=== PATIENT | female | born 1955 | race Caucasian/White ===

== ENCOUNTER → 2018-04-21 | Outpatient (CLI) | payer MEDICARE, MEDICAID ==
[~2018-04-21] VITALS: Ht 154.9 cm; Wt 133.8 kg
[~2018-04-21] MED LIST: ACET-2650 PO; ASPI-586 PO; CANA100T PO; CARV12.53 PO; ENAL20TA PO; FISH1CAP15 PO; GABA-486 PO; GLUC-173 PO; MAGN400T39 PO; METF-399 PO; OMEP20CA12 PO; POTA10CA43 PO; REGADENOSON 0.4 MG/5 ML SYR (LEXISCAN) IV ONE; ROPI2TAB4 PO; SIMV20TA3 PO; VNL75T PO
[2018-04-21] MEDS: CATHETER FLUSH 10 ML SYR IV PRN ×2 (07:53→09:06)
[2018-04-21 09:04] VITALS: BP 145/74
--- NOTE | 2018-04-21 14:08 | Cardiology Stress Test Report ---
Stress Test Report Type of NM Stress Test: Test Type: LEXISCAN 0.4MG/5ML Date of Procedure/Referring: Date of Procedure: Apr 21, 2018 PCP Eliane Helms MD Admitting Physician Tu Landeros MD Indications: Preoperative cardiovascular risk assessment. Baseline Heart Rate: 54 Baseline Blood Pressure: Blood Pressure Systolic: 145 Blood Pressure Diastolic: 74 Baseline EKG: Baseline EKG: sinus rhythm Summary & Conclusion: Summary: The patient was brought to the stress lab after informed consent was taken. Stress test was performed according to the Lexiscan protocol. 0.4 mg of IV Lexiscan was given. Low-grade exercise was performed. Baseline EKG showed sinus rhythm at 54 BPM. Initial blood pressure was 145/74 mmHg. Maximum heart rate was 83 bpm and blood pressure 115/59 mmHg. Patient did not have any chest pain, arrhythmias or ST segment changes during the stress test. 10.41 mCi of Myoview were given for rest imaging and 32.9 mCi of Myoview given for stress imaging. Transient ischemic dilatation score 1.14, EF 69 percent. Normal wall motion. Mild to moderate intermediate intensity anterior reversible defect. Conclusion: Pharmacological stress test was negative for ischemia. Normal LV function with no wall motion abnormalities. Evidence of anterior ischemia. Coronary angiography is recommended. Eliane HELMS MD Apr 21, 2018 2:08 pm
== END ==
LOC: CARD 07:06
PROVIDERS: ATTEND Internal Medicine Interventional Cardiology
DX: Z01.810 Encounter for preprocedural cardiovascular examination (principal); E11.9 Type 2 diabetes mellitus without complications; I10 Essential (primary) hypertension; E78.5 Hyperlipidemia, unspecified; E66.01 Morbid (severe) obesity due to excess calories; R94.31 Abnormal electrocardiogram [ECG] [EKG]; I25.9 Chronic ischemic heart disease, unspecified
CPT/HCPCS: 78452; 93017; 93306

== ENCOUNTER 2018-04-25 11:32 | Day surgery (SDC) | payer MEDICARE, MEDICAID ==
[2018-04-25] VITALS (11 sets, daily range): BP systolic 94–130; BP diastolic 40–63
[~2018-04-25] VITALS: Ht 154.9 cm; Wt 133.8 kg
--- OUTSIDE RECORDS SUMMARY | 2018-04-25 11:36 | XMS REPORT ---
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 Name Role Phone MADDY BROWNLEE Unavailable PROBLEMS Type Condition ICD9-CM Code [id number] Code Onset Dates Condition Status SNOMED Code Problem Depressive disorder, not elsewhere classified F32.9 Active [id number] ALLERGIES No Information ENCOUNTERS Encounter Location Date Diagnosis [facility] [address] [facility] [id number] [address] Feb, Depressive disorder, not elsewhere classified F32.9 IMMUNIZATIONS No Known Immunizations SOCIAL HISTORY Never Assessed REASON FOR VISIT Bariatric Eval PLAN OF CARE Activity Details Follow Up prn Reason:BH F/U VITAL SIGNS MEDICATIONS Unknown Medications RESULTS No Results PROCEDURES Procedure Date Ordered Result Body Site Psych diagnostic evaluation, new patient Feb 21, 2018 INSTRUCTIONS MEDICATIONS ADMINISTERED No Known Medications
--- OUTSIDE RECORDS SUMMARY | 2018-04-25 11:36 | XMS REPORT ---
Author Author [employer] [facility] Medical Staff Organization [facility] Address [address], [place] [address] Phone [phone] Summary purpose TRANSITION OF CARE AUTO GENERATION Chief Complaint and Reason for Visit No authorized Reason for Visit (Admitting Diagnosis) is available for this visit. Problem list No authorized problems tracked for continuity of care are available for this visit. Encounters No authorized problems tracked for encounter diagnoses are available for this visit. Medications No medications recorded for this patient visit Allergies, adverse reactions, alerts Allergen Category Ingredient Status Reaction Severity Onset KEFLEX Drug Allergy KEFLEX Confirmed or Verified ITCHING Doxycycline Drug Allergy Doxycycline Confirmed or Verified ITCHING Sulindac Drug Allergy Sulindac Confirmed or Verified ITCHING Tricor Drug Allergy Tricor Confirmed or Verified itching-shortness of breathe Tricor Drug Allergy Fenofibrate Confirmed or Verified itching-shortness of breathe Vibra-Tabs Drug Allergy Vibra-Tabs Confirmed or Verified itching Vibra-Tabs Drug Allergy doxycycline Confirmed or Verified itching Ambien Drug Allergy Ambien Confirmed or Verified Ambien Drug Allergy Zolpidem Confirmed or Verified Immunizations No immunizations recorded for this patient visit Relevant diagnostic tests and/or laboratory data RESULTS Radiology Results [id number] Bilateral Screen Digital Mammo PACs Image DATE OF EXAM: 2014 [facility] 0845-BILAT SCREEN DIG MAMMO : RADIOLOGY REPORT DATE OF SERVICE: 01/29/15 HISTORY: Screening exam BILATERAL DIGITAL SCREENING MAMMOGRAM WITH iCAD SecondLook 7.2-H+ 0850 HOURS There are fatty involutional changes. There are no masses or grouped microcalculi. There are numerous scattered benign breast calcifications bilaterally. There is no distortion or asymmetry. The appearance is stable when compared with 01/15/2014 and 07/06/2011. IMPRESSION: Negative mammograms BI-RADS I. MD ANTWAN Burns/sd01/29/2015 11:39:00 / 01/29/2015 12:12:45 cc:Dr. Tu Landeros This document has been electronically Signed by: On: DATE OF EXAM: 2014 [facility] 0845-BILAT SCREEN DIG MAMMO : RADIOLOGY REPORT DATE OF SERVICE: 01/29/15 HISTORY: Screening exam BILATERAL DIGITAL SCREENING MAMMOGRAM WITH iCAD SecondLook 7.2-H+ 0850 HOURS There are fatty involutional changes. There are no masses or grouped microcalculi. There are numerous scattered benign breast calcifications bilaterally. There is no distortion or asymmetry. The appearance is stable when compared with 01/15/2014 and 07/06/2011. IMPRESSION: Negative mammograms BI-RADS I. Jez Johnson MD Tan/sd01/29/2015 11:39:00 / 01/29/2015 12:12:45 cc:Dr. Tu Landeros This document has been electronically Signed by: JEZ JOHNSON On: 20141:59P Result Amended on 2015-01-29 at 13:59:11. Previous status was [place]. History of procedures No procedures recorded for this patient visit. Functional status No functional or cognitive status observations are available for this visit. Vital signs No authorized vital signs are available for this visit. Social history No Social History or smoking status observations were recorded for this visit. ( Unknown if ever smoked.) Treatment Plan No treatment plan text is available for this visit. Hospital discharge instructions No discharge instruction text is available for this visit.
--- OUTSIDE RECORDS SUMMARY | 2018-04-25 11:36 | XMS REPORT ---
Author Author [employer] [facility] Medical Staff Organization [facility] Address [address] [place], [place] [id number] Phone [phone] Summary purpose TRANSITION OF CARE AUTO GENERATION Chief Complaint and Reason for Visit Admit Diagnosis 1 OT SCREEN MAMMOGRAM Problem list No authorized problems tracked for [...] tests and/or laboratory data RESULTS Radiology Results [id number] Bilateral Screen Digital Mammo PACs Image DATE OF EXAM: 2014 [facility] 0845-BILAT SCREEN DIG MAMMO : RADIOLOGY REPORT [...] IMPRESSION: Negative mammograms BI-RADS I. MD ANTWAN Burns/in01/29/2015 11:39:00 / 01/29/2015 12:12:45 cc:Dr. Tu Sharma This document has been electronically Signed by: On: DATE OF EXAM: 2014 [facility] 0845-BILAT SCREEN DIG MAMMO : RADIOLOGY REPORT [...] IMPRESSION: Negative mammograms BI-RADS I. MD ANTWAN Burns/in01/29/2015 11:39:00 / 01/29/2015 12:12:45 cc:Dr. Tu Sharma This document has been electronically Signed by: MAYRA DICKERSON On: 20141:59P Result Amended on 2015-01-29 at 13:59:11. Previous status was [place]. History of procedures Procedure Code Code Type Description Date Performed Performing Physician 76644 CPT-4 MAMMOGRAM, SCREENING 01-29-2015 TU SHARMA [id number] CPT-4 COMP SCREEN MAMMOGRAM ADD-ON 01-29-2015 TU SHARMA Functional status No functional or cognitive status [...]
--- OUTSIDE RECORDS SUMMARY | 2018-04-25 11:38 | XMS REPORT | Clinical Summary ---
Author Author Admin, SACHI Organization [employer] Address Unknown Phone Unavailable Allergies, Adverse Reactions, Alerts Allergy Name Reaction Description Start Date Severity Status Provider GLIMPERIDE Critical Active Lesli Kellogg APRN AMBIEN migraine h/a Critical Active Luisa Reynolds RN AMBEIN migraine h/a Moderate No Longer Active Tu Landeros MD TRICOR rash, trouble breathing Critical Active Tu Landeros MD SULINDAC Critical Active Tu Landeros MD DOXYCYCLINE Critical Active Tu Landeros MD KEFLEX Critical Active Tu Landeros MD Conditions or Problems Problem Name Problem Code Onset Date Status Entry Date Provider Comment Standard Description Annotate Depression 311 Active Tu Landeros MD Depressive disorder, not elsewhere classified HYPERLIPIDEMIA, OTHER UNSPECIFIED 272.4 Inactive Tu Landeros MD Other and unspecified hyperlipidemia Hyperlipidemia 272.4 Refinement Tu Landeros MD Other and unspecified hyperlipidemia Mixed hyperlipidemia 272.4 Active Tu Landeros MD Other and unspecified hyperlipidemia POSTMENOPAUSAL BLEEDING 627.1 Resolved Elvira Cervantes MD PhD Postmenopausal bleeding DIABETES MELLITUS, TYPE II 250.00 Inactive Tu Landeros MD Diabetes mellitus without mention of complication, type II or unspecified type, not stated as uncontrolled Diabetes mellitus, type II, controlled 250.00 Inactive Tu Landeros MD Diabetes mellitus without mention of complication, type II or unspecified type, not stated as uncontrolled Type 2 diabetes mellitus with other specified complication 250.80 Active Tu Landeros MD Diabetes mellitus with other specified manifestations, type II or unspecified type, not stated as uncontrolled HEALTH SCREENING V70.0 Inactive Elvira Cervantes MD PhD Routine general medical examination at a health care facility SLEEP APNEA, OBSTRUCTIVE 327.23 Inactive Tu Landeros MD Obstructive sleep apnea (adult) (pediatric) Obstructive sleep apnea 327.23 Active Tu Landeros MD Obstructive sleep apnea (adult) (pediatric) INSOMNIA, PERSISTENT 307.42 Resolved Tu Landeros MD Persistent disorder of initiating or maintaining sleep GASTROENTERITIS 558.9 Resolved Tu Landeros MD Other and unspecified noninfectious gastroenteritis and colitis DIZZINESS 780.4 Resolved Tu Landeros MD Dizziness and giddiness BENIGN PAROXYSMAL POSITIONAL VERTIGO 386.11 Resolved Tu Landeros MD Benign paroxysmal positional vertigo HYPERTENSION 401.1 Inactive Tu Landeros MD Benign essential hypertension Hypertension 401.9 Inactive Tu Landeros MD Unspecified essential hypertension Hypertension, benign essential 401.1 Active Tu Landeros MD Benign essential hypertension LEG CRAMPS, NOCTURNAL 729.82 Resolved Tu Landeros MD Cramp of limb FREQUENCY, URINARY 788.41 Correction Elvira Cervantes MD PhD Urinary frequency FEVER UNSPECIFIED 780.60 Resolved Tu Landeros MD Fever, unspecified MUSCLE SPASM 728.85 Resolved Tu Landeros MD Spasm of muscle SCIATICA 724.3 Resolved Tu Landeros MD Sciatica SHOULDER PAIN, LEFT 719.41 Resolved Tu Landeros MD Pain in joint involving shoulder region PARESTHESIA 782.0 Resolved Tu Landeros MD Disturbance of skin sensation RASH AND OTHER NONSPECIFIC SKIN ERUPTION 782.1 Resolved Tu Landeros MD Rash and other nonspecific skin eruption FATIGUE 780.79 Resolved Tu Landeros MD Other malaise and fatigue CARPAL TUNNEL SYNDROME 354.0 Resolved Tu Landeros MD Carpal tunnel syndrome ARTHRITIS 716.90 Resolved Tu Landeros MD Arthropathy, unspecified, site unspecified KNEE PAIN 719.46 Resolved Tu Landeros MD Pain in joint involving lower leg CONTUSION OF UNSPECIFIED SITE 924.9 Resolved Tu Landeros MD Contusion of unspecified site PRESSURE ULCER UNSPECIFIED SITE 707.00 Resolved Tu Landeros MD Pressure ulcer, unspecified site LOCALIZED SUPERFICIAL SWELLING MASS OR LUMP 782.2 Resolved 03/15 Tu Landeros MD Localized superficial swelling, mass, or lump HEALTH SCREENING V70.0 Inactive Shaun Sy MD Routine general medical examination at a health care facility Health screening V70.0 Refinement Tu Landeros MD Routine general medical examination at a health care facility Well Adult Exam V70.0 Active Tu Landeros MD Routine general medical examination at a health care facility ONYCHOMYCOSIS 110.1 Resolved Tu Landeros MD Dermatophytosis of nail Gastroesophageal reflux disease 530.81 Active Tu Landeros MD Esophageal reflux Restless leg syndrome 333.94 Active Tu Landeros MD Restless legs syndrome (RLS) Open wound of abdominal wall, anterior, complicated 879.3 Resolved Tu Landeros MD Open wound of abdominal wall, anterior, complicated Neuropathy, idiopathic peripheral 356.9 Active Tu Landeros MD Unspecified hereditary and idiopathic peripheral neuropathy Upper respiratory infection, viral 465.9 Resolved Shaun Sy MD Acute upper respiratory infections of unspecified site Open wound of other and unspecified parts of trunk, complicated 879.7 Resolved Tu Landeros MD Open wound of other and unspecified parts of trunk, complicated Knee pain, left, acute 719.46 Resolved Tu Landeros MD Pain in joint involving lower leg Osteoarthritis 715.90 Resolved Tu Landeros MD Osteoarthrosis, unspecified whether generalized or localized, involving unspecified site Ear pain, bilateral 388.70 Resolved Tu Landeros MD Otalgia, unspecified Hot flashes 627.2 Resolved Tu Landeros MD Symptomatic menopausal or female climacteric states Sebaceous cyst 706.2 Resolved Tu Landeros MD Sebaceous cyst Leg edema, bilateral 782.3 Active Tu Landeros MD Edema Routine gynecological examination V72.31 Active Tu Landeros MD Routine gynecological examination Upper respiratory infection, viral 465.9 Resolved Tu Landeros MD Acute upper respiratory infections of unspecified site Sinusitis - acute 461.9 Resolved Tu Landeros MD Acute sinusitis, unspecified Leg pain, left 729.5 Resolved Tu Landeros MD Pain in limb Vision impairment, both eyes, impairment level not further specified 369.20 Resolved Tu Landeros MD Moderate or severe vision impairment, both eyes, impairment level not further specified Osteoarthritis, knees, bilateral 715.96 Active Tu Landeros MD Osteoarthrosis, unspecified whether generalized or localized, involving lower leg Obesity 278.00 Inactive Tu Landeros MD Obesity, unspecified Morbid obesity 278.01 Active Tu Landeros MD Morbid obesity Pain in unspecified foot 729.5 Resolved Tu Landeros MD Pain in limb Shoulder pain, right 719.41 Resolved Tu Landeros MD Pain in joint involving shoulder region Great toe pain 729.5 Resolved Tu Landeros MD Pain in limb Hypomagnesemia 275.2 Active Tu Landeros MD Disorders of magnesium metabolism URI 465.9 Inactive eLsli Kellogg [employer] Acute upper respiratory infections of unspecified site Upper respiratory infection, viral 465.9 Resolved Tu Landeros MD Acute upper respiratory infections of unspecified site Body Mass Index 50.0-59.9 Adult Active Tu Landeros MD Body Mass Index 50.0-59.9, adult Wrist pain, left 719.43 Active Tu Landeros MD Pain in joint involving forearm POSTMENOPAUSAL BLEEDING ICD-627.1 Inactive Elvira Cervantes MD PhD HEALTH SCREENING ICD-V70.0 Inactive Elvira Cervantes MD PhD 2011 INSOMNIA, PERSISTENT ICD-307.42 Inactive Tu Landeros MD GASTROENTERITIS ICD-558.9 Inactive Tu Landeros MD DIZZINESS ICD-780.4 Inactive Tu Landeros MD BENIGN PAROXYSMAL POSITIONAL VERTIGO ICD-386.11 Inactive Tu Landeros MD LEG CRAMPS, NOCTURNAL ICD-729.82 Inactive Tu Landeros MD FREQUENCY, URINARY ICD-788.41 Inactive Elvira Cervantes MD PhD FEVER UNSPECIFIED ICD-780.60 Inactive Tu Landeros MD MUSCLE SPASM ICD-728.85 Inactive Tu Landeros MD SCIATICA ICD-724.3 Inactive Tu Landeros MD 2012 SHOULDER PAIN, LEFT ICD-719.41 Inactive Tu Landeros MD PARESTHESIA ICD-782.0 Inactive Tu Landeros MD RASH AND OTHER NONSPECIFIC SKIN ERUPTION ICD-782.1 Inactive Tu Landeros MD FATIGUE ICD-780.79 Inactive Tu Landeros MD 2012 CARPAL TUNNEL SYNDROME ICD-354.0 Inactive Tu Landeros MD ARTHRITIS ICD-716.90 Inactive Tu Lanedros MD KNEE PAIN ICD-719.46 Inactive Tu Landeros MD CONTUSION OF UNSPECIFIED SITE ICD-924.9 Inactive Tu Landeros MD PRESSURE ULCER UNSPECIFIED SITE ICD-707.00 Inactive Tu Landeros MD LOCALIZED SUPERFICIAL SWELLING MASS OR LUMP ICD-782.2 Inactive Tu Landeros MD ONYCHOMYCOSIS ICD-110.1 Tessa Landeros MD Open wound of abdominal wall, anterior, complicated ICD-879.3 Inactive Tu Landeros MD Upper respiratory infection, viral ICD-465.9 Inactive Shaun Sy MD Open wound of other and unspecified parts of trunk, complicated ICD-879.7 Inactive Tu Landeros MD Knee pain, left, acute ICD-719.46 Tessa Landeros MD Osteoarthritis ICD-715.90 Inactive Tu Landeros MD Ear pain, bilateral ICD-388.70 Inactive Tu Landeros MD Hot flashes ICD-627.2 Inactive Tu Landeros MD Sebaceous cyst ICD-706.2 Inactive Tu Landeros MD Upper respiratory infection, viral ICD-465.9 Inactive Tu Landeros MD Sinusitis - acute ICD-461.9 Inactive Tu Landeros MD Leg pain, left ICD-729.5 Inactive Tu Landeros MD Vision impairment, both eyes, impairment level not further specified ICD- 369.20 Inactive Tu Landeros MD Pain in unspecified foot ICD-729.5 Inactive Tu Landeros MD Shoulder pain, right ICD-719.41 Inactive Tu Landeros MD Great toe pain ICD-729.5 Inactive Tu Landeros MD Upper respiratory infection, viral ICD-465.9 Inactive Tu Landeros MD Medication List Medication Instructions Start Date Stop Date Generic Name NDC Status Provider Patient Instruction LOVAZA 1 GM ORAL CAPSULE 1 po qd [id number] ETHYL ESTERS 39886101053 Active Tu Landeros MD Active TRILIPIX 135 MG ORAL CAPSULE DELAYED RELEASE 1 q hs CHOLINE FENOFIBRATE 51101125882 No Longer Active Cynthia NUNOA Active TRIAMCINOLONE ACETONIDE 0.1 % EXTERNAL CREAM Apply to affected area TID for up to 2 weeks TRIAMCINOLONE ACETONIDE 71251950402 Active Tu Landeros MD Active INDOMETHACIN 50 MG ORAL CAPSULE 1 po TID PRN Pain INDOMETHACIN 56760220326 Active Tu Landeros MD Active PROMETHAZINE-CODEINE 6.25-10 MG/5ML ORAL SYRUP 5ml po q6hr PRN Cough PROMETHAZINE-CODEINE 29198643992 No Longer Active Tu Landeros MD Active AZITHROMYCIN 250 MG ORAL TABLET 2 po qd x 1, then 1 po qd x 4 AZITHROMYCIN 77630477817 No Longer Active Tu Landeros MD Active GUAIFENESIN ER 600 MG ORAL TABLET EXTENDED RELEASE 12 HOUR 1 twice a day as needed for congestion GUAIFENESIN 82108376089 No Longer Active Tu Landeros MD Active PREDNISONE 20 MG ORAL TABLET 2 po qd x 5 days PREDNISONE 44609533043 No Longer Active Tu Landeros MD Active FLUTICASONE PROPIONATE 50 MCG/ACT NASAL SUSPENSION 2 sprays/nostril qd PRN Congestion/Allergies FLUTICASONE PROPIONATE 76472298190 Active Tu Landeros MD Active NASONEX 50 MCG/ACT NASAL SUSPENSION 2 actuations in each nostril q day 07/15 MOMETASONE FUROATE 97073730083 No Longer Active Tu Landeros MD Active MAGNESIUM OXIDE 400 MG ORAL TABLET 1 po BID MAGNESIUM OXIDE 89950641646 Active Tu Landeros MD Active SIMVASTATIN 20 MG ORAL TABLET 0.5 po qHS SIMVASTATIN 51516680755 Active Tu Landeros MD Active DICLOFENAC SODIUM 75 MG ORAL TABLET DELAYED RELEASE 1 po BID PRN Pain DICLOFENAC SODIUM 35703014474 No Longer Active Tu Landeros MD Active GABAPENTIN 100 MG ORAL CAPSULE 1 po TID GABAPENTIN 09364389413 Active Tu Landeros MD Active DICLOFENAC SODIUM 50 MG ORAL TABLET DELAYED RELEASE 1 po BID PRN Pain DICLOFENAC SODIUM 51762746530 No Longer Active Tu Landeros MD Active CYCLOBENZAPRINE HCL 10 MG ORAL TABLET 1 po TID PRN Muscle Spasm CYCLOBENZAPRINE HCL 78092691088 No Longer Active Tu Landeros MD Active INVOKANA 100 MG ORAL TABLET 1 po qd CANAGLIFLOZIN 30403544748 Active José Luis Becerra MD Active GLIPIZIDE 5 MG ORAL TABLET 1 po qd GLIPIZIDE 56645425035 No Longer Active Tu Landeros MD Active VENLAFAXINE HCL 75 MG ORAL TABLET 1 po BID VENLAFAXINE HCL 98871672943 Active Tu Landeros MD Active GLIMEPIRIDE 1 MG ORAL TABLET 1 po qd GLIMEPIRIDE 62824645108 No Longer Active Tu Landeros MD Active TRUE METRIX BLOOD GLUCOSE TEST IN VITRO STRIP Test blood sugar BID Dx: E11.9 GLUCOSE BLOOD 87781101500 Active Tu Landeros MD Active TRUE METRIX AIR GLUCOSE METER w/Device KIT Test blood glucose BID Dx: E11.9 BLOOD GLUCOSE MONITORING SUPPL 16375485412 Active Tu Landeros MD Active TRUETEST TEST IN VITRO STRIP test blood sugar twice daily. DX 250.0 GLUCOSE BLOOD 58787085568 No Longer Active Mirna Stanley LPN Active TRUEDRAW LANCING DEVICE test blood sugar twice daily dx: 250.00 LANCET DEVICES 54988290722 No Longer Active Mirna Stanley LPN Active ENALAPRIL MALEATE 20 MG ORAL TABLET 2 po qd ENALAPRIL MALEATE 36339861847 Active Tu Landeros MD Active SUPER B COMPLEX/VITAMIN C ORAL TABLET 1 qd B COMPLEX- C 98275642856 No Longer Active Tu Landeros MD Active ASPIRIN EC 81 MG ORAL TABLET DELAYED RELEASE 1 po qd ASPIRIN 19294047034 Active Tu Landeros MD Active GLUCOSAMINE 500 MG TABS 2 po qd GLUCOSAMINE Active Tu Landeros MD Active FISH OIL 1000 MG ORAL CAPSULE 1 po qd OMEGA-3 FATTY ACIDS 14475643435 Active Tu Landeros MD Active METFORMIN HCL 1000 MG ORAL TABLET 1 po BID METFORMIN HCL 10312274656 Active Tu Landeros MD Active KLOR-CON 10 10 MEQ ORAL TABLET EXTENDED RELEASE 2 po qd POTASSIUM CHLORIDE 59395069375 Active Tu Landeros MD Active FUROSEMIDE 40 MG ORAL TABLET 1 po qd FUROSEMIDE 77323355193 Active Tu Landeros MD Active REQUIP 2 MG ORAL TABLET 1 po qHS PRN Restless legs ROPINIROLE HCL 18145343836 Active Tu Landeros MD Active REQUIP 2 MG ORAL TABLET Take one tablet at bedtime prn ROPINIROLE HCL 51762374537 No Longer Active Tu Landeros MD Active VENTOLIN HFA 108 (90 Base) MCG/ACT INHALATION AEROSOL SOLUTION 1-2 puffs every 4 hours if needed for cough/congestion ALBUTEROL SULFATE 06380993342 No Longer Active Ambika Aden APRN Active ZITHROMAX 250 MG ORAL TABLET 2 po today, then 1 po q days 2-5 AZITHROMYCIN 79140770956 No Longer Active Miranda Farah APRN Active FLONASE 50 MCG/ACT NASAL SUSPENSION 1 spray each nostril twice daily until bottle empty FLUTICASONE PROPIONATE 63751902791 No Longer Active Tu Landeros MD Active COLACE 100 MG ORAL CAPSULE 1 po BID PRN Constipation DOCUSATE SODIUM 76325600309 Active Tu Landeros MD Active TRUERESULT BLOOD GLUCOSE w/Device KIT test blood sugar twice daily dx 250.00 BLOOD GLUCOSE MONITORING SUPPL 35145477063 No Longer Active Tu Landeros MD Active TRUEDRAW LANCING DEVICE Test twice a day dx 250.0 LANCET DEVICES 67998077852 No Longer Active Tu Landeros MD Active PREDNISONE 20 MG ORAL TABLET 2 tablets once daily for 2 days, then 1 tablet once daily for 2 days PREDNISONE 89624569985 No Longer Active Tu Landeros MD Active DICLOFENAC SODIUM 50 MG ORAL TABLET DELAYED RELEASE 1 tablet by mouth three times a day as needed DICLOFENAC SODIUM 45598871176 No Longer Active Fab Morales DO Active EMBRACE BLOOD GLUCOSE TEST IN VITRO STRIP test blood sugar twice daily DX 250.0 GLUCOSE BLOOD 06704294479 No Longer Active Tu Landeros MD Active TRUETEST TEST IN VITRO STRIP test blood sugar three times daily dx: 250.00 GLUCOSE BLOOD 53267548861 No Longer Active Suze VOGEL Active TRUERESULT BLOOD GLUCOSE w/Device KIT use to test blood sugar tid dx: 250.00 BLOOD GLUCOSE MONITORING SUPPL 38305878386 No Longer Active Suzebianca VOGEL Active ALIGN 4 MG ORAL CAPSULE 1 tid PROBIOTIC PRODUCT 60999454898 No Longer Active Shaun Sy MD Active CIPRO 500 MG ORAL TABLET 1 bid x 14 days start 09-28-13 CIPROFLOXACIN HCL 40410093189 No Longer Active Shaun Sy MD Active TRAMADOL HCL 50 MG ORAL TABLET 1-2 tablets every 6 hours as needed for pain TRAMADOL HCL 56204536686 Active Tu Landeros MD Active HYDROCODONE-ACETAMINOPHEN 5-325 MG ORAL TABLET 1 tab by mouth every 6 hours as needed for pain HYDROCODONE-ACETAMINOPHEN 22928267730 No Longer Active Tu Landeros MD Active OMEPRAZOLE 20 MG ORAL CAPSULE DELAYED RELEASE 1 po q a.m. OMEPRAZOLE 53168141134 Active Tu Landeros MD Active GABAPENTIN 100 MG ORAL CAPSULE 1 po bid GABAPENTIN 89298562580 No Longer Active Tu Landeros MD Active B-12 100 MCG ORAL TABLET Take one by mouth daily CYANOCOBALAMIN 21119579651 No Longer Active Tu Landeros MD Active BACTRIM DS 800-160 MG ORAL TABLET 1 bid x 14 day start 09-28-13 SULFAMETHOXAZOLE-TRIMETHOPRIM 78712106267 No Longer Active Tu Landeros MD Active CARVEDILOL 12.5 MG ORAL TABLET 1 po BID CARVEDILOL 33934106511 Active Tu Landeros MD Active FENOFIBRATE 145 MG ORAL TABLET 1 po qd FENOFIBRATE 02438525422 No Longer Active JASPREET Perez Active OMEPRAZOLE 20 MG ORAL TABLET DELAYED RELEASE 1 PO 30 MIN BEFORE 1ST MEAL 2010 OMEPRAZOLE 09370026646 No Longer Active JASPREET Perez Active SIMVASTATIN 40 MG ORAL TABLET Take one by mouth daily SIMVASTATIN 53879431873 No Longer Active JASPREET Perez Active VENLAFAXINE HCL 75 MG ORAL TABLET 1 po BID VENLAFAXINE HCL 40690582136 No Longer Active JASPREET Perez Active CIPRO 500 MG ORAL TABLET 1 tablet by mouth twice daily CIPROFLOXACIN HCL 33581777907 No Longer Active Tu Landeros MD Active VENLAFAXINE HCL 37.5 MG ORAL TABLET 1 po BID VENLAFAXINE HCL 83991632583 No Longer Active Suze NUNOA Active LAMISIL 250 MG ORAL TABLET 1 po qd TERBINAFINE HCL 92235828113 No Longer Active Tu Landeros MD Active LORTAB 5-500 MG ORAL TABLET 1/2 to 1 tablet by mouth every 4 hours as needed for pain HYDROCODONE-ACETAMINOPHEN 30632927823 No Longer Active Tu Landeros MD Active HYDROCODONE-ACETAMINOPHEN 5-500 MG ORAL TABLET take one po Q 4-6 hours prn HYDROCODONE-ACETAMINOPHEN 01537614820 No Longer Active Tu Landeros MD Active BACTRIM DS 800-160 MG ORAL TABLET 1 po BID x 7 days SULFAMETHOXAZOLE-TRIMETHOPRIM 40666886253 No Longer Active Tu Landeros MD Active VENLAFAXINE HCL 75 MG ORAL TABLET 1 po BID VENLAFAXINE HCL 78263421902 No Longer Active Elvira Cervantes MD PhD Active TRAMADOL HCL 50 MG ORAL TABLET 1 tablets every 6 hours as needed for pain TRAMADOL HCL 74385360170 No Longer Active Tu Landeros MD Active ACCU-[place] FASTCLIX LANCETS Use to check bloodsugar three times daily as needed LANCETS 27609857140 No Longer Active Tu Landeros MD Active ACCU-[place]ED[place] KEYONA PLUS IN VITRO STRIP Use for testing bloodsugars three times daily as needed GLUCOSE BLOOD 62255958899 No Longer Active Tu Landeros MD Active ACCU-CHEK KEYONA PLUS w/Device KIT Use for testing bloodsugars three times daily as needed BLOOD GLUCOSE MONITORING SUPPL 93035213828 No Longer Active Tu Landeros MD Active SPIRONOLACTONE 25 MG ORAL TABLET 0.5 tablet by mouth daily 09/09 SPIRONOLACTONE 31283431089 No Longer Active Tu Landeros MD Active ALPRAZOLAM 0.5 MG ORAL TABLET 1 tab every 6hrs as needed ALPRAZOLAM 30856850883 No Longer Active Tu Landeros MD Active AUGMENTIN 875-125 MG ORAL TABLET 1 tab by mouth twice daily with food AMOXICILLIN-POT CLAVULANATE 39929583732 No Longer Active Tu Landeros MD Active PREDNISONE 20 MG ORAL TABLET 2 tabs daily for 3 days, 1 tab daily for 3 days, 1/2 tab daily for 2 days PREDNISONE 56981480013 No Longer Active Tu Landeros MD Active XANAX 0.5 MG ORAL TABLET 1 tablet every 6 hrs prn ALPRAZOLAM 00581298868 No Longer Active Tu Landeros MD Active PREDNISONE 20 MG ORAL TABLET 2 tabs daily for 3 days, 1 tab daily for 3 days, 1/2 tab daily for 2 days PREDNISONE 17987011463 No Longer Active Tu Landeros MD Active TRIAMCINOLONE ACETONIDE 0.1 % EXTERNAL OINTMENT Apply to affected areas TID for up to 2 weeks TRIAMCINOLONE ACETONIDE 93230112075 No Longer Active Tu Landeros MD Active LORTAB 5-500 MG ORAL TABLET 1/2 to 1 tablet by mouth every 4 hours as needed for pain HYDROCODONE-ACETAMINOPHEN 10469319863 No Longer Active Tu Landeros MD Active MULTIVITAMINS TABS Take one by mouth daily MULTIPLE VITAMIN 13910528910 No Longer Active Tu Landeros MD Active MELATONIN 5 MG ORAL TABLET Take one by mouth daily MELATONIN 59033790280 No Longer Active Tu Landeros MD Active SOMA 350 MG ORAL TABLET 1 po q 6 hours prn spasm CARISOPRODOL 53888085058 No Longer Active Tu Landeros MD Active MECLIZINE HCL 25 MG ORAL TABLET CHEWABLE 1 four times a day as needed for dizziness MECLIZINE HCL 25770718719 No Longer Active Fab Morales DO Active ANGEL BREEZE 2 TEST IN VITRO DISK test tid prn GLUCOSE BLOOD 47201387624 No Longer Active Negra Scott RN Active REGLAN 10 MG ORAL TABLET 1 po TID PRN Nausea METOCLOPRAMIDE HCL 01418674199 No Longer Active Tu Landeros MD Active METFORMIN HCL 500 MG ORAL TABLET 1 PO BID METFORMIN HCL 88028429086 No Longer Active Tu Landeros MD Active AMBIEN 10 MG ORAL TABLET 1 tab by mouth at bedtime as needed for sleep 06/10 ZOLPIDEM TARTRATE 90787627277 No Longer Active Tu Landeros MD Active FLUOXETINE HCL 40 MG ORAL CAPSULE 1 po q day FLUOXETINE HCL 71422914611 No Longer Active Mayra [place] Active TRILIPIX 135 MG ORAL CAPSULE DELAYED RELEASE 1 po qd CHOLINE FENOFIBRATE 80245266158 No Longer Active Tu Landeros MD Active AMBIEN 10 MG ORAL TABLET 1 tab by mouth at bedtime as needed for sleep 06/10 AMBIEN 10 MG ORAL TABLET 393532 ZOLPIDEM TARTRATE Inactive METFORMIN HCL 500 MG ORAL TABLET 1 PO BID METFORMIN HCL 500 MG ORAL TABLET 359176 METFORMIN HCL Inactive REGLAN 10 MG ORAL TABLET 1 po TID PRN Nausea REGLAN 10 MG ORAL TABLET 892585 METOCLOPRAMIDE HCL Inactive MECLIZINE HCL 25 MG ORAL TABLET CHEWABLE 1 four times a day as needed for dizziness MECLIZINE HCL 25 MG ORAL TABLET CHEWABLE 142975 MECLIZINE HCL Inactive SOMA 350 MG ORAL TABLET 1 po q 6 hours prn spasm SOMA 350 MG ORAL TABLET 007422 CARISOPRODOL Inactive MELATONIN 5 MG ORAL TABLET Take one by mouth daily MELATONIN 5 MG ORAL TABLET 018116 MELATONIN Inactive MULTIVITAMINS TABS Take one by mouth daily MULTIVITAMINS TABS MULTIPLE VITAMIN Inactive LORTAB 5-500 MG ORAL TABLET 1/2 to 1 tablet by mouth every 4 hours as needed for pain LORTAB 5-500 MG ORAL TABLET HYDROCODONE- ACETAMINOPHEN Inactive XANAX 0.5 MG ORAL TABLET 1 tablet every 6 hrs prn XANAX 0.5 MG ORAL TABLET 501431 ALPRAZOLAM Inactive AUGMENTIN 875-125 MG ORAL TABLET 1 tab by mouth twice daily with food AUGMENTIN 875-125 MG ORAL TABLET 034542 AMOXICILLIN-POT CLAVULANATE Inactive ALPRAZOLAM 0.5 MG ORAL TABLET 1 tab every 6hrs as needed ALPRAZOLAM 0.5 MG ORAL TABLET 925929 ALPRAZOLAM Inactive SPIRONOLACTONE 25 MG ORAL TABLET 0.5 tablet by mouth daily 09/09 SPIRONOLACTONE 25 MG ORAL TABLET 553510 SPIRONOLACTONE Inactive ACCU-CHEK KEYONA PLUS w/Device KIT Use for testing bloodsugars three times daily as needed ACCU-CHEK KEYONA PLUS w/Device KIT BLOOD GLUCOSE MONITORING SUPPL Inactive ACCU-CHEK KEYONA PLUS IN VITRO STRIP Use for testing bloodsugars three times daily as needed ACCU-CHEK KEYONA PLUS IN VITRO STRIP GLUCOSE BLOOD Inactive ACCU-CHEK FASTCLIX LANCETS Use to check bloodsugar three times daily as needed ACCU-CHEK FASTCLIX LANCETS 00289279064 LANCETS Inactive TRAMADOL HCL 50 MG ORAL TABLET 1 tablets every 6 hours as needed for pain TRAMADOL HCL 50 MG ORAL TABLET 738000 TRAMADOL HCL Inactive VENLAFAXINE HCL 75 MG ORAL TABLET 1 po BID VENLAFAXINE HCL 75 MG ORAL TABLET 904123 VENLAFAXINE HCL Inactive HYDROCODONE-ACETAMINOPHEN 5-500 MG ORAL TABLET take one po Q 4-6 hours prn HYDROCODONE-ACETAMINOPHEN 5-500 MG ORAL TABLET HYDROCODONE-ACETAMINOPHEN Inactive LORTAB 5-500 MG ORAL TABLET 1/2 to 1 tablet by mouth every 4 hours as needed for pain LORTAB 5-500 MG ORAL TABLET HYDROCODONE- ACETAMINOPHEN Inactive LAMISIL 250 MG ORAL TABLET 1 po qd LAMISIL 250 MG ORAL TABLET 890636 TERBINAFINE HCL Inactive VENLAFAXINE HCL 37.5 MG ORAL TABLET 1 po BID VENLAFAXINE HCL 37.5 MG ORAL TABLET 152873 VENLAFAXINE HCL Inactive CIPRO 500 MG ORAL TABLET 1 tablet by mouth twice daily CIPRO 500 MG ORAL TABLET 931635 CIPROFLOXACIN HCL Inactive VENLAFAXINE HCL 75 MG ORAL TABLET 1 po BID VENLAFAXINE HCL 75 MG ORAL TABLET 803268 VENLAFAXINE HCL Inactive SIMVASTATIN 40 MG ORAL TABLET Take one by mouth daily SIMVASTATIN 40 MG ORAL TABLET 890942 SIMVASTATIN Inactive OMEPRAZOLE 20 MG ORAL TABLET DELAYED RELEASE 1 PO 30 MIN BEFORE 1ST MEAL 2010 OMEPRAZOLE 20 MG ORAL TABLET DELAYED RELEASE 865517 OMEPRAZOLE Inactive FENOFIBRATE 145 MG ORAL TABLET 1 po qd FENOFIBRATE 145 MG ORAL TABLET 226248 FENOFIBRATE Inactive BACTRIM DS 800-160 MG ORAL TABLET 1 bid x 14 day start 09-28-13 BACTRIM DS 800-160 MG ORAL TABLET 747940 SULFAMETHOXAZOLE- TRIMETHOPRIM Inactive B-12 100 MCG ORAL TABLET Take one by mouth daily B-12 100 MCG ORAL TABLET CYANOCOBALAMIN Inactive GABAPENTIN 100 MG ORAL CAPSULE 1 po bid GABAPENTIN 100 MG ORAL CAPSULE 645951 GABAPENTIN Inactive HYDROCODONE-ACETAMINOPHEN 5-325 MG ORAL TABLET 1 tab by mouth every 6 hours as needed for pain HYDROCODONE-ACETAMINOPHEN 5-325 MG ORAL TABLET 894067 HYDROCODONE-ACETAMINOPHEN Inactive CIPRO 500 MG ORAL TABLET 1 bid x 14 days start 814 CIPRO 500 MG ORAL TABLET 566099 CIPROFLOXACIN HCL Inactive ALIGN 4 MG ORAL CAPSULE 1 tid ALIGN 4 MG ORAL CAPSULE PROBIOTIC PRODUCT Inactive TRUERESULT BLOOD GLUCOSE w/Device KIT use to test blood sugar tid dx: 250.00 TRUERESULT BLOOD GLUCOSE w/Device KIT BLOOD GLUCOSE MONITORING SUPPL Inactive TRUETEST TEST IN VITRO STRIP test blood sugar three times daily dx: 250.00 TRUETEST TEST IN VITRO STRIP GLUCOSE BLOOD Inactive EMBRACE BLOOD GLUCOSE TEST IN VITRO STRIP test blood sugar twice daily DX 250.0 EMBRACE BLOOD GLUCOSE TEST IN VITRO STRIP GLUCOSE BLOOD Inactive DICLOFENAC SODIUM 50 MG ORAL TABLET DELAYED RELEASE 1 tablet by mouth three times a day as needed DICLOFENAC SODIUM 50 MG ORAL TABLET DELAYED RELEASE 592077 DICLOFENAC SODIUM Inactive PREDNISONE 20 MG ORAL TABLET 2 tablets once daily for 2 days, then 1 tablet once daily for 2 days PREDNISONE 20 MG ORAL TABLET 148732 PREDNISONE Inactive TRUEDRAW LANCING DEVICE Test twice a day dx 250.0 TRUEDRAW LANCING DEVICE LANCET DEVICES Inactive TRUERESULT BLOOD GLUCOSE w/Device KIT test blood sugar twice daily dx 250.00 TRUERESULT BLOOD GLUCOSE w/Device KIT BLOOD GLUCOSE MONITORING SUPPL Inactive FLONASE 50 MCG/ACT NASAL SUSPENSION 1 spray each nostril twice daily until bottle empty FLONASE 50 MCG/ACT NASAL SUSPENSION [id number] FLUTICASONE PROPIONATE Inactive VENTOLIN HFA 108 (90 Base) MCG/ACT INHALATION AEROSOL SOLUTION 1-2 puffs every 4 hours if needed for cough/congestion VENTOLIN HFA 108 (90 Base) MCG/ACT INHALATION AEROSOL SOLUTION ALBUTEROL SULFATE Inactive REQUIP 2 MG ORAL TABLET Take one tablet at bedtime prn REQUIP 2 MG ORAL TABLET 901954 ROPINIROLE HCL Inactive SUPER B COMPLEX/VITAMIN C ORAL TABLET 1 qd SUPER B COMPLEX/VITAMIN C ORAL TABLET 20016417519 B COMPLEX-C Inactive TRUEDRAW LANCING DEVICE test blood sugar twice daily dx: 250.00 TRUEDRAW LANCING DEVICE LANCET DEVICES Inactive TRUETEST TEST IN VITRO STRIP test blood sugar twice daily. DX 250.0 TRUETEST TEST IN VITRO STRIP GLUCOSE BLOOD Inactive CYCLOBENZAPRINE HCL 10 MG ORAL TABLET 1 po TID PRN Muscle Spasm CYCLOBENZAPRINE HCL 10 MG ORAL TABLET 982280 CYCLOBENZAPRINE HCL Inactive DICLOFENAC SODIUM 50 MG ORAL TABLET DELAYED RELEASE 1 po BID PRN Pain DICLOFENAC SODIUM 50 MG ORAL TABLET DELAYED RELEASE 194061 DICLOFENAC SODIUM Inactive DICLOFENAC SODIUM 75 MG ORAL TABLET DELAYED RELEASE 1 po BID PRN Pain DICLOFENAC SODIUM 75 MG ORAL TABLET DELAYED RELEASE 836530 DICLOFENAC SODIUM Inactive NASONEX 50 MCG/ACT NASAL SUSPENSION 2 actuations in each nostril q day 07/15 NASONEX 50 MCG/ACT NASAL SUSPENSION 3283706 MOMETASONE FUROATE Inactive GUAIFENESIN ER 600 MG ORAL TABLET EXTENDED RELEASE 12 HOUR 1 twice a day as needed for congestion GUAIFENESIN ER 600 MG ORAL TABLET EXTENDED RELEASE 12 HOUR GUAIFENESIN Inactive AZITHROMYCIN 250 MG ORAL TABLET 2 po qd x 1, then 1 po qd x 4 AZITHROMYCIN 250 MG ORAL TABLET 968336 AZITHROMYCIN Inactive PROMETHAZINE-CODEINE 6.25-10 MG/5ML ORAL SYRUP 5ml po q6hr PRN Cough PROMETHAZINE-CODEINE 6.25-10 MG/5ML ORAL SYRUP 612651 PROMETHAZINE-CODEINE Inactive TRILIPIX 135 MG ORAL CAPSULE DELAYED RELEASE 1 q hs TRILIPIX 135 MG ORAL CAPSULE DELAYED RELEASE 122665 CHOLINE FENOFIBRATE Inactive TRIAMCINOLONE ACETONIDE 0.1 % EXTERNAL OINTMENT Apply to affected areas TID for up to 2 weeks TRIAMCINOLONE ACETONIDE 0.1 % EXTERNAL OINTMENT 3189997 TRIAMCINOLONE ACETONIDE Inactive PREDNISONE 20 MG ORAL TABLET 2 tabs daily for 3 days, 1 tab daily for 3 days, 1/2 tab daily for 2 days PREDNISONE 20 MG ORAL TABLET 811039 PREDNISONE Inactive PREDNISONE 20 MG ORAL TABLET 2 tabs daily for 3 days, 1 tab daily for 3 days, 1/2 tab daily for 2 days PREDNISONE 20 MG ORAL TABLET 669431 PREDNISONE Inactive BACTRIM DS 800-160 MG ORAL TABLET 1 po BID x 7 days BACTRIM DS 800-160 MG ORAL TABLET 518052 SULFAMETHOXAZOLE-TRIMETHOPRIM Inactive ZITHROMAX 250 MG ORAL TABLET 2 po today, then 1 po q days 2-5 ZITHROMAX 250 MG ORAL TABLET 484092 AZITHROMYCIN Inactive PREDNISONE 20 MG ORAL TABLET 2 po qd x 5 days PREDNISONE 20 MG ORAL TABLET 434215 PREDNISONE Inactive Advance Directives Directive Description Start Date DISCUSSED WITH PATIENT -- NO DECISION MADE Immunizations Vaccine Administration Date Value Standard Description Seasonal influenza vaccine, injectable, containing preservative, for > 3 years old (Afluria, FluLaval, Fluzone, Fluvirin, Fluarix, Agriflu(>=18 yo)) Fluzone (>3 yrs.) [[id number]] Influenza, seasonal, injectable influenza immunization (Flu Vax) has been administered 02/22/2012 influenza virus vaccine, unspecified formulation Seasonal influenza vaccine, injectable, containing preservative, for > 3 years old (Afluria, FluLaval, Fluzone, Fluvirin, Fluarix, Agriflu(>=18 yo)) Fluzone (>3 yrs.) [[id number]] Influenza, seasonal, injectable Vital Signs Date Name Value Unit Range Description blood pressure, diastolic 82 mm[Hg] BP ac blood pressure, systolic 134 mm[Hg] BP sys height E&M 60.25 [in_us] Bdy height pulse rate E&M 69 /min Heart rate temperature E&M 96.6 [degF] Body temperature weight E&M 297.5 [lb_av] Weight Measured blood pressure, diastolic 56 mm[Hg] BP ac blood pressure, systolic 150 mm[Hg] BP sys height E&M 60.25 [in_us] Bdy height pulse rate E&M 66 /min Heart rate temperature E&M 97.3 [degF] Body temperature weight E&M 299 [lb_av] Weight Measured blood pressure, diastolic 62 mm[Hg] BP ac blood pressure, systolic 145 mm[Hg] BP sys height E&M 60.25 [in_us] Bdy height pulse rate E&M 72 /min Heart rate temperature E&M 98.2 [degF] Body temperature weight E&M 300.50 [lb_av] Weight Measured blood pressure, diastolic 60 mm[Hg] BP ac blood pressure, systolic 142 mm[Hg] BP sys height E&M 60.25 [in_us] Bdy height pulse rate E&M 60 /min Heart rate temperature E&M 97.4 [degF] Body temperature weight E&M 292 [lb_av] Weight Measured blood pressure, diastolic 67 mm[Hg] BP ac blood pressure, systolic 143 mm[Hg] BP sys height E&M 60.25 [in_us] Bdy height pulse rate E&M 51 /min Heart rate temperature E&M 96.3 [degF] Body temperature weight E&M 295.31 [lb_av] Weight Measured blood pressure, diastolic 63 mm[Hg] BP ac blood pressure, systolic 148 mm[Hg] BP sys height E&M 60.25 [in_us] Bdy height pulse rate E&M 69 /min Heart rate temperature E&M 97.6 [degF] Body temperature weight E&M 295 [lb_av] Weight Measured Diagnostic Results Date Name Value Unit Range Description Lab Report: CBC, Comp. Metabolic Panel, HGBA1C, Lipid Panel, Magnesium, ... - Chemistry sodium, serum 141 mmol/L 530-265 8707/01/16 carbon dioxide, venous blood 28.3 mmol/L 21.0-32.0 potassium, serum 4.3 mmol/L 3.5-5.2 chloride, serum 103 mmol/L 98-107 blood glucose 108 mg/dL 65-110 urea nitrogen, blood 17 mg/dL 7-18 creatinine, serum 1.11 mg/dL 0.60-1.30 alanine aminotransferase (SGPT), serum 44 U/L 12-78 aspartate aminotransferase (SGOT), serum 34 U/L 15-37 calcium, serum 8.8 mg/dL 8.5-10.1 bilirubin, serum, total 0.30 mg/dL 0.00-1.00 hemoglobin A1C, blood, as % of total hemoglobin 6.7 % 4.3-6.0 cholesterol, serum 106 mg/dL [phone]/01/16 triglyceride, serum, fasting 173 mg/dL 30-200 HDL cholesterol, serum 29 mg/dL 32-60 LDL cholesterol, serum 42 mg/dL 0-130 albumin/creatinine ratio, urine <30 mg/g Normal mg/g mg/g{creat} 0-29 Lab Report: CBC, Comp. Metabolic Panel, HGBA1C, Lipid Panel, Magnesium, ... - Hematology leukocyte count, blood 6.9 10^3/MM^3 10*3/mm3 4.6-10.2 erythrocyte (RBC) count 4.70 10^6/MM^3 10*6/mm3 3.80-5.80 hemoglobin, blood 13.4 g/dL 12.0-16.0 hematocrit, blood 42.5 % 37.0-47.0 mean corpuscular volume, RBC 90 fL 80-97 mean corpuscular hemoglobin, RBC 28.4 pg 27.0-31.2 mean corpuscular hemoglobin concentration, RBC 31.5 G/DL % 31.8- 35.4 red blood cell distribution width 12.3 % 11.6-14.8 platelet count 312 10^3/MM^3 10*3/mm3 142-424 Lab Report: CBC, Comp. Metabolic Panel, HGBA1C, Lipid Panel, Magnesium, ... - Lab microalbumin, urine 10 mg/L 0-19 Lab Report: Comp. Metabolic Panel, HGBA1C, Magnesium - Chemistry sodium, serum 142 mmol/L 417-346 8175/07/16 carbon dioxide, venous blood 29.4 mmol/L 21.0-32.0 potassium, serum 4.7 mmol/L 3.5-5.2 chloride, serum 106 mmol/L 98-107 blood glucose 130 mg/dL 65-95 urea nitrogen, blood 19 mg/dL 7-18 creatinine, serum 0.95 mg/dL 0.60-1.30 alanine aminotransferase (SGPT), serum 36 U/L 12-78 aspartate aminotransferase (SGOT), serum 28 U/L 15-37 calcium, serum 9.1 mg/dL 8.5-10.1 bilirubin, serum, total 0.20 mg/dL 0.00-1.00 hemoglobin A1C, blood, as % of total hemoglobin 6.4 % 4.3-6.0 Lab Report: Lipid Panel - Chemistry cholesterol, serum 170 mg/dL 479-517 0703/07/16 triglyceride, serum, fasting 266 mg/dL 30-200 HDL cholesterol, serum 42 mg/dL 32-60 LDL cholesterol, serum 75 mg/dL 0-130 Encounters Code Encounter Date Provider Facility CPT-71873 Level 4 Est. Patient 14:46:36 CDT Tu Landeros MD [facility] CPT-36077 Level 3 Est. Patient 10:28:05 CDT Tu Landeros MD [facility] CPT-33770 Level 3 Est. Patient 09:11:32 CDT Tu Landeros MD [facility] CPT-33804 Level 3 Est. Patient 10:13:19 [employer]ICIAN Lesli Kellogg [facility] CPT-10293 Level 4 Est. Patient 13:42:02 [employer]OELECT[employer] ELECTRICIAN Tu Landeros MD [facility] CPT-49574 Level 3 Est. Patient 14:20:36 CDT Tu Landeros MD [facility] CPT-81657 Level 4 Est. Patient 14:28:34 CDT Tu Landeros MD [facility] CPT-51663 Level 3 Est. Patient 13:33:09 CDT Tu Landeros MD [facility] CPT-62475 Level 4 Est. Patient 14:29:21 CDT Tu Landeros MD [facility] CPT-65439 Level 4 Est. Patient 09:08:17 [employer]OE[employer]LECTRICIAN Tu Landeros MD [facility] CPT-17879 Level 4 Est. Patient 14:40:19 CDT Tu Landeros MD [facility] CPT-50369 Level 4 Est. Patient 14:06:04 [employer]OE[employer] ELECTRICIAN Tu Landeros MD [facility] CPT-72391 Level 3 Est. Patient 14:05:18 [employer]OE[employer] ELECTRICIAN Tu Landeros MD [facility] CPT-10714 Level 3 Est. Patient 10:06:54 [employer] ELECTRICIAN Miranda Farah [employer] [facility] CPT-80485 Level 4 Est. Patient 13:50:18 [employer]OE[employer] ELECTRICIAN Tu Landeros MD [facility] CPT-02540 Level 3 Est. Patient 10:30:04 CDT Tu Landeros MD [facility] CPT-08822 Level 4 Est. Patient 11:03:38 CDT Tu Landeros MD [facility] CPT-36583 Level 3 Est. Patient 10:20:44 CDT Fab Morales DO [facility] CPT-92045 Level 4 Est. Patient 14:38:57 CDT Tu Landeros MD [facility] CPT-59890 Level 4 Est. Patient 14:27:39 [employer]LECTRICIAN Tu Landeros MD [facility] CPT-20975 Level 4 Est. Patient 09:45:25 CDT Tu Landeros MD [facility] CPT-44250 Level 4 Est. Patient 09:05:20 [employer]OE[employer]RICIAN Tu Landeros MD [facility] CPT-28927 Level 4 Est. Patient 14:09:06 CDT Tu Landeros MD [facility] CPT-14722 Level 3 Est. Patient 13:36:54 CDT Tu Landeros MD [facility] CPT-13521 Level 3 Est. Patient 08:59:14 CDT Tu Landeros MD [facility] CPT-70702 Level 3 Est. Patient 13:48:35 CDT Fab Morales DO [facility] CPT-02298 Level 4 Est. Patient 10:05:48 CDT Tu Landeros MD [facility] CPT-41261 Level 3 Est. Patient 13:38:42 CDT Marek BANKS [facility] CPT-25185 Level 5 Est. Patient 08:08:39 CDT Jerrica FRANCIS [facility] CPT-76030 Level 4 Est. Patient 14:23:38 CDT Tu Landeros MD [facility] CPT-15302 Level 3 Est. Patient 11:44:04 CDT Tu Landeros MD [facility] CPT-75804 Level 3 Est. Patient 11:03:20 [employer]OE[employer]RICIAN Tu Landeros MD [facility] CPT-01501 Level 3 Est. Patient 11:03:14 [employer] E[employer]RICIAN Tu Landeros MD [facility] CPT-51110 Level 3 Est. Patient 12:42:49 CDT Tu Landeros MD [facility] CPT-79222 Level 3 Est. Patient 11:52:06 CDT Tu Landeros MD [facility] CPT-55001 Level 3 Est. Patient 13:58:11 CDT Tu Landeros MD [facility] CPT-24798 Level 3 Est. Patient 17:50:07 CDT Fab Morales DO [facility] CPT-73888 Level 3 Est. Patient 12:06:29 CDT Elvira Cervantes MD PhD [facility] CPT-04121 Level 3 Est. Patient 15:50:32 CDT Tu Landeros MD [facility] CPT-73192 Level 4 Est. Patient 16:08:29 CDT Tu Landeros MD [facility] CPT-42647 Level 3 Est. Patient 16:04:19 CDT Tu Landeros MD [facility] CPT-04788 Level 3 Est. Patient 11:22:30 [employer]RICIAN Tu Landeros MD [facility] CPT-77872 Level 4 Est. Patient 16:24:02 HY[employer]OE[employer] ELECTRICIAN Tu Landeros MD [facility] CPT-47125 Level 3 Est. Patient 17:21:23 [employer]RICIAN Tu Landeros MD [facility] Procedures Code Procedure Name Date Entry Date Standard Description CPT-G0439 [facility] Annual Wellness Exam 14:46:36 CDT CPT-92205 Shoulder, right, comp min 2V - XRAY USE ONLY 13:50:22 CDT CPT-G0009 Administration of Pneumococcal Vaccine 15:08:26 CDT CPT-91627 Prevnar 13 Intramuscular Suspension 15:08:26 CDT 10/08 CPT-G0439 Subsequent Annual Wellness Exam 14:29:22 CDT CPT-10666 Venipuncture Draw Fee 13:15:35 CDT CPT-05766 Magnesium - LAB USE ONLY 11:14:20 [employer]ICIAN CPT-61299 Lipid - LAB USE ONLY 11:14:20 [employer]RICIAN CPT-11477 HGBA1C - LAB USE ONLY 11:14:20 [employer]LECTRICIAN CPT-04566 CMP - LAB USE ONLY 11:14:19 [employer] ELECTRICIAN CPT-74040 CBC - LAB USE ONLY 11:14:19 [employer]RICIAN CPT-22715 Venipuncture Draw Fee 11:14:18 [employer] ELECTRICIAN CPT-91046 First Vx - Ix admin for Medicare patients 16:46:52 CDT CPT-37783 Fluzone Preservative Free Intramuscular Suspension 16:46 :51 CDT CPT-15732 CBC - LAB USE ONLY 17:14:46 CDT CPT-93394 HGBA1C - LAB USE ONLY 17:14:46 CDT CPT-98530 Venipuncture Draw Fee 17:14:46 CDT CPT-G0438 Initial Annual Wellness Exam 14:13:04 CDT CPT-09053 Breathing Tx 10:06:54 [employer]ICIAN CPT-42688 Postop F/U Visit 10:02:45 CDT CPT-LR Lesion Removal 09:02:56 CDT CPT-JTINJ Asp/Joint Injection 15:51:27 [employer]ICIAN CPT-OV Office Visit 15:52:02 [employer]ICIAN CPT-OV Office Visit 15:45:11 CDT CPT-000 Give Zostavax 14:09:06 CDT CPT-45637 Administration single or combination vaccine inc oral 15 :19:04 CDT CPT-84532 Zoster Vaccine (Zostavax) 15:19:04 CDT CPT-96354 Administration single or combination vaccine inc oral 20 :51:03 CDT CPT-55084 Influenza split virus > age 3 20:51:03 CDT CPT-52723 No Charge Offi Visit 14:52:03 CDT CPT-OV Office Visit 14:57:43 CDT CPT-OV Office Visit 15:22:32 CDT CPT-69001 Administration single or combination vaccine inc oral 11 :33:15 CDT CPT-35796 Influenza split virus > age 3 11:33:15 CDT
[2018-04-25] MEDS ORDERED: NS IV 1000 ML 1,000 ML ONE (11:40)
[2018-04-25] MEDS ORDERED: LIDOCAINE 1% INJ 20 ML 20 ML VIAL ONE (11:40)
[2018-04-25] MEDS ORDERED: HEParin (CATH LAB) 2,000 ML IV ONE (11:40)
--- OUTSIDE RECORDS SUMMARY | 2018-04-25 11:40 | XMS REPORT | Clinical Summary ---
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 Acute upper respiratory infections of unspecified site [...] Tu Landeros MD ARTHRITIS ICD-716.90 Inactive Tu Landeros MD KNEE PAIN ICD-719.46 Inactive Tu Landeros [...] 1 GM ORAL CAPSULE 1 po qd [id number] ETHYL ESTERS 15118103049 Active Tu Landeros MD Active TRILIPIX 135 MG ORAL CAPSULE DELAYED RELEASE 1 q hs CHOLINE FENOFIBRATE 70807978765 No Longer Active Cynthia NUNOA Active TRIAMCINOLONE ACETONIDE 0.1 % EXTERNAL CREAM Apply to affected area TID for up to 2 weeks TRIAMCINOLONE ACETONIDE 28574464362 Active Tu Landeros MD Active INDOMETHACIN 50 MG ORAL CAPSULE 1 po TID PRN Pain INDOMETHACIN 77915379105 Active Tu Landeros MD Active PROMETHAZINE-CODEINE 6.25-10 MG/5ML ORAL SYRUP 5ml po q6hr PRN Cough PROMETHAZINE-CODEINE 31563627753 No Longer Active Tu Landeros MD Active AZITHROMYCIN 250 MG ORAL TABLET 2 po qd x 1, then 1 po qd x 4 AZITHROMYCIN 72413916611 No Longer Active Tu Landeros MD Active GUAIFENESIN ER 600 MG ORAL TABLET EXTENDED RELEASE 12 HOUR 1 twice a day as needed for congestion GUAIFENESIN 61235751770 No Longer Active Tu Landeros MD Active PREDNISONE 20 MG ORAL TABLET 2 po qd x 5 days PREDNISONE 93561777232 No Longer Active Tu Landeros MD Active FLUTICASONE PROPIONATE 50 MCG/ACT NASAL SUSPENSION 2 sprays/nostril qd PRN Congestion/Allergies FLUTICASONE PROPIONATE 40596768461 Active Tu Landeros MD Active NASONEX 50 MCG/ACT NASAL SUSPENSION 2 actuations in each nostril q day 07/15 MOMETASONE FUROATE 93229118446 No Longer Active Tu Landeros MD Active MAGNESIUM OXIDE 400 MG ORAL TABLET 1 po BID MAGNESIUM OXIDE 46913759711 Active Tu Landeros MD Active SIMVASTATIN 20 MG ORAL TABLET 0.5 po qHS SIMVASTATIN 26480138273 Active Tu Landeros MD Active DICLOFENAC SODIUM 75 MG ORAL TABLET DELAYED RELEASE 1 po BID PRN Pain DICLOFENAC SODIUM 59988194450 No Longer Active Tu Landeros MD Active GABAPENTIN 100 MG ORAL CAPSULE 1 po TID GABAPENTIN 30035042060 Active Tu Landeros MD Active DICLOFENAC SODIUM 50 MG ORAL TABLET DELAYED RELEASE 1 po BID PRN Pain DICLOFENAC SODIUM 10407566333 No Longer Active Tu Landeros MD Active CYCLOBENZAPRINE HCL 10 MG ORAL TABLET 1 po TID PRN Muscle Spasm CYCLOBENZAPRINE HCL 54767206857 No Longer Active Tu Landeros MD Active INVOKANA 100 MG ORAL TABLET 1 po qd CANAGLIFLOZIN 87378020633 Active José Luis Becerra MD Active GLIPIZIDE 5 MG ORAL TABLET 1 po qd GLIPIZIDE 48110194952 No Longer Active Tu Landeros MD Active VENLAFAXINE HCL 75 MG ORAL TABLET 1 po BID VENLAFAXINE HCL 22255470419 Active Tu Landeros MD Active GLIMEPIRIDE 1 MG ORAL TABLET 1 po qd GLIMEPIRIDE 02341835839 No Longer Active Tu Landeros MD Active TRUE METRIX BLOOD GLUCOSE TEST IN VITRO STRIP Test blood sugar BID Dx: E11.9 GLUCOSE BLOOD 17537358869 Active Tu Landeros MD Active TRUE METRIX AIR GLUCOSE METER w/Device KIT Test blood glucose BID Dx: E11.9 BLOOD GLUCOSE MONITORING SUPPL 23071128707 Active Tu Landeros MD Active TRUETEST TEST IN VITRO STRIP test blood sugar twice daily. DX 250.0 GLUCOSE BLOOD 26765523209 No Longer Active Mirna Stanley LPN Active TRUEDRAW LANCING DEVICE test blood sugar twice daily dx: 250.00 LANCET DEVICES 93965996795 No Longer Active Mirna Stanley LPN Active ENALAPRIL MALEATE 20 MG ORAL TABLET 2 po qd ENALAPRIL MALEATE 98619797113 Active Tu Landeros MD Active SUPER B COMPLEX/VITAMIN C ORAL TABLET 1 qd B COMPLEX- C 88180203987 No Longer Active Tu Landeros MD Active ASPIRIN EC 81 MG ORAL TABLET DELAYED RELEASE 1 po qd ASPIRIN 88195948130 Active Tu Landeros MD Active GLUCOSAMINE 500 MG TABS 2 po qd GLUCOSAMINE Active Tu Landeros MD Active FISH OIL 1000 MG ORAL CAPSULE 1 po qd OMEGA-3 FATTY ACIDS 79253902303 Active Tu Landeros MD Active METFORMIN HCL 1000 MG ORAL TABLET 1 po BID METFORMIN HCL 36319209145 Active Tu Landeros MD Active KLOR-CON 10 10 MEQ ORAL TABLET EXTENDED RELEASE 2 po qd POTASSIUM CHLORIDE 66229498955 Active Tu Landeros MD Active FUROSEMIDE 40 MG ORAL TABLET 1 po qd FUROSEMIDE 92907783741 Active Tu Landeros MD Active REQUIP 2 MG ORAL TABLET 1 po qHS PRN Restless legs ROPINIROLE HCL 95605850712 Active Tu Landeros MD Active REQUIP 2 MG ORAL TABLET Take one tablet at bedtime prn ROPINIROLE HCL 96449614499 No Longer Active Tu Landeros MD Active VENTOLIN HFA 108 (90 Base) MCG/ACT INHALATION AEROSOL SOLUTION 1-2 puffs every 4 hours if needed for cough/congestion ALBUTEROL SULFATE 23842780924 No Longer Active Ambika Aden APRN Active ZITHROMAX 250 MG ORAL TABLET 2 po today, then 1 po q days 2-5 AZITHROMYCIN 45145397099 No Longer Active Miranda Farah APRN Active FLONASE 50 MCG/ACT NASAL SUSPENSION 1 spray each nostril twice daily until bottle empty FLUTICASONE PROPIONATE 47918026743 No Longer Active Tu Landeros MD Active COLACE 100 MG ORAL CAPSULE 1 po BID PRN Constipation DOCUSATE SODIUM 38962378968 Active Tu Landeros MD Active TRUERESULT BLOOD GLUCOSE w/Device KIT test blood sugar twice daily dx 250.00 BLOOD GLUCOSE MONITORING SUPPL 92495711719 No Longer Active Tu Landeros MD Active TRUEDRAW LANCING DEVICE Test twice a day dx 250.0 LANCET DEVICES 62249121347 No Longer Active Tu Landeros MD Active PREDNISONE 20 MG ORAL TABLET 2 tablets once daily for 2 days, then 1 tablet once daily for 2 days PREDNISONE 96225891852 No Longer Active Tu Landeros MD Active DICLOFENAC SODIUM 50 MG ORAL TABLET DELAYED RELEASE 1 tablet by mouth three times a day as needed DICLOFENAC SODIUM 28305452798 No Longer Active Fab Morales DO Active EMBRACE BLOOD GLUCOSE TEST IN VITRO STRIP test blood sugar twice daily DX 250.0 GLUCOSE BLOOD 18796231909 No Longer Active Tu Landeros MD Active TRUETEST TEST IN VITRO STRIP test blood sugar three times daily dx: 250.00 GLUCOSE BLOOD 33789275935 No Longer Active Suze VOGEL Active TRUERESULT BLOOD GLUCOSE w/Device KIT use to test blood sugar tid dx: 250.00 BLOOD GLUCOSE MONITORING SUPPL 99713020717 No Longer Active Suzebianca VOGEL Active ALIGN 4 MG ORAL CAPSULE 1 tid PROBIOTIC PRODUCT 74820645854 No Longer Active Shaun Sy MD Active CIPRO 500 MG ORAL TABLET 1 bid x 14 days start 09-28-13 CIPROFLOXACIN HCL 43980652134 No Longer Active Shaun Sy MD Active TRAMADOL HCL 50 MG ORAL TABLET 1-2 tablets every 6 hours as needed for pain TRAMADOL HCL 69678598433 Active Tu Landeros MD Active HYDROCODONE-ACETAMINOPHEN 5-325 MG ORAL TABLET 1 tab by mouth every 6 hours as needed for pain HYDROCODONE-ACETAMINOPHEN 69934649041 No Longer Active Tu Landeros MD Active OMEPRAZOLE 20 MG ORAL CAPSULE DELAYED RELEASE 1 po q a.m. OMEPRAZOLE 26069830146 Active Tu Landeros MD Active GABAPENTIN 100 MG ORAL CAPSULE 1 po bid GABAPENTIN 33410587260 No Longer Active Tu Landeros MD Active B-12 100 MCG ORAL TABLET Take one by mouth daily CYANOCOBALAMIN 49589977909 No Longer Active Tu Landeros MD Active BACTRIM DS 800-160 MG ORAL TABLET 1 bid x 14 day start 09-28-13 SULFAMETHOXAZOLE-TRIMETHOPRIM 36702988998 No Longer Active Tu Landeros MD Active CARVEDILOL 12.5 MG ORAL TABLET 1 po BID CARVEDILOL 43207162781 Active Tu Landeros MD Active FENOFIBRATE 145 MG ORAL TABLET 1 po qd FENOFIBRATE 45375456835 No Longer Active JASPREET Perez Active OMEPRAZOLE 20 MG ORAL TABLET DELAYED RELEASE 1 PO 30 MIN BEFORE 1ST MEAL 2010 OMEPRAZOLE 92531417334 No Longer Active JASPREET Perez Active SIMVASTATIN 40 MG ORAL TABLET Take one by mouth daily SIMVASTATIN 62356642803 No Longer Active JASPREET Perez Active VENLAFAXINE HCL 75 MG ORAL TABLET 1 po BID VENLAFAXINE HCL 55574165923 No Longer Active JASPREET Perez Active CIPRO 500 MG ORAL TABLET 1 tablet by mouth twice daily CIPROFLOXACIN HCL 77606869150 No Longer Active Tu Landeros MD Active VENLAFAXINE HCL 37.5 MG ORAL TABLET 1 po BID VENLAFAXINE HCL 32946005394 No Longer Active Suze NUNOA Active LAMISIL 250 MG ORAL TABLET 1 po qd TERBINAFINE HCL 92373454214 No Longer Active Tu Landeros MD Active LORTAB 5-500 MG ORAL TABLET 1/2 to 1 tablet by mouth every 4 hours as needed for pain HYDROCODONE-ACETAMINOPHEN 94855369882 No Longer Active Tu Landeros MD Active HYDROCODONE-ACETAMINOPHEN 5-500 MG ORAL TABLET take one po Q 4-6 hours prn HYDROCODONE-ACETAMINOPHEN 81795210563 No Longer Active Tu Landeros MD Active BACTRIM DS 800-160 MG ORAL TABLET 1 po BID x 7 days SULFAMETHOXAZOLE-TRIMETHOPRIM 64307464282 No Longer Active Tu Landeros MD Active VENLAFAXINE HCL 75 MG ORAL TABLET 1 po BID VENLAFAXINE HCL 78524841468 No Longer Active Elvira Cervantes MD PhD Active TRAMADOL HCL 50 MG ORAL TABLET 1 tablets every 6 hours as needed for pain TRAMADOL HCL 88215959642 No Longer Active Tu Landeros MD Active ACCU-CHEDawson FASTCLIX LANCETS Use to check bloodsugar three times daily as needed LANCETS 84176027796 No Longer Active Tu Landeros MD Active ACCU-CHEDawson KEYONA PLUS IN VITRO STRIP Use for testing bloodsugars three times daily as needed GLUCOSE BLOOD 25220996227 No Longer Active Tu Landeros MD Active ACCU-CHEK KEYONA PLUS w/Device KIT Use for testing bloodsugars three times daily as needed BLOOD GLUCOSE MONITORING SUPPL 47613320259 No Longer Active Tu Landeros MD Active SPIRONOLACTONE 25 MG ORAL TABLET 0.5 tablet by mouth daily 09/09 SPIRONOLACTONE 19270965095 No Longer Active Tu Landeros MD Active ALPRAZOLAM 0.5 MG ORAL TABLET 1 tab every 6hrs as needed ALPRAZOLAM 74838633393 No Longer Active Tu Landeros MD Active AUGMENTIN 875-125 MG ORAL TABLET 1 tab by mouth twice daily with food AMOXICILLIN-POT CLAVULANATE 65901395332 No Longer Active Tu Landeros MD Active PREDNISONE 20 MG ORAL TABLET 2 tabs daily for 3 days, 1 tab daily for 3 days, 1/2 tab daily for 2 days PREDNISONE 33866577773 No Longer Active Tu Landeros MD Active XANAX 0.5 MG ORAL TABLET 1 tablet every 6 hrs prn ALPRAZOLAM 07952960127 No Longer Active Tu Landeros MD Active PREDNISONE 20 MG ORAL TABLET 2 tabs daily for 3 days, 1 tab daily for 3 days, 1/2 tab daily for 2 days PREDNISONE 84553305735 No Longer Active Tu Landeros MD Active TRIAMCINOLONE ACETONIDE 0.1 % EXTERNAL OINTMENT Apply to affected areas TID for up to 2 weeks TRIAMCINOLONE ACETONIDE 02048736981 No Longer Active Tu Landeros MD Active LORTAB 5-500 MG ORAL TABLET 1/2 to 1 tablet by mouth every 4 hours as needed for pain HYDROCODONE-ACETAMINOPHEN 68199559979 No Longer Active Tu Landeros MD Active MULTIVITAMINS TABS Take one by mouth daily MULTIPLE VITAMIN 37742325547 No Longer Active Tu Landeros MD Active MELATONIN 5 MG ORAL TABLET Take one by mouth daily MELATONIN 81308245891 No Longer Active Tu Landeros MD Active SOMA 350 MG ORAL TABLET 1 po q 6 hours prn spasm CARISOPRODOL 95500384846 No Longer Active Tu Landeros MD Active MECLIZINE HCL 25 MG ORAL TABLET CHEWABLE 1 four times a day as needed for dizziness MECLIZINE HCL 57154254861 No Longer Active Fab Morales DO Active ANGEL BREEZE 2 TEST IN VITRO DISK test tid prn GLUCOSE BLOOD 10174063421 No Longer Active Negra Scott RN Active REGLAN 10 MG ORAL TABLET 1 po TID PRN Nausea METOCLOPRAMIDE HCL 89434102223 No Longer Active Tu Landeros MD Active METFORMIN HCL 500 MG ORAL TABLET 1 PO BID METFORMIN HCL 83527136484 No Longer Active Tu Landeros MD Active AMBIEN 10 MG ORAL TABLET 1 tab by mouth at bedtime as needed for sleep 06/10 ZOLPIDEM TARTRATE 04098809342 No Longer Active Tu Landeros MD Active FLUOXETINE HCL 40 MG ORAL CAPSULE 1 po q day FLUOXETINE HCL 98743135923 No Longer Active Mayra [place] Active TRILIPIX 135 MG ORAL CAPSULE DELAYED RELEASE 1 po qd CHOLINE FENOFIBRATE 66583472110 No Longer Active uT Landeros MD Active AMBIEN 10 MG ORAL TABLET 1 tab by mouth at bedtime as needed for sleep 06/10 AMBIEN 10 MG ORAL TABLET 264635 ZOLPIDEM TARTRATE Inactive METFORMIN HCL 500 MG ORAL TABLET 1 PO BID METFORMIN HCL 500 MG ORAL TABLET 857101 METFORMIN HCL Inactive REGLAN 10 MG ORAL TABLET 1 po TID PRN Nausea REGLAN 10 MG ORAL TABLET 066971 METOCLOPRAMIDE HCL Inactive MECLIZINE HCL 25 MG ORAL TABLET CHEWABLE 1 four times a day as needed for dizziness MECLIZINE HCL 25 MG ORAL TABLET CHEWABLE 082279 MECLIZINE HCL Inactive SOMA 350 MG ORAL TABLET 1 po q 6 hours prn spasm SOMA 350 MG ORAL TABLET 865548 CARISOPRODOL Inactive MELATONIN 5 MG ORAL TABLET Take one by mouth daily MELATONIN 5 MG ORAL TABLET 578020 MELATONIN Inactive MULTIVITAMINS TABS Take one by mouth daily MULTIVITAMINS TABS MULTIPLE VITAMIN Inactive LORTAB 5-500 MG ORAL TABLET 1/2 to 1 tablet by mouth every 4 hours as needed for pain LORTAB 5-500 MG ORAL TABLET HYDROCODONE- ACETAMINOPHEN Inactive XANAX 0.5 MG ORAL TABLET 1 tablet every 6 hrs prn XANAX 0.5 MG ORAL TABLET 746330 ALPRAZOLAM Inactive AUGMENTIN 875-125 MG ORAL TABLET 1 tab by mouth twice daily with food AUGMENTIN 875-125 MG ORAL TABLET 755729 AMOXICILLIN-POT CLAVULANATE Inactive ALPRAZOLAM 0.5 MG ORAL TABLET 1 tab every 6hrs as needed ALPRAZOLAM 0.5 MG ORAL TABLET 993592 ALPRAZOLAM Inactive SPIRONOLACTONE 25 MG ORAL TABLET 0.5 tablet by mouth daily 09/09 SPIRONOLACTONE 25 MG ORAL TABLET 031070 SPIRONOLACTONE Inactive ACCU-CHEK KEYONA PLUS w/Device KIT [...] times daily as needed ACCU-CHEK FASTCLIX LANCETS 69454096207 LANCETS Inactive TRAMADOL HCL 50 MG ORAL TABLET 1 tablets every 6 hours as needed for pain TRAMADOL HCL 50 MG ORAL TABLET 608153 TRAMADOL HCL Inactive VENLAFAXINE HCL 75 MG ORAL TABLET 1 po BID VENLAFAXINE HCL 75 MG ORAL TABLET 777117 VENLAFAXINE HCL Inactive HYDROCODONE-ACETAMINOPHEN 5-500 MG ORAL TABLET take one po Q 4-6 hours prn HYDROCODONE-ACETAMINOPHEN 5-500 MG ORAL TABLET HYDROCODONE-ACETAMINOPHEN Inactive LORTAB 5-500 MG ORAL TABLET 1/2 to 1 tablet by mouth every 4 hours as needed for pain LORTAB 5-500 MG ORAL TABLET HYDROCODONE- ACETAMINOPHEN Inactive LAMISIL 250 MG ORAL TABLET 1 po qd LAMISIL 250 MG ORAL TABLET 837428 TERBINAFINE HCL Inactive VENLAFAXINE HCL 37.5 MG ORAL TABLET 1 po BID VENLAFAXINE HCL 37.5 MG ORAL TABLET 757105 VENLAFAXINE HCL Inactive CIPRO 500 MG ORAL TABLET 1 tablet by mouth twice daily CIPRO 500 MG ORAL TABLET 920739 CIPROFLOXACIN HCL Inactive VENLAFAXINE HCL 75 MG ORAL TABLET 1 po BID VENLAFAXINE HCL 75 MG ORAL TABLET 878499 VENLAFAXINE HCL Inactive SIMVASTATIN 40 MG ORAL TABLET Take one by mouth daily SIMVASTATIN 40 MG ORAL TABLET 351228 SIMVASTATIN Inactive OMEPRAZOLE 20 MG ORAL TABLET DELAYED RELEASE 1 PO 30 MIN BEFORE 1ST MEAL 2010 OMEPRAZOLE 20 MG ORAL TABLET DELAYED RELEASE 436064 OMEPRAZOLE Inactive FENOFIBRATE 145 MG ORAL TABLET 1 po qd FENOFIBRATE 145 MG ORAL TABLET 282517 FENOFIBRATE Inactive BACTRIM DS 800-160 MG ORAL TABLET 1 bid x 14 day start 09-28-13 BACTRIM DS 800-160 MG ORAL TABLET 021219 SULFAMETHOXAZOLE- TRIMETHOPRIM Inactive B-12 100 MCG ORAL TABLET Take one by mouth daily B-12 100 MCG ORAL TABLET CYANOCOBALAMIN Inactive GABAPENTIN 100 MG ORAL CAPSULE 1 po bid GABAPENTIN 100 MG ORAL CAPSULE 594561 GABAPENTIN Inactive HYDROCODONE-ACETAMINOPHEN 5-325 MG ORAL TABLET 1 tab by mouth every 6 hours as needed for pain HYDROCODONE-ACETAMINOPHEN 5-325 MG ORAL TABLET 480446 HYDROCODONE-ACETAMINOPHEN Inactive CIPRO 500 MG ORAL TABLET 1 bid x 14 days start 814 CIPRO 500 MG ORAL TABLET 727908 CIPROFLOXACIN HCL Inactive ALIGN 4 MG ORAL [...] SODIUM 50 MG ORAL TABLET DELAYED RELEASE 815145 DICLOFENAC SODIUM Inactive PREDNISONE 20 MG ORAL TABLET 2 tablets once daily for 2 days, then 1 tablet once daily for 2 days PREDNISONE 20 MG ORAL TABLET 290219 PREDNISONE Inactive TRUEDRAW LANCING DEVICE Test twice a day dx 250.0 TRUEDRAW LANCING DEVICE LANCET DEVICES Inactive TRUERESULT BLOOD GLUCOSE w/Device KIT test blood sugar twice daily dx 250.00 TRUERESULT BLOOD GLUCOSE w/Device KIT BLOOD GLUCOSE MONITORING SUPPL Inactive FLONASE 50 MCG/ACT NASAL SUSPENSION 1 spray each nostril twice daily until bottle empty FLONASE 50 MCG/ACT NASAL SUSPENSION 1736140 FLUTICASONE PROPIONATE Inactive VENTOLIN HFA 108 (90 Base) MCG/ACT INHALATION AEROSOL SOLUTION 1-2 puffs every 4 hours if needed for cough/congestion VENTOLIN HFA 108 (90 Base) MCG/ACT INHALATION AEROSOL SOLUTION ALBUTEROL SULFATE Inactive REQUIP 2 MG ORAL TABLET Take one tablet at bedtime prn REQUIP 2 MG ORAL TABLET 705701 ROPINIROLE HCL Inactive SUPER B COMPLEX/VITAMIN C ORAL TABLET 1 qd SUPER B COMPLEX/VITAMIN C ORAL TABLET 61564474444 B COMPLEX-C Inactive TRUEDRAW LANCING DEVICE test blood sugar twice daily dx: 250.00 TRUEDRAW LANCING DEVICE LANCET DEVICES Inactive TRUETEST TEST IN VITRO STRIP test blood sugar twice daily. DX 250.0 TRUETEST TEST IN VITRO STRIP GLUCOSE BLOOD Inactive CYCLOBENZAPRINE HCL 10 MG ORAL TABLET 1 po TID PRN Muscle Spasm CYCLOBENZAPRINE HCL 10 MG ORAL TABLET 579203 CYCLOBENZAPRINE HCL Inactive DICLOFENAC SODIUM 50 MG ORAL TABLET DELAYED RELEASE 1 po BID PRN Pain DICLOFENAC SODIUM 50 MG ORAL TABLET DELAYED RELEASE 723522 DICLOFENAC SODIUM Inactive DICLOFENAC SODIUM 75 MG ORAL TABLET DELAYED RELEASE 1 po BID PRN Pain DICLOFENAC SODIUM 75 MG ORAL TABLET DELAYED RELEASE 386288 DICLOFENAC SODIUM Inactive NASONEX 50 MCG/ACT NASAL SUSPENSION 2 actuations in each nostril q day 07/15 NASONEX 50 MCG/ACT NASAL SUSPENSION 8344044 MOMETASONE FUROATE Inactive GUAIFENESIN ER 600 MG ORAL TABLET EXTENDED RELEASE 12 HOUR 1 twice a day as needed for congestion GUAIFENESIN ER 600 MG ORAL TABLET EXTENDED RELEASE 12 HOUR GUAIFENESIN Inactive AZITHROMYCIN 250 MG ORAL TABLET 2 po qd x 1, then 1 po qd x 4 AZITHROMYCIN 250 MG ORAL TABLET 889955 AZITHROMYCIN Inactive PROMETHAZINE-CODEINE 6.25-10 MG/5ML ORAL SYRUP 5ml po q6hr PRN Cough PROMETHAZINE-CODEINE 6.25-10 MG/5ML ORAL SYRUP 450987 PROMETHAZINE-CODEINE Inactive TRILIPIX 135 MG ORAL CAPSULE DELAYED RELEASE 1 q hs TRILIPIX 135 MG ORAL CAPSULE DELAYED RELEASE 290170 CHOLINE FENOFIBRATE Inactive TRIAMCINOLONE ACETONIDE 0.1 % EXTERNAL OINTMENT Apply to affected areas TID for up to 2 weeks TRIAMCINOLONE ACETONIDE 0.1 % EXTERNAL OINTMENT 3503530 TRIAMCINOLONE ACETONIDE Inactive PREDNISONE 20 MG ORAL TABLET 2 tabs daily for 3 days, 1 tab daily for 3 days, 1/2 tab daily for 2 days PREDNISONE 20 MG ORAL TABLET 888605 PREDNISONE Inactive PREDNISONE 20 MG ORAL TABLET 2 tabs daily for 3 days, 1 tab daily for 3 days, 1/2 tab daily for 2 days PREDNISONE 20 MG ORAL TABLET 870315 PREDNISONE Inactive BACTRIM DS 800-160 MG ORAL TABLET 1 po BID x 7 days BACTRIM DS 800-160 MG ORAL TABLET 472506 SULFAMETHOXAZOLE-TRIMETHOPRIM Inactive ZITHROMAX 250 MG ORAL TABLET 2 po today, then 1 po q days 2-5 ZITHROMAX 250 MG ORAL TABLET 554161 AZITHROMYCIN Inactive PREDNISONE 20 MG ORAL TABLET 2 po qd x 5 days PREDNISONE 20 MG ORAL TABLET 962030 PREDNISONE Inactive Advance Directives Directive Description Start Date DISCUSSED WITH PATIENT -- NO DECISION MADE Immunizations Vaccine Administration Date Value Standard Description Seasonal influenza vaccine, injectable, containing preservative, for > 3 years old (Afluria, FluLaval, Fluzone, Fluvirin, Fluarix, Agriflu(>=18 yo)) Fluzone (>3 yrs.) [IFQ500] Influenza, seasonal, injectable influenza immunization (Flu Vax) has been administered 02/22/2012 influenza virus vaccine, unspecified formulation Seasonal influenza vaccine, injectable, containing preservative, for > 3 years old (Afluria, FluLaval, Fluzone, Fluvirin, Fluarix, Agriflu(>=18 yo)) Fluzone (>3 yrs.) [[id number]] Influenza, seasonal, injectable Vital Signs Date Name [...] ... - Chemistry sodium, serum 141 mmol/L 868-310 9696/01/16 carbon dioxide, venous blood 28.3 mmol/L 21.0-32.0 [...] 6.7 % 4.3-6.0 cholesterol, serum 106 mg/dL 751-568 3309/01/16 triglyceride, serum, fasting 173 mg/dL 30-200 HDL cholesterol, serum 29 mg/dL 32-60 LDL cholesterol, serum 42 mg/dL 0-130 albumin/creatinine ratio, urine <30 mg/g Normal mg/g mg/g{creat} 0-29 Lab Report: CBC, Comp. Metabolic Panel, HGBA1C, Lipid Panel, Magnesium, ... - Hematology mean corpuscular volume, RBC 90 fL 80-97 hematocrit, blood 42.5 % 37.0-47.0 hemoglobin, blood 13.4 g/dL 12.0-16.0 erythrocyte (RBC) count 4.70 10^6/MM^3 10*6/mm3 3.80-5.80 leukocyte count, blood 6.9 10^3/MM^3 10*3/mm3 4.6-10.2 mean corpuscular hemoglobin, RBC 28.4 pg 27.0-31.2 mean corpuscular hemoglobin concentration, RBC 31.5 G/DL % 31.8- 35.4 red blood cell distribution width 12.3 % 11.6-14.8 platelet count 312 10^3/MM^3 10*3/mm3 142-424 Lab Report: CBC, Comp. Metabolic Panel, HGBA1C, Lipid Panel, Magnesium, ... - Lab microalbumin, urine 10 mg/L 0-19 Lab Report: Comp. Metabolic Panel, HGBA1C, Magnesium - Chemistry hemoglobin A1C, blood, as % of total hemoglobin 6.4 % 4.3-6.0 sodium, serum 142 mmol/L 771-077 9763/07/16 carbon dioxide, venous blood 29.4 mmol/L 21.0-32.0 potassium, serum 4.7 mmol/L 3.5-5.2 chloride, serum 106 mmol/L 98-107 blood glucose 130 mg/dL 65-95 urea nitrogen, blood 19 mg/dL 7-18 creatinine, serum 0.95 mg/dL 0.60-1.30 alanine aminotransferase (SGPT), serum 36 U/L 12-78 aspartate aminotransferase (SGOT), serum 28 U/L 15-37 calcium, serum 9.1 mg/dL 8.5-10.1 bilirubin, serum, total 0.20 mg/dL 0.00-1.00 Lab Report: Lipid Panel - Chemistry cholesterol, serum 170 mg/dL 809-266 0763/07/16 triglyceride, serum, fasting 266 mg/dL 30-200 HDL cholesterol, serum 42 mg/dL 32-60 LDL cholesterol, serum 75 mg/dL 0-130 Encounters Code Encounter Date Provider Facility CPT-19777 Level 4 Est. Patient 14:46:36 CDT Tu Landeros MD [facility] CPT-45570 Level 3 Est. Patient 10:28:05 CDT Tu Landeros MD [facility] CPT-39448 Level 3 Est. Patient 09:11:32 CDT Tu Landeros MD [facility] CPT-24044 Level 3 Est. 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 Patient 13:42:02 SUCTION DREDGE DUMPING SUPERVISOR Tu Landeros MD [facility] CPT-34571 Level 3 Est. Patient 14:20:36 CDT Tu Landeros MD [facility] CPT-37093 Level 4 Est. Patient 14:28:34 CDT Tu Landeros MD [facility] CPT-52421 Level 3 Est. Patient 13:33:09 CDT Tu Landeros MD [facility] CPT-26986 Level 4 Est. Patient 14:29:21 CDT Tu Landeros MD [facility] CPT-98473 Level 4 Est. Patient 09:08:17 SUCTION DREDGE DUMPING SUPERVISOR Tu Landeros MD [facility] CPT-19325 Level 4 Est. Patient 14:40:19 CDT Tu Landeros MD [facility] CPT-21814 Level 4 Est. Patient 14:06:04 SUCTION DREDGE DUMPING SUPERVISOR Tu Landeros MD [facility] CPT-58132 Level 3 Est. Patient 14:05:18 SUCTION DREDGE DUMPING SUPERVISOR Tu Landeros MD [facility] CPT-36521 Level 3 Est. Patient 10:06:54 SUCTION DREDGE DUMPING SUPERVISOR Miranda Farah HATCHERY ATTENDANT [facility] CPT-22011 Level 4 Est. Patient 13:50:18 SUCTION DREDGE DUMPING SUPERVISOR Tu Landeros MD [facility] CPT-74059 Level 3 Est. Patient 10:30:04 CDT Tu Landeros MD [facility] CPT-26873 Level 4 Est. Patient 11:03:38 CDT Tu Landeros MD [facility] CPT-91750 Level 3 Est. Patient 10:20:44 CDT Fab Morales DO [facility] CPT-31024 Level 4 Est. Patient 14:38:57 CDT Tu Landeros MD [facility] CPT-07686 Level 4 Est. Patient 14:27:39 SUCTION DREDGE DUMPING SUPERVISOR Tu Landeros MD [facility] CPT-05523 Level 4 Est. Patient 09:45:25 CDT Tu Landeros MD [facility] CPT-94746 Level 4 Est. Patient 09:05:20 SUCTION DREDGE DUMPING SUPERVISOR Tu Landeros MD [facility] CPT-41855 Level 4 Est. Patient 14:09:06 CDT Tu Landeros MD [facility] CPT-48433 Level 3 Est. Patient 13:36:54 CDT Tu Landeros MD [facility] CPT-83043 Level 3 Est. Patient 08:59:14 CDT Tu Landeros MD [facility] CPT-88216 Level 3 Est. Patient 13:48:35 CDT Fab Morales DO [facility] CPT-48810 Level 4 Est. Patient 10:05:48 CDT Tu Landeros MD [facility] CPT-33859 Level 3 Est. Patient 13:38:42 CDT Marek BANKS [facility] CPT-90646 Level 5 Est. Patient 08:08:39 CDT Jerrica FRANCIS [facility] CPT-95660 Level 4 Est. Patient 14:23:38 CDT Tu Landeros MD [facility] CPT-06798 Level 3 Est. Patient 11:44:04 CDT Tu Landeros MD [facility] CPT-67776 Level 3 Est. Patient 11:03:20 [employer] Tu Landeros MD [facility] CPT-86296 Level 3 Est. Patient 11:03:14 [employer] SUPER[employer]OR Tu Landeros MD [facility] CPT-16539 Level 3 Est. Patient 12:42:49 CDT Tu Landeros MD [facility] CPT-18015 Level 3 Est. Patient 11:52:06 CDT Tu Landeros MD [facility] CPT-84331 Level 3 Est. Patient 13:58:11 CDT Tu Landeros MD [facility] CPT-85316 Level 3 Est. Patient 17:50:07 CDT Fab Morales DO [facility] CPT-39093 Level 3 Est. Patient 12:06:29 CDT Elvira Cervantes MD PhD [facility] CPT-21026 Level 3 Est. Patient 15:50:32 CDT Tu Landeros MD [facility] CPT-04154 Level 4 Est. Patient 16:08:29 CDT Tu Landeros MD [facility] CPT-93951 Level 3 Est. Patient 16:04:19 CDT Tu Landeros MD [facility] CPT-96620 Level 3 Est. Patient 11:22:30 [employer] SUPER[employer]OR Tu Landeros MD [facility] CPT-86859 Level 4 Est. Patient 16:24:02 [employer] SUPER[employer]OR Tu Landeros MD [facility] CPT-47197 Level 3 Est. Patient 17:21:23 [employer]PER[employer]OR Tu Landeros MD [facility] Procedures Code Procedure Name Date Entry Date Standard Description CPT-G0439 [facility] Annual Wellness Exam 14:46:36 CDT CPT-12110 Shoulder, right, comp min 2V - XRAY USE ONLY 13:50:22 CDT CPT-G0009 Administration of Pneumococcal Vaccine 15:08:26 CDT CPT-92093 Prevnar 13 Intramuscular Suspension 15:08:26 CDT 10/08 CPT-G0439 Subsequent Annual Wellness Exam 14:29:22 CDT CPT-21027 Venipuncture Draw Fee 13:15:35 CDT CPT-06580 Magnesium - LAB USE ONLY 11:14:20 [employer] CPT-40098 Lipid - LAB USE ONLY 11:14:20 [employer] SUPERVISOR CPT-00500 HGBA1C - LAB USE ONLY 11:14:20 [employer] SUPERVISOR CPT-00561 CMP - LAB USE ONLY 11:14:19 [employer] SUPERVISOR CPT-20487 CBC - LAB USE ONLY 11:14:19 [employer] SUPERVISOR CPT-86514 Venipuncture Draw Fee 11:14:18 [employer]PER[employer]OR CPT-76312 First Vx - Ix admin for Medicare patients 16:46:52 CDT CPT-69116 Fluzone Preservative Free Intramuscular Suspension 16:46 :51 CDT CPT-94652 CBC - LAB USE ONLY 17:14:46 CDT CPT-47894 HGBA1C - LAB USE ONLY 17:14:46 CDT CPT-16915 Venipuncture Draw Fee 17:14:46 CDT CPT-G0438 Initial Annual Wellness Exam 14:13:04 CDT CPT-69396 Breathing Tx 10:06:54 [employer] CPT-63201 Postop F/U Visit 10:02:45 CDT CPT-LR Lesion Removal 09:02:56 CDT CPT-JTINJ Asp/Joint Injection 15:51:27 [employer]PER[employer]OR CPT-OV Office Visit 15:52:02 [employer]PERVISOR CPT-OV Office Visit 15:45:11 CDT CPT-000 Give Zostavax 14:09:06 CDT CPT-48286 Administration single or combination vaccine inc oral 15 :19:04 CDT CPT-44230 Zoster Vaccine (Zostavax) 15:19:04 CDT CPT-30976 Administration single or combination vaccine inc oral 20 :51:03 CDT CPT-77726 Influenza split virus > age 3 20:51:03 CDT CPT-86751 No Charge Offi Visit 14:52:03 CDT CPT-OV Office Visit 14:57:43 CDT CPT-OV Office Visit 15:22:32 CDT CPT-70289 Administration single or combination vaccine inc oral 11 :33:15 CDT CPT-30209 Influenza split virus > age 3 11:33:15 CDT
--- OUTSIDE RECORDS SUMMARY | 2018-04-25 11:42 | XMS REPORT | Clinical Summary ---
Author Author Admin, SACHI Organization [employer] Address Unknown Phone Unavailable Allergies, Adverse Reactions, [...] Other and unspecified hyperlipidemia Hyperlipidemia 272.4 Refinement uT Landeros MD Other and unspecified hyperlipidemia Mixed [...] magnesium metabolism URI 465.9 Inactive Lesli Kellogg [employer] Acute upper respiratory infections of unspecified site [...] 1 GM ORAL CAPSULE 1 po qd [id number] ETHYL ESTERS 98058554957 Active Tu Landeros MD Active TRILIPIX 135 MG ORAL CAPSULE DELAYED RELEASE 1 q hs CHOLINE FENOFIBRATE 00064985069 No Longer Active Cynthia NUNOA Active TRIAMCINOLONE ACETONIDE 0.1 % EXTERNAL CREAM Apply to affected area TID for up to 2 weeks TRIAMCINOLONE ACETONIDE 60013246048 Active Tu Landeros MD Active INDOMETHACIN 50 MG ORAL CAPSULE 1 po TID PRN Pain INDOMETHACIN 77420456952 Active Tu Landeros MD Active PROMETHAZINE-CODEINE 6.25-10 MG/5ML ORAL SYRUP 5ml po q6hr PRN Cough PROMETHAZINE-CODEINE 46368576364 No Longer Active Tu Landeros MD Active AZITHROMYCIN 250 MG ORAL TABLET 2 po qd x 1, then 1 po qd x 4 AZITHROMYCIN 25269265176 No Longer Active Tu Landeros MD Active GUAIFENESIN ER 600 MG ORAL TABLET EXTENDED RELEASE 12 HOUR 1 twice a day as needed for congestion GUAIFENESIN 78042236000 No Longer Active Tu Landeros MD Active PREDNISONE 20 MG ORAL TABLET 2 po qd x 5 days PREDNISONE 51937211890 No Longer Active Tu Landeros MD Active FLUTICASONE PROPIONATE 50 MCG/ACT NASAL SUSPENSION 2 sprays/nostril qd PRN Congestion/Allergies FLUTICASONE PROPIONATE 82991182734 Active Tu Landeros MD Active NASONEX 50 MCG/ACT NASAL SUSPENSION 2 actuations in each nostril q day 07/15 MOMETASONE FUROATE 54103350699 No Longer Active Tu Landeros MD Active MAGNESIUM OXIDE 400 MG ORAL TABLET 1 po BID MAGNESIUM OXIDE 09898229496 Active Tu Landeros MD Active SIMVASTATIN 20 MG ORAL TABLET 0.5 po qHS SIMVASTATIN 33615863856 Active Tu Landeros MD Active DICLOFENAC SODIUM 75 MG ORAL TABLET DELAYED RELEASE 1 po BID PRN Pain DICLOFENAC SODIUM 44916690178 No Longer Active Tu Landeros MD Active GABAPENTIN 100 MG ORAL CAPSULE 1 po TID GABAPENTIN 03288651440 Active Tu Landeros MD Active DICLOFENAC SODIUM 50 MG ORAL TABLET DELAYED RELEASE 1 po BID PRN Pain DICLOFENAC SODIUM 62253440794 No Longer Active Tu Landeros MD Active CYCLOBENZAPRINE HCL 10 MG ORAL TABLET 1 po TID PRN Muscle Spasm CYCLOBENZAPRINE HCL 65891252393 No Longer Active Tu Landeros MD Active INVOKANA 100 MG ORAL TABLET 1 po qd CANAGLIFLOZIN 27414385009 Active José Luis Becerra MD Active GLIPIZIDE 5 MG ORAL TABLET 1 po qd GLIPIZIDE 82793189391 No Longer Active Tu Landeros MD Active VENLAFAXINE HCL 75 MG ORAL TABLET 1 po BID VENLAFAXINE HCL 10626367552 Active Tu Landeros MD Active GLIMEPIRIDE 1 MG ORAL TABLET 1 po qd GLIMEPIRIDE 72760662438 No Longer Active Tu Landeros MD Active TRUE METRIX BLOOD GLUCOSE TEST IN VITRO STRIP Test blood sugar BID Dx: E11.9 GLUCOSE BLOOD 88361412642 Active Tu Landeros MD Active TRUE METRIX AIR GLUCOSE METER w/Device KIT Test blood glucose BID Dx: E11.9 BLOOD GLUCOSE MONITORING SUPPL 38621224138 Active Tu Landeros MD Active TRUETEST TEST IN VITRO STRIP test blood sugar twice daily. DX 250.0 GLUCOSE BLOOD 89357171814 No Longer Active Mirna Stanley LPN Active TRUEDRAW LANCING DEVICE test blood sugar twice daily dx: 250.00 LANCET DEVICES 77569937323 No Longer Active Mirna Stanley LPN Active ENALAPRIL MALEATE 20 MG ORAL TABLET 2 po qd ENALAPRIL MALEATE 76388306213 Active Tu Landeros MD Active SUPER B COMPLEX/VITAMIN C ORAL TABLET 1 qd B COMPLEX- C 96882835326 No Longer Active Tu Landeros MD Active ASPIRIN EC 81 MG ORAL TABLET DELAYED RELEASE 1 po qd ASPIRIN 02857556429 Active Tu Landeros MD Active GLUCOSAMINE 500 MG TABS 2 po qd GLUCOSAMINE Active Tu Landeros MD Active FISH OIL 1000 MG ORAL CAPSULE 1 po qd OMEGA-3 FATTY ACIDS 09699502432 Active Tu Landeros MD Active METFORMIN HCL 1000 MG ORAL TABLET 1 po BID METFORMIN HCL 87591621710 Active Tu Landeros MD Active KLOR-CON 10 10 MEQ ORAL TABLET EXTENDED RELEASE 2 po qd POTASSIUM CHLORIDE 40035073533 Active Tu Landeros MD Active FUROSEMIDE 40 MG ORAL TABLET 1 po qd FUROSEMIDE 52386498740 Active Tu Landeros MD Active REQUIP 2 MG ORAL TABLET 1 po qHS PRN Restless legs ROPINIROLE HCL 47714582885 Active Tu Landeros MD Active REQUIP 2 MG ORAL TABLET Take one tablet at bedtime prn ROPINIROLE HCL 86844614359 No Longer Active Tu Landeros MD Active VENTOLIN HFA 108 (90 Base) MCG/ACT INHALATION AEROSOL SOLUTION 1-2 puffs every 4 hours if needed for cough/congestion ALBUTEROL SULFATE 82947945452 No Longer Active Ambika Aden APRN Active ZITHROMAX 250 MG ORAL TABLET 2 po today, then 1 po q days 2-5 AZITHROMYCIN 85620535295 No Longer Active Miranda Farah APRN Active FLONASE 50 MCG/ACT NASAL SUSPENSION 1 spray each nostril twice daily until bottle empty FLUTICASONE PROPIONATE 42553270160 No Longer Active Tu Landeros MD Active COLACE 100 MG ORAL CAPSULE 1 po BID PRN Constipation DOCUSATE SODIUM 99294369155 Active Tu Landeros MD Active TRUERESULT BLOOD GLUCOSE w/Device KIT test blood sugar twice daily dx 250.00 BLOOD GLUCOSE MONITORING SUPPL 89744421444 No Longer Active Tu Landeros MD Active TRUEDRAW LANCING DEVICE Test twice a day dx 250.0 LANCET DEVICES 39927449315 No Longer Active Tu Landeros MD Active PREDNISONE 20 MG ORAL TABLET 2 tablets once daily for 2 days, then 1 tablet once daily for 2 days PREDNISONE 53156117955 No Longer Active Tu Landeros MD Active DICLOFENAC SODIUM 50 MG ORAL TABLET DELAYED RELEASE 1 tablet by mouth three times a day as needed DICLOFENAC SODIUM 30491742000 No Longer Active Fab Morales DO Active EMBRACE BLOOD GLUCOSE TEST IN VITRO STRIP test blood sugar twice daily DX 250.0 GLUCOSE BLOOD 64926223568 No Longer Active Tu Landeros MD Active TRUETEST TEST IN VITRO STRIP test blood sugar three times daily dx: 250.00 GLUCOSE BLOOD 56126217384 No Longer Active Suze VOGEL Active TRUERESULT BLOOD GLUCOSE w/Device KIT use to test blood sugar tid dx: 250.00 BLOOD GLUCOSE MONITORING SUPPL 77983840136 No Longer Active Suzebianca VOGEL Active ALIGN 4 MG ORAL CAPSULE 1 tid PROBIOTIC PRODUCT 88236546117 No Longer Active Shaun Sy MD Active CIPRO 500 MG ORAL TABLET 1 bid x 14 days start 09-28-13 CIPROFLOXACIN HCL 97726439036 No Longer Active Shaun Sy MD Active TRAMADOL HCL 50 MG ORAL TABLET 1-2 tablets every 6 hours as needed for pain TRAMADOL HCL 83984163801 Active Tu Landeros MD Active HYDROCODONE-ACETAMINOPHEN 5-325 MG ORAL TABLET 1 tab by mouth every 6 hours as needed for pain HYDROCODONE-ACETAMINOPHEN 26129390211 No Longer Active Tu Landeros MD Active OMEPRAZOLE 20 MG ORAL CAPSULE DELAYED RELEASE 1 po q a.m. OMEPRAZOLE 17515855958 Active Tu Landeros MD Active GABAPENTIN 100 MG ORAL CAPSULE 1 po bid GABAPENTIN 65151171424 No Longer Active Tu Landeros MD Active B-12 100 MCG ORAL TABLET Take one by mouth daily CYANOCOBALAMIN 28197635572 No Longer Active Tu Landeros MD Active BACTRIM DS 800-160 MG ORAL TABLET 1 bid x 14 day start 09-28-13 SULFAMETHOXAZOLE-TRIMETHOPRIM 65961666924 No Longer Active Tu Landeros MD Active CARVEDILOL 12.5 MG ORAL TABLET 1 po BID CARVEDILOL 60149205053 Active Tu Landeros MD Active FENOFIBRATE 145 MG ORAL TABLET 1 po qd FENOFIBRATE 75833779107 No Longer Active JASPREET Perez Active OMEPRAZOLE 20 MG ORAL TABLET DELAYED RELEASE 1 PO 30 MIN BEFORE 1ST MEAL 2010 OMEPRAZOLE 56933568856 No Longer Active JASPREET Perez Active SIMVASTATIN 40 MG ORAL TABLET Take one by mouth daily SIMVASTATIN 28843898342 No Longer Active JASPREET Perez Active VENLAFAXINE HCL 75 MG ORAL TABLET 1 po BID VENLAFAXINE HCL 67603277901 No Longer Active JASPREET Perez Active CIPRO 500 MG ORAL TABLET 1 tablet by mouth twice daily CIPROFLOXACIN HCL 87638750806 No Longer Active Tu Landeros MD Active VENLAFAXINE HCL 37.5 MG ORAL TABLET 1 po BID VENLAFAXINE HCL 30466447405 No Longer Active Suze NUNOA Active LAMISIL 250 MG ORAL TABLET 1 po qd TERBINAFINE HCL 67112215035 No Longer Active Tu Landeros MD Active LORTAB 5-500 MG ORAL TABLET 1/2 to 1 tablet by mouth every 4 hours as needed for pain HYDROCODONE-ACETAMINOPHEN 94104105183 No Longer Active Tu Landeros MD Active HYDROCODONE-ACETAMINOPHEN 5-500 MG ORAL TABLET take one po Q 4-6 hours prn HYDROCODONE-ACETAMINOPHEN 41853788866 No Longer Active Tu Landeros MD Active BACTRIM DS 800-160 MG ORAL TABLET 1 po BID x 7 days SULFAMETHOXAZOLE-TRIMETHOPRIM 55816374798 No Longer Active Tu Landeros MD Active VENLAFAXINE HCL 75 MG ORAL TABLET 1 po BID VENLAFAXINE HCL 30056259615 No Longer Active Elvira Cervantes MD PhD Active TRAMADOL HCL 50 MG ORAL TABLET 1 tablets every 6 hours as needed for pain TRAMADOL HCL 14056534988 No Longer Active Tu Landeros MD Active ACCU-CHEDawson FASTCLIX LANCETS Use to check bloodsugar three times daily as needed LANCETS 38657392379 No Longer Active Tu Landeros MD Active ACCU-CHEDawson KEYONA PLUS IN VITRO STRIP Use for testing bloodsugars three times daily as needed GLUCOSE BLOOD 82871718276 No Longer Active Tu Landeros MD Active ACCU-CHEK KEYONA PLUS w/Device KIT Use for testing bloodsugars three times daily as needed BLOOD GLUCOSE MONITORING SUPPL 53731228705 No Longer Active Tu Landeros MD Active SPIRONOLACTONE 25 MG ORAL TABLET 0.5 tablet by mouth daily 09/09 SPIRONOLACTONE 47633382461 No Longer Active Tu Landeros MD Active ALPRAZOLAM 0.5 MG ORAL TABLET 1 tab every 6hrs as needed ALPRAZOLAM 28293293591 No Longer Active Tu Landeros MD Active AUGMENTIN 875-125 MG ORAL TABLET 1 tab by mouth twice daily with food AMOXICILLIN-POT CLAVULANATE 21669314933 No Longer Active Tu Landeros MD Active PREDNISONE 20 MG ORAL TABLET 2 tabs daily for 3 days, 1 tab daily for 3 days, 1/2 tab daily for 2 days PREDNISONE 55998708056 No Longer Active Tu Landeros MD Active XANAX 0.5 MG ORAL TABLET 1 tablet every 6 hrs prn ALPRAZOLAM 96259302228 No Longer Active Tu Landeros MD Active PREDNISONE 20 MG ORAL TABLET 2 tabs daily for 3 days, 1 tab daily for 3 days, 1/2 tab daily for 2 days PREDNISONE 11046522146 No Longer Active Tu Landeros MD Active TRIAMCINOLONE ACETONIDE 0.1 % EXTERNAL OINTMENT Apply to affected areas TID for up to 2 weeks TRIAMCINOLONE ACETONIDE 17184846922 No Longer Active Tu Landeros MD Active LORTAB 5-500 MG ORAL TABLET 1/2 to 1 tablet by mouth every 4 hours as needed for pain HYDROCODONE-ACETAMINOPHEN 63530058036 No Longer Active Tu Landeros MD Active MULTIVITAMINS TABS Take one by mouth daily MULTIPLE VITAMIN 44482691242 No Longer Active Tu Landeros MD Active MELATONIN 5 MG ORAL TABLET Take one by mouth daily MELATONIN 21041752005 No Longer Active Tu Landeros MD Active SOMA 350 MG ORAL TABLET 1 po q 6 hours prn spasm CARISOPRODOL 34049025674 No Longer Active Tu Landeros MD Active MECLIZINE HCL 25 MG ORAL TABLET CHEWABLE 1 four times a day as needed for dizziness MECLIZINE HCL 00814938904 No Longer Active Fab Morales DO Active ANGEL BREEZE 2 TEST IN VITRO DISK test tid prn GLUCOSE BLOOD 72466939856 No Longer Active Negra Scott RN Active REGLAN 10 MG ORAL TABLET 1 po TID PRN Nausea METOCLOPRAMIDE HCL 09267460636 No Longer Active Tu Landeros MD Active METFORMIN HCL 500 MG ORAL TABLET 1 PO BID METFORMIN HCL 66672608796 No Longer Active Tu Landeros MD Active AMBIEN 10 MG ORAL TABLET 1 tab by mouth at bedtime as needed for sleep 06/10 ZOLPIDEM TARTRATE 57867754519 No Longer Active Tu Landeros MD Active FLUOXETINE HCL 40 MG ORAL CAPSULE 1 po q day FLUOXETINE HCL 76611826620 No Longer Active Mayra Faison Active TRILIPIX 135 MG ORAL CAPSULE DELAYED RELEASE 1 po qd CHOLINE FENOFIBRATE 45331320834 No Longer Active Tu Landeros MD Active AMBIEN 10 MG ORAL TABLET 1 tab by mouth at bedtime as needed for sleep 06/10 AMBIEN 10 MG ORAL TABLET 889201 ZOLPIDEM TARTRATE Inactive METFORMIN HCL 500 MG ORAL TABLET 1 PO BID METFORMIN HCL 500 MG ORAL TABLET 068709 METFORMIN HCL Inactive REGLAN 10 MG ORAL TABLET 1 po TID PRN Nausea REGLAN 10 MG ORAL TABLET 778265 METOCLOPRAMIDE HCL Inactive MECLIZINE HCL 25 MG ORAL TABLET CHEWABLE 1 four times a day as needed for dizziness MECLIZINE HCL 25 MG ORAL TABLET CHEWABLE 274929 MECLIZINE HCL Inactive SOMA 350 MG ORAL TABLET 1 po q 6 hours prn spasm SOMA 350 MG ORAL TABLET 793593 CARISOPRODOL Inactive MELATONIN 5 MG ORAL TABLET Take one by mouth daily MELATONIN 5 MG ORAL TABLET 704353 MELATONIN Inactive MULTIVITAMINS TABS Take one by mouth daily MULTIVITAMINS TABS MULTIPLE VITAMIN Inactive LORTAB 5-500 MG ORAL TABLET 1/2 to 1 tablet by mouth every 4 hours as needed for pain LORTAB 5-500 MG ORAL TABLET HYDROCODONE- ACETAMINOPHEN Inactive XANAX 0.5 MG ORAL TABLET 1 tablet every 6 hrs prn XANAX 0.5 MG ORAL TABLET 409584 ALPRAZOLAM Inactive AUGMENTIN 875-125 MG ORAL TABLET 1 tab by mouth twice daily with food AUGMENTIN 875-125 MG ORAL TABLET 219823 AMOXICILLIN-POT CLAVULANATE Inactive ALPRAZOLAM 0.5 MG ORAL TABLET 1 tab every 6hrs as needed ALPRAZOLAM 0.5 MG ORAL TABLET 039475 ALPRAZOLAM Inactive SPIRONOLACTONE 25 MG ORAL TABLET 0.5 tablet by mouth daily 09/09 SPIRONOLACTONE 25 MG ORAL TABLET 733474 SPIRONOLACTONE Inactive ACCU-CHEK KEYONA PLUS w/Device KIT [...] times daily as needed ACCU-CHEK FASTCLIX LANCETS 57851560858 LANCETS Inactive TRAMADOL HCL 50 MG ORAL TABLET 1 tablets every 6 hours as needed for pain TRAMADOL HCL 50 MG ORAL TABLET 028761 TRAMADOL HCL Inactive VENLAFAXINE HCL 75 MG ORAL TABLET 1 po BID VENLAFAXINE HCL 75 MG ORAL TABLET 200180 VENLAFAXINE HCL Inactive HYDROCODONE-ACETAMINOPHEN 5-500 MG ORAL TABLET take one po Q 4-6 hours prn HYDROCODONE-ACETAMINOPHEN 5-500 MG ORAL TABLET HYDROCODONE-ACETAMINOPHEN Inactive LORTAB 5-500 MG ORAL TABLET 1/2 to 1 tablet by mouth every 4 hours as needed for pain LORTAB 5-500 MG ORAL TABLET HYDROCODONE- ACETAMINOPHEN Inactive LAMISIL 250 MG ORAL TABLET 1 po qd LAMISIL 250 MG ORAL TABLET 469658 TERBINAFINE HCL Inactive VENLAFAXINE HCL 37.5 MG ORAL TABLET 1 po BID VENLAFAXINE HCL 37.5 MG ORAL TABLET 174978 VENLAFAXINE HCL Inactive CIPRO 500 MG ORAL TABLET 1 tablet by mouth twice daily CIPRO 500 MG ORAL TABLET 621271 CIPROFLOXACIN HCL Inactive VENLAFAXINE HCL 75 MG ORAL TABLET 1 po BID VENLAFAXINE HCL 75 MG ORAL TABLET 947298 VENLAFAXINE HCL Inactive SIMVASTATIN 40 MG ORAL TABLET Take one by mouth daily SIMVASTATIN 40 MG ORAL TABLET 861620 SIMVASTATIN Inactive OMEPRAZOLE 20 MG ORAL TABLET DELAYED RELEASE 1 PO 30 MIN BEFORE 1ST MEAL 2010 OMEPRAZOLE 20 MG ORAL TABLET DELAYED RELEASE 912129 OMEPRAZOLE Inactive FENOFIBRATE 145 MG ORAL TABLET 1 po qd FENOFIBRATE 145 MG ORAL TABLET 827465 FENOFIBRATE Inactive BACTRIM DS 800-160 MG ORAL TABLET 1 bid x 14 day start 09-28-13 BACTRIM DS 800-160 MG ORAL TABLET 553239 SULFAMETHOXAZOLE- TRIMETHOPRIM Inactive B-12 100 MCG ORAL TABLET Take one by mouth daily B-12 100 MCG ORAL TABLET CYANOCOBALAMIN Inactive GABAPENTIN 100 MG ORAL CAPSULE 1 po bid GABAPENTIN 100 MG ORAL CAPSULE 500142 GABAPENTIN Inactive HYDROCODONE-ACETAMINOPHEN 5-325 MG ORAL TABLET 1 tab by mouth every 6 hours as needed for pain HYDROCODONE-ACETAMINOPHEN 5-325 MG ORAL TABLET 109517 HYDROCODONE-ACETAMINOPHEN Inactive CIPRO 500 MG ORAL TABLET 1 bid x 14 days start 814 CIPRO 500 MG ORAL TABLET 491095 CIPROFLOXACIN HCL Inactive ALIGN 4 MG ORAL [...] SODIUM 50 MG ORAL TABLET DELAYED RELEASE 241820 DICLOFENAC SODIUM Inactive PREDNISONE 20 MG ORAL TABLET 2 tablets once daily for 2 days, then 1 tablet once daily for 2 days PREDNISONE 20 MG ORAL TABLET 230214 PREDNISONE Inactive TRUEDRAW LANCING DEVICE Test twice a day dx 250.0 TRUEDRAW LANCING DEVICE LANCET DEVICES Inactive TRUERESULT BLOOD GLUCOSE w/Device KIT test blood sugar twice daily dx 250.00 TRUERESULT BLOOD GLUCOSE w/Device KIT BLOOD GLUCOSE MONITORING SUPPL Inactive FLONASE 50 MCG/ACT NASAL SUSPENSION 1 spray each nostril twice daily until bottle empty FLONASE 50 MCG/ACT NASAL SUSPENSION 7235793 FLUTICASONE PROPIONATE Inactive VENTOLIN HFA 108 (90 Base) MCG/ACT INHALATION AEROSOL SOLUTION 1-2 puffs every 4 hours if needed for cough/congestion VENTOLIN HFA 108 (90 Base) MCG/ACT INHALATION AEROSOL SOLUTION ALBUTEROL SULFATE Inactive REQUIP 2 MG ORAL TABLET Take one tablet at bedtime prn REQUIP 2 MG ORAL TABLET 909119 ROPINIROLE HCL Inactive SUPER B COMPLEX/VITAMIN C ORAL TABLET 1 qd SUPER B COMPLEX/VITAMIN C ORAL TABLET 70650820805 B COMPLEX-C Inactive TRUEDRAW LANCING DEVICE test blood sugar twice daily dx: 250.00 TRUEDRAW LANCING DEVICE LANCET DEVICES Inactive TRUETEST TEST IN VITRO STRIP test blood sugar twice daily. DX 250.0 TRUETEST TEST IN VITRO STRIP GLUCOSE BLOOD Inactive CYCLOBENZAPRINE HCL 10 MG ORAL TABLET 1 po TID PRN Muscle Spasm CYCLOBENZAPRINE HCL 10 MG ORAL TABLET 836183 CYCLOBENZAPRINE HCL Inactive DICLOFENAC SODIUM 50 MG ORAL TABLET DELAYED RELEASE 1 po BID PRN Pain DICLOFENAC SODIUM 50 MG ORAL TABLET DELAYED RELEASE 716168 DICLOFENAC SODIUM Inactive DICLOFENAC SODIUM 75 MG ORAL TABLET DELAYED RELEASE 1 po BID PRN Pain DICLOFENAC SODIUM 75 MG ORAL TABLET DELAYED RELEASE 524548 DICLOFENAC SODIUM Inactive NASONEX 50 MCG/ACT NASAL SUSPENSION 2 actuations in each nostril q day 07/15 NASONEX 50 MCG/ACT NASAL SUSPENSION 7166634 MOMETASONE FUROATE Inactive GUAIFENESIN ER 600 MG ORAL TABLET EXTENDED RELEASE 12 HOUR 1 twice a day as needed for congestion GUAIFENESIN ER 600 MG ORAL TABLET EXTENDED RELEASE 12 HOUR GUAIFENESIN Inactive AZITHROMYCIN 250 MG ORAL TABLET 2 po qd x 1, then 1 po qd x 4 AZITHROMYCIN 250 MG ORAL TABLET 378075 AZITHROMYCIN Inactive PROMETHAZINE-CODEINE 6.25-10 MG/5ML ORAL SYRUP 5ml po q6hr PRN Cough PROMETHAZINE-CODEINE 6.25-10 MG/5ML ORAL SYRUP 694355 PROMETHAZINE-CODEINE Inactive TRILIPIX 135 MG ORAL CAPSULE DELAYED RELEASE 1 q hs TRILIPIX 135 MG ORAL CAPSULE DELAYED RELEASE 569069 CHOLINE FENOFIBRATE Inactive TRIAMCINOLONE ACETONIDE 0.1 % EXTERNAL OINTMENT Apply to affected areas TID for up to 2 weeks TRIAMCINOLONE ACETONIDE 0.1 % EXTERNAL OINTMENT 1088034 TRIAMCINOLONE ACETONIDE Inactive PREDNISONE 20 MG ORAL TABLET 2 tabs daily for 3 days, 1 tab daily for 3 days, 1/2 tab daily for 2 days PREDNISONE 20 MG ORAL TABLET 476504 PREDNISONE Inactive PREDNISONE 20 MG ORAL TABLET 2 tabs daily for 3 days, 1 tab daily for 3 days, 1/2 tab daily for 2 days PREDNISONE 20 MG ORAL TABLET 136195 PREDNISONE Inactive BACTRIM DS 800-160 MG ORAL TABLET 1 po BID x 7 days BACTRIM DS 800-160 MG ORAL TABLET 973988 SULFAMETHOXAZOLE-TRIMETHOPRIM Inactive ZITHROMAX 250 MG ORAL TABLET 2 po today, then 1 po q days 2-5 ZITHROMAX 250 MG ORAL TABLET 781386 AZITHROMYCIN Inactive PREDNISONE 20 MG ORAL TABLET 2 po qd x 5 days PREDNISONE 20 MG ORAL TABLET 840899 PREDNISONE Inactive Advance Directives Directive Description Start Date DISCUSSED WITH PATIENT -- NO DECISION MADE Immunizations Vaccine Administration Date Value Standard Description Seasonal influenza vaccine, injectable, containing preservative, for > 3 years old (Afluria, FluLaval, Fluzone, Fluvirin, Fluarix, Agriflu(>=18 yo)) Fluzone (>3 yrs.) [[id number]] Influenza, seasonal, injectable influenza immunization (Flu Vax) has been administered 02/22/2012 influenza virus vaccine, unspecified formulation Seasonal influenza vaccine, injectable, containing preservative, for > 3 years old (Afluria, FluLaval, Fluzone, Fluvirin, Fluarix, Agriflu(>=18 yo)) Fluzone (>3 yrs.) [[id number]] Influenza, seasonal, injectable Vital Signs Date Name [...] ... - Chemistry sodium, serum 141 mmol/L 902-548 1446/01/16 carbon dioxide, venous blood 28.3 mmol/L 21.0-32.0 [...] 6.7 % 4.3-6.0 cholesterol, serum 106 mg/dL 741-251 8377/01/16 triglyceride, serum, fasting 173 mg/dL 30-200 HDL [...] Magnesium - Chemistry sodium, serum 142 mmol/L 903-883 5022/07/16 carbon dioxide, venous blood 29.4 mmol/L 21.0-32.0 [...] Panel - Chemistry cholesterol, serum 170 mg/dL 107-372 5462/07/16 triglyceride, serum, fasting 266 mg/dL 30-200 HDL cholesterol, serum 42 mg/dL 32-60 LDL cholesterol, serum 75 mg/dL 0-130 Encounters Code Encounter Date Provider Facility CPT-39280 Level 4 Est. Patient 14:46:36 CDT Tu Landeros MD [facility] CPT-25464 Level 3 Est. Patient 10:28:05 CDT Tu Landeros MD [facility] CPT-54265 Level 3 Est. Patient 09:11:32 CDT Tu Landeros MD [facility] CPT-80462 Level 3 Est. Patient 10:13:19 MEDICAL DEVICE SALES Lesli Kellogg [facility] CPT-40644 Level 4 Est. Patient 13:42:02 MEDICAL DEVICE SALES Tu Landeros MD [facility] CPT-23186 Level 3 Est. Patient 14:20:36 CDT Tu Landeros MD [facility] CPT-35030 Level 4 Est. Patient 14:28:34 CDT Tu Landeros MD [facility] CPT-13362 Level 3 Est. Patient 13:33:09 CDT Tu Landeros MD [facility] CPT-76515 Level 4 Est. Patient 14:29:21 CDT Tu Landeros MD [facility] CPT-06108 Level 4 Est. Patient 09:08:17 MEDICAL DEVICE SALES Tu Landeros MD [facility] CPT-37772 Level 4 Est. Patient 14:40:19 CDT Tu Landeros MD [facility] CPT-02064 Level 4 Est. Patient 14:06:04 MEDICAL DEVICE SALES Tu Landeros MD [facility] CPT-30129 Level 3 Est. Patient 14:05:18 MEDICAL DEVICE SALES Tu Landeros MD [facility] CPT-57663 Level 3 Est. Patient 10:06:54 MEDICAL DEVICE SALES Miranda Farah RETORT LOADER [facility] CPT-80193 Level 4 Est. Patient 13:50:18 MEDICAL DEVICE SALES Tu Landeros MD [facility] CPT-49747 Level 3 Est. Patient 10:30:04 CDT Tu Landeros MD [facility] CPT-94715 Level 4 Est. Patient 11:03:38 CDT Tu Landeros MD [facility] CPT-35238 Level 3 Est. Patient 10:20:44 CDT Fab Morales DO [facility] CPT-98459 Level 4 Est. Patient 14:38:57 CDT Tu Landeros MD [facility] CPT-34043 Level 4 Est. Patient 14:27:39 MEDICAL DEVICE SALES Tu Landeros MD [facility] CPT-25860 Level 4 Est. Patient 09:45:25 CDT Tu Landeros MD [facility] CPT-09601 Level 4 Est. Patient 09:05:20 MEDICAL DEVICE SALES Tu Landeros MD [facility] CPT-52527 Level 4 Est. Patient 14:09:06 CDT Tu Landeros MD [facility] CPT-91197 Level 3 Est. Patient 13:36:54 CDT Tu Landeros MD [facility] CPT-50461 Level 3 Est. Patient 08:59:14 CDT Tu Landeros MD [facility] CPT-16055 Level 3 Est. Patient 13:48:35 CDT Fab Morales DO [facility] CPT-26548 Level 4 Est. Patient 10:05:48 CDT Tu Landeros MD [facility] CPT-43167 Level 3 Est. Patient 13:38:42 CDT Marek BANKS [facility] CPT-93099 Level 5 Est. Patient 08:08:39 CDT Jerrica FRANCIS [facility] CPT-66414 Level 4 Est. Patient 14:23:38 CDT Tu Landeros MD [facility] CPT-76376 Level 3 Est. Patient 11:44:04 CDT Tu Landeros MD [facility] CPT-31758 Level 3 Est. Patient 11:03:20 MEDICAL DEVICE SALES Tu Landeros MD [facility] CPT-85633 Level 3 Est. Patient 11:03:14 MEDICAL DEVICE SALES Tu Landeros MD [facility] CPT-05780 Level 3 Est. Patient 12:42:49 CDT Tu Landeros MD [facility] CPT-48056 Level 3 Est. Patient 11:52:06 CDT Tu Landeros MD [facility] CPT-44016 Level 3 Est. Patient 13:58:11 CDT Tu Landeros MD [facility] CPT-00651 Level 3 Est. Patient 17:50:07 CDT Fab Morales DO [facility] CPT-75943 Level 3 Est. Patient 12:06:29 CDT Elvira Cervantes MD PhD [facility] CPT-92913 Level 3 Est. Patient 15:50:32 CDT Tu Landeros MD [facility] CPT-25320 Level 4 Est. Patient 16:08:29 CDT Tu Landeros MD [facility] CPT-14280 Level 3 Est. Patient 16:04:19 CDT Tu Landeros MD [facility] CPT-92736 Level 3 Est. Patient 11:22:30 MEDICAL DEVICE SALES Tu Landeros MD [facility] CPT-97991 Level 4 Est. Patient 16:24:02 MEDICAL DEVICE SALES Tu Landeros MD [facility] CPT-18747 Level 3 Est. Patient 17:21:23 MEDICAL DEVICE SALES Tu Landeros MD [facility] Procedures Code Procedure Name Date Entry Date Standard Description CPT-G0439 [facility] Annual Wellness Exam 14:46:36 CDT CPT-05387 Shoulder, right, comp min 2V - XRAY USE ONLY 13:50:22 CDT CPT-G0009 Administration of Pneumococcal Vaccine 15:08:26 CDT CPT-92271 Prevnar 13 Intramuscular Suspension 15:08:26 CDT 10/08 CPT-G0439 Subsequent Annual Wellness Exam 14:29:22 CDT CPT-44903 Venipuncture Draw Fee 13:15:35 CDT CPT-93070 Magnesium - LAB USE ONLY 11:14:20 [employer] SALES CPT-79922 Lipid - LAB USE ONLY 11:14:20 [employer]ICAL [employer]ICE SALES CPT-67128 HGBA1C - LAB USE ONLY 11:14:20 MEDICAL DEVICE SALES CPT-27546 CMP - LAB USE ONLY 11:14:19 MEDICAL DEVICE SALES CPT-08145 CBC - LAB USE ONLY 11:14:19 MEDICAL DEVICE SALES CPT-76374 Venipuncture Draw Fee 11:14:18 MEDICAL DEVICE SALES CPT-80569 First Vx - Ix admin for Medicare patients 16:46:52 CDT CPT-96413 Fluzone Preservative Free Intramuscular Suspension 16:46 :51 CDT CPT-75410 CBC - LAB USE ONLY 17:14:46 CDT CPT-08662 HGBA1C - LAB USE ONLY 17:14:46 CDT CPT-47677 Venipuncture Draw Fee 17:14:46 CDT CPT-G0438 Initial Annual Wellness Exam 14:13:04 CDT CPT-67627 Breathing Tx 10:06:54 [employer] SAL[employer] CPT-90495 Postop F/U Visit 10:02:45 CDT CPT-LR Lesion Removal 09:02:56 CDT CPT-JTINJ Asp/Joint Injection 15:51:27 [employer] SAL[employer] CPT-OV Office Visit 15:52:02 [employer]ICAL [employer]ICE SALES CPT-OV Office Visit 15:45:11 CDT CPT-000 Give Zostavax 14:09:06 CDT CPT-67687 Administration single or combination vaccine inc oral 15 :19:04 CDT CPT-66239 Zoster Vaccine (Zostavax) 15:19:04 CDT CPT-51338 Administration single or combination vaccine inc oral 20 :51:03 CDT CPT-85001 Influenza split virus > age 3 20:51:03 CDT CPT-44467 No Charge Offi Visit 14:52:03 CDT CPT-OV Office Visit 14:57:43 CDT CPT-OV Office Visit 15:22:32 CDT CPT-64998 Administration single or combination vaccine inc oral 11 :33:15 CDT CPT-77678 Influenza split virus > age 3 11:33:15 CDT
--- OUTSIDE RECORDS SUMMARY | 2018-04-25 11:43 | XMS REPORT | Clinical Summary ---
Author Author Admin, SACHI Organization [employer] Address Unknown Phone Unavailable Allergies, Adverse Reactions, [...] magnesium metabolism URI 465.9 Inactive Lesli Kellogg [employer] Acute upper respiratory infections of unspecified site [...] MD Shoulder pain, right ICD-719.41 Inactive Tu Landreos MD Great toe pain ICD-729.5 Inactive Tu Landeros MD Upper respiratory infection, viral ICD-465.9 Inactive Tu Landeros MD Medication List Medication Instructions Start Date Stop Date Generic Name NDC Status Provider Patient Instruction LOVAZA 1 GM ORAL CAPSULE 1 po qd [id number] ETHYL ESTERS [id number] Active Tu Landeros MD Active TRILIPIX 135 MG ORAL CAPSULE DELAYED RELEASE 1 q hs CHOLINE FENOFIBRATE 66452671816 No Longer Active Cynthia NUNOA Active TRIAMCINOLONE ACETONIDE 0.1 % EXTERNAL CREAM Apply to affected area TID for up to 2 weeks TRIAMCINOLONE ACETONIDE 99487956112 Active Tu Landeros MD Active INDOMETHACIN 50 MG ORAL CAPSULE 1 po TID PRN Pain INDOMETHACIN 81939100547 Active Tu Landeros MD Active PROMETHAZINE-CODEINE 6.25-10 MG/5ML ORAL SYRUP 5ml po q6hr PRN Cough PROMETHAZINE-CODEINE 01376989154 No Longer Active Tu Landeros MD Active AZITHROMYCIN 250 MG ORAL TABLET 2 po qd x 1, then 1 po qd x 4 AZITHROMYCIN 27921597183 No Longer Active Tu Landeros MD Active GUAIFENESIN ER 600 MG ORAL TABLET EXTENDED RELEASE 12 HOUR 1 twice a day as needed for congestion GUAIFENESIN 83602417234 No Longer Active Tu Landeros MD Active PREDNISONE 20 MG ORAL TABLET 2 po qd x 5 days PREDNISONE 27552902529 No Longer Active Tu Landeros MD Active FLUTICASONE PROPIONATE 50 MCG/ACT NASAL SUSPENSION 2 sprays/nostril qd PRN Congestion/Allergies FLUTICASONE PROPIONATE 58499317373 Active Tu Landeros MD Active NASONEX 50 MCG/ACT NASAL SUSPENSION 2 actuations in each nostril q day 07/15 MOMETASONE FUROATE 41761295689 No Longer Active Tu Landeros MD Active MAGNESIUM OXIDE 400 MG ORAL TABLET 1 po BID MAGNESIUM OXIDE 48855478674 Active Tu Landeros MD Active SIMVASTATIN 20 MG ORAL TABLET 0.5 po qHS SIMVASTATIN 65957740342 Active Tu Landeros MD Active DICLOFENAC SODIUM 75 MG ORAL TABLET DELAYED RELEASE 1 po BID PRN Pain DICLOFENAC SODIUM 14745864790 No Longer Active Tu Landeros MD Active GABAPENTIN 100 MG ORAL CAPSULE 1 po TID GABAPENTIN 29699167081 Active Tu Landeros MD Active DICLOFENAC SODIUM 50 MG ORAL TABLET DELAYED RELEASE 1 po BID PRN Pain DICLOFENAC SODIUM 57582498988 No Longer Active Tu Landeros MD Active CYCLOBENZAPRINE HCL 10 MG ORAL TABLET 1 po TID PRN Muscle Spasm CYCLOBENZAPRINE HCL 80888713061 No Longer Active Tu Landeros MD Active INVOKANA 100 MG ORAL TABLET 1 po qd CANAGLIFLOZIN 70365393547 Active José Luis Becerra MD Active GLIPIZIDE 5 MG ORAL TABLET 1 po qd GLIPIZIDE 97491572760 No Longer Active Tu Landeros MD Active VENLAFAXINE HCL 75 MG ORAL TABLET 1 po BID VENLAFAXINE HCL 42311916198 Active Tu Landeros MD Active GLIMEPIRIDE 1 MG ORAL TABLET 1 po qd GLIMEPIRIDE 62159197802 No Longer Active Tu Landeros MD Active TRUE METRIX BLOOD GLUCOSE TEST IN VITRO STRIP Test blood sugar BID Dx: E11.9 GLUCOSE BLOOD 86562905875 Active Tu Landeros MD Active TRUE METRIX AIR GLUCOSE METER w/Device KIT Test blood glucose BID Dx: E11.9 BLOOD GLUCOSE MONITORING SUPPL 73830238535 Active Tu Landeros MD Active TRUETEST TEST IN VITRO STRIP test blood sugar twice daily. DX 250.0 GLUCOSE BLOOD 73337366107 No Longer Active Mirna Stanley LPN Active TRUEDRAW LANCING DEVICE test blood sugar twice daily dx: 250.00 LANCET DEVICES 44352512783 No Longer Active Mirna Stanley LPN Active ENALAPRIL MALEATE 20 MG ORAL TABLET 2 po qd ENALAPRIL MALEATE 79216993959 Active uT Landeros MD Active SUPER B COMPLEX/VITAMIN C ORAL TABLET 1 qd B COMPLEX- C 41140243854 No Longer Active Tu Landeros MD Active ASPIRIN EC 81 MG ORAL TABLET DELAYED RELEASE 1 po qd ASPIRIN 61637521305 Active Tu Landeros MD Active GLUCOSAMINE 500 MG TABS 2 po qd GLUCOSAMINE Active Tu Landeros MD Active FISH OIL 1000 MG ORAL CAPSULE 1 po qd OMEGA-3 FATTY ACIDS 18713275856 Active Tu Landeros MD Active METFORMIN HCL 1000 MG ORAL TABLET 1 po BID METFORMIN HCL 95520619134 Active Tu Landeros MD Active KLOR-CON 10 10 MEQ ORAL TABLET EXTENDED RELEASE 2 po qd POTASSIUM CHLORIDE 14492093774 Active Tu Landeros MD Active FUROSEMIDE 40 MG ORAL TABLET 1 po qd FUROSEMIDE 19108024152 Active Tu Landeros MD Active REQUIP 2 MG ORAL TABLET 1 po qHS PRN Restless legs ROPINIROLE HCL 03621513141 Active Tu Landeros MD Active REQUIP 2 MG ORAL TABLET Take one tablet at bedtime prn ROPINIROLE HCL 51068145197 No Longer Active Tu Landeros MD Active VENTOLIN HFA 108 (90 Base) MCG/ACT INHALATION AEROSOL SOLUTION 1-2 puffs every 4 hours if needed for cough/congestion ALBUTEROL SULFATE 04617752079 No Longer Active Ambika Aden APRN Active ZITHROMAX 250 MG ORAL TABLET 2 po today, then 1 po q days 2-5 AZITHROMYCIN 26684065680 No Longer Active Miranda Farah APRN Active FLONASE 50 MCG/ACT NASAL SUSPENSION 1 spray each nostril twice daily until bottle empty FLUTICASONE PROPIONATE 05424578490 No Longer Active Tu Landeros MD Active COLACE 100 MG ORAL CAPSULE 1 po BID PRN Constipation DOCUSATE SODIUM 20145243859 Active Tu Landeros MD Active TRUERESULT BLOOD GLUCOSE w/Device KIT test blood sugar twice daily dx 250.00 BLOOD GLUCOSE MONITORING SUPPL 90584836988 No Longer Active Tu Landeros MD Active TRUEDRAW LANCING DEVICE Test twice a day dx 250.0 LANCET DEVICES 73508543669 No Longer Active Tu Landeros MD Active PREDNISONE 20 MG ORAL TABLET 2 tablets once daily for 2 days, then 1 tablet once daily for 2 days PREDNISONE 92688442554 No Longer Active Tu Landeros MD Active DICLOFENAC SODIUM 50 MG ORAL TABLET DELAYED RELEASE 1 tablet by mouth three times a day as needed DICLOFENAC SODIUM 94330256621 No Longer Active Fab Morales DO Active EMBRACE BLOOD GLUCOSE TEST IN VITRO STRIP test blood sugar twice daily DX 250.0 GLUCOSE BLOOD 60934031725 No Longer Active Tu Landeros MD Active TRUETEST TEST IN VITRO STRIP test blood sugar three times daily dx: 250.00 GLUCOSE BLOOD 77179801440 No Longer Active Suze VOGEL Active TRUERESULT BLOOD GLUCOSE w/Device KIT use to test blood sugar tid dx: 250.00 BLOOD GLUCOSE MONITORING SUPPL 96469848142 No Longer Active Suzebianca VOGEL Active ALIGN 4 MG ORAL CAPSULE 1 tid PROBIOTIC PRODUCT 53109702139 No Longer Active Shaun Sy MD Active CIPRO 500 MG ORAL TABLET 1 bid x 14 days start 09-28-13 CIPROFLOXACIN HCL 66950376794 No Longer Active Shaun Sy MD Active TRAMADOL HCL 50 MG ORAL TABLET 1-2 tablets every 6 hours as needed for pain TRAMADOL HCL 15469594273 Active Tu Landeros MD Active HYDROCODONE-ACETAMINOPHEN 5-325 MG ORAL TABLET 1 tab by mouth every 6 hours as needed for pain HYDROCODONE-ACETAMINOPHEN 43596431028 No Longer Active Tu Landeros MD Active OMEPRAZOLE 20 MG ORAL CAPSULE DELAYED RELEASE 1 po q a.m. OMEPRAZOLE 15457507988 Active Tu Landeros MD Active GABAPENTIN 100 MG ORAL CAPSULE 1 po bid GABAPENTIN 40052299870 No Longer Active Tu Landeros MD Active B-12 100 MCG ORAL TABLET Take one by mouth daily CYANOCOBALAMIN 20946162395 No Longer Active Tu Landeros MD Active BACTRIM DS 800-160 MG ORAL TABLET 1 bid x 14 day start 09-28-13 SULFAMETHOXAZOLE-TRIMETHOPRIM 45904181574 No Longer Active Tu Landeros MD Active CARVEDILOL 12.5 MG ORAL TABLET 1 po BID CARVEDILOL 03555603260 Active Tu Landeros MD Active FENOFIBRATE 145 MG ORAL TABLET 1 po qd FENOFIBRATE 57041767035 No Longer Active JASPREET Perez Active OMEPRAZOLE 20 MG ORAL TABLET DELAYED RELEASE 1 PO 30 MIN BEFORE 1ST MEAL 2010 OMEPRAZOLE 55624240017 No Longer Active JASPREET Perez Active SIMVASTATIN 40 MG ORAL TABLET Take one by mouth daily SIMVASTATIN 30004281080 No Longer Active JASPREET Perez Active VENLAFAXINE HCL 75 MG ORAL TABLET 1 po BID VENLAFAXINE HCL 22317494868 No Longer Active JASPREET Perez Active CIPRO 500 MG ORAL TABLET 1 tablet by mouth twice daily CIPROFLOXACIN HCL 97222934021 No Longer Active Tu Landeros MD Active VENLAFAXINE HCL 37.5 MG ORAL TABLET 1 po BID VENLAFAXINE HCL 53470745188 No Longer Active Suze NUNOA Active LAMISIL 250 MG ORAL TABLET 1 po qd TERBINAFINE HCL 47040940913 No Longer Active Tu Landeros MD Active LORTAB 5-500 MG ORAL TABLET 1/2 to 1 tablet by mouth every 4 hours as needed for pain HYDROCODONE-ACETAMINOPHEN 25588115672 No Longer Active Tu Landeros MD Active HYDROCODONE-ACETAMINOPHEN 5-500 MG ORAL TABLET take one po Q 4-6 hours prn HYDROCODONE-ACETAMINOPHEN 23805896730 No Longer Active Tu Landeros MD Active BACTRIM DS 800-160 MG ORAL TABLET 1 po BID x 7 days SULFAMETHOXAZOLE-TRIMETHOPRIM 43182705355 No Longer Active Tu Landeros MD Active VENLAFAXINE HCL 75 MG ORAL TABLET 1 po BID VENLAFAXINE HCL 16782007324 No Longer Active Elvira Cervantes MD PhD Active TRAMADOL HCL 50 MG ORAL TABLET 1 tablets every 6 hours as needed for pain TRAMADOL HCL 00800362754 No Longer Active Tu Landeros MD Active ACCU-CHEDawson FASTCLIX LANCETS Use to check bloodsugar three times daily as needed LANCETS 94295084130 No Longer Active Tu Landeros MD Active ACCU-CHEDawson KEYONA PLUS IN VITRO STRIP Use for testing bloodsugars three times daily as needed GLUCOSE BLOOD 83244759058 No Longer Active Tu Landeros MD Active ACCU-CHEK KEYONA PLUS w/Device KIT Use for testing bloodsugars three times daily as needed BLOOD GLUCOSE MONITORING SUPPL 93139047866 No Longer Active Tu Landeros MD Active SPIRONOLACTONE 25 MG ORAL TABLET 0.5 tablet by mouth daily 09/09 SPIRONOLACTONE 56680204505 No Longer Active Tu Landreos MD Active ALPRAZOLAM 0.5 MG ORAL TABLET 1 tab every 6hrs as needed ALPRAZOLAM 48712977316 No Longer Active Tu Landeros MD Active AUGMENTIN 875-125 MG ORAL TABLET 1 tab by mouth twice daily with food AMOXICILLIN-POT CLAVULANATE 25343265826 No Longer Active Tu Landeros MD Active PREDNISONE 20 MG ORAL TABLET 2 tabs daily for 3 days, 1 tab daily for 3 days, 1/2 tab daily for 2 days PREDNISONE 26984470929 No Longer Active Tu Landeros MD Active XANAX 0.5 MG ORAL TABLET 1 tablet every 6 hrs prn ALPRAZOLAM 06801869356 No Longer Active Tu Landeros MD Active PREDNISONE 20 MG ORAL TABLET 2 tabs daily for 3 days, 1 tab daily for 3 days, 1/2 tab daily for 2 days PREDNISONE 67967079814 No Longer Active Tu Landeros MD Active TRIAMCINOLONE ACETONIDE 0.1 % EXTERNAL OINTMENT Apply to affected areas TID for up to 2 weeks TRIAMCINOLONE ACETONIDE 28941127476 No Longer Active Tu Landeros MD Active LORTAB 5-500 MG ORAL TABLET 1/2 to 1 tablet by mouth every 4 hours as needed for pain HYDROCODONE-ACETAMINOPHEN 97405594380 No Longer Active Tu Landeros MD Active MULTIVITAMINS TABS Take one by mouth daily MULTIPLE VITAMIN 66984499285 No Longer Active Tu Landeros MD Active MELATONIN 5 MG ORAL TABLET Take one by mouth daily MELATONIN 11853704767 No Longer Active Tu Landeros MD Active SOMA 350 MG ORAL TABLET 1 po q 6 hours prn spasm CARISOPRODOL 40427236330 No Longer Active Tu Landeros MD Active MECLIZINE HCL 25 MG ORAL TABLET CHEWABLE 1 four times a day as needed for dizziness MECLIZINE HCL 67028461598 No Longer Active Fab Morales DO Active ANGEL BREEZE 2 TEST IN VITRO DISK test tid prn GLUCOSE BLOOD 60093294740 No Longer Active Negra Scott RN Active REGLAN 10 MG ORAL TABLET 1 po TID PRN Nausea METOCLOPRAMIDE HCL 53466541439 No Longer Active Tu Landeros MD Active METFORMIN HCL 500 MG ORAL TABLET 1 PO BID METFORMIN HCL 31863471860 No Longer Active Tu Landeros MD Active AMBIEN 10 MG ORAL TABLET 1 tab by mouth at bedtime as needed for sleep 06/10 ZOLPIDEM TARTRATE 77834467008 No Longer Active Tu Landeros MD Active FLUOXETINE HCL 40 MG ORAL CAPSULE 1 po q day FLUOXETINE HCL 53368158146 No Longer Active Mayra Willis Active TRILIPIX 135 MG ORAL CAPSULE DELAYED RELEASE 1 po qd CHOLINE FENOFIBRATE 09904081582 No Longer Active Tu Landeros MD Active AMBIEN 10 MG ORAL TABLET 1 tab by mouth at bedtime as needed for sleep 06/10 AMBIEN 10 MG ORAL TABLET 772491 ZOLPIDEM TARTRATE Inactive METFORMIN HCL 500 MG ORAL TABLET 1 PO BID METFORMIN HCL 500 MG ORAL TABLET 544306 METFORMIN HCL Inactive REGLAN 10 MG ORAL TABLET 1 po TID PRN Nausea REGLAN 10 MG ORAL TABLET 527178 METOCLOPRAMIDE HCL Inactive MECLIZINE HCL 25 MG ORAL TABLET CHEWABLE 1 four times a day as needed for dizziness MECLIZINE HCL 25 MG ORAL TABLET CHEWABLE 613498 MECLIZINE HCL Inactive SOMA 350 MG ORAL TABLET 1 po q 6 hours prn spasm SOMA 350 MG ORAL TABLET 976674 CARISOPRODOL Inactive MELATONIN 5 MG ORAL TABLET Take one by mouth daily MELATONIN 5 MG ORAL TABLET 996192 MELATONIN Inactive MULTIVITAMINS TABS Take one by mouth daily MULTIVITAMINS TABS MULTIPLE VITAMIN Inactive LORTAB 5-500 MG ORAL TABLET 1/2 to 1 tablet by mouth every 4 hours as needed for pain LORTAB 5-500 MG ORAL TABLET HYDROCODONE- ACETAMINOPHEN Inactive XANAX 0.5 MG ORAL TABLET 1 tablet every 6 hrs prn XANAX 0.5 MG ORAL TABLET 094429 ALPRAZOLAM Inactive AUGMENTIN 875-125 MG ORAL TABLET 1 tab by mouth twice daily with food AUGMENTIN 875-125 MG ORAL TABLET 150032 AMOXICILLIN-POT CLAVULANATE Inactive ALPRAZOLAM 0.5 MG ORAL TABLET 1 tab every 6hrs as needed ALPRAZOLAM 0.5 MG ORAL TABLET 267046 ALPRAZOLAM Inactive SPIRONOLACTONE 25 MG ORAL TABLET 0.5 tablet by mouth daily 09/09 SPIRONOLACTONE 25 MG ORAL TABLET 177665 SPIRONOLACTONE Inactive ACCU-CHEK KEYONA PLUS w/Device KIT [...] times daily as needed ACCU-CHEK FASTCLIX LANCETS 56229143039 LANCETS Inactive TRAMADOL HCL 50 MG ORAL TABLET 1 tablets every 6 hours as needed for pain TRAMADOL HCL 50 MG ORAL TABLET 131775 TRAMADOL HCL Inactive VENLAFAXINE HCL 75 MG ORAL TABLET 1 po BID VENLAFAXINE HCL 75 MG ORAL TABLET 404476 VENLAFAXINE HCL Inactive HYDROCODONE-ACETAMINOPHEN 5-500 MG ORAL TABLET take one po Q 4-6 hours prn HYDROCODONE-ACETAMINOPHEN 5-500 MG ORAL TABLET HYDROCODONE-ACETAMINOPHEN Inactive LORTAB 5-500 MG ORAL TABLET 1/2 to 1 tablet by mouth every 4 hours as needed for pain LORTAB 5-500 MG ORAL TABLET HYDROCODONE- ACETAMINOPHEN Inactive LAMISIL 250 MG ORAL TABLET 1 po qd LAMISIL 250 MG ORAL TABLET 752525 TERBINAFINE HCL Inactive VENLAFAXINE HCL 37.5 MG ORAL TABLET 1 po BID VENLAFAXINE HCL 37.5 MG ORAL TABLET 204717 VENLAFAXINE HCL Inactive CIPRO 500 MG ORAL TABLET 1 tablet by mouth twice daily CIPRO 500 MG ORAL TABLET 754995 CIPROFLOXACIN HCL Inactive VENLAFAXINE HCL 75 MG ORAL TABLET 1 po BID VENLAFAXINE HCL 75 MG ORAL TABLET 025209 VENLAFAXINE HCL Inactive SIMVASTATIN 40 MG ORAL TABLET Take one by mouth daily SIMVASTATIN 40 MG ORAL TABLET 662400 SIMVASTATIN Inactive OMEPRAZOLE 20 MG ORAL TABLET DELAYED RELEASE 1 PO 30 MIN BEFORE 1ST MEAL 2010 OMEPRAZOLE 20 MG ORAL TABLET DELAYED RELEASE 084651 OMEPRAZOLE Inactive FENOFIBRATE 145 MG ORAL TABLET 1 po qd FENOFIBRATE 145 MG ORAL TABLET 212192 FENOFIBRATE Inactive BACTRIM DS 800-160 MG ORAL TABLET 1 bid x 14 day start 09-28-13 BACTRIM DS 800-160 MG ORAL TABLET 402623 SULFAMETHOXAZOLE- TRIMETHOPRIM Inactive B-12 100 MCG ORAL TABLET Take one by mouth daily B-12 100 MCG ORAL TABLET CYANOCOBALAMIN Inactive GABAPENTIN 100 MG ORAL CAPSULE 1 po bid GABAPENTIN 100 MG ORAL CAPSULE 813881 GABAPENTIN Inactive HYDROCODONE-ACETAMINOPHEN 5-325 MG ORAL TABLET 1 tab by mouth every 6 hours as needed for pain HYDROCODONE-ACETAMINOPHEN 5-325 MG ORAL TABLET 583761 HYDROCODONE-ACETAMINOPHEN Inactive CIPRO 500 MG ORAL TABLET 1 bid x 14 days start 814 CIPRO 500 MG ORAL TABLET 348498 CIPROFLOXACIN HCL Inactive ALIGN 4 MG ORAL [...] SODIUM 50 MG ORAL TABLET DELAYED RELEASE 604839 DICLOFENAC SODIUM Inactive PREDNISONE 20 MG ORAL TABLET 2 tablets once daily for 2 days, then 1 tablet once daily for 2 days PREDNISONE 20 MG ORAL TABLET 627317 PREDNISONE Inactive TRUEDRAW LANCING DEVICE Test twice a day dx 250.0 TRUEDRAW LANCING DEVICE LANCET DEVICES Inactive TRUERESULT BLOOD GLUCOSE w/Device KIT test blood sugar twice daily dx 250.00 TRUERESULT BLOOD GLUCOSE w/Device KIT BLOOD GLUCOSE MONITORING SUPPL Inactive FLONASE 50 MCG/ACT NASAL SUSPENSION 1 spray each nostril twice daily until bottle empty FLONASE 50 MCG/ACT NASAL SUSPENSION 7229796 FLUTICASONE PROPIONATE Inactive VENTOLIN HFA 108 (90 Base) MCG/ACT INHALATION AEROSOL SOLUTION 1-2 puffs every 4 hours if needed for cough/congestion VENTOLIN HFA 108 (90 Base) MCG/ACT INHALATION AEROSOL SOLUTION ALBUTEROL SULFATE Inactive REQUIP 2 MG ORAL TABLET Take one tablet at bedtime prn REQUIP 2 MG ORAL TABLET 854793 ROPINIROLE HCL Inactive SUPER B COMPLEX/VITAMIN C ORAL TABLET 1 qd SUPER B COMPLEX/VITAMIN C ORAL TABLET 77877189774 B COMPLEX-C Inactive TRUEDRAW LANCING DEVICE test blood sugar twice daily dx: 250.00 TRUEDRAW LANCING DEVICE LANCET DEVICES Inactive TRUETEST TEST IN VITRO STRIP test blood sugar twice daily. DX 250.0 TRUETEST TEST IN VITRO STRIP GLUCOSE BLOOD Inactive CYCLOBENZAPRINE HCL 10 MG ORAL TABLET 1 po TID PRN Muscle Spasm CYCLOBENZAPRINE HCL 10 MG ORAL TABLET 125995 CYCLOBENZAPRINE HCL Inactive DICLOFENAC SODIUM 50 MG ORAL TABLET DELAYED RELEASE 1 po BID PRN Pain DICLOFENAC SODIUM 50 MG ORAL TABLET DELAYED RELEASE 798974 DICLOFENAC SODIUM Inactive DICLOFENAC SODIUM 75 MG ORAL TABLET DELAYED RELEASE 1 po BID PRN Pain DICLOFENAC SODIUM 75 MG ORAL TABLET DELAYED RELEASE 655954 DICLOFENAC SODIUM Inactive NASONEX 50 MCG/ACT NASAL SUSPENSION 2 actuations in each nostril q day 07/15 NASONEX 50 MCG/ACT NASAL SUSPENSION 0832941 MOMETASONE FUROATE Inactive GUAIFENESIN ER 600 MG ORAL TABLET EXTENDED RELEASE 12 HOUR 1 twice a day as needed for congestion GUAIFENESIN ER 600 MG ORAL TABLET EXTENDED RELEASE 12 HOUR GUAIFENESIN Inactive AZITHROMYCIN 250 MG ORAL TABLET 2 po qd x 1, then 1 po qd x 4 AZITHROMYCIN 250 MG ORAL TABLET 880320 AZITHROMYCIN Inactive PROMETHAZINE-CODEINE 6.25-10 MG/5ML ORAL SYRUP 5ml po q6hr PRN Cough PROMETHAZINE-CODEINE 6.25-10 MG/5ML ORAL SYRUP 091947 PROMETHAZINE-CODEINE Inactive TRILIPIX 135 MG ORAL CAPSULE DELAYED RELEASE 1 q hs TRILIPIX 135 MG ORAL CAPSULE DELAYED RELEASE 257432 CHOLINE FENOFIBRATE Inactive TRIAMCINOLONE ACETONIDE 0.1 % EXTERNAL OINTMENT Apply to affected areas TID for up to 2 weeks TRIAMCINOLONE ACETONIDE 0.1 % EXTERNAL OINTMENT 4955136 TRIAMCINOLONE ACETONIDE Inactive PREDNISONE 20 MG ORAL TABLET 2 tabs daily for 3 days, 1 tab daily for 3 days, 1/2 tab daily for 2 days PREDNISONE 20 MG ORAL TABLET 026913 PREDNISONE Inactive PREDNISONE 20 MG ORAL TABLET 2 tabs daily for 3 days, 1 tab daily for 3 days, 1/2 tab daily for 2 days PREDNISONE 20 MG ORAL TABLET 914058 PREDNISONE Inactive BACTRIM DS 800-160 MG ORAL TABLET 1 po BID x 7 days BACTRIM DS 800-160 MG ORAL TABLET 850355 SULFAMETHOXAZOLE-TRIMETHOPRIM Inactive ZITHROMAX 250 MG ORAL TABLET 2 po today, then 1 po q days 2-5 ZITHROMAX 250 MG ORAL TABLET 390777 AZITHROMYCIN Inactive PREDNISONE 20 MG ORAL TABLET 2 po qd x 5 days PREDNISONE 20 MG ORAL TABLET 743260 PREDNISONE Inactive Advance Directives Directive Description Start Date DISCUSSED WITH PATIENT -- NO DECISION MADE Immunizations Vaccine Administration Date Value Standard Description Seasonal influenza vaccine, injectable, containing preservative, for > 3 years old (Afluria, FluLaval, Fluzone, Fluvirin, Fluarix, Agriflu(>=18 yo)) Fluzone (>3 yrs.) [[id number]] Influenza, seasonal, injectable influenza immunization (Flu Vax) has been administered 02/22/2012 influenza virus vaccine, unspecified formulation Seasonal influenza vaccine, injectable, containing preservative, for > 3 years old (Afluria, FluLaval, Fluzone, Fluvirin, Fluarix, Agriflu(>=18 yo)) Fluzone (>3 yrs.) [[id number]] Influenza, seasonal, injectable Vital Signs Date Name [...] ... - Chemistry sodium, serum 141 mmol/L 542-774 0176/01/16 carbon dioxide, venous blood 28.3 mmol/L 21.0-32.0 [...] 6.7 % 4.3-6.0 cholesterol, serum 106 mg/dL 147-549 7713/01/16 triglyceride, serum, fasting 173 mg/dL 30-200 HDL [...] 6.4 % 4.3-6.0 sodium, serum 142 mmol/L 772-670 9092/07/16 carbon dioxide, venous blood 29.4 mmol/L 21.0-32.0 [...] Panel - Chemistry cholesterol, serum 170 mg/dL 598-014 3143/07/16 triglyceride, serum, fasting 266 mg/dL 30-200 HDL cholesterol, serum 42 mg/dL 32-60 LDL cholesterol, serum 75 mg/dL 0-130 Encounters Code Encounter Date Provider Facility CPT-37320 Level 4 Est. Patient 14:46:36 CDT Tu Landeros MD [facility] CPT-64030 Level 3 Est. Patient 10:28:05 CDT Tu Landeros MD [facility] CPT-63037 Level 3 Est. Patient 09:11:32 CDT Tu Landeros MD [facility] CPT-60389 Level 3 Est. Patient 10:13:19 [employer] MOL[employer] Lesli Kellogg [facility] CPT-19188 Level 4 Est. Patient 13:42:02 TOILET PRODUCTS MOLDER Tu Landeros MD [facility] CPT-65759 Level 3 Est. Patient 14:20:36 CDT Tu Landeros MD [facility] CPT-90548 Level 4 Est. Patient 14:28:34 CDT Tu Landeros MD [facility] CPT-39236 Level 3 Est. Patient 13:33:09 CDT Tu Landeros MD [facility] CPT-13912 Level 4 Est. Patient 14:29:21 CDT Tu Landeros MD [facility] CPT-95438 Level 4 Est. Patient 09:08:17 TOILET PRODUCTS MOLDER Tu Landeros MD [facility] CPT-51659 Level 4 Est. Patient 14:40:19 CDT Tu Landeros MD [facility] CPT-88626 Level 4 Est. Patient 14:06:04 TOILET PRODUCTS MOLDER Tu Landeros MD [facility] CPT-27042 Level 3 Est. Patient 14:05:18 TOILET PRODUCTS MOLDER Tu Landeros MD [facility] CPT-26579 Level 3 Est. Patient 10:06:54 [employer]ILE[employer] PRODUCTS MOLDER Miranda Farah [employer] [facility] CPT-32643 Level 4 Est. Patient 13:50:18 TOILET PRODUCTS MOLDER Tu Landeros MD [facility] CPT-71895 Level 3 Est. Patient 10:30:04 CDT Tu Landeros MD [facility] CPT-51586 Level 4 Est. Patient 11:03:38 CDT Tu Landeros MD [facility] CPT-43270 Level 3 Est. Patient 10:20:44 CDT Fab Morales DO [facility] CPT-81321 Level 4 Est. Patient 14:38:57 CDT Tu Landeros MD [facility] CPT-94501 Level 4 Est. Patient 14:27:39 TOILET PRODUCTS MOLDER Tu Landeros MD [facility] CPT-24305 Level 4 Est. Patient 09:45:25 CDT Tu Landeros MD [facility] CPT-70837 Level 4 Est. Patient 09:05:20 TOILET PRODUCTS MOLDER Tu Landeros MD [facility] CPT-99952 Level 4 Est. Patient 14:09:06 CDT Tu Landeros MD [facility] CPT-95620 Level 3 Est. Patient 13:36:54 CDT Tu Landeros MD [facility] CPT-69800 Level 3 Est. Patient 08:59:14 CDT Tu Landeros MD [facility] CPT-52997 Level 3 Est. Patient 13:48:35 CDT Fab Morales DO [facility] CPT-78771 Level 4 Est. Patient 10:05:48 CDT Tu Landeros MD [facility] CPT-98634 Level 3 Est. Patient 13:38:42 CDT Marek BANKS [facility] CPT-82610 Level 5 Est. Patient 08:08:39 CDT Jerrica FRANCIS [facility] CPT-24306 Level 4 Est. Patient 14:23:38 CDT Tu Landeros MD [facility] CPT-06110 Level 3 Est. Patient 11:44:04 CDT Tu Landeros MD [facility] CPT-29037 Level 3 Est. Patient 11:03:20 [employer]ILET PRODUCTS MOLDER Tu Landeros MD [facility] CPT-32650 Level 3 Est. Patient 11:03:14 [employer]ILET PRODUCTS MOLDER Tu Landeros MD [facility] CPT-30706 Level 3 Est. Patient 12:42:49 CDT Tu Landeros MD [facility] CPT-76464 Level 3 Est. Patient 11:52:06 CDT Tu Landeros MD [facility] CPT-19876 Level 3 Est. Patient 13:58:11 CDT Tu Landeros MD [facility] CPT-66223 Level 3 Est. Patient 17:50:07 CDT Fab Morales DO [facility] CPT-14474 Level 3 Est. Patient 12:06:29 CDT Elvira Cervantes MD PhD [facility] CPT-82918 Level 3 Est. Patient 15:50:32 CDT Tu Landeros MD [facility] CPT-69283 Level 4 Est. Patient 16:08:29 CDT Tu Landeros MD [facility] CPT-63330 Level 3 Est. Patient 16:04:19 CDT Tu Landeros MD [facility] CPT-08715 Level 3 Est. Patient 11:22:30 [employer]ILE[employer] PRODU[employer] MOLDER Tu Landeros MD [facility] CPT-59017 Level 4 Est. Patient 16:24:02 [employer]ILET PRODU[employer] MOLDER Tu Landeros MD [facility] CPT-91716 Level 3 Est. 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 Tu Landeros MD [facility] Procedures Code Procedure Name Date Entry Date Standard Description CPT-G0439 [facility] Annual Wellness Exam 14:46:36 CDT CPT-45409 Shoulder, right, comp min 2V - XRAY USE ONLY 13:50:22 CDT CPT-G0009 Administration of Pneumococcal Vaccine 15:08:26 CDT CPT-72192 Prevnar 13 Intramuscular Suspension 15:08:26 CDT 10/08 CPT-G0439 Subsequent Annual Wellness Exam 14:29:22 CDT CPT-41656 Venipuncture Draw Fee 13:15:35 CDT CPT-35721 Magnesium - LAB USE ONLY 11:14:20 [employer] CPT-62947 Lipid - LAB USE ONLY 11:14:20 [employer] CPT-20708 HGBA1C - LAB USE ONLY 11:14:20 [employer] CPT-87551 CMP - LAB USE ONLY 11:14:19 [employer] CPT-09896 CBC - LAB USE ONLY 11:14:19 [employer] CPT-11926 Venipuncture Draw Fee 11:14:18 [employer] CPT-16233 First Vx - Ix admin for Medicare patients 16:46:52 CDT CPT-82273 Fluzone Preservative Free Intramuscular Suspension 16:46 :51 CDT CPT-97087 CBC - LAB USE ONLY 17:14:46 CDT CPT-35596 HGBA1C - LAB USE ONLY 17:14:46 CDT CPT-49404 Venipuncture Draw Fee 17:14:46 CDT CPT-G0438 Initial Annual Wellness Exam 14:13:04 CDT CPT-19640 Breathing Tx 10:06:54 [employer] CPT-60043 Postop F/U Visit 10:02:45 CDT CPT-LR Lesion Removal 09:02:56 CDT CPT-JTINJ Asp/Joint Injection 15:51:27 [employer] CPT-OV Office Visit 15:52:02 [employer] CPT-OV Office Visit 15:45:11 CDT CPT-000 Give Zostavax 14:09:06 CDT CPT-51306 Administration single or combination vaccine inc oral 15 :19:04 CDT CPT-66566 Zoster Vaccine (Zostavax) 15:19:04 CDT CPT-74757 Administration single or combination vaccine inc oral 20 :51:03 CDT CPT-91911 Influenza split virus > age 3 20:51:03 CDT CPT-02432 No Charge Offi Visit 14:52:03 CDT CPT-OV Office Visit 14:57:43 CDT CPT-OV Office Visit 15:22:32 CDT CPT-94513 Administration single or combination vaccine inc oral 11 :33:15 CDT CPT-57577 Influenza split virus > age 3 11:33:15 CDT
--- OUTSIDE RECORDS SUMMARY | 2018-04-25 11:45 | XMS REPORT | Clinical Summary ---
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 Acute upper respiratory infections of unspecified site [...] 1 GM ORAL CAPSULE 1 po qd [id number] ETHYL ESTERS 00970680469 Active Tu Landeros MD Active TRILIPIX 135 MG ORAL CAPSULE DELAYED RELEASE 1 q hs CHOLINE FENOFIBRATE 99616344213 No Longer Active Cynthia NUNOA Active TRIAMCINOLONE ACETONIDE 0.1 % EXTERNAL CREAM Apply to affected area TID for up to 2 weeks TRIAMCINOLONE ACETONIDE 30586594821 Active Tu Landeros MD Active INDOMETHACIN 50 MG ORAL CAPSULE 1 po TID PRN Pain INDOMETHACIN 08078744751 Active Tu Landeros MD Active PROMETHAZINE-CODEINE 6.25-10 MG/5ML ORAL SYRUP 5ml po q6hr PRN Cough PROMETHAZINE-CODEINE 24518119165 No Longer Active Tu Landeros MD Active AZITHROMYCIN 250 MG ORAL TABLET 2 po qd x 1, then 1 po qd x 4 AZITHROMYCIN 74574691228 No Longer Active Tu Landeros MD Active GUAIFENESIN ER 600 MG ORAL TABLET EXTENDED RELEASE 12 HOUR 1 twice a day as needed for congestion GUAIFENESIN 41454120938 No Longer Active Tu Landeros MD Active PREDNISONE 20 MG ORAL TABLET 2 po qd x 5 days PREDNISONE 45360205458 No Longer Active Tu Landeros MD Active FLUTICASONE PROPIONATE 50 MCG/ACT NASAL SUSPENSION 2 sprays/nostril qd PRN Congestion/Allergies FLUTICASONE PROPIONATE 05550221226 Active Tu Landeros MD Active NASONEX 50 MCG/ACT NASAL SUSPENSION 2 actuations in each nostril q day 07/15 MOMETASONE FUROATE 85446425608 No Longer Active Tu Landeros MD Active MAGNESIUM OXIDE 400 MG ORAL TABLET 1 po BID MAGNESIUM OXIDE 51142795843 Active Tu Landeros MD Active SIMVASTATIN 20 MG ORAL TABLET 0.5 po qHS SIMVASTATIN 48365193194 Active Tu Landeros MD Active DICLOFENAC SODIUM 75 MG ORAL TABLET DELAYED RELEASE 1 po BID PRN Pain DICLOFENAC SODIUM 17335071387 No Longer Active Tu Landeros MD Active GABAPENTIN 100 MG ORAL CAPSULE 1 po TID GABAPENTIN 43913080101 Active Tu Landeros MD Active DICLOFENAC SODIUM 50 MG ORAL TABLET DELAYED RELEASE 1 po BID PRN Pain DICLOFENAC SODIUM 96025500350 No Longer Active Tu Landeros MD Active CYCLOBENZAPRINE HCL 10 MG ORAL TABLET 1 po TID PRN Muscle Spasm CYCLOBENZAPRINE HCL 47040846086 No Longer Active Tu Landeros MD Active INVOKANA 100 MG ORAL TABLET 1 po qd CANAGLIFLOZIN 51986087950 Active José Luis Becerra MD Active GLIPIZIDE 5 MG ORAL TABLET 1 po qd GLIPIZIDE 14336073562 No Longer Active Tu Landeros MD Active VENLAFAXINE HCL 75 MG ORAL TABLET 1 po BID VENLAFAXINE HCL 06133011209 Active Tu Landeros MD Active GLIMEPIRIDE 1 MG ORAL TABLET 1 po qd GLIMEPIRIDE 77056297689 No Longer Active Tu Landeros MD Active TRUE METRIX BLOOD GLUCOSE TEST IN VITRO STRIP Test blood sugar BID Dx: E11.9 GLUCOSE BLOOD 55162825990 Active Tu Landeros MD Active TRUE METRIX AIR GLUCOSE METER w/Device KIT Test blood glucose BID Dx: E11.9 BLOOD GLUCOSE MONITORING SUPPL 39298891782 Active Tu Landeros MD Active TRUETEST TEST IN VITRO STRIP test blood sugar twice daily. DX 250.0 GLUCOSE BLOOD 77677973142 No Longer Active Mirna Stanley LPN Active TRUEDRAW LANCING DEVICE test blood sugar twice daily dx: 250.00 LANCET DEVICES 31685087070 No Longer Active Mirna Stanley LPN Active ENALAPRIL MALEATE 20 MG ORAL TABLET 2 po qd ENALAPRIL MALEATE 59248455944 Active Tu Landeros MD Active SUPER B COMPLEX/VITAMIN C ORAL TABLET 1 qd B COMPLEX- C 35274798471 No Longer Active Tu Landeros MD Active ASPIRIN EC 81 MG ORAL TABLET DELAYED RELEASE 1 po qd ASPIRIN 99653577503 Active Tu Landeros MD Active GLUCOSAMINE 500 MG TABS 2 po qd GLUCOSAMINE Active Tu Landeros MD Active FISH OIL 1000 MG ORAL CAPSULE 1 po qd OMEGA-3 FATTY ACIDS 95027408867 Active Tu Landeros MD Active METFORMIN HCL 1000 MG ORAL TABLET 1 po BID METFORMIN HCL 53185635630 Active Tu Landeros MD Active KLOR-CON 10 10 MEQ ORAL TABLET EXTENDED RELEASE 2 po qd POTASSIUM CHLORIDE 85840480392 Active Tu Landeros MD Active FUROSEMIDE 40 MG ORAL TABLET 1 po qd FUROSEMIDE 27022037643 Active Tu Landeros MD Active REQUIP 2 MG ORAL TABLET 1 po qHS PRN Restless legs ROPINIROLE HCL 82269511930 Active Tu Landeros MD Active REQUIP 2 MG ORAL TABLET Take one tablet at bedtime prn ROPINIROLE HCL 82775898650 No Longer Active Tu Landeros MD Active VENTOLIN HFA 108 (90 Base) MCG/ACT INHALATION AEROSOL SOLUTION 1-2 puffs every 4 hours if needed for cough/congestion ALBUTEROL SULFATE 95259235463 No Longer Active Ambika Aden APRN Active ZITHROMAX 250 MG ORAL TABLET 2 po today, then 1 po q days 2-5 AZITHROMYCIN 77034403839 No Longer Active Miranda Farah APRN Active FLONASE 50 MCG/ACT NASAL SUSPENSION 1 spray each nostril twice daily until bottle empty FLUTICASONE PROPIONATE 29039549751 No Longer Active Tu Landeros MD Active COLACE 100 MG ORAL CAPSULE 1 po BID PRN Constipation DOCUSATE SODIUM 35035736108 Active Tu Landeros MD Active TRUERESULT BLOOD GLUCOSE w/Device KIT test blood sugar twice daily dx 250.00 BLOOD GLUCOSE MONITORING SUPPL 14321839688 No Longer Active Tu Landeros MD Active TRUEDRAW LANCING DEVICE Test twice a day dx 250.0 LANCET DEVICES 94857234446 No Longer Active Tu Landeros MD Active PREDNISONE 20 MG ORAL TABLET 2 tablets once daily for 2 days, then 1 tablet once daily for 2 days PREDNISONE 33628317694 No Longer Active Tu Landeros MD Active DICLOFENAC SODIUM 50 MG ORAL TABLET DELAYED RELEASE 1 tablet by mouth three times a day as needed DICLOFENAC SODIUM 96228592972 No Longer Active Fab Morales DO Active EMBRACE BLOOD GLUCOSE TEST IN VITRO STRIP test blood sugar twice daily DX 250.0 GLUCOSE BLOOD 05192668026 No Longer Active Tu Landeros MD Active TRUETEST TEST IN VITRO STRIP test blood sugar three times daily dx: 250.00 GLUCOSE BLOOD 43643422233 No Longer Active Suze VOGEL Active TRUERESULT BLOOD GLUCOSE w/Device KIT use to test blood sugar tid dx: 250.00 BLOOD GLUCOSE MONITORING SUPPL 85569146704 No Longer Active Suzebianca VOGEL Active ALIGN 4 MG ORAL CAPSULE 1 tid PROBIOTIC PRODUCT 85425081236 No Longer Active Shaun Sy MD Active CIPRO 500 MG ORAL TABLET 1 bid x 14 days start 09-28-13 CIPROFLOXACIN HCL 60886825611 No Longer Active Shaun Sy MD Active TRAMADOL HCL 50 MG ORAL TABLET 1-2 tablets every 6 hours as needed for pain TRAMADOL HCL 38793903641 Active Tu Landeros MD Active HYDROCODONE-ACETAMINOPHEN 5-325 MG ORAL TABLET 1 tab by mouth every 6 hours as needed for pain HYDROCODONE-ACETAMINOPHEN 79336710141 No Longer Active Tu Landeros MD Active OMEPRAZOLE 20 MG ORAL CAPSULE DELAYED RELEASE 1 po q a.m. OMEPRAZOLE 45460043880 Active Tu Landeros MD Active GABAPENTIN 100 MG ORAL CAPSULE 1 po bid GABAPENTIN 99759000047 No Longer Active Tu Landeros MD Active B-12 100 MCG ORAL TABLET Take one by mouth daily CYANOCOBALAMIN 25308480299 No Longer Active Tu Landeros MD Active BACTRIM DS 800-160 MG ORAL TABLET 1 bid x 14 day start 09-28-13 SULFAMETHOXAZOLE-TRIMETHOPRIM 67705597950 No Longer Active Tu Landeros MD Active CARVEDILOL 12.5 MG ORAL TABLET 1 po BID CARVEDILOL 97423025360 Active Tu Landeros MD Active FENOFIBRATE 145 MG ORAL TABLET 1 po qd FENOFIBRATE 96489046852 No Longer Active JASPREET Perez Active OMEPRAZOLE 20 MG ORAL TABLET DELAYED RELEASE 1 PO 30 MIN BEFORE 1ST MEAL 2010 OMEPRAZOLE 79111661286 No Longer Active JASPREET Perez Active SIMVASTATIN 40 MG ORAL TABLET Take one by mouth daily SIMVASTATIN 20349951365 No Longer Active JASPREET Perez Active VENLAFAXINE HCL 75 MG ORAL TABLET 1 po BID VENLAFAXINE HCL 47429927872 No Longer Active JASPREET Perez Active CIPRO 500 MG ORAL TABLET 1 tablet by mouth twice daily CIPROFLOXACIN HCL 61060305257 No Longer Active Tu Landeros MD Active VENLAFAXINE HCL 37.5 MG ORAL TABLET 1 po BID VENLAFAXINE HCL 54896493379 No Longer Active Suze NUNOA Active LAMISIL 250 MG ORAL TABLET 1 po qd TERBINAFINE HCL 18449957640 No Longer Active Tu Landeros MD Active LORTAB 5-500 MG ORAL TABLET 1/2 to 1 tablet by mouth every 4 hours as needed for pain HYDROCODONE-ACETAMINOPHEN 72295245848 No Longer Active Tu Landeros MD Active HYDROCODONE-ACETAMINOPHEN 5-500 MG ORAL TABLET take one po Q 4-6 hours prn HYDROCODONE-ACETAMINOPHEN 77654561501 No Longer Active Tu Landeros MD Active BACTRIM DS 800-160 MG ORAL TABLET 1 po BID x 7 days SULFAMETHOXAZOLE-TRIMETHOPRIM 46720889309 No Longer Active Tu Landeros MD Active VENLAFAXINE HCL 75 MG ORAL TABLET 1 po BID VENLAFAXINE HCL 20378048427 No Longer Active Elvira Cervantes MD PhD Active TRAMADOL HCL 50 MG ORAL TABLET 1 tablets every 6 hours as needed for pain TRAMADOL HCL 62428323984 No Longer Active Tu Landeros MD Active ACCU-CHEDawson FASTCLIX LANCETS Use to check bloodsugar three times daily as needed LANCETS 00266076482 No Longer Active Tu Landeros MD Active ACCU-CHEDawson KEYONA PLUS IN VITRO STRIP Use for testing bloodsugars three times daily as needed GLUCOSE BLOOD 37897088907 No Longer Active Tu Landeros MD Active ACCU-CHEK KEYONA PLUS w/Device KIT Use for testing bloodsugars three times daily as needed BLOOD GLUCOSE MONITORING SUPPL 37783463767 No Longer Active Tu Landeros MD Active SPIRONOLACTONE 25 MG ORAL TABLET 0.5 tablet by mouth daily 09/09 SPIRONOLACTONE 76345715771 No Longer Active Tu Landeros MD Active ALPRAZOLAM 0.5 MG ORAL TABLET 1 tab every 6hrs as needed ALPRAZOLAM 60417660873 No Longer Active Tu Landeros MD Active AUGMENTIN 875-125 MG ORAL TABLET 1 tab by mouth twice daily with food AMOXICILLIN-POT CLAVULANATE 62801509609 No Longer Active Tu Landeros MD Active PREDNISONE 20 MG ORAL TABLET 2 tabs daily for 3 days, 1 tab daily for 3 days, 1/2 tab daily for 2 days PREDNISONE 41192817561 No Longer Active Tu Landeros MD Active XANAX 0.5 MG ORAL TABLET 1 tablet every 6 hrs prn ALPRAZOLAM 44190202404 No Longer Active Tu Landeros MD Active PREDNISONE 20 MG ORAL TABLET 2 tabs daily for 3 days, 1 tab daily for 3 days, 1/2 tab daily for 2 days PREDNISONE 63787683755 No Longer Active Tu Landeros MD Active TRIAMCINOLONE ACETONIDE 0.1 % EXTERNAL OINTMENT Apply to affected areas TID for up to 2 weeks TRIAMCINOLONE ACETONIDE 37265135236 No Longer Active Tu Landeros MD Active LORTAB 5-500 MG ORAL TABLET 1/2 to 1 tablet by mouth every 4 hours as needed for pain HYDROCODONE-ACETAMINOPHEN 16712862313 No Longer Active Tu Landeros MD Active MULTIVITAMINS TABS Take one by mouth daily MULTIPLE VITAMIN 88507681470 No Longer Active Tu Landeros MD Active MELATONIN 5 MG ORAL TABLET Take one by mouth daily MELATONIN 53513990894 No Longer Active Tu Landeros MD Active SOMA 350 MG ORAL TABLET 1 po q 6 hours prn spasm CARISOPRODOL 67346501595 No Longer Active Tu Landeros MD Active MECLIZINE HCL 25 MG ORAL TABLET CHEWABLE 1 four times a day as needed for dizziness MECLIZINE HCL 22524474271 No Longer Active Fab Morales DO Active ANGEL BREEZE 2 TEST IN VITRO DISK test tid prn GLUCOSE BLOOD 36353699435 No Longer Active Negra Scott RN Active REGLAN 10 MG ORAL TABLET 1 po TID PRN Nausea METOCLOPRAMIDE HCL 81012425739 No Longer Active Tu Landeros MD Active METFORMIN HCL 500 MG ORAL TABLET 1 PO BID METFORMIN HCL 78426973432 No Longer Active Tu Landeros MD Active AMBIEN 10 MG ORAL TABLET 1 tab by mouth at bedtime as needed for sleep 06/10 ZOLPIDEM TARTRATE 47176947869 No Longer Active Tu Landeros MD Active FLUOXETINE HCL 40 MG ORAL CAPSULE 1 po q day FLUOXETINE HCL 98412337787 No Longer Active Mayra Marshallberg Active TRILIPIX 135 MG ORAL CAPSULE DELAYED RELEASE 1 po qd CHOLINE FENOFIBRATE 31535891894 No Longer Active Tu Landeros MD Active AMBIEN 10 MG ORAL TABLET 1 tab by mouth at bedtime as needed for sleep 06/10 AMBIEN 10 MG ORAL TABLET 031864 ZOLPIDEM TARTRATE Inactive METFORMIN HCL 500 MG ORAL TABLET 1 PO BID METFORMIN HCL 500 MG ORAL TABLET 475530 METFORMIN HCL Inactive REGLAN 10 MG ORAL TABLET 1 po TID PRN Nausea REGLAN 10 MG ORAL TABLET 031160 METOCLOPRAMIDE HCL Inactive MECLIZINE HCL 25 MG ORAL TABLET CHEWABLE 1 four times a day as needed for dizziness MECLIZINE HCL 25 MG ORAL TABLET CHEWABLE 800638 MECLIZINE HCL Inactive SOMA 350 MG ORAL TABLET 1 po q 6 hours prn spasm SOMA 350 MG ORAL TABLET 684389 CARISOPRODOL Inactive MELATONIN 5 MG ORAL TABLET Take one by mouth daily MELATONIN 5 MG ORAL TABLET 126432 MELATONIN Inactive MULTIVITAMINS TABS Take one by mouth daily MULTIVITAMINS TABS MULTIPLE VITAMIN Inactive LORTAB 5-500 MG ORAL TABLET 1/2 to 1 tablet by mouth every 4 hours as needed for pain LORTAB 5-500 MG ORAL TABLET HYDROCODONE- ACETAMINOPHEN Inactive XANAX 0.5 MG ORAL TABLET 1 tablet every 6 hrs prn XANAX 0.5 MG ORAL TABLET 627451 ALPRAZOLAM Inactive AUGMENTIN 875-125 MG ORAL TABLET 1 tab by mouth twice daily with food AUGMENTIN 875-125 MG ORAL TABLET 250772 AMOXICILLIN-POT CLAVULANATE Inactive ALPRAZOLAM 0.5 MG ORAL TABLET 1 tab every 6hrs as needed ALPRAZOLAM 0.5 MG ORAL TABLET 849142 ALPRAZOLAM Inactive SPIRONOLACTONE 25 MG ORAL TABLET 0.5 tablet by mouth daily 09/09 SPIRONOLACTONE 25 MG ORAL TABLET 323770 SPIRONOLACTONE Inactive ACCU-CHEK KEYONA PLUS w/Device KIT [...] times daily as needed ACCU-CHEK FASTCLIX LANCETS 12344463945 LANCETS Inactive TRAMADOL HCL 50 MG ORAL TABLET 1 tablets every 6 hours as needed for pain TRAMADOL HCL 50 MG ORAL TABLET 842860 TRAMADOL HCL Inactive VENLAFAXINE HCL 75 MG ORAL TABLET 1 po BID VENLAFAXINE HCL 75 MG ORAL TABLET 310602 VENLAFAXINE HCL Inactive HYDROCODONE-ACETAMINOPHEN 5-500 MG ORAL TABLET take one po Q 4-6 hours prn HYDROCODONE-ACETAMINOPHEN 5-500 MG ORAL TABLET HYDROCODONE-ACETAMINOPHEN Inactive LORTAB 5-500 MG ORAL TABLET 1/2 to 1 tablet by mouth every 4 hours as needed for pain LORTAB 5-500 MG ORAL TABLET HYDROCODONE- ACETAMINOPHEN Inactive LAMISIL 250 MG ORAL TABLET 1 po qd LAMISIL 250 MG ORAL TABLET 265201 TERBINAFINE HCL Inactive VENLAFAXINE HCL 37.5 MG ORAL TABLET 1 po BID VENLAFAXINE HCL 37.5 MG ORAL TABLET 895142 VENLAFAXINE HCL Inactive CIPRO 500 MG ORAL TABLET 1 tablet by mouth twice daily CIPRO 500 MG ORAL TABLET 099898 CIPROFLOXACIN HCL Inactive VENLAFAXINE HCL 75 MG ORAL TABLET 1 po BID VENLAFAXINE HCL 75 MG ORAL TABLET 116330 VENLAFAXINE HCL Inactive SIMVASTATIN 40 MG ORAL TABLET Take one by mouth daily SIMVASTATIN 40 MG ORAL TABLET 203485 SIMVASTATIN Inactive OMEPRAZOLE 20 MG ORAL TABLET DELAYED RELEASE 1 PO 30 MIN BEFORE 1ST MEAL 2010 OMEPRAZOLE 20 MG ORAL TABLET DELAYED RELEASE 319093 OMEPRAZOLE Inactive FENOFIBRATE 145 MG ORAL TABLET 1 po qd FENOFIBRATE 145 MG ORAL TABLET 706857 FENOFIBRATE Inactive BACTRIM DS 800-160 MG ORAL TABLET 1 bid x 14 day start 09-28-13 BACTRIM DS 800-160 MG ORAL TABLET 226202 SULFAMETHOXAZOLE- TRIMETHOPRIM Inactive B-12 100 MCG ORAL TABLET Take one by mouth daily B-12 100 MCG ORAL TABLET CYANOCOBALAMIN Inactive GABAPENTIN 100 MG ORAL CAPSULE 1 po bid GABAPENTIN 100 MG ORAL CAPSULE 365420 GABAPENTIN Inactive HYDROCODONE-ACETAMINOPHEN 5-325 MG ORAL TABLET 1 tab by mouth every 6 hours as needed for pain HYDROCODONE-ACETAMINOPHEN 5-325 MG ORAL TABLET 924202 HYDROCODONE-ACETAMINOPHEN Inactive CIPRO 500 MG ORAL TABLET 1 bid x 14 days start 814 CIPRO 500 MG ORAL TABLET 475109 CIPROFLOXACIN HCL Inactive ALIGN 4 MG ORAL [...] SODIUM 50 MG ORAL TABLET DELAYED RELEASE 771929 DICLOFENAC SODIUM Inactive PREDNISONE 20 MG ORAL TABLET 2 tablets once daily for 2 days, then 1 tablet once daily for 2 days PREDNISONE 20 MG ORAL TABLET 231118 PREDNISONE Inactive TRUEDRAW LANCING DEVICE Test twice a day dx 250.0 TRUEDRAW LANCING DEVICE LANCET DEVICES Inactive TRUERESULT BLOOD GLUCOSE w/Device KIT test blood sugar twice daily dx 250.00 TRUERESULT BLOOD GLUCOSE w/Device KIT BLOOD GLUCOSE MONITORING SUPPL Inactive FLONASE 50 MCG/ACT NASAL SUSPENSION 1 spray each nostril twice daily until bottle empty FLONASE 50 MCG/ACT NASAL SUSPENSION 5059840 FLUTICASONE PROPIONATE Inactive VENTOLIN HFA 108 (90 Base) MCG/ACT INHALATION AEROSOL SOLUTION 1-2 puffs every 4 hours if needed for cough/congestion VENTOLIN HFA 108 (90 Base) MCG/ACT INHALATION AEROSOL SOLUTION ALBUTEROL SULFATE Inactive REQUIP 2 MG ORAL TABLET Take one tablet at bedtime prn REQUIP 2 MG ORAL TABLET 978750 ROPINIROLE HCL Inactive SUPER B COMPLEX/VITAMIN C ORAL TABLET 1 qd SUPER B COMPLEX/VITAMIN C ORAL TABLET 18952421433 B COMPLEX-C Inactive TRUEDRAW LANCING DEVICE test blood sugar twice daily dx: 250.00 TRUEDRAW LANCING DEVICE LANCET DEVICES Inactive TRUETEST TEST IN VITRO STRIP test blood sugar twice daily. DX 250.0 TRUETEST TEST IN VITRO STRIP GLUCOSE BLOOD Inactive CYCLOBENZAPRINE HCL 10 MG ORAL TABLET 1 po TID PRN Muscle Spasm CYCLOBENZAPRINE HCL 10 MG ORAL TABLET 049487 CYCLOBENZAPRINE HCL Inactive DICLOFENAC SODIUM 50 MG ORAL TABLET DELAYED RELEASE 1 po BID PRN Pain DICLOFENAC SODIUM 50 MG ORAL TABLET DELAYED RELEASE 624561 DICLOFENAC SODIUM Inactive DICLOFENAC SODIUM 75 MG ORAL TABLET DELAYED RELEASE 1 po BID PRN Pain DICLOFENAC SODIUM 75 MG ORAL TABLET DELAYED RELEASE 532898 DICLOFENAC SODIUM Inactive NASONEX 50 MCG/ACT NASAL SUSPENSION 2 actuations in each nostril q day 07/15 NASONEX 50 MCG/ACT NASAL SUSPENSION 2296346 MOMETASONE FUROATE Inactive GUAIFENESIN ER 600 MG ORAL TABLET EXTENDED RELEASE 12 HOUR 1 twice a day as needed for congestion GUAIFENESIN ER 600 MG ORAL TABLET EXTENDED RELEASE 12 HOUR GUAIFENESIN Inactive AZITHROMYCIN 250 MG ORAL TABLET 2 po qd x 1, then 1 po qd x 4 AZITHROMYCIN 250 MG ORAL TABLET 404936 AZITHROMYCIN Inactive PROMETHAZINE-CODEINE 6.25-10 MG/5ML ORAL SYRUP 5ml po q6hr PRN Cough PROMETHAZINE-CODEINE 6.25-10 MG/5ML ORAL SYRUP 330910 PROMETHAZINE-CODEINE Inactive TRILIPIX 135 MG ORAL CAPSULE DELAYED RELEASE 1 q hs TRILIPIX 135 MG ORAL CAPSULE DELAYED RELEASE 605498 CHOLINE FENOFIBRATE Inactive TRIAMCINOLONE ACETONIDE 0.1 % EXTERNAL OINTMENT Apply to affected areas TID for up to 2 weeks TRIAMCINOLONE ACETONIDE 0.1 % EXTERNAL OINTMENT 9857905 TRIAMCINOLONE ACETONIDE Inactive PREDNISONE 20 MG ORAL TABLET 2 tabs daily for 3 days, 1 tab daily for 3 days, 1/2 tab daily for 2 days PREDNISONE 20 MG ORAL TABLET 436674 PREDNISONE Inactive PREDNISONE 20 MG ORAL TABLET 2 tabs daily for 3 days, 1 tab daily for 3 days, 1/2 tab daily for 2 days PREDNISONE 20 MG ORAL TABLET 427193 PREDNISONE Inactive BACTRIM DS 800-160 MG ORAL TABLET 1 po BID x 7 days BACTRIM DS 800-160 MG ORAL TABLET 550728 SULFAMETHOXAZOLE-TRIMETHOPRIM Inactive ZITHROMAX 250 MG ORAL TABLET 2 po today, then 1 po q days 2-5 ZITHROMAX 250 MG ORAL TABLET 240909 AZITHROMYCIN Inactive PREDNISONE 20 MG ORAL TABLET 2 po qd x 5 days PREDNISONE 20 MG ORAL TABLET 277003 PREDNISONE Inactive Advance Directives Directive Description Start Date DISCUSSED WITH PATIENT -- NO DECISION MADE Immunizations Vaccine Administration Date Value Standard Description Seasonal influenza vaccine, injectable, containing preservative, for > 3 years old (Afluria, FluLaval, Fluzone, Fluvirin, Fluarix, Agriflu(>=18 yo)) Fluzone (>3 yrs.) [[id number]] Influenza, seasonal, injectable influenza immunization (Flu Vax) has been administered 02/22/2012 influenza virus vaccine, unspecified formulation Seasonal influenza vaccine, injectable, containing preservative, for > 3 years old (Afluria, FluLaval, Fluzone, Fluvirin, Fluarix, Agriflu(>=18 yo)) Fluzone (>3 yrs.) [[id number]] Influenza, seasonal, injectable Vital Signs Date Name [...] ... - Chemistry sodium, serum 141 mmol/L 986-329 8458/01/16 carbon dioxide, venous blood 28.3 mmol/L 21.0-32.0 [...] 6.7 % 4.3-6.0 cholesterol, serum 106 mg/dL 172-761 0291/01/16 triglyceride, serum, fasting 173 mg/dL 30-200 HDL [...] Magnesium - Chemistry sodium, serum 142 mmol/L 077-260 6360/07/16 carbon dioxide, venous blood 29.4 mmol/L 21.0-32.0 [...] Panel - Chemistry cholesterol, serum 170 mg/dL 617-904 0406/07/16 triglyceride, serum, fasting 266 mg/dL 30-200 HDL cholesterol, serum 42 mg/dL 32-60 LDL cholesterol, serum 75 mg/dL 0-130 Encounters Code Encounter Date Provider Facility CPT-20573 Level 4 Est. Patient 14:46:36 CDT Tu Landeros MD [facility] CPT-15535 Level 3 Est. Patient 10:28:05 CDT Tu Landeros MD [facility] CPT-82468 Level 3 Est. Patient 09:11:32 CDT Tu Landeros MD [facility] CPT-68322 Level 3 Est. Patient 10:13:19 ENGINEER STEAM Lesli Kellogg [facility] CPT-67300 Level 4 Est. Patient 13:42:02 ENGINEER STEAM Tu Landeros MD [facility] CPT-17308 Level 3 Est. Patient 14:20:36 CDT Tu Landeros MD [facility] CPT-24802 Level 4 Est. Patient 14:28:34 CDT Tu Landeros MD [facility] CPT-57441 Level 3 Est. Patient 13:33:09 CDT Tu Landeros MD [facility] CPT-48077 Level 4 Est. Patient 14:29:21 CDT Tu Landeros MD [facility] CPT-75529 Level 4 Est. Patient 09:08:17 ENGINEER STEAM Tu Landeros MD [facility] CPT-38312 Level 4 Est. Patient 14:40:19 CDT Tu Landeros MD [facility] CPT-39924 Level 4 Est. Patient 14:06:04 ENGINEER STEAM Tu Landeros MD [facility] CPT-02045 Level 3 Est. Patient 14:05:18 ENGINEER STEAM Tu Landeros MD [facility] CPT-04716 Level 3 Est. Patient 10:06:54 ENGINEER STEAM Miranda Farah STAVE LOG RIPSAW OPERATOR [facility] CPT-95079 Level 4 Est. Patient 13:50:18 ENGINEER STEAM Tu Landeros MD [facility] CPT-98539 Level 3 Est. Patient 10:30:04 CDT Tu Landeros MD [facility] CPT-74801 Level 4 Est. Patient 11:03:38 CDT Tu Landeros MD [facility] CPT-17781 Level 3 Est. Patient 10:20:44 CDT Fab Morales DO [facility] CPT-38725 Level 4 Est. Patient 14:38:57 CDT Tu Landeros MD [facility] CPT-18603 Level 4 Est. Patient 14:27:39 ENGINEER STEAM Tu Landeros MD [facility] CPT-18678 Level 4 Est. Patient 09:45:25 CDT Tu Landeros MD [facility] CPT-03272 Level 4 Est. Patient 09:05:20 ENGINEER STEAM Tu Landeros MD [facility] CPT-63930 Level 4 Est. Patient 14:09:06 CDT Tu Landeros MD [facility] CPT-28657 Level 3 Est. Patient 13:36:54 CDT Tu Landeros MD [facility] CPT-50403 Level 3 Est. Patient 08:59:14 CDT Tu Landeros MD [facility] CPT-98482 Level 3 Est. Patient 13:48:35 CDT Fab Morales DO [facility] CPT-01738 Level 4 Est. Patient 10:05:48 CDT Tu Landeros MD [facility] CPT-12965 Level 3 Est. Patient 13:38:42 CDT Marek BANKS [facility] CPT-38651 Level 5 Est. Patient 08:08:39 CDT Jerrica FRANCIS [facility] CPT-89154 Level 4 Est. Patient 14:23:38 CDT Tu Landeros MD [facility] CPT-17591 Level 3 Est. Patient 11:44:04 CDT Tu Landeros MD [facility] CPT-04585 Level 3 Est. Patient 11:03:20 ENGINEER STEAM Tu Landeros MD [facility] CPT-33254 Level 3 Est. Patient 11:03:14 ENGINEER STEAM Tu Landeros MD [facility] CPT-60871 Level 3 Est. Patient 12:42:49 CDT Tu Landeros MD [facility] CPT-66281 Level 3 Est. Patient 11:52:06 CDT Tu Landeros MD [facility] CPT-01983 Level 3 Est. Patient 13:58:11 CDT Tu Landeros MD [facility] CPT-46017 Level 3 Est. Patient 17:50:07 CDT Fab Morales DO [facility] CPT-53969 Level 3 Est. Patient 12:06:29 CDT Elvira Cervantes MD PhD [facility] CPT-27256 Level 3 Est. Patient 15:50:32 CDT Tu Landeros MD [facility] CPT-69413 Level 4 Est. Patient 16:08:29 CDT Tu Landeros MD [facility] CPT-91140 Level 3 Est. Patient 16:04:19 CDT Tu Landeros MD [facility] CPT-42049 Level 3 Est. Patient 11:22:30 ENGINEER STEAM Tu Landeros MD [facility] CPT-31769 Level 4 Est. Patient 16:24:02 ENGINEER STEAM Tu Landeros MD [facility] CPT-42722 Level 3 Est. Patient 17:21:23 ENGINEER STEAM Tu Landeros MD [facility] Procedures Code Procedure Name Date Entry Date Standard Description CPT-G0439 [facility] Annual Wellness Exam 14:46:36 CDT CPT-13462 Shoulder, right, comp min 2V - XRAY USE ONLY 13:50:22 CDT CPT-G0009 Administration of Pneumococcal Vaccine 15:08:26 CDT CPT-57873 Prevnar 13 Intramuscular Suspension 15:08:26 CDT 10/08 CPT-G0439 Subsequent Annual Wellness Exam 14:29:22 CDT CPT-18969 Venipuncture Draw Fee 13:15:35 CDT CPT-52379 Magnesium - LAB USE ONLY 11:14:20 [employer]INE[employer] CPT-79325 Lipid - LAB USE ONLY 11:14:20 [employer]INEER [employer] CPT-59530 HGBA1C - LAB USE ONLY 11:14:20 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 [employer] CPT-28292 CMP - LAB USE ONLY 11:14:19 [employer]INEER [employer] CPT-96679 CBC - LAB USE ONLY 11:14:19 [employer]INEER [employer] CPT-89022 Venipuncture Draw Fee 11:14:18 [employer]INEER [employer] CPT-20280 First Vx - Ix admin for Medicare patients 16:46:52 CDT CPT-38844 Fluzone Preservative Free Intramuscular Suspension 16:46 :51 CDT CPT-60548 CBC - LAB USE ONLY 17:14:46 CDT CPT-04963 HGBA1C - LAB USE ONLY 17:14:46 CDT CPT-37468 Venipuncture Draw Fee 17:14:46 CDT CPT-G0438 Initial Annual Wellness Exam 14:13:04 CDT CPT-18022 Breathing Tx 10:06:54 [employer] CPT-89146 Postop F/U Visit 10:02:45 CDT CPT-LR Lesion Removal 09:02:56 CDT CPT-JTINJ Asp/Joint Injection 15:51:27 [employer]INEER [employer] CPT-OV Office Visit 15:52:02 [employer]INEER [employer] CPT-OV Office Visit 15:45:11 CDT CPT-000 Give Zostavax 14:09:06 CDT CPT-61718 Administration single or combination vaccine inc oral 15 :19:04 CDT CPT-10302 Zoster Vaccine (Zostavax) 15:19:04 CDT CPT-03246 Administration single or combination vaccine inc oral 20 :51:03 CDT CPT-31117 Influenza split virus > age 3 20:51:03 CDT CPT-83629 No Charge Offi Visit 14:52:03 CDT CPT-OV Office Visit 14:57:43 CDT CPT-OV Office Visit 15:22:32 CDT CPT-78271 Administration single or combination vaccine inc oral 11 :33:15 CDT CPT-57702 Influenza split virus > age 3 11:33:15 CDT
--- OUTSIDE RECORDS SUMMARY | 2018-04-25 11:47 | XMS REPORT | Clinical Summary ---
Author Author Admin, SACHI Organization [employer] Address Unknown Phone Unavailable Allergies, Adverse Reactions, [...] Esophageal reflux Restless leg syndrome 333.94 Active uT Landeros MD Restless legs syndrome (RLS) Open [...] magnesium metabolism URI 465.9 Inactive Lesli Kellogg CHAIN CARRIER Acute upper respiratory infections of unspecified site [...] 1 GM ORAL CAPSULE 1 po qd MWEHD-[id number] ETHYL ESTERS 70638142748 Active Tu Landeros MD Active TRILIPIX 135 MG ORAL CAPSULE DELAYED RELEASE 1 q hs CHOLINE FENOFIBRATE 40176837464 No Longer Active Cynthia NUNOA Active TRIAMCINOLONE ACETONIDE 0.1 % EXTERNAL CREAM Apply to affected area TID for up to 2 weeks TRIAMCINOLONE ACETONIDE 59131360580 Active Tu Landeros MD Active INDOMETHACIN 50 MG ORAL CAPSULE 1 po TID PRN Pain INDOMETHACIN 21692507496 Active Tu Landeros MD Active PROMETHAZINE-CODEINE 6.25-10 MG/5ML ORAL SYRUP 5ml po q6hr PRN Cough PROMETHAZINE-CODEINE 95802839689 No Longer Active Tu Landreos MD Active AZITHROMYCIN 250 MG ORAL TABLET 2 po qd x 1, then 1 po qd x 4 AZITHROMYCIN 60073303323 No Longer Active Tu Landeros MD Active GUAIFENESIN ER 600 MG ORAL TABLET EXTENDED RELEASE 12 HOUR 1 twice a day as needed for congestion GUAIFENESIN 00056462932 No Longer Active Tu Landeros MD Active PREDNISONE 20 MG ORAL TABLET 2 po qd x 5 days PREDNISONE 17426244153 No Longer Active Tu Landeros MD Active FLUTICASONE PROPIONATE 50 MCG/ACT NASAL SUSPENSION 2 sprays/nostril qd PRN Congestion/Allergies FLUTICASONE PROPIONATE 94894612593 Active Tu Landeros MD Active NASONEX 50 MCG/ACT NASAL SUSPENSION 2 actuations in each nostril q day 07/15 MOMETASONE FUROATE 17070877044 No Longer Active Tu Landeros MD Active MAGNESIUM OXIDE 400 MG ORAL TABLET 1 po BID MAGNESIUM OXIDE 34014775193 Active Tu Landeros MD Active SIMVASTATIN 20 MG ORAL TABLET 0.5 po qHS SIMVASTATIN 01298976087 Active Tu Landeros MD Active DICLOFENAC SODIUM 75 MG ORAL TABLET DELAYED RELEASE 1 po BID PRN Pain DICLOFENAC SODIUM 72457140444 No Longer Active Tu Landeros MD Active GABAPENTIN 100 MG ORAL CAPSULE 1 po TID GABAPENTIN 15703769863 Active Tu Landeros MD Active DICLOFENAC SODIUM 50 MG ORAL TABLET DELAYED RELEASE 1 po BID PRN Pain DICLOFENAC SODIUM 05115289156 No Longer Active Tu Landeros MD Active CYCLOBENZAPRINE HCL 10 MG ORAL TABLET 1 po TID PRN Muscle Spasm CYCLOBENZAPRINE HCL 47708469960 No Longer Active Tu Landeros MD Active INVOKANA 100 MG ORAL TABLET 1 po qd CANAGLIFLOZIN 51244160465 Active José Luis Becerra MD Active GLIPIZIDE 5 MG ORAL TABLET 1 po qd GLIPIZIDE 89742595627 No Longer Active Tu Landeros MD Active VENLAFAXINE HCL 75 MG ORAL TABLET 1 po BID VENLAFAXINE HCL 07504529986 Active Tu Landeros MD Active GLIMEPIRIDE 1 MG ORAL TABLET 1 po qd GLIMEPIRIDE 97395664217 No Longer Active Tu Landeros MD Active TRUE METRIX BLOOD GLUCOSE TEST IN VITRO STRIP Test blood sugar BID Dx: E11.9 GLUCOSE BLOOD 27996535644 Active Tu Landeros MD Active TRUE METRIX AIR GLUCOSE METER w/Device KIT Test blood glucose BID Dx: E11.9 BLOOD GLUCOSE MONITORING SUPPL 03977767946 Active Tu Landeros MD Active TRUETEST TEST IN VITRO STRIP test blood sugar twice daily. DX 250.0 GLUCOSE BLOOD 25951881546 No Longer Active Mirna Stanley LPN Active TRUEDRAW LANCING DEVICE test blood sugar twice daily dx: 250.00 LANCET DEVICES 15471527735 No Longer Active Mirna Stanley LPN Active ENALAPRIL MALEATE 20 MG ORAL TABLET 2 po qd ENALAPRIL MALEATE 00397982319 Active Tu Landeros MD Active SUPER B COMPLEX/VITAMIN C ORAL TABLET 1 qd B COMPLEX- C 38142698797 No Longer Active Tu Landeros MD Active ASPIRIN EC 81 MG ORAL TABLET DELAYED RELEASE 1 po qd ASPIRIN 87700006979 Active Tu Landeros MD Active GLUCOSAMINE 500 MG TABS 2 po qd GLUCOSAMINE Active Tu Landeros MD Active FISH OIL 1000 MG ORAL CAPSULE 1 po qd OMEGA-3 FATTY ACIDS 02605080481 Active Tu Landeros MD Active METFORMIN HCL 1000 MG ORAL TABLET 1 po BID METFORMIN HCL 35456661613 Active Tu Landeros MD Active KLOR-CON 10 10 MEQ ORAL TABLET EXTENDED RELEASE 2 po qd POTASSIUM CHLORIDE 44364774893 Active Tu Landeros MD Active FUROSEMIDE 40 MG ORAL TABLET 1 po qd FUROSEMIDE 08233213672 Active Tu Landeros MD Active REQUIP 2 MG ORAL TABLET 1 po qHS PRN Restless legs ROPINIROLE HCL 73517625999 Active Tu Landeros MD Active REQUIP 2 MG ORAL TABLET Take one tablet at bedtime prn ROPINIROLE HCL 79277077623 No Longer Active Tu Landeros MD Active VENTOLIN HFA 108 (90 Base) MCG/ACT INHALATION AEROSOL SOLUTION 1-2 puffs every 4 hours if needed for cough/congestion ALBUTEROL SULFATE 66534850382 No Longer Active Ambika Aden APRN Active ZITHROMAX 250 MG ORAL TABLET 2 po today, then 1 po q days 2-5 AZITHROMYCIN 70214104991 No Longer Active Miranda Farah APRN Active FLONASE 50 MCG/ACT NASAL SUSPENSION 1 spray each nostril twice daily until bottle empty FLUTICASONE PROPIONATE 89872783066 No Longer Active Tu Landeros MD Active COLACE 100 MG ORAL CAPSULE 1 po BID PRN Constipation DOCUSATE SODIUM 18845060591 Active Tu Landeros MD Active TRUERESULT BLOOD GLUCOSE w/Device KIT test blood sugar twice daily dx 250.00 BLOOD GLUCOSE MONITORING SUPPL 88615685803 No Longer Active Tu Landeros MD Active TRUEDRAW LANCING DEVICE Test twice a day dx 250.0 LANCET DEVICES 87562551885 No Longer Active Tu Landeros MD Active PREDNISONE 20 MG ORAL TABLET 2 tablets once daily for 2 days, then 1 tablet once daily for 2 days PREDNISONE 01038206921 No Longer Active Tu Landeros MD Active DICLOFENAC SODIUM 50 MG ORAL TABLET DELAYED RELEASE 1 tablet by mouth three times a day as needed DICLOFENAC SODIUM 97865449730 No Longer Active Fab Morales DO Active EMBRACE BLOOD GLUCOSE TEST IN VITRO STRIP test blood sugar twice daily DX 250.0 GLUCOSE BLOOD 50806649337 No Longer Active Tu Landeros MD Active TRUETEST TEST IN VITRO STRIP test blood sugar three times daily dx: 250.00 GLUCOSE BLOOD 16130126885 No Longer Active Suze VOGEL Active TRUERESULT BLOOD GLUCOSE w/Device KIT use to test blood sugar tid dx: 250.00 BLOOD GLUCOSE MONITORING SUPPL 15494701583 No Longer Active Suzebianca VOGEL Active ALIGN 4 MG ORAL CAPSULE 1 tid PROBIOTIC PRODUCT 90543110976 No Longer Active Shaun Sy MD Active CIPRO 500 MG ORAL TABLET 1 bid x 14 days start 09-28-13 CIPROFLOXACIN HCL 84349784154 No Longer Active Shaun Sy MD Active TRAMADOL HCL 50 MG ORAL TABLET 1-2 tablets every 6 hours as needed for pain TRAMADOL HCL 72854697873 Active Tu Landeros MD Active HYDROCODONE-ACETAMINOPHEN 5-325 MG ORAL TABLET 1 tab by mouth every 6 hours as needed for pain HYDROCODONE-ACETAMINOPHEN 64760731968 No Longer Active Tu Landeros MD Active OMEPRAZOLE 20 MG ORAL CAPSULE DELAYED RELEASE 1 po q a.m. OMEPRAZOLE 77621380455 Active Tu Landeros MD Active GABAPENTIN 100 MG ORAL CAPSULE 1 po bid GABAPENTIN 25885595646 No Longer Active Tu Landeros MD Active B-12 100 MCG ORAL TABLET Take one by mouth daily CYANOCOBALAMIN 20697747165 No Longer Active Tu Landeros MD Active BACTRIM DS 800-160 MG ORAL TABLET 1 bid x 14 day start 09-28-13 SULFAMETHOXAZOLE-TRIMETHOPRIM 38732515507 No Longer Active Tu Landeros MD Active CARVEDILOL 12.5 MG ORAL TABLET 1 po BID CARVEDILOL 99990323652 Active Tu Landeros MD Active FENOFIBRATE 145 MG ORAL TABLET 1 po qd FENOFIBRATE 27587005380 No Longer Active JASPREET Perez Active OMEPRAZOLE 20 MG ORAL TABLET DELAYED RELEASE 1 PO 30 MIN BEFORE 1ST MEAL 2010 OMEPRAZOLE 81153853540 No Longer Active JASPREET Perez Active SIMVASTATIN 40 MG ORAL TABLET Take one by mouth daily SIMVASTATIN 62920518020 No Longer Active JASPREET Perez Active VENLAFAXINE HCL 75 MG ORAL TABLET 1 po BID VENLAFAXINE HCL 52515028871 No Longer Active JASPREET Perez Active CIPRO 500 MG ORAL TABLET 1 tablet by mouth twice daily CIPROFLOXACIN HCL 39676101843 No Longer Active Tu Landeros MD Active VENLAFAXINE HCL 37.5 MG ORAL TABLET 1 po BID VENLAFAXINE HCL 63706498714 No Longer Active uSze NUNOA Active LAMISIL 250 MG ORAL TABLET 1 po qd TERBINAFINE HCL 93957299134 No Longer Active Tu Landeros MD Active LORTAB 5-500 MG ORAL TABLET 1/2 to 1 tablet by mouth every 4 hours as needed for pain HYDROCODONE-ACETAMINOPHEN 30838594890 No Longer Active Tu Landeros MD Active HYDROCODONE-ACETAMINOPHEN 5-500 MG ORAL TABLET take one po Q 4-6 hours prn HYDROCODONE-ACETAMINOPHEN 12059597630 No Longer Active Tu Landeros MD Active BACTRIM DS 800-160 MG ORAL TABLET 1 po BID x 7 days SULFAMETHOXAZOLE-TRIMETHOPRIM 66428661187 No Longer Active Tu Landeros MD Active VENLAFAXINE HCL 75 MG ORAL TABLET 1 po BID VENLAFAXINE HCL 80624379439 No Longer Active Elvira Cervantes MD PhD Active TRAMADOL HCL 50 MG ORAL TABLET 1 tablets every 6 hours as needed for pain TRAMADOL HCL 62354015579 No Longer Active Tu Landeros MD Active ACCU-CHEDawson FASTCLIX LANCETS Use to check bloodsugar three times daily as needed LANCETS 89670286646 No Longer Active Tu Landeros MD Active ACCU-CHEDawson KEYONA PLUS IN VITRO STRIP Use for testing bloodsugars three times daily as needed GLUCOSE BLOOD 81676087700 No Longer Active Tu Landeros MD Active ACCU-CHEK KEYONA PLUS w/Device KIT Use for testing bloodsugars three times daily as needed BLOOD GLUCOSE MONITORING SUPPL 00434603118 No Longer Active Tu Landeros MD Active SPIRONOLACTONE 25 MG ORAL TABLET 0.5 tablet by mouth daily 09/09 SPIRONOLACTONE 70232444520 No Longer Active Tu Landeros MD Active ALPRAZOLAM 0.5 MG ORAL TABLET 1 tab every 6hrs as needed ALPRAZOLAM 82224166354 No Longer Active Tu Landeros MD Active AUGMENTIN 875-125 MG ORAL TABLET 1 tab by mouth twice daily with food AMOXICILLIN-POT CLAVULANATE 87300581372 No Longer Active Tu Landeros MD Active PREDNISONE 20 MG ORAL TABLET 2 tabs daily for 3 days, 1 tab daily for 3 days, 1/2 tab daily for 2 days PREDNISONE 25967491074 No Longer Active Tu Landeros MD Active XANAX 0.5 MG ORAL TABLET 1 tablet every 6 hrs prn ALPRAZOLAM 01260697957 No Longer Active Tu Landeros MD Active PREDNISONE 20 MG ORAL TABLET 2 tabs daily for 3 days, 1 tab daily for 3 days, 1/2 tab daily for 2 days PREDNISONE 89586187112 No Longer Active Tu Landeros MD Active TRIAMCINOLONE ACETONIDE 0.1 % EXTERNAL OINTMENT Apply to affected areas TID for up to 2 weeks TRIAMCINOLONE ACETONIDE 22597943573 No Longer Active Tu Landeros MD Active LORTAB 5-500 MG ORAL TABLET 1/2 to 1 tablet by mouth every 4 hours as needed for pain HYDROCODONE-ACETAMINOPHEN 02866534451 No Longer Active Tu Landeros MD Active MULTIVITAMINS TABS Take one by mouth daily MULTIPLE VITAMIN 31145309458 No Longer Active Tu Landeros MD Active MELATONIN 5 MG ORAL TABLET Take one by mouth daily MELATONIN 16492561525 No Longer Active Tu Landeros MD Active SOMA 350 MG ORAL TABLET 1 po q 6 hours prn spasm CARISOPRODOL 13092846382 No Longer Active Tu Landeros MD Active MECLIZINE HCL 25 MG ORAL TABLET CHEWABLE 1 four times a day as needed for dizziness MECLIZINE HCL 81714886835 No Longer Active Fab Morales DO Active ANGEL BREEZE 2 TEST IN VITRO DISK test tid prn GLUCOSE BLOOD 18140802250 No Longer Active Negra Scott RN Active REGLAN 10 MG ORAL TABLET 1 po TID PRN Nausea METOCLOPRAMIDE HCL 63667346691 No Longer Active Tu Landeros MD Active METFORMIN HCL 500 MG ORAL TABLET 1 PO BID METFORMIN HCL 76124296011 No Longer Active Tu Landeros MD Active AMBIEN 10 MG ORAL TABLET 1 tab by mouth at bedtime as needed for sleep 06/10 ZOLPIDEM TARTRATE 48835123296 No Longer Active Tu Landeros MD Active FLUOXETINE HCL 40 MG ORAL CAPSULE 1 po q day FLUOXETINE HCL 94883072158 No Longer Active Mayra Chantilly Active TRILIPIX 135 MG ORAL CAPSULE DELAYED RELEASE 1 po qd CHOLINE FENOFIBRATE 44915194913 No Longer Active Tu Landeros MD Active AMBIEN 10 MG ORAL TABLET 1 tab by mouth at bedtime as needed for sleep 06/10 AMBIEN 10 MG ORAL TABLET 761455 ZOLPIDEM TARTRATE Inactive METFORMIN HCL 500 MG ORAL TABLET 1 PO BID METFORMIN HCL 500 MG ORAL TABLET 942038 METFORMIN HCL Inactive REGLAN 10 MG ORAL TABLET 1 po TID PRN Nausea REGLAN 10 MG ORAL TABLET 693798 METOCLOPRAMIDE HCL Inactive MECLIZINE HCL 25 MG ORAL TABLET CHEWABLE 1 four times a day as needed for dizziness MECLIZINE HCL 25 MG ORAL TABLET CHEWABLE 710064 MECLIZINE HCL Inactive SOMA 350 MG ORAL TABLET 1 po q 6 hours prn spasm SOMA 350 MG ORAL TABLET 547848 CARISOPRODOL Inactive MELATONIN 5 MG ORAL TABLET Take one by mouth daily MELATONIN 5 MG ORAL TABLET 665105 MELATONIN Inactive MULTIVITAMINS TABS Take one by mouth daily MULTIVITAMINS TABS MULTIPLE VITAMIN Inactive LORTAB 5-500 MG ORAL TABLET 1/2 to 1 tablet by mouth every 4 hours as needed for pain LORTAB 5-500 MG ORAL TABLET HYDROCODONE- ACETAMINOPHEN Inactive XANAX 0.5 MG ORAL TABLET 1 tablet every 6 hrs prn XANAX 0.5 MG ORAL TABLET 148383 ALPRAZOLAM Inactive AUGMENTIN 875-125 MG ORAL TABLET 1 tab by mouth twice daily with food AUGMENTIN 875-125 MG ORAL TABLET 942007 AMOXICILLIN-POT CLAVULANATE Inactive ALPRAZOLAM 0.5 MG ORAL TABLET 1 tab every 6hrs as needed ALPRAZOLAM 0.5 MG ORAL TABLET 866169 ALPRAZOLAM Inactive SPIRONOLACTONE 25 MG ORAL TABLET 0.5 tablet by mouth daily 09/09 SPIRONOLACTONE 25 MG ORAL TABLET 688525 SPIRONOLACTONE Inactive ACCU-CHEK KEYONA PLUS w/Device KIT [...] times daily as needed ACCU-CHEK FASTCLIX LANCETS 45849616320 LANCETS Inactive TRAMADOL HCL 50 MG ORAL TABLET 1 tablets every 6 hours as needed for pain TRAMADOL HCL 50 MG ORAL TABLET 676220 TRAMADOL HCL Inactive VENLAFAXINE HCL 75 MG ORAL TABLET 1 po BID VENLAFAXINE HCL 75 MG ORAL TABLET 804611 VENLAFAXINE HCL Inactive HYDROCODONE-ACETAMINOPHEN 5-500 MG ORAL TABLET take one po Q 4-6 hours prn HYDROCODONE-ACETAMINOPHEN 5-500 MG ORAL TABLET HYDROCODONE-ACETAMINOPHEN Inactive LORTAB 5-500 MG ORAL TABLET 1/2 to 1 tablet by mouth every 4 hours as needed for pain LORTAB 5-500 MG ORAL TABLET HYDROCODONE- ACETAMINOPHEN Inactive LAMISIL 250 MG ORAL TABLET 1 po qd LAMISIL 250 MG ORAL TABLET 388897 TERBINAFINE HCL Inactive VENLAFAXINE HCL 37.5 MG ORAL TABLET 1 po BID VENLAFAXINE HCL 37.5 MG ORAL TABLET 445817 VENLAFAXINE HCL Inactive CIPRO 500 MG ORAL TABLET 1 tablet by mouth twice daily CIPRO 500 MG ORAL TABLET 788166 CIPROFLOXACIN HCL Inactive VENLAFAXINE HCL 75 MG ORAL TABLET 1 po BID VENLAFAXINE HCL 75 MG ORAL TABLET 658513 VENLAFAXINE HCL Inactive SIMVASTATIN 40 MG ORAL TABLET Take one by mouth daily SIMVASTATIN 40 MG ORAL TABLET 145387 SIMVASTATIN Inactive OMEPRAZOLE 20 MG ORAL TABLET DELAYED RELEASE 1 PO 30 MIN BEFORE 1ST MEAL 2010 OMEPRAZOLE 20 MG ORAL TABLET DELAYED RELEASE 274053 OMEPRAZOLE Inactive FENOFIBRATE 145 MG ORAL TABLET 1 po qd FENOFIBRATE 145 MG ORAL TABLET 933282 FENOFIBRATE Inactive BACTRIM DS 800-160 MG ORAL TABLET 1 bid x 14 day start 09-28-13 BACTRIM DS 800-160 MG ORAL TABLET 241786 SULFAMETHOXAZOLE- TRIMETHOPRIM Inactive B-12 100 MCG ORAL TABLET Take one by mouth daily B-12 100 MCG ORAL TABLET CYANOCOBALAMIN Inactive GABAPENTIN 100 MG ORAL CAPSULE 1 po bid GABAPENTIN 100 MG ORAL CAPSULE 767036 GABAPENTIN Inactive HYDROCODONE-ACETAMINOPHEN 5-325 MG ORAL TABLET 1 tab by mouth every 6 hours as needed for pain HYDROCODONE-ACETAMINOPHEN 5-325 MG ORAL TABLET 091947 HYDROCODONE-ACETAMINOPHEN Inactive CIPRO 500 MG ORAL TABLET 1 bid x 14 days start 814 CIPRO 500 MG ORAL TABLET 033926 CIPROFLOXACIN HCL Inactive ALIGN 4 MG ORAL [...] SODIUM 50 MG ORAL TABLET DELAYED RELEASE 137288 DICLOFENAC SODIUM Inactive PREDNISONE 20 MG ORAL TABLET 2 tablets once daily for 2 days, then 1 tablet once daily for 2 days PREDNISONE 20 MG ORAL TABLET 206512 PREDNISONE Inactive TRUEDRAW LANCING DEVICE Test twice a day dx 250.0 TRUEDRAW LANCING DEVICE LANCET DEVICES Inactive TRUERESULT BLOOD GLUCOSE w/Device KIT test blood sugar twice daily dx 250.00 TRUERESULT BLOOD GLUCOSE w/Device KIT BLOOD GLUCOSE MONITORING SUPPL Inactive FLONASE 50 MCG/ACT NASAL SUSPENSION 1 spray each nostril twice daily until bottle empty FLONASE 50 MCG/ACT NASAL SUSPENSION 8161334 FLUTICASONE PROPIONATE Inactive VENTOLIN HFA 108 (90 Base) MCG/ACT INHALATION AEROSOL SOLUTION 1-2 puffs every 4 hours if needed for cough/congestion VENTOLIN HFA 108 (90 Base) MCG/ACT INHALATION AEROSOL SOLUTION ALBUTEROL SULFATE Inactive REQUIP 2 MG ORAL TABLET Take one tablet at bedtime prn REQUIP 2 MG ORAL TABLET 517286 ROPINIROLE HCL Inactive SUPER B COMPLEX/VITAMIN C ORAL TABLET 1 qd SUPER B COMPLEX/VITAMIN C ORAL TABLET 25318387899 B COMPLEX-C Inactive TRUEDRAW LANCING DEVICE test blood sugar twice daily dx: 250.00 TRUEDRAW LANCING DEVICE LANCET DEVICES Inactive TRUETEST TEST IN VITRO STRIP test blood sugar twice daily. DX 250.0 TRUETEST TEST IN VITRO STRIP GLUCOSE BLOOD Inactive CYCLOBENZAPRINE HCL 10 MG ORAL TABLET 1 po TID PRN Muscle Spasm CYCLOBENZAPRINE HCL 10 MG ORAL TABLET 654506 CYCLOBENZAPRINE HCL Inactive DICLOFENAC SODIUM 50 MG ORAL TABLET DELAYED RELEASE 1 po BID PRN Pain DICLOFENAC SODIUM 50 MG ORAL TABLET DELAYED RELEASE 583010 DICLOFENAC SODIUM Inactive DICLOFENAC SODIUM 75 MG ORAL TABLET DELAYED RELEASE 1 po BID PRN Pain DICLOFENAC SODIUM 75 MG ORAL TABLET DELAYED RELEASE 064137 DICLOFENAC SODIUM Inactive NASONEX 50 MCG/ACT NASAL SUSPENSION 2 actuations in each nostril q day 07/15 NASONEX 50 MCG/ACT NASAL SUSPENSION 7800381 MOMETASONE FUROATE Inactive GUAIFENESIN ER 600 MG ORAL TABLET EXTENDED RELEASE 12 HOUR 1 twice a day as needed for congestion GUAIFENESIN ER 600 MG ORAL TABLET EXTENDED RELEASE 12 HOUR GUAIFENESIN Inactive AZITHROMYCIN 250 MG ORAL TABLET 2 po qd x 1, then 1 po qd x 4 AZITHROMYCIN 250 MG ORAL TABLET 388014 AZITHROMYCIN Inactive PROMETHAZINE-CODEINE 6.25-10 MG/5ML ORAL SYRUP 5ml po q6hr PRN Cough PROMETHAZINE-CODEINE 6.25-10 MG/5ML ORAL SYRUP 076279 PROMETHAZINE-CODEINE Inactive TRILIPIX 135 MG ORAL CAPSULE DELAYED RELEASE 1 q hs TRILIPIX 135 MG ORAL CAPSULE DELAYED RELEASE 630371 CHOLINE FENOFIBRATE Inactive TRIAMCINOLONE ACETONIDE 0.1 % EXTERNAL OINTMENT Apply to affected areas TID for up to 2 weeks TRIAMCINOLONE ACETONIDE 0.1 % EXTERNAL OINTMENT 4077926 TRIAMCINOLONE ACETONIDE Inactive PREDNISONE 20 MG ORAL TABLET 2 tabs daily for 3 days, 1 tab daily for 3 days, 1/2 tab daily for 2 days PREDNISONE 20 MG ORAL TABLET 332383 PREDNISONE Inactive PREDNISONE 20 MG ORAL TABLET 2 tabs daily for 3 days, 1 tab daily for 3 days, 1/2 tab daily for 2 days PREDNISONE 20 MG ORAL TABLET 583122 PREDNISONE Inactive BACTRIM DS 800-160 MG ORAL TABLET 1 po BID x 7 days BACTRIM DS 800-160 MG ORAL TABLET 050697 SULFAMETHOXAZOLE-TRIMETHOPRIM Inactive ZITHROMAX 250 MG ORAL TABLET 2 po today, then 1 po q days 2-5 ZITHROMAX 250 MG ORAL TABLET 680946 AZITHROMYCIN Inactive PREDNISONE 20 MG ORAL TABLET 2 po qd x 5 days PREDNISONE 20 MG ORAL TABLET 246697 PREDNISONE Inactive Advance Directives Directive Description Start Date DISCUSSED WITH PATIENT -- NO DECISION MADE Immunizations Vaccine Administration Date Value Standard Description Seasonal influenza vaccine, injectable, containing preservative, for > 3 years old (Afluria, FluLaval, Fluzone, Fluvirin, Fluarix, Agriflu(>=18 yo)) Fluzone (>3 yrs.) [[id number]] Influenza, seasonal, injectable influenza immunization (Flu Vax) has been administered 02/22/2012 influenza virus vaccine, unspecified formulation Seasonal influenza vaccine, injectable, containing preservative, for > 3 years old (Afluria, FluLaval, Fluzone, Fluvirin, Fluarix, Agriflu(>=18 yo)) Fluzone (>3 yrs.) [[id number]] Influenza, seasonal, injectable Vital Signs Date Name [...] ... - Chemistry sodium, serum 141 mmol/L 689-346 9128/01/16 carbon dioxide, venous blood 28.3 mmol/L 21.0-32.0 [...] 6.7 % 4.3-6.0 cholesterol, serum 106 mg/dL 341-420 6346/01/16 triglyceride, serum, fasting 173 mg/dL 30-200 HDL [...] Magnesium - Chemistry sodium, serum 142 mmol/L 449-883 1224/07/16 carbon dioxide, venous blood 29.4 mmol/L 21.0-32.0 [...] Panel - Chemistry cholesterol, serum 170 mg/dL 394-819 5078/07/16 triglyceride, serum, fasting 266 mg/dL 30-200 HDL cholesterol, serum 42 mg/dL 32-60 LDL cholesterol, serum 75 mg/dL 0-130 Encounters Code Encounter Date Provider Facility CPT-08566 Level 4 Est. Patient 14:46:36 CDT Tu Landeros MD [facility] CPT-66652 Level 3 Est. Patient 10:28:05 CDT Tu Landeros MD [facility] CPT-23666 Level 3 Est. Patient 09:11:32 CDT Tu Landeros MD [facility] CPT-67859 Level 3 Est. Patient 10:13:19 VASCULAR SURGEON Lesli Kellogg [facility] CPT-20847 Level 4 Est. Patient 13:42:02 VASCULAR SURGEON Tu Landeros MD [facility] CPT-51448 Level 3 Est. Patient 14:20:36 CDT Tu Landeros MD [facility] CPT-04062 Level 4 Est. Patient 14:28:34 CDT Tu Landeros MD [facility] CPT-73267 Level 3 Est. Patient 13:33:09 CDT Tu Landeros MD [facility] CPT-21818 Level 4 Est. Patient 14:29:21 CDT Tu Landeros MD [facility] CPT-43598 Level 4 Est. Patient 09:08:17 VASCULAR SURGEON Tu Landeros MD [facility] CPT-62746 Level 4 Est. Patient 14:40:19 CDT Tu Landeros MD [facility] CPT-60235 Level 4 Est. Patient 14:06:04 VASCULAR SURGEON Tu Landeros MD [facility] CPT-39372 Level 3 Est. Patient 14:05:18 VASCULAR SURGEON Tu Landeros MD [facility] CPT-58505 Level 3 Est. Patient 10:06:54 VASCULAR SURGEON Miranda Farah CHAIN CARRIER [facility] CPT-76208 Level 4 Est. Patient 13:50:18 VASCULAR SURGEON Tu Landeros MD [facility] CPT-96297 Level 3 Est. Patient 10:30:04 CDT Tu Landeros MD [facility] CPT-80843 Level 4 Est. Patient 11:03:38 CDT Tu Landeros MD [facility] CPT-29400 Level 3 Est. Patient 10:20:44 CDT Fab Morales DO [facility] CPT-72762 Level 4 Est. Patient 14:38:57 CDT Tu Landeros MD [facility] CPT-06045 Level 4 Est. Patient 14:27:39 VASCULAR SURGEON Tu Landeros MD [facility] CPT-07432 Level 4 Est. Patient 09:45:25 CDT Tu Landeros MD [facility] CPT-53552 Level 4 Est. Patient 09:05:20 VASCULAR SURGEON Tu Landeros MD [facility] CPT-28183 Level 4 Est. Patient 14:09:06 CDT Tu Landeros MD [facility] CPT-81717 Level 3 Est. Patient 13:36:54 CDT Tu Landeros MD [facility] CPT-39007 Level 3 Est. Patient 08:59:14 CDT Tu Landeros MD [facility] CPT-16759 Level 3 Est. Patient 13:48:35 CDT Fab Morales DO [facility] CPT-56245 Level 4 Est. Patient 10:05:48 CDT Tu Landeros MD [facility] CPT-86218 Level 3 Est. Patient 13:38:42 CDT Marek BANKS [facility] CPT-71185 Level 5 Est. Patient 08:08:39 CDT Jerrica FRANCIS [facility] CPT-27103 Level 4 Est. Patient 14:23:38 CDT Tu Landeros MD [facility] CPT-79367 Level 3 Est. Patient 11:44:04 CDT Tu Landeros MD [facility] CPT-38662 Level 3 Est. Patient 11:03:20 VASCULAR SURGEON Tu Landeros MD [facility] CPT-46895 Level 3 Est. Patient 11:03:14 VASCULAR SURGEON Tu Landeros MD [facility] CPT-35414 Level 3 Est. Patient 12:42:49 CDT Tu Landeros MD [facility] CPT-00741 Level 3 Est. Patient 11:52:06 CDT Tu Landeros MD [facility] CPT-67655 Level 3 Est. Patient 13:58:11 CDT Tu Landeros MD [facility] CPT-31253 Level 3 Est. Patient 17:50:07 CDT Fab Morales DO [facility] CPT-45933 Level 3 Est. Patient 12:06:29 CDT Elvira Cervantes MD PhD [facility] CPT-51437 Level 3 Est. Patient 15:50:32 CDT Tu Landeros MD [facility] CPT-38970 Level 4 Est. Patient 16:08:29 CDT Tu Landeros MD [facility] CPT-49228 Level 3 Est. Patient 16:04:19 CDT Tu Landeros MD [facility] CPT-17707 Level 3 Est. Patient 11:22:30 VASCULAR SURGEON Tu Landeros MD [facility] CPT-86608 Level 4 Est. Patient 16:24:02 VASCULAR SURGEON Tu Landeros MD [facility] CPT-51258 Level 3 Est. Patient 17:21:23 VASCULAR SURGEON Tu Landeros MD [facility] Procedures Code Procedure Name Date Entry Date Standard Description CPT-G0439 [facility] Annual Wellness Exam 14:46:36 CDT CPT-83807 Shoulder, right, comp min 2V - XRAY USE ONLY 13:50:22 CDT CPT-G0009 Administration of Pneumococcal Vaccine 15:08:26 CDT CPT-89303 Prevnar 13 Intramuscular Suspension 15:08:26 CDT 10/08 CPT-G0439 Subsequent Annual Wellness Exam 14:29:22 CDT CPT-90142 Venipuncture Draw Fee 13:15:35 CDT CPT-63664 Magnesium - LAB USE ONLY 11:14:20 VASCULAR SURGEON CPT-83550 Lipid - LAB USE ONLY 11:14:20 VASCULAR SURGEON CPT-81119 HGBA1C - LAB USE ONLY 11:14:20 VASCULAR SURGEON CPT-46213 CMP - LAB USE ONLY 11:14:19 VASCULAR SURGEON CPT-82051 CBC - LAB USE ONLY 11:14:19 VASCULAR SURGEON CPT-03879 Venipuncture Draw Fee 11:14:18 VASCULAR SURGEON CPT-79169 First Vx - Ix admin for Medicare patients 16:46:52 CDT CPT-76773 Fluzone Preservative Free Intramuscular Suspension 16:46 :51 CDT CPT-33686 CBC - LAB USE ONLY 17:14:46 CDT CPT-91264 HGBA1C - LAB USE ONLY 17:14:46 CDT CPT-14419 Venipuncture Draw Fee 17:14:46 CDT CPT-G0438 Initial Annual Wellness Exam 14:13:04 CDT CPT-45251 Breathing Tx 10:06:54 VASCULAR SURGEON CPT-13562 Postop F/U Visit 10:02:45 CDT CPT-LR Lesion Removal 09:02:56 CDT CPT-JTINJ Asp/Joint Injection 15:51:27 VASCULAR SURGEON CPT-OV Office Visit 15:52:02 VASCULAR SURGEON CPT-OV Office Visit 15:45:11 CDT CPT-000 Give Zostavax 14:09:06 CDT CPT-43155 Administration single or combination vaccine inc oral 15 :19:04 CDT CPT-78175 Zoster Vaccine (Zostavax) 15:19:04 CDT CPT-46813 Administration single or combination vaccine inc oral 20 :51:03 CDT CPT-45873 Influenza split virus > age 3 20:51:03 CDT CPT-05311 No Charge Offi Visit 14:52:03 CDT CPT-OV Office Visit 14:57:43 CDT CPT-OV Office Visit 15:22:32 CDT CPT-44378 Administration single or combination vaccine inc oral 11 :33:15 CDT CPT-60467 Influenza split virus > age 3 11:33:15 CDT
--- OUTSIDE RECORDS SUMMARY | 2018-04-25 11:48 | XMS REPORT | Clinical Summary ---
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 Acute upper respiratory infections of unspecified site [...] 1 GM ORAL CAPSULE 1 po qd [id number] ETHYL ESTERS 45642530721 Active Tu Landeros MD Active TRILIPIX 135 MG ORAL CAPSULE DELAYED RELEASE 1 q hs CHOLINE FENOFIBRATE 09248657633 No Longer Active Cynthia NUNOA Active TRIAMCINOLONE ACETONIDE 0.1 % EXTERNAL CREAM Apply to affected area TID for up to 2 weeks TRIAMCINOLONE ACETONIDE 80388221585 Active Tu Landeros MD Active INDOMETHACIN 50 MG ORAL CAPSULE 1 po TID PRN Pain INDOMETHACIN 16320493826 Active Tu Landeros MD Active PROMETHAZINE-CODEINE 6.25-10 MG/5ML ORAL SYRUP 5ml po q6hr PRN Cough PROMETHAZINE-CODEINE 56568249102 No Longer Active Tu Landeros MD Active AZITHROMYCIN 250 MG ORAL TABLET 2 po qd x 1, then 1 po qd x 4 AZITHROMYCIN 30381944391 No Longer Active Tu Landeros MD Active GUAIFENESIN ER 600 MG ORAL TABLET EXTENDED RELEASE 12 HOUR 1 twice a day as needed for congestion GUAIFENESIN 75255369652 No Longer Active Tu Landeros MD Active PREDNISONE 20 MG ORAL TABLET 2 po qd x 5 days PREDNISONE 84095309737 No Longer Active Tu Landeros MD Active FLUTICASONE PROPIONATE 50 MCG/ACT NASAL SUSPENSION 2 sprays/nostril qd PRN Congestion/Allergies FLUTICASONE PROPIONATE 25201386715 Active Tu Landeros MD Active NASONEX 50 MCG/ACT NASAL SUSPENSION 2 actuations in each nostril q day 07/15 MOMETASONE FUROATE 52875868705 No Longer Active Tu Landeros MD Active MAGNESIUM OXIDE 400 MG ORAL TABLET 1 po BID MAGNESIUM OXIDE 15402090999 Active Tu Landeros MD Active SIMVASTATIN 20 MG ORAL TABLET 0.5 po qHS SIMVASTATIN 96478721472 Active Tu Landeros MD Active DICLOFENAC SODIUM 75 MG ORAL TABLET DELAYED RELEASE 1 po BID PRN Pain DICLOFENAC SODIUM 05578089548 No Longer Active Tu Landeros MD Active GABAPENTIN 100 MG ORAL CAPSULE 1 po TID GABAPENTIN 04407307819 Active Tu Landeros MD Active DICLOFENAC SODIUM 50 MG ORAL TABLET DELAYED RELEASE 1 po BID PRN Pain DICLOFENAC SODIUM 03346704927 No Longer Active Tu Landeros MD Active CYCLOBENZAPRINE HCL 10 MG ORAL TABLET 1 po TID PRN Muscle Spasm CYCLOBENZAPRINE HCL 89977250789 No Longer Active Tu Landeros MD Active INVOKANA 100 MG ORAL TABLET 1 po qd CANAGLIFLOZIN 60066536197 Active José Luis Becerra MD Active GLIPIZIDE 5 MG ORAL TABLET 1 po qd GLIPIZIDE 23840178076 No Longer Active Tu Landeros MD Active VENLAFAXINE HCL 75 MG ORAL TABLET 1 po BID VENLAFAXINE HCL 06618814132 Active Tu Landeros MD Active GLIMEPIRIDE 1 MG ORAL TABLET 1 po qd GLIMEPIRIDE 94159554044 No Longer Active Tu Landeros MD Active TRUE METRIX BLOOD GLUCOSE TEST IN VITRO STRIP Test blood sugar BID Dx: E11.9 GLUCOSE BLOOD 11395520203 Active Tu Landeros MD Active TRUE METRIX AIR GLUCOSE METER w/Device KIT Test blood glucose BID Dx: E11.9 BLOOD GLUCOSE MONITORING SUPPL 22908058865 Active Tu Landeros MD Active TRUETEST TEST IN VITRO STRIP test blood sugar twice daily. DX 250.0 GLUCOSE BLOOD 62585622939 No Longer Active Mirna Stanley LPN Active TRUEDRAW LANCING DEVICE test blood sugar twice daily dx: 250.00 LANCET DEVICES 46229248981 No Longer Active Mirna Stanley LPN Active ENALAPRIL MALEATE 20 MG ORAL TABLET 2 po qd ENALAPRIL MALEATE 86721446996 Active Tu Landeros MD Active SUPER B COMPLEX/VITAMIN C ORAL TABLET 1 qd B COMPLEX- C 87092844305 No Longer Active Tu Landeros MD Active ASPIRIN EC 81 MG ORAL TABLET DELAYED RELEASE 1 po qd ASPIRIN 00557361580 Active Tu Landeros MD Active GLUCOSAMINE 500 MG TABS 2 po qd GLUCOSAMINE Active Tu Landeros MD Active FISH OIL 1000 MG ORAL CAPSULE 1 po qd OMEGA-3 FATTY ACIDS 08001429308 Active Tu Landeros MD Active METFORMIN HCL 1000 MG ORAL TABLET 1 po BID METFORMIN HCL 47384739995 Active Tu Landeros MD Active KLOR-CON 10 10 MEQ ORAL TABLET EXTENDED RELEASE 2 po qd POTASSIUM CHLORIDE 71059351109 Active Tu Landeros MD Active FUROSEMIDE 40 MG ORAL TABLET 1 po qd FUROSEMIDE 75042522730 Active Tu Landeros MD Active REQUIP 2 MG ORAL TABLET 1 po qHS PRN Restless legs ROPINIROLE HCL 55006995862 Active Tu Landeros MD Active REQUIP 2 MG ORAL TABLET Take one tablet at bedtime prn ROPINIROLE HCL 37191462087 No Longer Active Tu Landeros MD Active VENTOLIN HFA 108 (90 Base) MCG/ACT INHALATION AEROSOL SOLUTION 1-2 puffs every 4 hours if needed for cough/congestion ALBUTEROL SULFATE 90535920746 No Longer Active Ambika Aden APRN Active ZITHROMAX 250 MG ORAL TABLET 2 po today, then 1 po q days 2-5 AZITHROMYCIN 23375016363 No Longer Active Miranda Farah APRN Active FLONASE 50 MCG/ACT NASAL SUSPENSION 1 spray each nostril twice daily until bottle empty FLUTICASONE PROPIONATE 60218438545 No Longer Active Tu Landeros MD Active COLACE 100 MG ORAL CAPSULE 1 po BID PRN Constipation DOCUSATE SODIUM 98607167041 Active Tu Landeros MD Active TRUERESULT BLOOD GLUCOSE w/Device KIT test blood sugar twice daily dx 250.00 BLOOD GLUCOSE MONITORING SUPPL 16281680642 No Longer Active Tu Landeros MD Active TRUEDRAW LANCING DEVICE Test twice a day dx 250.0 LANCET DEVICES 29810458609 No Longer Active Tu Landeros MD Active PREDNISONE 20 MG ORAL TABLET 2 tablets once daily for 2 days, then 1 tablet once daily for 2 days PREDNISONE 49267672516 No Longer Active Tu Landeros MD Active DICLOFENAC SODIUM 50 MG ORAL TABLET DELAYED RELEASE 1 tablet by mouth three times a day as needed DICLOFENAC SODIUM 18173552487 No Longer Active Fab Morales DO Active EMBRACE BLOOD GLUCOSE TEST IN VITRO STRIP test blood sugar twice daily DX 250.0 GLUCOSE BLOOD 32963304077 No Longer Active Tu Landeros MD Active TRUETEST TEST IN VITRO STRIP test blood sugar three times daily dx: 250.00 GLUCOSE BLOOD 42200754577 No Longer Active Suze VOGEL Active TRUERESULT BLOOD GLUCOSE w/Device KIT use to test blood sugar tid dx: 250.00 BLOOD GLUCOSE MONITORING SUPPL 21781815824 No Longer Active Suzebianca VOGEL Active ALIGN 4 MG ORAL CAPSULE 1 tid PROBIOTIC PRODUCT 91555949549 No Longer Active Shaun Sy MD Active CIPRO 500 MG ORAL TABLET 1 bid x 14 days start 09-28-13 CIPROFLOXACIN HCL 65990589884 No Longer Active Shaun Sy MD Active TRAMADOL HCL 50 MG ORAL TABLET 1-2 tablets every 6 hours as needed for pain TRAMADOL HCL 30408526637 Active Tu Landeros MD Active HYDROCODONE-ACETAMINOPHEN 5-325 MG ORAL TABLET 1 tab by mouth every 6 hours as needed for pain HYDROCODONE-ACETAMINOPHEN 08837885247 No Longer Active Tu Landeros MD Active OMEPRAZOLE 20 MG ORAL CAPSULE DELAYED RELEASE 1 po q a.m. OMEPRAZOLE 05882419177 Active Tu Landeros MD Active GABAPENTIN 100 MG ORAL CAPSULE 1 po bid GABAPENTIN 54019904381 No Longer Active Tu Landeros MD Active B-12 100 MCG ORAL TABLET Take one by mouth daily CYANOCOBALAMIN 45160615691 No Longer Active Tu Landeros MD Active BACTRIM DS 800-160 MG ORAL TABLET 1 bid x 14 day start 09-28-13 SULFAMETHOXAZOLE-TRIMETHOPRIM 12250852897 No Longer Active Tu Landeros MD Active CARVEDILOL 12.5 MG ORAL TABLET 1 po BID CARVEDILOL 42065755927 Active Tu Landeros MD Active FENOFIBRATE 145 MG ORAL TABLET 1 po qd FENOFIBRATE 12079948320 No Longer Active JASPREET Perez Active OMEPRAZOLE 20 MG ORAL TABLET DELAYED RELEASE 1 PO 30 MIN BEFORE 1ST MEAL 2010 OMEPRAZOLE 56310412934 No Longer Active JASPREET Perez Active SIMVASTATIN 40 MG ORAL TABLET Take one by mouth daily SIMVASTATIN 69837245668 No Longer Active JASPREET Perez Active VENLAFAXINE HCL 75 MG ORAL TABLET 1 po BID VENLAFAXINE HCL 76869921234 No Longer Active JASPREET Perez Active CIPRO 500 MG ORAL TABLET 1 tablet by mouth twice daily CIPROFLOXACIN HCL 23618896701 No Longer Active Tu Landeros MD Active VENLAFAXINE HCL 37.5 MG ORAL TABLET 1 po BID VENLAFAXINE HCL 49013438255 No Longer Active Suze NUNOA Active LAMISIL 250 MG ORAL TABLET 1 po qd TERBINAFINE HCL 84465498273 No Longer Active Tu Landeros MD Active LORTAB 5-500 MG ORAL TABLET 1/2 to 1 tablet by mouth every 4 hours as needed for pain HYDROCODONE-ACETAMINOPHEN 90800467469 No Longer Active Tu Landeros MD Active HYDROCODONE-ACETAMINOPHEN 5-500 MG ORAL TABLET take one po Q 4-6 hours prn HYDROCODONE-ACETAMINOPHEN 68095056612 No Longer Active Tu Landeros MD Active BACTRIM DS 800-160 MG ORAL TABLET 1 po BID x 7 days SULFAMETHOXAZOLE-TRIMETHOPRIM 84233165607 No Longer Active Tu Landeros MD Active VENLAFAXINE HCL 75 MG ORAL TABLET 1 po BID VENLAFAXINE HCL 51936067669 No Longer Active Elvira Cervantes MD PhD Active TRAMADOL HCL 50 MG ORAL TABLET 1 tablets every 6 hours as needed for pain TRAMADOL HCL 41396737366 No Longer Active Tu Landeros MD Active ACCU-CHEDawson FASTCLIX LANCETS Use to check bloodsugar three times daily as needed LANCETS 93712958635 No Longer Active Tu Landeros MD Active ACCU-CHEDawson KEYONA PLUS IN VITRO STRIP Use for testing bloodsugars three times daily as needed GLUCOSE BLOOD 04384215426 No Longer Active Tu Landeros MD Active ACCU-CHEK KEYONA PLUS w/Device KIT Use for testing bloodsugars three times daily as needed BLOOD GLUCOSE MONITORING SUPPL 08752987284 No Longer Active Tu Landeros MD Active SPIRONOLACTONE 25 MG ORAL TABLET 0.5 tablet by mouth daily 09/09 SPIRONOLACTONE 13826321790 No Longer Active Tu Landeros MD Active ALPRAZOLAM 0.5 MG ORAL TABLET 1 tab every 6hrs as needed ALPRAZOLAM 51669073557 No Longer Active Tu Landeros MD Active AUGMENTIN 875-125 MG ORAL TABLET 1 tab by mouth twice daily with food AMOXICILLIN-POT CLAVULANATE 91679171355 No Longer Active Tu Landeros MD Active PREDNISONE 20 MG ORAL TABLET 2 tabs daily for 3 days, 1 tab daily for 3 days, 1/2 tab daily for 2 days PREDNISONE 19137145028 No Longer Active Tu Landeros MD Active XANAX 0.5 MG ORAL TABLET 1 tablet every 6 hrs prn ALPRAZOLAM 70370774160 No Longer Active Tu Landeros MD Active PREDNISONE 20 MG ORAL TABLET 2 tabs daily for 3 days, 1 tab daily for 3 days, 1/2 tab daily for 2 days PREDNISONE 74430208860 No Longer Active Tu Landeros MD Active TRIAMCINOLONE ACETONIDE 0.1 % EXTERNAL OINTMENT Apply to affected areas TID for up to 2 weeks TRIAMCINOLONE ACETONIDE 09530443207 No Longer Active Tu Landeros MD Active LORTAB 5-500 MG ORAL TABLET 1/2 to 1 tablet by mouth every 4 hours as needed for pain HYDROCODONE-ACETAMINOPHEN 39422792372 No Longer Active Tu Landeros MD Active MULTIVITAMINS TABS Take one by mouth daily MULTIPLE VITAMIN 71710194033 No Longer Active Tu Landeros MD Active MELATONIN 5 MG ORAL TABLET Take one by mouth daily MELATONIN 50921075653 No Longer Active Tu Landeros MD Active SOMA 350 MG ORAL TABLET 1 po q 6 hours prn spasm CARISOPRODOL 43301296833 No Longer Active Tu Landeros MD Active MECLIZINE HCL 25 MG ORAL TABLET CHEWABLE 1 four times a day as needed for dizziness MECLIZINE HCL 18083999939 No Longer Active Fab Morales DO Active ANGEL BREEZE 2 TEST IN VITRO DISK test tid prn GLUCOSE BLOOD 64882006663 No Longer Active Negra Scott RN Active REGLAN 10 MG ORAL TABLET 1 po TID PRN Nausea METOCLOPRAMIDE HCL 62532478067 No Longer Active Tu Landeros MD Active METFORMIN HCL 500 MG ORAL TABLET 1 PO BID METFORMIN HCL 94297843374 No Longer Active Tu Landeros MD Active AMBIEN 10 MG ORAL TABLET 1 tab by mouth at bedtime as needed for sleep 06/10 ZOLPIDEM TARTRATE 66385252883 No Longer Active Tu Landeros MD Active FLUOXETINE HCL 40 MG ORAL CAPSULE 1 po q day FLUOXETINE HCL 83657198585 No Longer Active Mayra Madison Active TRILIPIX 135 MG ORAL CAPSULE DELAYED RELEASE 1 po qd CHOLINE FENOFIBRATE 22104969414 No Longer Active Tu Landeros MD Active AMBIEN 10 MG ORAL TABLET 1 tab by mouth at bedtime as needed for sleep 06/10 AMBIEN 10 MG ORAL TABLET 275790 ZOLPIDEM TARTRATE Inactive METFORMIN HCL 500 MG ORAL TABLET 1 PO BID METFORMIN HCL 500 MG ORAL TABLET 113653 METFORMIN HCL Inactive REGLAN 10 MG ORAL TABLET 1 po TID PRN Nausea REGLAN 10 MG ORAL TABLET 677778 METOCLOPRAMIDE HCL Inactive MECLIZINE HCL 25 MG ORAL TABLET CHEWABLE 1 four times a day as needed for dizziness MECLIZINE HCL 25 MG ORAL TABLET CHEWABLE 264763 MECLIZINE HCL Inactive SOMA 350 MG ORAL TABLET 1 po q 6 hours prn spasm SOMA 350 MG ORAL TABLET 249436 CARISOPRODOL Inactive MELATONIN 5 MG ORAL TABLET Take one by mouth daily MELATONIN 5 MG ORAL TABLET 665155 MELATONIN Inactive MULTIVITAMINS TABS Take one by mouth daily MULTIVITAMINS TABS MULTIPLE VITAMIN Inactive LORTAB 5-500 MG ORAL TABLET 1/2 to 1 tablet by mouth every 4 hours as needed for pain LORTAB 5-500 MG ORAL TABLET HYDROCODONE- ACETAMINOPHEN Inactive XANAX 0.5 MG ORAL TABLET 1 tablet every 6 hrs prn XANAX 0.5 MG ORAL TABLET 310828 ALPRAZOLAM Inactive AUGMENTIN 875-125 MG ORAL TABLET 1 tab by mouth twice daily with food AUGMENTIN 875-125 MG ORAL TABLET 836917 AMOXICILLIN-POT CLAVULANATE Inactive ALPRAZOLAM 0.5 MG ORAL TABLET 1 tab every 6hrs as needed ALPRAZOLAM 0.5 MG ORAL TABLET 256990 ALPRAZOLAM Inactive SPIRONOLACTONE 25 MG ORAL TABLET 0.5 tablet by mouth daily 09/09 SPIRONOLACTONE 25 MG ORAL TABLET 843065 SPIRONOLACTONE Inactive ACCU-CHEK KEYONA PLUS w/Device KIT [...] times daily as needed ACCU-CHEK FASTCLIX LANCETS 06333687400 LANCETS Inactive TRAMADOL HCL 50 MG ORAL TABLET 1 tablets every 6 hours as needed for pain TRAMADOL HCL 50 MG ORAL TABLET 849463 TRAMADOL HCL Inactive VENLAFAXINE HCL 75 MG ORAL TABLET 1 po BID VENLAFAXINE HCL 75 MG ORAL TABLET 543277 VENLAFAXINE HCL Inactive HYDROCODONE-ACETAMINOPHEN 5-500 MG ORAL TABLET take one po Q 4-6 hours prn HYDROCODONE-ACETAMINOPHEN 5-500 MG ORAL TABLET HYDROCODONE-ACETAMINOPHEN Inactive LORTAB 5-500 MG ORAL TABLET 1/2 to 1 tablet by mouth every 4 hours as needed for pain LORTAB 5-500 MG ORAL TABLET HYDROCODONE- ACETAMINOPHEN Inactive LAMISIL 250 MG ORAL TABLET 1 po qd LAMISIL 250 MG ORAL TABLET 939391 TERBINAFINE HCL Inactive VENLAFAXINE HCL 37.5 MG ORAL TABLET 1 po BID VENLAFAXINE HCL 37.5 MG ORAL TABLET 940535 VENLAFAXINE HCL Inactive CIPRO 500 MG ORAL TABLET 1 tablet by mouth twice daily CIPRO 500 MG ORAL TABLET 475732 CIPROFLOXACIN HCL Inactive VENLAFAXINE HCL 75 MG ORAL TABLET 1 po BID VENLAFAXINE HCL 75 MG ORAL TABLET 538891 VENLAFAXINE HCL Inactive SIMVASTATIN 40 MG ORAL TABLET Take one by mouth daily SIMVASTATIN 40 MG ORAL TABLET 442406 SIMVASTATIN Inactive OMEPRAZOLE 20 MG ORAL TABLET DELAYED RELEASE 1 PO 30 MIN BEFORE 1ST MEAL 2010 OMEPRAZOLE 20 MG ORAL TABLET DELAYED RELEASE 616810 OMEPRAZOLE Inactive FENOFIBRATE 145 MG ORAL TABLET 1 po qd FENOFIBRATE 145 MG ORAL TABLET 271690 FENOFIBRATE Inactive BACTRIM DS 800-160 MG ORAL TABLET 1 bid x 14 day start 09-28-13 BACTRIM DS 800-160 MG ORAL TABLET 366262 SULFAMETHOXAZOLE- TRIMETHOPRIM Inactive B-12 100 MCG ORAL TABLET Take one by mouth daily B-12 100 MCG ORAL TABLET CYANOCOBALAMIN Inactive GABAPENTIN 100 MG ORAL CAPSULE 1 po bid GABAPENTIN 100 MG ORAL CAPSULE 487900 GABAPENTIN Inactive HYDROCODONE-ACETAMINOPHEN 5-325 MG ORAL TABLET 1 tab by mouth every 6 hours as needed for pain HYDROCODONE-ACETAMINOPHEN 5-325 MG ORAL TABLET 250635 HYDROCODONE-ACETAMINOPHEN Inactive CIPRO 500 MG ORAL TABLET 1 bid x 14 days start 814 CIPRO 500 MG ORAL TABLET 888689 CIPROFLOXACIN HCL Inactive ALIGN 4 MG ORAL [...] SODIUM 50 MG ORAL TABLET DELAYED RELEASE 865158 DICLOFENAC SODIUM Inactive PREDNISONE 20 MG ORAL TABLET 2 tablets once daily for 2 days, then 1 tablet once daily for 2 days PREDNISONE 20 MG ORAL TABLET 394871 PREDNISONE Inactive TRUEDRAW LANCING DEVICE Test twice a day dx 250.0 TRUEDRAW LANCING DEVICE LANCET DEVICES Inactive TRUERESULT BLOOD GLUCOSE w/Device KIT test blood sugar twice daily dx 250.00 TRUERESULT BLOOD GLUCOSE w/Device KIT BLOOD GLUCOSE MONITORING SUPPL Inactive FLONASE 50 MCG/ACT NASAL SUSPENSION 1 spray each nostril twice daily until bottle empty FLONASE 50 MCG/ACT NASAL SUSPENSION 6450234 FLUTICASONE PROPIONATE Inactive VENTOLIN HFA 108 (90 Base) MCG/ACT INHALATION AEROSOL SOLUTION 1-2 puffs every 4 hours if needed for cough/congestion VENTOLIN HFA 108 (90 Base) MCG/ACT INHALATION AEROSOL SOLUTION ALBUTEROL SULFATE Inactive REQUIP 2 MG ORAL TABLET Take one tablet at bedtime prn REQUIP 2 MG ORAL TABLET 915116 ROPINIROLE HCL Inactive SUPER B COMPLEX/VITAMIN C ORAL TABLET 1 qd SUPER B COMPLEX/VITAMIN C ORAL TABLET 31774556879 B COMPLEX-C Inactive TRUEDRAW LANCING DEVICE test blood sugar twice daily dx: 250.00 TRUEDRAW LANCING DEVICE LANCET DEVICES Inactive TRUETEST TEST IN VITRO STRIP test blood sugar twice daily. DX 250.0 TRUETEST TEST IN VITRO STRIP GLUCOSE BLOOD Inactive CYCLOBENZAPRINE HCL 10 MG ORAL TABLET 1 po TID PRN Muscle Spasm CYCLOBENZAPRINE HCL 10 MG ORAL TABLET 792160 CYCLOBENZAPRINE HCL Inactive DICLOFENAC SODIUM 50 MG ORAL TABLET DELAYED RELEASE 1 po BID PRN Pain DICLOFENAC SODIUM 50 MG ORAL TABLET DELAYED RELEASE 046438 DICLOFENAC SODIUM Inactive DICLOFENAC SODIUM 75 MG ORAL TABLET DELAYED RELEASE 1 po BID PRN Pain DICLOFENAC SODIUM 75 MG ORAL TABLET DELAYED RELEASE 542073 DICLOFENAC SODIUM Inactive NASONEX 50 MCG/ACT NASAL SUSPENSION 2 actuations in each nostril q day 07/15 NASONEX 50 MCG/ACT NASAL SUSPENSION 1870909 MOMETASONE FUROATE Inactive GUAIFENESIN ER 600 MG ORAL TABLET EXTENDED RELEASE 12 HOUR 1 twice a day as needed for congestion GUAIFENESIN ER 600 MG ORAL TABLET EXTENDED RELEASE 12 HOUR GUAIFENESIN Inactive AZITHROMYCIN 250 MG ORAL TABLET 2 po qd x 1, then 1 po qd x 4 AZITHROMYCIN 250 MG ORAL TABLET 228270 AZITHROMYCIN Inactive PROMETHAZINE-CODEINE 6.25-10 MG/5ML ORAL SYRUP 5ml po q6hr PRN Cough PROMETHAZINE-CODEINE 6.25-10 MG/5ML ORAL SYRUP 654415 PROMETHAZINE-CODEINE Inactive TRILIPIX 135 MG ORAL CAPSULE DELAYED RELEASE 1 q hs TRILIPIX 135 MG ORAL CAPSULE DELAYED RELEASE 872666 CHOLINE FENOFIBRATE Inactive TRIAMCINOLONE ACETONIDE 0.1 % EXTERNAL OINTMENT Apply to affected areas TID for up to 2 weeks TRIAMCINOLONE ACETONIDE 0.1 % EXTERNAL OINTMENT 6253871 TRIAMCINOLONE ACETONIDE Inactive PREDNISONE 20 MG ORAL TABLET 2 tabs daily for 3 days, 1 tab daily for 3 days, 1/2 tab daily for 2 days PREDNISONE 20 MG ORAL TABLET 814243 PREDNISONE Inactive PREDNISONE 20 MG ORAL TABLET 2 tabs daily for 3 days, 1 tab daily for 3 days, 1/2 tab daily for 2 days PREDNISONE 20 MG ORAL TABLET 676731 PREDNISONE Inactive BACTRIM DS 800-160 MG ORAL TABLET 1 po BID x 7 days BACTRIM DS 800-160 MG ORAL TABLET 087617 SULFAMETHOXAZOLE-TRIMETHOPRIM Inactive ZITHROMAX 250 MG ORAL TABLET 2 po today, then 1 po q days 2-5 ZITHROMAX 250 MG ORAL TABLET 042629 AZITHROMYCIN Inactive PREDNISONE 20 MG ORAL TABLET 2 po qd x 5 days PREDNISONE 20 MG ORAL TABLET 804044 PREDNISONE Inactive Advance Directives Directive Description Start Date DISCUSSED WITH PATIENT -- NO DECISION MADE Immunizations Vaccine Administration Date Value Standard Description Seasonal influenza vaccine, injectable, containing preservative, for > 3 years old (Afluria, FluLaval, Fluzone, Fluvirin, Fluarix, Agriflu(>=18 yo)) Fluzone (>3 yrs.) [[id number]] Influenza, seasonal, injectable influenza immunization (Flu Vax) has been administered 02/22/2012 influenza virus vaccine, unspecified formulation Seasonal influenza vaccine, injectable, containing preservative, for > 3 years old (Afluria, FluLaval, Fluzone, Fluvirin, Fluarix, Agriflu(>=18 yo)) Fluzone (>3 yrs.) [[id number]] Influenza, seasonal, injectable Vital Signs Date Name [...] temperature weight E&M 295 [lb_av] Weight Measured blood pressure, diastolic 55 mm[Hg] BP ac blood pressure, systolic 133 mm[Hg] BP sys height E&M 60.25 [in_us] Bdy height pulse rate E&M 67 /min Heart rate temperature E&M 97.6 [degF] Body temperature weight E&M 297.8 [lb_av] Weight Measured Diagnostic Results Date Name Value Unit Range Description Lab Report: CBC, Comp. Metabolic Panel, HGBA1C, Lipid Panel, Magnesium, ... - Chemistry sodium, serum 141 mmol/L 575-076 8011/01/16 carbon dioxide, venous blood 28.3 mmol/L 21.0-32.0 [...] 6.7 % 4.3-6.0 cholesterol, serum 106 mg/dL 723-485 6546/01/16 triglyceride, serum, fasting 173 mg/dL 30-200 HDL [...] Magnesium - Chemistry sodium, serum 142 mmol/L 782-811 3291/07/16 carbon dioxide, venous blood 29.4 mmol/L 21.0-32.0 [...] Panel - Chemistry cholesterol, serum 170 mg/dL 055-990 1621/07/16 triglyceride, serum, fasting 266 mg/dL 30-200 HDL cholesterol, serum 42 mg/dL 32-60 LDL cholesterol, serum 75 mg/dL 0-130 Encounters Code Encounter Date Provider Facility CPT-39933 Level 4 Est. Patient 14:46:36 CDT Tu Landeros MD [facility] CPT-96256 Level 3 Est. Patient 10:28:05 CDT Tu Landeros MD [facility] CPT-03160 Level 3 Est. Patient 09:11:32 CDT Tu Landeros MD [facility] CPT-66186 Level 3 Est. Patient 10:13:19 PACKER Lesli Kellogg APRN [facility] CPT-74495 Level 4 Est. Patient 13:42:02 PACKER Tu Landeros MD [facility] CPT-43280 Level 3 Est. Patient 14:20:36 CDT Tu Landeros MD [facility] CPT-51034 Level 4 Est. Patient 14:28:34 CDT Tu Landeros MD [facility] CPT-64548 Level 3 Est. Patient 13:33:09 CDT Tu Landeros MD [facility] CPT-84190 Level 4 Est. Patient 14:29:21 CDT Tu Landeros MD [facility] CPT-14379 Level 4 Est. Patient 09:08:17 PACKER Tu Landeros MD [facility] CPT-46756 Level 4 Est. Patient 14:40:19 CDT Tu Landeros MD [facility] CPT-52182 Level 4 Est. Patient 14:06:04 PACKER Tu Landeros MD [facility] CPT-44751 Level 3 Est. Patient 14:05:18 PACKER Tu Landeros MD [facility] CPT-88248 Level 3 Est. Patient 10:06:54 PACKER Miranda Farah APRN [facility] CPT-89733 Level 4 Est. Patient 13:50:18 PACKER Tu Landeros MD [facility] CPT-11114 Level 3 Est. Patient 10:30:04 CDT Tu Landeros MD [facility] CPT-04320 Level 4 Est. Patient 11:03:38 CDT Tu Landeros MD [facility] CPT-04657 Level 3 Est. Patient 10:20:44 CDT Fab Morales DO [facility] CPT-15113 Level 4 Est. Patient 14:38:57 CDT Tu Landeros MD [facility] CPT-11353 Level 4 Est. Patient 14:27:39 PACKER Tu Landeros MD [facility] CPT-54763 Level 4 Est. Patient 09:45:25 CDT Tu Landeros MD [facility] CPT-52351 Level 4 Est. Patient 09:05:20 PACKER Tu Landeros MD [facility] CPT-90994 Level 4 Est. Patient 14:09:06 CDT Tu Landeros MD [facility] CPT-74334 Level 3 Est. Patient 13:36:54 CDT Tu Landeros MD [facility] CPT-32862 Level 3 Est. Patient 08:59:14 CDT Tu Landeros MD [facility] CPT-42032 Level 3 Est. Patient 13:48:35 CDT Fab Morales DO [facility] CPT-95443 Level 4 Est. Patient 10:05:48 CDT Tu Landeros MD [facility] CPT-02164 Level 3 Est. Patient 13:38:42 CDT Marek BANKS [facility] CPT-85231 Level 5 Est. Patient 08:08:39 CDT Jerrica Hopkins TITO [facility] CPT-55738 Level 4 Est. Patient 14:23:38 CDT Tu Landeros MD [facility] CPT-05662 Level 3 Est. Patient 11:44:04 CDT Tu Landeros MD [facility] CPT-79613 Level 3 Est. Patient 11:03:20 PACKER Tu Landeros MD [facility] CPT-79497 Level 3 Est. Patient 11:03:14 PACKER Tu Landeros MD [facility] CPT-45427 Level 3 Est. Patient 12:42:49 CDT Tu Landeros MD [facility] CPT-38633 Level 3 Est. Patient 11:52:06 CDT Tu Landeros MD [facility] CPT-09767 Level 3 Est. Patient 13:58:11 CDT Tu Landeros MD [facility] CPT-67083 Level 3 Est. Patient 17:50:07 CDT Fab Morales DO [facility] CPT-80915 Level 3 Est. Patient 12:06:29 CDT Elvira Cervantes MD PhD [facility] CPT-83774 Level 3 Est. Patient 15:50:32 CDT Tu Landeros MD [facility] CPT-50265 Level 4 Est. Patient 16:08:29 CDT Tu Landeros MD [facility] CPT-11733 Level 3 Est. Patient 16:04:19 CDT Tu Landeros MD [facility] CPT-54356 Level 3 Est. Patient 11:22:30 PACKER Tu Landeros MD [facility] CPT-88079 Level 4 Est. Patient 16:24:02 PACKER Tu Landeros MD [facility] CPT-82949 Level 3 Est. Patient 17:21:23 PACKER Tu Landeros MD [facility] Procedures Code Procedure Name Date Entry Date Standard Description CPT-G0439 Subsequent Annual Wellness Exam 14:46:36 CDT CPT-75074 Shoulder, right, comp min 2V - XRAY USE ONLY 13:50:22 CDT CPT-G0009 Administration of Pneumococcal Vaccine 15:08:26 CDT CPT-51810 Prevnar 13 Intramuscular Suspension 15:08:26 CDT 10/08 CPT-G0439 Subsequent Annual Wellness Exam 14:29:22 CDT CPT-82735 Venipuncture Draw Fee 13:15:35 CDT CPT-47760 Magnesium - LAB USE ONLY 11:14:20 PACKER CPT-49595 Lipid - LAB USE ONLY 11:14:20 PACKER CPT-19535 HGBA1C - LAB USE ONLY 11:14:20 PACKER CPT-07100 CMP - LAB USE ONLY 11:14:19 PACKER CPT-47572 CBC - LAB USE ONLY 11:14:19 PACKER CPT-09211 Venipuncture Draw Fee 11:14:18 PACKER CPT-65395 First Vx - Ix admin for Medicare patients 16:46:52 CDT CPT-30504 Fluzone Preservative Free Intramuscular Suspension 16:46 :51 CDT CPT-28446 CBC - LAB USE ONLY 17:14:46 CDT CPT-09838 HGBA1C - LAB USE ONLY 17:14:46 CDT CPT-28524 Venipuncture Draw Fee 17:14:46 CDT CPT-G0438 Initial Annual Wellness Exam 14:13:04 CDT CPT-11040 Breathing Tx 10:06:54 PACKER CPT-26820 Postop F/U Visit 10:02:45 CDT CPT-LR Lesion Removal 09:02:56 CDT CPT-JTINJ Asp/Joint Injection 15:51:27 PACKER CPT-OV Office Visit 15:52:02 PACKER CPT-OV Office Visit 15:45:11 CDT CPT-000 Give Zostavax 14:09:06 CDT CPT-82060 Administration single or combination vaccine inc oral 15 :19:04 CDT CPT-47637 Zoster Vaccine (Zostavax) 15:19:04 CDT CPT-12865 Administration single or combination vaccine inc oral 20 :51:03 CDT CPT-80051 Influenza split virus > age 3 20:51:03 CDT CPT-40463 No Charge Offi Visit 14:52:03 CDT CPT-OV Office Visit 14:57:43 CDT CPT-OV Office Visit 15:22:32 CDT CPT-78515 Administration single or combination vaccine inc oral 11 :33:15 CDT CPT-95766 Influenza split virus > age 3 11:33:15 CDT
--- OUTSIDE RECORDS SUMMARY | 2018-04-25 11:50 | XMS REPORT | Clinical Summary ---
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 Acute upper respiratory infections of unspecified site [...] 1 GM ORAL CAPSULE 1 po qd [id number] ETHYL ESTERS 30355873457 Active Tu Landeros MD Active TRILIPIX 135 MG ORAL CAPSULE DELAYED RELEASE 1 q hs CHOLINE FENOFIBRATE 93164542923 No Longer Active Cynthia NUNOA Active TRIAMCINOLONE ACETONIDE 0.1 % EXTERNAL CREAM Apply to affected area TID for up to 2 weeks TRIAMCINOLONE ACETONIDE 89119787349 Active Tu Landeros MD Active INDOMETHACIN 50 MG ORAL CAPSULE 1 po TID PRN Pain INDOMETHACIN 33415777668 Active Tu Landeros MD Active PROMETHAZINE-CODEINE 6.25-10 MG/5ML ORAL SYRUP 5ml po q6hr PRN Cough PROMETHAZINE-CODEINE 24387744665 No Longer Active Tu Landeros MD Active AZITHROMYCIN 250 MG ORAL TABLET 2 po qd x 1, then 1 po qd x 4 AZITHROMYCIN 44177651971 No Longer Active Tu Landeros MD Active GUAIFENESIN ER 600 MG ORAL TABLET EXTENDED RELEASE 12 HOUR 1 twice a day as needed for congestion GUAIFENESIN 03375848561 No Longer Active Tu Landeros MD Active PREDNISONE 20 MG ORAL TABLET 2 po qd x 5 days PREDNISONE 07752507659 No Longer Active Tu Landeros MD Active FLUTICASONE PROPIONATE 50 MCG/ACT NASAL SUSPENSION 2 sprays/nostril qd PRN Congestion/Allergies FLUTICASONE PROPIONATE 79353932412 Active Tu Landeros MD Active NASONEX 50 MCG/ACT NASAL SUSPENSION 2 actuations in each nostril q day 07/15 MOMETASONE FUROATE 09642086963 No Longer Active Tu Landeros MD Active MAGNESIUM OXIDE 400 MG ORAL TABLET 1 po BID MAGNESIUM OXIDE 21824768809 Active Tu Landeros MD Active SIMVASTATIN 20 MG ORAL TABLET 0.5 po qHS SIMVASTATIN 26588848177 Active Tu Landeros MD Active DICLOFENAC SODIUM 75 MG ORAL TABLET DELAYED RELEASE 1 po BID PRN Pain DICLOFENAC SODIUM 69034478216 No Longer Active Tu Landeros MD Active GABAPENTIN 100 MG ORAL CAPSULE 1 po TID GABAPENTIN 37178618203 Active Tu Landeros MD Active DICLOFENAC SODIUM 50 MG ORAL TABLET DELAYED RELEASE 1 po BID PRN Pain DICLOFENAC SODIUM 52586664660 No Longer Active Tu Landeros MD Active CYCLOBENZAPRINE HCL 10 MG ORAL TABLET 1 po TID PRN Muscle Spasm CYCLOBENZAPRINE HCL 84303814903 No Longer Active Tu Landerso MD Active INVOKANA 100 MG ORAL TABLET 1 po qd CANAGLIFLOZIN 83488543937 Active José Luis Becerra MD Active GLIPIZIDE 5 MG ORAL TABLET 1 po qd GLIPIZIDE 41395705158 No Longer Active Tu Landeros MD Active VENLAFAXINE HCL 75 MG ORAL TABLET 1 po BID VENLAFAXINE HCL 92319230862 Active Tu Landeros MD Active GLIMEPIRIDE 1 MG ORAL TABLET 1 po qd GLIMEPIRIDE 22612651350 No Longer Active Tu Landeros MD Active TRUE METRIX BLOOD GLUCOSE TEST IN VITRO STRIP Test blood sugar BID Dx: E11.9 GLUCOSE BLOOD 13149590682 Active Tu Landeros MD Active TRUE METRIX AIR GLUCOSE METER w/Device KIT Test blood glucose BID Dx: E11.9 BLOOD GLUCOSE MONITORING SUPPL 26952348420 Active Tu Landeros MD Active TRUETEST TEST IN VITRO STRIP test blood sugar twice daily. DX 250.0 GLUCOSE BLOOD 39757324695 No Longer Active Mirna Stanley LPN Active TRUEDRAW LANCING DEVICE test blood sugar twice daily dx: 250.00 LANCET DEVICES 44003001006 No Longer Active Mirna Stanley LPN Active ENALAPRIL MALEATE 20 MG ORAL TABLET 2 po qd ENALAPRIL MALEATE 97859880487 Active Tu Landeros MD Active SUPER B COMPLEX/VITAMIN C ORAL TABLET 1 qd B COMPLEX- C 17978002997 No Longer Active Tu Landeros MD Active ASPIRIN EC 81 MG ORAL TABLET DELAYED RELEASE 1 po qd ASPIRIN 97538993738 Active Tu Landeros MD Active GLUCOSAMINE 500 MG TABS 2 po qd GLUCOSAMINE Active Tu Landeros MD Active FISH OIL 1000 MG ORAL CAPSULE 1 po qd OMEGA-3 FATTY ACIDS 10967347900 Active Tu Landeros MD Active METFORMIN HCL 1000 MG ORAL TABLET 1 po BID METFORMIN HCL 28479904932 Active Tu Landeros MD Active KLOR-CON 10 10 MEQ ORAL TABLET EXTENDED RELEASE 2 po qd POTASSIUM CHLORIDE 13463254515 Active Tu Landeros MD Active FUROSEMIDE 40 MG ORAL TABLET 1 po qd FUROSEMIDE 57117399155 Active Tu Landeros MD Active REQUIP 2 MG ORAL TABLET 1 po qHS PRN Restless legs ROPINIROLE HCL 51797958351 Active Tu Landeros MD Active REQUIP 2 MG ORAL TABLET Take one tablet at bedtime prn ROPINIROLE HCL 12695294021 No Longer Active Tu Landeros MD Active VENTOLIN HFA 108 (90 Base) MCG/ACT INHALATION AEROSOL SOLUTION 1-2 puffs every 4 hours if needed for cough/congestion ALBUTEROL SULFATE 85648188937 No Longer Active Ambika Aden APRN Active ZITHROMAX 250 MG ORAL TABLET 2 po today, then 1 po q days 2-5 AZITHROMYCIN 87320319592 No Longer Active Miranda Farah APRN Active FLONASE 50 MCG/ACT NASAL SUSPENSION 1 spray each nostril twice daily until bottle empty FLUTICASONE PROPIONATE 91118980913 No Longer Active Tu Landeros MD Active COLACE 100 MG ORAL CAPSULE 1 po BID PRN Constipation DOCUSATE SODIUM 57298338578 Active Tu Landeros MD Active TRUERESULT BLOOD GLUCOSE w/Device KIT test blood sugar twice daily dx 250.00 BLOOD GLUCOSE MONITORING SUPPL 83060336430 No Longer Active Tu Landeros MD Active TRUEDRAW LANCING DEVICE Test twice a day dx 250.0 LANCET DEVICES 76528982456 No Longer Active Tu Landeros MD Active PREDNISONE 20 MG ORAL TABLET 2 tablets once daily for 2 days, then 1 tablet once daily for 2 days PREDNISONE 76270899785 No Longer Active Tu Landeros MD Active DICLOFENAC SODIUM 50 MG ORAL TABLET DELAYED RELEASE 1 tablet by mouth three times a day as needed DICLOFENAC SODIUM 26295977329 No Longer Active Fab Morales DO Active EMBRACE BLOOD GLUCOSE TEST IN VITRO STRIP test blood sugar twice daily DX 250.0 GLUCOSE BLOOD 55554713304 No Longer Active Tu Landeros MD Active TRUETEST TEST IN VITRO STRIP test blood sugar three times daily dx: 250.00 GLUCOSE BLOOD 93944167621 No Longer Active Suze VOGEL Active TRUERESULT BLOOD GLUCOSE w/Device KIT use to test blood sugar tid dx: 250.00 BLOOD GLUCOSE MONITORING SUPPL 68046139281 No Longer Active Suzebianca VOGEL Active ALIGN 4 MG ORAL CAPSULE 1 tid PROBIOTIC PRODUCT 99062463483 No Longer Active Shaun Sy MD Active CIPRO 500 MG ORAL TABLET 1 bid x 14 days start 09-28-13 CIPROFLOXACIN HCL 01281780990 No Longer Active Shaun Sy MD Active TRAMADOL HCL 50 MG ORAL TABLET 1-2 tablets every 6 hours as needed for pain TRAMADOL HCL 75319239047 Active Tu Landeros MD Active HYDROCODONE-ACETAMINOPHEN 5-325 MG ORAL TABLET 1 tab by mouth every 6 hours as needed for pain HYDROCODONE-ACETAMINOPHEN 72467407640 No Longer Active Tu Landeros MD Active OMEPRAZOLE 20 MG ORAL CAPSULE DELAYED RELEASE 1 po q a.m. OMEPRAZOLE 10490381367 Active Tu Landeros MD Active GABAPENTIN 100 MG ORAL CAPSULE 1 po bid GABAPENTIN 32540358796 No Longer Active Tu Landeros MD Active B-12 100 MCG ORAL TABLET Take one by mouth daily CYANOCOBALAMIN 82528028472 No Longer Active Tu Landeros MD Active BACTRIM DS 800-160 MG ORAL TABLET 1 bid x 14 day start 09-28-13 SULFAMETHOXAZOLE-TRIMETHOPRIM 06799172683 No Longer Active Tu Landeros MD Active CARVEDILOL 12.5 MG ORAL TABLET 1 po BID CARVEDILOL 41678143661 Active Tu Landeros MD Active FENOFIBRATE 145 MG ORAL TABLET 1 po qd FENOFIBRATE 71744436923 No Longer Active JASPREET Perez Active OMEPRAZOLE 20 MG ORAL TABLET DELAYED RELEASE 1 PO 30 MIN BEFORE 1ST MEAL 2010 OMEPRAZOLE 94130405513 No Longer Active JASPREET Perez Active SIMVASTATIN 40 MG ORAL TABLET Take one by mouth daily SIMVASTATIN 75756456195 No Longer Active JASPREET Perez Active VENLAFAXINE HCL 75 MG ORAL TABLET 1 po BID VENLAFAXINE HCL 82772330111 No Longer Active JASPREET Perez Active CIPRO 500 MG ORAL TABLET 1 tablet by mouth twice daily CIPROFLOXACIN HCL 61062405446 No Longer Active Tu Landeros MD Active VENLAFAXINE HCL 37.5 MG ORAL TABLET 1 po BID VENLAFAXINE HCL 27689923727 No Longer Active Suze NUNOA Active LAMISIL 250 MG ORAL TABLET 1 po qd TERBINAFINE HCL 29830883497 No Longer Active Tu Landeros MD Active LORTAB 5-500 MG ORAL TABLET 1/2 to 1 tablet by mouth every 4 hours as needed for pain HYDROCODONE-ACETAMINOPHEN 13056279436 No Longer Active Tu Landeros MD Active HYDROCODONE-ACETAMINOPHEN 5-500 MG ORAL TABLET take one po Q 4-6 hours prn HYDROCODONE-ACETAMINOPHEN 77709850080 No Longer Active Tu Landeros MD Active BACTRIM DS 800-160 MG ORAL TABLET 1 po BID x 7 days SULFAMETHOXAZOLE-TRIMETHOPRIM 72428542379 No Longer Active Tu Landeros MD Active VENLAFAXINE HCL 75 MG ORAL TABLET 1 po BID VENLAFAXINE HCL 78083622565 No Longer Active Elvira Cervantes MD PhD Active TRAMADOL HCL 50 MG ORAL TABLET 1 tablets every 6 hours as needed for pain TRAMADOL HCL 62880040308 No Longer Active Tu Landeros MD Active ACCU-CHED[place]son FASTCLIX LANCETS Use to check bloodsugar three times daily as needed LANCETS 71613669721 No Longer Active Tu Landeros MD Active ACCU-CHED[place]son KEYOAN PLUS IN VITRO STRIP Use for testing bloodsugars three times daily as needed GLUCOSE BLOOD 98433864642 No Longer Active Tu Landeros MD Active ACCU-CHEK KEYONA PLUS w/Device KIT Use for testing bloodsugars three times daily as needed BLOOD GLUCOSE MONITORING SUPPL 57434728174 No Longer Active Tu Landeros MD Active SPIRONOLACTONE 25 MG ORAL TABLET 0.5 tablet by mouth daily 09/09 SPIRONOLACTONE 77049810273 No Longer Active Tu Landeros MD Active ALPRAZOLAM 0.5 MG ORAL TABLET 1 tab every 6hrs as needed ALPRAZOLAM 07860302067 No Longer Active Tu Landeros MD Active AUGMENTIN 875-125 MG ORAL TABLET 1 tab by mouth twice daily with food AMOXICILLIN-POT CLAVULANATE 07778301234 No Longer Active Tu Landeros MD Active PREDNISONE 20 MG ORAL TABLET 2 tabs daily for 3 days, 1 tab daily for 3 days, 1/2 tab daily for 2 days PREDNISONE 73068034658 No Longer Active Tu Landeros MD Active XANAX 0.5 MG ORAL TABLET 1 tablet every 6 hrs prn ALPRAZOLAM 71425962748 No Longer Active Tu Landeros MD Active PREDNISONE 20 MG ORAL TABLET 2 tabs daily for 3 days, 1 tab daily for 3 days, 1/2 tab daily for 2 days PREDNISONE 13416976030 No Longer Active Tu Landeros MD Active TRIAMCINOLONE ACETONIDE 0.1 % EXTERNAL OINTMENT Apply to affected areas TID for up to 2 weeks TRIAMCINOLONE ACETONIDE 05628399453 No Longer Active Tu Landeros MD Active LORTAB 5-500 MG ORAL TABLET 1/2 to 1 tablet by mouth every 4 hours as needed for pain HYDROCODONE-ACETAMINOPHEN 27311200520 No Longer Active Tu Landeros MD Active MULTIVITAMINS TABS Take one by mouth daily MULTIPLE VITAMIN 89384113941 No Longer Active Tu Landeros MD Active MELATONIN 5 MG ORAL TABLET Take one by mouth daily MELATONIN 50674809418 No Longer Active Tu Landeros MD Active SOMA 350 MG ORAL TABLET 1 po q 6 hours prn spasm CARISOPRODOL 99623326329 No Longer Active Tu Landeros MD Active MECLIZINE HCL 25 MG ORAL TABLET CHEWABLE 1 four times a day as needed for dizziness MECLIZINE HCL 65781393856 No Longer Active Fab Morales DO Active ANGEL BREEZE 2 TEST IN VITRO DISK test tid prn GLUCOSE BLOOD 58263381922 No Longer Active Negra Scott RN Active REGLAN 10 MG ORAL TABLET 1 po TID PRN Nausea METOCLOPRAMIDE HCL 22360385634 No Longer Active Tu Landeros MD Active METFORMIN HCL 500 MG ORAL TABLET 1 PO BID METFORMIN HCL 25295788051 No Longer Active Tu Landeros MD Active AMBIEN 10 MG ORAL TABLET 1 tab by mouth at bedtime as needed for sleep 06/10 ZOLPIDEM TARTRATE 02717611876 No Longer Active Tu Landeros MD Active FLUOXETINE HCL 40 MG ORAL CAPSULE 1 po q day FLUOXETINE HCL 49928915447 No Longer Active Mayra [place] Active TRILIPIX 135 MG ORAL CAPSULE DELAYED RELEASE 1 po qd CHOLINE FENOFIBRATE 33589874431 No Longer Active Tu Landeros MD Active AMBIEN 10 MG ORAL TABLET 1 tab by mouth at bedtime as needed for sleep 06/10 AMBIEN 10 MG ORAL TABLET 920443 ZOLPIDEM TARTRATE Inactive METFORMIN HCL 500 MG ORAL TABLET 1 PO BID METFORMIN HCL 500 MG ORAL TABLET 747228 METFORMIN HCL Inactive REGLAN 10 MG ORAL TABLET 1 po TID PRN Nausea REGLAN 10 MG ORAL TABLET 248529 METOCLOPRAMIDE HCL Inactive MECLIZINE HCL 25 MG ORAL TABLET CHEWABLE 1 four times a day as needed for dizziness MECLIZINE HCL 25 MG ORAL TABLET CHEWABLE 486748 MECLIZINE HCL Inactive SOMA 350 MG ORAL TABLET 1 po q 6 hours prn spasm SOMA 350 MG ORAL TABLET 408592 CARISOPRODOL Inactive MELATONIN 5 MG ORAL TABLET Take one by mouth daily MELATONIN 5 MG ORAL TABLET 948030 MELATONIN Inactive MULTIVITAMINS TABS Take one by mouth daily MULTIVITAMINS TABS MULTIPLE VITAMIN Inactive LORTAB 5-500 MG ORAL TABLET 1/2 to 1 tablet by mouth every 4 hours as needed for pain LORTAB 5-500 MG ORAL TABLET HYDROCODONE- ACETAMINOPHEN Inactive XANAX 0.5 MG ORAL TABLET 1 tablet every 6 hrs prn XANAX 0.5 MG ORAL TABLET 999656 ALPRAZOLAM Inactive AUGMENTIN 875-125 MG ORAL TABLET 1 tab by mouth twice daily with food AUGMENTIN 875-125 MG ORAL TABLET 289498 AMOXICILLIN-POT CLAVULANATE Inactive ALPRAZOLAM 0.5 MG ORAL TABLET 1 tab every 6hrs as needed ALPRAZOLAM 0.5 MG ORAL TABLET 967464 ALPRAZOLAM Inactive SPIRONOLACTONE 25 MG ORAL TABLET 0.5 tablet by mouth daily 09/09 SPIRONOLACTONE 25 MG ORAL TABLET 580224 SPIRONOLACTONE Inactive ACCU-CHEK KEYONA PLUS w/Device KIT [...] times daily as needed ACCU-CHEK FASTCLIX LANCETS 36954670971 LANCETS Inactive TRAMADOL HCL 50 MG ORAL TABLET 1 tablets every 6 hours as needed for pain TRAMADOL HCL 50 MG ORAL TABLET 356365 TRAMADOL HCL Inactive VENLAFAXINE HCL 75 MG ORAL TABLET 1 po BID VENLAFAXINE HCL 75 MG ORAL TABLET 271959 VENLAFAXINE HCL Inactive HYDROCODONE-ACETAMINOPHEN 5-500 MG ORAL TABLET take one po Q 4-6 hours prn HYDROCODONE-ACETAMINOPHEN 5-500 MG ORAL TABLET HYDROCODONE-ACETAMINOPHEN Inactive LORTAB 5-500 MG ORAL TABLET 1/2 to 1 tablet by mouth every 4 hours as needed for pain LORTAB 5-500 MG ORAL TABLET HYDROCODONE- ACETAMINOPHEN Inactive LAMISIL 250 MG ORAL TABLET 1 po qd LAMISIL 250 MG ORAL TABLET 565802 TERBINAFINE HCL Inactive VENLAFAXINE HCL 37.5 MG ORAL TABLET 1 po BID VENLAFAXINE HCL 37.5 MG ORAL TABLET 127997 VENLAFAXINE HCL Inactive CIPRO 500 MG ORAL TABLET 1 tablet by mouth twice daily CIPRO 500 MG ORAL TABLET 590551 CIPROFLOXACIN HCL Inactive VENLAFAXINE HCL 75 MG ORAL TABLET 1 po BID VENLAFAXINE HCL 75 MG ORAL TABLET 937994 VENLAFAXINE HCL Inactive SIMVASTATIN 40 MG ORAL TABLET Take one by mouth daily SIMVASTATIN 40 MG ORAL TABLET 007160 SIMVASTATIN Inactive OMEPRAZOLE 20 MG ORAL TABLET DELAYED RELEASE 1 PO 30 MIN BEFORE 1ST MEAL 2010 OMEPRAZOLE 20 MG ORAL TABLET DELAYED RELEASE 488243 OMEPRAZOLE Inactive FENOFIBRATE 145 MG ORAL TABLET 1 po qd FENOFIBRATE 145 MG ORAL TABLET 498336 FENOFIBRATE Inactive BACTRIM DS 800-160 MG ORAL TABLET 1 bid x 14 day start 09-28-13 BACTRIM DS 800-160 MG ORAL TABLET 337609 SULFAMETHOXAZOLE- TRIMETHOPRIM Inactive B-12 100 MCG ORAL TABLET Take one by mouth daily B-12 100 MCG ORAL TABLET CYANOCOBALAMIN Inactive GABAPENTIN 100 MG ORAL CAPSULE 1 po bid GABAPENTIN 100 MG ORAL CAPSULE 321544 GABAPENTIN Inactive HYDROCODONE-ACETAMINOPHEN 5-325 MG ORAL TABLET 1 tab by mouth every 6 hours as needed for pain HYDROCODONE-ACETAMINOPHEN 5-325 MG ORAL TABLET 207982 HYDROCODONE-ACETAMINOPHEN Inactive CIPRO 500 MG ORAL TABLET 1 bid x 14 days start 814 CIPRO 500 MG ORAL TABLET 573378 CIPROFLOXACIN HCL Inactive ALIGN 4 MG ORAL [...] SODIUM 50 MG ORAL TABLET DELAYED RELEASE 118358 DICLOFENAC SODIUM Inactive PREDNISONE 20 MG ORAL TABLET 2 tablets once daily for 2 days, then 1 tablet once daily for 2 days PREDNISONE 20 MG ORAL TABLET 607799 PREDNISONE Inactive TRUEDRAW LANCING DEVICE Test twice a day dx 250.0 TRUEDRAW LANCING DEVICE LANCET DEVICES Inactive TRUERESULT BLOOD GLUCOSE w/Device KIT test blood sugar twice daily dx 250.00 TRUERESULT BLOOD GLUCOSE w/Device KIT BLOOD GLUCOSE MONITORING SUPPL Inactive FLONASE 50 MCG/ACT NASAL SUSPENSION 1 spray each nostril twice daily until bottle empty FLONASE 50 MCG/ACT NASAL SUSPENSION 2421164 FLUTICASONE PROPIONATE Inactive VENTOLIN HFA 108 (90 Base) MCG/ACT INHALATION AEROSOL SOLUTION 1-2 puffs every 4 hours if needed for cough/congestion VENTOLIN HFA 108 (90 Base) MCG/ACT INHALATION AEROSOL SOLUTION ALBUTEROL SULFATE Inactive REQUIP 2 MG ORAL TABLET Take one tablet at bedtime prn REQUIP 2 MG ORAL TABLET 016237 ROPINIROLE HCL Inactive SUPER B COMPLEX/VITAMIN C ORAL TABLET 1 qd SUPER B COMPLEX/VITAMIN C ORAL TABLET 71495554560 B COMPLEX-C Inactive TRUEDRAW LANCING DEVICE test blood sugar twice daily dx: 250.00 TRUEDRAW LANCING DEVICE LANCET DEVICES Inactive TRUETEST TEST IN VITRO STRIP test blood sugar twice daily. DX 250.0 TRUETEST TEST IN VITRO STRIP GLUCOSE BLOOD Inactive CYCLOBENZAPRINE HCL 10 MG ORAL TABLET 1 po TID PRN Muscle Spasm CYCLOBENZAPRINE HCL 10 MG ORAL TABLET 335709 CYCLOBENZAPRINE HCL Inactive DICLOFENAC SODIUM 50 MG ORAL TABLET DELAYED RELEASE 1 po BID PRN Pain DICLOFENAC SODIUM 50 MG ORAL TABLET DELAYED RELEASE 436743 DICLOFENAC SODIUM Inactive DICLOFENAC SODIUM 75 MG ORAL TABLET DELAYED RELEASE 1 po BID PRN Pain DICLOFENAC SODIUM 75 MG ORAL TABLET DELAYED RELEASE 803558 DICLOFENAC SODIUM Inactive NASONEX 50 MCG/ACT NASAL SUSPENSION 2 actuations in each nostril q day 07/15 NASONEX 50 MCG/ACT NASAL SUSPENSION 6975359 MOMETASONE FUROATE Inactive GUAIFENESIN ER 600 MG ORAL TABLET EXTENDED RELEASE 12 HOUR 1 twice a day as needed for congestion GUAIFENESIN ER 600 MG ORAL TABLET EXTENDED RELEASE 12 HOUR GUAIFENESIN Inactive AZITHROMYCIN 250 MG ORAL TABLET 2 po qd x 1, then 1 po qd x 4 AZITHROMYCIN 250 MG ORAL TABLET 413477 AZITHROMYCIN Inactive PROMETHAZINE-CODEINE 6.25-10 MG/5ML ORAL SYRUP 5ml po q6hr PRN Cough PROMETHAZINE-CODEINE 6.25-10 MG/5ML ORAL SYRUP 280930 PROMETHAZINE-CODEINE Inactive TRILIPIX 135 MG ORAL CAPSULE DELAYED RELEASE 1 q hs TRILIPIX 135 MG ORAL CAPSULE DELAYED RELEASE 948093 CHOLINE FENOFIBRATE Inactive TRIAMCINOLONE ACETONIDE 0.1 % EXTERNAL OINTMENT Apply to affected areas TID for up to 2 weeks TRIAMCINOLONE ACETONIDE 0.1 % EXTERNAL OINTMENT 6437164 TRIAMCINOLONE ACETONIDE Inactive PREDNISONE 20 MG ORAL TABLET 2 tabs daily for 3 days, 1 tab daily for 3 days, 1/2 tab daily for 2 days PREDNISONE 20 MG ORAL TABLET 979993 PREDNISONE Inactive PREDNISONE 20 MG ORAL TABLET 2 tabs daily for 3 days, 1 tab daily for 3 days, 1/2 tab daily for 2 days PREDNISONE 20 MG ORAL TABLET 201232 PREDNISONE Inactive BACTRIM DS 800-160 MG ORAL TABLET 1 po BID x 7 days BACTRIM DS 800-160 MG ORAL TABLET 905712 SULFAMETHOXAZOLE-TRIMETHOPRIM Inactive ZITHROMAX 250 MG ORAL TABLET 2 po today, then 1 po q days 2-5 ZITHROMAX 250 MG ORAL TABLET 852218 AZITHROMYCIN Inactive PREDNISONE 20 MG ORAL TABLET 2 po qd x 5 days PREDNISONE 20 MG ORAL TABLET 243155 PREDNISONE Inactive Advance Directives Directive Description Start Date DISCUSSED WITH PATIENT -- NO DECISION MADE Immunizations Vaccine Administration Date Value Standard Description Seasonal influenza vaccine, injectable, containing preservative, for > 3 years old (Afluria, FluLaval, Fluzone, Fluvirin, Fluarix, Agriflu(>=18 yo)) Fluzone (>3 yrs.) [[id number]] Influenza, seasonal, injectable influenza immunization (Flu Vax) has been administered 02/22/2012 influenza virus vaccine, unspecified formulation Seasonal influenza vaccine, injectable, containing preservative, for > 3 years old (Afluria, FluLaval, Fluzone, Fluvirin, Fluarix, Agriflu(>=18 yo)) Fluzone (>3 yrs.) [[id number]] Influenza, seasonal, injectable Vital Signs Date Name [...] temperature weight E&M 297.8 [lb_av] Weight Measured blood pressure, diastolic 49 mm[Hg] BP ac blood pressure, systolic 125 mm[Hg] BP sys height E&M 60.25 [in_us] Bdy height pulse rate E&M 62 /min Heart rate temperature E&M 98.1 [degF] Body temperature weight E&M 298.31 [lb_av] Weight Measured Diagnostic Results Date Name Value Unit Range Description Lab Report: CBC, Comp. Metabolic Panel, HGBA1C, Lipid Panel, Magnesium, ... - Chemistry sodium, serum 141 mmol/L 526-623 1308/01/16 carbon dioxide, venous blood 28.3 mmol/L 21.0-32.0 [...] 6.7 % 4.3-6.0 cholesterol, serum 106 mg/dL 925-527 1957/01/16 triglyceride, serum, fasting 173 mg/dL 30-200 HDL [...] 6.4 % 4.3-6.0 sodium, serum 142 mmol/L 853-497 6601/07/16 carbon dioxide, venous blood 29.4 mmol/L 21.0-32.0 potassium, serum 4.7 mmol/L 3.5-5.2 chloride, serum 106 mmol/L 98-107 blood glucose 130 mg/dL 65-95 urea nitrogen, blood 19 mg/dL 7-18 creatinine, serum 0.95 mg/dL 0.60-1.30 alanine aminotransferase (SGPT), serum 36 U/L 12-78 aspartate aminotransferase (SGOT), serum 28 U/L 15-37 calcium, serum 9.1 mg/dL 8.5-10.1 bilirubin, serum, total 0.20 mg/dL 0.00-1.00 Lab Report: HGBA1C - Chemistry hemoglobin A1C, blood, as % of total hemoglobin 6.5 % 4.3-6.0 Lab Report: Lipid Panel - Chemistry cholesterol, serum 170 mg/dL 214-186 5579/07/16 triglyceride, serum, fasting 266 mg/dL 30-200 HDL cholesterol, serum 42 mg/dL 32-60 LDL cholesterol, serum 75 mg/dL 0-130 Encounters Code Encounter Date Provider Facility [id number] Level 4 Est. Patient 14:46:36 CDT Tu Landeros MD [facility] CPT-37659 Level 3 Est. Patient 10:28:05 CDT Tu Landeros MD [facility] CPT-04641 Level 3 Est. Patient 09:11:32 CDT Tu Landeros MD [facility] CPT-83306 Level 3 Est. Patient 10:13:19 MILL FEEDER Lesli Kellogg APRN [facility] CPT-61079 Level 4 Est. Patient 13:42:02 MILL FEEDER Tu Landeros MD [facility] CPT-44169 Level 3 Est. Patient 14:20:36 CDT Tu Landeros MD [facility] CPT-96212 Level 4 Est. Patient 14:28:34 CDT Tu Landeros MD [facility] CPT-94689 Level 3 Est. Patient 13:33:09 CDT Tu Landeros MD [facility] CPT-26364 Level 4 Est. Patient 14:29:21 CDT Tu Landeros MD [facility] CPT-07629 Level 4 Est. Patient 09:08:17 MILL FEEDER Tu Landeros MD [facility] CPT-08316 Level 4 Est. Patient 14:40:19 CDT Tu Landeros MD [facility] CPT-31795 Level 4 Est. Patient 14:06:04 MILL FEEDER Tu Landeros MD [facility] CPT-95270 Level 3 Est. Patient 14:05:18 MILL FEEDER Tu Landeros MD [facility] CPT-16604 Level 3 Est. Patient 10:06:54 M[employer] FEEDER Miranda Farah APRN [facility] CPT-28566 Level 4 Est. Patient 13:50:18 MILL FEEDER Tu Landeros MD [facility] CPT-19895 Level 3 Est. Patient 10:30:04 CDT Tu Landeros MD [facility] CPT-73636 Level 4 Est. Patient 11:03:38 CDT Tu Landeros MD [facility] CPT-58615 Level 3 Est. Patient 10:20:44 CDT Fab Morales DO [facility] CPT-55582 Level 4 Est. Patient 14:38:57 CDT Tu Landeros MD [facility] CPT-30041 Level 4 Est. Patient 14:27:39 MILL FEEDER Tu Landeros MD [facility] CPT-58266 Level 4 Est. Patient 09:45:25 CDT Tu Landeros MD [facility] CPT-52210 Level 4 Est. Patient 09:05:20 MILL FEEDER Tu Landeros MD [facility] CPT-50077 Level 4 Est. Patient 14:09:06 CDT Tu Landeros MD [facility] CPT-06463 Level 3 Est. Patient 13:36:54 CDT Tu Landeros MD [facility] CPT-09083 Level 3 Est. Patient 08:59:14 CDT Tu Landeros MD [facility] CPT-19390 Level 3 Est. Patient 13:48:35 CDT Fab Morales DO [facility] CPT-73532 Level 4 Est. Patient 10:05:48 CDT Tu Landeros MD [facility] CPT-88005 Level 3 Est. Patient 13:38:42 CDT Marek BANKS [facility] CPT-10656 Level 5 Est. Patient 08:08:39 CDT Jerrica FRANCIS [facility] CPT-09679 Level 4 Est. Patient 14:23:38 CDT Tu Landeros MD [facility] CPT-22893 Level 3 Est. Patient 11:44:04 CDT Tu Landeros MD [facility] CPT-08669 Level 3 Est. Patient 11:03:20 MILL FEEDER Tu Landeros MD [facility] CPT-32010 Level 3 Est. Patient 11:03:14 MILL FEEDER Tu Landeros MD [facility] CPT-35430 Level 3 Est. Patient 12:42:49 CDT Tu Landeros MD [facility] CPT-81645 Level 3 Est. Patient 11:52:06 CDT Tu Landeros MD [facility] CPT-57517 Level 3 Est. Patient 13:58:11 CDT Tu Landeros MD [facility] CPT-69716 Level 3 Est. Patient 17:50:07 CDT Fab Morales DO [facility] CPT-56725 Level 3 Est. Patient 12:06:29 CDT Elvira Cervantes MD PhD [facility] CPT-52427 Level 3 Est. Patient 15:50:32 CDT Tu Landeros MD [facility] CPT-22745 Level 4 Est. Patient 16:08:29 CDT Tu Landeros MD [facility] CPT-85632 Level 3 Est. Patient 16:04:19 CDT Tu Landeros MD [facility] CPT-29056 Level 3 Est. Patient 11:22:30 [employer] Tu Landeros MD [facility] CPT-03035 Level 4 Est. Patient 16:24:02 [employer] Tu Landeros MD [facility] CPT-36107 Level 3 Est. Patient 17:21:23 [employer] Tu Landeros MD [facility] Procedures Code Procedure Name Date Entry Date Standard Description CPT-G0439 Subsequent Annual Wellness Exam 14:46:36 CDT CPT-36876 Shoulder, right, comp min 2V - XRAY USE ONLY 13:50:22 CDT CPT-G0009 Administration of Pneumococcal Vaccine 15:08:26 CDT CPT-44466 Prevnar 13 Intramuscular Suspension 15:08:26 CDT 10/08 CPT-G0439 Subsequent Annual Wellness Exam 14:29:22 CDT CPT-28220 Venipuncture Draw Fee 13:15:35 CDT CPT-00468 Magnesium - LAB USE ONLY 11:14:20 [employer] CPT-50032 Lipid - LAB USE ONLY 11:14:20 [employer] CPT-16145 HGBA1C - LAB USE ONLY 11:14:20 [employer] CPT-27029 CMP - LAB USE ONLY 11:14:19 [employer] CPT-51491 CBC - LAB USE ONLY 11:14:19 [employer] CPT-09424 Venipuncture Draw Fee 11:14:18 [employer] CPT-30630 First Vx - Ix admin for Medicare patients 16:46:52 CDT CPT-84333 Fluzone Preservative Free Intramuscular Suspension 16:46 :51 CDT CPT-17135 CBC - LAB USE ONLY 17:14:46 CDT CPT-94383 HGBA1C - LAB USE ONLY 17:14:46 CDT CPT-88355 Venipuncture Draw Fee 17:14:46 CDT CPT-G0438 Initial Annual Wellness Exam 14:13:04 CDT CPT-02515 Breathing Tx 10:06:54 [employer] CPT-93260 Postop F/U Visit 10:02:45 CDT CPT-LR Lesion Removal 09:02:56 CDT CPT-JTINJ Asp/Joint Injection 15:51:27 [employer] CPT-OV Office Visit 15:52:02 [employer] CPT-OV Office Visit 15:45:11 CDT CPT-000 Give Zostavax 14:09:06 CDT CPT-33965 Administration single or combination vaccine inc oral 15 :19:04 CDT CPT-41048 Zoster Vaccine (Zostavax) 15:19:04 CDT CPT-16828 Administration single or combination vaccine inc oral 20 :51:03 CDT CPT-77515 Influenza split virus > age 3 20:51:03 CDT CPT-48408 No Charge Offi Visit 14:52:03 CDT CPT-OV Office Visit 14:57:43 CDT CPT-OV Office Visit 15:22:32 CDT CPT-37771 Administration single or combination vaccine inc oral 11 :33:15 CDT CPT-74207 Influenza split virus > age 3 11:33:15 CDT
--- OUTSIDE RECORDS SUMMARY | 2018-04-25 11:52 | XMS REPORT | Clinical Summary ---
Author Author Admin, SACHI Organization [facility] Address Unknown Phone Unavailable Allergies, Adverse Reactions, [...] hypertension LEG CRAMPS, NOCTURNAL 729.82 Resolved Tu Landerso MD Cramp of limb FREQUENCY, URINARY 788.41 Correction Elvira Cervantes MD PhD Urinary frequency FEVER UNSPECIFIED 780.60 Resolved Tu Landeros MD Fever, unspecified MUSCLE SPASM 728.85 Resolved Tu Landeros MD Spasm of muscle SCIATICA 724.3 Resolved uT Landeros MD Sciatica SHOULDER PAIN, LEFT 719.41 [...] of magnesium metabolism URI 465.9 Inactive Lesli Fatumashahid SALES [employer] Acute upper respiratory infections of unspecified site Upper respiratory infection, viral 465.9 Resolved Tu Landeros MD Acute upper respiratory infections of unspecified site Body Mass Index 50.0-59.9 Adult Active Tu Landeros MD Body Mass Index 50.0-59.9, adult Wrist pain, left 719.43 Active uT Landeros MD Pain in joint involving forearm POSTMENOPAUSAL BLEEDING ICD-627.1 Inactive Elvira Cervantes MD PhD HEALTH SCREENING ICD-V70.0 Inactive Elvira Cervantes MD PhD 2011 GASTROENTERITIS ICD-558.9 Inactive Tu Landeros MD DIZZINESS ICD-780.4 Inactive Tu Landeros MD INSOMNIA, PERSISTENT ICD-307.42 Inactive Tu Landeros MD LEG CRAMPS, NOCTURNAL ICD-729.82 Inactive Tu Landeros MD FREQUENCY, URINARY ICD-788.41 Inactive Elvira Cervantes MD PhD FEVER UNSPECIFIED ICD-780.60 Inactive Tu Landeros MD MUSCLE SPASM ICD-728.85 Inactive Tu Landeros MD BENIGN PAROXYSMAL POSITIONAL VERTIGO ICD-386.11 Inactive Tu Landeros MD PARESTHESIA ICD-782.0 Inactive Tu Landeros MD RASH AND OTHER NONSPECIFIC SKIN ERUPTION ICD-782.1 Inactive Tu Landeros MD SCIATICA ICD-724.3 Inactive Tu Landeros MD 2012 SHOULDER PAIN, LEFT ICD-719.41 Tessa Landeros MD ARTHRITIS ICD-716.90 Inactive Tu Landeros MD KNEE PAIN ICD-719.46 Inactive Tu Landeros MD FATIGUE ICD-780.79 Inactive Tu Landeros MD 2012 CARPAL TUNNEL SYNDROME ICD-354.0 Tessa Landeros MD LOCALIZED SUPERFICIAL SWELLING MASS OR LUMP ICD-782.2 Tessa Landeros MD CONTUSION OF UNSPECIFIED SITE ICD-924.9 Inactive Tu Landeros MD PRESSURE ULCER UNSPECIFIED SITE ICD-707.00 Tessa Landeros MD Open wound of abdominal wall, anterior, complicated ICD-879.3 Tessa Landeros MD Upper respiratory infection, viral ICD-465.9 Tessa Sy MD Open wound of other and unspecified parts of trunk, complicated ICD-879.7 Tessa Landeros MD Knee pain, left, acute ICD-719.46 Tessa Landeros MD ONYCHOMYCOSIS ICD-110.1 Tessa Landeros MD Ear pain, bilateral ICD-388.70 Tessa Landeros MD Osteoarthritis ICD-715.90 Inactive Tu Landeros MD Sebaceous cyst ICD-706.2 Inactive Tu Landeros MD Upper respiratory infection, viral ICD-465.9 Inactive Tu Landeros MD Sinusitis - acute ICD-461.9 Inactive Tu Landeros MD Leg pain, left ICD-729.5 Inactive Tu Landeros MD Hot flashes ICD-627.2 Inactive Tu Landeros MD Vision impairment, both [...] 1 GM ORAL CAPSULE 1 po qd [id number] ETHYL ESTERS 40218885587 Active Tu Landeros MD Active TRILIPIX 135 MG ORAL CAPSULE DELAYED RELEASE 1 q hs CHOLINE FENOFIBRATE 41068556799 No Longer Active Cynthia VOGEL Active TRIAMCINOLONE ACETONIDE 0.1 % EXTERNAL CREAM Apply to affected area TID for up to 2 weeks TRIAMCINOLONE ACETONIDE 37060441475 Active Tu Landeros MD Active INDOMETHACIN 50 MG ORAL CAPSULE 1 po TID PRN Pain INDOMETHACIN 89744401153 Active Tu Landeros MD Active PROMETHAZINE-CODEINE 6.25-10 MG/5ML ORAL SYRUP 5ml po q6hr PRN Cough PROMETHAZINE-CODEINE 14384060954 No Longer Active Tu Landeros MD Active AZITHROMYCIN 250 MG ORAL TABLET 2 po qd x 1, then 1 po qd x 4 AZITHROMYCIN 60377474636 No Longer Active Tu Landeros MD Active GUAIFENESIN ER 600 MG ORAL TABLET EXTENDED RELEASE 12 HOUR 1 twice a day as needed for congestion GUAIFENESIN 75700101581 No Longer Active Tu Landeros MD Active PREDNISONE 20 MG ORAL TABLET 2 po qd x 5 days PREDNISONE 66735589044 No Longer Active Tu Landeros MD Active FLUTICASONE PROPIONATE 50 MCG/ACT NASAL SUSPENSION 2 sprays/nostril qd PRN Congestion/Allergies FLUTICASONE PROPIONATE 18596153029 Active Tu Landeros MD Active NASONEX 50 MCG/ACT NASAL SUSPENSION 2 actuations in each nostril q day 07/15 MOMETASONE FUROATE 19964135370 No Longer Active Tu Landeros MD Active MAGNESIUM OXIDE 400 MG ORAL TABLET 1 po BID MAGNESIUM OXIDE 71340803414 Active Tu Landeros MD Active SIMVASTATIN 20 MG ORAL TABLET 0.5 po qHS SIMVASTATIN 54746533445 Active Tu Landeros MD Active DICLOFENAC SODIUM 75 MG ORAL TABLET DELAYED RELEASE 1 po BID PRN Pain DICLOFENAC SODIUM 36627563833 No Longer Active Tu Landeros MD Active GABAPENTIN 100 MG ORAL CAPSULE 1 po TID GABAPENTIN 40142766720 Active Tu Landeros MD Active DICLOFENAC SODIUM 50 MG ORAL TABLET DELAYED RELEASE 1 po BID PRN Pain DICLOFENAC SODIUM 90035111614 No Longer Active Tu Landeros MD Active CYCLOBENZAPRINE HCL 10 MG ORAL TABLET 1 po TID PRN Muscle Spasm CYCLOBENZAPRINE HCL 72434808010 No Longer Active Tu Landeros MD Active INVOKANA 100 MG ORAL TABLET 1 po qd CANAGLIFLOZIN 66385594288 Active José Luis Becerra MD Active GLIPIZIDE 5 MG ORAL TABLET 1 po qd GLIPIZIDE 23559831858 No Longer Active Tu Landeros MD Active VENLAFAXINE HCL 75 MG ORAL TABLET 1 po BID VENLAFAXINE HCL 89037894594 Active Tu Landeros MD Active GLIMEPIRIDE 1 MG ORAL TABLET 1 po qd GLIMEPIRIDE 74935955365 No Longer Active Tu Landeros MD Active TRUE METRIX BLOOD GLUCOSE TEST IN VITRO STRIP Test blood sugar BID Dx: E11.9 GLUCOSE BLOOD 37630774804 Active Tu Landeros MD Active TRUE METRIX AIR GLUCOSE METER w/Device KIT Test blood glucose BID Dx: E11.9 BLOOD GLUCOSE MONITORING SUPPL 98337829091 Active Tu Landeros MD Active TRUETEST TEST IN VITRO STRIP test blood sugar twice daily. DX 250.0 GLUCOSE BLOOD 12125078841 No Longer Active Mirna Stanley LPN Active TRUEDRAW LANCING DEVICE test blood sugar twice daily dx: 250.00 LANCET DEVICES 22382595319 No Longer Active Mirna Stanley LPN Active ENALAPRIL MALEATE 20 MG ORAL TABLET 2 po qd ENALAPRIL MALEATE 73797204737 Active Tu Landeros MD Active SUPER B COMPLEX/VITAMIN C ORAL TABLET 1 qd B COMPLEX- C 48972999661 No Longer Active Tu Landeros MD Active ASPIRIN EC 81 MG ORAL TABLET DELAYED RELEASE 1 po qd ASPIRIN 59220502310 Active Tu Landeros MD Active GLUCOSAMINE 500 MG TABS 2 po qd GLUCOSAMINE Active Tu Landeros MD Active FISH OIL 1000 MG ORAL CAPSULE 1 po qd OMEGA-3 FATTY ACIDS 18878881515 Active Tu Landeros MD Active METFORMIN HCL 1000 MG ORAL TABLET 1 po BID METFORMIN HCL 31348774838 Active Tu Landeros MD Active KLOR-CON 10 10 MEQ ORAL TABLET EXTENDED RELEASE 2 po qd POTASSIUM CHLORIDE 19673402119 Active Tu Landeros MD Active FUROSEMIDE 40 MG ORAL TABLET 1 po qd FUROSEMIDE 28420191275 Active Tu Landeros MD Active REQUIP 2 MG ORAL TABLET 1 po qHS PRN Restless legs ROPINIROLE HCL 56679715080 Active Tu Landeros MD Active REQUIP 2 MG ORAL TABLET Take one tablet at bedtime prn ROPINIROLE HCL 88605130930 No Longer Active Tu Landeros MD Active VENTOLIN HFA 108 (90 Base) MCG/ACT INHALATION AEROSOL SOLUTION 1-2 puffs every 4 hours if needed for cough/congestion ALBUTEROL SULFATE 06912274352 No Longer Active Ambika Aden APRN Active ZITHROMAX 250 MG ORAL TABLET 2 po today, then 1 po q days 2-5 AZITHROMYCIN 63083194210 No Longer Active Miranda Farah APRN Active FLONASE 50 MCG/ACT NASAL SUSPENSION 1 spray each nostril twice daily until bottle empty FLUTICASONE PROPIONATE 03206513964 No Longer Active Tu Landeros MD Active COLACE 100 MG ORAL CAPSULE 1 po BID PRN Constipation DOCUSATE SODIUM 05456973513 Active Tu Landeros MD Active TRUERESULT BLOOD GLUCOSE w/Device KIT test blood sugar twice daily dx 250.00 BLOOD GLUCOSE MONITORING SUPPL 53967118125 No Longer Active Tu Landeros MD Active TRUEDRAW LANCING DEVICE Test twice a day dx 250.0 LANCET DEVICES 26981226116 No Longer Active Tu Landeros MD Active PREDNISONE 20 MG ORAL TABLET 2 tablets once daily for 2 days, then 1 tablet once daily for 2 days PREDNISONE 12335858993 No Longer Active Tu Landeros MD Active DICLOFENAC SODIUM 50 MG ORAL TABLET DELAYED RELEASE 1 tablet by mouth three times a day as needed DICLOFENAC SODIUM 66846591376 No Longer Active Fab Morales DO Active EMBRACE BLOOD GLUCOSE TEST IN VITRO STRIP test blood sugar twice daily DX 250.0 GLUCOSE BLOOD 79390515143 No Longer Active Tu Landeros MD Active TRUETEST TEST IN VITRO STRIP test blood sugar three times daily dx: 250.00 GLUCOSE BLOOD 47844394817 No Longer Active Suze VOGEL Active TRUERESULT BLOOD GLUCOSE w/Device KIT use to test blood sugar tid dx: 250.00 BLOOD GLUCOSE MONITORING SUPPL 92497011056 No Longer Active Suzebianca VOGEL Active ALIGN 4 MG ORAL CAPSULE 1 tid PROBIOTIC PRODUCT 41124620337 No Longer Active Shaun Sy MD Active CIPRO 500 MG ORAL TABLET 1 bid x 14 days start 09-28-13 CIPROFLOXACIN HCL 17650784948 No Longer Active Shaun Sy MD Active TRAMADOL HCL 50 MG ORAL TABLET 1-2 tablets every 6 hours as needed for pain TRAMADOL HCL 62618512983 Active Tu Landeros MD Active HYDROCODONE-ACETAMINOPHEN 5-325 MG ORAL TABLET 1 tab by mouth every 6 hours as needed for pain HYDROCODONE-ACETAMINOPHEN 94044742940 No Longer Active Tu Landeros MD Active OMEPRAZOLE 20 MG ORAL CAPSULE DELAYED RELEASE 1 po q a.m. OMEPRAZOLE 24144058463 Active Tu Landeros MD Active GABAPENTIN 100 MG ORAL CAPSULE 1 po bid GABAPENTIN 52317677599 No Longer Active Tu Landeros MD Active B-12 100 MCG ORAL TABLET Take one by mouth daily CYANOCOBALAMIN 56744716882 No Longer Active Tu Landeros MD Active BACTRIM DS 800-160 MG ORAL TABLET 1 bid x 14 day start 09-28-13 SULFAMETHOXAZOLE-TRIMETHOPRIM 52041534681 No Longer Active Tu Landeros MD Active CARVEDILOL 12.5 MG ORAL TABLET 1 po BID CARVEDILOL 97403237748 Active Tu Landeros MD Active FENOFIBRATE 145 MG ORAL TABLET 1 po qd FENOFIBRATE 00818999241 No Longer Active JASPREET Perez Active OMEPRAZOLE 20 MG ORAL TABLET DELAYED RELEASE 1 PO 30 MIN BEFORE 1ST MEAL 2010 OMEPRAZOLE 51998487066 No Longer Active JASPREET Perez Active SIMVASTATIN 40 MG ORAL TABLET Take one by mouth daily SIMVASTATIN 43161948276 No Longer Active JASPREET Perez Active VENLAFAXINE HCL 75 MG ORAL TABLET 1 po BID VENLAFAXINE HCL 34187338826 No Longer Active JASPREET Perez Active CIPRO 500 MG ORAL TABLET 1 tablet by mouth twice daily CIPROFLOXACIN HCL 60334146726 No Longer Active Tu Landeros MD Active VENLAFAXINE HCL 37.5 MG ORAL TABLET 1 po BID VENLAFAXINE HCL 86061863887 No Longer Active Suze NUNOA Active LAMISIL 250 MG ORAL TABLET 1 po qd TERBINAFINE HCL 48191805495 No Longer Active Tu Landeros MD Active LORTAB 5-500 MG ORAL TABLET 1/2 to 1 tablet by mouth every 4 hours as needed for pain HYDROCODONE-ACETAMINOPHEN 38984482571 No Longer Active Tu Landeros MD Active HYDROCODONE-ACETAMINOPHEN 5-500 MG ORAL TABLET take one po Q 4-6 hours prn HYDROCODONE-ACETAMINOPHEN 98952848176 No Longer Active Tu Landeros MD Active BACTRIM DS 800-160 MG ORAL TABLET 1 po BID x 7 days SULFAMETHOXAZOLE-TRIMETHOPRIM 24133989388 No Longer Active Tu Landeros MD Active VENLAFAXINE HCL 75 MG ORAL TABLET 1 po BID VENLAFAXINE HCL 37584053225 No Longer Active Elvira Cervantes MD PhD Active TRAMADOL HCL 50 MG ORAL TABLET 1 tablets every 6 hours as needed for pain TRAMADOL HCL 18741260199 No Longer Active Tu Landeros MD Active ACCU-CHEDawson FASTCLIX LANCETS Use to check bloodsugar three times daily as needed LANCETS 74648076574 No Longer Active Tu Landeros MD Active ACCU-CHEDawson KEYONA PLUS IN VITRO STRIP Use for testing bloodsugars three times daily as needed GLUCOSE BLOOD 19393344245 No Longer Active Tu Landeros MD Active ACCU-CHEK KEYONA PLUS w/Device KIT Use for testing bloodsugars three times daily as needed BLOOD GLUCOSE MONITORING SUPPL 69045066648 No Longer Active Tu Landeros MD Active SPIRONOLACTONE 25 MG ORAL TABLET 0.5 tablet by mouth daily 09/09 SPIRONOLACTONE 76816124396 No Longer Active Tu Landeros MD Active ALPRAZOLAM 0.5 MG ORAL TABLET 1 tab every 6hrs as needed ALPRAZOLAM 18566487647 No Longer Active Tu Landeros MD Active AUGMENTIN 875-125 MG ORAL TABLET 1 tab by mouth twice daily with food AMOXICILLIN-POT CLAVULANATE 30031072842 No Longer Active Tu Landeros MD Active PREDNISONE 20 MG ORAL TABLET 2 tabs daily for 3 days, 1 tab daily for 3 days, 1/2 tab daily for 2 days PREDNISONE 79960573678 No Longer Active Tu Landeros MD Active XANAX 0.5 MG ORAL TABLET 1 tablet every 6 hrs prn ALPRAZOLAM 43196556187 No Longer Active Tu Landeros MD Active PREDNISONE 20 MG ORAL TABLET 2 tabs daily for 3 days, 1 tab daily for 3 days, 1/2 tab daily for 2 days PREDNISONE 62887236611 No Longer Active Tu Landeros MD Active TRIAMCINOLONE ACETONIDE 0.1 % EXTERNAL OINTMENT Apply to affected areas TID for up to 2 weeks TRIAMCINOLONE ACETONIDE 76588560597 No Longer Active Tu Landeros MD Active LORTAB 5-500 MG ORAL TABLET 1/2 to 1 tablet by mouth every 4 hours as needed for pain HYDROCODONE-ACETAMINOPHEN 33642125521 No Longer Active Tu Landeros MD Active MULTIVITAMINS TABS Take one by mouth daily MULTIPLE VITAMIN 23558975726 No Longer Active Tu Landeros MD Active MELATONIN 5 MG ORAL TABLET Take one by mouth daily MELATONIN 22541927771 No Longer Active Tu Landeros MD Active SOMA 350 MG ORAL TABLET 1 po q 6 hours prn spasm CARISOPRODOL 49240916853 No Longer Active Tu Landeros MD Active MECLIZINE HCL 25 MG ORAL TABLET CHEWABLE 1 four times a day as needed for dizziness MECLIZINE HCL 18766011271 No Longer Active Fab Morales DO Active ANGEL BREEZE 2 TEST IN VITRO DISK test tid prn GLUCOSE BLOOD 42372559044 No Longer Active Negra Scott RN Active REGLAN 10 MG ORAL TABLET 1 po TID PRN Nausea METOCLOPRAMIDE HCL 14844891262 No Longer Active Tu Landeros MD Active METFORMIN HCL 500 MG ORAL TABLET 1 PO BID METFORMIN HCL 79810651501 No Longer Active Tu Landeros MD Active AMBIEN 10 MG ORAL TABLET 1 tab by mouth at bedtime as needed for sleep 06/10 ZOLPIDEM TARTRATE 76069179973 No Longer Active Tu Landeros MD Active FLUOXETINE HCL 40 MG ORAL CAPSULE 1 po q day FLUOXETINE HCL 03262612088 No Longer Active Mayra Lanark Active TRILIPIX 135 MG ORAL CAPSULE DELAYED RELEASE 1 po qd CHOLINE FENOFIBRATE 72342803003 No Longer Active Tu Landeros MD Active AMBIEN 10 MG ORAL TABLET 1 tab by mouth at bedtime as needed for sleep 06/10 AMBIEN 10 MG ORAL TABLET 920799 ZOLPIDEM TARTRATE Inactive METFORMIN HCL 500 MG ORAL TABLET 1 PO BID METFORMIN HCL 500 MG ORAL TABLET 127568 METFORMIN HCL Inactive REGLAN 10 MG ORAL TABLET 1 po TID PRN Nausea REGLAN 10 MG ORAL TABLET 073890 METOCLOPRAMIDE HCL Inactive MECLIZINE HCL 25 MG ORAL TABLET CHEWABLE 1 four times a day as needed for dizziness MECLIZINE HCL 25 MG ORAL TABLET CHEWABLE 749908 MECLIZINE HCL Inactive SOMA 350 MG ORAL TABLET 1 po q 6 hours prn spasm SOMA 350 MG ORAL TABLET 472053 CARISOPRODOL Inactive MELATONIN 5 MG ORAL TABLET Take one by mouth daily MELATONIN 5 MG ORAL TABLET 207066 MELATONIN Inactive MULTIVITAMINS TABS Take one by mouth daily MULTIVITAMINS TABS MULTIPLE VITAMIN Inactive LORTAB 5-500 MG ORAL TABLET 1/2 to 1 tablet by mouth every 4 hours as needed for pain LORTAB 5-500 MG ORAL TABLET HYDROCODONE- ACETAMINOPHEN Inactive XANAX 0.5 MG ORAL TABLET 1 tablet every 6 hrs prn XANAX 0.5 MG ORAL TABLET 154061 ALPRAZOLAM Inactive AUGMENTIN 875-125 MG ORAL TABLET 1 tab by mouth twice daily with food AUGMENTIN 875-125 MG ORAL TABLET 381528 AMOXICILLIN-POT CLAVULANATE Inactive ALPRAZOLAM 0.5 MG ORAL TABLET 1 tab every 6hrs as needed ALPRAZOLAM 0.5 MG ORAL TABLET 631043 ALPRAZOLAM Inactive SPIRONOLACTONE 25 MG ORAL TABLET 0.5 tablet by mouth daily 09/09 SPIRONOLACTONE 25 MG ORAL TABLET 754445 SPIRONOLACTONE Inactive ACCU-CHEK KEYONA PLUS w/Device KIT [...] times daily as needed ACCU-CHEK FASTCLIX LANCETS 70822796127 LANCETS Inactive TRAMADOL HCL 50 MG ORAL TABLET 1 tablets every 6 hours as needed for pain TRAMADOL HCL 50 MG ORAL TABLET 203860 TRAMADOL HCL Inactive VENLAFAXINE HCL 75 MG ORAL TABLET 1 po BID VENLAFAXINE HCL 75 MG ORAL TABLET 111563 VENLAFAXINE HCL Inactive HYDROCODONE-ACETAMINOPHEN 5-500 MG ORAL TABLET take one po Q 4-6 hours prn HYDROCODONE-ACETAMINOPHEN 5-500 MG ORAL TABLET HYDROCODONE-ACETAMINOPHEN Inactive LORTAB 5-500 MG ORAL TABLET 1/2 to 1 tablet by mouth every 4 hours as needed for pain LORTAB 5-500 MG ORAL TABLET HYDROCODONE- ACETAMINOPHEN Inactive LAMISIL 250 MG ORAL TABLET 1 po qd LAMISIL 250 MG ORAL TABLET 508421 TERBINAFINE HCL Inactive VENLAFAXINE HCL 37.5 MG ORAL TABLET 1 po BID VENLAFAXINE HCL 37.5 MG ORAL TABLET 682373 VENLAFAXINE HCL Inactive CIPRO 500 MG ORAL TABLET 1 tablet by mouth twice daily CIPRO 500 MG ORAL TABLET 772495 CIPROFLOXACIN HCL Inactive VENLAFAXINE HCL 75 MG ORAL TABLET 1 po BID VENLAFAXINE HCL 75 MG ORAL TABLET 375591 VENLAFAXINE HCL Inactive SIMVASTATIN 40 MG ORAL TABLET Take one by mouth daily SIMVASTATIN 40 MG ORAL TABLET 806119 SIMVASTATIN Inactive OMEPRAZOLE 20 MG ORAL TABLET DELAYED RELEASE 1 PO 30 MIN BEFORE 1ST MEAL 2010 OMEPRAZOLE 20 MG ORAL TABLET DELAYED RELEASE 043676 OMEPRAZOLE Inactive FENOFIBRATE 145 MG ORAL TABLET 1 po qd FENOFIBRATE 145 MG ORAL TABLET 141874 FENOFIBRATE Inactive BACTRIM DS 800-160 MG ORAL TABLET 1 bid x 14 day start 09-28-13 BACTRIM DS 800-160 MG ORAL TABLET 761899 SULFAMETHOXAZOLE- TRIMETHOPRIM Inactive B-12 100 MCG ORAL TABLET Take one by mouth daily B-12 100 MCG ORAL TABLET CYANOCOBALAMIN Inactive GABAPENTIN 100 MG ORAL CAPSULE 1 po bid GABAPENTIN 100 MG ORAL CAPSULE 690896 GABAPENTIN Inactive HYDROCODONE-ACETAMINOPHEN 5-325 MG ORAL TABLET 1 tab by mouth every 6 hours as needed for pain HYDROCODONE-ACETAMINOPHEN 5-325 MG ORAL TABLET 304125 HYDROCODONE-ACETAMINOPHEN Inactive CIPRO 500 MG ORAL TABLET 1 bid x 14 days start 814 CIPRO 500 MG ORAL TABLET 390863 CIPROFLOXACIN HCL Inactive ALIGN 4 MG ORAL [...] SODIUM 50 MG ORAL TABLET DELAYED RELEASE 060653 DICLOFENAC SODIUM Inactive PREDNISONE 20 MG ORAL TABLET 2 tablets once daily for 2 days, then 1 tablet once daily for 2 days PREDNISONE 20 MG ORAL TABLET 746996 PREDNISONE Inactive TRUEDRAW LANCING DEVICE Test twice a day dx 250.0 TRUEDRAW LANCING DEVICE LANCET DEVICES Inactive TRUERESULT BLOOD GLUCOSE w/Device KIT test blood sugar twice daily dx 250.00 TRUERESULT BLOOD GLUCOSE w/Device KIT BLOOD GLUCOSE MONITORING SUPPL Inactive FLONASE 50 MCG/ACT NASAL SUSPENSION 1 spray each nostril twice daily until bottle empty FLONASE 50 MCG/ACT NASAL SUSPENSION 0825210 FLUTICASONE PROPIONATE Inactive VENTOLIN HFA 108 (90 Base) MCG/ACT INHALATION AEROSOL SOLUTION 1-2 puffs every 4 hours if needed for cough/congestion VENTOLIN HFA 108 (90 Base) MCG/ACT INHALATION AEROSOL SOLUTION ALBUTEROL SULFATE Inactive REQUIP 2 MG ORAL TABLET Take one tablet at bedtime prn REQUIP 2 MG ORAL TABLET 719150 ROPINIROLE HCL Inactive SUPER B COMPLEX/VITAMIN C ORAL TABLET 1 qd SUPER B COMPLEX/VITAMIN C ORAL TABLET 78856494029 B COMPLEX-C Inactive TRUEDRAW LANCING DEVICE test blood sugar twice daily dx: 250.00 TRUEDRAW LANCING DEVICE LANCET DEVICES Inactive TRUETEST TEST IN VITRO STRIP test blood sugar twice daily. DX 250.0 TRUETEST TEST IN VITRO STRIP GLUCOSE BLOOD Inactive CYCLOBENZAPRINE HCL 10 MG ORAL TABLET 1 po TID PRN Muscle Spasm CYCLOBENZAPRINE HCL 10 MG ORAL TABLET 098071 CYCLOBENZAPRINE HCL Inactive DICLOFENAC SODIUM 50 MG ORAL TABLET DELAYED RELEASE 1 po BID PRN Pain DICLOFENAC SODIUM 50 MG ORAL TABLET DELAYED RELEASE 605960 DICLOFENAC SODIUM Inactive DICLOFENAC SODIUM 75 MG ORAL TABLET DELAYED RELEASE 1 po BID PRN Pain DICLOFENAC SODIUM 75 MG ORAL TABLET DELAYED RELEASE 256484 DICLOFENAC SODIUM Inactive NASONEX 50 MCG/ACT NASAL SUSPENSION 2 actuations in each nostril q day 07/15 NASONEX 50 MCG/ACT NASAL SUSPENSION 4322937 MOMETASONE FUROATE Inactive GUAIFENESIN ER 600 MG ORAL TABLET EXTENDED RELEASE 12 HOUR 1 twice a day as needed for congestion GUAIFENESIN ER 600 MG ORAL TABLET EXTENDED RELEASE 12 HOUR GUAIFENESIN Inactive AZITHROMYCIN 250 MG ORAL TABLET 2 po qd x 1, then 1 po qd x 4 AZITHROMYCIN 250 MG ORAL TABLET 154334 AZITHROMYCIN Inactive PROMETHAZINE-CODEINE 6.25-10 MG/5ML ORAL SYRUP 5ml po q6hr PRN Cough PROMETHAZINE-CODEINE 6.25-10 MG/5ML ORAL SYRUP 220676 PROMETHAZINE-CODEINE Inactive TRILIPIX 135 MG ORAL CAPSULE DELAYED RELEASE 1 q hs TRILIPIX 135 MG ORAL CAPSULE DELAYED RELEASE 813701 CHOLINE FENOFIBRATE Inactive TRIAMCINOLONE ACETONIDE 0.1 % EXTERNAL OINTMENT Apply to affected areas TID for up to 2 weeks TRIAMCINOLONE ACETONIDE 0.1 % EXTERNAL OINTMENT 5070651 TRIAMCINOLONE ACETONIDE Inactive PREDNISONE 20 MG ORAL TABLET 2 tabs daily for 3 days, 1 tab daily for 3 days, 1/2 tab daily for 2 days PREDNISONE 20 MG ORAL TABLET 221028 PREDNISONE Inactive PREDNISONE 20 MG ORAL TABLET 2 tabs daily for 3 days, 1 tab daily for 3 days, 1/2 tab daily for 2 days PREDNISONE 20 MG ORAL TABLET 387792 PREDNISONE Inactive BACTRIM DS 800-160 MG ORAL TABLET 1 po BID x 7 days BACTRIM DS 800-160 MG ORAL TABLET 507006 SULFAMETHOXAZOLE-TRIMETHOPRIM Inactive ZITHROMAX 250 MG ORAL TABLET 2 po today, then 1 po q days 2-5 ZITHROMAX 250 MG ORAL TABLET 267543 AZITHROMYCIN Inactive PREDNISONE 20 MG ORAL TABLET 2 po qd x 5 days PREDNISONE 20 MG ORAL TABLET 679756 PREDNISONE Inactive Advance Directives Directive Description Start Date DISCUSSED WITH PATIENT -- NO DECISION MADE Immunizations Vaccine Administration Date Value Standard Description Seasonal influenza vaccine, injectable, containing preservative, for > 3 years old (Afluria, FluLaval, Fluzone, Fluvirin, Fluarix, Agriflu(>=18 yo)) Fluzone (>3 yrs.) [[id number]] Influenza, seasonal, injectable influenza immunization (Flu Vax) has been administered 02/22/2012 influenza virus vaccine, unspecified formulation Seasonal influenza vaccine, injectable, containing preservative, for > 3 years old (Afluria, FluLaval, Fluzone, Fluvirin, Fluarix, Agriflu(>=18 yo)) Fluzone (>3 yrs.) [[id number]] Influenza, seasonal, injectable Vital Signs Date Name [...] ... - Chemistry sodium, serum 141 mmol/L 502-570 8957/01/16 carbon dioxide, venous blood 28.3 mmol/L 21.0-32.0 [...] 6.7 % 4.3-6.0 cholesterol, serum 106 mg/dL 971-335 4070/01/16 triglyceride, serum, fasting 173 mg/dL 30-200 HDL cholesterol, serum 29 mg/dL 32-60 LDL cholesterol, serum 42 mg/dL 0-130 albumin/creatinine ratio, urine <30 mg/g Normal mg/g mg/g{creat} 0-29 Lab Report: CBC, Comp. Metabolic Panel, HGBA1C, Lipid Panel, Magnesium, ... - Hematology hematocrit, blood 42.5 % 37.0-47.0 hemoglobin, blood 13.4 g/dL 12.0-16.0 erythrocyte (RBC) count 4.70 10^6/MM^3 10*6/mm3 3.80-5.80 leukocyte count, blood 6.9 10^3/MM^3 10*3/mm3 4.6-10.2 mean corpuscular volume, RBC 90 fL 80-97 [...] Magnesium - Chemistry sodium, serum 142 mmol/L 513-196 6107/07/16 creatinine, serum 0.95 mg/dL 0.60-1.30 alanine aminotransferase (SGPT), serum 36 U/L 12-78 aspartate aminotransferase (SGOT), serum 28 U/L 15-37 calcium, serum 9.1 mg/dL 8.5-10.1 bilirubin, serum, total 0.20 mg/dL 0.00-1.00 hemoglobin A1C, blood, as % of total hemoglobin 6.4 % 4.3-6.0 carbon dioxide, venous blood 29.4 mmol/L 21.0-32.0 potassium, serum 4.7 mmol/L 3.5-5.2 chloride, serum 106 mmol/L 98-107 blood glucose 130 mg/dL 65-95 urea nitrogen, blood 19 mg/dL 7-18 Lab Report: HGBA1C - Chemistry hemoglobin A1C, blood, as % of total hemoglobin 6.5 % 4.3-6.0 Lab Report: Lipid Panel - Chemistry cholesterol, serum 170 mg/dL 735-690 8376/07/16 triglyceride, serum, fasting 266 mg/dL 30-200 HDL cholesterol, serum 42 mg/dL 32-60 LDL cholesterol, serum 75 mg/dL 0-130 Encounters Code Encounter Date Provider Facility CPT-08909 Level 4 Est. Patient 14:46:36 CDT Tu Landeros MD [facility] CPT-20723 Level 3 Est. Patient 10:28:05 CDT Tu Landeros MD [facility] CPT-01544 Level 3 Est. Patient 09:11:32 CDT Tu Landeros MD [facility] CPT-89008 Level 3 Est. Patient 10:13:19 EMBOSSER APPRENTICE Lesli Kellogg APRN [facility] CPT-80026 Level 4 Est. Patient 13:42:02 EMBOSSER APPRENTICE Tu Landeros MD [facility] CPT-[id number] Level 3 Est. Patient 14:20:36 CDT Tu Landeros MD [facility] CPT-[id number] Level 4 Est. Patient 14:28:34 CDT Tu Landeros MD [facility] CPT-[id number] Level 3 Est. Patient 13:33:09 CDT Tu Landeros MD [facility] CPT-[id number] Level 4 Est. Patient 14:29:21 CDT Tu Landeros MD [facility] CPT-[id number] Level 4 Est. Patient 09:08:17 EMBOSSER APPRENTICE Tu Landeros MD [facility] CPT-13039 Level 4 Est. Patient 14:40:19 CDT Tu Landeros MD [facility] CPT-31490 Level 4 Est. Patient 14:06:04 EMBOSSER APPRENTICE Tu Landeros MD [facility] CPT-45022 Level 3 Est. Patient 14:05:18 EMBOSSER APPRENTICE Tu Landeros MD [facility] CPT-83284 Level 3 Est. Patient 10:06:54 EMBOSSER APPRENTICE Miranda Farah APRN [facility] CPT-69185 Level 4 Est. Patient 13:50:18 EMBOSSER APPRENTICE Tu Landeros MD [facility] CPT-40575 Level 3 Est. Patient 10:30:04 CDT Tu Landeros MD [facility] CPT-06898 Level 4 Est. Patient 11:03:38 CDT Tu Landeros MD [facility] CPT-44596 Level 3 Est. Patient 10:20:44 CDT Fab Morales DO [facility] CPT-44606 Level 4 Est. Patient 14:38:57 CDT Tu Landeros MD [facility] CPT-10108 Level 4 Est. Patient 14:27:39 EMBOSSER APPRENTICE Tu Landeros MD [facility] CPT-30231 Level 4 Est. Patient 09:45:25 CDT Tu Landeros MD [facility] CPT-42744 Level 4 Est. Patient 09:05:20 EMBOSSER APPRENTICE Tu Landeros MD [facility] CPT-86839 Level 4 Est. Patient 14:09:06 CDT Tu Landeros MD [facility] CPT-47454 Level 3 Est. Patient 13:36:54 CDT Tu Landeros MD [facility] CPT-49555 Level 3 Est. Patient 08:59:14 CDT Tu Landeros MD [facility] CPT-02241 Level 3 Est. Patient 13:48:35 CDT Fab Morales DO [facility] CPT-21546 Level 4 Est. Patient 10:05:48 CDT Tu Landeros MD [facility] CPT-65275 Level 3 Est. Patient 13:38:42 CDT Marek BANKS [facility] CPT-33245 Level 5 Est. Patient 08:08:39 CDT Jerrica FRANCIS [facility] CPT-72387 Level 4 Est. Patient 14:23:38 CDT Tu Landeros MD [facility] CPT-00325 Level 3 Est. Patient 11:44:04 CDT Tu Landeros MD [facility] CPT-42165 Level 3 Est. Patient 11:03:20 EMBOSSER APPRENTICE Tu Landeros MD [facility] CPT-91451 Level 3 Est. Patient 11:03:14 EMBOSSER APPRENTICE Tu Landeros MD [facility] CPT-85950 Level 3 Est. Patient 12:42:49 CDT Tu Landeros MD [facility] CPT-69751 Level 3 Est. Patient 11:52:06 CDT Tu Landeros MD [facility] CPT-74320 Level 3 Est. Patient 13:58:11 CDT Tu Landeros MD [facility] CPT-65810 Level 3 Est. Patient 17:50:07 CDT Fab Morales DO [facility] CPT-08604 Level 3 Est. Patient 12:06:29 CDT Elvira Cervantes MD PhD [facility] CPT-80553 Level 3 Est. Patient 15:50:32 CDT Tu Landeros MD [facility] CPT-46421 Level 4 Est. Patient 16:08:29 CDT Tu Landeros MD [facility] CPT-17515 Level 3 Est. Patient 16:04:19 CDT Tu Landeros MD [facility] CPT-11139 Level 3 Est. Patient 11:22:30 EMBOSSER APPRENTICE Tu Landeros MD [facility] CPT-96903 Level 4 Est. Patient 16:24:02 EMBOSSER APPRENTICE Tu Landeros MD [facility] CPT-58980 Level 3 Est. Patient 17:21:23 EMBOSSER APPRENTICE Tu Landeros MD [facility] Procedures Code Procedure Name Date Entry Date Standard Description CPT-G0439 Subsequent Annual Wellness Exam 14:46:36 CDT CPT-55544 Shoulder, right, comp min 2V - XRAY USE ONLY 13:50:22 CDT CPT-G0009 Administration of Pneumococcal Vaccine 15:08:26 CDT CPT-26973 Prevnar 13 Intramuscular Suspension 15:08:26 CDT 10/08 CPT-G0439 Subsequent Annual Wellness Exam 14:29:22 CDT CPT-22988 Venipuncture Draw Fee 13:15:35 CDT CPT-22264 Magnesium - LAB USE ONLY 11:14:20 EMBOSSER APPRENTICE CPT-14191 Lipid - LAB USE ONLY 11:14:20 EMBOSSER APPRENTICE CPT-51835 HGBA1C - LAB USE ONLY 11:14:20 EMBOSSER APPRENTICE CPT-73672 CMP - LAB USE ONLY 11:14:19 EMBOSSER APPRENTICE CPT-33626 CBC - LAB USE ONLY 11:14:19 EMBOSSER APPRENTICE CPT-05361 Venipuncture Draw Fee 11:14:18 EMBOSSER APPRENTICE CPT-82908 First Vx - Ix admin for Medicare patients 16:46:52 CDT CPT-11502 Fluzone Preservative Free Intramuscular Suspension 16:46 :51 CDT CPT-02988 CBC - LAB USE ONLY 17:14:46 CDT CPT-96777 HGBA1C - LAB USE ONLY 17:14:46 CDT CPT-47901 Venipuncture Draw Fee 17:14:46 CDT CPT-G0438 Initial Annual Wellness Exam 14:13:04 CDT CPT-95497 Breathing Tx 10:06:54 EMBOSSER APPRENTICE CPT-66920 Postop F/U Visit 10:02:45 CDT CPT-LR Lesion Removal 09:02:56 CDT CPT-JTINJ Asp/Joint Injection 15:51:27 EMBOSSER APPRENTICE CPT-OV Office Visit 15:52:02 EMBOSSER APPRENTICE CPT-OV Office Visit 15:45:11 CDT CPT-000 Give Zostavax 14:09:06 CDT CPT-59182 Administration single or combination vaccine inc oral 15 :19:04 CDT CPT-06782 Zoster Vaccine (Zostavax) 15:19:04 CDT CPT-55646 Administration single or combination vaccine inc oral 20 :51:03 CDT CPT-38636 Influenza split virus > age 3 20:51:03 CDT CPT-11229 No Charge Offi Visit 14:52:03 CDT CPT-OV Office Visit 14:57:43 CDT CPT-OV Office Visit 15:22:32 CDT CPT-09835 Administration single or combination vaccine inc oral 11 :33:15 CDT CPT-60194 Influenza split virus > age 3 11:33:15 CDT
--- OUTSIDE RECORDS SUMMARY | 2018-04-25 11:53 | XMS REPORT | Clinical Summary ---
Author Author Admin, SACHI Organization [employer] Address Unknown Phone Unavailable Allergies, Adverse Reactions, [...] magnesium metabolism URI 465.9 Inactive Lesli Kellogg WHIPPER Acute upper respiratory infections of unspecified site [...] 1 GM ORAL CAPSULE 1 po qd HLAZD-6-DESX ETHYL ESTERS 34240152453 Active Tu Landeros MD Active TRILIPIX 135 MG ORAL CAPSULE DELAYED RELEASE 1 q hs CHOLINE FENOFIBRATE 79024115614 No Longer Active Cynthia NUNOA Active TRIAMCINOLONE ACETONIDE 0.1 % EXTERNAL CREAM Apply to affected area TID for up to 2 weeks TRIAMCINOLONE ACETONIDE 13795402348 Active Tu Landeros MD Active INDOMETHACIN 50 MG ORAL CAPSULE 1 po TID PRN Pain INDOMETHACIN 55839102141 Active Tu Landeros MD Active PROMETHAZINE-CODEINE 6.25-10 MG/5ML ORAL SYRUP 5ml po q6hr PRN Cough PROMETHAZINE-CODEINE 46412437456 No Longer Active Tu Landeros MD Active AZITHROMYCIN 250 MG ORAL TABLET 2 po qd x 1, then 1 po qd x 4 AZITHROMYCIN 75955102687 No Longer Active Tu Landeros MD Active GUAIFENESIN ER 600 MG ORAL TABLET EXTENDED RELEASE 12 HOUR 1 twice a day as needed for congestion GUAIFENESIN 25934243481 No Longer Active Tu Landeros MD Active PREDNISONE 20 MG ORAL TABLET 2 po qd x 5 days PREDNISONE 79958789331 No Longer Active Tu Landeros MD Active FLUTICASONE PROPIONATE 50 MCG/ACT NASAL SUSPENSION 2 sprays/nostril qd PRN Congestion/Allergies FLUTICASONE PROPIONATE 83195952535 Active Tu Landeros MD Active NASONEX 50 MCG/ACT NASAL SUSPENSION 2 actuations in each nostril q day 07/15 MOMETASONE FUROATE 82824027590 No Longer Active Tu Landeros MD Active MAGNESIUM OXIDE 400 MG ORAL TABLET 1 po BID MAGNESIUM OXIDE 15615279065 Active Tu Landeros MD Active SIMVASTATIN 20 MG ORAL TABLET 0.5 po qHS SIMVASTATIN 03390226391 Active Tu Landeros MD Active DICLOFENAC SODIUM 75 MG ORAL TABLET DELAYED RELEASE 1 po BID PRN Pain DICLOFENAC SODIUM 51556212474 No Longer Active Tu Landeros MD Active GABAPENTIN 100 MG ORAL CAPSULE 1 po TID GABAPENTIN 56744346630 Active Tu Landeros MD Active DICLOFENAC SODIUM 50 MG ORAL TABLET DELAYED RELEASE 1 po BID PRN Pain DICLOFENAC SODIUM 70573611840 No Longer Active Tu Landeros MD Active CYCLOBENZAPRINE HCL 10 MG ORAL TABLET 1 po TID PRN Muscle Spasm CYCLOBENZAPRINE HCL 27496281517 No Longer Active Tu Landeros MD Active INVOKANA 100 MG ORAL TABLET 1 po qd CANAGLIFLOZIN 96696091259 Active José Luis Becerra MD Active GLIPIZIDE 5 MG ORAL TABLET 1 po qd GLIPIZIDE 76449246730 No Longer Active Tu Landeros MD Active VENLAFAXINE HCL 75 MG ORAL TABLET 1 po BID VENLAFAXINE HCL 65025502013 Active Tu Landeros MD Active GLIMEPIRIDE 1 MG ORAL TABLET 1 po qd GLIMEPIRIDE 90091620291 No Longer Active Tu Landeros MD Active TRUE METRIX BLOOD GLUCOSE TEST IN VITRO STRIP Test blood sugar BID Dx: E11.9 GLUCOSE BLOOD 56198485702 Active Tu Landeros MD Active TRUE METRIX AIR GLUCOSE METER w/Device KIT Test blood glucose BID Dx: E11.9 BLOOD GLUCOSE MONITORING SUPPL 93236089027 Active Tu Landeros MD Active TRUETEST TEST IN VITRO STRIP test blood sugar twice daily. DX 250.0 GLUCOSE BLOOD 27248819491 No Longer Active Mirna Stanley LPN Active TRUEDRAW LANCING DEVICE test blood sugar twice daily dx: 250.00 LANCET DEVICES 74716651930 No Longer Active Mirna Stanley LPN Active ENALAPRIL MALEATE 20 MG ORAL TABLET 2 po qd ENALAPRIL MALEATE 38081717530 Active Tu Landeros MD Active SUPER B COMPLEX/VITAMIN C ORAL TABLET 1 qd B COMPLEX- C 64692996946 No Longer Active Tu Landeros MD Active ASPIRIN EC 81 MG ORAL TABLET DELAYED RELEASE 1 po qd ASPIRIN 27465078856 Active Tu Landeros MD Active GLUCOSAMINE 500 MG TABS 2 po qd GLUCOSAMINE Active Tu Landeros MD Active FISH OIL 1000 MG ORAL CAPSULE 1 po qd OMEGA-3 FATTY ACIDS 19542924756 Active Tu Landeros MD Active METFORMIN HCL 1000 MG ORAL TABLET 1 po BID METFORMIN HCL 26344074528 Active Tu Landeros MD Active KLOR-CON 10 10 MEQ ORAL TABLET EXTENDED RELEASE 2 po qd POTASSIUM CHLORIDE 95312389297 Active Tu Landeros MD Active FUROSEMIDE 40 MG ORAL TABLET 1 po qd FUROSEMIDE 03801696687 Active Tu Landeros MD Active REQUIP 2 MG ORAL TABLET 1 po qHS PRN Restless legs ROPINIROLE HCL 99699042560 Active Tu Landeros MD Active REQUIP 2 MG ORAL TABLET Take one tablet at bedtime prn ROPINIROLE HCL 61097734301 No Longer Active Tu Landeros MD Active VENTOLIN HFA 108 (90 Base) MCG/ACT INHALATION AEROSOL SOLUTION 1-2 puffs every 4 hours if needed for cough/congestion ALBUTEROL SULFATE 62062455789 No Longer Active Ambika Aden APRN Active ZITHROMAX 250 MG ORAL TABLET 2 po today, then 1 po q days 2-5 AZITHROMYCIN 73122298457 No Longer Active Miranda Farah APRN Active FLONASE 50 MCG/ACT NASAL SUSPENSION 1 spray each nostril twice daily until bottle empty FLUTICASONE PROPIONATE 52925352707 No Longer Active Tu Landeros MD Active COLACE 100 MG ORAL CAPSULE 1 po BID PRN Constipation DOCUSATE SODIUM 68640473708 Active Tu Landeros MD Active TRUERESULT BLOOD GLUCOSE w/Device KIT test blood sugar twice daily dx 250.00 BLOOD GLUCOSE MONITORING SUPPL 52951139517 No Longer Active Tu Landeros MD Active TRUEDRAW LANCING DEVICE Test twice a day dx 250.0 LANCET DEVICES 08614000206 No Longer Active Tu Landeros MD Active PREDNISONE 20 MG ORAL TABLET 2 tablets once daily for 2 days, then 1 tablet once daily for 2 days PREDNISONE 93265144874 No Longer Active Tu Landeros MD Active DICLOFENAC SODIUM 50 MG ORAL TABLET DELAYED RELEASE 1 tablet by mouth three times a day as needed DICLOFENAC SODIUM 54293892139 No Longer Active Fab Morales DO Active EMBRACE BLOOD GLUCOSE TEST IN VITRO STRIP test blood sugar twice daily DX 250.0 GLUCOSE BLOOD 76721055690 No Longer Active Tu Landeros MD Active TRUETEST TEST IN VITRO STRIP test blood sugar three times daily dx: 250.00 GLUCOSE BLOOD 34806743313 No Longer Active Suze VOGEL Active TRUERESULT BLOOD GLUCOSE w/Device KIT use to test blood sugar tid dx: 250.00 BLOOD GLUCOSE MONITORING SUPPL 90835966124 No Longer Active Suzebianca VOGEL Active ALIGN 4 MG ORAL CAPSULE 1 tid PROBIOTIC PRODUCT 70614982776 No Longer Active Shaun Sy MD Active CIPRO 500 MG ORAL TABLET 1 bid x 14 days start 09-28-13 CIPROFLOXACIN HCL 90548849375 No Longer Active Shaun Sy MD Active TRAMADOL HCL 50 MG ORAL TABLET 1-2 tablets every 6 hours as needed for pain TRAMADOL HCL 77754438232 Active Tu Landeros MD Active HYDROCODONE-ACETAMINOPHEN 5-325 MG ORAL TABLET 1 tab by mouth every 6 hours as needed for pain HYDROCODONE-ACETAMINOPHEN 90418627421 No Longer Active Tu Landeros MD Active OMEPRAZOLE 20 MG ORAL CAPSULE DELAYED RELEASE 1 po q a.m. OMEPRAZOLE 02846011755 Active Tu Landeros MD Active GABAPENTIN 100 MG ORAL CAPSULE 1 po bid GABAPENTIN 25645143878 No Longer Active Tu Landeros MD Active B-12 100 MCG ORAL TABLET Take one by mouth daily CYANOCOBALAMIN 28247935949 No Longer Active Tu Landeros MD Active BACTRIM DS 800-160 MG ORAL TABLET 1 bid x 14 day start 09-28-13 SULFAMETHOXAZOLE-TRIMETHOPRIM 43966730770 No Longer Active Tu Landeros MD Active CARVEDILOL 12.5 MG ORAL TABLET 1 po BID CARVEDILOL 85942392127 Active Tu Landeros MD Active FENOFIBRATE 145 MG ORAL TABLET 1 po qd FENOFIBRATE 54743460177 No Longer Active JASPREET Perez Active OMEPRAZOLE 20 MG ORAL TABLET DELAYED RELEASE 1 PO 30 MIN BEFORE 1ST MEAL 2010 OMEPRAZOLE 92930534852 No Longer Active JASPREET Perez Active SIMVASTATIN 40 MG ORAL TABLET Take one by mouth daily SIMVASTATIN 73067670180 No Longer Active JASPREET Perez Active VENLAFAXINE HCL 75 MG ORAL TABLET 1 po BID VENLAFAXINE HCL 40884089987 No Longer Active JASPREET Perez Active CIPRO 500 MG ORAL TABLET 1 tablet by mouth twice daily CIPROFLOXACIN HCL 60910629932 No Longer Active Tu Landeros MD Active VENLAFAXINE HCL 37.5 MG ORAL TABLET 1 po BID VENLAFAXINE HCL 95208071044 No Longer Active Suze NNUOA Active LAMISIL 250 MG ORAL TABLET 1 po qd TERBINAFINE HCL 52490975115 No Longer Active Tu Landeros MD Active LORTAB 5-500 MG ORAL TABLET 1/2 to 1 tablet by mouth every 4 hours as needed for pain HYDROCODONE-ACETAMINOPHEN 99122306089 No Longer Active Tu Landeros MD Active HYDROCODONE-ACETAMINOPHEN 5-500 MG ORAL TABLET take one po Q 4-6 hours prn HYDROCODONE-ACETAMINOPHEN 66421200382 No Longer Active Tu Landeros MD Active BACTRIM DS 800-160 MG ORAL TABLET 1 po BID x 7 days SULFAMETHOXAZOLE-TRIMETHOPRIM 54286330275 No Longer Active Tu Landeros MD Active VENLAFAXINE HCL 75 MG ORAL TABLET 1 po BID VENLAFAXINE HCL 40566732481 No Longer Active Elvira Cervantes MD PhD Active TRAMADOL HCL 50 MG ORAL TABLET 1 tablets every 6 hours as needed for pain TRAMADOL HCL 15527427964 No Longer Active Tu Landeros MD Active ACCU-CHED[place]son FASTCLIX LANCETS Use to check bloodsugar three times daily as needed LANCETS 06230061939 No Longer Active Tu Landeros MD Active ACCU-CHED[place]son KEYONA PLUS IN VITRO STRIP Use for testing bloodsugars three times daily as needed GLUCOSE BLOOD 86061926264 No Longer Active Tu Landeros MD Active ACCU-CHEK KEYONA PLUS w/Device KIT Use for testing bloodsugars three times daily as needed BLOOD GLUCOSE MONITORING SUPPL 54771867503 No Longer Active Tu Landeros MD Active SPIRONOLACTONE 25 MG ORAL TABLET 0.5 tablet by mouth daily 09/09 SPIRONOLACTONE 11476583537 No Longer Active Tu Landeros MD Active ALPRAZOLAM 0.5 MG ORAL TABLET 1 tab every 6hrs as needed ALPRAZOLAM 70158898969 No Longer Active Tu Landeros MD Active AUGMENTIN 875-125 MG ORAL TABLET 1 tab by mouth twice daily with food AMOXICILLIN-POT CLAVULANATE 42043102104 No Longer Active Tu Landeros MD Active PREDNISONE 20 MG ORAL TABLET 2 tabs daily for 3 days, 1 tab daily for 3 days, 1/2 tab daily for 2 days PREDNISONE 99762132102 No Longer Active Tu Landeros MD Active XANAX 0.5 MG ORAL TABLET 1 tablet every 6 hrs prn ALPRAZOLAM 83580569643 No Longer Active Tu Landeros MD Active PREDNISONE 20 MG ORAL TABLET 2 tabs daily for 3 days, 1 tab daily for 3 days, 1/2 tab daily for 2 days PREDNISONE 57794141289 No Longer Active Tu Landeros MD Active TRIAMCINOLONE ACETONIDE 0.1 % EXTERNAL OINTMENT Apply to affected areas TID for up to 2 weeks TRIAMCINOLONE ACETONIDE 45221101924 No Longer Active Tu Landeros MD Active LORTAB 5-500 MG ORAL TABLET 1/2 to 1 tablet by mouth every 4 hours as needed for pain HYDROCODONE-ACETAMINOPHEN 97901763489 No Longer Active Tu Landeros MD Active MULTIVITAMINS TABS Take one by mouth daily MULTIPLE VITAMIN 89762139247 No Longer Active Tu Landeros MD Active MELATONIN 5 MG ORAL TABLET Take one by mouth daily MELATONIN 02455906046 No Longer Active Tu Landeros MD Active SOMA 350 MG ORAL TABLET 1 po q 6 hours prn spasm CARISOPRODOL 02258489502 No Longer Active Tu Landeros MD Active MECLIZINE HCL 25 MG ORAL TABLET CHEWABLE 1 four times a day as needed for dizziness MECLIZINE HCL 97418989960 No Longer Active Fab Morales DO Active ANGEL BREEZE 2 TEST IN VITRO DISK test tid prn GLUCOSE BLOOD 52614558270 No Longer Active Negra Scott RN Active REGLAN 10 MG ORAL TABLET 1 po TID PRN Nausea METOCLOPRAMIDE HCL 47755521455 No Longer Active Tu Landeros MD Active METFORMIN HCL 500 MG ORAL TABLET 1 PO BID METFORMIN HCL 41928452316 No Longer Active Tu Landeros MD Active AMBIEN 10 MG ORAL TABLET 1 tab by mouth at bedtime as needed for sleep 06/10 ZOLPIDEM TARTRATE 07311606907 No Longer Active Tu Landeros MD Active FLUOXETINE HCL 40 MG ORAL CAPSULE 1 po q day FLUOXETINE HCL 58083885505 No Longer Active Mayra Jena Active TRILIPIX 135 MG ORAL CAPSULE DELAYED RELEASE 1 po qd CHOLINE FENOFIBRATE 01588963719 No Longer Active Tu Landeros MD Active AMBIEN 10 MG ORAL TABLET 1 tab by mouth at bedtime as needed for sleep 06/10 AMBIEN 10 MG ORAL TABLET 388371 ZOLPIDEM TARTRATE Inactive METFORMIN HCL 500 MG ORAL TABLET 1 PO BID METFORMIN HCL 500 MG ORAL TABLET 272597 METFORMIN HCL Inactive REGLAN 10 MG ORAL TABLET 1 po TID PRN Nausea REGLAN 10 MG ORAL TABLET 484227 METOCLOPRAMIDE HCL Inactive MECLIZINE HCL 25 MG ORAL TABLET CHEWABLE 1 four times a day as needed for dizziness MECLIZINE HCL 25 MG ORAL TABLET CHEWABLE 870844 MECLIZINE HCL Inactive SOMA 350 MG ORAL TABLET 1 po q 6 hours prn spasm SOMA 350 MG ORAL TABLET 041664 CARISOPRODOL Inactive MELATONIN 5 MG ORAL TABLET Take one by mouth daily MELATONIN 5 MG ORAL TABLET 459055 MELATONIN Inactive MULTIVITAMINS TABS Take one by mouth daily MULTIVITAMINS TABS MULTIPLE VITAMIN Inactive LORTAB 5-500 MG ORAL TABLET 1/2 to 1 tablet by mouth every 4 hours as needed for pain LORTAB 5-500 MG ORAL TABLET HYDROCODONE- ACETAMINOPHEN Inactive XANAX 0.5 MG ORAL TABLET 1 tablet every 6 hrs prn XANAX 0.5 MG ORAL TABLET 758922 ALPRAZOLAM Inactive AUGMENTIN 875-125 MG ORAL TABLET 1 tab by mouth twice daily with food AUGMENTIN 875-125 MG ORAL TABLET 152087 AMOXICILLIN-POT CLAVULANATE Inactive ALPRAZOLAM 0.5 MG ORAL TABLET 1 tab every 6hrs as needed ALPRAZOLAM 0.5 MG ORAL TABLET 935421 ALPRAZOLAM Inactive SPIRONOLACTONE 25 MG ORAL TABLET 0.5 tablet by mouth daily 09/09 SPIRONOLACTONE 25 MG ORAL TABLET 585779 SPIRONOLACTONE Inactive ACCU-CHEK KEYONA PLUS w/Device KIT [...] times daily as needed ACCU-CHEK FASTCLIX LANCETS 43509350122 LANCETS Inactive TRAMADOL HCL 50 MG ORAL TABLET 1 tablets every 6 hours as needed for pain TRAMADOL HCL 50 MG ORAL TABLET 466291 TRAMADOL HCL Inactive VENLAFAXINE HCL 75 MG ORAL TABLET 1 po BID VENLAFAXINE HCL 75 MG ORAL TABLET 971981 VENLAFAXINE HCL Inactive HYDROCODONE-ACETAMINOPHEN 5-500 MG ORAL TABLET take one po Q 4-6 hours prn HYDROCODONE-ACETAMINOPHEN 5-500 MG ORAL TABLET HYDROCODONE-ACETAMINOPHEN Inactive LORTAB 5-500 MG ORAL TABLET 1/2 to 1 tablet by mouth every 4 hours as needed for pain LORTAB 5-500 MG ORAL TABLET HYDROCODONE- ACETAMINOPHEN Inactive LAMISIL 250 MG ORAL TABLET 1 po qd LAMISIL 250 MG ORAL TABLET 792366 TERBINAFINE HCL Inactive VENLAFAXINE HCL 37.5 MG ORAL TABLET 1 po BID VENLAFAXINE HCL 37.5 MG ORAL TABLET 724756 VENLAFAXINE HCL Inactive CIPRO 500 MG ORAL TABLET 1 tablet by mouth twice daily CIPRO 500 MG ORAL TABLET 801639 CIPROFLOXACIN HCL Inactive VENLAFAXINE HCL 75 MG ORAL TABLET 1 po BID VENLAFAXINE HCL 75 MG ORAL TABLET 748084 VENLAFAXINE HCL Inactive SIMVASTATIN 40 MG ORAL TABLET Take one by mouth daily SIMVASTATIN 40 MG ORAL TABLET 409528 SIMVASTATIN Inactive OMEPRAZOLE 20 MG ORAL TABLET DELAYED RELEASE 1 PO 30 MIN BEFORE 1ST MEAL 2010 OMEPRAZOLE 20 MG ORAL TABLET DELAYED RELEASE 080902 OMEPRAZOLE Inactive FENOFIBRATE 145 MG ORAL TABLET 1 po qd FENOFIBRATE 145 MG ORAL TABLET 107618 FENOFIBRATE Inactive BACTRIM DS 800-160 MG ORAL TABLET 1 bid x 14 day start 09-28-13 BACTRIM DS 800-160 MG ORAL TABLET 236368 SULFAMETHOXAZOLE- TRIMETHOPRIM Inactive B-12 100 MCG ORAL TABLET Take one by mouth daily B-12 100 MCG ORAL TABLET CYANOCOBALAMIN Inactive GABAPENTIN 100 MG ORAL CAPSULE 1 po bid GABAPENTIN 100 MG ORAL CAPSULE 622615 GABAPENTIN Inactive HYDROCODONE-ACETAMINOPHEN 5-325 MG ORAL TABLET 1 tab by mouth every 6 hours as needed for pain HYDROCODONE-ACETAMINOPHEN 5-325 MG ORAL TABLET 980162 HYDROCODONE-ACETAMINOPHEN Inactive CIPRO 500 MG ORAL TABLET 1 bid x 14 days start 814 CIPRO 500 MG ORAL TABLET 648363 CIPROFLOXACIN HCL Inactive ALIGN 4 MG ORAL [...] SODIUM 50 MG ORAL TABLET DELAYED RELEASE 503539 DICLOFENAC SODIUM Inactive PREDNISONE 20 MG ORAL TABLET 2 tablets once daily for 2 days, then 1 tablet once daily for 2 days PREDNISONE 20 MG ORAL TABLET 094112 PREDNISONE Inactive TRUEDRAW LANCING DEVICE Test twice a day dx 250.0 TRUEDRAW LANCING DEVICE LANCET DEVICES Inactive TRUERESULT BLOOD GLUCOSE w/Device KIT test blood sugar twice daily dx 250.00 TRUERESULT BLOOD GLUCOSE w/Device KIT BLOOD GLUCOSE MONITORING SUPPL Inactive FLONASE 50 MCG/ACT NASAL SUSPENSION 1 spray each nostril twice daily until bottle empty FLONASE 50 MCG/ACT NASAL SUSPENSION 1426668 FLUTICASONE PROPIONATE Inactive VENTOLIN HFA 108 (90 Base) MCG/ACT INHALATION AEROSOL SOLUTION 1-2 puffs every 4 hours if needed for cough/congestion VENTOLIN HFA 108 (90 Base) MCG/ACT INHALATION AEROSOL SOLUTION ALBUTEROL SULFATE Inactive REQUIP 2 MG ORAL TABLET Take one tablet at bedtime prn REQUIP 2 MG ORAL TABLET 785809 ROPINIROLE HCL Inactive SUPER B COMPLEX/VITAMIN C ORAL TABLET 1 qd SUPER B COMPLEX/VITAMIN C ORAL TABLET 84083051549 B COMPLEX-C Inactive TRUEDRAW LANCING DEVICE test blood sugar twice daily dx: 250.00 TRUEDRAW LANCING DEVICE LANCET DEVICES Inactive TRUETEST TEST IN VITRO STRIP test blood sugar twice daily. DX 250.0 TRUETEST TEST IN VITRO STRIP GLUCOSE BLOOD Inactive CYCLOBENZAPRINE HCL 10 MG ORAL TABLET 1 po TID PRN Muscle Spasm CYCLOBENZAPRINE HCL 10 MG ORAL TABLET 519772 CYCLOBENZAPRINE HCL Inactive DICLOFENAC SODIUM 50 MG ORAL TABLET DELAYED RELEASE 1 po BID PRN Pain DICLOFENAC SODIUM 50 MG ORAL TABLET DELAYED RELEASE 869125 DICLOFENAC SODIUM Inactive DICLOFENAC SODIUM 75 MG ORAL TABLET DELAYED RELEASE 1 po BID PRN Pain DICLOFENAC SODIUM 75 MG ORAL TABLET DELAYED RELEASE 172942 DICLOFENAC SODIUM Inactive NASONEX 50 MCG/ACT NASAL SUSPENSION 2 actuations in each nostril q day 07/15 NASONEX 50 MCG/ACT NASAL SUSPENSION 9563895 MOMETASONE FUROATE Inactive GUAIFENESIN ER 600 MG ORAL TABLET EXTENDED RELEASE 12 HOUR 1 twice a day as needed for congestion GUAIFENESIN ER 600 MG ORAL TABLET EXTENDED RELEASE 12 HOUR GUAIFENESIN Inactive AZITHROMYCIN 250 MG ORAL TABLET 2 po qd x 1, then 1 po qd x 4 AZITHROMYCIN 250 MG ORAL TABLET 939086 AZITHROMYCIN Inactive PROMETHAZINE-CODEINE 6.25-10 MG/5ML ORAL SYRUP 5ml po q6hr PRN Cough PROMETHAZINE-CODEINE 6.25-10 MG/5ML ORAL SYRUP 830923 PROMETHAZINE-CODEINE Inactive TRILIPIX 135 MG ORAL CAPSULE DELAYED RELEASE 1 q hs TRILIPIX 135 MG ORAL CAPSULE DELAYED RELEASE 056266 CHOLINE FENOFIBRATE Inactive TRIAMCINOLONE ACETONIDE 0.1 % EXTERNAL OINTMENT Apply to affected areas TID for up to 2 weeks TRIAMCINOLONE ACETONIDE 0.1 % EXTERNAL OINTMENT 1911874 TRIAMCINOLONE ACETONIDE Inactive PREDNISONE 20 MG ORAL TABLET 2 tabs daily for 3 days, 1 tab daily for 3 days, 1/2 tab daily for 2 days PREDNISONE 20 MG ORAL TABLET 392638 PREDNISONE Inactive PREDNISONE 20 MG ORAL TABLET 2 tabs daily for 3 days, 1 tab daily for 3 days, 1/2 tab daily for 2 days PREDNISONE 20 MG ORAL TABLET 436606 PREDNISONE Inactive BACTRIM DS 800-160 MG ORAL TABLET 1 po BID x 7 days BACTRIM DS 800-160 MG ORAL TABLET 355308 SULFAMETHOXAZOLE-TRIMETHOPRIM Inactive ZITHROMAX 250 MG ORAL TABLET 2 po today, then 1 po q days 2-5 ZITHROMAX 250 MG ORAL TABLET 366241 AZITHROMYCIN Inactive PREDNISONE 20 MG ORAL TABLET 2 po qd x 5 days PREDNISONE 20 MG ORAL TABLET 376244 PREDNISONE Inactive Advance Directives Directive Description Start Date DISCUSSED WITH PATIENT -- NO DECISION MADE Immunizations Vaccine Administration Date Value Standard Description Seasonal influenza vaccine, injectable, containing preservative, for > 3 years old (Afluria, FluLaval, Fluzone, Fluvirin, Fluarix, Agriflu(>=18 yo)) Fluzone (>3 yrs.) [[id number]] Influenza, seasonal, injectable influenza immunization (Flu Vax) has been administered 02/22/2012 influenza virus vaccine, unspecified formulation Seasonal influenza vaccine, injectable, containing preservative, for > 3 years old (Afluria, FluLaval, Fluzone, Fluvirin, Fluarix, Agriflu(>=18 yo)) Fluzone (>3 yrs.) [[id number]] Influenza, seasonal, injectable Vital Signs Date Name [...] ... - Chemistry sodium, serum 141 mmol/L 163-699 5028/01/16 carbon dioxide, venous blood 28.3 mmol/L 21.0-32.0 [...] 6.7 % 4.3-6.0 cholesterol, serum 106 mg/dL 330-896 4598/01/16 triglyceride, serum, fasting 173 mg/dL 30-200 HDL [...] Magnesium - Chemistry sodium, serum 142 mmol/L 531-828 3643/07/16 carbon dioxide, venous blood 29.4 mmol/L 21.0-32.0 [...] total hemoglobin 6.4 % 4.3-6.0 Lab Report: HGBA1C - Chemistry hemoglobin A1C, blood, as % of total hemoglobin 6.5 % 4.3-6.0 Lab Report: Lipid Panel - Chemistry cholesterol, serum 170 mg/dL 913-023 1807/07/16 triglyceride, serum, fasting 266 mg/dL 30-200 HDL cholesterol, serum 42 mg/dL 32-60 LDL cholesterol, serum 75 mg/dL 0-130 Encounters Code Encounter Date Provider Facility CPT-18842 Level 4 Est. Patient 14:46:36 CDT Tu Landeros MD [facility] CPT-06071 Level 3 Est. Patient 10:28:05 CDT Tu Landeros MD [facility] CPT-94199 Level 3 Est. Patient 09:11:32 CDT Tu Landeros MD [facility] CPT-78555 Level 3 Est. Patient 10:13:19 CONDOMINIUM MANAGER Lesli Kellogg APRN [facility] CPT-64563 Level 4 Est. Patient 13:42:02 CONDOMINIUM MANAGER Tu Landeros MD [facility] CPT-18266 Level 3 Est. Patient 14:20:36 CDT Tu Landeros MD [facility] CPT-54887 Level 4 Est. Patient 14:28:34 CDT Tu Landeros MD [facility] CPT-16583 Level 3 Est. Patient 13:33:09 CDT Tu Landeros MD [facility] CPT-88153 Level 4 Est. Patient 14:29:21 CDT Tu Landeros MD [facility] CPT-01856 Level 4 Est. Patient 09:08:17 CONDOMINIUM MANAGER Tu Landeros MD [facility] CPT-07544 Level 4 Est. Patient 14:40:19 CDT Tu Landeros MD [facility] CPT-77367 Level 4 Est. Patient 14:06:04 CONDOMINIUM MANAGER Tu Landeros MD [facility] CPT-31371 Level 3 Est. Patient 14:05:18 CONDOMINIUM MANAGER Tu Landeros MD [facility] CPT-71647 Level 3 Est. Patient 10:06:54 CONDOMINIUM MANAGER Miranda Farah APRN [facility] CPT-99623 Level 4 Est. Patient 13:50:18 CONDOMINIUM MANAGER Tu Landeros MD [facility] CPT-49219 Level 3 Est. Patient 10:30:04 CDT Tu Landeros MD [facility] CPT-30487 Level 4 Est. Patient 11:03:38 CDT Tu Landeros MD [facility] CPT-56990 Level 3 Est. Patient 10:20:44 CDT Fab Morales DO [facility] CPT-52261 Level 4 Est. Patient 14:38:57 CDT Tu Landeros MD [facility] CPT-05449 Level 4 Est. Patient 14:27:39 CONDOMINIUM MANAGER Tu Landeros MD [facility] CPT-77056 Level 4 Est. Patient 09:45:25 CDT Tu Landeros MD [facility] CPT-53858 Level 4 Est. Patient 09:05:20 CONDOMINIUM MANAGER Tu Landeros MD [facility] CPT-55565 Level 4 Est. Patient 14:09:06 CDT Tu Landeros MD [facility] CPT-84686 Level 3 Est. Patient 13:36:54 CDT Tu Landeros MD [facility] CPT-67397 Level 3 Est. Patient 08:59:14 CDT Tu Landeros MD [facility] CPT-65095 Level 3 Est. Patient 13:48:35 CDT Fab Morales DO [facility] CPT-09937 Level 4 Est. Patient 10:05:48 CDT Tu Landeros MD [facility] CPT-46808 Level 3 Est. Patient 13:38:42 CDT Marek BANKS [facility] CPT-82642 Level 5 Est. Patient 08:08:39 CDT Jerrica FRANCIS [facility] CPT-16679 Level 4 Est. Patient 14:23:38 CDT Tu Landeros MD [facility] CPT-28539 Level 3 Est. Patient 11:44:04 CDT Tu Landeros MD [facility] CPT-90423 Level 3 Est. Patient 11:03:20 CONDOMINIUM MANAGER Tu Landeros MD [facility] CPT-32597 Level 3 Est. Patient 11:03:14 CONDOMINIUM MANAGER Tu Landeros MD [facility] CPT-29488 Level 3 Est. Patient 12:42:49 CDT Tu Landeros MD [facility] CPT-99688 Level 3 Est. Patient 11:52:06 CDT Tu Landeros MD [facility] CPT-25180 Level 3 Est. Patient 13:58:11 CDT Tu Landeros MD [facility] CPT-14201 Level 3 Est. Patient 17:50:07 CDT Fab Morales DO [facility] CPT-45354 Level 3 Est. Patient 12:06:29 CDT Elvira Cervantes MD PhD [facility] CPT-84589 Level 3 Est. Patient 15:50:32 CDT Tu Landeros MD [facility] CPT-24518 Level 4 Est. Patient 16:08:29 CDT Tu Landeros MD [facility] CPT-03058 Level 3 Est. Patient 16:04:19 CDT Tu Landeros MD [facility] CPT-79506 Level 3 Est. Patient 11:22:30 CONDOMINIUM MANAGER Tu Landeros MD [facility] CPT-58064 Level 4 Est. Patient 16:24:02 CONDOMINIUM MANAGER Tu Landeros MD [facility] CPT-36921 Level 3 Est. Patient 17:21:23 CONDOMINIUM MANAGER Tu Landeros MD [facility] Procedures Code Procedure Name Date Entry Date Standard Description CPT-G0439 Subsequent Annual Wellness Exam 14:46:36 CDT CPT-34478 Shoulder, right, comp min 2V - XRAY USE ONLY 13:50:22 CDT CPT-G0009 Administration of Pneumococcal Vaccine 15:08:26 CDT CPT-53845 Prevnar 13 Intramuscular Suspension 15:08:26 CDT 10/08 CPT-G0439 Subsequent Annual Wellness Exam 14:29:22 CDT CPT-94188 Venipuncture Draw Fee 13:15:35 CDT CPT-28834 Magnesium - LAB USE ONLY 11:14:20 CONDOMINIUM MANAGER CPT-73068 Lipid - LAB USE ONLY 11:14:20 CONDOMINIUM MANAGER CPT-80978 HGBA1C - LAB USE ONLY 11:14:20 CONDOMINIUM MANAGER CPT-75316 CMP - LAB USE ONLY 11:14:19 CONDOMINIUM MANAGER CPT-99963 CBC - LAB USE ONLY 11:14:19 CONDOMINIUM MANAGER CPT-16801 Venipuncture Draw Fee 11:14:18 CONDOMINIUM MANAGER CPT-14496 First Vx - Ix admin for Medicare patients 16:46:52 CDT CPT-71619 Fluzone Preservative Free Intramuscular Suspension 16:46 :51 CDT CPT-14330 CBC - LAB USE ONLY 17:14:46 CDT CPT-07955 HGBA1C - LAB USE ONLY 17:14:46 CDT CPT-54658 Venipuncture Draw Fee 17:14:46 CDT CPT-G0438 Initial Annual Wellness Exam 14:13:04 CDT CPT-77333 Breathing Tx 10:06:54 CONDOMINIUM MANAGER CPT-89926 Postop F/U Visit 10:02:45 CDT CPT-LR Lesion Removal 09:02:56 CDT CPT-JTINJ Asp/Joint Injection 15:51:27 CONDOMINIUM MANAGER CPT-OV Office Visit 15:52:02 CONDOMINIUM MANAGER CPT-OV Office Visit 15:45:11 CDT CPT-000 Give Zostavax 14:09:06 CDT CPT-24405 Administration single or combination vaccine inc oral 15 :19:04 CDT CPT-10559 Zoster Vaccine (Zostavax) 15:19:04 CDT CPT-39096 Administration single or combination vaccine inc oral 20 :51:03 CDT CPT-80730 Influenza split virus > age 3 20:51:03 CDT CPT-15796 No Charge Offi Visit 14:52:03 CDT CPT-OV Office Visit 14:57:43 CDT CPT-OV Office Visit 15:22:32 CDT CPT-15385 Administration single or combination vaccine inc oral 11 :33:15 CDT CPT-61018 Influenza split virus > age 3 11:33:15 CDT
--- OUTSIDE RECORDS SUMMARY | 2018-04-25 11:55 | XMS REPORT | Clinical Summary ---
Author Author Admin, SACHI Organization [employer] Address Unknown Phone Unavailable Allergies, Adverse Reactions, [...] (adult) (pediatric) Obstructive sleep apnea 327.23 Active uT Landeros MD Obstructive sleep apnea (adult) (pediatric) [...] Edema Routine gynecological examination V72.31 Active Tu Ladneros MD Routine gynecological examination Upper respiratory infection, [...] magnesium metabolism URI 465.9 Inactive Lesli Kellogg SSN/SSBN [employer] Acute upper respiratory infections of unspecified [...] 1 GM ORAL CAPSULE 1 po qd [id number] ETHYL ESTERS 43470949347 Active Tu Landeros MD Active TRILIPIX 135 MG ORAL CAPSULE DELAYED RELEASE 1 q hs CHOLINE FENOFIBRATE 13460273909 No Longer Active Cynthia NUNOA Active TRIAMCINOLONE ACETONIDE 0.1 % EXTERNAL CREAM Apply to affected area TID for up to 2 weeks TRIAMCINOLONE ACETONIDE 67375270276 Active Tu Landeros MD Active INDOMETHACIN 50 MG ORAL CAPSULE 1 po TID PRN Pain INDOMETHACIN 99365663260 Active Tu Landeros MD Active PROMETHAZINE-CODEINE 6.25-10 MG/5ML ORAL SYRUP 5ml po q6hr PRN Cough PROMETHAZINE-CODEINE 12880289102 No Longer Active Tu Landeros MD Active AZITHROMYCIN 250 MG ORAL TABLET 2 po qd x 1, then 1 po qd x 4 AZITHROMYCIN 41187223335 No Longer Active Tu Landeros MD Active GUAIFENESIN ER 600 MG ORAL TABLET EXTENDED RELEASE 12 HOUR 1 twice a day as needed for congestion GUAIFENESIN 74447362570 No Longer Active Tu Landeros MD Active PREDNISONE 20 MG ORAL TABLET 2 po qd x 5 days PREDNISONE 24865463786 No Longer Active Tu Landeros MD Active FLUTICASONE PROPIONATE 50 MCG/ACT NASAL SUSPENSION 2 sprays/nostril qd PRN Congestion/Allergies FLUTICASONE PROPIONATE 55248053428 Active Tu Landeros MD Active NASONEX 50 MCG/ACT NASAL SUSPENSION 2 actuations in each nostril q day 07/15 MOMETASONE FUROATE 85866918693 No Longer Active Tu Landeros MD Active MAGNESIUM OXIDE 400 MG ORAL TABLET 1 po BID MAGNESIUM OXIDE 45901832446 Active Tu Landeros MD Active SIMVASTATIN 20 MG ORAL TABLET 0.5 po qHS SIMVASTATIN 80752336128 Active Tu Landeros MD Active DICLOFENAC SODIUM 75 MG ORAL TABLET DELAYED RELEASE 1 po BID PRN Pain DICLOFENAC SODIUM 05539900782 No Longer Active Tu Landeros MD Active GABAPENTIN 100 MG ORAL CAPSULE 1 po TID GABAPENTIN 61732899944 Active Tu Landeros MD Active DICLOFENAC SODIUM 50 MG ORAL TABLET DELAYED RELEASE 1 po BID PRN Pain DICLOFENAC SODIUM 51993552795 No Longer Active Tu Landeros MD Active CYCLOBENZAPRINE HCL 10 MG ORAL TABLET 1 po TID PRN Muscle Spasm CYCLOBENZAPRINE HCL 25560261125 No Longer Active Tu Landeros MD Active INVOKANA 100 MG ORAL TABLET 1 po qd CANAGLIFLOZIN 25725807357 Active José Luis Becerra MD Active GLIPIZIDE 5 MG ORAL TABLET 1 po qd GLIPIZIDE 56866085285 No Longer Active Tu Landeros MD Active VENLAFAXINE HCL 75 MG ORAL TABLET 1 po BID VENLAFAXINE HCL 62064533915 Active Tu Landeros MD Active GLIMEPIRIDE 1 MG ORAL TABLET 1 po qd GLIMEPIRIDE 13654633710 No Longer Active Tu Landeros MD Active TRUE METRIX BLOOD GLUCOSE TEST IN VITRO STRIP Test blood sugar BID Dx: E11.9 GLUCOSE BLOOD 56534828671 Active Tu Landeros MD Active TRUE METRIX AIR GLUCOSE METER w/Device KIT Test blood glucose BID Dx: E11.9 BLOOD GLUCOSE MONITORING SUPPL 09863546867 Active Tu Landeros MD Active TRUETEST TEST IN VITRO STRIP test blood sugar twice daily. DX 250.0 GLUCOSE BLOOD 47252334739 No Longer Active Mirna Stanley LPN Active TRUEDRAW LANCING DEVICE test blood sugar twice daily dx: 250.00 LANCET DEVICES 06538355327 No Longer Active Mirna Stanley LPN Active ENALAPRIL MALEATE 20 MG ORAL TABLET 2 po qd ENALAPRIL MALEATE 29405771958 Active Tu Landeros MD Active SUPER B COMPLEX/VITAMIN C ORAL TABLET 1 qd B COMPLEX- C 43789211511 No Longer Active Tu Landeros MD Active ASPIRIN EC 81 MG ORAL TABLET DELAYED RELEASE 1 po qd ASPIRIN 61193373645 Active Tu Landeros MD Active GLUCOSAMINE 500 MG TABS 2 po qd GLUCOSAMINE Active Tu Landeros MD Active FISH OIL 1000 MG ORAL CAPSULE 1 po qd OMEGA-3 FATTY ACIDS 76724059651 Active Tu Landeros MD Active METFORMIN HCL 1000 MG ORAL TABLET 1 po BID METFORMIN HCL 79182742155 Active Tu Landeros MD Active KLOR-CON 10 10 MEQ ORAL TABLET EXTENDED RELEASE 2 po qd POTASSIUM CHLORIDE 74728747549 Active Tu Landeros MD Active FUROSEMIDE 40 MG ORAL TABLET 1 po qd FUROSEMIDE 16722461474 Active Tu Landeros MD Active REQUIP 2 MG ORAL TABLET 1 po qHS PRN Restless legs ROPINIROLE HCL 39434547150 Active Tu Landerso MD Active REQUIP 2 MG ORAL TABLET Take one tablet at bedtime prn ROPINIROLE HCL 97959425335 No Longer Active Tu Landeros MD Active VENTOLIN HFA 108 (90 Base) MCG/ACT INHALATION AEROSOL SOLUTION 1-2 puffs every 4 hours if needed for cough/congestion ALBUTEROL SULFATE 10689742638 No Longer Active Ambika Aden APRN Active ZITHROMAX 250 MG ORAL TABLET 2 po today, then 1 po q days 2-5 AZITHROMYCIN 23114954340 No Longer Active Miranda Farah APRN Active FLONASE 50 MCG/ACT NASAL SUSPENSION 1 spray each nostril twice daily until bottle empty FLUTICASONE PROPIONATE 53551711735 No Longer Active Tu Landeros MD Active COLACE 100 MG ORAL CAPSULE 1 po BID PRN Constipation DOCUSATE SODIUM 35963240721 Active Tu Landeros MD Active TRUERESULT BLOOD GLUCOSE w/Device KIT test blood sugar twice daily dx 250.00 BLOOD GLUCOSE MONITORING SUPPL 24333079097 No Longer Active Tu Landeros MD Active TRUEDRAW LANCING DEVICE Test twice a day dx 250.0 LANCET DEVICES 54165385031 No Longer Active Tu Landeros MD Active PREDNISONE 20 MG ORAL TABLET 2 tablets once daily for 2 days, then 1 tablet once daily for 2 days PREDNISONE 77163547643 No Longer Active Tu Landeros MD Active DICLOFENAC SODIUM 50 MG ORAL TABLET DELAYED RELEASE 1 tablet by mouth three times a day as needed DICLOFENAC SODIUM 43017632057 No Longer Active Fab Morales DO Active EMBRACE BLOOD GLUCOSE TEST IN VITRO STRIP test blood sugar twice daily DX 250.0 GLUCOSE BLOOD 93265514202 No Longer Active Tu Landeros MD Active TRUETEST TEST IN VITRO STRIP test blood sugar three times daily dx: 250.00 GLUCOSE BLOOD 60842416113 No Longer Active Suze VOGEL Active TRUERESULT BLOOD GLUCOSE w/Device KIT use to test blood sugar tid dx: 250.00 BLOOD GLUCOSE MONITORING SUPPL 98224851439 No Longer Active Suzebianca VOGEL Active ALIGN 4 MG ORAL CAPSULE 1 tid PROBIOTIC PRODUCT 60254588573 No Longer Active Shaun Sy MD Active CIPRO 500 MG ORAL TABLET 1 bid x 14 days start 09-28-13 CIPROFLOXACIN HCL 65353395175 No Longer Active Shaun Sy MD Active TRAMADOL HCL 50 MG ORAL TABLET 1-2 tablets every 6 hours as needed for pain TRAMADOL HCL 34282463590 Active Tu Landeros MD Active HYDROCODONE-ACETAMINOPHEN 5-325 MG ORAL TABLET 1 tab by mouth every 6 hours as needed for pain HYDROCODONE-ACETAMINOPHEN 19499434918 No Longer Active Tu Landeros MD Active OMEPRAZOLE 20 MG ORAL CAPSULE DELAYED RELEASE 1 po q a.m. OMEPRAZOLE 22157888989 Active Tu Landeros MD Active GABAPENTIN 100 MG ORAL CAPSULE 1 po bid GABAPENTIN 62930931193 No Longer Active Tu Landeros MD Active B-12 100 MCG ORAL TABLET Take one by mouth daily CYANOCOBALAMIN 97551861078 No Longer Active Tu Landeros MD Active BACTRIM DS 800-160 MG ORAL TABLET 1 bid x 14 day start 09-28-13 SULFAMETHOXAZOLE-TRIMETHOPRIM 32727661072 No Longer Active Tu Landeros MD Active CARVEDILOL 12.5 MG ORAL TABLET 1 po BID CARVEDILOL 20919367098 Active Tu Landeros MD Active FENOFIBRATE 145 MG ORAL TABLET 1 po qd FENOFIBRATE 94965192153 No Longer Active JASPREET Perez Active OMEPRAZOLE 20 MG ORAL TABLET DELAYED RELEASE 1 PO 30 MIN BEFORE 1ST MEAL 2010 OMEPRAZOLE 60520337692 No Longer Active JASPREET Perez Active SIMVASTATIN 40 MG ORAL TABLET Take one by mouth daily SIMVASTATIN 35025025761 No Longer Active JASPREET Perez Active VENLAFAXINE HCL 75 MG ORAL TABLET 1 po BID VENLAFAXINE HCL 69057087742 No Longer Active JASPREET Perez Active CIPRO 500 MG ORAL TABLET 1 tablet by mouth twice daily CIPROFLOXACIN HCL 03903029732 No Longer Active Tu Landeros MD Active VENLAFAXINE HCL 37.5 MG ORAL TABLET 1 po BID VENLAFAXINE HCL 75640100754 No Longer Active Suze NUNOA Active LAMISIL 250 MG ORAL TABLET 1 po qd TERBINAFINE HCL 39426420702 No Longer Active Tu Landeros MD Active LORTAB 5-500 MG ORAL TABLET 1/2 to 1 tablet by mouth every 4 hours as needed for pain HYDROCODONE-ACETAMINOPHEN 12363393696 No Longer Active Tu Landeros MD Active HYDROCODONE-ACETAMINOPHEN 5-500 MG ORAL TABLET take one po Q 4-6 hours prn HYDROCODONE-ACETAMINOPHEN 08042173850 No Longer Active Tu Landeros MD Active BACTRIM DS 800-160 MG ORAL TABLET 1 po BID x 7 days SULFAMETHOXAZOLE-TRIMETHOPRIM 22435795716 No Longer Active Tu Landeros MD Active VENLAFAXINE HCL 75 MG ORAL TABLET 1 po BID VENLAFAXINE HCL 77440159974 No Longer Active Elvira Cervantes MD PhD Active TRAMADOL HCL 50 MG ORAL TABLET 1 tablets every 6 hours as needed for pain TRAMADOL HCL 48270054494 No Longer Active Tu Landeros MD Active ACCU-CHEDawson FASTCLIX LANCETS Use to check bloodsugar three times daily as needed LANCETS 00730557358 No Longer Active Tu Landeros MD Active ACCU-CHEDawson KEYONA PLUS IN VITRO STRIP Use for testing bloodsugars three times daily as needed GLUCOSE BLOOD 08780654469 No Longer Active Tu Landeros MD Active ACCU-CHEK KEYONA PLUS w/Device KIT Use for testing bloodsugars three times daily as needed BLOOD GLUCOSE MONITORING SUPPL 46687782833 No Longer Active Tu Landeros MD Active SPIRONOLACTONE 25 MG ORAL TABLET 0.5 tablet by mouth daily 09/09 SPIRONOLACTONE 29572462142 No Longer Active Tu Landeros MD Active ALPRAZOLAM 0.5 MG ORAL TABLET 1 tab every 6hrs as needed ALPRAZOLAM 93648904898 No Longer Active Tu Landeros MD Active AUGMENTIN 875-125 MG ORAL TABLET 1 tab by mouth twice daily with food AMOXICILLIN-POT CLAVULANATE 40435876508 No Longer Active Tu Landeros MD Active PREDNISONE 20 MG ORAL TABLET 2 tabs daily for 3 days, 1 tab daily for 3 days, 1/2 tab daily for 2 days PREDNISONE 66016101097 No Longer Active Tu Landeros MD Active XANAX 0.5 MG ORAL TABLET 1 tablet every 6 hrs prn ALPRAZOLAM 31141661426 No Longer Active Tu Landeros MD Active PREDNISONE 20 MG ORAL TABLET 2 tabs daily for 3 days, 1 tab daily for 3 days, 1/2 tab daily for 2 days PREDNISONE 72621887207 No Longer Active Tu Landeros MD Active TRIAMCINOLONE ACETONIDE 0.1 % EXTERNAL OINTMENT Apply to affected areas TID for up to 2 weeks TRIAMCINOLONE ACETONIDE 40444782467 No Longer Active Tu Landeros MD Active LORTAB 5-500 MG ORAL TABLET 1/2 to 1 tablet by mouth every 4 hours as needed for pain HYDROCODONE-ACETAMINOPHEN 97516976806 No Longer Active Tu Landeros MD Active MULTIVITAMINS TABS Take one by mouth daily MULTIPLE VITAMIN 41219703966 No Longer Active Tu Landeros MD Active MELATONIN 5 MG ORAL TABLET Take one by mouth daily MELATONIN 18351729448 No Longer Active Tu Landeros MD Active SOMA 350 MG ORAL TABLET 1 po q 6 hours prn spasm CARISOPRODOL 01246818528 No Longer Active Tu Landeros MD Active MECLIZINE HCL 25 MG ORAL TABLET CHEWABLE 1 four times a day as needed for dizziness MECLIZINE HCL 11496544082 No Longer Active Fab Morales DO Active ANGEL BREEZE 2 TEST IN VITRO DISK test tid prn GLUCOSE BLOOD 55227525935 No Longer Active Negra Scott RN Active REGLAN 10 MG ORAL TABLET 1 po TID PRN Nausea METOCLOPRAMIDE HCL 76349343714 No Longer Active Tu Landeros MD Active METFORMIN HCL 500 MG ORAL TABLET 1 PO BID METFORMIN HCL 62136639608 No Longer Active Tu Landeros MD Active AMBIEN 10 MG ORAL TABLET 1 tab by mouth at bedtime as needed for sleep 06/10 ZOLPIDEM TARTRATE 74254432073 No Longer Active Tu Landeros MD Active FLUOXETINE HCL 40 MG ORAL CAPSULE 1 po q day FLUOXETINE HCL 43242031300 No Longer Active Mayra [place] Active TRILIPIX 135 MG ORAL CAPSULE DELAYED RELEASE 1 po qd CHOLINE FENOFIBRATE 39993259827 No Longer Active Tu Landeros MD Active AMBIEN 10 MG ORAL TABLET 1 tab by mouth at bedtime as needed for sleep 06/10 AMBIEN 10 MG ORAL TABLET 812827 ZOLPIDEM TARTRATE Inactive METFORMIN HCL 500 MG ORAL TABLET 1 PO BID METFORMIN HCL 500 MG ORAL TABLET 990297 METFORMIN HCL Inactive REGLAN 10 MG ORAL TABLET 1 po TID PRN Nausea REGLAN 10 MG ORAL TABLET 476880 METOCLOPRAMIDE HCL Inactive MECLIZINE HCL 25 MG ORAL TABLET CHEWABLE 1 four times a day as needed for dizziness MECLIZINE HCL 25 MG ORAL TABLET CHEWABLE 188201 MECLIZINE HCL Inactive SOMA 350 MG ORAL TABLET 1 po q 6 hours prn spasm SOMA 350 MG ORAL TABLET 537725 CARISOPRODOL Inactive MELATONIN 5 MG ORAL TABLET Take one by mouth daily MELATONIN 5 MG ORAL TABLET 184347 MELATONIN Inactive MULTIVITAMINS TABS Take one by mouth daily MULTIVITAMINS TABS MULTIPLE VITAMIN Inactive LORTAB 5-500 MG ORAL TABLET 1/2 to 1 tablet by mouth every 4 hours as needed for pain LORTAB 5-500 MG ORAL TABLET HYDROCODONE- ACETAMINOPHEN Inactive XANAX 0.5 MG ORAL TABLET 1 tablet every 6 hrs prn XANAX 0.5 MG ORAL TABLET 068444 ALPRAZOLAM Inactive AUGMENTIN 875-125 MG ORAL TABLET 1 tab by mouth twice daily with food AUGMENTIN 875-125 MG ORAL TABLET 491463 AMOXICILLIN-POT CLAVULANATE Inactive ALPRAZOLAM 0.5 MG ORAL TABLET 1 tab every 6hrs as needed ALPRAZOLAM 0.5 MG ORAL TABLET 782179 ALPRAZOLAM Inactive SPIRONOLACTONE 25 MG ORAL TABLET 0.5 tablet by mouth daily 09/09 SPIRONOLACTONE 25 MG ORAL TABLET 744150 SPIRONOLACTONE Inactive ACCU-CHEK KEYONA PLUS w/Device KIT [...] times daily as needed ACCU-CHEK FASTCLIX LANCETS 46131577713 LANCETS Inactive TRAMADOL HCL 50 MG ORAL TABLET 1 tablets every 6 hours as needed for pain TRAMADOL HCL 50 MG ORAL TABLET 068853 TRAMADOL HCL Inactive VENLAFAXINE HCL 75 MG ORAL TABLET 1 po BID VENLAFAXINE HCL 75 MG ORAL TABLET 858039 VENLAFAXINE HCL Inactive HYDROCODONE-ACETAMINOPHEN 5-500 MG ORAL TABLET take one po Q 4-6 hours prn HYDROCODONE-ACETAMINOPHEN 5-500 MG ORAL TABLET HYDROCODONE-ACETAMINOPHEN Inactive LORTAB 5-500 MG ORAL TABLET 1/2 to 1 tablet by mouth every 4 hours as needed for pain LORTAB 5-500 MG ORAL TABLET HYDROCODONE- ACETAMINOPHEN Inactive LAMISIL 250 MG ORAL TABLET 1 po qd LAMISIL 250 MG ORAL TABLET 772240 TERBINAFINE HCL Inactive VENLAFAXINE HCL 37.5 MG ORAL TABLET 1 po BID VENLAFAXINE HCL 37.5 MG ORAL TABLET 729250 VENLAFAXINE HCL Inactive CIPRO 500 MG ORAL TABLET 1 tablet by mouth twice daily CIPRO 500 MG ORAL TABLET 871315 CIPROFLOXACIN HCL Inactive VENLAFAXINE HCL 75 MG ORAL TABLET 1 po BID VENLAFAXINE HCL 75 MG ORAL TABLET 477901 VENLAFAXINE HCL Inactive SIMVASTATIN 40 MG ORAL TABLET Take one by mouth daily SIMVASTATIN 40 MG ORAL TABLET 844353 SIMVASTATIN Inactive OMEPRAZOLE 20 MG ORAL TABLET DELAYED RELEASE 1 PO 30 MIN BEFORE 1ST MEAL 2010 OMEPRAZOLE 20 MG ORAL TABLET DELAYED RELEASE 183552 OMEPRAZOLE Inactive FENOFIBRATE 145 MG ORAL TABLET 1 po qd FENOFIBRATE 145 MG ORAL TABLET 492626 FENOFIBRATE Inactive BACTRIM DS 800-160 MG ORAL TABLET 1 bid x 14 day start 09-28-13 BACTRIM DS 800-160 MG ORAL TABLET 362560 SULFAMETHOXAZOLE- TRIMETHOPRIM Inactive B-12 100 MCG ORAL TABLET Take one by mouth daily B-12 100 MCG ORAL TABLET CYANOCOBALAMIN Inactive GABAPENTIN 100 MG ORAL CAPSULE 1 po bid GABAPENTIN 100 MG ORAL CAPSULE 342974 GABAPENTIN Inactive HYDROCODONE-ACETAMINOPHEN 5-325 MG ORAL TABLET 1 tab by mouth every 6 hours as needed for pain HYDROCODONE-ACETAMINOPHEN 5-325 MG ORAL TABLET 857652 HYDROCODONE-ACETAMINOPHEN Inactive CIPRO 500 MG ORAL TABLET 1 bid x 14 days start 814 CIPRO 500 MG ORAL TABLET 514311 CIPROFLOXACIN HCL Inactive ALIGN 4 MG ORAL [...] SODIUM 50 MG ORAL TABLET DELAYED RELEASE 509756 DICLOFENAC SODIUM Inactive PREDNISONE 20 MG ORAL TABLET 2 tablets once daily for 2 days, then 1 tablet once daily for 2 days PREDNISONE 20 MG ORAL TABLET 119530 PREDNISONE Inactive TRUEDRAW LANCING DEVICE Test twice a day dx 250.0 TRUEDRAW LANCING DEVICE LANCET DEVICES Inactive TRUERESULT BLOOD GLUCOSE w/Device KIT test blood sugar twice daily dx 250.00 TRUERESULT BLOOD GLUCOSE w/Device KIT BLOOD GLUCOSE MONITORING SUPPL Inactive FLONASE 50 MCG/ACT NASAL SUSPENSION 1 spray each nostril twice daily until bottle empty FLONASE 50 MCG/ACT NASAL SUSPENSION 9797322 FLUTICASONE PROPIONATE Inactive VENTOLIN HFA 108 (90 Base) MCG/ACT INHALATION AEROSOL SOLUTION 1-2 puffs every 4 hours if needed for cough/congestion VENTOLIN HFA 108 (90 Base) MCG/ACT INHALATION AEROSOL SOLUTION ALBUTEROL SULFATE Inactive REQUIP 2 MG ORAL TABLET Take one tablet at bedtime prn REQUIP 2 MG ORAL TABLET 791314 ROPINIROLE HCL Inactive SUPER B COMPLEX/VITAMIN C ORAL TABLET 1 qd SUPER B COMPLEX/VITAMIN C ORAL TABLET 36561752585 B COMPLEX-C Inactive TRUEDRAW LANCING DEVICE test blood sugar twice daily dx: 250.00 TRUEDRAW LANCING DEVICE LANCET DEVICES Inactive TRUETEST TEST IN VITRO STRIP test blood sugar twice daily. DX 250.0 TRUETEST TEST IN VITRO STRIP GLUCOSE BLOOD Inactive CYCLOBENZAPRINE HCL 10 MG ORAL TABLET 1 po TID PRN Muscle Spasm CYCLOBENZAPRINE HCL 10 MG ORAL TABLET 843074 CYCLOBENZAPRINE HCL Inactive DICLOFENAC SODIUM 50 MG ORAL TABLET DELAYED RELEASE 1 po BID PRN Pain DICLOFENAC SODIUM 50 MG ORAL TABLET DELAYED RELEASE 822443 DICLOFENAC SODIUM Inactive DICLOFENAC SODIUM 75 MG ORAL TABLET DELAYED RELEASE 1 po BID PRN Pain DICLOFENAC SODIUM 75 MG ORAL TABLET DELAYED RELEASE 999050 DICLOFENAC SODIUM Inactive NASONEX 50 MCG/ACT NASAL SUSPENSION 2 actuations in each nostril q day 07/15 NASONEX 50 MCG/ACT NASAL SUSPENSION 7764315 MOMETASONE FUROATE Inactive GUAIFENESIN ER 600 MG ORAL TABLET EXTENDED RELEASE 12 HOUR 1 twice a day as needed for congestion GUAIFENESIN ER 600 MG ORAL TABLET EXTENDED RELEASE 12 HOUR GUAIFENESIN Inactive AZITHROMYCIN 250 MG ORAL TABLET 2 po qd x 1, then 1 po qd x 4 AZITHROMYCIN 250 MG ORAL TABLET 397810 AZITHROMYCIN Inactive PROMETHAZINE-CODEINE 6.25-10 MG/5ML ORAL SYRUP 5ml po q6hr PRN Cough PROMETHAZINE-CODEINE 6.25-10 MG/5ML ORAL SYRUP 864620 PROMETHAZINE-CODEINE Inactive TRILIPIX 135 MG ORAL CAPSULE DELAYED RELEASE 1 q hs TRILIPIX 135 MG ORAL CAPSULE DELAYED RELEASE 030037 CHOLINE FENOFIBRATE Inactive TRIAMCINOLONE ACETONIDE 0.1 % EXTERNAL OINTMENT Apply to affected areas TID for up to 2 weeks TRIAMCINOLONE ACETONIDE 0.1 % EXTERNAL OINTMENT 0537364 TRIAMCINOLONE ACETONIDE Inactive PREDNISONE 20 MG ORAL TABLET 2 tabs daily for 3 days, 1 tab daily for 3 days, 1/2 tab daily for 2 days PREDNISONE 20 MG ORAL TABLET 921946 PREDNISONE Inactive PREDNISONE 20 MG ORAL TABLET 2 tabs daily for 3 days, 1 tab daily for 3 days, 1/2 tab daily for 2 days PREDNISONE 20 MG ORAL TABLET 677926 PREDNISONE Inactive BACTRIM DS 800-160 MG ORAL TABLET 1 po BID x 7 days BACTRIM DS 800-160 MG ORAL TABLET 169396 SULFAMETHOXAZOLE-TRIMETHOPRIM Inactive ZITHROMAX 250 MG ORAL TABLET 2 po today, then 1 po q days 2-5 ZITHROMAX 250 MG ORAL TABLET 679258 AZITHROMYCIN Inactive PREDNISONE 20 MG ORAL TABLET 2 po qd x 5 days PREDNISONE 20 MG ORAL TABLET 174994 PREDNISONE Inactive Advance Directives Directive Description Start Date DISCUSSED WITH PATIENT -- NO DECISION MADE Immunizations Vaccine Administration Date Value Standard Description Seasonal influenza vaccine, injectable, containing preservative, for > 3 years old (Afluria, FluLaval, Fluzone, Fluvirin, Fluarix, Agriflu(>=18 yo)) Fluzone (>3 yrs.) [[id number]] Influenza, seasonal, injectable influenza immunization (Flu Vax) has been administered 02/22/2012 influenza virus vaccine, unspecified formulation Seasonal influenza vaccine, injectable, containing preservative, for > 3 years old (Afluria, FluLaval, Fluzone, Fluvirin, Fluarix, Agriflu(>=18 yo)) Fluzone (>3 yrs.) [[id number]] Influenza, seasonal, injectable Vital Signs Date Name Value Unit Range Description blood pressure, diastolic 82 mm[Hg] BP ac blood pressure, systolic 134 mm[Hg] BP sys height E&M 60.25 [in_us] Bdy height pulse rate E&M 69 /min Heart rate temperature E&M 96.6 [degF] Body temperature weight E&M 297.5 [lb_av] Weight Measured blood pressure, diastolic 56 mm[Hg] BP ca blood pressure, systolic 150 mm[Hg] BP sys [...] ... - Chemistry sodium, serum 141 mmol/L 617-471 5973/01/16 carbon dioxide, venous blood 28.3 mmol/L 21.0-32.0 [...] 6.7 % 4.3-6.0 cholesterol, serum 106 mg/dL 189-274 5319/01/16 triglyceride, serum, fasting 173 mg/dL 30-200 HDL [...] Magnesium - Chemistry sodium, serum 142 mmol/L 845-565 4394/07/16 carbon dioxide, venous blood 29.4 mmol/L 21.0-32.0 [...] Panel - Chemistry cholesterol, serum 170 mg/dL 032-956 3493/07/16 triglyceride, serum, fasting 266 mg/dL 30-200 HDL cholesterol, serum 42 mg/dL 32-60 LDL cholesterol, serum 75 mg/dL 0-130 Encounters Code Encounter Date Provider Facility CPT-72171 Level 4 Est. Patient 14:46:36 CDT Tu Landeros MD [facility] CPT-95008 Level 3 Est. Patient 10:28:05 CDT Tu Landeros MD [facility] CPT-90445 Level 3 Est. Patient 09:11:32 CDT Tu Landeros MD [facility] CPT-69562 Level 3 Est. Patient 10:13:19 COOK FROZEN DESSERT Lesli Kellogg APRN [facility] CPT-63019 Level 4 Est. Patient 13:42:02 COOK FROZEN DESSERT Tu Landeros MD [facility] CPT-23544 Level 3 Est. Patient 14:20:36 CDT Tu Landeros MD [facility] CPT-50849 Level 4 Est. Patient 14:28:34 CDT Tu Landeros MD [facility] CPT-94518 Level 3 Est. Patient 13:33:09 CDT Tu Landeros MD [facility] CPT-95248 Level 4 Est. Patient 14:29:21 CDT Tu Landeros MD [facility] CPT-31911 Level 4 Est. Patient 09:08:17 COOK FROZEN DESSERT Tu Landeros MD [facility] CPT-11119 Level 4 Est. Patient 14:40:19 CDT Tu Landeros MD [facility] CPT-93296 Level 4 Est. Patient 14:06:04 COOK FROZEN DESSERT Tu Landeros MD [facility] CPT-22669 Level 3 Est. Patient 14:05:18 COOK FROZEN DESSERT Tu Landeros MD [facility] CPT-98905 Level 3 Est. Patient 10:06:54 [employer] DESSERT Miranda Farah APRN [facility] CPT-30652 Level 4 Est. Patient 13:50:18 COOK FROZEN DESSERT Tu Landeros MD [facility] CPT-00778 Level 3 Est. Patient 10:30:04 CDT Tu Landeros MD [facility] CPT-44418 Level 4 Est. Patient 11:03:38 CDT Tu Landeros MD [facility] CPT-47076 Level 3 Est. Patient 10:20:44 CDT Fab Morales DO [facility] CPT-25706 Level 4 Est. Patient 14:38:57 CDT Tu Landeros MD [facility] CPT-57386 Level 4 Est. Patient 14:27:39 COOK FROZEN DESSERT Tu Landeros MD [facility] CPT-58883 Level 4 Est. Patient 09:45:25 CDT Tu Landeros MD [facility] CPT-32906 Level 4 Est. Patient 09:05:20 COOK FROZEN DESSERT Tu Landeros MD [facility] CPT-22743 Level 4 Est. Patient 14:09:06 CDT Tu Landeros MD [facility] CPT-21110 Level 3 Est. Patient 13:36:54 CDT Tu Landeros MD [facility] CPT-52964 Level 3 Est. Patient 08:59:14 CDT Tu Landeros MD [facility] CPT-22503 Level 3 Est. Patient 13:48:35 CDT Fab Morales DO [facility] CPT-20712 Level 4 Est. Patient 10:05:48 CDT Tu Landeros MD [facility] CPT-65239 Level 3 Est. Patient 13:38:[address] [facility] CPT-80439 Level 5 Est. Patient 08:08:[address] [facility] CPT-36613 Level 4 Est. Patient 14:23:38 CDT Tu Landeros MD [facility] CPT-92710 Level 3 Est. Patient 11:44:04 CDT Tu Landeros MD [facility] CPT-88890 Level 3 Est. Patient 11:03:20 COOK FROZEN DESSERT Tu Landeros MD [facility] CPT-89329 Level 3 Est. Patient 11:03:14 COOK FROZEN DESSERT Tu Landeros MD [facility] CPT-29117 Level 3 Est. Patient 12:42:49 CDT Tu Landeros MD [facility] CPT-17011 Level 3 Est. Patient 11:52:06 CDT Tu Landeros MD [facility] CPT-80339 Level 3 Est. Patient 13:58:11 CDT Tu Landeros MD [facility] CPT-92365 Level 3 Est. Patient 17:50:07 CDT Fab Morales DO [facility] CPT-89333 Level 3 Est. Patient 12:06:29 CDT Elvira Cervantes MD PhD [facility] CPT-05685 Level 3 Est. Patient 15:50:32 CDT Tu Landeros MD [facility] CPT-82990 Level 4 Est. Patient 16:08:29 CDT Tu Landeros MD [facility] CPT-11704 Level 3 Est. Patient 16:04:19 CDT Tu Landeros MD [facility] CPT-84666 Level 3 Est. Patient 11:22:30 [employer] Tu Landeros MD [facility] CPT-54084 Level 4 Est. Patient 16:24:02 [employer] Tu Landeros MD [facility] CPT-72190 Level 3 Est. Patient 17:21:23 [employer] Tu Landeros MD [facility] Procedures Code Procedure Name Date Entry Date Standard Description CPT-G0439 Subsequent Annual Wellness Exam 14:46:36 CDT CPT-25173 Shoulder, right, comp min 2V - XRAY USE ONLY 13:50:22 CDT CPT-G0009 Administration of Pneumococcal Vaccine 15:08:26 CDT CPT-93112 Prevnar 13 Intramuscular Suspension 15:08:26 CDT 10/08 CPT-G0439 Subsequent Annual Wellness Exam 14:29:22 CDT CPT-61552 Venipuncture Draw Fee 13:15:35 CDT CPT-61967 Magnesium - LAB USE ONLY 11:14:20 [employer] CPT-25366 Lipid - LAB USE ONLY 11:14:20 [employer] CPT-33890 HGBA1C - LAB USE ONLY 11:14:20 [employer] CPT-53268 CMP - LAB USE ONLY 11:14:19 [employer] CPT-99464 CBC - LAB USE ONLY 11:14:19 [employer] CPT-20052 Venipuncture Draw Fee 11:14:18 [employer] CPT-81775 First Vx - Ix admin for Medicare patients 16:46:52 CDT CPT-74155 Fluzone Preservative Free Intramuscular Suspension 16:46 :51 CDT CPT-67431 CBC - LAB USE ONLY 17:14:46 CDT CPT-84412 HGBA1C - LAB USE ONLY 17:14:46 CDT CPT-44920 Venipuncture Draw Fee 17:14:46 CDT CPT-G0438 Initial Annual Wellness Exam 14:13:04 CDT CPT-43008 Breathing Tx 10:06:54 [employer] CPT-83928 Postop F/U Visit 10:02:45 CDT CPT-LR Lesion Removal 09:02:56 CDT CPT-JTINJ Asp/Joint Injection 15:51:27 [employer] CPT-OV Office Visit 15:52:02 [employer] CPT-OV Office Visit 15:45:11 CDT CPT-000 Give Zostavax 14:09:06 CDT CPT-74477 Administration single or combination vaccine inc oral 15 :19:04 CDT CPT-97538 Zoster Vaccine (Zostavax) 15:19:04 CDT CPT-18370 Administration single or combination vaccine inc oral 20 :51:03 CDT CPT-85818 Influenza split virus > age 3 20:51:03 CDT CPT-65471 No Charge Offi Visit 14:52:03 CDT CPT-OV Office Visit 14:57:43 CDT CPT-OV Office Visit 15:22:32 CDT CPT-60915 Administration single or combination vaccine inc oral 11 :33:15 CDT CPT-34898 Influenza split virus > age 3 11:33:15 CDT
--- OUTSIDE RECORDS SUMMARY | 2018-04-25 11:57 | XMS REPORT | Clinical Summary ---
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2 Inactive Tu Landeros MD ARTHRITIS ICD-716.90 Inactive Tu Landeros MD PRESSURE ULCER UNSPECIFIED SITE ICD-707.00 Inactive Tu Landeros MD ONYCHOMYCOSIS ICD-110.1 Tessa Landeros MD Upper respiratory infection, viral ICD-465.9 Inactive Shaun Sy MD Open wound of other and unspecified parts of trunk, complicated ICD-879.7 Inactive Tu Landeros MD Knee pain, left, acute ICD-719.46 Inactive Tu Landeros MD Osteoarthritis ICD-715.90 Inactive Tu Landeros MD Ear pain, bilateral ICD-388.70 Tessa Landeros MD Open wound of abdominal wall, anterior, complicated ICD-879.3 Inactive Tu Landeros MD Upper respiratory infection, viral ICD-465.9 Inactive Tu Landeros MD Sinusitis - acute ICD-461.9 Inactive Tu Landeros MD Leg pain, left ICD-729.5 Inactive Tu Landeros MD Sebaceous cyst ICD-706.2 Inactive Tu Landeros MD Pain in unspecified foot ICD-729.5 Inactive Tu Landeros MD Shoulder pain, right ICD-719.41 Inactive Tu Landeros MD Great toe pain ICD-729.5 Inactive Tu Landeros MD Hot flashes ICD-627.2 Inactive Tu Landeros MD Vision impairment, both eyes, impairment level not further specified ICD- 369.20 Inactive Tu Landeros MD Upper respiratory infection, viral ICD-465.9 Inactive Tu Landeros MD Medication List Medication Instructions Start Date Stop Date Generic Name NDC Status Provider Patient Instruction LOVAZA 1 GM ORAL CAPSULE 1 po qd [id number] ETHYL ESTERS [id number] Active Tu Landeros MD Active TRILIPIX 135 MG ORAL CAPSULE DELAYED RELEASE 1 q hs CHOLINE FENOFIBRATE 17831199799 No Longer Active Cynthia NUNOA Active TRIAMCINOLONE ACETONIDE 0.1 % EXTERNAL CREAM Apply to affected area TID for up to 2 weeks TRIAMCINOLONE ACETONIDE 28268221462 Active Tu Landeros MD Active INDOMETHACIN 50 MG ORAL CAPSULE 1 po TID PRN Pain INDOMETHACIN 15483870074 Active Tu Landeros MD Active PROMETHAZINE-CODEINE 6.25-10 MG/5ML ORAL SYRUP 5ml po q6hr PRN Cough PROMETHAZINE-CODEINE 57225112135 No Longer Active Tu Landeros MD Active AZITHROMYCIN 250 MG ORAL TABLET 2 po qd x 1, then 1 po qd x 4 AZITHROMYCIN 77507058714 No Longer Active Tu Landeros MD Active GUAIFENESIN ER 600 MG ORAL TABLET EXTENDED RELEASE 12 HOUR 1 twice a day as needed for congestion GUAIFENESIN 44982595781 No Longer Active Tu Landeros MD Active PREDNISONE 20 MG ORAL TABLET 2 po qd x 5 days PREDNISONE 46753274907 No Longer Active Tu Landeros MD Active FLUTICASONE PROPIONATE 50 MCG/ACT NASAL SUSPENSION 2 sprays/nostril qd PRN Congestion/Allergies FLUTICASONE PROPIONATE 82395059437 Active Tu Landeros MD Active NASONEX 50 MCG/ACT NASAL SUSPENSION 2 actuations in each nostril q day 07/15 MOMETASONE FUROATE 85435473574 No Longer Active Tu Landeros MD Active MAGNESIUM OXIDE 400 MG ORAL TABLET 1 po BID MAGNESIUM OXIDE 41339038220 Active Tu Landeros MD Active SIMVASTATIN 20 MG ORAL TABLET 0.5 po qHS SIMVASTATIN 21048654798 Active Tu Landeros MD Active DICLOFENAC SODIUM 75 MG ORAL TABLET DELAYED RELEASE 1 po BID PRN Pain DICLOFENAC SODIUM 55441378646 No Longer Active Tu Landeros MD Active GABAPENTIN 100 MG ORAL CAPSULE 1 po TID GABAPENTIN 64608625086 Active Tu Landeros MD Active DICLOFENAC SODIUM 50 MG ORAL TABLET DELAYED RELEASE 1 po BID PRN Pain DICLOFENAC SODIUM 23636924012 No Longer Active Tu Landeros MD Active CYCLOBENZAPRINE HCL 10 MG ORAL TABLET 1 po TID PRN Muscle Spasm CYCLOBENZAPRINE HCL 49328599662 No Longer Active Tu Landeros MD Active INVOKANA 100 MG ORAL TABLET 1 po qd CANAGLIFLOZIN 25098771804 Active José Luis Becerra MD Active GLIPIZIDE 5 MG ORAL TABLET 1 po qd GLIPIZIDE 40219463166 No Longer Active Tu Landeros MD Active VENLAFAXINE HCL 75 MG ORAL TABLET 1 po BID VENLAFAXINE HCL 57322438537 Active Tu Landeros MD Active GLIMEPIRIDE 1 MG ORAL TABLET 1 po qd GLIMEPIRIDE 98153758282 No Longer Active Tu Landeros MD Active TRUE METRIX BLOOD GLUCOSE TEST IN VITRO STRIP Test blood sugar BID Dx: E11.9 GLUCOSE BLOOD 74236136112 Active Tu Landeros MD Active TRUE METRIX AIR GLUCOSE METER w/Device KIT Test blood glucose BID Dx: E11.9 BLOOD GLUCOSE MONITORING SUPPL 58635915882 Active Tu Landeros MD Active TRUETEST TEST IN VITRO STRIP test blood sugar twice daily. DX 250.0 GLUCOSE BLOOD 35086181717 No Longer Active Mirna Stanley LPN Active TRUEDRAW LANCING DEVICE test blood sugar twice daily dx: 250.00 LANCET DEVICES 86420753181 No Longer Active Mirna Stanley LPN Active ENALAPRIL MALEATE 20 MG ORAL TABLET 2 po qd ENALAPRIL MALEATE 88980787818 Active Tu Landeros MD Active SUPER B COMPLEX/VITAMIN C ORAL TABLET 1 qd B COMPLEX- C 82641703550 No Longer Active Tu Landeros MD Active ASPIRIN EC 81 MG ORAL TABLET DELAYED RELEASE 1 po qd ASPIRIN 99545798855 Active Tu Landeros MD Active GLUCOSAMINE 500 MG TABS 2 po qd GLUCOSAMINE Active Tu Landeros MD Active FISH OIL 1000 MG ORAL CAPSULE 1 po qd OMEGA-3 FATTY ACIDS 72422702228 Active Tu Landeros MD Active METFORMIN HCL 1000 MG ORAL TABLET 1 po BID METFORMIN HCL 62731079921 Active Tu Landeros MD Active KLOR-CON 10 10 MEQ ORAL TABLET EXTENDED RELEASE 2 po qd POTASSIUM CHLORIDE 50551769250 Active Tu Landeros MD Active FUROSEMIDE 40 MG ORAL TABLET 1 po qd FUROSEMIDE 97873346122 Active Tu Landeros MD Active REQUIP 2 MG ORAL TABLET 1 po qHS PRN Restless legs ROPINIROLE HCL 98441049059 Active Tu Landeros MD Active REQUIP 2 MG ORAL TABLET Take one tablet at bedtime prn ROPINIROLE HCL 21199797492 No Longer Active Tu Landeros MD Active VENTOLIN HFA 108 (90 Base) MCG/ACT INHALATION AEROSOL SOLUTION 1-2 puffs every 4 hours if needed for cough/congestion ALBUTEROL SULFATE 24785956392 No Longer Active Ambika Aden APRN Active ZITHROMAX 250 MG ORAL TABLET 2 po today, then 1 po q days 2-5 AZITHROMYCIN 34456339454 No Longer Active Miranda Farah APRN Active FLONASE 50 MCG/ACT NASAL SUSPENSION 1 spray each nostril twice daily until bottle empty FLUTICASONE PROPIONATE 04257470194 No Longer Active Tu Landeros MD Active COLACE 100 MG ORAL CAPSULE 1 po BID PRN Constipation DOCUSATE SODIUM 22695926552 Active Tu Landeros MD Active TRUERESULT BLOOD GLUCOSE w/Device KIT test blood sugar twice daily dx 250.00 BLOOD GLUCOSE MONITORING SUPPL 35132757103 No Longer Active Tu Landeros MD Active TRUEDRAW LANCING DEVICE Test twice a day dx 250.0 LANCET DEVICES 99722020714 No Longer Active Tu Landeros MD Active PREDNISONE 20 MG ORAL TABLET 2 tablets once daily for 2 days, then 1 tablet once daily for 2 days PREDNISONE 42359260090 No Longer Active Tu Landeros MD Active DICLOFENAC SODIUM 50 MG ORAL TABLET DELAYED RELEASE 1 tablet by mouth three times a day as needed DICLOFENAC SODIUM 41598137263 No Longer Active Fab Morales DO Active EMBRACE BLOOD GLUCOSE TEST IN VITRO STRIP test blood sugar twice daily DX 250.0 GLUCOSE BLOOD 80408976411 No Longer Active Tu Landeros MD Active TRUETEST TEST IN VITRO STRIP test blood sugar three times daily dx: 250.00 GLUCOSE BLOOD 94720374930 No Longer Active Suze VOGEL Active TRUERESULT BLOOD GLUCOSE w/Device KIT use to test blood sugar tid dx: 250.00 BLOOD GLUCOSE MONITORING SUPPL 56728669855 No Longer Active Suzebianca VOGEL Active ALIGN 4 MG ORAL CAPSULE 1 tid PROBIOTIC PRODUCT 59076821614 No Longer Active Shaun Sy MD Active CIPRO 500 MG ORAL TABLET 1 bid x 14 days start 09-28-13 CIPROFLOXACIN HCL 18279774298 No Longer Active Shaun Sy MD Active TRAMADOL HCL 50 MG ORAL TABLET 1-2 tablets every 6 hours as needed for pain TRAMADOL HCL 63261333372 Active Tu Landeros MD Active HYDROCODONE-ACETAMINOPHEN 5-325 MG ORAL TABLET 1 tab by mouth every 6 hours as needed for pain HYDROCODONE-ACETAMINOPHEN 00433031178 No Longer Active Tu Landeros MD Active OMEPRAZOLE 20 MG ORAL CAPSULE DELAYED RELEASE 1 po q a.m. OMEPRAZOLE 17281213251 Active Tu Landeros MD Active GABAPENTIN 100 MG ORAL CAPSULE 1 po bid GABAPENTIN 33887639449 No Longer Active Tu Landeros MD Active B-12 100 MCG ORAL TABLET Take one by mouth daily CYANOCOBALAMIN 40234085930 No Longer Active Tu Landeros MD Active BACTRIM DS 800-160 MG ORAL TABLET 1 bid x 14 day start 09-28-13 SULFAMETHOXAZOLE-TRIMETHOPRIM 47055690657 No Longer Active Tu Landeros MD Active CARVEDILOL 12.5 MG ORAL TABLET 1 po BID CARVEDILOL 73341929130 Active Tu Landeros MD Active FENOFIBRATE 145 MG ORAL TABLET 1 po qd FENOFIBRATE 32058579926 No Longer Active JASPREET Perez Active OMEPRAZOLE 20 MG ORAL TABLET DELAYED RELEASE 1 PO 30 MIN BEFORE 1ST MEAL 2010 OMEPRAZOLE 33235298448 No Longer Active JASPREET Perez Active SIMVASTATIN 40 MG ORAL TABLET Take one by mouth daily SIMVASTATIN 38183100317 No Longer Active JASPREET Perez Active VENLAFAXINE HCL 75 MG ORAL TABLET 1 po BID VENLAFAXINE HCL 09977164567 No Longer Active JASPREET Perez Active CIPRO 500 MG ORAL TABLET 1 tablet by mouth twice daily CIPROFLOXACIN HCL 88432259774 No Longer Active Tu Landeros MD Active VENLAFAXINE HCL 37.5 MG ORAL TABLET 1 po BID VENLAFAXINE HCL 41224644173 No Longer Active Suze NUNOA Active LAMISIL 250 MG ORAL TABLET 1 po qd TERBINAFINE HCL 28045120993 No Longer Active Tu Landeros MD Active LORTAB 5-500 MG ORAL TABLET 1/2 to 1 tablet by mouth every 4 hours as needed for pain HYDROCODONE-ACETAMINOPHEN 65632540369 No Longer Active Tu Landeros MD Active HYDROCODONE-ACETAMINOPHEN 5-500 MG ORAL TABLET take one po Q 4-6 hours prn HYDROCODONE-ACETAMINOPHEN 86817881413 No Longer Active Tu Landeros MD Active BACTRIM DS 800-160 MG ORAL TABLET 1 po BID x 7 days SULFAMETHOXAZOLE-TRIMETHOPRIM 71221414450 No Longer Active Tu Landeros MD Active VENLAFAXINE HCL 75 MG ORAL TABLET 1 po BID VENLAFAXINE HCL 39734919455 No Longer Active Elvira Cervantes MD PhD Active TRAMADOL HCL 50 MG ORAL TABLET 1 tablets every 6 hours as needed for pain TRAMADOL HCL 52153653223 No Longer Active Tu Landeros MD Active ACCU-[place]ED[place] FASTCLIX LANCETS Use to check bloodsugar three times daily as needed LANCETS 20783503595 No Longer Active Tu Landeros MD Active ACCU-CHED[place]son KEYONA PLUS IN VITRO STRIP Use for testing bloodsugars three times daily as needed GLUCOSE BLOOD 14394096396 No Longer Active Tu Landeros MD Active ACCU-CHEK KEYONA PLUS w/Device KIT Use for testing bloodsugars three times daily as needed BLOOD GLUCOSE MONITORING SUPPL 52510761842 No Longer Active Tu Landeros MD Active SPIRONOLACTONE 25 MG ORAL TABLET 0.5 tablet by mouth daily 09/09 SPIRONOLACTONE 96264432025 No Longer Active Tu Landeros MD Active ALPRAZOLAM 0.5 MG ORAL TABLET 1 tab every 6hrs as needed ALPRAZOLAM 41225804833 No Longer Active Tu Landeros MD Active AUGMENTIN 875-125 MG ORAL TABLET 1 tab by mouth twice daily with food AMOXICILLIN-POT CLAVULANATE 66647176892 No Longer Active Tu Landeros MD Active PREDNISONE 20 MG ORAL TABLET 2 tabs daily for 3 days, 1 tab daily for 3 days, 1/2 tab daily for 2 days PREDNISONE 41948466209 No Longer Active Tu Landeros MD Active XANAX 0.5 MG ORAL TABLET 1 tablet every 6 hrs prn ALPRAZOLAM 47331768591 No Longer Active Tu Landeros MD Active PREDNISONE 20 MG ORAL TABLET 2 tabs daily for 3 days, 1 tab daily for 3 days, 1/2 tab daily for 2 days PREDNISONE 87666168755 No Longer Active Tu Landeros MD Active TRIAMCINOLONE ACETONIDE 0.1 % EXTERNAL OINTMENT Apply to affected areas TID for up to 2 weeks TRIAMCINOLONE ACETONIDE 48077454552 No Longer Active Tu Landeros MD Active LORTAB 5-500 MG ORAL TABLET 1/2 to 1 tablet by mouth every 4 hours as needed for pain HYDROCODONE-ACETAMINOPHEN 54305184463 No Longer Active Tu Landeros MD Active MULTIVITAMINS TABS Take one by mouth daily MULTIPLE VITAMIN 60417249359 No Longer Active Tu Landeros MD Active MELATONIN 5 MG ORAL TABLET Take one by mouth daily MELATONIN 68391079457 No Longer Active Tu Landeros MD Active SOMA 350 MG ORAL TABLET 1 po q 6 hours prn spasm CARISOPRODOL 12061281165 No Longer Active Tu Landeros MD Active MECLIZINE HCL 25 MG ORAL TABLET CHEWABLE 1 four times a day as needed for dizziness MECLIZINE HCL 54892545925 No Longer Active Fab Morales DO Active ANGEL BREEZE 2 TEST IN VITRO DISK test tid prn GLUCOSE BLOOD 26266497455 No Longer Active Negra Scott RN Active REGLAN 10 MG ORAL TABLET 1 po TID PRN Nausea METOCLOPRAMIDE HCL 66827207149 No Longer Active Tu Landeros MD Active METFORMIN HCL 500 MG ORAL TABLET 1 PO BID METFORMIN HCL 38829022423 No Longer Active Tu Landeros MD Active AMBIEN 10 MG ORAL TABLET 1 tab by mouth at bedtime as needed for sleep 06/10 ZOLPIDEM TARTRATE 13384324441 No Longer Active Tu Landeros MD Active FLUOXETINE HCL 40 MG ORAL CAPSULE 1 po q day FLUOXETINE HCL 69606795931 No Longer Active Mayra [place] Active TRILIPIX 135 MG ORAL CAPSULE DELAYED RELEASE 1 po qd CHOLINE FENOFIBRATE 82236534535 No Longer Active Tu Landeros MD Active AMBIEN 10 MG ORAL TABLET 1 tab by mouth at bedtime as needed for sleep 06/10 AMBIEN 10 MG ORAL TABLET 367739 ZOLPIDEM TARTRATE Inactive METFORMIN HCL 500 MG ORAL TABLET 1 PO BID METFORMIN HCL 500 MG ORAL TABLET 746972 METFORMIN HCL Inactive REGLAN 10 MG ORAL TABLET 1 po TID PRN Nausea REGLAN 10 MG ORAL TABLET 432465 METOCLOPRAMIDE HCL Inactive MECLIZINE HCL 25 MG ORAL TABLET CHEWABLE 1 four times a day as needed for dizziness MECLIZINE HCL 25 MG ORAL TABLET CHEWABLE 314785 MECLIZINE HCL Inactive SOMA 350 MG ORAL TABLET 1 po q 6 hours prn spasm SOMA 350 MG ORAL TABLET 154105 CARISOPRODOL Inactive MELATONIN 5 MG ORAL TABLET Take one by mouth daily MELATONIN 5 MG ORAL TABLET 460254 MELATONIN Inactive MULTIVITAMINS TABS Take one by mouth daily MULTIVITAMINS TABS MULTIPLE VITAMIN Inactive LORTAB 5-500 MG ORAL TABLET 1/2 to 1 tablet by mouth every 4 hours as needed for pain LORTAB 5-500 MG ORAL TABLET HYDROCODONE- ACETAMINOPHEN Inactive XANAX 0.5 MG ORAL TABLET 1 tablet every 6 hrs prn XANAX 0.5 MG ORAL TABLET 755256 ALPRAZOLAM Inactive AUGMENTIN 875-125 MG ORAL TABLET 1 tab by mouth twice daily with food AUGMENTIN 875-125 MG ORAL TABLET 831521 AMOXICILLIN-POT CLAVULANATE Inactive ALPRAZOLAM 0.5 MG ORAL TABLET 1 tab every 6hrs as needed ALPRAZOLAM 0.5 MG ORAL TABLET 371835 ALPRAZOLAM Inactive SPIRONOLACTONE 25 MG ORAL TABLET 0.5 tablet by mouth daily 09/09 SPIRONOLACTONE 25 MG ORAL TABLET 955781 SPIRONOLACTONE Inactive ACCU-CHEK KEYONA PLUS w/Device KIT [...] times daily as needed ACCU-CHEK FASTCLIX LANCETS 24672910021 LANCETS Inactive TRAMADOL HCL 50 MG ORAL TABLET 1 tablets every 6 hours as needed for pain TRAMADOL HCL 50 MG ORAL TABLET 512219 TRAMADOL HCL Inactive VENLAFAXINE HCL 75 MG ORAL TABLET 1 po BID VENLAFAXINE HCL 75 MG ORAL TABLET 535794 VENLAFAXINE HCL Inactive HYDROCODONE-ACETAMINOPHEN 5-500 MG ORAL TABLET take one po Q 4-6 hours prn HYDROCODONE-ACETAMINOPHEN 5-500 MG ORAL TABLET HYDROCODONE-ACETAMINOPHEN Inactive LORTAB 5-500 MG ORAL TABLET 1/2 to 1 tablet by mouth every 4 hours as needed for pain LORTAB 5-500 MG ORAL TABLET HYDROCODONE- ACETAMINOPHEN Inactive LAMISIL 250 MG ORAL TABLET 1 po qd LAMISIL 250 MG ORAL TABLET 751502 TERBINAFINE HCL Inactive VENLAFAXINE HCL 37.5 MG ORAL TABLET 1 po BID VENLAFAXINE HCL 37.5 MG ORAL TABLET 851681 VENLAFAXINE HCL Inactive CIPRO 500 MG ORAL TABLET 1 tablet by mouth twice daily CIPRO 500 MG ORAL TABLET 056917 CIPROFLOXACIN HCL Inactive VENLAFAXINE HCL 75 MG ORAL TABLET 1 po BID VENLAFAXINE HCL 75 MG ORAL TABLET 535381 VENLAFAXINE HCL Inactive SIMVASTATIN 40 MG ORAL TABLET Take one by mouth daily SIMVASTATIN 40 MG ORAL TABLET 834290 SIMVASTATIN Inactive OMEPRAZOLE 20 MG ORAL TABLET DELAYED RELEASE 1 PO 30 MIN BEFORE 1ST MEAL 2010 OMEPRAZOLE 20 MG ORAL TABLET DELAYED RELEASE 339418 OMEPRAZOLE Inactive FENOFIBRATE 145 MG ORAL TABLET 1 po qd FENOFIBRATE 145 MG ORAL TABLET 920588 FENOFIBRATE Inactive BACTRIM DS 800-160 MG ORAL TABLET 1 bid x 14 day start 09-28-13 BACTRIM DS 800-160 MG ORAL TABLET 774586 SULFAMETHOXAZOLE- TRIMETHOPRIM Inactive B-12 100 MCG ORAL TABLET Take one by mouth daily B-12 100 MCG ORAL TABLET CYANOCOBALAMIN Inactive GABAPENTIN 100 MG ORAL CAPSULE 1 po bid GABAPENTIN 100 MG ORAL CAPSULE 752037 GABAPENTIN Inactive HYDROCODONE-ACETAMINOPHEN 5-325 MG ORAL TABLET 1 tab by mouth every 6 hours as needed for pain HYDROCODONE-ACETAMINOPHEN 5-325 MG ORAL TABLET 828619 HYDROCODONE-ACETAMINOPHEN Inactive CIPRO 500 MG ORAL TABLET 1 bid x 14 days start 814 CIPRO 500 MG ORAL TABLET 829194 CIPROFLOXACIN HCL Inactive ALIGN 4 MG ORAL [...] SODIUM 50 MG ORAL TABLET DELAYED RELEASE 585751 DICLOFENAC SODIUM Inactive PREDNISONE 20 MG ORAL TABLET 2 tablets once daily for 2 days, then 1 tablet once daily for 2 days PREDNISONE 20 MG ORAL TABLET 505092 PREDNISONE Inactive TRUEDRAW LANCING DEVICE Test twice a day dx 250.0 TRUEDRAW LANCING DEVICE LANCET DEVICES Inactive TRUERESULT BLOOD GLUCOSE w/Device KIT test blood sugar twice daily dx 250.00 TRUERESULT BLOOD GLUCOSE w/Device KIT BLOOD GLUCOSE MONITORING SUPPL Inactive FLONASE 50 MCG/ACT NASAL SUSPENSION 1 spray each nostril twice daily until bottle empty FLONASE 50 MCG/ACT NASAL SUSPENSION 7609851 FLUTICASONE PROPIONATE Inactive VENTOLIN HFA 108 (90 Base) MCG/ACT INHALATION AEROSOL SOLUTION 1-2 puffs every 4 hours if needed for cough/congestion VENTOLIN HFA 108 (90 Base) MCG/ACT INHALATION AEROSOL SOLUTION ALBUTEROL SULFATE Inactive REQUIP 2 MG ORAL TABLET Take one tablet at bedtime prn REQUIP 2 MG ORAL TABLET 001119 ROPINIROLE HCL Inactive SUPER B COMPLEX/VITAMIN C ORAL TABLET 1 qd SUPER B COMPLEX/VITAMIN C ORAL TABLET 54342784135 B COMPLEX-C Inactive TRUEDRAW LANCING DEVICE test blood sugar twice daily dx: 250.00 TRUEDRAW LANCING DEVICE LANCET DEVICES Inactive TRUETEST TEST IN VITRO STRIP test blood sugar twice daily. DX 250.0 TRUETEST TEST IN VITRO STRIP GLUCOSE BLOOD Inactive CYCLOBENZAPRINE HCL 10 MG ORAL TABLET 1 po TID PRN Muscle Spasm CYCLOBENZAPRINE HCL 10 MG ORAL TABLET 869983 CYCLOBENZAPRINE HCL Inactive DICLOFENAC SODIUM 50 MG ORAL TABLET DELAYED RELEASE 1 po BID PRN Pain DICLOFENAC SODIUM 50 MG ORAL TABLET DELAYED RELEASE 095441 DICLOFENAC SODIUM Inactive DICLOFENAC SODIUM 75 MG ORAL TABLET DELAYED RELEASE 1 po BID PRN Pain DICLOFENAC SODIUM 75 MG ORAL TABLET DELAYED RELEASE 933716 DICLOFENAC SODIUM Inactive NASONEX 50 MCG/ACT NASAL SUSPENSION 2 actuations in each nostril q day 07/15 NASONEX 50 MCG/ACT NASAL SUSPENSION 9684156 MOMETASONE FUROATE Inactive GUAIFENESIN ER 600 MG ORAL TABLET EXTENDED RELEASE 12 HOUR 1 twice a day as needed for congestion GUAIFENESIN ER 600 MG ORAL TABLET EXTENDED RELEASE 12 HOUR GUAIFENESIN Inactive AZITHROMYCIN 250 MG ORAL TABLET 2 po qd x 1, then 1 po qd x 4 AZITHROMYCIN 250 MG ORAL TABLET 639030 AZITHROMYCIN Inactive PROMETHAZINE-CODEINE 6.25-10 MG/5ML ORAL SYRUP 5ml po q6hr PRN Cough PROMETHAZINE-CODEINE 6.25-10 MG/5ML ORAL SYRUP 292808 PROMETHAZINE-CODEINE Inactive TRILIPIX 135 MG ORAL CAPSULE DELAYED RELEASE 1 q hs TRILIPIX 135 MG ORAL CAPSULE DELAYED RELEASE 014313 CHOLINE FENOFIBRATE Inactive TRIAMCINOLONE ACETONIDE 0.1 % EXTERNAL OINTMENT Apply to affected areas TID for up to 2 weeks TRIAMCINOLONE ACETONIDE 0.1 % EXTERNAL OINTMENT 9774453 TRIAMCINOLONE ACETONIDE Inactive PREDNISONE 20 MG ORAL TABLET 2 tabs daily for 3 days, 1 tab daily for 3 days, 1/2 tab daily for 2 days PREDNISONE 20 MG ORAL TABLET 982513 PREDNISONE Inactive PREDNISONE 20 MG ORAL TABLET 2 tabs daily for 3 days, 1 tab daily for 3 days, 1/2 tab daily for 2 days PREDNISONE 20 MG ORAL TABLET 549774 PREDNISONE Inactive BACTRIM DS 800-160 MG ORAL TABLET 1 po BID x 7 days BACTRIM DS 800-160 MG ORAL TABLET 715453 SULFAMETHOXAZOLE-TRIMETHOPRIM Inactive ZITHROMAX 250 MG ORAL TABLET 2 po today, then 1 po q days 2-5 ZITHROMAX 250 MG ORAL TABLET 998791 AZITHROMYCIN Inactive PREDNISONE 20 MG ORAL TABLET 2 po qd x 5 days PREDNISONE 20 MG ORAL TABLET 841279 PREDNISONE Inactive Advance Directives Directive Description Start Date DISCUSSED WITH PATIENT -- NO DECISION MADE Immunizations Vaccine Administration Date Value Standard Description Seasonal influenza vaccine, injectable, containing preservative, for > 3 years old (Afluria, FluLaval, Fluzone, Fluvirin, Fluarix, Agriflu(>=18 yo)) Fluzone (>3 yrs.) [[id number]] Influenza, seasonal, injectable influenza immunization (Flu Vax) has been administered 02/22/2012 influenza virus vaccine, unspecified formulation Seasonal influenza vaccine, injectable, containing preservative, for > 3 years old (Afluria, FluLaval, Fluzone, Fluvirin, Fluarix, Agriflu(>=18 yo)) Fluzone (>3 yrs.) [[id number]] Influenza, seasonal, injectable Vital Signs Date Name [...] ... - Chemistry sodium, serum 141 mmol/L 353-684 8091/01/16 carbon dioxide, venous blood 28.3 mmol/L 21.0-32.0 [...] 6.7 % 4.3-6.0 cholesterol, serum 106 mg/dL 788-506 0889/01/16 triglyceride, serum, fasting 173 mg/dL 30-200 HDL [...] Magnesium - Chemistry sodium, serum 142 mmol/L 929-789 6052/07/16 carbon dioxide, venous blood 29.4 mmol/L 21.0-32.0 [...] Panel - Chemistry cholesterol, serum 170 mg/dL 909-207 7311/07/16 triglyceride, serum, fasting 266 mg/dL 30-200 HDL cholesterol, serum 42 mg/dL 32-60 LDL cholesterol, serum 75 mg/dL 0-130 Encounters Code Encounter Date Provider Facility CPT-88182 Level 4 Est. Patient 14:46:36 CDT Tu Landeros MD [facility] CPT-06545 Level 3 Est. Patient 10:28:05 CDT Tu Landeros MD [facility] CPT-05104 Level 3 Est. Patient 09:11:32 CDT Tu Landeros MD [facility] CPT-78555 Level 3 Est. Patient 10:13:19 BUSINESS QUALITY ASSURANCE ANALYST Lesli Kellogg APRN [facility] CPT-42169 Level 4 Est. Patient 13:42:02 BUSINESS QUALITY ASSURANCE ANALYST Tu Landeros MD [facility] CPT-43453 Level 3 Est. Patient 14:20:36 CDT Tu Landeros MD [facility] CPT-26653 Level 4 Est. Patient 14:28:34 CDT Tu Landeros MD [facility] CPT-95802 Level 3 Est. Patient 13:33:09 CDT Tu Landeros MD [facility] CPT-77886 Level 4 Est. Patient 14:29:21 CDT Tu Landeros MD [facility] CPT-02940 Level 4 Est. Patient 09:08:17 BUSINESS QUALITY ASSURANCE ANALYST Tu Landeros MD [facility] CPT-74549 Level 4 Est. Patient 14:40:19 CDT Tu Landeros MD [facility] CPT-99275 Level 4 Est. Patient 14:06:04 BUSINESS QUALITY ASSURANCE ANALYST Tu Landeros MD [facility] CPT-96708 Level 3 Est. Patient 14:05:18 BUSINESS QUALITY ASSURANCE ANALYST Tu Landeros MD [facility] CPT-36829 Level 3 Est. Patient 10:06:54 BUSINESS QUALITY ASSURANCE ANALYST Miranda Farah APRN [facility] CPT-13632 Level 4 Est. Patient 13:50:18 BUSINESS QUALITY ASSURANCE ANALYST Tu Landeros MD [facility] CPT-49252 Level 3 Est. Patient 10:30:04 CDT Tu Landeros MD [facility] CPT-16079 Level 4 Est. Patient 11:03:38 CDT Tu Landeros MD [facility] CPT-02049 Level 3 Est. Patient 10:20:44 CDT Fab Morales DO [facility] CPT-67354 Level 4 Est. Patient 14:38:57 CDT Tu Landeros MD [facility] CPT-65988 Level 4 Est. Patient 14:27:39 BUSINESS QUALITY ASSURANCE ANALYST Tu Landeros MD [facility] CPT-06073 Level 4 Est. Patient 09:45:25 CDT Tu Landeros MD [facility] CPT-23112 Level 4 Est. Patient 09:05:20 BUSINESS QUALITY ASSURANCE ANALYST Tu Landeros MD [facility] CPT-45167 Level 4 Est. Patient 14:09:06 CDT Tu Landeros MD [facility] CPT-06984 Level 3 Est. Patient 13:36:54 CDT Tu Landeros MD [facility] CPT-33331 Level 3 Est. Patient 08:59:14 CDT [facility] [facility] CPT-78911 Level 3 Est. Patient 13:48:35 CDT Fab Morales DO [facility] CPT-08803 Level 4 Est. Patient 10:05:48 CDT Tu Landeros MD [facility] CPT-58458 Level 3 Est. Patient 13:38:42 CDT Marek BANKS [facility] CPT-84378 Level 5 Est. Patient 08:08:39 CDT Jerrica FRANCIS [facility] CPT-16580 Level 4 Est. Patient 14:23:38 CDT Tu Landeros MD [facility] CPT-01246 Level 3 Est. Patient 11:44:04 CDT Tu Landeros MD [facility] CPT-33572 Level 3 Est. Patient 11:03:20 BUSINESS QUALITY ASSURANCE ANALYST Tu Landeros MD [facility] CPT-70892 Level 3 Est. Patient 11:03:14 BUSINESS QUALITY ASSURANCE ANALYST Tu Landeros MD [facility] CPT-87115 Level 3 Est. Patient 12:42:49 CDT Tu Landeros MD [facility] CPT-71402 Level 3 Est. Patient 11:52:06 CDT Tu Landeros MD [facility] CPT-93581 Level 3 Est. Patient 13:58:11 CDT Tu Landeros MD [facility] CPT-83248 Level 3 Est. Patient 17:50:07 CDT Fab Morales DO [facility] CPT-76983 Level 3 Est. Patient 12:06:29 CDT Elvira Cervantes MD PhD [facility] CPT-76688 Level 3 Est. Patient 15:50:32 CDT Tu Landeros MD [facility] CPT-56174 Level 4 Est. Patient 16:08:29 CDT Tu Landeros MD [facility] CPT-43793 Level 3 Est. Patient 16:04:19 CDT Tu Landeros MD [facility] CPT-58649 Level 3 Est. Patient 11:22:30 BUSINESS QUALITY ASSURANCE ANALYST Tu Landeros MD [facility] CPT-98777 Level 4 Est. Patient 16:24:02 BUSINESS QUALITY ASSURANCE ANALYST Tu Landeros MD [facility] CPT-30645 Level 3 Est. Patient 17:21:23 BUSINESS QUALITY ASSURANCE ANALYST Tu Landeros MD [facility] Procedures Code Procedure Name Date Entry Date Standard Description CPT-G0439 Subsequent Annual Wellness Exam 14:46:36 CDT CPT-48107 Shoulder, right, comp min 2V - XRAY USE ONLY 13:50:22 CDT CPT-G0009 Administration of Pneumococcal Vaccine 15:08:26 CDT CPT-20043 Prevnar 13 Intramuscular Suspension 15:08:26 CDT 10/08 CPT-G0439 Subsequent Annual Wellness Exam 14:29:22 CDT CPT-82370 Venipuncture Draw Fee 13:15:35 CDT CPT-91010 Magnesium - LAB USE ONLY 11:14:20 BUSINESS QUALITY ASSURANCE ANALYST CPT-93760 Lipid - LAB USE ONLY 11:14:20 BUSINESS QUALITY ASSURANCE ANALYST CPT-79989 HGBA1C - LAB USE ONLY 11:14:20 BUSINESS QUALITY ASSURANCE ANALYST CPT-82201 CMP - LAB USE ONLY 11:14:19 BUSINESS QUALITY ASSURANCE ANALYST CPT-85955 CBC - LAB USE ONLY 11:14:19 BUSINESS QUALITY ASSURANCE ANALYST CPT-03888 Venipuncture Draw Fee 11:14:18 BUSINESS QUALITY ASSURANCE ANALYST CPT-44717 First Vx - Ix admin for Medicare patients 16:46:52 CDT CPT-66691 Fluzone Preservative Free Intramuscular Suspension 16:46 :51 CDT CPT-55366 CBC - LAB USE ONLY 17:14:46 CDT CPT-35590 HGBA1C - LAB USE ONLY 17:14:46 CDT CPT-53244 Venipuncture Draw Fee 17:14:46 CDT CPT-G0438 Initial Annual Wellness Exam 14:13:04 CDT CPT-46290 Breathing Tx 10:06:54 BUSINESS QUALITY ASSURANCE ANALYST CPT-93826 Postop F/U Visit 10:02:45 CDT CPT-LR Lesion Removal 09:02:56 CDT CPT-JTINJ Asp/Joint Injection 15:51:27 BUSINESS QUALITY ASSURANCE ANALYST CPT-OV Office Visit 15:52:02 BUSINESS QUALITY ASSURANCE ANALYST CPT-OV Office Visit 15:45:11 CDT CPT-000 Give Zostavax 14:09:06 CDT CPT-24779 Administration single or combination vaccine inc oral 15 :19:04 CDT CPT-74495 Zoster Vaccine (Zostavax) 15:19:04 CDT CPT-41597 Administration single or combination vaccine inc oral 20 :51:03 CDT CPT-39730 Influenza split virus > age 3 20:51:03 CDT CPT-85223 No Charge Offi Visit 14:52:03 CDT CPT-OV Office Visit 14:57:43 CDT CPT-OV Office Visit 15:22:32 CDT CPT-45584 Administration single or combination vaccine inc oral 11 :33:15 CDT CPT-37671 Influenza split virus > age 3 11:33:15 CDT
--- OUTSIDE RECORDS SUMMARY | 2018-04-25 11:58 | XMS REPORT | Clinical Summary ---
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 Acute upper respiratory infections of unspecified site Upper respiratory infection, viral 465.9 Resolved Tu Landeros MD Acute upper respiratory infections of unspecified site Body Mass Index 50.0-59.9 Adult Active Tu Landeros MD Body Mass Index 50.0-59.9, adult Wrist pain, left 719.43 Active Tu Landeros MD Pain in joint involving forearm HEALTH SCREENING ICD-V70.0 Inactive Elvira Cervantes MD PhD 2011 INSOMNIA, PERSISTENT ICD-307.42 Inactive Tu Landeros MD GASTROENTERITIS ICD-558.9 Inactive Tu Landeros MD DIZZINESS ICD-780.4 Inactive Tu Landeros MD POSTMENOPAUSAL BLEEDING ICD-627.1 Inactive Elvira Cervantes MD PhD FREQUENCY, URINARY ICD-788.41 Inactive Elvira Cervantes MD PhD FEVER UNSPECIFIED ICD-780.60 Inactive Tu Landeros MD MUSCLE SPASM ICD-728.85 Inactive Tu Landeros MD SCIATICA ICD-724.3 Inactive Tu Landeros MD 2012 BENIGN PAROXYSMAL POSITIONAL VERTIGO ICD-386.11 Inactive Tu Landeros MD PARESTHESIA ICD-782.0 Inactive Tu Landeros MD RASH AND OTHER NONSPECIFIC SKIN ERUPTION ICD-782.1 Inactive Tu Landeros MD FATIGUE ICD-780.79 Inactive Tu Landeros MD 2012 LEG CRAMPS, NOCTURNAL ICD-729.82 eTssa Landeros MD ARTHRITIS ICD-716.90 Inactive Tu Landeros MD KNEE PAIN ICD-719.46 Inactive Tu Landeros MD SHOULDER PAIN, LEFT ICD-719.41 Tessa Landeros MD CARPAL TUNNEL SYNDROME ICD-354.0 Tessa Landeros MD LOCALIZED SUPERFICIAL SWELLING MASS OR LUMP ICD-782.2 Tessa Landeros MD CONTUSION OF UNSPECIFIED SITE ICD-924.9 Tessa Landeros MD PRESSURE ULCER UNSPECIFIED SITE ICD-707.00 Tessa Landeros MD Open wound of abdominal wall, anterior, complicated ICD-879.3 Tessa Landeros MD Upper respiratory infection, viral ICD-465.9 Tessa Sy MD Open wound of other and unspecified parts of trunk, complicated ICD-879.7 Tessa Landeros MD Knee pain, left, acute ICD-719.46 Tessa Landeros MD Ear pain, bilateral ICD-388.70 Tessa Landeros MD Hot flashes ICD-627.2 Tessa Landeros MD Sebaceous cyst ICD-706.2 Inactive Tu Landeros MD Upper respiratory infection, viral ICD-465.9 Inactive Tu Landeros MD Sinusitis - acute ICD-461.9 Inactive Tu Landeros MD Leg pain, left ICD-729.5 Inactive Tu Landeros MD ONYCHOMYCOSIS ICD-110.1 Inactive Tu Landeros MD Pain in unspecified foot ICD-729.5 Inactive Tu Landeros MD Shoulder pain, right ICD-719.41 Inactive Tu Landeros MD Great toe pain ICD-729.5 Inactive Tu Landeros MD Osteoarthritis ICD-715.90 Inactive Tu Landeros MD Upper respiratory infection, viral ICD-465.9 Inactive Tu Landeros MD Vision impairment, both eyes, impairment level not further specified ICD- 369.20 Inactive Tu Landeros MD Medication List Medication Instructions Start Date Stop Date Generic Name NDC Status Provider Patient Instruction LOVAZA 1 GM ORAL CAPSULE 1 po qd [id number] ETHYL ESTERS [id number] Active Tu Landeros MD Active TRILIPIX 135 MG ORAL CAPSULE DELAYED RELEASE 1 q hs CHOLINE FENOFIBRATE 52843415718 No Longer Active Cynthia Valdivia RMA Active TRIAMCINOLONE ACETONIDE 0.1 % EXTERNAL CREAM Apply to affected area TID for up to 2 weeks TRIAMCINOLONE ACETONIDE 08963266780 Active Tu Landeros MD Active INDOMETHACIN 50 MG ORAL CAPSULE 1 po TID PRN Pain INDOMETHACIN 62676343340 Active Tu Landeros MD Active PROMETHAZINE-CODEINE 6.25-10 MG/5ML ORAL SYRUP 5ml po q6hr PRN Cough PROMETHAZINE-CODEINE 98706279623 No Longer Active Tu Landeros MD Active AZITHROMYCIN 250 MG ORAL TABLET 2 po qd x 1, then 1 po qd x 4 AZITHROMYCIN 84170904507 No Longer Active Tu Landeros MD Active GUAIFENESIN ER 600 MG ORAL TABLET EXTENDED RELEASE 12 HOUR 1 twice a day as needed for congestion GUAIFENESIN 10742489713 No Longer Active Tu Landeros MD Active PREDNISONE 20 MG ORAL TABLET 2 po qd x 5 days PREDNISONE 57482961542 No Longer Active Tu Landeros MD Active FLUTICASONE PROPIONATE 50 MCG/ACT NASAL SUSPENSION 2 sprays/nostril qd PRN Congestion/Allergies FLUTICASONE PROPIONATE 39582463843 Active Tu Landeros MD Active NASONEX 50 MCG/ACT NASAL SUSPENSION 2 actuations in each nostril q day 07/15 MOMETASONE FUROATE 87921028057 No Longer Active Tu Landeros MD Active MAGNESIUM OXIDE 400 MG ORAL TABLET 1 po BID MAGNESIUM OXIDE 83058221107 Active Tu Landeros MD Active SIMVASTATIN 20 MG ORAL TABLET 0.5 po qHS SIMVASTATIN 28985589310 Active Tu Landeros MD Active DICLOFENAC SODIUM 75 MG ORAL TABLET DELAYED RELEASE 1 po BID PRN Pain DICLOFENAC SODIUM 37434119710 No Longer Active Tu Landeros MD Active GABAPENTIN 100 MG ORAL CAPSULE 1 po TID GABAPENTIN 64572385117 Active Tu Landeros MD Active DICLOFENAC SODIUM 50 MG ORAL TABLET DELAYED RELEASE 1 po BID PRN Pain DICLOFENAC SODIUM 04591080578 No Longer Active Tu Landeros MD Active CYCLOBENZAPRINE HCL 10 MG ORAL TABLET 1 po TID PRN Muscle Spasm CYCLOBENZAPRINE HCL 51639482788 No Longer Active Tu Landeros MD Active INVOKANA 100 MG ORAL TABLET 1 po qd CANAGLIFLOZIN 65069312644 Active José Luis Becerra MD Active GLIPIZIDE 5 MG ORAL TABLET 1 po qd GLIPIZIDE 32674163093 No Longer Active Tu Landeros MD Active VENLAFAXINE HCL 75 MG ORAL TABLET 1 po BID VENLAFAXINE HCL 76617500256 Active Tu Landeros MD Active GLIMEPIRIDE 1 MG ORAL TABLET 1 po qd GLIMEPIRIDE 90083184127 No Longer Active Tu Landeros MD Active TRUE METRIX BLOOD GLUCOSE TEST IN VITRO STRIP Test blood sugar BID Dx: E11.9 GLUCOSE BLOOD 29433926129 Active Tu Landeros MD Active TRUE METRIX AIR GLUCOSE METER w/Device KIT Test blood glucose BID Dx: E11.9 BLOOD GLUCOSE MONITORING SUPPL 56390920467 Active Tu Landeros MD Active TRUETEST TEST IN VITRO STRIP test blood sugar twice daily. DX 250.0 GLUCOSE BLOOD 99740472354 No Longer Active Mirna Stanley LPN Active TRUEDRAW LANCING DEVICE test blood sugar twice daily dx: 250.00 LANCET DEVICES 66588573048 No Longer Active Mirna Stanley LPN Active ENALAPRIL MALEATE 20 MG ORAL TABLET 2 po qd ENALAPRIL MALEATE 72545489155 Active Tu Landeros MD Active SUPER B COMPLEX/VITAMIN C ORAL TABLET 1 qd B COMPLEX- C 01641073105 No Longer Active Tu Landeros MD Active ASPIRIN EC 81 MG ORAL TABLET DELAYED RELEASE 1 po qd ASPIRIN 63687605841 Active Tu Landeros MD Active GLUCOSAMINE 500 MG TABS 2 po qd GLUCOSAMINE Active Tu Landeros MD Active FISH OIL 1000 MG ORAL CAPSULE 1 po qd OMEGA-3 FATTY ACIDS 15041264996 Active Tu Landeros MD Active METFORMIN HCL 1000 MG ORAL TABLET 1 po BID METFORMIN HCL 59794816213 Active Tu Landeros MD Active KLOR-CON 10 10 MEQ ORAL TABLET EXTENDED RELEASE 2 po qd POTASSIUM CHLORIDE 77081584242 Active Tu Landeros MD Active FUROSEMIDE 40 MG ORAL TABLET 1 po qd FUROSEMIDE 50114311931 Active Tu Landeros MD Active REQUIP 2 MG ORAL TABLET 1 po qHS PRN Restless legs ROPINIROLE HCL 85575093342 Active Tu Landeros MD Active REQUIP 2 MG ORAL TABLET Take one tablet at bedtime prn ROPINIROLE HCL 73153648929 No Longer Active Tu Landeros MD Active VENTOLIN HFA 108 (90 Base) MCG/ACT INHALATION AEROSOL SOLUTION 1-2 puffs every 4 hours if needed for cough/congestion ALBUTEROL SULFATE 17857319684 No Longer Active Ambika Aden APRN Active ZITHROMAX 250 MG ORAL TABLET 2 po today, then 1 po q days 2-5 AZITHROMYCIN 92150940134 No Longer Active Miranda Farah APRN Active FLONASE 50 MCG/ACT NASAL SUSPENSION 1 spray each nostril twice daily until bottle empty FLUTICASONE PROPIONATE 37753331323 No Longer Active Tu Landeros MD Active COLACE 100 MG ORAL CAPSULE 1 po BID PRN Constipation DOCUSATE SODIUM 65124726285 Active Tu Landeros MD Active TRUERESULT BLOOD GLUCOSE w/Device KIT test blood sugar twice daily dx 250.00 BLOOD GLUCOSE MONITORING SUPPL 55843164782 No Longer Active Tu Landeros MD Active TRUEDRAW LANCING DEVICE Test twice a day dx 250.0 LANCET DEVICES 10310687656 No Longer Active Tu Landeros MD Active PREDNISONE 20 MG ORAL TABLET 2 tablets once daily for 2 days, then 1 tablet once daily for 2 days PREDNISONE 33768014123 No Longer Active Tu Landeros MD Active DICLOFENAC SODIUM 50 MG ORAL TABLET DELAYED RELEASE 1 tablet by mouth three times a day as needed DICLOFENAC SODIUM 96830018611 No Longer Active Fab Morales DO Active EMBRACE BLOOD GLUCOSE TEST IN VITRO STRIP test blood sugar twice daily DX 250.0 GLUCOSE BLOOD 49701689522 No Longer Active Tu Landeros MD Active TRUETEST TEST IN VITRO STRIP test blood sugar three times daily dx: 250.00 GLUCOSE BLOOD 01918210272 No Longer Active Suze VOGEL Active TRUERESULT BLOOD GLUCOSE w/Device KIT use to test blood sugar tid dx: 250.00 BLOOD GLUCOSE MONITORING SUPPL 37713983499 No Longer Active Suzebianca VOGEL Active ALIGN 4 MG ORAL CAPSULE 1 tid PROBIOTIC PRODUCT 10277199121 No Longer Active Shaun Sy MD Active CIPRO 500 MG ORAL TABLET 1 bid x 14 days start 09-28-13 CIPROFLOXACIN HCL 27089898962 No Longer Active Shaun Sy MD Active TRAMADOL HCL 50 MG ORAL TABLET 1-2 tablets every 6 hours as needed for pain TRAMADOL HCL 16436486333 Active Tu Landeros MD Active HYDROCODONE-ACETAMINOPHEN 5-325 MG ORAL TABLET 1 tab by mouth every 6 hours as needed for pain HYDROCODONE-ACETAMINOPHEN 41775350961 No Longer Active Tu Landeros MD Active OMEPRAZOLE 20 MG ORAL CAPSULE DELAYED RELEASE 1 po q a.m. OMEPRAZOLE 56121129053 Active Tu Landeros MD Active GABAPENTIN 100 MG ORAL CAPSULE 1 po bid GABAPENTIN 21455479333 No Longer Active Tu Landeros MD Active B-12 100 MCG ORAL TABLET Take one by mouth daily CYANOCOBALAMIN 14924310464 No Longer Active Tu Landeros MD Active BACTRIM DS 800-160 MG ORAL TABLET 1 bid x 14 day start 09-28-13 SULFAMETHOXAZOLE-TRIMETHOPRIM 59794217183 No Longer Active Tu Landeros MD Active CARVEDILOL 12.5 MG ORAL TABLET 1 po BID CARVEDILOL 28682097898 Active Tu Landeros MD Active FENOFIBRATE 145 MG ORAL TABLET 1 po qd FENOFIBRATE 90668726597 No Longer Active JASPREET Perez Active OMEPRAZOLE 20 MG ORAL TABLET DELAYED RELEASE 1 PO 30 MIN BEFORE 1ST MEAL 2010 OMEPRAZOLE 76261496578 No Longer Active JASPREET Perez Active SIMVASTATIN 40 MG ORAL TABLET Take one by mouth daily SIMVASTATIN 24904449224 No Longer Active JASPREET Perez Active VENLAFAXINE HCL 75 MG ORAL TABLET 1 po BID VENLAFAXINE HCL 74479582872 No Longer Active JASPREET Perez Active CIPRO 500 MG ORAL TABLET 1 tablet by mouth twice daily CIPROFLOXACIN HCL 04747139463 No Longer Active Tu Landeros MD Active VENLAFAXINE HCL 37.5 MG ORAL TABLET 1 po BID VENLAFAXINE HCL 54278506039 No Longer Active Suze NUNOA Active LAMISIL 250 MG ORAL TABLET 1 po qd TERBINAFINE HCL 54719786463 No Longer Active Tu Landeros MD Active LORTAB 5-500 MG ORAL TABLET 1/2 to 1 tablet by mouth every 4 hours as needed for pain HYDROCODONE-ACETAMINOPHEN 64994970284 No Longer Active Tu Landeros MD Active HYDROCODONE-ACETAMINOPHEN 5-500 MG ORAL TABLET take one po Q 4-6 hours prn HYDROCODONE-ACETAMINOPHEN 86999199757 No Longer Active Tu Landeros MD Active BACTRIM DS 800-160 MG ORAL TABLET 1 po BID x 7 days SULFAMETHOXAZOLE-TRIMETHOPRIM 10559698923 No Longer Active Tu Landeros MD Active VENLAFAXINE HCL 75 MG ORAL TABLET 1 po BID VENLAFAXINE HCL 25621958751 No Longer Active Elvira Cervantes MD PhD Active TRAMADOL HCL 50 MG ORAL TABLET 1 tablets every 6 hours as needed for pain TRAMADOL HCL 21002203936 No Longer Active Tu Landeros MD Active ACCU-[place]ED[place] FASTCLIX LANCETS Use to check bloodsugar three times daily as needed LANCETS 75605100338 No Longer Active Tu Landeros MD Active ACCU-CHED[place]son KEYONA PLUS IN VITRO STRIP Use for testing bloodsugars three times daily as needed GLUCOSE BLOOD 78260312261 No Longer Active Tu Landeros MD Active ACCU-CHEK KEYONA PLUS w/Device KIT Use for testing bloodsugars three times daily as needed BLOOD GLUCOSE MONITORING SUPPL 10020939943 No Longer Active Tu Landeros MD Active SPIRONOLACTONE 25 MG ORAL TABLET 0.5 tablet by mouth daily 09/09 SPIRONOLACTONE 36790791711 No Longer Active Tu Landeros MD Active ALPRAZOLAM 0.5 MG ORAL TABLET 1 tab every 6hrs as needed ALPRAZOLAM 73588864826 No Longer Active Tu Landeros MD Active AUGMENTIN 875-125 MG ORAL TABLET 1 tab by mouth twice daily with food AMOXICILLIN-POT CLAVULANATE 10938720660 No Longer Active Tu Landeros MD Active PREDNISONE 20 MG ORAL TABLET 2 tabs daily for 3 days, 1 tab daily for 3 days, 1/2 tab daily for 2 days PREDNISONE 06685904053 No Longer Active Tu Landeros MD Active XANAX 0.5 MG ORAL TABLET 1 tablet every 6 hrs prn ALPRAZOLAM 92375248172 No Longer Active Tu Landeros MD Active PREDNISONE 20 MG ORAL TABLET 2 tabs daily for 3 days, 1 tab daily for 3 days, 1/2 tab daily for 2 days PREDNISONE 67228631799 No Longer Active Tu Landeros MD Active TRIAMCINOLONE ACETONIDE 0.1 % EXTERNAL OINTMENT Apply to affected areas TID for up to 2 weeks TRIAMCINOLONE ACETONIDE 01928705168 No Longer Active Tu Landeros MD Active LORTAB 5-500 MG ORAL TABLET 1/2 to 1 tablet by mouth every 4 hours as needed for pain HYDROCODONE-ACETAMINOPHEN 16601712191 No Longer Active Tu Landeros MD Active MULTIVITAMINS TABS Take one by mouth daily MULTIPLE VITAMIN 37154304755 No Longer Active Tu Landeros MD Active MELATONIN 5 MG ORAL TABLET Take one by mouth daily MELATONIN 63086162783 No Longer Active Tu Landeros MD Active SOMA 350 MG ORAL TABLET 1 po q 6 hours prn spasm CARISOPRODOL 06951712078 No Longer Active Tu Landeros MD Active MECLIZINE HCL 25 MG ORAL TABLET CHEWABLE 1 four times a day as needed for dizziness MECLIZINE HCL 75475838740 No Longer Active Fab Morales DO Active ANGEL BREEZE 2 TEST IN VITRO DISK test tid prn GLUCOSE BLOOD 15630831010 No Longer Active Negra Scott RN Active REGLAN 10 MG ORAL TABLET 1 po TID PRN Nausea METOCLOPRAMIDE HCL 33918104842 No Longer Active Tu Landeros MD Active METFORMIN HCL 500 MG ORAL TABLET 1 PO BID METFORMIN HCL 10730486510 No Longer Active Tu Landeros MD Active AMBIEN 10 MG ORAL TABLET 1 tab by mouth at bedtime as needed for sleep 06/10 ZOLPIDEM TARTRATE 35009272306 No Longer Active Tu Landeros MD Active FLUOXETINE HCL 40 MG ORAL CAPSULE 1 po q day FLUOXETINE HCL 38502106148 No Longer Active Mayra [place] Active TRILIPIX 135 MG ORAL CAPSULE DELAYED RELEASE 1 po qd CHOLINE FENOFIBRATE 53051574986 No Longer Active Tu Landeros MD Active AMBIEN 10 MG ORAL TABLET 1 tab by mouth at bedtime as needed for sleep 06/10 AMBIEN 10 MG ORAL TABLET 743442 ZOLPIDEM TARTRATE Inactive METFORMIN HCL 500 MG ORAL TABLET 1 PO BID METFORMIN HCL 500 MG ORAL TABLET 403127 METFORMIN HCL Inactive REGLAN 10 MG ORAL TABLET 1 po TID PRN Nausea REGLAN 10 MG ORAL TABLET 455214 METOCLOPRAMIDE HCL Inactive MECLIZINE HCL 25 MG ORAL TABLET CHEWABLE 1 four times a day as needed for dizziness MECLIZINE HCL 25 MG ORAL TABLET CHEWABLE 685764 MECLIZINE HCL Inactive SOMA 350 MG ORAL TABLET 1 po q 6 hours prn spasm SOMA 350 MG ORAL TABLET 664783 CARISOPRODOL Inactive MELATONIN 5 MG ORAL TABLET Take one by mouth daily MELATONIN 5 MG ORAL TABLET 656829 MELATONIN Inactive MULTIVITAMINS TABS Take one by mouth daily MULTIVITAMINS TABS MULTIPLE VITAMIN Inactive LORTAB 5-500 MG ORAL TABLET 1/2 to 1 tablet by mouth every 4 hours as needed for pain LORTAB 5-500 MG ORAL TABLET HYDROCODONE- ACETAMINOPHEN Inactive XANAX 0.5 MG ORAL TABLET 1 tablet every 6 hrs prn XANAX 0.5 MG ORAL TABLET 657941 ALPRAZOLAM Inactive AUGMENTIN 875-125 MG ORAL TABLET 1 tab by mouth twice daily with food AUGMENTIN 875-125 MG ORAL TABLET 560240 AMOXICILLIN-POT CLAVULANATE Inactive ALPRAZOLAM 0.5 MG ORAL TABLET 1 tab every 6hrs as needed ALPRAZOLAM 0.5 MG ORAL TABLET 892117 ALPRAZOLAM Inactive SPIRONOLACTONE 25 MG ORAL TABLET 0.5 tablet by mouth daily 09/09 SPIRONOLACTONE 25 MG ORAL TABLET 628929 SPIRONOLACTONE Inactive ACCU-CHEK KEYONA PLUS w/Device KIT [...] times daily as needed ACCU-CHEK FASTCLIX LANCETS 59973855656 LANCETS Inactive TRAMADOL HCL 50 MG ORAL TABLET 1 tablets every 6 hours as needed for pain TRAMADOL HCL 50 MG ORAL TABLET 519116 TRAMADOL HCL Inactive VENLAFAXINE HCL 75 MG ORAL TABLET 1 po BID VENLAFAXINE HCL 75 MG ORAL TABLET 680961 VENLAFAXINE HCL Inactive HYDROCODONE-ACETAMINOPHEN 5-500 MG ORAL TABLET take one po Q 4-6 hours prn HYDROCODONE-ACETAMINOPHEN 5-500 MG ORAL TABLET HYDROCODONE-ACETAMINOPHEN Inactive LORTAB 5-500 MG ORAL TABLET 1/2 to 1 tablet by mouth every 4 hours as needed for pain LORTAB 5-500 MG ORAL TABLET HYDROCODONE- ACETAMINOPHEN Inactive LAMISIL 250 MG ORAL TABLET 1 po qd LAMISIL 250 MG ORAL TABLET 370939 TERBINAFINE HCL Inactive VENLAFAXINE HCL 37.5 MG ORAL TABLET 1 po BID VENLAFAXINE HCL 37.5 MG ORAL TABLET 576666 VENLAFAXINE HCL Inactive CIPRO 500 MG ORAL TABLET 1 tablet by mouth twice daily CIPRO 500 MG ORAL TABLET 636138 CIPROFLOXACIN HCL Inactive VENLAFAXINE HCL 75 MG ORAL TABLET 1 po BID VENLAFAXINE HCL 75 MG ORAL TABLET 830317 VENLAFAXINE HCL Inactive SIMVASTATIN 40 MG ORAL TABLET Take one by mouth daily SIMVASTATIN 40 MG ORAL TABLET 026871 SIMVASTATIN Inactive OMEPRAZOLE 20 MG ORAL TABLET DELAYED RELEASE 1 PO 30 MIN BEFORE 1ST MEAL 2010 OMEPRAZOLE 20 MG ORAL TABLET DELAYED RELEASE 003302 OMEPRAZOLE Inactive FENOFIBRATE 145 MG ORAL TABLET 1 po qd FENOFIBRATE 145 MG ORAL TABLET 602590 FENOFIBRATE Inactive BACTRIM DS 800-160 MG ORAL TABLET 1 bid x 14 day start 09-28-13 BACTRIM DS 800-160 MG ORAL TABLET 072104 SULFAMETHOXAZOLE- TRIMETHOPRIM Inactive B-12 100 MCG ORAL TABLET Take one by mouth daily B-12 100 MCG ORAL TABLET CYANOCOBALAMIN Inactive GABAPENTIN 100 MG ORAL CAPSULE 1 po bid GABAPENTIN 100 MG ORAL CAPSULE 409971 GABAPENTIN Inactive HYDROCODONE-ACETAMINOPHEN 5-325 MG ORAL TABLET 1 tab by mouth every 6 hours as needed for pain HYDROCODONE-ACETAMINOPHEN 5-325 MG ORAL TABLET 271445 HYDROCODONE-ACETAMINOPHEN Inactive CIPRO 500 MG ORAL TABLET 1 bid x 14 days start 814 CIPRO 500 MG ORAL TABLET 274940 CIPROFLOXACIN HCL Inactive ALIGN 4 MG ORAL [...] SODIUM 50 MG ORAL TABLET DELAYED RELEASE 417231 DICLOFENAC SODIUM Inactive PREDNISONE 20 MG ORAL TABLET 2 tablets once daily for 2 days, then 1 tablet once daily for 2 days PREDNISONE 20 MG ORAL TABLET 651978 PREDNISONE Inactive TRUEDRAW LANCING DEVICE Test twice a day dx 250.0 TRUEDRAW LANCING DEVICE LANCET DEVICES Inactive TRUERESULT BLOOD GLUCOSE w/Device KIT test blood sugar twice daily dx 250.00 TRUERESULT BLOOD GLUCOSE w/Device KIT BLOOD GLUCOSE MONITORING SUPPL Inactive FLONASE 50 MCG/ACT NASAL SUSPENSION 1 spray each nostril twice daily until bottle empty FLONASE 50 MCG/ACT NASAL SUSPENSION 0323138 FLUTICASONE PROPIONATE Inactive VENTOLIN HFA 108 (90 Base) MCG/ACT INHALATION AEROSOL SOLUTION 1-2 puffs every 4 hours if needed for cough/congestion VENTOLIN HFA 108 (90 Base) MCG/ACT INHALATION AEROSOL SOLUTION ALBUTEROL SULFATE Inactive REQUIP 2 MG ORAL TABLET Take one tablet at bedtime prn REQUIP 2 MG ORAL TABLET 222450 ROPINIROLE HCL Inactive SUPER B COMPLEX/VITAMIN C ORAL TABLET 1 qd SUPER B COMPLEX/VITAMIN C ORAL TABLET 58333102754 B COMPLEX-C Inactive TRUEDRAW LANCING DEVICE test blood sugar twice daily dx: 250.00 TRUEDRAW LANCING DEVICE LANCET DEVICES Inactive TRUETEST TEST IN VITRO STRIP test blood sugar twice daily. DX 250.0 TRUETEST TEST IN VITRO STRIP GLUCOSE BLOOD Inactive CYCLOBENZAPRINE HCL 10 MG ORAL TABLET 1 po TID PRN Muscle Spasm CYCLOBENZAPRINE HCL 10 MG ORAL TABLET 759688 CYCLOBENZAPRINE HCL Inactive DICLOFENAC SODIUM 50 MG ORAL TABLET DELAYED RELEASE 1 po BID PRN Pain DICLOFENAC SODIUM 50 MG ORAL TABLET DELAYED RELEASE 996529 DICLOFENAC SODIUM Inactive DICLOFENAC SODIUM 75 MG ORAL TABLET DELAYED RELEASE 1 po BID PRN Pain DICLOFENAC SODIUM 75 MG ORAL TABLET DELAYED RELEASE 705585 DICLOFENAC SODIUM Inactive NASONEX 50 MCG/ACT NASAL SUSPENSION 2 actuations in each nostril q day 07/15 NASONEX 50 MCG/ACT NASAL SUSPENSION 8366400 MOMETASONE FUROATE Inactive GUAIFENESIN ER 600 MG ORAL TABLET EXTENDED RELEASE 12 HOUR 1 twice a day as needed for congestion GUAIFENESIN ER 600 MG ORAL TABLET EXTENDED RELEASE 12 HOUR GUAIFENESIN Inactive AZITHROMYCIN 250 MG ORAL TABLET 2 po qd x 1, then 1 po qd x 4 AZITHROMYCIN 250 MG ORAL TABLET 778132 AZITHROMYCIN Inactive PROMETHAZINE-CODEINE 6.25-10 MG/5ML ORAL SYRUP 5ml po q6hr PRN Cough PROMETHAZINE-CODEINE 6.25-10 MG/5ML ORAL SYRUP 806915 PROMETHAZINE-CODEINE Inactive TRILIPIX 135 MG ORAL CAPSULE DELAYED RELEASE 1 q hs TRILIPIX 135 MG ORAL CAPSULE DELAYED RELEASE 838127 CHOLINE FENOFIBRATE Inactive TRIAMCINOLONE ACETONIDE 0.1 % EXTERNAL OINTMENT Apply to affected areas TID for up to 2 weeks TRIAMCINOLONE ACETONIDE 0.1 % EXTERNAL OINTMENT 6411750 TRIAMCINOLONE ACETONIDE Inactive PREDNISONE 20 MG ORAL TABLET 2 tabs daily for 3 days, 1 tab daily for 3 days, 1/2 tab daily for 2 days PREDNISONE 20 MG ORAL TABLET 105496 PREDNISONE Inactive PREDNISONE 20 MG ORAL TABLET 2 tabs daily for 3 days, 1 tab daily for 3 days, 1/2 tab daily for 2 days PREDNISONE 20 MG ORAL TABLET 823985 PREDNISONE Inactive BACTRIM DS 800-160 MG ORAL TABLET 1 po BID x 7 days BACTRIM DS 800-160 MG ORAL TABLET 194121 SULFAMETHOXAZOLE-TRIMETHOPRIM Inactive ZITHROMAX 250 MG ORAL TABLET 2 po today, then 1 po q days 2-5 ZITHROMAX 250 MG ORAL TABLET 871557 AZITHROMYCIN Inactive PREDNISONE 20 MG ORAL TABLET 2 po qd x 5 days PREDNISONE 20 MG ORAL TABLET 038348 PREDNISONE Inactive Advance Directives Directive Description Start Date DISCUSSED WITH PATIENT -- NO DECISION MADE Immunizations Vaccine Administration Date Value Standard Description Seasonal influenza vaccine, injectable, containing preservative, for > 3 years old (Afluria, FluLaval, Fluzone, Fluvirin, Fluarix, Agriflu(>=18 yo)) Fluzone (>3 yrs.) [[id number]] Influenza, seasonal, injectable influenza immunization (Flu Vax) has been administered 02/22/2012 influenza virus vaccine, unspecified formulation Seasonal influenza vaccine, injectable, containing preservative, for > 3 years old (Afluria, FluLaval, Fluzone, Fluvirin, Fluarix, Agriflu(>=18 yo)) Fluzone (>3 yrs.) [[id number]] Influenza, seasonal, injectable Vital Signs Date Name [...] ... - Chemistry sodium, serum 141 mmol/L 298-604 8785/01/16 carbon dioxide, venous blood 28.3 mmol/L 21.0-32.0 [...] 6.7 % 4.3-6.0 cholesterol, serum 106 mg/dL 780-656 0708/01/16 triglyceride, serum, fasting 173 mg/dL 30-200 HDL [...] Magnesium - Chemistry sodium, serum 142 mmol/L 670-482 6838/07/16 carbon dioxide, venous blood 29.4 mmol/L 21.0-32.0 [...] Panel - Chemistry cholesterol, serum 170 mg/dL [phone]/07/16 triglyceride, serum, fasting 266 mg/dL 30-200 HDL cholesterol, serum 42 mg/dL 32-60 LDL cholesterol, serum 75 mg/dL 0-130 Encounters Code Encounter Date Provider Facility CPT-15180 Level 4 Est. Patient 14:46:36 CDT Tu Landeros MD [facility] CPT-80827 Level 3 Est. Patient 10:28:05 CDT Tu Landeros MD [facility] CPT-04581 Level 3 Est. Patient 09:11:32 CDT Tu Landeros MD [facility] CPT-86332 Level 3 Est. 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 Patient 13:42:02 OIL PIPE INSPECTOR Tu Landeros MD [facility] CPT-68834 Level 3 Est. Patient 14:20:36 CDT Tu Landeros MD [facility] CPT-90280 Level 4 Est. Patient 14:28:34 CDT Tu Landeros MD [facility] CPT-08517 Level 3 Est. Patient 13:33:09 CDT Tu Landeros MD [facility] CPT-45573 Level 4 Est. Patient 14:29:21 CDT Tu Landeros MD [facility] CPT-29831 Level 4 Est. Patient 09:08:17 OIL PIPE INSPECTOR Tu Landeros MD [facility] CPT-38379 Level 4 Est. Patient 14:40:19 CDT Tu Landeros MD [facility] CPT-42966 Level 4 Est. Patient 14:06:04 OIL PIPE INSPECTOR Tu Landeros MD [facility] CPT-52905 Level 3 Est. Patient 14:05:18 OIL PIPE INSPECTOR Tu Landeros MD [facility] CPT-98753 Level 3 Est. Patient 10:06:54 OIL PIPE INSPECTOR Miranda Farah APRN [facility] CPT-33848 Level 4 Est. Patient 13:50:18 OIL PIPE INSPECTOR Tu Landeros MD [facility] CPT-79332 Level 3 Est. Patient 10:30:04 CDT Tu Landeros MD [facility] CPT-93798 Level 4 Est. Patient 11:03:38 CDT Tu Landeros MD [facility] [facility] CPT-97798 Level 3 Est. Patient 10:20:44 CDT Fab Morales DO [facility] CPT-43753 Level 4 Est. Patient 14:38:57 CDT Tu Landeros MD [facility] CPT-43451 Level 4 Est. 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 Patient 09:45:25 CDT Tu Landeros MD [facility] CPT-76112 Level 4 Est. 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 Patient 14:09:06 CDT Tu Landeros MD [facility] CPT-44347 Level 3 Est. Patient 13:36:54 CDT Tu Landeros MD [facility] CPT-73671 Level 3 Est. Patient 08:59:14 CDT Tu Landeros MD [facility] CPT-57353 Level 3 Est. Patient 13:48:35 CDT Fab Morales DO [facility] CPT-81610 Level 4 Est. Patient 10:05:48 CDT Tu Landeros MD [facility] CPT-51699 Level 3 Est. Patient 13:38:42 CDT Marek BANKS [facility] CPT-61387 Level 5 Est. Patient 08:08:39 CDT Jerrica FRANCIS [facility] CPT-30639 Level 4 Est. Patient 14:23:38 CDT Tu Landeros MD [facility] CPT-26165 Level 3 Est. Patient 11:44:04 CDT Tu Landeros MD [facility] CPT-12684 Level 3 Est. 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 Patient 11:03:14 OIL PIPE INSPECTOR Tu Landeros MD [facility] CPT-70616 Level 3 Est. Patient 12:42:49 CDT Tu Landeros MD [facility] CPT-94051 Level 3 Est. Patient 11:52:06 CDT Tu Landeros MD [facility] CPT-43621 Level 3 Est. Patient 13:58:11 CDT Tu Landeros MD [facility] CPT-97167 Level 3 Est. Patient 17:50:07 CDT Fab Morales DO [facility] CPT-45972 Level 3 Est. Patient 12:06:29 CDT Elvira Cervantes MD PhD [facility] CPT-64380 Level 3 Est. Patient 15:50:32 CDT Tu Landeros MD [facility] CPT-84977 Level 4 Est. Patient 16:08:29 CDT Tu Landeros MD [facility] CPT-82659 Level 3 Est. Patient 16:04:19 CDT Tu Landeros MD [facility] CPT-61259 Level 3 Est. Patient 11:22:30 OIL PIPE INSPECTOR Tu Landeros MD [facility] CPT-02342 Level 4 Est. Patient 16:24:02 OIL PIPE INSPECTOR Tu Landeros MD [facility] CPT-67285 Level 3 Est. Patient 17:21:23 OIL PIPE INSPECTOR Tu Landeros MD [facility] Procedures Code Procedure Name Date Entry Date Standard Description CPT-G0439 Subsequent Annual Wellness Exam 14:46:36 CDT CPT-88902 Shoulder, right, comp min 2V - XRAY USE ONLY 13:50:22 CDT CPT-G0009 Administration of Pneumococcal Vaccine 15:08:26 CDT CPT-77155 Prevnar 13 Intramuscular Suspension 15:08:26 CDT 10/08 CPT-G0439 Subsequent Annual Wellness Exam 14:29:22 CDT CPT-19599 Venipuncture Draw Fee 13:15:35 CDT CPT-25544 Magnesium - LAB USE ONLY 11:14:20 OIL PIPE INSPECTOR CPT-03564 Lipid - LAB USE ONLY 11:14:20 OIL PIPE INSPECTOR CPT-62960 HGBA1C - LAB USE ONLY 11:14:20 OIL PIPE INSPECTOR CPT-24400 CMP - LAB USE ONLY 11:14:19 OIL PIPE INSPECTOR CPT-53077 CBC - LAB USE ONLY 11:14:19 OIL PIPE INSPECTOR CPT-39545 Venipuncture Draw Fee 11:14:18 OIL PIPE INSPECTOR CPT-81483 First Vx - Ix admin for Medicare patients 16:46:52 CDT CPT-94656 Fluzone Preservative Free Intramuscular Suspension 16:46 :51 CDT CPT-51643 CBC - LAB USE ONLY 17:14:46 CDT CPT-91125 HGBA1C - LAB USE ONLY 17:14:46 CDT CPT-55009 Venipuncture Draw Fee 17:14:46 CDT CPT-G0438 Initial Annual Wellness Exam 14:13:04 CDT CPT-59380 Breathing Tx 10:06:54 OIL PIPE INSPECTOR CPT-47511 Postop F/U Visit 10:02:45 CDT CPT-LR Lesion Removal 09:02:56 CDT CPT-JTINJ Asp/Joint Injection 15:51:27 OIL PIPE INSPECTOR CPT-OV Office Visit 15:52:02 OIL PIPE INSPECTOR CPT-OV Office Visit 15:45:11 CDT CPT-000 Give Zostavax 14:09:06 CDT CPT-68375 Administration single or combination vaccine inc oral 15 :19:04 CDT CPT-48346 Zoster Vaccine (Zostavax) 15:19:04 CDT CPT-05731 Administration single or combination vaccine inc oral 20 :51:03 CDT CPT-16990 Influenza split virus > age 3 20:51:03 CDT CPT-15461 No Charge Offi Visit 14:52:03 CDT CPT-OV Office Visit 14:57:43 CDT CPT-OV Office Visit 15:22:32 CDT CPT-17558 Administration single or combination vaccine inc oral 11 :33:15 CDT CPT-41803 Influenza split virus > age 3 11:33:15 CDT
[2018-04-25] MEDS ORDERED: NS IV 1000 ML 1,000 ML IV SCH ×2 (12:00→14:42)
--- OUTSIDE RECORDS SUMMARY | 2018-04-25 12:00 | XMS REPORT | Clinical Summary ---
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 Acute upper respiratory infections of unspecified site [...] specified ICD- 369.20 Inactive Tu Landeros MD Shoulder pain, right ICD-719.41 Inactive Tu Landeros MD Great toe pain ICD-729.5 Inactive Tu Landeros MD Pain in unspecified foot ICD-729.5 Inactive Tu Landeros MD Upper respiratory infection, viral ICD-465.9 Inactive Tu Landeros MD Medication List Medication Instructions Start Date Stop Date Generic Name NDC Status Provider Patient Instruction LOVAZA 1 GM ORAL CAPSULE 1 po qd [id number] ETHYL ESTERS [id number] Active Tu Landeros MD Active TRILIPIX 135 MG ORAL CAPSULE DELAYED RELEASE 1 q hs CHOLINE FENOFIBRATE 59714715530 No Longer Active Cynthia NUNOA Active TRIAMCINOLONE ACETONIDE 0.1 % EXTERNAL CREAM Apply to affected area TID for up to 2 weeks TRIAMCINOLONE ACETONIDE 87254452261 Active Tu Landeros MD Active INDOMETHACIN 50 MG ORAL CAPSULE 1 po TID PRN Pain INDOMETHACIN 54350673712 Active Tu Landeros MD Active PROMETHAZINE-CODEINE 6.25-10 MG/5ML ORAL SYRUP 5ml po q6hr PRN Cough PROMETHAZINE-CODEINE 90629117200 No Longer Active Tu Landeros MD Active AZITHROMYCIN 250 MG ORAL TABLET 2 po qd x 1, then 1 po qd x 4 AZITHROMYCIN 11018653586 No Longer Active Tu Landeros MD Active GUAIFENESIN ER 600 MG ORAL TABLET EXTENDED RELEASE 12 HOUR 1 twice a day as needed for congestion GUAIFENESIN 85222876161 No Longer Active Tu Landeros MD Active PREDNISONE 20 MG ORAL TABLET 2 po qd x 5 days PREDNISONE 61746856443 No Longer Active Tu Landeros MD Active FLUTICASONE PROPIONATE 50 MCG/ACT NASAL SUSPENSION 2 sprays/nostril qd PRN Congestion/Allergies FLUTICASONE PROPIONATE 64690743825 Active Tu Landeros MD Active NASONEX 50 MCG/ACT NASAL SUSPENSION 2 actuations in each nostril q day 07/15 MOMETASONE FUROATE 29604113409 No Longer Active Tu Landeros MD Active MAGNESIUM OXIDE 400 MG ORAL TABLET 1 po BID MAGNESIUM OXIDE 72644694775 Active Tu Landeros MD Active SIMVASTATIN 20 MG ORAL TABLET 0.5 po qHS SIMVASTATIN 67724030366 Active Tu Landeros MD Active DICLOFENAC SODIUM 75 MG ORAL TABLET DELAYED RELEASE 1 po BID PRN Pain DICLOFENAC SODIUM 81215360657 No Longer Active Tu Landeros MD Active GABAPENTIN 100 MG ORAL CAPSULE 1 po TID GABAPENTIN 04230821460 Active Tu Landeros MD Active DICLOFENAC SODIUM 50 MG ORAL TABLET DELAYED RELEASE 1 po BID PRN Pain DICLOFENAC SODIUM 68620229510 No Longer Active Tu Landeros MD Active CYCLOBENZAPRINE HCL 10 MG ORAL TABLET 1 po TID PRN Muscle Spasm CYCLOBENZAPRINE HCL 50159481500 No Longer Active Tu Landeros MD Active INVOKANA 100 MG ORAL TABLET 1 po qd CANAGLIFLOZIN 11336793055 Active José Luis Becerra MD Active GLIPIZIDE 5 MG ORAL TABLET 1 po qd GLIPIZIDE 62543880231 No Longer Active Tu Landeros MD Active VENLAFAXINE HCL 75 MG ORAL TABLET 1 po BID VENLAFAXINE HCL 95631472953 Active Tu Landeros MD Active GLIMEPIRIDE 1 MG ORAL TABLET 1 po qd GLIMEPIRIDE 29059172596 No Longer Active Tu Landeros MD Active TRUE METRIX BLOOD GLUCOSE TEST IN VITRO STRIP Test blood sugar BID Dx: E11.9 GLUCOSE BLOOD 45924209293 Active Tu Landeros MD Active TRUE METRIX AIR GLUCOSE METER w/Device KIT Test blood glucose BID Dx: E11.9 BLOOD GLUCOSE MONITORING SUPPL 08003920796 Active Tu Landeros MD Active TRUETEST TEST IN VITRO STRIP test blood sugar twice daily. DX 250.0 GLUCOSE BLOOD 30819493531 No Longer Active Mirna Stanley LPN Active TRUEDRAW LANCING DEVICE test blood sugar twice daily dx: 250.00 LANCET DEVICES 09511096091 No Longer Active Mirna Stanley LPN Active ENALAPRIL MALEATE 20 MG ORAL TABLET 2 po qd ENALAPRIL MALEATE 40253655991 Active Tu Landeros MD Active SUPER B COMPLEX/VITAMIN C ORAL TABLET 1 qd B COMPLEX- C 37667019086 No Longer Active Tu Landeros MD Active ASPIRIN EC 81 MG ORAL TABLET DELAYED RELEASE 1 po qd ASPIRIN 16182702369 Active Tu Landeros MD Active GLUCOSAMINE 500 MG TABS 2 po qd GLUCOSAMINE Active Tu Landeros MD Active FISH OIL 1000 MG ORAL CAPSULE 1 po qd OMEGA-3 FATTY ACIDS 08722234550 Active Tu Landeros MD Active METFORMIN HCL 1000 MG ORAL TABLET 1 po BID METFORMIN HCL 34424976301 Active Tu Landeros MD Active KLOR-CON 10 10 MEQ ORAL TABLET EXTENDED RELEASE 2 po qd POTASSIUM CHLORIDE 97483736208 Active Tu Landeros MD Active FUROSEMIDE 40 MG ORAL TABLET 1 po qd FUROSEMIDE 05224614271 Active Tu Landeros MD Active REQUIP 2 MG ORAL TABLET 1 po qHS PRN Restless legs ROPINIROLE HCL 25697566465 Active Tu Landeros MD Active REQUIP 2 MG ORAL TABLET Take one tablet at bedtime prn ROPINIROLE HCL 13331815300 No Longer Active Tu Landeros MD Active VENTOLIN HFA 108 (90 Base) MCG/ACT INHALATION AEROSOL SOLUTION 1-2 puffs every 4 hours if needed for cough/congestion ALBUTEROL SULFATE 88311852900 No Longer Active Ambika Aden APRN Active ZITHROMAX 250 MG ORAL TABLET 2 po today, then 1 po q days 2-5 AZITHROMYCIN 43029551729 No Longer Active Miranda Farah APRN Active FLONASE 50 MCG/ACT NASAL SUSPENSION 1 spray each nostril twice daily until bottle empty FLUTICASONE PROPIONATE 00704499765 No Longer Active Tu Landeros MD Active COLACE 100 MG ORAL CAPSULE 1 po BID PRN Constipation DOCUSATE SODIUM 43919709222 Active Tu Landeros MD Active TRUERESULT BLOOD GLUCOSE w/Device KIT test blood sugar twice daily dx 250.00 BLOOD GLUCOSE MONITORING SUPPL 79027117374 No Longer Active Tu Landeros MD Active TRUEDRAW LANCING DEVICE Test twice a day dx 250.0 LANCET DEVICES 69804258874 No Longer Active Tu Landeros MD Active PREDNISONE 20 MG ORAL TABLET 2 tablets once daily for 2 days, then 1 tablet once daily for 2 days PREDNISONE 44501654582 No Longer Active Tu Landeros MD Active DICLOFENAC SODIUM 50 MG ORAL TABLET DELAYED RELEASE 1 tablet by mouth three times a day as needed DICLOFENAC SODIUM 60026063383 No Longer Active Fab Morales DO Active EMBRACE BLOOD GLUCOSE TEST IN VITRO STRIP test blood sugar twice daily DX 250.0 GLUCOSE BLOOD 11938285577 No Longer Active Tu Landeros MD Active TRUETEST TEST IN VITRO STRIP test blood sugar three times daily dx: 250.00 GLUCOSE BLOOD 81800079346 No Longer Active Suze VOGEL Active TRUERESULT BLOOD GLUCOSE w/Device KIT use to test blood sugar tid dx: 250.00 BLOOD GLUCOSE MONITORING SUPPL 41349652327 No Longer Active Suzebianca VOGEL Active ALIGN 4 MG ORAL CAPSULE 1 tid PROBIOTIC PRODUCT 43159061790 No Longer Active Shaun Sy MD Active CIPRO 500 MG ORAL TABLET 1 bid x 14 days start 09-28-13 CIPROFLOXACIN HCL 68590793049 No Longer Active Shaun Sy MD Active TRAMADOL HCL 50 MG ORAL TABLET 1-2 tablets every 6 hours as needed for pain TRAMADOL HCL 22699574490 Active Tu Landeros MD Active HYDROCODONE-ACETAMINOPHEN 5-325 MG ORAL TABLET 1 tab by mouth every 6 hours as needed for pain HYDROCODONE-ACETAMINOPHEN 55971299332 No Longer Active Tu Landeros MD Active OMEPRAZOLE 20 MG ORAL CAPSULE DELAYED RELEASE 1 po q a.m. OMEPRAZOLE 33268148548 Active Tu Landeros MD Active GABAPENTIN 100 MG ORAL CAPSULE 1 po bid GABAPENTIN 08829881884 No Longer Active Tu Landeros MD Active B-12 100 MCG ORAL TABLET Take one by mouth daily CYANOCOBALAMIN 19948969642 No Longer Active Tu Landeros MD Active BACTRIM DS 800-160 MG ORAL TABLET 1 bid x 14 day start 09-28-13 SULFAMETHOXAZOLE-TRIMETHOPRIM 86627803126 No Longer Active Tu Landeros MD Active CARVEDILOL 12.5 MG ORAL TABLET 1 po BID CARVEDILOL 61327984024 Active Tu Landeros MD Active FENOFIBRATE 145 MG ORAL TABLET 1 po qd FENOFIBRATE 08509183134 No Longer Active JASPREET Perez Active OMEPRAZOLE 20 MG ORAL TABLET DELAYED RELEASE 1 PO 30 MIN BEFORE 1ST MEAL 2010 OMEPRAZOLE 70239890166 No Longer Active JASPREET Perez Active SIMVASTATIN 40 MG ORAL TABLET Take one by mouth daily SIMVASTATIN 47696639043 No Longer Active JASPREET Perez Active VENLAFAXINE HCL 75 MG ORAL TABLET 1 po BID VENLAFAXINE HCL 82568198705 No Longer Active JASPREET Perez Active CIPRO 500 MG ORAL TABLET 1 tablet by mouth twice daily CIPROFLOXACIN HCL 11568008315 No Longer Active Tu Landeros MD Active VENLAFAXINE HCL 37.5 MG ORAL TABLET 1 po BID VENLAFAXINE HCL 45411424723 No Longer Active Suze NUNOA Active LAMISIL 250 MG ORAL TABLET 1 po qd TERBINAFINE HCL 13650045599 No Longer Active Tu Landeros MD Active LORTAB 5-500 MG ORAL TABLET 1/2 to 1 tablet by mouth every 4 hours as needed for pain HYDROCODONE-ACETAMINOPHEN 29966698912 No Longer Active Tu Landeros MD Active HYDROCODONE-ACETAMINOPHEN 5-500 MG ORAL TABLET take one po Q 4-6 hours prn HYDROCODONE-ACETAMINOPHEN 63298987074 No Longer Active Tu Landeros MD Active BACTRIM DS 800-160 MG ORAL TABLET 1 po BID x 7 days SULFAMETHOXAZOLE-TRIMETHOPRIM 96886878959 No Longer Active Tu Landeros MD Active VENLAFAXINE HCL 75 MG ORAL TABLET 1 po BID VENLAFAXINE HCL 16888672051 No Longer Active Elvira Cervantes MD PhD Active TRAMADOL HCL 50 MG ORAL TABLET 1 tablets every 6 hours as needed for pain TRAMADOL HCL 78964862566 No Longer Active Tu Landeros MD Active ACCU-CHEDawson FASTCLIX LANCETS Use to check bloodsugar three times daily as needed LANCETS 93936177992 No Longer Active Tu Landeros MD Active ACCU-CHEDawson KEYONA PLUS IN VITRO STRIP Use for testing bloodsugars three times daily as needed GLUCOSE BLOOD 70778337789 No Longer Active Tu Landeros MD Active ACCU-CHEK KEYONA PLUS w/Device KIT Use for testing bloodsugars three times daily as needed BLOOD GLUCOSE MONITORING SUPPL 77263025861 No Longer Active Tu Landeros MD Active SPIRONOLACTONE 25 MG ORAL TABLET 0.5 tablet by mouth daily 09/09 SPIRONOLACTONE 22461741045 No Longer Active Tu Landeros MD Active ALPRAZOLAM 0.5 MG ORAL TABLET 1 tab every 6hrs as needed ALPRAZOLAM 69676664339 No Longer Active Tu Landeros MD Active AUGMENTIN 875-125 MG ORAL TABLET 1 tab by mouth twice daily with food AMOXICILLIN-POT CLAVULANATE 80459383106 No Longer Active Tu Landeros MD Active PREDNISONE 20 MG ORAL TABLET 2 tabs daily for 3 days, 1 tab daily for 3 days, 1/2 tab daily for 2 days PREDNISONE 92949241179 No Longer Active Tu Ladneros MD Active XANAX 0.5 MG ORAL TABLET 1 tablet every 6 hrs prn ALPRAZOLAM 38111238748 No Longer Active Tu Landeros MD Active PREDNISONE 20 MG ORAL TABLET 2 tabs daily for 3 days, 1 tab daily for 3 days, 1/2 tab daily for 2 days PREDNISONE 46606540759 No Longer Active Tu Landeros MD Active TRIAMCINOLONE ACETONIDE 0.1 % EXTERNAL OINTMENT Apply to affected areas TID for up to 2 weeks TRIAMCINOLONE ACETONIDE 72120776784 No Longer Active Tu Landeros MD Active LORTAB 5-500 MG ORAL TABLET 1/2 to 1 tablet by mouth every 4 hours as needed for pain HYDROCODONE-ACETAMINOPHEN 17270837364 No Longer Active Tu Landeros MD Active MULTIVITAMINS TABS Take one by mouth daily MULTIPLE VITAMIN 98740640193 No Longer Active Tu Landeros MD Active MELATONIN 5 MG ORAL TABLET Take one by mouth daily MELATONIN 32134239547 No Longer Active Tu Landeros MD Active SOMA 350 MG ORAL TABLET 1 po q 6 hours prn spasm CARISOPRODOL 55283942487 No Longer Active Tu Landeros MD Active MECLIZINE HCL 25 MG ORAL TABLET CHEWABLE 1 four times a day as needed for dizziness MECLIZINE HCL 42722244979 No Longer Active Fab Morales DO Active ANGEL BREEZE 2 TEST IN VITRO DISK test tid prn GLUCOSE BLOOD 76711251271 No Longer Active Negra Scott RN Active REGLAN 10 MG ORAL TABLET 1 po TID PRN Nausea METOCLOPRAMIDE HCL 14615741806 No Longer Active Tu Landeros MD Active METFORMIN HCL 500 MG ORAL TABLET 1 PO BID METFORMIN HCL 89123292821 No Longer Active Tu Landeros MD Active AMBIEN 10 MG ORAL TABLET 1 tab by mouth at bedtime as needed for sleep 06/10 ZOLPIDEM TARTRATE 55471024809 No Longer Active Tu Landeros MD Active FLUOXETINE HCL 40 MG ORAL CAPSULE 1 po q day FLUOXETINE HCL 72388087432 No Longer Active Mayra Cresco Active TRILIPIX 135 MG ORAL CAPSULE DELAYED RELEASE 1 po qd CHOLINE FENOFIBRATE 78883818472 No Longer Active Tu Landeros MD Active AMBIEN 10 MG ORAL TABLET 1 tab by mouth at bedtime as needed for sleep 06/10 AMBIEN 10 MG ORAL TABLET 962372 ZOLPIDEM TARTRATE Inactive METFORMIN HCL 500 MG ORAL TABLET 1 PO BID METFORMIN HCL 500 MG ORAL TABLET 407353 METFORMIN HCL Inactive REGLAN 10 MG ORAL TABLET 1 po TID PRN Nausea REGLAN 10 MG ORAL TABLET 289353 METOCLOPRAMIDE HCL Inactive MECLIZINE HCL 25 MG ORAL TABLET CHEWABLE 1 four times a day as needed for dizziness MECLIZINE HCL 25 MG ORAL TABLET CHEWABLE 661460 MECLIZINE HCL Inactive SOMA 350 MG ORAL TABLET 1 po q 6 hours prn spasm SOMA 350 MG ORAL TABLET 155163 CARISOPRODOL Inactive MELATONIN 5 MG ORAL TABLET Take one by mouth daily MELATONIN 5 MG ORAL TABLET 788889 MELATONIN Inactive MULTIVITAMINS TABS Take one by mouth daily MULTIVITAMINS TABS MULTIPLE VITAMIN Inactive LORTAB 5-500 MG ORAL TABLET 1/2 to 1 tablet by mouth every 4 hours as needed for pain LORTAB 5-500 MG ORAL TABLET HYDROCODONE- ACETAMINOPHEN Inactive XANAX 0.5 MG ORAL TABLET 1 tablet every 6 hrs prn XANAX 0.5 MG ORAL TABLET 705237 ALPRAZOLAM Inactive AUGMENTIN 875-125 MG ORAL TABLET 1 tab by mouth twice daily with food AUGMENTIN 875-125 MG ORAL TABLET 358121 AMOXICILLIN-POT CLAVULANATE Inactive ALPRAZOLAM 0.5 MG ORAL TABLET 1 tab every 6hrs as needed ALPRAZOLAM 0.5 MG ORAL TABLET 161092 ALPRAZOLAM Inactive SPIRONOLACTONE 25 MG ORAL TABLET 0.5 tablet by mouth daily 09/09 SPIRONOLACTONE 25 MG ORAL TABLET 364792 SPIRONOLACTONE Inactive ACCU-CHEK KEYONA PLUS w/Device KIT [...] times daily as needed ACCU-CHEK FASTCLIX LANCETS 17925254031 LANCETS Inactive TRAMADOL HCL 50 MG ORAL TABLET 1 tablets every 6 hours as needed for pain TRAMADOL HCL 50 MG ORAL TABLET 440550 TRAMADOL HCL Inactive VENLAFAXINE HCL 75 MG ORAL TABLET 1 po BID VENLAFAXINE HCL 75 MG ORAL TABLET 956573 VENLAFAXINE HCL Inactive HYDROCODONE-ACETAMINOPHEN 5-500 MG ORAL TABLET take one po Q 4-6 hours prn HYDROCODONE-ACETAMINOPHEN 5-500 MG ORAL TABLET HYDROCODONE-ACETAMINOPHEN Inactive LORTAB 5-500 MG ORAL TABLET 1/2 to 1 tablet by mouth every 4 hours as needed for pain LORTAB 5-500 MG ORAL TABLET HYDROCODONE- ACETAMINOPHEN Inactive LAMISIL 250 MG ORAL TABLET 1 po qd LAMISIL 250 MG ORAL TABLET 916145 TERBINAFINE HCL Inactive VENLAFAXINE HCL 37.5 MG ORAL TABLET 1 po BID VENLAFAXINE HCL 37.5 MG ORAL TABLET 062452 VENLAFAXINE HCL Inactive CIPRO 500 MG ORAL TABLET 1 tablet by mouth twice daily CIPRO 500 MG ORAL TABLET 661535 CIPROFLOXACIN HCL Inactive VENLAFAXINE HCL 75 MG ORAL TABLET 1 po BID VENLAFAXINE HCL 75 MG ORAL TABLET 818670 VENLAFAXINE HCL Inactive SIMVASTATIN 40 MG ORAL TABLET Take one by mouth daily SIMVASTATIN 40 MG ORAL TABLET 049129 SIMVASTATIN Inactive OMEPRAZOLE 20 MG ORAL TABLET DELAYED RELEASE 1 PO 30 MIN BEFORE 1ST MEAL 2010 OMEPRAZOLE 20 MG ORAL TABLET DELAYED RELEASE 050155 OMEPRAZOLE Inactive FENOFIBRATE 145 MG ORAL TABLET 1 po qd FENOFIBRATE 145 MG ORAL TABLET 353639 FENOFIBRATE Inactive BACTRIM DS 800-160 MG ORAL TABLET 1 bid x 14 day start 09-28-13 BACTRIM DS 800-160 MG ORAL TABLET 341048 SULFAMETHOXAZOLE- TRIMETHOPRIM Inactive B-12 100 MCG ORAL TABLET Take one by mouth daily B-12 100 MCG ORAL TABLET CYANOCOBALAMIN Inactive GABAPENTIN 100 MG ORAL CAPSULE 1 po bid GABAPENTIN 100 MG ORAL CAPSULE 085748 GABAPENTIN Inactive HYDROCODONE-ACETAMINOPHEN 5-325 MG ORAL TABLET 1 tab by mouth every 6 hours as needed for pain HYDROCODONE-ACETAMINOPHEN 5-325 MG ORAL TABLET 300986 HYDROCODONE-ACETAMINOPHEN Inactive CIPRO 500 MG ORAL TABLET 1 bid x 14 days start 814 CIPRO 500 MG ORAL TABLET 867192 CIPROFLOXACIN HCL Inactive ALIGN 4 MG ORAL [...] SODIUM 50 MG ORAL TABLET DELAYED RELEASE 955582 DICLOFENAC SODIUM Inactive PREDNISONE 20 MG ORAL TABLET 2 tablets once daily for 2 days, then 1 tablet once daily for 2 days PREDNISONE 20 MG ORAL TABLET 756235 PREDNISONE Inactive TRUEDRAW LANCING DEVICE Test twice a day dx 250.0 TRUEDRAW LANCING DEVICE LANCET DEVICES Inactive TRUERESULT BLOOD GLUCOSE w/Device KIT test blood sugar twice daily dx 250.00 TRUERESULT BLOOD GLUCOSE w/Device KIT BLOOD GLUCOSE MONITORING SUPPL Inactive FLONASE 50 MCG/ACT NASAL SUSPENSION 1 spray each nostril twice daily until bottle empty FLONASE 50 MCG/ACT NASAL SUSPENSION 8102086 FLUTICASONE PROPIONATE Inactive VENTOLIN HFA 108 (90 Base) MCG/ACT INHALATION AEROSOL SOLUTION 1-2 puffs every 4 hours if needed for cough/congestion VENTOLIN HFA 108 (90 Base) MCG/ACT INHALATION AEROSOL SOLUTION ALBUTEROL SULFATE Inactive REQUIP 2 MG ORAL TABLET Take one tablet at bedtime prn REQUIP 2 MG ORAL TABLET 519853 ROPINIROLE HCL Inactive SUPER B COMPLEX/VITAMIN C ORAL TABLET 1 qd SUPER B COMPLEX/VITAMIN C ORAL TABLET 61715294780 B COMPLEX-C Inactive TRUEDRAW LANCING DEVICE test blood sugar twice daily dx: 250.00 TRUEDRAW LANCING DEVICE LANCET DEVICES Inactive TRUETEST TEST IN VITRO STRIP test blood sugar twice daily. DX 250.0 TRUETEST TEST IN VITRO STRIP GLUCOSE BLOOD Inactive CYCLOBENZAPRINE HCL 10 MG ORAL TABLET 1 po TID PRN Muscle Spasm CYCLOBENZAPRINE HCL 10 MG ORAL TABLET 396645 CYCLOBENZAPRINE HCL Inactive DICLOFENAC SODIUM 50 MG ORAL TABLET DELAYED RELEASE 1 po BID PRN Pain DICLOFENAC SODIUM 50 MG ORAL TABLET DELAYED RELEASE 071653 DICLOFENAC SODIUM Inactive DICLOFENAC SODIUM 75 MG ORAL TABLET DELAYED RELEASE 1 po BID PRN Pain DICLOFENAC SODIUM 75 MG ORAL TABLET DELAYED RELEASE 354984 DICLOFENAC SODIUM Inactive NASONEX 50 MCG/ACT NASAL SUSPENSION 2 actuations in each nostril q day 07/15 NASONEX 50 MCG/ACT NASAL SUSPENSION 7237696 MOMETASONE FUROATE Inactive GUAIFENESIN ER 600 MG ORAL TABLET EXTENDED RELEASE 12 HOUR 1 twice a day as needed for congestion GUAIFENESIN ER 600 MG ORAL TABLET EXTENDED RELEASE 12 HOUR GUAIFENESIN Inactive AZITHROMYCIN 250 MG ORAL TABLET 2 po qd x 1, then 1 po qd x 4 AZITHROMYCIN 250 MG ORAL TABLET 549879 AZITHROMYCIN Inactive PROMETHAZINE-CODEINE 6.25-10 MG/5ML ORAL SYRUP 5ml po q6hr PRN Cough PROMETHAZINE-CODEINE 6.25-10 MG/5ML ORAL SYRUP 242448 PROMETHAZINE-CODEINE Inactive TRILIPIX 135 MG ORAL CAPSULE DELAYED RELEASE 1 q hs TRILIPIX 135 MG ORAL CAPSULE DELAYED RELEASE 247953 CHOLINE FENOFIBRATE Inactive TRIAMCINOLONE ACETONIDE 0.1 % EXTERNAL OINTMENT Apply to affected areas TID for up to 2 weeks TRIAMCINOLONE ACETONIDE 0.1 % EXTERNAL OINTMENT 3732331 TRIAMCINOLONE ACETONIDE Inactive PREDNISONE 20 MG ORAL TABLET 2 tabs daily for 3 days, 1 tab daily for 3 days, 1/2 tab daily for 2 days PREDNISONE 20 MG ORAL TABLET 113727 PREDNISONE Inactive PREDNISONE 20 MG ORAL TABLET 2 tabs daily for 3 days, 1 tab daily for 3 days, 1/2 tab daily for 2 days PREDNISONE 20 MG ORAL TABLET 145561 PREDNISONE Inactive BACTRIM DS 800-160 MG ORAL TABLET 1 po BID x 7 days BACTRIM DS 800-160 MG ORAL TABLET 502942 SULFAMETHOXAZOLE-TRIMETHOPRIM Inactive ZITHROMAX 250 MG ORAL TABLET 2 po today, then 1 po q days 2-5 ZITHROMAX 250 MG ORAL TABLET 261778 AZITHROMYCIN Inactive PREDNISONE 20 MG ORAL TABLET 2 po qd x 5 days PREDNISONE 20 MG ORAL TABLET 833350 PREDNISONE Inactive Advance Directives Directive Description Start Date DISCUSSED WITH PATIENT -- NO DECISION MADE Immunizations Vaccine Administration Date Value Standard Description Seasonal influenza vaccine, injectable, containing preservative, for > 3 years old (Afluria, FluLaval, Fluzone, Fluvirin, Fluarix, Agriflu(>=18 yo)) Fluzone (>3 yrs.) [[id number]] Influenza, seasonal, injectable influenza immunization (Flu Vax) has been administered 02/22/2012 influenza virus vaccine, unspecified formulation Seasonal influenza vaccine, injectable, containing preservative, for > 3 years old (Afluria, FluLaval, Fluzone, Fluvirin, Fluarix, Agriflu(>=18 yo)) Fluzone (>3 yrs.) [[id number]] Influenza, seasonal, injectable Vital Signs Date Name [...] ... - Chemistry sodium, serum 141 mmol/L 761-220 3252/01/16 carbon dioxide, venous blood 28.3 mmol/L 21.0-32.0 [...] 6.7 % 4.3-6.0 cholesterol, serum 106 mg/dL 284-837 2128/01/16 triglyceride, serum, fasting 173 mg/dL 30-200 HDL [...] Magnesium - Chemistry sodium, serum 142 mmol/L 294-258 7201/07/16 carbon dioxide, venous blood 29.4 mmol/L 21.0-32.0 [...] Panel - Chemistry cholesterol, serum 170 mg/dL 946-973 8564/07/16 triglyceride, serum, fasting 266 mg/dL 30-200 HDL cholesterol, serum 42 mg/dL 32-60 LDL cholesterol, serum 75 mg/dL 0-130 Encounters Code Encounter Date Provider Facility CPT-44063 Level 4 Est. Patient 14:46:36 CDT Tu Landeros MD [facility] CPT-54243 Level 3 Est. Patient 10:28:05 CDT Tu Landeros MD [facility] CPT-79461 Level 3 Est. Patient 09:11:32 CDT Tu Landeros MD [facility] CPT-55181 Level 3 Est. Patient 10:13:19 TOOL DISPATCHER Lesli Kellogg APRN [facility] CPT-44519 Level 4 Est. Patient 13:42:02 TOOL DISPATCHER Tu Landeros MD [facility] CPT-76040 Level 3 Est. Patient 14:20:36 CDT Tu Landeros MD [facility] CPT-57690 Level 4 Est. Patient 14:28:34 CDT Tu Landeros MD [facility] CPT-73977 Level 3 Est. Patient 13:33:09 CDT Tu Landeros MD [facility] CPT-61039 Level 4 Est. Patient 14:29:21 CDT Tu Landeros MD [facility] CPT-93615 Level 4 Est. Patient 09:08:17 TOOL DISPATCHER Tu Landeros MD [facility] CPT-88461 Level 4 Est. Patient 14:40:19 CDT Tu Landeros MD [facility] CPT-35187 Level 4 Est. Patient 14:06:04 TOOL DISPATCHER Tu Landeros MD [facility] CPT-38657 Level 3 Est. Patient 14:05:18 TOOL DISPATCHER Tu Landeros MD [facility] CPT-04424 Level 3 Est. Patient 10:06:54 TOOL DISPATCHER Miranda Farah APRN [facility] CPT-85145 Level 4 Est. Patient 13:50:18 TOOL DISPATCHER Tu Landeros MD [facility] CPT-83948 Level 3 Est. Patient 10:30:04 CDT Tu Landeros MD [facility] CPT-36087 Level 4 Est. Patient 11:03:38 CDT Tu Landeros MD [facility] CPT-68727 Level 3 Est. Patient 10:20:44 CDT Fab Morales DO [facility] CPT-12656 Level 4 Est. Patient 14:38:57 CDT Tu Landeros MD [facility] CPT-36787 Level 4 Est. Patient 14:27:39 TOOL DISPATCHER Tu Landeros MD [facility] CPT-85919 Level 4 Est. Patient 09:45:25 CDT Tu Landeros MD [facility] CPT-57527 Level 4 Est. Patient 09:05:20 TOOL DISPATCHER Tu Landeros MD [facility] CPT-86483 Level 4 Est. Patient 14:09:06 CDT Tu Landeros MD [facility] CPT-79174 Level 3 Est. Patient 13:36:54 CDT Tu Landeros MD [facility] CPT-83769 Level 3 Est. Patient 08:59:14 CDT Tu Landeros MD [facility] CPT-37043 Level 3 Est. Patient 13:48:35 CDT Fab Morales DO [facility] CPT-95087 Level 4 Est. Patient 10:05:48 CDT Tu Landeros MD [facility] CPT-58000 Level 3 Est. Patient 13:38:42 CDT Marek BANKS [facility] CPT-42791 Level 5 Est. Patient 08:08:39 CDT Jerrica FRANCIS [facility] CPT-31070 Level 4 Est. Patient 14:23:38 CDT Tu Landeros MD [facility] CPT-86791 Level 3 Est. Patient 11:44:04 CDT Tu Landeros MD [facility] CPT-98195 Level 3 Est. Patient 11:03:20 TOOL DISPATCHER Tu Landeros MD [facility] CPT-12550 Level 3 Est. Patient 11:03:14 TOOL DISPATCHER Tu Landeros MD [facility] CPT-59545 Level 3 Est. Patient 12:42:49 CDT Tu Landeros MD [facility] CPT-73880 Level 3 Est. Patient 11:52:06 CDT Tu Landeros MD [facility] CPT-72123 Level 3 Est. Patient 13:58:11 CDT Tu Landeros MD [facility] CPT-64712 Level 3 Est. Patient 17:50:07 CDT Fab Morales DO [facility] CPT-73694 Level 3 Est. Patient 12:06:29 CDT Elvira Cervantes MD PhD [facility] CPT-56007 Level 3 Est. Patient 15:50:32 CDT Tu Landeros MD [facility] CPT-43644 Level 4 Est. Patient 16:08:29 CDT Tu Landeros MD [facility] CPT-51484 Level 3 Est. Patient 16:04:19 CDT Tu Landeros MD [facility] CPT-45415 Level 3 Est. Patient 11:22:30 TOOL DISPATCHER Tu Landeros MD [facility] CPT-68862 Level 4 Est. Patient 16:24:02 TOOL DISPATCHER Tu Landeros MD [facility] CPT-93496 Level 3 Est. 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 CPT-04058 Lipid - LAB USE ONLY 11:14:20 TOOL DISPATCHER CPT-46845 HGBA1C - LAB USE ONLY 11:14:20 TOOL DISPATCHER CPT-10411 CMP - LAB USE ONLY 11:14:19 TOOL DISPATCHER CPT-52621 CBC - LAB USE ONLY 11:14:19 TOOL DISPATCHER CPT-04572 Venipuncture Draw Fee 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 First Vx - Ix admin for Medicare patients 16:46:52 CDT CPT-20770 Fluzone Preservative Free Intramuscular Suspension 16:46 :51 CDT CPT-64848 CBC - LAB USE ONLY 17:14:46 CDT CPT-01192 HGBA1C - LAB USE ONLY 17:14:46 CDT CPT-59033 Venipuncture Draw Fee 17:14:46 CDT CPT-G0438 Initial Annual Wellness Exam 14:13:04 CDT CPT-12883 Breathing Tx 10:06:54 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 CPT-88855 Postop F/U Visit 10:02:45 CDT CPT-LR Lesion Removal 09:02:56 CDT CPT-JTINJ Asp/Joint Injection 15:51:27 TOOL DISPATCHER CPT-OV Office Visit 15:52:02 TOOL DISPATCHER CPT-OV Office Visit 15:45:11 CDT CPT-000 Give Zostavax 14:09:06 CDT CPT-58187 Administration single or combination vaccine inc oral 15 :19:04 CDT CPT-19225 Zoster Vaccine (Zostavax) 15:19:04 CDT CPT-41533 Administration single or combination vaccine inc oral 20 :51:03 CDT CPT-67381 Influenza split virus > age 3 20:51:03 CDT CPT-50632 No Charge Offi Visit 14:52:03 CDT CPT-OV Office Visit 14:57:43 CDT CPT-OV Office Visit 15:22:32 CDT CPT-20035 Administration single or combination vaccine inc oral 11 :33:15 CDT CPT-67948 Influenza split virus > age 3 11:33:15 CDT
--- OUTSIDE RECORDS SUMMARY | 2018-04-25 12:02 | XMS REPORT | Clinical Summary ---
Author Author Admin, SACHI Organization [employer] Address Unknown Phone Unavailable Allergies, Adverse Reactions, [...] CONTUSION OF UNSPECIFIED SITE 924.9 Resolved Tu Landreos MD Contusion of unspecified site PRESSURE ULCER [...] magnesium metabolism URI 465.9 Inactive Lesli Kellogg [employer]ILDCARE AIDE Acute upper respiratory infections of unspecified site [...] 1 GM ORAL CAPSULE 1 po qd [id number] ETHYL ESTERS 97234580867 Active Tu Landeros MD Active TRILIPIX 135 MG ORAL CAPSULE DELAYED RELEASE 1 q hs CHOLINE FENOFIBRATE 80980556774 No Longer Active Cynthia NUNOA Active TRIAMCINOLONE ACETONIDE 0.1 % EXTERNAL CREAM Apply to affected area TID for up to 2 weeks TRIAMCINOLONE ACETONIDE 78159795934 Active Tu Landeros MD Active INDOMETHACIN 50 MG ORAL CAPSULE 1 po TID PRN Pain INDOMETHACIN 70388926691 Active Tu Landeros MD Active PROMETHAZINE-CODEINE 6.25-10 MG/5ML ORAL SYRUP 5ml po q6hr PRN Cough PROMETHAZINE-CODEINE 42956782714 No Longer Active Tu Landeros MD Active AZITHROMYCIN 250 MG ORAL TABLET 2 po qd x 1, then 1 po qd x 4 AZITHROMYCIN 48347946387 No Longer Active Tu Landeros MD Active GUAIFENESIN ER 600 MG ORAL TABLET EXTENDED RELEASE 12 HOUR 1 twice a day as needed for congestion GUAIFENESIN 58505993582 No Longer Active Tu Landeros MD Active PREDNISONE 20 MG ORAL TABLET 2 po qd x 5 days PREDNISONE 45417527973 No Longer Active Tu Landeros MD Active FLUTICASONE PROPIONATE 50 MCG/ACT NASAL SUSPENSION 2 sprays/nostril qd PRN Congestion/Allergies FLUTICASONE PROPIONATE 23311575118 Active Tu Landeros MD Active NASONEX 50 MCG/ACT NASAL SUSPENSION 2 actuations in each nostril q day 07/15 MOMETASONE FUROATE 48688679229 No Longer Active Tu Landeros MD Active MAGNESIUM OXIDE 400 MG ORAL TABLET 1 po BID MAGNESIUM OXIDE 22024467510 Active Tu Landeros MD Active SIMVASTATIN 20 MG ORAL TABLET 0.5 po qHS SIMVASTATIN 48963769001 Active Tu Landeros MD Active DICLOFENAC SODIUM 75 MG ORAL TABLET DELAYED RELEASE 1 po BID PRN Pain DICLOFENAC SODIUM 56947541572 No Longer Active Tu Landeros MD Active GABAPENTIN 100 MG ORAL CAPSULE 1 po TID GABAPENTIN 65063026622 Active Tu Landeros MD Active DICLOFENAC SODIUM 50 MG ORAL TABLET DELAYED RELEASE 1 po BID PRN Pain DICLOFENAC SODIUM 97346627784 No Longer Active Tu Landeros MD Active CYCLOBENZAPRINE HCL 10 MG ORAL TABLET 1 po TID PRN Muscle Spasm CYCLOBENZAPRINE HCL 76395095009 No Longer Active Tu Landeros MD Active INVOKANA 100 MG ORAL TABLET 1 po qd CANAGLIFLOZIN 11378888570 Active José Luis Becerra MD Active GLIPIZIDE 5 MG ORAL TABLET 1 po qd GLIPIZIDE 93561169529 No Longer Active Tu Landeros MD Active VENLAFAXINE HCL 75 MG ORAL TABLET 1 po BID VENLAFAXINE HCL 41318193137 Active Tu Landeros MD Active GLIMEPIRIDE 1 MG ORAL TABLET 1 po qd GLIMEPIRIDE 41010794017 No Longer Active Tu Landeros MD Active TRUE METRIX BLOOD GLUCOSE TEST IN VITRO STRIP Test blood sugar BID Dx: E11.9 GLUCOSE BLOOD 95225051371 Active Tu Landeros MD Active TRUE METRIX AIR GLUCOSE METER w/Device KIT Test blood glucose BID Dx: E11.9 BLOOD GLUCOSE MONITORING SUPPL 89063639077 Active Tu Landeros MD Active TRUETEST TEST IN VITRO STRIP test blood sugar twice daily. DX 250.0 GLUCOSE BLOOD 75509376424 No Longer Active Mirna Stanley LPN Active TRUEDRAW LANCING DEVICE test blood sugar twice daily dx: 250.00 LANCET DEVICES 46316971991 No Longer Active Mirna Stanley LPN Active ENALAPRIL MALEATE 20 MG ORAL TABLET 2 po qd ENALAPRIL MALEATE 46963470483 Active Tu Landeros MD Active SUPER B COMPLEX/VITAMIN C ORAL TABLET 1 qd B COMPLEX- C 68664447401 No Longer Active Tu Landeros MD Active ASPIRIN EC 81 MG ORAL TABLET DELAYED RELEASE 1 po qd ASPIRIN 97058812547 Active Tu Landeros MD Active GLUCOSAMINE 500 MG TABS 2 po qd GLUCOSAMINE Active Tu Landeros MD Active FISH OIL 1000 MG ORAL CAPSULE 1 po qd OMEGA-3 FATTY ACIDS 63016470259 Active Tu Landeros MD Active METFORMIN HCL 1000 MG ORAL TABLET 1 po BID METFORMIN HCL 10585665785 Active Tu Landeros MD Active KLOR-CON 10 10 MEQ ORAL TABLET EXTENDED RELEASE 2 po qd POTASSIUM CHLORIDE 77328217479 Active Tu Landeros MD Active FUROSEMIDE 40 MG ORAL TABLET 1 po qd FUROSEMIDE 53768079623 Active Tu Landeros MD Active REQUIP 2 MG ORAL TABLET 1 po qHS PRN Restless legs ROPINIROLE HCL 42580425786 Active Tu Landeros MD Active REQUIP 2 MG ORAL TABLET Take one tablet at bedtime prn ROPINIROLE HCL 12151230161 No Longer Active Tu Landeros MD Active VENTOLIN HFA 108 (90 Base) MCG/ACT INHALATION AEROSOL SOLUTION 1-2 puffs every 4 hours if needed for cough/congestion ALBUTEROL SULFATE 87907945130 No Longer Active Ambika Aden APRN Active ZITHROMAX 250 MG ORAL TABLET 2 po today, then 1 po q days 2-5 AZITHROMYCIN 91809847725 No Longer Active Miranda Farah APRN Active FLONASE 50 MCG/ACT NASAL SUSPENSION 1 spray each nostril twice daily until bottle empty FLUTICASONE PROPIONATE 78094210675 No Longer Active Tu Landeros MD Active COLACE 100 MG ORAL CAPSULE 1 po BID PRN Constipation DOCUSATE SODIUM 05475514446 Active Tu Landeros MD Active TRUERESULT BLOOD GLUCOSE w/Device KIT test blood sugar twice daily dx 250.00 BLOOD GLUCOSE MONITORING SUPPL 69946119469 No Longer Active Tu Landeros MD Active TRUEDRAW LANCING DEVICE Test twice a day dx 250.0 LANCET DEVICES 51344432928 No Longer Active Tu Landeros MD Active PREDNISONE 20 MG ORAL TABLET 2 tablets once daily for 2 days, then 1 tablet once daily for 2 days PREDNISONE 53541537726 No Longer Active Tu Landeros MD Active DICLOFENAC SODIUM 50 MG ORAL TABLET DELAYED RELEASE 1 tablet by mouth three times a day as needed DICLOFENAC SODIUM 06482631540 No Longer Active Fab Morales DO Active EMBRACE BLOOD GLUCOSE TEST IN VITRO STRIP test blood sugar twice daily DX 250.0 GLUCOSE BLOOD 53360797216 No Longer Active Tu Landeros MD Active TRUETEST TEST IN VITRO STRIP test blood sugar three times daily dx: 250.00 GLUCOSE BLOOD 77416349050 No Longer Active Suze VOGEL Active TRUERESULT BLOOD GLUCOSE w/Device KIT use to test blood sugar tid dx: 250.00 BLOOD GLUCOSE MONITORING SUPPL 38374999122 No Longer Active Suzebianca VOGEL Active ALIGN 4 MG ORAL CAPSULE 1 tid PROBIOTIC PRODUCT 68804230951 No Longer Active Shaun Sy MD Active CIPRO 500 MG ORAL TABLET 1 bid x 14 days start 09-28-13 CIPROFLOXACIN HCL 78450372118 No Longer Active Shaun Sy MD Active TRAMADOL HCL 50 MG ORAL TABLET 1-2 tablets every 6 hours as needed for pain TRAMADOL HCL 98678603326 Active Tu Landeros MD Active HYDROCODONE-ACETAMINOPHEN 5-325 MG ORAL TABLET 1 tab by mouth every 6 hours as needed for pain HYDROCODONE-ACETAMINOPHEN 48647803191 No Longer Active Tu Landeros MD Active OMEPRAZOLE 20 MG ORAL CAPSULE DELAYED RELEASE 1 po q a.m. OMEPRAZOLE 82652921832 Active Tu Landeros MD Active GABAPENTIN 100 MG ORAL CAPSULE 1 po bid GABAPENTIN 49147537696 No Longer Active Tu Landeros MD Active B-12 100 MCG ORAL TABLET Take one by mouth daily CYANOCOBALAMIN 16679315454 No Longer Active Tu Landeros MD Active BACTRIM DS 800-160 MG ORAL TABLET 1 bid x 14 day start 09-28-13 SULFAMETHOXAZOLE-TRIMETHOPRIM 59949475586 No Longer Active Tu Landeros MD Active CARVEDILOL 12.5 MG ORAL TABLET 1 po BID CARVEDILOL 70670781445 Active Tu Landeros MD Active FENOFIBRATE 145 MG ORAL TABLET 1 po qd FENOFIBRATE 34809681211 No Longer Active JASPREET Perez Active OMEPRAZOLE 20 MG ORAL TABLET DELAYED RELEASE 1 PO 30 MIN BEFORE 1ST MEAL 2010 OMEPRAZOLE 41463524347 No Longer Active JASPREET Perez Active SIMVASTATIN 40 MG ORAL TABLET Take one by mouth daily SIMVASTATIN 91641155660 No Longer Active JASPREET Perez Active VENLAFAXINE HCL 75 MG ORAL TABLET 1 po BID VENLAFAXINE HCL 74085028323 No Longer Active JASPREET Perez Active CIPRO 500 MG ORAL TABLET 1 tablet by mouth twice daily CIPROFLOXACIN HCL 54786970309 No Longer Active Tu Landeros MD Active VENLAFAXINE HCL 37.5 MG ORAL TABLET 1 po BID VENLAFAXINE HCL 79774178427 No Longer Active Suze NUNOA Active LAMISIL 250 MG ORAL TABLET 1 po qd TERBINAFINE HCL 12365939141 No Longer Active Tu Landeros MD Active LORTAB 5-500 MG ORAL TABLET 1/2 to 1 tablet by mouth every 4 hours as needed for pain HYDROCODONE-ACETAMINOPHEN 39217056976 No Longer Active Tu Landeros MD Active HYDROCODONE-ACETAMINOPHEN 5-500 MG ORAL TABLET take one po Q 4-6 hours prn HYDROCODONE-ACETAMINOPHEN 66473659083 No Longer Active Tu Landeros MD Active BACTRIM DS 800-160 MG ORAL TABLET 1 po BID x 7 days SULFAMETHOXAZOLE-TRIMETHOPRIM 65496601828 No Longer Active Tu Landeros MD Active VENLAFAXINE HCL 75 MG ORAL TABLET 1 po BID VENLAFAXINE HCL 27136745401 No Longer Active Elvira Cervantes MD PhD Active TRAMADOL HCL 50 MG ORAL TABLET 1 tablets every 6 hours as needed for pain TRAMADOL HCL 20553379772 No Longer Active Tu Landeros MD Active ACCU-CHED[place]son FASTCLIX LANCETS Use to check bloodsugar three times daily as needed LANCETS 38639709329 No Longer Active Tu Landeros MD Active ACCU-CHEDawson KEYONA PLUS IN VITRO STRIP Use for testing bloodsugars three times daily as needed GLUCOSE BLOOD 05403527407 No Longer Active Tu Landeros MD Active ACCU-CHEK KEYONA PLUS w/Device KIT Use for testing bloodsugars three times daily as needed BLOOD GLUCOSE MONITORING SUPPL 09336018968 No Longer Active Tu Landeros MD Active SPIRONOLACTONE 25 MG ORAL TABLET 0.5 tablet by mouth daily 09/09 SPIRONOLACTONE 70926779659 No Longer Active Tu Landeros MD Active ALPRAZOLAM 0.5 MG ORAL TABLET 1 tab every 6hrs as needed ALPRAZOLAM 89307379683 No Longer Active Tu Landeros MD Active AUGMENTIN 875-125 MG ORAL TABLET 1 tab by mouth twice daily with food AMOXICILLIN-POT CLAVULANATE 11027114068 No Longer Active Tu Landeros MD Active PREDNISONE 20 MG ORAL TABLET 2 tabs daily for 3 days, 1 tab daily for 3 days, 1/2 tab daily for 2 days PREDNISONE 06439568154 No Longer Active Tu Landeros MD Active XANAX 0.5 MG ORAL TABLET 1 tablet every 6 hrs prn ALPRAZOLAM 28345520589 No Longer Active Tu Landeros MD Active PREDNISONE 20 MG ORAL TABLET 2 tabs daily for 3 days, 1 tab daily for 3 days, 1/2 tab daily for 2 days PREDNISONE 36362652967 No Longer Active Tu Landeros MD Active TRIAMCINOLONE ACETONIDE 0.1 % EXTERNAL OINTMENT Apply to affected areas TID for up to 2 weeks TRIAMCINOLONE ACETONIDE 12751388934 No Longer Active Tu Landeros MD Active LORTAB 5-500 MG ORAL TABLET 1/2 to 1 tablet by mouth every 4 hours as needed for pain HYDROCODONE-ACETAMINOPHEN 31728467317 No Longer Active Tu Landeros MD Active MULTIVITAMINS TABS Take one by mouth daily MULTIPLE VITAMIN 03693031615 No Longer Active Tu Landeros MD Active MELATONIN 5 MG ORAL TABLET Take one by mouth daily MELATONIN 66033655834 No Longer Active Tu Landeros MD Active SOMA 350 MG ORAL TABLET 1 po q 6 hours prn spasm CARISOPRODOL 46127719485 No Longer Active Tu Landeros MD Active MECLIZINE HCL 25 MG ORAL TABLET CHEWABLE 1 four times a day as needed for dizziness MECLIZINE HCL 01299550575 No Longer Active Fab Morales DO Active ANGEL BREEZE 2 TEST IN VITRO DISK test tid prn GLUCOSE BLOOD 53710856769 No Longer Active Negra Scott RN Active REGLAN 10 MG ORAL TABLET 1 po TID PRN Nausea METOCLOPRAMIDE HCL 87142458370 No Longer Active Tu Landeros MD Active METFORMIN HCL 500 MG ORAL TABLET 1 PO BID METFORMIN HCL 69596059039 No Longer Active Tu Landeros MD Active AMBIEN 10 MG ORAL TABLET 1 tab by mouth at bedtime as needed for sleep 06/10 ZOLPIDEM TARTRATE 78784993092 No Longer Active Tu Landeros MD Active FLUOXETINE HCL 40 MG ORAL CAPSULE 1 po q day FLUOXETINE HCL 86530277668 No Longer Active Mayra Cusseta Active TRILIPIX 135 MG ORAL CAPSULE DELAYED RELEASE 1 po qd CHOLINE FENOFIBRATE 84936902419 No Longer Active Tu Landeros MD Active AMBIEN 10 MG ORAL TABLET 1 tab by mouth at bedtime as needed for sleep 06/10 AMBIEN 10 MG ORAL TABLET 255130 ZOLPIDEM TARTRATE Inactive METFORMIN HCL 500 MG ORAL TABLET 1 PO BID METFORMIN HCL 500 MG ORAL TABLET 138763 METFORMIN HCL Inactive REGLAN 10 MG ORAL TABLET 1 po TID PRN Nausea REGLAN 10 MG ORAL TABLET 922856 METOCLOPRAMIDE HCL Inactive MECLIZINE HCL 25 MG ORAL TABLET CHEWABLE 1 four times a day as needed for dizziness MECLIZINE HCL 25 MG ORAL TABLET CHEWABLE 214657 MECLIZINE HCL Inactive SOMA 350 MG ORAL TABLET 1 po q 6 hours prn spasm SOMA 350 MG ORAL TABLET 593557 CARISOPRODOL Inactive MELATONIN 5 MG ORAL TABLET Take one by mouth daily MELATONIN 5 MG ORAL TABLET 105011 MELATONIN Inactive MULTIVITAMINS TABS Take one by mouth daily MULTIVITAMINS TABS MULTIPLE VITAMIN Inactive LORTAB 5-500 MG ORAL TABLET 1/2 to 1 tablet by mouth every 4 hours as needed for pain LORTAB 5-500 MG ORAL TABLET HYDROCODONE- ACETAMINOPHEN Inactive XANAX 0.5 MG ORAL TABLET 1 tablet every 6 hrs prn XANAX 0.5 MG ORAL TABLET 117301 ALPRAZOLAM Inactive AUGMENTIN 875-125 MG ORAL TABLET 1 tab by mouth twice daily with food AUGMENTIN 875-125 MG ORAL TABLET 885671 AMOXICILLIN-POT CLAVULANATE Inactive ALPRAZOLAM 0.5 MG ORAL TABLET 1 tab every 6hrs as needed ALPRAZOLAM 0.5 MG ORAL TABLET 176189 ALPRAZOLAM Inactive SPIRONOLACTONE 25 MG ORAL TABLET 0.5 tablet by mouth daily 09/09 SPIRONOLACTONE 25 MG ORAL TABLET 845410 SPIRONOLACTONE Inactive ACCU-CHEK KEYONA PLUS w/Device KIT Use for testing bloodsugars three times daily as needed ACCU-CHEK KEYNOA PLUS w/Device KIT BLOOD GLUCOSE MONITORING SUPPL Inactive ACCU-CHEK KEYONA PLUS IN VITRO STRIP Use for testing bloodsugars three times daily as needed ACCU-CHEK KEYONA PLUS IN VITRO STRIP GLUCOSE BLOOD Inactive ACCU-CHEK FASTCLIX LANCETS Use to check bloodsugar three times daily as needed ACCU-CHEK FASTCLIX LANCETS 67873832734 LANCETS Inactive TRAMADOL HCL 50 MG ORAL TABLET 1 tablets every 6 hours as needed for pain TRAMADOL HCL 50 MG ORAL TABLET 710220 TRAMADOL HCL Inactive VENLAFAXINE HCL 75 MG ORAL TABLET 1 po BID VENLAFAXINE HCL 75 MG ORAL TABLET 639360 VENLAFAXINE HCL Inactive HYDROCODONE-ACETAMINOPHEN 5-500 MG ORAL TABLET take one po Q 4-6 hours prn HYDROCODONE-ACETAMINOPHEN 5-500 MG ORAL TABLET HYDROCODONE-ACETAMINOPHEN Inactive LORTAB 5-500 MG ORAL TABLET 1/2 to 1 tablet by mouth every 4 hours as needed for pain LORTAB 5-500 MG ORAL TABLET HYDROCODONE- ACETAMINOPHEN Inactive LAMISIL 250 MG ORAL TABLET 1 po qd LAMISIL 250 MG ORAL TABLET 730672 TERBINAFINE HCL Inactive VENLAFAXINE HCL 37.5 MG ORAL TABLET 1 po BID VENLAFAXINE HCL 37.5 MG ORAL TABLET 381973 VENLAFAXINE HCL Inactive CIPRO 500 MG ORAL TABLET 1 tablet by mouth twice daily CIPRO 500 MG ORAL TABLET 367910 CIPROFLOXACIN HCL Inactive VENLAFAXINE HCL 75 MG ORAL TABLET 1 po BID VENLAFAXINE HCL 75 MG ORAL TABLET 158503 VENLAFAXINE HCL Inactive SIMVASTATIN 40 MG ORAL TABLET Take one by mouth daily SIMVASTATIN 40 MG ORAL TABLET 474157 SIMVASTATIN Inactive OMEPRAZOLE 20 MG ORAL TABLET DELAYED RELEASE 1 PO 30 MIN BEFORE 1ST MEAL 2010 OMEPRAZOLE 20 MG ORAL TABLET DELAYED RELEASE 820406 OMEPRAZOLE Inactive FENOFIBRATE 145 MG ORAL TABLET 1 po qd FENOFIBRATE 145 MG ORAL TABLET 106618 FENOFIBRATE Inactive BACTRIM DS 800-160 MG ORAL TABLET 1 bid x 14 day start 09-28-13 BACTRIM DS 800-160 MG ORAL TABLET 064385 SULFAMETHOXAZOLE- TRIMETHOPRIM Inactive B-12 100 MCG ORAL TABLET Take one by mouth daily B-12 100 MCG ORAL TABLET CYANOCOBALAMIN Inactive GABAPENTIN 100 MG ORAL CAPSULE 1 po bid GABAPENTIN 100 MG ORAL CAPSULE 416383 GABAPENTIN Inactive HYDROCODONE-ACETAMINOPHEN 5-325 MG ORAL TABLET 1 tab by mouth every 6 hours as needed for pain HYDROCODONE-ACETAMINOPHEN 5-325 MG ORAL TABLET 671549 HYDROCODONE-ACETAMINOPHEN Inactive CIPRO 500 MG ORAL TABLET 1 bid x 14 days start 814 CIPRO 500 MG ORAL TABLET 292194 CIPROFLOXACIN HCL Inactive ALIGN 4 MG ORAL [...] SODIUM 50 MG ORAL TABLET DELAYED RELEASE 132953 DICLOFENAC SODIUM Inactive PREDNISONE 20 MG ORAL TABLET 2 tablets once daily for 2 days, then 1 tablet once daily for 2 days PREDNISONE 20 MG ORAL TABLET 689399 PREDNISONE Inactive TRUEDRAW LANCING DEVICE Test twice a day dx 250.0 TRUEDRAW LANCING DEVICE LANCET DEVICES Inactive TRUERESULT BLOOD GLUCOSE w/Device KIT test blood sugar twice daily dx 250.00 TRUERESULT BLOOD GLUCOSE w/Device KIT BLOOD GLUCOSE MONITORING SUPPL Inactive FLONASE 50 MCG/ACT NASAL SUSPENSION 1 spray each nostril twice daily until bottle empty FLONASE 50 MCG/ACT NASAL SUSPENSION 1338929 FLUTICASONE PROPIONATE Inactive VENTOLIN HFA 108 (90 Base) MCG/ACT INHALATION AEROSOL SOLUTION 1-2 puffs every 4 hours if needed for cough/congestion VENTOLIN HFA 108 (90 Base) MCG/ACT INHALATION AEROSOL SOLUTION ALBUTEROL SULFATE Inactive REQUIP 2 MG ORAL TABLET Take one tablet at bedtime prn REQUIP 2 MG ORAL TABLET 004927 ROPINIROLE HCL Inactive SUPER B COMPLEX/VITAMIN C ORAL TABLET 1 qd SUPER B COMPLEX/VITAMIN C ORAL TABLET 04364528357 B COMPLEX-C Inactive TRUEDRAW LANCING DEVICE test blood sugar twice daily dx: 250.00 TRUEDRAW LANCING DEVICE LANCET DEVICES Inactive TRUETEST TEST IN VITRO STRIP test blood sugar twice daily. DX 250.0 TRUETEST TEST IN VITRO STRIP GLUCOSE BLOOD Inactive CYCLOBENZAPRINE HCL 10 MG ORAL TABLET 1 po TID PRN Muscle Spasm CYCLOBENZAPRINE HCL 10 MG ORAL TABLET 294261 CYCLOBENZAPRINE HCL Inactive DICLOFENAC SODIUM 50 MG ORAL TABLET DELAYED RELEASE 1 po BID PRN Pain DICLOFENAC SODIUM 50 MG ORAL TABLET DELAYED RELEASE 141221 DICLOFENAC SODIUM Inactive DICLOFENAC SODIUM 75 MG ORAL TABLET DELAYED RELEASE 1 po BID PRN Pain DICLOFENAC SODIUM 75 MG ORAL TABLET DELAYED RELEASE 987859 DICLOFENAC SODIUM Inactive NASONEX 50 MCG/ACT NASAL SUSPENSION 2 actuations in each nostril q day 07/15 NASONEX 50 MCG/ACT NASAL SUSPENSION 1362135 MOMETASONE FUROATE Inactive GUAIFENESIN ER 600 MG ORAL TABLET EXTENDED RELEASE 12 HOUR 1 twice a day as needed for congestion GUAIFENESIN ER 600 MG ORAL TABLET EXTENDED RELEASE 12 HOUR GUAIFENESIN Inactive AZITHROMYCIN 250 MG ORAL TABLET 2 po qd x 1, then 1 po qd x 4 AZITHROMYCIN 250 MG ORAL TABLET 926205 AZITHROMYCIN Inactive PROMETHAZINE-CODEINE 6.25-10 MG/5ML ORAL SYRUP 5ml po q6hr PRN Cough PROMETHAZINE-CODEINE 6.25-10 MG/5ML ORAL SYRUP 905106 PROMETHAZINE-CODEINE Inactive TRILIPIX 135 MG ORAL CAPSULE DELAYED RELEASE 1 q hs TRILIPIX 135 MG ORAL CAPSULE DELAYED RELEASE 730606 CHOLINE FENOFIBRATE Inactive TRIAMCINOLONE ACETONIDE 0.1 % EXTERNAL OINTMENT Apply to affected areas TID for up to 2 weeks TRIAMCINOLONE ACETONIDE 0.1 % EXTERNAL OINTMENT 8248732 TRIAMCINOLONE ACETONIDE Inactive PREDNISONE 20 MG ORAL TABLET 2 tabs daily for 3 days, 1 tab daily for 3 days, 1/2 tab daily for 2 days PREDNISONE 20 MG ORAL TABLET 425989 PREDNISONE Inactive PREDNISONE 20 MG ORAL TABLET 2 tabs daily for 3 days, 1 tab daily for 3 days, 1/2 tab daily for 2 days PREDNISONE 20 MG ORAL TABLET 030360 PREDNISONE Inactive BACTRIM DS 800-160 MG ORAL TABLET 1 po BID x 7 days BACTRIM DS 800-160 MG ORAL TABLET 965313 SULFAMETHOXAZOLE-TRIMETHOPRIM Inactive ZITHROMAX 250 MG ORAL TABLET 2 po today, then 1 po q days 2-5 ZITHROMAX 250 MG ORAL TABLET 301800 AZITHROMYCIN Inactive PREDNISONE 20 MG ORAL TABLET 2 po qd x 5 days PREDNISONE 20 MG ORAL TABLET 446120 PREDNISONE Inactive Advance Directives Directive Description Start Date DISCUSSED WITH PATIENT -- NO DECISION MADE Immunizations Vaccine Administration Date Value Standard Description Seasonal influenza vaccine, injectable, containing preservative, for > 3 years old (Afluria, FluLaval, Fluzone, Fluvirin, Fluarix, Agriflu(>=18 yo)) Fluzone (>3 yrs.) [CUQ294] Influenza, seasonal, injectable influenza immunization (Flu Vax) has been administered 02/22/2012 influenza virus vaccine, unspecified formulation Seasonal influenza vaccine, injectable, containing preservative, for > 3 years old (Afluria, FluLaval, Fluzone, Fluvirin, Fluarix, Agriflu(>=18 yo)) Fluzone (>3 yrs.) [[id number]] Influenza, seasonal, injectable Vital Signs Date Name [...] Measured blood pressure, diastolic 63 mm[Hg] BP ca blood pressure, systolic 148 mm[Hg] BP sys [...] ... - Chemistry sodium, serum 141 mmol/L 512-403 9981/01/16 carbon dioxide, venous blood 28.3 mmol/L 21.0-32.0 [...] 6.7 % 4.3-6.0 cholesterol, serum 106 mg/dL 219-862 3972/01/16 triglyceride, serum, fasting 173 mg/dL 30-200 HDL [...] Magnesium - Chemistry sodium, serum 142 mmol/L 996-146 8859/07/16 carbon dioxide, venous blood 29.4 mmol/L 21.0-32.0 [...] Panel - Chemistry cholesterol, serum 170 mg/dL 284-410 1474/07/16 triglyceride, serum, fasting 266 mg/dL 30-200 HDL cholesterol, serum 42 mg/dL 32-60 LDL cholesterol, serum 75 mg/dL 0-130 Encounters Code Encounter Date Provider Facility CPT-34243 Level 4 Est. Patient 14:46:36 CDT Tu Landeros MD [facility] CPT-18744 Level 3 Est. Patient 10:28:05 CDT Tu Landeros MD [facility] CPT-26657 Level 3 Est. Patient 09:11:32 CDT Tu Landeros MD [facility] CPT-18312 Level 3 Est. Patient 10:13:19 HYDROTEL OPERATOR Lesli Kellogg APRN [facility] CPT-95039 Level 4 Est. Patient 13:42:02 HYDROTEL OPERATOR Tu Landeros MD [facility] CPT-56003 Level 3 Est. Patient 14:20:36 CDT Tu Landeros MD [facility] CPT-62631 Level 4 Est. Patient 14:28:34 CDT Tu Landeros MD [facility] CPT-97794 Level 3 Est. Patient 13:33:09 CDT Tu Landeros MD [facility] CPT-22390 Level 4 Est. Patient 14:29:21 CDT Tu Landeros MD [facility] CPT-61716 Level 4 Est. Patient 09:08:17 HYDROTEL OPERATOR Tu Landeros MD [facility] CPT-79314 Level 4 Est. Patient 14:40:19 CDT Tu Landeros MD [facility] CPT-21318 Level 4 Est. Patient 14:06:04 HYDROTEL OPERATOR Tu Landeros MD [facility] CPT-10025 Level 3 Est. Patient 14:05:18 HYDROTEL OPERATOR Tu Landeros MD [facility] CPT-52644 Level 3 Est. Patient 10:06:54 HYDROTEL OPERATOR Miranda Farah APRN [facility] CPT-25232 Level 4 Est. Patient 13:50:18 HYDROTEL OPERATOR Tu Landeros MD [facility] CPT-19829 Level 3 Est. Patient 10:30:04 CDT Tu Landeros MD [facility] CPT-69508 Level 4 Est. Patient 11:03:38 CDT Tu Landeros MD [facility] CPT-23471 Level 3 Est. Patient 10:20:44 CDT Fab Morales DO [facility] CPT-61274 Level 4 Est. Patient 14:38:57 CDT Tu Landeros MD [facility] CPT-26371 Level 4 Est. Patient 14:27:39 HYDROTEL OPERATOR Tu aLnderos MD [facility] CPT-95344 Level 4 Est. Patient 09:45:25 CDT Tu Landeros MD [facility] CPT-25368 Level 4 Est. Patient 09:05:20 HYDROTEL OPERATOR Tu Landeros MD [facility] CPT-77343 Level 4 Est. Patient 14:09:06 CDT Tu Landeros MD [facility] CPT-41864 Level 3 Est. Patient 13:36:54 CDT Tu Landeros MD [facility] CPT-80867 Level 3 Est. Patient 08:59:14 CDT Tu Landeros MD [facility] CPT-26046 Level 3 Est. Patient 13:48:35 CDT Fab Morales DO [facility] CPT-78772 Level 4 Est. Patient 10:05:48 CDT Tu Landeros MD [facility] CPT-36083 Level 3 Est. Patient 13:38:42 CDT Marek BANKS [facility] CPT-36881 Level 5 Est. Patient 08:08:39 CDT Jerrica FRANCIS [facility] CPT-47389 Level 4 Est. Patient 14:23:38 CDT Tu Landeros MD [facility] CPT-89650 Level 3 Est. Patient 11:44:04 CDT Tu Landeros MD [facility] CPT-99698 Level 3 Est. Patient 11:03:20 HYDROTEL OPERATOR Tu Landeros MD [facility] CPT-88122 Level 3 Est. Patient 11:03:14 HYDROTEL OPERATOR Tu Landeros MD [facility] CPT-60155 Level 3 Est. Patient 12:42:49 CDT Tu Landeros MD [facility] CPT-19355 Level 3 Est. Patient 11:52:06 CDT Tu Landeros MD [facility] CPT-57005 Level 3 Est. Patient 13:58:11 CDT Tu Landeros MD [facility] CPT-15848 Level 3 Est. Patient 17:50:07 CDT Fab Morales DO [facility] CPT-75077 Level 3 Est. Patient 12:06:29 CDT Elvira Cervantes MD PhD [facility] [place] CPT-47339 Level 3 Est. Patient 15:50:32 CDT Tu Landeros MD [facility] [place] CPT-23996 Level 4 Est. Patient 16:08:29 CDT Tu Landeros MD [facility] [place] CPT-79329 Level 3 Est. Patient 16:04:19 CDT Tu Landeros MD [facility] [place] CPT-08190 Level 3 Est. Patient 11:22:30 HYDROTEL OPERATOR Tu Landeros MD [facility] [place] CPT-99208 Level 4 Est. Patient 16:24:02 HYDROTEL OPERATOR Tu Landeros MD [facility] [place] CPT-08218 Level 3 Est. Patient 17:21:23 HYDROTEL OPERATOR Tu Landeros MD [facility] [place] Procedures Code Procedure Name Date Entry Date Standard Description CPT-G0439 Subsequent Annual Wellness Exam 14:46:36 CDT CPT-98788 Shoulder, right, comp min 2V - XRAY USE ONLY 13:50:22 CDT CPT-G0009 Administration of Pneumococcal Vaccine 15:08:26 CDT CPT-60455 Prevnar 13 Intramuscular Suspension 15:08:26 CDT 10/08 CPT-G0439 Subsequent Annual Wellness Exam 14:29:22 CDT CPT-05710 Venipuncture Draw Fee 13:15:35 CDT CPT-63001 Magnesium - LAB USE ONLY 11:14:20 HYDROTEL OPERATOR CPT-72973 Lipid - LAB USE ONLY 11:14:20 HYDROTEL OPERATOR CPT-92658 HGBA1C - LAB USE ONLY 11:14:20 HYDROTEL OPERATOR CPT-38283 CMP - LAB USE ONLY 11:14:19 HYDROTEL OPERATOR CPT-71849 CBC - LAB USE ONLY 11:14:19 HYDROTEL OPERATOR CPT-39977 Venipuncture Draw Fee 11:14:18 HYDROTEL OPERATOR CPT-81142 First Vx - Ix admin for Medicare patients 16:46:52 CDT CPT-83107 Fluzone Preservative Free Intramuscular Suspension 16:46 :51 CDT CPT-35489 CBC - LAB USE ONLY 17:14:46 CDT CPT-62273 HGBA1C - LAB USE ONLY 17:14:46 CDT CPT-95873 Venipuncture Draw Fee 17:14:46 CDT CPT-G0438 Initial Annual Wellness Exam 14:13:04 CDT CPT-12159 Breathing Tx 10:06:54 HYDROTEL OPERATOR CPT-95724 Postop F/U Visit 10:02:45 CDT CPT-LR Lesion Removal 09:02:56 CDT CPT-JTINJ Asp/Joint Injection 15:51:27 HYDROTEL OPERATOR CPT-OV Office Visit 15:52:02 HYDROTEL OPERATOR CPT-OV Office Visit 15:45:11 CDT CPT-000 Give Zostavax 14:09:06 CDT CPT-37383 Administration single or combination vaccine inc oral 15 :19:04 CDT CPT-78874 Zoster Vaccine (Zostavax) 15:19:04 CDT CPT-78654 Administration single or combination vaccine inc oral 20 :51:03 CDT CPT-75223 Influenza split virus > age 3 20:51:03 CDT CPT-95023 No Charge Offi Visit 14:52:03 CDT CPT-OV Office Visit 14:57:43 CDT CPT-OV Office Visit 15:22:32 CDT CPT-30825 Administration single or combination vaccine inc oral 11 :33:15 CDT CPT-60284 Influenza split virus > age 3 11:33:15 CDT
--- OUTSIDE RECORDS SUMMARY | 2018-04-25 12:03 | XMS REPORT | Clinical Summary ---
Author Author Admin, SACHI Organization [employer] Address Unknown Phone Unavailable Allergies, Adverse Reactions, [...] site unspecified KNEE PAIN 719.46 Resolved Tu Ladneros MD Pain in joint involving lower leg [...] unspecified Leg pain, left 729.5 Resolved Tu Landeors MD Pain in limb Vision impairment, both [...] magnesium metabolism URI 465.9 Inactive Lesli Kellogg VIDEO JOURNALIST Acute upper respiratory infections of unspecified site [...] 1 GM ORAL CAPSULE 1 po qd [id number] ETHYL ESTERS 04271181752 Active Tu Landeros MD Active TRILIPIX 135 MG ORAL CAPSULE DELAYED RELEASE 1 q hs CHOLINE FENOFIBRATE 21790922096 No Longer Active Cynthia NUNOA Active TRIAMCINOLONE ACETONIDE 0.1 % EXTERNAL CREAM Apply to affected area TID for up to 2 weeks TRIAMCINOLONE ACETONIDE 30368902216 Active Tu Landeros MD Active INDOMETHACIN 50 MG ORAL CAPSULE 1 po TID PRN Pain INDOMETHACIN 28482315639 Active Tu Landeros MD Active PROMETHAZINE-CODEINE 6.25-10 MG/5ML ORAL SYRUP 5ml po q6hr PRN Cough PROMETHAZINE-CODEINE 42797721535 No Longer Active Tu Landeros MD Active AZITHROMYCIN 250 MG ORAL TABLET 2 po qd x 1, then 1 po qd x 4 AZITHROMYCIN 81401792221 No Longer Active Tu Landeros MD Active GUAIFENESIN ER 600 MG ORAL TABLET EXTENDED RELEASE 12 HOUR 1 twice a day as needed for congestion GUAIFENESIN 67056361486 No Longer Active Tu Landeros MD Active PREDNISONE 20 MG ORAL TABLET 2 po qd x 5 days PREDNISONE 31950760435 No Longer Active Tu Landeros MD Active FLUTICASONE PROPIONATE 50 MCG/ACT NASAL SUSPENSION 2 sprays/nostril qd PRN Congestion/Allergies FLUTICASONE PROPIONATE 93626635637 Active Tu Landeros MD Active NASONEX 50 MCG/ACT NASAL SUSPENSION 2 actuations in each nostril q day 07/15 MOMETASONE FUROATE 60867888541 No Longer Active Tu Landeros MD Active MAGNESIUM OXIDE 400 MG ORAL TABLET 1 po BID MAGNESIUM OXIDE 29873123686 Active Tu Landeros MD Active SIMVASTATIN 20 MG ORAL TABLET 0.5 po qHS SIMVASTATIN 79876013929 Active Tu Landeros MD Active DICLOFENAC SODIUM 75 MG ORAL TABLET DELAYED RELEASE 1 po BID PRN Pain DICLOFENAC SODIUM 87457954972 No Longer Active Tu Landeros MD Active GABAPENTIN 100 MG ORAL CAPSULE 1 po TID GABAPENTIN 66611323520 Active Tu Landeros MD Active DICLOFENAC SODIUM 50 MG ORAL TABLET DELAYED RELEASE 1 po BID PRN Pain DICLOFENAC SODIUM 52520262692 No Longer Active Tu Landeros MD Active CYCLOBENZAPRINE HCL 10 MG ORAL TABLET 1 po TID PRN Muscle Spasm CYCLOBENZAPRINE HCL 48222419109 No Longer Active Tu Landeros MD Active INVOKANA 100 MG ORAL TABLET 1 po qd CANAGLIFLOZIN 73508467062 Active José Luis Becerra MD Active GLIPIZIDE 5 MG ORAL TABLET 1 po qd GLIPIZIDE 27560178135 No Longer Active Tu Landeros MD Active VENLAFAXINE HCL 75 MG ORAL TABLET 1 po BID VENLAFAXINE HCL 14470166189 Active Tu Landeros MD Active GLIMEPIRIDE 1 MG ORAL TABLET 1 po qd GLIMEPIRIDE 81836311987 No Longer Active Tu Landeros MD Active TRUE METRIX BLOOD GLUCOSE TEST IN VITRO STRIP Test blood sugar BID Dx: E11.9 GLUCOSE BLOOD 71169543827 Active Tu Landeros MD Active TRUE METRIX AIR GLUCOSE METER w/Device KIT Test blood glucose BID Dx: E11.9 BLOOD GLUCOSE MONITORING SUPPL 39905568039 Active Tu Landeros MD Active TRUETEST TEST IN VITRO STRIP test blood sugar twice daily. DX 250.0 GLUCOSE BLOOD 77664189785 No Longer Active Mirna Stanley LPN Active TRUEDRAW LANCING DEVICE test blood sugar twice daily dx: 250.00 LANCET DEVICES 29999766734 No Longer Active Mirna Stanley LPN Active ENALAPRIL MALEATE 20 MG ORAL TABLET 2 po qd ENALAPRIL MALEATE 07070595433 Active Tu Landeros MD Active SUPER B COMPLEX/VITAMIN C ORAL TABLET 1 qd B COMPLEX- C 97630203954 No Longer Active Tu Landeros MD Active ASPIRIN EC 81 MG ORAL TABLET DELAYED RELEASE 1 po qd ASPIRIN 12987333122 Active Tu Landeros MD Active GLUCOSAMINE 500 MG TABS 2 po qd GLUCOSAMINE Active Tu Landeros MD Active FISH OIL 1000 MG ORAL CAPSULE 1 po qd OMEGA-3 FATTY ACIDS 45042995636 Active Tu Landeros MD Active METFORMIN HCL 1000 MG ORAL TABLET 1 po BID METFORMIN HCL 50910900129 Active Tu Landeros MD Active KLOR-CON 10 10 MEQ ORAL TABLET EXTENDED RELEASE 2 po qd POTASSIUM CHLORIDE 87696239020 Active Tu Landeros MD Active FUROSEMIDE 40 MG ORAL TABLET 1 po qd FUROSEMIDE 60809564995 Active Tu Landeros MD Active REQUIP 2 MG ORAL TABLET 1 po qHS PRN Restless legs ROPINIROLE HCL 12278491782 Active Tu Landeros MD Active REQUIP 2 MG ORAL TABLET Take one tablet at bedtime prn ROPINIROLE HCL 16563786447 No Longer Active Tu Landeros MD Active VENTOLIN HFA 108 (90 Base) MCG/ACT INHALATION AEROSOL SOLUTION 1-2 puffs every 4 hours if needed for cough/congestion ALBUTEROL SULFATE 35786332719 No Longer Active Ambika Aden APRN Active ZITHROMAX 250 MG ORAL TABLET 2 po today, then 1 po q days 2-5 AZITHROMYCIN 63948222689 No Longer Active Miranda Farah APRN Active FLONASE 50 MCG/ACT NASAL SUSPENSION 1 spray each nostril twice daily until bottle empty FLUTICASONE PROPIONATE 89493279171 No Longer Active Tu Landeros MD Active COLACE 100 MG ORAL CAPSULE 1 po BID PRN Constipation DOCUSATE SODIUM 79386823752 Active Tu Landeros MD Active TRUERESULT BLOOD GLUCOSE w/Device KIT test blood sugar twice daily dx 250.00 BLOOD GLUCOSE MONITORING SUPPL 16999663274 No Longer Active Tu Landeros MD Active TRUEDRAW LANCING DEVICE Test twice a day dx 250.0 LANCET DEVICES 76819497868 No Longer Active Tu Landeros MD Active PREDNISONE 20 MG ORAL TABLET 2 tablets once daily for 2 days, then 1 tablet once daily for 2 days PREDNISONE 65857757817 No Longer Active Tu Landeros MD Active DICLOFENAC SODIUM 50 MG ORAL TABLET DELAYED RELEASE 1 tablet by mouth three times a day as needed DICLOFENAC SODIUM 98777023793 No Longer Active Fab Morales DO Active EMBRACE BLOOD GLUCOSE TEST IN VITRO STRIP test blood sugar twice daily DX 250.0 GLUCOSE BLOOD 38156648790 No Longer Active Tu Landeros MD Active TRUETEST TEST IN VITRO STRIP test blood sugar three times daily dx: 250.00 GLUCOSE BLOOD 16729191450 No Longer Active Suze VOGEL Active TRUERESULT BLOOD GLUCOSE w/Device KIT use to test blood sugar tid dx: 250.00 BLOOD GLUCOSE MONITORING SUPPL 95920489223 No Longer Active Suzebianca VOGEL Active ALIGN 4 MG ORAL CAPSULE 1 tid PROBIOTIC PRODUCT 63044981575 No Longer Active Shaun Sy MD Active CIPRO 500 MG ORAL TABLET 1 bid x 14 days start 09-28-13 CIPROFLOXACIN HCL 41612304320 No Longer Active Shaun Sy MD Active TRAMADOL HCL 50 MG ORAL TABLET 1-2 tablets every 6 hours as needed for pain TRAMADOL HCL 32803970351 Active Tu Landeros MD Active HYDROCODONE-ACETAMINOPHEN 5-325 MG ORAL TABLET 1 tab by mouth every 6 hours as needed for pain HYDROCODONE-ACETAMINOPHEN 29842929041 No Longer Active Tu Landeros MD Active OMEPRAZOLE 20 MG ORAL CAPSULE DELAYED RELEASE 1 po q a.m. OMEPRAZOLE 35149858347 Active Tu Landeros MD Active GABAPENTIN 100 MG ORAL CAPSULE 1 po bid GABAPENTIN 68221218004 No Longer Active Tu Landeros MD Active B-12 100 MCG ORAL TABLET Take one by mouth daily CYANOCOBALAMIN 32436428133 No Longer Active Tu Landeros MD Active BACTRIM DS 800-160 MG ORAL TABLET 1 bid x 14 day start 09-28-13 SULFAMETHOXAZOLE-TRIMETHOPRIM 80960684876 No Longer Active Tu Landeros MD Active CARVEDILOL 12.5 MG ORAL TABLET 1 po BID CARVEDILOL 96487857812 Active Tu Landeros MD Active FENOFIBRATE 145 MG ORAL TABLET 1 po qd FENOFIBRATE 70002700670 No Longer Active JASPREET Perez Active OMEPRAZOLE 20 MG ORAL TABLET DELAYED RELEASE 1 PO 30 MIN BEFORE 1ST MEAL 2010 OMEPRAZOLE 72025010692 No Longer Active JASPREET Perez Active SIMVASTATIN 40 MG ORAL TABLET Take one by mouth daily SIMVASTATIN 21935980275 No Longer Active JASPREET Perez Active VENLAFAXINE HCL 75 MG ORAL TABLET 1 po BID VENLAFAXINE HCL 26851646769 No Longer Active JASPREET Perez Active CIPRO 500 MG ORAL TABLET 1 tablet by mouth twice daily CIPROFLOXACIN HCL 93458180157 No Longer Active Tu Landeros MD Active VENLAFAXINE HCL 37.5 MG ORAL TABLET 1 po BID VENLAFAXINE HCL 58711664454 No Longer Active Suze NUNOA Active LAMISIL 250 MG ORAL TABLET 1 po qd TERBINAFINE HCL 50016547972 No Longer Active Tu Landeros MD Active LORTAB 5-500 MG ORAL TABLET 1/2 to 1 tablet by mouth every 4 hours as needed for pain HYDROCODONE-ACETAMINOPHEN 85342999814 No Longer Active Tu Landeros MD Active HYDROCODONE-ACETAMINOPHEN 5-500 MG ORAL TABLET take one po Q 4-6 hours prn HYDROCODONE-ACETAMINOPHEN 60146767709 No Longer Active Tu Landeros MD Active BACTRIM DS 800-160 MG ORAL TABLET 1 po BID x 7 days SULFAMETHOXAZOLE-TRIMETHOPRIM 71027107484 No Longer Active Tu Landeros MD Active VENLAFAXINE HCL 75 MG ORAL TABLET 1 po BID VENLAFAXINE HCL 13905392243 No Longer Active Elvira Cervantes MD PhD Active TRAMADOL HCL 50 MG ORAL TABLET 1 tablets every 6 hours as needed for pain TRAMADOL HCL 28504340719 No Longer Active Tu Landeros MD Active ACCU-CHED[place]son FASTCLIX LANCETS Use to check bloodsugar three times daily as needed LANCETS 37494322806 No Longer Active Tu Landeros MD Active ACCU-CHEDawson KEYONA PLUS IN VITRO STRIP Use for testing bloodsugars three times daily as needed GLUCOSE BLOOD 50061685421 No Longer Active Tu Landeros MD Active ACCU-CHEK KEYONA PLUS w/Device KIT Use for testing bloodsugars three times daily as needed BLOOD GLUCOSE MONITORING SUPPL 22061837708 No Longer Active Tu Landeros MD Active SPIRONOLACTONE 25 MG ORAL TABLET 0.5 tablet by mouth daily 09/09 SPIRONOLACTONE 38468445217 No Longer Active Tu Landeros MD Active ALPRAZOLAM 0.5 MG ORAL TABLET 1 tab every 6hrs as needed ALPRAZOLAM 05854802313 No Longer Active Tu Landeros MD Active AUGMENTIN 875-125 MG ORAL TABLET 1 tab by mouth twice daily with food AMOXICILLIN-POT CLAVULANATE 96516470354 No Longer Active Tu Landeros MD Active PREDNISONE 20 MG ORAL TABLET 2 tabs daily for 3 days, 1 tab daily for 3 days, 1/2 tab daily for 2 days PREDNISONE 87953164810 No Longer Active Tu Landreos MD Active XANAX 0.5 MG ORAL TABLET 1 tablet every 6 hrs prn ALPRAZOLAM 84575788991 No Longer Active Tu Landeros MD Active PREDNISONE 20 MG ORAL TABLET 2 tabs daily for 3 days, 1 tab daily for 3 days, 1/2 tab daily for 2 days PREDNISONE 54589973788 No Longer Active Tu Landeros MD Active TRIAMCINOLONE ACETONIDE 0.1 % EXTERNAL OINTMENT Apply to affected areas TID for up to 2 weeks TRIAMCINOLONE ACETONIDE 26644181429 No Longer Active Tu Landeros MD Active LORTAB 5-500 MG ORAL TABLET 1/2 to 1 tablet by mouth every 4 hours as needed for pain HYDROCODONE-ACETAMINOPHEN 26492769809 No Longer Active Tu Landeros MD Active MULTIVITAMINS TABS Take one by mouth daily MULTIPLE VITAMIN 02439335723 No Longer Active Tu Landeros MD Active MELATONIN 5 MG ORAL TABLET Take one by mouth daily MELATONIN 33346430268 No Longer Active Tu Landeros MD Active SOMA 350 MG ORAL TABLET 1 po q 6 hours prn spasm CARISOPRODOL 31155770597 No Longer Active Tu Landeros MD Active MECLIZINE HCL 25 MG ORAL TABLET CHEWABLE 1 four times a day as needed for dizziness MECLIZINE HCL 28340924794 No Longer Active Fab Morales DO Active ANGEL BREEZE 2 TEST IN VITRO DISK test tid prn GLUCOSE BLOOD 49822484004 No Longer Active Negra Scott RN Active REGLAN 10 MG ORAL TABLET 1 po TID PRN Nausea METOCLOPRAMIDE HCL 83114662867 No Longer Active Tu Landeros MD Active METFORMIN HCL 500 MG ORAL TABLET 1 PO BID METFORMIN HCL 05914380736 No Longer Active Tu Landeros MD Active AMBIEN 10 MG ORAL TABLET 1 tab by mouth at bedtime as needed for sleep 06/10 ZOLPIDEM TARTRATE 63701888454 No Longer Active Tu Landeros MD Active FLUOXETINE HCL 40 MG ORAL CAPSULE 1 po q day FLUOXETINE HCL 00968514845 No Longer Active Mayra [place] Active TRILIPIX 135 MG ORAL CAPSULE DELAYED RELEASE 1 po qd CHOLINE FENOFIBRATE 41092745629 No Longer Active Tu Landeros MD Active AMBIEN 10 MG ORAL TABLET 1 tab by mouth at bedtime as needed for sleep 06/10 AMBIEN 10 MG ORAL TABLET 499446 ZOLPIDEM TARTRATE Inactive METFORMIN HCL 500 MG ORAL TABLET 1 PO BID METFORMIN HCL 500 MG ORAL TABLET 438969 METFORMIN HCL Inactive REGLAN 10 MG ORAL TABLET 1 po TID PRN Nausea REGLAN 10 MG ORAL TABLET 814259 METOCLOPRAMIDE HCL Inactive MECLIZINE HCL 25 MG ORAL TABLET CHEWABLE 1 four times a day as needed for dizziness MECLIZINE HCL 25 MG ORAL TABLET CHEWABLE 033947 MECLIZINE HCL Inactive SOMA 350 MG ORAL TABLET 1 po q 6 hours prn spasm SOMA 350 MG ORAL TABLET 415736 CARISOPRODOL Inactive MELATONIN 5 MG ORAL TABLET Take one by mouth daily MELATONIN 5 MG ORAL TABLET 079779 MELATONIN Inactive MULTIVITAMINS TABS Take one by mouth daily MULTIVITAMINS TABS MULTIPLE VITAMIN Inactive LORTAB 5-500 MG ORAL TABLET 1/2 to 1 tablet by mouth every 4 hours as needed for pain LORTAB 5-500 MG ORAL TABLET HYDROCODONE- ACETAMINOPHEN Inactive XANAX 0.5 MG ORAL TABLET 1 tablet every 6 hrs prn XANAX 0.5 MG ORAL TABLET 056658 ALPRAZOLAM Inactive AUGMENTIN 875-125 MG ORAL TABLET 1 tab by mouth twice daily with food AUGMENTIN 875-125 MG ORAL TABLET 231871 AMOXICILLIN-POT CLAVULANATE Inactive ALPRAZOLAM 0.5 MG ORAL TABLET 1 tab every 6hrs as needed ALPRAZOLAM 0.5 MG ORAL TABLET 056420 ALPRAZOLAM Inactive SPIRONOLACTONE 25 MG ORAL TABLET 0.5 tablet by mouth daily 09/09 SPIRONOLACTONE 25 MG ORAL TABLET 975721 SPIRONOLACTONE Inactive ACCU-CHEK KEYONA PLUS w/Device KIT [...] times daily as needed ACCU-CHEK FASTCLIX LANCETS 31400166615 LANCETS Inactive TRAMADOL HCL 50 MG ORAL TABLET 1 tablets every 6 hours as needed for pain TRAMADOL HCL 50 MG ORAL TABLET 923241 TRAMADOL HCL Inactive VENLAFAXINE HCL 75 MG ORAL TABLET 1 po BID VENLAFAXINE HCL 75 MG ORAL TABLET 748591 VENLAFAXINE HCL Inactive HYDROCODONE-ACETAMINOPHEN 5-500 MG ORAL TABLET take one po Q 4-6 hours prn HYDROCODONE-ACETAMINOPHEN 5-500 MG ORAL TABLET HYDROCODONE-ACETAMINOPHEN Inactive LORTAB 5-500 MG ORAL TABLET 1/2 to 1 tablet by mouth every 4 hours as needed for pain LORTAB 5-500 MG ORAL TABLET HYDROCODONE- ACETAMINOPHEN Inactive LAMISIL 250 MG ORAL TABLET 1 po qd LAMISIL 250 MG ORAL TABLET 531289 TERBINAFINE HCL Inactive VENLAFAXINE HCL 37.5 MG ORAL TABLET 1 po BID VENLAFAXINE HCL 37.5 MG ORAL TABLET 567148 VENLAFAXINE HCL Inactive CIPRO 500 MG ORAL TABLET 1 tablet by mouth twice daily CIPRO 500 MG ORAL TABLET 560224 CIPROFLOXACIN HCL Inactive VENLAFAXINE HCL 75 MG ORAL TABLET 1 po BID VENLAFAXINE HCL 75 MG ORAL TABLET 622003 VENLAFAXINE HCL Inactive SIMVASTATIN 40 MG ORAL TABLET Take one by mouth daily SIMVASTATIN 40 MG ORAL TABLET 185502 SIMVASTATIN Inactive OMEPRAZOLE 20 MG ORAL TABLET DELAYED RELEASE 1 PO 30 MIN BEFORE 1ST MEAL 2010 OMEPRAZOLE 20 MG ORAL TABLET DELAYED RELEASE 465179 OMEPRAZOLE Inactive FENOFIBRATE 145 MG ORAL TABLET 1 po qd FENOFIBRATE 145 MG ORAL TABLET 507960 FENOFIBRATE Inactive BACTRIM DS 800-160 MG ORAL TABLET 1 bid x 14 day start 09-28-13 BACTRIM DS 800-160 MG ORAL TABLET 400151 SULFAMETHOXAZOLE- TRIMETHOPRIM Inactive B-12 100 MCG ORAL TABLET Take one by mouth daily B-12 100 MCG ORAL TABLET CYANOCOBALAMIN Inactive GABAPENTIN 100 MG ORAL CAPSULE 1 po bid GABAPENTIN 100 MG ORAL CAPSULE 414712 GABAPENTIN Inactive HYDROCODONE-ACETAMINOPHEN 5-325 MG ORAL TABLET 1 tab by mouth every 6 hours as needed for pain HYDROCODONE-ACETAMINOPHEN 5-325 MG ORAL TABLET 508821 HYDROCODONE-ACETAMINOPHEN Inactive CIPRO 500 MG ORAL TABLET 1 bid x 14 days start 814 CIPRO 500 MG ORAL TABLET 531731 CIPROFLOXACIN HCL Inactive ALIGN 4 MG ORAL [...] SODIUM 50 MG ORAL TABLET DELAYED RELEASE 773737 DICLOFENAC SODIUM Inactive PREDNISONE 20 MG ORAL TABLET 2 tablets once daily for 2 days, then 1 tablet once daily for 2 days PREDNISONE 20 MG ORAL TABLET 555684 PREDNISONE Inactive TRUEDRAW LANCING DEVICE Test twice a day dx 250.0 TRUEDRAW LANCING DEVICE LANCET DEVICES Inactive TRUERESULT BLOOD GLUCOSE w/Device KIT test blood sugar twice daily dx 250.00 TRUERESULT BLOOD GLUCOSE w/Device KIT BLOOD GLUCOSE MONITORING SUPPL Inactive FLONASE 50 MCG/ACT NASAL SUSPENSION 1 spray each nostril twice daily until bottle empty FLONASE 50 MCG/ACT NASAL SUSPENSION 5324219 FLUTICASONE PROPIONATE Inactive VENTOLIN HFA 108 (90 Base) MCG/ACT INHALATION AEROSOL SOLUTION 1-2 puffs every 4 hours if needed for cough/congestion VENTOLIN HFA 108 (90 Base) MCG/ACT INHALATION AEROSOL SOLUTION ALBUTEROL SULFATE Inactive REQUIP 2 MG ORAL TABLET Take one tablet at bedtime prn REQUIP 2 MG ORAL TABLET 540368 ROPINIROLE HCL Inactive SUPER B COMPLEX/VITAMIN C ORAL TABLET 1 qd SUPER B COMPLEX/VITAMIN C ORAL TABLET 29687164892 B COMPLEX-C Inactive TRUEDRAW LANCING DEVICE test blood sugar twice daily dx: 250.00 TRUEDRAW LANCING DEVICE LANCET DEVICES Inactive TRUETEST TEST IN VITRO STRIP test blood sugar twice daily. DX 250.0 TRUETEST TEST IN VITRO STRIP GLUCOSE BLOOD Inactive CYCLOBENZAPRINE HCL 10 MG ORAL TABLET 1 po TID PRN Muscle Spasm CYCLOBENZAPRINE HCL 10 MG ORAL TABLET 935640 CYCLOBENZAPRINE HCL Inactive DICLOFENAC SODIUM 50 MG ORAL TABLET DELAYED RELEASE 1 po BID PRN Pain DICLOFENAC SODIUM 50 MG ORAL TABLET DELAYED RELEASE 431765 DICLOFENAC SODIUM Inactive DICLOFENAC SODIUM 75 MG ORAL TABLET DELAYED RELEASE 1 po BID PRN Pain DICLOFENAC SODIUM 75 MG ORAL TABLET DELAYED RELEASE 614705 DICLOFENAC SODIUM Inactive NASONEX 50 MCG/ACT NASAL SUSPENSION 2 actuations in each nostril q day 07/15 NASONEX 50 MCG/ACT NASAL SUSPENSION 1735187 MOMETASONE FUROATE Inactive GUAIFENESIN ER 600 MG ORAL TABLET EXTENDED RELEASE 12 HOUR 1 twice a day as needed for congestion GUAIFENESIN ER 600 MG ORAL TABLET EXTENDED RELEASE 12 HOUR GUAIFENESIN Inactive AZITHROMYCIN 250 MG ORAL TABLET 2 po qd x 1, then 1 po qd x 4 AZITHROMYCIN 250 MG ORAL TABLET 499811 AZITHROMYCIN Inactive PROMETHAZINE-CODEINE 6.25-10 MG/5ML ORAL SYRUP 5ml po q6hr PRN Cough PROMETHAZINE-CODEINE 6.25-10 MG/5ML ORAL SYRUP 738594 PROMETHAZINE-CODEINE Inactive TRILIPIX 135 MG ORAL CAPSULE DELAYED RELEASE 1 q hs TRILIPIX 135 MG ORAL CAPSULE DELAYED RELEASE 002016 CHOLINE FENOFIBRATE Inactive TRIAMCINOLONE ACETONIDE 0.1 % EXTERNAL OINTMENT Apply to affected areas TID for up to 2 weeks TRIAMCINOLONE ACETONIDE 0.1 % EXTERNAL OINTMENT 0101221 TRIAMCINOLONE ACETONIDE Inactive PREDNISONE 20 MG ORAL TABLET 2 tabs daily for 3 days, 1 tab daily for 3 days, 1/2 tab daily for 2 days PREDNISONE 20 MG ORAL TABLET 478957 PREDNISONE Inactive PREDNISONE 20 MG ORAL TABLET 2 tabs daily for 3 days, 1 tab daily for 3 days, 1/2 tab daily for 2 days PREDNISONE 20 MG ORAL TABLET 450762 PREDNISONE Inactive BACTRIM DS 800-160 MG ORAL TABLET 1 po BID x 7 days BACTRIM DS 800-160 MG ORAL TABLET 710686 SULFAMETHOXAZOLE-TRIMETHOPRIM Inactive ZITHROMAX 250 MG ORAL TABLET 2 po today, then 1 po q days 2-5 ZITHROMAX 250 MG ORAL TABLET 581276 AZITHROMYCIN Inactive PREDNISONE 20 MG ORAL TABLET 2 po qd x 5 days PREDNISONE 20 MG ORAL TABLET 244423 PREDNISONE Inactive Advance Directives Directive Description Start Date DISCUSSED WITH PATIENT -- NO DECISION MADE Immunizations Vaccine Administration Date Value Standard Description Seasonal influenza vaccine, injectable, containing preservative, for > 3 years old (Afluria, FluLaval, Fluzone, Fluvirin, Fluarix, Agriflu(>=18 yo)) Fluzone (>3 yrs.) [[id number]] Influenza, seasonal, injectable influenza immunization (Flu Vax) has been administered 02/22/2012 influenza virus vaccine, unspecified formulation Seasonal influenza vaccine, injectable, containing preservative, for > 3 years old (Afluria, FluLaval, Fluzone, Fluvirin, Fluarix, Agriflu(>=18 yo)) Fluzone (>3 yrs.) [[id number]] Influenza, seasonal, injectable Vital Signs Date Name [...] ... - Chemistry sodium, serum 141 mmol/L 108-709 6453/01/16 carbon dioxide, venous blood 28.3 mmol/L 21.0-32.0 [...] 6.7 % 4.3-6.0 cholesterol, serum 106 mg/dL 196-123 5881/01/16 triglyceride, serum, fasting 173 mg/dL 30-200 HDL [...] Magnesium - Chemistry sodium, serum 142 mmol/L 285-764 7834/07/16 carbon dioxide, venous blood 29.4 mmol/L 21.0-32.0 [...] Panel - Chemistry cholesterol, serum 170 mg/dL 054-777 6734/07/16 triglyceride, serum, fasting 266 mg/dL 30-200 HDL cholesterol, serum 42 mg/dL 32-60 LDL cholesterol, serum 75 mg/dL 0-130 Encounters Code Encounter Date Provider Facility CPT-21738 Level 4 Est. Patient 14:46:36 CDT Tu Landeros MD [facility] CPT-36743 Level 3 Est. Patient 10:28:05 CDT Tu Landeros MD [facility] CPT-86659 Level 3 Est. Patient 09:11:32 CDT Tu Landeros MD [facility] CPT-84158 Level 3 Est. Patient 10:13:19 SUPERVISOR SLATE SPLITT[employer] Lesli Kellogg APRN [facility] CPT-56771 Level 4 Est. Patient 13:42:02 SUPERVISOR SLATE SPLITTING Tu Landeros MD [facility] CPT-60400 Level 3 Est. Patient 14:20:36 CDT Tu Landeros MD [facility] CPT-95086 Level 4 Est. Patient 14:28:34 CDT Tu Landeros MD [facility] CPT-33783 Level 3 Est. Patient 13:33:09 CDT Tu Landeros MD [facility] CPT-46517 Level 4 Est. Patient 14:29:21 CDT Tu Landeros MD [facility] CPT-80296 Level 4 Est. Patient 09:08:17 SUPERVISOR SLATE SPLITTING Tu Landeros MD [facility] CPT-96545 Level 4 Est. Patient 14:40:19 CDT Tu Landeros MD [facility] CPT-19078 Level 4 Est. Patient 14:06:04 SUPERVISOR SLATE SPLITTING Tu Landeros MD [facility] CPT-98885 Level 3 Est. Patient 14:05:18 SUPERVISOR SLATE SPLITTING Tu Landeros MD [facility] CPT-30475 Level 3 Est. Patient 10:06:54 SUPERVISOR [employer]ITT[employer] Miranda Farah APRN [facility] CPT-95085 Level 4 Est. Patient 13:50:18 SUPERVISOR SLATE SPLITTING uT Landeros MD [facility] CPT-14132 Level 3 Est. Patient 10:30:04 CDT Tu Landeros MD [facility] CPT-36295 Level 4 Est. Patient 11:03:38 CDT Tu Landeros MD [facility] CPT-43130 Level 3 Est. Patient 10:20:44 CDT Fab Morales DO [facility] CPT-11029 Level 4 Est. Patient 14:38:57 CDT Tu Landeros MD [facility] CPT-74212 Level 4 Est. Patient 14:27:39 SUPERVISOR SLATE SPLITTING Tu Landeros MD [facility] CPT-32203 Level 4 Est. Patient 09:45:25 CDT Tu Landeros MD [facility] CPT-26134 Level 4 Est. Patient 09:05:20 SUPERVISOR SLATE SPLITTING Tu Landeros MD [facility] CPT-59320 Level 4 Est. Patient 14:09:06 CDT Tu Landeros MD [facility] CPT-67264 Level 3 Est. Patient 13:36:54 CDT Tu Landeros MD [facility] CPT-43307 Level 3 Est. Patient 08:59:14 CDT Tu Landeros MD [facility] CPT-96447 Level 3 Est. Patient 13:48:35 CDT Fab Morales DO [facility] CPT-45692 Level 4 Est. Patient 10:05:48 CDT Tu Landeros MD [facility] CPT-72013 Level 3 Est. Patient 13:38:42 CDT Marek BANKS [facility] CPT-80433 Level 5 Est. Patient 08:08:39 CDT Jerrica FRANCIS [facility] CPT-93208 Level 4 Est. Patient 14:23:38 CDT Tu Landeros MD [facility] CPT-46809 Level 3 Est. Patient 11:44:04 CDT Tu Landeros MD [facility] CPT-69171 Level 3 Est. Patient 11:03:20 SUPERVISOR SLATE SPLITTING Tu Landeros MD [facility] CPT-23859 Level 3 Est. Patient 11:03:14 SUPERVISOR SLATE SPLITTING Tu Landeros MD [facility] CPT-38375 Level 3 Est. Patient 12:42:49 CDT Tu Landeros MD [facility] CPT-70447 Level 3 Est. Patient 11:52:06 CDT Tu Landeros MD [facility] CPT-32747 Level 3 Est. Patient 13:58:11 CDT Tu Landeros MD [facility] CPT-09090 Level 3 Est. Patient 17:50:07 CDT Fab Morales DO [facility] CPT-89895 Level 3 Est. Patient 12:06:29 CDT Elvira Cervantes MD PhD [facility] CPT-45032 Level 3 Est. Patient 15:50:32 CDT Tu Landeros MD [facility] CPT-17649 Level 4 Est. Patient 16:08:29 CDT Tu Landeros MD [facility] CPT-35858 Level 3 Est. Patient 16:04:19 CDT Tu Landeros MD [facility] CPT-09616 Level 3 Est. Patient 11:22:30 SUPERVISOR SLATE SPLITTING Tu Landeros MD [facility] CPT-43856 Level 4 Est. Patient 16:24:02 SUPERVISOR SLATE SPLITTING Tu Landeros MD [facility] CPT-89916 Level 3 Est. Patient 17:21:23 SUPERVISOR SLATE SPLITT[employer] Tu Landeros MD [facility] Procedures Code Procedure Name Date Entry Date Standard Description CPT-G0439 Subsequent Annual Wellness Exam 14:46:36 CDT CPT-55330 Shoulder, right, comp min 2V - XRAY USE ONLY 13:50:22 CDT CPT-G0009 Administration of Pneumococcal Vaccine 15:08:26 CDT CPT-33774 Prevnar 13 Intramuscular Suspension 15:08:26 CDT 10/08 CPT-G0439 Subsequent Annual Wellness Exam 14:29:22 CDT CPT-24291 Venipuncture Draw Fee 13:15:35 CDT CPT-37700 Magnesium - LAB USE ONLY 11:14:20 [employer] CPT-65242 Lipid - LAB USE ONLY 11:14:20 [employer] CPT-69914 HGBA1C - LAB USE ONLY 11:14:20 [employer] CPT-33639 CMP - LAB USE ONLY 11:14:19 [employer] CPT-64393 CBC - LAB USE ONLY 11:14:19 [employer] CPT-87027 Venipuncture Draw Fee 11:14:18 [employer] CPT-86893 First Vx - Ix admin for Medicare patients 16:46:52 CDT CPT-60546 Fluzone Preservative Free Intramuscular Suspension 16:46 :51 CDT CPT-91307 CBC - LAB USE ONLY 17:14:46 CDT CPT-69910 HGBA1C - LAB USE ONLY 17:14:46 CDT CPT-49480 Venipuncture Draw Fee 17:14:46 CDT CPT-G0438 Initial Annual Wellness Exam 14:13:04 CDT CPT-09546 Breathing Tx 10:06:54 [employer] CPT-23695 Postop F/U Visit 10:02:45 CDT CPT-LR Lesion Removal 09:02:56 CDT CPT-JTINJ Asp/Joint Injection 15:51:27 [employer] CPT-OV Office Visit 15:52:02 [employer] CPT-OV Office Visit 15:45:11 CDT CPT-000 Give Zostavax 14:09:06 CDT CPT-07333 Administration single or combination vaccine inc oral 15 :19:04 CDT CPT-72799 Zoster Vaccine (Zostavax) 15:19:04 CDT CPT-78464 Administration single or combination vaccine inc oral 20 :51:03 CDT CPT-48185 Influenza split virus > age 3 20:51:03 CDT CPT-89545 No Charge Offi Visit 14:52:03 CDT CPT-OV Office Visit 14:57:43 CDT CPT-OV Office Visit 15:22:32 CDT CPT-17052 Administration single or combination vaccine inc oral 11 :33:15 CDT CPT-99862 Influenza split virus > age 3 11:33:15 CDT
--- OUTSIDE RECORDS SUMMARY | 2018-04-25 12:05 | XMS REPORT | Clinical Summary ---
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 Acute upper respiratory infections of unspecified site [...] 1 GM ORAL CAPSULE 1 po qd [id number] ETHYL ESTERS 48765306302 Active Tu Landeros MD Active TRILIPIX 135 MG ORAL CAPSULE DELAYED RELEASE 1 q hs CHOLINE FENOFIBRATE 41994427491 No Longer Active Cynthia NUNOA Active TRIAMCINOLONE ACETONIDE 0.1 % EXTERNAL CREAM Apply to affected area TID for up to 2 weeks TRIAMCINOLONE ACETONIDE 71321665637 Active Tu Landeros MD Active INDOMETHACIN 50 MG ORAL CAPSULE 1 po TID PRN Pain INDOMETHACIN 57315361301 Active Tu Landeros MD Active PROMETHAZINE-CODEINE 6.25-10 MG/5ML ORAL SYRUP 5ml po q6hr PRN Cough PROMETHAZINE-CODEINE 65758947812 No Longer Active Tu Landeros MD Active AZITHROMYCIN 250 MG ORAL TABLET 2 po qd x 1, then 1 po qd x 4 AZITHROMYCIN 13839810506 No Longer Active Tu Landeros MD Active GUAIFENESIN ER 600 MG ORAL TABLET EXTENDED RELEASE 12 HOUR 1 twice a day as needed for congestion GUAIFENESIN 95145542509 No Longer Active Tu Landeros MD Active PREDNISONE 20 MG ORAL TABLET 2 po qd x 5 days PREDNISONE 00627584531 No Longer Active Tu Landeros MD Active FLUTICASONE PROPIONATE 50 MCG/ACT NASAL SUSPENSION 2 sprays/nostril qd PRN Congestion/Allergies FLUTICASONE PROPIONATE 98113080642 Active Tu Landeros MD Active NASONEX 50 MCG/ACT NASAL SUSPENSION 2 actuations in each nostril q day 07/15 MOMETASONE FUROATE 85272908672 No Longer Active Tu Landeros MD Active MAGNESIUM OXIDE 400 MG ORAL TABLET 1 po BID MAGNESIUM OXIDE 63298274826 Active Tu Landeros MD Active SIMVASTATIN 20 MG ORAL TABLET 0.5 po qHS SIMVASTATIN 02264229197 Active Tu Landeros MD Active DICLOFENAC SODIUM 75 MG ORAL TABLET DELAYED RELEASE 1 po BID PRN Pain DICLOFENAC SODIUM 43897563134 No Longer Active Tu Landeros MD Active GABAPENTIN 100 MG ORAL CAPSULE 1 po TID GABAPENTIN 00973175263 Active Tu Landeros MD Active DICLOFENAC SODIUM 50 MG ORAL TABLET DELAYED RELEASE 1 po BID PRN Pain DICLOFENAC SODIUM 41625160628 No Longer Active Tu Landeros MD Active CYCLOBENZAPRINE HCL 10 MG ORAL TABLET 1 po TID PRN Muscle Spasm CYCLOBENZAPRINE HCL 80561203671 No Longer Active Tu Landeros MD Active INVOKANA 100 MG ORAL TABLET 1 po qd CANAGLIFLOZIN 44330254262 Active José Luis Becerra MD Active GLIPIZIDE 5 MG ORAL TABLET 1 po qd GLIPIZIDE 01806044668 No Longer Active Tu Landeros MD Active VENLAFAXINE HCL 75 MG ORAL TABLET 1 po BID VENLAFAXINE HCL 00747252277 Active Tu Landeros MD Active GLIMEPIRIDE 1 MG ORAL TABLET 1 po qd GLIMEPIRIDE 35070179086 No Longer Active Tu Landeros MD Active TRUE METRIX BLOOD GLUCOSE TEST IN VITRO STRIP Test blood sugar BID Dx: E11.9 GLUCOSE BLOOD 06531121282 Active Tu Landeros MD Active TRUE METRIX AIR GLUCOSE METER w/Device KIT Test blood glucose BID Dx: E11.9 BLOOD GLUCOSE MONITORING SUPPL 50483835156 Active Tu Landeros MD Active TRUETEST TEST IN VITRO STRIP test blood sugar twice daily. DX 250.0 GLUCOSE BLOOD 24803604719 No Longer Active Mirna Stanley LPN Active TRUEDRAW LANCING DEVICE test blood sugar twice daily dx: 250.00 LANCET DEVICES 98139560822 No Longer Active Mirna Stanley LPN Active ENALAPRIL MALEATE 20 MG ORAL TABLET 2 po qd ENALAPRIL MALEATE 21252647695 Active Tu Landeros MD Active SUPER B COMPLEX/VITAMIN C ORAL TABLET 1 qd B COMPLEX- C 28658976260 No Longer Active Tu Landeros MD Active ASPIRIN EC 81 MG ORAL TABLET DELAYED RELEASE 1 po qd ASPIRIN 86630845266 Active Tu Landeros MD Active GLUCOSAMINE 500 MG TABS 2 po qd GLUCOSAMINE Active Tu Landeros MD Active FISH OIL 1000 MG ORAL CAPSULE 1 po qd OMEGA-3 FATTY ACIDS 97338738869 Active Tu Landeros MD Active METFORMIN HCL 1000 MG ORAL TABLET 1 po BID METFORMIN HCL 90046899856 Active Tu Landeros MD Active KLOR-CON 10 10 MEQ ORAL TABLET EXTENDED RELEASE 2 po qd POTASSIUM CHLORIDE 28050964127 Active Tu Landeros MD Active FUROSEMIDE 40 MG ORAL TABLET 1 po qd FUROSEMIDE 60388760241 Active Tu Landeros MD Active REQUIP 2 MG ORAL TABLET 1 po qHS PRN Restless legs ROPINIROLE HCL 28193176608 Active Tu Landeros MD Active REQUIP 2 MG ORAL TABLET Take one tablet at bedtime prn ROPINIROLE HCL 93355387615 No Longer Active Tu Landeros MD Active VENTOLIN HFA 108 (90 Base) MCG/ACT INHALATION AEROSOL SOLUTION 1-2 puffs every 4 hours if needed for cough/congestion ALBUTEROL SULFATE 67436518025 No Longer Active Ambika Aden APRN Active ZITHROMAX 250 MG ORAL TABLET 2 po today, then 1 po q days 2-5 AZITHROMYCIN 08243507866 No Longer Active Miranda Farah APRN Active FLONASE 50 MCG/ACT NASAL SUSPENSION 1 spray each nostril twice daily until bottle empty FLUTICASONE PROPIONATE 44442468964 No Longer Active Tu Landeros MD Active COLACE 100 MG ORAL CAPSULE 1 po BID PRN Constipation DOCUSATE SODIUM 85856319607 Active Tu Landeros MD Active TRUERESULT BLOOD GLUCOSE w/Device KIT test blood sugar twice daily dx 250.00 BLOOD GLUCOSE MONITORING SUPPL 74676867469 No Longer Active Tu Landeros MD Active TRUEDRAW LANCING DEVICE Test twice a day dx 250.0 LANCET DEVICES 81077007342 No Longer Active Tu Landeros MD Active PREDNISONE 20 MG ORAL TABLET 2 tablets once daily for 2 days, then 1 tablet once daily for 2 days PREDNISONE 42748194390 No Longer Active Tu Landeros MD Active DICLOFENAC SODIUM 50 MG ORAL TABLET DELAYED RELEASE 1 tablet by mouth three times a day as needed DICLOFENAC SODIUM 01764401471 No Longer Active Fab Morales DO Active EMBRACE BLOOD GLUCOSE TEST IN VITRO STRIP test blood sugar twice daily DX 250.0 GLUCOSE BLOOD 09615751773 No Longer Active Tu Landeros MD Active TRUETEST TEST IN VITRO STRIP test blood sugar three times daily dx: 250.00 GLUCOSE BLOOD 05095198327 No Longer Active Suze VOGEL Active TRUERESULT BLOOD GLUCOSE w/Device KIT use to test blood sugar tid dx: 250.00 BLOOD GLUCOSE MONITORING SUPPL 40009884488 No Longer Active Suzebianca VOGEL Active ALIGN 4 MG ORAL CAPSULE 1 tid PROBIOTIC PRODUCT 59074168744 No Longer Active Shaun Sy MD Active CIPRO 500 MG ORAL TABLET 1 bid x 14 days start 09-28-13 CIPROFLOXACIN HCL 32487503250 No Longer Active Shaun Sy MD Active TRAMADOL HCL 50 MG ORAL TABLET 1-2 tablets every 6 hours as needed for pain TRAMADOL HCL 47980328769 Active Tu Landeros MD Active HYDROCODONE-ACETAMINOPHEN 5-325 MG ORAL TABLET 1 tab by mouth every 6 hours as needed for pain HYDROCODONE-ACETAMINOPHEN 88310172259 No Longer Active Tu Landeros MD Active OMEPRAZOLE 20 MG ORAL CAPSULE DELAYED RELEASE 1 po q a.m. OMEPRAZOLE 58372239519 Active Tu Landeros MD Active GABAPENTIN 100 MG ORAL CAPSULE 1 po bid GABAPENTIN 28460306364 No Longer Active Tu Landeros MD Active B-12 100 MCG ORAL TABLET Take one by mouth daily CYANOCOBALAMIN 48589265926 No Longer Active Tu Landeros MD Active BACTRIM DS 800-160 MG ORAL TABLET 1 bid x 14 day start 09-28-13 SULFAMETHOXAZOLE-TRIMETHOPRIM 62532341042 No Longer Active Tu Landeros MD Active CARVEDILOL 12.5 MG ORAL TABLET 1 po BID CARVEDILOL 54420683180 Active Tu Landeros MD Active FENOFIBRATE 145 MG ORAL TABLET 1 po qd FENOFIBRATE 00993634839 No Longer Active JASPREET Perez Active OMEPRAZOLE 20 MG ORAL TABLET DELAYED RELEASE 1 PO 30 MIN BEFORE 1ST MEAL 2010 OMEPRAZOLE 36537094899 No Longer Active JASPREET Perez Active SIMVASTATIN 40 MG ORAL TABLET Take one by mouth daily SIMVASTATIN 79103739444 No Longer Active JASPREET Perez Active VENLAFAXINE HCL 75 MG ORAL TABLET 1 po BID VENLAFAXINE HCL 79339870111 No Longer Active JASPREET Perez Active CIPRO 500 MG ORAL TABLET 1 tablet by mouth twice daily CIPROFLOXACIN HCL 88305643233 No Longer Active Tu Landeros MD Active VENLAFAXINE HCL 37.5 MG ORAL TABLET 1 po BID VENLAFAXINE HCL 97842499649 No Longer Active Suze NUNOA Active LAMISIL 250 MG ORAL TABLET 1 po qd TERBINAFINE HCL 18812732371 No Longer Active Tu Landeros MD Active LORTAB 5-500 MG ORAL TABLET 1/2 to 1 tablet by mouth every 4 hours as needed for pain HYDROCODONE-ACETAMINOPHEN 28652113282 No Longer Active Tu Landeros MD Active HYDROCODONE-ACETAMINOPHEN 5-500 MG ORAL TABLET take one po Q 4-6 hours prn HYDROCODONE-ACETAMINOPHEN 60896434253 No Longer Active Tu Landeros MD Active BACTRIM DS 800-160 MG ORAL TABLET 1 po BID x 7 days SULFAMETHOXAZOLE-TRIMETHOPRIM 04511799805 No Longer Active uT Landeros MD Active VENLAFAXINE HCL 75 MG ORAL TABLET 1 po BID VENLAFAXINE HCL 75790441226 No Longer Active Elvira Cervantes MD PhD Active TRAMADOL HCL 50 MG ORAL TABLET 1 tablets every 6 hours as needed for pain TRAMADOL HCL 24115154653 No Longer Active Tu Landeros MD Active ACCU-CHEDawson FASTCLIX LANCETS Use to check bloodsugar three times daily as needed LANCETS 89757063727 No Longer Active Tu Landeros MD Active ACCU-CHEDawson KEYONA PLUS IN VITRO STRIP Use for testing bloodsugars three times daily as needed GLUCOSE BLOOD 61581617351 No Longer Active Tu Landeros MD Active ACCU-CHEK KEYONA PLUS w/Device KIT Use for testing bloodsugars three times daily as needed BLOOD GLUCOSE MONITORING SUPPL 15731858738 No Longer Active Tu Landeros MD Active SPIRONOLACTONE 25 MG ORAL TABLET 0.5 tablet by mouth daily 09/09 SPIRONOLACTONE 07348215537 No Longer Active Tu Landeros MD Active ALPRAZOLAM 0.5 MG ORAL TABLET 1 tab every 6hrs as needed ALPRAZOLAM 12488436660 No Longer Active Tu Landeros MD Active AUGMENTIN 875-125 MG ORAL TABLET 1 tab by mouth twice daily with food AMOXICILLIN-POT CLAVULANATE 99961530349 No Longer Active Tu Landeros MD Active PREDNISONE 20 MG ORAL TABLET 2 tabs daily for 3 days, 1 tab daily for 3 days, 1/2 tab daily for 2 days PREDNISONE 54722795342 No Longer Active Tu Landeros MD Active XANAX 0.5 MG ORAL TABLET 1 tablet every 6 hrs prn ALPRAZOLAM 30223923246 No Longer Active Tu Landeros MD Active PREDNISONE 20 MG ORAL TABLET 2 tabs daily for 3 days, 1 tab daily for 3 days, 1/2 tab daily for 2 days PREDNISONE 61024084446 No Longer Active Tu Landeros MD Active TRIAMCINOLONE ACETONIDE 0.1 % EXTERNAL OINTMENT Apply to affected areas TID for up to 2 weeks TRIAMCINOLONE ACETONIDE 58268251801 No Longer Active Tu Landeros MD Active LORTAB 5-500 MG ORAL TABLET 1/2 to 1 tablet by mouth every 4 hours as needed for pain HYDROCODONE-ACETAMINOPHEN 47487658014 No Longer Active Tu Landeros MD Active MULTIVITAMINS TABS Take one by mouth daily MULTIPLE VITAMIN 55991426004 No Longer Active Tu Landeros MD Active MELATONIN 5 MG ORAL TABLET Take one by mouth daily MELATONIN 70064931627 No Longer Active Tu Landeros MD Active SOMA 350 MG ORAL TABLET 1 po q 6 hours prn spasm CARISOPRODOL 47157527244 No Longer Active Tu Landeros MD Active MECLIZINE HCL 25 MG ORAL TABLET CHEWABLE 1 four times a day as needed for dizziness MECLIZINE HCL 64844410446 No Longer Active Fab Morales DO Active ANGEL BREEZE 2 TEST IN VITRO DISK test tid prn GLUCOSE BLOOD 74884545491 No Longer Active Negra Scott RN Active REGLAN 10 MG ORAL TABLET 1 po TID PRN Nausea METOCLOPRAMIDE HCL 33702779493 No Longer Active Tu Landeros MD Active METFORMIN HCL 500 MG ORAL TABLET 1 PO BID METFORMIN HCL 14411796172 No Longer Active Tu Landeros MD Active AMBIEN 10 MG ORAL TABLET 1 tab by mouth at bedtime as needed for sleep 06/10 ZOLPIDEM TARTRATE 43567682000 No Longer Active Tu Landeros MD Active FLUOXETINE HCL 40 MG ORAL CAPSULE 1 po q day FLUOXETINE HCL 75880384684 No Longer Active Mayra Canton Active TRILIPIX 135 MG ORAL CAPSULE DELAYED RELEASE 1 po qd CHOLINE FENOFIBRATE 91419162281 No Longer Active Tu Landeros MD Active AMBIEN 10 MG ORAL TABLET 1 tab by mouth at bedtime as needed for sleep 06/10 AMBIEN 10 MG ORAL TABLET 461964 ZOLPIDEM TARTRATE Inactive METFORMIN HCL 500 MG ORAL TABLET 1 PO BID METFORMIN HCL 500 MG ORAL TABLET 671664 METFORMIN HCL Inactive REGLAN 10 MG ORAL TABLET 1 po TID PRN Nausea REGLAN 10 MG ORAL TABLET 858491 METOCLOPRAMIDE HCL Inactive MECLIZINE HCL 25 MG ORAL TABLET CHEWABLE 1 four times a day as needed for dizziness MECLIZINE HCL 25 MG ORAL TABLET CHEWABLE 813596 MECLIZINE HCL Inactive SOMA 350 MG ORAL TABLET 1 po q 6 hours prn spasm SOMA 350 MG ORAL TABLET 067884 CARISOPRODOL Inactive MELATONIN 5 MG ORAL TABLET Take one by mouth daily MELATONIN 5 MG ORAL TABLET 060900 MELATONIN Inactive MULTIVITAMINS TABS Take one by mouth daily MULTIVITAMINS TABS MULTIPLE VITAMIN Inactive LORTAB 5-500 MG ORAL TABLET 1/2 to 1 tablet by mouth every 4 hours as needed for pain LORTAB 5-500 MG ORAL TABLET HYDROCODONE- ACETAMINOPHEN Inactive XANAX 0.5 MG ORAL TABLET 1 tablet every 6 hrs prn XANAX 0.5 MG ORAL TABLET 780346 ALPRAZOLAM Inactive AUGMENTIN 875-125 MG ORAL TABLET 1 tab by mouth twice daily with food AUGMENTIN 875-125 MG ORAL TABLET 261812 AMOXICILLIN-POT CLAVULANATE Inactive ALPRAZOLAM 0.5 MG ORAL TABLET 1 tab every 6hrs as needed ALPRAZOLAM 0.5 MG ORAL TABLET 131677 ALPRAZOLAM Inactive SPIRONOLACTONE 25 MG ORAL TABLET 0.5 tablet by mouth daily 09/09 SPIRONOLACTONE 25 MG ORAL TABLET 482991 SPIRONOLACTONE Inactive ACCU-CHEK KEYONA PLUS w/Device KIT [...] times daily as needed ACCU-CHEK FASTCLIX LANCETS 31583050916 LANCETS Inactive TRAMADOL HCL 50 MG ORAL TABLET 1 tablets every 6 hours as needed for pain TRAMADOL HCL 50 MG ORAL TABLET 938021 TRAMADOL HCL Inactive VENLAFAXINE HCL 75 MG ORAL TABLET 1 po BID VENLAFAXINE HCL 75 MG ORAL TABLET 761152 VENLAFAXINE HCL Inactive HYDROCODONE-ACETAMINOPHEN 5-500 MG ORAL TABLET take one po Q 4-6 hours prn HYDROCODONE-ACETAMINOPHEN 5-500 MG ORAL TABLET HYDROCODONE-ACETAMINOPHEN Inactive LORTAB 5-500 MG ORAL TABLET 1/2 to 1 tablet by mouth every 4 hours as needed for pain LORTAB 5-500 MG ORAL TABLET HYDROCODONE- ACETAMINOPHEN Inactive LAMISIL 250 MG ORAL TABLET 1 po qd LAMISIL 250 MG ORAL TABLET 438159 TERBINAFINE HCL Inactive VENLAFAXINE HCL 37.5 MG ORAL TABLET 1 po BID VENLAFAXINE HCL 37.5 MG ORAL TABLET 199207 VENLAFAXINE HCL Inactive CIPRO 500 MG ORAL TABLET 1 tablet by mouth twice daily CIPRO 500 MG ORAL TABLET 749569 CIPROFLOXACIN HCL Inactive VENLAFAXINE HCL 75 MG ORAL TABLET 1 po BID VENLAFAXINE HCL 75 MG ORAL TABLET 588586 VENLAFAXINE HCL Inactive SIMVASTATIN 40 MG ORAL TABLET Take one by mouth daily SIMVASTATIN 40 MG ORAL TABLET 420562 SIMVASTATIN Inactive OMEPRAZOLE 20 MG ORAL TABLET DELAYED RELEASE 1 PO 30 MIN BEFORE 1ST MEAL 2010 OMEPRAZOLE 20 MG ORAL TABLET DELAYED RELEASE 832220 OMEPRAZOLE Inactive FENOFIBRATE 145 MG ORAL TABLET 1 po qd FENOFIBRATE 145 MG ORAL TABLET 423407 FENOFIBRATE Inactive BACTRIM DS 800-160 MG ORAL TABLET 1 bid x 14 day start 09-28-13 BACTRIM DS 800-160 MG ORAL TABLET 509122 SULFAMETHOXAZOLE- TRIMETHOPRIM Inactive B-12 100 MCG ORAL TABLET Take one by mouth daily B-12 100 MCG ORAL TABLET CYANOCOBALAMIN Inactive GABAPENTIN 100 MG ORAL CAPSULE 1 po bid GABAPENTIN 100 MG ORAL CAPSULE 706530 GABAPENTIN Inactive HYDROCODONE-ACETAMINOPHEN 5-325 MG ORAL TABLET 1 tab by mouth every 6 hours as needed for pain HYDROCODONE-ACETAMINOPHEN 5-325 MG ORAL TABLET 772174 HYDROCODONE-ACETAMINOPHEN Inactive CIPRO 500 MG ORAL TABLET 1 bid x 14 days start 814 CIPRO 500 MG ORAL TABLET 375379 CIPROFLOXACIN HCL Inactive ALIGN 4 MG ORAL [...] SODIUM 50 MG ORAL TABLET DELAYED RELEASE 972306 DICLOFENAC SODIUM Inactive PREDNISONE 20 MG ORAL TABLET 2 tablets once daily for 2 days, then 1 tablet once daily for 2 days PREDNISONE 20 MG ORAL TABLET 222093 PREDNISONE Inactive TRUEDRAW LANCING DEVICE Test twice a day dx 250.0 TRUEDRAW LANCING DEVICE LANCET DEVICES Inactive TRUERESULT BLOOD GLUCOSE w/Device KIT test blood sugar twice daily dx 250.00 TRUERESULT BLOOD GLUCOSE w/Device KIT BLOOD GLUCOSE MONITORING SUPPL Inactive FLONASE 50 MCG/ACT NASAL SUSPENSION 1 spray each nostril twice daily until bottle empty FLONASE 50 MCG/ACT NASAL SUSPENSION 6197485 FLUTICASONE PROPIONATE Inactive VENTOLIN HFA 108 (90 Base) MCG/ACT INHALATION AEROSOL SOLUTION 1-2 puffs every 4 hours if needed for cough/congestion VENTOLIN HFA 108 (90 Base) MCG/ACT INHALATION AEROSOL SOLUTION ALBUTEROL SULFATE Inactive REQUIP 2 MG ORAL TABLET Take one tablet at bedtime prn REQUIP 2 MG ORAL TABLET 463036 ROPINIROLE HCL Inactive SUPER B COMPLEX/VITAMIN C ORAL TABLET 1 qd SUPER B COMPLEX/VITAMIN C ORAL TABLET 88606757790 B COMPLEX-C Inactive TRUEDRAW LANCING DEVICE test blood sugar twice daily dx: 250.00 TRUEDRAW LANCING DEVICE LANCET DEVICES Inactive TRUETEST TEST IN VITRO STRIP test blood sugar twice daily. DX 250.0 TRUETEST TEST IN VITRO STRIP GLUCOSE BLOOD Inactive CYCLOBENZAPRINE HCL 10 MG ORAL TABLET 1 po TID PRN Muscle Spasm CYCLOBENZAPRINE HCL 10 MG ORAL TABLET 986117 CYCLOBENZAPRINE HCL Inactive DICLOFENAC SODIUM 50 MG ORAL TABLET DELAYED RELEASE 1 po BID PRN Pain DICLOFENAC SODIUM 50 MG ORAL TABLET DELAYED RELEASE 632630 DICLOFENAC SODIUM Inactive DICLOFENAC SODIUM 75 MG ORAL TABLET DELAYED RELEASE 1 po BID PRN Pain DICLOFENAC SODIUM 75 MG ORAL TABLET DELAYED RELEASE 067695 DICLOFENAC SODIUM Inactive NASONEX 50 MCG/ACT NASAL SUSPENSION 2 actuations in each nostril q day 07/15 NASONEX 50 MCG/ACT NASAL SUSPENSION 3828579 MOMETASONE FUROATE Inactive GUAIFENESIN ER 600 MG ORAL TABLET EXTENDED RELEASE 12 HOUR 1 twice a day as needed for congestion GUAIFENESIN ER 600 MG ORAL TABLET EXTENDED RELEASE 12 HOUR GUAIFENESIN Inactive AZITHROMYCIN 250 MG ORAL TABLET 2 po qd x 1, then 1 po qd x 4 AZITHROMYCIN 250 MG ORAL TABLET 427651 AZITHROMYCIN Inactive PROMETHAZINE-CODEINE 6.25-10 MG/5ML ORAL SYRUP 5ml po q6hr PRN Cough PROMETHAZINE-CODEINE 6.25-10 MG/5ML ORAL SYRUP 377158 PROMETHAZINE-CODEINE Inactive TRILIPIX 135 MG ORAL CAPSULE DELAYED RELEASE 1 q hs TRILIPIX 135 MG ORAL CAPSULE DELAYED RELEASE 741837 CHOLINE FENOFIBRATE Inactive TRIAMCINOLONE ACETONIDE 0.1 % EXTERNAL OINTMENT Apply to affected areas TID for up to 2 weeks TRIAMCINOLONE ACETONIDE 0.1 % EXTERNAL OINTMENT 6788989 TRIAMCINOLONE ACETONIDE Inactive PREDNISONE 20 MG ORAL TABLET 2 tabs daily for 3 days, 1 tab daily for 3 days, 1/2 tab daily for 2 days PREDNISONE 20 MG ORAL TABLET 980922 PREDNISONE Inactive PREDNISONE 20 MG ORAL TABLET 2 tabs daily for 3 days, 1 tab daily for 3 days, 1/2 tab daily for 2 days PREDNISONE 20 MG ORAL TABLET 111576 PREDNISONE Inactive BACTRIM DS 800-160 MG ORAL TABLET 1 po BID x 7 days BACTRIM DS 800-160 MG ORAL TABLET 172317 SULFAMETHOXAZOLE-TRIMETHOPRIM Inactive ZITHROMAX 250 MG ORAL TABLET 2 po today, then 1 po q days 2-5 ZITHROMAX 250 MG ORAL TABLET 198365 AZITHROMYCIN Inactive PREDNISONE 20 MG ORAL TABLET 2 po qd x 5 days PREDNISONE 20 MG ORAL TABLET 093470 PREDNISONE Inactive Advance Directives Directive Description Start Date DISCUSSED WITH PATIENT -- NO DECISION MADE Immunizations Vaccine Administration Date Value Standard Description Seasonal influenza vaccine, injectable, containing preservative, for > 3 years old (Afluria, FluLaval, Fluzone, Fluvirin, Fluarix, Agriflu(>=18 yo)) Fluzone (>3 yrs.) [[id number]] Influenza, seasonal, injectable influenza immunization (Flu Vax) has been administered 02/22/2012 influenza virus vaccine, unspecified formulation Seasonal influenza vaccine, injectable, containing preservative, for > 3 years old (Afluria, FluLaval, Fluzone, Fluvirin, Fluarix, Agriflu(>=18 yo)) Fluzone (>3 yrs.) [[id number]] Influenza, seasonal, injectable Vital Signs Date Name [...] ... - Chemistry sodium, serum 141 mmol/L 412-647 7817/01/16 carbon dioxide, venous blood 28.3 mmol/L 21.0-32.0 [...] 6.7 % 4.3-6.0 cholesterol, serum 106 mg/dL 697-903 9208/01/16 triglyceride, serum, fasting 173 mg/dL 30-200 HDL [...] Magnesium - Chemistry sodium, serum 142 mmol/L 022-683 0210/07/16 carbon dioxide, venous blood 29.4 mmol/L 21.0-32.0 [...] Panel - Chemistry cholesterol, serum 170 mg/dL 113-569 7060/07/16 triglyceride, serum, fasting 266 mg/dL 30-200 HDL cholesterol, serum 42 mg/dL 32-60 LDL cholesterol, serum 75 mg/dL 0-130 Encounters Code Encounter Date Provider Facility CPT-39795 Level 4 Est. Patient 14:46:36 CDT Tu Landeros MD [facility] CPT-70746 Level 3 Est. Patient 10:28:05 CDT Tu Landeros MD [facility] CPT-99331 Level 3 Est. Patient 09:11:32 CDT Tu Landeros MD [facility] CPT-07538 Level 3 Est. Patient 10:13:19 REPAIR SUPERVISOR Lesli Kellogg APRN [facility] CPT-89860 Level 4 Est. Patient 13:42:02 REPAIR SUPERVISOR Tu Landeros MD [facility] CPT-26348 Level 3 Est. Patient 14:20:36 CDT Tu Landeros MD [facility] CPT-89858 Level 4 Est. Patient 14:28:34 CDT Tu Landeros MD [facility] CPT-65500 Level 3 Est. Patient 13:33:09 CDT Tu Landeros MD [facility] CPT-67170 Level 4 Est. Patient 14:29:21 CDT Tu Landeros MD [facility] CPT-54204 Level 4 Est. Patient 09:08:17 REPAIR SUPERVISOR Tu Landeros MD [facility] CPT-73157 Level 4 Est. Patient 14:40:19 CDT Tu Landeros MD [facility] CPT-66425 Level 4 Est. Patient 14:06:04 REPAIR SUPERVISOR Tu Landeros MD [facility] CPT-96207 Level 3 Est. Patient 14:05:18 REPAIR SUPERVISOR Tu Landeros MD [facility] CPT-21559 Level 3 Est. Patient 10:06:54 REPAIR SUPERVISOR Miranda Farah APRN [facility] CPT-46075 Level 4 Est. Patient 13:50:18 REPAIR SUPERVISOR Tu Landeros MD [facility] CPT-29530 Level 3 Est. Patient 10:30:04 CDT Tu Landeros MD [facility] CPT-19811 Level 4 Est. Patient 11:03:38 CDT Tu Landeros MD [facility] CPT-36473 Level 3 Est. Patient 10:20:44 CDT Fab Morales DO [facility] CPT-66270 Level 4 Est. Patient 14:38:57 CDT Tu Landeros MD [facility] CPT-05382 Level 4 Est. Patient 14:27:39 REPAIR SUPERVISOR Tu Landeros MD [facility] CPT-40453 Level 4 Est. Patient 09:45:25 CDT Tu Landeros MD [facility] CPT-76260 Level 4 Est. Patient 09:05:20 REPAIR SUPERVISOR Tu Landeros MD [facility] CPT-60635 Level 4 Est. Patient 14:09:06 CDT Tu Landeros MD [facility] CPT-20896 Level 3 Est. Patient 13:36:54 CDT Tu Landeros MD [facility] CPT-57756 Level 3 Est. Patient 08:59:14 CDT Tu Landeros MD [facility] CPT-04897 Level 3 Est. Patient 13:48:35 CDT Fab Morales DO [facility] CPT-07933 Level 4 Est. Patient 10:05:48 CDT Tu Landeros MD [facility] CPT-70619 Level 3 Est. Patient 13:38:42 CDT Marek BANKS [facility] CPT-33324 Level 5 Est. Patient 08:08:39 CDT Jerrica FRANCIS [facility] CPT-79751 Level 4 Est. Patient 14:23:38 CDT Tu Landeros MD [facility] CPT-51526 Level 3 Est. Patient 11:44:04 CDT Tu Landeros MD [facility] CPT-90037 Level 3 Est. Patient 11:03:20 REPAIR SUPERVISOR Tu Landeros MD [facility] CPT-34576 Level 3 Est. Patient 11:03:14 REPAIR SUPERVISOR Tu Landeros MD [facility] CPT-66134 Level 3 Est. Patient 12:42:49 CDT Tu Landeros MD [facility] CPT-43752 Level 3 Est. Patient 11:52:06 CDT Tu Landeros MD [facility] CPT-30310 Level 3 Est. Patient 13:58:11 CDT Tu Landeros MD [facility] CPT-03733 Level 3 Est. Patient 17:50:07 CDT Fab Morales DO [facility] CPT-47016 Level 3 Est. Patient 12:06:29 CDT Elvira Cervantes MD PhD [facility] CPT-69482 Level 3 Est. Patient 15:50:32 CDT Tu Landeros MD [facility] CPT-13513 Level 4 Est. Patient 16:08:29 CDT Tu Landeros MD [facility] CPT-41760 Level 3 Est. Patient 16:04:19 CDT Tu Landeros MD [facility] CPT-98217 Level 3 Est. Patient 11:22:30 REPAIR SUPERVISOR Tu Landeros MD [facility] CPT-08663 Level 4 Est. Patient 16:24:02 REPAIR SUPERVISOR Tu Landeros MD [facility] CPT-24678 Level 3 Est. Patient 17:21:23 REPAIR SUPERVISOR Tu Landeros MD [facility] Procedures Code Procedure Name Date Entry Date Standard Description CPT-G0439 Subsequent Annual Wellness Exam 14:46:36 CDT CPT-87411 Shoulder, right, comp min 2V - XRAY USE ONLY 13:50:22 CDT CPT-G0009 Administration of Pneumococcal Vaccine 15:08:26 CDT CPT-00289 Prevnar 13 Intramuscular Suspension 15:08:26 CDT 10/08 CPT-G0439 Subsequent Annual Wellness Exam 14:29:22 CDT CPT-65174 Venipuncture Draw Fee 13:15:35 CDT CPT-37263 Magnesium - LAB USE ONLY 11:14:20 REPAIR SUPERVISOR CPT-91421 Lipid - LAB USE ONLY 11:14:20 REPAIR SUPERVISOR CPT-20461 HGBA1C - LAB USE ONLY 11:14:20 REPAIR SUPERVISOR CPT-22277 CMP - LAB USE ONLY 11:14:19 REPAIR SUPERVISOR CPT-02265 CBC - LAB USE ONLY 11:14:19 REPAIR SUPERVISOR CPT-12493 Venipuncture Draw Fee 11:14:18 REPAIR SUPERVISOR CPT-60689 First Vx - Ix admin for Medicare patients 16:46:52 CDT CPT-02914 Fluzone Preservative Free Intramuscular Suspension 16:46 :51 CDT CPT-18987 CBC - LAB USE ONLY 17:14:46 CDT CPT-19260 HGBA1C - LAB USE ONLY 17:14:46 CDT CPT-70488 Venipuncture Draw Fee 17:14:46 CDT CPT-G0438 Initial Annual Wellness Exam 14:13:04 CDT CPT-73638 Breathing Tx 10:06:54 REPAIR SUPERVISOR CPT-80395 Postop F/U Visit 10:02:45 CDT CPT-LR Lesion Removal 09:02:56 CDT CPT-JTINJ Asp/Joint Injection 15:51:27 REPAIR SUPERVISOR CPT-OV Office Visit 15:52:02 REPAIR SUPERVISOR CPT-OV Office Visit 15:45:11 CDT CPT-000 Give Zostavax 14:09:06 CDT CPT-38644 Administration single or combination vaccine inc oral 15 :19:04 CDT CPT-89550 Zoster Vaccine (Zostavax) 15:19:04 CDT CPT-75087 Administration single or combination vaccine inc oral 20 :51:03 CDT CPT-29918 Influenza split virus > age 3 20:51:03 CDT CPT-70294 No Charge Offi Visit 14:52:03 CDT CPT-OV Office Visit 14:57:43 CDT CPT-OV Office Visit 15:22:32 CDT CPT-73895 Administration single or combination vaccine inc oral 11 :33:15 CDT CPT-36677 Influenza split virus > age 3 11:33:15 CDT
--- OUTSIDE RECORDS SUMMARY | 2018-04-25 12:07 | XMS REPORT | Clinical Summary ---
Author Author Admin, SACHI Organization [employer] Address Unknown Phone Unavailable Allergies, Adverse Reactions, [...] unspecified hyperlipidemia POSTMENOPAUSAL BLEEDING 627.1 Resolved Elvira Cervnates MD PhD Postmenopausal bleeding DIABETES MELLITUS, TYPE [...] involving lower leg Obesity 278.00 Inactive Tu Landreos MD Obesity, unspecified Morbid obesity 278.01 Active [...] magnesium metabolism URI 465.9 Inactive Lesli Kellogg TESTING TECH Acute upper respiratory infections of unspecified site Upper respiratory infection, viral 465.9 Resolved Tu Landeros MD Acute upper respiratory infections of unspecified site Body Mass Index 50.0-59.9 Adult Active Tu Landeros MD Body Mass Index 50.0-59.9, adult Wrist pain, left 719.43 Active Tu Landeros MD Pain in joint involving forearm POSTMENOPAUSAL BLEEDING ICD-627.1 Inactive Elvira Cervantes MD PhD HEALTH SCREENING ICD-V70.0 Inactive Elvria Cervantes MD PhD 2011 INSOMNIA, PERSISTENT ICD-307.42 [...] Upper respiratory infection, viral ICD-465.9 Inactive Shaun yS MD Open wound of other and unspecified [...] 1 GM ORAL CAPSULE 1 po qd [id number] ETHYL ESTERS 88198614902 Active Tu Landeros MD Active TRILIPIX 135 MG ORAL CAPSULE DELAYED RELEASE 1 q hs CHOLINE FENOFIBRATE 16757325531 No Longer Active Cynthia NUNOA Active TRIAMCINOLONE ACETONIDE 0.1 % EXTERNAL CREAM Apply to affected area TID for up to 2 weeks TRIAMCINOLONE ACETONIDE 95761691266 Active Tu Landeros MD Active INDOMETHACIN 50 MG ORAL CAPSULE 1 po TID PRN Pain INDOMETHACIN 97036514143 Active Tu Landeros MD Active PROMETHAZINE-CODEINE 6.25-10 MG/5ML ORAL SYRUP 5ml po q6hr PRN Cough PROMETHAZINE-CODEINE 84969667448 No Longer Active Tu Landeros MD Active AZITHROMYCIN 250 MG ORAL TABLET 2 po qd x 1, then 1 po qd x 4 AZITHROMYCIN 68086619241 No Longer Active Tu Landeros MD Active GUAIFENESIN ER 600 MG ORAL TABLET EXTENDED RELEASE 12 HOUR 1 twice a day as needed for congestion GUAIFENESIN 93057248461 No Longer Active Tu Landeros MD Active PREDNISONE 20 MG ORAL TABLET 2 po qd x 5 days PREDNISONE 78175754530 No Longer Active Tu Landreos MD Active FLUTICASONE PROPIONATE 50 MCG/ACT NASAL SUSPENSION 2 sprays/nostril qd PRN Congestion/Allergies FLUTICASONE PROPIONATE 36388370669 Active Tu Landeros MD Active NASONEX 50 MCG/ACT NASAL SUSPENSION 2 actuations in each nostril q day 07/15 MOMETASONE FUROATE 21208216579 No Longer Active Tu Landeros MD Active MAGNESIUM OXIDE 400 MG ORAL TABLET 1 po BID MAGNESIUM OXIDE 73854936443 Active Tu Landeros MD Active SIMVASTATIN 20 MG ORAL TABLET 0.5 po qHS SIMVASTATIN 66946204705 Active Tu Landeros MD Active DICLOFENAC SODIUM 75 MG ORAL TABLET DELAYED RELEASE 1 po BID PRN Pain DICLOFENAC SODIUM 25870738212 No Longer Active Tu Landeros MD Active GABAPENTIN 100 MG ORAL CAPSULE 1 po TID GABAPENTIN 65194326475 Active Tu Landeros MD Active DICLOFENAC SODIUM 50 MG ORAL TABLET DELAYED RELEASE 1 po BID PRN Pain DICLOFENAC SODIUM 81487678356 No Longer Active Tu Landeros MD Active CYCLOBENZAPRINE HCL 10 MG ORAL TABLET 1 po TID PRN Muscle Spasm CYCLOBENZAPRINE HCL 24981761428 No Longer Active Tu Landeros MD Active INVOKANA 100 MG ORAL TABLET 1 po qd CANAGLIFLOZIN 20000972405 Active José Luis Becerra MD Active GLIPIZIDE 5 MG ORAL TABLET 1 po qd GLIPIZIDE 06853843085 No Longer Active Tu Landeros MD Active VENLAFAXINE HCL 75 MG ORAL TABLET 1 po BID VENLAFAXINE HCL 19686853359 Active Tu Landeros MD Active GLIMEPIRIDE 1 MG ORAL TABLET 1 po qd GLIMEPIRIDE 87178124614 No Longer Active Tu Landeros MD Active TRUE METRIX BLOOD GLUCOSE TEST IN VITRO STRIP Test blood sugar BID Dx: E11.9 GLUCOSE BLOOD 10304415124 Active Tu Landeros MD Active TRUE METRIX AIR GLUCOSE METER w/Device KIT Test blood glucose BID Dx: E11.9 BLOOD GLUCOSE MONITORING SUPPL 80166899573 Active Tu Landeros MD Active TRUETEST TEST IN VITRO STRIP test blood sugar twice daily. DX 250.0 GLUCOSE BLOOD 68904826228 No Longer Active Mirna Stanley LPN Active TRUEDRAW LANCING DEVICE test blood sugar twice daily dx: 250.00 LANCET DEVICES 45217700264 No Longer Active Mirna Stanley LPN Active ENALAPRIL MALEATE 20 MG ORAL TABLET 2 po qd ENALAPRIL MALEATE 99638447314 Active Tu Landeros MD Active SUPER B COMPLEX/VITAMIN C ORAL TABLET 1 qd B COMPLEX- C 87324604807 No Longer Active Tu Landeros MD Active ASPIRIN EC 81 MG ORAL TABLET DELAYED RELEASE 1 po qd ASPIRIN 11063167680 Active Tu Landeros MD Active GLUCOSAMINE 500 MG TABS 2 po qd GLUCOSAMINE Active Tu Landeros MD Active FISH OIL 1000 MG ORAL CAPSULE 1 po qd OMEGA-3 FATTY ACIDS 61181937453 Active Tu Landeros MD Active METFORMIN HCL 1000 MG ORAL TABLET 1 po BID METFORMIN HCL 43167657830 Active Tu Landeros MD Active KLOR-CON 10 10 MEQ ORAL TABLET EXTENDED RELEASE 2 po qd POTASSIUM CHLORIDE 04907075479 Active Tu Landeros MD Active FUROSEMIDE 40 MG ORAL TABLET 1 po qd FUROSEMIDE 55956568322 Active Tu Landeros MD Active REQUIP 2 MG ORAL TABLET 1 po qHS PRN Restless legs ROPINIROLE HCL 92519833891 Active Tu Landeros MD Active REQUIP 2 MG ORAL TABLET Take one tablet at bedtime prn ROPINIROLE HCL 74991592887 No Longer Active Tu Landeros MD Active VENTOLIN HFA 108 (90 Base) MCG/ACT INHALATION AEROSOL SOLUTION 1-2 puffs every 4 hours if needed for cough/congestion ALBUTEROL SULFATE 15749188702 No Longer Active Ambika Aden APRN Active ZITHROMAX 250 MG ORAL TABLET 2 po today, then 1 po q days 2-5 AZITHROMYCIN 42662877101 No Longer Active Miranda Farah APRN Active FLONASE 50 MCG/ACT NASAL SUSPENSION 1 spray each nostril twice daily until bottle empty FLUTICASONE PROPIONATE 73602965177 No Longer Active Tu Landeros MD Active COLACE 100 MG ORAL CAPSULE 1 po BID PRN Constipation DOCUSATE SODIUM 55952305484 Active Tu Landeros MD Active TRUERESULT BLOOD GLUCOSE w/Device KIT test blood sugar twice daily dx 250.00 BLOOD GLUCOSE MONITORING SUPPL 65340559404 No Longer Active Tu Landeros MD Active TRUEDRAW LANCING DEVICE Test twice a day dx 250.0 LANCET DEVICES 65695292322 No Longer Active Tu Landeros MD Active PREDNISONE 20 MG ORAL TABLET 2 tablets once daily for 2 days, then 1 tablet once daily for 2 days PREDNISONE 29072854853 No Longer Active Tu Landerso MD Active DICLOFENAC SODIUM 50 MG ORAL TABLET DELAYED RELEASE 1 tablet by mouth three times a day as needed DICLOFENAC SODIUM 74055000153 No Longer Active Fab Morales DO Active EMBRACE BLOOD GLUCOSE TEST IN VITRO STRIP test blood sugar twice daily DX 250.0 GLUCOSE BLOOD 17491267433 No Longer Active Tu Landeros MD Active TRUETEST TEST IN VITRO STRIP test blood sugar three times daily dx: 250.00 GLUCOSE BLOOD 06783417273 No Longer Active Suze VOGEL Active TRUERESULT BLOOD GLUCOSE w/Device KIT use to test blood sugar tid dx: 250.00 BLOOD GLUCOSE MONITORING SUPPL 11200218529 No Longer Active Suzebianca VOGEL Active ALIGN 4 MG ORAL CAPSULE 1 tid PROBIOTIC PRODUCT 36342376031 No Longer Active Shaun Sy MD Active CIPRO 500 MG ORAL TABLET 1 bid x 14 days start 09-28-13 CIPROFLOXACIN HCL 30533021487 No Longer Active Shaun Sy MD Active TRAMADOL HCL 50 MG ORAL TABLET 1-2 tablets every 6 hours as needed for pain TRAMADOL HCL 13051911055 Active Tu Landeros MD Active HYDROCODONE-ACETAMINOPHEN 5-325 MG ORAL TABLET 1 tab by mouth every 6 hours as needed for pain HYDROCODONE-ACETAMINOPHEN 64531881579 No Longer Active Tu Landeros MD Active OMEPRAZOLE 20 MG ORAL CAPSULE DELAYED RELEASE 1 po q a.m. OMEPRAZOLE 01653344264 Active Tu Landeros MD Active GABAPENTIN 100 MG ORAL CAPSULE 1 po bid GABAPENTIN 11754991914 No Longer Active Tu Landeros MD Active B-12 100 MCG ORAL TABLET Take one by mouth daily CYANOCOBALAMIN 64222027587 No Longer Active Tu Landeros MD Active BACTRIM DS 800-160 MG ORAL TABLET 1 bid x 14 day start 09-28-13 SULFAMETHOXAZOLE-TRIMETHOPRIM 02465958377 No Longer Active Tu Landeros MD Active CARVEDILOL 12.5 MG ORAL TABLET 1 po BID CARVEDILOL 91123515902 Active Tu Landeros MD Active FENOFIBRATE 145 MG ORAL TABLET 1 po qd FENOFIBRATE 73949243209 No Longer Active JASPREET Perez Active OMEPRAZOLE 20 MG ORAL TABLET DELAYED RELEASE 1 PO 30 MIN BEFORE 1ST MEAL 2010 OMEPRAZOLE 99887677704 No Longer Active JASPREET Perez Active SIMVASTATIN 40 MG ORAL TABLET Take one by mouth daily SIMVASTATIN 44990238783 No Longer Active JASPREET Perez Active VENLAFAXINE HCL 75 MG ORAL TABLET 1 po BID VENLAFAXINE HCL 68919319955 No Longer Active JASPREET Perez Active CIPRO 500 MG ORAL TABLET 1 tablet by mouth twice daily CIPROFLOXACIN HCL 43505478065 No Longer Active Tu Landeros MD Active VENLAFAXINE HCL 37.5 MG ORAL TABLET 1 po BID VENLAFAXINE HCL 02573402279 No Longer Active Suze NUNOA Active LAMISIL 250 MG ORAL TABLET 1 po qd TERBINAFINE HCL 03535318182 No Longer Active Tu Landeros MD Active LORTAB 5-500 MG ORAL TABLET 1/2 to 1 tablet by mouth every 4 hours as needed for pain HYDROCODONE-ACETAMINOPHEN 64299872123 No Longer Active Tu Landeros MD Active HYDROCODONE-ACETAMINOPHEN 5-500 MG ORAL TABLET take one po Q 4-6 hours prn HYDROCODONE-ACETAMINOPHEN 41791855026 No Longer Active Tu Landeros MD Active BACTRIM DS 800-160 MG ORAL TABLET 1 po BID x 7 days SULFAMETHOXAZOLE-TRIMETHOPRIM 60383903914 No Longer Active Tu Landeros MD Active VENLAFAXINE HCL 75 MG ORAL TABLET 1 po BID VENLAFAXINE HCL 96229143627 No Longer Active Elvira Cervantes MD PhD Active TRAMADOL HCL 50 MG ORAL TABLET 1 tablets every 6 hours as needed for pain TRAMADOL HCL 22529147312 No Longer Active Tu Landeros MD Active ACCU-CHEDawson FASTCLIX LANCETS Use to check bloodsugar three times daily as needed LANCETS 25997446793 No Longer Active Tu Landeros MD Active ACCU-CHEDawson KEYONA PLUS IN VITRO STRIP Use for testing bloodsugars three times daily as needed GLUCOSE BLOOD 50562191483 No Longer Active Tu Landeros MD Active ACCU-CHEK KEYONA PLUS w/Device KIT Use for testing bloodsugars three times daily as needed BLOOD GLUCOSE MONITORING SUPPL 93083344696 No Longer Active Tu Landeros MD Active SPIRONOLACTONE 25 MG ORAL TABLET 0.5 tablet by mouth daily 09/09 SPIRONOLACTONE 47810439278 No Longer Active Tu Landeros MD Active ALPRAZOLAM 0.5 MG ORAL TABLET 1 tab every 6hrs as needed ALPRAZOLAM 00370041660 No Longer Active Tu Landeros MD Active AUGMENTIN 875-125 MG ORAL TABLET 1 tab by mouth twice daily with food AMOXICILLIN-POT CLAVULANATE 63990635470 No Longer Active Tu Landeros MD Active PREDNISONE 20 MG ORAL TABLET 2 tabs daily for 3 days, 1 tab daily for 3 days, 1/2 tab daily for 2 days PREDNISONE 06160249242 No Longer Active Tu Landeros MD Active XANAX 0.5 MG ORAL TABLET 1 tablet every 6 hrs prn ALPRAZOLAM 12423460884 No Longer Active Tu Landeros MD Active PREDNISONE 20 MG ORAL TABLET 2 tabs daily for 3 days, 1 tab daily for 3 days, 1/2 tab daily for 2 days PREDNISONE 86262887118 No Longer Active Tu Landeros MD Active TRIAMCINOLONE ACETONIDE 0.1 % EXTERNAL OINTMENT Apply to affected areas TID for up to 2 weeks TRIAMCINOLONE ACETONIDE 39714367375 No Longer Active Tu Landeros MD Active LORTAB 5-500 MG ORAL TABLET 1/2 to 1 tablet by mouth every 4 hours as needed for pain HYDROCODONE-ACETAMINOPHEN 90408133660 No Longer Active Tu Landeros MD Active MULTIVITAMINS TABS Take one by mouth daily MULTIPLE VITAMIN 65130510041 No Longer Active Tu Landeros MD Active MELATONIN 5 MG ORAL TABLET Take one by mouth daily MELATONIN 60065190641 No Longer Active Tu Landeros MD Active SOMA 350 MG ORAL TABLET 1 po q 6 hours prn spasm CARISOPRODOL 02242059760 No Longer Active Tu Landeros MD Active MECLIZINE HCL 25 MG ORAL TABLET CHEWABLE 1 four times a day as needed for dizziness MECLIZINE HCL 18319286768 No Longer Active Fab Morales DO Active ANGEL BREEZE 2 TEST IN VITRO DISK test tid prn GLUCOSE BLOOD 32269088665 No Longer Active Negra Scott RN Active REGLAN 10 MG ORAL TABLET 1 po TID PRN Nausea METOCLOPRAMIDE HCL 64115245552 No Longer Active Tu Landeros MD Active METFORMIN HCL 500 MG ORAL TABLET 1 PO BID METFORMIN HCL 21258667148 No Longer Active Tu Landeros MD Active AMBIEN 10 MG ORAL TABLET 1 tab by mouth at bedtime as needed for sleep 06/10 ZOLPIDEM TARTRATE 21891406343 No Longer Active Tu Landeros MD Active FLUOXETINE HCL 40 MG ORAL CAPSULE 1 po q day FLUOXETINE HCL 22076622373 No Longer Active Mayra Orwell Active TRILIPIX 135 MG ORAL CAPSULE DELAYED RELEASE 1 po qd CHOLINE FENOFIBRATE 99232426702 No Longer Active Tu Landeros MD Active AMBIEN 10 MG ORAL TABLET 1 tab by mouth at bedtime as needed for sleep 06/10 AMBIEN 10 MG ORAL TABLET 979456 ZOLPIDEM TARTRATE Inactive METFORMIN HCL 500 MG ORAL TABLET 1 PO BID METFORMIN HCL 500 MG ORAL TABLET 318483 METFORMIN HCL Inactive REGLAN 10 MG ORAL TABLET 1 po TID PRN Nausea REGLAN 10 MG ORAL TABLET 113086 METOCLOPRAMIDE HCL Inactive MECLIZINE HCL 25 MG ORAL TABLET CHEWABLE 1 four times a day as needed for dizziness MECLIZINE HCL 25 MG ORAL TABLET CHEWABLE 134461 MECLIZINE HCL Inactive SOMA 350 MG ORAL TABLET 1 po q 6 hours prn spasm SOMA 350 MG ORAL TABLET 010645 CARISOPRODOL Inactive MELATONIN 5 MG ORAL TABLET Take one by mouth daily MELATONIN 5 MG ORAL TABLET 545497 MELATONIN Inactive MULTIVITAMINS TABS Take one by mouth daily MULTIVITAMINS TABS MULTIPLE VITAMIN Inactive LORTAB 5-500 MG ORAL TABLET 1/2 to 1 tablet by mouth every 4 hours as needed for pain LORTAB 5-500 MG ORAL TABLET HYDROCODONE- ACETAMINOPHEN Inactive XANAX 0.5 MG ORAL TABLET 1 tablet every 6 hrs prn XANAX 0.5 MG ORAL TABLET 082994 ALPRAZOLAM Inactive AUGMENTIN 875-125 MG ORAL TABLET 1 tab by mouth twice daily with food AUGMENTIN 875-125 MG ORAL TABLET 426177 AMOXICILLIN-POT CLAVULANATE Inactive ALPRAZOLAM 0.5 MG ORAL TABLET 1 tab every 6hrs as needed ALPRAZOLAM 0.5 MG ORAL TABLET 678452 ALPRAZOLAM Inactive SPIRONOLACTONE 25 MG ORAL TABLET 0.5 tablet by mouth daily 09/09 SPIRONOLACTONE 25 MG ORAL TABLET 592702 SPIRONOLACTONE Inactive ACCU-CHEK KEYONA PLUS w/Device KIT [...] times daily as needed ACCU-CHEK FASTCLIX LANCETS 62869790475 LANCETS Inactive TRAMADOL HCL 50 MG ORAL TABLET 1 tablets every 6 hours as needed for pain TRAMADOL HCL 50 MG ORAL TABLET 979669 TRAMADOL HCL Inactive VENLAFAXINE HCL 75 MG ORAL TABLET 1 po BID VENLAFAXINE HCL 75 MG ORAL TABLET 918878 VENLAFAXINE HCL Inactive HYDROCODONE-ACETAMINOPHEN 5-500 MG ORAL TABLET take one po Q 4-6 hours prn HYDROCODONE-ACETAMINOPHEN 5-500 MG ORAL TABLET HYDROCODONE-ACETAMINOPHEN Inactive LORTAB 5-500 MG ORAL TABLET 1/2 to 1 tablet by mouth every 4 hours as needed for pain LORTAB 5-500 MG ORAL TABLET HYDROCODONE- ACETAMINOPHEN Inactive LAMISIL 250 MG ORAL TABLET 1 po qd LAMISIL 250 MG ORAL TABLET 053261 TERBINAFINE HCL Inactive VENLAFAXINE HCL 37.5 MG ORAL TABLET 1 po BID VENLAFAXINE HCL 37.5 MG ORAL TABLET 516503 VENLAFAXINE HCL Inactive CIPRO 500 MG ORAL TABLET 1 tablet by mouth twice daily CIPRO 500 MG ORAL TABLET 820581 CIPROFLOXACIN HCL Inactive VENLAFAXINE HCL 75 MG ORAL TABLET 1 po BID VENLAFAXINE HCL 75 MG ORAL TABLET 399359 VENLAFAXINE HCL Inactive SIMVASTATIN 40 MG ORAL TABLET Take one by mouth daily SIMVASTATIN 40 MG ORAL TABLET 893739 SIMVASTATIN Inactive OMEPRAZOLE 20 MG ORAL TABLET DELAYED RELEASE 1 PO 30 MIN BEFORE 1ST MEAL 2010 OMEPRAZOLE 20 MG ORAL TABLET DELAYED RELEASE 707747 OMEPRAZOLE Inactive FENOFIBRATE 145 MG ORAL TABLET 1 po qd FENOFIBRATE 145 MG ORAL TABLET 749740 FENOFIBRATE Inactive BACTRIM DS 800-160 MG ORAL TABLET 1 bid x 14 day start 09-28-13 BACTRIM DS 800-160 MG ORAL TABLET 386852 SULFAMETHOXAZOLE- TRIMETHOPRIM Inactive B-12 100 MCG ORAL TABLET Take one by mouth daily B-12 100 MCG ORAL TABLET CYANOCOBALAMIN Inactive GABAPENTIN 100 MG ORAL CAPSULE 1 po bid GABAPENTIN 100 MG ORAL CAPSULE 189215 GABAPENTIN Inactive HYDROCODONE-ACETAMINOPHEN 5-325 MG ORAL TABLET 1 tab by mouth every 6 hours as needed for pain HYDROCODONE-ACETAMINOPHEN 5-325 MG ORAL TABLET 850728 HYDROCODONE-ACETAMINOPHEN Inactive CIPRO 500 MG ORAL TABLET 1 bid x 14 days start 814 CIPRO 500 MG ORAL TABLET 648439 CIPROFLOXACIN HCL Inactive ALIGN 4 MG ORAL [...] SODIUM 50 MG ORAL TABLET DELAYED RELEASE 364978 DICLOFENAC SODIUM Inactive PREDNISONE 20 MG ORAL TABLET 2 tablets once daily for 2 days, then 1 tablet once daily for 2 days PREDNISONE 20 MG ORAL TABLET 079238 PREDNISONE Inactive TRUEDRAW LANCING DEVICE Test twice a day dx 250.0 TRUEDRAW LANCING DEVICE LANCET DEVICES Inactive TRUERESULT BLOOD GLUCOSE w/Device KIT test blood sugar twice daily dx 250.00 TRUERESULT BLOOD GLUCOSE w/Device KIT BLOOD GLUCOSE MONITORING SUPPL Inactive FLONASE 50 MCG/ACT NASAL SUSPENSION 1 spray each nostril twice daily until bottle empty FLONASE 50 MCG/ACT NASAL SUSPENSION 4802776 FLUTICASONE PROPIONATE Inactive VENTOLIN HFA 108 (90 Base) MCG/ACT INHALATION AEROSOL SOLUTION 1-2 puffs every 4 hours if needed for cough/congestion VENTOLIN HFA 108 (90 Base) MCG/ACT INHALATION AEROSOL SOLUTION ALBUTEROL SULFATE Inactive REQUIP 2 MG ORAL TABLET Take one tablet at bedtime prn REQUIP 2 MG ORAL TABLET 792972 ROPINIROLE HCL Inactive SUPER B COMPLEX/VITAMIN C ORAL TABLET 1 qd SUPER B COMPLEX/VITAMIN C ORAL TABLET 62223701109 B COMPLEX-C Inactive TRUEDRAW LANCING DEVICE test blood sugar twice daily dx: 250.00 TRUEDRAW LANCING DEVICE LANCET DEVICES Inactive TRUETEST TEST IN VITRO STRIP test blood sugar twice daily. DX 250.0 TRUETEST TEST IN VITRO STRIP GLUCOSE BLOOD Inactive CYCLOBENZAPRINE HCL 10 MG ORAL TABLET 1 po TID PRN Muscle Spasm CYCLOBENZAPRINE HCL 10 MG ORAL TABLET 190333 CYCLOBENZAPRINE HCL Inactive DICLOFENAC SODIUM 50 MG ORAL TABLET DELAYED RELEASE 1 po BID PRN Pain DICLOFENAC SODIUM 50 MG ORAL TABLET DELAYED RELEASE 985659 DICLOFENAC SODIUM Inactive DICLOFENAC SODIUM 75 MG ORAL TABLET DELAYED RELEASE 1 po BID PRN Pain DICLOFENAC SODIUM 75 MG ORAL TABLET DELAYED RELEASE 326780 DICLOFENAC SODIUM Inactive NASONEX 50 MCG/ACT NASAL SUSPENSION 2 actuations in each nostril q day 07/15 NASONEX 50 MCG/ACT NASAL SUSPENSION 4896231 MOMETASONE FUROATE Inactive GUAIFENESIN ER 600 MG ORAL TABLET EXTENDED RELEASE 12 HOUR 1 twice a day as needed for congestion GUAIFENESIN ER 600 MG ORAL TABLET EXTENDED RELEASE 12 HOUR GUAIFENESIN Inactive AZITHROMYCIN 250 MG ORAL TABLET 2 po qd x 1, then 1 po qd x 4 AZITHROMYCIN 250 MG ORAL TABLET 255442 AZITHROMYCIN Inactive PROMETHAZINE-CODEINE 6.25-10 MG/5ML ORAL SYRUP 5ml po q6hr PRN Cough PROMETHAZINE-CODEINE 6.25-10 MG/5ML ORAL SYRUP 828298 PROMETHAZINE-CODEINE Inactive TRILIPIX 135 MG ORAL CAPSULE DELAYED RELEASE 1 q hs TRILIPIX 135 MG ORAL CAPSULE DELAYED RELEASE 437215 CHOLINE FENOFIBRATE Inactive TRIAMCINOLONE ACETONIDE 0.1 % EXTERNAL OINTMENT Apply to affected areas TID for up to 2 weeks TRIAMCINOLONE ACETONIDE 0.1 % EXTERNAL OINTMENT 3916107 TRIAMCINOLONE ACETONIDE Inactive PREDNISONE 20 MG ORAL TABLET 2 tabs daily for 3 days, 1 tab daily for 3 days, 1/2 tab daily for 2 days PREDNISONE 20 MG ORAL TABLET 555785 PREDNISONE Inactive PREDNISONE 20 MG ORAL TABLET 2 tabs daily for 3 days, 1 tab daily for 3 days, 1/2 tab daily for 2 days PREDNISONE 20 MG ORAL TABLET 378860 PREDNISONE Inactive BACTRIM DS 800-160 MG ORAL TABLET 1 po BID x 7 days BACTRIM DS 800-160 MG ORAL TABLET 800710 SULFAMETHOXAZOLE-TRIMETHOPRIM Inactive ZITHROMAX 250 MG ORAL TABLET 2 po today, then 1 po q days 2-5 ZITHROMAX 250 MG ORAL TABLET 827534 AZITHROMYCIN Inactive PREDNISONE 20 MG ORAL TABLET 2 po qd x 5 days PREDNISONE 20 MG ORAL TABLET 817454 PREDNISONE Inactive Advance Directives Directive Description Start Date DISCUSSED WITH PATIENT -- NO DECISION MADE Immunizations Vaccine Administration Date Value Standard Description Seasonal influenza vaccine, injectable, containing preservative, for > 3 years old (Afluria, FluLaval, Fluzone, Fluvirin, Fluarix, Agriflu(>=18 yo)) Fluzone (>3 yrs.) [RYP034] Influenza, seasonal, injectable influenza immunization (Flu Vax) has been administered 02/22/2012 influenza virus vaccine, unspecified formulation Seasonal influenza vaccine, injectable, containing preservative, for > 3 years old (Afluria, FluLaval, Fluzone, Fluvirin, Fluarix, Agriflu(>=18 yo)) Fluzone (>3 yrs.) [JHF354] Influenza, seasonal, injectable Vital Signs Date Name [...] ... - Chemistry sodium, serum 141 mmol/L 610-742 9741/01/16 carbon dioxide, venous blood 28.3 mmol/L 21.0-32.0 [...] 6.7 % 4.3-6.0 cholesterol, serum 106 mg/dL 208-009 3648/01/16 triglyceride, serum, fasting 173 mg/dL 30-200 HDL [...] 6.4 % 4.3-6.0 sodium, serum 142 mmol/L 054-027 3368/07/16 carbon dioxide, venous blood 29.4 mmol/L 21.0-32.0 [...] Panel - Chemistry cholesterol, serum 170 mg/dL 043-122 4870/07/16 triglyceride, serum, fasting 266 mg/dL 30-200 HDL cholesterol, serum 42 mg/dL 32-60 LDL cholesterol, serum 75 mg/dL 0-130 Encounters Code Encounter Date Provider Facility CPT-85670 Level 4 Est. Patient 14:46:36 CDT Tu Landeros MD [facility] CPT-03222 Level 3 Est. Patient 10:28:05 CDT Tu Landeros MD [facility] CPT-75485 Level 3 Est. Patient 09:11:32 CDT Tu Landeros MD [facility] CPT-30456 Level 3 Est. Patient 10:13:19 DATA ENTRY OPERATOR Lesli Kellogg APRN [facility] CPT-32115 Level 4 Est. Patient 13:42:02 DATA ENTRY OPERATOR Tu Landeros MD [facility] CPT-25902 Level 3 Est. Patient 14:20:36 CDT Tu Landeros MD [facility] CPT-01137 Level 4 Est. Patient 14:28:34 CDT Tu Landeros MD [facility] CPT-51479 Level 3 Est. Patient 13:33:09 CDT Tu Landeros MD [facility] CPT-15948 Level 4 Est. Patient 14:29:21 CDT Tu Landeros MD [facility] CPT-77130 Level 4 Est. Patient 09:08:17 DATA ENTRY OPERATOR Tu Landeros MD [facility] CPT-30933 Level 4 Est. Patient 14:40:19 CDT Tu Landeros MD [facility] CPT-88483 Level 4 Est. Patient 14:06:04 DATA ENTRY OPERATOR Tu Landeros MD [facility] CPT-75556 Level 3 Est. Patient 14:05:18 DATA ENTRY OPERATOR Tu Landeros MD [facility] CPT-07859 Level 3 Est. Patient 10:06:54 DATA ENTRY OPERATOR Miranda Farah APRN [facility] CPT-34501 Level 4 Est. Patient 13:50:18 DATA ENTRY OPERATOR Tu Landeros MD [facility] CPT-91362 Level 3 Est. Patient 10:30:04 CDT Tu Landeros MD [facility] CPT-10067 Level 4 Est. Patient 11:03:38 CDT Tu Landeros MD [facility] CPT-73423 Level 3 Est. Patient 10:20:44 CDT Fab Morales DO [facility] CPT-55967 Level 4 Est. Patient 14:38:57 CDT Tu Landeros MD [facility] CPT-87348 Level 4 Est. Patient 14:27:39 DATA ENTRY OPERATOR Tu Landeros MD [facility] CPT-10440 Level 4 Est. Patient 09:45:25 CDT Tu Landeros MD [facility] CPT-68704 Level 4 Est. Patient 09:05:20 DATA ENTRY OPERATOR Tu Landeros MD [facility] CPT-69937 Level 4 Est. Patient 14:09:06 CDT Tu Landeros MD [facility] CPT-05498 Level 3 Est. Patient 13:36:54 CDT Tu Landeros MD [facility] CPT-50508 Level 3 Est. Patient 08:59:14 CDT Tu Landeros MD [facility] CPT-32129 Level 3 Est. Patient 13:48:35 CDT Fab Morales DO [facility] CPT-22223 Level 4 Est. Patient 10:05:48 CDT Tu Landeros MD [facility] CPT-20705 Level 3 Est. Patient 13:38:42 CDT Marek BANKS [facility] CPT-55029 Level 5 Est. Patient 08:08:39 CDT Jerrica FRANCIS [facility] CPT-99605 Level 4 Est. Patient 14:23:38 CDT Tu Landeros MD [facility] CPT-60234 Level 3 Est. Patient 11:44:04 CDT Tu Landeros MD [facility] CPT-85603 Level 3 Est. Patient 11:03:20 DATA ENTRY OPERATOR Tu Landeros MD [facility] CPT-73276 Level 3 Est. Patient 11:03:14 DATA ENTRY OPERATOR Tu Landeros MD [facility] CPT-67572 Level 3 Est. Patient 12:42:49 CDT Tu Landeros MD [facility] CPT-00441 Level 3 Est. Patient 11:52:06 CDT Tu Landeros MD [facility] CPT-92103 Level 3 Est. Patient 13:58:11 CDT Tu Landeros MD [facility] CPT-75200 Level 3 Est. Patient 17:50:07 CDT Fab Morales DO [facility] CPT-63448 Level 3 Est. Patient 12:06:29 CDT Elvira Cervantes MD PhD [facility] CPT-26981 Level 3 Est. Patient 15:50:32 CDT Tu Landeros MD [facility] CPT-31893 Level 4 Est. Patient 16:08:29 CDT [facility] [facility] CPT-40901 Level 3 Est. Patient 16:04:19 CDT Tu Landeros MD [facility] CPT-96338 Level 3 Est. Patient 11:22:30 DATA ENTRY OPERATOR Tu Landeros MD [facility] CPT-27982 Level 4 Est. Patient 16:24:02 DATA ENTRY OPERATOR Tu Landeros MD [facility] CPT-05432 Level 3 Est. Patient 17:21:23 DATA ENTRY OPERATOR Tu Landeros MD [facility] Procedures Code Procedure Name Date Entry Date Standard Description CPT-G0439 Subsequent Annual Wellness Exam 14:46:36 CDT CPT-91095 Shoulder, right, comp min 2V - XRAY USE ONLY 13:50:22 CDT CPT-G0009 Administration of Pneumococcal Vaccine 15:08:26 CDT CPT-75549 Prevnar 13 Intramuscular Suspension 15:08:26 CDT 10/08 CPT-G0439 Subsequent Annual Wellness Exam 14:29:22 CDT CPT-41429 Venipuncture Draw Fee 13:15:35 CDT CPT-21864 Magnesium - LAB USE ONLY 11:14:20 DATA ENTRY OPERATOR CPT-11249 Lipid - LAB USE ONLY 11:14:20 DATA ENTRY OPERATOR CPT-59110 HGBA1C - LAB USE ONLY 11:14:20 DATA ENTRY OPERATOR CPT-34082 CMP - LAB USE ONLY 11:14:19 DATA ENTRY OPERATOR CPT-60187 CBC - LAB USE ONLY 11:14:19 DATA ENTRY OPERATOR CPT-28736 Venipuncture Draw Fee 11:14:18 DATA ENTRY OPERATOR CPT-13263 First Vx - Ix admin for Medicare patients 16:46:52 CDT CPT-51453 Fluzone Preservative Free Intramuscular Suspension 16:46 :51 CDT CPT-00334 CBC - LAB USE ONLY 17:14:46 CDT CPT-34556 HGBA1C - LAB USE ONLY 17:14:46 CDT CPT-42869 Venipuncture Draw Fee 17:14:46 CDT CPT-G0438 Initial Annual Wellness Exam 14:13:04 CDT CPT-24253 Breathing Tx 10:06:54 DATA ENTRY OPERATOR CPT-23736 Postop F/U Visit 10:02:45 CDT CPT-LR Lesion Removal 09:02:56 CDT CPT-JTINJ Asp/Joint Injection 15:51:27 DATA ENTRY OPERATOR CPT-OV Office Visit 15:52:02 DATA ENTRY OPERATOR CPT-OV Office Visit 15:45:11 CDT CPT-000 Give Zostavax 14:09:06 CDT CPT-07291 Administration single or combination vaccine inc oral 15 :19:04 CDT CPT-07357 Zoster Vaccine (Zostavax) 15:19:04 CDT CPT-17306 Administration single or combination vaccine inc oral 20 :51:03 CDT CPT-98118 Influenza split virus > age 3 20:51:03 CDT CPT-37118 No Charge Offi Visit 14:52:03 CDT CPT-OV Office Visit 14:57:43 CDT CPT-OV Office Visit 15:22:32 CDT CPT-04875 Administration single or combination vaccine inc oral 11 :33:15 CDT CPT-94914 Influenza split virus > age 3 11:33:15 CDT
--- OUTSIDE RECORDS SUMMARY | 2018-04-25 12:09 | XMS REPORT | Clinical Summary ---
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 Acute upper respiratory infections of unspecified site [...] 1 GM ORAL CAPSULE 1 po qd [id number] ETHYL ESTERS 36475159510 Active Tu Landeros MD Active TRILIPIX 135 MG ORAL CAPSULE DELAYED RELEASE 1 q hs CHOLINE FENOFIBRATE 82171218722 No Longer Active Cynthia NUNOA Active TRIAMCINOLONE ACETONIDE 0.1 % EXTERNAL CREAM Apply to affected area TID for up to 2 weeks TRIAMCINOLONE ACETONIDE 13452202663 Active Tu Landeros MD Active INDOMETHACIN 50 MG ORAL CAPSULE 1 po TID PRN Pain INDOMETHACIN 71022469924 Active Tu Landeros MD Active PROMETHAZINE-CODEINE 6.25-10 MG/5ML ORAL SYRUP 5ml po q6hr PRN Cough PROMETHAZINE-CODEINE 37933498196 No Longer Active Tu Landeros MD Active AZITHROMYCIN 250 MG ORAL TABLET 2 po qd x 1, then 1 po qd x 4 AZITHROMYCIN 37751980010 No Longer Active Tu Landeros MD Active GUAIFENESIN ER 600 MG ORAL TABLET EXTENDED RELEASE 12 HOUR 1 twice a day as needed for congestion GUAIFENESIN 77828455184 No Longer Active Tu Landeros MD Active PREDNISONE 20 MG ORAL TABLET 2 po qd x 5 days PREDNISONE 86726493363 No Longer Active Tu Landeros MD Active FLUTICASONE PROPIONATE 50 MCG/ACT NASAL SUSPENSION 2 sprays/nostril qd PRN Congestion/Allergies FLUTICASONE PROPIONATE 13533880542 Active Tu Landeros MD Active NASONEX 50 MCG/ACT NASAL SUSPENSION 2 actuations in each nostril q day 07/15 MOMETASONE FUROATE 63043692241 No Longer Active Tu Landeros MD Active MAGNESIUM OXIDE 400 MG ORAL TABLET 1 po BID MAGNESIUM OXIDE 44774752828 Active Tu Landeros MD Active SIMVASTATIN 20 MG ORAL TABLET 0.5 po qHS SIMVASTATIN 43825024289 Active Tu Landeros MD Active DICLOFENAC SODIUM 75 MG ORAL TABLET DELAYED RELEASE 1 po BID PRN Pain DICLOFENAC SODIUM 25695143166 No Longer Active Tu Landeros MD Active GABAPENTIN 100 MG ORAL CAPSULE 1 po TID GABAPENTIN 14647610421 Active Tu Landeros MD Active DICLOFENAC SODIUM 50 MG ORAL TABLET DELAYED RELEASE 1 po BID PRN Pain DICLOFENAC SODIUM 07776920223 No Longer Active Tu Landeros MD Active CYCLOBENZAPRINE HCL 10 MG ORAL TABLET 1 po TID PRN Muscle Spasm CYCLOBENZAPRINE HCL 05119233595 No Longer Active Tu Landeros MD Active INVOKANA 100 MG ORAL TABLET 1 po qd CANAGLIFLOZIN 93623847191 Active José Luis Becerra MD Active GLIPIZIDE 5 MG ORAL TABLET 1 po qd GLIPIZIDE 09756003755 No Longer Active Tu Landeros MD Active VENLAFAXINE HCL 75 MG ORAL TABLET 1 po BID VENLAFAXINE HCL 41875141401 Active Tu Lnaderos MD Active GLIMEPIRIDE 1 MG ORAL TABLET 1 po qd GLIMEPIRIDE 45211368520 No Longer Active Tu Landeros MD Active TRUE METRIX BLOOD GLUCOSE TEST IN VITRO STRIP Test blood sugar BID Dx: E11.9 GLUCOSE BLOOD 19034212511 Active Tu Landeros MD Active TRUE METRIX AIR GLUCOSE METER w/Device KIT Test blood glucose BID Dx: E11.9 BLOOD GLUCOSE MONITORING SUPPL 82494038818 Active Tu Landeros MD Active TRUETEST TEST IN VITRO STRIP test blood sugar twice daily. DX 250.0 GLUCOSE BLOOD 82490934830 No Longer Active Mirna Stanley LPN Active TRUEDRAW LANCING DEVICE test blood sugar twice daily dx: 250.00 LANCET DEVICES 26426307523 No Longer Active Mirna Stanley LPN Active ENALAPRIL MALEATE 20 MG ORAL TABLET 2 po qd ENALAPRIL MALEATE 96705882983 Active Tu Landeros MD Active SUPER B COMPLEX/VITAMIN C ORAL TABLET 1 qd B COMPLEX- C 86176418342 No Longer Active Tu Landeros MD Active ASPIRIN EC 81 MG ORAL TABLET DELAYED RELEASE 1 po qd ASPIRIN 21412506854 Active Tu Landeros MD Active GLUCOSAMINE 500 MG TABS 2 po qd GLUCOSAMINE Active Tu Landeros MD Active FISH OIL 1000 MG ORAL CAPSULE 1 po qd OMEGA-3 FATTY ACIDS 96115234291 Active Tu Landeros MD Active METFORMIN HCL 1000 MG ORAL TABLET 1 po BID METFORMIN HCL 34816933834 Active Tu Landeros MD Active KLOR-CON 10 10 MEQ ORAL TABLET EXTENDED RELEASE 2 po qd POTASSIUM CHLORIDE 86179489918 Active Tu Landeros MD Active FUROSEMIDE 40 MG ORAL TABLET 1 po qd FUROSEMIDE 36746356522 Active Tu Landeros MD Active REQUIP 2 MG ORAL TABLET 1 po qHS PRN Restless legs ROPINIROLE HCL 30859514334 Active Tu Landeros MD Active REQUIP 2 MG ORAL TABLET Take one tablet at bedtime prn ROPINIROLE HCL 33446239519 No Longer Active Tu Landeros MD Active VENTOLIN HFA 108 (90 Base) MCG/ACT INHALATION AEROSOL SOLUTION 1-2 puffs every 4 hours if needed for cough/congestion ALBUTEROL SULFATE 76897647487 No Longer Active Ambika Aden APRN Active ZITHROMAX 250 MG ORAL TABLET 2 po today, then 1 po q days 2-5 AZITHROMYCIN 43794442160 No Longer Active Miranda Farah APRN Active FLONASE 50 MCG/ACT NASAL SUSPENSION 1 spray each nostril twice daily until bottle empty FLUTICASONE PROPIONATE 61308805290 No Longer Active Tu Landeros MD Active COLACE 100 MG ORAL CAPSULE 1 po BID PRN Constipation DOCUSATE SODIUM 44488485578 Active Tu Landeros MD Active TRUERESULT BLOOD GLUCOSE w/Device KIT test blood sugar twice daily dx 250.00 BLOOD GLUCOSE MONITORING SUPPL 93879400125 No Longer Active Tu Landeros MD Active TRUEDRAW LANCING DEVICE Test twice a day dx 250.0 LANCET DEVICES 43383694740 No Longer Active Tu Landeros MD Active PREDNISONE 20 MG ORAL TABLET 2 tablets once daily for 2 days, then 1 tablet once daily for 2 days PREDNISONE 38103167363 No Longer Active Tu Landeros MD Active DICLOFENAC SODIUM 50 MG ORAL TABLET DELAYED RELEASE 1 tablet by mouth three times a day as needed DICLOFENAC SODIUM 62882590644 No Longer Active Fab Morales DO Active EMBRACE BLOOD GLUCOSE TEST IN VITRO STRIP test blood sugar twice daily DX 250.0 GLUCOSE BLOOD 54812609928 No Longer Active Tu Landeros MD Active TRUETEST TEST IN VITRO STRIP test blood sugar three times daily dx: 250.00 GLUCOSE BLOOD 55870981729 No Longer Active Suze VOGEL Active TRUERESULT BLOOD GLUCOSE w/Device KIT use to test blood sugar tid dx: 250.00 BLOOD GLUCOSE MONITORING SUPPL 88182117714 No Longer Active Suzebianca VOGEL Active ALIGN 4 MG ORAL CAPSULE 1 tid PROBIOTIC PRODUCT 11094187728 No Longer Active Shaun Sy MD Active CIPRO 500 MG ORAL TABLET 1 bid x 14 days start 09-28-13 CIPROFLOXACIN HCL 36289247341 No Longer Active Shaun Sy MD Active TRAMADOL HCL 50 MG ORAL TABLET 1-2 tablets every 6 hours as needed for pain TRAMADOL HCL 35493201617 Active Tu Landeros MD Active HYDROCODONE-ACETAMINOPHEN 5-325 MG ORAL TABLET 1 tab by mouth every 6 hours as needed for pain HYDROCODONE-ACETAMINOPHEN 34583562135 No Longer Active Tu Landeros MD Active OMEPRAZOLE 20 MG ORAL CAPSULE DELAYED RELEASE 1 po q a.m. OMEPRAZOLE 55842530088 Active Tu Landeros MD Active GABAPENTIN 100 MG ORAL CAPSULE 1 po bid GABAPENTIN 15180078504 No Longer Active Tu Landeros MD Active B-12 100 MCG ORAL TABLET Take one by mouth daily CYANOCOBALAMIN 14765937445 No Longer Active Tu Landeros MD Active BACTRIM DS 800-160 MG ORAL TABLET 1 bid x 14 day start 09-28-13 SULFAMETHOXAZOLE-TRIMETHOPRIM 49928436658 No Longer Active Tu Landeros MD Active CARVEDILOL 12.5 MG ORAL TABLET 1 po BID CARVEDILOL 50109254042 Active Tu Landeros MD Active FENOFIBRATE 145 MG ORAL TABLET 1 po qd FENOFIBRATE 84239811831 No Longer Active JASPREET Perez Active OMEPRAZOLE 20 MG ORAL TABLET DELAYED RELEASE 1 PO 30 MIN BEFORE 1ST MEAL 2010 OMEPRAZOLE 63312464801 No Longer Active JASPREET Perez Active SIMVASTATIN 40 MG ORAL TABLET Take one by mouth daily SIMVASTATIN 13110246096 No Longer Active JASPREET Perez Active VENLAFAXINE HCL 75 MG ORAL TABLET 1 po BID VENLAFAXINE HCL 79907061169 No Longer Active JASPREET Perez Active CIPRO 500 MG ORAL TABLET 1 tablet by mouth twice daily CIPROFLOXACIN HCL 37399352382 No Longer Active Tu Landeros MD Active VENLAFAXINE HCL 37.5 MG ORAL TABLET 1 po BID VENLAFAXINE HCL 16662594449 No Longer Active Suze NUNOA Active LAMISIL 250 MG ORAL TABLET 1 po qd TERBINAFINE HCL 06797206834 No Longer Active Tu Landeros MD Active LORTAB 5-500 MG ORAL TABLET 1/2 to 1 tablet by mouth every 4 hours as needed for pain HYDROCODONE-ACETAMINOPHEN 29756260599 No Longer Active Tu Landeros MD Active HYDROCODONE-ACETAMINOPHEN 5-500 MG ORAL TABLET take one po Q 4-6 hours prn HYDROCODONE-ACETAMINOPHEN 95274393773 No Longer Active Tu Landeros MD Active BACTRIM DS 800-160 MG ORAL TABLET 1 po BID x 7 days SULFAMETHOXAZOLE-TRIMETHOPRIM 07645492024 No Longer Active Tu Landeros MD Active VENLAFAXINE HCL 75 MG ORAL TABLET 1 po BID VENLAFAXINE HCL 77631972447 No Longer Active Elvira Cervantes MD PhD Active TRAMADOL HCL 50 MG ORAL TABLET 1 tablets every 6 hours as needed for pain TRAMADOL HCL 57942063382 No Longer Active Tu Landeros MD Active ACCU-CHED[place]son FASTCLIX LANCETS Use to check bloodsugar three times daily as needed LANCETS 85800788329 No Longer Active Tu Landeros MD Active ACCU-CHED[place]son KEYONA PLUS IN VITRO STRIP Use for testing bloodsugars three times daily as needed GLUCOSE BLOOD 63978714764 No Longer Active Tu Landeros MD Active ACCU-CHEK KEYONA PLUS w/Device KIT Use for testing bloodsugars three times daily as needed BLOOD GLUCOSE MONITORING SUPPL 07769611139 No Longer Active Tu Landeros MD Active SPIRONOLACTONE 25 MG ORAL TABLET 0.5 tablet by mouth daily 09/09 SPIRONOLACTONE 54334305773 No Longer Active Tu Landeros MD Active ALPRAZOLAM 0.5 MG ORAL TABLET 1 tab every 6hrs as needed ALPRAZOLAM 33380863345 No Longer Active Tu Landeros MD Active AUGMENTIN 875-125 MG ORAL TABLET 1 tab by mouth twice daily with food AMOXICILLIN-POT CLAVULANATE 81345212614 No Longer Active Tu Landeros MD Active PREDNISONE 20 MG ORAL TABLET 2 tabs daily for 3 days, 1 tab daily for 3 days, 1/2 tab daily for 2 days PREDNISONE 47951550112 No Longer Active Tu Landeros MD Active XANAX 0.5 MG ORAL TABLET 1 tablet every 6 hrs prn ALPRAZOLAM 62778730745 No Longer Active Tu Landeros MD Active PREDNISONE 20 MG ORAL TABLET 2 tabs daily for 3 days, 1 tab daily for 3 days, 1/2 tab daily for 2 days PREDNISONE 82791913208 No Longer Active Tu Landeros MD Active TRIAMCINOLONE ACETONIDE 0.1 % EXTERNAL OINTMENT Apply to affected areas TID for up to 2 weeks TRIAMCINOLONE ACETONIDE 78667527325 No Longer Active Tu Landeros MD Active LORTAB 5-500 MG ORAL TABLET 1/2 to 1 tablet by mouth every 4 hours as needed for pain HYDROCODONE-ACETAMINOPHEN 75976382105 No Longer Active Tu Landeros MD Active MULTIVITAMINS TABS Take one by mouth daily MULTIPLE VITAMIN 60245601950 No Longer Active Tu Landeros MD Active MELATONIN 5 MG ORAL TABLET Take one by mouth daily MELATONIN 47667373658 No Longer Active Tu Landeros MD Active SOMA 350 MG ORAL TABLET 1 po q 6 hours prn spasm CARISOPRODOL 51252276836 No Longer Active Tu Landeros MD Active MECLIZINE HCL 25 MG ORAL TABLET CHEWABLE 1 four times a day as needed for dizziness MECLIZINE HCL 51402376042 No Longer Active Fab Morales DO Active ANGEL BREEZE 2 TEST IN VITRO DISK test tid prn GLUCOSE BLOOD 13678846378 No Longer Active Negra Scott RN Active REGLAN 10 MG ORAL TABLET 1 po TID PRN Nausea METOCLOPRAMIDE HCL 14756078282 No Longer Active Tu Landeros MD Active METFORMIN HCL 500 MG ORAL TABLET 1 PO BID METFORMIN HCL 54420733579 No Longer Active Tu Landeros MD Active AMBIEN 10 MG ORAL TABLET 1 tab by mouth at bedtime as needed for sleep 06/10 ZOLPIDEM TARTRATE 67353454453 No Longer Active Tu Landeros MD Active FLUOXETINE HCL 40 MG ORAL CAPSULE 1 po q day FLUOXETINE HCL 16654005414 No Longer Active Mayra Imperial Active TRILIPIX 135 MG ORAL CAPSULE DELAYED RELEASE 1 po qd CHOLINE FENOFIBRATE 45091126636 No Longer Active Tu Landeros MD Active AMBIEN 10 MG ORAL TABLET 1 tab by mouth at bedtime as needed for sleep 06/10 AMBIEN 10 MG ORAL TABLET 448039 ZOLPIDEM TARTRATE Inactive METFORMIN HCL 500 MG ORAL TABLET 1 PO BID METFORMIN HCL 500 MG ORAL TABLET 212719 METFORMIN HCL Inactive REGLAN 10 MG ORAL TABLET 1 po TID PRN Nausea REGLAN 10 MG ORAL TABLET 365278 METOCLOPRAMIDE HCL Inactive MECLIZINE HCL 25 MG ORAL TABLET CHEWABLE 1 four times a day as needed for dizziness MECLIZINE HCL 25 MG ORAL TABLET CHEWABLE 954292 MECLIZINE HCL Inactive SOMA 350 MG ORAL TABLET 1 po q 6 hours prn spasm SOMA 350 MG ORAL TABLET 597369 CARISOPRODOL Inactive MELATONIN 5 MG ORAL TABLET Take one by mouth daily MELATONIN 5 MG ORAL TABLET 744076 MELATONIN Inactive MULTIVITAMINS TABS Take one by mouth daily MULTIVITAMINS TABS MULTIPLE VITAMIN Inactive LORTAB 5-500 MG ORAL TABLET 1/2 to 1 tablet by mouth every 4 hours as needed for pain LORTAB 5-500 MG ORAL TABLET HYDROCODONE- ACETAMINOPHEN Inactive XANAX 0.5 MG ORAL TABLET 1 tablet every 6 hrs prn XANAX 0.5 MG ORAL TABLET 777225 ALPRAZOLAM Inactive AUGMENTIN 875-125 MG ORAL TABLET 1 tab by mouth twice daily with food AUGMENTIN 875-125 MG ORAL TABLET 602527 AMOXICILLIN-POT CLAVULANATE Inactive ALPRAZOLAM 0.5 MG ORAL TABLET 1 tab every 6hrs as needed ALPRAZOLAM 0.5 MG ORAL TABLET 890101 ALPRAZOLAM Inactive SPIRONOLACTONE 25 MG ORAL TABLET 0.5 tablet by mouth daily 09/09 SPIRONOLACTONE 25 MG ORAL TABLET 875137 SPIRONOLACTONE Inactive ACCU-CHEK KEYONA PLUS w/Device KIT [...] times daily as needed ACCU-CHEK FASTCLIX LANCETS 94170756067 LANCETS Inactive TRAMADOL HCL 50 MG ORAL TABLET 1 tablets every 6 hours as needed for pain TRAMADOL HCL 50 MG ORAL TABLET 234618 TRAMADOL HCL Inactive VENLAFAXINE HCL 75 MG ORAL TABLET 1 po BID VENLAFAXINE HCL 75 MG ORAL TABLET 689006 VENLAFAXINE HCL Inactive HYDROCODONE-ACETAMINOPHEN 5-500 MG ORAL TABLET take one po Q 4-6 hours prn HYDROCODONE-ACETAMINOPHEN 5-500 MG ORAL TABLET HYDROCODONE-ACETAMINOPHEN Inactive LORTAB 5-500 MG ORAL TABLET 1/2 to 1 tablet by mouth every 4 hours as needed for pain LORTAB 5-500 MG ORAL TABLET HYDROCODONE- ACETAMINOPHEN Inactive LAMISIL 250 MG ORAL TABLET 1 po qd LAMISIL 250 MG ORAL TABLET 589960 TERBINAFINE HCL Inactive VENLAFAXINE HCL 37.5 MG ORAL TABLET 1 po BID VENLAFAXINE HCL 37.5 MG ORAL TABLET 107155 VENLAFAXINE HCL Inactive CIPRO 500 MG ORAL TABLET 1 tablet by mouth twice daily CIPRO 500 MG ORAL TABLET 882064 CIPROFLOXACIN HCL Inactive VENLAFAXINE HCL 75 MG ORAL TABLET 1 po BID VENLAFAXINE HCL 75 MG ORAL TABLET 304911 VENLAFAXINE HCL Inactive SIMVASTATIN 40 MG ORAL TABLET Take one by mouth daily SIMVASTATIN 40 MG ORAL TABLET 869251 SIMVASTATIN Inactive OMEPRAZOLE 20 MG ORAL TABLET DELAYED RELEASE 1 PO 30 MIN BEFORE 1ST MEAL 2010 OMEPRAZOLE 20 MG ORAL TABLET DELAYED RELEASE 212946 OMEPRAZOLE Inactive FENOFIBRATE 145 MG ORAL TABLET 1 po qd FENOFIBRATE 145 MG ORAL TABLET 568333 FENOFIBRATE Inactive BACTRIM DS 800-160 MG ORAL TABLET 1 bid x 14 day start 09-28-13 BACTRIM DS 800-160 MG ORAL TABLET 286418 SULFAMETHOXAZOLE- TRIMETHOPRIM Inactive B-12 100 MCG ORAL TABLET Take one by mouth daily B-12 100 MCG ORAL TABLET CYANOCOBALAMIN Inactive GABAPENTIN 100 MG ORAL CAPSULE 1 po bid GABAPENTIN 100 MG ORAL CAPSULE 013954 GABAPENTIN Inactive HYDROCODONE-ACETAMINOPHEN 5-325 MG ORAL TABLET 1 tab by mouth every 6 hours as needed for pain HYDROCODONE-ACETAMINOPHEN 5-325 MG ORAL TABLET 048161 HYDROCODONE-ACETAMINOPHEN Inactive CIPRO 500 MG ORAL TABLET 1 bid x 14 days start 814 CIPRO 500 MG ORAL TABLET 211232 CIPROFLOXACIN HCL Inactive ALIGN 4 MG ORAL [...] SODIUM 50 MG ORAL TABLET DELAYED RELEASE 340066 DICLOFENAC SODIUM Inactive PREDNISONE 20 MG ORAL TABLET 2 tablets once daily for 2 days, then 1 tablet once daily for 2 days PREDNISONE 20 MG ORAL TABLET 655552 PREDNISONE Inactive TRUEDRAW LANCING DEVICE Test twice a day dx 250.0 TRUEDRAW LANCING DEVICE LANCET DEVICES Inactive TRUERESULT BLOOD GLUCOSE w/Device KIT test blood sugar twice daily dx 250.00 TRUERESULT BLOOD GLUCOSE w/Device KIT BLOOD GLUCOSE MONITORING SUPPL Inactive FLONASE 50 MCG/ACT NASAL SUSPENSION 1 spray each nostril twice daily until bottle empty FLONASE 50 MCG/ACT NASAL SUSPENSION 7127445 FLUTICASONE PROPIONATE Inactive VENTOLIN HFA 108 (90 Base) MCG/ACT INHALATION AEROSOL SOLUTION 1-2 puffs every 4 hours if needed for cough/congestion VENTOLIN HFA 108 (90 Base) MCG/ACT INHALATION AEROSOL SOLUTION ALBUTEROL SULFATE Inactive REQUIP 2 MG ORAL TABLET Take one tablet at bedtime prn REQUIP 2 MG ORAL TABLET 283875 ROPINIROLE HCL Inactive SUPER B COMPLEX/VITAMIN C ORAL TABLET 1 qd SUPER B COMPLEX/VITAMIN C ORAL TABLET 33324409126 B COMPLEX-C Inactive TRUEDRAW LANCING DEVICE test blood sugar twice daily dx: 250.00 TRUEDRAW LANCING DEVICE LANCET DEVICES Inactive TRUETEST TEST IN VITRO STRIP test blood sugar twice daily. DX 250.0 TRUETEST TEST IN VITRO STRIP GLUCOSE BLOOD Inactive CYCLOBENZAPRINE HCL 10 MG ORAL TABLET 1 po TID PRN Muscle Spasm CYCLOBENZAPRINE HCL 10 MG ORAL TABLET 808356 CYCLOBENZAPRINE HCL Inactive DICLOFENAC SODIUM 50 MG ORAL TABLET DELAYED RELEASE 1 po BID PRN Pain DICLOFENAC SODIUM 50 MG ORAL TABLET DELAYED RELEASE 530263 DICLOFENAC SODIUM Inactive DICLOFENAC SODIUM 75 MG ORAL TABLET DELAYED RELEASE 1 po BID PRN Pain DICLOFENAC SODIUM 75 MG ORAL TABLET DELAYED RELEASE 076988 DICLOFENAC SODIUM Inactive NASONEX 50 MCG/ACT NASAL SUSPENSION 2 actuations in each nostril q day 07/15 NASONEX 50 MCG/ACT NASAL SUSPENSION 9458008 MOMETASONE FUROATE Inactive GUAIFENESIN ER 600 MG ORAL TABLET EXTENDED RELEASE 12 HOUR 1 twice a day as needed for congestion GUAIFENESIN ER 600 MG ORAL TABLET EXTENDED RELEASE 12 HOUR GUAIFENESIN Inactive AZITHROMYCIN 250 MG ORAL TABLET 2 po qd x 1, then 1 po qd x 4 AZITHROMYCIN 250 MG ORAL TABLET 544194 AZITHROMYCIN Inactive PROMETHAZINE-CODEINE 6.25-10 MG/5ML ORAL SYRUP 5ml po q6hr PRN Cough PROMETHAZINE-CODEINE 6.25-10 MG/5ML ORAL SYRUP 957356 PROMETHAZINE-CODEINE Inactive TRILIPIX 135 MG ORAL CAPSULE DELAYED RELEASE 1 q hs TRILIPIX 135 MG ORAL CAPSULE DELAYED RELEASE 701076 CHOLINE FENOFIBRATE Inactive TRIAMCINOLONE ACETONIDE 0.1 % EXTERNAL OINTMENT Apply to affected areas TID for up to 2 weeks TRIAMCINOLONE ACETONIDE 0.1 % EXTERNAL OINTMENT 5470206 TRIAMCINOLONE ACETONIDE Inactive PREDNISONE 20 MG ORAL TABLET 2 tabs daily for 3 days, 1 tab daily for 3 days, 1/2 tab daily for 2 days PREDNISONE 20 MG ORAL TABLET 333778 PREDNISONE Inactive PREDNISONE 20 MG ORAL TABLET 2 tabs daily for 3 days, 1 tab daily for 3 days, 1/2 tab daily for 2 days PREDNISONE 20 MG ORAL TABLET 601509 PREDNISONE Inactive BACTRIM DS 800-160 MG ORAL TABLET 1 po BID x 7 days BACTRIM DS 800-160 MG ORAL TABLET 518908 SULFAMETHOXAZOLE-TRIMETHOPRIM Inactive ZITHROMAX 250 MG ORAL TABLET 2 po today, then 1 po q days 2-5 ZITHROMAX 250 MG ORAL TABLET 341949 AZITHROMYCIN Inactive PREDNISONE 20 MG ORAL TABLET 2 po qd x 5 days PREDNISONE 20 MG ORAL TABLET 150577 PREDNISONE Inactive Advance Directives Directive Description Start Date DISCUSSED WITH PATIENT -- NO DECISION MADE Immunizations Vaccine Administration Date Value Standard Description Seasonal influenza vaccine, injectable, containing preservative, for > 3 years old (Afluria, FluLaval, Fluzone, Fluvirin, Fluarix, Agriflu(>=18 yo)) Fluzone (>3 yrs.) [[id number]] Influenza, seasonal, injectable influenza immunization (Flu Vax) has been administered 02/22/2012 influenza virus vaccine, unspecified formulation Seasonal influenza vaccine, injectable, containing preservative, for > 3 years old (Afluria, FluLaval, Fluzone, Fluvirin, Fluarix, Agriflu(>=18 yo)) Fluzone (>3 yrs.) [[id number]] Influenza, seasonal, injectable Vital Signs Date Name [...] ... - Chemistry sodium, serum 141 mmol/L 245-884 5824/01/16 carbon dioxide, venous blood 28.3 mmol/L 21.0-32.0 [...] 6.7 % 4.3-6.0 cholesterol, serum 106 mg/dL 776-649 7281/01/16 triglyceride, serum, fasting 173 mg/dL 30-200 HDL [...] Magnesium - Chemistry sodium, serum 142 mmol/L 311-592 4774/07/16 carbon dioxide, venous blood 29.4 mmol/L 21.0-32.0 [...] Panel - Chemistry cholesterol, serum 170 mg/dL 807-745 3607/07/16 triglyceride, serum, fasting 266 mg/dL 30-200 HDL cholesterol, serum 42 mg/dL 32-60 LDL cholesterol, serum 75 mg/dL 0-130 Encounters Code Encounter Date Provider Facility CPT-34800 Level 4 Est. Patient 14:46:36 CDT Tu Landeros MD [facility] CPT-67937 Level 3 Est. Patient 10:28:05 CDT Tu Landeros MD [facility] CPT-45818 Level 3 Est. Patient 09:11:32 CDT Tu Landeros MD [facility] CPT-65480 Level 3 Est. Patient 10:13:19 PHARMACY DATA ANALYST Lesli Kellogg APRN [facility] CPT-87825 Level 4 Est. Patient 13:42:02 PHARMACY DATA ANALYST Tu Landeros MD [facility] CPT-70185 Level 3 Est. Patient 14:20:36 CDT Tu Landeros MD [facility] CPT-70197 Level 4 Est. Patient 14:28:34 CDT Tu Landeros MD [facility] CPT-56617 Level 3 Est. Patient 13:33:09 CDT Tu Landeros MD [facility] CPT-48266 Level 4 Est. Patient 14:29:21 CDT Tu Landeros MD [facility] CPT-78330 Level 4 Est. Patient 09:08:17 PHARMACY DATA ANALYST Tu Landeros MD [facility] CPT-51197 Level 4 Est. Patient 14:40:19 CDT Tu Landeros MD [facility] CPT-73124 Level 4 Est. Patient 14:06:04 PHARMACY DATA ANALYST Tu Landeros MD [facility] CPT-49085 Level 3 Est. Patient 14:05:18 PHARMACY DATA ANALYST Tu Landeros MD [facility] CPT-86920 Level 3 Est. Patient 10:06:54 PHARMACY DATA ANALYST Miranda Farah APRN [facility] CPT-84008 Level 4 Est. Patient 13:50:18 PHARMACY DATA ANALYST Tu Landeros MD [facility] CPT-12948 Level 3 Est. Patient 10:30:04 CDT Tu Landeros MD [facility] CPT-19672 Level 4 Est. Patient 11:03:38 CDT Tu Landeros MD [facility] CPT-19376 Level 3 Est. Patient 10:20:44 CDT Fab Morales DO [facility] CPT-53000 Level 4 Est. Patient 14:38:57 CDT Tu Landeros MD [facility] CPT-07109 Level 4 Est. Patient 14:27:39 PHARMACY DATA ANALYST Tu Landeros MD [facility] CPT-64245 Level 4 Est. Patient 09:45:25 CDT Tu Landeros MD [facility] CPT-20092 Level 4 Est. Patient 09:05:20 PHARMACY DATA ANALYST Tu Landeros MD [facility] CPT-11108 Level 4 Est. Patient 14:09:06 CDT Tu Landeros MD [facility] CPT-70638 Level 3 Est. Patient 13:36:54 CDT Tu Landeros MD [facility] CPT-07298 Level 3 Est. Patient 08:59:14 CDT Tu Landeros MD [facility] CPT-24800 Level 3 Est. Patient 13:48:35 CDT Fab Morales DO [facility] CPT-62507 Level 4 Est. Patient 10:05:48 CDT Tu Landeros MD [facility] CPT-18151 Level 3 Est. Patient 13:38:42 CDT Marek BANKS [facility] CPT-95746 Level 5 Est. Patient 08:08:39 CDT Jerrica FRANCIS [facility] CPT-98542 Level 4 Est. Patient 14:23:38 CDT Tu Landeros MD [facility] CPT-34033 Level 3 Est. Patient 11:44:04 CDT Tu Landeros MD [facility] CPT-78200 Level 3 Est. Patient 11:03:20 PHARMACY DATA ANALYST Tu Landeros MD [facility] CPT-62967 Level 3 Est. Patient 11:03:14 PHARMACY DATA ANALYST Tu Landeros MD [facility] CPT-23139 Level 3 Est. Patient 12:42:49 CDT Tu Landeros MD [facility] CPT-27011 Level 3 Est. Patient 11:52:06 CDT Tu Landeros MD [facility] CPT-81648 Level 3 Est. Patient 13:58:11 CDT Tu Landeros MD [facility] CPT-14246 Level 3 Est. Patient 17:50:07 CDT Fab Morales DO [facility] CPT-92451 Level 3 Est. Patient 12:06:29 CDT Elvira Cervantes MD PhD [facility] CPT-49793 Level 3 Est. Patient 15:50:32 CDT Tu Landeros MD [facility] CPT-51136 Level 4 Est. Patient 16:08:29 CDT Tu Landeros MD [facility] CPT-78146 Level 3 Est. Patient 16:04:19 CDT Tu Landeros MD [facility] CPT-17428 Level 3 Est. Patient 11:22:30 PHARMACY DATA ANALYST Tu Landeros MD [facility] CPT-08793 Level 4 Est. Patient 16:24:02 PHARMACY DATA ANALYST Tu Landeros MD [facility] CPT-56247 Level 3 Est. Patient 17:21:23 PHARMACY DATA ANALYST Tu Landeros MD [facility] Procedures Code Procedure Name Date Entry Date Standard Description CPT-G0439 Subsequent Annual Wellness Exam 14:46:36 CDT CPT-77051 Shoulder, right, comp min 2V - XRAY USE ONLY 13:50:22 CDT CPT-G0009 Administration of Pneumococcal Vaccine 15:08:26 CDT CPT-44140 Prevnar 13 Intramuscular Suspension 15:08:26 CDT 10/08 CPT-G0439 Subsequent Annual Wellness Exam 14:29:22 CDT CPT-51259 Venipuncture Draw Fee 13:15:35 CDT CPT-69641 Magnesium - LAB USE ONLY 11:14:20 PHARMACY DATA ANALYST CPT-22068 Lipid - LAB USE ONLY 11:14:20 PHARMACY DATA ANALYST CPT-58450 HGBA1C - LAB USE ONLY 11:14:20 PHARMACY DATA ANALYST CPT-52150 CMP - LAB USE ONLY 11:14:19 PHARMACY DATA ANALYST CPT-69146 CBC - LAB USE ONLY 11:14:19 PHARMACY DATA ANALYST CPT-51249 Venipuncture Draw Fee 11:14:18 PHARMACY DATA ANALYST CPT-39262 First Vx - Ix admin for Medicare patients 16:46:52 CDT CPT-49260 Fluzone Preservative Free Intramuscular Suspension 16:46 :51 CDT CPT-05358 CBC - LAB USE ONLY 17:14:46 CDT CPT-90471 HGBA1C - LAB USE ONLY 17:14:46 CDT CPT-75781 Venipuncture Draw Fee 17:14:46 CDT CPT-G0438 Initial Annual Wellness Exam 14:13:04 CDT CPT-43272 Breathing Tx 10:06:54 PHARMACY DATA ANALYST CPT-72029 Postop F/U Visit 10:02:45 CDT CPT-LR Lesion Removal 09:02:56 CDT CPT-JTINJ Asp/Joint Injection 15:51:27 PHARMACY DATA ANALYST CPT-OV Office Visit 15:52:02 PHARMACY DATA ANALYST CPT-OV Office Visit 15:45:11 CDT CPT-000 Give Zostavax 14:09:06 CDT CPT-13760 Administration single or combination vaccine inc oral 15 :19:04 CDT CPT-05797 Zoster Vaccine (Zostavax) 15:19:04 CDT CPT-49757 Administration single or combination vaccine inc oral 20 :51:03 CDT CPT-90172 Influenza split virus > age 3 20:51:03 CDT CPT-91243 No Charge Offi Visit 14:52:03 CDT CPT-OV Office Visit 14:57:43 CDT CPT-OV Office Visit 15:22:32 CDT CPT-24328 Administration single or combination vaccine inc oral 11 :33:15 CDT CPT-41267 Influenza split virus > age 3 11:33:15 CDT
--- OUTSIDE RECORDS SUMMARY | 2018-04-25 12:11 | XMS REPORT | Clinical Summary ---
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 Acute upper respiratory infections of [...] ICD-782.2 Inactive Tu Landeros MD ONYCHOMYCOSIS ICD-110.1 Tesas Landeros MD Open wound of abdominal wall, [...] 1 GM ORAL CAPSULE 1 po qd [id number] ETHYL ESTERS 04752287561 Active Tu Landeros MD Active TRILIPIX 135 MG ORAL CAPSULE DELAYED RELEASE 1 q hs CHOLINE FENOFIBRATE 94461520704 No Longer Active Cynthia NUNOA Active TRIAMCINOLONE ACETONIDE 0.1 % EXTERNAL CREAM Apply to affected area TID for up to 2 weeks TRIAMCINOLONE ACETONIDE 79368329496 Active Tu Landeros MD Active INDOMETHACIN 50 MG ORAL CAPSULE 1 po TID PRN Pain INDOMETHACIN 79259216729 Active Tu Landeros MD Active PROMETHAZINE-CODEINE 6.25-10 MG/5ML ORAL SYRUP 5ml po q6hr PRN Cough PROMETHAZINE-CODEINE 20994910932 No Longer Active Tu Landeros MD Active AZITHROMYCIN 250 MG ORAL TABLET 2 po qd x 1, then 1 po qd x 4 AZITHROMYCIN 06077179984 No Longer Active Tu Landeros MD Active GUAIFENESIN ER 600 MG ORAL TABLET EXTENDED RELEASE 12 HOUR 1 twice a day as needed for congestion GUAIFENESIN 89768110693 No Longer Active Tu Landeros MD Active PREDNISONE 20 MG ORAL TABLET 2 po qd x 5 days PREDNISONE 52695851513 No Longer Active Tu Landeros MD Active FLUTICASONE PROPIONATE 50 MCG/ACT NASAL SUSPENSION 2 sprays/nostril qd PRN Congestion/Allergies FLUTICASONE PROPIONATE 34222019447 Active Tu Landeros MD Active NASONEX 50 MCG/ACT NASAL SUSPENSION 2 actuations in each nostril q day 07/15 MOMETASONE FUROATE 99104888427 No Longer Active Tu Landeros MD Active MAGNESIUM OXIDE 400 MG ORAL TABLET 1 po BID MAGNESIUM OXIDE 27022485613 Active Tu Landeros MD Active SIMVASTATIN 20 MG ORAL TABLET 0.5 po qHS SIMVASTATIN 60701434094 Active Tu Landeros MD Active DICLOFENAC SODIUM 75 MG ORAL TABLET DELAYED RELEASE 1 po BID PRN Pain DICLOFENAC SODIUM 00891411918 No Longer Active Tu Landeros MD Active GABAPENTIN 100 MG ORAL CAPSULE 1 po TID GABAPENTIN 65244409092 Active Tu Landeros MD Active DICLOFENAC SODIUM 50 MG ORAL TABLET DELAYED RELEASE 1 po BID PRN Pain DICLOFENAC SODIUM 36463042724 No Longer Active Tu Landeros MD Active CYCLOBENZAPRINE HCL 10 MG ORAL TABLET 1 po TID PRN Muscle Spasm CYCLOBENZAPRINE HCL 03586408022 No Longer Active Tu Landeros MD Active INVOKANA 100 MG ORAL TABLET 1 po qd CANAGLIFLOZIN 64087883597 Active José Luis Becerra MD Active GLIPIZIDE 5 MG ORAL TABLET 1 po qd GLIPIZIDE 24989698163 No Longer Active Tu Landeros MD Active VENLAFAXINE HCL 75 MG ORAL TABLET 1 po BID VENLAFAXINE HCL 59289164354 Active Tu Landeros MD Active GLIMEPIRIDE 1 MG ORAL TABLET 1 po qd GLIMEPIRIDE 55182486887 No Longer Active Tu Landeros MD Active TRUE METRIX BLOOD GLUCOSE TEST IN VITRO STRIP Test blood sugar BID Dx: E11.9 GLUCOSE BLOOD 73108977085 Active Tu Landeros MD Active TRUE METRIX AIR GLUCOSE METER w/Device KIT Test blood glucose BID Dx: E11.9 BLOOD GLUCOSE MONITORING SUPPL 27377983188 Active Tu Landeros MD Active TRUETEST TEST IN VITRO STRIP test blood sugar twice daily. DX 250.0 GLUCOSE BLOOD 38153277441 No Longer Active Mirna Stanley LPN Active TRUEDRAW LANCING DEVICE test blood sugar twice daily dx: 250.00 LANCET DEVICES 76889043000 No Longer Active Mirna Stnaley LPN Active ENALAPRIL MALEATE 20 MG ORAL TABLET 2 po qd ENALAPRIL MALEATE 50167498590 Active Tu Landeros MD Active SUPER B COMPLEX/VITAMIN C ORAL TABLET 1 qd B COMPLEX- C 62810280448 No Longer Active Tu Landeros MD Active ASPIRIN EC 81 MG ORAL TABLET DELAYED RELEASE 1 po qd ASPIRIN 73062546054 Active Tu Landeros MD Active GLUCOSAMINE 500 MG TABS 2 po qd GLUCOSAMINE Active Tu Landeros MD Active FISH OIL 1000 MG ORAL CAPSULE 1 po qd OMEGA-3 FATTY ACIDS 58450240504 Active Tu Landeros MD Active METFORMIN HCL 1000 MG ORAL TABLET 1 po BID METFORMIN HCL 86345340615 Active Tu Landeros MD Active KLOR-CON 10 10 MEQ ORAL TABLET EXTENDED RELEASE 2 po qd POTASSIUM CHLORIDE 07633311487 Active Tu Landeros MD Active FUROSEMIDE 40 MG ORAL TABLET 1 po qd FUROSEMIDE 94270091605 Active Tu Landeros MD Active REQUIP 2 MG ORAL TABLET 1 po qHS PRN Restless legs ROPINIROLE HCL 19283624008 Active Tu Landeros MD Active REQUIP 2 MG ORAL TABLET Take one tablet at bedtime prn ROPINIROLE HCL 84654929082 No Longer Active Tu Landeros MD Active VENTOLIN HFA 108 (90 Base) MCG/ACT INHALATION AEROSOL SOLUTION 1-2 puffs every 4 hours if needed for cough/congestion ALBUTEROL SULFATE 22134297082 No Longer Active Ambika Aden APRN Active ZITHROMAX 250 MG ORAL TABLET 2 po today, then 1 po q days 2-5 AZITHROMYCIN 17338999292 No Longer Active Miranda Farah APRN Active FLONASE 50 MCG/ACT NASAL SUSPENSION 1 spray each nostril twice daily until bottle empty FLUTICASONE PROPIONATE 68768026763 No Longer Active Tu Landeros MD Active COLACE 100 MG ORAL CAPSULE 1 po BID PRN Constipation DOCUSATE SODIUM 65164971544 Active Tu Landeros MD Active TRUERESULT BLOOD GLUCOSE w/Device KIT test blood sugar twice daily dx 250.00 BLOOD GLUCOSE MONITORING SUPPL 40419240633 No Longer Active Tu Landeros MD Active TRUEDRAW LANCING DEVICE Test twice a day dx 250.0 LANCET DEVICES 34036537348 No Longer Active Tu Landeros MD Active PREDNISONE 20 MG ORAL TABLET 2 tablets once daily for 2 days, then 1 tablet once daily for 2 days PREDNISONE 42145619733 No Longer Active Tu Landeros MD Active DICLOFENAC SODIUM 50 MG ORAL TABLET DELAYED RELEASE 1 tablet by mouth three times a day as needed DICLOFENAC SODIUM 91599727849 No Longer Active Fab Morales DO Active EMBRACE BLOOD GLUCOSE TEST IN VITRO STRIP test blood sugar twice daily DX 250.0 GLUCOSE BLOOD 23165474688 No Longer Active Tu Landeros MD Active TRUETEST TEST IN VITRO STRIP test blood sugar three times daily dx: 250.00 GLUCOSE BLOOD 24418931965 No Longer Active Suze VOGEL Active TRUERESULT BLOOD GLUCOSE w/Device KIT use to test blood sugar tid dx: 250.00 BLOOD GLUCOSE MONITORING SUPPL 09964324270 No Longer Active Suzebianca VOGEL Active ALIGN 4 MG ORAL CAPSULE 1 tid PROBIOTIC PRODUCT 52616220753 No Longer Active Shaun Sy MD Active CIPRO 500 MG ORAL TABLET 1 bid x 14 days start 09-28-13 CIPROFLOXACIN HCL 06324641544 No Longer Active Shaun Sy MD Active TRAMADOL HCL 50 MG ORAL TABLET 1-2 tablets every 6 hours as needed for pain TRAMADOL HCL 48352028031 Active Tu Landeros MD Active HYDROCODONE-ACETAMINOPHEN 5-325 MG ORAL TABLET 1 tab by mouth every 6 hours as needed for pain HYDROCODONE-ACETAMINOPHEN 59574312613 No Longer Active Tu Landeros MD Active OMEPRAZOLE 20 MG ORAL CAPSULE DELAYED RELEASE 1 po q a.m. OMEPRAZOLE 57633215686 Active Tu Landeros MD Active GABAPENTIN 100 MG ORAL CAPSULE 1 po bid GABAPENTIN 44061878748 No Longer Active Tu Landeros MD Active B-12 100 MCG ORAL TABLET Take one by mouth daily CYANOCOBALAMIN 18191909351 No Longer Active Tu Landeros MD Active BACTRIM DS 800-160 MG ORAL TABLET 1 bid x 14 day start 09-28-13 SULFAMETHOXAZOLE-TRIMETHOPRIM 35603275113 No Longer Active Tu Landeros MD Active CARVEDILOL 12.5 MG ORAL TABLET 1 po BID CARVEDILOL 10498668950 Active Tu Landeros MD Active FENOFIBRATE 145 MG ORAL TABLET 1 po qd FENOFIBRATE 46041578359 No Longer Active JASPREET Perez Active OMEPRAZOLE 20 MG ORAL TABLET DELAYED RELEASE 1 PO 30 MIN BEFORE 1ST MEAL 2010 OMEPRAZOLE 51976336723 No Longer Active JASPREET Perez Active SIMVASTATIN 40 MG ORAL TABLET Take one by mouth daily SIMVASTATIN 55138244762 No Longer Active JASPREET Perez Active VENLAFAXINE HCL 75 MG ORAL TABLET 1 po BID VENLAFAXINE HCL 89812609310 No Longer Active JASPREET Perez Active CIPRO 500 MG ORAL TABLET 1 tablet by mouth twice daily CIPROFLOXACIN HCL 81832145005 No Longer Active Tu Landeros MD Active VENLAFAXINE HCL 37.5 MG ORAL TABLET 1 po BID VENLAFAXINE HCL 64152617160 No Longer Active Suze NUNOA Active LAMISIL 250 MG ORAL TABLET 1 po qd TERBINAFINE HCL 17412371982 No Longer Active Tu Landeros MD Active LORTAB 5-500 MG ORAL TABLET 1/2 to 1 tablet by mouth every 4 hours as needed for pain HYDROCODONE-ACETAMINOPHEN 57198038847 No Longer Active Tu Landeros MD Active HYDROCODONE-ACETAMINOPHEN 5-500 MG ORAL TABLET take one po Q 4-6 hours prn HYDROCODONE-ACETAMINOPHEN 14022061076 No Longer Active Tu Landeros MD Active BACTRIM DS 800-160 MG ORAL TABLET 1 po BID x 7 days SULFAMETHOXAZOLE-TRIMETHOPRIM 60501852961 No Longer Active Tu Landeros MD Active VENLAFAXINE HCL 75 MG ORAL TABLET 1 po BID VENLAFAXINE HCL 28027017982 No Longer Active Elvira Cervantes MD PhD Active TRAMADOL HCL 50 MG ORAL TABLET 1 tablets every 6 hours as needed for pain TRAMADOL HCL 08741597869 No Longer Active Tu Landeros MD Active ACCU-CHEDawson FASTCLIX LANCETS Use to check bloodsugar three times daily as needed LANCETS 95325665800 No Longer Active Tu Landeros MD Active ACCU-CHEDawson KEYONA PLUS IN VITRO STRIP Use for testing bloodsugars three times daily as needed GLUCOSE BLOOD 20999861454 No Longer Active Tu Landeros MD Active ACCU-CHEK KEYONA PLUS w/Device KIT Use for testing bloodsugars three times daily as needed BLOOD GLUCOSE MONITORING SUPPL 05386966493 No Longer Active Tu Landeros MD Active SPIRONOLACTONE 25 MG ORAL TABLET 0.5 tablet by mouth daily 09/09 SPIRONOLACTONE 48453329345 No Longer Active Tu Landeros MD Active ALPRAZOLAM 0.5 MG ORAL TABLET 1 tab every 6hrs as needed ALPRAZOLAM 36868564450 No Longer Active Tu Landeros MD Active AUGMENTIN 875-125 MG ORAL TABLET 1 tab by mouth twice daily with food AMOXICILLIN-POT CLAVULANATE 83739737820 No Longer Active Tu Landeros MD Active PREDNISONE 20 MG ORAL TABLET 2 tabs daily for 3 days, 1 tab daily for 3 days, 1/2 tab daily for 2 days PREDNISONE 83274701764 No Longer Active Tu Landeros MD Active XANAX 0.5 MG ORAL TABLET 1 tablet every 6 hrs prn ALPRAZOLAM 52079529169 No Longer Active Tu Landeros MD Active PREDNISONE 20 MG ORAL TABLET 2 tabs daily for 3 days, 1 tab daily for 3 days, 1/2 tab daily for 2 days PREDNISONE 80896301124 No Longer Active Tu Landeros MD Active TRIAMCINOLONE ACETONIDE 0.1 % EXTERNAL OINTMENT Apply to affected areas TID for up to 2 weeks TRIAMCINOLONE ACETONIDE 50646649055 No Longer Active Tu Landeros MD Active LORTAB 5-500 MG ORAL TABLET 1/2 to 1 tablet by mouth every 4 hours as needed for pain HYDROCODONE-ACETAMINOPHEN 18720867288 No Longer Active Tu Landeros MD Active MULTIVITAMINS TABS Take one by mouth daily MULTIPLE VITAMIN 18667374100 No Longer Active Tu Landeros MD Active MELATONIN 5 MG ORAL TABLET Take one by mouth daily MELATONIN 12711854647 No Longer Active Tu Landeros MD Active SOMA 350 MG ORAL TABLET 1 po q 6 hours prn spasm CARISOPRODOL 37621338836 No Longer Active Tu Landeros MD Active MECLIZINE HCL 25 MG ORAL TABLET CHEWABLE 1 four times a day as needed for dizziness MECLIZINE HCL 03914624233 No Longer Active Fab Morales DO Active ANGEL BREEZE 2 TEST IN VITRO DISK test tid prn GLUCOSE BLOOD 71957147559 No Longer Active Negra Scott RN Active REGLAN 10 MG ORAL TABLET 1 po TID PRN Nausea METOCLOPRAMIDE HCL 99171758023 No Longer Active Tu Landeros MD Active METFORMIN HCL 500 MG ORAL TABLET 1 PO BID METFORMIN HCL 52457508203 No Longer Active Tu Landeros MD Active AMBIEN 10 MG ORAL TABLET 1 tab by mouth at bedtime as needed for sleep 06/10 ZOLPIDEM TARTRATE 68832575685 No Longer Active Tu Landeros MD Active FLUOXETINE HCL 40 MG ORAL CAPSULE 1 po q day FLUOXETINE HCL 30500157701 No Longer Active Mayra [place] Active TRILIPIX 135 MG ORAL CAPSULE DELAYED RELEASE 1 po qd CHOLINE FENOFIBRATE 64830755381 No Longer Active Tu Landeros MD Active AMBIEN 10 MG ORAL TABLET 1 tab by mouth at bedtime as needed for sleep 06/10 AMBIEN 10 MG ORAL TABLET 183044 ZOLPIDEM TARTRATE Inactive METFORMIN HCL 500 MG ORAL TABLET 1 PO BID METFORMIN HCL 500 MG ORAL TABLET 643753 METFORMIN HCL Inactive REGLAN 10 MG ORAL TABLET 1 po TID PRN Nausea REGLAN 10 MG ORAL TABLET 908345 METOCLOPRAMIDE HCL Inactive MECLIZINE HCL 25 MG ORAL TABLET CHEWABLE 1 four times a day as needed for dizziness MECLIZINE HCL 25 MG ORAL TABLET CHEWABLE 537580 MECLIZINE HCL Inactive SOMA 350 MG ORAL TABLET 1 po q 6 hours prn spasm SOMA 350 MG ORAL TABLET 527330 CARISOPRODOL Inactive MELATONIN 5 MG ORAL TABLET Take one by mouth daily MELATONIN 5 MG ORAL TABLET 652564 MELATONIN Inactive MULTIVITAMINS TABS Take one by mouth daily MULTIVITAMINS TABS MULTIPLE VITAMIN Inactive LORTAB 5-500 MG ORAL TABLET 1/2 to 1 tablet by mouth every 4 hours as needed for pain LORTAB 5-500 MG ORAL TABLET HYDROCODONE- ACETAMINOPHEN Inactive XANAX 0.5 MG ORAL TABLET 1 tablet every 6 hrs prn XANAX 0.5 MG ORAL TABLET 086817 ALPRAZOLAM Inactive AUGMENTIN 875-125 MG ORAL TABLET 1 tab by mouth twice daily with food AUGMENTIN 875-125 MG ORAL TABLET 037340 AMOXICILLIN-POT CLAVULANATE Inactive ALPRAZOLAM 0.5 MG ORAL TABLET 1 tab every 6hrs as needed ALPRAZOLAM 0.5 MG ORAL TABLET 458384 ALPRAZOLAM Inactive SPIRONOLACTONE 25 MG ORAL TABLET 0.5 tablet by mouth daily 09/09 SPIRONOLACTONE 25 MG ORAL TABLET 851765 SPIRONOLACTONE Inactive ACCU-CHEK KEYONA PLUS w/Device KIT [...] times daily as needed ACCU-CHEK FASTCLIX LANCETS 94832880487 LANCETS Inactive TRAMADOL HCL 50 MG ORAL TABLET 1 tablets every 6 hours as needed for pain TRAMADOL HCL 50 MG ORAL TABLET 827202 TRAMADOL HCL Inactive VENLAFAXINE HCL 75 MG ORAL TABLET 1 po BID VENLAFAXINE HCL 75 MG ORAL TABLET 180312 VENLAFAXINE HCL Inactive HYDROCODONE-ACETAMINOPHEN 5-500 MG ORAL TABLET take one po Q 4-6 hours prn HYDROCODONE-ACETAMINOPHEN 5-500 MG ORAL TABLET HYDROCODONE-ACETAMINOPHEN Inactive LORTAB 5-500 MG ORAL TABLET 1/2 to 1 tablet by mouth every 4 hours as needed for pain LORTAB 5-500 MG ORAL TABLET HYDROCODONE- ACETAMINOPHEN Inactive LAMISIL 250 MG ORAL TABLET 1 po qd LAMISIL 250 MG ORAL TABLET 817741 TERBINAFINE HCL Inactive VENLAFAXINE HCL 37.5 MG ORAL TABLET 1 po BID VENLAFAXINE HCL 37.5 MG ORAL TABLET 408056 VENLAFAXINE HCL Inactive CIPRO 500 MG ORAL TABLET 1 tablet by mouth twice daily CIPRO 500 MG ORAL TABLET 126438 CIPROFLOXACIN HCL Inactive VENLAFAXINE HCL 75 MG ORAL TABLET 1 po BID VENLAFAXINE HCL 75 MG ORAL TABLET 868901 VENLAFAXINE HCL Inactive SIMVASTATIN 40 MG ORAL TABLET Take one by mouth daily SIMVASTATIN 40 MG ORAL TABLET 811194 SIMVASTATIN Inactive OMEPRAZOLE 20 MG ORAL TABLET DELAYED RELEASE 1 PO 30 MIN BEFORE 1ST MEAL 2010 OMEPRAZOLE 20 MG ORAL TABLET DELAYED RELEASE 907948 OMEPRAZOLE Inactive FENOFIBRATE 145 MG ORAL TABLET 1 po qd FENOFIBRATE 145 MG ORAL TABLET 861786 FENOFIBRATE Inactive BACTRIM DS 800-160 MG ORAL TABLET 1 bid x 14 day start 09-28-13 BACTRIM DS 800-160 MG ORAL TABLET 264905 SULFAMETHOXAZOLE- TRIMETHOPRIM Inactive B-12 100 MCG ORAL TABLET Take one by mouth daily B-12 100 MCG ORAL TABLET CYANOCOBALAMIN Inactive GABAPENTIN 100 MG ORAL CAPSULE 1 po bid GABAPENTIN 100 MG ORAL CAPSULE 101246 GABAPENTIN Inactive HYDROCODONE-ACETAMINOPHEN 5-325 MG ORAL TABLET 1 tab by mouth every 6 hours as needed for pain HYDROCODONE-ACETAMINOPHEN 5-325 MG ORAL TABLET 695091 HYDROCODONE-ACETAMINOPHEN Inactive CIPRO 500 MG ORAL TABLET 1 bid x 14 days start 814 CIPRO 500 MG ORAL TABLET 159629 CIPROFLOXACIN HCL Inactive ALIGN 4 MG ORAL [...] SODIUM 50 MG ORAL TABLET DELAYED RELEASE 713679 DICLOFENAC SODIUM Inactive PREDNISONE 20 MG ORAL TABLET 2 tablets once daily for 2 days, then 1 tablet once daily for 2 days PREDNISONE 20 MG ORAL TABLET 403646 PREDNISONE Inactive TRUEDRAW LANCING DEVICE Test twice a day dx 250.0 TRUEDRAW LANCING DEVICE LANCET DEVICES Inactive TRUERESULT BLOOD GLUCOSE w/Device KIT test blood sugar twice daily dx 250.00 TRUERESULT BLOOD GLUCOSE w/Device KIT BLOOD GLUCOSE MONITORING SUPPL Inactive FLONASE 50 MCG/ACT NASAL SUSPENSION 1 spray each nostril twice daily until bottle empty FLONASE 50 MCG/ACT NASAL SUSPENSION 9067901 FLUTICASONE PROPIONATE Inactive VENTOLIN HFA 108 (90 Base) MCG/ACT INHALATION AEROSOL SOLUTION 1-2 puffs every 4 hours if needed for cough/congestion VENTOLIN HFA 108 (90 Base) MCG/ACT INHALATION AEROSOL SOLUTION ALBUTEROL SULFATE Inactive REQUIP 2 MG ORAL TABLET Take one tablet at bedtime prn REQUIP 2 MG ORAL TABLET 133623 ROPINIROLE HCL Inactive SUPER B COMPLEX/VITAMIN C ORAL TABLET 1 qd SUPER B COMPLEX/VITAMIN C ORAL TABLET 08999566317 B COMPLEX-C Inactive TRUEDRAW LANCING DEVICE test blood sugar twice daily dx: 250.00 TRUEDRAW LANCING DEVICE LANCET DEVICES Inactive TRUETEST TEST IN VITRO STRIP test blood sugar twice daily. DX 250.0 TRUETEST TEST IN VITRO STRIP GLUCOSE BLOOD Inactive CYCLOBENZAPRINE HCL 10 MG ORAL TABLET 1 po TID PRN Muscle Spasm CYCLOBENZAPRINE HCL 10 MG ORAL TABLET 366856 CYCLOBENZAPRINE HCL Inactive DICLOFENAC SODIUM 50 MG ORAL TABLET DELAYED RELEASE 1 po BID PRN Pain DICLOFENAC SODIUM 50 MG ORAL TABLET DELAYED RELEASE 166897 DICLOFENAC SODIUM Inactive DICLOFENAC SODIUM 75 MG ORAL TABLET DELAYED RELEASE 1 po BID PRN Pain DICLOFENAC SODIUM 75 MG ORAL TABLET DELAYED RELEASE 197111 DICLOFENAC SODIUM Inactive NASONEX 50 MCG/ACT NASAL SUSPENSION 2 actuations in each nostril q day 07/15 NASONEX 50 MCG/ACT NASAL SUSPENSION 0115630 MOMETASONE FUROATE Inactive GUAIFENESIN ER 600 MG ORAL TABLET EXTENDED RELEASE 12 HOUR 1 twice a day as needed for congestion GUAIFENESIN ER 600 MG ORAL TABLET EXTENDED RELEASE 12 HOUR GUAIFENESIN Inactive AZITHROMYCIN 250 MG ORAL TABLET 2 po qd x 1, then 1 po qd x 4 AZITHROMYCIN 250 MG ORAL TABLET 833582 AZITHROMYCIN Inactive PROMETHAZINE-CODEINE 6.25-10 MG/5ML ORAL SYRUP 5ml po q6hr PRN Cough PROMETHAZINE-CODEINE 6.25-10 MG/5ML ORAL SYRUP 127142 PROMETHAZINE-CODEINE Inactive TRILIPIX 135 MG ORAL CAPSULE DELAYED RELEASE 1 q hs TRILIPIX 135 MG ORAL CAPSULE DELAYED RELEASE 751488 CHOLINE FENOFIBRATE Inactive TRIAMCINOLONE ACETONIDE 0.1 % EXTERNAL OINTMENT Apply to affected areas TID for up to 2 weeks TRIAMCINOLONE ACETONIDE 0.1 % EXTERNAL OINTMENT 6854363 TRIAMCINOLONE ACETONIDE Inactive PREDNISONE 20 MG ORAL TABLET 2 tabs daily for 3 days, 1 tab daily for 3 days, 1/2 tab daily for 2 days PREDNISONE 20 MG ORAL TABLET 155779 PREDNISONE Inactive PREDNISONE 20 MG ORAL TABLET 2 tabs daily for 3 days, 1 tab daily for 3 days, 1/2 tab daily for 2 days PREDNISONE 20 MG ORAL TABLET 364230 PREDNISONE Inactive BACTRIM DS 800-160 MG ORAL TABLET 1 po BID x 7 days BACTRIM DS 800-160 MG ORAL TABLET 361190 SULFAMETHOXAZOLE-TRIMETHOPRIM Inactive ZITHROMAX 250 MG ORAL TABLET 2 po today, then 1 po q days 2-5 ZITHROMAX 250 MG ORAL TABLET 118087 AZITHROMYCIN Inactive PREDNISONE 20 MG ORAL TABLET 2 po qd x 5 days PREDNISONE 20 MG ORAL TABLET 810968 PREDNISONE Inactive Advance Directives Directive Description Start Date DISCUSSED WITH PATIENT -- NO DECISION MADE Immunizations Vaccine Administration Date Value Standard Description Seasonal influenza vaccine, injectable, containing preservative, for > 3 years old (Afluria, FluLaval, Fluzone, Fluvirin, Fluarix, Agriflu(>=18 yo)) Fluzone (>3 yrs.) [[id number]] Influenza, seasonal, injectable influenza immunization (Flu Vax) has been administered 02/22/2012 influenza virus vaccine, unspecified formulation Seasonal influenza vaccine, injectable, containing preservative, for > 3 years old (Afluria, FluLaval, Fluzone, Fluvirin, Fluarix, Agriflu(>=18 yo)) Fluzone (>3 yrs.) [[id number]] Influenza, seasonal, injectable Vital Signs Date Name [...] ... - Chemistry sodium, serum 141 mmol/L 144-947 5720/01/16 carbon dioxide, venous blood 28.3 mmol/L 21.0-32.0 [...] 6.7 % 4.3-6.0 cholesterol, serum 106 mg/dL 536-947 1852/01/16 triglyceride, serum, fasting 173 mg/dL 30-200 HDL [...] Magnesium - Chemistry sodium, serum 142 mmol/L 627-045 9739/07/16 carbon dioxide, venous blood 29.4 mmol/L 21.0-32.0 [...] Panel - Chemistry cholesterol, serum 170 mg/dL 093-352 9022/07/16 triglyceride, serum, fasting 266 mg/dL 30-200 HDL cholesterol, serum 42 mg/dL 32-60 LDL cholesterol, serum 75 mg/dL 0-130 Encounters Code Encounter Date Provider Facility CPT-84597 Level 4 Est. Patient 14:46:36 CDT Tu Landeros MD [facility] CPT-99251 Level 3 Est. Patient 10:28:05 CDT Tu Landeros MD [facility] CPT-17798 Level 3 Est. Patient 09:11:32 CDT Tu Landeros MD [facility] CPT-60271 Level 3 Est. Patient 10:13:19 SDE Lesli Kellogg APRN [facility] CPT-71357 Level 4 Est. Patient 13:42:02 SDE Tu Landeros MD [facility] CPT-24681 Level 3 Est. Patient 14:20:36 CDT Tu Landeros MD [facility] CPT-92276 Level 4 Est. Patient 14:28:34 CDT Tu Landeros MD [facility] CPT-42984 Level 3 Est. Patient 13:33:09 CDT Tu Landeros MD [facility] CPT-75867 Level 4 Est. Patient 14:29:21 CDT Tu Landeros MD [facility] CPT-05053 Level 4 Est. Patient 09:08:17 SDE Tu Landeros MD [facility] CPT-15785 Level 4 Est. Patient 14:40:19 CDT Tu Landeros MD [facility] CPT-37127 Level 4 Est. Patient 14:06:04 SDE Tu Landeros MD [facility] CPT-05740 Level 3 Est. Patient 14:05:18 SDE Tu Lnaderos MD [facility] CPT-45197 Level 3 Est. Patient 10:06:54 SDE Miranda Farah APRN [facility] CPT-27477 Level 4 Est. Patient 13:50:18 SDE Tu Landeros MD [facility] CPT-74001 Level 3 Est. Patient 10:30:04 CDT Tu Landeros MD [facility] CPT-37082 Level 4 Est. Patient 11:03:38 CDT Tu Landeros MD [facility] CPT-29485 Level 3 Est. Patient 10:20:44 CDT Fab Morales DO [facility] CPT-73426 Level 4 Est. Patient 14:38:57 CDT Tu Landeros MD [facility] CPT-68810 Level 4 Est. Patient 14:27:39 SDE Tu Landeros MD [facility] CPT-49734 Level 4 Est. Patient 09:45:25 CDT Tu Landeros MD [facility] CPT-14050 Level 4 Est. Patient 09:05:20 SDE Tu Landeros MD [facility] CPT-90570 Level 4 Est. Patient 14:09:06 CDT Tu Landeros MD [facility] CPT-51494 Level 3 Est. Patient 13:36:54 CDT Tu Landeros MD [facility] CPT-48219 Level 3 Est. Patient 08:59:14 CDT Tu Landeros MD [facility] CPT-14464 Level 3 Est. Patient 13:48:35 CDT Fab Morales DO [facility] CPT-44775 Level 4 Est. Patient 10:05:48 CDT Tu Landeros MD [facility] CPT-01421 Level 3 Est. Patient 13:38:42 CDT Marek BANKS [facility] CPT-47923 Level 5 Est. Patient 08:08:39 CDT Jerrica FRANCIS [facility] CPT-61655 Level 4 Est. Patient 14:23:38 CDT Tu Landeros MD [facility] CPT-78559 Level 3 Est. Patient 11:44:04 CDT Tu Landeros MD [facility] CPT-01556 Level 3 Est. Patient 11:03:20 SDE Tu Landeros MD [facility] CPT-98132 Level 3 Est. Patient 11:03:14 SDE Tu Landeros MD [facility] CPT-07884 Level 3 Est. Patient 12:42:49 CDT Tu Landeros MD [facility] CPT-54994 Level 3 Est. Patient 11:52:06 CDT Tu Landeros MD [facility] CPT-04128 Level 3 Est. Patient 13:58:11 CDT Tu Landeros MD [facility] CPT-09573 Level 3 Est. Patient 17:50:07 CDT Fab Morales DO [facility] CPT-67376 Level 3 Est. Patient 12:06:29 CDT Elvira Cervantes MD PhD [facility] CPT-55619 Level 3 Est. Patient 15:50:32 CDT Tu Landeros MD [facility] CPT-95432 Level 4 Est. Patient 16:08:29 CDT Tu Landeros MD [facility] CPT-54362 Level 3 Est. Patient 16:04:19 CDT Tu Landeros MD [facility] CPT-94271 Level 3 Est. Patient 11:22:30 SDE Tu Landeros MD [facility] CPT-53061 Level 4 Est. Patient 16:24:02 SDE Tu Landeros MD [facility] CPT-98337 Level 3 Est. Patient 17:21:23 SDE Tu Landeros MD [facility] Procedures Code Procedure Name Date Entry Date Standard Description CPT-G0439 Subsequent Annual Wellness Exam 14:46:36 CDT CPT-15441 Shoulder, right, comp min 2V - XRAY USE ONLY 13:50:22 CDT CPT-G0009 Administration of Pneumococcal Vaccine 15:08:26 CDT CPT-73207 Prevnar 13 Intramuscular Suspension 15:08:26 CDT 10/08 CPT-G0439 Subsequent Annual Wellness Exam 14:29:22 CDT CPT-80346 Venipuncture Draw Fee 13:15:35 CDT CPT-28817 Magnesium - LAB USE ONLY 11:14:20 SDE CPT-84449 Lipid - LAB USE ONLY 11:14:20 SDE CPT-31713 HGBA1C - LAB USE ONLY 11:14:20 SDE CPT-68496 CMP - LAB USE ONLY 11:14:19 SDE CPT-97364 CBC - LAB USE ONLY 11:14:19 SDE CPT-81720 Venipuncture Draw Fee 11:14:18 SDE CPT-12958 First Vx - Ix admin for Medicare patients 16:46:52 CDT CPT-84821 Fluzone Preservative Free Intramuscular Suspension 16:46 :51 CDT CPT-35967 CBC - LAB USE ONLY 17:14:46 CDT CPT-40657 HGBA1C - LAB USE ONLY 17:14:46 CDT CPT-37572 Venipuncture Draw Fee 17:14:46 CDT CPT-G0438 Initial Annual Wellness Exam 14:13:04 CDT CPT-65758 Breathing Tx 10:06:54 SDE CPT-94529 Postop F/U Visit 10:02:45 CDT CPT-LR Lesion Removal 09:02:56 CDT CPT-JTINJ Asp/Joint Injection 15:51:27 SDE CPT-OV Office Visit 15:52:02 SDE CPT-OV Office Visit 15:45:11 CDT CPT-000 Give Zostavax 14:09:06 CDT CPT-97462 Administration single or combination vaccine inc oral 15 :19:04 CDT CPT-38411 Zoster Vaccine (Zostavax) 15:19:04 CDT CPT-97650 Administration single or combination vaccine inc oral 20 :51:03 CDT CPT-06300 Influenza split virus > age 3 20:51:03 CDT CPT-33944 No Charge Offi Visit 14:52:03 CDT CPT-OV Office Visit 14:57:43 CDT CPT-OV Office Visit 15:22:32 CDT CPT-19934 Administration single or combination vaccine inc oral 11 :33:15 CDT CPT-81117 Influenza split virus > age 3 11:33:15 CDT
[2018-04-25 12:12] LABS: HEMOGLOBIN 13.5 G/DL (11.5-16.0); MEAN PLATELET VOLUME 10.8 FL (7.4-10.4); RED BLOOD COUNT 4.55 10^6/uL (4.35-5.85); RED CELL DISTRIBUTION WIDTH 13.7 % (10.0-14.5); WHITE BLOOD COUNT 8.5 10^3/uL (4.3-11.0)
--- OUTSIDE RECORDS SUMMARY | 2018-04-25 12:12 | XMS REPORT | Clinical Summary ---
Author Author Admin, SACHI Organization [employer] Address Unknown Phone Unavailable Allergies, Adverse Reactions, Alerts Allergy Name Reaction Description Start Date Severity Status Provider GLIMPERIDE Critical Active Lesli Kellogg APRN AMBIEN migraine h/a Critical Active Luisa Reynolds RN AMBEIN migraine h/a Moderate No Longer Active uT Landeros MD TRICOR rash, trouble breathing Critical [...] magnesium metabolism URI 465.9 Inactive Lesli Kellogg CARE TAKER Acute upper respiratory infections of unspecified site [...] impairment level not further specified ICD- 369.20 Tessa Landeros MD Pain in unspecified foot ICD-729.5 Inactive Tu Landeros MD Shoulder pain, right ICD-719.41 Inactive Tu Landeros MD Great toe pain ICD-729.5 Tessa Landeros MD Upper respiratory infection, viral ICD-465.9 Tessa Landeros MD Medication List Medication Instructions Start Date Stop Date Generic Name NDC Status Provider Patient Instruction TRILIPIX 135 MG ORAL CAPSULE DELAYED RELEASE 1 q hs CHOLINE FENOFIBRATE 69173772905 No Longer Active Cynthia Valdivia RMA Active TRIAMCINOLONE ACETONIDE 0.1 % EXTERNAL CREAM Apply to affected area TID for up to 2 weeks TRIAMCINOLONE ACETONIDE 32193678904 Active Tu Landeros MD Active INDOMETHACIN 50 MG ORAL CAPSULE 1 po TID PRN Pain INDOMETHACIN 65655745039 Active Tu Landeros MD Active PROMETHAZINE-CODEINE 6.25-10 MG/5ML ORAL SYRUP 5ml po q6hr PRN Cough PROMETHAZINE-CODEINE 97636855895 No Longer Active Tu Landeros MD Active AZITHROMYCIN 250 MG ORAL TABLET 2 po qd x 1, then 1 po qd x 4 AZITHROMYCIN 77367555364 No Longer Active Tu Landeros MD Active GUAIFENESIN ER 600 MG ORAL TABLET EXTENDED RELEASE 12 HOUR 1 twice a day as needed for congestion GUAIFENESIN 33366097098 No Longer Active Tu Landeros MD Active PREDNISONE 20 MG ORAL TABLET 2 po qd x 5 days PREDNISONE 98222401624 No Longer Active Tu Landeros MD Active FLUTICASONE PROPIONATE 50 MCG/ACT NASAL SUSPENSION 2 sprays/nostril qd PRN Congestion/Allergies FLUTICASONE PROPIONATE 50119691271 Active Tu Landeros MD Active NASONEX 50 MCG/ACT NASAL SUSPENSION 2 actuations in each nostril q day 07/15 MOMETASONE FUROATE 20074081759 No Longer Active Tu Landeros MD Active MAGNESIUM OXIDE 400 MG ORAL TABLET 1 po BID MAGNESIUM OXIDE 52890870162 Active Tu Landeros MD Active SIMVASTATIN 20 MG ORAL TABLET 0.5 po qHS SIMVASTATIN 67061956983 Active Tu Landeros MD Active DICLOFENAC SODIUM 75 MG ORAL TABLET DELAYED RELEASE 1 po BID PRN Pain DICLOFENAC SODIUM 78454494787 No Longer Active Tu Landeros MD Active GABAPENTIN 100 MG ORAL CAPSULE 1 po TID GABAPENTIN 58895100777 Active Tu Landeros MD Active DICLOFENAC SODIUM 50 MG ORAL TABLET DELAYED RELEASE 1 po BID PRN Pain DICLOFENAC SODIUM 22568983011 No Longer Active Tu Landeros MD Active CYCLOBENZAPRINE HCL 10 MG ORAL TABLET 1 po TID PRN Muscle Spasm CYCLOBENZAPRINE HCL 29578407834 No Longer Active Tu Landeros MD Active INVOKANA 100 MG ORAL TABLET 1 po qd CANAGLIFLOZIN 16285912451 Active José Luis Becerra MD Active GLIPIZIDE 5 MG ORAL TABLET 1 po qd GLIPIZIDE 61880321715 No Longer Active Tu Landeros MD Active VENLAFAXINE HCL 75 MG ORAL TABLET 1 po BID VENLAFAXINE HCL 34215299647 Active Tu Landeros MD Active GLIMEPIRIDE 1 MG ORAL TABLET 1 po qd GLIMEPIRIDE 62619860992 No Longer Active Tu Landeros MD Active TRUE METRIX BLOOD GLUCOSE TEST IN VITRO STRIP Test blood sugar BID Dx: E11.9 GLUCOSE BLOOD 01358562720 Active Tu Landeros MD Active TRUE METRIX AIR GLUCOSE METER w/Device KIT Test blood glucose BID Dx: E11.9 BLOOD GLUCOSE MONITORING SUPPL 28732364564 Active Tu Landeros MD Active TRUETEST TEST IN VITRO STRIP test blood sugar twice daily. DX 250.0 GLUCOSE BLOOD 74241694226 No Longer Active Mirna Stanley LPN Active TRUEDRAW LANCING DEVICE test blood sugar twice daily dx: 250.00 LANCET DEVICES 30371068351 No Longer Active Mirna Stanley LPN Active ENALAPRIL MALEATE 20 MG ORAL TABLET 2 po qd ENALAPRIL MALEATE 44800990883 Active Tu Landeros MD Active SUPER B COMPLEX/VITAMIN C ORAL TABLET 1 qd B COMPLEX- C 84353269167 No Longer Active Tu Landeros MD Active ASPIRIN EC 81 MG ORAL TABLET DELAYED RELEASE 1 po qd ASPIRIN 33244707226 Active Tu Landeros MD Active GLUCOSAMINE 500 MG TABS 2 po qd GLUCOSAMINE Active Tu Landeros MD Active FISH OIL 1000 MG ORAL CAPSULE 1 po qd OMEGA-3 FATTY ACIDS 45975588325 Active Tu Landeros MD Active METFORMIN HCL 1000 MG ORAL TABLET 1 po BID METFORMIN HCL 68841455084 Active Tu Landeros MD Active KLOR-CON 10 10 MEQ ORAL TABLET EXTENDED RELEASE 2 po qd POTASSIUM CHLORIDE 76503272685 Active Tu Landeros MD Active FUROSEMIDE 40 MG ORAL TABLET 1 po qd FUROSEMIDE 93939934042 Active Tu Landeros MD Active REQUIP 2 MG ORAL TABLET 1 po qHS PRN Restless legs ROPINIROLE HCL 66222115656 Active Tu Landeros MD Active REQUIP 2 MG ORAL TABLET Take one tablet at bedtime prn ROPINIROLE HCL 15419854112 No Longer Active Tu Landeros MD Active VENTOLIN HFA 108 (90 Base) MCG/ACT INHALATION AEROSOL SOLUTION 1-2 puffs every 4 hours if needed for cough/congestion ALBUTEROL SULFATE 23054549476 No Longer Active Ambika Aden APRN Active ZITHROMAX 250 MG ORAL TABLET 2 po today, then 1 po q days 2-5 AZITHROMYCIN 49517184758 No Longer Active Miranda Farah APRN Active FLONASE 50 MCG/ACT NASAL SUSPENSION 1 spray each nostril twice daily until bottle empty FLUTICASONE PROPIONATE 18439324030 No Longer Active Tu Landeros MD Active COLACE 100 MG ORAL CAPSULE 1 po BID PRN Constipation DOCUSATE SODIUM 65788042455 Active Tu Landeros MD Active TRUERESULT BLOOD GLUCOSE w/Device KIT test blood sugar twice daily dx 250.00 BLOOD GLUCOSE MONITORING SUPPL 92130541867 No Longer Active Tu Landeros MD Active TRUEDRAW LANCING DEVICE Test twice a day dx 250.0 LANCET DEVICES 29574460097 No Longer Active Tu Landeros MD Active PREDNISONE 20 MG ORAL TABLET 2 tablets once daily for 2 days, then 1 tablet once daily for 2 days PREDNISONE 17846012280 No Longer Active Tu Landeros MD Active DICLOFENAC SODIUM 50 MG ORAL TABLET DELAYED RELEASE 1 tablet by mouth three times a day as needed DICLOFENAC SODIUM 78464163465 No Longer Active Fab Morales DO Active EMBRACE BLOOD GLUCOSE TEST IN VITRO STRIP test blood sugar twice daily DX 250.0 GLUCOSE BLOOD 52102955506 No Longer Active Tu Landeros MD Active TRUETEST TEST IN VITRO STRIP test blood sugar three times daily dx: 250.00 GLUCOSE BLOOD 47498771847 No Longer Active Suze VOGEL Active TRUERESULT BLOOD GLUCOSE w/Device KIT use to test blood sugar tid dx: 250.00 BLOOD GLUCOSE MONITORING SUPPL 71482680393 No Longer Active Suze Hardenehart JASPREET Active ALIGN 4 MG ORAL CAPSULE 1 tid PROBIOTIC PRODUCT 40756484270 No Longer Active Shaun Sy MD Active CIPRO 500 MG ORAL TABLET 1 bid x 14 days start 09-28-13 CIPROFLOXACIN HCL 05504231433 No Longer Active Shaun Sy MD Active TRAMADOL HCL 50 MG ORAL TABLET 1-2 tablets every 6 hours as needed for pain TRAMADOL HCL 79998171463 Active Tu Landeros MD Active HYDROCODONE-ACETAMINOPHEN 5-325 MG ORAL TABLET 1 tab by mouth every 6 hours as needed for pain HYDROCODONE-ACETAMINOPHEN 16498154898 No Longer Active Tu Landeros MD Active OMEPRAZOLE 20 MG ORAL CAPSULE DELAYED RELEASE 1 po q a.m. OMEPRAZOLE 58129940637 Active Tu Landeros MD Active GABAPENTIN 100 MG ORAL CAPSULE 1 po bid GABAPENTIN 33613336683 No Longer Active Tu Landeros MD Active B-12 100 MCG ORAL TABLET Take one by mouth daily CYANOCOBALAMIN 90949705714 No Longer Active Tu Landeros MD Active BACTRIM DS 800-160 MG ORAL TABLET 1 bid x 14 day start 09-28-13 SULFAMETHOXAZOLE-TRIMETHOPRIM 24546329898 No Longer Active Tu Landeros MD Active CARVEDILOL 12.5 MG ORAL TABLET 1 po BID CARVEDILOL 03920266756 Active Tu Landeros MD Active FENOFIBRATE 145 MG ORAL TABLET 1 po qd FENOFIBRATE 04605943990 No Longer Active JASPREET Perez Active OMEPRAZOLE 20 MG ORAL TABLET DELAYED RELEASE 1 PO 30 MIN BEFORE 1ST MEAL 2010 OMEPRAZOLE 89234306498 No Longer Active JASPREET Perez Active SIMVASTATIN 40 MG ORAL TABLET Take one by mouth daily SIMVASTATIN 96229539693 No Longer Active JASPREET Perez Active VENLAFAXINE HCL 75 MG ORAL TABLET 1 po BID VENLAFAXINE HCL 83966915389 No Longer Active JASPREET Perez Active CIPRO 500 MG ORAL TABLET 1 tablet by mouth twice daily CIPROFLOXACIN HCL 40333756908 No Longer Active Tu Landeros MD Active VENLAFAXINE HCL 37.5 MG ORAL TABLET 1 po BID VENLAFAXINE HCL 59221032889 No Longer Active Suzebianca Seguraart RMA Active LAMISIL 250 MG ORAL TABLET 1 po qd TERBINAFINE HCL 62874182211 No Longer Active Tu Landeros MD Active LORTAB 5-500 MG ORAL TABLET 1/2 to 1 tablet by mouth every 4 hours as needed for pain HYDROCODONE-ACETAMINOPHEN 32723374602 No Longer Active Tu Landeros MD Active HYDROCODONE-ACETAMINOPHEN 5-500 MG ORAL TABLET take one po Q 4-6 hours prn HYDROCODONE-ACETAMINOPHEN 69008319105 No Longer Active Tu Landeros MD Active BACTRIM DS 800-160 MG ORAL TABLET 1 po BID x 7 days SULFAMETHOXAZOLE-TRIMETHOPRIM 50961369098 No Longer Active Tu Landeros MD Active VENLAFAXINE HCL 75 MG ORAL TABLET 1 po BID VENLAFAXINE HCL 83857345195 No Longer Active Elvira Cervantes MD PhD Active TRAMADOL HCL 50 MG ORAL TABLET 1 tablets every 6 hours as needed for pain TRAMADOL HCL 87533603509 No Longer Active Tu Landeros MD Active ACCU-CHEK FASTCLIX LANCETS Use to check bloodsugar three times daily as needed LANCETS 61270133151 No Longer Active Tu Landeros MD Active ACCU-CHEK KEYONA PLUS IN VITRO STRIP Use for testing bloodsugars three times daily as needed GLUCOSE BLOOD 96790756833 No Longer Active Tu Landeros MD Active ACCU-CHEK KEYONA PLUS w/Device KIT Use for testing bloodsugars three times daily as needed BLOOD GLUCOSE MONITORING SUPPL 65430315934 No Longer Active Tu Landeros MD Active SPIRONOLACTONE 25 MG ORAL TABLET 0.5 tablet by mouth daily 09/09 SPIRONOLACTONE 71662820650 No Longer Active Tu Landeros MD Active ALPRAZOLAM 0.5 MG ORAL TABLET 1 tab every 6hrs as needed ALPRAZOLAM 38972663331 No Longer Active Tu Landeros MD Active AUGMENTIN 875-125 MG ORAL TABLET 1 tab by mouth twice daily with food AMOXICILLIN-POT CLAVULANATE 42044083961 No Longer Active Tu Landeros MD Active PREDNISONE 20 MG ORAL TABLET 2 tabs daily for 3 days, 1 tab daily for 3 days, 1/2 tab daily for 2 days PREDNISONE 77829440071 No Longer Active Tu Landeros MD Active XANAX 0.5 MG ORAL TABLET 1 tablet every 6 hrs prn ALPRAZOLAM 23542559218 No Longer Active Tu Landeros MD Active PREDNISONE 20 MG ORAL TABLET 2 tabs daily for 3 days, 1 tab daily for 3 days, 1/2 tab daily for 2 days PREDNISONE 49559639659 No Longer Active Tu Landeros MD Active TRIAMCINOLONE ACETONIDE 0.1 % EXTERNAL OINTMENT Apply to affected areas TID for up to 2 weeks TRIAMCINOLONE ACETONIDE 80237703002 No Longer Active Tu Landeros MD Active LORTAB 5-500 MG ORAL TABLET 1/2 to 1 tablet by mouth every 4 hours as needed for pain HYDROCODONE-ACETAMINOPHEN 47534580775 No Longer Active Tu Landeros MD Active MULTIVITAMINS TABS Take one by mouth daily MULTIPLE VITAMIN 68158768389 No Longer Active Tu Landeros MD Active MELATONIN 5 MG ORAL TABLET Take one by mouth daily MELATONIN 88698499214 No Longer Active Tu Landeros MD Active SOMA 350 MG ORAL TABLET 1 po q 6 hours prn spasm CARISOPRODOL 30982516320 No Longer Active Tu Landeros MD Active MECLIZINE HCL 25 MG ORAL TABLET CHEWABLE 1 four times a day as needed for dizziness MECLIZINE HCL 46112936817 No Longer Active Fab Morales DO Active ANGEL BREEZE 2 TEST IN VITRO DISK test tid prn GLUCOSE BLOOD 61464736916 No Longer Active Negra Scott RN Active REGLAN 10 MG ORAL TABLET 1 po TID PRN Nausea METOCLOPRAMIDE HCL 75686403621 No Longer Active Tu Landeros MD Active METFORMIN HCL 500 MG ORAL TABLET 1 PO BID METFORMIN HCL 34629827096 No Longer Active Tu Landeros MD Active AMBIEN 10 MG ORAL TABLET 1 tab by mouth at bedtime as needed for sleep 06/10 ZOLPIDEM TARTRATE 73060720951 No Longer Active Tu Landeros MD Active FLUOXETINE HCL 40 MG ORAL CAPSULE 1 po q day FLUOXETINE HCL 27464297451 No Longer Active Mayra Sanchezr Active TRILIPIX 135 MG ORAL CAPSULE DELAYED RELEASE 1 po qd CHOLINE FENOFIBRATE 21786635183 No Longer Active Tu Landeros MD Active AMBIEN 10 MG ORAL TABLET 1 tab by mouth at bedtime as needed for sleep 06/10 AMBIEN 10 MG ORAL TABLET 056916 ZOLPIDEM TARTRATE Inactive METFORMIN HCL 500 MG ORAL TABLET 1 PO BID METFORMIN HCL 500 MG ORAL TABLET 781686 METFORMIN HCL Inactive REGLAN 10 MG ORAL TABLET 1 po TID PRN Nausea REGLAN 10 MG ORAL TABLET 429273 METOCLOPRAMIDE HCL Inactive MECLIZINE HCL 25 MG ORAL TABLET CHEWABLE 1 four times a day as needed for dizziness MECLIZINE HCL 25 MG ORAL TABLET CHEWABLE 950014 MECLIZINE HCL Inactive SOMA 350 MG ORAL TABLET 1 po q 6 hours prn spasm SOMA 350 MG ORAL TABLET 148200 CARISOPRODOL Inactive MELATONIN 5 MG ORAL TABLET Take one by mouth daily MELATONIN 5 MG ORAL TABLET 005781 MELATONIN Inactive MULTIVITAMINS TABS Take one by mouth daily MULTIVITAMINS TABS MULTIPLE VITAMIN Inactive LORTAB 5-500 MG ORAL TABLET 1/2 to 1 tablet by mouth every 4 hours as needed for pain LORTAB 5-500 MG ORAL TABLET HYDROCODONE- ACETAMINOPHEN Inactive XANAX 0.5 MG ORAL TABLET 1 tablet every 6 hrs prn XANAX 0.5 MG ORAL TABLET 966404 ALPRAZOLAM Inactive AUGMENTIN 875-125 MG ORAL TABLET 1 tab by mouth twice daily with food AUGMENTIN 875-125 MG ORAL TABLET 212177 AMOXICILLIN-POT CLAVULANATE Inactive ALPRAZOLAM 0.5 MG ORAL TABLET 1 tab every 6hrs as needed ALPRAZOLAM 0.5 MG ORAL TABLET 158074 ALPRAZOLAM Inactive SPIRONOLACTONE 25 MG ORAL TABLET 0.5 tablet by mouth daily 09/09 SPIRONOLACTONE 25 MG ORAL TABLET 622215 SPIRONOLACTONE Inactive ACCU-CHEK KEYONA PLUS w/Device KIT [...] times daily as needed ACCU-CHEK FASTCLIX LANCETS 03096628823 LANCETS Inactive TRAMADOL HCL 50 MG ORAL TABLET 1 tablets every 6 hours as needed for pain TRAMADOL HCL 50 MG ORAL TABLET 597382 TRAMADOL HCL Inactive VENLAFAXINE HCL 75 MG ORAL TABLET 1 po BID VENLAFAXINE HCL 75 MG ORAL TABLET 060763 VENLAFAXINE HCL Inactive HYDROCODONE-ACETAMINOPHEN 5-500 MG ORAL TABLET take one po Q 4-6 hours prn HYDROCODONE-ACETAMINOPHEN 5-500 MG ORAL TABLET HYDROCODONE-ACETAMINOPHEN Inactive LORTAB 5-500 MG ORAL TABLET 1/2 to 1 tablet by mouth every 4 hours as needed for pain LORTAB 5-500 MG ORAL TABLET HYDROCODONE- ACETAMINOPHEN Inactive LAMISIL 250 MG ORAL TABLET 1 po qd LAMISIL 250 MG ORAL TABLET 830025 TERBINAFINE HCL Inactive VENLAFAXINE HCL 37.5 MG ORAL TABLET 1 po BID VENLAFAXINE HCL 37.5 MG ORAL TABLET 247118 VENLAFAXINE HCL Inactive CIPRO 500 MG ORAL TABLET 1 tablet by mouth twice daily CIPRO 500 MG ORAL TABLET 871400 CIPROFLOXACIN HCL Inactive VENLAFAXINE HCL 75 MG ORAL TABLET 1 po BID VENLAFAXINE HCL 75 MG ORAL TABLET 566730 VENLAFAXINE HCL Inactive SIMVASTATIN 40 MG ORAL TABLET Take one by mouth daily SIMVASTATIN 40 MG ORAL TABLET 534587 SIMVASTATIN Inactive OMEPRAZOLE 20 MG ORAL TABLET DELAYED RELEASE 1 PO 30 MIN BEFORE 1ST MEAL 2010 OMEPRAZOLE 20 MG ORAL TABLET DELAYED RELEASE 039527 OMEPRAZOLE Inactive FENOFIBRATE 145 MG ORAL TABLET 1 po qd FENOFIBRATE 145 MG ORAL TABLET 939113 FENOFIBRATE Inactive BACTRIM DS 800-160 MG ORAL TABLET 1 bid x 14 day start 09-28-13 BACTRIM DS 800-160 MG ORAL TABLET 979786 SULFAMETHOXAZOLE- TRIMETHOPRIM Inactive B-12 100 MCG ORAL TABLET Take one by mouth daily B-12 100 MCG ORAL TABLET CYANOCOBALAMIN Inactive GABAPENTIN 100 MG ORAL CAPSULE 1 po bid GABAPENTIN 100 MG ORAL CAPSULE 316209 GABAPENTIN Inactive HYDROCODONE-ACETAMINOPHEN 5-325 MG ORAL TABLET 1 tab by mouth every 6 hours as needed for pain HYDROCODONE-ACETAMINOPHEN 5-325 MG ORAL TABLET 474631 HYDROCODONE-ACETAMINOPHEN Inactive CIPRO 500 MG ORAL TABLET 1 bid x 14 days start 09-28-13 CIPRO 500 MG ORAL TABLET 347451 CIPROFLOXACIN HCL Inactive ALIGN 4 MG ORAL [...] SODIUM 50 MG ORAL TABLET DELAYED RELEASE 834727 DICLOFENAC SODIUM Inactive PREDNISONE 20 MG ORAL TABLET 2 tablets once daily for 2 days, then 1 tablet once daily for 2 days PREDNISONE 20 MG ORAL TABLET 257368 PREDNISONE Inactive TRUEDRAW LANCING DEVICE Test twice a day dx 250.0 TRUEDRAW LANCING DEVICE LANCET DEVICES Inactive TRUERESULT BLOOD GLUCOSE w/Device KIT test blood sugar twice daily dx 250.00 TRUERESULT BLOOD GLUCOSE w/Device KIT BLOOD GLUCOSE MONITORING SUPPL Inactive FLONASE 50 MCG/ACT NASAL SUSPENSION 1 spray each nostril twice daily until bottle empty FLONASE 50 MCG/ACT NASAL SUSPENSION 8547440 FLUTICASONE PROPIONATE Inactive VENTOLIN HFA 108 (90 Base) MCG/ACT INHALATION AEROSOL SOLUTION 1-2 puffs every 4 hours if needed for cough/congestion VENTOLIN HFA 108 (90 Base) MCG/ACT INHALATION AEROSOL SOLUTION ALBUTEROL SULFATE Inactive REQUIP 2 MG ORAL TABLET Take one tablet at bedtime prn REQUIP 2 MG ORAL TABLET 652604 ROPINIROLE HCL Inactive SUPER B COMPLEX/VITAMIN C ORAL TABLET 1 qd SUPER B COMPLEX/VITAMIN C ORAL TABLET 50776393756 B COMPLEX-C Inactive TRUEDRAW LANCING DEVICE test blood sugar twice daily dx: 250.00 TRUEDRAW LANCING DEVICE LANCET DEVICES Inactive TRUETEST TEST IN VITRO STRIP test blood sugar twice daily. DX 250.0 TRUETEST TEST IN VITRO STRIP GLUCOSE BLOOD Inactive CYCLOBENZAPRINE HCL 10 MG ORAL TABLET 1 po TID PRN Muscle Spasm CYCLOBENZAPRINE HCL 10 MG ORAL TABLET 605877 CYCLOBENZAPRINE HCL Inactive DICLOFENAC SODIUM 50 MG ORAL TABLET DELAYED RELEASE 1 po BID PRN Pain DICLOFENAC SODIUM 50 MG ORAL TABLET DELAYED RELEASE 767158 DICLOFENAC SODIUM Inactive DICLOFENAC SODIUM 75 MG ORAL TABLET DELAYED RELEASE 1 po BID PRN Pain DICLOFENAC SODIUM 75 MG ORAL TABLET DELAYED RELEASE 111145 DICLOFENAC SODIUM Inactive NASONEX 50 MCG/ACT NASAL SUSPENSION 2 actuations in each nostril q day 07/15 NASONEX 50 MCG/ACT NASAL SUSPENSION 6611745 MOMETASONE FUROATE Inactive GUAIFENESIN ER 600 MG ORAL TABLET EXTENDED RELEASE 12 HOUR 1 twice a day as needed for congestion GUAIFENESIN ER 600 MG ORAL TABLET EXTENDED RELEASE 12 HOUR GUAIFENESIN Inactive AZITHROMYCIN 250 MG ORAL TABLET 2 po qd x 1, then 1 po qd x 4 AZITHROMYCIN 250 MG ORAL TABLET 470598 AZITHROMYCIN Inactive PROMETHAZINE-CODEINE 6.25-10 MG/5ML ORAL SYRUP 5ml po q6hr PRN Cough PROMETHAZINE-CODEINE 6.25-10 MG/5ML ORAL SYRUP 596927 PROMETHAZINE-CODEINE Inactive TRILIPIX 135 MG ORAL CAPSULE DELAYED RELEASE 1 q hs TRILIPIX 135 MG ORAL CAPSULE DELAYED RELEASE 085855 CHOLINE FENOFIBRATE Inactive TRIAMCINOLONE ACETONIDE 0.1 % EXTERNAL OINTMENT Apply to affected areas TID for up to 2 weeks TRIAMCINOLONE ACETONIDE 0.1 % EXTERNAL OINTMENT 2798429 TRIAMCINOLONE ACETONIDE Inactive PREDNISONE 20 MG ORAL TABLET 2 tabs daily for 3 days, 1 tab daily for 3 days, 1/2 tab daily for 2 days PREDNISONE 20 MG ORAL TABLET 916512 PREDNISONE Inactive PREDNISONE 20 MG ORAL TABLET 2 tabs daily for 3 days, 1 tab daily for 3 days, 1/2 tab daily for 2 days PREDNISONE 20 MG ORAL TABLET 034850 PREDNISONE Inactive BACTRIM DS 800-160 MG ORAL TABLET 1 po BID x 7 days BACTRIM DS 800-160 MG ORAL TABLET 330543 SULFAMETHOXAZOLE-TRIMETHOPRIM Inactive ZITHROMAX 250 MG ORAL TABLET 2 po today, then 1 po q days 2-5 ZITHROMAX 250 MG ORAL TABLET 197613 AZITHROMYCIN Inactive PREDNISONE 20 MG ORAL TABLET 2 po qd x 5 days PREDNISONE 20 MG ORAL TABLET 136905 PREDNISONE Inactive Advance Directives Directive Description Start Date DISCUSSED WITH PATIENT -- NO DECISION MADE Immunizations Vaccine Administration Date Value Standard Description Seasonal influenza vaccine, injectable, containing preservative, for > 3 years old (Afluria, FluLaval, Fluzone, Fluvirin, Fluarix, Agriflu(>=18 yo)) Fluzone (>3 yrs.) [[id number]] Influenza, seasonal, injectable influenza immunization (Flu Vax) has been administered 02/22/2012 influenza virus vaccine, unspecified formulation Seasonal influenza vaccine, injectable, containing preservative, for > 3 years old (Afluria, FluLaval, Fluzone, Fluvirin, Fluarix, Agriflu(>=18 yo)) Fluzone (>3 yrs.) [[id number]] Influenza, seasonal, injectable Vital Signs Date Name [...] ... - Chemistry sodium, serum 141 mmol/L 369-335 2899/01/16 carbon dioxide, venous blood 28.3 mmol/L 21.0-32.0 [...] 6.7 % 4.3-6.0 cholesterol, serum 106 mg/dL 975-291 1799/01/16 triglyceride, serum, fasting 173 mg/dL 30-200 HDL [...] Magnesium - Chemistry sodium, serum 142 mmol/L 444-967 1045/07/16 carbon dioxide, venous blood 29.4 mmol/L 21.0-32.0 [...] Panel - Chemistry cholesterol, serum 170 mg/dL 331-345 9302/07/16 triglyceride, serum, fasting 266 mg/dL 30-200 HDL cholesterol, serum 42 mg/dL 32-60 LDL cholesterol, serum 75 mg/dL 0-130 Encounters Code Encounter Date Provider Facility CPT-38285 Level 4 Est. Patient 14:46:36 CDT Tu Landeros MD [facility] CPT-96702 Level 3 Est. Patient 10:28:05 CDT Tu Landeros MD [facility] CPT-20902 Level 3 Est. Patient 09:11:32 CDT Tu Landeros MD [facility] CPT-86353 Level 3 Est. Patient 10:13:19 BLANKET MAKER Lesli Kellogg APRN [facility] CPT-58070 Level 4 Est. Patient 13:42:02 BLANKET MAKER Tu Landeros MD [facility] CPT-44585 Level 3 Est. Patient 14:20:36 CDT Tu Landeros MD [facility] CPT-22660 Level 4 Est. Patient 14:28:34 CDT Tu Landeros MD [facility] CPT-92069 Level 3 Est. Patient 13:33:09 CDT Tu Landeros MD [facility] CPT-84398 Level 4 Est. Patient 14:29:21 CDT Tu Landeros MD [facility] CPT-50924 Level 4 Est. Patient 09:08:17 BLANKET MAKER Tu Landeros MD [facility] CPT-20844 Level 4 Est. Patient 14:40:19 CDT Tu Landeros MD [facility] CPT-97800 Level 4 Est. Patient 14:06:04 BLANKET MAKER Tu Landeros MD [facility] CPT-68499 Level 3 Est. Patient 14:05:18 BLANKET MAKER Tu Landeros MD [facility] CPT-78787 Level 3 Est. Patient 10:06:54 BLANKET MAKER Miranda Farah APRN [facility] CPT-62447 Level 4 Est. Patient 13:50:18 BLANKET MAKER Tu Landeros MD [facility] CPT-22301 Level 3 Est. Patient 10:30:04 CDT Tu Landeros MD [facility] CPT-35538 Level 4 Est. Patient 11:03:38 CDT Tu Landeros MD [facility] CPT-32283 Level 3 Est. Patient 10:20:44 CDT Fab Morales DO [facility] CPT-94997 Level 4 Est. Patient 14:38:57 CDT Tu Landeros MD [facility] CPT-41272 Level 4 Est. Patient 14:27:39 BLANKET MAKER Tu Landeros MD [facility] CPT-51210 Level 4 Est. Patient 09:45:25 CDT Tu Landeros MD [facility] CPT-38975 Level 4 Est. Patient 09:05:20 BLANKET MAKER Tu Landeros MD [facility] CPT-91372 Level 4 Est. Patient 14:09:06 CDT Tu Landeros MD [facility] CPT-10624 Level 3 Est. Patient 13:36:54 CDT Tu Landeros MD [facility] CPT-72452 Level 3 Est. Patient 08:59:14 CDT Tu Landeros MD [facility] CPT-12533 Level 3 Est. Patient 13:48:35 CDT Fab Morales DO [facility] CPT-35799 Level 4 Est. Patient 10:05:48 CDT Tu Landeros MD [facility] CPT-08555 Level 3 Est. Patient 13:38:42 CDT Marek BANKS [facility] CPT-93756 Level 5 Est. Patient 08:08:39 CDT Jerrica FRANCIS [facility] CPT-63813 Level 4 Est. Patient 14:23:38 CDT Tu Landeros MD [facility] CPT-13338 Level 3 Est. Patient 11:44:04 CDT Tu Landeros MD [facility] CPT-91626 Level 3 Est. Patient 11:03:20 BLANKET MAKER Tu Landeros MD [facility] CPT-25087 Level 3 Est. Patient 11:03:14 BLANKET MAKER Tu Landeros MD [facility] CPT-66109 Level 3 Est. Patient 12:42:49 CDT Tu Landeros MD [facility] CPT-50824 Level 3 Est. Patient 11:52:06 CDT Tu Landeros MD [facility] CPT-76130 Level 3 Est. Patient 13:58:11 CDT Tu Landeros MD [facility] CPT-76053 Level 3 Est. Patient 17:50:07 CDT Fab Morales DO [facility] CPT-22892 Level 3 Est. Patient 12:06:29 CDT Elvira Cervantes MD, PhD [facility] CPT-02923 Level 3 Est. Patient 15:50:32 CDT Tu Landeros MD [facility] CPT-69442 Level 4 Est. Patient 16:08:29 CDT Tu Landeros MD [facility] CPT-59855 Level 3 Est. Patient 16:04:19 CDT Tu Landeros MD [facility] CPT-30796 Level 3 Est. Patient 11:22:30 BLANKET MAKER Tu Landeros MD [facility] CPT-71319 Level 4 Est. Patient 16:24:02 BLANKET MAK[employer] Tu Landeros MD [facility] CPT-82547 Level 3 Est. Patient 17:21:23 BLANKET MAK[employer] Tu Landeros MD [facility] Procedures Code Procedure Name Date Entry Date Standard Description CPT-G0439 Subsequent Annual Wellness Exam 14:46:36 CDT CPT-37881 Shoulder, right, comp min 2V - XRAY USE ONLY 13:50:22 CDT CPT-G0009 Administration of Pneumococcal Vaccine 15:08:26 CDT CPT-63978 Prevnar 13 Intramuscular Suspension 15:08:26 CDT 10/08 CPT-G0439 Subsequent Annual Wellness Exam 14:29:22 CDT CPT-80842 Venipuncture Draw Fee 13:15:35 CDT CPT-13631 Magnesium - LAB USE ONLY 11:14:20 BLANKET MAK[employer] CPT-26029 Lipid - LAB USE ONLY 11:14:20 BLANKET MAKER CPT-56535 HGBA1C - LAB USE ONLY 11:14:20 BLANKET MAK[employer] CPT-15497 CMP - LAB USE ONLY 11:14:19 BLANKET MAK[employer] CPT-12447 CBC - LAB USE ONLY 11:14:19 BLANKET [employer] CPT-88309 Venipuncture Draw Fee 11:14:18 BLANKET MAKER CPT-06380 First Vx - Ix admin for Medicare patients 16:46:52 CDT CPT-65464 Fluzone Preservative Free Intramuscular Suspension 16:46 :51 CDT CPT-03914 CBC - LAB USE ONLY 17:14:46 CDT CPT-39054 HGBA1C - LAB USE ONLY 17:14:46 CDT CPT-19508 Venipuncture Draw Fee 17:14:46 CDT CPT-G0438 Initial Annual Wellness Exam 14:13:04 CDT CPT-90429 Breathing Tx 10:06:54 BLANKET [employer] CPT-24856 Postop F/U Visit 10:02:45 CDT CPT-LR Lesion Removal 09:02:56 CDT CPT-JTINJ Asp/Joint Injection 15:51:27 BLANKET [employer]KER CPT-OV Office Visit 15:52:02 BLANKET MAKER CPT-OV Office Visit 15:45:11 CDT CPT-000 Give Zostavax 14:09:06 CDT CPT-55641 Administration single or combination vaccine inc oral 15 :19:04 CDT CPT-62484 Zoster Vaccine (Zostavax) 15:19:04 CDT CPT-76106 Administration single or combination vaccine inc oral 20 :51:03 CDT CPT-53521 Influenza split virus > age 3 20:51:03 CDT CPT-12118 No Charge Offi Visit 14:52:03 CDT CPT-OV Office Visit 14:57:43 CDT CPT-OV Office Visit 15:22:32 CDT CPT-86072 Administration single or combination vaccine inc oral 11 :33:15 CDT CPT-46386 Influenza split virus > age 3 11:33:15 CDT
--- OUTSIDE RECORDS SUMMARY | 2018-04-25 12:14 | XMS REPORT | Clinical Summary ---
Author Author Admin, SACHI Organization [employer] Address Unknown Phone Unavailable Allergies, Adverse Reactions, [...] magnesium metabolism URI 465.9 Inactive Lesli Kellogg FINISHED YARN EXAMINER Acute upper respiratory infections of unspecified site [...] Inactive Tu Landeros MD ARTHRITIS ICD-716.90 Inactive uT Landeros MD KNEE PAIN ICD-719.46 Inactive Tu Landeros MD CONTUSION OF UNSPECIFIED SITE ICD-924.9 Inactive Tu Landeros MD PRESSURE ULCER UNSPECIFIED SITE ICD-707.00 Inactive uT Landeros MD LOCALIZED SUPERFICIAL SWELLING MASS OR [...] Instructions Start Date Stop Date Generic Name ND Status Provider Patient Instruction TRIAMCINOLONE ACETONIDE 0.1 % EXTERNAL CREAM Apply to affected area TID for up to 2 weeks TRIAMCINOLONE ACETONIDE 11802319237 Active Tu Landeros MD Active INDOMETHACIN 50 MG ORAL CAPSULE 1 po TID PRN Pain INDOMETHACIN 27938346022 Active Tu Landeros MD Active PROMETHAZINE-CODEINE 6.25-10 MG/5ML ORAL SYRUP 5ml po q6hr PRN Cough PROMETHAZINE-CODEINE 38746832013 No Longer Active Tu Landeros MD Active AZITHROMYCIN 250 MG ORAL TABLET 2 po qd x 1, then 1 po qd x 4 AZITHROMYCIN 14504743743 No Longer Active Tu Landeros MD Active GUAIFENESIN ER 600 MG ORAL TABLET EXTENDED RELEASE 12 HOUR 1 twice a day as needed for congestion GUAIFENESIN 40777023675 No Longer Active Tu Landeros MD Active PREDNISONE 20 MG ORAL TABLET 2 po qd x 5 days PREDNISONE 80002868173 No Longer Active Tu Landeros MD Active FLUTICASONE PROPIONATE 50 MCG/ACT NASAL SUSPENSION 2 sprays/nostril qd PRN Congestion/Allergies FLUTICASONE PROPIONATE 43775274716 Active Tu Landeros MD Active NASONEX 50 MCG/ACT NASAL SUSPENSION 2 actuations in each nostril q day 07/15 MOMETASONE FUROATE 41821861318 No Longer Active Tu Landeros MD Active MAGNESIUM OXIDE 400 MG ORAL TABLET 1 po BID MAGNESIUM OXIDE 75116517294 Active Tu Landeros MD Active SIMVASTATIN 20 MG ORAL TABLET 0.5 po qHS SIMVASTATIN 59253596899 Active Tu Landeros MD Active DICLOFENAC SODIUM 75 MG ORAL TABLET DELAYED RELEASE 1 po BID PRN Pain DICLOFENAC SODIUM 76223524996 No Longer Active Tu Landeros MD Active GABAPENTIN 100 MG ORAL CAPSULE 1 po TID GABAPENTIN 14258783177 Active Tu Landeros MD Active DICLOFENAC SODIUM 50 MG ORAL TABLET DELAYED RELEASE 1 po BID PRN Pain DICLOFENAC SODIUM 48453290498 No Longer Active Tu Landeros MD Active CYCLOBENZAPRINE HCL 10 MG ORAL TABLET 1 po TID PRN Muscle Spasm CYCLOBENZAPRINE HCL 53432558471 No Longer Active Tu Landeros MD Active INVOKANA 100 MG ORAL TABLET 1 po qd CANAGLIFLOZIN 24185630291 Active José Luis Becerra MD Active GLIPIZIDE 5 MG ORAL TABLET 1 po qd GLIPIZIDE 55688092621 No Longer Active Tu Landeros MD Active VENLAFAXINE HCL 75 MG ORAL TABLET 1 po BID VENLAFAXINE HCL 49329405779 Active Tu Landeros MD Active GLIMEPIRIDE 1 MG ORAL TABLET 1 po qd GLIMEPIRIDE 12282587219 No Longer Active Tu Landeros MD Active TRUE METRIX BLOOD GLUCOSE TEST IN VITRO STRIP Test blood sugar BID Dx: E11.9 GLUCOSE BLOOD 28800199723 Active Tu Landeros MD Active TRUE METRIX AIR GLUCOSE METER w/Device KIT Test blood glucose BID Dx: E11.9 BLOOD GLUCOSE MONITORING SUPPL 08641375744 Active Tu Landeros MD Active TRUETEST TEST IN VITRO STRIP test blood sugar twice daily. DX 250.0 GLUCOSE BLOOD 51971484415 No Longer Active Mirna Stanley LPN Active TRUEDRAW LANCING DEVICE test blood sugar twice daily dx: 250.00 LANCET DEVICES 00474447005 No Longer Active Mirna Stanley LPN Active ENALAPRIL MALEATE 20 MG ORAL TABLET 2 po qd ENALAPRIL MALEATE 18254652535 Active Tu Landeros MD Active SUPER B COMPLEX/VITAMIN C ORAL TABLET 1 qd B COMPLEX- C 96544706920 No Longer Active Tu Landeros MD Active ASPIRIN EC 81 MG ORAL TABLET DELAYED RELEASE 1 po qd ASPIRIN 79805506483 Active Tu Landeros MD Active GLUCOSAMINE 500 MG TABS 2 po qd GLUCOSAMINE Active Tu Landeros MD Active FISH OIL 1000 MG ORAL CAPSULE 1 po qd OMEGA-3 FATTY ACIDS 60841948229 Active Tu Landeros MD Active METFORMIN HCL 1000 MG ORAL TABLET 1 po BID METFORMIN HCL 23150529805 Active Tu Landeros MD Active KLOR-CON 10 10 MEQ ORAL TABLET EXTENDED RELEASE 2 po qd POTASSIUM CHLORIDE 42156398433 Active Tu Landeros MD Active FUROSEMIDE 40 MG ORAL TABLET 1 po qd FUROSEMIDE 90716834170 Active Tu Landeros MD Active REQUIP 2 MG ORAL TABLET 1 po qHS PRN Restless legs ROPINIROLE HCL 34682170692 Active Tu Landeros MD Active REQUIP 2 MG ORAL TABLET Take one tablet at bedtime prn ROPINIROLE HCL 04759367283 No Longer Active Tu Landeros MD Active VENTOLIN HFA 108 (90 Base) MCG/ACT INHALATION AEROSOL SOLUTION 1-2 puffs every 4 hours if needed for cough/congestion ALBUTEROL SULFATE 49440450641 No Longer Active Ambika Aden APRN Active ZITHROMAX 250 MG ORAL TABLET 2 po today, then 1 po q days 2-5 AZITHROMYCIN 36749992164 No Longer Active Miranda Farah APRN Active FLONASE 50 MCG/ACT NASAL SUSPENSION 1 spray each nostril twice daily until bottle empty FLUTICASONE PROPIONATE 08158561692 No Longer Active Tu Landeros MD Active COLACE 100 MG ORAL CAPSULE 1 po BID PRN Constipation DOCUSATE SODIUM 06438675481 Active Tu Landeros MD Active TRUERESULT BLOOD GLUCOSE w/Device KIT test blood sugar twice daily dx 250.00 BLOOD GLUCOSE MONITORING SUPPL 00847597151 No Longer Active Tu Landeros MD Active TRUEDRAW LANCING DEVICE Test twice a day dx 250.0 LANCET DEVICES 99337741588 No Longer Active Tu Landeros MD Active PREDNISONE 20 MG ORAL TABLET 2 tablets once daily for 2 days, then 1 tablet once daily for 2 days PREDNISONE 74090048629 No Longer Active Tu Landeros MD Active DICLOFENAC SODIUM 50 MG ORAL TABLET DELAYED RELEASE 1 tablet by mouth three times a day as needed DICLOFENAC SODIUM 11280318090 No Longer Active Fab Morales DO Active EMBRACE BLOOD GLUCOSE TEST IN VITRO STRIP test blood sugar twice daily DX 250.0 GLUCOSE BLOOD 78503574849 No Longer Active Tu Landeros MD Active TRUETEST TEST IN VITRO STRIP test blood sugar three times daily dx: 250.00 GLUCOSE BLOOD 29503407042 No Longer Active Suze VOGEL Active TRUERESULT BLOOD GLUCOSE w/Device KIT use to test blood sugar tid dx: 250.00 BLOOD GLUCOSE MONITORING SUPPL 91756909904 No Longer Active Suzebianca VOGEL Active ALIGN 4 MG ORAL CAPSULE 1 tid PROBIOTIC PRODUCT 38957793918 No Longer Active Shaun Sy MD Active CIPRO 500 MG ORAL TABLET 1 bid x 14 days start 09-28-13 CIPROFLOXACIN HCL 18872924285 No Longer Active Shaun Sy MD Active TRAMADOL HCL 50 MG ORAL TABLET 1-2 tablets every 6 hours as needed for pain TRAMADOL HCL 33150170226 Active Tu Landeros MD Active HYDROCODONE-ACETAMINOPHEN 5-325 MG ORAL TABLET 1 tab by mouth every 6 hours as needed for pain HYDROCODONE-ACETAMINOPHEN 41667932552 No Longer Active Tu Landeros MD Active OMEPRAZOLE 20 MG ORAL CAPSULE DELAYED RELEASE 1 po q a.m. OMEPRAZOLE 24134203053 Active Tu Landeros MD Active GABAPENTIN 100 MG ORAL CAPSULE 1 po bid GABAPENTIN 48185921585 No Longer Active Tu Landeros MD Active B-12 100 MCG ORAL TABLET Take one by mouth daily CYANOCOBALAMIN 46444041387 No Longer Active Tu Landeros MD Active BACTRIM DS 800-160 MG ORAL TABLET 1 bid x 14 day start 09-28-13 SULFAMETHOXAZOLE-TRIMETHOPRIM 68883606165 No Longer Active Tu Landeros MD Active CARVEDILOL 12.5 MG ORAL TABLET 1 po BID CARVEDILOL 05984411724 Active Tu Landeros MD Active TRILIPIX 135 MG ORAL CAPSULE DELAYED RELEASE 1 q hs CHOLINE FENOFIBRATE 55361986480 Active Tu Landeros MD Active FENOFIBRATE 145 MG ORAL TABLET 1 po qd FENOFIBRATE 43762283383 No Longer Active JASPREET Perez Active OMEPRAZOLE 20 MG ORAL TABLET DELAYED RELEASE 1 PO 30 MIN BEFORE 1ST MEAL 2010 OMEPRAZOLE 44026806876 No Longer Active JASPREET Perez Active SIMVASTATIN 40 MG ORAL TABLET Take one by mouth daily SIMVASTATIN 84017614688 No Longer Active [place] Cofield, RMA Active VENLAFAXINE HCL 75 MG ORAL TABLET 1 po BID VENLAFAXINE HCL 47034941124 No Longer Active JASPREET Perez Active CIPRO 500 MG ORAL TABLET 1 tablet by mouth twice daily CIPROFLOXACIN HCL 02342817937 No Longer Active Tu Landeros MD Active VENLAFAXINE HCL 37.5 MG ORAL TABLET 1 po BID VENLAFAXINE HCL 99539774153 No Longer Active Suze Nicole NURYSA Active LAMISIL 250 MG ORAL TABLET 1 po qd TERBINAFINE HCL 23055182546 No Longer Active Tu Landeros MD Active LORTAB 5-500 MG ORAL TABLET 1/2 to 1 tablet by mouth every 4 hours as needed for pain HYDROCODONE-ACETAMINOPHEN 74414084233 No Longer Active Tu Landeros MD Active HYDROCODONE-ACETAMINOPHEN 5-500 MG ORAL TABLET take one po Q 4-6 hours prn HYDROCODONE-ACETAMINOPHEN 53828456022 No Longer Active Tu Landeros MD Active BACTRIM DS 800-160 MG ORAL TABLET 1 po BID x 7 days SULFAMETHOXAZOLE-TRIMETHOPRIM 85410713674 No Longer Active Tu Landeros MD Active VENLAFAXINE HCL 75 MG ORAL TABLET 1 po BID VENLAFAXINE HCL 60547942566 No Longer Active Elvira Cervantes MD PhD Active TRAMADOL HCL 50 MG ORAL TABLET 1 tablets every 6 hours as needed for pain TRAMADOL HCL 53635290829 No Longer Active Tu Landeros MD Active ACCU-CHEK FASTCLIX LANCETS Use to check bloodsugar three times daily as needed LANCETS 09880914359 No Longer Active Tu Landeros MD Active ACCU-CHEK KEYONA PLUS IN VITRO STRIP Use for testing bloodsugars three times daily as needed GLUCOSE BLOOD 47769981541 No Longer Active Tu Landeros MD Active ACCU-CHEK KEYONA PLUS w/Device KIT Use for testing bloodsugars three times daily as needed BLOOD GLUCOSE MONITORING SUPPL 09011340887 No Longer Active Tu Landeros MD Active SPIRONOLACTONE 25 MG ORAL TABLET 0.5 tablet by mouth daily 09/09 SPIRONOLACTONE 52222200933 No Longer Active Tu Landeros MD Active ALPRAZOLAM 0.5 MG ORAL TABLET 1 tab every 6hrs as needed ALPRAZOLAM 49603852249 No Longer Active Tu Landeros MD Active AUGMENTIN 875-125 MG ORAL TABLET 1 tab by mouth twice daily with food AMOXICILLIN-POT CLAVULANATE 34617033816 No Longer Active Tu Landeros MD Active PREDNISONE 20 MG ORAL TABLET 2 tabs daily for 3 days, 1 tab daily for 3 days, 1/2 tab daily for 2 days PREDNISONE 46155058000 No Longer Active Tu Landeros MD Active XANAX 0.5 MG ORAL TABLET 1 tablet every 6 hrs prn ALPRAZOLAM 49965979123 No Longer Active Tu Landeros MD Active PREDNISONE 20 MG ORAL TABLET 2 tabs daily for 3 days, 1 tab daily for 3 days, 1/2 tab daily for 2 days PREDNISONE 98614713265 No Longer Active Tu Landeros MD Active TRIAMCINOLONE ACETONIDE 0.1 % EXTERNAL OINTMENT Apply to affected areas TID for up to 2 weeks TRIAMCINOLONE ACETONIDE 70100358189 No Longer Active Tu Landeros MD Active LORTAB 5-500 MG ORAL TABLET 1/2 to 1 tablet by mouth every 4 hours as needed for pain HYDROCODONE-ACETAMINOPHEN 10847438518 No Longer Active Tu Landeros MD Active MULTIVITAMINS TABS Take one by mouth daily MULTIPLE VITAMIN 27003078872 No Longer Active Tu Landeros MD Active MELATONIN 5 MG ORAL TABLET Take one by mouth daily MELATONIN 11701473044 No Longer Active Tu Landeros MD Active SOMA 350 MG ORAL TABLET 1 po q 6 hours prn spasm CARISOPRODOL 66569147268 No Longer Active Tu Landeros MD Active MECLIZINE HCL 25 MG ORAL TABLET CHEWABLE 1 four times a day as needed for dizziness MECLIZINE HCL 23132286857 No Longer Active Fab Morales DO Active ANGEL BREEZE 2 TEST IN VITRO DISK test tid prn GLUCOSE BLOOD 68544116185 No Longer Active Negra Scott RN Active REGLAN 10 MG ORAL TABLET 1 po TID PRN Nausea METOCLOPRAMIDE HCL 53288770081 No Longer Active Tu Landeros MD Active METFORMIN HCL 500 MG ORAL TABLET 1 PO BID METFORMIN HCL 19455067759 No Longer Active Tu Landeros MD Active AMBIEN 10 MG ORAL TABLET 1 tab by mouth at bedtime as needed for sleep 06/10 ZOLPIDEM TARTRATE 61991908193 No Longer Active Tu Landeros MD Active FLUOXETINE HCL 40 MG ORAL CAPSULE 1 po q day FLUOXETINE HCL 87026552306 No Longer Active Mayra Terry Active TRILIPIX 135 MG ORAL CAPSULE DELAYED RELEASE 1 po qd CHOLINE FENOFIBRATE 40420723092 No Longer Active Tu Landeros MD Active AMBIEN 10 MG ORAL TABLET 1 tab by mouth at bedtime as needed for sleep 06/10 AMBIEN 10 MG ORAL TABLET 790685 ZOLPIDEM TARTRATE Inactive METFORMIN HCL 500 MG ORAL TABLET 1 PO BID METFORMIN HCL 500 MG ORAL TABLET 418873 METFORMIN HCL Inactive REGLAN 10 MG ORAL TABLET 1 po TID PRN Nausea REGLAN 10 MG ORAL TABLET 963404 METOCLOPRAMIDE HCL Inactive MECLIZINE HCL 25 MG ORAL TABLET CHEWABLE 1 four times a day as needed for dizziness MECLIZINE HCL 25 MG ORAL TABLET CHEWABLE 109456 MECLIZINE HCL Inactive SOMA 350 MG ORAL TABLET 1 po q 6 hours prn spasm SOMA 350 MG ORAL TABLET 043278 CARISOPRODOL Inactive MELATONIN 5 MG ORAL TABLET Take one by mouth daily MELATONIN 5 MG ORAL TABLET 667937 MELATONIN Inactive MULTIVITAMINS TABS Take one by mouth daily MULTIVITAMINS TABS MULTIPLE VITAMIN Inactive LORTAB 5-500 MG ORAL TABLET 1/2 to 1 tablet by mouth every 4 hours as needed for pain LORTAB 5-500 MG ORAL TABLET HYDROCODONE- ACETAMINOPHEN Inactive XANAX 0.5 MG ORAL TABLET 1 tablet every 6 hrs prn XANAX 0.5 MG ORAL TABLET 500441 ALPRAZOLAM Inactive AUGMENTIN 875-125 MG ORAL TABLET 1 tab by mouth twice daily with food AUGMENTIN 875-125 MG ORAL TABLET 226727 AMOXICILLIN-POT CLAVULANATE Inactive ALPRAZOLAM 0.5 MG ORAL TABLET 1 tab every 6hrs as needed ALPRAZOLAM 0.5 MG ORAL TABLET 216997 ALPRAZOLAM Inactive SPIRONOLACTONE 25 MG ORAL TABLET 0.5 tablet by mouth daily 09/09 SPIRONOLACTONE 25 MG ORAL TABLET 008563 SPIRONOLACTONE Inactive ACCU-CHEK KEYONA PLUS w/Device KIT [...] times daily as needed ACCU-CHEK FASTCLIX LANCETS 22066033556 LANCETS Inactive TRAMADOL HCL 50 MG ORAL TABLET 1 tablets every 6 hours as needed for pain TRAMADOL HCL 50 MG ORAL TABLET 383598 TRAMADOL HCL Inactive VENLAFAXINE HCL 75 MG ORAL TABLET 1 po BID VENLAFAXINE HCL 75 MG ORAL TABLET 911283 VENLAFAXINE HCL Inactive HYDROCODONE-ACETAMINOPHEN 5-500 MG ORAL TABLET take one po Q 4-6 hours prn HYDROCODONE-ACETAMINOPHEN 5-500 MG ORAL TABLET HYDROCODONE-ACETAMINOPHEN Inactive LORTAB 5-500 MG ORAL TABLET 1/2 to 1 tablet by mouth every 4 hours as needed for pain LORTAB 5-500 MG ORAL TABLET HYDROCODONE- ACETAMINOPHEN Inactive LAMISIL 250 MG ORAL TABLET 1 po qd LAMISIL 250 MG ORAL TABLET 466349 TERBINAFINE HCL Inactive VENLAFAXINE HCL 37.5 MG ORAL TABLET 1 po BID VENLAFAXINE HCL 37.5 MG ORAL TABLET 636683 VENLAFAXINE HCL Inactive CIPRO 500 MG ORAL TABLET 1 tablet by mouth twice daily CIPRO 500 MG ORAL TABLET 089116 CIPROFLOXACIN HCL Inactive VENLAFAXINE HCL 75 MG ORAL TABLET 1 po BID VENLAFAXINE HCL 75 MG ORAL TABLET 529599 VENLAFAXINE HCL Inactive SIMVASTATIN 40 MG ORAL TABLET Take one by mouth daily SIMVASTATIN 40 MG ORAL TABLET 259103 SIMVASTATIN Inactive OMEPRAZOLE 20 MG ORAL TABLET DELAYED RELEASE 1 PO 30 MIN BEFORE 1ST MEAL 2010 OMEPRAZOLE 20 MG ORAL TABLET DELAYED RELEASE 755311 OMEPRAZOLE Inactive FENOFIBRATE 145 MG ORAL TABLET 1 po qd FENOFIBRATE 145 MG ORAL TABLET 442671 FENOFIBRATE Inactive BACTRIM DS 800-160 MG ORAL TABLET 1 bid x 14 day start 09-28-13 BACTRIM DS 800-160 MG ORAL TABLET 205066 SULFAMETHOXAZOLE- TRIMETHOPRIM Inactive B-12 100 MCG ORAL TABLET Take one by mouth daily B-12 100 MCG ORAL TABLET CYANOCOBALAMIN Inactive GABAPENTIN 100 MG ORAL CAPSULE 1 po bid GABAPENTIN 100 MG ORAL CAPSULE 269902 GABAPENTIN Inactive HYDROCODONE-ACETAMINOPHEN 5-325 MG ORAL TABLET 1 tab by mouth every 6 hours as needed for pain HYDROCODONE-ACETAMINOPHEN 5-325 MG ORAL TABLET 712084 HYDROCODONE-ACETAMINOPHEN Inactive CIPRO 500 MG ORAL TABLET 1 bid x 14 days start 09-28-13 CIPRO 500 MG ORAL TABLET 246606 CIPROFLOXACIN HCL Inactive ALIGN 4 MG ORAL [...] SODIUM 50 MG ORAL TABLET DELAYED RELEASE 616629 DICLOFENAC SODIUM Inactive PREDNISONE 20 MG ORAL TABLET 2 tablets once daily for 2 days, then 1 tablet once daily for 2 days PREDNISONE 20 MG ORAL TABLET 277090 PREDNISONE Inactive TRUEDRAW LANCING DEVICE Test twice a day dx 250.0 TRUEDRAW LANCING DEVICE LANCET DEVICES Inactive TRUERESULT BLOOD GLUCOSE w/Device KIT test blood sugar twice daily dx 250.00 TRUERESULT BLOOD GLUCOSE w/Device KIT BLOOD GLUCOSE MONITORING SUPPL Inactive FLONASE 50 MCG/ACT NASAL SUSPENSION 1 spray each nostril twice daily until bottle empty FLONASE 50 MCG/ACT NASAL SUSPENSION 7473060 FLUTICASONE PROPIONATE Inactive VENTOLIN HFA 108 (90 Base) MCG/ACT INHALATION AEROSOL SOLUTION 1-2 puffs every 4 hours if needed for cough/congestion VENTOLIN HFA 108 (90 Base) MCG/ACT INHALATION AEROSOL SOLUTION ALBUTEROL SULFATE Inactive REQUIP 2 MG ORAL TABLET Take one tablet at bedtime prn REQUIP 2 MG ORAL TABLET 513713 ROPINIROLE HCL Inactive SUPER B COMPLEX/VITAMIN C ORAL TABLET 1 qd SUPER B COMPLEX/VITAMIN C ORAL TABLET 57577832813 B COMPLEX-C Inactive TRUEDRAW LANCING DEVICE test blood sugar twice daily dx: 250.00 TRUEDRAW LANCING DEVICE LANCET DEVICES Inactive TRUETEST TEST IN VITRO STRIP test blood sugar twice daily. DX 250.0 TRUETEST TEST IN VITRO STRIP GLUCOSE BLOOD Inactive CYCLOBENZAPRINE HCL 10 MG ORAL TABLET 1 po TID PRN Muscle Spasm CYCLOBENZAPRINE HCL 10 MG ORAL TABLET 737611 CYCLOBENZAPRINE HCL Inactive DICLOFENAC SODIUM 50 MG ORAL TABLET DELAYED RELEASE 1 po BID PRN Pain DICLOFENAC SODIUM 50 MG ORAL TABLET DELAYED RELEASE 916400 DICLOFENAC SODIUM Inactive DICLOFENAC SODIUM 75 MG ORAL TABLET DELAYED RELEASE 1 po BID PRN Pain DICLOFENAC SODIUM 75 MG ORAL TABLET DELAYED RELEASE 973772 DICLOFENAC SODIUM Inactive NASONEX 50 MCG/ACT NASAL SUSPENSION 2 actuations in each nostril q day 07/15 NASONEX 50 MCG/ACT NASAL SUSPENSION 4144514 MOMETASONE FUROATE Inactive GUAIFENESIN ER 600 MG ORAL TABLET EXTENDED RELEASE 12 HOUR 1 twice a day as needed for congestion GUAIFENESIN ER 600 MG ORAL TABLET EXTENDED RELEASE 12 HOUR GUAIFENESIN Inactive AZITHROMYCIN 250 MG ORAL TABLET 2 po qd x 1, then 1 po qd x 4 AZITHROMYCIN 250 MG ORAL TABLET 760423 AZITHROMYCIN Inactive PROMETHAZINE-CODEINE 6.25-10 MG/5ML ORAL SYRUP 5ml po q6hr PRN Cough PROMETHAZINE-CODEINE 6.25-10 MG/5ML ORAL SYRUP 747581 PROMETHAZINE-CODEINE Inactive TRIAMCINOLONE ACETONIDE 0.1 % EXTERNAL OINTMENT Apply to affected areas TID for up to 2 weeks TRIAMCINOLONE ACETONIDE 0.1 % EXTERNAL OINTMENT 4007639 TRIAMCINOLONE ACETONIDE Inactive PREDNISONE 20 MG ORAL TABLET 2 tabs daily for 3 days, 1 tab daily for 3 days, 1/2 tab daily for 2 days PREDNISONE 20 MG ORAL TABLET 905977 PREDNISONE Inactive PREDNISONE 20 MG ORAL TABLET 2 tabs daily for 3 days, 1 tab daily for 3 days, 1/2 tab daily for 2 days PREDNISONE 20 MG ORAL TABLET 354581 PREDNISONE Inactive BACTRIM DS 800-160 MG ORAL TABLET 1 po BID x 7 days BACTRIM DS 800-160 MG ORAL TABLET 004713 SULFAMETHOXAZOLE-TRIMETHOPRIM Inactive ZITHROMAX 250 MG ORAL TABLET 2 po today, then 1 po q days 2-5 ZITHROMAX 250 MG ORAL TABLET 548782 AZITHROMYCIN Inactive PREDNISONE 20 MG ORAL TABLET 2 po qd x 5 days PREDNISONE 20 MG ORAL TABLET 032510 PREDNISONE Inactive Advance Directives Directive Description Start Date DISCUSSED WITH PATIENT -- NO DECISION MADE Immunizations Vaccine Administration Date Value Standard Description Seasonal influenza vaccine, injectable, containing preservative, for > 3 years old (Afluria, FluLaval, Fluzone, Fluvirin, Fluarix, Agriflu(>=18 yo)) Fluzone (>3 yrs.) [[id number]] Influenza, seasonal, injectable influenza immunization (Flu Vax) has been administered 02/22/2012 influenza virus vaccine, unspecified formulation Seasonal influenza vaccine, injectable, containing preservative, for > 3 years old (Afluria, FluLaval, Fluzone, Fluvirin, Fluarix, Agriflu(>=18 yo)) Fluzone (>3 yrs.) [[id number]] Influenza, seasonal, injectable Vital Signs Date Name [...] ... - Chemistry sodium, serum 141 mmol/L 571-840 9700/01/16 carbon dioxide, venous blood 28.3 mmol/L 21.0-32.0 [...] 6.7 % 4.3-6.0 cholesterol, serum 106 mg/dL 236-978 1855/01/16 triglyceride, serum, fasting 173 mg/dL 30-200 HDL [...] Magnesium - Chemistry sodium, serum 142 mmol/L 604-928 2060/07/16 carbon dioxide, venous blood 29.4 mmol/L 21.0-32.0 [...] Panel - Chemistry cholesterol, serum 170 mg/dL [phone]/07/16 triglyceride, serum, fasting 266 mg/dL 30-200 HDL cholesterol, serum 42 mg/dL 32-60 LDL cholesterol, serum 75 mg/dL 0-130 Encounters Code Encounter Date Provider Facility CPT-77687 Level 4 Est. Patient 14:46:36 CDT Tu Landeros MD [facility] CPT-28271 Level 3 Est. Patient 10:28:05 CDT Tu Landeros MD [facility] CPT-21993 Level 3 Est. Patient 09:11:32 CDT Tu Landeros MD [facility] CPT-14731 Level 3 Est. Patient 10:13:19 PANTS CUTTER Lesli Kellogg APRN [facility] CPT-15715 Level 4 Est. Patient 13:42:02 PANTS CUTTER Tu Landeros MD [facility] CPT-27868 Level 3 Est. Patient 14:20:36 CDT Tu Landeros MD [facility] CPT-86204 Level 4 Est. Patient 14:28:34 CDT Tu Landeros MD [facility] CPT-04490 Level 3 Est. Patient 13:33:09 CDT Tu Landeros MD [facility] CPT-44263 Level 4 Est. Patient 14:29:21 CDT Tu Landeros MD [facility] CPT-68773 Level 4 Est. Patient 09:08:17 PANTS CUTTER Tu Landeros MD [facility] CPT-98499 Level 4 Est. Patient 14:40:19 CDT Tu Landeros MD [facility] CPT-39807 Level 4 Est. Patient 14:06:04 PANTS CUTTER Tu Landeros MD [facility] CPT-41803 Level 3 Est. Patient 14:05:18 PANTS CUTTER Tu Landeros MD [facility] CPT-90560 Level 3 Est. Patient 10:06:54 PANTS CUTTER Miranda Farah APRN [facility] CPT-56945 Level 4 Est. Patient 13:50:18 PANTS CUTTER Tu Landeros MD [facility] CPT-32701 Level 3 Est. Patient 10:30:04 CDT Tu Landeros MD [facility] CPT-01899 Level 4 Est. Patient 11:03:38 CDT Tu Landeros MD [facility] CPT-94843 Level 3 Est. Patient 10:20:44 CDT Fab Morales DO [facility] CPT-97049 Level 4 Est. Patient 14:38:57 CDT Tu Landeros MD [facility] CPT-36133 Level 4 Est. Patient 14:27:39 PANTS CUTTER Tu Landeros MD [facility] CPT-21681 Level 4 Est. Patient 09:45:25 CDT Tu Landeros MD [facility] CPT-72182 Level 4 Est. Patient 09:05:20 PANTS CUTTER Tu Landeros MD [facility] CPT-64573 Level 4 Est. Patient 14:09:06 CDT Tu Landeros MD [facility] CPT-70045 Level 3 Est. Patient 13:36:54 CDT Tu Landeros MD [facility] CPT-50820 Level 3 Est. Patient 08:59:14 CDT Tu Landeros MD [facility] CPT-48241 Level 3 Est. Patient 13:48:35 CDT Fab Morales DO [facility] CPT-02204 Level 4 Est. Patient 10:05:48 CDT Tu Landeros MD [facility] CPT-74503 Level 3 Est. Patient 13:38:42 CDT Marek BANKS [facility] CPT-86134 Level 5 Est. Patient 08:08:39 CDT Jerrica FRANCIS [facility] CPT-27245 Level 4 Est. Patient 14:23:38 CDT Tu Landeros MD [facility] CPT-91044 Level 3 Est. Patient 11:44:04 CDT Tu Landeros MD [facility] CPT-90960 Level 3 Est. Patient 11:03:20 PANTS CUTTER Tu Landeros MD [facility] CPT-03441 Level 3 Est. Patient 11:03:14 PANTS CUTTER Tu Landeros MD [facility] CPT-44722 Level 3 Est. Patient 12:42:49 CDT Tu Landeros MD [facility] CPT-80949 Level 3 Est. Patient 11:52:06 CDT Tu Landeros MD [facility] CPT-77278 Level 3 Est. Patient 13:58:11 CDT Tu Landeros MD [facility] CPT-60671 Level 3 Est. Patient 17:50:07 CDT Fab Morales DO [facility] CPT-50610 Level 3 Est. Patient 12:06:29 CDT lEvira Cervantes MD, PhD [facility] CPT-53088 Level 3 Est. Patient 15:50:32 CDT Tu Landeros MD [facility] CPT-09165 Level 4 Est. Patient 16:08:29 CDT Tu Landeros MD [facility] CPT-98709 Level 3 Est. Patient 16:04:19 CDT Tu Landeros MD [facility] CPT-19097 Level 3 Est. Patient 11:22:30 PANTS CUTTER Tu Landeros MD [facility] CPT-22033 Level 4 Est. Patient 16:24:02 PANTS CUTTER Tu Landeros MD [facility] CPT-83513 Level 3 Est. Patient 17:21:23 PANTS CUTTER Tu Landeros MD [facility] Procedures Code Procedure Name Date Entry Date Standard Description CPT-G0439 Subsequent Annual Wellness Exam 14:46:36 CDT CPT-85961 Shoulder, right, comp min 2V - XRAY USE ONLY 13:50:22 CDT CPT-G0009 Administration of Pneumococcal Vaccine 15:08:26 CDT CPT-82273 Prevnar 13 Intramuscular Suspension 15:08:26 CDT 10/08 CPT-G0439 Subsequent Annual Wellness Exam 14:29:22 CDT CPT-79722 Venipuncture Draw Fee 13:15:35 CDT CPT-29510 Magnesium - LAB USE ONLY 11:14:20 [employer] CPT-26797 Lipid - LAB USE ONLY 11:14:20 [employer] CPT-63719 HGBA1C - LAB USE ONLY 11:14:20 [employer] CPT-04859 CMP - LAB USE ONLY 11:14:19 [employer] CPT-95645 CBC - LAB USE ONLY 11:14:19 [employer] CPT-83171 Venipuncture Draw Fee 11:14:18 [employer] CPT-06633 First Vx - Ix admin for Medicare patients 16:46:52 CDT CPT-95679 Fluzone Preservative Free Intramuscular Suspension 16:46 :51 CDT CPT-99673 CBC - LAB USE ONLY 17:14:46 CDT CPT-24375 HGBA1C - LAB USE ONLY 17:14:46 CDT CPT-81382 Venipuncture Draw Fee 17:14:46 CDT CPT-G0438 Initial Annual Wellness Exam 14:13:04 CDT CPT-52316 Breathing Tx 10:06:54 [employer] CPT-37877 Postop F/U Visit 10:02:45 CDT CPT-LR Lesion Removal 09:02:56 CDT CPT-JTINJ Asp/Joint Injection 15:51:27 [employer] CPT-OV Office Visit 15:52:02 [employer] CPT-OV Office Visit 15:45:11 CDT CPT-000 Give Zostavax 14:09:06 CDT CPT-13105 Administration single or combination vaccine inc oral 15 :19:04 CDT CPT-28014 Zoster Vaccine (Zostavax) 15:19:04 CDT CPT-77409 Administration single or combination vaccine inc oral 20 :51:03 CDT CPT-67608 Influenza split virus > age 3 20:51:03 CDT CPT-47077 No Charge Offi Visit 14:52:03 CDT CPT-OV Office Visit 14:57:43 CDT CPT-OV Office Visit 15:22:32 CDT CPT-61083 Administration single or combination vaccine inc oral 11 :33:15 CDT CPT-48354 Influenza split virus > age 3 11:33:15 CDT
--- OUTSIDE RECORDS SUMMARY | 2018-04-25 12:16 | XMS REPORT | Clinical Summary ---
Author Author Admin, SACHI Organization [employer] Address Unknown Phone Unavailable Allergies, Adverse Reactions, [...] magnesium metabolism URI 465.9 Inactive Lesli Kellogg CLEARING HAND Acute upper respiratory infections of unspecified site [...] for up to 2 weeks TRIAMCINOLONE ACETONIDE 78128382147 Active Tu Landeros MD Active INDOMETHACIN 50 MG ORAL CAPSULE 1 po TID PRN Pain INDOMETHACIN 40075479050 Active Tu Landeros MD Active PROMETHAZINE-CODEINE 6.25-10 MG/5ML ORAL SYRUP 5ml po q6hr PRN Cough PROMETHAZINE-CODEINE 36506996109 No Longer Active Tu Landeros MD Active AZITHROMYCIN 250 MG ORAL TABLET 2 po qd x 1, then 1 po qd x 4 AZITHROMYCIN 75236329449 No Longer Active Tu Landeros MD Active GUAIFENESIN ER 600 MG ORAL TABLET EXTENDED RELEASE 12 HOUR 1 twice a day as needed for congestion GUAIFENESIN 18217875832 No Longer Active Tu Landeros MD Active PREDNISONE 20 MG ORAL TABLET 2 po qd x 5 days PREDNISONE 84068165496 No Longer Active Tu Landeros MD Active FLUTICASONE PROPIONATE 50 MCG/ACT NASAL SUSPENSION 2 sprays/nostril qd PRN Congestion/Allergies FLUTICASONE PROPIONATE 34662600782 Active Tu Landeros MD Active NASONEX 50 MCG/ACT NASAL SUSPENSION 2 actuations in each nostril q day 07/15 MOMETASONE FUROATE 88904442270 No Longer Active Tu Landeros MD Active MAGNESIUM OXIDE 400 MG ORAL TABLET 1 po BID MAGNESIUM OXIDE 15701572274 Active Tu Landeros MD Active SIMVASTATIN 20 MG ORAL TABLET 0.5 po qHS SIMVASTATIN 36709303769 Active Tu Landeros MD Active DICLOFENAC SODIUM 75 MG ORAL TABLET DELAYED RELEASE 1 po BID PRN Pain DICLOFENAC SODIUM 79979754996 No Longer Active Tu Landeros MD Active GABAPENTIN 100 MG ORAL CAPSULE 1 po TID GABAPENTIN 42068583034 Active Tu Landeros MD Active DICLOFENAC SODIUM 50 MG ORAL TABLET DELAYED RELEASE 1 po BID PRN Pain DICLOFENAC SODIUM 00230849659 No Longer Active Tu Landeros MD Active CYCLOBENZAPRINE HCL 10 MG ORAL TABLET 1 po TID PRN Muscle Spasm CYCLOBENZAPRINE HCL 75762435487 No Longer Active Tu Landeros MD Active INVOKANA 100 MG ORAL TABLET 1 po qd CANAGLIFLOZIN 73903535935 Active José Luis Becerra MD Active GLIPIZIDE 5 MG ORAL TABLET 1 po qd GLIPIZIDE 67545073006 No Longer Active Tu Landeros MD Active VENLAFAXINE HCL 75 MG ORAL TABLET 1 po BID VENLAFAXINE HCL 09804495656 Active Tu Landeros MD Active GLIMEPIRIDE 1 MG ORAL TABLET 1 po qd GLIMEPIRIDE 18615020195 No Longer Active Tu Landeros MD Active TRUE METRIX BLOOD GLUCOSE TEST IN VITRO STRIP Test blood sugar BID Dx: E11.9 GLUCOSE BLOOD 76157765891 Active Tu Landeros MD Active TRUE METRIX AIR GLUCOSE METER w/Device KIT Test blood glucose BID Dx: E11.9 BLOOD GLUCOSE MONITORING SUPPL 63638132785 Active Tu Landeros MD Active TRUETEST TEST IN VITRO STRIP test blood sugar twice daily. DX 250.0 GLUCOSE BLOOD 64929330715 No Longer Active Mirna Stanley LPN Active TRUEDRAW LANCING DEVICE test blood sugar twice daily dx: 250.00 LANCET DEVICES 17638111245 No Longer Active Mirna Stanley LPN Active ENALAPRIL MALEATE 20 MG ORAL TABLET 2 po qd ENALAPRIL MALEATE 02296521225 Active Tu Landeros MD Active SUPER B COMPLEX/VITAMIN C ORAL TABLET 1 qd B COMPLEX- C 38640620511 No Longer Active Tu Landeros MD Active ASPIRIN EC 81 MG ORAL TABLET DELAYED RELEASE 1 po qd ASPIRIN 22247426093 Active Tu Landeros MD Active GLUCOSAMINE 500 MG TABS 2 po qd GLUCOSAMINE Active Tu Landeros MD Active FISH OIL 1000 MG ORAL CAPSULE 1 po qd OMEGA-3 FATTY ACIDS 21235259364 Active Tu Landeros MD Active METFORMIN HCL 1000 MG ORAL TABLET 1 po BID METFORMIN HCL 56076349791 Active Tu Landeros MD Active KLOR-CON 10 10 MEQ ORAL TABLET EXTENDED RELEASE 2 po qd POTASSIUM CHLORIDE 41318255823 Active Tu Landeros MD Active FUROSEMIDE 40 MG ORAL TABLET 1 po qd FUROSEMIDE 88347685334 Active Tu Landeros MD Active REQUIP 2 MG ORAL TABLET 1 po qHS PRN Restless legs ROPINIROLE HCL 09304226327 Active Tu Landeros MD Active REQUIP 2 MG ORAL TABLET Take one tablet at bedtime prn ROPINIROLE HCL 19736179862 No Longer Active Tu Landeros MD Active VENTOLIN HFA 108 (90 Base) MCG/ACT INHALATION AEROSOL SOLUTION 1-2 puffs every 4 hours if needed for cough/congestion ALBUTEROL SULFATE 41997215237 No Longer Active Ambika Aden APRN Active ZITHROMAX 250 MG ORAL TABLET 2 po today, then 1 po q days 2-5 AZITHROMYCIN 81243169599 No Longer Active Miranda Farah APRN Active FLONASE 50 MCG/ACT NASAL SUSPENSION 1 spray each nostril twice daily until bottle empty FLUTICASONE PROPIONATE 62694230501 No Longer Active Tu Landeros MD Active COLACE 100 MG ORAL CAPSULE 1 po BID PRN Constipation DOCUSATE SODIUM 97329164586 Active Tu Landeros MD Active TRUERESULT BLOOD GLUCOSE w/Device KIT test blood sugar twice daily dx 250.00 BLOOD GLUCOSE MONITORING SUPPL 51895064581 No Longer Active Tu Landeros MD Active TRUEDRAW LANCING DEVICE Test twice a day dx 250.0 LANCET DEVICES 38813304804 No Longer Active Tu Landeros MD Active PREDNISONE 20 MG ORAL TABLET 2 tablets once daily for 2 days, then 1 tablet once daily for 2 days PREDNISONE 52518340537 No Longer Active Tu Landeros MD Active DICLOFENAC SODIUM 50 MG ORAL TABLET DELAYED RELEASE 1 tablet by mouth three times a day as needed DICLOFENAC SODIUM 34553723576 No Longer Active Fab Morales DO Active EMBRACE BLOOD GLUCOSE TEST IN VITRO STRIP test blood sugar twice daily DX 250.0 GLUCOSE BLOOD 35352564081 No Longer Active Tu Landeros MD Active TRUETEST TEST IN VITRO STRIP test blood sugar three times daily dx: 250.00 GLUCOSE BLOOD 31800742528 No Longer Active Suze VOGLE Active TRUERESULT BLOOD GLUCOSE w/Device KIT use to test blood sugar tid dx: 250.00 BLOOD GLUCOSE MONITORING SUPPL 78649334353 No Longer Active Suzebianca VOGEL Active ALIGN 4 MG ORAL CAPSULE 1 tid PROBIOTIC PRODUCT 50837883077 No Longer Active Shaun Sy MD Active CIPRO 500 MG ORAL TABLET 1 bid x 14 days start 09-28-13 CIPROFLOXACIN HCL 09597995265 No Longer Active Shaun Sy MD Active TRAMADOL HCL 50 MG ORAL TABLET 1-2 tablets every 6 hours as needed for pain TRAMADOL HCL 87334359903 Active Tu Landeros MD Active HYDROCODONE-ACETAMINOPHEN 5-325 MG ORAL TABLET 1 tab by mouth every 6 hours as needed for pain HYDROCODONE-ACETAMINOPHEN 28462998902 No Longer Active Tu Landeros MD Active OMEPRAZOLE 20 MG ORAL CAPSULE DELAYED RELEASE 1 po q a.m. OMEPRAZOLE 72949186409 Active Tu Landeros MD Active GABAPENTIN 100 MG ORAL CAPSULE 1 po bid GABAPENTIN 32755695022 No Longer Active Tu Landeros MD Active B-12 100 MCG ORAL TABLET Take one by mouth daily CYANOCOBALAMIN 19132204911 No Longer Active Tu Landeros MD Active BACTRIM DS 800-160 MG ORAL TABLET 1 bid x 14 day start 09-28-13 SULFAMETHOXAZOLE-TRIMETHOPRIM 66368832295 No Longer Active Tu Landeros MD Active CARVEDILOL 12.5 MG ORAL TABLET 1 po BID CARVEDILOL 05820938770 Active Tu Landeros MD Active TRILIPIX 135 MG ORAL CAPSULE DELAYED RELEASE 1 q hs CHOLINE FENOFIBRATE 06216473671 Active Tu Landeros MD Active FENOFIBRATE 145 MG ORAL TABLET 1 po qd FENOFIBRATE 52717966430 No Longer Active JASPREET Perez Active OMEPRAZOLE 20 MG ORAL TABLET DELAYED RELEASE 1 PO 30 MIN BEFORE 1ST MEAL 2010 OMEPRAZOLE 13572759291 No Longer Active JASPREET Perez Active SIMVASTATIN 40 MG ORAL TABLET Take one by mouth daily SIMVASTATIN 56261394807 No Longer Active [place], RMA Active VENLAFAXINE HCL 75 MG ORAL TABLET 1 po BID VENLAFAXINE HCL 57343756597 No Longer Active JASPREET Perez Active CIPRO 500 MG ORAL TABLET 1 tablet by mouth twice daily CIPROFLOXACIN HCL 28076988027 No Longer Active Tu Landeros MD Active VENLAFAXINE HCL 37.5 MG ORAL TABLET 1 po BID VENLAFAXINE HCL 81271379209 No Longer Active Suze Nicole NURYSA Active LAMISIL 250 MG ORAL TABLET 1 po qd TERBINAFINE HCL 72322923408 No Longer Active Tu Landeros MD Active LORTAB 5-500 MG ORAL TABLET 1/2 to 1 tablet by mouth every 4 hours as needed for pain HYDROCODONE-ACETAMINOPHEN 66545706554 No Longer Active Tu Landeros MD Active HYDROCODONE-ACETAMINOPHEN 5-500 MG ORAL TABLET take one po Q 4-6 hours prn HYDROCODONE-ACETAMINOPHEN 05657362810 No Longer Active Tu Landeros MD Active BACTRIM DS 800-160 MG ORAL TABLET 1 po BID x 7 days SULFAMETHOXAZOLE-TRIMETHOPRIM 78597201584 No Longer Active Tu Landeros MD Active VENLAFAXINE HCL 75 MG ORAL TABLET 1 po BID VENLAFAXINE HCL 61065476124 No Longer Active Elvira Cervantes MD PhD Active TRAMADOL HCL 50 MG ORAL TABLET 1 tablets every 6 hours as needed for pain TRAMADOL HCL 20234624876 No Longer Active Tu Landeros MD Active ACCU-CHEK FASTCLIX LANCETS Use to check bloodsugar three times daily as needed LANCETS 16646706992 No Longer Active Tu Landeros MD Active ACCU-CHEK KEYONA PLUS IN VITRO STRIP Use for testing bloodsugars three times daily as needed GLUCOSE BLOOD 23146219820 No Longer Active Tu Landeros MD Active ACCU-CHEK KEYONA PLUS w/Device KIT Use for testing bloodsugars three times daily as needed BLOOD GLUCOSE MONITORING SUPPL 07721196253 No Longer Active Tu Landeros MD Active SPIRONOLACTONE 25 MG ORAL TABLET 0.5 tablet by mouth daily 09/09 SPIRONOLACTONE 81176371529 No Longer Active Tu Landeros MD Active ALPRAZOLAM 0.5 MG ORAL TABLET 1 tab every 6hrs as needed ALPRAZOLAM 44040881331 No Longer Active Tu Landeros MD Active AUGMENTIN 875-125 MG ORAL TABLET 1 tab by mouth twice daily with food AMOXICILLIN-POT CLAVULANATE 33998793443 No Longer Active Tu Landeros MD Active PREDNISONE 20 MG ORAL TABLET 2 tabs daily for 3 days, 1 tab daily for 3 days, 1/2 tab daily for 2 days PREDNISONE 30656866347 No Longer Active Tu Landeros MD Active XANAX 0.5 MG ORAL TABLET 1 tablet every 6 hrs prn ALPRAZOLAM 89813913874 No Longer Active Tu Landeros MD Active PREDNISONE 20 MG ORAL TABLET 2 tabs daily for 3 days, 1 tab daily for 3 days, 1/2 tab daily for 2 days PREDNISONE 00797164254 No Longer Active Tu Landeros MD Active TRIAMCINOLONE ACETONIDE 0.1 % EXTERNAL OINTMENT Apply to affected areas TID for up to 2 weeks TRIAMCINOLONE ACETONIDE 11695842938 No Longer Active Tu Landeros MD Active LORTAB 5-500 MG ORAL TABLET 1/2 to 1 tablet by mouth every 4 hours as needed for pain HYDROCODONE-ACETAMINOPHEN 72279019351 No Longer Active Tu Landeros MD Active MULTIVITAMINS TABS Take one by mouth daily MULTIPLE VITAMIN 12672868347 No Longer Active Tu Landeros MD Active MELATONIN 5 MG ORAL TABLET Take one by mouth daily MELATONIN 64864934252 No Longer Active Tu Landeros MD Active SOMA 350 MG ORAL TABLET 1 po q 6 hours prn spasm CARISOPRODOL 03665059691 No Longer Active Tu Landeros MD Active MECLIZINE HCL 25 MG ORAL TABLET CHEWABLE 1 four times a day as needed for dizziness MECLIZINE HCL 47293973141 No Longer Active Fab Morales DO Active ANGEL BREEZE 2 TEST IN VITRO DISK test tid prn GLUCOSE BLOOD 72216768565 No Longer Active Negra Scott RN Active REGLAN 10 MG ORAL TABLET 1 po TID PRN Nausea METOCLOPRAMIDE HCL 63552286958 No Longer Active Tu Landeros MD Active METFORMIN HCL 500 MG ORAL TABLET 1 PO BID METFORMIN HCL 75663945625 No Longer Active Tu Landeros MD Active AMBIEN 10 MG ORAL TABLET 1 tab by mouth at bedtime as needed for sleep 06/10 ZOLPIDEM TARTRATE 94069249696 No Longer Active Tu Landeros MD Active FLUOXETINE HCL 40 MG ORAL CAPSULE 1 po q day FLUOXETINE HCL 21816838475 No Longer Active Mayra Terry Active TRILIPIX 135 MG ORAL CAPSULE DELAYED RELEASE 1 po qd CHOLINE FENOFIBRATE 41217698532 No Longer Active Tu Landeros MD Active AMBIEN 10 MG ORAL TABLET 1 tab by mouth at bedtime as needed for sleep 06/10 AMBIEN 10 MG ORAL TABLET 030985 ZOLPIDEM TARTRATE Inactive METFORMIN HCL 500 MG ORAL TABLET 1 PO BID METFORMIN HCL 500 MG ORAL TABLET 579368 METFORMIN HCL Inactive REGLAN 10 MG ORAL TABLET 1 po TID PRN Nausea REGLAN 10 MG ORAL TABLET 562142 METOCLOPRAMIDE HCL Inactive MECLIZINE HCL 25 MG ORAL TABLET CHEWABLE 1 four times a day as needed for dizziness MECLIZINE HCL 25 MG ORAL TABLET CHEWABLE 974018 MECLIZINE HCL Inactive SOMA 350 MG ORAL TABLET 1 po q 6 hours prn spasm SOMA 350 MG ORAL TABLET 290649 CARISOPRODOL Inactive MELATONIN 5 MG ORAL TABLET Take one by mouth daily MELATONIN 5 MG ORAL TABLET 192731 MELATONIN Inactive MULTIVITAMINS TABS Take one by mouth daily MULTIVITAMINS TABS MULTIPLE VITAMIN Inactive LORTAB 5-500 MG ORAL TABLET 1/2 to 1 tablet by mouth every 4 hours as needed for pain LORTAB 5-500 MG ORAL TABLET HYDROCODONE- ACETAMINOPHEN Inactive XANAX 0.5 MG ORAL TABLET 1 tablet every 6 hrs prn XANAX 0.5 MG ORAL TABLET 367695 ALPRAZOLAM Inactive AUGMENTIN 875-125 MG ORAL TABLET 1 tab by mouth twice daily with food AUGMENTIN 875-125 MG ORAL TABLET 311824 AMOXICILLIN-POT CLAVULANATE Inactive ALPRAZOLAM 0.5 MG ORAL TABLET 1 tab every 6hrs as needed ALPRAZOLAM 0.5 MG ORAL TABLET 256599 ALPRAZOLAM Inactive SPIRONOLACTONE 25 MG ORAL TABLET 0.5 tablet by mouth daily 09/09 SPIRONOLACTONE 25 MG ORAL TABLET 265850 SPIRONOLACTONE Inactive ACCU-CHEK KEYONA PLUS w/Device KIT [...] times daily as needed ACCU-CHEK FASTCLIX LANCETS 16250471794 LANCETS Inactive TRAMADOL HCL 50 MG ORAL TABLET 1 tablets every 6 hours as needed for pain TRAMADOL HCL 50 MG ORAL TABLET 913754 TRAMADOL HCL Inactive VENLAFAXINE HCL 75 MG ORAL TABLET 1 po BID VENLAFAXINE HCL 75 MG ORAL TABLET 433515 VENLAFAXINE HCL Inactive HYDROCODONE-ACETAMINOPHEN 5-500 MG ORAL TABLET take one po Q 4-6 hours prn HYDROCODONE-ACETAMINOPHEN 5-500 MG ORAL TABLET HYDROCODONE-ACETAMINOPHEN Inactive LORTAB 5-500 MG ORAL TABLET 1/2 to 1 tablet by mouth every 4 hours as needed for pain LORTAB 5-500 MG ORAL TABLET HYDROCODONE- ACETAMINOPHEN Inactive LAMISIL 250 MG ORAL TABLET 1 po qd LAMISIL 250 MG ORAL TABLET 696025 TERBINAFINE HCL Inactive VENLAFAXINE HCL 37.5 MG ORAL TABLET 1 po BID VENLAFAXINE HCL 37.5 MG ORAL TABLET 858933 VENLAFAXINE HCL Inactive CIPRO 500 MG ORAL TABLET 1 tablet by mouth twice daily CIPRO 500 MG ORAL TABLET 517255 CIPROFLOXACIN HCL Inactive VENLAFAXINE HCL 75 MG ORAL TABLET 1 po BID VENLAFAXINE HCL 75 MG ORAL TABLET 216363 VENLAFAXINE HCL Inactive SIMVASTATIN 40 MG ORAL TABLET Take one by mouth daily SIMVASTATIN 40 MG ORAL TABLET 253649 SIMVASTATIN Inactive OMEPRAZOLE 20 MG ORAL TABLET DELAYED RELEASE 1 PO 30 MIN BEFORE 1ST MEAL 2010 OMEPRAZOLE 20 MG ORAL TABLET DELAYED RELEASE 895942 OMEPRAZOLE Inactive FENOFIBRATE 145 MG ORAL TABLET 1 po qd FENOFIBRATE 145 MG ORAL TABLET 568238 FENOFIBRATE Inactive BACTRIM DS 800-160 MG ORAL TABLET 1 bid x 14 day start 09-28-13 BACTRIM DS 800-160 MG ORAL TABLET 831800 SULFAMETHOXAZOLE- TRIMETHOPRIM Inactive B-12 100 MCG ORAL TABLET Take one by mouth daily B-12 100 MCG ORAL TABLET CYANOCOBALAMIN Inactive GABAPENTIN 100 MG ORAL CAPSULE 1 po bid GABAPENTIN 100 MG ORAL CAPSULE 533728 GABAPENTIN Inactive HYDROCODONE-ACETAMINOPHEN 5-325 MG ORAL TABLET 1 tab by mouth every 6 hours as needed for pain HYDROCODONE-ACETAMINOPHEN 5-325 MG ORAL TABLET 735847 HYDROCODONE-ACETAMINOPHEN Inactive CIPRO 500 MG ORAL TABLET 1 bid x 14 days start 09-28-13 CIPRO 500 MG ORAL TABLET 970915 CIPROFLOXACIN HCL Inactive ALIGN 4 MG ORAL [...] SODIUM 50 MG ORAL TABLET DELAYED RELEASE 541115 DICLOFENAC SODIUM Inactive PREDNISONE 20 MG ORAL TABLET 2 tablets once daily for 2 days, then 1 tablet once daily for 2 days PREDNISONE 20 MG ORAL TABLET 566320 PREDNISONE Inactive TRUEDRAW LANCING DEVICE Test twice a day dx 250.0 TRUEDRAW LANCING DEVICE LANCET DEVICES Inactive TRUERESULT BLOOD GLUCOSE w/Device KIT test blood sugar twice daily dx 250.00 TRUERESULT BLOOD GLUCOSE w/Device KIT BLOOD GLUCOSE MONITORING SUPPL Inactive FLONASE 50 MCG/ACT NASAL SUSPENSION 1 spray each nostril twice daily until bottle empty FLONASE 50 MCG/ACT NASAL SUSPENSION 4471742 FLUTICASONE PROPIONATE Inactive VENTOLIN HFA 108 (90 Base) MCG/ACT INHALATION AEROSOL SOLUTION 1-2 puffs every 4 hours if needed for cough/congestion VENTOLIN HFA 108 (90 Base) MCG/ACT INHALATION AEROSOL SOLUTION ALBUTEROL SULFATE Inactive REQUIP 2 MG ORAL TABLET Take one tablet at bedtime prn REQUIP 2 MG ORAL TABLET 848944 ROPINIROLE HCL Inactive SUPER B COMPLEX/VITAMIN C ORAL TABLET 1 qd SUPER B COMPLEX/VITAMIN C ORAL TABLET 21067730980 B COMPLEX-C Inactive TRUEDRAW LANCING DEVICE test blood sugar twice daily dx: 250.00 TRUEDRAW LANCING DEVICE LANCET DEVICES Inactive TRUETEST TEST IN VITRO STRIP test blood sugar twice daily. DX 250.0 TRUETEST TEST IN VITRO STRIP GLUCOSE BLOOD Inactive CYCLOBENZAPRINE HCL 10 MG ORAL TABLET 1 po TID PRN Muscle Spasm CYCLOBENZAPRINE HCL 10 MG ORAL TABLET 351773 CYCLOBENZAPRINE HCL Inactive DICLOFENAC SODIUM 50 MG ORAL TABLET DELAYED RELEASE 1 po BID PRN Pain DICLOFENAC SODIUM 50 MG ORAL TABLET DELAYED RELEASE 682792 DICLOFENAC SODIUM Inactive DICLOFENAC SODIUM 75 MG ORAL TABLET DELAYED RELEASE 1 po BID PRN Pain DICLOFENAC SODIUM 75 MG ORAL TABLET DELAYED RELEASE 105055 DICLOFENAC SODIUM Inactive NASONEX 50 MCG/ACT NASAL SUSPENSION 2 actuations in each nostril q day 07/15 NASONEX 50 MCG/ACT NASAL SUSPENSION 2945626 MOMETASONE FUROATE Inactive GUAIFENESIN ER 600 MG ORAL TABLET EXTENDED RELEASE 12 HOUR 1 twice a day as needed for congestion GUAIFENESIN ER 600 MG ORAL TABLET EXTENDED RELEASE 12 HOUR GUAIFENESIN Inactive AZITHROMYCIN 250 MG ORAL TABLET 2 po qd x 1, then 1 po qd x 4 AZITHROMYCIN 250 MG ORAL TABLET 253177 AZITHROMYCIN Inactive PROMETHAZINE-CODEINE 6.25-10 MG/5ML ORAL SYRUP 5ml po q6hr PRN Cough PROMETHAZINE-CODEINE 6.25-10 MG/5ML ORAL SYRUP 172789 PROMETHAZINE-CODEINE Inactive TRIAMCINOLONE ACETONIDE 0.1 % EXTERNAL OINTMENT Apply to affected areas TID for up to 2 weeks TRIAMCINOLONE ACETONIDE 0.1 % EXTERNAL OINTMENT 6531680 TRIAMCINOLONE ACETONIDE Inactive PREDNISONE 20 MG ORAL TABLET 2 tabs daily for 3 days, 1 tab daily for 3 days, 1/2 tab daily for 2 days PREDNISONE 20 MG ORAL TABLET 253032 PREDNISONE Inactive PREDNISONE 20 MG ORAL TABLET 2 tabs daily for 3 days, 1 tab daily for 3 days, 1/2 tab daily for 2 days PREDNISONE 20 MG ORAL TABLET 712811 PREDNISONE Inactive BACTRIM DS 800-160 MG ORAL TABLET 1 po BID x 7 days BACTRIM DS 800-160 MG ORAL TABLET 765463 SULFAMETHOXAZOLE-TRIMETHOPRIM Inactive ZITHROMAX 250 MG ORAL TABLET 2 po today, then 1 po q days 2-5 ZITHROMAX 250 MG ORAL TABLET 759035 AZITHROMYCIN Inactive PREDNISONE 20 MG ORAL TABLET 2 po qd x 5 days PREDNISONE 20 MG ORAL TABLET 968058 PREDNISONE Inactive Advance Directives Directive Description Start Date DISCUSSED WITH PATIENT -- NO DECISION MADE Immunizations Vaccine Administration Date Value Standard Description Seasonal influenza vaccine, injectable, containing preservative, for > 3 years old (Afluria, FluLaval, Fluzone, Fluvirin, Fluarix, Agriflu(>=18 yo)) Fluzone (>3 yrs.) [DQC168] Influenza, seasonal, injectable influenza immunization (Flu Vax) has been administered 02/22/2012 influenza virus vaccine, unspecified formulation Seasonal influenza vaccine, injectable, containing preservative, for > 3 years old (Afluria, FluLaval, Fluzone, Fluvirin, Fluarix, Agriflu(>=18 yo)) Fluzone (>3 yrs.) [KDV211] Influenza, seasonal, injectable Vital Signs Date Name [...] ... - Chemistry sodium, serum 141 mmol/L 472-414 1997/01/16 carbon dioxide, venous blood 28.3 mmol/L 21.0-32.0 [...] 6.7 % 4.3-6.0 cholesterol, serum 106 mg/dL 735-215 2111/01/16 triglyceride, serum, fasting 173 mg/dL 30-200 HDL [...] Magnesium - Chemistry sodium, serum 142 mmol/L 598-213 0606/07/16 carbon dioxide, venous blood 29.4 mmol/L 21.0-32.0 [...] Panel - Chemistry cholesterol, serum 170 mg/dL 320-934 2969/07/16 triglyceride, serum, fasting 266 mg/dL 30-200 HDL cholesterol, serum 42 mg/dL 32-60 LDL cholesterol, serum 75 mg/dL 0-130 Encounters Code Encounter Date Provider Facility CPT-96842 Level 4 Est. Patient 14:46:36 CDT Tu Landeros MD [facility] CPT-60121 Level 3 Est. Patient 10:28:05 CDT Tu Landerso MD [facility] CPT-22583 Level 3 Est. Patient 09:11:32 CDT Tu Landeros MD [facility] CPT-77870 Level 3 Est. Patient 10:13:19 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 Lesli Kellogg APRN [facility] CPT-23985 Level 4 Est. Patient 13:42:02 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 Tu Landeros MD [facility] CPT-62405 Level 3 Est. Patient 14:20:36 CDT Tu Landeros MD [facility] CPT-47644 Level 4 Est. Patient 14:28:34 CDT Tu Landeros MD [facility] CPT-71056 Level 3 Est. Patient 13:33:09 CDT Tu Landeros MD [facility] CPT-30603 Level 4 Est. Patient 14:29:21 CDT Tu Landeros MD [facility] CPT-07606 Level 4 Est. Patient 09:08:17 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 Tu Landeros MD [facility] CPT-30397 Level 4 Est. Patient 14:40:19 CDT Tu Landeros MD [facility] CPT-86586 Level 4 Est. Patient 14:06:04 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 Tu Landeros MD [facility] CPT-43525 Level 3 Est. Patient 14:05:18 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 Tu Landeros MD [facility] CPT-69391 Level 3 Est. Patient 10:06:54 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 Miranda Farah APRN [facility] CPT-72170 Level 4 Est. Patient 13:50:18 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 Tu Landeros MD [facility] CPT-46325 Level 3 Est. Patient 10:30:04 CDT Tu Landeros MD [facility] CPT-72150 Level 4 Est. Patient 11:03:38 CDT Tu Landeros MD [facility] CPT-25721 Level 3 Est. Patient 10:20:44 CDT Fab Morales DO [facility] CPT-27761 Level 4 Est. Patient 14:38:57 CDT Tu Landeros MD [facility] CPT-68913 Level 4 Est. Patient 14:27:39 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 Tu Landeros MD [facility] CPT-80725 Level 4 Est. Patient 09:45:25 CDT Tu Landeros MD [facility] CPT-88637 Level 4 Est. Patient 09:05:20 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 Tu Landeros MD [facility] CPT-08922 Level 4 Est. Patient 14:09:06 CDT Tu Landeros MD [facility] CPT-88921 Level 3 Est. Patient 13:36:54 CDT Tu Landeros MD [facility] CPT-28622 Level 3 Est. Patient 08:59:14 CDT Tu Landeros MD [facility] CPT-05608 Level 3 Est. Patient 13:48:35 CDT Fab Morales DO [facility] CPT-90662 Level 4 Est. Patient 10:05:48 CDT Tu Landeros MD [facility] CPT-27400 Level 3 Est. Patient 13:38:42 CDT Marek BANKS [facility] CPT-07762 Level 5 Est. Patient 08:08:39 CDT Jerrica FRANCIS [facility] CPT-77273 Level 4 Est. Patient 14:23:38 CDT Tu Landeros MD [facility] CPT-09242 Level 3 Est. Patient 11:44:04 CDT Tu Landeros MD [facility] CPT-08743 Level 3 Est. Patient 11:03:20 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 Tu Landeros MD [facility] CPT-59724 Level 3 Est. Patient 11:03:14 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 Tu Landeros MD [facility] CPT-32633 Level 3 Est. Patient 12:42:49 CDT Tu Landeros MD [facility] CPT-55616 Level 3 Est. Patient 11:52:06 CDT Tu Landeros MD [facility] CPT-45054 Level 3 Est. Patient 13:58:11 CDT Tu Landeros MD [facility] CPT-54331 Level 3 Est. Patient 17:50:07 CDT Fab Morales DO [facility] CPT-50691 Level 3 Est. Patient 12:06:29 CDT Elvira Cervantes MD, PhD [facility] CPT-38278 Level 3 Est. Patient 15:50:32 CDT Tu Landeros MD [facility] CPT-66103 Level 4 Est. Patient 16:08:29 CDT Tu Landeros MD [facility] CPT-42310 Level 3 Est. Patient 16:04:19 CDT Tu Landeros MD [facility] CPT-03440 Level 3 Est. Patient 11:22:30 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 Tu Landeros MD [facility] CPT-77138 Level 4 Est. Patient 16:24:02 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 Tu Landeros MD [facility] CPT-34374 Level 3 Est. Patient 17:21:23 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 Tu Landeros MD [facility] Procedures Code Procedure Name Date Entry Date Standard Description CPT-G0439 Subsequent Annual Wellness Exam 14:46:36 CDT CPT-22905 Shoulder, right, comp min 2V - XRAY USE ONLY 13:50:22 CDT CPT-G0009 Administration of Pneumococcal Vaccine 15:08:26 CDT CPT-27976 Prevnar 13 Intramuscular Suspension 15:08:26 CDT 10/08 CPT-G0439 Subsequent Annual Wellness Exam 14:29:22 CDT CPT-53184 Venipuncture Draw Fee 13:15:35 CDT CPT-29281 Magnesium - LAB USE ONLY 11:14:20 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 CPT-27853 Lipid - LAB USE ONLY 11:14:20 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 CPT-29267 HGBA1C - LAB USE ONLY 11:14:20 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 CPT-62210 CMP - LAB USE ONLY 11:14:19 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 CPT-64136 CBC - LAB USE ONLY 11:14:19 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 CPT-95808 Venipuncture Draw Fee 11:14:18 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 CPT-05903 First Vx - Ix admin for Medicare patients 16:46:52 CDT CPT-70961 Fluzone Preservative Free Intramuscular Suspension 16:46 :51 CDT CPT-96188 CBC - LAB USE ONLY 17:14:46 CDT CPT-70827 HGBA1C - LAB USE ONLY 17:14:46 CDT CPT-46489 Venipuncture Draw Fee 17:14:46 CDT CPT-G0438 Initial Annual Wellness Exam 14:13:04 CDT CPT-82025 Breathing Tx 10:06:54 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 CPT-39865 Postop F/U Visit 10:02:45 CDT CPT-LR Lesion Removal 09:02:56 CDT CPT-JTINJ Asp/Joint Injection 15:51:27 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 CPT-OV Office Visit 15:52:02 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
--- OUTSIDE RECORDS SUMMARY | 2018-04-25 12:17 | XMS REPORT | Clinical Summary ---
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 Acute upper respiratory infections of unspecified site Upper respiratory infection, viral 465.9 Resolved Tu Landeros MD Acute upper respiratory infections of unspecified site Body Mass Index 50.0-59.9 Adult Active Tu Landeros MD Body Mass Index 50.0-59.9, adult Wrist pain, left 719.43 Active Tu Landeros MD Pain in joint involving forearm POSTMENOPAUSAL BLEEDING ICD-627.1 Inactive Elvira Cervnates MD PhD HEALTH SCREENING ICD-V70.0 Inactive Elvira [...] for up to 2 weeks TRIAMCINOLONE ACETONIDE 19237172682 Active Tu Landeros MD Active INDOMETHACIN 50 MG ORAL CAPSULE 1 po TID PRN Pain INDOMETHACIN 10230846963 Active Tu Landeros MD Active PROMETHAZINE-CODEINE 6.25-10 MG/5ML ORAL SYRUP 5ml po q6hr PRN Cough PROMETHAZINE-CODEINE 48516145219 No Longer Active Tu Landeros MD Active AZITHROMYCIN 250 MG ORAL TABLET 2 po qd x 1, then 1 po qd x 4 AZITHROMYCIN 02238964849 No Longer Active Tu Landeros MD Active GUAIFENESIN ER 600 MG ORAL TABLET EXTENDED RELEASE 12 HOUR 1 twice a day as needed for congestion GUAIFENESIN 31696888977 No Longer Active Tu Landeros MD Active PREDNISONE 20 MG ORAL TABLET 2 po qd x 5 days PREDNISONE 44507992483 No Longer Active Tu Landeros MD Active FLUTICASONE PROPIONATE 50 MCG/ACT NASAL SUSPENSION 2 sprays/nostril qd PRN Congestion/Allergies FLUTICASONE PROPIONATE 53948629603 Active Tu Landeros MD Active NASONEX 50 MCG/ACT NASAL SUSPENSION 2 actuations in each nostril q day 07/15 MOMETASONE FUROATE 78060554834 No Longer Active Tu Landeros MD Active MAGNESIUM OXIDE 400 MG ORAL TABLET 1 po BID MAGNESIUM OXIDE 48334624372 Active uT Landeros MD Active SIMVASTATIN 20 MG ORAL TABLET 0.5 po qHS SIMVASTATIN 71034393640 Active Tu Landeros MD Active DICLOFENAC SODIUM 75 MG ORAL TABLET DELAYED RELEASE 1 po BID PRN Pain DICLOFENAC SODIUM 01346310086 No Longer Active Tu Landeros MD Active GABAPENTIN 100 MG ORAL CAPSULE 1 po TID GABAPENTIN 94866036612 Active Tu Landeros MD Active DICLOFENAC SODIUM 50 MG ORAL TABLET DELAYED RELEASE 1 po BID PRN Pain DICLOFENAC SODIUM 28707576383 No Longer Active Tu Landeros MD Active CYCLOBENZAPRINE HCL 10 MG ORAL TABLET 1 po TID PRN Muscle Spasm CYCLOBENZAPRINE HCL 29608026088 No Longer Active Tu Landeros MD Active INVOKANA 100 MG ORAL TABLET 1 po qd CANAGLIFLOZIN 90168787243 Active José Luis Becerra MD Active GLIPIZIDE 5 MG ORAL TABLET 1 po qd GLIPIZIDE 89710976934 No Longer Active Tu Landeros MD Active VENLAFAXINE HCL 75 MG ORAL TABLET 1 po BID VENLAFAXINE HCL 96567650612 Active Tu Landeros MD Active GLIMEPIRIDE 1 MG ORAL TABLET 1 po qd GLIMEPIRIDE 38295422318 No Longer Active Tu Landeros MD Active TRUE METRIX BLOOD GLUCOSE TEST IN VITRO STRIP Test blood sugar BID Dx: E11.9 GLUCOSE BLOOD 62020228252 Active Tu Landeros MD Active TRUE METRIX AIR GLUCOSE METER w/Device KIT Test blood glucose BID Dx: E11.9 BLOOD GLUCOSE MONITORING SUPPL 49053795113 Active Tu Landeros MD Active TRUETEST TEST IN VITRO STRIP test blood sugar twice daily. DX 250.0 GLUCOSE BLOOD 50149475524 No Longer Active Mirna Stanley LPN Active TRUEDRAW LANCING DEVICE test blood sugar twice daily dx: 250.00 LANCET DEVICES 53603780455 No Longer Active Mirna Stanley LPN Active ENALAPRIL MALEATE 20 MG ORAL TABLET 2 po qd ENALAPRIL MALEATE 99983955725 Active Tu Landeros MD Active SUPER B COMPLEX/VITAMIN C ORAL TABLET 1 qd B COMPLEX- C 15731034339 No Longer Active Tu Landeros MD Active ASPIRIN EC 81 MG ORAL TABLET DELAYED RELEASE 1 po qd ASPIRIN 60332149136 Active Tu Landeros MD Active GLUCOSAMINE 500 MG TABS 2 po qd GLUCOSAMINE Active Tu Landeros MD Active FISH OIL 1000 MG ORAL CAPSULE 1 po qd OMEGA-3 FATTY ACIDS 86878894783 Active Tu Landeros MD Active METFORMIN HCL 1000 MG ORAL TABLET 1 po BID METFORMIN HCL 30313734523 Active Tu Landeros MD Active KLOR-CON 10 10 MEQ ORAL TABLET EXTENDED RELEASE 2 po qd POTASSIUM CHLORIDE 75414309903 Active Tu Landeros MD Active FUROSEMIDE 40 MG ORAL TABLET 1 po qd FUROSEMIDE 67593651034 Active Tu Landeros MD Active REQUIP 2 MG ORAL TABLET 1 po qHS PRN Restless legs ROPINIROLE HCL 82265351823 Active Tu Landeros MD Active REQUIP 2 MG ORAL TABLET Take one tablet at bedtime prn ROPINIROLE HCL 96110812317 No Longer Active Tu Landeros MD Active VENTOLIN HFA 108 (90 Base) MCG/ACT INHALATION AEROSOL SOLUTION 1-2 puffs every 4 hours if needed for cough/congestion ALBUTEROL SULFATE 24900569840 No Longer Active Ambika Aden APRN Active ZITHROMAX 250 MG ORAL TABLET 2 po today, then 1 po q days 2-5 AZITHROMYCIN 26426194041 No Longer Active Miranda Farah APRN Active FLONASE 50 MCG/ACT NASAL SUSPENSION 1 spray each nostril twice daily until bottle empty FLUTICASONE PROPIONATE 62284510154 No Longer Active Tu Landeros MD Active COLACE 100 MG ORAL CAPSULE 1 po BID PRN Constipation DOCUSATE SODIUM 19644710692 Active Tu Landeros MD Active TRUERESULT BLOOD GLUCOSE w/Device KIT test blood sugar twice daily dx 250.00 BLOOD GLUCOSE MONITORING SUPPL 56185922021 No Longer Active Tu Landeros MD Active TRUEDRAW LANCING DEVICE Test twice a day dx 250.0 LANCET DEVICES 13739516188 No Longer Active Tu Landeros MD Active PREDNISONE 20 MG ORAL TABLET 2 tablets once daily for 2 days, then 1 tablet once daily for 2 days PREDNISONE 37945697397 No Longer Active Tu Landeros MD Active DICLOFENAC SODIUM 50 MG ORAL TABLET DELAYED RELEASE 1 tablet by mouth three times a day as needed DICLOFENAC SODIUM 88311327167 No Longer Active Fab Morales DO Active EMBRACE BLOOD GLUCOSE TEST IN VITRO STRIP test blood sugar twice daily DX 250.0 GLUCOSE BLOOD 25644920984 No Longer Active Tu Landeros MD Active TRUETEST TEST IN VITRO STRIP test blood sugar three times daily dx: 250.00 GLUCOSE BLOOD 35734634500 No Longer Active Suze VOGEL Active TRUERESULT BLOOD GLUCOSE w/Device KIT use to test blood sugar tid dx: 250.00 BLOOD GLUCOSE MONITORING SUPPL 98514922573 No Longer Active Suzebianca VOGEL Active ALIGN 4 MG ORAL CAPSULE 1 tid PROBIOTIC PRODUCT 38975124773 No Longer Active Shaun Sy MD Active CIPRO 500 MG ORAL TABLET 1 bid x 14 days start 09-28-13 CIPROFLOXACIN HCL 63038694327 No Longer Active Shaun Sy MD Active TRAMADOL HCL 50 MG ORAL TABLET 1-2 tablets every 6 hours as needed for pain TRAMADOL HCL 41145211551 Active Tu Landeros MD Active HYDROCODONE-ACETAMINOPHEN 5-325 MG ORAL TABLET 1 tab by mouth every 6 hours as needed for pain HYDROCODONE-ACETAMINOPHEN 53033845512 No Longer Active Tu Landeros MD Active OMEPRAZOLE 20 MG ORAL CAPSULE DELAYED RELEASE 1 po q a.m. OMEPRAZOLE 05340307567 Active Tu Landeros MD Active GABAPENTIN 100 MG ORAL CAPSULE 1 po bid GABAPENTIN 17372929369 No Longer Active Tu Landeros MD Active B-12 100 MCG ORAL TABLET Take one by mouth daily CYANOCOBALAMIN 95174076049 No Longer Active Tu Landeros MD Active BACTRIM DS 800-160 MG ORAL TABLET 1 bid x 14 day start 09-28-13 SULFAMETHOXAZOLE-TRIMETHOPRIM 05143810478 No Longer Active Tu Landeros MD Active CARVEDILOL 12.5 MG ORAL TABLET 1 po BID CARVEDILOL 46480247033 Active Tu Landeros MD Active TRILIPIX 135 MG ORAL CAPSULE DELAYED RELEASE 1 q hs CHOLINE FENOFIBRATE 48487379972 Active Tu Landeros MD Active FENOFIBRATE 145 MG ORAL TABLET 1 po qd FENOFIBRATE 22119531172 No Longer Active JASPREET Perez Active OMEPRAZOLE 20 MG ORAL TABLET DELAYED RELEASE 1 PO 30 MIN BEFORE 1ST MEAL 2010 OMEPRAZOLE 19386974720 No Longer Active JASPREET Perez Active SIMVASTATIN 40 MG ORAL TABLET Take one by mouth daily SIMVASTATIN 27233511427 No Longer Active Maxwell [place], RMA Active VENLAFAXINE HCL 75 MG ORAL TABLET 1 po BID VENLAFAXINE HCL 84984013937 No Longer Active JASPREET Perez Active CIPRO 500 MG ORAL TABLET 1 tablet by mouth twice daily CIPROFLOXACIN HCL 50705780324 No Longer Active Tu Landeros MD Active VENLAFAXINE HCL 37.5 MG ORAL TABLET 1 po BID VENLAFAXINE HCL 48344602526 No Longer Active Suze Nicole NURYSA Active LAMISIL 250 MG ORAL TABLET 1 po qd TERBINAFINE HCL 78031645447 No Longer Active Tu Landeros MD Active LORTAB 5-500 MG ORAL TABLET 1/2 to 1 tablet by mouth every 4 hours as needed for pain HYDROCODONE-ACETAMINOPHEN 46988077603 No Longer Active Tu Landeros MD Active HYDROCODONE-ACETAMINOPHEN 5-500 MG ORAL TABLET take one po Q 4-6 hours prn HYDROCODONE-ACETAMINOPHEN 45949122335 No Longer Active Tu Landeros MD Active BACTRIM DS 800-160 MG ORAL TABLET 1 po BID x 7 days SULFAMETHOXAZOLE-TRIMETHOPRIM 08269343443 No Longer Active Tu Landeros MD Active VENLAFAXINE HCL 75 MG ORAL TABLET 1 po BID VENLAFAXINE HCL 86084191458 No Longer Active Elvira Cervantes MD PhD Active TRAMADOL HCL 50 MG ORAL TABLET 1 tablets every 6 hours as needed for pain TRAMADOL HCL 00367380094 No Longer Active Tu Landeros MD Active ACCU-CHEK FASTCLIX LANCETS Use to check bloodsugar three times daily as needed LANCETS 96467430713 No Longer Active Tu Landeros MD Active ACCU-CHEK KEYONA PLUS IN VITRO STRIP Use for testing bloodsugars three times daily as needed GLUCOSE BLOOD 80936902519 No Longer Active Tu Landeros MD Active ACCU-CHEK KEYONA PLUS w/Device KIT Use for testing bloodsugars three times daily as needed BLOOD GLUCOSE MONITORING SUPPL 91580035099 No Longer Active Tu Landeros MD Active SPIRONOLACTONE 25 MG ORAL TABLET 0.5 tablet by mouth daily 09/09 SPIRONOLACTONE 72297129634 No Longer Active Tu Landeros MD Active ALPRAZOLAM 0.5 MG ORAL TABLET 1 tab every 6hrs as needed ALPRAZOLAM 84857096611 No Longer Active Tu Landeros MD Active AUGMENTIN 875-125 MG ORAL TABLET 1 tab by mouth twice daily with food AMOXICILLIN-POT CLAVULANATE 58069786857 No Longer Active Tu Landeros MD Active PREDNISONE 20 MG ORAL TABLET 2 tabs daily for 3 days, 1 tab daily for 3 days, 1/2 tab daily for 2 days PREDNISONE 00312960832 No Longer Active Tu Landeros MD Active XANAX 0.5 MG ORAL TABLET 1 tablet every 6 hrs prn ALPRAZOLAM 77112076422 No Longer Active Tu Landeros MD Active PREDNISONE 20 MG ORAL TABLET 2 tabs daily for 3 days, 1 tab daily for 3 days, 1/2 tab daily for 2 days PREDNISONE 50281759774 No Longer Active Tu Landeros MD Active TRIAMCINOLONE ACETONIDE 0.1 % EXTERNAL OINTMENT Apply to affected areas TID for up to 2 weeks TRIAMCINOLONE ACETONIDE 42296576786 No Longer Active Tu Landeros MD Active LORTAB 5-500 MG ORAL TABLET 1/2 to 1 tablet by mouth every 4 hours as needed for pain HYDROCODONE-ACETAMINOPHEN 72085235083 No Longer Active Tu Landeros MD Active MULTIVITAMINS TABS Take one by mouth daily MULTIPLE VITAMIN 70072094155 No Longer Active Tu Landeros MD Active MELATONIN 5 MG ORAL TABLET Take one by mouth daily MELATONIN 17601365246 No Longer Active Tu Landeros MD Active SOMA 350 MG ORAL TABLET 1 po q 6 hours prn spasm CARISOPRODOL 93109907321 No Longer Active Tu Landeros MD Active MECLIZINE HCL 25 MG ORAL TABLET CHEWABLE 1 four times a day as needed for dizziness MECLIZINE HCL 58225547685 No Longer Active Fab Morales DO Active ANGEL BREEZE 2 TEST IN VITRO DISK test tid prn GLUCOSE BLOOD 97515787761 No Longer Active Negra Scott RN Active REGLAN 10 MG ORAL TABLET 1 po TID PRN Nausea METOCLOPRAMIDE HCL 15963262310 No Longer Active Tu Landeros MD Active METFORMIN HCL 500 MG ORAL TABLET 1 PO BID METFORMIN HCL 65029570988 No Longer Active Tu Landeros MD Active AMBIEN 10 MG ORAL TABLET 1 tab by mouth at bedtime as needed for sleep 06/10 ZOLPIDEM TARTRATE 84843769933 No Longer Active Tu Landeros MD Active FLUOXETINE HCL 40 MG ORAL CAPSULE 1 po q day FLUOXETINE HCL 33466532586 No Longer Active Mayra Terry Active TRILIPIX 135 MG ORAL CAPSULE DELAYED RELEASE 1 po qd CHOLINE FENOFIBRATE 77123728358 No Longer Active Tu Landeros MD Active AMBIEN 10 MG ORAL TABLET 1 tab by mouth at bedtime as needed for sleep 06/10 AMBIEN 10 MG ORAL TABLET 727697 ZOLPIDEM TARTRATE Inactive METFORMIN HCL 500 MG ORAL TABLET 1 PO BID METFORMIN HCL 500 MG ORAL TABLET 752021 METFORMIN HCL Inactive REGLAN 10 MG ORAL TABLET 1 po TID PRN Nausea REGLAN 10 MG ORAL TABLET 992030 METOCLOPRAMIDE HCL Inactive MECLIZINE HCL 25 MG ORAL TABLET CHEWABLE 1 four times a day as needed for dizziness MECLIZINE HCL 25 MG ORAL TABLET CHEWABLE 124946 MECLIZINE HCL Inactive SOMA 350 MG ORAL TABLET 1 po q 6 hours prn spasm SOMA 350 MG ORAL TABLET 446892 CARISOPRODOL Inactive MELATONIN 5 MG ORAL TABLET Take one by mouth daily MELATONIN 5 MG ORAL TABLET 048138 MELATONIN Inactive MULTIVITAMINS TABS Take one by mouth daily MULTIVITAMINS TABS MULTIPLE VITAMIN Inactive LORTAB 5-500 MG ORAL TABLET 1/2 to 1 tablet by mouth every 4 hours as needed for pain LORTAB 5-500 MG ORAL TABLET HYDROCODONE- ACETAMINOPHEN Inactive XANAX 0.5 MG ORAL TABLET 1 tablet every 6 hrs prn XANAX 0.5 MG ORAL TABLET 129886 ALPRAZOLAM Inactive AUGMENTIN 875-125 MG ORAL TABLET 1 tab by mouth twice daily with food AUGMENTIN 875-125 MG ORAL TABLET 731421 AMOXICILLIN-POT CLAVULANATE Inactive ALPRAZOLAM 0.5 MG ORAL TABLET 1 tab every 6hrs as needed ALPRAZOLAM 0.5 MG ORAL TABLET 901599 ALPRAZOLAM Inactive SPIRONOLACTONE 25 MG ORAL TABLET 0.5 tablet by mouth daily 09/09 SPIRONOLACTONE 25 MG ORAL TABLET 715961 SPIRONOLACTONE Inactive ACCU-CHEK KEYONA PLUS w/Device KIT [...] times daily as needed ACCU-CHEK FASTCLIX LANCETS 28546191493 LANCETS Inactive TRAMADOL HCL 50 MG ORAL TABLET 1 tablets every 6 hours as needed for pain TRAMADOL HCL 50 MG ORAL TABLET 198153 TRAMADOL HCL Inactive VENLAFAXINE HCL 75 MG ORAL TABLET 1 po BID VENLAFAXINE HCL 75 MG ORAL TABLET 350223 VENLAFAXINE HCL Inactive HYDROCODONE-ACETAMINOPHEN 5-500 MG ORAL TABLET take one po Q 4-6 hours prn HYDROCODONE-ACETAMINOPHEN 5-500 MG ORAL TABLET HYDROCODONE-ACETAMINOPHEN Inactive LORTAB 5-500 MG ORAL TABLET 1/2 to 1 tablet by mouth every 4 hours as needed for pain LORTAB 5-500 MG ORAL TABLET HYDROCODONE- ACETAMINOPHEN Inactive LAMISIL 250 MG ORAL TABLET 1 po qd LAMISIL 250 MG ORAL TABLET 050418 TERBINAFINE HCL Inactive VENLAFAXINE HCL 37.5 MG ORAL TABLET 1 po BID VENLAFAXINE HCL 37.5 MG ORAL TABLET 329875 VENLAFAXINE HCL Inactive CIPRO 500 MG ORAL TABLET 1 tablet by mouth twice daily CIPRO 500 MG ORAL TABLET 974338 CIPROFLOXACIN HCL Inactive VENLAFAXINE HCL 75 MG ORAL TABLET 1 po BID VENLAFAXINE HCL 75 MG ORAL TABLET 946300 VENLAFAXINE HCL Inactive SIMVASTATIN 40 MG ORAL TABLET Take one by mouth daily SIMVASTATIN 40 MG ORAL TABLET 135008 SIMVASTATIN Inactive OMEPRAZOLE 20 MG ORAL TABLET DELAYED RELEASE 1 PO 30 MIN BEFORE 1ST MEAL 2010 OMEPRAZOLE 20 MG ORAL TABLET DELAYED RELEASE 253443 OMEPRAZOLE Inactive FENOFIBRATE 145 MG ORAL TABLET 1 po qd FENOFIBRATE 145 MG ORAL TABLET 573095 FENOFIBRATE Inactive BACTRIM DS 800-160 MG ORAL TABLET 1 bid x 14 day start 09-28-13 BACTRIM DS 800-160 MG ORAL TABLET 662211 SULFAMETHOXAZOLE- TRIMETHOPRIM Inactive B-12 100 MCG ORAL TABLET Take one by mouth daily B-12 100 MCG ORAL TABLET CYANOCOBALAMIN Inactive GABAPENTIN 100 MG ORAL CAPSULE 1 po bid GABAPENTIN 100 MG ORAL CAPSULE 298931 GABAPENTIN Inactive HYDROCODONE-ACETAMINOPHEN 5-325 MG ORAL TABLET 1 tab by mouth every 6 hours as needed for pain HYDROCODONE-ACETAMINOPHEN 5-325 MG ORAL TABLET 401998 HYDROCODONE-ACETAMINOPHEN Inactive CIPRO 500 MG ORAL TABLET 1 bid x 14 days start 09-28-13 CIPRO 500 MG ORAL TABLET 039453 CIPROFLOXACIN HCL Inactive ALIGN 4 MG ORAL [...] SODIUM 50 MG ORAL TABLET DELAYED RELEASE 449225 DICLOFENAC SODIUM Inactive PREDNISONE 20 MG ORAL TABLET 2 tablets once daily for 2 days, then 1 tablet once daily for 2 days PREDNISONE 20 MG ORAL TABLET 382161 PREDNISONE Inactive TRUEDRAW LANCING DEVICE Test twice a day dx 250.0 TRUEDRAW LANCING DEVICE LANCET DEVICES Inactive TRUERESULT BLOOD GLUCOSE w/Device KIT test blood sugar twice daily dx 250.00 TRUERESULT BLOOD GLUCOSE w/Device KIT BLOOD GLUCOSE MONITORING SUPPL Inactive FLONASE 50 MCG/ACT NASAL SUSPENSION 1 spray each nostril twice daily until bottle empty FLONASE 50 MCG/ACT NASAL SUSPENSION 1198451 FLUTICASONE PROPIONATE Inactive VENTOLIN HFA 108 (90 Base) MCG/ACT INHALATION AEROSOL SOLUTION 1-2 puffs every 4 hours if needed for cough/congestion VENTOLIN HFA 108 (90 Base) MCG/ACT INHALATION AEROSOL SOLUTION ALBUTEROL SULFATE Inactive REQUIP 2 MG ORAL TABLET Take one tablet at bedtime prn REQUIP 2 MG ORAL TABLET 589326 ROPINIROLE HCL Inactive SUPER B COMPLEX/VITAMIN C ORAL TABLET 1 qd SUPER B COMPLEX/VITAMIN C ORAL TABLET 12069124670 B COMPLEX-C Inactive TRUEDRAW LANCING DEVICE test blood sugar twice daily dx: 250.00 TRUEDRAW LANCING DEVICE LANCET DEVICES Inactive TRUETEST TEST IN VITRO STRIP test blood sugar twice daily. DX 250.0 TRUETEST TEST IN VITRO STRIP GLUCOSE BLOOD Inactive CYCLOBENZAPRINE HCL 10 MG ORAL TABLET 1 po TID PRN Muscle Spasm CYCLOBENZAPRINE HCL 10 MG ORAL TABLET 579919 CYCLOBENZAPRINE HCL Inactive DICLOFENAC SODIUM 50 MG ORAL TABLET DELAYED RELEASE 1 po BID PRN Pain DICLOFENAC SODIUM 50 MG ORAL TABLET DELAYED RELEASE 394968 DICLOFENAC SODIUM Inactive DICLOFENAC SODIUM 75 MG ORAL TABLET DELAYED RELEASE 1 po BID PRN Pain DICLOFENAC SODIUM 75 MG ORAL TABLET DELAYED RELEASE 527294 DICLOFENAC SODIUM Inactive NASONEX 50 MCG/ACT NASAL SUSPENSION 2 actuations in each nostril q day 07/15 NASONEX 50 MCG/ACT NASAL SUSPENSION 6442006 MOMETASONE FUROATE Inactive GUAIFENESIN ER 600 MG ORAL TABLET EXTENDED RELEASE 12 HOUR 1 twice a day as needed for congestion GUAIFENESIN ER 600 MG ORAL TABLET EXTENDED RELEASE 12 HOUR GUAIFENESIN Inactive AZITHROMYCIN 250 MG ORAL TABLET 2 po qd x 1, then 1 po qd x 4 AZITHROMYCIN 250 MG ORAL TABLET 387599 AZITHROMYCIN Inactive PROMETHAZINE-CODEINE 6.25-10 MG/5ML ORAL SYRUP 5ml po q6hr PRN Cough PROMETHAZINE-CODEINE 6.25-10 MG/5ML ORAL SYRUP 773774 PROMETHAZINE-CODEINE Inactive TRIAMCINOLONE ACETONIDE 0.1 % EXTERNAL OINTMENT Apply to affected areas TID for up to 2 weeks TRIAMCINOLONE ACETONIDE 0.1 % EXTERNAL OINTMENT 1588720 TRIAMCINOLONE ACETONIDE Inactive PREDNISONE 20 MG ORAL TABLET 2 tabs daily for 3 days, 1 tab daily for 3 days, 1/2 tab daily for 2 days PREDNISONE 20 MG ORAL TABLET 506253 PREDNISONE Inactive PREDNISONE 20 MG ORAL TABLET 2 tabs daily for 3 days, 1 tab daily for 3 days, 1/2 tab daily for 2 days PREDNISONE 20 MG ORAL TABLET 206506 PREDNISONE Inactive BACTRIM DS 800-160 MG ORAL TABLET 1 po BID x 7 days BACTRIM DS 800-160 MG ORAL TABLET 410807 SULFAMETHOXAZOLE-TRIMETHOPRIM Inactive ZITHROMAX 250 MG ORAL TABLET 2 po today, then 1 po q days 2-5 ZITHROMAX 250 MG ORAL TABLET 753598 AZITHROMYCIN Inactive PREDNISONE 20 MG ORAL TABLET 2 po qd x 5 days PREDNISONE 20 MG ORAL TABLET 875628 PREDNISONE Inactive Advance Directives Directive Description Start Date DISCUSSED WITH PATIENT -- NO DECISION MADE Immunizations Vaccine Administration Date Value Standard Description Seasonal influenza vaccine, injectable, containing preservative, for > 3 years old (Afluria, FluLaval, Fluzone, Fluvirin, Fluarix, Agriflu(>=18 yo)) Fluzone (>3 yrs.) [[id number]] Influenza, seasonal, injectable influenza immunization (Flu Vax) has been administered 02/22/2012 influenza virus vaccine, unspecified formulation Seasonal influenza vaccine, injectable, containing preservative, for > 3 years old (Afluria, FluLaval, Fluzone, Fluvirin, Fluarix, Agriflu(>=18 yo)) Fluzone (>3 yrs.) [[id number]] Influenza, seasonal, injectable Vital Signs Date Name [...] Measured blood pressure, diastolic 49 mm[Hg] BP ca blood pressure, systolic 125 mm[Hg] BP sys height E&M 60.25 [in_us] Bdy height pulse rate E&M 62 /min Heart rate temperature E&M 98.1 [degF] Body temperature weight E&M 298.31 [lb_av] Weight Measured Diagnostic Results Date Name Value Unit Range Description Lab Report: CBC, Comp. Metabolic Panel, HGBA1C, Lipid Panel, Magnesium, ... - Chemistry sodium, serum 141 mmol/L 307-800 6855/01/16 carbon dioxide, venous blood 28.3 mmol/L 21.0-32.0 [...] 6.7 % 4.3-6.0 cholesterol, serum 106 mg/dL 490-508 9637/01/16 triglyceride, serum, fasting 173 mg/dL 30-200 HDL cholesterol, serum 29 mg/dL 32-60 LDL cholesterol, serum 42 mg/dL 0-130 albumin/creatinine ratio, urine <30 mg/g Normal mg/g mg/g{creat} 0-29 Lab Report: CBC, Comp. Metabolic Panel, HGBA1C, Lipid Panel, Magnesium, ... - Hematology platelet count 312 10^3/MM^3 10*3/mm3 442-905 8991/01/16 red blood cell distribution width 12.3 % 11.6-14.8 mean corpuscular hemoglobin concentration, RBC 31.5 G/DL % 31.8- 35.4 mean corpuscular hemoglobin, RBC 28.4 pg 27.0-31.2 mean corpuscular volume, RBC 90 fL 80-97 hematocrit, blood 42.5 % 37.0-47.0 hemoglobin, blood 13.4 g/dL 12.0-16.0 erythrocyte (RBC) count 4.70 10^6/MM^3 10*6/mm3 3.80-5.80 leukocyte count, blood 6.9 10^3/MM^3 10*3/mm3 4.6-10.2 Lab Report: CBC, Comp. Metabolic Panel, HGBA1C, Lipid Panel, Magnesium, ... - Lab microalbumin, urine 10 mg/L 0-19 Lab Report: Comp. Metabolic Panel, HGBA1C, Magnesium - Chemistry hemoglobin A1C, blood, as % of total hemoglobin 6.4 % 4.3-6.0 urea nitrogen, blood 19 mg/dL 7-18 creatinine, serum 0.95 mg/dL 0.60-1.30 alanine aminotransferase (SGPT), serum 36 U/L 12-78 aspartate aminotransferase (SGOT), serum 28 U/L 15-37 calcium, serum 9.1 mg/dL 8.5-10.1 bilirubin, serum, total 0.20 mg/dL 0.00-1.00 sodium, serum 142 mmol/L 809-927 4883/07/16 carbon dioxide, venous blood 29.4 mmol/L 21.0-32.0 potassium, serum 4.7 mmol/L 3.5-5.2 chloride, serum 106 mmol/L 98-107 blood glucose 130 mg/dL 65-95 Lab Report: HGBA1C - Chemistry hemoglobin A1C, blood, as % of total hemoglobin 6.5 % 4.3-6.0 Lab Report: Lipid Panel - Chemistry cholesterol, serum 170 mg/dL 026-309 9040/07/16 triglyceride, serum, fasting 266 mg/dL 30-200 HDL cholesterol, serum 42 mg/dL 32-60 LDL cholesterol, serum 75 mg/dL 0-130 Encounters Code Encounter Date Provider Facility CPT-[id number] Level 4 Est. Patient 14:46:36 CDT Tu Landeros MD [facility] CPT-14281 Level 3 Est. Patient 10:28:05 CDT Tu Landeros MD [facility] CPT-66874 Level 3 Est. Patient 09:11:32 CDT Tu Landeros MD [facility] CPT-36618 Level 3 Est. 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 Patient 13:42:02 FLEET DRIVER Tu Landeros MD [facility] CPT-07781 Level 3 Est. Patient 14:20:36 CDT Tu Landeros MD [facility] CPT-93417 Level 4 Est. Patient 14:28:34 CDT Tu Landeros MD [facility] CPT-33207 Level 3 Est. Patient 13:33:09 CDT Tu Landeros MD [facility] CPT-39931 Level 4 Est. Patient 14:29:21 CDT Tu Landeros MD [facility] CPT-46544 Level 4 Est. 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 Patient 14:40:19 CDT Tu Landeros MD [facility] CPT-30766 Level 4 Est. Patient 14:06:04 FLEET DRIVER Tu Landeros MD [facility] CPT-24058 Level 3 Est. Patient 14:05:18 FLEET DRIVER Tu Landeros MD [facility] CPT-48838 Level 3 Est. Patient 10:06:54 FLEET DRIVER Miranda Farah APRN [facility] CPT-99577 Level 4 Est. Patient 13:50:18 FLEET DRIVER Tu Landeros MD [facility] CPT-92972 Level 3 Est. Patient 10:30:04 CDT Tu Landeros MD [facility] CPT-19142 Level 4 Est. Patient 11:03:38 CDT Tu Landeros MD [facility] CPT-09835 Level 3 Est. Patient 10:20:44 CDT Fab Morales DO [facility] CPT-26376 Level 4 Est. Patient 14:38:57 CDT Tu Landeros MD [facility] CPT-16051 Level 4 Est. Patient 14:27:39 FLEET DRIVER Tu Landeros MD [facility] CPT-71556 Level 4 Est. Patient 09:45:25 CDT Tu Landeros MD [facility] CPT-36068 Level 4 Est. Patient 09:05:20 FLEET DRIVER Tu Landeros MD [facility] CPT-61353 Level 4 Est. Patient 14:09:06 CDT Tu Landeros MD [facility] CPT-56366 Level 3 Est. Patient 13:36:54 CDT Tu Landeros MD [facility] CPT-57236 Level 3 Est. Patient 08:59:14 CDT Tu Lnaderos MD [facility] CPT-58758 Level 3 Est. Patient 13:48:35 CDT Fab Morales DO [facility] CPT-05347 Level 4 Est. Patient 10:05:48 CDT Tu Landeros MD [facility] CPT-82971 Level 3 Est. Patient 13:38:42 CDT Marek BANKS [facility] CPT-82719 Level 5 Est. Patient 08:08:39 CDT Jerrica FRANCIS [facility] CPT-89871 Level 4 Est. Patient 14:23:38 CDT Tu Landeros MD [facility] CPT-55812 Level 3 Est. Patient 11:44:04 CDT Tu Landeros MD [facility] CPT-97876 Level 3 Est. 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 Patient 11:03:14 FLEET DRIVER Tu Landeros MD [facility] CPT-99011 Level 3 Est. Patient 12:42:49 CDT Tu Landeros MD [facility] CPT-74501 Level 3 Est. Patient 11:52:06 CDT Tu Landeros MD [facility] CPT-21259 Level 3 Est. Patient 13:58:11 CDT Tu Landeros MD [facility] CPT-33175 Level 3 Est. Patient 17:50:07 CDT Fab Morales DO [facility] CPT-91288 Level 3 Est. Patient 12:06:29 CDT Elvira Cervantes MD, PhD [facility] CPT-43076 Level 3 Est. Patient 15:50:32 CDT Tu Landeros MD [facility] CPT-20723 Level 4 Est. Patient 16:08:29 CDT Tu Landeros MD [facility] CPT-08860 Level 3 Est. Patient 16:04:19 CDT Tu Landeros MD [facility] CPT-36982 Level 3 Est. Patient 11:22:30 FLEET DRIVER Tu Landeros MD [facility] CPT-73941 Level 4 Est. Patient 16:24:02 FLEET DRIVER Tu Landeros MD [facility] CPT-81324 Level 3 Est. Patient 17:21:23 FLEET DRIVER Tu Landeros MD [facility] Procedures Code Procedure Name Date Entry Date Standard Description CPT-G0439 Subsequent Annual Wellness Exam 14:46:36 CDT CPT-93805 Shoulder, right, comp min 2V - XRAY USE ONLY 13:50:22 CDT CPT-G0009 Administration of Pneumococcal Vaccine 15:08:26 CDT CPT-80995 Prevnar 13 Intramuscular Suspension 15:08:26 CDT 10/08 CPT-G0439 Subsequent Annual Wellness Exam 14:29:22 CDT CPT-74088 Venipuncture Draw Fee 13:15:35 CDT CPT-26289 Magnesium - LAB USE ONLY 11:14:20 FLEET DRIVER CPT-15618 Lipid - LAB USE ONLY 11:14:20 FLEET DRIVER CPT-13951 HGBA1C - LAB USE ONLY 11:14:20 FLEET DRIVER CPT-68473 CMP - LAB USE ONLY 11:14:19 FLEET DRIVER CPT-94724 CBC - LAB USE ONLY 11:14:19 FLEET DRIVER CPT-55102 Venipuncture Draw Fee 11:14:18 FLEET DRIVER CPT-84259 First Vx - Ix admin for Medicare patients 16:46:52 CDT CPT-81397 Fluzone Preservative Free Intramuscular Suspension 16:46 :51 CDT CPT-56079 CBC - LAB USE ONLY 17:14:46 CDT CPT-87588 HGBA1C - LAB USE ONLY 17:14:46 CDT CPT-06074 Venipuncture Draw Fee 17:14:46 CDT CPT-G0438 Initial Annual Wellness Exam 14:13:04 CDT CPT-94014 Breathing Tx 10:06:54 FLEET DRIVER CPT-51411 Postop F/U Visit 10:02:45 CDT CPT-LR Lesion Removal 09:02:56 CDT CPT-JTINJ Asp/Joint Injection 15:51:27 FLEET DRIVER CPT-OV Office Visit 15:52:02 FLEET DRIVER CPT-OV Office Visit 15:45:11 CDT CPT-000 Give Zostavax 14:09:06 CDT CPT-25206 Administration single or combination vaccine inc oral 15 :19:04 CDT CPT-15936 Zoster Vaccine (Zostavax) 15:19:04 CDT CPT-46167 Administration single or combination vaccine inc oral 20 :51:03 CDT CPT-50179 Influenza split virus > age 3 20:51:03 CDT CPT-23563 No Charge Offi Visit 14:52:03 CDT CPT-OV Office Visit 14:57:43 CDT CPT-OV Office Visit 15:22:32 CDT CPT-21537 Administration single or combination vaccine inc oral 11 :33:15 CDT CPT-81796 Influenza split virus > age 3 11:33:15 CDT
--- OUTSIDE RECORDS SUMMARY | 2018-04-25 12:19 | XMS REPORT | Clinical Summary ---
Author Author Admin, SACHI Organization [employer] Address Unknown Phone Unavailable Allergies, Adverse Reactions, [...] limb Shoulder pain, right 719.41 Resolved Tu aLnderos MD Pain in joint involving shoulder region Great toe pain 729.5 Resolved Tu Landeros MD Pain in limb Hypomagnesemia 275.2 Active Tu Landeros MD Disorders of magnesium metabolism URI 465.9 Inactive Lesli Kellogg [employer] Acute upper respiratory infections of unspecified site [...] for up to 2 weeks TRIAMCINOLONE ACETONIDE 84929669959 Active Tu Landeros MD Active INDOMETHACIN 50 MG ORAL CAPSULE 1 po TID PRN Pain INDOMETHACIN 69180309244 Active Tu Landeros MD Active PROMETHAZINE-CODEINE 6.25-10 MG/5ML ORAL SYRUP 5ml po q6hr PRN Cough PROMETHAZINE-CODEINE 85316180238 No Longer Active Tu Landeros MD Active AZITHROMYCIN 250 MG ORAL TABLET 2 po qd x 1, then 1 po qd x 4 AZITHROMYCIN 16705565917 No Longer Active Tu Landeros MD Active GUAIFENESIN ER 600 MG ORAL TABLET EXTENDED RELEASE 12 HOUR 1 twice a day as needed for congestion GUAIFENESIN 84684076164 No Longer Active Tu Landeros MD Active PREDNISONE 20 MG ORAL TABLET 2 po qd x 5 days PREDNISONE 97120689461 No Longer Active Tu Landeros MD Active FLUTICASONE PROPIONATE 50 MCG/ACT NASAL SUSPENSION 2 sprays/nostril qd PRN Congestion/Allergies FLUTICASONE PROPIONATE 24229801345 Active Tu Landeros MD Active NASONEX 50 MCG/ACT NASAL SUSPENSION 2 actuations in each nostril q day 07/15 MOMETASONE FUROATE 63135587448 No Longer Active Tu Landeros MD Active MAGNESIUM OXIDE 400 MG ORAL TABLET 1 po BID MAGNESIUM OXIDE 54384746114 Active Tu Landeros MD Active SIMVASTATIN 20 MG ORAL TABLET 0.5 po qHS SIMVASTATIN 83850317844 Active Tu Landeros MD Active DICLOFENAC SODIUM 75 MG ORAL TABLET DELAYED RELEASE 1 po BID PRN Pain DICLOFENAC SODIUM 03920312183 No Longer Active Tu Landeros MD Active GABAPENTIN 100 MG ORAL CAPSULE 1 po TID GABAPENTIN 80512690393 Active Tu Landeros MD Active DICLOFENAC SODIUM 50 MG ORAL TABLET DELAYED RELEASE 1 po BID PRN Pain DICLOFENAC SODIUM 48963676198 No Longer Active Tu Landeros MD Active CYCLOBENZAPRINE HCL 10 MG ORAL TABLET 1 po TID PRN Muscle Spasm CYCLOBENZAPRINE HCL 94320691344 No Longer Active Tu Landeros MD Active INVOKANA 100 MG ORAL TABLET 1 po qd CANAGLIFLOZIN 70107536737 Active José Luis Becerra MD Active GLIPIZIDE 5 MG ORAL TABLET 1 po qd GLIPIZIDE 75623707409 No Longer Active Tu Landeros MD Active VENLAFAXINE HCL 75 MG ORAL TABLET 1 po BID VENLAFAXINE HCL 59798396340 Active Tu Landeros MD Active GLIMEPIRIDE 1 MG ORAL TABLET 1 po qd GLIMEPIRIDE 73005838795 No Longer Active Tu Landeros MD Active TRUE METRIX BLOOD GLUCOSE TEST IN VITRO STRIP Test blood sugar BID Dx: E11.9 GLUCOSE BLOOD 79481526574 Active Tu Landeros MD Active TRUE METRIX AIR GLUCOSE METER w/Device KIT Test blood glucose BID Dx: E11.9 BLOOD GLUCOSE MONITORING SUPPL 08687758647 Active Tu Landeros MD Active TRUETEST TEST IN VITRO STRIP test blood sugar twice daily. DX 250.0 GLUCOSE BLOOD 00897630477 No Longer Active Mirna Stanley LPN Active TRUEDRAW LANCING DEVICE test blood sugar twice daily dx: 250.00 LANCET DEVICES 57019512411 No Longer Active Mirna Stanley LPN Active ENALAPRIL MALEATE 20 MG ORAL TABLET 2 po qd ENALAPRIL MALEATE 06135789006 Active Tu Landeros MD Active SUPER B COMPLEX/VITAMIN C ORAL TABLET 1 qd B COMPLEX- C 17255701513 No Longer Active Tu Landeros MD Active ASPIRIN EC 81 MG ORAL TABLET DELAYED RELEASE 1 po qd ASPIRIN 13903623834 Active Tu Landeros MD Active GLUCOSAMINE 500 MG TABS 2 po qd GLUCOSAMINE Active Tu Landeros MD Active FISH OIL 1000 MG ORAL CAPSULE 1 po qd OMEGA-3 FATTY ACIDS 26100303778 Active Tu Landeros MD Active METFORMIN HCL 1000 MG ORAL TABLET 1 po BID METFORMIN HCL 57993795741 Active Tu Landeros MD Active KLOR-CON 10 10 MEQ ORAL TABLET EXTENDED RELEASE 2 po qd POTASSIUM CHLORIDE 40590105417 Active Tu Landeros MD Active FUROSEMIDE 40 MG ORAL TABLET 1 po qd FUROSEMIDE 07711478598 Active Tu Landeros MD Active REQUIP 2 MG ORAL TABLET 1 po qHS PRN Restless legs ROPINIROLE HCL 75898505221 Active Tu Landeros MD Active REQUIP 2 MG ORAL TABLET Take one tablet at bedtime prn ROPINIROLE HCL 94578235591 No Longer Active Tu Landeros MD Active VENTOLIN HFA 108 (90 Base) MCG/ACT INHALATION AEROSOL SOLUTION 1-2 puffs every 4 hours if needed for cough/congestion ALBUTEROL SULFATE 27645153971 No Longer Active Ambika Aden APRN Active ZITHROMAX 250 MG ORAL TABLET 2 po today, then 1 po q days 2-5 AZITHROMYCIN 50362451251 No Longer Active Miranda Farah APRN Active FLONASE 50 MCG/ACT NASAL SUSPENSION 1 spray each nostril twice daily until bottle empty FLUTICASONE PROPIONATE 80805270507 No Longer Active Tu Landeros MD Active COLACE 100 MG ORAL CAPSULE 1 po BID PRN Constipation DOCUSATE SODIUM 50245910331 Active Tu Landeros MD Active TRUERESULT BLOOD GLUCOSE w/Device KIT test blood sugar twice daily dx 250.00 BLOOD GLUCOSE MONITORING SUPPL 73580235015 No Longer Active Tu Landeros MD Active TRUEDRAW LANCING DEVICE Test twice a day dx 250.0 LANCET DEVICES 04977192700 No Longer Active Tu Landeros MD Active PREDNISONE 20 MG ORAL TABLET 2 tablets once daily for 2 days, then 1 tablet once daily for 2 days PREDNISONE 92181248180 No Longer Active Tu Landeros MD Active DICLOFENAC SODIUM 50 MG ORAL TABLET DELAYED RELEASE 1 tablet by mouth three times a day as needed DICLOFENAC SODIUM 76024088996 No Longer Active Fab Morales DO Active EMBRACE BLOOD GLUCOSE TEST IN VITRO STRIP test blood sugar twice daily DX 250.0 GLUCOSE BLOOD 04474467932 No Longer Active Tu Landeros MD Active TRUETEST TEST IN VITRO STRIP test blood sugar three times daily dx: 250.00 GLUCOSE BLOOD 28738316529 No Longer Active Suze VOGEL Active TRUERESULT BLOOD GLUCOSE w/Device KIT use to test blood sugar tid dx: 250.00 BLOOD GLUCOSE MONITORING SUPPL 06964198223 No Longer Active Suzebianca VOGEL Active ALIGN 4 MG ORAL CAPSULE 1 tid PROBIOTIC PRODUCT 17811206984 No Longer Active Shaun Sy MD Active CIPRO 500 MG ORAL TABLET 1 bid x 14 days start 09-28-13 CIPROFLOXACIN HCL 78618143193 No Longer Active Shaun Sy MD Active TRAMADOL HCL 50 MG ORAL TABLET 1-2 tablets every 6 hours as needed for pain TRAMADOL HCL 72793545216 Active Tu Landeros MD Active HYDROCODONE-ACETAMINOPHEN 5-325 MG ORAL TABLET 1 tab by mouth every 6 hours as needed for pain HYDROCODONE-ACETAMINOPHEN 94572897244 No Longer Active Tu Landeros MD Active OMEPRAZOLE 20 MG ORAL CAPSULE DELAYED RELEASE 1 po q a.m. OMEPRAZOLE 41364267404 Active Tu Landeros MD Active GABAPENTIN 100 MG ORAL CAPSULE 1 po bid GABAPENTIN 30468361987 No Longer Active Tu Landeros MD Active B-12 100 MCG ORAL TABLET Take one by mouth daily CYANOCOBALAMIN 25153202210 No Longer Active Tu Landeros MD Active BACTRIM DS 800-160 MG ORAL TABLET 1 bid x 14 day start 09-28-13 SULFAMETHOXAZOLE-TRIMETHOPRIM 31199528751 No Longer Active Tu Landeros MD Active CARVEDILOL 12.5 MG ORAL TABLET 1 po BID CARVEDILOL 62323107926 Active Tu Landeros MD Active TRILIPIX 135 MG ORAL CAPSULE DELAYED RELEASE 1 q hs CHOLINE FENOFIBRATE 04786752943 Active Tu Landeros MD Active FENOFIBRATE 145 MG ORAL TABLET 1 po qd FENOFIBRATE 66947532310 No Longer Active AJSPREET Perez Active OMEPRAZOLE 20 MG ORAL TABLET DELAYED RELEASE 1 PO 30 MIN BEFORE 1ST MEAL 2010 OMEPRAZOLE 13107638201 No Longer Active JASPREET Perez Active SIMVASTATIN 40 MG ORAL TABLET Take one by mouth daily SIMVASTATIN 49975216089 No Longer Active Wales Luverne, RMA Active VENLAFAXINE HCL 75 MG ORAL TABLET 1 po BID VENLAFAXINE HCL 35867336578 No Longer Active JASPREET Perez Active CIPRO 500 MG ORAL TABLET 1 tablet by mouth twice daily CIPROFLOXACIN HCL 27728534713 No Longer Active Tu Landeros MD Active VENLAFAXINE HCL 37.5 MG ORAL TABLET 1 po BID VENLAFAXINE HCL 18636569783 No Longer Active Suze Nicole NURYSA Active LAMISIL 250 MG ORAL TABLET 1 po qd TERBINAFINE HCL 43129392553 No Longer Active Tu Landeros MD Active LORTAB 5-500 MG ORAL TABLET 1/2 to 1 tablet by mouth every 4 hours as needed for pain HYDROCODONE-ACETAMINOPHEN 67040660240 No Longer Active Tu Landeros MD Active HYDROCODONE-ACETAMINOPHEN 5-500 MG ORAL TABLET take one po Q 4-6 hours prn HYDROCODONE-ACETAMINOPHEN 30579678704 No Longer Active Tu Landeros MD Active BACTRIM DS 800-160 MG ORAL TABLET 1 po BID x 7 days SULFAMETHOXAZOLE-TRIMETHOPRIM 10934540432 No Longer Active Tu Landeros MD Active VENLAFAXINE HCL 75 MG ORAL TABLET 1 po BID VENLAFAXINE HCL 79275543362 No Longer Active Elvira Cervantes MD PhD Active TRAMADOL HCL 50 MG ORAL TABLET 1 tablets every 6 hours as needed for pain TRAMADOL HCL 46120497274 No Longer Active Tu Landeros MD Active ACCU-CHEK FASTCLIX LANCETS Use to check bloodsugar three times daily as needed LANCETS 85486714164 No Longer Active Tu Landeros MD Active ACCU-CHEK KEYONA PLUS IN VITRO STRIP Use for testing bloodsugars three times daily as needed GLUCOSE BLOOD 84571146490 No Longer Active Tu Landeros MD Active ACCU-CHEK KEYONA PLUS w/Device KIT Use for testing bloodsugars three times daily as needed BLOOD GLUCOSE MONITORING SUPPL 65107224021 No Longer Active Tu Landeros MD Active SPIRONOLACTONE 25 MG ORAL TABLET 0.5 tablet by mouth daily 09/09 SPIRONOLACTONE 42925966539 No Longer Active Tu Landeros MD Active ALPRAZOLAM 0.5 MG ORAL TABLET 1 tab every 6hrs as needed ALPRAZOLAM 04832282567 No Longer Active Tu Landeros MD Active AUGMENTIN 875-125 MG ORAL TABLET 1 tab by mouth twice daily with food AMOXICILLIN-POT CLAVULANATE 10173683214 No Longer Active Tu Landeros MD Active PREDNISONE 20 MG ORAL TABLET 2 tabs daily for 3 days, 1 tab daily for 3 days, 1/2 tab daily for 2 days PREDNISONE 11176189159 No Longer Active Tu Landeros MD Active XANAX 0.5 MG ORAL TABLET 1 tablet every 6 hrs prn ALPRAZOLAM 33412062813 No Longer Active Tu Landeros MD Active PREDNISONE 20 MG ORAL TABLET 2 tabs daily for 3 days, 1 tab daily for 3 days, 1/2 tab daily for 2 days PREDNISONE 53023681630 No Longer Active Tu Landeros MD Active TRIAMCINOLONE ACETONIDE 0.1 % EXTERNAL OINTMENT Apply to affected areas TID for up to 2 weeks TRIAMCINOLONE ACETONIDE 19466207233 No Longer Active Tu Landeros MD Active LORTAB 5-500 MG ORAL TABLET 1/2 to 1 tablet by mouth every 4 hours as needed for pain HYDROCODONE-ACETAMINOPHEN 53757460093 No Longer Active Tu Landeros MD Active MULTIVITAMINS TABS Take one by mouth daily MULTIPLE VITAMIN 63663878018 No Longer Active Tu Landeros MD Active MELATONIN 5 MG ORAL TABLET Take one by mouth daily MELATONIN 00817386769 No Longer Active Tu Landeros MD Active SOMA 350 MG ORAL TABLET 1 po q 6 hours prn spasm CARISOPRODOL 34481742891 No Longer Active Tu Landeros MD Active MECLIZINE HCL 25 MG ORAL TABLET CHEWABLE 1 four times a day as needed for dizziness MECLIZINE HCL 30645754431 No Longer Active Fab Morales DO Active ANGEL BREEZE 2 TEST IN VITRO DISK test tid prn GLUCOSE BLOOD 39631984220 No Longer Active Negra Scott RN Active REGLAN 10 MG ORAL TABLET 1 po TID PRN Nausea METOCLOPRAMIDE HCL 32442388240 No Longer Active Tu Landeros MD Active METFORMIN HCL 500 MG ORAL TABLET 1 PO BID METFORMIN HCL 47792060581 No Longer Active Tu Landeros MD Active AMBIEN 10 MG ORAL TABLET 1 tab by mouth at bedtime as needed for sleep 06/10 ZOLPIDEM TARTRATE 91486789334 No Longer Active Tu Landeros MD Active FLUOXETINE HCL 40 MG ORAL CAPSULE 1 po q day FLUOXETINE HCL 80451843790 No Longer Active Mayra Terry Active TRILIPIX 135 MG ORAL CAPSULE DELAYED RELEASE 1 po qd CHOLINE FENOFIBRATE 91447948569 No Longer Active Tu Landeros MD Active AMBIEN 10 MG ORAL TABLET 1 tab by mouth at bedtime as needed for sleep 06/10 AMBIEN 10 MG ORAL TABLET 114804 ZOLPIDEM TARTRATE Inactive METFORMIN HCL 500 MG ORAL TABLET 1 PO BID METFORMIN HCL 500 MG ORAL TABLET 107153 METFORMIN HCL Inactive REGLAN 10 MG ORAL TABLET 1 po TID PRN Nausea REGLAN 10 MG ORAL TABLET 638462 METOCLOPRAMIDE HCL Inactive MECLIZINE HCL 25 MG ORAL TABLET CHEWABLE 1 four times a day as needed for dizziness MECLIZINE HCL 25 MG ORAL TABLET CHEWABLE 372713 MECLIZINE HCL Inactive SOMA 350 MG ORAL TABLET 1 po q 6 hours prn spasm SOMA 350 MG ORAL TABLET 611865 CARISOPRODOL Inactive MELATONIN 5 MG ORAL TABLET Take one by mouth daily MELATONIN 5 MG ORAL TABLET 982757 MELATONIN Inactive MULTIVITAMINS TABS Take one by mouth daily MULTIVITAMINS TABS MULTIPLE VITAMIN Inactive LORTAB 5-500 MG ORAL TABLET 1/2 to 1 tablet by mouth every 4 hours as needed for pain LORTAB 5-500 MG ORAL TABLET HYDROCODONE- ACETAMINOPHEN Inactive XANAX 0.5 MG ORAL TABLET 1 tablet every 6 hrs prn XANAX 0.5 MG ORAL TABLET 037737 ALPRAZOLAM Inactive AUGMENTIN 875-125 MG ORAL TABLET 1 tab by mouth twice daily with food AUGMENTIN 875-125 MG ORAL TABLET 148907 AMOXICILLIN-POT CLAVULANATE Inactive ALPRAZOLAM 0.5 MG ORAL TABLET 1 tab every 6hrs as needed ALPRAZOLAM 0.5 MG ORAL TABLET 367939 ALPRAZOLAM Inactive SPIRONOLACTONE 25 MG ORAL TABLET 0.5 tablet by mouth daily 09/09 SPIRONOLACTONE 25 MG ORAL TABLET 247388 SPIRONOLACTONE Inactive ACCU-CHEK KEYOAN PLUS w/Device KIT Use for testing bloodsugars three times daily as needed ACCU-CHEK KEYONA PLUS w/Device KIT BLOOD GLUCOSE MONITORING SUPPL Inactive ACCU-CHEK KEYONA PLUS IN VITRO STRIP Use for testing bloodsugars three times daily as needed ACCU-CHEK KEYONA PLUS IN VITRO STRIP GLUCOSE BLOOD Inactive ACCU-CHEK FASTCLIX LANCETS Use to check bloodsugar three times daily as needed ACCU-CHEK FASTCLIX LANCETS 83302516889 LANCETS Inactive TRAMADOL HCL 50 MG ORAL TABLET 1 tablets every 6 hours as needed for pain TRAMADOL HCL 50 MG ORAL TABLET 512971 TRAMADOL HCL Inactive VENLAFAXINE HCL 75 MG ORAL TABLET 1 po BID VENLAFAXINE HCL 75 MG ORAL TABLET 983910 VENLAFAXINE HCL Inactive HYDROCODONE-ACETAMINOPHEN 5-500 MG ORAL TABLET take one po Q 4-6 hours prn HYDROCODONE-ACETAMINOPHEN 5-500 MG ORAL TABLET HYDROCODONE-ACETAMINOPHEN Inactive LORTAB 5-500 MG ORAL TABLET 1/2 to 1 tablet by mouth every 4 hours as needed for pain LORTAB 5-500 MG ORAL TABLET HYDROCODONE- ACETAMINOPHEN Inactive LAMISIL 250 MG ORAL TABLET 1 po qd LAMISIL 250 MG ORAL TABLET 403738 TERBINAFINE HCL Inactive VENLAFAXINE HCL 37.5 MG ORAL TABLET 1 po BID VENLAFAXINE HCL 37.5 MG ORAL TABLET 194092 VENLAFAXINE HCL Inactive CIPRO 500 MG ORAL TABLET 1 tablet by mouth twice daily CIPRO 500 MG ORAL TABLET 457583 CIPROFLOXACIN HCL Inactive VENLAFAXINE HCL 75 MG ORAL TABLET 1 po BID VENLAFAXINE HCL 75 MG ORAL TABLET 166266 VENLAFAXINE HCL Inactive SIMVASTATIN 40 MG ORAL TABLET Take one by mouth daily SIMVASTATIN 40 MG ORAL TABLET 759909 SIMVASTATIN Inactive OMEPRAZOLE 20 MG ORAL TABLET DELAYED RELEASE 1 PO 30 MIN BEFORE 1ST MEAL 2010 OMEPRAZOLE 20 MG ORAL TABLET DELAYED RELEASE 632672 OMEPRAZOLE Inactive FENOFIBRATE 145 MG ORAL TABLET 1 po qd FENOFIBRATE 145 MG ORAL TABLET 113142 FENOFIBRATE Inactive BACTRIM DS 800-160 MG ORAL TABLET 1 bid x 14 day start 09-28-13 BACTRIM DS 800-160 MG ORAL TABLET 751975 SULFAMETHOXAZOLE- TRIMETHOPRIM Inactive B-12 100 MCG ORAL TABLET Take one by mouth daily B-12 100 MCG ORAL TABLET CYANOCOBALAMIN Inactive GABAPENTIN 100 MG ORAL CAPSULE 1 po bid GABAPENTIN 100 MG ORAL CAPSULE 969988 GABAPENTIN Inactive HYDROCODONE-ACETAMINOPHEN 5-325 MG ORAL TABLET 1 tab by mouth every 6 hours as needed for pain HYDROCODONE-ACETAMINOPHEN 5-325 MG ORAL TABLET 320155 HYDROCODONE-ACETAMINOPHEN Inactive CIPRO 500 MG ORAL TABLET 1 bid x 14 days start 09-28-13 CIPRO 500 MG ORAL TABLET 636142 CIPROFLOXACIN HCL Inactive ALIGN 4 MG ORAL [...] SODIUM 50 MG ORAL TABLET DELAYED RELEASE 543215 DICLOFENAC SODIUM Inactive PREDNISONE 20 MG ORAL TABLET 2 tablets once daily for 2 days, then 1 tablet once daily for 2 days PREDNISONE 20 MG ORAL TABLET 664218 PREDNISONE Inactive TRUEDRAW LANCING DEVICE Test twice a day dx 250.0 TRUEDRAW LANCING DEVICE LANCET DEVICES Inactive TRUERESULT BLOOD GLUCOSE w/Device KIT test blood sugar twice daily dx 250.00 TRUERESULT BLOOD GLUCOSE w/Device KIT BLOOD GLUCOSE MONITORING SUPPL Inactive FLONASE 50 MCG/ACT NASAL SUSPENSION 1 spray each nostril twice daily until bottle empty FLONASE 50 MCG/ACT NASAL SUSPENSION 4120678 FLUTICASONE PROPIONATE Inactive VENTOLIN HFA 108 (90 Base) MCG/ACT INHALATION AEROSOL SOLUTION 1-2 puffs every 4 hours if needed for cough/congestion VENTOLIN HFA 108 (90 Base) MCG/ACT INHALATION AEROSOL SOLUTION ALBUTEROL SULFATE Inactive REQUIP 2 MG ORAL TABLET Take one tablet at bedtime prn REQUIP 2 MG ORAL TABLET 589180 ROPINIROLE HCL Inactive SUPER B COMPLEX/VITAMIN C ORAL TABLET 1 qd SUPER B COMPLEX/VITAMIN C ORAL TABLET 52558748725 B COMPLEX-C Inactive TRUEDRAW LANCING DEVICE test blood sugar twice daily dx: 250.00 TRUEDRAW LANCING DEVICE LANCET DEVICES Inactive TRUETEST TEST IN VITRO STRIP test blood sugar twice daily. DX 250.0 TRUETEST TEST IN VITRO STRIP GLUCOSE BLOOD Inactive CYCLOBENZAPRINE HCL 10 MG ORAL TABLET 1 po TID PRN Muscle Spasm CYCLOBENZAPRINE HCL 10 MG ORAL TABLET 257363 CYCLOBENZAPRINE HCL Inactive DICLOFENAC SODIUM 50 MG ORAL TABLET DELAYED RELEASE 1 po BID PRN Pain DICLOFENAC SODIUM 50 MG ORAL TABLET DELAYED RELEASE 689156 DICLOFENAC SODIUM Inactive DICLOFENAC SODIUM 75 MG ORAL TABLET DELAYED RELEASE 1 po BID PRN Pain DICLOFENAC SODIUM 75 MG ORAL TABLET DELAYED RELEASE 041574 DICLOFENAC SODIUM Inactive NASONEX 50 MCG/ACT NASAL SUSPENSION 2 actuations in each nostril q day 07/15 NASONEX 50 MCG/ACT NASAL SUSPENSION 1860478 MOMETASONE FUROATE Inactive GUAIFENESIN ER 600 MG ORAL TABLET EXTENDED RELEASE 12 HOUR 1 twice a day as needed for congestion GUAIFENESIN ER 600 MG ORAL TABLET EXTENDED RELEASE 12 HOUR GUAIFENESIN Inactive AZITHROMYCIN 250 MG ORAL TABLET 2 po qd x 1, then 1 po qd x 4 AZITHROMYCIN 250 MG ORAL TABLET 894508 AZITHROMYCIN Inactive PROMETHAZINE-CODEINE 6.25-10 MG/5ML ORAL SYRUP 5ml po q6hr PRN Cough PROMETHAZINE-CODEINE 6.25-10 MG/5ML ORAL SYRUP 267219 PROMETHAZINE-CODEINE Inactive TRIAMCINOLONE ACETONIDE 0.1 % EXTERNAL OINTMENT Apply to affected areas TID for up to 2 weeks TRIAMCINOLONE ACETONIDE 0.1 % EXTERNAL OINTMENT 6102016 TRIAMCINOLONE ACETONIDE Inactive PREDNISONE 20 MG ORAL TABLET 2 tabs daily for 3 days, 1 tab daily for 3 days, 1/2 tab daily for 2 days PREDNISONE 20 MG ORAL TABLET 961313 PREDNISONE Inactive PREDNISONE 20 MG ORAL TABLET 2 tabs daily for 3 days, 1 tab daily for 3 days, 1/2 tab daily for 2 days PREDNISONE 20 MG ORAL TABLET 225803 PREDNISONE Inactive BACTRIM DS 800-160 MG ORAL TABLET 1 po BID x 7 days BACTRIM DS 800-160 MG ORAL TABLET 449237 SULFAMETHOXAZOLE-TRIMETHOPRIM Inactive ZITHROMAX 250 MG ORAL TABLET 2 po today, then 1 po q days 2-5 ZITHROMAX 250 MG ORAL TABLET 029685 AZITHROMYCIN Inactive PREDNISONE 20 MG ORAL TABLET 2 po qd x 5 days PREDNISONE 20 MG ORAL TABLET 050717 PREDNISONE Inactive Advance Directives Directive Description Start Date DISCUSSED WITH PATIENT -- NO DECISION MADE Immunizations Vaccine Administration Date Value Standard Description Seasonal influenza vaccine, injectable, containing preservative, for > 3 years old (Afluria, FluLaval, Fluzone, Fluvirin, Fluarix, Agriflu(>=18 yo)) Fluzone (>3 yrs.) [[id number]] Influenza, seasonal, injectable influenza immunization (Flu Vax) has been administered 02/22/2012 influenza virus vaccine, unspecified formulation Seasonal influenza vaccine, injectable, containing preservative, for > 3 years old (Afluria, FluLaval, Fluzone, Fluvirin, Fluarix, Agriflu(>=18 yo)) Fluzone (>3 yrs.) [[id number]] Influenza, seasonal, injectable Vital Signs Date Name [...] ... - Chemistry sodium, serum 141 mmol/L 665-216 1776/01/16 carbon dioxide, venous blood 28.3 mmol/L 21.0-32.0 [...] 6.7 % 4.3-6.0 cholesterol, serum 106 mg/dL 069-711 0477/01/16 triglyceride, serum, fasting 173 mg/dL 30-200 HDL [...] Magnesium - Chemistry sodium, serum 142 mmol/L 663-114 2695/07/16 carbon dioxide, venous blood 29.4 mmol/L 21.0-32.0 [...] Panel - Chemistry cholesterol, serum 170 mg/dL 140-085 8950/07/16 triglyceride, serum, fasting 266 mg/dL 30-200 HDL cholesterol, serum 42 mg/dL 32-60 LDL cholesterol, serum 75 mg/dL 0-130 Encounters Code Encounter Date Provider Facility CPT-91259 Level 4 Est. Patient 14:46:36 CDT Tu Landeros MD [facility] CPT-71161 Level 3 Est. Patient 10:28:05 CDT Tu Landeros MD [facility] CPT-86619 Level 3 Est. Patient 09:11:32 CDT Tu Landeros MD [facility] CPT-66344 Level 3 Est. Patient 10:13:19 HOSPICE NURSE Lesli Kellogg APRN [facility] CPT-16317 Level 4 Est. Patient 13:42:02 HOSPICE NURSE Tu Landeros MD [facility] CPT-49583 Level 3 Est. Patient 14:20:36 CDT Tu Landeros MD [facility] CPT-29747 Level 4 Est. Patient 14:28:34 CDT Tu Landeros MD [facility] CPT-51310 Level 3 Est. Patient 13:33:09 CDT Tu aLnderos MD [facility] CPT-81571 Level 4 Est. Patient 14:29:21 CDT Tu Landeros MD [facility] CPT-86154 Level 4 Est. Patient 09:08:17 HOSPICE NURSE Tu Landeros MD [facility] CPT-84590 Level 4 Est. Patient 14:40:19 CDT Tu Landeros MD [facility] CPT-89055 Level 4 Est. Patient 14:06:04 HOSPICE NURSE Tu Landeros MD [facility] CPT-97364 Level 3 Est. Patient 14:05:18 HOSPICE NURSE Tu Landeros MD [facility] CPT-68623 Level 3 Est. Patient 10:06:54 HOSPICE NURSE Miranda Farah APRN [facility] CPT-83986 Level 4 Est. Patient 13:50:18 HOSPICE NURSE Tu Landeros MD [facility] CPT-68898 Level 3 Est. Patient 10:30:04 CDT Tu Landeros MD [facility] CPT-49361 Level 4 Est. Patient 11:03:38 CDT Tu Landeros MD [facility] CPT-75362 Level 3 Est. Patient 10:20:44 CDT Fab Morales DO [facility] CPT-46703 Level 4 Est. Patient 14:38:57 CDT Tu Landeros MD [facility] CPT-35559 Level 4 Est. Patient 14:27:39 HOSPICE NURSE Tu Landeros MD [facility] CPT-20590 Level 4 Est. Patient 09:45:25 CDT Tu Landeros MD [facility] CPT-96127 Level 4 Est. Patient 09:05:20 HOSPICE NURSE Tu Landeros MD [facility] CPT-57150 Level 4 Est. Patient 14:09:06 CDT Tu Landeros MD [facility] CPT-90636 Level 3 Est. Patient 13:36:54 CDT Tu Landeros MD [facility] CPT-57970 Level 3 Est. Patient 08:59:14 CDT Tu Landeros MD [facility] CPT-78765 Level 3 Est. Patient 13:48:35 CDT Fab Morales DO [facility] CPT-39053 Level 4 Est. Patient 10:05:48 CDT Tu Landeros MD [facility] CPT-94115 Level 3 Est. Patient 13:38:42 CDT Marek BANKS [facility] CPT-84128 Level 5 Est. Patient 08:08:39 CDT Jerrica FRANCIS [facility] CPT-92116 Level 4 Est. Patient 14:23:38 CDT Tu Landeros MD [facility] CPT-20409 Level 3 Est. Patient 11:44:04 CDT Tu Landeros MD [facility] CPT-22165 Level 3 Est. Patient 11:03:20 HOSPICE NURSE Tu Landeros MD [facility] CPT-69555 Level 3 Est. Patient 11:03:14 HOSPICE NURSE Tu Landeros MD [facility] CPT-10903 Level 3 Est. Patient 12:42:49 CDT Tu Landeros MD [facility] CPT-79280 Level 3 Est. Patient 11:52:06 CDT Tu Landeros MD [facility] CPT-94229 Level 3 Est. Patient 13:58:11 CDT Tu Landeros MD [facility] CPT-39163 Level 3 Est. Patient 17:50:07 CDT Fab Morales DO [facility] CPT-77755 Level 3 Est. Patient 12:06:29 CDT Elvira Cervantes MD, PhD [facility] CPT-56852 Level 3 Est. Patient 15:50:32 CDT Tu Landeros MD [facility] CPT-04919 Level 4 Est. Patient 16:08:29 CDT Tu Landeros MD [facility] CPT-76312 Level 3 Est. Patient 16:04:19 CDT Tu Landeros MD [facility] CPT-06232 Level 3 Est. Patient 11:22:30 HOSPICE NURSE Tu Landeros MD [facility] CPT-01036 Level 4 Est. Patient 16:24:02 HOSPICE NURSE Tu Landeros MD [facility] CPT-05177 Level 3 Est. Patient 17:21:23 HOSPICE NURSE Tu Landeros MD [facility] Procedures Code Procedure Name Date Entry Date Standard Description CPT-G0439 Subsequent Annual Wellness Exam 14:46:36 CDT CPT-18115 Shoulder, right, comp min 2V - XRAY USE ONLY 13:50:22 CDT CPT-G0009 Administration of Pneumococcal Vaccine 15:08:26 CDT CPT-85287 Prevnar 13 Intramuscular Suspension 15:08:26 CDT 10/08 CPT-G0439 Subsequent Annual Wellness Exam 14:29:22 CDT CPT-04325 Venipuncture Draw Fee 13:15:35 CDT CPT-68144 Magnesium - LAB USE ONLY 11:14:20 HOSPICE NURSE CPT-24859 Lipid - LAB USE ONLY 11:14:20 HOSPICE NURSE CPT-03463 HGBA1C - LAB USE ONLY 11:14:20 HOSPICE NURSE CPT-24405 CMP - LAB USE ONLY 11:14:19 HOSPICE NURSE CPT-71112 CBC - LAB USE ONLY 11:14:19 HOSPICE NURSE CPT-11840 Venipuncture Draw Fee 11:14:18 HOSPICE NURSE CPT-78579 First Vx - Ix admin for Medicare patients 16:46:52 CDT CPT-46334 Fluzone Preservative Free Intramuscular Suspension 16:46 :51 CDT CPT-33429 CBC - LAB USE ONLY 17:14:46 CDT CPT-05029 HGBA1C - LAB USE ONLY 17:14:46 CDT CPT-42070 Venipuncture Draw Fee 17:14:46 CDT CPT-G0438 Initial Annual Wellness Exam 14:13:04 CDT CPT-53655 Breathing Tx 10:06:54 HOSPICE NURSE CPT-17186 Postop F/U Visit 10:02:45 CDT CPT-LR Lesion Removal 09:02:56 CDT CPT-JTINJ Asp/Joint Injection 15:51:27 HOSPICE NURSE CPT-OV Office Visit 15:52:02 HOSPICE NURSE CPT-OV Office Visit 15:45:11 CDT CPT-000 Give Zostavax 14:09:06 CDT CPT-77485 Administration single or combination vaccine inc oral 15 :19:04 CDT CPT-06030 Zoster Vaccine (Zostavax) 15:19:04 CDT CPT-19406 Administration single or combination vaccine inc oral 20 :51:03 CDT CPT-72447 Influenza split virus > age 3 20:51:03 CDT CPT-00308 No Charge Offi Visit 14:52:03 CDT CPT-OV Office Visit 14:57:43 CDT CPT-OV Office Visit 15:22:32 CDT CPT-32578 Administration single or combination vaccine inc oral 11 :33:15 CDT CPT-69735 Influenza split virus > age 3 11:33:15 CDT
--- OUTSIDE RECORDS SUMMARY | 2018-04-25 12:21 | XMS REPORT | Clinical Summary ---
Author Author Admin, SACHI Organization Assignment Editor Address Unknown Phone Unavailable Allergies, Adverse Reactions, [...] BENIGN PAROXYSMAL POSITIONAL VERTIGO 386.11 Resolved Tu Landeors MD Benign paroxysmal positional vertigo HYPERTENSION 401.1 [...] magnesium metabolism URI 465.9 Inactive Lesli Kellogg [employer] Acute upper respiratory infections of unspecified site [...] for up to 2 weeks TRIAMCINOLONE ACETONIDE 21222524261 Active Tu Landeros MD Active INDOMETHACIN 50 MG ORAL CAPSULE 1 po TID PRN Pain INDOMETHACIN 94246798734 Active Tu Landeros MD Active PROMETHAZINE-CODEINE 6.25-10 MG/5ML ORAL SYRUP 5ml po q6hr PRN Cough PROMETHAZINE-CODEINE 66003228539 No Longer Active Tu Landeros MD Active AZITHROMYCIN 250 MG ORAL TABLET 2 po qd x 1, then 1 po qd x 4 AZITHROMYCIN 73275834444 No Longer Active Tu Landeros MD Active GUAIFENESIN ER 600 MG ORAL TABLET EXTENDED RELEASE 12 HOUR 1 twice a day as needed for congestion GUAIFENESIN 35507226655 No Longer Active Tu Landeros MD Active PREDNISONE 20 MG ORAL TABLET 2 po qd x 5 days PREDNISONE 25277644779 No Longer Active Tu Landeros MD Active FLUTICASONE PROPIONATE 50 MCG/ACT NASAL SUSPENSION 2 sprays/nostril qd PRN Congestion/Allergies FLUTICASONE PROPIONATE 20606703344 Active Tu Landeros MD Active NASONEX 50 MCG/ACT NASAL SUSPENSION 2 actuations in each nostril q day 07/15 MOMETASONE FUROATE 68373143688 No Longer Active Tu Landeros MD Active MAGNESIUM OXIDE 400 MG ORAL TABLET 1 po BID MAGNESIUM OXIDE 88761877256 Active Tu Landeros MD Active SIMVASTATIN 20 MG ORAL TABLET 0.5 po qHS SIMVASTATIN 37654123014 Active Tu Landeros MD Active DICLOFENAC SODIUM 75 MG ORAL TABLET DELAYED RELEASE 1 po BID PRN Pain DICLOFENAC SODIUM 86727177774 No Longer Active Tu Landeros MD Active GABAPENTIN 100 MG ORAL CAPSULE 1 po TID GABAPENTIN 64216180932 Active Tu Landeros MD Active DICLOFENAC SODIUM 50 MG ORAL TABLET DELAYED RELEASE 1 po BID PRN Pain DICLOFENAC SODIUM 58044043495 No Longer Active Tu Landeros MD Active CYCLOBENZAPRINE HCL 10 MG ORAL TABLET 1 po TID PRN Muscle Spasm CYCLOBENZAPRINE HCL 30045660685 No Longer Active Tu Landeros MD Active INVOKANA 100 MG ORAL TABLET 1 po qd CANAGLIFLOZIN 89592100010 Active José Luis Becerra MD Active GLIPIZIDE 5 MG ORAL TABLET 1 po qd GLIPIZIDE 41889286196 No Longer Active Tu Landeros MD Active VENLAFAXINE HCL 75 MG ORAL TABLET 1 po BID VENLAFAXINE HCL 60778446110 Active Tu Landeros MD Active GLIMEPIRIDE 1 MG ORAL TABLET 1 po qd GLIMEPIRIDE 36031875797 No Longer Active Tu Landeros MD Active TRUE METRIX BLOOD GLUCOSE TEST IN VITRO STRIP Test blood sugar BID Dx: E11.9 GLUCOSE BLOOD 26604885045 Active Tu Landeros MD Active TRUE METRIX AIR GLUCOSE METER w/Device KIT Test blood glucose BID Dx: E11.9 BLOOD GLUCOSE MONITORING SUPPL 35910103708 Active Tu Landeros MD Active TRUETEST TEST IN VITRO STRIP test blood sugar twice daily. DX 250.0 GLUCOSE BLOOD 23401563421 No Longer Active Mirna Stanley LPN Active TRUEDRAW LANCING DEVICE test blood sugar twice daily dx: 250.00 LANCET DEVICES 46126090383 No Longer Active Mirna Stanley LPN Active ENALAPRIL MALEATE 20 MG ORAL TABLET 2 po qd ENALAPRIL MALEATE 81941951596 Active Tu Landeros MD Active SUPER B COMPLEX/VITAMIN C ORAL TABLET 1 qd B COMPLEX- C 58657080437 No Longer Active Tu Landeros MD Active ASPIRIN EC 81 MG ORAL TABLET DELAYED RELEASE 1 po qd ASPIRIN 61045758938 Active Tu Landeros MD Active GLUCOSAMINE 500 MG TABS 2 po qd GLUCOSAMINE Active Tu Landeros MD Active FISH OIL 1000 MG ORAL CAPSULE 1 po qd OMEGA-3 FATTY ACIDS 98702544109 Active Tu Landeros MD Active METFORMIN HCL 1000 MG ORAL TABLET 1 po BID METFORMIN HCL 70855734459 Active Tu Landeros MD Active KLOR-CON 10 10 MEQ ORAL TABLET EXTENDED RELEASE 2 po qd POTASSIUM CHLORIDE 02484243491 Active Tu Landeros MD Active FUROSEMIDE 40 MG ORAL TABLET 1 po qd FUROSEMIDE 52336188556 Active Tu Landeros MD Active REQUIP 2 MG ORAL TABLET 1 po qHS PRN Restless legs ROPINIROLE HCL 04913530045 Active Tu Landeros MD Active REQUIP 2 MG ORAL TABLET Take one tablet at bedtime prn ROPINIROLE HCL 54007503714 No Longer Active Tu Landeros MD Active VENTOLIN HFA 108 (90 Base) MCG/ACT INHALATION AEROSOL SOLUTION 1-2 puffs every 4 hours if needed for cough/congestion ALBUTEROL SULFATE 83982534371 No Longer Active Ambika Aden APRN Active ZITHROMAX 250 MG ORAL TABLET 2 po today, then 1 po q days 2-5 AZITHROMYCIN 10201598577 No Longer Active Miranda Farah APRN Active FLONASE 50 MCG/ACT NASAL SUSPENSION 1 spray each nostril twice daily until bottle empty FLUTICASONE PROPIONATE 96618750245 No Longer Active Tu Landeros MD Active COLACE 100 MG ORAL CAPSULE 1 po BID PRN Constipation DOCUSATE SODIUM 11053582644 Active Tu Landeros MD Active TRUERESULT BLOOD GLUCOSE w/Device KIT test blood sugar twice daily dx 250.00 BLOOD GLUCOSE MONITORING SUPPL 98307397468 No Longer Active Tu Landeros MD Active TRUEDRAW LANCING DEVICE Test twice a day dx 250.0 LANCET DEVICES 95932556383 No Longer Active Tu Landeros MD Active PREDNISONE 20 MG ORAL TABLET 2 tablets once daily for 2 days, then 1 tablet once daily for 2 days PREDNISONE 87695384922 No Longer Active Tu Landeros MD Active DICLOFENAC SODIUM 50 MG ORAL TABLET DELAYED RELEASE 1 tablet by mouth three times a day as needed DICLOFENAC SODIUM 77503133274 No Longer Active Fab Morales DO Active EMBRACE BLOOD GLUCOSE TEST IN VITRO STRIP test blood sugar twice daily DX 250.0 GLUCOSE BLOOD 57807395014 No Longer Active Tu Landeros MD Active TRUETEST TEST IN VITRO STRIP test blood sugar three times daily dx: 250.00 GLUCOSE BLOOD 95715184744 No Longer Active Suze VOGEL Active TRUERESULT BLOOD GLUCOSE w/Device KIT use to test blood sugar tid dx: 250.00 BLOOD GLUCOSE MONITORING SUPPL 85438967247 No Longer Active Suzebianca VOGEL Active ALIGN 4 MG ORAL CAPSULE 1 tid PROBIOTIC PRODUCT 62144551581 No Longer Active Shaun Sy MD Active CIPRO 500 MG ORAL TABLET 1 bid x 14 days start 09-28-13 CIPROFLOXACIN HCL 14380552650 No Longer Active Shaun Sy MD Active TRAMADOL HCL 50 MG ORAL TABLET 1-2 tablets every 6 hours as needed for pain TRAMADOL HCL 27313852061 Active Tu Landeros MD Active HYDROCODONE-ACETAMINOPHEN 5-325 MG ORAL TABLET 1 tab by mouth every 6 hours as needed for pain HYDROCODONE-ACETAMINOPHEN 59170851402 No Longer Active Tu Landeros MD Active OMEPRAZOLE 20 MG ORAL CAPSULE DELAYED RELEASE 1 po q a.m. OMEPRAZOLE 63853144739 Active Tu Landeros MD Active GABAPENTIN 100 MG ORAL CAPSULE 1 po bid GABAPENTIN 35426676523 No Longer Active Tu Landeros MD Active B-12 100 MCG ORAL TABLET Take one by mouth daily CYANOCOBALAMIN 28616912390 No Longer Active Tu Landeros MD Active BACTRIM DS 800-160 MG ORAL TABLET 1 bid x 14 day start 09-28-13 SULFAMETHOXAZOLE-TRIMETHOPRIM 70236408985 No Longer Active uT Landeros MD Active CARVEDILOL 12.5 MG ORAL TABLET 1 po BID CARVEDILOL 66115825534 Active Tu Landeros MD Active TRILIPIX 135 MG ORAL CAPSULE DELAYED RELEASE 1 q hs CHOLINE FENOFIBRATE 47270470259 Active Tu Landeros MD Active FENOFIBRATE 145 MG ORAL TABLET 1 po qd FENOFIBRATE 44423416891 No Longer Active JASPREET Perez Active OMEPRAZOLE 20 MG ORAL TABLET DELAYED RELEASE 1 PO 30 MIN BEFORE 1ST MEAL 2010 OMEPRAZOLE 58611941097 No Longer Active JASPREET Perez Active SIMVASTATIN 40 MG ORAL TABLET Take one by mouth daily SIMVASTATIN 76612318741 No Longer Active [place], RMA Active VENLAFAXINE HCL 75 MG ORAL TABLET 1 po BID VENLAFAXINE HCL 18013942513 No Longer Active JASPREET Perez Active CIPRO 500 MG ORAL TABLET 1 tablet by mouth twice daily CIPROFLOXACIN HCL 10470428788 No Longer Active Tu Landeros MD Active VENLAFAXINE HCL 37.5 MG ORAL TABLET 1 po BID VENLAFAXINE HCL 70657715107 No Longer Active Suze Nicole NURYSA Active LAMISIL 250 MG ORAL TABLET 1 po qd TERBINAFINE HCL 95793196689 No Longer Active Tu Landeros MD Active LORTAB 5-500 MG ORAL TABLET 1/2 to 1 tablet by mouth every 4 hours as needed for pain HYDROCODONE-ACETAMINOPHEN 35327800600 No Longer Active Tu Landeros MD Active HYDROCODONE-ACETAMINOPHEN 5-500 MG ORAL TABLET take one po Q 4-6 hours prn HYDROCODONE-ACETAMINOPHEN 12109065297 No Longer Active Tu Landeros MD Active BACTRIM DS 800-160 MG ORAL TABLET 1 po BID x 7 days SULFAMETHOXAZOLE-TRIMETHOPRIM 55157290247 No Longer Active Tu Landeros MD Active VENLAFAXINE HCL 75 MG ORAL TABLET 1 po BID VENLAFAXINE HCL 52556816668 No Longer Active Elvira Cervantes MD PhD Active TRAMADOL HCL 50 MG ORAL TABLET 1 tablets every 6 hours as needed for pain TRAMADOL HCL 33869524800 No Longer Active Tu Landeros MD Active ACCU-CHEK FASTCLIX LANCETS Use to check bloodsugar three times daily as needed LANCETS 85208504449 No Longer Active Tu Landeros MD Active ACCU-CHEK KEYONA PLUS IN VITRO STRIP Use for testing bloodsugars three times daily as needed GLUCOSE BLOOD 28866414156 No Longer Active Tu Landeros MD Active ACCU-CHEK KEYONA PLUS w/Device KIT Use for testing bloodsugars three times daily as needed BLOOD GLUCOSE MONITORING SUPPL 46643063751 No Longer Active Tu Landeros MD Active SPIRONOLACTONE 25 MG ORAL TABLET 0.5 tablet by mouth daily 09/09 SPIRONOLACTONE 87247302478 No Longer Active Tu Landeros MD Active ALPRAZOLAM 0.5 MG ORAL TABLET 1 tab every 6hrs as needed ALPRAZOLAM 23104838351 No Longer Active Tu Landeros MD Active AUGMENTIN 875-125 MG ORAL TABLET 1 tab by mouth twice daily with food AMOXICILLIN-POT CLAVULANATE 65332910292 No Longer Active Tu Landeros MD Active PREDNISONE 20 MG ORAL TABLET 2 tabs daily for 3 days, 1 tab daily for 3 days, 1/2 tab daily for 2 days PREDNISONE 77494785845 No Longer Active Tu Landeros MD Active XANAX 0.5 MG ORAL TABLET 1 tablet every 6 hrs prn ALPRAZOLAM 92691275093 No Longer Active Tu Landeros MD Active PREDNISONE 20 MG ORAL TABLET 2 tabs daily for 3 days, 1 tab daily for 3 days, 1/2 tab daily for 2 days PREDNISONE 37183696936 No Longer Active Tu Landeros MD Active TRIAMCINOLONE ACETONIDE 0.1 % EXTERNAL OINTMENT Apply to affected areas TID for up to 2 weeks TRIAMCINOLONE ACETONIDE 14184958784 No Longer Active Tu Landeros MD Active LORTAB 5-500 MG ORAL TABLET 1/2 to 1 tablet by mouth every 4 hours as needed for pain HYDROCODONE-ACETAMINOPHEN 02807837938 No Longer Active Tu Landeros MD Active MULTIVITAMINS TABS Take one by mouth daily MULTIPLE VITAMIN 10438404344 No Longer Active Tu Landeros MD Active MELATONIN 5 MG ORAL TABLET Take one by mouth daily MELATONIN 86560498951 No Longer Active Tu Landeros MD Active SOMA 350 MG ORAL TABLET 1 po q 6 hours prn spasm CARISOPRODOL 07727775874 No Longer Active Tu Landeros MD Active MECLIZINE HCL 25 MG ORAL TABLET CHEWABLE 1 four times a day as needed for dizziness MECLIZINE HCL 70187132042 No Longer Active Fab Morales DO Active ANGEL BREEZE 2 TEST IN VITRO DISK test tid prn GLUCOSE BLOOD 57328072981 No Longer Active Negra Scott RN Active REGLAN 10 MG ORAL TABLET 1 po TID PRN Nausea METOCLOPRAMIDE HCL 02611512529 No Longer Active Tu Landeros MD Active METFORMIN HCL 500 MG ORAL TABLET 1 PO BID METFORMIN HCL 90642424784 No Longer Active Tu Landeros MD Active AMBIEN 10 MG ORAL TABLET 1 tab by mouth at bedtime as needed for sleep 06/10 ZOLPIDEM TARTRATE 44688710963 No Longer Active Tu Landeros MD Active FLUOXETINE HCL 40 MG ORAL CAPSULE 1 po q day FLUOXETINE HCL 26558332916 No Longer Active Mayra Terry Active TRILIPIX 135 MG ORAL CAPSULE DELAYED RELEASE 1 po qd CHOLINE FENOFIBRATE 82688093963 No Longer Active Tu Landeros MD Active AMBIEN 10 MG ORAL TABLET 1 tab by mouth at bedtime as needed for sleep 06/10 AMBIEN 10 MG ORAL TABLET 049901 ZOLPIDEM TARTRATE Inactive METFORMIN HCL 500 MG ORAL TABLET 1 PO BID METFORMIN HCL 500 MG ORAL TABLET 027504 METFORMIN HCL Inactive REGLAN 10 MG ORAL TABLET 1 po TID PRN Nausea REGLAN 10 MG ORAL TABLET 641354 METOCLOPRAMIDE HCL Inactive MECLIZINE HCL 25 MG ORAL TABLET CHEWABLE 1 four times a day as needed for dizziness MECLIZINE HCL 25 MG ORAL TABLET CHEWABLE 210909 MECLIZINE HCL Inactive SOMA 350 MG ORAL TABLET 1 po q 6 hours prn spasm SOMA 350 MG ORAL TABLET 309272 CARISOPRODOL Inactive MELATONIN 5 MG ORAL TABLET Take one by mouth daily MELATONIN 5 MG ORAL TABLET 649717 MELATONIN Inactive MULTIVITAMINS TABS Take one by mouth daily MULTIVITAMINS TABS MULTIPLE VITAMIN Inactive LORTAB 5-500 MG ORAL TABLET 1/2 to 1 tablet by mouth every 4 hours as needed for pain LORTAB 5-500 MG ORAL TABLET HYDROCODONE- ACETAMINOPHEN Inactive XANAX 0.5 MG ORAL TABLET 1 tablet every 6 hrs prn XANAX 0.5 MG ORAL TABLET 882274 ALPRAZOLAM Inactive AUGMENTIN 875-125 MG ORAL TABLET 1 tab by mouth twice daily with food AUGMENTIN 875-125 MG ORAL TABLET 490380 AMOXICILLIN-POT CLAVULANATE Inactive ALPRAZOLAM 0.5 MG ORAL TABLET 1 tab every 6hrs as needed ALPRAZOLAM 0.5 MG ORAL TABLET 248792 ALPRAZOLAM Inactive SPIRONOLACTONE 25 MG ORAL TABLET 0.5 tablet by mouth daily 09/09 SPIRONOLACTONE 25 MG ORAL TABLET 853036 SPIRONOLACTONE Inactive ACCU-CHEK KEYONA PLUS w/Device KIT [...] times daily as needed ACCU-CHEK FASTCLIX LANCETS 41021787098 LANCETS Inactive TRAMADOL HCL 50 MG ORAL TABLET 1 tablets every 6 hours as needed for pain TRAMADOL HCL 50 MG ORAL TABLET 052062 TRAMADOL HCL Inactive VENLAFAXINE HCL 75 MG ORAL TABLET 1 po BID VENLAFAXINE HCL 75 MG ORAL TABLET 825087 VENLAFAXINE HCL Inactive HYDROCODONE-ACETAMINOPHEN 5-500 MG ORAL TABLET take one po Q 4-6 hours prn HYDROCODONE-ACETAMINOPHEN 5-500 MG ORAL TABLET HYDROCODONE-ACETAMINOPHEN Inactive LORTAB 5-500 MG ORAL TABLET 1/2 to 1 tablet by mouth every 4 hours as needed for pain LORTAB 5-500 MG ORAL TABLET HYDROCODONE- ACETAMINOPHEN Inactive LAMISIL 250 MG ORAL TABLET 1 po qd LAMISIL 250 MG ORAL TABLET 133354 TERBINAFINE HCL Inactive VENLAFAXINE HCL 37.5 MG ORAL TABLET 1 po BID VENLAFAXINE HCL 37.5 MG ORAL TABLET 654186 VENLAFAXINE HCL Inactive CIPRO 500 MG ORAL TABLET 1 tablet by mouth twice daily CIPRO 500 MG ORAL TABLET 877706 CIPROFLOXACIN HCL Inactive VENLAFAXINE HCL 75 MG ORAL TABLET 1 po BID VENLAFAXINE HCL 75 MG ORAL TABLET 724252 VENLAFAXINE HCL Inactive SIMVASTATIN 40 MG ORAL TABLET Take one by mouth daily SIMVASTATIN 40 MG ORAL TABLET 689594 SIMVASTATIN Inactive OMEPRAZOLE 20 MG ORAL TABLET DELAYED RELEASE 1 PO 30 MIN BEFORE 1ST MEAL 2010 OMEPRAZOLE 20 MG ORAL TABLET DELAYED RELEASE 045318 OMEPRAZOLE Inactive FENOFIBRATE 145 MG ORAL TABLET 1 po qd FENOFIBRATE 145 MG ORAL TABLET 697426 FENOFIBRATE Inactive BACTRIM DS 800-160 MG ORAL TABLET 1 bid x 14 day start 09-28-13 BACTRIM DS 800-160 MG ORAL TABLET 806961 SULFAMETHOXAZOLE- TRIMETHOPRIM Inactive B-12 100 MCG ORAL TABLET Take one by mouth daily B-12 100 MCG ORAL TABLET CYANOCOBALAMIN Inactive GABAPENTIN 100 MG ORAL CAPSULE 1 po bid GABAPENTIN 100 MG ORAL CAPSULE 989310 GABAPENTIN Inactive HYDROCODONE-ACETAMINOPHEN 5-325 MG ORAL TABLET 1 tab by mouth every 6 hours as needed for pain HYDROCODONE-ACETAMINOPHEN 5-325 MG ORAL TABLET 248398 HYDROCODONE-ACETAMINOPHEN Inactive CIPRO 500 MG ORAL TABLET 1 bid x 14 days start 09-28-13 CIPRO 500 MG ORAL TABLET 515788 CIPROFLOXACIN HCL Inactive ALIGN 4 MG ORAL [...] SODIUM 50 MG ORAL TABLET DELAYED RELEASE 432835 DICLOFENAC SODIUM Inactive PREDNISONE 20 MG ORAL TABLET 2 tablets once daily for 2 days, then 1 tablet once daily for 2 days PREDNISONE 20 MG ORAL TABLET 637624 PREDNISONE Inactive TRUEDRAW LANCING DEVICE Test twice a day dx 250.0 TRUEDRAW LANCING DEVICE LANCET DEVICES Inactive TRUERESULT BLOOD GLUCOSE w/Device KIT test blood sugar twice daily dx 250.00 TRUERESULT BLOOD GLUCOSE w/Device KIT BLOOD GLUCOSE MONITORING SUPPL Inactive FLONASE 50 MCG/ACT NASAL SUSPENSION 1 spray each nostril twice daily until bottle empty FLONASE 50 MCG/ACT NASAL SUSPENSION 7316711 FLUTICASONE PROPIONATE Inactive VENTOLIN HFA 108 (90 Base) MCG/ACT INHALATION AEROSOL SOLUTION 1-2 puffs every 4 hours if needed for cough/congestion VENTOLIN HFA 108 (90 Base) MCG/ACT INHALATION AEROSOL SOLUTION ALBUTEROL SULFATE Inactive REQUIP 2 MG ORAL TABLET Take one tablet at bedtime prn REQUIP 2 MG ORAL TABLET 691737 ROPINIROLE HCL Inactive SUPER B COMPLEX/VITAMIN C ORAL TABLET 1 qd SUPER B COMPLEX/VITAMIN C ORAL TABLET 29342337504 B COMPLEX-C Inactive TRUEDRAW LANCING DEVICE test blood sugar twice daily dx: 250.00 TRUEDRAW LANCING DEVICE LANCET DEVICES Inactive TRUETEST TEST IN VITRO STRIP test blood sugar twice daily. DX 250.0 TRUETEST TEST IN VITRO STRIP GLUCOSE BLOOD Inactive CYCLOBENZAPRINE HCL 10 MG ORAL TABLET 1 po TID PRN Muscle Spasm CYCLOBENZAPRINE HCL 10 MG ORAL TABLET 678928 CYCLOBENZAPRINE HCL Inactive DICLOFENAC SODIUM 50 MG ORAL TABLET DELAYED RELEASE 1 po BID PRN Pain DICLOFENAC SODIUM 50 MG ORAL TABLET DELAYED RELEASE 379241 DICLOFENAC SODIUM Inactive DICLOFENAC SODIUM 75 MG ORAL TABLET DELAYED RELEASE 1 po BID PRN Pain DICLOFENAC SODIUM 75 MG ORAL TABLET DELAYED RELEASE 084078 DICLOFENAC SODIUM Inactive NASONEX 50 MCG/ACT NASAL SUSPENSION 2 actuations in each nostril q day 07/15 NASONEX 50 MCG/ACT NASAL SUSPENSION 1116606 MOMETASONE FUROATE Inactive GUAIFENESIN ER 600 MG ORAL TABLET EXTENDED RELEASE 12 HOUR 1 twice a day as needed for congestion GUAIFENESIN ER 600 MG ORAL TABLET EXTENDED RELEASE 12 HOUR GUAIFENESIN Inactive AZITHROMYCIN 250 MG ORAL TABLET 2 po qd x 1, then 1 po qd x 4 AZITHROMYCIN 250 MG ORAL TABLET 231869 AZITHROMYCIN Inactive PROMETHAZINE-CODEINE 6.25-10 MG/5ML ORAL SYRUP 5ml po q6hr PRN Cough PROMETHAZINE-CODEINE 6.25-10 MG/5ML ORAL SYRUP 127378 PROMETHAZINE-CODEINE Inactive TRIAMCINOLONE ACETONIDE 0.1 % EXTERNAL OINTMENT Apply to affected areas TID for up to 2 weeks TRIAMCINOLONE ACETONIDE 0.1 % EXTERNAL OINTMENT 5192263 TRIAMCINOLONE ACETONIDE Inactive PREDNISONE 20 MG ORAL TABLET 2 tabs daily for 3 days, 1 tab daily for 3 days, 1/2 tab daily for 2 days PREDNISONE 20 MG ORAL TABLET 716781 PREDNISONE Inactive PREDNISONE 20 MG ORAL TABLET 2 tabs daily for 3 days, 1 tab daily for 3 days, 1/2 tab daily for 2 days PREDNISONE 20 MG ORAL TABLET 227821 PREDNISONE Inactive BACTRIM DS 800-160 MG ORAL TABLET 1 po BID x 7 days BACTRIM DS 800-160 MG ORAL TABLET 475355 SULFAMETHOXAZOLE-TRIMETHOPRIM Inactive ZITHROMAX 250 MG ORAL TABLET 2 po today, then 1 po q days 2-5 ZITHROMAX 250 MG ORAL TABLET 087583 AZITHROMYCIN Inactive PREDNISONE 20 MG ORAL TABLET 2 po qd x 5 days PREDNISONE 20 MG ORAL TABLET 876453 PREDNISONE Inactive Advance Directives Directive Description Start Date DISCUSSED WITH PATIENT -- NO DECISION MADE Immunizations Vaccine Administration Date Value Standard Description Seasonal influenza vaccine, injectable, containing preservative, for > 3 years old (Afluria, FluLaval, Fluzone, Fluvirin, Fluarix, Agriflu(>=18 yo)) Fluzone (>3 yrs.) [[id number]] Influenza, seasonal, injectable influenza immunization (Flu Vax) has been administered 02/22/2012 influenza virus vaccine, unspecified formulation Seasonal influenza vaccine, injectable, containing preservative, for > 3 years old (Afluria, FluLaval, Fluzone, Fluvirin, Fluarix, Agriflu(>=18 yo)) Fluzone (>3 yrs.) [[id number]] Influenza, seasonal, injectable Vital Signs Date Name [...] ... - Chemistry sodium, serum 141 mmol/L 096-904 9400/01/16 carbon dioxide, venous blood 28.3 mmol/L 21.0-32.0 [...] 6.7 % 4.3-6.0 cholesterol, serum 106 mg/dL 317-710 2769/01/16 triglyceride, serum, fasting 173 mg/dL 30-200 HDL [...] Magnesium - Chemistry sodium, serum 142 mmol/L 093-615 0489/07/16 carbon dioxide, venous blood 29.4 mmol/L 21.0-32.0 [...] Panel - Chemistry cholesterol, serum 170 mg/dL 192-489 8042/07/16 triglyceride, serum, fasting 266 mg/dL 30-200 HDL cholesterol, serum 42 mg/dL 32-60 LDL cholesterol, serum 75 mg/dL 0-130 Encounters Code Encounter Date Provider Facility CPT-93433 Level 4 Est. Patient 14:46:36 CDT Tu Landeros MD [facility] CPT-70308 Level 3 Est. Patient 10:28:05 CDT Tu Landeros MD [facility] CPT-41438 Level 3 Est. Patient 09:11:32 CDT Tu Landeros MD [facility] CPT-15691 Level 3 Est. Patient 10:13:19 REFERRAL RN Lesli Kellogg APRN [facility] CPT-27779 Level 4 Est. Patient 13:42:02 REFERRAL RN Tu Landeros MD [facility] CPT-91987 Level 3 Est. Patient 14:20:36 CDT Tu Landeros MD [facility] CPT-03933 Level 4 Est. Patient 14:28:34 CDT Tu Landeros MD [facility] CPT-93905 Level 3 Est. Patient 13:33:09 CDT Tu Landeros MD [facility] CPT-59364 Level 4 Est. Patient 14:29:21 CDT Tu Landeros MD [facility] CPT-01886 Level 4 Est. Patient 09:08:17 REFERRAL RN Tu Landeros MD [facility] CPT-58277 Level 4 Est. Patient 14:40:19 CDT Tu Landeros MD [facility] CPT-39873 Level 4 Est. Patient 14:06:04 REFERRAL RN Tu Landeros MD [facility] CPT-57079 Level 3 Est. Patient 14:05:18 REFERRAL RN Tu Landeros MD [facility] CPT-31526 Level 3 Est. Patient 10:06:54 REFERRAL RN Miranda Farah APRN [facility] CPT-71401 Level 4 Est. Patient 13:50:18 REFERRAL RN Tu Landeros MD [facility] CPT-51972 Level 3 Est. Patient 10:30:04 CDT Tu Landeros MD [facility] CPT-34790 Level 4 Est. Patient 11:03:38 CDT Tu Landeros MD [facility] CPT-02552 Level 3 Est. Patient 10:20:44 CDT Fab Morales DO [facility] CPT-70573 Level 4 Est. Patient 14:38:57 CDT Tu Landeros MD [facility] CPT-23899 Level 4 Est. Patient 14:27:39 REFERRAL RN Tu Landeros MD [facility] CPT-85479 Level 4 Est. Patient 09:45:25 CDT Tu Landeros MD [facility] CPT-79545 Level 4 Est. Patient 09:05:20 REFERRAL RN Tu Landeros MD [facility] CPT-05155 Level 4 Est. Patient 14:09:06 CDT Tu Landeros MD [facility] CPT-97796 Level 3 Est. Patient 13:36:54 CDT Tu Landeros MD [facility] CPT-19750 Level 3 Est. Patient 08:59:14 CDT Tu Landeros MD [facility] CPT-79265 Level 3 Est. Patient 13:48:35 CDT Fab Morales DO [facility] CPT-83509 Level 4 Est. Patient 10:05:48 CDT Tu Landeros MD [facility] CPT-05447 Level 3 Est. Patient 13:38:42 CDT Marek BANKS [facility] CPT-28388 Level 5 Est. Patient 08:08:39 CDT Jerrica FRANCIS [facility] CPT-42084 Level 4 Est. Patient 14:23:38 CDT Tu Landeros MD [facility] CPT-14822 Level 3 Est. Patient 11:44:04 CDT Tu Landeros MD [facility] CPT-79281 Level 3 Est. Patient 11:03:20 REFERRAL RN Tu Landeros MD [facility] CPT-28612 Level 3 Est. Patient 11:03:14 REFERRAL RN Tu Landeros MD [facility] CPT-60142 Level 3 Est. Patient 12:42:49 CDT Tu Landeros MD [facility] CPT-46963 Level 3 Est. Patient 11:52:06 CDT Tu Landeros MD [facility] CPT-95480 Level 3 Est. Patient 13:58:11 CDT Tu Landeros MD [facility] CPT-73898 Level 3 Est. Patient 17:50:07 CDT Fab Morales DO [facility] CPT-10096 Level 3 Est. Patient 12:06:29 CDT Elvira Cervantes MD, PhD [facility] CPT-10304 Level 3 Est. Patient 15:50:32 CDT Tu Landeros MD [facility] CPT-54332 Level 4 Est. Patient 16:08:29 CDT Tu Landeros MD [facility] CPT-48639 Level 3 Est. Patient 16:04:19 CDT Tu Landeros MD [facility] CPT-45216 Level 3 Est. Patient 11:22:30 REFERRAL RN Tu Landeros MD [facility] CPT-13157 Level 4 Est. Patient 16:24:02 REFERRAL RN Tu Landeros MD [facility] CPT-71869 Level 3 Est. Patient 17:21:23 REFERRAL RN Tu Landeros MD [facility] Procedures Code Procedure Name Date Entry Date Standard Description CPT-G0439 Subsequent Annual Wellness Exam 14:46:36 CDT CPT-00327 Shoulder, right, comp min 2V - XRAY USE ONLY 13:50:22 CDT CPT-G0009 Administration of Pneumococcal Vaccine 15:08:26 CDT CPT-39507 Prevnar 13 Intramuscular Suspension 15:08:26 CDT 10/08 CPT-G0439 Subsequent Annual Wellness Exam 14:29:22 CDT CPT-51328 Venipuncture Draw Fee 13:15:35 CDT CPT-11856 Magnesium - LAB USE ONLY 11:14:20 REFERRAL RN CPT-64716 Lipid - LAB USE ONLY 11:14:20 REFERRAL RN CPT-16971 HGBA1C - LAB USE ONLY 11:14:20 REFERRAL RN CPT-02706 CMP - LAB USE ONLY 11:14:19 REFERRAL RN CPT-00653 CBC - LAB USE ONLY 11:14:19 REFERRAL RN CPT-21759 Venipuncture Draw Fee 11:14:18 REFERRAL RN CPT-65628 First Vx - Ix admin for Medicare patients 16:46:52 CDT CPT-39202 Fluzone Preservative Free Intramuscular Suspension 16:46 :51 CDT CPT-92482 CBC - LAB USE ONLY 17:14:46 CDT CPT-11171 HGBA1C - LAB USE ONLY 17:14:46 CDT CPT-09977 Venipuncture Draw Fee 17:14:46 CDT CPT-G0438 Initial Annual Wellness Exam 14:13:04 CDT CPT-07095 Breathing Tx 10:06:54 REFERRAL RN CPT-71176 Postop F/U Visit 10:02:45 CDT CPT-LR Lesion Removal 09:02:56 CDT CPT-JTINJ Asp/Joint Injection 15:51:27 REFERRAL RN CPT-OV Office Visit 15:52:02 REFERRAL RN CPT-OV Office Visit 15:45:11 CDT CPT-000 Give Zostavax 14:09:06 CDT CPT-99137 Administration single or combination vaccine inc oral 15 :19:04 CDT CPT-30116 Zoster Vaccine (Zostavax) 15:19:04 CDT CPT-57615 Administration single or combination vaccine inc oral 20 :51:03 CDT CPT-26136 Influenza split virus > age 3 20:51:03 CDT CPT-79536 No Charge Offi Visit 14:52:03 CDT CPT-OV Office Visit 14:57:43 CDT CPT-OV Office Visit 15:22:32 CDT CPT-44866 Administration single or combination vaccine inc oral 11 :33:15 CDT CPT-78974 Influenza split virus > age 3 11:33:15 CDT
--- OUTSIDE RECORDS SUMMARY | 2018-04-25 12:22 | XMS REPORT | Clinical Summary ---
Author Author Admin, SACHI Organization [employer] Address Unknown Phone Unavailable Allergies, Adverse Reactions, [...] essential hypertension Hypertension, benign essential 401.1 Active uT Landeros MD Benign essential hypertension LEG CRAMPS, [...] Upper respiratory infection, viral 465.9 Resolved Tu Lnaderos MD Acute upper respiratory infections of unspecified [...] localized, involving lower leg Obesity 278.00 Inactive uT Landeros MD Obesity, unspecified Morbid obesity 278.01 [...] magnesium metabolism URI 465.9 Inactive Lesli Kellogg TRIMMER [employer] Acute upper respiratory infections of unspecified [...] for up to 2 weeks TRIAMCINOLONE ACETONIDE 38082682956 Active Tu Landeros MD Active INDOMETHACIN 50 MG ORAL CAPSULE 1 po TID PRN Pain INDOMETHACIN 71071655624 Active Tu Landeros MD Active PROMETHAZINE-CODEINE 6.25-10 MG/5ML ORAL SYRUP 5ml po q6hr PRN Cough PROMETHAZINE-CODEINE 59663535822 No Longer Active Tu Landeros MD Active AZITHROMYCIN 250 MG ORAL TABLET 2 po qd x 1, then 1 po qd x 4 AZITHROMYCIN 01508475297 No Longer Active Tu Landeros MD Active GUAIFENESIN ER 600 MG ORAL TABLET EXTENDED RELEASE 12 HOUR 1 twice a day as needed for congestion GUAIFENESIN 70831026694 No Longer Active Tu Landeros MD Active PREDNISONE 20 MG ORAL TABLET 2 po qd x 5 days PREDNISONE 66984347067 No Longer Active Tu Landeros MD Active FLUTICASONE PROPIONATE 50 MCG/ACT NASAL SUSPENSION 2 sprays/nostril qd PRN Congestion/Allergies FLUTICASONE PROPIONATE 24708292988 Active Tu Landeros MD Active NASONEX 50 MCG/ACT NASAL SUSPENSION 2 actuations in each nostril q day 07/15 MOMETASONE FUROATE 16337748939 No Longer Active Tu Landeros MD Active MAGNESIUM OXIDE 400 MG ORAL TABLET 1 po BID MAGNESIUM OXIDE 50879602989 Active Tu Landeros MD Active SIMVASTATIN 20 MG ORAL TABLET 0.5 po qHS SIMVASTATIN 49547534667 Active Tu Landeros MD Active DICLOFENAC SODIUM 75 MG ORAL TABLET DELAYED RELEASE 1 po BID PRN Pain DICLOFENAC SODIUM 04284116107 No Longer Active Tu Landeros MD Active GABAPENTIN 100 MG ORAL CAPSULE 1 po TID GABAPENTIN 68774099118 Active Tu Landeros MD Active DICLOFENAC SODIUM 50 MG ORAL TABLET DELAYED RELEASE 1 po BID PRN Pain DICLOFENAC SODIUM 31612234811 No Longer Active Tu Landeros MD Active CYCLOBENZAPRINE HCL 10 MG ORAL TABLET 1 po TID PRN Muscle Spasm CYCLOBENZAPRINE HCL 90515549232 No Longer Active Tu Landeros MD Active INVOKANA 100 MG ORAL TABLET 1 po qd CANAGLIFLOZIN 71845199014 Active José Luis Becerra MD Active GLIPIZIDE 5 MG ORAL TABLET 1 po qd GLIPIZIDE 07516010563 No Longer Active Tu Landeros MD Active VENLAFAXINE HCL 75 MG ORAL TABLET 1 po BID VENLAFAXINE HCL 69762342103 Active Tu Landeros MD Active GLIMEPIRIDE 1 MG ORAL TABLET 1 po qd GLIMEPIRIDE 19193124220 No Longer Active Tu Landeros MD Active TRUE METRIX BLOOD GLUCOSE TEST IN VITRO STRIP Test blood sugar BID Dx: E11.9 GLUCOSE BLOOD 08901097699 Active Tu Landeros MD Active TRUE METRIX AIR GLUCOSE METER w/Device KIT Test blood glucose BID Dx: E11.9 BLOOD GLUCOSE MONITORING SUPPL 32778816778 Active Tu Landeros MD Active TRUETEST TEST IN VITRO STRIP test blood sugar twice daily. DX 250.0 GLUCOSE BLOOD 33428439544 No Longer Active Mirna Stanley LPN Active TRUEDRAW LANCING DEVICE test blood sugar twice daily dx: 250.00 LANCET DEVICES 84146919178 No Longer Active Mirna Stanley LPN Active ENALAPRIL MALEATE 20 MG ORAL TABLET 2 po qd ENALAPRIL MALEATE 41409657306 Active Tu Landeros MD Active SUPER B COMPLEX/VITAMIN C ORAL TABLET 1 qd B COMPLEX- C 49339322922 No Longer Active Tu Landeros MD Active ASPIRIN EC 81 MG ORAL TABLET DELAYED RELEASE 1 po qd ASPIRIN 70657214221 Active Tu Landeros MD Active GLUCOSAMINE 500 MG TABS 2 po qd GLUCOSAMINE Active Tu Landeros MD Active FISH OIL 1000 MG ORAL CAPSULE 1 po qd OMEGA-3 FATTY ACIDS 49319427294 Active Tu Landeros MD Active METFORMIN HCL 1000 MG ORAL TABLET 1 po BID METFORMIN HCL 50531912595 Active Tu Landeros MD Active KLOR-CON 10 10 MEQ ORAL TABLET EXTENDED RELEASE 2 po qd POTASSIUM CHLORIDE 98116011482 Active Tu Landeros MD Active FUROSEMIDE 40 MG ORAL TABLET 1 po qd FUROSEMIDE 99440522881 Active Tu Landeros MD Active REQUIP 2 MG ORAL TABLET 1 po qHS PRN Restless legs ROPINIROLE HCL 79551710898 Active Tu Landeros MD Active REQUIP 2 MG ORAL TABLET Take one tablet at bedtime prn ROPINIROLE HCL 18449230409 No Longer Active Tu Landeros MD Active VENTOLIN HFA 108 (90 Base) MCG/ACT INHALATION AEROSOL SOLUTION 1-2 puffs every 4 hours if needed for cough/congestion ALBUTEROL SULFATE 91953327926 No Longer Active Ambika Aden APRN Active ZITHROMAX 250 MG ORAL TABLET 2 po today, then 1 po q days 2-5 AZITHROMYCIN 86088648596 No Longer Active Miranda Farah APRN Active FLONASE 50 MCG/ACT NASAL SUSPENSION 1 spray each nostril twice daily until bottle empty FLUTICASONE PROPIONATE 21983392581 No Longer Active Tu Landeros MD Active COLACE 100 MG ORAL CAPSULE 1 po BID PRN Constipation DOCUSATE SODIUM 21963303250 Active Tu Landeros MD Active TRUERESULT BLOOD GLUCOSE w/Device KIT test blood sugar twice daily dx 250.00 BLOOD GLUCOSE MONITORING SUPPL 35790496218 No Longer Active Tu Landeros MD Active TRUEDRAW LANCING DEVICE Test twice a day dx 250.0 LANCET DEVICES 57813110591 No Longer Active Tu Landeros MD Active PREDNISONE 20 MG ORAL TABLET 2 tablets once daily for 2 days, then 1 tablet once daily for 2 days PREDNISONE 86231943176 No Longer Active Tu Landeros MD Active DICLOFENAC SODIUM 50 MG ORAL TABLET DELAYED RELEASE 1 tablet by mouth three times a day as needed DICLOFENAC SODIUM 71294119578 No Longer Active Fab Morales DO Active EMBRACE BLOOD GLUCOSE TEST IN VITRO STRIP test blood sugar twice daily DX 250.0 GLUCOSE BLOOD 91122977433 No Longer Active Tu Landeros MD Active TRUETEST TEST IN VITRO STRIP test blood sugar three times daily dx: 250.00 GLUCOSE BLOOD 06442935709 No Longer Active Suze VOGEL Active TRUERESULT BLOOD GLUCOSE w/Device KIT use to test blood sugar tid dx: 250.00 BLOOD GLUCOSE MONITORING SUPPL 31020437123 No Longer Active Suzebianca VOGEL Active ALIGN 4 MG ORAL CAPSULE 1 tid PROBIOTIC PRODUCT 36322059591 No Longer Active Shaun Sy MD Active CIPRO 500 MG ORAL TABLET 1 bid x 14 days start 09-28-13 CIPROFLOXACIN HCL 56962308684 No Longer Active Shaun Sy MD Active TRAMADOL HCL 50 MG ORAL TABLET 1-2 tablets every 6 hours as needed for pain TRAMADOL HCL 33812832937 Active Tu Landeros MD Active HYDROCODONE-ACETAMINOPHEN 5-325 MG ORAL TABLET 1 tab by mouth every 6 hours as needed for pain HYDROCODONE-ACETAMINOPHEN 47136666325 No Longer Active Tu Landeros MD Active OMEPRAZOLE 20 MG ORAL CAPSULE DELAYED RELEASE 1 po q a.m. OMEPRAZOLE 78528685542 Active Tu Landeros MD Active GABAPENTIN 100 MG ORAL CAPSULE 1 po bid GABAPENTIN 08026167649 No Longer Active Tu Landeros MD Active B-12 100 MCG ORAL TABLET Take one by mouth daily CYANOCOBALAMIN 88470184639 No Longer Active Tu Landeros MD Active BACTRIM DS 800-160 MG ORAL TABLET 1 bid x 14 day start 09-28-13 SULFAMETHOXAZOLE-TRIMETHOPRIM 32316515143 No Longer Active Tu Landeros MD Active CARVEDILOL 12.5 MG ORAL TABLET 1 po BID CARVEDILOL 86139111989 Active Tu Landeros MD Active TRILIPIX 135 MG ORAL CAPSULE DELAYED RELEASE 1 q hs CHOLINE FENOFIBRATE 69407585042 Active Tu Landeros MD Active FENOFIBRATE 145 MG ORAL TABLET 1 po qd FENOFIBRATE 56832681634 No Longer Active JASPREET Perez Active OMEPRAZOLE 20 MG ORAL TABLET DELAYED RELEASE 1 PO 30 MIN BEFORE 1ST MEAL 2010 OMEPRAZOLE 66537545881 No Longer Active JASPREET Perez Active SIMVASTATIN 40 MG ORAL TABLET Take one by mouth daily SIMVASTATIN 87308581287 No Longer Active Lapel [place], RMA Active VENLAFAXINE HCL 75 MG ORAL TABLET 1 po BID VENLAFAXINE HCL 81541507245 No Longer Active JASPREET Perez Active CIPRO 500 MG ORAL TABLET 1 tablet by mouth twice daily CIPROFLOXACIN HCL 54312503341 No Longer Active Tu Landeros MD Active VENLAFAXINE HCL 37.5 MG ORAL TABLET 1 po BID VENLAFAXINE HCL 71359691793 No Longer Active Suze Nicole NURYSA Active LAMISIL 250 MG ORAL TABLET 1 po qd TERBINAFINE HCL 63256176257 No Longer Active Tu Landeros MD Active LORTAB 5-500 MG ORAL TABLET 1/2 to 1 tablet by mouth every 4 hours as needed for pain HYDROCODONE-ACETAMINOPHEN 95787081260 No Longer Active Tu Landeros MD Active HYDROCODONE-ACETAMINOPHEN 5-500 MG ORAL TABLET take one po Q 4-6 hours prn HYDROCODONE-ACETAMINOPHEN 27659972468 No Longer Active Tu Landeros MD Active BACTRIM DS 800-160 MG ORAL TABLET 1 po BID x 7 days SULFAMETHOXAZOLE-TRIMETHOPRIM 32599348671 No Longer Active Tu Landeros MD Active VENLAFAXINE HCL 75 MG ORAL TABLET 1 po BID VENLAFAXINE HCL 21376219329 No Longer Active Elvira Cervantes MD PhD Active TRAMADOL HCL 50 MG ORAL TABLET 1 tablets every 6 hours as needed for pain TRAMADOL HCL 58008659626 No Longer Active Tu Landeros MD Active ACCU-CHEK FASTCLIX LANCETS Use to check bloodsugar three times daily as needed LANCETS 80126947860 No Longer Active Tu Landeros MD Active ACCU-CHEK KEYONA PLUS IN VITRO STRIP Use for testing bloodsugars three times daily as needed GLUCOSE BLOOD 98287845141 No Longer Active Tu Landeros MD Active ACCU-CHEK KEYONA PLUS w/Device KIT Use for testing bloodsugars three times daily as needed BLOOD GLUCOSE MONITORING SUPPL 27915596994 No Longer Active Tu Landeros MD Active SPIRONOLACTONE 25 MG ORAL TABLET 0.5 tablet by mouth daily 09/09 SPIRONOLACTONE 80003192745 No Longer Active Tu Landeros MD Active ALPRAZOLAM 0.5 MG ORAL TABLET 1 tab every 6hrs as needed ALPRAZOLAM 07175159040 No Longer Active Tu Landeros MD Active AUGMENTIN 875-125 MG ORAL TABLET 1 tab by mouth twice daily with food AMOXICILLIN-POT CLAVULANATE 37479142766 No Longer Active Tu Landeros MD Active PREDNISONE 20 MG ORAL TABLET 2 tabs daily for 3 days, 1 tab daily for 3 days, 1/2 tab daily for 2 days PREDNISONE 20963839430 No Longer Active Tu Landeros MD Active XANAX 0.5 MG ORAL TABLET 1 tablet every 6 hrs prn ALPRAZOLAM 25616541591 No Longer Active Tu Landeros MD Active PREDNISONE 20 MG ORAL TABLET 2 tabs daily for 3 days, 1 tab daily for 3 days, 1/2 tab daily for 2 days PREDNISONE 08370718137 No Longer Active Tu Landeros MD Active TRIAMCINOLONE ACETONIDE 0.1 % EXTERNAL OINTMENT Apply to affected areas TID for up to 2 weeks TRIAMCINOLONE ACETONIDE 85537709366 No Longer Active Tu Landeros MD Active LORTAB 5-500 MG ORAL TABLET 1/2 to 1 tablet by mouth every 4 hours as needed for pain HYDROCODONE-ACETAMINOPHEN 46420153399 No Longer Active Tu Landeros MD Active MULTIVITAMINS TABS Take one by mouth daily MULTIPLE VITAMIN 83341719141 No Longer Active Tu Landeros MD Active MELATONIN 5 MG ORAL TABLET Take one by mouth daily MELATONIN 77337919519 No Longer Active Tu Landeros MD Active SOMA 350 MG ORAL TABLET 1 po q 6 hours prn spasm CARISOPRODOL 84624800393 No Longer Active Tu Landeros MD Active MECLIZINE HCL 25 MG ORAL TABLET CHEWABLE 1 four times a day as needed for dizziness MECLIZINE HCL 17036188220 No Longer Active Fab Morales DO Active ANGEL BREEZE 2 TEST IN VITRO DISK test tid prn GLUCOSE BLOOD 48844467142 No Longer Active Negra Scott RN Active REGLAN 10 MG ORAL TABLET 1 po TID PRN Nausea METOCLOPRAMIDE HCL 09638037662 No Longer Active Tu Landeros MD Active METFORMIN HCL 500 MG ORAL TABLET 1 PO BID METFORMIN HCL 79370382545 No Longer Active Tu Landeros MD Active AMBIEN 10 MG ORAL TABLET 1 tab by mouth at bedtime as needed for sleep 06/10 ZOLPIDEM TARTRATE 70243801656 No Longer Active Tu Landeros MD Active FLUOXETINE HCL 40 MG ORAL CAPSULE 1 po q day FLUOXETINE HCL 67106611274 No Longer Active Mayra Terry Active TRILIPIX 135 MG ORAL CAPSULE DELAYED RELEASE 1 po qd CHOLINE FENOFIBRATE 00988570292 No Longer Active Tu Landeros MD Active AMBIEN 10 MG ORAL TABLET 1 tab by mouth at bedtime as needed for sleep 06/10 AMBIEN 10 MG ORAL TABLET 760378 ZOLPIDEM TARTRATE Inactive METFORMIN HCL 500 MG ORAL TABLET 1 PO BID METFORMIN HCL 500 MG ORAL TABLET 585204 METFORMIN HCL Inactive REGLAN 10 MG ORAL TABLET 1 po TID PRN Nausea REGLAN 10 MG ORAL TABLET 758267 METOCLOPRAMIDE HCL Inactive MECLIZINE HCL 25 MG ORAL TABLET CHEWABLE 1 four times a day as needed for dizziness MECLIZINE HCL 25 MG ORAL TABLET CHEWABLE 016848 MECLIZINE HCL Inactive SOMA 350 MG ORAL TABLET 1 po q 6 hours prn spasm SOMA 350 MG ORAL TABLET 159718 CARISOPRODOL Inactive MELATONIN 5 MG ORAL TABLET Take one by mouth daily MELATONIN 5 MG ORAL TABLET 633662 MELATONIN Inactive MULTIVITAMINS TABS Take one by mouth daily MULTIVITAMINS TABS MULTIPLE VITAMIN Inactive LORTAB 5-500 MG ORAL TABLET 1/2 to 1 tablet by mouth every 4 hours as needed for pain LORTAB 5-500 MG ORAL TABLET HYDROCODONE- ACETAMINOPHEN Inactive XANAX 0.5 MG ORAL TABLET 1 tablet every 6 hrs prn XANAX 0.5 MG ORAL TABLET 177361 ALPRAZOLAM Inactive AUGMENTIN 875-125 MG ORAL TABLET 1 tab by mouth twice daily with food AUGMENTIN 875-125 MG ORAL TABLET 754708 AMOXICILLIN-POT CLAVULANATE Inactive ALPRAZOLAM 0.5 MG ORAL TABLET 1 tab every 6hrs as needed ALPRAZOLAM 0.5 MG ORAL TABLET 016653 ALPRAZOLAM Inactive SPIRONOLACTONE 25 MG ORAL TABLET 0.5 tablet by mouth daily 09/09 SPIRONOLACTONE 25 MG ORAL TABLET 229683 SPIRONOLACTONE Inactive ACCU-CHEK KEYONA PLUS w/Device KIT [...] times daily as needed ACCU-CHEK FASTCLIX LANCETS 22922072577 LANCETS Inactive TRAMADOL HCL 50 MG ORAL TABLET 1 tablets every 6 hours as needed for pain TRAMADOL HCL 50 MG ORAL TABLET 519255 TRAMADOL HCL Inactive VENLAFAXINE HCL 75 MG ORAL TABLET 1 po BID VENLAFAXINE HCL 75 MG ORAL TABLET 516177 VENLAFAXINE HCL Inactive HYDROCODONE-ACETAMINOPHEN 5-500 MG ORAL TABLET take one po Q 4-6 hours prn HYDROCODONE-ACETAMINOPHEN 5-500 MG ORAL TABLET HYDROCODONE-ACETAMINOPHEN Inactive LORTAB 5-500 MG ORAL TABLET 1/2 to 1 tablet by mouth every 4 hours as needed for pain LORTAB 5-500 MG ORAL TABLET HYDROCODONE- ACETAMINOPHEN Inactive LAMISIL 250 MG ORAL TABLET 1 po qd LAMISIL 250 MG ORAL TABLET 026573 TERBINAFINE HCL Inactive VENLAFAXINE HCL 37.5 MG ORAL TABLET 1 po BID VENLAFAXINE HCL 37.5 MG ORAL TABLET 597246 VENLAFAXINE HCL Inactive CIPRO 500 MG ORAL TABLET 1 tablet by mouth twice daily CIPRO 500 MG ORAL TABLET 960473 CIPROFLOXACIN HCL Inactive VENLAFAXINE HCL 75 MG ORAL TABLET 1 po BID VENLAFAXINE HCL 75 MG ORAL TABLET 105112 VENLAFAXINE HCL Inactive SIMVASTATIN 40 MG ORAL TABLET Take one by mouth daily SIMVASTATIN 40 MG ORAL TABLET 903532 SIMVASTATIN Inactive OMEPRAZOLE 20 MG ORAL TABLET DELAYED RELEASE 1 PO 30 MIN BEFORE 1ST MEAL 2010 OMEPRAZOLE 20 MG ORAL TABLET DELAYED RELEASE 639960 OMEPRAZOLE Inactive FENOFIBRATE 145 MG ORAL TABLET 1 po qd FENOFIBRATE 145 MG ORAL TABLET 750021 FENOFIBRATE Inactive BACTRIM DS 800-160 MG ORAL TABLET 1 bid x 14 day start 09-28-13 BACTRIM DS 800-160 MG ORAL TABLET 465083 SULFAMETHOXAZOLE- TRIMETHOPRIM Inactive B-12 100 MCG ORAL TABLET Take one by mouth daily B-12 100 MCG ORAL TABLET CYANOCOBALAMIN Inactive GABAPENTIN 100 MG ORAL CAPSULE 1 po bid GABAPENTIN 100 MG ORAL CAPSULE 110136 GABAPENTIN Inactive HYDROCODONE-ACETAMINOPHEN 5-325 MG ORAL TABLET 1 tab by mouth every 6 hours as needed for pain HYDROCODONE-ACETAMINOPHEN 5-325 MG ORAL TABLET 931804 HYDROCODONE-ACETAMINOPHEN Inactive CIPRO 500 MG ORAL TABLET 1 bid x 14 days start 09-28-13 CIPRO 500 MG ORAL TABLET 337779 CIPROFLOXACIN HCL Inactive ALIGN 4 MG ORAL [...] SODIUM 50 MG ORAL TABLET DELAYED RELEASE 997443 DICLOFENAC SODIUM Inactive PREDNISONE 20 MG ORAL TABLET 2 tablets once daily for 2 days, then 1 tablet once daily for 2 days PREDNISONE 20 MG ORAL TABLET 337768 PREDNISONE Inactive TRUEDRAW LANCING DEVICE Test twice a day dx 250.0 TRUEDRAW LANCING DEVICE LANCET DEVICES Inactive TRUERESULT BLOOD GLUCOSE w/Device KIT test blood sugar twice daily dx 250.00 TRUERESULT BLOOD GLUCOSE w/Device KIT BLOOD GLUCOSE MONITORING SUPPL Inactive FLONASE 50 MCG/ACT NASAL SUSPENSION 1 spray each nostril twice daily until bottle empty FLONASE 50 MCG/ACT NASAL SUSPENSION 2545452 FLUTICASONE PROPIONATE Inactive VENTOLIN HFA 108 (90 Base) MCG/ACT INHALATION AEROSOL SOLUTION 1-2 puffs every 4 hours if needed for cough/congestion VENTOLIN HFA 108 (90 Base) MCG/ACT INHALATION AEROSOL SOLUTION ALBUTEROL SULFATE Inactive REQUIP 2 MG ORAL TABLET Take one tablet at bedtime prn REQUIP 2 MG ORAL TABLET 035789 ROPINIROLE HCL Inactive SUPER B COMPLEX/VITAMIN C ORAL TABLET 1 qd SUPER B COMPLEX/VITAMIN C ORAL TABLET 20888907119 B COMPLEX-C Inactive TRUEDRAW LANCING DEVICE test blood sugar twice daily dx: 250.00 TRUEDRAW LANCING DEVICE LANCET DEVICES Inactive TRUETEST TEST IN VITRO STRIP test blood sugar twice daily. DX 250.0 TRUETEST TEST IN VITRO STRIP GLUCOSE BLOOD Inactive CYCLOBENZAPRINE HCL 10 MG ORAL TABLET 1 po TID PRN Muscle Spasm CYCLOBENZAPRINE HCL 10 MG ORAL TABLET 848191 CYCLOBENZAPRINE HCL Inactive DICLOFENAC SODIUM 50 MG ORAL TABLET DELAYED RELEASE 1 po BID PRN Pain DICLOFENAC SODIUM 50 MG ORAL TABLET DELAYED RELEASE 391980 DICLOFENAC SODIUM Inactive DICLOFENAC SODIUM 75 MG ORAL TABLET DELAYED RELEASE 1 po BID PRN Pain DICLOFENAC SODIUM 75 MG ORAL TABLET DELAYED RELEASE 307505 DICLOFENAC SODIUM Inactive NASONEX 50 MCG/ACT NASAL SUSPENSION 2 actuations in each nostril q day 07/15 NASONEX 50 MCG/ACT NASAL SUSPENSION 6990392 MOMETASONE FUROATE Inactive GUAIFENESIN ER 600 MG ORAL TABLET EXTENDED RELEASE 12 HOUR 1 twice a day as needed for congestion GUAIFENESIN ER 600 MG ORAL TABLET EXTENDED RELEASE 12 HOUR GUAIFENESIN Inactive AZITHROMYCIN 250 MG ORAL TABLET 2 po qd x 1, then 1 po qd x 4 AZITHROMYCIN 250 MG ORAL TABLET 880230 AZITHROMYCIN Inactive PROMETHAZINE-CODEINE 6.25-10 MG/5ML ORAL SYRUP 5ml po q6hr PRN Cough PROMETHAZINE-CODEINE 6.25-10 MG/5ML ORAL SYRUP 386840 PROMETHAZINE-CODEINE Inactive TRIAMCINOLONE ACETONIDE 0.1 % EXTERNAL OINTMENT Apply to affected areas TID for up to 2 weeks TRIAMCINOLONE ACETONIDE 0.1 % EXTERNAL OINTMENT 4354814 TRIAMCINOLONE ACETONIDE Inactive PREDNISONE 20 MG ORAL TABLET 2 tabs daily for 3 days, 1 tab daily for 3 days, 1/2 tab daily for 2 days PREDNISONE 20 MG ORAL TABLET 601764 PREDNISONE Inactive PREDNISONE 20 MG ORAL TABLET 2 tabs daily for 3 days, 1 tab daily for 3 days, 1/2 tab daily for 2 days PREDNISONE 20 MG ORAL TABLET 017619 PREDNISONE Inactive BACTRIM DS 800-160 MG ORAL TABLET 1 po BID x 7 days BACTRIM DS 800-160 MG ORAL TABLET 602997 SULFAMETHOXAZOLE-TRIMETHOPRIM Inactive ZITHROMAX 250 MG ORAL TABLET 2 po today, then 1 po q days 2-5 ZITHROMAX 250 MG ORAL TABLET 071097 AZITHROMYCIN Inactive PREDNISONE 20 MG ORAL TABLET 2 po qd x 5 days PREDNISONE 20 MG ORAL TABLET 990506 PREDNISONE Inactive Advance Directives Directive Description Start Date DISCUSSED WITH PATIENT -- NO DECISION MADE Immunizations Vaccine Administration Date Value Standard Description Seasonal influenza vaccine, injectable, containing preservative, for > 3 years old (Afluria, FluLaval, Fluzone, Fluvirin, Fluarix, Agriflu(>=18 yo)) Fluzone (>3 yrs.) [[id number]] Influenza, seasonal, injectable influenza immunization (Flu Vax) has been administered 02/22/2012 influenza virus vaccine, unspecified formulation Seasonal influenza vaccine, injectable, containing preservative, for > 3 years old (Afluria, FluLaval, Fluzone, Fluvirin, Fluarix, Agriflu(>=18 yo)) Fluzone (>3 yrs.) [[id number]] Influenza, seasonal, injectable Vital Signs Date Name [...] ... - Chemistry sodium, serum 141 mmol/L 260-331 7909/01/16 carbon dioxide, venous blood 28.3 mmol/L 21.0-32.0 [...] 6.7 % 4.3-6.0 cholesterol, serum 106 mg/dL 715-058 4295/01/16 triglyceride, serum, fasting 173 mg/dL 30-200 HDL [...] Magnesium - Chemistry sodium, serum 142 mmol/L 508-921 9911/07/16 carbon dioxide, venous blood 29.4 mmol/L 21.0-32.0 [...] Panel - Chemistry cholesterol, serum 170 mg/dL 431-620 2880/07/16 triglyceride, serum, fasting 266 mg/dL 30-200 HDL cholesterol, serum 42 mg/dL 32-60 LDL cholesterol, serum 75 mg/dL 0-130 Encounters Code Encounter Date Provider Facility CPT-40396 Level 4 Est. Patient 14:46:36 CDT Tu Landeros MD [facility] CPT-02155 Level 3 Est. Patient 10:28:05 CDT Tu Landeros MD [facility] CPT-19250 Level 3 Est. Patient 09:11:32 CDT Tu Landeros MD [facility] CPT-13104 Level 3 Est. Patient 10:13:19 PATIENT FINANCIAL REPRESENTATIVE Lesli Kellogg APRN [facility] CPT-62803 Level 4 Est. Patient 13:42:02 PATIENT FINANCIAL REPRESENTATIVE Tu Landeros MD [facility] CPT-10456 Level 3 Est. Patient 14:20:36 CDT Tu Landeros MD [facility] CPT-04442 Level 4 Est. Patient 14:28:34 CDT Tu Landeros MD [facility] CPT-22141 Level 3 Est. Patient 13:33:09 CDT Tu Landeros MD [facility] CPT-23253 Level 4 Est. Patient 14:29:21 CDT Tu Landeros MD [facility] CPT-45278 Level 4 Est. Patient 09:08:17 PATIENT FINANCIAL REPRESENTATIVE Tu Landeros MD [facility] CPT-95334 Level 4 Est. Patient 14:40:19 CDT Tu Landeros MD [facility] CPT-75866 Level 4 Est. Patient 14:06:04 PATIENT FINANCIAL REPRESENTATIVE Tu Landeros MD [facility] CPT-67798 Level 3 Est. Patient 14:05:18 PATIENT FINANCIAL REPRESENTATIVE Tu Landeros MD [facility] CPT-82351 Level 3 Est. Patient 10:06:54 PATIENT FINANCIAL REPRESENTATIVE Miranda Farah APRN [facility] CPT-50539 Level 4 Est. Patient 13:50:18 PATIENT FINANCIAL REPRESENTATIVE Tu Landeros MD [facility] CPT-63067 Level 3 Est. Patient 10:30:04 CDT Tu Landeros MD [facility] CPT-36822 Level 4 Est. Patient 11:03:38 CDT Tu Landeros MD [facility] CPT-43720 Level 3 Est. Patient 10:20:44 CDT Fab Morales DO [facility] CPT-65620 Level 4 Est. Patient 14:38:57 CDT Tu Landeros MD [facility] CPT-83637 Level 4 Est. Patient 14:27:39 PATIENT FINANCIAL REPRESENTATIVE Tu Landeros MD [facility] CPT-00464 Level 4 Est. Patient 09:45:25 CDT Tu Landeros MD [facility] CPT-73181 Level 4 Est. Patient 09:05:20 PATIENT FINANCIAL REPRESENTATIVE Tu Landeros MD [facility] CPT-45487 Level 4 Est. Patient 14:09:06 CDT Tu Landeros MD [facility] CPT-26515 Level 3 Est. Patient 13:36:54 CDT Tu Landeros MD [facility] CPT-08624 Level 3 Est. Patient 08:59:14 CDT Tu Landeros MD [facility] CPT-89742 Level 3 Est. Patient 13:48:35 CDT Fab Morales DO [facility] CPT-50995 Level 4 Est. Patient 10:05:48 CDT Tu Landeros MD [facility] CPT-44048 Level 3 Est. Patient 13:38:42 CDT Marek BANKS [facility] CPT-99866 Level 5 Est. Patient 08:08:39 CDT Jerrica FRANCIS [facility] CPT-14519 Level 4 Est. Patient 14:23:38 CDT Tu Landeros MD [facility] CPT-39922 Level 3 Est. Patient 11:44:04 CDT Tu Landeros MD [facility] CPT-92588 Level 3 Est. Patient 11:03:20 PATIENT FINANCIAL REPRESENTATIVE Tu Landeros MD [facility] CPT-43299 Level 3 Est. Patient 11:03:14 PATIENT FINANCIAL REPRESENTATIVE Tu Landeros MD [facility] CPT-14603 Level 3 Est. Patient 12:42:49 CDT Tu Landeros MD [facility] CPT-10767 Level 3 Est. Patient 11:52:06 CDT uT Landeros MD [facility] CPT-56341 Level 3 Est. Patient 13:58:11 CDT Tu Landeros MD [facility] CPT-26503 Level 3 Est. Patient 17:50:07 CDT Fab Morales DO [facility] CPT-19047 Level 3 Est. Patient 12:06:29 CDT Elvira Cervantes MD, PhD [facility] CPT-67050 Level 3 Est. Patient 15:50:32 CDT Tu Landeros MD [facility] CPT-83825 Level 4 Est. Patient 16:08:29 CDT Tu Landeros MD [facility] CPT-23890 Level 3 Est. Patient 16:04:19 CDT Tu Landeros MD [facility] CPT-56332 Level 3 Est. Patient 11:22:30 PATIENT FINANCIAL REPRESENTATIVE Tu Landeros MD [facility] CPT-13693 Level 4 Est. Patient 16:24:02 PATIENT FINANCIAL REPRESENTATIVE Tu Landeros MD [facility] CPT-26507 Level 3 Est. Patient 17:21:23 PATIENT FINANCIAL REPRESENTATIVE Tu Landeros MD [facility] Procedures Code Procedure Name Date Entry Date Standard Description CPT-G0439 Subsequent Annual Wellness Exam 14:46:36 CDT CPT-73006 Shoulder, right, comp min 2V - XRAY USE ONLY 13:50:22 CDT CPT-G0009 Administration of Pneumococcal Vaccine 15:08:26 CDT CPT-33885 Prevnar 13 Intramuscular Suspension 15:08:26 CDT 10/08 CPT-G0439 Subsequent Annual Wellness Exam 14:29:22 CDT CPT-39789 Venipuncture Draw Fee 13:15:35 CDT CPT-75809 Magnesium - LAB USE ONLY 11:14:20 PATIENT FINANCIAL REPRESENTATIVE CPT-64920 Lipid - LAB USE ONLY 11:14:20 PATIENT FINANCIAL REPRESENTATIVE CPT-71634 HGBA1C - LAB USE ONLY 11:14:20 PATIENT FINANCIAL REPRESENTATIVE CPT-91801 CMP - LAB USE ONLY 11:14:19 PATIENT FINANCIAL REPRESENTATIVE CPT-16507 CBC - LAB USE ONLY 11:14:19 PATIENT FINANCIAL REPRESENTATIVE CPT-63672 Venipuncture Draw Fee 11:14:18 PATIENT FINANCIAL REPRESENTATIVE CPT-60862 First Vx - Ix admin for Medicare patients 16:46:52 CDT CPT-63639 Fluzone Preservative Free Intramuscular Suspension 16:46 :51 CDT CPT-85956 CBC - LAB USE ONLY 17:14:46 CDT CPT-38232 HGBA1C - LAB USE ONLY 17:14:46 CDT CPT-22061 Venipuncture Draw Fee 17:14:46 CDT CPT-G0438 Initial Annual Wellness Exam 14:13:04 CDT CPT-58577 Breathing Tx 10:06:54 PATIENT FINANCIAL REPRESENTATIVE CPT-20226 Postop F/U Visit 10:02:45 CDT CPT-LR Lesion Removal 09:02:56 CDT CPT-JTINJ Asp/Joint Injection 15:51:27 PATIENT FINANCIAL REPRESENTATIVE CPT-OV Office Visit 15:52:02 PATIENT FINANCIAL REPRESENTATIVE CPT-OV Office Visit 15:45:11 CDT CPT-000 Give Zostavax 14:09:06 CDT CPT-82913 Administration single or combination vaccine inc oral 15 :19:04 CDT CPT-50611 Zoster Vaccine (Zostavax) 15:19:04 CDT CPT-38160 Administration single or combination vaccine inc oral 20 :51:03 CDT CPT-02926 Influenza split virus > age 3 20:51:03 CDT CPT-65683 No Charge Offi Visit 14:52:03 CDT CPT-OV Office Visit 14:57:43 CDT CPT-OV Office Visit 15:22:32 CDT CPT-16618 Administration single or combination vaccine inc oral 11 :33:15 CDT CPT-70718 Influenza split virus > age 3 11:33:15 CDT
--- OUTSIDE RECORDS SUMMARY | 2018-04-25 12:24 | XMS REPORT | Clinical Summary ---
Author Author Admin, SACHI Organization [employer] [facility] Address Unknown Phone Unavailable Allergies, Adverse Reactions, [...] MD Other and unspecified hyperlipidemia Hyperlipidemia 272.4 Active Tu Landeros MD Other and [...] a health care facility Health screening V70.0 Active Tu Landeros MD Routine general [...] magnesium metabolism URI 465.9 Inactive Lesli Kellogg APRN Acute upper respiratory infections of unspecified site [...] ULCER UNSPECIFIED SITE ICD-707.00 Tessa Landeros MD LOCALIZED SUPERFICIAL SWELLING MASS OR LUMP ICD-782.2 Inactive Tu Landeros MD ONYCHOMYCOSIS ICD-110.1 Inactive Tu Landeros MD Open wound of abdominal wall, anterior, complicated ICD-879.3 Inactive Tu Landeros MD Upper respiratory infection, viral ICD-465.9 Tessa Sy MD Open wound of other and unspecified parts of trunk, complicated ICD-879.7 Inactive Tu Landeros MD Knee pain, left, acute ICD-719.46 Tessa Landeros MD Osteoarthritis ICD-715.90 Tessa Landeros MD Ear pain, bilateral ICD-388.70 [...] Generic Name NDC Status Provider Patient Instruction INDOMETHACIN 50 MG ORAL CAPSULE 1 po TID PRN Pain INDOMETHACIN 69306869472 Active Tu Landeros MD Active PROMETHAZINE-CODEINE 6.25-10 MG/5ML ORAL SYRUP 5ml po q6hr PRN Cough PROMETHAZINE-CODEINE 07008934830 No Longer Active Tu Landeros MD Active AZITHROMYCIN 250 MG ORAL TABLET 2 po qd x 1, then 1 po qd x 4 AZITHROMYCIN 20977720073 No Longer Active Tu Landeros MD Active GUAIFENESIN ER 600 MG ORAL TABLET EXTENDED RELEASE 12 HOUR 1 twice a day as needed for congestion GUAIFENESIN 23333534917 No Longer Active Tu Landeros MD Active PREDNISONE 20 MG ORAL TABLET 2 po qd x 5 days PREDNISONE 59025880985 No Longer Active Tu Landeros MD Active FLUTICASONE PROPIONATE 50 MCG/ACT NASAL SUSPENSION 2 sprays/nostril qd PRN Congestion/Allergies FLUTICASONE PROPIONATE 94925134953 Active Tu Landeros MD Active NASONEX 50 MCG/ACT NASAL SUSPENSION 2 actuations in each nostril q day 07/15 MOMETASONE FUROATE 60731866808 No Longer Active Tu Landeros MD Active MAGNESIUM OXIDE 400 MG ORAL TABLET 1 po BID MAGNESIUM OXIDE 27776666708 Active Tu Landeros MD Active SIMVASTATIN 20 MG ORAL TABLET 0.5 po qHS SIMVASTATIN 62587660778 Active Tu Landeros MD Active DICLOFENAC SODIUM 75 MG ORAL TABLET DELAYED RELEASE 1 po BID PRN Pain DICLOFENAC SODIUM 86775542243 No Longer Active Tu Landeros MD Active GABAPENTIN 100 MG ORAL CAPSULE 1 po TID GABAPENTIN 33545808529 Active Tu Landeros MD Active DICLOFENAC SODIUM 50 MG ORAL TABLET DELAYED RELEASE 1 po BID PRN Pain DICLOFENAC SODIUM 79343869564 No Longer Active Tu Landeros MD Active CYCLOBENZAPRINE HCL 10 MG ORAL TABLET 1 po TID PRN Muscle Spasm CYCLOBENZAPRINE HCL 68281232162 No Longer Active Tu Landeros MD Active INVOKANA 100 MG ORAL TABLET 1 po qd CANAGLIFLOZIN 04981934485 Active José Luis Becerra MD Active GLIPIZIDE 5 MG ORAL TABLET 1 po qd GLIPIZIDE 78676390211 No Longer Active Tu Landeros MD Active VENLAFAXINE HCL 75 MG ORAL TABLET 1 po BID VENLAFAXINE HCL 29217094593 Active Tu Landeros MD Active GLIMEPIRIDE 1 MG ORAL TABLET 1 po qd GLIMEPIRIDE 93894290844 No Longer Active Tu Landeros MD Active TRUE METRIX BLOOD GLUCOSE TEST IN VITRO STRIP Test blood sugar BID Dx: E11.9 GLUCOSE BLOOD 78443056333 Active Tu Landeros MD Active TRUE METRIX AIR GLUCOSE METER w/Device KIT Test blood glucose BID Dx: E11.9 BLOOD GLUCOSE MONITORING SUPPL 12755415090 Active Tu Landeros MD Active TRUETEST TEST IN VITRO STRIP test blood sugar twice daily. DX 250.0 GLUCOSE BLOOD 13326273347 No Longer Active Mirna Stanley LPN Active TRUEDRAW LANCING DEVICE test blood sugar twice daily dx: 250.00 LANCET DEVICES 85559735714 No Longer Active Mirna Stanley LPN Active ENALAPRIL MALEATE 20 MG ORAL TABLET 2 po qd ENALAPRIL MALEATE 95562319736 Active Tu Landeros MD Active SUPER B COMPLEX/VITAMIN C ORAL TABLET 1 qd B COMPLEX- C 08397903593 No Longer Active Tu Landeros MD Active ASPIRIN EC 81 MG ORAL TABLET DELAYED RELEASE 1 po qd ASPIRIN 96636020121 Active Tu Landeros MD Active GLUCOSAMINE 500 MG TABS 2 po qd GLUCOSAMINE Active Tu Landeros MD Active FISH OIL 1000 MG ORAL CAPSULE 1 po qd OMEGA-3 FATTY ACIDS 02011776299 Active Tu Landeros MD Active METFORMIN HCL 1000 MG ORAL TABLET 1 po BID METFORMIN HCL 71776570643 Active Tu Landeros MD Active KLOR-CON 10 10 MEQ ORAL TABLET EXTENDED RELEASE 2 po qd POTASSIUM CHLORIDE 30283807996 Active Tu Landeros MD Active FUROSEMIDE 40 MG ORAL TABLET 1 po qd FUROSEMIDE 42512945450 Active Tu Landeros MD Active REQUIP 2 MG ORAL TABLET 1 po qHS PRN Restless legs ROPINIROLE HCL 85996988699 Active Tu Landeros MD Active REQUIP 2 MG ORAL TABLET Take one tablet at bedtime prn ROPINIROLE HCL 05761167230 No Longer Active Tu Landeros MD Active VENTOLIN HFA 108 (90 Base) MCG/ACT INHALATION AEROSOL SOLUTION 1-2 puffs every 4 hours if needed for cough/congestion ALBUTEROL SULFATE 33084687991 No Longer Active Ambika Aden APRN Active ZITHROMAX 250 MG ORAL TABLET 2 po today, then 1 po q days 2-5 AZITHROMYCIN 48938822581 No Longer Active Miranda Farah APRN Active FLONASE 50 MCG/ACT NASAL SUSPENSION 1 spray each nostril twice daily until bottle empty FLUTICASONE PROPIONATE 22524384074 No Longer Active Tu Landeros MD Active COLACE 100 MG ORAL CAPSULE 1 po BID PRN Constipation DOCUSATE SODIUM 16722836143 Active Tu Landeros MD Active TRUERESULT BLOOD GLUCOSE w/Device KIT test blood sugar twice daily dx 250.00 BLOOD GLUCOSE MONITORING SUPPL 24911136567 No Longer Active Tu Landeros MD Active TRUEDRAW LANCING DEVICE Test twice a day dx 250.0 LANCET DEVICES 97074482465 No Longer Active Tu Landeros MD Active PREDNISONE 20 MG ORAL TABLET 2 tablets once daily for 2 days, then 1 tablet once daily for 2 days PREDNISONE 94802960366 No Longer Active Tu Landeros MD Active DICLOFENAC SODIUM 50 MG ORAL TABLET DELAYED RELEASE 1 tablet by mouth three times a day as needed DICLOFENAC SODIUM 57816672114 No Longer Active Fab Morales DO Active EMBRACE BLOOD GLUCOSE TEST IN VITRO STRIP test blood sugar twice daily DX 250.0 GLUCOSE BLOOD 22712834761 No Longer Active Tu Landeros MD Active TRUETEST TEST IN VITRO STRIP test blood sugar three times daily dx: 250.00 GLUCOSE BLOOD 65680764540 No Longer Active Suzebianca VOGEL Active TRUERESULT BLOOD GLUCOSE w/Device KIT use to test blood sugar tid dx: 250.00 BLOOD GLUCOSE MONITORING SUPPL 50680695583 No Longer Active Suze Corey NURYSA Active ALIGN 4 MG ORAL CAPSULE 1 tid PROBIOTIC PRODUCT 00566874522 No Longer Active Shaun Sy MD Active CIPRO 500 MG ORAL TABLET 1 bid x 14 days start 09-28-13 CIPROFLOXACIN HCL 15294071771 No Longer Active Shaun Sy MD Active TRAMADOL HCL 50 MG ORAL TABLET 1-2 tablets every 6 hours as needed for pain TRAMADOL HCL 74758305338 Active Tu Landeros MD Active HYDROCODONE-ACETAMINOPHEN 5-325 MG ORAL TABLET 1 tab by mouth every 6 hours as needed for pain HYDROCODONE-ACETAMINOPHEN 43281454194 No Longer Active Tu Landeros MD Active OMEPRAZOLE 20 MG ORAL CAPSULE DELAYED RELEASE 1 po q a.m. OMEPRAZOLE 34765750202 Active Tu Landeros MD Active GABAPENTIN 100 MG ORAL CAPSULE 1 po bid GABAPENTIN 73095580756 No Longer Active Tu Landeros MD Active B-12 100 MCG ORAL TABLET Take one by mouth daily CYANOCOBALAMIN 46252463848 No Longer Active Tu Landeros MD Active BACTRIM DS 800-160 MG ORAL TABLET 1 bid x 14 day start 09-28-13 SULFAMETHOXAZOLE-TRIMETHOPRIM 42740390632 No Longer Active Tu Landeros MD Active CARVEDILOL 12.5 MG ORAL TABLET 1 po BID CARVEDILOL 82749207314 Active Tu Landeros MD Active TRILIPIX 135 MG ORAL CAPSULE DELAYED RELEASE 1 q hs CHOLINE FENOFIBRATE 62598193343 Active Tu Landeros MD Active FENOFIBRATE 145 MG ORAL TABLET 1 po qd FENOFIBRATE 14601479061 No Longer Active JASPREET Perez Active OMEPRAZOLE 20 MG ORAL TABLET DELAYED RELEASE 1 PO 30 MIN BEFORE 1ST MEAL 2010 OMEPRAZOLE 39016916901 No Longer Active JASPREET Perez Active SIMVASTATIN 40 MG ORAL TABLET Take one by mouth daily SIMVASTATIN 80604130947 No Longer Active JASPREET Perez Active VENLAFAXINE HCL 75 MG ORAL TABLET 1 po BID VENLAFAXINE HCL 93473071017 No Longer Active JASPREET Perez Active CIPRO 500 MG ORAL TABLET 1 tablet by mouth twice daily CIPROFLOXACIN HCL 51104581527 No Longer Active Tu Landeros MD Active VENLAFAXINE HCL 37.5 MG ORAL TABLET 1 po BID VENLAFAXINE HCL 95598560360 No Longer Active Suze Nicole A Active LAMISIL 250 MG ORAL TABLET 1 po qd TERBINAFINE HCL 35993591477 No Longer Active Tu Landeros MD Active LORTAB 5-500 MG ORAL TABLET 1/2 to 1 tablet by mouth every 4 hours as needed for pain HYDROCODONE-ACETAMINOPHEN 27369535093 No Longer Active Tu Landeros MD Active HYDROCODONE-ACETAMINOPHEN 5-500 MG ORAL TABLET take one po Q 4-6 hours prn HYDROCODONE-ACETAMINOPHEN 35804940022 No Longer Active Tu Landeros MD Active BACTRIM DS 800-160 MG ORAL TABLET 1 po BID x 7 days SULFAMETHOXAZOLE-TRIMETHOPRIM 63355547730 No Longer Active Tu Landeros MD Active VENLAFAXINE HCL 75 MG ORAL TABLET 1 po BID VENLAFAXINE HCL 08958774915 No Longer Active Elvira Cervantes MD PhD Active TRAMADOL HCL 50 MG ORAL TABLET 1 tablets every 6 hours as needed for pain TRAMADOL HCL 34329632148 No Longer Active Tu Landeros MD Active ACCU-CHEK FASTCLIX LANCETS Use to check bloodsugar three times daily as needed LANCETS 95739107174 No Longer Active Tu Landeros MD Active ACCU-CHEK KEYONA PLUS IN VITRO STRIP Use for testing bloodsugars three times daily as needed GLUCOSE BLOOD 06424711742 No Longer Active Tu Landeros MD Active ACCU-CHEK KEYONA PLUS w/Device KIT Use for testing bloodsugars three times daily as needed BLOOD GLUCOSE MONITORING SUPPL 11803254716 No Longer Active Tu Landeros MD Active SPIRONOLACTONE 25 MG ORAL TABLET 0.5 tablet by mouth daily 09/09 SPIRONOLACTONE 12351502143 No Longer Active Tu Landeros MD Active ALPRAZOLAM 0.5 MG ORAL TABLET 1 tab every 6hrs as needed ALPRAZOLAM 43688373474 No Longer Active Tu Landeros MD Active AUGMENTIN 875-125 MG ORAL TABLET 1 tab by mouth twice daily with food AMOXICILLIN-POT CLAVULANATE 71511868052 No Longer Active Tu Landeros MD Active PREDNISONE 20 MG ORAL TABLET 2 tabs daily for 3 days, 1 tab daily for 3 days, 1/2 tab daily for 2 days PREDNISONE 91028038021 No Longer Active Tu Landeros MD Active XANAX 0.5 MG ORAL TABLET 1 tablet every 6 hrs prn ALPRAZOLAM 82631633093 No Longer Active Tu Landeros MD Active PREDNISONE 20 MG ORAL TABLET 2 tabs daily for 3 days, 1 tab daily for 3 days, 1/2 tab daily for 2 days PREDNISONE 79176293054 No Longer Active Tu Landeros MD Active TRIAMCINOLONE ACETONIDE 0.1 % EXTERNAL OINTMENT Apply to affected areas TID for up to 2 weeks TRIAMCINOLONE ACETONIDE 86171312694 No Longer Active Tu Landeros MD Active LORTAB 5-500 MG ORAL TABLET 1/2 to 1 tablet by mouth every 4 hours as needed for pain HYDROCODONE-ACETAMINOPHEN 67301841424 No Longer Active Tu Landeros MD Active MULTIVITAMINS TABS Take one by mouth daily MULTIPLE VITAMIN 85241261003 No Longer Active Tu Landeros MD Active MELATONIN 5 MG ORAL TABLET Take one by mouth daily MELATONIN 46130067053 No Longer Active Tu Landeros MD Active SOMA 350 MG ORAL TABLET 1 po q 6 hours prn spasm CARISOPRODOL 53231015700 No Longer Active Tu Landeros MD Active MECLIZINE HCL 25 MG ORAL TABLET CHEWABLE 1 four times a day as needed for dizziness MECLIZINE HCL 48886842218 No Longer Active Fab Morales DO Active ANGEL BREEZE 2 TEST IN VITRO DISK test tid prn GLUCOSE BLOOD 96893276837 No Longer Active Negra Scott MICHAEL Active REGLAN 10 MG ORAL TABLET 1 po TID PRN Nausea METOCLOPRAMIDE HCL 83574206250 No Longer Active Tu Landeros MD Active METFORMIN HCL 500 MG ORAL TABLET 1 PO BID METFORMIN HCL 26924464125 No Longer Active Tu Landeros MD Active AMBIEN 10 MG ORAL TABLET 1 tab by mouth at bedtime as needed for sleep 06/10 ZOLPIDEM TARTRATE 77891866442 No Longer Active Tu Landeros MD Active FLUOXETINE HCL 40 MG ORAL CAPSULE 1 po q day FLUOXETINE HCL 66726674535 No Longer Active Mayra Terry Active TRILIPIX 135 MG ORAL CAPSULE DELAYED RELEASE 1 po qd CHOLINE FENOFIBRATE 16093527217 No Longer Active Tu Landeros MD Active AMBIEN 10 MG ORAL TABLET 1 tab by mouth at bedtime as needed for sleep 06/10 AMBIEN 10 MG ORAL TABLET 622860 ZOLPIDEM TARTRATE Inactive METFORMIN HCL 500 MG ORAL TABLET 1 PO BID METFORMIN HCL 500 MG ORAL TABLET 331567 METFORMIN HCL Inactive REGLAN 10 MG ORAL TABLET 1 po TID PRN Nausea REGLAN 10 MG ORAL TABLET 206317 METOCLOPRAMIDE HCL Inactive MECLIZINE HCL 25 MG ORAL TABLET CHEWABLE 1 four times a day as needed for dizziness MECLIZINE HCL 25 MG ORAL TABLET CHEWABLE 924007 MECLIZINE HCL Inactive SOMA 350 MG ORAL TABLET 1 po q 6 hours prn spasm SOMA 350 MG ORAL TABLET 293129 CARISOPRODOL Inactive MELATONIN 5 MG ORAL TABLET Take one by mouth daily MELATONIN 5 MG ORAL TABLET 978952 MELATONIN Inactive MULTIVITAMINS TABS Take one by mouth daily MULTIVITAMINS TABS MULTIPLE VITAMIN Inactive LORTAB 5-500 MG ORAL TABLET 1/2 to 1 tablet by mouth every 4 hours as needed for pain LORTAB 5-500 MG ORAL TABLET HYDROCODONE- ACETAMINOPHEN Inactive XANAX 0.5 MG ORAL TABLET 1 tablet every 6 hrs prn XANAX 0.5 MG ORAL TABLET 375974 ALPRAZOLAM Inactive AUGMENTIN 875-125 MG ORAL TABLET 1 tab by mouth twice daily with food AUGMENTIN 875-125 MG ORAL TABLET 780495 AMOXICILLIN-POT CLAVULANATE Inactive ALPRAZOLAM 0.5 MG ORAL TABLET 1 tab every 6hrs as needed ALPRAZOLAM 0.5 MG ORAL TABLET 071737 ALPRAZOLAM Inactive SPIRONOLACTONE 25 MG ORAL TABLET 0.5 tablet by mouth daily 09/09 SPIRONOLACTONE 25 MG ORAL TABLET 681190 SPIRONOLACTONE Inactive ACCU-CHEK KEYONA PLUS w/Device KIT [...] times daily as needed ACCU-CHEK FASTCLIX LANCETS 53017060183 LANCETS Inactive TRAMADOL HCL 50 MG ORAL TABLET 1 tablets every 6 hours as needed for pain TRAMADOL HCL 50 MG ORAL TABLET 294740 TRAMADOL HCL Inactive VENLAFAXINE HCL 75 MG ORAL TABLET 1 po BID VENLAFAXINE HCL 75 MG ORAL TABLET 964537 VENLAFAXINE HCL Inactive HYDROCODONE-ACETAMINOPHEN 5-500 MG ORAL TABLET take one po Q 4-6 hours prn HYDROCODONE-ACETAMINOPHEN 5-500 MG ORAL TABLET HYDROCODONE-ACETAMINOPHEN Inactive LORTAB 5-500 MG ORAL TABLET 1/2 to 1 tablet by mouth every 4 hours as needed for pain LORTAB 5-500 MG ORAL TABLET HYDROCODONE- ACETAMINOPHEN Inactive LAMISIL 250 MG ORAL TABLET 1 po qd LAMISIL 250 MG ORAL TABLET 573638 TERBINAFINE HCL Inactive VENLAFAXINE HCL 37.5 MG ORAL TABLET 1 po BID VENLAFAXINE HCL 37.5 MG ORAL TABLET 232596 VENLAFAXINE HCL Inactive CIPRO 500 MG ORAL TABLET 1 tablet by mouth twice daily CIPRO 500 MG ORAL TABLET 746865 CIPROFLOXACIN HCL Inactive VENLAFAXINE HCL 75 MG ORAL TABLET 1 po BID VENLAFAXINE HCL 75 MG ORAL TABLET 922511 VENLAFAXINE HCL Inactive SIMVASTATIN 40 MG ORAL TABLET Take one by mouth daily SIMVASTATIN 40 MG ORAL TABLET 866529 SIMVASTATIN Inactive OMEPRAZOLE 20 MG ORAL TABLET DELAYED RELEASE 1 PO 30 MIN BEFORE 1ST MEAL 2010 OMEPRAZOLE 20 MG ORAL TABLET DELAYED RELEASE 947456 OMEPRAZOLE Inactive FENOFIBRATE 145 MG ORAL TABLET 1 po qd FENOFIBRATE 145 MG ORAL TABLET 545174 FENOFIBRATE Inactive BACTRIM DS 800-160 MG ORAL TABLET 1 bid x 14 day start 09-28-13 BACTRIM DS 800-160 MG ORAL TABLET 552816 SULFAMETHOXAZOLE- TRIMETHOPRIM Inactive B-12 100 MCG ORAL TABLET Take one by mouth daily B-12 100 MCG ORAL TABLET CYANOCOBALAMIN Inactive GABAPENTIN 100 MG ORAL CAPSULE 1 po bid GABAPENTIN 100 MG ORAL CAPSULE 187685 GABAPENTIN Inactive HYDROCODONE-ACETAMINOPHEN 5-325 MG ORAL TABLET 1 tab by mouth every 6 hours as needed for pain HYDROCODONE-ACETAMINOPHEN 5-325 MG ORAL TABLET 943296 HYDROCODONE-ACETAMINOPHEN Inactive CIPRO 500 MG ORAL TABLET 1 bid x 14 days start 09-28-13 CIPRO 500 MG ORAL TABLET 869184 CIPROFLOXACIN HCL Inactive ALIGN 4 MG ORAL [...] SODIUM 50 MG ORAL TABLET DELAYED RELEASE 191705 DICLOFENAC SODIUM Inactive PREDNISONE 20 MG ORAL TABLET 2 tablets once daily for 2 days, then 1 tablet once daily for 2 days PREDNISONE 20 MG ORAL TABLET 951987 PREDNISONE Inactive TRUEDRAW LANCING DEVICE Test twice a day dx 250.0 TRUEDRAW LANCING DEVICE LANCET DEVICES Inactive TRUERESULT BLOOD GLUCOSE w/Device KIT test blood sugar twice daily dx 250.00 TRUERESULT BLOOD GLUCOSE w/Device KIT BLOOD GLUCOSE MONITORING SUPPL Inactive FLONASE 50 MCG/ACT NASAL SUSPENSION 1 spray each nostril twice daily until bottle empty FLONASE 50 MCG/ACT NASAL SUSPENSION 5900427 FLUTICASONE PROPIONATE Inactive VENTOLIN HFA 108 (90 Base) MCG/ACT INHALATION AEROSOL SOLUTION 1-2 puffs every 4 hours if needed for cough/congestion VENTOLIN HFA 108 (90 Base) MCG/ACT INHALATION AEROSOL SOLUTION ALBUTEROL SULFATE Inactive REQUIP 2 MG ORAL TABLET Take one tablet at bedtime prn REQUIP 2 MG ORAL TABLET 711610 ROPINIROLE HCL Inactive SUPER B COMPLEX/VITAMIN C ORAL TABLET 1 qd SUPER B COMPLEX/VITAMIN C ORAL TABLET 74291084425 B COMPLEX-C Inactive TRUEDRAW LANCING DEVICE test blood sugar twice daily dx: 250.00 TRUEDRAW LANCING DEVICE LANCET DEVICES Inactive TRUETEST TEST IN VITRO STRIP test blood sugar twice daily. DX 250.0 TRUETEST TEST IN VITRO STRIP GLUCOSE BLOOD Inactive CYCLOBENZAPRINE HCL 10 MG ORAL TABLET 1 po TID PRN Muscle Spasm CYCLOBENZAPRINE HCL 10 MG ORAL TABLET 925277 CYCLOBENZAPRINE HCL Inactive DICLOFENAC SODIUM 50 MG ORAL TABLET DELAYED RELEASE 1 po BID PRN Pain DICLOFENAC SODIUM 50 MG ORAL TABLET DELAYED RELEASE 410730 DICLOFENAC SODIUM Inactive DICLOFENAC SODIUM 75 MG ORAL TABLET DELAYED RELEASE 1 po BID PRN Pain DICLOFENAC SODIUM 75 MG ORAL TABLET DELAYED RELEASE 604099 DICLOFENAC SODIUM Inactive NASONEX 50 MCG/ACT NASAL SUSPENSION 2 actuations in each nostril q day 07/15 NASONEX 50 MCG/ACT NASAL SUSPENSION 8326983 MOMETASONE FUROATE Inactive GUAIFENESIN ER 600 MG ORAL TABLET EXTENDED RELEASE 12 HOUR 1 twice a day as needed for congestion GUAIFENESIN ER 600 MG ORAL TABLET EXTENDED RELEASE 12 HOUR GUAIFENESIN Inactive AZITHROMYCIN 250 MG ORAL TABLET 2 po qd x 1, then 1 po qd x 4 AZITHROMYCIN 250 MG ORAL TABLET 826422 AZITHROMYCIN Inactive PROMETHAZINE-CODEINE 6.25-10 MG/5ML ORAL SYRUP 5ml po q6hr PRN Cough PROMETHAZINE-CODEINE 6.25-10 MG/5ML ORAL SYRUP 402818 PROMETHAZINE-CODEINE Inactive TRIAMCINOLONE ACETONIDE 0.1 % EXTERNAL OINTMENT Apply to affected areas TID for up to 2 weeks TRIAMCINOLONE ACETONIDE 0.1 % EXTERNAL OINTMENT 0249671 TRIAMCINOLONE ACETONIDE Inactive PREDNISONE 20 MG ORAL TABLET 2 tabs daily for 3 days, 1 tab daily for 3 days, 1/2 tab daily for 2 days PREDNISONE 20 MG ORAL TABLET 299022 PREDNISONE Inactive PREDNISONE 20 MG ORAL TABLET 2 tabs daily for 3 days, 1 tab daily for 3 days, 1/2 tab daily for 2 days PREDNISONE 20 MG ORAL TABLET 725722 PREDNISONE Inactive BACTRIM DS 800-160 MG ORAL TABLET 1 po BID x 7 days BACTRIM DS 800-160 MG ORAL TABLET 884090 SULFAMETHOXAZOLE-TRIMETHOPRIM Inactive ZITHROMAX 250 MG ORAL TABLET 2 po today, then 1 po q days 2-5 ZITHROMAX 250 MG ORAL TABLET 847737 AZITHROMYCIN Inactive PREDNISONE 20 MG ORAL TABLET 2 po qd x 5 days PREDNISONE 20 MG ORAL TABLET 741746 PREDNISONE Inactive Advance Directives Directive Description Start Date DISCUSSED WITH PATIENT -- NO DECISION MADE Immunizations Vaccine Administration Date Value Standard Description Seasonal influenza vaccine, injectable, containing preservative, for > 3 years old (Afluria, FluLaval, Fluzone, Fluvirin, Fluarix, Agriflu(>=18 yo)) Fluzone (>3 yrs.) [[id number]] Influenza, seasonal, injectable influenza immunization (Flu Vax) has been administered 02/22/2012 influenza virus vaccine, unspecified formulation Seasonal influenza vaccine, injectable, containing preservative, for > 3 years old (Afluria, FluLaval, Fluzone, Fluvirin, Fluarix, Agriflu(>=18 yo)) Fluzone (>3 yrs.) [[id number]] Influenza, seasonal, injectable Vital Signs Date Name Value Unit Range Description blood pressure, diastolic 56 mm[Hg] BP ac [...] ... - Chemistry sodium, serum 141 mmol/L 534-979 9501/01/16 carbon dioxide, venous blood 28.3 mmol/L 21.0-32.0 [...] 6.7 % 4.3-6.0 cholesterol, serum 106 mg/dL 363-541 6861/01/16 triglyceride, serum, fasting 173 mg/dL 30-200 HDL [...] 6.4 % 4.3-6.0 sodium, serum 142 mmol/L 007-634 9316/07/16 carbon dioxide, venous blood 29.4 mmol/L 21.0-32.0 [...] Panel - Chemistry cholesterol, serum 170 mg/dL [phone]/07/16 triglyceride, serum, fasting 266 mg/dL 30-200 HDL cholesterol, serum 42 mg/dL 32-60 LDL cholesterol, serum 75 mg/dL 0-130 Encounters Code Encounter Date Provider Facility CPT-72798 Level 3 Est. Patient 10:28:05 CDT Tu Landeros MD [facility] CPT-15708 Level 3 Est. Patient 09:11:32 CDT Tu Landeros MD [facility] CPT-84165 Level 3 Est. Patient 10:13:19 [facility] Lesli Kellogg [facility] CPT-54157 Level 4 Est. Patient 13:42:02 COMMUNITY HEALTH NAVIGATOR Tu Landeros MD [facility] CPT-49513 Level 3 Est. Patient 14:20:36 CDT Tu Landeros MD [facility] CPT-25470 Level 4 Est. Patient 14:28:34 CDT Tu Landeros MD [facility] CPT-01976 Level 3 Est. Patient 13:33:09 CDT Tu Landeros MD [facility] CPT-48771 Level 4 Est. Patient 14:29:21 CDT Tu Landeros MD [facility] CPT-36348 Level 4 Est. Patient 09:08:17 COMMUNITY HEALTH NAVIGATOR Tu Landeros MD [facility] CPT-35525 Level 4 Est. Patient 14:40:19 CDT Tu Landeros MD [facility] CPT-61462 Level 4 Est. Patient 14:06:04 COMMUNITY HEALTH NAVIGATOR Tu Landeros MD [facility] CPT-90330 Level 3 Est. Patient 14:05:18 COMMUNITY HEALTH NAVIGATOR Tu Landeros MD [facility] CPT-39896 Level 3 Est. Patient 10:06:54 COMMUNITY HEALTH NAVIGATOR Miranda Farah [facility] CPT-05607 Level 4 Est. Patient 13:50:18 COMMUNITY HEALTH NAVIGATOR Tu Landeros MD [facility] CPT-64495 Level 3 Est. Patient 10:30:04 CDT Tu Landeros MD [facility] CPT-69581 Level 4 Est. Patient 11:03:38 CDT Tu Landeros MD [facility] CPT-42122 Level 3 Est. Patient 10:20:44 CDT Fab Morales DO [facility] CPT-32734 Level 4 Est. Patient 14:38:57 CDT Tu Landeros MD [facility] CPT-46506 Level 4 Est. Patient 14:27:39 COMMUNITY HEALTH NAVIGATOR Tu Landeros MD [facility] CPT-35910 Level 4 Est. Patient 09:45:25 CDT Tu Landeros MD [facility] CPT-31699 Level 4 Est. Patient 09:05:20 COMMUNITY HEALTH NAVIGATOR Tu Landeros MD [facility] CPT-13984 Level 4 Est. Patient 14:09:06 CDT Tu Landeros MD [facility] CPT-09293 Level 3 Est. Patient 13:36:54 CDT Tu Landeros MD [facility] CPT-80353 Level 3 Est. Patient 08:59:14 CDT Tu Landeros MD [facility] CPT-17973 Level 3 Est. Patient 13:48:35 CDT Fab Morales DO [facility] CPT-88993 Level 4 Est. Patient 10:05:48 CDT Tu Landeros MD [facility] CPT-77972 Level 3 Est. Patient 13:38:42 CDT Marek BANKS [facility] CPT-00447 Level 5 Est. Patient 08:08:39 CDT Jerrica FRANCIS [facility] CPT-60560 Level 4 Est. Patient 14:23:38 CDT Tu Landeros MD [facility] CPT-25620 Level 3 Est. Patient 11:44:04 CDT Tu Landeros MD [facility] CPT-60362 Level 3 Est. Patient 11:03:20 COMMUNITY HEALTH NAVIGATOR Tu Landeros MD [facility] CPT-39519 Level 3 Est. Patient 11:03:14 COMMUNITY HEALTH NAVIGATOR Tu Landeros MD [facility] CPT-18428 Level 3 Est. Patient 12:42:49 CDT Tu Landeros MD [facility] CPT-27314 Level 3 Est. Patient 11:52:06 CDT Tu Landeros MD [facility] CPT-03714 Level 3 Est. Patient 13:58:11 CDT Tu Landeros MD [facility] CPT-66295 Level 3 Est. Patient 17:50:07 CDT Fab Morales DO [facility] [facility] [place] CPT-31089 Level 3 Est. Patient 12:06:29 CDT Elvira Cervantes MD [facility] CPT-57660 Level 3 Est. Patient 15:50:32 CDT Tu Landeros MD [facility] [place] CPT-02865 Level 4 Est. Patient 16:08:29 CDT Tu Landeros MD [facility] [place] CPT-54200 Level 3 Est. Patient 16:04:19 CDT Tu Landeros MD [facility] [place] CPT-30200 Level 3 Est. Patient 11:22:30 COMM[employer]ITY HE[employer] NAVIGATOR Tu Landeros MD [facility] [place] CPT-08828 Level 4 Est. Patient 16:24:02 COMMUNITY HE[employer] NAVIGATOR Tu Landeros MD [facility] [place] CPT-43099 Level 3 Est. 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 CPT-86690 Lipid - LAB USE ONLY 11:14:20 COMM[employer]ITY HE[employer] NAVIGATOR CPT-89581 HGBA1C - LAB USE ONLY 11:14:20 COMM[employer]ITY HEALTH NAVIGATOR CPT-61217 CMP - LAB USE ONLY 11:14:19 COMM[employer]ITY HE[employer] NAVIGATOR CPT-48008 CBC - LAB USE ONLY 11:14:19 COMM[employer]ITY HE[employer] NAVIGATOR CPT-81222 Venipuncture Draw Fee 11:14:18 COMM[employer]ITY HE[employer] NAVIGATOR CPT-53095 First Vx - Ix admin for Medicare patients 16:46:52 CDT CPT-02593 Fluzone Preservative Free Intramuscular Suspension 16:46 :51 CDT CPT-66061 CBC - LAB USE ONLY 17:14:46 CDT CPT-40522 HGBA1C - LAB USE ONLY 17:14:46 CDT CPT-20097 Venipuncture Draw Fee 17:14:46 CDT CPT-G0438 Initial Annual Wellness Exam 14:13:04 CDT CPT-67933 Breathing Tx 10:06:54 [employer] NAVIGATOR CPT-64502 Postop F/U Visit 10:02:45 CDT CPT-LR Lesion Removal 09:02:56 CDT CPT-JTINJ Asp/Joint Injection 15:51:27 COMM[employer]ITY HE[employer] NAVIGATOR CPT-OV Office Visit 15:52:02 COMM[employer]ITY HE[employer] NAVIGATOR CPT-OV Office Visit 15:45:11 CDT CPT-000 Give Zostavax 14:09:06 CDT CPT-35034 Administration single or combination vaccine inc oral 15 :19:04 CDT CPT-43997 Zoster Vaccine (Zostavax) 15:19:04 CDT CPT-70444 Administration single or combination vaccine inc oral 20 :51:03 CDT CPT-88123 Influenza split virus > age 3 20:51:03 CDT CPT-87256 No Charge Offi Visit 14:52:03 CDT CPT-OV Office Visit 14:57:43 CDT CPT-OV Office Visit 15:22:32 CDT CPT-32103 Administration single or combination vaccine inc oral 11 :33:15 CDT CPT-41006 Influenza split virus > age 3 11:33:15 CDT
--- OUTSIDE RECORDS SUMMARY | 2018-04-25 12:26 | XMS REPORT | Clinical Summary ---
Author Author Admin, SACHI Organization [employer] Address Unknown Phone Unavailable Allergies, Adverse Reactions, [...] CAPSULE 1 po TID PRN Pain INDOMETHACIN 31912545925 Active Tu Landeros MD Active PROMETHAZINE-CODEINE 6.25-10 MG/5ML ORAL SYRUP 5ml po q6hr PRN Cough PROMETHAZINE-CODEINE 32737119317 No Longer Active Tu Landeros MD Active AZITHROMYCIN 250 MG ORAL TABLET 2 po qd x 1, then 1 po qd x 4 AZITHROMYCIN 54130379905 No Longer Active Tu Landeros MD Active GUAIFENESIN ER 600 MG ORAL TABLET EXTENDED RELEASE 12 HOUR 1 twice a day as needed for congestion GUAIFENESIN 39705741272 No Longer Active Tu Landeros MD Active PREDNISONE 20 MG ORAL TABLET 2 po qd x 5 days PREDNISONE 53917005087 No Longer Active Tu Landeros MD Active FLUTICASONE PROPIONATE 50 MCG/ACT NASAL SUSPENSION 2 sprays/nostril qd PRN Congestion/Allergies FLUTICASONE PROPIONATE 52690806861 Active Tu Landeros MD Active NASONEX 50 MCG/ACT NASAL SUSPENSION 2 actuations in each nostril q day 07/15 MOMETASONE FUROATE 75479500905 No Longer Active Tu Landeros MD Active MAGNESIUM OXIDE 400 MG ORAL TABLET 1 po BID MAGNESIUM OXIDE 79376024355 Active Tu Landeros MD Active SIMVASTATIN 20 MG ORAL TABLET 0.5 po qHS SIMVASTATIN 54094412901 Active Tu Landeros MD Active DICLOFENAC SODIUM 75 MG ORAL TABLET DELAYED RELEASE 1 po BID PRN Pain DICLOFENAC SODIUM 80982761150 No Longer Active Tu Landeros MD Active GABAPENTIN 100 MG ORAL CAPSULE 1 po TID GABAPENTIN 61605195740 Active Tu Landeros MD Active DICLOFENAC SODIUM 50 MG ORAL TABLET DELAYED RELEASE 1 po BID PRN Pain DICLOFENAC SODIUM 71519401434 No Longer Active Tu Landeros MD Active CYCLOBENZAPRINE HCL 10 MG ORAL TABLET 1 po TID PRN Muscle Spasm CYCLOBENZAPRINE HCL 20490349697 No Longer Active Tu Landeros MD Active INVOKANA 100 MG ORAL TABLET 1 po qd CANAGLIFLOZIN 06801362920 Active José Luis Becerra MD Active GLIPIZIDE 5 MG ORAL TABLET 1 po qd GLIPIZIDE 42072847355 No Longer Active Tu Landeros MD Active VENLAFAXINE HCL 75 MG ORAL TABLET 1 po BID VENLAFAXINE HCL 85707169609 Active Tu Landeros MD Active GLIMEPIRIDE 1 MG ORAL TABLET 1 po qd GLIMEPIRIDE 91239477123 No Longer Active Tu Landeros MD Active TRUE METRIX BLOOD GLUCOSE TEST IN VITRO STRIP Test blood sugar BID Dx: E11.9 GLUCOSE BLOOD 05696555751 Active Tu Landeros MD Active TRUE METRIX AIR GLUCOSE METER w/Device KIT Test blood glucose BID Dx: E11.9 BLOOD GLUCOSE MONITORING SUPPL 02112145586 Active Tu Landeros MD Active TRUETEST TEST IN VITRO STRIP test blood sugar twice daily. DX 250.0 GLUCOSE BLOOD 00924543728 No Longer Active Mirna Stanley LPN Active TRUEDRAW LANCING DEVICE test blood sugar twice daily dx: 250.00 LANCET DEVICES 96141888245 No Longer Active Mirna Stanley LPN Active ENALAPRIL MALEATE 20 MG ORAL TABLET 2 po qd ENALAPRIL MALEATE 69491643152 Active Tu Landeros MD Active SUPER B COMPLEX/VITAMIN C ORAL TABLET 1 qd B COMPLEX- C 77982217579 No Longer Active Tu Landeros MD Active ASPIRIN EC 81 MG ORAL TABLET DELAYED RELEASE 1 po qd ASPIRIN 16733434384 Active Tu Landeros MD Active GLUCOSAMINE 500 MG TABS 2 po qd GLUCOSAMINE Active Tu Landeros MD Active FISH OIL 1000 MG ORAL CAPSULE 1 po qd OMEGA-3 FATTY ACIDS 22953293377 Active Tu Landeros MD Active METFORMIN HCL 1000 MG ORAL TABLET 1 po BID METFORMIN HCL 66380303182 Active Tu Landeros MD Active KLOR-CON 10 10 MEQ ORAL TABLET EXTENDED RELEASE 2 po qd POTASSIUM CHLORIDE 23795195607 Active Tu Landeros MD Active FUROSEMIDE 40 MG ORAL TABLET 1 po qd FUROSEMIDE 84966582508 Active Tu Landeros MD Active REQUIP 2 MG ORAL TABLET 1 po qHS PRN Restless legs ROPINIROLE HCL 30979797326 Active Tu Landeros MD Active REQUIP 2 MG ORAL TABLET Take one tablet at bedtime prn ROPINIROLE HCL 52002451819 No Longer Active Tu Landeros MD Active VENTOLIN HFA 108 (90 Base) MCG/ACT INHALATION AEROSOL SOLUTION 1-2 puffs every 4 hours if needed for cough/congestion ALBUTEROL SULFATE 53705214730 No Longer Active Ambika Aden APRN Active ZITHROMAX 250 MG ORAL TABLET 2 po today, then 1 po q days 2-5 AZITHROMYCIN 64067014871 No Longer Active Miranda Farah APRN Active FLONASE 50 MCG/ACT NASAL SUSPENSION 1 spray each nostril twice daily until bottle empty FLUTICASONE PROPIONATE 09980383419 No Longer Active Tu Landeros MD Active COLACE 100 MG ORAL CAPSULE 1 po BID PRN Constipation DOCUSATE SODIUM 09643481782 Active Tu Landeros MD Active TRUERESULT BLOOD GLUCOSE w/Device KIT test blood sugar twice daily dx 250.00 BLOOD GLUCOSE MONITORING SUPPL 84841807671 No Longer Active Tu Landeros MD Active TRUEDRAW LANCING DEVICE Test twice a day dx 250.0 LANCET DEVICES 50796198426 No Longer Active Tu Landeros MD Active PREDNISONE 20 MG ORAL TABLET 2 tablets once daily for 2 days, then 1 tablet once daily for 2 days PREDNISONE 28443860633 No Longer Active Tu Landeros MD Active DICLOFENAC SODIUM 50 MG ORAL TABLET DELAYED RELEASE 1 tablet by mouth three times a day as needed DICLOFENAC SODIUM 54083522322 No Longer Active Fab Morales DO Active EMBRACE BLOOD GLUCOSE TEST IN VITRO STRIP test blood sugar twice daily DX 250.0 GLUCOSE BLOOD 21701040472 No Longer Active Tu Landeros MD Active TRUETEST TEST IN VITRO STRIP test blood sugar three times daily dx: 250.00 GLUCOSE BLOOD 40543276363 No Longer Active Suzebianca VOGEL Active TRUERESULT BLOOD GLUCOSE w/Device KIT use to test blood sugar tid dx: 250.00 BLOOD GLUCOSE MONITORING SUPPL 42524928691 No Longer Active Suze Corey NURYSA Active ALIGN 4 MG ORAL CAPSULE 1 tid PROBIOTIC PRODUCT 39581480819 No Longer Active Shaun Sy MD Active CIPRO 500 MG ORAL TABLET 1 bid x 14 days start 09-28-13 CIPROFLOXACIN HCL 64033009779 No Longer Active Shaun Sy MD Active TRAMADOL HCL 50 MG ORAL TABLET 1-2 tablets every 6 hours as needed for pain TRAMADOL HCL 18473721449 Active Tu Landeros MD Active HYDROCODONE-ACETAMINOPHEN 5-325 MG ORAL TABLET 1 tab by mouth every 6 hours as needed for pain HYDROCODONE-ACETAMINOPHEN 88138343966 No Longer Active Tu Landeros MD Active OMEPRAZOLE 20 MG ORAL CAPSULE DELAYED RELEASE 1 po q a.m. OMEPRAZOLE 27705130872 Active Tu Landeros MD Active GABAPENTIN 100 MG ORAL CAPSULE 1 po bid GABAPENTIN 70191534430 No Longer Active Tu Landeros MD Active B-12 100 MCG ORAL TABLET Take one by mouth daily CYANOCOBALAMIN 85615475056 No Longer Active Tu Landeros MD Active BACTRIM DS 800-160 MG ORAL TABLET 1 bid x 14 day start 09-28-13 SULFAMETHOXAZOLE-TRIMETHOPRIM 02212562425 No Longer Active Tu Landeros MD Active CARVEDILOL 12.5 MG ORAL TABLET 1 po BID CARVEDILOL 72600565058 Active Tu Landeros MD Active TRILIPIX 135 MG ORAL CAPSULE DELAYED RELEASE 1 q hs CHOLINE FENOFIBRATE 30158646803 Active Tu Landeros MD Active FENOFIBRATE 145 MG ORAL TABLET 1 po qd FENOFIBRATE 97944580052 No Longer Active JASPREET Perez Active OMEPRAZOLE 20 MG ORAL TABLET DELAYED RELEASE 1 PO 30 MIN BEFORE 1ST MEAL 2010 OMEPRAZOLE 44648110526 No Longer Active JASPREET Perez Active SIMVASTATIN 40 MG ORAL TABLET Take one by mouth daily SIMVASTATIN 04918832036 No Longer Active JASPREET Perez Active VENLAFAXINE HCL 75 MG ORAL TABLET 1 po BID VENLAFAXINE HCL 85954928972 No Longer Active JASPREET Perez Active CIPRO 500 MG ORAL TABLET 1 tablet by mouth twice daily CIPROFLOXACIN HCL 92947203704 No Longer Active Tu Landeros MD Active VENLAFAXINE HCL 37.5 MG ORAL TABLET 1 po BID VENLAFAXINE HCL 69595593624 No Longer Active Suze Nicole A Active LAMISIL 250 MG ORAL TABLET 1 po qd TERBINAFINE HCL 38082699115 No Longer Active Tu Landeros MD Active LORTAB 5-500 MG ORAL TABLET 1/2 to 1 tablet by mouth every 4 hours as needed for pain HYDROCODONE-ACETAMINOPHEN 72801543611 No Longer Active Tu Landeros MD Active HYDROCODONE-ACETAMINOPHEN 5-500 MG ORAL TABLET take one po Q 4-6 hours prn HYDROCODONE-ACETAMINOPHEN 94797622952 No Longer Active Tu Landeros MD Active BACTRIM DS 800-160 MG ORAL TABLET 1 po BID x 7 days SULFAMETHOXAZOLE-TRIMETHOPRIM 29301579619 No Longer Active Tu Landeros MD Active VENLAFAXINE HCL 75 MG ORAL TABLET 1 po BID VENLAFAXINE HCL 65429144046 No Longer Active Elvira Cervantes MD PhD Active TRAMADOL HCL 50 MG ORAL TABLET 1 tablets every 6 hours as needed for pain TRAMADOL HCL 46371407761 No Longer Active Tu Landeros MD Active ACCU-CHEK FASTCLIX LANCETS Use to check bloodsugar three times daily as needed LANCETS 17697974094 No Longer Active Tu Landeros MD Active ACCU-CHEK KEYONA PLUS IN VITRO STRIP Use for testing bloodsugars three times daily as needed GLUCOSE BLOOD 28275865412 No Longer Active Tu Landeros MD Active ACCU-CHEK KEYONA PLUS w/Device KIT Use for testing bloodsugars three times daily as needed BLOOD GLUCOSE MONITORING SUPPL 09737472149 No Longer Active Tu Landeros MD Active SPIRONOLACTONE 25 MG ORAL TABLET 0.5 tablet by mouth daily 09/09 SPIRONOLACTONE 09467711734 No Longer Active Tu Landeros MD Active ALPRAZOLAM 0.5 MG ORAL TABLET 1 tab every 6hrs as needed ALPRAZOLAM 04481282455 No Longer Active Tu Landeros MD Active AUGMENTIN 875-125 MG ORAL TABLET 1 tab by mouth twice daily with food AMOXICILLIN-POT CLAVULANATE 10248755864 No Longer Active Tu Landeros MD Active PREDNISONE 20 MG ORAL TABLET 2 tabs daily for 3 days, 1 tab daily for 3 days, 1/2 tab daily for 2 days PREDNISONE 16102511465 No Longer Active Tu Landeros MD Active XANAX 0.5 MG ORAL TABLET 1 tablet every 6 hrs prn ALPRAZOLAM 85387192162 No Longer Active Tu Landeros MD Active PREDNISONE 20 MG ORAL TABLET 2 tabs daily for 3 days, 1 tab daily for 3 days, 1/2 tab daily for 2 days PREDNISONE 43787054939 No Longer Active Tu Landeros MD Active TRIAMCINOLONE ACETONIDE 0.1 % EXTERNAL OINTMENT Apply to affected areas TID for up to 2 weeks TRIAMCINOLONE ACETONIDE 65693021548 No Longer Active Tu Landeros MD Active LORTAB 5-500 MG ORAL TABLET 1/2 to 1 tablet by mouth every 4 hours as needed for pain HYDROCODONE-ACETAMINOPHEN 91596163845 No Longer Active Tu Landeros MD Active MULTIVITAMINS TABS Take one by mouth daily MULTIPLE VITAMIN 73962431711 No Longer Active Tu Landeros MD Active MELATONIN 5 MG ORAL TABLET Take one by mouth daily MELATONIN 69152048025 No Longer Active Tu Landeros MD Active SOMA 350 MG ORAL TABLET 1 po q 6 hours prn spasm CARISOPRODOL 93937097415 No Longer Active Tu Landeros MD Active MECLIZINE HCL 25 MG ORAL TABLET CHEWABLE 1 four times a day as needed for dizziness MECLIZINE HCL 14567494984 No Longer Active Fab Morales DO Active ANGEL BREEZE 2 TEST IN VITRO DISK test tid prn GLUCOSE BLOOD 58050387276 No Longer Active Negra Scott MICHAEL Active REGLAN 10 MG ORAL TABLET 1 po TID PRN Nausea METOCLOPRAMIDE HCL 45965013497 No Longer Active Tu Landeros MD Active METFORMIN HCL 500 MG ORAL TABLET 1 PO BID METFORMIN HCL 78125727500 No Longer Active Tu Landeros MD Active AMBIEN 10 MG ORAL TABLET 1 tab by mouth at bedtime as needed for sleep 06/10 ZOLPIDEM TARTRATE 26934993956 No Longer Active Tu Landeros MD Active FLUOXETINE HCL 40 MG ORAL CAPSULE 1 po q day FLUOXETINE HCL 20263742567 No Longer Active Mayra Terry Active TRILIPIX 135 MG ORAL CAPSULE DELAYED RELEASE 1 po qd CHOLINE FENOFIBRATE 15465407319 No Longer Active Tu Landeros MD Active AMBIEN 10 MG ORAL TABLET 1 tab by mouth at bedtime as needed for sleep 06/10 AMBIEN 10 MG ORAL TABLET 679311 ZOLPIDEM TARTRATE Inactive METFORMIN HCL 500 MG ORAL TABLET 1 PO BID METFORMIN HCL 500 MG ORAL TABLET 443221 METFORMIN HCL Inactive REGLAN 10 MG ORAL TABLET 1 po TID PRN Nausea REGLAN 10 MG ORAL TABLET 003511 METOCLOPRAMIDE HCL Inactive MECLIZINE HCL 25 MG ORAL TABLET CHEWABLE 1 four times a day as needed for dizziness MECLIZINE HCL 25 MG ORAL TABLET CHEWABLE 810533 MECLIZINE HCL Inactive SOMA 350 MG ORAL TABLET 1 po q 6 hours prn spasm SOMA 350 MG ORAL TABLET 765749 CARISOPRODOL Inactive MELATONIN 5 MG ORAL TABLET Take one by mouth daily MELATONIN 5 MG ORAL TABLET 151315 MELATONIN Inactive MULTIVITAMINS TABS Take one by mouth daily MULTIVITAMINS TABS MULTIPLE VITAMIN Inactive LORTAB 5-500 MG ORAL TABLET 1/2 to 1 tablet by mouth every 4 hours as needed for pain LORTAB 5-500 MG ORAL TABLET HYDROCODONE- ACETAMINOPHEN Inactive XANAX 0.5 MG ORAL TABLET 1 tablet every 6 hrs prn XANAX 0.5 MG ORAL TABLET 997303 ALPRAZOLAM Inactive AUGMENTIN 875-125 MG ORAL TABLET 1 tab by mouth twice daily with food AUGMENTIN 875-125 MG ORAL TABLET 050434 AMOXICILLIN-POT CLAVULANATE Inactive ALPRAZOLAM 0.5 MG ORAL TABLET 1 tab every 6hrs as needed ALPRAZOLAM 0.5 MG ORAL TABLET 433603 ALPRAZOLAM Inactive SPIRONOLACTONE 25 MG ORAL TABLET 0.5 tablet by mouth daily 09/09 SPIRONOLACTONE 25 MG ORAL TABLET 188947 SPIRONOLACTONE Inactive ACCU-CHEK KEYONA PLUS w/Device KIT [...] times daily as needed ACCU-CHEK FASTCLIX LANCETS 13658893793 LANCETS Inactive TRAMADOL HCL 50 MG ORAL TABLET 1 tablets every 6 hours as needed for pain TRAMADOL HCL 50 MG ORAL TABLET 142551 TRAMADOL HCL Inactive VENLAFAXINE HCL 75 MG ORAL TABLET 1 po BID VENLAFAXINE HCL 75 MG ORAL TABLET 854378 VENLAFAXINE HCL Inactive HYDROCODONE-ACETAMINOPHEN 5-500 MG ORAL TABLET take one po Q 4-6 hours prn HYDROCODONE-ACETAMINOPHEN 5-500 MG ORAL TABLET HYDROCODONE-ACETAMINOPHEN Inactive LORTAB 5-500 MG ORAL TABLET 1/2 to 1 tablet by mouth every 4 hours as needed for pain LORTAB 5-500 MG ORAL TABLET HYDROCODONE- ACETAMINOPHEN Inactive LAMISIL 250 MG ORAL TABLET 1 po qd LAMISIL 250 MG ORAL TABLET 114017 TERBINAFINE HCL Inactive VENLAFAXINE HCL 37.5 MG ORAL TABLET 1 po BID VENLAFAXINE HCL 37.5 MG ORAL TABLET 389336 VENLAFAXINE HCL Inactive CIPRO 500 MG ORAL TABLET 1 tablet by mouth twice daily CIPRO 500 MG ORAL TABLET 742125 CIPROFLOXACIN HCL Inactive VENLAFAXINE HCL 75 MG ORAL TABLET 1 po BID VENLAFAXINE HCL 75 MG ORAL TABLET 088881 VENLAFAXINE HCL Inactive SIMVASTATIN 40 MG ORAL TABLET Take one by mouth daily SIMVASTATIN 40 MG ORAL TABLET 186615 SIMVASTATIN Inactive OMEPRAZOLE 20 MG ORAL TABLET DELAYED RELEASE 1 PO 30 MIN BEFORE 1ST MEAL 2010 OMEPRAZOLE 20 MG ORAL TABLET DELAYED RELEASE 273721 OMEPRAZOLE Inactive FENOFIBRATE 145 MG ORAL TABLET 1 po qd FENOFIBRATE 145 MG ORAL TABLET 249582 FENOFIBRATE Inactive BACTRIM DS 800-160 MG ORAL TABLET 1 bid x 14 day start 09-28-13 BACTRIM DS 800-160 MG ORAL TABLET 021881 SULFAMETHOXAZOLE- TRIMETHOPRIM Inactive B-12 100 MCG ORAL TABLET Take one by mouth daily B-12 100 MCG ORAL TABLET CYANOCOBALAMIN Inactive GABAPENTIN 100 MG ORAL CAPSULE 1 po bid GABAPENTIN 100 MG ORAL CAPSULE 387982 GABAPENTIN Inactive HYDROCODONE-ACETAMINOPHEN 5-325 MG ORAL TABLET 1 tab by mouth every 6 hours as needed for pain HYDROCODONE-ACETAMINOPHEN 5-325 MG ORAL TABLET 730326 HYDROCODONE-ACETAMINOPHEN Inactive CIPRO 500 MG ORAL TABLET 1 bid x 14 days start 09-28-13 CIPRO 500 MG ORAL TABLET 452871 CIPROFLOXACIN HCL Inactive ALIGN 4 MG ORAL [...] SODIUM 50 MG ORAL TABLET DELAYED RELEASE 970189 DICLOFENAC SODIUM Inactive PREDNISONE 20 MG ORAL TABLET 2 tablets once daily for 2 days, then 1 tablet once daily for 2 days PREDNISONE 20 MG ORAL TABLET 114831 PREDNISONE Inactive TRUEDRAW LANCING DEVICE Test twice a day dx 250.0 TRUEDRAW LANCING DEVICE LANCET DEVICES Inactive TRUERESULT BLOOD GLUCOSE w/Device KIT test blood sugar twice daily dx 250.00 TRUERESULT BLOOD GLUCOSE w/Device KIT BLOOD GLUCOSE MONITORING SUPPL Inactive FLONASE 50 MCG/ACT NASAL SUSPENSION 1 spray each nostril twice daily until bottle empty FLONASE 50 MCG/ACT NASAL SUSPENSION 1623103 FLUTICASONE PROPIONATE Inactive VENTOLIN HFA 108 (90 Base) MCG/ACT INHALATION AEROSOL SOLUTION 1-2 puffs every 4 hours if needed for cough/congestion VENTOLIN HFA 108 (90 Base) MCG/ACT INHALATION AEROSOL SOLUTION ALBUTEROL SULFATE Inactive REQUIP 2 MG ORAL TABLET Take one tablet at bedtime prn REQUIP 2 MG ORAL TABLET 979946 ROPINIROLE HCL Inactive SUPER B COMPLEX/VITAMIN C ORAL TABLET 1 qd SUPER B COMPLEX/VITAMIN C ORAL TABLET 88957602589 B COMPLEX-C Inactive TRUEDRAW LANCING DEVICE test blood sugar twice daily dx: 250.00 TRUEDRAW LANCING DEVICE LANCET DEVICES Inactive TRUETEST TEST IN VITRO STRIP test blood sugar twice daily. DX 250.0 TRUETEST TEST IN VITRO STRIP GLUCOSE BLOOD Inactive CYCLOBENZAPRINE HCL 10 MG ORAL TABLET 1 po TID PRN Muscle Spasm CYCLOBENZAPRINE HCL 10 MG ORAL TABLET 880141 CYCLOBENZAPRINE HCL Inactive DICLOFENAC SODIUM 50 MG ORAL TABLET DELAYED RELEASE 1 po BID PRN Pain DICLOFENAC SODIUM 50 MG ORAL TABLET DELAYED RELEASE 773258 DICLOFENAC SODIUM Inactive DICLOFENAC SODIUM 75 MG ORAL TABLET DELAYED RELEASE 1 po BID PRN Pain DICLOFENAC SODIUM 75 MG ORAL TABLET DELAYED RELEASE 019339 DICLOFENAC SODIUM Inactive NASONEX 50 MCG/ACT NASAL SUSPENSION 2 actuations in each nostril q day 07/15 NASONEX 50 MCG/ACT NASAL SUSPENSION 7784363 MOMETASONE FUROATE Inactive GUAIFENESIN ER 600 MG ORAL TABLET EXTENDED RELEASE 12 HOUR 1 twice a day as needed for congestion GUAIFENESIN ER 600 MG ORAL TABLET EXTENDED RELEASE 12 HOUR GUAIFENESIN Inactive AZITHROMYCIN 250 MG ORAL TABLET 2 po qd x 1, then 1 po qd x 4 AZITHROMYCIN 250 MG ORAL TABLET 202290 AZITHROMYCIN Inactive PROMETHAZINE-CODEINE 6.25-10 MG/5ML ORAL SYRUP 5ml po q6hr PRN Cough PROMETHAZINE-CODEINE 6.25-10 MG/5ML ORAL SYRUP 117063 PROMETHAZINE-CODEINE Inactive TRIAMCINOLONE ACETONIDE 0.1 % EXTERNAL OINTMENT Apply to affected areas TID for up to 2 weeks TRIAMCINOLONE ACETONIDE 0.1 % EXTERNAL OINTMENT 6502870 TRIAMCINOLONE ACETONIDE Inactive PREDNISONE 20 MG ORAL TABLET 2 tabs daily for 3 days, 1 tab daily for 3 days, 1/2 tab daily for 2 days PREDNISONE 20 MG ORAL TABLET 315655 PREDNISONE Inactive PREDNISONE 20 MG ORAL TABLET 2 tabs daily for 3 days, 1 tab daily for 3 days, 1/2 tab daily for 2 days PREDNISONE 20 MG ORAL TABLET 165616 PREDNISONE Inactive BACTRIM DS 800-160 MG ORAL TABLET 1 po BID x 7 days BACTRIM DS 800-160 MG ORAL TABLET 268143 SULFAMETHOXAZOLE-TRIMETHOPRIM Inactive ZITHROMAX 250 MG ORAL TABLET 2 po today, then 1 po q days 2-5 ZITHROMAX 250 MG ORAL TABLET 496321 AZITHROMYCIN Inactive PREDNISONE 20 MG ORAL TABLET 2 po qd x 5 days PREDNISONE 20 MG ORAL TABLET 590772 PREDNISONE Inactive Advance Directives Directive Description Start Date DISCUSSED WITH PATIENT -- NO DECISION MADE Immunizations Vaccine Administration Date Value Standard Description Seasonal influenza vaccine, injectable, containing preservative, for > 3 years old (Afluria, FluLaval, Fluzone, Fluvirin, Fluarix, Agriflu(>=18 yo)) Fluzone (>3 yrs.) [[id number]] Influenza, seasonal, injectable influenza immunization (Flu Vax) has been administered 02/22/2012 influenza virus vaccine, unspecified formulation Seasonal influenza vaccine, injectable, containing preservative, for > 3 years old (Afluria, FluLaval, Fluzone, Fluvirin, Fluarix, Agriflu(>=18 yo)) Fluzone (>3 yrs.) [[id number]] Influenza, seasonal, injectable Vital Signs Date Name [...] ... - Chemistry sodium, serum 141 mmol/L 834-997 5141/01/16 carbon dioxide, venous blood 28.3 mmol/L 21.0-32.0 [...] 6.7 % 4.3-6.0 cholesterol, serum 106 mg/dL 904-031 5248/01/16 triglyceride, serum, fasting 173 mg/dL 30-200 HDL [...] microalbumin, urine 10 mg/L 0-19 Lab Report: HGBA1C - Chemistry hemoglobin A1C, blood, as % of total hemoglobin 6.5 % 4.3-6.0 Encounters Code Encounter Date Provider Facility CPT-43229 Level 3 Est. Patient 10:28:05 CDT Tu Landeros MD [facility] CPT-63009 Level 3 Est. Patient 09:11:32 CDT Tu Landeros MD [facility] CPT-30953 Level 3 Est. Patient 10:13:19 CODE NUMBER STAMPER Lesli Kellogg APRN [facility] CPT-48398 Level 4 Est. Patient 13:42:02 CODE NUMBER STAMPER Tu Landeros MD [facility] CPT-71177 Level 3 Est. Patient 14:20:36 CDT Tu Landeros MD [facility] CPT-89952 Level 4 Est. Patient 14:28:34 CDT Tu Landeros MD [facility] CPT-77860 Level 3 Est. Patient 13:33:09 CDT Tu Landeros MD [facility] CPT-59023 Level 4 Est. Patient 14:29:21 CDT Tu Landeros MD [facility] CPT-20986 Level 4 Est. Patient 09:08:17 CODE NUMBER STAMPER Tu Landeros MD [facility] CPT-11162 Level 4 Est. Patient 14:40:19 CDT Tu Landeros MD [facility] CPT-19785 Level 4 Est. Patient 14:06:04 CODE NUMBER STAMPER Tu Landeros MD [facility] CPT-04541 Level 3 Est. Patient 14:05:18 CODE NUMBER STAMPER Tu Landeros MD [facility] CPT-90429 Level 3 Est. Patient 10:06:54 CODE NUMBER STAMPER Miranda Farah APRN [facility] CPT-29234 Level 4 Est. Patient 13:50:18 CODE NUMBER STAMPER Tu Landeros MD [facility] CPT-98349 Level 3 Est. Patient 10:30:04 CDT Tu Landeros MD [facility] CPT-10645 Level 4 Est. Patient 11:03:38 CDT Tu Landeros MD [facility] CPT-58911 Level 3 Est. Patient 10:20:44 CDT Fab Morales DO [facility] CPT-72436 Level 4 Est. Patient 14:38:57 CDT Tu Landeros MD [facility] CPT-56874 Level 4 Est. Patient 14:27:39 CODE NUMBER STAMPER Tu Landeros MD [facility] CPT-11272 Level 4 Est. Patient 09:45:25 CDT Tu Landeros MD [facility] CPT-68540 Level 4 Est. Patient 09:05:20 CODE NUMBER STAMPER Tu Landeros MD [facility] CPT-82277 Level 4 Est. Patient 14:09:06 CDT Tu Landeros MD [facility] CPT-74735 Level 3 Est. Patient 13:36:54 CDT Tu Landeros MD [facility] CPT-88420 Level 3 Est. Patient 08:59:14 CDT Tu Landeros MD [facility] CPT-52730 Level 3 Est. Patient 13:48:35 CDT Fab Morales DO [facility] CPT-70401 Level 4 Est. Patient 10:05:48 CDT Tu Landeros MD [facility] CPT-41560 Level 3 Est. Patient 13:38:42 CDT Marek BANKS [facility] CPT-05186 Level 5 Est. Patient 08:08:39 CDT Piyushrichajanelle Dawsontay FRANCIS [facility] CPT-07705 Level 4 Est. Patient 14:23:38 CDT Tu Landeros MD [facility] CPT-48196 Level 3 Est. Patient 11:44:04 CDT Tu Landeros MD [facility] CPT-16997 Level 3 Est. Patient 11:03:20 CODE NUMBER STAMPER Tu Landeros MD [facility] CPT-25981 Level 3 Est. Patient 11:03:14 CODE NUMBER STAMPER Tu Landeros MD [facility] CPT-85297 Level 3 Est. Patient 12:42:49 CDT Tu Landeros MD [facility] CPT-44173 Level 3 Est. Patient 11:52:06 CDT Tu Landeros MD [facility] CPT-64865 Level 3 Est. Patient 13:58:11 CDT Tu Landeros MD [facility] CPT-62794 Level 3 Est. Patient 17:50:07 CDT Fab Morales DO [facility] CPT-72385 Level 3 Est. Patient 12:06:29 CDT Elvira Cervantes MD PhD [facility] CPT-76112 Level 3 Est. Patient 15:50:32 CDT Tu Landeros MD [facility] CPT-10663 Level 4 Est. Patient 16:08:29 CDT Tu Landeros MD [facility] CPT-41797 Level 3 Est. Patient 16:04:19 CDT Tu Landeros MD [facility] CPT-40134 Level 3 Est. Patient 11:22:30 CODE NUMBER STAMPER Tu Landeros MD [facility] CPT-73463 Level 4 Est. Patient 16:24:02 CODE NUMBER STAMPER Tu Landeros MD [facility] CPT-56519 Level 3 Est. Patient 17:21:23 CODE NUMBER STAMPER Tu Landeros MD [facility] Procedures Code Procedure Name Date Entry Date Standard Description CPT-32031 Shoulder, right, comp min 2V - XRAY USE ONLY 13:50:22 CDT CPT-G0009 Administration of Pneumococcal Vaccine 15:08:26 CDT CPT-61664 Prevnar 13 Intramuscular Suspension 15:08:26 CDT 10/08 CPT-G0439 [facility] Annual Wellness Exam 14:29:22 CDT CPT-25020 Venipuncture Draw Fee 13:15:35 CDT CPT-31048 Magnesium - LAB USE ONLY 11:14:20 CODE NUMBER STAMPER CPT-62796 Lipid - LAB USE ONLY 11:14:20 CODE NUMBER STAMPER CPT-75913 HGBA1C - LAB USE ONLY 11:14:20 CODE NUMBER STAMPER CPT-87084 CMP - LAB USE ONLY 11:14:19 CODE NUMBER STAMPER CPT-15148 CBC - LAB USE ONLY 11:14:19 CODE NUMBER STAMPER CPT-96916 Venipuncture Draw Fee 11:14:18 CODE NUMBER STAMPER CPT-44687 First Vx - Ix admin for Medicare patients 16:46:52 CDT CPT-26926 Fluzone Preservative Free Intramuscular Suspension 16:46 :51 CDT CPT-64262 CBC - LAB USE ONLY 17:14:46 CDT CPT-07400 HGBA1C - LAB USE ONLY 17:14:46 CDT CPT-88861 Venipuncture Draw Fee 17:14:46 CDT CPT-G0438 Initial Annual Wellness Exam 14:13:04 CDT CPT-92391 Breathing Tx 10:06:54 CODE NUMBER STAMPER CPT-94732 Postop F/U Visit 10:02:45 CDT CPT-LR Lesion Removal 09:02:56 CDT CPT-JTINJ Asp/Joint Injection 15:51:27 CODE NUMBER STAMPER CPT-OV Office Visit 15:52:02 CODE NUMBER STAMPER CPT-OV Office Visit 15:45:11 CDT CPT-000 Give Zostavax 14:09:06 CDT CPT-98502 Administration single or combination vaccine inc oral 15 :19:04 CDT CPT-20612 Zoster Vaccine (Zostavax) 15:19:04 CDT CPT-20863 Administration single or combination vaccine inc oral 20 :51:03 CDT CPT-89336 Influenza split virus > age 3 20:51:03 CDT CPT-07096 No Charge Offi Visit 14:52:03 CDT CPT-OV Office Visit 14:57:43 CDT CPT-OV Office Visit 15:22:32 CDT CPT-54553 Administration single or combination vaccine inc oral 11 :33:15 CDT CPT-80792 Influenza split virus > age 3 11:33:15 CDT
--- OUTSIDE RECORDS SUMMARY | 2018-04-25 12:27 | XMS REPORT | Clinical Summary ---
Author Author Admin, SACHI Organization [email or web address] Address Unknown Phone Unavailable Allergies, Adverse Reactions, Alerts Allergy Name Reaction Description Start Date Severity Status Provider DANIELLE migraine h/a Critical Active Luisa COOPEREIN migraine h/a Moderate No Longer Active Tu [...] uncontrolled Diabetes mellitus, type II, controlled 250.00 Active Tu Landeros MD Diabetes mellitus without mention [...] paroxysmal positional vertigo HYPERTENSION 401.1 Inactive Tu Landreos MD Benign essential hypertension Hypertension 401.9 Inactive [...] in joint involving lower leg Osteoarthritis 715.90 Active Tu Landeros MD Osteoarthrosis, unspecified whether [...] eyes, impairment level not further specified 369.20 Active Ambika King AMANDA Moderate or severe vision impairment, both eyes, impairment level not further specified POSTMENOPAUSAL BLEEDING ICD-627.1 Inactive Elvira Cervantes MD PhD HEALTH SCREENING ICD-V70.0 Inactive Elvira Cervantes MD PhD 2011 GASTROENTERITIS ICD-558.9 Inactive Tu Landeros MD DIZZINESS ICD-780.4 Inactive Tu Landeros MD INSOMNIA, PERSISTENT ICD-307.42 Inactive Tu Landeros MD LEG CRAMPS, NOCTURNAL ICD-729.82 Inactive Tu Landeros MD FREQUENCY, URINARY ICD-788.41 Inactive Elvira Cervantes MD PhD FEVER UNSPECIFIED ICD-780.60 Inactive Tu Landeros MD MUSCLE SPASM ICD-728.85 Inactive uT Landeros MD SCIATICA ICD-724.3 Tessa Landeros MD 2012 BENIGN PAROXYSMAL POSITIONAL VERTIGO ICD-386.11 Inactive Tu Landeros MD PARESTHESIA ICD-782.0 Inactive Tu Landeros MD RASH AND OTHER NONSPECIFIC SKIN ERUPTION ICD-782.1 Tessa Landeros MD FATIGUE ICD-780.79 Inactive Tu Landeros MD 2012 CARPAL TUNNEL SYNDROME ICD-354.0 Inactive Tu Landeros MD ARTHRITIS ICD-716.90 Inactive Tu Landeros MD KNEE PAIN ICD-719.46 Tessa Landeros MD CONTUSION OF UNSPECIFIED SITE ICD-924.9 Inactive Tu Landeros MD PRESSURE ULCER UNSPECIFIED SITE ICD-707.00 Tessa Landeros MD LOCALIZED SUPERFICIAL SWELLING MASS OR LUMP ICD-782.2 Tessa Landeros MD SHOULDER PAIN, LEFT ICD-719.41 Tessa Landeros MD ONYCHOMYCOSIS ICD-110.1 Tessa Landeros MD Open wound of abdominal wall, anterior, complicated ICD-879.3 Tessa Landeros MD Open wound of other and unspecified parts of trunk, complicated ICD-879.7 Tessa Landeros MD Knee pain, left, acute ICD-719.46 Tessa Landeros MD Ear pain, bilateral ICD-388.70 Inactive Tu Landeros MD Hot flashes ICD-627.2 Inactive Tu Landeros MD Sebaceous cyst ICD-706.2 Inactive Tu Landeros MD Upper respiratory infection, viral ICD-465.9 Inactive Tu Landeros MD Sinusitis - acute ICD-461.9 Inactive Tu Landeros MD Leg pain, left ICD-729.5 Inactive Tu Landeros MD Upper respiratory infection, viral ICD-465.9 Inactive Shaun Sy MD Medication List Medication Instructions Start Date Stop Date Generic Name NDC Status Provider Patient Instruction REQUIP 2 MG ORAL TABS 1 po qHS PRN Restless legs ROPINIROLE HCL 91499392479 Active Tu Landeros MD Active VENLAFAXINE HCL 37.5 MG TABS 1 po BID VENLAFAXINE HCL 74367378064 Active Tu Landeros MD Active GABAPENTIN 100 MG CAPS 1 po BID GABAPENTIN 82646932110 Active José Luis Becerra MD Active REQUIP 2 MG TABS Take one tablet at bedtime prn ROPINIROLE HCL 59321399622 No Longer Active Tu Landeros MD Active VENTOLIN HFA 108 (90 BASE) MCG/ACT AERS 1-2 puffs every 4 hours if needed for cough/congestion ALBUTEROL SULFATE 87702038907 No Longer Active Ambika Aden APRN Active ZITHROMAX 250 MG TAB 2 po today, then 1 po q days 2-5 AZITHROMYCIN 67644270396 No Longer Active Miranda Suresh APRN Active METFORMIN HCL 1000 MG TABS 1 tablet by mouth twice daily METFORMIN HCL 21544449343 Active Tu Landeros MD Active FLONASE 50 MCG/ACT SUSP 1 spray each nostril twice daily until bottle empty FLUTICASONE PROPIONATE 86523028779 No Longer Active Tu Landeros MD Active COLACE 100 MG CAP 1 po BID PRN Constipation DOCUSATE SODIUM 16655610389 Active Tu Landeros MD Active SIMVASTATIN 40 MG TABS 0.5 tab daily at bedtime SIMVASTATIN 89134750931 Active Tu Landeros MD Active TRUERESULT BLOOD GLUCOSE W/DEVICE KIT test blood sugar twice daily dx 250.00 BLOOD GLUCOSE MONITORING SUPPL 07874097309 No Longer Active Tu Landeros MD Active TRUEDRAW LANCING DEVICE MISC Test twice a day dx 250.0 LANCET DEVICES 36863165326 No Longer Active Tu Landeros MD Active PREDNISONE 20 MG TAB 2 tablets once daily for 2 days, then 1 tablet once daily for 2 days PREDNISONE 83327503472 No Longer Active Tu Landeros MD Active DICLOFENAC SODIUM 50 MG TBEC 1 tablet by mouth three times a day as needed DICLOFENAC SODIUM 15430635341 No Longer Active Fab Morales DO Active TRUEDRAW LANCING DEVICE MISC test blood sugar twice daily dx: 250.00 LANCET DEVICES 13502642205 Active Tu Landeros MD Active TRUETEST TEST INVITR STRP test blood sugar twice daily. DX 250.0 GLUCOSE BLOOD 69475874578 Active Tu Landeros MD Active EMBRACE BLOOD GLUCOSE TEST STRP test blood sugar twice daily DX 250.0 2014 GLUCOSE BLOOD 90005139642 No Longer Active Tu Landeros MD Active TRUETEST TEST STRP test blood sugar three times daily dx: 250.00 GLUCOSE BLOOD 68153700367 No Longer Active Suze VOGEL Active TRUERESULT BLOOD GLUCOSE W/DEVICE KIT use to test blood sugar tid dx: 250.00 BLOOD GLUCOSE MONITORING SUPPL 48055462042 No Longer Active Suze VOGEL Active ALIGN 4 MG CAPS 1 tid PROBIOTIC PRODUCT 22528577046 No Longer Active Shaun Sy MD Active CIPRO 500 MG TABS 1 bid x 14 days start 09-28-13 CIPROFLOXACIN HCL 88596201999 No Longer Active Shaun Sy MD Active TRAMADOL HCL 50 MG TABS 1-2 tablets every 6 hours as needed for pain TRAMADOL HCL 82762227662 Active Tu Landeros MD Active HYDROCODONE-ACETAMINOPHEN 5-325 MG TABS 1 tab by mouth every 6 hours as needed for pain HYDROCODONE-ACETAMINOPHEN 25565012435 No Longer Active Tu Landeros MD Active OMEPRAZOLE 20 MG CPDR 1 po q a.m. OMEPRAZOLE 30636574659 Active Tu Landeros MD Active GABAPENTIN 100 MG CAPS 1 po bid GABAPENTIN 68705712541 No Longer Active Tu Landeros MD Active B-12 100 MCG TABS Take one by mouth daily CYANOCOBALAMIN 31254067710 No Longer Active Tu Landeros MD Active BACTRIM DS 800-160 MG TABS 1 bid x 14 day start 09-28-13 SULFAMETHOXAZOLE-TRIMETHOPRIM 67263703599 No Longer Active Tu Landeros MD Active CARVEDILOL 12.5 MG TABS 1 po BID CARVEDILOL 31609128263 Active Tu Landeros MD Active SUPER B COMPLEX/VITAMIN C TABS 1 qd B COMPLEX-C 90733691466 Active JASPREET Perez Active TRILIPIX 135 MG CPDR 1 q hs CHOLINE FENOFIBRATE 79749637774 Active Tu Landeros MD Active FENOFIBRATE 145 MG TABS 1 po qd FENOFIBRATE 20803773619 No Longer Active JASPREET Perez Active OMEPRAZOLE 20 MG TBEC 1 PO 30 MIN BEFORE 1ST MEAL OMEPRAZOLE 88379741043 No Longer Active JASPREET Perez Active SIMVASTATIN 40 MG TABS Take one by mouth daily SIMVASTATIN 47055092341 No Longer Active JASPREET Perez Active VENLAFAXINE HCL 75 MG TABS 1 po BID VENLAFAXINE HCL 24099967985 No Longer Active Gustavo JASPREET Grene Active CIPRO 500 MG TAB 1 tablet by mouth twice daily CIPROFLOXACIN HCL 47133130735 No Longer Active Tu Landeros MD Active VENLAFAXINE HCL 37.5 MG TABS 1 po BID VENLAFAXINE HCL 19584162153 No Longer Active Suzebianca Nicole RMA Active LAMISIL 250 MG TAB 1 po qd TERBINAFINE HCL 80601865716 No Longer Active Tu Landeros MD Active LORTAB 5 5-500 MG TABS 1/2 to 1 tablet by mouth every 4 hours as needed for pain HYDROCODONE-ACETAMINOPHEN 95730551622 No Longer Active Tu Landeros MD Active ENALAPRIL MALEATE 20 MG TABS 1.5 po qd ENALAPRIL MALEATE 22710096274 Active Tu Landeros MD Active HYDROCODONE-ACETAMINOPHEN 5-500 MG TABS take one po Q 4-6 hours prn HYDROCODONE-ACETAMINOPHEN 87920392007 No Longer Active Tu Landeros MD Active BACTRIM DS 800-160 MG TABS 1 po BID x 7 days SULFAMETHOXAZOLE-TRIMETHOPRIM 24988593842 No Longer Active Tu Landeros MD Active VENLAFAXINE HCL 75 MG TABS 1 po BID VENLAFAXINE HCL 47479355073 No Longer Active Elvira Cervantes MD PhD Active TRAMADOL HCL 50 MG TABS 1 tablets every 6 hours as needed for pain TRAMADOL HCL 77769600083 No Longer Active Tu Landeros MD Active ACCU-CHEK FASTCLIX LANCETS MISC Use to check bloodsugar three times daily as needed LANCETS 11185985473 No Longer Active Tu Landeros MD Active ACCU-CHEK KEYONA PLUS STRP Use for testing bloodsugars three times daily as needed GLUCOSE BLOOD 81474893882 No Longer Active Tu Landeros MD Active ACCU-CHEK KEYONA PLUS W/DEVICE KIT Use for testing bloodsugars three times daily as needed BLOOD GLUCOSE MONITORING SUPPL 37521009250 No Longer Active Tu Landeros MD Active SPIRONOLACTONE 25 MG TAB 0.5 tablet by mouth daily SPIRONOLACTONE 48614870818 No Longer Active Tu Landeros MD Active ALPRAZOLAM 0.5 MG TABS 1 tab every 6hrs as needed ALPRAZOLAM 25259528605 No Longer Active Tu Landeros MD Active AUGMENTIN 875-125 MG TAB 1 tab by mouth twice daily with food AMOXICILLIN-POT CLAVULANATE 56012648561 No Longer Active Tu Landeros MD Active PREDNISONE 20 MG TAB 2 tabs daily for 3 days, 1 tab daily for 3 days, 1/2 tab daily for 2 days PREDNISONE 23689212389 No Longer Active Tu Landeros MD Active XANAX 0.5 MG TABS 1 tablet every 6 hrs prn ALPRAZOLAM 34435664661 No Longer Active Tu Landeros MD Active PREDNISONE 20 MG TAB 2 tabs daily for 3 days, 1 tab daily for 3 days, 1/2 tab daily for 2 days PREDNISONE 84304226220 No Longer Active Tu Landeros MD Active TRIAMCINOLONE ACETONIDE 0.1 % OINT Apply to affected areas TID for up to 2 weeks TRIAMCINOLONE ACETONIDE 36503791870 No Longer Active Tu Landeros MD Active LORTAB 5 5-500 MG TABS 1/2 to 1 tablet by mouth every 4 hours as needed for pain HYDROCODONE-ACETAMINOPHEN 18434144277 No Longer Active Tu Landeros MD Active MULTIVITAMINS TABS Take one by mouth daily MULTIPLE VITAMIN 19497254290 No Longer Active Tu Landeros MD Active MELATONIN 5 MG TABS Take one by mouth daily MELATONIN 43605724149 No Longer Active Tu Landeros MD Active SOMA 350 MG TAB 1 po q 6 hours prn spasm CARISOPRODOL 06793385624 No Longer Active Tu Landeros MD Active MECLIZINE HCL 25 MG CHEW TAB 1 four times a day as needed for dizziness 08/05 MECLIZINE HCL 07713312694 No Longer Active Fab Morales DO Active ANGEL BREEZE 2 TEST DISK test tid prn GLUCOSE BLOOD 81987377368 No Longer Active Negra Scott RN Active REGLAN 10 MG TAB 1 po TID PRN Nausea METOCLOPRAMIDE HCL 52161225512 No Longer Active Tu Landeros MD Active METFORMIN HCL 500 MG TABS 1 PO BID METFORMIN HCL 17941629091 No Longer Active Tu Landeros MD Active AMBIEN 10 MG TAB 1 tab by mouth at bedtime as needed for sleep ZOLPIDEM TARTRATE 20548972633 No Longer Active Tu Landeros MD Active FLUOXETINE HCL 40 MG CAPS 1 po q day FLUOXETINE HCL 65212430975 No Longer Active Mayra Harriet Active FISH OIL 1000 MG CAPS Take one by mouth daily OMEGA-3 FATTY ACIDS 00878759670 Active Tu Landeros MD Active GLUCOSAMINE 500 MG TABS Take 2 tab po qd GLUCOSAMINE 79052093562 Active Tu Landeros MD Active TRILIPIX 135 MG CPDR 1 po qd CHOLINE FENOFIBRATE 97030939501 No Longer Active Tu Landeros MD Active ASPIRIN 81 MG CHEW TAB 1 tablet by mouth daily ASPIRIN 92230280759 Active Tu Landeros MD Active FUROSEMIDE 40 MG TAB 1 tablet by mouth daily FUROSEMIDE 74097998293 Active Tu Landeros MD Active KLOR-CON 10 10 MEQ CR-TABS TAKE 2 TABS DAILY POTASSIUM CHLORIDE 42941917733 Active Tu Landeros MD Active AMBIEN 10 MG TAB 1 tab by mouth at bedtime as needed for sleep AMBIEN 10 MG TAB 481616 ZOLPIDEM TARTRATE Inactive METFORMIN HCL 500 MG TABS 1 PO BID METFORMIN HCL 500 MG TABS 116322 METFORMIN HCL Inactive REGLAN 10 MG TAB 1 po TID PRN Nausea REGLAN 10 MG TAB 548272 METOCLOPRAMIDE HCL Inactive MECLIZINE HCL 25 MG CHEW TAB 1 four times a day as needed for dizziness 08/05 MECLIZINE HCL 25 MG CHEW TAB 385296 MECLIZINE HCL Inactive SOMA 350 MG TAB 1 po q 6 hours prn spasm SOMA 350 MG TAB 203024 CARISOPRODOL Inactive MELATONIN 5 MG TABS Take one by mouth daily MELATONIN 5 MG TABS 009748 MELATONIN Inactive MULTIVITAMINS TABS Take one by mouth daily MULTIVITAMINS TABS MULTIPLE VITAMIN Inactive LORTAB 5 5-500 MG TABS 1/2 to 1 tablet by mouth every 4 hours as needed for pain LORTAB 5 5-500 MG TABS HYDROCODONE- ACETAMINOPHEN Inactive XANAX 0.5 MG TABS 1 tablet every 6 hrs prn XANAX 0.5 MG TABS 705672 ALPRAZOLAM Inactive AUGMENTIN 875-125 MG TAB 1 tab by mouth twice daily with food AUGMENTIN 875-125 MG TAB 765708 AMOXICILLIN-POT CLAVULANATE Inactive ALPRAZOLAM 0.5 MG TABS 1 tab every 6hrs as needed ALPRAZOLAM 0.5 MG TABS 124773 ALPRAZOLAM Inactive SPIRONOLACTONE 25 MG TAB 0.5 tablet by mouth daily SPIRONOLACTONE 25 MG TAB 243579 SPIRONOLACTONE Inactive ACCU-CHEK KEYONA PLUS W/DEVICE KIT Use for testing bloodsugars three times daily as needed ACCU-CHEK KEYONA PLUS W/DEVICE KIT BLOOD GLUCOSE MONITORING SUPPL Inactive ACCU-CHEK KEYONA PLUS STRP Use for testing bloodsugars three times daily as needed ACCU-CHEK KEYONA PLUS STRP GLUCOSE BLOOD Inactive ACCU-CHEK FASTCLIX LANCETS [facility] Use to check bloodsugar three times daily as needed ACCU-CHEK FASTCLIX LANCETS [facility] [id number] LANCETS Inactive TRAMADOL HCL 50 MG TABS 1 tablets every 6 hours as needed for pain TRAMADOL HCL 50 MG TABS 342213 TRAMADOL HCL Inactive VENLAFAXINE HCL 75 MG TABS 1 po BID VENLAFAXINE HCL 75 MG TABS 877932 VENLAFAXINE HCL Inactive HYDROCODONE-ACETAMINOPHEN 5-500 MG TABS take one po Q 4-6 hours prn HYDROCODONE-ACETAMINOPHEN 5-500 MG TABS HYDROCODONE- ACETAMINOPHEN Inactive LORTAB 5 5-500 MG TABS 1/2 to 1 tablet by mouth every 4 hours as needed for pain LORTAB 5 5-500 MG TABS HYDROCODONE- ACETAMINOPHEN Inactive LAMISIL 250 MG TAB 1 po qd LAMISIL 250 MG TAB 805105 TERBINAFINE HCL Inactive VENLAFAXINE HCL 37.5 MG TABS 1 po BID VENLAFAXINE HCL 37.5 MG TABS 064460 VENLAFAXINE HCL Inactive CIPRO 500 MG TAB 1 tablet by mouth twice daily CIPRO 500 MG TAB 821030 CIPROFLOXACIN HCL Inactive VENLAFAXINE HCL 75 MG TABS 1 po BID VENLAFAXINE HCL 75 MG TABS 872944 VENLAFAXINE HCL Inactive SIMVASTATIN 40 MG TABS Take one by mouth daily SIMVASTATIN 40 MG TABS 070440 SIMVASTATIN Inactive OMEPRAZOLE 20 MG TBEC 1 PO 30 MIN BEFORE 1ST MEAL OMEPRAZOLE 20 MG TBEC 500857 OMEPRAZOLE Inactive FENOFIBRATE 145 MG TABS 1 po qd FENOFIBRATE 145 MG TABS 945442 FENOFIBRATE Inactive BACTRIM DS 800-160 MG TABS 1 bid x 14 day start 09-28-13 BACTRIM DS 800-160 MG TABS 779020 SULFAMETHOXAZOLE-TRIMETHOPRIM Inactive B-12 100 MCG TABS Take one by mouth daily B-12 100 MCG TABS CYANOCOBALAMIN Inactive GABAPENTIN 100 MG CAPS 1 po bid GABAPENTIN 100 MG CAPS 535147 GABAPENTIN Inactive HYDROCODONE-ACETAMINOPHEN 5-325 MG TABS 1 tab by mouth every 6 hours as needed for pain HYDROCODONE-ACETAMINOPHEN 5-325 MG TABS 214231 HYDROCODONE-ACETAMINOPHEN Inactive CIPRO 500 MG TABS 1 bid x 14 days start 09-28-13 CIPRO 500 MG TABS 094437 CIPROFLOXACIN HCL Inactive ALIGN 4 MG CAPS 1 tid ALIGN 4 MG CAPS PROBIOTIC PRODUCT Inactive TRUERESULT BLOOD GLUCOSE W/DEVICE KIT use to test blood sugar tid dx: 250.00 TRUERESULT BLOOD GLUCOSE W/DEVICE KIT BLOOD GLUCOSE MONITORING SUPPL Inactive TRUETEST TEST STRP test blood sugar three times daily dx: 250.00 TRUETEST TEST STRP GLUCOSE BLOOD Inactive EMBRACE BLOOD GLUCOSE TEST STRP test blood sugar twice daily DX 250.0 2014 EMBRACE BLOOD GLUCOSE TEST STRP GLUCOSE BLOOD Inactive DICLOFENAC SODIUM 50 MG TBEC 1 tablet by mouth three times a day as needed DICLOFENAC SODIUM 50 MG TBEC 056258 DICLOFENAC SODIUM Inactive PREDNISONE 20 MG TAB 2 tablets once daily for 2 days, then 1 tablet once daily for 2 days PREDNISONE 20 MG TAB 974647 PREDNISONE Inactive TRUEDRAW LANCING DEVICE MISC Test twice a day dx 250.0 TRUEDRAW LANCING DEVICE MISC LANCET DEVICES Inactive TRUERESULT BLOOD GLUCOSE W/DEVICE KIT test blood sugar twice daily dx 250.00 TRUERESULT BLOOD GLUCOSE W/DEVICE KIT BLOOD GLUCOSE MONITORING SUPPL Inactive FLONASE 50 MCG/ACT SUSP 1 spray each nostril twice daily until bottle empty FLONASE 50 MCG/ACT SUSP FLUTICASONE PROPIONATE Inactive VENTOLIN HFA 108 (90 BASE) MCG/ACT AERS 1-2 puffs every 4 hours if needed for cough/congestion VENTOLIN HFA 108 (90 BASE) MCG/ACT AERS ALBUTEROL SULFATE Inactive REQUIP 2 MG TABS Take one tablet at bedtime prn REQUIP 2 MG TABS 356591 ROPINIROLE HCL Inactive TRIAMCINOLONE ACETONIDE 0.1 % OINT Apply to affected areas TID for up to 2 weeks TRIAMCINOLONE ACETONIDE 0.1 % OINT 4823983 TRIAMCINOLONE ACETONIDE Inactive PREDNISONE 20 MG TAB 2 tabs daily for 3 days, 1 tab daily for 3 days, 1/2 tab daily for 2 days PREDNISONE 20 MG TAB 489328 PREDNISONE Inactive PREDNISONE 20 MG TAB 2 tabs daily for 3 days, 1 tab daily for 3 days, 1/2 tab daily for 2 days PREDNISONE 20 MG TAB 556573 PREDNISONE Inactive BACTRIM DS 800-160 MG TABS 1 po BID x 7 days BACTRIM DS 800-160 MG TABS 377969 SULFAMETHOXAZOLE-TRIMETHOPRIM Inactive ZITHROMAX 250 MG TAB 2 po today, then 1 po q days 2-5 ZITHROMAX 250 MG TAB 4756726 AZITHROMYCIN Inactive Advance Directives Directive Description Start Date DISCUSSED WITH PATIENT -- NO DECISION MADE Immunizations Vaccine Administration Date Value Standard Description Seasonal influenza vaccine, injectable, containing preservative, for > 3 years old (Afluria, FluLaval, Fluzone, Fluvirin, Fluarix, Agriflu(>=18 yo)) Fluzone (>3 yrs.) [[id number]] Influenza, seasonal, injectable influenza immunization (Flu Vax) has been administered 02/22/2012 influenza virus vaccine, unspecified formulation Seasonal influenza vaccine, injectable, containing preservative, for > 3 years old (Afluria, FluLaval, Fluzone, Fluvirin, Fluarix, Agriflu(>=18 yo)) Fluzone (>3 yrs.) [[id number]] Influenza, seasonal, injectable Vital Signs Date Name Value Unit Range Description blood pressure, diastolic, supine 82 mm[Hg] BP ac blood pressure, systolic, supine E&M 152 mm[Hg] BP sys pulse rate E&M - 8867-4 60 /min Heart rate temperature E&M 97.1 [degF] Body temperature weight E&M - 3141-9 315.50 [lb_av] Weight Measured blood pressure, diastolic - 8462-4 78 mm[Hg] BP ac blood pressure, systolic - 8480-6 151 mm[Hg] BP sys height E&M - 8302-2 65 [in_us] Bdy height pulse rate E&M - 8867-4 70 /min Heart rate temperature E&M 96.1 [degF] Body temperature weight E&M - 3141-9 311 [lb_av] Weight Measured blood pressure, diastolic - 8462-4 72 mm[Hg] BP ac blood pressure, systolic - 8480-6 146 mm[Hg] BP sys pulse rate E&M - 8867-4 52 /min Heart rate temperature E&M 98.7 [degF] Body temperature weight E&M - 3141-9 311.0 [lb_av] Weight Measured blood pressure, diastolic - 8462-4 81 mm[Hg] BP ac blood pressure, systolic - 8480-6 152 mm[Hg] BP sys pulse rate E&M - 8867-4 66 /min Heart rate temperature E&M 98.6 [degF] Body temperature weight E&M - 3141-9 308.5 [lb_av] Weight Measured Diagnostic Results Date Name Value Unit Range Description Lab Report: CBC - Hematology leukocyte count, blood 8.4 10^3/MM^3 10*3/mm3 4.6-10.2 erythrocyte (RBC) count 4.38 10^6/MM^3 10*6/mm3 4.04-5.48 hemoglobin, blood 13.1 g/dL 12.0-16.0 hematocrit, blood 39.7 % 36.0-46.0 mean corpuscular volume, RBC 91 fL 80-97 mean corpuscular hemoglobin, RBC 29.9 pg 27.0-31.2 mean corpuscular hemoglobin concentration, RBC 33.0 G/DL % 31.8- 35.4 red blood cell distribution width 15.3 % 11.6-14.8 platelet count 251 10^3/MM^3 10*3/mm3 142-424 Lab Report: HGBA1C - Chemistry hemoglobin A1C, blood, as % of total hemoglobin 7.7 % 4.3-6.0 hemoglobin A1C, blood, as % of total hemoglobin 7.1 % 4.3-6.0 hemoglobin A1C, blood, as % of total hemoglobin 7.4 % 4.3-6.0 sodium, serum 140 mmol/L 760-045 5320/09/07 potassium, serum 4.3 mmol/L 3.5-5.2 chloride, serum 104 mmol/L 98-107 carbon dioxide, venous blood 27.7 mmol/L 21.0-32.0 blood glucose 156 mg/dL 65-110 calcium, serum 9.3 mg/dL 8.5-10.1 urea nitrogen, blood 23 mg/dL 7-18 creatinine, serum 1.21 mg/dL 0.55-1.30 Lab Report: Lipid Panel, Comp. Metabolic Panel - Chemistry cholesterol, serum 124 mg/dL 508-777 5714/01/12 triglyceride, serum, fasting 135 mg/dL 30-200 HDL cholesterol, serum 41 mg/dL 32-96 LDL cholesterol, serum 56 mg/dL 0-130 sodium, serum 140 mmol/L 553-645 6913/01/12 carbon dioxide, venous blood 27.7 mmol/L 21.0-32.0 potassium, serum 4.5 mmol/L 3.5-5.2 chloride, serum 104 mmol/L 98-107 blood glucose 139 mg/dL 65-110 urea nitrogen, blood 16 mg/dL 7-18 alanine aminotransferase (SGPT), serum 32 U/L 12-78 aspartate aminotransferase (SGOT), serum 25 U/L 15-37 calcium, serum 9.1 mg/dL 8.5-10.1 bilirubin, serum, total 0.50 mg/dL 0.00-1.00 Encounters Code Encounter Date Provider Facility CPT-07658 Level 4 Est. Patient 14:40:19 CDT Tu Landeros MD [facility] CPT-69314 Level 4 Est. Patient 14:06:04 [employer] Tu Landeros MD [facility] CPT-88309 Level 3 Est. Patient 14:05:18 [employer] Tu Landeros MD [facility] CPT-67941 Level 3 Est. Patient 10:06:54 [employer] Miranda Suresh APRN [facility] CPT-45426 Level 4 Est. Patient 13:50:18 [employer] Tu Landeros MD [facility] CPT-53846 Level 3 Est. Patient 10:30:04 CDT Tu Landeros MD [facility] CPT-43302 Level 4 Est. Patient 11:03:38 CDT Tu Landeros MD [facility] CPT-41901 Level 3 Est. Patient 10:20:44 CDT Fab Morales DO [facility] CPT-27431 Level 4 Est. Patient 14:38:57 CDT Tu Landeros MD [facility] CPT-63438 Level 4 Est. Patient 14:27:39 [employer] Tu Landeros MD [facility] CPT-20844 Level 4 Est. Patient 09:45:25 CDT Tu Landeros MD [facility] CPT-89216 Level 4 Est. Patient 09:05:20 [employer] Tu Landeros MD [facility] CPT-81583 Level 4 Est. Patient 14:09:06 CDT Tu Landeros MD [facility] CPT-33928 Level 3 Est. Patient 13:36:54 CDT Tu Landeros MD [facility] CPT-22200 Level 3 Est. Patient 08:59:14 CDT Tu Landeros MD [facility] CPT-83573 Level 3 Est. Patient 13:48:35 CDT Fab Morales DO [facility] CPT-84455 Level 4 Est. Patient 10:05:48 CDT Tu Landeros MD [facility] CPT-70256 Level 3 Est. Patient 13:38:[address] [facility] CPT-06810 Level 5 Est. Patient 08:08:[address] [facility] CPT-56543 Level 4 Est. Patient 14:23:38 CDT Tu Landeros MD [facility] CPT-33647 Level 3 Est. Patient 11:44:04 CDT Tu Landeros MD [facility] CPT-64687 Level 3 Est. Patient 11:03:20 [employer] Tu Landeros MD [facility] CPT-10143 Level 3 Est. Patient 11:03:14 [employer] Tu Landeros MD [facility] CPT-02792 Level 3 Est. Patient 12:42:49 CDT Tu Landeros MD [facility] CPT-52090 Level 3 Est. Patient 11:52:06 CDT Tu Landeros MD [facility] CPT-88150 Level 3 Est. Patient 13:58:11 CDT Tu Landeros MD [facility] CPT-70746 Level 3 Est. Patient 17:50:07 CDT Fab Morales DO [facility] CPT-12378 Level 3 Est. Patient 12:06:29 CDT Elvira Cervantes MD [facility] CPT-41194 Level 3 Est. Patient 15:50:32 CDT Tu Landeros MD [facility] CPT-01260 Level 4 Est. Patient 16:08:29 CDT Tu Landeros MD [facility] CPT-17484 Level 3 Est. Patient 16:04:19 CDT Tu Landeros MD [facility] CPT-51051 Level 3 Est. Patient 11:22:30 [employer] Tu Landeros MD [facility] CPT-87487 Level 4 Est. Patient 16:24:02 [employer] Tu Landeros MD [facility] CPT-94725 Level 3 Est. Patient 17:21:23 [employer] Tu Landeros MD [facility] Procedures Code Procedure Name Date Entry Date Standard Description CPT-89173 First Vx - Ix admin for Medicare patients 16:46:52 CDT CPT-46998 Fluzone Preservative Free Intramuscular Suspension 16:46 :51 CDT CPT-45559 CBC - LAB USE ONLY 17:14:46 CDT CPT-98742 HGBA1C - LAB USE ONLY 17:14:46 CDT CPT-07432 Venipuncture Draw Fee 17:14:46 CDT CPT-G0438 Initial Annual Wellness Exam 14:13:04 CDT CPT-49682 Breathing Tx 10:06:54 [employer] CPT-05846 Postop F/U Visit 10:02:45 CDT CPT-LR Lesion Removal 09:02:56 CDT CPT-JTINJ Asp/Joint Injection 15:51:27 [employer] CPT-OV Office Visit 15:52:02 [employer] CPT-OV Office Visit 15:45:11 CDT CPT-000 Give Zostavax 14:09:06 CDT CPT-75099 Administration single or combination vaccine inc oral 15 :19:04 CDT CPT-84444 Zoster Vaccine (Zostavax) 15:19:04 CDT CPT-61871 Administration single or combination vaccine inc oral 20 :51:03 CDT CPT-88368 Influenza split virus > age 3 20:51:03 CDT CPT-18833 No Charge Offi Visit 14:52:03 CDT CPT-OV Office Visit 14:57:43 CDT CPT-OV Office Visit 15:22:32 CDT CPT-71283 Administration single or combination vaccine inc oral 11 :33:15 CDT CPT-70856 Influenza split virus > age 3 11:33:15 CDT
--- OUTSIDE RECORDS SUMMARY | 2018-04-25 12:28 | XMS REPORT | Clinical Summary ---
Author Author Admin, SACHI Organization [employer] Address Unknown Phone Unavailable Allergies, Adverse Reactions, [...] Knee pain, left, acute 719.46 Resolved Tu Ladneros MD Pain in [...] or localized, involving lower leg Obesity 278.00 Active Tu Landeros MD Obesity , unspecified Pain in unspecified foot 729.5 Active Tu Landeros MD Pain in limb HEALTH SCREENING ICD-V70.0 Inactive Elvira Cervantes MD [...] TUNNEL SYNDROME ICD-354.0 Inactive Tu Landeros MD POSTMENOPAUSAL BLEEDING ICD-627.1 Inactive Elvira Cervantes MD PhD ARTHRITIS ICD-716.90 Inactive Tu Landeros MD KNEE [...] Generic Name NDC Status Provider Patient Instruction GLIPIZIDE 5 MG ORAL TABS 1 po qd GLIPIZIDE 82937396516 Active Tu Landeros MD Active VENLAFAXINE HCL 75 MG ORAL TABS 1 po BID VENLAFAXINE HCL 59838138797 Active Tu Landeros MD Active GLIMEPIRIDE 1 MG ORAL TABS 1 po qd GLIMEPIRIDE 75123411705 No Longer Active Tu Landeros MD Active TRUE METRIX BLOOD GLUCOSE TEST INVITR STRP Test blood sugar BID Dx: E11.9 GLUCOSE BLOOD 18419232635 Active Tu Landeros MD Active TRUE METRIX AIR GLUCOSE METER W/DEVICE KIT Test blood glucose BID Dx: E11.9 BLOOD GLUCOSE MONITORING SUPPL 08849810970 Active Tu Landeros MD Active TRUETEST TEST INVITR STRP test blood sugar twice daily. DX 250.0 GLUCOSE BLOOD 94794551478 No Longer Active Mirna Stanley LPN Active TRUEDRAW LANCING DEVICE MISC test blood sugar twice daily dx: 250.00 LANCET DEVICES 40772848288 No Longer Active Mirna Stanley LPN Active ENALAPRIL MALEATE 20 MG TABS 2 po qd ENALAPRIL MALEATE 81995238233 Active Tu Landeros MD Active SUPER B COMPLEX/VITAMIN C TABS 1 qd B COMPLEX-C 22778406242 No Longer Active Tu Landeros MD Active ASPIRIN EC 81 MG ORAL TBEC 1 po qd ASPIRIN 24683376979 Active Tu Landeros MD Active GLUCOSAMINE 500 MG TABS 2 po qd GLUCOSAMINE Active Tu Landeros MD Active SIMVASTATIN 40 MG TABS 0.5 po qHS SIMVASTATIN 60517242524 Active Tu Landeros MD Active FISH OIL 1000 MG CAPS 1 po qd OMEGA-3 FATTY ACIDS 31852493994 Active Tu Landeros MD Active METFORMIN HCL 1000 MG TABS 1 po BID METFORMIN HCL 07784833165 Active Tu Landeros MD Active KLOR-CON 10 10 MEQ CR-TABS 2 po qd POTASSIUM CHLORIDE 13851882150 Active Tu Landeros MD Active FUROSEMIDE 40 MG TAB 1 po qd FUROSEMIDE 83147250464 Active Tu Landeros MD Active REQUIP 2 MG ORAL TABS 1 po qHS PRN Restless legs ROPINIROLE HCL 07001139166 Active Tu Landeros MD Active GABAPENTIN 100 MG CAPS 1 po BID GABAPENTIN 96537739178 Active Tu Landeros MD Active REQUIP 2 MG TABS Take one tablet at bedtime prn ROPINIROLE HCL 00884876444 No Longer Active Tu Landeros MD Active VENTOLIN HFA 108 (90 BASE) MCG/ACT AERS 1-2 puffs every 4 hours if needed for cough/congestion ALBUTEROL SULFATE 38508066387 No Longer Active Ambika King AMANDA Active ZITHROMAX 250 MG TAB 2 po today, then 1 po q days 2-5 AZITHROMYCIN 08947892565 No Longer Active Miranda Suresh APRN Active FLONASE 50 MCG/ACT SUSP 1 spray each nostril twice daily until bottle empty FLUTICASONE PROPIONATE 18299937942 No Longer Active Tu Landeros MD Active COLACE 100 MG CAP 1 po BID PRN Constipation DOCUSATE SODIUM 53495303246 Active Tu Landeros MD Active TRUERESULT BLOOD GLUCOSE W/DEVICE KIT test blood sugar twice daily dx 250.00 BLOOD GLUCOSE MONITORING SUPPL 95842204932 No Longer Active Tu Landeros MD Active TRUEDRAW LANCING DEVICE MISC Test twice a day dx 250.0 LANCET DEVICES 87815966841 No Longer Active Tu Landeros MD Active PREDNISONE 20 MG TAB 2 tablets once daily for 2 days, then 1 tablet once daily for 2 days PREDNISONE 57710931395 No Longer Active Tu Landeros MD Active DICLOFENAC SODIUM 50 MG TBEC 1 tablet by mouth three times a day as needed DICLOFENAC SODIUM 11943134361 No Longer Active Fab Morales DO Active EMBRACE BLOOD GLUCOSE TEST STRP test blood sugar twice daily DX 250.0 2014 GLUCOSE BLOOD 25242461872 No Longer Active Tu Landeros MD Active TRUETEST TEST STRP test blood sugar three times daily dx: 250.00 GLUCOSE BLOOD 26934185046 No Longer Active Suze VOGEL Active TRUERESULT BLOOD GLUCOSE W/DEVICE KIT use to test blood sugar tid dx: 250.00 BLOOD GLUCOSE MONITORING SUPPL 65585236475 No Longer Active Suze VOGEL Active ALIGN 4 MG CAPS 1 tid PROBIOTIC PRODUCT 04650536437 No Longer Active Shaun Sy MD Active CIPRO 500 MG TABS 1 bid x 14 days start 09-28-13 CIPROFLOXACIN HCL 30411981224 No Longer Active Shaun Sy MD Active TRAMADOL HCL 50 MG TABS 1-2 tablets every 6 hours as needed for pain TRAMADOL HCL 98951532339 Active Lesli Kellogg APRN Active HYDROCODONE-ACETAMINOPHEN 5-325 MG TABS 1 tab by mouth every 6 hours as needed for pain HYDROCODONE-ACETAMINOPHEN 85620178711 No Longer Active Tu Landeros MD Active OMEPRAZOLE 20 MG CPDR 1 po q a.m. OMEPRAZOLE 94898586863 Active Lesli Kellogg APRN Active GABAPENTIN 100 MG CAPS 1 po bid GABAPENTIN 28879998628 No Longer Active Tu Landeros MD Active B-12 100 MCG TABS Take one by mouth daily CYANOCOBALAMIN 59330119567 No Longer Active Tu Landeros MD Active BACTRIM DS 800-160 MG TABS 1 bid x 14 day start 09-28-13 SULFAMETHOXAZOLE-TRIMETHOPRIM 12110303461 No Longer Active Tu Landeros MD Active CARVEDILOL 12.5 MG TABS 1 po BID CARVEDILOL 05687938097 Active Tu Landeros MD Active TRILIPIX 135 MG CPDR 1 q hs CHOLINE FENOFIBRATE 69851563688 Active Tu Landeros MD Active FENOFIBRATE 145 MG TABS 1 po qd FENOFIBRATE 81880535202 No Longer Active JASPREET Perez Active OMEPRAZOLE 20 MG TBEC 1 PO 30 MIN BEFORE 1ST MEAL OMEPRAZOLE 02026642332 No Longer Active JASPREET Perez Active SIMVASTATIN 40 MG TABS Take one by mouth daily SIMVASTATIN 19987495876 No Longer Active JASPREET Perez Active VENLAFAXINE HCL 75 MG TABS 1 po BID VENLAFAXINE HCL 10621947509 No Longer Active Gustavo JASPREET Green Active CIPRO 500 MG TAB 1 tablet by mouth twice daily CIPROFLOXACIN HCL 32069306713 No Longer Active Tu Landeros MD Active VENLAFAXINE HCL 37.5 MG TABS 1 po BID VENLAFAXINE HCL 26757213505 No Longer Active Suze Seguraart RMA Active LAMISIL 250 MG TAB 1 po qd TERBINAFINE HCL 77957769065 No Longer Active Tu Landeros MD Active LORTAB 5 5-500 MG TABS 1/2 to 1 tablet by mouth every 4 hours as needed for pain HYDROCODONE-ACETAMINOPHEN 44705705331 No Longer Active Tu Landeros MD Active HYDROCODONE-ACETAMINOPHEN 5-500 MG TABS take one po Q 4-6 hours prn HYDROCODONE-ACETAMINOPHEN 49462616775 No Longer Active Tu Landeros MD Active BACTRIM DS 800-160 MG TABS 1 po BID x 7 days SULFAMETHOXAZOLE-TRIMETHOPRIM 13466932216 No Longer Active Tu Landeros MD Active VENLAFAXINE HCL 75 MG TABS 1 po BID VENLAFAXINE HCL 71319108557 No Longer Active Elvira Cervantes MD PhD Active TRAMADOL HCL 50 MG TABS 1 tablets every 6 hours as needed for pain TRAMADOL HCL 28299141858 No Longer Active Tu Landeros MD Active ACCU-CHEK FASTCLIX LANCETS MISC Use to check bloodsugar three times daily as needed LANCETS 90996401883 No Longer Active Tu Landeros MD Active ACCU-CHEK KEYONA PLUS STRP Use for testing bloodsugars three times daily as needed GLUCOSE BLOOD 35536011353 No Longer Active Tu Landeros MD Active ACCU-CHEK KEYONA PLUS W/DEVICE KIT Use for testing bloodsugars three times daily as needed BLOOD GLUCOSE MONITORING SUPPL 01866198993 No Longer Active Tu Landeros MD Active SPIRONOLACTONE 25 MG TAB 0.5 tablet by mouth daily SPIRONOLACTONE 23134319483 No Longer Active Tu Landeros MD Active ALPRAZOLAM 0.5 MG TABS 1 tab every 6hrs as needed ALPRAZOLAM 01943347833 No Longer Active Tu Landeros MD Active AUGMENTIN 875-125 MG TAB 1 tab by mouth twice daily with food AMOXICILLIN-POT CLAVULANATE 79936576676 No Longer Active Tu Landeros MD Active PREDNISONE 20 MG TAB 2 tabs daily for 3 days, 1 tab daily for 3 days, 1/2 tab daily for 2 days PREDNISONE 32342213370 No Longer Active Tu Landeros MD Active XANAX 0.5 MG TABS 1 tablet every 6 hrs prn ALPRAZOLAM 80278482238 No Longer Active Tu Landeros MD Active PREDNISONE 20 MG TAB 2 tabs daily for 3 days, 1 tab daily for 3 days, 1/2 tab daily for 2 days PREDNISONE 15526324005 No Longer Active Tu Landeros MD Active TRIAMCINOLONE ACETONIDE 0.1 % OINT Apply to affected areas TID for up to 2 weeks TRIAMCINOLONE ACETONIDE 49539975144 No Longer Active Tu Landeros MD Active LORTAB 5 5-500 MG TABS 1/2 to 1 tablet by mouth every 4 hours as needed for pain HYDROCODONE-ACETAMINOPHEN 07889090512 No Longer Active Tu Landeros MD Active MULTIVITAMINS TABS Take one by mouth daily MULTIPLE VITAMIN 40341749952 No Longer Active Tu Landeros MD Active MELATONIN 5 MG TABS Take one by mouth daily MELATONIN 40872876792 No Longer Active Tu Landeros MD Active SOMA 350 MG TAB 1 po q 6 hours prn spasm CARISOPRODOL 54486873694 No Longer Active Tu Landeros MD Active MECLIZINE HCL 25 MG CHEW TAB 1 four times a day as needed for dizziness 08/05 MECLIZINE HCL 60483563504 No Longer Active Fab Morales DO Active ANGEL BREEZE 2 TEST DISK test tid prn GLUCOSE BLOOD 15960014366 No Longer Active Negra Scott RN Active REGLAN 10 MG TAB 1 po TID PRN Nausea METOCLOPRAMIDE HCL 21295103775 No Longer Active Tu Landeros MD Active METFORMIN HCL 500 MG TABS 1 PO BID METFORMIN HCL 74437024184 No Longer Active Tu Landeros MD Active AMBIEN 10 MG TAB 1 tab by mouth at bedtime as needed for sleep ZOLPIDEM TARTRATE 03691674030 No Longer Active Tu Landeros MD Active FLUOXETINE HCL 40 MG CAPS 1 po q day FLUOXETINE HCL 00302698236 No Longer Active Mayra Fieldsarger Active TRILIPIX 135 MG CPDR 1 po qd CHOLINE FENOFIBRATE 29645360149 No Longer Active Tu Landeros MD Active AMBIEN 10 MG TAB 1 tab by mouth at bedtime as needed for sleep AMBIEN 10 MG TAB 509698 ZOLPIDEM TARTRATE Inactive METFORMIN HCL 500 MG TABS 1 PO BID METFORMIN HCL 500 MG TABS 768705 METFORMIN HCL Inactive REGLAN 10 MG TAB 1 po TID PRN Nausea REGLAN 10 MG TAB 826466 METOCLOPRAMIDE HCL Inactive MECLIZINE HCL 25 MG CHEW TAB 1 four times a day as needed for dizziness 08/05 MECLIZINE HCL 25 MG CHEW TAB 760163 MECLIZINE HCL Inactive SOMA 350 MG TAB 1 po q 6 hours prn spasm SOMA 350 MG TAB 517033 CARISOPRODOL Inactive MELATONIN 5 MG TABS Take one by mouth daily MELATONIN 5 MG TABS 213543 MELATONIN Inactive MULTIVITAMINS TABS Take one by mouth daily MULTIVITAMINS TABS MULTIPLE VITAMIN Inactive LORTAB 5 5-500 MG TABS 1/2 to 1 tablet by mouth every 4 hours as needed for pain LORTAB 5 5-500 MG TABS HYDROCODONE- ACETAMINOPHEN Inactive XANAX 0.5 MG TABS 1 tablet every 6 hrs prn XANAX 0.5 MG TABS 506858 ALPRAZOLAM Inactive AUGMENTIN 875-125 MG TAB 1 tab by mouth twice daily with food AUGMENTIN 875-125 MG TAB 450609 AMOXICILLIN-POT CLAVULANATE Inactive ALPRAZOLAM 0.5 MG TABS 1 tab every 6hrs as needed ALPRAZOLAM 0.5 MG TABS 853217 ALPRAZOLAM Inactive SPIRONOLACTONE 25 MG TAB 0.5 tablet by mouth daily SPIRONOLACTONE 25 MG TAB 659523 SPIRONOLACTONE Inactive ACCU-CHEK KEYONA PLUS W/DEVICE KIT Use for testing bloodsugars three times daily as needed ACCU-CHEK KEYONA PLUS W/DEVICE KIT BLOOD GLUCOSE MONITORING SUPPL Inactive ACCU-CHEK KEYONA PLUS STRP Use for testing bloodsugars three times daily as needed ACCU-CHEK KEYONA PLUS STRP GLUCOSE BLOOD Inactive ACCU-CHEK FASTCLIX LANCETS MISC Use to check bloodsugar three times daily as needed ACCU-CHEK FASTCLIX LANCETS MISC 05609628410 LANCETS Inactive TRAMADOL HCL 50 MG TABS 1 tablets every 6 hours as needed for pain TRAMADOL HCL 50 MG TABS 869136 TRAMADOL HCL Inactive VENLAFAXINE HCL 75 MG TABS 1 po BID VENLAFAXINE HCL 75 MG TABS 242221 VENLAFAXINE HCL Inactive HYDROCODONE-ACETAMINOPHEN 5-500 MG TABS take one po Q 4-6 hours prn HYDROCODONE-ACETAMINOPHEN 5-500 MG TABS HYDROCODONE- ACETAMINOPHEN Inactive LORTAB 5 5-500 MG TABS 1/2 to 1 tablet by mouth every 4 hours as needed for pain LORTAB 5 5-500 MG TABS HYDROCODONE- ACETAMINOPHEN Inactive LAMISIL 250 MG TAB 1 po qd LAMISIL 250 MG TAB 449305 TERBINAFINE HCL Inactive VENLAFAXINE HCL 37.5 MG TABS 1 po BID VENLAFAXINE HCL 37.5 MG TABS 578866 VENLAFAXINE HCL Inactive CIPRO 500 MG TAB 1 tablet by mouth twice daily CIPRO 500 MG TAB 135642 CIPROFLOXACIN HCL Inactive VENLAFAXINE HCL 75 MG TABS 1 po BID VENLAFAXINE HCL 75 MG TABS 870556 VENLAFAXINE HCL Inactive SIMVASTATIN 40 MG TABS Take one by mouth daily SIMVASTATIN 40 MG TABS 748168 SIMVASTATIN Inactive OMEPRAZOLE 20 MG TBEC 1 PO 30 MIN BEFORE 1ST MEAL OMEPRAZOLE 20 MG TBEC 529049 OMEPRAZOLE Inactive FENOFIBRATE 145 MG TABS 1 po qd FENOFIBRATE 145 MG TABS 281737 FENOFIBRATE Inactive BACTRIM DS 800-160 MG TABS 1 bid x 14 day start 09-28-13 BACTRIM DS 800-160 MG TABS 751670 SULFAMETHOXAZOLE-TRIMETHOPRIM Inactive B-12 100 MCG TABS Take one by mouth daily B-12 100 MCG TABS CYANOCOBALAMIN Inactive GABAPENTIN 100 MG CAPS 1 po bid GABAPENTIN 100 MG CAPS 905403 GABAPENTIN Inactive HYDROCODONE-ACETAMINOPHEN 5-325 MG TABS 1 tab by mouth every 6 hours as needed for pain HYDROCODONE-ACETAMINOPHEN 5-325 MG TABS 271816 HYDROCODONE-ACETAMINOPHEN Inactive CIPRO 500 MG TABS 1 bid x 14 days start 09-28-13 CIPRO 500 MG TABS 201308 CIPROFLOXACIN HCL Inactive ALIGN 4 MG CAPS [...] as needed DICLOFENAC SODIUM 50 MG TBEC 188670 DICLOFENAC SODIUM Inactive PREDNISONE 20 MG TAB 2 tablets once daily for 2 days, then 1 tablet once daily for 2 days PREDNISONE 20 MG TAB 555525 PREDNISONE Inactive TRUEDRAW LANCING DEVICE MISC Test twice a day dx 250.0 TRUEDRAW LANCING DEVICE MISC LANCET DEVICES Inactive TRUERESULT BLOOD GLUCOSE W/DEVICE KIT test blood sugar twice daily dx 250.00 TRUERESULT BLOOD GLUCOSE W/DEVICE KIT BLOOD GLUCOSE MONITORING SUPPL Inactive FLONASE 50 MCG/ACT SUSP 1 spray each nostril twice daily until bottle empty FLONASE 50 MCG/ACT SUSP 4308966 FLUTICASONE PROPIONATE Inactive VENTOLIN HFA 108 (90 BASE) MCG/ACT AERS 1-2 puffs every 4 hours if needed for cough/congestion VENTOLIN HFA 108 (90 BASE) MCG/ACT AERS ALBUTEROL SULFATE Inactive REQUIP 2 MG TABS Take one tablet at bedtime prn REQUIP 2 MG TABS 963427 ROPINIROLE HCL Inactive SUPER B COMPLEX/VITAMIN C TABS 1 qd SUPER B COMPLEX/ VITAMIN C TABS 35343607157 B COMPLEX-C Inactive TRUEDRAW LANCING DEVICE MISC test blood sugar twice daily dx: 250.00 TRUEDRAW LANCING DEVICE MISC LANCET DEVICES Inactive TRUETEST TEST INVITR STRP test blood sugar twice daily. DX 250.0 TRUETEST TEST INVITR STRP GLUCOSE BLOOD Inactive TRIAMCINOLONE ACETONIDE 0.1 % OINT Apply to affected areas TID for up to 2 weeks TRIAMCINOLONE ACETONIDE 0.1 % OINT 0985205 TRIAMCINOLONE ACETONIDE Inactive PREDNISONE 20 MG TAB 2 tabs daily for 3 days, 1 tab daily for 3 days, 1/2 tab daily for 2 days PREDNISONE 20 MG TAB 451179 PREDNISONE Inactive PREDNISONE 20 MG TAB 2 tabs daily for 3 days, 1 tab daily for 3 days, 1/2 tab daily for 2 days PREDNISONE 20 MG TAB 776152 PREDNISONE Inactive BACTRIM DS 800-160 MG TABS 1 po BID x 7 days BACTRIM DS 800-160 MG TABS 760370 SULFAMETHOXAZOLE-TRIMETHOPRIM Inactive ZITHROMAX 250 MG TAB 2 po today, then 1 po q days 2-5 ZITHROMAX 250 MG TAB 2704046 AZITHROMYCIN Inactive Advance Directives Directive Description Start Date DISCUSSED WITH PATIENT -- NO DECISION MADE Immunizations Vaccine Administration Date Value Standard Description Seasonal influenza vaccine, injectable, containing preservative, for > 3 years old (Afluria, FluLaval, Fluzone, Fluvirin, Fluarix, Agriflu(>=18 yo)) Fluzone (>3 yrs.) [[id number]] Influenza, seasonal, injectable influenza immunization (Flu Vax) has been administered 02/22/2012 influenza virus vaccine, unspecified formulation Seasonal influenza vaccine, injectable, containing preservative, for > 3 years old (Afluria, FluLaval, Fluzone, Fluvirin, Fluarix, Agriflu(>=18 yo)) Fluzone (>3 yrs.) [[id number]] Influenza, seasonal, injectable Vital Signs Date Name Value Unit Range Description blood pressure, diastolic - 8462-4 73 mm[Hg] BP ac blood pressure, systolic - 8480-6 143 mm[Hg] BP sys height E&M - 8302-2 60.25 [in_us] Bdy height pulse rate E&M - 8867-4 66 /min Heart rate temperature E&M 98.0 [degF] Body temperature weight E&M - 3141-9 310.38 [lb_av] Weight Measured blood pressure, diastolic - 8462-4 67 mm[Hg] BP ac blood pressure, systolic - 8480-6 177 mm[Hg] BP sys height E&M - 8302-2 63 [in_us] Bdy height pulse rate E&M - 8867-4 60 /min Heart rate temperature E&M 98.2 [degF] Body temperature weight E&M - 3141-9 317.2 [lb_av] Weight Measured blood pressure, diastolic, supine 82 mm[Hg] BP ac blood pressure, systolic, supine E&M 152 mm[Hg] BP sys pulse rate E&M - 8867-4 60 /min Heart rate temperature E&M 97.1 [degF] Body temperature weight E&M - 3141-9 315.50 [lb_av] Weight Measured Diagnostic Results Date Name [...] count 251 10^3/MM^3 10*3/mm3 142-424 Lab Report: CBC, HGBA1C - Chemistry hemoglobin A1C, blood, as % of total hemoglobin 7.2 % 4.3-6.0 Lab Report: CBC, HGBA1C - Hematology leukocyte count, blood 10.8 10^3/MM^3 10*3/mm3 4.6-10.2 erythrocyte (RBC) count 4.58 10^6/MM^3 10*6/mm3 4.04-5.48 hemoglobin, blood 13.7 g/dL 12.0-16.0 hematocrit, blood 41.2 % 36.0-46.0 mean corpuscular volume, RBC 90 fL 80-97 mean corpuscular hemoglobin, RBC 29.9 pg 27.0-31.2 mean corpuscular hemoglobin concentration, RBC 33.3 G/DL % 31.8- 35.4 red blood cell distribution width 13.6 % 11.6-14.8 platelet count 279 10^3/MM^3 10*3/mm3 142-424 Lab Report: Comp. Metabolic Panel, Lipid Panel, Magnesium - Chemistry sodium, serum 143 mmol/L 307-943 9677/01/10 carbon dioxide, venous blood 28.0 mmol/L 21.0-32.0 potassium, serum 4.5 mmol/L 3.5-5.2 chloride, serum 104 mmol/L 98-107 blood glucose 158 mg/dL 65-110 urea nitrogen, blood 23 mg/dL 7-18 creatinine, serum 1.06 mg/dL 0.55-1.30 alanine aminotransferase (SGPT), serum 42 U/L 12-78 aspartate aminotransferase (SGOT), serum 32 U/L 15-37 calcium, serum 9.3 mg/dL 8.5-10.1 bilirubin, serum, total 0.20 mg/dL 0.00-1.00 cholesterol, serum 177 mg/dL 964-993 5839/01/10 triglyceride, serum, fasting 320 mg/dL 30-200 HDL cholesterol, serum 46 mg/dL 32-96 LDL cholesterol, serum 67 mg/dL 0-130 Lab Report: COMPREHENSIVE METABOLIC PANEL, LIPID PANEL, HEMOGLOBIN A1c - Chemistry cholesterol, serum 135 mg/dL 929-099 2180/05/17 HDL cholesterol, serum 41 mg/dL > OR=46 triglyceride, serum, fasting 206 mg/dL <150 LDL cholesterol, serum 53 MG/DL (CALC) mg/dL <130 cholesterol/HDL ratio, serum 3.3 (calc) < OR=5.0 Lab Report: HGBA1C - Chemistry hemoglobin A1C, blood, as % of total hemoglobin 7.4 % 4.3-6.0 sodium, serum 140 mmol/L 005-683 2828/09/07 potassium, serum 4.3 mmol/L 3.5-5.2 chloride, serum 104 mmol/L 98-107 carbon dioxide, venous blood 27.7 mmol/L 21.0-32.0 blood glucose 156 mg/dL 65-110 calcium, serum 9.3 mg/dL 8.5-10.1 urea nitrogen, blood 23 mg/dL 7-18 creatinine, serum 1.21 mg/dL 0.55-1.30 Lab Report: MicroAlb Random w/creat/6517 - Urinalysis microalbumin/total urine volume 21 mg/L Units converted. See lab report for original value. microalbumin/creatinine ratio, urine 11 MCG/MG CREAT mg/L <30 Encounters Code Encounter Date Provider Facility CPT-58659 Level 4 Est. Patient 14:29:21 CDT Tu Landeros MD [facility] CPT-01492 Level 4 Est. Patient 09:08:17 CHORE TENDER Tu Landeros MD [facility] CPT-16328 Level 4 Est. Patient 14:40:19 CDT Tu Landeros MD [facility] CPT-73988 Level 4 Est. Patient 14:06:04 CHORE TENDER Tu Landeros MD [facility] CPT-06954 Level 3 Est. Patient 14:05:18 CHORE TENDER Tu Landeros MD [facility] CPT-72770 Level 3 Est. Patient 10:06:54 CHORE TENDER Miranda Suresh APRN [facility] CPT-00430 Level 4 Est. Patient 13:50:18 CHORE TENDER Tu Landeros MD [facility] CPT-29550 Level 3 Est. Patient 10:30:04 CDT Tu Landeros MD [facility] CPT-23954 Level 4 Est. Patient 11:03:38 CDT Tu Landeros MD [facility] CPT-93794 Level 3 Est. Patient 10:20:44 CDT Fba Morales DO [facility] CPT-58098 Level 4 Est. Patient 14:38:57 CDT Tu Landeros MD [facility] CPT-44201 Level 4 Est. Patient 14:27:39 CHORE TENDER Tu Landeros MD [facility] CPT-97657 Level 4 Est. Patient 09:45:25 CDT Tu Landeros MD [facility] CPT-99228 Level 4 Est. Patient 09:05:20 CHORE TENDER Tu Landeros MD [facility] CPT-72895 Level 4 Est. Patient 14:09:06 CDT Tu Landeros MD [facility] CPT-52346 Level 3 Est. Patient 13:36:54 CDT Tu Landeros MD [facility] CPT-37023 Level 3 Est. Patient 08:59:14 CDT Tu Landeros MD [facility] CPT-56589 Level 3 Est. Patient 13:48:35 CDT Fab Morales DO [facility] CPT-44223 Level 4 Est. Patient 10:05:48 CDT Tu Landeros MD [facility] CPT-75109 Level 3 Est. Patient 13:38:42 CDT Marek BANKS [facility] CPT-12297 Level 5 Est. Patient 08:08:39 CDT Maxjanelle Kellie FRANCIS [facility] CPT-16348 Level 4 Est. Patient 14:23:38 CDT Tu Landeros MD [facility] CPT-71193 Level 3 Est. Patient 11:44:04 CDT Tu Landeros MD [facility] CPT-11212 Level 3 Est. Patient 11:03:20 CHORE TENDER Tu Landeros MD [facility] CPT-32120 Level 3 Est. Patient 11:03:14 CHORE TENDER Tu Landeros MD [facility] CPT-45402 Level 3 Est. Patient 12:42:49 CDT Tu Landeros MD [facility] CPT-38354 Level 3 Est. Patient 11:52:06 CDT Tu Landeros MD [facility] CPT-06486 Level 3 Est. Patient 13:58:11 CDT Tu Landeros MD [facility] CPT-18771 Level 3 Est. Patient 17:50:07 CDT Fab Morales DO [facility] CPT-36493 Level 3 Est. Patient 12:06:29 CDT Elvira Cervantes MD PhD [facility] CPT-49478 Level 3 Est. Patient 15:50:32 CDT Tu Landeros MD [facility] CPT-30800 Level 4 Est. Patient 16:08:29 CDT Tu Landeros MD [facility] CPT-43824 Level 3 Est. Patient 16:04:19 CDT Tu Landeros MD [facility] CPT-97458 Level 3 Est. Patient 11:22:30 CHORE TENDER Tu Landeros MD [facility] CPT-24798 Level 4 Est. Patient 16:24:02 CHORE TENDER Tu Landeros MD [facility] CPT-24238 Level 3 Est. Patient 17:21:23 CHORE TENDER Tu Landeros MD [facility] Procedures Code Procedure Name Date Entry Date Standard Description CPT-G0009 Administration of Pneumococcal Vaccine 15:08:26 CDT CPT-37906 Prevnar 13 Intramuscular Suspension 15:08:26 CDT 10/08 CPT-G0439 [facility] Annual Wellness Exam 14:29:22 CDT CPT-20129 Venipuncture Draw Fee 13:15:35 CDT CPT-96200 Magnesium - LAB USE ONLY 11:14:20 CHORE TENDER CPT-02269 Lipid - LAB USE ONLY 11:14:20 CHORE TENDER CPT-26311 HGBA1C - LAB USE ONLY 11:14:20 CHORE TENDER CPT-54538 CMP - LAB USE ONLY 11:14:19 CHORE TENDER CPT-09981 CBC - LAB USE ONLY 11:14:19 CHORE TENDER CPT-84443 Venipuncture Draw Fee 11:14:18 CHORE TENDER CPT-02288 First Vx - Ix admin for Medicare patients 16:46:52 CDT CPT-97938 Fluzone Preservative Free Intramuscular Suspension 16:46 :51 CDT CPT-52950 CBC - LAB USE ONLY 17:14:46 CDT CPT-24254 HGBA1C - LAB USE ONLY 17:14:46 CDT CPT-30462 Venipuncture Draw Fee 17:14:46 CDT CPT-G0438 Initial Annual Wellness Exam 14:13:04 CDT CPT-32784 Breathing Tx 10:06:54 CHORE TENDER CPT-53475 Postop F/U Visit 10:02:45 CDT CPT-LR Lesion Removal 09:02:56 CDT CPT-JTINJ Asp/Joint Injection 15:51:27 CHORE TENDER CPT-OV Office Visit 15:52:02 CHORE TENDER CPT-OV Office Visit 15:45:11 CDT CPT-000 Give Zostavax 14:09:06 CDT CPT-18969 Administration single or combination vaccine inc oral 15 :19:04 CDT CPT-96175 Zoster Vaccine (Zostavax) 15:19:04 CDT CPT-21922 Administration single or combination vaccine inc oral 20 :51:03 CDT CPT-65305 Influenza split virus > age 3 20:51:03 CDT CPT-47792 No Charge Offi Visit 14:52:03 CDT CPT-OV Office Visit 14:57:43 CDT CPT-OV Office Visit 15:22:32 CDT CPT-23672 Administration single or combination vaccine inc oral 11 :33:15 CDT CPT-84027 Influenza split virus > age 3 11:33:15 CDT
[2018-04-25 12:29] LABS: PROTHROMBIN TIME PATIENT 13.3 SEC (12.2-14.7)
[2018-04-25 12:30] LABS: ALANINE AMINOTRANSFERASE 28 U/L (0-55); ALBUMIN 4.2 GM/DL (3.2-4.5); ALKALINE PHOSPHATASE 67 U/L (40-136); BILIRUBIN,TOTAL 0.4 MG/DL (0.1-1.0); BUN/CREATININE RATIO 17; CALCIUM 9.7 MG/DL (8.5-10.1); CARBON DIOXIDE 25 MMOL/L (21-32); CHLORIDE 107 MMOL/L (98-107); CHOLESTEROL 196 MG/DL (< 200); CREATININE SERUM 0.86 MG/DL (0.60-1.30); GFR ESTIMATED > 60; GLUCOSE 117 MG/DL (70-105); HDL CHOLESTEROL 50 MG/DL (40-60); POTASSIUM 4.7 MMOL/L (3.6-5.0); SODIUM 142 MMOL/L (135-145); TOTAL PROTEIN 7.1 GM/DL (6.4-8.2); TRIGLYCERIDES 261 MG/DL (<150); VLDL CHOLESTEROL 52 MG/DL (5-40)
--- OUTSIDE RECORDS SUMMARY | 2018-04-25 12:30 | XMS REPORT | Clinical Summary ---
Author Author Admin, SACHI Organization [employer] Address Unknown Phone Unavailable Allergies, Adverse Reactions, [...] Tu Landeros MD Disorders of magnesium metabolism POSTMENOPAUSAL BLEEDING ICD-627.1 Inactive Elvira Cervantes MD PhD HEALTH SCREENING ICD-V70.0 Inactive Elvira Cervantes MD PhD 2011 INSOMNIA, PERSISTENT ICD-307.42 Inactive Tu Landeros MD GASTROENTERITIS ICD-558.9 Inactive Tu aLnderos MD DIZZINESS ICD-780.4 Inactive Tu Landeros MD BENIGN PAROXYSMAL POSITIONAL VERTIGO ICD-386.11 Inactive Tu Landeros MD LEG CRAMPS, NOCTURNAL ICD-729.82 Inactive Tu Landeros MD FREQUENCY, URINARY ICD-788.41 Inactive Elvira Cervantes MD PhD FEVER UNSPECIFIED ICD-780.60 Inactive Tu Landeros MD MUSCLE SPASM ICD-728.85 Inactive Tu Landeros MD SCIATICA ICD-724.3 Inactive Tu Landeros MD 2012 SHOULDER PAIN, LEFT ICD-719.41 Inactive Tu Landeros MD PARESTHESIA ICD-782.0 Tessa Landeros MD RASH AND OTHER NONSPECIFIC SKIN [...] ICD-719.46 Inactive Tu Landeros MD Osteoarthritis ICD-715.90 Tessa Landeros MD Ear pain, bilateral ICD-388.70 Tessa Landeros MD Hot flashes ICD-627.2 Tessa Landeros MD Sebaceous cyst ICD-706.2 Inactive Tu Landeros MD Upper respiratory infection, viral ICD-465.9 Tessa Landeros MD Sinusitis - acute ICD-461.9 Tessa Landeros MD Leg pain, left ICD-729.5 Tessa Landeros MD Vision impairment, both eyes, impairment level not further specified ICD- 369.20 Inactive Tu Landeros MD Pain in unspecified foot ICD-729.5 Inactive Tu Landeros MD Shoulder pain, right ICD-719.41 Inactive Tu Landeros MD Great toe pain ICD-729.5 Inactive Tu Landeros MD Medication List Medication Instructions Start Date Stop Date Generic Name NDC Status Provider Patient Instruction MAGNESIUM OXIDE 400 MG ORAL TABLET 1 po BID MAGNESIUM OXIDE 92509600807 Active Tu Landeros MD Active SIMVASTATIN 20 MG ORAL TABLET 0.5 po qHS SIMVASTATIN 31434626412 Active Tu Landeros MD Active DICLOFENAC SODIUM 75 MG ORAL TABLET DELAYED RELEASE 1 po BID PRN Pain DICLOFENAC SODIUM 10152533141 No Longer Active Tu Landeros MD Active GABAPENTIN 100 MG ORAL CAPSULE 1 po TID GABAPENTIN 34409611217 Active Tu Landeros MD Active DICLOFENAC SODIUM 50 MG ORAL TABLET DELAYED RELEASE 1 po BID PRN Pain DICLOFENAC SODIUM 89444264912 No Longer Active Tu Landeros MD Active CYCLOBENZAPRINE HCL 10 MG ORAL TABLET 1 po TID PRN Muscle Spasm CYCLOBENZAPRINE HCL 86944729591 No Longer Active Tu Landeros MD Active INVOKANA 100 MG ORAL TABLET 1 po qd CANAGLIFLOZIN 02097637265 Active Tu Landeros MD Active GLIPIZIDE 5 MG ORAL TABLET 1 po qd GLIPIZIDE 11395187939 No Longer Active Tu Landeros MD Active VENLAFAXINE HCL 75 MG ORAL TABLET 1 po BID VENLAFAXINE HCL 12155481481 Active Tu Landeros MD Active GLIMEPIRIDE 1 MG ORAL TABLET 1 po qd GLIMEPIRIDE 60203870440 No Longer Active Tu Landeros MD Active TRUE METRIX BLOOD GLUCOSE TEST IN VITRO STRIP Test blood sugar BID Dx: E11.9 GLUCOSE BLOOD 01250607066 Active Tu Landeros MD Active TRUE METRIX AIR GLUCOSE METER w/Device KIT Test blood glucose BID Dx: E11.9 BLOOD GLUCOSE MONITORING SUPPL 62822261150 Active Tu Landeros MD Active TRUETEST TEST IN VITRO STRIP test blood sugar twice daily. DX 250.0 GLUCOSE BLOOD 85337521882 No Longer Active Mirna Stanley LPN Active TRUEDRAW LANCING DEVICE test blood sugar twice daily dx: 250.00 LANCET DEVICES 92962005449 No Longer Active Mirna Stanley LPN Active ENALAPRIL MALEATE 20 MG ORAL TABLET 2 po qd ENALAPRIL MALEATE 41904562517 Active Tu Landeros MD Active SUPER B COMPLEX/VITAMIN C ORAL TABLET 1 qd B COMPLEX- C 79931901393 No Longer Active Tu Landeros MD Active ASPIRIN EC 81 MG ORAL TABLET DELAYED RELEASE 1 po qd ASPIRIN 34680381353 Active Tu Landeros MD Active GLUCOSAMINE 500 MG TABS 2 po qd GLUCOSAMINE Active Tu Landeros MD Active FISH OIL 1000 MG ORAL CAPSULE 1 po qd OMEGA-3 FATTY ACIDS 12478867978 Active Tu Landeros MD Active METFORMIN HCL 1000 MG ORAL TABLET 1 po BID METFORMIN HCL 04918249199 Active Tu Landeros MD Active KLOR-CON 10 10 MEQ ORAL TABLET EXTENDED RELEASE 2 po qd POTASSIUM CHLORIDE 80479420887 Active Tu Landeros MD Active FUROSEMIDE 40 MG ORAL TABLET 1 po qd FUROSEMIDE 52729064618 Active Tu Landeros MD Active REQUIP 2 MG ORAL TABLET 1 po qHS PRN Restless legs ROPINIROLE HCL 77591756343 Active Tu Landeros MD Active REQUIP 2 MG ORAL TABLET Take one tablet at bedtime prn ROPINIROLE HCL 72816930416 No Longer Active Tu Landeros MD Active VENTOLIN HFA 108 (90 Base) MCG/ACT INHALATION AEROSOL SOLUTION 1-2 puffs every 4 hours if needed for cough/congestion ALBUTEROL SULFATE 57871619168 No Longer Active Ambika Aden APRN Active ZITHROMAX 250 MG ORAL TABLET 2 po today, then 1 po q days 2-5 AZITHROMYCIN 46638925925 No Longer Active Miranda Suresh APRN Active FLONASE 50 MCG/ACT NASAL SUSPENSION 1 spray each nostril twice daily until bottle empty FLUTICASONE PROPIONATE 26216966637 No Longer Active Tu Landeros MD Active COLACE 100 MG ORAL CAPSULE 1 po BID PRN Constipation DOCUSATE SODIUM 12945433713 Active Tu Landeros MD Active TRUERESULT BLOOD GLUCOSE w/Device KIT test blood sugar twice daily dx 250.00 BLOOD GLUCOSE MONITORING SUPPL 72119860298 No Longer Active Tu Landeros MD Active TRUEDRAW LANCING DEVICE Test twice a day dx 250.0 LANCET DEVICES 74151532353 No Longer Active Tu Landeros MD Active PREDNISONE 20 MG ORAL TABLET 2 tablets once daily for 2 days, then 1 tablet once daily for 2 days PREDNISONE 79519086970 No Longer Active Tu Landeros MD Active DICLOFENAC SODIUM 50 MG ORAL TABLET DELAYED RELEASE 1 tablet by mouth three times a day as needed DICLOFENAC SODIUM 79476411735 No Longer Active Fab Morales DO Active EMBRACE BLOOD GLUCOSE TEST IN VITRO STRIP test blood sugar twice daily DX 250.0 GLUCOSE BLOOD 91567827864 No Longer Active Tu Landeros MD Active TRUETEST TEST IN VITRO STRIP test blood sugar three times daily dx: 250.00 GLUCOSE BLOOD 48087268205 No Longer Active Suze VOGEL Active TRUERESULT BLOOD GLUCOSE w/Device KIT use to test blood sugar tid dx: 250.00 BLOOD GLUCOSE MONITORING SUPPL 75835965171 No Longer Active Suze Corey VOGEL Active ALIGN 4 MG ORAL CAPSULE 1 tid PROBIOTIC PRODUCT 83705780778 No Longer Active Shaun Sy MD Active CIPRO 500 MG ORAL TABLET 1 bid x 14 days start 09-28-13 CIPROFLOXACIN HCL 32283218490 No Longer Active Shaun Sy MD Active TRAMADOL HCL 50 MG ORAL TABLET 1-2 tablets every 6 hours as needed for pain TRAMADOL HCL 68665863287 Active Tu Landeros MD Active HYDROCODONE-ACETAMINOPHEN 5-325 MG ORAL TABLET 1 tab by mouth every 6 hours as needed for pain HYDROCODONE-ACETAMINOPHEN 43623436146 No Longer Active Tu Landeros MD Active OMEPRAZOLE 20 MG ORAL CAPSULE DELAYED RELEASE 1 po q a.m. OMEPRAZOLE 43880807763 Active Fab Morales DO Active GABAPENTIN 100 MG ORAL CAPSULE 1 po bid GABAPENTIN 14546588235 No Longer Active Tu Landeros MD Active B-12 100 MCG ORAL TABLET Take one by mouth daily CYANOCOBALAMIN 63393432910 No Longer Active Tu Landeros MD Active BACTRIM DS 800-160 MG ORAL TABLET 1 bid x 14 day start 09-28-13 SULFAMETHOXAZOLE-TRIMETHOPRIM 34409903345 No Longer Active Tu Landeros MD Active CARVEDILOL 12.5 MG ORAL TABLET 1 po BID CARVEDILOL 19478544641 Active Tu Landeros MD Active TRILIPIX 135 MG ORAL CAPSULE DELAYED RELEASE 1 q hs CHOLINE FENOFIBRATE 18903926515 Active Tu Landeros MD Active FENOFIBRATE 145 MG ORAL TABLET 1 po qd FENOFIBRATE 07762079495 No Longer Active JASPREET Perez Active OMEPRAZOLE 20 MG ORAL TABLET DELAYED RELEASE 1 PO 30 MIN BEFORE 1ST MEAL 2010 OMEPRAZOLE 06722373946 No Longer Active JASPREET Perez Active SIMVASTATIN 40 MG ORAL TABLET Take one by mouth daily SIMVASTATIN 99314290347 No Longer Active JASPREET Perez Active VENLAFAXINE HCL 75 MG ORAL TABLET 1 po BID VENLAFAXINE HCL 73114405789 No Longer Active JASPREET Perez Active CIPRO 500 MG ORAL TABLET 1 tablet by mouth twice daily CIPROFLOXACIN HCL 33341363003 No Longer Active Tu Landeros MD Active VENLAFAXINE HCL 37.5 MG ORAL TABLET 1 po BID VENLAFAXINE HCL 52231674841 No Longer Active Suze VOGEL Active LAMISIL 250 MG ORAL TABLET 1 po qd TERBINAFINE HCL 29951690281 No Longer Active Tu Landeros MD Active LORTAB 5-500 MG ORAL TABLET 1/2 to 1 tablet by mouth every 4 hours as needed for pain HYDROCODONE-ACETAMINOPHEN 66481588126 No Longer Active Tu Landeros MD Active HYDROCODONE-ACETAMINOPHEN 5-500 MG ORAL TABLET take one po Q 4-6 hours prn HYDROCODONE-ACETAMINOPHEN 60118784960 No Longer Active Tu Landeros MD Active BACTRIM DS 800-160 MG ORAL TABLET 1 po BID x 7 days SULFAMETHOXAZOLE-TRIMETHOPRIM 97954493400 No Longer Active Tu Landeros MD Active VENLAFAXINE HCL 75 MG ORAL TABLET 1 po BID VENLAFAXINE HCL 29677159261 No Longer Active Elvira Cervantes MD PhD Active TRAMADOL HCL 50 MG ORAL TABLET 1 tablets every 6 hours as needed for pain TRAMADOL HCL 46027926345 No Longer Active Tu Landeros MD Active ACCU-CHEK FASTCLIX LANCETS Use to check bloodsugar three times daily as needed LANCETS 20687745916 No Longer Active Tu Landeros MD Active ACCU-CHEK KEYONA PLUS IN VITRO STRIP Use for testing bloodsugars three times daily as needed GLUCOSE BLOOD 91084405979 No Longer Active Tu Landeros MD Active ACCU-CHEK KEYONA PLUS w/Device KIT Use for testing bloodsugars three times daily as needed BLOOD GLUCOSE MONITORING SUPPL 88232663972 No Longer Active Tu Landeros MD Active SPIRONOLACTONE 25 MG ORAL TABLET 0.5 tablet by mouth daily 09/09 SPIRONOLACTONE 18159293499 No Longer Active Tu Landeros MD Active ALPRAZOLAM 0.5 MG ORAL TABLET 1 tab every 6hrs as needed ALPRAZOLAM 81054150971 No Longer Active Tu Landeros MD Active AUGMENTIN 875-125 MG ORAL TABLET 1 tab by mouth twice daily with food AMOXICILLIN-POT CLAVULANATE 21477901554 No Longer Active Tu Landeros MD Active PREDNISONE 20 MG ORAL TABLET 2 tabs daily for 3 days, 1 tab daily for 3 days, 1/2 tab daily for 2 days PREDNISONE 14878215084 No Longer Active Tu Landeros MD Active XANAX 0.5 MG ORAL TABLET 1 tablet every 6 hrs prn ALPRAZOLAM 99697449989 No Longer Active Tu Landeros MD Active PREDNISONE 20 MG ORAL TABLET 2 tabs daily for 3 days, 1 tab daily for 3 days, 1/2 tab daily for 2 days PREDNISONE 82267487332 No Longer Active Tu Landeros MD Active TRIAMCINOLONE ACETONIDE 0.1 % EXTERNAL OINTMENT Apply to affected areas TID for up to 2 weeks TRIAMCINOLONE ACETONIDE 26944658945 No Longer Active Tu Landeros MD Active LORTAB 5-500 MG ORAL TABLET 1/2 to 1 tablet by mouth every 4 hours as needed for pain HYDROCODONE-ACETAMINOPHEN 56773551691 No Longer Active Tu Landeros MD Active MULTIVITAMINS TABS Take one by mouth daily MULTIPLE VITAMIN 28406796658 No Longer Active Tu Landeros MD Active MELATONIN 5 MG ORAL TABLET Take one by mouth daily MELATONIN 61303489624 No Longer Active Tu Landeros MD Active SOMA 350 MG ORAL TABLET 1 po q 6 hours prn spasm CARISOPRODOL 04832611053 No Longer Active Tu Landeros MD Active MECLIZINE HCL 25 MG ORAL TABLET CHEWABLE 1 four times a day as needed for dizziness MECLIZINE HCL 97191174362 No Longer Active Fab Morales DO Active ANGEL BREEZE 2 TEST IN VITRO DISK test tid prn GLUCOSE BLOOD 75025254122 No Longer Active Negra Scott RN Active REGLAN 10 MG ORAL TABLET 1 po TID PRN Nausea METOCLOPRAMIDE HCL 06149977673 No Longer Active Tu Landeros MD Active METFORMIN HCL 500 MG ORAL TABLET 1 PO BID METFORMIN HCL 10964423523 No Longer Active Tu Landeros MD Active AMBIEN 10 MG ORAL TABLET 1 tab by mouth at bedtime as needed for sleep 06/10 ZOLPIDEM TARTRATE 68361107982 No Longer Active Tu Landeros MD Active FLUOXETINE HCL 40 MG ORAL CAPSULE 1 po q day FLUOXETINE HCL 20194120149 No Longer Active Mayra Terry Active TRILIPIX 135 MG ORAL CAPSULE DELAYED RELEASE 1 po qd CHOLINE FENOFIBRATE 51104035651 No Longer Active Tu Landeros MD Active AMBIEN 10 MG ORAL TABLET 1 tab by mouth at bedtime as needed for sleep 06/10 AMBIEN 10 MG ORAL TABLET 328112 ZOLPIDEM TARTRATE Inactive METFORMIN HCL 500 MG ORAL TABLET 1 PO BID METFORMIN HCL 500 MG ORAL TABLET 123713 METFORMIN HCL Inactive REGLAN 10 MG ORAL TABLET 1 po TID PRN Nausea REGLAN 10 MG ORAL TABLET 277456 METOCLOPRAMIDE HCL Inactive MECLIZINE HCL 25 MG ORAL TABLET CHEWABLE 1 four times a day as needed for dizziness MECLIZINE HCL 25 MG ORAL TABLET CHEWABLE 072906 MECLIZINE HCL Inactive SOMA 350 MG ORAL TABLET 1 po q 6 hours prn spasm SOMA 350 MG ORAL TABLET 721525 CARISOPRODOL Inactive MELATONIN 5 MG ORAL TABLET Take one by mouth daily MELATONIN 5 MG ORAL TABLET 198280 MELATONIN Inactive MULTIVITAMINS TABS Take one by mouth daily MULTIVITAMINS TABS MULTIPLE VITAMIN Inactive LORTAB 5-500 MG ORAL TABLET 1/2 to 1 tablet by mouth every 4 hours as needed for pain LORTAB 5-500 MG ORAL TABLET 408688 HYDROCODONE-ACETAMINOPHEN Inactive XANAX 0.5 MG ORAL TABLET 1 tablet every 6 hrs prn XANAX 0.5 MG ORAL TABLET 977361 ALPRAZOLAM Inactive AUGMENTIN 875-125 MG ORAL TABLET 1 tab by mouth twice daily with food AUGMENTIN 875-125 MG ORAL TABLET 160788 AMOXICILLIN-POT CLAVULANATE Inactive ALPRAZOLAM 0.5 MG ORAL TABLET 1 tab every 6hrs as needed ALPRAZOLAM 0.5 MG ORAL TABLET 872194 ALPRAZOLAM Inactive SPIRONOLACTONE 25 MG ORAL TABLET 0.5 tablet by mouth daily 09/09 SPIRONOLACTONE 25 MG ORAL TABLET 905384 SPIRONOLACTONE Inactive ACCU-CHEK KEYONA PLUS w/Device KIT [...] times daily as needed ACCU-CHEK FASTCLIX LANCETS 84935772573 LANCETS Inactive TRAMADOL HCL 50 MG ORAL TABLET 1 tablets every 6 hours as needed for pain TRAMADOL HCL 50 MG ORAL TABLET 685864 TRAMADOL HCL Inactive VENLAFAXINE HCL 75 MG ORAL TABLET 1 po BID VENLAFAXINE HCL 75 MG ORAL TABLET 689060 VENLAFAXINE HCL Inactive HYDROCODONE-ACETAMINOPHEN 5-500 MG ORAL TABLET take one po Q 4-6 hours prn HYDROCODONE-ACETAMINOPHEN 5-500 MG ORAL TABLET 033270 HYDROCODONE-ACETAMINOPHEN Inactive LORTAB 5-500 MG ORAL TABLET 1/2 to 1 tablet by mouth every 4 hours as needed for pain LORTAB 5-500 MG ORAL TABLET 370317 HYDROCODONE-ACETAMINOPHEN Inactive LAMISIL 250 MG ORAL TABLET 1 po qd LAMISIL 250 MG ORAL TABLET 514899 TERBINAFINE HCL Inactive VENLAFAXINE HCL 37.5 MG ORAL TABLET 1 po BID VENLAFAXINE HCL 37.5 MG ORAL TABLET 007234 VENLAFAXINE HCL Inactive CIPRO 500 MG ORAL TABLET 1 tablet by mouth twice daily CIPRO 500 MG ORAL TABLET 034545 CIPROFLOXACIN HCL Inactive VENLAFAXINE HCL 75 MG ORAL TABLET 1 po BID VENLAFAXINE HCL 75 MG ORAL TABLET 472647 VENLAFAXINE HCL Inactive SIMVASTATIN 40 MG ORAL TABLET Take one by mouth daily SIMVASTATIN 40 MG ORAL TABLET 243990 SIMVASTATIN Inactive OMEPRAZOLE 20 MG ORAL TABLET DELAYED RELEASE 1 PO 30 MIN BEFORE 1ST MEAL 2010 OMEPRAZOLE 20 MG ORAL TABLET DELAYED RELEASE 530655 OMEPRAZOLE Inactive FENOFIBRATE 145 MG ORAL TABLET 1 po qd FENOFIBRATE 145 MG ORAL TABLET 060735 FENOFIBRATE Inactive BACTRIM DS 800-160 MG ORAL TABLET 1 bid x 14 day start 09-28-13 BACTRIM DS 800-160 MG ORAL TABLET 270959 SULFAMETHOXAZOLE- TRIMETHOPRIM Inactive B-12 100 MCG ORAL TABLET Take one by mouth daily B-12 100 MCG ORAL TABLET CYANOCOBALAMIN Inactive GABAPENTIN 100 MG ORAL CAPSULE 1 po bid GABAPENTIN 100 MG ORAL CAPSULE 214591 GABAPENTIN Inactive HYDROCODONE-ACETAMINOPHEN 5-325 MG ORAL TABLET 1 tab by mouth every 6 hours as needed for pain HYDROCODONE-ACETAMINOPHEN 5-325 MG ORAL TABLET 607871 HYDROCODONE-ACETAMINOPHEN Inactive CIPRO 500 MG ORAL TABLET 1 bid x 14 days start 09-28-13 CIPRO 500 MG ORAL TABLET 940833 CIPROFLOXACIN HCL Inactive ALIGN 4 MG ORAL [...] SODIUM 50 MG ORAL TABLET DELAYED RELEASE 060925 DICLOFENAC SODIUM Inactive PREDNISONE 20 MG ORAL TABLET 2 tablets once daily for 2 days, then 1 tablet once daily for 2 days PREDNISONE 20 MG ORAL TABLET 205837 PREDNISONE Inactive TRUEDRAW LANCING DEVICE Test twice a day dx 250.0 TRUEDRAW LANCING DEVICE LANCET DEVICES Inactive TRUERESULT BLOOD GLUCOSE w/Device KIT test blood sugar twice daily dx 250.00 TRUERESULT BLOOD GLUCOSE w/Device KIT BLOOD GLUCOSE MONITORING SUPPL Inactive FLONASE 50 MCG/ACT NASAL SUSPENSION 1 spray each nostril twice daily until bottle empty FLONASE 50 MCG/ACT NASAL SUSPENSION 8219886 FLUTICASONE PROPIONATE Inactive VENTOLIN HFA 108 (90 Base) MCG/ACT INHALATION AEROSOL SOLUTION 1-2 puffs every 4 hours if needed for cough/congestion VENTOLIN HFA 108 (90 Base) MCG/ACT INHALATION AEROSOL SOLUTION ALBUTEROL SULFATE Inactive REQUIP 2 MG ORAL TABLET Take one tablet at bedtime prn REQUIP 2 MG ORAL TABLET 547555 ROPINIROLE HCL Inactive SUPER B COMPLEX/VITAMIN C ORAL TABLET 1 qd SUPER B COMPLEX/VITAMIN C ORAL TABLET 80001393913 B COMPLEX-C Inactive TRUEDRAW LANCING DEVICE test blood sugar twice daily dx: 250.00 TRUEDRAW LANCING DEVICE LANCET DEVICES Inactive TRUETEST TEST IN VITRO STRIP test blood sugar twice daily. DX 250.0 TRUETEST TEST IN VITRO STRIP GLUCOSE BLOOD Inactive CYCLOBENZAPRINE HCL 10 MG ORAL TABLET 1 po TID PRN Muscle Spasm CYCLOBENZAPRINE HCL 10 MG ORAL TABLET 836588 CYCLOBENZAPRINE HCL Inactive DICLOFENAC SODIUM 50 MG ORAL TABLET DELAYED RELEASE 1 po BID PRN Pain DICLOFENAC SODIUM 50 MG ORAL TABLET DELAYED RELEASE 197310 DICLOFENAC SODIUM Inactive DICLOFENAC SODIUM 75 MG ORAL TABLET DELAYED RELEASE 1 po BID PRN Pain DICLOFENAC SODIUM 75 MG ORAL TABLET DELAYED RELEASE 360553 DICLOFENAC SODIUM Inactive TRIAMCINOLONE ACETONIDE 0.1 % EXTERNAL OINTMENT Apply to affected areas TID for up to 2 weeks TRIAMCINOLONE ACETONIDE 0.1 % EXTERNAL OINTMENT 8893960 TRIAMCINOLONE ACETONIDE Inactive PREDNISONE 20 MG ORAL TABLET 2 tabs daily for 3 days, 1 tab daily for 3 days, 1/2 tab daily for 2 days PREDNISONE 20 MG ORAL TABLET 320703 PREDNISONE Inactive PREDNISONE 20 MG ORAL TABLET 2 tabs daily for 3 days, 1 tab daily for 3 days, 1/2 tab daily for 2 days PREDNISONE 20 MG ORAL TABLET 673211 PREDNISONE Inactive BACTRIM DS 800-160 MG ORAL TABLET 1 po BID x 7 days BACTRIM DS 800-160 MG ORAL TABLET 625588 SULFAMETHOXAZOLE-TRIMETHOPRIM Inactive ZITHROMAX 250 MG ORAL TABLET 2 po today, then 1 po q days 2-5 ZITHROMAX 250 MG ORAL TABLET 103674 AZITHROMYCIN Inactive Advance Directives Directive Description Start Date DISCUSSED WITH PATIENT -- NO DECISION MADE Immunizations Vaccine Administration Date Value Standard Description Seasonal influenza vaccine, injectable, containing preservative, for > 3 years old (Afluria, FluLaval, Fluzone, Fluvirin, Fluarix, Agriflu(>=18 yo)) Fluzone (>3 yrs.) [[id number]] Influenza, seasonal, injectable influenza immunization (Flu Vax) has been administered 02/22/2012 influenza virus vaccine, unspecified formulation Seasonal influenza vaccine, injectable, containing preservative, for > 3 years old (Afluria, FluLaval, Fluzone, Fluvirin, Fluarix, Agriflu(>=18 yo)) Fluzone (>3 yrs.) [[id number]] Influenza, seasonal, injectable Vital Signs Date Name Value Unit Range Description blood pressure, diastolic 63 mm[Hg] BP ac [...] temperature weight E&M 298.31 [lb_av] Weight Measured blood pressure, diastolic 64 mm[Hg] BP ac blood pressure, systolic 121 mm[Hg] BP sys height E&M 60.25 [in_us] Bdy height pulse rate E&M 69 /min Heart rate temperature E&M 97.8 [degF] Body temperature weight E&M 308.3 [lb_av] Weight Measured blood pressure, diastolic 73 mm[Hg] BP ac blood pressure, systolic 143 mm[Hg] BP sys height E&M 60.25 [in_us] Bdy height pulse rate E&M 66 /min Heart rate temperature E&M 98.0 [degF] Body temperature weight E&M 310.38 [lb_av] Weight Measured Diagnostic Results Date Name Value Unit Range Description Lab Report: CBC, Comp. Metabolic Panel, HGBA1C, Lipid Panel, Magnesium, ... - Chemistry sodium, serum 141 mmol/L 931-102 5085/01/16 carbon dioxide, venous blood 28.3 mmol/L 21.0-32.0 [...] 6.7 % 4.3-6.0 cholesterol, serum 106 mg/dL 300-059 0078/01/16 triglyceride, serum, fasting 173 mg/dL 30-200 HDL [...] microalbumin, urine 10 mg/L 0-19 Lab Report: COMPREHENSIVE METABOLIC PANEL, LIPID PANEL, HEMOGLOBIN A1c - Chemistry cholesterol, serum 135 mg/dL 676-644 6344/05/17 HDL cholesterol, serum 41 mg/dL > OR=46 triglyceride, serum, fasting 206 mg/dL <150 LDL cholesterol, serum 53 MG/DL (CALC) mg/dL <130 cholesterol/HDL ratio, serum 3.3 (calc) < OR=5.0 Lab Report: HGBA1C - Chemistry hemoglobin A1C, blood, as % of total hemoglobin 6.5 % 4.3-6.0 Encounters Code Encounter Date Provider Facility CPT-25187 Level 4 Est. Patient 13:42:02 SIGNAL APPRENTICE Tu Landeros MD [facility] CPT-50628 Level 3 Est. Patient 14:20:36 CDT Tu Landeros MD [facility] CPT-49922 Level 4 Est. Patient 14:28:34 CDT Tu Landeros MD [facility] CPT-19333 Level 3 Est. Patient 13:33:09 CDT Tu Landeros MD [facility] CPT-28943 Level 4 Est. Patient 14:29:21 CDT Tu Landeros MD [facility] CPT-09489 Level 4 Est. Patient 09:08:17 SIGNAL APPRENTICE Tu Landeros MD [facility] CPT-73095 Level 4 Est. Patient 14:40:19 CDT Tu Landeros MD [facility] CPT-23664 Level 4 Est. Patient 14:06:04 SIGNAL APPRENTICE Tu Landeros MD [facility] CPT-74078 Level 3 Est. Patient 14:05:18 SIGNAL APPRENTICE Tu Landeros MD [facility] CPT-28097 Level 3 Est. Patient 10:06:54 SIGNAL APPRENTICE Miranda Suresh APRN [facility] CPT-50164 Level 4 Est. Patient 13:50:18 SIGNAL APPRENTICE Tu Landeros MD [facility] CPT-73060 Level 3 Est. Patient 10:30:04 CDT Tu Landeros MD [facility] CPT-53356 Level 4 Est. Patient 11:03:38 CDT Tu Landeros MD [facility] CPT-76550 Level 3 Est. Patient 10:20:44 CDT Fab Morales DO [facility] CPT-06777 Level 4 Est. Patient 14:38:57 CDT Tu Landeros MD [facility] CPT-56553 Level 4 Est. Patient 14:27:39 SIGNAL APPRENTICE Tu Landeros MD [facility] CPT-78385 Level 4 Est. Patient 09:45:25 CDT Tu Landeros MD [facility] CPT-31235 Level 4 Est. Patient 09:05:20 SIGNAL APPRENTICE Tu Landeros MD [facility] CPT-78311 Level 4 Est. Patient 14:09:06 CDT Tu Landeros MD [facility] CPT-02219 Level 3 Est. Patient 13:36:54 CDT Tu Landeros MD [facility] CPT-38251 Level 3 Est. Patient 08:59:14 CDT Tu Landeros MD [facility] CPT-64015 Level 3 Est. Patient 13:48:35 CDT Fab Morales DO [facility] CPT-61250 Level 4 Est. Patient 10:05:48 CDT Tu Landeros MD [facility] CPT-74581 Level 3 Est. Patient 13:38:42 CDT Marek BANKS [facility] CPT-87219 Level 5 Est. Patient 08:08:39 CDT Jerrica FRANCIS [facility] CPT-30903 Level 4 Est. Patient 14:23:38 CDT Tu Landeros MD [facility] CPT-79415 Level 3 Est. Patient 11:44:04 CDT uT Landeros MD [facility] CPT-37021 Level 3 Est. Patient 11:03:20 SIGNAL APPRENTICE Tu Landeros MD [facility] CPT-67900 Level 3 Est. Patient 11:03:14 SIGNAL APPRENTICE Tu Landeros MD [facility] CPT-92423 Level 3 Est. Patient 12:42:49 CDT Tu Landeros MD [facility] CPT-20988 Level 3 Est. Patient 11:52:06 CDT Tu Landeros MD [facility] CPT-75210 Level 3 Est. Patient 13:58:11 CDT Tu Landeros MD [facility] CPT-12073 Level 3 Est. Patient 17:50:07 CDT Fab Morales DO [facility] CPT-56695 Level 3 Est. Patient 12:06:29 CDT Elvira Cervantes MD, PhD [facility] CPT-04395 Level 3 Est. Patient 15:50:32 CDT Tu Landeros MD [facility] CPT-79596 Level 4 Est. Patient 16:08:29 CDT Tu Landeros MD [facility] CPT-16801 Level 3 Est. Patient 16:04:19 CDT Tu Landeros MD [facility] CPT-29493 Level 3 Est. Patient 11:22:30 SIGNAL APPRENTICE Tu Landeros MD [facility] CPT-36198 Level 4 Est. Patient 16:24:02 SIGNAL APPRENTICE Tu Landeros MD [facility] CPT-22301 Level 3 Est. Patient 17:21:23 SIGNAL APPRENTICE Tu Landeros MD [facility] Procedures Code Procedure Name Date Entry Date Standard Description CPT-14408 Shoulder, right, comp min 2V - XRAY USE ONLY 13:50:22 CDT CPT-G0009 Administration of Pneumococcal Vaccine 15:08:26 CDT CPT-83774 Prevnar 13 Intramuscular Suspension 15:08:26 CDT 10/08 CPT-G0439 [facility] Annual Wellness Exam 14:29:22 CDT CPT-42182 Venipuncture Draw Fee 13:15:35 CDT CPT-46928 Magnesium - LAB USE ONLY 11:14:20 SIGNAL APPRENTICE CPT-22694 Lipid - LAB USE ONLY 11:14:20 SIGNAL APPRENTICE CPT-64470 HGBA1C - LAB USE ONLY 11:14:20 SIGNAL APPRENTICE CPT-99046 CMP - LAB USE ONLY 11:14:19 SIGNAL APPRENTICE CPT-69955 CBC - LAB USE ONLY 11:14:19 SIGNAL APPRENTICE CPT-84806 Venipuncture Draw Fee 11:14:18 SIGNAL APPRENTICE CPT-01260 First Vx - Ix admin for Medicare patients 16:46:52 CDT CPT-62036 Fluzone Preservative Free Intramuscular Suspension 16:46 :51 CDT CPT-89919 CBC - LAB USE ONLY 17:14:46 CDT CPT-49812 HGBA1C - LAB USE ONLY 17:14:46 CDT CPT-01281 Venipuncture Draw Fee 17:14:46 CDT CPT-G0438 Initial Annual Wellness Exam 14:13:04 CDT CPT-47475 Breathing Tx 10:06:54 SIGNAL APPRENTICE CPT-39542 Postop F/U Visit 10:02:45 CDT CPT-LR Lesion Removal 09:02:56 CDT CPT-JTINJ Asp/Joint Injection 15:51:27 SIGNAL APPRENTICE CPT-OV Office Visit 15:52:02 SIGNAL APPRENTICE CPT-OV Office Visit 15:45:11 CDT CPT-000 Give Zostavax 14:09:06 CDT CPT-64965 Administration single or combination vaccine inc oral 15 :19:04 CDT CPT-41437 Zoster Vaccine (Zostavax) 15:19:04 CDT CPT-99722 Administration single or combination vaccine inc oral 20 :51:03 CDT CPT-18815 Influenza split virus > age 3 20:51:03 CDT CPT-33290 No Charge Offi Visit 14:52:03 CDT CPT-OV Office Visit 14:57:43 CDT CPT-OV Office Visit 15:22:32 CDT CPT-90312 Administration single or combination vaccine inc oral 11 :33:15 CDT CPT-31682 Influenza split virus > age 3 11:33:15 CDT
--- OUTSIDE RECORDS SUMMARY | 2018-04-25 12:31 | XMS REPORT | Clinical Summary ---
Author Author Admin, SACHI Organization [employer] Address Unknown Phone Unavailable Allergies, Adverse Reactions, [...] MD Benign essential hypertension Hypertension 401.9 Inactive uT Landeros MD Unspecified essential hypertension Hypertension, benign [...] specified Osteoarthritis, knees, bilateral 715.96 Active Tu Lanedros MD Osteoarthrosis, unspecified whether generalized or localized, [...] CAPSULE 1 po TID PRN Pain INDOMETHACIN 98988583483 Active Tu Landeros MD Active PROMETHAZINE-CODEINE 6.25-10 MG/5ML ORAL SYRUP 5ml po q6hr PRN Cough PROMETHAZINE-CODEINE 29894452259 No Longer Active Tu Landeros MD Active AZITHROMYCIN 250 MG ORAL TABLET 2 po qd x 1, then 1 po qd x 4 AZITHROMYCIN 15804560686 No Longer Active Tu Landeros MD Active GUAIFENESIN ER 600 MG ORAL TABLET EXTENDED RELEASE 12 HOUR 1 twice a day as needed for congestion GUAIFENESIN 21273353067 No Longer Active Tu Landeros MD Active PREDNISONE 20 MG ORAL TABLET 2 po qd x 5 days PREDNISONE 32843831103 No Longer Active Tu Landeros MD Active FLUTICASONE PROPIONATE 50 MCG/ACT NASAL SUSPENSION 2 sprays/nostril qd PRN Congestion/Allergies FLUTICASONE PROPIONATE 39372928295 Active Tu Landeros MD Active NASONEX 50 MCG/ACT NASAL SUSPENSION 2 actuations in each nostril q day 07/15 MOMETASONE FUROATE 50552416021 No Longer Active Tu Landeros MD Active MAGNESIUM OXIDE 400 MG ORAL TABLET 1 po BID MAGNESIUM OXIDE 34733406722 Active Tu Landeros MD Active SIMVASTATIN 20 MG ORAL TABLET 0.5 po qHS SIMVASTATIN 85004261757 Active Tu Landeros MD Active DICLOFENAC SODIUM 75 MG ORAL TABLET DELAYED RELEASE 1 po BID PRN Pain DICLOFENAC SODIUM 47093298118 No Longer Active Tu Landeros MD Active GABAPENTIN 100 MG ORAL CAPSULE 1 po TID GABAPENTIN 51342315503 Active Tu Landeros MD Active DICLOFENAC SODIUM 50 MG ORAL TABLET DELAYED RELEASE 1 po BID PRN Pain DICLOFENAC SODIUM 53506933094 No Longer Active Tu Landeros MD Active CYCLOBENZAPRINE HCL 10 MG ORAL TABLET 1 po TID PRN Muscle Spasm CYCLOBENZAPRINE HCL 18629934588 No Longer Active Tu Landeros MD Active INVOKANA 100 MG ORAL TABLET 1 po qd CANAGLIFLOZIN 55963868443 Active José Luis Becerra MD Active GLIPIZIDE 5 MG ORAL TABLET 1 po qd GLIPIZIDE 58319201877 No Longer Active uT Landeros MD Active VENLAFAXINE HCL 75 MG ORAL TABLET 1 po BID VENLAFAXINE HCL 18886110610 Active Tu Landeros MD Active GLIMEPIRIDE 1 MG ORAL TABLET 1 po qd GLIMEPIRIDE 07310341103 No Longer Active Tu Landeros MD Active TRUE METRIX BLOOD GLUCOSE TEST IN VITRO STRIP Test blood sugar BID Dx: E11.9 GLUCOSE BLOOD 31745192357 Active Tu Landeros MD Active TRUE METRIX AIR GLUCOSE METER w/Device KIT Test blood glucose BID Dx: E11.9 BLOOD GLUCOSE MONITORING SUPPL 82020685894 Active Tu Landeros MD Active TRUETEST TEST IN VITRO STRIP test blood sugar twice daily. DX 250.0 GLUCOSE BLOOD 69547368696 No Longer Active Mirna Stanley LPN Active TRUEDRAW LANCING DEVICE test blood sugar twice daily dx: 250.00 LANCET DEVICES 60359442759 No Longer Active Mirna Stanley LPN Active ENALAPRIL MALEATE 20 MG ORAL TABLET 2 po qd ENALAPRIL MALEATE 41175047874 Active Tu Landeros MD Active SUPER B COMPLEX/VITAMIN C ORAL TABLET 1 qd B COMPLEX- C 09248249520 No Longer Active Tu Landeros MD Active ASPIRIN EC 81 MG ORAL TABLET DELAYED RELEASE 1 po qd ASPIRIN 43351027704 Active Tu Landeros MD Active GLUCOSAMINE 500 MG TABS 2 po qd GLUCOSAMINE Active Tu Landeros MD Active FISH OIL 1000 MG ORAL CAPSULE 1 po qd OMEGA-3 FATTY ACIDS 75088570967 Active Tu Landeros MD Active METFORMIN HCL 1000 MG ORAL TABLET 1 po BID METFORMIN HCL 52834799752 Active Tu Landeros MD Active KLOR-CON 10 10 MEQ ORAL TABLET EXTENDED RELEASE 2 po qd POTASSIUM CHLORIDE 06680130670 Active Tu Landeros MD Active FUROSEMIDE 40 MG ORAL TABLET 1 po qd FUROSEMIDE 86777581069 Active uT Lanedros MD Active REQUIP 2 MG ORAL TABLET 1 po qHS PRN Restless legs ROPINIROLE HCL 68861166331 Active Tu Landeros MD Active REQUIP 2 MG ORAL TABLET Take one tablet at bedtime prn ROPINIROLE HCL 20006699330 No Longer Active Tu Landeros MD Active VENTOLIN HFA 108 (90 Base) MCG/ACT INHALATION AEROSOL SOLUTION 1-2 puffs every 4 hours if needed for cough/congestion ALBUTEROL SULFATE 91910366515 No Longer Active Ambika Aden APRN Active ZITHROMAX 250 MG ORAL TABLET 2 po today, then 1 po q days 2-5 AZITHROMYCIN 42696720876 No Longer Active Miranda Farah APRN Active FLONASE 50 MCG/ACT NASAL SUSPENSION 1 spray each nostril twice daily until bottle empty FLUTICASONE PROPIONATE 57743537396 No Longer Active Tu aLnderos MD Active COLACE 100 MG ORAL CAPSULE 1 po BID PRN Constipation DOCUSATE SODIUM 18335483695 Active Tu Landeros MD Active TRUERESULT BLOOD GLUCOSE w/Device KIT test blood sugar twice daily dx 250.00 BLOOD GLUCOSE MONITORING SUPPL 64089588302 No Longer Active Tu Landeros MD Active TRUEDRAW LANCING DEVICE Test twice a day dx 250.0 LANCET DEVICES 85109617773 No Longer Active Tu Landeros MD Active PREDNISONE 20 MG ORAL TABLET 2 tablets once daily for 2 days, then 1 tablet once daily for 2 days PREDNISONE 84406660274 No Longer Active Tu Landeros MD Active DICLOFENAC SODIUM 50 MG ORAL TABLET DELAYED RELEASE 1 tablet by mouth three times a day as needed DICLOFENAC SODIUM 78759766418 No Longer Active Fab Morales DO Active EMBRACE BLOOD GLUCOSE TEST IN VITRO STRIP test blood sugar twice daily DX 250.0 GLUCOSE BLOOD 52012295369 No Longer Active Tu Landeros MD Active TRUETEST TEST IN VITRO STRIP test blood sugar three times daily dx: 250.00 GLUCOSE BLOOD 23161225812 No Longer Active Suzebianca VOGEL Active TRUERESULT BLOOD GLUCOSE w/Device KIT use to test blood sugar tid dx: 250.00 BLOOD GLUCOSE MONITORING SUPPL 94499598728 No Longer Active Suze Corey NURYSA Active ALIGN 4 MG ORAL CAPSULE 1 tid PROBIOTIC PRODUCT 59538387846 No Longer Active Shaun Sy MD Active CIPRO 500 MG ORAL TABLET 1 bid x 14 days start 09-28-13 CIPROFLOXACIN HCL 63507286109 No Longer Active Shaun Sy MD Active TRAMADOL HCL 50 MG ORAL TABLET 1-2 tablets every 6 hours as needed for pain TRAMADOL HCL 54928945621 Active Tu Landeros MD Active HYDROCODONE-ACETAMINOPHEN 5-325 MG ORAL TABLET 1 tab by mouth every 6 hours as needed for pain HYDROCODONE-ACETAMINOPHEN 12373055723 No Longer Active Tu Landeros MD Active OMEPRAZOLE 20 MG ORAL CAPSULE DELAYED RELEASE 1 po q a.m. OMEPRAZOLE 17372947683 Active Tu Landeros MD Active GABAPENTIN 100 MG ORAL CAPSULE 1 po bid GABAPENTIN 95528858458 No Longer Active Tu Landeros MD Active B-12 100 MCG ORAL TABLET Take one by mouth daily CYANOCOBALAMIN 09152658152 No Longer Active Tu Landeros MD Active BACTRIM DS 800-160 MG ORAL TABLET 1 bid x 14 day start 09-28-13 SULFAMETHOXAZOLE-TRIMETHOPRIM 07413846052 No Longer Active Tu Landeros MD Active CARVEDILOL 12.5 MG ORAL TABLET 1 po BID CARVEDILOL 67687140030 Active Tu Landeros MD Active TRILIPIX 135 MG ORAL CAPSULE DELAYED RELEASE 1 q hs CHOLINE FENOFIBRATE 78303105357 Active Tu Landeros MD Active FENOFIBRATE 145 MG ORAL TABLET 1 po qd FENOFIBRATE 06976543994 No Longer Active JASPREET Perez Active OMEPRAZOLE 20 MG ORAL TABLET DELAYED RELEASE 1 PO 30 MIN BEFORE 1ST MEAL 2010 OMEPRAZOLE 57715808896 No Longer Active JASPREET Perez Active SIMVASTATIN 40 MG ORAL TABLET Take one by mouth daily SIMVASTATIN 73393145130 No Longer Active JASPREET Perez Active VENLAFAXINE HCL 75 MG ORAL TABLET 1 po BID VENLAFAXINE HCL 13689866404 No Longer Active JASPREET Perez Active CIPRO 500 MG ORAL TABLET 1 tablet by mouth twice daily CIPROFLOXACIN HCL 08522211097 No Longer Active Tu Landeros MD Active VENLAFAXINE HCL 37.5 MG ORAL TABLET 1 po BID VENLAFAXINE HCL 49454249663 No Longer Active Suze Nicole A Active LAMISIL 250 MG ORAL TABLET 1 po qd TERBINAFINE HCL 09456712015 No Longer Active Tu Landeros MD Active LORTAB 5-500 MG ORAL TABLET 1/2 to 1 tablet by mouth every 4 hours as needed for pain HYDROCODONE-ACETAMINOPHEN 43020043177 No Longer Active Tu Landeros MD Active HYDROCODONE-ACETAMINOPHEN 5-500 MG ORAL TABLET take one po Q 4-6 hours prn HYDROCODONE-ACETAMINOPHEN 41331908436 No Longer Active Tu Landeros MD Active BACTRIM DS 800-160 MG ORAL TABLET 1 po BID x 7 days SULFAMETHOXAZOLE-TRIMETHOPRIM 57479712023 No Longer Active Tu Landeros MD Active VENLAFAXINE HCL 75 MG ORAL TABLET 1 po BID VENLAFAXINE HCL 93558101645 No Longer Active Elvira Cervantes MD PhD Active TRAMADOL HCL 50 MG ORAL TABLET 1 tablets every 6 hours as needed for pain TRAMADOL HCL 87013740451 No Longer Active Tu Landeros MD Active ACCU-CHEK FASTCLIX LANCETS Use to check bloodsugar three times daily as needed LANCETS 65736476712 No Longer Active Tu Landeros MD Active ACCU-CHEK KEYONA PLUS IN VITRO STRIP Use for testing bloodsugars three times daily as needed GLUCOSE BLOOD 47861328297 No Longer Active Tu Landeros MD Active ACCU-CHEK KEYONA PLUS w/Device KIT Use for testing bloodsugars three times daily as needed BLOOD GLUCOSE MONITORING SUPPL 99407135909 No Longer Active Tu Landeros MD Active SPIRONOLACTONE 25 MG ORAL TABLET 0.5 tablet by mouth daily 09/09 SPIRONOLACTONE 18178898685 No Longer Active Tu Landeros MD Active ALPRAZOLAM 0.5 MG ORAL TABLET 1 tab every 6hrs as needed ALPRAZOLAM 88914084088 No Longer Active Tu Landeros MD Active AUGMENTIN 875-125 MG ORAL TABLET 1 tab by mouth twice daily with food AMOXICILLIN-POT CLAVULANATE 97380902863 No Longer Active Tu Landeros MD Active PREDNISONE 20 MG ORAL TABLET 2 tabs daily for 3 days, 1 tab daily for 3 days, 1/2 tab daily for 2 days PREDNISONE 64339243496 No Longer Active Tu Landeros MD Active XANAX 0.5 MG ORAL TABLET 1 tablet every 6 hrs prn ALPRAZOLAM 62484110327 No Longer Active Tu Landeros MD Active PREDNISONE 20 MG ORAL TABLET 2 tabs daily for 3 days, 1 tab daily for 3 days, 1/2 tab daily for 2 days PREDNISONE 68238567205 No Longer Active Tu Landeros MD Active TRIAMCINOLONE ACETONIDE 0.1 % EXTERNAL OINTMENT Apply to affected areas TID for up to 2 weeks TRIAMCINOLONE ACETONIDE 80263880027 No Longer Active Tu Landeros MD Active LORTAB 5-500 MG ORAL TABLET 1/2 to 1 tablet by mouth every 4 hours as needed for pain HYDROCODONE-ACETAMINOPHEN 62786124309 No Longer Active Tu Landeros MD Active MULTIVITAMINS TABS Take one by mouth daily MULTIPLE VITAMIN 53428863469 No Longer Active Tu Landeros MD Active MELATONIN 5 MG ORAL TABLET Take one by mouth daily MELATONIN 92947687016 No Longer Active Tu Landeros MD Active SOMA 350 MG ORAL TABLET 1 po q 6 hours prn spasm CARISOPRODOL 74011715715 No Longer Active Tu Landeros MD Active MECLIZINE HCL 25 MG ORAL TABLET CHEWABLE 1 four times a day as needed for dizziness MECLIZINE HCL 27909281600 No Longer Active Fab Morales DO Active ANGEL BREEZE 2 TEST IN VITRO DISK test tid prn GLUCOSE BLOOD 11122636209 No Longer Active Negra Scott MICHAEL Active REGLAN 10 MG ORAL TABLET 1 po TID PRN Nausea METOCLOPRAMIDE HCL 73103357743 No Longer Active Tu Landeros MD Active METFORMIN HCL 500 MG ORAL TABLET 1 PO BID METFORMIN HCL 49989265056 No Longer Active Tu Landeros MD Active AMBIEN 10 MG ORAL TABLET 1 tab by mouth at bedtime as needed for sleep 06/10 ZOLPIDEM TARTRATE 48090350067 No Longer Active Tu Landeros MD Active FLUOXETINE HCL 40 MG ORAL CAPSULE 1 po q day FLUOXETINE HCL 80183883586 No Longer Active Mayra Terry Active TRILIPIX 135 MG ORAL CAPSULE DELAYED RELEASE 1 po qd CHOLINE FENOFIBRATE 61639465015 No Longer Active Tu Landeros MD Active AMBIEN 10 MG ORAL TABLET 1 tab by mouth at bedtime as needed for sleep 06/10 AMBIEN 10 MG ORAL TABLET 670848 ZOLPIDEM TARTRATE Inactive METFORMIN HCL 500 MG ORAL TABLET 1 PO BID METFORMIN HCL 500 MG ORAL TABLET 299518 METFORMIN HCL Inactive REGLAN 10 MG ORAL TABLET 1 po TID PRN Nausea REGLAN 10 MG ORAL TABLET 381582 METOCLOPRAMIDE HCL Inactive MECLIZINE HCL 25 MG ORAL TABLET CHEWABLE 1 four times a day as needed for dizziness MECLIZINE HCL 25 MG ORAL TABLET CHEWABLE 076080 MECLIZINE HCL Inactive SOMA 350 MG ORAL TABLET 1 po q 6 hours prn spasm SOMA 350 MG ORAL TABLET 336938 CARISOPRODOL Inactive MELATONIN 5 MG ORAL TABLET Take one by mouth daily MELATONIN 5 MG ORAL TABLET 104376 MELATONIN Inactive MULTIVITAMINS TABS Take one by mouth daily MULTIVITAMINS TABS MULTIPLE VITAMIN Inactive LORTAB 5-500 MG ORAL TABLET 1/2 to 1 tablet by mouth every 4 hours as needed for pain LORTAB 5-500 MG ORAL TABLET HYDROCODONE- ACETAMINOPHEN Inactive XANAX 0.5 MG ORAL TABLET 1 tablet every 6 hrs prn XANAX 0.5 MG ORAL TABLET 015165 ALPRAZOLAM Inactive AUGMENTIN 875-125 MG ORAL TABLET 1 tab by mouth twice daily with food AUGMENTIN 875-125 MG ORAL TABLET 076169 AMOXICILLIN-POT CLAVULANATE Inactive ALPRAZOLAM 0.5 MG ORAL TABLET 1 tab every 6hrs as needed ALPRAZOLAM 0.5 MG ORAL TABLET 081011 ALPRAZOLAM Inactive SPIRONOLACTONE 25 MG ORAL TABLET 0.5 tablet by mouth daily 09/09 SPIRONOLACTONE 25 MG ORAL TABLET 016462 SPIRONOLACTONE Inactive ACCU-CHEK KEYONA PLUS w/Device KIT [...] times daily as needed ACCU-CHEK FASTCLIX LANCETS 64792864178 LANCETS Inactive TRAMADOL HCL 50 MG ORAL TABLET 1 tablets every 6 hours as needed for pain TRAMADOL HCL 50 MG ORAL TABLET 368352 TRAMADOL HCL Inactive VENLAFAXINE HCL 75 MG ORAL TABLET 1 po BID VENLAFAXINE HCL 75 MG ORAL TABLET 148439 VENLAFAXINE HCL Inactive HYDROCODONE-ACETAMINOPHEN 5-500 MG ORAL TABLET take one po Q 4-6 hours prn HYDROCODONE-ACETAMINOPHEN 5-500 MG ORAL TABLET HYDROCODONE-ACETAMINOPHEN Inactive LORTAB 5-500 MG ORAL TABLET 1/2 to 1 tablet by mouth every 4 hours as needed for pain LORTAB 5-500 MG ORAL TABLET HYDROCODONE- ACETAMINOPHEN Inactive LAMISIL 250 MG ORAL TABLET 1 po qd LAMISIL 250 MG ORAL TABLET 591518 TERBINAFINE HCL Inactive VENLAFAXINE HCL 37.5 MG ORAL TABLET 1 po BID VENLAFAXINE HCL 37.5 MG ORAL TABLET 885474 VENLAFAXINE HCL Inactive CIPRO 500 MG ORAL TABLET 1 tablet by mouth twice daily CIPRO 500 MG ORAL TABLET 062163 CIPROFLOXACIN HCL Inactive VENLAFAXINE HCL 75 MG ORAL TABLET 1 po BID VENLAFAXINE HCL 75 MG ORAL TABLET 325459 VENLAFAXINE HCL Inactive SIMVASTATIN 40 MG ORAL TABLET Take one by mouth daily SIMVASTATIN 40 MG ORAL TABLET 012649 SIMVASTATIN Inactive OMEPRAZOLE 20 MG ORAL TABLET DELAYED RELEASE 1 PO 30 MIN BEFORE 1ST MEAL 2010 OMEPRAZOLE 20 MG ORAL TABLET DELAYED RELEASE 473511 OMEPRAZOLE Inactive FENOFIBRATE 145 MG ORAL TABLET 1 po qd FENOFIBRATE 145 MG ORAL TABLET 803385 FENOFIBRATE Inactive BACTRIM DS 800-160 MG ORAL TABLET 1 bid x 14 day start 09-28-13 BACTRIM DS 800-160 MG ORAL TABLET 493047 SULFAMETHOXAZOLE- TRIMETHOPRIM Inactive B-12 100 MCG ORAL TABLET Take one by mouth daily B-12 100 MCG ORAL TABLET CYANOCOBALAMIN Inactive GABAPENTIN 100 MG ORAL CAPSULE 1 po bid GABAPENTIN 100 MG ORAL CAPSULE 829116 GABAPENTIN Inactive HYDROCODONE-ACETAMINOPHEN 5-325 MG ORAL TABLET 1 tab by mouth every 6 hours as needed for pain HYDROCODONE-ACETAMINOPHEN 5-325 MG ORAL TABLET 469191 HYDROCODONE-ACETAMINOPHEN Inactive CIPRO 500 MG ORAL TABLET 1 bid x 14 days start 09-28-13 CIPRO 500 MG ORAL TABLET 764678 CIPROFLOXACIN HCL Inactive ALIGN 4 MG ORAL [...] SODIUM 50 MG ORAL TABLET DELAYED RELEASE 355545 DICLOFENAC SODIUM Inactive PREDNISONE 20 MG ORAL TABLET 2 tablets once daily for 2 days, then 1 tablet once daily for 2 days PREDNISONE 20 MG ORAL TABLET 724760 PREDNISONE Inactive TRUEDRAW LANCING DEVICE Test twice a day dx 250.0 TRUEDRAW LANCING DEVICE LANCET DEVICES Inactive TRUERESULT BLOOD GLUCOSE w/Device KIT test blood sugar twice daily dx 250.00 TRUERESULT BLOOD GLUCOSE w/Device KIT BLOOD GLUCOSE MONITORING SUPPL Inactive FLONASE 50 MCG/ACT NASAL SUSPENSION 1 spray each nostril twice daily until bottle empty FLONASE 50 MCG/ACT NASAL SUSPENSION 3037957 FLUTICASONE PROPIONATE Inactive VENTOLIN HFA 108 (90 Base) MCG/ACT INHALATION AEROSOL SOLUTION 1-2 puffs every 4 hours if needed for cough/congestion VENTOLIN HFA 108 (90 Base) MCG/ACT INHALATION AEROSOL SOLUTION ALBUTEROL SULFATE Inactive REQUIP 2 MG ORAL TABLET Take one tablet at bedtime prn REQUIP 2 MG ORAL TABLET 416317 ROPINIROLE HCL Inactive SUPER B COMPLEX/VITAMIN C ORAL TABLET 1 qd SUPER B COMPLEX/VITAMIN C ORAL TABLET 44752442989 B COMPLEX-C Inactive TRUEDRAW LANCING DEVICE test blood sugar twice daily dx: 250.00 TRUEDRAW LANCING DEVICE LANCET DEVICES Inactive TRUETEST TEST IN VITRO STRIP test blood sugar twice daily. DX 250.0 TRUETEST TEST IN VITRO STRIP GLUCOSE BLOOD Inactive CYCLOBENZAPRINE HCL 10 MG ORAL TABLET 1 po TID PRN Muscle Spasm CYCLOBENZAPRINE HCL 10 MG ORAL TABLET 904864 CYCLOBENZAPRINE HCL Inactive DICLOFENAC SODIUM 50 MG ORAL TABLET DELAYED RELEASE 1 po BID PRN Pain DICLOFENAC SODIUM 50 MG ORAL TABLET DELAYED RELEASE 731388 DICLOFENAC SODIUM Inactive DICLOFENAC SODIUM 75 MG ORAL TABLET DELAYED RELEASE 1 po BID PRN Pain DICLOFENAC SODIUM 75 MG ORAL TABLET DELAYED RELEASE 207753 DICLOFENAC SODIUM Inactive NASONEX 50 MCG/ACT NASAL SUSPENSION 2 actuations in each nostril q day 07/15 NASONEX 50 MCG/ACT NASAL SUSPENSION 2963599 MOMETASONE FUROATE Inactive GUAIFENESIN ER 600 MG ORAL TABLET EXTENDED RELEASE 12 HOUR 1 twice a day as needed for congestion GUAIFENESIN ER 600 MG ORAL TABLET EXTENDED RELEASE 12 HOUR GUAIFENESIN Inactive AZITHROMYCIN 250 MG ORAL TABLET 2 po qd x 1, then 1 po qd x 4 AZITHROMYCIN 250 MG ORAL TABLET 983562 AZITHROMYCIN Inactive PROMETHAZINE-CODEINE 6.25-10 MG/5ML ORAL SYRUP 5ml po q6hr PRN Cough PROMETHAZINE-CODEINE 6.25-10 MG/5ML ORAL SYRUP 244540 PROMETHAZINE-CODEINE Inactive TRIAMCINOLONE ACETONIDE 0.1 % EXTERNAL OINTMENT Apply to affected areas TID for up to 2 weeks TRIAMCINOLONE ACETONIDE 0.1 % EXTERNAL OINTMENT 1689253 TRIAMCINOLONE ACETONIDE Inactive PREDNISONE 20 MG ORAL TABLET 2 tabs daily for 3 days, 1 tab daily for 3 days, 1/2 tab daily for 2 days PREDNISONE 20 MG ORAL TABLET 643247 PREDNISONE Inactive PREDNISONE 20 MG ORAL TABLET 2 tabs daily for 3 days, 1 tab daily for 3 days, 1/2 tab daily for 2 days PREDNISONE 20 MG ORAL TABLET 428847 PREDNISONE Inactive BACTRIM DS 800-160 MG ORAL TABLET 1 po BID x 7 days BACTRIM DS 800-160 MG ORAL TABLET 317430 SULFAMETHOXAZOLE-TRIMETHOPRIM Inactive ZITHROMAX 250 MG ORAL TABLET 2 po today, then 1 po q days 2-5 ZITHROMAX 250 MG ORAL TABLET 925233 AZITHROMYCIN Inactive PREDNISONE 20 MG ORAL TABLET 2 po qd x 5 days PREDNISONE 20 MG ORAL TABLET 230598 PREDNISONE Inactive Advance Directives Directive Description Start Date DISCUSSED WITH PATIENT -- NO DECISION MADE Immunizations Vaccine Administration Date Value Standard Description Seasonal influenza vaccine, injectable, containing preservative, for > 3 years old (Afluria, FluLaval, Fluzone, Fluvirin, Fluarix, Agriflu(>=18 yo)) Fluzone (>3 yrs.) [QMC880] Influenza, seasonal, injectable influenza immunization (Flu Vax) has been administered 02/22/2012 influenza virus vaccine, unspecified formulation Seasonal influenza vaccine, injectable, containing preservative, for > 3 years old (Afluria, FluLaval, Fluzone, Fluvirin, Fluarix, Agriflu(>=18 yo)) Fluzone (>3 yrs.) [VMP820] Influenza, seasonal, injectable Vital Signs Date Name [...] ... - Chemistry sodium, serum 141 mmol/L 450-690 1552/01/16 carbon dioxide, venous blood 28.3 mmol/L 21.0-32.0 [...] 6.7 % 4.3-6.0 cholesterol, serum 106 mg/dL 283-335 5674/01/16 triglyceride, serum, fasting 173 mg/dL 30-200 HDL [...] 4.3-6.0 Encounters Code Encounter Date Provider Facility CPT-12649 Level 3 Est. Patient 10:28:05 CDT Tu Landeros MD [facility] CPT-74176 Level 3 Est. Patient 09:11:32 CDT Tu Landeros MD [facility] CPT-29365 Level 3 Est. Patient 10:13:19 CUSHION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 Lesli Kellogg APRN [facility] CPT-68834 Level 4 Est. Patient 13:42:02 CUSHION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 Tu Landeros MD [facility] CPT-42193 Level 3 Est. Patient 14:20:36 CDT Tu Landeros MD [facility] CPT-01624 Level 4 Est. Patient 14:28:34 CDT Tu Landeros MD [facility] CPT-04086 Level 3 Est. Patient 13:33:09 CDT Tu Landeros MD [facility] CPT-30315 Level 4 Est. Patient 14:29:21 CDT Tu Landeros MD [facility] CPT-70472 Level 4 Est. Patient 09:08:17 CUSHION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 Tu Landeros MD [facility] CPT-09305 Level 4 Est. Patient 14:40:19 CDT Tu Landeros MD [facility] CPT-52664 Level 4 Est. Patient 14:06:04 CUSHION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 Tu Landeros MD [facility] CPT-99431 Level 3 Est. Patient 14:05:18 CUSHION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 Tu Landeors MD [facility] CPT-31727 Level 3 Est. Patient 10:06:54 CUSHION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 Miranda Farah APRN [facility] CPT-02304 Level 4 Est. Patient 13:50:18 CUSHION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 Tu Landeros MD [facility] CPT-63566 Level 3 Est. Patient 10:30:04 CDT Tu Landeros MD [facility] CPT-11559 Level 4 Est. Patient 11:03:38 CDT Tu Landeros MD [facility] CPT-49034 Level 3 Est. Patient 10:20:44 CDT Fab Morales DO [facility] CPT-50595 Level 4 Est. Patient 14:38:57 CDT Tu Landeros MD [facility] CPT-87108 Level 4 Est. Patient 14:27:39 CUSHION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 Tu Landeros MD [facility] CPT-14114 Level 4 Est. Patient 09:45:25 CDT Tu Landeros MD [facility] CPT-20456 Level 4 Est. Patient 09:05:20 CUSHION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 Tu Landeros MD [facility] CPT-04695 Level 4 Est. Patient 14:09:06 CDT Tu Landeros MD [facility] CPT-49313 Level 3 Est. Patient 13:36:54 CDT Tu Landeros MD [facility] CPT-67654 Level 3 Est. Patient 08:59:14 CDT Tu Landeros MD [facility] CPT-24793 Level 3 Est. Patient 13:48:35 CDT Fab Morales DO [facility] CPT-28284 Level 4 Est. Patient 10:05:48 CDT Tu Landeros MD [facility] CPT-95558 Level 3 Est. Patient 13:38:42 CDT Marek BANKS [facility] CPT-81293 Level 5 Est. Patient 08:08:39 CDT Piyushrichajanelle Dawsontay FRANCIS [facility] CPT-31092 Level 4 Est. Patient 14:23:38 CDT Tu Landeros MD [facility] CPT-13451 Level 3 Est. Patient 11:44:04 CDT Tu Landeros MD [facility] CPT-33988 Level 3 Est. Patient 11:03:20 CUSHION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 Tu Landeros MD [facility] CPT-85095 Level 3 Est. Patient 11:03:14 CUSHION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 Tu Landeros MD [facility] CPT-68302 Level 3 Est. Patient 12:42:49 CDT Tu Landeros MD [facility] CPT-98566 Level 3 Est. Patient 11:52:06 CDT Tu aLnderos MD [facility] CPT-51035 Level 3 Est. Patient 13:58:11 CDT Tu Landeros MD [facility] CPT-25318 Level 3 Est. Patient 17:50:07 CDT Fab Morales DO [facility] CPT-63090 Level 3 Est. Patient 12:06:29 CDT Elvira Cervantes MD PhD [facility] CPT-83965 Level 3 Est. Patient 15:50:32 CDT Tu Landeros MD [facility] CPT-90114 Level 4 Est. Patient 16:08:29 CDT Tu Landeros MD [facility] CPT-91737 Level 3 Est. Patient 16:04:19 CDT Tu Landeros MD [facility] CPT-03987 Level 3 Est. Patient 11:22:30 CUSHION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 Tu Landeros MD [facility] CPT-95051 Level 4 Est. Patient 16:24:02 CUSHION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 Tu Landeros MD [facility] CPT-48995 Level 3 Est. Patient 17:21:23 CUSHION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 Tu Landeros MD [facility] Procedures Code Procedure Name Date Entry Date Standard Description CPT-31391 Shoulder, right, comp min 2V - XRAY USE ONLY 13:50:22 CDT CPT-G0009 Administration of Pneumococcal Vaccine 15:08:26 CDT CPT-56980 Prevnar 13 Intramuscular Suspension 15:08:26 CDT 10/08 CPT-G0439 [facility] Annual Wellness Exam 14:29:22 CDT CPT-74437 Venipuncture Draw Fee 13:15:35 CDT CPT-43173 Magnesium - LAB USE ONLY 11:14:20 CUSHION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 CPT-74061 Lipid - LAB USE ONLY 11:14:20 CUSHION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 CPT-38453 HGBA1C - LAB USE ONLY 11:14:20 CUSHION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 CPT-65093 CMP - LAB USE ONLY 11:14:19 CUSHION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 CPT-27259 CBC - LAB USE ONLY 11:14:19 CUSHION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 CPT-72186 Venipuncture Draw Fee 11:14:18 CUSHION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 CPT-51237 First Vx - Ix admin for Medicare patients 16:46:52 CDT CPT-96263 Fluzone Preservative Free Intramuscular Suspension 16:46 :51 CDT CPT-95772 CBC - LAB USE ONLY 17:14:46 CDT CPT-38927 HGBA1C - LAB USE ONLY 17:14:46 CDT CPT-20913 Venipuncture Draw Fee 17:14:46 CDT CPT-G0438 Initial Annual Wellness Exam 14:13:04 CDT CPT-54778 Breathing Tx 10:06:54 [employer]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 CPT-83370 Postop F/U Visit 10:02:45 CDT CPT-LR Lesion Removal 09:02:56 CDT CPT-JTINJ Asp/Joint Injection 15:51:27 CUSHION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 CPT-OV Office Visit 15:52:02 CUSHION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 CPT-OV Office Visit 15:45:11 CDT CPT-000 Give Zostavax 14:09:06 CDT CPT-02944 Administration single or combination vaccine inc oral 15 :19:04 CDT CPT-19371 Zoster Vaccine (Zostavax) 15:19:04 CDT CPT-43819 Administration single or combination vaccine inc oral 20 :51:03 CDT CPT-29207 Influenza split virus > age 3 20:51:03 CDT CPT-66850 No Charge Offi Visit 14:52:03 CDT CPT-OV Office Visit 14:57:43 CDT CPT-OV Office Visit 15:22:32 CDT CPT-55199 Administration single or combination vaccine inc oral 11 :33:15 CDT CPT-07603 Influenza split virus > age 3 11:33:15 CDT
--- OUTSIDE RECORDS SUMMARY | 2018-04-25 12:33 | XMS REPORT | Clinical Summary ---
Author Author Admin, SACHI Organization [facility] Address Unknown Phone Unavailable Allergies, Adverse Reactions, [...] parts of trunk, complicated 879.7 Resolved Tu Lnaderos MD Open wound of other and unspecified [...] CAPSULE 1 po TID PRN Pain INDOMETHACIN 80340740396 Active Tu Landeros MD Active PROMETHAZINE-CODEINE 6.25-10 MG/5ML ORAL SYRUP 5ml po q6hr PRN Cough PROMETHAZINE-CODEINE 95226028208 No Longer Active Tu Landeros MD Active AZITHROMYCIN 250 MG ORAL TABLET 2 po qd x 1, then 1 po qd x 4 AZITHROMYCIN 04061940962 No Longer Active Tu Landeros MD Active GUAIFENESIN ER 600 MG ORAL TABLET EXTENDED RELEASE 12 HOUR 1 twice a day as needed for congestion GUAIFENESIN 10360356050 No Longer Active Tu Landeros MD Active PREDNISONE 20 MG ORAL TABLET 2 po qd x 5 days PREDNISONE 95558007167 No Longer Active Tu Landeros MD Active FLUTICASONE PROPIONATE 50 MCG/ACT NASAL SUSPENSION 2 sprays/nostril qd PRN Congestion/Allergies FLUTICASONE PROPIONATE 26648743747 Active Tu Landeros MD Active NASONEX 50 MCG/ACT NASAL SUSPENSION 2 actuations in each nostril q day 07/15 MOMETASONE FUROATE 36066381242 No Longer Active Tu Landeros MD Active MAGNESIUM OXIDE 400 MG ORAL TABLET 1 po BID MAGNESIUM OXIDE 99811486093 Active Tu Landeros MD Active SIMVASTATIN 20 MG ORAL TABLET 0.5 po qHS SIMVASTATIN 12624078748 Active Tu Landeros MD Active DICLOFENAC SODIUM 75 MG ORAL TABLET DELAYED RELEASE 1 po BID PRN Pain DICLOFENAC SODIUM 84621999466 No Longer Active Tu Landeros MD Active GABAPENTIN 100 MG ORAL CAPSULE 1 po TID GABAPENTIN 80920152807 Active Tu Landeros MD Active DICLOFENAC SODIUM 50 MG ORAL TABLET DELAYED RELEASE 1 po BID PRN Pain DICLOFENAC SODIUM 38443190766 No Longer Active Tu Landeros MD Active CYCLOBENZAPRINE HCL 10 MG ORAL TABLET 1 po TID PRN Muscle Spasm CYCLOBENZAPRINE HCL 21103763120 No Longer Active Tu Landeros MD Active INVOKANA 100 MG ORAL TABLET 1 po qd CANAGLIFLOZIN 84697750999 Active José Luis Becerra MD Active GLIPIZIDE 5 MG ORAL TABLET 1 po qd GLIPIZIDE 71709488479 No Longer Active Tu Landeros MD Active VENLAFAXINE HCL 75 MG ORAL TABLET 1 po BID VENLAFAXINE HCL 06119074680 Active Tu Landeros MD Active GLIMEPIRIDE 1 MG ORAL TABLET 1 po qd GLIMEPIRIDE 14506208277 No Longer Active Tu Landeros MD Active TRUE METRIX BLOOD GLUCOSE TEST IN VITRO STRIP Test blood sugar BID Dx: E11.9 GLUCOSE BLOOD 77427919810 Active Tu Landeros MD Active TRUE METRIX AIR GLUCOSE METER w/Device KIT Test blood glucose BID Dx: E11.9 BLOOD GLUCOSE MONITORING SUPPL 28122639611 Active Tu Landeros MD Active TRUETEST TEST IN VITRO STRIP test blood sugar twice daily. DX 250.0 GLUCOSE BLOOD 63275479944 No Longer Active Mirna Stanley LPN Active TRUEDRAW LANCING DEVICE test blood sugar twice daily dx: 250.00 LANCET DEVICES 54394129143 No Longer Active Mirna Stanley LPN Active ENALAPRIL MALEATE 20 MG ORAL TABLET 2 po qd ENALAPRIL MALEATE 16580008269 Active Tu Landeros MD Active SUPER B COMPLEX/VITAMIN C ORAL TABLET 1 qd B COMPLEX- C 38386622512 No Longer Active Tu Landeros MD Active ASPIRIN EC 81 MG ORAL TABLET DELAYED RELEASE 1 po qd ASPIRIN 63889203243 Active Tu Landeros MD Active GLUCOSAMINE 500 MG TABS 2 po qd GLUCOSAMINE Active Tu Landeros MD Active FISH OIL 1000 MG ORAL CAPSULE 1 po qd OMEGA-3 FATTY ACIDS 10650559989 Active Tu Landeros MD Active METFORMIN HCL 1000 MG ORAL TABLET 1 po BID METFORMIN HCL 70194960476 Active Tu Landeros MD Active KLOR-CON 10 10 MEQ ORAL TABLET EXTENDED RELEASE 2 po qd POTASSIUM CHLORIDE 22952459407 Active Tu Landeros MD Active FUROSEMIDE 40 MG ORAL TABLET 1 po qd FUROSEMIDE 77850200825 Active Tu Landeros MD Active REQUIP 2 MG ORAL TABLET 1 po qHS PRN Restless legs ROPINIROLE HCL 07994976966 Active Tu Landeros MD Active REQUIP 2 MG ORAL TABLET Take one tablet at bedtime prn ROPINIROLE HCL 21836956679 No Longer Active Tu Landeros MD Active VENTOLIN HFA 108 (90 Base) MCG/ACT INHALATION AEROSOL SOLUTION 1-2 puffs every 4 hours if needed for cough/congestion ALBUTEROL SULFATE 35063519526 No Longer Active Ambika Aden APRN Active ZITHROMAX 250 MG ORAL TABLET 2 po today, then 1 po q days 2-5 AZITHROMYCIN 17780630125 No Longer Active Miranda Farah APRN Active FLONASE 50 MCG/ACT NASAL SUSPENSION 1 spray each nostril twice daily until bottle empty FLUTICASONE PROPIONATE 21541363478 No Longer Active Tu Landeros MD Active COLACE 100 MG ORAL CAPSULE 1 po BID PRN Constipation DOCUSATE SODIUM 51757312960 Active Tu Landeros MD Active TRUERESULT BLOOD GLUCOSE w/Device KIT test blood sugar twice daily dx 250.00 BLOOD GLUCOSE MONITORING SUPPL 51797181491 No Longer Active Tu Landeros MD Active TRUEDRAW LANCING DEVICE Test twice a day dx 250.0 LANCET DEVICES 31799226644 No Longer Active Tu Landeros MD Active PREDNISONE 20 MG ORAL TABLET 2 tablets once daily for 2 days, then 1 tablet once daily for 2 days PREDNISONE 66986126831 No Longer Active Tu Landeros MD Active DICLOFENAC SODIUM 50 MG ORAL TABLET DELAYED RELEASE 1 tablet by mouth three times a day as needed DICLOFENAC SODIUM 07799763623 No Longer Active Fab Morales DO Active EMBRACE BLOOD GLUCOSE TEST IN VITRO STRIP test blood sugar twice daily DX 250.0 GLUCOSE BLOOD 98429537833 No Longer Active Tu Landeros MD Active TRUETEST TEST IN VITRO STRIP test blood sugar three times daily dx: 250.00 GLUCOSE BLOOD 49689323768 No Longer Active Suzebianca VOGEL Active TRUERESULT BLOOD GLUCOSE w/Device KIT use to test blood sugar tid dx: 250.00 BLOOD GLUCOSE MONITORING SUPPL 55667552020 No Longer Active Suze Corey NURYSA Active ALIGN 4 MG ORAL CAPSULE 1 tid PROBIOTIC PRODUCT 53819181615 No Longer Active Shaun Sy MD Active CIPRO 500 MG ORAL TABLET 1 bid x 14 days start 09-28-13 CIPROFLOXACIN HCL 75798932136 No Longer Active Shaun Sy MD Active TRAMADOL HCL 50 MG ORAL TABLET 1-2 tablets every 6 hours as needed for pain TRAMADOL HCL 16332174962 Active Tu Landeros MD Active HYDROCODONE-ACETAMINOPHEN 5-325 MG ORAL TABLET 1 tab by mouth every 6 hours as needed for pain HYDROCODONE-ACETAMINOPHEN 22848179990 No Longer Active Tu Landeros MD Active OMEPRAZOLE 20 MG ORAL CAPSULE DELAYED RELEASE 1 po q a.m. OMEPRAZOLE 21212893685 Active Tu Landeros MD Active GABAPENTIN 100 MG ORAL CAPSULE 1 po bid GABAPENTIN 55444047931 No Longer Active Tu Landeros MD Active B-12 100 MCG ORAL TABLET Take one by mouth daily CYANOCOBALAMIN 56734017599 No Longer Active Tu Landeros MD Active BACTRIM DS 800-160 MG ORAL TABLET 1 bid x 14 day start 09-28-13 SULFAMETHOXAZOLE-TRIMETHOPRIM 66773806429 No Longer Active Tu Landeros MD Active CARVEDILOL 12.5 MG ORAL TABLET 1 po BID CARVEDILOL 95888627518 Active Tu Landeros MD Active TRILIPIX 135 MG ORAL CAPSULE DELAYED RELEASE 1 q hs CHOLINE FENOFIBRATE 75610965951 Active Tu Landeros MD Active FENOFIBRATE 145 MG ORAL TABLET 1 po qd FENOFIBRATE 25540564970 No Longer Active JASPREET Perez Active OMEPRAZOLE 20 MG ORAL TABLET DELAYED RELEASE 1 PO 30 MIN BEFORE 1ST MEAL 2010 OMEPRAZOLE 68552496841 No Longer Active JASPREET Perez Active SIMVASTATIN 40 MG ORAL TABLET Take one by mouth daily SIMVASTATIN 85381075741 No Longer Active JASPREET Perez Active VENLAFAXINE HCL 75 MG ORAL TABLET 1 po BID VENLAFAXINE HCL 31359157082 No Longer Active JASPREET Perez Active CIPRO 500 MG ORAL TABLET 1 tablet by mouth twice daily CIPROFLOXACIN HCL 90568264132 No Longer Active Tu Landeros MD Active VENLAFAXINE HCL 37.5 MG ORAL TABLET 1 po BID VENLAFAXINE HCL 99597331151 No Longer Active Suze Nicole A Active LAMISIL 250 MG ORAL TABLET 1 po qd TERBINAFINE HCL 45088754422 No Longer Active Tu Landeros MD Active LORTAB 5-500 MG ORAL TABLET 1/2 to 1 tablet by mouth every 4 hours as needed for pain HYDROCODONE-ACETAMINOPHEN 42741065248 No Longer Active Tu Landeros MD Active HYDROCODONE-ACETAMINOPHEN 5-500 MG ORAL TABLET take one po Q 4-6 hours prn HYDROCODONE-ACETAMINOPHEN 74617149885 No Longer Active Tu Landeros MD Active BACTRIM DS 800-160 MG ORAL TABLET 1 po BID x 7 days SULFAMETHOXAZOLE-TRIMETHOPRIM 62974506247 No Longer Active Tu Landeros MD Active VENLAFAXINE HCL 75 MG ORAL TABLET 1 po BID VENLAFAXINE HCL 91563304571 No Longer Active Elvira Cervantes MD PhD Active TRAMADOL HCL 50 MG ORAL TABLET 1 tablets every 6 hours as needed for pain TRAMADOL HCL 85887764617 No Longer Active Tu Landeros MD Active ACCU-CHEK FASTCLIX LANCETS Use to check bloodsugar three times daily as needed LANCETS 92083997559 No Longer Active Tu Landeros MD Active ACCU-CHEK KEYOAN PLUS IN VITRO STRIP Use for testing bloodsugars three times daily as needed GLUCOSE BLOOD 46025736574 No Longer Active Tu Landeros MD Active ACCU-CHEK KEYONA PLUS w/Device KIT Use for testing bloodsugars three times daily as needed BLOOD GLUCOSE MONITORING SUPPL 09668533042 No Longer Active Tu Landeros MD Active SPIRONOLACTONE 25 MG ORAL TABLET 0.5 tablet by mouth daily 09/09 SPIRONOLACTONE 27941945953 No Longer Active Tu Landeros MD Active ALPRAZOLAM 0.5 MG ORAL TABLET 1 tab every 6hrs as needed ALPRAZOLAM 49756134333 No Longer Active Tu Landeros MD Active AUGMENTIN 875-125 MG ORAL TABLET 1 tab by mouth twice daily with food AMOXICILLIN-POT CLAVULANATE 86892765853 No Longer Active Tu Landeros MD Active PREDNISONE 20 MG ORAL TABLET 2 tabs daily for 3 days, 1 tab daily for 3 days, 1/2 tab daily for 2 days PREDNISONE 00976702320 No Longer Active Tu Landeros MD Active XANAX 0.5 MG ORAL TABLET 1 tablet every 6 hrs prn ALPRAZOLAM 97168057581 No Longer Active Tu Landeros MD Active PREDNISONE 20 MG ORAL TABLET 2 tabs daily for 3 days, 1 tab daily for 3 days, 1/2 tab daily for 2 days PREDNISONE 85014120736 No Longer Active Tu Landeros MD Active TRIAMCINOLONE ACETONIDE 0.1 % EXTERNAL OINTMENT Apply to affected areas TID for up to 2 weeks TRIAMCINOLONE ACETONIDE 54845382342 No Longer Active Tu Landeros MD Active LORTAB 5-500 MG ORAL TABLET 1/2 to 1 tablet by mouth every 4 hours as needed for pain HYDROCODONE-ACETAMINOPHEN 97494481989 No Longer Active Tu Landeros MD Active MULTIVITAMINS TABS Take one by mouth daily MULTIPLE VITAMIN 70633923865 No Longer Active Tu Landeros MD Active MELATONIN 5 MG ORAL TABLET Take one by mouth daily MELATONIN 71560484731 No Longer Active Tu Landeros MD Active SOMA 350 MG ORAL TABLET 1 po q 6 hours prn spasm CARISOPRODOL 60471322499 No Longer Active Tu Landeros MD Active MECLIZINE HCL 25 MG ORAL TABLET CHEWABLE 1 four times a day as needed for dizziness MECLIZINE HCL 30906040080 No Longer Active Fab Morales DO Active ANGEL BREEZE 2 TEST IN VITRO DISK test tid prn GLUCOSE BLOOD 94217290287 No Longer Active Negra Scott MICHAEL Active REGLAN 10 MG ORAL TABLET 1 po TID PRN Nausea METOCLOPRAMIDE HCL 00560977894 No Longer Active Tu Landeros MD Active METFORMIN HCL 500 MG ORAL TABLET 1 PO BID METFORMIN HCL 37361306014 No Longer Active Tu Landeros MD Active AMBIEN 10 MG ORAL TABLET 1 tab by mouth at bedtime as needed for sleep 06/10 ZOLPIDEM TARTRATE 31781590227 No Longer Active Tu Landeros MD Active FLUOXETINE HCL 40 MG ORAL CAPSULE 1 po q day FLUOXETINE HCL 57318613642 No Longer Active Mayra Terry Active TRILIPIX 135 MG ORAL CAPSULE DELAYED RELEASE 1 po qd CHOLINE FENOFIBRATE 84426471460 No Longer Active Tu Landeros MD Active AMBIEN 10 MG ORAL TABLET 1 tab by mouth at bedtime as needed for sleep 06/10 AMBIEN 10 MG ORAL TABLET 403270 ZOLPIDEM TARTRATE Inactive METFORMIN HCL 500 MG ORAL TABLET 1 PO BID METFORMIN HCL 500 MG ORAL TABLET 071122 METFORMIN HCL Inactive REGLAN 10 MG ORAL TABLET 1 po TID PRN Nausea REGLAN 10 MG ORAL TABLET 231123 METOCLOPRAMIDE HCL Inactive MECLIZINE HCL 25 MG ORAL TABLET CHEWABLE 1 four times a day as needed for dizziness MECLIZINE HCL 25 MG ORAL TABLET CHEWABLE 590705 MECLIZINE HCL Inactive SOMA 350 MG ORAL TABLET 1 po q 6 hours prn spasm SOMA 350 MG ORAL TABLET 681328 CARISOPRODOL Inactive MELATONIN 5 MG ORAL TABLET Take one by mouth daily MELATONIN 5 MG ORAL TABLET 230754 MELATONIN Inactive MULTIVITAMINS TABS Take one by mouth daily MULTIVITAMINS TABS MULTIPLE VITAMIN Inactive LORTAB 5-500 MG ORAL TABLET 1/2 to 1 tablet by mouth every 4 hours as needed for pain LORTAB 5-500 MG ORAL TABLET HYDROCODONE- ACETAMINOPHEN Inactive XANAX 0.5 MG ORAL TABLET 1 tablet every 6 hrs prn XANAX 0.5 MG ORAL TABLET 795061 ALPRAZOLAM Inactive AUGMENTIN 875-125 MG ORAL TABLET 1 tab by mouth twice daily with food AUGMENTIN 875-125 MG ORAL TABLET 951863 AMOXICILLIN-POT CLAVULANATE Inactive ALPRAZOLAM 0.5 MG ORAL TABLET 1 tab every 6hrs as needed ALPRAZOLAM 0.5 MG ORAL TABLET 450856 ALPRAZOLAM Inactive SPIRONOLACTONE 25 MG ORAL TABLET 0.5 tablet by mouth daily 09/09 SPIRONOLACTONE 25 MG ORAL TABLET 087234 SPIRONOLACTONE Inactive ACCU-CHEK KEYONA PLUS w/Device KIT [...] times daily as needed ACCU-CHEK FASTCLIX LANCETS 10279983988 LANCETS Inactive TRAMADOL HCL 50 MG ORAL TABLET 1 tablets every 6 hours as needed for pain TRAMADOL HCL 50 MG ORAL TABLET 248486 TRAMADOL HCL Inactive VENLAFAXINE HCL 75 MG ORAL TABLET 1 po BID VENLAFAXINE HCL 75 MG ORAL TABLET 844084 VENLAFAXINE HCL Inactive HYDROCODONE-ACETAMINOPHEN 5-500 MG ORAL TABLET take one po Q 4-6 hours prn HYDROCODONE-ACETAMINOPHEN 5-500 MG ORAL TABLET HYDROCODONE-ACETAMINOPHEN Inactive LORTAB 5-500 MG ORAL TABLET 1/2 to 1 tablet by mouth every 4 hours as needed for pain LORTAB 5-500 MG ORAL TABLET HYDROCODONE- ACETAMINOPHEN Inactive LAMISIL 250 MG ORAL TABLET 1 po qd LAMISIL 250 MG ORAL TABLET 138953 TERBINAFINE HCL Inactive VENLAFAXINE HCL 37.5 MG ORAL TABLET 1 po BID VENLAFAXINE HCL 37.5 MG ORAL TABLET 871857 VENLAFAXINE HCL Inactive CIPRO 500 MG ORAL TABLET 1 tablet by mouth twice daily CIPRO 500 MG ORAL TABLET 346405 CIPROFLOXACIN HCL Inactive VENLAFAXINE HCL 75 MG ORAL TABLET 1 po BID VENLAFAXINE HCL 75 MG ORAL TABLET 850478 VENLAFAXINE HCL Inactive SIMVASTATIN 40 MG ORAL TABLET Take one by mouth daily SIMVASTATIN 40 MG ORAL TABLET 231169 SIMVASTATIN Inactive OMEPRAZOLE 20 MG ORAL TABLET DELAYED RELEASE 1 PO 30 MIN BEFORE 1ST MEAL 2010 OMEPRAZOLE 20 MG ORAL TABLET DELAYED RELEASE 698910 OMEPRAZOLE Inactive FENOFIBRATE 145 MG ORAL TABLET 1 po qd FENOFIBRATE 145 MG ORAL TABLET 322471 FENOFIBRATE Inactive BACTRIM DS 800-160 MG ORAL TABLET 1 bid x 14 day start 09-28-13 BACTRIM DS 800-160 MG ORAL TABLET 609613 SULFAMETHOXAZOLE- TRIMETHOPRIM Inactive B-12 100 MCG ORAL TABLET Take one by mouth daily B-12 100 MCG ORAL TABLET CYANOCOBALAMIN Inactive GABAPENTIN 100 MG ORAL CAPSULE 1 po bid GABAPENTIN 100 MG ORAL CAPSULE 351024 GABAPENTIN Inactive HYDROCODONE-ACETAMINOPHEN 5-325 MG ORAL TABLET 1 tab by mouth every 6 hours as needed for pain HYDROCODONE-ACETAMINOPHEN 5-325 MG ORAL TABLET 751533 HYDROCODONE-ACETAMINOPHEN Inactive CIPRO 500 MG ORAL TABLET 1 bid x 14 days start 09-28-13 CIPRO 500 MG ORAL TABLET 237273 CIPROFLOXACIN HCL Inactive ALIGN 4 MG ORAL [...] SODIUM 50 MG ORAL TABLET DELAYED RELEASE 602274 DICLOFENAC SODIUM Inactive PREDNISONE 20 MG ORAL TABLET 2 tablets once daily for 2 days, then 1 tablet once daily for 2 days PREDNISONE 20 MG ORAL TABLET 760703 PREDNISONE Inactive TRUEDRAW LANCING DEVICE Test twice a day dx 250.0 TRUEDRAW LANCING DEVICE LANCET DEVICES Inactive TRUERESULT BLOOD GLUCOSE w/Device KIT test blood sugar twice daily dx 250.00 TRUERESULT BLOOD GLUCOSE w/Device KIT BLOOD GLUCOSE MONITORING SUPPL Inactive FLONASE 50 MCG/ACT NASAL SUSPENSION 1 spray each nostril twice daily until bottle empty FLONASE 50 MCG/ACT NASAL SUSPENSION 7670709 FLUTICASONE PROPIONATE Inactive VENTOLIN HFA 108 (90 Base) MCG/ACT INHALATION AEROSOL SOLUTION 1-2 puffs every 4 hours if needed for cough/congestion VENTOLIN HFA 108 (90 Base) MCG/ACT INHALATION AEROSOL SOLUTION ALBUTEROL SULFATE Inactive REQUIP 2 MG ORAL TABLET Take one tablet at bedtime prn REQUIP 2 MG ORAL TABLET 657871 ROPINIROLE HCL Inactive SUPER B COMPLEX/VITAMIN C ORAL TABLET 1 qd SUPER B COMPLEX/VITAMIN C ORAL TABLET 93205753143 B COMPLEX-C Inactive TRUEDRAW LANCING DEVICE test blood sugar twice daily dx: 250.00 TRUEDRAW LANCING DEVICE LANCET DEVICES Inactive TRUETEST TEST IN VITRO STRIP test blood sugar twice daily. DX 250.0 TRUETEST TEST IN VITRO STRIP GLUCOSE BLOOD Inactive CYCLOBENZAPRINE HCL 10 MG ORAL TABLET 1 po TID PRN Muscle Spasm CYCLOBENZAPRINE HCL 10 MG ORAL TABLET 977103 CYCLOBENZAPRINE HCL Inactive DICLOFENAC SODIUM 50 MG ORAL TABLET DELAYED RELEASE 1 po BID PRN Pain DICLOFENAC SODIUM 50 MG ORAL TABLET DELAYED RELEASE 492405 DICLOFENAC SODIUM Inactive DICLOFENAC SODIUM 75 MG ORAL TABLET DELAYED RELEASE 1 po BID PRN Pain DICLOFENAC SODIUM 75 MG ORAL TABLET DELAYED RELEASE 614944 DICLOFENAC SODIUM Inactive NASONEX 50 MCG/ACT NASAL SUSPENSION 2 actuations in each nostril q day 07/15 NASONEX 50 MCG/ACT NASAL SUSPENSION 7075860 MOMETASONE FUROATE Inactive GUAIFENESIN ER 600 MG ORAL TABLET EXTENDED RELEASE 12 HOUR 1 twice a day as needed for congestion GUAIFENESIN ER 600 MG ORAL TABLET EXTENDED RELEASE 12 HOUR GUAIFENESIN Inactive AZITHROMYCIN 250 MG ORAL TABLET 2 po qd x 1, then 1 po qd x 4 AZITHROMYCIN 250 MG ORAL TABLET 776818 AZITHROMYCIN Inactive PROMETHAZINE-CODEINE 6.25-10 MG/5ML ORAL SYRUP 5ml po q6hr PRN Cough PROMETHAZINE-CODEINE 6.25-10 MG/5ML ORAL SYRUP 767121 PROMETHAZINE-CODEINE Inactive TRIAMCINOLONE ACETONIDE 0.1 % EXTERNAL OINTMENT Apply to affected areas TID for up to 2 weeks TRIAMCINOLONE ACETONIDE 0.1 % EXTERNAL OINTMENT 2492710 TRIAMCINOLONE ACETONIDE Inactive PREDNISONE 20 MG ORAL TABLET 2 tabs daily for 3 days, 1 tab daily for 3 days, 1/2 tab daily for 2 days PREDNISONE 20 MG ORAL TABLET 827547 PREDNISONE Inactive PREDNISONE 20 MG ORAL TABLET 2 tabs daily for 3 days, 1 tab daily for 3 days, 1/2 tab daily for 2 days PREDNISONE 20 MG ORAL TABLET 467220 PREDNISONE Inactive BACTRIM DS 800-160 MG ORAL TABLET 1 po BID x 7 days BACTRIM DS 800-160 MG ORAL TABLET 791307 SULFAMETHOXAZOLE-TRIMETHOPRIM Inactive ZITHROMAX 250 MG ORAL TABLET 2 po today, then 1 po q days 2-5 ZITHROMAX 250 MG ORAL TABLET 535584 AZITHROMYCIN Inactive PREDNISONE 20 MG ORAL TABLET 2 po qd x 5 days PREDNISONE 20 MG ORAL TABLET 969230 PREDNISONE Inactive Advance Directives Directive Description Start Date DISCUSSED WITH PATIENT -- NO DECISION MADE Immunizations Vaccine Administration Date Value Standard Description Seasonal influenza vaccine, injectable, containing preservative, for > 3 years old (Afluria, FluLaval, Fluzone, Fluvirin, Fluarix, Agriflu(>=18 yo)) Fluzone (>3 yrs.) [MZQ050] Influenza, seasonal, injectable influenza immunization (Flu Vax) has been administered 02/22/2012 influenza virus vaccine, unspecified formulation Seasonal influenza vaccine, injectable, containing preservative, for > 3 years old (Afluria, FluLaval, Fluzone, Fluvirin, Fluarix, Agriflu(>=18 yo)) Fluzone (>3 yrs.) [QPT718] Influenza, seasonal, injectable Vital Signs Date Name [...] ... - Chemistry sodium, serum 141 mmol/L 953-774 5354/01/16 carbon dioxide, venous blood 28.3 mmol/L 21.0-32.0 [...] 6.7 % 4.3-6.0 cholesterol, serum 106 mg/dL 281-973 7732/01/16 triglyceride, serum, fasting 173 mg/dL 30-200 HDL [...] 4.3-6.0 Encounters Code Encounter Date Provider Facility CPT-96441 Level 3 Est. Patient 10:28:05 CDT Tu Landeros MD [facility] CPT-16229 Level 3 Est. Patient 09:11:32 CDT Tu Landeros MD [facility] CPT-31708 Level 3 Est. Patient 10:13:19 DIRECTOR HR COMMUNICATIONS Lesli Kellogg APRN [facility] CPT-83294 Level 4 Est. Patient 13:42:02 DIRECTOR HR COMMUNICATIONS Tu Landeros MD [facility] CPT-07337 Level 3 Est. Patient 14:20:36 CDT Tu Landeros MD [facility] CPT-43101 Level 4 Est. Patient 14:28:34 CDT Tu Landeros MD [facility] CPT-18229 Level 3 Est. Patient 13:33:09 CDT Tu Landeros MD [facility] CPT-82068 Level 4 Est. Patient 14:29:21 CDT Tu Landeros MD [facility] CPT-81134 Level 4 Est. Patient 09:08:17 DIRECTOR HR COMMUNICATIONS Tu Landeros MD [facility] CPT-50213 Level 4 Est. Patient 14:40:19 CDT Tu Landeros MD [facility] CPT-00970 Level 4 Est. Patient 14:06:04 DIRECTOR HR COMMUNICATIONS Tu Landeros MD [facility] CPT-13036 Level 3 Est. Patient 14:05:18 DIRECTOR HR COMMUNICATIONS Tu Landeros MD [facility] CPT-28327 Level 3 Est. Patient 10:06:54 DIRECTOR HR COMMUNICATIONS Miranda Farah APRN [facility] CPT-99903 Level 4 Est. Patient 13:50:18 DIRECTOR HR COMMUNICATIONS Tu Landeros MD [facility] CPT-48142 Level 3 Est. Patient 10:30:04 CDT Tu Landeros MD [facility] CPT-71940 Level 4 Est. Patient 11:03:38 CDT Tu Landeros MD [facility] CPT-21947 Level 3 Est. Patient 10:20:44 CDT Fab Morales DO [facility] CPT-67499 Level 4 Est. Patient 14:38:57 CDT Tu Landeros MD [facility] CPT-32514 Level 4 Est. Patient 14:27:39 DIRECTOR HR COMMUNICATIONS Tu Landeros MD [facility] CPT-79135 Level 4 Est. Patient 09:45:25 CDT Tu Landeros MD [facility] CPT-09513 Level 4 Est. Patient 09:05:20 DIRECTOR HR COMMUNICATIONS Tu Landeros MD [facility] CPT-91650 Level 4 Est. Patient 14:09:06 CDT Tu Landeros MD [facility] CPT-56130 Level 3 Est. Patient 13:36:54 CDT Tu Landeros MD [facility] CPT-18104 Level 3 Est. Patient 08:59:14 CDT Tu Landeros MD [facility] CPT-71043 Level 3 Est. Patient 13:48:35 CDT Fab Morales DO [facility] CPT-52770 Level 4 Est. Patient 10:05:48 CDT Tu Landeros MD [facility] CPT-71266 Level 3 Est. Patient 13:38:42 CDT Marek BANKS [facility] CPT-84970 Level 5 Est. Patient 08:08:39 CDT Piyushrichajanelle Dawsontay FRANCIS [facility] CPT-40228 Level 4 Est. Patient 14:23:38 CDT Tu Landeros MD [facility] CPT-12059 Level 3 Est. Patient 11:44:04 CDT Tu Landeros MD [facility] CPT-91136 Level 3 Est. Patient 11:03:20 DIRECTOR HR COMMUNICATIONS Tu Landeros MD [facility] CPT-82898 Level 3 Est. Patient 11:03:14 DIRECTOR HR COMMUNICATIONS Tu Landeros MD [facility] CPT-17994 Level 3 Est. Patient 12:42:49 CDT Tu Landeros MD [facility] CPT-70026 Level 3 Est. Patient 11:52:06 CDT Tu Landeros MD [facility] CPT-46069 Level 3 Est. Patient 13:58:11 CDT Tu Landeros MD [facility] CPT-22459 Level 3 Est. Patient 17:50:07 CDT Fab Morales DO [facility] CPT-03810 Level 3 Est. Patient 12:06:29 CDT Elvira Cervantes MD PhD [facility] CPT-35996 Level 3 Est. Patient 15:50:32 CDT Tu Landeros MD [facility] CPT-92737 Level 4 Est. Patient 16:08:29 CDT Tu Landeros MD [facility] CPT-90708 Level 3 Est. Patient 16:04:19 CDT Tu Landeros MD [facility] CPT-42398 Level 3 Est. Patient 11:22:30 DIRECTOR HR COMMUNICATIONS Tu Landeros MD [facility] CPT-46268 Level 4 Est. Patient 16:24:02 DIRECTOR HR COMMUNICATIONS Tu Landeros MD [facility] CPT-40969 Level 3 Est. Patient 17:21:23 DIRECTOR HR COMMUNICATIONS Tu Landeros MD [facility] Procedures Code Procedure Name Date Entry Date Standard Description CPT-37332 Shoulder, right, comp min 2V - XRAY USE ONLY 13:50:22 CDT CPT-G0009 Administration of Pneumococcal Vaccine 15:08:26 CDT CPT-70373 Prevnar 13 Intramuscular Suspension 15:08:26 CDT 10/08 CPT-G0439 [facility] Annual Wellness Exam 14:29:22 CDT CPT-73289 Venipuncture Draw Fee 13:15:35 CDT CPT-48189 Magnesium - LAB USE ONLY 11:14:20 DIRECTOR HR COMMUNICATIONS CPT-47816 Lipid - LAB USE ONLY 11:14:20 DIRECTOR HR COMMUNICATIONS CPT-30776 HGBA1C - LAB USE ONLY 11:14:20 DIRECTOR HR COMMUNICATIONS CPT-75685 CMP - LAB USE ONLY 11:14:19 DIRECTOR HR COMMUNICATIONS CPT-06397 CBC - LAB USE ONLY 11:14:19 DIRECTOR HR COMMUNICATIONS CPT-67037 Venipuncture Draw Fee 11:14:18 DIRECTOR HR COMMUNICATIONS CPT-16124 First Vx - Ix admin for Medicare patients 16:46:52 CDT CPT-79982 Fluzone Preservative Free Intramuscular Suspension 16:46 :51 CDT CPT-67391 CBC - LAB USE ONLY 17:14:46 CDT CPT-29465 HGBA1C - LAB USE ONLY 17:14:46 CDT CPT-44685 Venipuncture Draw Fee 17:14:46 CDT CPT-G0438 Initial Annual Wellness Exam 14:13:04 CDT CPT-94672 Breathing Tx 10:06:54 DIRECTOR HR COMMUNICATIONS CPT-79623 Postop F/U Visit 10:02:45 CDT CPT-LR Lesion Removal 09:02:56 CDT CPT-JTINJ Asp/Joint Injection 15:51:27 DIRECTOR HR COMMUNICATIONS CPT-OV Office Visit 15:52:02 DIRECTOR HR COMMUNICATIONS CPT-OV Office Visit 15:45:11 CDT CPT-000 Give Zostavax 14:09:06 CDT CPT-39078 Administration single or combination vaccine inc oral 15 :19:04 CDT CPT-34380 Zoster Vaccine (Zostavax) 15:19:04 CDT CPT-29815 Administration single or combination vaccine inc oral 20 :51:03 CDT CPT-97948 Influenza split virus > age 3 20:51:03 CDT CPT-45283 No Charge Offi Visit 14:52:03 CDT CPT-OV Office Visit 14:57:43 CDT CPT-OV Office Visit 15:22:32 CDT CPT-54179 Administration single or combination vaccine inc oral 11 :33:15 CDT CPT-17276 Influenza split virus > age 3 11:33:15 CDT
--- OUTSIDE RECORDS SUMMARY | 2018-04-25 12:35 | XMS REPORT | Clinical Summary ---
Author Author Admin, SACHI Organization [employer] Address Unknown Phone Unavailable Allergies, Adverse Reactions, [...] acute ICD-719.46 Tessa Landeros MD Osteoarthritis ICD-715.90 Tesas Landeros MD Ear pain, bilateral ICD-388.70 Tessa [...] CAPSULE 1 po TID PRN Pain INDOMETHACIN 46687432312 Active Tu Landeros MD Active PROMETHAZINE-CODEINE 6.25-10 MG/5ML ORAL SYRUP 5ml po q6hr PRN Cough PROMETHAZINE-CODEINE 16134407991 No Longer Active Tu Landeros MD Active AZITHROMYCIN 250 MG ORAL TABLET 2 po qd x 1, then 1 po qd x 4 AZITHROMYCIN 64205745678 No Longer Active Tu Landeros MD Active GUAIFENESIN ER 600 MG ORAL TABLET EXTENDED RELEASE 12 HOUR 1 twice a day as needed for congestion GUAIFENESIN 38853359401 No Longer Active Tu Landeros MD Active PREDNISONE 20 MG ORAL TABLET 2 po qd x 5 days PREDNISONE 15964042695 No Longer Active Tu Landeros MD Active FLUTICASONE PROPIONATE 50 MCG/ACT NASAL SUSPENSION 2 sprays/nostril qd PRN Congestion/Allergies FLUTICASONE PROPIONATE 71542749644 Active Tu Landeros MD Active NASONEX 50 MCG/ACT NASAL SUSPENSION 2 actuations in each nostril q day 07/15 MOMETASONE FUROATE 04559926296 No Longer Active Tu Landeros MD Active MAGNESIUM OXIDE 400 MG ORAL TABLET 1 po BID MAGNESIUM OXIDE 85640689446 Active Tu Landeros MD Active SIMVASTATIN 20 MG ORAL TABLET 0.5 po qHS SIMVASTATIN 06755709714 Active Tu Landeros MD Active DICLOFENAC SODIUM 75 MG ORAL TABLET DELAYED RELEASE 1 po BID PRN Pain DICLOFENAC SODIUM 26156230665 No Longer Active Tu Landeros MD Active GABAPENTIN 100 MG ORAL CAPSULE 1 po TID GABAPENTIN 51472889034 Active Tu Landeros MD Active DICLOFENAC SODIUM 50 MG ORAL TABLET DELAYED RELEASE 1 po BID PRN Pain DICLOFENAC SODIUM 12179255006 No Longer Active Tu Landeros MD Active CYCLOBENZAPRINE HCL 10 MG ORAL TABLET 1 po TID PRN Muscle Spasm CYCLOBENZAPRINE HCL 47639873005 No Longer Active Tu Landeros MD Active INVOKANA 100 MG ORAL TABLET 1 po qd CANAGLIFLOZIN 97377805719 Active José Luis Becerra MD Active GLIPIZIDE 5 MG ORAL TABLET 1 po qd GLIPIZIDE 65191038971 No Longer Active Tu Landeros MD Active VENLAFAXINE HCL 75 MG ORAL TABLET 1 po BID VENLAFAXINE HCL 33437846253 Active Tu Landeros MD Active GLIMEPIRIDE 1 MG ORAL TABLET 1 po qd GLIMEPIRIDE 61045837582 No Longer Active Tu Landeros MD Active TRUE METRIX BLOOD GLUCOSE TEST IN VITRO STRIP Test blood sugar BID Dx: E11.9 GLUCOSE BLOOD 89228334959 Active Tu Landeros MD Active TRUE METRIX AIR GLUCOSE METER w/Device KIT Test blood glucose BID Dx: E11.9 BLOOD GLUCOSE MONITORING SUPPL 74239109540 Active Tu Landeros MD Active TRUETEST TEST IN VITRO STRIP test blood sugar twice daily. DX 250.0 GLUCOSE BLOOD 71606286662 No Longer Active Mirna Stanley LPN Active TRUEDRAW LANCING DEVICE test blood sugar twice daily dx: 250.00 LANCET DEVICES 84107074599 No Longer Active Mirna Stanley LPN Active ENALAPRIL MALEATE 20 MG ORAL TABLET 2 po qd ENALAPRIL MALEATE 04833248477 Active Tu Landeros MD Active SUPER B COMPLEX/VITAMIN C ORAL TABLET 1 qd B COMPLEX- C 50041751378 No Longer Active Tu Landeros MD Active ASPIRIN EC 81 MG ORAL TABLET DELAYED RELEASE 1 po qd ASPIRIN 31507983783 Active Tu Landeros MD Active GLUCOSAMINE 500 MG TABS 2 po qd GLUCOSAMINE Active Tu Landeros MD Active FISH OIL 1000 MG ORAL CAPSULE 1 po qd OMEGA-3 FATTY ACIDS 17759494481 Active Tu Landeros MD Active METFORMIN HCL 1000 MG ORAL TABLET 1 po BID METFORMIN HCL 87275965732 Active Tu Landeros MD Active KLOR-CON 10 10 MEQ ORAL TABLET EXTENDED RELEASE 2 po qd POTASSIUM CHLORIDE 69175584627 Active Tu Landeros MD Active FUROSEMIDE 40 MG ORAL TABLET 1 po qd FUROSEMIDE 01533440518 Active Tu Landeros MD Active REQUIP 2 MG ORAL TABLET 1 po qHS PRN Restless legs ROPINIROLE HCL 99191116418 Active Tu Landeros MD Active REQUIP 2 MG ORAL TABLET Take one tablet at bedtime prn ROPINIROLE HCL 22557267698 No Longer Active Tu Landeros MD Active VENTOLIN HFA 108 (90 Base) MCG/ACT INHALATION AEROSOL SOLUTION 1-2 puffs every 4 hours if needed for cough/congestion ALBUTEROL SULFATE 46233878110 No Longer Active Ambika Aden APRN Active ZITHROMAX 250 MG ORAL TABLET 2 po today, then 1 po q days 2-5 AZITHROMYCIN 73682820209 No Longer Active Miranda Farah APRN Active FLONASE 50 MCG/ACT NASAL SUSPENSION 1 spray each nostril twice daily until bottle empty FLUTICASONE PROPIONATE 98088325659 No Longer Active Tu Landeros MD Active COLACE 100 MG ORAL CAPSULE 1 po BID PRN Constipation DOCUSATE SODIUM 51947688339 Active Tu Landeros MD Active TRUERESULT BLOOD GLUCOSE w/Device KIT test blood sugar twice daily dx 250.00 BLOOD GLUCOSE MONITORING SUPPL 69345307524 No Longer Active Tu Landeros MD Active TRUEDRAW LANCING DEVICE Test twice a day dx 250.0 LANCET DEVICES 13454601108 No Longer Active Tu Landeros MD Active PREDNISONE 20 MG ORAL TABLET 2 tablets once daily for 2 days, then 1 tablet once daily for 2 days PREDNISONE 65556096457 No Longer Active Tu Landeros MD Active DICLOFENAC SODIUM 50 MG ORAL TABLET DELAYED RELEASE 1 tablet by mouth three times a day as needed DICLOFENAC SODIUM 86261103934 No Longer Active Fab Morales DO Active EMBRACE BLOOD GLUCOSE TEST IN VITRO STRIP test blood sugar twice daily DX 250.0 GLUCOSE BLOOD 21376126665 No Longer Active Tu Landeros MD Active TRUETEST TEST IN VITRO STRIP test blood sugar three times daily dx: 250.00 GLUCOSE BLOOD 29404451146 No Longer Active Suzebianca VOGEL Active TRUERESULT BLOOD GLUCOSE w/Device KIT use to test blood sugar tid dx: 250.00 BLOOD GLUCOSE MONITORING SUPPL 33196680238 No Longer Active Suze Corey NURYSA Active ALIGN 4 MG ORAL CAPSULE 1 tid PROBIOTIC PRODUCT 44146991418 No Longer Active Shaun Sy MD Active CIPRO 500 MG ORAL TABLET 1 bid x 14 days start 09-28-13 CIPROFLOXACIN HCL 06033355223 No Longer Active Shaun Sy MD Active TRAMADOL HCL 50 MG ORAL TABLET 1-2 tablets every 6 hours as needed for pain TRAMADOL HCL 04008887568 Active Tu Landeros MD Active HYDROCODONE-ACETAMINOPHEN 5-325 MG ORAL TABLET 1 tab by mouth every 6 hours as needed for pain HYDROCODONE-ACETAMINOPHEN 85912741783 No Longer Active Tu Landeros MD Active OMEPRAZOLE 20 MG ORAL CAPSULE DELAYED RELEASE 1 po q a.m. OMEPRAZOLE 21544999020 Active Tu Landeros MD Active GABAPENTIN 100 MG ORAL CAPSULE 1 po bid GABAPENTIN 64249814804 No Longer Active Tu Landeros MD Active B-12 100 MCG ORAL TABLET Take one by mouth daily CYANOCOBALAMIN 03525080806 No Longer Active Tu Landeros MD Active BACTRIM DS 800-160 MG ORAL TABLET 1 bid x 14 day start 09-28-13 SULFAMETHOXAZOLE-TRIMETHOPRIM 42222828914 No Longer Active Tu Landeros MD Active CARVEDILOL 12.5 MG ORAL TABLET 1 po BID CARVEDILOL 10101544730 Active Tu Landeros MD Active TRILIPIX 135 MG ORAL CAPSULE DELAYED RELEASE 1 q hs CHOLINE FENOFIBRATE 04831931924 Active Tu Landeros MD Active FENOFIBRATE 145 MG ORAL TABLET 1 po qd FENOFIBRATE 88314988502 No Longer Active JASPREET Perez Active OMEPRAZOLE 20 MG ORAL TABLET DELAYED RELEASE 1 PO 30 MIN BEFORE 1ST MEAL 2010 OMEPRAZOLE 24537726460 No Longer Active JASPREET Perez Active SIMVASTATIN 40 MG ORAL TABLET Take one by mouth daily SIMVASTATIN 79114176002 No Longer Active JASPREET Perez Active VENLAFAXINE HCL 75 MG ORAL TABLET 1 po BID VENLAFAXINE HCL 61010427845 No Longer Active JASPREET Perez Active CIPRO 500 MG ORAL TABLET 1 tablet by mouth twice daily CIPROFLOXACIN HCL 38524225637 No Longer Active Tu Landeros MD Active VENLAFAXINE HCL 37.5 MG ORAL TABLET 1 po BID VENLAFAXINE HCL 17065262646 No Longer Active Suze Nicole A Active LAMISIL 250 MG ORAL TABLET 1 po qd TERBINAFINE HCL 49628734283 No Longer Active Tu Landeros MD Active LORTAB 5-500 MG ORAL TABLET 1/2 to 1 tablet by mouth every 4 hours as needed for pain HYDROCODONE-ACETAMINOPHEN 67330073065 No Longer Active Tu Landeros MD Active HYDROCODONE-ACETAMINOPHEN 5-500 MG ORAL TABLET take one po Q 4-6 hours prn HYDROCODONE-ACETAMINOPHEN 79675801018 No Longer Active Tu Landeros MD Active BACTRIM DS 800-160 MG ORAL TABLET 1 po BID x 7 days SULFAMETHOXAZOLE-TRIMETHOPRIM 19478111579 No Longer Active Tu Landeros MD Active VENLAFAXINE HCL 75 MG ORAL TABLET 1 po BID VENLAFAXINE HCL 12153805852 No Longer Active Elvira Cervantes MD PhD Active TRAMADOL HCL 50 MG ORAL TABLET 1 tablets every 6 hours as needed for pain TRAMADOL HCL 87900010911 No Longer Active Tu Landeros MD Active ACCU-CHEK FASTCLIX LANCETS Use to check bloodsugar three times daily as needed LANCETS 23581449805 No Longer Active Tu Landeros MD Active ACCU-CHEK KEYONA PLUS IN VITRO STRIP Use for testing bloodsugars three times daily as needed GLUCOSE BLOOD 85121858745 No Longer Active Tu Landeros MD Active ACCU-CHEK KEYONA PLUS w/Device KIT Use for testing bloodsugars three times daily as needed BLOOD GLUCOSE MONITORING SUPPL 41864709973 No Longer Active Tu Landeros MD Active SPIRONOLACTONE 25 MG ORAL TABLET 0.5 tablet by mouth daily 09/09 SPIRONOLACTONE 88516515331 No Longer Active Tu Landeros MD Active ALPRAZOLAM 0.5 MG ORAL TABLET 1 tab every 6hrs as needed ALPRAZOLAM 01124067440 No Longer Active Tu Landeros MD Active AUGMENTIN 875-125 MG ORAL TABLET 1 tab by mouth twice daily with food AMOXICILLIN-POT CLAVULANATE 29712666321 No Longer Active Tu Landeros MD Active PREDNISONE 20 MG ORAL TABLET 2 tabs daily for 3 days, 1 tab daily for 3 days, 1/2 tab daily for 2 days PREDNISONE 59463896285 No Longer Active Tu Landeros MD Active XANAX 0.5 MG ORAL TABLET 1 tablet every 6 hrs prn ALPRAZOLAM 66984986854 No Longer Active Tu Landeros MD Active PREDNISONE 20 MG ORAL TABLET 2 tabs daily for 3 days, 1 tab daily for 3 days, 1/2 tab daily for 2 days PREDNISONE 08108470856 No Longer Active Tu Landeros MD Active TRIAMCINOLONE ACETONIDE 0.1 % EXTERNAL OINTMENT Apply to affected areas TID for up to 2 weeks TRIAMCINOLONE ACETONIDE 34502110497 No Longer Active Tu Landeros MD Active LORTAB 5-500 MG ORAL TABLET 1/2 to 1 tablet by mouth every 4 hours as needed for pain HYDROCODONE-ACETAMINOPHEN 49415085977 No Longer Active Tu Landeros MD Active MULTIVITAMINS TABS Take one by mouth daily MULTIPLE VITAMIN 43116474637 No Longer Active Tu Landeros MD Active MELATONIN 5 MG ORAL TABLET Take one by mouth daily MELATONIN 17390932860 No Longer Active Tu Landeros MD Active SOMA 350 MG ORAL TABLET 1 po q 6 hours prn spasm CARISOPRODOL 68117189945 No Longer Active Tu Landeros MD Active MECLIZINE HCL 25 MG ORAL TABLET CHEWABLE 1 four times a day as needed for dizziness MECLIZINE HCL 52483560811 No Longer Active Fab Morales DO Active ANGEL BREEZE 2 TEST IN VITRO DISK test tid prn GLUCOSE BLOOD 35057858030 No Longer Active Negra Scott MICHAEL Active REGLAN 10 MG ORAL TABLET 1 po TID PRN Nausea METOCLOPRAMIDE HCL 08493135619 No Longer Active Tu Landeros MD Active METFORMIN HCL 500 MG ORAL TABLET 1 PO BID METFORMIN HCL 65415629743 No Longer Active Tu Landeros MD Active AMBIEN 10 MG ORAL TABLET 1 tab by mouth at bedtime as needed for sleep 06/10 ZOLPIDEM TARTRATE 07668186375 No Longer Active Tu Landeros MD Active FLUOXETINE HCL 40 MG ORAL CAPSULE 1 po q day FLUOXETINE HCL 77549833468 No Longer Active Mayra Terry Active TRILIPIX 135 MG ORAL CAPSULE DELAYED RELEASE 1 po qd CHOLINE FENOFIBRATE 88413978951 No Longer Active Tu Landeros MD Active AMBIEN 10 MG ORAL TABLET 1 tab by mouth at bedtime as needed for sleep 06/10 AMBIEN 10 MG ORAL TABLET 990882 ZOLPIDEM TARTRATE Inactive METFORMIN HCL 500 MG ORAL TABLET 1 PO BID METFORMIN HCL 500 MG ORAL TABLET 422955 METFORMIN HCL Inactive REGLAN 10 MG ORAL TABLET 1 po TID PRN Nausea REGLAN 10 MG ORAL TABLET 804050 METOCLOPRAMIDE HCL Inactive MECLIZINE HCL 25 MG ORAL TABLET CHEWABLE 1 four times a day as needed for dizziness MECLIZINE HCL 25 MG ORAL TABLET CHEWABLE 872562 MECLIZINE HCL Inactive SOMA 350 MG ORAL TABLET 1 po q 6 hours prn spasm SOMA 350 MG ORAL TABLET 508204 CARISOPRODOL Inactive MELATONIN 5 MG ORAL TABLET Take one by mouth daily MELATONIN 5 MG ORAL TABLET 122443 MELATONIN Inactive MULTIVITAMINS TABS Take one by mouth daily MULTIVITAMINS TABS MULTIPLE VITAMIN Inactive LORTAB 5-500 MG ORAL TABLET 1/2 to 1 tablet by mouth every 4 hours as needed for pain LORTAB 5-500 MG ORAL TABLET HYDROCODONE- ACETAMINOPHEN Inactive XANAX 0.5 MG ORAL TABLET 1 tablet every 6 hrs prn XANAX 0.5 MG ORAL TABLET 470200 ALPRAZOLAM Inactive AUGMENTIN 875-125 MG ORAL TABLET 1 tab by mouth twice daily with food AUGMENTIN 875-125 MG ORAL TABLET 497543 AMOXICILLIN-POT CLAVULANATE Inactive ALPRAZOLAM 0.5 MG ORAL TABLET 1 tab every 6hrs as needed ALPRAZOLAM 0.5 MG ORAL TABLET 709535 ALPRAZOLAM Inactive SPIRONOLACTONE 25 MG ORAL TABLET 0.5 tablet by mouth daily 09/09 SPIRONOLACTONE 25 MG ORAL TABLET 400719 SPIRONOLACTONE Inactive ACCU-CHEK KEYONA PLUS w/Device KIT [...] times daily as needed ACCU-CHEK FASTCLIX LANCETS 33455499628 LANCETS Inactive TRAMADOL HCL 50 MG ORAL TABLET 1 tablets every 6 hours as needed for pain TRAMADOL HCL 50 MG ORAL TABLET 579466 TRAMADOL HCL Inactive VENLAFAXINE HCL 75 MG ORAL TABLET 1 po BID VENLAFAXINE HCL 75 MG ORAL TABLET 924038 VENLAFAXINE HCL Inactive HYDROCODONE-ACETAMINOPHEN 5-500 MG ORAL TABLET take one po Q 4-6 hours prn HYDROCODONE-ACETAMINOPHEN 5-500 MG ORAL TABLET HYDROCODONE-ACETAMINOPHEN Inactive LORTAB 5-500 MG ORAL TABLET 1/2 to 1 tablet by mouth every 4 hours as needed for pain LORTAB 5-500 MG ORAL TABLET HYDROCODONE- ACETAMINOPHEN Inactive LAMISIL 250 MG ORAL TABLET 1 po qd LAMISIL 250 MG ORAL TABLET 107368 TERBINAFINE HCL Inactive VENLAFAXINE HCL 37.5 MG ORAL TABLET 1 po BID VENLAFAXINE HCL 37.5 MG ORAL TABLET 553800 VENLAFAXINE HCL Inactive CIPRO 500 MG ORAL TABLET 1 tablet by mouth twice daily CIPRO 500 MG ORAL TABLET 038777 CIPROFLOXACIN HCL Inactive VENLAFAXINE HCL 75 MG ORAL TABLET 1 po BID VENLAFAXINE HCL 75 MG ORAL TABLET 273267 VENLAFAXINE HCL Inactive SIMVASTATIN 40 MG ORAL TABLET Take one by mouth daily SIMVASTATIN 40 MG ORAL TABLET 935754 SIMVASTATIN Inactive OMEPRAZOLE 20 MG ORAL TABLET DELAYED RELEASE 1 PO 30 MIN BEFORE 1ST MEAL 2010 OMEPRAZOLE 20 MG ORAL TABLET DELAYED RELEASE 961189 OMEPRAZOLE Inactive FENOFIBRATE 145 MG ORAL TABLET 1 po qd FENOFIBRATE 145 MG ORAL TABLET 879463 FENOFIBRATE Inactive BACTRIM DS 800-160 MG ORAL TABLET 1 bid x 14 day start 09-28-13 BACTRIM DS 800-160 MG ORAL TABLET 960511 SULFAMETHOXAZOLE- TRIMETHOPRIM Inactive B-12 100 MCG ORAL TABLET Take one by mouth daily B-12 100 MCG ORAL TABLET CYANOCOBALAMIN Inactive GABAPENTIN 100 MG ORAL CAPSULE 1 po bid GABAPENTIN 100 MG ORAL CAPSULE 281269 GABAPENTIN Inactive HYDROCODONE-ACETAMINOPHEN 5-325 MG ORAL TABLET 1 tab by mouth every 6 hours as needed for pain HYDROCODONE-ACETAMINOPHEN 5-325 MG ORAL TABLET 198174 HYDROCODONE-ACETAMINOPHEN Inactive CIPRO 500 MG ORAL TABLET 1 bid x 14 days start 09-28-13 CIPRO 500 MG ORAL TABLET 831846 CIPROFLOXACIN HCL Inactive ALIGN 4 MG ORAL [...] SODIUM 50 MG ORAL TABLET DELAYED RELEASE 725218 DICLOFENAC SODIUM Inactive PREDNISONE 20 MG ORAL TABLET 2 tablets once daily for 2 days, then 1 tablet once daily for 2 days PREDNISONE 20 MG ORAL TABLET 239225 PREDNISONE Inactive TRUEDRAW LANCING DEVICE Test twice a day dx 250.0 TRUEDRAW LANCING DEVICE LANCET DEVICES Inactive TRUERESULT BLOOD GLUCOSE w/Device KIT test blood sugar twice daily dx 250.00 TRUERESULT BLOOD GLUCOSE w/Device KIT BLOOD GLUCOSE MONITORING SUPPL Inactive FLONASE 50 MCG/ACT NASAL SUSPENSION 1 spray each nostril twice daily until bottle empty FLONASE 50 MCG/ACT NASAL SUSPENSION 1649050 FLUTICASONE PROPIONATE Inactive VENTOLIN HFA 108 (90 Base) MCG/ACT INHALATION AEROSOL SOLUTION 1-2 puffs every 4 hours if needed for cough/congestion VENTOLIN HFA 108 (90 Base) MCG/ACT INHALATION AEROSOL SOLUTION ALBUTEROL SULFATE Inactive REQUIP 2 MG ORAL TABLET Take one tablet at bedtime prn REQUIP 2 MG ORAL TABLET 726020 ROPINIROLE HCL Inactive SUPER B COMPLEX/VITAMIN C ORAL TABLET 1 qd SUPER B COMPLEX/VITAMIN C ORAL TABLET 81563465199 B COMPLEX-C Inactive TRUEDRAW LANCING DEVICE test blood sugar twice daily dx: 250.00 TRUEDRAW LANCING DEVICE LANCET DEVICES Inactive TRUETEST TEST IN VITRO STRIP test blood sugar twice daily. DX 250.0 TRUETEST TEST IN VITRO STRIP GLUCOSE BLOOD Inactive CYCLOBENZAPRINE HCL 10 MG ORAL TABLET 1 po TID PRN Muscle Spasm CYCLOBENZAPRINE HCL 10 MG ORAL TABLET 580312 CYCLOBENZAPRINE HCL Inactive DICLOFENAC SODIUM 50 MG ORAL TABLET DELAYED RELEASE 1 po BID PRN Pain DICLOFENAC SODIUM 50 MG ORAL TABLET DELAYED RELEASE 451444 DICLOFENAC SODIUM Inactive DICLOFENAC SODIUM 75 MG ORAL TABLET DELAYED RELEASE 1 po BID PRN Pain DICLOFENAC SODIUM 75 MG ORAL TABLET DELAYED RELEASE 853818 DICLOFENAC SODIUM Inactive NASONEX 50 MCG/ACT NASAL SUSPENSION 2 actuations in each nostril q day 07/15 NASONEX 50 MCG/ACT NASAL SUSPENSION 6751326 MOMETASONE FUROATE Inactive GUAIFENESIN ER 600 MG ORAL TABLET EXTENDED RELEASE 12 HOUR 1 twice a day as needed for congestion GUAIFENESIN ER 600 MG ORAL TABLET EXTENDED RELEASE 12 HOUR GUAIFENESIN Inactive AZITHROMYCIN 250 MG ORAL TABLET 2 po qd x 1, then 1 po qd x 4 AZITHROMYCIN 250 MG ORAL TABLET 066137 AZITHROMYCIN Inactive PROMETHAZINE-CODEINE 6.25-10 MG/5ML ORAL SYRUP 5ml po q6hr PRN Cough PROMETHAZINE-CODEINE 6.25-10 MG/5ML ORAL SYRUP 101695 PROMETHAZINE-CODEINE Inactive TRIAMCINOLONE ACETONIDE 0.1 % EXTERNAL OINTMENT Apply to affected areas TID for up to 2 weeks TRIAMCINOLONE ACETONIDE 0.1 % EXTERNAL OINTMENT 1702890 TRIAMCINOLONE ACETONIDE Inactive PREDNISONE 20 MG ORAL TABLET 2 tabs daily for 3 days, 1 tab daily for 3 days, 1/2 tab daily for 2 days PREDNISONE 20 MG ORAL TABLET 000257 PREDNISONE Inactive PREDNISONE 20 MG ORAL TABLET 2 tabs daily for 3 days, 1 tab daily for 3 days, 1/2 tab daily for 2 days PREDNISONE 20 MG ORAL TABLET 588221 PREDNISONE Inactive BACTRIM DS 800-160 MG ORAL TABLET 1 po BID x 7 days BACTRIM DS 800-160 MG ORAL TABLET 892852 SULFAMETHOXAZOLE-TRIMETHOPRIM Inactive ZITHROMAX 250 MG ORAL TABLET 2 po today, then 1 po q days 2-5 ZITHROMAX 250 MG ORAL TABLET 090164 AZITHROMYCIN Inactive PREDNISONE 20 MG ORAL TABLET 2 po qd x 5 days PREDNISONE 20 MG ORAL TABLET 087034 PREDNISONE Inactive Advance Directives Directive Description Start Date DISCUSSED WITH PATIENT -- NO DECISION MADE Immunizations Vaccine Administration Date Value Standard Description Seasonal influenza vaccine, injectable, containing preservative, for > 3 years old (Afluria, FluLaval, Fluzone, Fluvirin, Fluarix, Agriflu(>=18 yo)) Fluzone (>3 yrs.) [[id number]] Influenza, seasonal, injectable influenza immunization (Flu Vax) has been administered 02/22/2012 influenza virus vaccine, unspecified formulation Seasonal influenza vaccine, injectable, containing preservative, for > 3 years old (Afluria, FluLaval, Fluzone, Fluvirin, Fluarix, Agriflu(>=18 yo)) Fluzone (>3 yrs.) [[id number]] Influenza, seasonal, injectable Vital Signs Date Name [...] ... - Chemistry sodium, serum 141 mmol/L 673-508 8218/01/16 carbon dioxide, venous blood 28.3 mmol/L 21.0-32.0 [...] 6.7 % 4.3-6.0 cholesterol, serum 106 mg/dL 857-210 2309/01/16 triglyceride, serum, fasting 173 mg/dL 30-200 HDL [...] volume, RBC 90 fL 80-97 mean corpuscular hemoglobin concentration, RBC 31.5 G/DL [...] 4.3-6.0 Encounters Code Encounter Date Provider Facility CPT-76911 Level 3 Est. Patient 10:28:05 CDT Tu Landeros MD [facility] CPT-77860 Level 3 Est. Patient 09:11:32 CDT Tu Landeros MD [facility] CPT-23572 Level 3 Est. Patient 10:13:19 PSYCHOTHERAPIST COUNSELOR Lesli Kellogg APRN [facility] CPT-85292 Level 4 Est. Patient 13:42:02 PSYCHOTHERAPIST COUNSELOR Tu Landeros MD [facility] CPT-86975 Level 3 Est. Patient 14:20:36 CDT Tu Landeros MD [facility] CPT-62488 Level 4 Est. Patient 14:28:34 CDT Tu Landeros MD [facility] CPT-51255 Level 3 Est. Patient 13:33:09 CDT Tu Landeros MD [facility] CPT-97960 Level 4 Est. Patient 14:29:21 CDT Tu Landeros MD [facility] CPT-23684 Level 4 Est. Patient 09:08:17 PSYCHOTHERAPIST COUNSELOR Tu Landeros MD [facility] CPT-57402 Level 4 Est. Patient 14:40:19 CDT Tu Landeros MD [facility] CPT-12288 Level 4 Est. Patient 14:06:04 PSYCHOTHERAPIST COUNSELOR Tu Landeros MD [facility] CPT-65843 Level 3 Est. Patient 14:05:18 PSYCHOTHERAPIST COUNSELOR Tu Landeros MD [facility] CPT-58007 Level 3 Est. Patient 10:06:54 PSYCHOTHERAPIST COUNSELOR Miranda Farah APRN [facility] CPT-96963 Level 4 Est. Patient 13:50:18 PSYCHOTHERAPIST COUNSELOR Tu Landeros MD [facility] CPT-75142 Level 3 Est. Patient 10:30:04 CDT Tu Landeros MD [facility] CPT-05798 Level 4 Est. Patient 11:03:38 CDT Tu Landeros MD [facility] CPT-85195 Level 3 Est. Patient 10:20:44 CDT Fab Morales DO [facility] CPT-33689 Level 4 Est. Patient 14:38:57 CDT Tu Landeros MD [facility] CPT-46666 Level 4 Est. Patient 14:27:39 PSYCHOTHERAPIST COUNSELOR Tu Landeros MD [facility] CPT-36394 Level 4 Est. Patient 09:45:25 CDT Tu Landeros MD [facility] CPT-73247 Level 4 Est. Patient 09:05:20 PSYCHOTHERAPIST COUNSELOR Tu Landeros MD [facility] CPT-64233 Level 4 Est. Patient 14:09:06 CDT Tu Landeros MD [facility] CPT-81050 Level 3 Est. Patient 13:36:54 CDT Tu Landeros MD [facility] CPT-83001 Level 3 Est. Patient 08:59:14 CDT Tu Landeros MD [facility] CPT-96260 Level 3 Est. Patient 13:48:35 CDT Fab Morales DO [facility] CPT-35134 Level 4 Est. Patient 10:05:48 CDT Tu Landeros MD [facility] CPT-22292 Level 3 Est. Patient 13:38:[address] [facility] CPT-34704 Level 5 Est. Patient 08:08:39 CDT Piyushrichajanelle Dawsontay FRANCIS [facility] CPT-94691 Level 4 Est. Patient 14:23:38 CDT Tu Landeros MD [facility] CPT-24998 Level 3 Est. Patient 11:44:04 CDT Tu Landeros MD [facility] CPT-25959 Level 3 Est. Patient 11:03:20 PSYCHOTHERAPIST COUNSELOR Tu Landeros MD [facility] CPT-43143 Level 3 Est. Patient 11:03:14 PSYCHOTHERAPIST COUNSELOR Tu Landeros MD [facility] CPT-28005 Level 3 Est. Patient 12:42:49 CDT Tu Landeros MD [facility] CPT-47106 Level 3 Est. Patient 11:52:06 CDT Tu Landeros MD [facility] CPT-38926 Level 3 Est. Patient 13:58:11 CDT Tu Landeros MD [facility] CPT-60927 Level 3 Est. Patient 17:50:07 CDT Fab Morales DO [facility] CPT-21318 Level 3 Est. Patient 12:06:29 CDT Elvira Cervantes MD PhD [facility] CPT-21905 Level 3 Est. Patient 15:50:32 CDT Tu Landeros MD [facility] CPT-05487 Level 4 Est. Patient 16:08:29 CDT Tu Landeros MD [facility] CPT-50292 Level 3 Est. Patient 16:04:19 CDT Tu Landeros MD [facility] CPT-87562 Level 3 Est. Patient 11:22:30 PSYCHOTHERAPIST COUNSELOR Tu Landeros MD [facility] CPT-34030 Level 4 Est. Patient 16:24:02 PSYCHOTHERAPIST COUNSELOR Tu Landeros MD [facility] CPT-99762 Level 3 Est. Patient 17:21:23 PSYCHOTHERAPIST COUNSELOR Tu Landeros MD [facility] Procedures Code Procedure Name Date Entry Date Standard Description CPT-91440 Shoulder, right, comp min 2V - XRAY USE ONLY 13:50:22 CDT CPT-G0009 Administration of Pneumococcal Vaccine 15:08:26 CDT CPT-30320 Prevnar 13 Intramuscular Suspension 15:08:26 CDT 10/08 CPT-G0439 [facility] Annual Wellness Exam 14:29:22 CDT CPT-08453 Venipuncture Draw Fee 13:15:35 CDT CPT-86184 Magnesium - LAB USE ONLY 11:14:20 PSYCHOTHERAPIST COUNSELOR CPT-61402 Lipid - LAB USE ONLY 11:14:20 PSYCHOTHERAPIST COUNSELOR CPT-16532 HGBA1C - LAB USE ONLY 11:14:20 PSYCHOTHERAPIST COUNSELOR CPT-53883 CMP - LAB USE ONLY 11:14:19 PSYCHOTHERAPIST COUNSELOR CPT-89299 CBC - LAB USE ONLY 11:14:19 PSYCHOTHERAPIST COUNSELOR CPT-61513 Venipuncture Draw Fee 11:14:18 PSYCHOTHERAPIST COUNSELOR CPT-65306 First Vx - Ix admin for Medicare patients 16:46:52 CDT CPT-12301 Fluzone Preservative Free Intramuscular Suspension 16:46 :51 CDT CPT-72653 CBC - LAB USE ONLY 17:14:46 CDT CPT-19071 HGBA1C - LAB USE ONLY 17:14:46 CDT CPT-95784 Venipuncture Draw Fee 17:14:46 CDT CPT-G0438 Initial Annual Wellness Exam 14:13:04 CDT CPT-62757 Breathing Tx 10:06:54 PSYCHOTHERAPIST COUNSELOR CPT-42027 Postop F/U Visit 10:02:45 CDT CPT-LR Lesion Removal 09:02:56 CDT CPT-JTINJ Asp/Joint Injection 15:51:27 PSYCHOTHERAPIST COUNSELOR CPT-OV Office Visit 15:52:02 PSYCHOTHERAPIST COUNSELOR CPT-OV Office Visit 15:45:11 CDT CPT-000 Give Zostavax 14:09:06 CDT CPT-50289 Administration single or combination vaccine inc oral 15 :19:04 CDT CPT-88516 Zoster Vaccine (Zostavax) 15:19:04 CDT CPT-51300 Administration single or combination vaccine inc oral 20 :51:03 CDT CPT-90091 Influenza split virus > age 3 20:51:03 CDT CPT-87908 No Charge Offi Visit 14:52:03 CDT CPT-OV Office Visit 14:57:43 CDT CPT-OV Office Visit 15:22:32 CDT CPT-27436 Administration single or combination vaccine inc oral 11 :33:15 CDT CPT-11418 Influenza split virus > age 3 11:33:15 CDT
--- OUTSIDE RECORDS SUMMARY | 2018-04-25 12:36 | XMS REPORT | Clinical Summary ---
Author Author Admin, SACHI Organization [employer] Address Unknown Phone Unavailable Allergies, Adverse Reactions, [...] Landeros MD FREQUENCY, URINARY ICD-788.41 Inactive Elvira Cervnates MD PhD FEVER UNSPECIFIED ICD-780.60 Inactive Tu [...] MD Leg pain, left ICD-729.5 Inactive Tu Lanedros MD Vision impairment, both eyes, impairment level [...] CAPSULE 1 po TID PRN Pain INDOMETHACIN 66362308749 Active Tu Landeros MD Active PROMETHAZINE-CODEINE 6.25-10 MG/5ML ORAL SYRUP 5ml po q6hr PRN Cough PROMETHAZINE-CODEINE 95440473346 No Longer Active Tu Landeros MD Active AZITHROMYCIN 250 MG ORAL TABLET 2 po qd x 1, then 1 po qd x 4 AZITHROMYCIN 74470460059 No Longer Active Tu Landeros MD Active GUAIFENESIN ER 600 MG ORAL TABLET EXTENDED RELEASE 12 HOUR 1 twice a day as needed for congestion GUAIFENESIN 12561711947 No Longer Active Tu Landeros MD Active PREDNISONE 20 MG ORAL TABLET 2 po qd x 5 days PREDNISONE 07706683033 No Longer Active Tu Landeros MD Active FLUTICASONE PROPIONATE 50 MCG/ACT NASAL SUSPENSION 2 sprays/nostril qd PRN Congestion/Allergies FLUTICASONE PROPIONATE 80612777214 Active Tu Landeros MD Active NASONEX 50 MCG/ACT NASAL SUSPENSION 2 actuations in each nostril q day 07/15 MOMETASONE FUROATE 23882413390 No Longer Active Tu Landeros MD Active MAGNESIUM OXIDE 400 MG ORAL TABLET 1 po BID MAGNESIUM OXIDE 11282716267 Active Tu Landeros MD Active SIMVASTATIN 20 MG ORAL TABLET 0.5 po qHS SIMVASTATIN 12412776210 Active Tu Landeros MD Active DICLOFENAC SODIUM 75 MG ORAL TABLET DELAYED RELEASE 1 po BID PRN Pain DICLOFENAC SODIUM 85625643487 No Longer Active Tu Landeros MD Active GABAPENTIN 100 MG ORAL CAPSULE 1 po TID GABAPENTIN 41027493903 Active Tu Landeros MD Active DICLOFENAC SODIUM 50 MG ORAL TABLET DELAYED RELEASE 1 po BID PRN Pain DICLOFENAC SODIUM 25352345610 No Longer Active Tu Landeros MD Active CYCLOBENZAPRINE HCL 10 MG ORAL TABLET 1 po TID PRN Muscle Spasm CYCLOBENZAPRINE HCL 09976014335 No Longer Active Tu Landeros MD Active INVOKANA 100 MG ORAL TABLET 1 po qd CANAGLIFLOZIN 27778536747 Active José Luis Becerra MD Active GLIPIZIDE 5 MG ORAL TABLET 1 po qd GLIPIZIDE 20553834348 No Longer Active Tu Landeros MD Active VENLAFAXINE HCL 75 MG ORAL TABLET 1 po BID VENLAFAXINE HCL 91317018617 Active Tu Landeros MD Active GLIMEPIRIDE 1 MG ORAL TABLET 1 po qd GLIMEPIRIDE 61326180892 No Longer Active Tu Landeros MD Active TRUE METRIX BLOOD GLUCOSE TEST IN VITRO STRIP Test blood sugar BID Dx: E11.9 GLUCOSE BLOOD 79476142522 Active Tu Landeros MD Active TRUE METRIX AIR GLUCOSE METER w/Device KIT Test blood glucose BID Dx: E11.9 BLOOD GLUCOSE MONITORING SUPPL 80054815689 Active Tu Landeros MD Active TRUETEST TEST IN VITRO STRIP test blood sugar twice daily. DX 250.0 GLUCOSE BLOOD 34553397117 No Longer Active Mirna Stanley LPN Active TRUEDRAW LANCING DEVICE test blood sugar twice daily dx: 250.00 LANCET DEVICES 96121344142 No Longer Active Mirna Stanley LPN Active ENALAPRIL MALEATE 20 MG ORAL TABLET 2 po qd ENALAPRIL MALEATE 63846876638 Active Tu Landeros MD Active SUPER B COMPLEX/VITAMIN C ORAL TABLET 1 qd B COMPLEX- C 94257171941 No Longer Active Tu Landeros MD Active ASPIRIN EC 81 MG ORAL TABLET DELAYED RELEASE 1 po qd ASPIRIN 25727492755 Active Tu Landeros MD Active GLUCOSAMINE 500 MG TABS 2 po qd GLUCOSAMINE Active Tu Landeros MD Active FISH OIL 1000 MG ORAL CAPSULE 1 po qd OMEGA-3 FATTY ACIDS 53586269012 Active Tu Landeros MD Active METFORMIN HCL 1000 MG ORAL TABLET 1 po BID METFORMIN HCL 83645312898 Active Tu Landeros MD Active KLOR-CON 10 10 MEQ ORAL TABLET EXTENDED RELEASE 2 po qd POTASSIUM CHLORIDE 14626634208 Active Tu Landeros MD Active FUROSEMIDE 40 MG ORAL TABLET 1 po qd FUROSEMIDE 57120271245 Active Tu Landeros MD Active REQUIP 2 MG ORAL TABLET 1 po qHS PRN Restless legs ROPINIROLE HCL 67854026906 Active Tu Landeros MD Active REQUIP 2 MG ORAL TABLET Take one tablet at bedtime prn ROPINIROLE HCL 77588346125 No Longer Active Tu Landeros MD Active VENTOLIN HFA 108 (90 Base) MCG/ACT INHALATION AEROSOL SOLUTION 1-2 puffs every 4 hours if needed for cough/congestion ALBUTEROL SULFATE 12460317473 No Longer Active Ambika Aden APRN Active ZITHROMAX 250 MG ORAL TABLET 2 po today, then 1 po q days 2-5 AZITHROMYCIN 82019423781 No Longer Active Miranda Farah APRN Active FLONASE 50 MCG/ACT NASAL SUSPENSION 1 spray each nostril twice daily until bottle empty FLUTICASONE PROPIONATE 93696438114 No Longer Active Tu Landeros MD Active COLACE 100 MG ORAL CAPSULE 1 po BID PRN Constipation DOCUSATE SODIUM 46713854173 Active Tu Landeros MD Active TRUERESULT BLOOD GLUCOSE w/Device KIT test blood sugar twice daily dx 250.00 BLOOD GLUCOSE MONITORING SUPPL 52837087903 No Longer Active Tu Landeros MD Active TRUEDRAW LANCING DEVICE Test twice a day dx 250.0 LANCET DEVICES 32198770316 No Longer Active Tu Landeros MD Active PREDNISONE 20 MG ORAL TABLET 2 tablets once daily for 2 days, then 1 tablet once daily for 2 days PREDNISONE 79222903064 No Longer Active Tu Landeros MD Active DICLOFENAC SODIUM 50 MG ORAL TABLET DELAYED RELEASE 1 tablet by mouth three times a day as needed DICLOFENAC SODIUM 00966162215 No Longer Active Fab Morales DO Active EMBRACE BLOOD GLUCOSE TEST IN VITRO STRIP test blood sugar twice daily DX 250.0 GLUCOSE BLOOD 74286557150 No Longer Active Tu Landeros MD Active TRUETEST TEST IN VITRO STRIP test blood sugar three times daily dx: 250.00 GLUCOSE BLOOD 17667665935 No Longer Active Suzebianca VOGEL Active TRUERESULT BLOOD GLUCOSE w/Device KIT use to test blood sugar tid dx: 250.00 BLOOD GLUCOSE MONITORING SUPPL 07290347630 No Longer Active Suze Corey NURYSA Active ALIGN 4 MG ORAL CAPSULE 1 tid PROBIOTIC PRODUCT 43972349845 No Longer Active Shaun Sy MD Active CIPRO 500 MG ORAL TABLET 1 bid x 14 days start 09-28-13 CIPROFLOXACIN HCL 75156799154 No Longer Active Shaun yS MD Active TRAMADOL HCL 50 MG ORAL TABLET 1-2 tablets every 6 hours as needed for pain TRAMADOL HCL 61665814040 Active Tu Landeros MD Active HYDROCODONE-ACETAMINOPHEN 5-325 MG ORAL TABLET 1 tab by mouth every 6 hours as needed for pain HYDROCODONE-ACETAMINOPHEN 70439435693 No Longer Active Tu Landeros MD Active OMEPRAZOLE 20 MG ORAL CAPSULE DELAYED RELEASE 1 po q a.m. OMEPRAZOLE 70797172683 Active Tu Landeros MD Active GABAPENTIN 100 MG ORAL CAPSULE 1 po bid GABAPENTIN 19880013469 No Longer Active Tu Landeros MD Active B-12 100 MCG ORAL TABLET Take one by mouth daily CYANOCOBALAMIN 98144589872 No Longer Active Tu Landeros MD Active BACTRIM DS 800-160 MG ORAL TABLET 1 bid x 14 day start 09-28-13 SULFAMETHOXAZOLE-TRIMETHOPRIM 72895350050 No Longer Active Tu Landeros MD Active CARVEDILOL 12.5 MG ORAL TABLET 1 po BID CARVEDILOL 26174351102 Active Tu Landeros MD Active TRILIPIX 135 MG ORAL CAPSULE DELAYED RELEASE 1 q hs CHOLINE FENOFIBRATE 97909577952 Active Tu Landeros MD Active FENOFIBRATE 145 MG ORAL TABLET 1 po qd FENOFIBRATE 87120003765 No Longer Active JASPREET Perez Active OMEPRAZOLE 20 MG ORAL TABLET DELAYED RELEASE 1 PO 30 MIN BEFORE 1ST MEAL 2010 OMEPRAZOLE 31049265988 No Longer Active JASPREET Perez Active SIMVASTATIN 40 MG ORAL TABLET Take one by mouth daily SIMVASTATIN 38569800961 No Longer Active JASPREET Perez Active VENLAFAXINE HCL 75 MG ORAL TABLET 1 po BID VENLAFAXINE HCL 91740089905 No Longer Active JASPREET Perez Active CIPRO 500 MG ORAL TABLET 1 tablet by mouth twice daily CIPROFLOXACIN HCL 12886881679 No Longer Active Tu Landeros MD Active VENLAFAXINE HCL 37.5 MG ORAL TABLET 1 po BID VENLAFAXINE HCL 09244296477 No Longer Active Suze Nicole A Active LAMISIL 250 MG ORAL TABLET 1 po qd TERBINAFINE HCL 60586331991 No Longer Active Tu Landeros MD Active LORTAB 5-500 MG ORAL TABLET 1/2 to 1 tablet by mouth every 4 hours as needed for pain HYDROCODONE-ACETAMINOPHEN 17429741238 No Longer Active Tu Landeros MD Active HYDROCODONE-ACETAMINOPHEN 5-500 MG ORAL TABLET take one po Q 4-6 hours prn HYDROCODONE-ACETAMINOPHEN 43355402121 No Longer Active Tu Landeros MD Active BACTRIM DS 800-160 MG ORAL TABLET 1 po BID x 7 days SULFAMETHOXAZOLE-TRIMETHOPRIM 81642381333 No Longer Active Tu Landeros MD Active VENLAFAXINE HCL 75 MG ORAL TABLET 1 po BID VENLAFAXINE HCL 83773302975 No Longer Active Elvira Cervantes MD PhD Active TRAMADOL HCL 50 MG ORAL TABLET 1 tablets every 6 hours as needed for pain TRAMADOL HCL 86940316216 No Longer Active Tu Landeros MD Active ACCU-CHEK FASTCLIX LANCETS Use to check bloodsugar three times daily as needed LANCETS 87269843705 No Longer Active Tu Landeros MD Active ACCU-CHEK KEYONA PLUS IN VITRO STRIP Use for testing bloodsugars three times daily as needed GLUCOSE BLOOD 61549661640 No Longer Active Tu Landeros MD Active ACCU-CHEK KEYONA PLUS w/Device KIT Use for testing bloodsugars three times daily as needed BLOOD GLUCOSE MONITORING SUPPL 87671936189 No Longer Active Tu Landeros MD Active SPIRONOLACTONE 25 MG ORAL TABLET 0.5 tablet by mouth daily 09/09 SPIRONOLACTONE 22956388114 No Longer Active Tu Landeros MD Active ALPRAZOLAM 0.5 MG ORAL TABLET 1 tab every 6hrs as needed ALPRAZOLAM 69020613478 No Longer Active Tu Landeros MD Active AUGMENTIN 875-125 MG ORAL TABLET 1 tab by mouth twice daily with food AMOXICILLIN-POT CLAVULANATE 98656483984 No Longer Active Tu Landeros MD Active PREDNISONE 20 MG ORAL TABLET 2 tabs daily for 3 days, 1 tab daily for 3 days, 1/2 tab daily for 2 days PREDNISONE 95510951179 No Longer Active Tu Landeros MD Active XANAX 0.5 MG ORAL TABLET 1 tablet every 6 hrs prn ALPRAZOLAM 71764503580 No Longer Active Tu Landeros MD Active PREDNISONE 20 MG ORAL TABLET 2 tabs daily for 3 days, 1 tab daily for 3 days, 1/2 tab daily for 2 days PREDNISONE 38965719418 No Longer Active Tu Landeros MD Active TRIAMCINOLONE ACETONIDE 0.1 % EXTERNAL OINTMENT Apply to affected areas TID for up to 2 weeks TRIAMCINOLONE ACETONIDE 24956123296 No Longer Active Tu Landeros MD Active LORTAB 5-500 MG ORAL TABLET 1/2 to 1 tablet by mouth every 4 hours as needed for pain HYDROCODONE-ACETAMINOPHEN 21289920397 No Longer Active Tu Landeros MD Active MULTIVITAMINS TABS Take one by mouth daily MULTIPLE VITAMIN 35952774375 No Longer Active Tu Landeros MD Active MELATONIN 5 MG ORAL TABLET Take one by mouth daily MELATONIN 44042434957 No Longer Active Tu Landeros MD Active SOMA 350 MG ORAL TABLET 1 po q 6 hours prn spasm CARISOPRODOL 05533542431 No Longer Active Tu Landeros MD Active MECLIZINE HCL 25 MG ORAL TABLET CHEWABLE 1 four times a day as needed for dizziness MECLIZINE HCL 60984976906 No Longer Active Fab Morales DO Active ANGEL BREEZE 2 TEST IN VITRO DISK test tid prn GLUCOSE BLOOD 64214649148 No Longer Active Negra Scott MICHAEL Active REGLAN 10 MG ORAL TABLET 1 po TID PRN Nausea METOCLOPRAMIDE HCL 88891138641 No Longer Active Tu Landeros MD Active METFORMIN HCL 500 MG ORAL TABLET 1 PO BID METFORMIN HCL 26883793151 No Longer Active Tu Landeros MD Active AMBIEN 10 MG ORAL TABLET 1 tab by mouth at bedtime as needed for sleep 06/10 ZOLPIDEM TARTRATE 07175625887 No Longer Active Tu Landeros MD Active FLUOXETINE HCL 40 MG ORAL CAPSULE 1 po q day FLUOXETINE HCL 56786764377 No Longer Active Mayra Terry Active TRILIPIX 135 MG ORAL CAPSULE DELAYED RELEASE 1 po qd CHOLINE FENOFIBRATE 27118236774 No Longer Active Tu Landeros MD Active AMBIEN 10 MG ORAL TABLET 1 tab by mouth at bedtime as needed for sleep 06/10 AMBIEN 10 MG ORAL TABLET 236220 ZOLPIDEM TARTRATE Inactive METFORMIN HCL 500 MG ORAL TABLET 1 PO BID METFORMIN HCL 500 MG ORAL TABLET 388019 METFORMIN HCL Inactive REGLAN 10 MG ORAL TABLET 1 po TID PRN Nausea REGLAN 10 MG ORAL TABLET 107712 METOCLOPRAMIDE HCL Inactive MECLIZINE HCL 25 MG ORAL TABLET CHEWABLE 1 four times a day as needed for dizziness MECLIZINE HCL 25 MG ORAL TABLET CHEWABLE 848021 MECLIZINE HCL Inactive SOMA 350 MG ORAL TABLET 1 po q 6 hours prn spasm SOMA 350 MG ORAL TABLET 162742 CARISOPRODOL Inactive MELATONIN 5 MG ORAL TABLET Take one by mouth daily MELATONIN 5 MG ORAL TABLET 223620 MELATONIN Inactive MULTIVITAMINS TABS Take one by mouth daily MULTIVITAMINS TABS MULTIPLE VITAMIN Inactive LORTAB 5-500 MG ORAL TABLET 1/2 to 1 tablet by mouth every 4 hours as needed for pain LORTAB 5-500 MG ORAL TABLET HYDROCODONE- ACETAMINOPHEN Inactive XANAX 0.5 MG ORAL TABLET 1 tablet every 6 hrs prn XANAX 0.5 MG ORAL TABLET 535975 ALPRAZOLAM Inactive AUGMENTIN 875-125 MG ORAL TABLET 1 tab by mouth twice daily with food AUGMENTIN 875-125 MG ORAL TABLET 735545 AMOXICILLIN-POT CLAVULANATE Inactive ALPRAZOLAM 0.5 MG ORAL TABLET 1 tab every 6hrs as needed ALPRAZOLAM 0.5 MG ORAL TABLET 072118 ALPRAZOLAM Inactive SPIRONOLACTONE 25 MG ORAL TABLET 0.5 tablet by mouth daily 09/09 SPIRONOLACTONE 25 MG ORAL TABLET 988103 SPIRONOLACTONE Inactive ACCU-CHEK KEYONA PLUS w/Device KIT [...] times daily as needed ACCU-CHEK FASTCLIX LANCETS 36415335843 LANCETS Inactive TRAMADOL HCL 50 MG ORAL TABLET 1 tablets every 6 hours as needed for pain TRAMADOL HCL 50 MG ORAL TABLET 540869 TRAMADOL HCL Inactive VENLAFAXINE HCL 75 MG ORAL TABLET 1 po BID VENLAFAXINE HCL 75 MG ORAL TABLET 314749 VENLAFAXINE HCL Inactive HYDROCODONE-ACETAMINOPHEN 5-500 MG ORAL TABLET take one po Q 4-6 hours prn HYDROCODONE-ACETAMINOPHEN 5-500 MG ORAL TABLET HYDROCODONE-ACETAMINOPHEN Inactive LORTAB 5-500 MG ORAL TABLET 1/2 to 1 tablet by mouth every 4 hours as needed for pain LORTAB 5-500 MG ORAL TABLET HYDROCODONE- ACETAMINOPHEN Inactive LAMISIL 250 MG ORAL TABLET 1 po qd LAMISIL 250 MG ORAL TABLET 372148 TERBINAFINE HCL Inactive VENLAFAXINE HCL 37.5 MG ORAL TABLET 1 po BID VENLAFAXINE HCL 37.5 MG ORAL TABLET 752816 VENLAFAXINE HCL Inactive CIPRO 500 MG ORAL TABLET 1 tablet by mouth twice daily CIPRO 500 MG ORAL TABLET 323692 CIPROFLOXACIN HCL Inactive VENLAFAXINE HCL 75 MG ORAL TABLET 1 po BID VENLAFAXINE HCL 75 MG ORAL TABLET 744256 VENLAFAXINE HCL Inactive SIMVASTATIN 40 MG ORAL TABLET Take one by mouth daily SIMVASTATIN 40 MG ORAL TABLET 134523 SIMVASTATIN Inactive OMEPRAZOLE 20 MG ORAL TABLET DELAYED RELEASE 1 PO 30 MIN BEFORE 1ST MEAL 2010 OMEPRAZOLE 20 MG ORAL TABLET DELAYED RELEASE 956212 OMEPRAZOLE Inactive FENOFIBRATE 145 MG ORAL TABLET 1 po qd FENOFIBRATE 145 MG ORAL TABLET 678399 FENOFIBRATE Inactive BACTRIM DS 800-160 MG ORAL TABLET 1 bid x 14 day start 09-28-13 BACTRIM DS 800-160 MG ORAL TABLET 089328 SULFAMETHOXAZOLE- TRIMETHOPRIM Inactive B-12 100 MCG ORAL TABLET Take one by mouth daily B-12 100 MCG ORAL TABLET CYANOCOBALAMIN Inactive GABAPENTIN 100 MG ORAL CAPSULE 1 po bid GABAPENTIN 100 MG ORAL CAPSULE 066400 GABAPENTIN Inactive HYDROCODONE-ACETAMINOPHEN 5-325 MG ORAL TABLET 1 tab by mouth every 6 hours as needed for pain HYDROCODONE-ACETAMINOPHEN 5-325 MG ORAL TABLET 771050 HYDROCODONE-ACETAMINOPHEN Inactive CIPRO 500 MG ORAL TABLET 1 bid x 14 days start 09-28-13 CIPRO 500 MG ORAL TABLET 342320 CIPROFLOXACIN HCL Inactive ALIGN 4 MG ORAL [...] SODIUM 50 MG ORAL TABLET DELAYED RELEASE 056052 DICLOFENAC SODIUM Inactive PREDNISONE 20 MG ORAL TABLET 2 tablets once daily for 2 days, then 1 tablet once daily for 2 days PREDNISONE 20 MG ORAL TABLET 013029 PREDNISONE Inactive TRUEDRAW LANCING DEVICE Test twice a day dx 250.0 TRUEDRAW LANCING DEVICE LANCET DEVICES Inactive TRUERESULT BLOOD GLUCOSE w/Device KIT test blood sugar twice daily dx 250.00 TRUERESULT BLOOD GLUCOSE w/Device KIT BLOOD GLUCOSE MONITORING SUPPL Inactive FLONASE 50 MCG/ACT NASAL SUSPENSION 1 spray each nostril twice daily until bottle empty FLONASE 50 MCG/ACT NASAL SUSPENSION 1114003 FLUTICASONE PROPIONATE Inactive VENTOLIN HFA 108 (90 Base) MCG/ACT INHALATION AEROSOL SOLUTION 1-2 puffs every 4 hours if needed for cough/congestion VENTOLIN HFA 108 (90 Base) MCG/ACT INHALATION AEROSOL SOLUTION ALBUTEROL SULFATE Inactive REQUIP 2 MG ORAL TABLET Take one tablet at bedtime prn REQUIP 2 MG ORAL TABLET 533424 ROPINIROLE HCL Inactive SUPER B COMPLEX/VITAMIN C ORAL TABLET 1 qd SUPER B COMPLEX/VITAMIN C ORAL TABLET 81941324547 B COMPLEX-C Inactive TRUEDRAW LANCING DEVICE test blood sugar twice daily dx: 250.00 TRUEDRAW LANCING DEVICE LANCET DEVICES Inactive TRUETEST TEST IN VITRO STRIP test blood sugar twice daily. DX 250.0 TRUETEST TEST IN VITRO STRIP GLUCOSE BLOOD Inactive CYCLOBENZAPRINE HCL 10 MG ORAL TABLET 1 po TID PRN Muscle Spasm CYCLOBENZAPRINE HCL 10 MG ORAL TABLET 627343 CYCLOBENZAPRINE HCL Inactive DICLOFENAC SODIUM 50 MG ORAL TABLET DELAYED RELEASE 1 po BID PRN Pain DICLOFENAC SODIUM 50 MG ORAL TABLET DELAYED RELEASE 935963 DICLOFENAC SODIUM Inactive DICLOFENAC SODIUM 75 MG ORAL TABLET DELAYED RELEASE 1 po BID PRN Pain DICLOFENAC SODIUM 75 MG ORAL TABLET DELAYED RELEASE 663978 DICLOFENAC SODIUM Inactive NASONEX 50 MCG/ACT NASAL SUSPENSION 2 actuations in each nostril q day 07/15 NASONEX 50 MCG/ACT NASAL SUSPENSION 3189380 MOMETASONE FUROATE Inactive GUAIFENESIN ER 600 MG ORAL TABLET EXTENDED RELEASE 12 HOUR 1 twice a day as needed for congestion GUAIFENESIN ER 600 MG ORAL TABLET EXTENDED RELEASE 12 HOUR GUAIFENESIN Inactive AZITHROMYCIN 250 MG ORAL TABLET 2 po qd x 1, then 1 po qd x 4 AZITHROMYCIN 250 MG ORAL TABLET 931376 AZITHROMYCIN Inactive PROMETHAZINE-CODEINE 6.25-10 MG/5ML ORAL SYRUP 5ml po q6hr PRN Cough PROMETHAZINE-CODEINE 6.25-10 MG/5ML ORAL SYRUP 285935 PROMETHAZINE-CODEINE Inactive TRIAMCINOLONE ACETONIDE 0.1 % EXTERNAL OINTMENT Apply to affected areas TID for up to 2 weeks TRIAMCINOLONE ACETONIDE 0.1 % EXTERNAL OINTMENT 7163091 TRIAMCINOLONE ACETONIDE Inactive PREDNISONE 20 MG ORAL TABLET 2 tabs daily for 3 days, 1 tab daily for 3 days, 1/2 tab daily for 2 days PREDNISONE 20 MG ORAL TABLET 544832 PREDNISONE Inactive PREDNISONE 20 MG ORAL TABLET 2 tabs daily for 3 days, 1 tab daily for 3 days, 1/2 tab daily for 2 days PREDNISONE 20 MG ORAL TABLET 959355 PREDNISONE Inactive BACTRIM DS 800-160 MG ORAL TABLET 1 po BID x 7 days BACTRIM DS 800-160 MG ORAL TABLET 100049 SULFAMETHOXAZOLE-TRIMETHOPRIM Inactive ZITHROMAX 250 MG ORAL TABLET 2 po today, then 1 po q days 2-5 ZITHROMAX 250 MG ORAL TABLET 179268 AZITHROMYCIN Inactive PREDNISONE 20 MG ORAL TABLET 2 po qd x 5 days PREDNISONE 20 MG ORAL TABLET 150123 PREDNISONE Inactive Advance Directives Directive Description Start Date DISCUSSED WITH PATIENT -- NO DECISION MADE Immunizations Vaccine Administration Date Value Standard Description Seasonal influenza vaccine, injectable, containing preservative, for > 3 years old (Afluria, FluLaval, Fluzone, Fluvirin, Fluarix, Agriflu(>=18 yo)) Fluzone (>3 yrs.) [[id number]] Influenza, seasonal, injectable influenza immunization (Flu Vax) has been administered 02/22/2012 influenza virus vaccine, unspecified formulation Seasonal influenza vaccine, injectable, containing preservative, for > 3 years old (Afluria, FluLaval, Fluzone, Fluvirin, Fluarix, Agriflu(>=18 yo)) Fluzone (>3 yrs.) [[id number]] Influenza, seasonal, injectable Vital Signs Date Name [...] ... - Chemistry sodium, serum 141 mmol/L 798-126 3056/01/16 carbon dioxide, venous blood 28.3 mmol/L 21.0-32.0 [...] 6.7 % 4.3-6.0 cholesterol, serum 106 mg/dL 249-621 3405/01/16 triglyceride, serum, fasting 173 mg/dL 30-200 HDL [...] 4.3-6.0 Encounters Code Encounter Date Provider Facility CPT-31446 Level 3 Est. Patient 10:28:05 CDT Tu Landeros MD [facility] CPT-76143 Level 3 Est. Patient 09:11:32 CDT Tu Landeros MD [facility] CPT-83082 Level 3 Est. Patient 10:13:19 K 9 HANDLER/ DEPUTY Lesli Kellogg APRN [facility] CPT-44990 Level 4 Est. Patient 13:42:02 K 9 HANDLER/ DEPUTY Tu Landeros MD [facility] CPT-94453 Level 3 Est. Patient 14:20:36 CDT Tu Landeros MD [facility] CPT-52542 Level 4 Est. Patient 14:28:34 CDT Tu Landeros MD [facility] CPT-33983 Level 3 Est. Patient 13:33:09 CDT Tu Landeros MD [facility] CPT-01519 Level 4 Est. Patient 14:29:21 CDT Tu Landeros MD [facility] CPT-06213 Level 4 Est. Patient 09:08:17 K 9 HANDLER/ DEPUTY Tu Landeros MD [facility] CPT-92807 Level 4 Est. Patient 14:40:19 CDT Tu Landeros MD [facility] CPT-74317 Level 4 Est. Patient 14:06:04 K 9 HANDLER/ DEPUTY Tu Landeros MD [facility] CPT-30142 Level 3 Est. Patient 14:05:18 K 9 HANDLER/ DEPUTY Tu Landeros MD [facility] CPT-97028 Level 3 Est. Patient 10:06:54 K 9 HANDLER/ DEPUTY Miranda Farah APRN [facility] CPT-07911 Level 4 Est. Patient 13:50:18 K 9 HANDLER/ DEPUTY Tu Landeros MD [facility] CPT-09237 Level 3 Est. Patient 10:30:04 CDT Tu Landeros MD [facility] CPT-72545 Level 4 Est. Patient 11:03:38 CDT Tu Landeros MD [facility] CPT-38791 Level 3 Est. Patient 10:20:44 CDT Fab Morales DO [facility] CPT-81323 Level 4 Est. Patient 14:38:57 CDT Tu Landeros MD [facility] CPT-15463 Level 4 Est. Patient 14:27:39 K 9 HANDLER/ DEPUTY Tu Landeros MD [facility] CPT-06797 Level 4 Est. Patient 09:45:25 CDT uT Landeros MD [facility] CPT-35360 Level 4 Est. Patient 09:05:20 K 9 HANDLER/ DEPUTY Tu Landeros MD [facility] CPT-78392 Level 4 Est. Patient 14:09:06 CDT Tu Landeros MD [facility] CPT-34484 Level 3 Est. Patient 13:36:54 CDT Tu Landeros MD [facility] CPT-34916 Level 3 Est. Patient 08:59:14 CDT Tu Landeros MD [facility] CPT-38606 Level 3 Est. Patient 13:48:35 CDT Fab Morales DO [facility] CPT-49333 Level 4 Est. Patient 10:05:48 CDT Tu Landeros MD [facility] CPT-61608 Level 3 Est. Patient 13:38:42 CDT Marek BANKS [facility] CPT-60606 Level 5 Est. Patient 08:08:39 CDT Piyushrichajanelle Dawsontay FRANCIS [facility] CPT-17266 Level 4 Est. Patient 14:23:38 CDT Tu Landeros MD [facility] CPT-20860 Level 3 Est. Patient 11:44:04 CDT Tu Landeros MD [facility] CPT-27411 Level 3 Est. Patient 11:03:20 K 9 HANDLER/ DEPUTY Tu Landeros MD [facility] CPT-53792 Level 3 Est. Patient 11:03:14 K 9 HANDLER/ DEPUTY Tu Landeros MD [facility] CPT-04980 Level 3 Est. Patient 12:42:49 CDT Tu Landeros MD [facility] CPT-54171 Level 3 Est. Patient 11:52:06 CDT Tu Landeros MD [facility] CPT-92651 Level 3 Est. Patient 13:58:11 CDT Tu Landeros MD [facility] CPT-69693 Level 3 Est. Patient 17:50:07 CDT Fab Morales DO [facility] CPT-48893 Level 3 Est. Patient 12:06:29 CDT Elvira Cervantes MD PhD [facility] CPT-79245 Level 3 Est. Patient 15:50:32 CDT Tu Landeros MD [facility] CPT-22139 Level 4 Est. Patient 16:08:29 CDT Tu Landeros MD [facility] CPT-16867 Level 3 Est. Patient 16:04:19 CDT Tu Landeros MD [facility] CPT-21030 Level 3 Est. Patient 11:22:30 K 9 HANDLER/ DEPUTY Tu Landeros MD [facility] CPT-63290 Level 4 Est. Patient 16:24:02 K 9 HANDLER/ DEPUTY Tu Landeros MD [facility] CPT-09088 Level 3 Est. Patient 17:21:23 K 9 HANDLER/ DEPUTY Tu Landeros MD [facility] Procedures Code Procedure Name Date Entry Date Standard Description CPT-72597 Shoulder, right, comp min 2V - XRAY USE ONLY 13:50:22 CDT CPT-G0009 Administration of Pneumococcal Vaccine 15:08:26 CDT CPT-71990 Prevnar 13 Intramuscular Suspension 15:08:26 CDT 10/08 CPT-G0439 [facility] Annual Wellness Exam 14:29:22 CDT CPT-66914 Venipuncture Draw Fee 13:15:35 CDT CPT-82919 Magnesium - LAB USE ONLY 11:14:20 K 9 HANDLER/ DEPUTY CPT-06338 Lipid - LAB USE ONLY 11:14:20 K 9 HANDLER/ DEPUTY CPT-39219 HGBA1C - LAB USE ONLY 11:14:20 K 9 HANDLER/ DEPUTY CPT-02197 CMP - LAB USE ONLY 11:14:19 K 9 HANDLER/ DEPUTY CPT-74136 CBC - LAB USE ONLY 11:14:19 K 9 HANDLER/ DEPUTY CPT-48665 Venipuncture Draw Fee 11:14:18 K 9 HANDLER/ DEPUTY CPT-96235 First Vx - Ix admin for Medicare patients 16:46:52 CDT CPT-19238 Fluzone Preservative Free Intramuscular Suspension 16:46 :51 CDT CPT-43414 CBC - LAB USE ONLY 17:14:46 CDT CPT-06005 HGBA1C - LAB USE ONLY 17:14:46 CDT CPT-87608 Venipuncture Draw Fee 17:14:46 CDT CPT-G0438 Initial Annual Wellness Exam 14:13:04 CDT CPT-33037 Breathing Tx 10:06:54 K 9 HANDLER/ DEPUTY CPT-83024 Postop F/U Visit 10:02:45 CDT CPT-LR Lesion Removal 09:02:56 CDT CPT-JTINJ Asp/Joint Injection 15:51:27 K 9 HANDLER/ DEPUTY CPT-OV Office Visit 15:52:02 K 9 HANDLER/ DEPUTY CPT-OV Office Visit 15:45:11 CDT CPT-000 Give Zostavax 14:09:06 CDT CPT-88989 Administration single or combination vaccine inc oral 15 :19:04 CDT CPT-42564 Zoster Vaccine (Zostavax) 15:19:04 CDT CPT-07904 Administration single or combination vaccine inc oral 20 :51:03 CDT CPT-79691 Influenza split virus > age 3 20:51:03 CDT CPT-26573 No Charge Offi Visit 14:52:03 CDT CPT-OV Office Visit 14:57:43 CDT CPT-OV Office Visit 15:22:32 CDT CPT-84601 Administration single or combination vaccine inc oral 11 :33:15 CDT CPT-21344 Influenza split virus > age 3 11:33:15 CDT
--- OUTSIDE RECORDS SUMMARY | 2018-04-25 12:38 | XMS REPORT | Clinical Summary ---
Author Author Admin, SACHI Organization [employer] Address Unknown Phone Unavailable Allergies, Adverse Reactions, [...] INSOMNIA, PERSISTENT ICD-307.42 Inactive Tu Landeros MD DIZZINESS ICD-780.4 Inactive Tu Landeros MD GASTROENTERITIS ICD-558.9 Inactive Tu Landeros MD LEG CRAMPS, NOCTURNAL ICD-729.82 Inactive Tu Landeros MD FREQUENCY, URINARY ICD-788.41 Inactive Elvira Cervantes MD PhD FEVER UNSPECIFIED ICD-780.60 Inactive Tu Landeros MD MUSCLE SPASM ICD-728.85 Inactive Tu Landeros MD BENIGN PAROXYSMAL POSITIONAL VERTIGO ICD-386.11 Inactive Tu Landeros MD SHOULDER PAIN, LEFT ICD-719.41 Inactive Tu Landeros MD RASH AND OTHER NONSPECIFIC SKIN ERUPTION ICD-782.1 Inactive Tu Landeros MD FATIGUE ICD-780.79 Inactive Tu Landeros MD 2012 CARPAL TUNNEL SYNDROME ICD-354.0 Inactive Tu Landeros MD ARTHRITIS ICD-716.90 Inactive Tu Landeros MD KNEE PAIN ICD-719.46 Inactive Tu Landeros MD SCIATICA ICD-724.3 Inactive Tu Landeros MD 2012 PARESTHESIA ICD-782.0 Inactive Tu Landeros MD LOCALIZED SUPERFICIAL SWELLING MASS OR LUMP ICD-782.2 Inactive Tu Landeros MD CONTUSION OF UNSPECIFIED SITE ICD-924.9 Inactive Tu Landeros MD ONYCHOMYCOSIS ICD-110.1 Inactive Tu Landeros MD PRESSURE ULCER UNSPECIFIED SITE ICD-707.00 Inactive Tu Landeros MD Upper respiratory infection, viral ICD-465.9 Inactive Shaun Sy MD Open wound of other and unspecified parts of trunk, complicated ICD-879.7 Inactive Tu Landeros MD Knee pain, left, acute ICD-719.46 Inactive Tu Landeros MD Osteoarthritis ICD-715.90 Inactive Tu Landeros MD Ear pain, bilateral ICD-388.70 Tessa Landeros MD Hot flashes ICD-627.2 Inactive Tu Landeros MD Sebaceous cyst ICD-706.2 Inactive Tu Landeros MD Upper respiratory infection, viral ICD-465.9 Inactive Tu Landeros MD Sinusitis - acute ICD-461.9 Inactive Tu Landeros MD Leg pain, left ICD-729.5 Inactive Tu Landeros MD Open wound of abdominal wall, anterior, complicated ICD-879.3 Inactive Tu Landeros MD Vision impairment, both [...] CAPSULE 1 po TID PRN Pain INDOMETHACIN 54348638695 Active Tu Landeros MD Active PROMETHAZINE-CODEINE 6.25-10 MG/5ML ORAL SYRUP 5ml po q6hr PRN Cough PROMETHAZINE-CODEINE 39824424934 No Longer Active Tu Landeros MD Active AZITHROMYCIN 250 MG ORAL TABLET 2 po qd x 1, then 1 po qd x 4 AZITHROMYCIN 96264563777 No Longer Active Tu Landeros MD Active GUAIFENESIN ER 600 MG ORAL TABLET EXTENDED RELEASE 12 HOUR 1 twice a day as needed for congestion GUAIFENESIN 15102871834 No Longer Active Tu Landeros MD Active PREDNISONE 20 MG ORAL TABLET 2 po qd x 5 days PREDNISONE 32222746582 No Longer Active Tu Landeros MD Active FLUTICASONE PROPIONATE 50 MCG/ACT NASAL SUSPENSION 2 sprays/nostril qd PRN Congestion/Allergies FLUTICASONE PROPIONATE 12735410173 Active Tu Landeros MD Active NASONEX 50 MCG/ACT NASAL SUSPENSION 2 actuations in each nostril q day 07/15 MOMETASONE FUROATE 09380187135 No Longer Active Tu Landeros MD Active MAGNESIUM OXIDE 400 MG ORAL TABLET 1 po BID MAGNESIUM OXIDE 23564072168 Active Tu Landeros MD Active SIMVASTATIN 20 MG ORAL TABLET 0.5 po qHS SIMVASTATIN 62025580245 Active Tu Landeros MD Active DICLOFENAC SODIUM 75 MG ORAL TABLET DELAYED RELEASE 1 po BID PRN Pain DICLOFENAC SODIUM 20135499465 No Longer Active Tu Landeros MD Active GABAPENTIN 100 MG ORAL CAPSULE 1 po TID GABAPENTIN 97093385982 Active Tu Landeros MD Active DICLOFENAC SODIUM 50 MG ORAL TABLET DELAYED RELEASE 1 po BID PRN Pain DICLOFENAC SODIUM 25519971526 No Longer Active Tu Landeros MD Active CYCLOBENZAPRINE HCL 10 MG ORAL TABLET 1 po TID PRN Muscle Spasm CYCLOBENZAPRINE HCL 50621698759 No Longer Active Tu Landeros MD Active INVOKANA 100 MG ORAL TABLET 1 po qd CANAGLIFLOZIN 75686195513 Active José Luis Becerra MD Active GLIPIZIDE 5 MG ORAL TABLET 1 po qd GLIPIZIDE 52163811149 No Longer Active Tu Landeros MD Active VENLAFAXINE HCL 75 MG ORAL TABLET 1 po BID VENLAFAXINE HCL 75463522283 Active Tu Landeros MD Active GLIMEPIRIDE 1 MG ORAL TABLET 1 po qd GLIMEPIRIDE 57907863786 No Longer Active Tu Landeros MD Active TRUE METRIX BLOOD GLUCOSE TEST IN VITRO STRIP Test blood sugar BID Dx: E11.9 GLUCOSE BLOOD 79138020374 Active Tu Landeros MD Active TRUE METRIX AIR GLUCOSE METER w/Device KIT Test blood glucose BID Dx: E11.9 BLOOD GLUCOSE MONITORING SUPPL 94050142448 Active Tu Landeros MD Active TRUETEST TEST IN VITRO STRIP test blood sugar twice daily. DX 250.0 GLUCOSE BLOOD 69287878359 No Longer Active Mirna Stanley LPN Active TRUEDRAW LANCING DEVICE test blood sugar twice daily dx: 250.00 LANCET DEVICES 31709767150 No Longer Active Mirna Stanley LPN Active ENALAPRIL MALEATE 20 MG ORAL TABLET 2 po qd ENALAPRIL MALEATE 55024973649 Active Tu Landeros MD Active SUPER B COMPLEX/VITAMIN C ORAL TABLET 1 qd B COMPLEX- C 36735806054 No Longer Active Tu Landeros MD Active ASPIRIN EC 81 MG ORAL TABLET DELAYED RELEASE 1 po qd ASPIRIN 26503102565 Active Tu Landeros MD Active GLUCOSAMINE 500 MG TABS 2 po qd GLUCOSAMINE Active Tu Landeros MD Active FISH OIL 1000 MG ORAL CAPSULE 1 po qd OMEGA-3 FATTY ACIDS 11602419944 Active Tu Landeros MD Active METFORMIN HCL 1000 MG ORAL TABLET 1 po BID METFORMIN HCL 82229467490 Active Tu Landeros MD Active KLOR-CON 10 10 MEQ ORAL TABLET EXTENDED RELEASE 2 po qd POTASSIUM CHLORIDE 79331407969 Active Tu Landeros MD Active FUROSEMIDE 40 MG ORAL TABLET 1 po qd FUROSEMIDE 10168824239 Active Tu Landeros MD Active REQUIP 2 MG ORAL TABLET 1 po qHS PRN Restless legs ROPINIROLE HCL 79985665371 Active Tu Landeros MD Active REQUIP 2 MG ORAL TABLET Take one tablet at bedtime prn ROPINIROLE HCL 62096018994 No Longer Active Tu Landeros MD Active VENTOLIN HFA 108 (90 Base) MCG/ACT INHALATION AEROSOL SOLUTION 1-2 puffs every 4 hours if needed for cough/congestion ALBUTEROL SULFATE 56837090883 No Longer Active Ambika Aden APRN Active ZITHROMAX 250 MG ORAL TABLET 2 po today, then 1 po q days 2-5 AZITHROMYCIN 71719497832 No Longer Active Miranda Farah APRN Active FLONASE 50 MCG/ACT NASAL SUSPENSION 1 spray each nostril twice daily until bottle empty FLUTICASONE PROPIONATE 45948228779 No Longer Active Tu Landeros MD Active COLACE 100 MG ORAL CAPSULE 1 po BID PRN Constipation DOCUSATE SODIUM 70844891288 Active Tu Landeros MD Active TRUERESULT BLOOD GLUCOSE w/Device KIT test blood sugar twice daily dx 250.00 BLOOD GLUCOSE MONITORING SUPPL 80625860623 No Longer Active Tu Landeros MD Active TRUEDRAW LANCING DEVICE Test twice a day dx 250.0 LANCET DEVICES 38931418730 No Longer Active Tu Landeros MD Active PREDNISONE 20 MG ORAL TABLET 2 tablets once daily for 2 days, then 1 tablet once daily for 2 days PREDNISONE 50308934353 No Longer Active Tu Landeros MD Active DICLOFENAC SODIUM 50 MG ORAL TABLET DELAYED RELEASE 1 tablet by mouth three times a day as needed DICLOFENAC SODIUM 29544000367 No Longer Active Fab Morales DO Active EMBRACE BLOOD GLUCOSE TEST IN VITRO STRIP test blood sugar twice daily DX 250.0 GLUCOSE BLOOD 49738756988 No Longer Active Tu Landeros MD Active TRUETEST TEST IN VITRO STRIP test blood sugar three times daily dx: 250.00 GLUCOSE BLOOD 14456341449 No Longer Active Suzebianca VOGEL Active TRUERESULT BLOOD GLUCOSE w/Device KIT use to test blood sugar tid dx: 250.00 BLOOD GLUCOSE MONITORING SUPPL 22617562251 No Longer Active Suze Corey NURYSA Active ALIGN 4 MG ORAL CAPSULE 1 tid PROBIOTIC PRODUCT 18260153895 No Longer Active Shaun Sy MD Active CIPRO 500 MG ORAL TABLET 1 bid x 14 days start 09-28-13 CIPROFLOXACIN HCL 28956451374 No Longer Active Shaun Sy MD Active TRAMADOL HCL 50 MG ORAL TABLET 1-2 tablets every 6 hours as needed for pain TRAMADOL HCL 32975723042 Active Tu Landeros MD Active HYDROCODONE-ACETAMINOPHEN 5-325 MG ORAL TABLET 1 tab by mouth every 6 hours as needed for pain HYDROCODONE-ACETAMINOPHEN 96494526531 No Longer Active Tu Landeros MD Active OMEPRAZOLE 20 MG ORAL CAPSULE DELAYED RELEASE 1 po q a.m. OMEPRAZOLE 96114632806 Active Tu Landeros MD Active GABAPENTIN 100 MG ORAL CAPSULE 1 po bid GABAPENTIN 69288890928 No Longer Active Tu Landeros MD Active B-12 100 MCG ORAL TABLET Take one by mouth daily CYANOCOBALAMIN 33837211310 No Longer Active Tu Landeros MD Active BACTRIM DS 800-160 MG ORAL TABLET 1 bid x 14 day start 09-28-13 SULFAMETHOXAZOLE-TRIMETHOPRIM 48064770466 No Longer Active Tu Landeros MD Active CARVEDILOL 12.5 MG ORAL TABLET 1 po BID CARVEDILOL 32150609280 Active Tu Landeros MD Active TRILIPIX 135 MG ORAL CAPSULE DELAYED RELEASE 1 q hs CHOLINE FENOFIBRATE 55832525436 Active Tu Landeros MD Active FENOFIBRATE 145 MG ORAL TABLET 1 po qd FENOFIBRATE 59117403766 No Longer Active JASPREET Perez Active OMEPRAZOLE 20 MG ORAL TABLET DELAYED RELEASE 1 PO 30 MIN BEFORE 1ST MEAL 2010 OMEPRAZOLE 06827900149 No Longer Active JASPREET Perez Active SIMVASTATIN 40 MG ORAL TABLET Take one by mouth daily SIMVASTATIN 88038153301 No Longer Active JASPREET Perez Active VENLAFAXINE HCL 75 MG ORAL TABLET 1 po BID VENLAFAXINE HCL 02159093431 No Longer Active JASPREET Perez Active CIPRO 500 MG ORAL TABLET 1 tablet by mouth twice daily CIPROFLOXACIN HCL 01621336832 No Longer Active Tu Landeros MD Active VENLAFAXINE HCL 37.5 MG ORAL TABLET 1 po BID VENLAFAXINE HCL 41735620962 No Longer Active Suze Nicole A Active LAMISIL 250 MG ORAL TABLET 1 po qd TERBINAFINE HCL 60992978662 No Longer Active Tu Landeros MD Active LORTAB 5-500 MG ORAL TABLET 1/2 to 1 tablet by mouth every 4 hours as needed for pain HYDROCODONE-ACETAMINOPHEN 92837743318 No Longer Active Tu Landeros MD Active HYDROCODONE-ACETAMINOPHEN 5-500 MG ORAL TABLET take one po Q 4-6 hours prn HYDROCODONE-ACETAMINOPHEN 49534912247 No Longer Active Tu Landeros MD Active BACTRIM DS 800-160 MG ORAL TABLET 1 po BID x 7 days SULFAMETHOXAZOLE-TRIMETHOPRIM 73321032680 No Longer Active Tu Landeros MD Active VENLAFAXINE HCL 75 MG ORAL TABLET 1 po BID VENLAFAXINE HCL 89676849006 No Longer Active Elvira Cervantes MD PhD Active TRAMADOL HCL 50 MG ORAL TABLET 1 tablets every 6 hours as needed for pain TRAMADOL HCL 45954221395 No Longer Active Tu Landeros MD Active ACCU-CHEK FASTCLIX LANCETS Use to check bloodsugar three times daily as needed LANCETS 50139496373 No Longer Active Tu Landeros MD Active ACCU-CHEK KEYONA PLUS IN VITRO STRIP Use for testing bloodsugars three times daily as needed GLUCOSE BLOOD 92469855294 No Longer Active Tu Landeros MD Active ACCU-CHEK KEYONA PLUS w/Device KIT Use for testing bloodsugars three times daily as needed BLOOD GLUCOSE MONITORING SUPPL 72684874599 No Longer Active Tu Landeros MD Active SPIRONOLACTONE 25 MG ORAL TABLET 0.5 tablet by mouth daily 09/09 SPIRONOLACTONE 10449306158 No Longer Active Tu Landeros MD Active ALPRAZOLAM 0.5 MG ORAL TABLET 1 tab every 6hrs as needed ALPRAZOLAM 68347798678 No Longer Active Tu Landeros MD Active AUGMENTIN 875-125 MG ORAL TABLET 1 tab by mouth twice daily with food AMOXICILLIN-POT CLAVULANATE 50624500876 No Longer Active Tu Landeros MD Active PREDNISONE 20 MG ORAL TABLET 2 tabs daily for 3 days, 1 tab daily for 3 days, 1/2 tab daily for 2 days PREDNISONE 07598703740 No Longer Active Tu Landeros MD Active XANAX 0.5 MG ORAL TABLET 1 tablet every 6 hrs prn ALPRAZOLAM 46350706703 No Longer Active Tu Landeros MD Active PREDNISONE 20 MG ORAL TABLET 2 tabs daily for 3 days, 1 tab daily for 3 days, 1/2 tab daily for 2 days PREDNISONE 60399434124 No Longer Active Tu Landeros MD Active TRIAMCINOLONE ACETONIDE 0.1 % EXTERNAL OINTMENT Apply to affected areas TID for up to 2 weeks TRIAMCINOLONE ACETONIDE 87322569726 No Longer Active Tu Landeros MD Active LORTAB 5-500 MG ORAL TABLET 1/2 to 1 tablet by mouth every 4 hours as needed for pain HYDROCODONE-ACETAMINOPHEN 52879720682 No Longer Active Tu Landeros MD Active MULTIVITAMINS TABS Take one by mouth daily MULTIPLE VITAMIN 41136247789 No Longer Active Tu Landeros MD Active MELATONIN 5 MG ORAL TABLET Take one by mouth daily MELATONIN 27160264759 No Longer Active Tu Landeros MD Active SOMA 350 MG ORAL TABLET 1 po q 6 hours prn spasm CARISOPRODOL 81774917519 No Longer Active Tu Landeros MD Active MECLIZINE HCL 25 MG ORAL TABLET CHEWABLE 1 four times a day as needed for dizziness MECLIZINE HCL 42443601738 No Longer Active Fab Morales DO Active ANGEL BREEZE 2 TEST IN VITRO DISK test tid prn GLUCOSE BLOOD 74826229406 No Longer Active Negra Scott MICHAEL Active REGLAN 10 MG ORAL TABLET 1 po TID PRN Nausea METOCLOPRAMIDE HCL 42251281029 No Longer Active Tu Landeros MD Active METFORMIN HCL 500 MG ORAL TABLET 1 PO BID METFORMIN HCL 91896159853 No Longer Active Tu Landeros MD Active AMBIEN 10 MG ORAL TABLET 1 tab by mouth at bedtime as needed for sleep 06/10 ZOLPIDEM TARTRATE 75527019550 No Longer Active Tu Landeros MD Active FLUOXETINE HCL 40 MG ORAL CAPSULE 1 po q day FLUOXETINE HCL 72833119823 No Longer Active Mayra Terry Active TRILIPIX 135 MG ORAL CAPSULE DELAYED RELEASE 1 po qd CHOLINE FENOFIBRATE 97275741781 No Longer Active Tu Landeros MD Active AMBIEN 10 MG ORAL TABLET 1 tab by mouth at bedtime as needed for sleep 06/10 AMBIEN 10 MG ORAL TABLET 211304 ZOLPIDEM TARTRATE Inactive METFORMIN HCL 500 MG ORAL TABLET 1 PO BID METFORMIN HCL 500 MG ORAL TABLET 732548 METFORMIN HCL Inactive REGLAN 10 MG ORAL TABLET 1 po TID PRN Nausea REGLAN 10 MG ORAL TABLET 375831 METOCLOPRAMIDE HCL Inactive MECLIZINE HCL 25 MG ORAL TABLET CHEWABLE 1 four times a day as needed for dizziness MECLIZINE HCL 25 MG ORAL TABLET CHEWABLE 280819 MECLIZINE HCL Inactive SOMA 350 MG ORAL TABLET 1 po q 6 hours prn spasm SOMA 350 MG ORAL TABLET 451937 CARISOPRODOL Inactive MELATONIN 5 MG ORAL TABLET Take one by mouth daily MELATONIN 5 MG ORAL TABLET 237461 MELATONIN Inactive MULTIVITAMINS TABS Take one by mouth daily MULTIVITAMINS TABS MULTIPLE VITAMIN Inactive LORTAB 5-500 MG ORAL TABLET 1/2 to 1 tablet by mouth every 4 hours as needed for pain LORTAB 5-500 MG ORAL TABLET HYDROCODONE- ACETAMINOPHEN Inactive XANAX 0.5 MG ORAL TABLET 1 tablet every 6 hrs prn XANAX 0.5 MG ORAL TABLET 213808 ALPRAZOLAM Inactive AUGMENTIN 875-125 MG ORAL TABLET 1 tab by mouth twice daily with food AUGMENTIN 875-125 MG ORAL TABLET 262398 AMOXICILLIN-POT CLAVULANATE Inactive ALPRAZOLAM 0.5 MG ORAL TABLET 1 tab every 6hrs as needed ALPRAZOLAM 0.5 MG ORAL TABLET 983641 ALPRAZOLAM Inactive SPIRONOLACTONE 25 MG ORAL TABLET 0.5 tablet by mouth daily 09/09 SPIRONOLACTONE 25 MG ORAL TABLET 943168 SPIRONOLACTONE Inactive ACCU-CHEK KEYONA PLUS w/Device KIT [...] times daily as needed ACCU-CHEK FASTCLIX LANCETS 70654271492 LANCETS Inactive TRAMADOL HCL 50 MG ORAL TABLET 1 tablets every 6 hours as needed for pain TRAMADOL HCL 50 MG ORAL TABLET 789240 TRAMADOL HCL Inactive VENLAFAXINE HCL 75 MG ORAL TABLET 1 po BID VENLAFAXINE HCL 75 MG ORAL TABLET 724346 VENLAFAXINE HCL Inactive HYDROCODONE-ACETAMINOPHEN 5-500 MG ORAL TABLET take one po Q 4-6 hours prn HYDROCODONE-ACETAMINOPHEN 5-500 MG ORAL TABLET HYDROCODONE-ACETAMINOPHEN Inactive LORTAB 5-500 MG ORAL TABLET 1/2 to 1 tablet by mouth every 4 hours as needed for pain LORTAB 5-500 MG ORAL TABLET HYDROCODONE- ACETAMINOPHEN Inactive LAMISIL 250 MG ORAL TABLET 1 po qd LAMISIL 250 MG ORAL TABLET 808950 TERBINAFINE HCL Inactive VENLAFAXINE HCL 37.5 MG ORAL TABLET 1 po BID VENLAFAXINE HCL 37.5 MG ORAL TABLET 831447 VENLAFAXINE HCL Inactive CIPRO 500 MG ORAL TABLET 1 tablet by mouth twice daily CIPRO 500 MG ORAL TABLET 127404 CIPROFLOXACIN HCL Inactive VENLAFAXINE HCL 75 MG ORAL TABLET 1 po BID VENLAFAXINE HCL 75 MG ORAL TABLET 791798 VENLAFAXINE HCL Inactive SIMVASTATIN 40 MG ORAL TABLET Take one by mouth daily SIMVASTATIN 40 MG ORAL TABLET 260602 SIMVASTATIN Inactive OMEPRAZOLE 20 MG ORAL TABLET DELAYED RELEASE 1 PO 30 MIN BEFORE 1ST MEAL 2010 OMEPRAZOLE 20 MG ORAL TABLET DELAYED RELEASE 416511 OMEPRAZOLE Inactive FENOFIBRATE 145 MG ORAL TABLET 1 po qd FENOFIBRATE 145 MG ORAL TABLET 723624 FENOFIBRATE Inactive BACTRIM DS 800-160 MG ORAL TABLET 1 bid x 14 day start 09-28-13 BACTRIM DS 800-160 MG ORAL TABLET 441075 SULFAMETHOXAZOLE- TRIMETHOPRIM Inactive B-12 100 MCG ORAL TABLET Take one by mouth daily B-12 100 MCG ORAL TABLET CYANOCOBALAMIN Inactive GABAPENTIN 100 MG ORAL CAPSULE 1 po bid GABAPENTIN 100 MG ORAL CAPSULE 029586 GABAPENTIN Inactive HYDROCODONE-ACETAMINOPHEN 5-325 MG ORAL TABLET 1 tab by mouth every 6 hours as needed for pain HYDROCODONE-ACETAMINOPHEN 5-325 MG ORAL TABLET 880415 HYDROCODONE-ACETAMINOPHEN Inactive CIPRO 500 MG ORAL TABLET 1 bid x 14 days start 09-28-13 CIPRO 500 MG ORAL TABLET 312057 CIPROFLOXACIN HCL Inactive ALIGN 4 MG ORAL [...] SODIUM 50 MG ORAL TABLET DELAYED RELEASE 781072 DICLOFENAC SODIUM Inactive PREDNISONE 20 MG ORAL TABLET 2 tablets once daily for 2 days, then 1 tablet once daily for 2 days PREDNISONE 20 MG ORAL TABLET 356617 PREDNISONE Inactive TRUEDRAW LANCING DEVICE Test twice a day dx 250.0 TRUEDRAW LANCING DEVICE LANCET DEVICES Inactive TRUERESULT BLOOD GLUCOSE w/Device KIT test blood sugar twice daily dx 250.00 TRUERESULT BLOOD GLUCOSE w/Device KIT BLOOD GLUCOSE MONITORING SUPPL Inactive FLONASE 50 MCG/ACT NASAL SUSPENSION 1 spray each nostril twice daily until bottle empty FLONASE 50 MCG/ACT NASAL SUSPENSION 9661536 FLUTICASONE PROPIONATE Inactive VENTOLIN HFA 108 (90 Base) MCG/ACT INHALATION AEROSOL SOLUTION 1-2 puffs every 4 hours if needed for cough/congestion VENTOLIN HFA 108 (90 Base) MCG/ACT INHALATION AEROSOL SOLUTION ALBUTEROL SULFATE Inactive REQUIP 2 MG ORAL TABLET Take one tablet at bedtime prn REQUIP 2 MG ORAL TABLET 523610 ROPINIROLE HCL Inactive SUPER B COMPLEX/VITAMIN C ORAL TABLET 1 qd SUPER B COMPLEX/VITAMIN C ORAL TABLET 81369073894 B COMPLEX-C Inactive TRUEDRAW LANCING DEVICE test blood sugar twice daily dx: 250.00 TRUEDRAW LANCING DEVICE LANCET DEVICES Inactive TRUETEST TEST IN VITRO STRIP test blood sugar twice daily. DX 250.0 TRUETEST TEST IN VITRO STRIP GLUCOSE BLOOD Inactive CYCLOBENZAPRINE HCL 10 MG ORAL TABLET 1 po TID PRN Muscle Spasm CYCLOBENZAPRINE HCL 10 MG ORAL TABLET 364113 CYCLOBENZAPRINE HCL Inactive DICLOFENAC SODIUM 50 MG ORAL TABLET DELAYED RELEASE 1 po BID PRN Pain DICLOFENAC SODIUM 50 MG ORAL TABLET DELAYED RELEASE 146302 DICLOFENAC SODIUM Inactive DICLOFENAC SODIUM 75 MG ORAL TABLET DELAYED RELEASE 1 po BID PRN Pain DICLOFENAC SODIUM 75 MG ORAL TABLET DELAYED RELEASE 426583 DICLOFENAC SODIUM Inactive NASONEX 50 MCG/ACT NASAL SUSPENSION 2 actuations in each nostril q day 07/15 NASONEX 50 MCG/ACT NASAL SUSPENSION 7561030 MOMETASONE FUROATE Inactive GUAIFENESIN ER 600 MG ORAL TABLET EXTENDED RELEASE 12 HOUR 1 twice a day as needed for congestion GUAIFENESIN ER 600 MG ORAL TABLET EXTENDED RELEASE 12 HOUR GUAIFENESIN Inactive AZITHROMYCIN 250 MG ORAL TABLET 2 po qd x 1, then 1 po qd x 4 AZITHROMYCIN 250 MG ORAL TABLET 361470 AZITHROMYCIN Inactive PROMETHAZINE-CODEINE 6.25-10 MG/5ML ORAL SYRUP 5ml po q6hr PRN Cough PROMETHAZINE-CODEINE 6.25-10 MG/5ML ORAL SYRUP 293765 PROMETHAZINE-CODEINE Inactive TRIAMCINOLONE ACETONIDE 0.1 % EXTERNAL OINTMENT Apply to affected areas TID for up to 2 weeks TRIAMCINOLONE ACETONIDE 0.1 % EXTERNAL OINTMENT 2089012 TRIAMCINOLONE ACETONIDE Inactive PREDNISONE 20 MG ORAL TABLET 2 tabs daily for 3 days, 1 tab daily for 3 days, 1/2 tab daily for 2 days PREDNISONE 20 MG ORAL TABLET 801143 PREDNISONE Inactive PREDNISONE 20 MG ORAL TABLET 2 tabs daily for 3 days, 1 tab daily for 3 days, 1/2 tab daily for 2 days PREDNISONE 20 MG ORAL TABLET 623539 PREDNISONE Inactive BACTRIM DS 800-160 MG ORAL TABLET 1 po BID x 7 days BACTRIM DS 800-160 MG ORAL TABLET 286357 SULFAMETHOXAZOLE-TRIMETHOPRIM Inactive ZITHROMAX 250 MG ORAL TABLET 2 po today, then 1 po q days 2-5 ZITHROMAX 250 MG ORAL TABLET 419578 AZITHROMYCIN Inactive PREDNISONE 20 MG ORAL TABLET 2 po qd x 5 days PREDNISONE 20 MG ORAL TABLET 910674 PREDNISONE Inactive Advance Directives Directive Description Start Date DISCUSSED WITH PATIENT -- NO DECISION MADE Immunizations Vaccine Administration Date Value Standard Description Seasonal influenza vaccine, injectable, containing preservative, for > 3 years old (Afluria, FluLaval, Fluzone, Fluvirin, Fluarix, Agriflu(>=18 yo)) Fluzone (>3 yrs.) [[id number]] Influenza, seasonal, injectable influenza immunization (Flu Vax) has been administered 02/22/2012 influenza virus vaccine, unspecified formulation Seasonal influenza vaccine, injectable, containing preservative, for > 3 years old (Afluria, FluLaval, Fluzone, Fluvirin, Fluarix, Agriflu(>=18 yo)) Fluzone (>3 yrs.) [[id number]] Influenza, seasonal, injectable Vital Signs Date Name [...] ... - Chemistry sodium, serum 141 mmol/L 388-847 3140/01/16 carbon dioxide, venous blood 28.3 mmol/L 21.0-32.0 [...] 6.7 % 4.3-6.0 cholesterol, serum 106 mg/dL 135-504 1475/01/16 triglyceride, serum, fasting 173 mg/dL 30-200 HDL [...] 4.3-6.0 Encounters Code Encounter Date Provider Facility CPT-26789 Level 3 Est. Patient 10:28:05 CDT Tu Landeros MD [facility] CPT-53355 Level 3 Est. Patient 09:11:32 CDT Tu Landeros MD [facility] CPT-16835 Level 3 Est. Patient 10:13:19 TRANSPORTATION SUPERVISOR Lesli Kellogg APRN [facility] CPT-18755 Level 4 Est. Patient 13:42:02 TRANSPORTATION SUPERVISOR Tu Landeros MD [facility] CPT-35031 Level 3 Est. Patient 14:20:36 CDT Tu Landeros MD [facility] CPT-70956 Level 4 Est. Patient 14:28:34 CDT Tu Landeros MD [facility] CPT-67927 Level 3 Est. Patient 13:33:09 CDT Tu Landeros MD [facility] CPT-46980 Level 4 Est. Patient 14:29:21 CDT Tu Landeros MD [facility] CPT-65850 Level 4 Est. Patient 09:08:17 TRANSPORTATION SUPERVISOR Tu Landeros MD [facility] CPT-33506 Level 4 Est. Patient 14:40:19 CDT Tu Landeros MD [facility] CPT-25425 Level 4 Est. Patient 14:06:04 TRANSPORTATION SUPERVISOR Tu Landeros MD [facility] CPT-98687 Level 3 Est. Patient 14:05:18 TRANSPORTATION SUPERVISOR Tu Landeros MD [facility] CPT-79057 Level 3 Est. Patient 10:06:54 TRANSPORTATION SUPERVISOR Miranda Farah APRN [facility] CPT-66609 Level 4 Est. Patient 13:50:18 TRANSPORTATION SUPERVISOR Tu Landeros MD [facility] CPT-73040 Level 3 Est. Patient 10:30:04 CDT Tu Landeros MD [facility] CPT-30456 Level 4 Est. Patient 11:03:38 CDT Tu Landeros MD [facility] CPT-79495 Level 3 Est. Patient 10:20:44 CDT Fab Morales DO [facility] CPT-07567 Level 4 Est. Patient 14:38:57 CDT Tu Landeros MD [facility] CPT-42230 Level 4 Est. Patient 14:27:39 TRANSPORTATION SUPERVISOR Tu Landeros MD [facility] CPT-32022 Level 4 Est. Patient 09:45:25 CDT Tu Landeros MD [facility] CPT-32143 Level 4 Est. Patient 09:05:20 TRANSPORTATION SUPERVISOR Tu Landeros MD [facility] CPT-65785 Level 4 Est. Patient 14:09:06 CDT Tu Landeros MD [facility] CPT-47863 Level 3 Est. Patient 13:36:54 CDT Tu Landeros MD [facility] CPT-96776 Level 3 Est. Patient 08:59:14 CDT Tu Landeros MD [facility] CPT-51057 Level 3 Est. Patient 13:48:35 CDT Fab Morales DO [facility] CPT-84833 Level 4 Est. Patient 10:05:48 CDT Tu Landeros MD [facility] CPT-06229 Level 3 Est. Patient 13:38:42 CDT Marek BANKS [facility] CPT-69675 Level 5 Est. Patient 08:08:39 CDT Piyushrichajanelle Dawsontay FRANCIS [facility] CPT-77512 Level 4 Est. Patient 14:23:38 CDT Tu Landeros MD [facility] CPT-15830 Level 3 Est. Patient 11:44:04 CDT Tu Landeros MD [facility] CPT-43013 Level 3 Est. Patient 11:03:20 TRANSPORTATION SUPERVISOR Tu Landeros MD [facility] CPT-21167 Level 3 Est. Patient 11:03:14 TRANSPORTATION SUPERVISOR Tu Landeros MD [facility] CPT-70895 Level 3 Est. Patient 12:42:49 CDT Tu Landeros MD [facility] CPT-40366 Level 3 Est. Patient 11:52:06 CDT Tu Landeros MD [facility] CPT-35961 Level 3 Est. Patient 13:58:11 CDT Tu Landeros MD [facility] CPT-54565 Level 3 Est. Patient 17:50:07 CDT Fab Morales DO [facility] CPT-74357 Level 3 Est. Patient 12:06:29 CDT Elvira Cervantes MD PhD [facility] CPT-63801 Level 3 Est. Patient 15:50:32 CDT Tu Landeros MD [facility] CPT-96721 Level 4 Est. Patient 16:08:29 CDT Tu Landeros MD [facility] CPT-20713 Level 3 Est. Patient 16:04:19 CDT Tu Landeros MD [facility] CPT-59558 Level 3 Est. Patient 11:22:30 TRANSPORTATION SUPERVISOR Tu Landeros MD [facility] CPT-41156 Level 4 Est. Patient 16:24:02 TRANSPORTATION SUPERVISOR Tu Landeros MD [facility] CPT-81608 Level 3 Est. Patient 17:21:23 TRANSPORTATION SUPERVISOR Tu Landeros MD [facility] Procedures Code Procedure Name Date Entry Date Standard Description CPT-06072 Shoulder, right, comp min 2V - XRAY USE ONLY 13:50:22 CDT CPT-G0009 Administration of Pneumococcal Vaccine 15:08:26 CDT CPT-83903 Prevnar 13 Intramuscular Suspension 15:08:26 CDT 10/08 CPT-G0439 [facility] Annual Wellness Exam 14:29:22 CDT CPT-47290 Venipuncture Draw Fee 13:15:35 CDT CPT-10257 Magnesium - LAB USE ONLY 11:14:20 TRANSPORTATION SUPERVISOR CPT-82230 Lipid - LAB USE ONLY 11:14:20 TRANSPORTATION SUPERVISOR CPT-41003 HGBA1C - LAB USE ONLY 11:14:20 TRANSPORTATION SUPERVISOR CPT-49188 CMP - LAB USE ONLY 11:14:19 TRANSPORTATION SUPERVISOR CPT-29474 CBC - LAB USE ONLY 11:14:19 TRANSPORTATION SUPERVISOR CPT-67645 Venipuncture Draw Fee 11:14:18 TRANSPORTATION SUPERVISOR CPT-77489 First Vx - Ix admin for Medicare patients 16:46:52 CDT CPT-55222 Fluzone Preservative Free Intramuscular Suspension 16:46 :51 CDT CPT-42207 CBC - LAB USE ONLY 17:14:46 CDT CPT-98124 HGBA1C - LAB USE ONLY 17:14:46 CDT CPT-82958 Venipuncture Draw Fee 17:14:46 CDT CPT-G0438 Initial Annual Wellness Exam 14:13:04 CDT CPT-50003 Breathing Tx 10:06:54 TRANSPORTATION SUPERVISOR CPT-41207 Postop F/U Visit 10:02:45 CDT CPT-LR Lesion Removal 09:02:56 CDT CPT-JTINJ Asp/Joint Injection 15:51:27 TRANSPORTATION SUPERVISOR CPT-OV Office Visit 15:52:02 TRANSPORTATION SUPERVISOR CPT-OV Office Visit 15:45:11 CDT CPT-000 Give Zostavax 14:09:06 CDT CPT-18550 Administration single or combination vaccine inc oral 15 :19:04 CDT CPT-29073 Zoster Vaccine (Zostavax) 15:19:04 CDT CPT-06983 Administration single or combination vaccine inc oral 20 :51:03 CDT CPT-19537 Influenza split virus > age 3 20:51:03 CDT CPT-00500 No Charge Offi Visit 14:52:03 CDT CPT-OV Office Visit 14:57:43 CDT CPT-OV Office Visit 15:22:32 CDT CPT-15877 Administration single or combination vaccine inc oral 11 :33:15 CDT CPT-69838 Influenza split virus > age 3 11:33:15 CDT
--- OUTSIDE RECORDS SUMMARY | 2018-04-25 12:40 | XMS REPORT | Clinical Summary ---
Author Author Admin, SACHI Organization [employer] Address Unknown Phone Unavailable Allergies, Adverse Reactions, [...] Landeros MD Body Mass Index 50.0-59.9, adult HEALTH SCREENING ICD-V70.0 Inactive Elvira Cervantes MD PhD 2011 INSOMNIA, PERSISTENT ICD-307.42 Inactive Tu Landeros MD GASTROENTERITIS ICD-558.9 Inactive Tu Landeros MD DIZZINESS ICD-780.4 Inactive Tu Landeros MD POSTMENOPAUSAL BLEEDING ICD-627.1 Inactive Elvira Cervantes MD PhD LEG CRAMPS, NOCTURNAL ICD-729.82 Inactive Tu Landeros [...] KNEE PAIN ICD-719.46 Inactive Tu Landeros MD BENIGN PAROXYSMAL POSITIONAL VERTIGO ICD-386.11 Inactive Tu Landeros MD LOCALIZED SUPERFICIAL SWELLING [...] infection, viral ICD-465.9 Inactive Tu Landeros MD ONYCHOMYCOSIS ICD-110.1 Inactive Tu Landeros MD Open wound of abdominal wall, anterior, complicated ICD-879.3 Inactive Tu Landeros MD Medication List Medication Instructions Start Date Stop Date Generic Name NDC Status Provider Patient Instruction PROMETHAZINE-CODEINE 6.25-10 MG/5ML ORAL SYRUP 5ml po q6hr PRN Cough PROMETHAZINE-CODEINE 78953408688 No Longer Active Tu Landeros MD Active AZITHROMYCIN 250 MG ORAL TABLET 2 po qd x 1, then 1 po qd x 4 AZITHROMYCIN 42724625253 No Longer Active Tu Landeros MD Active GUAIFENESIN ER 600 MG ORAL TABLET EXTENDED RELEASE 12 HOUR 1 twice a day as needed for congestion GUAIFENESIN 06041442095 No Longer Active Tu Landeros MD Active PREDNISONE 20 MG ORAL TABLET 2 po qd x 5 days PREDNISONE 15656327688 No Longer Active Tu Landeros MD Active FLUTICASONE PROPIONATE 50 MCG/ACT NASAL SUSPENSION 2 sprays/nostril qd PRN Congestion/Allergies FLUTICASONE PROPIONATE 15843440149 Active Tu Landeros MD Active NASONEX 50 MCG/ACT NASAL SUSPENSION 2 actuations in each nostril q day 07/15 MOMETASONE FUROATE 56538850787 No Longer Active Tu Landeros MD Active MAGNESIUM OXIDE 400 MG ORAL TABLET 1 po BID MAGNESIUM OXIDE 66886735303 Active Tu Landeros MD Active SIMVASTATIN 20 MG ORAL TABLET 0.5 po qHS SIMVASTATIN 77550326834 Active Tu Landeros MD Active DICLOFENAC SODIUM 75 MG ORAL TABLET DELAYED RELEASE 1 po BID PRN Pain DICLOFENAC SODIUM 13241420740 No Longer Active Tu Landeros MD Active GABAPENTIN 100 MG ORAL CAPSULE 1 po TID GABAPENTIN 96211424916 Active Tu Landeros MD Active DICLOFENAC SODIUM 50 MG ORAL TABLET DELAYED RELEASE 1 po BID PRN Pain DICLOFENAC SODIUM 88749595325 No Longer Active Tu Landeros MD Active CYCLOBENZAPRINE HCL 10 MG ORAL TABLET 1 po TID PRN Muscle Spasm CYCLOBENZAPRINE HCL 15001503443 No Longer Active Tu Landeros MD Active INVOKANA 100 MG ORAL TABLET 1 po qd CANAGLIFLOZIN 05743661104 Active Tu Landeros MD Active GLIPIZIDE 5 MG ORAL TABLET 1 po qd GLIPIZIDE 71374569594 No Longer Active Tu Landeros MD Active VENLAFAXINE HCL 75 MG ORAL TABLET 1 po BID VENLAFAXINE HCL 24328464213 Active Tu Landeros MD Active GLIMEPIRIDE 1 MG ORAL TABLET 1 po qd GLIMEPIRIDE 72189220186 No Longer Active Tu Landeros MD Active TRUE METRIX BLOOD GLUCOSE TEST IN VITRO STRIP Test blood sugar BID Dx: E11.9 GLUCOSE BLOOD 17031257762 Active Tu Landeros MD Active TRUE METRIX AIR GLUCOSE METER w/Device KIT Test blood glucose BID Dx: E11.9 BLOOD GLUCOSE MONITORING SUPPL 25513908961 Active Tu Landeros MD Active TRUETEST TEST IN VITRO STRIP test blood sugar twice daily. DX 250.0 GLUCOSE BLOOD 40307073589 No Longer Active Mirna Stanley LPN Active TRUEDRAW LANCING DEVICE test blood sugar twice daily dx: 250.00 LANCET DEVICES 63229871940 No Longer Active Mirna Stanley LPN Active ENALAPRIL MALEATE 20 MG ORAL TABLET 2 po qd ENALAPRIL MALEATE 00814435347 Active Tu Landeros MD Active SUPER B COMPLEX/VITAMIN C ORAL TABLET 1 qd B COMPLEX- C 09338271705 No Longer Active Tu Landeros MD Active ASPIRIN EC 81 MG ORAL TABLET DELAYED RELEASE 1 po qd ASPIRIN 54317169649 Active Tu Landeros MD Active GLUCOSAMINE 500 MG TABS 2 po qd GLUCOSAMINE Active Tu Landeros MD Active FISH OIL 1000 MG ORAL CAPSULE 1 po qd OMEGA-3 FATTY ACIDS 78290318632 Active Tu Landeros MD Active METFORMIN HCL 1000 MG ORAL TABLET 1 po BID METFORMIN HCL 91265763362 Active Tu Landeros MD Active KLOR-CON 10 10 MEQ ORAL TABLET EXTENDED RELEASE 2 po qd POTASSIUM CHLORIDE 77778332805 Active Tu Landeros MD Active FUROSEMIDE 40 MG ORAL TABLET 1 po qd FUROSEMIDE 29304892416 Active Tu Landeros MD Active REQUIP 2 MG ORAL TABLET 1 po qHS PRN Restless legs ROPINIROLE HCL 56531305876 Active Tu Landeros MD Active REQUIP 2 MG ORAL TABLET Take one tablet at bedtime prn ROPINIROLE HCL 34850173659 No Longer Active Tu Landeros MD Active VENTOLIN HFA 108 (90 Base) MCG/ACT INHALATION AEROSOL SOLUTION 1-2 puffs every 4 hours if needed for cough/congestion ALBUTEROL SULFATE 52041966913 No Longer Active Ambika Aden APRN Active ZITHROMAX 250 MG ORAL TABLET 2 po today, then 1 po q days 2-5 AZITHROMYCIN 45323273447 No Longer Active Miranda Farah APRN Active FLONASE 50 MCG/ACT NASAL SUSPENSION 1 spray each nostril twice daily until bottle empty FLUTICASONE PROPIONATE 57617242731 No Longer Active Tu Landeros MD Active COLACE 100 MG ORAL CAPSULE 1 po BID PRN Constipation DOCUSATE SODIUM 57041135158 Active Tu Landeros MD Active TRUERESULT BLOOD GLUCOSE w/Device KIT test blood sugar twice daily dx 250.00 BLOOD GLUCOSE MONITORING SUPPL 47661948279 No Longer Active Tu Landeros MD Active TRUEDRAW LANCING DEVICE Test twice a day dx 250.0 LANCET DEVICES 61328895806 No Longer Active Tu Landeros MD Active PREDNISONE 20 MG ORAL TABLET 2 tablets once daily for 2 days, then 1 tablet once daily for 2 days PREDNISONE 09155936155 No Longer Active Tu Landeros MD Active DICLOFENAC SODIUM 50 MG ORAL TABLET DELAYED RELEASE 1 tablet by mouth three times a day as needed DICLOFENAC SODIUM 30525373239 No Longer Active Fab Morales DO Active EMBRACE BLOOD GLUCOSE TEST IN VITRO STRIP test blood sugar twice daily DX 250.0 GLUCOSE BLOOD 88102210738 No Longer Active Tu Landeros MD Active TRUETEST TEST IN VITRO STRIP test blood sugar three times daily dx: 250.00 GLUCOSE BLOOD 57515648319 No Longer Active Suze VOGEL Active TRUERESULT BLOOD GLUCOSE w/Device KIT use to test blood sugar tid dx: 250.00 BLOOD GLUCOSE MONITORING SUPPL 51735595500 No Longer Active Suze VOGEL Active ALIGN 4 MG ORAL CAPSULE 1 tid PROBIOTIC PRODUCT 51192963096 No Longer Active Shaun Sy MD Active CIPRO 500 MG ORAL TABLET 1 bid x 14 days start 09-28-13 CIPROFLOXACIN HCL 34112691372 No Longer Active Shaun Sy MD Active TRAMADOL HCL 50 MG ORAL TABLET 1-2 tablets every 6 hours as needed for pain TRAMADOL HCL 15140064484 Active Tu Landeros MD Active HYDROCODONE-ACETAMINOPHEN 5-325 MG ORAL TABLET 1 tab by mouth every 6 hours as needed for pain HYDROCODONE-ACETAMINOPHEN 70826433714 No Longer Active Tu Landeros MD Active OMEPRAZOLE 20 MG ORAL CAPSULE DELAYED RELEASE 1 po q a.m. OMEPRAZOLE 28852583632 Active Tu Landeros MD Active GABAPENTIN 100 MG ORAL CAPSULE 1 po bid GABAPENTIN 77834659649 No Longer Active Tu Landeros MD Active B-12 100 MCG ORAL TABLET Take one by mouth daily CYANOCOBALAMIN 47009631102 No Longer Active Tu Landeros MD Active BACTRIM DS 800-160 MG ORAL TABLET 1 bid x 14 day start 09-28-13 SULFAMETHOXAZOLE-TRIMETHOPRIM 86744812864 No Longer Active Tu Landeros MD Active CARVEDILOL 12.5 MG ORAL TABLET 1 po BID CARVEDILOL 58799308532 Active Tu Landeros MD Active TRILIPIX 135 MG ORAL CAPSULE DELAYED RELEASE 1 q hs CHOLINE FENOFIBRATE 62231751145 Active Tu Landeros MD Active FENOFIBRATE 145 MG ORAL TABLET 1 po qd FENOFIBRATE 30608236648 No Longer Active JASPREET Perez Active OMEPRAZOLE 20 MG ORAL TABLET DELAYED RELEASE 1 PO 30 MIN BEFORE 1ST MEAL 2010 OMEPRAZOLE 12890354711 No Longer Active JASPREET Perez Active SIMVASTATIN 40 MG ORAL TABLET Take one by mouth daily SIMVASTATIN 19858513732 No Longer Active JASPREET Perez Active VENLAFAXINE HCL 75 MG ORAL TABLET 1 po BID VENLAFAXINE HCL 07859195209 No Longer Active JASPREET Perez Active CIPRO 500 MG ORAL TABLET 1 tablet by mouth twice daily CIPROFLOXACIN HCL 17150635696 No Longer Active Tu Landeros MD Active VENLAFAXINE HCL 37.5 MG ORAL TABLET 1 po BID VENLAFAXINE HCL 62702208439 No Longer Active Suze NUNOA Active LAMISIL 250 MG ORAL TABLET 1 po qd TERBINAFINE HCL 36986616134 No Longer Active Tu Landeros MD Active LORTAB 5-500 MG ORAL TABLET 1/2 to 1 tablet by mouth every 4 hours as needed for pain HYDROCODONE-ACETAMINOPHEN 04430277860 No Longer Active Tu Landeros MD Active HYDROCODONE-ACETAMINOPHEN 5-500 MG ORAL TABLET take one po Q 4-6 hours prn HYDROCODONE-ACETAMINOPHEN 67177674194 No Longer Active Tu Landeros MD Active BACTRIM DS 800-160 MG ORAL TABLET 1 po BID x 7 days SULFAMETHOXAZOLE-TRIMETHOPRIM 65180913754 No Longer Active Tu Landeros MD Active VENLAFAXINE HCL 75 MG ORAL TABLET 1 po BID VENLAFAXINE HCL 78960021931 No Longer Active Elvira Cervantes MD PhD Active TRAMADOL HCL 50 MG ORAL TABLET 1 tablets every 6 hours as needed for pain TRAMADOL HCL 68236144910 No Longer Active Tu Landeros MD Active ACCU-CHEK FASTCLIX LANCETS Use to check bloodsugar three times daily as needed LANCETS 99016864227 No Longer Active Tu Landeros MD Active ACCU-CHEK KEYONA PLUS IN VITRO STRIP Use for testing bloodsugars three times daily as needed GLUCOSE BLOOD 07826689209 No Longer Active Tu Landeros MD Active ACCU-CHEK KEYONA PLUS w/Device KIT Use for testing bloodsugars three times daily as needed BLOOD GLUCOSE MONITORING SUPPL 17848919085 No Longer Active Tu Landeros MD Active SPIRONOLACTONE 25 MG ORAL TABLET 0.5 tablet by mouth daily 09/09 SPIRONOLACTONE 08791909297 No Longer Active Tu Landeros MD Active ALPRAZOLAM 0.5 MG ORAL TABLET 1 tab every 6hrs as needed ALPRAZOLAM 43178940421 No Longer Active Tu Landeros MD Active AUGMENTIN 875-125 MG ORAL TABLET 1 tab by mouth twice daily with food AMOXICILLIN-POT CLAVULANATE 52821020825 No Longer Active Tu Landeros MD Active PREDNISONE 20 MG ORAL TABLET 2 tabs daily for 3 days, 1 tab daily for 3 days, 1/2 tab daily for 2 days PREDNISONE 31275497172 No Longer Active Tu Landeros MD Active XANAX 0.5 MG ORAL TABLET 1 tablet every 6 hrs prn ALPRAZOLAM 08967088261 No Longer Active Tu Landeros MD Active PREDNISONE 20 MG ORAL TABLET 2 tabs daily for 3 days, 1 tab daily for 3 days, 1/2 tab daily for 2 days PREDNISONE 03805496378 No Longer Active Tu Landeros MD Active TRIAMCINOLONE ACETONIDE 0.1 % EXTERNAL OINTMENT Apply to affected areas TID for up to 2 weeks TRIAMCINOLONE ACETONIDE 87710832648 No Longer Active Tu Landeros MD Active LORTAB 5-500 MG ORAL TABLET 1/2 to 1 tablet by mouth every 4 hours as needed for pain HYDROCODONE-ACETAMINOPHEN 42613336562 No Longer Active Tu Landeros MD Active MULTIVITAMINS TABS Take one by mouth daily MULTIPLE VITAMIN 74997758361 No Longer Active Tu Landeros MD Active MELATONIN 5 MG ORAL TABLET Take one by mouth daily MELATONIN 39321368993 No Longer Active Tu Landeros MD Active SOMA 350 MG ORAL TABLET 1 po q 6 hours prn spasm CARISOPRODOL 84992142348 No Longer Active Tu Landeros MD Active MECLIZINE HCL 25 MG ORAL TABLET CHEWABLE 1 four times a day as needed for dizziness MECLIZINE HCL 83075430670 No Longer Active Fab Morales DO Active ANGEL BREEZE 2 TEST IN VITRO DISK test tid prn GLUCOSE BLOOD 57294771440 No Longer Active Negra Scott RN Active REGLAN 10 MG ORAL TABLET 1 po TID PRN Nausea METOCLOPRAMIDE HCL 25675837860 No Longer Active Tu Landeros MD Active METFORMIN HCL 500 MG ORAL TABLET 1 PO BID METFORMIN HCL 64083345397 No Longer Active Tu Landeros MD Active AMBIEN 10 MG ORAL TABLET 1 tab by mouth at bedtime as needed for sleep 06/10 ZOLPIDEM TARTRATE 13051790394 No Longer Active Tu Landeros MD Active FLUOXETINE HCL 40 MG ORAL CAPSULE 1 po q day FLUOXETINE HCL 17949085614 No Longer Active Mayra Terry Active TRILIPIX 135 MG ORAL CAPSULE DELAYED RELEASE 1 po qd CHOLINE FENOFIBRATE 69691621821 No Longer Active Tu Landeros MD Active AMBIEN 10 MG ORAL TABLET 1 tab by mouth at bedtime as needed for sleep 06/10 AMBIEN 10 MG ORAL TABLET 096517 ZOLPIDEM TARTRATE Inactive METFORMIN HCL 500 MG ORAL TABLET 1 PO BID METFORMIN HCL 500 MG ORAL TABLET 887835 METFORMIN HCL Inactive REGLAN 10 MG ORAL TABLET 1 po TID PRN Nausea REGLAN 10 MG ORAL TABLET 026600 METOCLOPRAMIDE HCL Inactive MECLIZINE HCL 25 MG ORAL TABLET CHEWABLE 1 four times a day as needed for dizziness MECLIZINE HCL 25 MG ORAL TABLET CHEWABLE 138236 MECLIZINE HCL Inactive SOMA 350 MG ORAL TABLET 1 po q 6 hours prn spasm SOMA 350 MG ORAL TABLET 726488 CARISOPRODOL Inactive MELATONIN 5 MG ORAL TABLET Take one by mouth daily MELATONIN 5 MG ORAL TABLET 370672 MELATONIN Inactive MULTIVITAMINS TABS Take one by mouth daily MULTIVITAMINS TABS MULTIPLE VITAMIN Inactive LORTAB 5-500 MG ORAL TABLET 1/2 to 1 tablet by mouth every 4 hours as needed for pain LORTAB 5-500 MG ORAL TABLET HYDROCODONE- ACETAMINOPHEN Inactive XANAX 0.5 MG ORAL TABLET 1 tablet every 6 hrs prn XANAX 0.5 MG ORAL TABLET 390041 ALPRAZOLAM Inactive AUGMENTIN 875-125 MG ORAL TABLET 1 tab by mouth twice daily with food AUGMENTIN 875-125 MG ORAL TABLET 577055 AMOXICILLIN-POT CLAVULANATE Inactive ALPRAZOLAM 0.5 MG ORAL TABLET 1 tab every 6hrs as needed ALPRAZOLAM 0.5 MG ORAL TABLET 462636 ALPRAZOLAM Inactive SPIRONOLACTONE 25 MG ORAL TABLET 0.5 tablet by mouth daily 09/09 SPIRONOLACTONE 25 MG ORAL TABLET 099977 SPIRONOLACTONE Inactive ACCU-CHEK KEYONA PLUS w/Device KIT [...] times daily as needed ACCU-CHEK FASTCLIX LANCETS 76425895738 LANCETS Inactive TRAMADOL HCL 50 MG ORAL TABLET 1 tablets every 6 hours as needed for pain TRAMADOL HCL 50 MG ORAL TABLET 201935 TRAMADOL HCL Inactive VENLAFAXINE HCL 75 MG ORAL TABLET 1 po BID VENLAFAXINE HCL 75 MG ORAL TABLET 917651 VENLAFAXINE HCL Inactive HYDROCODONE-ACETAMINOPHEN 5-500 MG ORAL TABLET take one po Q 4-6 hours prn HYDROCODONE-ACETAMINOPHEN 5-500 MG ORAL TABLET HYDROCODONE-ACETAMINOPHEN Inactive LORTAB 5-500 MG ORAL TABLET 1/2 to 1 tablet by mouth every 4 hours as needed for pain LORTAB 5-500 MG ORAL TABLET HYDROCODONE- ACETAMINOPHEN Inactive LAMISIL 250 MG ORAL TABLET 1 po qd LAMISIL 250 MG ORAL TABLET 501328 TERBINAFINE HCL Inactive VENLAFAXINE HCL 37.5 MG ORAL TABLET 1 po BID VENLAFAXINE HCL 37.5 MG ORAL TABLET 539573 VENLAFAXINE HCL Inactive CIPRO 500 MG ORAL TABLET 1 tablet by mouth twice daily CIPRO 500 MG ORAL TABLET 548419 CIPROFLOXACIN HCL Inactive VENLAFAXINE HCL 75 MG ORAL TABLET 1 po BID VENLAFAXINE HCL 75 MG ORAL TABLET 885918 VENLAFAXINE HCL Inactive SIMVASTATIN 40 MG ORAL TABLET Take one by mouth daily SIMVASTATIN 40 MG ORAL TABLET 469277 SIMVASTATIN Inactive OMEPRAZOLE 20 MG ORAL TABLET DELAYED RELEASE 1 PO 30 MIN BEFORE 1ST MEAL 2010 OMEPRAZOLE 20 MG ORAL TABLET DELAYED RELEASE 219216 OMEPRAZOLE Inactive FENOFIBRATE 145 MG ORAL TABLET 1 po qd FENOFIBRATE 145 MG ORAL TABLET 631887 FENOFIBRATE Inactive BACTRIM DS 800-160 MG ORAL TABLET 1 bid x 14 day start 09-28-13 BACTRIM DS 800-160 MG ORAL TABLET 895840 SULFAMETHOXAZOLE- TRIMETHOPRIM Inactive B-12 100 MCG ORAL TABLET Take one by mouth daily B-12 100 MCG ORAL TABLET CYANOCOBALAMIN Inactive GABAPENTIN 100 MG ORAL CAPSULE 1 po bid GABAPENTIN 100 MG ORAL CAPSULE 185336 GABAPENTIN Inactive HYDROCODONE-ACETAMINOPHEN 5-325 MG ORAL TABLET 1 tab by mouth every 6 hours as needed for pain HYDROCODONE-ACETAMINOPHEN 5-325 MG ORAL TABLET 345691 HYDROCODONE-ACETAMINOPHEN Inactive CIPRO 500 MG ORAL TABLET 1 bid x 14 days start 09-28-13 CIPRO 500 MG ORAL TABLET 414989 CIPROFLOXACIN HCL Inactive ALIGN 4 MG ORAL [...] SODIUM 50 MG ORAL TABLET DELAYED RELEASE 574327 DICLOFENAC SODIUM Inactive PREDNISONE 20 MG ORAL TABLET 2 tablets once daily for 2 days, then 1 tablet once daily for 2 days PREDNISONE 20 MG ORAL TABLET 039275 PREDNISONE Inactive TRUEDRAW LANCING DEVICE Test twice a day dx 250.0 TRUEDRAW LANCING DEVICE LANCET DEVICES Inactive TRUERESULT BLOOD GLUCOSE w/Device KIT test blood sugar twice daily dx 250.00 TRUERESULT BLOOD GLUCOSE w/Device KIT BLOOD GLUCOSE MONITORING SUPPL Inactive FLONASE 50 MCG/ACT NASAL SUSPENSION 1 spray each nostril twice daily until bottle empty FLONASE 50 MCG/ACT NASAL SUSPENSION 6430815 FLUTICASONE PROPIONATE Inactive VENTOLIN HFA 108 (90 Base) MCG/ACT INHALATION AEROSOL SOLUTION 1-2 puffs every 4 hours if needed for cough/congestion VENTOLIN HFA 108 (90 Base) MCG/ACT INHALATION AEROSOL SOLUTION ALBUTEROL SULFATE Inactive REQUIP 2 MG ORAL TABLET Take one tablet at bedtime prn REQUIP 2 MG ORAL TABLET 227454 ROPINIROLE HCL Inactive SUPER B COMPLEX/VITAMIN C ORAL TABLET 1 qd SUPER B COMPLEX/VITAMIN C ORAL TABLET 47233750078 B COMPLEX-C Inactive TRUEDRAW LANCING DEVICE test blood sugar twice daily dx: 250.00 TRUEDRAW LANCING DEVICE LANCET DEVICES Inactive TRUETEST TEST IN VITRO STRIP test blood sugar twice daily. DX 250.0 TRUETEST TEST IN VITRO STRIP GLUCOSE BLOOD Inactive CYCLOBENZAPRINE HCL 10 MG ORAL TABLET 1 po TID PRN Muscle Spasm CYCLOBENZAPRINE HCL 10 MG ORAL TABLET 037276 CYCLOBENZAPRINE HCL Inactive DICLOFENAC SODIUM 50 MG ORAL TABLET DELAYED RELEASE 1 po BID PRN Pain DICLOFENAC SODIUM 50 MG ORAL TABLET DELAYED RELEASE 776105 DICLOFENAC SODIUM Inactive DICLOFENAC SODIUM 75 MG ORAL TABLET DELAYED RELEASE 1 po BID PRN Pain DICLOFENAC SODIUM 75 MG ORAL TABLET DELAYED RELEASE 278252 DICLOFENAC SODIUM Inactive NASONEX 50 MCG/ACT NASAL SUSPENSION 2 actuations in each nostril q day 07/15 NASONEX 50 MCG/ACT NASAL SUSPENSION 0015324 MOMETASONE FUROATE Inactive GUAIFENESIN ER 600 MG ORAL TABLET EXTENDED RELEASE 12 HOUR 1 twice a day as needed for congestion GUAIFENESIN ER 600 MG ORAL TABLET EXTENDED RELEASE 12 HOUR GUAIFENESIN Inactive AZITHROMYCIN 250 MG ORAL TABLET 2 po qd x 1, then 1 po qd x 4 AZITHROMYCIN 250 MG ORAL TABLET 779153 AZITHROMYCIN Inactive PROMETHAZINE-CODEINE 6.25-10 MG/5ML ORAL SYRUP 5ml po q6hr PRN Cough PROMETHAZINE-CODEINE 6.25-10 MG/5ML ORAL SYRUP 441620 PROMETHAZINE-CODEINE Inactive TRIAMCINOLONE ACETONIDE 0.1 % EXTERNAL OINTMENT Apply to affected areas TID for up to 2 weeks TRIAMCINOLONE ACETONIDE 0.1 % EXTERNAL OINTMENT 8898323 TRIAMCINOLONE ACETONIDE Inactive PREDNISONE 20 MG ORAL TABLET 2 tabs daily for 3 days, 1 tab daily for 3 days, 1/2 tab daily for 2 days PREDNISONE 20 MG ORAL TABLET 070017 PREDNISONE Inactive PREDNISONE 20 MG ORAL TABLET 2 tabs daily for 3 days, 1 tab daily for 3 days, 1/2 tab daily for 2 days PREDNISONE 20 MG ORAL TABLET 960486 PREDNISONE Inactive BACTRIM DS 800-160 MG ORAL TABLET 1 po BID x 7 days BACTRIM DS 800-160 MG ORAL TABLET 369026 SULFAMETHOXAZOLE-TRIMETHOPRIM Inactive ZITHROMAX 250 MG ORAL TABLET 2 po today, then 1 po q days 2-5 ZITHROMAX 250 MG ORAL TABLET 581022 AZITHROMYCIN Inactive PREDNISONE 20 MG ORAL TABLET 2 po qd x 5 days PREDNISONE 20 MG ORAL TABLET 756600 PREDNISONE Inactive Advance Directives Directive Description Start Date DISCUSSED WITH PATIENT -- NO DECISION MADE Immunizations Vaccine Administration Date Value Standard Description Seasonal influenza vaccine, injectable, containing preservative, for > 3 years old (Afluria, FluLaval, Fluzone, Fluvirin, Fluarix, Agriflu(>=18 yo)) Fluzone (>3 yrs.) [[id number]] Influenza, seasonal, injectable influenza immunization (Flu Vax) has been administered 02/22/2012 influenza virus vaccine, unspecified formulation Seasonal influenza vaccine, injectable, containing preservative, for > 3 years old (Afluria, FluLaval, Fluzone, Fluvirin, Fluarix, Agriflu(>=18 yo)) Fluzone (>3 yrs.) [[id number]] Influenza, seasonal, injectable Vital Signs Date Name Value Unit Range Description blood pressure, diastolic 62 mm[Hg] BP ac [...] temperature weight E&M 308.3 [lb_av] Weight Measured Diagnostic Results Date Name Value Unit Range Description Lab Report: CBC, Comp. Metabolic Panel, HGBA1C, Lipid Panel, Magnesium, ... - Chemistry sodium, serum 141 mmol/L 382-233 1843/01/16 carbon dioxide, venous blood 28.3 mmol/L 21.0-32.0 [...] 6.7 % 4.3-6.0 cholesterol, serum 106 mg/dL 400-514 4946/01/16 triglyceride, serum, fasting 173 mg/dL 30-200 HDL [...] 4.3-6.0 Encounters Code Encounter Date Provider Facility CPT-92510 Level 3 Est. Patient 09:11:32 CDT Tu Landeros MD [facility] CPT-23022 Level 3 Est. Patient 10:13:19 CDC ASSOCIATE Lesli Kellogg [facility] CPT-34128 Level 4 Est. Patient 13:42:02 CDC ASSOCIATE Tu Landeros MD [facility] CPT-73576 Level 3 Est. Patient 14:20:36 CDT Tu Landeros MD [facility] CPT-31726 Level 4 Est. Patient 14:28:34 CDT Tu Landeros MD [facility] CPT-61835 Level 3 Est. Patient 13:33:09 CDT Tu Landeros MD [facility] CPT-77819 Level 4 Est. Patient 14:29:21 CDT Tu Landeros MD [facility] CPT-37031 Level 4 Est. Patient 09:08:17 CDC ASSOCIATE Tu Landeros MD [facility] CPT-94702 Level 4 Est. Patient 14:40:19 CDT Tu Landeros MD [facility] CPT-43402 Level 4 Est. Patient 14:06:04 CDC ASSOCIATE Tu Landeros MD [facility] CPT-93279 Level 3 Est. Patient 14:05:18 CDC ASSOCIATE Tu Landeros MD [facility] CPT-68182 Level 3 Est. Patient 10:06:54 CDC ASSOCIATE Miranda Farah MASTER CONTROL ENGINEER [facility] CPT-51953 Level 4 Est. Patient 13:50:18 CDC ASSOCIATE Tu Landeros MD [facility] CPT-24455 Level 3 Est. Patient 10:30:04 CDT Tu Landeros MD [facility] CPT-77537 Level 4 Est. Patient 11:03:38 CDT Tu Landeros MD [facility] CPT-83729 Level 3 Est. Patient 10:20:44 CDT Fab Morales DO [facility] CPT-16385 Level 4 Est. Patient 14:38:57 CDT Tu Landeros MD [facility] CPT-17431 Level 4 Est. Patient 14:27:39 CDC ASSOCIATE Tu Landeros MD [facility] CPT-44500 Level 4 Est. Patient 09:45:25 CDT Tu Landeros MD [facility] CPT-17443 Level 4 Est. Patient 09:05:20 CDC ASSOCIATE Tu Landeros MD [facility] CPT-15070 Level 4 Est. Patient 14:09:06 CDT Tu Landeros MD [facility] CPT-62247 Level 3 Est. Patient 13:36:54 CDT Tu Landeros MD [facility] CPT-44712 Level 3 Est. Patient 08:59:14 CDT Tu Landeros MD [facility] CPT-98638 Level 3 Est. Patient 13:48:35 CDT Fab Morales DO [facility] CPT-63125 Level 4 Est. Patient 10:05:48 CDT Tu Landeros MD [facility] CPT-37098 Level 3 Est. Patient 13:38:[address] [facility] CPT-75298 Level 5 Est. Patient 08:08:[address] [facility] CPT-65826 Level 4 Est. Patient 14:23:38 CDT Tu Landeros MD [facility] CPT-08363 Level 3 Est. Patient 11:44:04 CDT Tu Landeros MD [facility] CPT-49610 Level 3 Est. Patient 11:03:20 CDC ASSOCIATE Tu Landeros MD [facility] CPT-00098 Level 3 Est. Patient 11:03:14 CDC ASSOCIATE Tu Landeros MD [facility] CPT-46890 Level 3 Est. Patient 12:42:49 CDT Tu Landeros MD [facility] CPT-72132 Level 3 Est. Patient 11:52:06 CDT Tu Landeros MD [facility] CPT-22812 Level 3 Est. Patient 13:58:11 CDT Tu Landeros MD [facility] CPT-53704 Level 3 Est. Patient 17:50:07 CDT Fab Morales DO [facility] CPT-00825 Level 3 Est. Patient 12:06:29 CDT Elvira Cervantes MD, PhD [facility] CPT-62593 Level 3 Est. Patient 15:50:32 CDT Tu Landeros MD [facility] CPT-05413 Level 4 Est. Patient 16:08:29 CDT Tu Landeros MD [facility] CPT-73864 Level 3 Est. Patient 16:04:19 CDT Tu Landeros MD [facility] CPT-62936 Level 3 Est. Patient 11:22:30 CDC ASSOCIATE Tu Landeros MD [facility] CPT-44941 Level 4 Est. Patient 16:24:02 CDC ASSOCIATE Tu Landeros MD [facility] CPT-41218 Level 3 Est. Patient 17:21:23 CDC ASSOCIATE Tu Landeros MD [facility] Procedures Code Procedure Name Date Entry Date Standard Description CPT-25738 Shoulder, right, comp min 2V - XRAY USE ONLY 13:50:22 CDT CPT-G0009 Administration of Pneumococcal Vaccine 15:08:26 CDT CPT-61127 Prevnar 13 Intramuscular Suspension 15:08:26 CDT 10/08 CPT-G0439 Subsequent Annual Wellness Exam 14:29:22 CDT CPT-46462 Venipuncture Draw Fee 13:15:35 CDT CPT-75752 Magnesium - LAB USE ONLY 11:14:20 CDC ASSOCIATE CPT-28427 Lipid - LAB USE ONLY 11:14:20 CDC ASSOCIATE CPT-06482 HGBA1C - LAB USE ONLY 11:14:20 CDC ASSOCIATE CPT-39201 CMP - LAB USE ONLY 11:14:19 CDC ASSOCIATE CPT-17808 CBC - LAB USE ONLY 11:14:19 CDC ASSOCIATE CPT-04199 Venipuncture Draw Fee 11:14:18 CDC ASSOCIATE CPT-63143 First Vx - Ix admin for Medicare patients 16:46:52 CDT CPT-35646 Fluzone Preservative Free Intramuscular Suspension 16:46 :51 CDT CPT-28251 CBC - LAB USE ONLY 17:14:46 CDT CPT-35416 HGBA1C - LAB USE ONLY 17:14:46 CDT CPT-98158 Venipuncture Draw Fee 17:14:46 CDT CPT-G0438 Initial Annual Wellness Exam 14:13:04 CDT CPT-85356 Breathing Tx 10:06:54 CDC ASSOCIATE CPT-39683 Postop F/U Visit 10:02:45 CDT CPT-LR Lesion Removal 09:02:56 CDT CPT-JTINJ Asp/Joint Injection 15:51:27 CDC ASSOCIATE CPT-OV Office Visit 15:52:02 CDC ASSOCIATE CPT-OV Office Visit 15:45:11 CDT CPT-000 Give Zostavax 14:09:06 CDT CPT-15822 Administration single or combination vaccine inc oral 15 :19:04 CDT CPT-17143 Zoster Vaccine (Zostavax) 15:19:04 CDT CPT-20746 Administration single or combination vaccine inc oral 20 :51:03 CDT CPT-52536 Influenza split virus > age 3 20:51:03 CDT CPT-01734 No Charge Offi Visit 14:52:03 CDT CPT-OV Office Visit 14:57:43 CDT CPT-OV Office Visit 15:22:32 CDT CPT-34421 Administration single or combination vaccine inc oral 11 :33:15 CDT CPT-65679 Influenza split virus > age 3 11:33:15 CDT
--- OUTSIDE RECORDS SUMMARY | 2018-04-25 12:41 | XMS REPORT | Clinical Summary ---
Author Author Admin, SACHI Clemons [facility] Address Unknown Phone Unavailable Allergies, Adverse Reactions, Alerts Allergy Name Reaction Description Start Date Severity Status Provider DANIELLE migraine h/a Critical Active Luisa HU migraine h/a Moderate No Longer Active Tu [...] Landeros MD Benign essential hypertension Hypertension 401.9 Active Tu Landeros MD Unspecified essential hypertension LEG CRAMPS, NOCTURNAL 729.82 Resolved [...] gynecological examination Upper respiratory infection, viral 465.9 Active Tu Landeros MD Acute upper respiratory infections of unspecified site POSTMENOPAUSAL BLEEDING ICD-627.1 Inactive Elvira Cervantes MD [...] ICD-354.0 Inactive Tu Landeros MD ARTHRITIS ICD-716.90 Tessa Landeros MD KNEE PAIN ICD-719.46 Inactive Tu Landeros MD CONTUSION OF UNSPECIFIED SITE ICD-924.9 Tessa Landeros MD PRESSURE ULCER UNSPECIFIED SITE ICD-707.00 Tessa Landeros MD LOCALIZED SUPERFICIAL SWELLING MASS OR LUMP ICD-782.2 Tesas Landeros MD ONYCHOMYCOSIS ICD-110.1 Tessa Landeros MD [...] ICD-627.2 Tessa Landeros MD Sebaceous cyst ICD-706.2 Tessa Landeros MD Medication List Medication Instructions Start Date Stop Date Generic Name NDC Status Provider Patient Instruction METFORMIN HCL 1000 MG TABS 1 tablet by mouth twice daily METFORMIN HCL 69960034439 Active Tu Landeros MD Active FLONASE 50 MCG/ACT SUSP 1 spray each nostril twice daily until bottle empty FLUTICASONE PROPIONATE 64033059350 No Longer Active Tu Landeros MD Active COLACE 100 MG CAP 1 po BID PRN Constipation DOCUSATE SODIUM 41309769484 Active Tu Landeros MD Active SIMVASTATIN 40 MG TABS 0.5 tab daily at bedtime SIMVASTATIN 68084176653 Active Tu Landeros MD Active TRUERESULT BLOOD GLUCOSE W/DEVICE KIT test blood sugar twice daily dx 250.00 BLOOD GLUCOSE MONITORING SUPPL 69248983895 No Longer Active Tu Landeros MD Active TRUEDRAW LANCING DEVICE MISC Test twice a day dx 250.0 LANCET DEVICES 04398813540 No Longer Active Tu Landeros MD Active PREDNISONE 20 MG TAB 2 tablets once daily for 2 days, then 1 tablet once daily for 2 days PREDNISONE 76226944470 No Longer Active Tu Landeros MD Active DICLOFENAC SODIUM 50 MG TBEC 1 tablet by mouth three times a day as needed DICLOFENAC SODIUM 01349286917 No Longer Active Fab Morales DO Active TRUEDRAW LANCING DEVICE MISC test blood sugar twice daily dx: 250.00 LANCET DEVICES 97779950430 Active Tu Landeros MD Active TRUETEST TEST INVITR STRP test blood sugar twice daily. DX 250.0 GLUCOSE BLOOD 01773009885 Active Tu Landeros MD Active EMBRACE BLOOD GLUCOSE TEST STRP test blood sugar twice daily DX 250.0 2014 GLUCOSE BLOOD 08500472237 No Longer Active Tu Landeros MD Active TRUETEST TEST STRP test blood sugar three times daily dx: 250.00 GLUCOSE BLOOD 65704287310 No Longer Active Suze VOGEL Active TRUERESULT BLOOD GLUCOSE W/DEVICE KIT use to test blood sugar tid dx: 250.00 BLOOD GLUCOSE MONITORING SUPPL 67598313685 No Longer Active Suze Nicole RMA Active ALIGN 4 MG CAPS 1 tid PROBIOTIC PRODUCT 85709904479 No Longer Active Shaun Sy MD Active CIPRO 500 MG TABS 1 bid x 14 days start 09-28-13 CIPROFLOXACIN HCL 31386960102 No Longer Active Shaun Sy MD Active TRAMADOL HCL 50 MG TABS 1-2 tablets every 6 hours as needed for pain TRAMADOL HCL 13844601074 Active Tu Landeros MD Active HYDROCODONE-ACETAMINOPHEN 5-325 MG TABS 1 tab by mouth every 6 hours as needed for pain HYDROCODONE-ACETAMINOPHEN 10232055447 No Longer Active Tu Landeros MD Active OMEPRAZOLE 20 MG CPDR 1 po q a.m. OMEPRAZOLE 93696846458 Active Tu Landeros MD Active GABAPENTIN 100 MG CAPS 1 po bid GABAPENTIN 10550122684 No Longer Active Tu Landeros MD Active B-12 100 MCG TABS Take one by mouth daily CYANOCOBALAMIN 75760689035 No Longer Active Tu Landeros MD Active GABAPENTIN 100 MG CAPS by mouth twice a day GABAPENTIN 69199400505 Active Tu Landeros MD Active BACTRIM DS 800-160 MG TABS 1 bid x 14 day start 09-28-13 SULFAMETHOXAZOLE-TRIMETHOPRIM 76550305340 No Longer Active Tu Landeros MD Active CARVEDILOL 12.5 MG TABS 1 po BID CARVEDILOL 39753427276 Active Tu Landeros MD Active SUPER B COMPLEX/VITAMIN C TABS 1 qd B COMPLEX-C 41672507914 Active JASPREET Perez Active TRILIPIX 135 MG CPDR 1 q hs CHOLINE FENOFIBRATE 97156702004 Active Tu Landeros MD Active FENOFIBRATE 145 MG TABS 1 po qd FENOFIBRATE 10082723990 No Longer Active JASPREET Perez Active OMEPRAZOLE 20 MG TBEC 1 PO 30 MIN BEFORE 1ST MEAL OMEPRAZOLE 03412750599 No Longer Active JASPREET Perez Active SIMVASTATIN 40 MG TABS Take one by mouth daily SIMVASTATIN 02179288245 No Longer Active Gustavo JASPREET Green Active VENLAFAXINE HCL 37.5 MG TABS 1 bid VENLAFAXINE HCL 95388072830 Active Tu Landeros MD Active VENLAFAXINE HCL 75 MG TABS 1 po BID VENLAFAXINE HCL 45331152772 No Longer Active JASPREET Perez Active CIPRO 500 MG TAB 1 tablet by mouth twice daily CIPROFLOXACIN HCL 39529575630 No Longer Active Tu Landeros MD Active VENLAFAXINE HCL 37.5 MG TABS 1 po BID VENLAFAXINE HCL 42428626522 No Longer Active Suzebianca NUNOA Active LAMISIL 250 MG TAB 1 po qd TERBINAFINE HCL 59061700259 No Longer Active Tu Landeros MD Active LORTAB 5 5-500 MG TABS 1/2 to 1 tablet by mouth every 4 hours as needed for pain HYDROCODONE-ACETAMINOPHEN 61248094997 No Longer Active Tu Landeros MD Active ENALAPRIL MALEATE 20 MG TABS 1.5 po qd ENALAPRIL MALEATE 05364391239 Active Tu Landeros MD Active HYDROCODONE-ACETAMINOPHEN 5-500 MG TABS take one po Q 4-6 hours prn HYDROCODONE-ACETAMINOPHEN 55586143793 No Longer Active Tu Landeros MD Active BACTRIM DS 800-160 MG TABS 1 po BID x 7 days SULFAMETHOXAZOLE-TRIMETHOPRIM 17349865122 No Longer Active Tu Landeros MD Active VENLAFAXINE HCL 75 MG TABS 1 po BID VENLAFAXINE HCL 07657738008 No Longer Active Elvira Cervantes MD PhD Active TRAMADOL HCL 50 MG TABS 1 tablets every 6 hours as needed for pain TRAMADOL HCL 87185979775 No Longer Active Tu Landeros MD Active ACCU-CHEK FASTCLIX LANCETS MISC Use to check bloodsugar three times daily as needed LANCETS 83204690693 No Longer Active Tu Landeros MD Active ACCU-CHEK KEYONA PLUS STRP Use for testing bloodsugars three times daily as needed GLUCOSE BLOOD 77675383483 No Longer Active Tu Landeros MD Active ACCU-CHEK KEYONA PLUS W/DEVICE KIT Use for testing bloodsugars three times daily as needed BLOOD GLUCOSE MONITORING SUPPL 89688078057 No Longer Active Tu Landeros MD Active SPIRONOLACTONE 25 MG TAB 0.5 tablet by mouth daily SPIRONOLACTONE 86161270799 No Longer Active Tu Landeros MD Active ALPRAZOLAM 0.5 MG TABS 1 tab every 6hrs as needed ALPRAZOLAM 03607960652 No Longer Active Tu Landeros MD Active AUGMENTIN 875-125 MG TAB 1 tab by mouth twice daily with food AMOXICILLIN-POT CLAVULANATE 31110645347 No Longer Active Tu Landeros MD Active PREDNISONE 20 MG TAB 2 tabs daily for 3 days, 1 tab daily for 3 days, 1/2 tab daily for 2 days PREDNISONE 73610558539 No Longer Active Tu Landeros MD Active XANAX 0.5 MG TABS 1 tablet every 6 hrs prn ALPRAZOLAM 31734046387 No Longer Active Tu Landeros MD Active PREDNISONE 20 MG TAB 2 tabs daily for 3 days, 1 tab daily for 3 days, 1/2 tab daily for 2 days PREDNISONE 57352230744 No Longer Active Tu Landeros MD Active TRIAMCINOLONE ACETONIDE 0.1 % OINT Apply to affected areas TID for up to 2 weeks TRIAMCINOLONE ACETONIDE 62144968077 No Longer Active Tu Landeros MD Active LORTAB 5 5-500 MG TABS 1/2 to 1 tablet by mouth every 4 hours as needed for pain HYDROCODONE-ACETAMINOPHEN 07922612408 No Longer Active Tu Landeros MD Active MULTIVITAMINS TABS Take one by mouth daily MULTIPLE VITAMIN 27565941708 No Longer Active Tu Landeros MD Active MELATONIN 5 MG TABS Take one by mouth daily MELATONIN 30969465239 No Longer Active Tu Landeros MD Active SOMA 350 MG TAB 1 po q 6 hours prn spasm CARISOPRODOL 73100678327 No Longer Active Tu Landeros MD Active MECLIZINE HCL 25 MG CHEW TAB 1 four times a day as needed for dizziness 08/05 MECLIZINE HCL 55843471364 No Longer Active Fab Morales DO Active ANGEL BREEZE 2 TEST DISK test tid prn GLUCOSE BLOOD 59892001608 No Longer Active Negra Scott RN Active REGLAN 10 MG TAB 1 po TID PRN Nausea METOCLOPRAMIDE HCL 83482373185 No Longer Active Tu Landeros MD Active METFORMIN HCL 500 MG TABS 1 PO BID METFORMIN HCL 61275961433 No Longer Active Tu Landeros MD Active AMBIEN 10 MG TAB 1 tab by mouth at bedtime as needed for sleep ZOLPIDEM TARTRATE 54727848989 No Longer Active Tu Landeros MD Active FLUOXETINE HCL 40 MG CAPS 1 po q day FLUOXETINE HCL 14769108208 No Longer Active Mayra Barnet Active FISH OIL 1000 MG CAPS Take one by mouth daily OMEGA-3 FATTY ACIDS 96071738721 Active Tu Landeros MD Active GLUCOSAMINE 500 MG TABS Take 2 tab po qd GLUCOSAMINE 49232333043 Active Tu Landeros MD Active TRILIPIX 135 MG CPDR 1 po qd CHOLINE FENOFIBRATE 54112099709 No Longer Active Tu Landeros MD Active ASPIRIN 81 MG CHEW TAB 1 tablet by mouth daily ASPIRIN 53961936862 Active Tu Landeros MD Active FUROSEMIDE 40 MG TAB 1 tablet by mouth daily FUROSEMIDE 60445923933 Active Tu Landeros MD Active REQUIP 2 MG TABS Take one tablet at bedtime prn ROPINIROLE HCL 77704530124 Active Tu Landeros MD Active KLOR-CON 10 10 MEQ CR-TABS TAKE 2 TABS DAILY POTASSIUM CHLORIDE 94603389158 Active Tu Landeros MD Active AMBIEN 10 MG TAB 1 tab by mouth at bedtime as needed for sleep AMBIEN 10 MG TAB 667770 ZOLPIDEM TARTRATE Inactive METFORMIN HCL 500 MG TABS 1 PO BID METFORMIN HCL 500 MG TABS 900170 METFORMIN HCL Inactive REGLAN 10 MG TAB 1 po TID PRN Nausea REGLAN 10 MG TAB 418449 METOCLOPRAMIDE HCL Inactive MECLIZINE HCL 25 MG CHEW TAB 1 four times a day as needed for dizziness 08/05 MECLIZINE HCL 25 MG CHEW TAB 486842 MECLIZINE HCL Inactive SOMA 350 MG TAB 1 po q 6 hours prn spasm SOMA 350 MG TAB 379980 CARISOPRODOL Inactive MELATONIN 5 MG TABS Take one by mouth daily MELATONIN 5 MG TABS 927126 MELATONIN Inactive MULTIVITAMINS TABS Take one by mouth daily MULTIVITAMINS TABS MULTIPLE VITAMIN Inactive LORTAB 5 5-500 MG TABS 1/2 to 1 tablet by mouth every 4 hours as needed for pain LORTAB 5 5-500 MG TABS HYDROCODONE- ACETAMINOPHEN Inactive XANAX 0.5 MG TABS 1 tablet every 6 hrs prn XANAX 0.5 MG TABS 375234 ALPRAZOLAM Inactive AUGMENTIN 875-125 MG TAB 1 tab by mouth twice daily with food AUGMENTIN 875-125 MG TAB 784855 AMOXICILLIN-POT CLAVULANATE Inactive ALPRAZOLAM 0.5 MG TABS 1 tab every 6hrs as needed ALPRAZOLAM 0.5 MG TABS 939501 ALPRAZOLAM Inactive SPIRONOLACTONE 25 MG TAB 0.5 tablet by mouth daily SPIRONOLACTONE 25 MG TAB 861063 SPIRONOLACTONE Inactive ACCU-CHEK KEYONA PLUS W/DEVICE KIT Use for testing bloodsugars three times daily as needed ACCU-CHEK KEYONA PLUS W/DEVICE KIT BLOOD GLUCOSE MONITORING SUPPL Inactive ACCU-CHEK KEYONA PLUS STRP Use for testing bloodsugars three times daily as needed ACCU-CHEK KEYONA PLUS STRP GLUCOSE BLOOD Inactive ACCU-CHEK FASTCLIX LANCETS MISC Use to check bloodsugar three times daily as needed ACCU-CHEK FASTCLIX LANCETS MISC 22207571147 LANCETS Inactive TRAMADOL HCL 50 MG TABS 1 tablets every 6 hours as needed for pain TRAMADOL HCL 50 MG TABS 391847 TRAMADOL HCL Inactive VENLAFAXINE HCL 75 MG TABS 1 po BID VENLAFAXINE HCL 75 MG TABS 524622 VENLAFAXINE HCL Inactive HYDROCODONE-ACETAMINOPHEN 5-500 MG TABS take one po Q 4-6 hours prn HYDROCODONE-ACETAMINOPHEN 5-500 MG TABS HYDROCODONE- ACETAMINOPHEN Inactive LORTAB 5 5-500 MG TABS 1/2 to 1 tablet by mouth every 4 hours as needed for pain LORTAB 5 5-500 MG TABS HYDROCODONE- ACETAMINOPHEN Inactive LAMISIL 250 MG TAB 1 po qd LAMISIL 250 MG TAB 965286 TERBINAFINE HCL Inactive VENLAFAXINE HCL 37.5 MG TABS 1 po BID VENLAFAXINE HCL 37.5 MG TABS 716603 VENLAFAXINE HCL Inactive CIPRO 500 MG TAB 1 tablet by mouth twice daily CIPRO 500 MG TAB 291633 CIPROFLOXACIN HCL Inactive VENLAFAXINE HCL 75 MG TABS 1 po BID VENLAFAXINE HCL 75 MG TABS 664207 VENLAFAXINE HCL Inactive SIMVASTATIN 40 MG TABS Take one by mouth daily SIMVASTATIN 40 MG TABS 498058 SIMVASTATIN Inactive OMEPRAZOLE 20 MG TBEC 1 PO 30 MIN BEFORE 1ST MEAL OMEPRAZOLE 20 MG TBEC 712614 OMEPRAZOLE Inactive FENOFIBRATE 145 MG TABS 1 po qd FENOFIBRATE 145 MG TABS 522103 FENOFIBRATE Inactive BACTRIM DS 800-160 MG TABS 1 bid x 14 day start 09-28-13 BACTRIM DS 800-160 MG TABS 248266 SULFAMETHOXAZOLE-TRIMETHOPRIM Inactive B-12 100 MCG TABS Take one by mouth daily B-12 100 MCG TABS CYANOCOBALAMIN Inactive GABAPENTIN 100 MG CAPS 1 po bid GABAPENTIN 100 MG CAPS 367635 GABAPENTIN Inactive HYDROCODONE-ACETAMINOPHEN 5-325 MG TABS 1 tab by mouth every 6 hours as needed for pain HYDROCODONE-ACETAMINOPHEN 5-325 MG TABS 443461 HYDROCODONE-ACETAMINOPHEN Inactive CIPRO 500 MG TABS 1 bid x 14 days start 09-28-13 CIPRO 500 MG TABS 852770 CIPROFLOXACIN HCL Inactive ALIGN 4 MG CAPS [...] as needed DICLOFENAC SODIUM 50 MG TBEC 460618 DICLOFENAC SODIUM Inactive PREDNISONE 20 MG TAB 2 tablets once daily for 2 days, then 1 tablet once daily for 2 days PREDNISONE 20 MG TAB 920178 PREDNISONE Inactive TRUEDRAW LANCING DEVICE MISC Test twice a day dx 250.0 TRUEDRAW LANCING DEVICE MISC LANCET DEVICES Inactive TRUERESULT BLOOD GLUCOSE W/DEVICE KIT test blood sugar twice daily dx 250.00 TRUERESULT BLOOD GLUCOSE W/DEVICE KIT BLOOD GLUCOSE MONITORING SUPPL Inactive FLONASE 50 MCG/ACT SUSP 1 spray each nostril twice daily until bottle empty FLONASE 50 MCG/ACT SUSP FLUTICASONE PROPIONATE Inactive TRIAMCINOLONE ACETONIDE 0.1 % OINT Apply to affected areas TID for up to 2 weeks TRIAMCINOLONE ACETONIDE 0.1 % OINT 9264787 TRIAMCINOLONE ACETONIDE Inactive PREDNISONE 20 MG TAB 2 tabs daily for 3 days, 1 tab daily for 3 days, 1/2 tab daily for 2 days PREDNISONE 20 MG TAB 043047 PREDNISONE Inactive PREDNISONE 20 MG TAB 2 tabs daily for 3 days, 1 tab daily for 3 days, 1/2 tab daily for 2 days PREDNISONE 20 MG TAB 089759 PREDNISONE Inactive BACTRIM DS 800-160 MG TABS 1 po BID x 7 days BACTRIM DS 800-160 MG TABS 604517 SULFAMETHOXAZOLE-TRIMETHOPRIM Inactive Immunizations Vaccine Administration Date Value Standard Description Seasonal influenza vaccine, injectable, containing preservative, for > 3 years old (Afluria, FluLaval, Fluzone, Fluvirin, Fluarix, Agriflu(>=18 yo)) Fluzone (>3 yrs.) [[id number]] Influenza, seasonal, injectable influenza immunization (Flu Vax) has been administered 02/22/2012 influenza virus vaccine, unspecified formulation Seasonal influenza vaccine, injectable, containing preservative, for > 3 years old (Afluria, FluLaval, Fluzone, Fluvirin, Fluarix, Agriflu(>=18 yo)) Fluzone (>3 yrs.) [RBP267] Influenza, seasonal, injectable Vital Signs Date Name Value Unit Range Description blood pressure, diastolic - 8462-4 84 mm[Hg] BP ac blood pressure, systolic - 8480-6 171 mm[Hg] BP sys pulse rate E&M - 8867-4 65 /min Heart rate temperature E&M 98.1 [degF] Body temperature weight E&M - 3141-9 311.5 [lb_av] Weight Measured blood pressure, diastolic - 8462-4 75 mm[Hg] BP ac blood pressure, systolic - 8480-6 131 mm[Hg] BP sys pulse rate E&M - 8867-4 59 /min Heart rate temperature E&M 97.4 [degF] Body temperature weight E&M - 3141-9 310.5 [lb_av] Weight Measured blood pressure, diastolic - 8462-4 77 mm[Hg] BP ac blood pressure, systolic - 8480-6 176 mm[Hg] BP sys height E&M - 8302-2 65 [in_us] Bdy height pulse rate E&M - 8867-4 68 /min Heart rate temperature E&M 97.1 [degF] Body temperature weight E&M - 3141-9 310.5 [lb_av] Weight Measured blood pressure, diastolic - 8462-4 72 mm[Hg] BP ac blood pressure, systolic - 8480-6 149 mm[Hg] BP sys height E&M - 8302-2 65 [in_us] Bdy height pulse rate E&M - 8867-4 75 /min Heart rate temperature E&M 97.8 [degF] Body temperature weight E&M - 3141-9 308.5 [lb_av] Weight Measured blood pressure, diastolic - 8462-4 86 mm[Hg] BP ac blood pressure, systolic - 8480-6 126 mm[Hg] BP sys pulse rate E&M - 8867-4 71 /min Heart rate temperature E&M 96.9 [degF] Body temperature weight E&M - 3141-9 314 [lb_av] Weight Measured blood pressure, diastolic - 8462-4 78 mm[Hg] BP ac blood pressure, systolic - 8480-6 151 mm[Hg] BP sys pulse rate E&M - 8867-4 82 /min Heart rate temperature E&M 98.3 [degF] Body temperature weight E&M - 3141-9 314.4 [lb_av] Weight Measured blood pressure, diastolic, second observation 75 mm[Hg] BP ac blood pressure, diastolic - 8462-4 77 mm[Hg] BP ac blood pressure, systolic, second observation 150 mm[Hg] BP sys blood pressure, systolic - 8480-6 146 mm[Hg] BP sys pulse rate E&M - 8867-4 60 /min Heart rate blood pressure, diastolic - 8462-4 76 mm[Hg] BP ac blood pressure, systolic - 8480-6 162 mm[Hg] BP sys pulse rate E&M - 8867-4 64 /min Heart rate temperature E&M 97.6 [degF] Body temperature weight E&M - 3141-9 319 [lb_av] Weight Measured Diagnostic Results Date Name Value Unit Range Description Lab Report: Basic Metabolic Panel, CBC - Chemistry sodium, serum 143 mmol/L 017-934 1866/03/10 potassium, serum 4.9 mmol/L 3.5-5.2 chloride, serum 105 mmol/L 98-107 carbon dioxide, venous blood 30.3 mmol/L 21.0-32.0 blood glucose 141 mg/dL 65-110 calcium, serum 8.6 mg/dL 8.5-10.1 urea nitrogen, blood 22 mg/dL 7-18 creatinine, serum 1.10 mg/dL 0.60-1.30 Lab Report: Basic Metabolic Panel, CBC - Hematology leukocyte count, blood 7.9 10^3/MM^3 10*3/mm3 4.6-10.2 erythrocyte (RBC) count 4.15 10^6/MM^3 10*6/mm3 4.04-5.48 hemoglobin, blood 12.4 g/dL 12.0-16.0 hematocrit, blood 37.0 % 36.0-46.0 mean corpuscular volume, RBC 89 fL 80-97 mean corpuscular hemoglobin, RBC 29.8 pg 27.0-31.2 mean corpuscular hemoglobin concentration, RBC 33.5 G/DL % 31.8- 35.4 red blood cell distribution width 16.7 % 11.6-14.8 platelet count 275 10^3/MM^3 10*3/mm3 142-424 Lab Report: Basic Metabolic Panel, MICROALBUMIN - Chemistry sodium, serum 142 mmol/L 019-471 4210/10/08 potassium, serum 4.5 mmol/L 3.5-5.2 chloride, serum 105 mmol/L 98-107 carbon dioxide, venous blood 28.9 mmol/L 21.0-32.0 blood glucose 142 mg/dL 65-110 calcium, serum 9.1 mg/dL 8.5-10.1 urea nitrogen, blood 17 mg/dL 7-18 creatinine, serum 0.92 mg/dL 0.55-1.30 albumin/creatinine ratio, urine < 30 mg/g mg/g{creat} 0-29 Lab Report: Basic Metabolic Panel, MICROALBUMIN - Lab microalbumin, urine 10 0-19 Lab Report: HEPATIC PANEL, Lipid Panel - Chemistry aspartate aminotransferase (SGOT), serum 18 U/L 15-37 alanine aminotransferase (SGPT), serum 32 U/L 12-78 bilirubin, serum, total 0.30 mg/dL 0.00-1.00 cholesterol, serum 111 mg/dL 932-271 6858/07/28 triglyceride, serum, fasting 177 mg/dL 30-200 HDL cholesterol, serum 32 mg/dL 32-96 LDL cholesterol, serum 44 mg/dL 0-130 Lab Report: HGBA1C - Chemistry hemoglobin A1C, blood, as % of total hemoglobin 6.8 % 4.3-6.0 hemoglobin A1C, blood, as % of total hemoglobin 6.6 % 4.3-6.0 hemoglobin A1C, blood, as % of total hemoglobin 7.7 % 4.3-6.0 Lab Report: LH/Adult/615, FSH/Adult/470 - Chemistry luteinizing hormone, serum 1.3 m[iU]/mL follicle stimulating hormone, serum 5.5 m[iU]/mL Encounters Code Encounter Date Provider Facility CPT-40783 Level 4 Est. Patient 13:50:18 [employer] Tu Landeros MD [facility] CPT-66193 Level 3 Est. Patient 10:30:04 CDT Tu Landeros MD [facility] CPT-75562 Level 4 Est. Patient 11:03:38 CDT Tu Landeros MD [facility] CPT-75133 Level 3 Est. Patient 10:20:44 CDT Fab Morales DO [facility] CPT-04631 Level 4 Est. Patient 14:38:57 CDT Tu Landeros MD [facility] CPT-69771 Level 4 Est. Patient 14:27:39 [employer] Tu Landeros MD [facility] CPT-20308 Level 4 Est. Patient 09:45:25 CDT Tu Landeros MD [facility] CPT-40577 Level 4 Est. 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 Patient 14:09:06 CDT Tu Landeros MD [facility] CPT-91861 Level 3 Est. Patient 13:36:54 CDT Tu Landeros MD [facility] CPT-89886 Level 3 Est. Patient 08:59:14 CDT Tu Landeros MD [facility] CPT-05642 Level 3 Est. Patient 13:48:35 CDT Fab Morales DO [facility] CPT-27219 Level 4 Est. Patient 10:05:48 CDT Tu Landeros MD [facility] CPT-44171 Level 3 Est. Patient 13:38:42 CDT Marek BANKS [facility] CPT-69018 Level 5 Est. Patient 08:08:39 CDT Jerrica FRANCIS [facility] CPT-44896 Level 4 Est. Patient 14:23:38 CDT Tu Landeros MD [facility] CPT-54744 Level 3 Est. Patient 11:44:04 CDT Tu Landeros MD [facility] CPT-30128 Level 3 Est. Patient 11:03:20 [employer]IST Tu Landeros MD [facility] CPT-58455 Level 3 Est. Patient 11:03:14 [employer]IST Tu Landeros MD [facility] CPT-89299 Level 3 Est. Patient 12:42:49 CDT Tu Landeros MD [facility] CPT-14511 Level 3 Est. Patient 11:52:06 CDT Tu Landeros MD [facility] CPT-59066 Level 3 Est. Patient 13:58:11 CDT Tu Landeros MD [facility] CPT-41263 Level 3 Est. Patient 17:50:07 CDT Fab Morales DO [facility] CPT-89990 Level 3 Est. Patient 12:06:29 CDT Elvira Cervantes MD PhD [facility] CPT-61084 Level 3 Est. Patient 15:50:32 CDT Tu Landeros MD [facility] CPT-43588 Level 4 Est. Patient 16:08:29 CDT Tu Landeros MD [facility] CPT-48686 Level 3 Est. Patient 16:04:19 CDT Tu Landeros MD [facility] CPT-27148 Level 3 Est. Patient 11:22:30 [employer] Tu Landeros MD [facility] CPT-09382 Level 4 Est. Patient 16:24:02 [employer]IST Tu Landeros MD [facility] CPT-28669 Level 3 Est. Patient 17:21:23 [employer] Tu Landeros MD [facility] Procedures Code Procedure Name Date Entry Date Standard Description CPT-80059 Postop F/U Visit 10:02:45 CDT CPT-LR Lesion Removal 09:02:56 CDT CPT-JTINJ Asp/Joint Injection 15:51:27 [employer] CPT-OV Office Visit 15:52:02 [employer] CPT-OV Office Visit 15:45:11 CDT CPT-000 Give Zostavax 14:09:06 CDT CPT-88415 Administration single or combination vaccine inc oral 15 :19:04 CDT CPT-22708 Zoster Vaccine (Zostavax) 15:19:04 CDT CPT-81432 Administration single or combination vaccine inc oral 20 :51:03 CDT CPT-76055 Influenza split virus > age 3 20:51:03 CDT CPT-24569 No Charge Offi Visit 14:52:03 CDT CPT-OV Office Visit 14:57:43 CDT CPT-OV Office Visit 15:22:32 CDT CPT-21125 Administration single or combination vaccine inc oral 11 :33:15 CDT CPT-15295 Influenza split virus > age 3 11:33:15 CDT
--- OUTSIDE RECORDS SUMMARY | 2018-04-25 12:42 | XMS REPORT | Clinical Summary ---
Author Author Admin, SACHI Organization [facility] Address Unknown Phone Unavailable Allergies, Adverse Reactions, [...] Upper respiratory infection, viral 465.9 Resolved Tu Lanedros MD Acute upper respiratory infections of unspecified [...] Active Tu Landeros MD Obesity , unspecified POSTMENOPAUSAL BLEEDING ICD-627.1 Inactive Elvira Cervantes MD PhD HEALTH SCREENING ICD-V70.0 Inactive Elvira Cervantes MD PhD 2011 INSOMNIA, PERSISTENT ICD-307.42 Inactive Tu Landeros MD GASTROENTERITIS ICD-558.9 Inactive Tu Landeros MD DIZZINESS ICD-780.4 Inactive uT Landeros MD BENIGN PAROXYSMAL POSITIONAL VERTIGO ICD-386.11 [...] left, acute ICD-719.46 Inactive Tu Landeros MD Ear pain, bilateral [...] Generic Name NDC Status Provider Patient Instruction TRUE METRIX BLOOD GLUCOSE TEST INVITR STRP Test blood sugar BID Dx: E11.9 GLUCOSE BLOOD 47423391965 Active Tu Landeros MD Active TRUE METRIX AIR GLUCOSE METER W/DEVICE KIT Test blood glucose BID Dx: E11.9 BLOOD GLUCOSE MONITORING SUPPL 47012919874 Active Tu Landeros MD Active TRUETEST TEST INVITR STRP test blood sugar twice daily. DX 250.0 GLUCOSE BLOOD 75002061485 No Longer Active Mirna Stanley LPN Active TRUEDRAW LANCING DEVICE MISC test blood sugar twice daily dx: 250.00 LANCET DEVICES 87733347019 No Longer Active Mirna Stanley LPN Active ENALAPRIL MALEATE 20 MG TABS 2 po qd ENALAPRIL MALEATE 28392987298 Active Tu Landeros MD Active SUPER B COMPLEX/VITAMIN C TABS 1 qd B COMPLEX-C 50718489751 No Longer Active Tu Landeros MD Active ASPIRIN EC 81 MG ORAL TBEC 1 po qd ASPIRIN 45697299182 Active Tu Landeros MD Active GLUCOSAMINE 500 MG TABS 2 po qd GLUCOSAMINE Active Tu Landeros MD Active SIMVASTATIN 40 MG TABS 0.5 po qHS SIMVASTATIN 89238872779 Active Tu Landeros MD Active FISH OIL 1000 MG CAPS 1 po qd OMEGA-3 FATTY ACIDS 71410502326 Active Tu Landeros MD Active METFORMIN HCL 1000 MG TABS 1 po BID METFORMIN HCL 71412011437 Active Tu Landeros MD Active KLOR-CON 10 10 MEQ CR-TABS 2 po qd POTASSIUM CHLORIDE 77238650319 Active Tu Landreos MD Active FUROSEMIDE 40 MG TAB 1 po qd FUROSEMIDE 58129045313 Active Tu Landeros MD Active REQUIP 2 MG ORAL TABS 1 po qHS PRN Restless legs ROPINIROLE HCL 81226060372 Active Tu Landeros MD Active VENLAFAXINE HCL 37.5 MG TABS 1 po BID VENLAFAXINE HCL 92854768313 Active Tu Landeros MD Active GABAPENTIN 100 MG CAPS 1 po BID GABAPENTIN 95798665799 Active José Luis Becerra MD Active REQUIP 2 MG TABS Take one tablet at bedtime prn ROPINIROLE HCL 33830881169 No Longer Active Tu Landeros MD Active VENTOLIN HFA 108 (90 BASE) MCG/ACT AERS 1-2 puffs every 4 hours if needed for cough/congestion ALBUTEROL SULFATE 20920735817 No Longer Active Ambika Aden APRN Active ZITHROMAX 250 MG TAB 2 po today, then 1 po q days 2-5 AZITHROMYCIN 32240713481 No Longer Active Miranda Suresh APRN Active FLONASE 50 MCG/ACT SUSP 1 spray each nostril twice daily until bottle empty FLUTICASONE PROPIONATE 79244793768 No Longer Active Tu Landeros MD Active COLACE 100 MG CAP 1 po BID PRN Constipation DOCUSATE SODIUM 64485915845 Active Tu Landeros MD Active TRUERESULT BLOOD GLUCOSE W/DEVICE KIT test blood sugar twice daily dx 250.00 BLOOD GLUCOSE MONITORING SUPPL 63112530800 No Longer Active Tu Landeros MD Active TRUEDRAW LANCING DEVICE MISC Test twice a day dx 250.0 LANCET DEVICES 71825804673 No Longer Active Tu Landeros MD Active PREDNISONE 20 MG TAB 2 tablets once daily for 2 days, then 1 tablet once daily for 2 days PREDNISONE 74702614310 No Longer Active Tu Landeros MD Active DICLOFENAC SODIUM 50 MG TBEC 1 tablet by mouth three times a day as needed DICLOFENAC SODIUM 23929517760 No Longer Active Fab Morales DO Active EMBRACE BLOOD GLUCOSE TEST STRP test blood sugar twice daily DX 250.0 2014 GLUCOSE BLOOD 83976015498 No Longer Active Tu Landeros MD Active TRUETEST TEST STRP test blood sugar three times daily dx: 250.00 GLUCOSE BLOOD 27192538863 No Longer Active Suzebianca VOGEL Active TRUERESULT BLOOD GLUCOSE W/DEVICE KIT use to test blood sugar tid dx: 250.00 BLOOD GLUCOSE MONITORING SUPPL 93132830275 No Longer Active Suze VOGEL Active ALIGN 4 MG CAPS 1 tid PROBIOTIC PRODUCT 43453772885 No Longer Active Shaun Sy MD Active CIPRO 500 MG TABS 1 bid x 14 days start 09-28-13 CIPROFLOXACIN HCL 57709661040 No Longer Active Shaun Sy MD Active TRAMADOL HCL 50 MG TABS 1-2 tablets every 6 hours as needed for pain TRAMADOL HCL 32609278185 Active Tu Landeros MD Active HYDROCODONE-ACETAMINOPHEN 5-325 MG TABS 1 tab by mouth every 6 hours as needed for pain HYDROCODONE-ACETAMINOPHEN 74716030077 No Longer Active Tu Landeros MD Active OMEPRAZOLE 20 MG CPDR 1 po q a.m. OMEPRAZOLE 79481371719 Active Tu Landeros MD Active GABAPENTIN 100 MG CAPS 1 po bid GABAPENTIN 17288371589 No Longer Active Tu Landeros MD Active B-12 100 MCG TABS Take one by mouth daily CYANOCOBALAMIN 66084370702 No Longer Active Tu Landeros MD Active BACTRIM DS 800-160 MG TABS 1 bid x 14 day start 09-28-13 SULFAMETHOXAZOLE-TRIMETHOPRIM 17595666777 No Longer Active Tu Landeros MD Active CARVEDILOL 12.5 MG TABS 1 po BID CARVEDILOL 78111312415 Active Tu Landeros MD Active TRILIPIX 135 MG CPDR 1 q hs CHOLINE FENOFIBRATE 08765194457 Active Tu Landeros MD Active FENOFIBRATE 145 MG TABS 1 po qd FENOFIBRATE 31597880835 No Longer Active JASPREET Perez Active OMEPRAZOLE 20 MG TBEC 1 PO 30 MIN BEFORE 1ST MEAL OMEPRAZOLE 53906720434 No Longer Active JASPREET Perez Active SIMVASTATIN 40 MG TABS Take one by mouth daily SIMVASTATIN 14641375327 No Longer Active JASPREET Perez Active VENLAFAXINE HCL 75 MG TABS 1 po BID VENLAFAXINE HCL 28245221407 No Longer Active JASPREET Perez Active CIPRO 500 MG TAB 1 tablet by mouth twice daily CIPROFLOXACIN HCL 65263126768 No Longer Active Tu Landeros MD Active VENLAFAXINE HCL 37.5 MG TABS 1 po BID VENLAFAXINE HCL 74938104576 No Longer Active Suzebianca NUNOA Active LAMISIL 250 MG TAB 1 po qd TERBINAFINE HCL 98446111530 No Longer Active Tu aLnderos MD Active LORTAB 5 5-500 MG TABS 1/2 to 1 tablet by mouth every 4 hours as needed for pain HYDROCODONE-ACETAMINOPHEN 02283005209 No Longer Active Tu Landeros MD Active HYDROCODONE-ACETAMINOPHEN 5-500 MG TABS take one po Q 4-6 hours prn HYDROCODONE-ACETAMINOPHEN 05606651097 No Longer Active Tu Landeros MD Active BACTRIM DS 800-160 MG TABS 1 po BID x 7 days SULFAMETHOXAZOLE-TRIMETHOPRIM 67721240594 No Longer Active Tu Landeros MD Active VENLAFAXINE HCL 75 MG TABS 1 po BID VENLAFAXINE HCL 90945685574 No Longer Active Elvira Cervantes MD PhD Active TRAMADOL HCL 50 MG TABS 1 tablets every 6 hours as needed for pain TRAMADOL HCL 76110192447 No Longer Active Tu Landeros MD Active ACCU-CHEK FASTCLIX LANCETS MISC Use to check bloodsugar three times daily as needed LANCETS 38113728800 No Longer Active Tu Landeros MD Active ACCU-CHEK KEYONA PLUS STRP Use for testing bloodsugars three times daily as needed GLUCOSE BLOOD 69705719139 No Longer Active Tu Landeros MD Active ACCU-CHEK KEYONA PLUS W/DEVICE KIT Use for testing bloodsugars three times daily as needed BLOOD GLUCOSE MONITORING SUPPL 87248199912 No Longer Active Tu Landeros MD Active SPIRONOLACTONE 25 MG TAB 0.5 tablet by mouth daily SPIRONOLACTONE 04173365440 No Longer Active Tu Landeros MD Active ALPRAZOLAM 0.5 MG TABS 1 tab every 6hrs as needed ALPRAZOLAM 36385183220 No Longer Active Tu Landeros MD Active AUGMENTIN 875-125 MG TAB 1 tab by mouth twice daily with food AMOXICILLIN-POT CLAVULANATE 85434399966 No Longer Active Tu Landeros MD Active PREDNISONE 20 MG TAB 2 tabs daily for 3 days, 1 tab daily for 3 days, 1/2 tab daily for 2 days PREDNISONE 22339574529 No Longer Active Tu Landeros MD Active XANAX 0.5 MG TABS 1 tablet every 6 hrs prn ALPRAZOLAM 38981361719 No Longer Active Tu Landeros MD Active PREDNISONE 20 MG TAB 2 tabs daily for 3 days, 1 tab daily for 3 days, 1/2 tab daily for 2 days PREDNISONE 96692861538 No Longer Active Tu Landeros MD Active TRIAMCINOLONE ACETONIDE 0.1 % OINT Apply to affected areas TID for up to 2 weeks TRIAMCINOLONE ACETONIDE 35595108998 No Longer Active Tu Landeros MD Active LORTAB 5 5-500 MG TABS 1/2 to 1 tablet by mouth every 4 hours as needed for pain HYDROCODONE-ACETAMINOPHEN 87542279080 No Longer Active Tu Landeros MD Active MULTIVITAMINS TABS Take one by mouth daily MULTIPLE VITAMIN 08837192325 No Longer Active Tu Landeros MD Active MELATONIN 5 MG TABS Take one by mouth daily MELATONIN 84627847877 No Longer Active Tu Landeros MD Active SOMA 350 MG TAB 1 po q 6 hours prn spasm CARISOPRODOL 24126439142 No Longer Active Tu Landeros MD Active MECLIZINE HCL 25 MG CHEW TAB 1 four times a day as needed for dizziness 08/05 MECLIZINE HCL 58965023317 No Longer Active Fab Morales DO Active ANGEL BREEZE 2 TEST DISK test tid prn GLUCOSE BLOOD 80163477753 No Longer Active Negra Scott RN Active REGLAN 10 MG TAB 1 po TID PRN Nausea METOCLOPRAMIDE HCL 87455711547 No Longer Active Tu Landeros MD Active METFORMIN HCL 500 MG TABS 1 PO BID METFORMIN HCL 72988236442 No Longer Active Tu Landeros MD Active AMBIEN 10 MG TAB 1 tab by mouth at bedtime as needed for sleep ZOLPIDEM TARTRATE 96497890183 No Longer Active Tu Landeros MD Active FLUOXETINE HCL 40 MG CAPS 1 po q day FLUOXETINE HCL 05003971457 No Longer Active Mayra Terry Active TRILIPIX 135 MG CPDR 1 po qd CHOLINE FENOFIBRATE 09146568088 No Longer Active Tu Landeros MD Active ALPRAZOLAM 0.5 MG TABS 1 tab every 6hrs as needed ALPRAZOLAM 0.5 MG TABS 394967 ALPRAZOLAM Inactive AMBIEN 10 MG TAB 1 tab by mouth at bedtime as needed for sleep AMBIEN 10 MG TAB 494937 ZOLPIDEM TARTRATE Inactive BACTRIM DS 800-160 MG TABS 1 po BID x 7 days BACTRIM DS 800-160 MG TABS 153317 SULFAMETHOXAZOLE-TRIMETHOPRIM Inactive BACTRIM DS 800-160 MG TABS 1 bid x 14 day start 09-28-13 BACTRIM DS 800-160 MG TABS 774204 SULFAMETHOXAZOLE-TRIMETHOPRIM Inactive CIPRO 500 MG TABS 1 bid x 14 days start 09-28-13 CIPRO 500 MG TABS 322768 CIPROFLOXACIN HCL Inactive CIPRO 500 MG TAB 1 tablet by mouth twice daily CIPRO 500 MG TAB 150306 CIPROFLOXACIN HCL Inactive MECLIZINE HCL 25 MG CHEW TAB 1 four times a day as needed for dizziness 08/05 MECLIZINE HCL 25 MG CHEW TAB 947271 MECLIZINE HCL Inactive MULTIVITAMINS TABS Take one by mouth daily MULTIVITAMINS TABS MULTIPLE VITAMIN Inactive PREDNISONE 20 MG TAB 2 tabs daily for 3 days, 1 tab daily for 3 days, 1/2 tab daily for 2 days PREDNISONE 20 MG TAB 447432 PREDNISONE Inactive PREDNISONE 20 MG TAB 2 tabs daily for 3 days, 1 tab daily for 3 days, 1/2 tab daily for 2 days PREDNISONE 20 MG TAB 418044 PREDNISONE Inactive PREDNISONE 20 MG TAB 2 tablets once daily for 2 days, then 1 tablet once daily for 2 days PREDNISONE 20 MG TAB 785466 PREDNISONE Inactive REGLAN 10 MG TAB 1 po TID PRN Nausea REGLAN 10 MG TAB 893239 METOCLOPRAMIDE HCL Inactive SOMA 350 MG TAB 1 po q 6 hours prn spasm SOMA 350 MG TAB 771434 CARISOPRODOL Inactive SPIRONOLACTONE 25 MG TAB 0.5 tablet by mouth daily SPIRONOLACTONE 25 MG TAB 568127 SPIRONOLACTONE Inactive TRIAMCINOLONE ACETONIDE 0.1 % OINT Apply to affected areas TID for up to 2 weeks TRIAMCINOLONE ACETONIDE 0.1 % OINT 7048007 TRIAMCINOLONE ACETONIDE Inactive XANAX 0.5 MG TABS 1 tablet every 6 hrs prn XANAX 0.5 MG TABS 180570 ALPRAZOLAM Inactive METFORMIN HCL 500 MG TABS 1 PO BID METFORMIN HCL 500 MG TABS 029510 METFORMIN HCL Inactive SIMVASTATIN 40 MG TABS Take one by mouth daily SIMVASTATIN 40 MG TABS 583250 SIMVASTATIN Inactive VENLAFAXINE HCL 75 MG TABS 1 po BID VENLAFAXINE HCL 75 MG TABS 070290 VENLAFAXINE HCL Inactive VENLAFAXINE HCL 75 MG TABS 1 po BID VENLAFAXINE HCL 75 MG TABS 501903 VENLAFAXINE HCL Inactive VENLAFAXINE HCL 37.5 MG TABS 1 po BID VENLAFAXINE HCL 37.5 MG TABS 450430 VENLAFAXINE HCL Inactive LORTAB 5 5-500 MG TABS 1/2 to 1 tablet by mouth every 4 hours as needed for pain LORTAB 5 5-500 MG TABS HYDROCODONE- ACETAMINOPHEN Inactive LORTAB 5 5-500 MG TABS 1/2 to 1 tablet by mouth every 4 hours as needed for pain LORTAB 5 5-500 MG TABS HYDROCODONE- ACETAMINOPHEN Inactive TRAMADOL HCL 50 MG TABS 1 tablets every 6 hours as needed for pain TRAMADOL HCL 50 MG TABS 191306 TRAMADOL HCL Inactive HYDROCODONE-ACETAMINOPHEN 5-500 MG TABS take one po Q 4-6 hours prn HYDROCODONE-ACETAMINOPHEN 5-500 MG TABS HYDROCODONE- ACETAMINOPHEN Inactive DICLOFENAC SODIUM 50 MG TBEC 1 tablet by mouth three times a day as needed DICLOFENAC SODIUM 50 MG TBEC 949848 DICLOFENAC SODIUM Inactive AUGMENTIN 875-125 MG TAB 1 tab by mouth twice daily with food AUGMENTIN 875-125 MG TAB 042393 AMOXICILLIN-POT CLAVULANATE Inactive LAMISIL 250 MG TAB 1 po qd LAMISIL 250 MG TAB 460246 TERBINAFINE HCL Inactive MELATONIN 5 MG TABS Take one by mouth daily MELATONIN 5 MG TABS 123747 MELATONIN Inactive GABAPENTIN 100 MG CAPS 1 po bid GABAPENTIN 100 MG CAPS 028878 GABAPENTIN Inactive ZITHROMAX 250 MG TAB 2 po today, then 1 po q days 2-5 ZITHROMAX 250 MG TAB 6212878 AZITHROMYCIN Inactive SUPER B COMPLEX/VITAMIN C TABS 1 qd SUPER B COMPLEX/ VITAMIN C TABS 26136172285 B COMPLEX-C Inactive REQUIP 2 MG TABS Take one tablet at bedtime prn REQUIP 2 MG TABS 905165 ROPINIROLE HCL Inactive FLONASE 50 MCG/ACT SUSP 1 spray each nostril twice daily until bottle empty FLONASE 50 MCG/ACT SUSP FLUTICASONE PROPIONATE Inactive VENTOLIN HFA 108 (90 BASE) MCG/ACT AERS 1-2 puffs every 4 hours if needed for cough/congestion VENTOLIN HFA 108 (90 BASE) MCG/ACT AERS ALBUTEROL SULFATE Inactive HYDROCODONE-ACETAMINOPHEN 5-325 MG TABS 1 tab by mouth every 6 hours as needed for pain HYDROCODONE-ACETAMINOPHEN 5-325 MG TABS 914671 HYDROCODONE-ACETAMINOPHEN Inactive FENOFIBRATE 145 MG TABS 1 po qd FENOFIBRATE 145 MG TABS 442958 FENOFIBRATE Inactive OMEPRAZOLE 20 MG TBEC 1 PO 30 MIN BEFORE 1ST MEAL OMEPRAZOLE 20 MG TBEC 255352 OMEPRAZOLE Inactive TRUERESULT BLOOD GLUCOSE W/DEVICE KIT use to test blood sugar tid dx: 250.00 TRUERESULT BLOOD GLUCOSE W/DEVICE KIT BLOOD GLUCOSE MONITORING SUPPL Inactive TRUERESULT BLOOD GLUCOSE W/DEVICE KIT test blood sugar twice daily dx 250.00 TRUERESULT BLOOD GLUCOSE W/DEVICE KIT BLOOD GLUCOSE MONITORING SUPPL Inactive TRUETEST TEST STRP test blood sugar three times daily dx: 250.00 TRUETEST TEST STRP GLUCOSE BLOOD Inactive TRUETEST TEST INVITR STRP test blood sugar twice daily. DX 250.0 TRUETEST TEST INVITR STRP GLUCOSE BLOOD Inactive B-12 100 MCG TABS Take one by mouth daily B-12 100 MCG TABS CYANOCOBALAMIN Inactive EMBRACE BLOOD GLUCOSE TEST STRP test blood sugar twice daily DX 250.0 2014 EMBRACE BLOOD GLUCOSE TEST STRP GLUCOSE BLOOD Inactive ALIGN 4 MG CAPS 1 tid ALIGN 4 MG CAPS PROBIOTIC PRODUCT Inactive ACCU-CHEK FASTCLIX LANCETS MISC Use to check bloodsugar three times daily as needed ACCU-CHEK FASTCLIX LANCETS MISC 84656816615 LANCETS Inactive ACCU-CHEK KEYONA PLUS STRP Use for testing bloodsugars three times daily as needed ACCU-CHEK KEYONA PLUS STRP GLUCOSE BLOOD Inactive ACCU-CHEK KEYONA PLUS W/DEVICE KIT Use for testing bloodsugars three times daily as needed ACCU-CHEK KEYONA PLUS W/DEVICE KIT BLOOD GLUCOSE MONITORING SUPPL Inactive TRUEDRAW LANCING DEVICE MISC Test twice a day dx 250.0 TRUEDRAW LANCING DEVICE MISC LANCET DEVICES Inactive TRUEDRAW LANCING DEVICE MISC test blood sugar twice daily dx: 250.00 TRUEDRAW LANCING DEVICE MISC LANCET DEVICES Inactive Advance Directives Directive Description Start Date DISCUSSED WITH PATIENT -- NO DECISION MADE Immunizations Vaccine Administration Date Value Standard Description Seasonal influenza vaccine, injectable, containing preservative, for > 3 years old (Afluria, FluLaval, Fluzone, Fluvirin, Fluarix, Agriflu(>=18 yo)) Fluzone (>3 yrs.) [[id number]] Influenza, seasonal, injectable influenza immunization (Flu Vax) has been administered 02/22/2012 influenza virus vaccine, unspecified formulation Seasonal influenza vaccine, injectable, containing preservative, for > 3 years old (Afluria, FluLaval, Fluzone, Fluvirin, Fluarix, Agriflu(>=18 yo)) Fluzone (>3 yrs.) [[id number]] Influenza, seasonal, injectable Vital Signs Date Name [...] Magnesium - Chemistry sodium, serum 143 mmol/L 611-595 5115/01/10 carbon dioxide, venous blood 28.0 mmol/L 21.0-32.0 potassium, serum 4.5 mmol/L 3.5-5.2 chloride, serum 104 mmol/L 98-107 blood glucose 158 mg/dL 65-110 urea nitrogen, blood 23 mg/dL 7-18 creatinine, serum 1.06 mg/dL 0.55-1.30 alanine aminotransferase (SGPT), serum 42 U/L 12-78 aspartate aminotransferase (SGOT), serum 32 U/L 15-37 calcium, serum 9.3 mg/dL 8.5-10.1 bilirubin, serum, total 0.20 mg/dL 0.00-1.00 cholesterol, serum 177 mg/dL 666-110 7031/01/10 triglyceride, serum, fasting 320 mg/dL 30-200 HDL cholesterol, serum 46 mg/dL 32-96 LDL cholesterol, serum 67 mg/dL 0-130 Lab Report: HGBA1C - Chemistry hemoglobin A1C, blood, as % of total hemoglobin 7.1 % 4.3-6.0 hemoglobin A1C, blood, as % of total hemoglobin 7.4 % 4.3-6.0 sodium, serum 140 mmol/L 638-376 1871/09/07 potassium, serum 4.3 mmol/L 3.5-5.2 chloride, serum [...] <30 Encounters Code Encounter Date Provider Facility CPT-23796 Level 4 Est. Patient 09:08:17 STAMP CLERK Tu Landeros MD [facility] CPT-01806 Level 4 Est. Patient 14:40:19 CDT Tu Landeros MD [facility] CPT-13124 Level 4 Est. Patient 14:06:04 STAMP CLERK Tu Landeros MD [facility] CPT-39869 Level 3 Est. Patient 14:05:18 STAMP CLERK Tu Landeros MD [facility] CPT-66543 Level 3 Est. Patient 10:06:54 STAMP CLERK Miranda Suresh APRN [facility] CPT-90137 Level 4 Est. Patient 13:50:18 STAMP CLERK Tu Landeros MD [facility] CPT-20374 Level 3 Est. Patient 10:30:04 CDT Tu Landeros MD [facility] CPT-61089 Level 4 Est. Patient 11:03:38 CDT Tu Landeros MD [facility] CPT-48353 Level 3 Est. Patient 10:20:44 CDT Fab Morales DO [facility] CPT-64089 Level 4 Est. Patient 14:38:57 CDT Tu Landeros MD [facility] CPT-10758 Level 4 Est. Patient 14:27:39 STAMP CLERK Tu Landeros MD [facility] CPT-41739 Level 4 Est. Patient 09:45:25 CDT Tu Landeros MD [facility] CPT-10359 Level 4 Est. Patient 09:05:20 STAMP CLERK Tu Landeros MD [facility] CPT-42370 Level 4 Est. Patient 14:09:06 CDT Tu Landeros MD [facility] CPT-31949 Level 3 Est. Patient 13:36:54 CDT Tu Landeros MD [facility] CPT-04634 Level 3 Est. Patient 08:59:14 CDT Tu Landeros MD [facility] CPT-62902 Level 3 Est. Patient 13:48:35 CDT Fab Morales DO [facility] CPT-97935 Level 4 Est. Patient 10:05:48 CDT Tu Landeros MD [facility] CPT-68859 Level 3 Est. Patient 13:38:42 CDT Marek BANKS [facility] CPT-19112 Level 5 Est. Patient 08:08:39 CDT Jerrica FRANCIS [facility] CPT-02720 Level 4 Est. Patient 14:23:38 CDT Tu Landeros MD [facility] CPT-44722 Level 3 Est. Patient 11:44:04 CDT Tu Landeros MD [facility] CPT-16417 Level 3 Est. Patient 11:03:20 STAMP CLERK Tu Landeros MD [facility] CPT-00706 Level 3 Est. Patient 11:03:14 STAMP CLERK Tu Landeros MD [facility] CPT-25803 Level 3 Est. Patient 12:42:49 CDT Tu Landeros MD [facility] CPT-99702 Level 3 Est. Patient 11:52:06 CDT Tu Landeros MD [facility] CPT-68313 Level 3 Est. Patient 13:58:11 CDT Tu Landeros MD [facility] CPT-46815 Level 3 Est. Patient 17:50:07 CDT Fab Morales DO [facility] CPT-22323 Level 3 Est. Patient 12:06:29 CDT Elvira Cervantes MD PhD [facility] CPT-15741 Level 3 Est. Patient 15:50:32 CDT uT Landeros MD [facility] CPT-49875 Level 4 Est. Patient 16:08:29 CDT Tu Landeros MD [facility] CPT-71755 Level 3 Est. Patient 16:04:19 CDT Tu Landeros MD [facility] CPT-28528 Level 3 Est. Patient 11:22:30 STAMP CLERK Tu Landeros MD [facility] CPT-93478 Level 4 Est. Patient 16:24:02 STAMP CLERK Tu Landeros MD [facility] CPT-46341 Level 3 Est. Patient 17:21:23 STAMP CLERK Tu Landeros MD [facility] Procedures Code Procedure Name Date Entry Date Standard Description CPT-22468 Magnesium - LAB USE ONLY 11:14:20 STAMP CLERK CPT-73358 Lipid - LAB USE ONLY 11:14:20 STAMP CLERK CPT-17399 HGBA1C - LAB USE ONLY 11:14:20 STAMP CLERK CPT-91865 CMP - LAB USE ONLY 11:14:19 STAMP CLERK CPT-24804 CBC - LAB USE ONLY 11:14:19 STAMP CLERK CPT-11331 Venipuncture Draw Fee 11:14:18 STAMP CLERK CPT-79593 First Vx - Ix admin for Medicare patients 16:46:52 CDT CPT-93485 Fluzone Preservative Free Intramuscular Suspension 16:46 :51 CDT CPT-18275 CBC - LAB USE ONLY 17:14:46 CDT CPT-32950 HGBA1C - LAB USE ONLY 17:14:46 CDT CPT-71617 Venipuncture Draw Fee 17:14:46 CDT CPT-G0438 Initial Annual Wellness Exam 14:13:04 CDT CPT-15118 Breathing Tx 10:06:54 STAMP CLERK CPT-12909 Postop F/U Visit 10:02:45 CDT CPT-LR Lesion Removal 09:02:56 CDT CPT-JTINJ Asp/Joint Injection 15:51:27 STAMP CLERK CPT-OV Office Visit 15:52:02 STAMP CLERK CPT-OV Office Visit 15:45:11 CDT CPT-000 Give Zostavax 14:09:06 CDT CPT-27627 Administration single or combination vaccine inc oral 15 :19:04 CDT CPT-73294 Zoster Vaccine (Zostavax) 15:19:04 CDT CPT-58847 Administration single or combination vaccine inc oral 20 :51:03 CDT CPT-85839 Influenza split virus > age 3 20:51:03 CDT CPT-62130 No Charge Offi Visit 14:52:03 CDT CPT-OV Office Visit 14:57:43 CDT CPT-OV Office Visit 15:22:32 CDT CPT-31562 Administration single or combination vaccine inc oral 11 :33:15 CDT CPT-92774 Influenza split virus > age 3 11:33:15 CDT
--- OUTSIDE RECORDS SUMMARY | 2018-04-25 12:44 | XMS REPORT | Clinical Summary ---
Author Author Admin, SACHI Organization [employer] Address Unknown Phone Unavailable Allergies, Adverse Reactions, [...] Landeros MD Body Mass Index 50.0-59.9, adult POSTMENOPAUSAL BLEEDING ICD-627.1 Inactive Elvira Cervantes MD [...] MD Sebaceous cyst ICD-706.2 Tessa Landeros MD Upper respiratory infection, viral [...] SYRUP 5ml po q6hr PRN Cough PROMETHAZINE-CODEINE 12737858006 No Longer Active Tu Landeros MD Active AZITHROMYCIN 250 MG ORAL TABLET 2 po qd x 1, then 1 po qd x 4 AZITHROMYCIN 89498531534 No Longer Active Tu Landeros MD Active GUAIFENESIN ER 600 MG ORAL TABLET EXTENDED RELEASE 12 HOUR 1 twice a day as needed for congestion GUAIFENESIN 10345092657 No Longer Active Tu Landeros MD Active PREDNISONE 20 MG ORAL TABLET 2 po qd x 5 days PREDNISONE 50252277335 No Longer Active Tu Landeros MD Active FLUTICASONE PROPIONATE 50 MCG/ACT NASAL SUSPENSION 2 sprays/nostril qd PRN Congestion/Allergies FLUTICASONE PROPIONATE 85934835971 Active Tu Landeros MD Active NASONEX 50 MCG/ACT NASAL SUSPENSION 2 actuations in each nostril q day 07/15 MOMETASONE FUROATE 45239073975 No Longer Active Tu Landeros MD Active MAGNESIUM OXIDE 400 MG ORAL TABLET 1 po BID MAGNESIUM OXIDE 85536751147 Active Tu Landeros MD Active SIMVASTATIN 20 MG ORAL TABLET 0.5 po qHS SIMVASTATIN 66700616839 Active Tu Landeros MD Active DICLOFENAC SODIUM 75 MG ORAL TABLET DELAYED RELEASE 1 po BID PRN Pain DICLOFENAC SODIUM 62751771792 No Longer Active Tu Landeros MD Active GABAPENTIN 100 MG ORAL CAPSULE 1 po TID GABAPENTIN 16501163715 Active Tu Landeros MD Active DICLOFENAC SODIUM 50 MG ORAL TABLET DELAYED RELEASE 1 po BID PRN Pain DICLOFENAC SODIUM 56777681920 No Longer Active Tu Landeros MD Active CYCLOBENZAPRINE HCL 10 MG ORAL TABLET 1 po TID PRN Muscle Spasm CYCLOBENZAPRINE HCL 10400869208 No Longer Active Tu Landeros MD Active INVOKANA 100 MG ORAL TABLET 1 po qd CANAGLIFLOZIN 44724342181 Active Tu Landeros MD Active GLIPIZIDE 5 MG ORAL TABLET 1 po qd GLIPIZIDE 66940710096 No Longer Active Tu Landeros MD Active VENLAFAXINE HCL 75 MG ORAL TABLET 1 po BID VENLAFAXINE HCL 19348279951 Active Tu Landeros MD Active GLIMEPIRIDE 1 MG ORAL TABLET 1 po qd GLIMEPIRIDE 72489489655 No Longer Active Tu Landeros MD Active TRUE METRIX BLOOD GLUCOSE TEST IN VITRO STRIP Test blood sugar BID Dx: E11.9 GLUCOSE BLOOD 74451000652 Active Tu Landeros MD Active TRUE METRIX AIR GLUCOSE METER w/Device KIT Test blood glucose BID Dx: E11.9 BLOOD GLUCOSE MONITORING SUPPL 77707906948 Active Tu Landeros MD Active TRUETEST TEST IN VITRO STRIP test blood sugar twice daily. DX 250.0 GLUCOSE BLOOD 79039040794 No Longer Active Mirna Stanley LPN Active TRUEDRAW LANCING DEVICE test blood sugar twice daily dx: 250.00 LANCET DEVICES 24180561953 No Longer Active Mirna Stanley LPN Active ENALAPRIL MALEATE 20 MG ORAL TABLET 2 po qd ENALAPRIL MALEATE 12126649136 Active Tu Landeros MD Active SUPER B COMPLEX/VITAMIN C ORAL TABLET 1 qd B COMPLEX- C 69081789306 No Longer Active Tu Landeros MD Active ASPIRIN EC 81 MG ORAL TABLET DELAYED RELEASE 1 po qd ASPIRIN 95438543040 Active Tu Landeros MD Active GLUCOSAMINE 500 MG TABS 2 po qd GLUCOSAMINE Active Tu Landeros MD Active FISH OIL 1000 MG ORAL CAPSULE 1 po qd OMEGA-3 FATTY ACIDS 62533696586 Active Tu Landeros MD Active METFORMIN HCL 1000 MG ORAL TABLET 1 po BID METFORMIN HCL 29367638229 Active Tu Landeros MD Active KLOR-CON 10 10 MEQ ORAL TABLET EXTENDED RELEASE 2 po qd POTASSIUM CHLORIDE 13527303922 Active Tu Landeros MD Active FUROSEMIDE 40 MG ORAL TABLET 1 po qd FUROSEMIDE 96528499570 Active Tu Landeros MD Active REQUIP 2 MG ORAL TABLET 1 po qHS PRN Restless legs ROPINIROLE HCL 80646145513 Active Tu Landeros MD Active REQUIP 2 MG ORAL TABLET Take one tablet at bedtime prn ROPINIROLE HCL 31632669791 No Longer Active Tu Landeros MD Active VENTOLIN HFA 108 (90 Base) MCG/ACT INHALATION AEROSOL SOLUTION 1-2 puffs every 4 hours if needed for cough/congestion ALBUTEROL SULFATE 80296305135 No Longer Active Ambika Aden APRN Active ZITHROMAX 250 MG ORAL TABLET 2 po today, then 1 po q days 2-5 AZITHROMYCIN 42065902635 No Longer Active Miranda Farah APRN Active FLONASE 50 MCG/ACT NASAL SUSPENSION 1 spray each nostril twice daily until bottle empty FLUTICASONE PROPIONATE 54520119013 No Longer Active Tu Landeros MD Active COLACE 100 MG ORAL CAPSULE 1 po BID PRN Constipation DOCUSATE SODIUM 28196434106 Active Tu Landeros MD Active TRUERESULT BLOOD GLUCOSE w/Device KIT test blood sugar twice daily dx 250.00 BLOOD GLUCOSE MONITORING SUPPL 02060874522 No Longer Active Tu Landeros MD Active TRUEDRAW LANCING DEVICE Test twice a day dx 250.0 LANCET DEVICES 00215309128 No Longer Active Tu Landeros MD Active PREDNISONE 20 MG ORAL TABLET 2 tablets once daily for 2 days, then 1 tablet once daily for 2 days PREDNISONE 59659753799 No Longer Active Tu Landeros MD Active DICLOFENAC SODIUM 50 MG ORAL TABLET DELAYED RELEASE 1 tablet by mouth three times a day as needed DICLOFENAC SODIUM 37146994297 No Longer Active Fab Morales DO Active EMBRACE BLOOD GLUCOSE TEST IN VITRO STRIP test blood sugar twice daily DX 250.0 GLUCOSE BLOOD 75040716231 No Longer Active Tu Landeros MD Active TRUETEST TEST IN VITRO STRIP test blood sugar three times daily dx: 250.00 GLUCOSE BLOOD 26725219838 No Longer Active Suze VOGEL Active TRUERESULT BLOOD GLUCOSE w/Device KIT use to test blood sugar tid dx: 250.00 BLOOD GLUCOSE MONITORING SUPPL 49210003854 No Longer Active Suze VOGEL Active ALIGN 4 MG ORAL CAPSULE 1 tid PROBIOTIC PRODUCT 96400823690 No Longer Active Shaun Sy MD Active CIPRO 500 MG ORAL TABLET 1 bid x 14 days start 09-28-13 CIPROFLOXACIN HCL 38975119973 No Longer Active Shaun Sy MD Active TRAMADOL HCL 50 MG ORAL TABLET 1-2 tablets every 6 hours as needed for pain TRAMADOL HCL 94866448884 Active Tu Landeros MD Active HYDROCODONE-ACETAMINOPHEN 5-325 MG ORAL TABLET 1 tab by mouth every 6 hours as needed for pain HYDROCODONE-ACETAMINOPHEN 17262994623 No Longer Active Tu Landeros MD Active OMEPRAZOLE 20 MG ORAL CAPSULE DELAYED RELEASE 1 po q a.m. OMEPRAZOLE 71356491580 Active Fab Morales DO Active GABAPENTIN 100 MG ORAL CAPSULE 1 po bid GABAPENTIN 37930201289 No Longer Active Tu Landeros MD Active B-12 100 MCG ORAL TABLET Take one by mouth daily CYANOCOBALAMIN 14874420003 No Longer Active Tu Landeros MD Active BACTRIM DS 800-160 MG ORAL TABLET 1 bid x 14 day start 09-28-13 SULFAMETHOXAZOLE-TRIMETHOPRIM 53823434696 No Longer Active Tu Landeros MD Active CARVEDILOL 12.5 MG ORAL TABLET 1 po BID CARVEDILOL 62776289349 Active Tu Landeros MD Active TRILIPIX 135 MG ORAL CAPSULE DELAYED RELEASE 1 q hs CHOLINE FENOFIBRATE 85854486084 Active Tu Landeros MD Active FENOFIBRATE 145 MG ORAL TABLET 1 po qd FENOFIBRATE 21136593832 No Longer Active JASPREET Perez Active OMEPRAZOLE 20 MG ORAL TABLET DELAYED RELEASE 1 PO 30 MIN BEFORE 1ST MEAL 2010 OMEPRAZOLE 43890916945 No Longer Active JASPREET Perez Active SIMVASTATIN 40 MG ORAL TABLET Take one by mouth daily SIMVASTATIN 94554748999 No Longer Active JASPREET Perez Active VENLAFAXINE HCL 75 MG ORAL TABLET 1 po BID VENLAFAXINE HCL 80802174776 No Longer Active JASPREET Perez Active CIPRO 500 MG ORAL TABLET 1 tablet by mouth twice daily CIPROFLOXACIN HCL 85296091962 No Longer Active Tu Landeros MD Active VENLAFAXINE HCL 37.5 MG ORAL TABLET 1 po BID VENLAFAXINE HCL 16547218933 No Longer Active Suze VOGEL Active LAMISIL 250 MG ORAL TABLET 1 po qd TERBINAFINE HCL 23049782149 No Longer Active Tu Landeros MD Active LORTAB 5-500 MG ORAL TABLET 1/2 to 1 tablet by mouth every 4 hours as needed for pain HYDROCODONE-ACETAMINOPHEN 47503580605 No Longer Active Tu Landeros MD Active HYDROCODONE-ACETAMINOPHEN 5-500 MG ORAL TABLET take one po Q 4-6 hours prn HYDROCODONE-ACETAMINOPHEN 89367117782 No Longer Active Tu Landeros MD Active BACTRIM DS 800-160 MG ORAL TABLET 1 po BID x 7 days SULFAMETHOXAZOLE-TRIMETHOPRIM 65959804540 No Longer Active Tu Landeros MD Active VENLAFAXINE HCL 75 MG ORAL TABLET 1 po BID VENLAFAXINE HCL 88328909741 No Longer Active Elvira Cervantes MD PhD Active TRAMADOL HCL 50 MG ORAL TABLET 1 tablets every 6 hours as needed for pain TRAMADOL HCL 05165552219 No Longer Active Tu Landeros MD Active ACCU-CHEK FASTCLIX LANCETS Use to check bloodsugar three times daily as needed LANCETS 52023942629 No Longer Active Tu Landeros MD Active ACCU-CHEK KEYONA PLUS IN VITRO STRIP Use for testing bloodsugars three times daily as needed GLUCOSE BLOOD 69811139940 No Longer Active Tu Landeros MD Active ACCU-CHEK KEYONA PLUS w/Device KIT Use for testing bloodsugars three times daily as needed BLOOD GLUCOSE MONITORING SUPPL 57037794917 No Longer Active Tu Landeros MD Active SPIRONOLACTONE 25 MG ORAL TABLET 0.5 tablet by mouth daily 09/09 SPIRONOLACTONE 83400655966 No Longer Active Tu Landeros MD Active ALPRAZOLAM 0.5 MG ORAL TABLET 1 tab every 6hrs as needed ALPRAZOLAM 06563624259 No Longer Active Tu Landeros MD Active AUGMENTIN 875-125 MG ORAL TABLET 1 tab by mouth twice daily with food AMOXICILLIN-POT CLAVULANATE 24530022663 No Longer Active Tu Landeros MD Active PREDNISONE 20 MG ORAL TABLET 2 tabs daily for 3 days, 1 tab daily for 3 days, 1/2 tab daily for 2 days PREDNISONE 36388708091 No Longer Active Tu Landeros MD Active XANAX 0.5 MG ORAL TABLET 1 tablet every 6 hrs prn ALPRAZOLAM 27720037822 No Longer Active Tu Landeros MD Active PREDNISONE 20 MG ORAL TABLET 2 tabs daily for 3 days, 1 tab daily for 3 days, 1/2 tab daily for 2 days PREDNISONE 34159405107 No Longer Active Tu Landeros MD Active TRIAMCINOLONE ACETONIDE 0.1 % EXTERNAL OINTMENT Apply to affected areas TID for up to 2 weeks TRIAMCINOLONE ACETONIDE 50250229004 No Longer Active Tu Landeros MD Active LORTAB 5-500 MG ORAL TABLET 1/2 to 1 tablet by mouth every 4 hours as needed for pain HYDROCODONE-ACETAMINOPHEN 90498895426 No Longer Active Tu Landeros MD Active MULTIVITAMINS TABS Take one by mouth daily MULTIPLE VITAMIN 68921842485 No Longer Active Tu Landeros MD Active MELATONIN 5 MG ORAL TABLET Take one by mouth daily MELATONIN 80641307635 No Longer Active Tu Landeros MD Active SOMA 350 MG ORAL TABLET 1 po q 6 hours prn spasm CARISOPRODOL 57754827962 No Longer Active Tu Landeros MD Active MECLIZINE HCL 25 MG ORAL TABLET CHEWABLE 1 four times a day as needed for dizziness MECLIZINE HCL 92269662866 No Longer Active Fab Morales DO Active ANGEL BREEZE 2 TEST IN VITRO DISK test tid prn GLUCOSE BLOOD 44092294584 No Longer Active Negra Scott RN Active REGLAN 10 MG ORAL TABLET 1 po TID PRN Nausea METOCLOPRAMIDE HCL 61891410528 No Longer Active Tu Landeros MD Active METFORMIN HCL 500 MG ORAL TABLET 1 PO BID METFORMIN HCL 74043482061 No Longer Active Tu Landeros MD Active AMBIEN 10 MG ORAL TABLET 1 tab by mouth at bedtime as needed for sleep 06/10 ZOLPIDEM TARTRATE 11467197571 No Longer Active Tu Landeros MD Active FLUOXETINE HCL 40 MG ORAL CAPSULE 1 po q day FLUOXETINE HCL 20764959605 No Longer Active Mayra Terry Active TRILIPIX 135 MG ORAL CAPSULE DELAYED RELEASE 1 po qd CHOLINE FENOFIBRATE 22369475401 No Longer Active Tu Landeros MD Active AMBIEN 10 MG ORAL TABLET 1 tab by mouth at bedtime as needed for sleep 06/10 AMBIEN 10 MG ORAL TABLET 258939 ZOLPIDEM TARTRATE Inactive METFORMIN HCL 500 MG ORAL TABLET 1 PO BID METFORMIN HCL 500 MG ORAL TABLET 029095 METFORMIN HCL Inactive REGLAN 10 MG ORAL TABLET 1 po TID PRN Nausea REGLAN 10 MG ORAL TABLET 900667 METOCLOPRAMIDE HCL Inactive MECLIZINE HCL 25 MG ORAL TABLET CHEWABLE 1 four times a day as needed for dizziness MECLIZINE HCL 25 MG ORAL TABLET CHEWABLE 939850 MECLIZINE HCL Inactive SOMA 350 MG ORAL TABLET 1 po q 6 hours prn spasm SOMA 350 MG ORAL TABLET 989463 CARISOPRODOL Inactive MELATONIN 5 MG ORAL TABLET Take one by mouth daily MELATONIN 5 MG ORAL TABLET 954018 MELATONIN Inactive MULTIVITAMINS TABS Take one by mouth daily MULTIVITAMINS TABS MULTIPLE VITAMIN Inactive LORTAB 5-500 MG ORAL TABLET 1/2 to 1 tablet by mouth every 4 hours as needed for pain LORTAB 5-500 MG ORAL TABLET HYDROCODONE- ACETAMINOPHEN Inactive XANAX 0.5 MG ORAL TABLET 1 tablet every 6 hrs prn XANAX 0.5 MG ORAL TABLET 955928 ALPRAZOLAM Inactive AUGMENTIN 875-125 MG ORAL TABLET 1 tab by mouth twice daily with food AUGMENTIN 875-125 MG ORAL TABLET 514555 AMOXICILLIN-POT CLAVULANATE Inactive ALPRAZOLAM 0.5 MG ORAL TABLET 1 tab every 6hrs as needed ALPRAZOLAM 0.5 MG ORAL TABLET 714447 ALPRAZOLAM Inactive SPIRONOLACTONE 25 MG ORAL TABLET 0.5 tablet by mouth daily 09/09 SPIRONOLACTONE 25 MG ORAL TABLET 581939 SPIRONOLACTONE Inactive ACCU-CHEK KEYONA PLUS w/Device KIT [...] times daily as needed ACCU-CHEK FASTCLIX LANCETS 16733343784 LANCETS Inactive TRAMADOL HCL 50 MG ORAL TABLET 1 tablets every 6 hours as needed for pain TRAMADOL HCL 50 MG ORAL TABLET 871078 TRAMADOL HCL Inactive VENLAFAXINE HCL 75 MG ORAL TABLET 1 po BID VENLAFAXINE HCL 75 MG ORAL TABLET 942319 VENLAFAXINE HCL Inactive HYDROCODONE-ACETAMINOPHEN 5-500 MG ORAL TABLET take one po Q 4-6 hours prn HYDROCODONE-ACETAMINOPHEN 5-500 MG ORAL TABLET HYDROCODONE-ACETAMINOPHEN Inactive LORTAB 5-500 MG ORAL TABLET 1/2 to 1 tablet by mouth every 4 hours as needed for pain LORTAB 5-500 MG ORAL TABLET HYDROCODONE- ACETAMINOPHEN Inactive LAMISIL 250 MG ORAL TABLET 1 po qd LAMISIL 250 MG ORAL TABLET 662925 TERBINAFINE HCL Inactive VENLAFAXINE HCL 37.5 MG ORAL TABLET 1 po BID VENLAFAXINE HCL 37.5 MG ORAL TABLET 144843 VENLAFAXINE HCL Inactive CIPRO 500 MG ORAL TABLET 1 tablet by mouth twice daily CIPRO 500 MG ORAL TABLET 659249 CIPROFLOXACIN HCL Inactive VENLAFAXINE HCL 75 MG ORAL TABLET 1 po BID VENLAFAXINE HCL 75 MG ORAL TABLET 344841 VENLAFAXINE HCL Inactive SIMVASTATIN 40 MG ORAL TABLET Take one by mouth daily SIMVASTATIN 40 MG ORAL TABLET 102239 SIMVASTATIN Inactive OMEPRAZOLE 20 MG ORAL TABLET DELAYED RELEASE 1 PO 30 MIN BEFORE 1ST MEAL 2010 OMEPRAZOLE 20 MG ORAL TABLET DELAYED RELEASE 767256 OMEPRAZOLE Inactive FENOFIBRATE 145 MG ORAL TABLET 1 po qd FENOFIBRATE 145 MG ORAL TABLET 936946 FENOFIBRATE Inactive BACTRIM DS 800-160 MG ORAL TABLET 1 bid x 14 day start 09-28-13 BACTRIM DS 800-160 MG ORAL TABLET 117429 SULFAMETHOXAZOLE- TRIMETHOPRIM Inactive B-12 100 MCG ORAL TABLET Take one by mouth daily B-12 100 MCG ORAL TABLET CYANOCOBALAMIN Inactive GABAPENTIN 100 MG ORAL CAPSULE 1 po bid GABAPENTIN 100 MG ORAL CAPSULE 699048 GABAPENTIN Inactive HYDROCODONE-ACETAMINOPHEN 5-325 MG ORAL TABLET 1 tab by mouth every 6 hours as needed for pain HYDROCODONE-ACETAMINOPHEN 5-325 MG ORAL TABLET 257557 HYDROCODONE-ACETAMINOPHEN Inactive CIPRO 500 MG ORAL TABLET 1 bid x 14 days start 09-28-13 CIPRO 500 MG ORAL TABLET 295996 CIPROFLOXACIN HCL Inactive ALIGN 4 MG ORAL [...] SODIUM 50 MG ORAL TABLET DELAYED RELEASE 538530 DICLOFENAC SODIUM Inactive PREDNISONE 20 MG ORAL TABLET 2 tablets once daily for 2 days, then 1 tablet once daily for 2 days PREDNISONE 20 MG ORAL TABLET 569770 PREDNISONE Inactive TRUEDRAW LANCING DEVICE Test twice a day dx 250.0 TRUEDRAW LANCING DEVICE LANCET DEVICES Inactive TRUERESULT BLOOD GLUCOSE w/Device KIT test blood sugar twice daily dx 250.00 TRUERESULT BLOOD GLUCOSE w/Device KIT BLOOD GLUCOSE MONITORING SUPPL Inactive FLONASE 50 MCG/ACT NASAL SUSPENSION 1 spray each nostril twice daily until bottle empty FLONASE 50 MCG/ACT NASAL SUSPENSION 1448348 FLUTICASONE PROPIONATE Inactive VENTOLIN HFA 108 (90 Base) MCG/ACT INHALATION AEROSOL SOLUTION 1-2 puffs every 4 hours if needed for cough/congestion VENTOLIN HFA 108 (90 Base) MCG/ACT INHALATION AEROSOL SOLUTION ALBUTEROL SULFATE Inactive REQUIP 2 MG ORAL TABLET Take one tablet at bedtime prn REQUIP 2 MG ORAL TABLET 711054 ROPINIROLE HCL Inactive SUPER B COMPLEX/VITAMIN C ORAL TABLET 1 qd SUPER B COMPLEX/VITAMIN C ORAL TABLET 79706731869 B COMPLEX-C Inactive TRUEDRAW LANCING DEVICE test blood sugar twice daily dx: 250.00 TRUEDRAW LANCING DEVICE LANCET DEVICES Inactive TRUETEST TEST IN VITRO STRIP test blood sugar twice daily. DX 250.0 TRUETEST TEST IN VITRO STRIP GLUCOSE BLOOD Inactive CYCLOBENZAPRINE HCL 10 MG ORAL TABLET 1 po TID PRN Muscle Spasm CYCLOBENZAPRINE HCL 10 MG ORAL TABLET 745272 CYCLOBENZAPRINE HCL Inactive DICLOFENAC SODIUM 50 MG ORAL TABLET DELAYED RELEASE 1 po BID PRN Pain DICLOFENAC SODIUM 50 MG ORAL TABLET DELAYED RELEASE 401879 DICLOFENAC SODIUM Inactive DICLOFENAC SODIUM 75 MG ORAL TABLET DELAYED RELEASE 1 po BID PRN Pain DICLOFENAC SODIUM 75 MG ORAL TABLET DELAYED RELEASE 280614 DICLOFENAC SODIUM Inactive NASONEX 50 MCG/ACT NASAL SUSPENSION 2 actuations in each nostril q day 07/15 NASONEX 50 MCG/ACT NASAL SUSPENSION 6994854 MOMETASONE FUROATE Inactive GUAIFENESIN ER 600 MG ORAL TABLET EXTENDED RELEASE 12 HOUR 1 twice a day as needed for congestion GUAIFENESIN ER 600 MG ORAL TABLET EXTENDED RELEASE 12 HOUR GUAIFENESIN Inactive AZITHROMYCIN 250 MG ORAL TABLET 2 po qd x 1, then 1 po qd x 4 AZITHROMYCIN 250 MG ORAL TABLET 228399 AZITHROMYCIN Inactive PROMETHAZINE-CODEINE 6.25-10 MG/5ML ORAL SYRUP 5ml po q6hr PRN Cough PROMETHAZINE-CODEINE 6.25-10 MG/5ML ORAL SYRUP 982128 PROMETHAZINE-CODEINE Inactive TRIAMCINOLONE ACETONIDE 0.1 % EXTERNAL OINTMENT Apply to affected areas TID for up to 2 weeks TRIAMCINOLONE ACETONIDE 0.1 % EXTERNAL OINTMENT 2458968 TRIAMCINOLONE ACETONIDE Inactive PREDNISONE 20 MG ORAL TABLET 2 tabs daily for 3 days, 1 tab daily for 3 days, 1/2 tab daily for 2 days PREDNISONE 20 MG ORAL TABLET 956219 PREDNISONE Inactive PREDNISONE 20 MG ORAL TABLET 2 tabs daily for 3 days, 1 tab daily for 3 days, 1/2 tab daily for 2 days PREDNISONE 20 MG ORAL TABLET 078578 PREDNISONE Inactive BACTRIM DS 800-160 MG ORAL TABLET 1 po BID x 7 days BACTRIM DS 800-160 MG ORAL TABLET 974981 SULFAMETHOXAZOLE-TRIMETHOPRIM Inactive ZITHROMAX 250 MG ORAL TABLET 2 po today, then 1 po q days 2-5 ZITHROMAX 250 MG ORAL TABLET 265640 AZITHROMYCIN Inactive PREDNISONE 20 MG ORAL TABLET 2 po qd x 5 days PREDNISONE 20 MG ORAL TABLET 296282 PREDNISONE Inactive Advance Directives Directive Description Start Date DISCUSSED WITH PATIENT -- NO DECISION MADE Immunizations Vaccine Administration Date Value Standard Description Seasonal influenza vaccine, injectable, containing preservative, for > 3 years old (Afluria, FluLaval, Fluzone, Fluvirin, Fluarix, Agriflu(>=18 yo)) Fluzone (>3 yrs.) [[id number]] Influenza, seasonal, injectable influenza immunization (Flu Vax) has been administered 02/22/2012 influenza virus vaccine, unspecified formulation Seasonal influenza vaccine, injectable, containing preservative, for > 3 years old (Afluria, FluLaval, Fluzone, Fluvirin, Fluarix, Agriflu(>=18 yo)) Fluzone (>3 yrs.) [[id number]] Influenza, seasonal, injectable Vital Signs Date Name [...] ... - Chemistry sodium, serum 141 mmol/L 103-150 9283/01/16 carbon dioxide, venous blood 28.3 mmol/L 21.0-32.0 [...] 6.7 % 4.3-6.0 cholesterol, serum 106 mg/dL 226-622 1237/01/16 triglyceride, serum, fasting 173 mg/dL 30-200 HDL [...] 4.3-6.0 Encounters Code Encounter Date Provider Facility CPT-76195 Level 3 Est. Patient 09:11:32 CDT Tu Landeros MD [facility] CPT-43036 Level 3 Est. Patient 10:13:19 QUALITY RN Lesli Kellogg [facility] CPT-25075 Level 4 Est. Patient 13:42:02 QUALITY RN Tu Landeros MD [facility] CPT-99033 Level 3 Est. Patient 14:20:36 CDT Tu Landeros MD [facility] CPT-73705 Level 4 Est. Patient 14:28:34 CDT Tu Landeros MD [facility] CPT-84278 Level 3 Est. Patient 13:33:09 CDT Tu Landeros MD [facility] CPT-39346 Level 4 Est. Patient 14:29:21 CDT Tu Landeros MD [facility] CPT-73029 Level 4 Est. Patient 09:08:17 QUALITY RN Tu Landeros MD [facility] CPT-14991 Level 4 Est. Patient 14:40:19 CDT Tu Landeros MD [facility] CPT-97048 Level 4 Est. Patient 14:06:04 QUALITY RN Tu Landeros MD [facility] CPT-41736 Level 3 Est. Patient 14:05:18 QUALITY RN Tu Landeros MD [facility] CPT-15061 Level 3 Est. Patient 10:06:54 QUALITY RN Miranda Farah RN ICU [facility] CPT-05850 Level 4 Est. Patient 13:50:18 [facility] Patient 10:30:04 CDT Tu Landeros MD [facility] CPT-54717 Level 4 Est. Patient 11:03:38 CDT Tu Landeros MD [facility] CPT-15995 Level 3 Est. Patient 10:20:44 CDT Fab Morales DO [facility] CPT-43087 Level 4 Est. Patient 14:38:57 CDT Tu Landeros MD [facility] CPT-24558 Level 4 Est. Patient 14:27:39 QUALITY RN Tu Landeros MD [facility] CPT-73890 Level 4 Est. Patient 09:45:25 CDT Tu Landeros MD [facility] CPT-82611 Level 4 Est. Patient 09:05:20 QUALITY RN Tu Landeros MD [facility] CPT-77476 Level 4 Est. Patient 14:09:06 CDT Tu Landeros MD [facility] CPT-42641 Level 3 Est. Patient 13:36:54 CDT Tu Landeros MD [facility] CPT-33982 Level 3 Est. Patient 08:59:14 CDT Tu Landeros MD [facility] CPT-31430 Level 3 Est. Patient 13:48:35 CDT Fab Morales DO [facility] CPT-64042 Level 4 Est. Patient 10:05:48 CDT Tu Landeros MD [facility] CPT-48528 Level 3 Est. Patient 13:38:42 CDT Marek BANKS [facility] CPT-78443 Level 5 Est. Patient 08:08:39 CDT Jerrica FRANCIS [facility] CPT-62494 Level 4 Est. Patient 14:23:38 CDT Tu Landeros MD [facility] CPT-73582 Level 3 Est. Patient 11:44:04 CDT Tu Landeros MD [facility] CPT-98714 Level 3 Est. Patient 11:03:20 QUALITY RN Tu Landeros MD [facility] CPT-62004 Level 3 Est. Patient 11:03:14 QUALITY RN Tu Landeros MD [facility] CPT-86261 Level 3 Est. Patient 12:42:49 CDT Tu Landeros MD [facility] CPT-00929 Level 3 Est. Patient 11:52:06 CDT Tu Landeros MD [facility] CPT-64859 Level 3 Est. Patient 13:58:11 CDT Tu Landeros MD [facility] CPT-56824 Level 3 Est. Patient 17:50:07 CDT Fab Morales DO [facility] CPT-68298 Level 3 Est. Patient 12:06:29 CDT Elvira Cervantes MD, PhD [facility] CPT-27642 Level 3 Est. Patient 15:50:32 CDT Tu Landeros MD [facility] CPT-92448 Level 4 Est. Patient 16:08:29 CDT Tu Landeros MD [facility] CPT-94666 Level 3 Est. Patient 16:04:19 CDT Tu Landeros MD [facility] CPT-26300 Level 3 Est. Patient 11:22:30 QUALITY RN Tu Landeros MD [facility] CPT-82370 Level 4 Est. Patient 16:24:02 QUALITY RN Tu Landeros MD [facility] CPT-71467 Level 3 Est. Patient 17:21:23 QUALITY RN Tu Landeros MD [facility] Procedures Code Procedure Name Date Entry Date Standard Description CPT-04685 Shoulder, right, comp min 2V - XRAY USE ONLY 13:50:22 CDT CPT-G0009 Administration of Pneumococcal Vaccine 15:08:26 CDT CPT-10140 Prevnar 13 Intramuscular Suspension 15:08:26 CDT 10/08 CPT-G0439 Subsequent Annual Wellness Exam 14:29:22 CDT CPT-24913 Venipuncture Draw Fee 13:15:35 CDT CPT-82330 Magnesium - LAB USE ONLY 11:14:20 QUALITY RN CPT-94968 Lipid - LAB USE ONLY 11:14:20 QUALITY RN CPT-08103 HGBA1C - LAB USE ONLY 11:14:20 QUALITY RN CPT-93979 CMP - LAB USE ONLY 11:14:19 QUALITY RN CPT-85233 CBC - LAB USE ONLY 11:14:19 QUALITY RN CPT-32234 Venipuncture Draw Fee 11:14:18 QUALITY RN CPT-36083 First Vx - Ix admin for Medicare patients 16:46:52 CDT CPT-91060 Fluzone Preservative Free Intramuscular Suspension 16:46 :51 CDT CPT-14157 CBC - LAB USE ONLY 17:14:46 CDT CPT-15351 HGBA1C - LAB USE ONLY 17:14:46 CDT CPT-54504 Venipuncture Draw Fee 17:14:46 CDT CPT-G0438 Initial Annual Wellness Exam 14:13:04 CDT CPT-29183 Breathing Tx 10:06:54 QUALITY RN CPT-20486 Postop F/U Visit 10:02:45 CDT CPT-LR Lesion Removal 09:02:56 CDT CPT-JTINJ Asp/Joint Injection 15:51:27 QUALITY RN CPT-OV Office Visit 15:52:02 QUALITY RN CPT-OV Office Visit 15:45:11 CDT CPT-000 Give Zostavax 14:09:06 CDT CPT-01814 Administration single or combination vaccine inc oral 15 :19:04 CDT CPT-72756 Zoster Vaccine (Zostavax) 15:19:04 CDT CPT-96272 Administration single or combination vaccine inc oral 20 :51:03 CDT CPT-07032 Influenza split virus > age 3 20:51:03 CDT CPT-07864 No Charge Offi Visit 14:52:03 CDT CPT-OV Office Visit 14:57:43 CDT CPT-OV Office Visit 15:22:32 CDT CPT-49119 Administration single or combination vaccine inc oral 11 :33:15 CDT [id number] Influenza split virus > age 3 11:33:15 CDT
--- OUTSIDE RECORDS SUMMARY | 2018-04-25 12:45 | XMS REPORT | Clinical Summary ---
Author Author Admin, SACHI Organization [employer] Address Unknown Phone Unavailable Allergies, Adverse Reactions, [...] unspecified parts of trunk, complicated 879.7 Resolved uT Landeros MD Open wound of other and [...] unspecified site Upper respiratory infection, viral 465.9 Active Tu [...] Inactive Tu Landeros MD Sebaceous cyst ICD-706.2 Tessa Landeros [...] Generic Name NDC Status Provider Patient Instruction PREDNISONE 20 MG ORAL TABLET 2 po qd x 5 days PREDNISONE 89235313145 Active Tu Landeros MD Active PROMETHAZINE-CODEINE 6.25-10 MG/5ML ORAL SYRUP 5ml po q6hr PRN Cough PROMETHAZINE-CODEINE 76701820867 Active Tu Landeros MD Active FLUTICASONE PROPIONATE 50 MCG/ACT NASAL SUSPENSION 2 sprays/nostril qd PRN Congestion/Allergies FLUTICASONE PROPIONATE 02641799492 Active Tu Landeros MD Active NASONEX 50 MCG/ACT NASAL SUSPENSION 2 actuations in each nostril q day 07/15 MOMETASONE FUROATE 20271813228 No Longer Active Tu Landeros MD Active GUAIFENESIN ER 600 MG ORAL TABLET EXTENDED RELEASE 12 HOUR 1 twice a day as needed for congestion GUAIFENESIN 93192048198 Active Lesli Kellogg APRN Active MAGNESIUM OXIDE 400 MG ORAL TABLET 1 po BID MAGNESIUM OXIDE 21015984517 Active Tu Landeros MD Active SIMVASTATIN 20 MG ORAL TABLET 0.5 po qHS SIMVASTATIN 87156122764 Active Tu Landeros MD Active DICLOFENAC SODIUM 75 MG ORAL TABLET DELAYED RELEASE 1 po BID PRN Pain DICLOFENAC SODIUM 59680377149 No Longer Active Tu Landeros MD Active GABAPENTIN 100 MG ORAL CAPSULE 1 po TID GABAPENTIN 25025427108 Active Tu Landeros MD Active DICLOFENAC SODIUM 50 MG ORAL TABLET DELAYED RELEASE 1 po BID PRN Pain DICLOFENAC SODIUM 22834802658 No Longer Active Tu Landeros MD Active CYCLOBENZAPRINE HCL 10 MG ORAL TABLET 1 po TID PRN Muscle Spasm CYCLOBENZAPRINE HCL 73323680180 No Longer Active Tu Landeros MD Active INVOKANA 100 MG ORAL TABLET 1 po qd CANAGLIFLOZIN 18274628533 Active Tu Landeros MD Active GLIPIZIDE 5 MG ORAL TABLET 1 po qd GLIPIZIDE 62560766556 No Longer Active Tu Landeros MD Active VENLAFAXINE HCL 75 MG ORAL TABLET 1 po BID VENLAFAXINE HCL 46024825918 Active Tu Landeros MD Active GLIMEPIRIDE 1 MG ORAL TABLET 1 po qd GLIMEPIRIDE 65220187709 No Longer Active Tu Landeros MD Active TRUE METRIX BLOOD GLUCOSE TEST IN VITRO STRIP Test blood sugar BID Dx: E11.9 GLUCOSE BLOOD 53457481879 Active Tu Landeros MD Active TRUE METRIX AIR GLUCOSE METER w/Device KIT Test blood glucose BID Dx: E11.9 BLOOD GLUCOSE MONITORING SUPPL 98539475308 Active Tu Landeros MD Active TRUETEST TEST IN VITRO STRIP test blood sugar twice daily. DX 250.0 GLUCOSE BLOOD 40723358316 No Longer Active Mirna Stanley LPN Active TRUEDRAW LANCING DEVICE test blood sugar twice daily dx: 250.00 LANCET DEVICES 23303678959 No Longer Active Mirna Stanley LPN Active ENALAPRIL MALEATE 20 MG ORAL TABLET 2 po qd ENALAPRIL MALEATE 73318735248 Active Tu Landeros MD Active SUPER B COMPLEX/VITAMIN C ORAL TABLET 1 qd B COMPLEX- C 69721485268 No Longer Active Tu Landeros MD Active ASPIRIN EC 81 MG ORAL TABLET DELAYED RELEASE 1 po qd ASPIRIN 38644513112 Active Tu Landeros MD Active GLUCOSAMINE 500 MG TABS 2 po qd GLUCOSAMINE Active Tu Landeros MD Active FISH OIL 1000 MG ORAL CAPSULE 1 po qd OMEGA-3 FATTY ACIDS 46249907925 Active Tu Landeros MD Active METFORMIN HCL 1000 MG ORAL TABLET 1 po BID METFORMIN HCL 05053607229 Active Tu Landeros MD Active KLOR-CON 10 10 MEQ ORAL TABLET EXTENDED RELEASE 2 po qd POTASSIUM CHLORIDE 30664675437 Active Tu Landeros MD Active FUROSEMIDE 40 MG ORAL TABLET 1 po qd FUROSEMIDE 72182088992 Active Tu Landeros MD Active REQUIP 2 MG ORAL TABLET 1 po qHS PRN Restless legs ROPINIROLE HCL 76198953788 Active Tu Landeros MD Active REQUIP 2 MG ORAL TABLET Take one tablet at bedtime prn ROPINIROLE HCL 20411082321 No Longer Active Tu Landeros MD Active VENTOLIN HFA 108 (90 Base) MCG/ACT INHALATION AEROSOL SOLUTION 1-2 puffs every 4 hours if needed for cough/congestion ALBUTEROL SULFATE 82896729660 No Longer Active Ambika Aden APRN Active ZITHROMAX 250 MG ORAL TABLET 2 po today, then 1 po q days 2-5 AZITHROMYCIN 91795372769 No Longer Active Miranda Farah APRN Active FLONASE 50 MCG/ACT NASAL SUSPENSION 1 spray each nostril twice daily until bottle empty FLUTICASONE PROPIONATE 03267077281 No Longer Active Tu Landeros MD Active COLACE 100 MG ORAL CAPSULE 1 po BID PRN Constipation DOCUSATE SODIUM 75658994750 Active Tu Landeros MD Active TRUERESULT BLOOD GLUCOSE w/Device KIT test blood sugar twice daily dx 250.00 BLOOD GLUCOSE MONITORING SUPPL 04844505539 No Longer Active Tu Landeros MD Active TRUEDRAW LANCING DEVICE Test twice a day dx 250.0 LANCET DEVICES 24341585500 No Longer Active Tu Landeros MD Active PREDNISONE 20 MG ORAL TABLET 2 tablets once daily for 2 days, then 1 tablet once daily for 2 days PREDNISONE 36121805725 No Longer Active Tu Landeros MD Active DICLOFENAC SODIUM 50 MG ORAL TABLET DELAYED RELEASE 1 tablet by mouth three times a day as needed DICLOFENAC SODIUM 42555494001 No Longer Active Fab Morales DO Active EMBRACE BLOOD GLUCOSE TEST IN VITRO STRIP test blood sugar twice daily DX 250.0 GLUCOSE BLOOD 37821869078 No Longer Active Tu Landeros MD Active TRUETEST TEST IN VITRO STRIP test blood sugar three times daily dx: 250.00 GLUCOSE BLOOD 05463675057 No Longer Active Suze Corey VOGEL Active TRUERESULT BLOOD GLUCOSE w/Device KIT use to test blood sugar tid dx: 250.00 BLOOD GLUCOSE MONITORING SUPPL 69306731511 No Longer Active Suze Corey VOGEL Active ALIGN 4 MG ORAL CAPSULE 1 tid PROBIOTIC PRODUCT 56556288401 No Longer Active Shaun Sy MD Active CIPRO 500 MG ORAL TABLET 1 bid x 14 days start 09-28-13 CIPROFLOXACIN HCL 49501679619 No Longer Active Shaun Sy MD Active TRAMADOL HCL 50 MG ORAL TABLET 1-2 tablets every 6 hours as needed for pain TRAMADOL HCL 33708289078 Active Tu Landeros MD Active HYDROCODONE-ACETAMINOPHEN 5-325 MG ORAL TABLET 1 tab by mouth every 6 hours as needed for pain HYDROCODONE-ACETAMINOPHEN 22083443513 No Longer Active Tu Landeros MD Active OMEPRAZOLE 20 MG ORAL CAPSULE DELAYED RELEASE 1 po q a.m. OMEPRAZOLE 74310834410 Active Fab Morales DO Active GABAPENTIN 100 MG ORAL CAPSULE 1 po bid GABAPENTIN 58801370085 No Longer Active Tu Landeros MD Active B-12 100 MCG ORAL TABLET Take one by mouth daily CYANOCOBALAMIN 80520482123 No Longer Active Tu Landeros MD Active BACTRIM DS 800-160 MG ORAL TABLET 1 bid x 14 day start 14 SULFAMETHOXAZOLE-TRIMETHOPRIM 40776087360 No Longer Active Tu Landeros MD Active CARVEDILOL 12.5 MG ORAL TABLET 1 po BID CARVEDILOL 12569962357 Active Tu Landeros MD Active TRILIPIX 135 MG ORAL CAPSULE DELAYED RELEASE 1 q hs CHOLINE FENOFIBRATE 14861571794 Active Tu Landeros MD Active FENOFIBRATE 145 MG ORAL TABLET 1 po qd FENOFIBRATE 92725209657 No Longer Active JASPREET Perez Active OMEPRAZOLE 20 MG ORAL TABLET DELAYED RELEASE 1 PO 30 MIN BEFORE 1ST MEAL 2010 OMEPRAZOLE 53463360614 No Longer Active JASPREET Perez Active SIMVASTATIN 40 MG ORAL TABLET Take one by mouth daily SIMVASTATIN 77995906921 No Longer Active JASPREET Perez Active VENLAFAXINE HCL 75 MG ORAL TABLET 1 po BID VENLAFAXINE HCL 78424836790 No Longer Active JASPREET Perez Active CIPRO 500 MG ORAL TABLET 1 tablet by mouth twice daily CIPROFLOXACIN HCL 46510679697 No Longer Active Tu Landeros MD Active VENLAFAXINE HCL 37.5 MG ORAL TABLET 1 po BID VENLAFAXINE HCL 93599156724 No Longer Active Suze VOGEL Active LAMISIL 250 MG ORAL TABLET 1 po qd TERBINAFINE HCL 07848633586 No Longer Active Tu Landeros MD Active LORTAB 5-500 MG ORAL TABLET 1/2 to 1 tablet by mouth every 4 hours as needed for pain HYDROCODONE-ACETAMINOPHEN 49544156312 No Longer Active Tu Landeros MD Active HYDROCODONE-ACETAMINOPHEN 5-500 MG ORAL TABLET take one po Q 4-6 hours prn HYDROCODONE-ACETAMINOPHEN 77017389029 No Longer Active Tu Landeros MD Active BACTRIM DS 800-160 MG ORAL TABLET 1 po BID x 7 days SULFAMETHOXAZOLE-TRIMETHOPRIM 43172715610 No Longer Active Tu Landeros MD Active VENLAFAXINE HCL 75 MG ORAL TABLET 1 po BID VENLAFAXINE HCL 23014027896 No Longer Active Elvira Cervantes MD PhD Active TRAMADOL HCL 50 MG ORAL TABLET 1 tablets every 6 hours as needed for pain TRAMADOL HCL 71861084507 No Longer Active Tu Landeros MD Active ACCU-CHEK FASTCLIX LANCETS Use to check bloodsugar three times daily as needed LANCETS 06262446924 No Longer Active Tu Landeros MD Active ACCU-CHEK KEYONA PLUS IN VITRO STRIP Use for testing bloodsugars three times daily as needed GLUCOSE BLOOD 06942658257 No Longer Active Tu Landeros MD Active ACCU-CHEK KEYONA PLUS w/Device KIT Use for testing bloodsugars three times daily as needed BLOOD GLUCOSE MONITORING SUPPL 97081151056 No Longer Active Tu Landeros MD Active SPIRONOLACTONE 25 MG ORAL TABLET 0.5 tablet by mouth daily 09/09 SPIRONOLACTONE 01654567994 No Longer Active Tu Landeros MD Active ALPRAZOLAM 0.5 MG ORAL TABLET 1 tab every 6hrs as needed ALPRAZOLAM 59163737062 No Longer Active Tu Landeros MD Active AUGMENTIN 875-125 MG ORAL TABLET 1 tab by mouth twice daily with food AMOXICILLIN-POT CLAVULANATE 50825456885 No Longer Active Tu Landeros MD Active PREDNISONE 20 MG ORAL TABLET 2 tabs daily for 3 days, 1 tab daily for 3 days, 1/2 tab daily for 2 days PREDNISONE 58866376867 No Longer Active Tu Landeros MD Active XANAX 0.5 MG ORAL TABLET 1 tablet every 6 hrs prn ALPRAZOLAM 82788167539 No Longer Active Tu Landeros MD Active PREDNISONE 20 MG ORAL TABLET 2 tabs daily for 3 days, 1 tab daily for 3 days, 1/2 tab daily for 2 days PREDNISONE 76431203718 No Longer Active Tu Landeros MD Active TRIAMCINOLONE ACETONIDE 0.1 % EXTERNAL OINTMENT Apply to affected areas TID for up to 2 weeks TRIAMCINOLONE ACETONIDE 27494845214 No Longer Active Tu Landeros MD Active LORTAB 5-500 MG ORAL TABLET 1/2 to 1 tablet by mouth every 4 hours as needed for pain HYDROCODONE-ACETAMINOPHEN 40170321149 No Longer Active Tu Landeros MD Active MULTIVITAMINS TABS Take one by mouth daily MULTIPLE VITAMIN 07860247732 No Longer Active Tu Landeros MD Active MELATONIN 5 MG ORAL TABLET Take one by mouth daily MELATONIN 71339481838 No Longer Active Tu Landeros MD Active SOMA 350 MG ORAL TABLET 1 po q 6 hours prn spasm CARISOPRODOL 63195900266 No Longer Active Tu Landeros MD Active MECLIZINE HCL 25 MG ORAL TABLET CHEWABLE 1 four times a day as needed for dizziness MECLIZINE HCL 14361475922 No Longer Active Fab Morales DO Active ANGEL BREEZE 2 TEST IN VITRO DISK test tid prn GLUCOSE BLOOD 07493460643 No Longer Active Negra Scott RN Active REGLAN 10 MG ORAL TABLET 1 po TID PRN Nausea METOCLOPRAMIDE HCL 82101873051 No Longer Active Tu Landeros MD Active METFORMIN HCL 500 MG ORAL TABLET 1 PO BID METFORMIN HCL 92991763487 No Longer Active Tu Landeros MD Active AMBIEN 10 MG ORAL TABLET 1 tab by mouth at bedtime as needed for sleep 06/10 ZOLPIDEM TARTRATE 10649812673 No Longer Active Tu Landeros MD Active FLUOXETINE HCL 40 MG ORAL CAPSULE 1 po q day FLUOXETINE HCL 44884105868 No Longer Active Mayra Terry Active TRILIPIX 135 MG ORAL CAPSULE DELAYED RELEASE 1 po qd CHOLINE FENOFIBRATE 79576573166 No Longer Active Tu Landeros MD Active AMBIEN 10 MG ORAL TABLET 1 tab by mouth at bedtime as needed for sleep 06/10 AMBIEN 10 MG ORAL TABLET 460696 ZOLPIDEM TARTRATE Inactive METFORMIN HCL 500 MG ORAL TABLET 1 PO BID METFORMIN HCL 500 MG ORAL TABLET 025425 METFORMIN HCL Inactive REGLAN 10 MG ORAL TABLET 1 po TID PRN Nausea REGLAN 10 MG ORAL TABLET 231472 METOCLOPRAMIDE HCL Inactive MECLIZINE HCL 25 MG ORAL TABLET CHEWABLE 1 four times a day as needed for dizziness MECLIZINE HCL 25 MG ORAL TABLET CHEWABLE 961484 MECLIZINE HCL Inactive SOMA 350 MG ORAL TABLET 1 po q 6 hours prn spasm SOMA 350 MG ORAL TABLET 870750 CARISOPRODOL Inactive MELATONIN 5 MG ORAL TABLET Take one by mouth daily MELATONIN 5 MG ORAL TABLET 448642 MELATONIN Inactive MULTIVITAMINS TABS Take one by mouth daily MULTIVITAMINS TABS MULTIPLE VITAMIN Inactive LORTAB 5-500 MG ORAL TABLET 1/2 to 1 tablet by mouth every 4 hours as needed for pain LORTAB 5-500 MG ORAL TABLET HYDROCODONE- ACETAMINOPHEN Inactive XANAX 0.5 MG ORAL TABLET 1 tablet every 6 hrs prn XANAX 0.5 MG ORAL TABLET 791843 ALPRAZOLAM Inactive AUGMENTIN 875-125 MG ORAL TABLET 1 tab by mouth twice daily with food AUGMENTIN 875-125 MG ORAL TABLET 527834 AMOXICILLIN-POT CLAVULANATE Inactive ALPRAZOLAM 0.5 MG ORAL TABLET 1 tab every 6hrs as needed ALPRAZOLAM 0.5 MG ORAL TABLET 365457 ALPRAZOLAM Inactive SPIRONOLACTONE 25 MG ORAL TABLET 0.5 tablet by mouth daily 09/09 SPIRONOLACTONE 25 MG ORAL TABLET 870241 SPIRONOLACTONE Inactive ACCU-CHEK KEYONA PLUS w/Device KIT [...] times daily as needed ACCU-CHEK FASTCLIX LANCETS 98593024985 LANCETS Inactive TRAMADOL HCL 50 MG ORAL TABLET 1 tablets every 6 hours as needed for pain TRAMADOL HCL 50 MG ORAL TABLET 577696 TRAMADOL HCL Inactive VENLAFAXINE HCL 75 MG ORAL TABLET 1 po BID VENLAFAXINE HCL 75 MG ORAL TABLET 280434 VENLAFAXINE HCL Inactive HYDROCODONE-ACETAMINOPHEN 5-500 MG ORAL TABLET take one po Q 4-6 hours prn HYDROCODONE-ACETAMINOPHEN 5-500 MG ORAL TABLET 865222 HYDROCODONE-ACETAMINOPHEN Inactive LORTAB 5-500 MG ORAL TABLET 1/2 to 1 tablet by mouth every 4 hours as needed for pain LORTAB 5-500 MG ORAL TABLET HYDROCODONE- ACETAMINOPHEN Inactive LAMISIL 250 MG ORAL TABLET 1 po qd LAMISIL 250 MG ORAL TABLET 366218 TERBINAFINE HCL Inactive VENLAFAXINE HCL 37.5 MG ORAL TABLET 1 po BID VENLAFAXINE HCL 37.5 MG ORAL TABLET 745581 VENLAFAXINE HCL Inactive CIPRO 500 MG ORAL TABLET 1 tablet by mouth twice daily CIPRO 500 MG ORAL TABLET 548038 CIPROFLOXACIN HCL Inactive VENLAFAXINE HCL 75 MG ORAL TABLET 1 po BID VENLAFAXINE HCL 75 MG ORAL TABLET 180768 VENLAFAXINE HCL Inactive SIMVASTATIN 40 MG ORAL TABLET Take one by mouth daily SIMVASTATIN 40 MG ORAL TABLET 822474 SIMVASTATIN Inactive OMEPRAZOLE 20 MG ORAL TABLET DELAYED RELEASE 1 PO 30 MIN BEFORE 1ST MEAL 2010 OMEPRAZOLE 20 MG ORAL TABLET DELAYED RELEASE 787501 OMEPRAZOLE Inactive FENOFIBRATE 145 MG ORAL TABLET 1 po qd FENOFIBRATE 145 MG ORAL TABLET 246736 FENOFIBRATE Inactive BACTRIM DS 800-160 MG ORAL TABLET 1 bid x 14 day start 09-28-13 BACTRIM DS 800-160 MG ORAL TABLET 261412 SULFAMETHOXAZOLE- TRIMETHOPRIM Inactive B-12 100 MCG ORAL TABLET Take one by mouth daily B-12 100 MCG ORAL TABLET CYANOCOBALAMIN Inactive GABAPENTIN 100 MG ORAL CAPSULE 1 po bid GABAPENTIN 100 MG ORAL CAPSULE 176892 GABAPENTIN Inactive HYDROCODONE-ACETAMINOPHEN 5-325 MG ORAL TABLET 1 tab by mouth every 6 hours as needed for pain HYDROCODONE-ACETAMINOPHEN 5-325 MG ORAL TABLET 767874 HYDROCODONE-ACETAMINOPHEN Inactive CIPRO 500 MG ORAL TABLET 1 bid x 14 days start 09-28-13 CIPRO 500 MG ORAL TABLET 584897 CIPROFLOXACIN HCL Inactive ALIGN 4 MG ORAL [...] SODIUM 50 MG ORAL TABLET DELAYED RELEASE 257739 DICLOFENAC SODIUM Inactive PREDNISONE 20 MG ORAL TABLET 2 tablets once daily for 2 days, then 1 tablet once daily for 2 days PREDNISONE 20 MG ORAL TABLET 296279 PREDNISONE Inactive TRUEDRAW LANCING DEVICE Test twice a day dx 250.0 TRUEDRAW LANCING DEVICE LANCET DEVICES Inactive TRUERESULT BLOOD GLUCOSE w/Device KIT test blood sugar twice daily dx 250.00 TRUERESULT BLOOD GLUCOSE w/Device KIT BLOOD GLUCOSE MONITORING SUPPL Inactive FLONASE 50 MCG/ACT NASAL SUSPENSION 1 spray each nostril twice daily until bottle empty FLONASE 50 MCG/ACT NASAL SUSPENSION 4098298 FLUTICASONE PROPIONATE Inactive VENTOLIN HFA 108 (90 Base) MCG/ACT INHALATION AEROSOL SOLUTION 1-2 puffs every 4 hours if needed for cough/congestion VENTOLIN HFA 108 (90 Base) MCG/ACT INHALATION AEROSOL SOLUTION ALBUTEROL SULFATE Inactive REQUIP 2 MG ORAL TABLET Take one tablet at bedtime prn REQUIP 2 MG ORAL TABLET 733778 ROPINIROLE HCL Inactive SUPER B COMPLEX/VITAMIN C ORAL TABLET 1 qd SUPER B COMPLEX/VITAMIN C ORAL TABLET 24895444474 B COMPLEX-C Inactive TRUEDRAW LANCING DEVICE test blood sugar twice daily dx: 250.00 TRUEDRAW LANCING DEVICE LANCET DEVICES Inactive TRUETEST TEST IN VITRO STRIP test blood sugar twice daily. DX 250.0 TRUETEST TEST IN VITRO STRIP GLUCOSE BLOOD Inactive CYCLOBENZAPRINE HCL 10 MG ORAL TABLET 1 po TID PRN Muscle Spasm CYCLOBENZAPRINE HCL 10 MG ORAL TABLET 710031 CYCLOBENZAPRINE HCL Inactive DICLOFENAC SODIUM 50 MG ORAL TABLET DELAYED RELEASE 1 po BID PRN Pain DICLOFENAC SODIUM 50 MG ORAL TABLET DELAYED RELEASE 261673 DICLOFENAC SODIUM Inactive DICLOFENAC SODIUM 75 MG ORAL TABLET DELAYED RELEASE 1 po BID PRN Pain DICLOFENAC SODIUM 75 MG ORAL TABLET DELAYED RELEASE 488865 DICLOFENAC SODIUM Inactive NASONEX 50 MCG/ACT NASAL SUSPENSION 2 actuations in each nostril q day 07/15 NASONEX 50 MCG/ACT NASAL SUSPENSION 6140220 MOMETASONE FUROATE Inactive TRIAMCINOLONE ACETONIDE 0.1 % EXTERNAL OINTMENT Apply to affected areas TID for up to 2 weeks TRIAMCINOLONE ACETONIDE 0.1 % EXTERNAL OINTMENT 8369967 TRIAMCINOLONE ACETONIDE Inactive PREDNISONE 20 MG ORAL TABLET 2 tabs daily for 3 days, 1 tab daily for 3 days, 1/2 tab daily for 2 days PREDNISONE 20 MG ORAL TABLET 235985 PREDNISONE Inactive PREDNISONE 20 MG ORAL TABLET 2 tabs daily for 3 days, 1 tab daily for 3 days, 1/2 tab daily for 2 days PREDNISONE 20 MG ORAL TABLET 419905 PREDNISONE Inactive BACTRIM DS 800-160 MG ORAL TABLET 1 po BID x 7 days BACTRIM DS 800-160 MG ORAL TABLET 547297 SULFAMETHOXAZOLE-TRIMETHOPRIM Inactive ZITHROMAX 250 MG ORAL TABLET 2 po today, then 1 po q days 2-5 ZITHROMAX 250 MG ORAL TABLET 837432 AZITHROMYCIN Inactive Advance Directives Directive Description Start Date DISCUSSED WITH PATIENT -- NO DECISION MADE Immunizations Vaccine Administration Date Value Standard Description Seasonal influenza vaccine, injectable, containing preservative, for > 3 years old (Afluria, FluLaval, Fluzone, Fluvirin, Fluarix, Agriflu(>=18 yo)) Fluzone (>3 yrs.) [RYS445] Influenza, seasonal, injectable influenza immunization (Flu Vax) has been administered 02/22/2012 influenza virus vaccine, unspecified formulation Seasonal influenza vaccine, injectable, containing preservative, for > 3 years old (Afluria, FluLaval, Fluzone, Fluvirin, Fluarix, Agriflu(>=18 yo)) Fluzone (>3 yrs.) [UUT405] Influenza, seasonal, injectable Vital Signs Date Name Value Unit Range Description blood pressure, diastolic 60 mm[Hg] BP ac [...] ... - Chemistry sodium, serum 141 mmol/L 816-081 4562/01/16 carbon dioxide, venous blood 28.3 mmol/L 21.0-32.0 [...] 6.7 % 4.3-6.0 cholesterol, serum 106 mg/dL 613-123 7054/01/16 triglyceride, serum, fasting 173 mg/dL 30-200 HDL [...] A1c - Chemistry cholesterol, serum 135 mg/dL 284-036 3399/05/17 HDL cholesterol, serum 41 mg/dL > OR=46 triglyceride, serum, fasting 206 mg/dL <150 LDL cholesterol, serum 53 MG/DL (CALC) mg/dL <130 cholesterol/HDL ratio, serum 3.3 (calc) < OR=5.0 Lab Report: HGBA1C - Chemistry hemoglobin A1C, blood, as % of total hemoglobin 6.5 % 4.3-6.0 Encounters Code Encounter Date Provider Facility CPT-58488 Level 3 Est. Patient 10:13:19 PACKAGING ASSEMBLER Lesli Kellogg APRN [facility] CPT-25689 Level 4 Est. Patient 13:42:02 PACKAGING ASSEMBLER Tu Landeros MD [facility] CPT-58145 Level 3 Est. Patient 14:20:36 CDT Tu Landeros MD [facility] CPT-56747 Level 4 Est. Patient 14:28:34 CDT Tu Landeros MD [facility] CPT-80165 Level 3 Est. Patient 13:33:09 CDT Tu Landeros MD [facility] CPT-13701 Level 4 Est. Patient 14:29:21 CDT Tu Landeros MD [facility] CPT-55160 Level 4 Est. Patient 09:08:17 PACKAGING ASSEMBLER Tu Landeros MD [facility] CPT-93142 Level 4 Est. Patient 14:40:19 CDT Tu Landeros MD [facility] CPT-66272 Level 4 Est. Patient 14:06:04 PACKAGING ASSEMBLER Tu Landeros MD [facility] CPT-34098 Level 3 Est. Patient 14:05:18 PACKAGING ASSEMBLER Tu Landeros MD [facility] CPT-58617 Level 3 Est. Patient 10:06:54 PACKAGING ASSEMBLER Miranda Farah APRN [facility] CPT-37645 Level 4 Est. Patient 13:50:18 PACKAGING ASSEMBLER Tu Landeros MD [facility] CPT-53768 Level 3 Est. Patient 10:30:04 CDT Tu Landeros MD [facility] CPT-63008 Level 4 Est. Patient 11:03:38 CDT Tu Landeros MD [facility] CPT-51803 Level 3 Est. Patient 10:20:44 CDT Fab Morales DO [facility] CPT-44552 Level 4 Est. Patient 14:38:57 CDT Tu Landeros MD [facility] CPT-03716 Level 4 Est. Patient 14:27:39 PACKAGING ASSEMBLER Tu Landeros MD [facility] CPT-28126 Level 4 Est. Patient 09:45:25 CDT Tu Landeros MD [facility] CPT-66043 Level 4 Est. Patient 09:05:20 PACKAGING ASSEMBLER Tu Landeros MD [facility] CPT-97379 Level 4 Est. Patient 14:09:06 CDT Tu Landeros MD [facility] CPT-41135 Level 3 Est. Patient 13:36:54 CDT Tu Landeros MD [facility] CPT-62071 Level 3 Est. Patient 08:59:14 CDT Tu Landeros MD [facility] CPT-96610 Level 3 Est. Patient 13:48:35 CDT Fab Morales DO [facility] CPT-51552 Level 4 Est. Patient 10:05:48 CDT Tu Landeros MD [facility] CPT-80655 Level 3 Est. Patient 13:38:42 CDT Marek BANKS [facility] CPT-08881 Level 5 Est. Patient 08:08:39 CDT Jerrica FRANCIS [facility] CPT-69193 Level 4 Est. Patient 14:23:38 CDT Tu Landeros MD [facility] CPT-54359 Level 3 Est. Patient 11:44:04 CDT Tu Landeros MD [facility] CPT-27464 Level 3 Est. Patient 11:03:20 PACKAGING ASSEMBLER Tu Landeros MD [facility] CPT-40173 Level 3 Est. Patient 11:03:14 PACKAGING ASSEMBLER Tu Landeros MD [facility] CPT-04074 Level 3 Est. Patient 12:42:49 CDT Tu Landeros MD [facility] CPT-92793 Level 3 Est. Patient 11:52:06 CDT Tu Ladneros MD [facility] CPT-54352 Level 3 Est. Patient 13:58:11 CDT Tu Landeros MD [facility] CPT-43481 Level 3 Est. Patient 17:50:07 CDT Fab Morales DO [facility] CPT-56038 Level 3 Est. Patient 12:06:29 CDT Elvira Cervantes MD [facility] CPT-55258 Level 3 Est. Patient 15:50:32 CDT Tu Landeros MD [facility] CPT-44050 Level 4 Est. Patient 16:08:29 CDT Tu Landeros MD [facility] CPT-02787 Level 3 Est. Patient 16:04:19 CDT Tu Landeros MD [facility] CPT-38742 Level 3 Est. Patient 11:22:30 PACKAGING ASSEMBLER Tu Landeros MD [facility] CPT-15372 Level 4 Est. Patient 16:24:02 PACKAGING ASSEMBLER Tu Landeros MD [facility] CPT-32531 Level 3 Est. Patient 17:21:23 PACKAGING ASSEMBLER Tu Landeros MD [facility] Procedures Code Procedure Name Date Entry Date Standard Description CPT-85329 Shoulder, right, comp min 2V - XRAY USE ONLY 13:50:22 CDT CPT-G0009 Administration of Pneumococcal Vaccine 15:08:26 CDT CPT-11859 Prevnar 13 Intramuscular Suspension 15:08:26 CDT 10/08 CPT-G0439 [facility] Annual Wellness Exam 14:29:22 CDT CPT-13294 Venipuncture Draw Fee 13:15:35 CDT CPT-93775 Magnesium - LAB USE ONLY 11:14:20 PACKAGING ASSEMBLER CPT-95350 Lipid - LAB USE ONLY 11:14:20 PACKAGING ASSEMBLER CPT-56349 HGBA1C - LAB USE ONLY 11:14:20 PACKAGING ASSEMBLER CPT-56441 CMP - LAB USE ONLY 11:14:19 PACKAGING ASSEMBLER CPT-61675 CBC - LAB USE ONLY 11:14:19 PACKAGING ASSEMBLER CPT-79909 Venipuncture Draw Fee 11:14:18 PACKAGING ASSEMBLER CPT-13032 First Vx - Ix admin for Medicare patients 16:46:52 CDT CPT-56002 Fluzone Preservative Free Intramuscular Suspension 16:46 :51 CDT CPT-62304 CBC - LAB USE ONLY 17:14:46 CDT CPT-99534 HGBA1C - LAB USE ONLY 17:14:46 CDT CPT-82283 Venipuncture Draw Fee 17:14:46 CDT CPT-G0438 Initial Annual Wellness Exam 14:13:04 CDT CPT-28766 Breathing Tx 10:06:54 PACKAGING ASSEMBLER CPT-20537 Postop F/U Visit 10:02:45 CDT CPT-LR Lesion Removal 09:02:56 CDT CPT-JTINJ Asp/Joint Injection 15:51:27 PACKAGING ASSEMBLER CPT-OV Office Visit 15:52:02 PACKAGING ASSEMBLER CPT-OV Office Visit 15:45:11 CDT CPT-000 Give Zostavax 14:09:06 CDT CPT-36390 Administration single or combination vaccine inc oral 15 :19:04 CDT CPT-51416 Zoster Vaccine (Zostavax) 15:19:04 CDT CPT-35760 Administration single or combination vaccine inc oral 20 :51:03 CDT CPT-42353 Influenza split virus > age 3 20:51:03 CDT CPT-67886 No Charge Offi Visit 14:52:03 CDT CPT-OV Office Visit 14:57:43 CDT CPT-OV Office Visit 15:22:32 CDT CPT-76561 Administration single or combination vaccine inc oral 11 :33:15 CDT CPT-81857 Influenza split virus > age 3 11:33:15 CDT
[2018-04-25] MEDS ORDERED: POTA10CA43 PO (12:47)
[2018-04-25] MEDS ORDERED: GABA-486 PO (12:47)
--- OUTSIDE RECORDS SUMMARY | 2018-04-25 12:47 | XMS REPORT | Clinical Summary ---
Author Author Admin, SACHI Organization [employer] Address Unknown Phone Unavailable Allergies, Adverse Reactions, [...] 2012 PARESTHESIA ICD-782.0 Inactive Tu Landeros MD RASH [...] pain, bilateral ICD-388.70 Inactive Tu Landeros MD SHOULDER PAIN, LEFT ICD-719.41 Inactive Tu Landeros MD Hot flashes ICD-627.2 Inactive Tu Landeros MD Sebaceous cyst ICD-706.2 Inactive Tu Landeros MD Upper respiratory infection, viral ICD-465.9 Inactive uT Landeros MD Sinusitis - acute ICD-461.9 Inactive Tu Landeros MD Leg pain, left ICD-729.5 Inactive Tu Landeros MD Vision impairment, both eyes, impairment level not further specified ICD- 369.20 Inactive Tu Landeros MD Medication List Medication Instructions Start Date Stop Date Generic Name NDC Status Provider Patient Instruction TRUE METRIX BLOOD GLUCOSE TEST INVITR STRP Test blood sugar BID Dx: E11.9 GLUCOSE BLOOD 06914296036 Active Tu Landeros MD Active TRUE METRIX AIR GLUCOSE METER W/DEVICE KIT Test blood glucose BID Dx: E11.9 BLOOD GLUCOSE MONITORING SUPPL 28079952484 Active Tu Landeros MD Active TRUETEST TEST INVITR STRP test blood sugar twice daily. DX 250.0 GLUCOSE BLOOD 02680890466 No Longer Active Mirna Stanley LPN Active TRUEDRAW LANCING DEVICE MISC test blood sugar twice daily dx: 250.00 LANCET DEVICES 55592228051 No Longer Active Mirna Stanley LPN Active ENALAPRIL MALEATE 20 MG TABS 2 po qd ENALAPRIL MALEATE 19376017187 Active Tu Landeros MD Active SUPER B COMPLEX/VITAMIN C TABS 1 qd B COMPLEX-C 64670660817 No Longer Active Tu Landeros MD Active ASPIRIN EC 81 MG ORAL TBEC 1 po qd ASPIRIN 73641570154 Active Tu Landeros MD Active GLUCOSAMINE 500 MG TABS 2 po qd GLUCOSAMINE Active Tu Landeros MD Active SIMVASTATIN 40 MG TABS 0.5 po qHS SIMVASTATIN 39582604457 Active Tu Landeros MD Active FISH OIL 1000 MG CAPS 1 po qd OMEGA-3 FATTY ACIDS 01246029934 Active Tu Landeros MD Active METFORMIN HCL 1000 MG TABS 1 po BID METFORMIN HCL 06944934790 Active Tu Landeros MD Active KLOR-CON 10 10 MEQ CR-TABS 2 po qd POTASSIUM CHLORIDE 10847896555 Active Tu Landeros MD Active FUROSEMIDE 40 MG TAB 1 po qd FUROSEMIDE 23171726627 Active Tu Landeros MD Active REQUIP 2 MG ORAL TABS 1 po qHS PRN Restless legs ROPINIROLE HCL 27759098365 Active Tu Landeros MD Active VENLAFAXINE HCL 37.5 MG TABS 1 po BID VENLAFAXINE HCL 45219336969 Active Tu Landeros MD Active GABAPENTIN 100 MG CAPS 1 po BID GABAPENTIN 10584842843 Active Tu Landeros MD Active REQUIP 2 MG TABS Take one tablet at bedtime prn ROPINIROLE HCL 95819426031 No Longer Active Tu Landeros MD Active VENTOLIN HFA 108 (90 BASE) MCG/ACT AERS 1-2 puffs every 4 hours if needed for cough/congestion ALBUTEROL SULFATE 79802514738 No Longer Active Ambika Aden APRN Active ZITHROMAX 250 MG TAB 2 po today, then 1 po q days 2-5 AZITHROMYCIN 84306334729 No Longer Active Miranda Suresh APRN Active FLONASE 50 MCG/ACT SUSP 1 spray each nostril twice daily until bottle empty FLUTICASONE PROPIONATE 24448857041 No Longer Active Tu Landeros MD Active COLACE 100 MG CAP 1 po BID PRN Constipation DOCUSATE SODIUM 65357295521 Active Tu Landeros MD Active TRUERESULT BLOOD GLUCOSE W/DEVICE KIT test blood sugar twice daily dx 250.00 BLOOD GLUCOSE MONITORING SUPPL 86416734334 No Longer Active Tu Landeros MD Active TRUEDRAW LANCING DEVICE MISC Test twice a day dx 250.0 LANCET DEVICES 90174714942 No Longer Active Tu Landeros MD Active PREDNISONE 20 MG TAB 2 tablets once daily for 2 days, then 1 tablet once daily for 2 days PREDNISONE 72803150471 No Longer Active Tu Landeros MD Active DICLOFENAC SODIUM 50 MG TBEC 1 tablet by mouth three times a day as needed DICLOFENAC SODIUM 30473346537 No Longer Active Fab Morales DO Active EMBRACE BLOOD GLUCOSE TEST STRP test blood sugar twice daily DX 250.0 2014 GLUCOSE BLOOD 21092474339 No Longer Active Tu Landeros MD Active TRUETEST TEST STRP test blood sugar three times daily dx: 250.00 GLUCOSE BLOOD 06363319198 No Longer Active Suzebianca VOGEL Active TRUERESULT BLOOD GLUCOSE W/DEVICE KIT use to test blood sugar tid dx: 250.00 BLOOD GLUCOSE MONITORING SUPPL 26137609947 No Longer Active Suze VOGEL Active ALIGN 4 MG CAPS 1 tid PROBIOTIC PRODUCT 03515111758 No Longer Active Shaun Sy MD Active CIPRO 500 MG TABS 1 bid x 14 days start 09-28-13 CIPROFLOXACIN HCL 07383498781 No Longer Active Shaun Sy MD Active TRAMADOL HCL 50 MG TABS 1-2 tablets every 6 hours as needed for pain TRAMADOL HCL 21023043152 Active Tu Landeros MD Active HYDROCODONE-ACETAMINOPHEN 5-325 MG TABS 1 tab by mouth every 6 hours as needed for pain HYDROCODONE-ACETAMINOPHEN 28385450314 No Longer Active Tu Landeros MD Active OMEPRAZOLE 20 MG CPDR 1 po q a.m. OMEPRAZOLE 81189326764 Active Tu Landeros MD Active GABAPENTIN 100 MG CAPS 1 po bid GABAPENTIN 64957131716 No Longer Active Tu Landeros MD Active B-12 100 MCG TABS Take one by mouth daily CYANOCOBALAMIN 69686872846 No Longer Active Tu Landeros MD Active BACTRIM DS 800-160 MG TABS 1 bid x 14 day start 09-28-13 SULFAMETHOXAZOLE-TRIMETHOPRIM 47746041113 No Longer Active Tu Landeros MD Active CARVEDILOL 12.5 MG TABS 1 po BID CARVEDILOL 63470527499 Active Tu Landeros MD Active TRILIPIX 135 MG CPDR 1 q hs CHOLINE FENOFIBRATE 93108350932 Active Tu Landeros MD Active FENOFIBRATE 145 MG TABS 1 po qd FENOFIBRATE 06974573575 No Longer Active JASPREET Perez Active OMEPRAZOLE 20 MG TBEC 1 PO 30 MIN BEFORE 1ST MEAL OMEPRAZOLE 23645731070 No Longer Active JASPREET Perez Active SIMVASTATIN 40 MG TABS Take one by mouth daily SIMVASTATIN 61966721945 No Longer Active JASPREET Perez Active VENLAFAXINE HCL 75 MG TABS 1 po BID VENLAFAXINE HCL 62344009110 No Longer Active JASPREET Perez Active CIPRO 500 MG TAB 1 tablet by mouth twice daily CIPROFLOXACIN HCL 16903946890 No Longer Active Tu Landeros MD Active VENLAFAXINE HCL 37.5 MG TABS 1 po BID VENLAFAXINE HCL 43526486450 No Longer Active Suzecandido NUNOA Active LAMISIL 250 MG TAB 1 po qd TERBINAFINE HCL 92645763537 No Longer Active Tu Landeros MD Active LORTAB 5 5-500 MG TABS 1/2 to 1 tablet by mouth every 4 hours as needed for pain HYDROCODONE-ACETAMINOPHEN 34367955027 No Longer Active Tu Landeros MD Active HYDROCODONE-ACETAMINOPHEN 5-500 MG TABS take one po Q 4-6 hours prn HYDROCODONE-ACETAMINOPHEN 04774797016 No Longer Active Tu Landeros MD Active BACTRIM DS 800-160 MG TABS 1 po BID x 7 days SULFAMETHOXAZOLE-TRIMETHOPRIM 96682981059 No Longer Active Tu Landeros MD Active VENLAFAXINE HCL 75 MG TABS 1 po BID VENLAFAXINE HCL 95084461756 No Longer Active Elvira Cervantes MD PhD Active TRAMADOL HCL 50 MG TABS 1 tablets every 6 hours as needed for pain TRAMADOL HCL 70855823620 No Longer Active Tu Landeros MD Active ACCU-CHEK FASTCLIX LANCETS MISC Use to check bloodsugar three times daily as needed LANCETS 57172147550 No Longer Active Tu Landeros MD Active ACCU-CHEK KEYONA PLUS STRP Use for testing bloodsugars three times daily as needed GLUCOSE BLOOD 83143735147 No Longer Active Tu Landeros MD Active ACCU-CHEK KEYONA PLUS W/DEVICE KIT Use for testing bloodsugars three times daily as needed BLOOD GLUCOSE MONITORING SUPPL 55966998290 No Longer Active Tu Landeros MD Active SPIRONOLACTONE 25 MG TAB 0.5 tablet by mouth daily SPIRONOLACTONE 13263467859 No Longer Active Tu Landeros MD Active ALPRAZOLAM 0.5 MG TABS 1 tab every 6hrs as needed ALPRAZOLAM 45022769387 No Longer Active Tu Landeros MD Active AUGMENTIN 875-125 MG TAB 1 tab by mouth twice daily with food AMOXICILLIN-POT CLAVULANATE 37816429977 No Longer Active Tu Landeros MD Active PREDNISONE 20 MG TAB 2 tabs daily for 3 days, 1 tab daily for 3 days, 1/2 tab daily for 2 days PREDNISONE 24080026195 No Longer Active Tu Landeros MD Active XANAX 0.5 MG TABS 1 tablet every 6 hrs prn ALPRAZOLAM 34719969062 No Longer Active Tu Landeros MD Active PREDNISONE 20 MG TAB 2 tabs daily for 3 days, 1 tab daily for 3 days, 1/2 tab daily for 2 days PREDNISONE 31571278353 No Longer Active Tu Landeros MD Active TRIAMCINOLONE ACETONIDE 0.1 % OINT Apply to affected areas TID for up to 2 weeks TRIAMCINOLONE ACETONIDE 69460660936 No Longer Active Tu Landeros MD Active LORTAB 5 5-500 MG TABS 1/2 to 1 tablet by mouth every 4 hours as needed for pain HYDROCODONE-ACETAMINOPHEN 77844542786 No Longer Active Tu Landeros MD Active MULTIVITAMINS TABS Take one by mouth daily MULTIPLE VITAMIN 42011277258 No Longer Active Tu Landeros MD Active MELATONIN 5 MG TABS Take one by mouth daily MELATONIN 87239258111 No Longer Active Tu Landeros MD Active SOMA 350 MG TAB 1 po q 6 hours prn spasm CARISOPRODOL 29464003727 No Longer Active Tu Landeros MD Active MECLIZINE HCL 25 MG CHEW TAB 1 four times a day as needed for dizziness 08/05 MECLIZINE HCL 15724339940 No Longer Active Fab Morales DO Active ANGEL BREEZE 2 TEST DISK test tid prn GLUCOSE BLOOD 36961466557 No Longer Active Negra Scott RN Active REGLAN 10 MG TAB 1 po TID PRN Nausea METOCLOPRAMIDE HCL 26093204104 No Longer Active Tu Landeros MD Active METFORMIN HCL 500 MG TABS 1 PO BID METFORMIN HCL 25245579665 No Longer Active Tu Landeros MD Active AMBIEN 10 MG TAB 1 tab by mouth at bedtime as needed for sleep ZOLPIDEM TARTRATE 11898795061 No Longer Active Tu Landeros MD Active FLUOXETINE HCL 40 MG CAPS 1 po q day FLUOXETINE HCL 93408212470 No Longer Active Mayra Terry Active TRILIPIX 135 MG CPDR 1 po qd CHOLINE FENOFIBRATE 72803815007 No Longer Active Tu Landeros MD Active AMBIEN 10 MG TAB 1 tab by mouth at bedtime as needed for sleep AMBIEN 10 MG TAB 851476 ZOLPIDEM TARTRATE Inactive METFORMIN HCL 500 MG TABS 1 PO BID METFORMIN HCL 500 MG TABS 018079 METFORMIN HCL Inactive REGLAN 10 MG TAB 1 po TID PRN Nausea REGLAN 10 MG TAB 983482 METOCLOPRAMIDE HCL Inactive MECLIZINE HCL 25 MG CHEW TAB 1 four times a day as needed for dizziness 08/05 MECLIZINE HCL 25 MG CHEW TAB 118128 MECLIZINE HCL Inactive SOMA 350 MG TAB 1 po q 6 hours prn spasm SOMA 350 MG TAB 470957 CARISOPRODOL Inactive MELATONIN 5 MG TABS Take one by mouth daily MELATONIN 5 MG TABS 755090 MELATONIN Inactive MULTIVITAMINS TABS Take one by mouth daily MULTIVITAMINS TABS MULTIPLE VITAMIN Inactive LORTAB 5 5-500 MG TABS 1/2 to 1 tablet by mouth every 4 hours as needed for pain LORTAB 5 5-500 MG TABS HYDROCODONE- ACETAMINOPHEN Inactive XANAX 0.5 MG TABS 1 tablet every 6 hrs prn XANAX 0.5 MG TABS 678372 ALPRAZOLAM Inactive AUGMENTIN 875-125 MG TAB 1 tab by mouth twice daily with food AUGMENTIN 875-125 MG TAB 737604 AMOXICILLIN-POT CLAVULANATE Inactive ALPRAZOLAM 0.5 MG TABS 1 tab every 6hrs as needed ALPRAZOLAM 0.5 MG TABS 592700 ALPRAZOLAM Inactive SPIRONOLACTONE 25 MG TAB 0.5 tablet by mouth daily SPIRONOLACTONE 25 MG TAB 731162 SPIRONOLACTONE Inactive ACCU-CHEK KEYONA PLUS W/DEVICE KIT Use for testing bloodsugars three times daily as needed ACCU-CHEK KEYONA PLUS W/DEVICE KIT BLOOD GLUCOSE MONITORING SUPPL Inactive ACCU-CHEK KEYONA PLUS STRP Use for testing bloodsugars three times daily as needed ACCU-CHEK KEYONA PLUS STRP GLUCOSE BLOOD Inactive ACCU-CHEK FASTCLIX LANCETS MISC Use to check bloodsugar three times daily as needed ACCU-CHEK FASTCLIX LANCETS MISC 30065828247 LANCETS Inactive TRAMADOL HCL 50 MG TABS 1 tablets every 6 hours as needed for pain TRAMADOL HCL 50 MG TABS 231029 TRAMADOL HCL Inactive VENLAFAXINE HCL 75 MG TABS 1 po BID VENLAFAXINE HCL 75 MG TABS 526980 VENLAFAXINE HCL Inactive HYDROCODONE-ACETAMINOPHEN 5-500 MG TABS take one po Q 4-6 hours prn HYDROCODONE-ACETAMINOPHEN 5-500 MG TABS HYDROCODONE- ACETAMINOPHEN Inactive LORTAB 5 5-500 MG TABS 1/2 to 1 tablet by mouth every 4 hours as needed for pain LORTAB 5 5-500 MG TABS HYDROCODONE- ACETAMINOPHEN Inactive LAMISIL 250 MG TAB 1 po qd LAMISIL 250 MG TAB 318700 TERBINAFINE HCL Inactive VENLAFAXINE HCL 37.5 MG TABS 1 po BID VENLAFAXINE HCL 37.5 MG TABS 065288 VENLAFAXINE HCL Inactive CIPRO 500 MG TAB 1 tablet by mouth twice daily CIPRO 500 MG TAB 619729 CIPROFLOXACIN HCL Inactive VENLAFAXINE HCL 75 MG TABS 1 po BID VENLAFAXINE HCL 75 MG TABS 979001 VENLAFAXINE HCL Inactive SIMVASTATIN 40 MG TABS Take one by mouth daily SIMVASTATIN 40 MG TABS 750092 SIMVASTATIN Inactive OMEPRAZOLE 20 MG TBEC 1 PO 30 MIN BEFORE 1ST MEAL OMEPRAZOLE 20 MG TBEC 047453 OMEPRAZOLE Inactive FENOFIBRATE 145 MG TABS 1 po qd FENOFIBRATE 145 MG TABS 944282 FENOFIBRATE Inactive BACTRIM DS 800-160 MG TABS 1 bid x 14 day start 09-28-13 BACTRIM DS 800-160 MG TABS 004621 SULFAMETHOXAZOLE-TRIMETHOPRIM Inactive B-12 100 MCG TABS Take one by mouth daily B-12 100 MCG TABS CYANOCOBALAMIN Inactive GABAPENTIN 100 MG CAPS 1 po bid GABAPENTIN 100 MG CAPS 823537 GABAPENTIN Inactive HYDROCODONE-ACETAMINOPHEN 5-325 MG TABS 1 tab by mouth every 6 hours as needed for pain HYDROCODONE-ACETAMINOPHEN 5-325 MG TABS 622072 HYDROCODONE-ACETAMINOPHEN Inactive CIPRO 500 MG TABS 1 bid x 14 days start 09-28-13 CIPRO 500 MG TABS 306407 CIPROFLOXACIN HCL Inactive ALIGN 4 MG CAPS [...] day as needed DICLOFENAC SODIUM 50 MG [facility] 586494 DICLOFENAC SODIUM Inactive PREDNISONE 20 MG TAB 2 tablets once daily for 2 days, then 1 tablet once daily for 2 days PREDNISONE 20 MG TAB 399390 PREDNISONE Inactive TRUEDRAW LANCING DEVICE MISC Test [...] at bedtime prn REQUIP 2 MG TABS 852340 ROPINIROLE HCL Inactive SUPER B COMPLEX/VITAMIN C TABS 1 qd SUPER B COMPLEX/ VITAMIN C TABS 45911429457 B COMPLEX-C Inactive TRUEDRAW LANCING DEVICE MISC test blood sugar twice daily dx: 250.00 TRUEDRAW LANCING DEVICE MISC LANCET DEVICES Inactive TRUETEST TEST INVITR STRP test blood sugar twice daily. DX 250.0 TRUETEST TEST INVITR STRP GLUCOSE BLOOD Inactive TRIAMCINOLONE ACETONIDE 0.1 % OINT Apply to affected areas TID for up to 2 weeks TRIAMCINOLONE ACETONIDE 0.1 % OINT 9215800 TRIAMCINOLONE ACETONIDE Inactive PREDNISONE 20 MG TAB 2 tabs daily for 3 days, 1 tab daily for 3 days, 1/2 tab daily for 2 days PREDNISONE 20 MG TAB 750133 PREDNISONE Inactive PREDNISONE 20 MG TAB 2 tabs daily for 3 days, 1 tab daily for 3 days, 1/2 tab daily for 2 days PREDNISONE 20 MG TAB 675467 PREDNISONE Inactive BACTRIM DS 800-160 MG TABS 1 po BID x 7 days BACTRIM DS 800-160 MG TABS 792246 SULFAMETHOXAZOLE-TRIMETHOPRIM Inactive ZITHROMAX 250 MG TAB 2 po today, then 1 po q days 2-5 ZITHROMAX 250 MG TAB 3240258 AZITHROMYCIN Inactive Advance Directives Directive Description Start Date DISCUSSED WITH PATIENT -- NO DECISION MADE Immunizations Vaccine Administration Date Value Standard Description Seasonal influenza vaccine, injectable, containing preservative, for > 3 years old (Afluria, FluLaval, Fluzone, Fluvirin, Fluarix, Agriflu(>=18 yo)) Fluzone (>3 yrs.) [[id number]] Influenza, seasonal, injectable influenza immunization (Flu Vax) has been administered 02/22/2012 influenza virus vaccine, unspecified formulation Seasonal influenza vaccine, injectable, containing preservative, for > 3 years old (Afluria, FluLaval, Fluzone, Fluvirin, Fluarix, Agriflu(>=18 yo)) Fluzone (>3 yrs.) [[id number]] Influenza, seasonal, injectable Vital Signs Date Name Value Unit Range Description blood pressure, diastolic - 8462-4 67 mm[Hg] [...] E&M - 3141-9 311 [lb_av] Weight Measured Diagnostic Results Date Name [...] Magnesium - Chemistry sodium, serum 143 mmol/L 840-295 9555/01/10 carbon dioxide, venous blood 28.0 mmol/L 21.0-32.0 potassium, serum 4.5 mmol/L 3.5-5.2 chloride, serum 104 mmol/L 98-107 blood glucose 158 mg/dL 65-110 urea nitrogen, blood 23 mg/dL 7-18 creatinine, serum 1.06 mg/dL 0.55-1.30 alanine aminotransferase (SGPT), serum 42 U/L 12-78 aspartate aminotransferase (SGOT), serum 32 U/L 15-37 calcium, serum 9.3 mg/dL 8.5-10.1 bilirubin, serum, total 0.20 mg/dL 0.00-1.00 cholesterol, serum 177 mg/dL 714-241 2044/01/10 triglyceride, serum, fasting 320 mg/dL 30-200 HDL cholesterol, serum 46 mg/dL 32-96 LDL cholesterol, serum 67 mg/dL 0-130 Lab Report: HGBA1C - Chemistry hemoglobin A1C, blood, as % of total hemoglobin 7.1 % 4.3-6.0 hemoglobin A1C, blood, as % of total hemoglobin 7.4 % 4.3-6.0 sodium, serum 140 mmol/L 661-700 2143/09/07 potassium, serum 4.3 mmol/L 3.5-5.2 chloride, serum [...] <30 Encounters Code Encounter Date Provider Facility CPT-35973 Level 4 Est. Patient 09:08:17 DRAGLINE OILER Tu Landeros MD [facility] CPT-69352 Level 4 Est. Patient 14:40:19 CDT Tu Landeros MD [facility] CPT-79424 Level 4 Est. Patient 14:06:04 DRAGLINE OILER Tu Landeros MD [facility] CPT-71021 Level 3 Est. Patient 14:05:18 DRAGLINE OILER Tu Landeros MD [facility] CPT-80647 Level 3 Est. Patient 10:06:54 DRAGLINE OILER Miranda Suresh FLOOR W[employer] CPT-64512 Level 4 Est. Patient 13:50:18 DRAGLINE OILER Tu Landeros MD [facility] CPT-77665 Level 3 Est. Patient 10:30:04 CDT Tu Landeros MD [facility] CPT-63538 Level 4 Est. Patient 11:03:38 CDT Tu Landeros MD [facility] CPT-89177 Level 3 Est. Patient 10:20:44 CDT Fab Morales DO [facility] CPT-97512 Level 4 Est. Patient 14:38:57 CDT Tu Landeros MD [facility] CPT-08730 Level 4 Est. Patient 14:27:39 DRAGLINE OILER Tu Landeros MD [facility] CPT-72285 Level 4 Est. Patient 09:45:25 CDT Tu Landeros MD [facility] CPT-01126 Level 4 Est. Patient 09:05:20 DRAGLINE OILER Tu Landeros MD [facility] CPT-30310 Level 4 Est. Patient 14:09:06 CDT Tu Landeros MD [facility] CPT-75445 Level 3 Est. Patient 13:36:54 CDT Tu Landeros MD [facility] CPT-59238 Level 3 Est. Patient 08:59:14 CDT Tu Landeros MD [facility] CPT-99452 Level 3 Est. Patient 13:48:35 CDT Fab Morales DO [facility] CPT-22358 Level 4 Est. Patient 10:05:48 CDT Tu Landeros MD [facility] CPT-67068 Level 3 Est. Patient 13:38:42 CDT Marek BANKS [facility] CPT-75968 Level 5 Est. Patient 08:08:39 CDT Jerrica FRANCIS [facility] CPT-30688 Level 4 Est. Patient 14:23:38 CDT Tu Landeros MD [facility] CPT-81163 Level 3 Est. Patient 11:44:04 CDT Tu Landeros MD [facility] CPT-38923 Level 3 Est. Patient 11:03:20 DRAGLINE OILER Tu Landeros MD [facility] CPT-65552 Level 3 Est. Patient 11:03:14 DRAGLINE OILER Tu Landeros MD [facility] CPT-69009 Level 3 Est. Patient 12:42:49 CDT Tu Landeros MD [facility] CPT-56187 Level 3 Est. Patient 11:52:06 CDT Tu Landeros MD [facility] CPT-47271 Level 3 Est. Patient 13:58:11 CDT Tu Landeros MD [facility] CPT-27658 Level 3 Est. Patient 17:50:07 CDT Fab Morales DO [facility] CPT-15669 Level 3 Est. Patient 12:06:29 CDT Elvira Cervantes MD [facility] CPT-63820 Level 3 Est. Patient 15:50:32 CDT Tu Landeros MD [facility] CPT-76293 Level 4 Est. Patient 16:08:29 CDT Tu Landeros MD [facility] CPT-28254 Level 3 Est. Patient 16:04:19 CDT Tu Landeros MD [facility] CPT-25208 Level 3 Est. Patient 11:22:30 DRAGLINE OILER Tu Landeros MD [facility] CPT-98369 Level 4 Est. Patient 16:24:02 DRAGLINE OILER Tu Landeros MD [facility] CPT-02872 Level 3 Est. Patient 17:21:23 DRAGLINE OILER Tu Landeros MD [facility] Procedures Code Procedure Name Date Entry Date Standard Description CPT-80468 Magnesium - LAB USE ONLY 11:14:20 DRAGLINE OILER CPT-73117 Lipid - LAB USE ONLY 11:14:20 DRAGLINE OILER CPT-57901 HGBA1C - LAB USE ONLY 11:14:20 DRAGLINE OILER CPT-70996 CMP - LAB USE ONLY 11:14:19 DRAGLINE OILER CPT-40350 CBC - LAB USE ONLY 11:14:19 DRAGLINE OILER CPT-85230 Venipuncture Draw Fee 11:14:18 DRAGLINE OILER CPT-61840 First Vx - Ix admin for Medicare patients 16:46:52 CDT CPT-30616 Fluzone Preservative Free Intramuscular Suspension 16:46 :51 CDT CPT-31116 CBC - LAB USE ONLY 17:14:46 CDT CPT-48591 HGBA1C - LAB USE ONLY 17:14:46 CDT CPT-84040 Venipuncture Draw Fee 17:14:46 CDT CPT-G0438 Initial Annual Wellness Exam 14:13:04 CDT CPT-43586 Breathing Tx 10:06:54 DRAGLINE OILER CPT-15892 Postop F/U Visit 10:02:45 CDT CPT-LR Lesion Removal 09:02:56 CDT CPT-JTINJ Asp/Joint Injection 15:51:27 DRAGLINE OILER CPT-OV Office Visit 15:52:02 DRAGLINE OILER CPT-OV Office Visit 15:45:11 CDT CPT-000 Give Zostavax 14:09:06 CDT CPT-73904 Administration single or combination vaccine inc oral 15 :19:04 CDT CPT-28425 Zoster Vaccine (Zostavax) 15:19:04 CDT CPT-94426 Administration single or combination vaccine inc oral 20 :51:03 CDT CPT-82888 Influenza split virus > age 3 20:51:03 CDT CPT-30503 No Charge Offi Visit 14:52:03 CDT CPT-OV Office Visit 14:57:43 CDT CPT-OV Office Visit 15:22:32 CDT CPT-89929 Administration single or combination vaccine inc oral 11 :33:15 CDT CPT-51780 Influenza split virus > age 3 11:33:15 CDT
[2018-04-25] MEDS ORDERED: ASPI-586 PO (12:48)
[2018-04-25] MEDS ORDERED: MAGN400T39 PO (12:48)
--- OUTSIDE RECORDS SUMMARY | 2018-04-25 12:48 | XMS REPORT | Clinical Summary ---
Author Author Admin, SACHI Organization [employer] Address Unknown Phone Unavailable Allergies, Adverse Reactions, [...] care facility Health screening V70.0 Active Tu Landeors MD Routine general medical examination at a [...] Tu Landeros MD [facility] ICD-724.3 Inactive Tu Lanedros MD 2012 SHOULDER PAIN, LEFT ICD-719.41 Inactive [...] blood sugar BID Dx: E11.9 GLUCOSE BLOOD 53298640362 Active Tu Landeros MD Active TRUE METRIX AIR GLUCOSE METER W/DEVICE KIT Test blood glucose BID Dx: E11.9 BLOOD GLUCOSE MONITORING SUPPL 28878210247 Active Tu Landeros MD Active TRUETEST TEST INVITR STRP test blood sugar twice daily. DX 250.0 GLUCOSE BLOOD 27381836370 No Longer Active Mirna Stanley LPN Active TRUEDRAW LANCING DEVICE MISC test blood sugar twice daily dx: 250.00 LANCET DEVICES 68294648556 No Longer Active Mirna Stanley LPN Active ENALAPRIL MALEATE 20 MG TABS 2 po qd ENALAPRIL MALEATE 26497466023 Active Tu Landeros MD Active SUPER B COMPLEX/VITAMIN C TABS 1 qd B COMPLEX-C 69215965686 No Longer Active Tu Landeros MD Active ASPIRIN EC 81 MG ORAL TBEC 1 po qd ASPIRIN 91812578015 Active Tu Landeros MD Active GLUCOSAMINE 500 MG TABS 2 po qd GLUCOSAMINE Active Tu Landeros MD Active SIMVASTATIN 40 MG TABS 0.5 po qHS SIMVASTATIN 50134878913 Active Tu Landeros MD Active FISH OIL 1000 MG CAPS 1 po qd OMEGA-3 FATTY ACIDS 35800489346 Active Tu Landreos MD Active METFORMIN HCL 1000 MG TABS 1 po BID METFORMIN HCL 31068181781 Active Tu Landeros MD Active KLOR-CON 10 10 MEQ CR-TABS 2 po qd POTASSIUM CHLORIDE 30964394873 Active Tu Landeros MD Active FUROSEMIDE 40 MG TAB 1 po qd FUROSEMIDE 41329639712 Active Tu Landeros MD Active REQUIP 2 MG ORAL TABS 1 po qHS PRN Restless legs ROPINIROLE HCL 87682126569 Active Tu Landeros MD Active VENLAFAXINE HCL 37.5 MG TABS 1 po BID VENLAFAXINE HCL 45343532768 Active Tu Landeros MD Active GABAPENTIN 100 MG CAPS 1 po BID GABAPENTIN 71210503493 Active José Luis Becerra MD Active REQUIP 2 MG TABS Take one tablet at bedtime prn ROPINIROLE HCL 80901797620 No Longer Active Tu Landeros MD Active VENTOLIN HFA 108 (90 BASE) MCG/ACT AERS 1-2 puffs every 4 hours if needed for cough/congestion ALBUTEROL SULFATE 14321938919 No Longer Active Ambika Aden APRN Active ZITHROMAX 250 MG TAB 2 po today, then 1 po q days 2-5 AZITHROMYCIN 33329241418 No Longer Active Miranda Suresh APRN Active FLONASE 50 MCG/ACT SUSP 1 spray each nostril twice daily until bottle empty FLUTICASONE PROPIONATE 26747002515 No Longer Active Tu Landeros MD Active COLACE 100 MG CAP 1 po BID PRN Constipation DOCUSATE SODIUM 77570751973 Active Tu Landeros MD Active TRUERESULT BLOOD GLUCOSE W/DEVICE KIT test blood sugar twice daily dx 250.00 BLOOD GLUCOSE MONITORING SUPPL 95076151255 No Longer Active Tu Landeros MD Active TRUEDRAW LANCING DEVICE MISC Test twice a day dx 250.0 LANCET DEVICES 12633252126 No Longer Active Tu Landeros MD Active PREDNISONE 20 MG TAB 2 tablets once daily for 2 days, then 1 tablet once daily for 2 days PREDNISONE 23941548776 No Longer Active Tu Landeros MD Active DICLOFENAC SODIUM 50 MG TBEC 1 tablet by mouth three times a day as needed DICLOFENAC SODIUM 02516077138 No Longer Active Fab Morales DO Active EMBRACE BLOOD GLUCOSE TEST STRP test blood sugar twice daily DX 250.0 2014 GLUCOSE BLOOD 43857245197 No Longer Active Tu Landeros MD Active TRUETEST TEST STRP test blood sugar three times daily dx: 250.00 GLUCOSE BLOOD 18595160952 No Longer Active Suzebianca VOGEL Active TRUERESULT BLOOD GLUCOSE W/DEVICE KIT use to test blood sugar tid dx: 250.00 BLOOD GLUCOSE MONITORING SUPPL 84799783064 No Longer Active Suze VOGEL Active ALIGN 4 MG CAPS 1 tid PROBIOTIC PRODUCT 06764362701 No Longer Active Shaun Sy MD Active CIPRO 500 MG TABS 1 bid x 14 days start 09-28-13 CIPROFLOXACIN HCL 71024054799 No Longer Active Shaun Sy MD Active TRAMADOL HCL 50 MG TABS 1-2 tablets every 6 hours as needed for pain TRAMADOL HCL 22464074406 Active JASPREET Moffett Active HYDROCODONE-ACETAMINOPHEN 5-325 MG TABS 1 tab by mouth every 6 hours as needed for pain HYDROCODONE-ACETAMINOPHEN 52205277624 No Longer Active Tu Landeros MD Active OMEPRAZOLE 20 MG CPDR 1 po q a.m. OMEPRAZOLE 39659083165 Active Tu Landeros MD Active GABAPENTIN 100 MG CAPS 1 po bid GABAPENTIN 70082840996 No Longer Active Tu Landeros MD Active B-12 100 MCG TABS Take one by mouth daily CYANOCOBALAMIN 63148117945 No Longer Active Tu Landeros MD Active BACTRIM DS 800-160 MG TABS 1 bid x 14 day start 09-28-13 SULFAMETHOXAZOLE-TRIMETHOPRIM 82254810752 No Longer Active Tu Landeros MD Active CARVEDILOL 12.5 MG TABS 1 po BID CARVEDILOL 93650629086 Active uT Landeros MD Active TRILIPIX 135 MG CPDR 1 q hs CHOLINE FENOFIBRATE 66727412441 Active Tu Landeros MD Active FENOFIBRATE 145 MG TABS 1 po qd FENOFIBRATE 77281451861 No Longer Active JASPREET Perez Active OMEPRAZOLE 20 MG TBEC 1 PO 30 MIN BEFORE 1ST MEAL OMEPRAZOLE 74366415685 No Longer Active JASPREET Perez Active SIMVASTATIN 40 MG TABS Take one by mouth daily SIMVASTATIN 35793397495 No Longer Active JASPREET Perez Active VENLAFAXINE HCL 75 MG TABS 1 po BID VENLAFAXINE HCL 98788104533 No Longer Active JASPREET Perez Active CIPRO 500 MG TAB 1 tablet by mouth twice daily CIPROFLOXACIN HCL 09050305112 No Longer Active Tu Landeros MD Active VENLAFAXINE HCL 37.5 MG TABS 1 po BID VENLAFAXINE HCL 33161070906 No Longer Active Suze NUNOA Active LAMISIL 250 MG TAB 1 po qd TERBINAFINE HCL 06506760259 No Longer Active Tu Landeros MD Active LORTAB 5 5-500 MG TABS 1/2 to 1 tablet by mouth every 4 hours as needed for pain HYDROCODONE-ACETAMINOPHEN 04656291731 No Longer Active Tu Landeros MD Active HYDROCODONE-ACETAMINOPHEN 5-500 MG TABS take one po Q 4-6 hours prn HYDROCODONE-ACETAMINOPHEN 63065080748 No Longer Active Tu Landeros MD Active BACTRIM DS 800-160 MG TABS 1 po BID x 7 days SULFAMETHOXAZOLE-TRIMETHOPRIM 65100367995 No Longer Active Tu Landeros MD Active VENLAFAXINE HCL 75 MG TABS 1 po BID VENLAFAXINE HCL 76011291773 No Longer Active Elvira Cervantes MD PhD Active TRAMADOL HCL 50 MG TABS 1 tablets every 6 hours as needed for pain TRAMADOL HCL 07700651442 No Longer Active Tu Landeros MD Active ACCU-CHEK FASTCLIX LANCETS MISC Use to check bloodsugar three times daily as needed LANCETS 67263769067 No Longer Active Tu Landeros MD Active ACCU-CHEK KEYONA PLUS STRP Use for testing bloodsugars three times daily as needed GLUCOSE BLOOD 61923973199 No Longer Active Tu Landeros MD Active ACCU-CHEK KEYONA PLUS W/DEVICE KIT Use for testing bloodsugars three times daily as needed BLOOD GLUCOSE MONITORING SUPPL 43638534290 No Longer Active Tu Landeros MD Active SPIRONOLACTONE 25 MG TAB 0.5 tablet by mouth daily SPIRONOLACTONE 38967658141 No Longer Active Tu Landeros MD Active ALPRAZOLAM 0.5 MG TABS 1 tab every 6hrs as needed ALPRAZOLAM 53716711834 No Longer Active Tu Landeros MD Active AUGMENTIN 875-125 MG TAB 1 tab by mouth twice daily with food AMOXICILLIN-POT CLAVULANATE 86610220169 No Longer Active Tu Landeros MD Active PREDNISONE 20 MG TAB 2 tabs daily for 3 days, 1 tab daily for 3 days, 1/2 tab daily for 2 days PREDNISONE 82283521403 No Longer Active Tu Landeros MD Active XANAX 0.5 MG TABS 1 tablet every 6 hrs prn ALPRAZOLAM 07111079901 No Longer Active Tu Landeros MD Active PREDNISONE 20 MG TAB 2 tabs daily for 3 days, 1 tab daily for 3 days, 1/2 tab daily for 2 days PREDNISONE 13438182986 No Longer Active Tu Landeros MD Active TRIAMCINOLONE ACETONIDE 0.1 % OINT Apply to affected areas TID for up to 2 weeks TRIAMCINOLONE ACETONIDE 85820446491 No Longer Active Tu Landeros MD Active LORTAB 5 5-500 MG TABS 1/2 to 1 tablet by mouth every 4 hours as needed for pain HYDROCODONE-ACETAMINOPHEN 80478622223 No Longer Active Tu Landeros MD Active MULTIVITAMINS TABS Take one by mouth daily MULTIPLE VITAMIN 80008798976 No Longer Active Tu Landeros MD Active MELATONIN 5 MG TABS Take one by mouth daily MELATONIN 41056661166 No Longer Active Tu Landeros MD Active SOMA 350 MG TAB 1 po q 6 hours prn spasm CARISOPRODOL 40055414861 No Longer Active Tu Landeros MD Active MECLIZINE HCL 25 MG CHEW TAB 1 four times a day as needed for dizziness 08/05 MECLIZINE HCL 21463124902 No Longer Active Fab Morales DO Active ANGEL BREEZE 2 TEST DISK test tid prn GLUCOSE BLOOD 09253961589 No Longer Active Negra Scott RN Active REGLAN 10 MG TAB 1 po TID PRN Nausea METOCLOPRAMIDE HCL 13434905545 No Longer Active Tu Landeros MD Active METFORMIN HCL 500 MG TABS 1 PO BID METFORMIN HCL 85679043504 No Longer Active Tu Landeros MD Active AMBIEN 10 MG TAB 1 tab by mouth at bedtime as needed for sleep ZOLPIDEM TARTRATE 12733066859 No Longer Active Tu Landeros MD Active FLUOXETINE HCL 40 MG CAPS 1 po q day FLUOXETINE HCL 90815868492 No Longer Active Mayra Terry Active TRILIPIX 135 MG CPDR 1 po qd CHOLINE FENOFIBRATE 59132650797 No Longer Active Tu Landeros MD Active AMBIEN 10 MG TAB 1 tab by mouth at bedtime as needed for sleep AMBIEN 10 MG TAB 200157 ZOLPIDEM TARTRATE Inactive METFORMIN HCL 500 MG TABS 1 PO BID METFORMIN HCL 500 MG TABS 087716 METFORMIN HCL Inactive REGLAN 10 MG TAB 1 po TID PRN Nausea REGLAN 10 MG TAB 027020 METOCLOPRAMIDE HCL Inactive MECLIZINE HCL 25 MG CHEW TAB 1 four times a day as needed for dizziness 08/05 MECLIZINE HCL 25 MG CHEW TAB 983427 MECLIZINE HCL Inactive SOMA 350 MG TAB 1 po q 6 hours prn spasm SOMA 350 MG TAB 738355 CARISOPRODOL Inactive MELATONIN 5 MG TABS Take one by mouth daily MELATONIN 5 MG TABS 154234 MELATONIN Inactive MULTIVITAMINS TABS Take one by mouth daily MULTIVITAMINS TABS MULTIPLE VITAMIN Inactive LORTAB 5 5-500 MG TABS 1/2 to 1 tablet by mouth every 4 hours as needed for pain LORTAB 5 5-500 MG TABS HYDROCODONE- ACETAMINOPHEN Inactive XANAX 0.5 MG TABS 1 tablet every 6 hrs prn XANAX 0.5 MG TABS 115155 ALPRAZOLAM Inactive AUGMENTIN 875-125 MG TAB 1 tab by mouth twice daily with food AUGMENTIN 875-125 MG TAB 984974 AMOXICILLIN-POT CLAVULANATE Inactive ALPRAZOLAM 0.5 MG TABS 1 tab every 6hrs as needed ALPRAZOLAM 0.5 MG TABS 370584 ALPRAZOLAM Inactive SPIRONOLACTONE 25 MG TAB 0.5 tablet by mouth daily SPIRONOLACTONE 25 MG TAB 646249 SPIRONOLACTONE Inactive ACCU-CHEK KEYONA PLUS W/DEVICE KIT Use for testing bloodsugars three times daily as needed ACCU-CHEK KEYONA PLUS W/DEVICE KIT BLOOD GLUCOSE MONITORING SUPPL Inactive ACCU-CHEK KEYONA PLUS STRP Use for testing bloodsugars three times daily as needed ACCU-CHEK KEYONA PLUS STRP GLUCOSE BLOOD Inactive ACCU-CHEK FASTCLIX LANCETS MISC Use to check bloodsugar three times daily as needed ACCU-CHEK FASTCLIX LANCETS MISC 00533871132 LANCETS Inactive TRAMADOL HCL 50 MG TABS 1 tablets every 6 hours as needed for pain TRAMADOL HCL 50 MG TABS 827997 TRAMADOL HCL Inactive VENLAFAXINE HCL 75 MG TABS 1 po BID VENLAFAXINE HCL 75 MG TABS 404147 VENLAFAXINE HCL Inactive HYDROCODONE-ACETAMINOPHEN 5-500 MG TABS take one po Q 4-6 hours prn HYDROCODONE-ACETAMINOPHEN 5-500 MG TABS HYDROCODONE- ACETAMINOPHEN Inactive LORTAB 5 5-500 MG TABS 1/2 to 1 tablet by mouth every 4 hours as needed for pain LORTAB 5 5-500 MG TABS HYDROCODONE- ACETAMINOPHEN Inactive LAMISIL 250 MG TAB 1 po qd LAMISIL 250 MG TAB 275901 TERBINAFINE HCL Inactive VENLAFAXINE HCL 37.5 MG TABS 1 po BID VENLAFAXINE HCL 37.5 MG TABS 260966 VENLAFAXINE HCL Inactive CIPRO 500 MG TAB 1 tablet by mouth twice daily CIPRO 500 MG TAB 153796 CIPROFLOXACIN HCL Inactive VENLAFAXINE HCL 75 MG TABS 1 po BID VENLAFAXINE HCL 75 MG TABS 353939 VENLAFAXINE HCL Inactive SIMVASTATIN 40 MG TABS Take one by mouth daily SIMVASTATIN 40 MG TABS 831215 SIMVASTATIN Inactive OMEPRAZOLE 20 MG TBEC 1 PO 30 MIN BEFORE 1ST MEAL OMEPRAZOLE 20 MG TBEC 066255 OMEPRAZOLE Inactive FENOFIBRATE 145 MG TABS 1 po qd FENOFIBRATE 145 MG TABS 221970 FENOFIBRATE Inactive BACTRIM DS 800-160 MG TABS 1 bid x 14 day start 09-28-13 BACTRIM DS 800-160 MG TABS 638062 SULFAMETHOXAZOLE-TRIMETHOPRIM Inactive B-12 100 MCG TABS Take one by mouth daily B-12 100 MCG TABS CYANOCOBALAMIN Inactive GABAPENTIN 100 MG CAPS 1 po bid GABAPENTIN 100 MG CAPS 758247 GABAPENTIN Inactive HYDROCODONE-ACETAMINOPHEN 5-325 MG TABS 1 tab by mouth every 6 hours as needed for pain HYDROCODONE-ACETAMINOPHEN 5-325 MG TABS 600669 HYDROCODONE-ACETAMINOPHEN Inactive CIPRO 500 MG TABS 1 bid x 14 days start 09-28-13 CIPRO 500 MG TABS 520414 CIPROFLOXACIN HCL Inactive ALIGN 4 MG CAPS [...] day as needed DICLOFENAC SODIUM 50 MG [facility] 757906 DICLOFENAC SODIUM Inactive PREDNISONE 20 MG TAB 2 tablets once daily for 2 days, then 1 tablet once daily for 2 days PREDNISONE 20 MG TAB 409865 PREDNISONE Inactive TRUEDRAW LANCING DEVICE MISC Test [...] at bedtime prn REQUIP 2 MG TABS 189682 ROPINIROLE HCL Inactive SUPER B COMPLEX/VITAMIN C TABS 1 qd SUPER B COMPLEX/ VITAMIN C TABS 43810510863 B COMPLEX-C Inactive TRUEDRAW LANCING DEVICE MISC test blood sugar twice daily dx: 250.00 TRUEDRAW LANCING DEVICE MISC LANCET DEVICES Inactive TRUETEST TEST INVITR STRP test blood sugar twice daily. DX 250.0 TRUETEST TEST INVITR STRP GLUCOSE BLOOD Inactive TRIAMCINOLONE ACETONIDE 0.1 % OINT Apply to affected areas TID for up to 2 weeks TRIAMCINOLONE ACETONIDE 0.1 % OINT 3433005 TRIAMCINOLONE ACETONIDE Inactive PREDNISONE 20 MG TAB 2 tabs daily for 3 days, 1 tab daily for 3 days, 1/2 tab daily for 2 days PREDNISONE 20 MG TAB 323501 PREDNISONE Inactive PREDNISONE 20 MG TAB 2 tabs daily for 3 days, 1 tab daily for 3 days, 1/2 tab daily for 2 days PREDNISONE 20 MG TAB 731929 PREDNISONE Inactive BACTRIM DS 800-160 MG TABS 1 po BID x 7 days BACTRIM DS 800-160 MG TABS 234192 SULFAMETHOXAZOLE-TRIMETHOPRIM Inactive ZITHROMAX 250 MG TAB 2 po today, then 1 po q days 2-5 ZITHROMAX 250 MG TAB 9982307 AZITHROMYCIN Inactive Advance Directives Directive Description Start Date DISCUSSED WITH PATIENT -- NO DECISION MADE Immunizations Vaccine Administration Date Value Standard Description Seasonal influenza vaccine, injectable, containing preservative, for > 3 years old (Afluria, FluLaval, Fluzone, Fluvirin, Fluarix, Agriflu(>=18 yo)) Fluzone (>3 yrs.) [[id number]] Influenza, seasonal, injectable influenza immunization (Flu Vax) has been administered 02/22/2012 influenza virus vaccine, unspecified formulation Seasonal influenza vaccine, injectable, containing preservative, for > 3 years old (Afluria, FluLaval, Fluzone, Fluvirin, Fluarix, Agriflu(>=18 yo)) Fluzone (>3 yrs.) [[id number]] Influenza, seasonal, injectable Vital Signs Date Name [...] Magnesium - Chemistry sodium, serum 143 mmol/L 574-734 8918/01/10 carbon dioxide, venous blood 28.0 mmol/L 21.0-32.0 potassium, serum 4.5 mmol/L 3.5-5.2 chloride, serum 104 mmol/L 98-107 blood glucose 158 mg/dL 65-110 urea nitrogen, blood 23 mg/dL 7-18 creatinine, serum 1.06 mg/dL 0.55-1.30 alanine aminotransferase (SGPT), serum 42 U/L 12-78 aspartate aminotransferase (SGOT), serum 32 U/L 15-37 calcium, serum 9.3 mg/dL 8.5-10.1 bilirubin, serum, total 0.20 mg/dL 0.00-1.00 cholesterol, serum 177 mg/dL 111-842 5343/01/10 triglyceride, serum, fasting 320 mg/dL 30-200 HDL cholesterol, serum 46 mg/dL 32-96 LDL cholesterol, serum 67 mg/dL 0-130 Lab Report: HGBA1C - Chemistry hemoglobin A1C, blood, as % of total hemoglobin 7.1 % 4.3-6.0 hemoglobin A1C, blood, as % of total hemoglobin 7.4 % 4.3-6.0 sodium, serum 140 mmol/L 195-392 3049/09/07 potassium, serum 4.3 mmol/L 3.5-5.2 chloride, serum [...] <30 Encounters Code Encounter Date Provider Facility CPT-14257 Level 4 Est. Patient 09:08:17 OXYHYDROGEN WELDER Tu Landeros MD [facility] CPT-86859 Level 4 Est. Patient 14:40:19 CDT Tu Landeros MD [facility] CPT-65000 Level 4 Est. Patient 14:06:04 OXYHYDROGEN WELDER Tu Landeros MD [facility] CPT-94595 Level 3 Est. Patient 14:05:18 OXYHYDROGEN WELDER Tu Landeros MD [facility] CPT-38574 Level 3 Est. Patient 10:06:54 OXYHYDROGEN WELDER Miranda Suresh APRN [facility] CPT-57399 Level 4 Est. Patient 13:50:18 OXYHYDROGEN WELDER Tu Landeros MD [facility] CPT-79229 Level 3 Est. Patient 10:30:04 CDT Tu Landeros MD [facility] CPT-06570 Level 4 Est. Patient 11:03:38 CDT Tu Landeros MD [facility] CPT-71621 Level 3 Est. Patient 10:20:44 CDT Fab Morales DO [facility] CPT-33647 Level 4 Est. Patient 14:38:57 CDT Tu Landeros MD [facility] CPT-24795 Level 4 Est. Patient 14:27:39 OXYHYDROGEN WELDER Tu Landeros MD [facility] CPT-58060 Level 4 Est. Patient 09:45:25 CDT Tu Landeros MD [facility] CPT-66475 Level 4 Est. Patient 09:05:20 OXYHYDROGEN WELDER Tu Landeros MD [facility] CPT-03182 Level 4 Est. Patient 14:09:06 CDT Tu Landeros MD [facility] CPT-78681 Level 3 Est. Patient 13:36:54 CDT Tu Landeros MD [facility] CPT-87176 Level 3 Est. Patient 08:59:14 CDT Tu Landeros MD [facility] CPT-48919 Level 3 Est. Patient 13:48:35 CDT Fab Morales DO [facility] CPT-54034 Level 4 Est. Patient 10:05:48 CDT Tu Landeros MD [facility] CPT-63689 Level 3 Est. Patient 13:38:42 CDT Marek BANKS [facility] CPT-10119 Level 5 Est. Patient 08:08:39 CDT Jerrica FRANCIS [facility] CPT-98407 Level 4 Est. Patient 14:23:38 CDT Tu Landeros MD [facility] CPT-42248 Level 3 Est. Patient 11:44:04 CDT Tu Landeros MD [facility] CPT-49790 Level 3 Est. Patient 11:03:20 OXYHYDROGEN WELDER Tu Landeros MD [facility] CPT-00508 Level 3 Est. Patient 11:03:14 OXYHYDROGEN WELDER Tu Landeros MD [facility] CPT-88335 Level 3 Est. Patient 12:42:49 CDT Tu Landeros MD [facility] CPT-16664 Level 3 Est. Patient 11:52:06 CDT Tu Landeros MD [facility] CPT-58322 Level 3 Est. Patient 13:58:11 CDT Tu Landeros MD [facility] CPT-70640 Level 3 Est. Patient 17:50:07 CDT Fab Morales DO [facility] CPT-67150 Level 3 Est. Patient 12:06:29 CDT Elvira Cervantes MD PhD [facility] CPT-82811 Level 3 Est. Patient 15:50:32 CDT Tu Landeros MD [facility] CPT-56258 Level 4 Est. Patient 16:08:29 CDT Tu Landeros MD [facility] CPT-23198 Level 3 Est. Patient 16:04:19 CDT Tu Landeros MD [facility] CPT-57502 Level 3 Est. Patient 11:22:30 OXYHYDROGEN WELDER Tu Landeros MD [facility] CPT-04981 Level 4 Est. Patient 16:24:02 OXYHYDROGEN WELDER Tu Landeros MD [facility] CPT-99253 Level 3 Est. Patient 17:21:23 OXYHYDROGEN WELDER Tu Landeros MD [facility] Procedures Code Procedure Name Date Entry Date Standard Description CPT-36174 Magnesium - LAB USE ONLY 11:14:20 OXYHYDROGEN WELDER CPT-36444 Lipid - LAB USE ONLY 11:14:20 OXYHYDROGEN WELDER CPT-43609 HGBA1C - LAB USE ONLY 11:14:20 OXYHYDROGEN WELDER CPT-80513 CMP - LAB USE ONLY 11:14:19 OXYHYDROGEN WELDER CPT-07077 CBC - LAB USE ONLY 11:14:19 OXYHYDROGEN WELDER CPT-26427 Venipuncture Draw Fee 11:14:18 OXYHYDROGEN WELDER CPT-37993 First Vx - Ix admin for Medicare patients 16:46:52 CDT CPT-19910 Fluzone Preservative Free Intramuscular Suspension 16:46 :51 CDT CPT-94570 CBC - LAB USE ONLY 17:14:46 CDT CPT-05779 HGBA1C - LAB USE ONLY 17:14:46 CDT CPT-33359 Venipuncture Draw Fee 17:14:46 CDT CPT-G0438 Initial Annual Wellness Exam 14:13:04 CDT CPT-05974 Breathing Tx 10:06:54 OXYHYDROGEN WELDER CPT-68415 Postop F/U Visit 10:02:45 CDT CPT-LR Lesion Removal 09:02:56 CDT CPT-JTINJ Asp/Joint Injection 15:51:27 OXYHYDROGEN WELDER CPT-OV Office Visit 15:52:02 OXYHYDROGEN WELDER CPT-OV Office Visit 15:45:11 CDT CPT-000 Give Zostavax 14:09:06 CDT CPT-88300 Administration single or combination vaccine inc oral 15 :19:04 CDT CPT-48581 Zoster Vaccine (Zostavax) 15:19:04 CDT CPT-21360 Administration single or combination vaccine inc oral 20 :51:03 CDT CPT-77024 Influenza split virus > age 3 20:51:03 CDT CPT-52071 No Charge Offi Visit 14:52:03 CDT CPT-OV Office Visit 14:57:43 CDT CPT-OV Office Visit 15:22:32 CDT CPT-26639 Administration single or combination vaccine inc oral 11 :33:15 CDT CPT-37809 Influenza split virus > age 3 11:33:15 CDT
[2018-04-25] MEDS ORDERED: OMEP20CA12 PO (12:49)
[2018-04-25] MEDS ORDERED: METF-399 PO (12:49)
[2018-04-25] MEDS ORDERED: ACET-2650 PO (12:50)
[2018-04-25] MEDS ORDERED: ENAL20TA PO (12:50)
--- OUTSIDE RECORDS SUMMARY | 2018-04-25 12:50 | XMS REPORT | Clinical Summary ---
Author Author Admin, SACHI Organization [address] Address Unknown Phone Unavailable Allergies, Adverse Reactions, [...] MD DIZZINESS ICD-780.4 Inactive Tu Landeros MD LEG CRAMPS, NOCTURNAL [...] Tu Landeros MD ARTHRITIS ICD-716.90 Inactive Tu Lnaderos MD KNEE PAIN ICD-719.46 Inactive Tu Landeros MD PRESSURE ULCER UNSPECIFIED [...] Tessa Landeros MD Sinusitis - acute ICD-461.9 Inactive Tu Landeros MD Leg pain, left ICD-729.5 Tessa Landeros MD Vision impairment, both eyes, impairment level not further specified ICD- 369.20 Inactive Tu Landeros MD SHOULDER PAIN, LEFT ICD-719.41 Inactive Tu Landeros MD CONTUSION OF UNSPECIFIED SITE ICD-924.9 Inactive Tu Landeros MD Pain in unspecified foot ICD-729.5 Inactive Tu Landeros MD Shoulder pain, right ICD-719.41 Inactive Tu Landeros MD Great toe pain ICD-729.5 Inactive Tu Landeros MD Medication List Medication Instructions Start Date Stop Date Generic Name NDC Status Provider Patient Instruction MAGNESIUM OXIDE 400 MG ORAL TABLET 1 po BID MAGNESIUM OXIDE [id number] Active Tu Landeros MD Active SIMVASTATIN 20 MG ORAL TABLET 0.5 po qHS SIMVASTATIN 61968677100 Active Tu Landeros MD Active DICLOFENAC SODIUM 75 MG ORAL TABLET DELAYED RELEASE 1 po BID PRN Pain DICLOFENAC SODIUM 88418348309 No Longer Active Tu Landeros MD Active GABAPENTIN 100 MG ORAL CAPSULE 1 po TID GABAPENTIN 71333017616 Active Tu Landeros MD Active DICLOFENAC SODIUM 50 MG ORAL TABLET DELAYED RELEASE 1 po BID PRN Pain DICLOFENAC SODIUM 92144262151 No Longer Active Tu Landeros MD Active CYCLOBENZAPRINE HCL 10 MG ORAL TABLET 1 po TID PRN Muscle Spasm CYCLOBENZAPRINE HCL 74696135511 No Longer Active Tu Landeros MD Active INVOKANA 100 MG ORAL TABLET 1 po qd CANAGLIFLOZIN 71576374128 Active Tu Landeros MD Active GLIPIZIDE 5 MG ORAL TABLET 1 po qd GLIPIZIDE 86479760889 No Longer Active Tu Landeros MD Active VENLAFAXINE HCL 75 MG ORAL TABLET 1 po BID VENLAFAXINE HCL 90077127345 Active Tu Landeros MD Active GLIMEPIRIDE 1 MG ORAL TABLET 1 po qd GLIMEPIRIDE 66157115004 No Longer Active Tu Landeros MD Active TRUE METRIX BLOOD GLUCOSE TEST IN VITRO STRIP Test blood sugar BID Dx: E11.9 GLUCOSE BLOOD 04879569074 Active Tu Landeros MD Active TRUE METRIX AIR GLUCOSE METER w/Device KIT Test blood glucose BID Dx: E11.9 BLOOD GLUCOSE MONITORING SUPPL 40554583492 Active Tu Landeros MD Active TRUETEST TEST IN VITRO STRIP test blood sugar twice daily. DX 250.0 GLUCOSE BLOOD 20199104484 No Longer Active Mirna Stanley LPN Active TRUEDRAW LANCING DEVICE test blood sugar twice daily dx: 250.00 LANCET DEVICES 35988910248 No Longer Active Mirna Stanley LPN Active ENALAPRIL MALEATE 20 MG ORAL TABLET 2 po qd ENALAPRIL MALEATE 01983016947 Active Tu Landeros MD Active SUPER B COMPLEX/VITAMIN C ORAL TABLET 1 qd B COMPLEX- C 25626972689 No Longer Active Tu Landeros MD Active ASPIRIN EC 81 MG ORAL TABLET DELAYED RELEASE 1 po qd ASPIRIN 83119642067 Active Tu Landeros MD Active GLUCOSAMINE 500 MG TABS 2 po qd GLUCOSAMINE Active Tu Landeros MD Active FISH OIL 1000 MG ORAL CAPSULE 1 po qd OMEGA-3 FATTY ACIDS 44422659692 Active Tu Landeros MD Active METFORMIN HCL 1000 MG ORAL TABLET 1 po BID METFORMIN HCL 17660702709 Active Tu Landeros MD Active KLOR-CON 10 10 MEQ ORAL TABLET EXTENDED RELEASE 2 po qd POTASSIUM CHLORIDE 87942310588 Active Tu Landeros MD Active FUROSEMIDE 40 MG ORAL TABLET 1 po qd FUROSEMIDE 11246471853 Active Tu Landeros MD Active REQUIP 2 MG ORAL TABLET 1 po qHS PRN Restless legs ROPINIROLE HCL 93707510083 Active Tu Landeros MD Active REQUIP 2 MG ORAL TABLET Take one tablet at bedtime prn ROPINIROLE HCL 84507040362 No Longer Active Tu Landeros MD Active VENTOLIN HFA 108 (90 Base) MCG/ACT INHALATION AEROSOL SOLUTION 1-2 puffs every 4 hours if needed for cough/congestion ALBUTEROL SULFATE 66176484064 No Longer Active Ambika Aden APRN Active ZITHROMAX 250 MG ORAL TABLET 2 po today, then 1 po q days 2-5 AZITHROMYCIN 85371358230 No Longer Active Miranda Suresh APRN Active FLONASE 50 MCG/ACT NASAL SUSPENSION 1 spray each nostril twice daily until bottle empty FLUTICASONE PROPIONATE 99880317218 No Longer Active Tu Landeros MD Active COLACE 100 MG ORAL CAPSULE 1 po BID PRN Constipation DOCUSATE SODIUM 26678792598 Active Tu Landeros MD Active TRUERESULT BLOOD GLUCOSE w/Device KIT test blood sugar twice daily dx 250.00 BLOOD GLUCOSE MONITORING SUPPL 88812179059 No Longer Active Tu Landeros MD Active TRUEDRAW LANCING DEVICE Test twice a day dx 250.0 LANCET DEVICES 61189248489 No Longer Active Tu Landeros MD Active PREDNISONE 20 MG ORAL TABLET 2 tablets once daily for 2 days, then 1 tablet once daily for 2 days PREDNISONE 90104984641 No Longer Active Tu Landeros MD Active DICLOFENAC SODIUM 50 MG ORAL TABLET DELAYED RELEASE 1 tablet by mouth three times a day as needed DICLOFENAC SODIUM 68635557334 No Longer Active Fab Morales DO Active EMBRACE BLOOD GLUCOSE TEST IN VITRO STRIP test blood sugar twice daily DX 250.0 GLUCOSE BLOOD 98719868303 No Longer Active Tu Landeros MD Active TRUETEST TEST IN VITRO STRIP test blood sugar three times daily dx: 250.00 GLUCOSE BLOOD 02320046737 No Longer Active Suze VOGEL Active TRUERESULT BLOOD GLUCOSE w/Device KIT use to test blood sugar tid dx: 250.00 BLOOD GLUCOSE MONITORING SUPPL 25690825382 No Longer Active Suze Corey VOGEL Active ALIGN 4 MG ORAL CAPSULE 1 tid PROBIOTIC PRODUCT 55031221921 No Longer Active Shaun Sy MD Active CIPRO 500 MG ORAL TABLET 1 bid x 14 days start 09-28-13 CIPROFLOXACIN HCL 67834548896 No Longer Active Shaun Sy MD Active TRAMADOL HCL 50 MG ORAL TABLET 1-2 tablets every 6 hours as needed for pain TRAMADOL HCL 80000757575 Active Tu Landeros MD Active HYDROCODONE-ACETAMINOPHEN 5-325 MG ORAL TABLET 1 tab by mouth every 6 hours as needed for pain HYDROCODONE-ACETAMINOPHEN 52235498157 No Longer Active Tu Landeros MD Active OMEPRAZOLE 20 MG ORAL CAPSULE DELAYED RELEASE 1 po q a.m. OMEPRAZOLE 45310665058 Active Fab Morales DO Active GABAPENTIN 100 MG ORAL CAPSULE 1 po bid GABAPENTIN 47141261891 No Longer Active Tu Landeros MD Active B-12 100 MCG ORAL TABLET Take one by mouth daily CYANOCOBALAMIN 84956238471 No Longer Active Tu Landeros MD Active BACTRIM DS 800-160 MG ORAL TABLET 1 bid x 14 day start 09-28-13 SULFAMETHOXAZOLE-TRIMETHOPRIM 34734561489 No Longer Active Tu Landeros MD Active CARVEDILOL 12.5 MG ORAL TABLET 1 po BID CARVEDILOL 51886721083 Active Tu Landeros MD Active TRILIPIX 135 MG ORAL CAPSULE DELAYED RELEASE 1 q hs CHOLINE FENOFIBRATE 94096214355 Active Tu Landeros MD Active FENOFIBRATE 145 MG ORAL TABLET 1 po qd FENOFIBRATE 46269406302 No Longer Active JASPREET Perez Active OMEPRAZOLE 20 MG ORAL TABLET DELAYED RELEASE 1 PO 30 MIN BEFORE 1ST MEAL 2010 OMEPRAZOLE 04054285441 No Longer Active JASPREET Perez Active SIMVASTATIN 40 MG ORAL TABLET Take one by mouth daily SIMVASTATIN 40908995254 No Longer Active JASPREET Perez Active VENLAFAXINE HCL 75 MG ORAL TABLET 1 po BID VENLAFAXINE HCL 35305474960 No Longer Active JASPREET Perez Active CIPRO 500 MG ORAL TABLET 1 tablet by mouth twice daily CIPROFLOXACIN HCL 11430367789 No Longer Active Tu Landeros MD Active VENLAFAXINE HCL 37.5 MG ORAL TABLET 1 po BID VENLAFAXINE HCL 22147062325 No Longer Active Suze VOGEL Active LAMISIL 250 MG ORAL TABLET 1 po qd TERBINAFINE HCL 64391555658 No Longer Active Tu Landeros MD Active LORTAB 5-500 MG ORAL TABLET 1/2 to 1 tablet by mouth every 4 hours as needed for pain HYDROCODONE-ACETAMINOPHEN 60790579419 No Longer Active Tu Landeros MD Active HYDROCODONE-ACETAMINOPHEN 5-500 MG ORAL TABLET take one po Q 4-6 hours prn HYDROCODONE-ACETAMINOPHEN 99839209876 No Longer Active Tu Landeros MD Active BACTRIM DS 800-160 MG ORAL TABLET 1 po BID x 7 days SULFAMETHOXAZOLE-TRIMETHOPRIM 42464246688 No Longer Active Tu Landeros MD Active VENLAFAXINE HCL 75 MG ORAL TABLET 1 po BID VENLAFAXINE HCL 82472860396 No Longer Active Elvira Cervantes MD PhD Active TRAMADOL HCL 50 MG ORAL TABLET 1 tablets every 6 hours as needed for pain TRAMADOL HCL 36510225758 No Longer Active Tu Landeros MD Active ACCU-CHEK FASTCLIX LANCETS Use to check bloodsugar three times daily as needed LANCETS 16577658856 No Longer Active Tu Landeros MD Active ACCU-CHEK KEYONA PLUS IN VITRO STRIP Use for testing bloodsugars three times daily as needed GLUCOSE BLOOD 04733127387 No Longer Active Tu Landeros MD Active ACCU-CHEK KEYONA PLUS w/Device KIT Use for testing bloodsugars three times daily as needed BLOOD GLUCOSE MONITORING SUPPL 95894297069 No Longer Active Tu Landeros MD Active SPIRONOLACTONE 25 MG ORAL TABLET 0.5 tablet by mouth daily 09/09 SPIRONOLACTONE 28574751609 No Longer Active Tu Landeros MD Active ALPRAZOLAM 0.5 MG ORAL TABLET 1 tab every 6hrs as needed ALPRAZOLAM 92815744319 No Longer Active Tu Landeros MD Active AUGMENTIN 875-125 MG ORAL TABLET 1 tab by mouth twice daily with food AMOXICILLIN-POT CLAVULANATE 05539362153 No Longer Active Tu Landeros MD Active PREDNISONE 20 MG ORAL TABLET 2 tabs daily for 3 days, 1 tab daily for 3 days, 1/2 tab daily for 2 days PREDNISONE 45959689854 No Longer Active Tu Landeros MD Active XANAX 0.5 MG ORAL TABLET 1 tablet every 6 hrs prn ALPRAZOLAM 66508322859 No Longer Active Tu Landeros MD Active PREDNISONE 20 MG ORAL TABLET 2 tabs daily for 3 days, 1 tab daily for 3 days, 1/2 tab daily for 2 days PREDNISONE 95523918982 No Longer Active Tu Landeros MD Active TRIAMCINOLONE ACETONIDE 0.1 % EXTERNAL OINTMENT Apply to affected areas TID for up to 2 weeks TRIAMCINOLONE ACETONIDE 22248527826 No Longer Active Tu Landeros MD Active LORTAB 5-500 MG ORAL TABLET 1/2 to 1 tablet by mouth every 4 hours as needed for pain HYDROCODONE-ACETAMINOPHEN 82056666369 No Longer Active Tu Landeros MD Active MULTIVITAMINS TABS Take one by mouth daily MULTIPLE VITAMIN 78400031738 No Longer Active Tu Landeros MD Active MELATONIN 5 MG ORAL TABLET Take one by mouth daily MELATONIN 18226384569 No Longer Active Tu Landeros MD Active SOMA 350 MG ORAL TABLET 1 po q 6 hours prn spasm CARISOPRODOL 67368868563 No Longer Active Tu Landeros MD Active MECLIZINE HCL 25 MG ORAL TABLET CHEWABLE 1 four times a day as needed for dizziness MECLIZINE HCL 04232768698 No Longer Active Fba Morales DO Active ANGEL BREEZE 2 TEST IN VITRO DISK test tid prn GLUCOSE BLOOD 80258298824 No Longer Active Negra Scott RN Active REGLAN 10 MG ORAL TABLET 1 po TID PRN Nausea METOCLOPRAMIDE HCL 94176688896 No Longer Active Tu Landeros MD Active METFORMIN HCL 500 MG ORAL TABLET 1 PO BID METFORMIN HCL 75246554099 No Longer Active Tu Landeros MD Active AMBIEN 10 MG ORAL TABLET 1 tab by mouth at bedtime as needed for sleep 06/10 ZOLPIDEM TARTRATE 06367517511 No Longer Active Tu Landeros MD Active FLUOXETINE HCL 40 MG ORAL CAPSULE 1 po q day FLUOXETINE HCL 19518053577 No Longer Active Mayra Terry Active TRILIPIX 135 MG ORAL CAPSULE DELAYED RELEASE 1 po qd CHOLINE FENOFIBRATE 35338969700 No Longer Active Tu Landeros MD Active AMBIEN 10 MG ORAL TABLET 1 tab by mouth at bedtime as needed for sleep 06/10 AMBIEN 10 MG ORAL TABLET 851549 ZOLPIDEM TARTRATE Inactive METFORMIN HCL 500 MG ORAL TABLET 1 PO BID METFORMIN HCL 500 MG ORAL TABLET 454733 METFORMIN HCL Inactive REGLAN 10 MG ORAL TABLET 1 po TID PRN Nausea REGLAN 10 MG ORAL TABLET 102300 METOCLOPRAMIDE HCL Inactive MECLIZINE HCL 25 MG ORAL TABLET CHEWABLE 1 four times a day as needed for dizziness MECLIZINE HCL 25 MG ORAL TABLET CHEWABLE 519817 MECLIZINE HCL Inactive SOMA 350 MG ORAL TABLET 1 po q 6 hours prn spasm SOMA 350 MG ORAL TABLET 759730 CARISOPRODOL Inactive MELATONIN 5 MG ORAL TABLET Take one by mouth daily MELATONIN 5 MG ORAL TABLET 909041 MELATONIN Inactive MULTIVITAMINS TABS Take one by mouth daily MULTIVITAMINS TABS MULTIPLE VITAMIN Inactive LORTAB 5-500 MG ORAL TABLET 1/2 to 1 tablet by mouth every 4 hours as needed for pain LORTAB 5-500 MG ORAL TABLET 630682 HYDROCODONE-ACETAMINOPHEN Inactive XANAX 0.5 MG ORAL TABLET 1 tablet every 6 hrs prn XANAX 0.5 MG ORAL TABLET 948589 ALPRAZOLAM Inactive AUGMENTIN 875-125 MG ORAL TABLET 1 tab by mouth twice daily with food AUGMENTIN 875-125 MG ORAL TABLET 126891 AMOXICILLIN-POT CLAVULANATE Inactive ALPRAZOLAM 0.5 MG ORAL TABLET 1 tab every 6hrs as needed ALPRAZOLAM 0.5 MG ORAL TABLET 382282 ALPRAZOLAM Inactive SPIRONOLACTONE 25 MG ORAL TABLET 0.5 tablet by mouth daily 09/09 SPIRONOLACTONE 25 MG ORAL TABLET 151253 SPIRONOLACTONE Inactive ACCU-CHEK KEYONA PLUS w/Device KIT [...] times daily as needed ACCU-CHEK FASTCLIX LANCETS 51932967656 LANCETS Inactive TRAMADOL HCL 50 MG ORAL TABLET 1 tablets every 6 hours as needed for pain TRAMADOL HCL 50 MG ORAL TABLET 612957 TRAMADOL HCL Inactive VENLAFAXINE HCL 75 MG ORAL TABLET 1 po BID VENLAFAXINE HCL 75 MG ORAL TABLET 510733 VENLAFAXINE HCL Inactive HYDROCODONE-ACETAMINOPHEN 5-500 MG ORAL TABLET take one po Q 4-6 hours prn HYDROCODONE-ACETAMINOPHEN 5-500 MG ORAL TABLET 545630 HYDROCODONE-ACETAMINOPHEN Inactive LORTAB 5-500 MG ORAL TABLET 1/2 to 1 tablet by mouth every 4 hours as needed for pain LORTAB 5-500 MG ORAL TABLET 403286 HYDROCODONE-ACETAMINOPHEN Inactive LAMISIL 250 MG ORAL TABLET 1 po qd LAMISIL 250 MG ORAL TABLET 210230 TERBINAFINE HCL Inactive VENLAFAXINE HCL 37.5 MG ORAL TABLET 1 po BID VENLAFAXINE HCL 37.5 MG ORAL TABLET 844018 VENLAFAXINE HCL Inactive CIPRO 500 MG ORAL TABLET 1 tablet by mouth twice daily CIPRO 500 MG ORAL TABLET 314769 CIPROFLOXACIN HCL Inactive VENLAFAXINE HCL 75 MG ORAL TABLET 1 po BID VENLAFAXINE HCL 75 MG ORAL TABLET 454904 VENLAFAXINE HCL Inactive SIMVASTATIN 40 MG ORAL TABLET Take one by mouth daily SIMVASTATIN 40 MG ORAL TABLET 144702 SIMVASTATIN Inactive OMEPRAZOLE 20 MG ORAL TABLET DELAYED RELEASE 1 PO 30 MIN BEFORE 1ST MEAL 2010 OMEPRAZOLE 20 MG ORAL TABLET DELAYED RELEASE 733538 OMEPRAZOLE Inactive FENOFIBRATE 145 MG ORAL TABLET 1 po qd FENOFIBRATE 145 MG ORAL TABLET 348781 FENOFIBRATE Inactive BACTRIM DS 800-160 MG ORAL TABLET 1 bid x 14 day start 09-28-13 BACTRIM DS 800-160 MG ORAL TABLET 227653 SULFAMETHOXAZOLE- TRIMETHOPRIM Inactive B-12 100 MCG ORAL TABLET Take one by mouth daily B-12 100 MCG ORAL TABLET CYANOCOBALAMIN Inactive GABAPENTIN 100 MG ORAL CAPSULE 1 po bid GABAPENTIN 100 MG ORAL CAPSULE 279476 GABAPENTIN Inactive HYDROCODONE-ACETAMINOPHEN 5-325 MG ORAL TABLET 1 tab by mouth every 6 hours as needed for pain HYDROCODONE-ACETAMINOPHEN 5-325 MG ORAL TABLET 326197 HYDROCODONE-ACETAMINOPHEN Inactive CIPRO 500 MG ORAL TABLET 1 bid x 14 days start 09-28-13 CIPRO 500 MG ORAL TABLET 666070 CIPROFLOXACIN HCL Inactive ALIGN 4 MG ORAL [...] SODIUM 50 MG ORAL TABLET DELAYED RELEASE 422268 DICLOFENAC SODIUM Inactive PREDNISONE 20 MG ORAL TABLET 2 tablets once daily for 2 days, then 1 tablet once daily for 2 days PREDNISONE 20 MG ORAL TABLET 657886 PREDNISONE Inactive TRUEDRAW LANCING DEVICE Test twice a day dx 250.0 TRUEDRAW LANCING DEVICE LANCET DEVICES Inactive TRUERESULT BLOOD GLUCOSE w/Device KIT test blood sugar twice daily dx 250.00 TRUERESULT BLOOD GLUCOSE w/Device KIT BLOOD GLUCOSE MONITORING SUPPL Inactive FLONASE 50 MCG/ACT NASAL SUSPENSION 1 spray each nostril twice daily until bottle empty FLONASE 50 MCG/ACT NASAL SUSPENSION 6054532 FLUTICASONE PROPIONATE Inactive VENTOLIN HFA 108 (90 Base) MCG/ACT INHALATION AEROSOL SOLUTION 1-2 puffs every 4 hours if needed for cough/congestion VENTOLIN HFA 108 (90 Base) MCG/ACT INHALATION AEROSOL SOLUTION ALBUTEROL SULFATE Inactive REQUIP 2 MG ORAL TABLET Take one tablet at bedtime prn REQUIP 2 MG ORAL TABLET 590895 ROPINIROLE HCL Inactive SUPER B COMPLEX/VITAMIN C ORAL TABLET 1 qd SUPER B COMPLEX/VITAMIN C ORAL TABLET 18450314713 B COMPLEX-C Inactive TRUEDRAW LANCING DEVICE test blood sugar twice daily dx: 250.00 TRUEDRAW LANCING DEVICE LANCET DEVICES Inactive TRUETEST TEST IN VITRO STRIP test blood sugar twice daily. DX 250.0 TRUETEST TEST IN VITRO STRIP GLUCOSE BLOOD Inactive CYCLOBENZAPRINE HCL 10 MG ORAL TABLET 1 po TID PRN Muscle Spasm CYCLOBENZAPRINE HCL 10 MG ORAL TABLET 372946 CYCLOBENZAPRINE HCL Inactive DICLOFENAC SODIUM 50 MG ORAL TABLET DELAYED RELEASE 1 po BID PRN Pain DICLOFENAC SODIUM 50 MG ORAL TABLET DELAYED RELEASE 076433 DICLOFENAC SODIUM Inactive DICLOFENAC SODIUM 75 MG ORAL TABLET DELAYED RELEASE 1 po BID PRN Pain DICLOFENAC SODIUM 75 MG ORAL TABLET DELAYED RELEASE 180419 DICLOFENAC SODIUM Inactive TRIAMCINOLONE ACETONIDE 0.1 % EXTERNAL OINTMENT Apply to affected areas TID for up to 2 weeks TRIAMCINOLONE ACETONIDE 0.1 % EXTERNAL OINTMENT 1971008 TRIAMCINOLONE ACETONIDE Inactive PREDNISONE 20 MG ORAL TABLET 2 tabs daily for 3 days, 1 tab daily for 3 days, 1/2 tab daily for 2 days PREDNISONE 20 MG ORAL TABLET 970233 PREDNISONE Inactive PREDNISONE 20 MG ORAL TABLET 2 tabs daily for 3 days, 1 tab daily for 3 days, 1/2 tab daily for 2 days PREDNISONE 20 MG ORAL TABLET 397865 PREDNISONE Inactive BACTRIM DS 800-160 MG ORAL TABLET 1 po BID x 7 days BACTRIM DS 800-160 MG ORAL TABLET 237464 SULFAMETHOXAZOLE-TRIMETHOPRIM Inactive ZITHROMAX 250 MG ORAL TABLET 2 po today, then 1 po q days 2-5 ZITHROMAX 250 MG ORAL TABLET 991461 AZITHROMYCIN Inactive Advance Directives Directive Description Start Date DISCUSSED WITH PATIENT -- NO DECISION MADE Immunizations Vaccine Administration Date Value Standard Description Seasonal influenza vaccine, injectable, containing preservative, for > 3 years old (Afluria, FluLaval, Fluzone, Fluvirin, Fluarix, Agriflu(>=18 yo)) Fluzone (>3 yrs.) [HSP256] Influenza, seasonal, injectable influenza immunization (Flu Vax) has been administered 02/22/2012 influenza virus vaccine, unspecified formulation Seasonal influenza vaccine, injectable, containing preservative, for > 3 years old (Afluria, FluLaval, Fluzone, Fluvirin, Fluarix, Agriflu(>=18 yo)) Fluzone (>3 yrs.) [[id number]] Influenza, seasonal, injectable Vital Signs Date Name [...] ... - Chemistry sodium, serum 141 mmol/L 793-545 0090/01/16 carbon dioxide, venous blood 28.3 mmol/L 21.0-32.0 [...] 6.7 % 4.3-6.0 cholesterol, serum 106 mg/dL 091-563 2196/01/16 triglyceride, serum, fasting 173 mg/dL 30-200 HDL [...] A1c - Chemistry cholesterol, serum 135 mg/dL 871-026 2216/05/17 HDL cholesterol, serum 41 mg/dL > OR=46 triglyceride, serum, fasting 206 mg/dL <150 LDL cholesterol, serum 53 MG/DL (CALC) mg/dL <130 cholesterol/HDL ratio, serum 3.3 (calc) < OR=5.0 Lab Report: HGBA1C - Chemistry hemoglobin A1C, blood, as % of total hemoglobin 6.5 % 4.3-6.0 Encounters Code Encounter Date Provider Facility CPT-39576 Level 4 Est. Patient 13:42:02 PIPE LINE MAINTENANCE SUPERVISOR Tu Landeros MD [facility] CPT-57319 Level 3 Est. Patient 14:20:36 CDT Tu Landeros MD [facility] CPT-33467 Level 4 Est. Patient 14:28:34 CDT Tu Landeros MD [facility] CPT-36413 Level 3 Est. Patient 13:33:09 CDT Tu Landeros MD [facility] CPT-48990 Level 4 Est. Patient 14:29:21 CDT Tu Landeros MD [facility] CPT-23454 Level 4 Est. Patient 09:08:17 PIPE LINE MAINTENANCE SUPERVISOR Tu Landeros MD [facility] CPT-90447 Level 4 Est. Patient 14:40:19 CDT Tu Landeros MD [facility] CPT-18240 Level 4 Est. Patient 14:06:04 PIPE LINE MAINTENANCE SUPERVISOR Tu Landeros MD [facility] CPT-90569 Level 3 Est. Patient 14:05:18 PIPE LINE MAINTENANCE SUPERVISOR Tu Landeros MD [facility] CPT-58326 Level 3 Est. Patient 10:06:54 PIPE LINE MAINTENANCE SUPERVISOR Miranda Suresh APRN [facility] CPT-72900 Level 4 Est. Patient 13:50:18 PIPE LINE MAINTENANCE SUPERVISOR Tu Landeros MD [facility] CPT-73922 Level 3 Est. Patient 10:30:04 CDT Tu Landeros MD [facility] CPT-20470 Level 4 Est. Patient 11:03:38 CDT Tu Landeros MD [facility] CPT-81058 Level 3 Est. Patient 10:20:44 CDT Fab Morales DO [facility] CPT-44256 Level 4 Est. Patient 14:38:57 CDT Tu Landeros MD [facility] CPT-62243 Level 4 Est. Patient 14:27:39 PIPE LINE MAINTENANCE SUPERVISOR Tu Landeros MD [facility] CPT-80592 Level 4 Est. Patient 09:45:25 CDT Tu Landeros MD [facility] CPT-51235 Level 4 Est. Patient 09:05:20 PIPE LINE MAINTENANCE SUPERVISOR Tu Landeros MD [facility] CPT-27518 Level 4 Est. Patient 14:09:06 CDT Tu Landeros MD [facility] CPT-88147 Level 3 Est. Patient 13:36:54 CDT Tu Landeros MD [facility] CPT-79806 Level 3 Est. Patient 08:59:14 CDT Tu Landeros MD [facility] CPT-41361 Level 3 Est. Patient 13:48:35 CDT Fab Morales DO [facility] CPT-46609 Level 4 Est. Patient 10:05:48 CDT Tu Landeros MD [facility] CPT-16738 Level 3 Est. Patient 13:38:42 CDT Marek BANKS [facility] CPT-95047 Level 5 Est. Patient 08:08:39 CDT Jerrica FRANCIS [facility] CPT-70285 Level 4 Est. Patient 14:23:38 CDT Tu Landeros MD [facility] CPT-06354 Level 3 Est. Patient 11:44:04 CDT Tu Landeros MD [facility] CPT-86476 Level 3 Est. Patient 11:03:20 PIPE LINE MAINTENANCE SUPERVISOR Tu Landeros MD [facility] CPT-81285 Level 3 Est. Patient 11:03:14 PIPE LINE MAINTENANCE SUPERVISOR Tu Landeros MD [facility] CPT-38324 Level 3 Est. Patient 12:42:49 CDT Tu Landeros MD [facility] CPT-71677 Level 3 Est. Patient 11:52:06 CDT Tu Landeros MD [facility] CPT-50038 Level 3 Est. Patient 13:58:11 CDT Tu Landeros MD [facility] CPT-94077 Level 3 Est. Patient 17:50:07 CDT Fab Morales DO [facility] CPT-59705 Level 3 Est. Patient 12:06:29 CDT Elvira Cervantes MD, PhD [facility] CPT-57984 Level 3 Est. Patient 15:50:32 CDT Tu Landeros MD [facility] CPT-22725 Level 4 Est. Patient 16:08:29 CDT Tu Landeros MD [facility] CPT-73790 Level 3 Est. Patient 16:04:19 CDT Tu Landeros MD [facility] CPT-64172 Level 3 Est. Patient 11:22:30 PIPE LINE MAINTENANCE SUPERVISOR Tu Landeros MD [facility] CPT-35187 Level 4 Est. Patient 16:24:02 PIPE LINE MAINTENANCE SUPERVISOR Tu Landeros MD [facility] CPT-17997 Level 3 Est. Patient 17:21:23 PIPE LINE MAINTENANCE SUPERVISOR Tu Landeros MD [facility] Procedures Code Procedure Name Date Entry Date Standard Description CPT-86461 Shoulder, right, comp min 2V - XRAY USE ONLY 13:50:22 CDT CPT-G0009 Administration of Pneumococcal Vaccine 15:08:26 CDT CPT-73464 Prevnar 13 Intramuscular Suspension 15:08:26 CDT 10/08 CPT-G0439 [facility] Annual Wellness Exam 14:29:22 CDT CPT-98804 Venipuncture Draw Fee 13:15:35 CDT CPT-98655 Magnesium - LAB USE ONLY 11:14:20 PIPE LINE MAINTENANCE SUPERVISOR CPT-37738 Lipid - LAB USE ONLY 11:14:20 PIPE LINE MAINTENANCE SUPERVISOR CPT-65478 HGBA1C - LAB USE ONLY 11:14:20 PIPE LINE MAINTENANCE SUPERVISOR CPT-90384 CMP - LAB USE ONLY 11:14:19 PIPE LINE MAINTENANCE SUPERVISOR CPT-35476 CBC - LAB USE ONLY 11:14:19 PIPE LINE MAINTENANCE SUPERVISOR CPT-46787 Venipuncture Draw Fee 11:14:18 PIPE LINE MAINTENANCE SUPERVISOR CPT-99284 First Vx - Ix admin for Medicare patients 16:46:52 CDT CPT-84256 Fluzone Preservative Free Intramuscular Suspension 16:46 :51 CDT CPT-34251 CBC - LAB USE ONLY 17:14:46 CDT CPT-86079 HGBA1C - LAB USE ONLY 17:14:46 CDT CPT-30279 Venipuncture Draw Fee 17:14:46 CDT CPT-G0438 Initial Annual Wellness Exam 14:13:04 CDT CPT-07966 Breathing Tx 10:06:54 PIPE LINE MAINTENANCE SUPERVISOR CPT-72866 Postop F/U Visit 10:02:45 CDT CPT-LR Lesion Removal 09:02:56 CDT CPT-JTINJ Asp/Joint Injection 15:51:27 PIPE LINE MAINTENANCE SUPERVISOR CPT-OV Office Visit 15:52:02 PIPE LINE MAINTENANCE SUPERVISOR CPT-OV Office Visit 15:45:11 CDT CPT-000 Give Zostavax 14:09:06 CDT CPT-98064 Administration single or combination vaccine inc oral 15 :19:04 CDT CPT-10847 Zoster Vaccine (Zostavax) 15:19:04 CDT CPT-90094 Administration single or combination vaccine inc oral 20 :51:03 CDT CPT-29548 Influenza split virus > age 3 20:51:03 CDT CPT-42587 No Charge Offi Visit 14:52:03 CDT CPT-OV Office Visit 14:57:43 CDT CPT-OV Office Visit 15:22:32 CDT CPT-49242 Administration single or combination vaccine inc oral 11 :33:15 CDT CPT-06395 Influenza split virus > age 3 11:33:15 CDT
[2018-04-25] MEDS ORDERED: VNL75T PO (12:51)
--- OUTSIDE RECORDS SUMMARY | 2018-04-25 12:51 | XMS REPORT | Clinical Summary ---
Author Author Admin, SACHI Organization [email or web address] Address Unknown Phone Unavailable Allergies, Adverse Reactions, [...] ICD-728.85 Inactive Tu Landeros MD SCIATICA ICD-724.3 Tessa Landeros MD 2012 SHOULDER PAIN, LEFT ICD-719.41 Inactive Tu Landeros MD PARESTHESIA ICD-782.0 Tessa Landeros MD RASH AND OTHER NONSPECIFIC SKIN ERUPTION ICD-782.1 Inactive Tu Landeros MD FATIGUE ICD-780.79 Inactive Tu Landeros MD 2012 ARTHRITIS ICD-716.90 Inactive Tu Landeros MD KNEE [...] pain, left ICD-729.5 Inactive Tu Landeros MD PRESSURE ULCER UNSPECIFIED SITE ICD-707.00 Inactive Tu Landeros MD Medication List Medication Instructions Start Date Stop Date Generic Name NDC Status Provider Patient Instruction VENLAFAXINE HCL 37.5 MG TABS 1 po BID VENLAFAXINE HCL 93000481111 Active Tu Landeros MD Active GABAPENTIN 100 MG CAPS 1 po BID GABAPENTIN 96320786578 Active Tu Landeros MD Active REQUIP 2 MG TABS Take one tablet at bedtime prn ROPINIROLE HCL 87400956660 No Longer Active uT Landeros MD Active VENTOLIN HFA 108 (90 BASE) MCG/ACT AERS 1-2 puffs every 4 hours if needed for cough/congestion ALBUTEROL SULFATE 20342779615 No Longer Active Ambika Aden APRN Active ZITHROMAX 250 MG TAB 2 po today, then 1 po q days 2-5 AZITHROMYCIN 94766599866 No Longer Active Miradna Suresh APRN Active METFORMIN HCL 1000 MG TABS 1 tablet by mouth twice daily METFORMIN HCL 68076373767 Active Tu Landeros MD Active FLONASE 50 MCG/ACT SUSP 1 spray each nostril twice daily until bottle empty FLUTICASONE PROPIONATE 38582028136 No Longer Active Tu Landeros MD Active COLACE 100 MG CAP 1 po BID PRN Constipation DOCUSATE SODIUM 54140122889 Active Tu Landeros MD Active SIMVASTATIN 40 MG TABS 0.5 tab daily at bedtime SIMVASTATIN 90548037762 Active Tu Landeros MD Active TRUERESULT BLOOD GLUCOSE W/DEVICE KIT test blood sugar twice daily dx 250.00 BLOOD GLUCOSE MONITORING SUPPL 10285368575 No Longer Active Tu Landeros MD Active TRUEDRAW LANCING DEVICE MISC Test twice a day dx 250.0 LANCET DEVICES 13605677910 No Longer Active Tu Landeros MD Active PREDNISONE 20 MG TAB 2 tablets once daily for 2 days, then 1 tablet once daily for 2 days PREDNISONE 17996138860 No Longer Active Tu Landeros MD Active DICLOFENAC SODIUM 50 MG TBEC 1 tablet by mouth three times a day as needed DICLOFENAC SODIUM 98013004861 No Longer Active Fab Morales DO Active TRUEDRAW LANCING DEVICE MISC test blood sugar twice daily dx: 250.00 LANCET DEVICES 94933538904 Active Tu Landeros MD Active TRUETEST TEST INVITR STRP test blood sugar twice daily. DX 250.0 GLUCOSE BLOOD 37446335064 Active Tu Landeros MD Active EMBRACE BLOOD GLUCOSE TEST STRP test blood sugar twice daily DX 250.0 2014 GLUCOSE BLOOD 92887615438 No Longer Active Tu Landeros MD Active TRUETEST TEST STRP test blood sugar three times daily dx: 250.00 GLUCOSE BLOOD 28767786922 No Longer Active Suzebianca VOGEL Active TRUERESULT BLOOD GLUCOSE W/DEVICE KIT use to test blood sugar tid dx: 250.00 BLOOD GLUCOSE MONITORING SUPPL 47999690187 No Longer Active Suze Corey RMA Active ALIGN 4 MG CAPS 1 tid PROBIOTIC PRODUCT 19118409409 No Longer Active Shaun Sy MD Active CIPRO 500 MG TABS 1 bid x 14 days start 09-28-13 CIPROFLOXACIN HCL 68909613565 No Longer Active Shaun Sy MD Active TRAMADOL HCL 50 MG TABS 1-2 tablets every 6 hours as needed for pain TRAMADOL HCL 06760843779 Active Tu Landeros MD Active HYDROCODONE-ACETAMINOPHEN 5-325 MG TABS 1 tab by mouth every 6 hours as needed for pain HYDROCODONE-ACETAMINOPHEN 69082854023 No Longer Active Tu Landeros MD Active OMEPRAZOLE 20 MG CPDR 1 po q a.m. OMEPRAZOLE 08086727159 Active Tu Landeros MD Active GABAPENTIN 100 MG CAPS 1 po bid GABAPENTIN 38042022756 No Longer Active Tu Landeros MD Active B-12 100 MCG TABS Take one by mouth daily CYANOCOBALAMIN 97325575399 No Longer Active Tu Landeros MD Active BACTRIM DS 800-160 MG TABS 1 bid x 14 day start 09-28-13 SULFAMETHOXAZOLE-TRIMETHOPRIM 53563219204 No Longer Active Tu Landeros MD Active CARVEDILOL 12.5 MG TABS 1 po BID CARVEDILOL 93395503556 Active Tu Landeros MD Active SUPER B COMPLEX/VITAMIN C TABS 1 qd B COMPLEX-C 41691752628 Active JASPREET Perez Active TRILIPIX 135 MG CPDR 1 q hs CHOLINE FENOFIBRATE 08829053431 Active Tu Landeros MD Active FENOFIBRATE 145 MG TABS 1 po qd FENOFIBRATE 54571117437 No Longer Active JASPREET Perez Active OMEPRAZOLE 20 MG TBEC 1 PO 30 MIN BEFORE 1ST MEAL OMEPRAZOLE 56075075191 No Longer Active JASPREET Perez Active SIMVASTATIN 40 MG TABS Take one by mouth daily SIMVASTATIN 68930806013 No Longer Active JASPREET Perez Active VENLAFAXINE HCL 75 MG TABS 1 po BID VENLAFAXINE HCL 65460175424 No Longer Active JASPREET Perez Active CIPRO 500 MG TAB 1 tablet by mouth twice daily CIPROFLOXACIN HCL 67736846226 No Longer Active Tu Landeros MD Active VENLAFAXINE HCL 37.5 MG TABS 1 po BID VENLAFAXINE HCL 74880777294 No Longer Active Suze Nicole RMA Active LAMISIL 250 MG TAB 1 po qd TERBINAFINE HCL 74260749623 No Longer Active Tu Landeros MD Active LORTAB 5 5-500 MG TABS 1/2 to 1 tablet by mouth every 4 hours as needed for pain HYDROCODONE-ACETAMINOPHEN 81830922550 No Longer Active Tu Landeros MD Active ENALAPRIL MALEATE 20 MG TABS 1.5 po qd ENALAPRIL MALEATE 75635216532 Active Tu Landeros MD Active HYDROCODONE-ACETAMINOPHEN 5-500 MG TABS take one po Q 4-6 hours prn HYDROCODONE-ACETAMINOPHEN 88702831095 No Longer Active Tu Landeros MD Active BACTRIM DS 800-160 MG TABS 1 po BID x 7 days SULFAMETHOXAZOLE-TRIMETHOPRIM 46878049759 No Longer Active Tu Landeros MD Active VENLAFAXINE HCL 75 MG TABS 1 po BID VENLAFAXINE HCL 88310820332 No Longer Active Elvira Cervantes MD PhD Active TRAMADOL HCL 50 MG TABS 1 tablets every 6 hours as needed for pain TRAMADOL HCL 78204967732 No Longer Active Tu Landeros MD Active ACCU-CHEK FASTCLIX LANCETS MISC Use to check bloodsugar three times daily as needed LANCETS 18775386917 No Longer Active Tu Landeros MD Active ACCU-CHEK KEYONA PLUS STRP Use for testing bloodsugars three times daily as needed GLUCOSE BLOOD 39642206621 No Longer Active Tu Landeros MD Active ACCU-CHEK KEYONA PLUS W/DEVICE KIT Use for testing bloodsugars three times daily as needed BLOOD GLUCOSE MONITORING SUPPL 36193357760 No Longer Active Tu Landeros MD Active SPIRONOLACTONE 25 MG TAB 0.5 tablet by mouth daily SPIRONOLACTONE 52946528063 No Longer Active Tu Landeros MD Active ALPRAZOLAM 0.5 MG TABS 1 tab every 6hrs as needed ALPRAZOLAM 38444556048 No Longer Active Tu Landeros MD Active AUGMENTIN 875-125 MG TAB 1 tab by mouth twice daily with food AMOXICILLIN-POT CLAVULANATE 27314765184 No Longer Active Tu Landeros MD Active PREDNISONE 20 MG TAB 2 tabs daily for 3 days, 1 tab daily for 3 days, 1/2 tab daily for 2 days PREDNISONE 63806092428 No Longer Active Tu Landeros MD Active XANAX 0.5 MG TABS 1 tablet every 6 hrs prn ALPRAZOLAM 86422522179 No Longer Active Tu Landeros MD Active PREDNISONE 20 MG TAB 2 tabs daily for 3 days, 1 tab daily for 3 days, 1/2 tab daily for 2 days PREDNISONE 58804699747 No Longer Active Tu Landeros MD Active TRIAMCINOLONE ACETONIDE 0.1 % OINT Apply to affected areas TID for up to 2 weeks TRIAMCINOLONE ACETONIDE 17314228527 No Longer Active Tu Landeros MD Active LORTAB 5 5-500 MG TABS 1/2 to 1 tablet by mouth every 4 hours as needed for pain HYDROCODONE-ACETAMINOPHEN 75344480416 No Longer Active Tu Landeros MD Active MULTIVITAMINS TABS Take one by mouth daily MULTIPLE VITAMIN 11114161229 No Longer Active Tu Landeros MD Active MELATONIN 5 MG TABS Take one by mouth daily MELATONIN 45592192968 No Longer Active Tu Landeros MD Active SOMA 350 MG TAB 1 po q 6 hours prn spasm CARISOPRODOL 98963105490 No Longer Active Tu Landeros MD Active MECLIZINE HCL 25 MG CHEW TAB 1 four times a day as needed for dizziness 08/05 MECLIZINE HCL 28119196331 No Longer Active Fab Morales DO Active ANGEL BREEZE 2 TEST DISK test tid prn GLUCOSE BLOOD 34899595217 No Longer Active Negra Scott RN Active REGLAN 10 MG TAB 1 po TID PRN [place] METOCLOPRAMIDE HCL 67558335106 No Longer Active Tu Landeros MD Active METFORMIN HCL 500 MG TABS 1 PO BID METFORMIN HCL 54630488350 No Longer Active Tu Landeros MD Active AMBIEN 10 MG TAB 1 tab by mouth at bedtime as needed for sleep ZOLPIDEM TARTRATE 77452784204 No Longer Active Tu Landeros MD Active FLUOXETINE HCL 40 MG CAPS 1 po q day FLUOXETINE HCL 25600931959 No Longer Active Mayra [place] Active FISH OIL 1000 MG CAPS Take one by mouth daily OMEGA-3 FATTY ACIDS 97641759967 Active Tu Landeros MD Active GLUCOSAMINE 500 MG TABS Take 2 tab po qd GLUCOSAMINE 05212850143 Active Tu Landeros MD Active TRILIPIX 135 MG CPDR 1 po qd CHOLINE FENOFIBRATE 67083219611 No Longer Active Tu Landeros MD Active ASPIRIN 81 MG CHEW TAB 1 tablet by mouth daily ASPIRIN 11409561554 Active Tu Landeros MD Active FUROSEMIDE 40 MG TAB 1 tablet by mouth daily FUROSEMIDE 77288783877 Active Tu Landeros MD Active KLOR-CON 10 10 MEQ CR-TABS TAKE 2 TABS DAILY POTASSIUM CHLORIDE 51486214651 Active Tu Landeros MD Active AMBIEN 10 MG TAB 1 tab by mouth at bedtime as needed for sleep AMBIEN 10 MG TAB 297957 ZOLPIDEM TARTRATE Inactive METFORMIN HCL 500 MG TABS 1 PO BID METFORMIN HCL 500 MG TABS 397074 METFORMIN HCL Inactive REGLAN 10 MG TAB 1 po TID PRN [place]ausea REGLAN 10 MG TAB 652180 METOCLOPRAMIDE HCL Inactive MECLIZINE HCL 25 MG CHEW TAB 1 four times a day as needed for dizziness 08/05 MECLIZINE HCL 25 MG CHEW TAB 572444 MECLIZINE HCL Inactive SOMA 350 MG TAB 1 po q 6 hours prn spasm SOMA 350 MG TAB 808007 CARISOPRODOL Inactive MELATONIN 5 MG TABS Take one by mouth daily MELATONIN 5 MG TABS 324545 MELATONIN Inactive MULTIVITAMINS TABS Take one by mouth daily MULTIVITAMINS TABS MULTIPLE VITAMIN Inactive LORTAB 5 5-500 MG TABS 1/2 to 1 tablet by mouth every 4 hours as needed for pain LORTAB 5 5-500 MG TABS HYDROCODONE- ACETAMINOPHEN Inactive XANAX 0.5 MG TABS 1 tablet every 6 hrs prn XANAX 0.5 MG TABS 548868 ALPRAZOLAM Inactive AUGMENTIN 875-125 MG TAB 1 tab by mouth twice daily with food AUGMENTIN 875-125 MG TAB 463171 AMOXICILLIN-POT CLAVULANATE Inactive ALPRAZOLAM 0.5 MG TABS 1 tab every 6hrs as needed ALPRAZOLAM 0.5 MG TABS 191266 ALPRAZOLAM Inactive SPIRONOLACTONE 25 MG TAB 0.5 tablet by mouth daily SPIRONOLACTONE 25 MG TAB 797765 SPIRONOLACTONE Inactive ACCU-CHEK KEYONA PLUS W/DEVICE KIT Use for testing bloodsugars three times daily as needed ACCU-CHEK KEYONA PLUS W/DEVICE KIT BLOOD GLUCOSE MONITORING SUPPL Inactive ACCU-CHEK KEYONA PLUS STRP Use for testing bloodsugars three times daily as needed ACCU-CHEK KEYONA PLUS STRP GLUCOSE BLOOD Inactive ACCU-CHEK FASTCLIX LANCETS MISC Use to check bloodsugar three times daily as needed ACCU-CHEK FASTCLIX LANCETS MISC 07204178940 [facility] Inactive TRAMADOL HCL 50 MG TABS 1 tablets every 6 hours as needed for pain TRAMADOL HCL 50 MG TABS 318223 TRAMADOL HCL Inactive VENLAFAXINE HCL 75 MG TABS 1 po BID VENLAFAXINE HCL 75 MG TABS 688146 VENLAFAXINE HCL Inactive HYDROCODONE-ACETAMINOPHEN 5-500 MG TABS take one po Q 4-6 hours prn HYDROCODONE-ACETAMINOPHEN 5-500 MG TABS HYDROCODONE- ACETAMINOPHEN Inactive LORTAB 5 5-500 MG TABS 1/2 to 1 tablet by mouth every 4 hours as needed for pain LORTAB 5 5-500 MG TABS HYDROCODONE- ACETAMINOPHEN Inactive LAMISIL 250 MG TAB 1 po qd LAMISIL 250 MG TAB 362104 TERBINAFINE HCL Inactive VENLAFAXINE HCL 37.5 MG TABS 1 po BID VENLAFAXINE HCL 37.5 MG TABS 622430 VENLAFAXINE HCL Inactive CIPRO 500 MG TAB 1 tablet by mouth twice daily CIPRO 500 MG TAB 272799 CIPROFLOXACIN HCL Inactive VENLAFAXINE HCL 75 MG TABS 1 po BID VENLAFAXINE HCL 75 MG TABS 949365 VENLAFAXINE HCL Inactive SIMVASTATIN 40 MG TABS Take one by mouth daily SIMVASTATIN 40 MG TABS 503340 SIMVASTATIN Inactive OMEPRAZOLE 20 MG TBEC 1 PO 30 MIN BEFORE 1ST MEAL OMEPRAZOLE 20 MG TBEC 336839 OMEPRAZOLE Inactive FENOFIBRATE 145 MG TABS 1 po qd FENOFIBRATE 145 MG TABS 270969 FENOFIBRATE Inactive BACTRIM DS 800-160 MG TABS 1 bid x 14 day start 09-28-13 BACTRIM DS 800-160 MG TABS 450604 SULFAMETHOXAZOLE-TRIMETHOPRIM Inactive B-12 100 MCG TABS Take one by mouth daily B-12 100 MCG TABS CYANOCOBALAMIN Inactive GABAPENTIN 100 MG CAPS 1 po bid GABAPENTIN 100 MG CAPS 575272 GABAPENTIN Inactive HYDROCODONE-ACETAMINOPHEN 5-325 MG TABS 1 tab by mouth every 6 hours as needed for pain HYDROCODONE-ACETAMINOPHEN 5-325 MG TABS 598349 HYDROCODONE-ACETAMINOPHEN Inactive CIPRO 500 MG TABS 1 bid x 14 days start 814 CIPRO 500 MG TABS 988998 CIPROFLOXACIN HCL Inactive ALIGN 4 MG CAPS [...] as needed DICLOFENAC SODIUM 50 MG TBEC 815688 DICLOFENAC SODIUM Inactive PREDNISONE 20 MG TAB 2 tablets once daily for 2 days, then 1 tablet once daily for 2 days PREDNISONE 20 MG TAB 622292 PREDNISONE Inactive TRUEDRAW LANCING DEVICE MISC Test [...] at bedtime prn REQUIP 2 MG TABS 948147 ROPINIROLE HCL Inactive TRIAMCINOLONE ACETONIDE 0.1 % OINT Apply to affected areas TID for up to 2 weeks TRIAMCINOLONE ACETONIDE 0.1 % OINT 1469554 TRIAMCINOLONE ACETONIDE Inactive PREDNISONE 20 MG TAB 2 tabs daily for 3 days, 1 tab daily for 3 days, 1/2 tab daily for 2 days PREDNISONE 20 MG TAB 307186 PREDNISONE Inactive PREDNISONE 20 MG TAB 2 tabs daily for 3 days, 1 tab daily for 3 days, 1/2 tab daily for 2 days PREDNISONE 20 MG TAB 035189 PREDNISONE Inactive BACTRIM DS 800-160 MG TABS 1 po BID x 7 days BACTRIM DS 800-160 MG TABS 252996 SULFAMETHOXAZOLE-TRIMETHOPRIM Inactive ZITHROMAX 250 MG TAB 2 po today, then 1 po q days 2-5 ZITHROMAX 250 MG TAB 4458250 AZITHROMYCIN Inactive Advance Directives Directive Description Start Date DISCUSSED WITH PATIENT -- NO DECISION MADE Immunizations Vaccine Administration Date Value Standard Description Seasonal influenza vaccine, injectable, containing preservative, for > 3 years old (Afluria, FluLaval, Fluzone, Fluvirin, Fluarix, Agriflu(>=18 yo)) Fluzone (>3 yrs.) [[id number]] Influenza, seasonal, injectable influenza immunization (Flu Vax) has been administered 02/22/2012 influenza virus vaccine, unspecified formulation Seasonal influenza vaccine, injectable, containing preservative, for > 3 years old (Afluria, FluLaval, Fluzone, Fluvirin, Fluarix, Agriflu(>=18 yo)) Fluzone (>3 yrs.) [[id number]] Influenza, seasonal, injectable Vital Signs Date Name [...] Weight Measured blood pressure, diastolic - 8462-4 84 mm[Hg] [...] 7.4 % 4.3-6.0 sodium, serum 140 mmol/L 874-365 8203/09/07 potassium, serum 4.3 mmol/L 3.5-5.2 chloride, serum 104 mmol/L 98-107 carbon dioxide, venous blood 27.7 mmol/L 21.0-32.0 blood glucose 156 mg/dL 65-110 calcium, serum 9.3 mg/dL 8.5-10.1 urea nitrogen, blood 23 mg/dL 7-18 creatinine, serum 1.21 mg/dL 0.55-1.30 Lab Report: Lipid Panel, Comp. Metabolic Panel - Chemistry cholesterol, serum 124 mg/dL 273-678 8128/01/12 triglyceride, serum, fasting 135 mg/dL 30-200 HDL cholesterol, serum 41 mg/dL 32-96 LDL cholesterol, serum 56 mg/dL 0-130 sodium, serum 140 mmol/L 155-201 6426/01/12 carbon dioxide, venous blood 27.7 mmol/L 21.0-32.0 potassium, serum 4.5 mmol/L 3.5-5.2 chloride, serum 104 mmol/L 98-107 blood glucose 139 mg/dL 65-110 urea nitrogen, blood 16 mg/dL 7-18 alanine aminotransferase (SGPT), serum 32 U/L 12-78 aspartate aminotransferase (SGOT), serum 25 U/L 15-37 calcium, serum 9.1 mg/dL 8.5-10.1 bilirubin, serum, total 0.50 mg/dL 0.00-1.00 Encounters Code Encounter Date Provider Facility CPT-12910 Level 4 Est. Patient 14:40:19 CDT Tu Landeros MD [facility] CPT-69506 Level 4 Est. Patient 14:06:04 PREVENTIVE MEDICINE PHYSICIAN Tu Landeros MD [facility] CPT-95453 Level 3 Est. Patient 14:05:18 PREVENTIVE MEDICINE PHYSICIAN Tu Landeros MD [facility] CPT-67279 Level 3 Est. Patient 10:06:54 PREVENTIVE MEDICINE PHYSICIAN Miranda Suresh APRN [facility] CPT-25284 Level 4 Est. Patient 13:50:18 PREVENTIVE MEDICINE PHYSICIAN Tu Landeros MD [facility] CPT-44526 Level 3 Est. Patient 10:30:04 CDT Tu Landeros MD [facility] CPT-51823 Level 4 Est. Patient 11:03:38 CDT Tu Landeros MD [facility] CPT-80020 Level 3 Est. Patient 10:20:44 CDT Fab Morales DO [facility] CPT-00953 Level 4 Est. Patient 14:38:57 CDT Tu Landeros MD [facility] CPT-28991 Level 4 Est. Patient 14:27:39 PREVENTIVE MEDICINE PHYSICIAN Tu Landeros MD [facility] CPT-84892 Level 4 Est. Patient 09:45:25 CDT Tu Landeros MD [facility] CPT-09556 Level 4 Est. Patient 09:05:20 PREVENTIVE MEDICINE PHYSICIAN Tu Landeros MD [facility] CPT-34063 Level 4 Est. Patient 14:09:06 CDT Tu Landeros MD [facility] CPT-53831 Level 3 Est. Patient 13:36:54 CDT Tu Landeros MD [facility] CPT-87681 Level 3 Est. Patient 08:59:14 CDT Tu Landeros MD [facility] CPT-93493 Level 3 Est. Patient 13:48:35 CDT Fab Morales DO [facility] CPT-14356 Level 4 Est. Patient 10:05:48 CDT Tu Landeros MD [facility] CPT-06832 Level 3 Est. Patient 13:38:42 CDT Marek BANKS [facility] CPT-01247 Level 5 Est. Patient 08:08:39 CDT Jerrica FRANCIS [facility] CPT-75418 Level 4 Est. Patient 14:23:38 CDT Tu Landeros MD [facility] CPT-38114 Level 3 Est. Patient 11:44:04 CDT Tu Landeros MD [facility] CPT-41416 Level 3 Est. Patient 11:03:20 PREVENTIVE MEDICINE PHYSICIAN Tu Landeros MD [facility] CPT-92878 Level 3 Est. Patient 11:03:14 PREVENTIVE MEDICINE PHYSICIAN Tu Landeros MD [facility] CPT-59239 Level 3 Est. Patient 12:42:49 CDT Tu Landeros MD [facility] CPT-86678 Level 3 Est. Patient 11:52:06 CDT Tu Landeros MD [facility] CPT-46887 Level 3 Est. Patient 13:58:11 CDT Tu Landeros MD [facility] CPT-75248 Level 3 Est. Patient 17:50:07 CDT Fab Morales DO [facility] CPT-78401 Level 3 Est. Patient 12:06:29 CDT Elvira Cervantes MD PhD [facility] CPT-73070 Level 3 Est. Patient 15:50:32 CDT Tu Landeros MD [facility] CPT-11378 Level 4 Est. Patient 16:08:29 CDT Tu Landeros MD [facility] CPT-91116 Level 3 Est. Patient 16:04:19 CDT Tu Landeros MD [facility] CPT-63909 Level 3 Est. Patient 11:22:30 PREVENTIVE MEDICINE PHYSICIAN Tu Landeros MD [facility] CPT-49968 Level 4 Est. Patient 16:24:02 PREVENTIVE MEDICINE PHYSICIAN Tu Landeros MD [facility] CPT-88679 Level 3 Est. Patient 17:21:23 PREVENTIVE MEDICINE PHYSICIAN Tu Landeros MD [facility] Procedures Code Procedure Name Date Entry Date Standard Description CPT-86384 CBC - LAB USE ONLY 17:14:46 CDT CPT-10809 HGBA1C - LAB USE ONLY 17:14:46 CDT CPT-43669 Venipuncture Draw Fee 17:14:46 CDT CPT-G0438 Initial Annual Wellness Exam 14:13:04 CDT CPT-27865 Breathing Tx 10:06:54 PREVENTIVE MEDICINE PHYSICIAN CPT-57610 Postop F/U Visit 10:02:45 CDT CPT-LR Lesion Removal 09:02:56 CDT CPT-JTINJ Asp/Joint Injection 15:51:27 PREVENTIVE MEDICINE PHYSICIAN CPT-OV Office Visit 15:52:02 PREVENTIVE MEDICINE PHYSICIAN CPT-OV Office Visit 15:45:11 CDT CPT-000 Give Zostavax 14:09:06 CDT CPT-65712 Administration single or combination vaccine inc oral 15 :19:04 CDT CPT-22861 Zoster Vaccine (Zostavax) 15:19:04 CDT CPT-20749 Administration single or combination vaccine inc oral 20 :51:03 CDT CPT-08536 Influenza split virus > age 3 20:51:03 CDT CPT-14604 No Charge Offi Visit 14:52:03 CDT CPT-OV Office Visit 14:57:43 CDT CPT-OV Office Visit 15:22:32 CDT CPT-58752 Administration single or combination vaccine inc oral 11 :33:15 CDT CPT-90397 Influenza split virus > age 3 11:33:15 CDT
[2018-04-25] MEDS ORDERED: CANA100T PO (12:52)
[2018-04-25] MEDS ORDERED: CARV12.53 PO (12:52)
--- OUTSIDE RECORDS SUMMARY | 2018-04-25 12:52 | XMS REPORT | Clinical Summary ---
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 Tessa Landeros MD ONYCHOMYCOSIS ICD-110.1 Tessa Landeros [...] Sebaceous cyst ICD-706.2 Inactive Tu Landeros MD Medication List Medication Instructions Start Date Stop Date Generic Name NDC Status Provider Patient Instruction VENTOLIN HFA 108 (90 BASE) MCG/ACT AERS 1-2 puffs every 4 hours if needed for cough/congestion ALBUTEROL SULFATE 16023335048 No Longer Active Ambika Aden APRN Active ZITHROMAX 250 MG TAB 2 po today, then 1 po q days 2-5 AZITHROMYCIN 30543245747 No Longer Active Miranda Suresh APRN Active METFORMIN HCL 1000 MG TABS 1 tablet by mouth twice daily METFORMIN HCL 48460543922 Active Tu Landeros MD Active FLONASE 50 MCG/ACT SUSP 1 spray each nostril twice daily until bottle empty FLUTICASONE PROPIONATE 09589023779 No Longer Active Tu Landeros MD Active COLACE 100 MG CAP 1 po BID PRN Constipation DOCUSATE SODIUM 04621714190 Active Tu Landeros MD Active SIMVASTATIN 40 MG TABS 0.5 tab daily at bedtime SIMVASTATIN 94177022511 Active Tu Landeros MD Active TRUERESULT BLOOD GLUCOSE W/DEVICE KIT test blood sugar twice daily dx 250.00 BLOOD GLUCOSE MONITORING SUPPL 88065846218 No Longer Active Tu Landeros MD Active TRUEDRAW LANCING DEVICE MISC Test twice a day dx 250.0 LANCET DEVICES 75781194327 No Longer Active Tu Landeros MD Active PREDNISONE 20 MG TAB 2 tablets once daily for 2 days, then 1 tablet once daily for 2 days PREDNISONE 35939174231 No Longer Active Tu Landeros MD Active DICLOFENAC SODIUM 50 MG TBEC 1 tablet by mouth three times a day as needed DICLOFENAC SODIUM 63425951973 No Longer Active Fab Morales DO Active TRUEDRAW LANCING DEVICE MISC test blood sugar twice daily dx: 250.00 LANCET DEVICES 86610982539 Active Tu Landeros MD Active TRUETEST TEST INVITR STRP test blood sugar twice daily. DX 250.0 GLUCOSE BLOOD 54796607611 Active Tu Landeros MD Active EMBRACE BLOOD GLUCOSE TEST STRP test blood sugar twice daily DX 250.0 2014 GLUCOSE BLOOD 07325697935 No Longer Active Tu Landeros MD Active TRUETEST TEST STRP test blood sugar three times daily dx: 250.00 GLUCOSE BLOOD 00701005721 No Longer Active Suzebianca VOGEL Active TRUERESULT BLOOD GLUCOSE W/DEVICE KIT use to test blood sugar tid dx: 250.00 BLOOD GLUCOSE MONITORING SUPPL 76491790922 No Longer Active Suze Corey RMA Active ALIGN 4 MG CAPS 1 tid PROBIOTIC PRODUCT 62770837367 No Longer Active Shaun Sy MD Active CIPRO 500 MG TABS 1 bid x 14 days start 09-28-13 CIPROFLOXACIN HCL 43916901578 No Longer Active Shaun Sy MD Active TRAMADOL HCL 50 MG TABS 1-2 tablets every 6 hours as needed for pain TRAMADOL HCL 49723332160 Active Tu Landeros MD Active HYDROCODONE-ACETAMINOPHEN 5-325 MG TABS 1 tab by mouth every 6 hours as needed for pain HYDROCODONE-ACETAMINOPHEN 47885640947 No Longer Active Tu Landeros MD Active OMEPRAZOLE 20 MG CPDR 1 po q a.m. OMEPRAZOLE 55375384614 Active Tu Landeros MD Active GABAPENTIN 100 MG CAPS 1 po bid GABAPENTIN 44256295895 No Longer Active Tu Landeros MD Active B-12 100 MCG TABS Take one by mouth daily CYANOCOBALAMIN 45804440220 No Longer Active Tu Landeros MD Active GABAPENTIN 100 MG CAPS by mouth twice a day GABAPENTIN 64470952352 Active Tiffanie Doyle Active BACTRIM DS 800-160 MG TABS 1 bid x 14 day start 14 SULFAMETHOXAZOLE-TRIMETHOPRIM 37526291444 No Longer Active Tu Landeros MD Active CARVEDILOL 12.5 MG TABS 1 po BID CARVEDILOL 53729932708 Active Kofilaura Fatumashahid PACKAGING ENGINEER Active SUPER B COMPLEX/VITAMIN C TABS 1 qd B COMPLEX-C 83960182719 Active JASPREET Perez Active TRILIPIX 135 MG CPDR 1 q hs CHOLINE FENOFIBRATE 31079215346 Active Tu Landeros MD Active FENOFIBRATE 145 MG TABS 1 po qd FENOFIBRATE 78797637553 No Longer Active JASPREET Perez Active OMEPRAZOLE 20 MG TBEC 1 PO 30 MIN BEFORE 1ST MEAL OMEPRAZOLE 87325321255 No Longer Active JASPREET Perez Active SIMVASTATIN 40 MG TABS Take one by mouth daily SIMVASTATIN 87602060401 No Longer Active JASPREET Perez Active VENLAFAXINE HCL 37.5 MG TABS 1 bid VENLAFAXINE HCL 77122213672 Active Tu Landeros MD Active VENLAFAXINE HCL 75 MG TABS 1 po BID VENLAFAXINE HCL 70323576464 No Longer Active JASPREET Perez Active CIPRO 500 MG TAB 1 tablet by mouth twice daily CIPROFLOXACIN HCL 84405617640 No Longer Active Tu Landeros MD Active VENLAFAXINE HCL 37.5 MG TABS 1 po BID VENLAFAXINE HCL 14801308934 No Longer Active Suze Corey RMA Active LAMISIL 250 MG TAB 1 po qd TERBINAFINE HCL 56550303620 No Longer Active uT Landeros MD Active LORTAB 5 5-500 MG TABS 1/2 to 1 tablet by mouth every 4 hours as needed for pain HYDROCODONE-ACETAMINOPHEN 38079381756 No Longer Active uT Landeros MD Active ENALAPRIL MALEATE 20 MG TABS 1.5 po qd ENALAPRIL MALEATE 03404556285 Active Tu Landeros MD Active HYDROCODONE-ACETAMINOPHEN 5-500 MG TABS take one po Q 4-6 hours prn HYDROCODONE-ACETAMINOPHEN 31124649499 No Longer Active Tu Landeros MD Active BACTRIM DS 800-160 MG TABS 1 po BID x 7 days SULFAMETHOXAZOLE-TRIMETHOPRIM 03063953644 No Longer Active Tu Landeros MD Active VENLAFAXINE HCL 75 MG TABS 1 po BID VENLAFAXINE HCL 71796414226 No Longer Active Elvira Cervantes MD PhD Active TRAMADOL HCL 50 MG TABS 1 tablets every 6 hours as needed for pain TRAMADOL HCL 77282926600 No Longer Active Tu Landeros MD Active ACCU-CHEK FASTCLIX LANCETS MISC Use to check bloodsugar three times daily as needed LANCETS 44971927396 No Longer Active Tu Landeros MD Active ACCU-CHEK KEYONA PLUS STRP Use for testing bloodsugars three times daily as needed GLUCOSE BLOOD 54923085911 No Longer Active Tu Landeros MD Active ACCU-CHEK KEYONA PLUS W/DEVICE KIT Use for testing bloodsugars three times daily as needed BLOOD GLUCOSE MONITORING SUPPL 90596839187 No Longer Active Tu Landeros MD Active SPIRONOLACTONE 25 MG TAB 0.5 tablet by mouth daily SPIRONOLACTONE 10645299935 No Longer Active Tu Landeros MD Active ALPRAZOLAM 0.5 MG TABS 1 tab every 6hrs as needed ALPRAZOLAM 26913043221 No Longer Active Tu Landeros MD Active AUGMENTIN 875-125 MG TAB 1 tab by mouth twice daily with food AMOXICILLIN-POT CLAVULANATE 35034798465 No Longer Active Tu Landeros MD Active PREDNISONE 20 MG TAB 2 tabs daily for 3 days, 1 tab daily for 3 days, 1/2 tab daily for 2 days PREDNISONE 25738539787 No Longer Active Tu Landeros MD Active XANAX 0.5 MG TABS 1 tablet every 6 hrs prn ALPRAZOLAM 42480265873 No Longer Active Tu Landeros MD Active PREDNISONE 20 MG TAB 2 tabs daily for 3 days, 1 tab daily for 3 days, 1/2 tab daily for 2 days PREDNISONE 97934957604 No Longer Active Tu Landeros MD Active TRIAMCINOLONE ACETONIDE 0.1 % OINT Apply to affected areas TID for up to 2 weeks TRIAMCINOLONE ACETONIDE 39286282640 No Longer Active Tu Landeros MD Active LORTAB 5 5-500 MG TABS 1/2 to 1 tablet by mouth every 4 hours as needed for pain HYDROCODONE-ACETAMINOPHEN 13040093074 No Longer Active Tu Landeros MD Active MULTIVITAMINS TABS Take one by mouth daily MULTIPLE VITAMIN 26804286665 No Longer Active Tu Landeros MD Active MELATONIN 5 MG TABS Take one by mouth daily MELATONIN 75960342556 No Longer Active Tu Landeros MD Active SOMA 350 MG TAB 1 po q 6 hours prn spasm CARISOPRODOL 59197806619 No Longer Active Tu Landeros MD Active MECLIZINE HCL 25 MG CHEW TAB 1 four times a day as needed for dizziness 08/05 MECLIZINE HCL 88879898114 No Longer Active Fab Morales DO Active ANGEL BREEZE 2 TEST DISK test tid prn GLUCOSE BLOOD 93175345323 No Longer Active Negra Scott RN Active REGLAN 10 MG TAB 1 po TID PRN [place] METOCLOPRAMIDE HCL 70984423791 No Longer Active Tu Landeros MD Active METFORMIN HCL 500 MG TABS 1 PO BID METFORMIN HCL 14916966885 No Longer Active Tu Landeros MD Active AMBIEN 10 MG TAB 1 tab by mouth at bedtime as needed for sleep ZOLPIDEM TARTRATE 74524296899 No Longer Active Tu Landeros MD Active FLUOXETINE HCL 40 MG CAPS 1 po q day FLUOXETINE HCL 17666616690 No Longer Active Mayra Terry Active FISH OIL 1000 MG CAPS Take one by mouth daily OMEGA-3 FATTY ACIDS 68021530036 Active Tu Landeros MD Active GLUCOSAMINE 500 MG TABS Take 2 tab po qd GLUCOSAMINE 07855945550 Active Tu Landeros MD Active TRILIPIX 135 MG CPDR 1 po qd CHOLINE FENOFIBRATE 70976279933 No Longer Active Tu Landeros MD Active ASPIRIN 81 MG CHEW TAB 1 tablet by mouth daily ASPIRIN 82110461509 Active Tu Landeros MD Active FUROSEMIDE 40 MG TAB 1 tablet by mouth daily FUROSEMIDE 31171911020 Active Tu Landeros MD Active REQUIP 2 MG TABS Take one tablet at bedtime prn ROPINIROLE HCL 05753113390 Active Tu Landeros MD Active KLOR-CON 10 10 MEQ CR-TABS TAKE 2 TABS DAILY POTASSIUM CHLORIDE 98037061697 Active Tu Landeros MD Active AMBIEN 10 MG TAB 1 tab by mouth at bedtime as needed for sleep AMBIEN 10 MG TAB 460401 ZOLPIDEM TARTRATE Inactive METFORMIN HCL 500 MG TABS 1 PO BID METFORMIN HCL 500 MG TABS 206810 METFORMIN HCL Inactive REGLAN 10 MG TAB 1 po TID PRN Nausea REGLAN 10 MG TAB 456316 METOCLOPRAMIDE HCL Inactive MECLIZINE HCL 25 MG CHEW TAB 1 four times a day as needed for dizziness 08/05 MECLIZINE HCL 25 MG CHEW TAB 588096 MECLIZINE HCL Inactive SOMA 350 MG TAB 1 po q 6 hours prn spasm SOMA 350 MG TAB 939949 CARISOPRODOL Inactive MELATONIN 5 MG TABS Take one by mouth daily MELATONIN 5 MG TABS 843216 MELATONIN Inactive MULTIVITAMINS TABS Take one by mouth daily MULTIVITAMINS TABS MULTIPLE VITAMIN Inactive LORTAB 5 5-500 MG TABS 1/2 to 1 tablet by mouth every 4 hours as needed for pain LORTAB 5 5-500 MG TABS HYDROCODONE- ACETAMINOPHEN Inactive XANAX 0.5 MG TABS 1 tablet every 6 hrs prn XANAX 0.5 MG TABS 970955 ALPRAZOLAM Inactive AUGMENTIN 875-125 MG TAB 1 tab by mouth twice daily with food AUGMENTIN 875-125 MG TAB 145621 AMOXICILLIN-POT CLAVULANATE Inactive ALPRAZOLAM 0.5 MG TABS 1 tab every 6hrs as needed ALPRAZOLAM 0.5 MG TABS 281180 ALPRAZOLAM Inactive SPIRONOLACTONE 25 MG TAB 0.5 tablet by mouth daily SPIRONOLACTONE 25 MG TAB 700264 SPIRONOLACTONE Inactive ACCU-CHEK KEYONA PLUS W/DEVICE KIT Use for testing bloodsugars three times daily as needed ACCU-CHEK KEYONA PLUS W/DEVICE KIT BLOOD GLUCOSE MONITORING SUPPL Inactive ACCU-CHEK KEYONA PLUS STRP Use for testing bloodsugars three times daily as needed ACCU-CHEK KEYONA PLUS STRP GLUCOSE BLOOD Inactive ACCU-CHEK FASTCLIX LANCETS MISC Use to check bloodsugar three times daily as needed ACCU-CHEK FASTCLIX LANCETS MISC 92228923056 LANCETS Inactive TRAMADOL HCL 50 MG TABS 1 tablets every 6 hours as needed for pain TRAMADOL HCL 50 MG TABS 789499 TRAMADOL HCL Inactive VENLAFAXINE HCL 75 MG TABS 1 po BID VENLAFAXINE HCL 75 MG TABS 153153 VENLAFAXINE HCL Inactive HYDROCODONE-ACETAMINOPHEN 5-500 MG TABS take one po Q 4-6 hours prn HYDROCODONE-ACETAMINOPHEN 5-500 MG TABS HYDROCODONE- ACETAMINOPHEN Inactive LORTAB 5 5-500 MG TABS 1/2 to 1 tablet by mouth every 4 hours as needed for pain LORTAB 5 5-500 MG TABS HYDROCODONE- ACETAMINOPHEN Inactive LAMISIL 250 MG TAB 1 po qd LAMISIL 250 MG TAB 548271 TERBINAFINE HCL Inactive VENLAFAXINE HCL 37.5 MG TABS 1 po BID VENLAFAXINE HCL 37.5 MG TABS 802147 VENLAFAXINE HCL Inactive CIPRO 500 MG TAB 1 tablet by mouth twice daily CIPRO 500 MG TAB 981147 CIPROFLOXACIN HCL Inactive VENLAFAXINE HCL 75 MG TABS 1 po BID VENLAFAXINE HCL 75 MG TABS 789477 VENLAFAXINE HCL Inactive SIMVASTATIN 40 MG TABS Take one by mouth daily SIMVASTATIN 40 MG TABS 992684 SIMVASTATIN Inactive OMEPRAZOLE 20 MG TBEC 1 PO 30 MIN BEFORE 1ST MEAL OMEPRAZOLE 20 MG TBEC 968159 OMEPRAZOLE Inactive FENOFIBRATE 145 MG TABS 1 po qd FENOFIBRATE 145 MG TABS 248830 FENOFIBRATE Inactive BACTRIM DS 800-160 MG TABS 1 bid x 14 day start 09-28-13 BACTRIM DS 800-160 MG TABS 067596 SULFAMETHOXAZOLE-TRIMETHOPRIM Inactive B-12 100 MCG TABS Take one by mouth daily B-12 100 MCG TABS CYANOCOBALAMIN Inactive GABAPENTIN 100 MG CAPS 1 po bid GABAPENTIN 100 MG CAPS 823721 GABAPENTIN Inactive HYDROCODONE-ACETAMINOPHEN 5-325 MG TABS 1 tab by mouth every 6 hours as needed for pain HYDROCODONE-ACETAMINOPHEN 5-325 MG TABS 231612 HYDROCODONE-ACETAMINOPHEN Inactive CIPRO 500 MG TABS 1 bid x 14 days start 09-28-13 CIPRO 500 MG TABS 506423 CIPROFLOXACIN HCL Inactive ALIGN 4 MG CAPS [...] as needed DICLOFENAC SODIUM 50 MG TBEC 983479 DICLOFENAC SODIUM Inactive PREDNISONE 20 MG TAB 2 tablets once daily for 2 days, then 1 tablet once daily for 2 days PREDNISONE 20 MG TAB 920753 PREDNISONE Inactive TRUEDRAW LANCING DEVICE MISC Test [...] (90 BASE) MCG/ACT AERS ALBUTEROL SULFATE Inactive TRIAMCINOLONE ACETONIDE 0.1 % OINT Apply to affected areas TID for up to 2 weeks TRIAMCINOLONE ACETONIDE 0.1 % OINT 8089262 TRIAMCINOLONE ACETONIDE Inactive PREDNISONE 20 MG TAB 2 tabs daily for 3 days, 1 tab daily for 3 days, 1/2 tab daily for 2 days PREDNISONE 20 MG TAB 668439 PREDNISONE Inactive PREDNISONE 20 MG TAB 2 tabs daily for 3 days, 1 tab daily for 3 days, 1/2 tab daily for 2 days PREDNISONE 20 MG TAB 661699 PREDNISONE Inactive BACTRIM DS 800-160 MG TABS 1 po BID x 7 days BACTRIM DS 800-160 MG TABS 865119 SULFAMETHOXAZOLE-TRIMETHOPRIM Inactive ZITHROMAX 250 MG TAB 2 po today, then 1 po q days 2-5 ZITHROMAX 250 MG TAB 8995951 AZITHROMYCIN Inactive Advance Directives Directive Description Start Date DISCUSSED WITH PATIENT -- NO DECISION MADE Immunizations Vaccine Administration Date Value Standard Description Seasonal influenza vaccine, injectable, containing preservative, for > 3 years old (Afluria, FluLaval, Fluzone, Fluvirin, Fluarix, Agriflu(>=18 yo)) Fluzone (>3 yrs.) [[id number]] Influenza, seasonal, injectable influenza immunization (Flu Vax) has been administered 02/22/2012 influenza virus vaccine, unspecified formulation Seasonal influenza vaccine, injectable, containing preservative, for > 3 years old (Afluria, FluLaval, Fluzone, Fluvirin, Fluarix, Agriflu(>=18 yo)) Fluzone (>3 yrs.) [[id number]] Influenza, seasonal, injectable Vital Signs Date Name Value Unit Range Description blood pressure, diastolic - 8462-4 78 mm[Hg] [...] Range Description Lab Report: Basic Metabolic Panel, MICROALBUMIN - Chemistry sodium, serum 142 mmol/L 930-149 8702/10/08 potassium, serum 4.5 mmol/L 3.5-5.2 chloride, serum 105 mmol/L 98-107 carbon dioxide, venous blood 28.9 mmol/L 21.0-32.0 blood glucose 142 mg/dL 65-110 calcium, serum 9.1 mg/dL 8.5-10.1 urea nitrogen, blood 17 mg/dL 7-18 creatinine, serum 0.92 mg/dL 0.55-1.30 albumin/creatinine ratio, urine < 30 mg/g mg/g{creat} 0-29 Lab Report: Basic Metabolic Panel, MICROALBUMIN - Lab microalbumin, urine 10 0-19 Lab Report: HGBA1C - Chemistry hemoglobin A1C, blood, as % of total hemoglobin 7.1 % 4.3-6.0 hemoglobin A1C, blood, as % of total hemoglobin 7.7 % 4.3-6.0 Lab Report: Lipid Panel, Comp. Metabolic Panel - Chemistry alanine aminotransferase (SGPT), serum 32 U/L 12-78 aspartate aminotransferase (SGOT), serum 25 U/L 15-37 calcium, serum 9.1 mg/dL 8.5-10.1 bilirubin, serum, total 0.50 mg/dL 0.00-1.00 sodium, serum 140 mmol/L 041-020 9972/01/12 LDL cholesterol, serum 56 mg/dL 0-130 HDL cholesterol, serum 41 mg/dL 32-96 triglyceride, serum, fasting 135 mg/dL 30-200 cholesterol, serum 124 mg/dL 673-553 3444/01/12 urea nitrogen, blood 16 mg/dL 7-18 blood glucose 139 mg/dL 65-110 chloride, serum 104 mmol/L 98-107 potassium, serum 4.5 mmol/L 3.5-5.2 carbon dioxide, venous blood 27.7 mmol/L 21.0-32.0 Encounters Code Encounter Date Provider Facility CPT-70337 Level 4 Est. Patient 14:06:04 SERVICE CENTER SUPERVISOR Tu Landeros MD [facility] CPT-07560 Level 3 Est. Patient 14:05:18 SERVICE CENTER SUPERVISOR Tu Landeros MD [facility] CPT-45310 Level 3 Est. Patient 10:06:54 SERVICE CENTER SUPERVISOR Miranda Suresh APRN [facility] CPT-76728 Level 4 Est. Patient 13:50:18 SERVICE CENTER SUPERVISOR Tu Landeros MD [facility] CPT-21888 Level 3 Est. Patient 10:30:04 CDT Tu Landeros MD [facility] CPT-85685 Level 4 Est. Patient 11:03:38 CDT Tu Landeros MD [facility] CPT-48535 Level 3 Est. Patient 10:20:44 CDT Fab Morales DO [facility] CPT-29879 Level 4 Est. Patient 14:38:57 CDT Tu Landeros MD [facility] CPT-04024 Level 4 Est. Patient 14:27:39 SERVICE CENTER SUPERVISOR Tu Landeros MD [facility] CPT-75970 Level 4 Est. Patient 09:45:25 CDT Tu Landeros MD [facility] CPT-48189 Level 4 Est. Patient 09:05:20 SERVICE CENTER SUPERVISOR Tu Landeros MD [facility] CPT-56829 Level 4 Est. Patient 14:09:06 CDT Tu Landeros MD [facility] CPT-41257 Level 3 Est. Patient 13:36:54 CDT Tu Landeros MD [facility] CPT-53081 Level 3 Est. Patient 08:59:14 CDT Tu Landeros MD [facility] CPT-45532 Level 3 Est. Patient 13:48:35 CDT Fab Morales DO [facility] CPT-88567 Level 4 Est. Patient 10:05:48 CDT Tu Landeros MD [facility] CPT-60807 Level 3 Est. Patient 13:38:42 CDT Marek BANKS [facility] CPT-81179 Level 5 Est. Patient 08:08:39 CDT Jerrica FRANCIS [facility] CPT-63958 Level 4 Est. Patient 14:23:38 CDT Tu Landeros MD [facility] CPT-05298 Level 3 Est. Patient 11:44:04 CDT Tu Landeros MD [facility] CPT-17528 Level 3 Est. Patient 11:03:20 SERVICE CENTER SUPERVISOR Tu Landeros MD [facility] CPT-45303 Level 3 Est. Patient 11:03:14 SERVICE CENTER SUPERVISOR Tu Landeros MD [facility] CPT-95036 Level 3 Est. Patient 12:42:49 CDT Tu Landeros MD [facility] CPT-26460 Level 3 Est. Patient 11:52:06 CDT Tu Landeros MD [facility] CPT-20202 Level 3 Est. Patient 13:58:11 CDT Tu Landeros MD [facility] CPT-66366 Level 3 Est. Patient 17:50:07 CDT Fab Morales DO [facility] CPT-91531 Level 3 Est. Patient 12:06:29 CDT Elvira Cervantes MD PhD [facility] CPT-82444 Level 3 Est. Patient 15:50:32 CDT Tu Landeros MD [facility] CPT-21502 Level 4 Est. Patient 16:08:29 CDT Tu Landeros MD [facility] CPT-87752 Level 3 Est. Patient 16:04:19 CDT Tu Landeros MD [facility] CPT-94592 Level 3 Est. Patient 11:22:30 SERVICE CENTER SUPERVISOR Tu Landeros MD [facility] CPT-96873 Level 4 Est. Patient 16:24:02 SERVICE CENTER SUPERVISOR Tu Landeros MD [facility] CPT-43521 Level 3 Est. Patient 17:21:23 SERVICE CENTER SUPERVISOR Tu Landeros MD [facility] Procedures Code Procedure Name Date Entry Date Standard Description CPT-G0438 Initial Annual Wellness Exam 14:13:04 CDT CPT-87474 Breathing Tx 10:06:54 SERVICE CENTER SUPERVISOR CPT-27454 Postop F/U Visit 10:02:45 CDT CPT-LR Lesion Removal 09:02:56 CDT CPT-JTINJ Asp/Joint Injection 15:51:27 SERVICE CENTER SUPERVISOR CPT-OV Office Visit 15:52:02 SERVICE CENTER SUPERVISOR CPT-OV Office Visit 15:45:11 CDT CPT-000 Give Zostavax 14:09:06 CDT CPT-65168 Administration single or combination vaccine inc oral 15 :19:04 CDT CPT-31720 Zoster Vaccine (Zostavax) 15:19:04 CDT CPT-79575 Administration single or combination vaccine inc oral 20 :51:03 CDT CPT-18687 Influenza split virus > age 3 20:51:03 CDT CPT-92556 No Charge Offi Visit 14:52:03 CDT CPT-OV Office Visit 14:57:43 CDT CPT-OV Office Visit 15:22:32 CDT CPT-12728 Administration single or combination vaccine inc oral 11 :33:15 CDT CPT-07259 Influenza split virus > age 3 11:33:15 CDT
[2018-04-25] MEDS ORDERED: SIMV20TA3 PO (12:53)
[2018-04-25] MEDS ORDERED: FISH1CAP15 PO (12:53)
[2018-04-25] MEDS ORDERED: ROPI2TAB4 PO (12:54)
--- OUTSIDE RECORDS SUMMARY | 2018-04-25 12:54 | XMS REPORT | Clinical Summary ---
Author Author Admin, SACHI Organization [employer] Address Unknown Phone Unavailable Allergies, Adverse Reactions, [...] leg CONTUSION OF UNSPECIFIED SITE 924.9 Resolved uT Landeros MD Contusion of unspecified site PRESSURE [...] Active Tu Landeros MD Pain in limb POSTMENOPAUSAL BLEEDING ICD-627.1 Inactive Elvira Cervantes MD [...] UNSPECIFIED SITE ICD-924.9 Inactive Tu Landeros MD LOCALIZED SUPERFICIAL SWELLING [...] further specified ICD- 369.20 Tessa Landeros MD PRESSURE ULCER UNSPECIFIED SITE ICD-707.00 Tessa Landeros MD Medication List Medication Instructions Start Date Stop Date Generic Name NDC Status Provider Patient Instruction VENLAFAXINE HCL 75 MG ORAL TABS 1 po BID VENLAFAXINE HCL 06033596197 Active Tu Landeros MD Active GLIMEPIRIDE 1 MG ORAL TABS 1 po qd GLIMEPIRIDE 28233750166 Active Tu Landeros MD Active TRUE METRIX BLOOD GLUCOSE TEST INVITR STRP Test blood sugar BID Dx: E11.9 GLUCOSE BLOOD 81320447410 Delores Landeros MD Active TRUE METRIX AIR GLUCOSE METER W/DEVICE KIT Test blood glucose BID Dx: E11.9 BLOOD GLUCOSE MONITORING SUPPL 93508652828 Active Tu Landeros MD Active TRUETEST TEST INVITR STRP test blood sugar twice daily. DX 250.0 GLUCOSE BLOOD 43859050556 No Longer Active Mirna Stanley LPN Active TRUEDRAW LANCING DEVICE MISC test blood sugar twice daily dx: 250.00 LANCET DEVICES 21721781320 No Longer Active Mirna Stanley LPN Active ENALAPRIL MALEATE 20 MG TABS 2 po qd ENALAPRIL MALEATE 62335311850 Active Tu Landeros MD Active SUPER B COMPLEX/VITAMIN C TABS 1 qd B COMPLEX-C 65916414252 No Longer Active Tu Landeros MD Active ASPIRIN EC 81 MG ORAL TBEC 1 po qd ASPIRIN 58200708648 Active Tu Landeros MD Active GLUCOSAMINE 500 MG TABS 2 po qd GLUCOSAMINE Active Tu Landeros MD Active SIMVASTATIN 40 MG TABS 0.5 po qHS SIMVASTATIN 43559319090 Active Tu Landeros MD Active FISH OIL 1000 MG CAPS 1 po qd OMEGA-3 FATTY ACIDS 43933931381 Active Tu Landeros MD Active METFORMIN HCL 1000 MG TABS 1 po BID METFORMIN HCL 37044801973 Active Tu Landeros MD Active KLOR-CON 10 10 MEQ CR-TABS 2 po qd POTASSIUM CHLORIDE 54240138904 Active Tu Landeros MD Active FUROSEMIDE 40 MG TAB 1 po qd FUROSEMIDE 36648692273 Active Tu Landeros MD Active REQUIP 2 MG ORAL TABS 1 po qHS PRN Restless legs ROPINIROLE HCL 75564546687 Active Tu Landeros MD Active GABAPENTIN 100 MG CAPS 1 po BID GABAPENTIN 87799981724 Active Tu Landeros MD Active REQUIP 2 MG TABS Take one tablet at bedtime prn ROPINIROLE HCL 23213688512 No Longer Active Tu Landeros MD Active VENTOLIN HFA 108 (90 BASE) MCG/ACT AERS 1-2 puffs every 4 hours if needed for cough/congestion ALBUTEROL SULFATE 79434959148 No Longer Active Ambika Aden APRN Active ZITHROMAX 250 MG TAB 2 po today, then 1 po q days 2-5 AZITHROMYCIN 62226988489 No Longer Active Miranda Suresh APRN Active FLONASE 50 MCG/ACT SUSP 1 spray each nostril twice daily until bottle empty FLUTICASONE PROPIONATE 74980997325 No Longer Active Tu Landeros MD Active COLACE 100 MG CAP 1 po BID PRN Constipation DOCUSATE SODIUM 83760930942 Active Tu Landeros MD Active TRUERESULT BLOOD GLUCOSE W/DEVICE KIT test blood sugar twice daily dx 250.00 BLOOD GLUCOSE MONITORING SUPPL 80809153333 No Longer Active Tu Landeros MD Active TRUEDRAW LANCING DEVICE MISC Test twice a day dx 250.0 LANCET DEVICES 70712322965 No Longer Active Tu Landeros MD Active PREDNISONE 20 MG TAB 2 tablets once daily for 2 days, then 1 tablet once daily for 2 days PREDNISONE 76568986439 No Longer Active Tu Landeros MD Active DICLOFENAC SODIUM 50 MG TBEC 1 tablet by mouth three times a day as needed DICLOFENAC SODIUM 06061752348 No Longer Active Fab Morales DO Active EMBRACE BLOOD GLUCOSE TEST STRP test blood sugar twice daily DX 250.0 2014 GLUCOSE BLOOD 49386884165 No Longer Active Tu Landeros MD Active TRUETEST TEST STRP test blood sugar three times daily dx: 250.00 GLUCOSE BLOOD 72923417722 No Longer Active Suze Corey VOGEL Active TRUERESULT BLOOD GLUCOSE W/DEVICE KIT use to test blood sugar tid dx: 250.00 BLOOD GLUCOSE MONITORING SUPPL 97151039772 No Longer Active Suze Corey RMA Active ALIGN 4 MG CAPS 1 tid PROBIOTIC PRODUCT 11491665058 No Longer Active Shaun Sy MD Active CIPRO 500 MG TABS 1 bid x 14 days start 09-28-13 CIPROFLOXACIN HCL 05636287926 No Longer Active Shaun Sy MD Active TRAMADOL HCL 50 MG TABS 1-2 tablets every 6 hours as needed for pain TRAMADOL HCL 12384896467 Active Lesli Kellogg APRN Active HYDROCODONE-ACETAMINOPHEN 5-325 MG TABS 1 tab by mouth every 6 hours as needed for pain HYDROCODONE-ACETAMINOPHEN 08661256275 No Longer Active Tu Landeros MD Active OMEPRAZOLE 20 MG CPDR 1 po q a.m. OMEPRAZOLE 42688687654 Active Lesli Kellogg APRN Active GABAPENTIN 100 MG CAPS 1 po bid GABAPENTIN 55111378877 No Longer Active Tu Landeros MD Active B-12 100 MCG TABS Take one by mouth daily CYANOCOBALAMIN 72080054932 No Longer Active Tu Landeros MD Active BACTRIM DS 800-160 MG TABS 1 bid x 14 day start 09-28-13 SULFAMETHOXAZOLE-TRIMETHOPRIM 60427966949 No Longer Active Tu Landeros MD Active CARVEDILOL 12.5 MG TABS 1 po BID CARVEDILOL 49764282161 Active Tu Landeros MD Active TRILIPIX 135 MG CPDR 1 q hs CHOLINE FENOFIBRATE 60288569707 Active Tu Landeros MD Active FENOFIBRATE 145 MG TABS 1 po qd FENOFIBRATE 15982517366 No Longer Active JASPREET Perez Active OMEPRAZOLE 20 MG TBEC 1 PO 30 MIN BEFORE 1ST MEAL OMEPRAZOLE 95744764807 No Longer Active JASPREET Perez Active SIMVASTATIN 40 MG TABS Take one by mouth daily SIMVASTATIN 12186418353 No Longer Active JASPREET Perez Active VENLAFAXINE HCL 75 MG TABS 1 po BID VENLAFAXINE HCL 61090204713 No Longer Active [facility] Norma, RMA Active CIPRO 500 MG TAB 1 tablet by mouth twice daily CIPROFLOXACIN HCL 63300484478 No Longer Active Tu Landeros MD Active VENLAFAXINE HCL 37.5 MG TABS 1 po BID VENLAFAXINE HCL 43321976850 No Longer Active Suze Nicole RMA Active LAMISIL 250 MG TAB 1 po qd TERBINAFINE HCL 90458923120 No Longer Active Tu Landeros MD Active LORTAB 5 5-500 MG TABS 1/2 to 1 tablet by mouth every 4 hours as needed for pain HYDROCODONE-ACETAMINOPHEN 51034945035 No Longer Active Tu Landeros MD Active HYDROCODONE-ACETAMINOPHEN 5-500 MG TABS take one po Q 4-6 hours prn HYDROCODONE-ACETAMINOPHEN 43525202407 No Longer Active Tu Landeros MD Active BACTRIM DS 800-160 MG TABS 1 po BID x 7 days SULFAMETHOXAZOLE-TRIMETHOPRIM 17834992264 No Longer Active Tu Landeros MD Active VENLAFAXINE HCL 75 MG TABS 1 po BID VENLAFAXINE HCL 63551659440 No Longer Active Elvira Cervantes MD PhD Active TRAMADOL HCL 50 MG TABS 1 tablets every 6 hours as needed for pain TRAMADOL HCL 39672848836 No Longer Active Tu Landeros MD Active ACCU-CHEK FASTCLIX LANCETS MISC Use to check bloodsugar three times daily as needed LANCETS 86742261415 No Longer Active Tu Landeros MD Active ACCU-CHEK KEYONA PLUS STRP Use for testing bloodsugars three times daily as needed GLUCOSE BLOOD 82596655996 No Longer Active Tu Landeros MD Active ACCU-CHEK KEYONA PLUS W/DEVICE KIT Use for testing bloodsugars three times daily as needed BLOOD GLUCOSE MONITORING SUPPL 55316920626 No Longer Active Tu Landeros MD Active SPIRONOLACTONE 25 MG TAB 0.5 tablet by mouth daily SPIRONOLACTONE 75063492164 No Longer Active Tu Landeros MD Active ALPRAZOLAM 0.5 MG TABS 1 tab every 6hrs as needed ALPRAZOLAM 25977715912 No Longer Active Tu Landeros MD Active AUGMENTIN 875-125 MG TAB 1 tab by mouth twice daily with food AMOXICILLIN-POT CLAVULANATE 94332282802 No Longer Active Tu Landeros MD Active PREDNISONE 20 MG TAB 2 tabs daily for 3 days, 1 tab daily for 3 days, 1/2 tab daily for 2 days PREDNISONE 25500808243 No Longer Active Tu Landeros MD Active XANAX 0.5 MG TABS 1 tablet every 6 hrs prn ALPRAZOLAM 01450010956 No Longer Active Tu Landeros MD Active PREDNISONE 20 MG TAB 2 tabs daily for 3 days, 1 tab daily for 3 days, 1/2 tab daily for 2 days PREDNISONE 16625780825 No Longer Active Tu Landeros MD Active TRIAMCINOLONE ACETONIDE 0.1 % OINT Apply to affected areas TID for up to 2 weeks TRIAMCINOLONE ACETONIDE 43131655406 No Longer Active Tu Landeros MD Active LORTAB 5 5-500 MG TABS 1/2 to 1 tablet by mouth every 4 hours as needed for pain HYDROCODONE-ACETAMINOPHEN 90413533956 No Longer Active Tu Landeros MD Active MULTIVITAMINS TABS Take one by mouth daily MULTIPLE VITAMIN 85328101329 No Longer Active Tu Landeros MD Active MELATONIN 5 MG TABS Take one by mouth daily MELATONIN 18590999983 No Longer Active Tu Landeros MD Active SOMA 350 MG TAB 1 po q 6 hours prn spasm CARISOPRODOL 63296482518 No Longer Active Tu Landeros MD Active MECLIZINE HCL 25 MG CHEW TAB 1 four times a day as needed for dizziness 08/05 MECLIZINE HCL 23267800728 No Longer Active Fab Morales DO Active ANGEL NIKKOEZAdrianna 2 TEST DISK test tid prn GLUCOSE BLOOD 53313821780 No Longer Active Negra Tyler MICHAEL Active REGLAN 10 MG TAB 1 po TID PRN Nausea METOCLOPRAMIDE HCL 41435527112 No Longer Active Tu Landeros MD Active METFORMIN HCL 500 MG TABS 1 PO BID METFORMIN HCL 02253250412 No Longer Active Tu Landeros MD Active AMBIEN 10 MG TAB 1 tab by mouth at bedtime as needed for sleep ZOLPIDEM TARTRATE 37922035384 No Longer Active Tu Landeros MD Active FLUOXETINE HCL 40 MG CAPS 1 po q day FLUOXETINE HCL 28327622590 No Longer Active Mayra [place] Active TRILIPIX 135 MG CPDR 1 po qd CHOLINE FENOFIBRATE 20466851986 No Longer Active Tu Landeros MD Active AMBIEN 10 MG TAB 1 tab by mouth at bedtime as needed for sleep AMBIEN 10 MG TAB 981076 ZOLPIDEM TARTRATE Inactive METFORMIN HCL 500 MG TABS 1 PO BID METFORMIN HCL 500 MG TABS 006701 METFORMIN HCL Inactive REGLAN 10 MG TAB 1 po TID PRN Nausea REGLAN 10 MG TAB 344661 METOCLOPRAMIDE HCL Inactive MECLIZINE HCL 25 MG CHEW TAB 1 four times a day as needed for dizziness 08/05 MECLIZINE HCL 25 MG CHEW TAB 925624 MECLIZINE HCL Inactive SOMA 350 MG TAB 1 po q 6 hours prn spasm SOMA 350 MG TAB 543213 CARISOPRODOL Inactive MELATONIN 5 MG TABS Take one by mouth daily MELATONIN 5 MG TABS 144318 MELATONIN Inactive MULTIVITAMINS TABS Take one by mouth daily MULTIVITAMINS TABS MULTIPLE VITAMIN Inactive LORTAB 5 5-500 MG TABS 1/2 to 1 tablet by mouth every 4 hours as needed for pain LORTAB 5 5-500 MG TABS HYDROCODONE- ACETAMINOPHEN Inactive XANAX 0.5 MG TABS 1 tablet every 6 hrs prn XANAX 0.5 MG TABS 803831 ALPRAZOLAM Inactive AUGMENTIN 875-125 MG TAB 1 tab by mouth twice daily with food AUGMENTIN 875-125 MG TAB 730958 AMOXICILLIN-POT CLAVULANATE Inactive ALPRAZOLAM 0.5 MG TABS 1 tab every 6hrs as needed ALPRAZOLAM 0.5 MG TABS 550569 ALPRAZOLAM Inactive SPIRONOLACTONE 25 MG TAB 0.5 tablet by mouth daily SPIRONOLACTONE 25 MG TAB 983437 SPIRONOLACTONE Inactive ACCU-CHEK KEYONA PLUS W/DEVICE KIT Use for testing bloodsugars three times daily as needed ACCU-CHEK KEYONA PLUS W/DEVICE KIT BLOOD GLUCOSE MONITORING SUPPL Inactive ACCU-CHEK KEYONA PLUS STRP Use for testing bloodsugars three times daily as needed ACCU-CHEK KEYONA PLUS STRP GLUCOSE BLOOD Inactive ACCU-CHEK FASTCLIX LANCETS MISC Use to check bloodsugar three times daily as needed ACCU-CHEK FASTCLIX LANCETS MISC 99029373414 LANCETS Inactive TRAMADOL HCL 50 MG TABS 1 tablets every 6 hours as needed for pain TRAMADOL HCL 50 MG TABS 465551 TRAMADOL HCL Inactive VENLAFAXINE HCL 75 MG TABS 1 po BID VENLAFAXINE HCL 75 MG TABS 023548 VENLAFAXINE HCL Inactive HYDROCODONE-ACETAMINOPHEN 5-500 MG TABS take one po Q 4-6 hours prn HYDROCODONE-ACETAMINOPHEN 5-500 MG TABS HYDROCODONE- ACETAMINOPHEN Inactive LORTAB 5 5-500 MG TABS 1/2 to 1 tablet by mouth every 4 hours as needed for pain LORTAB 5 5-500 MG TABS HYDROCODONE- ACETAMINOPHEN Inactive LAMISIL 250 MG TAB 1 po qd LAMISIL 250 MG TAB 683320 TERBINAFINE HCL Inactive VENLAFAXINE HCL 37.5 MG TABS 1 po BID VENLAFAXINE HCL 37.5 MG TABS 220255 VENLAFAXINE HCL Inactive CIPRO 500 MG TAB 1 tablet by mouth twice daily CIPRO 500 MG TAB 713512 CIPROFLOXACIN HCL Inactive VENLAFAXINE HCL 75 MG TABS 1 po BID VENLAFAXINE HCL 75 MG TABS 080915 VENLAFAXINE HCL Inactive SIMVASTATIN 40 MG TABS Take one by mouth daily SIMVASTATIN 40 MG TABS 984574 SIMVASTATIN Inactive OMEPRAZOLE 20 MG TBEC 1 PO 30 MIN BEFORE 1ST MEAL OMEPRAZOLE 20 MG TBEC 516245 OMEPRAZOLE Inactive FENOFIBRATE 145 MG TABS 1 po qd FENOFIBRATE 145 MG TABS 285333 FENOFIBRATE Inactive BACTRIM DS 800-160 MG TABS 1 bid x 14 day start 09-28-13 BACTRIM DS 800-160 MG TABS 594395 SULFAMETHOXAZOLE-TRIMETHOPRIM Inactive B-12 100 MCG TABS Take one by mouth daily B-12 100 MCG TABS CYANOCOBALAMIN Inactive GABAPENTIN 100 MG CAPS 1 po bid GABAPENTIN 100 MG CAPS 776662 GABAPENTIN Inactive HYDROCODONE-ACETAMINOPHEN 5-325 MG TABS 1 tab by mouth every 6 hours as needed for pain HYDROCODONE-ACETAMINOPHEN 5-325 MG TABS 758561 HYDROCODONE-ACETAMINOPHEN Inactive CIPRO 500 MG TABS 1 bid x 14 days start 09-28-13 CIPRO 500 MG TABS 795802 CIPROFLOXACIN HCL Inactive ALIGN 4 MG CAPS [...] as needed DICLOFENAC SODIUM 50 MG TBEC 768480 DICLOFENAC SODIUM Inactive PREDNISONE 20 MG TAB 2 tablets once daily for 2 days, then 1 tablet once daily for 2 days PREDNISONE 20 MG TAB 912065 PREDNISONE Inactive TRUEDRAW LANCING DEVICE MISC Test twice a day dx 250.0 TRUEDRAW LANCING DEVICE MISC LANCET DEVICES Inactive TRUERESULT BLOOD GLUCOSE W/DEVICE KIT test blood sugar twice daily dx 250.00 TRUERESULT BLOOD GLUCOSE W/DEVICE KIT BLOOD GLUCOSE MONITORING SUPPL Inactive FLONASE 50 MCG/ACT SUSP 1 spray each nostril twice daily until bottle empty FLONASE 50 MCG/ACT SUSP 0555198 FLUTICASONE PROPIONATE Inactive VENTOLIN HFA 108 (90 BASE) MCG/ACT AERS 1-2 puffs every 4 hours if needed for cough/congestion VENTOLIN HFA 108 (90 BASE) MCG/ACT AERS ALBUTEROL SULFATE Inactive REQUIP 2 MG TABS Take one tablet at bedtime prn REQUIP 2 MG TABS 374283 ROPINIROLE HCL Inactive SUPER B COMPLEX/VITAMIN C TABS 1 qd SUPER B COMPLEX/ VITAMIN C TABS 16738644715 B COMPLEX-C Inactive TRUEDRAW LANCING DEVICE MISC test blood sugar twice daily dx: 250.00 TRUEDRAW LANCING DEVICE MISC LANCET DEVICES Inactive TRUETEST TEST INVITR STRP test blood sugar twice daily. DX 250.0 TRUETEST TEST INVITR STRP GLUCOSE BLOOD Inactive TRIAMCINOLONE ACETONIDE 0.1 % OINT Apply to affected areas TID for up to 2 weeks TRIAMCINOLONE ACETONIDE 0.1 % OINT 1648858 TRIAMCINOLONE ACETONIDE Inactive PREDNISONE 20 MG TAB 2 tabs daily for 3 days, 1 tab daily for 3 days, 1/2 tab daily for 2 days PREDNISONE 20 MG TAB 669256 PREDNISONE Inactive PREDNISONE 20 MG TAB 2 tabs daily for 3 days, 1 tab daily for 3 days, 1/2 tab daily for 2 days PREDNISONE 20 MG TAB 733552 PREDNISONE Inactive BACTRIM DS 800-160 MG TABS 1 po BID x 7 days BACTRIM DS 800-160 MG TABS 591850 SULFAMETHOXAZOLE-TRIMETHOPRIM Inactive ZITHROMAX 250 MG TAB 2 po today, then 1 po q days 2-5 ZITHROMAX 250 MG TAB 8407085 AZITHROMYCIN Inactive Advance Directives Directive Description Start Date DISCUSSED WITH PATIENT -- NO DECISION MADE Immunizations Vaccine Administration Date Value Standard Description Seasonal influenza vaccine, injectable, containing preservative, for > 3 years old (Afluria, FluLaval, Fluzone, Fluvirin, Fluarix, Agriflu(>=18 yo)) Fluzone (>3 yrs.) [[id number]] Influenza, seasonal, injectable influenza immunization (Flu Vax) has been administered 02/22/2012 influenza virus vaccine, unspecified formulation Seasonal influenza vaccine, injectable, containing preservative, for > 3 years old (Afluria, FluLaval, Fluzone, Fluvirin, Fluarix, Agriflu(>=18 yo)) Fluzone (>3 yrs.) [[id number]] Influenza, seasonal, injectable Vital Signs Date Name [...] Magnesium - Chemistry sodium, serum 143 mmol/L 821-160 1843/01/10 carbon dioxide, venous blood 28.0 mmol/L 21.0-32.0 potassium, serum 4.5 mmol/L 3.5-5.2 chloride, serum 104 mmol/L 98-107 blood glucose 158 mg/dL 65-110 urea nitrogen, blood 23 mg/dL 7-18 creatinine, serum 1.06 mg/dL 0.55-1.30 alanine aminotransferase (SGPT), serum 42 U/L 12-78 aspartate aminotransferase (SGOT), serum 32 U/L 15-37 calcium, serum 9.3 mg/dL 8.5-10.1 bilirubin, serum, total 0.20 mg/dL 0.00-1.00 cholesterol, serum 177 mg/dL 381-171 8561/01/10 triglyceride, serum, fasting 320 mg/dL 30-200 HDL cholesterol, serum 46 mg/dL 32-96 LDL cholesterol, serum 67 mg/dL 0-130 Lab Report: COMPREHENSIVE METABOLIC PANEL, LIPID PANEL, HEMOGLOBIN A1c - Chemistry cholesterol, serum 135 mg/dL 168-689 5543/05/17 HDL cholesterol, serum 41 mg/dL > OR=46 triglyceride, serum, fasting 206 mg/dL <150 LDL cholesterol, serum 53 MG/DL (CALC) mg/dL <130 cholesterol/HDL ratio, serum 3.3 (calc) < OR=5.0 Lab Report: HGBA1C - Chemistry hemoglobin A1C, blood, as % of total hemoglobin 7.4 % 4.3-6.0 sodium, serum 140 mmol/L 760-559 8204/09/07 potassium, serum 4.3 mmol/L 3.5-5.2 chloride, serum [...] <30 Encounters Code Encounter Date Provider Facility CPT-37741 Level 4 Est. Patient 14:29:21 CDT Tu Landeros MD [facility] CPT-06066 Level 4 Est. Patient 09:08:17 ELECTRIC WELDER Tu Landeros MD [facility] CPT-45952 Level 4 Est. Patient 14:40:19 CDT Tu Landeros MD [facility] CPT-10758 Level 4 Est. Patient 14:06:04 ELECTRIC WELDER Tu Landeros MD [facility] CPT-50948 Level 3 Est. Patient 14:05:18 ELECTRIC WELDER Tu Landeros MD [facility] CPT-71030 Level 3 Est. Patient 10:06:54 ELECTRIC WELDER [place]inston Suresh APRN [facility] CPT-87583 Level 4 Est. Patient 13:50:18 ELECTRIC WELDER Tu Landeros MD [facility] CPT-29101 Level 3 Est. Patient 10:30:04 CDT Tu Landeros MD [facility] CPT-42758 Level 4 Est. Patient 11:03:38 CDT Tu Landeros MD [facility] CPT-48063 Level 3 Est. Patient 10:20:44 CDT Fab Morales DO [facility] CPT-27786 Level 4 Est. Patient 14:38:57 CDT Tu Landeros MD [facility] CPT-75198 Level 4 Est. Patient 14:27:39 ELECTRIC WELDER Tu Landeros MD [facility] CPT-38452 Level 4 Est. Patient 09:45:25 CDT Tu Landeros MD [facility] CPT-51898 Level 4 Est. Patient 09:05:20 ELECTRIC WELDER Tu Landeros MD [facility] CPT-62383 Level 4 Est. Patient 14:09:06 CDT Tu Landeros MD [facility] CPT-81544 Level 3 Est. Patient 13:36:54 CDT Tu Landeros MD [facility] CPT-75579 Level 3 Est. Patient 08:59:14 CDT Tu Landeros MD [facility] CPT-31302 Level 3 Est. Patient 13:48:35 CDT Fab Morales DO [facility] CPT-51727 Level 4 Est. Patient 10:05:48 CDT Tu Landeros MD [facility] CPT-85944 Level 3 Est. Patient 13:38:42 CDT Marek BANKS [facility] CPT-31119 Level 5 Est. Patient 08:08:39 CDT Piyushrichajanelle Dawsontay FRANCIS [facility] CPT-58159 Level 4 Est. Patient 14:23:38 CDT Tu Landeros MD [facility] CPT-67793 Level 3 Est. Patient 11:44:04 CDT Tu Landeros MD [facility] CPT-12787 Level 3 Est. Patient 11:03:20 ELECTRIC WELDER Tu Landeros MD [facility] CPT-36107 Level 3 Est. Patient 11:03:14 ELECTRIC WELDER Tu Landeros MD [facility] CPT-72933 Level 3 Est. Patient 12:42:49 CDT Tu Landeros MD [facility] CPT-89530 Level 3 Est. Patient 11:52:06 CDT Tu Landeros MD [facility] CPT-79630 Level 3 Est. Patient 13:58:11 CDT Tu Landeros MD [facility] CPT-27843 Level 3 Est. Patient 17:50:07 CDT Fab Morales DO [facility] CPT-61060 Level 3 Est. Patient 12:06:29 CDT Elvira Cervantes MD PhD [facility] CPT-45977 Level 3 Est. Patient 15:50:32 CDT Tu Landeros MD [facility] CPT-01510 Level 4 Est. Patient 16:08:29 CDT Tu Landeros MD [facility] CPT-78843 Level 3 Est. Patient 16:04:19 CDT Tu Landeros MD [facility] CPT-24869 Level 3 Est. Patient 11:22:30 ELECTRIC WELDER Tu Landeros MD [facility] CPT-11600 Level 4 Est. Patient 16:24:02 ELECTRIC WELDER Tu Landeros MD [facility] CPT-61612 Level 3 Est. 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 WELDER Tu Landeros MD [facility] Procedures Code Procedure Name Date Entry Date Standard Description CPT-G0009 Administration of Pneumococcal Vaccine 15:08:26 CDT CPT-10853 Prevnar 13 Intramuscular Suspension 15:08:26 CDT 10/08 CPT-G0439 [facility] Annual Wellness Exam 14:29:22 CDT CPT-21978 Venipuncture Draw Fee 13:15:35 CDT CPT-64121 Magnesium - LAB USE ONLY 11:14:20 ELECTRIC WELDER CPT-73857 Lipid - LAB USE ONLY 11:14:20 ELECTRIC WELDER CPT-79067 HGBA1C - LAB USE ONLY 11:14:20 ELECTRIC WELDER CPT-05656 CMP - LAB USE ONLY 11:14:19 ELECTRIC WELDER CPT-60465 CBC - LAB USE ONLY 11:14:19 ELECTRIC WELDER CPT-31541 Venipuncture Draw Fee 11:14:18 ELECTRIC WELDER CPT-27172 First Vx - Ix admin for Medicare patients 16:46:52 CDT CPT-43042 Fluzone Preservative Free Intramuscular Suspension 16:46 :51 CDT CPT-23987 CBC - LAB USE ONLY 17:14:46 CDT CPT-07141 HGBA1C - LAB USE ONLY 17:14:46 CDT CPT-28961 Venipuncture Draw Fee 17:14:46 CDT CPT-G0438 Initial Annual Wellness Exam 14:13:04 CDT CPT-16070 Breathing Tx 10:06:54 ELECTRIC WELDER CPT-00192 Postop F/U Visit 10:02:45 CDT CPT-LR Lesion Removal 09:02:56 CDT CPT-JTINJ Asp/Joint Injection 15:51:27 ELECTRIC WELDER CPT-OV Office Visit 15:52:02 ELECTRIC WELDER CPT-OV Office Visit 15:45:11 CDT CPT-000 Give Zostavax 14:09:06 CDT CPT-54578 Administration single or combination vaccine inc oral 15 :19:04 CDT CPT-60529 Zoster Vaccine (Zostavax) 15:19:04 CDT CPT-15781 Administration single or combination vaccine inc oral 20 :51:03 CDT CPT-44585 Influenza split virus > age 3 20:51:03 CDT CPT-10213 No Charge Offi Visit 14:52:03 CDT CPT-OV Office Visit 14:57:43 CDT CPT-OV Office Visit 15:22:32 CDT CPT-37047 Administration single or combination vaccine inc oral 11 :33:15 CDT CPT-15121 Influenza split virus > age 3 11:33:15 CDT
[2018-04-25] MEDS ORDERED: GLUC-173 PO (12:55)
--- OUTSIDE RECORDS SUMMARY | 2018-04-25 12:55 | XMS REPORT | Clinical Summary ---
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 Lesli Kellogg RFID ANALYST Acute upper respiratory infections of unspecified site [...] Inactive Tu Landeros MD SCIATICA ICD-724.3 Tessa Lanedros MD 2012 SHOULDER PAIN, LEFT ICD-719.41 Tessa Landeros MD PARESTHESIA ICD-782.0 Tessa Landeros MD [...] Generic Name NDC Status Provider Patient Instruction NASONEX 50 MCG/ACT NASAL SUSPENSION 2 actuations in each nostril q day 07/15 MOMETASONE FUROATE 74540547799 Active Lesli Kellogg APRN Active GUAIFENESIN ER 600 MG ORAL TABLET EXTENDED RELEASE 12 HOUR 1 twice a day as needed for congestion GUAIFENESIN 60561051857 Active Lesli Kellogg APRN Active MAGNESIUM OXIDE 400 MG ORAL TABLET 1 po BID MAGNESIUM OXIDE 80272670305 Active Tu Landeros MD Active SIMVASTATIN 20 MG ORAL TABLET 0.5 po qHS SIMVASTATIN 75149610072 Active Tu Landeros MD Active DICLOFENAC SODIUM 75 MG ORAL TABLET DELAYED RELEASE 1 po BID PRN Pain DICLOFENAC SODIUM 01459434841 No Longer Active Tu Landeros MD Active GABAPENTIN 100 MG ORAL CAPSULE 1 po TID GABAPENTIN 79750104161 Active Tu Landeros MD Active DICLOFENAC SODIUM 50 MG ORAL TABLET DELAYED RELEASE 1 po BID PRN Pain DICLOFENAC SODIUM 09070105345 No Longer Active Tu Landeros MD Active CYCLOBENZAPRINE HCL 10 MG ORAL TABLET 1 po TID PRN Muscle Spasm CYCLOBENZAPRINE HCL 60425616053 No Longer Active Tu Landeros MD Active INVOKANA 100 MG ORAL TABLET 1 po qd CANAGLIFLOZIN 70713629881 Active Tu Landeros MD Active GLIPIZIDE 5 MG ORAL TABLET 1 po qd GLIPIZIDE 23890177768 No Longer Active Tu Landeros MD Active VENLAFAXINE HCL 75 MG ORAL TABLET 1 po BID VENLAFAXINE HCL 14908440305 Active Tu Landeros MD Active GLIMEPIRIDE 1 MG ORAL TABLET 1 po qd GLIMEPIRIDE 87706950982 No Longer Active Tu Landeros MD Active TRUE METRIX BLOOD GLUCOSE TEST IN VITRO STRIP Test blood sugar BID Dx: E11.9 GLUCOSE BLOOD 79915084204 Active Tu Landeros MD Active TRUE METRIX AIR GLUCOSE METER w/Device KIT Test blood glucose BID Dx: E11.9 BLOOD GLUCOSE MONITORING SUPPL 24893081677 Active Tu Landeros MD Active TRUETEST TEST IN VITRO STRIP test blood sugar twice daily. DX 250.0 GLUCOSE BLOOD 36262106253 No Longer Active Mirna Stanley LPN Active TRUEDRAW LANCING DEVICE test blood sugar twice daily dx: 250.00 LANCET DEVICES 67537821944 No Longer Active Mirna Stanley LPN Active ENALAPRIL MALEATE 20 MG ORAL TABLET 2 po qd ENALAPRIL MALEATE 02902318284 Active Tu Landeros MD Active SUPER B COMPLEX/VITAMIN C ORAL TABLET 1 qd B COMPLEX- C 08511735016 No Longer Active Tu Landeros MD Active ASPIRIN EC 81 MG ORAL TABLET DELAYED RELEASE 1 po qd ASPIRIN 23414578565 Active Tu Landeros MD Active GLUCOSAMINE 500 MG TABS 2 po qd GLUCOSAMINE Active Tu Landeros MD Active FISH OIL 1000 MG ORAL CAPSULE 1 po qd OMEGA-3 FATTY ACIDS 63082710580 Active Tu Landeros MD Active METFORMIN HCL 1000 MG ORAL TABLET 1 po BID METFORMIN HCL 10708846590 Active Tu Landeros MD Active KLOR-CON 10 10 MEQ ORAL TABLET EXTENDED RELEASE 2 po qd POTASSIUM CHLORIDE 50128520847 Active Tu Landeros MD Active FUROSEMIDE 40 MG ORAL TABLET 1 po qd FUROSEMIDE 25767184579 Active Tu Landeros MD Active REQUIP 2 MG ORAL TABLET 1 po qHS PRN Restless legs ROPINIROLE HCL 51261989748 Active Tu Landeros MD Active REQUIP 2 MG ORAL TABLET Take one tablet at bedtime prn ROPINIROLE HCL 45422743021 No Longer Active Tu Landeros MD Active VENTOLIN HFA 108 (90 Base) MCG/ACT INHALATION AEROSOL SOLUTION 1-2 puffs every 4 hours if needed for cough/congestion ALBUTEROL SULFATE 55589677217 No Longer Active Ambika Aden APRN Active ZITHROMAX 250 MG ORAL TABLET 2 po today, then 1 po q days 2-5 AZITHROMYCIN 93298084447 No Longer Active Miranda Farah APRN Active FLONASE 50 MCG/ACT NASAL SUSPENSION 1 spray each nostril twice daily until bottle empty FLUTICASONE PROPIONATE 15768822060 No Longer Active Tu Landeros MD Active COLACE 100 MG ORAL CAPSULE 1 po BID PRN Constipation DOCUSATE SODIUM 01403047600 Active Tu Landeros MD Active TRUERESULT BLOOD GLUCOSE w/Device KIT test blood sugar twice daily dx 250.00 BLOOD GLUCOSE MONITORING SUPPL 62241582301 No Longer Active Tu Landeros MD Active TRUEDRAW LANCING DEVICE Test twice a day dx 250.0 LANCET DEVICES 92953720430 No Longer Active Tu Landeros MD Active PREDNISONE 20 MG ORAL TABLET 2 tablets once daily for 2 days, then 1 tablet once daily for 2 days PREDNISONE 43999565130 No Longer Active Tu Landeros MD Active DICLOFENAC SODIUM 50 MG ORAL TABLET DELAYED RELEASE 1 tablet by mouth three times a day as needed DICLOFENAC SODIUM 76570289545 No Longer Active Fab Morales DO Active EMBRACE BLOOD GLUCOSE TEST IN VITRO STRIP test blood sugar twice daily DX 250.0 GLUCOSE BLOOD 02028542171 No Longer Active Tu Landeros MD Active TRUETEST TEST IN VITRO STRIP test blood sugar three times daily dx: 250.00 GLUCOSE BLOOD 13025092320 No Longer Active Suze Nicole NURYSA Active TRUERESULT BLOOD GLUCOSE w/Device KIT use to test blood sugar tid dx: 250.00 BLOOD GLUCOSE MONITORING SUPPL 95808012803 No Longer Active Suze Nicole NURYSA Active ALIGN 4 MG ORAL CAPSULE 1 tid PROBIOTIC PRODUCT 84916451489 No Longer Active Shaun Sy MD Active CIPRO 500 MG ORAL TABLET 1 bid x 14 days start 09-28-13 CIPROFLOXACIN HCL 16456615218 No Longer Active Shaun Sy MD Active TRAMADOL HCL 50 MG ORAL TABLET 1-2 tablets every 6 hours as needed for pain TRAMADOL HCL 84202438132 Active Tu Landeros MD Active HYDROCODONE-ACETAMINOPHEN 5-325 MG ORAL TABLET 1 tab by mouth every 6 hours as needed for pain HYDROCODONE-ACETAMINOPHEN 88741939462 No Longer Active Tu Landeros MD Active OMEPRAZOLE 20 MG ORAL CAPSULE DELAYED RELEASE 1 po q a.m. OMEPRAZOLE 43656142719 Active Fab Morales DO Active GABAPENTIN 100 MG ORAL CAPSULE 1 po bid GABAPENTIN 55667106521 No Longer Active Tu Landeros MD Active B-12 100 MCG ORAL TABLET Take one by mouth daily CYANOCOBALAMIN 73341816516 No Longer Active Tu Landeros MD Active BACTRIM DS 800-160 MG ORAL TABLET 1 bid x 14 day start 09-28-13 SULFAMETHOXAZOLE-TRIMETHOPRIM 11883901998 No Longer Active Tu Landeros MD Active CARVEDILOL 12.5 MG ORAL TABLET 1 po BID CARVEDILOL 28884431949 Active Tu Landeros MD Active TRILIPIX 135 MG ORAL CAPSULE DELAYED RELEASE 1 q hs CHOLINE FENOFIBRATE 61127930208 Active Tu Landeros MD Active FENOFIBRATE 145 MG ORAL TABLET 1 po qd FENOFIBRATE 76152107795 No Longer Active JASPREET Perez Active OMEPRAZOLE 20 MG ORAL TABLET DELAYED RELEASE 1 PO 30 MIN BEFORE 1ST MEAL 2010 OMEPRAZOLE 18646785023 No Longer Active JASPREET Perez Active SIMVASTATIN 40 MG ORAL TABLET Take one by mouth daily SIMVASTATIN 08666827135 No Longer Active JASPREET Perez Active VENLAFAXINE HCL 75 MG ORAL TABLET 1 po BID VENLAFAXINE HCL 14264426194 No Longer Active JASPREET Perez Active CIPRO 500 MG ORAL TABLET 1 tablet by mouth twice daily CIPROFLOXACIN HCL 66023507214 No Longer Active Tu Landeros MD Active VENLAFAXINE HCL 37.5 MG ORAL TABLET 1 po BID VENLAFAXINE HCL 01084590261 No Longer Active Suzebianca Nicole RMA Active LAMISIL 250 MG ORAL TABLET 1 po qd TERBINAFINE HCL 27275654558 No Longer Active Tu Landeros MD Active LORTAB 5-500 MG ORAL TABLET 1/2 to 1 tablet by mouth every 4 hours as needed for pain HYDROCODONE-ACETAMINOPHEN 69847280483 No Longer Active Tu Landeros MD Active HYDROCODONE-ACETAMINOPHEN 5-500 MG ORAL TABLET take one po Q 4-6 hours prn HYDROCODONE-ACETAMINOPHEN 77782888683 No Longer Active Tu Landeros MD Active BACTRIM DS 800-160 MG ORAL TABLET 1 po BID x 7 days SULFAMETHOXAZOLE-TRIMETHOPRIM 06173359362 No Longer Active Tu Landeros MD Active VENLAFAXINE HCL 75 MG ORAL TABLET 1 po BID VENLAFAXINE HCL 06866172403 No Longer Active Elvira Cervantes MD PhD Active TRAMADOL HCL 50 MG ORAL TABLET 1 tablets every 6 hours as needed for pain TRAMADOL HCL 11227686452 No Longer Active Tu Landeros MD Active ACCU-CHEK FASTCLIX LANCETS Use to check bloodsugar three times daily as needed LANCETS 48036811574 No Longer Active Tu Landeros MD Active ACCU-CHEDawson KEYONA PLUS IN VITRO STRIP Use for testing bloodsugars three times daily as needed GLUCOSE BLOOD 93050477670 No Longer Active Tu Landeros MD Active ACCU-CHEK KEYONA PLUS w/Device KIT Use for testing bloodsugars three times daily as needed BLOOD GLUCOSE MONITORING SUPPL 89778869280 No Longer Active Tu Landeros MD Active SPIRONOLACTONE 25 MG ORAL TABLET 0.5 tablet by mouth daily 09/09 SPIRONOLACTONE 24711338073 No Longer Active Tu Landeros MD Active ALPRAZOLAM 0.5 MG ORAL TABLET 1 tab every 6hrs as needed ALPRAZOLAM 16067900560 No Longer Active Tu Landeros MD Active AUGMENTIN 875-125 MG ORAL TABLET 1 tab by mouth twice daily with food AMOXICILLIN-POT CLAVULANATE 99344844035 No Longer Active Tu Landeros MD Active PREDNISONE 20 MG ORAL TABLET 2 tabs daily for 3 days, 1 tab daily for 3 days, 1/2 tab daily for 2 days PREDNISONE 95238687973 No Longer Active Tu Landeros MD Active XANAX 0.5 MG ORAL TABLET 1 tablet every 6 hrs prn ALPRAZOLAM 11135973979 No Longer Active Tu Landeros MD Active PREDNISONE 20 MG ORAL TABLET 2 tabs daily for 3 days, 1 tab daily for 3 days, 1/2 tab daily for 2 days PREDNISONE 89167945360 No Longer Active Tu Landeros MD Active TRIAMCINOLONE ACETONIDE 0.1 % EXTERNAL OINTMENT Apply to affected areas TID for up to 2 weeks TRIAMCINOLONE ACETONIDE 53360806859 No Longer Active Tu Landeros MD Active LORTAB 5-500 MG ORAL TABLET 1/2 to 1 tablet by mouth every 4 hours as needed for pain HYDROCODONE-ACETAMINOPHEN 14166495751 No Longer Active Tu Landeros MD Active MULTIVITAMINS TABS Take one by mouth daily MULTIPLE VITAMIN 39238944380 No Longer Active Tu Landeros MD Active MELATONIN 5 MG ORAL TABLET Take one by mouth daily MELATONIN 72540911875 No Longer Active Tu Landeros MD Active SOMA 350 MG ORAL TABLET 1 po q 6 hours prn spasm CARISOPRODOL 53112460417 No Longer Active Tu Landeros MD Active MECLIZINE HCL 25 MG ORAL TABLET CHEWABLE 1 four times a day as needed for dizziness MECLIZINE HCL 44203643147 No Longer Active Fab Morales DO Active ANGEL BREEZE 2 TEST IN VITRO DISK test tid prn GLUCOSE BLOOD 69409899754 No Longer Active Negra Scott RN Active REGLAN 10 MG ORAL TABLET 1 po TID PRN Nausea METOCLOPRAMIDE HCL 98852681924 No Longer Active Tu Landeros MD Active METFORMIN HCL 500 MG ORAL TABLET 1 PO BID METFORMIN HCL 52669186304 No Longer Active Tu Landeros MD Active AMBIEN 10 MG ORAL TABLET 1 tab by mouth at bedtime as needed for sleep 06/10 ZOLPIDEM TARTRATE 41531375758 No Longer Active Tu Landeros MD Active FLUOXETINE HCL 40 MG ORAL CAPSULE 1 po q day FLUOXETINE HCL 15975289034 No Longer Active Mayra [place] Active TRILIPIX 135 MG ORAL CAPSULE DELAYED RELEASE 1 po qd CHOLINE FENOFIBRATE 68019197100 No Longer Active Tu Landeros MD Active AMBIEN 10 MG ORAL TABLET 1 tab by mouth at bedtime as needed for sleep 06/10 AMBIEN 10 MG ORAL TABLET 409482 ZOLPIDEM TARTRATE Inactive METFORMIN HCL 500 MG ORAL TABLET 1 PO BID METFORMIN HCL 500 MG ORAL TABLET 693454 METFORMIN HCL Inactive REGLAN 10 MG ORAL TABLET 1 po TID PRN Nausea REGLAN 10 MG ORAL TABLET 933941 METOCLOPRAMIDE HCL Inactive MECLIZINE HCL 25 MG ORAL TABLET CHEWABLE 1 four times a day as needed for dizziness MECLIZINE HCL 25 MG ORAL TABLET CHEWABLE 588879 MECLIZINE HCL Inactive SOMA 350 MG ORAL TABLET 1 po q 6 hours prn spasm SOMA 350 MG ORAL TABLET 611933 CARISOPRODOL Inactive MELATONIN 5 MG ORAL TABLET Take one by mouth daily MELATONIN 5 MG ORAL TABLET 396391 MELATONIN Inactive MULTIVITAMINS TABS Take one by mouth daily MULTIVITAMINS TABS MULTIPLE VITAMIN Inactive LORTAB 5-500 MG ORAL TABLET 1/2 to 1 tablet by mouth every 4 hours as needed for pain LORTAB 5-500 MG ORAL TABLET 385733 HYDROCODONE-ACETAMINOPHEN Inactive XANAX 0.5 MG ORAL TABLET 1 tablet every 6 hrs prn XANAX 0.5 MG ORAL TABLET 189612 ALPRAZOLAM Inactive AUGMENTIN 875-125 MG ORAL TABLET 1 tab by mouth twice daily with food AUGMENTIN 875-125 MG ORAL TABLET 057146 AMOXICILLIN-POT CLAVULANATE Inactive ALPRAZOLAM 0.5 MG ORAL TABLET 1 tab every 6hrs as needed ALPRAZOLAM 0.5 MG ORAL TABLET 730394 ALPRAZOLAM Inactive SPIRONOLACTONE 25 MG ORAL TABLET 0.5 tablet by mouth daily 09/09 SPIRONOLACTONE 25 MG ORAL TABLET 968764 SPIRONOLACTONE Inactive ACCU-CHEK KEYONA PLUS w/Device KIT [...] times daily as needed ACCU-CHEK FASTCLIX LANCETS 90207359767 LANCETS Inactive TRAMADOL HCL 50 MG ORAL TABLET 1 tablets every 6 hours as needed for pain TRAMADOL HCL 50 MG ORAL TABLET 466753 TRAMADOL HCL Inactive VENLAFAXINE HCL 75 MG ORAL TABLET 1 po BID VENLAFAXINE HCL 75 MG ORAL TABLET 397451 VENLAFAXINE HCL Inactive HYDROCODONE-ACETAMINOPHEN 5-500 MG ORAL TABLET take one po Q 4-6 hours prn HYDROCODONE-ACETAMINOPHEN 5-500 MG ORAL TABLET 572885 HYDROCODONE-ACETAMINOPHEN Inactive LORTAB 5-500 MG ORAL TABLET 1/2 to 1 tablet by mouth every 4 hours as needed for pain LORTAB 5-500 MG ORAL TABLET 497891 HYDROCODONE-ACETAMINOPHEN Inactive LAMISIL 250 MG ORAL TABLET 1 po qd LAMISIL 250 MG ORAL TABLET 526067 TERBINAFINE HCL Inactive VENLAFAXINE HCL 37.5 MG ORAL TABLET 1 po BID VENLAFAXINE HCL 37.5 MG ORAL TABLET 079820 VENLAFAXINE HCL Inactive CIPRO 500 MG ORAL TABLET 1 tablet by mouth twice daily CIPRO 500 MG ORAL TABLET 377217 CIPROFLOXACIN HCL Inactive VENLAFAXINE HCL 75 MG ORAL TABLET 1 po BID VENLAFAXINE HCL 75 MG ORAL TABLET 738520 VENLAFAXINE HCL Inactive SIMVASTATIN 40 MG ORAL TABLET Take one by mouth daily SIMVASTATIN 40 MG ORAL TABLET 408291 SIMVASTATIN Inactive OMEPRAZOLE 20 MG ORAL TABLET DELAYED RELEASE 1 PO 30 MIN BEFORE 1ST MEAL 2010 OMEPRAZOLE 20 MG ORAL TABLET DELAYED RELEASE 388969 OMEPRAZOLE Inactive FENOFIBRATE 145 MG ORAL TABLET 1 po qd FENOFIBRATE 145 MG ORAL TABLET 155453 FENOFIBRATE Inactive BACTRIM DS 800-160 MG ORAL TABLET 1 bid x 14 day start 09-28-13 BACTRIM DS 800-160 MG ORAL TABLET 915500 SULFAMETHOXAZOLE- TRIMETHOPRIM Inactive B-12 100 MCG ORAL TABLET Take one by mouth daily B-12 100 MCG ORAL TABLET CYANOCOBALAMIN Inactive GABAPENTIN 100 MG ORAL CAPSULE 1 po bid GABAPENTIN 100 MG ORAL CAPSULE 232298 GABAPENTIN Inactive HYDROCODONE-ACETAMINOPHEN 5-325 MG ORAL TABLET 1 tab by mouth every 6 hours as needed for pain HYDROCODONE-ACETAMINOPHEN 5-325 MG ORAL TABLET 531543 HYDROCODONE-ACETAMINOPHEN Inactive CIPRO 500 MG ORAL TABLET 1 bid x 14 days start 09-28-13 CIPRO 500 MG ORAL TABLET 241356 CIPROFLOXACIN HCL Inactive ALIGN 4 MG ORAL [...] SODIUM 50 MG ORAL TABLET DELAYED RELEASE 510869 DICLOFENAC SODIUM Inactive PREDNISONE 20 MG ORAL TABLET 2 tablets once daily for 2 days, then 1 tablet once daily for 2 days PREDNISONE 20 MG ORAL TABLET 301092 PREDNISONE Inactive TRUEDRAW LANCING DEVICE Test twice a day dx 250.0 TRUEDRAW LANCING DEVICE LANCET DEVICES Inactive TRUERESULT BLOOD GLUCOSE w/Device KIT test blood sugar twice daily dx 250.00 TRUERESULT BLOOD GLUCOSE w/Device KIT BLOOD GLUCOSE MONITORING SUPPL Inactive FLONASE 50 MCG/ACT NASAL SUSPENSION 1 spray each nostril twice daily until bottle empty FLONASE 50 MCG/ACT NASAL SUSPENSION 7383793 FLUTICASONE PROPIONATE Inactive VENTOLIN HFA 108 (90 Base) MCG/ACT INHALATION AEROSOL SOLUTION 1-2 puffs every 4 hours if needed for cough/congestion VENTOLIN HFA 108 (90 Base) MCG/ACT INHALATION AEROSOL SOLUTION ALBUTEROL SULFATE Inactive REQUIP 2 MG ORAL TABLET Take one tablet at bedtime prn REQUIP 2 MG ORAL TABLET 362847 ROPINIROLE HCL Inactive SUPER B COMPLEX/VITAMIN C ORAL TABLET 1 qd SUPER B COMPLEX/VITAMIN C ORAL TABLET 99679807401 B COMPLEX-C Inactive TRUEDRAW LANCING DEVICE test blood sugar twice daily dx: 250.00 TRUEDRAW LANCING DEVICE LANCET DEVICES Inactive TRUETEST TEST IN VITRO STRIP test blood sugar twice daily. DX 250.0 TRUETEST TEST IN VITRO STRIP GLUCOSE BLOOD Inactive CYCLOBENZAPRINE HCL 10 MG ORAL TABLET 1 po TID PRN Muscle Spasm CYCLOBENZAPRINE HCL 10 MG ORAL TABLET 386552 CYCLOBENZAPRINE HCL Inactive DICLOFENAC SODIUM 50 MG ORAL TABLET DELAYED RELEASE 1 po BID PRN Pain DICLOFENAC SODIUM 50 MG ORAL TABLET DELAYED RELEASE 914717 DICLOFENAC SODIUM Inactive DICLOFENAC SODIUM 75 MG ORAL TABLET DELAYED RELEASE 1 po BID PRN Pain DICLOFENAC SODIUM 75 MG ORAL TABLET DELAYED RELEASE 612945 DICLOFENAC SODIUM Inactive TRIAMCINOLONE ACETONIDE 0.1 % EXTERNAL OINTMENT Apply to affected areas TID for up to 2 weeks TRIAMCINOLONE ACETONIDE 0.1 % EXTERNAL OINTMENT 6983679 TRIAMCINOLONE ACETONIDE Inactive PREDNISONE 20 MG ORAL TABLET 2 tabs daily for 3 days, 1 tab daily for 3 days, 1/2 tab daily for 2 days PREDNISONE 20 MG ORAL TABLET 568223 PREDNISONE Inactive PREDNISONE 20 MG ORAL TABLET 2 tabs daily for 3 days, 1 tab daily for 3 days, 1/2 tab daily for 2 days PREDNISONE 20 MG ORAL TABLET 873384 PREDNISONE Inactive BACTRIM DS 800-160 MG ORAL TABLET 1 po BID x 7 days BACTRIM DS 800-160 MG ORAL TABLET 390282 SULFAMETHOXAZOLE-TRIMETHOPRIM Inactive ZITHROMAX 250 MG ORAL TABLET 2 po today, then 1 po q days 2-5 ZITHROMAX 250 MG ORAL TABLET 680160 AZITHROMYCIN Inactive Advance Directives Directive Description Start Date DISCUSSED WITH PATIENT -- NO DECISION MADE Immunizations Vaccine Administration Date Value Standard Description Seasonal influenza vaccine, injectable, containing preservative, for > 3 years old (Afluria, FluLaval, Fluzone, Fluvirin, Fluarix, Agriflu(>=18 yo)) Fluzone (>3 yrs.) [[id number]] Influenza, seasonal, injectable influenza immunization (Flu Vax) has been administered 02/22/2012 influenza virus vaccine, unspecified formulation Seasonal influenza vaccine, injectable, containing preservative, for > 3 years old (Afluria, FluLaval, Fluzone, Fluvirin, Fluarix, Agriflu(>=18 yo)) Fluzone (>3 yrs.) [[id number]] Influenza, seasonal, injectable Vital Signs Date Name Value Unit Range Description blood pressure, diastolic 67 mm[Hg] BP ac [...] ... - Chemistry sodium, serum 141 mmol/L 715-321 1241/01/16 carbon dioxide, venous blood 28.3 mmol/L 21.0-32.0 [...] 6.7 % 4.3-6.0 cholesterol, serum 106 mg/dL 399-579 6703/01/16 triglyceride, serum, fasting 173 mg/dL 30-200 HDL [...] A1c - Chemistry cholesterol, serum 135 mg/dL 635-914 7448/05/17 HDL cholesterol, serum 41 mg/dL > OR=46 triglyceride, serum, fasting 206 mg/dL <150 LDL cholesterol, serum 53 MG/DL (CALC) mg/dL <130 cholesterol/HDL ratio, serum 3.3 (calc) < OR=5.0 Lab Report: HGBA1C - Chemistry hemoglobin A1C, blood, as % of total hemoglobin 6.5 % 4.3-6.0 Encounters Code Encounter Date Provider Facility CPT-60646 Level 3 Est. Patient 10:13:19 NUTRITIONALIST Lesli Kellogg RFID ANALYST [facility] CPT-63292 Level 4 Est. Patient 13:42:02 NUTRITIONALIST Tu Landeros MD [facility] CPT-44568 Level 3 Est. Patient 14:20:36 CDT Tu Landeros MD [facility] CPT-74787 Level 4 Est. Patient 14:28:34 CDT Tu Landeros MD [facility] CPT-24859 Level 3 Est. Patient 13:33:09 CDT Tu Landeros MD [facility] CPT-36617 Level 4 Est. Patient 14:29:21 CDT Tu Landeros MD [facility] CPT-64494 Level 4 Est. Patient 09:08:17 NUTRITIONALIST Tu Landeros MD [facility] CPT-82989 Level 4 Est. Patient 14:40:19 CDT Tu Landeros MD [facility] CPT-33774 Level 4 Est. Patient 14:06:04 NUTRITIONALIST Tu Landeros MD [facility] CPT-29005 Level 3 Est. Patient 14:05:18 NUTRITIONALIST Tu Landeros MD [facility] CPT-62032 Level 3 Est. Patient 10:06:54 NUTRITIONALIST Miranda Farah RFID ANALYST [facility] CPT-79619 Level 4 Est. Patient 13:50:18 NUTRITIONALIST Tu Landeros MD [facility] CPT-67720 Level 3 Est. Patient 10:30:04 CDT Tu Landeros MD [facility] CPT-74062 Level 4 Est. Patient 11:03:38 CDT Tu Landeros MD [facility] CPT-08576 Level 3 Est. Patient 10:20:44 CDT Fab Morales DO [facility] CPT-20739 Level 4 Est. Patient 14:38:57 CDT Tu Landeros MD [facility] CPT-19276 Level 4 Est. Patient 14:27:39 NUTRITIONALIST Tu Landeros MD [facility] CPT-33252 Level 4 Est. Patient 09:45:25 CDT Tu Landeros MD [facility] CPT-69970 Level 4 Est. Patient 09:05:20 NUTRITIONALIST Tu Landeros MD [facility] CPT-59310 Level 4 Est. Patient 14:09:06 CDT Tu Landeros MD [facility] CPT-38070 Level 3 Est. Patient 13:36:54 CDT Tu Landeros MD [facility] CPT-12239 Level 3 Est. Patient 08:59:14 CDT Tu Landeros MD [facility] CPT-16479 Level 3 Est. Patient 13:48:35 CDT Fab Morales DO [facility] CPT-30079 Level 4 Est. Patient 10:05:48 CDT Tu Landeros MD [facility] CPT-87054 Level 3 Est. Patient 13:38:42 CDT Marek BANKS [facility] CPT-75505 Level 5 Est. Patient 08:08:39 CDT Jerrica FRANCIS [facility] CPT-31265 Level 4 Est. Patient 14:23:38 CDT Tu Landeros MD [facility] CPT-49526 Level 3 Est. Patient 11:44:04 CDT Tu Landeros MD [facility] CPT-85617 Level 3 Est. Patient 11:03:20 NUTRITIONALIST Tu Landeros MD [facility] CPT-84524 Level 3 Est. Patient 11:03:14 NUTRITIONALIST Tu Landeros MD [facility] CPT-01980 Level 3 Est. Patient 12:42:49 CDT Tu Landeros MD [facility] CPT-01218 Level 3 Est. Patient 11:52:06 CDT Tu Landeros MD [facility] CPT-60498 Level 3 Est. Patient 13:58:11 CDT Tu Landeros MD [facility] CPT-10003 Level 3 Est. Patient 17:50:07 CDT Fab Morales DO [facility] CPT-80414 Level 3 Est. Patient 12:06:29 CDT Elvira Cervantes MD PhD [facility] CPT-38716 Level 3 Est. Patient 15:50:32 CDT Tu Landeros MD [facility] CPT-24788 Level 4 Est. Patient 16:08:29 CDT Tu Landeros MD [facility] CPT-47291 Level 3 Est. Patient 16:04:19 CDT Tu Landeros MD [facility] CPT-80624 Level 3 Est. Patient 11:22:30 NUTRITIONALIST Tu Landeros MD [facility] CPT-13161 Level 4 Est. Patient 16:24:02 NUTRITIONALIST Tu Landeros MD [facility] CPT-19326 Level 3 Est. Patient 17:21:23 NUTRITIONALIST Tu Landeros MD [facility] Procedures Code Procedure Name Date Entry Date Standard Description CPT-08157 Shoulder, right, comp min 2V - XRAY USE ONLY 13:50:22 CDT CPT-G0009 Administration of Pneumococcal Vaccine 15:08:26 CDT CPT-14739 Prevnar 13 Intramuscular Suspension 15:08:26 CDT 10/08 CPT-G0439 Subsequent Annual Wellness Exam 14:29:22 CDT CPT-51935 Venipuncture Draw Fee 13:15:35 CDT CPT-02516 Magnesium - LAB USE ONLY 11:14:20 NUTRITIONALIST CPT-88213 Lipid - LAB USE ONLY 11:14:20 NUTRITIONALIST CPT-93928 HGBA1C - LAB USE ONLY 11:14:20 NUTRITIONALIST CPT-03340 CMP - LAB USE ONLY 11:14:19 NUTRITIONALIST CPT-86678 CBC - LAB USE ONLY 11:14:19 NUTRITIONALIST CPT-86524 Venipuncture Draw Fee 11:14:18 NUTRITIONALIST CPT-73758 First Vx - Ix admin for Medicare patients 16:46:52 CDT CPT-73191 Fluzone Preservative Free Intramuscular Suspension 16:46 :51 CDT CPT-26039 CBC - LAB USE ONLY 17:14:46 CDT CPT-09115 HGBA1C - LAB USE ONLY 17:14:46 CDT CPT-82133 Venipuncture Draw Fee 17:14:46 CDT CPT-G0438 Initial Annual Wellness Exam 14:13:04 CDT CPT-86661 Breathing Tx 10:06:54 NUTRITIONALIST CPT-30127 Postop F/U Visit 10:02:45 CDT CPT-LR Lesion Removal 09:02:56 CDT CPT-JTINJ Asp/Joint Injection 15:51:27 NUTRITIONALIST CPT-OV Office Visit 15:52:02 NUTRITIONALIST CPT-OV Office Visit 15:45:11 CDT CPT-000 Give Zostavax 14:09:06 CDT CPT-27369 Administration single or combination vaccine inc oral 15 :19:04 CDT CPT-75620 Zoster Vaccine (Zostavax) 15:19:04 CDT CPT-74337 Administration single or combination vaccine inc oral 20 :51:03 CDT CPT-28317 Influenza split virus > age 3 20:51:03 CDT CPT-42846 No Charge Offi Visit 14:52:03 CDT CPT-OV Office Visit 14:57:43 CDT CPT-OV Office Visit 15:22:32 CDT CPT-57893 Administration single or combination [facility] 11 :33:15 CDT CPT-91970 Influenza split virus > age 3 11:33:15 CDT
--- OUTSIDE RECORDS SUMMARY | 2018-04-25 12:57 | XMS REPORT | Clinical Summary ---
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 Moderate or severe vision impairment, both eyes, impairment level not further specified POSTMENOPAUSAL BLEEDING ICD-627.1 Inactive Elvira Cervantes MD PhD HEALTH SCREENING ICD-V70.0 Inactive Elvira Cervantes MD PhD 2011 INSOMNIA, PERSISTENT ICD-307.42 Inactive Tu Landeros MD GASTROENTERITIS ICD-558.9 Inactive Tu Landeros MD DIZZINESS ICD-780.4 Inactive Tu Landeros MD FREQUENCY, URINARY ICD-788.41 Inactive Elvira Cervantes MD PhD FEVER UNSPECIFIED ICD-780.60 Inactive Tu Landeros MD MUSCLE SPASM ICD-728.85 Inactive Tu Landeros MD SCIATICA ICD-724.3 Inactive Tu Landeros MD 2012 BENIGN PAROXYSMAL POSITIONAL VERTIGO ICD-386.11 Inactive Tu Landeros MD PARESTHESIA ICD-782.0 Tessa Landeros MD RASH AND OTHER NONSPECIFIC SKIN ERUPTION ICD-782.1 Inactive Tu Landeros MD LEG CRAMPS, NOCTURNAL ICD-729.82 Inactive Tu Landeros MD CARPAL TUNNEL SYNDROME ICD-354.0 Tessa Landeros MD ARTHRITIS ICD-716.90 Inactive Tu Landeros MD KNEE PAIN ICD-719.46 Inactive Tu Landeros MD SHOULDER PAIN, LEFT ICD-719.41 Inactive Tu Landeros MD CONTUSION OF UNSPECIFIED SITE ICD-924.9 Tessa Landeros MD LOCALIZED SUPERFICIAL SWELLING MASS OR LUMP ICD-782.2 Tessa Landeros MD FATIGUE ICD-780.79 Tessa Landeros MD 2012 PRESSURE ULCER UNSPECIFIED SITE ICD-707.00 Tessa Landeros [...] Sebaceous cyst ICD-706.2 Inactive Tu Landeros MD ONYCHOMYCOSIS ICD-110.1 Inactive Tu Landeros MD Medication List Medication Instructions Start Date Stop Date Generic Name NDC Status Provider Patient Instruction VENTOLIN HFA 108 (90 BASE) MCG/ACT AERS 1-2 puffs every 4 hours if needed for cough/congestion ALBUTEROL SULFATE 04679236159 No Longer Active Ambika Aden APRN Active ZITHROMAX 250 MG TAB 2 po today, then 1 po q days 2-5 AZITHROMYCIN 45826084071 No Longer Active Miranda Suresh APRN Active METFORMIN HCL 1000 MG TABS 1 tablet by mouth twice daily METFORMIN HCL 69653181658 Active Tu Landeros MD Active FLONASE 50 MCG/ACT SUSP 1 spray each nostril twice daily until bottle empty FLUTICASONE PROPIONATE 08488559214 No Longer Active Tu Landeros MD Active COLACE 100 MG CAP 1 po BID PRN Constipation DOCUSATE SODIUM 83044124949 Active Tu Landeros MD Active SIMVASTATIN 40 MG TABS 0.5 tab daily at bedtime SIMVASTATIN 05084669844 Active Tu Landeros MD Active TRUERESULT BLOOD GLUCOSE W/DEVICE KIT test blood sugar twice daily dx 250.00 BLOOD GLUCOSE MONITORING SUPPL 59061973769 No Longer Active Tu Landeros MD Active TRUEDRAW LANCING DEVICE MISC Test twice a day dx 250.0 LANCET DEVICES 67516336996 No Longer Active Tu Landeros MD Active PREDNISONE 20 MG TAB 2 tablets once daily for 2 days, then 1 tablet once daily for 2 days PREDNISONE 37023686957 No Longer Active Tu Landeros MD Active DICLOFENAC SODIUM 50 MG TBEC 1 tablet by mouth three times a day as needed DICLOFENAC SODIUM 92873275007 No Longer Active Fab Morales DO Active TRUEDRAW LANCING DEVICE MISC test blood sugar twice daily dx: 250.00 LANCET DEVICES 59547556496 Active Tu Landeros MD Active TRUETEST TEST INVITR STRP test blood sugar twice daily. DX 250.0 GLUCOSE BLOOD 53539846822 Active uT Landeros MD Active EMBRACE BLOOD GLUCOSE TEST STRP test blood sugar twice daily DX 250.0 2014 GLUCOSE BLOOD 49329215503 No Longer Active Tu Landeros MD Active TRUETEST TEST STRP test blood sugar three times daily dx: 250.00 GLUCOSE BLOOD 96707313908 No Longer Active Suze Corey RMA Active TRUERESULT BLOOD GLUCOSE W/DEVICE KIT use to test blood sugar tid dx: 250.00 BLOOD GLUCOSE MONITORING SUPPL 18095763420 No Longer Active Suze Corey RMA Active ALIGN 4 MG CAPS 1 tid PROBIOTIC PRODUCT 46931223424 No Longer Active Shaun Sy MD Active CIPRO 500 MG TABS 1 bid x 14 days start 09-28-13 CIPROFLOXACIN HCL 16391135482 No Longer Active Shaun Sy MD Active TRAMADOL HCL 50 MG TABS 1-2 tablets every 6 hours as needed for pain TRAMADOL HCL 37850386417 Active Tu Landeros MD Active HYDROCODONE-ACETAMINOPHEN 5-325 MG TABS 1 tab by mouth every 6 hours as needed for pain HYDROCODONE-ACETAMINOPHEN 16271803046 No Longer Active Tu Landeros MD Active OMEPRAZOLE 20 MG CPDR 1 po q a.m. OMEPRAZOLE 95741525178 Active Tu Landeros MD Active GABAPENTIN 100 MG CAPS 1 po bid GABAPENTIN 30726645189 No Longer Active Tu Landeros MD Active B-12 100 MCG TABS Take one by mouth daily CYANOCOBALAMIN 87036782191 No Longer Active Tu Landeros MD Active GABAPENTIN 100 MG CAPS by mouth twice a day GABAPENTIN 52622847439 Active Tiffanie Doyle Active BACTRIM DS 800-160 MG TABS 1 bid x 14 day start 5-8-14 2014/11/ 10 SULFAMETHOXAZOLE-TRIMETHOPRIM 41568812529 No Longer Active Tu Landeros MD Active CARVEDILOL 12.5 MG TABS 1 po BID CARVEDILOL 99120436263 Active Tu Landeros MD Active SUPER B COMPLEX/VITAMIN C TABS 1 qd B COMPLEX-C 40727286560 Active JASPREET Perez Active TRILIPIX 135 MG CPDR 1 q hs CHOLINE FENOFIBRATE 10462660027 Active Tu Landeros MD Active FENOFIBRATE 145 MG TABS 1 po qd FENOFIBRATE 64781334654 No Longer Active JASPREET Perez Active OMEPRAZOLE 20 MG TBEC 1 PO 30 MIN BEFORE 1ST MEAL OMEPRAZOLE 55843522768 No Longer Active JASPREET Perez Active SIMVASTATIN 40 MG TABS Take one by mouth daily SIMVASTATIN 99694585475 No Longer Active JASPREET Perez Active VENLAFAXINE HCL 37.5 MG TABS 1 bid VENLAFAXINE HCL 78913549712 Active Tu Landeros MD Active VENLAFAXINE HCL 75 MG TABS 1 po BID VENLAFAXINE HCL 87852453736 No Longer Active JASPREET Perez Active CIPRO 500 MG TAB 1 tablet by mouth twice daily CIPROFLOXACIN HCL 17179391765 No Longer Active Tu Landeros MD Active VENLAFAXINE HCL 37.5 MG TABS 1 po BID VENLAFAXINE HCL 73009030267 No Longer Active Suze Corey RMMahendra Active LAMISIL 250 MG TAB 1 po qd TERBINAFINE HCL 82810366892 No Longer Active Tu Landeros MD Active LORTAB 5 5-500 MG TABS 1/2 to 1 tablet by mouth every 4 hours as needed for pain HYDROCODONE-ACETAMINOPHEN 51659743417 No Longer Active Tu Landeros MD Active ENALAPRIL MALEATE 20 MG TABS 1.5 po qd ENALAPRIL MALEATE 95856666798 Active Tu Landeros MD Active HYDROCODONE-ACETAMINOPHEN 5-500 MG TABS take one po Q 4-6 hours prn HYDROCODONE-ACETAMINOPHEN 81264766697 No Longer Active Tu Landeros MD Active BACTRIM DS 800-160 MG TABS 1 po BID x 7 days SULFAMETHOXAZOLE-TRIMETHOPRIM 58837011877 No Longer Active Tu Landeros MD Active VENLAFAXINE HCL 75 MG TABS 1 po BID VENLAFAXINE HCL 82556171358 No Longer Active Elvira Cervantes MD PhD Active TRAMADOL HCL 50 MG TABS 1 tablets every 6 hours as needed for pain TRAMADOL HCL 88821471595 No Longer Active Tu Landeros MD Active ACCU-CHEK FASTCLIX LANCETS MISC Use to check bloodsugar three times daily as needed LANCETS 46804798955 No Longer Active Tu Landeros MD Active ACCU-CHEK KEYONA PLUS STRP Use for testing bloodsugars three times daily as needed GLUCOSE BLOOD 96948152046 No Longer Active Tu Landeros MD Active ACCU-CHEK KEYONA PLUS W/DEVICE KIT Use for testing bloodsugars three times daily as needed BLOOD GLUCOSE MONITORING SUPPL 52865312104 No Longer Active Tu Landeros MD Active SPIRONOLACTONE 25 MG TAB 0.5 tablet by mouth daily SPIRONOLACTONE 32636459699 No Longer Active Tu Landeros MD Active ALPRAZOLAM 0.5 MG TABS 1 tab every 6hrs as needed ALPRAZOLAM 11350663834 No Longer Active Tu Landeros MD Active AUGMENTIN 875-125 MG TAB 1 tab by mouth twice daily with food AMOXICILLIN-POT CLAVULANATE 27747755270 No Longer Active Tu Landeros MD Active PREDNISONE 20 MG TAB 2 tabs daily for 3 days, 1 tab daily for 3 days, 1/2 tab daily for 2 days PREDNISONE 29250353571 No Longer Active Tu Landeros MD Active XANAX 0.5 MG TABS 1 tablet every 6 hrs prn ALPRAZOLAM 94276330471 No Longer Active Tu Landeros MD Active PREDNISONE 20 MG TAB 2 tabs daily for 3 days, 1 tab daily for 3 days, 1/2 tab daily for 2 days PREDNISONE 97211025464 No Longer Active Tu Landeros MD Active TRIAMCINOLONE ACETONIDE 0.1 % OINT Apply to affected areas TID for up to 2 weeks TRIAMCINOLONE ACETONIDE 79629485863 No Longer Active Tu Landeros MD Active LORTAB 5 5-500 MG TABS 1/2 to 1 tablet by mouth every 4 hours as needed for pain HYDROCODONE-ACETAMINOPHEN 29881371744 No Longer Active Tu Landeros MD Active MULTIVITAMINS TABS Take one by mouth daily MULTIPLE VITAMIN 84855045197 No Longer Active Tu Landeros MD Active MELATONIN 5 MG TABS Take one by mouth daily MELATONIN 98590709727 No Longer Active Tu Landeros MD Active SOMA 350 MG TAB 1 po q 6 hours prn spasm CARISOPRODOL 57442192824 No Longer Active Tu Landeros MD Active MECLIZINE HCL 25 MG CHEW TAB 1 four times a day as needed for dizziness 08/05 MECLIZINE HCL 11557430953 No Longer Active Fab Morales DO Active ANGEL BREEZE 2 TEST DISK test tid prn GLUCOSE BLOOD 12962530497 No Longer Active Negra Scott RN Active REGLAN 10 MG TAB 1 po TID PRN Nausea METOCLOPRAMIDE HCL 29841614200 No Longer Active Tu Landeros MD Active METFORMIN HCL 500 MG TABS 1 PO BID METFORMIN HCL 32360119961 No Longer Active Tu Landeros MD Active AMBIEN 10 MG TAB 1 tab by mouth at bedtime as needed for sleep ZOLPIDEM TARTRATE 14144958993 No Longer Active Tu Landeros MD Active FLUOXETINE HCL 40 MG CAPS 1 po q day FLUOXETINE HCL 97466151972 No Longer Active Mayra Terry Active FISH OIL 1000 MG CAPS Take one by mouth daily OMEGA-3 FATTY ACIDS 59080394922 Active Tu Landeros MD Active GLUCOSAMINE 500 MG TABS Take 2 tab po qd GLUCOSAMINE 24935220416 Active Tu Landeros MD Active TRILIPIX 135 MG CPDR 1 po qd CHOLINE FENOFIBRATE 97757291955 No Longer Active Tu Landeros MD Active ASPIRIN 81 MG CHEW TAB 1 tablet by mouth daily ASPIRIN 46402274992 Active Tu Landeros MD Active FUROSEMIDE 40 MG TAB 1 tablet by mouth daily FUROSEMIDE 77028149177 Active Tu Landeros MD Active REQUIP 2 MG TABS Take one tablet at bedtime prn ROPINIROLE HCL 56147344626 Active Tu Landeros MD Active KLOR-CON 10 10 MEQ CR-TABS TAKE 2 TABS DAILY POTASSIUM CHLORIDE 32128617042 Active Tu Landeros MD Active AMBIEN 10 MG TAB 1 tab by mouth at bedtime as needed for sleep AMBIEN 10 MG TAB 159987 ZOLPIDEM TARTRATE Inactive METFORMIN HCL 500 MG TABS 1 PO BID METFORMIN HCL 500 MG TABS 675689 METFORMIN HCL Inactive REGLAN 10 MG TAB 1 po TID PRN Nausea REGLAN 10 MG TAB 719038 METOCLOPRAMIDE HCL Inactive MECLIZINE HCL 25 MG CHEW TAB 1 four times a day as needed for dizziness 08/05 MECLIZINE HCL 25 MG CHEW TAB 154066 MECLIZINE HCL Inactive SOMA 350 MG TAB 1 po q 6 hours prn spasm SOMA 350 MG TAB 989036 CARISOPRODOL Inactive MELATONIN 5 MG TABS Take one by mouth daily MELATONIN 5 MG TABS 996986 MELATONIN Inactive MULTIVITAMINS TABS Take one by mouth daily MULTIVITAMINS TABS MULTIPLE VITAMIN Inactive LORTAB 5 5-500 MG TABS 1/2 to 1 tablet by mouth every 4 hours as needed for pain LORTAB 5 5-500 MG TABS HYDROCODONE- ACETAMINOPHEN Inactive XANAX 0.5 MG TABS 1 tablet every 6 hrs prn XANAX 0.5 MG TABS 451064 ALPRAZOLAM Inactive AUGMENTIN 875-125 MG TAB 1 tab by mouth twice daily with food AUGMENTIN 875-125 MG TAB 311119 AMOXICILLIN-POT CLAVULANATE Inactive ALPRAZOLAM 0.5 MG TABS 1 tab every 6hrs as needed ALPRAZOLAM 0.5 MG TABS 116635 ALPRAZOLAM Inactive SPIRONOLACTONE 25 MG TAB 0.5 tablet by mouth daily SPIRONOLACTONE 25 MG TAB 055318 SPIRONOLACTONE Inactive ACCU-CHEK KEYONA PLUS W/DEVICE KIT Use for testing bloodsugars three times daily as needed ACCU-CHEK KEYONA PLUS W/DEVICE KIT BLOOD GLUCOSE MONITORING SUPPL Inactive ACCU-CHEK KEYONA PLUS STRP Use for testing bloodsugars three times daily as needed ACCU-CHEK KEYONA PLUS STRP GLUCOSE BLOOD Inactive ACCU-CHEK FASTCLIX LANCETS MISC Use to check bloodsugar three times daily as needed ACCU-CHEK FASTCLIX LANCETS MISC 67296110993 LANCETS Inactive TRAMADOL HCL 50 MG TABS 1 tablets every 6 hours as needed for pain TRAMADOL HCL 50 MG TABS 820360 TRAMADOL HCL Inactive VENLAFAXINE HCL 75 MG TABS 1 po BID VENLAFAXINE HCL 75 MG TABS 197543 VENLAFAXINE HCL Inactive HYDROCODONE-ACETAMINOPHEN 5-500 MG TABS take one po Q 4-6 hours prn HYDROCODONE-ACETAMINOPHEN 5-500 MG TABS HYDROCODONE- ACETAMINOPHEN Inactive LORTAB 5 5-500 MG TABS 1/2 to 1 tablet by mouth every 4 hours as needed for pain LORTAB 5 5-500 MG TABS HYDROCODONE- ACETAMINOPHEN Inactive LAMISIL 250 MG TAB 1 po qd LAMISIL 250 MG TAB 714269 TERBINAFINE HCL Inactive VENLAFAXINE HCL 37.5 MG TABS 1 po BID VENLAFAXINE HCL 37.5 MG TABS 081710 VENLAFAXINE HCL Inactive CIPRO 500 MG TAB 1 tablet by mouth twice daily CIPRO 500 MG TAB 135737 CIPROFLOXACIN HCL Inactive VENLAFAXINE HCL 75 MG TABS 1 po BID VENLAFAXINE HCL 75 MG TABS 365721 VENLAFAXINE HCL Inactive SIMVASTATIN 40 MG TABS Take one by mouth daily SIMVASTATIN 40 MG TABS 041351 SIMVASTATIN Inactive OMEPRAZOLE 20 MG TBEC 1 PO 30 MIN BEFORE 1ST MEAL OMEPRAZOLE 20 MG TBEC 815072 OMEPRAZOLE Inactive FENOFIBRATE 145 MG TABS 1 po qd FENOFIBRATE 145 MG TABS 422880 FENOFIBRATE Inactive BACTRIM DS 800-160 MG TABS 1 bid x 14 day start 09-28-13 BACTRIM DS 800-160 MG TABS 794554 SULFAMETHOXAZOLE-TRIMETHOPRIM Inactive B-12 100 MCG TABS Take one by mouth daily B-12 100 MCG TABS CYANOCOBALAMIN Inactive GABAPENTIN 100 MG CAPS 1 po bid GABAPENTIN 100 MG CAPS 643111 GABAPENTIN Inactive HYDROCODONE-ACETAMINOPHEN 5-325 MG TABS 1 tab by mouth every 6 hours as needed for pain HYDROCODONE-ACETAMINOPHEN 5-325 MG TABS 428439 HYDROCODONE-ACETAMINOPHEN Inactive CIPRO 500 MG TABS 1 bid x 14 days start 09-28-13 CIPRO 500 MG TABS 298125 CIPROFLOXACIN HCL Inactive ALIGN 4 MG CAPS [...] as needed DICLOFENAC SODIUM 50 MG TBEC 430770 DICLOFENAC SODIUM Inactive PREDNISONE 20 MG TAB 2 tablets once daily for 2 days, then 1 tablet once daily for 2 days PREDNISONE 20 MG TAB 366201 PREDNISONE Inactive TRUEDRAW LANCING DEVICE MISC Test [...] 2 weeks TRIAMCINOLONE ACETONIDE 0.1 % OINT 5164172 TRIAMCINOLONE ACETONIDE Inactive PREDNISONE 20 MG TAB 2 tabs daily for 3 days, 1 tab daily for 3 days, 1/2 tab daily for 2 days PREDNISONE 20 MG TAB 252565 PREDNISONE Inactive PREDNISONE 20 MG TAB 2 tabs daily for 3 days, 1 tab daily for 3 days, 1/2 tab daily for 2 days PREDNISONE 20 MG TAB 826277 PREDNISONE Inactive BACTRIM DS 800-160 MG TABS 1 po BID x 7 days BACTRIM DS 800-160 MG TABS 761180 SULFAMETHOXAZOLE-TRIMETHOPRIM Inactive ZITHROMAX 250 MG TAB 2 po today, then 1 po q days 2-5 ZITHROMAX 250 MG TAB 2502131 AZITHROMYCIN Inactive Advance Directives Directive Description Start Date DISCUSSED WITH PATIENT -- NO DECISION MADE Immunizations Vaccine Administration Date Value Standard Description Seasonal influenza vaccine, injectable, containing preservative, for > 3 years old (Afluria, FluLaval, Fluzone, Fluvirin, Fluarix, Agriflu(>=18 yo)) Fluzone (>3 yrs.) [[id number]] Influenza, seasonal, injectable influenza immunization (Flu Vax) has been administered 02/22/2012 influenza virus vaccine, unspecified formulation Seasonal influenza vaccine, injectable, containing preservative, for > 3 years old (Afluria, FluLaval, Fluzone, Fluvirin, Fluarix, Agriflu(>=18 yo)) Fluzone (>3 yrs.) [[id number]] Influenza, seasonal, injectable Vital Signs Date Name [...] Report: Basic Metabolic Panel, MICROALBUMIN - Chemistry blood glucose 142 mg/dL 65-110 carbon dioxide, venous blood 28.9 mmol/L 21.0-32.0 creatinine, serum 0.92 mg/dL 0.55-1.30 urea nitrogen, blood 17 mg/dL 7-18 calcium, serum 9.1 mg/dL 8.5-10.1 chloride, serum 105 mmol/L 98-107 potassium, serum 4.5 mmol/L 3.5-5.2 sodium, serum 142 mmol/L 845-651 3820/10/08 albumin/creatinine ratio, urine < 30 mg/g mg/g{creat} 0-29 Lab Report: Basic Metabolic Panel, MICROALBUMIN - Lab microalbumin, urine 10 0-19 Lab Report: CBC - Hematology platelet count 251 10^3/MM^3 10*3/mm3 129-767 6455/09/07 leukocyte count, blood 8.4 10^3/MM^3 10*3/mm3 4.6-10.2 erythrocyte (RBC) count 4.38 10^6/MM^3 10*6/mm3 4.04-5.48 hemoglobin, blood 13.1 g/dL 12.0-16.0 hematocrit, blood 39.7 % 36.0-46.0 mean corpuscular volume, RBC 91 fL 80-97 mean corpuscular hemoglobin, RBC 29.9 pg 27.0-31.2 mean corpuscular hemoglobin concentration, RBC 33.0 G/DL % 31.8- 35.4 red blood cell distribution width 15.3 % 11.6-14.8 Lab Report: HGBA1C - Chemistry hemoglobin A1C, blood, as % of total hemoglobin 7.7 % 4.3-6.0 hemoglobin A1C, blood, as % of total hemoglobin 7.1 % 4.3-6.0 hemoglobin A1C, blood, as % of total hemoglobin 7.4 % 4.3-6.0 sodium, serum 140 mmol/L 000-623 6090/09/07 potassium, serum 4.3 mmol/L 3.5-5.2 chloride, serum 104 mmol/L 98-107 carbon dioxide, venous blood 27.7 mmol/L 21.0-32.0 blood glucose 156 mg/dL 65-110 calcium, serum 9.3 mg/dL 8.5-10.1 urea nitrogen, blood 23 mg/dL - creatinine, serum 1.21 mg/dL 0.55-1.30 Lab Report: Lipid Panel, Comp. Metabolic Panel - Chemistry cholesterol, serum 124 mg/dL 510-557 4100/01/12 triglyceride, serum, fasting 135 mg/dL 30-200 HDL cholesterol, serum 41 mg/dL 32-96 LDL cholesterol, serum 56 mg/dL 0-130 sodium, serum 140 mmol/L 710-869 6852/01/12 carbon dioxide, venous blood 27.7 mmol/L 21.0-32.0 potassium, serum 4.5 mmol/L 3.5-5.2 chloride, serum 104 mmol/L 98-107 blood glucose 139 mg/dL 65-110 urea nitrogen, blood 16 mg/dL 7-18 alanine aminotransferase (SGPT), serum 32 U/L 12-78 aspartate aminotransferase (SGOT), serum 25 U/L 15-37 calcium, serum 9.1 mg/dL 8.5-10.1 bilirubin, serum, total 0.50 mg/dL 0.00-1.00 Encounters Code Encounter Date Provider Facility CPT-16334 Level 4 Est. Patient 14:06:04 LOCOMOTIVE CRANE ENGINEER Tu Landeros MD [facility] CPT-87862 Level 3 Est. Patient 14:05:18 LOCOMOTIVE CRANE ENGINEER Tu Landeros MD [facility] CPT-54975 Level 3 Est. Patient 10:06:54 LOCOMOTIVE CRANE ENGINEER Miranda Suresh APRN [facility] CPT-05016 Level 4 Est. Patient 13:50:18 LOCOMOTIVE CRANE ENGINEER Tu Landeros MD [facility] CPT-49582 Level 3 Est. Patient 10:30:04 CDT Tu Landeros MD [facility] CPT-78655 Level 4 Est. Patient 11:03:38 CDT Tu Landeros MD [facility] CPT-06465 Level 3 Est. Patient 10:20:44 CDT Fab Morales DO [facility] CPT-20378 Level 4 Est. Patient 14:38:57 CDT Tu Landeros MD [facility] CPT-72446 Level 4 Est. Patient 14:27:39 LOCOMOTIVE CRANE ENGINEER Tu Landeros MD [facility] CPT-03270 Level 4 Est. Patient 09:45:25 CDT Tu Landeros MD [facility] CPT-42815 Level 4 Est. Patient 09:05:20 LOCOMOTIVE CRANE ENGINEER Tu Landeros MD [facility] CPT-18823 Level 4 Est. Patient 14:09:06 CDT Tu Landeros MD [facility] CPT-70260 Level 3 Est. Patient 13:36:54 CDT Tu Landeros MD [facility] CPT-02819 Level 3 Est. Patient 08:59:14 CDT Tu Landeros MD [facility] CPT-06857 Level 3 Est. Patient 13:48:35 CDT Fab Morales DO [facility] CPT-98399 Level 4 Est. Patient 10:05:48 CDT Tu Landeros MD [facility] CPT-75585 Level 3 Est. Patient 13:38:42 CDT Marek BANKS [facility] CPT-86038 Level 5 Est. Patient 08:08:39 CDT Jerrica Dawsontay FRANCIS [facility] CPT-40537 Level 4 Est. Patient 14:23:38 CDT Tu Landeros MD [facility] CPT-04943 Level 3 Est. Patient 11:44:04 CDT Tu Landeros MD [facility] CPT-04204 Level 3 Est. Patient 11:03:20 LOCOMOTIVE CRANE ENGINEER Tu Landeros MD [facility] CPT-90403 Level 3 Est. Patient 11:03:14 LOCOMOTIVE CRANE ENGINEER Tu Landeros MD [facility] CPT-17711 Level 3 Est. Patient 12:42:49 CDT Tu Landeros MD [facility] CPT-20415 Level 3 Est. Patient 11:52:06 CDT Tu Landeros MD [facility] CPT-25295 Level 3 Est. Patient 13:58:11 CDT Tu Landeros MD [facility] CPT-24573 Level 3 Est. Patient 17:50:07 CDT Fab Morales DO [facility] CPT-82315 Level 3 Est. Patient 12:06:29 CDT Elvira Cervantes MD PhD [facility] CPT-30606 Level 3 Est. Patient 15:50:32 CDT Tu Landeros MD [facility] CPT-06707 Level 4 Est. Patient 16:08:29 CDT Tu Landeros MD [facility] CPT-92768 Level 3 Est. Patient 16:04:19 CDT Tu Landeros MD [facility] CPT-33322 Level 3 Est. Patient 11:22:30 LOCOMOTIVE CRANE ENGINEER Tu Landeros MD [facility] CPT-60351 Level 4 Est. Patient 16:24:02 LOCOMOTIVE CRANE ENGINEER Tu Landeros MD [facility] CPT-48863 Level 3 Est. Patient 17:21:23 LOCOMOTIVE CRANE ENGINEER Tu Landeros MD [facility] Procedures Code Procedure Name Date Entry Date Standard Description CPT-74704 CBC - LAB USE ONLY 17:14:46 CDT CPT-59666 HGBA1C - LAB USE ONLY 17:14:46 CDT CPT-17555 Venipuncture Draw Fee 17:14:46 CDT CPT-G0438 Initial Annual Wellness Exam 14:13:04 CDT CPT-56794 Breathing Tx 10:06:54 LOCOMOTIVE CRANE ENGINEER CPT-21197 Postop F/U Visit 10:02:45 CDT CPT-LR Lesion Removal 09:02:56 CDT CPT-JTINJ Asp/Joint Injection 15:51:27 LOCOMOTIVE CRANE ENGINEER CPT-OV Office Visit 15:52:02 LOCOMOTIVE CRANE ENGINEER CPT-OV Office Visit 15:45:11 CDT CPT-000 Give Zostavax 14:09:06 CDT CPT-89138 Administration single or combination vaccine inc oral 15 :19:04 CDT CPT-75764 Zoster Vaccine (Zostavax) 15:19:04 CDT CPT-15786 Administration single or combination vaccine inc oral 20 :51:03 CDT CPT-56666 Influenza split virus > age 3 20:51:03 CDT CPT-27933 No Charge Offi Visit 14:52:03 CDT CPT-OV Office Visit 14:57:43 CDT CPT-OV Office Visit 15:22:32 CDT CPT-59868 Administration single or combination vaccine inc oral 11 :33:15 CDT CPT-91675 Influenza split virus > age 3 11:33:15 CDT
--- OUTSIDE RECORDS SUMMARY | 2018-04-25 12:58 | XMS REPORT | Clinical Summary ---
Author Author Admin, SACHI Organization [employer] Address Unknown Phone Unavailable Allergies, Adverse Reactions, [...] giddiness BENIGN PAROXYSMAL POSITIONAL VERTIGO 386.11 Resolved uT Landeros MD Benign paroxysmal positional vertigo HYPERTENSION [...] mass, or lump HEALTH SCREENING V70.0 Inactive Sahun Sy MD Routine general medical examination at [...] abdominal wall, anterior, complicated 879.3 Resolved Tu Landreos MD Open wound of abdominal wall, anterior, [...] MD Obesity, unspecified Morbid obesity 278.01 Active uT Landeros MD Morbid obesity Pain in unspecified [...] INSOMNIA, PERSISTENT ICD-307.42 Inactive Tu Landeros MD BENIGN PAROXYSMAL POSITIONAL VERTIGO ICD-386.11 Inactive Tu Landeros MD GASTROENTERITIS ICD-558.9 Inactive Tu Landeros MD LEG CRAMPS, NOCTURNAL ICD-729.82 Inactive Tu Landeros MD FREQUENCY, URINARY ICD-788.41 Inactive Elvira Cervantes MD PhD FEVER UNSPECIFIED ICD-780.60 Inactive Tu Landeros MD MUSCLE SPASM ICD-728.85 Inactive Tu Landeros MD DIZZINESS ICD-780.4 Inactive uT Landeros MD SHOULDER PAIN, LEFT ICD-719.41 Inactive [...] UNSPECIFIED SITE ICD-924.9 Inactive Tu Landeros MD SCIATICA ICD-724.3 Inactive Tu Landeros MD 2012 LOCALIZED SUPERFICIAL SWELLING MASS OR LUMP ICD-782.2 Inactive Tu Landeros MD ONYCHOMYCOSIS ICD-110.1 Inactive Tu Landeros MD PRESSURE ULCER UNSPECIFIED SITE ICD-707.00 Inactive Tu Landeros MD Open wound of abdominal wall, anterior, complicated ICD-879.3 Inactive Tu Landeros MD Open wound of other and unspecified parts of trunk, complicated ICD-879.7 Inactive Tu Landeros MD Knee pain, left, acute ICD-719.46 Inactive Tu Landeros MD Upper respiratory infection, viral ICD-465.9 Tessa Sy MD Ear pain, bilateral ICD-388.70 Inactive Tu Landeros MD Hot flashes ICD-627.2 Inactive Tu Landeros MD Sebaceous cyst ICD-706.2 Inactive Tu Landeros MD Upper respiratory infection, viral ICD-465.9 Inactive Tu Landeros MD Sinusitis - acute ICD-461.9 Tessa Landeros MD Leg pain, left ICD-729.5 Inactive Tu Landeros MD Vision impairment, both eyes, impairment level not further specified ICD- 369.20 Inactive Tu Landeros MD Pain in unspecified foot ICD-729.5 Inactive Tu Landeros MD Shoulder pain, right ICD-719.41 Inactive Tu Landeros MD Great toe pain ICD-729.5 Inactive Tu Landeros MD Osteoarthritis ICD-715.90 Inactive Tu Landeros MD Medication List Medication Instructions Start Date Stop Date Generic Name NDC Status Provider Patient Instruction MAGNESIUM OXIDE 400 MG ORAL TABLET 1 po BID MAGNESIUM OXIDE 42277841009 Active Tu Landeros MD Active SIMVASTATIN 20 MG ORAL TABLET 0.5 po qHS SIMVASTATIN 67564452760 Active Tu Landeros MD Active DICLOFENAC SODIUM 75 MG ORAL TABLET DELAYED RELEASE 1 po BID PRN Pain DICLOFENAC SODIUM 79521774418 No Longer Active Tu Landeros MD Active GABAPENTIN 100 MG ORAL CAPSULE 1 po TID GABAPENTIN 48405589636 Active Tu Landeros MD Active DICLOFENAC SODIUM 50 MG ORAL TABLET DELAYED RELEASE 1 po BID PRN Pain DICLOFENAC SODIUM 57463941575 No Longer Active Tu Landeros MD Active CYCLOBENZAPRINE HCL 10 MG ORAL TABLET 1 po TID PRN Muscle Spasm CYCLOBENZAPRINE HCL 97586150156 No Longer Active Tu Landeros MD Active INVOKANA 100 MG ORAL TABLET 1 po qd CANAGLIFLOZIN 09701519753 Active Tu Landeros MD Active GLIPIZIDE 5 MG ORAL TABLET 1 po qd GLIPIZIDE 56145687419 No Longer Active Tu Landeros MD Active VENLAFAXINE HCL 75 MG ORAL TABLET 1 po BID VENLAFAXINE HCL 13523656906 Active Tu Landeros MD Active GLIMEPIRIDE 1 MG ORAL TABLET 1 po qd GLIMEPIRIDE 35768944431 No Longer Active Tu Landeros MD Active TRUE METRIX BLOOD GLUCOSE TEST IN VITRO STRIP Test blood sugar BID Dx: E11.9 GLUCOSE BLOOD 86584278470 Active Tu Landeros MD Active TRUE METRIX AIR GLUCOSE METER w/Device KIT Test blood glucose BID Dx: E11.9 BLOOD GLUCOSE MONITORING SUPPL 99551705291 Active Tu Landeros MD Active TRUETEST TEST IN VITRO STRIP test blood sugar twice daily. DX 250.0 GLUCOSE BLOOD 34487734908 No Longer Active Mirna Stanley LPN Active TRUEDRAW LANCING DEVICE test blood sugar twice daily dx: 250.00 LANCET DEVICES 86838902916 No Longer Active Mirna Stanley LPN Active ENALAPRIL MALEATE 20 MG ORAL TABLET 2 po qd ENALAPRIL MALEATE 15756230499 Active Tu Landeros MD Active SUPER B COMPLEX/VITAMIN C ORAL TABLET 1 qd B COMPLEX- C 63000309444 No Longer Active Tu Landeros MD Active ASPIRIN EC 81 MG ORAL TABLET DELAYED RELEASE 1 po qd ASPIRIN 64833669028 Active Tu Landeros MD Active GLUCOSAMINE 500 MG TABS 2 po qd GLUCOSAMINE Active Tu Landeros MD Active FISH OIL 1000 MG ORAL CAPSULE 1 po qd OMEGA-3 FATTY ACIDS 01251635559 Active Tu Landeros MD Active METFORMIN HCL 1000 MG ORAL TABLET 1 po BID METFORMIN HCL 28171166008 Active Tu Landeros MD Active KLOR-CON 10 10 MEQ ORAL TABLET EXTENDED RELEASE 2 po qd POTASSIUM CHLORIDE 43199104257 Active Tu Landeros MD Active FUROSEMIDE 40 MG ORAL TABLET 1 po qd FUROSEMIDE 39630785540 Active Tu Landeros MD Active REQUIP 2 MG ORAL TABLET 1 po qHS PRN Restless legs ROPINIROLE HCL 15782632672 Active Tu Landeros MD Active REQUIP 2 MG ORAL TABLET Take one tablet at bedtime prn ROPINIROLE HCL 78476922162 No Longer Active Tu Landeros MD Active VENTOLIN HFA 108 (90 Base) MCG/ACT INHALATION AEROSOL SOLUTION 1-2 puffs every 4 hours if needed for cough/congestion ALBUTEROL SULFATE 23544957355 No Longer Active Ambika Aden APRN Active ZITHROMAX 250 MG ORAL TABLET 2 po today, then 1 po q days 2-5 AZITHROMYCIN 99478247872 No Longer Active Miranda Sofi AMANDA Active FLONASE 50 MCG/ACT NASAL SUSPENSION 1 spray each nostril twice daily until bottle empty FLUTICASONE PROPIONATE 65149990056 No Longer Active Tu Landeros MD Active COLACE 100 MG ORAL CAPSULE 1 po BID PRN Constipation DOCUSATE SODIUM 37520145671 Active Tu Landeros MD Active TRUERESULT BLOOD GLUCOSE w/Device KIT test blood sugar twice daily dx 250.00 BLOOD GLUCOSE MONITORING SUPPL 09431993449 No Longer Active Tu Landeros MD Active TRUEDRAW LANCING DEVICE Test twice a day dx 250.0 LANCET DEVICES 13938165576 No Longer Active Tu Landeros MD Active PREDNISONE 20 MG ORAL TABLET 2 tablets once daily for 2 days, then 1 tablet once daily for 2 days PREDNISONE 90131075221 No Longer Active Tu Landeros MD Active DICLOFENAC SODIUM 50 MG ORAL TABLET DELAYED RELEASE 1 tablet by mouth three times a day as needed DICLOFENAC SODIUM 24610325908 No Longer Active Fab Morales DO Active EMBRACE BLOOD GLUCOSE TEST IN VITRO STRIP test blood sugar twice daily DX 250.0 GLUCOSE BLOOD 11818009996 No Longer Active Tu Landeros MD Active TRUETEST TEST IN VITRO STRIP test blood sugar three times daily dx: 250.00 GLUCOSE BLOOD 42921350843 No Longer Active Suzebianca VOGEL Active TRUERESULT BLOOD GLUCOSE w/Device KIT use to test blood sugar tid dx: 250.00 BLOOD GLUCOSE MONITORING SUPPL 68945457395 No Longer Active Suze Corey JASPREET Active ALIGN 4 MG ORAL CAPSULE 1 tid PROBIOTIC PRODUCT 26422273076 No Longer Active Shaun Sy MD Active CIPRO 500 MG ORAL TABLET 1 bid x 14 days start 09-28-13 CIPROFLOXACIN HCL 23375143390 No Longer Active Shaun Sy MD Active TRAMADOL HCL 50 MG ORAL TABLET 1-2 tablets every 6 hours as needed for pain TRAMADOL HCL 83436868962 Active Tu Landeros MD Active HYDROCODONE-ACETAMINOPHEN 5-325 MG ORAL TABLET 1 tab by mouth every 6 hours as needed for pain HYDROCODONE-ACETAMINOPHEN 12584746289 No Longer Active Tu Landeros MD Active OMEPRAZOLE 20 MG ORAL CAPSULE DELAYED RELEASE 1 po q a.m. OMEPRAZOLE 54650080341 Active Fab Morales DO Active GABAPENTIN 100 MG ORAL CAPSULE 1 po bid GABAPENTIN 69889328420 No Longer Active Tu Landeros MD Active B-12 100 MCG ORAL TABLET Take one by mouth daily CYANOCOBALAMIN 00059537759 No Longer Active Tu Landeros MD Active BACTRIM DS 800-160 MG ORAL TABLET 1 bid x 14 day start 09-28-13 SULFAMETHOXAZOLE-TRIMETHOPRIM 66789819572 No Longer Active Tu Landeros MD Active CARVEDILOL 12.5 MG ORAL TABLET 1 po BID CARVEDILOL 72237459876 Active Tu Landeros MD Active TRILIPIX 135 MG ORAL CAPSULE DELAYED RELEASE 1 q hs CHOLINE FENOFIBRATE 93620221311 Active Tu Landeros MD Active FENOFIBRATE 145 MG ORAL TABLET 1 po qd FENOFIBRATE 24773444998 No Longer Active JASPREET Perez Active OMEPRAZOLE 20 MG ORAL TABLET DELAYED RELEASE 1 PO 30 MIN BEFORE 1ST MEAL 2010 OMEPRAZOLE 10827045344 No Longer Active JASPREET Perez Active SIMVASTATIN 40 MG ORAL TABLET Take one by mouth daily SIMVASTATIN 53152268693 No Longer Active JASPREET Perez Active VENLAFAXINE HCL 75 MG ORAL TABLET 1 po BID VENLAFAXINE HCL 17190069275 No Longer Active JASPREET Perez Active CIPRO 500 MG ORAL TABLET 1 tablet by mouth twice daily CIPROFLOXACIN HCL 70937790797 No Longer Active Tu Landeros MD Active VENLAFAXINE HCL 37.5 MG ORAL TABLET 1 po BID VENLAFAXINE HCL 26706427592 No Longer Active Suze VOGEL Active LAMISIL 250 MG ORAL TABLET 1 po qd TERBINAFINE HCL 03820415346 No Longer Active Tu Landeros MD Active LORTAB 5-500 MG ORAL TABLET 1/2 to 1 tablet by mouth every 4 hours as needed for pain HYDROCODONE-ACETAMINOPHEN 38081099984 No Longer Active Tu Landeros MD Active HYDROCODONE-ACETAMINOPHEN 5-500 MG ORAL TABLET take one po Q 4-6 hours prn HYDROCODONE-ACETAMINOPHEN 18642937912 No Longer Active Tu Landeros MD Active BACTRIM DS 800-160 MG ORAL TABLET 1 po BID x 7 days SULFAMETHOXAZOLE-TRIMETHOPRIM 86914434185 No Longer Active Tu Landeros MD Active VENLAFAXINE HCL 75 MG ORAL TABLET 1 po BID VENLAFAXINE HCL 99450372419 No Longer Active Elvira Cervantes MD PhD Active TRAMADOL HCL 50 MG ORAL TABLET 1 tablets every 6 hours as needed for pain TRAMADOL HCL 94690855638 No Longer Active Tu Landeros MD Active ACCU-CHEK FASTCLIX LANCETS Use to check bloodsugar three times daily as needed LANCETS 23301982720 No Longer Active Tu Landeros MD Active ACCU-CHEK KEYONA PLUS IN VITRO STRIP Use for testing bloodsugars three times daily as needed GLUCOSE BLOOD 38367549024 No Longer Active Tu Landeros MD Active ACCU-CHEK KEYONA PLUS w/Device KIT Use for testing bloodsugars three times daily as needed BLOOD GLUCOSE MONITORING SUPPL 68446278143 No Longer Active Tu Landeros MD Active SPIRONOLACTONE 25 MG ORAL TABLET 0.5 tablet by mouth daily 09/09 SPIRONOLACTONE 55240717681 No Longer Active Tu Landeros MD Active ALPRAZOLAM 0.5 MG ORAL TABLET 1 tab every 6hrs as needed ALPRAZOLAM 02731419605 No Longer Active Tu Landeros MD Active AUGMENTIN 875-125 MG ORAL TABLET 1 tab by mouth twice daily with food AMOXICILLIN-POT CLAVULANATE 99844796965 No Longer Active Tu Landeros MD Active PREDNISONE 20 MG ORAL TABLET 2 tabs daily for 3 days, 1 tab daily for 3 days, 1/2 tab daily for 2 days PREDNISONE 42196054147 No Longer Active Tu Landeros MD Active XANAX 0.5 MG ORAL TABLET 1 tablet every 6 hrs prn ALPRAZOLAM 06687794226 No Longer Active Tu Landeros MD Active PREDNISONE 20 MG ORAL TABLET 2 tabs daily for 3 days, 1 tab daily for 3 days, 1/2 tab daily for 2 days PREDNISONE 84282533890 No Longer Active Tu Landeros MD Active TRIAMCINOLONE ACETONIDE 0.1 % EXTERNAL OINTMENT Apply to affected areas TID for up to 2 weeks TRIAMCINOLONE ACETONIDE 22491997548 No Longer Active Tu Landeros MD Active LORTAB 5-500 MG ORAL TABLET 1/2 to 1 tablet by mouth every 4 hours as needed for pain HYDROCODONE-ACETAMINOPHEN 00163081808 No Longer Active Tu Landeros MD Active MULTIVITAMINS TABS Take one by mouth daily MULTIPLE VITAMIN 51310839640 No Longer Active Tu Landeros MD Active MELATONIN 5 MG ORAL TABLET Take one by mouth daily MELATONIN 27462887719 No Longer Active Tu Landeros MD Active SOMA 350 MG ORAL TABLET 1 po q 6 hours prn spasm CARISOPRODOL 94964534256 No Longer Active Tu Landeros MD Active MECLIZINE HCL 25 MG ORAL TABLET CHEWABLE 1 four times a day as needed for dizziness MECLIZINE HCL 96406283242 No Longer Active Fab Morales DO Active ANGEL BREEZE 2 TEST IN VITRO DISK test tid prn GLUCOSE BLOOD 60998280302 No Longer Active Negra Scott MICHAEL Active REGLAN 10 MG ORAL TABLET 1 po TID PRN Nausea METOCLOPRAMIDE HCL 41192567065 No Longer Active Tu Landeros MD Active METFORMIN HCL 500 MG ORAL TABLET 1 PO BID METFORMIN HCL 48598736706 No Longer Active Tu Landeros MD Active AMBIEN 10 MG ORAL TABLET 1 tab by mouth at bedtime as needed for sleep 06/10 ZOLPIDEM TARTRATE 75809165505 No Longer Active Tu Landeros MD Active FLUOXETINE HCL 40 MG ORAL CAPSULE 1 po q day FLUOXETINE HCL 28453190636 No Longer Active Mayra Terry Active TRILIPIX 135 MG ORAL CAPSULE DELAYED RELEASE 1 po qd CHOLINE FENOFIBRATE 04670905149 No Longer Active Tu Landeros MD Active AMBIEN 10 MG ORAL TABLET 1 tab by mouth at bedtime as needed for sleep 06/10 AMBIEN 10 MG ORAL TABLET 861899 ZOLPIDEM TARTRATE Inactive METFORMIN HCL 500 MG ORAL TABLET 1 PO BID METFORMIN HCL 500 MG ORAL TABLET 425590 METFORMIN HCL Inactive REGLAN 10 MG ORAL TABLET 1 po TID PRN Nausea REGLAN 10 MG ORAL TABLET 209797 METOCLOPRAMIDE HCL Inactive MECLIZINE HCL 25 MG ORAL TABLET CHEWABLE 1 four times a day as needed for dizziness MECLIZINE HCL 25 MG ORAL TABLET CHEWABLE 556706 MECLIZINE HCL Inactive SOMA 350 MG ORAL TABLET 1 po q 6 hours prn spasm SOMA 350 MG ORAL TABLET 689431 CARISOPRODOL Inactive MELATONIN 5 MG ORAL TABLET Take one by mouth daily MELATONIN 5 MG ORAL TABLET 151223 MELATONIN Inactive MULTIVITAMINS TABS Take one by mouth daily MULTIVITAMINS TABS MULTIPLE VITAMIN Inactive LORTAB 5-500 MG ORAL TABLET 1/2 to 1 tablet by mouth every 4 hours as needed for pain LORTAB 5-500 MG ORAL TABLET 575286 HYDROCODONE-ACETAMINOPHEN Inactive XANAX 0.5 MG ORAL TABLET 1 tablet every 6 hrs prn XANAX 0.5 MG ORAL TABLET 889430 ALPRAZOLAM Inactive AUGMENTIN 875-125 MG ORAL TABLET 1 tab by mouth twice daily with food AUGMENTIN 875-125 MG ORAL TABLET 570973 AMOXICILLIN-POT CLAVULANATE Inactive ALPRAZOLAM 0.5 MG ORAL TABLET 1 tab every 6hrs as needed ALPRAZOLAM 0.5 MG ORAL TABLET 210635 ALPRAZOLAM Inactive SPIRONOLACTONE 25 MG ORAL TABLET 0.5 tablet by mouth daily 09/09 SPIRONOLACTONE 25 MG ORAL TABLET 119631 SPIRONOLACTONE Inactive ACCU-CHEK KEYONA PLUS w/Device KIT [...] times daily as needed ACCU-CHEK FASTCLIX LANCETS 26947284537 LANCETS Inactive TRAMADOL HCL 50 MG ORAL TABLET 1 tablets every 6 hours as needed for pain TRAMADOL HCL 50 MG ORAL TABLET 011070 TRAMADOL HCL Inactive VENLAFAXINE HCL 75 MG ORAL TABLET 1 po BID VENLAFAXINE HCL 75 MG ORAL TABLET 237935 VENLAFAXINE HCL Inactive HYDROCODONE-ACETAMINOPHEN 5-500 MG ORAL TABLET take one po Q 4-6 hours prn HYDROCODONE-ACETAMINOPHEN 5-500 MG ORAL TABLET 651990 HYDROCODONE-ACETAMINOPHEN Inactive LORTAB 5-500 MG ORAL TABLET 1/2 to 1 tablet by mouth every 4 hours as needed for pain LORTAB 5-500 MG ORAL TABLET 490787 HYDROCODONE-ACETAMINOPHEN Inactive LAMISIL 250 MG ORAL TABLET 1 po qd LAMISIL 250 MG ORAL TABLET 237311 TERBINAFINE HCL Inactive VENLAFAXINE HCL 37.5 MG ORAL TABLET 1 po BID VENLAFAXINE HCL 37.5 MG ORAL TABLET 952956 VENLAFAXINE HCL Inactive CIPRO 500 MG ORAL TABLET 1 tablet by mouth twice daily CIPRO 500 MG ORAL TABLET 227413 CIPROFLOXACIN HCL Inactive VENLAFAXINE HCL 75 MG ORAL TABLET 1 po BID VENLAFAXINE HCL 75 MG ORAL TABLET 413458 VENLAFAXINE HCL Inactive SIMVASTATIN 40 MG ORAL TABLET Take one by mouth daily SIMVASTATIN 40 MG ORAL TABLET 138925 SIMVASTATIN Inactive OMEPRAZOLE 20 MG ORAL TABLET DELAYED RELEASE 1 PO 30 MIN BEFORE 1ST MEAL 2010 OMEPRAZOLE 20 MG ORAL TABLET DELAYED RELEASE 149295 OMEPRAZOLE Inactive FENOFIBRATE 145 MG ORAL TABLET 1 po qd FENOFIBRATE 145 MG ORAL TABLET 784869 FENOFIBRATE Inactive BACTRIM DS 800-160 MG ORAL TABLET 1 bid x 14 day start 09-28-13 BACTRIM DS 800-160 MG ORAL TABLET 044260 SULFAMETHOXAZOLE- TRIMETHOPRIM Inactive B-12 100 MCG ORAL TABLET Take one by mouth daily B-12 100 MCG ORAL TABLET CYANOCOBALAMIN Inactive GABAPENTIN 100 MG ORAL CAPSULE 1 po bid GABAPENTIN 100 MG ORAL CAPSULE 629967 GABAPENTIN Inactive HYDROCODONE-ACETAMINOPHEN 5-325 MG ORAL TABLET 1 tab by mouth every 6 hours as needed for pain HYDROCODONE-ACETAMINOPHEN 5-325 MG ORAL TABLET 220910 HYDROCODONE-ACETAMINOPHEN Inactive CIPRO 500 MG ORAL TABLET 1 bid x 14 days start 09-28-13 CIPRO 500 MG ORAL TABLET 982847 CIPROFLOXACIN HCL Inactive ALIGN 4 MG ORAL [...] SODIUM 50 MG ORAL TABLET DELAYED RELEASE 170701 DICLOFENAC SODIUM Inactive PREDNISONE 20 MG ORAL TABLET 2 tablets once daily for 2 days, then 1 tablet once daily for 2 days PREDNISONE 20 MG ORAL TABLET 569599 PREDNISONE Inactive TRUEDRAW LANCING DEVICE Test twice a day dx 250.0 TRUEDRAW LANCING DEVICE LANCET DEVICES Inactive TRUERESULT BLOOD GLUCOSE w/Device KIT test blood sugar twice daily dx 250.00 TRUERESULT BLOOD GLUCOSE w/Device KIT BLOOD GLUCOSE MONITORING SUPPL Inactive FLONASE 50 MCG/ACT NASAL SUSPENSION 1 spray each nostril twice daily until bottle empty FLONASE 50 MCG/ACT NASAL SUSPENSION 2224915 FLUTICASONE PROPIONATE Inactive VENTOLIN HFA 108 (90 Base) MCG/ACT INHALATION AEROSOL SOLUTION 1-2 puffs every 4 hours if needed for cough/congestion VENTOLIN HFA 108 (90 Base) MCG/ACT INHALATION AEROSOL SOLUTION ALBUTEROL SULFATE Inactive REQUIP 2 MG ORAL TABLET Take one tablet at bedtime prn REQUIP 2 MG ORAL TABLET 213249 ROPINIROLE HCL Inactive SUPER B COMPLEX/VITAMIN C ORAL TABLET 1 qd SUPER B COMPLEX/VITAMIN C ORAL TABLET 16404980426 B COMPLEX-C Inactive TRUEDRAW LANCING DEVICE test blood sugar twice daily dx: 250.00 TRUEDRAW LANCING DEVICE LANCET DEVICES Inactive TRUETEST TEST IN VITRO STRIP test blood sugar twice daily. DX 250.0 TRUETEST TEST IN VITRO STRIP GLUCOSE BLOOD Inactive CYCLOBENZAPRINE HCL 10 MG ORAL TABLET 1 po TID PRN Muscle Spasm CYCLOBENZAPRINE HCL 10 MG ORAL TABLET 866491 CYCLOBENZAPRINE HCL Inactive DICLOFENAC SODIUM 50 MG ORAL TABLET DELAYED RELEASE 1 po BID PRN Pain DICLOFENAC SODIUM 50 MG ORAL TABLET DELAYED RELEASE 244458 DICLOFENAC SODIUM Inactive DICLOFENAC SODIUM 75 MG ORAL TABLET DELAYED RELEASE 1 po BID PRN Pain DICLOFENAC SODIUM 75 MG ORAL TABLET DELAYED RELEASE 833138 DICLOFENAC SODIUM Inactive TRIAMCINOLONE ACETONIDE 0.1 % EXTERNAL OINTMENT Apply to affected areas TID for up to 2 weeks TRIAMCINOLONE ACETONIDE 0.1 % EXTERNAL OINTMENT 9711028 TRIAMCINOLONE ACETONIDE Inactive PREDNISONE 20 MG ORAL TABLET 2 tabs daily for 3 days, 1 tab daily for 3 days, 1/2 tab daily for 2 days PREDNISONE 20 MG ORAL TABLET 817897 PREDNISONE Inactive PREDNISONE 20 MG ORAL TABLET 2 tabs daily for 3 days, 1 tab daily for 3 days, 1/2 tab daily for 2 days PREDNISONE 20 MG ORAL TABLET 214324 PREDNISONE Inactive BACTRIM DS 800-160 MG ORAL TABLET 1 po BID x 7 days BACTRIM DS 800-160 MG ORAL TABLET 489825 SULFAMETHOXAZOLE-TRIMETHOPRIM Inactive ZITHROMAX 250 MG ORAL TABLET 2 po today, then 1 po q days 2-5 ZITHROMAX 250 MG ORAL TABLET 924643 AZITHROMYCIN Inactive Advance Directives Directive Description Start Date DISCUSSED WITH PATIENT -- NO DECISION MADE Immunizations Vaccine Administration Date Value Standard Description Seasonal influenza vaccine, injectable, containing preservative, for > 3 years old (Afluria, FluLaval, Fluzone, Fluvirin, Fluarix, Agriflu(>=18 yo)) Fluzone (>3 yrs.) [[id number]] Influenza, seasonal, injectable influenza immunization (Flu Vax) has been administered 02/22/2012 influenza virus vaccine, unspecified formulation Seasonal influenza vaccine, injectable, containing preservative, for > 3 years old (Afluria, FluLaval, Fluzone, Fluvirin, Fluarix, Agriflu(>=18 yo)) Fluzone (>3 yrs.) [HQU043] Influenza, seasonal, injectable Vital Signs Date Name [...] ... - Chemistry sodium, serum 141 mmol/L 768-328 4083/01/16 carbon dioxide, venous blood 28.3 mmol/L 21.0-32.0 [...] 6.7 % 4.3-6.0 cholesterol, serum 106 mg/dL 033-699 6313/01/16 triglyceride, serum, fasting 173 mg/dL 30-200 HDL [...] PANEL, LIPID PANEL, HEMOGLOBIN A1c - Chemistry cholesterol/HDL ratio, serum 3.3 (calc) < OR=5.0 LDL cholesterol, serum 53 MG/DL (CALC) mg/dL <130 triglyceride, serum, fasting 206 mg/dL <150 HDL cholesterol, serum 41 mg/dL > OR=46 cholesterol, serum 135 mg/dL 125-200 Lab Report: HGBA1C - Chemistry hemoglobin A1C, blood, as % of total hemoglobin 6.5 % 4.3-6.0 Encounters Code Encounter Date Provider Facility CPT-76293 Level 4 Est. Patient 13:42:02 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 Tu Landeros MD [facility] CPT-37874 Level 3 Est. Patient 14:20:36 CDT Tu Landeros MD [facility] CPT-00139 Level 4 Est. Patient 14:28:34 CDT Tu Landeros MD [facility] CPT-90306 Level 3 Est. Patient 13:33:09 CDT Tu Landeros MD [facility] CPT-67891 Level 4 Est. Patient 14:29:21 CDT Tu Landeros MD [facility] CPT-94845 Level 4 Est. Patient 09:08:17 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 Tu Landeros MD [facility] CPT-88950 Level 4 Est. Patient 14:40:19 CDT Tu Landeros MD [facility] CPT-73597 Level 4 Est. Patient 14:06:04 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 Tu Landeros MD [facility] CPT-09700 Level 3 Est. Patient 14:05:18 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 Tu Landeros MD [facility] CPT-12649 Level 3 Est. Patient 10:06:54 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 Miranda Farah APRN [facility] CPT-66086 Level 4 Est. Patient 13:50:18 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 Tu Landeros MD [facility] CPT-47375 Level 3 Est. Patient 10:30:04 CDT Tu Landeros MD [facility] CPT-46583 Level 4 Est. Patient 11:03:38 CDT Tu aLnderos MD [facility] CPT-02403 Level 3 Est. Patient 10:20:44 CDT Fab Morales DO [facility] CPT-95832 Level 4 Est. Patient 14:38:57 CDT Tu Landeros MD [facility] CPT-63786 Level 4 Est. Patient 14:27:39 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 Tu Landeros MD [facility] CPT-73457 Level 4 Est. Patient 09:45:25 CDT Tu Landeros MD [facility] CPT-84956 Level 4 Est. Patient 09:05:20 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 Tu Landeros MD [facility] CPT-91286 Level 4 Est. Patient 14:09:06 CDT Tu Landeros MD [facility] CPT-09583 Level 3 Est. Patient 13:36:54 CDT Tu Landeros MD [facility] CPT-18354 Level 3 Est. Patient 08:59:14 CDT Tu Landeros MD [facility] CPT-94689 Level 3 Est. Patient 13:48:35 CDT Fab Morales DO [facility] CPT-54736 Level 4 Est. Patient 10:05:48 CDT Tu Landeros MD [facility] CPT-62343 Level 3 Est. Patient 13:38:42 CDT Marek BANKS [facility] CPT-44965 Level 5 Est. Patient 08:08:39 CDT Jerrica FRANCIS [facility] CPT-43694 Level 4 Est. Patient 14:23:38 CDT Tu Landeros MD [facility] CPT-65307 Level 3 Est. Patient 11:44:04 CDT Tu Landeros MD [facility] CPT-95777 Level 3 Est. Patient 11:03:20 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 Tu Landreos MD [facility] CPT-81828 Level 3 Est. Patient 11:03:14 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 Tu Landeros MD [facility] CPT-03494 Level 3 Est. Patient 12:42:49 CDT Tu Landeros MD [facility] CPT-15769 Level 3 Est. Patient 11:52:06 CDT Tu Landeros MD [facility] CPT-20744 Level 3 Est. Patient 13:58:11 CDT Tu Landeros MD [facility] CPT-86776 Level 3 Est. Patient 17:50:07 CDT Fab Morales DO [facility] CPT-08266 Level 3 Est. Patient 12:06:29 CDT Elvira Cervantes MD, PhD [facility] CPT-68459 Level 3 Est. Patient 15:50:32 CDT Tu Landeros MD [facility] CPT-72857 Level 4 Est. Patient 16:08:29 CDT Tu Landeros MD [facility] CPT-75477 Level 3 Est. Patient 16:04:19 CDT Tu Landeros MD [facility] CPT-97780 Level 3 Est. Patient 11:22:30 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 Tu Landeros MD [facility] CPT-75645 Level 4 Est. Patient 16:24:02 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 Tu Landeros MD [facility] CPT-84451 Level 3 Est. Patient 17:21:23 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 Tu Landeros MD [facility] Procedures Code Procedure Name Date Entry Date Standard Description CPT-00611 Shoulder, right, comp min 2V - XRAY USE ONLY 13:50:22 CDT CPT-G0009 Administration of Pneumococcal Vaccine 15:08:26 CDT CPT-94738 Prevnar 13 Intramuscular Suspension 15:08:26 CDT 10/08 CPT-G0439 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 CPT-66699 CBC - LAB USE ONLY 11:14:19 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 CPT-28154 Venipuncture Draw Fee 11:14:18 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 CPT-71082 First Vx - Ix admin for Medicare patients 16:46:52 CDT CPT-84300 Fluzone Preservative Free Intramuscular Suspension 16:46 :51 CDT CPT-75294 CBC - LAB USE ONLY 17:14:46 CDT CPT-91822 HGBA1C - LAB USE ONLY 17:14:46 CDT CPT-90754 Venipuncture Draw Fee 17:14:46 CDT CPT-G0438 Initial Annual Wellness Exam 14:13:04 CDT CPT-82472 Breathing Tx 10:06:54 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 CPT-24825 Postop F/U Visit 10:02:45 CDT CPT-LR Lesion Removal 09:02:56 CDT CPT-JTINJ Asp/Joint Injection 15:51:27 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 CPT-OV Office Visit 15:52:02 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 CPT-OV Office Visit 15:45:11 CDT CPT-000 Give Zostavax 14:09:06 CDT CPT-59695 Administration single or combination vaccine inc oral 15 :19:04 CDT CPT-03714 Zoster Vaccine (Zostavax) 15:19:04 CDT CPT-67809 Administration single or combination vaccine inc oral 20 :51:03 CDT CPT-85086 Influenza split virus > age 3 20:51:03 CDT CPT-77618 No Charge Offi Visit 14:52:03 CDT CPT-OV Office Visit 14:57:43 CDT CPT-OV Office Visit 15:22:32 CDT CPT-60199 Administration single or combination vaccine inc oral 11 :33:15 CDT CPT-00602 Influenza split virus > age 3 11:33:15 CDT
--- OUTSIDE RECORDS SUMMARY | 2018-04-25 13:01 | XMS REPORT | Clinical Summary ---
Author Author Admin, SACHI Organization [employer] Address Unknown Phone Unavailable Allergies, Adverse Reactions, Alerts Allergy Name Reaction Description Start Date Severity Status Provider DANIELLE migraine h/a Critical Active Luisa COOPEREIN migraine h/a Moderate No Longer Active Tu Landeros MD TRICOR rash, trouble breathing Critical Active Tu Landeros MD SULINDAC Critical Active Tu Landeros MD DOXYCYCLINE Critical Active Tu Lanedros MD KEFLEX Critical Active Tu Landeros MD [...] not further specified 369.20 Active Ambika Markie MRB ENGINEER Moderate or severe vision impairment, both [...] hours if needed for cough/congestion ALBUTEROL SULFATE 03333635219 No Longer Active Ambika Aden APRN Active ZITHROMAX 250 MG TAB 2 po today, then 1 po q days 2-5 AZITHROMYCIN 30402000280 No Longer Active Mrianda Suresh APRN Active METFORMIN HCL 1000 MG TABS 1 tablet by mouth twice daily METFORMIN HCL 06061487538 Active Tu Landeros MD Active FLONASE 50 MCG/ACT SUSP 1 spray each nostril twice daily until bottle empty FLUTICASONE PROPIONATE 79344289452 No Longer Active Tu Landeros MD Active COLACE 100 MG CAP 1 po BID PRN Constipation DOCUSATE SODIUM 92897439815 Active Tu Landeros MD Active SIMVASTATIN 40 MG TABS 0.5 tab daily at bedtime SIMVASTATIN 54254772273 Active Tu Landeros MD Active TRUERESULT BLOOD GLUCOSE W/DEVICE KIT test blood sugar twice daily dx 250.00 BLOOD GLUCOSE MONITORING SUPPL 03296852599 No Longer Active Tu Landeros MD Active TRUEDRAW LANCING DEVICE MISC Test twice a day dx 250.0 LANCET DEVICES 76981587977 No Longer Active Tu Landeros MD Active PREDNISONE 20 MG TAB 2 tablets once daily for 2 days, then 1 tablet once daily for 2 days PREDNISONE 79488544085 No Longer Active Tu Landeros MD Active DICLOFENAC SODIUM 50 MG TBEC 1 tablet by mouth three times a day as needed DICLOFENAC SODIUM 27231320726 No Longer Active Fab Morales DO Active TRUEDRAW LANCING DEVICE MISC test blood sugar twice daily dx: 250.00 LANCET DEVICES 46625728723 Active Tu Landeros MD Active TRUETEST TEST INVITR STRP test blood sugar twice daily. DX 250.0 GLUCOSE BLOOD 99389454369 Active Tu Landeros MD Active EMBRACE BLOOD GLUCOSE TEST STRP test blood sugar twice daily DX 250.0 2014 GLUCOSE BLOOD 42047959960 No Longer Active Tu Landeros MD Active TRUETEST TEST STRP test blood sugar three times daily dx: 250.00 GLUCOSE BLOOD 99580810126 No Longer Active Suzebianca VOGEL Active TRUERESULT BLOOD GLUCOSE W/DEVICE KIT use to test blood sugar tid dx: 250.00 BLOOD GLUCOSE MONITORING SUPPL 48923614997 No Longer Active Suze Corey RMA Active ALIGN 4 MG CAPS 1 tid PROBIOTIC PRODUCT 66837717877 No Longer Active Shaun Sy MD Active CIPRO 500 MG TABS 1 bid x 14 days start 09-28-13 CIPROFLOXACIN HCL 56576174596 No Longer Active Shaun Sy MD Active TRAMADOL HCL 50 MG TABS 1-2 tablets every 6 hours as needed for pain TRAMADOL HCL 03381283526 Active Tu Landeros MD Active HYDROCODONE-ACETAMINOPHEN 5-325 MG TABS 1 tab by mouth every 6 hours as needed for pain HYDROCODONE-ACETAMINOPHEN 34811328113 No Longer Active Tu Landeros MD Active OMEPRAZOLE 20 MG CPDR 1 po q a.m. OMEPRAZOLE 88801373622 Active Tu Landeros MD Active GABAPENTIN 100 MG CAPS 1 po bid GABAPENTIN 78782047225 No Longer Active Tu Landeros MD Active B-12 100 MCG TABS Take one by mouth daily CYANOCOBALAMIN 28776489175 No Longer Active Tu Landeros MD Active GABAPENTIN 100 MG CAPS by mouth twice a day GABAPENTIN 78695220383 Active Tiffanie Doyle Active BACTRIM DS 800-160 MG TABS 1 bid x 14 day start 8-14 SULFAMETHOXAZOLE-TRIMETHOPRIM 20731083893 No Longer Active Tu Landeros MD Active CARVEDILOL 12.5 MG TABS 1 po BID CARVEDILOL 32510186119 Active Tu Landeros MD Active SUPER B COMPLEX/VITAMIN C TABS 1 qd B COMPLEX-C 05590392598 Active JASPREET Perez Active TRILIPIX 135 MG CPDR 1 q hs CHOLINE FENOFIBRATE 39115487871 Active Tu Landeros MD Active FENOFIBRATE 145 MG TABS 1 po qd FENOFIBRATE 37504102924 No Longer Active JASPREET Perez Active OMEPRAZOLE 20 MG TBEC 1 PO 30 MIN BEFORE 1ST MEAL OMEPRAZOLE 09693940281 No Longer Active JASPREET Perez Active SIMVASTATIN 40 MG TABS Take one by mouth daily SIMVASTATIN 36481181764 No Longer Active JASPREET Perez Active VENLAFAXINE HCL 37.5 MG TABS 1 bid VENLAFAXINE HCL 52050310419 Active Tu Landeros MD Active VENLAFAXINE HCL 75 MG TABS 1 po BID VENLAFAXINE HCL 76699921239 No Longer Active JASPREET Perez Active CIPRO 500 MG TAB 1 tablet by mouth twice daily CIPROFLOXACIN HCL 56670837956 No Longer Active Tu Landeros MD Active VENLAFAXINE HCL 37.5 MG TABS 1 po BID VENLAFAXINE HCL 10674235051 No Longer Active Suze Corey RMA Active LAMISIL 250 MG TAB 1 po qd TERBINAFINE HCL 19558211864 No Longer Active Tu Landeros MD Active LORTAB 5 5-500 MG TABS 1/2 to 1 tablet by mouth every 4 hours as needed for pain HYDROCODONE-ACETAMINOPHEN 71796353476 No Longer Active Tu Landeros MD Active ENALAPRIL MALEATE 20 MG TABS 1.5 po qd ENALAPRIL MALEATE 94400864222 Active Tu Landeros MD Active HYDROCODONE-ACETAMINOPHEN 5-500 MG TABS take one po Q 4-6 hours prn HYDROCODONE-ACETAMINOPHEN 94190821066 No Longer Active Tu Landeros MD Active BACTRIM DS 800-160 MG TABS 1 po BID x 7 days SULFAMETHOXAZOLE-TRIMETHOPRIM 56193168172 No Longer Active Tu Landeros MD Active VENLAFAXINE HCL 75 MG TABS 1 po BID VENLAFAXINE HCL 10442892718 No Longer Active Elvira Cervantes MD PhD Active TRAMADOL HCL 50 MG TABS 1 tablets every 6 hours as needed for pain TRAMADOL HCL 72622917361 No Longer Active Tu Landeros MD Active ACCU-CHEK FASTCLIX LANCETS MISC Use to check bloodsugar three times daily as needed LANCETS 81132839799 No Longer Active Tu Landeros MD Active ACCU-CHEK KEYONA PLUS STRP Use for testing bloodsugars three times daily as needed GLUCOSE BLOOD 42716898985 No Longer Active Tu Landeros MD Active ACCU-CHEK KEYONA PLUS W/DEVICE KIT Use for testing bloodsugars three times daily as needed BLOOD GLUCOSE MONITORING SUPPL 31173401593 No Longer Active Tu Landeros MD Active SPIRONOLACTONE 25 MG TAB 0.5 tablet by mouth daily SPIRONOLACTONE 21762474955 No Longer Active Tu Landeros MD Active ALPRAZOLAM 0.5 MG TABS 1 tab every 6hrs as needed ALPRAZOLAM 90227006706 No Longer Active Tu Landeros MD Active AUGMENTIN 875-125 MG TAB 1 tab by mouth twice daily with food AMOXICILLIN-POT CLAVULANATE 50016401661 No Longer Active Tu Landeros MD Active PREDNISONE 20 MG TAB 2 tabs daily for 3 days, 1 tab daily for 3 days, 1/2 tab daily for 2 days PREDNISONE 77306292554 No Longer Active Tu Landeros MD Active XANAX 0.5 MG TABS 1 tablet every 6 hrs prn ALPRAZOLAM 12185573081 No Longer Active Tu Landeros MD Active PREDNISONE 20 MG TAB 2 tabs daily for 3 days, 1 tab daily for 3 days, 1/2 tab daily for 2 days PREDNISONE 75793406742 No Longer Active Tu Landeros MD Active TRIAMCINOLONE ACETONIDE 0.1 % OINT Apply to affected areas TID for up to 2 weeks TRIAMCINOLONE ACETONIDE 01705860612 No Longer Active Tu Landeros MD Active LORTAB 5 5-500 MG TABS 1/2 to 1 tablet by mouth every 4 hours as needed for pain HYDROCODONE-ACETAMINOPHEN 23389218967 No Longer Active Tu Landeros MD Active MULTIVITAMINS TABS Take one by mouth daily MULTIPLE VITAMIN 69768002857 No Longer Active Tu Landeros MD Active MELATONIN 5 MG TABS Take one by mouth daily MELATONIN 10773520690 No Longer Active Tu Landeros MD Active SOMA 350 MG TAB 1 po q 6 hours prn spasm CARISOPRODOL 95602403307 No Longer Active Tu Landeros MD Active MECLIZINE HCL 25 MG CHEW TAB 1 four times a day as needed for dizziness 08/05 MECLIZINE HCL 64136297548 No Longer Active Fab Morales DO Active ANGEL BREEZE 2 TEST DISK test tid prn GLUCOSE BLOOD 47976069658 No Longer Active Negra Scott RN Active REGLAN 10 MG TAB 1 po TID PRN [place] METOCLOPRAMIDE HCL 51412674140 No Longer Active Tu Landeros MD Active METFORMIN HCL 500 MG TABS 1 PO BID METFORMIN HCL 97557307534 No Longer Active Tu Landeros MD Active AMBIEN 10 MG TAB 1 tab by mouth at bedtime as needed for sleep ZOLPIDEM TARTRATE 10717335554 No Longer Active Tu Landeros MD Active FLUOXETINE HCL 40 MG CAPS 1 po q day FLUOXETINE HCL 90999715450 No Longer Active Myara Terry Active FISH OIL 1000 MG CAPS Take one by mouth daily OMEGA-3 FATTY ACIDS 34391061885 Active Tu Landeros MD Active GLUCOSAMINE 500 MG TABS Take 2 tab po qd GLUCOSAMINE 77281078249 Active Tu Landeros MD Active TRILIPIX 135 MG CPDR 1 po qd CHOLINE FENOFIBRATE 29321507683 No Longer Active Tu Landeros MD Active ASPIRIN 81 MG CHEW TAB 1 tablet by mouth daily ASPIRIN 88460808387 Active Tu Landeros MD Active FUROSEMIDE 40 MG TAB 1 tablet by mouth daily FUROSEMIDE 64082876077 Active Tu Landeros MD Active REQUIP 2 MG TABS Take one tablet at bedtime prn ROPINIROLE HCL 46845389419 Active Tu Landeros MD Active KLOR-CON 10 10 MEQ CR-TABS TAKE 2 TABS DAILY POTASSIUM CHLORIDE 10292437877 Active Tu Landeros MD Active AMBIEN 10 MG TAB 1 tab by mouth at bedtime as needed for sleep AMBIEN 10 MG TAB 571519 ZOLPIDEM TARTRATE Inactive METFORMIN HCL 500 MG TABS 1 PO BID METFORMIN HCL 500 MG TABS 921705 METFORMIN HCL Inactive REGLAN 10 MG TAB 1 po TID PRN Nausea REGLAN 10 MG TAB 957360 METOCLOPRAMIDE HCL Inactive MECLIZINE HCL 25 MG CHEW TAB 1 four times a day as needed for dizziness 08/05 MECLIZINE HCL 25 MG CHEW TAB 380294 MECLIZINE HCL Inactive SOMA 350 MG TAB 1 po q 6 hours prn spasm SOMA 350 MG TAB 524390 CARISOPRODOL Inactive MELATONIN 5 MG TABS Take one by mouth daily MELATONIN 5 MG TABS 507270 MELATONIN Inactive MULTIVITAMINS TABS Take one by mouth daily MULTIVITAMINS TABS MULTIPLE VITAMIN Inactive LORTAB 5 5-500 MG TABS 1/2 to 1 tablet by mouth every 4 hours as needed for pain LORTAB 5 5-500 MG TABS HYDROCODONE- ACETAMINOPHEN Inactive XANAX 0.5 MG TABS 1 tablet every 6 hrs prn XANAX 0.5 MG TABS 429191 ALPRAZOLAM Inactive AUGMENTIN 875-125 MG TAB 1 tab by mouth twice daily with food AUGMENTIN 875-125 MG TAB 463777 AMOXICILLIN-POT CLAVULANATE Inactive ALPRAZOLAM 0.5 MG TABS 1 tab every 6hrs as needed ALPRAZOLAM 0.5 MG TABS 565205 ALPRAZOLAM Inactive SPIRONOLACTONE 25 MG TAB 0.5 tablet by mouth daily SPIRONOLACTONE 25 MG TAB 275955 SPIRONOLACTONE Inactive ACCU-CHEK KEYONA PLUS W/DEVICE KIT Use for testing bloodsugars three times daily as needed ACCU-CHEK KEYONA PLUS W/DEVICE KIT BLOOD GLUCOSE MONITORING SUPPL Inactive ACCU-CHEK KEYONA PLUS STRP Use for testing bloodsugars three times daily as needed ACCU-CHEK KEYONA PLUS STRP GLUCOSE BLOOD Inactive ACCU-CHEK FASTCLIX LANCETS MISC Use to check bloodsugar three times daily as needed ACCU-CHEK FASTCLIX LANCETS MISC 28867246931 LANCETS Inactive TRAMADOL HCL 50 MG TABS 1 tablets every 6 hours as needed for pain TRAMADOL HCL 50 MG TABS 932242 TRAMADOL HCL Inactive VENLAFAXINE HCL 75 MG TABS 1 po BID VENLAFAXINE HCL 75 MG TABS 999846 VENLAFAXINE HCL Inactive HYDROCODONE-ACETAMINOPHEN 5-500 MG TABS take one po Q 4-6 hours prn HYDROCODONE-ACETAMINOPHEN 5-500 MG TABS HYDROCODONE- ACETAMINOPHEN Inactive LORTAB 5 5-500 MG TABS 1/2 to 1 tablet by mouth every 4 hours as needed for pain LORTAB 5 5-500 MG TABS HYDROCODONE- ACETAMINOPHEN Inactive LAMISIL 250 MG TAB 1 po qd LAMISIL 250 MG TAB 641724 TERBINAFINE HCL Inactive VENLAFAXINE HCL 37.5 MG TABS 1 po BID VENLAFAXINE HCL 37.5 MG TABS 832108 VENLAFAXINE HCL Inactive CIPRO 500 MG TAB 1 tablet by mouth twice daily CIPRO 500 MG TAB 338110 CIPROFLOXACIN HCL Inactive VENLAFAXINE HCL 75 MG TABS 1 po BID VENLAFAXINE HCL 75 MG TABS 739119 VENLAFAXINE HCL Inactive SIMVASTATIN 40 MG TABS Take one by mouth daily SIMVASTATIN 40 MG TABS 033638 SIMVASTATIN Inactive OMEPRAZOLE 20 MG TBEC 1 PO 30 MIN BEFORE 1ST MEAL OMEPRAZOLE 20 MG TBEC 702619 OMEPRAZOLE Inactive FENOFIBRATE 145 MG TABS 1 po qd FENOFIBRATE 145 MG TABS 863695 FENOFIBRATE Inactive BACTRIM DS 800-160 MG TABS 1 bid x 14 day start 09-28-13 BACTRIM DS 800-160 MG TABS 427245 SULFAMETHOXAZOLE-TRIMETHOPRIM Inactive B-12 100 MCG TABS Take one by mouth daily B-12 100 MCG TABS CYANOCOBALAMIN Inactive GABAPENTIN 100 MG CAPS 1 po bid GABAPENTIN 100 MG CAPS 818207 GABAPENTIN Inactive HYDROCODONE-ACETAMINOPHEN 5-325 MG TABS 1 tab by mouth every 6 hours as needed for pain HYDROCODONE-ACETAMINOPHEN 5-325 MG TABS 844560 HYDROCODONE-ACETAMINOPHEN Inactive CIPRO 500 MG TABS 1 bid x 14 days start 09-28-13 CIPRO 500 MG TABS 905187 CIPROFLOXACIN HCL Inactive ALIGN 4 MG CAPS [...] as needed DICLOFENAC SODIUM 50 MG TBEC 376659 DICLOFENAC SODIUM Inactive PREDNISONE 20 MG TAB 2 tablets once daily for 2 days, then 1 tablet once daily for 2 days PREDNISONE 20 MG TAB 458048 PREDNISONE Inactive TRUEDRAW LANCING DEVICE MISC Test [...] 2 weeks TRIAMCINOLONE ACETONIDE 0.1 % OINT 5019051 TRIAMCINOLONE ACETONIDE Inactive PREDNISONE 20 MG TAB 2 tabs daily for 3 days, 1 tab daily for 3 days, 1/2 tab daily for 2 days PREDNISONE 20 MG TAB 528241 PREDNISONE Inactive PREDNISONE 20 MG TAB 2 tabs daily for 3 days, 1 tab daily for 3 days, 1/2 tab daily for 2 days PREDNISONE 20 MG TAB 122633 PREDNISONE Inactive BACTRIM DS 800-160 MG TABS 1 po BID x 7 days BACTRIM DS 800-160 MG TABS 543191 SULFAMETHOXAZOLE-TRIMETHOPRIM Inactive ZITHROMAX 250 MG TAB 2 po today, then 1 po q days 2-5 ZITHROMAX 250 MG TAB 8279313 AZITHROMYCIN Inactive Advance Directives Directive Description Start Date DISCUSSED WITH PATIENT -- NO DECISION MADE Immunizations Vaccine Administration Date Value Standard Description Seasonal influenza vaccine, injectable, containing preservative, for > 3 years old (Afluria, FluLaval, Fluzone, Fluvirin, Fluarix, Agriflu(>=18 yo)) Fluzone (>3 yrs.) [[id number]] Influenza, seasonal, injectable influenza immunization (Flu Vax) has been administered 02/22/2012 influenza virus vaccine, unspecified formulation Seasonal influenza vaccine, injectable, containing preservative, for > 3 years old (Afluria, FluLaval, Fluzone, Fluvirin, Fluarix, Agriflu(>=18 yo)) Fluzone (>3 yrs.) [[id number]] Influenza, seasonal, injectable Vital Signs Date Name [...] Report: Basic Metabolic Panel, MICROALBUMIN - Chemistry albumin/creatinine ratio, urine < 30 mg/g mg/g{creat} 0-29 sodium, serum 142 mmol/L 544-747 4918/10/08 potassium, serum 4.5 mmol/L 3.5-5.2 chloride, serum 105 mmol/L 98-107 carbon dioxide, venous blood 28.9 mmol/L 21.0-32.0 blood glucose 142 mg/dL 65-110 calcium, serum 9.1 mg/dL 8.5-10.1 urea nitrogen, blood 17 mg/dL 7-18 creatinine, serum 0.92 mg/dL 0.55-1.30 Lab Report: Basic Metabolic Panel, MICROALBUMIN - Lab microalbumin, urine 10 0-19 Lab Report: CBC - Hematology leukocyte count, [...] 7.4 % 4.3-6.0 sodium, serum 140 mmol/L 697-306 0250/09/07 potassium, serum 4.3 mmol/L 3.5-5.2 chloride, serum 104 mmol/L 98-107 carbon dioxide, venous blood 27.7 mmol/L 21.0-32.0 blood glucose 156 mg/dL 65-110 calcium, serum 9.3 mg/dL 8.5-10.1 urea nitrogen, blood 23 mg/dL - creatinine, serum 1.21 mg/dL 0.55-1.30 hemoglobin A1C, blood, as % of total hemoglobin 7.7 % 4.3-6.0 Lab Report: Lipid Panel, Comp. Metabolic Panel - Chemistry cholesterol, serum 124 mg/dL 832-799 8003/01/12 triglyceride, serum, fasting 135 mg/dL 30-200 HDL cholesterol, serum 41 mg/dL 32-96 LDL cholesterol, serum 56 mg/dL 0-130 sodium, serum 140 mmol/L 853-383 7908/01/12 carbon dioxide, venous blood 27.7 mmol/L 21.0-32.0 potassium, serum 4.5 mmol/L 3.5-5.2 chloride, serum 104 mmol/L 98-107 blood glucose 139 mg/dL 65-110 urea nitrogen, blood 16 mg/dL 7-18 alanine aminotransferase (SGPT), serum 32 U/L 12-78 aspartate aminotransferase (SGOT), serum 25 U/L 15-37 calcium, serum 9.1 mg/dL 8.5-10.1 bilirubin, serum, total 0.50 mg/dL 0.00-1.00 Encounters Code Encounter Date Provider Facility CPT-59591 Level 4 Est. Patient 14:06:04 COMMERCIAL LEASING AGENT Tu Landeros MD [facility] CPT-71857 Level 3 Est. Patient 14:05:18 COMMERCIAL LEASING AGENT Tu Landeros MD [facility] CPT-19454 Level 3 Est. Patient 10:06:54 COMMERCIAL LEASING AGENT Miranda Suresh APRN [facility] CPT-29024 Level 4 Est. Patient 13:50:18 COMMERCIAL LEASING AGENT Tu Landeros MD [facility] CPT-14307 Level 3 Est. Patient 10:30:04 CDT Tu Landeros MD [facility] CPT-68085 Level 4 Est. Patient 11:03:38 CDT Tu Landeros MD [facility] CPT-33956 Level 3 Est. Patient 10:20:44 CDT Fab Morales DO [facility] CPT-83189 Level 4 Est. Patient 14:38:57 CDT Tu Landeros MD [facility] CPT-18711 Level 4 Est. Patient 14:27:39 COMMERCIAL LEASING AGENT Tu Landeros MD [facility] CPT-17278 Level 4 Est. Patient 09:45:25 CDT Tu Landeros MD [facility] CPT-61400 Level 4 Est. Patient 09:05:20 COMMERCIAL LEASING AGENT Tu Landeros MD [facility] CPT-20321 Level 4 Est. Patient 14:09:06 CDT Tu Landeros MD [facility] CPT-09228 Level 3 Est. Patient 13:36:54 CDT Tu Landeros MD [facility] CPT-70781 Level 3 Est. Patient 08:59:14 CDT Tu Landeros MD [facility] CPT-05663 Level 3 Est. Patient 13:48:35 CDT Fab Morales DO [facility] CPT-35728 Level 4 Est. Patient 10:05:48 CDT Tu Landeros MD [facility] CPT-94109 Level 3 Est. Patient 13:38:42 CDT Marek BANKS [facility] CPT-15804 Level 5 Est. Patient 08:08:39 CDT Jerrica Dawsontay FRANCIS [facility] CPT-71514 Level 4 Est. Patient 14:23:38 CDT Tu Landeros MD [facility] CPT-32111 Level 3 Est. Patient 11:44:04 CDT Tu Landeros MD [facility] CPT-63529 Level 3 Est. Patient 11:03:20 COMMERCIAL LEASING AGENT Tu Landeros MD [facility] CPT-72534 Level 3 Est. Patient 11:03:14 COMMERCIAL LEASING AGENT Tu Landeros MD [facility] CPT-87381 Level 3 Est. Patient 12:42:49 CDT Tu Landeros MD [facility] CPT-55328 Level 3 Est. Patient 11:52:06 CDT Tu Landeros MD [facility] CPT-73501 Level 3 Est. Patient 13:58:11 CDT Tu Landeros MD [facility] CPT-64308 Level 3 Est. Patient 17:50:07 CDT Fab Morales DO [facility] CPT-86658 Level 3 Est. Patient 12:06:29 CDT Elvira Cervantes MD PhD [facility] CPT-14191 Level 3 Est. Patient 15:50:32 CDT Tu Landeros MD [facility] CPT-49365 Level 4 Est. Patient 16:08:29 CDT Tu Landeros MD [facility] CPT-93930 Level 3 Est. Patient 16:04:19 CDT Tu Landeros MD [facility] CPT-84163 Level 3 Est. Patient 11:22:30 COMMERCIAL LEASING AGENT Tu Landeros MD [facility] CPT-24710 Level 4 Est. Patient 16:24:02 COMMERCIAL LEASING AGENT Tu Landeros MD [facility] CPT-28636 Level 3 Est. Patient 17:21:23 COMMERCIAL LEASING AGENT Tu Landeros MD [facility] Procedures Code Procedure Name Date Entry Date Standard Description CPT-G0438 Initial Annual Wellness Exam 14:13:04 CDT CPT-17119 Breathing Tx 10:06:54 COMMERCIAL LEASING AGENT CPT-46233 Postop F/U Visit 10:02:45 CDT CPT-LR Lesion Removal 09:02:56 CDT CPT-JTINJ Asp/Joint Injection 15:51:27 COMMERCIAL LEASING AGENT CPT-OV Office Visit 15:52:02 COMMERCIAL LEASING AGENT CPT-OV Office Visit 15:45:11 CDT CPT-000 Give Zostavax 14:09:06 CDT CPT-35703 Administration single or combination vaccine inc oral 15 :19:04 CDT CPT-82999 Zoster Vaccine (Zostavax) 15:19:04 CDT CPT-29822 Administration single or combination vaccine inc oral 20 :51:03 CDT CPT-53072 Influenza split virus > age 3 20:51:03 CDT CPT-02316 No Charge Offi Visit 14:52:03 CDT CPT-OV Office Visit 14:57:43 CDT CPT-OV Office Visit 15:22:32 CDT CPT-95994 Administration single or combination vaccine inc oral 11 :33:15 CDT CPT-56803 Influenza split virus > age 3 11:33:15 CDT
--- OUTSIDE RECORDS SUMMARY | 2018-04-25 13:02 | XMS REPORT | Clinical Summary ---
Author Author Admin, SACHI Organization [employer] Address Unknown Phone Unavailable Allergies, Adverse Reactions, [...] , unspecified Pain in unspecified foot 729.5 Resolved Tu Landeros MD Pain in limb Shoulder pain, right 719.41 Resolved Tu Landeros MD Pain in joint involving shoulder region Great toe pain 729.5 Active Tu Landeros MD Pain in [...] Landeros MD Pain in unspecified foot ICD-729.5 Tessa Landeros MD Shoulder pain, right ICD-719.41 Tessa Landeros MD Medication List Medication Instructions Start Date Stop Date Generic Name NDC Status Provider Patient Instruction DICLOFENAC SODIUM 75 MG ORAL TBEC 1 po BID PRN Pain DICLOFENAC SODIUM 44808002122 Active Tu Landeros MD Active GABAPENTIN 100 MG CAPS 1 po TID GABAPENTIN 00522409008 Active Tu Landeros MD Active DICLOFENAC SODIUM 50 MG ORAL TBEC 1 po BID PRN Pain DICLOFENAC SODIUM 16621616990 No Longer Active Tu Landeros MD Active CYCLOBENZAPRINE HCL 10 MG ORAL TABS 1 po TID PRN Muscle Spasm CYCLOBENZAPRINE HCL 70024996350 No Longer Active Tu Landeros MD Active INVOKANA 100 MG ORAL TABS 1 po qd CANAGLIFLOZIN 18314143644 Active Tu Landeros MD Active GLIPIZIDE 5 MG ORAL TABS 1 po qd GLIPIZIDE 59573970468 No Longer Active Tu Landeros MD Active VENLAFAXINE HCL 75 MG ORAL TABS 1 po BID VENLAFAXINE HCL 46381582835 Active Tu Landeros MD Active GLIMEPIRIDE 1 MG ORAL TABS 1 po qd GLIMEPIRIDE 01820769460 No Longer Active Tu Landeros MD Active TRUE METRIX BLOOD GLUCOSE TEST INVITR STRP Test blood sugar BID Dx: E11.9 GLUCOSE BLOOD 08357244182 Active Tu Landeros MD Active TRUE METRIX AIR GLUCOSE METER W/DEVICE KIT Test blood glucose BID Dx: E11.9 BLOOD GLUCOSE MONITORING SUPPL 87946675641 Active Tu Landeros MD Active TRUETEST TEST INVITR STRP test blood sugar twice daily. DX 250.0 GLUCOSE BLOOD 01047438733 No Longer Active Mirna Stanley LPN Active TRUEDRAW LANCING DEVICE MISC test blood sugar twice daily dx: 250.00 LANCET DEVICES 00873597548 No Longer Active Mirna Stanley LPN Active ENALAPRIL MALEATE 20 MG TABS 2 po qd ENALAPRIL MALEATE 25347763148 Active Lesli Kellogg APRN Active SUPER B COMPLEX/VITAMIN C TABS 1 qd B COMPLEX-C 44446036461 No Longer Active Tu Landeros MD Active ASPIRIN EC 81 MG ORAL TBEC 1 po qd ASPIRIN 70092018094 Active Tu Landeros MD Active GLUCOSAMINE 500 MG TABS 2 po qd GLUCOSAMINE Active Tu Landeros MD Active SIMVASTATIN 40 MG TABS 0.5 po qHS SIMVASTATIN 24923000226 Active Tu Landeros MD Active FISH OIL 1000 MG CAPS 1 po qd OMEGA-3 FATTY ACIDS 58765259532 Active Tu Landeros MD Active METFORMIN HCL 1000 MG TABS 1 po BID METFORMIN HCL 94808695968 Active Tu Landeros MD Active KLOR-CON 10 10 MEQ CR-TABS 2 po qd POTASSIUM CHLORIDE 28268672507 Active Tu Landeros MD Active FUROSEMIDE 40 MG TAB 1 po qd FUROSEMIDE 35038593703 Active Tu Landeros MD Active REQUIP 2 MG ORAL TABS 1 po qHS PRN Restless legs ROPINIROLE HCL 54882738538 Active Tu Landeros MD Active REQUIP 2 MG TABS Take one tablet at bedtime prn ROPINIROLE HCL 74429994820 No Longer Active Tu Landeros MD Active VENTOLIN HFA 108 (90 BASE) MCG/ACT AERS 1-2 puffs every 4 hours if needed for cough/congestion ALBUTEROL SULFATE 22568849119 No Longer Active Ambika Aden APRN Active ZITHROMAX 250 MG TAB 2 po today, then 1 po q days 2-5 AZITHROMYCIN 01628706755 No Longer Active Miranda Suresh APRN Active FLONASE 50 MCG/ACT SUSP 1 spray each nostril twice daily until bottle empty FLUTICASONE PROPIONATE 79074584650 No Longer Active Tu Landeros MD Active COLACE 100 MG CAP 1 po BID PRN Constipation DOCUSATE SODIUM 14914435594 Active Tu Landeros MD Active TRUERESULT BLOOD GLUCOSE W/DEVICE KIT test blood sugar twice daily dx 250.00 BLOOD GLUCOSE MONITORING SUPPL 29614525867 No Longer Active Tu Landeros MD Active TRUEDRAW LANCING DEVICE MISC Test twice a day dx 250.0 LANCET DEVICES 55661336856 No Longer Active Tu Landeros MD Active PREDNISONE 20 MG TAB 2 tablets once daily for 2 days, then 1 tablet once daily for 2 days PREDNISONE 97422820103 No Longer Active Tu Landeros MD Active DICLOFENAC SODIUM 50 MG TBEC 1 tablet by mouth three times a day as needed DICLOFENAC SODIUM 12169312414 No Longer Active Fab Morales DO Active EMBRACE BLOOD GLUCOSE TEST STRP test blood sugar twice daily DX 250.0 2014 GLUCOSE BLOOD 13976114747 No Longer Active Tu Landeros MD Active TRUETEST TEST STRP test blood sugar three times daily dx: 250.00 GLUCOSE BLOOD 65684221187 No Longer Active Suze Nicole RMMahendra Active TRUERESULT BLOOD GLUCOSE W/DEVICE KIT use to test blood sugar tid dx: 250.00 BLOOD GLUCOSE MONITORING SUPPL 95237965726 No Longer Active Suze Corey RMA Active ALIGN 4 MG CAPS 1 tid PROBIOTIC PRODUCT 41179162041 No Longer Active Shaun Sy MD Active CIPRO 500 MG TABS 1 bid x 14 days start 09-28-13 CIPROFLOXACIN HCL 06240026974 No Longer Active Shaun Sy MD Active TRAMADOL HCL 50 MG TABS 1-2 tablets every 6 hours as needed for pain TRAMADOL HCL 66699253361 Active Tu Landeros MD Active HYDROCODONE-ACETAMINOPHEN 5-325 MG TABS 1 tab by mouth every 6 hours as needed for pain HYDROCODONE-ACETAMINOPHEN 64724817990 No Longer Active Tu Landeros MD Active OMEPRAZOLE 20 MG CPDR 1 po q a.m. OMEPRAZOLE 74152372255 Active Fab Morales DO Active GABAPENTIN 100 MG CAPS 1 po bid GABAPENTIN 57241223484 No Longer Active Tu Landeros MD Active B-12 100 MCG TABS Take one by mouth daily CYANOCOBALAMIN 74209253606 No Longer Active Tu Landeros MD Active BACTRIM DS 800-160 MG TABS 1 bid x 14 day start 09-28-13 SULFAMETHOXAZOLE-TRIMETHOPRIM 22065310594 No Longer Active Tu Landeros MD Active CARVEDILOL 12.5 MG TABS 1 po BID CARVEDILOL 26281538651 Active Lesli Kellogg APRN Active TRILIPIX 135 MG CPDR 1 q hs CHOLINE FENOFIBRATE 89281676773 Active Tu Landeros MD Active FENOFIBRATE 145 MG TABS 1 po qd FENOFIBRATE 35045107722 No Longer Active JASPREET Perez Active OMEPRAZOLE 20 MG TBEC 1 PO 30 MIN BEFORE 1ST MEAL OMEPRAZOLE 13892471666 No Longer Active JASPREET Perez Active SIMVASTATIN 40 MG TABS Take one by mouth daily SIMVASTATIN 80453167633 No Longer Active JASPREET Perez Active VENLAFAXINE HCL 75 MG TABS 1 po BID VENLAFAXINE HCL 60842915251 No Longer Active JASPREET Perez Active CIPRO 500 MG TAB 1 tablet by mouth twice daily CIPROFLOXACIN HCL 00031670892 No Longer Active Tu Landeros MD Active VENLAFAXINE HCL 37.5 MG TABS 1 po BID VENLAFAXINE HCL 03863802622 No Longer Active Suzebianca Nicole RMA Active LAMISIL 250 MG TAB 1 po qd TERBINAFINE HCL 97209059656 No Longer Active Tu Landeros MD Active LORTAB 5 5-500 MG TABS 1/2 to 1 tablet by mouth every 4 hours as needed for pain HYDROCODONE-ACETAMINOPHEN 56601475158 No Longer Active Tu Landeros MD Active HYDROCODONE-ACETAMINOPHEN 5-500 MG TABS take one po Q 4-6 hours prn HYDROCODONE-ACETAMINOPHEN 60255694602 No Longer Active Tu Landeros MD Active BACTRIM DS 800-160 MG TABS 1 po BID x 7 days SULFAMETHOXAZOLE-TRIMETHOPRIM 74311475509 No Longer Active Tu Landeros MD Active VENLAFAXINE HCL 75 MG TABS 1 po BID VENLAFAXINE HCL 30117380414 No Longer Active Elvira Cervantes MD PhD Active TRAMADOL HCL 50 MG TABS 1 tablets every 6 hours as needed for pain TRAMADOL HCL 08435020183 No Longer Active Tu Landeros MD Active ACCU-CHEK FASTCLIX LANCETS MISC Use to check bloodsugar three times daily as needed LANCETS 04925461606 No Longer Active Tu Landeros MD Active ACCU-CHEK KEYONA PLUS STRP Use for testing bloodsugars three times daily as needed GLUCOSE BLOOD 47980810297 No Longer Active Tu Landeros MD Active ACCU-CHEK KEYONA PLUS W/DEVICE KIT Use for testing bloodsugars three times daily as needed BLOOD GLUCOSE MONITORING SUPPL 69095254699 No Longer Active Tu Landeros MD Active SPIRONOLACTONE 25 MG TAB 0.5 tablet by mouth daily SPIRONOLACTONE 75035949015 No Longer Active Tu Landeros MD Active ALPRAZOLAM 0.5 MG TABS 1 tab every 6hrs as needed ALPRAZOLAM 03821868576 No Longer Active Tu Landeros MD Active AUGMENTIN 875-125 MG TAB 1 tab by mouth twice daily with food AMOXICILLIN-POT CLAVULANATE 22601444556 No Longer Active Tu Landeros MD Active PREDNISONE 20 MG TAB 2 tabs daily for 3 days, 1 tab daily for 3 days, 1/2 tab daily for 2 days PREDNISONE 07760882592 No Longer Active Tu Landeros MD Active XANAX 0.5 MG TABS 1 tablet every 6 hrs prn ALPRAZOLAM 75154615772 No Longer Active Tu Landeros MD Active PREDNISONE 20 MG TAB 2 tabs daily for 3 days, 1 tab daily for 3 days, 1/2 tab daily for 2 days PREDNISONE 01794407865 No Longer Active Tu Landeros MD Active TRIAMCINOLONE ACETONIDE 0.1 % OINT Apply to affected areas TID for up to 2 weeks TRIAMCINOLONE ACETONIDE 68821263302 No Longer Active Tu Landeros MD Active LORTAB 5 5-500 MG TABS 1/2 to 1 tablet by mouth every 4 hours as needed for pain HYDROCODONE-ACETAMINOPHEN 68662226642 No Longer Active Tu Landeros MD Active MULTIVITAMINS TABS Take one by mouth daily MULTIPLE VITAMIN 50359238464 No Longer Active Tu Landeros MD Active MELATONIN 5 MG TABS Take one by mouth daily MELATONIN 99808656786 No Longer Active Tu Landeros MD Active SOMA 350 MG TAB 1 po q 6 hours prn spasm CARISOPRODOL 79325575575 No Longer Active Tu Landeros MD Active MECLIZINE HCL 25 MG CHEW TAB 1 four times a day as needed for dizziness 08/05 MECLIZINE HCL 88628657942 No Longer Active Fab Morales DO Active ANGEL BREEZE 2 TEST DISK test tid prn GLUCOSE BLOOD 15561694447 No Longer Active Negra Scott RN Active REGLAN 10 MG TAB 1 po TID PRN Nausea METOCLOPRAMIDE HCL 59323589003 No Longer Active Tu Landeros MD Active METFORMIN HCL 500 MG TABS 1 PO BID METFORMIN HCL 99273324772 No Longer Active Tu Landeros MD Active AMBIEN 10 MG TAB 1 tab by mouth at bedtime as needed for sleep ZOLPIDEM TARTRATE 51170030285 No Longer Active Tu Landeros MD Active FLUOXETINE HCL 40 MG CAPS 1 po q day FLUOXETINE HCL 01838118581 No Longer Active Mayra Terry Active TRILIPIX 135 MG CPDR 1 po qd CHOLINE FENOFIBRATE 88792495391 No Longer Active Tu Landeros MD Active AMBIEN 10 MG TAB 1 tab by mouth at bedtime as needed for sleep AMBIEN 10 MG TAB 084029 ZOLPIDEM TARTRATE Inactive METFORMIN HCL 500 MG TABS 1 PO BID METFORMIN HCL 500 MG TABS 568184 METFORMIN HCL Inactive REGLAN 10 MG TAB 1 po TID PRN Nausea REGLAN 10 MG TAB 718728 METOCLOPRAMIDE HCL Inactive MECLIZINE HCL 25 MG CHEW TAB 1 four times a day as needed for dizziness 08/05 MECLIZINE HCL 25 MG CHEW TAB 567337 MECLIZINE HCL Inactive SOMA 350 MG TAB 1 po q 6 hours prn spasm SOMA 350 MG TAB 421708 CARISOPRODOL Inactive MELATONIN 5 MG TABS Take one by mouth daily MELATONIN 5 MG TABS 356087 MELATONIN Inactive MULTIVITAMINS TABS Take one by mouth daily MULTIVITAMINS TABS MULTIPLE VITAMIN Inactive LORTAB 5 5-500 MG TABS 1/2 to 1 tablet by mouth every 4 hours as needed for pain LORTAB 5 5-500 MG TABS 168742 HYDROCODONE- ACETAMINOPHEN Inactive XANAX 0.5 MG TABS 1 tablet every 6 hrs prn XANAX 0.5 MG TABS 073549 ALPRAZOLAM Inactive AUGMENTIN 875-125 MG TAB 1 tab by mouth twice daily with food AUGMENTIN 875-125 MG TAB 226655 AMOXICILLIN-POT CLAVULANATE Inactive ALPRAZOLAM 0.5 MG TABS 1 tab every 6hrs as needed ALPRAZOLAM 0.5 MG TABS 875921 ALPRAZOLAM Inactive SPIRONOLACTONE 25 MG TAB 0.5 tablet by mouth daily SPIRONOLACTONE 25 MG TAB 967046 SPIRONOLACTONE Inactive ACCU-CHEK KEYONA PLUS W/DEVICE KIT Use for testing bloodsugars three times daily as needed ACCU-CHEK KEYONA PLUS W/DEVICE KIT BLOOD GLUCOSE MONITORING SUPPL Inactive ACCU-CHEK KEYONA PLUS STRP Use for testing bloodsugars three times daily as needed ACCU-CHEK KEYONA PLUS STRP GLUCOSE BLOOD Inactive ACCU-CHEK FASTCLIX LANCETS MISC Use to check bloodsugar three times daily as needed ACCU-CHEK FASTCLIX LANCETS MISC 08042294417 LANCETS Inactive TRAMADOL HCL 50 MG TABS 1 tablets every 6 hours as needed for pain TRAMADOL HCL 50 MG TABS 072096 TRAMADOL HCL Inactive VENLAFAXINE HCL 75 MG TABS 1 po BID VENLAFAXINE HCL 75 MG TABS 082314 VENLAFAXINE HCL Inactive HYDROCODONE-ACETAMINOPHEN 5-500 MG TABS take one po Q 4-6 hours prn HYDROCODONE-ACETAMINOPHEN 5-500 MG TABS 979365 HYDROCODONE- ACETAMINOPHEN Inactive LORTAB 5 5-500 MG TABS 1/2 to 1 tablet by mouth every 4 hours as needed for pain LORTAB 5 5-500 MG TABS 797327 HYDROCODONE- ACETAMINOPHEN Inactive LAMISIL 250 MG TAB 1 po qd LAMISIL 250 MG TAB 931194 TERBINAFINE HCL Inactive VENLAFAXINE HCL 37.5 MG TABS 1 po BID VENLAFAXINE HCL 37.5 MG TABS 413921 VENLAFAXINE HCL Inactive CIPRO 500 MG TAB 1 tablet by mouth twice daily CIPRO 500 MG TAB 044061 CIPROFLOXACIN HCL Inactive VENLAFAXINE HCL 75 MG TABS 1 po BID VENLAFAXINE HCL 75 MG TABS 505878 VENLAFAXINE HCL Inactive SIMVASTATIN 40 MG TABS Take one by mouth daily SIMVASTATIN 40 MG TABS 705988 SIMVASTATIN Inactive OMEPRAZOLE 20 MG TBEC 1 PO 30 MIN BEFORE 1ST MEAL OMEPRAZOLE 20 MG TBEC 123365 OMEPRAZOLE Inactive FENOFIBRATE 145 MG TABS 1 po qd FENOFIBRATE 145 MG TABS 314217 FENOFIBRATE Inactive BACTRIM DS 800-160 MG TABS 1 bid x 14 day start 09-28-13 BACTRIM DS 800-160 MG TABS 779525 SULFAMETHOXAZOLE-TRIMETHOPRIM Inactive B-12 100 MCG TABS Take one by mouth daily B-12 100 MCG TABS CYANOCOBALAMIN Inactive GABAPENTIN 100 MG CAPS 1 po bid GABAPENTIN 100 MG CAPS 617369 GABAPENTIN Inactive HYDROCODONE-ACETAMINOPHEN 5-325 MG TABS 1 tab by mouth every 6 hours as needed for pain HYDROCODONE-ACETAMINOPHEN 5-325 MG TABS 193266 HYDROCODONE-ACETAMINOPHEN Inactive CIPRO 500 MG TABS 1 bid x 14 days start 09-28-13 CIPRO 500 MG TABS 674735 CIPROFLOXACIN HCL Inactive ALIGN 4 MG CAPS [...] as needed DICLOFENAC SODIUM 50 MG TBEC 536125 DICLOFENAC SODIUM Inactive PREDNISONE 20 MG TAB 2 tablets once daily for 2 days, then 1 tablet once daily for 2 days PREDNISONE 20 MG TAB 375633 PREDNISONE Inactive TRUEDRAW LANCING DEVICE MISC Test twice a day dx 250.0 TRUEDRAW LANCING DEVICE MISC LANCET DEVICES Inactive TRUERESULT BLOOD GLUCOSE W/DEVICE KIT test blood sugar twice daily dx 250.00 TRUERESULT BLOOD GLUCOSE W/DEVICE KIT BLOOD GLUCOSE MONITORING SUPPL Inactive FLONASE 50 MCG/ACT SUSP 1 spray each nostril twice daily until bottle empty FLONASE 50 MCG/ACT SUSP 4792843 FLUTICASONE PROPIONATE Inactive VENTOLIN HFA 108 (90 BASE) MCG/ACT AERS 1-2 puffs every 4 hours if needed for cough/congestion VENTOLIN HFA 108 (90 BASE) MCG/ACT AERS ALBUTEROL SULFATE Inactive REQUIP 2 MG TABS Take one tablet at bedtime prn REQUIP 2 MG TABS 730073 ROPINIROLE HCL Inactive SUPER B COMPLEX/VITAMIN C TABS 1 qd SUPER B COMPLEX/ VITAMIN C TABS 11303080156 B COMPLEX-C Inactive TRUEDRAW LANCING DEVICE MISC test blood sugar twice daily dx: 250.00 TRUEDRAW LANCING DEVICE MISC LANCET DEVICES Inactive TRUETEST TEST INVITR STRP test blood sugar twice daily. DX 250.0 TRUETEST TEST INVITR STRP GLUCOSE BLOOD Inactive CYCLOBENZAPRINE HCL 10 MG ORAL TABS 1 po TID PRN Muscle Spasm CYCLOBENZAPRINE HCL 10 MG ORAL TABS 260894 CYCLOBENZAPRINE HCL Inactive DICLOFENAC SODIUM 50 MG ORAL TBEC 1 po BID PRN Pain DICLOFENAC SODIUM 50 MG ORAL TBEC 856323 DICLOFENAC SODIUM Inactive TRIAMCINOLONE ACETONIDE 0.1 % OINT Apply to affected areas TID for up to 2 weeks TRIAMCINOLONE ACETONIDE 0.1 % OINT 0308346 TRIAMCINOLONE ACETONIDE Inactive PREDNISONE 20 MG TAB 2 tabs daily for 3 days, 1 tab daily for 3 days, 1/2 tab daily for 2 days PREDNISONE 20 MG TAB 710163 PREDNISONE Inactive PREDNISONE 20 MG TAB 2 tabs daily for 3 days, 1 tab daily for 3 days, 1/2 tab daily for 2 days PREDNISONE 20 MG TAB 308044 PREDNISONE Inactive BACTRIM DS 800-160 MG TABS 1 po BID x 7 days BACTRIM DS 800-160 MG TABS 792799 SULFAMETHOXAZOLE-TRIMETHOPRIM Inactive ZITHROMAX 250 MG TAB 2 po today, then 1 po q days 2-5 ZITHROMAX 250 MG TAB 660450 AZITHROMYCIN Inactive Advance Directives Directive Description Start Date DISCUSSED WITH PATIENT -- NO DECISION MADE Immunizations Vaccine Administration Date Value Standard Description Seasonal influenza vaccine, injectable, containing preservative, for > 3 years old (Afluria, FluLaval, Fluzone, Fluvirin, Fluarix, Agriflu(>=18 yo)) Fluzone (>3 yrs.) [[id number]] Influenza, seasonal, injectable influenza immunization (Flu Vax) has been administered 02/22/2012 influenza virus vaccine, unspecified formulation Seasonal influenza vaccine, injectable, containing preservative, for > 3 years old (Afluria, FluLaval, Fluzone, Fluvirin, Fluarix, Agriflu(>=18 yo)) Fluzone (>3 yrs.) [[id number]] Influenza, seasonal, injectable Vital Signs Date Name Value Unit Range Description blood pressure, diastolic 55 mm[Hg] BP ac [...] temperature weight E&M 310.38 [lb_av] Weight Measured blood pressure, diastolic 67 mm[Hg] BP ac blood pressure, systolic 177 mm[Hg] BP sys height E&M 63 [in_us] Bdy height pulse rate E&M 60 /min Heart rate temperature E&M 98.2 [degF] Body temperature weight E&M 317.2 [lb_av] Weight Measured Diagnostic Results Date Name Value Unit Range Description Lab Report: CBC, HGBA1C - Chemistry hemoglobin [...] Magnesium - Chemistry sodium, serum 143 mmol/L 829-467 2499/01/10 carbon dioxide, venous blood 28.0 mmol/L 21.0-32.0 potassium, serum 4.5 mmol/L 3.5-5.2 chloride, serum 104 mmol/L 98-107 blood glucose 158 mg/dL 65-110 urea nitrogen, blood 23 mg/dL 7-18 creatinine, serum 1.06 mg/dL 0.55-1.30 alanine aminotransferase (SGPT), serum 42 U/L 12-78 aspartate aminotransferase (SGOT), serum 32 U/L 15-37 calcium, serum 9.3 mg/dL 8.5-10.1 bilirubin, serum, total 0.20 mg/dL 0.00-1.00 cholesterol, serum 177 mg/dL 409-951 4355/01/10 triglyceride, serum, fasting 320 mg/dL 30-200 HDL cholesterol, serum 46 mg/dL 32-96 LDL cholesterol, serum 67 mg/dL 0-130 Lab Report: COMPREHENSIVE METABOLIC PANEL, LIPID PANEL, HEMOGLOBIN A1c - Chemistry cholesterol, serum 135 mg/dL 565-104 5359/05/17 HDL cholesterol, serum 41 mg/dL > OR=46 triglyceride, serum, fasting 206 mg/dL <150 LDL cholesterol, serum 53 MG/DL (CALC) mg/dL <130 cholesterol/HDL ratio, serum 3.3 (calc) < OR=5.0 Lab Report: HGBA1C - Chemistry hemoglobin A1C, blood, as % of total hemoglobin 6.5 % 4.3-6.0 Lab Report: MicroAlb Random w/creat/6517 - Urinalysis microalbumin/total urine volume 21 mg/L Units converted. See lab report for original value. microalbumin/creatinine ratio, urine 11 MCG/MG CREAT mg/L <30 Encounters Code Encounter Date Provider Facility CPT-04745 Level 3 Est. Patient 14:20:36 CDT Tu Landeros MD [facility] CPT-78107 Level 4 Est. Patient 14:28:34 CDT Tu Landeros MD [facility] CPT-90533 Level 3 Est. Patient 13:33:09 CDT Tu Landeros MD [facility] CPT-55773 Level 4 Est. Patient 14:29:21 CDT Tu Landeros MD [facility] CPT-98177 Level 4 Est. Patient 09:08:17 MUCK OPERATOR Tu Landeros MD [facility] CPT-49885 Level 4 Est. Patient 14:40:19 CDT Tu Landeros MD [facility] CPT-64837 Level 4 Est. Patient 14:06:04 MUCK OPERATOR Tu Landeros MD [facility] CPT-09318 Level 3 Est. Patient 14:05:18 MUCK OPERATOR Tu Landeros MD [facility] CPT-85167 Level 3 Est. Patient 10:06:54 MUCK OPERATOR Miranda Suresh APRN [facility] CPT-62744 Level 4 Est. Patient 13:50:18 MUCK OPERATOR Tu Landeros MD [facility] CPT-26253 Level 3 Est. Patient 10:30:04 CDT Tu Landeros MD [facility] CPT-57025 Level 4 Est. Patient 11:03:38 CDT Tu Landeros MD [facility] CPT-61015 Level 3 Est. Patient 10:20:44 CDT Fab Morales DO [facility] CPT-15474 Level 4 Est. Patient 14:38:57 CDT Tu Landeros MD [facility] CPT-95550 Level 4 Est. Patient 14:27:39 MUCK OPERATOR Tu Landeros MD [facility] CPT-85750 Level 4 Est. Patient 09:45:25 CDT Tu Landeros MD [facility] CPT-30115 Level 4 Est. Patient 09:05:20 MUCK OPERATOR Tu Landeros MD [facility] CPT-73317 Level 4 Est. Patient 14:09:06 CDT Tu Landeros MD [facility] CPT-42338 Level 3 Est. Patient 13:36:54 CDT Tu Landeros MD [facility] CPT-47834 Level 3 Est. Patient 08:59:14 CDT Tu Landeros MD [facility] CPT-62280 Level 3 Est. Patient 13:48:35 CDT Fab Morales DO [facility] CPT-30740 Level 4 Est. Patient 10:05:48 CDT Tu Landeros MD [facility] CPT-87113 Level 3 Est. Patient 13:38:42 CDT Marek BANKS [facility] CPT-25454 Level 5 Est. Patient 08:08:39 CDT Jerrica FRANCIS [facility] CPT-58853 Level 4 Est. Patient 14:23:38 CDT Tu Landeros MD [facility] CPT-35724 Level 3 Est. Patient 11:44:04 CDT Tu Landeros MD [facility] CPT-65326 Level 3 Est. Patient 11:03:20 MUCK OPERATOR Tu Landeros MD [facility] CPT-19501 Level 3 Est. Patient 11:03:14 MUCK OPERATOR Tu Landeros MD [facility] CPT-94684 Level 3 Est. Patient 12:42:49 CDT Tu Landeros MD [facility] CPT-06972 Level 3 Est. Patient 11:52:06 CDT Tu Landeros MD [facility] CPT-42172 Level 3 Est. Patient 13:58:11 CDT Tu Landeros MD [facility] CPT-98117 Level 3 Est. Patient 17:50:07 CDT Fab Morales DO [facility] CPT-82277 Level 3 Est. Patient 12:06:29 CDT Elvira Cervantes MD, PhD [facility] CPT-86906 Level 3 Est. Patient 15:50:32 CDT Tu Landeros MD [facility] CPT-62791 Level 4 Est. Patient 16:08:29 CDT Tu Landeros MD [facility] CPT-40115 Level 3 Est. Patient 16:04:19 CDT Tu Landeros MD [facility] CPT-47238 Level 3 Est. Patient 11:22:30 MUCK OPERATOR Tu Landeros MD [facility] CPT-05418 Level 4 Est. Patient 16:24:02 MUCK OPERATOR Tu Landeros MD [facility] CPT-39094 Level 3 Est. Patient 17:21:23 MUCK OPERATOR Tu Landeros MD [facility] Procedures Code Procedure Name Date Entry Date Standard Description CPT-79987 Shoulder, right, comp min 2V - XRAY USE ONLY 13:50:22 CDT CPT-G0009 Administration of Pneumococcal Vaccine 15:08:26 CDT CPT-41055 Prevnar 13 Intramuscular Suspension 15:08:26 CDT 10/08 CPT-G0439 [facility] Annual Wellness Exam 14:29:22 CDT CPT-81787 Venipuncture Draw Fee 13:15:35 CDT CPT-24278 Magnesium - LAB USE ONLY 11:14:20 MUCK OPERATOR CPT-30833 Lipid - LAB USE ONLY 11:14:20 MUCK OPERATOR CPT-71669 HGBA1C - LAB USE ONLY 11:14:20 MUCK OPERATOR CPT-98769 CMP - LAB USE ONLY 11:14:19 MUCK OPERATOR CPT-18062 CBC - LAB USE ONLY 11:14:19 MUCK OPERATOR CPT-86498 Venipuncture Draw Fee 11:14:18 MUCK OPERATOR CPT-39574 First Vx - Ix admin for Medicare patients 16:46:52 CDT CPT-02334 Fluzone Preservative Free Intramuscular Suspension 16:46 :51 CDT CPT-64791 CBC - LAB USE ONLY 17:14:46 CDT CPT-06215 HGBA1C - LAB USE ONLY 17:14:46 CDT CPT-51060 Venipuncture Draw Fee 17:14:46 CDT CPT-G0438 Initial Annual Wellness Exam 14:13:04 CDT CPT-28664 Breathing Tx 10:06:54 MUCK OPERATOR CPT-90457 Postop F/U Visit 10:02:45 CDT CPT-LR Lesion Removal 09:02:56 CDT CPT-JTINJ Asp/Joint Injection 15:51:27 MUCK OPERATOR CPT-OV Office Visit 15:52:02 MUCK OPERATOR CPT-OV Office Visit 15:45:11 CDT CPT-000 Give Zostavax 14:09:06 CDT CPT-47292 Administration single or combination vaccine inc oral 15 :19:04 CDT CPT-27899 Zoster Vaccine (Zostavax) 15:19:04 CDT CPT-69190 Administration single or combination vaccine inc oral 20 :51:03 CDT CPT-31856 Influenza split virus > age 3 20:51:03 CDT CPT-38349 No Charge Offi Visit 14:52:03 CDT CPT-OV Office Visit 14:57:43 CDT CPT-OV Office Visit 15:22:32 CDT CPT-11773 Administration single or combination vaccine inc oral 11 :33:15 CDT CPT-22204 Influenza split virus > age 3 11:33:15 CDT
--- OUTSIDE RECORDS SUMMARY | 2018-04-25 13:04 | XMS REPORT | Clinical Summary ---
Author Author Admin, SACHI Organization [place] Address Unknown Phone Unavailable Allergies, Adverse Reactions, [...] Inactive Tu Landeros MD FATIGUE ICD-780.79 Inactive uT Landeros MD 2012 CARPAL TUNNEL SYNDROME ICD-354.0 Inactive Tu Landeros MD ARTHRITIS ICD-716.90 Inactive Tu Landeros MD KNEE PAIN ICD-719.46 Tessa Landeros MD CONTUSION OF UNSPECIFIED SITE ICD-924.9 Inactive Tu Landeros MD PRESSURE ULCER UNSPECIFIED SITE ICD-707.00 Inactive Tu Landeros MD LOCALIZED SUPERFICIAL SWELLING MASS OR LUMP ICD-782.2 Tessa Landeros MD ONYCHOMYCOSIS ICD-110.1 Inactive Tu Landeros [...] MG ORAL TABS 1 po qd GLIPIZIDE 63621448522 Active Tu Landeros MD Active VENLAFAXINE HCL 75 MG ORAL TABS 1 po BID VENLAFAXINE HCL 26433017900 Active Tu Landeros MD Active GLIMEPIRIDE 1 MG ORAL TABS 1 po qd GLIMEPIRIDE 40054771593 No Longer Active Tu Landeros MD Active TRUE METRIX BLOOD GLUCOSE TEST INVITR STRP Test blood sugar BID Dx: E11.9 GLUCOSE BLOOD 22887145044 Active Tu Landeros MD Active TRUE METRIX AIR GLUCOSE METER W/DEVICE KIT Test blood glucose BID Dx: E11.9 BLOOD GLUCOSE MONITORING SUPPL 78626895427 Active Tu Landeros MD Active TRUETEST TEST INVITR STRP test blood sugar twice daily. DX 250.0 GLUCOSE BLOOD 78495001352 No Longer Active Mirna Stanley LPN Active TRUEDRAW LANCING DEVICE MISC test blood sugar twice daily dx: 250.00 LANCET DEVICES 09652934988 No Longer Active Mirna Stanley LPN Active ENALAPRIL MALEATE 20 MG TABS 2 po qd ENALAPRIL MALEATE 68778001615 Active Tu Landeros MD Active SUPER B COMPLEX/VITAMIN C TABS 1 qd B COMPLEX-C 90364081258 No Longer Active Tu Landeros MD Active ASPIRIN EC 81 MG ORAL TBEC 1 po qd ASPIRIN 18649736759 Active Tu Landeros MD Active GLUCOSAMINE 500 MG TABS 2 po qd GLUCOSAMINE Active Tu Landeros MD Active SIMVASTATIN 40 MG TABS 0.5 po qHS SIMVASTATIN 20526849188 Active Tu Landeros MD Active FISH OIL 1000 MG CAPS 1 po qd OMEGA-3 FATTY ACIDS 54006949653 Active Tu Landeros MD Active METFORMIN HCL 1000 MG TABS 1 po BID METFORMIN HCL 27538150928 Active Tu Landeros MD Active KLOR-CON 10 10 MEQ CR-TABS 2 po qd POTASSIUM CHLORIDE 76323977012 Active Tu Landeros MD Active FUROSEMIDE 40 MG TAB 1 po qd FUROSEMIDE 91891962087 Active Tu Landeros MD Active REQUIP 2 MG ORAL TABS 1 po qHS PRN Restless legs ROPINIROLE HCL 44594651484 Active Tu Landeros MD Active GABAPENTIN 100 MG CAPS 1 po BID GABAPENTIN 00000019771 Active Tu Landeros MD Active REQUIP 2 MG TABS Take one tablet at bedtime prn ROPINIROLE HCL 58847378110 No Longer Active Tu Landeros MD Active VENTOLIN HFA 108 (90 BASE) MCG/ACT AERS 1-2 puffs every 4 hours if needed for cough/congestion ALBUTEROL SULFATE 13903810700 No Longer Active Ambika King AMANDA Active ZITHROMAX 250 MG TAB 2 po today, then 1 po q days 2-5 AZITHROMYCIN 15638910193 No Longer Active Miranda Suresh APRN Active FLONASE 50 MCG/ACT SUSP 1 spray each nostril twice daily until bottle empty FLUTICASONE PROPIONATE 01605067680 No Longer Active Tu Landeros MD Active COLACE 100 MG CAP 1 po BID PRN Constipation DOCUSATE SODIUM 58437944020 Active Tu Landeros MD Active TRUERESULT BLOOD GLUCOSE W/DEVICE KIT test blood sugar twice daily dx 250.00 BLOOD GLUCOSE MONITORING SUPPL 58733120352 No Longer Active Tu Landeros MD Active TRUEDRAW LANCING DEVICE MISC Test twice a day dx 250.0 LANCET DEVICES 11723627227 No Longer Active Tu Ladneros MD Active PREDNISONE 20 MG TAB 2 tablets once daily for 2 days, then 1 tablet once daily for 2 days PREDNISONE 52761089795 No Longer Active Tu Landeros MD Active DICLOFENAC SODIUM 50 MG TBEC 1 tablet by mouth three times a day as needed DICLOFENAC SODIUM 85780389240 No Longer Active Fab Morales DO Active EMBRACE BLOOD GLUCOSE TEST STRP test blood sugar twice daily DX 250.0 2014 GLUCOSE BLOOD 73686926532 No Longer Active Tu Landeros MD Active TRUETEST TEST STRP test blood sugar three times daily dx: 250.00 GLUCOSE BLOOD 47651283554 No Longer Active Suze VOGEL Active TRUERESULT BLOOD GLUCOSE W/DEVICE KIT use to test blood sugar tid dx: 250.00 BLOOD GLUCOSE MONITORING SUPPL 52824427765 No Longer Active Suze VOGEL Active ALIGN 4 MG CAPS 1 tid PROBIOTIC PRODUCT 20678701351 No Longer Active Shaun Sy MD Active CIPRO 500 MG TABS 1 bid x 14 days start 09-28-13 CIPROFLOXACIN HCL 19016476047 No Longer Active Shaun Sy MD Active TRAMADOL HCL 50 MG TABS 1-2 tablets every 6 hours as needed for pain TRAMADOL HCL 49751670447 Active Tu Landeros MD Active HYDROCODONE-ACETAMINOPHEN 5-325 MG TABS 1 tab by mouth every 6 hours as needed for pain HYDROCODONE-ACETAMINOPHEN 18878288406 No Longer Active Tu Landeros MD Active OMEPRAZOLE 20 MG CPDR 1 po q a.m. OMEPRAZOLE 26387277773 Active Lesli Kellogg APRN Active GABAPENTIN 100 MG CAPS 1 po bid GABAPENTIN 51019584749 No Longer Active Tu Landeros MD Active B-12 100 MCG TABS Take one by mouth daily CYANOCOBALAMIN 50681635314 No Longer Active Tu Landeros MD Active BACTRIM DS 800-160 MG TABS 1 bid x 14 day start 09-28-13 SULFAMETHOXAZOLE-TRIMETHOPRIM 27958648570 No Longer Active Tu Landeros MD Active CARVEDILOL 12.5 MG TABS 1 po BID CARVEDILOL 82147007873 Active Tu Landeros MD Active TRILIPIX 135 MG CPDR 1 q hs CHOLINE FENOFIBRATE 22322591722 Active Tu Landeros MD Active FENOFIBRATE 145 MG TABS 1 po qd FENOFIBRATE 74655384361 No Longer Active JASPREET Perez Active OMEPRAZOLE 20 MG TBEC 1 PO 30 MIN BEFORE 1ST MEAL OMEPRAZOLE 34992290959 No Longer Active JASPREET Perez Active SIMVASTATIN 40 MG TABS Take one by mouth daily SIMVASTATIN 18868364848 No Longer Active JASPREET Perez Active VENLAFAXINE HCL 75 MG TABS 1 po BID VENLAFAXINE HCL 66411256032 No Longer Active Gustavo JASPREET Green Active CIPRO 500 MG TAB 1 tablet by mouth twice daily CIPROFLOXACIN HCL 30583143051 No Longer Active Tu Landeros MD Active VENLAFAXINE HCL 37.5 MG TABS 1 po BID VENLAFAXINE HCL 28620894295 No Longer Active Suze Nicole RMA Active LAMISIL 250 MG TAB 1 po qd TERBINAFINE HCL 63654010188 No Longer Active Tu Landeros MD Active LORTAB 5 5-500 MG TABS 1/2 to 1 tablet by mouth every 4 hours as needed for pain HYDROCODONE-ACETAMINOPHEN 45153604029 No Longer Active Tu Landeros MD Active HYDROCODONE-ACETAMINOPHEN 5-500 MG TABS take one po Q 4-6 hours prn HYDROCODONE-ACETAMINOPHEN 49348280169 No Longer Active Tu Landeros MD Active BACTRIM DS 800-160 MG TABS 1 po BID x 7 days SULFAMETHOXAZOLE-TRIMETHOPRIM 76834638793 No Longer Active Tu Landeros MD Active VENLAFAXINE HCL 75 MG TABS 1 po BID VENLAFAXINE HCL 72980024455 No Longer Active Elvira Cervantes MD PhD Active TRAMADOL HCL 50 MG TABS 1 tablets every 6 hours as needed for pain TRAMADOL HCL 36714470605 No Longer Active Tu Landeros MD Active ACCU-CHEK FASTCLIX LANCETS MISC Use to check bloodsugar three times daily as needed LANCETS 03480563498 No Longer Active Tu Landeros MD Active ACCU-CHEK KEYONA PLUS STRP Use for testing bloodsugars three times daily as needed GLUCOSE BLOOD 58043154929 No Longer Active Tu Landeros MD Active ACCU-CHEK KEYONA PLUS W/DEVICE KIT Use for testing bloodsugars three times daily as needed BLOOD GLUCOSE MONITORING SUPPL 74192506993 No Longer Active Tu Landeros MD Active SPIRONOLACTONE 25 MG TAB 0.5 tablet by mouth daily SPIRONOLACTONE 33763501483 No Longer Active Tu Landeros MD Active ALPRAZOLAM 0.5 MG TABS 1 tab every 6hrs as needed ALPRAZOLAM 85111597436 No Longer Active Tu Landeros MD Active AUGMENTIN 875-125 MG TAB 1 tab by mouth twice daily with food AMOXICILLIN-POT CLAVULANATE 29820890962 No Longer Active Tu Landeros MD Active PREDNISONE 20 MG TAB 2 tabs daily for 3 days, 1 tab daily for 3 days, 1/2 tab daily for 2 days PREDNISONE 20997614850 No Longer Active Tu Landeros MD Active XANAX 0.5 MG TABS 1 tablet every 6 hrs prn ALPRAZOLAM 35616542748 No Longer Active Tu Landeros MD Active PREDNISONE 20 MG TAB 2 tabs daily for 3 days, 1 tab daily for 3 days, 1/2 tab daily for 2 days PREDNISONE 54504679136 No Longer Active Tu Landeros MD Active TRIAMCINOLONE ACETONIDE 0.1 % OINT Apply to affected areas TID for up to 2 weeks TRIAMCINOLONE ACETONIDE 29599588310 No Longer Active Tu Landeros MD Active LORTAB 5 5-500 MG TABS 1/2 to 1 tablet by mouth every 4 hours as needed for pain HYDROCODONE-ACETAMINOPHEN 87781985865 No Longer Active Tu Landeros MD Active MULTIVITAMINS TABS Take one by mouth daily MULTIPLE VITAMIN 45758553445 No Longer Active Tu Landeros MD Active MELATONIN 5 MG TABS Take one by mouth daily MELATONIN 65665584619 No Longer Active Tu Landeros MD Active SOMA 350 MG TAB 1 po q 6 hours prn spasm CARISOPRODOL 54052153879 No Longer Active Tu Landeros MD Active MECLIZINE HCL 25 MG CHEW TAB 1 four times a day as needed for dizziness 08/05 MECLIZINE HCL 33045446449 No Longer Active Fab Morales DO Active ANGEL BREEZE 2 TEST DISK test tid prn GLUCOSE BLOOD 17431044514 No Longer Active Negra Scott RN Active REGLAN 10 MG TAB 1 po TID PRN [place] METOCLOPRAMIDE HCL 49748969733 No Longer Active Tu Landeros MD Active METFORMIN HCL 500 MG TABS 1 PO BID METFORMIN HCL 58028271452 No Longer Active Tu Landeros MD Active AMBIEN 10 MG TAB 1 tab by mouth at bedtime as needed for sleep ZOLPIDEM TARTRATE 72643090957 No Longer Active Tu Landeros MD Active FLUOXETINE HCL 40 MG CAPS 1 po q day FLUOXETINE HCL 41636970821 No Longer Active Mayra Bluffs Active TRILIPIX 135 MG CPDR 1 po qd CHOLINE FENOFIBRATE 94548898618 No Longer Active Tu Landeros MD Active AMBIEN 10 MG TAB 1 tab by mouth at bedtime as needed for sleep AMBIEN 10 MG TAB 596202 ZOLPIDEM TARTRATE Inactive METFORMIN HCL 500 MG TABS 1 PO BID METFORMIN HCL 500 MG TABS 703060 METFORMIN HCL Inactive REGLAN 10 MG TAB 1 po TID PRN [place] REGLAN 10 MG TAB 779165 METOCLOPRAMIDE HCL Inactive MECLIZINE HCL 25 MG CHEW TAB 1 four times a day as needed for dizziness 08/05 MECLIZINE HCL 25 MG CHEW TAB 959933 MECLIZINE HCL Inactive SOMA 350 MG TAB 1 po q 6 hours prn spasm SOMA 350 MG TAB 634065 CARISOPRODOL Inactive MELATONIN 5 MG TABS Take one by mouth daily MELATONIN 5 MG TABS 576828 MELATONIN Inactive MULTIVITAMINS TABS Take one by mouth daily MULTIVITAMINS TABS MULTIPLE VITAMIN Inactive LORTAB 5 5-500 MG TABS 1/2 to 1 tablet by mouth every 4 hours as needed for pain LORTAB 5 5-500 MG TABS HYDROCODONE- ACETAMINOPHEN Inactive XANAX 0.5 MG TABS 1 tablet every 6 hrs prn XANAX 0.5 MG TABS 526758 ALPRAZOLAM Inactive AUGMENTIN 875-125 MG TAB 1 tab by mouth twice daily with food AUGMENTIN 875-125 MG TAB 690591 AMOXICILLIN-POT CLAVULANATE Inactive ALPRAZOLAM 0.5 MG TABS 1 tab every 6hrs as needed ALPRAZOLAM 0.5 MG TABS 366688 ALPRAZOLAM Inactive SPIRONOLACTONE 25 MG TAB 0.5 tablet by mouth daily SPIRONOLACTONE 25 MG TAB 129461 SPIRONOLACTONE Inactive ACCU-CHEK KEYONA PLUS W/DEVICE KIT Use for testing bloodsugars three times daily as needed ACCU-CHEK KEYONA PLUS W/DEVICE KIT BLOOD GLUCOSE MONITORING SUPPL Inactive ACCU-CHEK KEYONA PLUS STRP Use for testing bloodsugars three times daily as needed ACCU-CHEK KEYONA PLUS STRP GLUCOSE BLOOD Inactive ACCU-CHEK FASTCLIX LANCETS MISC Use to check bloodsugar three times daily as needed ACCU-CHEK FASTCLIX LANCETS MISC 85780333768 LANCETS Inactive TRAMADOL HCL 50 MG TABS 1 tablets every 6 hours as needed for pain TRAMADOL HCL 50 MG TABS 425557 TRAMADOL HCL Inactive VENLAFAXINE HCL 75 MG TABS 1 po BID VENLAFAXINE HCL 75 MG TABS 422583 VENLAFAXINE HCL Inactive HYDROCODONE-ACETAMINOPHEN 5-500 MG TABS take one po Q 4-6 hours prn HYDROCODONE-ACETAMINOPHEN 5-500 MG TABS HYDROCODONE- ACETAMINOPHEN Inactive LORTAB 5 5-500 MG TABS 1/2 to 1 tablet by mouth every 4 hours as needed for pain LORTAB 5 5-500 MG TABS HYDROCODONE- ACETAMINOPHEN Inactive LAMISIL 250 MG TAB 1 po qd LAMISIL 250 MG TAB 650212 TERBINAFINE HCL Inactive VENLAFAXINE HCL 37.5 MG TABS 1 po BID VENLAFAXINE HCL 37.5 MG TABS 191880 VENLAFAXINE HCL Inactive CIPRO 500 MG TAB 1 tablet by mouth twice daily CIPRO 500 MG TAB 613603 CIPROFLOXACIN HCL Inactive VENLAFAXINE HCL 75 MG TABS 1 po BID VENLAFAXINE HCL 75 MG TABS 127246 VENLAFAXINE HCL Inactive SIMVASTATIN 40 MG TABS Take one by mouth daily SIMVASTATIN 40 MG TABS 444425 SIMVASTATIN Inactive OMEPRAZOLE 20 MG TBEC 1 PO 30 MIN BEFORE 1ST MEAL OMEPRAZOLE 20 MG TBEC 702201 OMEPRAZOLE Inactive FENOFIBRATE 145 MG TABS 1 po qd FENOFIBRATE 145 MG TABS 271322 FENOFIBRATE Inactive BACTRIM DS 800-160 MG TABS 1 bid x 14 day start 09-28-13 BACTRIM DS 800-160 MG TABS 658289 SULFAMETHOXAZOLE-TRIMETHOPRIM Inactive B-12 100 MCG TABS Take one by mouth daily B-12 100 MCG TABS CYANOCOBALAMIN Inactive GABAPENTIN 100 MG CAPS 1 po bid GABAPENTIN 100 MG CAPS 224262 GABAPENTIN Inactive HYDROCODONE-ACETAMINOPHEN 5-325 MG TABS 1 tab by mouth every 6 hours as needed for pain HYDROCODONE-ACETAMINOPHEN 5-325 MG TABS 877570 HYDROCODONE-ACETAMINOPHEN Inactive CIPRO 500 MG TABS 1 bid x 14 days start 09-28-13 CIPRO 500 MG TABS 531284 CIPROFLOXACIN HCL Inactive ALIGN 4 MG CAPS [...] as needed DICLOFENAC SODIUM 50 MG TBEC 829504 DICLOFENAC SODIUM Inactive PREDNISONE 20 MG TAB 2 tablets once daily for 2 days, then 1 tablet once daily for 2 days PREDNISONE 20 MG TAB 862054 PREDNISONE Inactive TRUEDRAW LANCING DEVICE MISC Test twice a day dx 250.0 TRUEDRAW LANCING DEVICE MISC LANCET DEVICES Inactive TRUERESULT BLOOD GLUCOSE W/DEVICE KIT test blood sugar twice daily dx 250.00 TRUERESULT BLOOD GLUCOSE W/DEVICE KIT BLOOD GLUCOSE MONITORING SUPPL Inactive FLONASE 50 MCG/ACT SUSP 1 spray each nostril twice daily until bottle empty FLONASE 50 MCG/ACT SUSP 4247894 FLUTICASONE PROPIONATE Inactive VENTOLIN HFA 108 (90 BASE) MCG/ACT AERS 1-2 puffs every 4 hours if needed for cough/congestion VENTOLIN HFA 108 (90 BASE) MCG/ACT AERS ALBUTEROL SULFATE Inactive REQUIP 2 MG TABS Take one tablet at bedtime prn REQUIP 2 MG TABS 772997 ROPINIROLE HCL Inactive SUPER B COMPLEX/VITAMIN C TABS 1 qd SUPER B COMPLEX/ VITAMIN C TABS 69475532033 B COMPLEX-C Inactive TRUEDRAW LANCING DEVICE MISC test blood sugar twice daily dx: 250.00 TRUEDRAW LANCING DEVICE MISC LANCET DEVICES Inactive TRUETEST TEST INVITR STRP test blood sugar twice daily. DX 250.0 TRUETEST TEST INVITR STRP GLUCOSE BLOOD Inactive TRIAMCINOLONE ACETONIDE 0.1 % OINT Apply to affected areas TID for up to 2 weeks TRIAMCINOLONE ACETONIDE 0.1 % OINT 5718244 TRIAMCINOLONE ACETONIDE Inactive PREDNISONE 20 MG TAB 2 tabs daily for 3 days, 1 tab daily for 3 days, 1/2 tab daily for 2 days PREDNISONE 20 MG TAB 854107 PREDNISONE Inactive PREDNISONE 20 MG TAB 2 tabs daily for 3 days, 1 tab daily for 3 days, 1/2 tab daily for 2 days PREDNISONE 20 MG TAB 784394 PREDNISONE Inactive BACTRIM DS 800-160 MG TABS 1 po BID x 7 days BACTRIM DS 800-160 MG TABS 004849 SULFAMETHOXAZOLE-TRIMETHOPRIM Inactive ZITHROMAX 250 MG TAB 2 po today, then 1 po q days 2-5 ZITHROMAX 250 MG TAB 9927356 AZITHROMYCIN Inactive Advance Directives Directive Description Start Date DISCUSSED WITH PATIENT -- NO DECISION MADE Immunizations Vaccine Administration Date Value Standard Description Seasonal influenza vaccine, injectable, containing preservative, for > 3 years old (Afluria, FluLaval, Fluzone, Fluvirin, Fluarix, Agriflu(>=18 yo)) Fluzone (>3 yrs.) [[id number]] Influenza, seasonal, injectable influenza immunization (Flu Vax) has been administered 02/22/2012 influenza virus vaccine, unspecified formulation Seasonal influenza vaccine, injectable, containing preservative, for > 3 years old (Afluria, FluLaval, Fluzone, Fluvirin, Fluarix, Agriflu(>=18 yo)) Fluzone (>3 yrs.) [[id number]] Influenza, seasonal, injectable Vital Signs Date Name [...] Magnesium - Chemistry sodium, serum 143 mmol/L 244-162 7600/01/10 carbon dioxide, venous blood 28.0 mmol/L 21.0-32.0 potassium, serum 4.5 mmol/L 3.5-5.2 chloride, serum 104 mmol/L 98-107 blood glucose 158 mg/dL 65-110 urea nitrogen, blood 23 mg/dL 7-18 creatinine, serum 1.06 mg/dL 0.55-1.30 alanine aminotransferase (SGPT), serum 42 U/L 12-78 aspartate aminotransferase (SGOT), serum 32 U/L 15-37 calcium, serum 9.3 mg/dL 8.5-10.1 bilirubin, serum, total 0.20 mg/dL 0.00-1.00 cholesterol, serum 177 mg/dL 328-094 1222/01/10 triglyceride, serum, fasting 320 mg/dL 30-200 HDL cholesterol, serum 46 mg/dL 32-96 LDL cholesterol, serum 67 mg/dL 0-130 Lab Report: COMPREHENSIVE METABOLIC PANEL, LIPID PANEL, HEMOGLOBIN A1c - Chemistry cholesterol, serum 135 mg/dL 347-770 2886/05/17 HDL cholesterol, serum 41 mg/dL > OR=46 triglyceride, serum, fasting 206 mg/dL <150 LDL cholesterol, serum 53 MG/DL (CALC) mg/dL <130 cholesterol/HDL ratio, serum 3.3 (calc) < OR=5.0 Lab Report: HGBA1C - Chemistry hemoglobin A1C, blood, as % of total hemoglobin 7.4 % 4.3-6.0 sodium, serum 140 mmol/L 764-290 4852/09/07 potassium, serum 4.3 mmol/L 3.5-5.2 chloride, serum [...] <30 Encounters Code Encounter Date Provider Facility CPT-03110 Level 4 Est. Patient 14:29:21 CDT Tu Landeros MD [facility] CPT-17499 Level 4 Est. Patient 09:08:17 TECHNICAL PLANNER Tu Landeros MD [facility] CPT-01354 Level 4 Est. Patient 14:40:19 CDT Tu Landeros MD [facility] CPT-20000 Level 4 Est. Patient 14:06:04 TECHNICAL PLANNER Tu Landeros MD [facility] CPT-55533 Level 3 Est. Patient 14:05:18 TECHNICAL PLANNER Tu Landeros MD [facility] CPT-86321 Level 3 Est. Patient 10:06:54 TECHNICAL PLANNER Miranda Suresh APRN [facility] CPT-35141 Level 4 Est. Patient 13:50:18 TECHNICAL PLANNER Tu Landeros MD [facility] CPT-11089 Level 3 Est. Patient 10:30:04 CDT Tu Landeros MD [facility] CPT-06402 Level 4 Est. Patient 11:03:38 CDT Tu Landeros MD [facility] CPT-15375 Level 3 Est. Patient 10:20:44 CDT Fab Morales DO [facility] CPT-65219 Level 4 Est. Patient 14:38:57 CDT Tu Landeros MD [facility] CPT-55391 Level 4 Est. Patient 14:27:39 TECHNICAL PLANNER Tu Landeros MD [facility] CPT-67713 Level 4 Est. Patient 09:45:25 CDT Tu Landeros MD [facility] CPT-01686 Level 4 Est. Patient 09:05:20 TECHNICAL PLANNER Tu Landeros MD [facility] CPT-13092 Level 4 Est. Patient 14:09:06 CDT Tu Landeros MD [facility] CPT-81932 Level 3 Est. Patient 13:36:54 CDT Tu Landeros MD [facility] CPT-05313 Level 3 Est. Patient 08:59:14 CDT Tu Landeros MD [facility] CPT-71268 Level 3 Est. Patient 13:48:35 CDT Fab Morales DO [facility] CPT-41729 Level 4 Est. Patient 10:05:48 CDT Tu Landeros MD [facility] CPT-02057 Level 3 Est. Patient 13:38:42 CDT Marek BANKS [facility] CPT-76060 Level 5 Est. Patient 08:08:39 CDT Maxjanelle Kellie FRANCIS [facility] CPT-75982 Level 4 Est. Patient 14:23:38 CDT Tu Landeros MD [facility] CPT-26652 Level 3 Est. Patient 11:44:04 CDT Tu Landeros MD [facility] CPT-40512 Level 3 Est. Patient 11:03:20 TECHNICAL PLANNER Tu Landeros MD [facility] CPT-33217 Level 3 Est. Patient 11:03:14 TECHNICAL PLANNER Tu Landeros MD [facility] CPT-07831 Level 3 Est. Patient 12:42:49 CDT Tu Landeros MD [facility] CPT-20979 Level 3 Est. Patient 11:52:06 CDT Tu Landeros MD [facility] CPT-31600 Level 3 Est. Patient 13:58:11 CDT Tu Landeros MD [facility] CPT-85522 Level 3 Est. Patient 17:50:07 CDT Fab Morales DO [facility] CPT-18791 Level 3 Est. Patient 12:06:29 CDT Elvira Cervantes MD, PhD [facility] CPT-49244 Level 3 Est. Patient 15:50:32 CDT Tu Landeros MD [facility] CPT-31127 Level 4 Est. Patient 16:08:29 CDT Tu Landeros MD [facility] CPT-00569 Level 3 Est. Patient 16:04:19 CDT Tu Landeros MD [facility] CPT-21415 Level 3 Est. Patient 11:22:30 TECHNICAL PLANNER Tu Landeros MD [facility] CPT-62037 Level 4 Est. Patient 16:24:02 TECHNICAL PLANNER Tu Landeros MD [facility] CPT-22771 Level 3 Est. Patient 17:21:23 TECHNICAL PLANNER Tu Landeros MD [facility] Procedures Code Procedure Name Date Entry Date Standard Description CPT-G0009 Administration of Pneumococcal Vaccine 15:08:26 CDT CPT-83467 Prevnar 13 Intramuscular Suspension 15:08:26 CDT 10/08 CPT-G0439 [facility] Annual Wellness Exam 14:29:22 CDT CPT-44465 Venipuncture Draw Fee 13:15:35 CDT CPT-18632 Magnesium - LAB USE ONLY 11:14:20 TECHNICAL PLANNER CPT-37488 Lipid - LAB USE ONLY 11:14:20 TECHNICAL PLANNER CPT-65659 HGBA1C - LAB USE ONLY 11:14:20 TECHNICAL PLANNER CPT-09678 CMP - LAB USE ONLY 11:14:19 TECHNICAL PLANNER CPT-48669 CBC - LAB USE ONLY 11:14:19 TECHNICAL PLANNER CPT-55143 Venipuncture Draw Fee 11:14:18 TECHNICAL PLANNER CPT-55823 First Vx - Ix admin for Medicare patients 16:46:52 CDT CPT-45723 Fluzone Preservative Free Intramuscular Suspension 16:46 :51 CDT CPT-75567 CBC - LAB USE ONLY 17:14:46 CDT CPT-72630 HGBA1C - LAB USE ONLY 17:14:46 CDT CPT-07735 Venipuncture Draw Fee 17:14:46 CDT CPT-G0438 Initial Annual Wellness Exam 14:13:04 CDT CPT-63226 Breathing Tx 10:06:54 TECHNICAL PLANNER CPT-42702 Postop F/U Visit 10:02:45 CDT CPT-LR Lesion Removal 09:02:56 CDT CPT-JTINJ Asp/Joint Injection 15:51:27 TECHNICAL PLANNER CPT-OV Office Visit 15:52:02 TECHNICAL PLANNER CPT-OV Office Visit 15:45:11 CDT CPT-000 Give Zostavax 14:09:06 CDT CPT-53513 Administration single or combination vaccine inc oral 15 :19:04 CDT CPT-27581 Zoster Vaccine (Zostavax) 15:19:04 CDT CPT-59682 Administration single or combination vaccine inc oral 20 :51:03 CDT CPT-95393 Influenza split virus > age 3 20:51:03 CDT CPT-78500 No Charge Offi Visit 14:52:03 CDT CPT-OV Office Visit 14:57:43 CDT CPT-OV Office Visit 15:22:32 CDT CPT-71698 Administration single or combination vaccine inc oral 11 :33:15 CDT CPT-97667 Influenza split virus > age 3 11:33:15 CDT
--- OUTSIDE RECORDS SUMMARY | 2018-04-25 13:05 | XMS REPORT | Clinical Summary ---
Author Author Admin, SACHI Organization [facility] Address Unknown Phone Unavailable Allergies, Adverse Reactions, [...] classified HYPERLIPIDEMIA, OTHER UNSPECIFIED 272.4 Inactive Tu Ladneros MD Other and unspecified hyperlipidemia Hyperlipidemia 272.4 [...] Active Tu Landeros MD Pain in limb Shoulder pain, right 719.41 Active Tu Landeros MD Pain in joint involving shoulder region POSTMENOPAUSAL BLEEDING ICD-627.1 Inactive Elvira Cervantes MD [...] further specified ICD- 369.20 Tessa Landeros MD CONTUSION OF UNSPECIFIED SITE ICD-924.9 Tessa Landeros MD Medication List Medication Instructions Start Date Stop Date Generic Name NDC Status Provider Patient Instruction CYCLOBENZAPRINE HCL 10 MG ORAL TABS 1 po TID PRN Muscle Spasm CYCLOBENZAPRINE HCL 41888131862 Active Tu Landeros MD Active DICLOFENAC SODIUM 50 MG ORAL TBEC 1 po BID PRN Pain DICLOFENAC SODIUM 29575879616 Delores Landeros MD Active INVOKANA 100 MG ORAL TABS 1 po qd CANAGLIFLOZIN 97940832268 Active Tu Landeros MD Active GLIPIZIDE 5 MG ORAL TABS 1 po qd GLIPIZIDE 92326092257 No Longer Active Tu Landeros MD Active VENLAFAXINE HCL 75 MG ORAL TABS 1 po BID VENLAFAXINE HCL 37041377852 Active Tu Landeros MD Active GLIMEPIRIDE 1 MG ORAL TABS 1 po qd GLIMEPIRIDE 50174432028 No Longer Active Tu Landeros MD Active TRUE METRIX BLOOD GLUCOSE TEST INVITR STRP Test blood sugar BID Dx: E11.9 GLUCOSE BLOOD 22946447352 Active Tu Landeros MD Active TRUE METRIX AIR GLUCOSE METER W/DEVICE KIT Test blood glucose BID Dx: E11.9 BLOOD GLUCOSE MONITORING SUPPL 95970524266 Active Tu Landeros MD Active TRUETEST TEST INVITR STRP test blood sugar twice daily. DX 250.0 GLUCOSE BLOOD 94722239035 No Longer Active Mirna Stanley LPN Active TRUEDRAW LANCING DEVICE MISC test blood sugar twice daily dx: 250.00 LANCET DEVICES 23697976074 No Longer Active Mirna Stanley LPN Active ENALAPRIL MALEATE 20 MG TABS 2 po qd ENALAPRIL MALEATE 85059122733 Active Lesli Kellogg APRN Active SUPER B COMPLEX/VITAMIN C TABS 1 qd B COMPLEX-C 81807149339 No Longer Active Tu Landeros MD Active ASPIRIN EC 81 MG ORAL TBEC 1 po qd ASPIRIN 16067951743 Active Tu Landeros MD Active GLUCOSAMINE 500 MG TABS 2 po qd GLUCOSAMINE Active Tu Landeros MD Active SIMVASTATIN 40 MG TABS 0.5 po qHS SIMVASTATIN 35500665444 Active Tu Landeros MD Active FISH OIL 1000 MG CAPS 1 po qd OMEGA-3 FATTY ACIDS 36229284024 Active Tu Landeros MD Active METFORMIN HCL 1000 MG TABS 1 po BID METFORMIN HCL 04034989755 Active Tu Landeros MD Active KLOR-CON 10 10 MEQ CR-TABS 2 po qd POTASSIUM CHLORIDE 97736185723 Active Tu Landeros MD Active FUROSEMIDE 40 MG TAB 1 po qd FUROSEMIDE 25988051030 Active Tu Landeros MD Active REQUIP 2 MG ORAL TABS 1 po qHS PRN Restless legs ROPINIROLE HCL 84928592857 Active Tu Landeros MD Active GABAPENTIN 100 MG CAPS 1 po BID GABAPENTIN 48423861707 Active Tu Landeros MD Active REQUIP 2 MG TABS Take one tablet at bedtime prn ROPINIROLE HCL 44432602664 No Longer Active Tu Landeros MD Active VENTOLIN HFA 108 (90 BASE) MCG/ACT AERS 1-2 puffs every 4 hours if needed for cough/congestion ALBUTEROL SULFATE 38278942178 No Longer Active Ambika Aden APRN Active ZITHROMAX 250 MG TAB 2 po today, then 1 po q days 2-5 AZITHROMYCIN 12054933143 No Longer Active Miranda Suresh APRN Active FLONASE 50 MCG/ACT SUSP 1 spray each nostril twice daily until bottle empty FLUTICASONE PROPIONATE 68990716815 No Longer Active Tu Landeros MD Active COLACE 100 MG CAP 1 po BID PRN Constipation DOCUSATE SODIUM 62529055150 Active Tu Landeros MD Active TRUERESULT BLOOD GLUCOSE W/DEVICE KIT test blood sugar twice daily dx 250.00 BLOOD GLUCOSE MONITORING SUPPL 17953511146 No Longer Active Tu Landeros MD Active TRUEDRAW LANCING DEVICE MISC Test twice a day dx 250.0 LANCET DEVICES 20857025591 No Longer Active Tu Landeros MD Active PREDNISONE 20 MG TAB 2 tablets once daily for 2 days, then 1 tablet once daily for 2 days PREDNISONE 57217463347 No Longer Active Tu Landeros MD Active DICLOFENAC SODIUM 50 MG TBEC 1 tablet by mouth three times a day as needed DICLOFENAC SODIUM 11091025199 No Longer Active Fab Morales DO Active EMBRACE BLOOD GLUCOSE TEST STRP test blood sugar twice daily DX 250.0 2014 GLUCOSE BLOOD 22926402023 No Longer Active Tu Landeros MD Active TRUETEST TEST STRP test blood sugar three times daily dx: 250.00 GLUCOSE BLOOD 32886569116 No Longer Active Suze Nicole RMA Active TRUERESULT BLOOD GLUCOSE W/DEVICE KIT use to test blood sugar tid dx: 250.00 BLOOD GLUCOSE MONITORING SUPPL 78141943292 No Longer Active Suze Corey RMA Active ALIGN 4 MG CAPS 1 tid PROBIOTIC PRODUCT 05794099094 No Longer Active Shaun Sy MD Active CIPRO 500 MG TABS 1 bid x 14 days start 09-28-13 CIPROFLOXACIN HCL 22050886886 No Longer Active Shaun Sy MD Active TRAMADOL HCL 50 MG TABS 1-2 tablets every 6 hours as needed for pain TRAMADOL HCL 06493674546 Active Tu Landeros MD Active HYDROCODONE-ACETAMINOPHEN 5-325 MG TABS 1 tab by mouth every 6 hours as needed for pain HYDROCODONE-ACETAMINOPHEN 80671116560 No Longer Active Tu Landeros MD Active OMEPRAZOLE 20 MG CPDR 1 po q a.m. OMEPRAZOLE 48621557396 Active Fab Morales DO Active GABAPENTIN 100 MG CAPS 1 po bid GABAPENTIN 70169924187 No Longer Active Tu Landeros MD Active B-12 100 MCG TABS Take one by mouth daily CYANOCOBALAMIN 58601373165 No Longer Active Tu Landeros MD Active BACTRIM DS 800-160 MG TABS 1 bid x 14 day start 09-28-13 SULFAMETHOXAZOLE-TRIMETHOPRIM 62323088946 No Longer Active Tu Landeros MD Active CARVEDILOL 12.5 MG TABS 1 po BID CARVEDILOL 93249273594 Active Lesli Kellogg APRN Active TRILIPIX 135 MG CPDR 1 q hs CHOLINE FENOFIBRATE 30307774293 Active Tu Landeros MD Active FENOFIBRATE 145 MG TABS 1 po qd FENOFIBRATE 41800375661 No Longer Active JASPREET Perez Active OMEPRAZOLE 20 MG TBEC 1 PO 30 MIN BEFORE 1ST MEAL OMEPRAZOLE 80457808097 No Longer Active JASPREET Perez Active SIMVASTATIN 40 MG TABS Take one by mouth daily SIMVASTATIN 86033609442 No Longer Active JASPREET Perez Active VENLAFAXINE HCL 75 MG TABS 1 po BID VENLAFAXINE HCL 72997465913 No Longer Active JASPREET Perez Active CIPRO 500 MG TAB 1 tablet by mouth twice daily CIPROFLOXACIN HCL 05799646344 No Longer Active Tu Landeros MD Active VENLAFAXINE HCL 37.5 MG TABS 1 po BID VENLAFAXINE HCL 06838962971 No Longer Active Suzebianca Nicole [facility] Active LAMISIL 250 MG TAB 1 po qd TERBINAFINE HCL 99880584749 No Longer Active Tu Landeros MD Active LORTAB 5 5-500 MG TABS 1/2 to 1 tablet by mouth every 4 hours as needed for pain HYDROCODONE-ACETAMINOPHEN 53413943959 No Longer Active Tu Landeros MD Active HYDROCODONE-ACETAMINOPHEN 5-500 MG TABS take one po Q 4-6 hours prn HYDROCODONE-ACETAMINOPHEN 93829393782 No Longer Active Tu Landeros MD Active BACTRIM DS 800-160 MG TABS 1 po BID x 7 days SULFAMETHOXAZOLE-TRIMETHOPRIM 66152087778 No Longer Active Tu Landeros MD Active VENLAFAXINE HCL 75 MG TABS 1 po BID VENLAFAXINE HCL 05142692644 No Longer Active Elvira Cervantes MD PhD Active TRAMADOL HCL 50 MG TABS 1 tablets every 6 hours as needed for pain TRAMADOL HCL 65353938030 No Longer Active Tu Landeros MD Active ACCU-CHEK FASTCLIX LANCETS MISC Use to check bloodsugar three times daily as needed LANCETS 47696988976 No Longer Active Tu Landeros MD Active ACCU-CHEK KEYONA PLUS STRP Use for testing bloodsugars three times daily as needed GLUCOSE BLOOD 46100017096 No Longer Active Tu Landeros MD Active ACCU-CHEK KEYONA PLUS W/DEVICE KIT Use for testing bloodsugars three times daily as needed BLOOD GLUCOSE MONITORING SUPPL 57397955712 No Longer Active Tu Landeros MD Active SPIRONOLACTONE 25 MG TAB 0.5 tablet by mouth daily SPIRONOLACTONE 39558886640 No Longer Active Tu Landeros MD Active ALPRAZOLAM 0.5 MG TABS 1 tab every 6hrs as needed ALPRAZOLAM 39966489729 No Longer Active Tu Landeros MD Active AUGMENTIN 875-125 MG TAB 1 tab by mouth twice daily with food AMOXICILLIN-POT CLAVULANATE 29800205210 No Longer Active Tu Landeros MD Active PREDNISONE 20 MG TAB 2 tabs daily for 3 days, 1 tab daily for 3 days, 1/2 tab daily for 2 days PREDNISONE 90828884444 No Longer Active Tu Landeros MD Active XANAX 0.5 MG TABS 1 tablet every 6 hrs prn ALPRAZOLAM 06910875006 No Longer Active Tu Landeros MD Active PREDNISONE 20 MG TAB 2 tabs daily for 3 days, 1 tab daily for 3 days, 1/2 tab daily for 2 days PREDNISONE 41943578424 No Longer Active Tu Landeros MD Active TRIAMCINOLONE ACETONIDE 0.1 % OINT Apply to affected areas TID for up to 2 weeks TRIAMCINOLONE ACETONIDE 35849552260 No Longer Active Tu Landeros MD Active LORTAB 5 5-500 MG TABS 1/2 to 1 tablet by mouth every 4 hours as needed for pain HYDROCODONE-ACETAMINOPHEN 99087834514 No Longer Active Tu Landeros MD Active MULTIVITAMINS TABS Take one by mouth daily MULTIPLE VITAMIN 46481289139 No Longer Active Tu Landeros MD Active MELATONIN 5 MG TABS Take one by mouth daily MELATONIN 42018736574 No Longer Active Tu Landeros MD Active SOMA 350 MG TAB 1 po q 6 hours prn spasm CARISOPRODOL 56267828991 No Longer Active Tu Landeros MD Active MECLIZINE HCL 25 MG CHEW TAB 1 four times a day as needed for dizziness 08/05 MECLIZINE HCL 26375314167 No Longer Active Fab Morales DO Active ANGEL BREEZE 2 TEST DISK test tid prn GLUCOSE BLOOD 61382760249 No Longer Active Negra Scott RN Active REGLAN 10 MG TAB 1 po TID PRN Nausea METOCLOPRAMIDE HCL 03892799952 No Longer Active Tu Landeros MD Active METFORMIN HCL 500 MG TABS 1 PO BID METFORMIN HCL 18413255288 No Longer Active Tu Landeros MD Active AMBIEN 10 MG TAB 1 tab by mouth at bedtime as needed for sleep ZOLPIDEM TARTRATE 60747129446 No Longer Active Tu Landeros MD Active FLUOXETINE HCL 40 MG CAPS 1 po q day FLUOXETINE HCL 32713105273 No Longer Active Mayra Seymour Active TRILIPIX 135 MG CPDR 1 po qd CHOLINE FENOFIBRATE 90724242398 No Longer Active Tu Landeros MD Active AMBIEN 10 MG TAB 1 tab by mouth at bedtime as needed for sleep AMBIEN 10 MG TAB 327556 ZOLPIDEM TARTRATE Inactive METFORMIN HCL 500 MG TABS 1 PO BID METFORMIN HCL 500 MG TABS 885880 METFORMIN HCL Inactive REGLAN 10 MG TAB 1 po TID PRN Nausea REGLAN 10 MG TAB 727272 METOCLOPRAMIDE HCL Inactive MECLIZINE HCL 25 MG CHEW TAB 1 four times a day as needed for dizziness 08/05 MECLIZINE HCL 25 MG CHEW TAB 315841 MECLIZINE HCL Inactive SOMA 350 MG TAB 1 po q 6 hours prn spasm SOMA 350 MG TAB 666631 CARISOPRODOL Inactive MELATONIN 5 MG TABS Take one by mouth daily MELATONIN 5 MG TABS 257958 MELATONIN Inactive MULTIVITAMINS TABS Take one by mouth daily MULTIVITAMINS TABS MULTIPLE VITAMIN Inactive LORTAB 5 5-500 MG TABS 1/2 to 1 tablet by mouth every 4 hours as needed for pain LORTAB 5 5-500 MG TABS HYDROCODONE- ACETAMINOPHEN Inactive XANAX 0.5 MG TABS 1 tablet every 6 hrs prn XANAX 0.5 MG TABS 430118 ALPRAZOLAM Inactive AUGMENTIN 875-125 MG TAB 1 tab by mouth twice daily with food AUGMENTIN 875-125 MG TAB 957225 AMOXICILLIN-POT CLAVULANATE Inactive ALPRAZOLAM 0.5 MG TABS 1 tab every 6hrs as needed ALPRAZOLAM 0.5 MG TABS 889458 ALPRAZOLAM Inactive SPIRONOLACTONE 25 MG TAB 0.5 tablet by mouth daily SPIRONOLACTONE 25 MG TAB 614279 SPIRONOLACTONE Inactive ACCU-CHEK KEYONA PLUS W/DEVICE KIT Use for testing bloodsugars three times daily as needed ACCU-CHEK KEYONA PLUS W/DEVICE KIT BLOOD GLUCOSE MONITORING SUPPL Inactive ACCU-CHEK KEYONA PLUS STRP Use for testing bloodsugars three times daily as needed ACCU-CHEK KEYONA PLUS STRP GLUCOSE BLOOD Inactive ACCU-CHEK FASTCLIX LANCETS MISC Use to check bloodsugar three times daily as needed ACCU-CHEK FASTCLIX LANCETS MISC 03046060158 [facility] Inactive TRAMADOL HCL 50 MG TABS 1 tablets every 6 hours as needed for pain TRAMADOL HCL 50 MG TABS 873014 TRAMADOL HCL Inactive VENLAFAXINE HCL 75 MG TABS 1 po BID VENLAFAXINE HCL 75 MG TABS 608984 VENLAFAXINE HCL Inactive HYDROCODONE-ACETAMINOPHEN 5-500 MG TABS take one po Q 4-6 hours prn HYDROCODONE-ACETAMINOPHEN 5-500 MG TABS HYDROCODONE- ACETAMINOPHEN Inactive LORTAB 5 5-500 MG TABS 1/2 to 1 tablet by mouth every 4 hours as needed for pain LORTAB 5 5-500 MG TABS HYDROCODONE- ACETAMINOPHEN Inactive LAMISIL 250 MG TAB 1 po qd LAMISIL 250 MG TAB 540428 TERBINAFINE HCL Inactive VENLAFAXINE HCL 37.5 MG TABS 1 po BID VENLAFAXINE HCL 37.5 MG TABS 953416 VENLAFAXINE HCL Inactive CIPRO 500 MG TAB 1 tablet by mouth twice daily CIPRO 500 MG TAB 017615 CIPROFLOXACIN HCL Inactive VENLAFAXINE HCL 75 MG TABS 1 po BID VENLAFAXINE HCL 75 MG TABS 410636 VENLAFAXINE HCL Inactive SIMVASTATIN 40 MG TABS Take one by mouth daily SIMVASTATIN 40 MG TABS 087779 SIMVASTATIN Inactive OMEPRAZOLE 20 MG TBEC 1 PO 30 MIN BEFORE 1ST MEAL OMEPRAZOLE 20 MG TBEC 644396 OMEPRAZOLE Inactive FENOFIBRATE 145 MG TABS 1 po qd FENOFIBRATE 145 MG TABS 968607 FENOFIBRATE Inactive BACTRIM DS 800-160 MG TABS 1 bid x 14 day start 09-28-13 BACTRIM DS 800-160 MG TABS 520187 SULFAMETHOXAZOLE-TRIMETHOPRIM Inactive B-12 100 MCG TABS Take one by mouth daily B-12 100 MCG TABS CYANOCOBALAMIN Inactive GABAPENTIN 100 MG CAPS 1 po bid GABAPENTIN 100 MG CAPS 111950 GABAPENTIN Inactive HYDROCODONE-ACETAMINOPHEN 5-325 MG TABS 1 tab by mouth every 6 hours as needed for pain HYDROCODONE-ACETAMINOPHEN 5-325 MG TABS 681628 HYDROCODONE-ACETAMINOPHEN Inactive CIPRO 500 MG TABS 1 bid x 14 days start 09-28-13 CIPRO 500 MG TABS 974411 CIPROFLOXACIN HCL Inactive ALIGN 4 MG CAPS [...] as needed DICLOFENAC SODIUM 50 MG TBEC 644952 DICLOFENAC SODIUM Inactive PREDNISONE 20 MG TAB 2 tablets once daily for 2 days, then 1 tablet once daily for 2 days PREDNISONE 20 MG TAB 966894 PREDNISONE Inactive TRUEDRAW LANCING DEVICE MISC Test twice a day dx 250.0 TRUEDRAW LANCING DEVICE MISC LANCET DEVICES Inactive TRUERESULT BLOOD GLUCOSE W/DEVICE KIT test blood sugar twice daily dx 250.00 TRUERESULT BLOOD GLUCOSE W/DEVICE KIT BLOOD GLUCOSE MONITORING SUPPL Inactive FLONASE 50 MCG/ACT SUSP 1 spray each nostril twice daily until bottle empty FLONASE 50 MCG/ACT SUSP 4169508 FLUTICASONE PROPIONATE Inactive VENTOLIN HFA 108 (90 BASE) MCG/ACT AERS 1-2 puffs every 4 hours if needed for cough/congestion VENTOLIN HFA 108 (90 BASE) MCG/ACT AERS ALBUTEROL SULFATE Inactive REQUIP 2 MG TABS Take one tablet at bedtime prn REQUIP 2 MG TABS 140466 ROPINIROLE HCL Inactive SUPER B COMPLEX/VITAMIN C TABS 1 qd SUPER B COMPLEX/ VITAMIN C TABS 68070366368 B COMPLEX-C Inactive TRUEDRAW LANCING DEVICE MISC test blood sugar twice daily dx: 250.00 TRUEDRAW LANCING DEVICE MISC LANCET DEVICES Inactive TRUETEST TEST INVITR STRP test blood sugar twice daily. DX 250.0 TRUETEST TEST INVITR STRP GLUCOSE BLOOD Inactive TRIAMCINOLONE ACETONIDE 0.1 % OINT Apply to affected areas TID for up to 2 weeks TRIAMCINOLONE ACETONIDE 0.1 % OINT 3000238 TRIAMCINOLONE ACETONIDE Inactive PREDNISONE 20 MG TAB 2 tabs daily for 3 days, 1 tab daily for 3 days, 1/2 tab daily for 2 days PREDNISONE 20 MG TAB 748432 PREDNISONE Inactive PREDNISONE 20 MG TAB 2 tabs daily for 3 days, 1 tab daily for 3 days, 1/2 tab daily for 2 days PREDNISONE 20 MG TAB 846193 PREDNISONE Inactive BACTRIM DS 800-160 MG TABS 1 po BID x 7 days BACTRIM DS 800-160 MG TABS 256287 SULFAMETHOXAZOLE-TRIMETHOPRIM Inactive ZITHROMAX 250 MG TAB 2 po today, then 1 po q days 2-5 ZITHROMAX 250 MG TAB 0367197 AZITHROMYCIN Inactive Advance Directives Directive Description Start Date DISCUSSED WITH PATIENT -- NO DECISION MADE Immunizations Vaccine Administration Date Value Standard Description Seasonal influenza vaccine, injectable, containing preservative, for > 3 years old (Afluria, FluLaval, Fluzone, Fluvirin, Fluarix, Agriflu(>=18 yo)) Fluzone (>3 yrs.) [[id number]] Influenza, seasonal, injectable influenza immunization (Flu Vax) has been administered 02/22/2012 influenza virus vaccine, unspecified formulation Seasonal influenza vaccine, injectable, containing preservative, for > 3 years old (Afluria, FluLaval, Fluzone, Fluvirin, Fluarix, Agriflu(>=18 yo)) Fluzone (>3 yrs.) [[id number]] Influenza, seasonal, injectable Vital Signs Date Name Value Unit Range Description blood pressure, diastolic 64 mm[Hg] BP ac [...] temperature weight E&M 317.2 [lb_av] Weight Measured blood pressure, diastolic, supine 82 mm[Hg] BP ac blood pressure, systolic, supine E&M 152 mm[Hg] BP sys pulse rate E&M 60 /min Heart rate temperature E&M 97.1 [degF] Body temperature weight E&M 315.50 [lb_av] Weight Measured Diagnostic Results Date [...] Magnesium - Chemistry sodium, serum 143 mmol/L 521-582 2878/01/10 carbon dioxide, venous blood 28.0 mmol/L 21.0-32.0 potassium, serum 4.5 mmol/L 3.5-5.2 chloride, serum 104 mmol/L 98-107 blood glucose 158 mg/dL 65-110 urea nitrogen, blood 23 mg/dL 7-18 creatinine, serum 1.06 mg/dL 0.55-1.30 alanine aminotransferase (SGPT), serum 42 U/L 12-78 aspartate aminotransferase (SGOT), serum 32 U/L 15-37 calcium, serum 9.3 mg/dL 8.5-10.1 bilirubin, serum, total 0.20 mg/dL 0.00-1.00 cholesterol, serum 177 mg/dL 860-955 9228/01/10 triglyceride, serum, fasting 320 mg/dL 30-200 HDL cholesterol, serum 46 mg/dL 32-96 LDL cholesterol, serum 67 mg/dL 0-130 Lab Report: COMPREHENSIVE METABOLIC PANEL, LIPID PANEL, HEMOGLOBIN A1c - Chemistry cholesterol, serum 135 mg/dL 422-569 3466/05/17 HDL cholesterol, serum 41 mg/dL > OR=46 [...] <30 Encounters Code Encounter Date Provider Facility CPT-74194 Level 3 Est. Patient 13:33:09 CDT Tu Landeros MD [facility] CPT-41521 Level 4 Est. Patient 14:29:21 CDT Tu Landeros MD [facility] CPT-25226 Level 4 Est. Patient 09:08:17 MANAGER TRANSPLANT Tu Landeros MD [facility] CPT-46409 Level 4 Est. Patient 14:40:19 CDT Tu Landeros MD [facility] CPT-83683 Level 4 Est. Patient 14:06:04 MANAGER TRANSPLANT Tu Landeros MD [facility] CPT-06579 Level 3 Est. Patient 14:05:18 MANAGER TRANSPLANT Tu Landeros MD [facility] CPT-80502 Level 3 Est. Patient 10:06:54 MANAGER TRANSPLANT Miranda Suresh APRN [facility] CPT-66603 Level 4 Est. Patient 13:50:18 MANAGER TRANSPLANT Tu Landeros MD [facility] CPT-24439 Level 3 Est. Patient 10:30:04 CDT Tu Landeros MD [facility] CPT-45215 Level 4 Est. Patient 11:03:38 CDT Tu Landeros MD [facility] CPT-42522 Level 3 Est. Patient 10:20:44 CDT Fab Morales DO [facility] CPT-96116 Level 4 Est. Patient 14:38:57 CDT Tu Landeros MD [facility] CPT-25011 Level 4 Est. Patient 14:27:39 MANAGER TRANSPLANT Tu Landeros MD [facility] CPT-85549 Level 4 Est. Patient 09:45:25 CDT Tu Landeros MD [facility] CPT-37007 Level 4 Est. Patient 09:05:20 MANAGER TRANSPLANT Tu Landeros MD [facility] CPT-08419 Level 4 Est. Patient 14:09:06 CDT Tu Landeros MD [facility] CPT-97016 Level 3 Est. Patient 13:36:54 CDT Tu Landeros MD [facility] CPT-66595 Level 3 Est. Patient 08:59:14 CDT Tu Landeros MD [facility] CPT-76248 Level 3 Est. Patient 13:48:35 CDT Fab Morales DO [facility] CPT-75467 Level 4 Est. Patient 10:05:48 CDT Tu Landeros MD [facility] CPT-90615 Level 3 Est. Patient 13:38:42 CDT Marek BANKS [facility] CPT-70749 Level 5 Est. Patient 08:08:39 CDT Jerrica FRANCIS [facility] CPT-67618 Level 4 Est. Patient 14:23:38 CDT Tu Landeros MD [facility] CPT-70254 Level 3 Est. Patient 11:44:04 CDT Tu Landeros MD [facility] CPT-05200 Level 3 Est. Patient 11:03:20 MANAGER TRANSPLANT Tu Landeros MD [facility] CPT-00358 Level 3 Est. Patient 11:03:14 MANAGER TRANSPLANT Tu Landeros MD [facility] CPT-06233 Level 3 Est. Patient 12:42:49 CDT Tu Landeros MD [facility] CPT-24754 Level 3 Est. Patient 11:52:06 CDT Tu Landeros MD [facility] CPT-44011 Level 3 Est. Patient 13:58:11 CDT Tu Landeros MD [facility] CPT-02936 Level 3 Est. Patient 17:50:07 CDT Fab Morales DO [facility] CPT-75541 Level 3 Est. Patient 12:06:29 CDT Elvira Cervantes MD PhD [facility] CPT-88647 Level 3 Est. Patient 15:50:32 CDT Tu Landeros MD [facility] CPT-83568 Level 4 Est. Patient 16:08:29 CDT Tu Landeros MD [facility] CPT-39487 Level 3 Est. Patient 16:04:19 CDT Tu Landeros MD [facility] CPT-08165 Level 3 Est. Patient 11:22:30 MANAGER TRANSPLANT Tu Landeros MD [facility] CPT-01890 Level 4 Est. Patient 16:24:02 MANAGER TRANSPLANT Tu Landeros MD [facility] CPT-53898 Level 3 Est. Patient 17:21:23 MANAGER TRANSPLANT Tu Landeros MD [facility] Procedures Code Procedure Name Date Entry Date Standard Description CPT-34274 Shoulder, right, comp min 2V - XRAY USE ONLY 13:50:22 CDT CPT-G0009 Administration of Pneumococcal Vaccine 15:08:26 CDT CPT-32282 Prevnar 13 Intramuscular Suspension 15:08:26 CDT 10/08 CPT-G0439 Subsequent Annual Wellness Exam 14:29:22 CDT CPT-12712 Venipuncture Draw Fee 13:15:35 CDT CPT-67535 Magnesium - LAB USE ONLY 11:14:20 MANAGER TRANSPLANT CPT-89476 Lipid - LAB USE ONLY 11:14:20 MANAGER TRANSPLANT CPT-66144 HGBA1C - LAB USE ONLY 11:14:20 MANAGER TRANSPLANT CPT-09463 CMP - LAB USE ONLY 11:14:19 MANAGER TRANSPLANT CPT-49991 CBC - LAB USE ONLY 11:14:19 MANAGER TRANSPLANT CPT-07431 Venipuncture Draw Fee 11:14:18 MANAGER TRANSPLANT CPT-61694 First Vx - Ix admin for Medicare patients 16:46:52 CDT CPT-07656 Fluzone Preservative Free Intramuscular Suspension 16:46 :51 CDT CPT-90405 CBC - LAB USE ONLY 17:14:46 CDT CPT-71913 HGBA1C - LAB USE ONLY 17:14:46 CDT CPT-12790 Venipuncture Draw Fee 17:14:46 CDT CPT-G0438 Initial Annual Wellness Exam 14:13:04 CDT CPT-75428 Breathing Tx 10:06:54 MANAGER TRANSPLANT CPT-07480 Postop F/U Visit 10:02:45 CDT CPT-LR Lesion Removal 09:02:56 CDT CPT-JTINJ Asp/Joint Injection 15:51:27 MANAGER TRANSPLANT CPT-OV Office Visit 15:52:02 MANAGER TRANSPLANT CPT-OV Office Visit 15:45:11 CDT CPT-000 Give Zostavax 14:09:06 CDT CPT-82987 Administration single or combination vaccine inc oral 15 :19:04 CDT CPT-53840 Zoster Vaccine (Zostavax) 15:19:04 CDT CPT-04447 Administration single or combination vaccine inc oral 20 :51:03 CDT CPT-07598 Influenza split virus > age 3 20:51:03 CDT CPT-10790 No Charge Offi Visit 14:52:03 CDT CPT-OV Office Visit 14:57:43 CDT CPT-OV Office Visit 15:22:32 CDT CPT-24662 Administration single or combination vaccine inc oral 11 :33:15 CDT CPT-94804 Influenza split virus > age 3 11:33:15 CDT
--- OUTSIDE RECORDS SUMMARY | 2018-04-25 13:07 | XMS REPORT | Clinical Summary ---
Author Author Admin, SACHI Organization [employer] Address Unknown Phone Unavailable Allergies, Adverse Reactions, [...] further specified ICD- 369.20 Tessa Landeros MD Medication List Medication Instructions Start Date Stop Date Generic Name NDC Status Provider Patient Instruction VENLAFAXINE HCL 75 MG ORAL TABS 1 po BID VENLAFAXINE HCL 56279605103 Active Tu Landeros MD Active GLIMEPIRIDE 1 MG ORAL TABS 1 po qd GLIMEPIRIDE 32938711714 Active Tu Landeros MD Active TRUE METRIX BLOOD GLUCOSE TEST INVITR STRP Test blood sugar BID Dx: E11.9 GLUCOSE BLOOD 45355851981 Delores Landeros MD Active TRUE METRIX AIR GLUCOSE METER W/DEVICE KIT Test blood glucose BID Dx: E11.9 BLOOD GLUCOSE MONITORING SUPPL 49108669789 Active Tu Landeros MD Active TRUETEST TEST INVITR STRP test blood sugar twice daily. DX 250.0 GLUCOSE BLOOD 57335367348 No Longer Active Mirna Stanley LPN Active TRUEDRAW LANCING DEVICE MISC test blood sugar twice daily dx: 250.00 LANCET DEVICES 21595477553 No Longer Active Mirna Stanley LPN Active ENALAPRIL MALEATE 20 MG TABS 2 po qd ENALAPRIL MALEATE 58892854078 Active Tu Landeros MD Active SUPER B COMPLEX/VITAMIN C TABS 1 qd B COMPLEX-C 72675273487 No Longer Active Tu Landeros MD Active ASPIRIN EC 81 MG ORAL TBEC 1 po qd ASPIRIN 95352900006 Active Tu Landeros MD Active GLUCOSAMINE 500 MG TABS 2 po qd GLUCOSAMINE Active Tu Landeros MD Active SIMVASTATIN 40 MG TABS 0.5 po qHS SIMVASTATIN 67828532741 Active Tu Landeros MD Active FISH OIL 1000 MG CAPS 1 po qd OMEGA-3 FATTY ACIDS 53908524512 Active Tu Landeros MD Active METFORMIN HCL 1000 MG TABS 1 po BID METFORMIN HCL 72795540195 Active Tu Landeros MD Active KLOR-CON 10 10 MEQ CR-TABS 2 po qd POTASSIUM CHLORIDE 48239429989 Active Tu Landeros MD Active FUROSEMIDE 40 MG TAB 1 po qd FUROSEMIDE 44963431993 Active Tu Landeros MD Active REQUIP 2 MG ORAL TABS 1 po qHS PRN Restless legs ROPINIROLE HCL 69276113060 Active Tu Landeros MD Active GABAPENTIN 100 MG CAPS 1 po BID GABAPENTIN 91981047512 Active Tu Landeros MD Active REQUIP 2 MG TABS Take one tablet at bedtime prn ROPINIROLE HCL 85304934442 No Longer Active Tu Landeros MD Active VENTOLIN HFA 108 (90 BASE) MCG/ACT AERS 1-2 puffs every 4 hours if needed for cough/congestion ALBUTEROL SULFATE 98863857088 No Longer Active Ambika Aden APRN Active ZITHROMAX 250 MG TAB 2 po today, then 1 po q days 2-5 AZITHROMYCIN 11479206147 No Longer Active Miranda Suresh APRN Active FLONASE 50 MCG/ACT SUSP 1 spray each nostril twice daily until bottle empty FLUTICASONE PROPIONATE 54471741892 No Longer Active Tu Landeros MD Active COLACE 100 MG CAP 1 po BID PRN Constipation DOCUSATE SODIUM 68250228000 Active Tu Landeros MD Active TRUERESULT BLOOD GLUCOSE W/DEVICE KIT test blood sugar twice daily dx 250.00 BLOOD GLUCOSE MONITORING SUPPL 16062450632 No Longer Active Tu Landeros MD Active TRUEDRAW LANCING DEVICE MISC Test twice a day dx 250.0 LANCET DEVICES 56369462491 No Longer Active Tu Landeros MD Active PREDNISONE 20 MG TAB 2 tablets once daily for 2 days, then 1 tablet once daily for 2 days PREDNISONE 60951132696 No Longer Active Tu Landeros MD Active DICLOFENAC SODIUM 50 MG TBEC 1 tablet by mouth three times a day as needed DICLOFENAC SODIUM 42410877173 No Longer Active Fab Morales DO Active EMBRACE BLOOD GLUCOSE TEST STRP test blood sugar twice daily DX 250.0 2014 GLUCOSE BLOOD 84894088079 No Longer Active Tu Landeros MD Active TRUETEST TEST STRP test blood sugar three times daily dx: 250.00 GLUCOSE BLOOD 06965027858 No Longer Active Suze Corey VOGEL Active TRUERESULT BLOOD GLUCOSE W/DEVICE KIT use to test blood sugar tid dx: 250.00 BLOOD GLUCOSE MONITORING SUPPL 50317620590 No Longer Active Suze Corey RMA Active ALIGN 4 MG CAPS 1 tid PROBIOTIC PRODUCT 39277591783 No Longer Active Shaun Sy MD Active CIPRO 500 MG TABS 1 bid x 14 days start 09-28-13 CIPROFLOXACIN HCL 95327289671 No Longer Active Shaun Sy MD Active TRAMADOL HCL 50 MG TABS 1-2 tablets every 6 hours as needed for pain TRAMADOL HCL 65086758037 Active Lesli Kellogg APRN Active HYDROCODONE-ACETAMINOPHEN 5-325 MG TABS 1 tab by mouth every 6 hours as needed for pain HYDROCODONE-ACETAMINOPHEN 59308853422 No Longer Active Tu Landeros MD Active OMEPRAZOLE 20 MG CPDR 1 po q a.m. OMEPRAZOLE 38277573182 Active Lesli Kellogg APRN Active GABAPENTIN 100 MG CAPS 1 po bid GABAPENTIN 00384713184 No Longer Active Tu Landeros MD Active B-12 100 MCG TABS Take one by mouth daily CYANOCOBALAMIN 77945112885 No Longer Active Tu Landeros MD Active BACTRIM DS 800-160 MG TABS 1 bid x 14 day start 09-28-13 SULFAMETHOXAZOLE-TRIMETHOPRIM 21347310798 No Longer Active Tu Landeros MD Active CARVEDILOL 12.5 MG TABS 1 po BID CARVEDILOL 20256269631 Active Tu Landeros MD Active TRILIPIX 135 MG CPDR 1 q hs CHOLINE FENOFIBRATE 91231923963 Active Tu Landeros MD Active FENOFIBRATE 145 MG TABS 1 po qd FENOFIBRATE 11700773219 No Longer Active JASPREET Perez Active OMEPRAZOLE 20 MG TBEC 1 PO 30 MIN BEFORE 1ST MEAL OMEPRAZOLE 13413189067 No Longer Active JASPREET Perez Active SIMVASTATIN 40 MG TABS Take one by mouth daily SIMVASTATIN 32266174967 No Longer Active JASPREET Perez Active VENLAFAXINE HCL 75 MG TABS 1 po BID VENLAFAXINE HCL 12495729893 No Longer Active Nabb Norma, RMA Active CIPRO 500 MG TAB 1 tablet by mouth twice daily CIPROFLOXACIN HCL 39783835340 No Longer Active Tu Landeros MD Active VENLAFAXINE HCL 37.5 MG TABS 1 po BID VENLAFAXINE HCL 66624868042 No Longer Active Suze Nicole RMA Active LAMISIL 250 MG TAB 1 po qd TERBINAFINE HCL 89596520389 No Longer Active Tu Landeros MD Active LORTAB 5 5-500 MG TABS 1/2 to 1 tablet by mouth every 4 hours as needed for pain HYDROCODONE-ACETAMINOPHEN 31293390445 No Longer Active Tu Landeros MD Active HYDROCODONE-ACETAMINOPHEN 5-500 MG TABS take one po Q 4-6 hours prn HYDROCODONE-ACETAMINOPHEN 96048102055 No Longer Active Tu Landeros MD Active BACTRIM DS 800-160 MG TABS 1 po BID x 7 days SULFAMETHOXAZOLE-TRIMETHOPRIM 61333352965 No Longer Active Tu Landeros MD Active VENLAFAXINE HCL 75 MG TABS 1 po BID VENLAFAXINE HCL 83438685549 No Longer Active Elvira Cervantes MD PhD Active TRAMADOL HCL 50 MG TABS 1 tablets every 6 hours as needed for pain TRAMADOL HCL 49380486752 No Longer Active Tu Landeros MD Active ACCU-CHEK FASTCLIX LANCETS MISC Use to check bloodsugar three times daily as needed LANCETS 26709905546 No Longer Active Tu Landeros MD Active ACCU-CHEK KEYONA PLUS STRP Use for testing bloodsugars three times daily as needed GLUCOSE BLOOD 24514797545 No Longer Active Tu Landeros MD Active ACCU-CHEK KEYONA PLUS W/DEVICE KIT Use for testing bloodsugars three times daily as needed BLOOD GLUCOSE MONITORING SUPPL 25697758180 No Longer Active Tu Landeros MD Active SPIRONOLACTONE 25 MG TAB 0.5 tablet by mouth daily SPIRONOLACTONE 30974714345 No Longer Active Tu Landeros MD Active ALPRAZOLAM 0.5 MG TABS 1 tab every 6hrs as needed ALPRAZOLAM 81994564287 No Longer Active Tu Landeros MD Active AUGMENTIN 875-125 MG TAB 1 tab by mouth twice daily with food AMOXICILLIN-POT CLAVULANATE 63175373414 No Longer Active Tu Landeros MD Active PREDNISONE 20 MG TAB 2 tabs daily for 3 days, 1 tab daily for 3 days, 1/2 tab daily for 2 days PREDNISONE 99478612529 No Longer Active Tu Landeros MD Active XANAX 0.5 MG TABS 1 tablet every 6 hrs prn ALPRAZOLAM 51765981496 No Longer Active Tu Landeros MD Active PREDNISONE 20 MG TAB 2 tabs daily for 3 days, 1 tab daily for 3 days, 1/2 tab daily for 2 days PREDNISONE 06377161782 No Longer Active Tu Landeros MD Active TRIAMCINOLONE ACETONIDE 0.1 % OINT Apply to affected areas TID for up to 2 weeks TRIAMCINOLONE ACETONIDE 98826878956 No Longer Active Tu Landeros MD Active LORTAB 5 5-500 MG TABS 1/2 to 1 tablet by mouth every 4 hours as needed for pain HYDROCODONE-ACETAMINOPHEN 42087771388 No Longer Active Tu Landeros MD Active MULTIVITAMINS TABS Take one by mouth daily MULTIPLE VITAMIN 17668378386 No Longer Active Tu Landeros MD Active MELATONIN 5 MG TABS Take one by mouth daily MELATONIN 75627717275 No Longer Active Tu Landeros MD Active SOMA 350 MG TAB 1 po q 6 hours prn spasm CARISOPRODOL 42129613865 No Longer Active Tu Landeros MD Active MECLIZINE HCL 25 MG CHEW TAB 1 four times a day as needed for dizziness 08/05 MECLIZINE HCL 09811213560 No Longer Active Fab Morales DO Active ANGEL NIKKOEZAdrianna 2 TEST DISK test tid prn GLUCOSE BLOOD 84365000554 No Longer Active Negra Tyler MICHAEL Active REGLAN 10 MG TAB 1 po TID PRN Nausea METOCLOPRAMIDE HCL 93353927101 No Longer Active Tu Landeros MD Active METFORMIN HCL 500 MG TABS 1 PO BID METFORMIN HCL 42574608563 No Longer Active Tu Landeros MD Active AMBIEN 10 MG TAB 1 tab by mouth at bedtime as needed for sleep ZOLPIDEM TARTRATE 44383520387 No Longer Active Tu Landeros MD Active FLUOXETINE HCL 40 MG CAPS 1 po q day FLUOXETINE HCL 20920504343 No Longer Active Mayra [place] Active TRILIPIX 135 MG CPDR 1 po qd CHOLINE FENOFIBRATE 44042977606 No Longer Active Tu Landeros MD Active AMBIEN 10 MG TAB 1 tab by mouth at bedtime as needed for sleep AMBIEN 10 MG TAB 305461 ZOLPIDEM TARTRATE Inactive METFORMIN HCL 500 MG TABS 1 PO BID METFORMIN HCL 500 MG TABS 424612 METFORMIN HCL Inactive REGLAN 10 MG TAB 1 po TID PRN Nausea REGLAN 10 MG TAB 030863 METOCLOPRAMIDE HCL Inactive MECLIZINE HCL 25 MG CHEW TAB 1 four times a day as needed for dizziness 08/05 MECLIZINE HCL 25 MG CHEW TAB 792148 MECLIZINE HCL Inactive SOMA 350 MG TAB 1 po q 6 hours prn spasm SOMA 350 MG TAB 261406 CARISOPRODOL Inactive MELATONIN 5 MG TABS Take one by mouth daily MELATONIN 5 MG TABS 395389 MELATONIN Inactive MULTIVITAMINS TABS Take one by mouth daily MULTIVITAMINS TABS MULTIPLE VITAMIN Inactive LORTAB 5 5-500 MG TABS 1/2 to 1 tablet by mouth every 4 hours as needed for pain LORTAB 5 5-500 MG TABS HYDROCODONE- ACETAMINOPHEN Inactive XANAX 0.5 MG TABS 1 tablet every 6 hrs prn XANAX 0.5 MG TABS 238216 ALPRAZOLAM Inactive AUGMENTIN 875-125 MG TAB 1 tab by mouth twice daily with food AUGMENTIN 875-125 MG TAB 961744 AMOXICILLIN-POT CLAVULANATE Inactive ALPRAZOLAM 0.5 MG TABS 1 tab every 6hrs as needed ALPRAZOLAM 0.5 MG TABS 680445 ALPRAZOLAM Inactive SPIRONOLACTONE 25 MG TAB 0.5 tablet by mouth daily SPIRONOLACTONE 25 MG TAB 584669 SPIRONOLACTONE Inactive ACCU-CHEK KEYONA PLUS W/DEVICE KIT Use for testing bloodsugars three times daily as needed ACCU-CHEK KEYONA PLUS W/DEVICE KIT BLOOD GLUCOSE MONITORING SUPPL Inactive ACCU-CHEK KEYONA PLUS STRP Use for testing bloodsugars three times daily as needed ACCU-CHEK KEYONA PLUS STRP GLUCOSE BLOOD Inactive ACCU-CHEK FASTCLIX LANCETS MISC Use to check bloodsugar three times daily as needed ACCU-CHEK FASTCLIX LANCETS MISC 47273117470 LANCETS Inactive TRAMADOL HCL 50 MG TABS 1 tablets every 6 hours as needed for pain TRAMADOL HCL 50 MG TABS 562546 TRAMADOL HCL Inactive VENLAFAXINE HCL 75 MG TABS 1 po BID VENLAFAXINE HCL 75 MG TABS 823586 VENLAFAXINE HCL Inactive HYDROCODONE-ACETAMINOPHEN 5-500 MG TABS take one po Q 4-6 hours prn HYDROCODONE-ACETAMINOPHEN 5-500 MG TABS HYDROCODONE- ACETAMINOPHEN Inactive LORTAB 5 5-500 MG TABS 1/2 to 1 tablet by mouth every 4 hours as needed for pain LORTAB 5 5-500 MG TABS HYDROCODONE- ACETAMINOPHEN Inactive LAMISIL 250 MG TAB 1 po qd LAMISIL 250 MG TAB 312354 TERBINAFINE HCL Inactive VENLAFAXINE HCL 37.5 MG TABS 1 po BID VENLAFAXINE HCL 37.5 MG TABS 308604 VENLAFAXINE HCL Inactive CIPRO 500 MG TAB 1 tablet by mouth twice daily CIPRO 500 MG TAB 070734 CIPROFLOXACIN HCL Inactive VENLAFAXINE HCL 75 MG TABS 1 po BID VENLAFAXINE HCL 75 MG TABS 464345 VENLAFAXINE HCL Inactive SIMVASTATIN 40 MG TABS Take one by mouth daily SIMVASTATIN 40 MG TABS 488383 SIMVASTATIN Inactive OMEPRAZOLE 20 MG TBEC 1 PO 30 MIN BEFORE 1ST MEAL OMEPRAZOLE 20 MG TBEC 734930 OMEPRAZOLE Inactive FENOFIBRATE 145 MG TABS 1 po qd FENOFIBRATE 145 MG TABS 652821 FENOFIBRATE Inactive BACTRIM DS 800-160 MG TABS 1 bid x 14 day start 09-28-13 BACTRIM DS 800-160 MG TABS 088191 SULFAMETHOXAZOLE-TRIMETHOPRIM Inactive B-12 100 MCG TABS Take one by mouth daily B-12 100 MCG TABS CYANOCOBALAMIN Inactive GABAPENTIN 100 MG CAPS 1 po bid GABAPENTIN 100 MG CAPS 805632 GABAPENTIN Inactive HYDROCODONE-ACETAMINOPHEN 5-325 MG TABS 1 tab by mouth every 6 hours as needed for pain HYDROCODONE-ACETAMINOPHEN 5-325 MG TABS 749504 HYDROCODONE-ACETAMINOPHEN Inactive CIPRO 500 MG TABS 1 bid x 14 days start 09-28-13 CIPRO 500 MG TABS 093417 CIPROFLOXACIN HCL Inactive ALIGN 4 MG CAPS [...] as needed DICLOFENAC SODIUM 50 MG TBEC 372759 DICLOFENAC SODIUM Inactive PREDNISONE 20 MG TAB 2 tablets once daily for 2 days, then 1 tablet once daily for 2 days PREDNISONE 20 MG TAB 280143 PREDNISONE Inactive TRUEDRAW LANCING DEVICE MISC Test twice a day dx 250.0 TRUEDRAW LANCING DEVICE MISC LANCET DEVICES Inactive TRUERESULT BLOOD GLUCOSE W/DEVICE KIT test blood sugar twice daily dx 250.00 TRUERESULT BLOOD GLUCOSE W/DEVICE KIT BLOOD GLUCOSE MONITORING SUPPL Inactive FLONASE 50 MCG/ACT SUSP 1 spray each nostril twice daily until bottle empty FLONASE 50 MCG/ACT SUSP 7571265 FLUTICASONE PROPIONATE Inactive VENTOLIN HFA 108 (90 BASE) MCG/ACT AERS 1-2 puffs every 4 hours if needed for cough/congestion VENTOLIN HFA 108 (90 BASE) MCG/ACT AERS ALBUTEROL SULFATE Inactive REQUIP 2 MG TABS Take one tablet at bedtime prn REQUIP 2 MG TABS 837436 ROPINIROLE HCL Inactive SUPER B COMPLEX/VITAMIN C TABS 1 qd SUPER B COMPLEX/ VITAMIN C TABS 67555106337 B COMPLEX-C Inactive TRUEDRAW LANCING DEVICE MISC test blood sugar twice daily dx: 250.00 TRUEDRAW LANCING DEVICE MISC LANCET DEVICES Inactive TRUETEST TEST INVITR STRP test blood sugar twice daily. DX 250.0 TRUETEST TEST INVITR STRP GLUCOSE BLOOD Inactive TRIAMCINOLONE ACETONIDE 0.1 % OINT Apply to affected areas TID for up to 2 weeks TRIAMCINOLONE ACETONIDE 0.1 % OINT 3097615 TRIAMCINOLONE ACETONIDE Inactive PREDNISONE 20 MG TAB 2 tabs daily for 3 days, 1 tab daily for 3 days, 1/2 tab daily for 2 days PREDNISONE 20 MG TAB 308191 PREDNISONE Inactive PREDNISONE 20 MG TAB 2 tabs daily for 3 days, 1 tab daily for 3 days, 1/2 tab daily for 2 days PREDNISONE 20 MG TAB 938142 PREDNISONE Inactive BACTRIM DS 800-160 MG TABS 1 po BID x 7 days BACTRIM DS 800-160 MG TABS 853352 SULFAMETHOXAZOLE-TRIMETHOPRIM Inactive ZITHROMAX 250 MG TAB 2 po today, then 1 po q days 2-5 ZITHROMAX 250 MG TAB 5210702 AZITHROMYCIN Inactive Advance Directives Directive Description Start Date DISCUSSED WITH PATIENT -- NO DECISION MADE Immunizations Vaccine Administration Date Value Standard Description Seasonal influenza vaccine, injectable, containing preservative, for > 3 years old (Afluria, FluLaval, Fluzone, Fluvirin, Fluarix, Agriflu(>=18 yo)) Fluzone (>3 yrs.) [YMP644] Influenza, seasonal, injectable influenza immunization (Flu Vax) has been administered 02/22/2012 influenza virus vaccine, unspecified formulation Seasonal influenza vaccine, injectable, containing preservative, for > 3 years old (Afluria, FluLaval, Fluzone, Fluvirin, Fluarix, Agriflu(>=18 yo)) Fluzone (>3 yrs.) [[id number]] Influenza, seasonal, injectable Vital Signs Date Name [...] Magnesium - Chemistry sodium, serum 143 mmol/L 195-964 2981/01/10 carbon dioxide, venous blood 28.0 mmol/L 21.0-32.0 potassium, serum 4.5 mmol/L 3.5-5.2 chloride, serum 104 mmol/L 98-107 blood glucose 158 mg/dL 65-110 urea nitrogen, blood 23 mg/dL 7-18 creatinine, serum 1.06 mg/dL 0.55-1.30 alanine aminotransferase (SGPT), serum 42 U/L 12-78 aspartate aminotransferase (SGOT), serum 32 U/L 15-37 calcium, serum 9.3 mg/dL 8.5-10.1 bilirubin, serum, total 0.20 mg/dL 0.00-1.00 cholesterol, serum 177 mg/dL 845-301 5596/01/10 triglyceride, serum, fasting 320 mg/dL 30-200 HDL cholesterol, serum 46 mg/dL 32-96 LDL cholesterol, serum 67 mg/dL 0-130 Lab Report: COMPREHENSIVE METABOLIC PANEL, LIPID PANEL, HEMOGLOBIN A1c - Chemistry cholesterol, serum 135 mg/dL 788-412 4260/05/17 HDL cholesterol, serum 41 mg/dL > OR=46 triglyceride, serum, fasting 206 mg/dL <150 LDL cholesterol, serum 53 MG/DL (CALC) mg/dL <130 cholesterol/HDL ratio, serum 3.3 (calc) < OR=5.0 Lab Report: HGBA1C - Chemistry hemoglobin A1C, blood, as % of total hemoglobin 7.4 % 4.3-6.0 sodium, serum 140 mmol/L 659-252 1981/09/07 potassium, serum 4.3 mmol/L 3.5-5.2 chloride, serum [...] <30 Encounters Code Encounter Date Provider Facility CPT-55990 Level 4 Est. Patient 14:29:21 CDT Tu Landeros MD [facility] CPT-21773 Level 4 Est. Patient 09:08:17 CATALYST UNIT OPERATOR Tu Landeros MD [facility] CPT-35039 Level 4 Est. Patient 14:40:19 CDT Tu Landeros MD [facility] CPT-33290 Level 4 Est. Patient 14:06:04 CATALYST UNIT OPERATOR Tu Landeros MD [facility] CPT-68045 Level 3 Est. Patient 14:05:18 CATALYST UNIT OPERATOR Tu Landeros MD [facility] CPT-48344 Level 3 Est. Patient 10:06:54 CATALYST UNIT OPERATOR Mirandawinston Suresh APRN [facility] CPT-97023 Level 4 Est. Patient 13:50:18 CATALYST UNIT OPERATOR Tu Landeros MD [facility] CPT-94572 Level 3 Est. Patient 10:30:04 CDT Tu Landeros MD [facility] CPT-74774 Level 4 Est. Patient 11:03:38 CDT Tu Landeros MD [facility] CPT-84244 Level 3 Est. Patient 10:20:44 CDT Fab Morales DO [facility] CPT-35232 Level 4 Est. Patient 14:38:57 CDT Tu Landeros MD [facility] CPT-45431 Level 4 Est. Patient 14:27:39 CATALYST UNIT OPERATOR Tu Landeros MD [facility] CPT-08933 Level 4 Est. Patient 09:45:25 CDT Tu Landeros MD [facility] CPT-55262 Level 4 Est. Patient 09:05:20 CATALYST UNIT OPERATOR Tu Landeros MD [facility] CPT-15170 Level 4 Est. Patient 14:09:06 CDT Tu Landeros MD [facility] CPT-56361 Level 3 Est. Patient 13:36:54 CDT Tu Landeros MD [facility] CPT-82908 Level 3 Est. Patient 08:59:14 CDT Tu Landeros MD [facility] CPT-41129 Level 3 Est. Patient 13:48:35 CDT Fab Morales DO [facility] CPT-88945 Level 4 Est. Patient 10:05:48 CDT Tu Landeros MD [facility] CPT-20204 Level 3 Est. Patient 13:38:42 CDT Marek BANKS [facility] CPT-91034 Level 5 Est. Patient 08:08:39 CDT Piyushrichajanelle Dawsontay FRANCIS [facility] CPT-35198 Level 4 Est. Patient 14:23:38 CDT Tu Landeros MD [facility] CPT-67706 Level 3 Est. Patient 11:44:04 CDT Tu Landeros MD [facility] CPT-92360 Level 3 Est. Patient 11:03:20 CATALYST UNIT OPERATOR Tu Landeros MD [facility] CPT-57449 Level 3 Est. Patient 11:03:14 CATALYST UNIT OPERATOR Tu Landeros MD [facility] CPT-56173 Level 3 Est. Patient 12:42:49 CDT Tu Landeros MD [facility] CPT-23577 Level 3 Est. Patient 11:52:06 CDT Tu Landeros MD [facility] CPT-84279 Level 3 Est. Patient 13:58:11 CDT Tu Landeros MD [facility] CPT-98246 Level 3 Est. Patient 17:50:07 CDT Fab Morales DO [facility] CPT-83928 Level 3 Est. Patient 12:06:29 CDT Elvira Cervantes MD PhD [facility] CPT-20051 Level 3 Est. Patient 15:50:32 CDT Tu Landeros MD [facility] CPT-51840 Level 4 Est. Patient 16:08:29 CDT Tu Landeros MD [facility] CPT-72687 Level 3 Est. Patient 16:04:19 CDT Tu Landeros MD [facility] CPT-81984 Level 3 Est. Patient 11:22:30 CATALYST UNIT OPERATOR Tu Landeros MD [facility] CPT-53137 Level 4 Est. Patient 16:24:02 CATALYST UNIT OPERATOR Tu Landeros MD [facility] CPT-94613 Level 3 Est. Patient 17:21:23 CATALYST UNIT OPERATOR Tu Landeros MD [facility] Procedures Code Procedure Name Date Entry Date Standard Description CPT-G0009 Administration of Pneumococcal Vaccine 15:08:26 CDT CPT-28021 Prevnar 13 Intramuscular Suspension 15:08:26 CDT 10/08 CPT-G0439 [facility] Annual Wellness Exam 14:29:22 CDT CPT-12157 Venipuncture Draw Fee 13:15:35 CDT CPT-44611 Magnesium - LAB USE ONLY 11:14:20 CATALYST UNIT OPERATOR CPT-51034 Lipid - LAB USE ONLY 11:14:20 CATALYST UNIT OPERATOR CPT-77172 HGBA1C - LAB USE ONLY 11:14:20 CATALYST UNIT OPERATOR CPT-02076 CMP - LAB USE ONLY 11:14:19 CATALYST UNIT OPERATOR CPT-02838 CBC - LAB USE ONLY 11:14:19 CATALYST UNIT OPERATOR CPT-62577 Venipuncture Draw Fee 11:14:18 CATALYST UNIT OPERATOR CPT-73146 First Vx - Ix admin for Medicare patients 16:46:52 CDT CPT-63386 Fluzone Preservative Free Intramuscular Suspension 16:46 :51 CDT CPT-18059 CBC - LAB USE ONLY 17:14:46 CDT CPT-00553 HGBA1C - LAB USE ONLY 17:14:46 CDT CPT-97978 Venipuncture Draw Fee 17:14:46 CDT CPT-G0438 Initial Annual Wellness Exam 14:13:04 CDT CPT-26030 Breathing Tx 10:06:54 CATALYST UNIT OPERATOR CPT-02900 Postop F/U Visit 10:02:45 CDT CPT-LR Lesion Removal 09:02:56 CDT CPT-JTINJ Asp/Joint Injection 15:51:27 CATALYST UNIT OPERATOR CPT-OV Office Visit 15:52:02 CATALYST UNIT OPERATOR CPT-OV Office Visit 15:45:11 CDT CPT-000 Give Zostavax 14:09:06 CDT CPT-76260 Administration single or combination vaccine inc oral 15 :19:04 CDT CPT-81416 Zoster Vaccine (Zostavax) 15:19:04 CDT CPT-12936 Administration single or combination vaccine inc oral 20 :51:03 CDT CPT-86466 Influenza split virus > age 3 20:51:03 CDT CPT-93073 No Charge Offi Visit 14:52:03 CDT CPT-OV Office Visit 14:57:43 CDT CPT-OV Office Visit 15:22:32 CDT CPT-06670 Administration single or combination vaccine inc oral 11 :33:15 CDT CPT-35387 Influenza split virus > age 3 11:33:15 CDT
--- OUTSIDE RECORDS SUMMARY | 2018-04-25 13:08 | XMS REPORT | Clinical Summary ---
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 sinusitis, unspecified Leg pain, left 729.5 [...] Inactive Tu Landeros MD Hot flashes ICD-627.2 Tessa Landeros MD Sebaceous cyst ICD-706.2 Inactive Tu Landeros MD Medication List Medication Instructions Start Date Stop Date Generic Name NDC Status Provider Patient Instruction VENTOLIN HFA 108 (90 BASE) MCG/ACT AERS 1-2 puffs every 4 hours if needed for cough/congestion ALBUTEROL SULFATE 07035600234 Active Miranda Suresh APRN Active ZITHROMAX 250 MG TAB 2 po today, then 1 po q days 2-5 AZITHROMYCIN 24810230112 No Longer Active Miranda Suresh APRN Active METFORMIN HCL 1000 MG TABS 1 tablet by mouth twice daily METFORMIN HCL 20858663297 Active Tu Landeros MD Active FLONASE 50 MCG/ACT SUSP 1 spray each nostril twice daily until bottle empty FLUTICASONE PROPIONATE 10255969782 No Longer Active Tu Landeros MD Active COLACE 100 MG CAP 1 po BID PRN Constipation DOCUSATE SODIUM 97141267383 Active Tu Landeros MD Active SIMVASTATIN 40 MG TABS 0.5 tab daily at bedtime SIMVASTATIN 22479349473 Active JASPREET Moffett Active TRUERESULT BLOOD GLUCOSE W/DEVICE KIT test blood sugar twice daily dx 250.00 BLOOD GLUCOSE MONITORING SUPPL 42661993813 No Longer Active Tu Landeros MD Active TRUEDRAW LANCING DEVICE MISC Test twice a day dx 250.0 LANCET DEVICES 33736484322 No Longer Active Tu Landeros MD Active PREDNISONE 20 MG TAB 2 tablets once daily for 2 days, then 1 tablet once daily for 2 days PREDNISONE 47657396470 No Longer Active Tu Landeros MD Active DICLOFENAC SODIUM 50 MG TBEC 1 tablet by mouth three times a day as needed DICLOFENAC SODIUM 21182441321 No Longer Active Fab Morales DO Active TRUEDRAW LANCING DEVICE MISC test blood sugar twice daily dx: 250.00 LANCET DEVICES 37937874108 Active Tu Landeros MD Active TRUETEST TEST INVITR STRP test blood sugar twice daily. DX 250.0 GLUCOSE BLOOD 87709204364 Active Tu Landeros MD Active EMBRACE BLOOD GLUCOSE TEST STRP test blood sugar twice daily DX 250.0 2014 GLUCOSE BLOOD 24132896399 No Longer Active Tu Landeros MD Active TRUETEST TEST STRP test blood sugar three times daily dx: 250.00 GLUCOSE BLOOD 57970702762 No Longer Active Suze VOGEL Active TRUERESULT BLOOD GLUCOSE W/DEVICE KIT use to test blood sugar tid dx: 250.00 BLOOD GLUCOSE MONITORING SUPPL 81840184971 No Longer Active Suzebianca VOGEL Active ALIGN 4 MG CAPS 1 tid PROBIOTIC PRODUCT 23290251343 No Longer Active Shaun Sy MD Active CIPRO 500 MG TABS 1 bid x 14 days start 09-28-13 CIPROFLOXACIN HCL 22155625358 No Longer Active Shaun Sy MD Active TRAMADOL HCL 50 MG TABS 1-2 tablets every 6 hours as needed for pain TRAMADOL HCL 56074763777 Active Simon Smith MD Active HYDROCODONE-ACETAMINOPHEN 5-325 MG TABS 1 tab by mouth every 6 hours as needed for pain HYDROCODONE-ACETAMINOPHEN 27325815906 No Longer Active Tu Landeros MD Active OMEPRAZOLE 20 MG CPDR 1 po q a.m. OMEPRAZOLE 75368753168 Active Tu Landeros MD Active GABAPENTIN 100 MG CAPS 1 po bid GABAPENTIN 85301803857 No Longer Active Tu Landeros MD Active B-12 100 MCG TABS Take one by mouth daily CYANOCOBALAMIN 29964396928 No Longer Active Tu Landeros MD Active GABAPENTIN 100 MG CAPS by mouth twice a day GABAPENTIN 87694255690 Active Tu Landeros MD Active BACTRIM DS 800-160 MG TABS 1 bid x 14 day start 09-28-13 SULFAMETHOXAZOLE-TRIMETHOPRIM 79841577656 No Longer Active Tu Landeros MD Active CARVEDILOL 12.5 MG TABS 1 po BID CARVEDILOL 21671316405 Active Tu Landeros MD Active SUPER B COMPLEX/VITAMIN C TABS 1 qd B COMPLEX-C 13492148731 Active JASPREET Perez Active TRILIPIX 135 MG CPDR 1 q hs CHOLINE FENOFIBRATE 35513210505 Active Tu Landeros MD Active FENOFIBRATE 145 MG TABS 1 po qd FENOFIBRATE 03953015464 No Longer Active JASPREET Perez Active OMEPRAZOLE 20 MG TBEC 1 PO 30 MIN BEFORE 1ST MEAL OMEPRAZOLE 56425434565 No Longer Active JASPREET Perez Active SIMVASTATIN 40 MG TABS Take one by mouth daily SIMVASTATIN 05277909332 No Longer Active JASPREET Perez Active VENLAFAXINE HCL 37.5 MG TABS 1 bid VENLAFAXINE HCL 16247517424 Active Tu Landeros MD Active VENLAFAXINE HCL 75 MG TABS 1 po BID VENLAFAXINE HCL 60701991510 No Longer Active JASPREET Perez Active CIPRO 500 MG TAB 1 tablet by mouth twice daily CIPROFLOXACIN HCL 90169016664 No Longer Active Tu Landeros MD Active VENLAFAXINE HCL 37.5 MG TABS 1 po BID VENLAFAXINE HCL 67413757211 No Longer Active Suzebianca NUNOA Active LAMISIL 250 MG TAB 1 po qd TERBINAFINE HCL 76817083253 No Longer Active Tu Landeros MD Active LORTAB 5 5-500 MG TABS 1/2 to 1 tablet by mouth every 4 hours as needed for pain HYDROCODONE-ACETAMINOPHEN 42819389161 No Longer Active Tu Landeros MD Active ENALAPRIL MALEATE 20 MG TABS 1.5 po qd ENALAPRIL MALEATE 02246111713 Active Tu Landeros MD Active HYDROCODONE-ACETAMINOPHEN 5-500 MG TABS take one po Q 4-6 hours prn HYDROCODONE-ACETAMINOPHEN 15025762641 No Longer Active Tu Landeros MD Active BACTRIM DS 800-160 MG TABS 1 po BID x 7 days SULFAMETHOXAZOLE-TRIMETHOPRIM 32185322749 No Longer Active Tu Landeros MD Active VENLAFAXINE HCL 75 MG TABS 1 po BID VENLAFAXINE HCL 22366344491 No Longer Active Elvira Cervantes MD PhD Active TRAMADOL HCL 50 MG TABS 1 tablets every 6 hours as needed for pain TRAMADOL HCL 19701487295 No Longer Active Tu Landeros MD Active ACCU-CHEK FASTCLIX LANCETS MISC Use to check bloodsugar three times daily as needed LANCETS 38365958383 No Longer Active Tu Landeros MD Active ACCU-CHEK KEYONA PLUS STRP Use for testing bloodsugars three times daily as needed GLUCOSE BLOOD 09107491799 No Longer Active Tu Landeros MD Active ACCU-CHEK KEYONA PLUS W/DEVICE KIT Use for testing bloodsugars three times daily as needed BLOOD GLUCOSE MONITORING SUPPL 45159034217 No Longer Active Tu Landeros MD Active SPIRONOLACTONE 25 MG TAB 0.5 tablet by mouth daily SPIRONOLACTONE 35531290644 No Longer Active Tu Landeros MD Active ALPRAZOLAM 0.5 MG TABS 1 tab every 6hrs as needed ALPRAZOLAM 68234105862 No Longer Active Tu Landeros MD Active AUGMENTIN 875-125 MG TAB 1 tab by mouth twice daily with food AMOXICILLIN-POT CLAVULANATE 85510784285 No Longer Active Tu Landeros MD Active PREDNISONE 20 MG TAB 2 tabs daily for 3 days, 1 tab daily for 3 days, 1/2 tab daily for 2 days PREDNISONE 07395215191 No Longer Active Tu Landeros MD Active XANAX 0.5 MG TABS 1 tablet every 6 hrs prn ALPRAZOLAM 58263252414 No Longer Active Tu Landeros MD Active PREDNISONE 20 MG TAB 2 tabs daily for 3 days, 1 tab daily for 3 days, 1/2 tab daily for 2 days PREDNISONE 35525583196 No Longer Active Tu Landeros MD Active TRIAMCINOLONE ACETONIDE 0.1 % OINT Apply to affected areas TID for up to 2 weeks TRIAMCINOLONE ACETONIDE 69407342160 No Longer Active Tu Landeros MD Active LORTAB 5 5-500 MG TABS 1/2 to 1 tablet by mouth every 4 hours as needed for pain HYDROCODONE-ACETAMINOPHEN 36806008708 No Longer Active Tu Landeros MD Active MULTIVITAMINS TABS Take one by mouth daily MULTIPLE VITAMIN 33066644653 No Longer Active Tu Landeros MD Active MELATONIN 5 MG TABS Take one by mouth daily MELATONIN 69297274335 No Longer Active Tu Landeros MD Active SOMA 350 MG TAB 1 po q 6 hours prn spasm CARISOPRODOL 36359962346 No Longer Active Tu Landeros MD Active MECLIZINE HCL 25 MG CHEW TAB 1 four times a day as needed for dizziness 08/05 MECLIZINE HCL 66261024269 No Longer Active Fab Morales DO Active ANGEL BREEZE 2 TEST DISK test tid prn GLUCOSE BLOOD 84168240904 No Longer Active Negra Scott RN Active REGLAN 10 MG TAB 1 po TID PRN Nausea METOCLOPRAMIDE HCL 10427238309 No Longer Active Tu Landeros MD Active METFORMIN HCL 500 MG TABS 1 PO BID METFORMIN HCL 20334368954 No Longer Active Tu Landeros MD Active AMBIEN 10 MG TAB 1 tab by mouth at bedtime as needed for sleep ZOLPIDEM TARTRATE 44152550795 No Longer Active Tu Landeros MD Active FLUOXETINE HCL 40 MG CAPS 1 po q day FLUOXETINE HCL 21168808456 No Longer Active Mayra Terry Active FISH OIL 1000 MG CAPS Take one by mouth daily OMEGA-3 FATTY ACIDS 65284763706 Active Tu Landeros MD Active GLUCOSAMINE 500 MG TABS Take 2 tab po qd GLUCOSAMINE 99788070522 Active Tu Landeros MD Active TRILIPIX 135 MG CPDR 1 po qd CHOLINE FENOFIBRATE 54246270306 No Longer Active Tu Landeros MD Active ASPIRIN 81 MG CHEW TAB 1 tablet by mouth daily ASPIRIN 71484885732 Active Tu Landeros MD Active FUROSEMIDE 40 MG TAB 1 tablet by mouth daily FUROSEMIDE 62479498545 Active Tu Landeros MD Active REQUIP 2 MG TABS Take one tablet at bedtime prn ROPINIROLE HCL 35376878177 Active Tu Landeros MD Active KLOR-CON 10 10 MEQ CR-TABS TAKE 2 TABS DAILY POTASSIUM CHLORIDE 90454795913 Active Tu Landeros MD Active AMBIEN 10 MG TAB 1 tab by mouth at bedtime as needed for sleep AMBIEN 10 MG TAB 866578 ZOLPIDEM TARTRATE Inactive METFORMIN HCL 500 MG TABS 1 PO BID METFORMIN HCL 500 MG TABS 544685 METFORMIN HCL Inactive REGLAN 10 MG TAB 1 po TID PRN Nausea REGLAN 10 MG TAB 707400 METOCLOPRAMIDE HCL Inactive MECLIZINE HCL 25 MG CHEW TAB 1 four times a day as needed for dizziness 08/05 MECLIZINE HCL 25 MG CHEW TAB 118327 MECLIZINE HCL Inactive SOMA 350 MG TAB 1 po q 6 hours prn spasm SOMA 350 MG TAB 781212 CARISOPRODOL Inactive MELATONIN 5 MG TABS Take one by mouth daily MELATONIN 5 MG TABS 619048 MELATONIN Inactive MULTIVITAMINS TABS Take one by mouth daily MULTIVITAMINS TABS MULTIPLE VITAMIN Inactive LORTAB 5 5-500 MG TABS 1/2 to 1 tablet by mouth every 4 hours as needed for pain LORTAB 5 5-500 MG TABS HYDROCODONE- ACETAMINOPHEN Inactive XANAX 0.5 MG TABS 1 tablet every 6 hrs prn XANAX 0.5 MG TABS 838824 ALPRAZOLAM Inactive AUGMENTIN 875-125 MG TAB 1 tab by mouth twice daily with food AUGMENTIN 875-125 MG TAB 608183 AMOXICILLIN-POT CLAVULANATE Inactive ALPRAZOLAM 0.5 MG TABS 1 tab every 6hrs as needed ALPRAZOLAM 0.5 MG TABS 001099 ALPRAZOLAM Inactive SPIRONOLACTONE 25 MG TAB 0.5 tablet by mouth daily SPIRONOLACTONE 25 MG TAB 266656 SPIRONOLACTONE Inactive ACCU-CHEK KEYONA PLUS W/DEVICE KIT Use for testing bloodsugars three times daily as needed ACCU-CHEK KEYONA PLUS W/DEVICE KIT BLOOD GLUCOSE MONITORING SUPPL Inactive ACCU-CHEK KEYONA PLUS STRP Use for testing bloodsugars three times daily as needed ACCU-CHEK KEYONA PLUS STRP GLUCOSE BLOOD Inactive ACCU-CHEK FASTCLIX LANCETS MISC Use to check bloodsugar three times daily as needed ACCU-CHEK FASTCLIX LANCETS MISC 14573623384 LANCETS Inactive TRAMADOL HCL 50 MG TABS 1 tablets every 6 hours as needed for pain TRAMADOL HCL 50 MG TABS 708376 TRAMADOL HCL Inactive VENLAFAXINE HCL 75 MG TABS 1 po BID VENLAFAXINE HCL 75 MG TABS 090032 VENLAFAXINE HCL Inactive HYDROCODONE-ACETAMINOPHEN 5-500 MG TABS take one po Q 4-6 hours prn HYDROCODONE-ACETAMINOPHEN 5-500 MG TABS HYDROCODONE- ACETAMINOPHEN Inactive LORTAB 5 5-500 MG TABS 1/2 to 1 tablet by mouth every 4 hours as needed for pain LORTAB 5 5-500 MG TABS HYDROCODONE- ACETAMINOPHEN Inactive LAMISIL 250 MG TAB 1 po qd LAMISIL 250 MG TAB 755421 TERBINAFINE HCL Inactive VENLAFAXINE HCL 37.5 MG TABS 1 po BID VENLAFAXINE HCL 37.5 MG TABS 945612 VENLAFAXINE HCL Inactive CIPRO 500 MG TAB 1 tablet by mouth twice daily CIPRO 500 MG TAB 825627 CIPROFLOXACIN HCL Inactive VENLAFAXINE HCL 75 MG TABS 1 po BID VENLAFAXINE HCL 75 MG TABS 405707 VENLAFAXINE HCL Inactive SIMVASTATIN 40 MG TABS Take one by mouth daily SIMVASTATIN 40 MG TABS 284380 SIMVASTATIN Inactive OMEPRAZOLE 20 MG TBEC 1 PO 30 MIN BEFORE 1ST MEAL OMEPRAZOLE 20 MG TBEC 999946 OMEPRAZOLE Inactive FENOFIBRATE 145 MG TABS 1 po qd FENOFIBRATE 145 MG TABS 380768 FENOFIBRATE Inactive BACTRIM DS 800-160 MG TABS 1 bid x 14 day start 09-28-13 BACTRIM DS 800-160 MG TABS 251127 SULFAMETHOXAZOLE-TRIMETHOPRIM Inactive B-12 100 MCG TABS Take one by mouth daily B-12 100 MCG TABS CYANOCOBALAMIN Inactive GABAPENTIN 100 MG CAPS 1 po bid GABAPENTIN 100 MG CAPS 979681 GABAPENTIN Inactive HYDROCODONE-ACETAMINOPHEN 5-325 MG TABS 1 tab by mouth every 6 hours as needed for pain HYDROCODONE-ACETAMINOPHEN 5-325 MG TABS 086809 HYDROCODONE-ACETAMINOPHEN Inactive CIPRO 500 MG TABS 1 bid x 14 days start 09-28-13 CIPRO 500 MG TABS 027289 CIPROFLOXACIN HCL Inactive ALIGN 4 MG CAPS [...] as needed DICLOFENAC SODIUM 50 MG TBEC 616212 DICLOFENAC SODIUM Inactive PREDNISONE 20 MG TAB 2 tablets once daily for 2 days, then 1 tablet once daily for 2 days PREDNISONE 20 MG TAB 821669 PREDNISONE Inactive TRUEDRAW LANCING DEVICE MISC Test [...] 2 weeks TRIAMCINOLONE ACETONIDE 0.1 % OINT 1794371 TRIAMCINOLONE ACETONIDE Inactive PREDNISONE 20 MG TAB 2 tabs daily for 3 days, 1 tab daily for 3 days, 1/2 tab daily for 2 days PREDNISONE 20 MG TAB 655283 PREDNISONE Inactive PREDNISONE 20 MG TAB 2 tabs daily for 3 days, 1 tab daily for 3 days, 1/2 tab daily for 2 days PREDNISONE 20 MG TAB 520585 PREDNISONE Inactive BACTRIM DS 800-160 MG TABS 1 po BID x 7 days BACTRIM DS 800-160 MG TABS 507642 SULFAMETHOXAZOLE-TRIMETHOPRIM Inactive ZITHROMAX 250 MG TAB 2 po today, then 1 po q days 2-5 ZITHROMAX 250 MG TAB 5522943 AZITHROMYCIN Inactive Immunizations Vaccine Administration Date Value Standard Description Seasonal influenza vaccine, injectable, containing preservative, for > 3 years old (Afluria, FluLaval, Fluzone, Fluvirin, Fluarix, Agriflu(>=18 yo)) Fluzone (>3 yrs.) [[id number]] Influenza, seasonal, injectable influenza immunization (Flu Vax) has been administered 02/22/2012 influenza virus vaccine, unspecified formulation Seasonal influenza vaccine, injectable, containing preservative, for > 3 years old (Afluria, FluLaval, Fluzone, Fluvirin, Fluarix, Agriflu(>=18 yo)) Fluzone (>3 yrs.) [[id number]] Influenza, seasonal, injectable Vital Signs Date Name Value Unit Range Description blood pressure, diastolic - 8462-4 72 mm[Hg] [...] E&M - 8867-4 60 /min Heart rate Diagnostic Results Date Name Value Unit Range Description Lab Report: Basic Metabolic Panel, MICROALBUMIN - Chemistry sodium, serum 142 mmol/L 857-528 8907/10/08 potassium, serum 4.5 mmol/L 3.5-5.2 chloride, serum [...] 0.30 mg/dL 0.00-1.00 cholesterol, serum 111 mg/dL 586-362 0310/07/28 triglyceride, serum, fasting 177 mg/dL 30-200 HDL cholesterol, serum 32 mg/dL 32-96 LDL cholesterol, serum 44 mg/dL 0-130 Lab Report: HGBA1C - Chemistry hemoglobin A1C, blood, as % of total hemoglobin 6.8 % 4.3-6.0 hemoglobin A1C, blood, as % of total hemoglobin 7.7 % 4.3-6.0 Lab Report: LH/Adult/615, FSH/Adult/470 - Chemistry luteinizing hormone, serum 1.3 m[iU]/mL follicle stimulating hormone, serum 5.5 m[iU]/mL Lab Report: Lipid Panel, Comp. Metabolic Panel - Chemistry cholesterol, serum 124 mg/dL 057-426 3517/01/12 triglyceride, serum, fasting 135 mg/dL 30-200 HDL cholesterol, serum 41 mg/dL 32-96 LDL cholesterol, serum 56 mg/dL 0-130 sodium, serum 140 mmol/L 905-549 6840/01/12 carbon dioxide, venous blood 27.7 mmol/L 21.0-32.0 potassium, serum 4.5 mmol/L 3.5-5.2 chloride, serum 104 mmol/L 98-107 blood glucose 139 mg/dL 65-110 urea nitrogen, blood 16 mg/dL 7-18 alanine aminotransferase (SGPT), serum 32 U/L 12-78 aspartate aminotransferase (SGOT), serum 25 U/L 15-37 calcium, serum 9.1 mg/dL 8.5-10.1 bilirubin, serum, total 0.50 mg/dL 0.00-1.00 Encounters Code Encounter Date Provider Facility CPT-91404 Level 4 Est. Patient 14:06:04 OUTREACH COORDINATOR Tu Landeros MD [facility] CPT-00769 Level 3 Est. Patient 14:05:18 OUTREACH COORDINATOR Tu Landeros MD [facility] CPT-05763 Level 3 Est. Patient 10:06:54 OUTREACH COORDINATOR Miranda Suresh APRN [facility] CPT-63074 Level 4 Est. Patient 13:50:18 OUTREACH COORDINATOR Tu Landeros MD [facility] CPT-09461 Level 3 Est. Patient 10:30:04 CDT Tu Landeros MD [facility] CPT-11488 Level 4 Est. Patient 11:03:38 CDT Tu Landeros MD [facility] CPT-47520 Level 3 Est. Patient 10:20:44 CDT Fab Morales DO [facility] CPT-87049 Level 4 Est. Patient 14:38:57 CDT Tu Landeros MD [facility] CPT-13351 Level 4 Est. Patient 14:27:39 OUTREACH COORDINATOR Tu Landeros MD [facility] CPT-58195 Level 4 Est. Patient 09:45:25 CDT Tu Landeros MD [facility] CPT-03424 Level 4 Est. Patient 09:05:20 OUTREACH COORDINATOR Tu Landeros MD [facility] CPT-83950 Level 4 Est. Patient 14:09:06 CDT Tu Landeros MD [facility] CPT-75809 Level 3 Est. Patient 13:36:54 CDT Tu Landeros MD [facility] CPT-30536 Level 3 Est. Patient 08:59:14 CDT Tu Landeros MD [facility] CPT-00648 Level 3 Est. Patient 13:48:35 CDT Fab Morales DO [facility] CPT-33852 Level 4 Est. Patient 10:05:48 CDT Tu Landeros MD [facility] CPT-74497 Level 3 Est. Patient 13:38:42 CDT Marek BANKS [facility] CPT-64677 Level 5 Est. Patient 08:08:39 CDT Jerrica FRANCIS [facility] CPT-43329 Level 4 Est. Patient 14:23:38 CDT Tu Landeros MD [facility] CPT-56287 Level 3 Est. Patient 11:44:04 CDT Tu Landeros MD [facility] CPT-91922 Level 3 Est. Patient 11:03:20 OUTREACH COORDINATOR Tu Landeros MD [facility] CPT-91080 Level 3 Est. Patient 11:03:14 OUTREACH COORDINATOR Tu Landeros MD [facility] CPT-27869 Level 3 Est. Patient 12:42:49 CDT Tu Landeros MD [facility] CPT-64862 Level 3 Est. Patient 11:52:06 CDT Tu Landeros MD [facility] CPT-93285 Level 3 Est. Patient 13:58:11 CDT Tu Landeros MD [facility] CPT-03674 Level 3 Est. Patient 17:50:07 CDT Fab Morales DO [facility] CPT-45346 Level 3 Est. Patient 12:06:29 CDT Elvira Cervantes MD, PhD [facility] CPT-95237 Level 3 Est. Patient 15:50:32 CDT Tu Landeros MD [facility] CPT-85847 Level 4 Est. Patient 16:08:29 CDT Tu Landeros MD [facility] CPT-35103 Level 3 Est. Patient 16:04:19 CDT Tu Landeros MD [facility] CPT-85143 Level 3 Est. Patient 11:22:30 OUTREACH COORDINATOR Tu Landeros MD [facility] CPT-48325 Level 4 Est. Patient 16:24:02 OUTREACH COORDINATOR Tu Landeros MD [facility] CPT-82335 Level 3 Est. Patient 17:21:23 OUTREACH COORDINATOR Tu Landeros MD [facility] Procedures Code Procedure Name Date Entry Date Standard Description CPT-47644 Breathing Tx 10:06:54 OUTREACH COORDINATOR CPT-56917 Postop F/U Visit 10:02:45 CDT CPT-LR Lesion Removal 09:02:56 CDT CPT-JTINJ Asp/Joint Injection 15:51:27 OUTREACH COORDINATOR CPT-OV Office Visit 15:52:02 OUTREACH COORDINATOR CPT-OV Office Visit 15:45:11 CDT CPT-000 Give Zostavax 14:09:06 CDT CPT-78485 Administration single or combination vaccine inc oral 15 :19:04 CDT CPT-31198 Zoster Vaccine (Zostavax) 15:19:04 CDT CPT-81498 Administration single or combination vaccine inc oral 20 :51:03 CDT CPT-04179 Influenza split virus > age 3 20:51:03 CDT CPT-94623 No Charge Offi Visit 14:52:03 CDT CPT-OV Office Visit 14:57:43 CDT CPT-OV Office Visit 15:22:32 CDT CPT-21548 Administration single or combination vaccine inc oral 11 :33:15 CDT CPT-64127 Influenza split virus > age 3 11:33:15 CDT
--- OUTSIDE RECORDS SUMMARY | 2018-04-25 13:09 | XMS REPORT | Clinical Summary ---
Author Author Admin, SACHI Clemons [facility] Address Unknown Phone Unavailable Allergies, Adverse Reactions, [...] noninfectious gastroenteritis and colitis DIZZINESS 780.4 Resolved uT Landeros MD Dizziness and giddiness BENIGN PAROXYSMAL POSITIONAL VERTIGO 386.11 Resolved Tu Landeros MD Benign paroxysmal positional vertigo HYPERTENSION 401.1 Inactive Tu Landeros MD Benign essential hypertension Hypertension 401.9 Active Tu Landeros MD Unspecified essential hypertension LEG CRAMPS, NOCTURNAL 729.82 Resolved Tu Landeros MD Cramp of limb FREQUENCY, URINARY 788.41 Correction Elvira Cervantes MD PhD Urinary frequency FEVER UNSPECIFIED 780.60 Resolved Tu Landeors MD Fever, unspecified MUSCLE SPASM 728.85 Resolved [...] MD KNEE PAIN ICD-719.46 Tessa Landeros MD CARPAL TUNNEL SYNDROME ICD-354.0 Inactive Tu Landeros MD LOCALIZED SUPERFICIAL SWELLING MASS OR LUMP ICD-782.2 Tessa Landeros MD CONTUSION OF UNSPECIFIED SITE ICD-924.9 Tessa Landeros MD PRESSURE ULCER UNSPECIFIED SITE ICD-707.00 Tessa Landeros MD Upper respiratory infection, viral ICD-465.9 Tessa Sy MD Open wound of other and unspecified parts of trunk, complicated ICD-879.7 Tessa Landeros MD Knee pain, left, acute ICD-719.46 Tessa Landeros MD Ear pain, bilateral ICD-388.70 Tessa Landeros MD Hot flashes ICD-627.2 Tessa Landeros MD Sebaceous cyst ICD-706.2 Tessa Landeros MD ONYCHOMYCOSIS ICD-110.1 Tessa Landeros MD Open wound of abdominal wall, anterior, complicated ICD-879.3 Tessa Landeros MD Medication List Medication Instructions Start Date Stop Date Generic Name NDC Status Provider Patient Instruction FLONASE 50 MCG/ACT SUSP 1 spray each nostril twice daily until bottle empty FLUTICASONE PROPIONATE 99476021787 No Longer Active Tu Landeros MD Active COLACE 100 MG CAP 1 po BID PRN Constipation DOCUSATE SODIUM 32326427694 Active Tu Landeros MD Active SIMVASTATIN 40 MG TABS 0.5 tab daily at bedtime SIMVASTATIN 23155768349 Active Tu Landeros MD Active TRUERESULT BLOOD GLUCOSE W/DEVICE KIT test blood sugar twice daily dx 250.00 BLOOD GLUCOSE MONITORING SUPPL 52082776582 No Longer Active Tu Landeros MD Active TRUEDRAW LANCING DEVICE MISC Test twice a day dx 250.0 LANCET DEVICES 86587368437 No Longer Active Tu Landeros MD Active PREDNISONE 20 MG TAB 2 tablets once daily for 2 days, then 1 tablet once daily for 2 days PREDNISONE 11012012558 No Longer Active Tu Landeros MD Active DICLOFENAC SODIUM 50 MG TBEC 1 tablet by mouth three times a day as needed DICLOFENAC SODIUM 72433841865 No Longer Active Fab Morales DO Active METFORMIN HCL 850 MG TABS 1 tablet by mouth twice daily METFORMIN HCL 38278267290 Active Tu Landeros MD Active TRUEDRAW LANCING DEVICE MISC test blood sugar twice daily dx: 250.00 LANCET DEVICES 12524171466 Active Tu Landeros MD Active TRUETEST TEST INVITR STRP test blood sugar twice daily. DX 250.0 GLUCOSE BLOOD 71731713821 Active Tu Landeros MD Active EMBRACE BLOOD GLUCOSE TEST STRP test blood sugar twice daily DX 250.0 2014 GLUCOSE BLOOD 20279450618 No Longer Active Tu Landeros MD Active TRUETEST TEST STRP test blood sugar three times daily dx: 250.00 GLUCOSE BLOOD 68757804204 No Longer Active Suze VOGEL Active TRUERESULT BLOOD GLUCOSE W/DEVICE KIT use to test blood sugar tid dx: 250.00 BLOOD GLUCOSE MONITORING SUPPL 98982271703 No Longer Active Suze Nicole RMA Active ALIGN 4 MG CAPS 1 tid PROBIOTIC PRODUCT 53788435749 No Longer Active Shaun Sy MD Active CIPRO 500 MG TABS 1 bid x 14 days start 09-28-13 CIPROFLOXACIN HCL 92852376312 No Longer Active Shaun Sy MD Active TRAMADOL HCL 50 MG TABS 1-2 tablets every 6 hours as needed for pain TRAMADOL HCL 86652030436 Active Tu Landeros MD Active HYDROCODONE-ACETAMINOPHEN 5-325 MG TABS 1 tab by mouth every 6 hours as needed for pain HYDROCODONE-ACETAMINOPHEN 95449491159 No Longer Active Tu Landeros MD Active OMEPRAZOLE 20 MG CPDR 1 po q a.m. OMEPRAZOLE 75021865920 Active Tu Landeros MD Active GABAPENTIN 100 MG CAPS 1 po bid GABAPENTIN 99052189173 No Longer Active Tu Landeros MD Active B-12 100 MCG TABS Take one by mouth daily CYANOCOBALAMIN 45004500344 No Longer Active Tu Landeros MD Active GABAPENTIN 100 MG CAPS by mouth twice a day GABAPENTIN 90532392475 Active Tu Landeros MD Active BACTRIM DS 800-160 MG TABS 1 bid x 14 day start 09-28-13 SULFAMETHOXAZOLE-TRIMETHOPRIM 55363371611 No Longer Active Tu Landeros MD Active CARVEDILOL 12.5 MG TABS 1 po BID CARVEDILOL 14562275642 Active Tu Landeros MD Active SUPER B COMPLEX/VITAMIN C TABS 1 qd B COMPLEX-C 32521802403 Active JASPREET Perez Active TRILIPIX 135 MG CPDR 1 q hs CHOLINE FENOFIBRATE 10744749578 Active Tu Landeros MD Active FENOFIBRATE 145 MG TABS 1 po qd FENOFIBRATE 64401937248 No Longer Active JASPREET Perez Active OMEPRAZOLE 20 MG TBEC 1 PO 30 MIN BEFORE 1ST MEAL OMEPRAZOLE 17526742836 No Longer Active JASPREET Perez Active SIMVASTATIN 40 MG TABS Take one by mouth daily SIMVASTATIN 47112680961 No Longer Active Gustavo JASPREET Green Active VENLAFAXINE HCL 37.5 MG TABS 1 bid VENLAFAXINE HCL 57788099557 Active Tu Landeros MD Active VENLAFAXINE HCL 75 MG TABS 1 po BID VENLAFAXINE HCL 01735749903 No Longer Active JASPREET Perez Active CIPRO 500 MG TAB 1 tablet by mouth twice daily CIPROFLOXACIN HCL 37754892810 No Longer Active Tu Landeros MD Active VENLAFAXINE HCL 37.5 MG TABS 1 po BID VENLAFAXINE HCL 61851395822 No Longer Active Suzebainca NUNOA Active LAMISIL 250 MG TAB 1 po qd TERBINAFINE HCL 83989805769 No Longer Active Tu Landeros MD Active LORTAB 5 5-500 MG TABS 1/2 to 1 tablet by mouth every 4 hours as needed for pain HYDROCODONE-ACETAMINOPHEN 77482981889 No Longer Active Tu Landeros MD Active ENALAPRIL MALEATE 20 MG TABS 1.5 po qd ENALAPRIL MALEATE 57270772440 Active Tu Landeros MD Active HYDROCODONE-ACETAMINOPHEN 5-500 MG TABS take one po Q 4-6 hours prn HYDROCODONE-ACETAMINOPHEN 99792896726 No Longer Active uT Landeros MD Active BACTRIM DS 800-160 MG TABS 1 po BID x 7 days SULFAMETHOXAZOLE-TRIMETHOPRIM 42730442519 No Longer Active Tu Landeros MD Active VENLAFAXINE HCL 75 MG TABS 1 po BID VENLAFAXINE HCL 38391490445 No Longer Active Elvira Cervantes MD PhD Active TRAMADOL HCL 50 MG TABS 1 tablets every 6 hours as needed for pain TRAMADOL HCL 43613195347 No Longer Active Tu Landeros MD Active ACCU-CHEK FASTCLIX LANCETS MISC Use to check bloodsugar three times daily as needed LANCETS 92931555259 No Longer Active Tu Landeros MD Active ACCU-CHEK KEYONA PLUS STRP Use for testing bloodsugars three times daily as needed GLUCOSE BLOOD 95687461837 No Longer Active Tu Landeros MD Active ACCU-CHEK KEYONA PLUS W/DEVICE KIT Use for testing bloodsugars three times daily as needed BLOOD GLUCOSE MONITORING SUPPL 76333008118 No Longer Active Tu Landeros MD Active SPIRONOLACTONE 25 MG TAB 0.5 tablet by mouth daily SPIRONOLACTONE 01819698614 No Longer Active Tu Landeros MD Active ALPRAZOLAM 0.5 MG TABS 1 tab every 6hrs as needed ALPRAZOLAM 00893623023 No Longer Active Tu Landeros MD Active AUGMENTIN 875-125 MG TAB 1 tab by mouth twice daily with food AMOXICILLIN-POT CLAVULANATE 35698872145 No Longer Active Tu Landeros MD Active PREDNISONE 20 MG TAB 2 tabs daily for 3 days, 1 tab daily for 3 days, 1/2 tab daily for 2 days PREDNISONE 68599452967 No Longer Active Tu Landeros MD Active XANAX 0.5 MG TABS 1 tablet every 6 hrs prn ALPRAZOLAM 33934798792 No Longer Active Tu Landeros MD Active PREDNISONE 20 MG TAB 2 tabs daily for 3 days, 1 tab daily for 3 days, 1/2 tab daily for 2 days PREDNISONE 04238162880 No Longer Active Tu Landeros MD Active TRIAMCINOLONE ACETONIDE 0.1 % OINT Apply to affected areas TID for up to 2 weeks TRIAMCINOLONE ACETONIDE 19359111477 No Longer Active Tu Landeros MD Active LORTAB 5 5-500 MG TABS 1/2 to 1 tablet by mouth every 4 hours as needed for pain HYDROCODONE-ACETAMINOPHEN 56617368506 No Longer Active Tu Landeros MD Active MULTIVITAMINS TABS Take one by mouth daily MULTIPLE VITAMIN 53360393534 No Longer Active Tu Landeros MD Active MELATONIN 5 MG TABS Take one by mouth daily MELATONIN 59951880758 No Longer Active Tu Landeros MD Active SOMA 350 MG TAB 1 po q 6 hours prn spasm CARISOPRODOL 07052375121 No Longer Active Tu Landeros MD Active MECLIZINE HCL 25 MG CHEW TAB 1 four times a day as needed for dizziness 08/05 MECLIZINE HCL 99726872572 No Longer Active Fab Morales DO Active ANGEL BREEZE 2 TEST DISK test tid prn GLUCOSE BLOOD 59124876162 No Longer Active Negra Scott RN Active REGLAN 10 MG TAB 1 po TID PRN [place] METOCLOPRAMIDE HCL 01253739610 No Longer Active Tu Landeros MD Active METFORMIN HCL 500 MG TABS 1 PO BID METFORMIN HCL 48108647203 No Longer Active Tu Landeros MD Active AMBIEN 10 MG TAB 1 tab by mouth at bedtime as needed for sleep ZOLPIDEM TARTRATE 93815405103 No Longer Active Tu Landeros MD Active FLUOXETINE HCL 40 MG CAPS 1 po q day FLUOXETINE HCL 25393202425 No Longer Active Mayra Vanderwagen Active FISH OIL 1000 MG CAPS Take one by mouth daily OMEGA-3 FATTY ACIDS 00666092736 Active Tu Landeros MD Active GLUCOSAMINE 500 MG TABS Take 2 tab po qd GLUCOSAMINE 03673153547 Active Tu Landeros MD Active TRILIPIX 135 MG CPDR 1 po qd CHOLINE FENOFIBRATE 84542164276 No Longer Active Tu Landeros MD Active ASPIRIN 81 MG CHEW TAB 1 tablet by mouth daily ASPIRIN 80413019575 Active Tu Landeros MD Active FUROSEMIDE 40 MG TAB 1 tablet by mouth daily FUROSEMIDE 28949719177 Active Tu Landeros MD Active REQUIP 2 MG TABS Take one tablet at bedtime prn ROPINIROLE HCL 87039964495 Active Tu Landeros MD Active KLOR-CON 10 10 MEQ CR-TABS TAKE 2 TABS DAILY POTASSIUM CHLORIDE 74173637868 Active Tu Landeros MD Active AMBIEN 10 MG TAB 1 tab by mouth at bedtime as needed for sleep AMBIEN 10 MG TAB 294811 ZOLPIDEM TARTRATE Inactive METFORMIN HCL 500 MG TABS 1 PO BID METFORMIN HCL 500 MG TABS 579894 METFORMIN HCL Inactive REGLAN 10 MG TAB 1 po TID PRN Nausea REGLAN 10 MG TAB 924717 METOCLOPRAMIDE HCL Inactive MECLIZINE HCL 25 MG CHEW TAB 1 four times a day as needed for dizziness 08/05 MECLIZINE HCL 25 MG CHEW TAB 476672 MECLIZINE HCL Inactive SOMA 350 MG TAB 1 po q 6 hours prn spasm SOMA 350 MG TAB 877504 CARISOPRODOL Inactive MELATONIN 5 MG TABS Take one by mouth daily MELATONIN 5 MG TABS 798546 MELATONIN Inactive MULTIVITAMINS TABS Take one by mouth daily MULTIVITAMINS TABS MULTIPLE VITAMIN Inactive LORTAB 5 5-500 MG TABS 1/2 to 1 tablet by mouth every 4 hours as needed for pain LORTAB 5 5-500 MG TABS HYDROCODONE- ACETAMINOPHEN Inactive XANAX 0.5 MG TABS 1 tablet every 6 hrs prn XANAX 0.5 MG TABS 889572 ALPRAZOLAM Inactive AUGMENTIN 875-125 MG TAB 1 tab by mouth twice daily with food AUGMENTIN 875-125 MG TAB 293040 AMOXICILLIN-POT CLAVULANATE Inactive ALPRAZOLAM 0.5 MG TABS 1 tab every 6hrs as needed ALPRAZOLAM 0.5 MG TABS 423781 ALPRAZOLAM Inactive SPIRONOLACTONE 25 MG TAB 0.5 tablet by mouth daily SPIRONOLACTONE 25 MG TAB 311142 SPIRONOLACTONE Inactive ACCU-CHEK KEYONA PLUS W/DEVICE KIT Use for testing bloodsugars three times daily as needed ACCU-CHEK KEYONA PLUS W/DEVICE KIT BLOOD GLUCOSE MONITORING SUPPL Inactive ACCU-CHEK KEYONA PLUS STRP Use for testing bloodsugars three times daily as needed ACCU-CHEK KEYONA PLUS STRP GLUCOSE BLOOD Inactive ACCU-CHEK FASTCLIX LANCETS MISC Use to check bloodsugar three times daily as needed ACCU-CHEK FASTCLIX LANCETS MISC 69347617116 LANCETS Inactive TRAMADOL HCL 50 MG TABS 1 tablets every 6 hours as needed for pain TRAMADOL HCL 50 MG TABS 328267 TRAMADOL HCL Inactive VENLAFAXINE HCL 75 MG TABS 1 po BID VENLAFAXINE HCL 75 MG TABS 534117 VENLAFAXINE HCL Inactive HYDROCODONE-ACETAMINOPHEN 5-500 MG TABS take one po Q 4-6 hours prn HYDROCODONE-ACETAMINOPHEN 5-500 MG TABS HYDROCODONE- ACETAMINOPHEN Inactive LORTAB 5 5-500 MG TABS 1/2 to 1 tablet by mouth every 4 hours as needed for pain LORTAB 5 5-500 MG TABS HYDROCODONE- ACETAMINOPHEN Inactive LAMISIL 250 MG TAB 1 po qd LAMISIL 250 MG TAB 422765 TERBINAFINE HCL Inactive VENLAFAXINE HCL 37.5 MG TABS 1 po BID VENLAFAXINE HCL 37.5 MG TABS 301193 VENLAFAXINE HCL Inactive CIPRO 500 MG TAB 1 tablet by mouth twice daily CIPRO 500 MG TAB 856821 CIPROFLOXACIN HCL Inactive VENLAFAXINE HCL 75 MG TABS 1 po BID VENLAFAXINE HCL 75 MG TABS 272366 VENLAFAXINE HCL Inactive SIMVASTATIN 40 MG TABS Take one by mouth daily SIMVASTATIN 40 MG TABS 341879 SIMVASTATIN Inactive OMEPRAZOLE 20 MG TBEC 1 PO 30 MIN BEFORE 1ST MEAL OMEPRAZOLE 20 MG TBEC 959571 OMEPRAZOLE Inactive FENOFIBRATE 145 MG TABS 1 po qd FENOFIBRATE 145 MG TABS 961618 FENOFIBRATE Inactive BACTRIM DS 800-160 MG TABS 1 bid x 14 day start 09-28-13 BACTRIM DS 800-160 MG TABS 384726 SULFAMETHOXAZOLE-TRIMETHOPRIM Inactive B-12 100 MCG TABS Take one by mouth daily B-12 100 MCG TABS CYANOCOBALAMIN Inactive GABAPENTIN 100 MG CAPS 1 po bid GABAPENTIN 100 MG CAPS 989429 GABAPENTIN Inactive HYDROCODONE-ACETAMINOPHEN 5-325 MG TABS 1 tab by mouth every 6 hours as needed for pain HYDROCODONE-ACETAMINOPHEN 5-325 MG TABS 878749 HYDROCODONE-ACETAMINOPHEN Inactive CIPRO 500 MG TABS 1 bid x 14 days start 09-28-13 CIPRO 500 MG TABS 412090 CIPROFLOXACIN HCL Inactive ALIGN 4 MG CAPS [...] as needed DICLOFENAC SODIUM 50 MG TBEC 358471 DICLOFENAC SODIUM Inactive PREDNISONE 20 MG TAB 2 tablets once daily for 2 days, then 1 tablet once daily for 2 days PREDNISONE 20 MG TAB 559505 PREDNISONE Inactive TRUEDRAW LANCING DEVICE MISC Test [...] 2 weeks TRIAMCINOLONE ACETONIDE 0.1 % OINT 3769232 TRIAMCINOLONE ACETONIDE Inactive PREDNISONE 20 MG TAB 2 tabs daily for 3 days, 1 tab daily for 3 days, 1/2 tab daily for 2 days PREDNISONE 20 MG TAB 451060 PREDNISONE Inactive PREDNISONE 20 MG TAB 2 tabs daily for 3 days, 1 tab daily for 3 days, 1/2 tab daily for 2 days PREDNISONE 20 MG TAB 906364 PREDNISONE Inactive BACTRIM DS 800-160 MG TABS 1 po BID x 7 days BACTRIM DS 800-160 MG TABS 572536 SULFAMETHOXAZOLE-TRIMETHOPRIM Inactive Immunizations Vaccine Administration Date Value Standard Description Seasonal influenza vaccine, injectable, containing preservative, for > 3 years old (Afluria, FluLaval, Fluzone, Fluvirin, Fluarix, Agriflu(>=18 yo)) Fluzone (>3 yrs.) [[id number]] Influenza, seasonal, injectable influenza immunization (Flu Vax) has been administered 02/22/2012 influenza virus vaccine, unspecified formulation Seasonal influenza vaccine, injectable, containing preservative, for > 3 years old (Afluria, FluLaval, Fluzone, Fluvirin, Fluarix, Agriflu(>=18 yo)) Fluzone (>3 yrs.) [[id number]] Influenza, seasonal, injectable Vital Signs Date Name [...] Report: Basic Metabolic Panel, CBC - Chemistry calcium, serum 8.6 mg/dL 8.5-10.1 urea nitrogen, blood 22 mg/dL 7-18 creatinine, serum 1.10 mg/dL 0.60-1.30 blood glucose 141 mg/dL 65-110 carbon dioxide, venous blood 30.3 mmol/L 21.0-32.0 chloride, serum 105 mmol/L 98-107 potassium, serum 4.9 mmol/L 3.5-5.2 sodium, serum 143 mmol/L 136-145 Lab Report: Basic Metabolic Panel, CBC - [...] mg/g mg/g{creat} 0-29 sodium, serum 142 mmol/L 211-646 7301/10/08 potassium, serum 4.5 mmol/L 3.5-5.2 chloride, serum [...] 0.30 mg/dL 0.00-1.00 cholesterol, serum 111 mg/dL 128-797 8653/07/28 triglyceride, serum, fasting 177 mg/dL 30-200 HDL cholesterol, serum 32 mg/dL 32-96 LDL cholesterol, serum 44 mg/dL 0-130 Lab Report: HGBA1C - Chemistry hemoglobin A1C, blood, as % of total hemoglobin 6.8 % 4.3-6.0 hemoglobin A1C, blood, as % of total hemoglobin 6.6 % 4.3-6.0 Lab Report: LH/Adult/615, FSH/Adult/470 - Chemistry luteinizing hormone, serum 1.3 m[iU]/mL follicle stimulating hormone, serum 5.5 m[iU]/mL Encounters Code Encounter Date Provider Facility CPT-46919 Level 4 Est. Patient 13:50:18 SOCIAL SERVICES DIRECTOR Tu Landeros MD [facility] CPT-51848 Level 3 Est. Patient 10:30:04 CDT Tu Landeros MD [facility] CPT-74139 Level 4 Est. Patient 11:03:38 CDT Tu Landeros MD [facility] CPT-17486 Level 3 Est. Patient 10:20:44 CDT Fab Morales DO [facility] CPT-21066 Level 4 Est. Patient 14:38:57 CDT Tu Landeros MD [facility] CPT-41332 Level 4 Est. Patient 14:27:39 SOCIAL SERVICES DIRECTOR Tu Landeros MD [facility] CPT-01463 Level 4 Est. Patient 09:45:25 CDT Tu Landeros MD [facility] CPT-54014 Level 4 Est. Patient 09:05:20 SOCIAL SERVICES DIRECTOR Tu Landeros MD [facility] CPT-34978 Level 4 Est. Patient 14:09:06 CDT Tu Landeros MD [facility] CPT-78624 Level 3 Est. Patient 13:36:54 CDT Tu Landeros MD [facility] CPT-01206 Level 3 Est. Patient 08:59:14 CDT Tu Landeros MD [facility] CPT-18137 Level 3 Est. Patient 13:48:35 CDT Fab Morales DO [facility] CPT-26348 Level 4 Est. Patient 10:05:48 CDT Tu Landeros MD [facility] CPT-13072 Level 3 Est. Patient 13:38:42 CDT Marek BANKS [facility] CPT-68981 Level 5 Est. Patient 08:08:39 CDT Jerrica FRANCIS [facility] CPT-23411 Level 4 Est. Patient 14:23:38 CDT Tu Landeros MD [facility] CPT-74468 Level 3 Est. Patient 11:44:04 CDT Tu Landeros MD [facility] CPT-04078 Level 3 Est. Patient 11:03:20 SOCIAL SERVICES DIRECTOR Tu Landeros MD [facility] CPT-73513 Level 3 Est. Patient 11:03:14 SOCIAL SERVICES DIRECTOR Tu Landeros MD [facility] CPT-05954 Level 3 Est. Patient 12:42:49 CDT Tu Landeros MD [facility] CPT-87798 Level 3 Est. Patient 11:52:06 CDT Tu Landeros MD [facility] CPT-21784 Level 3 Est. Patient 13:58:11 CDT Tu Landeros MD [facility] CPT-82195 Level 3 Est. Patient 17:50:07 CDT Fab Morales DO [facility] CPT-42398 Level 3 Est. Patient 12:06:29 CDT Elvira Cervantes MD PhD [facility] CPT-88898 Level 3 Est. Patient 15:50:32 CDT Tu Landeros MD [facility] CPT-63688 Level 4 Est. Patient 16:08:29 CDT Tu Landeros MD [facility] CPT-13769 Level 3 Est. Patient 16:04:19 CDT Tu Landeros MD [facility] CPT-42799 Level 3 Est. Patient 11:22:30 SOCIAL SERVICES DIRECTOR Tu Landeros MD [facility] CPT-17824 Level 4 Est. Patient 16:24:02 SOCIAL SERVICES DIRECTOR Tu Landeros MD [facility] CPT-86062 Level 3 Est. Patient 17:21:23 SOCIAL SERVICES DIRECTOR Tu Landeros MD [facility] Procedures Code Procedure Name Date Entry Date Standard Description CPT-77743 Postop F/U Visit 10:02:45 CDT CPT-LR Lesion Removal 09:02:56 CDT CPT-JTINJ Asp/Joint Injection 15:51:27 SOCIAL SERVICES DIRECTOR CPT-OV Office Visit 15:52:02 SOCIAL SERVICES DIRECTOR CPT-OV Office Visit 15:45:11 CDT CPT-000 Give Zostavax 14:09:06 CDT CPT-01263 Administration single or combination vaccine inc oral 15 :19:04 CDT CPT-13927 Zoster Vaccine (Zostavax) 15:19:04 CDT CPT-30761 Administration single or combination vaccine inc oral 20 :51:03 CDT CPT-31729 Influenza split virus > age 3 20:51:03 CDT CPT-93761 No Charge Offi Visit 14:52:03 CDT CPT-OV Office Visit 14:57:43 CDT CPT-OV Office Visit 15:22:32 CDT CPT-04356 Administration single or combination vaccine inc oral 11 :33:15 CDT CPT-38214 Influenza split virus > age 3 11:33:15 CDT
--- OUTSIDE RECORDS SUMMARY | 2018-04-25 13:10 | XMS REPORT | Clinical Summary ---
Author Author Admin, SACHI Clemons [facility] Address Unknown Phone Unavailable Allergies, Adverse [...] Entry Date Provider Comment Standard Description Annotate DEPRESSION 311 Active Tu Landeros MD Depressive disorder, not elsewhere classified HYPERLIPIDEMIA, OTHER UNSPECIFIED 272.4 Inactive Tu Landeros MD Other and unspecified hyperlipidemia Hyperlipidemia 272.4 Active Tu Landeros MD Other and unspecified hyperlipidemia POSTMENOPAUSAL BLEEDING 627.1 Resolved Elvira Cervantes MD PhD Postmenopausal bleeding DIABETES MELLITUS, TYPE II 250.00 Active Tu Landeros MD Diabetes mellitus without mention of complication, type II or unspecified type, not stated as uncontrolled HEALTH SCREENING V70.0 Inactive Elvira Cervantes MD PhD Routine general medical examination at a health care facility SLEEP APNEA, OBSTRUCTIVE 327.23 Active Tu Landeros MD Obstructive sleep [...] peripheral 356.9 Active Tu Landeros MD Unspecified idiopathic peripheral neuropathy Upper respiratory infection, viral [...] whether generalized or localized, involving unspecified site POSTMENOPAUSAL BLEEDING ICD-627.1 Inactive Elvira [...] left, acute ICD-719.46 Inactive Tu Landeros MD Medication List Medication Instructions Start Date Stop Date Generic Name NDC Status Provider Patient Instruction TRUEDRAW LANCING DEVICE MISC test blood sugar twice daily dx: 250.00 LANCET DEVICES 52133861875 Active uT Landeros MD Active TRUEDRAW LANCING DEVICE MISC Test twice a day dx 250.0 LANCET DEVICES 69742155040 Active Tu Landeros MD Active TRUERESULT BLOOD GLUCOSE W/DEVICE KIT test blood sugar twice daily dx 250.00 BLOOD GLUCOSE MONITORING SUPPL 03149738030 Active Tu Landeros MD Active TRUETEST TEST INVITR STRP test blood sugar twice daily. DX 250.0 GLUCOSE BLOOD 10548574470 Active Tu Landeros MD Active EMBRACE BLOOD GLUCOSE TEST STRP test blood sugar twice daily DX 250.0 2014 GLUCOSE BLOOD 54318938074 No Longer Active Tu Landeros MD Active TRUETEST TEST STRP test blood sugar three times daily dx: 250.00 GLUCOSE BLOOD 63139964653 No Longer Active Suzebianca VOGEL Active TRUERESULT BLOOD GLUCOSE W/DEVICE KIT use to test blood sugar tid dx: 250.00 BLOOD GLUCOSE MONITORING SUPPL 98369600803 No Longer Active Suze Corey RMA Active ALIGN 4 MG CAPS 1 tid PROBIOTIC PRODUCT 87135572408 No Longer Active Shaun Sy MD Active CIPRO 500 MG TABS 1 bid x 14 days start 5-01-04 CIPROFLOXACIN HCL 55421534934 No Longer Active Shaun Sy MD Active TRAMADOL HCL 50 MG TABS 1-2 tablets every 6 hours as needed for pain TRAMADOL HCL 58435697133 Active Fab Morales DO Active HYDROCODONE-ACETAMINOPHEN 5-325 MG TABS 1 tab by mouth every 6 hours as needed for pain HYDROCODONE-ACETAMINOPHEN 48204342361 No Longer Active Tu Landeros MD Active OMEPRAZOLE 20 MG CPDR 1 po q a.m. OMEPRAZOLE 50830017840 Active Tu Landeros MD Active GABAPENTIN 100 MG CAPS 1 po bid GABAPENTIN 15306613512 No Longer Active Tu Landeros MD Active B-12 100 MCG TABS Take one by mouth daily CYANOCOBALAMIN 98538979641 No Longer Active Tu Landeros MD Active GABAPENTIN 100 MG CAPS by mouth twice a day GABAPENTIN 48759085922 Active uT Landeros MD Active BACTRIM DS 800-160 MG TABS 1 bid x 14 day start 09-28-13 SULFAMETHOXAZOLE-TRIMETHOPRIM 50267690858 No Longer Active Tu Landeros MD Active SIMVASTATIN 40 MG TABS 1 tab daily at bedtime SIMVASTATIN 82880603057 Active Tu Landeros MD Active CARVEDILOL 12.5 MG TABS 1 po BID CARVEDILOL 54184596814 Active Tu Landeros MD Active SUPER B COMPLEX/VITAMIN C TABS 1 qd B COMPLEX-C 17447658173 Active JASPREET Perez Active TRILIPIX 135 MG CPDR 1 q hs CHOLINE FENOFIBRATE 71020879957 Active Tu Landeros MD Active FENOFIBRATE 145 MG TABS 1 po qd FENOFIBRATE 54146235623 No Longer Active JASPREET Perez Active OMEPRAZOLE 20 MG TBEC 1 PO 30 MIN BEFORE 1ST MEAL OMEPRAZOLE 59491081457 No Longer Active JASPREET Perez Active SIMVASTATIN 40 MG TABS Take one by mouth daily SIMVASTATIN 55418152072 No Longer Active JASPREET Perez Active VENLAFAXINE HCL 37.5 MG TABS 1 bid VENLAFAXINE HCL 27130187234 Active Tu Landeros MD Active VENLAFAXINE HCL 75 MG TABS 1 po BID VENLAFAXINE HCL 10435288216 No Longer Active JASPREET Perez Active METFORMIN HCL 500 MG TB24 1.5 po BID METFORMIN HCL 53183854735 Active Tu Landeros MD Active CIPRO 500 MG TAB 1 tablet by mouth twice daily CIPROFLOXACIN HCL 05243353094 No Longer Active Tu Landeros MD Active VENLAFAXINE HCL 37.5 MG TABS 1 po BID VENLAFAXINE HCL 37943942736 No Longer Active Suzebianca Nicole RMA Active [employer] STOOL SOFTENER 100 MG CAPS 1 tab daily DOCUSATE SODIUM 66294666418 Active Tu Landeros MD Active LAMISIL 250 MG TAB 1 po qd TERBINAFINE HCL 45714052441 No Longer Active Tu Landeros MD Active LORTAB 5 5-500 MG TABS 1/2 to 1 tablet by mouth every 4 hours as needed for pain HYDROCODONE-ACETAMINOPHEN 51189985636 No Longer Active Tu Landeros MD Active ENALAPRIL MALEATE 20 MG TABS 1.5 po qd ENALAPRIL MALEATE 62034430972 Active Tu Landeros MD Active HYDROCODONE-ACETAMINOPHEN 5-500 MG TABS take one po Q 4-6 hours prn HYDROCODONE-ACETAMINOPHEN 66078986415 No Longer Active Tu Landeros MD Active BACTRIM DS 800-160 MG TABS 1 po BID x 7 days SULFAMETHOXAZOLE-TRIMETHOPRIM 01664324509 No Longer Active Tu Landeros MD Active VENLAFAXINE HCL 75 MG TABS 1 po BID VENLAFAXINE HCL 93281873300 No Longer Active Elvira Cervantes MD PhD Active TRAMADOL HCL 50 MG TABS 1 tablets every 6 hours as needed for pain TRAMADOL HCL 44208131236 No Longer Active Tu Landeros MD Active ACCU-CHEK FASTCLIX LANCETS MISC Use to check bloodsugar three times daily as needed LANCETS 08924938510 No Longer Active Tu Landeros MD Active ACCU-CHEK KEYONA PLUS STRP Use for testing bloodsugars three times daily as needed GLUCOSE BLOOD 80672513962 No Longer Active Tu Landeros MD Active ACCU-CHEK KEYONA PLUS W/DEVICE KIT Use for testing bloodsugars three times daily as needed BLOOD GLUCOSE MONITORING SUPPL 72014058776 No Longer Active Tu Landeros MD Active SPIRONOLACTONE 25 MG TAB 0.5 tablet by mouth daily SPIRONOLACTONE 26671804998 No Longer Active Tu Landeros MD Active ALPRAZOLAM 0.5 MG TABS 1 tab every 6hrs as needed ALPRAZOLAM 15405012662 No Longer Active Tu Landeros MD Active AUGMENTIN 875-125 MG TAB 1 tab by mouth twice daily with food AMOXICILLIN-POT CLAVULANATE 58740206995 No Longer Active Tu Landeros MD Active PREDNISONE 20 MG TAB 2 tabs daily for 3 days, 1 tab daily for 3 days, 1/2 tab daily for 2 days PREDNISONE 60766712218 No Longer Active Tu Landeros MD Active XANAX 0.5 MG TABS 1 tablet every 6 hrs prn ALPRAZOLAM 67736360649 No Longer Active Tu Landeros MD Active PREDNISONE 20 MG TAB 2 tabs daily for 3 days, 1 tab daily for 3 days, 1/2 tab daily for 2 days PREDNISONE 80091652211 No Longer Active Tu Landeros MD Active TRIAMCINOLONE ACETONIDE 0.1 % OINT Apply to affected areas TID for up to 2 weeks TRIAMCINOLONE ACETONIDE 23959405508 No Longer Active Tu Landeros MD Active LORTAB 5 5-500 MG TABS 1/2 to 1 tablet by mouth every 4 hours as needed for pain HYDROCODONE-ACETAMINOPHEN 37879552849 No Longer Active Tu Landeros MD Active MULTIVITAMINS TABS Take one by mouth daily MULTIPLE VITAMIN 72805515318 No Longer Active Tu Landeros MD Active MELATONIN 5 MG TABS Take one by mouth daily MELATONIN 46582289895 No Longer Active Tu Landeros MD Active SOMA 350 MG TAB 1 po q 6 hours prn spasm CARISOPRODOL 31255089258 No Longer Active Tu Landeros MD Active MECLIZINE HCL 25 MG CHEW TAB 1 four times a day as needed for dizziness 08/05 MECLIZINE HCL 75261213171 No Longer Active Fab Morales DO Active ANGEL BREEZE 2 TEST DISK test tid prn GLUCOSE BLOOD 69938007397 No Longer Active Negra Scott RN Active DICLOFENAC SODIUM 50 MG TBEC 1 tablet by mouth three times a day as needed DICLOFENAC SODIUM 01584982420 Active Tu Landeros MD Active REGLAN 10 MG TAB 1 po TID PRN [place] METOCLOPRAMIDE HCL 14324965707 No Longer Active Tu Landeros MD Active METFORMIN HCL 500 MG TABS 1 PO BID METFORMIN HCL 47459359578 No Longer Active Tu Landeros MD Active AMBIEN 10 MG TAB 1 tab by mouth at bedtime as needed for sleep ZOLPIDEM TARTRATE 90219707927 No Longer Active uT Landeros MD Active FLUOXETINE HCL 40 MG CAPS 1 po q day FLUOXETINE HCL 30971628431 No Longer Active Mayra [place] Active FISH OIL 1000 MG CAPS Take one by mouth daily OMEGA-3 FATTY ACIDS 95596956171 Active Tu Landeros MD Active GLUCOSAMINE 500 MG TABS Take 2 tab po qd GLUCOSAMINE 08225730458 Active Tu Landeros MD Active TRILIPIX 135 MG CPDR 1 po qd CHOLINE FENOFIBRATE 73262530393 No Longer Active Tu Landeros MD Active ASPIRIN 81 MG CHEW TAB 1 tablet by mouth daily ASPIRIN 43996787917 Active Tu Landeros MD Active FUROSEMIDE 40 MG TAB 1 tablet by mouth daily FUROSEMIDE 02568613332 Active Tu Landeros MD Active REQUIP 2 MG TABS Take one tablet at bedtime prn ROPINIROLE HCL 02020167642 Active Tu Landeros MD Active KLOR-CON 10 10 MEQ CR-TABS TAKE 2 TABS DAILY POTASSIUM CHLORIDE 15778114820 Active Tu Landeros MD Active AMBIEN 10 MG TAB 1 tab by mouth at bedtime as needed for sleep AMBIEN 10 MG TAB 770152 ZOLPIDEM TARTRATE Inactive METFORMIN HCL 500 MG TABS 1 PO BID METFORMIN HCL 500 MG TABS 051486 METFORMIN HCL Inactive REGLAN 10 MG TAB 1 po TID PRN [place] REGLAN 10 MG TAB 139826 METOCLOPRAMIDE HCL Inactive MECLIZINE HCL 25 MG CHEW TAB 1 four times a day as needed for dizziness 08/05 MECLIZINE HCL 25 MG CHEW TAB 739818 MECLIZINE HCL Inactive SOMA 350 MG TAB 1 po q 6 hours prn spasm SOMA 350 MG TAB 652075 CARISOPRODOL Inactive MELATONIN 5 MG TABS Take one by mouth daily MELATONIN 5 MG TABS 956100 MELATONIN Inactive MULTIVITAMINS TABS Take one by mouth daily MULTIVITAMINS TABS MULTIPLE VITAMIN Inactive LORTAB 5 5-500 MG TABS 1/2 to 1 tablet by mouth every 4 hours as needed for pain LORTAB 5 5-500 MG TABS HYDROCODONE- ACETAMINOPHEN Inactive XANAX 0.5 MG TABS 1 tablet every 6 hrs prn XANAX 0.5 MG TABS 164857 ALPRAZOLAM Inactive AUGMENTIN 875-125 MG TAB 1 tab by mouth twice daily with food AUGMENTIN 875-125 MG TAB 678619 AMOXICILLIN-POT CLAVULANATE Inactive ALPRAZOLAM 0.5 MG TABS 1 tab every 6hrs as needed ALPRAZOLAM 0.5 MG TABS 617802 ALPRAZOLAM Inactive SPIRONOLACTONE 25 MG TAB 0.5 tablet by mouth daily SPIRONOLACTONE 25 MG TAB 186302 SPIRONOLACTONE Inactive ACCU-CHEK KEYONA PLUS W/DEVICE KIT Use for testing bloodsugars three times daily as needed ACCU-CHEK KEYONA PLUS W/DEVICE KIT BLOOD GLUCOSE MONITORING SUPPL Inactive ACCU-CHEK KEYONA PLUS STRP Use for testing bloodsugars three times daily as needed ACCU-CHEK KEYONA PLUS STRP GLUCOSE BLOOD Inactive ACCU-CHEK FASTCLIX LANCETS MISC Use to check bloodsugar three times daily as needed ACCU-CHEK FASTCLIX LANCETS MISC 25255625525 LANCETS Inactive TRAMADOL HCL 50 MG TABS 1 tablets every 6 hours as needed for pain TRAMADOL HCL 50 MG TABS 924005 TRAMADOL HCL Inactive VENLAFAXINE HCL 75 MG TABS 1 po BID VENLAFAXINE HCL 75 MG TABS 197090 VENLAFAXINE HCL Inactive HYDROCODONE-ACETAMINOPHEN 5-500 MG TABS take one po Q 4-6 hours prn HYDROCODONE-ACETAMINOPHEN 5-500 MG TABS HYDROCODONE- ACETAMINOPHEN Inactive LORTAB 5 5-500 MG TABS 1/2 to 1 tablet by mouth every 4 hours as needed for pain LORTAB 5 5-500 MG TABS HYDROCODONE- ACETAMINOPHEN Inactive LAMISIL 250 MG TAB 1 po qd LAMISIL 250 MG TAB 039246 TERBINAFINE HCL Inactive VENLAFAXINE HCL 37.5 MG TABS 1 po BID VENLAFAXINE HCL 37.5 MG TABS 079628 VENLAFAXINE HCL Inactive CIPRO 500 MG TAB 1 tablet by mouth twice daily CIPRO 500 MG TAB 169213 CIPROFLOXACIN HCL Inactive VENLAFAXINE HCL 75 MG TABS 1 po BID VENLAFAXINE HCL 75 MG TABS 424885 VENLAFAXINE HCL Inactive SIMVASTATIN 40 MG TABS Take one by mouth daily SIMVASTATIN 40 MG TABS 163888 SIMVASTATIN Inactive OMEPRAZOLE 20 MG TBEC 1 PO 30 MIN BEFORE 1ST MEAL OMEPRAZOLE 20 MG TBEC 314663 OMEPRAZOLE Inactive FENOFIBRATE 145 MG TABS 1 po qd FENOFIBRATE 145 MG TABS 431301 FENOFIBRATE Inactive BACTRIM DS 800-160 MG TABS 1 bid x 14 day start 09-28-13 BACTRIM DS 800-160 MG TABS SULFAMETHOXAZOLE-TRIMETHOPRIM Inactive B-12 100 MCG TABS Take one by mouth daily B-12 100 MCG TABS CYANOCOBALAMIN Inactive GABAPENTIN 100 MG CAPS 1 po bid GABAPENTIN 100 MG CAPS 763419 GABAPENTIN Inactive HYDROCODONE-ACETAMINOPHEN 5-325 MG TABS 1 tab by mouth every 6 hours as needed for pain HYDROCODONE-ACETAMINOPHEN 5-325 MG TABS 261164 HYDROCODONE-ACETAMINOPHEN Inactive CIPRO 500 MG TABS 1 bid x 14 days start 09-28-13 CIPRO 500 MG TABS 199410 CIPROFLOXACIN HCL Inactive ALIGN 4 MG CAPS [...] BLOOD GLUCOSE TEST STRP GLUCOSE BLOOD Inactive TRIAMCINOLONE ACETONIDE 0.1 % OINT Apply to affected areas TID for up to 2 weeks TRIAMCINOLONE ACETONIDE 0.1 % OINT 2597025 TRIAMCINOLONE ACETONIDE Inactive PREDNISONE 20 MG TAB 2 tabs daily for 3 days, 1 tab daily for 3 days, 1/2 tab daily for 2 days PREDNISONE 20 MG TAB 924270 PREDNISONE Inactive PREDNISONE 20 MG TAB 2 tabs daily for 3 days, 1 tab daily for 3 days, 1/2 tab daily for 2 days PREDNISONE 20 MG TAB 891772 PREDNISONE Inactive BACTRIM DS 800-160 MG TABS 1 po BID x 7 days BACTRIM DS 800-160 MG TABS SULFAMETHOXAZOLE-TRIMETHOPRIM Inactive Immunizations Vaccine Administration Date Value Standard Description Seasonal influenza vaccine, injectable, containing preservative, for > 3 years old (Afluria, FluLaval, Fluzone, Fluvirin, Fluarix, Agriflu(>=18 yo)) Fluzone (>3 yrs.) [[id number]] Influenza, seasonal, injectable influenza immunization (Flu Vax) has been administered 02/22/2012 influenza virus vaccine, unspecified formulation Seasonal influenza vaccine, injectable, containing preservative, for > 3 years old (Afluria, FluLaval, Fluzone, Fluvirin, Fluarix, Agriflu(>=18 yo)) Fluzone (>3 yrs.) [[id number]] Influenza, seasonal, injectable Vital Signs Date Name Value Unit Range Description blood pressure, diastolic, second observation 75 mm[Hg] [...] E&M - 3141-9 319 [lb_av] Weight Measured blood pressure, diastolic - 8462-4 79 mm[Hg] BP ac blood pressure, systolic - 8480-6 137 mm[Hg] BP sys pulse rate E&M - 8867-4 61 /min Heart rate temperature E&M 97.7 [degF] Body temperature weight E&M - 3141-9 314.2 [lb_av] Weight Measured blood pressure, diastolic - 8462-4 75 mm[Hg] BP ac blood pressure, systolic - 8480-6 148 mm[Hg] BP sys pulse rate E&M - 8867-4 60 /min Heart rate temperature E&M 97.7 [degF] Body temperature weight E&M - 3141-9 313 [lb_av] Weight Measured blood pressure, diastolic - 8462-4 80 mm[Hg] BP ac blood pressure, systolic - 8480-6 136 mm[Hg] BP sys pulse rate E&M - 8867-4 65 /min Heart rate temperature E&M 98.2 [degF] Body temperature weight E&M - 3141-9 314.2 [lb_av] Weight Measured blood pressure, diastolic - 8462-4 80 mm[Hg] BP ac blood pressure, systolic - 8480-6 150 mm[Hg] BP sys height E&M - 8302-2 65 [in_us] Bdy height pulse rate E&M - 8867-4 71 /min Heart rate temperature E&M 96.8 [degF] Body temperature weight E&M - 3141-9 312 [lb_av] Weight Measured blood pressure, diastolic - 8462-4 85 mm[Hg] BP ac blood pressure, systolic - 8480-6 164 mm[Hg] BP sys pulse rate E&M - 8867-4 72 /min Heart rate temperature E&M 96.6 [degF] Body temperature weight E&M - 3141-9 305.25 [lb_av] Weight Measured Diagnostic Results Date Name Value Unit Range Description Chart Maintenance: Outside labs entered on flowsheet - Chemistry hemoglobin A1C, blood, as % of total hemoglobin 6.2 % hemoglobin A1C, blood, as % of total hemoglobin 6.4 % Lab Report: Basic Metabolic Panel, CBC - Chemistry sodium, serum 143 mmol/L 597-078 5695/03/10 potassium, serum 4.9 mmol/L 3.5-5.2 chloride, serum [...] count 275 10^3/MM^3 10*3/mm3 142-424 Lab Report: Comp. Metabolic Panel, Lipid Panel, HGBA1C - Chemistry sodium, serum 144 mmol/L 582-533 6340/04/16 potassium, serum 4.2 mmol/L 3.5-5.2 chloride, serum 106 mmol/L 98-107 carbon dioxide, venous blood 29.9 mmol/L 21.0-32.0 blood glucose 113 mg/dL 65-110 urea nitrogen, blood 22 mg/dL 7-18 creatinine, serum 1.10 mg/dL 0.60-1.30 alanine aminotransferase (SGPT), serum 21 U/L 12-78 aspartate aminotransferase (SGOT), serum 18 U/L 15-37 alkaline phosphatase, serum 84 U/L 50-136 calcium, serum 8.9 mg/dL 8.5-10.1 bilirubin, serum, total 0.20 mg/dL 0.00-1.00 cholesterol, serum 133 mg/dL 242-601 4489/04/16 triglyceride, serum, fasting 142 mg/dL 30-200 HDL cholesterol, serum 38 mg/dL 32-96 LDL cholesterol, serum 67 mg/dL 0-130 hemoglobin A1C, blood, as % of total hemoglobin 7.1 % 4.3-6.0 Lab Report: HGBA1C - Chemistry hemoglobin A1C, blood, as % of total hemoglobin 6.6 % 4.3-6.0 Lab Report: MICROALBUMIN - Chemistry albumin/creatinine ratio, urine < 30 mg/g mg/g{creat} 0-29 Lab Report: MICROALBUMIN - Lab microalbumin, urine 10 0-19 Office Visit: Abdominal Wound - Chemistry cholesterol, target level 200 mg/dL triglyceride, target level 200 mg/dL HDL cholesterol, serum, target level 35 mg/dL LDL target level 100 mg/dL Office Visit: Consult for Abdominal Wounds - Chemistry cholesterol, target level 200 mg/dL triglyceride, target level 200 mg/dL HDL cholesterol, serum, target level 35 mg/dL LDL target level 100 mg/dL Encounters Code Encounter Date Provider Facility CPT-22307 Level 4 Est. Patient 14:38:57 CDT Tu Landeros MD [facility] CPT-86605 Level 4 Est. Patient 14:27:39 SLIP BOX CHANGER Tu Landeros MD [facility] CPT-29714 Level 4 Est. Patient 09:45:25 CDT Tu Landeros MD [facility] CPT-82403 Level 4 Est. Patient 09:05:20 SLIP BOX CHANGER Tu Landeros MD [facility] CPT-91197 Level 4 Est. Patient 14:09:06 CDT Tu Landeros MD [facility] CPT-27035 Level 3 Est. Patient 13:36:54 CDT Tu Landeros MD [facility] CPT-52307 Level 3 Est. Patient 08:59:14 CDT Tu Landeros MD [facility] CPT-10998 Level 3 Est. Patient 13:48:35 CDT Fab Morales DO [facility] CPT-97257 Level 4 Est. Patient 10:05:48 CDT Tu Landeros MD [facility] CPT-27309 Level 3 Est. Patient 13:38:42 CDT Marek BANKS [facility] CPT-06596 Level 5 Est. Patient 08:08:39 CDT Jerrica FRANCIS [facility] CPT-74962 Level 4 Est. Patient 14:23:38 CDT Tu Landeros MD [facility] CPT-53796 Level 3 Est. Patient 11:44:04 CDT Tu Landeros MD [facility] CPT-14514 Level 3 Est. Patient 11:03:20 SLIP BOX CHANGER Tu Landeros MD [facility] CPT-63978 Level 3 Est. Patient 11:03:14 SLIP BOX CHANGER Tu Landeros MD [facility] CPT-91902 Level 3 Est. Patient 12:42:49 CDT Tu Landeros MD [facility] CPT-57958 Level 3 Est. Patient 11:52:06 CDT Tu Landeros MD [facility] CPT-78614 Level 3 Est. Patient 13:58:11 CDT Tu Landeros MD [facility] CPT-30748 Level 3 Est. Patient 17:50:07 CDT Fab Morales DO [facility] CPT-53205 Level 3 Est. Patient 12:06:29 CDT Elvira Cervantes MD, PhD [facility] CPT-28367 Level 3 Est. Patient 15:50:32 CDT Tu Landeros MD [facility] CPT-22714 Level 4 Est. Patient 16:08:29 CDT Tu Landeros MD [facility] CPT-97140 Level 3 Est. Patient 16:04:19 CDT Tu Landeros MD [facility] CPT-00310 Level 3 Est. Patient 11:22:30 SLIP BOX CHANGER Tu Landeros MD [facility] CPT-39511 Level 4 Est. Patient 16:24:02 SLIP BOX CHANGER Tu Landeros MD [facility] CPT-79521 Level 3 Est. Patient 17:21:23 SLIP BOX CHANGER Tu Landeros MD [facility] Procedures Code Procedure Name Date Entry Date Standard Description CPT-JTINJ Asp/Joint Injection 15:51:27 [employer] CPT-OV Office Visit 15:52:02 [employer] CPT-OV Office Visit 15:45:11 CDT CPT-000 Give Zostavax 14:09:06 CDT CPT-11187 Administration single or combination vaccine inc oral 15 :19:04 CDT CPT-13504 Zoster Vaccine (Zostavax) 15:19:04 CDT CPT-01372 Administration single or combination vaccine inc oral 20 :51:03 CDT CPT-90487 Influenza split virus > age 3 20:51:03 CDT CPT-82126 No Charge Offi Visit 14:52:03 CDT CPT-OV Office Visit 14:57:43 CDT CPT-OV Office Visit 15:22:32 CDT CPT-37633 Administration single or combination vaccine inc oral 11 :33:15 CDT CPT-87160 Influenza split virus > age 3 11:33:15 CDT
--- OUTSIDE RECORDS SUMMARY | 2018-04-25 13:12 | XMS REPORT | Clinical Summary ---
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 Acute sinusitis, unspecified Leg pain, left 729.5 Active Tu Landeros MD Pain in limb POSTMENOPAUSAL BLEEDING ICD-627.1 Inactive Elvira Cervantes MD PhD HEALTH SCREENING ICD-V70.0 Inactive Elvira Cervantes MD PhD 2011 INSOMNIA, PERSISTENT ICD-307.42 Inactive Tu Landeros MD GASTROENTERITIS ICD-558.9 Inactive Tu Landeros MD DIZZINESS ICD-780.4 Inactive Tu Landeros MD BENIGN PAROXYSMAL POSITIONAL VERTIGO ICD-386.11 Inactive uT Landeros MD LEG CRAMPS, NOCTURNAL ICD-729.82 Inactive [...] pain, bilateral ICD-388.70 Inactive Tu Landeros MD Sebaceous cyst ICD-706.2 Tessa Landeros MD Hot flashes ICD-627.2 Inactive Tu Landeros MD Medication List Medication Instructions Start Date Stop Date Generic Name ND Status Provider Patient Instruction VENTOLIN HFA 108 (90 BASE) MCG/ACT AERS 1-2 puffs every 4 hours if needed for cough/congestion ALBUTEROL SULFATE 74516430881 Active Miranda Suresh APRN Active ZITHROMAX 250 MG TAB 2 po today, then 1 po q days 2-5 AZITHROMYCIN 67671254457 No Longer Active Miranda Suresh APRN Active METFORMIN HCL 1000 MG TABS 1 tablet by mouth twice daily METFORMIN HCL 62446670244 Active Tu Landeros MD Active FLONASE 50 MCG/ACT SUSP 1 spray each nostril twice daily until bottle empty FLUTICASONE PROPIONATE 99416335909 No Longer Active Tu Landeros MD Active COLACE 100 MG CAP 1 po BID PRN Constipation DOCUSATE SODIUM 89000635640 Active Tu Landeros MD Active SIMVASTATIN 40 MG TABS 0.5 tab daily at bedtime SIMVASTATIN 67045432512 Active Tu Landeros MD Active TRUERESULT BLOOD GLUCOSE W/DEVICE KIT test blood sugar twice daily dx 250.00 BLOOD GLUCOSE MONITORING SUPPL 56916921611 No Longer Active Tu Landeros MD Active TRUEDRAW LANCING DEVICE MISC Test twice a day dx 250.0 LANCET DEVICES 96727786621 No Longer Active Tu Landeros MD Active PREDNISONE 20 MG TAB 2 tablets once daily for 2 days, then 1 tablet once daily for 2 days PREDNISONE 51402171022 No Longer Active Tu Landeros MD Active DICLOFENAC SODIUM 50 MG TBEC 1 tablet by mouth three times a day as needed DICLOFENAC SODIUM 97382303110 No Longer Active Fab Morales DO Active TRUEDRAW LANCING DEVICE MISC test blood sugar twice daily dx: 250.00 LANCET DEVICES 35397910765 Active Tu Landeros MD Active TRUETEST TEST INVITR STRP test blood sugar twice daily. DX 250.0 GLUCOSE BLOOD 11479413062 Active Tu Landeros MD Active EMBRACE BLOOD GLUCOSE TEST STRP test blood sugar twice daily DX 250.0 2014 GLUCOSE BLOOD 87100052665 No Longer Active Tu Landeros MD Active TRUETEST TEST STRP test blood sugar three times daily dx: 250.00 GLUCOSE BLOOD 71439307734 No Longer Active Suze VOGEL Active TRUERESULT BLOOD GLUCOSE W/DEVICE KIT use to test blood sugar tid dx: 250.00 BLOOD GLUCOSE MONITORING SUPPL 11693955883 No Longer Active Suze VOGEL Active ALIGN 4 MG CAPS 1 tid PROBIOTIC PRODUCT 67550494283 No Longer Active Shaun Sy MD Active CIPRO 500 MG TABS 1 bid x 14 days start 09-28-13 CIPROFLOXACIN HCL 66422089327 No Longer Active Shaun Sy MD Active TRAMADOL HCL 50 MG TABS 1-2 tablets every 6 hours as needed for pain TRAMADOL HCL 03307965220 Active Tu Landeros MD Active HYDROCODONE-ACETAMINOPHEN 5-325 MG TABS 1 tab by mouth every 6 hours as needed for pain HYDROCODONE-ACETAMINOPHEN 89958456724 No Longer Active Tu Landeros MD Active OMEPRAZOLE 20 MG CPDR 1 po q a.m. OMEPRAZOLE 46339452832 Active Tu Landeros MD Active GABAPENTIN 100 MG CAPS 1 po bid GABAPENTIN 11559325395 No Longer Active Tu Landeros MD Active B-12 100 MCG TABS Take one by mouth daily CYANOCOBALAMIN 11172895767 No Longer Active Tu Landeros MD Active GABAPENTIN 100 MG CAPS by mouth twice a day GABAPENTIN 23887728583 Active Tu Landeros MD Active BACTRIM DS 800-160 MG TABS 1 bid x 14 day start 09-28-13 SULFAMETHOXAZOLE-TRIMETHOPRIM 15331943563 No Longer Active Tu Landeros MD Active CARVEDILOL 12.5 MG TABS 1 po BID CARVEDILOL 05829123820 Active Tu Landeros MD Active SUPER B COMPLEX/VITAMIN C TABS 1 qd B COMPLEX-C 04914152603 Active JASPREET Perez Active TRILIPIX 135 MG CPDR 1 q hs CHOLINE FENOFIBRATE 77392450925 Active Tu Landeros MD Active FENOFIBRATE 145 MG TABS 1 po qd FENOFIBRATE 04114618369 No Longer Active JASPREET Perez Active OMEPRAZOLE 20 MG TBEC 1 PO 30 MIN BEFORE 1ST MEAL OMEPRAZOLE 67679578593 No Longer Active JASPREET Perez Active SIMVASTATIN 40 MG TABS Take one by mouth daily SIMVASTATIN 36676635388 No Longer Active JASPREET Perez Active VENLAFAXINE HCL 37.5 MG TABS 1 bid VENLAFAXINE HCL 12383919412 Active Tu Landeros MD Active VENLAFAXINE HCL 75 MG TABS 1 po BID VENLAFAXINE HCL 86591867504 No Longer Active JASPREET Perez Active CIPRO 500 MG TAB 1 tablet by mouth twice daily CIPROFLOXACIN HCL 45882004578 No Longer Active Tu Landeros MD Active VENLAFAXINE HCL 37.5 MG TABS 1 po BID VENLAFAXINE HCL 53276005135 No Longer Active Suze NUNOA Active LAMISIL 250 MG TAB 1 po qd TERBINAFINE HCL 69071571240 No Longer Active Tu Landeros MD Active LORTAB 5 5-500 MG TABS 1/2 to 1 tablet by mouth every 4 hours as needed for pain HYDROCODONE-ACETAMINOPHEN 19781624506 No Longer Active Tu Landeros MD Active ENALAPRIL MALEATE 20 MG TABS 1.5 po qd ENALAPRIL MALEATE 58199612640 Active Tu Landeros MD Active HYDROCODONE-ACETAMINOPHEN 5-500 MG TABS take one po Q 4-6 hours prn HYDROCODONE-ACETAMINOPHEN 92620543371 No Longer Active Tu Landeros MD Active BACTRIM DS 800-160 MG TABS 1 po BID x 7 days SULFAMETHOXAZOLE-TRIMETHOPRIM 55892062871 No Longer Active Tu Landeros MD Active VENLAFAXINE HCL 75 MG TABS 1 po BID VENLAFAXINE HCL 33975159640 No Longer Active Elvira Cervantes MD PhD Active TRAMADOL HCL 50 MG TABS 1 tablets every 6 hours as needed for pain TRAMADOL HCL 59795941623 No Longer Active Tu Landeros MD Active ACCU-CHEK FASTCLIX LANCETS MISC Use to check bloodsugar three times daily as needed LANCETS 82576578845 No Longer Active Tu Landeros MD Active ACCU-CHEK KEYONA PLUS STRP Use for testing bloodsugars three times daily as needed GLUCOSE BLOOD 22726075615 No Longer Active Tu Landeros MD Active ACCU-CHEK KEYONA PLUS W/DEVICE KIT Use for testing bloodsugars three times daily as needed BLOOD GLUCOSE MONITORING SUPPL 70034698420 No Longer Active Tu Landeros MD Active SPIRONOLACTONE 25 MG TAB 0.5 tablet by mouth daily SPIRONOLACTONE 56528577215 No Longer Active Tu Landeros MD Active ALPRAZOLAM 0.5 MG TABS 1 tab every 6hrs as needed ALPRAZOLAM 89512985311 No Longer Active Tu Landeros MD Active AUGMENTIN 875-125 MG TAB 1 tab by mouth twice daily with food AMOXICILLIN-POT CLAVULANATE 98451135047 No Longer Active Tu Landeros MD Active PREDNISONE 20 MG TAB 2 tabs daily for 3 days, 1 tab daily for 3 days, 1/2 tab daily for 2 days PREDNISONE 51671097833 No Longer Active Tu Landeros MD Active XANAX 0.5 MG TABS 1 tablet every 6 hrs prn ALPRAZOLAM 43174765301 No Longer Active Tu Landeros MD Active PREDNISONE 20 MG TAB 2 tabs daily for 3 days, 1 tab daily for 3 days, 1/2 tab daily for 2 days PREDNISONE 48631620081 No Longer Active Tu Landeros MD Active TRIAMCINOLONE ACETONIDE 0.1 % OINT Apply to affected areas TID for up to 2 weeks TRIAMCINOLONE ACETONIDE 27896076284 No Longer Active Tu Landeros MD Active LORTAB 5 5-500 MG TABS 1/2 to 1 tablet by mouth every 4 hours as needed for pain HYDROCODONE-ACETAMINOPHEN 65413452716 No Longer Active Tu Landeros MD Active MULTIVITAMINS TABS Take one by mouth daily MULTIPLE VITAMIN 35920502791 No Longer Active Tu Landeros MD Active MELATONIN 5 MG TABS Take one by mouth daily MELATONIN 24482368715 No Longer Active Tu Landeros MD Active SOMA 350 MG TAB 1 po q 6 hours prn spasm CARISOPRODOL 62180666125 No Longer Active Tu Landeros MD Active MECLIZINE HCL 25 MG CHEW TAB 1 four times a day as needed for dizziness 08/05 MECLIZINE HCL 86256546815 No Longer Active Fab Morales DO Active ANGEL BREEZE 2 TEST DISK test tid prn GLUCOSE BLOOD 46609370090 No Longer Active Negra Scott RN Active REGLAN 10 MG TAB 1 po TID PRN [place]ausea METOCLOPRAMIDE HCL 14443791642 No Longer Active Tu Landeros MD Active METFORMIN HCL 500 MG TABS 1 PO BID METFORMIN HCL 89609136269 No Longer Active Tu Landeros MD Active AMBIEN 10 MG TAB 1 tab by mouth at bedtime as needed for sleep ZOLPIDEM TARTRATE 96587218029 No Longer Active Tu Landeros MD Active FLUOXETINE HCL 40 MG CAPS 1 po q day FLUOXETINE HCL 93084699315 No Longer Active Mayra Terry Active FISH OIL 1000 MG CAPS Take one by mouth daily OMEGA-3 FATTY ACIDS 04610523765 Active Tu Landeros MD Active GLUCOSAMINE 500 MG TABS Take 2 tab po qd GLUCOSAMINE 89342732366 Active Tu Landeros MD Active TRILIPIX 135 MG CPDR 1 po qd CHOLINE FENOFIBRATE 25626930640 No Longer Active Tu Landeros MD Active ASPIRIN 81 MG CHEW TAB 1 tablet by mouth daily ASPIRIN 90210802207 Active Tu Landeros MD Active FUROSEMIDE 40 MG TAB 1 tablet by mouth daily FUROSEMIDE 51266879667 Active Tu Landeros MD Active REQUIP 2 MG TABS Take one tablet at bedtime prn ROPINIROLE HCL 45106608437 Active Tu Landeros MD Active KLOR-CON 10 10 MEQ CR-TABS TAKE 2 TABS DAILY POTASSIUM CHLORIDE 64048807276 Active Tu Landeros MD Active AMBIEN 10 MG TAB 1 tab by mouth at bedtime as needed for sleep AMBIEN 10 MG TAB 585163 ZOLPIDEM TARTRATE Inactive METFORMIN HCL 500 MG TABS 1 PO BID METFORMIN HCL 500 MG TABS 941744 METFORMIN HCL Inactive REGLAN 10 MG TAB 1 po TID PRN Nausea REGLAN 10 MG TAB 347433 METOCLOPRAMIDE HCL Inactive MECLIZINE HCL 25 MG CHEW TAB 1 four times a day as needed for dizziness 08/05 MECLIZINE HCL 25 MG CHEW TAB 391924 MECLIZINE HCL Inactive SOMA 350 MG TAB 1 po q 6 hours prn spasm SOMA 350 MG TAB 475617 CARISOPRODOL Inactive MELATONIN 5 MG TABS Take one by mouth daily MELATONIN 5 MG TABS 677843 MELATONIN Inactive MULTIVITAMINS TABS Take one by mouth daily MULTIVITAMINS TABS MULTIPLE VITAMIN Inactive LORTAB 5 5-500 MG TABS 1/2 to 1 tablet by mouth every 4 hours as needed for pain LORTAB 5 5-500 MG TABS HYDROCODONE- ACETAMINOPHEN Inactive XANAX 0.5 MG TABS 1 tablet every 6 hrs prn XANAX 0.5 MG TABS 661827 ALPRAZOLAM Inactive AUGMENTIN 875-125 MG TAB 1 tab by mouth twice daily with food AUGMENTIN 875-125 MG TAB 807211 AMOXICILLIN-POT CLAVULANATE Inactive ALPRAZOLAM 0.5 MG TABS 1 tab every 6hrs as needed ALPRAZOLAM 0.5 MG TABS 129826 ALPRAZOLAM Inactive SPIRONOLACTONE 25 MG TAB 0.5 tablet by mouth daily SPIRONOLACTONE 25 MG TAB 478932 SPIRONOLACTONE Inactive ACCU-CHEK KEYONA PLUS W/DEVICE KIT Use for testing bloodsugars three times daily as needed ACCU-CHEK KEYONA PLUS W/DEVICE KIT BLOOD GLUCOSE MONITORING SUPPL Inactive ACCU-CHEK KEYONA PLUS STRP Use for testing bloodsugars three times daily as needed ACCU-CHEK KEYONA PLUS STRP GLUCOSE BLOOD Inactive ACCU-CHEK FASTCLIX LANCETS MISC Use to check bloodsugar three times daily as needed ACCU-CHEK FASTCLIX LANCETS MISC 90465054206 LANCETS Inactive TRAMADOL HCL 50 MG TABS 1 tablets every 6 hours as needed for pain TRAMADOL HCL 50 MG TABS 958932 TRAMADOL HCL Inactive VENLAFAXINE HCL 75 MG TABS 1 po BID VENLAFAXINE HCL 75 MG TABS 766682 VENLAFAXINE HCL Inactive HYDROCODONE-ACETAMINOPHEN 5-500 MG TABS take one po Q 4-6 hours prn HYDROCODONE-ACETAMINOPHEN 5-500 MG TABS HYDROCODONE- ACETAMINOPHEN Inactive LORTAB 5 5-500 MG TABS 1/2 to 1 tablet by mouth every 4 hours as needed for pain LORTAB 5 5-500 MG TABS HYDROCODONE- ACETAMINOPHEN Inactive LAMISIL 250 MG TAB 1 po qd LAMISIL 250 MG TAB 143385 TERBINAFINE HCL Inactive VENLAFAXINE HCL 37.5 MG TABS 1 po BID VENLAFAXINE HCL 37.5 MG TABS 071252 VENLAFAXINE HCL Inactive CIPRO 500 MG TAB 1 tablet by mouth twice daily CIPRO 500 MG TAB 104638 CIPROFLOXACIN HCL Inactive VENLAFAXINE HCL 75 MG TABS 1 po BID VENLAFAXINE HCL 75 MG TABS 557910 VENLAFAXINE HCL Inactive SIMVASTATIN 40 MG TABS Take one by mouth daily SIMVASTATIN 40 MG TABS 638910 SIMVASTATIN Inactive OMEPRAZOLE 20 MG TBEC 1 PO 30 MIN BEFORE 1ST MEAL OMEPRAZOLE 20 MG TBEC 844811 OMEPRAZOLE Inactive FENOFIBRATE 145 MG TABS 1 po qd FENOFIBRATE 145 MG TABS 289149 FENOFIBRATE Inactive BACTRIM DS 800-160 MG TABS 1 bid x 14 day start 09-28-13 BACTRIM DS 800-160 MG TABS 337467 SULFAMETHOXAZOLE-TRIMETHOPRIM Inactive B-12 100 MCG TABS Take one by mouth daily B-12 100 MCG TABS CYANOCOBALAMIN Inactive GABAPENTIN 100 MG CAPS 1 po bid GABAPENTIN 100 MG CAPS 740534 GABAPENTIN Inactive HYDROCODONE-ACETAMINOPHEN 5-325 MG TABS 1 tab by mouth every 6 hours as needed for pain HYDROCODONE-ACETAMINOPHEN 5-325 MG TABS 565569 HYDROCODONE-ACETAMINOPHEN Inactive CIPRO 500 MG TABS 1 bid x 14 days start 09-28-13 CIPRO 500 MG TABS 299606 CIPROFLOXACIN HCL Inactive ALIGN 4 MG CAPS [...] as needed DICLOFENAC SODIUM 50 MG TBEC 162097 DICLOFENAC SODIUM Inactive PREDNISONE 20 MG TAB 2 tablets once daily for 2 days, then 1 tablet once daily for 2 days PREDNISONE 20 MG TAB 295205 PREDNISONE Inactive TRUEDRAW LANCING DEVICE MISC Test [...] 2 weeks TRIAMCINOLONE ACETONIDE 0.1 % OINT 4721012 TRIAMCINOLONE ACETONIDE Inactive PREDNISONE 20 MG TAB 2 tabs daily for 3 days, 1 tab daily for 3 days, 1/2 tab daily for 2 days PREDNISONE 20 MG TAB 244722 PREDNISONE Inactive PREDNISONE 20 MG TAB 2 tabs daily for 3 days, 1 tab daily for 3 days, 1/2 tab daily for 2 days PREDNISONE 20 MG TAB 335252 PREDNISONE Inactive BACTRIM DS 800-160 MG TABS 1 po BID x 7 days BACTRIM DS 800-160 MG TABS 825437 SULFAMETHOXAZOLE-TRIMETHOPRIM Inactive ZITHROMAX 250 MG TAB 2 po today, then 1 po q days 2-5 ZITHROMAX 250 MG TAB 6499154 AZITHROMYCIN Inactive Immunizations Vaccine Administration Date Value Standard Description Seasonal influenza vaccine, injectable, containing preservative, for > 3 years old (Afluria, FluLaval, Fluzone, Fluvirin, Fluarix, Agriflu(>=18 yo)) Fluzone (>3 yrs.) [[id number]] Influenza, seasonal, injectable influenza immunization (Flu Vax) has been administered 02/22/2012 influenza virus vaccine, unspecified formulation Seasonal influenza vaccine, injectable, containing preservative, for > 3 years old (Afluria, FluLaval, Fluzone, Fluvirin, Fluarix, Agriflu(>=18 yo)) Fluzone (>3 yrs.) [[id number]] Influenza, seasonal, injectable Vital Signs Date Name [...] E&M - 3141-9 314.4 [lb_av] Weight Measured Diagnostic Results Date Name Value Unit Range Description Lab Report: Basic Metabolic Panel, MICROALBUMIN - Chemistry sodium, serum 142 mmol/L 384-169 8450/10/08 potassium, serum 4.5 mmol/L 3.5-5.2 chloride, serum [...] 0.30 mg/dL 0.00-1.00 cholesterol, serum 111 mg/dL 269-036 2200/07/28 triglyceride, serum, fasting 177 mg/dL 30-200 HDL [...] Panel - Chemistry cholesterol, serum 124 mg/dL 526-289 0607/01/12 triglyceride, serum, fasting 135 mg/dL 30-200 HDL cholesterol, serum 41 mg/dL 32-96 LDL cholesterol, serum 56 mg/dL 0-130 sodium, serum 140 mmol/L 249-688 5348/01/12 carbon dioxide, venous blood 27.7 mmol/L 21.0-32.0 potassium, serum 4.5 mmol/L 3.5-5.2 chloride, serum 104 mmol/L 98-107 blood glucose 139 mg/dL 65-110 urea nitrogen, blood 16 mg/dL 7-18 alanine aminotransferase (SGPT), serum 32 U/L 12-78 aspartate aminotransferase (SGOT), serum 25 U/L 15-37 calcium, serum 9.1 mg/dL 8.5-10.1 bilirubin, serum, total 0.50 mg/dL 0.00-1.00 Encounters Code Encounter Date Provider Facility CPT-56218 Level 4 Est. Patient 14:06:04 WARD SUPERVISOR Tu Landeros MD [facility] CPT-44911 Level 3 Est. Patient 14:05:18 WARD SUPERVISOR Tu Landeros MD [facility] CPT-93604 Level 3 Est. Patient 10:06:54 WARD SUPERVISOR Miranda Suresh APRN [facility] CPT-88828 Level 4 Est. Patient 13:50:18 WARD SUPERVISOR Tu Landeros MD [facility] CPT-68356 Level 3 Est. Patient 10:30:04 CDT Tu Landeros MD [facility] CPT-82113 Level 4 Est. Patient 11:03:38 CDT Tu Landeros MD [facility] CPT-58289 Level 3 Est. Patient 10:20:44 CDT Fab Morales DO [facility] CPT-56937 Level 4 Est. Patient 14:38:57 CDT Tu Landeros MD [facility] CPT-35446 Level 4 Est. Patient 14:27:39 WARD SUPERVISOR Tu Landeros MD [facility] CPT-86227 Level 4 Est. Patient 09:45:25 CDT Tu Landeros MD [facility] CPT-78227 Level 4 Est. Patient 09:05:20 WARD SUPERVISOR Tu Landeros MD [facility] CPT-00932 Level 4 Est. Patient 14:09:06 CDT Tu Landeros MD [facility] CPT-96913 Level 3 Est. Patient 13:36:54 CDT Tu Landeros MD [facility] CPT-60778 Level 3 Est. Patient 08:59:14 CDT Tu Landeros MD [facility] CPT-68003 Level 3 Est. Patient 13:48:35 CDT Fab Morales DO [facility] CPT-59095 Level 4 Est. Patient 10:05:48 CDT Tu Landeros MD [facility] CPT-35837 Level 3 Est. Patient 13:38:42 CDT Marek BANKS [facility] CPT-63225 Level 5 Est. Patient 08:08:39 CDT Jerrica FRANCIS [facility] CPT-82533 Level 4 Est. Patient 14:23:38 CDT Tu Landeros MD [facility] CPT-55868 Level 3 Est. Patient 11:44:04 CDT Tu Landeros MD [facility] CPT-68748 Level 3 Est. Patient 11:03:20 WARD SUPERVISOR Tu Landeros MD [facility] CPT-07745 Level 3 Est. Patient 11:03:14 WARD SUPERVISOR Tu Landeros MD [facility] CPT-73988 Level 3 Est. Patient 12:42:49 CDT Tu Landeros MD [facility] CPT-80381 Level 3 Est. Patient 11:52:06 CDT Tu Landeros MD [facility] CPT-33832 Level 3 Est. Patient 13:58:11 CDT Tu Landeros MD [facility] CPT-97033 Level 3 Est. Patient 17:50:07 CDT Fab Morales DO [facility] CPT-56609 Level 3 Est. Patient 12:06:29 CDT Elvira Cervantes MD [facility] CPT-60522 Level 3 Est. Patient 15:50:32 CDT Tu Landeros MD [facility] CPT-74029 Level 4 Est. Patient 16:08:29 CDT Tu Landeros MD [facility] CPT-66793 Level 3 Est. Patient 16:04:19 CDT Tu Landeros MD [facility] CPT-22797 Level 3 Est. Patient 11:22:30 WARD SUPERVISOR Tu Landeros MD [facility] CPT-51965 Level 4 Est. Patient 16:24:02 WARD SUPERVISOR Tu Landeros MD [facility] CPT-41602 Level 3 Est. Patient 17:21:23 WARD SUPERVISOR Tu Landeros MD [facility] Procedures Code Procedure Name Date Entry Date Standard Description CPT-71774 Breathing Tx 10:06:54 WARD SUPERVISOR CPT-53667 Postop F/U Visit 10:02:45 CDT CPT-LR Lesion Removal 09:02:56 CDT CPT-JTINJ Asp/Joint Injection 15:51:27 WARD SUPERVISOR CPT-OV Office Visit 15:52:02 WARD SUPERVISOR CPT-OV Office Visit 15:45:11 CDT CPT-000 Give Zostavax 14:09:06 CDT CPT-95643 Administration single or combination vaccine inc oral 15 :19:04 CDT CPT-09658 Zoster Vaccine (Zostavax) 15:19:04 CDT CPT-34128 Administration single or combination vaccine inc oral 20 :51:03 CDT CPT-90783 Influenza split virus > age 3 20:51:03 CDT CPT-47710 No Charge Offi Visit 14:52:03 CDT CPT-OV Office Visit 14:57:43 CDT CPT-OV Office Visit 15:22:32 CDT CPT-94793 Administration single or combination vaccine inc oral 11 :33:15 CDT CPT-15140 Influenza split virus > age 3 11:33:15 CDT
[2018-04-25] MEDS ORDERED: MIDAZOLAM 5 MG/5 ML (VERSED) VIAL ONE (13:13)
[2018-04-25] MEDS ORDERED: fentaNYL INJECTION 100 MCG/2 ML AMP ONE (13:13)
--- OUTSIDE RECORDS SUMMARY | 2018-04-25 13:13 | XMS REPORT | Clinical Summary ---
Author Author Admin, SACHI Organization [employer] Address Unknown Phone Unavailable Allergies, Adverse Reactions, Alerts Allergy Name Reaction Description Start Date Severity Status Provider DANIELLE migraine h/a Critical Active Luisa HU migraine h/a Moderate No Longer Active Tu Landeros MD TRICOR rash, trouble breathing Critical Active Tu Landeros MD SULINDAC Critical Active Tu Landeros MD DOXYCYCLINE Critical Active Tu Lnaderos MD KEFLEX Critical Active Tu Landeros MD [...] paroxysmal positional vertigo HYPERTENSION 401.1 Inactive Tu Landerso MD Benign essential hypertension Hypertension 401.9 Inactive [...] site PRESSURE ULCER UNSPECIFIED SITE 707.00 Resolved uT Landeros MD Pressure ulcer, unspecified site LOCALIZED [...] MUSCLE SPASM ICD-728.85 Inactive Tu Landeros MD INSOMNIA, PERSISTENT ICD-307.42 Inactive Tu Landeros MD SHOULDER PAIN, LEFT [...] wall, anterior, complicated ICD-879.3 Tessa Landeros MD Ear pain, bilateral ICD-388.70 Tessa Landeros MD Sebaceous cyst ICD-706.2 Tessa Landeros MD Upper respiratory infection, viral ICD-465.9 Tessa Landeros MD Sinusitis - acute ICD-461.9 Tessa Landeros MD Leg pain, left ICD-729.5 Tessa Landeros MD Vision impairment, both eyes, impairment level not further specified ICD- 369.20 Tessa Landeros MD Hot flashes ICD-627.2 Tessa Landeros MD Shoulder pain, right ICD-719.41 Tessa Landeros MD Osteoarthritis ICD-715.90 Tessa Landeros MD Pain in unspecified foot ICD-729.5 Tessa Landeros MD Medication List Medication Instructions Start Date Stop Date Generic Name NDC Status Provider Patient Instruction DICLOFENAC SODIUM 75 MG ORAL TBEC 1 po BID PRN Pain DICLOFENAC SODIUM 72409133439 Active Tu Landeros MD Active GABAPENTIN 100 MG CAPS 1 po TID GABAPENTIN 11015212390 Active Tu Landeros MD Active DICLOFENAC SODIUM 50 MG ORAL TBEC 1 po BID PRN Pain DICLOFENAC SODIUM 20496301793 No Longer Active Tu Landeros MD Active CYCLOBENZAPRINE HCL 10 MG ORAL TABS 1 po TID PRN Muscle Spasm CYCLOBENZAPRINE HCL 92241261623 No Longer Active Tu Landeros MD Active INVOKANA 100 MG ORAL TABS 1 po qd CANAGLIFLOZIN 68787551683 Active Tu Landeros MD Active GLIPIZIDE 5 MG ORAL TABS 1 po qd GLIPIZIDE 34878627755 No Longer Active Tu Landeros MD Active VENLAFAXINE HCL 75 MG ORAL TABS 1 po BID VENLAFAXINE HCL 16255194625 Active Tu Landeros MD Active GLIMEPIRIDE 1 MG ORAL TABS 1 po qd GLIMEPIRIDE 17608420511 No Longer Active Tu Landeros MD Active TRUE METRIX BLOOD GLUCOSE TEST INVITR STRP Test blood sugar BID Dx: E11.9 GLUCOSE BLOOD 86855127554 Active Tu Landeros MD Active TRUE METRIX AIR GLUCOSE METER W/DEVICE KIT Test blood glucose BID Dx: E11.9 BLOOD GLUCOSE MONITORING SUPPL 42006905416 Active Tu Landeros MD Active TRUETEST TEST INVITR STRP test blood sugar twice daily. DX 250.0 GLUCOSE BLOOD 83304287475 No Longer Active Mirna Stanley LPN Active TRUEDRAW LANCING DEVICE MISC test blood sugar twice daily dx: 250.00 LANCET DEVICES 61680812259 No Longer Active Mirna Stanley LPN Active ENALAPRIL MALEATE 20 MG TABS 2 po qd ENALAPRIL MALEATE 93160303410 Active Tu Landeros MD Active SUPER B COMPLEX/VITAMIN C TABS 1 qd B COMPLEX-C 07547548967 No Longer Active Tu Landeros MD Active ASPIRIN EC 81 MG ORAL TBEC 1 po qd ASPIRIN 81613993204 Active Tu Landeros MD Active GLUCOSAMINE 500 MG TABS 2 po qd GLUCOSAMINE Active Tu Landeros MD Active SIMVASTATIN 40 MG TABS 0.5 po qHS SIMVASTATIN 85497849171 Active Tu Landeros MD Active FISH OIL 1000 MG CAPS 1 po qd OMEGA-3 FATTY ACIDS 51637484092 Active Tu Landeros MD Active METFORMIN HCL 1000 MG TABS 1 po BID METFORMIN HCL 99300336215 Active Tu Landeros MD Active KLOR-CON 10 10 MEQ CR-TABS 2 po qd POTASSIUM CHLORIDE 63555757939 Active Tu Landeros MD Active FUROSEMIDE 40 MG TAB 1 po qd FUROSEMIDE 83030214368 Active Tu Landeros MD Active REQUIP 2 MG ORAL TABS 1 po qHS PRN Restless legs ROPINIROLE HCL 50482190410 Active Tu Landeros MD Active REQUIP 2 MG TABS Take one tablet at bedtime prn ROPINIROLE HCL 91288627976 No Longer Active Tu Landeros MD Active VENTOLIN HFA 108 (90 BASE) MCG/ACT AERS 1-2 puffs every 4 hours if needed for cough/congestion ALBUTEROL SULFATE 07944898963 No Longer Active Ambika Aden APRN Active ZITHROMAX 250 MG TAB 2 po today, then 1 po q days 2-5 AZITHROMYCIN 23491743964 No Longer Active Miranda Suresh APRN Active FLONASE 50 MCG/ACT SUSP 1 spray each nostril twice daily until bottle empty FLUTICASONE PROPIONATE 92362519914 No Longer Active Tu Landeros MD Active COLACE 100 MG CAP 1 po BID PRN Constipation DOCUSATE SODIUM 89698745538 Active Tu Landeros MD Active TRUERESULT BLOOD GLUCOSE W/DEVICE KIT test blood sugar twice daily dx 250.00 BLOOD GLUCOSE MONITORING SUPPL 69996472516 No Longer Active Tu Landeros MD Active TRUEDRAW LANCING DEVICE MISC Test twice a day dx 250.0 LANCET DEVICES 80606937185 No Longer Active Tu Landeros MD Active PREDNISONE 20 MG TAB 2 tablets once daily for 2 days, then 1 tablet once daily for 2 days PREDNISONE 43667458812 No Longer Active Tu Landeros MD Active DICLOFENAC SODIUM 50 MG TBEC 1 tablet by mouth three times a day as needed DICLOFENAC SODIUM 16765718830 No Longer Active Fab Morales DO Active EMBRACE BLOOD GLUCOSE TEST STRP test blood sugar twice daily DX 250.0 2014 GLUCOSE BLOOD 05897211984 No Longer Active Tu Landeros MD Active TRUETEST TEST STRP test blood sugar three times daily dx: 250.00 GLUCOSE BLOOD 69836849703 No Longer Active Suzebianca Nicole RMA Active TRUERESULT BLOOD GLUCOSE W/DEVICE KIT use to test blood sugar tid dx: 250.00 BLOOD GLUCOSE MONITORING SUPPL 37776401262 No Longer Active Suze Corey RMA Active ALIGN 4 MG CAPS 1 tid PROBIOTIC PRODUCT 60209412743 No Longer Active Shaun Sy MD Active CIPRO 500 MG TABS 1 bid x 14 days start 09-28-13 CIPROFLOXACIN HCL 33450740166 No Longer Active Shuan Sy MD Active TRAMADOL HCL 50 MG TABS 1-2 tablets every 6 hours as needed for pain TRAMADOL HCL 55121132204 Active Tu Landeros MD Active HYDROCODONE-ACETAMINOPHEN 5-325 MG TABS 1 tab by mouth every 6 hours as needed for pain HYDROCODONE-ACETAMINOPHEN 89648685195 No Longer Active Tu Landeros MD Active OMEPRAZOLE 20 MG CPDR 1 po q a.m. OMEPRAZOLE 57965106030 Active Fab Morales DO Active GABAPENTIN 100 MG CAPS 1 po bid GABAPENTIN 13565135466 No Longer Active Tu Landeros MD Active B-12 100 MCG TABS Take one by mouth daily CYANOCOBALAMIN 10343420658 No Longer Active Tu Landeros MD Active BACTRIM DS 800-160 MG TABS 1 bid x 14 day start 09-28-13 SULFAMETHOXAZOLE-TRIMETHOPRIM 00235502689 No Longer Active Tu Landeros MD Active CARVEDILOL 12.5 MG TABS 1 po BID CARVEDILOL 26315610866 Active Tu Landeros MD Active TRILIPIX 135 MG CPDR 1 q hs CHOLINE FENOFIBRATE 74973032765 Active Tu Landeros MD Active FENOFIBRATE 145 MG TABS 1 po qd FENOFIBRATE 74014850629 No Longer Active JASPREET Perez Active OMEPRAZOLE 20 MG TBEC 1 PO 30 MIN BEFORE 1ST MEAL OMEPRAZOLE 62687300321 No Longer Active JASPREET Perez Active SIMVASTATIN 40 MG TABS Take one by mouth daily SIMVASTATIN 88195707258 No Longer Active JASPREET Perez Active VENLAFAXINE HCL 75 MG TABS 1 po BID VENLAFAXINE HCL 67191112557 No Longer Active JASPREET Perez Active CIPRO 500 MG TAB 1 tablet by mouth twice daily CIPROFLOXACIN HCL 84296813494 No Longer Active Tu Landeros MD Active VENLAFAXINE HCL 37.5 MG TABS 1 po BID VENLAFAXINE HCL 27380448281 No Longer Active Suzebianca VOGEL Active LAMISIL 250 MG TAB 1 po qd TERBINAFINE HCL 29872709832 No Longer Active Tu Landeros MD Active LORTAB 5 5-500 MG TABS 1/2 to 1 tablet by mouth every 4 hours as needed for pain HYDROCODONE-ACETAMINOPHEN 71580992418 No Longer Active Tu Landeros MD Active HYDROCODONE-ACETAMINOPHEN 5-500 MG TABS take one po Q 4-6 hours prn HYDROCODONE-ACETAMINOPHEN 41236997609 No Longer Active Tu Landeros MD Active BACTRIM DS 800-160 MG TABS 1 po BID x 7 days SULFAMETHOXAZOLE-TRIMETHOPRIM 44053171874 No Longer Active Tu Landeros MD Active VENLAFAXINE HCL 75 MG TABS 1 po BID VENLAFAXINE HCL 53826695685 No Longer Active Elvira Cervantes MD PhD Active TRAMADOL HCL 50 MG TABS 1 tablets every 6 hours as needed for pain TRAMADOL HCL 23972736764 No Longer Active Tu Landeros MD Active ACCU-CHEK FASTCLIX LANCETS MISC Use to check bloodsugar three times daily as needed LANCETS 11378890650 No Longer Active Tu Landeros MD Active ACCU-CHEK KEYONA PLUS STRP Use for testing bloodsugars three times daily as needed GLUCOSE BLOOD 58374121965 No Longer Active Tu Landeros MD Active ACCU-CHEK KEYONA PLUS W/DEVICE KIT Use for testing bloodsugars three times daily as needed BLOOD GLUCOSE MONITORING SUPPL 95752158384 No Longer Active Tu Landeros MD Active SPIRONOLACTONE 25 MG TAB 0.5 tablet by mouth daily SPIRONOLACTONE 54580574581 No Longer Active Tu Landeros MD Active ALPRAZOLAM 0.5 MG TABS 1 tab every 6hrs as needed ALPRAZOLAM 54860188990 No Longer Active Tu Landeros MD Active AUGMENTIN 875-125 MG TAB 1 tab by mouth twice daily with food AMOXICILLIN-POT CLAVULANATE 26127384349 No Longer Active Tu Landeros MD Active PREDNISONE 20 MG TAB 2 tabs daily for 3 days, 1 tab daily for 3 days, 1/2 tab daily for 2 days PREDNISONE 38060006029 No Longer Active Tu Landeros MD Active XANAX 0.5 MG TABS 1 tablet every 6 hrs prn ALPRAZOLAM 64047987843 No Longer Active Tu Landeros MD Active PREDNISONE 20 MG TAB 2 tabs daily for 3 days, 1 tab daily for 3 days, 1/2 tab daily for 2 days PREDNISONE 39537563164 No Longer Active Tu Landeros MD Active TRIAMCINOLONE ACETONIDE 0.1 % OINT Apply to affected areas TID for up to 2 weeks TRIAMCINOLONE ACETONIDE 99430691074 No Longer Active Tu Landeros MD Active LORTAB 5 5-500 MG TABS 1/2 to 1 tablet by mouth every 4 hours as needed for pain HYDROCODONE-ACETAMINOPHEN 29789220723 No Longer Active Tu Landeros MD Active MULTIVITAMINS TABS Take one by mouth daily MULTIPLE VITAMIN 74294007543 No Longer Active Tu Landeros MD Active MELATONIN 5 MG TABS Take one by mouth daily MELATONIN 22024381885 No Longer Active Tu Landeros MD Active SOMA 350 MG TAB 1 po q 6 hours prn spasm CARISOPRODOL 89126611074 No Longer Active Tu Landeros MD Active MECLIZINE HCL 25 MG CHEW TAB 1 four times a day as needed for dizziness 08/05 MECLIZINE HCL 46377063197 No Longer Active Fab Morales DO Active ANGEL BREEZE 2 TEST DISK test tid prn GLUCOSE BLOOD 34895140858 No Longer Active Negra Scott RN Active REGLAN 10 MG TAB 1 po TID PRN Nausea METOCLOPRAMIDE HCL 73082166033 No Longer Active Tu Landeros MD Active METFORMIN HCL 500 MG TABS 1 PO BID METFORMIN HCL 23263093430 No Longer Active Tu Landeros MD Active AMBIEN 10 MG TAB 1 tab by mouth at bedtime as needed for sleep ZOLPIDEM TARTRATE 26010206944 No Longer Active Tu Landeros MD Active FLUOXETINE HCL 40 MG CAPS 1 po q day FLUOXETINE HCL 37686876106 No Longer Active Mayra Terry Active TRILIPIX 135 MG CPDR 1 po qd CHOLINE FENOFIBRATE 13691372318 No Longer Active Tu Landeros MD Active AMBIEN 10 MG TAB 1 tab by mouth at bedtime as needed for sleep AMBIEN 10 MG TAB 428574 ZOLPIDEM TARTRATE Inactive METFORMIN HCL 500 MG TABS 1 PO BID METFORMIN HCL 500 MG TABS 669162 METFORMIN HCL Inactive REGLAN 10 MG TAB 1 po TID PRN Nausea REGLAN 10 MG TAB 092720 METOCLOPRAMIDE HCL Inactive MECLIZINE HCL 25 MG CHEW TAB 1 four times a day as needed for dizziness 08/05 MECLIZINE HCL 25 MG CHEW TAB 355154 MECLIZINE HCL Inactive SOMA 350 MG TAB 1 po q 6 hours prn spasm SOMA 350 MG TAB 032040 CARISOPRODOL Inactive MELATONIN 5 MG TABS Take one by mouth daily MELATONIN 5 MG TABS 676498 MELATONIN Inactive MULTIVITAMINS TABS Take one by mouth daily MULTIVITAMINS TABS MULTIPLE VITAMIN Inactive LORTAB 5 5-500 MG TABS 1/2 to 1 tablet by mouth every 4 hours as needed for pain LORTAB 5 5-500 MG TABS 556420 HYDROCODONE- ACETAMINOPHEN Inactive XANAX 0.5 MG TABS 1 tablet every 6 hrs prn XANAX 0.5 MG TABS 938328 ALPRAZOLAM Inactive AUGMENTIN 875-125 MG TAB 1 tab by mouth twice daily with food AUGMENTIN 875-125 MG TAB 282556 AMOXICILLIN-POT CLAVULANATE Inactive ALPRAZOLAM 0.5 MG TABS 1 tab every 6hrs as needed ALPRAZOLAM 0.5 MG TABS 474247 ALPRAZOLAM Inactive SPIRONOLACTONE 25 MG TAB 0.5 tablet by mouth daily SPIRONOLACTONE 25 MG TAB 563770 SPIRONOLACTONE Inactive ACCU-CHEK KEYONA PLUS W/DEVICE KIT Use for testing bloodsugars three times daily as needed ACCU-CHEK KEYONA PLUS W/DEVICE KIT BLOOD GLUCOSE MONITORING SUPPL Inactive ACCU-CHEK KEYONA PLUS STRP Use for testing bloodsugars three times daily as needed ACCU-CHEK KEYONA PLUS STRP GLUCOSE BLOOD Inactive ACCU-CHEK FASTCLIX LANCETS MISC Use to check bloodsugar three times daily as needed ACCU-CHEK FASTCLIX LANCETS MISC 45543188403 LANCETS Inactive TRAMADOL HCL 50 MG TABS 1 tablets every 6 hours as needed for pain TRAMADOL HCL 50 MG TABS 858704 TRAMADOL HCL Inactive VENLAFAXINE HCL 75 MG TABS 1 po BID VENLAFAXINE HCL 75 MG TABS 033502 VENLAFAXINE HCL Inactive HYDROCODONE-ACETAMINOPHEN 5-500 MG TABS take one po Q 4-6 hours prn HYDROCODONE-ACETAMINOPHEN 5-500 MG TABS 233586 HYDROCODONE- ACETAMINOPHEN Inactive LORTAB 5 5-500 MG TABS 1/2 to 1 tablet by mouth every 4 hours as needed for pain LORTAB 5 5-500 MG TABS 572153 HYDROCODONE- ACETAMINOPHEN Inactive LAMISIL 250 MG TAB 1 po qd LAMISIL 250 MG TAB 718998 TERBINAFINE HCL Inactive VENLAFAXINE HCL 37.5 MG TABS 1 po BID VENLAFAXINE HCL 37.5 MG TABS 479432 VENLAFAXINE HCL Inactive CIPRO 500 MG TAB 1 tablet by mouth twice daily CIPRO 500 MG TAB 418852 CIPROFLOXACIN HCL Inactive VENLAFAXINE HCL 75 MG TABS 1 po BID VENLAFAXINE HCL 75 MG TABS 743396 VENLAFAXINE HCL Inactive SIMVASTATIN 40 MG TABS Take one by mouth daily SIMVASTATIN 40 MG TABS 391248 SIMVASTATIN Inactive OMEPRAZOLE 20 MG TBEC 1 PO 30 MIN BEFORE 1ST MEAL OMEPRAZOLE 20 MG TBEC 281225 OMEPRAZOLE Inactive FENOFIBRATE 145 MG TABS 1 po qd FENOFIBRATE 145 MG TABS 495877 FENOFIBRATE Inactive BACTRIM DS 800-160 MG TABS 1 bid x 14 day start 09-28-13 BACTRIM DS 800-160 MG TABS 019724 SULFAMETHOXAZOLE-TRIMETHOPRIM Inactive B-12 100 MCG TABS Take one by mouth daily B-12 100 MCG TABS CYANOCOBALAMIN Inactive GABAPENTIN 100 MG CAPS 1 po bid GABAPENTIN 100 MG CAPS 936418 GABAPENTIN Inactive HYDROCODONE-ACETAMINOPHEN 5-325 MG TABS 1 tab by mouth every 6 hours as needed for pain HYDROCODONE-ACETAMINOPHEN 5-325 MG TABS 240534 HYDROCODONE-ACETAMINOPHEN Inactive CIPRO 500 MG TABS 1 bid x 14 days start 09-28-13 CIPRO 500 MG TABS 024693 CIPROFLOXACIN HCL Inactive ALIGN 4 MG CAPS [...] as needed DICLOFENAC SODIUM 50 MG TBEC 944628 DICLOFENAC SODIUM Inactive PREDNISONE 20 MG TAB 2 tablets once daily for 2 days, then 1 tablet once daily for 2 days PREDNISONE 20 MG TAB 371518 PREDNISONE Inactive TRUEDRAW LANCING DEVICE MISC Test twice a day dx 250.0 TRUEDRAW LANCING DEVICE MISC LANCET DEVICES Inactive TRUERESULT BLOOD GLUCOSE W/DEVICE KIT test blood sugar twice daily dx 250.00 TRUERESULT BLOOD GLUCOSE W/DEVICE KIT BLOOD GLUCOSE MONITORING SUPPL Inactive FLONASE 50 MCG/ACT SUSP 1 spray each nostril twice daily until bottle empty FLONASE 50 MCG/ACT SUSP 8791036 FLUTICASONE PROPIONATE Inactive VENTOLIN HFA 108 (90 BASE) MCG/ACT AERS 1-2 puffs every 4 hours if needed for cough/congestion VENTOLIN HFA 108 (90 BASE) MCG/ACT AERS ALBUTEROL SULFATE Inactive REQUIP 2 MG TABS Take one tablet at bedtime prn REQUIP 2 MG TABS 943180 ROPINIROLE HCL Inactive SUPER B COMPLEX/VITAMIN C TABS 1 qd SUPER B COMPLEX/ VITAMIN C TABS 10600532972 B COMPLEX-C Inactive TRUEDRAW LANCING DEVICE MISC test blood sugar twice daily dx: 250.00 TRUEDRAW LANCING DEVICE MISC LANCET DEVICES Inactive TRUETEST TEST INVITR STRP test blood sugar twice daily. DX 250.0 TRUETEST TEST INVITR STRP GLUCOSE BLOOD Inactive CYCLOBENZAPRINE HCL 10 MG ORAL TABS 1 po TID PRN Muscle Spasm CYCLOBENZAPRINE HCL 10 MG ORAL TABS 240414 CYCLOBENZAPRINE HCL Inactive DICLOFENAC SODIUM 50 MG ORAL TBEC 1 po BID PRN Pain DICLOFENAC SODIUM 50 MG ORAL TBEC 660325 DICLOFENAC SODIUM Inactive TRIAMCINOLONE ACETONIDE 0.1 % OINT Apply to affected areas TID for up to 2 weeks TRIAMCINOLONE ACETONIDE 0.1 % OINT 3236415 TRIAMCINOLONE ACETONIDE Inactive PREDNISONE 20 MG TAB 2 tabs daily for 3 days, 1 tab daily for 3 days, 1/2 tab daily for 2 days PREDNISONE 20 MG TAB 622922 PREDNISONE Inactive PREDNISONE 20 MG TAB 2 tabs daily for 3 days, 1 tab daily for 3 days, 1/2 tab daily for 2 days PREDNISONE 20 MG TAB 652916 PREDNISONE Inactive BACTRIM DS 800-160 MG TABS 1 po BID x 7 days BACTRIM DS 800-160 MG TABS 057856 SULFAMETHOXAZOLE-TRIMETHOPRIM Inactive ZITHROMAX 250 MG TAB 2 po today, then 1 po q days 2-5 ZITHROMAX 250 MG TAB 258557 AZITHROMYCIN Inactive Advance Directives Directive Description Start Date DISCUSSED WITH PATIENT -- NO DECISION MADE Immunizations Vaccine Administration Date Value Standard Description Seasonal influenza vaccine, injectable, containing preservative, for > 3 years old (Afluria, FluLaval, Fluzone, Fluvirin, Fluarix, Agriflu(>=18 yo)) Fluzone (>3 yrs.) [[id number]] Influenza, seasonal, injectable influenza immunization (Flu Vax) has been administered 02/22/2012 influenza virus vaccine, unspecified formulation Seasonal influenza vaccine, injectable, containing preservative, for > 3 years old (Afluria, FluLaval, Fluzone, Fluvirin, Fluarix, Agriflu(>=18 yo)) Fluzone (>3 yrs.) [[id number]] Influenza, seasonal, injectable Vital Signs Date Name [...] 4.3-6.0 Lab Report: CBC, HGBA1C - Hematology mean corpuscular volume, RBC 90 fL 80-97 hematocrit, blood 41.2 % 36.0-46.0 mean corpuscular hemoglobin, RBC 29.9 pg 27.0-31.2 mean corpuscular hemoglobin concentration, RBC 33.3 G/DL % 31.8- 35.4 red blood cell distribution width 13.6 % 11.6-14.8 platelet count 279 10^3/MM^3 10*3/mm3 251-010 8534/01/10 hemoglobin, blood 13.7 g/dL 12.0-16.0 erythrocyte (RBC) count 4.58 10^6/MM^3 10*6/mm3 4.04-5.48 leukocyte count, blood 10.8 10^3/MM^3 10*3/mm3 4.6-10.2 Lab Report: Comp. Metabolic Panel, Lipid Panel, Magnesium - Chemistry sodium, serum 143 mmol/L 084-817 1563/01/10 carbon dioxide, venous blood 28.0 mmol/L 21.0-32.0 potassium, serum 4.5 mmol/L 3.5-5.2 chloride, serum 104 mmol/L 98-107 blood glucose 158 mg/dL 65-110 urea nitrogen, blood 23 mg/dL 7-18 creatinine, serum 1.06 mg/dL 0.55-1.30 alanine aminotransferase (SGPT), serum 42 U/L 12-78 aspartate aminotransferase (SGOT), serum 32 U/L 15-37 calcium, serum 9.3 mg/dL 8.5-10.1 bilirubin, serum, total 0.20 mg/dL 0.00-1.00 cholesterol, serum 177 mg/dL 267-104 0484/01/10 triglyceride, serum, fasting 320 mg/dL 30-200 HDL cholesterol, serum 46 mg/dL 32-96 LDL cholesterol, serum 67 mg/dL 0-130 Lab Report: COMPREHENSIVE METABOLIC PANEL, LIPID PANEL, HEMOGLOBIN A1c - Chemistry cholesterol, serum 135 mg/dL 454-495 9246/05/17 HDL cholesterol, serum 41 mg/dL > OR=46 [...] <30 Encounters Code Encounter Date Provider Facility CPT-01098 Level 3 Est. Patient 14:20:36 CDT Tu Landeros MD [facility] CPT-96972 Level 4 Est. Patient 14:28:34 CDT Tu Landeros MD [facility] CPT-47519 Level 3 Est. Patient 13:33:09 CDT Tu Landeros MD [facility] CPT-90464 Level 4 Est. Patient 14:29:21 CDT Tu Landeros MD [facility] CPT-73441 Level 4 Est. Patient 09:08:17 RN CLINICAL TRIALS Tu Landeros MD [facility] CPT-79501 Level 4 Est. Patient 14:40:19 CDT Tu Landeros MD [facility] CPT-41298 Level 4 Est. Patient 14:06:04 RN CLINICAL TRIALS Tu Landeros MD [facility] CPT-56593 Level 3 Est. Patient 14:05:18 RN CLINICAL TRIALS Tu Landeros MD [facility] CPT-46335 Level 3 Est. Patient 10:06:54 RN CLINICAL TRIALS Miranda Suresh APRN [facility] CPT-91094 Level 4 Est. Patient 13:50:18 RN CLINICAL TRIALS Tu Landeros MD [facility] CPT-07704 Level 3 Est. Patient 10:30:04 CDT Tu Landeros MD [facility] CPT-57685 Level 4 Est. Patient 11:03:38 CDT Tu Landeros MD [facility] CPT-88093 Level 3 Est. Patient 10:20:44 CDT Fab Morales DO [facility] CPT-28684 Level 4 Est. Patient 14:38:57 CDT Tu Landeros MD [facility] CPT-21435 Level 4 Est. Patient 14:27:39 RN CLINICAL TRIALS Tu Landeros MD [facility] CPT-28317 Level 4 Est. Patient 09:45:25 CDT Tu Landeros MD [facility] CPT-39425 Level 4 Est. Patient 09:05:20 RN CLINICAL TRIALS Tu Landeros MD [facility] CPT-34665 Level 4 Est. Patient 14:09:06 CDT Tu Landeros MD [facility] CPT-64808 Level 3 Est. Patient 13:36:54 CDT Tu Landeros MD [facility] CPT-05641 Level 3 Est. Patient 08:59:14 CDT Tu aLnderos MD [facility] CPT-53317 Level 3 Est. Patient 13:48:35 CDT Fab Morales DO [facility] CPT-00017 Level 4 Est. Patient 10:05:48 CDT Tu Landeros MD [facility] CPT-21337 Level 3 Est. Patient 13:38:42 CDT Marek BANKS [facility] CPT-38141 Level 5 Est. Patient 08:08:39 CDT Jerrica FRANCIS [facility] CPT-87965 Level 4 Est. Patient 14:23:38 CDT Tu Landeros MD [facility] CPT-18858 Level 3 Est. Patient 11:44:04 CDT Tu Landeros MD [facility] CPT-46259 Level 3 Est. Patient 11:03:20 RN CLINICAL TRIALS Tu Landeros MD [facility] CPT-30485 Level 3 Est. Patient 11:03:14 RN CLINICAL TRIALS Tu Landeros MD [facility] CPT-47476 Level 3 Est. Patient 12:42:49 CDT Tu Landeros MD [facility] CPT-20373 Level 3 Est. Patient 11:52:06 CDT Tu Landeros MD [facility] CPT-52456 Level 3 Est. Patient 13:58:11 CDT Tu Landeros MD [facility] CPT-18908 Level 3 Est. Patient 17:50:07 CDT Fab Morales DO [facility] CPT-27297 Level 3 Est. Patient 12:06:29 CDT Elvira Cervantes MD [facility] CPT-02279 Level 3 Est. Patient 15:50:32 CDT Tu Landeros MD [facility] CPT-95967 Level 4 Est. Patient 16:08:29 CDT Tu Landeros MD [facility] CPT-13832 Level 3 Est. Patient 16:04:19 CDT Tu Lnaderos MD [facility] CPT-86766 Level 3 Est. Patient 11:22:30 RN CLINICAL TRIALS Tu Landeros MD [facility] CPT-81017 Level 4 Est. Patient 16:24:02 RN CLINICAL TRIALS Tu Landeros MD [facility] CPT-70192 Level 3 Est. Patient 17:21:23 RN CLINICAL TRIALS Tu Landeros MD [facility] Procedures Code Procedure Name Date Entry Date Standard Description CPT-11955 Shoulder, right, comp min 2V - XRAY USE ONLY 13:50:22 CDT CPT-G0009 Administration of Pneumococcal Vaccine 15:08:26 CDT CPT-74326 Prevnar 13 Intramuscular Suspension 15:08:26 CDT 10/08 CPT-G0439 [facility] Annual Wellness Exam 14:29:22 CDT CPT-95307 Venipuncture Draw Fee 13:15:35 CDT CPT-17312 Magnesium - LAB USE ONLY 11:14:20 RN CLINICAL TRIALS CPT-18434 Lipid - LAB USE ONLY 11:14:20 RN CLINICAL TRIALS CPT-70543 HGBA1C - LAB USE ONLY 11:14:20 RN CLINICAL TRIALS CPT-17268 CMP - LAB USE ONLY 11:14:19 RN CLINICAL TRIALS CPT-95168 CBC - LAB USE ONLY 11:14:19 RN CLINICAL TRIALS CPT-47748 Venipuncture Draw Fee 11:14:18 RN CLINICAL TRIALS CPT-93703 First Vx - Ix admin for Medicare patients 16:46:52 CDT CPT-02420 Fluzone Preservative Free Intramuscular Suspension 16:46 :51 CDT CPT-70857 CBC - LAB USE ONLY 17:14:46 CDT CPT-04785 HGBA1C - LAB USE ONLY 17:14:46 CDT CPT-62136 Venipuncture Draw Fee 17:14:46 CDT CPT-G0438 Initial Annual Wellness Exam 14:13:04 CDT CPT-39020 Breathing Tx 10:06:54 RN CLINICAL TRIALS CPT-43553 Postop F/U Visit 10:02:45 CDT CPT-LR Lesion Removal 09:02:56 CDT CPT-JTINJ Asp/Joint Injection 15:51:27 RN CLINICAL TRIALS CPT-OV Office Visit 15:52:02 RN CLINICAL TRIALS CPT-OV Office Visit 15:45:11 CDT CPT-000 Give Zostavax 14:09:06 CDT CPT-71118 Administration single or combination vaccine inc oral 15 :19:04 CDT CPT-50192 Zoster Vaccine (Zostavax) 15:19:04 CDT CPT-31237 Administration single or combination vaccine inc oral 20 :51:03 CDT CPT-11005 Influenza split virus > age 3 20:51:03 CDT CPT-04569 No Charge Offi Visit 14:52:03 CDT CPT-OV Office Visit 14:57:43 CDT CPT-OV Office Visit 15:22:32 CDT CPT-31447 Administration single or combination vaccine inc oral 11 :33:15 CDT CPT-25949 Influenza split virus > age 1 11:33:15 CDT
--- OUTSIDE RECORDS SUMMARY | 2018-04-25 13:15 | XMS REPORT | Clinical Summary ---
Author Author Admin, SACHI Organization [employer] Address Unknown Phone Unavailable Allergies, Adverse Reactions, [...] Inactive Tu Landeros MD MUSCLE SPASM ICD-728.85 Tessa Landeros MD SCIATICA ICD-724.3 Tessa Landeros MD 2012 SHOULDER PAIN, LEFT ICD-719.41 Tessa Landeros MD PARESTHESIA ICD-782.0 Tessa Landeros MD RASH AND OTHER NONSPECIFIC SKIN ERUPTION ICD-782.1 Inactive Tu Landeros MD FATIGUE ICD-780.79 Tessa Landeros MD 2012 CARPAL TUNNEL SYNDROME ICD-354.0 Tessa Landeros MD ARTHRITIS ICD-716.90 Tessa Landeros MD [...] pain, left ICD-729.5 Inactive Tu Landeros MD Medication List Medication Instructions Start Date Stop Date Generic Name NDC Status Provider Patient Instruction VENLAFAXINE HCL 37.5 MG TABS 1 po BID VENLAFAXINE HCL 50195523867 Active Tu Landeros MD Active GABAPENTIN 100 MG CAPS 1 po BID GABAPENTIN 12287976960 Active José Luis Becerra MD Active REQUIP 2 MG TABS Take one tablet at bedtime prn ROPINIROLE HCL 63564176331 No Longer Active Tu Landeros MD Active VENTOLIN HFA 108 (90 BASE) MCG/ACT AERS 1-2 puffs every 4 hours if needed for cough/congestion ALBUTEROL SULFATE 34798647265 No Longer Active Ambkia Aden APRN Active ZITHROMAX 250 MG TAB 2 po today, then 1 po q days 2-5 AZITHROMYCIN 64826786594 No Longer Active Miranda Suresh APRN Active METFORMIN HCL 1000 MG TABS 1 tablet by mouth twice daily METFORMIN HCL 60732515500 Active Tu Landeros MD Active FLONASE 50 MCG/ACT SUSP 1 spray each nostril twice daily until bottle empty FLUTICASONE PROPIONATE 82109523473 No Longer Active Tu Landeros MD Active COLACE 100 MG CAP 1 po BID PRN Constipation DOCUSATE SODIUM 92301078246 Active Tu Landeros MD Active SIMVASTATIN 40 MG TABS 0.5 tab daily at bedtime SIMVASTATIN 69497524552 Active Tu Landeros MD Active TRUERESULT BLOOD GLUCOSE W/DEVICE KIT test blood sugar twice daily dx 250.00 BLOOD GLUCOSE MONITORING SUPPL 71083619169 No Longer Active Tu Landeros MD Active TRUEDRAW LANCING DEVICE MISC Test twice a day dx 250.0 LANCET DEVICES 74500292091 No Longer Active Tu Landeros MD Active PREDNISONE 20 MG TAB 2 tablets once daily for 2 days, then 1 tablet once daily for 2 days PREDNISONE 83493987421 No Longer Active Tu Landeros MD Active DICLOFENAC SODIUM 50 MG TBEC 1 tablet by mouth three times a day as needed DICLOFENAC SODIUM 01631807192 No Longer Active Fab Morales DO Active TRUEDRAW LANCING DEVICE MISC test blood sugar twice daily dx: 250.00 LANCET DEVICES 14301535570 Active Tu Landeros MD Active TRUETEST TEST INVITR STRP test blood sugar twice daily. DX 250.0 GLUCOSE BLOOD 96708603558 Active Tu Landeros MD Active EMBRACE BLOOD GLUCOSE TEST STRP test blood sugar twice daily DX 250.0 2014 GLUCOSE BLOOD 09879134814 No Longer Active Tu Landeros MD Active TRUETEST TEST STRP test blood sugar three times daily dx: 250.00 GLUCOSE BLOOD 01138577094 No Longer Active Suze Corey VOGEL Active TRUERESULT BLOOD GLUCOSE W/DEVICE KIT use to test blood sugar tid dx: 250.00 BLOOD GLUCOSE MONITORING SUPPL 47330922488 No Longer Active Suze Corey RMA Active ALIGN 4 MG CAPS 1 tid PROBIOTIC PRODUCT 00783192321 No Longer Active Shaun Sy MD Active CIPRO 500 MG TABS 1 bid x 14 days start 09-28-13 CIPROFLOXACIN HCL 90417739396 No Longer Active Shaun Sy MD Active TRAMADOL HCL 50 MG TABS 1-2 tablets every 6 hours as needed for pain TRAMADOL HCL 76810276681 Active Tu Landeros MD Active HYDROCODONE-ACETAMINOPHEN 5-325 MG TABS 1 tab by mouth every 6 hours as needed for pain HYDROCODONE-ACETAMINOPHEN 08905142817 No Longer Active Tu Landeros MD Active OMEPRAZOLE 20 MG CPDR 1 po q a.m. OMEPRAZOLE 58489299692 Active Tu Landeros MD Active GABAPENTIN 100 MG CAPS 1 po bid GABAPENTIN 39208325922 No Longer Active Tu Landeros MD Active B-12 100 MCG TABS Take one by mouth daily CYANOCOBALAMIN 97539238788 No Longer Active Tu Landeros MD Active BACTRIM DS 800-160 MG TABS 1 bid x 14 day start 09-28-13 SULFAMETHOXAZOLE-TRIMETHOPRIM 48437294262 No Longer Active Tu Landeros MD Active CARVEDILOL 12.5 MG TABS 1 po BID CARVEDILOL 99776772206 Active Tu Landeros MD Active SUPER B COMPLEX/VITAMIN C TABS 1 qd B COMPLEX-C 11432059228 Active JASPREET Perez Active TRILIPIX 135 MG CPDR 1 q hs CHOLINE FENOFIBRATE 01332908361 Active Tu Landeros MD Active FENOFIBRATE 145 MG TABS 1 po qd FENOFIBRATE 36256302673 No Longer Active JASPREET Perez Active OMEPRAZOLE 20 MG TBEC 1 PO 30 MIN BEFORE 1ST MEAL OMEPRAZOLE 03931731009 No Longer Active JASPREET Perez Active SIMVASTATIN 40 MG TABS Take one by mouth daily SIMVASTATIN 83889613156 No Longer Active JASPREET Perez Active VENLAFAXINE HCL 75 MG TABS 1 po BID VENLAFAXINE HCL 80799933249 No Longer Active JASPREET Perez Active CIPRO 500 MG TAB 1 tablet by mouth twice daily CIPROFLOXACIN HCL 52919076580 No Longer Active Tu Landeros MD Active VENLAFAXINE HCL 37.5 MG TABS 1 po BID VENLAFAXINE HCL 83271544577 No Longer Active Suze Nicole RMA Active LAMISIL 250 MG TAB 1 po qd TERBINAFINE HCL 77739992860 No Longer Active Tu Landeros MD Active LORTAB 5 5-500 MG TABS 1/2 to 1 tablet by mouth every 4 hours as needed for pain HYDROCODONE-ACETAMINOPHEN 55513429948 No Longer Active Tu Landeros MD Active ENALAPRIL MALEATE 20 MG TABS 1.5 po qd ENALAPRIL MALEATE 37802186263 Active Tu Landeros MD Active HYDROCODONE-ACETAMINOPHEN 5-500 MG TABS take one po Q 4-6 hours prn HYDROCODONE-ACETAMINOPHEN 30569954888 No Longer Active Tu Landeros MD Active BACTRIM DS 800-160 MG TABS 1 po BID x 7 days SULFAMETHOXAZOLE-TRIMETHOPRIM 84571239062 No Longer Active Tu Landeros MD Active VENLAFAXINE HCL 75 MG TABS 1 po BID VENLAFAXINE HCL 13167101962 No Longer Active Elvira Cervantes MD PhD Active TRAMADOL HCL 50 MG TABS 1 tablets every 6 hours as needed for pain TRAMADOL HCL 15844188076 No Longer Active Tu Landeros MD Active ACCU-CHEK FASTCLIX LANCETS MISC Use to check bloodsugar three times daily as needed LANCETS 41362764973 No Longer Active Tu Landeros MD Active ACCU-CHEK KEYONA PLUS STRP Use for testing bloodsugars three times daily as needed GLUCOSE BLOOD 10807593930 No Longer Active Tu Landeros MD Active ACCU-CHEK KEYONA PLUS W/DEVICE KIT Use for testing bloodsugars three times daily as needed BLOOD GLUCOSE MONITORING SUPPL 82578899416 No Longer Active Tu Landeros MD Active SPIRONOLACTONE 25 MG TAB 0.5 tablet by mouth daily SPIRONOLACTONE 98333976834 No Longer Active Tu Landeros MD Active ALPRAZOLAM 0.5 MG TABS 1 tab every 6hrs as needed ALPRAZOLAM 32953588878 No Longer Active Tu Landeros MD Active AUGMENTIN 875-125 MG TAB 1 tab by mouth twice daily with food AMOXICILLIN-POT CLAVULANATE 25983347595 No Longer Active Tu Landeros MD Active PREDNISONE 20 MG TAB 2 tabs daily for 3 days, 1 tab daily for 3 days, 1/2 tab daily for 2 days PREDNISONE 65772182663 No Longer Active Tu Landeros MD Active XANAX 0.5 MG TABS 1 tablet every 6 hrs prn ALPRAZOLAM 02118608633 No Longer Active Tu Landeros MD Active PREDNISONE 20 MG TAB 2 tabs daily for 3 days, 1 tab daily for 3 days, 1/2 tab daily for 2 days PREDNISONE 42287018565 No Longer Active Tu Landeros MD Active TRIAMCINOLONE ACETONIDE 0.1 % OINT Apply to affected areas TID for up to 2 weeks TRIAMCINOLONE ACETONIDE 14967643781 No Longer Active Tu Landeros MD Active LORTAB 5 5-500 MG TABS 1/2 to 1 tablet by mouth every 4 hours as needed for pain HYDROCODONE-ACETAMINOPHEN 80635058284 No Longer Active Tu Landeros MD Active MULTIVITAMINS TABS Take one by mouth daily MULTIPLE VITAMIN 81437570863 No Longer Active Tu Landeros MD Active MELATONIN 5 MG TABS Take one by mouth daily MELATONIN 13711256861 No Longer Active Tu Landeros MD Active SOMA 350 MG TAB 1 po q 6 hours prn spasm CARISOPRODOL 02227365509 No Longer Active Tu Landeros MD Active MECLIZINE HCL 25 MG CHEW TAB 1 four times a day as needed for dizziness 08/05 MECLIZINE HCL 82602939940 No Longer Active Fab Morales DO Active ANGEL BREEZE 2 TEST DISK test tid prn GLUCOSE BLOOD 17025362745 No Longer Active Negra Scott RN Active REGLAN 10 MG TAB 1 po TID PRN [place] METOCLOPRAMIDE HCL 39987350572 No Longer Active Tu Landeros MD Active METFORMIN HCL 500 MG TABS 1 PO BID METFORMIN HCL 98382204765 No Longer Active Tu Landeros MD Active AMBIEN 10 MG TAB 1 tab by mouth at bedtime as needed for sleep ZOLPIDEM TARTRATE 37920388453 No Longer Active Tu Landeros MD Active FLUOXETINE HCL 40 MG CAPS 1 po q day FLUOXETINE HCL 40069789675 No Longer Active Mayra Fieldsarger Active FISH OIL 1000 MG CAPS Take one by mouth daily OMEGA-3 FATTY ACIDS 06062665539 Active Tu Landeros MD Active GLUCOSAMINE 500 MG TABS Take 2 tab po qd GLUCOSAMINE 60439693427 Active Tu Landeros MD Active TRILIPIX 135 MG CPDR 1 po qd CHOLINE FENOFIBRATE 11274783291 No Longer Active Tu Landeros MD Active ASPIRIN 81 MG CHEW TAB 1 tablet by mouth daily ASPIRIN 31940177131 Active Tu Landeros MD Active FUROSEMIDE 40 MG TAB 1 tablet by mouth daily FUROSEMIDE 76330666032 Active Tu Landeros MD Active KLOR-CON 10 10 MEQ CR-TABS TAKE 2 TABS DAILY POTASSIUM CHLORIDE 12675150263 Active Tu Landeros MD Active AMBIEN 10 MG TAB 1 tab by mouth at bedtime as needed for sleep AMBIEN 10 MG TAB 108390 ZOLPIDEM TARTRATE Inactive METFORMIN HCL 500 MG TABS 1 PO BID METFORMIN HCL 500 MG TABS 370063 METFORMIN HCL Inactive REGLAN 10 MG TAB 1 po TID PRN Nausea REGLAN 10 MG TAB 038120 METOCLOPRAMIDE HCL Inactive MECLIZINE HCL 25 MG CHEW TAB 1 four times a day as needed for dizziness 08/05 MECLIZINE HCL 25 MG CHEW TAB 564517 MECLIZINE HCL Inactive SOMA 350 MG TAB 1 po q 6 hours prn spasm SOMA 350 MG TAB 244495 CARISOPRODOL Inactive MELATONIN 5 MG TABS Take one by mouth daily MELATONIN 5 MG TABS 457874 MELATONIN Inactive MULTIVITAMINS TABS Take one by mouth daily MULTIVITAMINS TABS MULTIPLE VITAMIN Inactive LORTAB 5 5-500 MG TABS 1/2 to 1 tablet by mouth every 4 hours as needed for pain LORTAB 5 5-500 MG TABS HYDROCODONE- ACETAMINOPHEN Inactive XANAX 0.5 MG TABS 1 tablet every 6 hrs prn XANAX 0.5 MG TABS 843231 ALPRAZOLAM Inactive AUGMENTIN 875-125 MG TAB 1 tab by mouth twice daily with food AUGMENTIN 875-125 MG TAB 740344 AMOXICILLIN-POT CLAVULANATE Inactive ALPRAZOLAM 0.5 MG TABS 1 tab every 6hrs as needed ALPRAZOLAM 0.5 MG TABS 480342 ALPRAZOLAM Inactive SPIRONOLACTONE 25 MG TAB 0.5 tablet by mouth daily SPIRONOLACTONE 25 MG TAB 901550 SPIRONOLACTONE Inactive ACCU-CHEK KEYONA PLUS W/DEVICE KIT Use for testing bloodsugars three times daily as needed ACCU-CHEK KEYONA PLUS W/DEVICE KIT BLOOD GLUCOSE MONITORING SUPPL Inactive ACCU-CHEK KEYONA PLUS STRP Use for testing bloodsugars three times daily as needed ACCU-CHEK KEYONA PLUS STRP GLUCOSE BLOOD Inactive ACCU-CHEK FASTCLIX LANCETS MISC Use to check bloodsugar three times daily as needed ACCU-CHEK FASTCLIX LANCETS MISC 77353939185 [facility] Inactive TRAMADOL HCL 50 MG TABS 1 tablets every 6 hours as needed for pain TRAMADOL HCL 50 MG TABS 942128 TRAMADOL HCL Inactive VENLAFAXINE HCL 75 MG TABS 1 po BID VENLAFAXINE HCL 75 MG TABS 217483 VENLAFAXINE HCL Inactive HYDROCODONE-ACETAMINOPHEN 5-500 MG TABS take one po Q 4-6 hours prn HYDROCODONE-ACETAMINOPHEN 5-500 MG TABS HYDROCODONE- ACETAMINOPHEN Inactive LORTAB 5 5-500 MG TABS 1/2 to 1 tablet by mouth every 4 hours as needed for pain LORTAB 5 5-500 MG TABS HYDROCODONE- ACETAMINOPHEN Inactive LAMISIL 250 MG TAB 1 po qd LAMISIL 250 MG TAB 962372 TERBINAFINE HCL Inactive VENLAFAXINE HCL 37.5 MG TABS 1 po BID VENLAFAXINE HCL 37.5 MG TABS 905713 VENLAFAXINE HCL Inactive CIPRO 500 MG TAB 1 tablet by mouth twice daily CIPRO 500 MG TAB 608970 CIPROFLOXACIN HCL Inactive VENLAFAXINE HCL 75 MG TABS 1 po BID VENLAFAXINE HCL 75 MG TABS 309321 VENLAFAXINE HCL Inactive SIMVASTATIN 40 MG TABS Take one by mouth daily SIMVASTATIN 40 MG TABS 842073 SIMVASTATIN Inactive OMEPRAZOLE 20 MG TBEC 1 PO 30 MIN BEFORE 1ST MEAL OMEPRAZOLE 20 MG TBEC 908299 OMEPRAZOLE Inactive FENOFIBRATE 145 MG TABS 1 po qd FENOFIBRATE 145 MG TABS 625939 FENOFIBRATE Inactive BACTRIM DS 800-160 MG TABS 1 bid x 14 day start 09-28-13 BACTRIM DS 800-160 MG TABS 300947 SULFAMETHOXAZOLE-TRIMETHOPRIM Inactive B-12 100 MCG TABS Take one by mouth daily B-12 100 MCG TABS CYANOCOBALAMIN Inactive GABAPENTIN 100 MG CAPS 1 po bid GABAPENTIN 100 MG CAPS 773000 GABAPENTIN Inactive HYDROCODONE-ACETAMINOPHEN 5-325 MG TABS 1 tab by mouth every 6 hours as needed for pain HYDROCODONE-ACETAMINOPHEN 5-325 MG TABS 834746 HYDROCODONE-ACETAMINOPHEN Inactive CIPRO 500 MG TABS 1 bid x 14 days start -814 CIPRO 500 MG TABS 232826 CIPROFLOXACIN HCL Inactive ALIGN 4 MG CAPS [...] as needed DICLOFENAC SODIUM 50 MG TBEC 862835 DICLOFENAC SODIUM Inactive PREDNISONE 20 MG TAB 2 tablets once daily for 2 days, then 1 tablet once daily for 2 days PREDNISONE 20 MG TAB 094371 PREDNISONE Inactive TRUEDRAW LANCING DEVICE MISC Test [...] at bedtime prn REQUIP 2 MG TABS 786204 ROPINIROLE HCL Inactive TRIAMCINOLONE ACETONIDE 0.1 % OINT Apply to affected areas TID for up to 2 weeks TRIAMCINOLONE ACETONIDE 0.1 % OINT 5023486 TRIAMCINOLONE ACETONIDE Inactive PREDNISONE 20 MG TAB 2 tabs daily for 3 days, 1 tab daily for 3 days, 1/2 tab daily for 2 days PREDNISONE 20 MG TAB 238246 PREDNISONE Inactive PREDNISONE 20 MG TAB 2 tabs daily for 3 days, 1 tab daily for 3 days, 1/2 tab daily for 2 days PREDNISONE 20 MG TAB 967836 PREDNISONE Inactive BACTRIM DS 800-160 MG TABS 1 po BID x 7 days BACTRIM DS 800-160 MG TABS 016360 SULFAMETHOXAZOLE-TRIMETHOPRIM Inactive ZITHROMAX 250 MG TAB 2 po today, then 1 po q days 2-5 ZITHROMAX 250 MG TAB 7761114 AZITHROMYCIN Inactive Advance Directives Directive Description Start Date DISCUSSED WITH PATIENT -- NO DECISION MADE Immunizations Vaccine Administration Date Value Standard Description Seasonal influenza vaccine, injectable, containing preservative, for > 3 years old (Afluria, FluLaval, Fluzone, Fluvirin, Fluarix, Agriflu(>=18 yo)) Fluzone (>3 yrs.) [[id number]] Influenza, seasonal, injectable influenza immunization (Flu Vax) has been administered 02/22/2012 influenza virus vaccine, unspecified formulation Seasonal influenza vaccine, injectable, containing preservative, for > 3 years old (Afluria, FluLaval, Fluzone, Fluvirin, Fluarix, Agriflu(>=18 yo)) Fluzone (>3 yrs.) [[id number]] Influenza, seasonal, injectable Vital Signs Date Name [...] E&M - 3141-9 311.5 [lb_av] Weight Measured Diagnostic Results Date Name [...] 7.4 % 4.3-6.0 sodium, serum 140 mmol/L 079-311 5077/09/07 potassium, serum 4.3 mmol/L 3.5-5.2 chloride, serum 104 mmol/L 98-107 carbon dioxide, venous blood 27.7 mmol/L 21.0-32.0 blood glucose 156 mg/dL 65-110 calcium, serum 9.3 mg/dL 8.5-10.1 urea nitrogen, blood 23 mg/dL 7-18 creatinine, serum 1.21 mg/dL 0.55-1.30 Lab Report: Lipid Panel, Comp. Metabolic Panel - Chemistry cholesterol, serum 124 mg/dL 338-904 2446/01/12 triglyceride, serum, fasting 135 mg/dL 30-200 HDL cholesterol, serum 41 mg/dL 32-96 LDL cholesterol, serum 56 mg/dL 0-130 sodium, serum 140 mmol/L 090-142 9265/01/12 carbon dioxide, venous blood 27.7 mmol/L 21.0-32.0 potassium, serum 4.5 mmol/L 3.5-5.2 chloride, serum 104 mmol/L 98-107 blood glucose 139 mg/dL 65-110 urea nitrogen, blood 16 mg/dL 7-18 alanine aminotransferase (SGPT), serum 32 U/L 12-78 aspartate aminotransferase (SGOT), serum 25 U/L 15-37 calcium, serum 9.1 mg/dL 8.5-10.1 bilirubin, serum, total 0.50 mg/dL 0.00-1.00 Encounters Code Encounter Date Provider Facility CPT-57530 Level 4 Est. Patient 14:40:19 CDT Tu Landeros MD [facility] CPT-01297 Level 4 Est. Patient 14:06:04 MANAGER ARCHITECTURAL Tu Landeros MD [facility] CPT-89304 Level 3 Est. Patient 14:05:18 MANAGER ARCHITECTURAL Tu Landeros MD [facility] CPT-32803 Level 3 Est. Patient 10:06:54 MANAGER ARCHITECTURAL Miranda Suresh APRN [facility] CPT-39292 Level 4 Est. Patient 13:50:18 MANAGER ARCHITECTURAL Tu Landeros MD [facility] CPT-54600 Level 3 Est. Patient 10:30:04 CDT Tu Landeros MD [facility] CPT-60403 Level 4 Est. Patient 11:03:38 CDT Tu Landeros MD [facility] CPT-81995 Level 3 Est. Patient 10:20:44 CDT Fab Morales DO [facility] CPT-48139 Level 4 Est. Patient 14:38:57 CDT Tu Landeros MD [facility] CPT-56122 Level 4 Est. Patient 14:27:39 MANAGER ARCHITECTURAL Tu Landeros MD [facility] CPT-55611 Level 4 Est. Patient 09:45:25 CDT Tu Landeros MD [facility] CPT-46550 Level 4 Est. Patient 09:05:20 MANAGER ARCHITECTURAL Tu Landeros MD [facility] CPT-16280 Level 4 Est. Patient 14:09:06 CDT Tu Landeros MD [facility] CPT-48030 Level 3 Est. Patient 13:36:54 CDT Tu Landeros MD [facility] CPT-49114 Level 3 Est. Patient 08:59:14 CDT Tu Landeros MD [facility] CPT-68161 Level 3 Est. Patient 13:48:35 CDT Fab Morales DO [facility] CPT-81919 Level 4 Est. Patient 10:05:48 CDT Tu Landeros MD [facility] CPT-71700 Level 3 Est. Patient 13:38:42 CDT aMrek BANKS [facility] CPT-42705 Level 5 Est. Patient 08:08:39 CDT Jerrica FRANCIS [facility] CPT-72249 Level 4 Est. Patient 14:23:38 CDT Tu Landeros MD [facility] CPT-01229 Level 3 Est. Patient 11:44:04 CDT Tu Landeros MD [facility] CPT-41626 Level 3 Est. Patient 11:03:20 MANAGER ARCHITECTURAL Tu Landeros MD [facility] CPT-79306 Level 3 Est. Patient 11:03:14 MANAGER ARCHITECTURAL Tu Landeros MD [facility] CPT-84552 Level 3 Est. Patient 12:42:49 CDT Tu Landeros MD [facility] CPT-97557 Level 3 Est. Patient 11:52:06 CDT Tu Landeros MD [facility] CPT-69535 Level 3 Est. Patient 13:58:11 CDT Tu Landeros MD [facility] CPT-23086 Level 3 Est. Patient 17:50:07 CDT Fab Morales DO [facility] CPT-76337 Level 3 Est. Patient 12:06:29 CDT Elvira Cervantes MD PhD [facility] CPT-02893 Level 3 Est. Patient 15:50:32 CDT Tu Landeros MD [facility] CPT-26036 Level 4 Est. Patient 16:08:29 CDT Tu Landeros MD [facility] CPT-00717 Level 3 Est. Patient 16:04:19 CDT Tu Landeros MD [facility] CPT-76005 Level 3 Est. Patient 11:22:30 MANAGER ARCHITECTURAL Tu Landeros MD [facility] CPT-30357 Level 4 Est. Patient 16:24:02 MANAGER ARCHITECTURAL Tu Landeros MD [facility] CPT-13654 Level 3 Est. Patient 17:21:23 MANAGER ARCHITECTURAL Tu Landeros MD [facility] Procedures Code Procedure Name Date Entry Date Standard Description CPT-41399 First Vx - Ix admin for Medicare patients 16:46:52 CDT CPT-54369 Fluzone Preservative Free Intramuscular Suspension 16:46 :51 CDT CPT-48610 CBC - LAB USE ONLY 17:14:46 CDT CPT-28030 HGBA1C - LAB USE ONLY 17:14:46 CDT CPT-86268 Venipuncture Draw Fee 17:14:46 CDT CPT-G0438 Initial Annual Wellness Exam 14:13:04 CDT CPT-24383 Breathing Tx 10:06:54 MANAGER ARCHITECTURAL CPT-89491 Postop F/U Visit 10:02:45 CDT CPT-LR Lesion Removal 09:02:56 CDT CPT-JTINJ Asp/Joint Injection 15:51:27 MANAGER ARCHITECTURAL CPT-OV Office Visit 15:52:02 MANAGER ARCHITECTURAL CPT-OV Office Visit 15:45:11 CDT CPT-000 Give Zostavax 14:09:06 CDT CPT-94321 Administration single or combination vaccine inc oral 15 :19:04 CDT CPT-45969 Zoster Vaccine (Zostavax) 15:19:04 CDT CPT-67111 Administration single or combination vaccine inc oral 20 :51:03 CDT CPT-50794 Influenza split virus > age 3 20:51:03 CDT CPT-70059 No Charge Offi Visit 14:52:03 CDT CPT-OV Office Visit 14:57:43 CDT CPT-OV Office Visit 15:22:32 CDT CPT-92883 Administration single or combination vaccine inc oral 11 :33:15 CDT CPT-24523 Influenza split virus > age 3 11:33:15 CDT
--- OUTSIDE RECORDS SUMMARY | 2018-04-25 13:16 | XMS REPORT | Clinical Summary ---
Author Author Admin, SACHI Organization [employer] Address Unknown Phone Unavailable Allergies, Adverse Reactions, [...] both eyes, impairment level not further specified HEALTH SCREENING ICD-V70.0 Inactive Elvira Cervantes MD PhD 2011 POSTMENOPAUSAL BLEEDING ICD-627.1 Inactive Elvira Cervantes MD PhD INSOMNIA, PERSISTENT ICD-307.42 Inactive Tu Landeros MD BENIGN PAROXYSMAL POSITIONAL VERTIGO ICD-386.11 Inactive Tu Landeros MD LEG CRAMPS, NOCTURNAL ICD-729.82 Inactive Tu Landeros MD FREQUENCY, URINARY ICD-788.41 Inactive Elvira Cervantes MD PhD FEVER UNSPECIFIED ICD-780.60 Inactive Tu Landeros MD MUSCLE SPASM ICD-728.85 Inactive Tu Landeros MD DIZZINESS ICD-780.4 Inactive Tu Landeros MD SHOULDER PAIN, LEFT ICD-719.41 Inactive Tu Landeros MD GASTROENTERITIS ICD-558.9 Inactive Tu Landeros MD RASH AND OTHER NONSPECIFIC SKIN ERUPTION ICD-782.1 Inactive Tu Landeros MD FATIGUE ICD-780.79 Inactive Tu Landeros MD 2012 SCIATICA ICD-724.3 Inactive Tu Landeros MD 2012 PARESTHESIA ICD-782.0 Inactive Tu Landeros MD KNEE PAIN ICD-719.46 Inactive Tu Landeros MD CARPAL TUNNEL SYNDROME ICD-354.0 Inactive Tu Landeros MD ARTHRITIS ICD-716.90 Inactive Tu Landeros MD LOCALIZED SUPERFICIAL SWELLING MASS OR LUMP ICD-782.2 Inactive Tu Landeros MD CONTUSION OF UNSPECIFIED SITE ICD-924.9 Inactive Tu Landeros MD Open wound of abdominal wall, anterior, complicated ICD-879.3 Tessa Landeros MD Upper respiratory infection, viral ICD-465.9 Tessa Sy MD Open wound of other and unspecified parts of trunk, complicated ICD-879.7 Inactive Tu Landeros MD Knee pain, left, acute ICD-719.46 Inactive Tu Landeros MD Ear pain, bilateral ICD-388.70 Tessa Landeros MD PRESSURE ULCER UNSPECIFIED SITE ICD-707.00 Tessa Landeros MD ONYCHOMYCOSIS ICD-110.1 Inactive Tu Landeros MD Sebaceous cyst ICD-706.2 Inactive Tu Landeros MD Hot flashes ICD-627.2 Inactive Tu Landeros MD Medication List Medication Instructions Start Date Stop Date Generic Name NDC Status Provider Patient Instruction VENTOLIN HFA 108 (90 BASE) MCG/ACT AERS 1-2 puffs every 4 hours if needed for cough/congestion ALBUTEROL SULFATE 20339312645 No Longer Active Ambika Aden APRN Active ZITHROMAX 250 MG TAB 2 po today, then 1 po q days 2-5 AZITHROMYCIN 70904138396 No Longer Active Miranda Suresh APRN Active METFORMIN HCL 1000 MG TABS 1 tablet by mouth twice daily METFORMIN HCL 01468198040 Active Tu Landeros MD Active FLONASE 50 MCG/ACT SUSP 1 spray each nostril twice daily until bottle empty FLUTICASONE PROPIONATE 02501767692 No Longer Active Tu Landeros MD Active COLACE 100 MG CAP 1 po BID PRN Constipation DOCUSATE SODIUM 53626788953 Active Tu Landeros MD Active SIMVASTATIN 40 MG TABS 0.5 tab daily at bedtime SIMVASTATIN 37470950126 Active Tu Landeros MD Active TRUERESULT BLOOD GLUCOSE W/DEVICE KIT test blood sugar twice daily dx 250.00 BLOOD GLUCOSE MONITORING SUPPL 56113575575 No Longer Active Tu Landeros MD Active TRUEDRAW LANCING DEVICE MISC Test twice a day dx 250.0 LANCET DEVICES 67100842311 No Longer Active Tu Landeros MD Active PREDNISONE 20 MG TAB 2 tablets once daily for 2 days, then 1 tablet once daily for 2 days PREDNISONE 05850290770 No Longer Active Tu Landeros MD Active DICLOFENAC SODIUM 50 MG TBEC 1 tablet by mouth three times a day as needed DICLOFENAC SODIUM 22811057544 No Longer Active Fab Morales DO Active TRUEDRAW LANCING DEVICE MISC test blood sugar twice daily dx: 250.00 LANCET DEVICES 00485834855 Active Tu Landeros MD Active TRUETEST TEST INVITR STRP test blood sugar twice daily. DX 250.0 GLUCOSE BLOOD 56035902685 Active Tu Landeros MD Active EMBRACE BLOOD GLUCOSE TEST STRP test blood sugar twice daily DX 250.0 2014 GLUCOSE BLOOD 94919089350 No Longer Active Tu Landeros MD Active TRUETEST TEST STRP test blood sugar three times daily dx: 250.00 GLUCOSE BLOOD 76106096545 No Longer Active Suzebianca Nicole RMMahendra Active TRUERESULT BLOOD GLUCOSE W/DEVICE KIT use to test blood sugar tid dx: 250.00 BLOOD GLUCOSE MONITORING SUPPL 18017410498 No Longer Active Suze Corey RMA Active ALIGN 4 MG CAPS 1 tid PROBIOTIC PRODUCT 64779010564 No Longer Active Shaun Sy MD Active CIPRO 500 MG TABS 1 bid x 14 days start 09-28-13 CIPROFLOXACIN HCL 19710079401 No Longer Active Shaun Sy MD Active TRAMADOL HCL 50 MG TABS 1-2 tablets every 6 hours as needed for pain TRAMADOL HCL 06952949495 Active Tu Landeros MD Active HYDROCODONE-ACETAMINOPHEN 5-325 MG TABS 1 tab by mouth every 6 hours as needed for pain HYDROCODONE-ACETAMINOPHEN 78271629114 No Longer Active Tu Landeros MD Active OMEPRAZOLE 20 MG CPDR 1 po q a.m. OMEPRAZOLE 05327409827 Active uT Landeros MD Active GABAPENTIN 100 MG CAPS 1 po bid GABAPENTIN 68029828945 No Longer Active uT Landeros MD Active B-12 100 MCG TABS Take one by mouth daily CYANOCOBALAMIN 28081003591 No Longer Active Tu Landeros MD Active GABAPENTIN 100 MG CAPS by mouth twice a day GABAPENTIN 32861732365 Active Tu Landeros MD Active BACTRIM DS 800-160 MG TABS 1 bid x 14 day start 8-14 SULFAMETHOXAZOLE-TRIMETHOPRIM 41847482928 No Longer Active Tu Landeros MD Active CARVEDILOL 12.5 MG TABS 1 po BID CARVEDILOL 58164191046 Active Tu Landeros MD Active SUPER B COMPLEX/VITAMIN C TABS 1 qd B COMPLEX-C 01725043749 Active JASPREET Perez Active TRILIPIX 135 MG CPDR 1 q hs CHOLINE FENOFIBRATE 05746869574 Active Tu Landeros MD Active FENOFIBRATE 145 MG TABS 1 po qd FENOFIBRATE 85893033008 No Longer Active JASPREET Perez Active OMEPRAZOLE 20 MG TBEC 1 PO 30 MIN BEFORE 1ST MEAL OMEPRAZOLE 00555488134 No Longer Active JASPREET Perez Active SIMVASTATIN 40 MG TABS Take one by mouth daily SIMVASTATIN 57101149363 No Longer Active JASPREET Perez Active VENLAFAXINE HCL 37.5 MG TABS 1 bid VENLAFAXINE HCL 17384845087 Active Tu Landeros MD Active VENLAFAXINE HCL 75 MG TABS 1 po BID VENLAFAXINE HCL 40510278430 No Longer Active JASPREET Perez Active CIPRO 500 MG TAB 1 tablet by mouth twice daily CIPROFLOXACIN HCL 05604054350 No Longer Active Tu Landeros MD Active VENLAFAXINE HCL 37.5 MG TABS 1 po BID VENLAFAXINE HCL 70916156617 No Longer Active Suze Corey RMA Active LAMISIL 250 MG TAB 1 po qd TERBINAFINE HCL 95106018886 No Longer Active Tu Landeros MD Active LORTAB 5 5-500 MG TABS 1/2 to 1 tablet by mouth every 4 hours as needed for pain HYDROCODONE-ACETAMINOPHEN 27207554442 No Longer Active Tu Landeros MD Active ENALAPRIL MALEATE 20 MG TABS 1.5 po qd ENALAPRIL MALEATE 54700980179 Active Tu Landeros MD Active HYDROCODONE-ACETAMINOPHEN 5-500 MG TABS take one po Q 4-6 hours prn HYDROCODONE-ACETAMINOPHEN 16328251806 No Longer Active Tu Landeros MD Active BACTRIM DS 800-160 MG TABS 1 po BID x 7 days SULFAMETHOXAZOLE-TRIMETHOPRIM 36211682786 No Longer Active Tu Landeros MD Active VENLAFAXINE HCL 75 MG TABS 1 po BID VENLAFAXINE HCL 64368368032 No Longer Active Elvira Cervantes MD PhD Active TRAMADOL HCL 50 MG TABS 1 tablets every 6 hours as needed for pain TRAMADOL HCL 65831717335 No Longer Active Tu Landeros MD Active ACCU-CHEK FASTCLIX LANCETS MISC Use to check bloodsugar three times daily as needed LANCETS 05051423542 No Longer Active Tu Landeros MD Active ACCU-CHEK KEYONA PLUS STRP Use for testing bloodsugars three times daily as needed GLUCOSE BLOOD 27325994656 No Longer Active Tu Landeros MD Active ACCU-CHEK KEYONA PLUS W/DEVICE KIT Use for testing bloodsugars three times daily as needed BLOOD GLUCOSE MONITORING SUPPL 08513426819 No Longer Active Tu Landeros MD Active SPIRONOLACTONE 25 MG TAB 0.5 tablet by mouth daily SPIRONOLACTONE 97643695608 No Longer Active Tu Landeros MD Active ALPRAZOLAM 0.5 MG TABS 1 tab every 6hrs as needed ALPRAZOLAM 25160304562 No Longer Active Tu Landeros MD Active AUGMENTIN 875-125 MG TAB 1 tab by mouth twice daily with food AMOXICILLIN-POT CLAVULANATE 05471915377 No Longer Active Tu Landeros MD Active PREDNISONE 20 MG TAB 2 tabs daily for 3 days, 1 tab daily for 3 days, 1/2 tab daily for 2 days PREDNISONE 30784819108 No Longer Active Tu Landeros MD Active XANAX 0.5 MG TABS 1 tablet every 6 hrs prn ALPRAZOLAM 08847221011 No Longer Active Tu Landeros MD Active PREDNISONE 20 MG TAB 2 tabs daily for 3 days, 1 tab daily for 3 days, 1/2 tab daily for 2 days PREDNISONE 12808763619 No Longer Active Tu Landeros MD Active TRIAMCINOLONE ACETONIDE 0.1 % OINT Apply to affected areas TID for up to 2 weeks TRIAMCINOLONE ACETONIDE 16121978698 No Longer Active Tu Landeros MD Active LORTAB 5 5-500 MG TABS 1/2 to 1 tablet by mouth every 4 hours as needed for pain HYDROCODONE-ACETAMINOPHEN 15827832672 No Longer Active Tu Landeros MD Active MULTIVITAMINS TABS Take one by mouth daily MULTIPLE VITAMIN 03592587269 No Longer Active Tu Landeros MD Active MELATONIN 5 MG TABS Take one by mouth daily MELATONIN 15655703450 No Longer Active Tu Landeros MD Active SOMA 350 MG TAB 1 po q 6 hours prn spasm CARISOPRODOL 38805543692 No Longer Active Tu Landeros MD Active MECLIZINE HCL 25 MG CHEW TAB 1 four times a day as needed for dizziness 08/05 MECLIZINE HCL 75874214399 No Longer Active Fab Morales DO Active ANGEL BREEZE 2 TEST DISK test tid prn GLUCOSE BLOOD 67560915415 No Longer Active Negra Scott RN Active REGLAN 10 MG TAB 1 po TID PRN Nausea METOCLOPRAMIDE HCL 02438545580 No Longer Active Tu Landeros MD Active METFORMIN HCL 500 MG TABS 1 PO BID METFORMIN HCL 90827113312 No Longer Active Tu Landeros MD Active AMBIEN 10 MG TAB 1 tab by mouth at bedtime as needed for sleep ZOLPIDEM TARTRATE 50232079946 No Longer Active Tu Landeros MD Active FLUOXETINE HCL 40 MG CAPS 1 po q day FLUOXETINE HCL 27557028439 No Longer Active Mayra Terry Active FISH OIL 1000 MG CAPS Take one by mouth daily OMEGA-3 FATTY ACIDS 93885655962 Active Tu Landeros MD Active GLUCOSAMINE 500 MG TABS Take 2 tab po qd GLUCOSAMINE 23801573941 Active Tu Landeros MD Active TRILIPIX 135 MG CPDR 1 po qd CHOLINE FENOFIBRATE 50513151785 No Longer Active Tu Landeros MD Active ASPIRIN 81 MG CHEW TAB 1 tablet by mouth daily ASPIRIN 94551770099 Active Tu Landeros MD Active FUROSEMIDE 40 MG TAB 1 tablet by mouth daily FUROSEMIDE 62904688691 Active Tu Landeros MD Active REQUIP 2 MG TABS Take one tablet at bedtime prn ROPINIROLE HCL 70310554759 Active uT Landeros MD Active KLOR-CON 10 10 MEQ CR-TABS TAKE 2 TABS DAILY POTASSIUM CHLORIDE 82368121121 Active Tu Landeros MD Active AMBIEN 10 MG TAB 1 tab by mouth at bedtime as needed for sleep AMBIEN 10 MG TAB 709229 ZOLPIDEM TARTRATE Inactive METFORMIN HCL 500 MG TABS 1 PO BID METFORMIN HCL 500 MG TABS 556543 METFORMIN HCL Inactive REGLAN 10 MG TAB 1 po TID PRN Nausea REGLAN 10 MG TAB 667366 METOCLOPRAMIDE HCL Inactive MECLIZINE HCL 25 MG CHEW TAB 1 four times a day as needed for dizziness 08/05 MECLIZINE HCL 25 MG CHEW TAB 537820 MECLIZINE HCL Inactive SOMA 350 MG TAB 1 po q 6 hours prn spasm SOMA 350 MG TAB 591422 CARISOPRODOL Inactive MELATONIN 5 MG TABS Take one by mouth daily MELATONIN 5 MG TABS 391251 MELATONIN Inactive MULTIVITAMINS TABS Take one by mouth daily MULTIVITAMINS TABS MULTIPLE VITAMIN Inactive LORTAB 5 5-500 MG TABS 1/2 to 1 tablet by mouth every 4 hours as needed for pain LORTAB 5 5-500 MG TABS HYDROCODONE- ACETAMINOPHEN Inactive XANAX 0.5 MG TABS 1 tablet every 6 hrs prn XANAX 0.5 MG TABS 101086 ALPRAZOLAM Inactive AUGMENTIN 875-125 MG TAB 1 tab by mouth twice daily with food AUGMENTIN 875-125 MG TAB 989300 AMOXICILLIN-POT CLAVULANATE Inactive ALPRAZOLAM 0.5 MG TABS 1 tab every 6hrs as needed ALPRAZOLAM 0.5 MG TABS 976395 ALPRAZOLAM Inactive SPIRONOLACTONE 25 MG TAB 0.5 tablet by mouth daily SPIRONOLACTONE 25 MG TAB 930609 SPIRONOLACTONE Inactive ACCU-CHEK KEYONA PLUS W/DEVICE KIT Use for testing bloodsugars three times daily as needed ACCU-CHEK KEYONA PLUS W/DEVICE KIT BLOOD GLUCOSE MONITORING SUPPL Inactive ACCU-CHEK KEYONA PLUS STRP Use for testing bloodsugars three times daily as needed ACCU-CHEK KEYONA PLUS STRP GLUCOSE BLOOD Inactive ACCU-CHEK FASTCLIX LANCETS MISC Use to check bloodsugar three times daily as needed ACCU-CHEK FASTCLIX LANCETS MISC 58860939678 LANCETS Inactive TRAMADOL HCL 50 MG TABS 1 tablets every 6 hours as needed for pain TRAMADOL HCL 50 MG TABS 528296 TRAMADOL HCL Inactive VENLAFAXINE HCL 75 MG TABS 1 po BID VENLAFAXINE HCL 75 MG TABS 479751 VENLAFAXINE HCL Inactive HYDROCODONE-ACETAMINOPHEN 5-500 MG TABS take one po Q 4-6 hours prn HYDROCODONE-ACETAMINOPHEN 5-500 MG TABS HYDROCODONE- ACETAMINOPHEN Inactive LORTAB 5 5-500 MG TABS 1/2 to 1 tablet by mouth every 4 hours as needed for pain LORTAB 5 5-500 MG TABS HYDROCODONE- ACETAMINOPHEN Inactive LAMISIL 250 MG TAB 1 po qd LAMISIL 250 MG TAB 455873 TERBINAFINE HCL Inactive VENLAFAXINE HCL 37.5 MG TABS 1 po BID VENLAFAXINE HCL 37.5 MG TABS 538716 VENLAFAXINE HCL Inactive CIPRO 500 MG TAB 1 tablet by mouth twice daily CIPRO 500 MG TAB 311562 CIPROFLOXACIN HCL Inactive VENLAFAXINE HCL 75 MG TABS 1 po BID VENLAFAXINE HCL 75 MG TABS 488157 VENLAFAXINE HCL Inactive SIMVASTATIN 40 MG TABS Take one by mouth daily SIMVASTATIN 40 MG TABS 745174 SIMVASTATIN Inactive OMEPRAZOLE 20 MG TBEC 1 PO 30 MIN BEFORE 1ST MEAL OMEPRAZOLE 20 MG TBEC 081933 OMEPRAZOLE Inactive FENOFIBRATE 145 MG TABS 1 po qd FENOFIBRATE 145 MG TABS 722058 FENOFIBRATE Inactive BACTRIM DS 800-160 MG TABS 1 bid x 14 day start 09-28-13 BACTRIM DS 800-160 MG TABS 848216 SULFAMETHOXAZOLE-TRIMETHOPRIM Inactive B-12 100 MCG TABS Take one by mouth daily B-12 100 MCG TABS CYANOCOBALAMIN Inactive GABAPENTIN 100 MG CAPS 1 po bid GABAPENTIN 100 MG CAPS 201095 GABAPENTIN Inactive HYDROCODONE-ACETAMINOPHEN 5-325 MG TABS 1 tab by mouth every 6 hours as needed for pain HYDROCODONE-ACETAMINOPHEN 5-325 MG TABS 265051 HYDROCODONE-ACETAMINOPHEN Inactive CIPRO 500 MG TABS 1 bid x 14 days start 09-28-13 CIPRO 500 MG TABS 738866 CIPROFLOXACIN HCL Inactive ALIGN 4 MG CAPS [...] as needed DICLOFENAC SODIUM 50 MG TBEC 023967 DICLOFENAC SODIUM Inactive PREDNISONE 20 MG TAB 2 tablets once daily for 2 days, then 1 tablet once daily for 2 days PREDNISONE 20 MG TAB 385731 PREDNISONE Inactive TRUEDRAW LANCING DEVICE MISC Test twice a day dx 250.0 TRUEDRAW LANCING DEVICE MISC LANCET DEVICES Inactive TRUERESULT BLOOD GLUCOSE W/DEVICE KIT test blood sugar twice daily dx 250.00 TRUERESULT BLOOD GLUCOSE W/DEVICE KIT BLOOD GLUCOSE MONITORING SUPPL Inactive FLONASE 50 MCG/ACT SUSP 1 spray each nostril twice daily until bottle empty FLONASE 50 MCG/ACT SUSP 835258 FLUTICASONE PROPIONATE Inactive VENTOLIN HFA 108 (90 BASE) MCG/ACT AERS 1-2 puffs every 4 hours if needed for cough/congestion VENTOLIN HFA 108 (90 BASE) MCG/ACT AERS ALBUTEROL SULFATE Inactive TRIAMCINOLONE ACETONIDE 0.1 % OINT Apply to affected areas TID for up to 2 weeks TRIAMCINOLONE ACETONIDE 0.1 % OINT 2260412 TRIAMCINOLONE ACETONIDE Inactive PREDNISONE 20 MG TAB 2 tabs daily for 3 days, 1 tab daily for 3 days, 1/2 tab daily for 2 days PREDNISONE 20 MG TAB 618893 PREDNISONE Inactive PREDNISONE 20 MG TAB 2 tabs daily for 3 days, 1 tab daily for 3 days, 1/2 tab daily for 2 days PREDNISONE 20 MG TAB 543258 PREDNISONE Inactive BACTRIM DS 800-160 MG TABS 1 po BID x 7 days BACTRIM DS 800-160 MG TABS 225716 SULFAMETHOXAZOLE-TRIMETHOPRIM Inactive ZITHROMAX 250 MG TAB 2 po today, then 1 po q days 2-5 ZITHROMAX 250 MG TAB 6181281 AZITHROMYCIN Inactive Advance Directives Directive Description Start Date DISCUSSED WITH PATIENT -- NO DECISION MADE Immunizations Vaccine Administration Date Value Standard Description Seasonal influenza vaccine, injectable, containing preservative, for > 3 years old (Afluria, FluLaval, Fluzone, Fluvirin, Fluarix, Agriflu(>=18 yo)) Fluzone (>3 yrs.) [[id number]] Influenza, seasonal, injectable influenza immunization (Flu Vax) has been administered 02/22/2012 influenza virus vaccine, unspecified formulation Seasonal influenza vaccine, injectable, containing preservative, for > 3 years old (Afluria, FluLaval, Fluzone, Fluvirin, Fluarix, Agriflu(>=18 yo)) Fluzone (>3 yrs.) [[id number]] Influenza, seasonal, injectable Vital Signs Date Name [...] ratio, urine < 30 mg/g mg/g{creat} 0-29 blood glucose 142 mg/dL 65-110 calcium, serum 9.1 mg/dL 8.5-10.1 urea nitrogen, blood 17 mg/dL 7-18 creatinine, serum 0.92 mg/dL 0.55-1.30 carbon dioxide, venous blood 28.9 mmol/L 21.0-32.0 chloride, serum 105 mmol/L 98-107 potassium, serum 4.5 mmol/L 3.5-5.2 sodium, serum 142 mmol/L 136-145 Lab Report: Basic Metabolic Panel, MICROALBUMIN - Lab microalbumin, urine 10 0-19 Lab Report: HEPATIC PANEL, Lipid Panel - Chemistry aspartate aminotransferase (SGOT), serum 18 U/L 15-37 alanine aminotransferase (SGPT), serum 32 U/L 12-78 bilirubin, serum, total 0.30 mg/dL 0.00-1.00 cholesterol, serum 111 mg/dL 460-859 5907/07/28 triglyceride, serum, fasting 177 mg/dL 30-200 HDL cholesterol, serum 32 mg/dL 32-96 LDL cholesterol, serum 44 mg/dL 0-130 Lab Report: HGBA1C - Chemistry hemoglobin A1C, blood, as % of total hemoglobin 6.8 % 4.3-6.0 hemoglobin A1C, blood, as % of total hemoglobin 7.7 % 4.3-6.0 hemoglobin A1C, blood, as % of total hemoglobin 7.1 % 4.3-6.0 Lab Report: LH/Adult/615, FSH/Adult/470 - Chemistry luteinizing hormone, serum 1.3 m[iU]/mL follicle stimulating hormone, serum 5.5 m[iU]/mL Lab Report: Lipid Panel, Comp. Metabolic Panel - Chemistry cholesterol, serum 124 mg/dL [phone]/01/12 triglyceride, serum, fasting 135 mg/dL 30-200 HDL cholesterol, serum 41 mg/dL 32-96 LDL cholesterol, serum 56 mg/dL 0-130 sodium, serum 140 mmol/L 162-067 0701/01/12 carbon dioxide, venous blood 27.7 mmol/L 21.0-32.0 potassium, serum 4.5 mmol/L 3.5-5.2 chloride, serum 104 mmol/L 98-107 blood glucose 139 mg/dL 65-110 urea nitrogen, blood 16 mg/dL 7-18 alanine aminotransferase (SGPT), serum 32 U/L 12-78 aspartate aminotransferase (SGOT), serum 25 U/L 15-37 calcium, serum 9.1 mg/dL 8.5-10.1 bilirubin, serum, total 0.50 mg/dL 0.00-1.00 Encounters Code Encounter Date Provider Facility CPT-32386 Level 4 Est. Patient 14:06:04 FIRE CONTROL TECHNICIAN G Tu Landeros MD [facility] CPT-64986 Level 3 Est. Patient 14:05:18 FIRE CONTROL TECHNICIAN G Tu Landeros MD [facility] CPT-45065 Level 3 Est. Patient 10:06:54 FIRE CONTROL TECHNICIAN G Miranda Suresh APRN [facility] CPT-73825 Level 4 Est. Patient 13:50:18 FIRE CONTROL TECHNICIAN G Tu Landeros MD [facility] CPT-39133 Level 3 Est. Patient 10:30:04 CDT Tu Landeros MD [facility] CPT-21793 Level 4 Est. Patient 11:03:38 CDT Tu Landeros MD [facility] CPT-95980 Level 3 Est. Patient 10:20:44 CDT Fab Morales DO [facility] CPT-96674 Level 4 Est. Patient 14:38:57 CDT Tu Landeros MD [facility] CPT-35894 Level 4 Est. Patient 14:27:39 FIRE CONTROL TECHNICIAN G Tu Landeros MD [facility] CPT-61823 Level 4 Est. Patient 09:45:25 CDT Tu Landeros MD [facility] CPT-86949 Level 4 Est. Patient 09:05:20 FIRE CONTROL TECHNICIAN G Tu Landeros MD [facility] CPT-23026 Level 4 Est. Patient 14:09:06 CDT Tu Landeros MD [facility] CPT-37054 Level 3 Est. Patient 13:36:54 CDT Tu Landeros MD [facility] CPT-61055 Level 3 Est. Patient 08:59:14 CDT Tu Landeros MD [facility] CPT-81658 Level 3 Est. Patient 13:48:35 CDT Fab Morales DO [facility] CPT-78043 Level 4 Est. Patient 10:05:48 CDT Tu Landeros MD [facility] CPT-18032 Level 3 Est. Patient 13:38:42 CDT Marek BANKS [facility] CPT-60337 Level 5 Est. Patient 08:08:39 CDT Jerrica FRANCIS [facility] CPT-14030 Level 4 Est. Patient 14:23:38 CDT Tu Landeros MD [facility] CPT-17002 Level 3 Est. Patient 11:44:04 CDT Tu Landeros MD [facility] CPT-06263 Level 3 Est. Patient 11:03:20 FIRE CONTROL TECHNICIAN G Tu Landerso MD [facility] CPT-46616 Level 3 Est. Patient 11:03:14 FIRE CONTROL TECHNICIAN G Tu Landeros MD [facility] CPT-74849 Level 3 Est. Patient 12:42:49 CDT Tu Landeros MD [facility] CPT-53697 Level 3 Est. Patient 11:52:06 CDT Tu Landeros MD [facility] CPT-26573 Level 3 Est. Patient 13:58:11 CDT Tu Landeros MD [facility] CPT-42008 Level 3 Est. Patient 17:50:07 CDT Fab Morales DO [facility] CPT-53129 Level 3 Est. Patient 12:06:29 CDT Elvira Cervantes MD, PhD [facility] CPT-52860 Level 3 Est. Patient 15:50:32 CDT Tu Landeros MD [facility] CPT-60281 Level 4 Est. Patient 16:08:29 CDT Tu Landeros MD [facility] CPT-09710 Level 3 Est. Patient 16:04:19 CDT Tu Landeros MD [facility] CPT-17713 Level 3 Est. Patient 11:22:30 FIRE CONTROL TECHNICIAN G Tu Landeros MD [facility] CPT-73010 Level 4 Est. Patient 16:24:02 FIRE CONTROL TECHNICIAN G Tu Landeros MD [facility] CPT-52518 Level 3 Est. Patient 17:21:23 FIRE CONTROL TECHNICIAN G Tu Landeros MD [facility] Procedures Code Procedure Name Date Entry Date Standard Description CPT-G0438 Initial Annual Wellness Exam 14:13:04 CDT CPT-67977 Breathing Tx 10:06:54 FIRE CONTROL TECHNICIAN G CPT-91645 Postop F/U Visit 10:02:45 CDT CPT-LR Lesion Removal 09:02:56 CDT CPT-JTINJ Asp/Joint Injection 15:51:27 FIRE CONTROL TECHNICIAN G CPT-OV Office Visit 15:52:02 FIRE CONTROL TECHNICIAN G CPT-OV Office Visit 15:45:11 CDT CPT-000 Give Zostavax 14:09:06 CDT CPT-59899 Administration single or combination vaccine inc oral 15 :19:04 CDT CPT-94515 Zoster Vaccine (Zostavax) 15:19:04 CDT CPT-82498 Administration single or combination vaccine inc oral 20 :51:03 CDT CPT-39134 Influenza split virus > age 3 20:51:03 CDT CPT-60470 No Charge Offi Visit 14:52:03 CDT CPT-OV Office Visit 14:57:43 CDT CPT-OV Office Visit 15:22:32 CDT CPT-90161 Administration single or combination vaccine inc oral 11 :33:15 CDT CPT-51572 Influenza split virus > age 3 11:33:15 CDT
--- OUTSIDE RECORDS SUMMARY | 2018-04-25 13:17 | XMS REPORT | Clinical Summary ---
Author Author Admin, SACHI Clemons [facility] Address Unknown Phone Unavailable Allergies, Adverse Reactions, [...] reflux Restless leg syndrome 333.94 Active Tu Ladneros MD Restless legs syndrome (RLS) Open wound [...] Landeros MD Otalgia, unspecified Hot flashes 627.2 Active Tu Landeros MD Symptomatic menopausal or female climacteric states POSTMENOPAUSAL BLEEDING ICD-627.1 Inactive Elvira Cervantes MD [...] pain, bilateral ICD-388.70 Inactive Tu Landeros MD Medication List Medication Instructions Start Date Stop Date Generic Name NDC Status Provider Patient Instruction SIMVASTATIN 40 MG TABS 0.5 tab daily at bedtime SIMVASTATIN 78036482894 Active Tu Landeros MD Active TRUERESULT BLOOD GLUCOSE W/DEVICE KIT test blood sugar twice daily dx 250.00 BLOOD GLUCOSE MONITORING SUPPL 13955595921 No Longer Active Tu Landeros MD Active TRUEDRAW LANCING DEVICE MISC Test twice a day dx 250.0 LANCET DEVICES 79471825490 No Longer Active Tu Landeros MD Active PREDNISONE 20 MG TAB 2 tablets once daily for 2 days, then 1 tablet once daily for 2 days PREDNISONE 04930995068 No Longer Active Tu Landeros MD Active FLONASE 50 MCG/ACT SUSP 1 spray each nostril twice daily until bottle empty FLUTICASONE PROPIONATE 33369633704 Active Fab Morales DO Active DICLOFENAC SODIUM 50 MG TBEC 1 tablet by mouth three times a day as needed DICLOFENAC SODIUM 19705152983 No Longer Active Fab Morales DO Active METFORMIN HCL 850 MG TABS 1 tablet by mouth twice daily METFORMIN HCL 13767803709 Active Tu Landeros MD Active TRUEDRAW LANCING DEVICE MISC test blood sugar twice daily dx: 250.00 LANCET DEVICES 82281176220 Active Tu Landeros MD Active TRUETEST TEST INVITR STRP test blood sugar twice daily. DX 250.0 GLUCOSE BLOOD 70227324742 Active Tu Landeros MD Active EMBRACE BLOOD GLUCOSE TEST STRP test blood sugar twice daily DX 250.0 2014 GLUCOSE BLOOD 32479502244 No Longer Active Tu Landeros MD Active TRUETEST TEST STRP test blood sugar three times daily dx: 250.00 GLUCOSE BLOOD 31309878140 No Longer Active Suzebianca Nicole RMA Active TRUERESULT BLOOD GLUCOSE W/DEVICE KIT use to test blood sugar tid dx: 250.00 BLOOD GLUCOSE MONITORING SUPPL 03715855707 No Longer Active Suze Corey RMA Active ALIGN 4 MG CAPS 1 tid PROBIOTIC PRODUCT 50006492203 No Longer Active Shaun Sy MD Active CIPRO 500 MG TABS 1 bid x 14 days start 09-28-13 CIPROFLOXACIN HCL 06238157288 No Longer Active Shaun Sy MD Active TRAMADOL HCL 50 MG TABS 1-2 tablets every 6 hours as needed for pain TRAMADOL HCL 67012660039 Active Tu Landeros MD Active HYDROCODONE-ACETAMINOPHEN 5-325 MG TABS 1 tab by mouth every 6 hours as needed for pain HYDROCODONE-ACETAMINOPHEN 34780743526 No Longer Active Tu Landeros MD Active OMEPRAZOLE 20 MG CPDR 1 po q a.m. OMEPRAZOLE 13353551508 Active Elvira eCrvantes MD PhD Active GABAPENTIN 100 MG CAPS 1 po bid GABAPENTIN 36763995478 No Longer Active Tu Landeros MD Active B-12 100 MCG TABS Take one by mouth daily CYANOCOBALAMIN 27172598911 No Longer Active Tu Landeros MD Active GABAPENTIN 100 MG CAPS by mouth twice a day GABAPENTIN 28373947192 Active Tu Landeros MD Active BACTRIM DS 800-160 MG TABS 1 bid x 14 day start 09-28-13 SULFAMETHOXAZOLE-TRIMETHOPRIM 17688856444 No Longer Active Tu Landeros MD Active CARVEDILOL 12.5 MG TABS 1 po BID CARVEDILOL 61193509134 Active Tu Landeros MD Active SUPER B COMPLEX/VITAMIN C TABS 1 qd B COMPLEX-C 43925984222 Active JASPREET Perez Active TRILIPIX 135 MG CPDR 1 q hs CHOLINE FENOFIBRATE 34377779928 Active Tu Landeros MD Active FENOFIBRATE 145 MG TABS 1 po qd FENOFIBRATE 12062316167 No Longer Active JASPREET Perez Active OMEPRAZOLE 20 MG TBEC 1 PO 30 MIN BEFORE 1ST MEAL OMEPRAZOLE 29633598233 No Longer Active JASPREET Perez Active SIMVASTATIN 40 MG TABS Take one by mouth daily SIMVASTATIN 54342729701 No Longer Active JASPREET Perez Active VENLAFAXINE HCL 37.5 MG TABS 1 bid VENLAFAXINE HCL 84677480137 Active Tu Landeros MD Active VENLAFAXINE HCL 75 MG TABS 1 po BID VENLAFAXINE HCL 66875284761 No Longer Active JASPREET Perez Active CIPRO 500 MG TAB 1 tablet by mouth twice daily CIPROFLOXACIN HCL 35978299076 No Longer Active Tu Landeros MD Active VENLAFAXINE HCL 37.5 MG TABS 1 po BID VENLAFAXINE HCL 37298569655 No Longer Active Suze Corey RMA Active CVS STOOL SOFTENER 100 MG CAPS 1 tab daily DOCUSATE SODIUM 60631476292 Active Tu Landeros MD Active LAMISIL 250 MG TAB 1 po qd TERBINAFINE HCL 65223130564 No Longer Active Tu Landeros MD Active LORTAB 5 5-500 MG TABS 1/2 to 1 tablet by mouth every 4 hours as needed for pain HYDROCODONE-ACETAMINOPHEN 65409150933 No Longer Active Tu Landeros MD Active ENALAPRIL MALEATE 20 MG TABS 1.5 po qd ENALAPRIL MALEATE 89641935112 Active Tu Landeros MD Active HYDROCODONE-ACETAMINOPHEN 5-500 MG TABS take one po Q 4-6 hours prn HYDROCODONE-ACETAMINOPHEN 30192629243 No Longer Active Tu Landeros MD Active BACTRIM DS 800-160 MG TABS 1 po BID x 7 days SULFAMETHOXAZOLE-TRIMETHOPRIM 89644235152 No Longer Active Tu Landeros MD Active VENLAFAXINE HCL 75 MG TABS 1 po BID VENLAFAXINE HCL 28343804750 No Longer Active Elvira Cervantes MD PhD Active TRAMADOL HCL 50 MG TABS 1 tablets every 6 hours as needed for pain TRAMADOL HCL 24602620936 No Longer Active Tu Landeros MD Active ACCU-CHEK FASTCLIX LANCETS MISC Use to check bloodsugar three times daily as needed LANCETS 12197050822 No Longer Active Tu Landeros MD Active ACCU-CHEK KEYONA PLUS STRP Use for testing bloodsugars three times daily as needed GLUCOSE BLOOD 39325545512 No Longer Active Tu Landeros MD Active ACCU-CHEK KEYONA PLUS W/DEVICE KIT Use for testing bloodsugars three times daily as needed BLOOD GLUCOSE MONITORING SUPPL 20483705433 No Longer Active Tu Landeros MD Active SPIRONOLACTONE 25 MG TAB 0.5 tablet by mouth daily SPIRONOLACTONE 11945577144 No Longer Active Tu Landeros MD Active ALPRAZOLAM 0.5 MG TABS 1 tab every 6hrs as needed ALPRAZOLAM 45323986181 No Longer Active Tu Landeros MD Active AUGMENTIN 875-125 MG TAB 1 tab by mouth twice daily with food AMOXICILLIN-POT CLAVULANATE 75582608241 No Longer Active Tu Landeros MD Active PREDNISONE 20 MG TAB 2 tabs daily for 3 days, 1 tab daily for 3 days, 1/2 tab daily for 2 days PREDNISONE 60781507524 No Longer Active Tu Landeros MD Active XANAX 0.5 MG TABS 1 tablet every 6 hrs prn ALPRAZOLAM 17388073815 No Longer Active Tu Landeros MD Active PREDNISONE 20 MG TAB 2 tabs daily for 3 days, 1 tab daily for 3 days, 1/2 tab daily for 2 days PREDNISONE 59993334294 No Longer Active Tu Landeros MD Active TRIAMCINOLONE ACETONIDE 0.1 % OINT Apply to affected areas TID for up to 2 weeks TRIAMCINOLONE ACETONIDE 80942108910 No Longer Active Tu Landeros MD Active LORTAB 5 5-500 MG TABS 1/2 to 1 tablet by mouth every 4 hours as needed for pain HYDROCODONE-ACETAMINOPHEN 21151749565 No Longer Active Tu Landeros MD Active MULTIVITAMINS TABS Take one by mouth daily MULTIPLE VITAMIN 39656079421 No Longer Active Tu Landeros MD Active MELATONIN 5 MG TABS Take one by mouth daily MELATONIN 85930852188 No Longer Active Tu Landeros MD Active SOMA 350 MG TAB 1 po q 6 hours prn spasm CARISOPRODOL 71577607302 No Longer Active Tu Landeros MD Active MECLIZINE HCL 25 MG CHEW TAB 1 four times a day as needed for dizziness 08/05 MECLIZINE HCL 94348783699 No Longer Active Fab Morales DO Active ANGEL NIKKOEZE 2 TEST DISK test tid prn GLUCOSE BLOOD 29201449934 No Longer Active Negra Scott RN Active REGLAN 10 MG TAB 1 po TID PRN Nausea METOCLOPRAMIDE HCL 42560472966 No Longer Active Tu Landeros MD Active METFORMIN HCL 500 MG TABS 1 PO BID METFORMIN HCL 22046562364 No Longer Active Tu Landeros MD Active AMBIEN 10 MG TAB 1 tab by mouth at bedtime as needed for sleep ZOLPIDEM TARTRATE 73473521119 No Longer Active Tu Landeros MD Active FLUOXETINE HCL 40 MG CAPS 1 po q day FLUOXETINE HCL 20335356920 No Longer Active Mayra Carlton Active FISH OIL 1000 MG CAPS Take one by mouth daily OMEGA-3 FATTY ACIDS 08367271858 Active Tu Landeros MD Active GLUCOSAMINE 500 MG TABS Take 2 tab po qd GLUCOSAMINE 80071931474 Active Tu Landeros MD Active TRILIPIX 135 MG CPDR 1 po qd CHOLINE FENOFIBRATE 20996717633 No Longer Active Tu Landeros MD Active ASPIRIN 81 MG CHEW TAB 1 tablet by mouth daily ASPIRIN 86259842907 Active Tu Landeros MD Active FUROSEMIDE 40 MG TAB 1 tablet by mouth daily FUROSEMIDE 75253095177 Active Tu Landeros MD Active REQUIP 2 MG TABS Take one tablet at bedtime prn ROPINIROLE HCL 45619122864 Active Tu Landeros MD Active KLOR-CON 10 10 MEQ CR-TABS TAKE 2 TABS DAILY POTASSIUM CHLORIDE 93660528605 Active Tu Landeros MD Active AMBIEN 10 MG TAB 1 tab by mouth at bedtime as needed for sleep AMBIEN 10 MG TAB 467028 ZOLPIDEM TARTRATE Inactive METFORMIN HCL 500 MG TABS 1 PO BID METFORMIN HCL 500 MG TABS 940978 METFORMIN HCL Inactive REGLAN 10 MG TAB 1 po TID PRN Nausea REGLAN 10 MG TAB 801751 METOCLOPRAMIDE HCL Inactive MECLIZINE HCL 25 MG CHEW TAB 1 four times a day as needed for dizziness 08/05 MECLIZINE HCL 25 MG CHEW TAB 235150 MECLIZINE HCL Inactive SOMA 350 MG TAB 1 po q 6 hours prn spasm SOMA 350 MG TAB 914824 CARISOPRODOL Inactive MELATONIN 5 MG TABS Take one by mouth daily MELATONIN 5 MG TABS 047404 MELATONIN Inactive MULTIVITAMINS TABS Take one by mouth daily MULTIVITAMINS TABS MULTIPLE VITAMIN Inactive LORTAB 5 5-500 MG TABS 1/2 to 1 tablet by mouth every 4 hours as needed for pain LORTAB 5 5-500 MG TABS HYDROCODONE- ACETAMINOPHEN Inactive XANAX 0.5 MG TABS 1 tablet every 6 hrs prn XANAX 0.5 MG TABS 762813 ALPRAZOLAM Inactive AUGMENTIN 875-125 MG TAB 1 tab by mouth twice daily with food AUGMENTIN 875-125 MG TAB 948812 AMOXICILLIN-POT CLAVULANATE Inactive ALPRAZOLAM 0.5 MG TABS 1 tab every 6hrs as needed ALPRAZOLAM 0.5 MG TABS 191028 ALPRAZOLAM Inactive SPIRONOLACTONE 25 MG TAB 0.5 tablet by mouth daily SPIRONOLACTONE 25 MG TAB 983393 SPIRONOLACTONE Inactive ACCU-CHEK KEYONA PLUS W/DEVICE KIT Use for testing bloodsugars three times daily as needed ACCU-CHEK KEYONA PLUS W/DEVICE KIT BLOOD GLUCOSE MONITORING SUPPL Inactive ACCU-CHEK KEYONA PLUS STRP Use for testing bloodsugars three times daily as needed ACCU-CHEK KEYONA PLUS STRP GLUCOSE BLOOD Inactive ACCU-CHEK FASTCLIX LANCETS MISC Use to check bloodsugar three times daily as needed ACCU-CHEK FASTCLIX LANCETS MISC 30447750846 LANCETS Inactive TRAMADOL HCL 50 MG TABS 1 tablets every 6 hours as needed for pain TRAMADOL HCL 50 MG TABS 239220 TRAMADOL HCL Inactive VENLAFAXINE HCL 75 MG TABS 1 po BID VENLAFAXINE HCL 75 MG TABS 160460 VENLAFAXINE HCL Inactive HYDROCODONE-ACETAMINOPHEN 5-500 MG TABS take one po Q 4-6 hours prn HYDROCODONE-ACETAMINOPHEN 5-500 MG TABS HYDROCODONE- ACETAMINOPHEN Inactive LORTAB 5 5-500 MG TABS 1/2 to 1 tablet by mouth every 4 hours as needed for pain LORTAB 5 5-500 MG TABS HYDROCODONE- ACETAMINOPHEN Inactive LAMISIL 250 MG TAB 1 po qd LAMISIL 250 MG TAB 941314 TERBINAFINE HCL Inactive VENLAFAXINE HCL 37.5 MG TABS 1 po BID VENLAFAXINE HCL 37.5 MG TABS 632802 VENLAFAXINE HCL Inactive CIPRO 500 MG TAB 1 tablet by mouth twice daily CIPRO 500 MG TAB 829079 CIPROFLOXACIN HCL Inactive VENLAFAXINE HCL 75 MG TABS 1 po BID VENLAFAXINE HCL 75 MG TABS 171843 VENLAFAXINE HCL Inactive SIMVASTATIN 40 MG TABS Take one by mouth daily SIMVASTATIN 40 MG TABS 422042 SIMVASTATIN Inactive OMEPRAZOLE 20 MG TBEC 1 PO 30 MIN BEFORE 1ST MEAL OMEPRAZOLE 20 MG TBEC 234940 OMEPRAZOLE Inactive FENOFIBRATE 145 MG TABS 1 po qd FENOFIBRATE 145 MG TABS 099260 FENOFIBRATE Inactive BACTRIM DS 800-160 MG TABS 1 bid x 14 day start 09-28-13 BACTRIM DS 800-160 MG TABS SULFAMETHOXAZOLE-TRIMETHOPRIM Inactive B-12 100 MCG TABS Take one by mouth daily B-12 100 MCG TABS CYANOCOBALAMIN Inactive GABAPENTIN 100 MG CAPS 1 po bid GABAPENTIN 100 MG CAPS 697627 GABAPENTIN Inactive HYDROCODONE-ACETAMINOPHEN 5-325 MG TABS 1 tab by mouth every 6 hours as needed for pain HYDROCODONE-ACETAMINOPHEN 5-325 MG TABS 143303 HYDROCODONE-ACETAMINOPHEN Inactive CIPRO 500 MG TABS 1 bid x 14 days start -814 CIPRO 500 MG TABS 797526 CIPROFLOXACIN HCL Inactive ALIGN 4 MG CAPS [...] as needed DICLOFENAC SODIUM 50 MG TBEC 201411 DICLOFENAC SODIUM Inactive PREDNISONE 20 MG TAB 2 tablets once daily for 2 days, then 1 tablet once daily for 2 days PREDNISONE 20 MG TAB 313838 PREDNISONE Inactive TRUEDRAW LANCING DEVICE MISC Test twice a day dx 250.0 TRUEDRAW LANCING DEVICE MISC LANCET DEVICES Inactive TRUERESULT BLOOD GLUCOSE W/DEVICE KIT test blood sugar twice daily dx 250.00 TRUERESULT BLOOD GLUCOSE W/DEVICE KIT BLOOD GLUCOSE MONITORING SUPPL Inactive TRIAMCINOLONE ACETONIDE 0.1 % OINT Apply to affected areas TID for up to 2 weeks TRIAMCINOLONE ACETONIDE 0.1 % OINT 8429371 TRIAMCINOLONE ACETONIDE Inactive PREDNISONE 20 MG TAB 2 tabs daily for 3 days, 1 tab daily for 3 days, 1/2 tab daily for 2 days PREDNISONE 20 MG TAB 974143 PREDNISONE Inactive PREDNISONE 20 MG TAB 2 tabs daily for 3 days, 1 tab daily for 3 days, 1/2 tab daily for 2 days PREDNISONE 20 MG TAB 154990 PREDNISONE Inactive BACTRIM DS 800-160 MG TABS 1 po BID x 7 days BACTRIM DS 800-160 MG TABS SULFAMETHOXAZOLE-TRIMETHOPRIM Inactive Immunizations Vaccine Administration Date Value Standard Description Seasonal influenza vaccine, injectable, containing preservative, for > 3 years old (Afluria, FluLaval, Fluzone, Fluvirin, Fluarix, Agriflu(>=18 yo)) Fluzone (>3 yrs.) [[id number]] Influenza, seasonal, injectable influenza immunization (Flu Vax) has been administered 02/22/2012 influenza virus vaccine, unspecified formulation Seasonal influenza vaccine, injectable, containing preservative, for > 3 years old (Afluria, FluLaval, Fluzone, Fluvirin, Fluarix, Agriflu(>=18 yo)) Fluzone (>3 yrs.) [[id number]] Influenza, seasonal, injectable Vital Signs Date Name Value Unit Range Description blood pressure, diastolic - 8462-4 86 mm[Hg] [...] E&M - 3141-9 314.2 [lb_av] Weight Measured Diagnostic Results Date Name Value Unit Range Description Chart Maintenance: Outside labs entered on flowsheet - Chemistry hemoglobin A1C, blood, as % of total hemoglobin 6.4 % Lab Report: Basic Metabolic Panel, CBC - Chemistry sodium, serum 143 mmol/L 148-833 9149/03/10 potassium, serum 4.9 mmol/L 3.5-5.2 chloride, serum [...] count 275 10^3/MM^3 10*3/mm3 142-424 Lab Report: HEPATIC PANEL, Lipid Panel - Chemistry aspartate aminotransferase (SGOT), serum 18 U/L 15-37 alanine aminotransferase (SGPT), serum 32 U/L 12-78 bilirubin, serum, total 0.30 mg/dL 0.00-1.00 cholesterol, serum 111 mg/dL 074-603 4322/07/28 triglyceride, serum, fasting 177 mg/dL 30-200 HDL [...] stimulating hormone, serum 5.5 m[iU]/mL Lab Report: MICROALBUMIN - Chemistry albumin/creatinine ratio, urine < 30 mg/g mg/g{creat} 0-29 Lab Report: MICROALBUMIN - Lab microalbumin, urine 10 0-19 Office Visit: Abdominal Wound - Chemistry cholesterol, target level 200 mg/dL triglyceride, target level 200 mg/dL HDL cholesterol, serum, target level 35 mg/dL LDL target level 100 mg/dL Encounters Code Encounter Date Provider Facility CPT-89361 Level 4 Est. Patient 11:03:38 CDT Tu Landeros MD [facility] CPT-88861 Level 3 Est. Patient 10:20:44 CDT Fab Morales DO [facility] CPT-88223 Level 4 Est. Patient 14:38:57 CDT Tu Landeros MD [facility] CPT-53587 Level 4 Est. Patient 14:27:39 ADJUNCT IN[employer]OMEN[employer] Tu Landeros MD [facility] CPT-76771 Level 4 Est. Patient 09:45:25 CDT Tu Landeros MD [facility] CPT-94648 Level 4 Est. Patient 09:05:20 ADJUNCT IN[employer]CTOR [employer] WOMEN'[employer]UDIES Tu Landeros MD [facility] CPT-47970 Level 4 Est. Patient 14:09:06 CDT Tu Landeros MD [facility] CPT-14217 Level 3 Est. Patient 13:36:54 CDT Tu Landeros MD [facility] CPT-22347 Level 3 Est. Patient 08:59:14 CDT Tu Landeros MD [facility] CPT-54652 Level 3 Est. Patient 13:48:35 CDT Fab Morales DO [facility] CPT-85576 Level 4 Est. Patient 10:05:48 CDT Tu Landeros MD [facility] CPT-22579 Level 3 Est. Patient 13:38:42 CDT Marek BANKS [facility] CPT-90962 Level 5 Est. Patient 08:08:39 CDT Jerrica FRANCIS [facility] CPT-71623 Level 4 Est. Patient 14:23:38 CDT Tu Landeros MD [facility] CPT-83440 Level 3 Est. Patient 11:44:04 CDT Tu Landeros MD [facility] CPT-34990 Level 3 Est. Patient 11:03:20 ADJUNCT IN[employer]CTOR [employer]OMEN[employer] Tu Landeros MD [facility] CPT-25904 Level 3 Est. Patient 11:03:14 ADJUNCT IN[employer]CTOR [employer] WOMEN[employer]IES Tu Landeros MD [facility] CPT-69197 Level 3 Est. Patient 12:42:49 CDT Tu Landeros MD [facility] CPT-63832 Level 3 Est. Patient 11:52:06 CDT Tu Landeros MD [facility] CPT-46172 Level 3 Est. Patient 13:58:11 CDT Tu Landeros MD [facility] CPT-74844 Level 3 Est. Patient 17:50:07 CDT Fab Morales DO [facility] CPT-46383 Level 3 Est. Patient 12:06:29 CDT Elvira Cervantes MD PhD [facility] CPT-36851 Level 3 Est. Patient 15:50:32 CDT Tu Landeros MD [facility] CPT-52535 Level 4 Est. Patient 16:08:29 CDT Tu Landeros MD [facility] CPT-10301 Level 3 Est. Patient 16:04:19 CDT Tu Landeros MD [facility] CPT-59109 Level 3 Est. Patient 11:22:30 ADJUNCT IN[employer]CTOR [employer]OMEN[employer]IES Tu Landeros MD [facility] CPT-67462 Level 4 Est. Patient 16:24:02 ADJUNCT IN[employer]CTOR [employer]OMEN[employer]IES Tu Landeros MD [facility] CPT-56887 Level 3 Est. Patient 17:21:23 ADJUNCT IN[employer]OMEN[employer] Tu Landeros MD [facility] Procedures Code Procedure Name Date Entry Date Standard Description CPT-JTINJ Asp/Joint Injection 15:51:27 ADJUNCT [employer] CPT-OV Office Visit 15:52:02 ADJUNCT IN[employer] CPT-OV Office Visit 15:45:11 CDT CPT-000 Give Zostavax 14:09:06 CDT CPT-64492 Administration single or combination vaccine inc oral 15 :19:04 CDT CPT-86994 Zoster Vaccine (Zostavax) 15:19:04 CDT CPT-40339 Administration single or combination vaccine inc oral 20 :51:03 CDT CPT-74620 Influenza split virus > age 3 20:51:03 CDT CPT-22579 No Charge Offi Visit 14:52:03 CDT CPT-OV Office Visit 14:57:43 CDT CPT-OV Office Visit 15:22:32 CDT CPT-24581 Administration single or combination vaccine inc oral 11 :33:15 CDT CPT-40543 Influenza split virus > age 3 11:33:15 CDT
--- OUTSIDE RECORDS SUMMARY | 2018-04-25 13:18 | XMS REPORT | Clinical Summary ---
Author Author Admin, SACHI Organization [employer] Address Unknown Phone Unavailable Allergies, Adverse Reactions, [...] blood sugar BID Dx: E11.9 GLUCOSE BLOOD 93327903133 Active Tu Landeros MD Active TRUE METRIX AIR GLUCOSE METER W/DEVICE KIT Test blood glucose BID Dx: E11.9 BLOOD GLUCOSE MONITORING SUPPL 64715645521 Active uT Landeros MD Active TRUETEST TEST INVITR STRP test blood sugar twice daily. DX 250.0 GLUCOSE BLOOD 63970219691 No Longer Active Mirna Stanley LPN Active TRUEDRAW LANCING DEVICE MISC test blood sugar twice daily dx: 250.00 LANCET DEVICES 28911047665 No Longer Active Mirna Stanley LPN Active ENALAPRIL MALEATE 20 MG TABS 2 po qd ENALAPRIL MALEATE 51082226238 Active Tu Landeros MD Active SUPER B COMPLEX/VITAMIN C TABS 1 qd B COMPLEX-C 55397660652 No Longer Active Tu Landeros MD Active ASPIRIN EC 81 MG ORAL TBEC 1 po qd ASPIRIN 24677230639 Active Tu Landeros MD Active GLUCOSAMINE 500 MG TABS 2 po qd GLUCOSAMINE Active Tu Landeros MD Active SIMVASTATIN 40 MG TABS 0.5 po qHS SIMVASTATIN 48609330060 Active Tu Landeros MD Active FISH OIL 1000 MG CAPS 1 po qd OMEGA-3 FATTY ACIDS 49553674820 Active Tu Landeros MD Active METFORMIN HCL 1000 MG TABS 1 po BID METFORMIN HCL 10634796987 Active Tu Landeros MD Active KLOR-CON 10 10 MEQ CR-TABS 2 po qd POTASSIUM CHLORIDE 81253320953 Active Tu Landeros MD Active FUROSEMIDE 40 MG TAB 1 po qd FUROSEMIDE 39532769510 Active Tu Landeros MD Active REQUIP 2 MG ORAL TABS 1 po qHS PRN Restless legs ROPINIROLE HCL 41409654625 Active Tu Landeros MD Active VENLAFAXINE HCL 37.5 MG TABS 1 po BID VENLAFAXINE HCL 82104584640 Active Tu Landeros MD Active GABAPENTIN 100 MG CAPS 1 po BID GABAPENTIN 97429720340 Active José Luis Becerra MD Active REQUIP 2 MG TABS Take one tablet at bedtime prn ROPINIROLE HCL 55680050969 No Longer Active Tu Landeros MD Active VENTOLIN HFA 108 (90 BASE) MCG/ACT AERS 1-2 puffs every 4 hours if needed for cough/congestion ALBUTEROL SULFATE 60189959124 No Longer Active Ambika Aden APRN Active ZITHROMAX 250 MG TAB 2 po today, then 1 po q days 2-5 AZITHROMYCIN 00455971602 No Longer Active Miranda Suresh APRN Active FLONASE 50 MCG/ACT SUSP 1 spray each nostril twice daily until bottle empty FLUTICASONE PROPIONATE 93921367274 No Longer Active Tu Landeros MD Active COLACE 100 MG CAP 1 po BID PRN Constipation DOCUSATE SODIUM 04076058038 Active Tu Landeros MD Active TRUERESULT BLOOD GLUCOSE W/DEVICE KIT test blood sugar twice daily dx 250.00 BLOOD GLUCOSE MONITORING SUPPL 53941786868 No Longer Active Tu Landeros MD Active TRUEDRAW LANCING DEVICE MISC Test twice a day dx 250.0 LANCET DEVICES 43415198995 No Longer Active Tu Landeros MD Active PREDNISONE 20 MG TAB 2 tablets once daily for 2 days, then 1 tablet once daily for 2 days PREDNISONE 80900161298 No Longer Active Tu Landeros MD Active DICLOFENAC SODIUM 50 MG TBEC 1 tablet by mouth three times a day as needed DICLOFENAC SODIUM 50944084454 No Longer Active Fab Morales DO Active EMBRACE BLOOD GLUCOSE TEST STRP test blood sugar twice daily DX 250.0 2014 GLUCOSE BLOOD 39078941625 No Longer Active Tu Landeros MD Active TRUETEST TEST STRP test blood sugar three times daily dx: 250.00 GLUCOSE BLOOD 83863382018 No Longer Active Suzebianca VOGEL Active TRUERESULT BLOOD GLUCOSE W/DEVICE KIT use to test blood sugar tid dx: 250.00 BLOOD GLUCOSE MONITORING SUPPL 01492313655 No Longer Active Suze VOGEL Active ALIGN 4 MG CAPS 1 tid PROBIOTIC PRODUCT 32265938447 No Longer Active Shaun Sy MD Active CIPRO 500 MG TABS 1 bid x 14 days start 09-28-13 CIPROFLOXACIN HCL 29965676332 No Longer Active Shaun Sy MD Active TRAMADOL HCL 50 MG TABS 1-2 tablets every 6 hours as needed for pain TRAMADOL HCL 09623102310 Active Tu Landeros MD Active HYDROCODONE-ACETAMINOPHEN 5-325 MG TABS 1 tab by mouth every 6 hours as needed for pain HYDROCODONE-ACETAMINOPHEN 81138261707 No Longer Active Tu Landeros MD Active OMEPRAZOLE 20 MG CPDR 1 po q a.m. OMEPRAZOLE 01546051910 Active Tu Landeros MD Active GABAPENTIN 100 MG CAPS 1 po bid GABAPENTIN 13218744890 No Longer Active Tu Landeros MD Active B-12 100 MCG TABS Take one by mouth daily CYANOCOBALAMIN 44509500462 No Longer Active Tu Landeros MD Active BACTRIM DS 800-160 MG TABS 1 bid x 14 day start 09-28-13 SULFAMETHOXAZOLE-TRIMETHOPRIM 73567959789 No Longer Active Tu Landeros MD Active CARVEDILOL 12.5 MG TABS 1 po BID CARVEDILOL 16392396996 Active Tu Landeros MD Active TRILIPIX 135 MG CPDR 1 q hs CHOLINE FENOFIBRATE 64775130819 Active Tu Landeros MD Active FENOFIBRATE 145 MG TABS 1 po qd FENOFIBRATE 68934771292 No Longer Active JASPREET Perez Active OMEPRAZOLE 20 MG TBEC 1 PO 30 MIN BEFORE 1ST MEAL OMEPRAZOLE 44703503139 No Longer Active JASPREET Perez Active SIMVASTATIN 40 MG TABS Take one by mouth daily SIMVASTATIN 89496890126 No Longer Active JASPREET Perez Active VENLAFAXINE HCL 75 MG TABS 1 po BID VENLAFAXINE HCL 15247261995 No Longer Active JASPREET Perez Active CIPRO 500 MG TAB 1 tablet by mouth twice daily CIPROFLOXACIN HCL 55704501528 No Longer Active Tu Landeros MD Active VENLAFAXINE HCL 37.5 MG TABS 1 po BID VENLAFAXINE HCL 64374665431 No Longer Active Suzebianca NUNOA Active LAMISIL 250 MG TAB 1 po qd TERBINAFINE HCL 75484866118 No Longer Active Tu Landeros MD Active LORTAB 5 5-500 MG TABS 1/2 to 1 tablet by mouth every 4 hours as needed for pain HYDROCODONE-ACETAMINOPHEN 01269039402 No Longer Active Tu Landeros MD Active HYDROCODONE-ACETAMINOPHEN 5-500 MG TABS take one po Q 4-6 hours prn HYDROCODONE-ACETAMINOPHEN 05618239397 No Longer Active Tu Landeros MD Active BACTRIM DS 800-160 MG TABS 1 po BID x 7 days SULFAMETHOXAZOLE-TRIMETHOPRIM 11892704928 No Longer Active Tu Landeros MD Active VENLAFAXINE HCL 75 MG TABS 1 po BID VENLAFAXINE HCL 28957647405 No Longer Active Elvira Cervantes MD PhD Active TRAMADOL HCL 50 MG TABS 1 tablets every 6 hours as needed for pain TRAMADOL HCL 31497948628 No Longer Active Tu Landeros MD Active ACCU-CHEK FASTCLIX LANCETS MISC Use to check bloodsugar three times daily as needed LANCETS 75521166546 No Longer Active Tu Landeros MD Active ACCU-CHEK KEYONA PLUS STRP Use for testing bloodsugars three times daily as needed GLUCOSE BLOOD 29392022415 No Longer Active Tu Landeros MD Active ACCU-CHEK KEYONA PLUS W/DEVICE KIT Use for testing bloodsugars three times daily as needed BLOOD GLUCOSE MONITORING SUPPL 99967920167 No Longer Active Tu Landeros MD Active SPIRONOLACTONE 25 MG TAB 0.5 tablet by mouth daily SPIRONOLACTONE 52583677624 No Longer Active Tu Landeros MD Active ALPRAZOLAM 0.5 MG TABS 1 tab every 6hrs as needed ALPRAZOLAM 13952486384 No Longer Active Tu Landeros MD Active AUGMENTIN 875-125 MG TAB 1 tab by mouth twice daily with food AMOXICILLIN-POT CLAVULANATE 44438803454 No Longer Active Tu Landeros MD Active PREDNISONE 20 MG TAB 2 tabs daily for 3 days, 1 tab daily for 3 days, 1/2 tab daily for 2 days PREDNISONE 70941066210 No Longer Active Tu Landeros MD Active XANAX 0.5 MG TABS 1 tablet every 6 hrs prn ALPRAZOLAM 43409503482 No Longer Active Tu Landeros MD Active PREDNISONE 20 MG TAB 2 tabs daily for 3 days, 1 tab daily for 3 days, 1/2 tab daily for 2 days PREDNISONE 86738011270 No Longer Active Tu Landeros MD Active TRIAMCINOLONE ACETONIDE 0.1 % OINT Apply to affected areas TID for up to 2 weeks TRIAMCINOLONE ACETONIDE 97543619246 No Longer Active Tu Landeros MD Active LORTAB 5 5-500 MG TABS 1/2 to 1 tablet by mouth every 4 hours as needed for pain HYDROCODONE-ACETAMINOPHEN 43602159534 No Longer Active Tu Landeros MD Active MULTIVITAMINS TABS Take one by mouth daily MULTIPLE VITAMIN 91567537259 No Longer Active Tu Landeros MD Active MELATONIN 5 MG TABS Take one by mouth daily MELATONIN 51516277251 No Longer Active Tu Landeros MD Active SOMA 350 MG TAB 1 po q 6 hours prn spasm CARISOPRODOL 31613392971 No Longer Active Tu Landeros MD Active MECLIZINE HCL 25 MG CHEW TAB 1 four times a day as needed for dizziness 08/05 MECLIZINE HCL 12691656329 No Longer Active Fab Morales DO Active ANGEL BREEZE 2 TEST DISK test tid prn GLUCOSE BLOOD 56258636313 No Longer Active Negra Scott RN Active REGLAN 10 MG TAB 1 po TID PRN Nausea METOCLOPRAMIDE HCL 00503674066 No Longer Active Tu Landeros MD Active METFORMIN HCL 500 MG TABS 1 PO BID METFORMIN HCL 53471764808 No Longer Active Tu Landeros MD Active AMBIEN 10 MG TAB 1 tab by mouth at bedtime as needed for sleep ZOLPIDEM TARTRATE 31776339135 No Longer Active Tu Landeros MD Active FLUOXETINE HCL 40 MG CAPS 1 po q day FLUOXETINE HCL 53036417901 No Longer Active Mayra Terry Active TRILIPIX 135 MG CPDR 1 po qd CHOLINE FENOFIBRATE 53274269258 No Longer Active Tu Landeros MD Active ALPRAZOLAM 0.5 MG TABS 1 tab every 6hrs as needed ALPRAZOLAM 0.5 MG TABS 756181 ALPRAZOLAM Inactive AMBIEN 10 MG TAB 1 tab by mouth at bedtime as needed for sleep AMBIEN 10 MG TAB 377126 ZOLPIDEM TARTRATE Inactive BACTRIM DS 800-160 MG TABS 1 po BID x 7 days BACTRIM DS 800-160 MG TABS 592943 SULFAMETHOXAZOLE-TRIMETHOPRIM Inactive BACTRIM DS 800-160 MG TABS 1 bid x 14 day start 09-28-13 BACTRIM DS 800-160 MG TABS 788913 SULFAMETHOXAZOLE-TRIMETHOPRIM Inactive CIPRO 500 MG TABS 1 bid x 14 days start 09-28-13 CIPRO 500 MG TABS 305039 CIPROFLOXACIN HCL Inactive CIPRO 500 MG TAB 1 tablet by mouth twice daily CIPRO 500 MG TAB 478571 CIPROFLOXACIN HCL Inactive MECLIZINE HCL 25 MG CHEW TAB 1 four times a day as needed for dizziness 08/05 MECLIZINE HCL 25 MG CHEW TAB 119801 MECLIZINE HCL Inactive MULTIVITAMINS TABS Take one by mouth daily MULTIVITAMINS TABS MULTIPLE VITAMIN Inactive PREDNISONE 20 MG TAB 2 tabs daily for 3 days, 1 tab daily for 3 days, 1/2 tab daily for 2 days PREDNISONE 20 MG TAB 311032 PREDNISONE Inactive PREDNISONE 20 MG TAB 2 tabs daily for 3 days, 1 tab daily for 3 days, 1/2 tab daily for 2 days PREDNISONE 20 MG TAB 137955 PREDNISONE Inactive PREDNISONE 20 MG TAB 2 tablets once daily for 2 days, then 1 tablet once daily for 2 days PREDNISONE 20 MG TAB 468416 PREDNISONE Inactive REGLAN 10 MG TAB 1 po TID PRN Nausea REGLAN 10 MG TAB 802601 METOCLOPRAMIDE HCL Inactive SOMA 350 MG TAB 1 po q 6 hours prn spasm SOMA 350 MG TAB 463452 CARISOPRODOL Inactive SPIRONOLACTONE 25 MG TAB 0.5 tablet by mouth daily SPIRONOLACTONE 25 MG TAB 692332 SPIRONOLACTONE Inactive TRIAMCINOLONE ACETONIDE 0.1 % OINT Apply to affected areas TID for up to 2 weeks TRIAMCINOLONE ACETONIDE 0.1 % OINT 9611387 TRIAMCINOLONE ACETONIDE Inactive XANAX 0.5 MG TABS 1 tablet every 6 hrs prn XANAX 0.5 MG TABS 090205 ALPRAZOLAM Inactive METFORMIN HCL 500 MG TABS 1 PO BID METFORMIN HCL 500 MG TABS 001923 METFORMIN HCL Inactive SIMVASTATIN 40 MG TABS Take one by mouth daily SIMVASTATIN 40 MG TABS 110227 SIMVASTATIN Inactive VENLAFAXINE HCL 75 MG TABS 1 po BID VENLAFAXINE HCL 75 MG TABS 890869 VENLAFAXINE HCL Inactive VENLAFAXINE HCL 75 MG TABS 1 po BID VENLAFAXINE HCL 75 MG TABS 220342 VENLAFAXINE HCL Inactive VENLAFAXINE HCL 37.5 MG TABS 1 po BID VENLAFAXINE HCL 37.5 MG TABS 297891 VENLAFAXINE HCL Inactive LORTAB 5 5-500 MG [...] for pain TRAMADOL HCL 50 MG TABS 960180 TRAMADOL HCL Inactive HYDROCODONE-ACETAMINOPHEN 5-500 MG TABS take one po Q 4-6 hours prn HYDROCODONE-ACETAMINOPHEN 5-500 MG TABS HYDROCODONE- ACETAMINOPHEN Inactive DICLOFENAC SODIUM 50 MG TBEC 1 tablet by mouth three times a day as needed DICLOFENAC SODIUM 50 MG TBEC 455947 DICLOFENAC SODIUM Inactive AUGMENTIN 875-125 MG TAB 1 tab by mouth twice daily with food AUGMENTIN 875-125 MG TAB 742584 AMOXICILLIN-POT CLAVULANATE Inactive LAMISIL 250 MG TAB 1 po qd LAMISIL 250 MG TAB 336965 TERBINAFINE HCL Inactive MELATONIN 5 MG TABS Take one by mouth daily MELATONIN 5 MG TABS 656159 MELATONIN Inactive GABAPENTIN 100 MG CAPS 1 po bid GABAPENTIN 100 MG CAPS 213533 GABAPENTIN Inactive ZITHROMAX 250 MG TAB 2 po today, then 1 po q days 2-5 ZITHROMAX 250 MG TAB 0822024 AZITHROMYCIN Inactive SUPER B COMPLEX/VITAMIN C TABS 1 qd SUPER B COMPLEX/ VITAMIN C TABS 04890773687 B COMPLEX-C Inactive REQUIP 2 MG TABS Take one tablet at bedtime prn REQUIP 2 MG TABS 511607 ROPINIROLE HCL Inactive FLONASE 50 MCG/ACT SUSP [...] needed for pain HYDROCODONE-ACETAMINOPHEN 5-325 MG TABS 068560 HYDROCODONE-ACETAMINOPHEN Inactive FENOFIBRATE 145 MG TABS 1 po qd FENOFIBRATE 145 MG TABS 414641 FENOFIBRATE Inactive OMEPRAZOLE 20 MG TBEC 1 PO 30 MIN BEFORE 1ST MEAL OMEPRAZOLE 20 MG TBEC 372634 OMEPRAZOLE Inactive TRUERESULT BLOOD GLUCOSE W/DEVICE KIT [...] daily as needed ACCU-CHEK FASTCLIX LANCETS MISC 40462243535 LANCETS Inactive ACCU-CHEK KEYONA PLUS STRP Use [...] Fluvirin, Fluarix, Agriflu(>=18 yo)) Fluzone (>3 yrs.) [VNB201] Influenza, seasonal, injectable influenza immunization (Flu Vax) has been administered 02/22/2012 influenza virus vaccine, unspecified formulation Seasonal influenza vaccine, injectable, containing preservative, for > 3 years old (Afluria, FluLaval, Fluzone, Fluvirin, Fluarix, Agriflu(>=18 yo)) Fluzone (>3 yrs.) [[id number]] Influenza, seasonal, injectable Vital Signs Date Name [...] Magnesium - Chemistry sodium, serum 143 mmol/L 147-439 9955/01/10 carbon dioxide, venous blood 28.0 mmol/L 21.0-32.0 potassium, serum 4.5 mmol/L 3.5-5.2 chloride, serum 104 mmol/L 98-107 blood glucose 158 mg/dL 65-110 urea nitrogen, blood 23 mg/dL 7-18 creatinine, serum 1.06 mg/dL 0.55-1.30 alanine aminotransferase (SGPT), serum 42 U/L 12-78 aspartate aminotransferase (SGOT), serum 32 U/L 15-37 calcium, serum 9.3 mg/dL 8.5-10.1 bilirubin, serum, total 0.20 mg/dL 0.00-1.00 cholesterol, serum 177 mg/dL 937-623 8050/01/10 triglyceride, serum, fasting 320 mg/dL 30-200 HDL cholesterol, serum 46 mg/dL 32-96 LDL cholesterol, serum 67 mg/dL 0-130 Lab Report: HGBA1C - Chemistry hemoglobin A1C, blood, as % of total hemoglobin 7.1 % 4.3-6.0 hemoglobin A1C, blood, as % of total hemoglobin 7.4 % 4.3-6.0 sodium, serum 140 mmol/L 847-712 5470/09/07 potassium, serum 4.3 mmol/L 3.5-5.2 chloride, serum [...] <30 Encounters Code Encounter Date Provider Facility CPT-35363 Level 4 Est. Patient 09:08:17 BOG WORKER Tu Landeros MD [facility] CPT-73184 Level 4 Est. Patient 14:40:19 CDT Tu Landeros MD [facility] CPT-70678 Level 4 Est. Patient 14:06:04 BOG WORKER Tu Landeros MD [facility] CPT-39789 Level 3 Est. Patient 14:05:18 BOG WORKER Tu Landeros MD [facility] CPT-08993 Level 3 Est. Patient 10:06:54 BOG WORKER Miranda Suresh APRN [facility] CPT-10919 Level 4 Est. Patient 13:50:18 BOG WORKER Tu Landeros MD [facility] CPT-77741 Level 3 Est. Patient 10:30:04 CDT Tu Landeros MD [facility] CPT-30208 Level 4 Est. Patient 11:03:38 CDT Tu Landeros MD [facility] CPT-14033 Level 3 Est. Patient 10:20:44 CDT Fab Morales DO [facility] CPT-94686 Level 4 Est. Patient 14:38:57 CDT Tu Landeros MD [facility] CPT-66031 Level 4 Est. Patient 14:27:39 BOG WORKER Tu Landeros MD [facility] CPT-70457 Level 4 Est. Patient 09:45:25 CDT Tu Landeros MD [facility] CPT-62031 Level 4 Est. Patient 09:05:20 BOG WORKER Tu Landeros MD [facility] CPT-90574 Level 4 Est. Patient 14:09:06 CDT Tu Landeros MD [facility] CPT-91018 Level 3 Est. Patient 13:36:54 CDT Tu Landeros MD [facility] CPT-03029 Level 3 Est. Patient 08:59:14 CDT Tu Landeros MD [facility] CPT-42333 Level 3 Est. Patient 13:48:35 CDT Fab Morales DO [facility] CPT-83672 Level 4 Est. Patient 10:05:48 CDT Tu Landeros MD [facility] CPT-14238 Level 3 Est. Patient 13:38:42 CDT Marek BANKS [facility] CPT-81452 Level 5 Est. Patient 08:08:39 CDT Jerrica FRANCIS [facility] CPT-26342 Level 4 Est. Patient 14:23:38 CDT Tu Landeros MD [facility] CPT-76652 Level 3 Est. Patient 11:44:04 CDT Tu Landeros MD [facility] CPT-46356 Level 3 Est. Patient 11:03:20 BOG WORKER uT Landeros MD [facility] CPT-91716 Level 3 Est. Patient 11:03:14 BOG WORKER Tu Landeros MD [facility] CPT-27348 Level 3 Est. Patient 12:42:49 CDT Tu Landeros MD [facility] CPT-05575 Level 3 Est. Patient 11:52:06 CDT Tu Landeros MD [facility] CPT-52394 Level 3 Est. Patient 13:58:11 CDT Tu Landeros MD [facility] CPT-22521 Level 3 Est. Patient 17:50:07 CDT Fab Morales DO [facility] CPT-26433 Level 3 Est. Patient 12:06:29 CDT Elvira Cervantes MD PhD [facility] CPT-71313 Level 3 Est. Patient 15:50:32 CDT Tu Landeros MD [facility] CPT-30124 Level 4 Est. Patient 16:08:29 CDT Tu Landeros MD [facility] CPT-26104 Level 3 Est. Patient 16:04:19 CDT Tu Landeros MD [facility] CPT-12724 Level 3 Est. Patient 11:22:30 BOG WORKER Tu Landeros MD [facility] CPT-30166 Level 4 Est. Patient 16:24:02 BOG WORKER Tu Landeros MD [facility] CPT-31220 Level 3 Est. Patient 17:21:23 BOG WORKER Tu Landeros MD [facility] Procedures Code Procedure Name Date Entry Date Standard Description CPT-33113 Magnesium - LAB USE ONLY 11:14:20 BOG WORKER CPT-63951 Lipid - LAB USE ONLY 11:14:20 BOG WORKER CPT-15441 HGBA1C - LAB USE ONLY 11:14:20 BOG WORKER CPT-71351 CMP - LAB USE ONLY 11:14:19 BOG WORKER CPT-99340 CBC - LAB USE ONLY 11:14:19 BOG WORKER CPT-79479 Venipuncture Draw Fee 11:14:18 BOG WORKER CPT-29823 First Vx - Ix admin for Medicare patients 16:46:52 CDT CPT-02867 Fluzone Preservative Free Intramuscular Suspension 16:46 :51 CDT CPT-88094 CBC - LAB USE ONLY 17:14:46 CDT CPT-91679 HGBA1C - LAB USE ONLY 17:14:46 CDT CPT-69399 Venipuncture Draw Fee 17:14:46 CDT CPT-G0438 Initial Annual Wellness Exam 14:13:04 CDT CPT-97939 Breathing Tx 10:06:54 BOG WORKER CPT-02602 Postop F/U Visit 10:02:45 CDT CPT-LR Lesion Removal 09:02:56 CDT CPT-JTINJ Asp/Joint Injection 15:51:27 BOG WORKER CPT-OV Office Visit 15:52:02 BOG WORKER CPT-OV Office Visit 15:45:11 CDT CPT-000 Give Zostavax 14:09:06 CDT CPT-55968 Administration single or combination vaccine inc oral 15 :19:04 CDT CPT-85743 Zoster Vaccine (Zostavax) 15:19:04 CDT CPT-26667 Administration single or combination vaccine inc oral 20 :51:03 CDT CPT-54499 Influenza split virus > age 3 20:51:03 CDT CPT-46754 No Charge Offi Visit 14:52:03 CDT CPT-OV Office Visit 14:57:43 CDT CPT-OV Office Visit 15:22:32 CDT CPT-91835 Administration single or combination vaccine inc oral 11 :33:15 CDT CPT-10132 Influenza split virus > age 3 11:33:15 CDT
--- OUTSIDE RECORDS SUMMARY | 2018-04-25 13:20 | XMS REPORT | Clinical Summary ---
Author Author Admin, SACHI Organization [employer] Address Unknown Phone Unavailable Allergies, Adverse Reactions, [...] Comment Standard Description Annotate Depression 311 Active uT Landeros MD Depressive disorder, not elsewhere classified [...] ORAL TABS 1 po BID VENLAFAXINE HCL 28970866281 Active Tu Landeros MD Active GLIMEPIRIDE 1 MG ORAL TABS 1 po qd GLIMEPIRIDE 20563915067 Active Tu Landeros MD Active TRUE METRIX BLOOD GLUCOSE TEST INVITR STRP Test blood sugar BID Dx: E11.9 GLUCOSE BLOOD 56324198996 Delores Landeros MD Active TRUE METRIX AIR GLUCOSE METER W/DEVICE KIT Test blood glucose BID Dx: E11.9 BLOOD GLUCOSE MONITORING SUPPL 52353924626 Active Tu Landeros MD Active TRUETEST TEST INVITR STRP test blood sugar twice daily. DX 250.0 GLUCOSE BLOOD 63890547071 No Longer Active Mirna Stanley LPN Active TRUEDRAW LANCING DEVICE MISC test blood sugar twice daily dx: 250.00 LANCET DEVICES 16357352768 No Longer Active Mirna Stanley LPN Active ENALAPRIL MALEATE 20 MG TABS 2 po qd ENALAPRIL MALEATE 28136263347 Active Tu Landeros MD Active SUPER B COMPLEX/VITAMIN C TABS 1 qd B COMPLEX-C 77349718213 No Longer Active Tu Landeros MD Active ASPIRIN EC 81 MG ORAL TBEC 1 po qd ASPIRIN 45698690561 Active Tu Landeros MD Active GLUCOSAMINE 500 MG TABS 2 po qd GLUCOSAMINE Active Tu Landeros MD Active SIMVASTATIN 40 MG TABS 0.5 po qHS SIMVASTATIN 39550573320 Active Tu Landeros MD Active FISH OIL 1000 MG CAPS 1 po qd OMEGA-3 FATTY ACIDS 29336264430 Active Tu Landeros MD Active METFORMIN HCL 1000 MG TABS 1 po BID METFORMIN HCL 00594145472 Active Tu Landeros MD Active KLOR-CON 10 10 MEQ CR-TABS 2 po qd POTASSIUM CHLORIDE 42748694139 Active Tu Landeros MD Active FUROSEMIDE 40 MG TAB 1 po qd FUROSEMIDE 81122326393 Active Tu Landeros MD Active REQUIP 2 MG ORAL TABS 1 po qHS PRN Restless legs ROPINIROLE HCL 39199110249 Active Tu Landeros MD Active GABAPENTIN 100 MG CAPS 1 po BID GABAPENTIN 85062415332 Active Tu Landeros MD Active REQUIP 2 MG TABS Take one tablet at bedtime prn ROPINIROLE HCL 95838729710 No Longer Active Tu Landeros MD Active VENTOLIN HFA 108 (90 BASE) MCG/ACT AERS 1-2 puffs every 4 hours if needed for cough/congestion ALBUTEROL SULFATE 16231418774 No Longer Active Ambika Aden APRN Active ZITHROMAX 250 MG TAB 2 po today, then 1 po q days 2-5 AZITHROMYCIN 05184516983 No Longer Active Miranda Suresh APRN Active FLONASE 50 MCG/ACT SUSP 1 spray each nostril twice daily until bottle empty FLUTICASONE PROPIONATE 27411380302 No Longer Active Tu Landeros MD Active COLACE 100 MG CAP 1 po BID PRN Constipation DOCUSATE SODIUM 78116119231 Active Tu Landeros MD Active TRUERESULT BLOOD GLUCOSE W/DEVICE KIT test blood sugar twice daily dx 250.00 BLOOD GLUCOSE MONITORING SUPPL 17176467639 No Longer Active Tu Landeros MD Active TRUEDRAW LANCING DEVICE MISC Test twice a day dx 250.0 LANCET DEVICES 85633388357 No Longer Active Tu Landeros MD Active PREDNISONE 20 MG TAB 2 tablets once daily for 2 days, then 1 tablet once daily for 2 days PREDNISONE 75875270088 No Longer Active Tu Landeros MD Active DICLOFENAC SODIUM 50 MG TBEC 1 tablet by mouth three times a day as needed DICLOFENAC SODIUM 66321735726 No Longer Active Fab Morales DO Active EMBRACE BLOOD GLUCOSE TEST STRP test blood sugar twice daily DX 250.0 2014 GLUCOSE BLOOD 16093247386 No Longer Active Tu Landeros MD Active TRUETEST TEST STRP test blood sugar three times daily dx: 250.00 GLUCOSE BLOOD 12150363630 No Longer Active Suze Corey VOGEL Active TRUERESULT BLOOD GLUCOSE W/DEVICE KIT use to test blood sugar tid dx: 250.00 BLOOD GLUCOSE MONITORING SUPPL 83512892661 No Longer Active Suze Corey RMA Active ALIGN 4 MG CAPS 1 tid PROBIOTIC PRODUCT 80322937951 No Longer Active Shaun Sy MD Active CIPRO 500 MG TABS 1 bid x 14 days start 09-28-13 CIPROFLOXACIN HCL 73055805254 No Longer Active Shaun Sy MD Active TRAMADOL HCL 50 MG TABS 1-2 tablets every 6 hours as needed for pain TRAMADOL HCL 55728502754 Active Lesli Kellogg APRN Active HYDROCODONE-ACETAMINOPHEN 5-325 MG TABS 1 tab by mouth every 6 hours as needed for pain HYDROCODONE-ACETAMINOPHEN 78130613837 No Longer Active Tu Landeros MD Active OMEPRAZOLE 20 MG CPDR 1 po q a.m. OMEPRAZOLE 32568837662 Active Lesli Kellogg APRN Active GABAPENTIN 100 MG CAPS 1 po bid GABAPENTIN 13874644657 No Longer Active Tu Landeros MD Active B-12 100 MCG TABS Take one by mouth daily CYANOCOBALAMIN 39760784408 No Longer Active Tu Landeros MD Active BACTRIM DS 800-160 MG TABS 1 bid x 14 day start 09-28-13 SULFAMETHOXAZOLE-TRIMETHOPRIM 24647536819 No Longer Active Tu Landeros MD Active CARVEDILOL 12.5 MG TABS 1 po BID CARVEDILOL 37092490524 Active Tu Landeros MD Active TRILIPIX 135 MG CPDR 1 q hs CHOLINE FENOFIBRATE 03521716534 Active Tu Landeros MD Active FENOFIBRATE 145 MG TABS 1 po qd FENOFIBRATE 12135426906 No Longer Active JASPREET Perez Active OMEPRAZOLE 20 MG TBEC 1 PO 30 MIN BEFORE 1ST MEAL OMEPRAZOLE 71062113961 No Longer Active JASPREET Perez Active SIMVASTATIN 40 MG TABS Take one by mouth daily SIMVASTATIN 63883066373 No Longer Active JASPREET Perez Active VENLAFAXINE HCL 75 MG TABS 1 po BID VENLAFAXINE HCL 85848835584 No Longer Active [place] Norma, RMA Active CIPRO 500 MG TAB 1 tablet by mouth twice daily CIPROFLOXACIN HCL 48983946103 No Longer Active Tu Landeros MD Active VENLAFAXINE HCL 37.5 MG TABS 1 po BID VENLAFAXINE HCL 93219511105 No Longer Active Suze Nicole RMA Active LAMISIL 250 MG TAB 1 po qd TERBINAFINE HCL 12259123986 No Longer Active uT Landeros MD Active LORTAB 5 5-500 MG TABS 1/2 to 1 tablet by mouth every 4 hours as needed for pain HYDROCODONE-ACETAMINOPHEN 15988673078 No Longer Active Tu Landeros MD Active HYDROCODONE-ACETAMINOPHEN 5-500 MG TABS take one po Q 4-6 hours prn HYDROCODONE-ACETAMINOPHEN 72464407231 No Longer Active Tu Landeros MD Active BACTRIM DS 800-160 MG TABS 1 po BID x 7 days SULFAMETHOXAZOLE-TRIMETHOPRIM 11523955530 No Longer Active Tu Landeros MD Active VENLAFAXINE HCL 75 MG TABS 1 po BID VENLAFAXINE HCL 47307901405 No Longer Active Elvira Cervantes MD PhD Active TRAMADOL HCL 50 MG TABS 1 tablets every 6 hours as needed for pain TRAMADOL HCL 71511996311 No Longer Active Tu Landeros MD Active ACCU-CHEK FASTCLIX LANCETS MISC Use to check bloodsugar three times daily as needed LANCETS 33368573278 No Longer Active Tu Landeros MD Active ACCU-CHEK KEYONA PLUS STRP Use for testing bloodsugars three times daily as needed GLUCOSE BLOOD 35552508236 No Longer Active Tu Landeros MD Active ACCU-CHEK KEYONA PLUS W/DEVICE KIT Use for testing bloodsugars three times daily as needed BLOOD GLUCOSE MONITORING SUPPL 23657052890 No Longer Active Tu Landeros MD Active SPIRONOLACTONE 25 MG TAB 0.5 tablet by mouth daily SPIRONOLACTONE 06060568855 No Longer Active Tu Landeros MD Active ALPRAZOLAM 0.5 MG TABS 1 tab every 6hrs as needed ALPRAZOLAM 40168343202 No Longer Active Tu Landeros MD Active AUGMENTIN 875-125 MG TAB 1 tab by mouth twice daily with food AMOXICILLIN-POT CLAVULANATE 70909374467 No Longer Active Tu Landeros MD Active PREDNISONE 20 MG TAB 2 tabs daily for 3 days, 1 tab daily for 3 days, 1/2 tab daily for 2 days PREDNISONE 66480647350 No Longer Active Tu Landeros MD Active XANAX 0.5 MG TABS 1 tablet every 6 hrs prn ALPRAZOLAM 47610584550 No Longer Active Tu Landeros MD Active PREDNISONE 20 MG TAB 2 tabs daily for 3 days, 1 tab daily for 3 days, 1/2 tab daily for 2 days PREDNISONE 95427823846 No Longer Active Tu Landeros MD Active TRIAMCINOLONE ACETONIDE 0.1 % OINT Apply to affected areas TID for up to 2 weeks TRIAMCINOLONE ACETONIDE 50138171393 No Longer Active Tu Landeros MD Active LORTAB 5 5-500 MG TABS 1/2 to 1 tablet by mouth every 4 hours as needed for pain HYDROCODONE-ACETAMINOPHEN 92415716913 No Longer Active Tu Landeros MD Active MULTIVITAMINS TABS Take one by mouth daily MULTIPLE VITAMIN 01227198483 No Longer Active Tu Landeros MD Active MELATONIN 5 MG TABS Take one by mouth daily MELATONIN 09409633548 No Longer Active Tu Landeros MD Active SOMA 350 MG TAB 1 po q 6 hours prn spasm CARISOPRODOL 17370154192 No Longer Active Tu Landeros MD Active MECLIZINE HCL 25 MG CHEW TAB 1 four times a day as needed for dizziness 08/05 MECLIZINE HCL 47131062683 No Longer Active Fab Morales DO Active ANGEL NIKKOEZAdrianna 2 TEST DISK test tid prn GLUCOSE BLOOD 25293345396 No Longer Active Negra Tyler MICHAEL Active REGLAN 10 MG TAB 1 po TID PRN Nausea METOCLOPRAMIDE HCL 30509490864 No Longer Active Tu Landeros MD Active METFORMIN HCL 500 MG TABS 1 PO BID METFORMIN HCL 08066653208 No Longer Active Tu Landeros MD Active AMBIEN 10 MG TAB 1 tab by mouth at bedtime as needed for sleep ZOLPIDEM TARTRATE 50324060447 No Longer Active Tu Landeros MD Active FLUOXETINE HCL 40 MG CAPS 1 po q day FLUOXETINE HCL 58202423706 No Longer Active Mayra Louviers Active TRILIPIX 135 MG CPDR 1 po qd CHOLINE FENOFIBRATE 11779285457 No Longer Active Tu Landeros MD Active AMBIEN 10 MG TAB 1 tab by mouth at bedtime as needed for sleep AMBIEN 10 MG TAB 774194 ZOLPIDEM TARTRATE Inactive METFORMIN HCL 500 MG TABS 1 PO BID METFORMIN HCL 500 MG TABS 373718 METFORMIN HCL Inactive REGLAN 10 MG TAB 1 po TID PRN Nausea REGLAN 10 MG TAB 335824 METOCLOPRAMIDE HCL Inactive MECLIZINE HCL 25 MG CHEW TAB 1 four times a day as needed for dizziness 08/05 MECLIZINE HCL 25 MG CHEW TAB 211771 MECLIZINE HCL Inactive SOMA 350 MG TAB 1 po q 6 hours prn spasm SOMA 350 MG TAB 165815 CARISOPRODOL Inactive MELATONIN 5 MG TABS Take one by mouth daily MELATONIN 5 MG TABS 827166 MELATONIN Inactive MULTIVITAMINS TABS Take one by mouth daily MULTIVITAMINS TABS MULTIPLE VITAMIN Inactive LORTAB 5 5-500 MG TABS 1/2 to 1 tablet by mouth every 4 hours as needed for pain LORTAB 5 5-500 MG TABS HYDROCODONE- ACETAMINOPHEN Inactive XANAX 0.5 MG TABS 1 tablet every 6 hrs prn XANAX 0.5 MG TABS 729188 ALPRAZOLAM Inactive AUGMENTIN 875-125 MG TAB 1 tab by mouth twice daily with food AUGMENTIN 875-125 MG TAB 081406 AMOXICILLIN-POT CLAVULANATE Inactive ALPRAZOLAM 0.5 MG TABS 1 tab every 6hrs as needed ALPRAZOLAM 0.5 MG TABS 549937 ALPRAZOLAM Inactive SPIRONOLACTONE 25 MG TAB 0.5 tablet by mouth daily SPIRONOLACTONE 25 MG TAB 805005 SPIRONOLACTONE Inactive ACCU-CHEK KEYONA PLUS W/DEVICE KIT Use for testing bloodsugars three times daily as needed ACCU-CHEK KEYONA PLUS W/DEVICE KIT BLOOD GLUCOSE MONITORING SUPPL Inactive ACCU-CHEK KEYONA PLUS STRP Use for testing bloodsugars three times daily as needed ACCU-CHEK KEYONA PLUS STRP GLUCOSE BLOOD Inactive ACCU-CHEK FASTCLIX LANCETS MISC Use to check bloodsugar three times daily as needed ACCU-CHEK FASTCLIX LANCETS MISC 31862424165 LANCETS Inactive TRAMADOL HCL 50 MG TABS 1 tablets every 6 hours as needed for pain TRAMADOL HCL 50 MG TABS 735055 TRAMADOL HCL Inactive VENLAFAXINE HCL 75 MG TABS 1 po BID VENLAFAXINE HCL 75 MG TABS 859803 VENLAFAXINE HCL Inactive HYDROCODONE-ACETAMINOPHEN 5-500 MG TABS take one po Q 4-6 hours prn HYDROCODONE-ACETAMINOPHEN 5-500 MG TABS HYDROCODONE- ACETAMINOPHEN Inactive LORTAB 5 5-500 MG TABS 1/2 to 1 tablet by mouth every 4 hours as needed for pain LORTAB 5 5-500 MG TABS HYDROCODONE- ACETAMINOPHEN Inactive LAMISIL 250 MG TAB 1 po qd LAMISIL 250 MG TAB 511044 TERBINAFINE HCL Inactive VENLAFAXINE HCL 37.5 MG TABS 1 po BID VENLAFAXINE HCL 37.5 MG TABS 747088 VENLAFAXINE HCL Inactive CIPRO 500 MG TAB 1 tablet by mouth twice daily CIPRO 500 MG TAB 246343 CIPROFLOXACIN HCL Inactive VENLAFAXINE HCL 75 MG TABS 1 po BID VENLAFAXINE HCL 75 MG TABS 839450 VENLAFAXINE HCL Inactive SIMVASTATIN 40 MG TABS Take one by mouth daily SIMVASTATIN 40 MG TABS 977050 SIMVASTATIN Inactive OMEPRAZOLE 20 MG TBEC 1 PO 30 MIN BEFORE 1ST MEAL OMEPRAZOLE 20 MG TBEC 928532 OMEPRAZOLE Inactive FENOFIBRATE 145 MG TABS 1 po qd FENOFIBRATE 145 MG TABS 111737 FENOFIBRATE Inactive BACTRIM DS 800-160 MG TABS 1 bid x 14 day start 09-28-13 BACTRIM DS 800-160 MG TABS 290069 SULFAMETHOXAZOLE-TRIMETHOPRIM Inactive B-12 100 MCG TABS Take one by mouth daily B-12 100 MCG TABS CYANOCOBALAMIN Inactive GABAPENTIN 100 MG CAPS 1 po bid GABAPENTIN 100 MG CAPS 573064 GABAPENTIN Inactive HYDROCODONE-ACETAMINOPHEN 5-325 MG TABS 1 tab by mouth every 6 hours as needed for pain HYDROCODONE-ACETAMINOPHEN 5-325 MG TABS 118259 HYDROCODONE-ACETAMINOPHEN Inactive CIPRO 500 MG TABS 1 bid x 14 days start 09-28-13 CIPRO 500 MG TABS 448327 CIPROFLOXACIN HCL Inactive ALIGN 4 MG CAPS [...] as needed DICLOFENAC SODIUM 50 MG TBEC 771065 DICLOFENAC SODIUM Inactive PREDNISONE 20 MG TAB 2 tablets once daily for 2 days, then 1 tablet once daily for 2 days PREDNISONE 20 MG TAB 890896 PREDNISONE Inactive TRUEDRAW LANCING DEVICE MISC Test twice a day dx 250.0 TRUEDRAW LANCING DEVICE MISC LANCET DEVICES Inactive TRUERESULT BLOOD GLUCOSE W/DEVICE KIT test blood sugar twice daily dx 250.00 TRUERESULT BLOOD GLUCOSE W/DEVICE KIT BLOOD GLUCOSE MONITORING SUPPL Inactive FLONASE 50 MCG/ACT SUSP 1 spray each nostril twice daily until bottle empty FLONASE 50 MCG/ACT SUSP 2018981 FLUTICASONE PROPIONATE Inactive VENTOLIN HFA 108 (90 BASE) MCG/ACT AERS 1-2 puffs every 4 hours if needed for cough/congestion VENTOLIN HFA 108 (90 BASE) MCG/ACT AERS ALBUTEROL SULFATE Inactive REQUIP 2 MG TABS Take one tablet at bedtime prn REQUIP 2 MG TABS 000790 ROPINIROLE HCL Inactive SUPER B COMPLEX/VITAMIN C TABS 1 qd SUPER B COMPLEX/ VITAMIN C TABS 58292242873 B COMPLEX-C Inactive TRUEDRAW LANCING DEVICE MISC test blood sugar twice daily dx: 250.00 TRUEDRAW LANCING DEVICE MISC LANCET DEVICES Inactive TRUETEST TEST INVITR STRP test blood sugar twice daily. DX 250.0 TRUETEST TEST INVITR STRP GLUCOSE BLOOD Inactive TRIAMCINOLONE ACETONIDE 0.1 % OINT Apply to affected areas TID for up to 2 weeks TRIAMCINOLONE ACETONIDE 0.1 % OINT 8928216 TRIAMCINOLONE ACETONIDE Inactive PREDNISONE 20 MG TAB 2 tabs daily for 3 days, 1 tab daily for 3 days, 1/2 tab daily for 2 days PREDNISONE 20 MG TAB 234910 PREDNISONE Inactive PREDNISONE 20 MG TAB 2 tabs daily for 3 days, 1 tab daily for 3 days, 1/2 tab daily for 2 days PREDNISONE 20 MG TAB 054089 PREDNISONE Inactive BACTRIM DS 800-160 MG TABS 1 po BID x 7 days BACTRIM DS 800-160 MG TABS 306713 SULFAMETHOXAZOLE-TRIMETHOPRIM Inactive ZITHROMAX 250 MG TAB 2 po today, then 1 po q days 2-5 ZITHROMAX 250 MG TAB 0770191 AZITHROMYCIN Inactive Advance Directives Directive Description Start Date DISCUSSED WITH PATIENT -- NO DECISION MADE Immunizations Vaccine Administration Date Value Standard Description Seasonal influenza vaccine, injectable, containing preservative, for > 3 years old (Afluria, FluLaval, Fluzone, Fluvirin, Fluarix, Agriflu(>=18 yo)) Fluzone (>3 yrs.) [[id number]] Influenza, seasonal, injectable influenza immunization (Flu Vax) has been administered 02/22/2012 influenza virus vaccine, unspecified formulation Seasonal influenza vaccine, injectable, containing preservative, for > 3 years old (Afluria, FluLaval, Fluzone, Fluvirin, Fluarix, Agriflu(>=18 yo)) Fluzone (>3 yrs.) [[id number]] Influenza, seasonal, injectable Vital Signs Date Name [...] pressure, diastolic - 8462-4 67 mm[Hg] BP ca blood pressure, systolic - 8480-6 177 mm[Hg] [...] Magnesium - Chemistry sodium, serum 143 mmol/L 509-247 4701/01/10 carbon dioxide, venous blood 28.0 mmol/L 21.0-32.0 potassium, serum 4.5 mmol/L 3.5-5.2 chloride, serum 104 mmol/L 98-107 blood glucose 158 mg/dL 65-110 urea nitrogen, blood 23 mg/dL 7-18 creatinine, serum 1.06 mg/dL 0.55-1.30 alanine aminotransferase (SGPT), serum 42 U/L 12-78 aspartate aminotransferase (SGOT), serum 32 U/L 15-37 calcium, serum 9.3 mg/dL 8.5-10.1 bilirubin, serum, total 0.20 mg/dL 0.00-1.00 cholesterol, serum 177 mg/dL 144-935 2497/01/10 triglyceride, serum, fasting 320 mg/dL 30-200 HDL cholesterol, serum 46 mg/dL 32-96 LDL cholesterol, serum 67 mg/dL 0-130 Lab Report: COMPREHENSIVE METABOLIC PANEL, LIPID PANEL, HEMOGLOBIN A1c - Chemistry cholesterol, serum 135 mg/dL 568-847 8949/05/17 HDL cholesterol, serum 41 mg/dL > OR=46 triglyceride, serum, fasting 206 mg/dL <150 LDL cholesterol, serum 53 MG/DL (CALC) mg/dL <130 cholesterol/HDL ratio, serum 3.3 (calc) < OR=5.0 Lab Report: HGBA1C - Chemistry hemoglobin A1C, blood, as % of total hemoglobin 7.4 % 4.3-6.0 sodium, serum 140 mmol/L 161-668 5820/09/07 potassium, serum 4.3 mmol/L 3.5-5.2 chloride, serum [...] <30 Encounters Code Encounter Date Provider Facility CPT-66185 Level 4 Est. Patient 14:29:21 CDT Tu Landeros MD [facility] CPT-56645 Level 4 Est. Patient 09:08:17 SILVER DESIGNER Tu Landeros MD [facility] CPT-75654 Level 4 Est. Patient 14:40:19 CDT Tu Landeros MD [facility] CPT-23334 Level 4 Est. Patient 14:06:04 SILVER DESIGNER Tu Landeros MD [facility] CPT-06717 Level 3 Est. Patient 14:05:18 SILVER DESIGNER Tu Landeros MD [facility] CPT-18930 Level 3 Est. Patient 10:06:54 SILVER DESIGNER Mirandawinston Suresh APRN [facility] CPT-21346 Level 4 Est. Patient 13:50:18 SILVER DESIGNER Tu Landeros MD [facility] CPT-65981 Level 3 Est. Patient 10:30:04 CDT Tu Lanedros MD [facility] CPT-16344 Level 4 Est. Patient 11:03:38 CDT Tu Landeros MD [facility] CPT-05888 Level 3 Est. Patient 10:20:44 CDT Fab Morales DO [facility] CPT-59681 Level 4 Est. Patient 14:38:57 CDT Tu Landeros MD [facility] CPT-93817 Level 4 Est. Patient 14:27:39 SILVER DESIGNER Tu Landeros MD [facility] CPT-24207 Level 4 Est. Patient 09:45:25 CDT Tu Landeros MD [facility] CPT-29739 Level 4 Est. Patient 09:05:20 SILVER DESIGNER Tu Landeros MD [facility] CPT-30272 Level 4 Est. Patient 14:09:06 CDT Tu Landeros MD [facility] CPT-38805 Level 3 Est. Patient 13:36:54 CDT Tu Landeros MD [facility] CPT-86470 Level 3 Est. Patient 08:59:14 CDT Tu Landeros MD [facility] CPT-15060 Level 3 Est. Patient 13:48:35 CDT Fab Morales DO [facility] CPT-01149 Level 4 Est. Patient 10:05:48 CDT Tu Landeros MD [facility] CPT-39456 Level 3 Est. Patient 13:38:42 CDT Marek BANKS [facility] CPT-73702 Level 5 Est. Patient 08:08:39 CDT Piyushrichajanelle Dawsontay FRANCIS [facility] CPT-03065 Level 4 Est. Patient 14:23:38 CDT Tu Landeros MD [facility] CPT-15129 Level 3 Est. Patient 11:44:04 CDT Tu Landeros MD [facility] CPT-48218 Level 3 Est. Patient 11:03:20 SILVER DESIGNER Tu Landeros MD [facility] CPT-67063 Level 3 Est. Patient 11:03:14 SILVER DESIGNER Tu Landeros MD [facility] CPT-87823 Level 3 Est. Patient 12:42:49 CDT Tu Landeros MD [facility] CPT-25630 Level 3 Est. Patient 11:52:06 CDT Tu Landeros MD [facility] CPT-75478 Level 3 Est. Patient 13:58:11 CDT Tu Landeros MD [facility] CPT-03731 Level 3 Est. Patient 17:50:07 CDT Fab Morales DO [facility] CPT-17252 Level 3 Est. Patient 12:06:29 CDT Elvira Cervantes MD PhD [facility] CPT-69092 Level 3 Est. Patient 15:50:32 CDT Tu Landeros MD [facility] CPT-05855 Level 4 Est. Patient 16:08:29 CDT Tu Landeros MD [facility] CPT-25712 Level 3 Est. Patient 16:04:19 CDT Tu Landeros MD [facility] CPT-53403 Level 3 Est. Patient 11:22:30 SILVER DESIGNER Tu Landeros MD [facility] CPT-47888 Level 4 Est. Patient 16:24:02 SILVER DESIGNER Tu Landeros MD [facility] CPT-95668 Level 3 Est. Patient 17:21:23 SILVER DESIGNER Tu Landeros MD [facility] Procedures Code Procedure Name Date Entry Date Standard Description CPT-G0009 Administration of Pneumococcal Vaccine 15:08:26 CDT CPT-71432 Prevnar 13 Intramuscular Suspension 15:08:26 CDT 10/08 CPT-G0439 [facility] Annual Wellness Exam 14:29:22 CDT CPT-99567 Venipuncture Draw Fee 13:15:35 CDT CPT-33054 Magnesium - LAB USE ONLY 11:14:20 SILVER DESIGNER CPT-74924 Lipid - LAB USE ONLY 11:14:20 SILVER DESIGNER CPT-46507 HGBA1C - LAB USE ONLY 11:14:20 SILVER DESIGNER CPT-77302 CMP - LAB USE ONLY 11:14:19 SILVER DESIGNER CPT-55515 CBC - LAB USE ONLY 11:14:19 SILVER DESIGNER CPT-03004 Venipuncture Draw Fee 11:14:18 SILVER DESIGNER CPT-53136 First Vx - Ix admin for Medicare patients 16:46:52 CDT CPT-69849 Fluzone Preservative Free Intramuscular Suspension 16:46 :51 CDT CPT-01229 CBC - LAB USE ONLY 17:14:46 CDT CPT-41185 HGBA1C - LAB USE ONLY 17:14:46 CDT CPT-90359 Venipuncture Draw Fee 17:14:46 CDT CPT-G0438 Initial Annual Wellness Exam 14:13:04 CDT CPT-73778 Breathing Tx 10:06:54 SILVER DESIGNER CPT-76161 Postop F/U Visit 10:02:45 CDT CPT-LR Lesion Removal 09:02:56 CDT CPT-JTINJ Asp/Joint Injection 15:51:27 SILVER DESIGNER CPT-OV Office Visit 15:52:02 SILVER DESIGNER CPT-OV Office Visit 15:45:11 CDT CPT-000 Give Zostavax 14:09:06 CDT CPT-22988 Administration single or combination vaccine inc oral 15 :19:04 CDT CPT-13992 Zoster Vaccine (Zostavax) 15:19:04 CDT CPT-09080 Administration single or combination vaccine inc oral 20 :51:03 CDT CPT-09105 Influenza split virus > age 3 20:51:03 CDT CPT-94077 No Charge Offi Visit 14:52:03 CDT CPT-OV Office Visit 14:57:43 CDT CPT-OV Office Visit 15:22:32 CDT CPT-31133 Administration single or combination vaccine inc oral 11 :33:15 CDT CPT-61781 Influenza split virus > age 3 11:33:15 CDT
--- OUTSIDE RECORDS SUMMARY | 2018-04-25 13:21 | XMS REPORT | Clinical Summary ---
Author Author Admin, SACHI Organization [employer] Address Unknown Phone Unavailable Allergies, Adverse Reactions, [...] MG TABS 1 po BID VENLAFAXINE HCL 78461582144 Active Tu Landeros MD Active GABAPENTIN 100 MG CAPS 1 po BID GABAPENTIN 55649665221 Active Tu Landeros MD Active REQUIP 2 MG TABS Take one tablet at bedtime prn ROPINIROLE HCL 41447554555 No Longer Active Tu Landeros MD Active VENTOLIN HFA 108 (90 BASE) MCG/ACT AERS 1-2 puffs every 4 hours if needed for cough/congestion ALBUTEROL SULFATE 59860119850 No Longer Active Ambika Aden APRN Active ZITHROMAX 250 MG TAB 2 po today, then 1 po q days 2-5 AZITHROMYCIN 38658408519 No Longer Active Miranda Suresh APRN Active METFORMIN HCL 1000 MG TABS 1 tablet by mouth twice daily METFORMIN HCL 29232167522 Active Tu Landeros MD Active FLONASE 50 MCG/ACT SUSP 1 spray each nostril twice daily until bottle empty FLUTICASONE PROPIONATE 50151668724 No Longer Active Tu Landeros MD Active COLACE 100 MG CAP 1 po BID PRN Constipation DOCUSATE SODIUM 07178135361 Active Tu Landeros MD Active SIMVASTATIN 40 MG TABS 0.5 tab daily at bedtime SIMVASTATIN 81256593646 Active Tu Landeros MD Active TRUERESULT BLOOD GLUCOSE W/DEVICE KIT test blood sugar twice daily dx 250.00 BLOOD GLUCOSE MONITORING SUPPL 37406245123 No Longer Active Tu Landeros MD Active TRUEDRAW LANCING DEVICE MISC Test twice a day dx 250.0 LANCET DEVICES 96686769020 No Longer Active Tu Landeros MD Active PREDNISONE 20 MG TAB 2 tablets once daily for 2 days, then 1 tablet once daily for 2 days PREDNISONE 12904251525 No Longer Active Tu Landeros MD Active DICLOFENAC SODIUM 50 MG TBEC 1 tablet by mouth three times a day as needed DICLOFENAC SODIUM 82549617431 No Longer Active Fab Morales DO Active TRUEDRAW LANCING DEVICE MISC test blood sugar twice daily dx: 250.00 LANCET DEVICES 86997419674 Active Tu Landeros MD Active TRUETEST TEST INVITR STRP test blood sugar twice daily. DX 250.0 GLUCOSE BLOOD 90198995531 Active Tu Landeros MD Active EMBRACE BLOOD GLUCOSE TEST STRP test blood sugar twice daily DX 250.0 2014 GLUCOSE BLOOD 71723143566 No Longer Active Tu Landeros MD Active TRUETEST TEST STRP test blood sugar three times daily dx: 250.00 GLUCOSE BLOOD 78834480559 No Longer Active Suzebianca VOGEL Active TRUERESULT BLOOD GLUCOSE W/DEVICE KIT use to test blood sugar tid dx: 250.00 BLOOD GLUCOSE MONITORING SUPPL 17439929769 No Longer Active Suze Corey RMA Active ALIGN 4 MG CAPS 1 tid PROBIOTIC PRODUCT 72282231971 No Longer Active Shaun Sy MD Active CIPRO 500 MG TABS 1 bid x 14 days start 09-28-13 CIPROFLOXACIN HCL 51443433409 No Longer Active Shaun Sy MD Active TRAMADOL HCL 50 MG TABS 1-2 tablets every 6 hours as needed for pain TRAMADOL HCL 42841346661 Active Tu Landeros MD Active HYDROCODONE-ACETAMINOPHEN 5-325 MG TABS 1 tab by mouth every 6 hours as needed for pain HYDROCODONE-ACETAMINOPHEN 97190827186 No Longer Active Tu Landeros MD Active OMEPRAZOLE 20 MG CPDR 1 po q a.m. OMEPRAZOLE 80198092634 Active Tu Landeros MD Active GABAPENTIN 100 MG CAPS 1 po bid GABAPENTIN 17620789435 No Longer Active Tu Landeros MD Active B-12 100 MCG TABS Take one by mouth daily CYANOCOBALAMIN 24639375109 No Longer Active Tu Landeros MD Active BACTRIM DS 800-160 MG TABS 1 bid x 14 day start 09-28-13 SULFAMETHOXAZOLE-TRIMETHOPRIM 13075842644 No Longer Active Tu Landeros MD Active CARVEDILOL 12.5 MG TABS 1 po BID CARVEDILOL 57572035269 Active Tu Landeros MD Active SUPER B COMPLEX/VITAMIN C TABS 1 qd B COMPLEX-C 59844523754 Active JASPREET Perez Active TRILIPIX 135 MG CPDR 1 q hs CHOLINE FENOFIBRATE 81129307852 Active Tu Landeros MD Active FENOFIBRATE 145 MG TABS 1 po qd FENOFIBRATE 55883828977 No Longer Active JASPREET Perez Active OMEPRAZOLE 20 MG TBEC 1 PO 30 MIN BEFORE 1ST MEAL OMEPRAZOLE 41617815220 No Longer Active JASPREET Perez Active SIMVASTATIN 40 MG TABS Take one by mouth daily SIMVASTATIN 45275603428 No Longer Active JASPREET Perez Active VENLAFAXINE HCL 75 MG TABS 1 po BID VENLAFAXINE HCL 49954287944 No Longer Active JASPREET Perez Active CIPRO 500 MG TAB 1 tablet by mouth twice daily CIPROFLOXACIN HCL 03300867437 No Longer Active Tu Landeros MD Active VENLAFAXINE HCL 37.5 MG TABS 1 po BID VENLAFAXINE HCL 06418536508 No Longer Active Suze Nicole RMA Active LAMISIL 250 MG TAB 1 po qd TERBINAFINE HCL 23916892833 No Longer Active Tu Landeros MD Active LORTAB 5 5-500 MG TABS 1/2 to 1 tablet by mouth every 4 hours as needed for pain HYDROCODONE-ACETAMINOPHEN 18541229109 No Longer Active Tu Landeros MD Active ENALAPRIL MALEATE 20 MG TABS 1.5 po qd ENALAPRIL MALEATE 11425071121 Active Tu Landeros MD Active HYDROCODONE-ACETAMINOPHEN 5-500 MG TABS take one po Q 4-6 hours prn HYDROCODONE-ACETAMINOPHEN 62102141732 No Longer Active Tu Landeros MD Active BACTRIM DS 800-160 MG TABS 1 po BID x 7 days SULFAMETHOXAZOLE-TRIMETHOPRIM 68124916255 No Longer Active Tu Landeros MD Active VENLAFAXINE HCL 75 MG TABS 1 po BID VENLAFAXINE HCL 09052993151 No Longer Active Elvira Cervantes MD PhD Active TRAMADOL HCL 50 MG TABS 1 tablets every 6 hours as needed for pain TRAMADOL HCL 78174293705 No Longer Active Tu Landeros MD Active ACCU-CHEK FASTCLIX LANCETS MISC Use to check bloodsugar three times daily as needed LANCETS 57733827922 No Longer Active Tu Landeros MD Active ACCU-CHEK KEYONA PLUS STRP Use for testing bloodsugars three times daily as needed GLUCOSE BLOOD 47503913592 No Longer Active Tu Landeros MD Active ACCU-CHEK KEYONA PLUS W/DEVICE KIT Use for testing bloodsugars three times daily as needed BLOOD GLUCOSE MONITORING SUPPL 31956438565 No Longer Active Tu Landeros MD Active SPIRONOLACTONE 25 MG TAB 0.5 tablet by mouth daily SPIRONOLACTONE 49342238172 No Longer Active Tu Landeros MD Active ALPRAZOLAM 0.5 MG TABS 1 tab every 6hrs as needed ALPRAZOLAM 95308176521 No Longer Active Tu Landeros MD Active AUGMENTIN 875-125 MG TAB 1 tab by mouth twice daily with food AMOXICILLIN-POT CLAVULANATE 74282854866 No Longer Active Tu Landeros MD Active PREDNISONE 20 MG TAB 2 tabs daily for 3 days, 1 tab daily for 3 days, 1/2 tab daily for 2 days PREDNISONE 42548203133 No Longer Active Tu Landeros MD Active XANAX 0.5 MG TABS 1 tablet every 6 hrs prn ALPRAZOLAM 74491720290 No Longer Active Tu Landeros MD Active PREDNISONE 20 MG TAB 2 tabs daily for 3 days, 1 tab daily for 3 days, 1/2 tab daily for 2 days PREDNISONE 17740837541 No Longer Active Tu Lnaderos MD Active TRIAMCINOLONE ACETONIDE 0.1 % OINT Apply to affected areas TID for up to 2 weeks TRIAMCINOLONE ACETONIDE 24312268993 No Longer Active Tu Landeros MD Active LORTAB 5 5-500 MG TABS 1/2 to 1 tablet by mouth every 4 hours as needed for pain HYDROCODONE-ACETAMINOPHEN 81277326738 No Longer Active Tu Landeros MD Active MULTIVITAMINS TABS Take one by mouth daily MULTIPLE VITAMIN 30882009021 No Longer Active Tu Landeros MD Active MELATONIN 5 MG TABS Take one by mouth daily MELATONIN 52455741606 No Longer Active Tu Landeros MD Active SOMA 350 MG TAB 1 po q 6 hours prn spasm CARISOPRODOL 29017492208 No Longer Active Tu Landeros MD Active MECLIZINE HCL 25 MG CHEW TAB 1 four times a day as needed for dizziness 08/05 MECLIZINE HCL 26224280767 No Longer Active Fab Morales DO Active ANGEL BREEZE 2 TEST DISK test tid prn GLUCOSE BLOOD 48481440186 No Longer Active Negra Scott RN Active REGLAN 10 MG TAB 1 po TID PRN [place] METOCLOPRAMIDE HCL 48170418026 No Longer Active Tu Landeros MD Active METFORMIN HCL 500 MG TABS 1 PO BID METFORMIN HCL 54711336748 No Longer Active Tu Landeros MD Active AMBIEN 10 MG TAB 1 tab by mouth at bedtime as needed for sleep ZOLPIDEM TARTRATE 71853737686 No Longer Active Tu Landeros MD Active FLUOXETINE HCL 40 MG CAPS 1 po q day FLUOXETINE HCL 04945924532 No Longer Active Mayra [place] Active FISH OIL 1000 MG CAPS Take one by mouth daily OMEGA-3 FATTY ACIDS 61969845710 Active Tu Landeros MD Active GLUCOSAMINE 500 MG TABS Take 2 tab po qd GLUCOSAMINE 48810198116 Active Tu Landeros MD Active TRILIPIX 135 MG CPDR 1 po qd CHOLINE FENOFIBRATE 12336089295 No Longer Active Tu Landeros MD Active ASPIRIN 81 MG CHEW TAB 1 tablet by mouth daily ASPIRIN 69844065885 Active Tu Landeros MD Active FUROSEMIDE 40 MG TAB 1 tablet by mouth daily FUROSEMIDE 42738887718 Active Tu Landeros MD Active KLOR-CON 10 10 MEQ CR-TABS TAKE 2 TABS DAILY POTASSIUM CHLORIDE 84661624655 Active Tu Landeros MD Active AMBIEN 10 MG TAB 1 tab by mouth at bedtime as needed for sleep AMBIEN 10 MG TAB 054279 ZOLPIDEM TARTRATE Inactive METFORMIN HCL 500 MG TABS 1 PO BID METFORMIN HCL 500 MG TABS 796739 METFORMIN HCL Inactive REGLAN 10 MG TAB 1 po TID PRN [place]ausea REGLAN 10 MG TAB 963851 METOCLOPRAMIDE HCL Inactive MECLIZINE HCL 25 MG CHEW TAB 1 four times a day as needed for dizziness 08/05 MECLIZINE HCL 25 MG CHEW TAB 949999 MECLIZINE HCL Inactive SOMA 350 MG TAB 1 po q 6 hours prn spasm SOMA 350 MG TAB 082523 CARISOPRODOL Inactive MELATONIN 5 MG TABS Take one by mouth daily MELATONIN 5 MG TABS 144165 MELATONIN Inactive MULTIVITAMINS TABS Take one by mouth daily MULTIVITAMINS TABS MULTIPLE VITAMIN Inactive LORTAB 5 5-500 MG TABS 1/2 to 1 tablet by mouth every 4 hours as needed for pain LORTAB 5 5-500 MG TABS HYDROCODONE- ACETAMINOPHEN Inactive XANAX 0.5 MG TABS 1 tablet every 6 hrs prn XANAX 0.5 MG TABS 464312 ALPRAZOLAM Inactive AUGMENTIN 875-125 MG TAB 1 tab by mouth twice daily with food AUGMENTIN 875-125 MG TAB 439376 AMOXICILLIN-POT CLAVULANATE Inactive ALPRAZOLAM 0.5 MG TABS 1 tab every 6hrs as needed ALPRAZOLAM 0.5 MG TABS 154121 ALPRAZOLAM Inactive SPIRONOLACTONE 25 MG TAB 0.5 tablet by mouth daily SPIRONOLACTONE 25 MG TAB 813647 SPIRONOLACTONE Inactive ACCU-CHEK KEYONA PLUS W/DEVICE KIT Use for testing bloodsugars three times daily as needed ACCU-CHEK KEYONA PLUS W/DEVICE KIT BLOOD GLUCOSE MONITORING SUPPL Inactive ACCU-CHEK KEYOAN PLUS STRP Use for testing bloodsugars three times daily as needed ACCU-CHEK KEYONA PLUS STRP GLUCOSE BLOOD Inactive ACCU-CHEK FASTCLIX LANCETS MISC Use to check bloodsugar three times daily as needed ACCU-CHEK FASTCLIX LANCETS MISC 69665305399 [facility] Inactive TRAMADOL HCL 50 MG TABS 1 tablets every 6 hours as needed for pain TRAMADOL HCL 50 MG TABS 972086 TRAMADOL HCL Inactive VENLAFAXINE HCL 75 MG TABS 1 po BID VENLAFAXINE HCL 75 MG TABS 276767 VENLAFAXINE HCL Inactive HYDROCODONE-ACETAMINOPHEN 5-500 MG TABS take one po Q 4-6 hours prn HYDROCODONE-ACETAMINOPHEN 5-500 MG TABS HYDROCODONE- ACETAMINOPHEN Inactive LORTAB 5 5-500 MG TABS 1/2 to 1 tablet by mouth every 4 hours as needed for pain LORTAB 5 5-500 MG TABS HYDROCODONE- ACETAMINOPHEN Inactive LAMISIL 250 MG TAB 1 po qd LAMISIL 250 MG TAB 773173 TERBINAFINE HCL Inactive VENLAFAXINE HCL 37.5 MG TABS 1 po BID VENLAFAXINE HCL 37.5 MG TABS 153111 VENLAFAXINE HCL Inactive CIPRO 500 MG TAB 1 tablet by mouth twice daily CIPRO 500 MG TAB 244957 CIPROFLOXACIN HCL Inactive VENLAFAXINE HCL 75 MG TABS 1 po BID VENLAFAXINE HCL 75 MG TABS 475661 VENLAFAXINE HCL Inactive SIMVASTATIN 40 MG TABS Take one by mouth daily SIMVASTATIN 40 MG TABS 967625 SIMVASTATIN Inactive OMEPRAZOLE 20 MG TBEC 1 PO 30 MIN BEFORE 1ST MEAL OMEPRAZOLE 20 MG TBEC 349559 OMEPRAZOLE Inactive FENOFIBRATE 145 MG TABS 1 po qd FENOFIBRATE 145 MG TABS 203836 FENOFIBRATE Inactive BACTRIM DS 800-160 MG TABS 1 bid x 14 day start 09-28-13 BACTRIM DS 800-160 MG TABS 195584 SULFAMETHOXAZOLE-TRIMETHOPRIM Inactive B-12 100 MCG TABS Take one by mouth daily B-12 100 MCG TABS CYANOCOBALAMIN Inactive GABAPENTIN 100 MG CAPS 1 po bid GABAPENTIN 100 MG CAPS 838804 GABAPENTIN Inactive HYDROCODONE-ACETAMINOPHEN 5-325 MG TABS 1 tab by mouth every 6 hours as needed for pain HYDROCODONE-ACETAMINOPHEN 5-325 MG TABS 885463 HYDROCODONE-ACETAMINOPHEN Inactive CIPRO 500 MG TABS 1 bid x 14 days start 814 CIPRO 500 MG TABS 802456 CIPROFLOXACIN HCL Inactive ALIGN 4 MG CAPS [...] as needed DICLOFENAC SODIUM 50 MG TBEC 100861 DICLOFENAC SODIUM Inactive PREDNISONE 20 MG TAB 2 tablets once daily for 2 days, then 1 tablet once daily for 2 days PREDNISONE 20 MG TAB 900833 PREDNISONE Inactive TRUEDRAW LANCING DEVICE MISC Test [...] at bedtime prn REQUIP 2 MG TABS 199383 ROPINIROLE HCL Inactive TRIAMCINOLONE ACETONIDE 0.1 % OINT Apply to affected areas TID for up to 2 weeks TRIAMCINOLONE ACETONIDE 0.1 % OINT 0853213 TRIAMCINOLONE ACETONIDE Inactive PREDNISONE 20 MG TAB 2 tabs daily for 3 days, 1 tab daily for 3 days, 1/2 tab daily for 2 days PREDNISONE 20 MG TAB 383267 PREDNISONE Inactive PREDNISONE 20 MG TAB 2 tabs daily for 3 days, 1 tab daily for 3 days, 1/2 tab daily for 2 days PREDNISONE 20 MG TAB 934933 PREDNISONE Inactive BACTRIM DS 800-160 MG TABS 1 po BID x 7 days BACTRIM DS 800-160 MG TABS 106397 SULFAMETHOXAZOLE-TRIMETHOPRIM Inactive ZITHROMAX 250 MG TAB 2 po today, then 1 po q days 2-5 ZITHROMAX 250 MG TAB 4220021 AZITHROMYCIN Inactive Advance Directives Directive Description Start Date DISCUSSED WITH PATIENT -- NO DECISION MADE Immunizations Vaccine Administration Date Value Standard Description Seasonal influenza vaccine, injectable, containing preservative, for > 3 years old (Afluria, FluLaval, Fluzone, Fluvirin, Fluarix, Agriflu(>=18 yo)) Fluzone (>3 yrs.) [[id number]] Influenza, seasonal, injectable influenza immunization (Flu Vax) has been administered 02/22/2012 influenza virus vaccine, unspecified formulation Seasonal influenza vaccine, injectable, containing preservative, for > 3 years old (Afluria, FluLaval, Fluzone, Fluvirin, Fluarix, Agriflu(>=18 yo)) Fluzone (>3 yrs.) [[id number]] Influenza, seasonal, injectable Vital Signs Date Name [...] 7.4 % 4.3-6.0 sodium, serum 140 mmol/L 959-136 3051/09/07 potassium, serum 4.3 mmol/L 3.5-5.2 chloride, serum 104 mmol/L 98-107 carbon dioxide, venous blood 27.7 mmol/L 21.0-32.0 blood glucose 156 mg/dL 65-110 calcium, serum 9.3 mg/dL 8.5-10.1 urea nitrogen, blood 23 mg/dL 7-18 creatinine, serum 1.21 mg/dL 0.55-1.30 Lab Report: Lipid Panel, Comp. Metabolic Panel - Chemistry cholesterol, serum 124 mg/dL 091-932 9942/01/12 triglyceride, serum, fasting 135 mg/dL 30-200 HDL cholesterol, serum 41 mg/dL 32-96 LDL cholesterol, serum 56 mg/dL 0-130 sodium, serum 140 mmol/L 308-915 4640/01/12 carbon dioxide, venous blood 27.7 mmol/L 21.0-32.0 potassium, serum 4.5 mmol/L 3.5-5.2 chloride, serum 104 mmol/L 98-107 blood glucose 139 mg/dL 65-110 urea nitrogen, blood 16 mg/dL 7-18 alanine aminotransferase (SGPT), serum 32 U/L 12-78 aspartate aminotransferase (SGOT), serum 25 U/L 15-37 calcium, serum 9.1 mg/dL 8.5-10.1 bilirubin, serum, total 0.50 mg/dL 0.00-1.00 Encounters Code Encounter Date Provider Facility CPT-30877 Level 4 Est. Patient 14:40:19 CDT Tu Landeros MD [facility] CPT-71670 Level 4 Est. Patient 14:06:04 PATIENT SUPPORT ASSOCIATE Tu Landeros MD [facility] CPT-99875 Level 3 Est. Patient 14:05:18 PATIENT SUPPORT ASSOCIATE Tu Landeros MD [facility] CPT-96415 Level 3 Est. Patient 10:06:54 PATIENT SUPPORT ASSOCIATE Miranda Suresh APRN [facility] CPT-61757 Level 4 Est. Patient 13:50:18 PATIENT SUPPORT ASSOCIATE Tu Landeros MD [facility] CPT-88423 Level 3 Est. Patient 10:30:04 CDT Tu Landeros MD [facility] CPT-40439 Level 4 Est. Patient 11:03:38 CDT Tu Landeros MD [facility] CPT-35108 Level 3 Est. Patient 10:20:44 CDT Fab Morales DO [facility] CPT-41135 Level 4 Est. Patient 14:38:57 CDT Tu Landeros MD [facility] CPT-91026 Level 4 Est. Patient 14:27:39 PATIENT SUPPORT ASSOCIATE Tu Landeros MD [facility] CPT-23106 Level 4 Est. Patient 09:45:25 CDT Tu Landeros MD [facility] CPT-10906 Level 4 Est. Patient 09:05:20 PATIENT SUPPORT ASSOCIATE Tu Landeros MD [facility] CPT-65177 Level 4 Est. Patient 14:09:06 CDT Tu Landeros MD [facility] CPT-11579 Level 3 Est. Patient 13:36:54 CDT Tu Landeros MD [facility] CPT-06760 Level 3 Est. Patient 08:59:14 CDT Tu Landeros MD [facility] CPT-45388 Level 3 Est. Patient 13:48:35 CDT Fab Morales DO [facility] CPT-81327 Level 4 Est. Patient 10:05:48 CDT Tu Landeros MD [facility] CPT-96275 Level 3 Est. Patient 13:38:42 CDT Marek BANKS [facility] CPT-23553 Level 5 Est. Patient 08:08:39 CDT Jerrica FRANCIS [facility] CPT-88440 Level 4 Est. Patient 14:23:38 CDT Tu Landeros MD [facility] CPT-66424 Level 3 Est. Patient 11:44:04 CDT Tu Landeros MD [facility] CPT-80405 Level 3 Est. Patient 11:03:20 PATIENT SUPPORT ASSOCIATE Tu Landeros MD [facility] CPT-47479 Level 3 Est. Patient 11:03:14 PATIENT SUPPORT ASSOCIATE Tu Landeros MD [facility] CPT-68458 Level 3 Est. Patient 12:42:49 CDT Tu Landeros MD [facility] CPT-81067 Level 3 Est. Patient 11:52:06 CDT Tu Landeros MD [facility] CPT-21634 Level 3 Est. Patient 13:58:11 CDT Tu Landeros MD [facility] CPT-33607 Level 3 Est. Patient 17:50:07 CDT Fab Morales DO [facility] CPT-32786 Level 3 Est. Patient 12:06:29 CDT Elvira Cervantes MD PhD [facility] CPT-96823 Level 3 Est. Patient 15:50:32 CDT Tu Landeros MD [facility] CPT-31280 Level 4 Est. Patient 16:08:29 CDT Tu Landeros MD [facility] CPT-29263 Level 3 Est. Patient 16:04:19 CDT Tu Landeros MD [facility] CPT-29342 Level 3 Est. Patient 11:22:30 PATIENT SUPPORT ASSOCIATE Tu Landeros MD [facility] CPT-19244 Level 4 Est. Patient 16:24:02 PATIENT SUPPORT ASSOCIATE Tu Landeros MD [facility] CPT-55966 Level 3 Est. Patient 17:21:23 PATIENT SUPPORT ASSOCIATE Tu Landeros MD [facility] Procedures Code Procedure Name Date Entry Date Standard Description CPT-70371 CBC - LAB USE ONLY 17:14:46 CDT CPT-57672 HGBA1C - LAB USE ONLY 17:14:46 CDT CPT-20657 Venipuncture Draw Fee 17:14:46 CDT CPT-G0438 Initial Annual Wellness Exam 14:13:04 CDT CPT-20612 Breathing Tx 10:06:54 PATIENT SUPPORT ASSOCIATE CPT-49706 Postop F/U Visit 10:02:45 CDT CPT-LR Lesion Removal 09:02:56 CDT CPT-JTINJ Asp/Joint Injection 15:51:27 PATIENT SUPPORT ASSOCIATE CPT-OV Office Visit 15:52:02 PATIENT SUPPORT ASSOCIATE CPT-OV Office Visit 15:45:11 CDT CPT-000 Give Zostavax 14:09:06 CDT CPT-99403 Administration single or combination vaccine inc oral 15 :19:04 CDT CPT-01922 Zoster Vaccine (Zostavax) 15:19:04 CDT CPT-61802 Administration single or combination vaccine inc oral 20 :51:03 CDT CPT-97589 Influenza split virus > age 3 20:51:03 CDT CPT-72641 No Charge Offi Visit 14:52:03 CDT CPT-OV Office Visit 14:57:43 CDT CPT-OV Office Visit 15:22:32 CDT CPT-39241 Administration single or combination vaccine inc oral 11 :33:15 CDT CPT-86868 Influenza split virus > age 3 11:33:15 CDT
--- OUTSIDE RECORDS SUMMARY | 2018-04-25 13:23 | XMS REPORT | Clinical Summary ---
[...] Generic Name NDC Status Provider Patient Instruction GABAPENTIN 100 MG CAPS 1 po TID GABAPENTIN 28995770538 Active Tu Landeros MD Active DICLOFENAC SODIUM 50 MG ORAL TBEC 1 po BID PRN Pain DICLOFENAC SODIUM 02534184808 No Longer Active Tu Landeros MD Active CYCLOBENZAPRINE HCL 10 MG ORAL TABS 1 po TID PRN Muscle Spasm CYCLOBENZAPRINE HCL 66400622177 No Longer Active Tu Landeros MD Active INVOKANA 100 MG ORAL TABS 1 po qd CANAGLIFLOZIN 03874275331 Active Tu Landeros MD Active GLIPIZIDE 5 MG ORAL TABS 1 po qd GLIPIZIDE 89797639803 No Longer Active Tu Landeros MD Active VENLAFAXINE HCL 75 MG ORAL TABS 1 po BID VENLAFAXINE HCL 71626890159 Active Tu Landeros MD Active GLIMEPIRIDE 1 MG ORAL TABS 1 po qd GLIMEPIRIDE 10457000614 No Longer Active Tu Landeros MD Active TRUE METRIX BLOOD GLUCOSE TEST INVITR STRP Test blood sugar BID Dx: E11.9 GLUCOSE BLOOD 28030903232 Active Tu Landeros MD Active TRUE METRIX AIR GLUCOSE METER W/DEVICE KIT Test blood glucose BID Dx: E11.9 BLOOD GLUCOSE MONITORING SUPPL 32821125674 Active Tu Landeros MD Active TRUETEST TEST INVITR STRP test blood sugar twice daily. DX 250.0 GLUCOSE BLOOD 53346507882 No Longer Active Mirna Stanley LPN Active TRUEDRAW LANCING DEVICE MISC test blood sugar twice daily dx: 250.00 LANCET DEVICES 30052389219 No Longer Active Mirna Stanley LPN Active ENALAPRIL MALEATE 20 MG TABS 2 po qd ENALAPRIL MALEATE 95725431714 Active Lesli Kellogg APRN Active SUPER B COMPLEX/VITAMIN C TABS 1 qd B COMPLEX-C 78542297635 No Longer Active Tu Landeros MD Active ASPIRIN EC 81 MG ORAL TBEC 1 po qd ASPIRIN 58211489159 Active Tu Landeros MD Active GLUCOSAMINE 500 MG TABS 2 po qd GLUCOSAMINE Active Tu Landeros MD Active SIMVASTATIN 40 MG TABS 0.5 po qHS SIMVASTATIN 68134679170 Active Tu Landeros MD Active FISH OIL 1000 MG CAPS 1 po qd OMEGA-3 FATTY ACIDS 27519851296 Active Tu Landeros MD Active METFORMIN HCL 1000 MG TABS 1 po BID METFORMIN HCL 40401278670 Active Tu Landeros MD Active KLOR-CON 10 10 MEQ CR-TABS 2 po qd POTASSIUM CHLORIDE 39866570269 Active Tu Landeros MD Active FUROSEMIDE 40 MG TAB 1 po qd FUROSEMIDE 74818119330 Active Tu Landeros MD Active REQUIP 2 MG ORAL TABS 1 po qHS PRN Restless legs ROPINIROLE HCL 86650982639 Active Tu Landeros MD Active REQUIP 2 MG TABS Take one tablet at bedtime prn ROPINIROLE HCL 66130723781 No Longer Active Tu Landeros MD Active VENTOLIN HFA 108 (90 BASE) MCG/ACT AERS 1-2 puffs every 4 hours if needed for cough/congestion ALBUTEROL SULFATE 24761262198 No Longer Active Ambika Aden APRN Active ZITHROMAX 250 MG TAB 2 po today, then 1 po q days 2-5 AZITHROMYCIN 42791059892 No Longer Active Miranda Suresh APRN Active FLONASE 50 MCG/ACT SUSP 1 spray each nostril twice daily until bottle empty FLUTICASONE PROPIONATE 50830368978 No Longer Active Tu Landeros MD Active COLACE 100 MG CAP 1 po BID PRN Constipation DOCUSATE SODIUM 27993002276 Active Tu Landeros MD Active TRUERESULT BLOOD GLUCOSE W/DEVICE KIT test blood sugar twice daily dx 250.00 BLOOD GLUCOSE MONITORING SUPPL 21897778433 No Longer Active Tu Landeros MD Active TRUEDRAW LANCING DEVICE MISC Test twice a day dx 250.0 LANCET DEVICES 57035650686 No Longer Active Tu Landeros MD Active PREDNISONE 20 MG TAB 2 tablets once daily for 2 days, then 1 tablet once daily for 2 days PREDNISONE 21064922137 No Longer Active Tu Landeros MD Active DICLOFENAC SODIUM 50 MG TBEC 1 tablet by mouth three times a day as needed DICLOFENAC SODIUM 50280409227 No Longer Active Fab Morales DO Active EMBRACE BLOOD GLUCOSE TEST STRP test blood sugar twice daily DX 250.0 2014 GLUCOSE BLOOD 93876293526 No Longer Active Tu Landeros MD Active TRUETEST TEST STRP test blood sugar three times daily dx: 250.00 GLUCOSE BLOOD 43725450979 No Longer Active Suze Corey RMA Active TRUERESULT BLOOD GLUCOSE W/DEVICE KIT use to test blood sugar tid dx: 250.00 BLOOD GLUCOSE MONITORING SUPPL 70211462629 No Longer Active Suze Corey RMA Active ALIGN 4 MG CAPS 1 tid PROBIOTIC PRODUCT 54852417827 No Longer Active Shaun Sy MD Active CIPRO 500 MG TABS 1 bid x 14 days start 09-28-13 CIPROFLOXACIN HCL 97915062834 No Longer Active Shaun Sy MD Active TRAMADOL HCL 50 MG TABS 1-2 tablets every 6 hours as needed for pain TRAMADOL HCL 13627589119 Active Tu Landeros MD Active HYDROCODONE-ACETAMINOPHEN 5-325 MG TABS 1 tab by mouth every 6 hours as needed for pain HYDROCODONE-ACETAMINOPHEN 45474687597 No Longer Active Tu Landeros MD Active OMEPRAZOLE 20 MG CPDR 1 po q a.m. OMEPRAZOLE 18053170420 Active Fab Morales DO Active GABAPENTIN 100 MG CAPS 1 po bid GABAPENTIN 32353023906 No Longer Active Tu Landeros MD Active B-12 100 MCG TABS Take one by mouth daily CYANOCOBALAMIN 20924825134 No Longer Active Tu Landeros MD Active BACTRIM DS 800-160 MG TABS 1 bid x 14 day start 09-28-13 SULFAMETHOXAZOLE-TRIMETHOPRIM 86013818626 No Longer Active Tu Landeros MD Active CARVEDILOL 12.5 MG TABS 1 po BID CARVEDILOL 83169592850 Active Lesli Kellogg APRN Active TRILIPIX 135 MG CPDR 1 q hs CHOLINE FENOFIBRATE 16416765437 Active Tu Landeros MD Active FENOFIBRATE 145 MG TABS 1 po qd FENOFIBRATE 58161437112 No Longer Active JASPREET Perez Active OMEPRAZOLE 20 MG TBEC 1 PO 30 MIN BEFORE 1ST MEAL OMEPRAZOLE 80240112045 No Longer Active JASPREET Perez Active SIMVASTATIN 40 MG TABS Take one by mouth daily SIMVASTATIN 11775591858 No Longer Active JASPREET Perez Active VENLAFAXINE HCL 75 MG TABS 1 po BID VENLAFAXINE HCL 34250845440 No Longer Active JASPREET Perez Active CIPRO 500 MG TAB 1 tablet by mouth twice daily CIPROFLOXACIN HCL 98914035363 No Longer Active Tu Landeros MD Active VENLAFAXINE HCL 37.5 MG TABS 1 po BID VENLAFAXINE HCL 73974433260 No Longer Active Suzecandido Nicole RMA Active LAMISIL 250 MG TAB 1 po qd TERBINAFINE HCL 08053587549 No Longer Active Tu Landeros MD Active LORTAB 5 5-500 MG TABS 1/2 to 1 tablet by mouth every 4 hours as needed for pain HYDROCODONE-ACETAMINOPHEN 96450503209 No Longer Active Tu Landeros MD Active HYDROCODONE-ACETAMINOPHEN 5-500 MG TABS take one po Q 4-6 hours prn HYDROCODONE-ACETAMINOPHEN 32068107584 No Longer Active Tu Landeros MD Active BACTRIM DS 800-160 MG TABS 1 po BID x 7 days SULFAMETHOXAZOLE-TRIMETHOPRIM 85354593909 No Longer Active Tu Landeros MD Active VENLAFAXINE HCL 75 MG TABS 1 po BID VENLAFAXINE HCL 93920547429 No Longer Active Elvira Cervantes MD PhD Active TRAMADOL HCL 50 MG TABS 1 tablets every 6 hours as needed for pain TRAMADOL HCL 45433987446 No Longer Active Tu Landeros MD Active ACCU-CHEK FASTCLIX LANCETS MISC Use to check bloodsugar three times daily as needed LANCETS 59270946192 No Longer Active Tu Landeros MD Active ACCU-CHEK KEYONA PLUS STRP Use for testing bloodsugars three times daily as needed GLUCOSE BLOOD 89324080089 No Longer Active Tu Landeros MD Active ACCU-CHEK KEYONA PLUS W/DEVICE KIT Use for testing bloodsugars three times daily as needed BLOOD GLUCOSE MONITORING SUPPL 55197936539 No Longer Active Tu Landeros MD Active SPIRONOLACTONE 25 MG TAB 0.5 tablet by mouth daily SPIRONOLACTONE 52560451087 No Longer Active Tu Landeros MD Active ALPRAZOLAM 0.5 MG TABS 1 tab every 6hrs as needed ALPRAZOLAM 00089301612 No Longer Active Tu Landeros MD Active AUGMENTIN 875-125 MG TAB 1 tab by mouth twice daily with food AMOXICILLIN-POT CLAVULANATE 37109749642 No Longer Active Tu Landeros MD Active PREDNISONE 20 MG TAB 2 tabs daily for 3 days, 1 tab daily for 3 days, 1/2 tab daily for 2 days PREDNISONE 37108475450 No Longer Active Tu Landeros MD Active XANAX 0.5 MG TABS 1 tablet every 6 hrs prn ALPRAZOLAM 35824533888 No Longer Active Tu Landeros MD Active PREDNISONE 20 MG TAB 2 tabs daily for 3 days, 1 tab daily for 3 days, 1/2 tab daily for 2 days PREDNISONE 73989890437 No Longer Active Tu Landeros MD Active TRIAMCINOLONE ACETONIDE 0.1 % OINT Apply to affected areas TID for up to 2 weeks TRIAMCINOLONE ACETONIDE 23894316622 No Longer Active Tu Landeros MD Active LORTAB 5 5-500 MG TABS 1/2 to 1 tablet by mouth every 4 hours as needed for pain HYDROCODONE-ACETAMINOPHEN 30197661851 No Longer Active Tu Landeros MD Active MULTIVITAMINS TABS Take one by mouth daily MULTIPLE VITAMIN 20016542201 No Longer Active Tu Landeros MD Active MELATONIN 5 MG TABS Take one by mouth daily MELATONIN 17285889169 No Longer Active Tu Landeros MD Active SOMA 350 MG TAB 1 po q 6 hours prn spasm CARISOPRODOL 34044137258 No Longer Active Tu Landeros MD Active MECLIZINE HCL 25 MG CHEW TAB 1 four times a day as needed for dizziness 08/05 MECLIZINE HCL 32766677311 No Longer Active Fab Morales DO Active ANGEL BREEZE 2 TEST DISK test tid prn GLUCOSE BLOOD 23181552363 No Longer Active Negra Scott RN Active REGLAN 10 MG TAB 1 po TID PRN Nausea METOCLOPRAMIDE HCL 72467403281 No Longer Active Tu Landeros MD Active METFORMIN HCL 500 MG TABS 1 PO BID METFORMIN HCL 37112022988 No Longer Active Tu Landeros MD Active AMBIEN 10 MG TAB 1 tab by mouth at bedtime as needed for sleep ZOLPIDEM TARTRATE 91984779792 No Longer Active Tu Landeros MD Active FLUOXETINE HCL 40 MG CAPS 1 po q day FLUOXETINE HCL 11782425184 No Longer Active Mayra Martindale Active TRILIPIX 135 MG CPDR 1 po qd CHOLINE FENOFIBRATE 16087710700 No Longer Active Tu Landeros MD Active AMBIEN 10 MG TAB 1 tab by mouth at bedtime as needed for sleep AMBIEN 10 MG TAB 085369 ZOLPIDEM TARTRATE Inactive METFORMIN HCL 500 MG TABS 1 PO BID METFORMIN HCL 500 MG TABS 968635 METFORMIN HCL Inactive REGLAN 10 MG TAB 1 po TID PRN Nausea REGLAN 10 MG TAB 179208 METOCLOPRAMIDE HCL Inactive MECLIZINE HCL 25 MG CHEW TAB 1 four times a day as needed for dizziness 08/05 MECLIZINE HCL 25 MG CHEW TAB 373973 MECLIZINE HCL Inactive SOMA 350 MG TAB 1 po q 6 hours prn spasm SOMA 350 MG TAB 607211 CARISOPRODOL Inactive MELATONIN 5 MG TABS Take one by mouth daily MELATONIN 5 MG TABS 581680 MELATONIN Inactive MULTIVITAMINS TABS Take one by mouth daily MULTIVITAMINS TABS MULTIPLE VITAMIN Inactive LORTAB 5 5-500 MG TABS 1/2 to 1 tablet by mouth every 4 hours as needed for pain LORTAB 5 5-500 MG TABS HYDROCODONE- ACETAMINOPHEN Inactive XANAX 0.5 MG TABS 1 tablet every 6 hrs prn XANAX 0.5 MG TABS 573969 ALPRAZOLAM Inactive AUGMENTIN 875-125 MG TAB 1 tab by mouth twice daily with food AUGMENTIN 875-125 MG TAB 695775 AMOXICILLIN-POT CLAVULANATE Inactive ALPRAZOLAM 0.5 MG TABS 1 tab every 6hrs as needed ALPRAZOLAM 0.5 MG TABS 535596 ALPRAZOLAM Inactive SPIRONOLACTONE 25 MG TAB 0.5 tablet by mouth daily SPIRONOLACTONE 25 MG TAB 964769 SPIRONOLACTONE Inactive ACCU-CHEK KEYONA PLUS W/DEVICE KIT Use for testing bloodsugars three times daily as needed ACCU-CHEK KEYONA PLUS W/DEVICE KIT BLOOD GLUCOSE MONITORING SUPPL Inactive ACCU-CHEK KEYONA PLUS STRP Use for testing bloodsugars three times daily as needed ACCU-CHEK KEYONA PLUS STRP GLUCOSE BLOOD Inactive ACCU-CHEK FASTCLIX LANCETS MISC Use to check bloodsugar three times daily as needed ACCU-CHEK FASTCLIX LANCETS MISC 50234305557 LANCETS Inactive TRAMADOL HCL 50 MG TABS 1 tablets every 6 hours as needed for pain TRAMADOL HCL 50 MG TABS 951100 TRAMADOL HCL Inactive VENLAFAXINE HCL 75 MG TABS 1 po BID VENLAFAXINE HCL 75 MG TABS 993716 VENLAFAXINE HCL Inactive HYDROCODONE-ACETAMINOPHEN 5-500 MG TABS take one po Q 4-6 hours prn HYDROCODONE-ACETAMINOPHEN 5-500 MG TABS HYDROCODONE- ACETAMINOPHEN Inactive LORTAB 5 5-500 MG TABS 1/2 to 1 tablet by mouth every 4 hours as needed for pain LORTAB 5 5-500 MG TABS HYDROCODONE- ACETAMINOPHEN Inactive LAMISIL 250 MG TAB 1 po qd LAMISIL 250 MG TAB 073713 TERBINAFINE HCL Inactive VENLAFAXINE HCL 37.5 MG TABS 1 po BID VENLAFAXINE HCL 37.5 MG TABS 156940 VENLAFAXINE HCL Inactive CIPRO 500 MG TAB 1 tablet by mouth twice daily CIPRO 500 MG TAB 748021 CIPROFLOXACIN HCL Inactive VENLAFAXINE HCL 75 MG TABS 1 po BID VENLAFAXINE HCL 75 MG TABS 727959 VENLAFAXINE HCL Inactive SIMVASTATIN 40 MG TABS Take one by mouth daily SIMVASTATIN 40 MG TABS 334525 SIMVASTATIN Inactive OMEPRAZOLE 20 MG TBEC 1 PO 30 MIN BEFORE 1ST MEAL OMEPRAZOLE 20 MG TBEC 026609 OMEPRAZOLE Inactive FENOFIBRATE 145 MG TABS 1 po qd FENOFIBRATE 145 MG TABS 608141 FENOFIBRATE Inactive BACTRIM DS 800-160 MG TABS 1 bid x 14 day start 09-28-13 BACTRIM DS 800-160 MG TABS 410958 SULFAMETHOXAZOLE-TRIMETHOPRIM Inactive B-12 100 MCG TABS Take one by mouth daily B-12 100 MCG TABS CYANOCOBALAMIN Inactive GABAPENTIN 100 MG CAPS 1 po bid GABAPENTIN 100 MG CAPS 273876 GABAPENTIN Inactive HYDROCODONE-ACETAMINOPHEN 5-325 MG TABS 1 tab by mouth every 6 hours as needed for pain HYDROCODONE-ACETAMINOPHEN 5-325 MG TABS 027107 HYDROCODONE-ACETAMINOPHEN Inactive CIPRO 500 MG TABS 1 bid x 14 days start 09-28-13 CIPRO 500 MG TABS 391118 CIPROFLOXACIN HCL Inactive ALIGN 4 MG CAPS [...] as needed DICLOFENAC SODIUM 50 MG TBEC 916834 DICLOFENAC SODIUM Inactive PREDNISONE 20 MG TAB 2 tablets once daily for 2 days, then 1 tablet once daily for 2 days PREDNISONE 20 MG TAB 941242 PREDNISONE Inactive TRUEDRAW LANCING DEVICE MISC Test twice a day dx 250.0 TRUEDRAW LANCING DEVICE MISC LANCET DEVICES Inactive TRUERESULT BLOOD GLUCOSE W/DEVICE KIT test blood sugar twice daily dx 250.00 TRUERESULT BLOOD GLUCOSE W/DEVICE KIT BLOOD GLUCOSE MONITORING SUPPL Inactive FLONASE 50 MCG/ACT SUSP 1 spray each nostril twice daily until bottle empty FLONASE 50 MCG/ACT SUSP 2604978 FLUTICASONE PROPIONATE Inactive VENTOLIN HFA 108 (90 BASE) MCG/ACT AERS 1-2 puffs every 4 hours if needed for cough/congestion VENTOLIN HFA 108 (90 BASE) MCG/ACT AERS ALBUTEROL SULFATE Inactive REQUIP 2 MG TABS Take one tablet at bedtime prn REQUIP 2 MG TABS 154655 ROPINIROLE HCL Inactive SUPER B COMPLEX/VITAMIN C TABS 1 qd SUPER B COMPLEX/ VITAMIN C TABS 03431945368 B COMPLEX-C Inactive TRUEDRAW LANCING DEVICE MISC test blood sugar twice daily dx: 250.00 TRUEDRAW LANCING DEVICE MISC LANCET DEVICES Inactive TRUETEST TEST INVITR STRP test blood sugar twice daily. DX 250.0 TRUETEST TEST INVITR STRP GLUCOSE BLOOD Inactive CYCLOBENZAPRINE HCL 10 MG ORAL TABS 1 po TID PRN Muscle Spasm CYCLOBENZAPRINE HCL 10 MG ORAL TABS 585280 CYCLOBENZAPRINE HCL Inactive DICLOFENAC SODIUM 50 MG ORAL TBEC 1 po BID PRN Pain DICLOFENAC SODIUM 50 MG ORAL TBEC 231776 DICLOFENAC SODIUM Inactive TRIAMCINOLONE ACETONIDE 0.1 % OINT Apply to affected areas TID for up to 2 weeks TRIAMCINOLONE ACETONIDE 0.1 % OINT 3904020 TRIAMCINOLONE ACETONIDE Inactive PREDNISONE 20 MG TAB 2 tabs daily for 3 days, 1 tab daily for 3 days, 1/2 tab daily for 2 days PREDNISONE 20 MG TAB 308316 PREDNISONE Inactive PREDNISONE 20 MG TAB 2 tabs daily for 3 days, 1 tab daily for 3 days, 1/2 tab daily for 2 days PREDNISONE 20 MG TAB 963920 PREDNISONE Inactive BACTRIM DS 800-160 MG TABS 1 po BID x 7 days BACTRIM DS 800-160 MG TABS 872340 SULFAMETHOXAZOLE-TRIMETHOPRIM Inactive ZITHROMAX 250 MG TAB 2 po today, then 1 po q days 2-5 ZITHROMAX 250 MG TAB 3693502 AZITHROMYCIN Inactive Advance Directives Directive Description Start Date DISCUSSED WITH PATIENT -- NO DECISION MADE Immunizations Vaccine Administration Date Value Standard Description Seasonal influenza vaccine, injectable, containing preservative, for > 3 years old (Afluria, FluLaval, Fluzone, Fluvirin, Fluarix, Agriflu(>=18 yo)) Fluzone (>3 yrs.) [[id number]] Influenza, seasonal, injectable influenza immunization (Flu Vax) has been administered 02/22/2012 influenza virus vaccine, unspecified formulation Seasonal influenza vaccine, injectable, containing preservative, for > 3 years old (Afluria, FluLaval, Fluzone, Fluvirin, Fluarix, Agriflu(>=18 yo)) Fluzone (>3 yrs.) [[id number]] Influenza, seasonal, injectable Vital Signs Date Name Value Unit Range Description blood pressure, diastolic 49 mm[Hg] BP ac [...] Magnesium - Chemistry sodium, serum 143 mmol/L 897-781 7821/01/10 carbon dioxide, venous blood 28.0 mmol/L 21.0-32.0 potassium, serum 4.5 mmol/L 3.5-5.2 chloride, serum 104 mmol/L 98-107 blood glucose 158 mg/dL 65-110 urea nitrogen, blood 23 mg/dL 7-18 creatinine, serum 1.06 mg/dL 0.55-1.30 alanine aminotransferase (SGPT), serum 42 U/L 12-78 aspartate aminotransferase (SGOT), serum 32 U/L 15-37 calcium, serum 9.3 mg/dL 8.5-10.1 bilirubin, serum, total 0.20 mg/dL 0.00-1.00 cholesterol, serum 177 mg/dL 581-103 5163/01/10 triglyceride, serum, fasting 320 mg/dL 30-200 HDL cholesterol, serum 46 mg/dL 32-96 LDL cholesterol, serum 67 mg/dL 0-130 Lab Report: COMPREHENSIVE METABOLIC PANEL, LIPID PANEL, HEMOGLOBIN A1c - Chemistry cholesterol, serum 135 mg/dL 118-689 2190/05/17 HDL cholesterol, serum 41 mg/dL > OR=46 [...] <30 Encounters Code Encounter Date Provider Facility CPT-81925 Level 4 Est. Patient 14:28:34 CDT Tu Landeros MD [facility] CPT-78522 Level 3 Est. Patient 13:33:09 CDT Tu Landeros MD [facility] CPT-77140 Level 4 Est. Patient 14:29:21 CDT Tu Landeros MD [facility] CPT-09428 Level 4 Est. Patient 09:08:17 CLIENT CARE COORDINATOR Tu Landeros MD [facility] CPT-04359 Level 4 Est. Patient 14:40:19 CDT Tu Landeros MD [facility] CPT-51006 Level 4 Est. Patient 14:06:04 CLIENT CARE COORDINATOR Tu Landeros MD [facility] CPT-51684 Level 3 Est. Patient 14:05:18 CLIENT CARE COORDINATOR Tu Landeros MD [facility] CPT-54183 Level 3 Est. Patient 10:06:54 CL[facility] CARE [facility]ORDIN[facility] Level 4 Est. Patient 13:50:18 CLIENT CARE COORDINATOR Tu Landeros MD [facility] CPT-85565 Level 3 Est. Patient 10:30:04 CDT Tu Landeros MD [facility] CPT-68491 Level 4 Est. Patient 11:03:38 CDT Tu Landeros MD [facility] CPT-50627 Level 3 Est. Patient 10:20:44 CDT Fab Morales DO [facility] CPT-79843 Level 4 Est. Patient 14:38:57 CDT Tu Landeros MD [facility] CPT-33703 Level 4 Est. Patient 14:27:39 CLIENT CARE COORDINATOR Tu Landeros MD [facility] CPT-57793 Level 4 Est. Patient 09:45:25 CDT Tu Landeros MD [facility] CPT-48730 Level 4 Est. Patient 09:05:20 CLIENT CARE COORDINATOR Tu Landeros MD [facility] CPT-61081 Level 4 Est. Patient 14:09:06 CDT Tu Landeros MD [facility] CPT-59396 Level 3 Est. Patient 13:36:54 CDT Tu Landeros MD [facility] CPT-76250 Level 3 Est. Patient 08:59:14 CDT Tu Landeros MD [facility] CPT-29417 Level 3 Est. Patient 13:48:35 CDT Fab Morales DO [facility] CPT-19879 Level 4 Est. Patient 10:05:48 CDT Tu Landeros MD [facility] CPT-07759 Level 3 Est. Patient 13:38:42 CDT Marek BANKS [facility] CPT-29694 Level 5 Est. Patient 08:08:39 CDT Jerrica FRANCIS [facility] CPT-13392 Level 4 Est. Patient 14:23:38 CDT Tu Landeros MD [facility] CPT-50739 Level 3 Est. Patient 11:44:04 CDT Tu Landeros MD [facility] CPT-44007 Level 3 Est. Patient 11:03:20 CLIENT CARE COORDINATOR Tu Landeros MD [facility] CPT-31549 Level 3 Est. Patient 11:03:14 CLIENT CARE COORDINATOR Tu Landeros MD [facility] CPT-94804 Level 3 Est. Patient 12:42:49 CDT Tu Landeros MD [facility] CPT-30967 Level 3 Est. Patient 11:52:06 CDT Tu Landeros MD [facility] CPT-60289 Level 3 Est. Patient 13:58:11 CDT Tu Landeros MD [facility] CPT-83053 Level 3 Est. Patient 17:50:07 CDT Fab Morales DO [facility] CPT-55953 Level 3 Est. Patient 12:06:29 CDT Elvira Cervantes MD [facility] CPT-09005 Level 3 Est. Patient 15:50:32 CDT Tu Landeros MD [facility] CPT-90727 Level 4 Est. Patient 16:08:29 CDT Tu Landeros MD [facility] CPT-16828 Level 3 Est. Patient 16:04:19 CDT Tu Landeros MD [facility] CPT-50696 Level 3 Est. Patient 11:22:30 CLIENT CARE COORDINATOR Tu Landeros MD [facility] CPT-80759 Level 4 Est. Patient 16:24:02 CLIENT CARE COORDINATOR Tu Landeros MD [facility] CPT-05757 Level 3 Est. Patient 17:21:23 CLIENT CARE COORDINATOR Tu Landeros MD [facility] Procedures Code Procedure Name Date Entry Date Standard Description CPT-57793 Shoulder, right, comp min 2V - XRAY USE ONLY 13:50:22 CDT CPT-G0009 Administration of Pneumococcal Vaccine 15:08:26 CDT CPT-27111 Prevnar 13 Intramuscular Suspension 15:08:26 CDT 10/08 CPT-G0439 [facility] Annual Wellness Exam 14:29:22 CDT CPT-76312 Venipuncture Draw Fee 13:15:35 CDT CPT-01233 Magnesium - LAB USE ONLY 11:14:20 CLIENT CARE COORDINATOR CPT-48195 Lipid - LAB USE ONLY 11:14:20 CLIENT CARE COORDINATOR CPT-69843 HGBA1C - LAB USE ONLY 11:14:20 CLIENT CARE COORDINATOR CPT-49089 CMP - LAB USE ONLY 11:14:19 CLIENT CARE COORDINATOR CPT-87846 CBC - LAB USE ONLY 11:14:19 CLIENT CARE COORDINATOR CPT-70085 Venipuncture Draw Fee 11:14:18 CLIENT CARE COORDINATOR CPT-71330 First Vx - Ix admin for Medicare patients 16:46:52 CDT CPT-23457 Fluzone Preservative Free Intramuscular Suspension 16:46 :51 CDT CPT-60463 CBC - LAB USE ONLY 17:14:46 CDT CPT-01656 HGBA1C - LAB USE ONLY 17:14:46 CDT CPT-39266 Venipuncture Draw Fee 17:14:46 CDT CPT-G0438 Initial Annual Wellness Exam 14:13:04 CDT CPT-42495 Breathing Tx 10:06:54 CLIENT CARE COORDINATOR CPT-28751 Postop F/U Visit 10:02:45 CDT CPT-LR Lesion Removal 09:02:56 CDT CPT-JTINJ Asp/Joint Injection 15:51:27 CLIENT CARE COORDINATOR CPT-OV Office Visit 15:52:02 CLIENT CARE COORDINATOR CPT-OV Office Visit 15:45:11 CDT CPT-000 Give Zostavax 14:09:06 CDT CPT-85337 Administration single or combination vaccine inc oral 15 :19:04 CDT CPT-86516 Zoster Vaccine (Zostavax) 15:19:04 CDT CPT-92683 Administration single or combination vaccine inc oral 20 :51:03 CDT CPT-35137 Influenza split virus > age 3 20:51:03 CDT CPT-35044 No Charge Offi Visit 14:52:03 CDT CPT-OV Office Visit 14:57:43 CDT CPT-OV Office Visit 15:22:32 CDT CPT-79172 Administration single or combination vaccine inc oral 11 :33:15 CDT CPT-68775 Influenza split virus > age 3 11:33:15 CDT
--- OUTSIDE RECORDS SUMMARY | 2018-04-25 13:24 | XMS REPORT | Clinical Summary ---
Author Author Admin, SACHI Organization [employer] Address Unknown Phone Unavailable Allergies, Adverse Reactions, [...] Diabetes mellitus, type II, controlled 250.00 Active uT Landeros MD Diabetes mellitus without mention of [...] 100 MG CAPS 1 po TID GABAPENTIN 40812782283 Active Tu Landeros MD Active DICLOFENAC SODIUM 50 MG ORAL TBEC 1 po BID PRN Pain DICLOFENAC SODIUM 13634150631 No Longer Active Tu Landeros MD Active CYCLOBENZAPRINE HCL 10 MG ORAL TABS 1 po TID PRN Muscle Spasm CYCLOBENZAPRINE HCL 51886279974 No Longer Active Tu Landeros MD Active INVOKANA 100 MG ORAL TABS 1 po qd CANAGLIFLOZIN 39135327961 Active Tu Landeros MD Active GLIPIZIDE 5 MG ORAL TABS 1 po qd GLIPIZIDE 44814306035 No Longer Active Tu Landeros MD Active VENLAFAXINE HCL 75 MG ORAL TABS 1 po BID VENLAFAXINE HCL 71795461211 Active Tu Landeros MD Active GLIMEPIRIDE 1 MG ORAL TABS 1 po qd GLIMEPIRIDE 80765605193 No Longer Active Tu Landeros MD Active TRUE METRIX BLOOD GLUCOSE TEST INVITR STRP Test blood sugar BID Dx: E11.9 GLUCOSE BLOOD 25035362857 Active Tu Landeros MD Active TRUE METRIX AIR GLUCOSE METER W/DEVICE KIT Test blood glucose BID Dx: E11.9 BLOOD GLUCOSE MONITORING SUPPL 71063989600 Active Tu Landeros MD Active TRUETEST TEST INVITR STRP test blood sugar twice daily. DX 250.0 GLUCOSE BLOOD 56978066731 No Longer Active Mirna Stanley LPN Active TRUEDRAW LANCING DEVICE MISC test blood sugar twice daily dx: 250.00 LANCET DEVICES 95801080741 No Longer Active Mirna Stanley LPN Active ENALAPRIL MALEATE 20 MG TABS 2 po qd ENALAPRIL MALEATE 50479387965 Active Lesli Kellogg APRN Active SUPER B COMPLEX/VITAMIN C TABS 1 qd B COMPLEX-C 95722428943 No Longer Active Tu Landeros MD Active ASPIRIN EC 81 MG ORAL TBEC 1 po qd ASPIRIN 52863118654 Active Tu Landeros MD Active GLUCOSAMINE 500 MG TABS 2 po qd GLUCOSAMINE Active Tu Landeros MD Active SIMVASTATIN 40 MG TABS 0.5 po qHS SIMVASTATIN 58854369919 Active Tu Landeros MD Active FISH OIL 1000 MG CAPS 1 po qd OMEGA-3 FATTY ACIDS 72995077098 Active Tu Landeros MD Active METFORMIN HCL 1000 MG TABS 1 po BID METFORMIN HCL 90046890552 Active Tu Landeros MD Active KLOR-CON 10 10 MEQ CR-TABS 2 po qd POTASSIUM CHLORIDE 57396677792 Active Tu Landeros MD Active FUROSEMIDE 40 MG TAB 1 po qd FUROSEMIDE 52849259669 Active Tu Landeros MD Active REQUIP 2 MG ORAL TABS 1 po qHS PRN Restless legs ROPINIROLE HCL 02101068838 Active Tu Landeros MD Active REQUIP 2 MG TABS Take one tablet at bedtime prn ROPINIROLE HCL 42710535934 No Longer Active Tu Landeros MD Active VENTOLIN HFA 108 (90 BASE) MCG/ACT AERS 1-2 puffs every 4 hours if needed for cough/congestion ALBUTEROL SULFATE 52128894190 No Longer Active Ambika Aden APRN Active ZITHROMAX 250 MG TAB 2 po today, then 1 po q days 2-5 AZITHROMYCIN 61912644007 No Longer Active Miranda Suresh APRN Active FLONASE 50 MCG/ACT SUSP 1 spray each nostril twice daily until bottle empty FLUTICASONE PROPIONATE 80977573806 No Longer Active Tu Landeros MD Active COLACE 100 MG CAP 1 po BID PRN Constipation DOCUSATE SODIUM 13419208426 Active Tu Landeros MD Active TRUERESULT BLOOD GLUCOSE W/DEVICE KIT test blood sugar twice daily dx 250.00 BLOOD GLUCOSE MONITORING SUPPL 37412839502 No Longer Active Tu Landeros MD Active TRUEDRAW LANCING DEVICE MISC Test twice a day dx 250.0 LANCET DEVICES 09734251413 No Longer Active Tu Landeros MD Active PREDNISONE 20 MG TAB 2 tablets once daily for 2 days, then 1 tablet once daily for 2 days PREDNISONE 31110510171 No Longer Active Tu Landeros MD Active DICLOFENAC SODIUM 50 MG TBEC 1 tablet by mouth three times a day as needed DICLOFENAC SODIUM 15012104837 No Longer Active Fab Morales DO Active EMBRACE BLOOD GLUCOSE TEST STRP test blood sugar twice daily DX 250.0 2014 GLUCOSE BLOOD 08272139331 No Longer Active Tu Landeros MD Active TRUETEST TEST STRP test blood sugar three times daily dx: 250.00 GLUCOSE BLOOD 37833500516 No Longer Active Suze Corey RMA Active TRUERESULT BLOOD GLUCOSE W/DEVICE KIT use to test blood sugar tid dx: 250.00 BLOOD GLUCOSE MONITORING SUPPL 34716042373 No Longer Active Suze Corey RMA Active ALIGN 4 MG CAPS 1 tid PROBIOTIC PRODUCT 35126819147 No Longer Active Shaun Sy MD Active CIPRO 500 MG TABS 1 bid x 14 days start 09-28-13 CIPROFLOXACIN HCL 74158885794 No Longer Active Shaun Sy MD Active TRAMADOL HCL 50 MG TABS 1-2 tablets every 6 hours as needed for pain TRAMADOL HCL 04301754871 Active Tu Landeros MD Active HYDROCODONE-ACETAMINOPHEN 5-325 MG TABS 1 tab by mouth every 6 hours as needed for pain HYDROCODONE-ACETAMINOPHEN 32073996311 No Longer Active Tu Landeros MD Active OMEPRAZOLE 20 MG CPDR 1 po q a.m. OMEPRAZOLE 03693870217 Active Fab Morales DO Active GABAPENTIN 100 MG CAPS 1 po bid GABAPENTIN 79182378819 No Longer Active Tu Landeros MD Active B-12 100 MCG TABS Take one by mouth daily CYANOCOBALAMIN 33413222615 No Longer Active Tu Landeros MD Active BACTRIM DS 800-160 MG TABS 1 bid x 14 day start 09-28-13 SULFAMETHOXAZOLE-TRIMETHOPRIM 26527581369 No Longer Active Tu Landeros MD Active CARVEDILOL 12.5 MG TABS 1 po BID CARVEDILOL 94943934487 Active Lesli Kellogg APRN Active TRILIPIX 135 MG CPDR 1 q hs CHOLINE FENOFIBRATE 75918330047 Active Tu Landeros MD Active FENOFIBRATE 145 MG TABS 1 po qd FENOFIBRATE 68329148012 No Longer Active JASPREET Perez Active OMEPRAZOLE 20 MG TBEC 1 PO 30 MIN BEFORE 1ST MEAL OMEPRAZOLE 07881119193 No Longer Active JASPREET Perez Active SIMVASTATIN 40 MG TABS Take one by mouth daily SIMVASTATIN 61096340104 No Longer Active JASPREET Perez Active VENLAFAXINE HCL 75 MG TABS 1 po BID VENLAFAXINE HCL 57732674871 No Longer Active JASPREET Perez Active CIPRO 500 MG TAB 1 tablet by mouth twice daily CIPROFLOXACIN HCL 25589672424 No Longer Active Tu Landeros MD Active VENLAFAXINE HCL 37.5 MG TABS 1 po BID VENLAFAXINE HCL 24493057778 No Longer Active Suzecandido Nicole RMA Active LAMISIL 250 MG TAB 1 po qd TERBINAFINE HCL 14322213944 No Longer Active Tu Landeros MD Active LORTAB 5 5-500 MG TABS 1/2 to 1 tablet by mouth every 4 hours as needed for pain HYDROCODONE-ACETAMINOPHEN 57887741562 No Longer Active Tu Landeros MD Active HYDROCODONE-ACETAMINOPHEN 5-500 MG TABS take one po Q 4-6 hours prn HYDROCODONE-ACETAMINOPHEN 17958799945 No Longer Active Tu Landeros MD Active BACTRIM DS 800-160 MG TABS 1 po BID x 7 days SULFAMETHOXAZOLE-TRIMETHOPRIM 01779622192 No Longer Active Tu Landeros MD Active VENLAFAXINE HCL 75 MG TABS 1 po BID VENLAFAXINE HCL 06821214529 No Longer Active Elvira Cervantes MD PhD Active TRAMADOL HCL 50 MG TABS 1 tablets every 6 hours as needed for pain TRAMADOL HCL 67819004152 No Longer Active Tu Landeros MD Active ACCU-CHEK FASTCLIX LANCETS MISC Use to check bloodsugar three times daily as needed LANCETS 84222524052 No Longer Active Tu Landeros MD Active ACCU-CHEK KEYONA PLUS STRP Use for testing bloodsugars three times daily as needed GLUCOSE BLOOD 16437775713 No Longer Active Tu Landeros MD Active ACCU-CHEK KEYONA PLUS W/DEVICE KIT Use for testing bloodsugars three times daily as needed BLOOD GLUCOSE MONITORING SUPPL 32587796337 No Longer Active Tu Landeros MD Active SPIRONOLACTONE 25 MG TAB 0.5 tablet by mouth daily SPIRONOLACTONE 94819705624 No Longer Active Tu Landeros MD Active ALPRAZOLAM 0.5 MG TABS 1 tab every 6hrs as needed ALPRAZOLAM 40041624967 No Longer Active Tu Landeros MD Active AUGMENTIN 875-125 MG TAB 1 tab by mouth twice daily with food AMOXICILLIN-POT CLAVULANATE 00407375602 No Longer Active Tu Landeros MD Active PREDNISONE 20 MG TAB 2 tabs daily for 3 days, 1 tab daily for 3 days, 1/2 tab daily for 2 days PREDNISONE 91827849890 No Longer Active Tu Landeros MD Active XANAX 0.5 MG TABS 1 tablet every 6 hrs prn ALPRAZOLAM 75449317255 No Longer Active Tu Landeros MD Active PREDNISONE 20 MG TAB 2 tabs daily for 3 days, 1 tab daily for 3 days, 1/2 tab daily for 2 days PREDNISONE 85341991240 No Longer Active Tu Landeros MD Active TRIAMCINOLONE ACETONIDE 0.1 % OINT Apply to affected areas TID for up to 2 weeks TRIAMCINOLONE ACETONIDE 11618454838 No Longer Active Tu Landeros MD Active LORTAB 5 5-500 MG TABS 1/2 to 1 tablet by mouth every 4 hours as needed for pain HYDROCODONE-ACETAMINOPHEN 60497986290 No Longer Active Tu Landeros MD Active MULTIVITAMINS TABS Take one by mouth daily MULTIPLE VITAMIN 81268989363 No Longer Active Tu Landeros MD Active MELATONIN 5 MG TABS Take one by mouth daily MELATONIN 17185191078 No Longer Active Tu Landeros MD Active SOMA 350 MG TAB 1 po q 6 hours prn spasm CARISOPRODOL 43967226641 No Longer Active Tu Landeros MD Active MECLIZINE HCL 25 MG CHEW TAB 1 four times a day as needed for dizziness 08/05 MECLIZINE HCL 83955584007 No Longer Active Fab Morales DO Active ANGEL BREEZE 2 TEST DISK test tid prn GLUCOSE BLOOD 08854190372 No Longer Active Negra Scott RN Active REGLAN 10 MG TAB 1 po TID PRN Nausea METOCLOPRAMIDE HCL 25754822845 No Longer Active Tu Landeros MD Active METFORMIN HCL 500 MG TABS 1 PO BID METFORMIN HCL 86317973683 No Longer Active Tu Landeros MD Active AMBIEN 10 MG TAB 1 tab by mouth at bedtime as needed for sleep ZOLPIDEM TARTRATE 45682503223 No Longer Active Tu Landeros MD Active FLUOXETINE HCL 40 MG CAPS 1 po q day FLUOXETINE HCL 74054466122 No Longer Active Mayra [place] Active TRILIPIX 135 MG CPDR 1 po qd CHOLINE FENOFIBRATE 51988012246 No Longer Active Tu Landeros MD Active ALPRAZOLAM 0.5 MG TABS 1 tab every 6hrs as needed ALPRAZOLAM 0.5 MG TABS 120179 ALPRAZOLAM Inactive AMBIEN 10 MG TAB 1 tab by mouth at bedtime as needed for sleep AMBIEN 10 MG TAB 378965 ZOLPIDEM TARTRATE Inactive BACTRIM DS 800-160 MG TABS 1 po BID x 7 days BACTRIM DS 800-160 MG TABS 731905 SULFAMETHOXAZOLE-TRIMETHOPRIM Inactive BACTRIM DS 800-160 MG TABS 1 bid x 14 day start 09-28-13 BACTRIM DS 800-160 MG TABS 037242 SULFAMETHOXAZOLE-TRIMETHOPRIM Inactive CIPRO 500 MG TABS 1 bid x 14 days start 09-28-13 CIPRO 500 MG TABS 399737 CIPROFLOXACIN HCL Inactive CIPRO 500 MG TAB 1 tablet by mouth twice daily CIPRO 500 MG TAB 975584 CIPROFLOXACIN HCL Inactive CYCLOBENZAPRINE HCL 10 MG ORAL TABS 1 po TID PRN Muscle Spasm CYCLOBENZAPRINE HCL 10 MG ORAL TABS 367920 CYCLOBENZAPRINE HCL Inactive MECLIZINE HCL 25 MG CHEW TAB 1 four times a day as needed for dizziness 08/05 MECLIZINE HCL 25 MG CHEW TAB 228324 MECLIZINE HCL Inactive MULTIVITAMINS TABS Take one by mouth daily MULTIVITAMINS TABS MULTIPLE VITAMIN Inactive PREDNISONE 20 MG TAB 2 tabs daily for 3 days, 1 tab daily for 3 days, 1/2 tab daily for 2 days PREDNISONE 20 MG TAB 402837 PREDNISONE Inactive PREDNISONE 20 MG TAB 2 tabs daily for 3 days, 1 tab daily for 3 days, 1/2 tab daily for 2 days PREDNISONE 20 MG TAB 356365 PREDNISONE Inactive PREDNISONE 20 MG TAB 2 tablets once daily for 2 days, then 1 tablet once daily for 2 days PREDNISONE 20 MG TAB 498968 PREDNISONE Inactive REGLAN 10 MG TAB 1 po TID PRN Nausea REGLAN 10 MG TAB 160462 METOCLOPRAMIDE HCL Inactive SOMA 350 MG TAB 1 po q 6 hours prn spasm SOMA 350 MG TAB 932393 CARISOPRODOL Inactive SPIRONOLACTONE 25 MG TAB 0.5 tablet by mouth daily SPIRONOLACTONE 25 MG TAB 040380 SPIRONOLACTONE Inactive TRIAMCINOLONE ACETONIDE 0.1 % OINT Apply to affected areas TID for up to 2 weeks TRIAMCINOLONE ACETONIDE 0.1 % OINT 7862447 TRIAMCINOLONE ACETONIDE Inactive XANAX 0.5 MG TABS 1 tablet every 6 hrs prn XANAX 0.5 MG TABS 157704 ALPRAZOLAM Inactive METFORMIN HCL 500 MG TABS 1 PO BID METFORMIN HCL 500 MG TABS 254720 METFORMIN HCL Inactive SIMVASTATIN 40 MG TABS Take one by mouth daily SIMVASTATIN 40 MG TABS 870917 SIMVASTATIN Inactive VENLAFAXINE HCL 75 MG TABS 1 po BID VENLAFAXINE HCL 75 MG TABS 535963 VENLAFAXINE HCL Inactive VENLAFAXINE HCL 75 MG TABS 1 po BID VENLAFAXINE HCL 75 MG TABS 505341 VENLAFAXINE HCL Inactive VENLAFAXINE HCL 37.5 MG TABS 1 po BID VENLAFAXINE HCL 37.5 MG TABS 005478 VENLAFAXINE HCL Inactive LORTAB 5 5-500 MG [...] for pain TRAMADOL HCL 50 MG TABS 441935 TRAMADOL HCL Inactive HYDROCODONE-ACETAMINOPHEN 5-500 MG TABS take one po Q 4-6 hours prn HYDROCODONE-ACETAMINOPHEN 5-500 MG TABS HYDROCODONE- ACETAMINOPHEN Inactive DICLOFENAC SODIUM 50 MG TBEC 1 tablet by mouth three times a day as needed DICLOFENAC SODIUM 50 MG TBEC 910697 DICLOFENAC SODIUM Inactive DICLOFENAC SODIUM 50 MG ORAL TBEC 1 po BID PRN Pain DICLOFENAC SODIUM 50 MG ORAL TBEC 050219 DICLOFENAC SODIUM Inactive AUGMENTIN 875-125 MG TAB 1 tab by mouth twice daily with food AUGMENTIN 875-125 MG TAB 108623 AMOXICILLIN-POT CLAVULANATE Inactive LAMISIL 250 MG TAB 1 po qd LAMISIL 250 MG TAB 726443 TERBINAFINE HCL Inactive MELATONIN 5 MG TABS Take one by mouth daily MELATONIN 5 MG TABS 683153 MELATONIN Inactive GABAPENTIN 100 MG CAPS 1 po bid GABAPENTIN 100 MG CAPS 703806 GABAPENTIN Inactive ZITHROMAX 250 MG TAB 2 po today, then 1 po q days 2-5 ZITHROMAX 250 MG TAB 5239876 AZITHROMYCIN Inactive SUPER B COMPLEX/VITAMIN C TABS 1 qd SUPER B COMPLEX/ VITAMIN C TABS 41942679098 B COMPLEX-C Inactive REQUIP 2 MG TABS Take one tablet at bedtime prn REQUIP 2 MG TABS 609830 ROPINIROLE HCL Inactive FLONASE 50 MCG/ACT SUSP 1 spray each nostril twice daily until bottle empty FLONASE 50 MCG/ACT SUSP 0603164 FLUTICASONE PROPIONATE Inactive VENTOLIN HFA 108 (90 BASE) MCG/ACT AERS 1-2 puffs every 4 hours if needed for cough/congestion VENTOLIN HFA 108 (90 BASE) MCG/ACT AERS ALBUTEROL SULFATE Inactive HYDROCODONE-ACETAMINOPHEN 5-325 MG TABS 1 tab by mouth every 6 hours as needed for pain HYDROCODONE-ACETAMINOPHEN 5-325 MG TABS 176840 HYDROCODONE-ACETAMINOPHEN Inactive FENOFIBRATE 145 MG TABS 1 po qd FENOFIBRATE 145 MG TABS 796515 FENOFIBRATE Inactive OMEPRAZOLE 20 MG TBEC 1 PO 30 MIN BEFORE 1ST MEAL OMEPRAZOLE 20 MG TBEC 598721 OMEPRAZOLE Inactive TRUERESULT BLOOD GLUCOSE W/DEVICE KIT [...] daily as needed ACCU-CHEK FASTCLIX LANCETS MISC 98385280786 LANCETS Inactive ACCU-CHEK KEYONA PLUS STRP Use [...] Fluvirin, Fluarix, Agriflu(>=18 yo)) Fluzone (>3 yrs.) [[id number]] Influenza, seasonal, injectable influenza immunization (Flu Vax) has been administered 02/22/2012 influenza virus vaccine, unspecified formulation Seasonal influenza vaccine, injectable, containing preservative, for > 3 years old (Afluria, FluLaval, Fluzone, Fluvirin, Fluarix, Agriflu(>=18 yo)) Fluzone (>3 yrs.) [[id number]] Influenza, seasonal, injectable Vital Signs Date Name [...] Magnesium - Chemistry sodium, serum 143 mmol/L 253-060 7044/01/10 carbon dioxide, venous blood 28.0 mmol/L 21.0-32.0 potassium, serum 4.5 mmol/L 3.5-5.2 chloride, serum 104 mmol/L 98-107 blood glucose 158 mg/dL 65-110 urea nitrogen, blood 23 mg/dL 7-18 creatinine, serum 1.06 mg/dL 0.55-1.30 alanine aminotransferase (SGPT), serum 42 U/L 12-78 aspartate aminotransferase (SGOT), serum 32 U/L 15-37 calcium, serum 9.3 mg/dL 8.5-10.1 bilirubin, serum, total 0.20 mg/dL 0.00-1.00 cholesterol, serum 177 mg/dL 925-418 7017/01/10 triglyceride, serum, fasting 320 mg/dL 30-200 HDL cholesterol, serum 46 mg/dL 32-96 LDL cholesterol, serum 67 mg/dL 0-130 Lab Report: COMPREHENSIVE METABOLIC PANEL, LIPID PANEL, HEMOGLOBIN A1c - Chemistry cholesterol, serum 135 mg/dL 397-459 3068/05/17 HDL cholesterol, serum 41 mg/dL > OR=46 [...] <30 Encounters Code Encounter Date Provider Facility CPT-64398 Level 4 Est. Patient 14:28:34 CDT Tu Landeros MD [facility] CPT-03420 Level 3 Est. Patient 13:33:09 CDT Tu Landeros MD [facility] CPT-31563 Level 4 Est. Patient 14:29:21 CDT Tu Landeros MD [facility] CPT-08573 Level 4 Est. Patient 09:08:17 BUN PANNER Tu Landeros MD [facility] CPT-19381 Level 4 Est. Patient 14:40:19 CDT Tu Landeros MD [facility] CPT-35894 Level 4 Est. Patient 14:06:04 BUN PANNER Tu Landeros MD [facility] CPT-84089 Level 3 Est. Patient 14:05:18 BUN PANNER Tu Landeros MD [facility] CPT-88761 Level 3 Est. Patient 10:06:54 [facility]UN PANNER [facility] Level 4 Est. Patient 13:50:18 BUN PANNER Tu Landeros MD [facility] CPT-86856 Level 3 Est. Patient 10:30:04 CDT Tu Landeros MD [facility] CPT-87377 Level 4 Est. Patient 11:03:38 CDT Tu Landeros MD [facility] CPT-38846 Level 3 Est. Patient 10:20:44 CDT Fab Morales DO [facility] CPT-88727 Level 4 Est. Patient 14:38:57 CDT Tu Landeros MD [facility] CPT-78067 Level 4 Est. Patient 14:27:39 BUN PANNER Tu Landeros MD [facility] CPT-03013 Level 4 Est. Patient 09:45:25 CDT Tu Landeros MD [facility] CPT-55876 Level 4 Est. Patient 09:05:20 BUN PANNER Tu Landeros MD [facility] CPT-04913 Level 4 Est. Patient 14:09:06 CDT Tu Landeros MD [facility] CPT-88565 Level 3 Est. Patient 13:36:54 CDT Tu Landeros MD [facility] CPT-40081 Level 3 Est. Patient 08:59:14 CDT Tu Landeros MD [facility] CPT-13164 Level 3 Est. Patient 13:48:35 CDT Fab Morales DO [facility] CPT-24166 Level 4 Est. Patient 10:05:48 CDT Tu Landeros MD [facility] CPT-57454 Level 3 Est. Patient 13:38:42 CDT Marek BANKS [facility] CPT-47638 Level 5 Est. Patient 08:08:39 CDT Jerrica FRANCIS [facility] CPT-44745 Level 4 Est. Patient 14:23:38 CDT Tu Landeros MD [facility] CPT-35066 Level 3 Est. Patient 11:44:04 CDT Tu Landeros MD [facility] CPT-78449 Level 3 Est. Patient 11:03:20 BUN PANNER Tu Landeros MD [facility] CPT-14467 Level 3 Est. Patient 11:03:14 BUN PANNER Tu Landeros MD [facility] CPT-52315 Level 3 Est. Patient 12:42:49 CDT Tu Landeros MD [facility] CPT-54243 Level 3 Est. Patient 11:52:06 CDT Tu Landeros MD [facility] CPT-78797 Level 3 Est. Patient 13:58:11 CDT Tu Landeros MD [facility] CPT-93392 Level 3 Est. Patient 17:50:07 CDT Fab Morales DO [facility] CPT-73764 Level 3 Est. Patient 12:06:29 CDT Elvira Cervantes MD [facility] CPT-93980 Level 3 Est. Patient 15:50:32 CDT Tu Landeros MD [facility] CPT-42998 Level 4 Est. Patient 16:08:29 CDT Tu Landeros MD [facility] CPT-76856 Level 3 Est. Patient 16:04:19 CDT Tu Landeros MD [facility] CPT-74432 Level 3 Est. Patient 11:22:30 BUN PANNER Tu Landeros MD [facility] CPT-36597 Level 4 Est. Patient 16:24:02 BUN PANNER Tu Landeros MD [facility] CPT-19964 Level 3 Est. Patient 17:21:23 BUN PANNER Tu Landeros MD [facility] Procedures Code Procedure Name Date Entry Date Standard Description CPT-30784 Shoulder, right, comp min 2V - XRAY USE ONLY 13:50:22 CDT CPT-G0009 Administration of Pneumococcal Vaccine 15:08:26 CDT CPT-20593 Prevnar 13 Intramuscular Suspension 15:08:26 CDT 10/08 CPT-G0439 [facility] Annual Wellness Exam 14:29:22 CDT CPT-99093 Venipuncture Draw Fee 13:15:35 CDT CPT-01579 Magnesium - LAB USE ONLY 11:14:20 BUN PANNER CPT-40627 Lipid - LAB USE ONLY 11:14:20 BUN PANNER CPT-83771 HGBA1C - LAB USE ONLY 11:14:20 BUN PANNER CPT-45714 CMP - LAB USE ONLY 11:14:19 BUN PANNER CPT-03856 CBC - LAB USE ONLY 11:14:19 BUN PANNER CPT-48689 Venipuncture Draw Fee 11:14:18 BUN PANNER CPT-39657 First Vx - Ix admin for Medicare patients 16:46:52 CDT CPT-78827 Fluzone Preservative Free Intramuscular Suspension 16:46 :51 CDT CPT-00184 CBC - LAB USE ONLY 17:14:46 CDT CPT-41406 HGBA1C - LAB USE ONLY 17:14:46 CDT CPT-41898 Venipuncture Draw Fee 17:14:46 CDT CPT-G0438 Initial Annual Wellness Exam 14:13:04 CDT CPT-21172 Breathing Tx 10:06:54 BUN PANNER CPT-74166 Postop F/U Visit 10:02:45 CDT CPT-LR Lesion Removal 09:02:56 CDT CPT-JTINJ Asp/Joint Injection 15:51:27 BUN PANNER CPT-OV Office Visit 15:52:02 BUN PANNER CPT-OV Office Visit 15:45:11 CDT CPT-000 Give Zostavax 14:09:06 CDT CPT-97774 Administration single or combination vaccine inc oral 15 :19:04 CDT CPT-96262 Zoster Vaccine (Zostavax) 15:19:04 CDT CPT-13062 Administration single or combination vaccine inc oral 20 :51:03 CDT CPT-78074 Influenza split virus > age 3 20:51:03 CDT CPT-19446 No Charge Offi Visit 14:52:03 CDT CPT-OV Office Visit 14:57:43 CDT CPT-OV Office Visit 15:22:32 CDT CPT-81148 Administration single or combination vaccine inc oral 11 :33:15 CDT CPT-59586 Influenza split virus > age 3 11:33:15 CDT
--- OUTSIDE RECORDS SUMMARY | 2018-04-25 13:26 | XMS REPORT | Clinical Summary ---
Author Author Admin, SACHI Organization [employer] Address Unknown Phone Unavailable Allergies, Adverse Reactions, [...] or lump HEALTH SCREENING V70.0 Inactive Shaun yS MD Routine general medical examination at a [...] MD Otalgia, unspecified Hot flashes 627.2 Resolved uT Landeros MD Symptomatic menopausal or female climacteric [...] OR LUMP ICD-782.2 Inactive Tu Landeros MD INSOMNIA, PERSISTENT ICD-307.42 Inactive Tu Landeros MD Open wound of [...] toe pain ICD-729.5 Inactive Tu Landeros MD ONYCHOMYCOSIS ICD-110.1 Inactive Tu Landeros MD Medication List Medication Instructions Start Date Stop Date Generic Name NDC Status Provider Patient Instruction MAGNESIUM OXIDE 400 MG ORAL TABLET 1 po BID MAGNESIUM OXIDE [id number] Active Tu Landeros MD Active SIMVASTATIN 20 MG ORAL TABLET 0.5 po qHS SIMVASTATIN 70970952722 Active Tu Landeros MD Active DICLOFENAC SODIUM 75 MG ORAL TABLET DELAYED RELEASE 1 po BID PRN Pain DICLOFENAC SODIUM 82370532347 No Longer Active Tu Landeros MD Active GABAPENTIN 100 MG ORAL CAPSULE 1 po TID GABAPENTIN 49093364336 Active Tu Landeros MD Active DICLOFENAC SODIUM 50 MG ORAL TABLET DELAYED RELEASE 1 po BID PRN Pain DICLOFENAC SODIUM 01262481128 No Longer Active Tu Landeros MD Active CYCLOBENZAPRINE HCL 10 MG ORAL TABLET 1 po TID PRN Muscle Spasm CYCLOBENZAPRINE HCL 53876483585 No Longer Active Tu Landeros MD Active INVOKANA 100 MG ORAL TABLET 1 po qd CANAGLIFLOZIN 24936264809 Active Tu Landeros MD Active GLIPIZIDE 5 MG ORAL TABLET 1 po qd GLIPIZIDE 28489998193 No Longer Active Tu Landeros MD Active VENLAFAXINE HCL 75 MG ORAL TABLET 1 po BID VENLAFAXINE HCL 99803090085 Active Tu Landeros MD Active GLIMEPIRIDE 1 MG ORAL TABLET 1 po qd GLIMEPIRIDE 68562725774 No Longer Active Tu Landeros MD Active TRUE METRIX BLOOD GLUCOSE TEST IN VITRO STRIP Test blood sugar BID Dx: E11.9 GLUCOSE BLOOD 12504096028 Active Tu Landeros MD Active TRUE METRIX AIR GLUCOSE METER w/Device KIT Test blood glucose BID Dx: E11.9 BLOOD GLUCOSE MONITORING SUPPL 47818294838 Active Tu Landeros MD Active TRUETEST TEST IN VITRO STRIP test blood sugar twice daily. DX 250.0 GLUCOSE BLOOD 33509966020 No Longer Active Mirna Stanley LPN Active TRUEDRAW LANCING DEVICE test blood sugar twice daily dx: 250.00 LANCET DEVICES 27428535202 No Longer Active Mirna Stanley LPN Active ENALAPRIL MALEATE 20 MG ORAL TABLET 2 po qd ENALAPRIL MALEATE 79411668361 Active Tu Landeros MD Active SUPER B COMPLEX/VITAMIN C ORAL TABLET 1 qd B COMPLEX- C 58027786599 No Longer Active Tu Landeros MD Active ASPIRIN EC 81 MG ORAL TABLET DELAYED RELEASE 1 po qd ASPIRIN 96712345740 Active Tu Landeros MD Active GLUCOSAMINE 500 MG TABS 2 po qd GLUCOSAMINE Active Tu Landeros MD Active FISH OIL 1000 MG ORAL CAPSULE 1 po qd OMEGA-3 FATTY ACIDS 58247062331 Active Tu Landeros MD Active METFORMIN HCL 1000 MG ORAL TABLET 1 po BID METFORMIN HCL 99136810476 Active Tu Landeros MD Active KLOR-CON 10 10 MEQ ORAL TABLET EXTENDED RELEASE 2 po qd POTASSIUM CHLORIDE 92869690176 Active Tu Landeros MD Active FUROSEMIDE 40 MG ORAL TABLET 1 po qd FUROSEMIDE 90677438110 Active Tu Landeros MD Active REQUIP 2 MG ORAL TABLET 1 po qHS PRN Restless legs ROPINIROLE HCL 11950198720 Active Tu Landeros MD Active REQUIP 2 MG ORAL TABLET Take one tablet at bedtime prn ROPINIROLE HCL 85562266228 No Longer Active Tu Landeros MD Active VENTOLIN HFA 108 (90 Base) MCG/ACT INHALATION AEROSOL SOLUTION 1-2 puffs every 4 hours if needed for cough/congestion ALBUTEROL SULFATE 28648506358 No Longer Active Ambika Aden APRN Active ZITHROMAX 250 MG ORAL TABLET 2 po today, then 1 po q days 2-5 AZITHROMYCIN 50261746477 No Longer Active Miranda Suresh APRN Active FLONASE 50 MCG/ACT NASAL SUSPENSION 1 spray each nostril twice daily until bottle empty FLUTICASONE PROPIONATE 65709129423 No Longer Active Tu Landeros MD Active COLACE 100 MG ORAL CAPSULE 1 po BID PRN Constipation DOCUSATE SODIUM 98316996844 Active Tu Landeros MD Active TRUERESULT BLOOD GLUCOSE w/Device KIT test blood sugar twice daily dx 250.00 BLOOD GLUCOSE MONITORING SUPPL 33862128833 No Longer Active Tu Landeros MD Active TRUEDRAW LANCING DEVICE Test twice a day dx 250.0 LANCET DEVICES 70329843321 No Longer Active Tu Landeros MD Active PREDNISONE 20 MG ORAL TABLET 2 tablets once daily for 2 days, then 1 tablet once daily for 2 days PREDNISONE 52580293441 No Longer Active Tu Landeros MD Active DICLOFENAC SODIUM 50 MG ORAL TABLET DELAYED RELEASE 1 tablet by mouth three times a day as needed DICLOFENAC SODIUM 80028545760 No Longer Active Fab Morales DO Active EMBRACE BLOOD GLUCOSE TEST IN VITRO STRIP test blood sugar twice daily DX 250.0 GLUCOSE BLOOD 06380568359 No Longer Active Tu Landeros MD Active TRUETEST TEST IN VITRO STRIP test blood sugar three times daily dx: 250.00 GLUCOSE BLOOD 17760186394 No Longer Active Suze VOGEL Active TRUERESULT BLOOD GLUCOSE w/Device KIT use to test blood sugar tid dx: 250.00 BLOOD GLUCOSE MONITORING SUPPL 17050424600 No Longer Active Suze Corey VOGEL Active ALIGN 4 MG ORAL CAPSULE 1 tid PROBIOTIC PRODUCT 11371351604 No Longer Active Shaun Sy MD Active CIPRO 500 MG ORAL TABLET 1 bid x 14 days start 09-28-13 CIPROFLOXACIN HCL 32705728550 No Longer Active Shaun Sy MD Active TRAMADOL HCL 50 MG ORAL TABLET 1-2 tablets every 6 hours as needed for pain TRAMADOL HCL 95408656258 Active Tu Landeros MD Active HYDROCODONE-ACETAMINOPHEN 5-325 MG ORAL TABLET 1 tab by mouth every 6 hours as needed for pain HYDROCODONE-ACETAMINOPHEN 13719911541 No Longer Active Tu Landeros MD Active OMEPRAZOLE 20 MG ORAL CAPSULE DELAYED RELEASE 1 po q a.m. OMEPRAZOLE 84581581958 Active Fab Morales DO Active GABAPENTIN 100 MG ORAL CAPSULE 1 po bid GABAPENTIN 29213469749 No Longer Active Tu Landeros MD Active B-12 100 MCG ORAL TABLET Take one by mouth daily CYANOCOBALAMIN 47463917034 No Longer Active Tu Landeros MD Active BACTRIM DS 800-160 MG ORAL TABLET 1 bid x 14 day start 09-28-13 SULFAMETHOXAZOLE-TRIMETHOPRIM 35241176746 No Longer Active Tu Landeros MD Active CARVEDILOL 12.5 MG ORAL TABLET 1 po BID CARVEDILOL 53240451128 Active Tu Landeros MD Active TRILIPIX 135 MG ORAL CAPSULE DELAYED RELEASE 1 q hs CHOLINE FENOFIBRATE 78692657539 Active Tu Landeros MD Active FENOFIBRATE 145 MG ORAL TABLET 1 po qd FENOFIBRATE 07265574986 No Longer Active JASPREET Perez Active OMEPRAZOLE 20 MG ORAL TABLET DELAYED RELEASE 1 PO 30 MIN BEFORE 1ST MEAL 2010 OMEPRAZOLE 05768416621 No Longer Active JASPREET Perez Active SIMVASTATIN 40 MG ORAL TABLET Take one by mouth daily SIMVASTATIN 31454482220 No Longer Active JASPREET Perez Active VENLAFAXINE HCL 75 MG ORAL TABLET 1 po BID VENLAFAXINE HCL 70219149396 No Longer Active JASPREET Perez Active CIPRO 500 MG ORAL TABLET 1 tablet by mouth twice daily CIPROFLOXACIN HCL 37319545722 No Longer Active Tu Landeros MD Active VENLAFAXINE HCL 37.5 MG ORAL TABLET 1 po BID VENLAFAXINE HCL 50329247820 No Longer Active Suze VOGEL Active LAMISIL 250 MG ORAL TABLET 1 po qd TERBINAFINE HCL 66431262894 No Longer Active Tu Landeros MD Active LORTAB 5-500 MG ORAL TABLET 1/2 to 1 tablet by mouth every 4 hours as needed for pain HYDROCODONE-ACETAMINOPHEN 59789650431 No Longer Active Tu Landeros MD Active HYDROCODONE-ACETAMINOPHEN 5-500 MG ORAL TABLET take one po Q 4-6 hours prn HYDROCODONE-ACETAMINOPHEN 80585642261 No Longer Active Tu Landeros MD Active BACTRIM DS 800-160 MG ORAL TABLET 1 po BID x 7 days SULFAMETHOXAZOLE-TRIMETHOPRIM 61910013135 No Longer Active Tu Landeros MD Active VENLAFAXINE HCL 75 MG ORAL TABLET 1 po BID VENLAFAXINE HCL 79140182359 No Longer Active Elvira Cervantes MD PhD Active TRAMADOL HCL 50 MG ORAL TABLET 1 tablets every 6 hours as needed for pain TRAMADOL HCL 79567205370 No Longer Active Tu Landeros MD Active ACCU-CHEK FASTCLIX LANCETS Use to check bloodsugar three times daily as needed LANCETS 88462372076 No Longer Active Tu Landeros MD Active ACCU-CHEK KEYONA PLUS IN VITRO STRIP Use for testing bloodsugars three times daily as needed GLUCOSE BLOOD 50102408323 No Longer Active Tu Landeros MD Active ACCU-CHEK KEYONA PLUS w/Device KIT Use for testing bloodsugars three times daily as needed BLOOD GLUCOSE MONITORING SUPPL 90500916868 No Longer Active Tu Landeros MD Active SPIRONOLACTONE 25 MG ORAL TABLET 0.5 tablet by mouth daily 09/09 SPIRONOLACTONE 53004652299 No Longer Active Tu Landeros MD Active ALPRAZOLAM 0.5 MG ORAL TABLET 1 tab every 6hrs as needed ALPRAZOLAM 26234908501 No Longer Active Tu Landeros MD Active AUGMENTIN 875-125 MG ORAL TABLET 1 tab by mouth twice daily with food AMOXICILLIN-POT CLAVULANATE 82605653184 No Longer Active Tu Landeros MD Active PREDNISONE 20 MG ORAL TABLET 2 tabs daily for 3 days, 1 tab daily for 3 days, 1/2 tab daily for 2 days PREDNISONE 41390916825 No Longer Active Tu Landeros MD Active XANAX 0.5 MG ORAL TABLET 1 tablet every 6 hrs prn ALPRAZOLAM 38789967104 No Longer Active Tu Landeros MD Active PREDNISONE 20 MG ORAL TABLET 2 tabs daily for 3 days, 1 tab daily for 3 days, 1/2 tab daily for 2 days PREDNISONE 37526378741 No Longer Active Tu Landeros MD Active TRIAMCINOLONE ACETONIDE 0.1 % EXTERNAL OINTMENT Apply to affected areas TID for up to 2 weeks TRIAMCINOLONE ACETONIDE 26999421955 No Longer Active Tu Landeros MD Active LORTAB 5-500 MG ORAL TABLET 1/2 to 1 tablet by mouth every 4 hours as needed for pain HYDROCODONE-ACETAMINOPHEN 05182543866 No Longer Active Tu Landeros MD Active MULTIVITAMINS TABS Take one by mouth daily MULTIPLE VITAMIN 22145252591 No Longer Active Tu Landeros MD Active MELATONIN 5 MG ORAL TABLET Take one by mouth daily MELATONIN 26490142901 No Longer Active Tu Landeros MD Active SOMA 350 MG ORAL TABLET 1 po q 6 hours prn spasm CARISOPRODOL 42905338474 No Longer Active Tu Landeros MD Active MECLIZINE HCL 25 MG ORAL TABLET CHEWABLE 1 four times a day as needed for dizziness MECLIZINE HCL 26678449643 No Longer Active Fab Morales DO Active ANGEL BREEZE 2 TEST IN VITRO DISK test tid prn GLUCOSE BLOOD 60441965816 No Longer Active Negra Scott RN Active REGLAN 10 MG ORAL TABLET 1 po TID PRN Nausea METOCLOPRAMIDE HCL 63787893804 No Longer Active Tu Landeros MD Active METFORMIN HCL 500 MG ORAL TABLET 1 PO BID METFORMIN HCL 61130470564 No Longer Active Tu Landeros MD Active AMBIEN 10 MG ORAL TABLET 1 tab by mouth at bedtime as needed for sleep 06/10 ZOLPIDEM TARTRATE 48480485021 No Longer Active Tu Landeros MD Active FLUOXETINE HCL 40 MG ORAL CAPSULE 1 po q day FLUOXETINE HCL 29408503520 No Longer Active Mayra Terry Active TRILIPIX 135 MG ORAL CAPSULE DELAYED RELEASE 1 po qd CHOLINE FENOFIBRATE 82354906205 No Longer Active Tu Landeros MD Active AMBIEN 10 MG ORAL TABLET 1 tab by mouth at bedtime as needed for sleep 06/10 AMBIEN 10 MG ORAL TABLET 715392 ZOLPIDEM TARTRATE Inactive METFORMIN HCL 500 MG ORAL TABLET 1 PO BID METFORMIN HCL 500 MG ORAL TABLET 638885 METFORMIN HCL Inactive REGLAN 10 MG ORAL TABLET 1 po TID PRN Nausea REGLAN 10 MG ORAL TABLET 760701 METOCLOPRAMIDE HCL Inactive MECLIZINE HCL 25 MG ORAL TABLET CHEWABLE 1 four times a day as needed for dizziness MECLIZINE HCL 25 MG ORAL TABLET CHEWABLE 038499 MECLIZINE HCL Inactive SOMA 350 MG ORAL TABLET 1 po q 6 hours prn spasm SOMA 350 MG ORAL TABLET 537299 CARISOPRODOL Inactive MELATONIN 5 MG ORAL TABLET Take one by mouth daily MELATONIN 5 MG ORAL TABLET 747167 MELATONIN Inactive MULTIVITAMINS TABS Take one by mouth daily MULTIVITAMINS TABS MULTIPLE VITAMIN Inactive LORTAB 5-500 MG ORAL TABLET 1/2 to 1 tablet by mouth every 4 hours as needed for pain LORTAB 5-500 MG ORAL TABLET 334191 HYDROCODONE-ACETAMINOPHEN Inactive XANAX 0.5 MG ORAL TABLET 1 tablet every 6 hrs prn XANAX 0.5 MG ORAL TABLET 220995 ALPRAZOLAM Inactive AUGMENTIN 875-125 MG ORAL TABLET 1 tab by mouth twice daily with food AUGMENTIN 875-125 MG ORAL TABLET 543847 AMOXICILLIN-POT CLAVULANATE Inactive ALPRAZOLAM 0.5 MG ORAL TABLET 1 tab every 6hrs as needed ALPRAZOLAM 0.5 MG ORAL TABLET 061510 ALPRAZOLAM Inactive SPIRONOLACTONE 25 MG ORAL TABLET 0.5 tablet by mouth daily 09/09 SPIRONOLACTONE 25 MG ORAL TABLET 969833 SPIRONOLACTONE Inactive ACCU-CHEK KEYONA PLUS w/Device KIT [...] times daily as needed ACCU-CHEK FASTCLIX LANCETS 10598575694 LANCETS Inactive TRAMADOL HCL 50 MG ORAL TABLET 1 tablets every 6 hours as needed for pain TRAMADOL HCL 50 MG ORAL TABLET 399538 TRAMADOL HCL Inactive VENLAFAXINE HCL 75 MG ORAL TABLET 1 po BID VENLAFAXINE HCL 75 MG ORAL TABLET 168235 VENLAFAXINE HCL Inactive HYDROCODONE-ACETAMINOPHEN 5-500 MG ORAL TABLET take one po Q 4-6 hours prn HYDROCODONE-ACETAMINOPHEN 5-500 MG ORAL TABLET 890616 HYDROCODONE-ACETAMINOPHEN Inactive LORTAB 5-500 MG ORAL TABLET 1/2 to 1 tablet by mouth every 4 hours as needed for pain LORTAB 5-500 MG ORAL TABLET 285969 HYDROCODONE-ACETAMINOPHEN Inactive LAMISIL 250 MG ORAL TABLET 1 po qd LAMISIL 250 MG ORAL TABLET 519633 TERBINAFINE HCL Inactive VENLAFAXINE HCL 37.5 MG ORAL TABLET 1 po BID VENLAFAXINE HCL 37.5 MG ORAL TABLET 444146 VENLAFAXINE HCL Inactive CIPRO 500 MG ORAL TABLET 1 tablet by mouth twice daily CIPRO 500 MG ORAL TABLET 769631 CIPROFLOXACIN HCL Inactive VENLAFAXINE HCL 75 MG ORAL TABLET 1 po BID VENLAFAXINE HCL 75 MG ORAL TABLET 454464 VENLAFAXINE HCL Inactive SIMVASTATIN 40 MG ORAL TABLET Take one by mouth daily SIMVASTATIN 40 MG ORAL TABLET 468688 SIMVASTATIN Inactive OMEPRAZOLE 20 MG ORAL TABLET DELAYED RELEASE 1 PO 30 MIN BEFORE 1ST MEAL 2010 OMEPRAZOLE 20 MG ORAL TABLET DELAYED RELEASE 584667 OMEPRAZOLE Inactive FENOFIBRATE 145 MG ORAL TABLET 1 po qd FENOFIBRATE 145 MG ORAL TABLET 773343 FENOFIBRATE Inactive BACTRIM DS 800-160 MG ORAL TABLET 1 bid x 14 day start 09-28-13 BACTRIM DS 800-160 MG ORAL TABLET 279977 SULFAMETHOXAZOLE- TRIMETHOPRIM Inactive B-12 100 MCG ORAL TABLET Take one by mouth daily B-12 100 MCG ORAL TABLET CYANOCOBALAMIN Inactive GABAPENTIN 100 MG ORAL CAPSULE 1 po bid GABAPENTIN 100 MG ORAL CAPSULE 649684 GABAPENTIN Inactive HYDROCODONE-ACETAMINOPHEN 5-325 MG ORAL TABLET 1 tab by mouth every 6 hours as needed for pain HYDROCODONE-ACETAMINOPHEN 5-325 MG ORAL TABLET 500996 HYDROCODONE-ACETAMINOPHEN Inactive CIPRO 500 MG ORAL TABLET 1 bid x 14 days start 09-28-13 CIPRO 500 MG ORAL TABLET 279411 CIPROFLOXACIN HCL Inactive ALIGN 4 MG ORAL [...] SODIUM 50 MG ORAL TABLET DELAYED RELEASE 051656 DICLOFENAC SODIUM Inactive PREDNISONE 20 MG ORAL TABLET 2 tablets once daily for 2 days, then 1 tablet once daily for 2 days PREDNISONE 20 MG ORAL TABLET 207228 PREDNISONE Inactive TRUEDRAW LANCING DEVICE Test twice a day dx 250.0 TRUEDRAW LANCING DEVICE LANCET DEVICES Inactive TRUERESULT BLOOD GLUCOSE w/Device KIT test blood sugar twice daily dx 250.00 TRUERESULT BLOOD GLUCOSE w/Device KIT BLOOD GLUCOSE MONITORING SUPPL Inactive FLONASE 50 MCG/ACT NASAL SUSPENSION 1 spray each nostril twice daily until bottle empty FLONASE 50 MCG/ACT NASAL SUSPENSION 8596568 FLUTICASONE PROPIONATE Inactive VENTOLIN HFA 108 (90 Base) MCG/ACT INHALATION AEROSOL SOLUTION 1-2 puffs every 4 hours if needed for cough/congestion VENTOLIN HFA 108 (90 Base) MCG/ACT INHALATION AEROSOL SOLUTION ALBUTEROL SULFATE Inactive REQUIP 2 MG ORAL TABLET Take one tablet at bedtime prn REQUIP 2 MG ORAL TABLET 491507 ROPINIROLE HCL Inactive SUPER B COMPLEX/VITAMIN C ORAL TABLET 1 qd SUPER B COMPLEX/VITAMIN C ORAL TABLET 94640801259 B COMPLEX-C Inactive TRUEDRAW LANCING DEVICE test blood sugar twice daily dx: 250.00 TRUEDRAW LANCING DEVICE LANCET DEVICES Inactive TRUETEST TEST IN VITRO STRIP test blood sugar twice daily. DX 250.0 TRUETEST TEST IN VITRO STRIP GLUCOSE BLOOD Inactive CYCLOBENZAPRINE HCL 10 MG ORAL TABLET 1 po TID PRN Muscle Spasm CYCLOBENZAPRINE HCL 10 MG ORAL TABLET 503099 CYCLOBENZAPRINE HCL Inactive DICLOFENAC SODIUM 50 MG ORAL TABLET DELAYED RELEASE 1 po BID PRN Pain DICLOFENAC SODIUM 50 MG ORAL TABLET DELAYED RELEASE 533516 DICLOFENAC SODIUM Inactive DICLOFENAC SODIUM 75 MG ORAL TABLET DELAYED RELEASE 1 po BID PRN Pain DICLOFENAC SODIUM 75 MG ORAL TABLET DELAYED RELEASE 429006 DICLOFENAC SODIUM Inactive TRIAMCINOLONE ACETONIDE 0.1 % EXTERNAL OINTMENT Apply to affected areas TID for up to 2 weeks TRIAMCINOLONE ACETONIDE 0.1 % EXTERNAL OINTMENT 8970922 TRIAMCINOLONE ACETONIDE Inactive PREDNISONE 20 MG ORAL TABLET 2 tabs daily for 3 days, 1 tab daily for 3 days, 1/2 tab daily for 2 days PREDNISONE 20 MG ORAL TABLET 341900 PREDNISONE Inactive PREDNISONE 20 MG ORAL TABLET 2 tabs daily for 3 days, 1 tab daily for 3 days, 1/2 tab daily for 2 days PREDNISONE 20 MG ORAL TABLET 354184 PREDNISONE Inactive BACTRIM DS 800-160 MG ORAL TABLET 1 po BID x 7 days BACTRIM DS 800-160 MG ORAL TABLET 757062 SULFAMETHOXAZOLE-TRIMETHOPRIM Inactive ZITHROMAX 250 MG ORAL TABLET 2 po today, then 1 po q days 2-5 ZITHROMAX 250 MG ORAL TABLET 707312 AZITHROMYCIN Inactive Advance Directives Directive Description Start Date DISCUSSED WITH PATIENT -- NO DECISION MADE Immunizations Vaccine Administration Date Value Standard Description Seasonal influenza vaccine, injectable, containing preservative, for > 3 years old (Afluria, FluLaval, Fluzone, Fluvirin, Fluarix, Agriflu(>=18 yo)) Fluzone (>3 yrs.) [[id number]] Influenza, seasonal, injectable influenza immunization (Flu Vax) has been administered 02/22/2012 influenza virus vaccine, unspecified formulation Seasonal influenza vaccine, injectable, containing preservative, for > 3 years old (Afluria, FluLaval, Fluzone, Fluvirin, Fluarix, Agriflu(>=18 yo)) Fluzone (>3 yrs.) [[id number]] Influenza, seasonal, injectable Vital Signs Date Name [...] ... - Chemistry sodium, serum 141 mmol/L 742-610 0421/01/16 carbon dioxide, venous blood 28.3 mmol/L 21.0-32.0 [...] 6.7 % 4.3-6.0 cholesterol, serum 106 mg/dL 539-815 2597/01/16 triglyceride, serum, fasting 173 mg/dL 30-200 HDL [...] A1c - Chemistry cholesterol, serum 135 mg/dL 541-921 1089/05/17 HDL cholesterol, serum 41 mg/dL > OR=46 triglyceride, serum, fasting 206 mg/dL <150 LDL cholesterol, serum 53 MG/DL (CALC) mg/dL <130 cholesterol/HDL ratio, serum 3.3 (calc) < OR=5.0 Lab Report: HGBA1C - Chemistry hemoglobin A1C, blood, as % of total hemoglobin 6.5 % 4.3-6.0 Encounters Code Encounter Date Provider Facility CPT-71801 Level 4 Est. Patient 13:42:02 ASSOCIATE QUALITY ENGINEER Tu Landeros MD [facility] CPT-96183 Level 3 Est. Patient 14:20:36 CDT Tu Landeros MD [facility] CPT-16214 Level 4 Est. Patient 14:28:34 CDT Tu Landeros MD [facility] CPT-24334 Level 3 Est. Patient 13:33:09 CDT Tu Landeros MD [facility] CPT-83122 Level 4 Est. Patient 14:29:21 CDT Tu Landeros MD [facility] CPT-59917 Level 4 Est. Patient 09:08:17 ASSOCIATE QUALITY ENGINEER Tu Landeros MD [facility] CPT-32742 Level 4 Est. Patient 14:40:19 CDT Tu Landeros MD [facility] CPT-77194 Level 4 Est. Patient 14:06:04 ASSOCIATE QUALITY ENGINEER Tu Landeros MD [facility] CPT-20451 Level 3 Est. Patient 14:05:18 ASSOCIATE QUALITY ENGINEER Tu Landeros MD [facility] CPT-92637 Level 3 Est. Patient 10:06:54 ASSOCIATE QUALITY ENGINEER Miranda Suresh APRN [facility] CPT-96229 Level 4 Est. Patient 13:50:18 ASSOCIATE QUALITY ENGINEER Tu Landeros MD [facility] CPT-47017 Level 3 Est. Patient 10:30:04 CDT Tu Landeros MD [facility] CPT-93472 Level 4 Est. Patient 11:03:38 CDT Tu Landeros MD [facility] CPT-13590 Level 3 Est. Patient 10:20:44 CDT Fab Morales DO [facility] CPT-21860 Level 4 Est. Patient 14:38:57 CDT Tu Landeros MD [facility] CPT-44167 Level 4 Est. Patient 14:27:39 ASSOCIATE QUALITY ENGINEER Tu Landeros MD [facility] CPT-09467 Level 4 Est. Patient 09:45:25 CDT Tu Landeros MD [facility] CPT-71830 Level 4 Est. Patient 09:05:20 ASSOCIATE QUALITY ENGINEER Tu Landeros MD [facility] CPT-25605 Level 4 Est. Patient 14:09:06 CDT Tu Landeros MD [facility] CPT-78459 Level 3 Est. Patient 13:36:54 CDT Tu Landeros MD [facility] CPT-41926 Level 3 Est. Patient 08:59:14 CDT Tu Landeros MD [facility] CPT-25216 Level 3 Est. Patient 13:48:35 CDT Fab Morales DO [facility] CPT-99604 Level 4 Est. Patient 10:05:48 CDT Tu Landeros MD [facility] CPT-77568 Level 3 Est. Patient 13:38:42 CDT Marek BANKS [facility] CPT-21896 Level 5 Est. Patient 08:08:39 CDT Jerrica FRANCIS [facility] CPT-27129 Level 4 Est. Patient 14:23:38 CDT Tu Landeros MD [facility] CPT-00633 Level 3 Est. Patient 11:44:04 CDT Tu Landeros MD [facility] CPT-53563 Level 3 Est. Patient 11:03:20 ASSOCIATE QUALITY ENGINEER Tu Landeros MD [facility] CPT-31919 Level 3 Est. Patient 11:03:14 ASSOCIATE QUALITY ENGINEER Tu Landeros MD [facility] CPT-52736 Level 3 Est. Patient 12:42:49 CDT Tu Landeros MD [facility] CPT-34940 Level 3 Est. Patient 11:52:06 CDT Tu Landeros MD [facility] CPT-91709 Level 3 Est. Patient 13:58:11 CDT Tu Landeros MD [facility] CPT-61341 Level 3 Est. Patient 17:50:07 CDT Fab Morales DO [facility] CPT-97209 Level 3 Est. Patient 12:06:29 CDT Elvira Cervantes MD, PhD [facility] CPT-25661 Level 3 Est. Patient 15:50:32 CDT Tu Landeros MD [facility] CPT-67086 Level 4 Est. Patient 16:08:29 CDT Tu Landeros MD [facility] CPT-21903 Level 3 Est. Patient 16:04:19 CDT Tu Landeros MD [facility] CPT-83999 Level 3 Est. Patient 11:22:30 ASSOCIATE QUALITY ENGINEER Tu Landeros MD [facility] CPT-02580 Level 4 Est. Patient 16:24:02 ASSOCIATE QUALITY ENGINEER Tu Landeros MD [facility] CPT-82671 Level 3 Est. Patient 17:21:23 ASSOCIATE QUALITY ENGINEER Tu Landeros MD [facility] Procedures Code Procedure Name Date Entry Date Standard Description CPT-53045 Shoulder, right, comp min 2V - XRAY USE ONLY 13:50:22 CDT CPT-G0009 Administration of Pneumococcal Vaccine 15:08:26 CDT CPT-36504 Prevnar 13 Intramuscular Suspension 15:08:26 CDT 10/08 CPT-G0439 [facility] Annual Wellness Exam 14:29:22 CDT CPT-63329 Venipuncture Draw Fee 13:15:35 CDT CPT-72391 Magnesium - LAB USE ONLY 11:14:20 ASSOCIATE QUALITY ENGINEER CPT-31257 Lipid - LAB USE ONLY 11:14:20 ASSOCIATE QUALITY ENGINEER CPT-59570 HGBA1C - LAB USE ONLY 11:14:20 ASSOCIATE QUALITY ENGINEER CPT-61871 CMP - LAB USE ONLY 11:14:19 ASSOCIATE QUALITY ENGINEER CPT-26113 CBC - LAB USE ONLY 11:14:19 ASSOCIATE QUALITY ENGINEER CPT-68628 Venipuncture Draw Fee 11:14:18 ASSOCIATE QUALITY ENGINEER CPT-00430 First Vx - Ix admin for Medicare patients 16:46:52 CDT CPT-84877 Fluzone Preservative Free Intramuscular Suspension 16:46 :51 CDT CPT-84607 CBC - LAB USE ONLY 17:14:46 CDT CPT-10593 HGBA1C - LAB USE ONLY 17:14:46 CDT CPT-12106 Venipuncture Draw Fee 17:14:46 CDT CPT-G0438 Initial Annual Wellness Exam 14:13:04 CDT CPT-69194 Breathing Tx 10:06:54 ASSOCIATE QUALITY ENGINEER CPT-13959 Postop F/U Visit 10:02:45 CDT CPT-LR Lesion Removal 09:02:56 CDT CPT-JTINJ Asp/Joint Injection 15:51:27 ASSOCIATE QUALITY ENGINEER CPT-OV Office Visit 15:52:02 ASSOCIATE QUALITY ENGINEER CPT-OV Office Visit 15:45:11 CDT CPT-000 Give Zostavax 14:09:06 CDT CPT-09012 Administration single or combination vaccine inc oral 15 :19:04 CDT CPT-93563 Zoster Vaccine (Zostavax) 15:19:04 CDT CPT-30213 Administration single or combination vaccine inc oral 20 :51:03 CDT CPT-84889 Influenza split virus > age 3 20:51:03 CDT CPT-67202 No Charge Offi Visit 14:52:03 CDT CPT-OV Office Visit 14:57:43 CDT CPT-OV Office Visit 15:22:32 CDT CPT-62616 Administration single or combination vaccine inc oral 11 :33:15 CDT CPT-77021 Influenza split virus > age 3 11:33:15 CDT
--- NOTE | 2018-04-25 13:27 | Cardiac Procedure Note-CS/ASA ---
Pre-Procedure Note Pre-Op Procedure Note H&P Reviewed The H&P was reviewed, patient examined and no changes noted. Date H&P Reviewed: Apr 25, 2018 Time H&P Reviewed: 13:27 Conscious Sedation Pre-Proced Time 13:27 ASA Score 3 For ASA 3 and 4: Consider anesthesia and medical clearance. Also, for patients with a history of failed moderate sedation consider anesthesia. Airway Lungs Heart ASA score ASA 1: a normal healthy patient ASA 2: a patient with a mild systemic disease (mid diabetes, controlled hypertension, obesity ASA 3: a patient with a severe systemic disease that limits activity (angina , COPD, prior Myocardial infarction) ASA 4: a patient with an incapacitating disease that is a constant threat to life (CHF, renal failure) ASA 5: a moribund patient not expected to survive 24 hrs. (ruptured aneurysm) ASA 6: a declared brain patient whose organs are being harvested. For emergent operations, add the letter E after the classification Mallampati Classification Grade 1 Sedation Plan Analgesia, Amnesia, Plan communicated to team members, Discussed options with patient/fam, Discussed risks with patient/fam The patient is an appropriate candidate to undergo the planned procedure, sedation, and anesthesia. The patient immediately re-assessed prior to indication. Eliane HELMS MD Apr 25, 2018 13:27
--- OUTSIDE RECORDS SUMMARY | 2018-04-25 13:27 | XMS REPORT | Clinical Summary ---
Author Author Admin, SACHI Organization [facility] Address Unknown Phone Unavailable Allergies, Adverse Reactions, [...] Urinary frequency FEVER UNSPECIFIED 780.60 Resolved Tu Lanedros MD Fever, unspecified MUSCLE SPASM 728.85 Resolved [...] Otalgia, unspecified Hot flashes 627.2 Resolved Tu Ladneros MD Symptomatic menopausal or female climacteric states [...] not further specified 369.20 Active Ambika Markie WASTE PICKER Moderate or severe vision impairment, both eyes, [...] Sebaceous cyst ICD-706.2 Inactive Tu Landeros MD SHOULDER PAIN, LEFT ICD-719.41 Inactive Tu Landeros MD Medication List Medication Instructions Start Date Stop Date Generic Name NDC Status Provider Patient Instruction VENTOLIN HFA 108 (90 BASE) MCG/ACT AERS 1-2 puffs every 4 hours if needed for cough/congestion ALBUTEROL SULFATE 96190082565 No Longer Active Ambika Aden APRN Active ZITHROMAX 250 MG TAB 2 po today, then 1 po q days 2-5 AZITHROMYCIN 56122456063 No Longer Active Miranda Suresh APRN Active METFORMIN HCL 1000 MG TABS 1 tablet by mouth twice daily METFORMIN HCL 51696618559 Active Tiffanie Doyle Active FLONASE 50 MCG/ACT SUSP 1 spray each nostril twice daily until bottle empty FLUTICASONE PROPIONATE 98369639126 No Longer Active Tu Landeros MD Active COLACE 100 MG CAP 1 po BID PRN Constipation DOCUSATE SODIUM 30101111446 Active Tu Landeros MD Active SIMVASTATIN 40 MG TABS 0.5 tab daily at bedtime SIMVASTATIN 39425013353 Active Tu Landeros MD Active TRUERESULT BLOOD GLUCOSE W/DEVICE KIT test blood sugar twice daily dx 250.00 BLOOD GLUCOSE MONITORING SUPPL 93216661955 No Longer Active Tu Landeros MD Active TRUEDRAW LANCING DEVICE MISC Test twice a day dx 250.0 LANCET DEVICES 08625954596 No Longer Active Tu Landeros MD Active PREDNISONE 20 MG TAB 2 tablets once daily for 2 days, then 1 tablet once daily for 2 days PREDNISONE 68998969174 No Longer Active Tu Landeros MD Active DICLOFENAC SODIUM 50 MG TBEC 1 tablet by mouth three times a day as needed DICLOFENAC SODIUM 12508791860 No Longer Active Fab Morales DO Active TRUEDRAW LANCING DEVICE MISC test blood sugar twice daily dx: 250.00 LANCET DEVICES 21912734897 Active Tu Landeros MD Active TRUETEST TEST INVITR STRP test blood sugar twice daily. DX 250.0 GLUCOSE BLOOD 86094988402 Active Tu Landeros MD Active EMBRACE BLOOD GLUCOSE TEST STRP test blood sugar twice daily DX 250.0 2014 GLUCOSE BLOOD 97761141006 No Longer Active Tu Landeros MD Active TRUETEST TEST STRP test blood sugar three times daily dx: 250.00 GLUCOSE BLOOD 80649772963 No Longer Active Suzebianca Nicole RMMahendra Active TRUERESULT BLOOD GLUCOSE W/DEVICE KIT use to test blood sugar tid dx: 250.00 BLOOD GLUCOSE MONITORING SUPPL 10085830069 No Longer Active Suze Corey RMA Active ALIGN 4 MG CAPS 1 tid PROBIOTIC PRODUCT 72238037941 No Longer Active Shaun Sy MD Active CIPRO 500 MG TABS 1 bid x 14 days start 09-28-13 CIPROFLOXACIN HCL 78163881857 No Longer Active Shaun Sy MD Active TRAMADOL HCL 50 MG TABS 1-2 tablets every 6 hours as needed for pain TRAMADOL HCL 93710113584 Active Tu Landeros MD Active HYDROCODONE-ACETAMINOPHEN 5-325 MG TABS 1 tab by mouth every 6 hours as needed for pain HYDROCODONE-ACETAMINOPHEN 34113091217 No Longer Active Tu Landeros MD Active OMEPRAZOLE 20 MG CPDR 1 po q a.m. OMEPRAZOLE 14917505397 Active Tu Landeros MD Active GABAPENTIN 100 MG CAPS 1 po bid GABAPENTIN 60617560668 No Longer Active Tu Landeros MD Active B-12 100 MCG TABS Take one by mouth daily CYANOCOBALAMIN 50751843444 No Longer Active Tu Landeros MD Active GABAPENTIN 100 MG CAPS by mouth twice a day GABAPENTIN 87923801528 Active Tiffanie Doyle Active BACTRIM DS 800-160 MG TABS 1 bid x 14 day start 09-28-13 SULFAMETHOXAZOLE-TRIMETHOPRIM 65023533443 No Longer Active Tu Landeros MD Active CARVEDILOL 12.5 MG TABS 1 po BID CARVEDILOL 39246056378 Active Kofilaura Fatumashahid PATEL Active SUPER B COMPLEX/VITAMIN C TABS 1 qd B COMPLEX-C 15578393682 Active JASPREET Perez Active TRILIPIX 135 MG CPDR 1 q hs CHOLINE FENOFIBRATE 98911575154 Active Tu Landeros MD Active FENOFIBRATE 145 MG TABS 1 po qd FENOFIBRATE 76875186765 No Longer Active JASPREET Perez Active OMEPRAZOLE 20 MG TBEC 1 PO 30 MIN BEFORE 1ST MEAL OMEPRAZOLE 88659394888 No Longer Active JASPREET Perez Active SIMVASTATIN 40 MG TABS Take one by mouth daily SIMVASTATIN 38983302980 No Longer Active JASPREET Perez Active VENLAFAXINE HCL 37.5 MG TABS 1 bid VENLAFAXINE HCL 43655850242 Active Tu Landeros MD Active VENLAFAXINE HCL 75 MG TABS 1 po BID VENLAFAXINE HCL 56170427702 No Longer Active JASPREET Perez Active CIPRO 500 MG TAB 1 tablet by mouth twice daily CIPROFLOXACIN HCL 72713072822 No Longer Active Tu Landeros MD Active VENLAFAXINE HCL 37.5 MG TABS 1 po BID VENLAFAXINE HCL 74684669624 No Longer Active Suze Corey RMA Active LAMISIL 250 MG TAB 1 po qd TERBINAFINE HCL 66443100415 No Longer Active Tu Landeros MD Active LORTAB 5 5-500 MG TABS 1/2 to 1 tablet by mouth every 4 hours as needed for pain HYDROCODONE-ACETAMINOPHEN 00080691963 No Longer Active Tu Landeros MD Active ENALAPRIL MALEATE 20 MG TABS 1.5 po qd ENALAPRIL MALEATE 65166059750 Active Tu Landeros MD Active HYDROCODONE-ACETAMINOPHEN 5-500 MG TABS take one po Q 4-6 hours prn HYDROCODONE-ACETAMINOPHEN 91470353547 No Longer Active Tu Landeros MD Active BACTRIM DS 800-160 MG TABS 1 po BID x 7 days SULFAMETHOXAZOLE-TRIMETHOPRIM 92189230423 No Longer Active Tu Landeros MD Active VENLAFAXINE HCL 75 MG TABS 1 po BID VENLAFAXINE HCL 74457005719 No Longer Active Elvira Cervantes MD PhD Active TRAMADOL HCL 50 MG TABS 1 tablets every 6 hours as needed for pain TRAMADOL HCL 17629063971 No Longer Active Tu Landeros MD Active ACCU-CHEK FASTCLIX LANCETS MISC Use to check bloodsugar three times daily as needed LANCETS 44045491746 No Longer Active Tu Landeros MD Active ACCU-CHEK KEYONA PLUS STRP Use for testing bloodsugars three times daily as needed GLUCOSE BLOOD 62862474878 No Longer Active Tu Landeros MD Active ACCU-CHEK KEYONA PLUS W/DEVICE KIT Use for testing bloodsugars three times daily as needed BLOOD GLUCOSE MONITORING SUPPL 73950990328 No Longer Active Tu Landeros MD Active SPIRONOLACTONE 25 MG TAB 0.5 tablet by mouth daily SPIRONOLACTONE 41662788060 No Longer Active Tu Landeros MD Active ALPRAZOLAM 0.5 MG TABS 1 tab every 6hrs as needed ALPRAZOLAM 49853575135 No Longer Active Tu Landeros MD Active AUGMENTIN 875-125 MG TAB 1 tab by mouth twice daily with food AMOXICILLIN-POT CLAVULANATE 64891725327 No Longer Active Tu Landeros MD Active PREDNISONE 20 MG TAB 2 tabs daily for 3 days, 1 tab daily for 3 days, 1/2 tab daily for 2 days PREDNISONE 80303218672 No Longer Active Tu Landeros MD Active XANAX 0.5 MG TABS 1 tablet every 6 hrs prn ALPRAZOLAM 47603154012 No Longer Active Tu Landeros MD Active PREDNISONE 20 MG TAB 2 tabs daily for 3 days, 1 tab daily for 3 days, 1/2 tab daily for 2 days PREDNISONE 54426855196 No Longer Active Tu Landeros MD Active TRIAMCINOLONE ACETONIDE 0.1 % OINT Apply to affected areas TID for up to 2 weeks TRIAMCINOLONE ACETONIDE 96400241375 No Longer Active Tu Landeros MD Active LORTAB 5 5-500 MG TABS 1/2 to 1 tablet by mouth every 4 hours as needed for pain HYDROCODONE-ACETAMINOPHEN 50873893727 No Longer Active Tu Landeros MD Active MULTIVITAMINS TABS Take one by mouth daily MULTIPLE VITAMIN 04255743285 No Longer Active Tu Landeros MD Active MELATONIN 5 MG TABS Take one by mouth daily MELATONIN 93327897800 No Longer Active Tu Landeros MD Active SOMA 350 MG TAB 1 po q 6 hours prn spasm CARISOPRODOL 34669028748 No Longer Active Tu Landeros MD Active MECLIZINE HCL 25 MG CHEW TAB 1 four times a day as needed for dizziness 08/05 MECLIZINE HCL 96378892683 No Longer Active Fab Morales DO Active ANGEL BREEZE 2 TEST DISK test tid prn GLUCOSE BLOOD 32458793298 No Longer Active Negra Scott RN Active REGLAN 10 MG TAB 1 po TID PRN [place] METOCLOPRAMIDE HCL 92925451589 No Longer Active Tu Landeros MD Active METFORMIN HCL 500 MG TABS 1 PO BID METFORMIN HCL 86011892255 No Longer Active Tu Landeros MD Active AMBIEN 10 MG TAB 1 tab by mouth at bedtime as needed for sleep ZOLPIDEM TARTRATE 95417564701 No Longer Active Tu Landeros MD Active FLUOXETINE HCL 40 MG CAPS 1 po q day FLUOXETINE HCL 17741210021 No Longer Active Mayra Springdale Active FISH OIL 1000 MG CAPS Take one by mouth daily OMEGA-3 FATTY ACIDS 81968886412 Active Tu Landeros MD Active GLUCOSAMINE 500 MG TABS Take 2 tab po qd GLUCOSAMINE 12208431321 Active Tu Landeros MD Active TRILIPIX 135 MG CPDR 1 po qd CHOLINE FENOFIBRATE 98485306355 No Longer Active Tu Landeros MD Active ASPIRIN 81 MG CHEW TAB 1 tablet by mouth daily ASPIRIN 34984428936 Active Tu Landeros MD Active FUROSEMIDE 40 MG TAB 1 tablet by mouth daily FUROSEMIDE 28017315883 Active Tu Landeros MD Active REQUIP 2 MG TABS Take one tablet at bedtime prn ROPINIROLE HCL 64325333306 Active Tu Landeros MD Active KLOR-CON 10 10 MEQ CR-TABS TAKE 2 TABS DAILY POTASSIUM CHLORIDE 55442775219 Active Tu Landeros MD Active AMBIEN 10 MG TAB 1 tab by mouth at bedtime as needed for sleep AMBIEN 10 MG TAB 271548 ZOLPIDEM TARTRATE Inactive METFORMIN HCL 500 MG TABS 1 PO BID METFORMIN HCL 500 MG TABS 070673 METFORMIN HCL Inactive REGLAN 10 MG TAB 1 po TID PRN Nausea REGLAN 10 MG TAB 473146 METOCLOPRAMIDE HCL Inactive MECLIZINE HCL 25 MG CHEW TAB 1 four times a day as needed for dizziness 08/05 MECLIZINE HCL 25 MG CHEW TAB 346822 MECLIZINE HCL Inactive SOMA 350 MG TAB 1 po q 6 hours prn spasm SOMA 350 MG TAB 949429 CARISOPRODOL Inactive MELATONIN 5 MG TABS Take one by mouth daily MELATONIN 5 MG TABS 168364 MELATONIN Inactive MULTIVITAMINS TABS Take one by mouth daily MULTIVITAMINS TABS MULTIPLE VITAMIN Inactive LORTAB 5 5-500 MG TABS 1/2 to 1 tablet by mouth every 4 hours as needed for pain LORTAB 5 5-500 MG TABS HYDROCODONE- ACETAMINOPHEN Inactive XANAX 0.5 MG TABS 1 tablet every 6 hrs prn XANAX 0.5 MG TABS 149049 ALPRAZOLAM Inactive AUGMENTIN 875-125 MG TAB 1 tab by mouth twice daily with food AUGMENTIN 875-125 MG TAB 129494 AMOXICILLIN-POT CLAVULANATE Inactive ALPRAZOLAM 0.5 MG TABS 1 tab every 6hrs as needed ALPRAZOLAM 0.5 MG TABS 596085 ALPRAZOLAM Inactive SPIRONOLACTONE 25 MG TAB 0.5 tablet by mouth daily SPIRONOLACTONE 25 MG TAB 897251 SPIRONOLACTONE Inactive ACCU-CHEK KEYONA PLUS W/DEVICE KIT Use for testing bloodsugars three times daily as needed ACCU-CHEK KEYONA PLUS W/DEVICE KIT BLOOD GLUCOSE MONITORING SUPPL Inactive ACCU-CHEK KEYONA PLUS STRP Use for testing bloodsugars three times daily as needed ACCU-CHEK KEYONA PLUS STRP GLUCOSE BLOOD Inactive ACCU-CHEK FASTCLIX LANCETS MISC Use to check bloodsugar three times daily as needed ACCU-CHEK FASTCLIX LANCETS MISC 93952884008 LANCETS Inactive TRAMADOL HCL 50 MG TABS 1 tablets every 6 hours as needed for pain TRAMADOL HCL 50 MG TABS 335240 TRAMADOL HCL Inactive VENLAFAXINE HCL 75 MG TABS 1 po BID VENLAFAXINE HCL 75 MG TABS 776598 VENLAFAXINE HCL Inactive HYDROCODONE-ACETAMINOPHEN 5-500 MG TABS take one po Q 4-6 hours prn HYDROCODONE-ACETAMINOPHEN 5-500 MG TABS HYDROCODONE- ACETAMINOPHEN Inactive LORTAB 5 5-500 MG TABS 1/2 to 1 tablet by mouth every 4 hours as needed for pain LORTAB 5 5-500 MG TABS HYDROCODONE- ACETAMINOPHEN Inactive LAMISIL 250 MG TAB 1 po qd LAMISIL 250 MG TAB 935994 TERBINAFINE HCL Inactive VENLAFAXINE HCL 37.5 MG TABS 1 po BID VENLAFAXINE HCL 37.5 MG TABS 049816 VENLAFAXINE HCL Inactive CIPRO 500 MG TAB 1 tablet by mouth twice daily CIPRO 500 MG TAB 193173 CIPROFLOXACIN HCL Inactive VENLAFAXINE HCL 75 MG TABS 1 po BID VENLAFAXINE HCL 75 MG TABS 081513 VENLAFAXINE HCL Inactive SIMVASTATIN 40 MG TABS Take one by mouth daily SIMVASTATIN 40 MG TABS 548831 SIMVASTATIN Inactive OMEPRAZOLE 20 MG TBEC 1 PO 30 MIN BEFORE 1ST MEAL OMEPRAZOLE 20 MG TBEC 876702 OMEPRAZOLE Inactive FENOFIBRATE 145 MG TABS 1 po qd FENOFIBRATE 145 MG TABS 600133 FENOFIBRATE Inactive BACTRIM DS 800-160 MG TABS 1 bid x 14 day start 09-28-13 BACTRIM DS 800-160 MG TABS 309633 SULFAMETHOXAZOLE-TRIMETHOPRIM Inactive B-12 100 MCG TABS Take one by mouth daily B-12 100 MCG TABS CYANOCOBALAMIN Inactive GABAPENTIN 100 MG CAPS 1 po bid GABAPENTIN 100 MG CAPS 266512 GABAPENTIN Inactive HYDROCODONE-ACETAMINOPHEN 5-325 MG TABS 1 tab by mouth every 6 hours as needed for pain HYDROCODONE-ACETAMINOPHEN 5-325 MG TABS 800961 HYDROCODONE-ACETAMINOPHEN Inactive CIPRO 500 MG TABS 1 bid x 14 days start 09-28-13 CIPRO 500 MG TABS 714658 CIPROFLOXACIN HCL Inactive ALIGN 4 MG CAPS [...] as needed DICLOFENAC SODIUM 50 MG TBEC 205711 DICLOFENAC SODIUM Inactive PREDNISONE 20 MG TAB 2 tablets once daily for 2 days, then 1 tablet once daily for 2 days PREDNISONE 20 MG TAB 414597 PREDNISONE Inactive TRUEDRAW LANCING DEVICE MISC Test [...] 2 weeks TRIAMCINOLONE ACETONIDE 0.1 % OINT 6527101 TRIAMCINOLONE ACETONIDE Inactive PREDNISONE 20 MG TAB 2 tabs daily for 3 days, 1 tab daily for 3 days, 1/2 tab daily for 2 days PREDNISONE 20 MG TAB 501452 PREDNISONE Inactive PREDNISONE 20 MG TAB 2 tabs daily for 3 days, 1 tab daily for 3 days, 1/2 tab daily for 2 days PREDNISONE 20 MG TAB 209479 PREDNISONE Inactive BACTRIM DS 800-160 MG TABS 1 po BID x 7 days BACTRIM DS 800-160 MG TABS 587596 SULFAMETHOXAZOLE-TRIMETHOPRIM Inactive ZITHROMAX 250 MG TAB 2 po today, then 1 po q days 2-5 ZITHROMAX 250 MG TAB 4972686 AZITHROMYCIN Inactive Advance Directives Directive Description Start Date DISCUSSED WITH PATIENT -- NO DECISION MADE Immunizations Vaccine Administration Date Value Standard Description Seasonal influenza vaccine, injectable, containing preservative, for > 3 years old (Afluria, FluLaval, Fluzone, Fluvirin, Fluarix, Agriflu(>=18 yo)) Fluzone (>3 yrs.) [REV666] Influenza, seasonal, injectable influenza immunization (Flu Vax) has been administered 02/22/2012 influenza virus vaccine, unspecified formulation Seasonal influenza vaccine, injectable, containing preservative, for > 3 years old (Afluria, FluLaval, Fluzone, Fluvirin, Fluarix, Agriflu(>=18 yo)) Fluzone (>3 yrs.) [[id number]] Influenza, seasonal, injectable Vital Signs Date Name [...] E&M - 3141-9 314 [lb_av] Weight Measured Diagnostic Results Date Name Value Unit Range Description Lab Report: Basic Metabolic Panel, MICROALBUMIN - Chemistry albumin/creatinine ratio, urine < 30 mg/g mg/g{creat} 0-29 sodium, serum 142 mmol/L 178-755 9715/10/08 potassium, serum 4.5 mmol/L 3.5-5.2 chloride, serum [...] Panel - Chemistry cholesterol, serum 124 mg/dL 591-206 1202/01/12 triglyceride, serum, fasting 135 mg/dL 30-200 HDL cholesterol, serum 41 mg/dL 32-96 LDL cholesterol, serum 56 mg/dL 0-130 sodium, serum 140 mmol/L 130-031 4181/01/12 carbon dioxide, venous blood 27.7 mmol/L 21.0-32.0 potassium, serum 4.5 mmol/L 3.5-5.2 chloride, serum 104 mmol/L 98-107 blood glucose 139 mg/dL 65-110 urea nitrogen, blood 16 mg/dL 7-18 alanine aminotransferase (SGPT), serum 32 U/L 12-78 aspartate aminotransferase (SGOT), serum 25 U/L 15-37 calcium, serum 9.1 mg/dL 8.5-10.1 bilirubin, serum, total 0.50 mg/dL 0.00-1.00 Encounters Code Encounter Date Provider Facility CPT-14432 Level 4 Est. 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 Patient 14:05:18 W[employer] WEAVING LOOM SETTER Tu Landeros MD [facility] CPT-94604 Level 3 Est. Patient 10:06:54 W[employer] WE[employer]ING LOOM SETTER Miranda Suresh APRN [facility] CPT-63293 Level 4 Est. 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 Patient 10:30:04 CDT Tu Landeros MD [facility] CPT-37166 Level 4 Est. Patient 11:03:38 CDT Tu Landeros MD [facility] CPT-97037 Level 3 Est. Patient 10:20:44 CDT Fab Morales DO [facility] CPT-91940 Level 4 Est. Patient 14:38:57 CDT Tu Landeros MD [facility] CPT-58865 Level 4 Est. Patient 14:27:39 W[employer] WE[employer]ING LOOM SETTER Tu Landeros MD [facility] CPT-66114 Level 4 Est. Patient 09:45:25 CDT Tu Landeros MD [facility] CPT-33250 Level 4 Est. 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 Patient 14:09:06 CDT Tu Landeros MD [facility] CPT-63290 Level 3 Est. Patient 13:36:54 CDT Tu Landeros MD [facility] CPT-88455 Level 3 Est. Patient 08:59:14 CDT Tu Landeros MD [facility] CPT-23787 Level 3 Est. Patient 13:48:35 CDT Fab Morales DO [facility] CPT-13811 Level 4 Est. Patient 10:05:48 CDT Tu Landeros MD [facility] CPT-14339 Level 3 Est. Patient 13:38:42 CDT Marek BANKS [facility] CPT-36586 Level 5 Est. Patient 08:08:39 CDT Jerrica FRANCIS [facility] CPT-17669 Level 4 Est. Patient 14:23:38 CDT Tu Landeros MD [facility] CPT-56975 Level 3 Est. Patient 11:44:04 CDT Tu Landeros MD [facility] CPT-17018 Level 3 Est. 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 Patient 12:42:49 CDT Tu Landeros MD [facility] CPT-97439 Level 3 Est. Patient 11:52:06 CDT Tu Landeros MD [facility] CPT-51356 Level 3 Est. Patient 13:58:11 CDT Tu Landeros MD [facility] CPT-45468 Level 3 Est. Patient 17:50:07 CDT Fab Morales DO [facility] CPT-67668 Level 3 Est. Patient 12:06:29 CDT Elvira Cervantes MD [facility] CPT-73455 Level 3 Est. Patient 15:50:32 CDT Tu Landeros MD [facility] CPT-27620 Level 4 Est. Patient 16:08:29 CDT Tu Landeros MD [facility] CPT-15482 Level 3 Est. Patient 16:04:19 CDT Tu Landeros MD [facility] CPT-53186 Level 3 Est. Patient 11:22:30 W[employer] WEAVING LOOM SETTER Tu Landeros MD [facility] CPT-04012 Level 4 Est. Patient 16:24:02 WIRE WEAVING LOOM SETTER Tu Landeros MD [facility] CPT-51432 Level 3 Est. Patient 17:21:23 W[employer] WEAVING LOOM SETTER Tu Landeros MD [facility] Procedures Code Procedure Name Date Entry Date Standard Description CPT-G0438 Initial Annual Wellness Exam 14:13:04 CDT CPT-56678 Breathing Tx 10:06:54 [employer]TER CPT-95747 Postop F/U Visit 10:02:45 CDT CPT-LR Lesion Removal 09:02:56 CDT CPT-JTINJ Asp/Joint Injection 15:51:27 W[employer]ING LO[employer]TER CPT-OV Office Visit 15:52:02 W[employer] WE[employer]ING LO[employer]TER CPT-OV Office Visit 15:45:11 CDT CPT-000 Give Zostavax 14:09:06 CDT CPT-35351 Administration single or combination vaccine inc oral 15 :19:04 CDT CPT-10534 Zoster Vaccine (Zostavax) 15:19:04 CDT CPT-76817 Administration single or combination vaccine inc oral 20 :51:03 CDT CPT-67068 Influenza split virus > age 3 20:51:03 CDT CPT-07485 No Charge Offi Visit 14:52:03 CDT CPT-OV Office Visit 14:57:43 CDT CPT-OV Office Visit 15:22:32 CDT CPT-49627 Administration single or combination vaccine inc oral 11 :33:15 CDT CPT-53245 Influenza split virus > age 3 11:33:15 CDT
--- OUTSIDE RECORDS SUMMARY | 2018-04-25 13:29 | XMS REPORT | Clinical Summary ---
Author Author Admin, SACHI Clemons [facility] Address Unknown Phone Unavailable Allergies, Adverse Reactions, [...] TABS 0.5 tab daily at bedtime SIMVASTATIN 07746381709 Active Tu Landeros MD Active TRUERESULT BLOOD GLUCOSE W/DEVICE KIT test blood sugar twice daily dx 250.00 BLOOD GLUCOSE MONITORING SUPPL 54557646759 No Longer Active Tu Landeros MD Active TRUEDRAW LANCING DEVICE MISC Test twice a day dx 250.0 LANCET DEVICES 44042523763 No Longer Active Tu Landeros MD Active PREDNISONE 20 MG TAB 2 tablets once daily for 2 days, then 1 tablet once daily for 2 days PREDNISONE 41772486551 No Longer Active Tu Landeros MD Active FLONASE 50 MCG/ACT SUSP 1 spray each nostril twice daily until bottle empty FLUTICASONE PROPIONATE 99268869099 Active Fab Morales DO Active DICLOFENAC SODIUM 50 MG TBEC 1 tablet by mouth three times a day as needed DICLOFENAC SODIUM 66858277575 No Longer Active Fab Morales DO Active METFORMIN HCL 850 MG TABS 1 tablet by mouth twice daily METFORMIN HCL 86224041904 Active Tu Landeros MD Active TRUEDRAW LANCING DEVICE MISC test blood sugar twice daily dx: 250.00 LANCET DEVICES 44499776987 Active Tu Landeros MD Active TRUETEST TEST INVITR STRP test blood sugar twice daily. DX 250.0 GLUCOSE BLOOD 88441381851 Active Tu Landeros MD Active EMBRACE BLOOD GLUCOSE TEST STRP test blood sugar twice daily DX 250.0 2014 GLUCOSE BLOOD 54975257373 No Longer Active Tu Landeros MD Active TRUETEST TEST STRP test blood sugar three times daily dx: 250.00 GLUCOSE BLOOD 46601988959 No Longer Active Suzebianca Nicole RMA Active TRUERESULT BLOOD GLUCOSE W/DEVICE KIT use to test blood sugar tid dx: 250.00 BLOOD GLUCOSE MONITORING SUPPL 54045037634 No Longer Active Suze Corey RMA Active ALIGN 4 MG CAPS 1 tid PROBIOTIC PRODUCT 60571385112 No Longer Active Shaun Sy MD Active CIPRO 500 MG TABS 1 bid x 14 days start 09-28-13 CIPROFLOXACIN HCL 05709649104 No Longer Active Shaun Sy MD Active TRAMADOL HCL 50 MG TABS 1-2 tablets every 6 hours as needed for pain TRAMADOL HCL 67520866497 Active Tu Landeros MD Active HYDROCODONE-ACETAMINOPHEN 5-325 MG TABS 1 tab by mouth every 6 hours as needed for pain HYDROCODONE-ACETAMINOPHEN 34217605569 No Longer Active Tu Landeros MD Active OMEPRAZOLE 20 MG CPDR 1 po q a.m. OMEPRAZOLE 96620042608 Active Elvira Cervantes MD PhD Active GABAPENTIN 100 MG CAPS 1 po bid GABAPENTIN 36688920110 No Longer Active Tu Landeros MD Active B-12 100 MCG TABS Take one by mouth daily CYANOCOBALAMIN 18475866792 No Longer Active Tu Landeros MD Active GABAPENTIN 100 MG CAPS by mouth twice a day GABAPENTIN 12480731121 Active Tu Landeros MD Active BACTRIM DS 800-160 MG TABS 1 bid x 14 day start 09-28-13 SULFAMETHOXAZOLE-TRIMETHOPRIM 68229635781 No Longer Active Tu Landeros MD Active CARVEDILOL 12.5 MG TABS 1 po BID CARVEDILOL 23972180001 Active Tu Landeros MD Active SUPER B COMPLEX/VITAMIN C TABS 1 qd B COMPLEX-C 30268917668 Active JASPREET Perez Active TRILIPIX 135 MG CPDR 1 q hs CHOLINE FENOFIBRATE 19759945066 Active Tu Landeros MD Active FENOFIBRATE 145 MG TABS 1 po qd FENOFIBRATE 76150748238 No Longer Active JASPREET Perez Active OMEPRAZOLE 20 MG TBEC 1 PO 30 MIN BEFORE 1ST MEAL OMEPRAZOLE 19875561407 No Longer Active JASPREET Perez Active SIMVASTATIN 40 MG TABS Take one by mouth daily SIMVASTATIN 27605309478 No Longer Active JASPREET Perez Active VENLAFAXINE HCL 37.5 MG TABS 1 bid VENLAFAXINE HCL 10369262954 Active Tu Landeros MD Active VENLAFAXINE HCL 75 MG TABS 1 po BID VENLAFAXINE HCL 41648308441 No Longer Active JASPREET Perez Active CIPRO 500 MG TAB 1 tablet by mouth twice daily CIPROFLOXACIN HCL 29291239925 No Longer Active Tu Landeros MD Active VENLAFAXINE HCL 37.5 MG TABS 1 po BID VENLAFAXINE HCL 96264925744 No Longer Active Suze Corey RMA Active CVS STOOL SOFTENER 100 MG CAPS 1 tab daily DOCUSATE SODIUM 78841702310 Active Tu Landeros MD Active LAMISIL 250 MG TAB 1 po qd TERBINAFINE HCL 66284091707 No Longer Active Tu Landeros MD Active LORTAB 5 5-500 MG TABS 1/2 to 1 tablet by mouth every 4 hours as needed for pain HYDROCODONE-ACETAMINOPHEN 57934231139 No Longer Active uT Landeros MD Active ENALAPRIL MALEATE 20 MG TABS 1.5 po qd ENALAPRIL MALEATE 71688610253 Active Tu Landeros MD Active HYDROCODONE-ACETAMINOPHEN 5-500 MG TABS take one po Q 4-6 hours prn HYDROCODONE-ACETAMINOPHEN 77277925511 No Longer Active Tu Landeros MD Active BACTRIM DS 800-160 MG TABS 1 po BID x 7 days SULFAMETHOXAZOLE-TRIMETHOPRIM 76646504813 No Longer Active Tu Landeros MD Active VENLAFAXINE HCL 75 MG TABS 1 po BID VENLAFAXINE HCL 31081957429 No Longer Active Elvira Cervantes MD PhD Active TRAMADOL HCL 50 MG TABS 1 tablets every 6 hours as needed for pain TRAMADOL HCL 72690280929 No Longer Active Tu Landeros MD Active ACCU-CHEK FASTCLIX LANCETS MISC Use to check bloodsugar three times daily as needed LANCETS 71020570652 No Longer Active Tu Landeros MD Active ACCU-CHEK KEYONA PLUS STRP Use for testing bloodsugars three times daily as needed GLUCOSE BLOOD 63580694713 No Longer Active Tu Landeros MD Active ACCU-CHEK KEYONA PLUS W/DEVICE KIT Use for testing bloodsugars three times daily as needed BLOOD GLUCOSE MONITORING SUPPL 03246275373 No Longer Active Tu Landeros MD Active SPIRONOLACTONE 25 MG TAB 0.5 tablet by mouth daily SPIRONOLACTONE 50390690165 No Longer Active Tu Landeros MD Active ALPRAZOLAM 0.5 MG TABS 1 tab every 6hrs as needed ALPRAZOLAM 85941663184 No Longer Active Tu Landeros MD Active AUGMENTIN 875-125 MG TAB 1 tab by mouth twice daily with food AMOXICILLIN-POT CLAVULANATE 89940508308 No Longer Active Tu Landeros MD Active PREDNISONE 20 MG TAB 2 tabs daily for 3 days, 1 tab daily for 3 days, 1/2 tab daily for 2 days PREDNISONE 82082628527 No Longer Active Tu Landeros MD Active XANAX 0.5 MG TABS 1 tablet every 6 hrs prn ALPRAZOLAM 97104650204 No Longer Active Tu Landeros MD Active PREDNISONE 20 MG TAB 2 tabs daily for 3 days, 1 tab daily for 3 days, 1/2 tab daily for 2 days PREDNISONE 71067205506 No Longer Active Tu Landeros MD Active TRIAMCINOLONE ACETONIDE 0.1 % OINT Apply to affected areas TID for up to 2 weeks TRIAMCINOLONE ACETONIDE 00192604435 No Longer Active Tu Landeros MD Active LORTAB 5 5-500 MG TABS 1/2 to 1 tablet by mouth every 4 hours as needed for pain HYDROCODONE-ACETAMINOPHEN 14785147718 No Longer Active Tu Landeros MD Active MULTIVITAMINS TABS Take one by mouth daily MULTIPLE VITAMIN 45300033068 No Longer Active Tu Landeros MD Active MELATONIN 5 MG TABS Take one by mouth daily MELATONIN 63417741496 No Longer Active Tu Landeros MD Active SOMA 350 MG TAB 1 po q 6 hours prn spasm CARISOPRODOL 18178044046 No Longer Active Tu Landeros MD Active MECLIZINE HCL 25 MG CHEW TAB 1 four times a day as needed for dizziness 08/05 MECLIZINE HCL 74981592847 No Longer Active Fab Morales DO Active ANGEL NIKKOEZE 2 TEST DISK test tid prn GLUCOSE BLOOD 48055657729 No Longer Active Negra Scott RN Active REGLAN 10 MG TAB 1 po TID PRN [place]ause[place] METOCLOPRAMIDE HCL 65858151753 No Longer Active Tu Landeros MD Active METFORMIN HCL 500 MG TABS 1 PO BID METFORMIN HCL 75633057371 No Longer Active Tu Landeros MD Active AMBIEN 10 MG TAB 1 tab by mouth at bedtime as needed for sleep ZOLPIDEM TARTRATE 83951934916 No Longer Active Tu Landeros MD Active FLUOXETINE HCL 40 MG CAPS 1 po q day FLUOXETINE HCL 32606532112 No Longer Active Mayra [place] Active FISH OIL 1000 MG CAPS Take one by mouth daily OMEGA-3 FATTY ACIDS 50229637115 Active Tu Landeros MD Active GLUCOSAMINE 500 MG TABS Take 2 tab po qd GLUCOSAMINE 49136395172 Active Tu Landeros MD Active TRILIPIX 135 MG CPDR 1 po qd CHOLINE FENOFIBRATE 22662131771 No Longer Active Tu Landeros MD Active ASPIRIN 81 MG CHEW TAB 1 tablet by mouth daily ASPIRIN 96276789527 Active Tu Landeros MD Active FUROSEMIDE 40 MG TAB 1 tablet by mouth daily FUROSEMIDE 35058060751 Active Tu Landeros MD Active REQUIP 2 MG TABS Take one tablet at bedtime prn ROPINIROLE HCL 48441883218 Active Tu Landeros MD Active KLOR-CON 10 10 MEQ CR-TABS TAKE 2 TABS DAILY POTASSIUM CHLORIDE 33187757185 Active Tu Landeros MD Active AMBIEN 10 MG TAB 1 tab by mouth at bedtime as needed for sleep AMBIEN 10 MG TAB 747910 ZOLPIDEM TARTRATE Inactive METFORMIN HCL 500 MG TABS 1 PO BID METFORMIN HCL 500 MG TABS 243454 METFORMIN HCL Inactive REGLAN 10 MG TAB 1 po TID PRN [place]ausea REGLAN 10 MG TAB 949637 METOCLOPRAMIDE HCL Inactive MECLIZINE HCL 25 MG CHEW TAB 1 four times a day as needed for dizziness 08/05 MECLIZINE HCL 25 MG CHEW TAB 624269 MECLIZINE HCL Inactive SOMA 350 MG TAB 1 po q 6 hours prn spasm SOMA 350 MG TAB 285046 CARISOPRODOL Inactive MELATONIN 5 MG TABS Take one by mouth daily MELATONIN 5 MG TABS 933420 MELATONIN Inactive MULTIVITAMINS TABS Take one by mouth daily MULTIVITAMINS TABS MULTIPLE VITAMIN Inactive LORTAB 5 5-500 MG TABS 1/2 to 1 tablet by mouth every 4 hours as needed for pain LORTAB 5 5-500 MG TABS HYDROCODONE- ACETAMINOPHEN Inactive XANAX 0.5 MG TABS 1 tablet every 6 hrs prn XANAX 0.5 MG TABS 039206 ALPRAZOLAM Inactive AUGMENTIN 875-125 MG TAB 1 tab by mouth twice daily with food AUGMENTIN 875-125 MG TAB 223895 AMOXICILLIN-POT CLAVULANATE Inactive ALPRAZOLAM 0.5 MG TABS 1 tab every 6hrs as needed ALPRAZOLAM 0.5 MG TABS 750578 ALPRAZOLAM Inactive SPIRONOLACTONE 25 MG TAB 0.5 tablet by mouth daily SPIRONOLACTONE 25 MG TAB 887048 SPIRONOLACTONE Inactive ACCU-CHEK KEYONA PLUS W/DEVICE KIT Use for testing bloodsugars three times daily as needed ACCU-CHEK KEYONA PLUS W/DEVICE KIT BLOOD GLUCOSE MONITORING SUPPL Inactive ACCU-CHEK KEYONA PLUS STRP Use for testing bloodsugars three times daily as needed ACCU-CHEK KEYONA PLUS STRP GLUCOSE BLOOD Inactive ACCU-CHEK FASTCLIX LANCETS MISC Use to check bloodsugar three times daily as needed ACCU-CHEK FASTCLIX LANCETS MISC 23190033207 LANCETS Inactive TRAMADOL HCL 50 MG TABS 1 tablets every 6 hours as needed for pain TRAMADOL HCL 50 MG TABS 958605 TRAMADOL HCL Inactive VENLAFAXINE HCL 75 MG TABS 1 po BID VENLAFAXINE HCL 75 MG TABS 502701 VENLAFAXINE HCL Inactive HYDROCODONE-ACETAMINOPHEN 5-500 MG TABS take one po Q 4-6 hours prn HYDROCODONE-ACETAMINOPHEN 5-500 MG TABS HYDROCODONE- ACETAMINOPHEN Inactive LORTAB 5 5-500 MG TABS 1/2 to 1 tablet by mouth every 4 hours as needed for pain LORTAB 5 5-500 MG TABS HYDROCODONE- ACETAMINOPHEN Inactive LAMISIL 250 MG TAB 1 po qd LAMISIL 250 MG TAB 430158 TERBINAFINE HCL Inactive VENLAFAXINE HCL 37.5 MG TABS 1 po BID VENLAFAXINE HCL 37.5 MG TABS 078470 VENLAFAXINE HCL Inactive CIPRO 500 MG TAB 1 tablet by mouth twice daily CIPRO 500 MG TAB 856400 CIPROFLOXACIN HCL Inactive VENLAFAXINE HCL 75 MG TABS 1 po BID VENLAFAXINE HCL 75 MG TABS 405664 VENLAFAXINE HCL Inactive SIMVASTATIN 40 MG TABS Take one by mouth daily SIMVASTATIN 40 MG TABS 414304 SIMVASTATIN Inactive OMEPRAZOLE 20 MG TBEC 1 PO 30 MIN BEFORE 1ST MEAL OMEPRAZOLE 20 MG TBEC 228917 OMEPRAZOLE Inactive FENOFIBRATE 145 MG TABS 1 po qd FENOFIBRATE 145 MG TABS 693203 FENOFIBRATE Inactive BACTRIM DS 800-160 MG TABS 1 bid x 14 day start 09-28-13 BACTRIM DS 800-160 MG TABS SULFAMETHOXAZOLE-TRIMETHOPRIM Inactive B-12 100 MCG TABS Take one by mouth daily B-12 100 MCG TABS CYANOCOBALAMIN Inactive GABAPENTIN 100 MG CAPS 1 po bid GABAPENTIN 100 MG CAPS 980354 GABAPENTIN Inactive HYDROCODONE-ACETAMINOPHEN 5-325 MG TABS 1 tab by mouth every 6 hours as needed for pain HYDROCODONE-ACETAMINOPHEN 5-325 MG TABS 068736 HYDROCODONE-ACETAMINOPHEN Inactive CIPRO 500 MG TABS 1 bid x 14 days start -814 CIPRO 500 MG TABS 823383 CIPROFLOXACIN HCL Inactive ALIGN 4 MG CAPS [...] as needed DICLOFENAC SODIUM 50 MG TBEC 540146 DICLOFENAC SODIUM Inactive PREDNISONE 20 MG TAB 2 tablets once daily for 2 days, then 1 tablet once daily for 2 days PREDNISONE 20 MG TAB 763645 PREDNISONE Inactive TRUEDRAW LANCING DEVICE MISC Test twice a day dx 250.0 TRUEDRAW LANCING DEVICE MISC LANCET DEVICES Inactive TRUERESULT BLOOD GLUCOSE W/DEVICE KIT test blood sugar twice daily dx 250.00 TRUERESULT BLOOD GLUCOSE W/DEVICE KIT BLOOD GLUCOSE MONITORING SUPPL Inactive TRIAMCINOLONE ACETONIDE 0.1 % OINT Apply to affected areas TID for up to 2 weeks TRIAMCINOLONE ACETONIDE 0.1 % OINT 4654541 TRIAMCINOLONE ACETONIDE Inactive PREDNISONE 20 MG TAB 2 tabs daily for 3 days, 1 tab daily for 3 days, 1/2 tab daily for 2 days PREDNISONE 20 MG TAB 058605 PREDNISONE Inactive PREDNISONE 20 MG TAB 2 tabs daily for 3 days, 1 tab daily for 3 days, 1/2 tab daily for 2 days PREDNISONE 20 MG TAB 301664 PREDNISONE Inactive BACTRIM DS 800-160 MG TABS 1 po BID x 7 days BACTRIM DS 800-160 MG TABS SULFAMETHOXAZOLE-TRIMETHOPRIM Inactive Immunizations Vaccine Administration Date Value Standard Description Seasonal influenza vaccine, injectable, containing preservative, for > 3 years old (Afluria, FluLaval, Fluzone, Fluvirin, Fluarix, Agriflu(>=18 yo)) Fluzone (>3 yrs.) [[id number]] Influenza, seasonal, injectable influenza immunization (Flu Vax) has been administered 02/22/2012 influenza virus vaccine, unspecified formulation Seasonal influenza vaccine, injectable, containing preservative, for > 3 years old (Afluria, FluLaval, Fluzone, Fluvirin, Fluarix, Agriflu(>=18 yo)) Fluzone (>3 yrs.) [[id number]] Influenza, seasonal, injectable Vital Signs Date Name [...] CBC - Chemistry sodium, serum 143 mmol/L 917-339 7596/03/10 potassium, serum 4.9 mmol/L 3.5-5.2 chloride, serum [...] 0.30 mg/dL 0.00-1.00 cholesterol, serum 111 mg/dL 383-027 1373/07/28 triglyceride, serum, fasting 177 mg/dL 30-200 HDL [...] mg/dL Encounters Code Encounter Date Provider Facility CPT-61473 Level 4 Est. Patient 11:03:38 CDT Tu Landeros MD [facility] CPT-34256 Level 3 Est. Patient 10:20:44 CDT Fab Morales DO [facility] CPT-68308 Level 4 Est. Patient 14:38:57 CDT Tu Landeros MD [facility] CPT-06662 Level 4 Est. 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 Patient 09:45:25 CDT Tu Landeros MD [facility] CPT-93521 Level 4 Est. 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 CPT-92493 Level 4 Est. Patient 14:09:06 CDT Tu Landeros MD [facility] CPT-47949 Level 3 Est. Patient 13:36:54 CDT Tu Landeors MD [facility] CPT-88919 Level 3 Est. Patient 08:59:14 CDT Tu Landeros MD [facility] CPT-02591 Level 3 Est. Patient 13:48:35 CDT Fab Morales DO [facility] CPT-91696 Level 4 Est. Patient 10:05:48 CDT Tu Landeros MD [facility] CPT-96990 Level 3 Est. Patient 13:38:42 CDT Marek BANKS [facility] CPT-60588 Level 5 Est. Patient 08:08:39 CDT Jerrica FRANCIS [facility] CPT-14394 Level 4 Est. Patient 14:23:38 CDT Tu Landeros MD [facility] CPT-95694 Level 3 Est. Patient 11:44:04 CDT Tu Landeros MD [facility] CPT-67330 Level 3 Est. 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 Patient 12:42:49 CDT Tu Landeros MD [facility] CPT-62805 Level 3 Est. Patient 11:52:06 CDT Tu Landeros MD [facility] CPT-14912 Level 3 Est. Patient 13:58:11 CDT Tu Landeros MD [facility] CPT-63772 Level 3 Est. Patient 17:50:07 CDT Fab Morales DO [facility] CPT-67830 Level 3 Est. Patient 12:06:29 CDT Elvira Cervantes MD PhD [facility] CPT-53897 Level 3 Est. Patient 15:50:32 CDT Tu Landeros MD [facility] CPT-89244 Level 4 Est. Patient 16:08:29 CDT Tu Landeros MD [facility] CPT-67435 Level 3 Est. Patient 16:04:19 CDT Tu Landeros MD [facility] CPT-77455 Level 3 Est. 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
[2018-04-25] MEDS ORDERED: FLU QUADRIvalent (5+ YOA) 2018-2019 (AFLURIA) 0.5 ML IM ONE ×2 (13:30→16:38)
--- OUTSIDE RECORDS SUMMARY | 2018-04-25 13:30 | XMS REPORT | Clinical Summary ---
Author Author Admin, SACHI Organization [facility] Address Unknown Phone Unavailable Allergies, Adverse Reactions, [...] MD PhD HEALTH SCREENING ICD-V70.0 Inactive Elvira Ceravntes MD PhD 2011 INSOMNIA, PERSISTENT ICD-307.42 Inactive [...] 100 MG CAPS 1 po TID GABAPENTIN 45213367441 Active Tu Landeros MD Active DICLOFENAC SODIUM 50 MG ORAL TBEC 1 po BID PRN Pain DICLOFENAC SODIUM 84329168137 No Longer Active Tu Landeros MD Active CYCLOBENZAPRINE HCL 10 MG ORAL TABS 1 po TID PRN Muscle Spasm CYCLOBENZAPRINE HCL 88104297703 No Longer Active Tu Landeros MD Active INVOKANA 100 MG ORAL TABS 1 po qd CANAGLIFLOZIN 56868837424 Active Tu Landeros MD Active GLIPIZIDE 5 MG ORAL TABS 1 po qd GLIPIZIDE 53660910069 No Longer Active Tu Landeros MD Active VENLAFAXINE HCL 75 MG ORAL TABS 1 po BID VENLAFAXINE HCL 92361158717 Active Tu Landeros MD Active GLIMEPIRIDE 1 MG ORAL TABS 1 po qd GLIMEPIRIDE 72984334924 No Longer Active Tu Landeros MD Active TRUE METRIX BLOOD GLUCOSE TEST INVITR STRP Test blood sugar BID Dx: E11.9 GLUCOSE BLOOD 50499159635 Active Tu Landeros MD Active TRUE METRIX AIR GLUCOSE METER W/DEVICE KIT Test blood glucose BID Dx: E11.9 BLOOD GLUCOSE MONITORING SUPPL 86773321697 Active Tu Landeros MD Active TRUETEST TEST INVITR STRP test blood sugar twice daily. DX 250.0 GLUCOSE BLOOD 66395243319 No Longer Active Mirna Stanley LPN Active TRUEDRAW LANCING DEVICE MISC test blood sugar twice daily dx: 250.00 LANCET DEVICES 01436744097 No Longer Active Mirna Stanley LPN Active ENALAPRIL MALEATE 20 MG TABS 2 po qd ENALAPRIL MALEATE 23928609318 Active Lesli Kellogg APRN Active SUPER B COMPLEX/VITAMIN C TABS 1 qd B COMPLEX-C 15641244743 No Longer Active Tu Landeros MD Active ASPIRIN EC 81 MG ORAL TBEC 1 po qd ASPIRIN 42821195119 Active Tu Landeros MD Active GLUCOSAMINE 500 MG TABS 2 po qd GLUCOSAMINE Active Tu Landeros MD Active SIMVASTATIN 40 MG TABS 0.5 po qHS SIMVASTATIN 11603645174 Active Tu Landeros MD Active FISH OIL 1000 MG CAPS 1 po qd OMEGA-3 FATTY ACIDS 67271055912 Active Tu Landeros MD Active METFORMIN HCL 1000 MG TABS 1 po BID METFORMIN HCL 86139602091 Active Tu Landeros MD Active KLOR-CON 10 10 MEQ CR-TABS 2 po qd POTASSIUM CHLORIDE 82199680291 Active Tu Landeros MD Active FUROSEMIDE 40 MG TAB 1 po qd FUROSEMIDE 53286549434 Active Tu Landeros MD Active REQUIP 2 MG ORAL TABS 1 po qHS PRN Restless legs ROPINIROLE HCL 47654945910 Active Tu Landeros MD Active REQUIP 2 MG TABS Take one tablet at bedtime prn ROPINIROLE HCL 88486309414 No Longer Active Tu Landeros MD Active VENTOLIN HFA 108 (90 BASE) MCG/ACT AERS 1-2 puffs every 4 hours if needed for cough/congestion ALBUTEROL SULFATE 23413429572 No Longer Active Ambika Aden APRN Active ZITHROMAX 250 MG TAB 2 po today, then 1 po q days 2-5 AZITHROMYCIN 92404139055 No Longer Active Miranda Suresh APRN Active FLONASE 50 MCG/ACT SUSP 1 spray each nostril twice daily until bottle empty FLUTICASONE PROPIONATE 61584962883 No Longer Active Tu Landeros MD Active COLACE 100 MG CAP 1 po BID PRN Constipation DOCUSATE SODIUM 93725864380 Active Tu Landeros MD Active TRUERESULT BLOOD GLUCOSE W/DEVICE KIT test blood sugar twice daily dx 250.00 BLOOD GLUCOSE MONITORING SUPPL 97983548006 No Longer Active Tu Landeros MD Active TRUEDRAW LANCING DEVICE MISC Test twice a day dx 250.0 LANCET DEVICES 96996290505 No Longer Active Tu Landeros MD Active PREDNISONE 20 MG TAB 2 tablets once daily for 2 days, then 1 tablet once daily for 2 days PREDNISONE 71771294395 No Longer Active Tu Landeros MD Active DICLOFENAC SODIUM 50 MG TBEC 1 tablet by mouth three times a day as needed DICLOFENAC SODIUM 25202972624 No Longer Active Fab Morales DO Active EMBRACE BLOOD GLUCOSE TEST STRP test blood sugar twice daily DX 250.0 2014 GLUCOSE BLOOD 68667409476 No Longer Active Tu Landeros MD Active TRUETEST TEST STRP test blood sugar three times daily dx: 250.00 GLUCOSE BLOOD 01539252742 No Longer Active Suze Corey RMA Active TRUERESULT BLOOD GLUCOSE W/DEVICE KIT use to test blood sugar tid dx: 250.00 BLOOD GLUCOSE MONITORING SUPPL 59155054361 No Longer Active Suze Corye RMA Active ALIGN 4 MG CAPS 1 tid PROBIOTIC PRODUCT 66800521858 No Longer Active Shaun Sy MD Active CIPRO 500 MG TABS 1 bid x 14 days start 09-28-13 CIPROFLOXACIN HCL 32746890402 No Longer Active Shaun Sy MD Active TRAMADOL HCL 50 MG TABS 1-2 tablets every 6 hours as needed for pain TRAMADOL HCL 33342652672 Active Tu Landeros MD Active HYDROCODONE-ACETAMINOPHEN 5-325 MG TABS 1 tab by mouth every 6 hours as needed for pain HYDROCODONE-ACETAMINOPHEN 72761302198 No Longer Active Tu Landeros MD Active OMEPRAZOLE 20 MG CPDR 1 po q a.m. OMEPRAZOLE 24510289486 Active Fab Morales DO Active GABAPENTIN 100 MG CAPS 1 po bid GABAPENTIN 56050089200 No Longer Active Tu Landeros MD Active B-12 100 MCG TABS Take one by mouth daily CYANOCOBALAMIN 20391820148 No Longer Active Tu Landeros MD Active BACTRIM DS 800-160 MG TABS 1 bid x 14 day start 09-28-13 SULFAMETHOXAZOLE-TRIMETHOPRIM 11884689829 No Longer Active Tu Landeros MD Active CARVEDILOL 12.5 MG TABS 1 po BID CARVEDILOL 00323258666 Active Lesli Kellogg APRN Active TRILIPIX 135 MG CPDR 1 q hs CHOLINE FENOFIBRATE 73330687211 Active Tu Landeros MD Active FENOFIBRATE 145 MG TABS 1 po qd FENOFIBRATE 30567202355 No Longer Active JASPREET Perez Active OMEPRAZOLE 20 MG TBEC 1 PO 30 MIN BEFORE 1ST MEAL OMEPRAZOLE 20403983598 No Longer Active JASPREET Perez Active SIMVASTATIN 40 MG TABS Take one by mouth daily SIMVASTATIN 17675225275 No Longer Active JASPREET Perez Active VENLAFAXINE HCL 75 MG TABS 1 po BID VENLAFAXINE HCL 23643356954 No Longer Active JASPREET Perez Active CIPRO 500 MG TAB 1 tablet by mouth twice daily CIPROFLOXACIN HCL 22613692365 No Longer Active Tu Landeros MD Active VENLAFAXINE HCL 37.5 MG TABS 1 po BID VENLAFAXINE HCL 52783226536 No Longer Active Suzecandido Nicole RMA Active LAMISIL 250 MG TAB 1 po qd TERBINAFINE HCL 78908070867 No Longer Active Tu Landeros MD Active LORTAB 5 5-500 MG TABS 1/2 to 1 tablet by mouth every 4 hours as needed for pain HYDROCODONE-ACETAMINOPHEN 24937045857 No Longer Active Tu Landeros MD Active HYDROCODONE-ACETAMINOPHEN 5-500 MG TABS take one po Q 4-6 hours prn HYDROCODONE-ACETAMINOPHEN 46035431130 No Longer Active Tu Landeros MD Active BACTRIM DS 800-160 MG TABS 1 po BID x 7 days SULFAMETHOXAZOLE-TRIMETHOPRIM 89732099587 No Longer Active Tu Landeros MD Active VENLAFAXINE HCL 75 MG TABS 1 po BID VENLAFAXINE HCL 35814199110 No Longer Active Elvira Cervantes MD PhD Active TRAMADOL HCL 50 MG TABS 1 tablets every 6 hours as needed for pain TRAMADOL HCL 02731913400 No Longer Active Tu Landeros MD Active ACCU-CHEK FASTCLIX LANCETS MISC Use to check bloodsugar three times daily as needed LANCETS 06909326837 No Longer Active Tu Landeros MD Active ACCU-CHEK KEYONA PLUS STRP Use for testing bloodsugars three times daily as needed GLUCOSE BLOOD 14285736841 No Longer Active Tu Landeros MD Active ACCU-CHEK KEYONA PLUS W/DEVICE KIT Use for testing bloodsugars three times daily as needed BLOOD GLUCOSE MONITORING SUPPL 20426155215 No Longer Active Tu Landeros MD Active SPIRONOLACTONE 25 MG TAB 0.5 tablet by mouth daily SPIRONOLACTONE 88030829894 No Longer Active Tu Landeros MD Active ALPRAZOLAM 0.5 MG TABS 1 tab every 6hrs as needed ALPRAZOLAM 65776747867 No Longer Active Tu Landeros MD Active AUGMENTIN 875-125 MG TAB 1 tab by mouth twice daily with food AMOXICILLIN-POT CLAVULANATE 24192273782 No Longer Active Tu Landeros MD Active PREDNISONE 20 MG TAB 2 tabs daily for 3 days, 1 tab daily for 3 days, 1/2 tab daily for 2 days PREDNISONE 03894452031 No Longer Active Tu Landeros MD Active XANAX 0.5 MG TABS 1 tablet every 6 hrs prn ALPRAZOLAM 83148399425 No Longer Active Tu Landeros MD Active PREDNISONE 20 MG TAB 2 tabs daily for 3 days, 1 tab daily for 3 days, 1/2 tab daily for 2 days PREDNISONE 69185644678 No Longer Active Tu Landeros MD Active TRIAMCINOLONE ACETONIDE 0.1 % OINT Apply to affected areas TID for up to 2 weeks TRIAMCINOLONE ACETONIDE 75424073292 No Longer Active Tu Landeros MD Active LORTAB 5 5-500 MG TABS 1/2 to 1 tablet by mouth every 4 hours as needed for pain HYDROCODONE-ACETAMINOPHEN 09012263645 No Longer Active Tu Landeros MD Active MULTIVITAMINS TABS Take one by mouth daily MULTIPLE VITAMIN 85684354258 No Longer Active Tu Landeros MD Active MELATONIN 5 MG TABS Take one by mouth daily MELATONIN 26436541972 No Longer Active Tu Landeros MD Active SOMA 350 MG TAB 1 po q 6 hours prn spasm CARISOPRODOL 85003946639 No Longer Active Tu Landeros MD Active MECLIZINE HCL 25 MG CHEW TAB 1 four times a day as needed for dizziness 08/05 MECLIZINE HCL 53169920549 No Longer Active Fab Morales DO Active ANGEL BREEZE 2 TEST DISK test tid prn GLUCOSE BLOOD 68390754265 No Longer Active Negra Scott RN Active REGLAN 10 MG TAB 1 po TID PRN Nausea METOCLOPRAMIDE HCL 80965177927 No Longer Active uT Landeros MD Active METFORMIN HCL 500 MG TABS 1 PO BID METFORMIN HCL 88364712399 No Longer Active Tu Landeros MD Active AMBIEN 10 MG TAB 1 tab by mouth at bedtime as needed for sleep ZOLPIDEM TARTRATE 50387136838 No Longer Active Tu Landeros MD Active FLUOXETINE HCL 40 MG CAPS 1 po q day FLUOXETINE HCL 73488652018 No Longer Active Mayra Elco Active TRILIPIX 135 MG CPDR 1 po qd CHOLINE FENOFIBRATE 53433683785 No Longer Active Tu Landeros MD Active AMBIEN 10 MG TAB 1 tab by mouth at bedtime as needed for sleep AMBIEN 10 MG TAB 198537 ZOLPIDEM TARTRATE Inactive METFORMIN HCL 500 MG TABS 1 PO BID METFORMIN HCL 500 MG TABS 923746 METFORMIN HCL Inactive REGLAN 10 MG TAB 1 po TID PRN Nausea REGLAN 10 MG TAB 709746 METOCLOPRAMIDE HCL Inactive MECLIZINE HCL 25 MG CHEW TAB 1 four times a day as needed for dizziness 08/05 MECLIZINE HCL 25 MG CHEW TAB 532711 MECLIZINE HCL Inactive SOMA 350 MG TAB 1 po q 6 hours prn spasm SOMA 350 MG TAB 792229 CARISOPRODOL Inactive MELATONIN 5 MG TABS Take one by mouth daily MELATONIN 5 MG TABS 677545 MELATONIN Inactive MULTIVITAMINS TABS Take one by mouth daily MULTIVITAMINS TABS MULTIPLE VITAMIN Inactive LORTAB 5 5-500 MG TABS 1/2 to 1 tablet by mouth every 4 hours as needed for pain LORTAB 5 5-500 MG TABS 355932 HYDROCODONE- ACETAMINOPHEN Inactive XANAX 0.5 MG TABS 1 tablet every 6 hrs prn XANAX 0.5 MG TABS 056244 ALPRAZOLAM Inactive AUGMENTIN 875-125 MG TAB 1 tab by mouth twice daily with food AUGMENTIN 875-125 MG TAB 232661 AMOXICILLIN-POT CLAVULANATE Inactive ALPRAZOLAM 0.5 MG TABS 1 tab every 6hrs as needed ALPRAZOLAM 0.5 MG TABS 859753 ALPRAZOLAM Inactive SPIRONOLACTONE 25 MG TAB 0.5 tablet by mouth daily SPIRONOLACTONE 25 MG TAB 407760 SPIRONOLACTONE Inactive ACCU-CHEK KEYONA PLUS W/DEVICE KIT Use for testing bloodsugars three times daily as needed ACCU-CHEK KEYONA PLUS W/DEVICE KIT BLOOD GLUCOSE MONITORING SUPPL Inactive ACCU-CHEK KEYONA PLUS STRP Use for testing bloodsugars three times daily as needed ACCU-CHEK KEYONA PLUS STRP GLUCOSE BLOOD Inactive ACCU-CHEK FASTCLIX LANCETS MISC Use to check bloodsugar three times daily as needed ACCU-CHEK FASTCLIX LANCETS MISC 16523260979 LANCETS Inactive TRAMADOL HCL 50 MG TABS 1 tablets every 6 hours as needed for pain TRAMADOL HCL 50 MG TABS 781712 TRAMADOL HCL Inactive VENLAFAXINE HCL 75 MG TABS 1 po BID VENLAFAXINE HCL 75 MG TABS 598175 VENLAFAXINE HCL Inactive HYDROCODONE-ACETAMINOPHEN 5-500 MG TABS take one po Q 4-6 hours prn HYDROCODONE-ACETAMINOPHEN 5-500 MG TABS 753772 HYDROCODONE- ACETAMINOPHEN Inactive LORTAB 5 5-500 MG TABS 1/2 to 1 tablet by mouth every 4 hours as needed for pain LORTAB 5 5-500 MG TABS 962318 HYDROCODONE- ACETAMINOPHEN Inactive LAMISIL 250 MG TAB 1 po qd LAMISIL 250 MG TAB 095510 TERBINAFINE HCL Inactive VENLAFAXINE HCL 37.5 MG TABS 1 po BID VENLAFAXINE HCL 37.5 MG TABS 532971 VENLAFAXINE HCL Inactive CIPRO 500 MG TAB 1 tablet by mouth twice daily CIPRO 500 MG TAB 531628 CIPROFLOXACIN HCL Inactive VENLAFAXINE HCL 75 MG TABS 1 po BID VENLAFAXINE HCL 75 MG TABS 512306 VENLAFAXINE HCL Inactive SIMVASTATIN 40 MG TABS Take one by mouth daily SIMVASTATIN 40 MG TABS 922578 SIMVASTATIN Inactive OMEPRAZOLE 20 MG TBEC 1 PO 30 MIN BEFORE 1ST MEAL OMEPRAZOLE 20 MG TBEC 819979 OMEPRAZOLE Inactive FENOFIBRATE 145 MG TABS 1 po qd FENOFIBRATE 145 MG TABS 832356 FENOFIBRATE Inactive BACTRIM DS 800-160 MG TABS 1 bid x 14 day start 09-28-13 BACTRIM DS 800-160 MG TABS 660017 SULFAMETHOXAZOLE-TRIMETHOPRIM Inactive B-12 100 MCG TABS Take one by mouth daily B-12 100 MCG TABS CYANOCOBALAMIN Inactive GABAPENTIN 100 MG CAPS 1 po bid GABAPENTIN 100 MG CAPS 144758 GABAPENTIN Inactive HYDROCODONE-ACETAMINOPHEN 5-325 MG TABS 1 tab by mouth every 6 hours as needed for pain HYDROCODONE-ACETAMINOPHEN 5-325 MG TABS 588460 HYDROCODONE-ACETAMINOPHEN Inactive CIPRO 500 MG TABS 1 bid x 14 days start 09-28-13 CIPRO 500 MG TABS 697083 CIPROFLOXACIN HCL Inactive ALIGN 4 MG CAPS [...] as needed DICLOFENAC SODIUM 50 MG TBEC 161494 DICLOFENAC SODIUM Inactive PREDNISONE 20 MG TAB 2 tablets once daily for 2 days, then 1 tablet once daily for 2 days PREDNISONE 20 MG TAB 920007 PREDNISONE Inactive TRUEDRAW LANCING DEVICE MISC Test twice a day dx 250.0 TRUEDRAW LANCING DEVICE MISC LANCET DEVICES Inactive TRUERESULT BLOOD GLUCOSE W/DEVICE KIT test blood sugar twice daily dx 250.00 TRUERESULT BLOOD GLUCOSE W/DEVICE KIT BLOOD GLUCOSE MONITORING SUPPL Inactive FLONASE 50 MCG/ACT SUSP 1 spray each nostril twice daily until bottle empty FLONASE 50 MCG/ACT SUSP 2760229 FLUTICASONE PROPIONATE Inactive VENTOLIN HFA 108 (90 BASE) MCG/ACT AERS 1-2 puffs every 4 hours if needed for cough/congestion VENTOLIN HFA 108 (90 BASE) MCG/ACT AERS ALBUTEROL SULFATE Inactive REQUIP 2 MG TABS Take one tablet at bedtime prn REQUIP 2 MG TABS 684638 ROPINIROLE HCL Inactive SUPER B COMPLEX/VITAMIN C TABS 1 qd SUPER B COMPLEX/ VITAMIN C TABS 63665560418 B COMPLEX-C Inactive TRUEDRAW LANCING DEVICE MISC test blood sugar twice daily dx: 250.00 TRUEDRAW LANCING DEVICE MISC LANCET DEVICES Inactive TRUETEST TEST INVITR STRP test blood sugar twice daily. DX 250.0 TRUETEST TEST INVITR STRP GLUCOSE BLOOD Inactive CYCLOBENZAPRINE HCL 10 MG ORAL TABS 1 po TID PRN Muscle Spasm CYCLOBENZAPRINE HCL 10 MG ORAL TABS 667357 CYCLOBENZAPRINE HCL Inactive DICLOFENAC SODIUM 50 MG ORAL TBEC 1 po BID PRN Pain DICLOFENAC SODIUM 50 MG ORAL TBEC 102068 DICLOFENAC SODIUM Inactive TRIAMCINOLONE ACETONIDE 0.1 % OINT Apply to affected areas TID for up to 2 weeks TRIAMCINOLONE ACETONIDE 0.1 % OINT 5709427 TRIAMCINOLONE ACETONIDE Inactive PREDNISONE 20 MG TAB 2 tabs daily for 3 days, 1 tab daily for 3 days, 1/2 tab daily for 2 days PREDNISONE 20 MG TAB 982007 PREDNISONE Inactive PREDNISONE 20 MG TAB 2 tabs daily for 3 days, 1 tab daily for 3 days, 1/2 tab daily for 2 days PREDNISONE 20 MG TAB 862070 PREDNISONE Inactive BACTRIM DS 800-160 MG TABS 1 po BID x 7 days BACTRIM DS 800-160 MG TABS 999580 SULFAMETHOXAZOLE-TRIMETHOPRIM Inactive ZITHROMAX 250 MG TAB 2 po today, then 1 po q days 2-5 ZITHROMAX 250 MG TAB 247126 AZITHROMYCIN Inactive Advance Directives Directive Description Start Date DISCUSSED WITH PATIENT -- NO DECISION MADE Immunizations Vaccine Administration Date Value Standard Description Seasonal influenza vaccine, injectable, containing preservative, for > 3 years old (Afluria, FluLaval, Fluzone, Fluvirin, Fluarix, Agriflu(>=18 yo)) Fluzone (>3 yrs.) [[id number]] Influenza, seasonal, injectable influenza immunization (Flu Vax) has been administered 02/22/2012 influenza virus vaccine, unspecified formulation Seasonal influenza vaccine, injectable, containing preservative, for > 3 years old (Afluria, FluLaval, Fluzone, Fluvirin, Fluarix, Agriflu(>=18 yo)) Fluzone (>3 yrs.) [[id number]] Influenza, seasonal, injectable Vital Signs Date Name [...] Magnesium - Chemistry sodium, serum 143 mmol/L 852-544 7726/01/10 carbon dioxide, venous blood 28.0 mmol/L 21.0-32.0 potassium, serum 4.5 mmol/L 3.5-5.2 chloride, serum 104 mmol/L 98-107 blood glucose 158 mg/dL 65-110 urea nitrogen, blood 23 mg/dL 7-18 creatinine, serum 1.06 mg/dL 0.55-1.30 alanine aminotransferase (SGPT), serum 42 U/L 12-78 aspartate aminotransferase (SGOT), serum 32 U/L 15-37 calcium, serum 9.3 mg/dL 8.5-10.1 bilirubin, serum, total 0.20 mg/dL 0.00-1.00 cholesterol, serum 177 mg/dL 277-681 2603/01/10 triglyceride, serum, fasting 320 mg/dL 30-200 HDL cholesterol, serum 46 mg/dL 32-96 LDL cholesterol, serum 67 mg/dL 0-130 Lab Report: COMPREHENSIVE METABOLIC PANEL, LIPID PANEL, HEMOGLOBIN A1c - Chemistry cholesterol, serum 135 mg/dL 015-744 5327/05/17 HDL cholesterol, serum 41 mg/dL > OR=46 [...] <30 Encounters Code Encounter Date Provider Facility CPT-78556 Level 4 Est. Patient 14:28:34 CDT Tu Landeros MD [facility] CPT-04274 Level 3 Est. Patient 13:33:09 CDT Tu Landeros MD [facility] CPT-26030 Level 4 Est. Patient 14:29:21 CDT Tu Landeros MD [facility] CPT-10236 Level 4 Est. Patient 09:08:17 TOOLROOM CLERK Tu Landeros MD [facility] CPT-89836 Level 4 Est. Patient 14:40:19 CDT Tu Landeros MD [facility] CPT-88021 Level 4 Est. Patient 14:06:04 TOOLROOM CLERK Tu Landeros MD [facility] CPT-38880 Level 3 Est. Patient 14:05:18 TOOLROOM CLERK Tu Landeros MD [facility] CPT-87028 Level 3 Est. Patient 10:06:54 TOOLROOM CLERK [facility] 4 Est. Patient 13:50:18 TOOLROOM CLERK Tu Landeros MD [facility] CPT-89172 Level 3 Est. Patient 10:30:04 CDT Tu Landeros MD [facility] CPT-01908 Level 4 Est. Patient 11:03:38 CDT Tu Landeros MD [facility] CPT-45854 Level 3 Est. Patient 10:20:44 CDT Fab Morales DO [facility] CPT-66624 Level 4 Est. Patient 14:38:57 CDT Tu Landeros MD [facility] CPT-69450 Level 4 Est. Patient 14:27:39 TOOLROOM CLERK Tu Landeros MD [facility] CPT-10419 Level 4 Est. Patient 09:45:25 CDT Tu Landeros MD [facility] CPT-67446 Level 4 Est. Patient 09:05:20 TOOLROOM CLERK Tu Landeros MD [facility] CPT-51995 Level 4 Est. Patient 14:09:06 CDT Tu Landeros MD [facility] CPT-52970 Level 3 Est. Patient 13:36:54 CDT Tu Landeros MD [facility] CPT-81396 Level 3 Est. Patient 08:59:14 CDT Tu Landeros MD [facility] CPT-82833 Level 3 Est. Patient 13:48:35 CDT Fab Morales DO [facility] CPT-67423 Level 4 Est. Patient 10:05:48 CDT Tu Landeros MD [facility] CPT-50344 Level 3 Est. Patient 13:38:42 CDT Marek BANKS [facility] CPT-83232 Level 5 Est. Patient 08:08:39 CDT Jerrica FRANCIS [facility] CPT-61637 Level 4 Est. Patient 14:23:38 CDT Tu Landeros MD [facility] CPT-36564 Level 3 Est. Patient 11:44:04 CDT Tu Landeros MD [facility] CPT-85422 Level 3 Est. Patient 11:03:20 TOOLROOM CLERK Tu Landeros MD [facility] CPT-16490 Level 3 Est. Patient 11:03:14 TOOLROOM CLERK Tu Landeros MD [facility] CPT-10342 Level 3 Est. Patient 12:42:49 CDT Tu Landeros MD [facility] CPT-70332 Level 3 Est. Patient 11:52:06 CDT Tu Landeros MD [facility] CPT-73825 Level 3 Est. Patient 13:58:11 CDT Tu Landeros MD [facility] CPT-10102 Level 3 Est. Patient 17:50:07 CDT Fab Morales DO [facility] CPT-25494 Level 3 Est. Patient 12:06:29 CDT Elvira Cervantes MD [facility] CPT-83103 Level 3 Est. Patient 15:50:32 CDT Tu Landeros MD [facility] CPT-23049 Level 4 Est. Patient 16:08:29 CDT Tu Landeros MD [facility] CPT-12954 Level 3 Est. Patient 16:04:19 CDT Tu Landeros MD [facility] CPT-07626 Level 3 Est. Patient 11:22:30 TOOLROOM CLERK Tu Landerso MD [facility] CPT-31480 Level 4 Est. Patient 16:24:02 TOOLROOM CLERK Tu Landeros MD [facility] CPT-74812 Level 3 Est. Patient 17:21:23 TOOLROOM CLERK Tu Landeros MD [facility] Procedures Code Procedure Name Date Entry Date Standard Description CPT-54417 Shoulder, right, comp min 2V - XRAY USE ONLY 13:50:22 CDT CPT-G0009 Administration of Pneumococcal Vaccine 15:08:26 CDT CPT-23310 Prevnar 13 Intramuscular Suspension 15:08:26 CDT 10/08 CPT-G0439 [facility] Annual Wellness Exam 14:29:22 CDT CPT-58452 Venipuncture Draw Fee 13:15:35 CDT CPT-53583 Magnesium - LAB USE ONLY 11:14:20 TOOLROOM CLERK CPT-00559 Lipid - LAB USE ONLY 11:14:20 TOOLROOM CLERK CPT-52232 HGBA1C - LAB USE ONLY 11:14:20 TOOLROOM CLERK CPT-87486 CMP - LAB USE ONLY 11:14:19 TOOLROOM CLERK CPT-93232 CBC - LAB USE ONLY 11:14:19 TOOLROOM CLERK CPT-70257 Venipuncture Draw Fee 11:14:18 TOOLROOM CLERK CPT-17391 First Vx - Ix admin for Medicare patients 16:46:52 CDT CPT-72127 Fluzone Preservative Free Intramuscular Suspension 16:46 :51 CDT CPT-84688 CBC - LAB USE ONLY 17:14:46 CDT CPT-87849 HGBA1C - LAB USE ONLY 17:14:46 CDT CPT-11453 Venipuncture Draw Fee 17:14:46 CDT CPT-G0438 Initial Annual Wellness Exam 14:13:04 CDT CPT-02053 Breathing Tx 10:06:54 TOOLROOM CLERK CPT-19795 Postop F/U Visit 10:02:45 CDT CPT-LR Lesion Removal 09:02:56 CDT CPT-JTINJ Asp/Joint Injection 15:51:27 TOOLROOM CLERK CPT-OV Office Visit 15:52:02 TOOLROOM CLERK CPT-OV Office Visit 15:45:11 CDT CPT-000 Give Zostavax 14:09:06 CDT CPT-51562 Administration single or combination vaccine inc oral 15 :19:04 CDT CPT-54029 Zoster Vaccine (Zostavax) 15:19:04 CDT CPT-65439 Administration single or combination vaccine inc oral 20 :51:03 CDT CPT-71109 Influenza split virus > age 3 20:51:03 CDT CPT-14562 No Charge Offi Visit 14:52:03 CDT CPT-OV Office Visit 14:57:43 CDT CPT-OV Office Visit 15:22:32 CDT CPT-70730 Administration single or combination vaccine inc oral 11 :33:15 CDT CPT-91375 Influenza split virus > age 3 11:33:15 CDT
--- OUTSIDE RECORDS SUMMARY | 2018-04-25 13:31 | XMS REPORT | Clinical Summary ---
Author Author Admin, SACHI Organization [employer] Address Unknown Phone Unavailable Allergies, Adverse Reactions, [...] and fatigue CARPAL TUNNEL SYNDROME 354.0 Resolved uT Landeros MD Carpal tunnel syndrome ARTHRITIS 716.90 [...] Otalgia, unspecified Hot flashes 627.2 Resolved Tu aLnderos MD Symptomatic menopausal or female climacteric states [...] po qHS PRN Restless legs ROPINIROLE HCL 42183522797 Active Tu Landeros MD Active VENLAFAXINE HCL 37.5 MG TABS 1 po BID VENLAFAXINE HCL 08421400215 Active Tu Landeros MD Active GABAPENTIN 100 MG CAPS 1 po BID GABAPENTIN 38826349110 Active José Luis Becerra MD Active REQUIP 2 MG TABS Take one tablet at bedtime prn ROPINIROLE HCL 79348051990 No Longer Active Tu Landeros MD Active VENTOLIN HFA 108 (90 BASE) MCG/ACT AERS 1-2 puffs every 4 hours if needed for cough/congestion ALBUTEROL SULFATE 16686854535 No Longer Active Ambika Aden APRN Active ZITHROMAX 250 MG TAB 2 po today, then 1 po q days 2-5 AZITHROMYCIN 64441895768 No Longer Active Miranda Suresh APRN Active METFORMIN HCL 1000 MG TABS 1 tablet by mouth twice daily METFORMIN HCL 86700476509 Active Tu Landeros MD Active FLONASE 50 MCG/ACT SUSP 1 spray each nostril twice daily until bottle empty FLUTICASONE PROPIONATE 52692709425 No Longer Active Tu Landeros MD Active COLACE 100 MG CAP 1 po BID PRN Constipation DOCUSATE SODIUM 69846594515 Active Tu Landeros MD Active SIMVASTATIN 40 MG TABS 0.5 tab daily at bedtime SIMVASTATIN 96683127073 Active Tu Landeros MD Active TRUERESULT BLOOD GLUCOSE W/DEVICE KIT test blood sugar twice daily dx 250.00 BLOOD GLUCOSE MONITORING SUPPL 63531821950 No Longer Active Tu Landeros MD Active TRUEDRAW LANCING DEVICE MISC Test twice a day dx 250.0 LANCET DEVICES 62890769565 No Longer Active Tu Landeros MD Active PREDNISONE 20 MG TAB 2 tablets once daily for 2 days, then 1 tablet once daily for 2 days PREDNISONE 29773577048 No Longer Active Tu Landeros MD Active DICLOFENAC SODIUM 50 MG TBEC 1 tablet by mouth three times a day as needed DICLOFENAC SODIUM 04352091785 No Longer Active Fab Morales DO Active TRUEDRAW LANCING DEVICE MISC test blood sugar twice daily dx: 250.00 LANCET DEVICES 42111740827 Active Tu Landeros MD Active TRUETEST TEST INVITR STRP test blood sugar twice daily. DX 250.0 GLUCOSE BLOOD 21097813852 Active Tu Landeros MD Active EMBRACE BLOOD GLUCOSE TEST STRP test blood sugar twice daily DX 250.0 2014 GLUCOSE BLOOD 29963431010 No Longer Active Tu Landeros MD Active TRUETEST TEST STRP test blood sugar three times daily dx: 250.00 GLUCOSE BLOOD 39718697314 No Longer Active Suze VOGEL Active TRUERESULT BLOOD GLUCOSE W/DEVICE KIT use to test blood sugar tid dx: 250.00 BLOOD GLUCOSE MONITORING SUPPL 38913020668 No Longer Active Suze VOGEL Active ALIGN 4 MG CAPS 1 tid PROBIOTIC PRODUCT 53168858421 No Longer Active Shaun Sy MD Active CIPRO 500 MG TABS 1 bid x 14 days start 09-28-13 CIPROFLOXACIN HCL 13802421766 No Longer Active Shaun Sy MD Active TRAMADOL HCL 50 MG TABS 1-2 tablets every 6 hours as needed for pain TRAMADOL HCL 47587685507 Active Tu Landeros MD Active HYDROCODONE-ACETAMINOPHEN 5-325 MG TABS 1 tab by mouth every 6 hours as needed for pain HYDROCODONE-ACETAMINOPHEN 48055661301 No Longer Active Tu Landeros MD Active OMEPRAZOLE 20 MG CPDR 1 po q a.m. OMEPRAZOLE 02588330424 Active Tu Landeros MD Active GABAPENTIN 100 MG CAPS 1 po bid GABAPENTIN 28179396894 No Longer Active Tu Landeros MD Active B-12 100 MCG TABS Take one by mouth daily CYANOCOBALAMIN 93914808717 No Longer Active Tu Landeros MD Active BACTRIM DS 800-160 MG TABS 1 bid x 14 day start 09-28-13 SULFAMETHOXAZOLE-TRIMETHOPRIM 52197055139 No Longer Active Tu Landeros MD Active CARVEDILOL 12.5 MG TABS 1 po BID CARVEDILOL 27256049902 Active Tu Landeros MD Active SUPER B COMPLEX/VITAMIN C TABS 1 qd B COMPLEX-C 07110094737 Active JASPREET Perez Active TRILIPIX 135 MG CPDR 1 q hs CHOLINE FENOFIBRATE 55970285300 Active Tu Landeros MD Active FENOFIBRATE 145 MG TABS 1 po qd FENOFIBRATE 26442487528 No Longer Active JASPREET Perez Active OMEPRAZOLE 20 MG TBEC 1 PO 30 MIN BEFORE 1ST MEAL OMEPRAZOLE 91359230328 No Longer Active JASPREET Perez Active SIMVASTATIN 40 MG TABS Take one by mouth daily SIMVASTATIN 96345353359 No Longer Active JASPREET Perez Active VENLAFAXINE HCL 75 MG TABS 1 po BID VENLAFAXINE HCL 55325210420 No Longer Active Gustavo JASPREET Green Active CIPRO 500 MG TAB 1 tablet by mouth twice daily CIPROFLOXACIN HCL 59126902802 No Longer Active Tu Landeros MD Active VENLAFAXINE HCL 37.5 MG TABS 1 po BID VENLAFAXINE HCL 03676137700 No Longer Active Suzebianca Nicole RMA Active LAMISIL 250 MG TAB 1 po qd TERBINAFINE HCL 25170021504 No Longer Active Tu Landeros MD Active LORTAB 5 5-500 MG TABS 1/2 to 1 tablet by mouth every 4 hours as needed for pain HYDROCODONE-ACETAMINOPHEN 86753078284 No Longer Active Tu Landeros MD Active ENALAPRIL MALEATE 20 MG TABS 1.5 po qd ENALAPRIL MALEATE 54407323737 Active Tu Landeros MD Active HYDROCODONE-ACETAMINOPHEN 5-500 MG TABS take one po Q 4-6 hours prn HYDROCODONE-ACETAMINOPHEN 82035558781 No Longer Active Tu Landeros MD Active BACTRIM DS 800-160 MG TABS 1 po BID x 7 days SULFAMETHOXAZOLE-TRIMETHOPRIM 66859397915 No Longer Active Tu Landeros MD Active VENLAFAXINE HCL 75 MG TABS 1 po BID VENLAFAXINE HCL 08118108608 No Longer Active Elvira Cervantes MD PhD Active TRAMADOL HCL 50 MG TABS 1 tablets every 6 hours as needed for pain TRAMADOL HCL 27840480540 No Longer Active Tu Landeros MD Active ACCU-CHEK FASTCLIX LANCETS MISC Use to check bloodsugar three times daily as needed LANCETS 22567656699 No Longer Active Tu Landeros MD Active ACCU-CHEK KEYONA PLUS STRP Use for testing bloodsugars three times daily as needed GLUCOSE BLOOD 93838682111 No Longer Active Tu Landeros MD Active ACCU-CHEK KEYONA PLUS W/DEVICE KIT Use for testing bloodsugars three times daily as needed BLOOD GLUCOSE MONITORING SUPPL 26083392516 No Longer Active Tu Landeros MD Active SPIRONOLACTONE 25 MG TAB 0.5 tablet by mouth daily SPIRONOLACTONE 39729334043 No Longer Active Tu Landeros MD Active ALPRAZOLAM 0.5 MG TABS 1 tab every 6hrs as needed ALPRAZOLAM 30687698702 No Longer Active Tu Landeros MD Active AUGMENTIN 875-125 MG TAB 1 tab by mouth twice daily with food AMOXICILLIN-POT CLAVULANATE 41848871955 No Longer Active Tu Landeros MD Active PREDNISONE 20 MG TAB 2 tabs daily for 3 days, 1 tab daily for 3 days, 1/2 tab daily for 2 days PREDNISONE 17892317230 No Longer Active Tu Landeros MD Active XANAX 0.5 MG TABS 1 tablet every 6 hrs prn ALPRAZOLAM 48361378944 No Longer Active Tu Landeros MD Active PREDNISONE 20 MG TAB 2 tabs daily for 3 days, 1 tab daily for 3 days, 1/2 tab daily for 2 days PREDNISONE 93856420083 No Longer Active Tu Landeros MD Active TRIAMCINOLONE ACETONIDE 0.1 % OINT Apply to affected areas TID for up to 2 weeks TRIAMCINOLONE ACETONIDE 47543683729 No Longer Active Tu Landeros MD Active LORTAB 5 5-500 MG TABS 1/2 to 1 tablet by mouth every 4 hours as needed for pain HYDROCODONE-ACETAMINOPHEN 79838681002 No Longer Active Tu Landeros MD Active MULTIVITAMINS TABS Take one by mouth daily MULTIPLE VITAMIN 64704121400 No Longer Active Tu Landeros MD Active MELATONIN 5 MG TABS Take one by mouth daily MELATONIN 24672564634 No Longer Active Tu Landeros MD Active SOMA 350 MG TAB 1 po q 6 hours prn spasm CARISOPRODOL 68443695458 No Longer Active Tu Landeros MD Active MECLIZINE HCL 25 MG CHEW TAB 1 four times a day as needed for dizziness 08/05 MECLIZINE HCL 19932121824 No Longer Active Fab Morales DO Active ANGEL BREEZE 2 TEST DISK test tid prn GLUCOSE BLOOD 83858584718 No Longer Active Negra Scott RN Active REGLAN 10 MG TAB 1 po TID PRN Nausea METOCLOPRAMIDE HCL 78659721986 No Longer Active Tu Landeros MD Active METFORMIN HCL 500 MG TABS 1 PO BID METFORMIN HCL 72402302146 No Longer Active Tu Landeros MD Active AMBIEN 10 MG TAB 1 tab by mouth at bedtime as needed for sleep ZOLPIDEM TARTRATE 39630713849 No Longer Active Tu Landeros MD Active FLUOXETINE HCL 40 MG CAPS 1 po q day FLUOXETINE HCL 64769587338 No Longer Active Mayra [place] Active FISH OIL 1000 MG CAPS Take one by mouth daily OMEGA-3 FATTY ACIDS 27335346066 Active Tu Landeros MD Active GLUCOSAMINE 500 MG TABS Take 2 tab po qd GLUCOSAMINE 18605880327 Active Tu Landeros MD Active TRILIPIX 135 MG CPDR 1 po qd CHOLINE FENOFIBRATE 22542203605 No Longer Active Tu Landeros MD Active ASPIRIN 81 MG CHEW TAB 1 tablet by mouth daily ASPIRIN 11195705120 Active Tu Landeros MD Active FUROSEMIDE 40 MG TAB 1 tablet by mouth daily FUROSEMIDE 40137993222 Active Tu Landeros MD Active KLOR-CON 10 10 MEQ CR-TABS TAKE 2 TABS DAILY POTASSIUM CHLORIDE 75442595242 Active Tu Landeros MD Active AMBIEN 10 MG TAB 1 tab by mouth at bedtime as needed for sleep AMBIEN 10 MG TAB 701518 ZOLPIDEM TARTRATE Inactive METFORMIN HCL 500 MG TABS 1 PO BID METFORMIN HCL 500 MG TABS 967879 METFORMIN HCL Inactive REGLAN 10 MG TAB 1 po TID PRN Nausea REGLAN 10 MG TAB 756963 METOCLOPRAMIDE HCL Inactive MECLIZINE HCL 25 MG CHEW TAB 1 four times a day as needed for dizziness 08/05 MECLIZINE HCL 25 MG CHEW TAB 699593 MECLIZINE HCL Inactive SOMA 350 MG TAB 1 po q 6 hours prn spasm SOMA 350 MG TAB 675552 CARISOPRODOL Inactive MELATONIN 5 MG TABS Take one by mouth daily MELATONIN 5 MG TABS 098383 MELATONIN Inactive MULTIVITAMINS TABS Take one by mouth daily MULTIVITAMINS TABS MULTIPLE VITAMIN Inactive LORTAB 5 5-500 MG TABS 1/2 to 1 tablet by mouth every 4 hours as needed for pain LORTAB 5 5-500 MG TABS HYDROCODONE- ACETAMINOPHEN Inactive XANAX 0.5 MG TABS 1 tablet every 6 hrs prn XANAX 0.5 MG TABS 828780 ALPRAZOLAM Inactive AUGMENTIN 875-125 MG TAB 1 tab by mouth twice daily with food AUGMENTIN 875-125 MG TAB 730322 AMOXICILLIN-POT CLAVULANATE Inactive ALPRAZOLAM 0.5 MG TABS 1 tab every 6hrs as needed ALPRAZOLAM 0.5 MG TABS 766860 ALPRAZOLAM Inactive SPIRONOLACTONE 25 MG TAB 0.5 tablet by mouth daily SPIRONOLACTONE 25 MG TAB 379130 SPIRONOLACTONE Inactive ACCU-CHEK KEYONA PLUS W/DEVICE KIT Use for testing bloodsugars three times daily as needed ACCU-CHEK KEYONA PLUS W/DEVICE KIT BLOOD GLUCOSE MONITORING SUPPL Inactive ACCU-CHEK KEYONA PLUS STRP Use for testing bloodsugars three times daily as needed ACCU-CHEK KEYONA PLUS STRP GLUCOSE BLOOD Inactive ACCU-CHEK FASTCLIX LANCETS [facility] Use to check bloodsugar three times daily as needed ACCU-CHEK FASTCLIX LANCETS [facility] [id number] LANCETS Inactive TRAMADOL HCL 50 MG TABS 1 tablets every 6 hours as needed for pain TRAMADOL HCL 50 MG TABS 746420 TRAMADOL HCL Inactive VENLAFAXINE HCL 75 MG TABS 1 po BID VENLAFAXINE HCL 75 MG TABS 921590 VENLAFAXINE HCL Inactive HYDROCODONE-ACETAMINOPHEN 5-500 MG TABS take one po Q 4-6 hours prn HYDROCODONE-ACETAMINOPHEN 5-500 MG TABS HYDROCODONE- ACETAMINOPHEN Inactive LORTAB 5 5-500 MG TABS 1/2 to 1 tablet by mouth every 4 hours as needed for pain LORTAB 5 5-500 MG TABS HYDROCODONE- ACETAMINOPHEN Inactive LAMISIL 250 MG TAB 1 po qd LAMISIL 250 MG TAB 901019 TERBINAFINE HCL Inactive VENLAFAXINE HCL 37.5 MG TABS 1 po BID VENLAFAXINE HCL 37.5 MG TABS 593745 VENLAFAXINE HCL Inactive CIPRO 500 MG TAB 1 tablet by mouth twice daily CIPRO 500 MG TAB 895877 CIPROFLOXACIN HCL Inactive VENLAFAXINE HCL 75 MG TABS 1 po BID VENLAFAXINE HCL 75 MG TABS 547336 VENLAFAXINE HCL Inactive SIMVASTATIN 40 MG TABS Take one by mouth daily SIMVASTATIN 40 MG TABS 146405 SIMVASTATIN Inactive OMEPRAZOLE 20 MG TBEC 1 PO 30 MIN BEFORE 1ST MEAL OMEPRAZOLE 20 MG TBEC 946031 OMEPRAZOLE Inactive FENOFIBRATE 145 MG TABS 1 po qd FENOFIBRATE 145 MG TABS 293863 FENOFIBRATE Inactive BACTRIM DS 800-160 MG TABS 1 bid x 14 day start 09-28-13 BACTRIM DS 800-160 MG TABS 246901 SULFAMETHOXAZOLE-TRIMETHOPRIM Inactive B-12 100 MCG TABS Take one by mouth daily B-12 100 MCG TABS CYANOCOBALAMIN Inactive GABAPENTIN 100 MG CAPS 1 po bid GABAPENTIN 100 MG CAPS 594781 GABAPENTIN Inactive HYDROCODONE-ACETAMINOPHEN 5-325 MG TABS 1 tab by mouth every 6 hours as needed for pain HYDROCODONE-ACETAMINOPHEN 5-325 MG TABS 692583 HYDROCODONE-ACETAMINOPHEN Inactive CIPRO 500 MG TABS 1 bid x 14 days start 09-28-13 CIPRO 500 MG TABS 802689 CIPROFLOXACIN HCL Inactive ALIGN 4 MG CAPS [...] as needed DICLOFENAC SODIUM 50 MG TBEC 572881 DICLOFENAC SODIUM Inactive PREDNISONE 20 MG TAB 2 tablets once daily for 2 days, then 1 tablet once daily for 2 days PREDNISONE 20 MG TAB 509961 PREDNISONE Inactive TRUEDRAW LANCING DEVICE MISC Test [...] at bedtime prn REQUIP 2 MG TABS 804579 ROPINIROLE HCL Inactive TRIAMCINOLONE ACETONIDE 0.1 % OINT Apply to affected areas TID for up to 2 weeks TRIAMCINOLONE ACETONIDE 0.1 % OINT 8427073 TRIAMCINOLONE ACETONIDE Inactive PREDNISONE 20 MG TAB 2 tabs daily for 3 days, 1 tab daily for 3 days, 1/2 tab daily for 2 days PREDNISONE 20 MG TAB 781947 PREDNISONE Inactive PREDNISONE 20 MG TAB 2 tabs daily for 3 days, 1 tab daily for 3 days, 1/2 tab daily for 2 days PREDNISONE 20 MG TAB 332497 PREDNISONE Inactive BACTRIM DS 800-160 MG TABS 1 po BID x 7 days BACTRIM DS 800-160 MG TABS 477164 SULFAMETHOXAZOLE-TRIMETHOPRIM Inactive ZITHROMAX 250 MG TAB 2 po today, then 1 po q days 2-5 ZITHROMAX 250 MG TAB 1596661 AZITHROMYCIN Inactive Advance Directives Directive Description Start Date DISCUSSED WITH PATIENT -- NO DECISION MADE Immunizations Vaccine Administration Date Value Standard Description Seasonal influenza vaccine, injectable, containing preservative, for > 3 years old (Afluria, FluLaval, Fluzone, Fluvirin, Fluarix, Agriflu(>=18 yo)) Fluzone (>3 yrs.) [[id number]] Influenza, seasonal, injectable influenza immunization (Flu Vax) has been administered 02/22/2012 influenza virus vaccine, unspecified formulation Seasonal influenza vaccine, injectable, containing preservative, for > 3 years old (Afluria, FluLaval, Fluzone, Fluvirin, Fluarix, Agriflu(>=18 yo)) Fluzone (>3 yrs.) [[id number]] Influenza, seasonal, injectable Vital Signs Date Name [...] 7.4 % 4.3-6.0 sodium, serum 140 mmol/L 823-885 7049/09/07 potassium, serum 4.3 mmol/L 3.5-5.2 chloride, serum 104 mmol/L 98-107 carbon dioxide, venous blood 27.7 mmol/L 21.0-32.0 blood glucose 156 mg/dL 65-110 calcium, serum 9.3 mg/dL 8.5-10.1 urea nitrogen, blood 23 mg/dL 7-18 creatinine, serum 1.21 mg/dL 0.55-1.30 Lab Report: Lipid Panel, Comp. Metabolic Panel - Chemistry cholesterol, serum 124 mg/dL [phone]/01/12 triglyceride, serum, fasting 135 mg/dL 30-200 HDL cholesterol, serum 41 mg/dL 32-96 LDL cholesterol, serum 56 mg/dL 0-130 sodium, serum 140 mmol/L 108-607 4150/01/12 carbon dioxide, venous blood 27.7 mmol/L 21.0-32.0 potassium, serum 4.5 mmol/L 3.5-5.2 chloride, serum 104 mmol/L 98-107 blood glucose 139 mg/dL 65-110 urea nitrogen, blood 16 mg/dL 7-18 alanine aminotransferase (SGPT), serum 32 U/L 12-78 aspartate aminotransferase (SGOT), serum 25 U/L 15-37 calcium, serum 9.1 mg/dL 8.5-10.1 bilirubin, serum, total 0.50 mg/dL 0.00-1.00 Encounters Code Encounter Date Provider Facility CPT-40712 Level 4 Est. Patient 14:40:19 CDT Tu Landeros MD [facility] CPT-86804 Level 4 Est. Patient 14:06:04 BACK HAND Tu Landeros MD [facility] CPT-66185 Level 3 Est. Patient 14:05:18 BACK HAND Tu Landeros MD [facility] CPT-53368 Level 3 Est. Patient 10:06:54 BACK HAND Miranda Suresh APRN [facility] CPT-61300 Level 4 Est. Patient 13:50:18 BACK HAND Tu Landeros MD [facility] CPT-25596 Level 3 Est. Patient 10:30:04 CDT Tu Landeros MD [facility] CPT-85869 Level 4 Est. Patient 11:03:38 CDT Tu Landeros MD [facility] CPT-38817 Level 3 Est. Patient 10:20:44 CDT Fab Morales DO [facility] CPT-01593 Level 4 Est. Patient 14:38:57 CDT Tu Landeros MD [facility] CPT-70993 Level 4 Est. Patient 14:27:39 BACK HAND Tu Landeros MD [facility] CPT-46272 Level 4 Est. Patient 09:45:25 CDT Tu Landeros MD [facility] CPT-60259 Level 4 Est. Patient 09:05:20 BACK HAND Tu Landeros MD [facility] CPT-45169 Level 4 Est. Patient 14:09:06 CDT Tu Landeros MD [facility] CPT-83514 Level 3 Est. Patient 13:36:54 CDT Tu Landeros MD [facility] CPT-38107 Level 3 Est. Patient 08:59:14 CDT Tu Landeros MD [facility] CPT-06455 Level 3 Est. Patient 13:48:35 CDT Fab Morales DO [facility] CPT-69500 Level 4 Est. Patient 10:05:48 CDT Tu Landeros MD [facility] CPT-86765 Level 3 Est. Patient 13:38:42 CDT Marek BANSK [facility] CPT-22611 Level 5 Est. Patient 08:08:39 CDT Jerrica FRANCIS [facility] CPT-68044 Level 4 Est. Patient 14:23:38 CDT Tu Landeros MD [facility] CPT-19150 Level 3 Est. Patient 11:44:04 CDT Tu Landeros MD [facility] CPT-56019 Level 3 Est. Patient 11:03:20 BACK HAND Tu Landeros MD [facility] CPT-04761 Level 3 Est. Patient 11:03:14 BACK HAND Tu Landeros MD [facility] CPT-16412 Level 3 Est. Patient 12:42:49 CDT Tu Landeros MD [facility] CPT-76134 Level 3 Est. Patient 11:52:06 CDT Tu Landeros MD [facility] CPT-02203 Level 3 Est. Patient 13:58:11 CDT Tu Landeros MD [facility] CPT-27845 Level 3 Est. Patient 17:50:07 CDT Fab Morales DO [facility] CPT-72112 Level 3 Est. Patient 12:06:29 CDT Elvira Cervantes MD [facility] CPT-92247 Level 3 Est. Patient 15:50:32 CDT Tu Landeros MD [facility] CPT-50185 Level 4 Est. Patient 16:08:29 CDT Tu Landeros MD [facility] CPT-32758 Level 3 Est. Patient 16:04:19 CDT Tu Landeros MD [facility] CPT-69773 Level 3 Est. Patient 11:22:30 BACK HAND Tu Landeros MD [facility] CPT-74532 Level 4 Est. Patient 16:24:02 BACK HAND Tu Landeros MD [facility] CPT-02705 Level 3 Est. Patient 17:21:23 BACK HAND Tu Landeros MD [facility] Procedures Code Procedure Name Date Entry Date Standard Description CPT-25175 Magnesium - LAB USE ONLY 11:14:20 BACK HAND CPT-41900 Lipid - LAB USE ONLY 11:14:20 BACK HAND CPT-67347 HGBA1C - LAB USE ONLY 11:14:20 BACK HAND CPT-32096 CMP - LAB USE ONLY 11:14:19 BACK HAND CPT-93209 CBC - LAB USE ONLY 11:14:19 BACK HAND CPT-61535 Venipuncture Draw Fee 11:14:18 BACK HAND CPT-27789 First Vx - Ix admin for Medicare patients 16:46:52 CDT CPT-44923 Fluzone Preservative Free Intramuscular Suspension 16:46 :51 CDT CPT-34398 CBC - LAB USE ONLY 17:14:46 CDT CPT-16923 HGBA1C - LAB USE ONLY 17:14:46 CDT CPT-03321 Venipuncture Draw Fee 17:14:46 CDT CPT-G0438 Initial Annual Wellness Exam 14:13:04 CDT CPT-66880 Breathing Tx 10:06:54 BACK HAND CPT-96934 Postop F/U Visit 10:02:45 CDT CPT-LR Lesion Removal 09:02:56 CDT CPT-JTINJ Asp/Joint Injection 15:51:27 BACK HAND CPT-OV Office Visit 15:52:02 BACK HAND CPT-OV Office Visit 15:45:11 CDT CPT-000 Give Zostavax 14:09:06 CDT CPT-78969 Administration single or combination vaccine inc oral 15 :19:04 CDT CPT-30376 Zoster Vaccine (Zostavax) 15:19:04 CDT CPT-14848 Administration single or combination vaccine inc oral 20 :51:03 CDT CPT-47905 Influenza split virus > age 3 20:51:03 CDT CPT-37731 No Charge Offi Visit 14:52:03 CDT CPT-OV Office Visit 14:57:43 CDT CPT-OV Office Visit 15:22:32 CDT CPT-27829 Administration single or combination vaccine inc oral 11 :33:15 CDT CPT-34306 Influenza split virus > age 3 11:33:15 CDT
--- OUTSIDE RECORDS SUMMARY | 2018-04-25 13:33 | XMS REPORT | Clinical Summary ---
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 Moderate or severe vision impairment, both [...] Tu Landeros MD ARTHRITIS ICD-716.90 Inactive Tu aLnderos MD KNEE PAIN ICD-719.46 Tessa Landeros MD [...] hours if needed for cough/congestion ALBUTEROL SULFATE 07275241763 No Longer Active Ambika Aden APRN Active ZITHROMAX 250 MG TAB 2 po today, then 1 po q days 2-5 AZITHROMYCIN 15621817560 No Longer Active Miranda Suresh APRN Active METFORMIN HCL 1000 MG TABS 1 tablet by mouth twice daily METFORMIN HCL 45919625074 Active Crystal Doyle Active FLONASE 50 MCG/ACT SUSP 1 spray each nostril twice daily until bottle empty FLUTICASONE PROPIONATE 93035185209 No Longer Active Tu Landeros MD Active COLACE 100 MG CAP 1 po BID PRN Constipation DOCUSATE SODIUM 25001660242 Active Tu Landeros MD Active SIMVASTATIN 40 MG TABS 0.5 tab daily at bedtime SIMVASTATIN 14256961889 Active Tu Landeros MD Active TRUERESULT BLOOD GLUCOSE W/DEVICE KIT test blood sugar twice daily dx 250.00 BLOOD GLUCOSE MONITORING SUPPL 50358407497 No Longer Active Tu Landeros MD Active TRUEDRAW LANCING DEVICE MISC Test twice a day dx 250.0 LANCET DEVICES 59946846518 No Longer Active Tu Landeros MD Active PREDNISONE 20 MG TAB 2 tablets once daily for 2 days, then 1 tablet once daily for 2 days PREDNISONE 17665754299 No Longer Active Tu Landeros MD Active DICLOFENAC SODIUM 50 MG TBEC 1 tablet by mouth three times a day as needed DICLOFENAC SODIUM 64144586382 No Longer Active Fab Morales DO Active TRUEDRAW LANCING DEVICE MISC test blood sugar twice daily dx: 250.00 LANCET DEVICES 58078363561 Active Tu Landeros MD Active TRUETEST TEST INVITR STRP test blood sugar twice daily. DX 250.0 GLUCOSE BLOOD 79034562261 Active Tu Landeros MD Active EMBRACE BLOOD GLUCOSE TEST STRP test blood sugar twice daily DX 250.0 2014 GLUCOSE BLOOD 91015141457 No Longer Active Tu Landeros MD Active TRUETEST TEST STRP test blood sugar three times daily dx: 250.00 GLUCOSE BLOOD 59304332060 No Longer Active Suzebianca Nicole RMMahendra Active TRUERESULT BLOOD GLUCOSE W/DEVICE KIT use to test blood sugar tid dx: 250.00 BLOOD GLUCOSE MONITORING SUPPL 10020462116 No Longer Active Suze Corey RMA Active ALIGN 4 MG CAPS 1 tid PROBIOTIC PRODUCT 57233257651 No Longer Active Shaun Sy MD Active CIPRO 500 MG TABS 1 bid x 14 days start 09-28-13 CIPROFLOXACIN HCL 54019882229 No Longer Active Shaun Sy MD Active TRAMADOL HCL 50 MG TABS 1-2 tablets every 6 hours as needed for pain TRAMADOL HCL 07187647717 Active Tu Landeros MD Active HYDROCODONE-ACETAMINOPHEN 5-325 MG TABS 1 tab by mouth every 6 hours as needed for pain HYDROCODONE-ACETAMINOPHEN 88723448153 No Longer Active Tu Landeros MD Active OMEPRAZOLE 20 MG CPDR 1 po q a.m. OMEPRAZOLE 05228070755 Active Tu Landeros MD Active GABAPENTIN 100 MG CAPS 1 po bid GABAPENTIN 56359632798 No Longer Active Tu Landeros MD Active B-12 100 MCG TABS Take one by mouth daily CYANOCOBALAMIN 73883504134 No Longer Active Tu Landeros MD Active GABAPENTIN 100 MG CAPS by mouth twice a day GABAPENTIN 42805831539 Active Tiffanie Doyle Active BACTRIM DS 800-160 MG TABS 1 bid x 14 day start 09-28-13 SULFAMETHOXAZOLE-TRIMETHOPRIM 69564112825 No Longer Active Tu Landeros MD Active CARVEDILOL 12.5 MG TABS 1 po BID CARVEDILOL 20394783385 Active Kofilaura Fatumashahid PATEL Active SUPER B COMPLEX/VITAMIN C TABS 1 qd B COMPLEX-C 72707685762 Active JASPREET Perez Active TRILIPIX 135 MG CPDR 1 q hs CHOLINE FENOFIBRATE 54512709254 Active Tu Landeros MD Active FENOFIBRATE 145 MG TABS 1 po qd FENOFIBRATE 10590769700 No Longer Active JASPREET Perez Active OMEPRAZOLE 20 MG TBEC 1 PO 30 MIN BEFORE 1ST MEAL OMEPRAZOLE 34548445720 No Longer Active JASPREET Perez Active SIMVASTATIN 40 MG TABS Take one by mouth daily SIMVASTATIN 17102482352 No Longer Active JASPREET Perez Active VENLAFAXINE HCL 37.5 MG TABS 1 bid VENLAFAXINE HCL 13441887507 Active Tu Landeros MD Active VENLAFAXINE HCL 75 MG TABS 1 po BID VENLAFAXINE HCL 28011611023 No Longer Active JASPREET Perez Active CIPRO 500 MG TAB 1 tablet by mouth twice daily CIPROFLOXACIN HCL 83029867530 No Longer Active Tu Landeros MD Active VENLAFAXINE HCL 37.5 MG TABS 1 po BID VENLAFAXINE HCL 45630779417 No Longer Active Suze Corey RMA Active LAMISIL 250 MG TAB 1 po qd TERBINAFINE HCL 66045407283 No Longer Active Tu Landeros MD Active LORTAB 5 5-500 MG TABS 1/2 to 1 tablet by mouth every 4 hours as needed for pain HYDROCODONE-ACETAMINOPHEN 42471201387 No Longer Active Tu Landeros MD Active ENALAPRIL MALEATE 20 MG TABS 1.5 po qd ENALAPRIL MALEATE 32317996431 Active Tu Landeros MD Active HYDROCODONE-ACETAMINOPHEN 5-500 MG TABS take one po Q 4-6 hours prn HYDROCODONE-ACETAMINOPHEN 38770444783 No Longer Active Tu Landeros MD Active BACTRIM DS 800-160 MG TABS 1 po BID x 7 days SULFAMETHOXAZOLE-TRIMETHOPRIM 70397025307 No Longer Active Tu Landeros MD Active VENLAFAXINE HCL 75 MG TABS 1 po BID VENLAFAXINE HCL 14563433183 No Longer Active Elvira Cervantes MD PhD Active TRAMADOL HCL 50 MG TABS 1 tablets every 6 hours as needed for pain TRAMADOL HCL 66221522019 No Longer Active Tu Landeros MD Active ACCU-CHEK FASTCLIX LANCETS MISC Use to check bloodsugar three times daily as needed LANCETS 93780800025 No Longer Active Tu Landeros MD Active ACCU-CHEK KEYONA PLUS STRP Use for testing bloodsugars three times daily as needed GLUCOSE BLOOD 76332450143 No Longer Active Tu Landeros MD Active ACCU-CHEK KEYONA PLUS W/DEVICE KIT Use for testing bloodsugars three times daily as needed BLOOD GLUCOSE MONITORING SUPPL 96850108518 No Longer Active Tu Landeros MD Active SPIRONOLACTONE 25 MG TAB 0.5 tablet by mouth daily SPIRONOLACTONE 49049296475 No Longer Active Tu Landeros MD Active ALPRAZOLAM 0.5 MG TABS 1 tab every 6hrs as needed ALPRAZOLAM 74722285461 No Longer Active Tu Landeros MD Active AUGMENTIN 875-125 MG TAB 1 tab by mouth twice daily with food AMOXICILLIN-POT CLAVULANATE 62090731131 No Longer Active Tu Landeros MD Active PREDNISONE 20 MG TAB 2 tabs daily for 3 days, 1 tab daily for 3 days, 1/2 tab daily for 2 days PREDNISONE 30902788408 No Longer Active Tu Landeros MD Active XANAX 0.5 MG TABS 1 tablet every 6 hrs prn ALPRAZOLAM 42557334992 No Longer Active Tu Landeros MD Active PREDNISONE 20 MG TAB 2 tabs daily for 3 days, 1 tab daily for 3 days, 1/2 tab daily for 2 days PREDNISONE 37616024367 No Longer Active Tu Landeros MD Active TRIAMCINOLONE ACETONIDE 0.1 % OINT Apply to affected areas TID for up to 2 weeks TRIAMCINOLONE ACETONIDE 89764191578 No Longer Active Tu Landeros MD Active LORTAB 5 5-500 MG TABS 1/2 to 1 tablet by mouth every 4 hours as needed for pain HYDROCODONE-ACETAMINOPHEN 23754848135 No Longer Active Tu Landeros MD Active MULTIVITAMINS TABS Take one by mouth daily MULTIPLE VITAMIN 43590813624 No Longer Active Tu Landeros MD Active MELATONIN 5 MG TABS Take one by mouth daily MELATONIN 42895484943 No Longer Active Tu Landeros MD Active SOMA 350 MG TAB 1 po q 6 hours prn spasm CARISOPRODOL 00521502440 No Longer Active Tu Landeros MD Active MECLIZINE HCL 25 MG CHEW TAB 1 four times a day as needed for dizziness 08/05 MECLIZINE HCL 67636974010 No Longer Active Fab Morales DO Active ANGEL BREEZE 2 TEST DISK test tid prn GLUCOSE BLOOD 94839509689 No Longer Active Negra Scott RN Active REGLAN 10 MG TAB 1 po TID PRN [place] METOCLOPRAMIDE HCL 43880065460 No Longer Active Tu Landeros MD Active METFORMIN HCL 500 MG TABS 1 PO BID METFORMIN HCL 97558990137 No Longer Active Tu Landeros MD Active AMBIEN 10 MG TAB 1 tab by mouth at bedtime as needed for sleep ZOLPIDEM TARTRATE 98227815071 No Longer Active Tu Landeros MD Active FLUOXETINE HCL 40 MG CAPS 1 po q day FLUOXETINE HCL 09702396327 No Longer Active Mayra Elkhart Active FISH OIL 1000 MG CAPS Take one by mouth daily OMEGA-3 FATTY ACIDS 66462920897 Active Tu Landeros MD Active GLUCOSAMINE 500 MG TABS Take 2 tab po qd GLUCOSAMINE 72722556916 Active Tu Landeros MD Active TRILIPIX 135 MG CPDR 1 po qd CHOLINE FENOFIBRATE 92473563679 No Longer Active Tu Landeros MD Active ASPIRIN 81 MG CHEW TAB 1 tablet by mouth daily ASPIRIN 84358837185 Active Tu Landeros MD Active FUROSEMIDE 40 MG TAB 1 tablet by mouth daily FUROSEMIDE 27500058386 Active Tu Landeros MD Active REQUIP 2 MG TABS Take one tablet at bedtime prn ROPINIROLE HCL 42903508460 Active Tu Landeros MD Active KLOR-CON 10 10 MEQ CR-TABS TAKE 2 TABS DAILY POTASSIUM CHLORIDE 31668177182 Active Tu Landeros MD Active AMBIEN 10 MG TAB 1 tab by mouth at bedtime as needed for sleep AMBIEN 10 MG TAB 951582 ZOLPIDEM TARTRATE Inactive METFORMIN HCL 500 MG TABS 1 PO BID METFORMIN HCL 500 MG TABS 765659 METFORMIN HCL Inactive REGLAN 10 MG TAB 1 po TID PRN Nausea REGLAN 10 MG TAB 312594 METOCLOPRAMIDE HCL Inactive MECLIZINE HCL 25 MG CHEW TAB 1 four times a day as needed for dizziness 08/05 MECLIZINE HCL 25 MG CHEW TAB 167302 MECLIZINE HCL Inactive SOMA 350 MG TAB 1 po q 6 hours prn spasm SOMA 350 MG TAB 911313 CARISOPRODOL Inactive MELATONIN 5 MG TABS Take one by mouth daily MELATONIN 5 MG TABS 450265 MELATONIN Inactive MULTIVITAMINS TABS Take one by mouth daily MULTIVITAMINS TABS MULTIPLE VITAMIN Inactive LORTAB 5 5-500 MG TABS 1/2 to 1 tablet by mouth every 4 hours as needed for pain LORTAB 5 5-500 MG TABS HYDROCODONE- ACETAMINOPHEN Inactive XANAX 0.5 MG TABS 1 tablet every 6 hrs prn XANAX 0.5 MG TABS 782824 ALPRAZOLAM Inactive AUGMENTIN 875-125 MG TAB 1 tab by mouth twice daily with food AUGMENTIN 875-125 MG TAB 192733 AMOXICILLIN-POT CLAVULANATE Inactive ALPRAZOLAM 0.5 MG TABS 1 tab every 6hrs as needed ALPRAZOLAM 0.5 MG TABS 441735 ALPRAZOLAM Inactive SPIRONOLACTONE 25 MG TAB 0.5 tablet by mouth daily SPIRONOLACTONE 25 MG TAB 788089 SPIRONOLACTONE Inactive ACCU-CHEK KEYONA PLUS W/DEVICE KIT Use for testing bloodsugars three times daily as needed ACCU-CHEK KEYONA PLUS W/DEVICE KIT BLOOD GLUCOSE MONITORING SUPPL Inactive ACCU-CHEK KEYONA PLUS STRP Use for testing bloodsugars three times daily as needed ACCU-CHEK KEYONA PLUS STRP GLUCOSE BLOOD Inactive ACCU-CHEK FASTCLIX LANCETS MISC Use to check bloodsugar three times daily as needed ACCU-CHEK FASTCLIX LANCETS MISC 27953221676 LANCETS Inactive TRAMADOL HCL 50 MG TABS 1 tablets every 6 hours as needed for pain TRAMADOL HCL 50 MG TABS 422851 TRAMADOL HCL Inactive VENLAFAXINE HCL 75 MG TABS 1 po BID VENLAFAXINE HCL 75 MG TABS 851590 VENLAFAXINE HCL Inactive HYDROCODONE-ACETAMINOPHEN 5-500 MG TABS take one po Q 4-6 hours prn HYDROCODONE-ACETAMINOPHEN 5-500 MG TABS HYDROCODONE- ACETAMINOPHEN Inactive LORTAB 5 5-500 MG TABS 1/2 to 1 tablet by mouth every 4 hours as needed for pain LORTAB 5 5-500 MG TABS HYDROCODONE- ACETAMINOPHEN Inactive LAMISIL 250 MG TAB 1 po qd LAMISIL 250 MG TAB 329977 TERBINAFINE HCL Inactive VENLAFAXINE HCL 37.5 MG TABS 1 po BID VENLAFAXINE HCL 37.5 MG TABS 062991 VENLAFAXINE HCL Inactive CIPRO 500 MG TAB 1 tablet by mouth twice daily CIPRO 500 MG TAB 052277 CIPROFLOXACIN HCL Inactive VENLAFAXINE HCL 75 MG TABS 1 po BID VENLAFAXINE HCL 75 MG TABS 692575 VENLAFAXINE HCL Inactive SIMVASTATIN 40 MG TABS Take one by mouth daily SIMVASTATIN 40 MG TABS 437530 SIMVASTATIN Inactive OMEPRAZOLE 20 MG TBEC 1 PO 30 MIN BEFORE 1ST MEAL OMEPRAZOLE 20 MG TBEC 428492 OMEPRAZOLE Inactive FENOFIBRATE 145 MG TABS 1 po qd FENOFIBRATE 145 MG TABS 482410 FENOFIBRATE Inactive BACTRIM DS 800-160 MG TABS 1 bid x 14 day start 09-28-13 BACTRIM DS 800-160 MG TABS 632616 SULFAMETHOXAZOLE-TRIMETHOPRIM Inactive B-12 100 MCG TABS Take one by mouth daily B-12 100 MCG TABS CYANOCOBALAMIN Inactive GABAPENTIN 100 MG CAPS 1 po bid GABAPENTIN 100 MG CAPS 088704 GABAPENTIN Inactive HYDROCODONE-ACETAMINOPHEN 5-325 MG TABS 1 tab by mouth every 6 hours as needed for pain HYDROCODONE-ACETAMINOPHEN 5-325 MG TABS 999873 HYDROCODONE-ACETAMINOPHEN Inactive CIPRO 500 MG TABS 1 bid x 14 days start 09-28-13 CIPRO 500 MG TABS 471646 CIPROFLOXACIN HCL Inactive ALIGN 4 MG CAPS [...] as needed DICLOFENAC SODIUM 50 MG TBEC 378598 DICLOFENAC SODIUM Inactive PREDNISONE 20 MG TAB 2 tablets once daily for 2 days, then 1 tablet once daily for 2 days PREDNISONE 20 MG TAB 735573 PREDNISONE Inactive TRUEDRAW LANCING DEVICE MISC Test [...] 2 weeks TRIAMCINOLONE ACETONIDE 0.1 % OINT 3864723 TRIAMCINOLONE ACETONIDE Inactive PREDNISONE 20 MG TAB 2 tabs daily for 3 days, 1 tab daily for 3 days, 1/2 tab daily for 2 days PREDNISONE 20 MG TAB 475170 PREDNISONE Inactive PREDNISONE 20 MG TAB 2 tabs daily for 3 days, 1 tab daily for 3 days, 1/2 tab daily for 2 days PREDNISONE 20 MG TAB 315381 PREDNISONE Inactive BACTRIM DS 800-160 MG TABS 1 po BID x 7 days BACTRIM DS 800-160 MG TABS 755938 SULFAMETHOXAZOLE-TRIMETHOPRIM Inactive ZITHROMAX 250 MG TAB 2 po today, then 1 po q days 2-5 ZITHROMAX 250 MG TAB 0302303 AZITHROMYCIN Inactive Advance Directives Directive Description Start Date DISCUSSED WITH PATIENT -- NO DECISION MADE Immunizations Vaccine Administration Date Value Standard Description Seasonal influenza vaccine, injectable, containing preservative, for > 3 years old (Afluria, FluLaval, Fluzone, Fluvirin, Fluarix, Agriflu(>=18 yo)) Fluzone (>3 yrs.) [[id number]] Influenza, seasonal, injectable influenza immunization (Flu Vax) has been administered 02/22/2012 influenza virus vaccine, unspecified formulation Seasonal influenza vaccine, injectable, containing preservative, for > 3 years old (Afluria, FluLaval, Fluzone, Fluvirin, Fluarix, Agriflu(>=18 yo)) Fluzone (>3 yrs.) [[id number]] Influenza, seasonal, injectable Vital Signs Date Name [...] MICROALBUMIN - Chemistry sodium, serum 142 mmol/L 215-942 9768/10/08 potassium, serum 4.5 mmol/L 3.5-5.2 chloride, serum [...] 0.30 mg/dL 0.00-1.00 cholesterol, serum 111 mg/dL 568-678 5390/07/28 triglyceride, serum, fasting 177 mg/dL 30-200 HDL [...] Panel - Chemistry cholesterol, serum 124 mg/dL 402-876 6627/01/12 triglyceride, serum, fasting 135 mg/dL 30-200 HDL cholesterol, serum 41 mg/dL 32-96 LDL cholesterol, serum 56 mg/dL 0-130 sodium, serum 140 mmol/L 607-690 7511/01/12 carbon dioxide, venous blood 27.7 mmol/L 21.0-32.0 potassium, serum 4.5 mmol/L 3.5-5.2 chloride, serum 104 mmol/L 98-107 blood glucose 139 mg/dL 65-110 urea nitrogen, blood 16 mg/dL 7-18 alanine aminotransferase (SGPT), serum 32 U/L 12-78 aspartate aminotransferase (SGOT), serum 25 U/L 15-37 calcium, serum 9.1 mg/dL 8.5-10.1 bilirubin, serum, total 0.50 mg/dL 0.00-1.00 Encounters Code Encounter Date Provider Facility CPT-72744 Level 4 Est. 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 Patient 14:05:18 CLINICAL LABORATORY SERVICE TEACHER Tu Landeros MD [facility] CPT-74491 Level 3 Est. Patient 10:06:54 CLINICAL LABORATORY SERVICE TEACHER Miranda Suresh APRN [facility] CPT-69780 Level 4 Est. Patient 13:50:18 CLINICAL LABORATORY SERVICE TEACHER Tu Landeros MD [facility] CPT-45542 Level 3 Est. Patient 10:30:04 CDT Tu Landeros MD [facility] CPT-19836 Level 4 Est. Patient 11:03:38 CDT Tu Landeros MD [facility] CPT-21282 Level 3 Est. Patient 10:20:44 CDT Fab Morales DO [facility] CPT-79861 Level 4 Est. Patient 14:38:57 CDT Tu Landeros MD [facility] CPT-02986 Level 4 Est. Patient 14:27:39 CLINICAL LABORATORY SERVICE TEACHER Tu Landeros MD [facility] CPT-36104 Level 4 Est. Patient 09:45:25 CDT Tu Landeros MD [facility] CPT-92433 Level 4 Est. Patient 09:05:20 CLINICAL LABORATORY SERVICE TEACHER Tu Landeros MD [facility] CPT-23793 Level 4 Est. Patient 14:09:06 CDT Tu Landeros MD [facility] CPT-42853 Level 3 Est. Patient 13:36:54 CDT Tu Landeros MD [facility] CPT-75215 Level 3 Est. Patient 08:59:14 CDT Tu Landeros MD [facility] CPT-57098 Level 3 Est. Patient 13:48:35 CDT Fab Morales DO [facility] CPT-74101 Level 4 Est. Patient 10:05:48 CDT uT Landeros MD [facility] CPT-78026 Level 3 Est. Patient 13:38:42 CDT Marek BANKS [facility] CPT-01111 Level 5 Est. Patient 08:08:39 CDT Jerrica FRANCIS [facility] CPT-97955 Level 4 Est. Patient 14:23:38 CDT Tu Landeros MD [facility] CPT-00313 Level 3 Est. Patient 11:44:04 CDT Tu Landeros MD [facility] CPT-13340 Level 3 Est. Patient 11:03:20 CLINICAL LABORATORY SERVICE TEACHER Tu Landeros MD [facility] CPT-51909 Level 3 Est. Patient 11:03:14 CLINICAL LABORATORY SERVICE TEACHER Tu Landeros MD [facility] CPT-09703 Level 3 Est. Patient 12:42:49 CDT Tu Landeros MD [facility] CPT-01594 Level 3 Est. Patient 11:52:06 CDT Tu Landeros MD [facility] CPT-17595 Level 3 Est. Patient 13:58:11 CDT Tu Landeros MD [facility] CPT-56444 Level 3 Est. Patient 17:50:07 CDT Fab Morales DO [facility] CPT-43015 Level 3 Est. Patient 12:06:29 CDT Elvira Cervantes MD, PhD [facility] CPT-86782 Level 3 Est. Patient 15:50:32 CDT Tu Landeros MD [facility] CPT-77750 Level 4 Est. Patient 16:08:29 CDT Tu Landeros MD [facility] CPT-32102 Level 3 Est. Patient 16:04:19 CDT Tu Landeros MD [facility] CPT-24402 Level 3 Est. Patient 11:22:30 CLINICAL LABORATORY SERVICE TEACHER Tu Landeros MD [facility] CPT-41502 Level 4 Est. Patient 16:24:02 CLINICAL LABORATORY SERVICE TEACHER Tu Landeros MD [facility] CPT-92710 Level 3 Est. Patient 17:21:23 CLINICAL LABORATORY SERVICE TEACHER Tu Landeros MD [facility] Procedures Code Procedure Name Date Entry Date Standard Description CPT-G0438 Initial Annual Wellness Exam 14:13:04 CDT CPT-86535 Breathing Tx 10:06:54 CLINICAL LABORATORY SERVICE TEACHER CPT-01164 Postop F/U Visit 10:02:45 CDT CPT-LR Lesion Removal 09:02:56 CDT CPT-JTINJ Asp/Joint Injection 15:51:27 CLINICAL LABORATORY SERVICE TEACHER CPT-OV Office Visit 15:52:02 CLINICAL LABORATORY SERVICE TEACHER CPT-OV Office Visit 15:45:11 CDT CPT-000 Give Zostavax 14:09:06 CDT CPT-47027 Administration single or combination vaccine inc oral 15 :19:04 CDT CPT-11196 Zoster Vaccine (Zostavax) 15:19:04 CDT CPT-30814 Administration single or combination vaccine inc oral 20 :51:03 CDT CPT-98561 Influenza split virus > age 3 20:51:03 CDT CPT-05740 No Charge Offi Visit 14:52:03 CDT CPT-OV Office Visit 14:57:43 CDT CPT-OV Office Visit 15:22:32 CDT CPT-14195 Administration single or combination vaccine inc oral 11 :33:15 CDT CPT-46106 Influenza split virus > age 3 11:33:15 CDT
--- OUTSIDE RECORDS SUMMARY | 2018-04-25 13:34 | XMS REPORT | Clinical Summary ---
Author Author Admin, SACHI Organization [facility] Address Unknown Phone Unavailable Allergies, Adverse Reactions, [...] MD Sciatica SHOULDER PAIN, LEFT 719.41 Resolved uT Landeros MD Pain in joint involving shoulder [...] MD Sinusitis - acute ICD-461.9 Inactive Tu Lanedros MD Leg pain, left ICD-729.5 Tessa Landeros MD Vision impairment, both eyes, impairment level not further specified ICD- 369.20 Tessa Landeros MD Medication List Medication Instructions Start Date Stop Date Generic Name NDC Status Provider Patient Instruction CYCLOBENZAPRINE HCL 10 MG ORAL TABS 1 po TID PRN Muscle Spasm CYCLOBENZAPRINE HCL 95225864888 Active Tu Landeros MD Active DICLOFENAC SODIUM 50 MG ORAL TBEC 1 po BID PRN Pain DICLOFENAC SODIUM 24141052417 Delores Landeros MD Active INVOKANA 100 MG ORAL TABS 1 po qd CANAGLIFLOZIN 11019189920 Active Tu Landeros MD Active GLIPIZIDE 5 MG ORAL TABS 1 po qd GLIPIZIDE 14991289560 No Longer Active Tu Landeros MD Active VENLAFAXINE HCL 75 MG ORAL TABS 1 po BID VENLAFAXINE HCL 82440481795 Active Tu Landeros MD Active GLIMEPIRIDE 1 MG ORAL TABS 1 po qd GLIMEPIRIDE 71997783631 No Longer Active Tu Landeros MD Active TRUE METRIX BLOOD GLUCOSE TEST INVITR STRP Test blood sugar BID Dx: E11.9 GLUCOSE BLOOD 92164792977 Active Tu Landeros MD Active TRUE METRIX AIR GLUCOSE METER W/DEVICE KIT Test blood glucose BID Dx: E11.9 BLOOD GLUCOSE MONITORING SUPPL 24360404278 Active Tu Landeros MD Active TRUETEST TEST INVITR STRP test blood sugar twice daily. DX 250.0 GLUCOSE BLOOD 99517824569 No Longer Active Mirna Stanley LPN Active TRUEDRAW LANCING DEVICE MISC test blood sugar twice daily dx: 250.00 LANCET DEVICES 93678673159 No Longer Active Mirna Stanley LPN Active ENALAPRIL MALEATE 20 MG TABS 2 po qd ENALAPRIL MALEATE 84078491638 Active Tu Landeros MD Active SUPER B COMPLEX/VITAMIN C TABS 1 qd B COMPLEX-C 18461718401 No Longer Active Tu Landeros MD Active ASPIRIN EC 81 MG ORAL TBEC 1 po qd ASPIRIN 22328192423 Active Tu Landeros MD Active GLUCOSAMINE 500 MG TABS 2 po qd GLUCOSAMINE Active Tu Landeros MD Active SIMVASTATIN 40 MG TABS 0.5 po qHS SIMVASTATIN 13343218278 Active Tu Landeros MD Active FISH OIL 1000 MG CAPS 1 po qd OMEGA-3 FATTY ACIDS 84497923112 Active Tu Landeros MD Active METFORMIN HCL 1000 MG TABS 1 po BID METFORMIN HCL 23357343455 Active Tu Landeros MD Active KLOR-CON 10 10 MEQ CR-TABS 2 po qd POTASSIUM CHLORIDE 54745513093 Active Tu Landeros MD Active FUROSEMIDE 40 MG TAB 1 po qd FUROSEMIDE 39726595523 Active Tu Landeros MD Active REQUIP 2 MG ORAL TABS 1 po qHS PRN Restless legs ROPINIROLE HCL 57207127955 Active Tu Landeros MD Active GABAPENTIN 100 MG CAPS 1 po BID GABAPENTIN 74627942978 Active Tu Landeros MD Active REQUIP 2 MG TABS Take one tablet at bedtime prn ROPINIROLE HCL 76603433147 No Longer Active Tu Landeros MD Active VENTOLIN HFA 108 (90 BASE) MCG/ACT AERS 1-2 puffs every 4 hours if needed for cough/congestion ALBUTEROL SULFATE 75275984273 No Longer Active Ambika Aden APRN Active ZITHROMAX 250 MG TAB 2 po today, then 1 po q days 2-5 AZITHROMYCIN 28293007466 No Longer Active Miranda Suresh APRN Active FLONASE 50 MCG/ACT SUSP 1 spray each nostril twice daily until bottle empty FLUTICASONE PROPIONATE 41478531225 No Longer Active Tu Landeros MD Active COLACE 100 MG CAP 1 po BID PRN Constipation DOCUSATE SODIUM 40197773041 Active Tu Landeros MD Active TRUERESULT BLOOD GLUCOSE W/DEVICE KIT test blood sugar twice daily dx 250.00 BLOOD GLUCOSE MONITORING SUPPL 03481971823 No Longer Active Tu Landeros MD Active TRUEDRAW LANCING DEVICE MISC Test twice a day dx 250.0 LANCET DEVICES 70420662024 No Longer Active Tu Landeros MD Active PREDNISONE 20 MG TAB 2 tablets once daily for 2 days, then 1 tablet once daily for 2 days PREDNISONE 10809600141 No Longer Active Tu Landeros MD Active DICLOFENAC SODIUM 50 MG TBEC 1 tablet by mouth three times a day as needed DICLOFENAC SODIUM 33804279557 No Longer Active Fab W Andrew DO Active EMBRACE BLOOD GLUCOSE TEST STRP test blood sugar twice daily DX 250.0 2014 GLUCOSE BLOOD 54440779446 No Longer Active Tu Landeros MD Active TRUETEST TEST STRP test blood sugar three times daily dx: 250.00 GLUCOSE BLOOD 41436444965 No Longer Active Suze VOGEL Active TRUERESULT BLOOD GLUCOSE W/DEVICE KIT use to test blood sugar tid dx: 250.00 BLOOD GLUCOSE MONITORING SUPPL 37199200500 No Longer Active Suze Hardenehart RMA Active ALIGN 4 MG CAPS 1 tid PROBIOTIC PRODUCT 01077005515 No Longer Active Shaun Sy MD Active CIPRO 500 MG TABS 1 bid x 14 days start 09-28-13 CIPROFLOXACIN HCL 02099991530 No Longer Active Shaun Sy MD Active TRAMADOL HCL 50 MG TABS 1-2 tablets every 6 hours as needed for pain TRAMADOL HCL 10000408461 Active Tu Landeros MD Active HYDROCODONE-ACETAMINOPHEN 5-325 MG TABS 1 tab by mouth every 6 hours as needed for pain HYDROCODONE-ACETAMINOPHEN 76093515956 No Longer Active Tu Landeros MD Active OMEPRAZOLE 20 MG CPDR 1 po q a.m. OMEPRAZOLE 30027224081 Active Lesli Kellogg APRN Active GABAPENTIN 100 MG CAPS 1 po bid GABAPENTIN 92536363153 No Longer Active Tu Landeros MD Active B-12 100 MCG TABS Take one by mouth daily CYANOCOBALAMIN 73069211734 No Longer Active Tu Landeros MD Active BACTRIM DS 800-160 MG TABS 1 bid x 14 day start 09-28-13 SULFAMETHOXAZOLE-TRIMETHOPRIM 03427286421 No Longer Active Tu Landeros MD Active CARVEDILOL 12.5 MG TABS 1 po BID CARVEDILOL 08065441948 Active Tu Landeros MD Active TRILIPIX 135 MG CPDR 1 q hs CHOLINE FENOFIBRATE 04524461789 Active Tu Landeros MD Active FENOFIBRATE 145 MG TABS 1 po qd FENOFIBRATE 24745995975 No Longer Active JASPREET Perez Active OMEPRAZOLE 20 MG TBEC 1 PO 30 MIN BEFORE 1ST MEAL OMEPRAZOLE 61941121503 No Longer Active JASPREET Perez Active SIMVASTATIN 40 MG TABS Take one by mouth daily SIMVASTATIN 70060911663 No Longer Active JASPREET Perez Active VENLAFAXINE HCL 75 MG TABS 1 po BID VENLAFAXINE HCL 98466725912 No Longer Active JASPREET Perez Active CIPRO 500 MG TAB 1 tablet by mouth twice daily CIPROFLOXACIN HCL 44208754724 No Longer Active Tu Landeros MD Active VENLAFAXINE HCL 37.5 MG TABS 1 po BID VENLAFAXINE HCL 35842616545 No Longer Active Suze Nicole [facility] Active LAMISIL 250 MG TAB 1 po qd TERBINAFINE HCL 93922993941 No Longer Active Tu Landeros MD Active LORTAB 5 5-500 MG TABS 1/2 to 1 tablet by mouth every 4 hours as needed for pain HYDROCODONE-ACETAMINOPHEN 18112319863 No Longer Active Tu Landeros MD Active HYDROCODONE-ACETAMINOPHEN 5-500 MG TABS take one po Q 4-6 hours prn HYDROCODONE-ACETAMINOPHEN 59549283719 No Longer Active Tu Landeros MD Active BACTRIM DS 800-160 MG TABS 1 po BID x 7 days SULFAMETHOXAZOLE-TRIMETHOPRIM 60490136639 No Longer Active Tu Landeros MD Active VENLAFAXINE HCL 75 MG TABS 1 po BID VENLAFAXINE HCL 60134029659 No Longer Active Elvira Cervantes MD PhD Active TRAMADOL HCL 50 MG TABS 1 tablets every 6 hours as needed for pain TRAMADOL HCL 07912234549 No Longer Active Tu Landeros MD Active ACCU-CHEK FASTCLIX LANCETS MISC Use to check bloodsugar three times daily as needed LANCETS 85173723671 No Longer Active Tu Landeros MD Active ACCU-CHEK KEYONA PLUS STRP Use for testing bloodsugars three times daily as needed GLUCOSE BLOOD 18100880318 No Longer Active Tu Landeros MD Active ACCU-CHEK KEYONA PLUS W/DEVICE KIT Use for testing bloodsugars three times daily as needed BLOOD GLUCOSE MONITORING SUPPL 37639499210 No Longer Active Tu Landeros MD Active SPIRONOLACTONE 25 MG TAB 0.5 tablet by mouth daily SPIRONOLACTONE 72374818170 No Longer Active Tu Landeros MD Active ALPRAZOLAM 0.5 MG TABS 1 tab every 6hrs as needed ALPRAZOLAM 47228065881 No Longer Active Tu Landeros MD Active AUGMENTIN 875-125 MG TAB 1 tab by mouth twice daily with food AMOXICILLIN-POT CLAVULANATE 42864705338 No Longer Active Tu Landeros MD Active PREDNISONE 20 MG TAB 2 tabs daily for 3 days, 1 tab daily for 3 days, 1/2 tab daily for 2 days PREDNISONE 37812527151 No Longer Active Tu Landeros MD Active XANAX 0.5 MG TABS 1 tablet every 6 hrs prn ALPRAZOLAM 82613339537 No Longer Active Tu Landeros MD Active PREDNISONE 20 MG TAB 2 tabs daily for 3 days, 1 tab daily for 3 days, 1/2 tab daily for 2 days PREDNISONE 51417805137 No Longer Active Tu Landeros MD Active TRIAMCINOLONE ACETONIDE 0.1 % OINT Apply to affected areas TID for up to 2 weeks TRIAMCINOLONE ACETONIDE 76580932865 No Longer Active Tu Landeros MD Active LORTAB 5 5-500 MG TABS 1/2 to 1 tablet by mouth every 4 hours as needed for pain HYDROCODONE-ACETAMINOPHEN 75861760798 No Longer Active Tu Landeros MD Active MULTIVITAMINS TABS Take one by mouth daily MULTIPLE VITAMIN 85837159307 No Longer Active Tu Landeros MD Active MELATONIN 5 MG TABS Take one by mouth daily MELATONIN 61065252367 No Longer Active Tu Landeros MD Active SOMA 350 MG TAB 1 po q 6 hours prn spasm CARISOPRODOL 23036221856 No Longer Active Tu Landeros MD Active MECLIZINE HCL 25 MG CHEW TAB 1 four times a day as needed for dizziness 08/05 MECLIZINE HCL 05994223705 No Longer Active Fab Morales DO Active ANGEL BREEZE 2 TEST DISK test tid prn GLUCOSE BLOOD 61699373730 No Longer Active Negra Scott RN Active REGLAN 10 MG TAB 1 po TID PRN Nausea METOCLOPRAMIDE HCL 18857288867 No Longer Active Tu Landeros MD Active METFORMIN HCL 500 MG TABS 1 PO BID METFORMIN HCL 34256911132 No Longer Active Tu Landeros MD Active AMBIEN 10 MG TAB 1 tab by mouth at bedtime as needed for sleep ZOLPIDEM TARTRATE 33306458246 No Longer Active Tu Landeros MD Active FLUOXETINE HCL 40 MG CAPS 1 po q day FLUOXETINE HCL 89185755566 No Longer Active Mayra Thedford Active TRILIPIX 135 MG CPDR 1 po qd CHOLINE FENOFIBRATE 84805935652 No Longer Active Tu Landeros MD Active AMBIEN 10 MG TAB 1 tab by mouth at bedtime as needed for sleep AMBIEN 10 MG TAB 614940 ZOLPIDEM TARTRATE Inactive METFORMIN HCL 500 MG TABS 1 PO BID METFORMIN HCL 500 MG TABS 744569 METFORMIN HCL Inactive REGLAN 10 MG TAB 1 po TID PRN Nausea REGLAN 10 MG TAB 475845 METOCLOPRAMIDE HCL Inactive MECLIZINE HCL 25 MG CHEW TAB 1 four times a day as needed for dizziness 08/05 MECLIZINE HCL 25 MG CHEW TAB 334667 MECLIZINE HCL Inactive SOMA 350 MG TAB 1 po q 6 hours prn spasm SOMA 350 MG TAB 734377 CARISOPRODOL Inactive MELATONIN 5 MG TABS Take one by mouth daily MELATONIN 5 MG TABS 714638 MELATONIN Inactive MULTIVITAMINS TABS Take one by mouth daily MULTIVITAMINS TABS MULTIPLE VITAMIN Inactive LORTAB 5 5-500 MG TABS 1/2 to 1 tablet by mouth every 4 hours as needed for pain LORTAB 5 5-500 MG TABS HYDROCODONE- ACETAMINOPHEN Inactive XANAX 0.5 MG TABS 1 tablet every 6 hrs prn XANAX 0.5 MG TABS 406794 ALPRAZOLAM Inactive AUGMENTIN 875-125 MG TAB 1 tab by mouth twice daily with food AUGMENTIN 875-125 MG TAB 531972 AMOXICILLIN-POT CLAVULANATE Inactive ALPRAZOLAM 0.5 MG TABS 1 tab every 6hrs as needed ALPRAZOLAM 0.5 MG TABS 848660 ALPRAZOLAM Inactive SPIRONOLACTONE 25 MG TAB 0.5 tablet by mouth daily SPIRONOLACTONE 25 MG TAB 034766 SPIRONOLACTONE Inactive ACCU-CHEK KEYONA PLUS W/DEVICE KIT Use for testing bloodsugars three times daily as needed ACCU-CHEK KEYONA PLUS W/DEVICE KIT BLOOD GLUCOSE MONITORING SUPPL Inactive ACCU-CHEK KEYONA PLUS STRP Use for testing bloodsugars three times daily as needed ACCU-CHEK KEYONA PLUS STRP GLUCOSE BLOOD Inactive ACCU-CHEK FASTCLIX LANCETS MISC Use to check bloodsugar three times daily as needed ACCU-CHEK FASTCLIX LANCETS MISC 58986108677 [facility] TRAMADOL HCL 50 MG TABS 1 tablets every 6 hours as needed for pain TRAMADOL HCL 50 MG TABS 206787 TRAMADOL HCL Inactive VENLAFAXINE HCL 75 MG TABS 1 po BID VENLAFAXINE HCL 75 MG TABS 802359 VENLAFAXINE HCL Inactive HYDROCODONE-ACETAMINOPHEN 5-500 MG TABS take one po Q 4-6 hours prn HYDROCODONE-ACETAMINOPHEN 5-500 MG TABS HYDROCODONE- ACETAMINOPHEN Inactive LORTAB 5 5-500 MG TABS 1/2 to 1 tablet by mouth every 4 hours as needed for pain LORTAB 5 5-500 MG TABS HYDROCODONE- ACETAMINOPHEN Inactive LAMISIL 250 MG TAB 1 po qd LAMISIL 250 MG TAB 977638 TERBINAFINE HCL Inactive VENLAFAXINE HCL 37.5 MG TABS 1 po BID VENLAFAXINE HCL 37.5 MG TABS 779609 VENLAFAXINE HCL Inactive CIPRO 500 MG TAB 1 tablet by mouth twice daily CIPRO 500 MG TAB 100326 CIPROFLOXACIN HCL Inactive VENLAFAXINE HCL 75 MG TABS 1 po BID VENLAFAXINE HCL 75 MG TABS 627973 VENLAFAXINE HCL Inactive SIMVASTATIN 40 MG TABS Take one by mouth daily SIMVASTATIN 40 MG TABS 076929 SIMVASTATIN Inactive OMEPRAZOLE 20 MG TBEC 1 PO 30 MIN BEFORE 1ST MEAL OMEPRAZOLE 20 MG TBEC 831221 OMEPRAZOLE Inactive FENOFIBRATE 145 MG TABS 1 po qd FENOFIBRATE 145 MG TABS 986421 FENOFIBRATE Inactive BACTRIM DS 800-160 MG TABS 1 bid x 14 day start 09-28-13 BACTRIM DS 800-160 MG TABS 799810 SULFAMETHOXAZOLE-TRIMETHOPRIM Inactive B-12 100 MCG TABS Take one by mouth daily B-12 100 MCG TABS CYANOCOBALAMIN Inactive GABAPENTIN 100 MG CAPS 1 po bid GABAPENTIN 100 MG CAPS 441748 GABAPENTIN Inactive HYDROCODONE-ACETAMINOPHEN 5-325 MG TABS 1 tab by mouth every 6 hours as needed for pain HYDROCODONE-ACETAMINOPHEN 5-325 MG TABS 010443 HYDROCODONE-ACETAMINOPHEN Inactive CIPRO 500 MG TABS 1 bid x 14 days start 09-28-13 CIPRO 500 MG TABS 046167 CIPROFLOXACIN HCL Inactive ALIGN 4 MG CAPS [...] as needed DICLOFENAC SODIUM 50 MG TBEC 474804 DICLOFENAC SODIUM Inactive PREDNISONE 20 MG TAB 2 tablets once daily for 2 days, then 1 tablet once daily for 2 days PREDNISONE 20 MG TAB 883798 PREDNISONE Inactive TRUEDRAW LANCING DEVICE MISC Test twice a day dx 250.0 TRUEDRAW LANCING DEVICE MISC LANCET DEVICES Inactive TRUERESULT BLOOD GLUCOSE W/DEVICE KIT test blood sugar twice daily dx 250.00 TRUERESULT BLOOD GLUCOSE W/DEVICE KIT BLOOD GLUCOSE MONITORING SUPPL Inactive FLONASE 50 MCG/ACT SUSP 1 spray each nostril twice daily until bottle empty FLONASE 50 MCG/ACT SUSP 9647265 FLUTICASONE PROPIONATE Inactive VENTOLIN HFA 108 (90 BASE) MCG/ACT AERS 1-2 puffs every 4 hours if needed for cough/congestion VENTOLIN HFA 108 (90 BASE) MCG/ACT AERS ALBUTEROL SULFATE Inactive REQUIP 2 MG TABS Take one tablet at bedtime prn REQUIP 2 MG TABS 543536 ROPINIROLE HCL Inactive SUPER B COMPLEX/VITAMIN C TABS 1 qd SUPER B COMPLEX/ VITAMIN C TABS 98449892035 B COMPLEX-C Inactive TRUEDRAW LANCING DEVICE MISC test blood sugar twice daily dx: 250.00 TRUEDRAW LANCING DEVICE MISC LANCET DEVICES Inactive TRUETEST TEST INVITR STRP test blood sugar twice daily. DX 250.0 TRUETEST TEST INVITR STRP GLUCOSE BLOOD Inactive TRIAMCINOLONE ACETONIDE 0.1 % OINT Apply to affected areas TID for up to 2 weeks TRIAMCINOLONE ACETONIDE 0.1 % OINT 6441818 TRIAMCINOLONE ACETONIDE Inactive PREDNISONE 20 MG TAB 2 tabs daily for 3 days, 1 tab daily for 3 days, 1/2 tab daily for 2 days PREDNISONE 20 MG TAB 206980 PREDNISONE Inactive PREDNISONE 20 MG TAB 2 tabs daily for 3 days, 1 tab daily for 3 days, 1/2 tab daily for 2 days PREDNISONE 20 MG TAB 501012 PREDNISONE Inactive BACTRIM DS 800-160 MG TABS 1 po BID x 7 days BACTRIM DS 800-160 MG TABS 954156 SULFAMETHOXAZOLE-TRIMETHOPRIM Inactive ZITHROMAX 250 MG TAB 2 po today, then 1 po q days 2-5 ZITHROMAX 250 MG TAB 0384370 AZITHROMYCIN Inactive Advance Directives Directive Description Start Date DISCUSSED WITH PATIENT -- NO DECISION MADE Immunizations Vaccine Administration Date Value Standard Description Seasonal influenza vaccine, injectable, containing preservative, for > 3 years old (Afluria, FluLaval, Fluzone, Fluvirin, Fluarix, Agriflu(>=18 yo)) Fluzone (>3 yrs.) [PTY606] Influenza, seasonal, injectable influenza immunization (Flu Vax) has been administered 02/22/2012 influenza virus vaccine, unspecified formulation Seasonal influenza vaccine, injectable, containing preservative, for > 3 years old (Afluria, FluLaval, Fluzone, Fluvirin, Fluarix, Agriflu(>=18 yo)) Fluzone (>3 yrs.) [[id number]] Influenza, seasonal, injectable Vital Signs Date Name Value Unit Range Description blood pressure, diastolic - 8462-4 64 mm[Hg] BP ac blood pressure, systolic - 8480-6 121 mm[Hg] BP sys height E&M - 8302-2 60.25 [in_us] Bdy height pulse rate E&M - 8867-4 69 /min Heart rate temperature E&M 97.8 [degF] Body temperature weight E&M - 3141-9 308.3 [lb_av] Weight Measured blood pressure, diastolic - 8462-4 73 mm[Hg] [...] Magnesium - Chemistry sodium, serum 143 mmol/L 072-869 7156/01/10 carbon dioxide, venous blood 28.0 mmol/L 21.0-32.0 potassium, serum 4.5 mmol/L 3.5-5.2 chloride, serum 104 mmol/L 98-107 blood glucose 158 mg/dL 65-110 urea nitrogen, blood 23 mg/dL 7-18 creatinine, serum 1.06 mg/dL 0.55-1.30 alanine aminotransferase (SGPT), serum 42 U/L 12-78 aspartate aminotransferase (SGOT), serum 32 U/L 15-37 calcium, serum 9.3 mg/dL 8.5-10.1 bilirubin, serum, total 0.20 mg/dL 0.00-1.00 cholesterol, serum 177 mg/dL 506-369 4492/01/10 triglyceride, serum, fasting 320 mg/dL 30-200 HDL cholesterol, serum 46 mg/dL 32-96 LDL cholesterol, serum 67 mg/dL 0-130 Lab Report: COMPREHENSIVE METABOLIC PANEL, LIPID PANEL, HEMOGLOBIN A1c - Chemistry cholesterol, serum 135 mg/dL 445-866 3391/05/17 HDL cholesterol, serum 41 mg/dL > OR=46 triglyceride, serum, fasting 206 mg/dL <150 LDL cholesterol, serum 53 MG/DL (CALC) mg/dL <130 cholesterol/HDL ratio, serum 3.3 (calc) < OR=5.0 Lab Report: HGBA1C - Chemistry hemoglobin A1C, blood, as % of total hemoglobin 7.4 % 4.3-6.0 sodium, serum 140 mmol/L 499-869 5682/09/07 potassium, serum 4.3 mmol/L 3.5-5.2 chloride, serum [...] <30 Encounters Code Encounter Date Provider Facility CPT-37212 Level 3 Est. Patient 13:33:09 CDT Tu Landeros MD [facility] CPT-30241 Level 4 Est. Patient 14:29:21 CDT Tu Landeros MD [facility] CPT-19173 Level 4 Est. Patient 09:08:17 MINE INSPECTOR Tu Landeros MD [facility] CPT-18230 Level 4 Est. Patient 14:40:19 CDT Tu Landeros MD [facility] CPT-36792 Level 4 Est. Patient 14:06:04 MINE INSPECTOR Tu Landeros MD [facility] CPT-95260 Level 3 Est. Patient 14:05:18 MINE INSPECTOR Tu Landeros MD [facility] CPT-98244 Level 3 Est. Patient 10:06:54 MINE INSPECTOR Miranda Suresh APRN [facility] CPT-65746 Level 4 Est. Patient 13:50:18 MINE INSPECTOR Tu Landeros MD [facility] CPT-43107 Level 3 Est. Patient 10:30:04 CDT Tu Landeros MD [facility] CPT-55750 Level 4 Est. Patient 11:03:38 CDT uT Landeros MD [facility] CPT-77866 Level 3 Est. Patient 10:20:44 CDT aFb Morales DO [facility] CPT-84123 Level 4 Est. Patient 14:38:57 CDT Tu Landeros MD [facility] CPT-08181 Level 4 Est. Patient 14:27:39 MINE INSPECTOR Tu Landeros MD [facility] CPT-48206 Level 4 Est. Patient 09:45:25 CDT Tu Landeros MD [facility] CPT-98533 Level 4 Est. Patient 09:05:20 MINE INSPECTOR Tu Landeros MD [facility] CPT-66776 Level 4 Est. Patient 14:09:06 CDT Tu Landeros MD [facility] CPT-86519 Level 3 Est. Patient 13:36:54 CDT Tu Landeros MD [facility] CPT-43718 Level 3 Est. Patient 08:59:14 CDT Tu Landeros MD [facility] CPT-83808 Level 3 Est. Patient 13:48:35 CDT Fab Morales DO [facility] CPT-96907 Level 4 Est. Patient 10:05:48 CDT Tu Landeros MD [facility] CPT-19451 Level 3 Est. Patient 13:38:42 CDT Marek BANKS [facility] CPT-60753 Level 5 Est. Patient 08:08:39 CDT Jerrica FRANCIS [facility] CPT-03670 Level 4 Est. Patient 14:23:38 CDT Tu Landeros MD [facility] CPT-93562 Level 3 Est. Patient 11:44:04 CDT Tu Landeros MD [facility] CPT-63974 Level 3 Est. Patient 11:03:20 MINE INSPECTOR Tu Landeros MD [facility] CPT-11764 Level 3 Est. Patient 11:03:14 MINE INSPECTOR Tu Landeros MD [facility] CPT-56340 Level 3 Est. Patient 12:42:49 CDT Tu Landeros MD [facility] CPT-96805 Level 3 Est. Patient 11:52:06 CDT Tu Landeros MD [facility] CPT-84815 Level 3 Est. Patient 13:58:11 CDT Tu Landeros MD [facility] CPT-71108 Level 3 Est. Patient 17:50:07 CDT Fab Morales DO [facility] CPT-57715 Level 3 Est. Patient 12:06:29 CDT Elvira Cervantes MD, PhD [facility] CPT-14215 Level 3 Est. Patient 15:50:32 CDT Tu Landeros MD [facility] CPT-09629 Level 4 Est. Patient 16:08:29 CDT Tu Landeros MD [facility] CPT-15949 Level 3 Est. Patient 16:04:19 CDT Tu Landeros MD [facility] CPT-04795 Level 3 Est. Patient 11:22:30 MINE INSPECTOR Tu Landeros MD [facility] CPT-40427 Level 4 Est. Patient 16:24:02 MINE INSPECTOR Tu Landeros MD [facility] CPT-60895 Level 3 Est. Patient 17:21:23 MINE INSPECTOR Tu Landeros MD [facility] Procedures Code Procedure Name Date Entry Date Standard Description CPT-50216 Shoulder, right, comp min 2V - XRAY USE ONLY 13:50:22 CDT CPT-G0009 Administration of Pneumococcal Vaccine 15:08:26 CDT CPT-67338 Prevnar 13 Intramuscular Suspension 15:08:26 CDT 10/08 CPT-G0439 Subsequent Annual Wellness Exam 14:29:22 CDT CPT-66400 Venipuncture Draw Fee 13:15:35 CDT CPT-28927 Magnesium - LAB USE ONLY 11:14:20 MINE INSPECTOR CPT-58755 Lipid - LAB USE ONLY 11:14:20 MINE INSPECTOR CPT-61661 HGBA1C - LAB USE ONLY 11:14:20 MINE INSPECTOR CPT-56054 CMP - LAB USE ONLY 11:14:19 MINE INSPECTOR CPT-04590 CBC - LAB USE ONLY 11:14:19 MINE INSPECTOR CPT-14351 Venipuncture Draw Fee 11:14:18 MINE INSPECTOR CPT-51694 First Vx - Ix admin for Medicare patients 16:46:52 CDT CPT-54268 Fluzone Preservative Free Intramuscular Suspension 16:46 :51 CDT CPT-88983 CBC - LAB USE ONLY 17:14:46 CDT CPT-58869 HGBA1C - LAB USE ONLY 17:14:46 CDT CPT-81899 Venipuncture Draw Fee 17:14:46 CDT CPT-G0438 Initial Annual Wellness Exam 14:13:04 CDT CPT-24883 Breathing Tx 10:06:54 MINE INSPECTOR CPT-49552 Postop F/U Visit 10:02:45 CDT CPT-LR Lesion Removal 09:02:56 CDT CPT-JTINJ Asp/Joint Injection 15:51:27 MINE INSPECTOR CPT-OV Office Visit 15:52:02 MINE INSPECTOR CPT-OV Office Visit 15:45:11 CDT CPT-000 Give Zostavax 14:09:06 CDT CPT-34608 Administration single or combination vaccine inc oral 15 :19:04 CDT CPT-82422 Zoster Vaccine (Zostavax) 15:19:04 CDT CPT-48588 Administration single or combination vaccine inc oral 20 :51:03 CDT CPT-49660 Influenza split virus > age 3 20:51:03 CDT CPT-12707 No Charge Offi Visit 14:52:03 CDT CPT-OV Office Visit 14:57:43 CDT CPT-OV Office Visit 15:22:32 CDT CPT-88480 Administration single or combination vaccine inc oral 11 :33:15 CDT CPT-80715 Influenza split virus > age 3 11:33:15 CDT
--- OUTSIDE RECORDS SUMMARY | 2018-04-25 13:35 | XMS REPORT | Clinical Summary ---
Author Author Admin, SACHI Organization [email or web address] Address Unknown Phone Unavailable Allergies, Adverse Reactions, [...] involving shoulder region PARESTHESIA 782.0 Resolved Tu Landeors MD Disturbance of skin sensation RASH AND [...] Sinusitis - acute 461.9 Active Miranda Suresh DATABASE REPORTING CONSULTANT Acute sinusitis, unspecified Leg pain, left 729.5 [...] MD ONYCHOMYCOSIS ICD-110.1 Inactive Tu Landeros MD BENIGN PAROXYSMAL POSITIONAL VERTIGO ICD-386.11 Inactive Tu Landeros MD Open wound of [...] hours if needed for cough/congestion ALBUTEROL SULFATE 48589697116 Active Miranda Suresh APRN Active ZITHROMAX 250 MG TAB 2 po today, then 1 po q days 2-5 AZITHROMYCIN 84270793630 No Longer Active Miranda Suresh APRN Active METFORMIN HCL 1000 MG TABS 1 tablet by mouth twice daily METFORMIN HCL 38403757482 Active Tu Landeros MD Active FLONASE 50 MCG/ACT SUSP 1 spray each nostril twice daily until bottle empty FLUTICASONE PROPIONATE 91280270118 No Longer Active Tu Landeros MD Active COLACE 100 MG CAP 1 po BID PRN Constipation DOCUSATE SODIUM 57486038974 Active Tu Landeros MD Active SIMVASTATIN 40 MG TABS 0.5 tab daily at bedtime SIMVASTATIN 42922157005 Active JASPREET Moffett Active TRUERESULT BLOOD GLUCOSE W/DEVICE KIT test blood sugar twice daily dx 250.00 BLOOD GLUCOSE MONITORING SUPPL 41955679493 No Longer Active Tu Landeros MD Active TRUEDRAW LANCING DEVICE MISC Test twice a day dx 250.0 LANCET DEVICES 58526446976 No Longer Active Tu Landeros MD Active PREDNISONE 20 MG TAB 2 tablets once daily for 2 days, then 1 tablet once daily for 2 days PREDNISONE 95173496178 No Longer Active Tu Landeros MD Active DICLOFENAC SODIUM 50 MG TBEC 1 tablet by mouth three times a day as needed DICLOFENAC SODIUM 28271949790 No Longer Active Fab Morales DO Active TRUEDRAW LANCING DEVICE MISC test blood sugar twice daily dx: 250.00 LANCET DEVICES 04934136058 Active Tu Landeros MD Active TRUETEST TEST INVITR STRP test blood sugar twice daily. DX 250.0 GLUCOSE BLOOD 00391088031 Active Tu Landeros MD Active EMBRACE BLOOD GLUCOSE TEST STRP test blood sugar twice daily DX 250.0 2014 GLUCOSE BLOOD 55668023554 No Longer Active Tu Landeros MD Active TRUETEST TEST STRP test blood sugar three times daily dx: 250.00 GLUCOSE BLOOD 23583436406 No Longer Active Suze VOGEL Active TRUERESULT BLOOD GLUCOSE W/DEVICE KIT use to test blood sugar tid dx: 250.00 BLOOD GLUCOSE MONITORING SUPPL 94410364607 No Longer Active Suzebianca VOGEL Active ALIGN 4 MG CAPS 1 tid PROBIOTIC PRODUCT 75977732452 No Longer Active Shaun Sy MD Active CIPRO 500 MG TABS 1 bid x 14 days start 09-28-13 CIPROFLOXACIN HCL 14636555118 No Longer Active Shaun Sy MD Active TRAMADOL HCL 50 MG TABS 1-2 tablets every 6 hours as needed for pain TRAMADOL HCL 09191609935 Active Simon Smith MD Active HYDROCODONE-ACETAMINOPHEN 5-325 MG TABS 1 tab by mouth every 6 hours as needed for pain HYDROCODONE-ACETAMINOPHEN 92065501999 No Longer Active Tu Landeros MD Active OMEPRAZOLE 20 MG CPDR 1 po q a.m. OMEPRAZOLE 23829737025 Active Tu Landeros MD Active GABAPENTIN 100 MG CAPS 1 po bid GABAPENTIN 28293019319 No Longer Active Tu Landeros MD Active B-12 100 MCG TABS Take one by mouth daily CYANOCOBALAMIN 60721797230 No Longer Active Tu Landeros MD Active GABAPENTIN 100 MG CAPS by mouth twice a day GABAPENTIN 59168411350 Active Tu Landeros MD Active BACTRIM DS 800-160 MG TABS 1 bid x 14 day start 09-28-13 SULFAMETHOXAZOLE-TRIMETHOPRIM 37601057641 No Longer Active Tu Landeros MD Active CARVEDILOL 12.5 MG TABS 1 po BID CARVEDILOL 79239698502 Active Tu aLnderos MD Active SUPER B COMPLEX/VITAMIN C TABS 1 qd B COMPLEX-C 00672714078 Active JASPREET Perez Active TRILIPIX 135 MG CPDR 1 q hs CHOLINE FENOFIBRATE 21208110733 Active Tu Landeros MD Active FENOFIBRATE 145 MG TABS 1 po qd FENOFIBRATE 22263760773 No Longer Active JASPREET Perez Active OMEPRAZOLE 20 MG TBEC 1 PO 30 MIN BEFORE 1ST MEAL OMEPRAZOLE 01432690329 No Longer Active JASPREET Perez Active SIMVASTATIN 40 MG TABS Take one by mouth daily SIMVASTATIN 66735070182 No Longer Active JASPREET Perez Active VENLAFAXINE HCL 37.5 MG TABS 1 bid VENLAFAXINE HCL 47563131799 Active Tu Landeros MD Active VENLAFAXINE HCL 75 MG TABS 1 po BID VENLAFAXINE HCL 81542354072 No Longer Active JASPREET Perez Active CIPRO 500 MG TAB 1 tablet by mouth twice daily CIPROFLOXACIN HCL 52676981317 No Longer Active Tu Landeros MD Active VENLAFAXINE HCL 37.5 MG TABS 1 po BID VENLAFAXINE HCL 06649357200 No Longer Active Suzebianca NUNOA Active LAMISIL 250 MG TAB 1 po qd TERBINAFINE HCL 70726891527 No Longer Active Tu Landeros MD Active LORTAB 5 5-500 MG TABS 1/2 to 1 tablet by mouth every 4 hours as needed for pain HYDROCODONE-ACETAMINOPHEN 83720689991 No Longer Active Tu Landeros MD Active ENALAPRIL MALEATE 20 MG TABS 1.5 po qd ENALAPRIL MALEATE 56220204773 Active Tu Landeros MD Active HYDROCODONE-ACETAMINOPHEN 5-500 MG TABS take one po Q 4-6 hours prn HYDROCODONE-ACETAMINOPHEN 72030326102 No Longer Active Tu Landeros MD Active BACTRIM DS 800-160 MG TABS 1 po BID x 7 days SULFAMETHOXAZOLE-TRIMETHOPRIM 42420827892 No Longer Active Tu Landeros MD Active VENLAFAXINE HCL 75 MG TABS 1 po BID VENLAFAXINE HCL 36298926932 No Longer Active Elvira Cervantes MD PhD Active TRAMADOL HCL 50 MG TABS 1 tablets every 6 hours as needed for pain TRAMADOL HCL 03463721309 No Longer Active Tu Landeros MD Active ACCU-CHEK FASTCLIX LANCETS MISC Use to check bloodsugar three times daily as needed LANCETS 85203690647 No Longer Active Tu Landeros MD Active ACCU-CHEK KEYONA PLUS STRP Use for testing bloodsugars three times daily as needed GLUCOSE BLOOD 90782369381 No Longer Active Tu Landeros MD Active ACCU-CHEK KEYONA PLUS W/DEVICE KIT Use for testing bloodsugars three times daily as needed BLOOD GLUCOSE MONITORING SUPPL 76263428696 No Longer Active Tu Landeros MD Active SPIRONOLACTONE 25 MG TAB 0.5 tablet by mouth daily SPIRONOLACTONE 83101699519 No Longer Active Tu Landeros MD Active ALPRAZOLAM 0.5 MG TABS 1 tab every 6hrs as needed ALPRAZOLAM 44387416522 No Longer Active Tu Landeros MD Active AUGMENTIN 875-125 MG TAB 1 tab by mouth twice daily with food AMOXICILLIN-POT CLAVULANATE 63733671168 No Longer Active Tu Landeros MD Active PREDNISONE 20 MG TAB 2 tabs daily for 3 days, 1 tab daily for 3 days, 1/2 tab daily for 2 days PREDNISONE 45962130775 No Longer Active Tu Landeros MD Active XANAX 0.5 MG TABS 1 tablet every 6 hrs prn ALPRAZOLAM 81113549600 No Longer Active Tu Landeros MD Active PREDNISONE 20 MG TAB 2 tabs daily for 3 days, 1 tab daily for 3 days, 1/2 tab daily for 2 days PREDNISONE 47861435830 No Longer Active Tu Landeros MD Active TRIAMCINOLONE ACETONIDE 0.1 % OINT Apply to affected areas TID for up to 2 weeks TRIAMCINOLONE ACETONIDE 98015217828 No Longer Active Tu Landeros MD Active LORTAB 5 5-500 MG TABS 1/2 to 1 tablet by mouth every 4 hours as needed for pain HYDROCODONE-ACETAMINOPHEN 13044880498 No Longer Active Tu Landeros MD Active MULTIVITAMINS TABS Take one by mouth daily MULTIPLE VITAMIN 87169162292 No Longer Active Tu Landeros MD Active MELATONIN 5 MG TABS Take one by mouth daily MELATONIN 58442972577 No Longer Active Tu Landeros MD Active SOMA 350 MG TAB 1 po q 6 hours prn spasm CARISOPRODOL 86403118017 No Longer Active Tu Landeros MD Active MECLIZINE HCL 25 MG CHEW TAB 1 four times a day as needed for dizziness 08/05 MECLIZINE HCL 93433125901 No Longer Active Fab Morales DO Active ANGEL BREEZE 2 TEST DISK test tid prn GLUCOSE BLOOD 27210261198 No Longer Active Negra Scott RN Active REGLAN 10 MG TAB 1 po TID PRN [place] METOCLOPRAMIDE HCL 01067555532 No Longer Active Tu Landeros MD Active METFORMIN HCL 500 MG TABS 1 PO BID METFORMIN HCL 80162385430 No Longer Active Tu Landeros MD Active AMBIEN 10 MG TAB 1 tab by mouth at bedtime as needed for sleep ZOLPIDEM TARTRATE 77597677779 No Longer Active Tu Landeros MD Active FLUOXETINE HCL 40 MG CAPS 1 po q day FLUOXETINE HCL 80811525430 No Longer Active Mayra Terry Active FISH OIL 1000 MG CAPS Take one by mouth daily OMEGA-3 FATTY ACIDS 55178380974 Active Tu Landeros MD Active GLUCOSAMINE 500 MG TABS Take 2 tab po qd GLUCOSAMINE 69376061553 Active Tu Landeros MD Active TRILIPIX 135 MG CPDR 1 po qd CHOLINE FENOFIBRATE 00244678243 No Longer Active Tu Landeros MD Active ASPIRIN 81 MG CHEW TAB 1 tablet by mouth daily ASPIRIN 92759357595 Active Tu Landeros MD Active FUROSEMIDE 40 MG TAB 1 tablet by mouth daily FUROSEMIDE 49718258155 Active Tu Landeros MD Active REQUIP 2 MG TABS Take one tablet at bedtime prn ROPINIROLE HCL 98999516811 Active Tu Landeros MD Active KLOR-CON 10 10 MEQ CR-TABS TAKE 2 TABS DAILY POTASSIUM CHLORIDE 82578591291 Active Tu Landeros MD Active AMBIEN 10 MG TAB 1 tab by mouth at bedtime as needed for sleep AMBIEN 10 MG TAB 357067 ZOLPIDEM TARTRATE Inactive METFORMIN HCL 500 MG TABS 1 PO BID METFORMIN HCL 500 MG TABS 506189 METFORMIN HCL Inactive REGLAN 10 MG TAB 1 po TID PRN Nausea REGLAN 10 MG TAB 879374 METOCLOPRAMIDE HCL Inactive MECLIZINE HCL 25 MG CHEW TAB 1 four times a day as needed for dizziness 08/05 MECLIZINE HCL 25 MG CHEW TAB 382541 MECLIZINE HCL Inactive SOMA 350 MG TAB 1 po q 6 hours prn spasm SOMA 350 MG TAB 233515 CARISOPRODOL Inactive MELATONIN 5 MG TABS Take one by mouth daily MELATONIN 5 MG TABS 440128 MELATONIN Inactive MULTIVITAMINS TABS Take one by mouth daily MULTIVITAMINS TABS MULTIPLE VITAMIN Inactive LORTAB 5 5-500 MG TABS 1/2 to 1 tablet by mouth every 4 hours as needed for pain LORTAB 5 5-500 MG TABS HYDROCODONE- ACETAMINOPHEN Inactive XANAX 0.5 MG TABS 1 tablet every 6 hrs prn XANAX 0.5 MG TABS 606895 ALPRAZOLAM Inactive AUGMENTIN 875-125 MG TAB 1 tab by mouth twice daily with food AUGMENTIN 875-125 MG TAB 038565 AMOXICILLIN-POT CLAVULANATE Inactive ALPRAZOLAM 0.5 MG TABS 1 tab every 6hrs as needed ALPRAZOLAM 0.5 MG TABS 565541 ALPRAZOLAM Inactive SPIRONOLACTONE 25 MG TAB 0.5 tablet by mouth daily SPIRONOLACTONE 25 MG TAB 600224 SPIRONOLACTONE Inactive ACCU-CHEK KEYONA PLUS W/DEVICE KIT Use for testing bloodsugars three times daily as needed ACCU-CHEK KEYONA PLUS W/DEVICE KIT BLOOD GLUCOSE MONITORING SUPPL Inactive ACCU-CHEK KEYONA PLUS STRP Use for testing bloodsugars three times daily as needed ACCU-CHEK KEYONA PLUS STRP GLUCOSE BLOOD Inactive ACCU-CHEK FASTCLIX LANCETS MISC Use to check bloodsugar three times daily as needed ACCU-CHEK FASTCLIX LANCETS MISC 44895999937 LANCETS Inactive TRAMADOL HCL 50 MG TABS 1 tablets every 6 hours as needed for pain TRAMADOL HCL 50 MG TABS 507905 TRAMADOL HCL Inactive VENLAFAXINE HCL 75 MG TABS 1 po BID VENLAFAXINE HCL 75 MG TABS 527773 VENLAFAXINE HCL Inactive HYDROCODONE-ACETAMINOPHEN 5-500 MG TABS take one po Q 4-6 hours prn HYDROCODONE-ACETAMINOPHEN 5-500 MG TABS HYDROCODONE- ACETAMINOPHEN Inactive LORTAB 5 5-500 MG TABS 1/2 to 1 tablet by mouth every 4 hours as needed for pain LORTAB 5 5-500 MG TABS HYDROCODONE- ACETAMINOPHEN Inactive LAMISIL 250 MG TAB 1 po qd LAMISIL 250 MG TAB 579615 TERBINAFINE HCL Inactive VENLAFAXINE HCL 37.5 MG TABS 1 po BID VENLAFAXINE HCL 37.5 MG TABS 491493 VENLAFAXINE HCL Inactive CIPRO 500 MG TAB 1 tablet by mouth twice daily CIPRO 500 MG TAB 208207 CIPROFLOXACIN HCL Inactive VENLAFAXINE HCL 75 MG TABS 1 po BID VENLAFAXINE HCL 75 MG TABS 806881 VENLAFAXINE HCL Inactive SIMVASTATIN 40 MG TABS Take one by mouth daily SIMVASTATIN 40 MG TABS 414649 SIMVASTATIN Inactive OMEPRAZOLE 20 MG TBEC 1 PO 30 MIN BEFORE 1ST MEAL OMEPRAZOLE 20 MG TBEC 326141 OMEPRAZOLE Inactive FENOFIBRATE 145 MG TABS 1 po qd FENOFIBRATE 145 MG TABS 935557 FENOFIBRATE Inactive BACTRIM DS 800-160 MG TABS 1 bid x 14 day start 09-28-13 BACTRIM DS 800-160 MG TABS 125142 SULFAMETHOXAZOLE-TRIMETHOPRIM Inactive B-12 100 MCG TABS Take one by mouth daily B-12 100 MCG TABS CYANOCOBALAMIN Inactive GABAPENTIN 100 MG CAPS 1 po bid GABAPENTIN 100 MG CAPS 097126 GABAPENTIN Inactive HYDROCODONE-ACETAMINOPHEN 5-325 MG TABS 1 tab by mouth every 6 hours as needed for pain HYDROCODONE-ACETAMINOPHEN 5-325 MG TABS 517905 HYDROCODONE-ACETAMINOPHEN Inactive CIPRO 500 MG TABS 1 bid x 14 days start 09-28-13 CIPRO 500 MG TABS 144263 CIPROFLOXACIN HCL Inactive ALIGN 4 MG CAPS [...] as needed DICLOFENAC SODIUM 50 MG TBEC 592397 DICLOFENAC SODIUM Inactive PREDNISONE 20 MG TAB 2 tablets once daily for 2 days, then 1 tablet once daily for 2 days PREDNISONE 20 MG TAB 745646 PREDNISONE Inactive TRUEDRAW LANCING DEVICE MISC Test [...] 2 weeks TRIAMCINOLONE ACETONIDE 0.1 % OINT 5531948 TRIAMCINOLONE ACETONIDE Inactive PREDNISONE 20 MG TAB 2 tabs daily for 3 days, 1 tab daily for 3 days, 1/2 tab daily for 2 days PREDNISONE 20 MG TAB 859714 PREDNISONE Inactive PREDNISONE 20 MG TAB 2 tabs daily for 3 days, 1 tab daily for 3 days, 1/2 tab daily for 2 days PREDNISONE 20 MG TAB 388826 PREDNISONE Inactive BACTRIM DS 800-160 MG TABS 1 po BID x 7 days BACTRIM DS 800-160 MG TABS 329497 SULFAMETHOXAZOLE-TRIMETHOPRIM Inactive ZITHROMAX 250 MG TAB 2 po today, then 1 po q days 2-5 ZITHROMAX 250 MG TAB 4816335 AZITHROMYCIN Inactive Immunizations Vaccine Administration Date Value Standard Description Seasonal influenza vaccine, injectable, containing preservative, for > 3 years old (Afluria, FluLaval, Fluzone, Fluvirin, Fluarix, Agriflu(>=18 yo)) Fluzone (>3 yrs.) [[id number]] Influenza, seasonal, injectable influenza immunization (Flu Vax) has been administered 02/22/2012 influenza virus vaccine, unspecified formulation Seasonal influenza vaccine, injectable, containing preservative, for > 3 years old (Afluria, FluLaval, Fluzone, Fluvirin, Fluarix, Agriflu(>=18 yo)) Fluzone (>3 yrs.) [[id number]] Influenza, seasonal, injectable Vital Signs Date Name [...] MICROALBUMIN - Chemistry sodium, serum 142 mmol/L 902-915 3649/10/08 potassium, serum 4.5 mmol/L 3.5-5.2 chloride, serum [...] 0.30 mg/dL 0.00-1.00 cholesterol, serum 111 mg/dL 034-182 1495/07/28 triglyceride, serum, fasting 177 mg/dL 30-200 HDL [...] Panel - Chemistry cholesterol, serum 124 mg/dL 012-710 8126/01/12 triglyceride, serum, fasting 135 mg/dL 30-200 HDL cholesterol, serum 41 mg/dL 32-96 LDL cholesterol, serum 56 mg/dL 0-130 sodium, serum 140 mmol/L 793-606 2272/01/12 carbon dioxide, venous blood 27.7 mmol/L 21.0-32.0 potassium, serum 4.5 mmol/L 3.5-5.2 chloride, serum 104 mmol/L 98-107 blood glucose 139 mg/dL 65-110 urea nitrogen, blood 16 mg/dL 7-18 alanine aminotransferase (SGPT), serum 32 U/L 12-78 aspartate aminotransferase (SGOT), serum 25 U/L 15-37 calcium, serum 9.1 mg/dL 8.5-10.1 bilirubin, serum, total 0.50 mg/dL 0.00-1.00 Encounters Code Encounter Date Provider Facility CPT-84616 Level 4 Est. Patient 14:06:04 AUDIOLOGY TECHNICIAN Tu Landeros MD [facility] CPT-59426 Level 3 Est. Patient 14:05:18 AUDIOLOGY TECHNICIAN Tu Landeros MD [facility] CPT-73582 Level 3 Est. Patient 10:06:54 AUDIOLOGY TECHNICIAN Miranda Suresh APRN [facility] CPT-47309 Level 4 Est. Patient 13:50:18 AUDIOLOGY TECHNICIAN Tu Landeros MD [facility] CPT-29298 Level 3 Est. Patient 10:30:04 CDT Tu Landeros MD [facility] CPT-17981 Level 4 Est. Patient 11:03:38 CDT Tu Landeros MD [facility] CPT-94954 Level 3 Est. Patient 10:20:44 CDT Fab Morales DO [facility] CPT-47583 Level 4 Est. Patient 14:38:57 CDT Tu Landeros MD [facility] CPT-82320 Level 4 Est. Patient 14:27:39 AUDIOLOGY TECHNICIAN Tu Landeros MD [facility] CPT-54768 Level 4 Est. Patient 09:45:25 CDT Tu Landeros MD [facility] CPT-88716 Level 4 Est. Patient 09:05:20 AUDIOLOGY TECHNICIAN Tu Landeros MD [facility] CPT-31088 Level 4 Est. Patient 14:09:06 CDT Tu Landeros MD [facility] CPT-97855 Level 3 Est. Patient 13:36:54 CDT Tu Landeros MD [facility] CPT-31359 Level 3 Est. Patient 08:59:14 CDT Tu Landeros MD [facility] CPT-06426 Level 3 Est. Patient 13:48:35 CDT Fab Morales DO [facility] CPT-52352 Level 4 Est. Patient 10:05:48 CDT Tu Landeros MD [facility] CPT-01500 Level 3 Est. Patient 13:38:42 CDT Marek BANKS [facility] CPT-59407 Level 5 Est. Patient 08:08:39 CDT Jerrica FRANCIS [facility] CPT-44319 Level 4 Est. Patient 14:23:38 CDT Tu Landeros MD [facility] CPT-56593 Level 3 Est. Patient 11:44:04 CDT Tu Landeros MD [facility] CPT-74350 Level 3 Est. Patient 11:03:20 AUDIOLOGY TECHNICIAN Tu Landeros MD [facility] CPT-76068 Level 3 Est. Patient 11:03:14 AUDIOLOGY TECHNICIAN Tu Landeros MD [facility] CPT-81510 Level 3 Est. Patient 12:42:49 CDT Tu Landeros MD [facility] CPT-00415 Level 3 Est. Patient 11:52:06 CDT Tu Landeros MD [facility] CPT-26028 Level 3 Est. Patient 13:58:11 CDT Tu Landeros MD [facility] CPT-53934 Level 3 Est. Patient 17:50:07 CDT Fab Morales DO [facility] CPT-46497 Level 3 Est. Patient 12:06:29 CDT Elvira Cervantes MD, PhD [facility] CPT-02595 Level 3 Est. Patient 15:50:32 CDT Tu Landeros MD [facility] CPT-96965 Level 4 Est. Patient 16:08:29 CDT Tu Landeros MD [facility] CPT-51915 Level 3 Est. Patient 16:04:19 CDT Tu Landeros MD [facility] CPT-56857 Level 3 Est. Patient 11:22:30 AUDIOLOGY TECHNICIAN Tu Landeros MD [facility] CPT-60588 Level 4 Est. Patient 16:24:02 AUDIOLOGY TECHNICIAN Tu Landeros MD [facility] CPT-35139 Level 3 Est. Patient 17:21:23 AUDIOLOGY TECHNICIAN Tu Landeros MD [facility] Procedures Code Procedure Name Date Entry Date Standard Description CPT-42107 Breathing Tx 10:06:54 AUDIOLOGY TECHNICIAN CPT-02703 Postop F/U Visit 10:02:45 CDT CPT-LR Lesion Removal 09:02:56 CDT CPT-JTINJ Asp/Joint Injection 15:51:27 AUDIOLOGY TECHNICIAN CPT-OV Office Visit 15:52:02 AUDIOLOGY TECHNICIAN CPT-OV Office Visit 15:45:11 CDT CPT-000 Give Zostavax 14:09:06 CDT CPT-06459 Administration single or combination vaccine inc oral 15 :19:04 CDT CPT-95100 Zoster Vaccine (Zostavax) 15:19:04 CDT CPT-41462 Administration single or combination vaccine inc oral 20 :51:03 CDT CPT-37873 Influenza split virus > age 3 20:51:03 CDT CPT-95573 No Charge Offi Visit 14:52:03 CDT CPT-OV Office Visit 14:57:43 CDT CPT-OV Office Visit 15:22:32 CDT CPT-26368 Administration single or combination vaccine inc oral 11 :33:15 CDT CPT-78759 Influenza split virus > age 3 11:33:15 CDT
--- OUTSIDE RECORDS SUMMARY | 2018-04-25 13:37 | XMS REPORT | Clinical Summary ---
Author Author Admin, SACHI Organization [employer] Address Unknown Phone Unavailable Allergies, Adverse Reactions, [...] MG TABS 1 po BID VENLAFAXINE HCL 28022194561 Active Tu Landeros MD Active GABAPENTIN 100 MG CAPS 1 po BID GABAPENTIN 62620109137 Active Tu Landeros MD Active REQUIP 2 MG TABS Take one tablet at bedtime prn ROPINIROLE HCL 41155983808 No Longer Active Tu Landeros MD Active VENTOLIN HFA 108 (90 BASE) MCG/ACT AERS 1-2 puffs every 4 hours if needed for cough/congestion ALBUTEROL SULFATE 08754845911 No Longer Active Ambika Aden APRN Active ZITHROMAX 250 MG TAB 2 po today, then 1 po q days 2-5 AZITHROMYCIN 57072720943 No Longer Active Miranda Suresh APRN Active METFORMIN HCL 1000 MG TABS 1 tablet by mouth twice daily METFORMIN HCL 95605955758 Active Tu Landeros MD Active FLONASE 50 MCG/ACT SUSP 1 spray each nostril twice daily until bottle empty FLUTICASONE PROPIONATE 52241094154 No Longer Active Tu Landeros MD Active COLACE 100 MG CAP 1 po BID PRN Constipation DOCUSATE SODIUM 54705808501 Active Tu Landeros MD Active SIMVASTATIN 40 MG TABS 0.5 tab daily at bedtime SIMVASTATIN 78714642827 Active Tu Landeros MD Active TRUERESULT BLOOD GLUCOSE W/DEVICE KIT test blood sugar twice daily dx 250.00 BLOOD GLUCOSE MONITORING SUPPL 92104359783 No Longer Active Tu Landeros MD Active TRUEDRAW LANCING DEVICE MISC Test twice a day dx 250.0 LANCET DEVICES 91026912752 No Longer Active Tu Landeros MD Active PREDNISONE 20 MG TAB 2 tablets once daily for 2 days, then 1 tablet once daily for 2 days PREDNISONE 30281414446 No Longer Active Tu Landeros MD Active DICLOFENAC SODIUM 50 MG TBEC 1 tablet by mouth three times a day as needed DICLOFENAC SODIUM 71063095038 No Longer Active Fab Morales DO Active TRUEDRAW LANCING DEVICE MISC test blood sugar twice daily dx: 250.00 LANCET DEVICES 00282213646 Active Tu Landeros MD Active TRUETEST TEST INVITR STRP test blood sugar twice daily. DX 250.0 GLUCOSE BLOOD 99589642716 Active Tu Landeros MD Active EMBRACE BLOOD GLUCOSE TEST STRP test blood sugar twice daily DX 250.0 2014 GLUCOSE BLOOD 95508285094 No Longer Active Tu Landeros MD Active TRUETEST TEST STRP test blood sugar three times daily dx: 250.00 GLUCOSE BLOOD 97331842478 No Longer Active Suzebianca VOGEL Active TRUERESULT BLOOD GLUCOSE W/DEVICE KIT use to test blood sugar tid dx: 250.00 BLOOD GLUCOSE MONITORING SUPPL 94811734703 No Longer Active Suze Corey RMA Active ALIGN 4 MG CAPS 1 tid PROBIOTIC PRODUCT 54397559416 No Longer Active Shaun Sy MD Active CIPRO 500 MG TABS 1 bid x 14 days start 09-28-13 CIPROFLOXACIN HCL 16893665647 No Longer Active Shaun Sy MD Active TRAMADOL HCL 50 MG TABS 1-2 tablets every 6 hours as needed for pain TRAMADOL HCL 22425498746 Active Tu Landeros MD Active HYDROCODONE-ACETAMINOPHEN 5-325 MG TABS 1 tab by mouth every 6 hours as needed for pain HYDROCODONE-ACETAMINOPHEN 48401622647 No Longer Active Tu Landeros MD Active OMEPRAZOLE 20 MG CPDR 1 po q a.m. OMEPRAZOLE 07823848866 Active Tu Landeros MD Active GABAPENTIN 100 MG CAPS 1 po bid GABAPENTIN 78770305386 No Longer Active Tu Landeros MD Active B-12 100 MCG TABS Take one by mouth daily CYANOCOBALAMIN 00642314283 No Longer Active Tu Landeros MD Active BACTRIM DS 800-160 MG TABS 1 bid x 14 day start 09-28-13 SULFAMETHOXAZOLE-TRIMETHOPRIM 50728793276 No Longer Active Tu Landeros MD Active CARVEDILOL 12.5 MG TABS 1 po BID CARVEDILOL 25743176210 Active Tu Landeros MD Active SUPER B COMPLEX/VITAMIN C TABS 1 qd B COMPLEX-C 48981757039 Active JASPREET Perez Active TRILIPIX 135 MG CPDR 1 q hs CHOLINE FENOFIBRATE 47532048173 Active Tu Landeros MD Active FENOFIBRATE 145 MG TABS 1 po qd FENOFIBRATE 71420813567 No Longer Active JASPREET Perez Active OMEPRAZOLE 20 MG TBEC 1 PO 30 MIN BEFORE 1ST MEAL OMEPRAZOLE 57283377462 No Longer Active JASPREET Perez Active SIMVASTATIN 40 MG TABS Take one by mouth daily SIMVASTATIN 25888500674 No Longer Active JASPREET Perez Active VENLAFAXINE HCL 75 MG TABS 1 po BID VENLAFAXINE HCL 40342617028 No Longer Active JASPREET Perez Active CIPRO 500 MG TAB 1 tablet by mouth twice daily CIPROFLOXACIN HCL 76826002844 No Longer Active Tu Landeros MD Active VENLAFAXINE HCL 37.5 MG TABS 1 po BID VENLAFAXINE HCL 22358378232 No Longer Active Suze Nicole RMA Active LAMISIL 250 MG TAB 1 po qd TERBINAFINE HCL 33783886522 No Longer Active Tu Landeros MD Active LORTAB 5 5-500 MG TABS 1/2 to 1 tablet by mouth every 4 hours as needed for pain HYDROCODONE-ACETAMINOPHEN 54388154148 No Longer Active Tu Landeros MD Active ENALAPRIL MALEATE 20 MG TABS 1.5 po qd ENALAPRIL MALEATE 61555000269 Active Tu Landeros MD Active HYDROCODONE-ACETAMINOPHEN 5-500 MG TABS take one po Q 4-6 hours prn HYDROCODONE-ACETAMINOPHEN 12177264479 No Longer Active Tu Landeros MD Active BACTRIM DS 800-160 MG TABS 1 po BID x 7 days SULFAMETHOXAZOLE-TRIMETHOPRIM 59872526371 No Longer Active Tu Landeros MD Active VENLAFAXINE HCL 75 MG TABS 1 po BID VENLAFAXINE HCL 70173918720 No Longer Active Elvira Cervantes MD PhD Active TRAMADOL HCL 50 MG TABS 1 tablets every 6 hours as needed for pain TRAMADOL HCL 62011107318 No Longer Active Tu Landeros MD Active ACCU-CHEK FASTCLIX LANCETS MISC Use to check bloodsugar three times daily as needed LANCETS 54391156581 No Longer Active Tu Landeros MD Active ACCU-CHEK KEYONA PLUS STRP Use for testing bloodsugars three times daily as needed GLUCOSE BLOOD 27010696481 No Longer Active Tu Landeros MD Active ACCU-CHEK KEYONA PLUS W/DEVICE KIT Use for testing bloodsugars three times daily as needed BLOOD GLUCOSE MONITORING SUPPL 76376939294 No Longer Active Tu Landeros MD Active SPIRONOLACTONE 25 MG TAB 0.5 tablet by mouth daily SPIRONOLACTONE 95383664131 No Longer Active Tu Landeros MD Active ALPRAZOLAM 0.5 MG TABS 1 tab every 6hrs as needed ALPRAZOLAM 45911176612 No Longer Active Tu Landeros MD Active AUGMENTIN 875-125 MG TAB 1 tab by mouth twice daily with food AMOXICILLIN-POT CLAVULANATE 69963382020 No Longer Active Tu Landeros MD Active PREDNISONE 20 MG TAB 2 tabs daily for 3 days, 1 tab daily for 3 days, 1/2 tab daily for 2 days PREDNISONE 52119193718 No Longer Active Tu Landeros MD Active XANAX 0.5 MG TABS 1 tablet every 6 hrs prn ALPRAZOLAM 34248849594 No Longer Active Tu Landeros MD Active PREDNISONE 20 MG TAB 2 tabs daily for 3 days, 1 tab daily for 3 days, 1/2 tab daily for 2 days PREDNISONE 23681015178 No Longer Active Tu Landeros MD Active TRIAMCINOLONE ACETONIDE 0.1 % OINT Apply to affected areas TID for up to 2 weeks TRIAMCINOLONE ACETONIDE 67230076442 No Longer Active Tu Landeros MD Active LORTAB 5 5-500 MG TABS 1/2 to 1 tablet by mouth every 4 hours as needed for pain HYDROCODONE-ACETAMINOPHEN 75260994705 No Longer Active Tu Landeros MD Active MULTIVITAMINS TABS Take one by mouth daily MULTIPLE VITAMIN 40001860974 No Longer Active Tu Landeros MD Active MELATONIN 5 MG TABS Take one by mouth daily MELATONIN 84705760984 No Longer Active Tu Landeros MD Active SOMA 350 MG TAB 1 po q 6 hours prn spasm CARISOPRODOL 82005177228 No Longer Active Tu Landeros MD Active MECLIZINE HCL 25 MG CHEW TAB 1 four times a day as needed for dizziness 08/05 MECLIZINE HCL 11148842225 No Longer Active Fab Morales DO Active ANGEL BREEZE 2 TEST DISK test tid prn GLUCOSE BLOOD 19879289869 No Longer Active Negra Scott RN Active REGLAN 10 MG TAB 1 po TID PRN [place] METOCLOPRAMIDE HCL 82005688842 No Longer Active Tu Landeros MD Active METFORMIN HCL 500 MG TABS 1 PO BID METFORMIN HCL 28412860629 No Longer Active Tu Landeros MD Active AMBIEN 10 MG TAB 1 tab by mouth at bedtime as needed for sleep ZOLPIDEM TARTRATE 30136672083 No Longer Active Tu Landeros MD Active FLUOXETINE HCL 40 MG CAPS 1 po q day FLUOXETINE HCL 22897103670 No Longer Active Mayra [place] Active FISH OIL 1000 MG CAPS Take one by mouth daily OMEGA-3 FATTY ACIDS 93551410283 Active Tu Landeros MD Active GLUCOSAMINE 500 MG TABS Take 2 tab po qd GLUCOSAMINE 62176032872 Active Tu Landeros MD Active TRILIPIX 135 MG CPDR 1 po qd CHOLINE FENOFIBRATE 37597162720 No Longer Active Tu Landeros MD Active ASPIRIN 81 MG CHEW TAB 1 tablet by mouth daily ASPIRIN 40838069944 Active Tu Landeros MD Active FUROSEMIDE 40 MG TAB 1 tablet by mouth daily FUROSEMIDE 61312243527 Active Tu Landeros MD Active KLOR-CON 10 10 MEQ CR-TABS TAKE 2 TABS DAILY POTASSIUM CHLORIDE 92733977234 Active Tu Landeros MD Active AMBIEN 10 MG TAB 1 tab by mouth at bedtime as needed for sleep AMBIEN 10 MG TAB 456893 ZOLPIDEM TARTRATE Inactive METFORMIN HCL 500 MG TABS 1 PO BID METFORMIN HCL 500 MG TABS 351441 METFORMIN HCL Inactive REGLAN 10 MG TAB 1 po TID PRN Nausea REGLAN 10 MG TAB 068779 METOCLOPRAMIDE HCL Inactive MECLIZINE HCL 25 MG CHEW TAB 1 four times a day as needed for dizziness 08/05 MECLIZINE HCL 25 MG CHEW TAB 466786 MECLIZINE HCL Inactive SOMA 350 MG TAB 1 po q 6 hours prn spasm SOMA 350 MG TAB 538664 CARISOPRODOL Inactive MELATONIN 5 MG TABS Take one by mouth daily MELATONIN 5 MG TABS 215135 MELATONIN Inactive MULTIVITAMINS TABS Take one by mouth daily MULTIVITAMINS TABS MULTIPLE VITAMIN Inactive LORTAB 5 5-500 MG TABS 1/2 to 1 tablet by mouth every 4 hours as needed for pain LORTAB 5 5-500 MG TABS HYDROCODONE- ACETAMINOPHEN Inactive XANAX 0.5 MG TABS 1 tablet every 6 hrs prn XANAX 0.5 MG TABS 614370 ALPRAZOLAM Inactive AUGMENTIN 875-125 MG TAB 1 tab by mouth twice daily with food AUGMENTIN 875-125 MG TAB 411860 AMOXICILLIN-POT CLAVULANATE Inactive ALPRAZOLAM 0.5 MG TABS 1 tab every 6hrs as needed ALPRAZOLAM 0.5 MG TABS 169212 ALPRAZOLAM Inactive SPIRONOLACTONE 25 MG TAB 0.5 tablet by mouth daily SPIRONOLACTONE 25 MG TAB 486108 SPIRONOLACTONE Inactive ACCU-CHEK KEYONA PLUS W/DEVICE KIT Use for testing bloodsugars three times daily as needed ACCU-CHEK KEYONA PLUS W/DEVICE KIT BLOOD GLUCOSE MONITORING SUPPL Inactive ACCU-CHEK KEYONA PLUS STRP Use for testing bloodsugars three times daily as needed ACCU-CHEK KEYONA PLUS STRP GLUCOSE BLOOD Inactive ACCU-CHEK FASTCLIX LANCETS MISC Use to check bloodsugar three times daily as needed ACCU-CHEK FASTCLIX LANCETS MISC 65231462776 [facility] TRAMADOL HCL 50 MG TABS 1 tablets every 6 hours as needed for pain TRAMADOL HCL 50 MG TABS 018053 TRAMADOL HCL Inactive VENLAFAXINE HCL 75 MG TABS 1 po BID VENLAFAXINE HCL 75 MG TABS 588112 VENLAFAXINE HCL Inactive HYDROCODONE-ACETAMINOPHEN 5-500 MG TABS take one po Q 4-6 hours prn HYDROCODONE-ACETAMINOPHEN 5-500 MG TABS HYDROCODONE- ACETAMINOPHEN Inactive LORTAB 5 5-500 MG TABS 1/2 to 1 tablet by mouth every 4 hours as needed for pain LORTAB 5 5-500 MG TABS HYDROCODONE- ACETAMINOPHEN Inactive LAMISIL 250 MG TAB 1 po qd LAMISIL 250 MG TAB 599624 TERBINAFINE HCL Inactive VENLAFAXINE HCL 37.5 MG TABS 1 po BID VENLAFAXINE HCL 37.5 MG TABS 086056 VENLAFAXINE HCL Inactive CIPRO 500 MG TAB 1 tablet by mouth twice daily CIPRO 500 MG TAB 852265 CIPROFLOXACIN HCL Inactive VENLAFAXINE HCL 75 MG TABS 1 po BID VENLAFAXINE HCL 75 MG TABS 917744 VENLAFAXINE HCL Inactive SIMVASTATIN 40 MG TABS Take one by mouth daily SIMVASTATIN 40 MG TABS 558595 SIMVASTATIN Inactive OMEPRAZOLE 20 MG TBEC 1 PO 30 MIN BEFORE 1ST MEAL OMEPRAZOLE 20 MG TBEC 126146 OMEPRAZOLE Inactive FENOFIBRATE 145 MG TABS 1 po qd FENOFIBRATE 145 MG TABS 908615 FENOFIBRATE Inactive BACTRIM DS 800-160 MG TABS 1 bid x 14 day start 09-28-13 BACTRIM DS 800-160 MG TABS 959744 SULFAMETHOXAZOLE-TRIMETHOPRIM Inactive B-12 100 MCG TABS Take one by mouth daily B-12 100 MCG TABS CYANOCOBALAMIN Inactive GABAPENTIN 100 MG CAPS 1 po bid GABAPENTIN 100 MG CAPS 150283 GABAPENTIN Inactive HYDROCODONE-ACETAMINOPHEN 5-325 MG TABS 1 tab by mouth every 6 hours as needed for pain HYDROCODONE-ACETAMINOPHEN 5-325 MG TABS 863593 HYDROCODONE-ACETAMINOPHEN Inactive CIPRO 500 MG TABS 1 bid x 14 days start 814 CIPRO 500 MG TABS 931430 CIPROFLOXACIN HCL Inactive ALIGN 4 MG CAPS [...] as needed DICLOFENAC SODIUM 50 MG TBEC 537509 DICLOFENAC SODIUM Inactive PREDNISONE 20 MG TAB 2 tablets once daily for 2 days, then 1 tablet once daily for 2 days PREDNISONE 20 MG TAB 294260 PREDNISONE Inactive TRUEDRAW LANCING DEVICE MISC Test [...] at bedtime prn REQUIP 2 MG TABS 323381 ROPINIROLE HCL Inactive TRIAMCINOLONE ACETONIDE 0.1 % OINT Apply to affected areas TID for up to 2 weeks TRIAMCINOLONE ACETONIDE 0.1 % OINT 4377623 TRIAMCINOLONE ACETONIDE Inactive PREDNISONE 20 MG TAB 2 tabs daily for 3 days, 1 tab daily for 3 days, 1/2 tab daily for 2 days PREDNISONE 20 MG TAB 457875 PREDNISONE Inactive PREDNISONE 20 MG TAB 2 tabs daily for 3 days, 1 tab daily for 3 days, 1/2 tab daily for 2 days PREDNISONE 20 MG TAB 666594 PREDNISONE Inactive BACTRIM DS 800-160 MG TABS 1 po BID x 7 days BACTRIM DS 800-160 MG TABS 620690 SULFAMETHOXAZOLE-TRIMETHOPRIM Inactive ZITHROMAX 250 MG TAB 2 po today, then 1 po q days 2-5 ZITHROMAX 250 MG TAB 7492342 AZITHROMYCIN Inactive Advance Directives Directive Description Start Date DISCUSSED WITH PATIENT -- NO DECISION MADE Immunizations Vaccine Administration Date Value Standard Description Seasonal influenza vaccine, injectable, containing preservative, for > 3 years old (Afluria, FluLaval, Fluzone, Fluvirin, Fluarix, Agriflu(>=18 yo)) Fluzone (>3 yrs.) [[id number]] Influenza, seasonal, injectable influenza immunization (Flu Vax) has been administered 02/22/2012 influenza virus vaccine, unspecified formulation Seasonal influenza vaccine, injectable, containing preservative, for > 3 years old (Afluria, FluLaval, Fluzone, Fluvirin, Fluarix, Agriflu(>=18 yo)) Fluzone (>3 yrs.) [MIY065] Influenza, seasonal, injectable Vital Signs Date Name [...] 7.4 % 4.3-6.0 sodium, serum 140 mmol/L 231-784 3049/09/07 potassium, serum 4.3 mmol/L 3.5-5.2 chloride, serum 104 mmol/L 98-107 carbon dioxide, venous blood 27.7 mmol/L 21.0-32.0 blood glucose 156 mg/dL 65-110 calcium, serum 9.3 mg/dL 8.5-10.1 urea nitrogen, blood 23 mg/dL - creatinine, serum 1.21 mg/dL 0.55-1.30 hemoglobin A1C, blood, as % of total hemoglobin 7.7 % 4.3-6.0 Lab Report: Lipid Panel, Comp. Metabolic Panel - Chemistry urea nitrogen, blood 16 mg/dL 7-18 alanine aminotransferase (SGPT), serum 32 U/L 12-78 aspartate aminotransferase (SGOT), serum 25 U/L 15-37 calcium, serum 9.1 mg/dL 8.5-10.1 bilirubin, serum, total 0.50 mg/dL 0.00-1.00 LDL cholesterol, serum 56 mg/dL 0-130 HDL cholesterol, serum 41 mg/dL 32-96 triglyceride, serum, fasting 135 mg/dL 30-200 cholesterol, serum 124 mg/dL 145-051 8454/01/12 blood glucose 139 mg/dL 65-110 chloride, serum 104 mmol/L 98-107 potassium, serum 4.5 mmol/L 3.5-5.2 carbon dioxide, venous blood 27.7 mmol/L 21.0-32.0 sodium, serum 140 mmol/L 136-145 Encounters Code Encounter Date Provider Facility CPT-04906 Level 4 Est. Patient 14:40:19 CDT Tu Landeros MD [facility] CPT-35841 Level 4 Est. Patient 14:06:04 [employer] Tu Landeros MD [facility] CPT-46785 Level 3 Est. Patient 14:05:18 [employer] Tu Landeros MD [facility] CPT-02058 Level 3 Est. Patient 10:06:54 [employer] [facility] Level [facility] Est. Patient 13:50:18 [employer] Tu Landeros MD [facility] CPT-15141 Level 3 Est. Patient 10:30:04 CDT Tu Landeros MD [facility] CPT-41742 Level 4 Est. Patient 11:03:38 CDT Tu Landeros MD [facility] CPT-31636 Level 3 Est. Patient 10:20:44 CDT Fab Morales DO [facility] CPT-46438 Level 4 Est. Patient 14:38:57 CDT Tu Landeros MD [facility] CPT-40168 Level 4 Est. Patient 14:27:39 [employer] Tu Landeros MD [facility] CPT-68703 Level 4 Est. Patient 09:45:25 CDT Tu Landeros MD [facility] CPT-80764 Level 4 Est. Patient 09:05:20 [employer] Tu Landeros MD [facility] CPT-32674 Level 4 Est. Patient 14:09:06 CDT Tu Landeros MD [facility] CPT-15768 Level 3 Est. Patient 13:36:54 CDT Tu Landeros MD [facility] CPT-93778 Level 3 Est. Patient 08:59:14 CDT Tu Landerso MD [facility] CPT-28210 Level 3 Est. Patient 13:48:35 CDT Fab Morales DO [facility] CPT-43990 Level 4 Est. Patient 10:05:48 CDT Tu Landeros MD [facility] CPT-16162 Level 3 Est. Patient 13:38:42 CDT Marek BANKS [facility] CPT-07111 Level 5 Est. Patient 08:08:39 CDT Jerrica FRANCIS [facility] CPT-93467 Level 4 Est. Patient 14:23:38 CDT Tu Landeros MD [facility] CPT-84274 Level 3 Est. Patient 11:44:04 CDT Tu Landeros MD [facility] CPT-72650 Level 3 Est. Patient 11:03:20 [employer] Tu Landeros MD [facility] CPT-90467 Level 3 Est. Patient 11:03:14 [employer] Tu Landeros MD [facility] CPT-32708 Level 3 Est. Patient 12:42:49 CDT uT Landeros MD [facility] CPT-48996 Level 3 Est. Patient 11:52:06 CDT Tu Landeros MD [facility] CPT-83615 Level 3 Est. Patient 13:58:11 CDT Tu Landeros MD [facility] CPT-68772 Level 3 Est. Patient 17:50:07 CDT Fab Morales DO [facility] CPT-35733 Level 3 Est. Patient 12:06:29 CDT Elvira Cervantes MD PhD [facility] CPT-65442 Level 3 Est. Patient 15:50:32 CDT Tu Landeros MD [facility] CPT-44225 Level 4 Est. Patient 16:08:29 CDT Tu Landeros MD [facility] CPT-48976 Level 3 Est. Patient 16:04:19 CDT Tu Landeros MD [facility] CPT-37135 Level 3 Est. Patient 11:22:30 [employer] Tu Landeros MD [facility] CPT-82138 Level 4 Est. Patient 16:24:02 [employer] Tu Landeros MD [facility] CPT-91320 Level 3 Est. Patient 17:21:23 [employer] Tu Landeros MD [facility] Procedures Code Procedure Name Date Entry Date Standard Description CPT-69820 First Vx - Ix admin for Medicare patients 16:46:52 CDT CPT-87939 Fluzone Preservative Free Intramuscular Suspension 16:46 :51 CDT CPT-81696 CBC - LAB USE ONLY 17:14:46 CDT CPT-37557 HGBA1C - LAB USE ONLY 17:14:46 CDT CPT-99287 Venipuncture Draw Fee 17:14:46 CDT CPT-G0438 Initial Annual Wellness Exam 14:13:04 CDT CPT-90559 Breathing Tx 10:06:54 [employer] CPT-12073 Postop F/U Visit 10:02:45 CDT CPT-LR Lesion Removal 09:02:56 CDT CPT-JTINJ Asp/Joint Injection 15:51:27 [employer] CPT-OV Office Visit 15:52:02 [employer] CPT-OV Office Visit 15:45:11 CDT CPT-000 Give Zostavax 14:09:06 CDT CPT-17109 Administration single or combination vaccine inc oral 15 :19:04 CDT CPT-10071 Zoster Vaccine (Zostavax) 15:19:04 CDT CPT-78792 Administration single or combination vaccine inc oral 20 :51:03 CDT CPT-62399 Influenza split virus > age 3 20:51:03 CDT CPT-47818 No Charge Offi Visit 14:52:03 CDT CPT-OV Office Visit 14:57:43 CDT CPT-OV Office Visit 15:22:32 CDT CPT-65883 Administration single or combination vaccine inc oral 11 :33:15 CDT CPT-87428 Influenza split virus > age 3 11:33:15 CDT
--- OUTSIDE RECORDS SUMMARY | 2018-04-25 13:38 | XMS REPORT | Clinical Summary ---
Author Author Admin, SACHI Clemons [facility] Address Unknown Phone Unavailable Allergies, Adverse Reactions, [...] tablet by mouth twice daily METFORMIN HCL 97957328009 Active Tu Landeros MD Active FLONASE 50 MCG/ACT SUSP 1 spray each nostril twice daily until bottle empty FLUTICASONE PROPIONATE 19832279135 No Longer Active Tu Landeros MD Active COLACE 100 MG CAP 1 po BID PRN Constipation DOCUSATE SODIUM 25546784317 Active Tu Landeros MD Active SIMVASTATIN 40 MG TABS 0.5 tab daily at bedtime SIMVASTATIN 72055634650 Active Tu Landeros MD Active TRUERESULT BLOOD GLUCOSE W/DEVICE KIT test blood sugar twice daily dx 250.00 BLOOD GLUCOSE MONITORING SUPPL 80453597026 No Longer Active Tu Landeros MD Active TRUEDRAW LANCING DEVICE MISC Test twice a day dx 250.0 LANCET DEVICES 74873066162 No Longer Active Tu Landeros MD Active PREDNISONE 20 MG TAB 2 tablets once daily for 2 days, then 1 tablet once daily for 2 days PREDNISONE 37055596750 No Longer Active Tu Landeros MD Active DICLOFENAC SODIUM 50 MG TBEC 1 tablet by mouth three times a day as needed DICLOFENAC SODIUM 51719914041 No Longer Active Fab Morales DO Active TRUEDRAW LANCING DEVICE MISC test blood sugar twice daily dx: 250.00 LANCET DEVICES 84956798766 Active Tu Landeros MD Active TRUETEST TEST INVITR STRP test blood sugar twice daily. DX 250.0 GLUCOSE BLOOD 62213792073 Active Tu Landeros MD Active EMBRACE BLOOD GLUCOSE TEST STRP test blood sugar twice daily DX 250.0 2014 GLUCOSE BLOOD 75011706746 No Longer Active Tu Landeros MD Active TRUETEST TEST STRP test blood sugar three times daily dx: 250.00 GLUCOSE BLOOD 13209624508 No Longer Active Suze VOGEL Active TRUERESULT BLOOD GLUCOSE W/DEVICE KIT use to test blood sugar tid dx: 250.00 BLOOD GLUCOSE MONITORING SUPPL 26402496303 No Longer Active Suze Nicole RMA Active ALIGN 4 MG CAPS 1 tid PROBIOTIC PRODUCT 16651832333 No Longer Active Shaun Sy MD Active CIPRO 500 MG TABS 1 bid x 14 days start 09-28-13 CIPROFLOXACIN HCL 45984148893 No Longer Active Sahun Sy MD Active TRAMADOL HCL 50 MG TABS 1-2 tablets every 6 hours as needed for pain TRAMADOL HCL 49641917958 Active Tu Landeros MD Active HYDROCODONE-ACETAMINOPHEN 5-325 MG TABS 1 tab by mouth every 6 hours as needed for pain HYDROCODONE-ACETAMINOPHEN 19259926712 No Longer Active Tu Landeros MD Active OMEPRAZOLE 20 MG CPDR 1 po q a.m. OMEPRAZOLE 98399673512 Active Tu Landeros MD Active GABAPENTIN 100 MG CAPS 1 po bid GABAPENTIN 50332012920 No Longer Active Tu Landeros MD Active B-12 100 MCG TABS Take one by mouth daily CYANOCOBALAMIN 06402986779 No Longer Active Tu Landeros MD Active GABAPENTIN 100 MG CAPS by mouth twice a day GABAPENTIN 59974395597 Active Tu Landeros MD Active BACTRIM DS 800-160 MG TABS 1 bid x 14 day start 09-28-13 SULFAMETHOXAZOLE-TRIMETHOPRIM 40634403792 No Longer Active Tu Landeros MD Active CARVEDILOL 12.5 MG TABS 1 po BID CARVEDILOL 48759369292 Active Tu Landeros MD Active SUPER B COMPLEX/VITAMIN C TABS 1 qd B COMPLEX-C 87906385121 Active JASPREET Perez Active TRILIPIX 135 MG CPDR 1 q hs CHOLINE FENOFIBRATE 07806387165 Active Tu Landeros MD Active FENOFIBRATE 145 MG TABS 1 po qd FENOFIBRATE 60055947218 No Longer Active JASPREET Perez Active OMEPRAZOLE 20 MG TBEC 1 PO 30 MIN BEFORE 1ST MEAL OMEPRAZOLE 85582309319 No Longer Active JASPREET Perez Active SIMVASTATIN 40 MG TABS Take one by mouth daily SIMVASTATIN 31502448056 No Longer Active Gustavo JASPREET Green Active VENLAFAXINE HCL 37.5 MG TABS 1 bid VENLAFAXINE HCL 71517765564 Active Tu Landeros MD Active VENLAFAXINE HCL 75 MG TABS 1 po BID VENLAFAXINE HCL 29664071747 No Longer Active JASPREET Perez Active CIPRO 500 MG TAB 1 tablet by mouth twice daily CIPROFLOXACIN HCL 51142406456 No Longer Active Tu Landeros MD Active VENLAFAXINE HCL 37.5 MG TABS 1 po BID VENLAFAXINE HCL 80970372676 No Longer Active Suzebianca NUNOA Active LAMISIL 250 MG TAB 1 po qd TERBINAFINE HCL 64794105816 No Longer Active Tu Landeros MD Active LORTAB 5 5-500 MG TABS 1/2 to 1 tablet by mouth every 4 hours as needed for pain HYDROCODONE-ACETAMINOPHEN 74044572475 No Longer Active Tu Landeros MD Active ENALAPRIL MALEATE 20 MG TABS 1.5 po qd ENALAPRIL MALEATE 57696080290 Active Tu Landeros MD Active HYDROCODONE-ACETAMINOPHEN 5-500 MG TABS take one po Q 4-6 hours prn HYDROCODONE-ACETAMINOPHEN 95993954427 No Longer Active Tu Landeros MD Active BACTRIM DS 800-160 MG TABS 1 po BID x 7 days SULFAMETHOXAZOLE-TRIMETHOPRIM 29200772414 No Longer Active Tu Landeros MD Active VENLAFAXINE HCL 75 MG TABS 1 po BID VENLAFAXINE HCL 88812870673 No Longer Active Elvira Cervantes MD PhD Active TRAMADOL HCL 50 MG TABS 1 tablets every 6 hours as needed for pain TRAMADOL HCL 34183529574 No Longer Active Tu Landeros MD Active ACCU-CHEK FASTCLIX LANCETS MISC Use to check bloodsugar three times daily as needed LANCETS 42842414744 No Longer Active Tu Landeros MD Active ACCU-CHEK KEYONA PLUS STRP Use for testing bloodsugars three times daily as needed GLUCOSE BLOOD 45759372853 No Longer Active Tu Landeros MD Active ACCU-CHEK KEYONA PLUS W/DEVICE KIT Use for testing bloodsugars three times daily as needed BLOOD GLUCOSE MONITORING SUPPL 10151708619 No Longer Active Tu Landeros MD Active SPIRONOLACTONE 25 MG TAB 0.5 tablet by mouth daily SPIRONOLACTONE 30689008481 No Longer Active Tu Landeros MD Active ALPRAZOLAM 0.5 MG TABS 1 tab every 6hrs as needed ALPRAZOLAM 86107674734 No Longer Active Tu Landeros MD Active AUGMENTIN 875-125 MG TAB 1 tab by mouth twice daily with food AMOXICILLIN-POT CLAVULANATE 39301502069 No Longer Active Tu Landeros MD Active PREDNISONE 20 MG TAB 2 tabs daily for 3 days, 1 tab daily for 3 days, 1/2 tab daily for 2 days PREDNISONE 42222192872 No Longer Active Tu Landeros MD Active XANAX 0.5 MG TABS 1 tablet every 6 hrs prn ALPRAZOLAM 79450034448 No Longer Active Tu Landeros MD Active PREDNISONE 20 MG TAB 2 tabs daily for 3 days, 1 tab daily for 3 days, 1/2 tab daily for 2 days PREDNISONE 93007049996 No Longer Active Tu Landeros MD Active TRIAMCINOLONE ACETONIDE 0.1 % OINT Apply to affected areas TID for up to 2 weeks TRIAMCINOLONE ACETONIDE 35613067681 No Longer Active Tu Landeros MD Active LORTAB 5 5-500 MG TABS 1/2 to 1 tablet by mouth every 4 hours as needed for pain HYDROCODONE-ACETAMINOPHEN 77914725674 No Longer Active Tu Landeros MD Active MULTIVITAMINS TABS Take one by mouth daily MULTIPLE VITAMIN 46348630249 No Longer Active Tu Landeros MD Active MELATONIN 5 MG TABS Take one by mouth daily MELATONIN 00154855748 No Longer Active Tu Landeros MD Active SOMA 350 MG TAB 1 po q 6 hours prn spasm CARISOPRODOL 82506044522 No Longer Active Tu Landeros MD Active MECLIZINE HCL 25 MG CHEW TAB 1 four times a day as needed for dizziness 08/05 MECLIZINE HCL 98415693142 No Longer Active Fab Morales DO Active ANGEL BREEZE 2 TEST DISK test tid prn GLUCOSE BLOOD 48997105154 No Longer Active Negra Scott RN Active REGLAN 10 MG TAB 1 po TID PRN [place] METOCLOPRAMIDE HCL 73443738108 No Longer Active Tu Landeros MD Active METFORMIN HCL 500 MG TABS 1 PO BID METFORMIN HCL 65528804682 No Longer Active Tu Landeros MD Active AMBIEN 10 MG TAB 1 tab by mouth at bedtime as needed for sleep ZOLPIDEM TARTRATE 02349142552 No Longer Active Tu Landeros MD Active FLUOXETINE HCL 40 MG CAPS 1 po q day FLUOXETINE HCL 05381103663 No Longer Active Mayra [place] Active FISH OIL 1000 MG CAPS Take one by mouth daily OMEGA-3 FATTY ACIDS 57881868450 Active Tu Landeros MD Active GLUCOSAMINE 500 MG TABS Take 2 tab po qd GLUCOSAMINE 19583040235 Active Tu Landeros MD Active TRILIPIX 135 MG CPDR 1 po qd CHOLINE FENOFIBRATE 15102364215 No Longer Active Tu Landeros MD Active ASPIRIN 81 MG CHEW TAB 1 tablet by mouth daily ASPIRIN 83101316192 Active Tu Landeros MD Active FUROSEMIDE 40 MG TAB 1 tablet by mouth daily FUROSEMIDE 79990333107 Active Tu Landeros MD Active REQUIP 2 MG TABS Take one tablet at bedtime prn ROPINIROLE HCL 77324726566 Active Tu Landeros MD Active KLOR-CON 10 10 MEQ CR-TABS TAKE 2 TABS DAILY POTASSIUM CHLORIDE 73871422278 Active Tu Landeros MD Active AMBIEN 10 MG TAB 1 tab by mouth at bedtime as needed for sleep AMBIEN 10 MG TAB 842240 ZOLPIDEM TARTRATE Inactive METFORMIN HCL 500 MG TABS 1 PO BID METFORMIN HCL 500 MG TABS 385099 METFORMIN HCL Inactive REGLAN 10 MG TAB 1 po TID PRN Nausea REGLAN 10 MG TAB 565846 METOCLOPRAMIDE HCL Inactive MECLIZINE HCL 25 MG CHEW TAB 1 four times a day as needed for dizziness 08/05 MECLIZINE HCL 25 MG CHEW TAB 072557 MECLIZINE HCL Inactive SOMA 350 MG TAB 1 po q 6 hours prn spasm SOMA 350 MG TAB 814835 CARISOPRODOL Inactive MELATONIN 5 MG TABS Take one by mouth daily MELATONIN 5 MG TABS 609976 MELATONIN Inactive MULTIVITAMINS TABS Take one by mouth daily MULTIVITAMINS TABS MULTIPLE VITAMIN Inactive LORTAB 5 5-500 MG TABS 1/2 to 1 tablet by mouth every 4 hours as needed for pain LORTAB 5 5-500 MG TABS HYDROCODONE- ACETAMINOPHEN Inactive XANAX 0.5 MG TABS 1 tablet every 6 hrs prn XANAX 0.5 MG TABS 767356 ALPRAZOLAM Inactive AUGMENTIN 875-125 MG TAB 1 tab by mouth twice daily with food AUGMENTIN 875-125 MG TAB 165881 AMOXICILLIN-POT CLAVULANATE Inactive ALPRAZOLAM 0.5 MG TABS 1 tab every 6hrs as needed ALPRAZOLAM 0.5 MG TABS 243482 ALPRAZOLAM Inactive SPIRONOLACTONE 25 MG TAB 0.5 tablet by mouth daily SPIRONOLACTONE 25 MG TAB 675429 SPIRONOLACTONE Inactive ACCU-CHEK KEYONA PLUS W/DEVICE KIT Use for testing bloodsugars three times daily as needed ACCU-CHEK KEYONA PLUS W/DEVICE KIT BLOOD GLUCOSE MONITORING SUPPL Inactive ACCU-CHEK KEYONA PLUS STRP Use for testing bloodsugars three times daily as needed ACCU-CHEK KEYONA PLUS STRP GLUCOSE BLOOD Inactive ACCU-CHEK FASTCLIX LANCETS MISC Use to check bloodsugar three times daily as needed ACCU-CHEK FASTCLIX LANCETS MISC 64547974646 LANCETS Inactive TRAMADOL HCL 50 MG TABS 1 tablets every 6 hours as needed for pain TRAMADOL HCL 50 MG TABS 208891 TRAMADOL HCL Inactive VENLAFAXINE HCL 75 MG TABS 1 po BID VENLAFAXINE HCL 75 MG TABS 682387 VENLAFAXINE HCL Inactive HYDROCODONE-ACETAMINOPHEN 5-500 MG TABS take one po Q 4-6 hours prn HYDROCODONE-ACETAMINOPHEN 5-500 MG TABS HYDROCODONE- ACETAMINOPHEN Inactive LORTAB 5 5-500 MG TABS 1/2 to 1 tablet by mouth every 4 hours as needed for pain LORTAB 5 5-500 MG TABS HYDROCODONE- ACETAMINOPHEN Inactive LAMISIL 250 MG TAB 1 po qd LAMISIL 250 MG TAB 024218 TERBINAFINE HCL Inactive VENLAFAXINE HCL 37.5 MG TABS 1 po BID VENLAFAXINE HCL 37.5 MG TABS 246189 VENLAFAXINE HCL Inactive CIPRO 500 MG TAB 1 tablet by mouth twice daily CIPRO 500 MG TAB 561846 CIPROFLOXACIN HCL Inactive VENLAFAXINE HCL 75 MG TABS 1 po BID VENLAFAXINE HCL 75 MG TABS 693395 VENLAFAXINE HCL Inactive SIMVASTATIN 40 MG TABS Take one by mouth daily SIMVASTATIN 40 MG TABS 200744 SIMVASTATIN Inactive OMEPRAZOLE 20 MG TBEC 1 PO 30 MIN BEFORE 1ST MEAL OMEPRAZOLE 20 MG TBEC 809275 OMEPRAZOLE Inactive FENOFIBRATE 145 MG TABS 1 po qd FENOFIBRATE 145 MG TABS 719745 FENOFIBRATE Inactive BACTRIM DS 800-160 MG TABS 1 bid x 14 day start 09-28-13 BACTRIM DS 800-160 MG TABS 305884 SULFAMETHOXAZOLE-TRIMETHOPRIM Inactive B-12 100 MCG TABS Take one by mouth daily B-12 100 MCG TABS CYANOCOBALAMIN Inactive GABAPENTIN 100 MG CAPS 1 po bid GABAPENTIN 100 MG CAPS 278022 GABAPENTIN Inactive HYDROCODONE-ACETAMINOPHEN 5-325 MG TABS 1 tab by mouth every 6 hours as needed for pain HYDROCODONE-ACETAMINOPHEN 5-325 MG TABS 182013 HYDROCODONE-ACETAMINOPHEN Inactive CIPRO 500 MG TABS 1 bid x 14 days start 09-28-13 CIPRO 500 MG TABS 689527 CIPROFLOXACIN HCL Inactive ALIGN 4 MG CAPS [...] as needed DICLOFENAC SODIUM 50 MG TBEC 431500 DICLOFENAC SODIUM Inactive PREDNISONE 20 MG TAB 2 tablets once daily for 2 days, then 1 tablet once daily for 2 days PREDNISONE 20 MG TAB 462946 PREDNISONE Inactive TRUEDRAW LANCING DEVICE MISC Test [...] 2 weeks TRIAMCINOLONE ACETONIDE 0.1 % OINT 9869858 TRIAMCINOLONE ACETONIDE Inactive PREDNISONE 20 MG TAB 2 tabs daily for 3 days, 1 tab daily for 3 days, 1/2 tab daily for 2 days PREDNISONE 20 MG TAB 463041 PREDNISONE Inactive PREDNISONE 20 MG TAB 2 tabs daily for 3 days, 1 tab daily for 3 days, 1/2 tab daily for 2 days PREDNISONE 20 MG TAB 787341 PREDNISONE Inactive BACTRIM DS 800-160 MG TABS 1 po BID x 7 days BACTRIM DS 800-160 MG TABS 980878 SULFAMETHOXAZOLE-TRIMETHOPRIM Inactive Immunizations Vaccine Administration Date Value Standard Description Seasonal influenza vaccine, injectable, containing preservative, for > 3 years old (Afluria, FluLaval, Fluzone, Fluvirin, Fluarix, Agriflu(>=18 yo)) Fluzone (>3 yrs.) [[id number]] Influenza, seasonal, injectable influenza immunization (Flu Vax) has been administered 02/22/2012 influenza virus vaccine, unspecified formulation Seasonal influenza vaccine, injectable, containing preservative, for > 3 years old (Afluria, FluLaval, Fluzone, Fluvirin, Fluarix, Agriflu(>=18 yo)) Fluzone (>3 yrs.) [[id number]] Influenza, seasonal, injectable Vital Signs Date Name [...] CBC - Chemistry sodium, serum 143 mmol/L 081-104 6655/03/10 potassium, serum 4.9 mmol/L 3.5-5.2 chloride, serum [...] MICROALBUMIN - Chemistry sodium, serum 142 mmol/L 430-077 5349/10/08 potassium, serum 4.5 mmol/L 3.5-5.2 chloride, serum [...] 15-37 alanine aminotransferase (SGPT), serum 32 U/L -78 bilirubin, serum, total 0.30 mg/dL 0.00-1.00 cholesterol, serum 111 mg/dL 422-181 8934/07/28 triglyceride, serum, fasting 177 mg/dL 30-200 HDL [...] Panel - Chemistry cholesterol, serum 124 mg/dL 166-529 8790/01/12 triglyceride, serum, fasting 135 mg/dL 30-200 HDL cholesterol, serum 41 mg/dL 32-96 LDL cholesterol, serum 56 mg/dL 0-130 sodium, serum 140 mmol/L 534-502 9408/01/12 carbon dioxide, venous blood 27.7 mmol/L 21.0-32.0 potassium, serum 4.5 mmol/L 3.5-5.2 chloride, serum 104 mmol/L 98-107 blood glucose 139 mg/dL 65-110 urea nitrogen, blood 16 mg/dL 7-18 alanine aminotransferase (SGPT), serum 32 U/L -78 aspartate aminotransferase (SGOT), serum 25 U/L 15-37 calcium, serum 9.1 mg/dL 8.5-10.1 bilirubin, serum, total 0.50 mg/dL 0.00-1.00 Encounters Code Encounter Date Provider Facility CPT-27581 Level 4 Est. 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 Patient 10:30:04 CDT Tu Landeros MD [facility] CPT-06933 Level 4 Est. Patient 11:03:38 CDT Tu Landeros MD [facility] CPT-57654 Level 3 Est. Patient 10:20:44 CDT Fab Morales DO [facility] CPT-10433 Level 4 Est. Patient 14:38:57 CDT Tu Landeros MD [facility] CPT-50703 Level 4 Est. 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 Patient 09:45:25 CDT Tu Landeros MD [facility] CPT-69865 Level 4 Est. 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 Patient 14:09:06 CDT Tu Landeros MD [facility] CPT-82235 Level 3 Est. Patient 13:36:54 CDT Tu Landeros MD [facility] CPT-15067 Level 3 Est. Patient 08:59:14 CDT Tu Landeros MD [facility] CPT-52753 Level 3 Est. Patient 13:48:35 CDT Fab Morales DO [facility] CPT-55643 Level 4 Est. Patient 10:05:48 CDT Tu Landeros MD [facility] CPT-11441 Level 3 Est. Patient 13:38:42 CDT Marek BANKS [facility] CPT-61138 Level 5 Est. Patient 08:08:39 CDT Jerrica Hopkins TITO [facility] CPT-04320 Level 4 Est. Patient 14:23:38 CDT Tu Landeros MD [facility] CPT-23449 Level 3 Est. Patient 11:44:04 CDT Tu Landeros MD [facility] CPT-41103 Level 3 Est. 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 Patient 11:03:14 WRAPPING MACHINE HELPER Tu Landeros MD [facility] CPT-55654 Level 3 Est. Patient 12:42:49 CDT Tu Landeros MD [facility] CPT-59735 Level 3 Est. Patient 11:52:06 CDT Tu Landeros MD [facility] CPT-26821 Level 3 Est. Patient 13:58:11 CDT Tu Landeros MD [facility] CPT-88238 Level 3 Est. Patient 17:50:07 CDT Fab Morales DO [facility] CPT-18641 Level 3 Est. Patient 12:06:29 CDT Elvira Cervantes MD, PhD [facility] CPT-01368 Level 3 Est. Patient 15:50:32 CDT Tu Landeros MD [facility] CPT-77725 Level 4 Est. Patient 16:08:29 CDT Tu Landeros MD [facility] CPT-66010 Level 3 Est. Patient 16:04:19 CDT Tu Landeros MD [facility] CPT-33710 Level 3 Est. 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 Patient 16:24:02 WRAPPING MACHINE HELPER Tu Landeros MD [facility] CPT-41337 Level 3 Est. Patient 17:21:23 WRAPPING MACHINE HELPER Tu Landeros MD [facility] Procedures Code Procedure Name Date Entry Date Standard Description CPT-71968 Postop F/U Visit 10:02:45 CDT CPT-LR Lesion Removal 09:02:56 CDT CPT-JTINJ Asp/Joint Injection 15:51:27 WRAPPING MACHINE HELPER CPT-OV Office Visit 15:52:02 WRAPPING MACHINE HELPER CPT-OV Office Visit 15:45:11 CDT CPT-000 Give Zostavax 14:09:06 CDT CPT-82898 Administration single or combination vaccine inc oral 15 :19:04 CDT CPT-10702 Zoster Vaccine (Zostavax) 15:19:04 CDT CPT-55189 Administration single or combination vaccine inc oral 20 :51:03 CDT CPT-94086 Influenza split virus > age 3 20:51:03 CDT CPT-71647 No Charge Offi Visit 14:52:03 CDT CPT-OV Office Visit 14:57:43 CDT CPT-OV Office Visit 15:22:32 CDT CPT-51858 Administration single or combination vaccine inc oral 11 :33:15 CDT CPT-58289 Influenza split virus > age 3 11:33:15 CDT
--- OUTSIDE RECORDS SUMMARY | 2018-04-25 13:39 | XMS REPORT | Clinical Summary ---
Author Author Admin, SACHI Organization [facility] [employer] Address Unknown Phone Unavailable Allergies, Adverse Reactions, [...] ORAL TABS 1 po BID VENLAFAXINE HCL 17973866962 Active Tu Landeros MD Active GLIMEPIRIDE 1 MG ORAL TABS 1 po qd GLIMEPIRIDE 38585178011 Active Tu Landeros MD Active TRUE METRIX BLOOD GLUCOSE TEST INVITR STRP Test blood sugar BID Dx: E11.9 GLUCOSE BLOOD 14917880869 Delores Landeros MD Active TRUE METRIX AIR GLUCOSE METER W/DEVICE KIT Test blood glucose BID Dx: E11.9 BLOOD GLUCOSE MONITORING SUPPL 56371787688 Active Tu Landeros MD Active TRUETEST TEST INVITR STRP test blood sugar twice daily. DX 250.0 GLUCOSE BLOOD 41273876035 No Longer Active Mirna Stanley LPN Active TRUEDRAW LANCING DEVICE MISC test blood sugar twice daily dx: 250.00 LANCET DEVICES 53939661237 No Longer Active Mirna Stanley LPN Active ENALAPRIL MALEATE 20 MG TABS 2 po qd ENALAPRIL MALEATE 89990076815 Active Tu Landeros MD Active SUPER B COMPLEX/VITAMIN C TABS 1 qd B COMPLEX-C 89470206767 No Longer Active Tu Landeros MD Active ASPIRIN EC 81 MG ORAL TBEC 1 po qd ASPIRIN 34253811905 Active Tu Landeros MD Active GLUCOSAMINE 500 MG TABS 2 po qd GLUCOSAMINE Active Tu Landeros MD Active SIMVASTATIN 40 MG TABS 0.5 po qHS SIMVASTATIN 25406846152 Active Tu Landeros MD Active FISH OIL 1000 MG CAPS 1 po qd OMEGA-3 FATTY ACIDS 37317844786 Active Tu Landeros MD Active METFORMIN HCL 1000 MG TABS 1 po BID METFORMIN HCL 54850123893 Active Tu Landeros MD Active KLOR-CON 10 10 MEQ CR-TABS 2 po qd POTASSIUM CHLORIDE 68761181227 Active Tu Landeros MD Active FUROSEMIDE 40 MG TAB 1 po qd FUROSEMIDE 78808626512 Active Tu Landeros MD Active REQUIP 2 MG ORAL TABS 1 po qHS PRN Restless legs ROPINIROLE HCL 97220449354 Active Tu Landeros MD Active GABAPENTIN 100 MG CAPS 1 po BID GABAPENTIN 40987045264 Active Tu Landeros MD Active REQUIP 2 MG TABS Take one tablet at bedtime prn ROPINIROLE HCL 96546023746 No Longer Active Tu Landeros MD Active VENTOLIN HFA 108 (90 BASE) MCG/ACT AERS 1-2 puffs every 4 hours if needed for cough/congestion ALBUTEROL SULFATE 89766117946 No Longer Active Ambika Aden APRN Active ZITHROMAX 250 MG TAB 2 po today, then 1 po q days 2-5 AZITHROMYCIN 69340977547 No Longer Active Miranda Suresh APRN Active FLONASE 50 MCG/ACT SUSP 1 spray each nostril twice daily until bottle empty FLUTICASONE PROPIONATE 55616744742 No Longer Active Tu Landeros MD Active COLACE 100 MG CAP 1 po BID PRN Constipation DOCUSATE SODIUM 97195682750 Active Tu Landeros MD Active TRUERESULT BLOOD GLUCOSE W/DEVICE KIT test blood sugar twice daily dx 250.00 BLOOD GLUCOSE MONITORING SUPPL 89784703896 No Longer Active Tu Landeros MD Active TRUEDRAW LANCING DEVICE MISC Test twice a day dx 250.0 LANCET DEVICES 80092178300 No Longer Active Tu Landeros MD Active PREDNISONE 20 MG TAB 2 tablets once daily for 2 days, then 1 tablet once daily for 2 days PREDNISONE 33791450964 No Longer Active Tu Landeros MD Active DICLOFENAC SODIUM 50 MG TBEC 1 tablet by mouth three times a day as needed DICLOFENAC SODIUM 44201984970 No Longer Active Fab Morales DO Active EMBRACE BLOOD GLUCOSE TEST STRP test blood sugar twice daily DX 250.0 2014 GLUCOSE BLOOD 46650431487 No Longer Active Tu Landeros MD Active TRUETEST TEST STRP test blood sugar three times daily dx: 250.00 GLUCOSE BLOOD 89641053795 No Longer Active Suze Corey VOGEL Active TRUERESULT BLOOD GLUCOSE W/DEVICE KIT use to test blood sugar tid dx: 250.00 BLOOD GLUCOSE MONITORING SUPPL 41114363828 No Longer Active Suze Corey RMA Active ALIGN 4 MG CAPS 1 tid PROBIOTIC PRODUCT 39164900785 No Longer Active Shaun Sy MD Active CIPRO 500 MG TABS 1 bid x 14 days start 09-28-13 CIPROFLOXACIN HCL 26968667946 No Longer Active Shaun Sy MD Active TRAMADOL HCL 50 MG TABS 1-2 tablets every 6 hours as needed for pain TRAMADOL HCL 70373904043 Active Lesli Kellogg APRN Active HYDROCODONE-ACETAMINOPHEN 5-325 MG TABS 1 tab by mouth every 6 hours as needed for pain HYDROCODONE-ACETAMINOPHEN 19700198703 No Longer Active Tu Landeros MD Active OMEPRAZOLE 20 MG CPDR 1 po q a.m. OMEPRAZOLE 75797617023 Active Lesli Kellogg APRN Active GABAPENTIN 100 MG CAPS 1 po bid GABAPENTIN 09100481512 No Longer Active Tu Landeros MD Active B-12 100 MCG TABS Take one by mouth daily CYANOCOBALAMIN 04233344775 No Longer Active Tu Landeros MD Active BACTRIM DS 800-160 MG TABS 1 bid x 14 day start 09-28-13 SULFAMETHOXAZOLE-TRIMETHOPRIM 91756520999 No Longer Active Tu Landeros MD Active CARVEDILOL 12.5 MG TABS 1 po BID CARVEDILOL 08551386734 Active Tu Landeros MD Active TRILIPIX 135 MG CPDR 1 q hs CHOLINE FENOFIBRATE 98769658303 Active Tu Landeros MD Active FENOFIBRATE 145 MG TABS 1 po qd FENOFIBRATE 24888103967 No Longer Active JASPREET Perez Active OMEPRAZOLE 20 MG TBEC 1 PO 30 MIN BEFORE 1ST MEAL OMEPRAZOLE 04667559270 No Longer Active JASPREET Perez Active SIMVASTATIN 40 MG TABS Take one by mouth daily SIMVASTATIN 09816705164 No Longer Active JASPREET Perez Active VENLAFAXINE HCL 75 MG TABS 1 po BID VENLAFAXINE HCL 45038669308 No Longer Active [place] Norma, RMA Active CIPRO 500 MG TAB 1 tablet by mouth twice daily CIPROFLOXACIN HCL 96902608488 No Longer Active Tu Landeros MD Active VENLAFAXINE HCL 37.5 MG TABS 1 po BID VENLAFAXINE HCL 17242654242 No Longer Active Suze Nicole RMA Active LAMISIL 250 MG TAB 1 po qd TERBINAFINE HCL 21161510279 No Longer Active Tu Landeros MD Active LORTAB 5 5-500 MG TABS 1/2 to 1 tablet by mouth every 4 hours as needed for pain HYDROCODONE-ACETAMINOPHEN 16647526897 No Longer Active Tu Landeros MD Active HYDROCODONE-ACETAMINOPHEN 5-500 MG TABS take one po Q 4-6 hours prn HYDROCODONE-ACETAMINOPHEN 10949469480 No Longer Active Tu Landeros MD Active BACTRIM DS 800-160 MG TABS 1 po BID x 7 days SULFAMETHOXAZOLE-TRIMETHOPRIM 41554741954 No Longer Active Tu Landeros MD Active VENLAFAXINE HCL 75 MG TABS 1 po BID VENLAFAXINE HCL 48267093828 No Longer Active Elvira Cervantes MD PhD Active TRAMADOL HCL 50 MG TABS 1 tablets every 6 hours as needed for pain TRAMADOL HCL 69355447702 No Longer Active Tu Landeros MD Active ACCU-CHEK FASTCLIX LANCETS MISC Use to check bloodsugar three times daily as needed LANCETS 10918679071 No Longer Active Tu Landeros MD Active ACCU-CHEK KEYONA PLUS STRP Use for testing bloodsugars three times daily as needed GLUCOSE BLOOD 58257212636 No Longer Active Tu Landeros MD Active ACCU-CHEK KEYONA PLUS W/DEVICE KIT Use for testing bloodsugars three times daily as needed BLOOD GLUCOSE MONITORING SUPPL 48147405589 No Longer Active Tu Landeros MD Active SPIRONOLACTONE 25 MG TAB 0.5 tablet by mouth daily SPIRONOLACTONE 58150587086 No Longer Active Tu Landeros MD Active ALPRAZOLAM 0.5 MG TABS 1 tab every 6hrs as needed ALPRAZOLAM 79418166238 No Longer Active Tu Landeros MD Active AUGMENTIN 875-125 MG TAB 1 tab by mouth twice daily with food AMOXICILLIN-POT CLAVULANATE 11916261752 No Longer Active Tu Landeros MD Active PREDNISONE 20 MG TAB 2 tabs daily for 3 days, 1 tab daily for 3 days, 1/2 tab daily for 2 days PREDNISONE 35836397170 No Longer Active Tu Landeros MD Active XANAX 0.5 MG TABS 1 tablet every 6 hrs prn ALPRAZOLAM 72288552609 No Longer Active Tu Landeros MD Active PREDNISONE 20 MG TAB 2 tabs daily for 3 days, 1 tab daily for 3 days, 1/2 tab daily for 2 days PREDNISONE 65404200624 No Longer Active Tu Landeros MD Active TRIAMCINOLONE ACETONIDE 0.1 % OINT Apply to affected areas TID for up to 2 weeks TRIAMCINOLONE ACETONIDE 99741980023 No Longer Active Tu Landeros MD Active LORTAB 5 5-500 MG TABS 1/2 to 1 tablet by mouth every 4 hours as needed for pain HYDROCODONE-ACETAMINOPHEN 67212946648 No Longer Active Tu Landeros MD Active MULTIVITAMINS TABS Take one by mouth daily MULTIPLE VITAMIN 14441244142 No Longer Active Tu Landeros MD Active MELATONIN 5 MG TABS Take one by mouth daily MELATONIN 97508682114 No Longer Active Tu Landeros MD Active SOMA 350 MG TAB 1 po q 6 hours prn spasm CARISOPRODOL 60434455112 No Longer Active Tu Landeros MD Active MECLIZINE HCL 25 MG CHEW TAB 1 four times a day as needed for dizziness 08/05 MECLIZINE HCL 34353250900 No Longer Active Fab Morales DO Active ANGEL NIKKOEZAdrianna 2 TEST DISK test tid prn GLUCOSE BLOOD 85502218819 No Longer Active Negra Tyler MICHAEL Active REGLAN 10 MG TAB 1 po TID PRN Nausea METOCLOPRAMIDE HCL 21229983579 No Longer Active Tu Landeros MD Active METFORMIN HCL 500 MG TABS 1 PO BID METFORMIN HCL 60828549804 No Longer Active Tu Landeros MD Active AMBIEN 10 MG TAB 1 tab by mouth at bedtime as needed for sleep ZOLPIDEM TARTRATE 32025165315 No Longer Active Tu Landeros MD Active FLUOXETINE HCL 40 MG CAPS 1 po q day FLUOXETINE HCL 63194409845 No Longer Active Mayra [place] Active TRILIPIX 135 MG CPDR 1 po qd CHOLINE FENOFIBRATE 28112249467 No Longer Active Tu Landeros MD Active AMBIEN 10 MG TAB 1 tab by mouth at bedtime as needed for sleep AMBIEN 10 MG TAB 419230 ZOLPIDEM TARTRATE Inactive METFORMIN HCL 500 MG TABS 1 PO BID METFORMIN HCL 500 MG TABS 206265 METFORMIN HCL Inactive REGLAN 10 MG TAB 1 po TID PRN Nausea REGLAN 10 MG TAB 773715 METOCLOPRAMIDE HCL Inactive MECLIZINE HCL 25 MG CHEW TAB 1 four times a day as needed for dizziness 08/05 MECLIZINE HCL 25 MG CHEW TAB 274800 MECLIZINE HCL Inactive SOMA 350 MG TAB 1 po q 6 hours prn spasm SOMA 350 MG TAB 383186 CARISOPRODOL Inactive MELATONIN 5 MG TABS Take one by mouth daily MELATONIN 5 MG TABS 172343 MELATONIN Inactive MULTIVITAMINS TABS Take one by mouth daily MULTIVITAMINS TABS MULTIPLE VITAMIN Inactive LORTAB 5 5-500 MG TABS 1/2 to 1 tablet by mouth every 4 hours as needed for pain LORTAB 5 5-500 MG TABS HYDROCODONE- ACETAMINOPHEN Inactive XANAX 0.5 MG TABS 1 tablet every 6 hrs prn XANAX 0.5 MG TABS 517146 ALPRAZOLAM Inactive AUGMENTIN 875-125 MG TAB 1 tab by mouth twice daily with food AUGMENTIN 875-125 MG TAB 070781 AMOXICILLIN-POT CLAVULANATE Inactive ALPRAZOLAM 0.5 MG TABS 1 tab every 6hrs as needed ALPRAZOLAM 0.5 MG TABS 732242 ALPRAZOLAM Inactive SPIRONOLACTONE 25 MG TAB 0.5 tablet by mouth daily SPIRONOLACTONE 25 MG TAB 159121 SPIRONOLACTONE Inactive ACCU-CHEK KEYONA PLUS W/DEVICE KIT Use for testing bloodsugars three times daily as needed ACCU-CHEK KEYONA PLUS W/DEVICE KIT BLOOD GLUCOSE MONITORING SUPPL Inactive ACCU-CHEK KEYONA PLUS STRP Use for testing bloodsugars three times daily as needed ACCU-CHEK KEYONA PLUS STRP GLUCOSE BLOOD Inactive ACCU-CHEK FASTCLIX LANCETS MISC Use to check bloodsugar three times daily as needed ACCU-CHEK FASTCLIX LANCETS MISC 90949842485 LANCETS Inactive TRAMADOL HCL 50 MG TABS 1 tablets every 6 hours as needed for pain TRAMADOL HCL 50 MG TABS 392973 TRAMADOL HCL Inactive VENLAFAXINE HCL 75 MG TABS 1 po BID VENLAFAXINE HCL 75 MG TABS 083545 VENLAFAXINE HCL Inactive HYDROCODONE-ACETAMINOPHEN 5-500 MG TABS take one po Q 4-6 hours prn HYDROCODONE-ACETAMINOPHEN 5-500 MG TABS HYDROCODONE- ACETAMINOPHEN Inactive LORTAB 5 5-500 MG TABS 1/2 to 1 tablet by mouth every 4 hours as needed for pain LORTAB 5 5-500 MG TABS HYDROCODONE- ACETAMINOPHEN Inactive LAMISIL 250 MG TAB 1 po qd LAMISIL 250 MG TAB 000469 TERBINAFINE HCL Inactive VENLAFAXINE HCL 37.5 MG TABS 1 po BID VENLAFAXINE HCL 37.5 MG TABS 962711 VENLAFAXINE HCL Inactive CIPRO 500 MG TAB 1 tablet by mouth twice daily CIPRO 500 MG TAB 923960 CIPROFLOXACIN HCL Inactive VENLAFAXINE HCL 75 MG TABS 1 po BID VENLAFAXINE HCL 75 MG TABS 543103 VENLAFAXINE HCL Inactive SIMVASTATIN 40 MG TABS Take one by mouth daily SIMVASTATIN 40 MG TABS 105457 SIMVASTATIN Inactive OMEPRAZOLE 20 MG TBEC 1 PO 30 MIN BEFORE 1ST MEAL OMEPRAZOLE 20 MG TBEC 474166 OMEPRAZOLE Inactive FENOFIBRATE 145 MG TABS 1 po qd FENOFIBRATE 145 MG TABS 878314 FENOFIBRATE Inactive BACTRIM DS 800-160 MG TABS 1 bid x 14 day start 09-28-13 BACTRIM DS 800-160 MG TABS 460731 SULFAMETHOXAZOLE-TRIMETHOPRIM Inactive B-12 100 MCG TABS Take one by mouth daily B-12 100 MCG TABS CYANOCOBALAMIN Inactive GABAPENTIN 100 MG CAPS 1 po bid GABAPENTIN 100 MG CAPS 609796 GABAPENTIN Inactive HYDROCODONE-ACETAMINOPHEN 5-325 MG TABS 1 tab by mouth every 6 hours as needed for pain HYDROCODONE-ACETAMINOPHEN 5-325 MG TABS 127402 HYDROCODONE-ACETAMINOPHEN Inactive CIPRO 500 MG TABS 1 bid x 14 days start 09-28-13 CIPRO 500 MG TABS 602724 CIPROFLOXACIN HCL Inactive ALIGN 4 MG CAPS [...] as needed DICLOFENAC SODIUM 50 MG TBEC 497926 DICLOFENAC SODIUM Inactive PREDNISONE 20 MG TAB 2 tablets once daily for 2 days, then 1 tablet once daily for 2 days PREDNISONE 20 MG TAB 384416 PREDNISONE Inactive TRUEDRAW LANCING DEVICE MISC Test twice a day dx 250.0 TRUEDRAW LANCING DEVICE MISC LANCET DEVICES Inactive TRUERESULT BLOOD GLUCOSE W/DEVICE KIT test blood sugar twice daily dx 250.00 TRUERESULT BLOOD GLUCOSE W/DEVICE KIT BLOOD GLUCOSE MONITORING SUPPL Inactive FLONASE 50 MCG/ACT SUSP 1 spray each nostril twice daily until bottle empty FLONASE 50 MCG/ACT SUSP 0411923 FLUTICASONE PROPIONATE Inactive VENTOLIN HFA 108 (90 BASE) MCG/ACT AERS 1-2 puffs every 4 hours if needed for cough/congestion VENTOLIN HFA 108 (90 BASE) MCG/ACT AERS ALBUTEROL SULFATE Inactive REQUIP 2 MG TABS Take one tablet at bedtime prn REQUIP 2 MG TABS 499708 ROPINIROLE HCL Inactive SUPER B COMPLEX/VITAMIN C TABS 1 qd SUPER B COMPLEX/ VITAMIN C TABS 16983220926 B COMPLEX-C Inactive TRUEDRAW LANCING DEVICE MISC test blood sugar twice daily dx: 250.00 TRUEDRAW LANCING DEVICE MISC LANCET DEVICES Inactive TRUETEST TEST INVITR STRP test blood sugar twice daily. DX 250.0 TRUETEST TEST INVITR STRP GLUCOSE BLOOD Inactive TRIAMCINOLONE ACETONIDE 0.1 % OINT Apply to affected areas TID for up to 2 weeks TRIAMCINOLONE ACETONIDE 0.1 % OINT 1643222 TRIAMCINOLONE ACETONIDE Inactive PREDNISONE 20 MG TAB 2 tabs daily for 3 days, 1 tab daily for 3 days, 1/2 tab daily for 2 days PREDNISONE 20 MG TAB 027926 PREDNISONE Inactive PREDNISONE 20 MG TAB 2 tabs daily for 3 days, 1 tab daily for 3 days, 1/2 tab daily for 2 days PREDNISONE 20 MG TAB 051346 PREDNISONE Inactive BACTRIM DS 800-160 MG TABS 1 po BID x 7 days BACTRIM DS 800-160 MG TABS 952919 SULFAMETHOXAZOLE-TRIMETHOPRIM Inactive ZITHROMAX 250 MG TAB 2 po today, then 1 po q days 2-5 ZITHROMAX 250 MG TAB 5299775 AZITHROMYCIN Inactive Advance Directives Directive Description Start Date DISCUSSED WITH PATIENT -- NO DECISION MADE Immunizations Vaccine Administration Date Value Standard Description Seasonal influenza vaccine, injectable, containing preservative, for > 3 years old (Afluria, FluLaval, Fluzone, Fluvirin, Fluarix, Agriflu(>=18 yo)) Fluzone (>3 yrs.) [[id number]] Influenza, seasonal, injectable influenza immunization (Flu Vax) has been administered 02/22/2012 influenza virus vaccine, unspecified formulation Seasonal influenza vaccine, injectable, containing preservative, for > 3 years old (Afluria, FluLaval, Fluzone, Fluvirin, Fluarix, Agriflu(>=18 yo)) Fluzone (>3 yrs.) [[id number]] Influenza, seasonal, injectable Vital Signs Date Name [...] Magnesium - Chemistry sodium, serum 143 mmol/L 422-803 8638/01/10 carbon dioxide, venous blood 28.0 mmol/L 21.0-32.0 potassium, serum 4.5 mmol/L 3.5-5.2 chloride, serum 104 mmol/L 98-107 blood glucose 158 mg/dL 65-110 urea nitrogen, blood 23 mg/dL 7-18 creatinine, serum 1.06 mg/dL 0.55-1.30 alanine aminotransferase (SGPT), serum 42 U/L 12-78 aspartate aminotransferase (SGOT), serum 32 U/L 15-37 calcium, serum 9.3 mg/dL 8.5-10.1 bilirubin, serum, total 0.20 mg/dL 0.00-1.00 cholesterol, serum 177 mg/dL 067-799 0322/01/10 triglyceride, serum, fasting 320 mg/dL 30-200 HDL cholesterol, serum 46 mg/dL 32-96 LDL cholesterol, serum 67 mg/dL 0-130 Lab Report: COMPREHENSIVE METABOLIC PANEL, LIPID PANEL, HEMOGLOBIN A1c - Chemistry cholesterol, serum 135 mg/dL 886-372 2730/05/17 HDL cholesterol, serum 41 mg/dL > OR=46 triglyceride, serum, fasting 206 mg/dL <150 LDL cholesterol, serum 53 MG/DL (CALC) mg/dL <130 cholesterol/HDL ratio, serum 3.3 (calc) < OR=5.0 Lab Report: HGBA1C - Chemistry hemoglobin A1C, blood, as % of total hemoglobin 7.4 % 4.3-6.0 sodium, serum 140 mmol/L 472-084 6460/09/07 potassium, serum 4.3 mmol/L 3.5-5.2 chloride, serum [...] <30 Encounters Code Encounter Date Provider Facility CPT-77921 Level 4 Est. Patient 14:29:21 CDT Tu Landeros MD [facility] CPT-30435 Level 4 Est. Patient 09:08:17 [employer] Tu Landeros MD [facility] CPT-48205 Level 4 Est. Patient 14:40:19 CDT Tu Landeros MD [facility] CPT-17576 Level 4 Est. Patient 14:06:04 [employer] Tu Landeros MD [facility] CPT-56040 Level 3 Est. Patient 14:05:18 [employer] IN[employer]ER Tu Landeros MD [facility] CPT-80674 Level 3 Est. Patient 10:06:54 [employer] INST[employer]ER [place] Suresh APRN [facility] CPT-57331 Level 4 Est. Patient 13:50:18 [employer] INST[employer]ER Tu Landeros MD [facility] CPT-84359 Level 3 Est. Patient 10:30:04 CDT Tu Landeros MD [facility] CPT-05571 Level 4 Est. Patient 11:03:38 CDT Tu Landeros MD [facility] CPT-95482 Level 3 Est. Patient 10:20:44 CDT Fab Morales DO [facility] CPT-78403 Level 4 Est. Patient 14:38:57 CDT Tu Landeros MD [facility] CPT-16291 Level 4 Est. Patient 14:27:39 [employer]ER Tu Landeros MD [facility] CPT-77374 Level 4 Est. Patient 09:45:25 CDT Tu Landeros MD [facility] CPT-46173 Level 4 Est. Patient 09:05:20 [employer] INST[employer]ER Tu Landeros MD [facility] CPT-23582 Level 4 Est. Patient 14:09:06 CDT Tu Landeros MD [facility] CPT-34872 Level 3 Est. Patient 13:36:54 CDT Tu Landeros MD [facility] CPT-76870 Level 3 Est. Patient 08:59:14 CDT Tu Landeros MD [facility] CPT-80384 Level 3 Est. Patient 13:48:35 CDT Fab Morales DO [facility] CPT-84959 Level 4 Est. Patient 10:05:48 CDT Tu Landeros MD [facility] CPT-13265 Level 3 Est. Patient 13:38:42 CDT Marek BANKS [facility] CPT-98454 Level 5 Est. Patient 08:08:39 CDT Piyushrichajanelle Dawsontay FRANCIS [facility] CPT-60422 Level 4 Est. Patient 14:23:38 CDT Tu Landeros MD [facility] CPT-25218 Level 3 Est. Patient 11:44:04 CDT Tu Landeros MD [facility] CPT-20667 Level 3 Est. Patient 11:03:20 [employer] IN[employer]ER Tu Landeros MD [facility] CPT-30091 Level 3 Est. Patient 11:03:14 [employer] INST[employer]ER Tu Landeros MD [facility] CPT-60732 Level 3 Est. Patient 12:42:49 CDT Tu Landeros MD [facility] CPT-87247 Level 3 Est. Patient 11:52:06 CDT Tu Landeros MD [facility] CPT-90571 Level 3 Est. Patient 13:58:11 CDT Tu Landeros MD [facility] CPT-08043 Level 3 Est. Patient 17:50:07 CDT Fab Morales DO [facility] CPT-87499 Level 3 Est. Patient 12:06:29 CDT Elvira Cervantes MD PhD [facility] CPT-53899 Level 3 Est. Patient 15:50:32 CDT Tu Landeros MD [facility] CPT-38723 Level 4 Est. Patient 16:08:29 CDT Tu Landeros MD [facility] CPT-35657 Level 3 Est. Patient 16:04:19 CDT Tu Landeros MD [facility] CPT-64322 Level 3 Est. Patient 11:22:30 [employer] IN[employer]ER Tu Landeros MD [facility] CPT-95527 Level 4 Est. Patient 16:24:02 [employer] INST[employer]ER Tu Landeros MD [facility] CPT-55410 Level 3 Est. Patient 17:21:23 [employer] INST[employer]ER Tu Landeros MD [facility] Procedures Code Procedure Name Date Entry Date Standard Description CPT-G0009 Administration of Pneumococcal Vaccine 15:08:26 CDT CPT-18381 Prevnar 13 Intramuscular Suspension 15:08:26 CDT 10/08 CPT-G0439 [facility] Annual Wellness Exam 14:29:22 CDT CPT-24489 Venipuncture Draw Fee 13:15:35 CDT CPT-43734 Magnesium - LAB USE ONLY 11:14:20 [employer] CPT-48017 Lipid - LAB USE ONLY 11:14:20 [employer] IN[employer]ER CPT-54652 HGBA1C - LAB USE ONLY 11:14:20 [employer] IN[employer]ER CPT-54130 CMP - LAB USE ONLY 11:14:19 [employer] IN[employer]ER CPT-07035 CBC - LAB USE ONLY 11:14:19 [employer] IN[employer]ER CPT-30573 Venipuncture Draw Fee 11:14:18 [employer] INST[employer]ER CPT-39988 First Vx - Ix admin for Medicare patients 16:46:52 CDT CPT-89432 Fluzone Preservative Free Intramuscular Suspension 16:46 :51 CDT CPT-19458 CBC - LAB USE ONLY 17:14:46 CDT CPT-44040 HGBA1C - LAB USE ONLY 17:14:46 CDT CPT-59219 Venipuncture Draw Fee 17:14:46 CDT CPT-G0438 Initial Annual Wellness Exam 14:13:04 CDT CPT-22373 Breathing Tx 10:06:54 [employer]ER CPT-82790 Postop F/U Visit 10:02:45 CDT CPT-LR Lesion Removal 09:02:56 CDT CPT-JTINJ Asp/Joint Injection 15:51:27 [employer]ER CPT-OV Office Visit 15:52:02 [employer] IN[employer]ER CPT-OV Office Visit 15:45:11 CDT CPT-000 Give Zostavax 14:09:06 CDT CPT-57307 Administration single or combination vaccine inc oral 15 :19:04 CDT CPT-48733 Zoster Vaccine (Zostavax) 15:19:04 CDT CPT-46838 Administration single or combination vaccine inc oral 20 :51:03 CDT CPT-68070 Influenza split virus > age 3 20:51:03 CDT CPT-57604 No Charge Offi Visit 14:52:03 CDT CPT-OV Office Visit 14:57:43 CDT CPT-OV Office Visit 15:22:32 CDT CPT-40987 Administration single or combination vaccine inc oral 11 :33:15 CDT CPT-74037 Influenza split virus > age 3 11:33:15 CDT
--- OUTSIDE RECORDS SUMMARY | 2018-04-25 13:41 | XMS REPORT | Clinical Summary ---
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 Acute upper respiratory infections of unspecified site [...] each nostril q day 07/15 MOMETASONE FUROATE 04314762077 Active Lesli Kellogg APRN Active GUAIFENESIN ER 600 MG ORAL TABLET EXTENDED RELEASE 12 HOUR 1 twice a day as needed for congestion GUAIFENESIN 44954661737 Active Lesli Kellogg APRN Active MAGNESIUM OXIDE 400 MG ORAL TABLET 1 po BID MAGNESIUM OXIDE 25429929815 Active Tu Landeros MD Active SIMVASTATIN 20 MG ORAL TABLET 0.5 po qHS SIMVASTATIN 22609152471 Active Tu Landeros MD Active DICLOFENAC SODIUM 75 MG ORAL TABLET DELAYED RELEASE 1 po BID PRN Pain DICLOFENAC SODIUM 15114917004 No Longer Active Tu Landeros MD Active GABAPENTIN 100 MG ORAL CAPSULE 1 po TID GABAPENTIN 10971149962 Active Tu Landeros MD Active DICLOFENAC SODIUM 50 MG ORAL TABLET DELAYED RELEASE 1 po BID PRN Pain DICLOFENAC SODIUM 18809085222 No Longer Active Tu Landeros MD Active CYCLOBENZAPRINE HCL 10 MG ORAL TABLET 1 po TID PRN Muscle Spasm CYCLOBENZAPRINE HCL 88091405107 No Longer Active Tu Landeros MD Active INVOKANA 100 MG ORAL TABLET 1 po qd CANAGLIFLOZIN 41949123729 Active Tu Landeros MD Active GLIPIZIDE 5 MG ORAL TABLET 1 po qd GLIPIZIDE 23481526250 No Longer Active Tu Landeros MD Active VENLAFAXINE HCL 75 MG ORAL TABLET 1 po BID VENLAFAXINE HCL 87598711919 Active Tu Landeros MD Active GLIMEPIRIDE 1 MG ORAL TABLET 1 po qd GLIMEPIRIDE 86871928439 No Longer Active Tu Landeros MD Active TRUE METRIX BLOOD GLUCOSE TEST IN VITRO STRIP Test blood sugar BID Dx: E11.9 GLUCOSE BLOOD 10934592568 Active Tu Landeros MD Active TRUE METRIX AIR GLUCOSE METER w/Device KIT Test blood glucose BID Dx: E11.9 BLOOD GLUCOSE MONITORING SUPPL 74815713796 Active Tu Landeros MD Active TRUETEST TEST IN VITRO STRIP test blood sugar twice daily. DX 250.0 GLUCOSE BLOOD 61523083177 No Longer Active Mirna Stanley LPN Active TRUEDRAW LANCING DEVICE test blood sugar twice daily dx: 250.00 LANCET DEVICES 05009407725 No Longer Active Mirna Stanley LPN Active ENALAPRIL MALEATE 20 MG ORAL TABLET 2 po qd ENALAPRIL MALEATE 61091882455 Active Tu Landeros MD Active SUPER B COMPLEX/VITAMIN C ORAL TABLET 1 qd B COMPLEX- C 87906537288 No Longer Active Tu Landeros MD Active ASPIRIN EC 81 MG ORAL TABLET DELAYED RELEASE 1 po qd ASPIRIN 14850363220 Active Tu Landeros MD Active GLUCOSAMINE 500 MG TABS 2 po qd GLUCOSAMINE Active Tu Landeros MD Active FISH OIL 1000 MG ORAL CAPSULE 1 po qd OMEGA-3 FATTY ACIDS 72536108137 Active Tu Landeros MD Active METFORMIN HCL 1000 MG ORAL TABLET 1 po BID METFORMIN HCL 17722417547 Active Tu Landeros MD Active KLOR-CON 10 10 MEQ ORAL TABLET EXTENDED RELEASE 2 po qd POTASSIUM CHLORIDE 82486473014 Active Tu Landeros MD Active FUROSEMIDE 40 MG ORAL TABLET 1 po qd FUROSEMIDE 36402000592 Active Tu Landeros MD Active REQUIP 2 MG ORAL TABLET 1 po qHS PRN Restless legs ROPINIROLE HCL 84397414100 Active Tu Landeros MD Active REQUIP 2 MG ORAL TABLET Take one tablet at bedtime prn ROPINIROLE HCL 70143407064 No Longer Active Tu Landeros MD Active VENTOLIN HFA 108 (90 Base) MCG/ACT INHALATION AEROSOL SOLUTION 1-2 puffs every 4 hours if needed for cough/congestion ALBUTEROL SULFATE 51488377445 No Longer Active Ambika Aden APRN Active ZITHROMAX 250 MG ORAL TABLET 2 po today, then 1 po q days 2-5 AZITHROMYCIN 33621642433 No Longer Active Miranda Farah APRN Active FLONASE 50 MCG/ACT NASAL SUSPENSION 1 spray each nostril twice daily until bottle empty FLUTICASONE PROPIONATE 29335791937 No Longer Active Tu Landeros MD Active COLACE 100 MG ORAL CAPSULE 1 po BID PRN Constipation DOCUSATE SODIUM 13617687477 Active Tu Landeros MD Active TRUERESULT BLOOD GLUCOSE w/Device KIT test blood sugar twice daily dx 250.00 BLOOD GLUCOSE MONITORING SUPPL 01538334257 No Longer Active Tu Landeros MD Active TRUEDRAW LANCING DEVICE Test twice a day dx 250.0 LANCET DEVICES 57100268297 No Longer Active Tu Landeros MD Active PREDNISONE 20 MG ORAL TABLET 2 tablets once daily for 2 days, then 1 tablet once daily for 2 days PREDNISONE 18424669359 No Longer Active Tu Landeros MD Active DICLOFENAC SODIUM 50 MG ORAL TABLET DELAYED RELEASE 1 tablet by mouth three times a day as needed DICLOFENAC SODIUM 28439552999 No Longer Active Fab Morales DO Active EMBRACE BLOOD GLUCOSE TEST IN VITRO STRIP test blood sugar twice daily DX 250.0 GLUCOSE BLOOD 78646903860 No Longer Active Tu Landeros MD Active TRUETEST TEST IN VITRO STRIP test blood sugar three times daily dx: 250.00 GLUCOSE BLOOD 85964583826 No Longer Active Suze Nicole NURYSA Active TRUERESULT BLOOD GLUCOSE w/Device KIT use to test blood sugar tid dx: 250.00 BLOOD GLUCOSE MONITORING SUPPL 75453692357 No Longer Active Suze Nicole NURYSA Active ALIGN 4 MG ORAL CAPSULE 1 tid PROBIOTIC PRODUCT 81179372577 No Longer Active Shaun Sy MD Active CIPRO 500 MG ORAL TABLET 1 bid x 14 days start 09-28-13 CIPROFLOXACIN HCL 46379543793 No Longer Active Shaun Sy MD Active TRAMADOL HCL 50 MG ORAL TABLET 1-2 tablets every 6 hours as needed for pain TRAMADOL HCL 75171393587 Active Tu Landeros MD Active HYDROCODONE-ACETAMINOPHEN 5-325 MG ORAL TABLET 1 tab by mouth every 6 hours as needed for pain HYDROCODONE-ACETAMINOPHEN 63566420452 No Longer Active Tu Landeros MD Active OMEPRAZOLE 20 MG ORAL CAPSULE DELAYED RELEASE 1 po q a.m. OMEPRAZOLE 05932693557 Active Fab Morales DO Active GABAPENTIN 100 MG ORAL CAPSULE 1 po bid GABAPENTIN 99296329618 No Longer Active Tu Landeros MD Active B-12 100 MCG ORAL TABLET Take one by mouth daily CYANOCOBALAMIN 03021558654 No Longer Active Tu Landeros MD Active BACTRIM DS 800-160 MG ORAL TABLET 1 bid x 14 day start 09-28-13 SULFAMETHOXAZOLE-TRIMETHOPRIM 81422870404 No Longer Active Tu Landeros MD Active CARVEDILOL 12.5 MG ORAL TABLET 1 po BID CARVEDILOL 29241177983 Active Tu Landeros MD Active TRILIPIX 135 MG ORAL CAPSULE DELAYED RELEASE 1 q hs CHOLINE FENOFIBRATE 24047076064 Active Tu Landeros MD Active FENOFIBRATE 145 MG ORAL TABLET 1 po qd FENOFIBRATE 19546083714 No Longer Active JASPREET Perez Active OMEPRAZOLE 20 MG ORAL TABLET DELAYED RELEASE 1 PO 30 MIN BEFORE 1ST MEAL 2010 OMEPRAZOLE 00845060706 No Longer Active JASPREET Perez Active SIMVASTATIN 40 MG ORAL TABLET Take one by mouth daily SIMVASTATIN 08374113814 No Longer Active JASPREET Perez Active VENLAFAXINE HCL 75 MG ORAL TABLET 1 po BID VENLAFAXINE HCL 71534976061 No Longer Active JASPREET Perez Active CIPRO 500 MG ORAL TABLET 1 tablet by mouth twice daily CIPROFLOXACIN HCL 83940966631 No Longer Active Tu Landeros MD Active VENLAFAXINE HCL 37.5 MG ORAL TABLET 1 po BID VENLAFAXINE HCL 69179040034 No Longer Active Suzebianca Nicole RMA Active LAMISIL 250 MG ORAL TABLET 1 po qd TERBINAFINE HCL 52178552466 No Longer Active Tu Landeros MD Active LORTAB 5-500 MG ORAL TABLET 1/2 to 1 tablet by mouth every 4 hours as needed for pain HYDROCODONE-ACETAMINOPHEN 05541238006 No Longer Active Tu Landeros MD Active HYDROCODONE-ACETAMINOPHEN 5-500 MG ORAL TABLET take one po Q 4-6 hours prn HYDROCODONE-ACETAMINOPHEN 81835911273 No Longer Active Tu Landeros MD Active BACTRIM DS 800-160 MG ORAL TABLET 1 po BID x 7 days SULFAMETHOXAZOLE-TRIMETHOPRIM 62191883473 No Longer Active Tu Landeros MD Active VENLAFAXINE HCL 75 MG ORAL TABLET 1 po BID VENLAFAXINE HCL 06899153212 No Longer Active Elvira Cervantes MD PhD Active TRAMADOL HCL 50 MG ORAL TABLET 1 tablets every 6 hours as needed for pain TRAMADOL HCL 12950069552 No Longer Active Tu Landeros MD Active ACCU-CHEK FASTCLIX LANCETS Use to check bloodsugar three times daily as needed LANCETS 88363901299 No Longer Active Tu Landeros MD Active ACCU-CHEDawson KEYONA PLUS IN VITRO STRIP Use for testing bloodsugars three times daily as needed GLUCOSE BLOOD 47459403043 No Longer Active Tu Landeros MD Active ACCU-CHEK KEYONA PLUS w/Device KIT Use for testing bloodsugars three times daily as needed BLOOD GLUCOSE MONITORING SUPPL 79814702647 No Longer Active Tu Landeros MD Active SPIRONOLACTONE 25 MG ORAL TABLET 0.5 tablet by mouth daily 09/09 SPIRONOLACTONE 28486304216 No Longer Active Tu Landeros MD Active ALPRAZOLAM 0.5 MG ORAL TABLET 1 tab every 6hrs as needed ALPRAZOLAM 41279004894 No Longer Active Tu Landeros MD Active AUGMENTIN 875-125 MG ORAL TABLET 1 tab by mouth twice daily with food AMOXICILLIN-POT CLAVULANATE 35142539587 No Longer Active Tu Landeros MD Active PREDNISONE 20 MG ORAL TABLET 2 tabs daily for 3 days, 1 tab daily for 3 days, 1/2 tab daily for 2 days PREDNISONE 87180334016 No Longer Active Tu Landeros MD Active XANAX 0.5 MG ORAL TABLET 1 tablet every 6 hrs prn ALPRAZOLAM 99592425569 No Longer Active Tu Landeros MD Active PREDNISONE 20 MG ORAL TABLET 2 tabs daily for 3 days, 1 tab daily for 3 days, 1/2 tab daily for 2 days PREDNISONE 45526397177 No Longer Active Tu Landeros MD Active TRIAMCINOLONE ACETONIDE 0.1 % EXTERNAL OINTMENT Apply to affected areas TID for up to 2 weeks TRIAMCINOLONE ACETONIDE 50499197476 No Longer Active Tu Landeros MD Active LORTAB 5-500 MG ORAL TABLET 1/2 to 1 tablet by mouth every 4 hours as needed for pain HYDROCODONE-ACETAMINOPHEN 50868066508 No Longer Active Tu Landeros MD Active MULTIVITAMINS TABS Take one by mouth daily MULTIPLE VITAMIN 71656872631 No Longer Active Tu Landeros MD Active MELATONIN 5 MG ORAL TABLET Take one by mouth daily MELATONIN 08375354431 No Longer Active Tu Landeros MD Active SOMA 350 MG ORAL TABLET 1 po q 6 hours prn spasm CARISOPRODOL 20686171188 No Longer Active Tu Landeros MD Active MECLIZINE HCL 25 MG ORAL TABLET CHEWABLE 1 four times a day as needed for dizziness MECLIZINE HCL 67843951421 No Longer Active Fab Morales DO Active ANGEL BREEZE 2 TEST IN VITRO DISK test tid prn GLUCOSE BLOOD 26310197618 No Longer Active Negra Scott RN Active REGLAN 10 MG ORAL TABLET 1 po TID PRN Nausea METOCLOPRAMIDE HCL 93859138040 No Longer Active Tu Landeros MD Active METFORMIN HCL 500 MG ORAL TABLET 1 PO BID METFORMIN HCL 41247750491 No Longer Active Tu Landeros MD Active AMBIEN 10 MG ORAL TABLET 1 tab by mouth at bedtime as needed for sleep 06/10 ZOLPIDEM TARTRATE 62223953736 No Longer Active Tu Landeros MD Active FLUOXETINE HCL 40 MG ORAL CAPSULE 1 po q day FLUOXETINE HCL 55671785279 No Longer Active Mayra Wilber Active TRILIPIX 135 MG ORAL CAPSULE DELAYED RELEASE 1 po qd CHOLINE FENOFIBRATE 34859651243 No Longer Active Tu Landeros MD Active AMBIEN 10 MG ORAL TABLET 1 tab by mouth at bedtime as needed for sleep 06/10 AMBIEN 10 MG ORAL TABLET 970481 ZOLPIDEM TARTRATE Inactive METFORMIN HCL 500 MG ORAL TABLET 1 PO BID METFORMIN HCL 500 MG ORAL TABLET 458869 METFORMIN HCL Inactive REGLAN 10 MG ORAL TABLET 1 po TID PRN Nausea REGLAN 10 MG ORAL TABLET 021698 METOCLOPRAMIDE HCL Inactive MECLIZINE HCL 25 MG ORAL TABLET CHEWABLE 1 four times a day as needed for dizziness MECLIZINE HCL 25 MG ORAL TABLET CHEWABLE 917399 MECLIZINE HCL Inactive SOMA 350 MG ORAL TABLET 1 po q 6 hours prn spasm SOMA 350 MG ORAL TABLET 014888 CARISOPRODOL Inactive MELATONIN 5 MG ORAL TABLET Take one by mouth daily MELATONIN 5 MG ORAL TABLET 209269 MELATONIN Inactive MULTIVITAMINS TABS Take one by mouth daily MULTIVITAMINS TABS MULTIPLE VITAMIN Inactive LORTAB 5-500 MG ORAL TABLET 1/2 to 1 tablet by mouth every 4 hours as needed for pain LORTAB 5-500 MG ORAL TABLET 884336 HYDROCODONE-ACETAMINOPHEN Inactive XANAX 0.5 MG ORAL TABLET 1 tablet every 6 hrs prn XANAX 0.5 MG ORAL TABLET 557284 ALPRAZOLAM Inactive AUGMENTIN 875-125 MG ORAL TABLET 1 tab by mouth twice daily with food AUGMENTIN 875-125 MG ORAL TABLET 221106 AMOXICILLIN-POT CLAVULANATE Inactive ALPRAZOLAM 0.5 MG ORAL TABLET 1 tab every 6hrs as needed ALPRAZOLAM 0.5 MG ORAL TABLET 231958 ALPRAZOLAM Inactive SPIRONOLACTONE 25 MG ORAL TABLET 0.5 tablet by mouth daily 09/09 SPIRONOLACTONE 25 MG ORAL TABLET 409212 SPIRONOLACTONE Inactive ACCU-CHEK KEYONA PLUS w/Device KIT [...] times daily as needed ACCU-CHEK FASTCLIX LANCETS 39159035076 LANCETS Inactive TRAMADOL HCL 50 MG ORAL TABLET 1 tablets every 6 hours as needed for pain TRAMADOL HCL 50 MG ORAL TABLET 088627 TRAMADOL HCL Inactive VENLAFAXINE HCL 75 MG ORAL TABLET 1 po BID VENLAFAXINE HCL 75 MG ORAL TABLET 056153 VENLAFAXINE HCL Inactive HYDROCODONE-ACETAMINOPHEN 5-500 MG ORAL TABLET take one po Q 4-6 hours prn HYDROCODONE-ACETAMINOPHEN 5-500 MG ORAL TABLET 154311 HYDROCODONE-ACETAMINOPHEN Inactive LORTAB 5-500 MG ORAL TABLET 1/2 to 1 tablet by mouth every 4 hours as needed for pain LORTAB 5-500 MG ORAL TABLET 953908 HYDROCODONE-ACETAMINOPHEN Inactive LAMISIL 250 MG ORAL TABLET 1 po qd LAMISIL 250 MG ORAL TABLET 180763 TERBINAFINE HCL Inactive VENLAFAXINE HCL 37.5 MG ORAL TABLET 1 po BID VENLAFAXINE HCL 37.5 MG ORAL TABLET 683000 VENLAFAXINE HCL Inactive CIPRO 500 MG ORAL TABLET 1 tablet by mouth twice daily CIPRO 500 MG ORAL TABLET 610649 CIPROFLOXACIN HCL Inactive VENLAFAXINE HCL 75 MG ORAL TABLET 1 po BID VENLAFAXINE HCL 75 MG ORAL TABLET 936680 VENLAFAXINE HCL Inactive SIMVASTATIN 40 MG ORAL TABLET Take one by mouth daily SIMVASTATIN 40 MG ORAL TABLET 012594 SIMVASTATIN Inactive OMEPRAZOLE 20 MG ORAL TABLET DELAYED RELEASE 1 PO 30 MIN BEFORE 1ST MEAL 2010 OMEPRAZOLE 20 MG ORAL TABLET DELAYED RELEASE 570235 OMEPRAZOLE Inactive FENOFIBRATE 145 MG ORAL TABLET 1 po qd FENOFIBRATE 145 MG ORAL TABLET 535902 FENOFIBRATE Inactive BACTRIM DS 800-160 MG ORAL TABLET 1 bid x 14 day start 09-28-13 BACTRIM DS 800-160 MG ORAL TABLET 024563 SULFAMETHOXAZOLE- TRIMETHOPRIM Inactive B-12 100 MCG ORAL TABLET Take one by mouth daily B-12 100 MCG ORAL TABLET CYANOCOBALAMIN Inactive GABAPENTIN 100 MG ORAL CAPSULE 1 po bid GABAPENTIN 100 MG ORAL CAPSULE 081015 GABAPENTIN Inactive HYDROCODONE-ACETAMINOPHEN 5-325 MG ORAL TABLET 1 tab by mouth every 6 hours as needed for pain HYDROCODONE-ACETAMINOPHEN 5-325 MG ORAL TABLET 821535 HYDROCODONE-ACETAMINOPHEN Inactive CIPRO 500 MG ORAL TABLET 1 bid x 14 days start 09-28-13 CIPRO 500 MG ORAL TABLET 533742 CIPROFLOXACIN HCL Inactive ALIGN 4 MG ORAL [...] SODIUM 50 MG ORAL TABLET DELAYED RELEASE 501407 DICLOFENAC SODIUM Inactive PREDNISONE 20 MG ORAL TABLET 2 tablets once daily for 2 days, then 1 tablet once daily for 2 days PREDNISONE 20 MG ORAL TABLET 024332 PREDNISONE Inactive TRUEDRAW LANCING DEVICE Test twice a day dx 250.0 TRUEDRAW LANCING DEVICE LANCET DEVICES Inactive TRUERESULT BLOOD GLUCOSE w/Device KIT test blood sugar twice daily dx 250.00 TRUERESULT BLOOD GLUCOSE w/Device KIT BLOOD GLUCOSE MONITORING SUPPL Inactive FLONASE 50 MCG/ACT NASAL SUSPENSION 1 spray each nostril twice daily until bottle empty FLONASE 50 MCG/ACT NASAL SUSPENSION 4308321 FLUTICASONE PROPIONATE Inactive VENTOLIN HFA 108 (90 Base) MCG/ACT INHALATION AEROSOL SOLUTION 1-2 puffs every 4 hours if needed for cough/congestion VENTOLIN HFA 108 (90 Base) MCG/ACT INHALATION AEROSOL SOLUTION ALBUTEROL SULFATE Inactive REQUIP 2 MG ORAL TABLET Take one tablet at bedtime prn REQUIP 2 MG ORAL TABLET 168756 ROPINIROLE HCL Inactive SUPER B COMPLEX/VITAMIN C ORAL TABLET 1 qd SUPER B COMPLEX/VITAMIN C ORAL TABLET 47856165384 B COMPLEX-C Inactive TRUEDRAW LANCING DEVICE test blood sugar twice daily dx: 250.00 TRUEDRAW LANCING DEVICE LANCET DEVICES Inactive TRUETEST TEST IN VITRO STRIP test blood sugar twice daily. DX 250.0 TRUETEST TEST IN VITRO STRIP GLUCOSE BLOOD Inactive CYCLOBENZAPRINE HCL 10 MG ORAL TABLET 1 po TID PRN Muscle Spasm CYCLOBENZAPRINE HCL 10 MG ORAL TABLET 725668 CYCLOBENZAPRINE HCL Inactive DICLOFENAC SODIUM 50 MG ORAL TABLET DELAYED RELEASE 1 po BID PRN Pain DICLOFENAC SODIUM 50 MG ORAL TABLET DELAYED RELEASE 025544 DICLOFENAC SODIUM Inactive DICLOFENAC SODIUM 75 MG ORAL TABLET DELAYED RELEASE 1 po BID PRN Pain DICLOFENAC SODIUM 75 MG ORAL TABLET DELAYED RELEASE 706781 DICLOFENAC SODIUM Inactive TRIAMCINOLONE ACETONIDE 0.1 % EXTERNAL OINTMENT Apply to affected areas TID for up to 2 weeks TRIAMCINOLONE ACETONIDE 0.1 % EXTERNAL OINTMENT 3179659 TRIAMCINOLONE ACETONIDE Inactive PREDNISONE 20 MG ORAL TABLET 2 tabs daily for 3 days, 1 tab daily for 3 days, 1/2 tab daily for 2 days PREDNISONE 20 MG ORAL TABLET 896366 PREDNISONE Inactive PREDNISONE 20 MG ORAL TABLET 2 tabs daily for 3 days, 1 tab daily for 3 days, 1/2 tab daily for 2 days PREDNISONE 20 MG ORAL TABLET 459869 PREDNISONE Inactive BACTRIM DS 800-160 MG ORAL TABLET 1 po BID x 7 days BACTRIM DS 800-160 MG ORAL TABLET 783403 SULFAMETHOXAZOLE-TRIMETHOPRIM Inactive ZITHROMAX 250 MG ORAL TABLET 2 po today, then 1 po q days 2-5 ZITHROMAX 250 MG ORAL TABLET 148290 AZITHROMYCIN Inactive Advance Directives Directive Description Start Date DISCUSSED WITH PATIENT -- NO DECISION MADE Immunizations Vaccine Administration Date Value Standard Description Seasonal influenza vaccine, injectable, containing preservative, for > 3 years old (Afluria, FluLaval, Fluzone, Fluvirin, Fluarix, Agriflu(>=18 yo)) Fluzone (>3 yrs.) [[id number]] Influenza, seasonal, injectable influenza immunization (Flu Vax) has been administered 02/22/2012 influenza virus vaccine, unspecified formulation Seasonal influenza vaccine, injectable, containing preservative, for > 3 years old (Afluria, FluLaval, Fluzone, Fluvirin, Fluarix, Agriflu(>=18 yo)) Fluzone (>3 yrs.) [[id number]] Influenza, seasonal, injectable Vital Signs Date Name [...] ... - Chemistry sodium, serum 141 mmol/L 786-680 3609/01/16 carbon dioxide, venous blood 28.3 mmol/L 21.0-32.0 [...] 6.7 % 4.3-6.0 cholesterol, serum 106 mg/dL 836-298 4619/01/16 triglyceride, serum, fasting 173 mg/dL 30-200 HDL [...] A1c - Chemistry cholesterol, serum 135 mg/dL 140-388 4356/05/17 HDL cholesterol, serum 41 mg/dL > OR=46 triglyceride, serum, fasting 206 mg/dL <150 LDL cholesterol, serum 53 MG/DL (CALC) mg/dL <130 cholesterol/HDL ratio, serum 3.3 (calc) < OR=5.0 Lab Report: HGBA1C - Chemistry hemoglobin A1C, blood, as % of total hemoglobin 6.5 % 4.3-6.0 Encounters Code Encounter Date Provider Facility CPT-92766 Level 3 Est. Patient 10:13:19 CERAMIC RESEARCH ENGINEER Lesli Kellogg MAIN LINE ASSEMBLER [facility] CPT-58970 Level 4 Est. Patient 13:42:02 CERAMIC RESEARCH ENGINEER Tu Landeros MD [facility] CPT-24385 Level 3 Est. Patient 14:20:36 CDT Tu Landeros MD [facility] CPT-55734 Level 4 Est. Patient 14:28:34 CDT Tu Landeros MD [facility] CPT-95195 Level 3 Est. Patient 13:33:09 CDT Tu Landeros MD [facility] CPT-09709 Level 4 Est. Patient 14:29:21 CDT Tu Landeros MD [facility] CPT-80363 Level 4 Est. Patient 09:08:17 CERAMIC RESEARCH ENGINEER Tu Landeros MD [facility] CPT-63337 Level 4 Est. Patient 14:40:19 CDT Tu Landeros MD [facility] CPT-23293 Level 4 Est. Patient 14:06:04 CERAMIC RESEARCH ENGINEER Tu Landeros MD [facility] CPT-76753 Level 3 Est. Patient 14:05:18 CERAMIC RESEARCH ENGINEER Tu Landeros MD [facility] CPT-11995 Level 3 Est. Patient 10:06:54 CERAMIC RESEARCH ENGINEER Miranda Farah MAIN LINE ASSEMBLER [facility] CPT-00387 Level 4 Est. Patient 13:50:18 CERAMIC RESEARCH ENGINEER Tu Landeros MD [facility] CPT-24810 Level 3 Est. Patient 10:30:04 CDT Tu Landeros MD [facility] CPT-26406 Level 4 Est. Patient 11:03:38 CDT Tu Landeros MD [facility] CPT-39155 Level 3 Est. Patient 10:20:44 CDT Fab Morales DO [facility] CPT-94203 Level 4 Est. Patient 14:38:57 CDT Tu Landeros MD [facility] CPT-88448 Level 4 Est. Patient 14:27:39 CERAMIC RESEARCH ENGINEER Tu Landeros MD [facility] CPT-63514 Level 4 Est. Patient 09:45:25 CDT Tu Landeros MD [facility] CPT-73095 Level 4 Est. Patient 09:05:20 CERAMIC RESEARCH ENGINEER Tu Landeros MD [facility] CPT-20574 Level 4 Est. Patient 14:09:06 CDT Tu Landeros MD [facility] CPT-00386 Level 3 Est. Patient 13:36:54 CDT Tu Landeros MD [facility] CPT-12359 Level 3 Est. Patient 08:59:14 CDT Tu Landeros MD [facility] CPT-21465 Level 3 Est. Patient 13:48:35 CDT Fab Morales DO [facility] CPT-42611 Level 4 Est. Patient 10:05:48 CDT Tu Landeros MD [facility] CPT-28993 Level 3 Est. Patient 13:38:42 CDT Marek BANKS [facility] CPT-61997 Level 5 Est. Patient 08:08:39 CDT Jerrica FRANCIS [facility] CPT-46428 Level 4 Est. Patient 14:23:38 CDT Tu Landeros MD [facility] CPT-60382 Level 3 Est. Patient 11:44:04 CDT Tu Landeros MD [facility] CPT-90650 Level 3 Est. Patient 11:03:20 CERAMIC RESEARCH ENGINEER Tu Landeros MD [facility] CPT-64632 Level 3 Est. Patient 11:03:14 CERAMIC RESEARCH ENGINEER Tu Landeros MD [facility] CPT-91929 Level 3 Est. Patient 12:42:49 CDT Tu Landeros MD [facility] CPT-02222 Level 3 Est. Patient 11:52:06 CDT Tu Landeros MD [facility] CPT-07431 Level 3 Est. Patient 13:58:11 CDT Tu Landeros MD [facility] CPT-48217 Level 3 Est. Patient 17:50:07 CDT Fab Morales DO [facility] CPT-76396 Level 3 Est. Patient 12:06:29 CDT Elvira Cervantes MD PhD [facility] CPT-94485 Level 3 Est. Patient 15:50:32 CDT Tu Landeros MD [facility] CPT-32447 Level 4 Est. Patient 16:08:29 CDT Tu Landeros MD [facility] CPT-74471 Level 3 Est. Patient 16:04:19 CDT Tu Landeros MD [facility] CPT-40098 Level 3 Est. Patient 11:22:30 CERAMIC RESEARCH ENGINEER Tu Landeros MD [facility] CPT-10554 Level 4 Est. Patient 16:24:02 CERAMIC RESEARCH ENGINEER Tu Landeros MD [facility] CPT-57205 Level 3 Est. Patient 17:21:23 CERAMIC RESEARCH ENGINEER Tu Landeros MD [facility] Procedures Code Procedure Name Date Entry Date Standard Description CPT-44881 Shoulder, right, comp min 2V - XRAY USE ONLY 13:50:22 CDT CPT-G0009 Administration of Pneumococcal Vaccine 15:08:26 CDT CPT-92750 Prevnar 13 Intramuscular Suspension 15:08:26 CDT 10/08 CPT-G0439 Subsequent Annual Wellness Exam 14:29:22 CDT CPT-16085 Venipuncture Draw Fee 13:15:35 CDT CPT-87996 Magnesium - LAB USE ONLY 11:14:20 CERAMIC RESEARCH ENGINEER CPT-56084 Lipid - LAB USE ONLY 11:14:20 CERAMIC RESEARCH ENGINEER CPT-34152 HGBA1C - LAB USE ONLY 11:14:20 CERAMIC RESEARCH ENGINEER CPT-11909 CMP - LAB USE ONLY 11:14:19 CERAMIC RESEARCH ENGINEER CPT-88029 CBC - LAB USE ONLY 11:14:19 CERAMIC RESEARCH ENGINEER CPT-14267 Venipuncture Draw Fee 11:14:18 CERAMIC RESEARCH ENGINEER CPT-60310 First Vx - Ix admin for Medicare patients 16:46:52 CDT CPT-79174 Fluzone Preservative Free Intramuscular Suspension 16:46 :51 CDT CPT-63858 CBC - LAB USE ONLY 17:14:46 CDT CPT-73011 HGBA1C - LAB USE ONLY 17:14:46 CDT CPT-37307 Venipuncture Draw Fee 17:14:46 CDT CPT-G0438 Initial Annual Wellness Exam 14:13:04 CDT CPT-02095 Breathing Tx 10:06:54 CERAMIC RESEARCH ENGINEER CPT-90650 Postop F/U Visit 10:02:45 CDT CPT-LR Lesion Removal 09:02:56 CDT CPT-JTINJ Asp/Joint Injection 15:51:27 CERAMIC RESEARCH ENGINEER CPT-OV Office Visit 15:52:02 CERAMIC RESEARCH ENGINEER CPT-OV Office Visit 15:45:11 CDT CPT-000 Give Zostavax 14:09:06 CDT CPT-72643 Administration single or combination vaccine inc oral 15 :19:04 CDT CPT-56395 Zoster Vaccine (Zostavax) 15:19:04 CDT CPT-51368 Administration single or combination vaccine inc oral 20 :51:03 CDT CPT-82576 Influenza split virus > age 3 20:51:03 CDT CPT-88203 No Charge Offi Visit 14:52:03 CDT CPT-OV Office Visit 14:57:43 CDT CPT-OV Office Visit 15:22:32 CDT CPT-73733 Administration single or combination vaccine inc oral 11 :33:15 CDT CPT-04618 Influenza split virus > age 3 11:33:15 CDT
--- OUTSIDE RECORDS SUMMARY | 2018-04-25 13:42 | XMS REPORT | Clinical Summary ---
Author Author Admin, SACHI Organization [employer] Address Unknown Phone Unavailable Allergies, Adverse Reactions, [...] Knee pain, left, acute 719.46 Resolved Tu aLnderos MD Pain in joint involving lower leg [...] MG TABS 1 po BID VENLAFAXINE HCL 15662376381 Active Tu Landeros MD Active GABAPENTIN 100 MG CAPS 1 po BID GABAPENTIN 06392021596 Active José Luis Becerra MD Active REQUIP 2 MG TABS Take one tablet at bedtime prn ROPINIROLE HCL 00411827612 No Longer Active Tu Landeros MD Active VENTOLIN HFA 108 (90 BASE) MCG/ACT AERS 1-2 puffs every 4 hours if needed for cough/congestion ALBUTEROL SULFATE 31868627740 No Longer Active Ambika Aden APRN Active ZITHROMAX 250 MG TAB 2 po today, then 1 po q days 2-5 AZITHROMYCIN 99045876779 No Longer Active Miranda Suresh APRN Active METFORMIN HCL 1000 MG TABS 1 tablet by mouth twice daily METFORMIN HCL 88587073004 Active Tu Landeros MD Active FLONASE 50 MCG/ACT SUSP 1 spray each nostril twice daily until bottle empty FLUTICASONE PROPIONATE 93264150830 No Longer Active Tu Landeros MD Active COLACE 100 MG CAP 1 po BID PRN Constipation DOCUSATE SODIUM 11601738122 Active Tu Landeros MD Active SIMVASTATIN 40 MG TABS 0.5 tab daily at bedtime SIMVASTATIN 51289179279 Active Tu Landeros MD Active TRUERESULT BLOOD GLUCOSE W/DEVICE KIT test blood sugar twice daily dx 250.00 BLOOD GLUCOSE MONITORING SUPPL 55161827406 No Longer Active Tu Landeros MD Active TRUEDRAW LANCING DEVICE MISC Test twice a day dx 250.0 LANCET DEVICES 37086616736 No Longer Active Tu Landeros MD Active PREDNISONE 20 MG TAB 2 tablets once daily for 2 days, then 1 tablet once daily for 2 days PREDNISONE 21599787046 No Longer Active Tu Landeros MD Active DICLOFENAC SODIUM 50 MG TBEC 1 tablet by mouth three times a day as needed DICLOFENAC SODIUM 66525025585 No Longer Active Fab Morales DO Active TRUEDRAW LANCING DEVICE MISC test blood sugar twice daily dx: 250.00 LANCET DEVICES 72177375377 Active Tu Landeros MD Active TRUETEST TEST INVITR STRP test blood sugar twice daily. DX 250.0 GLUCOSE BLOOD 15947064127 Active Tu Landeros MD Active EMBRACE BLOOD GLUCOSE TEST STRP test blood sugar twice daily DX 250.0 2014 GLUCOSE BLOOD 76268146066 No Longer Active Tu Landeros MD Active TRUETEST TEST STRP test blood sugar three times daily dx: 250.00 GLUCOSE BLOOD 23849354050 No Longer Active Suze Corey VOGEL Active TRUERESULT BLOOD GLUCOSE W/DEVICE KIT use to test blood sugar tid dx: 250.00 BLOOD GLUCOSE MONITORING SUPPL 69199181379 No Longer Active Suze Corey RMA Active ALIGN 4 MG CAPS 1 tid PROBIOTIC PRODUCT 95122893673 No Longer Active Shaun Sy MD Active CIPRO 500 MG TABS 1 bid x 14 days start 09-28-13 CIPROFLOXACIN HCL 44282900062 No Longer Active Shaun Sy MD Active TRAMADOL HCL 50 MG TABS 1-2 tablets every 6 hours as needed for pain TRAMADOL HCL 86894354588 Active Tu Landeros MD Active HYDROCODONE-ACETAMINOPHEN 5-325 MG TABS 1 tab by mouth every 6 hours as needed for pain HYDROCODONE-ACETAMINOPHEN 91636417411 No Longer Active Tu Landeros MD Active OMEPRAZOLE 20 MG CPDR 1 po q a.m. OMEPRAZOLE 21313066448 Active Tu Landeros MD Active GABAPENTIN 100 MG CAPS 1 po bid GABAPENTIN 71811231371 No Longer Active Tu Landeros MD Active B-12 100 MCG TABS Take one by mouth daily CYANOCOBALAMIN 80966904043 No Longer Active Tu Landeros MD Active BACTRIM DS 800-160 MG TABS 1 bid x 14 day start 09-28-13 SULFAMETHOXAZOLE-TRIMETHOPRIM 35259825212 No Longer Active Tu Landeros MD Active CARVEDILOL 12.5 MG TABS 1 po BID CARVEDILOL 54911318792 Active Tu Landeros MD Active SUPER B COMPLEX/VITAMIN C TABS 1 qd B COMPLEX-C 08640527892 Active JASPREET Perez Active TRILIPIX 135 MG CPDR 1 q hs CHOLINE FENOFIBRATE 85508918116 Active Tu Landeros MD Active FENOFIBRATE 145 MG TABS 1 po qd FENOFIBRATE 49466509096 No Longer Active JASPREET Perez Active OMEPRAZOLE 20 MG TBEC 1 PO 30 MIN BEFORE 1ST MEAL OMEPRAZOLE 63776337092 No Longer Active JASPREET Perez Active SIMVASTATIN 40 MG TABS Take one by mouth daily SIMVASTATIN 01087998902 No Longer Active JASPREET Perez Active VENLAFAXINE HCL 75 MG TABS 1 po BID VENLAFAXINE HCL 86460574147 No Longer Active Gustavo Norma, RMA Active CIPRO 500 MG TAB 1 tablet by mouth twice daily CIPROFLOXACIN HCL 40343958466 No Longer Active Tu Landeros MD Active VENLAFAXINE HCL 37.5 MG TABS 1 po BID VENLAFAXINE HCL 98553490569 No Longer Active Suze Nicole RMA Active LAMISIL 250 MG TAB 1 po qd TERBINAFINE HCL 68193379091 No Longer Active Tu Landeros MD Active LORTAB 5 5-500 MG TABS 1/2 to 1 tablet by mouth every 4 hours as needed for pain HYDROCODONE-ACETAMINOPHEN 27035026865 No Longer Active Tu Landeros MD Active ENALAPRIL MALEATE 20 MG TABS 1.5 po qd ENALAPRIL MALEATE 66968279452 Active Tu Landeros MD Active HYDROCODONE-ACETAMINOPHEN 5-500 MG TABS take one po Q 4-6 hours prn HYDROCODONE-ACETAMINOPHEN 22230260874 No Longer Active Tu Landeros MD Active BACTRIM DS 800-160 MG TABS 1 po BID x 7 days SULFAMETHOXAZOLE-TRIMETHOPRIM 51066914447 No Longer Active Tu Landeros MD Active VENLAFAXINE HCL 75 MG TABS 1 po BID VENLAFAXINE HCL 49632722535 No Longer Active Elvira Cervantes MD PhD Active TRAMADOL HCL 50 MG TABS 1 tablets every 6 hours as needed for pain TRAMADOL HCL 48901469793 No Longer Active Tu Landeros MD Active ACCU-CHEK FASTCLIX LANCETS MISC Use to check bloodsugar three times daily as needed LANCETS 11530165782 No Longer Active Tu Landeros MD Active ACCU-CHEK KEYONA PLUS STRP Use for testing bloodsugars three times daily as needed GLUCOSE BLOOD 72653506078 No Longer Active Tu Landeros MD Active ACCU-CHEK KEYONA PLUS W/DEVICE KIT Use for testing bloodsugars three times daily as needed BLOOD GLUCOSE MONITORING SUPPL 77898499240 No Longer Active Tu Landeros MD Active SPIRONOLACTONE 25 MG TAB 0.5 tablet by mouth daily SPIRONOLACTONE 92359629184 No Longer Active Tu Landeros MD Active ALPRAZOLAM 0.5 MG TABS 1 tab every 6hrs as needed ALPRAZOLAM 70365213020 No Longer Active Tu Landeros MD Active AUGMENTIN 875-125 MG TAB 1 tab by mouth twice daily with food AMOXICILLIN-POT CLAVULANATE 13538597209 No Longer Active Tu Landeros MD Active PREDNISONE 20 MG TAB 2 tabs daily for 3 days, 1 tab daily for 3 days, 1/2 tab daily for 2 days PREDNISONE 90478015309 No Longer Active Tu Landeros MD Active XANAX 0.5 MG TABS 1 tablet every 6 hrs prn ALPRAZOLAM 12717924601 No Longer Active Tu Landeros MD Active PREDNISONE 20 MG TAB 2 tabs daily for 3 days, 1 tab daily for 3 days, 1/2 tab daily for 2 days PREDNISONE 55892865664 No Longer Active Tu Landeros MD Active TRIAMCINOLONE ACETONIDE 0.1 % OINT Apply to affected areas TID for up to 2 weeks TRIAMCINOLONE ACETONIDE 54550248932 No Longer Active Tu Landeros MD Active LORTAB 5 5-500 MG TABS 1/2 to 1 tablet by mouth every 4 hours as needed for pain HYDROCODONE-ACETAMINOPHEN 61013183857 No Longer Active Tu Landeros MD Active MULTIVITAMINS TABS Take one by mouth daily MULTIPLE VITAMIN 71624069072 No Longer Active Tu Landeros MD Active MELATONIN 5 MG TABS Take one by mouth daily MELATONIN 53076655652 No Longer Active Tu Landeros MD Active SOMA 350 MG TAB 1 po q 6 hours prn spasm CARISOPRODOL 96812939343 No Longer Active Tu Landeros MD Active MECLIZINE HCL 25 MG CHEW TAB 1 four times a day as needed for dizziness 08/05 MECLIZINE HCL 69855329097 No Longer Active Fab Morales DO Active ANGEL BREEZE 2 TEST DISK test tid prn GLUCOSE BLOOD 83390323650 No Longer Active Negra Scott RN Active REGLAN 10 MG TAB 1 po TID PRN [place]ausea METOCLOPRAMIDE HCL 47292716279 No Longer Active Tu Landeros MD Active METFORMIN HCL 500 MG TABS 1 PO BID METFORMIN HCL 63984335650 No Longer Active Tu Landeros MD Active AMBIEN 10 MG TAB 1 tab by mouth at bedtime as needed for sleep ZOLPIDEM TARTRATE 05508386608 No Longer Active Tu Landeros MD Active FLUOXETINE HCL 40 MG CAPS 1 po q day FLUOXETINE HCL 28294662936 No Longer Active Mayra Pollock Active FISH OIL 1000 MG CAPS Take one by mouth daily OMEGA-3 FATTY ACIDS 31930925491 Active Tu Landeros MD Active GLUCOSAMINE 500 MG TABS Take 2 tab po qd GLUCOSAMINE 72436955031 Active Tu Landeros MD Active TRILIPIX 135 MG CPDR 1 po qd CHOLINE FENOFIBRATE 39984629618 No Longer Active Tu Landeros MD Active ASPIRIN 81 MG CHEW TAB 1 tablet by mouth daily ASPIRIN 68960241037 Active Tu Landeros MD Active FUROSEMIDE 40 MG TAB 1 tablet by mouth daily FUROSEMIDE 24106276207 Active Tu Landeros MD Active KLOR-CON 10 10 MEQ CR-TABS TAKE 2 TABS DAILY POTASSIUM CHLORIDE 64084199382 Active Tu Landeros MD Active AMBIEN 10 MG TAB 1 tab by mouth at bedtime as needed for sleep AMBIEN 10 MG TAB 611194 ZOLPIDEM TARTRATE Inactive METFORMIN HCL 500 MG TABS 1 PO BID METFORMIN HCL 500 MG TABS 879213 METFORMIN HCL Inactive REGLAN 10 MG TAB 1 po TID PRN Nausea REGLAN 10 MG TAB 694338 METOCLOPRAMIDE HCL Inactive MECLIZINE HCL 25 MG CHEW TAB 1 four times a day as needed for dizziness 08/05 MECLIZINE HCL 25 MG CHEW TAB 231258 MECLIZINE HCL Inactive SOMA 350 MG TAB 1 po q 6 hours prn spasm SOMA 350 MG TAB 387117 CARISOPRODOL Inactive MELATONIN 5 MG TABS Take one by mouth daily MELATONIN 5 MG TABS 392024 MELATONIN Inactive MULTIVITAMINS TABS Take one by mouth daily MULTIVITAMINS TABS MULTIPLE VITAMIN Inactive LORTAB 5 5-500 MG TABS 1/2 to 1 tablet by mouth every 4 hours as needed for pain LORTAB 5 5-500 MG TABS HYDROCODONE- ACETAMINOPHEN Inactive XANAX 0.5 MG TABS 1 tablet every 6 hrs prn XANAX 0.5 MG TABS 027489 ALPRAZOLAM Inactive AUGMENTIN 875-125 MG TAB 1 tab by mouth twice daily with food AUGMENTIN 875-125 MG TAB 834278 AMOXICILLIN-POT CLAVULANATE Inactive ALPRAZOLAM 0.5 MG TABS 1 tab every 6hrs as needed ALPRAZOLAM 0.5 MG TABS 049544 ALPRAZOLAM Inactive SPIRONOLACTONE 25 MG TAB 0.5 tablet by mouth daily SPIRONOLACTONE 25 MG TAB 771860 SPIRONOLACTONE Inactive ACCU-CHEK KEYONA PLUS W/DEVICE KIT Use for testing bloodsugars three times daily as needed ACCU-CHEK KEYONA PLUS W/DEVICE KIT BLOOD GLUCOSE MONITORING SUPPL Inactive ACCU-CHEK KEYONA PLUS STRP Use for testing bloodsugars three times daily as needed ACCU-CHEK KEYONA PLUS STRP GLUCOSE BLOOD Inactive ACCU-CHEK FASTCLIX LANCETS MISC Use to check bloodsugar three times daily as needed ACCU-CHEK FASTCLIX LANCETS MISC 96300577705 [facility] Inactive TRAMADOL HCL 50 MG TABS 1 tablets every 6 hours as needed for pain TRAMADOL HCL 50 MG TABS 143423 TRAMADOL HCL Inactive VENLAFAXINE HCL 75 MG TABS 1 po BID VENLAFAXINE HCL 75 MG TABS 107388 VENLAFAXINE HCL Inactive HYDROCODONE-ACETAMINOPHEN 5-500 MG TABS take one po Q 4-6 hours prn HYDROCODONE-ACETAMINOPHEN 5-500 MG TABS HYDROCODONE- ACETAMINOPHEN Inactive LORTAB 5 5-500 MG TABS 1/2 to 1 tablet by mouth every 4 hours as needed for pain LORTAB 5 5-500 MG TABS HYDROCODONE- ACETAMINOPHEN Inactive LAMISIL 250 MG TAB 1 po qd LAMISIL 250 MG TAB 900917 TERBINAFINE HCL Inactive VENLAFAXINE HCL 37.5 MG TABS 1 po BID VENLAFAXINE HCL 37.5 MG TABS 361664 VENLAFAXINE HCL Inactive CIPRO 500 MG TAB 1 tablet by mouth twice daily CIPRO 500 MG TAB 810462 CIPROFLOXACIN HCL Inactive VENLAFAXINE HCL 75 MG TABS 1 po BID VENLAFAXINE HCL 75 MG TABS 477907 VENLAFAXINE HCL Inactive SIMVASTATIN 40 MG TABS Take one by mouth daily SIMVASTATIN 40 MG TABS 089271 SIMVASTATIN Inactive OMEPRAZOLE 20 MG TBEC 1 PO 30 MIN BEFORE 1ST MEAL OMEPRAZOLE 20 MG TBEC 235544 OMEPRAZOLE Inactive FENOFIBRATE 145 MG TABS 1 po qd FENOFIBRATE 145 MG TABS 405650 FENOFIBRATE Inactive BACTRIM DS 800-160 MG TABS 1 bid x 14 day start 09-28-13 BACTRIM DS 800-160 MG TABS 953181 SULFAMETHOXAZOLE-TRIMETHOPRIM Inactive B-12 100 MCG TABS Take one by mouth daily B-12 100 MCG TABS CYANOCOBALAMIN Inactive GABAPENTIN 100 MG CAPS 1 po bid GABAPENTIN 100 MG CAPS 324336 GABAPENTIN Inactive HYDROCODONE-ACETAMINOPHEN 5-325 MG TABS 1 tab by mouth every 6 hours as needed for pain HYDROCODONE-ACETAMINOPHEN 5-325 MG TABS 500330 HYDROCODONE-ACETAMINOPHEN Inactive CIPRO 500 MG TABS 1 bid x 14 days start 14 CIPRO 500 MG TABS 755337 CIPROFLOXACIN HCL Inactive ALIGN 4 MG CAPS [...] as needed DICLOFENAC SODIUM 50 MG TBEC 515611 DICLOFENAC SODIUM Inactive PREDNISONE 20 MG TAB 2 tablets once daily for 2 days, then 1 tablet once daily for 2 days PREDNISONE 20 MG TAB 985925 PREDNISONE Inactive TRUEDRAW LANCING DEVICE MISC Test [...] at bedtime prn REQUIP 2 MG TABS 730626 ROPINIROLE HCL Inactive TRIAMCINOLONE ACETONIDE 0.1 % OINT Apply to affected areas TID for up to 2 weeks TRIAMCINOLONE ACETONIDE 0.1 % OINT 2960394 TRIAMCINOLONE ACETONIDE Inactive PREDNISONE 20 MG TAB 2 tabs daily for 3 days, 1 tab daily for 3 days, 1/2 tab daily for 2 days PREDNISONE 20 MG TAB 137608 PREDNISONE Inactive PREDNISONE 20 MG TAB 2 tabs daily for 3 days, 1 tab daily for 3 days, 1/2 tab daily for 2 days PREDNISONE 20 MG TAB 508993 PREDNISONE Inactive BACTRIM DS 800-160 MG TABS 1 po BID x 7 days BACTRIM DS 800-160 MG TABS 472039 SULFAMETHOXAZOLE-TRIMETHOPRIM Inactive ZITHROMAX 250 MG TAB 2 po today, then 1 po q days 2-5 ZITHROMAX 250 MG TAB 3647066 AZITHROMYCIN Inactive Advance Directives Directive Description Start Date DISCUSSED WITH PATIENT -- NO DECISION MADE Immunizations Vaccine Administration Date Value Standard Description Seasonal influenza vaccine, injectable, containing preservative, for > 3 years old (Afluria, FluLaval, Fluzone, Fluvirin, Fluarix, Agriflu(>=18 yo)) Fluzone (>3 yrs.) [[id number]] Influenza, seasonal, injectable influenza immunization (Flu Vax) has been administered 02/22/2012 influenza virus vaccine, unspecified formulation Seasonal influenza vaccine, injectable, containing preservative, for > 3 years old (Afluria, FluLaval, Fluzone, Fluvirin, Fluarix, Agriflu(>=18 yo)) Fluzone (>3 yrs.) [[id number]] Influenza, seasonal, injectable Vital Signs Date Name [...] 7.4 % 4.3-6.0 sodium, serum 140 mmol/L 918-122 5006/09/07 potassium, serum 4.3 mmol/L 3.5-5.2 chloride, serum 104 mmol/L 98-107 carbon dioxide, venous blood 27.7 mmol/L 21.0-32.0 blood glucose 156 mg/dL 65-110 calcium, serum 9.3 mg/dL 8.5-10.1 urea nitrogen, blood 23 mg/dL 7-18 creatinine, serum 1.21 mg/dL 0.55-1.30 Lab Report: Lipid Panel, Comp. Metabolic Panel - Chemistry cholesterol, serum 124 mg/dL 516-383 6958/01/12 triglyceride, serum, fasting 135 mg/dL 30-200 HDL cholesterol, serum 41 mg/dL 32-96 LDL cholesterol, serum 56 mg/dL 0-130 sodium, serum 140 mmol/L 766-943 7470/01/12 carbon dioxide, venous blood 27.7 mmol/L 21.0-32.0 potassium, serum 4.5 mmol/L 3.5-5.2 chloride, serum 104 mmol/L 98-107 blood glucose 139 mg/dL 65-110 urea nitrogen, blood 16 mg/dL 7-18 alanine aminotransferase (SGPT), serum 32 U/L 12-78 aspartate aminotransferase (SGOT), serum 25 U/L 15-37 calcium, serum 9.1 mg/dL 8.5-10.1 bilirubin, serum, total 0.50 mg/dL 0.00-1.00 Encounters Code Encounter Date Provider Facility CPT-72256 Level 4 Est. Patient 14:40:19 CDT Tu Landeros MD [facility] CPT-09769 Level 4 Est. Patient 14:06:04 [facility] Tu Landeros MD [facility] CPT-05642 Level 3 Est. Patient 14:05:18 [facility] Tu Landeros MD [facility] CPT-70120 Level 3 Est. Patient 10:06:54 [facility] Miranda Suresh APRN [facility] CPT-34179 Level 4 Est. Patient 13:50:18 [facility] [place] Tu Landeros MD [facility] CPT-72315 Level 3 Est. Patient 10:30:04 CDT Tu Landeros MD [facility] CPT-53079 Level 4 Est. Patient 11:03:38 CDT Tu Landeros MD [facility] CPT-47735 Level 3 Est. Patient 10:20:44 CDT Fab Morales DO [facility] CPT-12463 Level 4 Est. Patient 14:38:57 CDT Tu Landeros MD [facility] CPT-06626 Level 4 Est. Patient 14:27:39 [facility] [place] Tu Landeros MD [facility] CPT-04787 Level 4 Est. Patient 09:45:25 CDT Tu Landeros MD [facility] CPT-92008 Level 4 Est. Patient 09:05:20 [facility] [place] Tu Landeros MD [facility] CPT-38459 Level 4 Est. Patient 14:09:06 CDT Tu Landeros MD [facility] CPT-13648 Level 3 Est. Patient 13:36:54 CDT Tu Landeros MD [facility] CPT-03555 Level 3 Est. Patient 08:59:14 CDT Tu Landeros MD [facility] CPT-60111 Level 3 Est. Patient 13:48:35 CDT Fab Morales DO [facility] CPT-72505 Level 4 Est. Patient 10:05:48 CDT Tu Landeros MD [facility] CPT-58157 Level 3 Est. Patient 13:38:42 CDT Marek BANKS [facility] CPT-50603 Level 5 Est. Patient 08:08:39 CDT Jerrica FRANCIS [facility] CPT-41346 Level 4 Est. Patient 14:23:38 CDT Tu Landeros MD [facility] CPT-00927 Level 3 Est. Patient 11:44:04 CDT Tu Landeros MD [facility] CPT-58670 Level 3 Est. Patient 11:03:20 [facility] [place] Tu Landeros MD [facility] CPT-81439 Level 3 Est. Patient 11:03:14 [facility] [place] Tu Landeros MD [facility] CPT-96240 Level 3 Est. Patient 12:42:49 CDT Tu Landeros MD [facility] CPT-86047 Level 3 Est. Patient 11:52:06 CDT Tu Landeros MD [facility] CPT-14294 Level 3 Est. Patient 13:58:11 CDT Tu Landeros MD [facility] CPT-09837 Level 3 Est. Patient 17:50:07 CDT Fab Morales DO [facility] CPT-96691 Level 3 Est. Patient 12:06:29 CDT Elvira Cervantes MD PhD [facility] CPT-22852 Level 3 Est. Patient 15:50:32 CDT Tu Landeros MD [facility] CPT-27153 Level 4 Est. Patient 16:08:29 CDT Tu Landeros MD [facility] CPT-43116 Level 3 Est. Patient 16:04:19 CDT Tu Landeros MD [facility] CPT-81412 Level 3 Est. Patient 11:22:30 [facility] [place] Tu Landeros MD [facility] CPT-69533 Level 4 Est. Patient 16:24:02 [facility] [place] Tu Landeros MD [facility] CPT-79117 Level 3 Est. Patient 17:21:23 [facility] [place] Tu Landeros MD [facility] Procedures Code Procedure Name Date Entry Date Standard Description CPT-78815 First Vx - Ix admin for Medicare patients 16:46:52 CDT CPT-46129 Fluzone Preservative Free Intramuscular Suspension 16:46 :51 CDT CPT-23524 CBC - LAB USE ONLY 17:14:46 CDT CPT-83991 HGBA1C - LAB USE ONLY 17:14:46 CDT CPT-20995 Venipuncture Draw Fee 17:14:46 CDT CPT-G0438 Initial Annual Wellness Exam 14:13:04 CDT CPT-53925 Breathing Tx 10:06:54 [facility] CPT-56385 Postop F/U Visit 10:02:45 CDT CPT-LR Lesion Removal 09:02:56 CDT CPT-JTINJ Asp/Joint Injection 15:51:27 [facility] CPT-OV Office Visit 15:52:02 [facility] CPT-OV Office Visit 15:45:11 CDT CPT-000 Give Zostavax 14:09:06 CDT CPT-40645 Administration single or combination vaccine inc oral 15 :19:04 CDT CPT-50032 Zoster Vaccine (Zostavax) 15:19:04 CDT CPT-30505 Administration single or combination vaccine inc oral 20 :51:03 CDT CPT-05241 Influenza split virus > age 3 20:51:03 CDT CPT-27767 No Charge Offi Visit 14:52:03 CDT CPT-OV Office Visit 14:57:43 CDT CPT-OV Office Visit 15:22:32 CDT CPT-38067 Administration single or combination vaccine inc oral 11 :33:15 CDT CPT-45304 Influenza split virus > age 3 11:33:15 CDT
--- OUTSIDE RECORDS SUMMARY | 2018-04-25 13:43 | XMS REPORT | Clinical Summary ---
Author Author Admin, SACHI Clemons [facility] Address Unknown Phone Unavailable Allergies, Adverse Reactions, [...] Tessa Landeros MD Hot flashes ICD-627.2 Tessa Landreos MD Sebaceous cyst ICD-706.2 Tessa Landeros MD Medication List Medication Instructions Start Date Stop Date Generic Name NDC Status Provider Patient Instruction METFORMIN HCL 1000 MG TABS 1 tablet by mouth twice daily METFORMIN HCL 74697474867 Active Tu Landeros MD Active FLONASE 50 MCG/ACT SUSP 1 spray each nostril twice daily until bottle empty FLUTICASONE PROPIONATE 28768020869 No Longer Active Tu Landeros MD Active COLACE 100 MG CAP 1 po BID PRN Constipation DOCUSATE SODIUM 47376216245 Active Tu Landeros MD Active SIMVASTATIN 40 MG TABS 0.5 tab daily at bedtime SIMVASTATIN 46989912490 Active Tu Landeros MD Active TRUERESULT BLOOD GLUCOSE W/DEVICE KIT test blood sugar twice daily dx 250.00 BLOOD GLUCOSE MONITORING SUPPL 37831872555 No Longer Active Tu Landeros MD Active TRUEDRAW LANCING DEVICE MISC Test twice a day dx 250.0 LANCET DEVICES 78449429799 No Longer Active Tu Landeros MD Active PREDNISONE 20 MG TAB 2 tablets once daily for 2 days, then 1 tablet once daily for 2 days PREDNISONE 55296945116 No Longer Active Tu Landeros MD Active DICLOFENAC SODIUM 50 MG TBEC 1 tablet by mouth three times a day as needed DICLOFENAC SODIUM 18336746562 No Longer Active Fab Morales DO Active TRUEDRAW LANCING DEVICE MISC test blood sugar twice daily dx: 250.00 LANCET DEVICES 49466654768 Active Tu Landeros MD Active TRUETEST TEST INVITR STRP test blood sugar twice daily. DX 250.0 GLUCOSE BLOOD 88670635839 Active Tu Landeros MD Active EMBRACE BLOOD GLUCOSE TEST STRP test blood sugar twice daily DX 250.0 2014 GLUCOSE BLOOD 11700440289 No Longer Active Tu Landeros MD Active TRUETEST TEST STRP test blood sugar three times daily dx: 250.00 GLUCOSE BLOOD 14665934886 No Longer Active Suze VOGEL Active TRUERESULT BLOOD GLUCOSE W/DEVICE KIT use to test blood sugar tid dx: 250.00 BLOOD GLUCOSE MONITORING SUPPL 91846210611 No Longer Active Suze Nicole RMA Active ALIGN 4 MG CAPS 1 tid PROBIOTIC PRODUCT 57614099293 No Longer Active Shaun Sy MD Active CIPRO 500 MG TABS 1 bid x 14 days start 09-28-13 CIPROFLOXACIN HCL 75086243507 No Longer Active Shaun Sy MD Active TRAMADOL HCL 50 MG TABS 1-2 tablets every 6 hours as needed for pain TRAMADOL HCL 07263043148 Active Tu Landeros MD Active HYDROCODONE-ACETAMINOPHEN 5-325 MG TABS 1 tab by mouth every 6 hours as needed for pain HYDROCODONE-ACETAMINOPHEN 26892739809 No Longer Active Tu Landeros MD Active OMEPRAZOLE 20 MG CPDR 1 po q a.m. OMEPRAZOLE 36301506755 Active Tu Landeros MD Active GABAPENTIN 100 MG CAPS 1 po bid GABAPENTIN 68932636397 No Longer Active Tu Landeros MD Active B-12 100 MCG TABS Take one by mouth daily CYANOCOBALAMIN 01216227658 No Longer Active Tu Landeros MD Active GABAPENTIN 100 MG CAPS by mouth twice a day GABAPENTIN 92319341549 Active Tu Landeros MD Active BACTRIM DS 800-160 MG TABS 1 bid x 14 day start 09-28-13 SULFAMETHOXAZOLE-TRIMETHOPRIM 76445564480 No Longer Active Tu Landeros MD Active CARVEDILOL 12.5 MG TABS 1 po BID CARVEDILOL 45115340385 Active Tu Landeros MD Active SUPER B COMPLEX/VITAMIN C TABS 1 qd B COMPLEX-C 18971543771 Active JASPREET Perez Active TRILIPIX 135 MG CPDR 1 q hs CHOLINE FENOFIBRATE 52214815693 Active Tu Landeros MD Active FENOFIBRATE 145 MG TABS 1 po qd FENOFIBRATE 80618203140 No Longer Active JASPREET Perez Active OMEPRAZOLE 20 MG TBEC 1 PO 30 MIN BEFORE 1ST MEAL OMEPRAZOLE 49557637281 No Longer Active JASPREET Perez Active SIMVASTATIN 40 MG TABS Take one by mouth daily SIMVASTATIN 18751648783 No Longer Active Gustavo JASPREET Green Active VENLAFAXINE HCL 37.5 MG TABS 1 bid VENLAFAXINE HCL 44483943741 Active Tu Landeros MD Active VENLAFAXINE HCL 75 MG TABS 1 po BID VENLAFAXINE HCL 05358823759 No Longer Active JASPREET Perez Active CIPRO 500 MG TAB 1 tablet by mouth twice daily CIPROFLOXACIN HCL 29136034354 No Longer Active Tu Landeros MD Active VENLAFAXINE HCL 37.5 MG TABS 1 po BID VENLAFAXINE HCL 79699024110 No Longer Active Suzebianca NUNOA Active LAMISIL 250 MG TAB 1 po qd TERBINAFINE HCL 60101486102 No Longer Active Tu Landeros MD Active LORTAB 5 5-500 MG TABS 1/2 to 1 tablet by mouth every 4 hours as needed for pain HYDROCODONE-ACETAMINOPHEN 90509386393 No Longer Active Tu Landeros MD Active ENALAPRIL MALEATE 20 MG TABS 1.5 po qd ENALAPRIL MALEATE 70014585238 Active Tu Landeros MD Active HYDROCODONE-ACETAMINOPHEN 5-500 MG TABS take one po Q 4-6 hours prn HYDROCODONE-ACETAMINOPHEN 84972673732 No Longer Active Tu Landeros MD Active BACTRIM DS 800-160 MG TABS 1 po BID x 7 days SULFAMETHOXAZOLE-TRIMETHOPRIM 93807168089 No Longer Active Tu Landeros MD Active VENLAFAXINE HCL 75 MG TABS 1 po BID VENLAFAXINE HCL 92669782525 No Longer Active Elvira Cervantes MD PhD Active TRAMADOL HCL 50 MG TABS 1 tablets every 6 hours as needed for pain TRAMADOL HCL 79411007689 No Longer Active Tu Landeros MD Active ACCU-CHEK FASTCLIX LANCETS MISC Use to check bloodsugar three times daily as needed LANCETS 52315328829 No Longer Active Tu Landeros MD Active ACCU-CHEK KEYONA PLUS STRP Use for testing bloodsugars three times daily as needed GLUCOSE BLOOD 18455348761 No Longer Active Tu Landeros MD Active ACCU-CHEK KEYONA PLUS W/DEVICE KIT Use for testing bloodsugars three times daily as needed BLOOD GLUCOSE MONITORING SUPPL 13380693173 No Longer Active Tu Landeros MD Active SPIRONOLACTONE 25 MG TAB 0.5 tablet by mouth daily SPIRONOLACTONE 14126382159 No Longer Active Tu Landeros MD Active ALPRAZOLAM 0.5 MG TABS 1 tab every 6hrs as needed ALPRAZOLAM 81019704993 No Longer Active Tu Landeros MD Active AUGMENTIN 875-125 MG TAB 1 tab by mouth twice daily with food AMOXICILLIN-POT CLAVULANATE 86524722143 No Longer Active Tu Landeros MD Active PREDNISONE 20 MG TAB 2 tabs daily for 3 days, 1 tab daily for 3 days, 1/2 tab daily for 2 days PREDNISONE 52421431007 No Longer Active Tu Landeros MD Active XANAX 0.5 MG TABS 1 tablet every 6 hrs prn ALPRAZOLAM 80718752719 No Longer Active Tu Landeros MD Active PREDNISONE 20 MG TAB 2 tabs daily for 3 days, 1 tab daily for 3 days, 1/2 tab daily for 2 days PREDNISONE 94333932212 No Longer Active Tu Landeros MD Active TRIAMCINOLONE ACETONIDE 0.1 % OINT Apply to affected areas TID for up to 2 weeks TRIAMCINOLONE ACETONIDE 93114577367 No Longer Active Tu Landeros MD Active LORTAB 5 5-500 MG TABS 1/2 to 1 tablet by mouth every 4 hours as needed for pain HYDROCODONE-ACETAMINOPHEN 37627671960 No Longer Active Tu Landeros MD Active MULTIVITAMINS TABS Take one by mouth daily MULTIPLE VITAMIN 50623391309 No Longer Active Tu Landeros MD Active MELATONIN 5 MG TABS Take one by mouth daily MELATONIN 62687886818 No Longer Active Tu Landeros MD Active SOMA 350 MG TAB 1 po q 6 hours prn spasm CARISOPRODOL 59948910696 No Longer Active Tu Landeros MD Active MECLIZINE HCL 25 MG CHEW TAB 1 four times a day as needed for dizziness 08/05 MECLIZINE HCL 28096083008 No Longer Active Fab Morales DO Active ANGEL BREEZE 2 TEST DISK test tid prn GLUCOSE BLOOD 34895568420 No Longer Active Negra Scott RN Active REGLAN 10 MG TAB 1 po TID PRN Nausea METOCLOPRAMIDE HCL 73184729735 No Longer Active Tu Landeros MD Active METFORMIN HCL 500 MG TABS 1 PO BID METFORMIN HCL 99535444356 No Longer Active Tu Landeros MD Active AMBIEN 10 MG TAB 1 tab by mouth at bedtime as needed for sleep ZOLPIDEM TARTRATE 27579830906 No Longer Active Tu Landeros MD Active FLUOXETINE HCL 40 MG CAPS 1 po q day FLUOXETINE HCL 12869480683 No Longer Active Mayra Henderson Active FISH OIL 1000 MG CAPS Take one by mouth daily OMEGA-3 FATTY ACIDS 07977080707 Active Tu Landeros MD Active GLUCOSAMINE 500 MG TABS Take 2 tab po qd GLUCOSAMINE 39707573759 Active Tu Landeros MD Active TRILIPIX 135 MG CPDR 1 po qd CHOLINE FENOFIBRATE 89387253891 No Longer Active Tu Landeros MD Active ASPIRIN 81 MG CHEW TAB 1 tablet by mouth daily ASPIRIN 64588107731 Active Tu Landeros MD Active FUROSEMIDE 40 MG TAB 1 tablet by mouth daily FUROSEMIDE 51095094794 Active Tu Landeros MD Active REQUIP 2 MG TABS Take one tablet at bedtime prn ROPINIROLE HCL 78867760790 Active Tu Landeros MD Active KLOR-CON 10 10 MEQ CR-TABS TAKE 2 TABS DAILY POTASSIUM CHLORIDE 84815772510 Active Tu Landeros MD Active AMBIEN 10 MG TAB 1 tab by mouth at bedtime as needed for sleep AMBIEN 10 MG TAB 286985 ZOLPIDEM TARTRATE Inactive METFORMIN HCL 500 MG TABS 1 PO BID METFORMIN HCL 500 MG TABS 215796 METFORMIN HCL Inactive REGLAN 10 MG TAB 1 po TID PRN Nausea REGLAN 10 MG TAB 471373 METOCLOPRAMIDE HCL Inactive MECLIZINE HCL 25 MG CHEW TAB 1 four times a day as needed for dizziness 08/05 MECLIZINE HCL 25 MG CHEW TAB 576022 MECLIZINE HCL Inactive SOMA 350 MG TAB 1 po q 6 hours prn spasm SOMA 350 MG TAB 603936 CARISOPRODOL Inactive MELATONIN 5 MG TABS Take one by mouth daily MELATONIN 5 MG TABS 812323 MELATONIN Inactive MULTIVITAMINS TABS Take one by mouth daily MULTIVITAMINS TABS MULTIPLE VITAMIN Inactive LORTAB 5 5-500 MG TABS 1/2 to 1 tablet by mouth every 4 hours as needed for pain LORTAB 5 5-500 MG TABS HYDROCODONE- ACETAMINOPHEN Inactive XANAX 0.5 MG TABS 1 tablet every 6 hrs prn XANAX 0.5 MG TABS 074941 ALPRAZOLAM Inactive AUGMENTIN 875-125 MG TAB 1 tab by mouth twice daily with food AUGMENTIN 875-125 MG TAB 609400 AMOXICILLIN-POT CLAVULANATE Inactive ALPRAZOLAM 0.5 MG TABS 1 tab every 6hrs as needed ALPRAZOLAM 0.5 MG TABS 355696 ALPRAZOLAM Inactive SPIRONOLACTONE 25 MG TAB 0.5 tablet by mouth daily SPIRONOLACTONE 25 MG TAB 813581 SPIRONOLACTONE Inactive ACCU-CHEK KEYONA PLUS W/DEVICE KIT Use for testing bloodsugars three times daily as needed ACCU-CHEK KEYONA PLUS W/DEVICE KIT BLOOD GLUCOSE MONITORING SUPPL Inactive ACCU-CHEK KEYONA PLUS STRP Use for testing bloodsugars three times daily as needed ACCU-CHEK KEYONA PLUS STRP GLUCOSE BLOOD Inactive ACCU-CHEK FASTCLIX LANCETS MISC Use to check bloodsugar three times daily as needed ACCU-CHEK FASTCLIX LANCETS MISC 22925202794 LANCETS Inactive TRAMADOL HCL 50 MG TABS 1 tablets every 6 hours as needed for pain TRAMADOL HCL 50 MG TABS 796544 TRAMADOL HCL Inactive VENLAFAXINE HCL 75 MG TABS 1 po BID VENLAFAXINE HCL 75 MG TABS 821606 VENLAFAXINE HCL Inactive HYDROCODONE-ACETAMINOPHEN 5-500 MG TABS take one po Q 4-6 hours prn HYDROCODONE-ACETAMINOPHEN 5-500 MG TABS HYDROCODONE- ACETAMINOPHEN Inactive LORTAB 5 5-500 MG TABS 1/2 to 1 tablet by mouth every 4 hours as needed for pain LORTAB 5 5-500 MG TABS HYDROCODONE- ACETAMINOPHEN Inactive LAMISIL 250 MG TAB 1 po qd LAMISIL 250 MG TAB 767412 TERBINAFINE HCL Inactive VENLAFAXINE HCL 37.5 MG TABS 1 po BID VENLAFAXINE HCL 37.5 MG TABS 475948 VENLAFAXINE HCL Inactive CIPRO 500 MG TAB 1 tablet by mouth twice daily CIPRO 500 MG TAB 236371 CIPROFLOXACIN HCL Inactive VENLAFAXINE HCL 75 MG TABS 1 po BID VENLAFAXINE HCL 75 MG TABS 703231 VENLAFAXINE HCL Inactive SIMVASTATIN 40 MG TABS Take one by mouth daily SIMVASTATIN 40 MG TABS 504702 SIMVASTATIN Inactive OMEPRAZOLE 20 MG TBEC 1 PO 30 MIN BEFORE 1ST MEAL OMEPRAZOLE 20 MG TBEC 069940 OMEPRAZOLE Inactive FENOFIBRATE 145 MG TABS 1 po qd FENOFIBRATE 145 MG TABS 733064 FENOFIBRATE Inactive BACTRIM DS 800-160 MG TABS 1 bid x 14 day start 09-28-13 BACTRIM DS 800-160 MG TABS 164672 SULFAMETHOXAZOLE-TRIMETHOPRIM Inactive B-12 100 MCG TABS Take one by mouth daily B-12 100 MCG TABS CYANOCOBALAMIN Inactive GABAPENTIN 100 MG CAPS 1 po bid GABAPENTIN 100 MG CAPS 592003 GABAPENTIN Inactive HYDROCODONE-ACETAMINOPHEN 5-325 MG TABS 1 tab by mouth every 6 hours as needed for pain HYDROCODONE-ACETAMINOPHEN 5-325 MG TABS 855481 HYDROCODONE-ACETAMINOPHEN Inactive CIPRO 500 MG TABS 1 bid x 14 days start 09-28-13 CIPRO 500 MG TABS 257915 CIPROFLOXACIN HCL Inactive ALIGN 4 MG CAPS [...] as needed DICLOFENAC SODIUM 50 MG TBEC 905919 DICLOFENAC SODIUM Inactive PREDNISONE 20 MG TAB 2 tablets once daily for 2 days, then 1 tablet once daily for 2 days PREDNISONE 20 MG TAB 855370 PREDNISONE Inactive TRUEDRAW LANCING DEVICE MISC Test [...] 2 weeks TRIAMCINOLONE ACETONIDE 0.1 % OINT 8029237 TRIAMCINOLONE ACETONIDE Inactive PREDNISONE 20 MG TAB 2 tabs daily for 3 days, 1 tab daily for 3 days, 1/2 tab daily for 2 days PREDNISONE 20 MG TAB 705452 PREDNISONE Inactive PREDNISONE 20 MG TAB 2 tabs daily for 3 days, 1 tab daily for 3 days, 1/2 tab daily for 2 days PREDNISONE 20 MG TAB 885215 PREDNISONE Inactive BACTRIM DS 800-160 MG TABS 1 po BID x 7 days BACTRIM DS 800-160 MG TABS 646025 SULFAMETHOXAZOLE-TRIMETHOPRIM Inactive Immunizations Vaccine Administration Date Value Standard Description Seasonal influenza vaccine, injectable, containing preservative, for > 3 years old (Afluria, FluLaval, Fluzone, Fluvirin, Fluarix, Agriflu(>=18 yo)) Fluzone (>3 yrs.) [[id number]] Influenza, seasonal, injectable influenza immunization (Flu Vax) has been administered 02/22/2012 influenza virus vaccine, unspecified formulation Seasonal influenza vaccine, injectable, containing preservative, for > 3 years old (Afluria, FluLaval, Fluzone, Fluvirin, Fluarix, Agriflu(>=18 yo)) Fluzone (>3 yrs.) [YIR014] Influenza, seasonal, injectable Vital Signs Date Name [...] CBC - Chemistry sodium, serum 143 mmol/L 331-048 7123/03/10 potassium, serum 4.9 mmol/L 3.5-5.2 chloride, serum [...] MICROALBUMIN - Chemistry sodium, serum 142 mmol/L 841-899 8149/10/08 potassium, serum 4.5 mmol/L 3.5-5.2 chloride, serum [...] 0.30 mg/dL 0.00-1.00 cholesterol, serum 111 mg/dL 004-614 5960/07/28 triglyceride, serum, fasting 177 mg/dL 30-200 HDL [...] Panel - Chemistry cholesterol, serum 124 mg/dL 979-732 0552/01/12 triglyceride, serum, fasting 135 mg/dL 30-200 HDL cholesterol, serum 41 mg/dL 32-96 LDL cholesterol, serum 56 mg/dL 0-130 sodium, serum 140 mmol/L 495-168 9915/01/12 carbon dioxide, venous blood 27.7 mmol/L 21.0-32.0 potassium, serum 4.5 mmol/L 3.5-5.2 chloride, serum 104 mmol/L 98-107 blood glucose 139 mg/dL 65-110 urea nitrogen, blood 16 mg/dL 7-18 alanine aminotransferase (SGPT), serum 32 U/L -78 aspartate aminotransferase (SGOT), serum 25 U/L 15-37 calcium, serum 9.1 mg/dL 8.5-10.1 bilirubin, serum, total 0.50 mg/dL 0.00-1.00 Encounters Code Encounter Date Provider Facility CPT-70486 Level 4 Est. Patient 13:50:18 GENERAL MAGISTRATE Tu Landeros MD [facility] CPT-82733 Level 3 Est. Patient 10:30:04 CDT Tu Landeros MD [facility] CPT-27413 Level 4 Est. Patient 11:03:38 CDT Tu Landeros MD [facility] CPT-31980 Level 3 Est. Patient 10:20:44 CDT Fab Morales DO [facility] CPT-80311 Level 4 Est. Patient 14:38:57 CDT Tu Landeros MD [facility] CPT-79163 Level 4 Est. Patient 14:27:39 GENERAL MAGISTRATE Tu Landeros MD [facility] CPT-66716 Level 4 Est. Patient 09:45:25 CDT Tu Landeros MD [facility] CPT-45059 Level 4 Est. Patient 09:05:20 GENERAL MAGISTRATE Tu Landeros MD [facility] CPT-65693 Level 4 Est. Patient 14:09:06 CDT Tu Landeros MD [facility] CPT-25265 Level 3 Est. Patient 13:36:54 CDT Tu Landeros MD [facility] CPT-07140 Level 3 Est. Patient 08:59:14 CDT Tu Landeros MD [facility] CPT-87454 Level 3 Est. Patient 13:48:35 CDT Fab Morales DO [facility] CPT-06921 Level 4 Est. Patient 10:05:48 CDT Tu Landeros MD [facility] CPT-79549 Level 3 Est. Patient 13:38:42 CDT Marek BANKS [facility] CPT-45267 Level 5 Est. Patient 08:08:39 CDT Jerrica Hopkins TITO [facility] CPT-46365 Level 4 Est. Patient 14:23:38 CDT Tu Landeros MD [facility] CPT-64282 Level 3 Est. Patient 11:44:04 CDT Tu Landeros MD [facility] CPT-24851 Level 3 Est. Patient 11:03:20 GENERAL MAGISTRATE Tu Landeros MD [facility] CPT-35812 Level 3 Est. Patient 11:03:14 GENERAL MAGISTRATE Tu Landeros MD [facility] CPT-30166 Level 3 Est. Patient 12:42:49 CDT Tu Landeros MD [facility] CPT-58258 Level 3 Est. Patient 11:52:06 CDT Tu Landeros MD [facility] CPT-67944 Level 3 Est. Patient 13:58:11 CDT Tu Landeros MD [facility] CPT-59121 Level 3 Est. Patient 17:50:07 CDT Fab Morales DO [facility] CPT-26307 Level 3 Est. Patient 12:06:29 CDT Elvira Cervantes MD, PhD [facility] CPT-69185 Level 3 Est. Patient 15:50:32 CDT Tu Landeros MD [facility] CPT-92864 Level 4 Est. Patient 16:08:29 CDT Tu Landeros MD [facility] CPT-44923 Level 3 Est. Patient 16:04:19 CDT Tu Landeros MD [facility] CPT-63715 Level 3 Est. Patient 11:22:30 GENERAL MAGISTRATE Tu Landeros MD [facility] CPT-05385 Level 4 Est. Patient 16:24:02 GENERAL MAGISTRATE Tu Landeros MD [facility] CPT-41092 Level 3 Est. Patient 17:21:23 GENERAL MAGISTRATE Tu Landeros MD [facility] Procedures Code Procedure Name Date Entry Date Standard Description CPT-66936 Postop F/U Visit 10:02:45 CDT CPT-LR Lesion Removal 09:02:56 CDT CPT-JTINJ Asp/Joint Injection 15:51:27 GENERAL MAGISTRATE CPT-OV Office Visit 15:52:02 GENERAL MAGISTRATE CPT-OV Office Visit 15:45:11 CDT CPT-000 Give Zostavax 14:09:06 CDT CPT-14988 Administration single or combination vaccine inc oral 15 :19:04 CDT CPT-00261 Zoster Vaccine (Zostavax) 15:19:04 CDT CPT-31603 Administration single or combination vaccine inc oral 20 :51:03 CDT CPT-25207 Influenza split virus > age 3 20:51:03 CDT CPT-33796 No Charge Offi Visit 14:52:03 CDT CPT-OV Office Visit 14:57:43 CDT CPT-OV Office Visit 15:22:32 CDT CPT-52568 Administration single or combination vaccine inc oral 11 :33:15 CDT CPT-22806 Influenza split virus > age 3 11:33:15 CDT
--- OUTSIDE RECORDS SUMMARY | 2018-04-25 13:45 | XMS REPORT | Clinical Summary ---
Author Author Admin, SACHI Organization [facility] Address Unknown Phone Unavailable Allergies, Adverse Reactions, Alerts Allergy Name Reaction Description Start Date Severity Status Provider DANIELLE migraine h/a Critical Active Luias COOPEREIN migraine h/a Moderate No Longer Active [...] not further specified 369.20 Active Ambika Markie FASHION COORDINATOR Moderate or severe vision impairment, both eyes, [...] hours if needed for cough/congestion ALBUTEROL SULFATE 18198439894 No Longer Active Ambika Aden APRN Active ZITHROMAX 250 MG TAB 2 po today, then 1 po q days 2-5 AZITHROMYCIN 30048214371 No Longer Active Miranda Suresh APRN Active METFORMIN HCL 1000 MG TABS 1 tablet by mouth twice daily METFORMIN HCL 95884917865 Active Tu Landeros MD Active FLONASE 50 MCG/ACT SUSP 1 spray each nostril twice daily until bottle empty FLUTICASONE PROPIONATE 22135772809 No Longer Active Tu Landeros MD Active COLACE 100 MG CAP 1 po BID PRN Constipation DOCUSATE SODIUM 51435967781 Active Tu Landeros MD Active SIMVASTATIN 40 MG TABS 0.5 tab daily at bedtime SIMVASTATIN 21189628164 Active Tu Landeros MD Active TRUERESULT BLOOD GLUCOSE W/DEVICE KIT test blood sugar twice daily dx 250.00 BLOOD GLUCOSE MONITORING SUPPL 54268417564 No Longer Active Tu Landeros MD Active TRUEDRAW LANCING DEVICE MISC Test twice a day dx 250.0 LANCET DEVICES 00110305712 No Longer Active Tu Landeros MD Active PREDNISONE 20 MG TAB 2 tablets once daily for 2 days, then 1 tablet once daily for 2 days PREDNISONE 82783662683 No Longer Active Tu Landeros MD Active DICLOFENAC SODIUM 50 MG TBEC 1 tablet by mouth three times a day as needed DICLOFENAC SODIUM 80486992718 No Longer Active Fab Morales DO Active TRUEDRAW LANCING DEVICE MISC test blood sugar twice daily dx: 250.00 LANCET DEVICES 50463093760 Active Tu Landeros MD Active TRUETEST TEST INVITR STRP test blood sugar twice daily. DX 250.0 GLUCOSE BLOOD 82105126360 Active Tu Landeros MD Active EMBRACE BLOOD GLUCOSE TEST STRP test blood sugar twice daily DX 250.0 2014 GLUCOSE BLOOD 69015659126 No Longer Active Tu Landeros MD Active TRUETEST TEST STRP test blood sugar three times daily dx: 250.00 GLUCOSE BLOOD 58112094614 No Longer Active Suzebianca VOGEL Active TRUERESULT BLOOD GLUCOSE W/DEVICE KIT use to test blood sugar tid dx: 250.00 BLOOD GLUCOSE MONITORING SUPPL 70278624953 No Longer Active Suze Corey RMA Active ALIGN 4 MG CAPS 1 tid PROBIOTIC PRODUCT 39582409100 No Longer Active Shaun Sy MD Active CIPRO 500 MG TABS 1 bid x 14 days start 09-28-13 CIPROFLOXACIN HCL 09448850396 No Longer Active Shaun Sy MD Active TRAMADOL HCL 50 MG TABS 1-2 tablets every 6 hours as needed for pain TRAMADOL HCL 82528866768 Active Tu Landeros MD Active HYDROCODONE-ACETAMINOPHEN 5-325 MG TABS 1 tab by mouth every 6 hours as needed for pain HYDROCODONE-ACETAMINOPHEN 60990622537 No Longer Active Tu Landeros MD Active OMEPRAZOLE 20 MG CPDR 1 po q a.m. OMEPRAZOLE 40348188373 Active Tu Landeros MD Active GABAPENTIN 100 MG CAPS 1 po bid GABAPENTIN 88001670265 No Longer Active Tu Landeros MD Active B-12 100 MCG TABS Take one by mouth daily CYANOCOBALAMIN 12309867591 No Longer Active Tu Landeros MD Active GABAPENTIN 100 MG CAPS by mouth twice a day GABAPENTIN 88437059851 Active Tu Landeros MD Active BACTRIM DS 800-160 MG TABS 1 bid x 14 day start 14 SULFAMETHOXAZOLE-TRIMETHOPRIM 86856837179 No Longer Active Tu Landeros MD Active CARVEDILOL 12.5 MG TABS 1 po BID CARVEDILOL 70059770587 Active Kofilaura Fatumashahid FASHION COORDINATOR Active SUPER B COMPLEX/VITAMIN C TABS 1 qd B COMPLEX-C 98276380896 Active JASPREET Perez Active TRILIPIX 135 MG CPDR 1 q hs CHOLINE FENOFIBRATE 62969983818 Active Tu Landeros MD Active FENOFIBRATE 145 MG TABS 1 po qd FENOFIBRATE 16782496398 No Longer Active JASPREET Perez Active OMEPRAZOLE 20 MG TBEC 1 PO 30 MIN BEFORE 1ST MEAL OMEPRAZOLE 17046467956 No Longer Active JASPREET Perez Active SIMVASTATIN 40 MG TABS Take one by mouth daily SIMVASTATIN 65693668023 No Longer Active JASPREET Perez Active VENLAFAXINE HCL 37.5 MG TABS 1 bid VENLAFAXINE HCL 79416735257 Active Tu Landeros MD Active VENLAFAXINE HCL 75 MG TABS 1 po BID VENLAFAXINE HCL 02971240148 No Longer Active JASPREET Perez Active CIPRO 500 MG TAB 1 tablet by mouth twice daily CIPROFLOXACIN HCL 26779356922 No Longer Active Tu Landeros MD Active VENLAFAXINE HCL 37.5 MG TABS 1 po BID VENLAFAXINE HCL 05966734294 No Longer Active Suzebianca NUNOA Active LAMISIL 250 MG TAB 1 po qd TERBINAFINE HCL 90071397359 No Longer Active Tu Landeros MD Active LORTAB 5 5-500 MG TABS 1/2 to 1 tablet by mouth every 4 hours as needed for pain HYDROCODONE-ACETAMINOPHEN 43895360704 No Longer Active Tu Landeros MD Active ENALAPRIL MALEATE 20 MG TABS 1.5 po qd ENALAPRIL MALEATE 45316327313 Active Tu Landeros MD Active HYDROCODONE-ACETAMINOPHEN 5-500 MG TABS take one po Q 4-6 hours prn HYDROCODONE-ACETAMINOPHEN 19083442401 No Longer Active Tu Landeros MD Active BACTRIM DS 800-160 MG TABS 1 po BID x 7 days SULFAMETHOXAZOLE-TRIMETHOPRIM 26696461118 No Longer Active Tu Landeros MD Active VENLAFAXINE HCL 75 MG TABS 1 po BID VENLAFAXINE HCL 00799340125 No Longer Active Elvira Cervantes MD PhD Active TRAMADOL HCL 50 MG TABS 1 tablets every 6 hours as needed for pain TRAMADOL HCL 62908812016 No Longer Active Tu Landeros MD Active ACCU-CHEK FASTCLIX LANCETS MISC Use to check bloodsugar three times daily as needed LANCETS 92038037182 No Longer Active Tu Landeros MD Active ACCU-CHEK KEYONA PLUS STRP Use for testing bloodsugars three times daily as needed GLUCOSE BLOOD 67987316568 No Longer Active Tu Landeros MD Active ACCU-CHEK KEYONA PLUS W/DEVICE KIT Use for testing bloodsugars three times daily as needed BLOOD GLUCOSE MONITORING SUPPL 31373362903 No Longer Active Tu Landeros MD Active SPIRONOLACTONE 25 MG TAB 0.5 tablet by mouth daily SPIRONOLACTONE 60808471911 No Longer Active Tu Landeros MD Active ALPRAZOLAM 0.5 MG TABS 1 tab every 6hrs as needed ALPRAZOLAM 53848853420 No Longer Active Tu Landeros MD Active AUGMENTIN 875-125 MG TAB 1 tab by mouth twice daily with food AMOXICILLIN-POT CLAVULANATE 99932521384 No Longer Active Tu Landeros MD Active PREDNISONE 20 MG TAB 2 tabs daily for 3 days, 1 tab daily for 3 days, 1/2 tab daily for 2 days PREDNISONE 30835331412 No Longer Active Tu Landeros MD Active XANAX 0.5 MG TABS 1 tablet every 6 hrs prn ALPRAZOLAM 24859599180 No Longer Active Tu Landeros MD Active PREDNISONE 20 MG TAB 2 tabs daily for 3 days, 1 tab daily for 3 days, 1/2 tab daily for 2 days PREDNISONE 16454667602 No Longer Active Tu Landeros MD Active TRIAMCINOLONE ACETONIDE 0.1 % OINT Apply to affected areas TID for up to 2 weeks TRIAMCINOLONE ACETONIDE 57545394980 No Longer Active Tu Landeros MD Active LORTAB 5 5-500 MG TABS 1/2 to 1 tablet by mouth every 4 hours as needed for pain HYDROCODONE-ACETAMINOPHEN 87802046416 No Longer Active Tu Landeros MD Active MULTIVITAMINS TABS Take one by mouth daily MULTIPLE VITAMIN 15348122891 No Longer Active Tu Landeros MD Active MELATONIN 5 MG TABS Take one by mouth daily MELATONIN 75119369613 No Longer Active Tu Landeros MD Active SOMA 350 MG TAB 1 po q 6 hours prn spasm CARISOPRODOL 87077730420 No Longer Active Tu Landeros MD Active MECLIZINE HCL 25 MG CHEW TAB 1 four times a day as needed for dizziness 08/05 MECLIZINE HCL 99866605317 No Longer Active Fab Morales DO Active ANGEL BREEZE 2 TEST DISK test tid prn GLUCOSE BLOOD 11652908514 No Longer Active Negra Scott RN Active REGLAN 10 MG TAB 1 po TID PRN [place] METOCLOPRAMIDE HCL 25382222974 No Longer Active Tu Landeros MD Active METFORMIN HCL 500 MG TABS 1 PO BID METFORMIN HCL 48909088752 No Longer Active Tu Landeros MD Active AMBIEN 10 MG TAB 1 tab by mouth at bedtime as needed for sleep ZOLPIDEM TARTRATE 75677105003 No Longer Active Tu Landeros MD Active FLUOXETINE HCL 40 MG CAPS 1 po q day FLUOXETINE HCL 48900611081 No Longer Active Mayra Terry Active FISH OIL 1000 MG CAPS Take one by mouth daily OMEGA-3 FATTY ACIDS 52573331841 Active Tu Landeros MD Active GLUCOSAMINE 500 MG TABS Take 2 tab po qd GLUCOSAMINE 28350563815 Active Tu Landeros MD Active TRILIPIX 135 MG CPDR 1 po qd CHOLINE FENOFIBRATE 90975656441 No Longer Active Tu Landeros MD Active ASPIRIN 81 MG CHEW TAB 1 tablet by mouth daily ASPIRIN 58123017560 Active Tu Landeros MD Active FUROSEMIDE 40 MG TAB 1 tablet by mouth daily FUROSEMIDE 30976853523 Active Tu Landeros MD Active REQUIP 2 MG TABS Take one tablet at bedtime prn ROPINIROLE HCL 01033168153 Active Tu Landeros MD Active KLOR-CON 10 10 MEQ CR-TABS TAKE 2 TABS DAILY POTASSIUM CHLORIDE 58581550772 Active Tu Landeros MD Active AMBIEN 10 MG TAB 1 tab by mouth at bedtime as needed for sleep AMBIEN 10 MG TAB 622889 ZOLPIDEM TARTRATE Inactive METFORMIN HCL 500 MG TABS 1 PO BID METFORMIN HCL 500 MG TABS 394877 METFORMIN HCL Inactive REGLAN 10 MG TAB 1 po TID PRN Nausea REGLAN 10 MG TAB 383274 METOCLOPRAMIDE HCL Inactive MECLIZINE HCL 25 MG CHEW TAB 1 four times a day as needed for dizziness 08/05 MECLIZINE HCL 25 MG CHEW TAB 698958 MECLIZINE HCL Inactive SOMA 350 MG TAB 1 po q 6 hours prn spasm SOMA 350 MG TAB 905074 CARISOPRODOL Inactive MELATONIN 5 MG TABS Take one by mouth daily MELATONIN 5 MG TABS 400701 MELATONIN Inactive MULTIVITAMINS TABS Take one by mouth daily MULTIVITAMINS TABS MULTIPLE VITAMIN Inactive LORTAB 5 5-500 MG TABS 1/2 to 1 tablet by mouth every 4 hours as needed for pain LORTAB 5 5-500 MG TABS HYDROCODONE- ACETAMINOPHEN Inactive XANAX 0.5 MG TABS 1 tablet every 6 hrs prn XANAX 0.5 MG TABS 656255 ALPRAZOLAM Inactive AUGMENTIN 875-125 MG TAB 1 tab by mouth twice daily with food AUGMENTIN 875-125 MG TAB 118927 AMOXICILLIN-POT CLAVULANATE Inactive ALPRAZOLAM 0.5 MG TABS 1 tab every 6hrs as needed ALPRAZOLAM 0.5 MG TABS 638707 ALPRAZOLAM Inactive SPIRONOLACTONE 25 MG TAB 0.5 tablet by mouth daily SPIRONOLACTONE 25 MG TAB 867111 SPIRONOLACTONE Inactive ACCU-CHEK KEYONA PLUS W/DEVICE KIT Use for testing bloodsugars three times daily as needed ACCU-CHEK KEYONA PLUS W/DEVICE KIT BLOOD GLUCOSE MONITORING SUPPL Inactive ACCU-CHEK KEYONA PLUS STRP Use for testing bloodsugars three times daily as needed ACCU-CHEK KEYONA PLUS STRP GLUCOSE BLOOD Inactive ACCU-CHEK FASTCLIX LANCETS MISC Use to check bloodsugar three times daily as needed ACCU-CHEK FASTCLIX LANCETS MISC 46726621379 LANCETS Inactive TRAMADOL HCL 50 MG TABS 1 tablets every 6 hours as needed for pain TRAMADOL HCL 50 MG TABS 413235 TRAMADOL HCL Inactive VENLAFAXINE HCL 75 MG TABS 1 po BID VENLAFAXINE HCL 75 MG TABS 363191 VENLAFAXINE HCL Inactive HYDROCODONE-ACETAMINOPHEN 5-500 MG TABS take one po Q 4-6 hours prn HYDROCODONE-ACETAMINOPHEN 5-500 MG TABS HYDROCODONE- ACETAMINOPHEN Inactive LORTAB 5 5-500 MG TABS 1/2 to 1 tablet by mouth every 4 hours as needed for pain LORTAB 5 5-500 MG TABS HYDROCODONE- ACETAMINOPHEN Inactive LAMISIL 250 MG TAB 1 po qd LAMISIL 250 MG TAB 837339 TERBINAFINE HCL Inactive VENLAFAXINE HCL 37.5 MG TABS 1 po BID VENLAFAXINE HCL 37.5 MG TABS 913357 VENLAFAXINE HCL Inactive CIPRO 500 MG TAB 1 tablet by mouth twice daily CIPRO 500 MG TAB 041954 CIPROFLOXACIN HCL Inactive VENLAFAXINE HCL 75 MG TABS 1 po BID VENLAFAXINE HCL 75 MG TABS 311926 VENLAFAXINE HCL Inactive SIMVASTATIN 40 MG TABS Take one by mouth daily SIMVASTATIN 40 MG TABS 837796 SIMVASTATIN Inactive OMEPRAZOLE 20 MG TBEC 1 PO 30 MIN BEFORE 1ST MEAL OMEPRAZOLE 20 MG TBEC 854777 OMEPRAZOLE Inactive FENOFIBRATE 145 MG TABS 1 po qd FENOFIBRATE 145 MG TABS 379868 FENOFIBRATE Inactive BACTRIM DS 800-160 MG TABS 1 bid x 14 day start 09-28-13 BACTRIM DS 800-160 MG TABS 822552 SULFAMETHOXAZOLE-TRIMETHOPRIM Inactive B-12 100 MCG TABS Take one by mouth daily B-12 100 MCG TABS CYANOCOBALAMIN Inactive GABAPENTIN 100 MG CAPS 1 po bid GABAPENTIN 100 MG CAPS 220403 GABAPENTIN Inactive HYDROCODONE-ACETAMINOPHEN 5-325 MG TABS 1 tab by mouth every 6 hours as needed for pain HYDROCODONE-ACETAMINOPHEN 5-325 MG TABS 161030 HYDROCODONE-ACETAMINOPHEN Inactive CIPRO 500 MG TABS 1 bid x 14 days start 09-28-13 CIPRO 500 MG TABS 147251 CIPROFLOXACIN HCL Inactive ALIGN 4 MG CAPS [...] as needed DICLOFENAC SODIUM 50 MG TBEC 010813 DICLOFENAC SODIUM Inactive PREDNISONE 20 MG TAB 2 tablets once daily for 2 days, then 1 tablet once daily for 2 days PREDNISONE 20 MG TAB 955142 PREDNISONE Inactive TRUEDRAW LANCING DEVICE MISC Test twice a day dx 250.0 TRUEDRAW LANCING DEVICE MISC LANCET DEVICES Inactive TRUERESULT BLOOD GLUCOSE W/DEVICE KIT test blood sugar twice daily dx 250.00 TRUERESULT BLOOD GLUCOSE W/DEVICE KIT BLOOD GLUCOSE MONITORING SUPPL Inactive FLONASE 50 MCG/ACT SUSP 1 spray each nostril twice daily until bottle empty FLONASE 50 MCG/ACT SUSP 032803 FLUTICASONE PROPIONATE Inactive VENTOLIN HFA 108 (90 BASE) MCG/ACT AERS 1-2 puffs every 4 hours if needed for cough/congestion VENTOLIN HFA 108 (90 BASE) MCG/ACT AERS ALBUTEROL SULFATE Inactive TRIAMCINOLONE ACETONIDE 0.1 % OINT Apply to affected areas TID for up to 2 weeks TRIAMCINOLONE ACETONIDE 0.1 % OINT 2190195 TRIAMCINOLONE ACETONIDE Inactive PREDNISONE 20 MG TAB 2 tabs daily for 3 days, 1 tab daily for 3 days, 1/2 tab daily for 2 days PREDNISONE 20 MG TAB 981683 PREDNISONE Inactive PREDNISONE 20 MG TAB 2 tabs daily for 3 days, 1 tab daily for 3 days, 1/2 tab daily for 2 days PREDNISONE 20 MG TAB 502233 PREDNISONE Inactive BACTRIM DS 800-160 MG TABS 1 po BID x 7 days BACTRIM DS 800-160 MG TABS 913081 SULFAMETHOXAZOLE-TRIMETHOPRIM Inactive ZITHROMAX 250 MG TAB 2 po today, then 1 po q days 2-5 ZITHROMAX 250 MG TAB 8929581 AZITHROMYCIN Inactive Advance Directives Directive Description Start Date DISCUSSED WITH PATIENT -- NO DECISION MADE Immunizations Vaccine Administration Date Value Standard Description Seasonal influenza vaccine, injectable, containing preservative, for > 3 years old (Afluria, FluLaval, Fluzone, Fluvirin, Fluarix, Agriflu(>=18 yo)) Fluzone (>3 yrs.) [OND640] Influenza, seasonal, injectable influenza immunization (Flu Vax) has been administered 02/22/2012 influenza virus vaccine, unspecified formulation Seasonal influenza vaccine, injectable, containing preservative, for > 3 years old (Afluria, FluLaval, Fluzone, Fluvirin, Fluarix, Agriflu(>=18 yo)) Fluzone (>3 yrs.) [COV029] Influenza, seasonal, injectable Vital Signs Date Name [...] MICROALBUMIN - Chemistry sodium, serum 142 mmol/L 916-243 2776/10/08 potassium, serum 4.5 mmol/L 3.5-5.2 chloride, serum [...] 0.30 mg/dL 0.00-1.00 cholesterol, serum 111 mg/dL 621-175 0659/07/28 triglyceride, serum, fasting 177 mg/dL 30-200 HDL [...] Panel - Chemistry cholesterol, serum 124 mg/dL 478-508 8191/01/12 triglyceride, serum, fasting 135 mg/dL 30-200 HDL cholesterol, serum 41 mg/dL 32-96 LDL cholesterol, serum 56 mg/dL 0-130 sodium, serum 140 mmol/L 383-836 6391/01/12 carbon dioxide, venous blood 27.7 mmol/L 21.0-32.0 potassium, serum 4.5 mmol/L 3.5-5.2 chloride, serum 104 mmol/L 98-107 blood glucose 139 mg/dL 65-110 urea nitrogen, blood 16 mg/dL 7-18 alanine aminotransferase (SGPT), serum 32 U/L 12-78 aspartate aminotransferase (SGOT), serum 25 U/L 15-37 calcium, serum 9.1 mg/dL 8.5-10.1 bilirubin, serum, total 0.50 mg/dL 0.00-1.00 Encounters Code Encounter Date Provider Facility CPT-00501 Level 4 Est. Patient 14:06:04 FENCE MACHINE OPERATOR Tu Landeros MD [facility] CPT-01374 Level 3 Est. Patient 14:05:18 FENCE MACHINE OPERATOR Tu Landeros MD [facility] CPT-57912 Level 3 Est. Patient 10:06:54 FENCE MACHINE OPERATOR Miranda Suresh APRN [facility] CPT-43547 Level 4 Est. Patient 13:50:18 FENCE MACHINE OPERATOR Tu Landeros MD [facility] CPT-89442 Level 3 Est. Patient 10:30:04 CDT Tu Landeros MD [facility] CPT-73459 Level 4 Est. Patient 11:03:38 CDT Tu Landeros MD [facility] CPT-19221 Level 3 Est. Patient 10:20:44 CDT Fab Morales DO [facility] CPT-84443 Level 4 Est. Patient 14:38:57 CDT Tu Landeros MD [facility] CPT-52619 Level 4 Est. Patient 14:27:39 FENCE MACHINE OPERATOR Tu Landeros MD [facility] CPT-24992 Level 4 Est. Patient 09:45:25 CDT Tu Landeros MD [facility] CPT-45315 Level 4 Est. Patient 09:05:20 FENCE MACHINE OPERATOR Tu Landeros MD [facility] CPT-85915 Level 4 Est. Patient 14:09:06 CDT Tu Landeros MD [facility] CPT-48497 Level 3 Est. Patient 13:36:54 CDT Tu Landeros MD [facility] CPT-32356 Level 3 Est. Patient 08:59:14 CDT Tu Landeros MD [facility] CPT-81715 Level 3 Est. Patient 13:48:35 CDT Fab Morales DO [facility] CPT-78174 Level 4 Est. Patient 10:05:48 CDT Tu Landeros MD [facility] CPT-87146 Level 3 Est. Patient 13:38:42 CDT Marek BANKS [facility] CPT-63566 Level 5 Est. Patient 08:08:39 CDT Jerrica FRANCIS [facility] CPT-45003 Level 4 Est. Patient 14:23:38 CDT Tu Landeros MD [facility] CPT-81226 Level 3 Est. Patient 11:44:04 CDT Tu Landeros MD [facility] CPT-32425 Level 3 Est. Patient 11:03:20 FENCE MACHINE OPERATOR Tu Landeros MD [facility] CPT-10316 Level 3 Est. Patient 11:03:14 FENCE MACHINE OPERATOR Tu Landeros MD [facility] CPT-74705 Level 3 Est. Patient 12:42:49 CDT Tu Landeros MD [facility] CPT-06985 Level 3 Est. Patient 11:52:06 CDT Tu Landeros MD [facility] CPT-86370 Level 3 Est. Patient 13:58:11 CDT Tu Landeros MD [facility] CPT-60743 Level 3 Est. Patient 17:50:07 CDT Fab Morales DO [facility] CPT-17027 Level 3 Est. Patient 12:06:29 CDT Elvira Cervantes MD, PhD [facility] CPT-15248 Level 3 Est. Patient 15:50:32 CDT Tu Landeros MD [facility] CPT-33958 Level 4 Est. Patient 16:08:29 CDT Tu Landeros MD [facility] CPT-07715 Level 3 Est. Patient 16:04:19 CDT Tu Landeros MD [facility] CPT-24421 Level 3 Est. Patient 11:22:30 FENCE MACHINE OPERATOR Tu Landeros MD [facility] CPT-71471 Level 4 Est. Patient 16:24:02 FENCE MACHINE OPERATOR Tu Landeros MD [facility] CPT-04066 Level 3 Est. Patient 17:21:23 FENCE MACHINE OPERATOR Tu Landeros MD [facility] Procedures Code Procedure Name Date Entry Date Standard Description CPT-G0438 Initial Annual Wellness Exam 14:13:04 CDT CPT-68858 Breathing Tx 10:06:54 FENCE MACHINE OPERATOR CPT-09761 Postop F/U Visit 10:02:45 CDT CPT-LR Lesion Removal 09:02:56 CDT CPT-JTINJ Asp/Joint Injection 15:51:27 FENCE MACHINE OPERATOR CPT-OV Office Visit 15:52:02 FENCE MACHINE OPERATOR CPT-OV Office Visit 15:45:11 CDT CPT-000 Give Zostavax 14:09:06 CDT CPT-29746 Administration single or combination vaccine inc oral 15 :19:04 CDT CPT-39047 Zoster Vaccine (Zostavax) 15:19:04 CDT CPT-32528 Administration single or combination vaccine inc oral 20 :51:03 CDT CPT-66307 Influenza split virus > age 3 20:51:03 CDT CPT-43375 No Charge Offi Visit 14:52:03 CDT CPT-OV Office Visit 14:57:43 CDT CPT-OV Office Visit 15:22:32 CDT CPT-66386 Administration single or combination vaccine inc oral 11 :33:15 CDT CPT-45529 Influenza split virus > age 3 11:33:15 CDT
--- OUTSIDE RECORDS SUMMARY | 2018-04-25 13:46 | XMS REPORT | Clinical Summary ---
Author Author Admin, SACHI Organization [employer] Address Unknown Phone Unavailable Allergies, Adverse Reactions, [...] climacteric states Sebaceous cyst 706.2 Resolved Tu aLnderos MD Sebaceous cyst Leg edema, bilateral 782.3 [...] magnesium metabolism URI 465.9 Active Lesli Kellogg [employer] Acute upper respiratory infections of unspecified site [...] Generic Name NDC Status Provider Patient Instruction FLUTICASONE PROPIONATE 50 MCG/ACT NASAL SUSPENSION 2 sprays/nostril qd PRN Congestion/Allergies FLUTICASONE PROPIONATE 81001054146 Active Tu Landeros MD Active NASONEX 50 MCG/ACT NASAL SUSPENSION 2 actuations in each nostril q day 07/15 MOMETASONE FUROATE 65667427171 No Longer Active Tu Landeros MD Active GUAIFENESIN ER 600 MG ORAL TABLET EXTENDED RELEASE 12 HOUR 1 twice a day as needed for congestion GUAIFENESIN 51687924851 Active Lesli Kellogg APRN Active MAGNESIUM OXIDE 400 MG ORAL TABLET 1 po BID MAGNESIUM OXIDE 74850534761 Active Tu Landeros MD Active SIMVASTATIN 20 MG ORAL TABLET 0.5 po qHS SIMVASTATIN 31867759495 Active Tu Landeros MD Active DICLOFENAC SODIUM 75 MG ORAL TABLET DELAYED RELEASE 1 po BID PRN Pain DICLOFENAC SODIUM 08929566687 No Longer Active Tu Landeros MD Active GABAPENTIN 100 MG ORAL CAPSULE 1 po TID GABAPENTIN 10830229514 Active Tu Landeros MD Active DICLOFENAC SODIUM 50 MG ORAL TABLET DELAYED RELEASE 1 po BID PRN Pain DICLOFENAC SODIUM 17565967728 No Longer Active Tu Landeros MD Active CYCLOBENZAPRINE HCL 10 MG ORAL TABLET 1 po TID PRN Muscle Spasm CYCLOBENZAPRINE HCL 65872052027 No Longer Active Tu Landeros MD Active INVOKANA 100 MG ORAL TABLET 1 po qd CANAGLIFLOZIN 10554725344 Active Tu Landeros MD Active GLIPIZIDE 5 MG ORAL TABLET 1 po qd GLIPIZIDE 80272529410 No Longer Active Tu Landeros MD Active VENLAFAXINE HCL 75 MG ORAL TABLET 1 po BID VENLAFAXINE HCL 15307682503 Active Tu Landeros MD Active GLIMEPIRIDE 1 MG ORAL TABLET 1 po qd GLIMEPIRIDE 78994164943 No Longer Active Tu Landeros MD Active TRUE METRIX BLOOD GLUCOSE TEST IN VITRO STRIP Test blood sugar BID Dx: E11.9 GLUCOSE BLOOD 46515653990 Active Tu Landeros MD Active TRUE METRIX AIR GLUCOSE METER w/Device KIT Test blood glucose BID Dx: E11.9 BLOOD GLUCOSE MONITORING SUPPL 25913799268 Active Tu Landeros MD Active TRUETEST TEST IN VITRO STRIP test blood sugar twice daily. DX 250.0 GLUCOSE BLOOD 03586755424 No Longer Active Mirna Stanley LPN Active TRUEDRAW LANCING DEVICE test blood sugar twice daily dx: 250.00 LANCET DEVICES 19072749750 No Longer Active Mirna Stanley LPN Active ENALAPRIL MALEATE 20 MG ORAL TABLET 2 po qd ENALAPRIL MALEATE 01232666619 Active Tu Landeros MD Active SUPER B COMPLEX/VITAMIN C ORAL TABLET 1 qd B COMPLEX- C 44015292149 No Longer Active Tu Landeros MD Active ASPIRIN EC 81 MG ORAL TABLET DELAYED RELEASE 1 po qd ASPIRIN 06216685404 Active Tu Landeros MD Active GLUCOSAMINE 500 MG TABS 2 po qd GLUCOSAMINE Active Tu Landeros MD Active FISH OIL 1000 MG ORAL CAPSULE 1 po qd OMEGA-3 FATTY ACIDS 55257819513 Active Tu Landeros MD Active METFORMIN HCL 1000 MG ORAL TABLET 1 po BID METFORMIN HCL 87232289084 Active Tu Landeros MD Active KLOR-CON 10 10 MEQ ORAL TABLET EXTENDED RELEASE 2 po qd POTASSIUM CHLORIDE 98998250209 Active Tu Landeros MD Active FUROSEMIDE 40 MG ORAL TABLET 1 po qd FUROSEMIDE 92418373197 Active Tu Landeros MD Active REQUIP 2 MG ORAL TABLET 1 po qHS PRN Restless legs ROPINIROLE HCL 42175317118 Active Tu Landeros MD Active REQUIP 2 MG ORAL TABLET Take one tablet at bedtime prn ROPINIROLE HCL 20359569549 No Longer Active Tu Landeros MD Active VENTOLIN HFA 108 (90 Base) MCG/ACT INHALATION AEROSOL SOLUTION 1-2 puffs every 4 hours if needed for cough/congestion ALBUTEROL SULFATE 34006062506 No Longer Active Ambika Aden APRN Active ZITHROMAX 250 MG ORAL TABLET 2 po today, then 1 po q days 2-5 AZITHROMYCIN 94165081096 No Longer Active Miranda Farah APRN Active FLONASE 50 MCG/ACT NASAL SUSPENSION 1 spray each nostril twice daily until bottle empty FLUTICASONE PROPIONATE 52429526298 No Longer Active Tu Landeros MD Active COLACE 100 MG ORAL CAPSULE 1 po BID PRN Constipation DOCUSATE SODIUM 18973021254 Active Tu Landeros MD Active TRUERESULT BLOOD GLUCOSE w/Device KIT test blood sugar twice daily dx 250.00 BLOOD GLUCOSE MONITORING SUPPL 71241561222 No Longer Active Tu Landeros MD Active TRUEDRAW LANCING DEVICE Test twice a day dx 250.0 LANCET DEVICES 89348447377 No Longer Active Tu Landeros MD Active PREDNISONE 20 MG ORAL TABLET 2 tablets once daily for 2 days, then 1 tablet once daily for 2 days PREDNISONE 80173326084 No Longer Active Tu Landeros MD Active DICLOFENAC SODIUM 50 MG ORAL TABLET DELAYED RELEASE 1 tablet by mouth three times a day as needed DICLOFENAC SODIUM 31153673537 No Longer Active Fab Morales DO Active EMBRACE BLOOD GLUCOSE TEST IN VITRO STRIP test blood sugar twice daily DX 250.0 GLUCOSE BLOOD 72470262240 No Longer Active Tu Landeros MD Active TRUETEST TEST IN VITRO STRIP test blood sugar three times daily dx: 250.00 GLUCOSE BLOOD 88780614994 No Longer Active Suze VOGEL Active TRUERESULT BLOOD GLUCOSE w/Device KIT use to test blood sugar tid dx: 250.00 BLOOD GLUCOSE MONITORING SUPPL 49541076416 No Longer Active Suze Hardenosbaldo VOGEL Active ALIGN 4 MG ORAL CAPSULE 1 tid PROBIOTIC PRODUCT 29322065664 No Longer Active Shaun Sy MD Active CIPRO 500 MG ORAL TABLET 1 bid x 14 days start 09-28-13 CIPROFLOXACIN HCL 70774069433 No Longer Active Shaun Sy MD Active TRAMADOL HCL 50 MG ORAL TABLET 1-2 tablets every 6 hours as needed for pain TRAMADOL HCL 05184599056 Active Tu Landeros MD Active HYDROCODONE-ACETAMINOPHEN 5-325 MG ORAL TABLET 1 tab by mouth every 6 hours as needed for pain HYDROCODONE-ACETAMINOPHEN 88660530046 No Longer Active Tu Landeros MD Active OMEPRAZOLE 20 MG ORAL CAPSULE DELAYED RELEASE 1 po q a.m. OMEPRAZOLE 79378131708 Active Fab Morales DO Active GABAPENTIN 100 MG ORAL CAPSULE 1 po bid GABAPENTIN 07767155027 No Longer Active Tu Landeros MD Active B-12 100 MCG ORAL TABLET Take one by mouth daily CYANOCOBALAMIN 51258938340 No Longer Active Tu Landeros MD Active BACTRIM DS 800-160 MG ORAL TABLET 1 bid x 14 day start 09-28-13 SULFAMETHOXAZOLE-TRIMETHOPRIM 94549703884 No Longer Active Tu Landeros MD Active CARVEDILOL 12.5 MG ORAL TABLET 1 po BID CARVEDILOL 52580573545 Active Tu Landeros MD Active TRILIPIX 135 MG ORAL CAPSULE DELAYED RELEASE 1 q hs CHOLINE FENOFIBRATE 66853490175 Active Tu Landeros MD Active FENOFIBRATE 145 MG ORAL TABLET 1 po qd FENOFIBRATE 13243373105 No Longer Active Gustavo Norma JASPREET Active OMEPRAZOLE 20 MG ORAL TABLET DELAYED RELEASE 1 PO 30 MIN BEFORE 1ST MEAL 2010 OMEPRAZOLE 25729430034 No Longer Active JASPREET Perez Active SIMVASTATIN 40 MG ORAL TABLET Take one by mouth daily SIMVASTATIN 33168178941 No Longer Active JASPREET Perez Active VENLAFAXINE HCL 75 MG ORAL TABLET 1 po BID VENLAFAXINE HCL 18010994054 No Longer Active Gustavo Norma JASPREET Active CIPRO 500 MG ORAL TABLET 1 tablet by mouth twice daily CIPROFLOXACIN HCL 93803312747 No Longer Active Tu Landeros MD Active VENLAFAXINE HCL 37.5 MG ORAL TABLET 1 po BID VENLAFAXINE HCL 74381352463 No Longer Active Suze NUNO Active LAMISIL 250 MG ORAL TABLET 1 po qd TERBINAFINE HCL 61638090460 No Longer Active Tu Landeros MD Active LORTAB 5-500 MG ORAL TABLET 1/2 to 1 tablet by mouth every 4 hours as needed for pain HYDROCODONE-ACETAMINOPHEN 36951226359 No Longer Active Tu Landeros MD Active HYDROCODONE-ACETAMINOPHEN 5-500 MG ORAL TABLET take one po Q 4-6 hours prn HYDROCODONE-ACETAMINOPHEN 10593579750 No Longer Active Tu Landeros MD Active BACTRIM DS 800-160 MG ORAL TABLET 1 po BID x 7 days SULFAMETHOXAZOLE-TRIMETHOPRIM 91100682045 No Longer Active Tu Landeros MD Active VENLAFAXINE HCL 75 MG ORAL TABLET 1 po BID VENLAFAXINE HCL 36639831937 No Longer Active Elvira Cervantes MD PhD Active TRAMADOL HCL 50 MG ORAL TABLET 1 tablets every 6 hours as needed for pain TRAMADOL HCL 40242287163 No Longer Active Tu Landeros MD Active ACCU-CHEK FASTCLIX LANCETS Use to check bloodsugar three times daily as needed LANCETS 63466965570 No Longer Active Tu Landeros MD Active ACCU-CHEK KEYONA PLUS IN VITRO STRIP Use for testing bloodsugars three times daily as needed GLUCOSE BLOOD 56015938079 No Longer Active Tu Landeros MD Active ACCU-CHEK KEYONA PLUS w/Device KIT Use for testing bloodsugars three times daily as needed BLOOD GLUCOSE MONITORING SUPPL 67534513332 No Longer Active Tu Landeros MD Active SPIRONOLACTONE 25 MG ORAL TABLET 0.5 tablet by mouth daily 09/09 SPIRONOLACTONE 82794636333 No Longer Active Tu Landeros MD Active ALPRAZOLAM 0.5 MG ORAL TABLET 1 tab every 6hrs as needed ALPRAZOLAM 28627157861 No Longer Active Tu Landeros MD Active AUGMENTIN 875-125 MG ORAL TABLET 1 tab by mouth twice daily with food AMOXICILLIN-POT CLAVULANATE 08263135299 No Longer Active Tu Landeros MD Active PREDNISONE 20 MG ORAL TABLET 2 tabs daily for 3 days, 1 tab daily for 3 days, 1/2 tab daily for 2 days PREDNISONE 38773955386 No Longer Active Tu Landeros MD Active XANAX 0.5 MG ORAL TABLET 1 tablet every 6 hrs prn ALPRAZOLAM 64039748993 No Longer Active Tu Landeros MD Active PREDNISONE 20 MG ORAL TABLET 2 tabs daily for 3 days, 1 tab daily for 3 days, 1/2 tab daily for 2 days PREDNISONE 42893600505 No Longer Active Tu Landeros MD Active TRIAMCINOLONE ACETONIDE 0.1 % EXTERNAL OINTMENT Apply to affected areas TID for up to 2 weeks TRIAMCINOLONE ACETONIDE 12598408928 No Longer Active Tu Landeros MD Active LORTAB 5-500 MG ORAL TABLET 1/2 to 1 tablet by mouth every 4 hours as needed for pain HYDROCODONE-ACETAMINOPHEN 11382824927 No Longer Active Tu Landeros MD Active MULTIVITAMINS TABS Take one by mouth daily MULTIPLE VITAMIN 02769986600 No Longer Active Tu Landeros MD Active MELATONIN 5 MG ORAL TABLET Take one by mouth daily MELATONIN 00964712601 No Longer Active Tu Landeros MD Active SOMA 350 MG ORAL TABLET 1 po q 6 hours prn spasm CARISOPRODOL 14535469179 No Longer Active Tu Landeros MD Active MECLIZINE HCL 25 MG ORAL TABLET CHEWABLE 1 four times a day as needed for dizziness MECLIZINE HCL 24045465590 No Longer Active Fab Morales DO Active ANGEL BREEZE 2 TEST IN VITRO DISK test tid prn GLUCOSE BLOOD 67459533637 No Longer Active Negra Scott RN Active REGLAN 10 MG ORAL TABLET 1 po TID PRN Nausea METOCLOPRAMIDE HCL 25387311702 No Longer Active Tu Landeros MD Active METFORMIN HCL 500 MG ORAL TABLET 1 PO BID METFORMIN HCL 66414897627 No Longer Active Tu Landeros MD Active AMBIEN 10 MG ORAL TABLET 1 tab by mouth at bedtime as needed for sleep 06/10 ZOLPIDEM TARTRATE 59876599781 No Longer Active Tu Landeros MD Active FLUOXETINE HCL 40 MG ORAL CAPSULE 1 po q day FLUOXETINE HCL 85281103044 No Longer Active Mayra Terry Active TRILIPIX 135 MG ORAL CAPSULE DELAYED RELEASE 1 po qd CHOLINE FENOFIBRATE 84259869541 No Longer Active Tu Landeros MD Active AMBIEN 10 MG ORAL TABLET 1 tab by mouth at bedtime as needed for sleep 06/10 AMBIEN 10 MG ORAL TABLET 192490 ZOLPIDEM TARTRATE Inactive METFORMIN HCL 500 MG ORAL TABLET 1 PO BID METFORMIN HCL 500 MG ORAL TABLET 248570 METFORMIN HCL Inactive REGLAN 10 MG ORAL TABLET 1 po TID PRN Nausea REGLAN 10 MG ORAL TABLET 191350 METOCLOPRAMIDE HCL Inactive MECLIZINE HCL 25 MG ORAL TABLET CHEWABLE 1 four times a day as needed for dizziness MECLIZINE HCL 25 MG ORAL TABLET CHEWABLE 867206 MECLIZINE HCL Inactive SOMA 350 MG ORAL TABLET 1 po q 6 hours prn spasm SOMA 350 MG ORAL TABLET 744491 CARISOPRODOL Inactive MELATONIN 5 MG ORAL TABLET Take one by mouth daily MELATONIN 5 MG ORAL TABLET 495630 MELATONIN Inactive MULTIVITAMINS TABS Take one by mouth daily MULTIVITAMINS TABS MULTIPLE VITAMIN Inactive LORTAB 5-500 MG ORAL TABLET 1/2 to 1 tablet by mouth every 4 hours as needed for pain LORTAB 5-500 MG ORAL TABLET HYDROCODONE- ACETAMINOPHEN Inactive XANAX 0.5 MG ORAL TABLET 1 tablet every 6 hrs prn XANAX 0.5 MG ORAL TABLET 241412 ALPRAZOLAM Inactive AUGMENTIN 875-125 MG ORAL TABLET 1 tab by mouth twice daily with food AUGMENTIN 875-125 MG ORAL TABLET 719857 AMOXICILLIN-POT CLAVULANATE Inactive ALPRAZOLAM 0.5 MG ORAL TABLET 1 tab every 6hrs as needed ALPRAZOLAM 0.5 MG ORAL TABLET 110366 ALPRAZOLAM Inactive SPIRONOLACTONE 25 MG ORAL TABLET 0.5 tablet by mouth daily 09/09 SPIRONOLACTONE 25 MG ORAL TABLET 431324 SPIRONOLACTONE Inactive ACCU-CHEK KEYONA PLUS w/Device KIT [...] times daily as needed ACCU-CHEK FASTCLIX LANCETS 05988814315 LANCETS Inactive TRAMADOL HCL 50 MG ORAL TABLET 1 tablets every 6 hours as needed for pain TRAMADOL HCL 50 MG ORAL TABLET 621966 TRAMADOL HCL Inactive VENLAFAXINE HCL 75 MG ORAL TABLET 1 po BID VENLAFAXINE HCL 75 MG ORAL TABLET 570348 VENLAFAXINE HCL Inactive HYDROCODONE-ACETAMINOPHEN 5-500 MG ORAL TABLET take one po Q 4-6 hours prn HYDROCODONE-ACETAMINOPHEN 5-500 MG ORAL TABLET 169117 HYDROCODONE-ACETAMINOPHEN Inactive LORTAB 5-500 MG ORAL TABLET 1/2 to 1 tablet by mouth every 4 hours as needed for pain LORTAB 5-500 MG ORAL TABLET HYDROCODONE- ACETAMINOPHEN Inactive LAMISIL 250 MG ORAL TABLET 1 po qd LAMISIL 250 MG ORAL TABLET 457504 TERBINAFINE HCL Inactive VENLAFAXINE HCL 37.5 MG ORAL TABLET 1 po BID VENLAFAXINE HCL 37.5 MG ORAL TABLET 141382 VENLAFAXINE HCL Inactive CIPRO 500 MG ORAL TABLET 1 tablet by mouth twice daily CIPRO 500 MG ORAL TABLET 809097 CIPROFLOXACIN HCL Inactive VENLAFAXINE HCL 75 MG ORAL TABLET 1 po BID VENLAFAXINE HCL 75 MG ORAL TABLET 493456 VENLAFAXINE HCL Inactive SIMVASTATIN 40 MG ORAL TABLET Take one by mouth daily SIMVASTATIN 40 MG ORAL TABLET 903592 SIMVASTATIN Inactive OMEPRAZOLE 20 MG ORAL TABLET DELAYED RELEASE 1 PO 30 MIN BEFORE 1ST MEAL 2010 OMEPRAZOLE 20 MG ORAL TABLET DELAYED RELEASE 253210 OMEPRAZOLE Inactive FENOFIBRATE 145 MG ORAL TABLET 1 po qd FENOFIBRATE 145 MG ORAL TABLET 230066 FENOFIBRATE Inactive BACTRIM DS 800-160 MG ORAL TABLET 1 bid x 14 day start 09-28-13 BACTRIM DS 800-160 MG ORAL TABLET 759093 SULFAMETHOXAZOLE- TRIMETHOPRIM Inactive B-12 100 MCG ORAL TABLET Take one by mouth daily B-12 100 MCG ORAL TABLET CYANOCOBALAMIN Inactive GABAPENTIN 100 MG ORAL CAPSULE 1 po bid GABAPENTIN 100 MG ORAL CAPSULE 967368 GABAPENTIN Inactive HYDROCODONE-ACETAMINOPHEN 5-325 MG ORAL TABLET 1 tab by mouth every 6 hours as needed for pain HYDROCODONE-ACETAMINOPHEN 5-325 MG ORAL TABLET 842494 HYDROCODONE-ACETAMINOPHEN Inactive CIPRO 500 MG ORAL TABLET 1 bid x 14 days start 09-28-13 CIPRO 500 MG ORAL TABLET 845728 CIPROFLOXACIN HCL Inactive ALIGN 4 MG ORAL [...] SODIUM 50 MG ORAL TABLET DELAYED RELEASE 338357 DICLOFENAC SODIUM Inactive PREDNISONE 20 MG ORAL TABLET 2 tablets once daily for 2 days, then 1 tablet once daily for 2 days PREDNISONE 20 MG ORAL TABLET 352380 PREDNISONE Inactive TRUEDRAW LANCING DEVICE Test twice a day dx 250.0 TRUEDRAW LANCING DEVICE LANCET DEVICES Inactive TRUERESULT BLOOD GLUCOSE w/Device KIT test blood sugar twice daily dx 250.00 TRUERESULT BLOOD GLUCOSE w/Device KIT BLOOD GLUCOSE MONITORING SUPPL Inactive FLONASE 50 MCG/ACT NASAL SUSPENSION 1 spray each nostril twice daily until bottle empty FLONASE 50 MCG/ACT NASAL SUSPENSION 3205266 FLUTICASONE PROPIONATE Inactive VENTOLIN HFA 108 (90 Base) MCG/ACT INHALATION AEROSOL SOLUTION 1-2 puffs every 4 hours if needed for cough/congestion VENTOLIN HFA 108 (90 Base) MCG/ACT INHALATION AEROSOL SOLUTION ALBUTEROL SULFATE Inactive REQUIP 2 MG ORAL TABLET Take one tablet at bedtime prn REQUIP 2 MG ORAL TABLET 552258 ROPINIROLE HCL Inactive SUPER B COMPLEX/VITAMIN C ORAL TABLET 1 qd SUPER B COMPLEX/VITAMIN C ORAL TABLET 94930189439 B COMPLEX-C Inactive TRUEDRAW LANCING DEVICE test blood sugar twice daily dx: 250.00 TRUEDRAW LANCING DEVICE LANCET DEVICES Inactive TRUETEST TEST IN VITRO STRIP test blood sugar twice daily. DX 250.0 TRUETEST TEST IN VITRO STRIP GLUCOSE BLOOD Inactive CYCLOBENZAPRINE HCL 10 MG ORAL TABLET 1 po TID PRN Muscle Spasm CYCLOBENZAPRINE HCL 10 MG ORAL TABLET 765014 CYCLOBENZAPRINE HCL Inactive DICLOFENAC SODIUM 50 MG ORAL TABLET DELAYED RELEASE 1 po BID PRN Pain DICLOFENAC SODIUM 50 MG ORAL TABLET DELAYED RELEASE 236452 DICLOFENAC SODIUM Inactive DICLOFENAC SODIUM 75 MG ORAL TABLET DELAYED RELEASE 1 po BID PRN Pain DICLOFENAC SODIUM 75 MG ORAL TABLET DELAYED RELEASE 208468 DICLOFENAC SODIUM Inactive NASONEX 50 MCG/ACT NASAL SUSPENSION 2 actuations in each nostril q day 07/15 NASONEX 50 MCG/ACT NASAL SUSPENSION 2451815 MOMETASONE FUROATE Inactive TRIAMCINOLONE ACETONIDE 0.1 % EXTERNAL OINTMENT Apply to affected areas TID for up to 2 weeks TRIAMCINOLONE ACETONIDE 0.1 % EXTERNAL OINTMENT 6855439 TRIAMCINOLONE ACETONIDE Inactive PREDNISONE 20 MG ORAL TABLET 2 tabs daily for 3 days, 1 tab daily for 3 days, 1/2 tab daily for 2 days PREDNISONE 20 MG ORAL TABLET 621203 PREDNISONE Inactive PREDNISONE 20 MG ORAL TABLET 2 tabs daily for 3 days, 1 tab daily for 3 days, 1/2 tab daily for 2 days PREDNISONE 20 MG ORAL TABLET 004670 PREDNISONE Inactive BACTRIM DS 800-160 MG ORAL TABLET 1 po BID x 7 days BACTRIM DS 800-160 MG ORAL TABLET 565631 SULFAMETHOXAZOLE-TRIMETHOPRIM Inactive ZITHROMAX 250 MG ORAL TABLET 2 po today, then 1 po q days 2-5 ZITHROMAX 250 MG ORAL TABLET 620172 AZITHROMYCIN Inactive Advance Directives Directive Description Start Date DISCUSSED WITH PATIENT -- NO DECISION MADE Immunizations Vaccine Administration Date Value Standard Description Seasonal influenza vaccine, injectable, containing preservative, for > 3 years old (Afluria, FluLaval, Fluzone, Fluvirin, Fluarix, Agriflu(>=18 yo)) Fluzone (>3 yrs.) [[id number]] Influenza, seasonal, injectable influenza immunization (Flu Vax) has been administered 02/22/2012 influenza virus vaccine, unspecified formulation Seasonal influenza vaccine, injectable, containing preservative, for > 3 years old (Afluria, FluLaval, Fluzone, Fluvirin, Fluarix, Agriflu(>=18 yo)) Fluzone (>3 yrs.) [[id number]] Influenza, seasonal, injectable Vital Signs Date Name [...] ... - Chemistry sodium, serum 141 mmol/L 208-054 2096/01/16 carbon dioxide, venous blood 28.3 mmol/L 21.0-32.0 [...] 6.7 % 4.3-6.0 cholesterol, serum 106 mg/dL 802-560 5354/01/16 triglyceride, serum, fasting 173 mg/dL 30-200 HDL [...] A1c - Chemistry cholesterol, serum 135 mg/dL 135-295 1535/05/17 HDL cholesterol, serum 41 mg/dL > OR=46 triglyceride, serum, fasting 206 mg/dL <150 LDL cholesterol, serum 53 MG/DL (CALC) mg/dL <130 cholesterol/HDL ratio, serum 3.3 (calc) < OR=5.0 Lab Report: HGBA1C - Chemistry hemoglobin A1C, blood, as % of total hemoglobin 6.5 % 4.3-6.0 Encounters Code Encounter Date Provider Facility CPT-26110 Level 3 Est. Patient 10:13:19 HIGH MAN Lesli Kellogg APRN [facility] CPT-57471 Level 4 Est. Patient 13:42:02 HIGH MAN Tu Landeros MD [facility] CPT-13661 Level 3 Est. Patient 14:20:36 CDT Tu Landeros MD [facility] CPT-08986 Level 4 Est. Patient 14:28:34 CDT Tu Landeros MD [facility] CPT-07081 Level 3 Est. Patient 13:33:09 CDT Tu Landeros MD [facility] CPT-33179 Level 4 Est. Patient 14:29:21 CDT Tu Landeros MD [facility] CPT-47744 Level 4 Est. Patient 09:08:17 HIGH MAN Tu Landeros MD [facility] CPT-36270 Level 4 Est. Patient 14:40:19 CDT Tu Landeros MD [facility] CPT-92514 Level 4 Est. Patient 14:06:04 HIGH MAN Tu Landeros MD [facility] CPT-00121 Level 3 Est. Patient 14:05:18 HIGH MAN Tu Landeros MD [facility] CPT-31375 Level 3 Est. Patient 10:06:54 HIGH MAN Miranda Farah AMANDA [facility] CPT-13742 Level 4 Est. Patient 13:50:18 HIGH MAN Tu Landeros MD [facility] CPT-38723 Level 3 Est. Patient 10:30:04 CDT Tu Landeros MD [facility] CPT-77188 Level 4 Est. Patient 11:03:38 CDT Tu Landeros MD [facility] CPT-14405 Level 3 Est. Patient 10:20:44 CDT Fab Morales DO [facility] CPT-09911 Level 4 Est. Patient 14:38:57 CDT Tu Landeros MD [facility] CPT-29039 Level 4 Est. Patient 14:27:39 HIGH MAN Tu Landeros MD [facility] CPT-80176 Level 4 Est. Patient 09:45:25 CDT Tu Landeros MD [facility] CPT-66272 Level 4 Est. Patient 09:05:20 HIGH MAN Tu Landeros MD [facility] CPT-92638 Level 4 Est. Patient 14:09:06 CDT Tu Landeros MD [facility] CPT-25637 Level 3 Est. Patient 13:36:54 CDT Tu Landeros MD [facility] CPT-83183 Level 3 Est. Patient 08:59:14 CDT Tu Landeros MD [facility] CPT-33054 Level 3 Est. Patient 13:48:35 CDT Fab Morales DO [facility] CPT-03605 Level 4 Est. Patient 10:05:48 CDT Tu Landeros MD [facility] CPT-16766 Level 3 Est. Patient 13:38:42 CDT Marek BANKS [facility] CPT-39554 Level 5 Est. Patient 08:08:39 CDT Piyushmaeve Richardsonceliatay FRANCIS [facility] CPT-83294 Level 4 Est. Patient 14:23:38 CDT Tu Landeros MD [facility] CPT-55036 Level 3 Est. Patient 11:44:04 CDT Tu Landeros MD [facility] CPT-23048 Level 3 Est. Patient 11:03:20 HIGH MAN Tu Landeros MD [facility] CPT-61293 Level 3 Est. Patient 11:03:14 HIGH MAN Tu Landeros MD [facility] CPT-36760 Level 3 Est. Patient 12:42:49 CDT Tu Landeros MD [facility] CPT-45747 Level 3 Est. Patient 11:52:06 CDT Tu Landeros MD [facility] CPT-88783 Level 3 Est. Patient 13:58:11 CDT Tu Landeros MD [facility] CPT-39592 Level 3 Est. Patient 17:50:07 CDT Fab Morales DO [facility] CPT-10225 Level 3 Est. Patient 12:06:29 CDT Elvira Cervantes MD, PhD [facility] CPT-46243 Level 3 Est. Patient 15:50:32 CDT Tu Landeros MD [facility] CPT-14570 Level 4 Est. Patient 16:08:29 CDT uT Landeros MD [facility] CPT-35715 Level 3 Est. Patient 16:04:19 CDT Tu Landeros MD [facility] CPT-04343 Level 3 Est. Patient 11:22:30 HIGH MAN Tu Landeros MD [facility] CPT-81985 Level 4 Est. Patient 16:24:02 HIGH MAN Tu Landeros MD [facility] CPT-29307 Level 3 Est. Patient 17:21:23 HIGH MAN Tu Landeros MD [facility] Procedures Code Procedure Name Date Entry Date Standard Description CPT-34589 Shoulder, right, comp min 2V - XRAY USE ONLY 13:50:22 CDT CPT-G0009 Administration of Pneumococcal Vaccine 15:08:26 CDT CPT-54334 Prevnar 13 Intramuscular Suspension 15:08:26 CDT 10/08 CPT-G0439 Subsequent Annual Wellness Exam 14:29:22 CDT CPT-82053 Venipuncture Draw Fee 13:15:35 CDT CPT-02635 Magnesium - LAB USE ONLY 11:14:20 HIGH MAN CPT-14478 Lipid - LAB USE ONLY 11:14:20 HIGH MAN CPT-96286 HGBA1C - LAB USE ONLY 11:14:20 HIGH MAN CPT-40770 CMP - LAB USE ONLY 11:14:19 HIGH MAN CPT-40535 CBC - LAB USE ONLY 11:14:19 HIGH MAN CPT-01445 Venipuncture Draw Fee 11:14:18 HIGH MAN CPT-57442 First Vx - Ix admin for Medicare patients 16:46:52 CDT CPT-24822 Fluzone Preservative Free Intramuscular Suspension 16:46 :51 CDT CPT-56878 CBC - LAB USE ONLY 17:14:46 CDT CPT-74277 HGBA1C - LAB USE ONLY 17:14:46 CDT CPT-07537 Venipuncture Draw Fee 17:14:46 CDT CPT-G0438 Initial Annual Wellness Exam 14:13:04 CDT CPT-04748 Breathing Tx 10:06:54 HIGH MAN CPT-38689 Postop F/U Visit 10:02:45 CDT CPT-LR Lesion Removal 09:02:56 CDT CPT-JTINJ Asp/Joint Injection 15:51:27 HIGH MAN CPT-OV Office Visit 15:52:02 HIGH MAN CPT-OV Office Visit 15:45:11 CDT CPT-000 Give Zostavax 14:09:06 CDT CPT-64297 Administration single or combination vaccine inc oral 15 :19:04 CDT CPT-24723 Zoster Vaccine (Zostavax) 15:19:04 CDT CPT-98890 Administration single or combination vaccine inc oral 20 :51:03 CDT CPT-49900 Influenza split virus > age 3 20:51:03 CDT CPT-08184 No Charge Offi Visit 14:52:03 CDT CPT-OV Office Visit 14:57:43 CDT CPT-OV Office Visit 15:22:32 CDT CPT-29890 Administration single or combination vaccine inc oral 11 :33:15 CDT CPT-74499 Influenza split virus > age 3 11:33:15 CDT
--- OUTSIDE RECORDS SUMMARY | 2018-04-25 13:47 | XMS REPORT | Clinical Summary ---
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 Inactive uT Landeros MD ONYCHOMYCOSIS ICD-110.1 Inactive Tu Landeros [...] hours if needed for cough/congestion ALBUTEROL SULFATE 97137791860 Active Miranda Suresh APRN Active ZITHROMAX 250 MG TAB 2 po today, then 1 po q days 2-5 AZITHROMYCIN 94479596525 No Longer Active Miranda Suresh APRN Active METFORMIN HCL 1000 MG TABS 1 tablet by mouth twice daily METFORMIN HCL 06212478198 Active Tu Landeros MD Active FLONASE 50 MCG/ACT SUSP 1 spray each nostril twice daily until bottle empty FLUTICASONE PROPIONATE 34958154058 No Longer Active Tu Landeros MD Active COLACE 100 MG CAP 1 po BID PRN Constipation DOCUSATE SODIUM 29942448200 Active Tu Landeros MD Active SIMVASTATIN 40 MG TABS 0.5 tab daily at bedtime SIMVASTATIN 09791386221 Active JASPREET Moffett Active TRUERESULT BLOOD GLUCOSE W/DEVICE KIT test blood sugar twice daily dx 250.00 BLOOD GLUCOSE MONITORING SUPPL 01211245172 No Longer Active Tu Landeros MD Active TRUEDRAW LANCING DEVICE MISC Test twice a day dx 250.0 LANCET DEVICES 83931835620 No Longer Active Tu Landeros MD Active PREDNISONE 20 MG TAB 2 tablets once daily for 2 days, then 1 tablet once daily for 2 days PREDNISONE 67835548627 No Longer Active Tu Landeros MD Active DICLOFENAC SODIUM 50 MG TBEC 1 tablet by mouth three times a day as needed DICLOFENAC SODIUM 42065847244 No Longer Active Fab Morales DO Active TRUEDRAW LANCING DEVICE MISC test blood sugar twice daily dx: 250.00 LANCET DEVICES 20628140063 Active Tu Landeros MD Active TRUETEST TEST INVITR STRP test blood sugar twice daily. DX 250.0 GLUCOSE BLOOD 38660240991 Active Tu Landeros MD Active EMBRACE BLOOD GLUCOSE TEST STRP test blood sugar twice daily DX 250.0 2014 GLUCOSE BLOOD 41093841713 No Longer Active Tu Landeros MD Active TRUETEST TEST STRP test blood sugar three times daily dx: 250.00 GLUCOSE BLOOD 55906500527 No Longer Active Suze VOGEL Active TRUERESULT BLOOD GLUCOSE W/DEVICE KIT use to test blood sugar tid dx: 250.00 BLOOD GLUCOSE MONITORING SUPPL 32075409763 No Longer Active Suzebianca VOGEL Active ALIGN 4 MG CAPS 1 tid PROBIOTIC PRODUCT 78911394684 No Longer Active Shaun Sy MD Active CIPRO 500 MG TABS 1 bid x 14 days start 09-28-13 CIPROFLOXACIN HCL 56330494320 No Longer Active Shaun Sy MD Active TRAMADOL HCL 50 MG TABS 1-2 tablets every 6 hours as needed for pain TRAMADOL HCL 46490844974 Active Simon Smith MD Active HYDROCODONE-ACETAMINOPHEN 5-325 MG TABS 1 tab by mouth every 6 hours as needed for pain HYDROCODONE-ACETAMINOPHEN 10599125172 No Longer Active Tu Landeros MD Active OMEPRAZOLE 20 MG CPDR 1 po q a.m. OMEPRAZOLE 37711278598 Active Tu Landeros MD Active GABAPENTIN 100 MG CAPS 1 po bid GABAPENTIN 09435540529 No Longer Active Tu Landeros MD Active B-12 100 MCG TABS Take one by mouth daily CYANOCOBALAMIN 20588076550 No Longer Active Tu Landeros MD Active GABAPENTIN 100 MG CAPS by mouth twice a day GABAPENTIN 17833882270 Active Tu Landeros MD Active BACTRIM DS 800-160 MG TABS 1 bid x 14 day start 09-28-13 SULFAMETHOXAZOLE-TRIMETHOPRIM 43057684382 No Longer Active Tu Landeros MD Active CARVEDILOL 12.5 MG TABS 1 po BID CARVEDILOL 83006350000 Active Tu Landeros MD Active SUPER B COMPLEX/VITAMIN C TABS 1 qd B COMPLEX-C 38867803874 Active JASPREET Perez Active TRILIPIX 135 MG CPDR 1 q hs CHOLINE FENOFIBRATE 28878691473 Active Tu Landeros MD Active FENOFIBRATE 145 MG TABS 1 po qd FENOFIBRATE 08944194979 No Longer Active JASPREET Perez Active OMEPRAZOLE 20 MG TBEC 1 PO 30 MIN BEFORE 1ST MEAL OMEPRAZOLE 67645203085 No Longer Active JASPREET Perez Active SIMVASTATIN 40 MG TABS Take one by mouth daily SIMVASTATIN 13565012161 No Longer Active JASPREET Perez Active VENLAFAXINE HCL 37.5 MG TABS 1 bid VENLAFAXINE HCL 61731215095 Active Tu Landeros MD Active VENLAFAXINE HCL 75 MG TABS 1 po BID VENLAFAXINE HCL 75736126799 No Longer Active JASPREET Perez Active CIPRO 500 MG TAB 1 tablet by mouth twice daily CIPROFLOXACIN HCL 04341870484 No Longer Active Tu Landeros MD Active VENLAFAXINE HCL 37.5 MG TABS 1 po BID VENLAFAXINE HCL 75640382709 No Longer Active Suzebianca NUNOA Active LAMISIL 250 MG TAB 1 po qd TERBINAFINE HCL 78291051946 No Longer Active Tu Landeros MD Active LORTAB 5 5-500 MG TABS 1/2 to 1 tablet by mouth every 4 hours as needed for pain HYDROCODONE-ACETAMINOPHEN 80321193989 No Longer Active Tu Landeros MD Active ENALAPRIL MALEATE 20 MG TABS 1.5 po qd ENALAPRIL MALEATE 62664907842 Active Tu Landeros MD Active HYDROCODONE-ACETAMINOPHEN 5-500 MG TABS take one po Q 4-6 hours prn HYDROCODONE-ACETAMINOPHEN 41804595336 No Longer Active Tu Landeros MD Active BACTRIM DS 800-160 MG TABS 1 po BID x 7 days SULFAMETHOXAZOLE-TRIMETHOPRIM 15279942381 No Longer Active Tu Landeros MD Active VENLAFAXINE HCL 75 MG TABS 1 po BID VENLAFAXINE HCL 25499244348 No Longer Active Elvira Cervantes MD PhD Active TRAMADOL HCL 50 MG TABS 1 tablets every 6 hours as needed for pain TRAMADOL HCL 37931151238 No Longer Active Tu Landeros MD Active ACCU-CHEK FASTCLIX LANCETS MISC Use to check bloodsugar three times daily as needed LANCETS 37426159506 No Longer Active Tu Landeros MD Active ACCU-CHEK KEYONA PLUS STRP Use for testing bloodsugars three times daily as needed GLUCOSE BLOOD 13890777886 No Longer Active Tu Landeros MD Active ACCU-CHEK KEYONA PLUS W/DEVICE KIT Use for testing bloodsugars three times daily as needed BLOOD GLUCOSE MONITORING SUPPL 11698835499 No Longer Active Tu Landeros MD Active SPIRONOLACTONE 25 MG TAB 0.5 tablet by mouth daily SPIRONOLACTONE 61677550777 No Longer Active Tu Landeros MD Active ALPRAZOLAM 0.5 MG TABS 1 tab every 6hrs as needed ALPRAZOLAM 61946657911 No Longer Active Tu Landeros MD Active AUGMENTIN 875-125 MG TAB 1 tab by mouth twice daily with food AMOXICILLIN-POT CLAVULANATE 01823350256 No Longer Active Tu Landeros MD Active PREDNISONE 20 MG TAB 2 tabs daily for 3 days, 1 tab daily for 3 days, 1/2 tab daily for 2 days PREDNISONE 12083544147 No Longer Active Tu Landeros MD Active XANAX 0.5 MG TABS 1 tablet every 6 hrs prn ALPRAZOLAM 21260179489 No Longer Active Tu Landeros MD Active PREDNISONE 20 MG TAB 2 tabs daily for 3 days, 1 tab daily for 3 days, 1/2 tab daily for 2 days PREDNISONE 86773475673 No Longer Active Tu Landeros MD Active TRIAMCINOLONE ACETONIDE 0.1 % OINT Apply to affected areas TID for up to 2 weeks TRIAMCINOLONE ACETONIDE 89425406602 No Longer Active Tu Landeros MD Active LORTAB 5 5-500 MG TABS 1/2 to 1 tablet by mouth every 4 hours as needed for pain HYDROCODONE-ACETAMINOPHEN 06951888385 No Longer Active Tu Landeros MD Active MULTIVITAMINS TABS Take one by mouth daily MULTIPLE VITAMIN 05289969220 No Longer Active Tu Landeros MD Active MELATONIN 5 MG TABS Take one by mouth daily MELATONIN 88598429101 No Longer Active Tu Landeros MD Active SOMA 350 MG TAB 1 po q 6 hours prn spasm CARISOPRODOL 35560992603 No Longer Active Tu Landeros MD Active MECLIZINE HCL 25 MG CHEW TAB 1 four times a day as needed for dizziness 08/05 MECLIZINE HCL 66920093729 No Longer Active Fab Morales DO Active ANGEL BREEZE 2 TEST DISK test tid prn GLUCOSE BLOOD 51078799451 No Longer Active Negra Scott RN Active REGLAN 10 MG TAB 1 po TID PRN Nausea METOCLOPRAMIDE HCL 90334381714 No Longer Active Tu Landeros MD Active METFORMIN HCL 500 MG TABS 1 PO BID METFORMIN HCL 83831711208 No Longer Active Tu Landeros MD Active AMBIEN 10 MG TAB 1 tab by mouth at bedtime as needed for sleep ZOLPIDEM TARTRATE 51454072302 No Longer Active Tu Landeros MD Active FLUOXETINE HCL 40 MG CAPS 1 po q day FLUOXETINE HCL 07545264403 No Longer Active Mayra Terry Active FISH OIL 1000 MG CAPS Take one by mouth daily OMEGA-3 FATTY ACIDS 39955134342 Active Tu Landeros MD Active GLUCOSAMINE 500 MG TABS Take 2 tab po qd GLUCOSAMINE 48111133959 Active Tu Landeros MD Active TRILIPIX 135 MG CPDR 1 po qd CHOLINE FENOFIBRATE 52576364370 No Longer Active Tu Landeros MD Active ASPIRIN 81 MG CHEW TAB 1 tablet by mouth daily ASPIRIN 34961927417 Active Tu Landeros MD Active FUROSEMIDE 40 MG TAB 1 tablet by mouth daily FUROSEMIDE 77146772206 Active Tu Landeros MD Active REQUIP 2 MG TABS Take one tablet at bedtime prn ROPINIROLE HCL 80252150994 Active Tu Landeros MD Active KLOR-CON 10 10 MEQ CR-TABS TAKE 2 TABS DAILY POTASSIUM CHLORIDE 93918526307 Active Tu Landeros MD Active AMBIEN 10 MG TAB 1 tab by mouth at bedtime as needed for sleep AMBIEN 10 MG TAB 468383 ZOLPIDEM TARTRATE Inactive METFORMIN HCL 500 MG TABS 1 PO BID METFORMIN HCL 500 MG TABS 101563 METFORMIN HCL Inactive REGLAN 10 MG TAB 1 po TID PRN Nausea REGLAN 10 MG TAB 005294 METOCLOPRAMIDE HCL Inactive MECLIZINE HCL 25 MG CHEW TAB 1 four times a day as needed for dizziness 08/05 MECLIZINE HCL 25 MG CHEW TAB 322651 MECLIZINE HCL Inactive SOMA 350 MG TAB 1 po q 6 hours prn spasm SOMA 350 MG TAB 673655 CARISOPRODOL Inactive MELATONIN 5 MG TABS Take one by mouth daily MELATONIN 5 MG TABS 078237 MELATONIN Inactive MULTIVITAMINS TABS Take one by mouth daily MULTIVITAMINS TABS MULTIPLE VITAMIN Inactive LORTAB 5 5-500 MG TABS 1/2 to 1 tablet by mouth every 4 hours as needed for pain LORTAB 5 5-500 MG TABS HYDROCODONE- ACETAMINOPHEN Inactive XANAX 0.5 MG TABS 1 tablet every 6 hrs prn XANAX 0.5 MG TABS 631314 ALPRAZOLAM Inactive AUGMENTIN 875-125 MG TAB 1 tab by mouth twice daily with food AUGMENTIN 875-125 MG TAB 687297 AMOXICILLIN-POT CLAVULANATE Inactive ALPRAZOLAM 0.5 MG TABS 1 tab every 6hrs as needed ALPRAZOLAM 0.5 MG TABS 493683 ALPRAZOLAM Inactive SPIRONOLACTONE 25 MG TAB 0.5 tablet by mouth daily SPIRONOLACTONE 25 MG TAB 714606 SPIRONOLACTONE Inactive ACCU-CHEK KEYONA PLUS W/DEVICE KIT Use for testing bloodsugars three times daily as needed ACCU-CHEK KEYONA PLUS W/DEVICE KIT BLOOD GLUCOSE MONITORING SUPPL Inactive ACCU-CHEK KEYONA PLUS STRP Use for testing bloodsugars three times daily as needed ACCU-CHEK KEYONA PLUS STRP GLUCOSE BLOOD Inactive ACCU-CHEK FASTCLIX LANCETS MISC Use to check bloodsugar three times daily as needed ACCU-CHEK FASTCLIX LANCETS MISC 34876155718 LANCETS Inactive TRAMADOL HCL 50 MG TABS 1 tablets every 6 hours as needed for pain TRAMADOL HCL 50 MG TABS 807926 TRAMADOL HCL Inactive VENLAFAXINE HCL 75 MG TABS 1 po BID VENLAFAXINE HCL 75 MG TABS 881234 VENLAFAXINE HCL Inactive HYDROCODONE-ACETAMINOPHEN 5-500 MG TABS take one po Q 4-6 hours prn HYDROCODONE-ACETAMINOPHEN 5-500 MG TABS HYDROCODONE- ACETAMINOPHEN Inactive LORTAB 5 5-500 MG TABS 1/2 to 1 tablet by mouth every 4 hours as needed for pain LORTAB 5 5-500 MG TABS HYDROCODONE- ACETAMINOPHEN Inactive LAMISIL 250 MG TAB 1 po qd LAMISIL 250 MG TAB 750086 TERBINAFINE HCL Inactive VENLAFAXINE HCL 37.5 MG TABS 1 po BID VENLAFAXINE HCL 37.5 MG TABS 558186 VENLAFAXINE HCL Inactive CIPRO 500 MG TAB 1 tablet by mouth twice daily CIPRO 500 MG TAB 290084 CIPROFLOXACIN HCL Inactive VENLAFAXINE HCL 75 MG TABS 1 po BID VENLAFAXINE HCL 75 MG TABS 025194 VENLAFAXINE HCL Inactive SIMVASTATIN 40 MG TABS Take one by mouth daily SIMVASTATIN 40 MG TABS 112185 SIMVASTATIN Inactive OMEPRAZOLE 20 MG TBEC 1 PO 30 MIN BEFORE 1ST MEAL OMEPRAZOLE 20 MG TBEC 428088 OMEPRAZOLE Inactive FENOFIBRATE 145 MG TABS 1 po qd FENOFIBRATE 145 MG TABS 305456 FENOFIBRATE Inactive BACTRIM DS 800-160 MG TABS 1 bid x 14 day start 09-28-13 BACTRIM DS 800-160 MG TABS 744556 SULFAMETHOXAZOLE-TRIMETHOPRIM Inactive B-12 100 MCG TABS Take one by mouth daily B-12 100 MCG TABS CYANOCOBALAMIN Inactive GABAPENTIN 100 MG CAPS 1 po bid GABAPENTIN 100 MG CAPS 124853 GABAPENTIN Inactive HYDROCODONE-ACETAMINOPHEN 5-325 MG TABS 1 tab by mouth every 6 hours as needed for pain HYDROCODONE-ACETAMINOPHEN 5-325 MG TABS 416796 HYDROCODONE-ACETAMINOPHEN Inactive CIPRO 500 MG TABS 1 bid x 14 days start 09-28-13 CIPRO 500 MG TABS 499856 CIPROFLOXACIN HCL Inactive ALIGN 4 MG CAPS [...] as needed DICLOFENAC SODIUM 50 MG TBEC 079653 DICLOFENAC SODIUM Inactive PREDNISONE 20 MG TAB 2 tablets once daily for 2 days, then 1 tablet once daily for 2 days PREDNISONE 20 MG TAB 864926 PREDNISONE Inactive TRUEDRAW LANCING DEVICE MISC Test [...] 2 weeks TRIAMCINOLONE ACETONIDE 0.1 % OINT 9553873 TRIAMCINOLONE ACETONIDE Inactive PREDNISONE 20 MG TAB 2 tabs daily for 3 days, 1 tab daily for 3 days, 1/2 tab daily for 2 days PREDNISONE 20 MG TAB 266585 PREDNISONE Inactive PREDNISONE 20 MG TAB 2 tabs daily for 3 days, 1 tab daily for 3 days, 1/2 tab daily for 2 days PREDNISONE 20 MG TAB 845035 PREDNISONE Inactive BACTRIM DS 800-160 MG TABS 1 po BID x 7 days BACTRIM DS 800-160 MG TABS 668200 SULFAMETHOXAZOLE-TRIMETHOPRIM Inactive ZITHROMAX 250 MG TAB 2 po today, then 1 po q days 2-5 ZITHROMAX 250 MG TAB 8696149 AZITHROMYCIN Inactive Immunizations Vaccine Administration Date Value Standard Description Seasonal influenza vaccine, injectable, containing preservative, for > 3 years old (Afluria, FluLaval, Fluzone, Fluvirin, Fluarix, Agriflu(>=18 yo)) Fluzone (>3 yrs.) [[id number]] Influenza, seasonal, injectable influenza immunization (Flu Vax) has been administered 02/22/2012 influenza virus vaccine, unspecified formulation Seasonal influenza vaccine, injectable, containing preservative, for > 3 years old (Afluria, FluLaval, Fluzone, Fluvirin, Fluarix, Agriflu(>=18 yo)) Fluzone (>3 yrs.) [[id number]] Influenza, seasonal, injectable Vital Signs Date Name [...] MICROALBUMIN - Chemistry sodium, serum 142 mmol/L 432-487 2073/10/08 potassium, serum 4.5 mmol/L 3.5-5.2 chloride, serum [...] 0.30 mg/dL 0.00-1.00 cholesterol, serum 111 mg/dL 681-311 1390/07/28 triglyceride, serum, fasting 177 mg/dL 30-200 HDL [...] Panel - Chemistry cholesterol, serum 124 mg/dL 043-542 9339/01/12 triglyceride, serum, fasting 135 mg/dL 30-200 HDL cholesterol, serum 41 mg/dL 32-96 LDL cholesterol, serum 56 mg/dL 0-130 sodium, serum 140 mmol/L 191-234 5936/01/12 carbon dioxide, venous blood 27.7 mmol/L 21.0-32.0 potassium, serum 4.5 mmol/L 3.5-5.2 chloride, serum 104 mmol/L 98-107 blood glucose 139 mg/dL 65-110 urea nitrogen, blood 16 mg/dL 7-18 alanine aminotransferase (SGPT), serum 32 U/L 12-78 aspartate aminotransferase (SGOT), serum 25 U/L 15-37 calcium, serum 9.1 mg/dL 8.5-10.1 bilirubin, serum, total 0.50 mg/dL 0.00-1.00 Encounters Code Encounter Date Provider Facility CPT-25757 Level 4 Est. Patient 14:06:04 WORKER'S COMPENSATION CLAIMS EXAMINER Tu Landeros MD [facility] CPT-56643 Level 3 Est. Patient 14:05:18 WORKER'S COMPENSATION CLAIMS EXAMINER Tu Landeros MD [facility] CPT-61513 Level 3 Est. Patient 10:06:54 WORKER'S COMPENSATION CLAIMS EXAMINER Miranda Suresh APRN [facility] CPT-51242 Level 4 Est. Patient 13:50:18 WORKER'S COMPENSATION CLAIMS EXAMINER Tu Landeros MD [facility] CPT-30205 Level 3 Est. Patient 10:30:04 CDT Tu Landeros MD [facility] CPT-68074 Level 4 Est. Patient 11:03:38 CDT Tu Landeros MD [facility] CPT-05619 Level 3 Est. Patient 10:20:44 CDT Fab Moralse DO [facility] CPT-89617 Level 4 Est. Patient 14:38:57 CDT Tu Landeros MD [facility] CPT-72250 Level 4 Est. Patient 14:27:39 WORKER'S COMPENSATION CLAIMS EXAMINER Tu Landeros MD [facility] CPT-70251 Level 4 Est. Patient 09:45:25 CDT Tu Landeros MD [facility] CPT-54245 Level 4 Est. Patient 09:05:20 WORKER'S COMPENSATION CLAIMS EXAMINER Tu Landeros MD [facility] CPT-51002 Level 4 Est. Patient 14:09:06 CDT Tu Landeros MD [facility] CPT-29873 Level 3 Est. Patient 13:36:54 CDT Tu Landeros MD [facility] CPT-25864 Level 3 Est. Patient 08:59:14 CDT Tu Landeros MD [facility] CPT-38739 Level 3 Est. Patient 13:48:35 CDT Fab Morales DO [facility] CPT-21414 Level 4 Est. Patient 10:05:48 CDT Tu Landeros MD [facility] CPT-64021 Level 3 Est. Patient 13:38:42 CDT Marek BANKS [facility] CPT-19383 Level 5 Est. Patient 08:08:39 CDT Jerrica FRANCIS [facility] CPT-85873 Level 4 Est. Patient 14:23:38 CDT Tu Landeros MD [facility] CPT-61257 Level 3 Est. Patient 11:44:04 CDT Tu Landeros MD [facility] CPT-12491 Level 3 Est. Patient 11:03:20 WORKER'S COMPENSATION CLAIMS EXAMINER Tu Landeros MD [facility] CPT-88340 Level 3 Est. Patient 11:03:14 WORKER'S COMPENSATION CLAIMS EXAMINER Tu Landeros MD [facility] CPT-69571 Level 3 Est. Patient 12:42:49 CDT Tu Landeros MD [facility] CPT-31747 Level 3 Est. Patient 11:52:06 CDT Tu Landeros MD [facility] CPT-30447 Level 3 Est. Patient 13:58:11 CDT Tu Landeros MD [facility] CPT-33400 Level 3 Est. Patient 17:50:07 CDT Fab Morales DO [facility] CPT-40434 Level 3 Est. Patient 12:06:29 CDT Elvira Cervantes MD, PhD [facility] CPT-84911 Level 3 Est. Patient 15:50:32 CDT Tu Landeros MD [facility] CPT-66545 Level 4 Est. Patient 16:08:29 CDT Tu Landeros MD [facility] CPT-03010 Level 3 Est. Patient 16:04:19 CDT Tu Landeros MD [facility] CPT-13366 Level 3 Est. Patient 11:22:30 WORKER'S COMPENSATION CLAIMS EXAMINER Tu Landeros MD [facility] CPT-52926 Level 4 Est. Patient 16:24:02 WORKER'S COMPENSATION CLAIMS EXAMINER Tu Landeros MD [facility] CPT-93858 Level 3 Est. Patient 17:21:23 WORKER'S COMPENSATION CLAIMS EXAMINER Tu Landeros MD [facility] Procedures Code Procedure Name Date Entry Date Standard Description CPT-95712 Breathing Tx 10:06:54 WORKER'S COMPENSATION CLAIMS EXAMINER CPT-88066 Postop F/U Visit 10:02:45 CDT CPT-LR Lesion Removal 09:02:56 CDT CPT-JTINJ Asp/Joint Injection 15:51:27 WORKER'S COMPENSATION CLAIMS EXAMINER CPT-OV Office Visit 15:52:02 WORKER'S COMPENSATION CLAIMS EXAMINER CPT-OV Office Visit 15:45:11 CDT CPT-000 Give Zostavax 14:09:06 CDT CPT-28004 Administration single or combination vaccine inc oral 15 :19:04 CDT CPT-39656 Zoster Vaccine (Zostavax) 15:19:04 CDT CPT-87294 Administration single or combination vaccine inc oral 20 :51:03 CDT CPT-22855 Influenza split virus > age 3 20:51:03 CDT CPT-27167 No Charge Offi Visit 14:52:03 CDT CPT-OV Office Visit 14:57:43 CDT CPT-OV Office Visit 15:22:32 CDT CPT-18932 Administration single or combination vaccine inc oral 11 :33:15 CDT CPT-81188 Influenza split virus > age 3 11:33:15 CDT
--- OUTSIDE RECORDS SUMMARY | 2018-04-25 13:49 | XMS REPORT | Clinical Summary ---
Author Author Admin, SACHI Organization Current Media Address Unknown Phone Unavailable Allergies, Adverse Reactions, [...] blood sugar BID Dx: E11.9 GLUCOSE BLOOD 33674539326 Active Tu Landeros MD Active TRUE METRIX AIR GLUCOSE METER W/DEVICE KIT Test blood glucose BID Dx: E11.9 BLOOD GLUCOSE MONITORING SUPPL 27841696060 Active Tu Landeros MD Active TRUETEST TEST INVITR STRP test blood sugar twice daily. DX 250.0 GLUCOSE BLOOD 18121626090 No Longer Active Mirna Stanley LPN Active TRUEDRAW LANCING DEVICE MISC test blood sugar twice daily dx: 250.00 LANCET DEVICES 94114308250 No Longer Active Mirna Stanley LPN Active ENALAPRIL MALEATE 20 MG TABS 2 po qd ENALAPRIL MALEATE 50261969923 Active Tu Landeros MD Active SUPER B COMPLEX/VITAMIN C TABS 1 qd B COMPLEX-C 60430454099 No Longer Active Tu Landeros MD Active ASPIRIN EC 81 MG ORAL TBEC 1 po qd ASPIRIN 85696675282 Active Tu Landeros MD Active GLUCOSAMINE 500 MG TABS 2 po qd GLUCOSAMINE Active Tu Landeros MD Active SIMVASTATIN 40 MG TABS 0.5 po qHS SIMVASTATIN 44108648552 Active Tu Landeros MD Active FISH OIL 1000 MG CAPS 1 po qd OMEGA-3 FATTY ACIDS 31057300399 Active Tu Landeros MD Active METFORMIN HCL 1000 MG TABS 1 po BID METFORMIN HCL 45546177733 Active Tu Landeros MD Active KLOR-CON 10 10 MEQ CR-TABS 2 po qd POTASSIUM CHLORIDE 47097584192 Active Tu Landeros MD Active FUROSEMIDE 40 MG TAB 1 po qd FUROSEMIDE 16273363460 Active Tu Landeros MD Active REQUIP 2 MG ORAL TABS 1 po qHS PRN Restless legs ROPINIROLE HCL 78911295829 Active Tu Landeros MD Active VENLAFAXINE HCL 37.5 MG TABS 1 po BID VENLAFAXINE HCL 84259872777 Active Tu Landeros MD Active GABAPENTIN 100 MG CAPS 1 po BID GABAPENTIN 83445319598 Active Tu Landeros MD Active REQUIP 2 MG TABS Take one tablet at bedtime prn ROPINIROLE HCL 95297814222 No Longer Active Tu Landeros MD Active VENTOLIN HFA 108 (90 BASE) MCG/ACT AERS 1-2 puffs every 4 hours if needed for cough/congestion ALBUTEROL SULFATE 02597434848 No Longer Active Ambika Aden APRN Active ZITHROMAX 250 MG TAB 2 po today, then 1 po q days 2-5 AZITHROMYCIN 05355931067 No Longer Active Miranda Suresh APRN Active FLONASE 50 MCG/ACT SUSP 1 spray each nostril twice daily until bottle empty FLUTICASONE PROPIONATE 98533727029 No Longer Active Tu Landeros MD Active COLACE 100 MG CAP 1 po BID PRN Constipation DOCUSATE SODIUM 01048114572 Active Tu Landeros MD Active TRUERESULT BLOOD GLUCOSE W/DEVICE KIT test blood sugar twice daily dx 250.00 BLOOD GLUCOSE MONITORING SUPPL 70591894984 No Longer Active Tu Landeros MD Active TRUEDRAW LANCING DEVICE MISC Test twice a day dx 250.0 LANCET DEVICES 60729080770 No Longer Active Tu Landeros MD Active PREDNISONE 20 MG TAB 2 tablets once daily for 2 days, then 1 tablet once daily for 2 days PREDNISONE 58257875727 No Longer Active Tu Landeros MD Active DICLOFENAC SODIUM 50 MG TBEC 1 tablet by mouth three times a day as needed DICLOFENAC SODIUM 57750859553 No Longer Active Fab Morales DO Active EMBRACE BLOOD GLUCOSE TEST STRP test blood sugar twice daily DX 250.0 2014 GLUCOSE BLOOD 30104256518 No Longer Active Tu Landeros MD Active TRUETEST TEST STRP test blood sugar three times daily dx: 250.00 GLUCOSE BLOOD 38198827794 No Longer Active Suzebianca VOGEL Active TRUERESULT BLOOD GLUCOSE W/DEVICE KIT use to test blood sugar tid dx: 250.00 BLOOD GLUCOSE MONITORING SUPPL 34965297138 No Longer Active Suze VOGEL Active ALIGN 4 MG CAPS 1 tid PROBIOTIC PRODUCT 49074251011 No Longer Active Shaun Sy MD Active CIPRO 500 MG TABS 1 bid x 14 days start 09-28-13 CIPROFLOXACIN HCL 91959978405 No Longer Active Shaun Sy MD Active TRAMADOL HCL 50 MG TABS 1-2 tablets every 6 hours as needed for pain TRAMADOL HCL 88061366965 Active Tu Landeros MD Active HYDROCODONE-ACETAMINOPHEN 5-325 MG TABS 1 tab by mouth every 6 hours as needed for pain HYDROCODONE-ACETAMINOPHEN 34980924570 No Longer Active Tu Landeros MD Active OMEPRAZOLE 20 MG CPDR 1 po q a.m. OMEPRAZOLE 70274615181 Active Tu Landeros MD Active GABAPENTIN 100 MG CAPS 1 po bid GABAPENTIN 93022505128 No Longer Active Tu Landeros MD Active B-12 100 MCG TABS Take one by mouth daily CYANOCOBALAMIN 59707498954 No Longer Active Tu Landeros MD Active BACTRIM DS 800-160 MG TABS 1 bid x 14 day start 09-28-13 SULFAMETHOXAZOLE-TRIMETHOPRIM 62699861141 No Longer Active Tu Landeros MD Active CARVEDILOL 12.5 MG TABS 1 po BID CARVEDILOL 20710699125 Active Tu Landeros MD Active TRILIPIX 135 MG CPDR 1 q hs CHOLINE FENOFIBRATE 82823269165 Active Tu Landeros MD Active FENOFIBRATE 145 MG TABS 1 po qd FENOFIBRATE 22159549332 No Longer Active JASPREET Perez Active OMEPRAZOLE 20 MG TBEC 1 PO 30 MIN BEFORE 1ST MEAL OMEPRAZOLE 43813776756 No Longer Active JASPREET Perez Active SIMVASTATIN 40 MG TABS Take one by mouth daily SIMVASTATIN 10952453004 No Longer Active JASPREET Perez Active VENLAFAXINE HCL 75 MG TABS 1 po BID VENLAFAXINE HCL 30788173658 No Longer Active JASPREET Perez Active CIPRO 500 MG TAB 1 tablet by mouth twice daily CIPROFLOXACIN HCL 83835820140 No Longer Active Tu Landeros MD Active VENLAFAXINE HCL 37.5 MG TABS 1 po BID VENLAFAXINE HCL 76358926667 No Longer Active Suzecandido NUNOA Active LAMISIL 250 MG TAB 1 po qd TERBINAFINE HCL 66517727186 No Longer Active Tu Landeros MD Active LORTAB 5 5-500 MG TABS 1/2 to 1 tablet by mouth every 4 hours as needed for pain HYDROCODONE-ACETAMINOPHEN 64611284789 No Longer Active Tu Landeros MD Active HYDROCODONE-ACETAMINOPHEN 5-500 MG TABS take one po Q 4-6 hours prn HYDROCODONE-ACETAMINOPHEN 64399903446 No Longer Active Tu Landeros MD Active BACTRIM DS 800-160 MG TABS 1 po BID x 7 days SULFAMETHOXAZOLE-TRIMETHOPRIM 89678953716 No Longer Active Tu Landeros MD Active VENLAFAXINE HCL 75 MG TABS 1 po BID VENLAFAXINE HCL 15425606115 No Longer Active Elvira Cervantes MD PhD Active TRAMADOL HCL 50 MG TABS 1 tablets every 6 hours as needed for pain TRAMADOL HCL 44103785605 No Longer Active Tu Landeros MD Active ACCU-CHEK FASTCLIX LANCETS MISC Use to check bloodsugar three times daily as needed LANCETS 58441437191 No Longer Active Tu Landeros MD Active ACCU-CHEK KEYONA PLUS STRP Use for testing bloodsugars three times daily as needed GLUCOSE BLOOD 92277005535 No Longer Active Tu Landeros MD Active ACCU-CHEK KEYONA PLUS W/DEVICE KIT Use for testing bloodsugars three times daily as needed BLOOD GLUCOSE MONITORING SUPPL 10627744402 No Longer Active Tu Landeros MD Active SPIRONOLACTONE 25 MG TAB 0.5 tablet by mouth daily SPIRONOLACTONE 90836176351 No Longer Active Tu Landeros MD Active ALPRAZOLAM 0.5 MG TABS 1 tab every 6hrs as needed ALPRAZOLAM 97670808634 No Longer Active Tu Landeros MD Active AUGMENTIN 875-125 MG TAB 1 tab by mouth twice daily with food AMOXICILLIN-POT CLAVULANATE 12229266715 No Longer Active Tu Landeros MD Active PREDNISONE 20 MG TAB 2 tabs daily for 3 days, 1 tab daily for 3 days, 1/2 tab daily for 2 days PREDNISONE 91438141768 No Longer Active Tu Landeros MD Active XANAX 0.5 MG TABS 1 tablet every 6 hrs prn ALPRAZOLAM 51593739019 No Longer Active Tu Landeros MD Active PREDNISONE 20 MG TAB 2 tabs daily for 3 days, 1 tab daily for 3 days, 1/2 tab daily for 2 days PREDNISONE 57707490878 No Longer Active Tu Lnaderos MD Active TRIAMCINOLONE ACETONIDE 0.1 % OINT Apply to affected areas TID for up to 2 weeks TRIAMCINOLONE ACETONIDE 02769185757 No Longer Active Tu Landeros MD Active LORTAB 5 5-500 MG TABS 1/2 to 1 tablet by mouth every 4 hours as needed for pain HYDROCODONE-ACETAMINOPHEN 31589422224 No Longer Active Tu Landeros MD Active MULTIVITAMINS TABS Take one by mouth daily MULTIPLE VITAMIN 99063680808 No Longer Active Tu Landeros MD Active MELATONIN 5 MG TABS Take one by mouth daily MELATONIN 11251683363 No Longer Active Tu Landeros MD Active SOMA 350 MG TAB 1 po q 6 hours prn spasm CARISOPRODOL 09741435417 No Longer Active Tu Landeros MD Active MECLIZINE HCL 25 MG CHEW TAB 1 four times a day as needed for dizziness 08/05 MECLIZINE HCL 92794068893 No Longer Active Fab Morales DO Active ANGEL BREEZE 2 TEST DISK test tid prn GLUCOSE BLOOD 37664906710 No Longer Active Negra Scott RN Active REGLAN 10 MG TAB 1 po TID PRN [place] METOCLOPRAMIDE HCL 52391648157 No Longer Active Tu Landeros MD Active METFORMIN HCL 500 MG TABS 1 PO BID METFORMIN HCL 76148120588 No Longer Active Tu Landeros MD Active AMBIEN 10 MG TAB 1 tab by mouth at bedtime as needed for sleep ZOLPIDEM TARTRATE 66275690813 No Longer Active Tu Landeros MD Active FLUOXETINE HCL 40 MG CAPS 1 po q day FLUOXETINE HCL 21556761636 No Longer Active Mayra Terry Active TRILIPIX 135 MG CPDR 1 po qd CHOLINE FENOFIBRATE 74973380199 No Longer Active Tu Landeros MD Active AMBIEN 10 MG TAB 1 tab by mouth at bedtime as needed for sleep AMBIEN 10 MG TAB 151375 ZOLPIDEM TARTRATE Inactive METFORMIN HCL 500 MG TABS 1 PO BID METFORMIN HCL 500 MG TABS 062138 METFORMIN HCL Inactive REGLAN 10 MG TAB 1 po TID PRN Nausea REGLAN 10 MG TAB 080559 METOCLOPRAMIDE HCL Inactive MECLIZINE HCL 25 MG CHEW TAB 1 four times a day as needed for dizziness 08/05 MECLIZINE HCL 25 MG CHEW TAB 177870 MECLIZINE HCL Inactive SOMA 350 MG TAB 1 po q 6 hours prn spasm SOMA 350 MG TAB 166282 CARISOPRODOL Inactive MELATONIN 5 MG TABS Take one by mouth daily MELATONIN 5 MG TABS 167620 MELATONIN Inactive MULTIVITAMINS TABS Take one by mouth daily MULTIVITAMINS TABS MULTIPLE VITAMIN Inactive LORTAB 5 5-500 MG TABS 1/2 to 1 tablet by mouth every 4 hours as needed for pain LORTAB 5 5-500 MG TABS HYDROCODONE- ACETAMINOPHEN Inactive XANAX 0.5 MG TABS 1 tablet every 6 hrs prn XANAX 0.5 MG TABS 617608 ALPRAZOLAM Inactive AUGMENTIN 875-125 MG TAB 1 tab by mouth twice daily with food AUGMENTIN 875-125 MG TAB 242613 AMOXICILLIN-POT CLAVULANATE Inactive ALPRAZOLAM 0.5 MG TABS 1 tab every 6hrs as needed ALPRAZOLAM 0.5 MG TABS 670612 ALPRAZOLAM Inactive SPIRONOLACTONE 25 MG TAB 0.5 tablet by mouth daily SPIRONOLACTONE 25 MG TAB 505673 SPIRONOLACTONE Inactive ACCU-CHEK KEYONA PLUS W/DEVICE KIT Use for testing bloodsugars three times daily as needed ACCU-CHEK KEYONA PLUS W/DEVICE KIT BLOOD GLUCOSE MONITORING SUPPL Inactive ACCU-CHEK KEYONA PLUS STRP Use for testing bloodsugars three times daily as needed ACCU-CHEK KEYONA PLUS STRP GLUCOSE BLOOD Inactive ACCU-CHEK FASTCLIX LANCETS MISC Use to check bloodsugar three times daily as needed ACCU-CHEK FASTCLIX LANCETS MISC 70485017480 LANCETS Inactive TRAMADOL HCL 50 MG TABS 1 tablets every 6 hours as needed for pain TRAMADOL HCL 50 MG TABS 160584 TRAMADOL HCL Inactive VENLAFAXINE HCL 75 MG TABS 1 po BID VENLAFAXINE HCL 75 MG TABS 468142 VENLAFAXINE HCL Inactive HYDROCODONE-ACETAMINOPHEN 5-500 MG TABS take one po Q 4-6 hours prn HYDROCODONE-ACETAMINOPHEN 5-500 MG TABS HYDROCODONE- ACETAMINOPHEN Inactive LORTAB 5 5-500 MG TABS 1/2 to 1 tablet by mouth every 4 hours as needed for pain LORTAB 5 5-500 MG TABS HYDROCODONE- ACETAMINOPHEN Inactive LAMISIL 250 MG TAB 1 po qd LAMISIL 250 MG TAB 950154 TERBINAFINE HCL Inactive VENLAFAXINE HCL 37.5 MG TABS 1 po BID VENLAFAXINE HCL 37.5 MG TABS 415002 VENLAFAXINE HCL Inactive CIPRO 500 MG TAB 1 tablet by mouth twice daily CIPRO 500 MG TAB 813595 CIPROFLOXACIN HCL Inactive VENLAFAXINE HCL 75 MG TABS 1 po BID VENLAFAXINE HCL 75 MG TABS 728033 VENLAFAXINE HCL Inactive SIMVASTATIN 40 MG TABS Take one by mouth daily SIMVASTATIN 40 MG TABS 023512 SIMVASTATIN Inactive OMEPRAZOLE 20 MG TBEC 1 PO 30 MIN BEFORE 1ST MEAL OMEPRAZOLE 20 MG TBEC 910670 OMEPRAZOLE Inactive FENOFIBRATE 145 MG TABS 1 po qd FENOFIBRATE 145 MG TABS 316413 FENOFIBRATE Inactive BACTRIM DS 800-160 MG TABS 1 bid x 14 day start 09-28-13 BACTRIM DS 800-160 MG TABS 933681 SULFAMETHOXAZOLE-TRIMETHOPRIM Inactive B-12 100 MCG TABS Take one by mouth daily B-12 100 MCG TABS CYANOCOBALAMIN Inactive GABAPENTIN 100 MG CAPS 1 po bid GABAPENTIN 100 MG CAPS 012290 GABAPENTIN Inactive HYDROCODONE-ACETAMINOPHEN 5-325 MG TABS 1 tab by mouth every 6 hours as needed for pain HYDROCODONE-ACETAMINOPHEN 5-325 MG TABS 166506 HYDROCODONE-ACETAMINOPHEN Inactive CIPRO 500 MG TABS 1 bid x 14 days start 09-28-13 CIPRO 500 MG TABS 887337 CIPROFLOXACIN HCL Inactive ALIGN 4 MG CAPS [...] day as needed DICLOFENAC SODIUM 50 MG [facility] 534688 DICLOFENAC SODIUM Inactive PREDNISONE 20 MG TAB 2 tablets once daily for 2 days, then 1 tablet once daily for 2 days PREDNISONE 20 MG TAB 955351 PREDNISONE Inactive TRUEDRAW LANCING DEVICE MISC Test [...] at bedtime prn REQUIP 2 MG TABS 344781 ROPINIROLE HCL Inactive SUPER B COMPLEX/VITAMIN C TABS 1 qd SUPER B COMPLEX/ VITAMIN C TABS 07448204709 B COMPLEX-C Inactive TRUEDRAW LANCING DEVICE MISC test blood sugar twice daily dx: 250.00 TRUEDRAW LANCING DEVICE MISC LANCET DEVICES Inactive TRUETEST TEST INVITR STRP test blood sugar twice daily. DX 250.0 TRUETEST TEST INVITR STRP GLUCOSE BLOOD Inactive TRIAMCINOLONE ACETONIDE 0.1 % OINT Apply to affected areas TID for up to 2 weeks TRIAMCINOLONE ACETONIDE 0.1 % OINT 7370730 TRIAMCINOLONE ACETONIDE Inactive PREDNISONE 20 MG TAB 2 tabs daily for 3 days, 1 tab daily for 3 days, 1/2 tab daily for 2 days PREDNISONE 20 MG TAB 285285 PREDNISONE Inactive PREDNISONE 20 MG TAB 2 tabs daily for 3 days, 1 tab daily for 3 days, 1/2 tab daily for 2 days PREDNISONE 20 MG TAB 334741 PREDNISONE Inactive BACTRIM DS 800-160 MG TABS 1 po BID x 7 days BACTRIM DS 800-160 MG TABS 023544 SULFAMETHOXAZOLE-TRIMETHOPRIM Inactive ZITHROMAX 250 MG TAB 2 po today, then 1 po q days 2-5 ZITHROMAX 250 MG TAB 1557536 AZITHROMYCIN Inactive Advance Directives Directive Description Start Date DISCUSSED WITH PATIENT -- NO DECISION MADE Immunizations Vaccine Administration Date Value Standard Description Seasonal influenza vaccine, injectable, containing preservative, for > 3 years old (Afluria, FluLaval, Fluzone, Fluvirin, Fluarix, Agriflu(>=18 yo)) Fluzone (>3 yrs.) [[id number]] Influenza, seasonal, injectable influenza immunization (Flu Vax) has been administered 02/22/2012 influenza virus vaccine, unspecified formulation Seasonal influenza vaccine, injectable, containing preservative, for > 3 years old (Afluria, FluLaval, Fluzone, Fluvirin, Fluarix, Agriflu(>=18 yo)) Fluzone (>3 yrs.) [[id number]] Influenza, seasonal, injectable Vital Signs Date Name [...] Magnesium - Chemistry sodium, serum 143 mmol/L 980-445 8568/01/10 carbon dioxide, venous blood 28.0 mmol/L 21.0-32.0 potassium, serum 4.5 mmol/L 3.5-5.2 chloride, serum 104 mmol/L 98-107 blood glucose 158 mg/dL 65-110 urea nitrogen, blood 23 mg/dL 7-18 creatinine, serum 1.06 mg/dL 0.55-1.30 alanine aminotransferase (SGPT), serum 42 U/L 12-78 aspartate aminotransferase (SGOT), serum 32 U/L 15-37 calcium, serum 9.3 mg/dL 8.5-10.1 bilirubin, serum, total 0.20 mg/dL 0.00-1.00 cholesterol, serum 177 mg/dL 649-740 2179/01/10 triglyceride, serum, fasting 320 mg/dL 30-200 HDL cholesterol, serum 46 mg/dL 32-96 LDL cholesterol, serum 67 mg/dL 0-130 Lab Report: HGBA1C - Chemistry hemoglobin A1C, blood, as % of total hemoglobin 7.1 % 4.3-6.0 hemoglobin A1C, blood, as % of total hemoglobin 7.4 % 4.3-6.0 sodium, serum 140 mmol/L 312-636 9653/09/07 potassium, serum 4.3 mmol/L 3.5-5.2 chloride, serum [...] <30 Encounters Code Encounter Date Provider Facility CPT-67570 Level 4 Est. Patient 09:08:17 SOFT WORK WRAPPER EXAMINER Tu Landeros MD [facility] CPT-50754 Level 4 Est. Patient 14:40:19 CDT Tu Landeros MD [facility] CPT-35685 Level 4 Est. Patient 14:06:04 SOFT WORK WRAPPER EXAMINER Tu Landeros MD [facility] CPT-98740 Level 3 Est. Patient 14:05:18 SOFT WORK WRAPPER EXAMINER Tu Landeros MD [facility] CPT-12209 Level 3 Est. Patient 10:06:54 SOFT WORK WRAPPER EXAMINER Miranda Suresh INSURANCE ADMINISTRATIVE ASSISTANT [facility] CPT-94903 Level 4 Est. Patient 13:50:18 SOFT WORK WRAPPER EXAMINER Tu Landeros MD [facility] CPT-37227 Level 3 Est. Patient 10:30:04 CDT Tu Landeros MD [facility] CPT-04421 Level 4 Est. Patient 11:03:38 CDT Tu Landeros MD [facility] CPT-94526 Level 3 Est. Patient 10:20:44 CDT Fab Morales DO [facility] CPT-63824 Level 4 Est. Patient 14:38:57 CDT Tu Landeros MD [facility] CPT-44418 Level 4 Est. Patient 14:27:39 SOFT WORK WRAPPER EXAMINER Tu Landeros MD [facility] CPT-74780 Level 4 Est. Patient 09:45:25 CDT Tu Landeros MD [facility] CPT-25977 Level 4 Est. Patient 09:05:20 SOFT WORK WRAPPER EXAMINER Tu Landeros MD [facility] CPT-21246 Level 4 Est. Patient 14:09:06 CDT Tu Landeros MD [facility] CPT-85555 Level 3 Est. Patient 13:36:54 CDT Tu Landeros MD [facility] CPT-67994 Level 3 Est. Patient 08:59:14 CDT Tu Landeros MD [facility] CPT-29807 Level 3 Est. Patient 13:48:35 CDT Fab Morales DO [facility] CPT-84050 Level 4 Est. Patient 10:05:48 CDT Tu Landeros MD [facility] CPT-69709 Level 3 Est. Patient 13:38:42 CDT Marek BANKS [facility] CPT-78610 Level 5 Est. Patient 08:08:39 CDT Jerrica FRANCIS [facility] CPT-36695 Level 4 Est. Patient 14:23:38 CDT Tu Landeros MD [facility] CPT-49107 Level 3 Est. Patient 11:44:04 CDT Tu Landeros MD [facility] CPT-22692 Level 3 Est. Patient 11:03:20 SOFT WORK WRAPPER EXAMINER Tu Landeros MD [facility] CPT-11100 Level 3 Est. Patient 11:03:14 SOFT WORK WRAPPER EXAMINER Tu Landeros MD [facility] CPT-22606 Level 3 Est. Patient 12:42:49 CDT Tu Landeros MD [facility] CPT-64141 Level 3 Est. Patient 11:52:06 CDT Tu Landeros MD [facility] CPT-64429 Level 3 Est. Patient 13:58:11 CDT Tu Landeros MD [facility] CPT-70787 Level 3 Est. Patient 17:50:07 CDT Fab Morales DO [facility] CPT-07166 Level 3 Est. Patient 12:06:29 CDT Elvira Cervantes MD [facility] CPT-09631 Level 3 Est. Patient 15:50:32 CDT Tu Landeros MD [facility] CPT-08977 Level 4 Est. Patient 16:08:29 CDT Tu Landeros MD [facility] CPT-39934 Level 3 Est. Patient 16:04:19 CDT Tu Landeros MD [facility] CPT-30318 Level 3 Est. Patient 11:22:30 SOFT WORK WRAPPER EXAMINER Tu Landeros MD [facility] CPT-40282 Level 4 Est. Patient 16:24:02 SOFT WORK WRAPPER EXAMINER Tu Landeros MD [facility] CPT-14286 Level 3 Est. Patient 17:21:23 SOFT WORK WRAPPER EXAMINER Tu Landeros MD [facility] Procedures Code Procedure Name Date Entry Date Standard Description CPT-74059 Magnesium - LAB USE ONLY 11:14:20 SOFT WORK WRAPPER EXAMINER CPT-73698 Lipid - LAB USE ONLY 11:14:20 SOFT WORK WRAPPER EXAMINER CPT-83579 HGBA1C - LAB USE ONLY 11:14:20 SOFT WORK WRAPPER EXAMINER CPT-02443 CMP - LAB USE ONLY 11:14:19 SOFT WORK WRAPPER EXAMINER CPT-37842 CBC - LAB USE ONLY 11:14:19 SOFT WORK WRAPPER EXAMINER CPT-12296 Venipuncture Draw Fee 11:14:18 SOFT WORK WRAPPER EXAMINER CPT-62881 First Vx - Ix admin for Medicare patients 16:46:52 CDT CPT-56347 Fluzone Preservative Free Intramuscular Suspension 16:46 :51 CDT CPT-37665 CBC - LAB USE ONLY 17:14:46 CDT CPT-05193 HGBA1C - LAB USE ONLY 17:14:46 CDT CPT-30943 Venipuncture Draw Fee 17:14:46 CDT CPT-G0438 Initial Annual Wellness Exam 14:13:04 CDT CPT-21733 Breathing Tx 10:06:54 SOFT WORK WRAPPER EXAMINER CPT-14667 Postop F/U Visit 10:02:45 CDT CPT-LR Lesion Removal 09:02:56 CDT CPT-JTINJ Asp/Joint Injection 15:51:27 SOFT WORK WRAPPER EXAMINER CPT-OV Office Visit 15:52:02 SOFT WORK WRAPPER EXAMINER CPT-OV Office Visit 15:45:11 CDT CPT-000 Give Zostavax 14:09:06 CDT CPT-28956 Administration single or combination vaccine inc oral 15 :19:04 CDT CPT-39012 Zoster Vaccine (Zostavax) 15:19:04 CDT CPT-72336 Administration single or combination vaccine inc oral 20 :51:03 CDT CPT-65449 Influenza split virus > age 3 20:51:03 CDT CPT-90434 No Charge Offi Visit 14:52:03 CDT CPT-OV Office Visit 14:57:43 CDT CPT-OV Office Visit 15:22:32 CDT CPT-06845 Administration single or combination vaccine inc oral 11 :33:15 CDT CPT-22898 Influenza split virus > age 3 11:33:15 CDT
--- OUTSIDE RECORDS SUMMARY | 2018-04-25 13:50 | XMS REPORT | Clinical Summary ---
Author Author Admin, SACHI Organization [employer] Address Unknown Phone Unavailable Allergies, Adverse [...] 100 MG CAPS 1 po TID GABAPENTIN 33931150242 Active Tu Landeros MD Active DICLOFENAC SODIUM 50 MG ORAL TBEC 1 po BID PRN Pain DICLOFENAC SODIUM 58520259927 No Longer Active Tu Landeros MD Active CYCLOBENZAPRINE HCL 10 MG ORAL TABS 1 po TID PRN Muscle Spasm CYCLOBENZAPRINE HCL 10123435866 No Longer Active Tu Landeros MD Active INVOKANA 100 MG ORAL TABS 1 po qd CANAGLIFLOZIN 09638548214 Active Tu Landeros MD Active GLIPIZIDE 5 MG ORAL TABS 1 po qd GLIPIZIDE 39106577089 No Longer Active Tu Landeros MD Active VENLAFAXINE HCL 75 MG ORAL TABS 1 po BID VENLAFAXINE HCL 46356505968 Active Tu Landeros MD Active GLIMEPIRIDE 1 MG ORAL TABS 1 po qd GLIMEPIRIDE 34774331052 No Longer Active Tu Landeros MD Active TRUE METRIX BLOOD GLUCOSE TEST INVITR STRP Test blood sugar BID Dx: E11.9 GLUCOSE BLOOD 89615292185 Active Tu Landeros MD Active TRUE METRIX AIR GLUCOSE METER W/DEVICE KIT Test blood glucose BID Dx: E11.9 BLOOD GLUCOSE MONITORING SUPPL 71383850241 Active Tu Landeros MD Active TRUETEST TEST INVITR STRP test blood sugar twice daily. DX 250.0 GLUCOSE BLOOD 75166460486 No Longer Active Mirna Stanley LPN Active TRUEDRAW LANCING DEVICE MISC test blood sugar twice daily dx: 250.00 LANCET DEVICES 93815485714 No Longer Active Mirna Stanley LPN Active ENALAPRIL MALEATE 20 MG TABS 2 po qd ENALAPRIL MALEATE 38951174590 Active Lesli Kellogg APRN Active SUPER B COMPLEX/VITAMIN C TABS 1 qd B COMPLEX-C 14932118812 No Longer Active Tu Landeros MD Active ASPIRIN EC 81 MG ORAL TBEC 1 po qd ASPIRIN 30366103374 Active Tu Landeros MD Active GLUCOSAMINE 500 MG TABS 2 po qd GLUCOSAMINE Active Tu Landeros MD Active SIMVASTATIN 40 MG TABS 0.5 po qHS SIMVASTATIN 11449997323 Active Tu Landeros MD Active FISH OIL 1000 MG CAPS 1 po qd OMEGA-3 FATTY ACIDS 79346861032 Active Tu Landeros MD Active METFORMIN HCL 1000 MG TABS 1 po BID METFORMIN HCL 30246615177 Active Tu Landeros MD Active KLOR-CON 10 10 MEQ CR-TABS 2 po qd POTASSIUM CHLORIDE 36537547806 Active Tu Landeros MD Active FUROSEMIDE 40 MG TAB 1 po qd FUROSEMIDE 68501195544 Active Tu Landeros MD Active REQUIP 2 MG ORAL TABS 1 po qHS PRN Restless legs ROPINIROLE HCL 44359743673 Active Tu Landeros MD Active REQUIP 2 MG TABS Take one tablet at bedtime prn ROPINIROLE HCL 87291561149 No Longer Active Tu Ladneros MD Active VENTOLIN HFA 108 (90 BASE) MCG/ACT AERS 1-2 puffs every 4 hours if needed for cough/congestion ALBUTEROL SULFATE 89112677733 No Longer Active Ambika Aden APRN Active ZITHROMAX 250 MG TAB 2 po today, then 1 po q days 2-5 AZITHROMYCIN 63858568142 No Longer Active Miranda Suresh APRN Active FLONASE 50 MCG/ACT SUSP 1 spray each nostril twice daily until bottle empty FLUTICASONE PROPIONATE 64444751172 No Longer Active Tu Landeros MD Active COLACE 100 MG CAP 1 po BID PRN Constipation DOCUSATE SODIUM 67569616860 Active Tu Landeros MD Active TRUERESULT BLOOD GLUCOSE W/DEVICE KIT test blood sugar twice daily dx 250.00 BLOOD GLUCOSE MONITORING SUPPL 27897708057 No Longer Active Tu Landeros MD Active TRUEDRAW LANCING DEVICE MISC Test twice a day dx 250.0 LANCET DEVICES 09030709290 No Longer Active Tu Landeros MD Active PREDNISONE 20 MG TAB 2 tablets once daily for 2 days, then 1 tablet once daily for 2 days PREDNISONE 92595389107 No Longer Active Tu Landeros MD Active DICLOFENAC SODIUM 50 MG TBEC 1 tablet by mouth three times a day as needed DICLOFENAC SODIUM 67442721968 No Longer Active Fab Morales DO Active EMBRACE BLOOD GLUCOSE TEST STRP test blood sugar twice daily DX 250.0 2014 GLUCOSE BLOOD 33984647953 No Longer Active Tu Landeros MD Active TRUETEST TEST STRP test blood sugar three times daily dx: 250.00 GLUCOSE BLOOD 54666572878 No Longer Active Suze Corey RMA Active TRUERESULT BLOOD GLUCOSE W/DEVICE KIT use to test blood sugar tid dx: 250.00 BLOOD GLUCOSE MONITORING SUPPL 25857182202 No Longer Active Suze Corey RMA Active ALIGN 4 MG CAPS 1 tid PROBIOTIC PRODUCT 08370833770 No Longer Active Shaun Sy MD Active CIPRO 500 MG TABS 1 bid x 14 days start 09-28-13 CIPROFLOXACIN HCL 35606767093 No Longer Active Shaun Sy MD Active TRAMADOL HCL 50 MG TABS 1-2 tablets every 6 hours as needed for pain TRAMADOL HCL 15069324262 Active Tu Landeros MD Active HYDROCODONE-ACETAMINOPHEN 5-325 MG TABS 1 tab by mouth every 6 hours as needed for pain HYDROCODONE-ACETAMINOPHEN 89439525299 No Longer Active Tu Landeros MD Active OMEPRAZOLE 20 MG CPDR 1 po q a.m. OMEPRAZOLE 39502812331 Active Fab Morales DO Active GABAPENTIN 100 MG CAPS 1 po bid GABAPENTIN 84245524827 No Longer Active Tu Landeros MD Active B-12 100 MCG TABS Take one by mouth daily CYANOCOBALAMIN 75804849664 No Longer Active Tu Landeros MD Active BACTRIM DS 800-160 MG TABS 1 bid x 14 day start 09-28-13 SULFAMETHOXAZOLE-TRIMETHOPRIM 27180899377 No Longer Active Tu Landeros MD Active CARVEDILOL 12.5 MG TABS 1 po BID CARVEDILOL 56613865110 Active Lesli Kellogg APRN Active TRILIPIX 135 MG CPDR 1 q hs CHOLINE FENOFIBRATE 87127469701 Active Tu Landeros MD Active FENOFIBRATE 145 MG TABS 1 po qd FENOFIBRATE 95710504055 No Longer Active JASPREET Perez Active OMEPRAZOLE 20 MG TBEC 1 PO 30 MIN BEFORE 1ST MEAL OMEPRAZOLE 09455777992 No Longer Active JASPREET Perez Active SIMVASTATIN 40 MG TABS Take one by mouth daily SIMVASTATIN 48971749073 No Longer Active JASPREET Perez Active VENLAFAXINE HCL 75 MG TABS 1 po BID VENLAFAXINE HCL 21691274204 No Longer Active JASPREET Perez Active CIPRO 500 MG TAB 1 tablet by mouth twice daily CIPROFLOXACIN HCL 34749212388 No Longer Active Tu Landeros MD Active VENLAFAXINE HCL 37.5 MG TABS 1 po BID VENLAFAXINE HCL 04415791225 No Longer Active Suzecandido Nicole RMA Active LAMISIL 250 MG TAB 1 po qd TERBINAFINE HCL 65611559337 No Longer Active Tu Landeros MD Active LORTAB 5 5-500 MG TABS 1/2 to 1 tablet by mouth every 4 hours as needed for pain HYDROCODONE-ACETAMINOPHEN 30459308087 No Longer Active Tu Landeros MD Active HYDROCODONE-ACETAMINOPHEN 5-500 MG TABS take one po Q 4-6 hours prn HYDROCODONE-ACETAMINOPHEN 72754394576 No Longer Active Tu Landeros MD Active BACTRIM DS 800-160 MG TABS 1 po BID x 7 days SULFAMETHOXAZOLE-TRIMETHOPRIM 25689768446 No Longer Active Tu Landeros MD Active VENLAFAXINE HCL 75 MG TABS 1 po BID VENLAFAXINE HCL 09745080226 No Longer Active Elvira Cervantes MD PhD Active TRAMADOL HCL 50 MG TABS 1 tablets every 6 hours as needed for pain TRAMADOL HCL 75856893635 No Longer Active Tu Landeros MD Active ACCU-CHEK FASTCLIX LANCETS MISC Use to check bloodsugar three times daily as needed LANCETS 67690207227 No Longer Active Tu Landeros MD Active ACCU-CHEK KEYONA PLUS STRP Use for testing bloodsugars three times daily as needed GLUCOSE BLOOD 87515826696 No Longer Active Tu Landeros MD Active ACCU-CHEK KEYONA PLUS W/DEVICE KIT Use for testing bloodsugars three times daily as needed BLOOD GLUCOSE MONITORING SUPPL 31607058786 No Longer Active Tu Landeros MD Active SPIRONOLACTONE 25 MG TAB 0.5 tablet by mouth daily SPIRONOLACTONE 35478930859 No Longer Active Tu Landeros MD Active ALPRAZOLAM 0.5 MG TABS 1 tab every 6hrs as needed ALPRAZOLAM 33297030269 No Longer Active Tu Landeros MD Active AUGMENTIN 875-125 MG TAB 1 tab by mouth twice daily with food AMOXICILLIN-POT CLAVULANATE 05995220040 No Longer Active Tu Landeros MD Active PREDNISONE 20 MG TAB 2 tabs daily for 3 days, 1 tab daily for 3 days, 1/2 tab daily for 2 days PREDNISONE 85796661234 No Longer Active Tu Landeros MD Active XANAX 0.5 MG TABS 1 tablet every 6 hrs prn ALPRAZOLAM 16709965895 No Longer Active Tu Landeros MD Active PREDNISONE 20 MG TAB 2 tabs daily for 3 days, 1 tab daily for 3 days, 1/2 tab daily for 2 days PREDNISONE 72472228671 No Longer Active Tu Landeros MD Active TRIAMCINOLONE ACETONIDE 0.1 % OINT Apply to affected areas TID for up to 2 weeks TRIAMCINOLONE ACETONIDE 63778192700 No Longer Active Tu Landeros MD Active LORTAB 5 5-500 MG TABS 1/2 to 1 tablet by mouth every 4 hours as needed for pain HYDROCODONE-ACETAMINOPHEN 20844085720 No Longer Active Tu Landeros MD Active MULTIVITAMINS TABS Take one by mouth daily MULTIPLE VITAMIN 17582394620 No Longer Active Tu Landeros MD Active MELATONIN 5 MG TABS Take one by mouth daily MELATONIN 97088332794 No Longer Active Tu Landeros MD Active SOMA 350 MG TAB 1 po q 6 hours prn spasm CARISOPRODOL 74505633326 No Longer Active Tu Landeros MD Active MECLIZINE HCL 25 MG CHEW TAB 1 four times a day as needed for dizziness 08/05 MECLIZINE HCL 35635521498 No Longer Active Fab Morales DO Active ANGEL BREEZE 2 TEST DISK test tid prn GLUCOSE BLOOD 00680166623 No Longer Active Negra Scott RN Active REGLAN 10 MG TAB 1 po TID PRN Nausea METOCLOPRAMIDE HCL 02154809350 No Longer Active Tu Landeros MD Active METFORMIN HCL 500 MG TABS 1 PO BID METFORMIN HCL 63225942671 No Longer Active Tu Landeros MD Active AMBIEN 10 MG TAB 1 tab by mouth at bedtime as needed for sleep ZOLPIDEM TARTRATE 11348362702 No Longer Active Tu Landeros MD Active FLUOXETINE HCL 40 MG CAPS 1 po q day FLUOXETINE HCL 43258786214 No Longer Active Mayra Jasper Active TRILIPIX 135 MG CPDR 1 po qd CHOLINE FENOFIBRATE 78968343670 No Longer Active Tu Landeros MD Active AMBIEN 10 MG TAB 1 tab by mouth at bedtime as needed for sleep AMBIEN 10 MG TAB 712700 ZOLPIDEM TARTRATE Inactive METFORMIN HCL 500 MG TABS 1 PO BID METFORMIN HCL 500 MG TABS 341212 METFORMIN HCL Inactive REGLAN 10 MG TAB 1 po TID PRN Nausea REGLAN 10 MG TAB 060716 METOCLOPRAMIDE HCL Inactive MECLIZINE HCL 25 MG CHEW TAB 1 four times a day as needed for dizziness 08/05 MECLIZINE HCL 25 MG CHEW TAB 739579 MECLIZINE HCL Inactive SOMA 350 MG TAB 1 po q 6 hours prn spasm SOMA 350 MG TAB 660661 CARISOPRODOL Inactive MELATONIN 5 MG TABS Take one by mouth daily MELATONIN 5 MG TABS 638691 MELATONIN Inactive MULTIVITAMINS TABS Take one by mouth daily MULTIVITAMINS TABS MULTIPLE VITAMIN Inactive LORTAB 5 5-500 MG TABS 1/2 to 1 tablet by mouth every 4 hours as needed for pain LORTAB 5 5-500 MG TABS 396238 HYDROCODONE- ACETAMINOPHEN Inactive XANAX 0.5 MG TABS 1 tablet every 6 hrs prn XANAX 0.5 MG TABS 979963 ALPRAZOLAM Inactive AUGMENTIN 875-125 MG TAB 1 tab by mouth twice daily with food AUGMENTIN 875-125 MG TAB 370521 AMOXICILLIN-POT CLAVULANATE Inactive ALPRAZOLAM 0.5 MG TABS 1 tab every 6hrs as needed ALPRAZOLAM 0.5 MG TABS 491203 ALPRAZOLAM Inactive SPIRONOLACTONE 25 MG TAB 0.5 tablet by mouth daily SPIRONOLACTONE 25 MG TAB 415938 SPIRONOLACTONE Inactive ACCU-CHEK KEYONA PLUS W/DEVICE KIT Use for testing bloodsugars three times daily as needed ACCU-CHEK KEYONA PLUS W/DEVICE KIT BLOOD GLUCOSE MONITORING SUPPL Inactive ACCU-CHEK KEYONA PLUS STRP Use for testing bloodsugars three times daily as needed ACCU-CHEK KEYONA PLUS STRP GLUCOSE BLOOD Inactive ACCU-CHEK FASTCLIX LANCETS MISC Use to check bloodsugar three times daily as needed ACCU-CHEK FASTCLIX LANCETS MISC 65312381878 LANCETS Inactive TRAMADOL HCL 50 MG TABS 1 tablets every 6 hours as needed for pain TRAMADOL HCL 50 MG TABS 193117 TRAMADOL HCL Inactive VENLAFAXINE HCL 75 MG TABS 1 po BID VENLAFAXINE HCL 75 MG TABS 300253 VENLAFAXINE HCL Inactive HYDROCODONE-ACETAMINOPHEN 5-500 MG TABS take one po Q 4-6 hours prn HYDROCODONE-ACETAMINOPHEN 5-500 MG TABS 017839 HYDROCODONE- ACETAMINOPHEN Inactive LORTAB 5 5-500 MG TABS 1/2 to 1 tablet by mouth every 4 hours as needed for pain LORTAB 5 5-500 MG TABS 519492 HYDROCODONE- ACETAMINOPHEN Inactive LAMISIL 250 MG TAB 1 po qd LAMISIL 250 MG TAB 703446 TERBINAFINE HCL Inactive VENLAFAXINE HCL 37.5 MG TABS 1 po BID VENLAFAXINE HCL 37.5 MG TABS 166200 VENLAFAXINE HCL Inactive CIPRO 500 MG TAB 1 tablet by mouth twice daily CIPRO 500 MG TAB 755615 CIPROFLOXACIN HCL Inactive VENLAFAXINE HCL 75 MG TABS 1 po BID VENLAFAXINE HCL 75 MG TABS 084410 VENLAFAXINE HCL Inactive SIMVASTATIN 40 MG TABS Take one by mouth daily SIMVASTATIN 40 MG TABS 880071 SIMVASTATIN Inactive OMEPRAZOLE 20 MG TBEC 1 PO 30 MIN BEFORE 1ST MEAL OMEPRAZOLE 20 MG TBEC 054776 OMEPRAZOLE Inactive FENOFIBRATE 145 MG TABS 1 po qd FENOFIBRATE 145 MG TABS 780845 FENOFIBRATE Inactive BACTRIM DS 800-160 MG TABS 1 bid x 14 day start 09-28-13 BACTRIM DS 800-160 MG TABS 735081 SULFAMETHOXAZOLE-TRIMETHOPRIM Inactive B-12 100 MCG TABS Take one by mouth daily B-12 100 MCG TABS CYANOCOBALAMIN Inactive GABAPENTIN 100 MG CAPS 1 po bid GABAPENTIN 100 MG CAPS 874573 GABAPENTIN Inactive HYDROCODONE-ACETAMINOPHEN 5-325 MG TABS 1 tab by mouth every 6 hours as needed for pain HYDROCODONE-ACETAMINOPHEN 5-325 MG TABS 003503 HYDROCODONE-ACETAMINOPHEN Inactive CIPRO 500 MG TABS 1 bid x 14 days start 09-28-13 CIPRO 500 MG TABS 138334 CIPROFLOXACIN HCL Inactive ALIGN 4 MG CAPS [...] as needed DICLOFENAC SODIUM 50 MG TBEC 075189 DICLOFENAC SODIUM Inactive PREDNISONE 20 MG TAB 2 tablets once daily for 2 days, then 1 tablet once daily for 2 days PREDNISONE 20 MG TAB 171828 PREDNISONE Inactive TRUEDRAW LANCING DEVICE MISC Test twice a day dx 250.0 TRUEDRAW LANCING DEVICE MISC LANCET DEVICES Inactive TRUERESULT BLOOD GLUCOSE W/DEVICE KIT test blood sugar twice daily dx 250.00 TRUERESULT BLOOD GLUCOSE W/DEVICE KIT BLOOD GLUCOSE MONITORING SUPPL Inactive FLONASE 50 MCG/ACT SUSP 1 spray each nostril twice daily until bottle empty FLONASE 50 MCG/ACT SUSP 5794679 FLUTICASONE PROPIONATE Inactive VENTOLIN HFA 108 (90 BASE) MCG/ACT AERS 1-2 puffs every 4 hours if needed for cough/congestion VENTOLIN HFA 108 (90 BASE) MCG/ACT AERS ALBUTEROL SULFATE Inactive REQUIP 2 MG TABS Take one tablet at bedtime prn REQUIP 2 MG TABS 273682 ROPINIROLE HCL Inactive SUPER B COMPLEX/VITAMIN C TABS 1 qd SUPER B COMPLEX/ VITAMIN C TABS 42868574807 B COMPLEX-C Inactive TRUEDRAW LANCING DEVICE MISC test blood sugar twice daily dx: 250.00 TRUEDRAW LANCING DEVICE MISC LANCET DEVICES Inactive TRUETEST TEST INVITR STRP test blood sugar twice daily. DX 250.0 TRUETEST TEST INVITR STRP GLUCOSE BLOOD Inactive CYCLOBENZAPRINE HCL 10 MG ORAL TABS 1 po TID PRN Muscle Spasm CYCLOBENZAPRINE HCL 10 MG ORAL TABS 701500 CYCLOBENZAPRINE HCL Inactive DICLOFENAC SODIUM 50 MG ORAL TBEC 1 po BID PRN Pain DICLOFENAC SODIUM 50 MG ORAL TBEC 552799 DICLOFENAC SODIUM Inactive TRIAMCINOLONE ACETONIDE 0.1 % OINT Apply to affected areas TID for up to 2 weeks TRIAMCINOLONE ACETONIDE 0.1 % OINT 1225930 TRIAMCINOLONE ACETONIDE Inactive PREDNISONE 20 MG TAB 2 tabs daily for 3 days, 1 tab daily for 3 days, 1/2 tab daily for 2 days PREDNISONE 20 MG TAB 685516 PREDNISONE Inactive PREDNISONE 20 MG TAB 2 tabs daily for 3 days, 1 tab daily for 3 days, 1/2 tab daily for 2 days PREDNISONE 20 MG TAB 617708 PREDNISONE Inactive BACTRIM DS 800-160 MG TABS 1 po BID x 7 days BACTRIM DS 800-160 MG TABS 156155 SULFAMETHOXAZOLE-TRIMETHOPRIM Inactive ZITHROMAX 250 MG TAB 2 po today, then 1 po q days 2-5 ZITHROMAX 250 MG TAB 897082 AZITHROMYCIN Inactive Advance Directives Directive Description Start Date DISCUSSED WITH PATIENT -- NO DECISION MADE Immunizations Vaccine Administration Date Value Standard Description Seasonal influenza vaccine, injectable, containing preservative, for > 3 years old (Afluria, FluLaval, Fluzone, Fluvirin, Fluarix, Agriflu(>=18 yo)) Fluzone (>3 yrs.) [[id number]] Influenza, seasonal, injectable influenza immunization (Flu Vax) has been administered 02/22/2012 influenza virus vaccine, unspecified formulation Seasonal influenza vaccine, injectable, containing preservative, for > 3 years old (Afluria, FluLaval, Fluzone, Fluvirin, Fluarix, Agriflu(>=18 yo)) Fluzone (>3 yrs.) [[id number]] Influenza, seasonal, injectable Vital Signs Date Name [...] Magnesium - Chemistry sodium, serum 143 mmol/L 341-816 2783/01/10 carbon dioxide, venous blood 28.0 mmol/L 21.0-32.0 potassium, serum 4.5 mmol/L 3.5-5.2 chloride, serum 104 mmol/L 98-107 blood glucose 158 mg/dL 65-110 urea nitrogen, blood 23 mg/dL 7-18 creatinine, serum 1.06 mg/dL 0.55-1.30 alanine aminotransferase (SGPT), serum 42 U/L 12-78 aspartate aminotransferase (SGOT), serum 32 U/L 15-37 calcium, serum 9.3 mg/dL 8.5-10.1 bilirubin, serum, total 0.20 mg/dL 0.00-1.00 cholesterol, serum 177 mg/dL 778-043 5089/01/10 triglyceride, serum, fasting 320 mg/dL 30-200 HDL cholesterol, serum 46 mg/dL 32-96 LDL cholesterol, serum 67 mg/dL 0-130 Lab Report: COMPREHENSIVE METABOLIC PANEL, LIPID PANEL, HEMOGLOBIN A1c - Chemistry cholesterol, serum 135 mg/dL 544-754 9974/05/17 HDL cholesterol, serum 41 mg/dL > OR=46 [...] <30 Encounters Code Encounter Date Provider Facility CPT-03781 Level 4 Est. Patient 14:28:34 CDT Tu Landeros MD [facility] CPT-87648 Level 3 Est. Patient 13:33:09 CDT Tu Landeros MD [facility] CPT-17647 Level 4 Est. Patient 14:29:21 CDT Tu Landeros MD [facility] CPT-64923 Level 4 Est. Patient 09:08:17 [employer] Tu Landeros MD [facility] CPT-46251 Level 4 Est. Patient 14:40:19 CDT Tu Landeros MD [facility] CPT-74435 Level 4 Est. Patient 14:06:04 [employer] Tu Landeros MD [facility] CPT-73666 Level 3 Est. Patient 14:05:18 [employer] Tu Landeros MD [facility] CPT-21334 Level 3 Est. Patient 10:06:54 [employer] [facility] Level 4 Est. Patient 13:50:18 [employer] Tu Landeros MD [facility] CPT-06141 Level 3 Est. Patient 10:30:04 CDT Tu Landeros MD [facility] CPT-43435 Level 4 Est. Patient 11:03:38 CDT Tu Landeros MD [facility] CPT-35309 Level 3 Est. Patient 10:20:44 CDT Fab Morales DO [facility] CPT-07967 Level 4 Est. Patient 14:38:57 CDT Tu Landeros MD [facility] CPT-45869 Level 4 Est. Patient 14:27:39 [employer] Tu Landeros MD [facility] CPT-99092 Level 4 Est. Patient 09:45:25 CDT Tu Landeros MD [facility] CPT-25089 Level 4 Est. Patient 09:05:20 [employer] Tu Landeros MD [facility] CPT-14160 Level 4 Est. Patient 14:09:06 CDT Tu Landeros MD [facility] CPT-95564 Level 3 Est. Patient 13:36:54 CDT Tu Landeros MD [facility] CPT-65974 Level 3 Est. Patient 08:59:14 CDT Tu Landeros MD [facility] CPT-23276 Level 3 Est. Patient 13:48:35 CDT Fab Morales DO [facility] CPT-91454 Level 4 Est. Patient 10:05:48 CDT Tu Landeros MD [facility] CPT-78664 Level 3 Est. Patient 13:38:42 CDT Marek BANKS [facility] CPT-22341 Level 5 Est. Patient 08:08:39 CDT Jerrica FRANCIS [facility] CPT-97068 Level 4 Est. Patient 14:23:38 CDT Tu Landeros MD [facility] CPT-04321 Level 3 Est. Patient 11:44:04 CDT Tu Landeros MD [facility] CPT-59119 Level 3 Est. Patient 11:03:20 [employer] Tu Landeros MD [facility] CPT-32139 Level 3 Est. Patient 11:03:14 [employer] Tu Landeros MD [facility] CPT-25520 Level 3 Est. Patient 12:42:49 CDT Tu Landeros MD [facility] CPT-87110 Level 3 Est. Patient 11:52:06 CDT Tu Landeros MD [facility] CPT-29535 Level 3 Est. Patient 13:58:11 CDT Tu Landeros MD [facility] CPT-35215 Level 3 Est. Patient 17:50:07 CDT Fab Morales DO [facility] CPT-16402 Level 3 Est. Patient 12:06:29 CDT Elvira Cervantes MD [facility] CPT-48927 Level 3 Est. Patient 15:50:32 CDT Tu Landeros MD [facility] CPT-67559 Level 4 Est. Patient 16:08:29 CDT Tu Landeros MD [facility] CPT-30501 Level 3 Est. Patient 16:04:19 CDT Tu Landeros MD [facility] CPT-55328 Level 3 Est. Patient 11:22:30 [employer] Tu Landeros MD [facility] CPT-59120 Level 4 Est. Patient 16:24:02 [employer] Tu Landeros MD [facility] CPT-60321 Level 3 Est. Patient 17:21:23 [employer] Tu Landeros MD [facility] Procedures Code Procedure Name Date Entry Date Standard Description CPT-21512 Shoulder, right, comp min 2V - XRAY USE ONLY 13:50:22 CDT CPT-G0009 Administration of Pneumococcal Vaccine 15:08:26 CDT CPT-47816 Prevnar 13 Intramuscular Suspension 15:08:26 CDT 10/08 CPT-G0439 [facility] Annual Wellness Exam 14:29:22 CDT CPT-88986 Venipuncture Draw Fee 13:15:35 CDT CPT-64285 Magnesium - LAB USE ONLY 11:14:20 [employer] CPT-55423 Lipid - LAB USE ONLY 11:14:20 [employer] CPT-03625 HGBA1C - LAB USE ONLY 11:14:20 [employer] CPT-90781 CMP - LAB USE ONLY 11:14:19 [employer] CPT-39356 CBC - LAB USE ONLY 11:14:19 [employer] CPT-89672 Venipuncture Draw Fee 11:14:18 [employer] CPT-90108 First Vx - Ix admin for Medicare patients 16:46:52 CDT CPT-40213 Fluzone Preservative Free Intramuscular Suspension 16:46 :51 CDT CPT-58390 CBC - LAB USE ONLY 17:14:46 CDT CPT-80922 HGBA1C - LAB USE ONLY 17:14:46 CDT CPT-23226 Venipuncture Draw Fee 17:14:46 CDT CPT-G0438 Initial Annual Wellness Exam 14:13:04 CDT CPT-63098 Breathing Tx 10:06:54 [employer] CPT-31490 Postop F/U Visit 10:02:45 CDT CPT-LR Lesion Removal 09:02:56 CDT CPT-JTINJ Asp/Joint Injection 15:51:27 [employer] CPT-OV Office Visit 15:52:02 [employer] CPT-OV Office Visit 15:45:11 CDT CPT-000 Give Zostavax 14:09:06 CDT CPT-12951 Administration single or combination vaccine inc oral 15 :19:04 CDT CPT-57306 Zoster Vaccine (Zostavax) 15:19:04 CDT CPT-01535 Administration single or combination vaccine inc oral 20 :51:03 CDT CPT-72640 Influenza split virus > age 3 20:51:03 CDT CPT-30587 No Charge Offi Visit 14:52:03 CDT CPT-OV Office Visit 14:57:43 CDT CPT-OV Office Visit 15:22:32 CDT CPT-91061 Administration single or combination vaccine inc oral 11 :33:15 CDT CPT-38097 Influenza split virus > age 3 11:33:15 CDT
--- OUTSIDE RECORDS SUMMARY | 2018-04-25 13:51 | XMS REPORT | Clinical Summary ---
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 Moderate or severe vision impairment, both eyes, [...] Landeros MD Ear pain, bilateral ICD-388.70 Inactive uT Landeros MD Hot flashes ICD-627.2 Inactive Tu Landeros MD Sebaceous cyst ICD-706.2 Inactive Tu Landeros MD Medication List Medication Instructions Start Date Stop Date Generic Name NDC Status Provider Patient Instruction VENTOLIN HFA 108 (90 BASE) MCG/ACT AERS 1-2 puffs every 4 hours if needed for cough/congestion ALBUTEROL SULFATE [id number] No Longer Active Ambika Aden APRN Active ZITHROMAX 250 MG TAB 2 po today, then 1 po q days 2-5 AZITHROMYCIN 59837162385 No Longer Active Miranda Suresh APRN Active METFORMIN HCL 1000 MG TABS 1 tablet by mouth twice daily METFORMIN HCL 34262016666 Active Tu Landeros MD Active FLONASE 50 MCG/ACT SUSP 1 spray each nostril twice daily until bottle empty FLUTICASONE PROPIONATE 92902838664 No Longer Active Tu Landeros MD Active COLACE 100 MG CAP 1 po BID PRN Constipation DOCUSATE SODIUM 69899431970 Active Tu Landeros MD Active SIMVASTATIN 40 MG TABS 0.5 tab daily at bedtime SIMVASTATIN 52375135018 Active Tu Landeros MD Active TRUERESULT BLOOD GLUCOSE W/DEVICE KIT test blood sugar twice daily dx 250.00 BLOOD GLUCOSE MONITORING SUPPL 14309936125 No Longer Active Tu Landeros MD Active TRUEDRAW LANCING DEVICE MISC Test twice a day dx 250.0 LANCET DEVICES 68032665522 No Longer Active Tu Landeros MD Active PREDNISONE 20 MG TAB 2 tablets once daily for 2 days, then 1 tablet once daily for 2 days PREDNISONE 83494340099 No Longer Active Tu Landeros MD Active DICLOFENAC SODIUM 50 MG TBEC 1 tablet by mouth three times a day as needed DICLOFENAC SODIUM 03778459615 No Longer Active Fab Morales DO Active TRUEDRAW LANCING DEVICE MISC test blood sugar twice daily dx: 250.00 LANCET DEVICES 62929843085 Active Tu Landeros MD Active TRUETEST TEST INVITR STRP test blood sugar twice daily. DX 250.0 GLUCOSE BLOOD 48602723696 Active Tu Landeros MD Active EMBRACE BLOOD GLUCOSE TEST STRP test blood sugar twice daily DX 250.0 2014 GLUCOSE BLOOD 82619959688 No Longer Active Tu Landeros MD Active TRUETEST TEST STRP test blood sugar three times daily dx: 250.00 GLUCOSE BLOOD 44098690111 No Longer Active Suzebianca VOGEL Active TRUERESULT BLOOD GLUCOSE W/DEVICE KIT use to test blood sugar tid dx: 250.00 BLOOD GLUCOSE MONITORING SUPPL 66299337667 No Longer Active Suze Corey RMA Active ALIGN 4 MG CAPS 1 tid PROBIOTIC PRODUCT 99027733523 No Longer Active Shaun Sy MD Active CIPRO 500 MG TABS 1 bid x 14 days start 09-28-13 CIPROFLOXACIN HCL 60640794438 No Longer Active Shaun Sy MD Active TRAMADOL HCL 50 MG TABS 1-2 tablets every 6 hours as needed for pain TRAMADOL HCL 86255066832 Active Tu Landeros MD Active HYDROCODONE-ACETAMINOPHEN 5-325 MG TABS 1 tab by mouth every 6 hours as needed for pain HYDROCODONE-ACETAMINOPHEN 44916807287 No Longer Active Tu Landeros MD Active OMEPRAZOLE 20 MG CPDR 1 po q a.m. OMEPRAZOLE 68053349742 Active Tu Landeros MD Active GABAPENTIN 100 MG CAPS 1 po bid GABAPENTIN 26815538527 No Longer Active Tu Landeros MD Active B-12 100 MCG TABS Take one by mouth daily CYANOCOBALAMIN 36551243176 No Longer Active Tu Landeros MD Active GABAPENTIN 100 MG CAPS by mouth twice a day GABAPENTIN 13356182554 Active Tiffanie Doyle Active BACTRIM DS 800-160 MG TABS 1 bid x 14 day start 8-14 SULFAMETHOXAZOLE-TRIMETHOPRIM 44163270012 No Longer Active Tu Landeros MD Active CARVEDILOL 12.5 MG TABS 1 po BID CARVEDILOL 30456705576 Active Tu Landeros MD Active SUPER B COMPLEX/VITAMIN C TABS 1 qd B COMPLEX-C 92034874120 Active JASPREET Perez Active TRILIPIX 135 MG CPDR 1 q hs CHOLINE FENOFIBRATE 18171368833 Active Tu Landeros MD Active FENOFIBRATE 145 MG TABS 1 po qd FENOFIBRATE 64248551841 No Longer Active JASPREET Perez Active OMEPRAZOLE 20 MG TBEC 1 PO 30 MIN BEFORE 1ST MEAL OMEPRAZOLE 03535588552 No Longer Active JASPREET Perez Active SIMVASTATIN 40 MG TABS Take one by mouth daily SIMVASTATIN 26037051942 No Longer Active JASPREET Perez Active VENLAFAXINE HCL 37.5 MG TABS 1 bid VENLAFAXINE HCL 58259489701 Active Tu Landeros MD Active VENLAFAXINE HCL 75 MG TABS 1 po BID VENLAFAXINE HCL 72156848428 No Longer Active JASPREET Perez Active CIPRO 500 MG TAB 1 tablet by mouth twice daily CIPROFLOXACIN HCL 73756333328 No Longer Active Tu Landeros MD Active VENLAFAXINE HCL 37.5 MG TABS 1 po BID VENLAFAXINE HCL 73092535356 No Longer Active Suze Corey RMA Active LAMISIL 250 MG TAB 1 po qd TERBINAFINE HCL 12659549218 No Longer Active Tu Landeros MD Active LORTAB 5 5-500 MG TABS 1/2 to 1 tablet by mouth every 4 hours as needed for pain HYDROCODONE-ACETAMINOPHEN 37232639231 No Longer Active Tu Landeros MD Active ENALAPRIL MALEATE 20 MG TABS 1.5 po qd ENALAPRIL MALEATE 50242372771 Active Tu Landeros MD Active HYDROCODONE-ACETAMINOPHEN 5-500 MG TABS take one po Q 4-6 hours prn HYDROCODONE-ACETAMINOPHEN 86848148429 No Longer Active Tu Landeros MD Active BACTRIM DS 800-160 MG TABS 1 po BID x 7 days SULFAMETHOXAZOLE-TRIMETHOPRIM 95386718609 No Longer Active Tu Landeros MD Active VENLAFAXINE HCL 75 MG TABS 1 po BID VENLAFAXINE HCL 68980895080 No Longer Active Elvira Cervantes MD PhD Active TRAMADOL HCL 50 MG TABS 1 tablets every 6 hours as needed for pain TRAMADOL HCL 72281918830 No Longer Active Tu Landeros MD Active ACCU-CHEK FASTCLIX LANCETS MISC Use to check bloodsugar three times daily as needed LANCETS 83383099097 No Longer Active Tu Landeros MD Active ACCU-CHEK KEYONA PLUS STRP Use for testing bloodsugars three times daily as needed GLUCOSE BLOOD 30092000065 No Longer Active Tu Landeros MD Active ACCU-CHEK KEYONA PLUS W/DEVICE KIT Use for testing bloodsugars three times daily as needed BLOOD GLUCOSE MONITORING SUPPL 10172522665 No Longer Active Tu Landeros MD Active SPIRONOLACTONE 25 MG TAB 0.5 tablet by mouth daily SPIRONOLACTONE 57131957113 No Longer Active Tu Landeros MD Active ALPRAZOLAM 0.5 MG TABS 1 tab every 6hrs as needed ALPRAZOLAM 68163904288 No Longer Active Tu Landeros MD Active AUGMENTIN 875-125 MG TAB 1 tab by mouth twice daily with food AMOXICILLIN-POT CLAVULANATE 00987336875 No Longer Active Tu Landeros MD Active PREDNISONE 20 MG TAB 2 tabs daily for 3 days, 1 tab daily for 3 days, 1/2 tab daily for 2 days PREDNISONE 76262296219 No Longer Active Tu Landeros MD Active XANAX 0.5 MG TABS 1 tablet every 6 hrs prn ALPRAZOLAM 47476470177 No Longer Active Tu Landeros MD Active PREDNISONE 20 MG TAB 2 tabs daily for 3 days, 1 tab daily for 3 days, 1/2 tab daily for 2 days PREDNISONE 65784318102 No Longer Active Tu Landeros MD Active TRIAMCINOLONE ACETONIDE 0.1 % OINT Apply to affected areas TID for up to 2 weeks TRIAMCINOLONE ACETONIDE 11628873865 No Longer Active Tu Landeros MD Active LORTAB 5 5-500 MG TABS 1/2 to 1 tablet by mouth every 4 hours as needed for pain HYDROCODONE-ACETAMINOPHEN 57096387841 No Longer Active Tu Landeros MD Active MULTIVITAMINS TABS Take one by mouth daily MULTIPLE VITAMIN 32264218538 No Longer Active Tu Landeros MD Active MELATONIN 5 MG TABS Take one by mouth daily MELATONIN 33694661030 No Longer Active Tu Landeros MD Active SOMA 350 MG TAB 1 po q 6 hours prn spasm CARISOPRODOL 23938881612 No Longer Active Tu Landeros MD Active MECLIZINE HCL 25 MG CHEW TAB 1 four times a day as needed for dizziness 08/05 MECLIZINE HCL 74076130314 No Longer Active Fab Morales DO Active ANGEL BREEZE 2 TEST DISK test tid prn GLUCOSE BLOOD 36923609028 No Longer Active Negra Scott RN Active REGLAN 10 MG TAB 1 po TID PRN Nausea METOCLOPRAMIDE HCL 63586618233 No Longer Active Tu Landeros MD Active METFORMIN HCL 500 MG TABS 1 PO BID METFORMIN HCL 22253648437 No Longer Active Tu Landeros MD Active AMBIEN 10 MG TAB 1 tab by mouth at bedtime as needed for sleep ZOLPIDEM TARTRATE 11426005368 No Longer Active Tu Landeros MD Active FLUOXETINE HCL 40 MG CAPS 1 po q day FLUOXETINE HCL 43393158157 No Longer Active Mayra Terry Active FISH OIL 1000 MG CAPS Take one by mouth daily OMEGA-3 FATTY ACIDS 66549618014 Active Tu Landeros MD Active GLUCOSAMINE 500 MG TABS Take 2 tab po qd GLUCOSAMINE 04387763214 Active Tu Landeros MD Active TRILIPIX 135 MG CPDR 1 po qd CHOLINE FENOFIBRATE 18838814147 No Longer Active Tu Landeros MD Active ASPIRIN 81 MG CHEW TAB 1 tablet by mouth daily ASPIRIN 93197861858 Active Tu Landeros MD Active FUROSEMIDE 40 MG TAB 1 tablet by mouth daily FUROSEMIDE 14016809114 Active Tu Landeros MD Active REQUIP 2 MG TABS Take one tablet at bedtime prn ROPINIROLE HCL 24616230764 Active Tu Landeros MD Active KLOR-CON 10 10 MEQ CR-TABS TAKE 2 TABS DAILY POTASSIUM CHLORIDE 72779283705 Active Tu Landeros MD Active AMBIEN 10 MG TAB 1 tab by mouth at bedtime as needed for sleep AMBIEN 10 MG TAB 568236 ZOLPIDEM TARTRATE Inactive METFORMIN HCL 500 MG TABS 1 PO BID METFORMIN HCL 500 MG TABS 587945 METFORMIN HCL Inactive REGLAN 10 MG TAB 1 po TID PRN Nausea REGLAN 10 MG TAB 822169 METOCLOPRAMIDE HCL Inactive MECLIZINE HCL 25 MG CHEW TAB 1 four times a day as needed for dizziness 08/05 MECLIZINE HCL 25 MG CHEW TAB 230129 MECLIZINE HCL Inactive SOMA 350 MG TAB 1 po q 6 hours prn spasm SOMA 350 MG TAB 360643 CARISOPRODOL Inactive MELATONIN 5 MG TABS Take one by mouth daily MELATONIN 5 MG TABS 798864 MELATONIN Inactive MULTIVITAMINS TABS Take one by mouth daily MULTIVITAMINS TABS MULTIPLE VITAMIN Inactive LORTAB 5 5-500 MG TABS 1/2 to 1 tablet by mouth every 4 hours as needed for pain LORTAB 5 5-500 MG TABS HYDROCODONE- ACETAMINOPHEN Inactive XANAX 0.5 MG TABS 1 tablet every 6 hrs prn XANAX 0.5 MG TABS 812568 ALPRAZOLAM Inactive AUGMENTIN 875-125 MG TAB 1 tab by mouth twice daily with food AUGMENTIN 875-125 MG TAB 868003 AMOXICILLIN-POT CLAVULANATE Inactive ALPRAZOLAM 0.5 MG TABS 1 tab every 6hrs as needed ALPRAZOLAM 0.5 MG TABS 433430 ALPRAZOLAM Inactive SPIRONOLACTONE 25 MG TAB 0.5 tablet by mouth daily SPIRONOLACTONE 25 MG TAB 326679 SPIRONOLACTONE Inactive ACCU-CHEK KEYONA PLUS W/DEVICE KIT Use for testing bloodsugars three times daily as needed ACCU-CHEK KEYONA PLUS W/DEVICE KIT BLOOD GLUCOSE MONITORING SUPPL Inactive ACCU-CHEK KEYONA PLUS STRP Use for testing bloodsugars three times daily as needed ACCU-CHEK KEYONA PLUS STRP GLUCOSE BLOOD Inactive ACCU-CHEK FASTCLIX LANCETS MISC Use to check bloodsugar three times daily as needed ACCU-CHEK FASTCLIX LANCETS MISC 48175557437 LANCETS Inactive TRAMADOL HCL 50 MG TABS 1 tablets every 6 hours as needed for pain TRAMADOL HCL 50 MG TABS 875090 TRAMADOL HCL Inactive VENLAFAXINE HCL 75 MG TABS 1 po BID VENLAFAXINE HCL 75 MG TABS 140882 VENLAFAXINE HCL Inactive HYDROCODONE-ACETAMINOPHEN 5-500 MG TABS take one po Q 4-6 hours prn HYDROCODONE-ACETAMINOPHEN 5-500 MG TABS HYDROCODONE- ACETAMINOPHEN Inactive LORTAB 5 5-500 MG TABS 1/2 to 1 tablet by mouth every 4 hours as needed for pain LORTAB 5 5-500 MG TABS HYDROCODONE- ACETAMINOPHEN Inactive LAMISIL 250 MG TAB 1 po qd LAMISIL 250 MG TAB 897331 TERBINAFINE HCL Inactive VENLAFAXINE HCL 37.5 MG TABS 1 po BID VENLAFAXINE HCL 37.5 MG TABS 354091 VENLAFAXINE HCL Inactive CIPRO 500 MG TAB 1 tablet by mouth twice daily CIPRO 500 MG TAB 216647 CIPROFLOXACIN HCL Inactive VENLAFAXINE HCL 75 MG TABS 1 po BID VENLAFAXINE HCL 75 MG TABS 632788 VENLAFAXINE HCL Inactive SIMVASTATIN 40 MG TABS Take one by mouth daily SIMVASTATIN 40 MG TABS 978749 SIMVASTATIN Inactive OMEPRAZOLE 20 MG TBEC 1 PO 30 MIN BEFORE 1ST MEAL OMEPRAZOLE 20 MG TBEC 367811 OMEPRAZOLE Inactive FENOFIBRATE 145 MG TABS 1 po qd FENOFIBRATE 145 MG TABS 068829 FENOFIBRATE Inactive BACTRIM DS 800-160 MG TABS 1 bid x 14 day start 09-28-13 BACTRIM DS 800-160 MG TABS 062480 SULFAMETHOXAZOLE-TRIMETHOPRIM Inactive B-12 100 MCG TABS Take one by mouth daily B-12 100 MCG TABS CYANOCOBALAMIN Inactive GABAPENTIN 100 MG CAPS 1 po bid GABAPENTIN 100 MG CAPS 431386 GABAPENTIN Inactive HYDROCODONE-ACETAMINOPHEN 5-325 MG TABS 1 tab by mouth every 6 hours as needed for pain HYDROCODONE-ACETAMINOPHEN 5-325 MG TABS 275900 HYDROCODONE-ACETAMINOPHEN Inactive CIPRO 500 MG TABS 1 bid x 14 days start 09-28-13 CIPRO 500 MG TABS 230830 CIPROFLOXACIN HCL Inactive ALIGN 4 MG CAPS [...] as needed DICLOFENAC SODIUM 50 MG TBEC 697802 DICLOFENAC SODIUM Inactive PREDNISONE 20 MG TAB 2 tablets once daily for 2 days, then 1 tablet once daily for 2 days PREDNISONE 20 MG TAB 204778 PREDNISONE Inactive TRUEDRAW LANCING DEVICE MISC Test [...] 2 weeks TRIAMCINOLONE ACETONIDE 0.1 % OINT 5683633 TRIAMCINOLONE ACETONIDE Inactive PREDNISONE 20 MG TAB 2 tabs daily for 3 days, 1 tab daily for 3 days, 1/2 tab daily for 2 days PREDNISONE 20 MG TAB 478981 PREDNISONE Inactive PREDNISONE 20 MG TAB 2 tabs daily for 3 days, 1 tab daily for 3 days, 1/2 tab daily for 2 days PREDNISONE 20 MG TAB 364400 PREDNISONE Inactive BACTRIM DS 800-160 MG TABS 1 po BID x 7 days BACTRIM DS 800-160 MG TABS 298361 SULFAMETHOXAZOLE-TRIMETHOPRIM Inactive ZITHROMAX 250 MG TAB 2 po today, then 1 po q days 2-5 ZITHROMAX 250 MG TAB 6385363 AZITHROMYCIN Inactive Advance Directives Directive Description Start Date DISCUSSED WITH PATIENT -- NO DECISION MADE Immunizations Vaccine Administration Date Value Standard Description Seasonal influenza vaccine, injectable, containing preservative, for > 3 years old (Afluria, FluLaval, Fluzone, Fluvirin, Fluarix, Agriflu(>=18 yo)) Fluzone (>3 yrs.) [[id number]] Influenza, seasonal, injectable influenza immunization (Flu Vax) has been administered 02/22/2012 influenza virus vaccine, unspecified formulation Seasonal influenza vaccine, injectable, containing preservative, for > 3 years old (Afluria, FluLaval, Fluzone, Fluvirin, Fluarix, Agriflu(>=18 yo)) Fluzone (>3 yrs.) [PRY559] Influenza, seasonal, injectable Vital Signs Date Name [...] mg/g mg/g{creat} 0-29 sodium, serum 142 mmol/L 229-538 9560/10/08 potassium, serum 4.5 mmol/L 3.5-5.2 chloride, serum [...] Panel - Chemistry cholesterol, serum 124 mg/dL 936-656 8996/01/12 triglyceride, serum, fasting 135 mg/dL 30-200 HDL cholesterol, serum 41 mg/dL 32-96 LDL cholesterol, serum 56 mg/dL 0-130 sodium, serum 140 mmol/L 148-904 1957/01/12 carbon dioxide, venous blood 27.7 mmol/L 21.0-32.0 potassium, serum 4.5 mmol/L 3.5-5.2 chloride, serum 104 mmol/L 98-107 blood glucose 139 mg/dL 65-110 urea nitrogen, blood 16 mg/dL 7-18 alanine aminotransferase (SGPT), serum 32 U/L 12-78 aspartate aminotransferase (SGOT), serum 25 U/L 15-37 calcium, serum 9.1 mg/dL 8.5-10.1 bilirubin, serum, total 0.50 mg/dL 0.00-1.00 Encounters Code Encounter Date Provider Facility CPT-50765 Level 4 Est. 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 Patient 14:05:18 OIL WELL FISHING TOOL OPERATOR Tu Landeros MD [facility] CPT-25653 Level 3 Est. Patient 10:06:54 OIL WELL FISHING TOOL OPERATOR [facility] Level 4 Est. Patient 13:50:18 OIL WELL FISHING TOOL OPERATOR Tu Landeros MD [facility] CPT-06654 Level 3 Est. Patient 10:30:04 CDT Tu Landeros MD [facility] CPT-89216 Level 4 Est. Patient 11:03:38 CDT Tu Landeros MD [facility] CPT-94105 Level 3 Est. Patient 10:20:44 CDT Fab Morales DO [facility] CPT-25139 Level 4 Est. Patient 14:38:57 CDT Tu Landeros MD [facility] CPT-42417 Level 4 Est. Patient 14:27:39 OIL WELL FISHING TOOL OPERATOR Tu Landeros MD [facility] CPT-86940 Level 4 Est. Patient 09:45:25 CDT Tu Landeros MD [facility] CPT-61486 Level 4 Est. Patient 09:05:20 OIL WELL FISHING TOOL OPERATOR Tu Landeros MD [facility] CPT-27639 Level 4 Est. Patient 14:09:06 CDT Tu Landeros MD [facility] CPT-70684 Level 3 Est. Patient 13:36:54 CDT Tu Landeros MD [facility] CPT-75549 Level 3 Est. Patient 08:59:14 CDT Tu Landeros MD [facility] CPT-51942 Level 3 Est. Patient 13:48:35 CDT Fab Morales DO [facility] CPT-66591 Level 4 Est. Patient 10:05:48 CDT Tu Landeros MD [facility] CPT-36005 Level 3 Est. Patient 13:38:42 CDT Marek BANKS [facility] CPT-17500 Level 5 Est. Patient 08:08:39 CDT Jerrica FRANCIS [facility] CPT-21809 Level 4 Est. Patient 14:23:38 CDT Tu Landeros MD [facility] CPT-97793 Level 3 Est. Patient 11:44:04 CDT Tu Landeros MD [facility] CPT-29841 Level 3 Est. 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 Patient 11:03:14 OIL WELL FISHING TOOL OPERATOR Tu Landeros MD [facility] CPT-03398 Level 3 Est. Patient 12:42:49 CDT Tu Landeros MD [facility] CPT-21437 Level 3 Est. Patient 11:52:06 CDT Tu Landeros MD [facility] CPT-63601 Level 3 Est. Patient 13:58:11 CDT Tu Landeros MD [facility] CPT-83485 Level 3 Est. Patient 17:50:07 CDT Fab Morales DO [facility] CPT-51820 Level 3 Est. Patient 12:06:29 CDT Elvira Cervantes MD PhD [facility] CPT-27267 Level 3 Est. Patient 15:50:32 CDT Tu Landeros MD [facility] CPT-66947 Level 4 Est. Patient 16:08:29 CDT Tu Landeros MD [facility] CPT-60872 Level 3 Est. Patient 16:04:19 CDT Tu Landeros MD [facility] CPT-00734 Level 3 Est. Patient 11:22:30 OIL WELL FISHING TOOL OPERATOR Tu Landeros MD [facility] CPT-83642 Level 4 Est. Patient 16:24:02 OIL WELL FISHING TOOL OPERATOR Tu Landeros MD [facility] CPT-75930 Level 3 Est. Patient 17:21:23 OIL WELL FISHING TOOL OPERATOR Tu Landeros MD [facility] Procedures Code Procedure Name Date Entry Date Standard Description CPT-G0438 Initial Annual Wellness Exam 14:13:04 CDT CPT-48576 Breathing Tx 10:06:54 OIL WELL FISHING TOOL OPERATOR CPT-28937 Postop F/U Visit 10:02:45 CDT CPT-LR Lesion Removal 09:02:56 CDT CPT-JTINJ Asp/Joint Injection 15:51:27 OIL WELL FISHING TOOL OPERATOR CPT-OV Office Visit 15:52:02 OIL WELL FISHING TOOL OPERATOR CPT-OV Office Visit 15:45:11 CDT CPT-000 Give Zostavax 14:09:06 CDT CPT-46384 Administration single or combination vaccine inc oral 15 :19:04 CDT CPT-96660 Zoster Vaccine (Zostavax) 15:19:04 CDT CPT-87947 Administration single or combination vaccine inc oral 20 :51:03 CDT CPT-66696 Influenza split virus > age 3 20:51:03 CDT CPT-85340 No Charge Offi Visit 14:52:03 CDT CPT-OV Office Visit 14:57:43 CDT CPT-OV Office Visit 15:22:32 CDT CPT-45357 Administration single or combination vaccine inc oral 11 :33:15 CDT CPT-87009 Influenza split virus > age 3 11:33:15 CDT
--- OUTSIDE RECORDS SUMMARY | 2018-04-25 13:53 | XMS REPORT | Clinical Summary ---
Author Author Admin, SACHI Organization [employer] Address Unknown Phone Unavailable Allergies, Adverse Reactions, [...] OTHER NONSPECIFIC SKIN ERUPTION 782.1 Resolved Tu Landreos MD Rash and other nonspecific skin eruption [...] blood sugar BID Dx: E11.9 GLUCOSE BLOOD 29927948694 Active Tu Landeros MD Active TRUE METRIX AIR GLUCOSE METER W/DEVICE KIT Test blood glucose BID Dx: E11.9 BLOOD GLUCOSE MONITORING SUPPL 77596707347 Active Tu Landeros MD Active TRUETEST TEST INVITR STRP test blood sugar twice daily. DX 250.0 GLUCOSE BLOOD 47869841692 No Longer Active Mirna Stanley LPN Active TRUEDRAW LANCING DEVICE MISC test blood sugar twice daily dx: 250.00 LANCET DEVICES 42731269451 No Longer Active Mirna Stanley LPN Active ENALAPRIL MALEATE 20 MG TABS 2 po qd ENALAPRIL MALEATE 29359906120 Active Tu Landeros MD Active SUPER B COMPLEX/VITAMIN C TABS 1 qd B COMPLEX-C 45806829861 No Longer Active Tu Landeros MD Active ASPIRIN EC 81 MG ORAL TBEC 1 po qd ASPIRIN 86423069500 Active Tu Landeros MD Active GLUCOSAMINE 500 MG TABS 2 po qd GLUCOSAMINE Active Tu Landeros MD Active SIMVASTATIN 40 MG TABS 0.5 po qHS SIMVASTATIN 11436894579 Active Tu Landeros MD Active FISH OIL 1000 MG CAPS 1 po qd OMEGA-3 FATTY ACIDS 54113200576 Active Tu Landeros MD Active METFORMIN HCL 1000 MG TABS 1 po BID METFORMIN HCL 65187177495 Active Tu Landeros MD Active KLOR-CON 10 10 MEQ CR-TABS 2 po qd POTASSIUM CHLORIDE 21404464684 Active Tu Landeros MD Active FUROSEMIDE 40 MG TAB 1 po qd FUROSEMIDE 62684314295 Active Tu Landeros MD Active REQUIP 2 MG ORAL TABS 1 po qHS PRN Restless legs ROPINIROLE HCL 11915776052 Active Tu Landeros MD Active VENLAFAXINE HCL 37.5 MG TABS 1 po BID VENLAFAXINE HCL 70425022445 Active Tu Landeros MD Active GABAPENTIN 100 MG CAPS 1 po BID GABAPENTIN 12312767791 Active José Luis Becerra MD Active REQUIP 2 MG TABS Take one tablet at bedtime prn ROPINIROLE HCL 86465188227 No Longer Active Tu Landeros MD Active VENTOLIN HFA 108 (90 BASE) MCG/ACT AERS 1-2 puffs every 4 hours if needed for cough/congestion ALBUTEROL SULFATE 29733753150 No Longer Active Ambika Aden APRN Active ZITHROMAX 250 MG TAB 2 po today, then 1 po q days 2-5 AZITHROMYCIN 57050930975 No Longer Active Miranda Suresh APRN Active FLONASE 50 MCG/ACT SUSP 1 spray each nostril twice daily until bottle empty FLUTICASONE PROPIONATE 42994137156 No Longer Active Tu Landeros MD Active COLACE 100 MG CAP 1 po BID PRN Constipation DOCUSATE SODIUM 19030695310 Active Tu Landeros MD Active TRUERESULT BLOOD GLUCOSE W/DEVICE KIT test blood sugar twice daily dx 250.00 BLOOD GLUCOSE MONITORING SUPPL 37667287550 No Longer Active Tu Landeros MD Active TRUEDRAW LANCING DEVICE MISC Test twice a day dx 250.0 LANCET DEVICES 62556362639 No Longer Active Tu Landeros MD Active PREDNISONE 20 MG TAB 2 tablets once daily for 2 days, then 1 tablet once daily for 2 days PREDNISONE 16711587305 No Longer Active Tu Landeros MD Active DICLOFENAC SODIUM 50 MG TBEC 1 tablet by mouth three times a day as needed DICLOFENAC SODIUM 06061822830 No Longer Active Fab Morales DO Active EMBRACE BLOOD GLUCOSE TEST STRP test blood sugar twice daily DX 250.0 2014 GLUCOSE BLOOD 71420414760 No Longer Active Tu Landeros MD Active TRUETEST TEST STRP test blood sugar three times daily dx: 250.00 GLUCOSE BLOOD 44898154829 No Longer Active Suzebianca VOGEL Active TRUERESULT BLOOD GLUCOSE W/DEVICE KIT use to test blood sugar tid dx: 250.00 BLOOD GLUCOSE MONITORING SUPPL 34134686061 No Longer Active Suze VOGEL Active ALIGN 4 MG CAPS 1 tid PROBIOTIC PRODUCT 24032269584 No Longer Active Shaun Sy MD Active CIPRO 500 MG TABS 1 bid x 14 days start 09-28-13 CIPROFLOXACIN HCL 70761200171 No Longer Active Shaun Sy MD Active TRAMADOL HCL 50 MG TABS 1-2 tablets every 6 hours as needed for pain TRAMADOL HCL 61303711375 Active JASPREET Moffett Active HYDROCODONE-ACETAMINOPHEN 5-325 MG TABS 1 tab by mouth every 6 hours as needed for pain HYDROCODONE-ACETAMINOPHEN 72123082761 No Longer Active Tu Landeros MD Active OMEPRAZOLE 20 MG CPDR 1 po q a.m. OMEPRAZOLE 76244068165 Active Tu Landeros MD Active GABAPENTIN 100 MG CAPS 1 po bid GABAPENTIN 13507061393 No Longer Active Tu Landeros MD Active B-12 100 MCG TABS Take one by mouth daily CYANOCOBALAMIN 76851147627 No Longer Active Tu Landeros MD Active BACTRIM DS 800-160 MG TABS 1 bid x 14 day start 09-28-13 SULFAMETHOXAZOLE-TRIMETHOPRIM 89604484809 No Longer Active Tu Landeros MD Active CARVEDILOL 12.5 MG TABS 1 po BID CARVEDILOL 24855270584 Active Tu Landeros MD Active TRILIPIX 135 MG CPDR 1 q hs CHOLINE FENOFIBRATE 22957999710 Active Tu Landeros MD Active FENOFIBRATE 145 MG TABS 1 po qd FENOFIBRATE 32601503538 No Longer Active JASPREET Perez Active OMEPRAZOLE 20 MG TBEC 1 PO 30 MIN BEFORE 1ST MEAL OMEPRAZOLE 96090018000 No Longer Active JASPREET Perez Active SIMVASTATIN 40 MG TABS Take one by mouth daily SIMVASTATIN 16594179821 No Longer Active JASPREET Perez Active VENLAFAXINE HCL 75 MG TABS 1 po BID VENLAFAXINE HCL 56380598513 No Longer Active JASPREET Perez Active CIPRO 500 MG TAB 1 tablet by mouth twice daily CIPROFLOXACIN HCL 70006957316 No Longer Active Tu Landeros MD Active VENLAFAXINE HCL 37.5 MG TABS 1 po BID VENLAFAXINE HCL 76439828631 No Longer Active Suze NUNOA Active LAMISIL 250 MG TAB 1 po qd TERBINAFINE HCL 25482976916 No Longer Active Tu Landeros MD Active LORTAB 5 5-500 MG TABS 1/2 to 1 tablet by mouth every 4 hours as needed for pain HYDROCODONE-ACETAMINOPHEN 20900562619 No Longer Active Tu Landeros MD Active HYDROCODONE-ACETAMINOPHEN 5-500 MG TABS take one po Q 4-6 hours prn HYDROCODONE-ACETAMINOPHEN 04589013377 No Longer Active Tu Landeros MD Active BACTRIM DS 800-160 MG TABS 1 po BID x 7 days SULFAMETHOXAZOLE-TRIMETHOPRIM 73568679971 No Longer Active Tu Landeros MD Active VENLAFAXINE HCL 75 MG TABS 1 po BID VENLAFAXINE HCL 49315370903 No Longer Active Elvira Cervantes MD PhD Active TRAMADOL HCL 50 MG TABS 1 tablets every 6 hours as needed for pain TRAMADOL HCL 64774663484 No Longer Active Tu Landeros MD Active ACCU-CHEK FASTCLIX LANCETS MISC Use to check bloodsugar three times daily as needed LANCETS 07017900451 No Longer Active Tu Landeros MD Active ACCU-CHEK KEYONA PLUS STRP Use for testing bloodsugars three times daily as needed GLUCOSE BLOOD 89851089849 No Longer Active Tu Landeros MD Active ACCU-CHEK KEYONA PLUS W/DEVICE KIT Use for testing bloodsugars three times daily as needed BLOOD GLUCOSE MONITORING SUPPL 87243700231 No Longer Active Tu Landeros MD Active SPIRONOLACTONE 25 MG TAB 0.5 tablet by mouth daily SPIRONOLACTONE 64405521962 No Longer Active Tu Landeros MD Active ALPRAZOLAM 0.5 MG TABS 1 tab every 6hrs as needed ALPRAZOLAM 02657637039 No Longer Active Tu Landeros MD Active AUGMENTIN 875-125 MG TAB 1 tab by mouth twice daily with food AMOXICILLIN-POT CLAVULANATE 75707202244 No Longer Active Tu Landeros MD Active PREDNISONE 20 MG TAB 2 tabs daily for 3 days, 1 tab daily for 3 days, 1/2 tab daily for 2 days PREDNISONE 47358322236 No Longer Active Tu Landeros MD Active XANAX 0.5 MG TABS 1 tablet every 6 hrs prn ALPRAZOLAM 79948418624 No Longer Active Tu Landeros MD Active PREDNISONE 20 MG TAB 2 tabs daily for 3 days, 1 tab daily for 3 days, 1/2 tab daily for 2 days PREDNISONE 72007206915 No Longer Active Tu Landeros MD Active TRIAMCINOLONE ACETONIDE 0.1 % OINT Apply to affected areas TID for up to 2 weeks TRIAMCINOLONE ACETONIDE 72969112292 No Longer Active Tu Landeros MD Active LORTAB 5 5-500 MG TABS 1/2 to 1 tablet by mouth every 4 hours as needed for pain HYDROCODONE-ACETAMINOPHEN 50448695133 No Longer Active Tu Landeros MD Active MULTIVITAMINS TABS Take one by mouth daily MULTIPLE VITAMIN 04643526457 No Longer Active Tu Landeros MD Active MELATONIN 5 MG TABS Take one by mouth daily MELATONIN 53780868885 No Longer Active Tu Landeros MD Active SOMA 350 MG TAB 1 po q 6 hours prn spasm CARISOPRODOL 75325776570 No Longer Active Tu Landeros MD Active MECLIZINE HCL 25 MG CHEW TAB 1 four times a day as needed for dizziness 08/05 MECLIZINE HCL 96417012883 No Longer Active Fab Morales DO Active ANGEL BREEZE 2 TEST DISK test tid prn GLUCOSE BLOOD 07626575814 No Longer Active Negra Scott RN Active REGLAN 10 MG TAB 1 po TID PRN Nausea METOCLOPRAMIDE HCL 23633264249 No Longer Active Tu Landeros MD Active METFORMIN HCL 500 MG TABS 1 PO BID METFORMIN HCL 74909440774 No Longer Active Tu Landeros MD Active AMBIEN 10 MG TAB 1 tab by mouth at bedtime as needed for sleep ZOLPIDEM TARTRATE 52367056217 No Longer Active Tu Landeros MD Active FLUOXETINE HCL 40 MG CAPS 1 po q day FLUOXETINE HCL 66330430587 No Longer Active Mayra Terry Active TRILIPIX 135 MG CPDR 1 po qd CHOLINE FENOFIBRATE 28468117831 No Longer Active Tu Landeros MD Active AMBIEN 10 MG TAB 1 tab by mouth at bedtime as needed for sleep AMBIEN 10 MG TAB 807517 ZOLPIDEM TARTRATE Inactive METFORMIN HCL 500 MG TABS 1 PO BID METFORMIN HCL 500 MG TABS 648585 METFORMIN HCL Inactive REGLAN 10 MG TAB 1 po TID PRN Nausea REGLAN 10 MG TAB 003813 METOCLOPRAMIDE HCL Inactive MECLIZINE HCL 25 MG CHEW TAB 1 four times a day as needed for dizziness 08/05 MECLIZINE HCL 25 MG CHEW TAB 980328 MECLIZINE HCL Inactive SOMA 350 MG TAB 1 po q 6 hours prn spasm SOMA 350 MG TAB 100365 CARISOPRODOL Inactive MELATONIN 5 MG TABS Take one by mouth daily MELATONIN 5 MG TABS 516774 MELATONIN Inactive MULTIVITAMINS TABS Take one by mouth daily MULTIVITAMINS TABS MULTIPLE VITAMIN Inactive LORTAB 5 5-500 MG TABS 1/2 to 1 tablet by mouth every 4 hours as needed for pain LORTAB 5 5-500 MG TABS HYDROCODONE- ACETAMINOPHEN Inactive XANAX 0.5 MG TABS 1 tablet every 6 hrs prn XANAX 0.5 MG TABS 063377 ALPRAZOLAM Inactive AUGMENTIN 875-125 MG TAB 1 tab by mouth twice daily with food AUGMENTIN 875-125 MG TAB 726900 AMOXICILLIN-POT CLAVULANATE Inactive ALPRAZOLAM 0.5 MG TABS 1 tab every 6hrs as needed ALPRAZOLAM 0.5 MG TABS 030678 ALPRAZOLAM Inactive SPIRONOLACTONE 25 MG TAB 0.5 tablet by mouth daily SPIRONOLACTONE 25 MG TAB 500283 SPIRONOLACTONE Inactive ACCU-CHEK KEYONA PLUS W/DEVICE KIT Use for testing bloodsugars three times daily as needed ACCU-CHEK KEYONA PLUS W/DEVICE KIT BLOOD GLUCOSE MONITORING SUPPL Inactive ACCU-CHEK KEYONA PLUS STRP Use for testing bloodsugars three times daily as needed ACCU-CHEK KEYONA PLUS STRP GLUCOSE BLOOD Inactive ACCU-CHEK FASTCLIX LANCETS MISC Use to check bloodsugar three times daily as needed ACCU-CHEK FASTCLIX LANCETS MISC 05463595543 LANCETS Inactive TRAMADOL HCL 50 MG TABS 1 tablets every 6 hours as needed for pain TRAMADOL HCL 50 MG TABS 401325 TRAMADOL HCL Inactive VENLAFAXINE HCL 75 MG TABS 1 po BID VENLAFAXINE HCL 75 MG TABS 714220 VENLAFAXINE HCL Inactive HYDROCODONE-ACETAMINOPHEN 5-500 MG TABS take one po Q 4-6 hours prn HYDROCODONE-ACETAMINOPHEN 5-500 MG TABS HYDROCODONE- ACETAMINOPHEN Inactive LORTAB 5 5-500 MG TABS 1/2 to 1 tablet by mouth every 4 hours as needed for pain LORTAB 5 5-500 MG TABS HYDROCODONE- ACETAMINOPHEN Inactive LAMISIL 250 MG TAB 1 po qd LAMISIL 250 MG TAB 097887 TERBINAFINE HCL Inactive VENLAFAXINE HCL 37.5 MG TABS 1 po BID VENLAFAXINE HCL 37.5 MG TABS 327260 VENLAFAXINE HCL Inactive CIPRO 500 MG TAB 1 tablet by mouth twice daily CIPRO 500 MG TAB 346990 CIPROFLOXACIN HCL Inactive VENLAFAXINE HCL 75 MG TABS 1 po BID VENLAFAXINE HCL 75 MG TABS 341966 VENLAFAXINE HCL Inactive SIMVASTATIN 40 MG TABS Take one by mouth daily SIMVASTATIN 40 MG TABS 839208 SIMVASTATIN Inactive OMEPRAZOLE 20 MG TBEC 1 PO 30 MIN BEFORE 1ST MEAL OMEPRAZOLE 20 MG TBEC 116147 OMEPRAZOLE Inactive FENOFIBRATE 145 MG TABS 1 po qd FENOFIBRATE 145 MG TABS 234502 FENOFIBRATE Inactive BACTRIM DS 800-160 MG TABS 1 bid x 14 day start 09-28-13 BACTRIM DS 800-160 MG TABS 971810 SULFAMETHOXAZOLE-TRIMETHOPRIM Inactive B-12 100 MCG TABS Take one by mouth daily B-12 100 MCG TABS CYANOCOBALAMIN Inactive GABAPENTIN 100 MG CAPS 1 po bid GABAPENTIN 100 MG CAPS 830780 GABAPENTIN Inactive HYDROCODONE-ACETAMINOPHEN 5-325 MG TABS 1 tab by mouth every 6 hours as needed for pain HYDROCODONE-ACETAMINOPHEN 5-325 MG TABS 049793 HYDROCODONE-ACETAMINOPHEN Inactive CIPRO 500 MG TABS 1 bid x 14 days start 09-28-13 CIPRO 500 MG TABS 811436 CIPROFLOXACIN HCL Inactive ALIGN 4 MG CAPS [...] day as needed DICLOFENAC SODIUM 50 MG [facility] 337255 DICLOFENAC SODIUM Inactive PREDNISONE 20 MG TAB 2 tablets once daily for 2 days, then 1 tablet once daily for 2 days PREDNISONE 20 MG TAB 130366 PREDNISONE Inactive TRUEDRAW LANCING DEVICE MISC Test [...] at bedtime prn REQUIP 2 MG TABS 918102 ROPINIROLE HCL Inactive SUPER B COMPLEX/VITAMIN C TABS 1 qd SUPER B COMPLEX/ VITAMIN C TABS 85464510980 B COMPLEX-C Inactive TRUEDRAW LANCING DEVICE MISC test blood sugar twice daily dx: 250.00 TRUEDRAW LANCING DEVICE MISC LANCET DEVICES Inactive TRUETEST TEST INVITR STRP test blood sugar twice daily. DX 250.0 TRUETEST TEST INVITR STRP GLUCOSE BLOOD Inactive TRIAMCINOLONE ACETONIDE 0.1 % OINT Apply to affected areas TID for up to 2 weeks TRIAMCINOLONE ACETONIDE 0.1 % OINT 4081143 TRIAMCINOLONE ACETONIDE Inactive PREDNISONE 20 MG TAB 2 tabs daily for 3 days, 1 tab daily for 3 days, 1/2 tab daily for 2 days PREDNISONE 20 MG TAB 424358 PREDNISONE Inactive PREDNISONE 20 MG TAB 2 tabs daily for 3 days, 1 tab daily for 3 days, 1/2 tab daily for 2 days PREDNISONE 20 MG TAB 930467 PREDNISONE Inactive BACTRIM DS 800-160 MG TABS 1 po BID x 7 days BACTRIM DS 800-160 MG TABS 298564 SULFAMETHOXAZOLE-TRIMETHOPRIM Inactive ZITHROMAX 250 MG TAB 2 po today, then 1 po q days 2-5 ZITHROMAX 250 MG TAB 6258857 AZITHROMYCIN Inactive Advance Directives Directive Description Start Date DISCUSSED WITH PATIENT -- NO DECISION MADE Immunizations Vaccine Administration Date Value Standard Description Seasonal influenza vaccine, injectable, containing preservative, for > 3 years old (Afluria, FluLaval, Fluzone, Fluvirin, Fluarix, Agriflu(>=18 yo)) Fluzone (>3 yrs.) [[id number]] Influenza, seasonal, injectable influenza immunization (Flu Vax) has been administered 02/22/2012 influenza virus vaccine, unspecified formulation Seasonal influenza vaccine, injectable, containing preservative, for > 3 years old (Afluria, FluLaval, Fluzone, Fluvirin, Fluarix, Agriflu(>=18 yo)) Fluzone (>3 yrs.) [[id number]] Influenza, seasonal, injectable Vital Signs Date Name [...] E&M - 3141-9 311.0 [lb_av] Weight Measured Diagnostic Results Date Name [...] Magnesium - Chemistry sodium, serum 143 mmol/L 393-815 5759/01/10 creatinine, serum 1.06 mg/dL 0.55-1.30 alanine aminotransferase (SGPT), serum 42 U/L 12-78 aspartate aminotransferase (SGOT), serum 32 U/L 15-37 calcium, serum 9.3 mg/dL 8.5-10.1 bilirubin, serum, total 0.20 mg/dL 0.00-1.00 cholesterol, serum 177 mg/dL 232-257 6822/01/10 triglyceride, serum, fasting 320 mg/dL 30-200 HDL cholesterol, serum 46 mg/dL 32-96 LDL cholesterol, serum 67 mg/dL 0-130 carbon dioxide, venous blood 28.0 mmol/L 21.0-32.0 potassium, serum 4.5 mmol/L 3.5-5.2 chloride, serum 104 mmol/L 98-107 blood glucose 158 mg/dL 65-110 urea nitrogen, blood 23 mg/dL 7-18 Lab Report: HGBA1C - Chemistry chloride, serum 104 mmol/L 98-107 potassium, serum 4.3 mmol/L 3.5-5.2 sodium, serum 140 mmol/L 015-859 7516/09/07 hemoglobin A1C, blood, as % of total hemoglobin 7.4 % 4.3-6.0 blood glucose 156 mg/dL 65-110 hemoglobin A1C, blood, as % of total hemoglobin 7.1 % 4.3-6.0 carbon dioxide, venous blood 27.7 mmol/L 21.0-32.0 calcium, serum 9.3 mg/dL 8.5-10.1 urea nitrogen, blood 23 mg/dL 7-18 creatinine, serum 1.21 mg/dL 0.55-1.30 Lab Report: MicroAlb Random w/creat/6517 - Urinalysis microalbumin/total urine volume 21 mg/L Units converted. See lab report for original value. microalbumin/creatinine ratio, urine 11 MCG/MG CREAT mg/L <30 Encounters Code Encounter Date Provider Facility CPT-18803 Level 4 Est. Patient 09:08:17 NETWORK SUPPORT Tu Landeros MD [facility] CPT-70943 Level 4 Est. Patient 14:40:19 CDT Tu Landeros MD [facility] CPT-97851 Level 4 Est. Patient 14:06:04 NETWORK SUPPORT Tu Landeros MD [facility] CPT-13924 Level 3 Est. Patient 14:05:18 NETWORK SUPPORT Tu Landeros MD [facility] CPT-58116 Level 3 Est. Patient 10:06:54 NETWORK SUPPORT Miranda Suresh APRN [facility] CPT-83685 Level 4 Est. Patient 13:50:18 NETWORK SUPPORT Tu Landeros MD [facility] CPT-70043 Level 3 Est. Patient 10:30:04 CDT Tu Landeros MD [facility] CPT-98307 Level 4 Est. Patient 11:03:38 CDT Tu Landeros MD [facility] CPT-77587 Level 3 Est. Patient 10:20:44 CDT Fab Morales DO [facility] CPT-34112 Level 4 Est. Patient 14:38:57 CDT Tu Landeros MD [facility] CPT-06400 Level 4 Est. Patient 14:27:39 NETWORK SUPPORT Tu Landeros MD [facility] CPT-86162 Level 4 Est. Patient 09:45:25 CDT Tu Landeros MD [facility] CPT-06592 Level 4 Est. Patient 09:05:20 NETWORK SUPPORT Tu Landeros MD [facility] CPT-83091 Level 4 Est. Patient 14:09:06 CDT Tu Landeros MD [facility] CPT-40406 Level 3 Est. Patient 13:36:54 CDT Tu Landeros MD [facility] CPT-05832 Level 3 Est. Patient 08:59:14 CDT Tu Landeros MD [facility] CPT-26513 Level 3 Est. Patient 13:48:35 CDT Fab Morales DO [facility] CPT-01727 Level 4 Est. Patient 10:05:48 CDT Tu Landeros MD [facility] CPT-02668 Level 3 Est. Patient 13:38:42 CDT Marek BANKS [facility] CPT-49247 Level 5 Est. Patient 08:08:39 CDT Jerrica FRANCIS [facility] CPT-31506 Level 4 Est. Patient 14:23:38 CDT Tu Landeros MD [facility] CPT-43312 Level 3 Est. Patient 11:44:04 CDT Tu Landeros MD [facility] CPT-90642 Level 3 Est. Patient 11:03:20 NETWORK SUPPORT Tu Landeros MD [facility] CPT-15367 Level 3 Est. Patient 11:03:14 NETWORK SUPPORT Tu Landeros MD [facility] CPT-44775 Level 3 Est. Patient 12:42:49 CDT Tu Landeros MD [facility] CPT-85215 Level 3 Est. Patient 11:52:06 CDT Tu Landeros MD [facility] CPT-22059 Level 3 Est. Patient 13:58:11 CDT Tu Landeros MD [facility] CPT-37631 Level 3 Est. Patient 17:50:07 CDT Fab Morales DO [facility] CPT-61916 Level 3 Est. Patient 12:06:29 CDT Elvira Cervantes MD, PhD [facility] CPT-16065 Level 3 Est. Patient 15:50:32 CDT Tu Landeros MD [facility] CPT-94752 Level 4 Est. Patient 16:08:29 CDT Tu Landeros MD [facility] CPT-44235 Level 3 Est. Patient 16:04:19 CDT Tu Landeros MD [facility] CPT-06833 Level 3 Est. Patient 11:22:30 NETWORK SUPPORT Tu Landeros MD [facility] CPT-98650 Level 4 Est. Patient 16:24:02 NETWORK SUPPORT Tu Landeros MD [facility] CPT-29640 Level 3 Est. Patient 17:21:23 NETWORK SUPPORT Tu Landeros MD [facility] Procedures Code Procedure Name Date Entry Date Standard Description CPT-96677 Magnesium - LAB USE ONLY 11:14:20 NETWORK SUPPORT CPT-30739 Lipid - LAB USE ONLY 11:14:20 NETWORK SUPPORT CPT-81711 HGBA1C - LAB USE ONLY 11:14:20 NETWORK SUPPORT CPT-44799 CMP - LAB USE ONLY 11:14:19 NETWORK SUPPORT CPT-49958 CBC - LAB USE ONLY 11:14:19 NETWORK SUPPORT CPT-41878 Venipuncture Draw Fee 11:14:18 NETWORK SUPPORT CPT-23322 First Vx - Ix admin for Medicare patients 16:46:52 CDT CPT-19039 Fluzone Preservative Free Intramuscular Suspension 16:46 :51 CDT CPT-74602 CBC - LAB USE ONLY 17:14:46 CDT CPT-30613 HGBA1C - LAB USE ONLY 17:14:46 CDT CPT-04947 Venipuncture Draw Fee 17:14:46 CDT CPT-G0438 Initial Annual Wellness Exam 14:13:04 CDT CPT-53740 Breathing Tx 10:06:54 NETWORK SUPPORT CPT-76826 Postop F/U Visit 10:02:45 CDT CPT-LR Lesion Removal 09:02:56 CDT CPT-JTINJ Asp/Joint Injection 15:51:27 NETWORK SUPPORT CPT-OV Office Visit 15:52:02 NETWORK SUPPORT CPT-OV Office Visit 15:45:11 CDT CPT-000 Give Zostavax 14:09:06 CDT CPT-01998 Administration single or combination vaccine inc oral 15 :19:04 CDT CPT-11048 Zoster Vaccine (Zostavax) 15:19:04 CDT CPT-69665 Administration single or combination vaccine inc oral 20 :51:03 CDT CPT-32756 Influenza split virus > age 3 20:51:03 CDT CPT-88476 No Charge Offi Visit 14:52:03 CDT CPT-OV Office Visit 14:57:43 CDT CPT-OV Office Visit 15:22:32 CDT CPT-68254 Administration single or combination vaccine inc oral 11 :33:15 CDT CPT-67548 Influenza split virus > age 3 11:33:15 CDT
--- OUTSIDE RECORDS SUMMARY | 2018-04-25 13:54 | XMS REPORT | Clinical Summary ---
Author Author Admin, SACHI Clemons [facility] Address Unknown Phone Unavailable Allergies, Adverse Reactions, [...] sugar twice daily dx: 250.00 LANCET DEVICES 79441936117 Active Tu Landeros MD Active TRUEDRAW LANCING DEVICE MISC Test twice a day dx 250.0 LANCET DEVICES 00361819990 Active Tu Landeros MD Active TRUERESULT BLOOD GLUCOSE W/DEVICE KIT test blood sugar twice daily dx 250.00 BLOOD GLUCOSE MONITORING SUPPL 86791830919 Active Tu Landeros MD Active TRUETEST TEST INVITR STRP test blood sugar twice daily. DX 250.0 GLUCOSE BLOOD 65977602656 Active Tu Landeros MD Active EMBRACE BLOOD GLUCOSE TEST STRP test blood sugar twice daily DX 250.0 2014 GLUCOSE BLOOD 36708133319 No Longer Active Tu Landeros MD Active TRUETEST TEST STRP test blood sugar three times daily dx: 250.00 GLUCOSE BLOOD 78648876960 No Longer Active Suzebianca VOGEL Active TRUERESULT BLOOD GLUCOSE W/DEVICE KIT use to test blood sugar tid dx: 250.00 BLOOD GLUCOSE MONITORING SUPPL 26712203200 No Longer Active Suze Corey RMA Active ALIGN 4 MG CAPS 1 tid PROBIOTIC PRODUCT 30161293616 No Longer Active Shaun Sy MD Active CIPRO 500 MG TABS 1 bid x 14 days start 5-01-04 CIPROFLOXACIN HCL 77657838085 No Longer Active Shaun Sy MD Active TRAMADOL HCL 50 MG TABS 1-2 tablets every 6 hours as needed for pain TRAMADOL HCL 90876774598 Active Tu Landeros MD Active HYDROCODONE-ACETAMINOPHEN 5-325 MG TABS 1 tab by mouth every 6 hours as needed for pain HYDROCODONE-ACETAMINOPHEN 73976488410 No Longer Active Tu Landeros MD Active OMEPRAZOLE 20 MG CPDR 1 po q a.m. OMEPRAZOLE 66416867929 Active Tu Landeros MD Active GABAPENTIN 100 MG CAPS 1 po bid GABAPENTIN 71778182656 No Longer Active Tu Landeros MD Active B-12 100 MCG TABS Take one by mouth daily CYANOCOBALAMIN 69658753067 No Longer Active Tu Landeros MD Active GABAPENTIN 100 MG CAPS by mouth twice a day GABAPENTIN 07150356877 Active Tu Landeros MD Active BACTRIM DS 800-160 MG TABS 1 bid x 14 day start 09-28-13 SULFAMETHOXAZOLE-TRIMETHOPRIM 21548138542 No Longer Active Tu Landeros MD Active SIMVASTATIN 40 MG TABS 1 tab daily at bedtime SIMVASTATIN 46493288616 Active Tu Landeros MD Active CARVEDILOL 12.5 MG TABS 1 po BID CARVEDILOL 13150571505 Active Tu Landeros MD Active SUPER B COMPLEX/VITAMIN C TABS 1 qd B COMPLEX-C 17183939922 Active JASPREET Peerz Active TRILIPIX 135 MG CPDR 1 q hs CHOLINE FENOFIBRATE 78341065899 Active Tu Landeros MD Active FENOFIBRATE 145 MG TABS 1 po qd FENOFIBRATE 61967639325 No Longer Active JASPREET Perez Active OMEPRAZOLE 20 MG TBEC 1 PO 30 MIN BEFORE 1ST MEAL OMEPRAZOLE 09984455813 No Longer Active JASPREET Perez Active SIMVASTATIN 40 MG TABS Take one by mouth daily SIMVASTATIN 31558722935 No Longer Active JASPREET Perez Active VENLAFAXINE HCL 37.5 MG TABS 1 bid VENLAFAXINE HCL 64511195110 Active Tu Landeros MD Active VENLAFAXINE HCL 75 MG TABS 1 po BID VENLAFAXINE HCL 72831505759 No Longer Active JASPREET Perez Active METFORMIN HCL 500 MG TB24 1.5 po BID METFORMIN HCL 40192501278 Active Tu Landeros MD Active CIPRO 500 MG TAB 1 tablet by mouth twice daily CIPROFLOXACIN HCL 15659369614 No Longer Active Tu Landeros MD Active VENLAFAXINE HCL 37.5 MG TABS 1 po BID VENLAFAXINE HCL 58747991990 No Longer Active Suzebianca Nicole RMA Active CVS STOOL SOFTENER 100 MG CAPS 1 tab daily DOCUSATE SODIUM 25658383724 Active Tu Landeros MD Active LAMISIL 250 MG TAB 1 po qd TERBINAFINE HCL 63560687699 No Longer Active Tu Landeros MD Active LORTAB 5 5-500 MG TABS 1/2 to 1 tablet by mouth every 4 hours as needed for pain HYDROCODONE-ACETAMINOPHEN 63406306813 No Longer Active Tu Landeros MD Active ENALAPRIL MALEATE 20 MG TABS 1.5 po qd ENALAPRIL MALEATE 13303125868 Active Tu Landeros MD Active HYDROCODONE-ACETAMINOPHEN 5-500 MG TABS take one po Q 4-6 hours prn HYDROCODONE-ACETAMINOPHEN 04812801434 No Longer Active Tu Landeros MD Active BACTRIM DS 800-160 MG TABS 1 po BID x 7 days SULFAMETHOXAZOLE-TRIMETHOPRIM 72787179105 No Longer Active Tu Landeros MD Active VENLAFAXINE HCL 75 MG TABS 1 po BID VENLAFAXINE HCL 52270325439 No Longer Active Elvira Cervantes MD PhD Active TRAMADOL HCL 50 MG TABS 1 tablets every 6 hours as needed for pain TRAMADOL HCL 13354006051 No Longer Active Tu Landeros MD Active ACCU-CHEK FASTCLIX LANCETS MISC Use to check bloodsugar three times daily as needed LANCETS 03727415280 No Longer Active Tu Landeros MD Active ACCU-CHEK KEYONA PLUS STRP Use for testing bloodsugars three times daily as needed GLUCOSE BLOOD 26906648412 No Longer Active Tu Landeros MD Active ACCU-CHEK KEYONA PLUS W/DEVICE KIT Use for testing bloodsugars three times daily as needed BLOOD GLUCOSE MONITORING SUPPL 68206280353 No Longer Active Tu Landeros MD Active SPIRONOLACTONE 25 MG TAB 0.5 tablet by mouth daily SPIRONOLACTONE 07222485015 No Longer Active Tu Landeros MD Active ALPRAZOLAM 0.5 MG TABS 1 tab every 6hrs as needed ALPRAZOLAM 59508631936 No Longer Active Tu Landeros MD Active AUGMENTIN 875-125 MG TAB 1 tab by mouth twice daily with food AMOXICILLIN-POT CLAVULANATE 87649002693 No Longer Active Tu Landeros MD Active PREDNISONE 20 MG TAB 2 tabs daily for 3 days, 1 tab daily for 3 days, 1/2 tab daily for 2 days PREDNISONE 63156918462 No Longer Active Tu Landeros MD Active XANAX 0.5 MG TABS 1 tablet every 6 hrs prn ALPRAZOLAM 81801253496 No Longer Active Tu Landeros MD Active PREDNISONE 20 MG TAB 2 tabs daily for 3 days, 1 tab daily for 3 days, 1/2 tab daily for 2 days PREDNISONE 29775166301 No Longer Active Tu Landeros MD Active TRIAMCINOLONE ACETONIDE 0.1 % OINT Apply to affected areas TID for up to 2 weeks TRIAMCINOLONE ACETONIDE 13710450282 No Longer Active Tu Landeros MD Active LORTAB 5 5-500 MG TABS 1/2 to 1 tablet by mouth every 4 hours as needed for pain HYDROCODONE-ACETAMINOPHEN 07985912143 No Longer Active Tu Landeros MD Active MULTIVITAMINS TABS Take one by mouth daily MULTIPLE VITAMIN 86104151342 No Longer Active Tu Landeros MD Active MELATONIN 5 MG TABS Take one by mouth daily MELATONIN 28922291109 No Longer Active Tu Landeros MD Active SOMA 350 MG TAB 1 po q 6 hours prn spasm CARISOPRODOL 17612945681 No Longer Active Tu Landeros MD Active MECLIZINE HCL 25 MG CHEW TAB 1 four times a day as needed for dizziness 08/05 MECLIZINE HCL 35149092540 No Longer Active Fab Morales DO Active ANGEL BREEZE 2 TEST DISK test tid prn GLUCOSE BLOOD 18243309253 No Longer Active Negra Scott RN Active DICLOFENAC SODIUM 50 MG TBEC 1 tablet by mouth three times a day as needed DICLOFENAC SODIUM 90380082123 Active Tu Landeros MD Active REGLAN 10 MG TAB 1 po TID PRN [place] METOCLOPRAMIDE HCL 45677056749 No Longer Active Tu Landeros MD Active METFORMIN HCL 500 MG TABS 1 PO BID METFORMIN HCL 29249658786 No Longer Active Tu Landeros MD Active AMBIEN 10 MG TAB 1 tab by mouth at bedtime as needed for sleep ZOLPIDEM TARTRATE 11332947002 No Longer Active Tu Landeros MD Active FLUOXETINE HCL 40 MG CAPS 1 po q day FLUOXETINE HCL 53856794516 No Longer Active Mayra Waterford Active FISH OIL 1000 MG CAPS Take one by mouth daily OMEGA-3 FATTY ACIDS 37215035744 Active Tu Landeros MD Active GLUCOSAMINE 500 MG TABS Take 2 tab po qd GLUCOSAMINE 51143061553 Active Tu Landeros MD Active TRILIPIX 135 MG CPDR 1 po qd CHOLINE FENOFIBRATE 72224459730 No Longer Active Tu Landeros MD Active ASPIRIN 81 MG CHEW TAB 1 tablet by mouth daily ASPIRIN 08806665357 Active Tu Landeros MD Active FUROSEMIDE 40 MG TAB 1 tablet by mouth daily FUROSEMIDE 89240632186 Active Tu Landeros MD Active REQUIP 2 MG TABS Take one tablet at bedtime prn ROPINIROLE HCL 32841832057 Active Tu Landeros MD Active KLOR-CON 10 10 MEQ CR-TABS TAKE 2 TABS DAILY POTASSIUM CHLORIDE 41188658021 Active Tu Landeros MD Active AMBIEN 10 MG TAB 1 tab by mouth at bedtime as needed for sleep AMBIEN 10 MG TAB 522459 ZOLPIDEM TARTRATE Inactive METFORMIN HCL 500 MG TABS 1 PO BID METFORMIN HCL 500 MG TABS 342642 METFORMIN HCL Inactive REGLAN 10 MG TAB 1 po TID PRN Nausea REGLAN 10 MG TAB 685840 METOCLOPRAMIDE HCL Inactive MECLIZINE HCL 25 MG CHEW TAB 1 four times a day as needed for dizziness 08/05 MECLIZINE HCL 25 MG CHEW TAB 208321 MECLIZINE HCL Inactive SOMA 350 MG TAB 1 po q 6 hours prn spasm SOMA 350 MG TAB 327920 CARISOPRODOL Inactive MELATONIN 5 MG TABS Take one by mouth daily MELATONIN 5 MG TABS 117148 MELATONIN Inactive MULTIVITAMINS TABS Take one by mouth daily MULTIVITAMINS TABS MULTIPLE VITAMIN Inactive LORTAB 5 5-500 MG TABS 1/2 to 1 tablet by mouth every 4 hours as needed for pain LORTAB 5 5-500 MG TABS HYDROCODONE- ACETAMINOPHEN Inactive XANAX 0.5 MG TABS 1 tablet every 6 hrs prn XANAX 0.5 MG TABS 087841 ALPRAZOLAM Inactive AUGMENTIN 875-125 MG TAB 1 tab by mouth twice daily with food AUGMENTIN 875-125 MG TAB 981629 AMOXICILLIN-POT CLAVULANATE Inactive ALPRAZOLAM 0.5 MG TABS 1 tab every 6hrs as needed ALPRAZOLAM 0.5 MG TABS 292595 ALPRAZOLAM Inactive SPIRONOLACTONE 25 MG TAB 0.5 tablet by mouth daily SPIRONOLACTONE 25 MG TAB 203102 SPIRONOLACTONE Inactive ACCU-CHEK KEYONA PLUS W/DEVICE KIT Use for testing bloodsugars three times daily as needed ACCU-CHEK KEYONA PLUS W/DEVICE KIT BLOOD GLUCOSE MONITORING SUPPL Inactive ACCU-CHEK KEYONA PLUS STRP Use for testing bloodsugars three times daily as needed ACCU-CHEK KEYONA PLUS STRP GLUCOSE BLOOD Inactive ACCU-CHEK FASTCLIX LANCETS MISC Use to check bloodsugar three times daily as needed ACCU-CHEK FASTCLIX LANCETS MISC 54758539979 LANCETS Inactive TRAMADOL HCL 50 MG TABS 1 tablets every 6 hours as needed for pain TRAMADOL HCL 50 MG TABS 990120 TRAMADOL HCL Inactive VENLAFAXINE HCL 75 MG TABS 1 po BID VENLAFAXINE HCL 75 MG TABS 931386 VENLAFAXINE HCL Inactive HYDROCODONE-ACETAMINOPHEN 5-500 MG TABS take one po Q 4-6 hours prn HYDROCODONE-ACETAMINOPHEN 5-500 MG TABS HYDROCODONE- ACETAMINOPHEN Inactive LORTAB 5 5-500 MG TABS 1/2 to 1 tablet by mouth every 4 hours as needed for pain LORTAB 5 5-500 MG TABS HYDROCODONE- ACETAMINOPHEN Inactive LAMISIL 250 MG TAB 1 po qd LAMISIL 250 MG TAB 389497 TERBINAFINE HCL Inactive VENLAFAXINE HCL 37.5 MG TABS 1 po BID VENLAFAXINE HCL 37.5 MG TABS 388461 VENLAFAXINE HCL Inactive CIPRO 500 MG TAB 1 tablet by mouth twice daily CIPRO 500 MG TAB 116975 CIPROFLOXACIN HCL Inactive VENLAFAXINE HCL 75 MG TABS 1 po BID VENLAFAXINE HCL 75 MG TABS 615572 VENLAFAXINE HCL Inactive SIMVASTATIN 40 MG TABS Take one by mouth daily SIMVASTATIN 40 MG TABS 887290 SIMVASTATIN Inactive OMEPRAZOLE 20 MG TBEC 1 PO 30 MIN BEFORE 1ST MEAL OMEPRAZOLE 20 MG TBEC 305361 OMEPRAZOLE Inactive FENOFIBRATE 145 MG TABS 1 po qd FENOFIBRATE 145 MG TABS 516627 FENOFIBRATE Inactive BACTRIM DS 800-160 MG TABS 1 bid x 14 day start 09-28-13 BACTRIM DS 800-160 MG TABS SULFAMETHOXAZOLE-TRIMETHOPRIM Inactive B-12 100 MCG TABS Take one by mouth daily B-12 100 MCG TABS CYANOCOBALAMIN Inactive GABAPENTIN 100 MG CAPS 1 po bid GABAPENTIN 100 MG CAPS 591366 GABAPENTIN Inactive HYDROCODONE-ACETAMINOPHEN 5-325 MG TABS 1 tab by mouth every 6 hours as needed for pain HYDROCODONE-ACETAMINOPHEN 5-325 MG TABS 106601 HYDROCODONE-ACETAMINOPHEN Inactive CIPRO 500 MG TABS 1 bid x 14 days start 09-28-13 CIPRO 500 MG TABS 168109 CIPROFLOXACIN HCL Inactive ALIGN 4 MG CAPS [...] 2 weeks TRIAMCINOLONE ACETONIDE 0.1 % OINT 7371096 TRIAMCINOLONE ACETONIDE Inactive PREDNISONE 20 MG TAB 2 tabs daily for 3 days, 1 tab daily for 3 days, 1/2 tab daily for 2 days PREDNISONE 20 MG TAB 163921 PREDNISONE Inactive PREDNISONE 20 MG TAB 2 tabs daily for 3 days, 1 tab daily for 3 days, 1/2 tab daily for 2 days PREDNISONE 20 MG TAB 955996 PREDNISONE Inactive BACTRIM DS 800-160 MG TABS 1 po BID x 7 days BACTRIM DS 800-160 MG TABS SULFAMETHOXAZOLE-TRIMETHOPRIM Inactive Immunizations Vaccine Administration Date Value Standard Description Seasonal influenza vaccine, injectable, containing preservative, for > 3 years old (Afluria, FluLaval, Fluzone, Fluvirin, Fluarix, Agriflu(>=18 yo)) Fluzone (>3 yrs.) [[id number]] Influenza, seasonal, injectable influenza immunization (Flu Vax) has been administered 02/22/2012 influenza virus vaccine, unspecified formulation Seasonal influenza vaccine, injectable, containing preservative, for > 3 years old (Afluria, FluLaval, Fluzone, Fluvirin, Fluarix, Agriflu(>=18 yo)) Fluzone (>3 yrs.) [[id number]] Influenza, seasonal, injectable Vital Signs Date Name [...] CBC - Chemistry sodium, serum 143 mmol/L 279-088 7072/03/10 potassium, serum 4.9 mmol/L 3.5-5.2 chloride, serum [...] HGBA1C - Chemistry sodium, serum 144 mmol/L 979-872 9787/04/16 potassium, serum 4.2 mmol/L 3.5-5.2 chloride, serum [...] 0.20 mg/dL 0.00-1.00 cholesterol, serum 133 mg/dL 569-132 6344/04/16 triglyceride, serum, fasting 142 mg/dL 30-200 HDL [...] mg/dL Encounters Code Encounter Date Provider Facility CPT-98782 Level 4 Est. Patient 14:38:57 CDT Tu Landeros MD [facility] CPT-03402 Level 4 Est. Patient 14:27:39 CIVIL ENGINEERING SPECIALIST Tu Landeros MD [facility] CPT-23424 Level 4 Est. Patient 09:45:25 CDT Tu Landeros MD [facility] CPT-94779 Level 4 Est. Patient 09:05:20 CIVIL ENGINEERING SPECIALIST Tu Landeros MD [facility] CPT-83739 Level 4 Est. Patient 14:09:06 CDT Tu Landeros MD [facility] CPT-11031 Level 3 Est. Patient 13:36:54 CDT Tu Landeros MD [facility] CPT-60605 Level 3 Est. Patient 08:59:14 CDT Tu Landeros MD [facility] CPT-64295 Level 3 Est. Patient 13:48:35 CDT Fab Morales DO [facility] CPT-15098 Level 4 Est. Patient 10:05:48 CDT Tu Landeros MD [facility] CPT-93305 Level 3 Est. Patient 13:38:42 CDT Marek BANKS [facility] CPT-35038 Level 5 Est. Patient 08:08:39 CDT Jerrica FRANCIS [facility] CPT-39088 Level 4 Est. Patient 14:23:38 CDT Tu Landeros MD [facility] CPT-70470 Level 3 Est. Patient 11:44:04 CDT Tu Landeros MD [facility] CPT-58303 Level 3 Est. Patient 11:03:20 CIVIL ENGINEERING SPECIALIST Tu Landeros MD [facility] CPT-51974 Level 3 Est. Patient 11:03:14 CIVIL ENGINEERING SPECIALIST Tu Landeros MD [facility] CPT-21871 Level 3 Est. Patient 12:42:49 CDT Tu Landeros MD [facility] CPT-65975 Level 3 Est. Patient 11:52:06 CDT Tu Landeros MD [facility] CPT-23565 Level 3 Est. Patient 13:58:11 CDT Tu Landeros MD [facility] CPT-63616 Level 3 Est. Patient 17:50:07 CDT Fab Morales DO [facility] CPT-44296 Level 3 Est. Patient 12:06:29 CDT Elvira Cervantes MD, PhD [facility] CPT-25243 Level 3 Est. Patient 15:50:32 CDT Tu Landeros MD [facility] CPT-35977 Level 4 Est. Patient 16:08:29 CDT Tu Landeros MD [facility] CPT-71639 Level 3 Est. Patient 16:04:19 CDT Tu Landeros MD [facility] CPT-01560 Level 3 Est. Patient 11:22:30 CIVIL ENGINEERING SPECIALIST Tu Landeros MD [facility] CPT-25526 Level 4 Est. Patient 16:24:02 CIVIL ENGINEERING SPECIALIST Tu Landeros MD [facility] CPT-51007 Level 3 Est. Patient 17:21:23 CIVIL ENGINEERING SPECIALIST Tu Landeros MD [facility] Procedures Code Procedure Name Date Entry Date Standard Description CPT-JTINJ Asp/Joint Injection 15:51:27 CIVIL ENGINEERING SPECIALIST CPT-OV Office Visit 15:52:02 CIVIL ENGINEERING SPECIALIST CPT-OV Office Visit 15:45:11 CDT CPT-000 Give Zostavax 14:09:06 CDT CPT-03853 Administration single or combination vaccine inc oral 15 :19:04 CDT CPT-30278 Zoster Vaccine (Zostavax) 15:19:04 CDT CPT-05312 Administration single or combination vaccine inc oral 20 :51:03 CDT CPT-01077 Influenza split virus > age 3 20:51:03 CDT CPT-59667 No Charge Offi Visit 14:52:03 CDT CPT-OV Office Visit 14:57:43 CDT CPT-OV Office Visit 15:22:32 CDT CPT-28615 Administration single or combination vaccine inc oral 11 :33:15 CDT CPT-88196 Influenza split virus > age 3 11:33:15 CDT
--- OUTSIDE RECORDS SUMMARY | 2018-04-25 13:55 | XMS REPORT | Clinical Summary ---
Author Author Admin, SACHI Organization [place] Address Unknown Phone Unavailable Allergies, Adverse Reactions, [...] po TID PRN Muscle Spasm CYCLOBENZAPRINE HCL 07422020534 Active Tu Landeros MD Active DICLOFENAC SODIUM 50 MG ORAL TBEC 1 po BID PRN Pain DICLOFENAC SODIUM 55466632908 Delores Landeros MD Active INVOKANA 100 MG ORAL TABS 1 po qd CANAGLIFLOZIN 74820546474 Active Tu Landeros MD Active GLIPIZIDE 5 MG ORAL TABS 1 po qd GLIPIZIDE 95521354150 No Longer Active Tu Landeros MD Active VENLAFAXINE HCL 75 MG ORAL TABS 1 po BID VENLAFAXINE HCL 52421670773 Active Tu Landeros MD Active GLIMEPIRIDE 1 MG ORAL TABS 1 po qd GLIMEPIRIDE 32075567376 No Longer Active uT Landeros MD Active TRUE METRIX BLOOD GLUCOSE TEST INVITR STRP Test blood sugar BID Dx: E11.9 GLUCOSE BLOOD 12079985990 Active Tu Landeros MD Active TRUE METRIX AIR GLUCOSE METER W/DEVICE KIT Test blood glucose BID Dx: E11.9 BLOOD GLUCOSE MONITORING SUPPL 83764504435 Active Tu Landeros MD Active TRUETEST TEST INVITR STRP test blood sugar twice daily. DX 250.0 GLUCOSE BLOOD 94762463907 No Longer Active Mirna Stanley LPN Active TRUEDRAW LANCING DEVICE MISC test blood sugar twice daily dx: 250.00 LANCET DEVICES 38353232209 No Longer Active Mirna Stanley LPN Active ENALAPRIL MALEATE 20 MG TABS 2 po qd ENALAPRIL MALEATE 30115372780 Active Lesli Kellogg APRN Active SUPER B COMPLEX/VITAMIN C TABS 1 qd B COMPLEX-C 05203104811 No Longer Active Tu Landeros MD Active ASPIRIN EC 81 MG ORAL TBEC 1 po qd ASPIRIN 60102947338 Active Tu Landeros MD Active GLUCOSAMINE 500 MG TABS 2 po qd GLUCOSAMINE Active Tu Landeros MD Active SIMVASTATIN 40 MG TABS 0.5 po qHS SIMVASTATIN 08448271757 Active Tu Landeros MD Active FISH OIL 1000 MG CAPS 1 po qd OMEGA-3 FATTY ACIDS 73682900968 Active Tu Landeros MD Active METFORMIN HCL 1000 MG TABS 1 po BID METFORMIN HCL 85880702880 Active Tu Landeros MD Active KLOR-CON 10 10 MEQ CR-TABS 2 po qd POTASSIUM CHLORIDE 25433828772 Active Tu Landeros MD Active FUROSEMIDE 40 MG TAB 1 po qd FUROSEMIDE 74318038558 Active Tu Landeros MD Active REQUIP 2 MG ORAL TABS 1 po qHS PRN Restless legs ROPINIROLE HCL 17145459937 Active Tu Landeros MD Active GABAPENTIN 100 MG CAPS 1 po BID GABAPENTIN 84247609576 Active Tu Landeros MD Active REQUIP 2 MG TABS Take one tablet at bedtime prn ROPINIROLE HCL 49416913175 No Longer Active Tu Landeros MD Active VENTOLIN HFA 108 (90 BASE) MCG/ACT AERS 1-2 puffs every 4 hours if needed for cough/congestion ALBUTEROL SULFATE 00812208228 No Longer Active Ambika Aden APRN Active ZITHROMAX 250 MG TAB 2 po today, then 1 po q days 2-5 AZITHROMYCIN 56961000448 No Longer Active Miranda Suresh APRN Active FLONASE 50 MCG/ACT SUSP 1 spray each nostril twice daily until bottle empty FLUTICASONE PROPIONATE 48227793905 No Longer Active Tu Landeros MD Active COLACE 100 MG CAP 1 po BID PRN Constipation DOCUSATE SODIUM 27751594136 Active Tu Landeros MD Active TRUERESULT BLOOD GLUCOSE W/DEVICE KIT test blood sugar twice daily dx 250.00 BLOOD GLUCOSE MONITORING SUPPL 22790513456 No Longer Active Tu Landeros MD Active TRUEDRAW LANCING DEVICE MISC Test twice a day dx 250.0 LANCET DEVICES 90005220222 No Longer Active Tu Landeros MD Active PREDNISONE 20 MG TAB 2 tablets once daily for 2 days, then 1 tablet once daily for 2 days PREDNISONE 60210856055 No Longer Active Tu Landeros MD Active DICLOFENAC SODIUM 50 MG TBEC 1 tablet by mouth three times a day as needed DICLOFENAC SODIUM 04681864849 No Longer Active Fab Morales DO Active EMBRACE BLOOD GLUCOSE TEST STRP test blood sugar twice daily DX 250.0 2014 GLUCOSE BLOOD 89608249255 No Longer Active Tu Landeros MD Active TRUETEST TEST STRP test blood sugar three times daily dx: 250.00 GLUCOSE BLOOD 57515142402 No Longer Active Suze Nicole RMA Active TRUERESULT BLOOD GLUCOSE W/DEVICE KIT use to test blood sugar tid dx: 250.00 BLOOD GLUCOSE MONITORING SUPPL 13975347539 No Longer Active Suze Nicole RMA Active ALIGN 4 MG CAPS 1 tid PROBIOTIC PRODUCT 26677756450 No Longer Active Shaun Sy MD Active CIPRO 500 MG TABS 1 bid x 14 days start 09-28-13 CIPROFLOXACIN HCL 84253811555 No Longer Active Shaun Sy MD Active TRAMADOL HCL 50 MG TABS 1-2 tablets every 6 hours as needed for pain TRAMADOL HCL 82618414277 Active Kofillina Valdez PATEL Active HYDROCODONE-ACETAMINOPHEN 5-325 MG TABS 1 tab by mouth every 6 hours as needed for pain HYDROCODONE-ACETAMINOPHEN 77066975757 No Longer Active Tu Landeros MD Active OMEPRAZOLE 20 MG CPDR 1 po q a.m. OMEPRAZOLE 08576660518 Active Lesli Kellogg APRN Active GABAPENTIN 100 MG CAPS 1 po bid GABAPENTIN 30988550637 No Longer Active Tu Landeros MD Active B-12 100 MCG TABS Take one by mouth daily CYANOCOBALAMIN 97977964374 No Longer Active Tu Landeros MD Active BACTRIM DS 800-160 MG TABS 1 bid x 14 day start 09-28-13 SULFAMETHOXAZOLE-TRIMETHOPRIM 77708801393 No Longer Active Tu Landeros MD Active CARVEDILOL 12.5 MG TABS 1 po BID CARVEDILOL 20859809795 Active Lesli Kellogg APRN Active TRILIPIX 135 MG CPDR 1 q hs CHOLINE FENOFIBRATE 11946549555 Active Tu Landeros MD Active FENOFIBRATE 145 MG TABS 1 po qd FENOFIBRATE 87497793527 No Longer Active JASPREET Perez Active OMEPRAZOLE 20 MG TBEC 1 PO 30 MIN BEFORE 1ST MEAL OMEPRAZOLE 02891133434 No Longer Active JASPREET Perez Active SIMVASTATIN 40 MG TABS Take one by mouth daily SIMVASTATIN 38650752577 No Longer Active Gustavo JASPREET Green Active VENLAFAXINE HCL 75 MG TABS 1 po BID VENLAFAXINE HCL 07171266563 No Longer Active JASPREET Perez Active CIPRO 500 MG TAB 1 tablet by mouth twice daily CIPROFLOXACIN HCL 54387062483 No Longer Active Tu Landeros MD Active VENLAFAXINE HCL 37.5 MG TABS 1 po BID VENLAFAXINE HCL 82063140304 No Longer Active Suzebianca Nicole [facility] Active LAMISIL 250 MG TAB 1 po qd TERBINAFINE HCL 32531836962 No Longer Active Tu Landeros MD Active LORTAB 5 5-500 MG TABS 1/2 to 1 tablet by mouth every 4 hours as needed for pain HYDROCODONE-ACETAMINOPHEN 88441608671 No Longer Active Tu Landeros MD Active HYDROCODONE-ACETAMINOPHEN 5-500 MG TABS take one po Q 4-6 hours prn HYDROCODONE-ACETAMINOPHEN 04029437502 No Longer Active Tu Landeros MD Active BACTRIM DS 800-160 MG TABS 1 po BID x 7 days SULFAMETHOXAZOLE-TRIMETHOPRIM 50982351584 No Longer Active Tu Landeros MD Active VENLAFAXINE HCL 75 MG TABS 1 po BID VENLAFAXINE HCL 80913398666 No Longer Active Elvira Cervantes MD PhD Active TRAMADOL HCL 50 MG TABS 1 tablets every 6 hours as needed for pain TRAMADOL HCL 04643030540 No Longer Active Tu Landeros MD Active ACCU-CHEK FASTCLIX LANCETS MISC Use to check bloodsugar three times daily as needed LANCETS 31939197330 No Longer Active Tu Landeros MD Active ACCU-CHEK KEYONA PLUS STRP Use for testing bloodsugars three times daily as needed GLUCOSE BLOOD 25791963743 No Longer Active Tu Landeros MD Active ACCU-CHEK KEYONA PLUS W/DEVICE KIT Use for testing bloodsugars three times daily as needed BLOOD GLUCOSE MONITORING SUPPL 33221684103 No Longer Active Tu Landeros MD Active SPIRONOLACTONE 25 MG TAB 0.5 tablet by mouth daily SPIRONOLACTONE 21080029841 No Longer Active Tu Landeros MD Active ALPRAZOLAM 0.5 MG TABS 1 tab every 6hrs as needed ALPRAZOLAM 86065232033 No Longer Active Tu Landeros MD Active AUGMENTIN 875-125 MG TAB 1 tab by mouth twice daily with food AMOXICILLIN-POT CLAVULANATE 83311185102 No Longer Active Tu Landeros MD Active PREDNISONE 20 MG TAB 2 tabs daily for 3 days, 1 tab daily for 3 days, 1/2 tab daily for 2 days PREDNISONE 21974544778 No Longer Active Tu Landeros MD Active XANAX 0.5 MG TABS 1 tablet every 6 hrs prn ALPRAZOLAM 07853613108 No Longer Active Tu Landeros MD Active PREDNISONE 20 MG TAB 2 tabs daily for 3 days, 1 tab daily for 3 days, 1/2 tab daily for 2 days PREDNISONE 06304455221 No Longer Active Tu Landeros MD Active TRIAMCINOLONE ACETONIDE 0.1 % OINT Apply to affected areas TID for up to 2 weeks TRIAMCINOLONE ACETONIDE 69484479830 No Longer Active Tu Landeros MD Active LORTAB 5 5-500 MG TABS 1/2 to 1 tablet by mouth every 4 hours as needed for pain HYDROCODONE-ACETAMINOPHEN 47531318484 No Longer Active Tu Landeros MD Active MULTIVITAMINS TABS Take one by mouth daily MULTIPLE VITAMIN 83638401836 No Longer Active Tu Landeros MD Active MELATONIN 5 MG TABS Take one by mouth daily MELATONIN 42172944275 No Longer Active Tu Landeros MD Active SOMA 350 MG TAB 1 po q 6 hours prn spasm CARISOPRODOL 04997105551 No Longer Active Tu Landeros MD Active MECLIZINE HCL 25 MG CHEW TAB 1 four times a day as needed for dizziness 08/05 MECLIZINE HCL 16814440656 No Longer Active Fab Morales DO Active ANGEL BREEZE 2 TEST DISK test tid prn GLUCOSE BLOOD 86878782639 No Longer Active Negra Scott RN Active REGLAN 10 MG TAB 1 po TID PRN Nausea METOCLOPRAMIDE HCL 83854441683 No Longer Active Tu Landeros MD Active METFORMIN HCL 500 MG TABS 1 PO BID METFORMIN HCL 43594711742 No Longer Active Tu Landeros MD Active AMBIEN 10 MG TAB 1 tab by mouth at bedtime as needed for sleep ZOLPIDEM TARTRATE 66040911841 No Longer Active Tu Landeros MD Active FLUOXETINE HCL 40 MG CAPS 1 po q day FLUOXETINE HCL 45865167556 No Longer Active Mayra Bowie Active TRILIPIX 135 MG CPDR 1 po qd CHOLINE FENOFIBRATE 86540332041 No Longer Active Tu Landeros MD Active AMBIEN 10 MG TAB 1 tab by mouth at bedtime as needed for sleep AMBIEN 10 MG TAB 977575 ZOLPIDEM TARTRATE Inactive METFORMIN HCL 500 MG TABS 1 PO BID METFORMIN HCL 500 MG TABS 691883 METFORMIN HCL Inactive REGLAN 10 MG TAB 1 po TID PRN Nausea REGLAN 10 MG TAB 707865 METOCLOPRAMIDE HCL Inactive MECLIZINE HCL 25 MG CHEW TAB 1 four times a day as needed for dizziness 08/05 MECLIZINE HCL 25 MG CHEW TAB 407112 MECLIZINE HCL Inactive SOMA 350 MG TAB 1 po q 6 hours prn spasm SOMA 350 MG TAB 148716 CARISOPRODOL Inactive MELATONIN 5 MG TABS Take one by mouth daily MELATONIN 5 MG TABS 644261 MELATONIN Inactive MULTIVITAMINS TABS Take one by mouth daily MULTIVITAMINS TABS MULTIPLE VITAMIN Inactive LORTAB 5 5-500 MG TABS 1/2 to 1 tablet by mouth every 4 hours as needed for pain LORTAB 5 5-500 MG TABS HYDROCODONE- ACETAMINOPHEN Inactive XANAX 0.5 MG TABS 1 tablet every 6 hrs prn XANAX 0.5 MG TABS 620926 ALPRAZOLAM Inactive AUGMENTIN 875-125 MG TAB 1 tab by mouth twice daily with food AUGMENTIN 875-125 MG TAB 655056 AMOXICILLIN-POT CLAVULANATE Inactive ALPRAZOLAM 0.5 MG TABS 1 tab every 6hrs as needed ALPRAZOLAM 0.5 MG TABS 015541 ALPRAZOLAM Inactive SPIRONOLACTONE 25 MG TAB 0.5 tablet by mouth daily SPIRONOLACTONE 25 MG TAB 085002 SPIRONOLACTONE Inactive ACCU-CHEK KEYONA PLUS W/DEVICE KIT Use for testing bloodsugars three times daily as needed ACCU-CHEK KEYONA PLUS W/DEVICE KIT BLOOD GLUCOSE MONITORING SUPPL Inactive ACCU-CHEK KEYONA PLUS STRP Use for testing bloodsugars three times daily as needed ACCU-CHEK KEYONA PLUS STRP GLUCOSE BLOOD Inactive ACCU-CHEK FASTCLIX LANCETS MISC Use to check bloodsugar three times daily as needed ACCU-CHEK FASTCLIX LANCETS [facility] 58880272687 LANCETS Inactive TRAMADOL HCL 50 MG TABS 1 tablets every 6 hours as needed for pain TRAMADOL HCL 50 MG TABS 393704 TRAMADOL HCL Inactive VENLAFAXINE HCL 75 MG TABS 1 po BID VENLAFAXINE HCL 75 MG TABS 945936 VENLAFAXINE HCL Inactive HYDROCODONE-ACETAMINOPHEN 5-500 MG TABS take one po Q 4-6 hours prn HYDROCODONE-ACETAMINOPHEN 5-500 MG TABS HYDROCODONE- ACETAMINOPHEN Inactive LORTAB 5 5-500 MG TABS 1/2 to 1 tablet by mouth every 4 hours as needed for pain LORTAB 5 5-500 MG TABS HYDROCODONE- ACETAMINOPHEN Inactive LAMISIL 250 MG TAB 1 po qd LAMISIL 250 MG TAB 314391 TERBINAFINE HCL Inactive VENLAFAXINE HCL 37.5 MG TABS 1 po BID VENLAFAXINE HCL 37.5 MG TABS 433386 VENLAFAXINE HCL Inactive CIPRO 500 MG TAB 1 tablet by mouth twice daily CIPRO 500 MG TAB 799255 CIPROFLOXACIN HCL Inactive VENLAFAXINE HCL 75 MG TABS 1 po BID VENLAFAXINE HCL 75 MG TABS 445307 VENLAFAXINE HCL Inactive SIMVASTATIN 40 MG TABS Take one by mouth daily SIMVASTATIN 40 MG TABS 246933 SIMVASTATIN Inactive OMEPRAZOLE 20 MG TBEC 1 PO 30 MIN BEFORE 1ST MEAL OMEPRAZOLE 20 MG TBEC 071864 OMEPRAZOLE Inactive FENOFIBRATE 145 MG TABS 1 po qd FENOFIBRATE 145 MG TABS 603473 FENOFIBRATE Inactive BACTRIM DS 800-160 MG TABS 1 bid x 14 day start 09-28-13 BACTRIM DS 800-160 MG TABS 688402 SULFAMETHOXAZOLE-TRIMETHOPRIM Inactive B-12 100 MCG TABS Take one by mouth daily B-12 100 MCG TABS CYANOCOBALAMIN Inactive GABAPENTIN 100 MG CAPS 1 po bid GABAPENTIN 100 MG CAPS 664241 GABAPENTIN Inactive HYDROCODONE-ACETAMINOPHEN 5-325 MG TABS 1 tab by mouth every 6 hours as needed for pain HYDROCODONE-ACETAMINOPHEN 5-325 MG TABS 209870 HYDROCODONE-ACETAMINOPHEN Inactive CIPRO 500 MG TABS 1 bid x 14 days start 09-28-13 CIPRO 500 MG TABS 581241 CIPROFLOXACIN HCL Inactive ALIGN 4 MG CAPS [...] as needed DICLOFENAC SODIUM 50 MG TBEC 952986 DICLOFENAC SODIUM Inactive PREDNISONE 20 MG TAB 2 tablets once daily for 2 days, then 1 tablet once daily for 2 days PREDNISONE 20 MG TAB 235566 PREDNISONE Inactive TRUEDRAW LANCING DEVICE MISC Test twice a day dx 250.0 TRUEDRAW LANCING DEVICE MISC LANCET DEVICES Inactive TRUERESULT BLOOD GLUCOSE W/DEVICE KIT test blood sugar twice daily dx 250.00 TRUERESULT BLOOD GLUCOSE W/DEVICE KIT BLOOD GLUCOSE MONITORING SUPPL Inactive FLONASE 50 MCG/ACT SUSP 1 spray each nostril twice daily until bottle empty FLONASE 50 MCG/ACT SUSP 9839875 FLUTICASONE PROPIONATE Inactive VENTOLIN HFA 108 (90 BASE) MCG/ACT AERS 1-2 puffs every 4 hours if needed for cough/congestion VENTOLIN HFA 108 (90 BASE) MCG/ACT AERS ALBUTEROL SULFATE Inactive REQUIP 2 MG TABS Take one tablet at bedtime prn REQUIP 2 MG TABS 522304 ROPINIROLE HCL Inactive SUPER B COMPLEX/VITAMIN C TABS 1 qd SUPER B COMPLEX/ VITAMIN C TABS 77627983238 B COMPLEX-C Inactive TRUEDRAW LANCING DEVICE MISC test blood sugar twice daily dx: 250.00 TRUEDRAW LANCING DEVICE MISC LANCET DEVICES Inactive TRUETEST TEST INVITR STRP test blood sugar twice daily. DX 250.0 TRUETEST TEST INVITR STRP GLUCOSE BLOOD Inactive TRIAMCINOLONE ACETONIDE 0.1 % OINT Apply to affected areas TID for up to 2 weeks TRIAMCINOLONE ACETONIDE 0.1 % OINT 0679877 TRIAMCINOLONE ACETONIDE Inactive PREDNISONE 20 MG TAB 2 tabs daily for 3 days, 1 tab daily for 3 days, 1/2 tab daily for 2 days PREDNISONE 20 MG TAB 710196 PREDNISONE Inactive PREDNISONE 20 MG TAB 2 tabs daily for 3 days, 1 tab daily for 3 days, 1/2 tab daily for 2 days PREDNISONE 20 MG TAB 390272 PREDNISONE Inactive BACTRIM DS 800-160 MG TABS 1 po BID x 7 days BACTRIM DS 800-160 MG TABS 617155 SULFAMETHOXAZOLE-TRIMETHOPRIM Inactive ZITHROMAX 250 MG TAB 2 po today, then 1 po q days 2-5 ZITHROMAX 250 MG TAB 0390184 AZITHROMYCIN Inactive Advance Directives Directive Description Start Date DISCUSSED WITH PATIENT -- NO DECISION MADE Immunizations Vaccine Administration Date Value Standard Description Seasonal influenza vaccine, injectable, containing preservative, for > 3 years old (Afluria, FluLaval, Fluzone, Fluvirin, Fluarix, Agriflu(>=18 yo)) Fluzone (>3 yrs.) [[id number]] Influenza, seasonal, injectable influenza immunization (Flu Vax) has been administered 02/22/2012 influenza virus vaccine, unspecified formulation Seasonal influenza vaccine, injectable, containing preservative, for > 3 years old (Afluria, FluLaval, Fluzone, Fluvirin, Fluarix, Agriflu(>=18 yo)) Fluzone (>3 yrs.) [[id number]] Influenza, seasonal, injectable Vital Signs Date Name [...] Magnesium - Chemistry sodium, serum 143 mmol/L 243-272 4390/01/10 carbon dioxide, venous blood 28.0 mmol/L 21.0-32.0 potassium, serum 4.5 mmol/L 3.5-5.2 chloride, serum 104 mmol/L 98-107 blood glucose 158 mg/dL 65-110 urea nitrogen, blood 23 mg/dL 7-18 creatinine, serum 1.06 mg/dL 0.55-1.30 alanine aminotransferase (SGPT), serum 42 U/L 12-78 aspartate aminotransferase (SGOT), serum 32 U/L 15-37 calcium, serum 9.3 mg/dL 8.5-10.1 bilirubin, serum, total 0.20 mg/dL 0.00-1.00 cholesterol, serum 177 mg/dL 414-739 1449/01/10 triglyceride, serum, fasting 320 mg/dL 30-200 HDL cholesterol, serum 46 mg/dL 32-96 LDL cholesterol, serum 67 mg/dL 0-130 Lab Report: COMPREHENSIVE METABOLIC PANEL, LIPID PANEL, HEMOGLOBIN A1c - Chemistry cholesterol, serum 135 mg/dL 056-643 5724/05/17 HDL cholesterol, serum 41 mg/dL > OR=46 triglyceride, serum, fasting 206 mg/dL <150 LDL cholesterol, serum 53 MG/DL (CALC) mg/dL <130 cholesterol/HDL ratio, serum 3.3 (calc) < OR=5.0 Lab Report: HGBA1C - Chemistry hemoglobin A1C, blood, as % of total hemoglobin 7.4 % 4.3-6.0 sodium, serum 140 mmol/L 771-415 5882/09/07 potassium, serum 4.3 mmol/L 3.5-5.2 chloride, serum [...] <30 Encounters Code Encounter Date Provider Facility CPT-19894 Level 3 Est. Patient 13:33:09 CDT Tu Landeros MD [facility] CPT-21129 Level 4 Est. Patient 14:29:21 CDT Tu Landeros MD [facility] CPT-29698 Level 4 Est. Patient 09:08:17 TEST BAKER Tu Landeros MD [facility] CPT-32115 Level 4 Est. Patient 14:40:19 CDT Tu Landeros MD [facility] CPT-97179 Level 4 Est. Patient 14:06:04 TEST BAKER Tu Landeros MD [facility] CPT-68730 Level 3 Est. Patient 14:05:18 TEST BAKER Tu Landeros MD [facility] CPT-54458 Level 3 Est. Patient 10:06:54 TEST BAKER Miranda Suresh APRN [facility] CPT-18039 Level 4 Est. Patient 13:50:18 TEST BAKER Tu Landeros MD [facility] CPT-65007 Level 3 Est. Patient 10:30:04 CDT Tu Landeros MD [facility] CPT-43381 Level 4 Est. Patient 11:03:38 CDT Tu Landeros MD [facility] CPT-30547 Level 3 Est. Patient 10:20:44 CDT Fab Morales DO [facility] CPT-74038 Level 4 Est. Patient 14:38:57 CDT Tu Landeros MD [facility] CPT-50972 Level 4 Est. Patient 14:27:39 TEST BAKER Tu Landeros MD [facility] CPT-09797 Level 4 Est. Patient 09:45:25 CDT Tu Landeros MD [facility] CPT-64453 Level 4 Est. Patient 09:05:20 TEST BAKER Tu Landeros MD [facility] CPT-20162 Level 4 Est. Patient 14:09:06 CDT Tu Landeros MD [facility] CPT-29330 Level 3 Est. Patient 13:36:54 CDT Tu Landeros MD [facility] CPT-88647 Level 3 Est. Patient 08:59:14 CDT Tu Landeros MD [facility] CPT-84338 Level 3 Est. Patient 13:48:35 CDT Fab Morales DO [facility] CPT-20609 Level 4 Est. Patient 10:05:48 CDT Tu Landeros MD [facility] CPT-16231 Level 3 Est. Patient 13:38:42 CDT Marek BANKS [facility] CPT-73521 Level 5 Est. Patient 08:08:39 CDT Jerrica FRANCIS [facility] CPT-32833 Level 4 Est. Patient 14:23:38 CDT Tu Landeros MD [facility] CPT-80296 Level 3 Est. Patient 11:44:04 CDT Tu Landeros MD [facility] CPT-42110 Level 3 Est. Patient 11:03:20 TEST BAKER Tu Landeros MD [facility] CPT-02989 Level 3 Est. Patient 11:03:14 TEST BAKER Tu Landeros MD [facility] CPT-49324 Level 3 Est. Patient 12:42:49 CDT Tu Landeros MD [facility] CPT-80274 Level 3 Est. Patient 11:52:06 CDT Tu Landeros MD [facility] CPT-56684 Level 3 Est. Patient 13:58:11 CDT Tu Landeros MD [facility] CPT-08662 Level 3 Est. Patient 17:50:07 CDT Fab Morales DO [facility] CPT-80016 Level 3 Est. Patient 12:06:29 CDT Elvira Cervantes MD [facility] CPT-26631 Level 3 Est. Patient 15:50:32 CDT Tu Landeros MD [facility] CPT-95361 Level 4 Est. Patient 16:08:29 CDT Tu Landeros MD [facility] CPT-98594 Level 3 Est. Patient 16:04:19 CDT Tu Landeros MD [facility] CPT-03238 Level 3 Est. Patient 11:22:30 TEST BAKER Tu Landeros MD [facility] CPT-37739 Level 4 Est. Patient 16:24:02 TEST BAKER Tu Landeros MD [facility] CPT-28479 Level 3 Est. Patient 17:21:23 TEST BAKER Tu Landeros MD [facility] Procedures Code Procedure Name Date Entry Date Standard Description CPT-32832 Shoulder, right, comp min 2V - XRAY USE ONLY 13:50:22 CDT CPT-G0009 Administration of Pneumococcal Vaccine 15:08:26 CDT CPT-28818 Prevnar 13 Intramuscular Suspension 15:08:26 CDT 10/08 CPT-G0439 [facility] Annual Wellness Exam 14:29:22 CDT CPT-60704 Venipuncture Draw Fee 13:15:35 CDT CPT-53360 Magnesium - LAB USE ONLY 11:14:20 TEST BAKER CPT-73863 Lipid - LAB USE ONLY 11:14:20 TEST BAKER CPT-49934 HGBA1C - LAB USE ONLY 11:14:20 TEST BAKER CPT-31563 CMP - LAB USE ONLY 11:14:19 TEST BAKER CPT-68957 CBC - LAB USE ONLY 11:14:19 TEST BAKER CPT-29619 Venipuncture Draw Fee 11:14:18 TEST BAKER CPT-12263 First Vx - Ix admin for Medicare patients 16:46:52 CDT CPT-36138 Fluzone Preservative Free Intramuscular Suspension 16:46 :51 CDT CPT-21459 CBC - LAB USE ONLY 17:14:46 CDT CPT-58251 HGBA1C - LAB USE ONLY 17:14:46 CDT CPT-46419 Venipuncture Draw Fee 17:14:46 CDT CPT-G0438 Initial Annual Wellness Exam 14:13:04 CDT CPT-84256 Breathing Tx 10:06:54 TEST BAKER CPT-23014 Postop F/U Visit 10:02:45 CDT CPT-LR Lesion Removal 09:02:56 CDT CPT-JTINJ Asp/Joint Injection 15:51:27 TEST BAKER CPT-OV Office Visit 15:52:02 TEST BAKER CPT-OV Office Visit 15:45:11 CDT CPT-000 Give Zostavax 14:09:06 CDT CPT-15287 Administration single or combination vaccine inc oral 15 :19:04 CDT CPT-38522 Zoster Vaccine (Zostavax) 15:19:04 CDT CPT-55689 Administration single or combination vaccine inc oral 20 :51:03 CDT CPT-90752 Influenza split virus > age 3 20:51:03 CDT CPT-09556 No Charge Offi Visit 14:52:03 CDT CPT-OV Office Visit 14:57:43 CDT CPT-OV Office Visit 15:22:32 CDT CPT-86107 Administration single or combination vaccine inc oral 11 :33:15 CDT CPT-95033 Influenza split virus > age 3 11:33:15 CDT
--- OUTSIDE RECORDS SUMMARY | 2018-04-25 13:57 | XMS REPORT | Clinical Summary ---
Author Author Admin, SACHI Organization [facility] Address Unknown Phone Unavailable Allergies, Adverse [...] DIABETES MELLITUS, TYPE II 250.00 Inactive Tu aLnderos MD Diabetes mellitus without mention of complication, [...] Benign paroxysmal positional vertigo HYPERTENSION 401.1 Inactive uT Landeros MD Benign essential hypertension Hypertension 401.9 Inactive Tu Landeros MD Unspecified essential hypertension Hypertension, benign essential 401.1 Active Tu Landeros MD Benign essential hypertension LEG CRAMPS, NOCTURNAL 729.82 Resolved Tu Landeros MD Cramp of limb FREQUENCY, URINARY 788.41 Correction Elvira Cervantes MD PhD Urinary frequency FEVER UNSPECIFIED 780.60 Resolved uT Landeros MD Fever, unspecified MUSCLE SPASM 728.85 [...] Active Tu Landeros MD Obesity , unspecified HEALTH SCREENING ICD-V70.0 Inactive Elvira Cervantes MD [...] CRAMPS, NOCTURNAL ICD-729.82 Inactive Tu Landeros MD PARESTHESIA ICD-782.0 Inactive Tu Landeros MD RASH AND OTHER NONSPECIFIC SKIN ERUPTION ICD-782.1 Inactive Tu Landeros MD FATIGUE ICD-780.79 Inactive Tu Landeros MD 2012 SCIATICA ICD-724.3 Inactive Tu Landeros MD 2012 SHOULDER PAIN, LEFT ICD-719.41 Inactive Tu Landeros MD KNEE PAIN ICD-719.46 Inactive Tu Landeros MD CARPAL TUNNEL SYNDROME ICD-354.0 Inactive Tu Landeros MD ARTHRITIS ICD-716.90 Inactive Tu Landeros MD LOCALIZED SUPERFICIAL SWELLING MASS OR LUMP ICD-782.2 Inactive Tu Landeros MD CONTUSION OF UNSPECIFIED SITE ICD-924.9 Inactive Tu Landeros MD ONYCHOMYCOSIS ICD-110.1 Inactive Tu Landeros MD Upper respiratory infection, viral ICD-465.9 Inactive Shaun Sy MD Open wound of other and unspecified parts of trunk, complicated ICD-879.7 Inactive Tu Landeros MD Knee pain, left, acute ICD-719.46 Inactive Tu Landeros MD Ear pain, bilateral ICD-388.70 Inactive Tu Landeros MD PRESSURE ULCER UNSPECIFIED SITE ICD-707.00 Inactive Tu Landeros MD Sebaceous cyst ICD-706.2 Inactive Tu Landeros MD Upper respiratory infection, viral ICD-465.9 Inactive Tu Landeros MD Sinusitis - acute ICD-461.9 Inactive Tu Landeros MD Leg pain, left ICD-729.5 Inactive Tu Landeros MD Open wound of abdominal wall, anterior, complicated ICD-879.3 Inactive Tu Landeros MD Hot flashes ICD-627.2 Inactive Tu Landeros MD Vision impairment, both eyes, impairment level not further specified ICD- 369.20 Inactive uT Landeros MD Medication List Medication Instructions Start Date Stop Date Generic Name NDC Status Provider Patient Instruction TRUE METRIX BLOOD GLUCOSE TEST INVITR STRP Test blood sugar BID Dx: E11.9 GLUCOSE BLOOD 31243645142 Active Tu Landeros MD Active TRUE METRIX AIR GLUCOSE METER W/DEVICE KIT Test blood glucose BID Dx: E11.9 BLOOD GLUCOSE MONITORING SUPPL 80450254111 Active Tu Landeros MD Active TRUETEST TEST INVITR STRP test blood sugar twice daily. DX 250.0 GLUCOSE BLOOD 67727903174 No Longer Active Mirna Stanley LPN Active TRUEDRAW LANCING DEVICE MISC test blood sugar twice daily dx: 250.00 LANCET DEVICES 89237874142 No Longer Active Mirna Stanley LPN Active ENALAPRIL MALEATE 20 MG TABS 2 po qd ENALAPRIL MALEATE 04687712056 Active Tu Landeros MD Active SUPER B COMPLEX/VITAMIN C TABS 1 qd B COMPLEX-C 29931514692 No Longer Active Tu Landeros MD Active ASPIRIN EC 81 MG ORAL TBEC 1 po qd ASPIRIN 63769168698 Active Tu Landeros MD Active GLUCOSAMINE 500 MG TABS 2 po qd GLUCOSAMINE Active Tu Landeros MD Active SIMVASTATIN 40 MG TABS 0.5 po qHS SIMVASTATIN 65878404249 Active Tu Landeros MD Active FISH OIL 1000 MG CAPS 1 po qd OMEGA-3 FATTY ACIDS 64786290956 Active Tu Landeros MD Active METFORMIN HCL 1000 MG TABS 1 po BID METFORMIN HCL 18092941836 Active Tu Landeros MD Active KLOR-CON 10 10 MEQ CR-TABS 2 po qd POTASSIUM CHLORIDE 85924278744 Active Tu Landeros MD Active FUROSEMIDE 40 MG TAB 1 po qd FUROSEMIDE 60193226352 Active Tu Landeros MD Active REQUIP 2 MG ORAL TABS 1 po qHS PRN Restless legs ROPINIROLE HCL 30939071373 Active Tu Landeros MD Active VENLAFAXINE HCL 37.5 MG TABS 1 po BID VENLAFAXINE HCL 72649222229 Active Tu Landeros MD Active GABAPENTIN 100 MG CAPS 1 po BID GABAPENTIN 08195635046 Active José Luis Becerra MD Active REQUIP 2 MG TABS Take one tablet at bedtime prn ROPINIROLE HCL 82053792883 No Longer Active Tu Landeros MD Active VENTOLIN HFA 108 (90 BASE) MCG/ACT AERS 1-2 puffs every 4 hours if needed for cough/congestion ALBUTEROL SULFATE 12499370410 No Longer Active Ambika Aden APRN Active ZITHROMAX 250 MG TAB 2 po today, then 1 po q days 2-5 AZITHROMYCIN 97670346599 No Longer Active Miranda Suresh APRN Active FLONASE 50 MCG/ACT SUSP 1 spray each nostril twice daily until bottle empty FLUTICASONE PROPIONATE 06466716697 No Longer Active Tu Landeros MD Active COLACE 100 MG CAP 1 po BID PRN Constipation DOCUSATE SODIUM 13129803294 Active Tu Landeros MD Active TRUERESULT BLOOD GLUCOSE W/DEVICE KIT test blood sugar twice daily dx 250.00 BLOOD GLUCOSE MONITORING SUPPL 50173352993 No Longer Active Tu Landeros MD Active TRUEDRAW LANCING DEVICE MISC Test twice a day dx 250.0 LANCET DEVICES 07293981265 No Longer Active Tu Landeros MD Active PREDNISONE 20 MG TAB 2 tablets once daily for 2 days, then 1 tablet once daily for 2 days PREDNISONE 53744985449 No Longer Active Tu Landeros MD Active DICLOFENAC SODIUM 50 MG TBEC 1 tablet by mouth three times a day as needed DICLOFENAC SODIUM 07372823631 No Longer Active Fab Morales DO Active EMBRACE BLOOD GLUCOSE TEST STRP test blood sugar twice daily DX 250.0 2014 GLUCOSE BLOOD 33473589187 No Longer Active Tu Landeros MD Active TRUETEST TEST STRP test blood sugar three times daily dx: 250.00 GLUCOSE BLOOD 70904133444 No Longer Active Suzebianca VOGEL Active TRUERESULT BLOOD GLUCOSE W/DEVICE KIT use to test blood sugar tid dx: 250.00 BLOOD GLUCOSE MONITORING SUPPL 50661557329 No Longer Active Suze VOGEL Active ALIGN 4 MG CAPS 1 tid PROBIOTIC PRODUCT 30294247455 No Longer Active Shaun Sy MD Active CIPRO 500 MG TABS 1 bid x 14 days start 09-28-13 CIPROFLOXACIN HCL 49981923975 No Longer Active Shaun Sy MD Active TRAMADOL HCL 50 MG TABS 1-2 tablets every 6 hours as needed for pain TRAMADOL HCL 03942540576 Active JASPREET Moffett Active HYDROCODONE-ACETAMINOPHEN 5-325 MG TABS 1 tab by mouth every 6 hours as needed for pain HYDROCODONE-ACETAMINOPHEN 60894359055 No Longer Active Tu Landeros MD Active OMEPRAZOLE 20 MG CPDR 1 po q a.m. OMEPRAZOLE 91234973920 Active Tu Landeros MD Active GABAPENTIN 100 MG CAPS 1 po bid GABAPENTIN 90265357777 No Longer Active Tu Landeros MD Active B-12 100 MCG TABS Take one by mouth daily CYANOCOBALAMIN 44215716547 No Longer Active Tu Landeros MD Active BACTRIM DS 800-160 MG TABS 1 bid x 14 day start 09-28-13 SULFAMETHOXAZOLE-TRIMETHOPRIM 06643914862 No Longer Active Tu Landeros MD Active CARVEDILOL 12.5 MG TABS 1 po BID CARVEDILOL 72397775009 Active Tu Landeros MD Active TRILIPIX 135 MG CPDR 1 q hs CHOLINE FENOFIBRATE 60263410054 Active Tu Landeros MD Active FENOFIBRATE 145 MG TABS 1 po qd FENOFIBRATE 27167592835 No Longer Active JASPREET Perez Active OMEPRAZOLE 20 MG TBEC 1 PO 30 MIN BEFORE 1ST MEAL OMEPRAZOLE 81334004572 No Longer Active JASPREET Perez Active SIMVASTATIN 40 MG TABS Take one by mouth daily SIMVASTATIN 30569414994 No Longer Active JASPREET Perez Active VENLAFAXINE HCL 75 MG TABS 1 po BID VENLAFAXINE HCL 60239876255 No Longer Active JASPREET Perez Active CIPRO 500 MG TAB 1 tablet by mouth twice daily CIPROFLOXACIN HCL 88710542307 No Longer Active Tu Landeros MD Active VENLAFAXINE HCL 37.5 MG TABS 1 po BID VENLAFAXINE HCL 07514567445 No Longer Active Suze NUNOA Active LAMISIL 250 MG TAB 1 po qd TERBINAFINE HCL 44618866053 No Longer Active Tu Landeros MD Active LORTAB 5 5-500 MG TABS 1/2 to 1 tablet by mouth every 4 hours as needed for pain HYDROCODONE-ACETAMINOPHEN 41498306760 No Longer Active Tu Landeros MD Active HYDROCODONE-ACETAMINOPHEN 5-500 MG TABS take one po Q 4-6 hours prn HYDROCODONE-ACETAMINOPHEN 56150267361 No Longer Active Tu Landeros MD Active BACTRIM DS 800-160 MG TABS 1 po BID x 7 days SULFAMETHOXAZOLE-TRIMETHOPRIM 33638522751 No Longer Active Tu Landeros MD Active VENLAFAXINE HCL 75 MG TABS 1 po BID VENLAFAXINE HCL 14586170175 No Longer Active Elvira Cervantes MD PhD Active TRAMADOL HCL 50 MG TABS 1 tablets every 6 hours as needed for pain TRAMADOL HCL 89097415423 No Longer Active Tu Landeros MD Active ACCU-CHEK FASTCLIX LANCETS MISC Use to check bloodsugar three times daily as needed LANCETS 04932554192 No Longer Active Tu Landeros MD Active ACCU-CHEK KEYONA PLUS STRP Use for testing bloodsugars three times daily as needed GLUCOSE BLOOD 41807516483 No Longer Active Tu Landeros MD Active ACCU-CHEK KEYONA PLUS W/DEVICE KIT Use for testing bloodsugars three times daily as needed BLOOD GLUCOSE MONITORING SUPPL 51315533201 No Longer Active Tu Landeros MD Active SPIRONOLACTONE 25 MG TAB 0.5 tablet by mouth daily SPIRONOLACTONE 50947446599 No Longer Active Tu Landeros MD Active ALPRAZOLAM 0.5 MG TABS 1 tab every 6hrs as needed ALPRAZOLAM 58973374356 No Longer Active Tu Landeros MD Active AUGMENTIN 875-125 MG TAB 1 tab by mouth twice daily with food AMOXICILLIN-POT CLAVULANATE 77948599468 No Longer Active Tu Landeros MD Active PREDNISONE 20 MG TAB 2 tabs daily for 3 days, 1 tab daily for 3 days, 1/2 tab daily for 2 days PREDNISONE 54822183634 No Longer Active Tu Landeros MD Active XANAX 0.5 MG TABS 1 tablet every 6 hrs prn ALPRAZOLAM 64490366352 No Longer Active Tu Landeros MD Active PREDNISONE 20 MG TAB 2 tabs daily for 3 days, 1 tab daily for 3 days, 1/2 tab daily for 2 days PREDNISONE 22261321525 No Longer Active Tu Landeros MD Active TRIAMCINOLONE ACETONIDE 0.1 % OINT Apply to affected areas TID for up to 2 weeks TRIAMCINOLONE ACETONIDE 31637259987 No Longer Active Tu Landeros MD Active LORTAB 5 5-500 MG TABS 1/2 to 1 tablet by mouth every 4 hours as needed for pain HYDROCODONE-ACETAMINOPHEN 70756444399 No Longer Active Tu Landeros MD Active MULTIVITAMINS TABS Take one by mouth daily MULTIPLE VITAMIN 62638667893 No Longer Active Tu Landeros MD Active MELATONIN 5 MG TABS Take one by mouth daily MELATONIN 73013368524 No Longer Active Tu Landeros MD Active SOMA 350 MG TAB 1 po q 6 hours prn spasm CARISOPRODOL 72762258170 No Longer Active Tu Landeros MD Active MECLIZINE HCL 25 MG CHEW TAB 1 four times a day as needed for dizziness 08/05 MECLIZINE HCL 63221229803 No Longer Active Fab Morales DO Active ANGEL BREEZE 2 TEST DISK test tid prn GLUCOSE BLOOD 54650437852 No Longer Active Ngera Scott RN Active REGLAN 10 MG TAB 1 po TID PRN [place]ausea METOCLOPRAMIDE HCL 72911776100 No Longer Active Tu Landeros MD Active METFORMIN HCL 500 MG TABS 1 PO BID METFORMIN HCL 82438424741 No Longer Active Tu Landeros MD Active AMBIEN 10 MG TAB 1 tab by mouth at bedtime as needed for sleep ZOLPIDEM TARTRATE 55247718032 No Longer Active Tu Landeros MD Active FLUOXETINE HCL 40 MG CAPS 1 po q day FLUOXETINE HCL 11028781579 No Longer Active Mayra Terry Active TRILIPIX 135 MG CPDR 1 po qd CHOLINE FENOFIBRATE 47412778383 No Longer Active Tu Landeros MD Active AMBIEN 10 MG TAB 1 tab by mouth at bedtime as needed for sleep AMBIEN 10 MG TAB 043847 ZOLPIDEM TARTRATE Inactive METFORMIN HCL 500 MG TABS 1 PO BID METFORMIN HCL 500 MG TABS 842010 METFORMIN HCL Inactive REGLAN 10 MG TAB 1 po TID PRN [place]ausea REGLAN 10 MG TAB 266535 METOCLOPRAMIDE HCL Inactive MECLIZINE HCL 25 MG CHEW TAB 1 four times a day as needed for dizziness 08/05 MECLIZINE HCL 25 MG CHEW TAB 450066 MECLIZINE HCL Inactive SOMA 350 MG TAB 1 po q 6 hours prn spasm SOMA 350 MG TAB 246495 CARISOPRODOL Inactive MELATONIN 5 MG TABS Take one by mouth daily MELATONIN 5 MG TABS 098753 MELATONIN Inactive MULTIVITAMINS TABS Take one by mouth daily MULTIVITAMINS TABS MULTIPLE VITAMIN Inactive LORTAB 5 5-500 MG TABS 1/2 to 1 tablet by mouth every 4 hours as needed for pain LORTAB 5 5-500 MG TABS HYDROCODONE- ACETAMINOPHEN Inactive XANAX 0.5 MG TABS 1 tablet every 6 hrs prn XANAX 0.5 MG TABS 897824 ALPRAZOLAM Inactive AUGMENTIN 875-125 MG TAB 1 tab by mouth twice daily with food AUGMENTIN 875-125 MG TAB 264780 AMOXICILLIN-POT CLAVULANATE Inactive ALPRAZOLAM 0.5 MG TABS 1 tab every 6hrs as needed ALPRAZOLAM 0.5 MG TABS 382472 ALPRAZOLAM Inactive SPIRONOLACTONE 25 MG TAB 0.5 tablet by mouth daily SPIRONOLACTONE 25 MG TAB 136178 SPIRONOLACTONE Inactive ACCU-CHEK KEYONA PLUS W/DEVICE KIT Use for testing bloodsugars three times daily as needed ACCU-CHEK KEYONA PLUS W/DEVICE KIT BLOOD GLUCOSE MONITORING SUPPL Inactive ACCU-CHEK KEYONA PLUS STRP Use for testing bloodsugars three times daily as needed ACCU-CHEK KEYONA PLUS STRP GLUCOSE BLOOD Inactive ACCU-CHEK FASTCLIX LANCETS MISC Use to check bloodsugar three times daily as needed ACCU-CHEK FASTCLIX LANCETS MISC 33298153327 LANCETS Inactive TRAMADOL HCL 50 MG TABS 1 tablets every 6 hours as needed for pain TRAMADOL HCL 50 MG TABS 833663 TRAMADOL HCL Inactive VENLAFAXINE HCL 75 MG TABS 1 po BID VENLAFAXINE HCL 75 MG TABS 078746 VENLAFAXINE HCL Inactive HYDROCODONE-ACETAMINOPHEN 5-500 MG TABS take one po Q 4-6 hours prn HYDROCODONE-ACETAMINOPHEN 5-500 MG TABS HYDROCODONE- ACETAMINOPHEN Inactive LORTAB 5 5-500 MG TABS 1/2 to 1 tablet by mouth every 4 hours as needed for pain LORTAB 5 5-500 MG TABS HYDROCODONE- ACETAMINOPHEN Inactive LAMISIL 250 MG TAB 1 po qd LAMISIL 250 MG TAB 926389 TERBINAFINE HCL Inactive VENLAFAXINE HCL 37.5 MG TABS 1 po BID VENLAFAXINE HCL 37.5 MG TABS 234973 VENLAFAXINE HCL Inactive CIPRO 500 MG TAB 1 tablet by mouth twice daily CIPRO 500 MG TAB 736736 CIPROFLOXACIN HCL Inactive VENLAFAXINE HCL 75 MG TABS 1 po BID VENLAFAXINE HCL 75 MG TABS 571419 VENLAFAXINE HCL Inactive SIMVASTATIN 40 MG TABS Take one by mouth daily SIMVASTATIN 40 MG TABS 024873 SIMVASTATIN Inactive OMEPRAZOLE 20 MG TBEC 1 PO 30 MIN BEFORE 1ST MEAL OMEPRAZOLE 20 MG TBEC 678866 OMEPRAZOLE Inactive FENOFIBRATE 145 MG TABS 1 po qd FENOFIBRATE 145 MG TABS 988031 FENOFIBRATE Inactive BACTRIM DS 800-160 MG TABS 1 bid x 14 day start 09-28-13 BACTRIM DS 800-160 MG TABS 067872 SULFAMETHOXAZOLE-TRIMETHOPRIM Inactive B-12 100 MCG TABS Take one by mouth daily B-12 100 MCG TABS CYANOCOBALAMIN Inactive GABAPENTIN 100 MG CAPS 1 po bid GABAPENTIN 100 MG CAPS 198301 GABAPENTIN Inactive HYDROCODONE-ACETAMINOPHEN 5-325 MG TABS 1 tab by mouth every 6 hours as needed for pain HYDROCODONE-ACETAMINOPHEN 5-325 MG TABS 641886 HYDROCODONE-ACETAMINOPHEN Inactive CIPRO 500 MG TABS 1 bid x 14 days start 09-28-13 CIPRO 500 MG TABS 578638 CIPROFLOXACIN HCL Inactive ALIGN 4 MG CAPS [...] day as needed DICLOFENAC SODIUM [address] [facility] 137857 DICLOFENAC SODIUM Inactive PREDNISONE 20 MG TAB 2 tablets once daily for 2 days, then 1 tablet once daily for 2 days PREDNISONE 20 MG TAB 373475 PREDNISONE Inactive TRUEDRAW LANCING DEVICE MISC Test [...] at bedtime prn REQUIP 2 MG TABS 742709 ROPINIROLE HCL Inactive SUPER B COMPLEX/VITAMIN C TABS 1 qd SUPER B COMPLEX/ VITAMIN C TABS 23837897181 B COMPLEX-C Inactive TRUEDRAW LANCING DEVICE MISC test blood sugar twice daily dx: 250.00 TRUEDRAW LANCING DEVICE MISC LANCET DEVICES Inactive TRUETEST TEST INVITR STRP test blood sugar twice daily. DX 250.0 TRUETEST TEST INVITR STRP GLUCOSE BLOOD Inactive TRIAMCINOLONE ACETONIDE 0.1 % OINT Apply to affected areas TID for up to 2 weeks TRIAMCINOLONE ACETONIDE 0.1 % OINT 1998424 TRIAMCINOLONE ACETONIDE Inactive PREDNISONE 20 MG TAB 2 tabs daily for 3 days, 1 tab daily for 3 days, 1/2 tab daily for 2 days PREDNISONE 20 MG TAB 638438 PREDNISONE Inactive PREDNISONE 20 MG TAB 2 tabs daily for 3 days, 1 tab daily for 3 days, 1/2 tab daily for 2 days PREDNISONE 20 MG TAB 565574 PREDNISONE Inactive BACTRIM DS 800-160 MG TABS 1 po BID x 7 days BACTRIM DS 800-160 MG TABS 143412 SULFAMETHOXAZOLE-TRIMETHOPRIM Inactive ZITHROMAX 250 MG TAB 2 po today, then 1 po q days 2-5 ZITHROMAX 250 MG TAB 3934002 AZITHROMYCIN Inactive Advance Directives Directive Description Start Date DISCUSSED WITH PATIENT -- NO DECISION MADE Immunizations Vaccine Administration Date Value Standard Description Seasonal influenza vaccine, injectable, containing preservative, for > 3 years old (Afluria, FluLaval, Fluzone, Fluvirin, Fluarix, Agriflu(>=18 yo)) Fluzone (>3 yrs.) [[id number]] Influenza, seasonal, injectable influenza immunization (Flu Vax) has been administered 02/22/2012 influenza virus vaccine, unspecified formulation Seasonal influenza vaccine, injectable, containing preservative, for > 3 years old (Afluria, FluLaval, Fluzone, Fluvirin, Fluarix, Agriflu(>=18 yo)) Fluzone (>3 yrs.) [[id number]] Influenza, seasonal, injectable Vital Signs Date Name [...] Metabolic Panel, Lipid Panel, Magnesium - Chemistry blood glucose 158 mg/dL 65-110 urea nitrogen, blood 23 mg/dL 7-18 creatinine, serum 1.06 mg/dL 0.55-1.30 alanine aminotransferase (SGPT), serum 42 U/L 12-78 aspartate aminotransferase (SGOT), serum 32 U/L 15-37 calcium, serum 9.3 mg/dL 8.5-10.1 bilirubin, serum, total 0.20 mg/dL 0.00-1.00 cholesterol, serum 177 mg/dL 422-874 5792/01/10 triglyceride, serum, fasting 320 mg/dL 30-200 HDL cholesterol, serum 46 mg/dL 32-96 LDL cholesterol, serum 67 mg/dL 0-130 sodium, serum 143 mmol/L 950-968 9417/01/10 carbon dioxide, venous blood 28.0 mmol/L 21.0-32.0 potassium, serum 4.5 mmol/L 3.5-5.2 chloride, serum 104 mmol/L 98-107 Lab Report: HGBA1C - Chemistry hemoglobin A1C, blood, as % of total hemoglobin 7.1 % 4.3-6.0 hemoglobin A1C, blood, as % of total hemoglobin 7.4 % 4.3-6.0 sodium, serum 140 mmol/L 242-486 4524/09/07 potassium, serum 4.3 mmol/L 3.5-5.2 chloride, serum [...] <30 Encounters Code Encounter Date Provider Facility CPT-83744 Level 4 Est. Patient 09:08:17 NON CDL DRIVER Tu Landeros MD [facility] CPT-64830 Level 4 Est. Patient 14:40:19 CDT Tu Landeros MD [facility] CPT-80798 Level 4 Est. Patient 14:06:04 NON CDL DRIVER Tu Landeros MD [facility] CPT-25009 Level 3 Est. Patient 14:05:18 NON CDL DRIVER Tu Landeros MD [facility] CPT-54626 Level 3 Est. Patient 10:06:54 NON CDL DRIVER Miranda Suresh APRN [facility] CPT-31235 Level 4 Est. Patient 13:50:18 NON CDL DRIVER Tu Landeros MD [facility] CPT-41634 Level 3 Est. Patient 10:30:04 CDT Tu Landeros MD [facility] CPT-64055 Level 4 Est. Patient 11:03:38 CDT Tu Landeros MD [facility] CPT-92183 Level 3 Est. Patient 10:20:44 CDT Fab Morales DO [facility] CPT-08980 Level 4 Est. Patient 14:38:57 CDT Tu Landeros MD [facility] CPT-88791 Level 4 Est. Patient 14:27:39 NON CDL DRIVER Tu Landeros MD [facility] CPT-86701 Level 4 Est. Patient 09:45:25 CDT Tu Landeros MD [facility] CPT-64738 Level 4 Est. Patient 09:05:20 NON CDL DRIVER Tu Landeros MD [facility] CPT-00228 Level 4 Est. Patient 14:09:06 CDT Tu Landeros MD [facility] CPT-11941 Level 3 Est. Patient 13:36:54 CDT Tu Landeros MD [facility] CPT-73933 Level 3 Est. Patient 08:59:14 CDT Tu Landeros MD [facility] CPT-19892 Level 3 Est. Patient 13:48:35 CDT Fab Morales DO [facility] CPT-55690 Level 4 Est. Patient 10:05:48 CDT Tu Landeros MD [facility] CPT-31067 Level 3 Est. Patient 13:38:42 CDT Marek BANKS [facility] CPT-89440 Level 5 Est. Patient 08:08:39 CDT Jerrica FRANCIS [facility] CPT-99885 Level 4 Est. Patient 14:23:38 CDT Tu Landeros MD [facility] CPT-78931 Level 3 Est. Patient 11:44:04 CDT Tu Landeros MD [facility] CPT-71578 Level 3 Est. Patient 11:03:20 NON CDL DRIVER Tu Landeros MD [facility] CPT-49087 Level 3 Est. Patient 11:03:14 NON CDL DRIVER Tu Landeros MD [facility] CPT-27968 Level 3 Est. Patient 12:42:49 CDT Tu Landeros MD [facility] CPT-36385 Level 3 Est. Patient 11:52:06 CDT Tu Landeros MD [facility] CPT-63985 Level 3 Est. Patient 13:58:11 CDT Tu Landeros MD [facility] CPT-33449 Level 3 Est. Patient 17:50:07 CDT Fab Morales DO [facility] CPT-29901 Level 3 Est. Patient 12:06:29 CDT Elvira Cervantes MD PhD [facility] CPT-50563 Level 3 Est. Patient 15:50:32 CDT Tu Landeros MD [facility] CPT-79588 Level 4 Est. Patient 16:08:29 CDT Tu Landeros MD [facility] CPT-79099 Level 3 Est. Patient 16:04:19 CDT Tu Landeros MD [facility] CPT-68799 Level 3 Est. Patient 11:22:30 NON CDL DRIVER Tu Landeros MD [facility] CPT-60913 Level 4 Est. Patient 16:24:02 NON CDL DRIVER Tu Landeros MD [facility] CPT-07708 Level 3 Est. Patient 17:21:23 NON CDL DRIVER Tu Landeros MD [facility] Procedures Code Procedure Name Date Entry Date Standard Description CPT-01666 Magnesium - LAB USE ONLY 11:14:20 NON CDL DRIVER CPT-47606 Lipid - LAB USE ONLY 11:14:20 NON CDL DRIVER CPT-83054 HGBA1C - LAB USE ONLY 11:14:20 NON CDL DRIVER CPT-99304 CMP - LAB USE ONLY 11:14:19 NON CDL DRIVER CPT-01042 CBC - LAB USE ONLY 11:14:19 NON CDL DRIVER CPT-84780 Venipuncture Draw Fee 11:14:18 NON CDL DRIVER CPT-88157 First Vx - Ix admin for Medicare patients 16:46:52 CDT CPT-30838 Fluzone Preservative Free Intramuscular Suspension 16:46 :51 CDT CPT-21062 CBC - LAB USE ONLY 17:14:46 CDT CPT-47946 HGBA1C - LAB USE ONLY 17:14:46 CDT CPT-06007 Venipuncture Draw Fee 17:14:46 CDT CPT-G0438 Initial Annual Wellness Exam 14:13:04 CDT CPT-95128 Breathing Tx 10:06:54 NON CDL DRIVER CPT-21283 Postop F/U Visit 10:02:45 CDT CPT-LR Lesion Removal 09:02:56 CDT CPT-JTINJ Asp/Joint Injection 15:51:27 NON CDL DRIVER CPT-OV Office Visit 15:52:02 NON CDL DRIVER CPT-OV Office Visit 15:45:11 CDT CPT-000 Give Zostavax 14:09:06 CDT CPT-93022 Administration single or combination vaccine inc oral 15 :19:04 CDT CPT-95585 Zoster Vaccine (Zostavax) 15:19:04 CDT CPT-38177 Administration single or combination vaccine inc oral 20 :51:03 CDT CPT-22988 Influenza split virus > age 3 20:51:03 CDT CPT-87341 No Charge Offi Visit 14:52:03 CDT CPT-OV Office Visit 14:57:43 CDT CPT-OV Office Visit 15:22:32 CDT CPT-43568 Administration single or combination vaccine inc oral 11 :33:15 CDT CPT-89319 Influenza split virus > age 3 11:33:15 CDT
--- OUTSIDE RECORDS SUMMARY | 2018-04-25 13:58 | XMS REPORT | Clinical Summary ---
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 Moderate or severe vision impairment, both eyes, [...] MD PRESSURE ULCER UNSPECIFIED SITE ICD-707.00 Tessa Lanedros MD LOCALIZED SUPERFICIAL SWELLING MASS OR LUMP [...] hours if needed for cough/congestion ALBUTEROL SULFATE 02539174155 No Longer Active Ambika Aden APRN Active ZITHROMAX 250 MG TAB 2 po today, then 1 po q days 2-5 AZITHROMYCIN 91617694772 No Longer Active Miranda Suresh APRN Active METFORMIN HCL 1000 MG TABS 1 tablet by mouth twice daily METFORMIN HCL 49199527772 Active uT Landeros MD Active FLONASE 50 MCG/ACT SUSP 1 spray each nostril twice daily until bottle empty FLUTICASONE PROPIONATE 07971014679 No Longer Active Tu Landeros MD Active COLACE 100 MG CAP 1 po BID PRN Constipation DOCUSATE SODIUM 05563490399 Active Tu Landeros MD Active SIMVASTATIN 40 MG TABS 0.5 tab daily at bedtime SIMVASTATIN 79008506330 Active Tu Landeros MD Active TRUERESULT BLOOD GLUCOSE W/DEVICE KIT test blood sugar twice daily dx 250.00 BLOOD GLUCOSE MONITORING SUPPL 88791215172 No Longer Active Tu Landeros MD Active TRUEDRAW LANCING DEVICE MISC Test twice a day dx 250.0 LANCET DEVICES 63601015787 No Longer Active Tu Landeros MD Active PREDNISONE 20 MG TAB 2 tablets once daily for 2 days, then 1 tablet once daily for 2 days PREDNISONE 72639398526 No Longer Active Tu Landeros MD Active DICLOFENAC SODIUM 50 MG TBEC 1 tablet by mouth three times a day as needed DICLOFENAC SODIUM 77862530576 No Longer Active Fab Morales DO Active TRUEDRAW LANCING DEVICE MISC test blood sugar twice daily dx: 250.00 LANCET DEVICES 76713731559 Active Tu Landeros MD Active TRUETEST TEST INVITR STRP test blood sugar twice daily. DX 250.0 GLUCOSE BLOOD 67147463436 Active Tu Landeros MD Active EMBRACE BLOOD GLUCOSE TEST STRP test blood sugar twice daily DX 250.0 2014 GLUCOSE BLOOD 28771493509 No Longer Active Tu Landeros MD Active TRUETEST TEST STRP test blood sugar three times daily dx: 250.00 GLUCOSE BLOOD 00895935301 No Longer Active Suzebianca VOGEL Active TRUERESULT BLOOD GLUCOSE W/DEVICE KIT use to test blood sugar tid dx: 250.00 BLOOD GLUCOSE MONITORING SUPPL 30512462190 No Longer Active Suze Corey RMA Active ALIGN 4 MG CAPS 1 tid PROBIOTIC PRODUCT 03470249509 No Longer Active Shaun Sy MD Active CIPRO 500 MG TABS 1 bid x 14 days start 09-28-13 CIPROFLOXACIN HCL 80850641515 No Longer Active Shaun Sy MD Active TRAMADOL HCL 50 MG TABS 1-2 tablets every 6 hours as needed for pain TRAMADOL HCL 33087276433 Active Tu Landeros MD Active HYDROCODONE-ACETAMINOPHEN 5-325 MG TABS 1 tab by mouth every 6 hours as needed for pain HYDROCODONE-ACETAMINOPHEN 74502184227 No Longer Active Tu Landeros MD Active OMEPRAZOLE 20 MG CPDR 1 po q a.m. OMEPRAZOLE 36787870922 Active Tu Landeros MD Active GABAPENTIN 100 MG CAPS 1 po bid GABAPENTIN 88322431728 No Longer Active Tu Landeros MD Active B-12 100 MCG TABS Take one by mouth daily CYANOCOBALAMIN 44744500469 No Longer Active Tu Landeros MD Active GABAPENTIN 100 MG CAPS by mouth twice a day GABAPENTIN 77331455280 Active Tiffanie Doyle Active BACTRIM DS 800-160 MG TABS 1 bid x 14 day start 8-14 SULFAMETHOXAZOLE-TRIMETHOPRIM 45799976602 No Longer Active Tu Landeros MD Active CARVEDILOL 12.5 MG TABS 1 po BID CARVEDILOL 23742407868 Active Tu Landeros MD Active SUPER B COMPLEX/VITAMIN C TABS 1 qd B COMPLEX-C 21194881499 Active JASPREET Perez Active TRILIPIX 135 MG CPDR 1 q hs CHOLINE FENOFIBRATE 76680984972 Active Tu Landeros MD Active FENOFIBRATE 145 MG TABS 1 po qd FENOFIBRATE 96922232297 No Longer Active JASPREET Perez Active OMEPRAZOLE 20 MG TBEC 1 PO 30 MIN BEFORE 1ST MEAL OMEPRAZOLE 46917712932 No Longer Active JASPREET Perez Active SIMVASTATIN 40 MG TABS Take one by mouth daily SIMVASTATIN 14518660761 No Longer Active JASPREET Perez Active VENLAFAXINE HCL 37.5 MG TABS 1 bid VENLAFAXINE HCL 80412811400 Active Tu Landeros MD Active VENLAFAXINE HCL 75 MG TABS 1 po BID VENLAFAXINE HCL 76385762863 No Longer Active JASPREET Perez Active CIPRO 500 MG TAB 1 tablet by mouth twice daily CIPROFLOXACIN HCL 31254503281 No Longer Active Tu Landeros MD Active VENLAFAXINE HCL 37.5 MG TABS 1 po BID VENLAFAXINE HCL 92863605980 No Longer Active Suze Corey RMA Active LAMISIL 250 MG TAB 1 po qd TERBINAFINE HCL 79985575392 No Longer Active Tu Landeros MD Active LORTAB 5 5-500 MG TABS 1/2 to 1 tablet by mouth every 4 hours as needed for pain HYDROCODONE-ACETAMINOPHEN 83893099654 No Longer Active Tu Landeros MD Active ENALAPRIL MALEATE 20 MG TABS 1.5 po qd ENALAPRIL MALEATE 91274654729 Active Tu Landeros MD Active HYDROCODONE-ACETAMINOPHEN 5-500 MG TABS take one po Q 4-6 hours prn HYDROCODONE-ACETAMINOPHEN 11613285610 No Longer Active Tu Landeros MD Active BACTRIM DS 800-160 MG TABS 1 po BID x 7 days SULFAMETHOXAZOLE-TRIMETHOPRIM 11862661433 No Longer Active Tu Landeros MD Active VENLAFAXINE HCL 75 MG TABS 1 po BID VENLAFAXINE HCL 55174348170 No Longer Active Elvira Cervantes MD PhD Active TRAMADOL HCL 50 MG TABS 1 tablets every 6 hours as needed for pain TRAMADOL HCL 51443125629 No Longer Active Tu Landeros MD Active ACCU-CHEK FASTCLIX LANCETS MISC Use to check bloodsugar three times daily as needed LANCETS 22341594038 No Longer Active Tu Landeros MD Active ACCU-CHEK KEYONA PLUS STRP Use for testing bloodsugars three times daily as needed GLUCOSE BLOOD 12914929551 No Longer Active Tu Landeros MD Active ACCU-CHEK KEYONA PLUS W/DEVICE KIT Use for testing bloodsugars three times daily as needed BLOOD GLUCOSE MONITORING SUPPL 73019385259 No Longer Active Tu Landeros MD Active SPIRONOLACTONE 25 MG TAB 0.5 tablet by mouth daily SPIRONOLACTONE 97177849183 No Longer Active Tu Landeros MD Active ALPRAZOLAM 0.5 MG TABS 1 tab every 6hrs as needed ALPRAZOLAM 80731691811 No Longer Active Tu Landeros MD Active AUGMENTIN 875-125 MG TAB 1 tab by mouth twice daily with food AMOXICILLIN-POT CLAVULANATE 27370560229 No Longer Active Tu Landeros MD Active PREDNISONE 20 MG TAB 2 tabs daily for 3 days, 1 tab daily for 3 days, 1/2 tab daily for 2 days PREDNISONE 31975206656 No Longer Active Tu Landeros MD Active XANAX 0.5 MG TABS 1 tablet every 6 hrs prn ALPRAZOLAM 14362634911 No Longer Active Tu Landeros MD Active PREDNISONE 20 MG TAB 2 tabs daily for 3 days, 1 tab daily for 3 days, 1/2 tab daily for 2 days PREDNISONE 86372076142 No Longer Active Tu Landeros MD Active TRIAMCINOLONE ACETONIDE 0.1 % OINT Apply to affected areas TID for up to 2 weeks TRIAMCINOLONE ACETONIDE 68507405260 No Longer Active Tu Landeros MD Active LORTAB 5 5-500 MG TABS 1/2 to 1 tablet by mouth every 4 hours as needed for pain HYDROCODONE-ACETAMINOPHEN 12166461460 No Longer Active Tu Landeros MD Active MULTIVITAMINS TABS Take one by mouth daily MULTIPLE VITAMIN 39420380031 No Longer Active Tu Landeros MD Active MELATONIN 5 MG TABS Take one by mouth daily MELATONIN 79455644196 No Longer Active Tu Landeros MD Active SOMA 350 MG TAB 1 po q 6 hours prn spasm CARISOPRODOL 52390152970 No Longer Active Tu Landeros MD Active MECLIZINE HCL 25 MG CHEW TAB 1 four times a day as needed for dizziness 08/05 MECLIZINE HCL 10847209109 No Longer Active Fab Morales DO Active ANGEL BREEZE 2 TEST DISK test tid prn GLUCOSE BLOOD 66149167352 No Longer Active Negra Scott RN Active REGLAN 10 MG TAB 1 po TID PRN Nausea METOCLOPRAMIDE HCL 23680690710 No Longer Active Tu Landeros MD Active METFORMIN HCL 500 MG TABS 1 PO BID METFORMIN HCL 81332269226 No Longer Active Tu Landeros MD Active AMBIEN 10 MG TAB 1 tab by mouth at bedtime as needed for sleep ZOLPIDEM TARTRATE 43675625042 No Longer Active Tu Landeros MD Active FLUOXETINE HCL 40 MG CAPS 1 po q day FLUOXETINE HCL 83283007863 No Longer Active Mayra Terry Active FISH OIL 1000 MG CAPS Take one by mouth daily OMEGA-3 FATTY ACIDS 89926241451 Active Tu Landeros MD Active GLUCOSAMINE 500 MG TABS Take 2 tab po qd GLUCOSAMINE 66782418204 Active Tu Landeros MD Active TRILIPIX 135 MG CPDR 1 po qd CHOLINE FENOFIBRATE 97545604509 No Longer Active Tu Landeros MD Active ASPIRIN 81 MG CHEW TAB 1 tablet by mouth daily ASPIRIN 57351910969 Active Tu Landeros MD Active FUROSEMIDE 40 MG TAB 1 tablet by mouth daily FUROSEMIDE 59590140399 Active Tu Landeros MD Active REQUIP 2 MG TABS Take one tablet at bedtime prn ROPINIROLE HCL 94638930885 Active Tu Landeros MD Active KLOR-CON 10 10 MEQ CR-TABS TAKE 2 TABS DAILY POTASSIUM CHLORIDE 93917815923 Active Tu Landeros MD Active AMBIEN 10 MG TAB 1 tab by mouth at bedtime as needed for sleep AMBIEN 10 MG TAB 167883 ZOLPIDEM TARTRATE Inactive METFORMIN HCL 500 MG TABS 1 PO BID METFORMIN HCL 500 MG TABS 712043 METFORMIN HCL Inactive REGLAN 10 MG TAB 1 po TID PRN Nausea REGLAN 10 MG TAB 068728 METOCLOPRAMIDE HCL Inactive MECLIZINE HCL 25 MG CHEW TAB 1 four times a day as needed for dizziness 08/05 MECLIZINE HCL 25 MG CHEW TAB 843218 MECLIZINE HCL Inactive SOMA 350 MG TAB 1 po q 6 hours prn spasm SOMA 350 MG TAB 188791 CARISOPRODOL Inactive MELATONIN 5 MG TABS Take one by mouth daily MELATONIN 5 MG TABS 060644 MELATONIN Inactive MULTIVITAMINS TABS Take one by mouth daily MULTIVITAMINS TABS MULTIPLE VITAMIN Inactive LORTAB 5 5-500 MG TABS 1/2 to 1 tablet by mouth every 4 hours as needed for pain LORTAB 5 5-500 MG TABS HYDROCODONE- ACETAMINOPHEN Inactive XANAX 0.5 MG TABS 1 tablet every 6 hrs prn XANAX 0.5 MG TABS 796688 ALPRAZOLAM Inactive AUGMENTIN 875-125 MG TAB 1 tab by mouth twice daily with food AUGMENTIN 875-125 MG TAB 824915 AMOXICILLIN-POT CLAVULANATE Inactive ALPRAZOLAM 0.5 MG TABS 1 tab every 6hrs as needed ALPRAZOLAM 0.5 MG TABS 056927 ALPRAZOLAM Inactive SPIRONOLACTONE 25 MG TAB 0.5 tablet by mouth daily SPIRONOLACTONE 25 MG TAB 790592 SPIRONOLACTONE Inactive ACCU-CHEK KEYONA PLUS W/DEVICE KIT Use for testing bloodsugars three times daily as needed ACCU-CHEK KEYONA PLUS W/DEVICE KIT BLOOD GLUCOSE MONITORING SUPPL Inactive ACCU-CHEK KEYONA PLUS STRP Use for testing bloodsugars three times daily as needed ACCU-CHEK KEYONA PLUS STRP GLUCOSE BLOOD Inactive ACCU-CHEK FASTCLIX LANCETS MISC Use to check bloodsugar three times daily as needed ACCU-CHEK FASTCLIX LANCETS MISC 35990225530 LANCETS Inactive TRAMADOL HCL 50 MG TABS 1 tablets every 6 hours as needed for pain TRAMADOL HCL 50 MG TABS 267055 TRAMADOL HCL Inactive VENLAFAXINE HCL 75 MG TABS 1 po BID VENLAFAXINE HCL 75 MG TABS 309508 VENLAFAXINE HCL Inactive HYDROCODONE-ACETAMINOPHEN 5-500 MG TABS take one po Q 4-6 hours prn HYDROCODONE-ACETAMINOPHEN 5-500 MG TABS HYDROCODONE- ACETAMINOPHEN Inactive LORTAB 5 5-500 MG TABS 1/2 to 1 tablet by mouth every 4 hours as needed for pain LORTAB 5 5-500 MG TABS HYDROCODONE- ACETAMINOPHEN Inactive LAMISIL 250 MG TAB 1 po qd LAMISIL 250 MG TAB 896853 TERBINAFINE HCL Inactive VENLAFAXINE HCL 37.5 MG TABS 1 po BID VENLAFAXINE HCL 37.5 MG TABS 859885 VENLAFAXINE HCL Inactive CIPRO 500 MG TAB 1 tablet by mouth twice daily CIPRO 500 MG TAB 857516 CIPROFLOXACIN HCL Inactive VENLAFAXINE HCL 75 MG TABS 1 po BID VENLAFAXINE HCL 75 MG TABS 734102 VENLAFAXINE HCL Inactive SIMVASTATIN 40 MG TABS Take one by mouth daily SIMVASTATIN 40 MG TABS 979206 SIMVASTATIN Inactive OMEPRAZOLE 20 MG TBEC 1 PO 30 MIN BEFORE 1ST MEAL OMEPRAZOLE 20 MG TBEC 535604 OMEPRAZOLE Inactive FENOFIBRATE 145 MG TABS 1 po qd FENOFIBRATE 145 MG TABS 052548 FENOFIBRATE Inactive BACTRIM DS 800-160 MG TABS 1 bid x 14 day start 09-28-13 BACTRIM DS 800-160 MG TABS 250373 SULFAMETHOXAZOLE-TRIMETHOPRIM Inactive B-12 100 MCG TABS Take one by mouth daily B-12 100 MCG TABS CYANOCOBALAMIN Inactive GABAPENTIN 100 MG CAPS 1 po bid GABAPENTIN 100 MG CAPS 011354 GABAPENTIN Inactive HYDROCODONE-ACETAMINOPHEN 5-325 MG TABS 1 tab by mouth every 6 hours as needed for pain HYDROCODONE-ACETAMINOPHEN 5-325 MG TABS 625579 HYDROCODONE-ACETAMINOPHEN Inactive CIPRO 500 MG TABS 1 bid x 14 days start 09-28-13 CIPRO 500 MG TABS 492319 CIPROFLOXACIN HCL Inactive ALIGN 4 MG CAPS [...] as needed DICLOFENAC SODIUM 50 MG TBEC 539184 DICLOFENAC SODIUM Inactive PREDNISONE 20 MG TAB 2 tablets once daily for 2 days, then 1 tablet once daily for 2 days PREDNISONE 20 MG TAB 641322 PREDNISONE Inactive TRUEDRAW LANCING DEVICE MISC Test [...] 2 weeks TRIAMCINOLONE ACETONIDE 0.1 % OINT 1235998 TRIAMCINOLONE ACETONIDE Inactive PREDNISONE 20 MG TAB 2 tabs daily for 3 days, 1 tab daily for 3 days, 1/2 tab daily for 2 days PREDNISONE 20 MG TAB 361676 PREDNISONE Inactive PREDNISONE 20 MG TAB 2 tabs daily for 3 days, 1 tab daily for 3 days, 1/2 tab daily for 2 days PREDNISONE 20 MG TAB 525898 PREDNISONE Inactive BACTRIM DS 800-160 MG TABS 1 po BID x 7 days BACTRIM DS 800-160 MG TABS 894725 SULFAMETHOXAZOLE-TRIMETHOPRIM Inactive ZITHROMAX 250 MG TAB 2 po today, then 1 po q days 2-5 ZITHROMAX 250 MG TAB 5287444 AZITHROMYCIN Inactive Advance Directives Directive Description Start Date DISCUSSED WITH PATIENT -- NO DECISION MADE Immunizations Vaccine Administration Date Value Standard Description Seasonal influenza vaccine, injectable, containing preservative, for > 3 years old (Afluria, FluLaval, Fluzone, Fluvirin, Fluarix, Agriflu(>=18 yo)) Fluzone (>3 yrs.) [[id number]] Influenza, seasonal, injectable influenza immunization (Flu Vax) has been administered 02/22/2012 influenza virus vaccine, unspecified formulation Seasonal influenza vaccine, injectable, containing preservative, for > 3 years old (Afluria, FluLaval, Fluzone, Fluvirin, Fluarix, Agriflu(>=18 yo)) Fluzone (>3 yrs.) [[id number]] Influenza, seasonal, injectable Vital Signs Date Name [...] mg/g mg/g{creat} 0-29 sodium, serum 142 mmol/L 181-534 4222/10/08 potassium, serum 4.5 mmol/L 3.5-5.2 chloride, serum [...] 7.4 % 4.3-6.0 sodium, serum 140 mmol/L 846-788 2312/09/07 potassium, serum 4.3 mmol/L 3.5-5.2 chloride, serum 104 mmol/L 98-107 carbon dioxide, venous blood 27.7 mmol/L 21.0-32.0 blood glucose 156 mg/dL 65-110 calcium, serum 9.3 mg/dL 8.5-10.1 urea nitrogen, blood 23 mg/dL - creatinine, serum 1.21 mg/dL 0.55-1.30 hemoglobin A1C, blood, as % of total hemoglobin 7.7 % 4.3-6.0 Lab Report: Lipid Panel, Comp. Metabolic Panel - Chemistry cholesterol, serum 124 mg/dL 629-944 2091/01/12 triglyceride, serum, fasting 135 mg/dL 30-200 HDL cholesterol, serum 41 mg/dL 32-96 LDL cholesterol, serum 56 mg/dL 0-130 sodium, serum 140 mmol/L 074-959 2095/01/12 carbon dioxide, venous blood 27.7 mmol/L 21.0-32.0 potassium, serum 4.5 mmol/L 3.5-5.2 chloride, serum 104 mmol/L 98-107 blood glucose 139 mg/dL 65-110 urea nitrogen, blood 16 mg/dL 7-18 alanine aminotransferase (SGPT), serum 32 U/L 12-78 aspartate aminotransferase (SGOT), serum 25 U/L 15-37 calcium, serum 9.1 mg/dL 8.5-10.1 bilirubin, serum, total 0.50 mg/dL 0.00-1.00 Encounters Code Encounter Date Provider Facility CPT-13343 Level 4 Est. Patient 14:06:04 FIRE PROTECTION FABRICATOR Tu Landeros MD [facility] CPT-42351 Level 3 Est. Patient 14:05:18 FIRE PROTECTION FABRICATOR Tu Landeros MD [facility] CPT-67692 Level 3 Est. Patient 10:06:54 FIRE PROTECTION FABRICATOR Miranda Suresh APRN [facility] CPT-65318 Level 4 Est. Patient 13:50:18 FIRE PROTECTION FABRICATOR Tu Landeros MD [facility] CPT-12328 Level 3 Est. Patient 10:30:04 CDT Tu Landeros MD [facility] CPT-21763 Level 4 Est. Patient 11:03:38 CDT Tu Landeros MD [facility] CPT-80831 Level 3 Est. Patient 10:20:44 CDT Fab Morales DO [facility] CPT-25709 Level 4 Est. Patient 14:38:57 CDT Tu Landeros MD [facility] CPT-25161 Level 4 Est. Patient 14:27:39 FIRE PROTECTION FABRICATOR Tu Landeros MD [facility] CPT-47133 Level 4 Est. Patient 09:45:25 CDT Tu Landeros MD [facility] CPT-87966 Level 4 Est. Patient 09:05:20 FIRE PROTECTION FABRICATOR Tu Landeros MD [facility] CPT-07676 Level 4 Est. Patient 14:09:06 CDT Tu Landeros MD [facility] CPT-09197 Level 3 Est. Patient 13:36:54 CDT Tu Landeros MD [facility] CPT-78665 Level 3 Est. Patient 08:59:14 CDT Tu Landeros MD [facility] CPT-19418 Level 3 Est. Patient 13:48:35 CDT Fab Morales DO [facility] CPT-30562 Level 4 Est. Patient 10:05:48 CDT Tu Landeros MD [facility] CPT-54334 Level 3 Est. Patient 13:38:42 CDT Marek BANKS [facility] CPT-04895 Level 5 Est. Patient 08:08:39 CDT Jerrica Dawsontay FRANCIS [facility] CPT-04435 Level 4 Est. Patient 14:23:38 CDT Tu Landeros MD [facility] CPT-21905 Level 3 Est. Patient 11:44:04 CDT Tu Landeros MD [facility] CPT-88900 Level 3 Est. Patient 11:03:20 FIRE PROTECTION FABRICATOR Tu Landeros MD [facility] CPT-01956 Level 3 Est. Patient 11:03:14 FIRE PROTECTION FABRICATOR Tu Landeros MD [facility] CPT-12141 Level 3 Est. Patient 12:42:49 CDT Tu Landeros MD [facility] CPT-07259 Level 3 Est. Patient 11:52:06 CDT Tu Landeros MD [facility] CPT-60675 Level 3 Est. Patient 13:58:11 CDT uT Landeros MD [facility] CPT-26904 Level 3 Est. Patient 17:50:07 CDT Fab Morales DO [facility] CPT-65456 Level 3 Est. Patient 12:06:29 CDT Elvira Cervantes MD PhD [facility] CPT-33709 Level 3 Est. Patient 15:50:32 CDT Tu Landeros MD [facility] CPT-61249 Level 4 Est. Patient 16:08:29 CDT Tu Landeros MD [facility] CPT-82020 Level 3 Est. Patient 16:04:19 CDT Tu Landeros MD [facility] CPT-32299 Level 3 Est. Patient 11:22:30 FIRE PROTECTION FABRICATOR Tu Landeros MD [facility] CPT-75503 Level 4 Est. Patient 16:24:02 FIRE PROTECTION FABRICATOR Tu Landeros MD [facility] CPT-04312 Level 3 Est. Patient 17:21:23 FIRE PROTECTION FABRICATOR Tu Landeros MD [facility] Procedures Code Procedure Name Date Entry Date Standard Description CPT-G0438 Initial Annual Wellness Exam 14:13:04 CDT CPT-11702 Breathing Tx 10:06:54 FIRE PROTECTION FABRICATOR CPT-17023 Postop F/U Visit 10:02:45 CDT CPT-LR Lesion Removal 09:02:56 CDT CPT-JTINJ Asp/Joint Injection 15:51:27 FIRE PROTECTION FABRICATOR CPT-OV Office Visit 15:52:02 FIRE PROTECTION FABRICATOR CPT-OV Office Visit 15:45:11 CDT CPT-000 Give Zostavax 14:09:06 CDT CPT-21316 Administration single or combination vaccine inc oral 15 :19:04 CDT CPT-74225 Zoster Vaccine (Zostavax) 15:19:04 CDT CPT-43318 Administration single or combination vaccine inc oral 20 :51:03 CDT CPT-03382 Influenza split virus > age 3 20:51:03 CDT CPT-49090 No Charge Offi Visit 14:52:03 CDT CPT-OV Office Visit 14:57:43 CDT CPT-OV Office Visit 15:22:32 CDT CPT-72605 Administration single or combination vaccine inc oral 11 :33:15 CDT CPT-84900 Influenza split virus > age 3 11:33:15 CDT
--- OUTSIDE RECORDS SUMMARY | 2018-04-25 13:59 | XMS REPORT | Clinical Summary ---
Author Author Admin, SACHI Clemons [facility] Address Unknown Phone Unavailable Allergies, Adverse [...] sugar twice daily dx: 250.00 LANCET DEVICES 59240915021 Active Tu Landeros MD Active TRUEDRAW LANCING DEVICE MISC Test twice a day dx 250.0 LANCET DEVICES 35231676979 Active Tu Landeros MD Active TRUERESULT BLOOD GLUCOSE W/DEVICE KIT test blood sugar twice daily dx 250.00 BLOOD GLUCOSE MONITORING SUPPL 89272906416 Active Tu Landeros MD Active TRUETEST TEST INVITR STRP test blood sugar twice daily. DX 250.0 GLUCOSE BLOOD 64367900996 Active Tu Landeros MD Active EMBRACE BLOOD GLUCOSE TEST STRP test blood sugar twice daily DX 250.0 2014 GLUCOSE BLOOD 88873359946 No Longer Active Tu Landeros MD Active TRUETEST TEST STRP test blood sugar three times daily dx: 250.00 GLUCOSE BLOOD 31424669176 No Longer Active Suzebianca VOGEL Active TRUERESULT BLOOD GLUCOSE W/DEVICE KIT use to test blood sugar tid dx: 250.00 BLOOD GLUCOSE MONITORING SUPPL 23240619408 No Longer Active Suze Corey RMA Active ALIGN 4 MG CAPS 1 tid PROBIOTIC PRODUCT 29241012311 No Longer Active Shaun Sy MD Active CIPRO 500 MG TABS 1 bid x 14 days start 5-01-04 CIPROFLOXACIN HCL 23071172981 No Longer Active Shaun Sy MD Active TRAMADOL HCL 50 MG TABS 1-2 tablets every 6 hours as needed for pain TRAMADOL HCL 73454077286 Active Tu Landeros MD Active HYDROCODONE-ACETAMINOPHEN 5-325 MG TABS 1 tab by mouth every 6 hours as needed for pain HYDROCODONE-ACETAMINOPHEN 31618966336 No Longer Active Tu Landeros MD Active OMEPRAZOLE 20 MG CPDR 1 po q a.m. OMEPRAZOLE 88187871163 Active Tu Landeros MD Active GABAPENTIN 100 MG CAPS 1 po bid GABAPENTIN 23119596480 No Longer Active Tu Landeros MD Active B-12 100 MCG TABS Take one by mouth daily CYANOCOBALAMIN 64250120627 No Longer Active Tu Landeros MD Active GABAPENTIN 100 MG CAPS by mouth twice a day GABAPENTIN 83193299902 Active Tu Landeros MD Active BACTRIM DS 800-160 MG TABS 1 bid x 14 day start 09-28-13 SULFAMETHOXAZOLE-TRIMETHOPRIM 68237673053 No Longer Active Tu Landeros MD Active SIMVASTATIN 40 MG TABS 1 tab daily at bedtime SIMVASTATIN 20024342666 Active Tu Landeros MD Active CARVEDILOL 12.5 MG TABS 1 po BID CARVEDILOL 60056751920 Active Tu Landeros MD Active SUPER B COMPLEX/VITAMIN C TABS 1 qd B COMPLEX-C 76348984450 Active JASPREET Perez Active TRILIPIX 135 MG CPDR 1 q hs CHOLINE FENOFIBRATE 97538165136 Active Tu Landeros MD Active FENOFIBRATE 145 MG TABS 1 po qd FENOFIBRATE 11281592054 No Longer Active JASPREET Perez Active OMEPRAZOLE 20 MG TBEC 1 PO 30 MIN BEFORE 1ST MEAL OMEPRAZOLE 38045706645 No Longer Active JASPREET Perez Active SIMVASTATIN 40 MG TABS Take one by mouth daily SIMVASTATIN 72159795384 No Longer Active JASPREET Perez Active VENLAFAXINE HCL 37.5 MG TABS 1 bid VENLAFAXINE HCL 60168488320 Active Tu Landeros MD Active VENLAFAXINE HCL 75 MG TABS 1 po BID VENLAFAXINE HCL 83250279971 No Longer Active JASPREET Perez Active METFORMIN HCL 500 MG TB24 1.5 po BID METFORMIN HCL 92705599703 Active Tu Landeros MD Active CIPRO 500 MG TAB 1 tablet by mouth twice daily CIPROFLOXACIN HCL 27641601530 No Longer Active Tu Landeros MD Active VENLAFAXINE HCL 37.5 MG TABS 1 po BID VENLAFAXINE HCL 41666803430 No Longer Active Suzebianca Nicole RMA Active CVS STOOL SOFTENER 100 MG CAPS 1 tab daily DOCUSATE SODIUM 61671028509 Active Tu Landeros MD Active LAMISIL 250 MG TAB 1 po qd TERBINAFINE HCL 43463161466 No Longer Active Tu Landeros MD Active LORTAB 5 5-500 MG TABS 1/2 to 1 tablet by mouth every 4 hours as needed for pain HYDROCODONE-ACETAMINOPHEN 74993594522 No Longer Active Tu Landeros MD Active ENALAPRIL MALEATE 20 MG TABS 1.5 po qd ENALAPRIL MALEATE 33686660724 Active Tu Landeros MD Active HYDROCODONE-ACETAMINOPHEN 5-500 MG TABS take one po Q 4-6 hours prn HYDROCODONE-ACETAMINOPHEN 18609334258 No Longer Active Tu Landeros MD Active BACTRIM DS 800-160 MG TABS 1 po BID x 7 days SULFAMETHOXAZOLE-TRIMETHOPRIM 23363216736 No Longer Active Tu Landeros MD Active VENLAFAXINE HCL 75 MG TABS 1 po BID VENLAFAXINE HCL 53875861082 No Longer Active Elvira Cervantes MD PhD Active TRAMADOL HCL 50 MG TABS 1 tablets every 6 hours as needed for pain TRAMADOL HCL 60060967739 No Longer Active Tu Landeros MD Active ACCU-CHEK FASTCLIX LANCETS MISC Use to check bloodsugar three times daily as needed LANCETS 64271839369 No Longer Active Tu Landeros MD Active ACCU-CHEK KEYONA PLUS STRP Use for testing bloodsugars three times daily as needed GLUCOSE BLOOD 17124888995 No Longer Active Tu Landeros MD Active ACCU-CHEK KEYONA PLUS W/DEVICE KIT Use for testing bloodsugars three times daily as needed BLOOD GLUCOSE MONITORING SUPPL 61885882840 No Longer Active Tu Landeros MD Active SPIRONOLACTONE 25 MG TAB 0.5 tablet by mouth daily SPIRONOLACTONE 65864878895 No Longer Active Tu Landeros MD Active ALPRAZOLAM 0.5 MG TABS 1 tab every 6hrs as needed ALPRAZOLAM 28528716246 No Longer Active Tu Landeros MD Active AUGMENTIN 875-125 MG TAB 1 tab by mouth twice daily with food AMOXICILLIN-POT CLAVULANATE 43187151951 No Longer Active Tu Landeros MD Active PREDNISONE 20 MG TAB 2 tabs daily for 3 days, 1 tab daily for 3 days, 1/2 tab daily for 2 days PREDNISONE 50516244305 No Longer Active Tu Landeros MD Active XANAX 0.5 MG TABS 1 tablet every 6 hrs prn ALPRAZOLAM 05550899804 No Longer Active Tu Landeros MD Active PREDNISONE 20 MG TAB 2 tabs daily for 3 days, 1 tab daily for 3 days, 1/2 tab daily for 2 days PREDNISONE 75879968635 No Longer Active Tu Landeros MD Active TRIAMCINOLONE ACETONIDE 0.1 % OINT Apply to affected areas TID for up to 2 weeks TRIAMCINOLONE ACETONIDE 56255693880 No Longer Active Tu Landeros MD Active LORTAB 5 5-500 MG TABS 1/2 to 1 tablet by mouth every 4 hours as needed for pain HYDROCODONE-ACETAMINOPHEN 58500831061 No Longer Active Tu Landeros MD Active MULTIVITAMINS TABS Take one by mouth daily MULTIPLE VITAMIN 04023048225 No Longer Active Tu Landeros MD Active MELATONIN 5 MG TABS Take one by mouth daily MELATONIN 09402583003 No Longer Active Tu Landeros MD Active SOMA 350 MG TAB 1 po q 6 hours prn spasm CARISOPRODOL 54096651082 No Longer Active Tu Landeros MD Active MECLIZINE HCL 25 MG CHEW TAB 1 four times a day as needed for dizziness 08/05 MECLIZINE HCL 22393430639 No Longer Active Fab Morales DO Active ANGEL BREEZE 2 TEST DISK test tid prn GLUCOSE BLOOD 88645234310 No Longer Active Negra Scott RN Active DICLOFENAC SODIUM 50 MG TBEC 1 tablet by mouth three times a day as needed DICLOFENAC SODIUM 03507390327 Active Tu Landeros MD Active REGLAN 10 MG TAB 1 po TID PRN [place] METOCLOPRAMIDE HCL 26674707043 No Longer Active Tu Landeros MD Active METFORMIN HCL 500 MG TABS 1 PO BID METFORMIN HCL 67804067184 No Longer Active Tu Landeros MD Active AMBIEN 10 MG TAB 1 tab by mouth at bedtime as needed for sleep ZOLPIDEM TARTRATE 58916571288 No Longer Active Tu Landeros MD Active FLUOXETINE HCL 40 MG CAPS 1 po q day FLUOXETINE HCL 14419727368 No Longer Active Mayra [place] Active FISH OIL 1000 MG CAPS Take one by mouth daily OMEGA-3 FATTY ACIDS 49354667035 Active Tu Landeros MD Active GLUCOSAMINE 500 MG TABS Take 2 tab po qd GLUCOSAMINE 30461936344 Active Tu Landeros MD Active TRILIPIX 135 MG CPDR 1 po qd CHOLINE FENOFIBRATE 73432731412 No Longer Active Tu Landeros MD Active ASPIRIN 81 MG CHEW TAB 1 tablet by mouth daily ASPIRIN 45418126131 Active Tu Landeros MD Active FUROSEMIDE 40 MG TAB 1 tablet by mouth daily FUROSEMIDE 89668416404 Active Tu Landeros MD Active REQUIP 2 MG TABS Take one tablet at bedtime prn ROPINIROLE HCL 88448638890 Active Tu Landeros MD Active KLOR-CON 10 10 MEQ CR-TABS TAKE 2 TABS DAILY POTASSIUM CHLORIDE 30139983175 Active Tu Landeros MD Active AMBIEN 10 MG TAB 1 tab by mouth at bedtime as needed for sleep AMBIEN 10 MG TAB 292500 ZOLPIDEM TARTRATE Inactive METFORMIN HCL 500 MG TABS 1 PO BID METFORMIN HCL 500 MG TABS 570270 METFORMIN HCL Inactive REGLAN 10 MG TAB 1 po TID PRN [place] REGLAN 10 MG TAB 094822 METOCLOPRAMIDE HCL Inactive MECLIZINE HCL 25 MG CHEW TAB 1 four times a day as needed for dizziness 08/05 MECLIZINE HCL 25 MG CHEW TAB 063623 MECLIZINE HCL Inactive SOMA 350 MG TAB 1 po q 6 hours prn spasm SOMA 350 MG TAB 319798 CARISOPRODOL Inactive MELATONIN 5 MG TABS Take one by mouth daily MELATONIN 5 MG TABS 449473 MELATONIN Inactive MULTIVITAMINS TABS Take one by mouth daily MULTIVITAMINS TABS MULTIPLE VITAMIN Inactive LORTAB 5 5-500 MG TABS 1/2 to 1 tablet by mouth every 4 hours as needed for pain LORTAB 5 5-500 MG TABS HYDROCODONE- ACETAMINOPHEN Inactive XANAX 0.5 MG TABS 1 tablet every 6 hrs prn XANAX 0.5 MG TABS 839369 ALPRAZOLAM Inactive AUGMENTIN 875-125 MG TAB 1 tab by mouth twice daily with food AUGMENTIN 875-125 MG TAB 467391 AMOXICILLIN-POT CLAVULANATE Inactive ALPRAZOLAM 0.5 MG TABS 1 tab every 6hrs as needed ALPRAZOLAM 0.5 MG TABS 055811 ALPRAZOLAM Inactive SPIRONOLACTONE 25 MG TAB 0.5 tablet by mouth daily SPIRONOLACTONE 25 MG TAB 392952 SPIRONOLACTONE Inactive ACCU-CHEK KEYONA PLUS W/DEVICE KIT Use for testing bloodsugars three times daily as needed ACCU-CHEK KEYONA PLUS W/DEVICE KIT BLOOD GLUCOSE MONITORING SUPPL Inactive ACCU-CHEK KEYONA PLUS STRP Use for testing bloodsugars three times daily as needed ACCU-CHEK KEYONA PLUS STRP GLUCOSE BLOOD Inactive ACCU-CHEK FASTCLIX LANCETS MISC Use to check bloodsugar three times daily as needed ACCU-CHEK FASTCLIX LANCETS MISC 13649749798 LANCETS Inactive TRAMADOL HCL 50 MG TABS 1 tablets every 6 hours as needed for pain TRAMADOL HCL 50 MG TABS 295047 TRAMADOL HCL Inactive VENLAFAXINE HCL 75 MG TABS 1 po BID VENLAFAXINE HCL 75 MG TABS 167327 VENLAFAXINE HCL Inactive HYDROCODONE-ACETAMINOPHEN 5-500 MG TABS take one po Q 4-6 hours prn HYDROCODONE-ACETAMINOPHEN 5-500 MG TABS HYDROCODONE- ACETAMINOPHEN Inactive LORTAB 5 5-500 MG TABS 1/2 to 1 tablet by mouth every 4 hours as needed for pain LORTAB 5 5-500 MG TABS HYDROCODONE- ACETAMINOPHEN Inactive LAMISIL 250 MG TAB 1 po qd LAMISIL 250 MG TAB 849020 TERBINAFINE HCL Inactive VENLAFAXINE HCL 37.5 MG TABS 1 po BID VENLAFAXINE HCL 37.5 MG TABS 665487 VENLAFAXINE HCL Inactive CIPRO 500 MG TAB 1 tablet by mouth twice daily CIPRO 500 MG TAB 289545 CIPROFLOXACIN HCL Inactive VENLAFAXINE HCL 75 MG TABS 1 po BID VENLAFAXINE HCL 75 MG TABS 739024 VENLAFAXINE HCL Inactive SIMVASTATIN 40 MG TABS Take one by mouth daily SIMVASTATIN 40 MG TABS 603500 SIMVASTATIN Inactive OMEPRAZOLE 20 MG TBEC 1 PO 30 MIN BEFORE 1ST MEAL OMEPRAZOLE 20 MG TBEC 264991 OMEPRAZOLE Inactive FENOFIBRATE 145 MG TABS 1 po qd FENOFIBRATE 145 MG TABS 594247 FENOFIBRATE Inactive BACTRIM DS 800-160 MG TABS 1 bid x 14 day start 09-28-13 BACTRIM DS 800-160 MG TABS SULFAMETHOXAZOLE-TRIMETHOPRIM Inactive B-12 100 MCG TABS Take one by mouth daily B-12 100 MCG TABS CYANOCOBALAMIN Inactive GABAPENTIN 100 MG CAPS 1 po bid GABAPENTIN 100 MG CAPS 867253 GABAPENTIN Inactive HYDROCODONE-ACETAMINOPHEN 5-325 MG TABS 1 tab by mouth every 6 hours as needed for pain HYDROCODONE-ACETAMINOPHEN 5-325 MG TABS 322131 HYDROCODONE-ACETAMINOPHEN Inactive CIPRO 500 MG TABS 1 bid x 14 days start 09-28-13 CIPRO 500 MG TABS 607646 CIPROFLOXACIN HCL Inactive ALIGN 4 MG CAPS [...] 2 weeks TRIAMCINOLONE ACETONIDE 0.1 % OINT 0825022 TRIAMCINOLONE ACETONIDE Inactive PREDNISONE 20 MG TAB 2 tabs daily for 3 days, 1 tab daily for 3 days, 1/2 tab daily for 2 days PREDNISONE 20 MG TAB 208782 PREDNISONE Inactive PREDNISONE 20 MG TAB 2 tabs daily for 3 days, 1 tab daily for 3 days, 1/2 tab daily for 2 days PREDNISONE 20 MG TAB 680793 PREDNISONE Inactive BACTRIM DS 800-160 MG TABS 1 po BID x 7 days BACTRIM DS 800-160 MG TABS SULFAMETHOXAZOLE-TRIMETHOPRIM Inactive Immunizations Vaccine Administration Date Value Standard Description Seasonal influenza vaccine, injectable, containing preservative, for > 3 years old (Afluria, FluLaval, Fluzone, Fluvirin, Fluarix, Agriflu(>=18 yo)) Fluzone (>3 yrs.) [[id number]] Influenza, seasonal, injectable influenza immunization (Flu Vax) has been administered 02/22/2012 influenza virus vaccine, unspecified formulation Seasonal influenza vaccine, injectable, containing preservative, for > 3 years old (Afluria, FluLaval, Fluzone, Fluvirin, Fluarix, Agriflu(>=18 yo)) Fluzone (>3 yrs.) [[id number]] Influenza, seasonal, injectable Vital Signs Date Name [...] CBC - Chemistry sodium, serum 143 mmol/L 391-583 5058/03/10 potassium, serum 4.9 mmol/L 3.5-5.2 chloride, serum [...] HGBA1C - Chemistry sodium, serum 144 mmol/L 945-152 9563/04/16 potassium, serum 4.2 mmol/L 3.5-5.2 chloride, serum [...] 0.20 mg/dL 0.00-1.00 cholesterol, serum 133 mg/dL 155-661 4090/04/16 triglyceride, serum, fasting 142 mg/dL 30-200 HDL [...] mg/dL Encounters Code Encounter Date Provider Facility CPT-53898 Level 4 Est. Patient 14:38:57 CDT Tu Landeros MD [facility] CPT-71178 Level 4 Est. Patient 14:27:39 QUALITY ANALYST Tu Landeros MD [facility] CPT-30886 Level 4 Est. Patient 09:45:25 CDT Tu Landeros MD [facility] CPT-86303 Level 4 Est. Patient 09:05:20 QUALITY ANALYST Tu Landeros MD [facility] CPT-80053 Level 4 Est. Patient 14:09:06 CDT Tu Landeros MD [facility] CPT-58102 Level 3 Est. Patient 13:36:54 CDT Tu Landeros MD [facility] CPT-94220 Level 3 Est. Patient 08:59:14 CDT Tu Landeros MD [facility] CPT-74774 Level 3 Est. Patient 13:48:35 CDT Fab Morales DO [facility] CPT-61790 Level 4 Est. Patient 10:05:48 CDT Tu Landeros MD [facility] CPT-25441 Level 3 Est. Patient 13:38:42 CDT Marek BANKS [facility] CPT-28073 Level 5 Est. Patient 08:08:39 CDT Jerrica FRANCIS [facility] CPT-42731 Level 4 Est. Patient 14:23:38 CDT Tu Landeros MD [facility] CPT-56522 Level 3 Est. Patient 11:44:04 CDT Tu Landeros MD [facility] CPT-61197 Level 3 Est. Patient 11:03:20 QUALITY ANALYST Tu Landeros MD [facility] CPT-02188 Level 3 Est. Patient 11:03:14 QUALITY ANALYST Tu Landeros MD [facility] CPT-86963 Level 3 Est. Patient 12:42:49 CDT Tu Landeros MD [facility] CPT-01456 Level 3 Est. Patient 11:52:06 CDT Tu Landeros MD [facility] CPT-48573 Level 3 Est. Patient 13:58:11 CDT Tu Landeros MD [facility] CPT-95723 Level 3 Est. Patient 17:50:07 CDT Fab Morales DO [facility] CPT-47460 Level 3 Est. Patient 12:06:29 CDT Elvira Cervantes MD, PhD [facility] CPT-63836 Level 3 Est. Patient 15:50:32 CDT Tu Landeros MD [facility] CPT-84516 Level 4 Est. Patient 16:08:29 CDT Tu Landeros MD [facility] CPT-99093 Level 3 Est. Patient 16:04:19 CDT Tu Landeros MD [facility] CPT-36333 Level 3 Est. Patient 11:22:30 QUALITY ANALYST Tu Landeros MD [facility] CPT-71194 Level 4 Est. Patient 16:24:02 QUALITY ANALYST Tu Landeros MD [facility] CPT-50493 Level 3 Est. Patient 17:21:23 QUALITY ANALYST Tu Landeros MD [facility] Procedures Code Procedure Name Date Entry Date Standard Description CPT-JTINJ Asp/Joint Injection 15:51:27 QUALITY ANALYST CPT-OV Office Visit 15:52:02 QUALITY ANALYST CPT-OV Office Visit 15:45:11 CDT CPT-000 Give Zostavax 14:09:06 CDT CPT-81999 Administration single or combination vaccine inc oral 15 :19:04 CDT CPT-34458 Zoster Vaccine (Zostavax) 15:19:04 CDT CPT-96938 Administration single or combination vaccine inc oral 20 :51:03 CDT CPT-14205 Influenza split virus > age 3 20:51:03 CDT CPT-32875 No Charge Offi Visit 14:52:03 CDT CPT-OV Office Visit 14:57:43 CDT CPT-OV Office Visit 15:22:32 CDT CPT-80538 Administration single or combination vaccine inc oral 11 :33:15 CDT CPT-28609 Influenza split virus > age 3 11:33:15 CDT
--- OUTSIDE RECORDS SUMMARY | 2018-04-25 14:00 | XMS REPORT | Clinical Summary ---
Author Author Admin, SACHI Clemons [facility] Address Unknown Phone Unavailable Allergies, Adverse Reactions, [...] and unspecified hyperlipidemia Hyperlipidemia 272.4 Active Tu Landeors MD Other and unspecified hyperlipidemia POSTMENOPAUSAL BLEEDING [...] Active Miranda Suresh APRN Acute sinusitis, unspecified POSTMENOPAUSAL BLEEDING ICD-627.1 Inactive Elvira Cervantes [...] hours if needed for cough/congestion ALBUTEROL SULFATE [id number] Active Miranda Suresh APRN Active ZITHROMAX 250 MG TAB 2 po today, then 1 po q days 2-5 AZITHROMYCIN 74092744410 No Longer Active Miranda Suresh APRN Active METFORMIN HCL 1000 MG TABS 1 tablet by mouth twice daily METFORMIN HCL 28012250485 Active Tu Landeros MD Active FLONASE 50 MCG/ACT SUSP 1 spray each nostril twice daily until bottle empty FLUTICASONE PROPIONATE 86138048314 No Longer Active Tu Landeros MD Active COLACE 100 MG CAP 1 po BID PRN Constipation DOCUSATE SODIUM 21253169253 Active Tu Landeros MD Active SIMVASTATIN 40 MG TABS 0.5 tab daily at bedtime SIMVASTATIN 24742831820 Active JASPREET Moffett Active TRUERESULT BLOOD GLUCOSE W/DEVICE KIT test blood sugar twice daily dx 250.00 BLOOD GLUCOSE MONITORING SUPPL 66904094295 No Longer Active Tu Landeros MD Active TRUEDRAW LANCING DEVICE MISC Test twice a day dx 250.0 LANCET DEVICES 09463036174 No Longer Active Tu Landeros MD Active PREDNISONE 20 MG TAB 2 tablets once daily for 2 days, then 1 tablet once daily for 2 days PREDNISONE 12662464278 No Longer Active Tu Landeros MD Active DICLOFENAC SODIUM 50 MG TBEC 1 tablet by mouth three times a day as needed DICLOFENAC SODIUM 77610534815 No Longer Active Fab Morales DO Active TRUEDRAW LANCING DEVICE MISC test blood sugar twice daily dx: 250.00 LANCET DEVICES 37232962198 Active Tu Landeros MD Active TRUETEST TEST INVITR STRP test blood sugar twice daily. DX 250.0 GLUCOSE BLOOD 37676264965 Active Tu Landeros MD Active EMBRACE BLOOD GLUCOSE TEST STRP test blood sugar twice daily DX 250.0 2014 GLUCOSE BLOOD 37593055038 No Longer Active Tu Landeros MD Active TRUETEST TEST STRP test blood sugar three times daily dx: 250.00 GLUCOSE BLOOD 15545925601 No Longer Active Suze Corey RMA Active TRUERESULT BLOOD GLUCOSE W/DEVICE KIT use to test blood sugar tid dx: 250.00 BLOOD GLUCOSE MONITORING SUPPL 96655569072 No Longer Active Suze Hardenehart RMA Active ALIGN 4 MG CAPS 1 tid PROBIOTIC PRODUCT 78662719307 No Longer Active Shaun Sy MD Active CIPRO 500 MG TABS 1 bid x 14 days start 09-28-13 CIPROFLOXACIN HCL 54169277374 No Longer Active Shaun Sy MD Active TRAMADOL HCL 50 MG TABS 1-2 tablets every 6 hours as needed for pain TRAMADOL HCL 41256434871 Active Simon Smith MD Active HYDROCODONE-ACETAMINOPHEN 5-325 MG TABS 1 tab by mouth every 6 hours as needed for pain HYDROCODONE-ACETAMINOPHEN 35027826996 No Longer Active Tu Landeros MD Active OMEPRAZOLE 20 MG CPDR 1 po q a.m. OMEPRAZOLE 59718469958 Active Tu Landeros MD Active GABAPENTIN 100 MG CAPS 1 po bid GABAPENTIN 95518064071 No Longer Active Tu Landeros MD Active B-12 100 MCG TABS Take one by mouth daily CYANOCOBALAMIN 25774885311 No Longer Active Tu Landeros MD Active GABAPENTIN 100 MG CAPS by mouth twice a day GABAPENTIN 48334869868 Active Tu Landeros MD Active BACTRIM DS 800-160 MG TABS 1 bid x 14 day start 09-28-13 SULFAMETHOXAZOLE-TRIMETHOPRIM 58601651634 No Longer Active Tu Landeros MD Active CARVEDILOL 12.5 MG TABS 1 po BID CARVEDILOL 94038933068 Active Tu Landeros MD Active SUPER B COMPLEX/VITAMIN C TABS 1 qd B COMPLEX-C 06011741545 Active JASPREET Perez Active TRILIPIX 135 MG CPDR 1 q hs CHOLINE FENOFIBRATE 53379431892 Active Tu Landeros MD Active FENOFIBRATE 145 MG TABS 1 po qd FENOFIBRATE 00955125586 No Longer Active JASPREET Perez Active OMEPRAZOLE 20 MG TBEC 1 PO 30 MIN BEFORE 1ST MEAL OMEPRAZOLE 68466446446 No Longer Active JASPREET Perez Active SIMVASTATIN 40 MG TABS Take one by mouth daily SIMVASTATIN 56678976803 No Longer Active JASPREET Perez Active VENLAFAXINE HCL 37.5 MG TABS 1 bid VENLAFAXINE HCL 63580517646 Active Tu Landeros MD Active VENLAFAXINE HCL 75 MG TABS 1 po BID VENLAFAXINE HCL 93797829330 No Longer Active JASPREET Perez Active CIPRO 500 MG TAB 1 tablet by mouth twice daily CIPROFLOXACIN HCL 53912618951 No Longer Active Tu Landeros MD Active VENLAFAXINE HCL 37.5 MG TABS 1 po BID VENLAFAXINE HCL 18071477814 No Longer Active Suze VOGEL Active LAMISIL 250 MG TAB 1 po qd TERBINAFINE HCL 52136861418 No Longer Active Tu Landeros MD Active LORTAB 5 5-500 MG TABS 1/2 to 1 tablet by mouth every 4 hours as needed for pain HYDROCODONE-ACETAMINOPHEN 96119838345 No Longer Active Tu Landeros MD Active ENALAPRIL MALEATE 20 MG TABS 1.5 po qd ENALAPRIL MALEATE 22123559656 Active Tu Landeros MD Active HYDROCODONE-ACETAMINOPHEN 5-500 MG TABS take one po Q 4-6 hours prn HYDROCODONE-ACETAMINOPHEN 79444733445 No Longer Active Tu Landeros MD Active BACTRIM DS 800-160 MG TABS 1 po BID x 7 days SULFAMETHOXAZOLE-TRIMETHOPRIM 78841609113 No Longer Active Tu Landeros MD Active VENLAFAXINE HCL 75 MG TABS 1 po BID VENLAFAXINE HCL 48972457326 No Longer Active Elvira Cervantes MD PhD Active TRAMADOL HCL 50 MG TABS 1 tablets every 6 hours as needed for pain TRAMADOL HCL 95234645260 No Longer Active Tu Landeros MD Active ACCU-CHEK FASTCLIX LANCETS MISC Use to check bloodsugar three times daily as needed LANCETS 43704301253 No Longer Active Tu Landeros MD Active ACCU-CHEK KEYONA PLUS STRP Use for testing bloodsugars three times daily as needed GLUCOSE BLOOD 01505346637 No Longer Active Tu Landeros MD Active ACCU-CHEK KEYONA PLUS W/DEVICE KIT Use for testing bloodsugars three times daily as needed BLOOD GLUCOSE MONITORING SUPPL 52084520007 No Longer Active Tu Landeros MD Active SPIRONOLACTONE 25 MG TAB 0.5 tablet by mouth daily SPIRONOLACTONE 31947333095 No Longer Active Tu Landeros MD Active ALPRAZOLAM 0.5 MG TABS 1 tab every 6hrs as needed ALPRAZOLAM 15480529691 No Longer Active Tu Landeros MD Active AUGMENTIN 875-125 MG TAB 1 tab by mouth twice daily with food AMOXICILLIN-POT CLAVULANATE 54216831464 No Longer Active Tu Landeros MD Active PREDNISONE 20 MG TAB 2 tabs daily for 3 days, 1 tab daily for 3 days, 1/2 tab daily for 2 days PREDNISONE 99361532626 No Longer Active Tu Landeros MD Active XANAX 0.5 MG TABS 1 tablet every 6 hrs prn ALPRAZOLAM 43818809995 No Longer Active Tu Landeros MD Active PREDNISONE 20 MG TAB 2 tabs daily for 3 days, 1 tab daily for 3 days, 1/2 tab daily for 2 days PREDNISONE 48600167333 No Longer Active Tu Landeros MD Active TRIAMCINOLONE ACETONIDE 0.1 % OINT Apply to affected areas TID for up to 2 weeks TRIAMCINOLONE ACETONIDE 95705738570 No Longer Active Tu Landeros MD Active LORTAB 5 5-500 MG TABS 1/2 to 1 tablet by mouth every 4 hours as needed for pain HYDROCODONE-ACETAMINOPHEN 55501610435 No Longer Active Tu Landeros MD Active MULTIVITAMINS TABS Take one by mouth daily MULTIPLE VITAMIN 39135341731 No Longer Active Tu Landeros MD Active MELATONIN 5 MG TABS Take one by mouth daily MELATONIN 70810015676 No Longer Active Tu Landeros MD Active SOMA 350 MG TAB 1 po q 6 hours prn spasm CARISOPRODOL 21614545502 No Longer Active Tu Landeros MD Active MECLIZINE HCL 25 MG CHEW TAB 1 four times a day as needed for dizziness 08/05 MECLIZINE HCL 81665948567 No Longer Active Fab Morales DO Active ANGLE BREEZE 2 TEST DISK test tid prn GLUCOSE BLOOD 40880367238 No Longer Active Negra Scott RN Active REGLAN 10 MG TAB 1 po TID PRN Nausea METOCLOPRAMIDE HCL 03436802731 No Longer Active Tu Landeros MD Active METFORMIN HCL 500 MG TABS 1 PO BID METFORMIN HCL 53297020422 No Longer Active Tu Landeros MD Active AMBIEN 10 MG TAB 1 tab by mouth at bedtime as needed for sleep ZOLPIDEM TARTRATE 46801085565 No Longer Active Tu Landeros MD Active FLUOXETINE HCL 40 MG CAPS 1 po q day FLUOXETINE HCL 57662102400 No Longer Active Mayra Terry Active FISH OIL 1000 MG CAPS Take one by mouth daily OMEGA-3 FATTY ACIDS 58465005576 Active Tu Landeros MD Active GLUCOSAMINE 500 MG TABS Take 2 tab po qd GLUCOSAMINE 42362965153 Active Tu Landeros MD Active TRILIPIX 135 MG CPDR 1 po qd CHOLINE FENOFIBRATE 56819901115 No Longer Active Tu Landeros MD Active ASPIRIN 81 MG CHEW TAB 1 tablet by mouth daily ASPIRIN 20886367323 Active Tu Landeros MD Active FUROSEMIDE 40 MG TAB 1 tablet by mouth daily FUROSEMIDE 22255137302 Active Tu Landeros MD Active REQUIP 2 MG TABS Take one tablet at bedtime prn ROPINIROLE HCL 56399035003 Active Tu Landeros MD Active KLOR-CON 10 10 MEQ CR-TABS TAKE 2 TABS DAILY POTASSIUM CHLORIDE 28481596392 Active Tu Landeros MD Active AMBIEN 10 MG TAB 1 tab by mouth at bedtime as needed for sleep AMBIEN 10 MG TAB 190824 ZOLPIDEM TARTRATE Inactive METFORMIN HCL 500 MG TABS 1 PO BID METFORMIN HCL 500 MG TABS 102647 METFORMIN HCL Inactive REGLAN 10 MG TAB 1 po TID PRN Nausea REGLAN 10 MG TAB 592532 METOCLOPRAMIDE HCL Inactive MECLIZINE HCL 25 MG CHEW TAB 1 four times a day as needed for dizziness 08/05 MECLIZINE HCL 25 MG CHEW TAB 319097 MECLIZINE HCL Inactive SOMA 350 MG TAB 1 po q 6 hours prn spasm SOMA 350 MG TAB 350701 CARISOPRODOL Inactive MELATONIN 5 MG TABS Take one by mouth daily MELATONIN 5 MG TABS 817873 MELATONIN Inactive MULTIVITAMINS TABS Take one by mouth daily MULTIVITAMINS TABS MULTIPLE VITAMIN Inactive LORTAB 5 5-500 MG TABS 1/2 to 1 tablet by mouth every 4 hours as needed for pain LORTAB 5 5-500 MG TABS HYDROCODONE- ACETAMINOPHEN Inactive XANAX 0.5 MG TABS 1 tablet every 6 hrs prn XANAX 0.5 MG TABS 157029 ALPRAZOLAM Inactive AUGMENTIN 875-125 MG TAB 1 tab by mouth twice daily with food AUGMENTIN 875-125 MG TAB 604848 AMOXICILLIN-POT CLAVULANATE Inactive ALPRAZOLAM 0.5 MG TABS 1 tab every 6hrs as needed ALPRAZOLAM 0.5 MG TABS 401700 ALPRAZOLAM Inactive SPIRONOLACTONE 25 MG TAB 0.5 tablet by mouth daily SPIRONOLACTONE 25 MG TAB 632826 SPIRONOLACTONE Inactive ACCU-CHEK KEYONA PLUS W/DEVICE KIT Use for testing bloodsugars three times daily as needed ACCU-CHEK KEYONA PLUS W/DEVICE KIT BLOOD GLUCOSE MONITORING SUPPL Inactive ACCU-CHEK KEYONA PLUS STRP Use for testing bloodsugars three times daily as needed ACCU-CHEK KEYONA PLUS STRP GLUCOSE BLOOD Inactive ACCU-CHEK FASTCLIX LANCETS MISC Use to check bloodsugar three times daily as needed ACCU-CHEK FASTCLIX LANCETS MISC 64378832464 LANCETS Inactive TRAMADOL HCL 50 MG TABS 1 tablets every 6 hours as needed for pain TRAMADOL HCL 50 MG TABS 589300 TRAMADOL HCL Inactive VENLAFAXINE HCL 75 MG TABS 1 po BID VENLAFAXINE HCL 75 MG TABS 847105 VENLAFAXINE HCL Inactive HYDROCODONE-ACETAMINOPHEN 5-500 MG TABS take one po Q 4-6 hours prn HYDROCODONE-ACETAMINOPHEN 5-500 MG TABS HYDROCODONE- ACETAMINOPHEN Inactive LORTAB 5 5-500 MG TABS 1/2 to 1 tablet by mouth every 4 hours as needed for pain LORTAB 5 5-500 MG TABS HYDROCODONE- ACETAMINOPHEN Inactive LAMISIL 250 MG TAB 1 po qd LAMISIL 250 MG TAB 970631 TERBINAFINE HCL Inactive VENLAFAXINE HCL 37.5 MG TABS 1 po BID VENLAFAXINE HCL 37.5 MG TABS 815241 VENLAFAXINE HCL Inactive CIPRO 500 MG TAB 1 tablet by mouth twice daily CIPRO 500 MG TAB 270143 CIPROFLOXACIN HCL Inactive VENLAFAXINE HCL 75 MG TABS 1 po BID VENLAFAXINE HCL 75 MG TABS 819815 VENLAFAXINE HCL Inactive SIMVASTATIN 40 MG TABS Take one by mouth daily SIMVASTATIN 40 MG TABS 582862 SIMVASTATIN Inactive OMEPRAZOLE 20 MG TBEC 1 PO 30 MIN BEFORE 1ST MEAL OMEPRAZOLE 20 MG TBEC 437241 OMEPRAZOLE Inactive FENOFIBRATE 145 MG TABS 1 po qd FENOFIBRATE 145 MG TABS 556627 FENOFIBRATE Inactive BACTRIM DS 800-160 MG TABS 1 bid x 14 day start 09-28-13 BACTRIM DS 800-160 MG TABS 781533 SULFAMETHOXAZOLE-TRIMETHOPRIM Inactive B-12 100 MCG TABS Take one by mouth daily B-12 100 MCG TABS CYANOCOBALAMIN Inactive GABAPENTIN 100 MG CAPS 1 po bid GABAPENTIN 100 MG CAPS 846564 GABAPENTIN Inactive HYDROCODONE-ACETAMINOPHEN 5-325 MG TABS 1 tab by mouth every 6 hours as needed for pain HYDROCODONE-ACETAMINOPHEN 5-325 MG TABS 479171 HYDROCODONE-ACETAMINOPHEN Inactive CIPRO 500 MG TABS 1 bid x 14 days start 09-28-13 CIPRO 500 MG TABS 812714 CIPROFLOXACIN HCL Inactive ALIGN 4 MG CAPS [...] as needed DICLOFENAC SODIUM 50 MG TBEC 722074 DICLOFENAC SODIUM Inactive PREDNISONE 20 MG TAB 2 tablets once daily for 2 days, then 1 tablet once daily for 2 days PREDNISONE 20 MG TAB 324391 PREDNISONE Inactive TRUEDRAW LANCING DEVICE MISC Test [...] 2 weeks TRIAMCINOLONE ACETONIDE 0.1 % OINT 3094739 TRIAMCINOLONE ACETONIDE Inactive PREDNISONE 20 MG TAB 2 tabs daily for 3 days, 1 tab daily for 3 days, 1/2 tab daily for 2 days PREDNISONE 20 MG TAB 757057 PREDNISONE Inactive PREDNISONE 20 MG TAB 2 tabs daily for 3 days, 1 tab daily for 3 days, 1/2 tab daily for 2 days PREDNISONE 20 MG TAB 480945 PREDNISONE Inactive BACTRIM DS 800-160 MG TABS 1 po BID x 7 days BACTRIM DS 800-160 MG TABS 955180 SULFAMETHOXAZOLE-TRIMETHOPRIM Inactive ZITHROMAX 250 MG TAB 2 po today, then 1 po q days 2-5 ZITHROMAX 250 MG TAB 3534203 AZITHROMYCIN Inactive Immunizations Vaccine Administration Date Value Standard Description Seasonal influenza vaccine, injectable, containing preservative, for > 3 years old (Afluria, FluLaval, Fluzone, Fluvirin, Fluarix, Agriflu(>=18 yo)) Fluzone (>3 yrs.) [[id number]] Influenza, seasonal, injectable influenza immunization (Flu Vax) has been administered 02/22/2012 influenza virus vaccine, unspecified formulation Seasonal influenza vaccine, injectable, containing preservative, for > 3 years old (Afluria, FluLaval, Fluzone, Fluvirin, Fluarix, Agriflu(>=18 yo)) Fluzone (>3 yrs.) [[id number]] Influenza, seasonal, injectable Vital Signs Date Name Value Unit Range Description blood pressure, diastolic - 8462-4 81 mm[Hg] [...] CBC - Chemistry sodium, serum 143 mmol/L 444-803 8803/03/10 potassium, serum 4.9 mmol/L 3.5-5.2 chloride, serum [...] MICROALBUMIN - Chemistry sodium, serum 142 mmol/L 712-534 4705/10/08 potassium, serum 4.5 mmol/L 3.5-5.2 chloride, serum [...] 0.30 mg/dL 0.00-1.00 cholesterol, serum 111 mg/dL 527-402 4729/07/28 triglyceride, serum, fasting 177 mg/dL 30-200 HDL [...] Panel - Chemistry cholesterol, serum 124 mg/dL 500-673 0122/01/12 triglyceride, serum, fasting 135 mg/dL 30-200 HDL cholesterol, serum 41 mg/dL 32-96 LDL cholesterol, serum 56 mg/dL 0-130 sodium, serum 140 mmol/L 326-611 1676/01/12 carbon dioxide, venous blood 27.7 mmol/L 21.0-32.0 potassium, serum 4.5 mmol/L 3.5-5.2 chloride, serum 104 mmol/L 98-107 blood glucose 139 mg/dL 65-110 urea nitrogen, blood 16 mg/dL 7-18 alanine aminotransferase (SGPT), serum 32 U/L 12-78 aspartate aminotransferase (SGOT), serum 25 U/L 15-37 calcium, serum 9.1 mg/dL 8.5-10.1 bilirubin, serum, total 0.50 mg/dL 0.00-1.00 Encounters Code Encounter Date Provider Facility CPT-07881 Level 3 Est. Patient 10:06:54 ELECTROTYPE FINISHER Miranda Suresh APRN [facility] CPT-73936 Level 4 Est. Patient 13:50:18 ELECTROTYPE FINISHER Tu Landeros MD [facility] CPT-27469 Level 3 Est. Patient 10:30:04 CDT Tu Landeros MD [facility] CPT-69816 Level 4 Est. Patient 11:03:38 CDT Tu Landeros MD [facility] CPT-76689 Level 3 Est. Patient 10:20:44 CDT Fab Morales DO [facility] CPT-61230 Level 4 Est. Patient 14:38:57 CDT Tu Landeros MD [facility] CPT-34765 Level 4 Est. Patient 14:27:39 ELECTROTYPE FINISHER Tu Landeros MD [facility] CPT-14714 Level 4 Est. Patient 09:45:25 CDT Tu Landeros MD [facility] CPT-63383 Level 4 Est. Patient 09:05:20 ELECTROTYPE FINISHER Tu Landeros MD [facility] CPT-54185 Level 4 Est. Patient 14:09:06 CDT Tu Landeros MD [facility] CPT-64191 Level 3 Est. Patient 13:36:54 CDT Tu Landeros MD [facility] CPT-39879 Level 3 Est. Patient 08:59:14 CDT Tu Landeros MD [facility] CPT-12524 Level 3 Est. Patient 13:48:35 CDT Fab Morales DO [facility] CPT-35186 Level 4 Est. Patient 10:05:48 CDT Tu Landeros MD [facility] CPT-24219 Level 3 Est. Patient 13:38:42 CDT Marek BANKS [facility] CPT-79046 Level 5 Est. Patient 08:08:39 CDT Jerrica FRANCIS [facility] CPT-64024 Level 4 Est. Patient 14:23:38 CDT Tu Landeros MD [facility] CPT-88661 Level 3 Est. Patient 11:44:04 CDT Tu Landeros MD [facility] CPT-02241 Level 3 Est. Patient 11:03:20 ELECTROTYPE FINISHER Tu Landeros MD [facility] CPT-24240 Level 3 Est. Patient 11:03:14 ELECTROTYPE FINISHER Tu Landeros MD [facility] CPT-29180 Level 3 Est. Patient 12:42:49 CDT Tu Landeros MD [facility] CPT-94994 Level 3 Est. Patient 11:52:06 CDT Tu Landeros MD [facility] CPT-96997 Level 3 Est. Patient 13:58:11 CDT Tu Landeros MD [facility] CPT-78093 Level 3 Est. Patient 17:50:07 CDT Fab Morales DO [facility] CPT-39879 Level 3 Est. Patient 12:06:29 CDT Elvira Cervantes MD PhD [facility] CPT-62311 Level 3 Est. Patient 15:50:32 CDT Tu Landeros MD [facility] CPT-99550 Level 4 Est. Patient 16:08:29 CDT Tu Landeros MD [facility] CPT-43076 Level 3 Est. Patient 16:04:19 CDT Tu Landeros MD [facility] CPT-40393 Level 3 Est. Patient 11:22:30 ELECTROTYPE FINISHER Tu Landeros MD [facility] CPT-78743 Level 4 Est. Patient 16:24:02 ELECTROTYPE FINISHER Tu Landeros MD [facility] CPT-01103 Level 3 Est. Patient 17:21:23 ELECTROTYPE FINISHER Tu Landeros MD [facility] Procedures Code Procedure Name Date Entry Date Standard Description CPT-05347 Breathing Tx 10:06:54 ELECTROTYPE FINISHER CPT-02349 Postop F/U Visit 10:02:45 CDT CPT-LR Lesion Removal 09:02:56 CDT CPT-JTINJ Asp/Joint Injection 15:51:27 ELECTROTYPE FINISHER CPT-OV Office Visit 15:52:02 ELECTROTYPE FINISHER CPT-OV Office Visit 15:45:11 CDT CPT-000 Give Zostavax 14:09:06 CDT CPT-00421 Administration single or combination vaccine inc oral 15 :19:04 CDT CPT-99113 Zoster Vaccine (Zostavax) 15:19:04 CDT CPT-04452 Administration single or combination vaccine inc oral 20 :51:03 CDT CPT-18906 Influenza split virus > age 3 20:51:03 CDT CPT-64956 No Charge Offi Visit 14:52:03 CDT CPT-OV Office Visit 14:57:43 CDT CPT-OV Office Visit 15:22:32 CDT CPT-17079 Administration single or combination vaccine inc oral 11 :33:15 CDT CPT-22515 Influenza split virus > age 3 11:33:15 CDT
--- OUTSIDE RECORDS SUMMARY | 2018-04-25 14:01 | XMS REPORT | Clinical Summary ---
Author Author Admin, SACHI Organization [employer] Address Unknown Phone Unavailable Allergies, Adverse [...] blood sugar BID Dx: E11.9 GLUCOSE BLOOD 62726744362 Active Tu Landeros MD Active TRUE METRIX AIR GLUCOSE METER W/DEVICE KIT Test blood glucose BID Dx: E11.9 BLOOD GLUCOSE MONITORING SUPPL 69889791028 Active Tu Landeros MD Active TRUETEST TEST INVITR STRP test blood sugar twice daily. DX 250.0 GLUCOSE BLOOD 45886842946 No Longer Active Mirna Stanley LPN Active TRUEDRAW LANCING DEVICE MISC test blood sugar twice daily dx: 250.00 LANCET DEVICES 79082361152 No Longer Active Mirna Stanley LPN Active ENALAPRIL MALEATE 20 MG TABS 2 po qd ENALAPRIL MALEATE 10647993034 Active Tu Landeros MD Active SUPER B COMPLEX/VITAMIN C TABS 1 qd B COMPLEX-C 08385457441 No Longer Active Tu Landeros MD Active ASPIRIN EC 81 MG ORAL TBEC 1 po qd ASPIRIN 63865207689 Active Tu Landeros MD Active GLUCOSAMINE 500 MG TABS 2 po qd GLUCOSAMINE Active Tu Landeros MD Active SIMVASTATIN 40 MG TABS 0.5 po qHS SIMVASTATIN 97267971739 Active Tu Landeros MD Active FISH OIL 1000 MG CAPS 1 po qd OMEGA-3 FATTY ACIDS 07711262271 Active Tu Landeros MD Active METFORMIN HCL 1000 MG TABS 1 po BID METFORMIN HCL 23262005994 Active Tu Landeros MD Active KLOR-CON 10 10 MEQ CR-TABS 2 po qd POTASSIUM CHLORIDE 57691828273 Active Tu Landeros MD Active FUROSEMIDE 40 MG TAB 1 po qd FUROSEMIDE 12459091698 Active Tu Landeros MD Active REQUIP 2 MG ORAL TABS 1 po qHS PRN Restless legs ROPINIROLE HCL 51087583171 Active Tu Landeros MD Active VENLAFAXINE HCL 37.5 MG TABS 1 po BID VENLAFAXINE HCL 14931105258 Active Tu Landeros MD Active GABAPENTIN 100 MG CAPS 1 po BID GABAPENTIN 03491133657 Active Tu Landeros MD Active REQUIP 2 MG TABS Take one tablet at bedtime prn ROPINIROLE HCL 83657234929 No Longer Active Tu Landeros MD Active VENTOLIN HFA 108 (90 BASE) MCG/ACT AERS 1-2 puffs every 4 hours if needed for cough/congestion ALBUTEROL SULFATE 20738034420 No Longer Active Ambika Aden APRN Active ZITHROMAX 250 MG TAB 2 po today, then 1 po q days 2-5 AZITHROMYCIN 41960808798 No Longer Active Miranda Suresh APRN Active FLONASE 50 MCG/ACT SUSP 1 spray each nostril twice daily until bottle empty FLUTICASONE PROPIONATE 31429526493 No Longer Active Tu Landeros MD Active COLACE 100 MG CAP 1 po BID PRN Constipation DOCUSATE SODIUM 01655096241 Active Tu Landeros MD Active TRUERESULT BLOOD GLUCOSE W/DEVICE KIT test blood sugar twice daily dx 250.00 BLOOD GLUCOSE MONITORING SUPPL 23315116420 No Longer Active Tu Landeros MD Active TRUEDRAW LANCING DEVICE MISC Test twice a day dx 250.0 LANCET DEVICES 68435697651 No Longer Active Tu Landeros MD Active PREDNISONE 20 MG TAB 2 tablets once daily for 2 days, then 1 tablet once daily for 2 days PREDNISONE 75332485575 No Longer Active Tu Landeros MD Active DICLOFENAC SODIUM 50 MG TBEC 1 tablet by mouth three times a day as needed DICLOFENAC SODIUM 64991675474 No Longer Active Fab Morales DO Active EMBRACE BLOOD GLUCOSE TEST STRP test blood sugar twice daily DX 250.0 2014 GLUCOSE BLOOD 59705096238 No Longer Active Tu Landeros MD Active TRUETEST TEST STRP test blood sugar three times daily dx: 250.00 GLUCOSE BLOOD 74924085759 No Longer Active Suzebianca VOGEL Active TRUERESULT BLOOD GLUCOSE W/DEVICE KIT use to test blood sugar tid dx: 250.00 BLOOD GLUCOSE MONITORING SUPPL 35993872171 No Longer Active Suze Corey VOGEL Active ALIGN 4 MG CAPS 1 tid PROBIOTIC PRODUCT 64368252131 No Longer Active Shaun Sy MD Active CIPRO 500 MG TABS 1 bid x 14 days start 09-28-13 CIPROFLOXACIN HCL 05673814151 No Longer Active Shaun Sy MD Active TRAMADOL HCL 50 MG TABS 1-2 tablets every 6 hours as needed for pain TRAMADOL HCL 36857166510 Active Lesli Kellogg APRN Active HYDROCODONE-ACETAMINOPHEN 5-325 MG TABS 1 tab by mouth every 6 hours as needed for pain HYDROCODONE-ACETAMINOPHEN 47636244986 No Longer Active Tu Landeros MD Active OMEPRAZOLE 20 MG CPDR 1 po q a.m. OMEPRAZOLE 14887928809 Active Lesli Fatumashahid PATEL Active GABAPENTIN 100 MG CAPS 1 po bid GABAPENTIN 25208848147 No Longer Active Tu Landeros MD Active B-12 100 MCG TABS Take one by mouth daily CYANOCOBALAMIN 99135498142 No Longer Active Tu Landeros MD Active BACTRIM DS 800-160 MG TABS 1 bid x 14 day start 09-28-13 SULFAMETHOXAZOLE-TRIMETHOPRIM 37272150219 No Longer Active Tu Landeros MD Active CARVEDILOL 12.5 MG TABS 1 po BID CARVEDILOL 14673334475 Active Tu Landeros MD Active TRILIPIX 135 MG CPDR 1 q hs CHOLINE FENOFIBRATE 98088373458 Active Tu Landeros MD Active FENOFIBRATE 145 MG TABS 1 po qd FENOFIBRATE 35670268145 No Longer Active JASPREET Perez Active OMEPRAZOLE 20 MG TBEC 1 PO 30 MIN BEFORE 1ST MEAL OMEPRAZOLE 22440454649 No Longer Active JASPREET Perez Active SIMVASTATIN 40 MG TABS Take one by mouth daily SIMVASTATIN 70486966021 No Longer Active JASPREET Perez Active VENLAFAXINE HCL 75 MG TABS 1 po BID VENLAFAXINE HCL 52737424416 No Longer Active JASPREET Perez Active CIPRO 500 MG TAB 1 tablet by mouth twice daily CIPROFLOXACIN HCL 27759428842 No Longer Active Tu Landeros MD Active VENLAFAXINE HCL 37.5 MG TABS 1 po BID VENLAFAXINE HCL 80270846545 No Longer Active Suze VOGEL Active LAMISIL 250 MG TAB 1 po qd TERBINAFINE HCL 96550828476 No Longer Active Tu Landeros MD Active LORTAB 5 5-500 MG TABS 1/2 to 1 tablet by mouth every 4 hours as needed for pain HYDROCODONE-ACETAMINOPHEN 95369028992 No Longer Active Tu Landeros MD Active HYDROCODONE-ACETAMINOPHEN 5-500 MG TABS take one po Q 4-6 hours prn HYDROCODONE-ACETAMINOPHEN 63872849146 No Longer Active Tu Landeros MD Active BACTRIM DS 800-160 MG TABS 1 po BID x 7 days SULFAMETHOXAZOLE-TRIMETHOPRIM 93264574458 No Longer Active Tu Landeros MD Active VENLAFAXINE HCL 75 MG TABS 1 po BID VENLAFAXINE HCL 54530296997 No Longer Active Elvira Cervantes MD PhD Active TRAMADOL HCL 50 MG TABS 1 tablets every 6 hours as needed for pain TRAMADOL HCL 65965993251 No Longer Active Tu Landeros MD Active ACCU-CHEK FASTCLIX LANCETS MISC Use to check bloodsugar three times daily as needed LANCETS 27060155145 No Longer Active Tu Landeros MD Active ACCU-CHEK KEYONA PLUS STRP Use for testing bloodsugars three times daily as needed GLUCOSE BLOOD 12142467631 No Longer Active Tu Landeros MD Active ACCU-CHEK KEYONA PLUS W/DEVICE KIT Use for testing bloodsugars three times daily as needed BLOOD GLUCOSE MONITORING SUPPL 01709281878 No Longer Active Tu Landeros MD Active SPIRONOLACTONE 25 MG TAB 0.5 tablet by mouth daily SPIRONOLACTONE 45456716380 No Longer Active Tu Landeros MD Active ALPRAZOLAM 0.5 MG TABS 1 tab every 6hrs as needed ALPRAZOLAM 90762060273 No Longer Active Tu Landeros MD Active AUGMENTIN 875-125 MG TAB 1 tab by mouth twice daily with food AMOXICILLIN-POT CLAVULANATE 69497544309 No Longer Active Tu Landeros MD Active PREDNISONE 20 MG TAB 2 tabs daily for 3 days, 1 tab daily for 3 days, 1/2 tab daily for 2 days PREDNISONE 82629946433 No Longer Active Tu Landeros MD Active XANAX 0.5 MG TABS 1 tablet every 6 hrs prn ALPRAZOLAM 86246552516 No Longer Active Tu Landeros MD Active PREDNISONE 20 MG TAB 2 tabs daily for 3 days, 1 tab daily for 3 days, 1/2 tab daily for 2 days PREDNISONE 64052714997 No Longer Active Tu Landeros MD Active TRIAMCINOLONE ACETONIDE 0.1 % OINT Apply to affected areas TID for up to 2 weeks TRIAMCINOLONE ACETONIDE 11568342184 No Longer Active Tu Landeros MD Active LORTAB 5 5-500 MG TABS 1/2 to 1 tablet by mouth every 4 hours as needed for pain HYDROCODONE-ACETAMINOPHEN 33342341007 No Longer Active Tu Landeros MD Active MULTIVITAMINS TABS Take one by mouth daily MULTIPLE VITAMIN 43384264564 No Longer Active Tu Landeros MD Active MELATONIN 5 MG TABS Take one by mouth daily MELATONIN 96353788763 No Longer Active Tu Landeros MD Active SOMA 350 MG TAB 1 po q 6 hours prn spasm CARISOPRODOL 84168911855 No Longer Active Tu Landeros MD Active MECLIZINE HCL 25 MG CHEW TAB 1 four times a day as needed for dizziness 08/05 MECLIZINE HCL 44410266388 No Longer Active Fab Morales DO Active ANGEL BREEZE 2 TEST DISK test tid prn GLUCOSE BLOOD 33259032236 No Longer Active Negra Scott RN Active REGLAN 10 MG TAB 1 po TID PRN Nausea METOCLOPRAMIDE HCL 63381878851 No Longer Active Tu Landeros MD Active METFORMIN HCL 500 MG TABS 1 PO BID METFORMIN HCL 96777915812 No Longer Active Tu Landeros MD Active AMBIEN 10 MG TAB 1 tab by mouth at bedtime as needed for sleep ZOLPIDEM TARTRATE 26628765961 No Longer Active Tu Landeros MD Active FLUOXETINE HCL 40 MG CAPS 1 po q day FLUOXETINE HCL 48296460599 No Longer Active Mayra Terry Active TRILIPIX 135 MG CPDR 1 po qd CHOLINE FENOFIBRATE 57852720967 No Longer Active Tu Landeros MD Active AMBIEN 10 MG TAB 1 tab by mouth at bedtime as needed for sleep AMBIEN 10 MG TAB 974356 ZOLPIDEM TARTRATE Inactive METFORMIN HCL 500 MG TABS 1 PO BID METFORMIN HCL 500 MG TABS 377933 METFORMIN HCL Inactive REGLAN 10 MG TAB 1 po TID PRN Nausea REGLAN 10 MG TAB 032091 METOCLOPRAMIDE HCL Inactive MECLIZINE HCL 25 MG CHEW TAB 1 four times a day as needed for dizziness 08/05 MECLIZINE HCL 25 MG CHEW TAB 185426 MECLIZINE HCL Inactive SOMA 350 MG TAB 1 po q 6 hours prn spasm SOMA 350 MG TAB 924029 CARISOPRODOL Inactive MELATONIN 5 MG TABS Take one by mouth daily MELATONIN 5 MG TABS 666607 MELATONIN Inactive MULTIVITAMINS TABS Take one by mouth daily MULTIVITAMINS TABS MULTIPLE VITAMIN Inactive LORTAB 5 5-500 MG TABS 1/2 to 1 tablet by mouth every 4 hours as needed for pain LORTAB 5 5-500 MG TABS HYDROCODONE- ACETAMINOPHEN Inactive XANAX 0.5 MG TABS 1 tablet every 6 hrs prn XANAX 0.5 MG TABS 436115 ALPRAZOLAM Inactive AUGMENTIN 875-125 MG TAB 1 tab by mouth twice daily with food AUGMENTIN 875-125 MG TAB 713808 AMOXICILLIN-POT CLAVULANATE Inactive ALPRAZOLAM 0.5 MG TABS 1 tab every 6hrs as needed ALPRAZOLAM 0.5 MG TABS 667742 ALPRAZOLAM Inactive SPIRONOLACTONE 25 MG TAB 0.5 tablet by mouth daily SPIRONOLACTONE 25 MG TAB 411031 SPIRONOLACTONE Inactive ACCU-CHEK KEYONA PLUS W/DEVICE KIT Use for testing bloodsugars three times daily as needed ACCU-CHEK KEYONA PLUS W/DEVICE KIT BLOOD GLUCOSE MONITORING SUPPL Inactive ACCU-CHEK KEYONA PLUS STRP Use for testing bloodsugars three times daily as needed ACCU-CHEK KEYONA PLUS STRP GLUCOSE BLOOD Inactive ACCU-CHEK FASTCLIX LANCETS MISC Use to check bloodsugar three times daily as needed ACCU-CHEK FASTCLIX LANCETS MISC 40202827505 LANCETS Inactive TRAMADOL HCL 50 MG TABS 1 tablets every 6 hours as needed for pain TRAMADOL HCL 50 MG TABS 454344 TRAMADOL HCL Inactive VENLAFAXINE HCL 75 MG TABS 1 po BID VENLAFAXINE HCL 75 MG TABS 813166 VENLAFAXINE HCL Inactive HYDROCODONE-ACETAMINOPHEN 5-500 MG TABS take one po Q 4-6 hours prn HYDROCODONE-ACETAMINOPHEN 5-500 MG TABS HYDROCODONE- ACETAMINOPHEN Inactive LORTAB 5 5-500 MG TABS 1/2 to 1 tablet by mouth every 4 hours as needed for pain LORTAB 5 5-500 MG TABS HYDROCODONE- ACETAMINOPHEN Inactive LAMISIL 250 MG TAB 1 po qd LAMISIL 250 MG TAB 020395 TERBINAFINE HCL Inactive VENLAFAXINE HCL 37.5 MG TABS 1 po BID VENLAFAXINE HCL 37.5 MG TABS 631649 VENLAFAXINE HCL Inactive CIPRO 500 MG TAB 1 tablet by mouth twice daily CIPRO 500 MG TAB 014073 CIPROFLOXACIN HCL Inactive VENLAFAXINE HCL 75 MG TABS 1 po BID VENLAFAXINE HCL 75 MG TABS 001784 VENLAFAXINE HCL Inactive SIMVASTATIN 40 MG TABS Take one by mouth daily SIMVASTATIN 40 MG TABS 825157 SIMVASTATIN Inactive OMEPRAZOLE 20 MG TBEC 1 PO 30 MIN BEFORE 1ST MEAL OMEPRAZOLE 20 MG TBEC 706480 OMEPRAZOLE Inactive FENOFIBRATE 145 MG TABS 1 po qd FENOFIBRATE 145 MG TABS 517462 FENOFIBRATE Inactive BACTRIM DS 800-160 MG TABS 1 bid x 14 day start 09-28-13 BACTRIM DS 800-160 MG TABS 012380 SULFAMETHOXAZOLE-TRIMETHOPRIM Inactive B-12 100 MCG TABS Take one by mouth daily B-12 100 MCG TABS CYANOCOBALAMIN Inactive GABAPENTIN 100 MG CAPS 1 po bid GABAPENTIN 100 MG CAPS 972495 GABAPENTIN Inactive HYDROCODONE-ACETAMINOPHEN 5-325 MG TABS 1 tab by mouth every 6 hours as needed for pain HYDROCODONE-ACETAMINOPHEN 5-325 MG TABS 340912 HYDROCODONE-ACETAMINOPHEN Inactive CIPRO 500 MG TABS 1 bid x 14 days start 09-28-13 CIPRO 500 MG TABS 954138 CIPROFLOXACIN HCL Inactive ALIGN 4 MG CAPS [...] day as needed DICLOFENAC SODIUM 50 MG [facility] 013944 DICLOFENAC SODIUM Inactive PREDNISONE 20 MG TAB 2 tablets once daily for 2 days, then 1 tablet once daily for 2 days PREDNISONE 20 MG TAB 509035 PREDNISONE Inactive TRUEDRAW LANCING DEVICE MISC Test twice a day dx 250.0 TRUEDRAW LANCING DEVICE MISC LANCET DEVICES Inactive TRUERESULT BLOOD GLUCOSE W/DEVICE KIT test blood sugar twice daily dx 250.00 TRUERESULT BLOOD GLUCOSE W/DEVICE KIT BLOOD GLUCOSE MONITORING SUPPL Inactive FLONASE 50 MCG/ACT SUSP 1 spray each nostril twice daily until bottle empty FLONASE 50 MCG/ACT SUSP 2943782 FLUTICASONE PROPIONATE Inactive VENTOLIN HFA 108 (90 BASE) MCG/ACT AERS 1-2 puffs every 4 hours if needed for cough/congestion VENTOLIN HFA 108 (90 BASE) MCG/ACT AERS ALBUTEROL SULFATE Inactive REQUIP 2 MG TABS Take one tablet at bedtime prn REQUIP 2 MG TABS 693822 ROPINIROLE HCL Inactive SUPER B COMPLEX/VITAMIN C TABS 1 qd SUPER B COMPLEX/ VITAMIN C TABS 46800759078 B COMPLEX-C Inactive TRUEDRAW LANCING DEVICE MISC test blood sugar twice daily dx: 250.00 TRUEDRAW LANCING DEVICE MISC LANCET DEVICES Inactive TRUETEST TEST INVITR STRP test blood sugar twice daily. DX 250.0 TRUETEST TEST INVITR STRP GLUCOSE BLOOD Inactive TRIAMCINOLONE ACETONIDE 0.1 % OINT Apply to affected areas TID for up to 2 weeks TRIAMCINOLONE ACETONIDE 0.1 % OINT 0081679 TRIAMCINOLONE ACETONIDE Inactive PREDNISONE 20 MG TAB 2 tabs daily for 3 days, 1 tab daily for 3 days, 1/2 tab daily for 2 days PREDNISONE 20 MG TAB 844440 PREDNISONE Inactive PREDNISONE 20 MG TAB 2 tabs daily for 3 days, 1 tab daily for 3 days, 1/2 tab daily for 2 days PREDNISONE 20 MG TAB 656577 PREDNISONE Inactive BACTRIM DS 800-160 MG TABS 1 po BID x 7 days BACTRIM DS 800-160 MG TABS 063451 SULFAMETHOXAZOLE-TRIMETHOPRIM Inactive ZITHROMAX 250 MG TAB 2 po today, then 1 po q days 2-5 ZITHROMAX 250 MG TAB 7657641 AZITHROMYCIN Inactive Advance Directives Directive Description Start Date DISCUSSED WITH PATIENT -- NO DECISION MADE Immunizations Vaccine Administration Date Value Standard Description Seasonal influenza vaccine, injectable, containing preservative, for > 3 years old (Afluria, FluLaval, Fluzone, Fluvirin, Fluarix, Agriflu(>=18 yo)) Fluzone (>3 yrs.) [LWP462] Influenza, seasonal, injectable influenza immunization (Flu Vax) has been administered 02/22/2012 influenza virus vaccine, unspecified formulation Seasonal influenza vaccine, injectable, containing preservative, for > 3 years old (Afluria, FluLaval, Fluzone, Fluvirin, Fluarix, Agriflu(>=18 yo)) Fluzone (>3 yrs.) [[id number]] Influenza, seasonal, injectable Vital Signs Date Name [...] Magnesium - Chemistry sodium, serum 143 mmol/L 549-601 2149/01/10 carbon dioxide, venous blood 28.0 mmol/L 21.0-32.0 potassium, serum 4.5 mmol/L 3.5-5.2 chloride, serum 104 mmol/L 98-107 blood glucose 158 mg/dL 65-110 urea nitrogen, blood 23 mg/dL 7-18 creatinine, serum 1.06 mg/dL 0.55-1.30 alanine aminotransferase (SGPT), serum 42 U/L 12-78 aspartate aminotransferase (SGOT), serum 32 U/L 15-37 calcium, serum 9.3 mg/dL 8.5-10.1 bilirubin, serum, total 0.20 mg/dL 0.00-1.00 cholesterol, serum 177 mg/dL 953-586 1956/01/10 triglyceride, serum, fasting 320 mg/dL 30-200 HDL cholesterol, serum 46 mg/dL 32-96 LDL cholesterol, serum 67 mg/dL 0-130 Lab Report: HGBA1C - Chemistry hemoglobin A1C, blood, as % of total hemoglobin 7.4 % 4.3-6.0 sodium, serum 140 mmol/L 841-590 0400/09/07 potassium, serum 4.3 mmol/L 3.5-5.2 chloride, serum [...] <30 Encounters Code Encounter Date Provider Facility CPT-79185 Level 4 Est. Patient 09:08:17 SR. STRATEGIC SOURCING MANAGER Tu Landeros MD [facility] CPT-44939 Level 4 Est. Patient 14:40:19 CDT Tu Landeros MD [facility] CPT-30260 Level 4 Est. Patient 14:06:04 SR. STRATEGIC SOURCING MANAGER Tu Landeros MD [facility] CPT-71182 Level 3 Est. Patient 14:05:18 SR. STRATEGIC SOURCING MANAGER Tu Landeros MD [facility] CPT-02351 Level 3 Est. Patient 10:06:54 SR. STRATEGIC SOURCING MANAGER [facility] CPT-36777 Level 4 Est. Patient 13:50:18 SR. STRATEGIC SOURCING MANAGER Tu Landeros MD [facility] CPT-99050 Level 3 Est. Patient 10:30:04 CDT Tu Landeros MD [facility] CPT-23642 Level 4 Est. Patient 11:03:38 CDT Tu Landeros MD [facility] CPT-77096 Level 3 Est. Patient 10:20:44 CDT Fab Morales DO [facility] CPT-02545 Level 4 Est. Patient 14:38:57 CDT Tu Landeros MD [facility] CPT-29323 Level 4 Est. Patient 14:27:39 SR. STRATEGIC SOURCING MANAGER Tu Landeros MD [facility] CPT-30538 Level 4 Est. Patient 09:45:25 CDT Tu Landeros MD [facility] CPT-23157 Level 4 Est. Patient 09:05:20 SR. STRATEGIC SOURCING MANAGER Tu Landeros MD [facility] CPT-94188 Level 4 Est. Patient 14:09:06 CDT Tu Landeros MD [facility] CPT-72411 Level 3 Est. Patient 13:36:54 CDT Tu Landeros MD [facility] CPT-22561 Level 3 Est. Patient 08:59:14 CDT Tu Landeros MD [facility] CPT-77587 Level 3 Est. Patient 13:48:35 CDT Fab Morales DO [facility] CPT-34603 Level 4 Est. Patient 10:05:48 CDT Tu Landeros MD [facility] CPT-93100 Level 3 Est. Patient 13:38:42 CDT Marek BANKS [facility] CPT-04050 Level 5 Est. Patient 08:08:39 CDT Jerrica FRANCIS [facility] CPT-90238 Level 4 Est. Patient 14:23:38 CDT Tu Landeros MD [facility] CPT-69361 Level 3 Est. Patient 11:44:04 CDT Tu Landeros MD [facility] CPT-96205 Level 3 Est. Patient 11:03:20 SR. STRATEGIC SOURCING MANAGER Tu Landeros MD [facility] CPT-05092 Level 3 Est. Patient 11:03:14 SR. STRATEGIC SOURCING MANAGER Tu Landeros MD [facility] CPT-40350 Level 3 Est. Patient 12:42:49 CDT Tu Landeros MD [facility] CPT-18167 Level 3 Est. Patient 11:52:06 CDT Tu Landeros MD [facility] CPT-22780 Level 3 Est. Patient 13:58:11 CDT Tu Landeros MD [facility] CPT-78485 Level 3 Est. Patient 17:50:07 CDT Fab Morales DO [facility] CPT-58691 Level 3 Est. Patient 12:06:29 CDT Elvira Cervantes MD PhD [facility] CPT-80593 Level 3 Est. Patient 15:50:32 CDT Tu Landeros MD [facility] CPT-26939 Level 4 Est. Patient 16:08:29 CDT Tu Landeros MD [facility] CPT-85586 Level 3 Est. Patient 16:04:19 CDT Tu Landeros MD [facility] CPT-69317 Level 3 Est. Patient 11:22:30 SR. STRATEGIC SOURCING MANAGER Tu Landeros MD [facility] CPT-22469 Level 4 Est. Patient 16:24:02 SR. STRATEGIC SOURCING MANAGER Tu Landeros MD [facility] CPT-79743 Level 3 Est. Patient 17:21:23 SR. STRATEGIC SOURCING MANAGER Tu Landeros MD [facility] Procedures Code Procedure Name Date Entry Date Standard Description CPT-68349 Venipuncture Draw Fee 13:15:35 CDT CPT-90454 Magnesium - LAB USE ONLY 11:14:20 SR. STRATEGIC SOURCING MANAGER CPT-76104 Lipid - LAB USE ONLY 11:14:20 SR. STRATEGIC SOURCING MANAGER CPT-52220 HGBA1C - LAB USE ONLY 11:14:20 SR. STRATEGIC SOURCING MANAGER CPT-08189 CMP - LAB USE ONLY 11:14:19 SR. STRATEGIC SOURCING MANAGER CPT-32893 CBC - LAB USE ONLY 11:14:19 SR. STRATEGIC SOURCING MANAGER CPT-97931 Venipuncture Draw Fee 11:14:18 SR. STRATEGIC SOURCING MANAGER CPT-46042 First Vx - Ix admin for Medicare patients 16:46:52 CDT CPT-04209 Fluzone Preservative Free Intramuscular Suspension 16:46 :51 CDT CPT-86233 CBC - LAB USE ONLY 17:14:46 CDT CPT-31295 HGBA1C - LAB USE ONLY 17:14:46 CDT CPT-60850 Venipuncture Draw Fee 17:14:46 CDT CPT-G0438 Initial Annual Wellness Exam 14:13:04 CDT CPT-86432 Breathing Tx 10:06:54 SR. STRATEGIC SOURCING MANAGER CPT-31530 Postop F/U Visit 10:02:45 CDT CPT-LR Lesion Removal 09:02:56 CDT CPT-JTINJ Asp/Joint Injection 15:51:27 SR. STRATEGIC SOURCING MANAGER CPT-OV Office Visit 15:52:02 SR. STRATEGIC SOURCING MANAGER CPT-OV Office Visit 15:45:11 CDT CPT-000 Give Zostavax 14:09:06 CDT CPT-35773 Administration single or combination vaccine inc oral 15 :19:04 CDT CPT-34289 Zoster Vaccine (Zostavax) 15:19:04 CDT CPT-55847 Administration single or combination vaccine inc oral 20 :51:03 CDT CPT-94603 Influenza split virus > age 3 20:51:03 CDT CPT-61003 No Charge Offi Visit 14:52:03 CDT CPT-OV Office Visit 14:57:43 CDT CPT-OV Office Visit 15:22:32 CDT CPT-35584 Administration single or combination vaccine inc oral 11 :33:15 CDT CPT-53054 Influenza split virus > age 3 11:33:15 CDT
--- OUTSIDE RECORDS SUMMARY | 2018-04-25 14:03 | XMS REPORT | Clinical Summary ---
Author Author Admin, SACHI Organization [employer] Address Unknown Phone Unavailable Allergies, Adverse [...] SYRUP 5ml po q6hr PRN Cough PROMETHAZINE-CODEINE 42153277194 No Longer Active Tu Landeros MD Active AZITHROMYCIN 250 MG ORAL TABLET 2 po qd x 1, then 1 po qd x 4 AZITHROMYCIN 85456986114 No Longer Active Tu Landeros MD Active GUAIFENESIN ER 600 MG ORAL TABLET EXTENDED RELEASE 12 HOUR 1 twice a day as needed for congestion GUAIFENESIN 65564196994 No Longer Active Tu Landeros MD Active PREDNISONE 20 MG ORAL TABLET 2 po qd x 5 days PREDNISONE 06411553683 No Longer Active Tu Landeros MD Active FLUTICASONE PROPIONATE 50 MCG/ACT NASAL SUSPENSION 2 sprays/nostril qd PRN Congestion/Allergies FLUTICASONE PROPIONATE 04201414359 Active Tu Landeros MD Active NASONEX 50 MCG/ACT NASAL SUSPENSION 2 actuations in each nostril q day 07/15 MOMETASONE FUROATE 34278584578 No Longer Active Tu Landeros MD Active MAGNESIUM OXIDE 400 MG ORAL TABLET 1 po BID MAGNESIUM OXIDE 69194591500 Active Tu Landeros MD Active SIMVASTATIN 20 MG ORAL TABLET 0.5 po qHS SIMVASTATIN 56865625051 Active Tu Landeros MD Active DICLOFENAC SODIUM 75 MG ORAL TABLET DELAYED RELEASE 1 po BID PRN Pain DICLOFENAC SODIUM 33790565249 No Longer Active Tu Landeros MD Active GABAPENTIN 100 MG ORAL CAPSULE 1 po TID GABAPENTIN 00188891899 Active Tu Landeros MD Active DICLOFENAC SODIUM 50 MG ORAL TABLET DELAYED RELEASE 1 po BID PRN Pain DICLOFENAC SODIUM 75577232176 No Longer Active Tu Landeros MD Active CYCLOBENZAPRINE HCL 10 MG ORAL TABLET 1 po TID PRN Muscle Spasm CYCLOBENZAPRINE HCL 60199609797 No Longer Active Tu Landeros MD Active INVOKANA 100 MG ORAL TABLET 1 po qd CANAGLIFLOZIN 64709884932 Active Tu Landeros MD Active GLIPIZIDE 5 MG ORAL TABLET 1 po qd GLIPIZIDE 96835502949 No Longer Active Tu Landeros MD Active VENLAFAXINE HCL 75 MG ORAL TABLET 1 po BID VENLAFAXINE HCL 63448653147 Active Tu Landeros MD Active GLIMEPIRIDE 1 MG ORAL TABLET 1 po qd GLIMEPIRIDE 63151165571 No Longer Active Tu Landeros MD Active TRUE METRIX BLOOD GLUCOSE TEST IN VITRO STRIP Test blood sugar BID Dx: E11.9 GLUCOSE BLOOD 56438803421 Active Tu Landeros MD Active TRUE METRIX AIR GLUCOSE METER w/Device KIT Test blood glucose BID Dx: E11.9 BLOOD GLUCOSE MONITORING SUPPL 67432279195 Active Tu Landeros MD Active TRUETEST TEST IN VITRO STRIP test blood sugar twice daily. DX 250.0 GLUCOSE BLOOD 80731120400 No Longer Active Mirna Stanley LPN Active TRUEDRAW LANCING DEVICE test blood sugar twice daily dx: 250.00 LANCET DEVICES 38687182043 No Longer Active Mirna Stanley LPN Active ENALAPRIL MALEATE 20 MG ORAL TABLET 2 po qd ENALAPRIL MALEATE 99070842133 Active Tu Landeros MD Active SUPER B COMPLEX/VITAMIN C ORAL TABLET 1 qd B COMPLEX- C 68364515034 No Longer Active Tu Landeros MD Active ASPIRIN EC 81 MG ORAL TABLET DELAYED RELEASE 1 po qd ASPIRIN 39570032506 Active Tu Landeros MD Active GLUCOSAMINE 500 MG TABS 2 po qd GLUCOSAMINE Active Tu Landeros MD Active FISH OIL 1000 MG ORAL CAPSULE 1 po qd OMEGA-3 FATTY ACIDS 22469081310 Active Tu Landeros MD Active METFORMIN HCL 1000 MG ORAL TABLET 1 po BID METFORMIN HCL 82169709124 Active Tu Landeros MD Active KLOR-CON 10 10 MEQ ORAL TABLET EXTENDED RELEASE 2 po qd POTASSIUM CHLORIDE 72021252653 Active Tu Landeros MD Active FUROSEMIDE 40 MG ORAL TABLET 1 po qd FUROSEMIDE 57389238993 Active Tu Landeros MD Active REQUIP 2 MG ORAL TABLET 1 po qHS PRN Restless legs ROPINIROLE HCL 05110949026 Active Tu Landeros MD Active REQUIP 2 MG ORAL TABLET Take one tablet at bedtime prn ROPINIROLE HCL 68371499793 No Longer Active Tu Landeros MD Active VENTOLIN HFA 108 (90 Base) MCG/ACT INHALATION AEROSOL SOLUTION 1-2 puffs every 4 hours if needed for cough/congestion ALBUTEROL SULFATE 60948902705 No Longer Active Ambika Aden APRN Active ZITHROMAX 250 MG ORAL TABLET 2 po today, then 1 po q days 2-5 AZITHROMYCIN 34707427432 No Longer Active Miranda Farah APRN Active FLONASE 50 MCG/ACT NASAL SUSPENSION 1 spray each nostril twice daily until bottle empty FLUTICASONE PROPIONATE 71506420012 No Longer Active Tu Landeros MD Active COLACE 100 MG ORAL CAPSULE 1 po BID PRN Constipation DOCUSATE SODIUM 07066158315 Active Tu Landeros MD Active TRUERESULT BLOOD GLUCOSE w/Device KIT test blood sugar twice daily dx 250.00 BLOOD GLUCOSE MONITORING SUPPL 32921936956 No Longer Active Tu Landeros MD Active TRUEDRAW LANCING DEVICE Test twice a day dx 250.0 LANCET DEVICES 44009494690 No Longer Active Tu Landeros MD Active PREDNISONE 20 MG ORAL TABLET 2 tablets once daily for 2 days, then 1 tablet once daily for 2 days PREDNISONE 70441087719 No Longer Active Tu Landeros MD Active DICLOFENAC SODIUM 50 MG ORAL TABLET DELAYED RELEASE 1 tablet by mouth three times a day as needed DICLOFENAC SODIUM 64528512848 No Longer Active Fab Morales DO Active EMBRACE BLOOD GLUCOSE TEST IN VITRO STRIP test blood sugar twice daily DX 250.0 GLUCOSE BLOOD 83762725569 No Longer Active Tu Landeros MD Active TRUETEST TEST IN VITRO STRIP test blood sugar three times daily dx: 250.00 GLUCOSE BLOOD 25949612268 No Longer Active Suze VOGEL Active TRUERESULT BLOOD GLUCOSE w/Device KIT use to test blood sugar tid dx: 250.00 BLOOD GLUCOSE MONITORING SUPPL 05696414503 No Longer Active Suze VOGEL Active ALIGN 4 MG ORAL CAPSULE 1 tid PROBIOTIC PRODUCT 00461110602 No Longer Active Shaun Sy MD Active CIPRO 500 MG ORAL TABLET 1 bid x 14 days start 09-28-13 CIPROFLOXACIN HCL 42365030081 No Longer Active Shaun Sy MD Active TRAMADOL HCL 50 MG ORAL TABLET 1-2 tablets every 6 hours as needed for pain TRAMADOL HCL 00217575100 Active uT Landeros MD Active HYDROCODONE-ACETAMINOPHEN 5-325 MG ORAL TABLET 1 tab by mouth every 6 hours as needed for pain HYDROCODONE-ACETAMINOPHEN 25482308457 No Longer Active Tu Landeros MD Active OMEPRAZOLE 20 MG ORAL CAPSULE DELAYED RELEASE 1 po q a.m. OMEPRAZOLE 22935254468 Active Fab Morales DO Active GABAPENTIN 100 MG ORAL CAPSULE 1 po bid GABAPENTIN 26861320949 No Longer Active Tu Landeros MD Active B-12 100 MCG ORAL TABLET Take one by mouth daily CYANOCOBALAMIN 06886040911 No Longer Active Tu Landeros MD Active BACTRIM DS 800-160 MG ORAL TABLET 1 bid x 14 day start 09-28-13 SULFAMETHOXAZOLE-TRIMETHOPRIM 64733707074 No Longer Active Tu Landeros MD Active CARVEDILOL 12.5 MG ORAL TABLET 1 po BID CARVEDILOL 83663914517 Active Tu Landeros MD Active TRILIPIX 135 MG ORAL CAPSULE DELAYED RELEASE 1 q hs CHOLINE FENOFIBRATE 88357892810 Active Tu Landeros MD Active FENOFIBRATE 145 MG ORAL TABLET 1 po qd FENOFIBRATE 25613427274 No Longer Active JASPREET Perez Active OMEPRAZOLE 20 MG ORAL TABLET DELAYED RELEASE 1 PO 30 MIN BEFORE 1ST MEAL 2010 OMEPRAZOLE 47631641349 No Longer Active JASPREET Perez Active SIMVASTATIN 40 MG ORAL TABLET Take one by mouth daily SIMVASTATIN 22990005751 No Longer Active JASPREET Perez Active VENLAFAXINE HCL 75 MG ORAL TABLET 1 po BID VENLAFAXINE HCL 75845920276 No Longer Active JASPREET Perez Active CIPRO 500 MG ORAL TABLET 1 tablet by mouth twice daily CIPROFLOXACIN HCL 59464661242 No Longer Active Tu Landeros MD Active VENLAFAXINE HCL 37.5 MG ORAL TABLET 1 po BID VENLAFAXINE HCL 67454003253 No Longer Active Suze VOGEL Active LAMISIL 250 MG ORAL TABLET 1 po qd TERBINAFINE HCL 88842244211 No Longer Active Tu Landeros MD Active LORTAB 5-500 MG ORAL TABLET 1/2 to 1 tablet by mouth every 4 hours as needed for pain HYDROCODONE-ACETAMINOPHEN 17311521324 No Longer Active Tu Landeros MD Active HYDROCODONE-ACETAMINOPHEN 5-500 MG ORAL TABLET take one po Q 4-6 hours prn HYDROCODONE-ACETAMINOPHEN 62965072437 No Longer Active Tu Landeros MD Active BACTRIM DS 800-160 MG ORAL TABLET 1 po BID x 7 days SULFAMETHOXAZOLE-TRIMETHOPRIM 05269332213 No Longer Active Tu Landeros MD Active VENLAFAXINE HCL 75 MG ORAL TABLET 1 po BID VENLAFAXINE HCL 32183374128 No Longer Active Elvira Cervantes MD PhD Active TRAMADOL HCL 50 MG ORAL TABLET 1 tablets every 6 hours as needed for pain TRAMADOL HCL 42969705537 No Longer Active Tu Landeros MD Active ACCU-CHEK FASTCLIX LANCETS Use to check bloodsugar three times daily as needed LANCETS 20977131744 No Longer Active Tu Landeros MD Active ACCU-CHEK KEYONA PLUS IN VITRO STRIP Use for testing bloodsugars three times daily as needed GLUCOSE BLOOD 85931919990 No Longer Active Tu Landeros MD Active ACCU-CHEK KEYONA PLUS w/Device KIT Use for testing bloodsugars three times daily as needed BLOOD GLUCOSE MONITORING SUPPL 36988946904 No Longer Active Tu Landeros MD Active SPIRONOLACTONE 25 MG ORAL TABLET 0.5 tablet by mouth daily 09/09 SPIRONOLACTONE 67732334261 No Longer Active Tu Landeros MD Active ALPRAZOLAM 0.5 MG ORAL TABLET 1 tab every 6hrs as needed ALPRAZOLAM 42829801532 No Longer Active Tu Landeros MD Active AUGMENTIN 875-125 MG ORAL TABLET 1 tab by mouth twice daily with food AMOXICILLIN-POT CLAVULANATE 69756572137 No Longer Active Tu Landeros MD Active PREDNISONE 20 MG ORAL TABLET 2 tabs daily for 3 days, 1 tab daily for 3 days, 1/2 tab daily for 2 days PREDNISONE 63449383105 No Longer Active Tu Landeros MD Active XANAX 0.5 MG ORAL TABLET 1 tablet every 6 hrs prn ALPRAZOLAM 12257701347 No Longer Active Tu Landeros MD Active PREDNISONE 20 MG ORAL TABLET 2 tabs daily for 3 days, 1 tab daily for 3 days, 1/2 tab daily for 2 days PREDNISONE 62859039275 No Longer Active Tu Landeros MD Active TRIAMCINOLONE ACETONIDE 0.1 % EXTERNAL OINTMENT Apply to affected areas TID for up to 2 weeks TRIAMCINOLONE ACETONIDE 97002701718 No Longer Active Tu Landeros MD Active LORTAB 5-500 MG ORAL TABLET 1/2 to 1 tablet by mouth every 4 hours as needed for pain HYDROCODONE-ACETAMINOPHEN 63554454534 No Longer Active Tu Landeros MD Active MULTIVITAMINS TABS Take one by mouth daily MULTIPLE VITAMIN 55662522743 No Longer Active Tu Landeros MD Active MELATONIN 5 MG ORAL TABLET Take one by mouth daily MELATONIN 03679487905 No Longer Active Tu Landeros MD Active SOMA 350 MG ORAL TABLET 1 po q 6 hours prn spasm CARISOPRODOL 94741005474 No Longer Active Tu Landeros MD Active MECLIZINE HCL 25 MG ORAL TABLET CHEWABLE 1 four times a day as needed for dizziness MECLIZINE HCL 83254498390 No Longer Active Fab Morales DO Active ANGEL BREEZE 2 TEST IN VITRO DISK test tid prn GLUCOSE BLOOD 20510711109 No Longer Active Negra Scott RN Active REGLAN 10 MG ORAL TABLET 1 po TID PRN Nausea METOCLOPRAMIDE HCL 59291733682 No Longer Active Tu Landeros MD Active METFORMIN HCL 500 MG ORAL TABLET 1 PO BID METFORMIN HCL 30379165945 No Longer Active Tu Landeros MD Active AMBIEN 10 MG ORAL TABLET 1 tab by mouth at bedtime as needed for sleep 06/10 ZOLPIDEM TARTRATE 24300922588 No Longer Active Tu Landeros MD Active FLUOXETINE HCL 40 MG ORAL CAPSULE 1 po q day FLUOXETINE HCL 26221932194 No Longer Active Mayra Terry Active TRILIPIX 135 MG ORAL CAPSULE DELAYED RELEASE 1 po qd CHOLINE FENOFIBRATE 41728700322 No Longer Active Tu Landeros MD Active AMBIEN 10 MG ORAL TABLET 1 tab by mouth at bedtime as needed for sleep 06/10 AMBIEN 10 MG ORAL TABLET 726069 ZOLPIDEM TARTRATE Inactive METFORMIN HCL 500 MG ORAL TABLET 1 PO BID METFORMIN HCL 500 MG ORAL TABLET 660775 METFORMIN HCL Inactive REGLAN 10 MG ORAL TABLET 1 po TID PRN Nausea REGLAN 10 MG ORAL TABLET 733251 METOCLOPRAMIDE HCL Inactive MECLIZINE HCL 25 MG ORAL TABLET CHEWABLE 1 four times a day as needed for dizziness MECLIZINE HCL 25 MG ORAL TABLET CHEWABLE 064637 MECLIZINE HCL Inactive SOMA 350 MG ORAL TABLET 1 po q 6 hours prn spasm SOMA 350 MG ORAL TABLET 749738 CARISOPRODOL Inactive MELATONIN 5 MG ORAL TABLET Take one by mouth daily MELATONIN 5 MG ORAL TABLET 072589 MELATONIN Inactive MULTIVITAMINS TABS Take one by mouth daily MULTIVITAMINS TABS MULTIPLE VITAMIN Inactive LORTAB 5-500 MG ORAL TABLET 1/2 to 1 tablet by mouth every 4 hours as needed for pain LORTAB 5-500 MG ORAL TABLET HYDROCODONE- ACETAMINOPHEN Inactive XANAX 0.5 MG ORAL TABLET 1 tablet every 6 hrs prn XANAX 0.5 MG ORAL TABLET 612416 ALPRAZOLAM Inactive AUGMENTIN 875-125 MG ORAL TABLET 1 tab by mouth twice daily with food AUGMENTIN 875-125 MG ORAL TABLET 835883 AMOXICILLIN-POT CLAVULANATE Inactive ALPRAZOLAM 0.5 MG ORAL TABLET 1 tab every 6hrs as needed ALPRAZOLAM 0.5 MG ORAL TABLET 370294 ALPRAZOLAM Inactive SPIRONOLACTONE 25 MG ORAL TABLET 0.5 tablet by mouth daily 09/09 SPIRONOLACTONE 25 MG ORAL TABLET 818834 SPIRONOLACTONE Inactive ACCU-CHEK KEYONA PLUS w/Device KIT [...] times daily as needed ACCU-CHEK FASTCLIX LANCETS 41902768002 LANCETS Inactive TRAMADOL HCL 50 MG ORAL TABLET 1 tablets every 6 hours as needed for pain TRAMADOL HCL 50 MG ORAL TABLET 683156 TRAMADOL HCL Inactive VENLAFAXINE HCL 75 MG ORAL TABLET 1 po BID VENLAFAXINE HCL 75 MG ORAL TABLET 207010 VENLAFAXINE HCL Inactive HYDROCODONE-ACETAMINOPHEN 5-500 MG ORAL TABLET take one po Q 4-6 hours prn HYDROCODONE-ACETAMINOPHEN 5-500 MG ORAL TABLET HYDROCODONE-ACETAMINOPHEN Inactive LORTAB 5-500 MG ORAL TABLET 1/2 to 1 tablet by mouth every 4 hours as needed for pain LORTAB 5-500 MG ORAL TABLET HYDROCODONE- ACETAMINOPHEN Inactive LAMISIL 250 MG ORAL TABLET 1 po qd LAMISIL 250 MG ORAL TABLET 035796 TERBINAFINE HCL Inactive VENLAFAXINE HCL 37.5 MG ORAL TABLET 1 po BID VENLAFAXINE HCL 37.5 MG ORAL TABLET 846646 VENLAFAXINE HCL Inactive CIPRO 500 MG ORAL TABLET 1 tablet by mouth twice daily CIPRO 500 MG ORAL TABLET 628499 CIPROFLOXACIN HCL Inactive VENLAFAXINE HCL 75 MG ORAL TABLET 1 po BID VENLAFAXINE HCL 75 MG ORAL TABLET 779353 VENLAFAXINE HCL Inactive SIMVASTATIN 40 MG ORAL TABLET Take one by mouth daily SIMVASTATIN 40 MG ORAL TABLET 613193 SIMVASTATIN Inactive OMEPRAZOLE 20 MG ORAL TABLET DELAYED RELEASE 1 PO 30 MIN BEFORE 1ST MEAL 2010 OMEPRAZOLE 20 MG ORAL TABLET DELAYED RELEASE 092152 OMEPRAZOLE Inactive FENOFIBRATE 145 MG ORAL TABLET 1 po qd FENOFIBRATE 145 MG ORAL TABLET 800549 FENOFIBRATE Inactive BACTRIM DS 800-160 MG ORAL TABLET 1 bid x 14 day start 09-28-13 BACTRIM DS 800-160 MG ORAL TABLET 882006 SULFAMETHOXAZOLE- TRIMETHOPRIM Inactive B-12 100 MCG ORAL TABLET Take one by mouth daily B-12 100 MCG ORAL TABLET CYANOCOBALAMIN Inactive GABAPENTIN 100 MG ORAL CAPSULE 1 po bid GABAPENTIN 100 MG ORAL CAPSULE 975619 GABAPENTIN Inactive HYDROCODONE-ACETAMINOPHEN 5-325 MG ORAL TABLET 1 tab by mouth every 6 hours as needed for pain HYDROCODONE-ACETAMINOPHEN 5-325 MG ORAL TABLET 073909 HYDROCODONE-ACETAMINOPHEN Inactive CIPRO 500 MG ORAL TABLET 1 bid x 14 days start 09-28-13 CIPRO 500 MG ORAL TABLET 928630 CIPROFLOXACIN HCL Inactive ALIGN 4 MG ORAL [...] SODIUM 50 MG ORAL TABLET DELAYED RELEASE 001074 DICLOFENAC SODIUM Inactive PREDNISONE 20 MG ORAL TABLET 2 tablets once daily for 2 days, then 1 tablet once daily for 2 days PREDNISONE 20 MG ORAL TABLET 569912 PREDNISONE Inactive TRUEDRAW LANCING DEVICE Test twice a day dx 250.0 TRUEDRAW LANCING DEVICE LANCET DEVICES Inactive TRUERESULT BLOOD GLUCOSE w/Device KIT test blood sugar twice daily dx 250.00 TRUERESULT BLOOD GLUCOSE w/Device KIT BLOOD GLUCOSE MONITORING SUPPL Inactive FLONASE 50 MCG/ACT NASAL SUSPENSION 1 spray each nostril twice daily until bottle empty FLONASE 50 MCG/ACT NASAL SUSPENSION 9746905 FLUTICASONE PROPIONATE Inactive VENTOLIN HFA 108 (90 Base) MCG/ACT INHALATION AEROSOL SOLUTION 1-2 puffs every 4 hours if needed for cough/congestion VENTOLIN HFA 108 (90 Base) MCG/ACT INHALATION AEROSOL SOLUTION ALBUTEROL SULFATE Inactive REQUIP 2 MG ORAL TABLET Take one tablet at bedtime prn REQUIP 2 MG ORAL TABLET 117437 ROPINIROLE HCL Inactive SUPER B COMPLEX/VITAMIN C ORAL TABLET 1 qd SUPER B COMPLEX/VITAMIN C ORAL TABLET 17720314265 B COMPLEX-C Inactive TRUEDRAW LANCING DEVICE test blood sugar twice daily dx: 250.00 TRUEDRAW LANCING DEVICE LANCET DEVICES Inactive TRUETEST TEST IN VITRO STRIP test blood sugar twice daily. DX 250.0 TRUETEST TEST IN VITRO STRIP GLUCOSE BLOOD Inactive CYCLOBENZAPRINE HCL 10 MG ORAL TABLET 1 po TID PRN Muscle Spasm CYCLOBENZAPRINE HCL 10 MG ORAL TABLET 092849 CYCLOBENZAPRINE HCL Inactive DICLOFENAC SODIUM 50 MG ORAL TABLET DELAYED RELEASE 1 po BID PRN Pain DICLOFENAC SODIUM 50 MG ORAL TABLET DELAYED RELEASE 787410 DICLOFENAC SODIUM Inactive DICLOFENAC SODIUM 75 MG ORAL TABLET DELAYED RELEASE 1 po BID PRN Pain DICLOFENAC SODIUM 75 MG ORAL TABLET DELAYED RELEASE 070231 DICLOFENAC SODIUM Inactive NASONEX 50 MCG/ACT NASAL SUSPENSION 2 actuations in each nostril q day 07/15 NASONEX 50 MCG/ACT NASAL SUSPENSION 9684620 MOMETASONE FUROATE Inactive GUAIFENESIN ER 600 MG ORAL TABLET EXTENDED RELEASE 12 HOUR 1 twice a day as needed for congestion GUAIFENESIN ER 600 MG ORAL TABLET EXTENDED RELEASE 12 HOUR GUAIFENESIN Inactive AZITHROMYCIN 250 MG ORAL TABLET 2 po qd x 1, then 1 po qd x 4 AZITHROMYCIN 250 MG ORAL TABLET 999704 AZITHROMYCIN Inactive PROMETHAZINE-CODEINE 6.25-10 MG/5ML ORAL SYRUP 5ml po q6hr PRN Cough PROMETHAZINE-CODEINE 6.25-10 MG/5ML ORAL SYRUP 103089 PROMETHAZINE-CODEINE Inactive TRIAMCINOLONE ACETONIDE 0.1 % EXTERNAL OINTMENT Apply to affected areas TID for up to 2 weeks TRIAMCINOLONE ACETONIDE 0.1 % EXTERNAL OINTMENT 5724624 TRIAMCINOLONE ACETONIDE Inactive PREDNISONE 20 MG ORAL TABLET 2 tabs daily for 3 days, 1 tab daily for 3 days, 1/2 tab daily for 2 days PREDNISONE 20 MG ORAL TABLET 139001 PREDNISONE Inactive PREDNISONE 20 MG ORAL TABLET 2 tabs daily for 3 days, 1 tab daily for 3 days, 1/2 tab daily for 2 days PREDNISONE 20 MG ORAL TABLET 376967 PREDNISONE Inactive BACTRIM DS 800-160 MG ORAL TABLET 1 po BID x 7 days BACTRIM DS 800-160 MG ORAL TABLET 339037 SULFAMETHOXAZOLE-TRIMETHOPRIM Inactive ZITHROMAX 250 MG ORAL TABLET 2 po today, then 1 po q days 2-5 ZITHROMAX 250 MG ORAL TABLET 004929 AZITHROMYCIN Inactive PREDNISONE 20 MG ORAL TABLET 2 po qd x 5 days PREDNISONE 20 MG ORAL TABLET 909611 PREDNISONE Inactive Advance Directives Directive Description Start Date DISCUSSED WITH PATIENT -- NO DECISION MADE Immunizations Vaccine Administration Date Value Standard Description Seasonal influenza vaccine, injectable, containing preservative, for > 3 years old (Afluria, FluLaval, Fluzone, Fluvirin, Fluarix, Agriflu(>=18 yo)) Fluzone (>3 yrs.) [[id number]] Influenza, seasonal, injectable influenza immunization (Flu Vax) has been administered 02/22/2012 influenza virus vaccine, unspecified formulation Seasonal influenza vaccine, injectable, containing preservative, for > 3 years old (Afluria, FluLaval, Fluzone, Fluvirin, Fluarix, Agriflu(>=18 yo)) Fluzone (>3 yrs.) [[id number]] Influenza, seasonal, injectable Vital Signs Date Name [...] ... - Chemistry sodium, serum 141 mmol/L 198-943 0804/01/16 carbon dioxide, venous blood 28.3 mmol/L 21.0-32.0 [...] 6.7 % 4.3-6.0 cholesterol, serum 106 mg/dL 785-501 9848/01/16 triglyceride, serum, fasting 173 mg/dL 30-200 HDL [...] 4.3-6.0 Encounters Code Encounter Date Provider Facility CPT-21614 Level 3 Est. Patient 09:11:32 CDT Tu Landeros MD [facility] CPT-74466 Level 3 Est. Patient 10:13:19 COLLECTIONS AND ARCHIVES DIRECTOR Lesli Kellogg [facility] CPT-69985 Level 4 Est. Patient 13:42:02 COLLECTIONS AND ARCHIVES DIRECTOR Tu Landeros MD [facility] CPT-52025 Level 3 Est. Patient 14:20:36 CDT Tu Landeros MD [facility] CPT-80038 Level 4 Est. Patient 14:28:34 CDT Tu Landeros MD [facility] CPT-38619 Level 3 Est. Patient 13:33:09 CDT Tu Landeros MD [facility] CPT-06424 Level 4 Est. Patient 14:29:21 CDT Tu Landeros MD [facility] CPT-60969 Level 4 Est. Patient 09:08:17 COLLECTIONS AND ARCHIVES DIRECTOR Tu Landeros MD [facility] CPT-62336 Level 4 Est. Patient 14:40:19 CDT Tu Landeros MD [facility] CPT-86350 Level 4 Est. Patient 14:06:04 COLLECTIONS AND ARCHIVES DIRECTOR Tu Landeros MD [facility] CPT-49632 Level 3 Est. Patient 14:05:18 COLLECTIONS AND ARCHIVES DIRECTOR Tu Landeros MD [facility] CPT-48938 Level 3 Est. Patient 10:06:54 COLLECTIONS AND ARCHIVES DIRECTOR Miranda Farah GRIP ASSEMBLER [facility] CPT-06984 Level 4 Est. Patient 13:50:18 COLLECTIONS AND ARCHIVES DIRECTOR [facility] Level [facility] Est. Patient 10:30:04 CDT Tu Landeros MD [facility] CPT-72593 Level 4 Est. Patient 11:03:38 CDT Tu Landeros MD [facility] CPT-09931 Level 3 Est. Patient 10:20:44 CDT Fab Morales DO [facility] CPT-73069 Level 4 Est. Patient 14:38:57 CDT Tu Landeros MD [facility] CPT-30886 Level 4 Est. Patient 14:27:39 COLLECTIONS AND ARCHIVES DIRECTOR Tu Landeros MD [facility] CPT-12648 Level 4 Est. Patient 09:45:25 CDT Tu Landeros MD [facility] CPT-29054 Level 4 Est. Patient 09:05:20 COLLECTIONS AND ARCHIVES DIRECTOR Tu Landeros MD [facility] CPT-17441 Level 4 Est. Patient 14:09:06 CDT Tu Landeros MD [facility] CPT-13067 Level 3 Est. Patient 13:36:54 CDT Tu Landeros MD [facility] CPT-07211 Level 3 Est. Patient 08:59:14 CDT Tu Landeros MD [facility] CPT-17023 Level 3 Est. Patient 13:48:35 CDT Fab Morales DO [facility] CPT-93318 Level 4 Est. Patient 10:05:48 CDT Tu Landeros MD [facility] CPT-76540 Level 3 Est. Patient 13:38:42 CDT Marek BANKS [facility] CPT-12179 Level 5 Est. Patient 08:08:39 CDT Jerrica FRANCIS [facility] CPT-47874 Level 4 Est. Patient 14:23:38 CDT Tu Landeros MD [facility] CPT-28416 Level 3 Est. Patient 11:44:04 CDT Tu Landeros MD [facility] CPT-43094 Level 3 Est. Patient 11:03:20 COLLECTIONS AND ARCHIVES DIRECTOR Tu Landeros MD [facility] CPT-17765 Level 3 Est. Patient 11:03:14 COLLECTIONS AND ARCHIVES DIRECTOR Tu Landeros MD [facility] CPT-63498 Level 3 Est. Patient 12:42:49 CDT Tu Landeros MD [facility] CPT-09095 Level 3 Est. Patient 11:52:06 CDT Tu Landeros MD [facility] CPT-88337 Level 3 Est. Patient 13:58:11 CDT Tu Landeros MD [facility] CPT-55049 Level 3 Est. Patient 17:50:07 CDT Fab Morales DO [facility] CPT-18801 Level 3 Est. Patient 12:06:29 CDT Elvira Cervantes MD, PhD [facility] CPT-42892 Level 3 Est. Patient 15:50:32 CDT Tu Landeros MD [facility] CPT-86779 Level 4 Est. Patient 16:08:29 CDT Tu Landeros MD [facility] CPT-91252 Level 3 Est. Patient 16:04:19 CDT Tu Landeros MD [facility] CPT-60149 Level 3 Est. Patient 11:22:30 COLLECTIONS AND ARCHIVES DIRECTOR Tu Landeros MD [facility] CPT-87633 Level 4 Est. Patient 16:24:02 COLLECTIONS AND ARCHIVES DIRECTOR Tu Landeros MD [facility] CPT-51067 Level 3 Est. Patient 17:21:23 COLLECTIONS AND ARCHIVES DIRECTOR Tu Landeros MD [facility] Procedures Code Procedure Name Date Entry Date Standard Description CPT-57826 Shoulder, right, comp min 2V - XRAY USE ONLY 13:50:22 CDT CPT-G0009 Administration of Pneumococcal Vaccine 15:08:26 CDT CPT-71717 Prevnar 13 Intramuscular Suspension 15:08:26 CDT 10/08 CPT-G0439 Subsequent Annual Wellness Exam 14:29:22 CDT CPT-67142 Venipuncture Draw Fee 13:15:35 CDT CPT-77066 Magnesium - LAB USE ONLY 11:14:20 COLLECTIONS AND ARCHIVES DIRECTOR CPT-85962 Lipid - LAB USE ONLY 11:14:20 COLLECTIONS AND ARCHIVES DIRECTOR CPT-69578 HGBA1C - LAB USE ONLY 11:14:20 COLLECTIONS AND ARCHIVES DIRECTOR CPT-40889 CMP - LAB USE ONLY 11:14:19 COLLECTIONS AND ARCHIVES DIRECTOR CPT-40247 CBC - LAB USE ONLY 11:14:19 COLLECTIONS AND ARCHIVES DIRECTOR CPT-30634 Venipuncture Draw Fee 11:14:18 COLLECTIONS AND ARCHIVES DIRECTOR CPT-64595 First Vx - Ix admin for Medicare patients 16:46:52 CDT CPT-65810 Fluzone Preservative Free Intramuscular Suspension 16:46 :51 CDT CPT-08809 CBC - LAB USE ONLY 17:14:46 CDT CPT-32050 HGBA1C - LAB USE ONLY 17:14:46 CDT CPT-31287 Venipuncture Draw Fee 17:14:46 CDT CPT-G0438 Initial Annual Wellness Exam 14:13:04 CDT CPT-66973 Breathing Tx 10:06:54 COLLECTIONS AND ARCHIVES DIRECTOR CPT-26919 Postop F/U Visit 10:02:45 CDT CPT-LR Lesion Removal 09:02:56 CDT CPT-JTINJ Asp/Joint Injection 15:51:27 COLLECTIONS AND ARCHIVES DIRECTOR CPT-OV Office Visit 15:52:02 COLLECTIONS AND ARCHIVES DIRECTOR CPT-OV Office Visit 15:45:11 CDT CPT-000 Give Zostavax 14:09:06 CDT CPT-31819 Administration single or combination vaccine inc oral 15 :19:04 CDT CPT-12077 Zoster Vaccine (Zostavax) 15:19:04 CDT CPT-70669 Administration single or combination vaccine inc oral 20 :51:03 CDT CPT-15635 Influenza split virus > age 3 20:51:03 CDT CPT-07713 No Charge Offi Visit 14:52:03 CDT CPT-OV Office Visit 14:57:43 CDT CPT-OV Office Visit 15:22:32 CDT CPT-61014 Administration single or combination vaccine inc oral 11 :33:15 CDT CPT-61380 Influenza split virus > age 3 11:33:15 CDT
--- OUTSIDE RECORDS SUMMARY | 2018-04-25 14:04 | XMS REPORT | Clinical Summary ---
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 Tessa Landeros MD ONYCHOMYCOSIS ICD-110.1 Tesas Landeros MD [...] hours if needed for cough/congestion ALBUTEROL SULFATE 84627390974 No Longer Active Ambika Aden APRN Active ZITHROMAX 250 MG TAB 2 po today, then 1 po q days 2-5 AZITHROMYCIN 05370011660 No Longer Active Miranda Suresh APRN Active METFORMIN HCL 1000 MG TABS 1 tablet by mouth twice daily METFORMIN HCL 80669944377 Active Tu Landeros MD Active FLONASE 50 MCG/ACT SUSP 1 spray each nostril twice daily until bottle empty FLUTICASONE PROPIONATE 95401181351 No Longer Active Tu Landeros MD Active COLACE 100 MG CAP 1 po BID PRN Constipation DOCUSATE SODIUM 12358200076 Active Tu Landeros MD Active SIMVASTATIN 40 MG TABS 0.5 tab daily at bedtime SIMVASTATIN 72505875310 Active Tu Landeros MD Active TRUERESULT BLOOD GLUCOSE W/DEVICE KIT test blood sugar twice daily dx 250.00 BLOOD GLUCOSE MONITORING SUPPL 62444344639 No Longer Active Tu Landeros MD Active TRUEDRAW LANCING DEVICE MISC Test twice a day dx 250.0 LANCET DEVICES 86883541132 No Longer Active Tu Landeros MD Active PREDNISONE 20 MG TAB 2 tablets once daily for 2 days, then 1 tablet once daily for 2 days PREDNISONE 40446967562 No Longer Active Tu Landeros MD Active DICLOFENAC SODIUM 50 MG TBEC 1 tablet by mouth three times a day as needed DICLOFENAC SODIUM 40484315576 No Longer Active Fab Morales DO Active TRUEDRAW LANCING DEVICE MISC test blood sugar twice daily dx: 250.00 LANCET DEVICES 84591006679 Active Tu Landeros MD Active TRUETEST TEST INVITR STRP test blood sugar twice daily. DX 250.0 GLUCOSE BLOOD 84271679794 Active Tu Landeros MD Active EMBRACE BLOOD GLUCOSE TEST STRP test blood sugar twice daily DX 250.0 2014 GLUCOSE BLOOD 65962754923 No Longer Active Tu Landeros MD Active TRUETEST TEST STRP test blood sugar three times daily dx: 250.00 GLUCOSE BLOOD 12420169913 No Longer Active Suzebianca VOGEL Active TRUERESULT BLOOD GLUCOSE W/DEVICE KIT use to test blood sugar tid dx: 250.00 BLOOD GLUCOSE MONITORING SUPPL 03598910833 No Longer Active Suze Corey RMA Active ALIGN 4 MG CAPS 1 tid PROBIOTIC PRODUCT 53582174057 No Longer Active Shaun Sy MD Active CIPRO 500 MG TABS 1 bid x 14 days start 09-28-13 CIPROFLOXACIN HCL 50010867584 No Longer Active Shaun Sy MD Active TRAMADOL HCL 50 MG TABS 1-2 tablets every 6 hours as needed for pain TRAMADOL HCL 48568959837 Active Tu Landeros MD Active HYDROCODONE-ACETAMINOPHEN 5-325 MG TABS 1 tab by mouth every 6 hours as needed for pain HYDROCODONE-ACETAMINOPHEN 69759431930 No Longer Active Tu Landeros MD Active OMEPRAZOLE 20 MG CPDR 1 po q a.m. OMEPRAZOLE 07022204318 Active Tu Landeros MD Active GABAPENTIN 100 MG CAPS 1 po bid GABAPENTIN 91738478253 No Longer Active Tu Landeros MD Active B-12 100 MCG TABS Take one by mouth daily CYANOCOBALAMIN 85557414786 No Longer Active Tu Landeros MD Active GABAPENTIN 100 MG CAPS by mouth twice a day GABAPENTIN 10929012087 Active Tiffanie Doyle Active BACTRIM DS 800-160 MG TABS 1 bid x 14 day start 14 SULFAMETHOXAZOLE-TRIMETHOPRIM 10944336359 No Longer Active Tu Landeros MD Active CARVEDILOL 12.5 MG TABS 1 po BID CARVEDILOL 35121213478 Active Kofilaura Fatumashahid [employer] SOFTWARE ENGINEER Active SUPER B COMPLEX/VITAMIN C TABS 1 qd B COMPLEX-C 24735304627 Active JASPREET Perez Active TRILIPIX 135 MG CPDR 1 q hs CHOLINE FENOFIBRATE 83809829087 Active Tu Landeros MD Active FENOFIBRATE 145 MG TABS 1 po qd FENOFIBRATE 00185520931 No Longer Active JASPREET Perez Active OMEPRAZOLE 20 MG TBEC 1 PO 30 MIN BEFORE 1ST MEAL OMEPRAZOLE 08888486090 No Longer Active JASPREET Perez Active SIMVASTATIN 40 MG TABS Take one by mouth daily SIMVASTATIN 04156999343 No Longer Active JASPREET Perez Active VENLAFAXINE HCL 37.5 MG TABS 1 bid VENLAFAXINE HCL 22441281415 Active Tu Landeros MD Active VENLAFAXINE HCL 75 MG TABS 1 po BID VENLAFAXINE HCL 19282471401 No Longer Active JASPREET Perez Active CIPRO 500 MG TAB 1 tablet by mouth twice daily CIPROFLOXACIN HCL 62143199287 No Longer Active Tu Landeros MD Active VENLAFAXINE HCL 37.5 MG TABS 1 po BID VENLAFAXINE HCL 26859624974 No Longer Active Suze Corey RMA Active LAMISIL 250 MG TAB 1 po qd TERBINAFINE HCL 77227390437 No Longer Active Tu Landeros MD Active LORTAB 5 5-500 MG TABS 1/2 to 1 tablet by mouth every 4 hours as needed for pain HYDROCODONE-ACETAMINOPHEN 37613238715 No Longer Active Tu Landeros MD Active ENALAPRIL MALEATE 20 MG TABS 1.5 po qd ENALAPRIL MALEATE 05789804757 Active Tu Landeros MD Active HYDROCODONE-ACETAMINOPHEN 5-500 MG TABS take one po Q 4-6 hours prn HYDROCODONE-ACETAMINOPHEN 41097694431 No Longer Active Tu Landeros MD Active BACTRIM DS 800-160 MG TABS 1 po BID x 7 days SULFAMETHOXAZOLE-TRIMETHOPRIM 99753761415 No Longer Active Tu Landeros MD Active VENLAFAXINE HCL 75 MG TABS 1 po BID VENLAFAXINE HCL 04785667985 No Longer Active Elvira Cervantes MD PhD Active TRAMADOL HCL 50 MG TABS 1 tablets every 6 hours as needed for pain TRAMADOL HCL 54507766088 No Longer Active Tu Landeros MD Active ACCU-CHEK FASTCLIX LANCETS MISC Use to check bloodsugar three times daily as needed LANCETS 04567507048 No Longer Active Tu Landeros MD Active ACCU-CHEK KEYONA PLUS STRP Use for testing bloodsugars three times daily as needed GLUCOSE BLOOD 23309594662 No Longer Active Tu Landeros MD Active ACCU-CHEK KEYONA PLUS W/DEVICE KIT Use for testing bloodsugars three times daily as needed BLOOD GLUCOSE MONITORING SUPPL 92078395531 No Longer Active Tu Landeros MD Active SPIRONOLACTONE 25 MG TAB 0.5 tablet by mouth daily SPIRONOLACTONE 05432657368 No Longer Active Tu Landeros MD Active ALPRAZOLAM 0.5 MG TABS 1 tab every 6hrs as needed ALPRAZOLAM 06093443760 No Longer Active Tu Landeros MD Active AUGMENTIN 875-125 MG TAB 1 tab by mouth twice daily with food AMOXICILLIN-POT CLAVULANATE 06737295564 No Longer Active Tu Landeros MD Active PREDNISONE 20 MG TAB 2 tabs daily for 3 days, 1 tab daily for 3 days, 1/2 tab daily for 2 days PREDNISONE 93958785550 No Longer Active Tu Landeros MD Active XANAX 0.5 MG TABS 1 tablet every 6 hrs prn ALPRAZOLAM 36636291976 No Longer Active Tu Landeros MD Active PREDNISONE 20 MG TAB 2 tabs daily for 3 days, 1 tab daily for 3 days, 1/2 tab daily for 2 days PREDNISONE 48598235533 No Longer Active Tu Landeros MD Active TRIAMCINOLONE ACETONIDE 0.1 % OINT Apply to affected areas TID for up to 2 weeks TRIAMCINOLONE ACETONIDE 10182991509 No Longer Active Tu Landeros MD Active LORTAB 5 5-500 MG TABS 1/2 to 1 tablet by mouth every 4 hours as needed for pain HYDROCODONE-ACETAMINOPHEN 25677271446 No Longer Active Tu Landeros MD Active MULTIVITAMINS TABS Take one by mouth daily MULTIPLE VITAMIN 19055859776 No Longer Active Tu Landeros MD Active MELATONIN 5 MG TABS Take one by mouth daily MELATONIN 91277819878 No Longer Active Tu Landeros MD Active SOMA 350 MG TAB 1 po q 6 hours prn spasm CARISOPRODOL 94996321807 No Longer Active Tu Landeros MD Active MECLIZINE HCL 25 MG CHEW TAB 1 four times a day as needed for dizziness 08/05 MECLIZINE HCL 82119147727 No Longer Active Fab Morales DO Active ANGEL BREEZE 2 TEST DISK test tid prn GLUCOSE BLOOD 59363957048 No Longer Active Negra Scott RN Active REGLAN 10 MG TAB 1 po TID PRN Nausea METOCLOPRAMIDE HCL 75827901791 No Longer Active Tu Landeros MD Active METFORMIN HCL 500 MG TABS 1 PO BID METFORMIN HCL 74418203910 No Longer Active Tu Landeros MD Active AMBIEN 10 MG TAB 1 tab by mouth at bedtime as needed for sleep ZOLPIDEM TARTRATE 27119734901 No Longer Active Tu Landeros MD Active FLUOXETINE HCL 40 MG CAPS 1 po q day FLUOXETINE HCL 15904473547 No Longer Active Mayra Terry Active FISH OIL 1000 MG CAPS Take one by mouth daily OMEGA-3 FATTY ACIDS 96958853990 Active Tu Landeros MD Active GLUCOSAMINE 500 MG TABS Take 2 tab po qd GLUCOSAMINE 32179646777 Active Tu Landeros MD Active TRILIPIX 135 MG CPDR 1 po qd CHOLINE FENOFIBRATE 75678901103 No Longer Active Tu Landeros MD Active ASPIRIN 81 MG CHEW TAB 1 tablet by mouth daily ASPIRIN 27919474606 Active Tu Landeros MD Active FUROSEMIDE 40 MG TAB 1 tablet by mouth daily FUROSEMIDE 35273578846 Active Tu Landeros MD Active REQUIP 2 MG TABS Take one tablet at bedtime prn ROPINIROLE HCL 13264307859 Active Tu Landeros MD Active KLOR-CON 10 10 MEQ CR-TABS TAKE 2 TABS DAILY POTASSIUM CHLORIDE 19229893228 Active Tu Landeros MD Active AMBIEN 10 MG TAB 1 tab by mouth at bedtime as needed for sleep AMBIEN 10 MG TAB 482361 ZOLPIDEM TARTRATE Inactive METFORMIN HCL 500 MG TABS 1 PO BID METFORMIN HCL 500 MG TABS 451459 METFORMIN HCL Inactive REGLAN 10 MG TAB 1 po TID PRN Nausea REGLAN 10 MG TAB 135781 METOCLOPRAMIDE HCL Inactive MECLIZINE HCL 25 MG CHEW TAB 1 four times a day as needed for dizziness 08/05 MECLIZINE HCL 25 MG CHEW TAB 013197 MECLIZINE HCL Inactive SOMA 350 MG TAB 1 po q 6 hours prn spasm SOMA 350 MG TAB 365272 CARISOPRODOL Inactive MELATONIN 5 MG TABS Take one by mouth daily MELATONIN 5 MG TABS 343592 MELATONIN Inactive MULTIVITAMINS TABS Take one by mouth daily MULTIVITAMINS TABS MULTIPLE VITAMIN Inactive LORTAB 5 5-500 MG TABS 1/2 to 1 tablet by mouth every 4 hours as needed for pain LORTAB 5 5-500 MG TABS HYDROCODONE- ACETAMINOPHEN Inactive XANAX 0.5 MG TABS 1 tablet every 6 hrs prn XANAX 0.5 MG TABS 416946 ALPRAZOLAM Inactive AUGMENTIN 875-125 MG TAB 1 tab by mouth twice daily with food AUGMENTIN 875-125 MG TAB 168819 AMOXICILLIN-POT CLAVULANATE Inactive ALPRAZOLAM 0.5 MG TABS 1 tab every 6hrs as needed ALPRAZOLAM 0.5 MG TABS 715441 ALPRAZOLAM Inactive SPIRONOLACTONE 25 MG TAB 0.5 tablet by mouth daily SPIRONOLACTONE 25 MG TAB 625870 SPIRONOLACTONE Inactive ACCU-CHEK KEYONA PLUS W/DEVICE KIT Use for testing bloodsugars three times daily as needed ACCU-CHEK KEYONA PLUS W/DEVICE KIT BLOOD GLUCOSE MONITORING SUPPL Inactive ACCU-CHEK KEYONA PLUS STRP Use for testing bloodsugars three times daily as needed ACCU-CHEK KEYONA PLUS STRP GLUCOSE BLOOD Inactive ACCU-CHEK FASTCLIX LANCETS MISC Use to check bloodsugar three times daily as needed ACCU-CHEK FASTCLIX LANCETS MISC 58753795575 LANCETS Inactive TRAMADOL HCL 50 MG TABS 1 tablets every 6 hours as needed for pain TRAMADOL HCL 50 MG TABS 333128 TRAMADOL HCL Inactive VENLAFAXINE HCL 75 MG TABS 1 po BID VENLAFAXINE HCL 75 MG TABS 204472 VENLAFAXINE HCL Inactive HYDROCODONE-ACETAMINOPHEN 5-500 MG TABS take one po Q 4-6 hours prn HYDROCODONE-ACETAMINOPHEN 5-500 MG TABS HYDROCODONE- ACETAMINOPHEN Inactive LORTAB 5 5-500 MG TABS 1/2 to 1 tablet by mouth every 4 hours as needed for pain LORTAB 5 5-500 MG TABS HYDROCODONE- ACETAMINOPHEN Inactive LAMISIL 250 MG TAB 1 po qd LAMISIL 250 MG TAB 004398 TERBINAFINE HCL Inactive VENLAFAXINE HCL 37.5 MG TABS 1 po BID VENLAFAXINE HCL 37.5 MG TABS 371080 VENLAFAXINE HCL Inactive CIPRO 500 MG TAB 1 tablet by mouth twice daily CIPRO 500 MG TAB 558419 CIPROFLOXACIN HCL Inactive VENLAFAXINE HCL 75 MG TABS 1 po BID VENLAFAXINE HCL 75 MG TABS 059180 VENLAFAXINE HCL Inactive SIMVASTATIN 40 MG TABS Take one by mouth daily SIMVASTATIN 40 MG TABS 194969 SIMVASTATIN Inactive OMEPRAZOLE 20 MG TBEC 1 PO 30 MIN BEFORE 1ST MEAL OMEPRAZOLE 20 MG TBEC 702460 OMEPRAZOLE Inactive FENOFIBRATE 145 MG TABS 1 po qd FENOFIBRATE 145 MG TABS 852017 FENOFIBRATE Inactive BACTRIM DS 800-160 MG TABS 1 bid x 14 day start 09-28-13 BACTRIM DS 800-160 MG TABS 750311 SULFAMETHOXAZOLE-TRIMETHOPRIM Inactive B-12 100 MCG TABS Take one by mouth daily B-12 100 MCG TABS CYANOCOBALAMIN Inactive GABAPENTIN 100 MG CAPS 1 po bid GABAPENTIN 100 MG CAPS 432064 GABAPENTIN Inactive HYDROCODONE-ACETAMINOPHEN 5-325 MG TABS 1 tab by mouth every 6 hours as needed for pain HYDROCODONE-ACETAMINOPHEN 5-325 MG TABS 572032 HYDROCODONE-ACETAMINOPHEN Inactive CIPRO 500 MG TABS 1 bid x 14 days start 09-28-13 CIPRO 500 MG TABS 072425 CIPROFLOXACIN HCL Inactive ALIGN 4 MG CAPS [...] as needed DICLOFENAC SODIUM 50 MG TBEC 973519 DICLOFENAC SODIUM Inactive PREDNISONE 20 MG TAB 2 tablets once daily for 2 days, then 1 tablet once daily for 2 days PREDNISONE 20 MG TAB 755368 PREDNISONE Inactive TRUEDRAW LANCING DEVICE MISC Test [...] 2 weeks TRIAMCINOLONE ACETONIDE 0.1 % OINT 9791851 TRIAMCINOLONE ACETONIDE Inactive PREDNISONE 20 MG TAB 2 tabs daily for 3 days, 1 tab daily for 3 days, 1/2 tab daily for 2 days PREDNISONE 20 MG TAB 175529 PREDNISONE Inactive PREDNISONE 20 MG TAB 2 tabs daily for 3 days, 1 tab daily for 3 days, 1/2 tab daily for 2 days PREDNISONE 20 MG TAB 482121 PREDNISONE Inactive BACTRIM DS 800-160 MG TABS 1 po BID x 7 days BACTRIM DS 800-160 MG TABS 668354 SULFAMETHOXAZOLE-TRIMETHOPRIM Inactive ZITHROMAX 250 MG TAB 2 po today, then 1 po q days 2-5 ZITHROMAX 250 MG TAB 2304564 AZITHROMYCIN Inactive Advance Directives Directive Description Start Date DISCUSSED WITH PATIENT -- NO DECISION MADE Immunizations Vaccine Administration Date Value Standard Description Seasonal influenza vaccine, injectable, containing preservative, for > 3 years old (Afluria, FluLaval, Fluzone, Fluvirin, Fluarix, Agriflu(>=18 yo)) Fluzone (>3 yrs.) [[id number]] Influenza, seasonal, injectable influenza immunization (Flu Vax) has been administered 02/22/2012 influenza virus vaccine, unspecified formulation Seasonal influenza vaccine, injectable, containing preservative, for > 3 years old (Afluria, FluLaval, Fluzone, Fluvirin, Fluarix, Agriflu(>=18 yo)) Fluzone (>3 yrs.) [[id number]] Influenza, seasonal, injectable Vital Signs Date Name [...] mg/g mg/g{creat} 0-29 sodium, serum 142 mmol/L 708-313 8556/10/08 potassium, serum 4.5 mmol/L 3.5-5.2 chloride, serum [...] Panel - Chemistry cholesterol, serum 124 mg/dL 742-271 4810/01/12 triglyceride, serum, fasting 135 mg/dL 30-200 HDL cholesterol, serum 41 mg/dL 32-96 LDL cholesterol, serum 56 mg/dL 0-130 sodium, serum 140 mmol/L 228-008 0613/01/12 carbon dioxide, venous blood 27.7 mmol/L 21.0-32.0 potassium, serum 4.5 mmol/L 3.5-5.2 chloride, serum 104 mmol/L 98-107 blood glucose 139 mg/dL 65-110 urea nitrogen, blood 16 mg/dL 7-18 alanine aminotransferase (SGPT), serum 32 U/L 12-78 aspartate aminotransferase (SGOT), serum 25 U/L 15-37 calcium, serum 9.1 mg/dL 8.5-10.1 bilirubin, serum, total 0.50 mg/dL 0.00-1.00 Encounters Code Encounter Date Provider Facility CPT-43674 Level 4 Est. Patient 14:06:04 CUT PRESSMAN Tu Landeros MD [facility] CPT-17281 Level 3 Est. Patient 14:05:18 CUT PRESSMAN Tu Landeros MD [facility] CPT-73333 Level 3 Est. Patient 10:06:54 CUT PRESSMAN Miranda Suresh APRN [facility] CPT-66906 Level 4 Est. Patient 13:50:18 CUT PRESSMAN Tu Landeros MD [facility] CPT-17137 Level 3 Est. Patient 10:30:04 CDT Tu Landeros MD [facility] CPT-12377 Level 4 Est. Patient 11:03:38 CDT Tu Landeros MD [facility] CPT-33379 Level 3 Est. Patient 10:20:44 CDT Fab Morales DO [facility] CPT-86151 Level 4 Est. Patient 14:38:57 CDT Tu Landeros MD [facility] CPT-64198 Level 4 Est. Patient 14:27:39 CUT PRESSMAN Tu Landeros MD [facility] CPT-98693 Level 4 Est. Patient 09:45:25 CDT Tu Landeros MD [facility] CPT-17049 Level 4 Est. Patient 09:05:20 CUT PRESSMAN Tu Landeros MD [facility] CPT-84395 Level 4 Est. Patient 14:09:06 CDT Tu Landeros MD [facility] CPT-16648 Level 3 Est. Patient 13:36:54 CDT Tu Landeros MD [facility] CPT-30760 Level 3 Est. Patient 08:59:14 CDT Tu Landeros MD [facility] CPT-16963 Level 3 Est. Patient 13:48:35 CDT Fab Morales DO [facility] CPT-95463 Level 4 Est. Patient 10:05:48 CDT Tu Landeros MD [facility] CPT-31885 Level 3 Est. Patient 13:38:42 CDT Marek BANKS [facility] CPT-85619 Level 5 Est. Patient 08:08:39 CDT Jerrica FRANCIS [facility] CPT-41686 Level 4 Est. Patient 14:23:38 CDT Tu Landeros MD [facility] CPT-14215 Level 3 Est. Patient 11:44:04 CDT uT Landeros MD [facility] CPT-14839 Level 3 Est. Patient 11:03:20 CUT PRESSMAN Tu Landeros MD [facility] CPT-09660 Level 3 Est. Patient 11:03:14 CUT PRESSMAN Tu Landeros MD [facility] CPT-52835 Level 3 Est. Patient 12:42:49 CDT Tu Landeros MD [facility] CPT-47269 Level 3 Est. Patient 11:52:06 CDT Tu Landeros MD [facility] CPT-88863 Level 3 Est. Patient 13:58:11 CDT Tu Landeros MD [facility] CPT-47181 Level 3 Est. Patient 17:50:07 CDT aFb Morales DO [facility] CPT-21769 Level 3 Est. Patient 12:06:29 CDT Elvira Cervantes MD PhD [facility] CPT-26690 Level 3 Est. Patient 15:50:32 CDT Tu Landeros MD [facility] CPT-59583 Level 4 Est. Patient 16:08:29 CDT Tu Landeros MD [facility] CPT-17357 Level 3 Est. Patient 16:04:19 CDT Tu Landeros MD [facility] CPT-13649 Level 3 Est. Patient 11:22:30 CUT PRESSMAN Tu Landeros MD [facility] CPT-02256 Level 4 Est. Patient 16:24:02 CUT PRESSMAN Tu Landeros MD [facility] CPT-58006 Level 3 Est. Patient 17:21:23 CUT PRESSMAN Tu Landeros MD [facility] Procedures Code Procedure Name Date Entry Date Standard Description CPT-G0438 Initial Annual Wellness Exam 14:13:04 CDT CPT-69367 Breathing Tx 10:06:54 CUT PRESSMAN CPT-46468 Postop F/U Visit 10:02:45 CDT CPT-LR Lesion Removal 09:02:56 CDT CPT-JTINJ Asp/Joint Injection 15:51:27 CUT PRESSMAN CPT-OV Office Visit 15:52:02 CUT PRESSMAN CPT-OV Office Visit 15:45:11 CDT CPT-000 Give Zostavax 14:09:06 CDT CPT-11599 Administration single or combination vaccine inc oral 15 :19:04 CDT CPT-53483 Zoster Vaccine (Zostavax) 15:19:04 CDT CPT-61634 Administration single or combination vaccine inc oral 20 :51:03 CDT CPT-19372 Influenza split virus > age 3 20:51:03 CDT CPT-37832 No Charge Offi Visit 14:52:03 CDT CPT-OV Office Visit 14:57:43 CDT CPT-OV Office Visit 15:22:32 CDT CPT-57343 Administration single or combination vaccine inc oral 11 :33:15 CDT CPT-44863 Influenza split virus > age 3 11:33:15 CDT
--- OUTSIDE RECORDS SUMMARY | 2018-04-25 14:05 | XMS REPORT | Clinical Summary ---
Author Author Admin, SACHI Clemons [facility] Address Unknown Phone Unavailable Allergies, Adverse Reactions, [...] of limb FREQUENCY, URINARY 788.41 Correction Elvira Cervantse MD PhD Urinary frequency FEVER UNSPECIFIED 780.60 [...] MD GASTROENTERITIS ICD-558.9 Inactive Tu Landeros MD FREQUENCY, URINARY ICD-788.41 [...] Inactive Tu Landeros MD 2012 SCIATICA ICD-724.3 Tessa Landeros MD 2012 ARTHRITIS ICD-716.90 Tessa Landeros MD KNEE PAIN ICD-719.46 Tessa Landeros MD CARPAL TUNNEL SYNDROME ICD-354.0 Tessa Landeros MD SHOULDER PAIN, LEFT ICD-719.41 Tessa Landeros MD LOCALIZED SUPERFICIAL SWELLING MASS OR LUMP ICD-782.2 Tessa Landeros MD CONTUSION OF UNSPECIFIED SITE ICD-924.9 Tessa Landeros MD ONYCHOMYCOSIS ICD-110.1 Tessa Landeros MD PRESSURE ULCER UNSPECIFIED SITE ICD-707.00 Tessa Landeros MD Upper respiratory infection, viral ICD-465.9 Tessa Sy MD Open wound of other and unspecified parts of trunk, complicated ICD-879.7 Tessa Landeros MD Knee pain, left, acute ICD-719.46 Tessa Landeros MD Ear pain, bilateral ICD-388.70 Tessa Landeros MD Sebaceous cyst ICD-706.2 Tessa Landeros MD Open wound of abdominal wall, anterior, complicated ICD-879.3 Tessa Landeros MD Hot flashes ICD-627.2 Tessa Landeros MD Medication List Medication Instructions Start Date Stop Date Generic Name NDC Status Provider Patient Instruction METFORMIN HCL 1000 MG TABS 1 tablet by mouth twice daily METFORMIN HCL 41958326848 Active Tu Landeros MD Active FLONASE 50 MCG/ACT SUSP 1 spray each nostril twice daily until bottle empty FLUTICASONE PROPIONATE 72492638456 No Longer Active Tu Landeros MD Active COLACE 100 MG CAP 1 po BID PRN Constipation DOCUSATE SODIUM 78340748004 Active Tu Landeros MD Active SIMVASTATIN 40 MG TABS 0.5 tab daily at bedtime SIMVASTATIN 66223871082 Active Tu Landeros MD Active TRUERESULT BLOOD GLUCOSE W/DEVICE KIT test blood sugar twice daily dx 250.00 BLOOD GLUCOSE MONITORING SUPPL 78687746464 No Longer Active Tu Landeros MD Active TRUEDRAW LANCING DEVICE MISC Test twice a day dx 250.0 LANCET DEVICES 85743225009 No Longer Active Tu Landeros MD Active PREDNISONE 20 MG TAB 2 tablets once daily for 2 days, then 1 tablet once daily for 2 days PREDNISONE 60736034264 No Longer Active Tu Landeros MD Active DICLOFENAC SODIUM 50 MG TBEC 1 tablet by mouth three times a day as needed DICLOFENAC SODIUM 47285332534 No Longer Active Fab Morales DO Active TRUEDRAW LANCING DEVICE MISC test blood sugar twice daily dx: 250.00 LANCET DEVICES 56646216479 Active Tu Landeros MD Active TRUETEST TEST INVITR STRP test blood sugar twice daily. DX 250.0 GLUCOSE BLOOD 70815599464 Active Tu Landeros MD Active EMBRACE BLOOD GLUCOSE TEST STRP test blood sugar twice daily DX 250.0 2014 GLUCOSE BLOOD 59579578997 No Longer Active Tu Landeros MD Active TRUETEST TEST STRP test blood sugar three times daily dx: 250.00 GLUCOSE BLOOD 12409056238 No Longer Active Suze VOGEL Active TRUERESULT BLOOD GLUCOSE W/DEVICE KIT use to test blood sugar tid dx: 250.00 BLOOD GLUCOSE MONITORING SUPPL 48540937257 No Longer Active Suze Nicole RMA Active ALIGN 4 MG CAPS 1 tid PROBIOTIC PRODUCT 02612282441 No Longer Active Shaun Sy MD Active CIPRO 500 MG TABS 1 bid x 14 days start 09-28-13 CIPROFLOXACIN HCL 96597577955 No Longer Active Shaun Sy MD Active TRAMADOL HCL 50 MG TABS 1-2 tablets every 6 hours as needed for pain TRAMADOL HCL 55606329725 Active Tu Landeros MD Active HYDROCODONE-ACETAMINOPHEN 5-325 MG TABS 1 tab by mouth every 6 hours as needed for pain HYDROCODONE-ACETAMINOPHEN 06636505431 No Longer Active Tu Landeros MD Active OMEPRAZOLE 20 MG CPDR 1 po q a.m. OMEPRAZOLE 87198189668 Active Tu Landeros MD Active GABAPENTIN 100 MG CAPS 1 po bid GABAPENTIN 42180584959 No Longer Active Tu Landeros MD Active B-12 100 MCG TABS Take one by mouth daily CYANOCOBALAMIN 87709524575 No Longer Active Tu Landeros MD Active GABAPENTIN 100 MG CAPS by mouth twice a day GABAPENTIN 31124793264 Active Tu Landeros MD Active BACTRIM DS 800-160 MG TABS 1 bid x 14 day start 09-28-13 SULFAMETHOXAZOLE-TRIMETHOPRIM 09066688332 No Longer Active Tu Landeros MD Active CARVEDILOL 12.5 MG TABS 1 po BID CARVEDILOL 55604014806 Active uT Landeros MD Active SUPER B COMPLEX/VITAMIN C TABS 1 qd B COMPLEX-C 24571593260 Active JASPREET Perez Active TRILIPIX 135 MG CPDR 1 q hs CHOLINE FENOFIBRATE 88343783782 Active Tu Landeros MD Active FENOFIBRATE 145 MG TABS 1 po qd FENOFIBRATE 49937213232 No Longer Active JASPREET Perez Active OMEPRAZOLE 20 MG TBEC 1 PO 30 MIN BEFORE 1ST MEAL OMEPRAZOLE 20752648830 No Longer Active JASPREET Perez Active SIMVASTATIN 40 MG TABS Take one by mouth daily SIMVASTATIN 90319835549 No Longer Active Gustavo JASPREET Green Active VENLAFAXINE HCL 37.5 MG TABS 1 bid VENLAFAXINE HCL 86441352306 Active Tu Landeros MD Active VENLAFAXINE HCL 75 MG TABS 1 po BID VENLAFAXINE HCL 26785835659 No Longer Active JASPREET Perez Active CIPRO 500 MG TAB 1 tablet by mouth twice daily CIPROFLOXACIN HCL 51562910264 No Longer Active Tu Landeros MD Active VENLAFAXINE HCL 37.5 MG TABS 1 po BID VENLAFAXINE HCL 69601504142 No Longer Active Suzebianca NUNOA Active LAMISIL 250 MG TAB 1 po qd TERBINAFINE HCL 99494001842 No Longer Active Tu Landeros MD Active LORTAB 5 5-500 MG TABS 1/2 to 1 tablet by mouth every 4 hours as needed for pain HYDROCODONE-ACETAMINOPHEN 50395450032 No Longer Active Tu Landeros MD Active ENALAPRIL MALEATE 20 MG TABS 1.5 po qd ENALAPRIL MALEATE 35598702598 Active Tu Landeros MD Active HYDROCODONE-ACETAMINOPHEN 5-500 MG TABS take one po Q 4-6 hours prn HYDROCODONE-ACETAMINOPHEN 30242362948 No Longer Active Tu Landeros MD Active BACTRIM DS 800-160 MG TABS 1 po BID x 7 days SULFAMETHOXAZOLE-TRIMETHOPRIM 52453622062 No Longer Active Tu Landeros MD Active VENLAFAXINE HCL 75 MG TABS 1 po BID VENLAFAXINE HCL 05314008121 No Longer Active Elvira Cervantes MD PhD Active TRAMADOL HCL 50 MG TABS 1 tablets every 6 hours as needed for pain TRAMADOL HCL 89987582822 No Longer Active Tu Landeros MD Active ACCU-CHEK FASTCLIX LANCETS MISC Use to check bloodsugar three times daily as needed LANCETS 24406158827 No Longer Active Tu Landeros MD Active ACCU-CHEK KEYONA PLUS STRP Use for testing bloodsugars three times daily as needed GLUCOSE BLOOD 83093584549 No Longer Active Tu Landeros MD Active ACCU-CHEK KEYONA PLUS W/DEVICE KIT Use for testing bloodsugars three times daily as needed BLOOD GLUCOSE MONITORING SUPPL 42588961226 No Longer Active Tu Landeros MD Active SPIRONOLACTONE 25 MG TAB 0.5 tablet by mouth daily SPIRONOLACTONE 64666866097 No Longer Active Tu Landeros MD Active ALPRAZOLAM 0.5 MG TABS 1 tab every 6hrs as needed ALPRAZOLAM 75888372184 No Longer Active Tu Landeros MD Active AUGMENTIN 875-125 MG TAB 1 tab by mouth twice daily with food AMOXICILLIN-POT CLAVULANATE 70684062116 No Longer Active Tu Landeros MD Active PREDNISONE 20 MG TAB 2 tabs daily for 3 days, 1 tab daily for 3 days, 1/2 tab daily for 2 days PREDNISONE 17692201517 No Longer Active Tu Landeros MD Active XANAX 0.5 MG TABS 1 tablet every 6 hrs prn ALPRAZOLAM 46747434415 No Longer Active Tu Landeros MD Active PREDNISONE 20 MG TAB 2 tabs daily for 3 days, 1 tab daily for 3 days, 1/2 tab daily for 2 days PREDNISONE 28116516742 No Longer Active Tu Landeros MD Active TRIAMCINOLONE ACETONIDE 0.1 % OINT Apply to affected areas TID for up to 2 weeks TRIAMCINOLONE ACETONIDE 52890410420 No Longer Active Tu Landeros MD Active LORTAB 5 5-500 MG TABS 1/2 to 1 tablet by mouth every 4 hours as needed for pain HYDROCODONE-ACETAMINOPHEN 88708115358 No Longer Active Tu Landeros MD Active MULTIVITAMINS TABS Take one by mouth daily MULTIPLE VITAMIN 56113623072 No Longer Active Tu Landeros MD Active MELATONIN 5 MG TABS Take one by mouth daily MELATONIN 58207150918 No Longer Active Tu Landeros MD Active SOMA 350 MG TAB 1 po q 6 hours prn spasm CARISOPRODOL 82727696635 No Longer Active Tu Landeros MD Active MECLIZINE HCL 25 MG CHEW TAB 1 four times a day as needed for dizziness 08/05 MECLIZINE HCL 59877407650 No Longer Active Fab Morales DO Active ANGEL BREEZE 2 TEST DISK test tid prn GLUCOSE BLOOD 51270440082 No Longer Active Negra Scott RN Active REGLAN 10 MG TAB 1 po TID PRN Nausea METOCLOPRAMIDE HCL 81538902951 No Longer Active Tu Landeros MD Active METFORMIN HCL 500 MG TABS 1 PO BID METFORMIN HCL 65583990112 No Longer Active Tu Landeros MD Active AMBIEN 10 MG TAB 1 tab by mouth at bedtime as needed for sleep ZOLPIDEM TARTRATE 90886553585 No Longer Active Tu Landeros MD Active FLUOXETINE HCL 40 MG CAPS 1 po q day FLUOXETINE HCL 88026152255 No Longer Active Mayra [place] Active FISH OIL 1000 MG CAPS Take one by mouth daily OMEGA-3 FATTY ACIDS 36058935631 Active Tu Landeros MD Active GLUCOSAMINE 500 MG TABS Take 2 tab po qd GLUCOSAMINE 08412900662 Active Tu Landeros MD Active TRILIPIX 135 MG CPDR 1 po qd CHOLINE FENOFIBRATE 38110886320 No Longer Active Tu Landeros MD Active ASPIRIN 81 MG CHEW TAB 1 tablet by mouth daily ASPIRIN 90882821477 Active Tu Landeros MD Active FUROSEMIDE 40 MG TAB 1 tablet by mouth daily FUROSEMIDE 48611170572 Active Tu Landeros MD Active REQUIP 2 MG TABS Take one tablet at bedtime prn ROPINIROLE HCL 32757125074 Active Tu Landeros MD Active KLOR-CON 10 10 MEQ CR-TABS TAKE 2 TABS DAILY POTASSIUM CHLORIDE 38797462088 Active Tu Landeros MD Active AMBIEN 10 MG TAB 1 tab by mouth at bedtime as needed for sleep AMBIEN 10 MG TAB 972507 ZOLPIDEM TARTRATE Inactive METFORMIN HCL 500 MG TABS 1 PO BID METFORMIN HCL 500 MG TABS 642189 METFORMIN HCL Inactive REGLAN 10 MG TAB 1 po TID PRN Nausea REGLAN 10 MG TAB 068665 METOCLOPRAMIDE HCL Inactive MECLIZINE HCL 25 MG CHEW TAB 1 four times a day as needed for dizziness 08/05 MECLIZINE HCL 25 MG CHEW TAB 541986 MECLIZINE HCL Inactive SOMA 350 MG TAB 1 po q 6 hours prn spasm SOMA 350 MG TAB 336509 CARISOPRODOL Inactive MELATONIN 5 MG TABS Take one by mouth daily MELATONIN 5 MG TABS 603916 MELATONIN Inactive MULTIVITAMINS TABS Take one by mouth daily MULTIVITAMINS TABS MULTIPLE VITAMIN Inactive LORTAB 5 5-500 MG TABS 1/2 to 1 tablet by mouth every 4 hours as needed for pain LORTAB 5 5-500 MG TABS HYDROCODONE- ACETAMINOPHEN Inactive XANAX 0.5 MG TABS 1 tablet every 6 hrs prn XANAX 0.5 MG TABS 227471 ALPRAZOLAM Inactive AUGMENTIN 875-125 MG TAB 1 tab by mouth twice daily with food AUGMENTIN 875-125 MG TAB 890874 AMOXICILLIN-POT CLAVULANATE Inactive ALPRAZOLAM 0.5 MG TABS 1 tab every 6hrs as needed ALPRAZOLAM 0.5 MG TABS 459861 ALPRAZOLAM Inactive SPIRONOLACTONE 25 MG TAB 0.5 tablet by mouth daily SPIRONOLACTONE 25 MG TAB 752679 SPIRONOLACTONE Inactive ACCU-CHEK KEYONA PLUS W/DEVICE KIT Use for testing bloodsugars three times daily as needed ACCU-CHEK KEYONA PLUS W/DEVICE KIT BLOOD GLUCOSE MONITORING SUPPL Inactive ACCU-CHEK KEYONA PLUS STRP Use for testing bloodsugars three times daily as needed ACCU-CHEK KEYONA PLUS STRP GLUCOSE BLOOD Inactive ACCU-CHEK FASTCLIX LANCETS MISC Use to check bloodsugar three times daily as needed ACCU-CHEK FASTCLIX LANCETS MISC 18042289386 LANCETS Inactive TRAMADOL HCL 50 MG TABS 1 tablets every 6 hours as needed for pain TRAMADOL HCL 50 MG TABS 358536 TRAMADOL HCL Inactive VENLAFAXINE HCL 75 MG TABS 1 po BID VENLAFAXINE HCL 75 MG TABS 800318 VENLAFAXINE HCL Inactive HYDROCODONE-ACETAMINOPHEN 5-500 MG TABS take one po Q 4-6 hours prn HYDROCODONE-ACETAMINOPHEN 5-500 MG TABS HYDROCODONE- ACETAMINOPHEN Inactive LORTAB 5 5-500 MG TABS 1/2 to 1 tablet by mouth every 4 hours as needed for pain LORTAB 5 5-500 MG TABS HYDROCODONE- ACETAMINOPHEN Inactive LAMISIL 250 MG TAB 1 po qd LAMISIL 250 MG TAB 917459 TERBINAFINE HCL Inactive VENLAFAXINE HCL 37.5 MG TABS 1 po BID VENLAFAXINE HCL 37.5 MG TABS 353974 VENLAFAXINE HCL Inactive CIPRO 500 MG TAB 1 tablet by mouth twice daily CIPRO 500 MG TAB 877233 CIPROFLOXACIN HCL Inactive VENLAFAXINE HCL 75 MG TABS 1 po BID VENLAFAXINE HCL 75 MG TABS 224391 VENLAFAXINE HCL Inactive SIMVASTATIN 40 MG TABS Take one by mouth daily SIMVASTATIN 40 MG TABS 522426 SIMVASTATIN Inactive OMEPRAZOLE 20 MG TBEC 1 PO 30 MIN BEFORE 1ST MEAL OMEPRAZOLE 20 MG TBEC 204426 OMEPRAZOLE Inactive FENOFIBRATE 145 MG TABS 1 po qd FENOFIBRATE 145 MG TABS 443164 FENOFIBRATE Inactive BACTRIM DS 800-160 MG TABS 1 bid x 14 day start 09-28-13 BACTRIM DS 800-160 MG TABS 058226 SULFAMETHOXAZOLE-TRIMETHOPRIM Inactive B-12 100 MCG TABS Take one by mouth daily B-12 100 MCG TABS CYANOCOBALAMIN Inactive GABAPENTIN 100 MG CAPS 1 po bid GABAPENTIN 100 MG CAPS 081785 GABAPENTIN Inactive HYDROCODONE-ACETAMINOPHEN 5-325 MG TABS 1 tab by mouth every 6 hours as needed for pain HYDROCODONE-ACETAMINOPHEN 5-325 MG TABS 902142 HYDROCODONE-ACETAMINOPHEN Inactive CIPRO 500 MG TABS 1 bid x 14 days start 09-28-13 CIPRO 500 MG TABS 895137 CIPROFLOXACIN HCL Inactive ALIGN 4 MG CAPS [...] as needed DICLOFENAC SODIUM 50 MG TBEC 275328 DICLOFENAC SODIUM Inactive PREDNISONE 20 MG TAB 2 tablets once daily for 2 days, then 1 tablet once daily for 2 days PREDNISONE 20 MG TAB 372539 PREDNISONE Inactive TRUEDRAW LANCING DEVICE MISC Test [...] 2 weeks TRIAMCINOLONE ACETONIDE 0.1 % OINT 7851253 TRIAMCINOLONE ACETONIDE Inactive PREDNISONE 20 MG TAB 2 tabs daily for 3 days, 1 tab daily for 3 days, 1/2 tab daily for 2 days PREDNISONE 20 MG TAB 569486 PREDNISONE Inactive PREDNISONE 20 MG TAB 2 tabs daily for 3 days, 1 tab daily for 3 days, 1/2 tab daily for 2 days PREDNISONE 20 MG TAB 310061 PREDNISONE Inactive BACTRIM DS 800-160 MG TABS 1 po BID x 7 days BACTRIM DS 800-160 MG TABS 335746 SULFAMETHOXAZOLE-TRIMETHOPRIM Inactive Immunizations Vaccine Administration Date Value Standard Description Seasonal influenza vaccine, injectable, containing preservative, for > 3 years old (Afluria, FluLaval, Fluzone, Fluvirin, Fluarix, Agriflu(>=18 yo)) Fluzone (>3 yrs.) [[id number]] Influenza, seasonal, injectable influenza immunization (Flu Vax) has been administered 02/22/2012 influenza virus vaccine, unspecified formulation Seasonal influenza vaccine, injectable, containing preservative, for > 3 years old (Afluria, FluLaval, Fluzone, Fluvirin, Fluarix, Agriflu(>=18 yo)) Fluzone (>3 yrs.) [[id number]] Influenza, seasonal, injectable Vital Signs Date Name [...] mg/g mg/g{creat} 0-29 sodium, serum 142 mmol/L 735-238 9301/10/08 potassium, serum 4.5 mmol/L 3.5-5.2 chloride, serum 105 mmol/L 98-107 carbon dioxide, venous blood 28.9 mmol/L 21.0-32.0 blood glucose 142 mg/dL 65-110 calcium, serum 9.1 mg/dL 8.5-10.1 urea nitrogen, blood 17 mg/dL 7-18 creatinine, serum 0.92 mg/dL 0.55-1.30 Lab Report: Basic Metabolic Panel, MICROALBUMIN - Lab microalbumin, urine 10 0-19 Lab Report: HEPATIC PANEL, Lipid Panel - Chemistry triglyceride, serum, fasting 177 mg/dL 30-200 HDL cholesterol, serum 32 mg/dL 32-96 aspartate aminotransferase (SGOT), serum 18 U/L 15-37 LDL cholesterol, serum 44 mg/dL 0-130 alanine aminotransferase (SGPT), serum 32 U/L 12-78 bilirubin, serum, total 0.30 mg/dL 0.00-1.00 cholesterol, serum 111 mg/dL 130-200 Lab Report: HGBA1C - Chemistry hemoglobin A1C, blood, as % of total hemoglobin 6.6 % 4.3-6.0 hemoglobin A1C, blood, as % of total hemoglobin 7.7 % 4.3-6.0 hemoglobin A1C, blood, as % of total hemoglobin 6.8 % 4.3-6.0 Lab Report: LH/Adult/615, FSH/Adult/470 - Chemistry luteinizing hormone, serum 1.3 m[iU]/mL follicle stimulating hormone, serum 5.5 m[iU]/mL Lab Report: Lipid Panel, Comp. Metabolic Panel - Chemistry cholesterol, serum 124 mg/dL 925-565 5624/01/12 triglyceride, serum, fasting 135 mg/dL 30-200 HDL cholesterol, serum 41 mg/dL 32-96 LDL cholesterol, serum 56 mg/dL 0-130 sodium, serum 140 mmol/L 394-525 5339/01/12 carbon dioxide, venous blood 27.7 mmol/L 21.0-32.0 potassium, serum 4.5 mmol/L 3.5-5.2 chloride, serum 104 mmol/L 98-107 blood glucose 139 mg/dL 65-110 urea nitrogen, blood 16 mg/dL 7-18 alanine aminotransferase (SGPT), serum 32 U/L 12-78 aspartate aminotransferase (SGOT), serum 25 U/L 15-37 calcium, serum 9.1 mg/dL 8.5-10.1 bilirubin, serum, total 0.50 mg/dL 0.00-1.00 Encounters Code Encounter Date Provider Facility CPT-17940 Level 4 Est. Patient 13:50:18 NETWORK TECHNOLOGY INSTRUCTOR Tu Landeros MD [facility] CPT-64815 Level 3 Est. Patient 10:30:04 CDT Tu Landeros MD [facility] CPT-12704 Level 4 Est. Patient 11:03:38 CDT Tu Landeros MD [facility] CPT-33130 Level 3 Est. Patient 10:20:44 CDT Fab Morales DO [facility] CPT-28052 Level 4 Est. Patient 14:38:57 CDT Tu Landeros MD [facility] CPT-16601 Level 4 Est. Patient 14:27:39 NETWORK TECHNOLOGY INSTRUCTOR Tu Landeros MD [facility] CPT-13017 Level 4 Est. Patient 09:45:25 CDT Tu Landeros MD [facility] CPT-70713 Level 4 Est. Patient 09:05:20 NETWORK TECHNOLOGY INSTRUCTOR Tu Landeros MD [facility] CPT-36549 Level 4 Est. Patient 14:09:06 CDT Tu Landeros MD [facility] CPT-00344 Level 3 Est. Patient 13:36:54 CDT Tu Landeros MD [facility] CPT-93160 Level 3 Est. Patient 08:59:14 CDT Tu Landeros MD [facility] CPT-01690 Level 3 Est. Patient 13:48:35 CDT Fab Morales DO [facility] CPT-88983 Level 4 Est. Patient 10:05:48 CDT Tu Landeros MD [facility] CPT-08026 Level 3 Est. Patient 13:38:42 CDT Marek BANKS [facility] CPT-69234 Level 5 Est. Patient 08:08:39 CDT Jerrica Hopkins TITO [facility] CPT-51052 Level 4 Est. Patient 14:23:38 CDT Tu Landeros MD [facility] CPT-60569 Level 3 Est. Patient 11:44:04 CDT Tu Landeros MD [facility] CPT-69811 Level 3 Est. Patient 11:03:20 NETWORK TECHNOLOGY INSTRUCTOR Tu Landeros MD [facility] CPT-93462 Level 3 Est. Patient 11:03:14 NETWORK TECHNOLOGY INSTRUCTOR Tu Landeros MD [facility] CPT-52250 Level 3 Est. Patient 12:42:49 CDT Tu Landeros MD [facility] CPT-00065 Level 3 Est. Patient 11:52:06 CDT Tu Landeros MD [facility] CPT-11736 Level 3 Est. Patient 13:58:11 CDT Tu Landeros MD [facility] CPT-93427 Level 3 Est. Patient 17:50:07 CDT Fab Morales DO [facility] CPT-12937 Level 3 Est. Patient 12:06:29 CDT Elvira Cervantes MD, PhD [facility] CPT-12305 Level 3 Est. Patient 15:50:32 CDT Tu Landeros MD [facility] CPT-62891 Level 4 Est. Patient 16:08:29 CDT Tu Landeros MD [facility] CPT-64223 Level 3 Est. Patient 16:04:19 CDT Tu Landeros MD [facility] CPT-80590 Level 3 Est. Patient 11:22:30 NETWORK TECHNOLOGY INSTRUCTOR Tu Landeros MD [facility] CPT-35006 Level 4 Est. Patient 16:24:02 NETWORK TECHNOLOGY INSTRUCTOR Tu Landeros MD [facility] CPT-14085 Level 3 Est. Patient 17:21:23 NETWORK TECHNOLOGY INSTRUCTOR Tu Landeros MD [facility] Procedures Code Procedure Name Date Entry Date Standard Description CPT-96597 Postop F/U Visit 10:02:45 CDT CPT-LR Lesion Removal 09:02:56 CDT CPT-JTINJ Asp/Joint Injection 15:51:27 NETWORK TECHNOLOGY INSTRUCTOR CPT-OV Office Visit 15:52:02 NETWORK TECHNOLOGY INSTRUCTOR CPT-OV Office Visit 15:45:11 CDT CPT-000 Give Zostavax 14:09:06 CDT CPT-51543 Administration single or combination vaccine inc oral 15 :19:04 CDT CPT-16283 Zoster Vaccine (Zostavax) 15:19:04 CDT CPT-62086 Administration single or combination vaccine inc oral 20 :51:03 CDT CPT-14341 Influenza split virus > age 3 20:51:03 CDT CPT-88952 No Charge Offi Visit 14:52:03 CDT CPT-OV Office Visit 14:57:43 CDT CPT-OV Office Visit 15:22:32 CDT CPT-67995 Administration single or combination vaccine inc oral 11 :33:15 CDT CPT-78869 Influenza split virus > age 3 11:33:15 CDT
--- OUTSIDE RECORDS SUMMARY | 2018-04-25 14:07 | XMS REPORT | Clinical Summary ---
Author Author Admin, SACHI Organization [employer] Address Unknown Phone Unavailable Allergies, Adverse Reactions, [...] not further specified ICD- 369.20 Inactive Tu Landeors MD Pain in unspecified foot ICD-729.5 Inactive Tu Landeros MD Shoulder pain, right ICD-719.41 Inactive Tu Landeros MD Great toe pain ICD-729.5 Inactive Tu Landeros MD Medication List Medication Instructions Start Date Stop Date Generic Name NDC Status Provider Patient Instruction PREDNISONE 20 MG ORAL TABLET 2 po qd x 5 days PREDNISONE 59101687793 Active Tu Landeros MD Active PROMETHAZINE-CODEINE 6.25-10 MG/5ML ORAL SYRUP 5ml po q6hr PRN Cough PROMETHAZINE-CODEINE 46501005356 Active Tu Landeros MD Active FLUTICASONE PROPIONATE 50 MCG/ACT NASAL SUSPENSION 2 sprays/nostril qd PRN Congestion/Allergies FLUTICASONE PROPIONATE 37127452127 Active Tu Landeros MD Active NASONEX 50 MCG/ACT NASAL SUSPENSION 2 actuations in each nostril q day 07/15 MOMETASONE FUROATE 78585140901 No Longer Active Tu Landeros MD Active GUAIFENESIN ER 600 MG ORAL TABLET EXTENDED RELEASE 12 HOUR 1 twice a day as needed for congestion GUAIFENESIN 04025676119 Active Lesli Kellogg APRN Active MAGNESIUM OXIDE 400 MG ORAL TABLET 1 po BID MAGNESIUM OXIDE 55228698347 Active Tu Landeros MD Active SIMVASTATIN 20 MG ORAL TABLET 0.5 po qHS SIMVASTATIN 70261816544 Active Tu Landeros MD Active DICLOFENAC SODIUM 75 MG ORAL TABLET DELAYED RELEASE 1 po BID PRN Pain DICLOFENAC SODIUM 13129666891 No Longer Active Tu Landeros MD Active GABAPENTIN 100 MG ORAL CAPSULE 1 po TID GABAPENTIN 89112176824 Active Tu Landeros MD Active DICLOFENAC SODIUM 50 MG ORAL TABLET DELAYED RELEASE 1 po BID PRN Pain DICLOFENAC SODIUM 92862086203 No Longer Active Tu Landeros MD Active CYCLOBENZAPRINE HCL 10 MG ORAL TABLET 1 po TID PRN Muscle Spasm CYCLOBENZAPRINE HCL 90484685657 No Longer Active Tu Landeros MD Active INVOKANA 100 MG ORAL TABLET 1 po qd CANAGLIFLOZIN 26773793825 Active Tu Landeros MD Active GLIPIZIDE 5 MG ORAL TABLET 1 po qd GLIPIZIDE 17316199610 No Longer Active Tu Landeros MD Active VENLAFAXINE HCL 75 MG ORAL TABLET 1 po BID VENLAFAXINE HCL 17072344215 Active Tu Landeros MD Active GLIMEPIRIDE 1 MG ORAL TABLET 1 po qd GLIMEPIRIDE 93981861082 No Longer Active Tu Landeros MD Active TRUE METRIX BLOOD GLUCOSE TEST IN VITRO STRIP Test blood sugar BID Dx: E11.9 GLUCOSE BLOOD 80919571050 Active Tu Landeros MD Active TRUE METRIX AIR GLUCOSE METER w/Device KIT Test blood glucose BID Dx: E11.9 BLOOD GLUCOSE MONITORING SUPPL 72620232201 Active Tu Landeros MD Active TRUETEST TEST IN VITRO STRIP test blood sugar twice daily. DX 250.0 GLUCOSE BLOOD 26111643034 No Longer Active Mirna Stanley LPN Active TRUEDRAW LANCING DEVICE test blood sugar twice daily dx: 250.00 LANCET DEVICES 28864229660 No Longer Active Mirna Stanley LPN Active ENALAPRIL MALEATE 20 MG ORAL TABLET 2 po qd ENALAPRIL MALEATE 56155609732 Active Tu Landeros MD Active SUPER B COMPLEX/VITAMIN C ORAL TABLET 1 qd B COMPLEX- C 16670394378 No Longer Active Tu Landeros MD Active ASPIRIN EC 81 MG ORAL TABLET DELAYED RELEASE 1 po qd ASPIRIN 58750605826 Active Tu Landeros MD Active GLUCOSAMINE 500 MG TABS 2 po qd GLUCOSAMINE Active Tu Landeros MD Active FISH OIL 1000 MG ORAL CAPSULE 1 po qd OMEGA-3 FATTY ACIDS 00329452637 Active Tu Landeros MD Active METFORMIN HCL 1000 MG ORAL TABLET 1 po BID METFORMIN HCL 60294638007 Active Tu Landeros MD Active KLOR-CON 10 10 MEQ ORAL TABLET EXTENDED RELEASE 2 po qd POTASSIUM CHLORIDE 31607933030 Active Tu Landeros MD Active FUROSEMIDE 40 MG ORAL TABLET 1 po qd FUROSEMIDE 94173647063 Active Tu Landeros MD Active REQUIP 2 MG ORAL TABLET 1 po qHS PRN Restless legs ROPINIROLE HCL 92161502259 Active Tu Landeros MD Active REQUIP 2 MG ORAL TABLET Take one tablet at bedtime prn ROPINIROLE HCL 39655557473 No Longer Active Tu Landeros MD Active VENTOLIN HFA 108 (90 Base) MCG/ACT INHALATION AEROSOL SOLUTION 1-2 puffs every 4 hours if needed for cough/congestion ALBUTEROL SULFATE 15643002358 No Longer Active Ambika Aden APRN Active ZITHROMAX 250 MG ORAL TABLET 2 po today, then 1 po q days 2-5 AZITHROMYCIN 84727276663 No Longer Active Miranda Farah APRN Active FLONASE 50 MCG/ACT NASAL SUSPENSION 1 spray each nostril twice daily until bottle empty FLUTICASONE PROPIONATE 02412247215 No Longer Active Tu Landeros MD Active COLACE 100 MG ORAL CAPSULE 1 po BID PRN Constipation DOCUSATE SODIUM 55350329274 Active Tu Landeros MD Active TRUERESULT BLOOD GLUCOSE w/Device KIT test blood sugar twice daily dx 250.00 BLOOD GLUCOSE MONITORING SUPPL 43061941608 No Longer Active Tu Landeros MD Active TRUEDRAW LANCING DEVICE Test twice a day dx 250.0 LANCET DEVICES 14419499113 No Longer Active Tu Landeros MD Active PREDNISONE 20 MG ORAL TABLET 2 tablets once daily for 2 days, then 1 tablet once daily for 2 days PREDNISONE 10950606312 No Longer Active Tu Landeros MD Active DICLOFENAC SODIUM 50 MG ORAL TABLET DELAYED RELEASE 1 tablet by mouth three times a day as needed DICLOFENAC SODIUM 54790314820 No Longer Active Fab Morales DO Active EMBRACE BLOOD GLUCOSE TEST IN VITRO STRIP test blood sugar twice daily DX 250.0 GLUCOSE BLOOD 65943012382 No Longer Active Tu Landeros MD Active TRUETEST TEST IN VITRO STRIP test blood sugar three times daily dx: 250.00 GLUCOSE BLOOD 69367645202 No Longer Active Suze Corey VOGEL Active TRUERESULT BLOOD GLUCOSE w/Device KIT use to test blood sugar tid dx: 250.00 BLOOD GLUCOSE MONITORING SUPPL 42649035631 No Longer Active Suze Corey VOGEL Active ALIGN 4 MG ORAL CAPSULE 1 tid PROBIOTIC PRODUCT 24264946338 No Longer Active Shaun Sy MD Active CIPRO 500 MG ORAL TABLET 1 bid x 14 days start 09-28-13 CIPROFLOXACIN HCL 15898350459 No Longer Active Shaun Sy MD Active TRAMADOL HCL 50 MG ORAL TABLET 1-2 tablets every 6 hours as needed for pain TRAMADOL HCL 11596791717 Active Tu Landeros MD Active HYDROCODONE-ACETAMINOPHEN 5-325 MG ORAL TABLET 1 tab by mouth every 6 hours as needed for pain HYDROCODONE-ACETAMINOPHEN 78195111975 No Longer Active Tu Landeros MD Active OMEPRAZOLE 20 MG ORAL CAPSULE DELAYED RELEASE 1 po q a.m. OMEPRAZOLE 51055942170 Active Fab Morales DO Active GABAPENTIN 100 MG ORAL CAPSULE 1 po bid GABAPENTIN 44475574865 No Longer Active Tu Landeros MD Active B-12 100 MCG ORAL TABLET Take one by mouth daily CYANOCOBALAMIN 74245710283 No Longer Active Tu Landeros MD Active BACTRIM DS 800-160 MG ORAL TABLET 1 bid x 14 day start 14 SULFAMETHOXAZOLE-TRIMETHOPRIM 87046073086 No Longer Active Tu Landeros MD Active CARVEDILOL 12.5 MG ORAL TABLET 1 po BID CARVEDILOL 15054268471 Active Tu Landeros MD Active TRILIPIX 135 MG ORAL CAPSULE DELAYED RELEASE 1 q hs CHOLINE FENOFIBRATE 18398807139 Active Tu Landeros MD Active FENOFIBRATE 145 MG ORAL TABLET 1 po qd FENOFIBRATE 40688967476 No Longer Active JASPREET Perez Active OMEPRAZOLE 20 MG ORAL TABLET DELAYED RELEASE 1 PO 30 MIN BEFORE 1ST MEAL 2010 OMEPRAZOLE 60943396381 No Longer Active JASPREET Perez Active SIMVASTATIN 40 MG ORAL TABLET Take one by mouth daily SIMVASTATIN 03584144373 No Longer Active JASPREET Perez Active VENLAFAXINE HCL 75 MG ORAL TABLET 1 po BID VENLAFAXINE HCL 85224178912 No Longer Active JASPREET Perez Active CIPRO 500 MG ORAL TABLET 1 tablet by mouth twice daily CIPROFLOXACIN HCL 57958000362 No Longer Active Tu Landeros MD Active VENLAFAXINE HCL 37.5 MG ORAL TABLET 1 po BID VENLAFAXINE HCL 47745965498 No Longer Active Suze VOGEL Active LAMISIL 250 MG ORAL TABLET 1 po qd TERBINAFINE HCL 77989729595 No Longer Active Tu Landeros MD Active LORTAB 5-500 MG ORAL TABLET 1/2 to 1 tablet by mouth every 4 hours as needed for pain HYDROCODONE-ACETAMINOPHEN 44773315485 No Longer Active Tu Landeros MD Active HYDROCODONE-ACETAMINOPHEN 5-500 MG ORAL TABLET take one po Q 4-6 hours prn HYDROCODONE-ACETAMINOPHEN 39475865538 No Longer Active Tu Landeros MD Active BACTRIM DS 800-160 MG ORAL TABLET 1 po BID x 7 days SULFAMETHOXAZOLE-TRIMETHOPRIM 07364446863 No Longer Active Tu Landeros MD Active VENLAFAXINE HCL 75 MG ORAL TABLET 1 po BID VENLAFAXINE HCL 83358150155 No Longer Active Elvira Cervantes MD PhD Active TRAMADOL HCL 50 MG ORAL TABLET 1 tablets every 6 hours as needed for pain TRAMADOL HCL 29672200287 No Longer Active Tu Landeros MD Active ACCU-CHEK FASTCLIX LANCETS Use to check bloodsugar three times daily as needed LANCETS 34316837371 No Longer Active Tu Landeros MD Active ACCU-CHEK KEYONA PLUS IN VITRO STRIP Use for testing bloodsugars three times daily as needed GLUCOSE BLOOD 20498984741 No Longer Active Tu Landeros MD Active ACCU-CHEK KEYONA PLUS w/Device KIT Use for testing bloodsugars three times daily as needed BLOOD GLUCOSE MONITORING SUPPL 18886874176 No Longer Active Tu Landeros MD Active SPIRONOLACTONE 25 MG ORAL TABLET 0.5 tablet by mouth daily 09/09 SPIRONOLACTONE 40329001070 No Longer Active Tu Landeros MD Active ALPRAZOLAM 0.5 MG ORAL TABLET 1 tab every 6hrs as needed ALPRAZOLAM 57616089599 No Longer Active Tu Landeros MD Active AUGMENTIN 875-125 MG ORAL TABLET 1 tab by mouth twice daily with food AMOXICILLIN-POT CLAVULANATE 34392261877 No Longer Active Tu Landeros MD Active PREDNISONE 20 MG ORAL TABLET 2 tabs daily for 3 days, 1 tab daily for 3 days, 1/2 tab daily for 2 days PREDNISONE 59799546700 No Longer Active Tu Landeros MD Active XANAX 0.5 MG ORAL TABLET 1 tablet every 6 hrs prn ALPRAZOLAM 77352048514 No Longer Active Tu Landeros MD Active PREDNISONE 20 MG ORAL TABLET 2 tabs daily for 3 days, 1 tab daily for 3 days, 1/2 tab daily for 2 days PREDNISONE 20245451085 No Longer Active Tu Landeros MD Active TRIAMCINOLONE ACETONIDE 0.1 % EXTERNAL OINTMENT Apply to affected areas TID for up to 2 weeks TRIAMCINOLONE ACETONIDE 17032344880 No Longer Active Tu Landeros MD Active LORTAB 5-500 MG ORAL TABLET 1/2 to 1 tablet by mouth every 4 hours as needed for pain HYDROCODONE-ACETAMINOPHEN 42479585303 No Longer Active Tu Landeros MD Active MULTIVITAMINS TABS Take one by mouth daily MULTIPLE VITAMIN 29006400886 No Longer Active Tu Landeros MD Active MELATONIN 5 MG ORAL TABLET Take one by mouth daily MELATONIN 91936548842 No Longer Active Tu Landeros MD Active SOMA 350 MG ORAL TABLET 1 po q 6 hours prn spasm CARISOPRODOL 22020418640 No Longer Active Tu Landeros MD Active MECLIZINE HCL 25 MG ORAL TABLET CHEWABLE 1 four times a day as needed for dizziness MECLIZINE HCL 06643446850 No Longer Active Fab Morales DO Active ANGEL BREEZE 2 TEST IN VITRO DISK test tid prn GLUCOSE BLOOD 35411537871 No Longer Active Negra Scott RN Active REGLAN 10 MG ORAL TABLET 1 po TID PRN Nausea METOCLOPRAMIDE HCL 57346441849 No Longer Active Tu Landeros MD Active METFORMIN HCL 500 MG ORAL TABLET 1 PO BID METFORMIN HCL 44197745534 No Longer Active Tu Landeros MD Active AMBIEN 10 MG ORAL TABLET 1 tab by mouth at bedtime as needed for sleep 06/10 ZOLPIDEM TARTRATE 73208347477 No Longer Active Tu Landeros MD Active FLUOXETINE HCL 40 MG ORAL CAPSULE 1 po q day FLUOXETINE HCL 48775502871 No Longer Active Mayra Terry Active TRILIPIX 135 MG ORAL CAPSULE DELAYED RELEASE 1 po qd CHOLINE FENOFIBRATE 95626262049 No Longer Active Tu Landeros MD Active AMBIEN 10 MG ORAL TABLET 1 tab by mouth at bedtime as needed for sleep 06/10 AMBIEN 10 MG ORAL TABLET 792419 ZOLPIDEM TARTRATE Inactive METFORMIN HCL 500 MG ORAL TABLET 1 PO BID METFORMIN HCL 500 MG ORAL TABLET 501298 METFORMIN HCL Inactive REGLAN 10 MG ORAL TABLET 1 po TID PRN Nausea REGLAN 10 MG ORAL TABLET 855219 METOCLOPRAMIDE HCL Inactive MECLIZINE HCL 25 MG ORAL TABLET CHEWABLE 1 four times a day as needed for dizziness MECLIZINE HCL 25 MG ORAL TABLET CHEWABLE 393611 MECLIZINE HCL Inactive SOMA 350 MG ORAL TABLET 1 po q 6 hours prn spasm SOMA 350 MG ORAL TABLET 275923 CARISOPRODOL Inactive MELATONIN 5 MG ORAL TABLET Take one by mouth daily MELATONIN 5 MG ORAL TABLET 253457 MELATONIN Inactive MULTIVITAMINS TABS Take one by mouth daily MULTIVITAMINS TABS MULTIPLE VITAMIN Inactive LORTAB 5-500 MG ORAL TABLET 1/2 to 1 tablet by mouth every 4 hours as needed for pain LORTAB 5-500 MG ORAL TABLET HYDROCODONE- ACETAMINOPHEN Inactive XANAX 0.5 MG ORAL TABLET 1 tablet every 6 hrs prn XANAX 0.5 MG ORAL TABLET 967923 ALPRAZOLAM Inactive AUGMENTIN 875-125 MG ORAL TABLET 1 tab by mouth twice daily with food AUGMENTIN 875-125 MG ORAL TABLET 657378 AMOXICILLIN-POT CLAVULANATE Inactive ALPRAZOLAM 0.5 MG ORAL TABLET 1 tab every 6hrs as needed ALPRAZOLAM 0.5 MG ORAL TABLET 734322 ALPRAZOLAM Inactive SPIRONOLACTONE 25 MG ORAL TABLET 0.5 tablet by mouth daily 09/09 SPIRONOLACTONE 25 MG ORAL TABLET 751465 SPIRONOLACTONE Inactive ACCU-CHEK KEYONA PLUS w/Device KIT [...] times daily as needed ACCU-CHEK FASTCLIX LANCETS 95130261335 LANCETS Inactive TRAMADOL HCL 50 MG ORAL TABLET 1 tablets every 6 hours as needed for pain TRAMADOL HCL 50 MG ORAL TABLET 361199 TRAMADOL HCL Inactive VENLAFAXINE HCL 75 MG ORAL TABLET 1 po BID VENLAFAXINE HCL 75 MG ORAL TABLET 642640 VENLAFAXINE HCL Inactive HYDROCODONE-ACETAMINOPHEN 5-500 MG ORAL TABLET take one po Q 4-6 hours prn HYDROCODONE-ACETAMINOPHEN 5-500 MG ORAL TABLET 454212 HYDROCODONE-ACETAMINOPHEN Inactive LORTAB 5-500 MG ORAL TABLET 1/2 to 1 tablet by mouth every 4 hours as needed for pain LORTAB 5-500 MG ORAL TABLET HYDROCODONE- ACETAMINOPHEN Inactive LAMISIL 250 MG ORAL TABLET 1 po qd LAMISIL 250 MG ORAL TABLET 766078 TERBINAFINE HCL Inactive VENLAFAXINE HCL 37.5 MG ORAL TABLET 1 po BID VENLAFAXINE HCL 37.5 MG ORAL TABLET 960548 VENLAFAXINE HCL Inactive CIPRO 500 MG ORAL TABLET 1 tablet by mouth twice daily CIPRO 500 MG ORAL TABLET 419238 CIPROFLOXACIN HCL Inactive VENLAFAXINE HCL 75 MG ORAL TABLET 1 po BID VENLAFAXINE HCL 75 MG ORAL TABLET 109381 VENLAFAXINE HCL Inactive SIMVASTATIN 40 MG ORAL TABLET Take one by mouth daily SIMVASTATIN 40 MG ORAL TABLET 771243 SIMVASTATIN Inactive OMEPRAZOLE 20 MG ORAL TABLET DELAYED RELEASE 1 PO 30 MIN BEFORE 1ST MEAL 2010 OMEPRAZOLE 20 MG ORAL TABLET DELAYED RELEASE 321305 OMEPRAZOLE Inactive FENOFIBRATE 145 MG ORAL TABLET 1 po qd FENOFIBRATE 145 MG ORAL TABLET 891964 FENOFIBRATE Inactive BACTRIM DS 800-160 MG ORAL TABLET 1 bid x 14 day start 09-28-13 BACTRIM DS 800-160 MG ORAL TABLET 085702 SULFAMETHOXAZOLE- TRIMETHOPRIM Inactive B-12 100 MCG ORAL TABLET Take one by mouth daily B-12 100 MCG ORAL TABLET CYANOCOBALAMIN Inactive GABAPENTIN 100 MG ORAL CAPSULE 1 po bid GABAPENTIN 100 MG ORAL CAPSULE 756673 GABAPENTIN Inactive HYDROCODONE-ACETAMINOPHEN 5-325 MG ORAL TABLET 1 tab by mouth every 6 hours as needed for pain HYDROCODONE-ACETAMINOPHEN 5-325 MG ORAL TABLET 621984 HYDROCODONE-ACETAMINOPHEN Inactive CIPRO 500 MG ORAL TABLET 1 bid x 14 days start 09-28-13 CIPRO 500 MG ORAL TABLET 670058 CIPROFLOXACIN HCL Inactive ALIGN 4 MG ORAL [...] SODIUM 50 MG ORAL TABLET DELAYED RELEASE 388687 DICLOFENAC SODIUM Inactive PREDNISONE 20 MG ORAL TABLET 2 tablets once daily for 2 days, then 1 tablet once daily for 2 days PREDNISONE 20 MG ORAL TABLET 692294 PREDNISONE Inactive TRUEDRAW LANCING DEVICE Test twice a day dx 250.0 TRUEDRAW LANCING DEVICE LANCET DEVICES Inactive TRUERESULT BLOOD GLUCOSE w/Device KIT test blood sugar twice daily dx 250.00 TRUERESULT BLOOD GLUCOSE w/Device KIT BLOOD GLUCOSE MONITORING SUPPL Inactive FLONASE 50 MCG/ACT NASAL SUSPENSION 1 spray each nostril twice daily until bottle empty FLONASE 50 MCG/ACT NASAL SUSPENSION 7918817 FLUTICASONE PROPIONATE Inactive VENTOLIN HFA 108 (90 Base) MCG/ACT INHALATION AEROSOL SOLUTION 1-2 puffs every 4 hours if needed for cough/congestion VENTOLIN HFA 108 (90 Base) MCG/ACT INHALATION AEROSOL SOLUTION ALBUTEROL SULFATE Inactive REQUIP 2 MG ORAL TABLET Take one tablet at bedtime prn REQUIP 2 MG ORAL TABLET 495262 ROPINIROLE HCL Inactive SUPER B COMPLEX/VITAMIN C ORAL TABLET 1 qd SUPER B COMPLEX/VITAMIN C ORAL TABLET 77289701561 B COMPLEX-C Inactive TRUEDRAW LANCING DEVICE test blood sugar twice daily dx: 250.00 TRUEDRAW LANCING DEVICE LANCET DEVICES Inactive TRUETEST TEST IN VITRO STRIP test blood sugar twice daily. DX 250.0 TRUETEST TEST IN VITRO STRIP GLUCOSE BLOOD Inactive CYCLOBENZAPRINE HCL 10 MG ORAL TABLET 1 po TID PRN Muscle Spasm CYCLOBENZAPRINE HCL 10 MG ORAL TABLET 888350 CYCLOBENZAPRINE HCL Inactive DICLOFENAC SODIUM 50 MG ORAL TABLET DELAYED RELEASE 1 po BID PRN Pain DICLOFENAC SODIUM 50 MG ORAL TABLET DELAYED RELEASE 662682 DICLOFENAC SODIUM Inactive DICLOFENAC SODIUM 75 MG ORAL TABLET DELAYED RELEASE 1 po BID PRN Pain DICLOFENAC SODIUM 75 MG ORAL TABLET DELAYED RELEASE 517934 DICLOFENAC SODIUM Inactive NASONEX 50 MCG/ACT NASAL SUSPENSION 2 actuations in each nostril q day 07/15 NASONEX 50 MCG/ACT NASAL SUSPENSION 5502171 MOMETASONE FUROATE Inactive TRIAMCINOLONE ACETONIDE 0.1 % EXTERNAL OINTMENT Apply to affected areas TID for up to 2 weeks TRIAMCINOLONE ACETONIDE 0.1 % EXTERNAL OINTMENT 0266293 TRIAMCINOLONE ACETONIDE Inactive PREDNISONE 20 MG ORAL TABLET 2 tabs daily for 3 days, 1 tab daily for 3 days, 1/2 tab daily for 2 days PREDNISONE 20 MG ORAL TABLET 259212 PREDNISONE Inactive PREDNISONE 20 MG ORAL TABLET 2 tabs daily for 3 days, 1 tab daily for 3 days, 1/2 tab daily for 2 days PREDNISONE 20 MG ORAL TABLET 091295 PREDNISONE Inactive BACTRIM DS 800-160 MG ORAL TABLET 1 po BID x 7 days BACTRIM DS 800-160 MG ORAL TABLET 623086 SULFAMETHOXAZOLE-TRIMETHOPRIM Inactive ZITHROMAX 250 MG ORAL TABLET 2 po today, then 1 po q days 2-5 ZITHROMAX 250 MG ORAL TABLET 782133 AZITHROMYCIN Inactive Advance Directives Directive Description Start Date DISCUSSED WITH PATIENT -- NO DECISION MADE Immunizations Vaccine Administration Date Value Standard Description Seasonal influenza vaccine, injectable, containing preservative, for > 3 years old (Afluria, FluLaval, Fluzone, Fluvirin, Fluarix, Agriflu(>=18 yo)) Fluzone (>3 yrs.) [[id number]] Influenza, seasonal, injectable influenza immunization (Flu Vax) has been administered 02/22/2012 influenza virus vaccine, unspecified formulation Seasonal influenza vaccine, injectable, containing preservative, for > 3 years old (Afluria, FluLaval, Fluzone, Fluvirin, Fluarix, Agriflu(>=18 yo)) Fluzone (>3 yrs.) [[id number]] Influenza, seasonal, injectable Vital Signs Date Name [...] ... - Chemistry sodium, serum 141 mmol/L 853-148 2200/01/16 carbon dioxide, venous blood 28.3 mmol/L 21.0-32.0 [...] 6.7 % 4.3-6.0 cholesterol, serum 106 mg/dL 259-014 7669/01/16 triglyceride, serum, fasting 173 mg/dL 30-200 HDL [...] A1c - Chemistry cholesterol, serum 135 mg/dL 967-115 9404/05/17 HDL cholesterol, serum 41 mg/dL > OR=46 triglyceride, serum, fasting 206 mg/dL <150 LDL cholesterol, serum 53 MG/DL (CALC) mg/dL <130 cholesterol/HDL ratio, serum 3.3 (calc) < OR=5.0 Lab Report: HGBA1C - Chemistry hemoglobin A1C, blood, as % of total hemoglobin 6.5 % 4.3-6.0 Encounters Code Encounter Date Provider Facility CPT-00728 Level 3 Est. Patient 10:13:19 [employer] Lesli Kellogg APRN [facility] CPT-13730 Level 4 Est. Patient 13:42:02 [employer] Tu Landeros MD [facility] CPT-53504 Level 3 Est. Patient 14:20:36 CDT Tu Landeros MD [facility] CPT-35579 Level 4 Est. Patient 14:28:34 CDT Tu Landeros MD [facility] CPT-43257 Level 3 Est. Patient 13:33:09 CDT Tu Landeros MD [facility] CPT-19749 Level 4 Est. Patient 14:29:21 CDT Tu Landeros MD [facility] CPT-44084 Level 4 Est. Patient 09:08:17 [employer] Tu Landeros MD [facility] CPT-84981 Level 4 Est. Patient 14:40:19 CDT Tu Landeros MD [facility] CPT-48798 Level 4 Est. Patient 14:06:04 [employer] Tu Landeros MD [facility] CPT-24542 Level 3 Est. Patient 14:05:18 [employer] HOME [employer] Tu Landeros MD [facility] CPT-38414 Level 3 Est. Patient 10:06:54 [employer] Miranda Farah APRN [facility] CPT-51709 Level 4 Est. Patient 13:50:18 [employer] Tu Landeros MD [facility] CPT-05083 Level 3 Est. Patient 10:30:04 CDT Tu Landeros MD [facility] CPT-72313 Level 4 Est. Patient 11:03:38 CDT Tu Landeros MD [facility] CPT-22923 Level 3 Est. Patient 10:20:44 CDT Fab Morales DO [facility] CPT-05244 Level 4 Est. Patient 14:38:57 CDT Tu Landeros MD [facility] CPT-49666 Level 4 Est. Patient 14:27:39 [employer] Tu Landeros MD [facility] CPT-62966 Level 4 Est. Patient 09:45:25 CDT Tu Landeros MD [facility] CPT-27302 Level 4 Est. Patient 09:05:20 [employer] HOME [employer] Tu Landeros MD [facility] CPT-37597 Level 4 Est. Patient 14:09:06 CDT Tu Landeros MD [facility] CPT-40377 Level 3 Est. Patient 13:36:54 CDT Tu Landeros MD [facility] CPT-75910 Level 3 Est. Patient 08:59:14 CDT Tu Landeros MD [facility] CPT-42778 Level 3 Est. Patient 13:48:35 CDT Fab Morales DO [facility] CPT-31112 Level 4 Est. Patient 10:05:48 CDT Tu Landeros MD [facility] CPT-39716 Level 3 Est. Patient 13:38:42 CDT Marek BANKS [facility] CPT-25042 Level 5 Est. Patient 08:08:39 CDT Jerrica FRANCIS [facility] CPT-24112 Level 4 Est. Patient 14:23:38 CDT Tu Landeros MD [facility] CPT-55225 Level 3 Est. Patient 11:44:04 CDT Tu Landeros MD [facility] CPT-75606 Level 3 Est. Patient 11:03:20 [employer] Tu Landeros MD [facility] CPT-94298 Level 3 Est. Patient 11:03:14 [employer] HOME [employer]ER Tu Landeros MD [facility] CPT-12838 Level 3 Est. Patient 12:42:49 CDT Tu Landeros MD [facility] CPT-14353 Level 3 Est. Patient 11:52:06 CDT Tu Landeros MD [facility] CPT-06851 Level 3 Est. Patient 13:58:11 CDT Tu Landeros MD [facility] CPT-28471 Level 3 Est. Patient 17:50:07 CDT Fab Morales DO [facility] CPT-35534 Level 3 Est. Patient 12:06:29 CDT Elvira Cervantes MD [facility] CPT-39731 Level 3 Est. Patient 15:50:32 CDT Tu Landeros MD [facility] CPT-90309 Level 4 Est. Patient 16:08:29 CDT Tu Landeros MD [facility] CPT-19958 Level 3 Est. Patient 16:04:19 CDT Tu Landeros MD [facility] CPT-60413 Level 3 Est. Patient 11:22:30 [employer] Tu Landeros MD [facility] CPT-46065 Level 4 Est. Patient 16:24:02 [employer] HOME [employer] Tu Landeros MD [facility] CPT-42906 Level 3 Est. Patient 17:21:23 [employer] Tu Landeros MD [facility] Procedures Code Procedure Name Date Entry Date Standard Description CPT-43083 Shoulder, right, comp min 2V - XRAY USE ONLY 13:50:22 CDT CPT-G0009 Administration of Pneumococcal Vaccine 15:08:26 CDT CPT-69673 Prevnar 13 Intramuscular Suspension 15:08:26 CDT 10/08 CPT-G0439 [facility] Annual Wellness Exam 14:29:22 CDT CPT-05677 Venipuncture Draw Fee 13:15:35 CDT CPT-17958 Magnesium - LAB USE ONLY 11:14:20 [employer] CPT-66037 Lipid - LAB USE ONLY 11:14:20 [employer] CPT-31083 HGBA1C - LAB USE ONLY 11:14:20 [employer] CPT-52871 CMP - LAB USE ONLY 11:14:19 [employer] CPT-15373 CBC - LAB USE ONLY 11:14:19 [employer] CPT-15851 Venipuncture Draw Fee 11:14:18 [employer] CPT-09509 First Vx - Ix admin for Medicare patients 16:46:52 CDT CPT-64235 Fluzone Preservative Free Intramuscular Suspension 16:46 :51 CDT CPT-64013 CBC - LAB USE ONLY 17:14:46 CDT CPT-77588 HGBA1C - LAB USE ONLY 17:14:46 CDT CPT-42810 Venipuncture Draw Fee 17:14:46 CDT CPT-G0438 Initial Annual Wellness Exam 14:13:04 CDT CPT-48045 Breathing Tx 10:06:54 [employer] CPT-70977 Postop F/U Visit 10:02:45 CDT CPT-LR Lesion Removal 09:02:56 CDT CPT-JTINJ Asp/Joint Injection 15:51:27 [employer] CPT-OV Office Visit 15:52:02 [employer] CPT-OV Office Visit 15:45:11 CDT CPT-000 Give Zostavax 14:09:06 CDT CPT-41696 Administration single or [facility] oral 15 :19:04 CDT CPT-26612 Zoster Vaccine (Zostavax) 15:19:04 CDT CPT-92219 Administration single or combination vaccine inc oral 20 :51:03 CDT CPT-22077 Influenza split virus > age 3 20:51:03 CDT CPT-90412 No Charge Offi Visit 14:52:03 CDT CPT-OV Office Visit 14:57:43 CDT CPT-OV Office Visit 15:22:32 CDT CPT-92404 Administration single or combination vaccine inc oral 11 :33:15 CDT CPT-49414 Influenza split virus > age 3 11:33:15 CDT
--- OUTSIDE RECORDS SUMMARY | 2018-04-25 14:08 | XMS REPORT | Clinical Summary ---
Author Author Admin, SACHI Organization [employer] Address Unknown Phone Unavailable Allergies, Adverse [...] and unspecified hyperlipidemia POSTMENOPAUSAL BLEEDING 627.1 Resolved Evlira Cervantes MD PhD Postmenopausal bleeding DIABETES MELLITUS, [...] Knee pain, left, acute 719.46 Resolved Tu Landeors MD Pain in joint involving lower leg [...] AND OTHER NONSPECIFIC SKIN ERUPTION ICD-782.1 Inactive uT Landeros MD FATIGUE ICD-780.79 Inactive Tu Landeros [...] 1 po BID PRN Pain DICLOFENAC SODIUM 37300870620 Active Tu Landeros MD Active GABAPENTIN 100 MG CAPS 1 po TID GABAPENTIN 71913936330 Active Tu Landeros MD Active DICLOFENAC SODIUM 50 MG ORAL TBEC 1 po BID PRN Pain DICLOFENAC SODIUM 76451446774 No Longer Active Tu Landeros MD Active CYCLOBENZAPRINE HCL 10 MG ORAL TABS 1 po TID PRN Muscle Spasm CYCLOBENZAPRINE HCL 55059034976 No Longer Active Tu Landeros MD Active INVOKANA 100 MG ORAL TABS 1 po qd CANAGLIFLOZIN 87042052601 Active Tu Landeros MD Active GLIPIZIDE 5 MG ORAL TABS 1 po qd GLIPIZIDE 28477400782 No Longer Active Tu Landeros MD Active VENLAFAXINE HCL 75 MG ORAL TABS 1 po BID VENLAFAXINE HCL 55452273740 Active Tu Landeros MD Active GLIMEPIRIDE 1 MG ORAL TABS 1 po qd GLIMEPIRIDE 85161444683 No Longer Active Tu Landeros MD Active TRUE METRIX BLOOD GLUCOSE TEST INVITR STRP Test blood sugar BID Dx: E11.9 GLUCOSE BLOOD 25797332465 Active Tu Landeros MD Active TRUE METRIX AIR GLUCOSE METER W/DEVICE KIT Test blood glucose BID Dx: E11.9 BLOOD GLUCOSE MONITORING SUPPL 82457288523 Active Tu Landeros MD Active TRUETEST TEST INVITR STRP test blood sugar twice daily. DX 250.0 GLUCOSE BLOOD 75810831442 No Longer Active Mirna Stanley LPN Active TRUEDRAW LANCING DEVICE MISC test blood sugar twice daily dx: 250.00 LANCET DEVICES 70725391391 No Longer Active Mirna Stanley LPN Active ENALAPRIL MALEATE 20 MG TABS 2 po qd ENALAPRIL MALEATE 30783395650 Active Lesli Kellogg APRN Active SUPER B COMPLEX/VITAMIN C TABS 1 qd B COMPLEX-C 33759596543 No Longer Active Tu Landeros MD Active ASPIRIN EC 81 MG ORAL TBEC 1 po qd ASPIRIN 09980803758 Active Tu Landeros MD Active GLUCOSAMINE 500 MG TABS 2 po qd GLUCOSAMINE Active Tu Landeros MD Active SIMVASTATIN 40 MG TABS 0.5 po qHS SIMVASTATIN 36748997041 Active Tu Landeros MD Active FISH OIL 1000 MG CAPS 1 po qd OMEGA-3 FATTY ACIDS 08041442174 Active Tu Landeros MD Active METFORMIN HCL 1000 MG TABS 1 po BID METFORMIN HCL 32415222893 Active Tu Landerso MD Active KLOR-CON 10 10 MEQ CR-TABS 2 po qd POTASSIUM CHLORIDE 44464956546 Active Tu Landeros MD Active FUROSEMIDE 40 MG TAB 1 po qd FUROSEMIDE 19278578454 Active Tu Landeros MD Active REQUIP 2 MG ORAL TABS 1 po qHS PRN Restless legs ROPINIROLE HCL 61289080014 Active Tu Landeros MD Active REQUIP 2 MG TABS Take one tablet at bedtime prn ROPINIROLE HCL 27144262053 No Longer Active Tu Landeros MD Active VENTOLIN HFA 108 (90 BASE) MCG/ACT AERS 1-2 puffs every 4 hours if needed for cough/congestion ALBUTEROL SULFATE 57498950939 No Longer Active Ambika Aden APRN Active ZITHROMAX 250 MG TAB 2 po today, then 1 po q days 2-5 AZITHROMYCIN 41726755778 No Longer Active Miranda Suresh APRN Active FLONASE 50 MCG/ACT SUSP 1 spray each nostril twice daily until bottle empty FLUTICASONE PROPIONATE 70960790740 No Longer Active Tu Landeros MD Active COLACE 100 MG CAP 1 po BID PRN Constipation DOCUSATE SODIUM 45645563153 Active Tu Landeros MD Active TRUERESULT BLOOD GLUCOSE W/DEVICE KIT test blood sugar twice daily dx 250.00 BLOOD GLUCOSE MONITORING SUPPL 17935356057 No Longer Active Tu Landeros MD Active TRUEDRAW LANCING DEVICE MISC Test twice a day dx 250.0 LANCET DEVICES 17625418149 No Longer Active Tu Landeros MD Active PREDNISONE 20 MG TAB 2 tablets once daily for 2 days, then 1 tablet once daily for 2 days PREDNISONE 95735931282 No Longer Active Tu Landeros MD Active DICLOFENAC SODIUM 50 MG TBEC 1 tablet by mouth three times a day as needed DICLOFENAC SODIUM 52596458750 No Longer Active Fab Morales DO Active EMBRACE BLOOD GLUCOSE TEST STRP test blood sugar twice daily DX 250.0 2014 GLUCOSE BLOOD 63252718412 No Longer Active Tu Landeros MD Active TRUETEST TEST STRP test blood sugar three times daily dx: 250.00 GLUCOSE BLOOD 36398957404 No Longer Active Suze Nicole RMMahendra Active TRUERESULT BLOOD GLUCOSE W/DEVICE KIT use to test blood sugar tid dx: 250.00 BLOOD GLUCOSE MONITORING SUPPL 47302490267 No Longer Active Suze Corey RMA Active ALIGN 4 MG CAPS 1 tid PROBIOTIC PRODUCT 45351207673 No Longer Active Shaun Sy MD Active CIPRO 500 MG TABS 1 bid x 14 days start 09-28-13 CIPROFLOXACIN HCL 63977794304 No Longer Active Shaun Sy MD Active TRAMADOL HCL 50 MG TABS 1-2 tablets every 6 hours as needed for pain TRAMADOL HCL 78670410280 Active Tu Landeros MD Active HYDROCODONE-ACETAMINOPHEN 5-325 MG TABS 1 tab by mouth every 6 hours as needed for pain HYDROCODONE-ACETAMINOPHEN 80001771964 No Longer Active Tu Landeros MD Active OMEPRAZOLE 20 MG CPDR 1 po q a.m. OMEPRAZOLE 02201303305 Active Fab Morales DO Active GABAPENTIN 100 MG CAPS 1 po bid GABAPENTIN 16328774947 No Longer Active Tu Landeros MD Active B-12 100 MCG TABS Take one by mouth daily CYANOCOBALAMIN 29976837019 No Longer Active Tu Landeros MD Active BACTRIM DS 800-160 MG TABS 1 bid x 14 day start 09-28-13 SULFAMETHOXAZOLE-TRIMETHOPRIM 78162190732 No Longer Active Tu Landeros MD Active CARVEDILOL 12.5 MG TABS 1 po BID CARVEDILOL 61253456591 Active Lesli Kellogg APRN Active TRILIPIX 135 MG CPDR 1 q hs CHOLINE FENOFIBRATE 73073762551 Active Tu Landeros MD Active FENOFIBRATE 145 MG TABS 1 po qd FENOFIBRATE 29066247664 No Longer Active JASPREET Perez Active OMEPRAZOLE 20 MG TBEC 1 PO 30 MIN BEFORE 1ST MEAL OMEPRAZOLE 92924005910 No Longer Active JASPREET Perez Active SIMVASTATIN 40 MG TABS Take one by mouth daily SIMVASTATIN 58091669706 No Longer Active JASPREET Perez Active VENLAFAXINE HCL 75 MG TABS 1 po BID VENLAFAXINE HCL 65923718497 No Longer Active JASPREET Perez Active CIPRO 500 MG TAB 1 tablet by mouth twice daily CIPROFLOXACIN HCL 65218813440 No Longer Active Tu Landeros MD Active VENLAFAXINE HCL 37.5 MG TABS 1 po BID VENLAFAXINE HCL 12597775524 No Longer Active Suzebianca Nicole RMA Active LAMISIL 250 MG TAB 1 po qd TERBINAFINE HCL 86753162956 No Longer Active Tu Landeros MD Active LORTAB 5 5-500 MG TABS 1/2 to 1 tablet by mouth every 4 hours as needed for pain HYDROCODONE-ACETAMINOPHEN 59821041797 No Longer Active Tu Landeros MD Active HYDROCODONE-ACETAMINOPHEN 5-500 MG TABS take one po Q 4-6 hours prn HYDROCODONE-ACETAMINOPHEN 47578865929 No Longer Active Tu Landeros MD Active BACTRIM DS 800-160 MG TABS 1 po BID x 7 days SULFAMETHOXAZOLE-TRIMETHOPRIM 30914882853 No Longer Active Tu Landeros MD Active VENLAFAXINE HCL 75 MG TABS 1 po BID VENLAFAXINE HCL 13902306107 No Longer Active Elvira Cervantes MD PhD Active TRAMADOL HCL 50 MG TABS 1 tablets every 6 hours as needed for pain TRAMADOL HCL 94399758231 No Longer Active Tu Landeros MD Active ACCU-CHEK FASTCLIX LANCETS MISC Use to check bloodsugar three times daily as needed LANCETS 79753418604 No Longer Active Tu Landeros MD Active ACCU-CHEK KEYONA PLUS STRP Use for testing bloodsugars three times daily as needed GLUCOSE BLOOD 17398570257 No Longer Active Tu Landeros MD Active ACCU-CHEK KEYONA PLUS W/DEVICE KIT Use for testing bloodsugars three times daily as needed BLOOD GLUCOSE MONITORING SUPPL 96481445301 No Longer Active Tu Landeros MD Active SPIRONOLACTONE 25 MG TAB 0.5 tablet by mouth daily SPIRONOLACTONE 61765871716 No Longer Active Tu Landeros MD Active ALPRAZOLAM 0.5 MG TABS 1 tab every 6hrs as needed ALPRAZOLAM 60363560524 No Longer Active Tu Landeros MD Active AUGMENTIN 875-125 MG TAB 1 tab by mouth twice daily with food AMOXICILLIN-POT CLAVULANATE 66329224651 No Longer Active Tu Landeros MD Active PREDNISONE 20 MG TAB 2 tabs daily for 3 days, 1 tab daily for 3 days, 1/2 tab daily for 2 days PREDNISONE 86896886433 No Longer Active Tu Landeros MD Active XANAX 0.5 MG TABS 1 tablet every 6 hrs prn ALPRAZOLAM 22632824274 No Longer Active Tu Landeros MD Active PREDNISONE 20 MG TAB 2 tabs daily for 3 days, 1 tab daily for 3 days, 1/2 tab daily for 2 days PREDNISONE 70327546492 No Longer Active Tu Landeros MD Active TRIAMCINOLONE ACETONIDE 0.1 % OINT Apply to affected areas TID for up to 2 weeks TRIAMCINOLONE ACETONIDE 10517331836 No Longer Active Tu Landeros MD Active LORTAB 5 5-500 MG TABS 1/2 to 1 tablet by mouth every 4 hours as needed for pain HYDROCODONE-ACETAMINOPHEN 13660177628 No Longer Active Tu Landeros MD Active MULTIVITAMINS TABS Take one by mouth daily MULTIPLE VITAMIN 65771087595 No Longer Active Tu Landeros MD Active MELATONIN 5 MG TABS Take one by mouth daily MELATONIN 33239450890 No Longer Active Tu Landeros MD Active SOMA 350 MG TAB 1 po q 6 hours prn spasm CARISOPRODOL 31831909844 No Longer Active Tu Landeros MD Active MECLIZINE HCL 25 MG CHEW TAB 1 four times a day as needed for dizziness 08/05 MECLIZINE HCL 31960083554 No Longer Active Fab Morales DO Active ANGEL BREEZE 2 TEST DISK test tid prn GLUCOSE BLOOD 09566846472 No Longer Active Negra Scott RN Active REGLAN 10 MG TAB 1 po TID PRN Nausea METOCLOPRAMIDE HCL 71250628790 No Longer Active Tu Landeros MD Active METFORMIN HCL 500 MG TABS 1 PO BID METFORMIN HCL 96706114744 No Longer Active Tu Landeros MD Active AMBIEN 10 MG TAB 1 tab by mouth at bedtime as needed for sleep ZOLPIDEM TARTRATE 84762053442 No Longer Active Tu Landeros MD Active FLUOXETINE HCL 40 MG CAPS 1 po q day FLUOXETINE HCL 86794080801 No Longer Active Mayra Terry Active TRILIPIX 135 MG CPDR 1 po qd CHOLINE FENOFIBRATE 66098299562 No Longer Active Tu Landeros MD Active AMBIEN 10 MG TAB 1 tab by mouth at bedtime as needed for sleep AMBIEN 10 MG TAB 318531 ZOLPIDEM TARTRATE Inactive METFORMIN HCL 500 MG TABS 1 PO BID METFORMIN HCL 500 MG TABS 929784 METFORMIN HCL Inactive REGLAN 10 MG TAB 1 po TID PRN Nausea REGLAN 10 MG TAB 930127 METOCLOPRAMIDE HCL Inactive MECLIZINE HCL 25 MG CHEW TAB 1 four times a day as needed for dizziness 08/05 MECLIZINE HCL 25 MG CHEW TAB 299568 MECLIZINE HCL Inactive SOMA 350 MG TAB 1 po q 6 hours prn spasm SOMA 350 MG TAB 565867 CARISOPRODOL Inactive MELATONIN 5 MG TABS Take one by mouth daily MELATONIN 5 MG TABS 346833 MELATONIN Inactive MULTIVITAMINS TABS Take one by mouth daily MULTIVITAMINS TABS MULTIPLE VITAMIN Inactive LORTAB 5 5-500 MG TABS 1/2 to 1 tablet by mouth every 4 hours as needed for pain LORTAB 5 5-500 MG TABS 294017 HYDROCODONE- ACETAMINOPHEN Inactive XANAX 0.5 MG TABS 1 tablet every 6 hrs prn XANAX 0.5 MG TABS 565998 ALPRAZOLAM Inactive AUGMENTIN 875-125 MG TAB 1 tab by mouth twice daily with food AUGMENTIN 875-125 MG TAB 593900 AMOXICILLIN-POT CLAVULANATE Inactive ALPRAZOLAM 0.5 MG TABS 1 tab every 6hrs as needed ALPRAZOLAM 0.5 MG TABS 364946 ALPRAZOLAM Inactive SPIRONOLACTONE 25 MG TAB 0.5 tablet by mouth daily SPIRONOLACTONE 25 MG TAB 071085 SPIRONOLACTONE Inactive ACCU-CHEK KEYONA PLUS W/DEVICE KIT Use for testing bloodsugars three times daily as needed ACCU-CHEK KEYONA PLUS W/DEVICE KIT BLOOD GLUCOSE MONITORING SUPPL Inactive ACCU-CHEK KEYONA PLUS STRP Use for testing bloodsugars three times daily as needed ACCU-CHEK KEYONA PLUS STRP GLUCOSE BLOOD Inactive ACCU-CHEK FASTCLIX LANCETS MISC Use to check bloodsugar three times daily as needed ACCU-CHEK FASTCLIX LANCETS MISC 67297985993 LANCETS Inactive TRAMADOL HCL 50 MG TABS 1 tablets every 6 hours as needed for pain TRAMADOL HCL 50 MG TABS 052762 TRAMADOL HCL Inactive VENLAFAXINE HCL 75 MG TABS 1 po BID VENLAFAXINE HCL 75 MG TABS 149566 VENLAFAXINE HCL Inactive HYDROCODONE-ACETAMINOPHEN 5-500 MG TABS take one po Q 4-6 hours prn HYDROCODONE-ACETAMINOPHEN 5-500 MG TABS 907589 HYDROCODONE- ACETAMINOPHEN Inactive LORTAB 5 5-500 MG TABS 1/2 to 1 tablet by mouth every 4 hours as needed for pain LORTAB 5 5-500 MG TABS 074334 HYDROCODONE- ACETAMINOPHEN Inactive LAMISIL 250 MG TAB 1 po qd LAMISIL 250 MG TAB 580728 TERBINAFINE HCL Inactive VENLAFAXINE HCL 37.5 MG TABS 1 po BID VENLAFAXINE HCL 37.5 MG TABS 457924 VENLAFAXINE HCL Inactive CIPRO 500 MG TAB 1 tablet by mouth twice daily CIPRO 500 MG TAB 503452 CIPROFLOXACIN HCL Inactive VENLAFAXINE HCL 75 MG TABS 1 po BID VENLAFAXINE HCL 75 MG TABS 693603 VENLAFAXINE HCL Inactive SIMVASTATIN 40 MG TABS Take one by mouth daily SIMVASTATIN 40 MG TABS 019755 SIMVASTATIN Inactive OMEPRAZOLE 20 MG TBEC 1 PO 30 MIN BEFORE 1ST MEAL OMEPRAZOLE 20 MG TBEC 960236 OMEPRAZOLE Inactive FENOFIBRATE 145 MG TABS 1 po qd FENOFIBRATE 145 MG TABS 167288 FENOFIBRATE Inactive BACTRIM DS 800-160 MG TABS 1 bid x 14 day start 09-28-13 BACTRIM DS 800-160 MG TABS 554828 SULFAMETHOXAZOLE-TRIMETHOPRIM Inactive B-12 100 MCG TABS Take one by mouth daily B-12 100 MCG TABS CYANOCOBALAMIN Inactive GABAPENTIN 100 MG CAPS 1 po bid GABAPENTIN 100 MG CAPS 024729 GABAPENTIN Inactive HYDROCODONE-ACETAMINOPHEN 5-325 MG TABS 1 tab by mouth every 6 hours as needed for pain HYDROCODONE-ACETAMINOPHEN 5-325 MG TABS 933971 HYDROCODONE-ACETAMINOPHEN Inactive CIPRO 500 MG TABS 1 bid x 14 days start 09-28-13 CIPRO 500 MG TABS 449601 CIPROFLOXACIN HCL Inactive ALIGN 4 MG CAPS [...] as needed DICLOFENAC SODIUM 50 MG TBEC 872861 DICLOFENAC SODIUM Inactive PREDNISONE 20 MG TAB 2 tablets once daily for 2 days, then 1 tablet once daily for 2 days PREDNISONE 20 MG TAB 293868 PREDNISONE Inactive TRUEDRAW LANCING DEVICE MISC Test twice a day dx 250.0 TRUEDRAW LANCING DEVICE MISC LANCET DEVICES Inactive TRUERESULT BLOOD GLUCOSE W/DEVICE KIT test blood sugar twice daily dx 250.00 TRUERESULT BLOOD GLUCOSE W/DEVICE KIT BLOOD GLUCOSE MONITORING SUPPL Inactive FLONASE 50 MCG/ACT SUSP 1 spray each nostril twice daily until bottle empty FLONASE 50 MCG/ACT SUSP 9770545 FLUTICASONE PROPIONATE Inactive VENTOLIN HFA 108 (90 BASE) MCG/ACT AERS 1-2 puffs every 4 hours if needed for cough/congestion VENTOLIN HFA 108 (90 BASE) MCG/ACT AERS ALBUTEROL SULFATE Inactive REQUIP 2 MG TABS Take one tablet at bedtime prn REQUIP 2 MG TABS 007689 ROPINIROLE HCL Inactive SUPER B COMPLEX/VITAMIN C TABS 1 qd SUPER B COMPLEX/ VITAMIN C TABS 63977337259 B COMPLEX-C Inactive TRUEDRAW LANCING DEVICE MISC test blood sugar twice daily dx: 250.00 TRUEDRAW LANCING DEVICE MISC LANCET DEVICES Inactive TRUETEST TEST INVITR STRP test blood sugar twice daily. DX 250.0 TRUETEST TEST INVITR STRP GLUCOSE BLOOD Inactive CYCLOBENZAPRINE HCL 10 MG ORAL TABS 1 po TID PRN Muscle Spasm CYCLOBENZAPRINE HCL 10 MG ORAL TABS 859514 CYCLOBENZAPRINE HCL Inactive DICLOFENAC SODIUM 50 MG ORAL TBEC 1 po BID PRN Pain DICLOFENAC SODIUM 50 MG ORAL TBEC 948399 DICLOFENAC SODIUM Inactive TRIAMCINOLONE ACETONIDE 0.1 % OINT Apply to affected areas TID for up to 2 weeks TRIAMCINOLONE ACETONIDE 0.1 % OINT 8010059 TRIAMCINOLONE ACETONIDE Inactive PREDNISONE 20 MG TAB 2 tabs daily for 3 days, 1 tab daily for 3 days, 1/2 tab daily for 2 days PREDNISONE 20 MG TAB 770877 PREDNISONE Inactive PREDNISONE 20 MG TAB 2 tabs daily for 3 days, 1 tab daily for 3 days, 1/2 tab daily for 2 days PREDNISONE 20 MG TAB 601128 PREDNISONE Inactive BACTRIM DS 800-160 MG TABS 1 po BID x 7 days BACTRIM DS 800-160 MG TABS 160671 SULFAMETHOXAZOLE-TRIMETHOPRIM Inactive ZITHROMAX 250 MG TAB 2 po today, then 1 po q days 2-5 ZITHROMAX 250 MG TAB 254369 AZITHROMYCIN Inactive Advance Directives Directive Description Start Date DISCUSSED WITH PATIENT -- NO DECISION MADE Immunizations Vaccine Administration Date Value Standard Description Seasonal influenza vaccine, injectable, containing preservative, for > 3 years old (Afluria, FluLaval, Fluzone, Fluvirin, Fluarix, Agriflu(>=18 yo)) Fluzone (>3 yrs.) [[id number]] Influenza, seasonal, injectable influenza immunization (Flu Vax) has been administered 02/22/2012 influenza virus vaccine, unspecified formulation Seasonal influenza vaccine, injectable, containing preservative, for > 3 years old (Afluria, FluLaval, Fluzone, Fluvirin, Fluarix, Agriflu(>=18 yo)) Fluzone (>3 yrs.) [[id number]] Influenza, seasonal, injectable Vital Signs Date Name [...] Magnesium - Chemistry sodium, serum 143 mmol/L 577-892 5284/01/10 carbon dioxide, venous blood 28.0 mmol/L 21.0-32.0 potassium, serum 4.5 mmol/L 3.5-5.2 chloride, serum 104 mmol/L 98-107 blood glucose 158 mg/dL 65-110 urea nitrogen, blood 23 mg/dL 7-18 creatinine, serum 1.06 mg/dL 0.55-1.30 alanine aminotransferase (SGPT), serum 42 U/L 12-78 aspartate aminotransferase (SGOT), serum 32 U/L 15-37 calcium, serum 9.3 mg/dL 8.5-10.1 bilirubin, serum, total 0.20 mg/dL 0.00-1.00 cholesterol, serum 177 mg/dL 539-545 4448/01/10 triglyceride, serum, fasting 320 mg/dL 30-200 HDL cholesterol, serum 46 mg/dL 32-96 LDL cholesterol, serum 67 mg/dL 0-130 Lab Report: COMPREHENSIVE METABOLIC PANEL, LIPID PANEL, HEMOGLOBIN A1c - Chemistry cholesterol, serum 135 mg/dL [phone]/05/17 HDL cholesterol, serum 41 mg/dL > OR=46 [...] <30 Encounters Code Encounter Date Provider Facility CPT-16110 Level 3 Est. Patient 14:20:36 CDT Tu Landeros MD [facility] CPT-67779 Level 4 Est. Patient 14:28:34 CDT Tu Landeros MD [facility] CPT-20371 Level 3 Est. Patient 13:33:09 CDT Tu Landeros MD [facility] CPT-36387 Level 4 Est. Patient 14:29:21 CDT Tu Landeros MD [facility] CPT-93269 Level 4 Est. Patient 09:08:17 [employer] Tu Landeros MD [facility] CPT-68348 Level 4 Est. Patient 14:40:19 CDT Tu Landeros MD [facility] CPT-65840 Level 4 Est. Patient 14:06:04 [employer] Tu Landeros MD [facility] CPT-25153 Level 3 Est. Patient 14:05:18 [employer] Tu Landeros MD [facility] CPT-38790 Level 3 Est. Patient 10:06:54 [employer] Miranda Suresh APRN [facility] CPT-58552 Level 4 Est. Patient 13:50:18 [employer] Tu Landeros MD [facility] CPT-58353 Level 3 Est. Patient 10:30:04 CDT Tu Landeros MD [facility] CPT-33541 Level 4 Est. Patient 11:03:38 CDT Tu Landeros MD [facility] CPT-95549 Level 3 Est. Patient 10:20:44 CDT Fab Morales DO [facility] CPT-97031 Level 4 Est. Patient 14:38:57 CDT Tu Landeros MD [facility] CPT-63908 Level 4 Est. Patient 14:27:39 [employer] Tu Landeros MD [facility] CPT-63400 Level 4 Est. Patient 09:45:25 CDT Tu Landeros MD [facility] CPT-86465 Level 4 Est. Patient 09:05:20 [employer] Tu Landeros MD [facility] CPT-21545 Level 4 Est. Patient 14:09:06 CDT Tu Landeros MD [facility] CPT-50604 Level 3 Est. Patient 13:36:54 CDT Tu Landeros MD [facility] CPT-34053 Level 3 Est. Patient 08:59:14 CDT Tu Landeros MD [facility] CPT-95937 Level 3 Est. Patient 13:48:35 CDT Fab Morales DO [facility] CPT-90093 Level 4 Est. Patient 10:05:48 CDT Tu Landeros MD [facility] CPT-23860 Level 3 Est. Patient 13:38:42 CDT Marek BANKS [facility] CPT-02948 Level 5 Est. Patient 08:08:39 CDT Jerrica FRANCIS [facility] CPT-04311 Level 4 Est. Patient 14:23:38 CDT Tu Landeros MD [facility] CPT-67940 Level 3 Est. Patient 11:44:04 CDT Tu Landeros MD [facility] CPT-09554 Level 3 Est. Patient 11:03:20 [employer] Tu Landeros MD [facility] CPT-13475 Level 3 Est. Patient 11:03:14 [employer] Tu Landeros MD [facility] CPT-10599 Level 3 Est. Patient 12:42:49 CDT Tu Landeros MD [facility] CPT-19527 Level 3 Est. Patient 11:52:06 CDT Tu Landeros MD [facility] CPT-28243 Level 3 Est. Patient 13:58:11 CDT Tu Landeros MD [facility] CPT-00243 Level 3 Est. Patient 17:50:07 CDT Fab Morales DO [facility] CPT-08901 Level 3 Est. Patient 12:06:29 CDT Elvira Cervantes MD, PhD [facility] CPT-37027 Level 3 Est. Patient 15:50:32 CDT uT Landeros MD [facility] CPT-40039 Level 4 Est. Patient 16:08:29 CDT Tu Landeros MD [facility] CPT-64209 Level 3 Est. Patient 16:04:19 CDT Tu Landeros MD [facility] CPT-63723 Level 3 Est. Patient 11:22:30 [employer] Tu Landeros MD [facility] CPT-05667 Level 4 Est. Patient 16:24:02 [employer] Tu Landeros MD [facility] CPT-58536 Level 3 Est. Patient 17:21:23 [employer] Tu Landeros MD [facility] Procedures Code Procedure Name Date Entry Date Standard Description CPT-17509 Shoulder, right, comp min 2V - XRAY USE ONLY 13:50:22 CDT CPT-G0009 Administration of Pneumococcal Vaccine 15:08:26 CDT CPT-01507 Prevnar 13 Intramuscular Suspension 15:08:26 CDT 10/08 CPT-G0439 [facility] Annual Wellness Exam 14:29:22 CDT CPT-79965 Venipuncture Draw Fee 13:15:35 CDT CPT-13985 Magnesium - LAB USE ONLY 11:14:20 [employer] CPT-92430 Lipid - LAB USE ONLY 11:14:20 [employer] CPT-99188 HGBA1C - LAB USE ONLY 11:14:20 [employer] CPT-65407 CMP - LAB USE ONLY 11:14:19 [employer] CPT-60042 CBC - LAB USE ONLY 11:14:19 [employer] CPT-81210 Venipuncture Draw Fee 11:14:18 [employer] CPT-68377 First Vx - Ix admin for Medicare patients 16:46:52 CDT CPT-16760 Fluzone Preservative Free Intramuscular Suspension 16:46 :51 CDT CPT-20327 CBC - LAB USE ONLY 17:14:46 CDT CPT-67278 HGBA1C - LAB USE ONLY 17:14:46 CDT CPT-07825 Venipuncture Draw Fee 17:14:46 CDT CPT-G0438 Initial Annual Wellness Exam 14:13:04 CDT CPT-88928 Breathing Tx 10:06:54 [employer] CPT-69830 Postop F/U Visit 10:02:45 CDT CPT-LR Lesion Removal 09:02:56 CDT CPT-JTINJ Asp/Joint Injection 15:51:27 [employer] CPT-OV Office Visit 15:52:02 [employer] CPT-OV Office Visit 15:45:11 CDT CPT-000 Give Zostavax 14:09:06 CDT CPT-17459 Administration single or combination vaccine inc oral 15 :19:04 CDT CPT-04731 Zoster Vaccine (Zostavax) 15:19:04 CDT CPT-19581 Administration single or combination vaccine inc oral 20 :51:03 CDT CPT-73270 Influenza split virus > age 3 20:51:03 CDT CPT-49250 No Charge Offi Visit 14:52:03 CDT CPT-OV Office Visit 14:57:43 CDT CPT-OV Office Visit 15:22:32 CDT CPT-51951 Administration single or combination vaccine inc oral 11 :33:15 CDT CPT-32607 Influenza split virus > age 3 11:33:15 CDT
--- OUTSIDE RECORDS SUMMARY | 2018-04-25 14:10 | XMS REPORT | Clinical Summary ---
Author Author Admin, SACHI Organization [employer] Address Unknown Phone Unavailable Allergies, Adverse Reactions, Alerts Allergy Name Reaction Description Start Date Severity Status Provider GLIMPERIDE Critical Active Lesli Kelolgg APRN AMBIEN migraine h/a Critical Active Luisa [...] SYRUP 5ml po q6hr PRN Cough PROMETHAZINE-CODEINE 39824483351 No Longer Active Tu Landeros MD Active AZITHROMYCIN 250 MG ORAL TABLET 2 po qd x 1, then 1 po qd x 4 AZITHROMYCIN 93641088406 No Longer Active Tu Landeros MD Active GUAIFENESIN ER 600 MG ORAL TABLET EXTENDED RELEASE 12 HOUR 1 twice a day as needed for congestion GUAIFENESIN 07314340640 No Longer Active Tu Landeros MD Active PREDNISONE 20 MG ORAL TABLET 2 po qd x 5 days PREDNISONE 56236005243 No Longer Active Tu Landeros MD Active FLUTICASONE PROPIONATE 50 MCG/ACT NASAL SUSPENSION 2 sprays/nostril qd PRN Congestion/Allergies FLUTICASONE PROPIONATE 79779897656 Active Tu Landeros MD Active NASONEX 50 MCG/ACT NASAL SUSPENSION 2 actuations in each nostril q day 07/15 MOMETASONE FUROATE 95175676558 No Longer Active Tu Landeros MD Active MAGNESIUM OXIDE 400 MG ORAL TABLET 1 po BID MAGNESIUM OXIDE 34059163248 Active Tu Landeros MD Active SIMVASTATIN 20 MG ORAL TABLET 0.5 po qHS SIMVASTATIN 71852123146 Active Tu Landeros MD Active DICLOFENAC SODIUM 75 MG ORAL TABLET DELAYED RELEASE 1 po BID PRN Pain DICLOFENAC SODIUM 45307465008 No Longer Active Tu Landeros MD Active GABAPENTIN 100 MG ORAL CAPSULE 1 po TID GABAPENTIN 59645174348 Active Tu Landeros MD Active DICLOFENAC SODIUM 50 MG ORAL TABLET DELAYED RELEASE 1 po BID PRN Pain DICLOFENAC SODIUM 29859385850 No Longer Active Tu Landeros MD Active CYCLOBENZAPRINE HCL 10 MG ORAL TABLET 1 po TID PRN Muscle Spasm CYCLOBENZAPRINE HCL 55412785875 No Longer Active Tu Landeros MD Active INVOKANA 100 MG ORAL TABLET 1 po qd CANAGLIFLOZIN 62863145165 Active Tu Landeros MD Active GLIPIZIDE 5 MG ORAL TABLET 1 po qd GLIPIZIDE 44336083410 No Longer Active Tu Landeros MD Active VENLAFAXINE HCL 75 MG ORAL TABLET 1 po BID VENLAFAXINE HCL 08910407066 Active Tu Landeros MD Active GLIMEPIRIDE 1 MG ORAL TABLET 1 po qd GLIMEPIRIDE 45520748127 No Longer Active Tu Landeros MD Active TRUE METRIX BLOOD GLUCOSE TEST IN VITRO STRIP Test blood sugar BID Dx: E11.9 GLUCOSE BLOOD 30179587078 Active Tu Landeros MD Active TRUE METRIX AIR GLUCOSE METER w/Device KIT Test blood glucose BID Dx: E11.9 BLOOD GLUCOSE MONITORING SUPPL 75789372007 Active Tu Landeros MD Active TRUETEST TEST IN VITRO STRIP test blood sugar twice daily. DX 250.0 GLUCOSE BLOOD 53466734310 No Longer Active Mirna Stalney LPN Active TRUEDRAW LANCING DEVICE test blood sugar twice daily dx: 250.00 LANCET DEVICES 44105478944 No Longer Active Mirna Stanley LPN Active ENALAPRIL MALEATE 20 MG ORAL TABLET 2 po qd ENALAPRIL MALEATE 39898176088 Active Tu Landeros MD Active SUPER B COMPLEX/VITAMIN C ORAL TABLET 1 qd B COMPLEX- C 96863261450 No Longer Active Tu aLnderos MD Active ASPIRIN EC 81 MG ORAL TABLET DELAYED RELEASE 1 po qd ASPIRIN 83604902951 Active Tu Landeros MD Active GLUCOSAMINE 500 MG TABS 2 po qd GLUCOSAMINE Active Tu Landeros MD Active FISH OIL 1000 MG ORAL CAPSULE 1 po qd OMEGA-3 FATTY ACIDS 61775420083 Active Tu Landeros MD Active METFORMIN HCL 1000 MG ORAL TABLET 1 po BID METFORMIN HCL 66319739586 Active Tu Landeros MD Active KLOR-CON 10 10 MEQ ORAL TABLET EXTENDED RELEASE 2 po qd POTASSIUM CHLORIDE 95435693741 Active Tu Landeros MD Active FUROSEMIDE 40 MG ORAL TABLET 1 po qd FUROSEMIDE 18870941948 Active Tu Landeros MD Active REQUIP 2 MG ORAL TABLET 1 po qHS PRN Restless legs ROPINIROLE HCL 30387086411 Active Tu Landeros MD Active REQUIP 2 MG ORAL TABLET Take one tablet at bedtime prn ROPINIROLE HCL 32326888897 No Longer Active Tu Landeros MD Active VENTOLIN HFA 108 (90 Base) MCG/ACT INHALATION AEROSOL SOLUTION 1-2 puffs every 4 hours if needed for cough/congestion ALBUTEROL SULFATE 63078086229 No Longer Active Ambika Aden APRN Active ZITHROMAX 250 MG ORAL TABLET 2 po today, then 1 po q days 2-5 AZITHROMYCIN 54355711512 No Longer Active Miranda Farah APRN Active FLONASE 50 MCG/ACT NASAL SUSPENSION 1 spray each nostril twice daily until bottle empty FLUTICASONE PROPIONATE 92560347212 No Longer Active Tu Landeros MD Active COLACE 100 MG ORAL CAPSULE 1 po BID PRN Constipation DOCUSATE SODIUM 42633555803 Active Tu Landeros MD Active TRUERESULT BLOOD GLUCOSE w/Device KIT test blood sugar twice daily dx 250.00 BLOOD GLUCOSE MONITORING SUPPL 29970781533 No Longer Active Tu Landeros MD Active TRUEDRAW LANCING DEVICE Test twice a day dx 250.0 LANCET DEVICES 44646408311 No Longer Active Tu Landeros MD Active PREDNISONE 20 MG ORAL TABLET 2 tablets once daily for 2 days, then 1 tablet once daily for 2 days PREDNISONE 59062634620 No Longer Active Tu Landeros MD Active DICLOFENAC SODIUM 50 MG ORAL TABLET DELAYED RELEASE 1 tablet by mouth three times a day as needed DICLOFENAC SODIUM 66991208183 No Longer Active Fab Morales DO Active EMBRACE BLOOD GLUCOSE TEST IN VITRO STRIP test blood sugar twice daily DX 250.0 GLUCOSE BLOOD 61022986548 No Longer Active Tu Landeros MD Active TRUETEST TEST IN VITRO STRIP test blood sugar three times daily dx: 250.00 GLUCOSE BLOOD 93595762447 No Longer Active Suze VOGEL Active TRUERESULT BLOOD GLUCOSE w/Device KIT use to test blood sugar tid dx: 250.00 BLOOD GLUCOSE MONITORING SUPPL 92318724068 No Longer Active Suze VOGEL Active ALIGN 4 MG ORAL CAPSULE 1 tid PROBIOTIC PRODUCT 10391508324 No Longer Active Shaun Sy MD Active CIPRO 500 MG ORAL TABLET 1 bid x 14 days start 09-28-13 CIPROFLOXACIN HCL 92022375909 No Longer Active Shaun Sy MD Active TRAMADOL HCL 50 MG ORAL TABLET 1-2 tablets every 6 hours as needed for pain TRAMADOL HCL 02709760460 Active Tu Landeros MD Active HYDROCODONE-ACETAMINOPHEN 5-325 MG ORAL TABLET 1 tab by mouth every 6 hours as needed for pain HYDROCODONE-ACETAMINOPHEN 96276597238 No Longer Active Tu Landeros MD Active OMEPRAZOLE 20 MG ORAL CAPSULE DELAYED RELEASE 1 po q a.m. OMEPRAZOLE 43070627449 Active Fab Morales DO Active GABAPENTIN 100 MG ORAL CAPSULE 1 po bid GABAPENTIN 15392141874 No Longer Active Tu Landeros MD Active B-12 100 MCG ORAL TABLET Take one by mouth daily CYANOCOBALAMIN 91575905207 No Longer Active Tu Landeros MD Active BACTRIM DS 800-160 MG ORAL TABLET 1 bid x 14 day start 09-28-13 SULFAMETHOXAZOLE-TRIMETHOPRIM 92595391089 No Longer Active Tu Landeros MD Active CARVEDILOL 12.5 MG ORAL TABLET 1 po BID CARVEDILOL 69904692218 Active Tu Landeros MD Active TRILIPIX 135 MG ORAL CAPSULE DELAYED RELEASE 1 q hs CHOLINE FENOFIBRATE 10980081393 Active Tu Landeros MD Active FENOFIBRATE 145 MG ORAL TABLET 1 po qd FENOFIBRATE 28206026602 No Longer Active JASPREET Perez Active OMEPRAZOLE 20 MG ORAL TABLET DELAYED RELEASE 1 PO 30 MIN BEFORE 1ST MEAL 2010 OMEPRAZOLE 38684405469 No Longer Active JASPREET Perez Active SIMVASTATIN 40 MG ORAL TABLET Take one by mouth daily SIMVASTATIN 88845852990 No Longer Active JASPREET Perez Active VENLAFAXINE HCL 75 MG ORAL TABLET 1 po BID VENLAFAXINE HCL 08044739860 No Longer Active JASPREET Perez Active CIPRO 500 MG ORAL TABLET 1 tablet by mouth twice daily CIPROFLOXACIN HCL 10969143568 No Longer Active Tu Landeros MD Active VENLAFAXINE HCL 37.5 MG ORAL TABLET 1 po BID VENLAFAXINE HCL 34377823780 No Longer Active Suze VOGEL Active LAMISIL 250 MG ORAL TABLET 1 po qd TERBINAFINE HCL 33820465442 No Longer Active Tu Landeros MD Active LORTAB 5-500 MG ORAL TABLET 1/2 to 1 tablet by mouth every 4 hours as needed for pain HYDROCODONE-ACETAMINOPHEN 93518184495 No Longer Active Tu Landeros MD Active HYDROCODONE-ACETAMINOPHEN 5-500 MG ORAL TABLET take one po Q 4-6 hours prn HYDROCODONE-ACETAMINOPHEN 98122576411 No Longer Active Tu Landeros MD Active BACTRIM DS 800-160 MG ORAL TABLET 1 po BID x 7 days SULFAMETHOXAZOLE-TRIMETHOPRIM 05327312225 No Longer Active Tu Landeros MD Active VENLAFAXINE HCL 75 MG ORAL TABLET 1 po BID VENLAFAXINE HCL 70127595335 No Longer Active Elvira Cervantes MD PhD Active TRAMADOL HCL 50 MG ORAL TABLET 1 tablets every 6 hours as needed for pain TRAMADOL HCL 77695678482 No Longer Active Tu Landeros MD Active ACCU-CHEK FASTCLIX LANCETS Use to check bloodsugar three times daily as needed LANCETS 20763668579 No Longer Active Tu Landeros MD Active ACCU-CHEK KEYONA PLUS IN VITRO STRIP Use for testing bloodsugars three times daily as needed GLUCOSE BLOOD 95989375417 No Longer Active Tu Landeros MD Active ACCU-CHEK KEYONA PLUS w/Device KIT Use for testing bloodsugars three times daily as needed BLOOD GLUCOSE MONITORING SUPPL 52665544452 No Longer Active Tu Landeros MD Active SPIRONOLACTONE 25 MG ORAL TABLET 0.5 tablet by mouth daily 09/09 SPIRONOLACTONE 81794316734 No Longer Active Tu Landeros MD Active ALPRAZOLAM 0.5 MG ORAL TABLET 1 tab every 6hrs as needed ALPRAZOLAM 47244548096 No Longer Active Tu Landeros MD Active AUGMENTIN 875-125 MG ORAL TABLET 1 tab by mouth twice daily with food AMOXICILLIN-POT CLAVULANATE 52922514979 No Longer Active Tu Landeros MD Active PREDNISONE 20 MG ORAL TABLET 2 tabs daily for 3 days, 1 tab daily for 3 days, 1/2 tab daily for 2 days PREDNISONE 44774273438 No Longer Active Tu Landeros MD Active XANAX 0.5 MG ORAL TABLET 1 tablet every 6 hrs prn ALPRAZOLAM 87167280056 No Longer Active Tu Landeros MD Active PREDNISONE 20 MG ORAL TABLET 2 tabs daily for 3 days, 1 tab daily for 3 days, 1/2 tab daily for 2 days PREDNISONE 96446905410 No Longer Active Tu Landeros MD Active TRIAMCINOLONE ACETONIDE 0.1 % EXTERNAL OINTMENT Apply to affected areas TID for up to 2 weeks TRIAMCINOLONE ACETONIDE 18179345601 No Longer Active Tu Landeros MD Active LORTAB 5-500 MG ORAL TABLET 1/2 to 1 tablet by mouth every 4 hours as needed for pain HYDROCODONE-ACETAMINOPHEN 60092739546 No Longer Active Tu Landeros MD Active MULTIVITAMINS TABS Take one by mouth daily MULTIPLE VITAMIN 34879992842 No Longer Active Tu Landeros MD Active MELATONIN 5 MG ORAL TABLET Take one by mouth daily MELATONIN 90105911567 No Longer Active Tu Landeros MD Active SOMA 350 MG ORAL TABLET 1 po q 6 hours prn spasm CARISOPRODOL 58293439838 No Longer Active Tu Landeros MD Active MECLIZINE HCL 25 MG ORAL TABLET CHEWABLE 1 four times a day as needed for dizziness MECLIZINE HCL 27192567846 No Longer Active Fab Morales DO Active ANGEL BREEZE 2 TEST IN VITRO DISK test tid prn GLUCOSE BLOOD 39731123483 No Longer Active Negra Scott RN Active REGLAN 10 MG ORAL TABLET 1 po TID PRN Nausea METOCLOPRAMIDE HCL 87005307679 No Longer Active Tu Landeros MD Active METFORMIN HCL 500 MG ORAL TABLET 1 PO BID METFORMIN HCL 97539598671 No Longer Active Tu Landeros MD Active AMBIEN 10 MG ORAL TABLET 1 tab by mouth at bedtime as needed for sleep 06/10 ZOLPIDEM TARTRATE 66374642303 No Longer Active Tu Landeros MD Active FLUOXETINE HCL 40 MG ORAL CAPSULE 1 po q day FLUOXETINE HCL 62564196646 No Longer Active Mayra Terry Active TRILIPIX 135 MG ORAL CAPSULE DELAYED RELEASE 1 po qd CHOLINE FENOFIBRATE 54643196560 No Longer Active Tu Landeros MD Active AMBIEN 10 MG ORAL TABLET 1 tab by mouth at bedtime as needed for sleep 06/10 AMBIEN 10 MG ORAL TABLET 393770 ZOLPIDEM TARTRATE Inactive METFORMIN HCL 500 MG ORAL TABLET 1 PO BID METFORMIN HCL 500 MG ORAL TABLET 959659 METFORMIN HCL Inactive REGLAN 10 MG ORAL TABLET 1 po TID PRN Nausea REGLAN 10 MG ORAL TABLET 838467 METOCLOPRAMIDE HCL Inactive MECLIZINE HCL 25 MG ORAL TABLET CHEWABLE 1 four times a day as needed for dizziness MECLIZINE HCL 25 MG ORAL TABLET CHEWABLE 309603 MECLIZINE HCL Inactive SOMA 350 MG ORAL TABLET 1 po q 6 hours prn spasm SOMA 350 MG ORAL TABLET 671064 CARISOPRODOL Inactive MELATONIN 5 MG ORAL TABLET Take one by mouth daily MELATONIN 5 MG ORAL TABLET 282796 MELATONIN Inactive MULTIVITAMINS TABS Take one by mouth daily MULTIVITAMINS TABS MULTIPLE VITAMIN Inactive LORTAB 5-500 MG ORAL TABLET 1/2 to 1 tablet by mouth every 4 hours as needed for pain LORTAB 5-500 MG ORAL TABLET HYDROCODONE- ACETAMINOPHEN Inactive XANAX 0.5 MG ORAL TABLET 1 tablet every 6 hrs prn XANAX 0.5 MG ORAL TABLET 578017 ALPRAZOLAM Inactive AUGMENTIN 875-125 MG ORAL TABLET 1 tab by mouth twice daily with food AUGMENTIN 875-125 MG ORAL TABLET 367491 AMOXICILLIN-POT CLAVULANATE Inactive ALPRAZOLAM 0.5 MG ORAL TABLET 1 tab every 6hrs as needed ALPRAZOLAM 0.5 MG ORAL TABLET 244286 ALPRAZOLAM Inactive SPIRONOLACTONE 25 MG ORAL TABLET 0.5 tablet by mouth daily 09/09 SPIRONOLACTONE 25 MG ORAL TABLET 926651 SPIRONOLACTONE Inactive ACCU-CHEK KEYONA PLUS w/Device KIT [...] times daily as needed ACCU-CHEK FASTCLIX LANCETS 19935822068 LANCETS Inactive TRAMADOL HCL 50 MG ORAL TABLET 1 tablets every 6 hours as needed for pain TRAMADOL HCL 50 MG ORAL TABLET 384989 TRAMADOL HCL Inactive VENLAFAXINE HCL 75 MG ORAL TABLET 1 po BID VENLAFAXINE HCL 75 MG ORAL TABLET 698845 VENLAFAXINE HCL Inactive HYDROCODONE-ACETAMINOPHEN 5-500 MG ORAL TABLET take one po Q 4-6 hours prn HYDROCODONE-ACETAMINOPHEN 5-500 MG ORAL TABLET HYDROCODONE-ACETAMINOPHEN Inactive LORTAB 5-500 MG ORAL TABLET 1/2 to 1 tablet by mouth every 4 hours as needed for pain LORTAB 5-500 MG ORAL TABLET HYDROCODONE- ACETAMINOPHEN Inactive LAMISIL 250 MG ORAL TABLET 1 po qd LAMISIL 250 MG ORAL TABLET 641450 TERBINAFINE HCL Inactive VENLAFAXINE HCL 37.5 MG ORAL TABLET 1 po BID VENLAFAXINE HCL 37.5 MG ORAL TABLET 170159 VENLAFAXINE HCL Inactive CIPRO 500 MG ORAL TABLET 1 tablet by mouth twice daily CIPRO 500 MG ORAL TABLET 743912 CIPROFLOXACIN HCL Inactive VENLAFAXINE HCL 75 MG ORAL TABLET 1 po BID VENLAFAXINE HCL 75 MG ORAL TABLET 478980 VENLAFAXINE HCL Inactive SIMVASTATIN 40 MG ORAL TABLET Take one by mouth daily SIMVASTATIN 40 MG ORAL TABLET 657851 SIMVASTATIN Inactive OMEPRAZOLE 20 MG ORAL TABLET DELAYED RELEASE 1 PO 30 MIN BEFORE 1ST MEAL 2010 OMEPRAZOLE 20 MG ORAL TABLET DELAYED RELEASE 254711 OMEPRAZOLE Inactive FENOFIBRATE 145 MG ORAL TABLET 1 po qd FENOFIBRATE 145 MG ORAL TABLET 376587 FENOFIBRATE Inactive BACTRIM DS 800-160 MG ORAL TABLET 1 bid x 14 day start 09-28-13 BACTRIM DS 800-160 MG ORAL TABLET 304530 SULFAMETHOXAZOLE- TRIMETHOPRIM Inactive B-12 100 MCG ORAL TABLET Take one by mouth daily B-12 100 MCG ORAL TABLET CYANOCOBALAMIN Inactive GABAPENTIN 100 MG ORAL CAPSULE 1 po bid GABAPENTIN 100 MG ORAL CAPSULE 537686 GABAPENTIN Inactive HYDROCODONE-ACETAMINOPHEN 5-325 MG ORAL TABLET 1 tab by mouth every 6 hours as needed for pain HYDROCODONE-ACETAMINOPHEN 5-325 MG ORAL TABLET 111356 HYDROCODONE-ACETAMINOPHEN Inactive CIPRO 500 MG ORAL TABLET 1 bid x 14 days start 09-28-13 CIPRO 500 MG ORAL TABLET 266564 CIPROFLOXACIN HCL Inactive ALIGN 4 MG ORAL [...] SODIUM 50 MG ORAL TABLET DELAYED RELEASE 116285 DICLOFENAC SODIUM Inactive PREDNISONE 20 MG ORAL TABLET 2 tablets once daily for 2 days, then 1 tablet once daily for 2 days PREDNISONE 20 MG ORAL TABLET 283629 PREDNISONE Inactive TRUEDRAW LANCING DEVICE Test twice a day dx 250.0 TRUEDRAW LANCING DEVICE LANCET DEVICES Inactive TRUERESULT BLOOD GLUCOSE w/Device KIT test blood sugar twice daily dx 250.00 TRUERESULT BLOOD GLUCOSE w/Device KIT BLOOD GLUCOSE MONITORING SUPPL Inactive FLONASE 50 MCG/ACT NASAL SUSPENSION 1 spray each nostril twice daily until bottle empty FLONASE 50 MCG/ACT NASAL SUSPENSION 2907200 FLUTICASONE PROPIONATE Inactive VENTOLIN HFA 108 (90 Base) MCG/ACT INHALATION AEROSOL SOLUTION 1-2 puffs every 4 hours if needed for cough/congestion VENTOLIN HFA 108 (90 Base) MCG/ACT INHALATION AEROSOL SOLUTION ALBUTEROL SULFATE Inactive REQUIP 2 MG ORAL TABLET Take one tablet at bedtime prn REQUIP 2 MG ORAL TABLET 420812 ROPINIROLE HCL Inactive SUPER B COMPLEX/VITAMIN C ORAL TABLET 1 qd SUPER B COMPLEX/VITAMIN C ORAL TABLET 26985473889 B COMPLEX-C Inactive TRUEDRAW LANCING DEVICE test blood sugar twice daily dx: 250.00 TRUEDRAW LANCING DEVICE LANCET DEVICES Inactive TRUETEST TEST IN VITRO STRIP test blood sugar twice daily. DX 250.0 TRUETEST TEST IN VITRO STRIP GLUCOSE BLOOD Inactive CYCLOBENZAPRINE HCL 10 MG ORAL TABLET 1 po TID PRN Muscle Spasm CYCLOBENZAPRINE HCL 10 MG ORAL TABLET 268086 CYCLOBENZAPRINE HCL Inactive DICLOFENAC SODIUM 50 MG ORAL TABLET DELAYED RELEASE 1 po BID PRN Pain DICLOFENAC SODIUM 50 MG ORAL TABLET DELAYED RELEASE 592117 DICLOFENAC SODIUM Inactive DICLOFENAC SODIUM 75 MG ORAL TABLET DELAYED RELEASE 1 po BID PRN Pain DICLOFENAC SODIUM 75 MG ORAL TABLET DELAYED RELEASE 356653 DICLOFENAC SODIUM Inactive NASONEX 50 MCG/ACT NASAL SUSPENSION 2 actuations in each nostril q day 07/15 NASONEX 50 MCG/ACT NASAL SUSPENSION 0461441 MOMETASONE FUROATE Inactive GUAIFENESIN ER 600 MG ORAL TABLET EXTENDED RELEASE 12 HOUR 1 twice a day as needed for congestion GUAIFENESIN ER 600 MG ORAL TABLET EXTENDED RELEASE 12 HOUR GUAIFENESIN Inactive AZITHROMYCIN 250 MG ORAL TABLET 2 po qd x 1, then 1 po qd x 4 AZITHROMYCIN 250 MG ORAL TABLET 472198 AZITHROMYCIN Inactive PROMETHAZINE-CODEINE 6.25-10 MG/5ML ORAL SYRUP 5ml po q6hr PRN Cough PROMETHAZINE-CODEINE 6.25-10 MG/5ML ORAL SYRUP 460778 PROMETHAZINE-CODEINE Inactive TRIAMCINOLONE ACETONIDE 0.1 % EXTERNAL OINTMENT Apply to affected areas TID for up to 2 weeks TRIAMCINOLONE ACETONIDE 0.1 % EXTERNAL OINTMENT 5374556 TRIAMCINOLONE ACETONIDE Inactive PREDNISONE 20 MG ORAL TABLET 2 tabs daily for 3 days, 1 tab daily for 3 days, 1/2 tab daily for 2 days PREDNISONE 20 MG ORAL TABLET 692313 PREDNISONE Inactive PREDNISONE 20 MG ORAL TABLET 2 tabs daily for 3 days, 1 tab daily for 3 days, 1/2 tab daily for 2 days PREDNISONE 20 MG ORAL TABLET 026811 PREDNISONE Inactive BACTRIM DS 800-160 MG ORAL TABLET 1 po BID x 7 days BACTRIM DS 800-160 MG ORAL TABLET 780802 SULFAMETHOXAZOLE-TRIMETHOPRIM Inactive ZITHROMAX 250 MG ORAL TABLET 2 po today, then 1 po q days 2-5 ZITHROMAX 250 MG ORAL TABLET 887136 AZITHROMYCIN Inactive PREDNISONE 20 MG ORAL TABLET 2 po qd x 5 days PREDNISONE 20 MG ORAL TABLET 770763 PREDNISONE Inactive Advance Directives Directive Description Start Date DISCUSSED WITH PATIENT -- NO DECISION MADE Immunizations Vaccine Administration Date Value Standard Description Seasonal influenza vaccine, injectable, containing preservative, for > 3 years old (Afluria, FluLaval, Fluzone, Fluvirin, Fluarix, Agriflu(>=18 yo)) Fluzone (>3 yrs.) [[id number]] Influenza, seasonal, injectable influenza immunization (Flu Vax) has been administered 02/22/2012 influenza virus vaccine, unspecified formulation Seasonal influenza vaccine, injectable, containing preservative, for > 3 years old (Afluria, FluLaval, Fluzone, Fluvirin, Fluarix, Agriflu(>=18 yo)) Fluzone (>3 yrs.) [[id number]] Influenza, seasonal, injectable Vital Signs Date Name [...] ... - Chemistry sodium, serum 141 mmol/L 974-976 3970/01/16 carbon dioxide, venous blood 28.3 mmol/L 21.0-32.0 [...] 6.7 % 4.3-6.0 cholesterol, serum 106 mg/dL 853-735 1376/01/16 triglyceride, serum, fasting 173 mg/dL 30-200 HDL [...] 4.3-6.0 Encounters Code Encounter Date Provider Facility CPT-36062 Level 3 Est. Patient 09:11:32 CDT Tu Landeros MD [facility] CPT-07801 Level 3 Est. Patient 10:13:19 PHOTO STYLIST Lesli [facility] CPT-16964 Level 4 Est. Patient 13:42:02 PHOTO STYLIST Tu Landeros MD [facility] CPT-69680 Level 3 Est. Patient 14:20:36 CDT Tu Landeros MD [facility] CPT-41896 Level 4 Est. Patient 14:28:34 CDT Tu Landeros MD [facility] CPT-24121 Level 3 Est. Patient 13:33:09 CDT Tu Landeros MD [facility] CPT-24572 Level 4 Est. Patient 14:29:21 CDT Tu Landeros MD [facility] CPT-01251 Level 4 Est. Patient 09:08:17 PHOTO STYLIST Tu Landeros MD [facility] CPT-51728 Level 4 Est. Patient 14:40:19 CDT Tu Landeros MD [facility] CPT-93211 Level 4 Est. Patient 14:06:04 PHOTO STYLIST Tu Landeros MD [facility] CPT-71733 Level 3 Est. Patient 14:05:18 PHOTO STYLIST Tu Landeros MD [facility] CPT-31534 Level 3 Est. Patient 10:06:54 PHOTO STYLIST Miranda Farah GRANT ADMINISTRATOR [facility] CPT-91089 Level 4 Est. Patient 13:50:18 PHOTO STYLIST [facility] Level 3 Est. Patient 10:30:04 CDT Tu Landeros MD [facility] CPT-33071 Level 4 Est. Patient 11:03:38 CDT Tu Landeros MD [facility] CPT-75479 Level 3 Est. Patient 10:20:44 CDT Fab Morales DO [facility] CPT-02572 Level 4 Est. Patient 14:38:57 CDT Tu Landeros MD [facility] CPT-25804 Level 4 Est. Patient 14:27:39 PHOTO STYLIST Tu Landeros MD [facility] CPT-25810 Level 4 Est. Patient 09:45:25 CDT Tu Landeros MD [facility] CPT-98632 Level 4 Est. Patient 09:05:20 PHOTO STYLIST Tu Landeros MD [facility] CPT-85617 Level 4 Est. Patient 14:09:06 CDT Tu Landeros MD [facility] CPT-04448 Level 3 Est. Patient 13:36:54 CDT Tu Landeros MD [facility] CPT-32399 Level 3 Est. Patient 08:59:14 CDT Tu Landeros MD [facility] CPT-23813 Level 3 Est. Patient 13:48:35 CDT Fab Morales DO [facility] CPT-67756 Level 4 Est. Patient 10:05:48 CDT Tu Landeros MD [facility] CPT-35062 Level 3 Est. Patient 13:38:42 CDT Marek BANKS [facility] CPT-75657 Level 5 Est. Patient 08:08:39 CDT Jerrica FRANCIS [facility] CPT-10799 Level 4 Est. Patient 14:23:38 CDT Tu Landeros MD [facility] CPT-24939 Level 3 Est. Patient 11:44:04 CDT Tu Landeros MD [facility] CPT-84406 Level 3 Est. Patient 11:03:20 PHOTO STYLIST Tu Landeros MD [facility] CPT-79941 Level 3 Est. Patient 11:03:14 PHOTO STYLIST Tu Landeros MD [facility] CPT-80620 Level 3 Est. Patient 12:42:49 CDT Tu Landeros MD [facility] CPT-76169 Level 3 Est. Patient 11:52:06 CDT Tu Landeros MD [facility] CPT-02830 Level 3 Est. Patient 13:58:11 CDT Tu Landeros MD [facility] CPT-89937 Level 3 Est. Patient 17:50:07 CDT Fab Morales DO [facility] CPT-32799 Level 3 Est. Patient 12:06:29 CDT Elvira Cervantes MD, PhD [facility] CPT-48925 Level 3 Est. Patient 15:50:32 CDT Tu Landeros MD [facility] CPT-58008 Level 4 Est. Patient 16:08:29 CDT Tu Landeros MD [facility] CPT-95741 Level 3 Est. Patient 16:04:19 CDT Tu Landeros MD [facility] CPT-66224 Level 3 Est. Patient 11:22:30 PHOTO STYLIST Tu Landeros MD [facility] CPT-98793 Level 4 Est. Patient 16:24:02 PHOTO STYLIST Tu Landeros MD [facility] CPT-21181 Level 3 Est. Patient 17:21:23 PHOTO STYLIST Tu Landeros MD [facility] Procedures Code Procedure Name Date Entry Date Standard Description CPT-24932 Shoulder, right, comp min 2V - XRAY USE ONLY 13:50:22 CDT CPT-G0009 Administration of Pneumococcal Vaccine 15:08:26 CDT CPT-12986 Prevnar 13 Intramuscular Suspension 15:08:26 CDT 10/08 CPT-G0439 Subsequent Annual Wellness Exam 14:29:22 CDT CPT-28104 Venipuncture Draw Fee 13:15:35 CDT CPT-24016 Magnesium - LAB USE ONLY 11:14:20 PHOTO STYLIST CPT-24455 Lipid - LAB USE ONLY 11:14:20 PHOTO STYLIST CPT-20846 HGBA1C - LAB USE ONLY 11:14:20 PHOTO STYLIST CPT-02440 CMP - LAB USE ONLY 11:14:19 PHOTO STYLIST CPT-14712 CBC - LAB USE ONLY 11:14:19 PHOTO STYLIST CPT-58208 Venipuncture Draw Fee 11:14:18 PHOTO STYLIST CPT-44701 First Vx - Ix admin for Medicare patients 16:46:52 CDT CPT-96022 Fluzone Preservative Free Intramuscular Suspension 16:46 :51 CDT CPT-11960 CBC - LAB USE ONLY 17:14:46 CDT CPT-31508 HGBA1C - LAB USE ONLY 17:14:46 CDT CPT-91660 Venipuncture Draw Fee 17:14:46 CDT CPT-G0438 Initial Annual Wellness Exam 14:13:04 CDT CPT-41255 Breathing Tx 10:06:54 PHOTO STYLIST CPT-47889 Postop F/U Visit 10:02:45 CDT CPT-LR Lesion Removal 09:02:56 CDT CPT-JTINJ Asp/Joint Injection 15:51:27 PHOTO STYLIST CPT-OV Office Visit 15:52:02 PHOTO STYLIST CPT-OV Office Visit 15:45:11 CDT CPT-000 Give Zostavax 14:09:06 CDT CPT-44460 Administration single or combination vaccine inc oral 15 :19:04 CDT CPT-30812 Zoster Vaccine (Zostavax) 15:19:04 CDT CPT-79561 Administration single or combination vaccine inc oral 20 :51:03 CDT CPT-19229 Influenza split virus > age 3 20:51:03 CDT CPT-45816 No Charge Offi Visit 14:52:03 CDT CPT-OV Office Visit 14:57:43 CDT CPT-OV Office Visit 15:22:32 CDT CPT-40416 Administration single or combination vaccine inc oral 11 :33:15 CDT CPT-85829 Influenza split virus > age 3 11:33:15 CDT
--- OUTSIDE RECORDS SUMMARY | 2018-04-25 14:11 | XMS REPORT | Clinical Summary ---
Author Author Admin, SACHI Organization [employer] Address Unknown Phone Unavailable Allergies, Adverse Reactions, [...] Otalgia, unspecified Hot flashes 627.2 Resolved Tu Landeors MD Symptomatic menopausal or female climacteric states [...] Landeros MD KNEE PAIN ICD-719.46 Inactive Tu Landeors MD CONTUSION OF UNSPECIFIED SITE ICD-924.9 Inactive [...] 1 po BID PRN Pain DICLOFENAC SODIUM 00942777278 Active Tu Landeros MD Active GABAPENTIN 100 MG CAPS 1 po TID GABAPENTIN 20437059373 Active Tu Landeros MD Active DICLOFENAC SODIUM 50 MG ORAL TBEC 1 po BID PRN Pain DICLOFENAC SODIUM 17796237197 No Longer Active Tu Landeros MD Active CYCLOBENZAPRINE HCL 10 MG ORAL TABS 1 po TID PRN Muscle Spasm CYCLOBENZAPRINE HCL 76397441860 No Longer Active Tu Landeros MD Active INVOKANA 100 MG ORAL TABS 1 po qd CANAGLIFLOZIN 93471767630 Active Tu Landeros MD Active GLIPIZIDE 5 MG ORAL TABS 1 po qd GLIPIZIDE 41740261359 No Longer Active Tu Landeros MD Active VENLAFAXINE HCL 75 MG ORAL TABS 1 po BID VENLAFAXINE HCL 22315582335 Active Tu Landeros MD Active GLIMEPIRIDE 1 MG ORAL TABS 1 po qd GLIMEPIRIDE 22179746193 No Longer Active Tu Landeros MD Active TRUE METRIX BLOOD GLUCOSE TEST INVITR STRP Test blood sugar BID Dx: E11.9 GLUCOSE BLOOD 28848991596 Active Tu Landeros MD Active TRUE METRIX AIR GLUCOSE METER W/DEVICE KIT Test blood glucose BID Dx: E11.9 BLOOD GLUCOSE MONITORING SUPPL 45230203811 Active Tu Landeros MD Active TRUETEST TEST INVITR STRP test blood sugar twice daily. DX 250.0 GLUCOSE BLOOD 13408933469 No Longer Active Mirna Stanley LPN Active TRUEDRAW LANCING DEVICE MISC test blood sugar twice daily dx: 250.00 LANCET DEVICES 96640020051 No Longer Active Mirna Stanley LPN Active ENALAPRIL MALEATE 20 MG TABS 2 po qd ENALAPRIL MALEATE 91164717728 Active Lesli Kellogg APRN Active SUPER B COMPLEX/VITAMIN C TABS 1 qd B COMPLEX-C 16730669833 No Longer Active Tu Landeros MD Active ASPIRIN EC 81 MG ORAL TBEC 1 po qd ASPIRIN 24770508192 Active Tu Landeros MD Active GLUCOSAMINE 500 MG TABS 2 po qd GLUCOSAMINE Active Tu Landeros MD Active SIMVASTATIN 40 MG TABS 0.5 po qHS SIMVASTATIN 73979921376 Active Tu Landeros MD Active FISH OIL 1000 MG CAPS 1 po qd OMEGA-3 FATTY ACIDS 97137674881 Active Tu Landeros MD Active METFORMIN HCL 1000 MG TABS 1 po BID METFORMIN HCL 66741859205 Active Tu Landeros MD Active KLOR-CON 10 10 MEQ CR-TABS 2 po qd POTASSIUM CHLORIDE 15123611182 Active Tu Landeros MD Active FUROSEMIDE 40 MG TAB 1 po qd FUROSEMIDE 40127468214 Active Tu Landeros MD Active REQUIP 2 MG ORAL TABS 1 po qHS PRN Restless legs ROPINIROLE HCL 21336717162 Active Tu Landeros MD Active REQUIP 2 MG TABS Take one tablet at bedtime prn ROPINIROLE HCL 01168157834 No Longer Active Tu Landeros MD Active VENTOLIN HFA 108 (90 BASE) MCG/ACT AERS 1-2 puffs every 4 hours if needed for cough/congestion ALBUTEROL SULFATE 33947657957 No Longer Active Ambika Aden APRN Active ZITHROMAX 250 MG TAB 2 po today, then 1 po q days 2-5 AZITHROMYCIN 83093466672 No Longer Active Miranda Suresh APRN Active FLONASE 50 MCG/ACT SUSP 1 spray each nostril twice daily until bottle empty FLUTICASONE PROPIONATE 98076620440 No Longer Active Tu Landeros MD Active COLACE 100 MG CAP 1 po BID PRN Constipation DOCUSATE SODIUM 62285676199 Active Tu Landeros MD Active TRUERESULT BLOOD GLUCOSE W/DEVICE KIT test blood sugar twice daily dx 250.00 BLOOD GLUCOSE MONITORING SUPPL 80147868867 No Longer Active Tu Landeros MD Active TRUEDRAW LANCING DEVICE MISC Test twice a day dx 250.0 LANCET DEVICES 45405650430 No Longer Active Tu Landeros MD Active PREDNISONE 20 MG TAB 2 tablets once daily for 2 days, then 1 tablet once daily for 2 days PREDNISONE 75028827828 No Longer Active Tu Landeros MD Active DICLOFENAC SODIUM 50 MG TBEC 1 tablet by mouth three times a day as needed DICLOFENAC SODIUM 61775145872 No Longer Active Fab Morales DO Active EMBRACE BLOOD GLUCOSE TEST STRP test blood sugar twice daily DX 250.0 2014 GLUCOSE BLOOD 06110337112 No Longer Active Tu Landeros MD Active TRUETEST TEST STRP test blood sugar three times daily dx: 250.00 GLUCOSE BLOOD 24574536187 No Longer Active Suze Nicole RMMahendra Active TRUERESULT BLOOD GLUCOSE W/DEVICE KIT use to test blood sugar tid dx: 250.00 BLOOD GLUCOSE MONITORING SUPPL 20637839457 No Longer Active Suze Corey RMA Active ALIGN 4 MG CAPS 1 tid PROBIOTIC PRODUCT 47257138851 No Longer Active Shaun Sy MD Active CIPRO 500 MG TABS 1 bid x 14 days start 09-28-13 CIPROFLOXACIN HCL 87438582435 No Longer Active Shaun Sy MD Active TRAMADOL HCL 50 MG TABS 1-2 tablets every 6 hours as needed for pain TRAMADOL HCL 99795153028 Active Tu Landeros MD Active HYDROCODONE-ACETAMINOPHEN 5-325 MG TABS 1 tab by mouth every 6 hours as needed for pain HYDROCODONE-ACETAMINOPHEN 44982444810 No Longer Active Tu Landeros MD Active OMEPRAZOLE 20 MG CPDR 1 po q a.m. OMEPRAZOLE 84126659626 Active Fab Morales DO Active GABAPENTIN 100 MG CAPS 1 po bid GABAPENTIN 83233323180 No Longer Active Tu Landeros MD Active B-12 100 MCG TABS Take one by mouth daily CYANOCOBALAMIN 00538142234 No Longer Active Tu Landeros MD Active BACTRIM DS 800-160 MG TABS 1 bid x 14 day start 09-28-13 SULFAMETHOXAZOLE-TRIMETHOPRIM 77913298484 No Longer Active Tu Landeros MD Active CARVEDILOL 12.5 MG TABS 1 po BID CARVEDILOL 52332225680 Active Lesli Kellogg APRN Active TRILIPIX 135 MG CPDR 1 q hs CHOLINE FENOFIBRATE 91839490033 Active Tu Landeros MD Active FENOFIBRATE 145 MG TABS 1 po qd FENOFIBRATE 14504453147 No Longer Active JASPREET Perez Active OMEPRAZOLE 20 MG TBEC 1 PO 30 MIN BEFORE 1ST MEAL OMEPRAZOLE 03811098385 No Longer Active JASPREET Perez Active SIMVASTATIN 40 MG TABS Take one by mouth daily SIMVASTATIN 05388190968 No Longer Active JASPREET Perez Active VENLAFAXINE HCL 75 MG TABS 1 po BID VENLAFAXINE HCL 07865826952 No Longer Active JASPREET Perez Active CIPRO 500 MG TAB 1 tablet by mouth twice daily CIPROFLOXACIN HCL 18735061879 No Longer Active Tu Landeros MD Active VENLAFAXINE HCL 37.5 MG TABS 1 po BID VENLAFAXINE HCL 93873726841 No Longer Active Suzebianca Nicole RMA Active LAMISIL 250 MG TAB 1 po qd TERBINAFINE HCL 64454653223 No Longer Active Tu Landeros MD Active LORTAB 5 5-500 MG TABS 1/2 to 1 tablet by mouth every 4 hours as needed for pain HYDROCODONE-ACETAMINOPHEN 09460353672 No Longer Active Tu Landeros MD Active HYDROCODONE-ACETAMINOPHEN 5-500 MG TABS take one po Q 4-6 hours prn HYDROCODONE-ACETAMINOPHEN 02734470882 No Longer Active Tu Landeros MD Active BACTRIM DS 800-160 MG TABS 1 po BID x 7 days SULFAMETHOXAZOLE-TRIMETHOPRIM 52824721725 No Longer Active Tu Landeros MD Active VENLAFAXINE HCL 75 MG TABS 1 po BID VENLAFAXINE HCL 03354381946 No Longer Active Elvira Cervantes MD PhD Active TRAMADOL HCL 50 MG TABS 1 tablets every 6 hours as needed for pain TRAMADOL HCL 16290981379 No Longer Active Tu Landeros MD Active ACCU-CHEK FASTCLIX LANCETS MISC Use to check bloodsugar three times daily as needed LANCETS 77544915517 No Longer Active Tu Landeros MD Active ACCU-CHEK KEYONA PLUS STRP Use for testing bloodsugars three times daily as needed GLUCOSE BLOOD 53118302485 No Longer Active Tu Landeros MD Active ACCU-CHEK KEYONA PLUS W/DEVICE KIT Use for testing bloodsugars three times daily as needed BLOOD GLUCOSE MONITORING SUPPL 87391546183 No Longer Active Tu Landeros MD Active SPIRONOLACTONE 25 MG TAB 0.5 tablet by mouth daily SPIRONOLACTONE 47506671327 No Longer Active Tu Landeros MD Active ALPRAZOLAM 0.5 MG TABS 1 tab every 6hrs as needed ALPRAZOLAM 94138652012 No Longer Active Tu Landeros MD Active AUGMENTIN 875-125 MG TAB 1 tab by mouth twice daily with food AMOXICILLIN-POT CLAVULANATE 35947175215 No Longer Active Tu Landeros MD Active PREDNISONE 20 MG TAB 2 tabs daily for 3 days, 1 tab daily for 3 days, 1/2 tab daily for 2 days PREDNISONE 93178440281 No Longer Active Tu Landeros MD Active XANAX 0.5 MG TABS 1 tablet every 6 hrs prn ALPRAZOLAM 06635552045 No Longer Active Tu Landeros MD Active PREDNISONE 20 MG TAB 2 tabs daily for 3 days, 1 tab daily for 3 days, 1/2 tab daily for 2 days PREDNISONE 88413662694 No Longer Active Tu Landeros MD Active TRIAMCINOLONE ACETONIDE 0.1 % OINT Apply to affected areas TID for up to 2 weeks TRIAMCINOLONE ACETONIDE 59308154840 No Longer Active Tu Landeros MD Active LORTAB 5 5-500 MG TABS 1/2 to 1 tablet by mouth every 4 hours as needed for pain HYDROCODONE-ACETAMINOPHEN 60522855143 No Longer Active Tu Landeros MD Active MULTIVITAMINS TABS Take one by mouth daily MULTIPLE VITAMIN 62339276455 No Longer Active Tu Landeros MD Active MELATONIN 5 MG TABS Take one by mouth daily MELATONIN 43519914693 No Longer Active Tu Landeros MD Active SOMA 350 MG TAB 1 po q 6 hours prn spasm CARISOPRODOL 75163443568 No Longer Active Tu Landeros MD Active MECLIZINE HCL 25 MG CHEW TAB 1 four times a day as needed for dizziness 08/05 MECLIZINE HCL 82845827982 No Longer Active Fab Morales DO Active ANGEL BREEZE 2 TEST DISK test tid prn GLUCOSE BLOOD 23836965848 No Longer Active Negra Scott RN Active REGLAN 10 MG TAB 1 po TID PRN Nausea METOCLOPRAMIDE HCL 85787250996 No Longer Active Tu Landeros MD Active METFORMIN HCL 500 MG TABS 1 PO BID METFORMIN HCL 03855268388 No Longer Active Tu Landeros MD Active AMBIEN 10 MG TAB 1 tab by mouth at bedtime as needed for sleep ZOLPIDEM TARTRATE 84066986554 No Longer Active Tu Landeros MD Active FLUOXETINE HCL 40 MG CAPS 1 po q day FLUOXETINE HCL 14944984434 No Longer Active Mayra Terry Active TRILIPIX 135 MG CPDR 1 po qd CHOLINE FENOFIBRATE 87428979461 No Longer Active Tu Landeros MD Active AMBIEN 10 MG TAB 1 tab by mouth at bedtime as needed for sleep AMBIEN 10 MG TAB 213158 ZOLPIDEM TARTRATE Inactive METFORMIN HCL 500 MG TABS 1 PO BID METFORMIN HCL 500 MG TABS 943917 METFORMIN HCL Inactive REGLAN 10 MG TAB 1 po TID PRN Nausea REGLAN 10 MG TAB 993203 METOCLOPRAMIDE HCL Inactive MECLIZINE HCL 25 MG CHEW TAB 1 four times a day as needed for dizziness 08/05 MECLIZINE HCL 25 MG CHEW TAB 955702 MECLIZINE HCL Inactive SOMA 350 MG TAB 1 po q 6 hours prn spasm SOMA 350 MG TAB 305880 CARISOPRODOL Inactive MELATONIN 5 MG TABS Take one by mouth daily MELATONIN 5 MG TABS 456928 MELATONIN Inactive MULTIVITAMINS TABS Take one by mouth daily MULTIVITAMINS TABS MULTIPLE VITAMIN Inactive LORTAB 5 5-500 MG TABS 1/2 to 1 tablet by mouth every 4 hours as needed for pain LORTAB 5 5-500 MG TABS 583638 HYDROCODONE- ACETAMINOPHEN Inactive XANAX 0.5 MG TABS 1 tablet every 6 hrs prn XANAX 0.5 MG TABS 164634 ALPRAZOLAM Inactive AUGMENTIN 875-125 MG TAB 1 tab by mouth twice daily with food AUGMENTIN 875-125 MG TAB 774290 AMOXICILLIN-POT CLAVULANATE Inactive ALPRAZOLAM 0.5 MG TABS 1 tab every 6hrs as needed ALPRAZOLAM 0.5 MG TABS 181509 ALPRAZOLAM Inactive SPIRONOLACTONE 25 MG TAB 0.5 tablet by mouth daily SPIRONOLACTONE 25 MG TAB 523518 SPIRONOLACTONE Inactive ACCU-CHEK KEYONA PLUS W/DEVICE KIT Use for testing bloodsugars three times daily as needed ACCU-CHEK KEYONA PLUS W/DEVICE KIT BLOOD GLUCOSE MONITORING SUPPL Inactive ACCU-CHEK KEYONA PLUS STRP Use for testing bloodsugars three times daily as needed ACCU-CHEK KEYONA PLUS STRP GLUCOSE BLOOD Inactive ACCU-CHEK FASTCLIX LANCETS MISC Use to check bloodsugar three times daily as needed ACCU-CHEK FASTCLIX LANCETS MISC 15823386966 LANCETS Inactive TRAMADOL HCL 50 MG TABS 1 tablets every 6 hours as needed for pain TRAMADOL HCL 50 MG TABS 524330 TRAMADOL HCL Inactive VENLAFAXINE HCL 75 MG TABS 1 po BID VENLAFAXINE HCL 75 MG TABS 783153 VENLAFAXINE HCL Inactive HYDROCODONE-ACETAMINOPHEN 5-500 MG TABS take one po Q 4-6 hours prn HYDROCODONE-ACETAMINOPHEN 5-500 MG TABS 575191 HYDROCODONE- ACETAMINOPHEN Inactive LORTAB 5 5-500 MG TABS 1/2 to 1 tablet by mouth every 4 hours as needed for pain LORTAB 5 5-500 MG TABS 555808 HYDROCODONE- ACETAMINOPHEN Inactive LAMISIL 250 MG TAB 1 po qd LAMISIL 250 MG TAB 050110 TERBINAFINE HCL Inactive VENLAFAXINE HCL 37.5 MG TABS 1 po BID VENLAFAXINE HCL 37.5 MG TABS 925526 VENLAFAXINE HCL Inactive CIPRO 500 MG TAB 1 tablet by mouth twice daily CIPRO 500 MG TAB 235006 CIPROFLOXACIN HCL Inactive VENLAFAXINE HCL 75 MG TABS 1 po BID VENLAFAXINE HCL 75 MG TABS 739729 VENLAFAXINE HCL Inactive SIMVASTATIN 40 MG TABS Take one by mouth daily SIMVASTATIN 40 MG TABS 930353 SIMVASTATIN Inactive OMEPRAZOLE 20 MG TBEC 1 PO 30 MIN BEFORE 1ST MEAL OMEPRAZOLE 20 MG TBEC 185028 OMEPRAZOLE Inactive FENOFIBRATE 145 MG TABS 1 po qd FENOFIBRATE 145 MG TABS 009687 FENOFIBRATE Inactive BACTRIM DS 800-160 MG TABS 1 bid x 14 day start 09-28-13 BACTRIM DS 800-160 MG TABS 656508 SULFAMETHOXAZOLE-TRIMETHOPRIM Inactive B-12 100 MCG TABS Take one by mouth daily B-12 100 MCG TABS CYANOCOBALAMIN Inactive GABAPENTIN 100 MG CAPS 1 po bid GABAPENTIN 100 MG CAPS 769983 GABAPENTIN Inactive HYDROCODONE-ACETAMINOPHEN 5-325 MG TABS 1 tab by mouth every 6 hours as needed for pain HYDROCODONE-ACETAMINOPHEN 5-325 MG TABS 102976 HYDROCODONE-ACETAMINOPHEN Inactive CIPRO 500 MG TABS 1 bid x 14 days start 09-28-13 CIPRO 500 MG TABS 111268 CIPROFLOXACIN HCL Inactive ALIGN 4 MG CAPS [...] as needed DICLOFENAC SODIUM 50 MG TBEC 602577 DICLOFENAC SODIUM Inactive PREDNISONE 20 MG TAB 2 tablets once daily for 2 days, then 1 tablet once daily for 2 days PREDNISONE 20 MG TAB 301014 PREDNISONE Inactive TRUEDRAW LANCING DEVICE MISC Test twice a day dx 250.0 TRUEDRAW LANCING DEVICE MISC LANCET DEVICES Inactive TRUERESULT BLOOD GLUCOSE W/DEVICE KIT test blood sugar twice daily dx 250.00 TRUERESULT BLOOD GLUCOSE W/DEVICE KIT BLOOD GLUCOSE MONITORING SUPPL Inactive FLONASE 50 MCG/ACT SUSP 1 spray each nostril twice daily until bottle empty FLONASE 50 MCG/ACT SUSP 1114432 FLUTICASONE PROPIONATE Inactive VENTOLIN HFA 108 (90 BASE) MCG/ACT AERS 1-2 puffs every 4 hours if needed for cough/congestion VENTOLIN HFA 108 (90 BASE) MCG/ACT AERS ALBUTEROL SULFATE Inactive REQUIP 2 MG TABS Take one tablet at bedtime prn REQUIP 2 MG TABS 212468 ROPINIROLE HCL Inactive SUPER B COMPLEX/VITAMIN C TABS 1 qd SUPER B COMPLEX/ VITAMIN C TABS 10777035855 B COMPLEX-C Inactive TRUEDRAW LANCING DEVICE MISC test blood sugar twice daily dx: 250.00 TRUEDRAW LANCING DEVICE MISC LANCET DEVICES Inactive TRUETEST TEST INVITR STRP test blood sugar twice daily. DX 250.0 TRUETEST TEST INVITR STRP GLUCOSE BLOOD Inactive CYCLOBENZAPRINE HCL 10 MG ORAL TABS 1 po TID PRN Muscle Spasm CYCLOBENZAPRINE HCL 10 MG ORAL TABS 044151 CYCLOBENZAPRINE HCL Inactive DICLOFENAC SODIUM 50 MG ORAL TBEC 1 po BID PRN Pain DICLOFENAC SODIUM 50 MG ORAL TBEC 164598 DICLOFENAC SODIUM Inactive TRIAMCINOLONE ACETONIDE 0.1 % OINT Apply to affected areas TID for up to 2 weeks TRIAMCINOLONE ACETONIDE 0.1 % OINT 0903302 TRIAMCINOLONE ACETONIDE Inactive PREDNISONE 20 MG TAB 2 tabs daily for 3 days, 1 tab daily for 3 days, 1/2 tab daily for 2 days PREDNISONE 20 MG TAB 909466 PREDNISONE Inactive PREDNISONE 20 MG TAB 2 tabs daily for 3 days, 1 tab daily for 3 days, 1/2 tab daily for 2 days PREDNISONE 20 MG TAB 762749 PREDNISONE Inactive BACTRIM DS 800-160 MG TABS 1 po BID x 7 days BACTRIM DS 800-160 MG TABS 895903 SULFAMETHOXAZOLE-TRIMETHOPRIM Inactive ZITHROMAX 250 MG TAB 2 po today, then 1 po q days 2-5 ZITHROMAX 250 MG TAB 585076 AZITHROMYCIN Inactive Advance Directives Directive Description Start Date DISCUSSED WITH PATIENT -- NO DECISION MADE Immunizations Vaccine Administration Date Value Standard Description Seasonal influenza vaccine, injectable, containing preservative, for > 3 years old (Afluria, FluLaval, Fluzone, Fluvirin, Fluarix, Agriflu(>=18 yo)) Fluzone (>3 yrs.) [[id number]] Influenza, seasonal, injectable influenza immunization (Flu Vax) has been administered 02/22/2012 influenza virus vaccine, unspecified formulation Seasonal influenza vaccine, injectable, containing preservative, for > 3 years old (Afluria, FluLaval, Fluzone, Fluvirin, Fluarix, Agriflu(>=18 yo)) Fluzone (>3 yrs.) [[id number]] Influenza, seasonal, injectable Vital Signs Date Name [...] Magnesium - Chemistry sodium, serum 143 mmol/L 130-887 8948/01/10 carbon dioxide, venous blood 28.0 mmol/L 21.0-32.0 potassium, serum 4.5 mmol/L 3.5-5.2 chloride, serum 104 mmol/L 98-107 blood glucose 158 mg/dL 65-110 urea nitrogen, blood 23 mg/dL 7-18 creatinine, serum 1.06 mg/dL 0.55-1.30 alanine aminotransferase (SGPT), serum 42 U/L 12-78 aspartate aminotransferase (SGOT), serum 32 U/L 15-37 calcium, serum 9.3 mg/dL 8.5-10.1 bilirubin, serum, total 0.20 mg/dL 0.00-1.00 cholesterol, serum 177 mg/dL 937-536 5820/01/10 triglyceride, serum, fasting 320 mg/dL 30-200 HDL cholesterol, serum 46 mg/dL 32-96 LDL cholesterol, serum 67 mg/dL 0-130 Lab Report: COMPREHENSIVE METABOLIC PANEL, LIPID PANEL, HEMOGLOBIN A1c - Chemistry cholesterol, serum 135 mg/dL [phone]/05/17 HDL cholesterol, serum 41 mg/dL > OR=46 [...] <30 Encounters Code Encounter Date Provider Facility CPT-37909 Level 3 Est. Patient 14:20:36 CDT Tu Landeros MD [facility] CPT-37132 Level 4 Est. Patient 14:28:34 CDT Tu Landeros MD [facility] CPT-26551 Level 3 Est. Patient 13:33:09 CDT Tu Landeros MD [facility] CPT-12287 Level 4 Est. Patient 14:29:21 CDT Tu Landeros MD [facility] CPT-56347 Level 4 Est. Patient 09:08:17 FIELD ADJUSTER Tu Landeros MD [facility] CPT-98103 Level 4 Est. Patient 14:40:19 CDT Tu Landeros MD [facility] CPT-26654 Level 4 Est. Patient 14:06:04 FIELD ADJUSTER Tu Landeros MD [facility] CPT-59987 Level 3 Est. Patient 14:05:18 FIELD ADJUSTER Tu Landeros MD [facility] CPT-99873 Level 3 Est. Patient 10:06:54 FIELD ADJUSTER Miranda Suresh APRN [facility] CPT-98739 Level 4 Est. Patient 13:50:18 FIELD ADJUSTER Tu Landeros MD [facility] CPT-36217 Level 3 Est. Patient 10:30:04 CDT Tu Landeros MD [facility] CPT-59204 Level 4 Est. Patient 11:03:38 CDT Tu Landeros MD [facility] CPT-60286 Level 3 Est. Patient 10:20:44 CDT Fab Morales DO [facility] CPT-02859 Level 4 Est. Patient 14:38:57 CDT Tu Landeros MD [facility] CPT-63134 Level 4 Est. Patient 14:27:39 FIELD ADJUSTER Tu Landeros MD [facility] CPT-31893 Level 4 Est. Patient 09:45:25 CDT Tu Landeros MD [facility] CPT-28447 Level 4 Est. Patient 09:05:20 FIELD ADJUSTER Tu Landeros MD [facility] CPT-39580 Level 4 Est. Patient 14:09:06 CDT Tu Landeros MD [facility] CPT-31502 Level 3 Est. Patient 13:36:54 CDT Tu Landeros MD [facility] CPT-96284 Level 3 Est. Patient 08:59:14 CDT Tu Landeros MD [facility] CPT-06662 Level 3 Est. Patient 13:48:35 CDT Fab Morales DO [facility] CPT-19842 Level 4 Est. Patient 10:05:48 CDT Tu Landeros MD [facility] CPT-93788 Level 3 Est. Patient 13:38:42 CDT Marek BANKS [facility] CPT-75119 Level 5 Est. Patient 08:08:39 CDT Jerrica FRANCIS [facility] CPT-45023 Level 4 Est. Patient 14:23:38 CDT Tu Landeros MD [facility] CPT-40051 Level 3 Est. Patient 11:44:04 CDT Tu Landeros MD [facility] CPT-06006 Level 3 Est. Patient 11:03:20 FIELD ADJUSTER Tu Landeros MD [facility] CPT-15415 Level 3 Est. Patient 11:03:14 FIELD ADJUSTER Tu Landeros MD [facility] CPT-49209 Level 3 Est. Patient 12:42:49 CDT Tu Landeros MD [facility] CPT-28990 Level 3 Est. Patient 11:52:06 CDT Tu Landeros MD [facility] CPT-65472 Level 3 Est. Patient 13:58:11 CDT Tu Landeros MD [facility] CPT-38053 Level 3 Est. Patient 17:50:07 CDT Fab Morales DO [facility] CPT-62630 Level 3 Est. Patient 12:06:29 CDT Elvira Cervantes MD, PhD [facility] CPT-53371 Level 3 Est. Patient 15:50:32 CDT Tu Landeros MD [facility] CPT-81603 Level 4 Est. Patient 16:08:29 CDT Tu Landeros MD [facility] CPT-19550 Level 3 Est. Patient 16:04:19 CDT Tu Landeros MD [facility] CPT-75064 Level 3 Est. Patient 11:22:30 FIELD ADJUSTER Tu Landeros MD [facility] CPT-93308 Level 4 Est. Patient 16:24:02 FIELD ADJUSTER Tu Landeros MD [facility] CPT-06984 Level 3 Est. Patient 17:21:23 FIELD ADJUSTER Tu Landeros MD [facility] Procedures Code Procedure Name Date Entry Date Standard Description CPT-89327 Shoulder, right, comp min 2V - XRAY USE ONLY 13:50:22 CDT CPT-G0009 Administration of Pneumococcal Vaccine 15:08:26 CDT CPT-08885 Prevnar 13 Intramuscular Suspension 15:08:26 CDT 10/08 CPT-G0439 [facility] Annual Wellness Exam 14:29:22 CDT CPT-44007 Venipuncture Draw Fee 13:15:35 CDT CPT-04501 Magnesium - LAB USE ONLY 11:14:20 FIELD ADJUSTER CPT-91374 Lipid - LAB USE ONLY 11:14:20 FIELD ADJUSTER CPT-47644 HGBA1C - LAB USE ONLY 11:14:20 FIELD ADJUSTER CPT-88514 CMP - LAB USE ONLY 11:14:19 FIELD ADJUSTER CPT-38049 CBC - LAB USE ONLY 11:14:19 FIELD ADJUSTER CPT-90137 Venipuncture Draw Fee 11:14:18 FIELD ADJUSTER CPT-21239 First Vx - Ix admin for Medicare patients 16:46:52 CDT CPT-59900 Fluzone Preservative Free Intramuscular Suspension 16:46 :51 CDT CPT-57504 CBC - LAB USE ONLY 17:14:46 CDT CPT-76550 HGBA1C - LAB USE ONLY 17:14:46 CDT CPT-59023 Venipuncture Draw Fee 17:14:46 CDT CPT-G0438 Initial Annual Wellness Exam 14:13:04 CDT CPT-67121 Breathing Tx 10:06:54 FIELD ADJUSTER CPT-38434 Postop F/U Visit 10:02:45 CDT CPT-LR Lesion Removal 09:02:56 CDT CPT-JTINJ Asp/Joint Injection 15:51:27 FIELD ADJUSTER CPT-OV Office Visit 15:52:02 FIELD ADJUSTER CPT-OV Office Visit 15:45:11 CDT CPT-000 Give Zostavax 14:09:06 CDT CPT-79972 Administration single or combination vaccine inc oral 15 :19:04 CDT CPT-78915 Zoster Vaccine (Zostavax) 15:19:04 CDT CPT-47656 Administration single or combination vaccine inc oral 20 :51:03 CDT CPT-47188 Influenza split virus > age 3 20:51:03 CDT CPT-28073 No Charge Offi Visit 14:52:03 CDT CPT-OV Office Visit 14:57:43 CDT CPT-OV Office Visit 15:22:32 CDT CPT-37893 Administration single or combination vaccine inc oral 11 :33:15 CDT CPT-45027 Influenza split virus > age 3 11:33:15 CDT
--- OUTSIDE RECORDS SUMMARY | 2018-04-25 14:12 | XMS REPORT | Clinical Summary ---
Author Author Admin, SACHI Clemons [facility] Address Unknown Phone Unavailable Allergies, Adverse Reactions, [...] ERUPTION ICD-782.1 Tessa Landeros MD FATIGUE ICD-780.79 Tessa Landeros [...] twice daily until bottle empty FLUTICASONE PROPIONATE 95569281032 No Longer Active Tu Landeros MD Active COLACE 100 MG CAP 1 po BID PRN Constipation DOCUSATE SODIUM 11967823357 Active Tu Landeros MD Active SIMVASTATIN 40 MG TABS 0.5 tab daily at bedtime SIMVASTATIN 21964138001 Active Tu Landeros MD Active TRUERESULT BLOOD GLUCOSE W/DEVICE KIT test blood sugar twice daily dx 250.00 BLOOD GLUCOSE MONITORING SUPPL 24456657189 No Longer Active Tu Landeros MD Active TRUEDRAW LANCING DEVICE MISC Test twice a day dx 250.0 LANCET DEVICES 54912914106 No Longer Active Tu Landeros MD Active PREDNISONE 20 MG TAB 2 tablets once daily for 2 days, then 1 tablet once daily for 2 days PREDNISONE 05189428690 No Longer Active Tu Landeros MD Active DICLOFENAC SODIUM 50 MG TBEC 1 tablet by mouth three times a day as needed DICLOFENAC SODIUM 13343011927 No Longer Active Fab Morales DO Active METFORMIN HCL 850 MG TABS 1 tablet by mouth twice daily METFORMIN HCL 21878405757 Active Tu Landeros MD Active TRUEDRAW LANCING DEVICE MISC test blood sugar twice daily dx: 250.00 LANCET DEVICES 09431591170 Active Tu Landeros MD Active TRUETEST TEST INVITR STRP test blood sugar twice daily. DX 250.0 GLUCOSE BLOOD 77803282157 Active Tu Landeros MD Active EMBRACE BLOOD GLUCOSE TEST STRP test blood sugar twice daily DX 250.0 2014 GLUCOSE BLOOD 46877785338 No Longer Active Tu Landeros MD Active TRUETEST TEST STRP test blood sugar three times daily dx: 250.00 GLUCOSE BLOOD 36284387797 No Longer Active Suze VOGEL Active TRUERESULT BLOOD GLUCOSE W/DEVICE KIT use to test blood sugar tid dx: 250.00 BLOOD GLUCOSE MONITORING SUPPL 54913614494 No Longer Active Suze Nicole RMA Active ALIGN 4 MG CAPS 1 tid PROBIOTIC PRODUCT 26401547535 No Longer Active Shaun Sy MD Active CIPRO 500 MG TABS 1 bid x 14 days start 09-28-13 CIPROFLOXACIN HCL 19434630141 No Longer Active Shaun Sy MD Active TRAMADOL HCL 50 MG TABS 1-2 tablets every 6 hours as needed for pain TRAMADOL HCL 90469256911 Active Tu Landeros MD Active HYDROCODONE-ACETAMINOPHEN 5-325 MG TABS 1 tab by mouth every 6 hours as needed for pain HYDROCODONE-ACETAMINOPHEN 28908122907 No Longer Active Tu Landeros MD Active OMEPRAZOLE 20 MG CPDR 1 po q a.m. OMEPRAZOLE 35506417767 Active Tu Landeros MD Active GABAPENTIN 100 MG CAPS 1 po bid GABAPENTIN 16421677478 No Longer Active Tu Landeros MD Active B-12 100 MCG TABS Take one by mouth daily CYANOCOBALAMIN 40351663451 No Longer Active Tu Landeros MD Active GABAPENTIN 100 MG CAPS by mouth twice a day GABAPENTIN 31269031232 Active Tu Landeros MD Active BACTRIM DS 800-160 MG TABS 1 bid x 14 day start 09-28-13 SULFAMETHOXAZOLE-TRIMETHOPRIM 35858361543 No Longer Active Tu Landeros MD Active CARVEDILOL 12.5 MG TABS 1 po BID CARVEDILOL 80833188350 Active Tu Landeros MD Active SUPER B COMPLEX/VITAMIN C TABS 1 qd B COMPLEX-C 74457743881 Active JASPREET Perez Active TRILIPIX 135 MG CPDR 1 q hs CHOLINE FENOFIBRATE 39068301588 Active Tu Landeros MD Active FENOFIBRATE 145 MG TABS 1 po qd FENOFIBRATE 47118409410 No Longer Active JASPREET Perez Active OMEPRAZOLE 20 MG TBEC 1 PO 30 MIN BEFORE 1ST MEAL OMEPRAZOLE 72560726797 No Longer Active JASPREET Perez Active SIMVASTATIN 40 MG TABS Take one by mouth daily SIMVASTATIN 67829319683 No Longer Active [place] JASPREET Green Active VENLAFAXINE HCL 37.5 MG TABS 1 bid VENLAFAXINE HCL 44721578668 Active Tu Landeros MD Active VENLAFAXINE HCL 75 MG TABS 1 po BID VENLAFAXINE HCL 62630518844 No Longer Active JASPREET Perez Active CIPRO 500 MG TAB 1 tablet by mouth twice daily CIPROFLOXACIN HCL 66741704004 No Longer Active Tu Landeros MD Active VENLAFAXINE HCL 37.5 MG TABS 1 po BID VENLAFAXINE HCL 18974196330 No Longer Active Suzebianca Nicole [facility] Active LAMISIL 250 MG TAB 1 po qd TERBINAFINE HCL 42445089922 No Longer Active Tu Landeros MD Active LORTAB 5 5-500 MG TABS 1/2 to 1 tablet by mouth every 4 hours as needed for pain HYDROCODONE-ACETAMINOPHEN 29122728382 No Longer Active Tu Landeros MD Active ENALAPRIL MALEATE 20 MG TABS 1.5 po qd ENALAPRIL MALEATE 31135548334 Active Tu Landeros MD Active HYDROCODONE-ACETAMINOPHEN 5-500 MG TABS take one po Q 4-6 hours prn HYDROCODONE-ACETAMINOPHEN 16603748406 No Longer Active Tu Landeros MD Active BACTRIM DS 800-160 MG TABS 1 po BID x 7 days SULFAMETHOXAZOLE-TRIMETHOPRIM 60017774514 No Longer Active Tu Landeros MD Active VENLAFAXINE HCL 75 MG TABS 1 po BID VENLAFAXINE HCL 51797165506 No Longer Active Elvira Cervantes MD PhD Active TRAMADOL HCL 50 MG TABS 1 tablets every 6 hours as needed for pain TRAMADOL HCL 46236421398 No Longer Active Tu Landeros MD Active ACCU-CHEK FASTCLIX LANCETS MISC Use to check bloodsugar three times daily as needed LANCETS 79389689797 No Longer Active Tu Landeros MD Active ACCU-CHEK KEYONA PLUS STRP Use for testing bloodsugars three times daily as needed GLUCOSE BLOOD 91539001642 No Longer Active Tu Landeros MD Active ACCU-CHEK KEYONA PLUS W/DEVICE KIT Use for testing bloodsugars three times daily as needed BLOOD GLUCOSE MONITORING SUPPL 40029464983 No Longer Active Tu Landeros MD Active SPIRONOLACTONE 25 MG TAB 0.5 tablet by mouth daily SPIRONOLACTONE 33770415733 No Longer Active Tu Landeros MD Active ALPRAZOLAM 0.5 MG TABS 1 tab every 6hrs as needed ALPRAZOLAM 80518460488 No Longer Active Tu Landeros MD Active AUGMENTIN 875-125 MG TAB 1 tab by mouth twice daily with food AMOXICILLIN-POT CLAVULANATE 22893871523 No Longer Active Tu Landeros MD Active PREDNISONE 20 MG TAB 2 tabs daily for 3 days, 1 tab daily for 3 days, 1/2 tab daily for 2 days PREDNISONE 92662024206 No Longer Active Tu Landeros MD Active XANAX 0.5 MG TABS 1 tablet every 6 hrs prn ALPRAZOLAM 83313018450 No Longer Active Tu Landeros MD Active PREDNISONE 20 MG TAB 2 tabs daily for 3 days, 1 tab daily for 3 days, 1/2 tab daily for 2 days PREDNISONE 54893260007 No Longer Active Tu Landeros MD Active TRIAMCINOLONE ACETONIDE 0.1 % OINT Apply to affected areas TID for up to 2 weeks TRIAMCINOLONE ACETONIDE 90809996753 No Longer Active Tu Landeros MD Active LORTAB 5 5-500 MG TABS 1/2 to 1 tablet by mouth every 4 hours as needed for pain HYDROCODONE-ACETAMINOPHEN 93924351619 No Longer Active Tu Landeros MD Active MULTIVITAMINS TABS Take one by mouth daily MULTIPLE VITAMIN 39824323346 No Longer Active Tu Landeros MD Active MELATONIN 5 MG TABS Take one by mouth daily MELATONIN 75916282222 No Longer Active Tu Landeros MD Active SOMA 350 MG TAB 1 po q 6 hours prn spasm CARISOPRODOL 22987360837 No Longer Active Tu Landeros MD Active MECLIZINE HCL 25 MG CHEW TAB 1 four times a day as needed for dizziness 08/05 MECLIZINE HCL 78721421947 No Longer Active Fab Morales DO Active ANGEL BREEZE 2 TEST DISK test tid prn GLUCOSE BLOOD 87424840951 No Longer Active Negra Scott RN Active REGLAN 10 MG TAB 1 po TID PRN [place] METOCLOPRAMIDE HCL 67472824671 No Longer Active Tu Landeros MD Active METFORMIN HCL 500 MG TABS 1 PO BID METFORMIN HCL 65322421971 No Longer Active Tu Landeros MD Active AMBIEN 10 MG TAB 1 tab by mouth at bedtime as needed for sleep ZOLPIDEM TARTRATE 72282018086 No Longer Active Tu Landeros MD Active FLUOXETINE HCL 40 MG CAPS 1 po q day FLUOXETINE HCL 30380394933 No Longer Active Mayra [place] Active FISH OIL 1000 MG CAPS Take one by mouth daily OMEGA-3 FATTY ACIDS 35252248186 Active Tu Landeros MD Active GLUCOSAMINE 500 MG TABS Take 2 tab po qd GLUCOSAMINE 97353282561 Active Tu Landeros MD Active TRILIPIX 135 MG CPDR 1 po qd CHOLINE FENOFIBRATE 50225687970 No Longer Active Tu Landeros MD Active ASPIRIN 81 MG CHEW TAB 1 tablet by mouth daily ASPIRIN 21927321280 Active Tu Landeros MD Active FUROSEMIDE 40 MG TAB 1 tablet by mouth daily FUROSEMIDE 67586903888 Active Tu Landeros MD Active REQUIP 2 MG TABS Take one tablet at bedtime prn ROPINIROLE HCL 99300191744 Active Tu Landeros MD Active KLOR-CON 10 10 MEQ CR-TABS TAKE 2 TABS DAILY POTASSIUM CHLORIDE 57344113764 Active Tu Landeros MD Active AMBIEN 10 MG TAB 1 tab by mouth at bedtime as needed for sleep AMBIEN 10 MG TAB 853293 ZOLPIDEM TARTRATE Inactive METFORMIN HCL 500 MG TABS 1 PO BID METFORMIN HCL 500 MG TABS 240678 METFORMIN HCL Inactive REGLAN 10 MG TAB 1 po TID PRN Nausea REGLAN 10 MG TAB 454990 METOCLOPRAMIDE HCL Inactive MECLIZINE HCL 25 MG CHEW TAB 1 four times a day as needed for dizziness 08/05 MECLIZINE HCL 25 MG CHEW TAB 359214 MECLIZINE HCL Inactive SOMA 350 MG TAB 1 po q 6 hours prn spasm SOMA 350 MG TAB 559813 CARISOPRODOL Inactive MELATONIN 5 MG TABS Take one by mouth daily MELATONIN 5 MG TABS 011398 MELATONIN Inactive MULTIVITAMINS TABS Take one by mouth daily MULTIVITAMINS TABS MULTIPLE VITAMIN Inactive LORTAB 5 5-500 MG TABS 1/2 to 1 tablet by mouth every 4 hours as needed for pain LORTAB 5 5-500 MG TABS HYDROCODONE- ACETAMINOPHEN Inactive XANAX 0.5 MG TABS 1 tablet every 6 hrs prn XANAX 0.5 MG TABS 133787 ALPRAZOLAM Inactive AUGMENTIN 875-125 MG TAB 1 tab by mouth twice daily with food AUGMENTIN 875-125 MG TAB 537235 AMOXICILLIN-POT CLAVULANATE Inactive ALPRAZOLAM 0.5 MG TABS 1 tab every 6hrs as needed ALPRAZOLAM 0.5 MG TABS 316413 ALPRAZOLAM Inactive SPIRONOLACTONE 25 MG TAB 0.5 tablet by mouth daily SPIRONOLACTONE 25 MG TAB 249469 SPIRONOLACTONE Inactive ACCU-CHEK KEYONA PLUS W/DEVICE KIT Use for testing bloodsugars three times daily as needed ACCU-CHEK KEYONA PLUS W/DEVICE KIT BLOOD GLUCOSE MONITORING SUPPL Inactive ACCU-CHEK KEYONA PLUS STRP Use for testing bloodsugars three times daily as needed ACCU-CHEK KEYONA PLUS STRP GLUCOSE BLOOD Inactive ACCU-CHEK FASTCLIX LANCETS MISC Use to check bloodsugar three times daily as needed ACCU-CHEK FASTCLIX LANCETS MISC 16196628286 LANCETS Inactive TRAMADOL HCL 50 MG TABS 1 tablets every 6 hours as needed for pain TRAMADOL HCL 50 MG TABS 978135 TRAMADOL HCL Inactive VENLAFAXINE HCL 75 MG TABS 1 po BID VENLAFAXINE HCL 75 MG TABS 429197 VENLAFAXINE HCL Inactive HYDROCODONE-ACETAMINOPHEN 5-500 MG TABS take one po Q 4-6 hours prn HYDROCODONE-ACETAMINOPHEN 5-500 MG TABS HYDROCODONE- ACETAMINOPHEN Inactive LORTAB 5 5-500 MG TABS 1/2 to 1 tablet by mouth every 4 hours as needed for pain LORTAB 5 5-500 MG TABS HYDROCODONE- ACETAMINOPHEN Inactive LAMISIL 250 MG TAB 1 po qd LAMISIL 250 MG TAB 818189 TERBINAFINE HCL Inactive VENLAFAXINE HCL 37.5 MG TABS 1 po BID VENLAFAXINE HCL 37.5 MG TABS 364689 VENLAFAXINE HCL Inactive CIPRO 500 MG TAB 1 tablet by mouth twice daily CIPRO 500 MG TAB 161546 CIPROFLOXACIN HCL Inactive VENLAFAXINE HCL 75 MG TABS 1 po BID VENLAFAXINE HCL 75 MG TABS 881167 VENLAFAXINE HCL Inactive SIMVASTATIN 40 MG TABS Take one by mouth daily SIMVASTATIN 40 MG TABS 837059 SIMVASTATIN Inactive OMEPRAZOLE 20 MG TBEC 1 PO 30 MIN BEFORE 1ST MEAL OMEPRAZOLE 20 MG TBEC 821674 OMEPRAZOLE Inactive FENOFIBRATE 145 MG TABS 1 po qd FENOFIBRATE 145 MG TABS 592297 FENOFIBRATE Inactive BACTRIM DS 800-160 MG TABS 1 bid x 14 day start 09-28-13 BACTRIM DS 800-160 MG TABS 049742 SULFAMETHOXAZOLE-TRIMETHOPRIM Inactive B-12 100 MCG TABS Take one by mouth daily B-12 100 MCG TABS CYANOCOBALAMIN Inactive GABAPENTIN 100 MG CAPS 1 po bid GABAPENTIN 100 MG CAPS 515193 GABAPENTIN Inactive HYDROCODONE-ACETAMINOPHEN 5-325 MG TABS 1 tab by mouth every 6 hours as needed for pain HYDROCODONE-ACETAMINOPHEN 5-325 MG TABS 819434 HYDROCODONE-ACETAMINOPHEN Inactive CIPRO 500 MG TABS 1 bid x 14 days start 09-28-13 CIPRO 500 MG TABS 876324 CIPROFLOXACIN HCL Inactive ALIGN 4 MG CAPS [...] as needed DICLOFENAC SODIUM 50 MG TBEC 161074 DICLOFENAC SODIUM Inactive PREDNISONE 20 MG TAB 2 tablets once daily for 2 days, then 1 tablet once daily for 2 days PREDNISONE 20 MG TAB 657495 PREDNISONE Inactive TRUEDRAW LANCING DEVICE MISC Test [...] 2 weeks TRIAMCINOLONE ACETONIDE 0.1 % OINT 8446208 TRIAMCINOLONE ACETONIDE Inactive PREDNISONE 20 MG TAB 2 tabs daily for 3 days, 1 tab daily for 3 days, 1/2 tab daily for 2 days PREDNISONE 20 MG TAB 608115 PREDNISONE Inactive PREDNISONE 20 MG TAB 2 tabs daily for 3 days, 1 tab daily for 3 days, 1/2 tab daily for 2 days PREDNISONE 20 MG TAB 524128 PREDNISONE Inactive BACTRIM DS 800-160 MG TABS 1 po BID x 7 days BACTRIM DS 800-160 MG TABS 025766 SULFAMETHOXAZOLE-TRIMETHOPRIM Inactive Immunizations Vaccine Administration Date Value Standard Description Seasonal influenza vaccine, injectable, containing preservative, for > 3 years old (Afluria, FluLaval, Fluzone, Fluvirin, Fluarix, Agriflu(>=18 yo)) Fluzone (>3 yrs.) [[id number]] Influenza, seasonal, injectable influenza immunization (Flu Vax) has been administered 02/22/2012 influenza virus vaccine, unspecified formulation Seasonal influenza vaccine, injectable, containing preservative, for > 3 years old (Afluria, FluLaval, Fluzone, Fluvirin, Fluarix, Agriflu(>=18 yo)) Fluzone (>3 yrs.) [[id number]] Influenza, seasonal, injectable Vital Signs Date Name [...] CBC - Chemistry sodium, serum 143 mmol/L 452-164 8048/03/10 potassium, serum 4.9 mmol/L 3.5-5.2 chloride, serum [...] MICROALBUMIN - Chemistry sodium, serum 142 mmol/L 534-686 4767/10/08 potassium, serum 4.5 mmol/L 3.5-5.2 chloride, serum [...] 0.30 mg/dL 0.00-1.00 cholesterol, serum 111 mg/dL 027-994 2039/07/28 triglyceride, serum, fasting 177 mg/dL 30-200 HDL [...] m[iU]/mL Encounters Code Encounter Date Provider Facility CPT-04158 Level 4 Est. Patient 13:50:18 METAL STAMPER Tu Landeros MD [facility] CPT-99165 Level 3 Est. Patient 10:30:04 CDT Tu Landeros MD [facility] CPT-06689 Level 4 Est. Patient 11:03:38 CDT Tu Landeros MD [facility] CPT-84418 Level 3 Est. Patient 10:20:44 CDT Fab Morales DO [facility] CPT-62427 Level 4 Est. Patient 14:38:57 CDT Tu Landeros MD [facility] CPT-11594 Level 4 Est. Patient 14:27:39 METAL STAMPER Tu Landeros MD [facility] CPT-96003 Level 4 Est. Patient 09:45:25 CDT Tu Landeros MD [facility] CPT-09632 Level 4 Est. Patient 09:05:20 METAL STAMPER Tu Landeros MD [facility] CPT-62951 Level 4 Est. Patient 14:09:06 CDT Tu Landeros MD [facility] CPT-35529 Level 3 Est. Patient 13:36:54 CDT Tu Landeros MD [facility] CPT-31199 Level 3 Est. Patient 08:59:14 CDT Tu Landeros MD [facility] CPT-21732 Level 3 Est. Patient 13:48:35 CDT Fab Morales DO [facility] CPT-44918 Level 4 Est. Patient 10:05:48 CDT Tu Landeros MD [facility] CPT-61119 Level 3 Est. Patient 13:38:42 CDT Marek BANKS [facility] CPT-82234 Level 5 Est. Patient 08:08:39 CDT Jerrica FRANCIS [facility] CPT-82792 Level 4 Est. Patient 14:23:38 CDT Tu Landeros MD [facility] CPT-93664 Level 3 Est. Patient 11:44:04 CDT Tu Landeros MD [facility] CPT-60761 Level 3 Est. Patient 11:03:20 METAL STAMPER Tu Landeros MD [facility] CPT-27171 Level 3 Est. Patient 11:03:14 METAL STAMPER Tu Landeros MD [facility] CPT-22937 Level 3 Est. Patient 12:42:49 CDT Tu Landeros MD [facility] CPT-43193 Level 3 Est. Patient 11:52:06 CDT Tu Landeros MD [facility] CPT-00631 Level 3 Est. Patient 13:58:11 CDT Tu Landeros MD [facility] CPT-39236 Level 3 Est. Patient 17:50:07 CDT Fab Morales DO [facility] CPT-51453 Level 3 Est. Patient 12:06:29 CDT Elvira Cervantes MD PhD [facility] CPT-90559 Level 3 Est. Patient 15:50:32 CDT Tu Landeros MD [facility] CPT-64524 Level 4 Est. Patient 16:08:29 CDT Tu Landeros MD [facility] CPT-76213 Level 3 Est. Patient 16:04:19 CDT Tu Landeros MD [facility] CPT-39585 Level 3 Est. Patient 11:22:30 METAL STAMPER Tu Landeros MD [facility] CPT-17121 Level 4 Est. Patient 16:24:02 METAL STAMPER Tu Landeros MD [facility] CPT-01325 Level 3 Est. Patient 17:21:23 METAL STAMPER Tu Landeros MD [facility] Procedures Code Procedure Name Date Entry Date Standard Description CPT-92486 Postop F/U Visit 10:02:45 CDT CPT-LR Lesion Removal 09:02:56 CDT CPT-JTINJ Asp/Joint Injection 15:51:27 METAL STAMPER CPT-OV Office Visit 15:52:02 METAL STAMPER CPT-OV Office Visit 15:45:11 CDT CPT-000 Give Zostavax 14:09:06 CDT CPT-82137 Administration single or combination vaccine inc oral 15 :19:04 CDT CPT-93657 Zoster Vaccine (Zostavax) 15:19:04 CDT CPT-57763 Administration single or combination vaccine inc oral 20 :51:03 CDT CPT-64344 Influenza split virus > age 3 20:51:03 CDT CPT-38799 No Charge Offi Visit 14:52:03 CDT CPT-OV Office Visit 14:57:43 CDT CPT-OV Office Visit 15:22:32 CDT CPT-52872 Administration single or combination vaccine inc oral 11 :33:15 CDT CPT-97274 Influenza split virus > age 3 11:33:15 CDT
--- OUTSIDE RECORDS SUMMARY | 2018-04-25 14:14 | XMS REPORT | Clinical Summary ---
Author Author Admin, SACHI Organization [employer] Address Unknown Phone Unavailable Allergies, Adverse [...] Patient Instruction DICLOFENAC SODIUM 75 MG ORAL TABLET DELAYED RELEASE 1 po BID PRN Pain DICLOFENAC SODIUM 45343223024 Active Tu Landeros MD Active GABAPENTIN 100 MG ORAL CAPSULE 1 po TID GABAPENTIN 50110789580 Active Tu Landeros MD Active DICLOFENAC SODIUM 50 MG ORAL TABLET DELAYED RELEASE 1 po BID PRN Pain DICLOFENAC SODIUM 96803455521 No Longer Active Tu Landeros MD Active CYCLOBENZAPRINE HCL 10 MG ORAL TABLET 1 po TID PRN Muscle Spasm CYCLOBENZAPRINE HCL 06878307638 No Longer Active Tu Landeros MD Active INVOKANA 100 MG ORAL TABLET 1 po qd CANAGLIFLOZIN 83500547531 Active Tu Landeros MD Active GLIPIZIDE 5 MG ORAL TABLET 1 po qd GLIPIZIDE 56782577347 No Longer Active Tu Landeros MD Active VENLAFAXINE HCL 75 MG ORAL TABLET 1 po BID VENLAFAXINE HCL 34092069834 Active Tu Landeros MD Active GLIMEPIRIDE 1 MG ORAL TABLET 1 po qd GLIMEPIRIDE 83080281917 No Longer Active Tu Landeros MD Active TRUE METRIX BLOOD GLUCOSE TEST IN VITRO STRIP Test blood sugar BID Dx: E11.9 GLUCOSE BLOOD 87393405779 Active Tu Landeros MD Active TRUE METRIX AIR GLUCOSE METER w/Device KIT Test blood glucose BID Dx: E11.9 BLOOD GLUCOSE MONITORING SUPPL 61574497692 Active Tu Landeros MD Active TRUETEST TEST IN VITRO STRIP test blood sugar twice daily. DX 250.0 GLUCOSE BLOOD 35632165404 No Longer Active Mirna Stanley LPN Active TRUEDRAW LANCING DEVICE test blood sugar twice daily dx: 250.00 LANCET DEVICES 65383458629 No Longer Active Mirna Stanley LPN Active ENALAPRIL MALEATE 20 MG ORAL TABLET 2 po qd ENALAPRIL MALEATE 70243635132 Active Tu Landeros MD Active SUPER B COMPLEX/VITAMIN C ORAL TABLET 1 qd B COMPLEX- C 31048589908 No Longer Active Tu Landeros MD Active ASPIRIN EC 81 MG ORAL TABLET DELAYED RELEASE 1 po qd ASPIRIN 27221862066 Active Tu Landeros MD Active GLUCOSAMINE 500 MG TABS 2 po qd GLUCOSAMINE Active Tu Landeros MD Active SIMVASTATIN 40 MG ORAL TABLET 0.5 po qHS SIMVASTATIN 71008154569 Active Tu Landeros MD Active FISH OIL 1000 MG ORAL CAPSULE 1 po qd OMEGA-3 FATTY ACIDS 56244113063 Active Tu Landeros MD Active METFORMIN HCL 1000 MG ORAL TABLET 1 po BID METFORMIN HCL 37362114351 Active Tu Landeros MD Active KLOR-CON 10 10 MEQ ORAL TABLET EXTENDED RELEASE 2 po qd POTASSIUM CHLORIDE 86216894028 Active Tu Landeros MD Active FUROSEMIDE 40 MG ORAL TABLET 1 po qd FUROSEMIDE 06160228758 Active Tu Landeros MD Active REQUIP 2 MG ORAL TABLET 1 po qHS PRN Restless legs ROPINIROLE HCL 02918670119 Active Tu Landeros MD Active REQUIP 2 MG ORAL TABLET Take one tablet at bedtime prn ROPINIROLE HCL 67177498570 No Longer Active Tu Landeros MD Active VENTOLIN HFA 108 (90 Base) MCG/ACT INHALATION AEROSOL SOLUTION 1-2 puffs every 4 hours if needed for cough/congestion ALBUTEROL SULFATE 48786759925 No Longer Active Ambika Aden APRN Active ZITHROMAX 250 MG ORAL TABLET 2 po today, then 1 po q days 2-5 AZITHROMYCIN 01550549851 No Longer Active Miranda Suresh APRN Active FLONASE 50 MCG/ACT NASAL SUSPENSION 1 spray each nostril twice daily until bottle empty FLUTICASONE PROPIONATE 11681379697 No Longer Active Tu Landeros MD Active COLACE 100 MG ORAL CAPSULE 1 po BID PRN Constipation DOCUSATE SODIUM 17245134550 Active Tu Landeros MD Active TRUERESULT BLOOD GLUCOSE w/Device KIT test blood sugar twice daily dx 250.00 BLOOD GLUCOSE MONITORING SUPPL 53509646432 No Longer Active Tu Landeros MD Active TRUEDRAW LANCING DEVICE Test twice a day dx 250.0 LANCET DEVICES 23646069559 No Longer Active Tu Landeros MD Active PREDNISONE 20 MG ORAL TABLET 2 tablets once daily for 2 days, then 1 tablet once daily for 2 days PREDNISONE 28572909738 No Longer Active Tu Landeros MD Active DICLOFENAC SODIUM 50 MG ORAL TABLET DELAYED RELEASE 1 tablet by mouth three times a day as needed DICLOFENAC SODIUM 55041839501 No Longer Active Fab Morales DO Active EMBRACE BLOOD GLUCOSE TEST IN VITRO STRIP test blood sugar twice daily DX 250.0 GLUCOSE BLOOD 10361031469 No Longer Active Tu Landeros MD Active TRUETEST TEST IN VITRO STRIP test blood sugar three times daily dx: 250.00 GLUCOSE BLOOD 16776231831 No Longer Active Suze Corey RMA Active TRUERESULT BLOOD GLUCOSE w/Device KIT use to test blood sugar tid dx: 250.00 BLOOD GLUCOSE MONITORING SUPPL 20395084745 No Longer Active Suze Corey RMA Active ALIGN 4 MG ORAL CAPSULE 1 tid PROBIOTIC PRODUCT 96017045258 No Longer Active Shaun Sy MD Active CIPRO 500 MG ORAL TABLET 1 bid x 14 days start 09-28-13 CIPROFLOXACIN HCL 15644137165 No Longer Active Shaun Sy MD Active TRAMADOL HCL 50 MG ORAL TABLET 1-2 tablets every 6 hours as needed for pain TRAMADOL HCL 55819709197 Active Tu Landeros MD Active HYDROCODONE-ACETAMINOPHEN 5-325 MG ORAL TABLET 1 tab by mouth every 6 hours as needed for pain HYDROCODONE-ACETAMINOPHEN 37230586456 No Longer Active Tu Landeros MD Active OMEPRAZOLE 20 MG ORAL CAPSULE DELAYED RELEASE 1 po q a.m. OMEPRAZOLE 75114187155 Active Fab Morales DO Active GABAPENTIN 100 MG ORAL CAPSULE 1 po bid GABAPENTIN 50611451988 No Longer Active Tu Landreos MD Active B-12 100 MCG ORAL TABLET Take one by mouth daily CYANOCOBALAMIN 63173151852 No Longer Active Tu Landeros MD Active BACTRIM DS 800-160 MG ORAL TABLET 1 bid x 14 day start 09-28-13 SULFAMETHOXAZOLE-TRIMETHOPRIM 06971535878 No Longer Active Tu Landeros MD Active CARVEDILOL 12.5 MG ORAL TABLET 1 po BID CARVEDILOL 77367214217 Active Tu Landeros MD Active TRILIPIX 135 MG ORAL CAPSULE DELAYED RELEASE 1 q hs CHOLINE FENOFIBRATE 95652072154 Active Tu Landeros MD Active FENOFIBRATE 145 MG ORAL TABLET 1 po qd FENOFIBRATE 23959612358 No Longer Active JASPREET Perez Active OMEPRAZOLE 20 MG ORAL TABLET DELAYED RELEASE 1 PO 30 MIN BEFORE 1ST MEAL 2010 OMEPRAZOLE 16379406601 No Longer Active JASPREET Perez Active SIMVASTATIN 40 MG ORAL TABLET Take one by mouth daily SIMVASTATIN 54822407023 No Longer Active JASPREET Perez Active VENLAFAXINE HCL 75 MG ORAL TABLET 1 po BID VENLAFAXINE HCL 39951297040 No Longer Active JASPREET Perez Active CIPRO 500 MG ORAL TABLET 1 tablet by mouth twice daily CIPROFLOXACIN HCL 62454323513 No Longer Active Tu Landeros MD Active VENLAFAXINE HCL 37.5 MG ORAL TABLET 1 po BID VENLAFAXINE HCL 89515906881 No Longer Active Suze VOGEL Active LAMISIL 250 MG ORAL TABLET 1 po qd TERBINAFINE HCL 43105241608 No Longer Active Tu Landeros MD Active LORTAB 5-500 MG ORAL TABLET 1/2 to 1 tablet by mouth every 4 hours as needed for pain HYDROCODONE-ACETAMINOPHEN 96834464512 No Longer Active Tu Landeros MD Active HYDROCODONE-ACETAMINOPHEN 5-500 MG ORAL TABLET take one po Q 4-6 hours prn HYDROCODONE-ACETAMINOPHEN 64959525415 No Longer Active Tu Landeros MD Active BACTRIM DS 800-160 MG ORAL TABLET 1 po BID x 7 days SULFAMETHOXAZOLE-TRIMETHOPRIM 20046908559 No Longer Active Tu Landeros MD Active VENLAFAXINE HCL 75 MG ORAL TABLET 1 po BID VENLAFAXINE HCL 36235038646 No Longer Active Elvira Cervantes MD PhD Active TRAMADOL HCL 50 MG ORAL TABLET 1 tablets every 6 hours as needed for pain TRAMADOL HCL 32979864312 No Longer Active Tu Landeros MD Active ACCU-CHEK FASTCLIX LANCETS Use to check bloodsugar three times daily as needed LANCETS 65826626214 No Longer Active Tu Landeros MD Active ACCU-CHEK KEYONA PLUS IN VITRO STRIP Use for testing bloodsugars three times daily as needed GLUCOSE BLOOD 95307455415 No Longer Active Tu Landeros MD Active ACCU-CHEK KEYONA PLUS w/Device KIT Use for testing bloodsugars three times daily as needed BLOOD GLUCOSE MONITORING SUPPL 25089544564 No Longer Active Tu Landeros MD Active SPIRONOLACTONE 25 MG ORAL TABLET 0.5 tablet by mouth daily 09/09 SPIRONOLACTONE 72492456562 No Longer Active Tu Landeros MD Active ALPRAZOLAM 0.5 MG ORAL TABLET 1 tab every 6hrs as needed ALPRAZOLAM 23591007590 No Longer Active Tu Landeros MD Active AUGMENTIN 875-125 MG ORAL TABLET 1 tab by mouth twice daily with food AMOXICILLIN-POT CLAVULANATE 93956063862 No Longer Active Tu Landeros MD Active PREDNISONE 20 MG ORAL TABLET 2 tabs daily for 3 days, 1 tab daily for 3 days, 1/2 tab daily for 2 days PREDNISONE 61235981351 No Longer Active Tu Landeros MD Active XANAX 0.5 MG ORAL TABLET 1 tablet every 6 hrs prn ALPRAZOLAM 90374685432 No Longer Active Tu Landeros MD Active PREDNISONE 20 MG ORAL TABLET 2 tabs daily for 3 days, 1 tab daily for 3 days, 1/2 tab daily for 2 days PREDNISONE 94576561154 No Longer Active Tu Landeros MD Active TRIAMCINOLONE ACETONIDE 0.1 % EXTERNAL OINTMENT Apply to affected areas TID for up to 2 weeks TRIAMCINOLONE ACETONIDE 64949999867 No Longer Active Tu Lanedros MD Active LORTAB 5-500 MG ORAL TABLET 1/2 to 1 tablet by mouth every 4 hours as needed for pain HYDROCODONE-ACETAMINOPHEN 65024713579 No Longer Active Tu Landeros MD Active MULTIVITAMINS TABS Take one by mouth daily MULTIPLE VITAMIN 68575933978 No Longer Active Tu Landeros MD Active MELATONIN 5 MG ORAL TABLET Take one by mouth daily MELATONIN 07317054850 No Longer Active Tu Landeros MD Active SOMA 350 MG ORAL TABLET 1 po q 6 hours prn spasm CARISOPRODOL 86881011355 No Longer Active Tu Landeros MD Active MECLIZINE HCL 25 MG ORAL TABLET CHEWABLE 1 four times a day as needed for dizziness MECLIZINE HCL 91388131025 No Longer Active Fab Morales DO Active ANGEL BREEZE 2 TEST IN VITRO DISK test tid prn GLUCOSE BLOOD 19161715454 No Longer Active Negra Scott RN Active REGLAN 10 MG ORAL TABLET 1 po TID PRN Nausea METOCLOPRAMIDE HCL 54716120797 No Longer Active Tu Landeros MD Active METFORMIN HCL 500 MG ORAL TABLET 1 PO BID METFORMIN HCL 49569323135 No Longer Active Tu Landeros MD Active AMBIEN 10 MG ORAL TABLET 1 tab by mouth at bedtime as needed for sleep 06/10 ZOLPIDEM TARTRATE 18851390170 No Longer Active Tu Landeros MD Active FLUOXETINE HCL 40 MG ORAL CAPSULE 1 po q day FLUOXETINE HCL 09600003068 No Longer Active Mayra [place] Active TRILIPIX 135 MG ORAL CAPSULE DELAYED RELEASE 1 po qd CHOLINE FENOFIBRATE 77098532357 No Longer Active Tu Landeros MD Active AMBIEN 10 MG ORAL TABLET 1 tab by mouth at bedtime as needed for sleep 06/10 AMBIEN 10 MG ORAL TABLET 454021 ZOLPIDEM TARTRATE Inactive METFORMIN HCL 500 MG ORAL TABLET 1 PO BID METFORMIN HCL 500 MG ORAL TABLET 208564 METFORMIN HCL Inactive REGLAN 10 MG ORAL TABLET 1 po TID PRN Nausea REGLAN 10 MG ORAL TABLET 333377 METOCLOPRAMIDE HCL Inactive MECLIZINE HCL 25 MG ORAL TABLET CHEWABLE 1 four times a day as needed for dizziness MECLIZINE HCL 25 MG ORAL TABLET CHEWABLE 960771 MECLIZINE HCL Inactive SOMA 350 MG ORAL TABLET 1 po q 6 hours prn spasm SOMA 350 MG ORAL TABLET 477337 CARISOPRODOL Inactive MELATONIN 5 MG ORAL TABLET Take one by mouth daily MELATONIN 5 MG ORAL TABLET 549983 MELATONIN Inactive MULTIVITAMINS TABS Take one by mouth daily MULTIVITAMINS TABS MULTIPLE VITAMIN Inactive LORTAB 5-500 MG ORAL TABLET 1/2 to 1 tablet by mouth every 4 hours as needed for pain LORTAB 5-500 MG ORAL TABLET 678474 HYDROCODONE-ACETAMINOPHEN Inactive XANAX 0.5 MG ORAL TABLET 1 tablet every 6 hrs prn XANAX 0.5 MG ORAL TABLET 779746 ALPRAZOLAM Inactive AUGMENTIN 875-125 MG ORAL TABLET 1 tab by mouth twice daily with food AUGMENTIN 875-125 MG ORAL TABLET 756536 AMOXICILLIN-POT CLAVULANATE Inactive ALPRAZOLAM 0.5 MG ORAL TABLET 1 tab every 6hrs as needed ALPRAZOLAM 0.5 MG ORAL TABLET 766851 ALPRAZOLAM Inactive SPIRONOLACTONE 25 MG ORAL TABLET 0.5 tablet by mouth daily 09/09 SPIRONOLACTONE 25 MG ORAL TABLET 304767 SPIRONOLACTONE Inactive ACCU-CHEK KEYONA PLUS w/Device KIT [...] times daily as needed ACCU-CHEK FASTCLIX LANCETS 42880084505 LANCETS Inactive TRAMADOL HCL 50 MG ORAL TABLET 1 tablets every 6 hours as needed for pain TRAMADOL HCL 50 MG ORAL TABLET 807388 TRAMADOL HCL Inactive VENLAFAXINE HCL 75 MG ORAL TABLET 1 po BID VENLAFAXINE HCL 75 MG ORAL TABLET 284917 VENLAFAXINE HCL Inactive HYDROCODONE-ACETAMINOPHEN 5-500 MG ORAL TABLET take one po Q 4-6 hours prn HYDROCODONE-ACETAMINOPHEN 5-500 MG ORAL TABLET 213132 HYDROCODONE-ACETAMINOPHEN Inactive LORTAB 5-500 MG ORAL TABLET 1/2 to 1 tablet by mouth every 4 hours as needed for pain LORTAB 5-500 MG ORAL TABLET 444834 HYDROCODONE-ACETAMINOPHEN Inactive LAMISIL 250 MG ORAL TABLET 1 po qd LAMISIL 250 MG ORAL TABLET 103765 TERBINAFINE HCL Inactive VENLAFAXINE HCL 37.5 MG ORAL TABLET 1 po BID VENLAFAXINE HCL 37.5 MG ORAL TABLET 447097 VENLAFAXINE HCL Inactive CIPRO 500 MG ORAL TABLET 1 tablet by mouth twice daily CIPRO 500 MG ORAL TABLET 187273 CIPROFLOXACIN HCL Inactive VENLAFAXINE HCL 75 MG ORAL TABLET 1 po BID VENLAFAXINE HCL 75 MG ORAL TABLET 802976 VENLAFAXINE HCL Inactive SIMVASTATIN 40 MG ORAL TABLET Take one by mouth daily SIMVASTATIN 40 MG ORAL TABLET 284136 SIMVASTATIN Inactive OMEPRAZOLE 20 MG ORAL TABLET DELAYED RELEASE 1 PO 30 MIN BEFORE 1ST MEAL 2010 OMEPRAZOLE 20 MG ORAL TABLET DELAYED RELEASE 527961 OMEPRAZOLE Inactive FENOFIBRATE 145 MG ORAL TABLET 1 po qd FENOFIBRATE 145 MG ORAL TABLET 427929 FENOFIBRATE Inactive BACTRIM DS 800-160 MG ORAL TABLET 1 bid x 14 day start 09-28-13 BACTRIM DS 800-160 MG ORAL TABLET 087390 SULFAMETHOXAZOLE- TRIMETHOPRIM Inactive B-12 100 MCG ORAL TABLET Take one by mouth daily B-12 100 MCG ORAL TABLET CYANOCOBALAMIN Inactive GABAPENTIN 100 MG ORAL CAPSULE 1 po bid GABAPENTIN 100 MG ORAL CAPSULE 160492 GABAPENTIN Inactive HYDROCODONE-ACETAMINOPHEN 5-325 MG ORAL TABLET 1 tab by mouth every 6 hours as needed for pain HYDROCODONE-ACETAMINOPHEN 5-325 MG ORAL TABLET 732545 HYDROCODONE-ACETAMINOPHEN Inactive CIPRO 500 MG ORAL TABLET 1 bid x 14 days start 09-28-13 CIPRO 500 MG ORAL TABLET 869125 CIPROFLOXACIN HCL Inactive ALIGN 4 MG ORAL [...] SODIUM 50 MG ORAL TABLET DELAYED RELEASE 070899 DICLOFENAC SODIUM Inactive PREDNISONE 20 MG ORAL TABLET 2 tablets once daily for 2 days, then 1 tablet once daily for 2 days PREDNISONE 20 MG ORAL TABLET 591881 PREDNISONE Inactive TRUEDRAW LANCING DEVICE Test twice a day dx 250.0 TRUEDRAW LANCING DEVICE LANCET DEVICES Inactive TRUERESULT BLOOD GLUCOSE w/Device KIT test blood sugar twice daily dx 250.00 TRUERESULT BLOOD GLUCOSE w/Device KIT BLOOD GLUCOSE MONITORING SUPPL Inactive FLONASE 50 MCG/ACT NASAL SUSPENSION 1 spray each nostril twice daily until bottle empty FLONASE 50 MCG/ACT NASAL SUSPENSION 6747353 FLUTICASONE PROPIONATE Inactive VENTOLIN HFA 108 (90 Base) MCG/ACT INHALATION AEROSOL SOLUTION 1-2 puffs every 4 hours if needed for cough/congestion VENTOLIN HFA 108 (90 Base) MCG/ACT INHALATION AEROSOL SOLUTION ALBUTEROL SULFATE Inactive REQUIP 2 MG ORAL TABLET Take one tablet at bedtime prn REQUIP 2 MG ORAL TABLET 784274 ROPINIROLE HCL Inactive SUPER B COMPLEX/VITAMIN C ORAL TABLET 1 qd SUPER B COMPLEX/VITAMIN C ORAL TABLET 08101767413 B COMPLEX-C Inactive TRUEDRAW LANCING DEVICE test blood sugar twice daily dx: 250.00 TRUEDRAW LANCING DEVICE LANCET DEVICES Inactive TRUETEST TEST IN VITRO STRIP test blood sugar twice daily. DX 250.0 TRUETEST TEST IN VITRO STRIP GLUCOSE BLOOD Inactive CYCLOBENZAPRINE HCL 10 MG ORAL TABLET 1 po TID PRN Muscle Spasm CYCLOBENZAPRINE HCL 10 MG ORAL TABLET 844354 CYCLOBENZAPRINE HCL Inactive DICLOFENAC SODIUM 50 MG ORAL TABLET DELAYED RELEASE 1 po BID PRN Pain DICLOFENAC SODIUM 50 MG ORAL TABLET DELAYED RELEASE 034169 DICLOFENAC SODIUM Inactive TRIAMCINOLONE ACETONIDE 0.1 % EXTERNAL OINTMENT Apply to affected areas TID for up to 2 weeks TRIAMCINOLONE ACETONIDE 0.1 % EXTERNAL OINTMENT 6587087 TRIAMCINOLONE ACETONIDE Inactive PREDNISONE 20 MG ORAL TABLET 2 tabs daily for 3 days, 1 tab daily for 3 days, 1/2 tab daily for 2 days PREDNISONE 20 MG ORAL TABLET 784329 PREDNISONE Inactive PREDNISONE 20 MG ORAL TABLET 2 tabs daily for 3 days, 1 tab daily for 3 days, 1/2 tab daily for 2 days PREDNISONE 20 MG ORAL TABLET 117986 PREDNISONE Inactive BACTRIM DS 800-160 MG ORAL TABLET 1 po BID x 7 days BACTRIM DS 800-160 MG ORAL TABLET 041951 SULFAMETHOXAZOLE-TRIMETHOPRIM Inactive ZITHROMAX 250 MG ORAL TABLET 2 po today, then 1 po q days 2-5 ZITHROMAX 250 MG ORAL TABLET 903154 AZITHROMYCIN Inactive Advance Directives Directive Description Start Date DISCUSSED WITH PATIENT -- NO DECISION MADE Immunizations Vaccine Administration Date Value Standard Description Seasonal influenza vaccine, injectable, containing preservative, for > 3 years old (Afluria, FluLaval, Fluzone, Fluvirin, Fluarix, Agriflu(>=18 yo)) Fluzone (>3 yrs.) [[id number]] Influenza, seasonal, injectable influenza immunization (Flu Vax) has been administered 02/22/2012 influenza virus vaccine, unspecified formulation Seasonal influenza vaccine, injectable, containing preservative, for > 3 years old (Afluria, FluLaval, Fluzone, Fluvirin, Fluarix, Agriflu(>=18 yo)) Fluzone (>3 yrs.) [[id number]] Influenza, seasonal, injectable Vital Signs Date Name [...] Name Value Unit Range Description Lab Report: COMPREHENSIVE METABOLIC PANEL, LIPID PANEL, HEMOGLOBIN A1c - Chemistry cholesterol, serum 135 mg/dL 448-632 4514/05/17 HDL cholesterol, serum 41 mg/dL > OR=46 triglyceride, serum, fasting 206 mg/dL <150 LDL cholesterol, serum 53 MG/DL (CALC) mg/dL <130 cholesterol/HDL ratio, serum 3.3 (calc) < OR=5.0 Lab Report: HGBA1C - Chemistry hemoglobin A1C, blood, as % of total hemoglobin 6.5 % 4.3-6.0 Encounters Code Encounter Date Provider Facility CPT-12694 Level 3 Est. Patient 14:20:36 CDT Tu Landeros MD [facility] CPT-46734 Level 4 Est. Patient 14:28:34 CDT Tu Landeros MD [facility] CPT-59079 Level 3 Est. Patient 13:33:09 CDT Tu Landeros MD [facility] CPT-43601 Level 4 Est. Patient 14:29:21 CDT Tu Landeros MD [facility] CPT-79045 Level 4 Est. Patient 09:08:17 SENIOR [employer] ADMINISTRATOR Tu Landeros MD [facility] CPT-82599 Level 4 Est. Patient 14:40:19 CDT Tu Landeros MD [facility] CPT-69770 Level 4 Est. Patient 14:06:04 SENIOR LINUX UNIX ADMINISTRATOR Tu Landeros MD [facility] CPT-45146 Level 3 Est. Patient 14:05:18 SENIOR LINUX UNIX ADMINISTRATOR Tu Landeros MD [facility] CPT-62898 Level 3 Est. Patient 10:06:54 SENIOR LINUX UNIX ADMINISTRATOR Miranda Suresh APRN [facility] CPT-98089 Level 4 Est. Patient 13:50:18 SENIOR LINUX UNIX ADMINISTRATOR Tu Landeros MD [facility] CPT-55226 Level 3 Est. Patient 10:30:04 CDT Tu Landeros MD [facility] CPT-01686 Level 4 Est. Patient 11:03:38 CDT Tu Landeros MD [facility] CPT-58540 Level 3 Est. Patient 10:20:44 CDT Fab Morales DO [facility] CPT-53048 Level 4 Est. Patient 14:38:57 CDT Tu Landeros MD [facility] CPT-90539 Level 4 Est. Patient 14:27:39 SENIOR LINUX UNIX ADMINISTRATOR Tu Landeros MD [facility] CPT-36669 Level 4 Est. Patient 09:45:25 CDT Tu Landeros MD [facility] CPT-60494 Level 4 Est. Patient 09:05:20 SENIOR LINUX UNIX ADMINISTRATOR Tu Landeros MD [facility] CPT-45479 Level 4 Est. Patient 14:09:06 CDT Tu Landeros MD [facility] CPT-12958 Level 3 Est. Patient 13:36:54 CDT Tu Landeros MD [facility] CPT-68168 Level 3 Est. Patient 08:59:14 CDT Tu Landeros MD [facility] CPT-15046 Level 3 Est. Patient 13:48:35 CDT Fab Morales DO [facility] CPT-71488 Level 4 Est. Patient 10:05:48 CDT Tu Landeros MD [facility] CPT-32129 Level 3 Est. Patient 13:38:42 CDT Marek BANKS [facility] CPT-52571 Level 5 Est. Patient 08:08:39 CDT Jerrica FRANCIS [facility] CPT-39947 Level 4 Est. Patient 14:23:38 CDT Tu Landeros MD [facility] CPT-49589 Level 3 Est. Patient 11:44:04 CDT Tu Landeros MD [facility] CPT-18662 Level 3 Est. Patient 11:03:20 SENIOR LINUX UNIX ADMINISTRATOR Tu Landeros MD [facility] CPT-79335 Level 3 Est. Patient 11:03:14 SENIOR LINUX UNIX ADMINISTRATOR Tu Landeros MD [facility] CPT-74449 Level 3 Est. Patient 12:42:49 CDT Tu Landeros MD [facility] CPT-20830 Level 3 Est. Patient 11:52:06 CDT Tu Landeros MD [facility] CPT-10526 Level 3 Est. Patient 13:58:11 CDT Tu Landeros MD [facility] CPT-95168 Level 3 Est. Patient 17:50:07 CDT Fab Morales DO [facility] CPT-75232 Level 3 Est. Patient 12:06:29 CDT Elvira Cervantes MD [facility] CPT-61354 Level 3 Est. Patient 15:50:32 CDT Tu Landeros MD [facility] CPT-09620 Level 4 Est. Patient 16:08:29 CDT Tu Landeros MD [facility] CPT-31432 Level 3 Est. Patient 16:04:19 CDT Tu Landeros MD [facility] CPT-48133 Level 3 Est. Patient 11:22:30 SENIOR LINUX UNIX ADMINISTRATOR Tu Landeros MD [facility] CPT-39053 Level 4 Est. Patient 16:24:02 SENIOR LINUX UNIX ADMINISTRATOR Tu Landeros MD [facility] CPT-73162 Level 3 Est. Patient 17:21:23 SENIOR LINUX UNIX ADMINISTRATOR Tu Landeros MD [facility] Procedures Code Procedure Name Date Entry Date Standard Description CPT-84216 Shoulder, right, comp min 2V - XRAY USE ONLY 13:50:22 CDT CPT-G0009 Administration of Pneumococcal Vaccine 15:08:26 CDT CPT-49959 Prevnar 13 Intramuscular Suspension 15:08:26 CDT 10/08 CPT-G0439 [facility] Annual Wellness Exam 14:29:22 CDT CPT-64139 Venipuncture Draw Fee 13:15:35 CDT CPT-56137 Magnesium - LAB USE ONLY 11:14:20 SENIOR LINUX UNIX ADMINISTRATOR CPT-32030 Lipid - LAB USE ONLY 11:14:20 SENIOR LINUX UNIX ADMINISTRATOR CPT-30429 HGBA1C - LAB USE ONLY 11:14:20 SENIOR LINUX UNIX ADMINISTRATOR CPT-54649 CMP - LAB USE ONLY 11:14:19 SENIOR LINUX UNIX ADMINISTRATOR CPT-71296 CBC - LAB USE ONLY 11:14:19 SENIOR LINUX UNIX ADMINISTRATOR CPT-20158 Venipuncture Draw Fee 11:14:18 SENIOR LINUX UNIX ADMINISTRATOR CPT-47239 First Vx - Ix admin for Medicare patients 16:46:52 CDT CPT-60437 Fluzone Preservative Free Intramuscular Suspension 16:46 :51 CDT CPT-54539 CBC - LAB USE ONLY 17:14:46 CDT CPT-89576 HGBA1C - LAB USE ONLY 17:14:46 CDT CPT-80965 Venipuncture Draw Fee 17:14:46 CDT CPT-G0438 Initial Annual Wellness Exam 14:13:04 CDT CPT-44002 Breathing Tx 10:06:54 SENIOR [employer] UNIX ADMINISTRATOR CPT-23816 Postop F/U Visit 10:02:45 CDT CPT-LR Lesion Removal 09:02:56 CDT CPT-JTINJ Asp/Joint Injection 15:51:27 SENIOR [employer] UNIX ADMINISTRATOR CPT-OV Office Visit 15:52:02 SENIOR LINUX UNIX ADMINISTRATOR CPT-OV Office Visit 15:45:11 CDT CPT-000 Give Zostavax 14:09:06 CDT CPT-79070 Administration single or combination vaccine inc oral 15 :19:04 CDT CPT-34452 Zoster Vaccine (Zostavax) 15:19:04 CDT CPT-80082 Administration single or combination vaccine inc oral 20 :51:03 CDT CPT-04371 Influenza split virus > age 3 20:51:03 CDT CPT-82325 No Charge Offi Visit 14:52:03 CDT CPT-OV Office Visit 14:57:43 CDT CPT-OV Office Visit 15:22:32 CDT CPT-42675 Administration single or combination vaccine inc oral 11 :33:15 CDT CPT-88783 Influenza split virus > age 3 11:33:15 CDT
--- OUTSIDE RECORDS SUMMARY | 2018-04-25 14:15 | XMS REPORT | Clinical Summary ---
Author Author Admin, SACHI Clemons [facility] Address Unknown Phone Unavailable Allergies, Adverse Reactions, [...] twice daily until bottle empty FLUTICASONE PROPIONATE 84022120068 No Longer Active Tu Landeros MD Active COLACE 100 MG CAP 1 po BID PRN Constipation DOCUSATE SODIUM 25039157287 Active Tu Landeros MD Active SIMVASTATIN 40 MG TABS 0.5 tab daily at bedtime SIMVASTATIN 80157712318 Active Tu Landeros MD Active TRUERESULT BLOOD GLUCOSE W/DEVICE KIT test blood sugar twice daily dx 250.00 BLOOD GLUCOSE MONITORING SUPPL 92593188739 No Longer Active Tu Landeros MD Active TRUEDRAW LANCING DEVICE MISC Test twice a day dx 250.0 LANCET DEVICES 36394107925 No Longer Active Tu Landeros MD Active PREDNISONE 20 MG TAB 2 tablets once daily for 2 days, then 1 tablet once daily for 2 days PREDNISONE 58515746942 No Longer Active Tu Landeros MD Active DICLOFENAC SODIUM 50 MG TBEC 1 tablet by mouth three times a day as needed DICLOFENAC SODIUM 62820762679 No Longer Active Fab Morales DO Active METFORMIN HCL 850 MG TABS 1 tablet by mouth twice daily METFORMIN HCL 93120660560 Active Tu Landeros MD Active TRUEDRAW LANCING DEVICE MISC test blood sugar twice daily dx: 250.00 LANCET DEVICES 54907560329 Active Tu Landeros MD Active TRUETEST TEST INVITR STRP test blood sugar twice daily. DX 250.0 GLUCOSE BLOOD 60956954488 Active Tu Landeros MD Active EMBRACE BLOOD GLUCOSE TEST STRP test blood sugar twice daily DX 250.0 2014 GLUCOSE BLOOD 88413688900 No Longer Active Tu Landeros MD Active TRUETEST TEST STRP test blood sugar three times daily dx: 250.00 GLUCOSE BLOOD 02359019814 No Longer Active Suze VOGEL Active TRUERESULT BLOOD GLUCOSE W/DEVICE KIT use to test blood sugar tid dx: 250.00 BLOOD GLUCOSE MONITORING SUPPL 69231616594 No Longer Active Szue Nicole RMA Active ALIGN 4 MG CAPS 1 tid PROBIOTIC PRODUCT 59855813539 No Longer Active Shaun Sy MD Active CIPRO 500 MG TABS 1 bid x 14 days start 09-28-13 CIPROFLOXACIN HCL 75741840740 No Longer Active Shaun Sy MD Active TRAMADOL HCL 50 MG TABS 1-2 tablets every 6 hours as needed for pain TRAMADOL HCL 31484812532 Active Tu Landeros MD Active HYDROCODONE-ACETAMINOPHEN 5-325 MG TABS 1 tab by mouth every 6 hours as needed for pain HYDROCODONE-ACETAMINOPHEN 69707231034 No Longer Active Tu Landeros MD Active OMEPRAZOLE 20 MG CPDR 1 po q a.m. OMEPRAZOLE 03998420342 Active Tu Landeros MD Active GABAPENTIN 100 MG CAPS 1 po bid GABAPENTIN 35902675363 No Longer Active Tu Landeros MD Active B-12 100 MCG TABS Take one by mouth daily CYANOCOBALAMIN 02462101799 No Longer Active Tu Landeros MD Active GABAPENTIN 100 MG CAPS by mouth twice a day GABAPENTIN 91765829162 Active Tu Landeros MD Active BACTRIM DS 800-160 MG TABS 1 bid x 14 day start 09-28-13 SULFAMETHOXAZOLE-TRIMETHOPRIM 58761485379 No Longer Active Tu Landeros MD Active CARVEDILOL 12.5 MG TABS 1 po BID CARVEDILOL 11024733822 Active Tu Landeros MD Active SUPER B COMPLEX/VITAMIN C TABS 1 qd B COMPLEX-C 16185196804 Active JASPREET Perez Active TRILIPIX 135 MG CPDR 1 q hs CHOLINE FENOFIBRATE 90516825755 Active Tu Landeros MD Active FENOFIBRATE 145 MG TABS 1 po qd FENOFIBRATE 07594259477 No Longer Active JASPREET Perez Active OMEPRAZOLE 20 MG TBEC 1 PO 30 MIN BEFORE 1ST MEAL OMEPRAZOLE 30027013770 No Longer Active JASPREET Perez Active SIMVASTATIN 40 MG TABS Take one by mouth daily SIMVASTATIN 10958777809 No Longer Active Gustavo JASPREET Green Active VENLAFAXINE HCL 37.5 MG TABS 1 bid VENLAFAXINE HCL 73359668559 Active Tu Landeros MD Active VENLAFAXINE HCL 75 MG TABS 1 po BID VENLAFAXINE HCL 03767192231 No Longer Active JASPREET Perez Active CIPRO 500 MG TAB 1 tablet by mouth twice daily CIPROFLOXACIN HCL 16235707347 No Longer Active Tu Landeros MD Active VENLAFAXINE HCL 37.5 MG TABS 1 po BID VENLAFAXINE HCL 26405246546 No Longer Active Suzebianca NUNOA Active LAMISIL 250 MG TAB 1 po qd TERBINAFINE HCL 35406941157 No Longer Active Tu Landeros MD Active LORTAB 5 5-500 MG TABS 1/2 to 1 tablet by mouth every 4 hours as needed for pain HYDROCODONE-ACETAMINOPHEN 52196027477 No Longer Active Tu Landeros MD Active ENALAPRIL MALEATE 20 MG TABS 1.5 po qd ENALAPRIL MALEATE 81186375974 Active Tu Landeros MD Active HYDROCODONE-ACETAMINOPHEN 5-500 MG TABS take one po Q 4-6 hours prn HYDROCODONE-ACETAMINOPHEN 80997337523 No Longer Active Tu Landeros MD Active BACTRIM DS 800-160 MG TABS 1 po BID x 7 days SULFAMETHOXAZOLE-TRIMETHOPRIM 79898210499 No Longer Active Tu Landeros MD Active VENLAFAXINE HCL 75 MG TABS 1 po BID VENLAFAXINE HCL 89716747174 No Longer Active Elvira Cervantes MD PhD Active TRAMADOL HCL 50 MG TABS 1 tablets every 6 hours as needed for pain TRAMADOL HCL 38967178542 No Longer Active Tu Landeros MD Active ACCU-CHEK FASTCLIX LANCETS MISC Use to check bloodsugar three times daily as needed LANCETS 53850544575 No Longer Active Tu Landeros MD Active ACCU-CHEK KEYONA PLUS STRP Use for testing bloodsugars three times daily as needed GLUCOSE BLOOD 60971562297 No Longer Active Tu Landeros MD Active ACCU-CHEK KEYONA PLUS W/DEVICE KIT Use for testing bloodsugars three times daily as needed BLOOD GLUCOSE MONITORING SUPPL 11662826194 No Longer Active Tu Landeros MD Active SPIRONOLACTONE 25 MG TAB 0.5 tablet by mouth daily SPIRONOLACTONE 24600239288 No Longer Active Tu Landeros MD Active ALPRAZOLAM 0.5 MG TABS 1 tab every 6hrs as needed ALPRAZOLAM 88725484880 No Longer Active Tu Landeros MD Active AUGMENTIN 875-125 MG TAB 1 tab by mouth twice daily with food AMOXICILLIN-POT CLAVULANATE 98917197930 No Longer Active Tu Landeros MD Active PREDNISONE 20 MG TAB 2 tabs daily for 3 days, 1 tab daily for 3 days, 1/2 tab daily for 2 days PREDNISONE 44591088098 No Longer Active Tu Landeros MD Active XANAX 0.5 MG TABS 1 tablet every 6 hrs prn ALPRAZOLAM 78118434131 No Longer Active Tu Landeros MD Active PREDNISONE 20 MG TAB 2 tabs daily for 3 days, 1 tab daily for 3 days, 1/2 tab daily for 2 days PREDNISONE 38306153844 No Longer Active Tu Landeros MD Active TRIAMCINOLONE ACETONIDE 0.1 % OINT Apply to affected areas TID for up to 2 weeks TRIAMCINOLONE ACETONIDE 72782058844 No Longer Active Tu Landeros MD Active LORTAB 5 5-500 MG TABS 1/2 to 1 tablet by mouth every 4 hours as needed for pain HYDROCODONE-ACETAMINOPHEN 27497899385 No Longer Active Tu Landeros MD Active MULTIVITAMINS TABS Take one by mouth daily MULTIPLE VITAMIN 40415558315 No Longer Active Tu Landeros MD Active MELATONIN 5 MG TABS Take one by mouth daily MELATONIN 00207986570 No Longer Active Tu Landeros MD Active SOMA 350 MG TAB 1 po q 6 hours prn spasm CARISOPRODOL 70275854248 No Longer Active Tu Landeros MD Active MECLIZINE HCL 25 MG CHEW TAB 1 four times a day as needed for dizziness 08/05 MECLIZINE HCL 46048951539 No Longer Active Fab Morales DO Active ANGEL BREEZE 2 TEST DISK test tid prn GLUCOSE BLOOD 81275513990 No Longer Active Negra Scott RN Active REGLAN 10 MG TAB 1 po TID PRN Nausea METOCLOPRAMIDE HCL 56299313490 No Longer Active Tu Landeros MD Active METFORMIN HCL 500 MG TABS 1 PO BID METFORMIN HCL 18304483393 No Longer Active Tu Landeros MD Active AMBIEN 10 MG TAB 1 tab by mouth at bedtime as needed for sleep ZOLPIDEM TARTRATE 68921726228 No Longer Active Tu Landeros MD Active FLUOXETINE HCL 40 MG CAPS 1 po q day FLUOXETINE HCL 56236557791 No Longer Active Mayra Sycamore Active FISH OIL 1000 MG CAPS Take one by mouth daily OMEGA-3 FATTY ACIDS 08456323204 Active Tu Landeros MD Active GLUCOSAMINE 500 MG TABS Take 2 tab po qd GLUCOSAMINE 98832936164 Active Tu Landeros MD Active TRILIPIX 135 MG CPDR 1 po qd CHOLINE FENOFIBRATE 35602441305 No Longer Active Tu Landeros MD Active ASPIRIN 81 MG CHEW TAB 1 tablet by mouth daily ASPIRIN 06875617433 Active Tu Landeros MD Active FUROSEMIDE 40 MG TAB 1 tablet by mouth daily FUROSEMIDE 94778556530 Active Tu Landeros MD Active REQUIP 2 MG TABS Take one tablet at bedtime prn ROPINIROLE HCL 85385336586 Active Tu Landeros MD Active KLOR-CON 10 10 MEQ CR-TABS TAKE 2 TABS DAILY POTASSIUM CHLORIDE 24617382235 Active Tu Landeros MD Active AMBIEN 10 MG TAB 1 tab by mouth at bedtime as needed for sleep AMBIEN 10 MG TAB 176329 ZOLPIDEM TARTRATE Inactive METFORMIN HCL 500 MG TABS 1 PO BID METFORMIN HCL 500 MG TABS 675396 METFORMIN HCL Inactive REGLAN 10 MG TAB 1 po TID PRN Nausea REGLAN 10 MG TAB 061366 METOCLOPRAMIDE HCL Inactive MECLIZINE HCL 25 MG CHEW TAB 1 four times a day as needed for dizziness 08/05 MECLIZINE HCL 25 MG CHEW TAB 362123 MECLIZINE HCL Inactive SOMA 350 MG TAB 1 po q 6 hours prn spasm SOMA 350 MG TAB 717978 CARISOPRODOL Inactive MELATONIN 5 MG TABS Take one by mouth daily MELATONIN 5 MG TABS 191372 MELATONIN Inactive MULTIVITAMINS TABS Take one by mouth daily MULTIVITAMINS TABS MULTIPLE VITAMIN Inactive LORTAB 5 5-500 MG TABS 1/2 to 1 tablet by mouth every 4 hours as needed for pain LORTAB 5 5-500 MG TABS HYDROCODONE- ACETAMINOPHEN Inactive XANAX 0.5 MG TABS 1 tablet every 6 hrs prn XANAX 0.5 MG TABS 362193 ALPRAZOLAM Inactive AUGMENTIN 875-125 MG TAB 1 tab by mouth twice daily with food AUGMENTIN 875-125 MG TAB 866942 AMOXICILLIN-POT CLAVULANATE Inactive ALPRAZOLAM 0.5 MG TABS 1 tab every 6hrs as needed ALPRAZOLAM 0.5 MG TABS 920623 ALPRAZOLAM Inactive SPIRONOLACTONE 25 MG TAB 0.5 tablet by mouth daily SPIRONOLACTONE 25 MG TAB 491120 SPIRONOLACTONE Inactive ACCU-CHEK KEYONA PLUS W/DEVICE KIT Use for testing bloodsugars three times daily as needed ACCU-CHEK KEYONA PLUS W/DEVICE KIT BLOOD GLUCOSE MONITORING SUPPL Inactive ACCU-CHEK KEYONA PLUS STRP Use for testing bloodsugars three times daily as needed ACCU-CHEK KEYONA PLUS STRP GLUCOSE BLOOD Inactive ACCU-CHEK FASTCLIX LANCETS MISC Use to check bloodsugar three times daily as needed ACCU-CHEK FASTCLIX LANCETS MISC 07259608393 LANCETS Inactive TRAMADOL HCL 50 MG TABS 1 tablets every 6 hours as needed for pain TRAMADOL HCL 50 MG TABS 165693 TRAMADOL HCL Inactive VENLAFAXINE HCL 75 MG TABS 1 po BID VENLAFAXINE HCL 75 MG TABS 740550 VENLAFAXINE HCL Inactive HYDROCODONE-ACETAMINOPHEN 5-500 MG TABS take one po Q 4-6 hours prn HYDROCODONE-ACETAMINOPHEN 5-500 MG TABS HYDROCODONE- ACETAMINOPHEN Inactive LORTAB 5 5-500 MG TABS 1/2 to 1 tablet by mouth every 4 hours as needed for pain LORTAB 5 5-500 MG TABS HYDROCODONE- ACETAMINOPHEN Inactive LAMISIL 250 MG TAB 1 po qd LAMISIL 250 MG TAB 732823 TERBINAFINE HCL Inactive VENLAFAXINE HCL 37.5 MG TABS 1 po BID VENLAFAXINE HCL 37.5 MG TABS 872159 VENLAFAXINE HCL Inactive CIPRO 500 MG TAB 1 tablet by mouth twice daily CIPRO 500 MG TAB 937031 CIPROFLOXACIN HCL Inactive VENLAFAXINE HCL 75 MG TABS 1 po BID VENLAFAXINE HCL 75 MG TABS 924764 VENLAFAXINE HCL Inactive SIMVASTATIN 40 MG TABS Take one by mouth daily SIMVASTATIN 40 MG TABS 203894 SIMVASTATIN Inactive OMEPRAZOLE 20 MG TBEC 1 PO 30 MIN BEFORE 1ST MEAL OMEPRAZOLE 20 MG TBEC 503374 OMEPRAZOLE Inactive FENOFIBRATE 145 MG TABS 1 po qd FENOFIBRATE 145 MG TABS 987428 FENOFIBRATE Inactive BACTRIM DS 800-160 MG TABS 1 bid x 14 day start 09-28-13 BACTRIM DS 800-160 MG TABS 622946 SULFAMETHOXAZOLE-TRIMETHOPRIM Inactive B-12 100 MCG TABS Take one by mouth daily B-12 100 MCG TABS CYANOCOBALAMIN Inactive GABAPENTIN 100 MG CAPS 1 po bid GABAPENTIN 100 MG CAPS 960104 GABAPENTIN Inactive HYDROCODONE-ACETAMINOPHEN 5-325 MG TABS 1 tab by mouth every 6 hours as needed for pain HYDROCODONE-ACETAMINOPHEN 5-325 MG TABS 527154 HYDROCODONE-ACETAMINOPHEN Inactive CIPRO 500 MG TABS 1 bid x 14 days start 09-28-13 CIPRO 500 MG TABS 605182 CIPROFLOXACIN HCL Inactive ALIGN 4 MG CAPS [...] as needed DICLOFENAC SODIUM 50 MG TBEC 242238 DICLOFENAC SODIUM Inactive PREDNISONE 20 MG TAB 2 tablets once daily for 2 days, then 1 tablet once daily for 2 days PREDNISONE 20 MG TAB 905144 PREDNISONE Inactive TRUEDRAW LANCING DEVICE MISC Test [...] 2 weeks TRIAMCINOLONE ACETONIDE 0.1 % OINT 8390203 TRIAMCINOLONE ACETONIDE Inactive PREDNISONE 20 MG TAB 2 tabs daily for 3 days, 1 tab daily for 3 days, 1/2 tab daily for 2 days PREDNISONE 20 MG TAB 968935 PREDNISONE Inactive PREDNISONE 20 MG TAB 2 tabs daily for 3 days, 1 tab daily for 3 days, 1/2 tab daily for 2 days PREDNISONE 20 MG TAB 461453 PREDNISONE Inactive BACTRIM DS 800-160 MG TABS 1 po BID x 7 days BACTRIM DS 800-160 MG TABS 665930 SULFAMETHOXAZOLE-TRIMETHOPRIM Inactive Immunizations Vaccine Administration Date Value Standard Description Seasonal influenza vaccine, injectable, containing preservative, for > 3 years old (Afluria, FluLaval, Fluzone, Fluvirin, Fluarix, Agriflu(>=18 yo)) Fluzone (>3 yrs.) [[id number]] Influenza, seasonal, injectable influenza immunization (Flu Vax) has been administered 02/22/2012 influenza virus vaccine, unspecified formulation Seasonal influenza vaccine, injectable, containing preservative, for > 3 years old (Afluria, FluLaval, Fluzone, Fluvirin, Fluarix, Agriflu(>=18 yo)) Fluzone (>3 yrs.) [[id number]] Influenza, seasonal, injectable Vital Signs Date Name [...] mg/dL 7-18 creatinine, serum 1.10 mg/dL 0.60-1.30 carbon dioxide, venous blood 30.3 mmol/L 21.0-32.0 chloride, serum 105 mmol/L 98-107 potassium, serum 4.9 mmol/L 3.5-5.2 sodium, serum 143 mmol/L 115-659 1625/03/10 blood glucose 141 mg/dL 65-110 Lab Report: Basic Metabolic Panel, CBC - [...] MICROALBUMIN - Chemistry sodium, serum 142 mmol/L 510-233 1062/10/08 potassium, serum 4.5 mmol/L 3.5-5.2 chloride, serum [...] 0.30 mg/dL 0.00-1.00 cholesterol, serum 111 mg/dL 801-185 8939/07/28 triglyceride, serum, fasting 177 mg/dL 30-200 HDL [...] m[iU]/mL Encounters Code Encounter Date Provider Facility CPT-02365 Level 4 Est. Patient 13:50:18 SOLAR SALES REPRESENTATIVE AND ASSESSOR Tu Landeros MD [facility] CPT-60243 Level 3 Est. Patient 10:30:04 CDT Tu Landeros MD [facility] CPT-59489 Level 4 Est. Patient 11:03:38 CDT Tu Landeros MD [facility] CPT-83772 Level 3 Est. Patient 10:20:44 CDT Fab Morales DO [facility] CPT-35227 Level 4 Est. Patient 14:38:57 CDT Tu Landeros MD [facility] CPT-97484 Level 4 Est. Patient 14:27:39 SOLAR SALES REPRESENTATIVE AND ASSESSOR Tu Landeros MD [facility] CPT-36451 Level 4 Est. Patient 09:45:25 CDT Tu Landeros MD [facility] CPT-14353 Level 4 Est. Patient 09:05:20 SOLAR SALES REPRESENTATIVE AND ASSESSOR Tu Landeros MD [facility] CPT-15533 Level 4 Est. Patient 14:09:06 CDT Tu Landeros MD [facility] CPT-07985 Level 3 Est. Patient 13:36:54 CDT Tu Landeros MD [facility] CPT-55388 Level 3 Est. Patient 08:59:14 CDT Tu Landeros MD [facility] CPT-18892 Level 3 Est. Patient 13:48:35 CDT Fab Morales DO [facility] CPT-84458 Level 4 Est. Patient 10:05:48 CDT Tu Landeros MD [facility] CPT-54093 Level 3 Est. Patient 13:38:42 CDT Marek BANKS [facility] CPT-51782 Level 5 Est. Patient 08:08:39 CDT Jerrica FARNCIS [facility] CPT-99342 Level 4 Est. Patient 14:23:38 CDT Tu Landeros MD [facility] CPT-32392 Level 3 Est. Patient 11:44:04 CDT Tu Landeros MD [facility] CPT-59437 Level 3 Est. Patient 11:03:20 SOLAR SALES REPRESENTATIVE AND ASSESSOR Tu Landeros MD [facility] CPT-90907 Level 3 Est. Patient 11:03:14 SOLAR SALES REPRESENTATIVE AND ASSESSOR Tu Landeros MD [facility] CPT-83035 Level 3 Est. Patient 12:42:49 CDT Tu Landeros MD [facility] CPT-10233 Level 3 Est. Patient 11:52:06 CDT Tu Landeros MD [facility] CPT-14282 Level 3 Est. Patient 13:58:11 CDT Tu aLnderos MD [facility] CPT-12560 Level 3 Est. Patient 17:50:07 CDT Fab Morales DO [facility] CPT-23318 Level 3 Est. Patient 12:06:29 CDT Elvira Cervantes MD PhD [facility] CPT-96321 Level 3 Est. Patient 15:50:32 CDT Tu Landeros MD [facility] CPT-01061 Level 4 Est. Patient 16:08:29 CDT Tu Landeros MD [facility] CPT-07273 Level 3 Est. Patient 16:04:19 CDT Tu Landeros MD [facility] CPT-74659 Level 3 Est. Patient 11:22:30 SOLAR SALES REPRESENTATIVE AND ASSESSOR Tu Landeros MD [facility] CPT-00442 Level 4 Est. Patient 16:24:02 SOLAR SALES REPRESENTATIVE AND ASSESSOR Tu Landeros MD [facility] CPT-61517 Level 3 Est. Patient 17:21:23 SOLAR SALES REPRESENTATIVE AND ASSESSOR Tu Landeros MD [facility] Procedures Code Procedure Name Date Entry Date Standard Description CPT-15409 Postop F/U Visit 10:02:45 CDT CPT-LR Lesion Removal 09:02:56 CDT CPT-JTINJ Asp/Joint Injection 15:51:27 [employer]AR SALES REPRESENTATIVE AND ASSESSOR CPT-OV Office Visit 15:52:02 SOLAR SALES REPRESENTATIVE AND ASSESSOR CPT-OV Office Visit 15:45:11 CDT CPT-000 Give Zostavax 14:09:06 CDT CPT-70705 Administration single or combination vaccine inc oral 15 :19:04 CDT CPT-74667 Zoster Vaccine (Zostavax) 15:19:04 CDT CPT-81622 Administration single or combination vaccine inc oral 20 :51:03 CDT CPT-96774 Influenza split virus > age 3 20:51:03 CDT CPT-79774 No Charge Offi Visit 14:52:03 CDT CPT-OV Office Visit 14:57:43 CDT CPT-OV Office Visit 15:22:32 CDT CPT-14183 Administration single or combination vaccine inc oral 11 :33:15 CDT CPT-69526 Influenza split virus > age 3 11:33:15 CDT
--- OUTSIDE RECORDS SUMMARY | 2018-04-25 14:16 | XMS REPORT | Clinical Summary ---
Author Author Admin, SACHI Organization [employer] Address Unknown Phone Unavailable Allergies, Adverse [...] ORAL TABS 1 po BID VENLAFAXINE HCL 76209007158 Active Tu Landeros MD Active GLIMEPIRIDE 1 MG ORAL TABS 1 po qd GLIMEPIRIDE 35160793808 Active Tu Landeros MD Active TRUE METRIX BLOOD GLUCOSE TEST INVITR STRP Test blood sugar BID Dx: E11.9 GLUCOSE BLOOD 72222957850 Delores Landeros MD Active TRUE METRIX AIR GLUCOSE METER W/DEVICE KIT Test blood glucose BID Dx: E11.9 BLOOD GLUCOSE MONITORING SUPPL 98845983290 Active Tu Landeros MD Active TRUETEST TEST INVITR STRP test blood sugar twice daily. DX 250.0 GLUCOSE BLOOD 62309836815 No Longer Active Mirna Stanley LPN Active TRUEDRAW LANCING DEVICE MISC test blood sugar twice daily dx: 250.00 LANCET DEVICES 33757269420 No Longer Active Mirna Stanley LPN Active ENALAPRIL MALEATE 20 MG TABS 2 po qd ENALAPRIL MALEATE 82328112433 Active Tu Landeros MD Active SUPER B COMPLEX/VITAMIN C TABS 1 qd B COMPLEX-C 06396369418 No Longer Active Tu Landeros MD Active ASPIRIN EC 81 MG ORAL TBEC 1 po qd ASPIRIN 19593494310 Active Tu Landeros MD Active GLUCOSAMINE 500 MG TABS 2 po qd GLUCOSAMINE Active Tu Landeros MD Active SIMVASTATIN 40 MG TABS 0.5 po qHS SIMVASTATIN 50312421773 Active Tu Landeros MD Active FISH OIL 1000 MG CAPS 1 po qd OMEGA-3 FATTY ACIDS 89044755862 Active Tu Landeros MD Active METFORMIN HCL 1000 MG TABS 1 po BID METFORMIN HCL 72120441561 Active Tu Landeros MD Active KLOR-CON 10 10 MEQ CR-TABS 2 po qd POTASSIUM CHLORIDE 39836975398 Active Tu Landeros MD Active FUROSEMIDE 40 MG TAB 1 po qd FUROSEMIDE 31747285745 Active Tu Landeros MD Active REQUIP 2 MG ORAL TABS 1 po qHS PRN Restless legs ROPINIROLE HCL 11118264676 Active Tu Landeros MD Active GABAPENTIN 100 MG CAPS 1 po BID GABAPENTIN 87856299784 Active Tu Landeros MD Active REQUIP 2 MG TABS Take one tablet at bedtime prn ROPINIROLE HCL 37310898367 No Longer Active Tu Landeros MD Active VENTOLIN HFA 108 (90 BASE) MCG/ACT AERS 1-2 puffs every 4 hours if needed for cough/congestion ALBUTEROL SULFATE 87860554460 No Longer Active Ambika Aden APRN Active ZITHROMAX 250 MG TAB 2 po today, then 1 po q days 2-5 AZITHROMYCIN 37452269649 No Longer Active Miradna Suresh APRN Active FLONASE 50 MCG/ACT SUSP 1 spray each nostril twice daily until bottle empty FLUTICASONE PROPIONATE 48526393096 No Longer Active Tu Landeros MD Active COLACE 100 MG CAP 1 po BID PRN Constipation DOCUSATE SODIUM 56741195009 Active Tu Landeros MD Active TRUERESULT BLOOD GLUCOSE W/DEVICE KIT test blood sugar twice daily dx 250.00 BLOOD GLUCOSE MONITORING SUPPL 17597897593 No Longer Active Tu Landeros MD Active TRUEDRAW LANCING DEVICE MISC Test twice a day dx 250.0 LANCET DEVICES 54114073258 No Longer Active Tu Landeros MD Active PREDNISONE 20 MG TAB 2 tablets once daily for 2 days, then 1 tablet once daily for 2 days PREDNISONE 81379396636 No Longer Active Tu Landeros MD Active DICLOFENAC SODIUM 50 MG TBEC 1 tablet by mouth three times a day as needed DICLOFENAC SODIUM 84390632604 No Longer Active Fab Morales DO Active EMBRACE BLOOD GLUCOSE TEST STRP test blood sugar twice daily DX 250.0 2014 GLUCOSE BLOOD 99452090118 No Longer Active Tu Landeros MD Active TRUETEST TEST STRP test blood sugar three times daily dx: 250.00 GLUCOSE BLOOD 03501536861 No Longer Active Suze Corey VOGEL Active TRUERESULT BLOOD GLUCOSE W/DEVICE KIT use to test blood sugar tid dx: 250.00 BLOOD GLUCOSE MONITORING SUPPL 76018923541 No Longer Active Suze Corey RMA Active ALIGN 4 MG CAPS 1 tid PROBIOTIC PRODUCT 03289610844 No Longer Active Shaun Sy MD Active CIPRO 500 MG TABS 1 bid x 14 days start 09-28-13 CIPROFLOXACIN HCL 88994355032 No Longer Active Shaun Sy MD Active TRAMADOL HCL 50 MG TABS 1-2 tablets every 6 hours as needed for pain TRAMADOL HCL 15438277315 Active Lesli Kellogg APRN Active HYDROCODONE-ACETAMINOPHEN 5-325 MG TABS 1 tab by mouth every 6 hours as needed for pain HYDROCODONE-ACETAMINOPHEN 98591452434 No Longer Active Tu Landeros MD Active OMEPRAZOLE 20 MG CPDR 1 po q a.m. OMEPRAZOLE 92343719043 Active Lesli Kellogg APRN Active GABAPENTIN 100 MG CAPS 1 po bid GABAPENTIN 35232738290 No Longer Active Tu Landeros MD Active B-12 100 MCG TABS Take one by mouth daily CYANOCOBALAMIN 38155893777 No Longer Active Tu aLnderos MD Active BACTRIM DS 800-160 MG TABS 1 bid x 14 day start 09-28-13 SULFAMETHOXAZOLE-TRIMETHOPRIM 05958138684 No Longer Active Tu Landeros MD Active CARVEDILOL 12.5 MG TABS 1 po BID CARVEDILOL 37752783569 Active Tu Landeros MD Active TRILIPIX 135 MG CPDR 1 q hs CHOLINE FENOFIBRATE 02703600742 Active Tu Landeros MD Active FENOFIBRATE 145 MG TABS 1 po qd FENOFIBRATE 72019551829 No Longer Active JASPREET Perez Active OMEPRAZOLE 20 MG TBEC 1 PO 30 MIN BEFORE 1ST MEAL OMEPRAZOLE 50504256456 No Longer Active JASPREET Perez Active SIMVASTATIN 40 MG TABS Take one by mouth daily SIMVASTATIN 94354507603 No Longer Active JASPREET Perez Active VENLAFAXINE HCL 75 MG TABS 1 po BID VENLAFAXINE HCL 40910240702 No Longer Active Resaca Norma, RMA Active CIPRO 500 MG TAB 1 tablet by mouth twice daily CIPROFLOXACIN HCL 94590783461 No Longer Active Tu Landeros MD Active VENLAFAXINE HCL 37.5 MG TABS 1 po BID VENLAFAXINE HCL 51159440827 No Longer Active Suze Nicole RMA Active LAMISIL 250 MG TAB 1 po qd TERBINAFINE HCL 46727452255 No Longer Active Tu Landeros MD Active LORTAB 5 5-500 MG TABS 1/2 to 1 tablet by mouth every 4 hours as needed for pain HYDROCODONE-ACETAMINOPHEN 04120265011 No Longer Active Tu Landeros MD Active HYDROCODONE-ACETAMINOPHEN 5-500 MG TABS take one po Q 4-6 hours prn HYDROCODONE-ACETAMINOPHEN 06692932150 No Longer Active Tu Landeros MD Active BACTRIM DS 800-160 MG TABS 1 po BID x 7 days SULFAMETHOXAZOLE-TRIMETHOPRIM 92981990985 No Longer Active Tu Landeros MD Active VENLAFAXINE HCL 75 MG TABS 1 po BID VENLAFAXINE HCL 04721473851 No Longer Active Elvira Cervantes MD PhD Active TRAMADOL HCL 50 MG TABS 1 tablets every 6 hours as needed for pain TRAMADOL HCL 23656113797 No Longer Active Tu Landeros MD Active ACCU-CHEK FASTCLIX LANCETS MISC Use to check bloodsugar three times daily as needed LANCETS 34533250747 No Longer Active Tu Landeros MD Active ACCU-CHEK KEYONA PLUS STRP Use for testing bloodsugars three times daily as needed GLUCOSE BLOOD 85357735565 No Longer Active Tu Landeros MD Active ACCU-CHEK KEYONA PLUS W/DEVICE KIT Use for testing bloodsugars three times daily as needed BLOOD GLUCOSE MONITORING SUPPL 68931101818 No Longer Active Tu Landeros MD Active SPIRONOLACTONE 25 MG TAB 0.5 tablet by mouth daily SPIRONOLACTONE 92942773249 No Longer Active Tu Landeros MD Active ALPRAZOLAM 0.5 MG TABS 1 tab every 6hrs as needed ALPRAZOLAM 91357970212 No Longer Active Tu Landeros MD Active AUGMENTIN 875-125 MG TAB 1 tab by mouth twice daily with food AMOXICILLIN-POT CLAVULANATE 83264737273 No Longer Active Tu Landeros MD Active PREDNISONE 20 MG TAB 2 tabs daily for 3 days, 1 tab daily for 3 days, 1/2 tab daily for 2 days PREDNISONE 53041170979 No Longer Active Tu Landeros MD Active XANAX 0.5 MG TABS 1 tablet every 6 hrs prn ALPRAZOLAM 22073806649 No Longer Active Tu Landeros MD Active PREDNISONE 20 MG TAB 2 tabs daily for 3 days, 1 tab daily for 3 days, 1/2 tab daily for 2 days PREDNISONE 29041050007 No Longer Active Tu Landeros MD Active TRIAMCINOLONE ACETONIDE 0.1 % OINT Apply to affected areas TID for up to 2 weeks TRIAMCINOLONE ACETONIDE 08446171729 No Longer Active Tu Landeros MD Active LORTAB 5 5-500 MG TABS 1/2 to 1 tablet by mouth every 4 hours as needed for pain HYDROCODONE-ACETAMINOPHEN 51578537972 No Longer Active Tu Landeros MD Active MULTIVITAMINS TABS Take one by mouth daily MULTIPLE VITAMIN 00976283908 No Longer Active Tu Landeros MD Active MELATONIN 5 MG TABS Take one by mouth daily MELATONIN 19752184655 No Longer Active Tu Landeros MD Active SOMA 350 MG TAB 1 po q 6 hours prn spasm CARISOPRODOL 57975112011 No Longer Active Tu Landeros MD Active MECLIZINE HCL 25 MG CHEW TAB 1 four times a day as needed for dizziness 08/05 MECLIZINE HCL 28123703371 No Longer Active Fab Morales DO Active ANGEL NIKKOEZAdrianna 2 TEST DISK test tid prn GLUCOSE BLOOD 10254559792 No Longer Active Negra Tyler MICHAEL Active REGLAN 10 MG TAB 1 po TID PRN Nausea METOCLOPRAMIDE HCL 30761902416 No Longer Active Tu Landeros MD Active METFORMIN HCL 500 MG TABS 1 PO BID METFORMIN HCL 14006980233 No Longer Active Tu Landeros MD Active AMBIEN 10 MG TAB 1 tab by mouth at bedtime as needed for sleep ZOLPIDEM TARTRATE 46670287976 No Longer Active Tu Landeros MD Active FLUOXETINE HCL 40 MG CAPS 1 po q day FLUOXETINE HCL 95590973917 No Longer Active Mayra Hallowell Active TRILIPIX 135 MG CPDR 1 po qd CHOLINE FENOFIBRATE 33882450315 No Longer Active Tu Landeros MD Active AMBIEN 10 MG TAB 1 tab by mouth at bedtime as needed for sleep AMBIEN 10 MG TAB 414964 ZOLPIDEM TARTRATE Inactive METFORMIN HCL 500 MG TABS 1 PO BID METFORMIN HCL 500 MG TABS 939417 METFORMIN HCL Inactive REGLAN 10 MG TAB 1 po TID PRN Nausea REGLAN 10 MG TAB 021756 METOCLOPRAMIDE HCL Inactive MECLIZINE HCL 25 MG CHEW TAB 1 four times a day as needed for dizziness 08/05 MECLIZINE HCL 25 MG CHEW TAB 027486 MECLIZINE HCL Inactive SOMA 350 MG TAB 1 po q 6 hours prn spasm SOMA 350 MG TAB 182077 CARISOPRODOL Inactive MELATONIN 5 MG TABS Take one by mouth daily MELATONIN 5 MG TABS 903147 MELATONIN Inactive MULTIVITAMINS TABS Take one by mouth daily MULTIVITAMINS TABS MULTIPLE VITAMIN Inactive LORTAB 5 5-500 MG TABS 1/2 to 1 tablet by mouth every 4 hours as needed for pain LORTAB 5 5-500 MG TABS HYDROCODONE- ACETAMINOPHEN Inactive XANAX 0.5 MG TABS 1 tablet every 6 hrs prn XANAX 0.5 MG TABS 744041 ALPRAZOLAM Inactive AUGMENTIN 875-125 MG TAB 1 tab by mouth twice daily with food AUGMENTIN 875-125 MG TAB 115464 AMOXICILLIN-POT CLAVULANATE Inactive ALPRAZOLAM 0.5 MG TABS 1 tab every 6hrs as needed ALPRAZOLAM 0.5 MG TABS 663304 ALPRAZOLAM Inactive SPIRONOLACTONE 25 MG TAB 0.5 tablet by mouth daily SPIRONOLACTONE 25 MG TAB 248465 SPIRONOLACTONE Inactive ACCU-CHEK KEYONA PLUS W/DEVICE KIT Use for testing bloodsugars three times daily as needed ACCU-CHEK KEYONA PLUS W/DEVICE KIT BLOOD GLUCOSE MONITORING SUPPL Inactive ACCU-CHEK KEYONA PLUS STRP Use for testing bloodsugars three times daily as needed ACCU-CHEK KEYONA PLUS STRP GLUCOSE BLOOD Inactive ACCU-CHEK FASTCLIX LANCETS MISC Use to check bloodsugar three times daily as needed ACCU-CHEK FASTCLIX LANCETS MISC 67362636525 LANCETS Inactive TRAMADOL HCL 50 MG TABS 1 tablets every 6 hours as needed for pain TRAMADOL HCL 50 MG TABS 082135 TRAMADOL HCL Inactive VENLAFAXINE HCL 75 MG TABS 1 po BID VENLAFAXINE HCL 75 MG TABS 763695 VENLAFAXINE HCL Inactive HYDROCODONE-ACETAMINOPHEN 5-500 MG TABS take one po Q 4-6 hours prn HYDROCODONE-ACETAMINOPHEN 5-500 MG TABS HYDROCODONE- ACETAMINOPHEN Inactive LORTAB 5 5-500 MG TABS 1/2 to 1 tablet by mouth every 4 hours as needed for pain LORTAB 5 5-500 MG TABS HYDROCODONE- ACETAMINOPHEN Inactive LAMISIL 250 MG TAB 1 po qd LAMISIL 250 MG TAB 908208 TERBINAFINE HCL Inactive VENLAFAXINE HCL 37.5 MG TABS 1 po BID VENLAFAXINE HCL 37.5 MG TABS 696264 VENLAFAXINE HCL Inactive CIPRO 500 MG TAB 1 tablet by mouth twice daily CIPRO 500 MG TAB 190534 CIPROFLOXACIN HCL Inactive VENLAFAXINE HCL 75 MG TABS 1 po BID VENLAFAXINE HCL 75 MG TABS 705380 VENLAFAXINE HCL Inactive SIMVASTATIN 40 MG TABS Take one by mouth daily SIMVASTATIN 40 MG TABS 379267 SIMVASTATIN Inactive OMEPRAZOLE 20 MG TBEC 1 PO 30 MIN BEFORE 1ST MEAL OMEPRAZOLE 20 MG TBEC 126931 OMEPRAZOLE Inactive FENOFIBRATE 145 MG TABS 1 po qd FENOFIBRATE 145 MG TABS 438300 FENOFIBRATE Inactive BACTRIM DS 800-160 MG TABS 1 bid x 14 day start 09-28-13 BACTRIM DS 800-160 MG TABS 380555 SULFAMETHOXAZOLE-TRIMETHOPRIM Inactive B-12 100 MCG TABS Take one by mouth daily B-12 100 MCG TABS CYANOCOBALAMIN Inactive GABAPENTIN 100 MG CAPS 1 po bid GABAPENTIN 100 MG CAPS 528933 GABAPENTIN Inactive HYDROCODONE-ACETAMINOPHEN 5-325 MG TABS 1 tab by mouth every 6 hours as needed for pain HYDROCODONE-ACETAMINOPHEN 5-325 MG TABS 110222 HYDROCODONE-ACETAMINOPHEN Inactive CIPRO 500 MG TABS 1 bid x 14 days start 09-28-13 CIPRO 500 MG TABS 097735 CIPROFLOXACIN HCL Inactive ALIGN 4 MG CAPS [...] as needed DICLOFENAC SODIUM 50 MG TBEC 641615 DICLOFENAC SODIUM Inactive PREDNISONE 20 MG TAB 2 tablets once daily for 2 days, then 1 tablet once daily for 2 days PREDNISONE 20 MG TAB 024180 PREDNISONE Inactive TRUEDRAW LANCING DEVICE MISC Test twice a day dx 250.0 TRUEDRAW LANCING DEVICE MISC LANCET DEVICES Inactive TRUERESULT BLOOD GLUCOSE W/DEVICE KIT test blood sugar twice daily dx 250.00 TRUERESULT BLOOD GLUCOSE W/DEVICE KIT BLOOD GLUCOSE MONITORING SUPPL Inactive FLONASE 50 MCG/ACT SUSP 1 spray each nostril twice daily until bottle empty FLONASE 50 MCG/ACT SUSP 5934434 FLUTICASONE PROPIONATE Inactive VENTOLIN HFA 108 (90 BASE) MCG/ACT AERS 1-2 puffs every 4 hours if needed for cough/congestion VENTOLIN HFA 108 (90 BASE) MCG/ACT AERS ALBUTEROL SULFATE Inactive REQUIP 2 MG TABS Take one tablet at bedtime prn REQUIP 2 MG TABS 085654 ROPINIROLE HCL Inactive SUPER B COMPLEX/VITAMIN C TABS 1 qd SUPER B COMPLEX/ VITAMIN C TABS 52259426791 B COMPLEX-C Inactive TRUEDRAW LANCING DEVICE MISC test blood sugar twice daily dx: 250.00 TRUEDRAW LANCING DEVICE MISC LANCET DEVICES Inactive TRUETEST TEST INVITR STRP test blood sugar twice daily. DX 250.0 TRUETEST TEST INVITR STRP GLUCOSE BLOOD Inactive TRIAMCINOLONE ACETONIDE 0.1 % OINT Apply to affected areas TID for up to 2 weeks TRIAMCINOLONE ACETONIDE 0.1 % OINT 7156475 TRIAMCINOLONE ACETONIDE Inactive PREDNISONE 20 MG TAB 2 tabs daily for 3 days, 1 tab daily for 3 days, 1/2 tab daily for 2 days PREDNISONE 20 MG TAB 143203 PREDNISONE Inactive PREDNISONE 20 MG TAB 2 tabs daily for 3 days, 1 tab daily for 3 days, 1/2 tab daily for 2 days PREDNISONE 20 MG TAB 359996 PREDNISONE Inactive BACTRIM DS 800-160 MG TABS 1 po BID x 7 days BACTRIM DS 800-160 MG TABS 613984 SULFAMETHOXAZOLE-TRIMETHOPRIM Inactive ZITHROMAX 250 MG TAB 2 po today, then 1 po q days 2-5 ZITHROMAX 250 MG TAB 6697061 AZITHROMYCIN Inactive Advance Directives Directive Description Start Date DISCUSSED WITH PATIENT -- NO DECISION MADE Immunizations Vaccine Administration Date Value Standard Description Seasonal influenza vaccine, injectable, containing preservative, for > 3 years old (Afluria, FluLaval, Fluzone, Fluvirin, Fluarix, Agriflu(>=18 yo)) Fluzone (>3 yrs.) [VSC704] Influenza, seasonal, injectable influenza immunization (Flu Vax) has been administered 02/22/2012 influenza virus vaccine, unspecified formulation Seasonal influenza vaccine, injectable, containing preservative, for > 3 years old (Afluria, FluLaval, Fluzone, Fluvirin, Fluarix, Agriflu(>=18 yo)) Fluzone (>3 yrs.) [PQU898] Influenza, seasonal, injectable Vital Signs Date Name [...] Magnesium - Chemistry sodium, serum 143 mmol/L 589-218 7068/01/10 carbon dioxide, venous blood 28.0 mmol/L 21.0-32.0 potassium, serum 4.5 mmol/L 3.5-5.2 chloride, serum 104 mmol/L 98-107 blood glucose 158 mg/dL 65-110 urea nitrogen, blood 23 mg/dL 7-18 creatinine, serum 1.06 mg/dL 0.55-1.30 alanine aminotransferase (SGPT), serum 42 U/L 12-78 aspartate aminotransferase (SGOT), serum 32 U/L 15-37 calcium, serum 9.3 mg/dL 8.5-10.1 bilirubin, serum, total 0.20 mg/dL 0.00-1.00 cholesterol, serum 177 mg/dL 824-353 6799/01/10 triglyceride, serum, fasting 320 mg/dL 30-200 HDL cholesterol, serum 46 mg/dL 32-96 LDL cholesterol, serum 67 mg/dL 0-130 Lab Report: COMPREHENSIVE METABOLIC PANEL, LIPID PANEL, HEMOGLOBIN A1c - Chemistry cholesterol, serum 135 mg/dL 073-650 6081/05/17 HDL cholesterol, serum 41 mg/dL > OR=46 triglyceride, serum, fasting 206 mg/dL <150 LDL cholesterol, serum 53 MG/DL (CALC) mg/dL <130 cholesterol/HDL ratio, serum 3.3 (calc) < OR=5.0 Lab Report: HGBA1C - Chemistry hemoglobin A1C, blood, as % of total hemoglobin 7.4 % 4.3-6.0 sodium, serum 140 mmol/L 507-536 0603/09/07 potassium, serum 4.3 mmol/L 3.5-5.2 chloride, serum [...] <30 Encounters Code Encounter Date Provider Facility CPT-21987 Level 4 Est. Patient 14:29:21 CDT Tu Landeros MD [facility] CPT-65257 Level 4 Est. Patient 09:08:17 COMPOUND COATING MACHINE OFFBEARER Tu Landeros MD [facility] CPT-87925 Level 4 Est. Patient 14:40:19 CDT Tu Landeros MD [facility] CPT-98683 Level 4 Est. Patient 14:06:04 COMPOUND COATING MACHINE OFFBEARER Tu Landeros MD [facility] CPT-72707 Level 3 Est. Patient 14:05:18 COMPOUND COATING MACHINE OFFBEARER Tu Landeros MD [facility] CPT-44572 Level 3 Est. Patient 10:06:54 COMPOUND COATING MACHINE OFFBEARER Mirandawinston Suresh APRN [facility] CPT-31285 Level 4 Est. Patient 13:50:18 COMPOUND COATING MACHINE OFFBEARER Tu Landeros MD [facility] CPT-62615 Level 3 Est. Patient 10:30:04 CDT Tu Landeros MD [facility] CPT-05123 Level 4 Est. Patient 11:03:38 CDT Tu Landeors MD [facility] CPT-36585 Level 3 Est. Patient 10:20:44 CDT Fab Morales DO [facility] CPT-52678 Level 4 Est. Patient 14:38:57 CDT Tu Landeros MD [facility] CPT-26677 Level 4 Est. Patient 14:27:39 COMPOUND COATING MACHINE OFFBEARER Tu Landeros MD [facility] CPT-80463 Level 4 Est. Patient 09:45:25 CDT Tu Landeros MD [facility] CPT-94196 Level 4 Est. Patient 09:05:20 COMPOUND COATING MACHINE OFFBEARER Tu Landeros MD [facility] CPT-86233 Level 4 Est. Patient 14:09:06 CDT Tu Landeros MD [facility] CPT-58772 Level 3 Est. Patient 13:36:54 CDT Tu Landeros MD [facility] CPT-17974 Level 3 Est. Patient 08:59:14 CDT Tu Landeros MD [facility] CPT-49441 Level 3 Est. Patient 13:48:35 CDT Fab Morales DO [facility] CPT-27645 Level 4 Est. Patient 10:05:48 CDT Tu Landeros MD [facility] CPT-13094 Level 3 Est. Patient 13:38:42 CDT Marek BANKS [facility] CPT-30018 Level 5 Est. Patient 08:08:39 CDT Piyushrichajanelle Dawsontay FRANCIS [facility] CPT-62220 Level 4 Est. Patient 14:23:38 CDT Tu Landeros MD [facility] CPT-41729 Level 3 Est. Patient 11:44:04 CDT Tu Landeros MD [facility] CPT-99834 Level 3 Est. Patient 11:03:20 COMPOUND COATING MACHINE OFFBEARER Tu Landeros MD [facility] CPT-59281 Level 3 Est. Patient 11:03:14 COMPOUND COATING MACHINE OFFBEARER Tu Ladneros MD [facility] CPT-10749 Level 3 Est. Patient 12:42:49 CDT Tu Landeros MD [facility] CPT-58144 Level 3 Est. Patient 11:52:06 CDT Tu Landeros MD [facility] CPT-25266 Level 3 Est. Patient 13:58:11 CDT Tu Landeros MD [facility] CPT-77934 Level 3 Est. Patient 17:50:07 CDT Fab Morales DO [facility] CPT-94481 Level 3 Est. Patient 12:06:29 CDT Elvira Cervantes MD PhD [facility] CPT-14665 Level 3 Est. Patient 15:50:32 CDT Tu Landeros MD [facility] CPT-52422 Level 4 Est. Patient 16:08:29 CDT Tu Landeros MD [facility] CPT-63053 Level 3 Est. Patient 16:04:19 CDT Tu Landeros MD [facility] CPT-38555 Level 3 Est. Patient 11:22:30 COMPOUND COATING MACHINE OFFBEARER Tu Landeros MD [facility] CPT-50488 Level 4 Est. Patient 16:24:02 COMPOUND COATING MACHINE OFFBEARER Tu Landeros MD [facility] CPT-66925 Level 3 Est. Patient 17:21:23 COMPOUND COATING MACHINE OFFBEARER Tu Landeros MD [facility] Procedures Code Procedure Name Date Entry Date Standard Description CPT-G0009 Administration of Pneumococcal Vaccine 15:08:26 CDT CPT-64820 Prevnar 13 Intramuscular Suspension 15:08:26 CDT 10/08 CPT-G0439 [facility] Annual Wellness Exam 14:29:22 CDT CPT-00112 Venipuncture Draw Fee 13:15:35 CDT CPT-61669 Magnesium - LAB USE ONLY 11:14:20 COMPOUND COATING MACHINE OFFBEARER CPT-26685 Lipid - LAB USE ONLY 11:14:20 COMPOUND COATING MACHINE OFFBEARER CPT-37204 HGBA1C - LAB USE ONLY 11:14:20 COMPOUND COATING MACHINE OFFBEARER CPT-25255 CMP - LAB USE ONLY 11:14:19 COMPOUND COATING MACHINE OFFBEARER CPT-51511 CBC - LAB USE ONLY 11:14:19 COMPOUND COATING MACHINE OFFBEARER CPT-94114 Venipuncture Draw Fee 11:14:18 COMPOUND COATING MACHINE OFFBEARER CPT-80980 First Vx - Ix admin for Medicare patients 16:46:52 CDT CPT-21627 Fluzone Preservative Free Intramuscular Suspension 16:46 :51 CDT CPT-63116 CBC - LAB USE ONLY 17:14:46 CDT CPT-56312 HGBA1C - LAB USE ONLY 17:14:46 CDT CPT-86505 Venipuncture Draw Fee 17:14:46 CDT CPT-G0438 Initial Annual Wellness Exam 14:13:04 CDT CPT-37154 Breathing Tx 10:06:54 COMPOUND COATING MACHINE OFFBEARER CPT-37758 Postop F/U Visit 10:02:45 CDT CPT-LR Lesion Removal 09:02:56 CDT CPT-JTINJ Asp/Joint Injection 15:51:27 COMPOUND COATING MACHINE OFFBEARER CPT-OV Office Visit 15:52:02 COMPOUND COATING MACHINE OFFBEARER CPT-OV Office Visit 15:45:11 CDT CPT-000 Give Zostavax 14:09:06 CDT CPT-36106 Administration single or combination vaccine inc oral 15 :19:04 CDT CPT-86993 Zoster Vaccine (Zostavax) 15:19:04 CDT CPT-25673 Administration single or combination vaccine inc oral 20 :51:03 CDT CPT-02070 Influenza split virus > age 3 20:51:03 CDT CPT-79649 No Charge Offi Visit 14:52:03 CDT CPT-OV Office Visit 14:57:43 CDT CPT-OV Office Visit 15:22:32 CDT CPT-02498 Administration single or combination vaccine inc oral 11 :33:15 CDT CPT-27658 Influenza split virus > age 3 11:33:15 CDT
--- OUTSIDE RECORDS SUMMARY | 2018-04-25 14:17 | XMS REPORT | Clinical Summary ---
Author Author Admin, SACHI Organization [facility] Address Unknown Phone Unavailable Allergies, Adverse Reactions, [...] joint involving shoulder region PARESTHESIA 782.0 Resolved uT Landeros MD Disturbance of skin sensation RASH [...] blood sugar BID Dx: E11.9 GLUCOSE BLOOD 49678997884 Active Tu Landeros MD Active TRUE METRIX AIR GLUCOSE METER W/DEVICE KIT Test blood glucose BID Dx: E11.9 BLOOD GLUCOSE MONITORING SUPPL 91392244467 Active Tu Landeros MD Active TRUETEST TEST INVITR STRP test blood sugar twice daily. DX 250.0 GLUCOSE BLOOD 73020502290 No Longer Active Mirna Stanley LPN Active TRUEDRAW LANCING DEVICE MISC test blood sugar twice daily dx: 250.00 LANCET DEVICES 67180861329 No Longer Active Mirna Stanley LPN Active ENALAPRIL MALEATE 20 MG TABS 2 po qd ENALAPRIL MALEATE 56403370369 Active Tu Landeros MD Active SUPER B COMPLEX/VITAMIN C TABS 1 qd B COMPLEX-C 71291407719 No Longer Active Tu Landeros MD Active ASPIRIN EC 81 MG ORAL TBEC 1 po qd ASPIRIN 87077106336 Active Tu Landeros MD Active GLUCOSAMINE 500 MG TABS 2 po qd GLUCOSAMINE Active Tu Landeros MD Active SIMVASTATIN 40 MG TABS 0.5 po qHS SIMVASTATIN 49293535880 Active Tu Landeros MD Active FISH OIL 1000 MG CAPS 1 po qd OMEGA-3 FATTY ACIDS 14547631713 Active Tu Landeros MD Active METFORMIN HCL 1000 MG TABS 1 po BID METFORMIN HCL 59603829893 Active Tu Landeros MD Active KLOR-CON 10 10 MEQ CR-TABS 2 po qd POTASSIUM CHLORIDE 86413005932 Active Tu Landeros MD Active FUROSEMIDE 40 MG TAB 1 po qd FUROSEMIDE 98448193365 Active Tu Landeros MD Active REQUIP 2 MG ORAL TABS 1 po qHS PRN Restless legs ROPINIROLE HCL 98795918699 Active Tu Landeros MD Active VENLAFAXINE HCL 37.5 MG TABS 1 po BID VENLAFAXINE HCL 32930224004 Active Tu Landeros MD Active GABAPENTIN 100 MG CAPS 1 po BID GABAPENTIN 71623715903 Active José Luis Becerra MD Active REQUIP 2 MG TABS Take one tablet at bedtime prn ROPINIROLE HCL 73745360007 No Longer Active Tu Landeros MD Active VENTOLIN HFA 108 (90 BASE) MCG/ACT AERS 1-2 puffs every 4 hours if needed for cough/congestion ALBUTEROL SULFATE 10276711200 No Longer Active Ambika Aden APRN Active ZITHROMAX 250 MG TAB 2 po today, then 1 po q days 2-5 AZITHROMYCIN 75173756881 No Longer Active Miranda Suresh APRN Active FLONASE 50 MCG/ACT SUSP 1 spray each nostril twice daily until bottle empty FLUTICASONE PROPIONATE 93710784552 No Longer Active Tu Landeros MD Active COLACE 100 MG CAP 1 po BID PRN Constipation DOCUSATE SODIUM 06068044035 Active Tu Landeros MD Active TRUERESULT BLOOD GLUCOSE W/DEVICE KIT test blood sugar twice daily dx 250.00 BLOOD GLUCOSE MONITORING SUPPL 83017098707 No Longer Active Tu Landeros MD Active TRUEDRAW LANCING DEVICE MISC Test twice a day dx 250.0 LANCET DEVICES 07046857706 No Longer Active Tu Landeros MD Active PREDNISONE 20 MG TAB 2 tablets once daily for 2 days, then 1 tablet once daily for 2 days PREDNISONE 16990188801 No Longer Active Tu Landeros MD Active DICLOFENAC SODIUM 50 MG TBEC 1 tablet by mouth three times a day as needed DICLOFENAC SODIUM 49112469200 No Longer Active Fab Morales DO Active EMBRACE BLOOD GLUCOSE TEST STRP test blood sugar twice daily DX 250.0 2014 GLUCOSE BLOOD 11355186390 No Longer Active Tu Landeros MD Active TRUETEST TEST STRP test blood sugar three times daily dx: 250.00 GLUCOSE BLOOD 29239779883 No Longer Active Suzebianca VOGEL Active TRUERESULT BLOOD GLUCOSE W/DEVICE KIT use to test blood sugar tid dx: 250.00 BLOOD GLUCOSE MONITORING SUPPL 17232768130 No Longer Active Suze VOGEL Active ALIGN 4 MG CAPS 1 tid PROBIOTIC PRODUCT 43685017877 No Longer Active Shaun Sy MD Active CIPRO 500 MG TABS 1 bid x 14 days start 09-28-13 CIPROFLOXACIN HCL 69711583843 No Longer Active Shaun Sy MD Active TRAMADOL HCL 50 MG TABS 1-2 tablets every 6 hours as needed for pain TRAMADOL HCL 11068694351 Active Tu Landeros MD Active HYDROCODONE-ACETAMINOPHEN 5-325 MG TABS 1 tab by mouth every 6 hours as needed for pain HYDROCODONE-ACETAMINOPHEN 05978388371 No Longer Active Tu Landeros MD Active OMEPRAZOLE 20 MG CPDR 1 po q a.m. OMEPRAZOLE 42694823366 Active Tu Landeros MD Active GABAPENTIN 100 MG CAPS 1 po bid GABAPENTIN 39741517177 No Longer Active Tu Landeros MD Active B-12 100 MCG TABS Take one by mouth daily CYANOCOBALAMIN 81059863109 No Longer Active Tu Landeros MD Active BACTRIM DS 800-160 MG TABS 1 bid x 14 day start 09-28-13 SULFAMETHOXAZOLE-TRIMETHOPRIM 00302057918 No Longer Active Tu Landeros MD Active CARVEDILOL 12.5 MG TABS 1 po BID CARVEDILOL 53790552011 Active Tu Landeros MD Active TRILIPIX 135 MG CPDR 1 q hs CHOLINE FENOFIBRATE 89390315056 Active Tu Landeros MD Active FENOFIBRATE 145 MG TABS 1 po qd FENOFIBRATE 27691006075 No Longer Active JASPREET Perez Active OMEPRAZOLE 20 MG TBEC 1 PO 30 MIN BEFORE 1ST MEAL OMEPRAZOLE 28027745958 No Longer Active JASPREET Perez Active SIMVASTATIN 40 MG TABS Take one by mouth daily SIMVASTATIN 60812694863 No Longer Active JASPREET Perez Active VENLAFAXINE HCL 75 MG TABS 1 po BID VENLAFAXINE HCL 01489463231 No Longer Active JASPREET Perez Active CIPRO 500 MG TAB 1 tablet by mouth twice daily CIPROFLOXACIN HCL 08548443895 No Longer Active Tu Landeros MD Active VENLAFAXINE HCL 37.5 MG TABS 1 po BID VENLAFAXINE HCL 44806985363 No Longer Active Suzebianca NUNOA Active LAMISIL 250 MG TAB 1 po qd TERBINAFINE HCL 87583246676 No Longer Active Tu Landeros MD Active LORTAB 5 5-500 MG TABS 1/2 to 1 tablet by mouth every 4 hours as needed for pain HYDROCODONE-ACETAMINOPHEN 52074548906 No Longer Active Tu Landeros MD Active HYDROCODONE-ACETAMINOPHEN 5-500 MG TABS take one po Q 4-6 hours prn HYDROCODONE-ACETAMINOPHEN 46807346397 No Longer Active Tu Landeros MD Active BACTRIM DS 800-160 MG TABS 1 po BID x 7 days SULFAMETHOXAZOLE-TRIMETHOPRIM 38511706459 No Longer Active Tu Landeros MD Active VENLAFAXINE HCL 75 MG TABS 1 po BID VENLAFAXINE HCL 05558761908 No Longer Active Elvira Cervantes MD PhD Active TRAMADOL HCL 50 MG TABS 1 tablets every 6 hours as needed for pain TRAMADOL HCL 77616740655 No Longer Active Tu Landeros MD Active ACCU-CHEK FASTCLIX LANCETS MISC Use to check bloodsugar three times daily as needed LANCETS 22375105598 No Longer Active Tu Landeros MD Active ACCU-CHEK KEYONA PLUS STRP Use for testing bloodsugars three times daily as needed GLUCOSE BLOOD 66670288359 No Longer Active Tu Landeros MD Active ACCU-CHEK KEYONA PLUS W/DEVICE KIT Use for testing bloodsugars three times daily as needed BLOOD GLUCOSE MONITORING SUPPL 92316958359 No Longer Active Tu Landeros MD Active SPIRONOLACTONE 25 MG TAB 0.5 tablet by mouth daily SPIRONOLACTONE 63489278539 No Longer Active Tu Landeros MD Active ALPRAZOLAM 0.5 MG TABS 1 tab every 6hrs as needed ALPRAZOLAM 11058043501 No Longer Active Tu Landeros MD Active AUGMENTIN 875-125 MG TAB 1 tab by mouth twice daily with food AMOXICILLIN-POT CLAVULANATE 76043051947 No Longer Active Tu Landeros MD Active PREDNISONE 20 MG TAB 2 tabs daily for 3 days, 1 tab daily for 3 days, 1/2 tab daily for 2 days PREDNISONE 80589975371 No Longer Active Tu Landeros MD Active XANAX 0.5 MG TABS 1 tablet every 6 hrs prn ALPRAZOLAM 60797897671 No Longer Active Tu Landeros MD Active PREDNISONE 20 MG TAB 2 tabs daily for 3 days, 1 tab daily for 3 days, 1/2 tab daily for 2 days PREDNISONE 49154753854 No Longer Active Tu Landeros MD Active TRIAMCINOLONE ACETONIDE 0.1 % OINT Apply to affected areas TID for up to 2 weeks TRIAMCINOLONE ACETONIDE 01349579445 No Longer Active Tu Landeros MD Active LORTAB 5 5-500 MG TABS 1/2 to 1 tablet by mouth every 4 hours as needed for pain HYDROCODONE-ACETAMINOPHEN 30618798081 No Longer Active Tu Landeros MD Active MULTIVITAMINS TABS Take one by mouth daily MULTIPLE VITAMIN 04648573332 No Longer Active Tu Landeros MD Active MELATONIN 5 MG TABS Take one by mouth daily MELATONIN 28717949979 No Longer Active Tu Landeros MD Active SOMA 350 MG TAB 1 po q 6 hours prn spasm CARISOPRODOL 70577890669 No Longer Active Tu Landeros MD Active MECLIZINE HCL 25 MG CHEW TAB 1 four times a day as needed for dizziness 08/05 MECLIZINE HCL 88747989544 No Longer Active Fab Morales DO Active ANGEL BREEZE 2 TEST DISK test tid prn GLUCOSE BLOOD 26328414331 No Longer Active Negra Scott RN Active REGLAN 10 MG TAB 1 po TID PRN Nausea METOCLOPRAMIDE HCL 47355302306 No Longer Active Tu Landeros MD Active METFORMIN HCL 500 MG TABS 1 PO BID METFORMIN HCL 55477286778 No Longer Active Tu Landeros MD Active AMBIEN 10 MG TAB 1 tab by mouth at bedtime as needed for sleep ZOLPIDEM TARTRATE 41100647930 No Longer Active Tu Landeros MD Active FLUOXETINE HCL 40 MG CAPS 1 po q day FLUOXETINE HCL 16076391377 No Longer Active Mayra Terry Active TRILIPIX 135 MG CPDR 1 po qd CHOLINE FENOFIBRATE 00668210635 No Longer Active Tu Landeros MD Active ALPRAZOLAM 0.5 MG TABS 1 tab every 6hrs as needed ALPRAZOLAM 0.5 MG TABS 914982 ALPRAZOLAM Inactive AMBIEN 10 MG TAB 1 tab by mouth at bedtime as needed for sleep AMBIEN 10 MG TAB 155860 ZOLPIDEM TARTRATE Inactive BACTRIM DS 800-160 MG TABS 1 po BID x 7 days BACTRIM DS 800-160 MG TABS 237562 SULFAMETHOXAZOLE-TRIMETHOPRIM Inactive BACTRIM DS 800-160 MG TABS 1 bid x 14 day start 09-28-13 BACTRIM DS 800-160 MG TABS 268966 SULFAMETHOXAZOLE-TRIMETHOPRIM Inactive CIPRO 500 MG TABS 1 bid x 14 days start 09-28-13 CIPRO 500 MG TABS 976739 CIPROFLOXACIN HCL Inactive CIPRO 500 MG TAB 1 tablet by mouth twice daily CIPRO 500 MG TAB 671224 CIPROFLOXACIN HCL Inactive MECLIZINE HCL 25 MG CHEW TAB 1 four times a day as needed for dizziness 08/05 MECLIZINE HCL 25 MG CHEW TAB 916718 MECLIZINE HCL Inactive MULTIVITAMINS TABS Take one by mouth daily MULTIVITAMINS TABS MULTIPLE VITAMIN Inactive PREDNISONE 20 MG TAB 2 tabs daily for 3 days, 1 tab daily for 3 days, 1/2 tab daily for 2 days PREDNISONE 20 MG TAB 091144 PREDNISONE Inactive PREDNISONE 20 MG TAB 2 tabs daily for 3 days, 1 tab daily for 3 days, 1/2 tab daily for 2 days PREDNISONE 20 MG TAB 310708 PREDNISONE Inactive PREDNISONE 20 MG TAB 2 tablets once daily for 2 days, then 1 tablet once daily for 2 days PREDNISONE 20 MG TAB 361480 PREDNISONE Inactive REGLAN 10 MG TAB 1 po TID PRN Nausea REGLAN 10 MG TAB 949665 METOCLOPRAMIDE HCL Inactive SOMA 350 MG TAB 1 po q 6 hours prn spasm SOMA 350 MG TAB 152963 CARISOPRODOL Inactive SPIRONOLACTONE 25 MG TAB 0.5 tablet by mouth daily SPIRONOLACTONE 25 MG TAB 998783 SPIRONOLACTONE Inactive TRIAMCINOLONE ACETONIDE 0.1 % OINT Apply to affected areas TID for up to 2 weeks TRIAMCINOLONE ACETONIDE 0.1 % OINT 0976777 TRIAMCINOLONE ACETONIDE Inactive XANAX 0.5 MG TABS 1 tablet every 6 hrs prn XANAX 0.5 MG TABS 349633 ALPRAZOLAM Inactive METFORMIN HCL 500 MG TABS 1 PO BID METFORMIN HCL 500 MG TABS 087105 METFORMIN HCL Inactive SIMVASTATIN 40 MG TABS Take one by mouth daily SIMVASTATIN 40 MG TABS 233204 SIMVASTATIN Inactive VENLAFAXINE HCL 75 MG TABS 1 po BID VENLAFAXINE HCL 75 MG TABS 776950 VENLAFAXINE HCL Inactive VENLAFAXINE HCL 75 MG TABS 1 po BID VENLAFAXINE HCL 75 MG TABS 337036 VENLAFAXINE HCL Inactive VENLAFAXINE HCL 37.5 MG TABS 1 po BID VENLAFAXINE HCL 37.5 MG TABS 842280 VENLAFAXINE HCL Inactive LORTAB 5 5-500 MG [...] for pain TRAMADOL HCL 50 MG TABS 429085 TRAMADOL HCL Inactive HYDROCODONE-ACETAMINOPHEN 5-500 MG TABS take one po Q 4-6 hours prn HYDROCODONE-ACETAMINOPHEN 5-500 MG TABS HYDROCODONE- ACETAMINOPHEN Inactive DICLOFENAC SODIUM 50 MG TBEC 1 tablet by mouth three times a day as needed DICLOFENAC SODIUM 50 MG TBEC 288302 DICLOFENAC SODIUM Inactive AUGMENTIN 875-125 MG TAB 1 tab by mouth twice daily with food AUGMENTIN 875-125 MG TAB 491839 AMOXICILLIN-POT CLAVULANATE Inactive LAMISIL 250 MG TAB 1 po qd LAMISIL 250 MG TAB 381906 TERBINAFINE HCL Inactive MELATONIN 5 MG TABS Take one by mouth daily MELATONIN 5 MG TABS 581179 MELATONIN Inactive GABAPENTIN 100 MG CAPS 1 po bid GABAPENTIN 100 MG CAPS 723929 GABAPENTIN Inactive ZITHROMAX 250 MG TAB 2 po today, then 1 po q days 2-5 ZITHROMAX 250 MG TAB 9855731 AZITHROMYCIN Inactive SUPER B COMPLEX/VITAMIN C TABS 1 qd SUPER B COMPLEX/ VITAMIN C TABS 95872451070 B COMPLEX-C Inactive REQUIP 2 MG TABS Take one tablet at bedtime prn REQUIP 2 MG TABS 263105 ROPINIROLE HCL Inactive FLONASE 50 MCG/ACT SUSP [...] needed for pain HYDROCODONE-ACETAMINOPHEN 5-325 MG TABS 787069 HYDROCODONE-ACETAMINOPHEN Inactive FENOFIBRATE 145 MG TABS 1 po qd FENOFIBRATE 145 MG TABS 966475 FENOFIBRATE Inactive OMEPRAZOLE 20 MG TBEC 1 PO 30 MIN BEFORE 1ST MEAL OMEPRAZOLE 20 MG TBEC 595292 OMEPRAZOLE Inactive TRUERESULT BLOOD GLUCOSE W/DEVICE KIT [...] daily as needed ACCU-CHEK FASTCLIX LANCETS MISC 02654149682 LANCETS Inactive ACCU-CHEK KEYONA PLUS STRP Use [...] Fluvirin, Fluarix, Agriflu(>=18 yo)) Fluzone (>3 yrs.) [HUL025] Influenza, seasonal, injectable influenza immunization (Flu Vax) has been administered 02/22/2012 influenza virus vaccine, unspecified formulation Seasonal influenza vaccine, injectable, containing preservative, for > 3 years old (Afluria, FluLaval, Fluzone, Fluvirin, Fluarix, Agriflu(>=18 yo)) Fluzone (>3 yrs.) [[id number]] Influenza, seasonal, injectable Vital Signs Date Name [...] Magnesium - Chemistry sodium, serum 143 mmol/L 178-601 5013/01/10 carbon dioxide, venous blood 28.0 mmol/L 21.0-32.0 potassium, serum 4.5 mmol/L 3.5-5.2 chloride, serum 104 mmol/L 98-107 blood glucose 158 mg/dL 65-110 urea nitrogen, blood 23 mg/dL 7-18 creatinine, serum 1.06 mg/dL 0.55-1.30 alanine aminotransferase (SGPT), serum 42 U/L 12-78 aspartate aminotransferase (SGOT), serum 32 U/L 15-37 calcium, serum 9.3 mg/dL 8.5-10.1 bilirubin, serum, total 0.20 mg/dL 0.00-1.00 cholesterol, serum 177 mg/dL 888-174 0500/01/10 triglyceride, serum, fasting 320 mg/dL 30-200 HDL cholesterol, serum 46 mg/dL 32-96 LDL cholesterol, serum 67 mg/dL 0-130 Lab Report: HGBA1C - Chemistry hemoglobin A1C, blood, as % of total hemoglobin 7.1 % 4.3-6.0 hemoglobin A1C, blood, as % of total hemoglobin 7.4 % 4.3-6.0 sodium, serum 140 mmol/L 870-178 7425/09/07 potassium, serum 4.3 mmol/L 3.5-5.2 chloride, serum [...] <30 Encounters Code Encounter Date Provider Facility CPT-64914 Level 4 Est. Patient 09:08:17 SECURITY ARCHITECT Tu Landeros MD [facility] CPT-57007 Level 4 Est. Patient 14:40:19 CDT Tu Landeros MD [facility] CPT-52349 Level 4 Est. Patient 14:06:04 SECURITY ARCHITECT Tu Landeros MD [facility] CPT-58934 Level 3 Est. Patient 14:05:18 SECURITY ARCHITECT Tu Landeros MD [facility] CPT-00295 Level 3 Est. Patient 10:06:54 SECURITY ARCHITECT Miranda Suresh APRN [facility] CPT-96275 Level 4 Est. Patient 13:50:18 SECURITY ARCHITECT Tu Landeros MD [facility] CPT-49756 Level 3 Est. Patient 10:30:04 CDT Tu Landeros MD [facility] CPT-10323 Level 4 Est. Patient 11:03:38 CDT Tu Landeros MD [facility] CPT-73902 Level 3 Est. Patient 10:20:44 CDT Fab Morales DO [facility] CPT-33724 Level 4 Est. Patient 14:38:57 CDT Tu Landeros MD [facility] CPT-51783 Level 4 Est. Patient 14:27:39 SECURITY ARCHITECT Tu Landeros MD [facility] CPT-52530 Level 4 Est. Patient 09:45:25 CDT Tu Landeros MD [facility] CPT-90803 Level 4 Est. Patient 09:05:20 SECURITY ARCHITECT Tu Landeros MD [facility] CPT-23006 Level 4 Est. Patient 14:09:06 CDT Tu Landeros MD [facility] CPT-62739 Level 3 Est. Patient 13:36:54 CDT Tu Landeros MD [facility] CPT-87728 Level 3 Est. Patient 08:59:14 CDT Tu Landeros MD [facility] CPT-72656 Level 3 Est. Patient 13:48:35 CDT Fab Morales DO [facility] CPT-21095 Level 4 Est. Patient 10:05:48 CDT Tu Landeros MD [facility] CPT-67478 Level 3 Est. Patient 13:38:42 CDT Marek BANKS [facility] CPT-32586 Level 5 Est. Patient 08:08:39 CDT Jerrica FRANCIS [facility] CPT-87199 Level 4 Est. Patient 14:23:38 CDT Tu Landeros MD [facility] CPT-33868 Level 3 Est. Patient 11:44:04 CDT Tu Landeros MD [facility] CPT-41057 Level 3 Est. Patient 11:03:20 SECURITY ARCHITECT Tu Landeros MD [facility] CPT-99821 Level 3 Est. Patient 11:03:14 SECURITY ARCHITECT Tu Landeros MD [facility] CPT-16936 Level 3 Est. Patient 12:42:49 CDT Tu Landeros MD [facility] CPT-48414 Level 3 Est. Patient 11:52:06 CDT Tu Landeros MD [facility] CPT-06258 Level 3 Est. Patient 13:58:11 CDT Tu Landeros MD [facility] CPT-22489 Level 3 Est. Patient 17:50:07 CDT Fab Morales DO [facility] CPT-98698 Level 3 Est. Patient 12:06:29 CDT Elvira Cervantes MD PhD [facility] CPT-22057 Level 3 Est. Patient 15:50:32 CDT Tu Landeros MD [facility] CPT-84375 Level 4 Est. Patient 16:08:29 CDT Tu Landeros MD [facility] CPT-65567 Level 3 Est. Patient 16:04:19 CDT Tu Landeros MD [facility] CPT-21571 Level 3 Est. Patient 11:22:30 SECURITY ARCHITECT Tu Landeros MD [facility] CPT-54530 Level 4 Est. Patient 16:24:02 SECURITY ARCHITECT Tu Landeros MD [facility] CPT-06765 Level 3 Est. Patient 17:21:23 SECURITY ARCHITECT Tu Landeros MD [facility] Procedures Code Procedure Name Date Entry Date Standard Description CPT-58465 Magnesium - LAB USE ONLY 11:14:20 SECURITY ARCHITECT CPT-03049 Lipid - LAB USE ONLY 11:14:20 SECURITY ARCHITECT CPT-73914 HGBA1C - LAB USE ONLY 11:14:20 SECURITY ARCHITECT CPT-16846 CMP - LAB USE ONLY 11:14:19 SECURITY ARCHITECT CPT-07235 CBC - LAB USE ONLY 11:14:19 SECURITY ARCHITECT CPT-85308 Venipuncture Draw Fee 11:14:18 SECURITY ARCHITECT CPT-46689 First Vx - Ix admin for Medicare patients 16:46:52 CDT CPT-70403 Fluzone Preservative Free Intramuscular Suspension 16:46 :51 CDT CPT-38682 CBC - LAB USE ONLY 17:14:46 CDT CPT-32109 HGBA1C - LAB USE ONLY 17:14:46 CDT CPT-11969 Venipuncture Draw Fee 17:14:46 CDT CPT-G0438 Initial Annual Wellness Exam 14:13:04 CDT CPT-59512 Breathing Tx 10:06:54 SECURITY ARCHITECT CPT-69750 Postop F/U Visit 10:02:45 CDT CPT-LR Lesion Removal 09:02:56 CDT CPT-JTINJ Asp/Joint Injection 15:51:27 SECURITY ARCHITECT CPT-OV Office Visit 15:52:02 SECURITY ARCHITECT CPT-OV Office Visit 15:45:11 CDT CPT-000 Give Zostavax 14:09:06 CDT CPT-88877 Administration single or combination vaccine inc oral 15 :19:04 CDT CPT-83801 Zoster Vaccine (Zostavax) 15:19:04 CDT CPT-54903 Administration single or combination vaccine inc oral 20 :51:03 CDT CPT-06087 Influenza split virus > age 3 20:51:03 CDT CPT-12957 No Charge Offi Visit 14:52:03 CDT CPT-OV Office Visit 14:57:43 CDT CPT-OV Office Visit 15:22:32 CDT CPT-16023 Administration single or combination vaccine inc oral 11 :33:15 CDT CPT-61164 Influenza split virus > age 3 11:33:15 CDT
--- OUTSIDE RECORDS SUMMARY | 2018-04-25 14:19 | XMS REPORT | Clinical Summary ---
Author Author Admin, SACHI Organization [employer] Address Unknown Phone Unavailable Allergies, Adverse [...] as uncontrolled HEALTH SCREENING V70.0 Inactive Elvira Cervantse MD PhD Routine general medical examination at [...] MG ORAL TABS 1 po qd GLIPIZIDE 03897923534 Active Tu Landeros MD Active VENLAFAXINE HCL 75 MG ORAL TABS 1 po BID VENLAFAXINE HCL 01457762159 Active Tu Landeros MD Active GLIMEPIRIDE 1 MG ORAL TABS 1 po qd GLIMEPIRIDE 58564232640 No Longer Active Tu Landeros MD Active TRUE METRIX BLOOD GLUCOSE TEST INVITR STRP Test blood sugar BID Dx: E11.9 GLUCOSE BLOOD 16436604851 Active Tu Landeros MD Active TRUE METRIX AIR GLUCOSE METER W/DEVICE KIT Test blood glucose BID Dx: E11.9 BLOOD GLUCOSE MONITORING SUPPL 30175286214 Active Tu Landeros MD Active TRUETEST TEST INVITR STRP test blood sugar twice daily. DX 250.0 GLUCOSE BLOOD 87757200142 No Longer Active Mirna Stanley LPN Active TRUEDRAW LANCING DEVICE MISC test blood sugar twice daily dx: 250.00 LANCET DEVICES 59366185054 No Longer Active Mirna Stanley LPN Active ENALAPRIL MALEATE 20 MG TABS 2 po qd ENALAPRIL MALEATE 92808798296 Active Tu Landeros MD Active SUPER B COMPLEX/VITAMIN C TABS 1 qd B COMPLEX-C 76908312920 No Longer Active Tu Landeros MD Active ASPIRIN EC 81 MG ORAL TBEC 1 po qd ASPIRIN 05645889814 Active Tu Landeros MD Active GLUCOSAMINE 500 MG TABS 2 po qd GLUCOSAMINE Active Tu Landeros MD Active SIMVASTATIN 40 MG TABS 0.5 po qHS SIMVASTATIN 50156635267 Active Tu Landeros MD Active FISH OIL 1000 MG CAPS 1 po qd OMEGA-3 FATTY ACIDS 48877782958 Active Tu Landeros MD Active METFORMIN HCL 1000 MG TABS 1 po BID METFORMIN HCL 95508268507 Active Tu Landeros MD Active KLOR-CON 10 10 MEQ CR-TABS 2 po qd POTASSIUM CHLORIDE 25859900618 Active Tu Landeros MD Active FUROSEMIDE 40 MG TAB 1 po qd FUROSEMIDE 03780520247 Active Tu Landeros MD Active REQUIP 2 MG ORAL TABS 1 po qHS PRN Restless legs ROPINIROLE HCL 85926826406 Active Tu Landeros MD Active GABAPENTIN 100 MG CAPS 1 po BID GABAPENTIN 16526172478 Active Tu Landeros MD Active REQUIP 2 MG TABS Take one tablet at bedtime prn ROPINIROLE HCL 18412577028 No Longer Active Tu Landeros MD Active VENTOLIN HFA 108 (90 BASE) MCG/ACT AERS 1-2 puffs every 4 hours if needed for cough/congestion ALBUTEROL SULFATE 69779078143 No Longer Active Ambika King AMANDA Active ZITHROMAX 250 MG TAB 2 po today, then 1 po q days 2-5 AZITHROMYCIN 95336665300 No Longer Active Miranda Suresh APRN Active FLONASE 50 MCG/ACT SUSP 1 spray each nostril twice daily until bottle empty FLUTICASONE PROPIONATE 94295167118 No Longer Active Tu Landeros MD Active COLACE 100 MG CAP 1 po BID PRN Constipation DOCUSATE SODIUM 72689660836 Active Tu Landeros MD Active TRUERESULT BLOOD GLUCOSE W/DEVICE KIT test blood sugar twice daily dx 250.00 BLOOD GLUCOSE MONITORING SUPPL 41211630438 No Longer Active Tu Landeros MD Active TRUEDRAW LANCING DEVICE MISC Test twice a day dx 250.0 LANCET DEVICES 35055198458 No Longer Active Tu Landeros MD Active PREDNISONE 20 MG TAB 2 tablets once daily for 2 days, then 1 tablet once daily for 2 days PREDNISONE 75984404948 No Longer Active Tu Landeros MD Active DICLOFENAC SODIUM 50 MG TBEC 1 tablet by mouth three times a day as needed DICLOFENAC SODIUM 70692180665 No Longer Active Fab Morales DO Active EMBRACE BLOOD GLUCOSE TEST STRP test blood sugar twice daily DX 250.0 2014 GLUCOSE BLOOD 72161099317 No Longer Active Tu Landeros MD Active TRUETEST TEST STRP test blood sugar three times daily dx: 250.00 GLUCOSE BLOOD 77562692414 No Longer Active Suze VOGEL Active TRUERESULT BLOOD GLUCOSE W/DEVICE KIT use to test blood sugar tid dx: 250.00 BLOOD GLUCOSE MONITORING SUPPL 12046196440 No Longer Active Suze VOGEL Active ALIGN 4 MG CAPS 1 tid PROBIOTIC PRODUCT 32621821586 No Longer Active Shaun Sy MD Active CIPRO 500 MG TABS 1 bid x 14 days start 09-28-13 CIPROFLOXACIN HCL 47037945770 No Longer Active Shaun Sy MD Active TRAMADOL HCL 50 MG TABS 1-2 tablets every 6 hours as needed for pain TRAMADOL HCL 25990730782 Active Tu Landeros MD Active HYDROCODONE-ACETAMINOPHEN 5-325 MG TABS 1 tab by mouth every 6 hours as needed for pain HYDROCODONE-ACETAMINOPHEN 19040156748 No Longer Active Tu Landeros MD Active OMEPRAZOLE 20 MG CPDR 1 po q a.m. OMEPRAZOLE 50697050681 Active Lesli Kellogg APRN Active GABAPENTIN 100 MG CAPS 1 po bid GABAPENTIN 74010571099 No Longer Active Tu Landeros MD Active B-12 100 MCG TABS Take one by mouth daily CYANOCOBALAMIN 38712117033 No Longer Active Tu Landeros MD Active BACTRIM DS 800-160 MG TABS 1 bid x 14 day start 09-28-13 SULFAMETHOXAZOLE-TRIMETHOPRIM 03840153268 No Longer Active Tu Landeros MD Active CARVEDILOL 12.5 MG TABS 1 po BID CARVEDILOL 30374501363 Active Tu Landeros MD Active TRILIPIX 135 MG CPDR 1 q hs CHOLINE FENOFIBRATE 57205398715 Active Tu Landeros MD Active FENOFIBRATE 145 MG TABS 1 po qd FENOFIBRATE 27665214414 No Longer Active JASPREET Perez Active OMEPRAZOLE 20 MG TBEC 1 PO 30 MIN BEFORE 1ST MEAL OMEPRAZOLE 75893982714 No Longer Active JASPREET Perez Active SIMVASTATIN 40 MG TABS Take one by mouth daily SIMVASTATIN 32628867517 No Longer Active JASPREET Perez Active VENLAFAXINE HCL 75 MG TABS 1 po BID VENLAFAXINE HCL 67962230701 No Longer Active Gustavo JASPREET Green Active CIPRO 500 MG TAB 1 tablet by mouth twice daily CIPROFLOXACIN HCL 91748316385 No Longer Active Tu Landeros MD Active VENLAFAXINE HCL 37.5 MG TABS 1 po BID VENLAFAXINE HCL 39912577842 No Longer Active Suze Nicole RMA Active LAMISIL 250 MG TAB 1 po qd TERBINAFINE HCL 19824811631 No Longer Active Tu Landeros MD Active LORTAB 5 5-500 MG TABS 1/2 to 1 tablet by mouth every 4 hours as needed for pain HYDROCODONE-ACETAMINOPHEN 98459479072 No Longer Active Tu Landeros MD Active HYDROCODONE-ACETAMINOPHEN 5-500 MG TABS take one po Q 4-6 hours prn HYDROCODONE-ACETAMINOPHEN 81889677179 No Longer Active Tu Landeros MD Active BACTRIM DS 800-160 MG TABS 1 po BID x 7 days SULFAMETHOXAZOLE-TRIMETHOPRIM 46722648751 No Longer Active Tu Landeros MD Active VENLAFAXINE HCL 75 MG TABS 1 po BID VENLAFAXINE HCL 42408977540 No Longer Active Elvira Cervantes MD PhD Active TRAMADOL HCL 50 MG TABS 1 tablets every 6 hours as needed for pain TRAMADOL HCL 09072592857 No Longer Active Tu Landeros MD Active ACCU-CHEK FASTCLIX LANCETS MISC Use to check bloodsugar three times daily as needed LANCETS 84516362003 No Longer Active Tu Landeros MD Active ACCU-CHEK KEYONA PLUS STRP Use for testing bloodsugars three times daily as needed GLUCOSE BLOOD 27823633510 No Longer Active Tu Landeros MD Active ACCU-CHEK KEYONA PLUS W/DEVICE KIT Use for testing bloodsugars three times daily as needed BLOOD GLUCOSE MONITORING SUPPL 05201988103 No Longer Active Tu Landeros MD Active SPIRONOLACTONE 25 MG TAB 0.5 tablet by mouth daily SPIRONOLACTONE 94036596362 No Longer Active Tu Landeros MD Active ALPRAZOLAM 0.5 MG TABS 1 tab every 6hrs as needed ALPRAZOLAM 34904992951 No Longer Active Tu Landeros MD Active AUGMENTIN 875-125 MG TAB 1 tab by mouth twice daily with food AMOXICILLIN-POT CLAVULANATE 16968220447 No Longer Active Tu Landeros MD Active PREDNISONE 20 MG TAB 2 tabs daily for 3 days, 1 tab daily for 3 days, 1/2 tab daily for 2 days PREDNISONE 13171612000 No Longer Active Tu Landeros MD Active XANAX 0.5 MG TABS 1 tablet every 6 hrs prn ALPRAZOLAM 11850123898 No Longer Active Tu Landeros MD Active PREDNISONE 20 MG TAB 2 tabs daily for 3 days, 1 tab daily for 3 days, 1/2 tab daily for 2 days PREDNISONE 86170738386 No Longer Active Tu Landeros MD Active TRIAMCINOLONE ACETONIDE 0.1 % OINT Apply to affected areas TID for up to 2 weeks TRIAMCINOLONE ACETONIDE 17824923263 No Longer Active Tu Landeros MD Active LORTAB 5 5-500 MG TABS 1/2 to 1 tablet by mouth every 4 hours as needed for pain HYDROCODONE-ACETAMINOPHEN 18407091068 No Longer Active Tu Landeros MD Active MULTIVITAMINS TABS Take one by mouth daily MULTIPLE VITAMIN 45637256231 No Longer Active Tu Landeros MD Active MELATONIN 5 MG TABS Take one by mouth daily MELATONIN 47653709114 No Longer Active Tu Landeros MD Active SOMA 350 MG TAB 1 po q 6 hours prn spasm CARISOPRODOL 45883202474 No Longer Active Tu Landeros MD Active MECLIZINE HCL 25 MG CHEW TAB 1 four times a day as needed for dizziness 08/05 MECLIZINE HCL 85340810750 No Longer Active Fab Morales DO Active ANGEL BREEZE 2 TEST DISK test tid prn GLUCOSE BLOOD 73087381025 No Longer Active Negra Scott RN Active REGLAN 10 MG TAB 1 po TID PRN Nausea METOCLOPRAMIDE HCL 48940985481 No Longer Active Tu Landeros MD Active METFORMIN HCL 500 MG TABS 1 PO BID METFORMIN HCL 32071126799 No Longer Active Tu Landeros MD Active AMBIEN 10 MG TAB 1 tab by mouth at bedtime as needed for sleep ZOLPIDEM TARTRATE 51825051723 No Longer Active Tu Landeros MD Active FLUOXETINE HCL 40 MG CAPS 1 po q day FLUOXETINE HCL 70906735779 No Longer Active Mayra Sidney Active TRILIPIX 135 MG CPDR 1 po qd CHOLINE FENOFIBRATE 50543700561 No Longer Active Tu Landeros MD Active AMBIEN 10 MG TAB 1 tab by mouth at bedtime as needed for sleep AMBIEN 10 MG TAB 263300 ZOLPIDEM TARTRATE Inactive METFORMIN HCL 500 MG TABS 1 PO BID METFORMIN HCL 500 MG TABS 732739 METFORMIN HCL Inactive REGLAN 10 MG TAB 1 po TID PRN Nausea REGLAN 10 MG TAB 789697 METOCLOPRAMIDE HCL Inactive MECLIZINE HCL 25 MG CHEW TAB 1 four times a day as needed for dizziness 08/05 MECLIZINE HCL 25 MG CHEW TAB 607006 MECLIZINE HCL Inactive SOMA 350 MG TAB 1 po q 6 hours prn spasm SOMA 350 MG TAB 695738 CARISOPRODOL Inactive MELATONIN 5 MG TABS Take one by mouth daily MELATONIN 5 MG TABS 768789 MELATONIN Inactive MULTIVITAMINS TABS Take one by mouth daily MULTIVITAMINS TABS MULTIPLE VITAMIN Inactive LORTAB 5 5-500 MG TABS 1/2 to 1 tablet by mouth every 4 hours as needed for pain LORTAB 5 5-500 MG TABS HYDROCODONE- ACETAMINOPHEN Inactive XANAX 0.5 MG TABS 1 tablet every 6 hrs prn XANAX 0.5 MG TABS 965308 ALPRAZOLAM Inactive AUGMENTIN 875-125 MG TAB 1 tab by mouth twice daily with food AUGMENTIN 875-125 MG TAB 063070 AMOXICILLIN-POT CLAVULANATE Inactive ALPRAZOLAM 0.5 MG TABS 1 tab every 6hrs as needed ALPRAZOLAM 0.5 MG TABS 356163 ALPRAZOLAM Inactive SPIRONOLACTONE 25 MG TAB 0.5 tablet by mouth daily SPIRONOLACTONE 25 MG TAB 704889 SPIRONOLACTONE Inactive ACCU-CHEK KEYONA PLUS W/DEVICE KIT Use for testing bloodsugars three times daily as needed ACCU-CHEK KEYONA PLUS W/DEVICE KIT BLOOD GLUCOSE MONITORING SUPPL Inactive ACCU-CHEK KEYONA PLUS STRP Use for testing bloodsugars three times daily as needed ACCU-CHEK KEYONA PLUS STRP GLUCOSE BLOOD Inactive ACCU-CHEK FASTCLIX LANCETS MISC Use to check bloodsugar three times daily as needed ACCU-CHEK FASTCLIX LANCETS MISC 45392285393 LANCETS Inactive TRAMADOL HCL 50 MG TABS 1 tablets every 6 hours as needed for pain TRAMADOL HCL 50 MG TABS 245705 TRAMADOL HCL Inactive VENLAFAXINE HCL 75 MG TABS 1 po BID VENLAFAXINE HCL 75 MG TABS 291927 VENLAFAXINE HCL Inactive HYDROCODONE-ACETAMINOPHEN 5-500 MG TABS take one po Q 4-6 hours prn HYDROCODONE-ACETAMINOPHEN 5-500 MG TABS HYDROCODONE- ACETAMINOPHEN Inactive LORTAB 5 5-500 MG TABS 1/2 to 1 tablet by mouth every 4 hours as needed for pain LORTAB 5 5-500 MG TABS HYDROCODONE- ACETAMINOPHEN Inactive LAMISIL 250 MG TAB 1 po qd LAMISIL 250 MG TAB 794624 TERBINAFINE HCL Inactive VENLAFAXINE HCL 37.5 MG TABS 1 po BID VENLAFAXINE HCL 37.5 MG TABS 629082 VENLAFAXINE HCL Inactive CIPRO 500 MG TAB 1 tablet by mouth twice daily CIPRO 500 MG TAB 046260 CIPROFLOXACIN HCL Inactive VENLAFAXINE HCL 75 MG TABS 1 po BID VENLAFAXINE HCL 75 MG TABS 984704 VENLAFAXINE HCL Inactive SIMVASTATIN 40 MG TABS Take one by mouth daily SIMVASTATIN 40 MG TABS 789040 SIMVASTATIN Inactive OMEPRAZOLE 20 MG TBEC 1 PO 30 MIN BEFORE 1ST MEAL OMEPRAZOLE 20 MG TBEC 363053 OMEPRAZOLE Inactive FENOFIBRATE 145 MG TABS 1 po qd FENOFIBRATE 145 MG TABS 524699 FENOFIBRATE Inactive BACTRIM DS 800-160 MG TABS 1 bid x 14 day start 09-28-13 BACTRIM DS 800-160 MG TABS 479326 SULFAMETHOXAZOLE-TRIMETHOPRIM Inactive B-12 100 MCG TABS Take one by mouth daily B-12 100 MCG TABS CYANOCOBALAMIN Inactive GABAPENTIN 100 MG CAPS 1 po bid GABAPENTIN 100 MG CAPS 895804 GABAPENTIN Inactive HYDROCODONE-ACETAMINOPHEN 5-325 MG TABS 1 tab by mouth every 6 hours as needed for pain HYDROCODONE-ACETAMINOPHEN 5-325 MG TABS 514186 HYDROCODONE-ACETAMINOPHEN Inactive CIPRO 500 MG TABS 1 bid x 14 days start 09-28-13 CIPRO 500 MG TABS 692225 CIPROFLOXACIN HCL Inactive ALIGN 4 MG CAPS [...] as needed DICLOFENAC SODIUM 50 MG TBEC 180536 DICLOFENAC SODIUM Inactive PREDNISONE 20 MG TAB 2 tablets once daily for 2 days, then 1 tablet once daily for 2 days PREDNISONE 20 MG TAB 463521 PREDNISONE Inactive TRUEDRAW LANCING DEVICE MISC Test twice a day dx 250.0 TRUEDRAW LANCING DEVICE MISC LANCET DEVICES Inactive TRUERESULT BLOOD GLUCOSE W/DEVICE KIT test blood sugar twice daily dx 250.00 TRUERESULT BLOOD GLUCOSE W/DEVICE KIT BLOOD GLUCOSE MONITORING SUPPL Inactive FLONASE 50 MCG/ACT SUSP 1 spray each nostril twice daily until bottle empty FLONASE 50 MCG/ACT SUSP 6843682 FLUTICASONE PROPIONATE Inactive VENTOLIN HFA 108 (90 BASE) MCG/ACT AERS 1-2 puffs every 4 hours if needed for cough/congestion VENTOLIN HFA 108 (90 BASE) MCG/ACT AERS ALBUTEROL SULFATE Inactive REQUIP 2 MG TABS Take one tablet at bedtime prn REQUIP 2 MG TABS 181228 ROPINIROLE HCL Inactive SUPER B COMPLEX/VITAMIN C TABS 1 qd SUPER B COMPLEX/ VITAMIN C TABS 91216337101 B COMPLEX-C Inactive TRUEDRAW LANCING DEVICE MISC test blood sugar twice daily dx: 250.00 TRUEDRAW LANCING DEVICE MISC LANCET DEVICES Inactive TRUETEST TEST INVITR STRP test blood sugar twice daily. DX 250.0 TRUETEST TEST INVITR STRP GLUCOSE BLOOD Inactive TRIAMCINOLONE ACETONIDE 0.1 % OINT Apply to affected areas TID for up to 2 weeks TRIAMCINOLONE ACETONIDE 0.1 % OINT 1731795 TRIAMCINOLONE ACETONIDE Inactive PREDNISONE 20 MG TAB 2 tabs daily for 3 days, 1 tab daily for 3 days, 1/2 tab daily for 2 days PREDNISONE 20 MG TAB 993736 PREDNISONE Inactive PREDNISONE 20 MG TAB 2 tabs daily for 3 days, 1 tab daily for 3 days, 1/2 tab daily for 2 days PREDNISONE 20 MG TAB 817579 PREDNISONE Inactive BACTRIM DS 800-160 MG TABS 1 po BID x 7 days BACTRIM DS 800-160 MG TABS 121648 SULFAMETHOXAZOLE-TRIMETHOPRIM Inactive ZITHROMAX 250 MG TAB 2 po today, then 1 po q days 2-5 ZITHROMAX 250 MG TAB 4938815 AZITHROMYCIN Inactive Advance Directives Directive Description Start Date DISCUSSED WITH PATIENT -- NO DECISION MADE Immunizations Vaccine Administration Date Value Standard Description Seasonal influenza vaccine, injectable, containing preservative, for > 3 years old (Afluria, FluLaval, Fluzone, Fluvirin, Fluarix, Agriflu(>=18 yo)) Fluzone (>3 yrs.) [[id number]] Influenza, seasonal, injectable influenza immunization (Flu Vax) has been administered 02/22/2012 influenza virus vaccine, unspecified formulation Seasonal influenza vaccine, injectable, containing preservative, for > 3 years old (Afluria, FluLaval, Fluzone, Fluvirin, Fluarix, Agriflu(>=18 yo)) Fluzone (>3 yrs.) [[id number]] Influenza, seasonal, injectable Vital Signs Date Name [...] 4.3-6.0 Lab Report: CBC, HGBA1C - Hematology erythrocyte (RBC) count 4.58 10^6/MM^3 10*6/mm3 4.04-5.48 hemoglobin, blood 13.7 g/dL 12.0-16.0 hematocrit, blood 41.2 % 36.0-46.0 mean corpuscular volume, RBC 90 fL 80-97 mean corpuscular hemoglobin, RBC 29.9 pg 27.0-31.2 leukocyte count, blood 10.8 10^3/MM^3 10*3/mm3 4.6-10.2 mean corpuscular hemoglobin concentration, RBC 33.3 G/DL % 31.8- 35.4 red blood cell distribution width 13.6 % 11.6-14.8 platelet count 279 10^3/MM^3 10*3/mm3 142-424 Lab Report: Comp. Metabolic Panel, Lipid Panel, Magnesium - Chemistry sodium, serum 143 mmol/L 837-533 3119/01/10 creatinine, serum 1.06 mg/dL 0.55-1.30 alanine aminotransferase (SGPT), serum 42 U/L 12-78 aspartate aminotransferase (SGOT), serum 32 U/L 15-37 calcium, serum 9.3 mg/dL 8.5-10.1 bilirubin, serum, total 0.20 mg/dL 0.00-1.00 cholesterol, serum 177 mg/dL 222-117 3156/01/10 triglyceride, serum, fasting 320 mg/dL 30-200 HDL cholesterol, serum 46 mg/dL 32-96 LDL cholesterol, serum 67 mg/dL 0-130 carbon dioxide, venous blood 28.0 mmol/L 21.0-32.0 potassium, serum 4.5 mmol/L 3.5-5.2 chloride, serum 104 mmol/L 98-107 blood glucose 158 mg/dL 65-110 urea nitrogen, blood 23 mg/dL 7- Lab Report: COMPREHENSIVE METABOLIC PANEL, LIPID PANEL, HEMOGLOBIN A1c - Chemistry cholesterol, serum 135 mg/dL 357-889 3219/05/17 HDL cholesterol, serum 41 mg/dL > OR=46 triglyceride, serum, fasting 206 mg/dL <150 LDL cholesterol, serum 53 MG/DL (CALC) mg/dL <130 cholesterol/HDL ratio, serum 3.3 (calc) < OR=5.0 Lab Report: HGBA1C - Chemistry blood glucose 156 mg/dL 65-110 calcium, serum 9.3 mg/dL 8.5-10.1 urea nitrogen, blood 23 mg/dL 7-18 creatinine, serum 1.21 mg/dL 0.55-1.30 carbon dioxide, venous blood 27.7 mmol/L 21.0-32.0 chloride, serum 104 mmol/L 98-107 potassium, serum 4.3 mmol/L 3.5-5.2 sodium, serum 140 mmol/L 092-281 2404/09/07 hemoglobin A1C, blood, as % of total hemoglobin 7.4 % 4.3-6.0 Lab Report: MicroAlb Random w/creat/6517 - Urinalysis microalbumin/total urine volume 21 mg/L Units converted. See lab report for original value. microalbumin/creatinine ratio, urine 11 MCG/MG CREAT mg/L <30 Encounters Code Encounter Date Provider Facility CPT-40130 Level 4 Est. Patient 14:29:21 CDT Tu Landeros MD [facility] CPT-19081 Level 4 Est. Patient 09:08:17 SOLUTION SPEC Tu Landeros MD [facility] CPT-18186 Level 4 Est. Patient 14:40:19 CDT Tu Landeros MD [facility] CPT-88929 Level 4 Est. Patient 14:06:04 SOLUTION SPEC Tu Landeros MD [facility] CPT-17861 Level 3 Est. Patient 14:05:18 SOLUTION SPEC Tu Landeros MD [facility] CPT-21298 Level 3 Est. Patient 10:06:54 SOLUTION SPEC Miranda Suresh APRN [facility] CPT-49072 Level 4 Est. Patient 13:50:18 SOLUTION SPEC Tu Landeros MD [facility] CPT-05691 Level 3 Est. Patient 10:30:04 CDT Tu Landeros MD [facility] CPT-22707 Level 4 Est. Patient 11:03:38 CDT Tu Landeros MD [facility] CPT-34315 Level 3 Est. Patient 10:20:44 CDT Fab Morales DO [facility] CPT-40280 Level 4 Est. Patient 14:38:57 CDT Tu Landeros MD [facility] CPT-09755 Level 4 Est. Patient 14:27:39 SOLUTION SPEC Tu Landeros MD [facility] CPT-59687 Level 4 Est. Patient 09:45:25 CDT Tu Landeros MD [facility] CPT-23707 Level 4 Est. Patient 09:05:20 SOLUTION SPEC Tu Landeros MD [facility] CPT-47735 Level 4 Est. Patient 14:09:06 CDT Tu Landeros MD [facility] CPT-31881 Level 3 Est. Patient 13:36:54 CDT Tu Landeros MD [facility] CPT-84822 Level 3 Est. Patient 08:59:14 CDT Tu Landeros MD [facility] CPT-86191 Level 3 Est. Patient 13:48:35 CDT Fab Morales DO [facility] CPT-63563 Level 4 Est. Patient 10:05:48 CDT Tu Landeros MD [facility] CPT-64730 Level 3 Est. Patient 13:38:42 CDT Marek BANKS [facility] CPT-39299 Level 5 Est. Patient 08:08:39 CDT Maxjanelle Kellie FRANCIS [facility] CPT-82237 Level 4 Est. Patient 14:23:38 CDT Tu Landeros MD [facility] CPT-93341 Level 3 Est. Patient 11:44:04 CDT Tu Landeros MD [facility] CPT-45897 Level 3 Est. Patient 11:03:20 SOLUTION SPEC Tu Landeros MD [facility] CPT-08654 Level 3 Est. Patient 11:03:14 SOLUTION SPEC Tu Landeros MD [facility] CPT-05875 Level 3 Est. Patient 12:42:49 CDT Tu Landeros MD [facility] CPT-11033 Level 3 Est. Patient 11:52:06 CDT Tu Landeros MD [facility] CPT-01773 Level 3 Est. Patient 13:58:11 CDT Tu Landeros MD [facility] CPT-50050 Level 3 Est. Patient 17:50:07 CDT Fab Morales DO [facility] CPT-59466 Level 3 Est. Patient 12:06:29 CDT Elvira Cervantes MD, PhD [facility] CPT-45256 Level 3 Est. Patient 15:50:32 CDT Tu Landeros MD [facility] CPT-65420 Level 4 Est. Patient 16:08:29 CDT Tu Landeros MD [facility] CPT-60980 Level 3 Est. Patient 16:04:19 CDT Tu Landeros MD [facility] CPT-31996 Level 3 Est. Patient 11:22:30 SOLUTION SPEC Tu Landeros MD [facility] CPT-10035 Level 4 Est. Patient 16:24:02 SOLUTION SPEC Tu Landeros MD [facility] CPT-06582 Level 3 Est. Patient 17:21:23 SOLUTION SPEC Tu Landeros MD [facility] Procedures Code Procedure Name Date Entry Date Standard Description CPT-G0009 Administration of Pneumococcal Vaccine 15:08:26 CDT CPT-11008 Prevnar 13 Intramuscular Suspension 15:08:26 CDT 10/08 CPT-G0439 [facility] Annual Wellness Exam 14:29:22 CDT CPT-72936 Venipuncture Draw Fee 13:15:35 CDT CPT-91484 Magnesium - LAB USE ONLY 11:14:20 SOLUTION SPEC CPT-41812 Lipid - LAB USE ONLY 11:14:20 SOLUTION SPEC CPT-44558 HGBA1C - LAB USE ONLY 11:14:20 SOLUTION SPEC CPT-91467 CMP - LAB USE ONLY 11:14:19 SOLUTION SPEC CPT-79384 CBC - LAB USE ONLY 11:14:19 SOLUTION SPEC CPT-99029 Venipuncture Draw Fee 11:14:18 SOLUTION SPEC CPT-87453 First Vx - Ix admin for Medicare patients 16:46:52 CDT CPT-99793 Fluzone Preservative Free Intramuscular Suspension 16:46 :51 CDT CPT-13786 CBC - LAB USE ONLY 17:14:46 CDT CPT-11565 HGBA1C - LAB USE ONLY 17:14:46 CDT CPT-84532 Venipuncture Draw Fee 17:14:46 CDT CPT-G0438 Initial Annual Wellness Exam 14:13:04 CDT CPT-84511 Breathing Tx 10:06:54 SOLUTION SPEC CPT-43866 Postop F/U Visit 10:02:45 CDT CPT-LR Lesion Removal 09:02:56 CDT CPT-JTINJ Asp/Joint Injection 15:51:27 SOLUTION SPEC CPT-OV Office Visit 15:52:02 SOLUTION SPEC CPT-OV Office Visit 15:45:11 CDT CPT-000 Give Zostavax 14:09:06 CDT CPT-33622 Administration single or combination vaccine inc oral 15 :19:04 CDT CPT-38333 Zoster Vaccine (Zostavax) 15:19:04 CDT CPT-84168 Administration single or combination vaccine inc oral 20 :51:03 CDT CPT-70796 Influenza split virus > age 3 20:51:03 CDT CPT-17636 No Charge Offi Visit 14:52:03 CDT CPT-OV Office Visit 14:57:43 CDT CPT-OV Office Visit 15:22:32 CDT CPT-32302 Administration single or combination vaccine inc oral 11 :33:15 CDT CPT-62505 Influenza split virus > age 3 11:33:15 CDT
--- OUTSIDE RECORDS SUMMARY | 2018-04-25 14:20 | XMS REPORT | Clinical Summary ---
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 Acute sinusitis, unspecified Leg pain, left 729.5 Active Tu Landeros MD Pain in limb HEALTH SCREENING ICD-V70.0 Inactive Elvira Cervantes MD PhD 2011 POSTMENOPAUSAL BLEEDING ICD-627.1 Inactive Elvira Cervantes MD PhD DIZZINESS ICD-780.4 Inactive Tu Landeros MD INSOMNIA, PERSISTENT ICD-307.42 Inactive Tu Landeros MD GASTROENTERITIS ICD-558.9 Inactive Tu Landeros MD FREQUENCY, URINARY ICD-788.41 Inactive Elvira Cervantes MD PhD FEVER UNSPECIFIED ICD-780.60 Inactive Tu Landeros MD MUSCLE SPASM ICD-728.85 Inactive Tu Landeros MD BENIGN PAROXYSMAL POSITIONAL VERTIGO ICD-386.11 Inactive Tu Landeros MD SHOULDER PAIN, LEFT ICD-719.41 Inactive Tu Landeros MD LEG CRAMPS, NOCTURNAL ICD-729.82 Inactive Tu Landeros MD RASH AND OTHER NONSPECIFIC SKIN ERUPTION ICD-782.1 Inactive Tu Landeros MD SCIATICA ICD-724.3 Inactive Tu Landeros MD 2012 CARPAL TUNNEL SYNDROME ICD-354.0 Inactive Tu Landeros MD ARTHRITIS ICD-716.90 Inactive Tu Landeros MD KNEE PAIN ICD-719.46 Inactive Tu Landeros MD CONTUSION OF UNSPECIFIED SITE ICD-924.9 Inactive Tu Landeros MD PARESTHESIA ICD-782.0 Tessa Landeros MD LOCALIZED SUPERFICIAL SWELLING MASS OR LUMP ICD-782.2 Inactive Tu Landeros MD FATIGUE ICD-780.79 Inactive Tu Landeros MD 2012 ONYCHOMYCOSIS ICD-110.1 Inactive Tu Landeros MD PRESSURE [...] hours if needed for cough/congestion ALBUTEROL SULFATE 06533334029 Active Miranda Suresh APRN Active ZITHROMAX 250 MG TAB 2 po today, then 1 po q days 2-5 AZITHROMYCIN 68638734749 No Longer Active Miranda Suresh APRN Active METFORMIN HCL 1000 MG TABS 1 tablet by mouth twice daily METFORMIN HCL 99386552670 Active Tu Landeros MD Active FLONASE 50 MCG/ACT SUSP 1 spray each nostril twice daily until bottle empty FLUTICASONE PROPIONATE 47860681843 No Longer Active Tu Landeros MD Active COLACE 100 MG CAP 1 po BID PRN Constipation DOCUSATE SODIUM 46214503860 Active Tu Landeros MD Active SIMVASTATIN 40 MG TABS 0.5 tab daily at bedtime SIMVASTATIN 58726664404 Active Tu Landeros MD Active TRUERESULT BLOOD GLUCOSE W/DEVICE KIT test blood sugar twice daily dx 250.00 BLOOD GLUCOSE MONITORING SUPPL 93095797818 No Longer Active Tu Landeros MD Active TRUEDRAW LANCING DEVICE MISC Test twice a day dx 250.0 LANCET DEVICES 91031394606 No Longer Active Tu Landeros MD Active PREDNISONE 20 MG TAB 2 tablets once daily for 2 days, then 1 tablet once daily for 2 days PREDNISONE 27649299604 No Longer Active Tu Landeros MD Active DICLOFENAC SODIUM 50 MG TBEC 1 tablet by mouth three times a day as needed DICLOFENAC SODIUM 73821689373 No Longer Active Fab Morales DO Active TRUEDRAW LANCING DEVICE MISC test blood sugar twice daily dx: 250.00 LANCET DEVICES 75305274447 Active Tu Landeros MD Active TRUETEST TEST INVITR STRP test blood sugar twice daily. DX 250.0 GLUCOSE BLOOD 56807769220 Active Tu Landeros MD Active EMBRACE BLOOD GLUCOSE TEST STRP test blood sugar twice daily DX 250.0 2014 GLUCOSE BLOOD 88146762666 No Longer Active Tu Landeros MD Active TRUETEST TEST STRP test blood sugar three times daily dx: 250.00 GLUCOSE BLOOD 19399906942 No Longer Active Suze VOGEL Active TRUERESULT BLOOD GLUCOSE W/DEVICE KIT use to test blood sugar tid dx: 250.00 BLOOD GLUCOSE MONITORING SUPPL 98062953084 No Longer Active Suze VOGEL Active ALIGN 4 MG CAPS 1 tid PROBIOTIC PRODUCT 82347358712 No Longer Active Shaun Sy MD Active CIPRO 500 MG TABS 1 bid x 14 days start 09-28-13 CIPROFLOXACIN HCL 52297445198 No Longer Active Shaun Sy MD Active TRAMADOL HCL 50 MG TABS 1-2 tablets every 6 hours as needed for pain TRAMADOL HCL 78221578737 Active Tu Landeros MD Active HYDROCODONE-ACETAMINOPHEN 5-325 MG TABS 1 tab by mouth every 6 hours as needed for pain HYDROCODONE-ACETAMINOPHEN 63800700762 No Longer Active Tu Landeros MD Active OMEPRAZOLE 20 MG CPDR 1 po q a.m. OMEPRAZOLE 01717940225 Active Tu Landeros MD Active GABAPENTIN 100 MG CAPS 1 po bid GABAPENTIN 20836627415 No Longer Active Tu Landeros MD Active B-12 100 MCG TABS Take one by mouth daily CYANOCOBALAMIN 07286606828 No Longer Active Tu Landeros MD Active GABAPENTIN 100 MG CAPS by mouth twice a day GABAPENTIN 08313301315 Active Tu Landeros MD Active BACTRIM DS 800-160 MG TABS 1 bid x 14 day start 09-28-13 SULFAMETHOXAZOLE-TRIMETHOPRIM 99992405749 No Longer Active Tu Landeros MD Active CARVEDILOL 12.5 MG TABS 1 po BID CARVEDILOL 47437926423 Active Tu Landeros MD Active SUPER B COMPLEX/VITAMIN C TABS 1 qd B COMPLEX-C 56980202928 Active JASPREET Perez Active TRILIPIX 135 MG CPDR 1 q hs CHOLINE FENOFIBRATE 55262693311 Active Tu Landeros MD Active FENOFIBRATE 145 MG TABS 1 po qd FENOFIBRATE 46197269584 No Longer Active JASPREET Perez Active OMEPRAZOLE 20 MG TBEC 1 PO 30 MIN BEFORE 1ST MEAL OMEPRAZOLE 65601497606 No Longer Active JASPREET Perez Active SIMVASTATIN 40 MG TABS Take one by mouth daily SIMVASTATIN 25327459945 No Longer Active JASPREET Perez Active VENLAFAXINE HCL 37.5 MG TABS 1 bid VENLAFAXINE HCL 80089096584 Active Tu Landeros MD Active VENLAFAXINE HCL 75 MG TABS 1 po BID VENLAFAXINE HCL 06913931180 No Longer Active JASPREET Perez Active CIPRO 500 MG TAB 1 tablet by mouth twice daily CIPROFLOXACIN HCL 31585016691 No Longer Active Tu Landeros MD Active VENLAFAXINE HCL 37.5 MG TABS 1 po BID VENLAFAXINE HCL 35121626837 No Longer Active Suze NUNOA Active LAMISIL 250 MG TAB 1 po qd TERBINAFINE HCL 90001784789 No Longer Active Tu Landeros MD Active LORTAB 5 5-500 MG TABS 1/2 to 1 tablet by mouth every 4 hours as needed for pain HYDROCODONE-ACETAMINOPHEN 08961800220 No Longer Active Tu Landeros MD Active ENALAPRIL MALEATE 20 MG TABS 1.5 po qd ENALAPRIL MALEATE 22547519313 Active Tu Landeros MD Active HYDROCODONE-ACETAMINOPHEN 5-500 MG TABS take one po Q 4-6 hours prn HYDROCODONE-ACETAMINOPHEN 81425428910 No Longer Active Tu Landeros MD Active BACTRIM DS 800-160 MG TABS 1 po BID x 7 days SULFAMETHOXAZOLE-TRIMETHOPRIM 47661471358 No Longer Active Tu Landeros MD Active VENLAFAXINE HCL 75 MG TABS 1 po BID VENLAFAXINE HCL 86738198668 No Longer Active Elvira Cervantes MD PhD Active TRAMADOL HCL 50 MG TABS 1 tablets every 6 hours as needed for pain TRAMADOL HCL 34154869265 No Longer Active Tu Landeros MD Active ACCU-CHEK FASTCLIX LANCETS MISC Use to check bloodsugar three times daily as needed LANCETS 43814900781 No Longer Active Tu Landeros MD Active ACCU-CHEK KEYONA PLUS STRP Use for testing bloodsugars three times daily as needed GLUCOSE BLOOD 90890954844 No Longer Active Tu Landeros MD Active ACCU-CHEK KEYONA PLUS W/DEVICE KIT Use for testing bloodsugars three times daily as needed BLOOD GLUCOSE MONITORING SUPPL 33061375853 No Longer Active Tu Landeros MD Active SPIRONOLACTONE 25 MG TAB 0.5 tablet by mouth daily SPIRONOLACTONE 24209356743 No Longer Active Tu Landeros MD Active ALPRAZOLAM 0.5 MG TABS 1 tab every 6hrs as needed ALPRAZOLAM 12801501942 No Longer Active Tu Landeros MD Active AUGMENTIN 875-125 MG TAB 1 tab by mouth twice daily with food AMOXICILLIN-POT CLAVULANATE 92622794931 No Longer Active Tu Landeros MD Active PREDNISONE 20 MG TAB 2 tabs daily for 3 days, 1 tab daily for 3 days, 1/2 tab daily for 2 days PREDNISONE 44867242872 No Longer Active Tu Landeros MD Active XANAX 0.5 MG TABS 1 tablet every 6 hrs prn ALPRAZOLAM 45476018187 No Longer Active Tu Landeros MD Active PREDNISONE 20 MG TAB 2 tabs daily for 3 days, 1 tab daily for 3 days, 1/2 tab daily for 2 days PREDNISONE 60307165287 No Longer Active Tu Landeros MD Active TRIAMCINOLONE ACETONIDE 0.1 % OINT Apply to affected areas TID for up to 2 weeks TRIAMCINOLONE ACETONIDE 48630697777 No Longer Active Tu Landeros MD Active LORTAB 5 5-500 MG TABS 1/2 to 1 tablet by mouth every 4 hours as needed for pain HYDROCODONE-ACETAMINOPHEN 12125290513 No Longer Active Tu Landeros MD Active MULTIVITAMINS TABS Take one by mouth daily MULTIPLE VITAMIN 69944232476 No Longer Active Tu Landeros MD Active MELATONIN 5 MG TABS Take one by mouth daily MELATONIN 61434225811 No Longer Active Tu Landeros MD Active SOMA 350 MG TAB 1 po q 6 hours prn spasm CARISOPRODOL 08611543034 No Longer Active Tu Landeros MD Active MECLIZINE HCL 25 MG CHEW TAB 1 four times a day as needed for dizziness 08/05 MECLIZINE HCL 16943301164 No Longer Active Fab Morales DO Active ANGEL BREEZE 2 TEST DISK test tid prn GLUCOSE BLOOD 38802667956 No Longer Active Negra Scott RN Active REGLAN 10 MG TAB 1 po TID PRN Nausea METOCLOPRAMIDE HCL 06515376615 No Longer Active Tu Landeros MD Active METFORMIN HCL 500 MG TABS 1 PO BID METFORMIN HCL 34707167545 No Longer Active Tu Landeros MD Active AMBIEN 10 MG TAB 1 tab by mouth at bedtime as needed for sleep ZOLPIDEM TARTRATE 09256434007 No Longer Active Tu Landeros MD Active FLUOXETINE HCL 40 MG CAPS 1 po q day FLUOXETINE HCL 57751727996 No Longer Active Mayra Terry Active FISH OIL 1000 MG CAPS Take one by mouth daily OMEGA-3 FATTY ACIDS 42498945696 Active Tu Landeros MD Active GLUCOSAMINE 500 MG TABS Take 2 tab po qd GLUCOSAMINE 97015373264 Active Tu Landeros MD Active TRILIPIX 135 MG CPDR 1 po qd CHOLINE FENOFIBRATE 21190451974 No Longer Active Tu Landeros MD Active ASPIRIN 81 MG CHEW TAB 1 tablet by mouth daily ASPIRIN 64394709611 Active Tu Landeros MD Active FUROSEMIDE 40 MG TAB 1 tablet by mouth daily FUROSEMIDE 84517599973 Active Tu Landeros MD Active REQUIP 2 MG TABS Take one tablet at bedtime prn ROPINIROLE HCL 41688353868 Active Tu Landeros MD Active KLOR-CON 10 10 MEQ CR-TABS TAKE 2 TABS DAILY POTASSIUM CHLORIDE 44325127890 Active Tu Landeros MD Active AMBIEN 10 MG TAB 1 tab by mouth at bedtime as needed for sleep AMBIEN 10 MG TAB 858499 ZOLPIDEM TARTRATE Inactive METFORMIN HCL 500 MG TABS 1 PO BID METFORMIN HCL 500 MG TABS 170810 METFORMIN HCL Inactive REGLAN 10 MG TAB 1 po TID PRN Nausea REGLAN 10 MG TAB 114795 METOCLOPRAMIDE HCL Inactive MECLIZINE HCL 25 MG CHEW TAB 1 four times a day as needed for dizziness 08/05 MECLIZINE HCL 25 MG CHEW TAB 395070 MECLIZINE HCL Inactive SOMA 350 MG TAB 1 po q 6 hours prn spasm SOMA 350 MG TAB 892016 CARISOPRODOL Inactive MELATONIN 5 MG TABS Take one by mouth daily MELATONIN 5 MG TABS 182891 MELATONIN Inactive MULTIVITAMINS TABS Take one by mouth daily MULTIVITAMINS TABS MULTIPLE VITAMIN Inactive LORTAB 5 5-500 MG TABS 1/2 to 1 tablet by mouth every 4 hours as needed for pain LORTAB 5 5-500 MG TABS HYDROCODONE- ACETAMINOPHEN Inactive XANAX 0.5 MG TABS 1 tablet every 6 hrs prn XANAX 0.5 MG TABS 417701 ALPRAZOLAM Inactive AUGMENTIN 875-125 MG TAB 1 tab by mouth twice daily with food AUGMENTIN 875-125 MG TAB 983064 AMOXICILLIN-POT CLAVULANATE Inactive ALPRAZOLAM 0.5 MG TABS 1 tab every 6hrs as needed ALPRAZOLAM 0.5 MG TABS 617330 ALPRAZOLAM Inactive SPIRONOLACTONE 25 MG TAB 0.5 tablet by mouth daily SPIRONOLACTONE 25 MG TAB 176737 SPIRONOLACTONE Inactive ACCU-CHEK KEYONA PLUS W/DEVICE KIT Use for testing bloodsugars three times daily as needed ACCU-CHEK KEYONA PLUS W/DEVICE KIT BLOOD GLUCOSE MONITORING SUPPL Inactive ACCU-CHEK KEYONA PLUS STRP Use for testing bloodsugars three times daily as needed ACCU-CHEK KEYONA PLUS STRP GLUCOSE BLOOD Inactive ACCU-CHEK FASTCLIX LANCETS MISC Use to check bloodsugar three times daily as needed ACCU-CHEK FASTCLIX LANCETS MISC 93631650531 LANCETS Inactive TRAMADOL HCL 50 MG TABS 1 tablets every 6 hours as needed for pain TRAMADOL HCL 50 MG TABS 136419 TRAMADOL HCL Inactive VENLAFAXINE HCL 75 MG TABS 1 po BID VENLAFAXINE HCL 75 MG TABS 558636 VENLAFAXINE HCL Inactive HYDROCODONE-ACETAMINOPHEN 5-500 MG TABS take one po Q 4-6 hours prn HYDROCODONE-ACETAMINOPHEN 5-500 MG TABS HYDROCODONE- ACETAMINOPHEN Inactive LORTAB 5 5-500 MG TABS 1/2 to 1 tablet by mouth every 4 hours as needed for pain LORTAB 5 5-500 MG TABS HYDROCODONE- ACETAMINOPHEN Inactive LAMISIL 250 MG TAB 1 po qd LAMISIL 250 MG TAB 810797 TERBINAFINE HCL Inactive VENLAFAXINE HCL 37.5 MG TABS 1 po BID VENLAFAXINE HCL 37.5 MG TABS 262619 VENLAFAXINE HCL Inactive CIPRO 500 MG TAB 1 tablet by mouth twice daily CIPRO 500 MG TAB 122197 CIPROFLOXACIN HCL Inactive VENLAFAXINE HCL 75 MG TABS 1 po BID VENLAFAXINE HCL 75 MG TABS 122803 VENLAFAXINE HCL Inactive SIMVASTATIN 40 MG TABS Take one by mouth daily SIMVASTATIN 40 MG TABS 404106 SIMVASTATIN Inactive OMEPRAZOLE 20 MG TBEC 1 PO 30 MIN BEFORE 1ST MEAL OMEPRAZOLE 20 MG TBEC 955058 OMEPRAZOLE Inactive FENOFIBRATE 145 MG TABS 1 po qd FENOFIBRATE 145 MG TABS 575067 FENOFIBRATE Inactive BACTRIM DS 800-160 MG TABS 1 bid x 14 day start 09-28-13 BACTRIM DS 800-160 MG TABS 170435 SULFAMETHOXAZOLE-TRIMETHOPRIM Inactive B-12 100 MCG TABS Take one by mouth daily B-12 100 MCG TABS CYANOCOBALAMIN Inactive GABAPENTIN 100 MG CAPS 1 po bid GABAPENTIN 100 MG CAPS 390946 GABAPENTIN Inactive HYDROCODONE-ACETAMINOPHEN 5-325 MG TABS 1 tab by mouth every 6 hours as needed for pain HYDROCODONE-ACETAMINOPHEN 5-325 MG TABS 846066 HYDROCODONE-ACETAMINOPHEN Inactive CIPRO 500 MG TABS 1 bid x 14 days start 09-28-13 CIPRO 500 MG TABS 586301 CIPROFLOXACIN HCL Inactive ALIGN 4 MG CAPS [...] as needed DICLOFENAC SODIUM 50 MG TBEC 016839 DICLOFENAC SODIUM Inactive PREDNISONE 20 MG TAB 2 tablets once daily for 2 days, then 1 tablet once daily for 2 days PREDNISONE 20 MG TAB 481910 PREDNISONE Inactive TRUEDRAW LANCING DEVICE MISC Test [...] 2 weeks TRIAMCINOLONE ACETONIDE 0.1 % OINT 8297179 TRIAMCINOLONE ACETONIDE Inactive PREDNISONE 20 MG TAB 2 tabs daily for 3 days, 1 tab daily for 3 days, 1/2 tab daily for 2 days PREDNISONE 20 MG TAB 876094 PREDNISONE Inactive PREDNISONE 20 MG TAB 2 tabs daily for 3 days, 1 tab daily for 3 days, 1/2 tab daily for 2 days PREDNISONE 20 MG TAB 775878 PREDNISONE Inactive BACTRIM DS 800-160 MG TABS 1 po BID x 7 days BACTRIM DS 800-160 MG TABS 821543 SULFAMETHOXAZOLE-TRIMETHOPRIM Inactive ZITHROMAX 250 MG TAB 2 po today, then 1 po q days 2-5 ZITHROMAX 250 MG TAB 3831847 AZITHROMYCIN Inactive Immunizations Vaccine Administration Date Value Standard Description Seasonal influenza vaccine, injectable, containing preservative, for > 3 years old (Afluria, FluLaval, Fluzone, Fluvirin, Fluarix, Agriflu(>=18 yo)) Fluzone (>3 yrs.) [[id number]] Influenza, seasonal, injectable influenza immunization (Flu Vax) has been administered 02/22/2012 influenza virus vaccine, unspecified formulation Seasonal influenza vaccine, injectable, containing preservative, for > 3 years old (Afluria, FluLaval, Fluzone, Fluvirin, Fluarix, Agriflu(>=18 yo)) Fluzone (>3 yrs.) [[id number]] Influenza, seasonal, injectable Vital Signs Date Name [...] mg/g mg/g{creat} 0-29 sodium, serum 142 mmol/L 700-755 7132/10/08 potassium, serum 4.5 mmol/L 3.5-5.2 chloride, serum 105 mmol/L 98-107 carbon dioxide, venous blood 28.9 mmol/L 21.0-32.0 blood glucose 142 mg/dL 65-110 calcium, serum 9.1 mg/dL 8.5-10.1 urea nitrogen, blood 17 mg/dL 7-18 creatinine, serum 0.92 mg/dL 0.55-1.30 Lab Report: Basic Metabolic Panel, MICROALBUMIN - Lab microalbumin, urine 10 0-19 Lab Report: HEPATIC PANEL, Lipid Panel - Chemistry HDL cholesterol, serum 32 mg/dL 32-96 LDL cholesterol, serum 44 mg/dL 0-130 triglyceride, serum, fasting 177 mg/dL 30-200 cholesterol, serum 111 mg/dL 810-646 6965/07/28 bilirubin, serum, total 0.30 mg/dL 0.00-1.00 alanine aminotransferase (SGPT), serum 32 U/L 12-78 aspartate aminotransferase (SGOT), serum 18 U/L 15-37 Lab Report: HGBA1C - Chemistry hemoglobin A1C, [...] Panel - Chemistry cholesterol, serum 124 mg/dL 849-949 4485/01/12 triglyceride, serum, fasting 135 mg/dL 30-200 HDL cholesterol, serum 41 mg/dL 32-96 LDL cholesterol, serum 56 mg/dL 0-130 sodium, serum 140 mmol/L 633-668 0726/01/12 carbon dioxide, venous blood 27.7 mmol/L 21.0-32.0 potassium, serum 4.5 mmol/L 3.5-5.2 chloride, serum 104 mmol/L 98-107 blood glucose 139 mg/dL 65-110 urea nitrogen, blood 16 mg/dL 7-18 alanine aminotransferase (SGPT), serum 32 U/L 12-78 aspartate aminotransferase (SGOT), serum 25 U/L 15-37 calcium, serum 9.1 mg/dL 8.5-10.1 bilirubin, serum, total 0.50 mg/dL 0.00-1.00 Encounters Code Encounter Date Provider Facility CPT-89399 Level 4 Est. Patient 14:06:04 RECREATION ESTABLISHMENT MANAGER Tu Landeros MD [facility] CPT-07454 Level 3 Est. Patient 14:05:18 RECREATION ESTABLISHMENT MANAGER Tu Landeros MD [facility] CPT-18024 Level 3 Est. Patient 10:06:54 RECREATION ESTABLISHMENT MANAGER Miranda Suresh APRN [facility] CPT-81687 Level 4 Est. Patient 13:50:18 RECREATION ESTABLISHMENT MANAGER Tu Landeros MD [facility] CPT-30533 Level 3 Est. Patient 10:30:04 CDT Tu Landeros MD [facility] CPT-98082 Level 4 Est. Patient 11:03:38 CDT Tu Landeros MD [facility] CPT-03966 Level 3 Est. Patient 10:20:44 CDT Fab Morales DO [facility] CPT-51596 Level 4 Est. Patient 14:38:57 CDT Tu Landeros MD [facility] CPT-55342 Level 4 Est. Patient 14:27:39 RECREATION ESTABLISHMENT MANAGER Tu Landeros MD [facility] CPT-99584 Level 4 Est. Patient 09:45:25 CDT Tu Landeros MD [facility] CPT-25461 Level 4 Est. Patient 09:05:20 RECREATION ESTABLISHMENT MANAGER Tu Landeros MD [facility] CPT-95444 Level 4 Est. Patient 14:09:06 CDT Tu Landeros MD [facility] CPT-53047 Level 3 Est. Patient 13:36:54 CDT Tu Landeros MD [facility] CPT-99550 Level 3 Est. Patient 08:59:14 CDT Tu Landeros MD [facility] CPT-20576 Level 3 Est. Patient 13:48:35 CDT Fab Morales DO [facility] CPT-14974 Level 4 Est. Patient 10:05:48 CDT Tu Landeros MD [facility] CPT-03322 Level 3 Est. Patient 13:38:42 CDT Marek BANKS [facility] CPT-97116 Level 5 Est. Patient 08:08:39 CDT Jerrica FRANCIS [facility] CPT-86833 Level 4 Est. Patient 14:23:38 CDT Tu Landeros MD [facility] CPT-28274 Level 3 Est. Patient 11:44:04 CDT Tu Landeros MD [facility] CPT-99288 Level 3 Est. Patient 11:03:20 RECREATION ESTABLISHMENT MANAGER Tu Landeros MD [facility] CPT-84290 Level 3 Est. Patient 11:03:14 RECREATION ESTABLISHMENT MANAGER Tu Landeros MD [facility] CPT-98656 Level 3 Est. Patient 12:42:49 CDT Tu Landeros MD [facility] CPT-06537 Level 3 Est. Patient 11:52:06 CDT Tu Landeros MD [facility] CPT-29339 Level 3 Est. Patient 13:58:11 CDT Tu Landeros MD [facility] CPT-14489 Level 3 Est. Patient 17:50:07 CDT Fab Morales DO [facility] CPT-07891 Level 3 Est. Patient 12:06:29 CDT Elvira Cervantes MD, PhD [facility] CPT-14408 Level 3 Est. Patient 15:50:32 CDT Tu Landeros MD [facility] CPT-67154 Level 4 Est. Patient 16:08:29 CDT Tu Landeros MD [facility] CPT-84715 Level 3 Est. Patient 16:04:19 CDT Tu Landeros MD [facility] CPT-39285 Level 3 Est. Patient 11:22:30 RECREATION ESTABLISHMENT MANAGER Tu Landeros MD [facility] CPT-47479 Level 4 Est. Patient 16:24:02 RECREATION ESTABLISHMENT MANAGER Tu Landeros MD [facility] CPT-25727 Level 3 Est. Patient 17:21:23 RECREATION ESTABLISHMENT MANAGER Tu Landeros MD [facility] Procedures Code Procedure Name Date Entry Date Standard Description CPT-41381 Breathing Tx 10:06:54 RECREATION ESTABLISHMENT MANAGER CPT-42395 Postop F/U Visit 10:02:45 CDT CPT-LR Lesion Removal 09:02:56 CDT CPT-JTINJ Asp/Joint Injection 15:51:27 RECREATION ESTABLISHMENT MANAGER CPT-OV Office Visit 15:52:02 RECREATION ESTABLISHMENT MANAGER CPT-OV Office Visit 15:45:11 CDT CPT-000 Give Zostavax 14:09:06 CDT CPT-07917 Administration single or combination vaccine inc oral 15 :19:04 CDT CPT-76368 Zoster Vaccine (Zostavax) 15:19:04 CDT CPT-42607 Administration single or combination vaccine inc oral 20 :51:03 CDT CPT-86142 Influenza split virus > age 3 20:51:03 CDT CPT-76793 No Charge Offi Visit 14:52:03 CDT CPT-OV Office Visit 14:57:43 CDT CPT-OV Office Visit 15:22:32 CDT CPT-83044 Administration single or combination vaccine inc oral 11 :33:15 CDT CPT-24732 Influenza split virus > age 3 11:33:15 CDT
--- OUTSIDE RECORDS SUMMARY | 2018-04-25 14:21 | XMS REPORT | Clinical Summary ---
Author Author Admin, SACHI Organization [facility] Address Unknown Phone Unavailable Allergies, Adverse Reactions, [...] gastroenteritis and colitis DIZZINESS 780.4 Resolved Tu aLnderos MD Dizziness and giddiness BENIGN PAROXYSMAL POSITIONAL [...] blood sugar BID Dx: E11.9 GLUCOSE BLOOD 11347715333 Active Tu Landeros MD Active TRUE METRIX AIR GLUCOSE METER W/DEVICE KIT Test blood glucose BID Dx: E11.9 BLOOD GLUCOSE MONITORING SUPPL 27304055007 Active Tu Landeros MD Active TRUETEST TEST INVITR STRP test blood sugar twice daily. DX 250.0 GLUCOSE BLOOD 30200136202 No Longer Active Mirna Stanley LPN Active TRUEDRAW LANCING DEVICE MISC test blood sugar twice daily dx: 250.00 LANCET DEVICES 35150201719 No Longer Active Mirna Stanley LPN Active ENALAPRIL MALEATE 20 MG TABS 2 po qd ENALAPRIL MALEATE 41915077677 Active Tu Landeros MD Active SUPER B COMPLEX/VITAMIN C TABS 1 qd B COMPLEX-C 17308897420 No Longer Active Tu Landeros MD Active ASPIRIN EC 81 MG ORAL TBEC 1 po qd ASPIRIN 86557919410 Active Tu Landeros MD Active GLUCOSAMINE 500 MG TABS 2 po qd GLUCOSAMINE Active Tu Landeros MD Active SIMVASTATIN 40 MG TABS 0.5 po qHS SIMVASTATIN 54814256111 Active Tu Landeros MD Active FISH OIL 1000 MG CAPS 1 po qd OMEGA-3 FATTY ACIDS 57145873390 Active Tu Landeros MD Active METFORMIN HCL 1000 MG TABS 1 po BID METFORMIN HCL 85781158298 Active Tu Landeros MD Active KLOR-CON 10 10 MEQ CR-TABS 2 po qd POTASSIUM CHLORIDE 35871189791 Active Tu Landeros MD Active FUROSEMIDE 40 MG TAB 1 po qd FUROSEMIDE 44947239864 Active Tu Landeros MD Active REQUIP 2 MG ORAL TABS 1 po qHS PRN Restless legs ROPINIROLE HCL 13216781022 Active Tu Landeros MD Active VENLAFAXINE HCL 37.5 MG TABS 1 po BID VENLAFAXINE HCL 33867861148 Active Tu Landeros MD Active GABAPENTIN 100 MG CAPS 1 po BID GABAPENTIN 83830115176 Active Tu Landeros MD Active REQUIP 2 MG TABS Take one tablet at bedtime prn ROPINIROLE HCL 96943144943 No Longer Active Tu Landeros MD Active VENTOLIN HFA 108 (90 BASE) MCG/ACT AERS 1-2 puffs every 4 hours if needed for cough/congestion ALBUTEROL SULFATE 52749175387 No Longer Active Ambika Aden APRN Active ZITHROMAX 250 MG TAB 2 po today, then 1 po q days 2-5 AZITHROMYCIN 82497234044 No Longer Active Miranda Suresh APRN Active FLONASE 50 MCG/ACT SUSP 1 spray each nostril twice daily until bottle empty FLUTICASONE PROPIONATE 66321875857 No Longer Active Tu Landeros MD Active COLACE 100 MG CAP 1 po BID PRN Constipation DOCUSATE SODIUM 05761531396 Active Tu Landeros MD Active TRUERESULT BLOOD GLUCOSE W/DEVICE KIT test blood sugar twice daily dx 250.00 BLOOD GLUCOSE MONITORING SUPPL 81520062996 No Longer Active Tu Landeros MD Active TRUEDRAW LANCING DEVICE MISC Test twice a day dx 250.0 LANCET DEVICES 58963747471 No Longer Active Tu Landeros MD Active PREDNISONE 20 MG TAB 2 tablets once daily for 2 days, then 1 tablet once daily for 2 days PREDNISONE 78411626608 No Longer Active Tu Landeros MD Active DICLOFENAC SODIUM 50 MG TBEC 1 tablet by mouth three times a day as needed DICLOFENAC SODIUM 15757285989 No Longer Active Fab Morales DO Active EMBRACE BLOOD GLUCOSE TEST STRP test blood sugar twice daily DX 250.0 2014 GLUCOSE BLOOD 09600085475 No Longer Active Tu Landeros MD Active TRUETEST TEST STRP test blood sugar three times daily dx: 250.00 GLUCOSE BLOOD 72550305648 No Longer Active Suzebianca VOGEL Active TRUERESULT BLOOD GLUCOSE W/DEVICE KIT use to test blood sugar tid dx: 250.00 BLOOD GLUCOSE MONITORING SUPPL 46047173642 No Longer Active Suze Corey VOGEL Active ALIGN 4 MG CAPS 1 tid PROBIOTIC PRODUCT 41464320177 No Longer Active Shaun Sy MD Active CIPRO 500 MG TABS 1 bid x 14 days start 09-28-13 CIPROFLOXACIN HCL 99000769116 No Longer Active Shaun Sy MD Active TRAMADOL HCL 50 MG TABS 1-2 tablets every 6 hours as needed for pain TRAMADOL HCL 21547023678 Active Lesli Kellogg APRN Active HYDROCODONE-ACETAMINOPHEN 5-325 MG TABS 1 tab by mouth every 6 hours as needed for pain HYDROCODONE-ACETAMINOPHEN 28978094193 No Longer Active Tu Landeros MD Active OMEPRAZOLE 20 MG CPDR 1 po q a.m. OMEPRAZOLE 96033096796 Active Lesli Fatumashahid PATEL Active GABAPENTIN 100 MG CAPS 1 po bid GABAPENTIN 40276342300 No Longer Active Tu Landeros MD Active B-12 100 MCG TABS Take one by mouth daily CYANOCOBALAMIN 56285913012 No Longer Active Tu Landeros MD Active BACTRIM DS 800-160 MG TABS 1 bid x 14 day start 09-28-13 SULFAMETHOXAZOLE-TRIMETHOPRIM 19785599999 No Longer Active Tu Landeros MD Active CARVEDILOL 12.5 MG TABS 1 po BID CARVEDILOL 21454388015 Active Tu Landeros MD Active TRILIPIX 135 MG CPDR 1 q hs CHOLINE FENOFIBRATE 41181273359 Active Tu Landeros MD Active FENOFIBRATE 145 MG TABS 1 po qd FENOFIBRATE 54112520546 No Longer Active JASPREET Perez Active OMEPRAZOLE 20 MG TBEC 1 PO 30 MIN BEFORE 1ST MEAL OMEPRAZOLE 33303411603 No Longer Active JASPREET Perez Active SIMVASTATIN 40 MG TABS Take one by mouth daily SIMVASTATIN 30731871801 No Longer Active JASPREET Perez Active VENLAFAXINE HCL 75 MG TABS 1 po BID VENLAFAXINE HCL 67722608796 No Longer Active JASPREET Perez Active CIPRO 500 MG TAB 1 tablet by mouth twice daily CIPROFLOXACIN HCL 51999808783 No Longer Active Tu Landeros MD Active VENLAFAXINE HCL 37.5 MG TABS 1 po BID VENLAFAXINE HCL 48538892360 No Longer Active Suze VOGEL Active LAMISIL 250 MG TAB 1 po qd TERBINAFINE HCL 89900826691 No Longer Active Tu Landeros MD Active LORTAB 5 5-500 MG TABS 1/2 to 1 tablet by mouth every 4 hours as needed for pain HYDROCODONE-ACETAMINOPHEN 90943551563 No Longer Active Tu Landeros MD Active HYDROCODONE-ACETAMINOPHEN 5-500 MG TABS take one po Q 4-6 hours prn HYDROCODONE-ACETAMINOPHEN 95477389977 No Longer Active Tu Landeros MD Active BACTRIM DS 800-160 MG TABS 1 po BID x 7 days SULFAMETHOXAZOLE-TRIMETHOPRIM 27595265404 No Longer Active Tu Landeros MD Active VENLAFAXINE HCL 75 MG TABS 1 po BID VENLAFAXINE HCL 28838491859 No Longer Active Elvira Cervantes MD PhD Active TRAMADOL HCL 50 MG TABS 1 tablets every 6 hours as needed for pain TRAMADOL HCL 72232119170 No Longer Active Tu Landeros MD Active ACCU-CHEK FASTCLIX LANCETS MISC Use to check bloodsugar three times daily as needed LANCETS 46884214306 No Longer Active Tu Landeros MD Active ACCU-CHEK KEYONA PLUS STRP Use for testing bloodsugars three times daily as needed GLUCOSE BLOOD 25176031328 No Longer Active Tu Landeros MD Active ACCU-CHEK KEYONA PLUS W/DEVICE KIT Use for testing bloodsugars three times daily as needed BLOOD GLUCOSE MONITORING SUPPL 30110913627 No Longer Active Tu Landeros MD Active SPIRONOLACTONE 25 MG TAB 0.5 tablet by mouth daily SPIRONOLACTONE 86165696668 No Longer Active Tu Landeros MD Active ALPRAZOLAM 0.5 MG TABS 1 tab every 6hrs as needed ALPRAZOLAM 93371665627 No Longer Active Tu Landeros MD Active AUGMENTIN 875-125 MG TAB 1 tab by mouth twice daily with food AMOXICILLIN-POT CLAVULANATE 86761953801 No Longer Active Tu Landeros MD Active PREDNISONE 20 MG TAB 2 tabs daily for 3 days, 1 tab daily for 3 days, 1/2 tab daily for 2 days PREDNISONE 23287074879 No Longer Active Tu Landeros MD Active XANAX 0.5 MG TABS 1 tablet every 6 hrs prn ALPRAZOLAM 40745211199 No Longer Active Tu Landeros MD Active PREDNISONE 20 MG TAB 2 tabs daily for 3 days, 1 tab daily for 3 days, 1/2 tab daily for 2 days PREDNISONE 30776735866 No Longer Active Tu Landeros MD Active TRIAMCINOLONE ACETONIDE 0.1 % OINT Apply to affected areas TID for up to 2 weeks TRIAMCINOLONE ACETONIDE 50737785299 No Longer Active Tu Landeros MD Active LORTAB 5 5-500 MG TABS 1/2 to 1 tablet by mouth every 4 hours as needed for pain HYDROCODONE-ACETAMINOPHEN 27114069104 No Longer Active Tu Landeros MD Active MULTIVITAMINS TABS Take one by mouth daily MULTIPLE VITAMIN 91791015628 No Longer Active Tu Landeros MD Active MELATONIN 5 MG TABS Take one by mouth daily MELATONIN 36897094200 No Longer Active Tu Landeros MD Active SOMA 350 MG TAB 1 po q 6 hours prn spasm CARISOPRODOL 97783312152 No Longer Active Tu Landeros MD Active MECLIZINE HCL 25 MG CHEW TAB 1 four times a day as needed for dizziness 08/05 MECLIZINE HCL 61289268172 No Longer Active Fab Morales DO Active ANGEL BREEZE 2 TEST DISK test tid prn GLUCOSE BLOOD 34871284076 No Longer Active Negra Scott RN Active REGLAN 10 MG TAB 1 po TID PRN Nausea METOCLOPRAMIDE HCL 16259170182 No Longer Active Tu Landeros MD Active METFORMIN HCL 500 MG TABS 1 PO BID METFORMIN HCL 71115823322 No Longer Active Tu Landeros MD Active AMBIEN 10 MG TAB 1 tab by mouth at bedtime as needed for sleep ZOLPIDEM TARTRATE 99454309467 No Longer Active Tu Landeros MD Active FLUOXETINE HCL 40 MG CAPS 1 po q day FLUOXETINE HCL 19257130804 No Longer Active Mayra Terry Active TRILIPIX 135 MG CPDR 1 po qd CHOLINE FENOFIBRATE 26019431254 No Longer Active Tu Landeros MD Active AMBIEN 10 MG TAB 1 tab by mouth at bedtime as needed for sleep AMBIEN 10 MG TAB 996149 ZOLPIDEM TARTRATE Inactive METFORMIN HCL 500 MG TABS 1 PO BID METFORMIN HCL 500 MG TABS 712238 METFORMIN HCL Inactive REGLAN 10 MG TAB 1 po TID PRN Nausea REGLAN 10 MG TAB 313363 METOCLOPRAMIDE HCL Inactive MECLIZINE HCL 25 MG CHEW TAB 1 four times a day as needed for dizziness 08/05 MECLIZINE HCL 25 MG CHEW TAB 384175 MECLIZINE HCL Inactive SOMA 350 MG TAB 1 po q 6 hours prn spasm SOMA 350 MG TAB 605442 CARISOPRODOL Inactive MELATONIN 5 MG TABS Take one by mouth daily MELATONIN 5 MG TABS 159127 MELATONIN Inactive MULTIVITAMINS TABS Take one by mouth daily MULTIVITAMINS TABS MULTIPLE VITAMIN Inactive LORTAB 5 5-500 MG TABS 1/2 to 1 tablet by mouth every 4 hours as needed for pain LORTAB 5 5-500 MG TABS HYDROCODONE- ACETAMINOPHEN Inactive XANAX 0.5 MG TABS 1 tablet every 6 hrs prn XANAX 0.5 MG TABS 231801 ALPRAZOLAM Inactive AUGMENTIN 875-125 MG TAB 1 tab by mouth twice daily with food AUGMENTIN 875-125 MG TAB 357148 AMOXICILLIN-POT CLAVULANATE Inactive ALPRAZOLAM 0.5 MG TABS 1 tab every 6hrs as needed ALPRAZOLAM 0.5 MG TABS 754781 ALPRAZOLAM Inactive SPIRONOLACTONE 25 MG TAB 0.5 tablet by mouth daily SPIRONOLACTONE 25 MG TAB 229878 SPIRONOLACTONE Inactive ACCU-CHEK KEYONA PLUS W/DEVICE KIT Use for testing bloodsugars three times daily as needed ACCU-CHEK KEYONA PLUS W/DEVICE KIT BLOOD GLUCOSE MONITORING SUPPL Inactive ACCU-CHEK KEOYNA PLUS STRP Use for testing bloodsugars three times daily as needed ACCU-CHEK KEYONA PLUS STRP GLUCOSE BLOOD Inactive ACCU-CHEK FASTCLIX LANCETS MISC Use to check bloodsugar three times daily as needed ACCU-CHEK FASTCLIX LANCETS MISC 82475253404 LANCETS Inactive TRAMADOL HCL 50 MG TABS 1 tablets every 6 hours as needed for pain TRAMADOL HCL 50 MG TABS 629982 TRAMADOL HCL Inactive VENLAFAXINE HCL 75 MG TABS 1 po BID VENLAFAXINE HCL 75 MG TABS 072188 VENLAFAXINE HCL Inactive HYDROCODONE-ACETAMINOPHEN 5-500 MG TABS take one po Q 4-6 hours prn HYDROCODONE-ACETAMINOPHEN 5-500 MG TABS HYDROCODONE- ACETAMINOPHEN Inactive LORTAB 5 5-500 MG TABS 1/2 to 1 tablet by mouth every 4 hours as needed for pain LORTAB 5 5-500 MG TABS HYDROCODONE- ACETAMINOPHEN Inactive LAMISIL 250 MG TAB 1 po qd LAMISIL 250 MG TAB 873638 TERBINAFINE HCL Inactive VENLAFAXINE HCL 37.5 MG TABS 1 po BID VENLAFAXINE HCL 37.5 MG TABS 836351 VENLAFAXINE HCL Inactive CIPRO 500 MG TAB 1 tablet by mouth twice daily CIPRO 500 MG TAB 431674 CIPROFLOXACIN HCL Inactive VENLAFAXINE HCL 75 MG TABS 1 po BID VENLAFAXINE HCL 75 MG TABS 850181 VENLAFAXINE HCL Inactive SIMVASTATIN 40 MG TABS Take one by mouth daily SIMVASTATIN 40 MG TABS 956945 SIMVASTATIN Inactive OMEPRAZOLE 20 MG TBEC 1 PO 30 MIN BEFORE 1ST MEAL OMEPRAZOLE 20 MG TBEC 658906 OMEPRAZOLE Inactive FENOFIBRATE 145 MG TABS 1 po qd FENOFIBRATE 145 MG TABS 127016 FENOFIBRATE Inactive BACTRIM DS 800-160 MG TABS 1 bid x 14 day start 09-28-13 BACTRIM DS 800-160 MG TABS 374880 SULFAMETHOXAZOLE-TRIMETHOPRIM Inactive B-12 100 MCG TABS Take one by mouth daily B-12 100 MCG TABS CYANOCOBALAMIN Inactive GABAPENTIN 100 MG CAPS 1 po bid GABAPENTIN 100 MG CAPS 472001 GABAPENTIN Inactive HYDROCODONE-ACETAMINOPHEN 5-325 MG TABS 1 tab by mouth every 6 hours as needed for pain HYDROCODONE-ACETAMINOPHEN 5-325 MG TABS 508070 HYDROCODONE-ACETAMINOPHEN Inactive CIPRO 500 MG TABS 1 bid x 14 days start 09-28-13 CIPRO 500 MG TABS 584196 CIPROFLOXACIN HCL Inactive ALIGN 4 MG CAPS [...] day as needed DICLOFENAC SODIUM 50 MG [facility] 361874 DICLOFENAC SODIUM Inactive PREDNISONE 20 MG TAB 2 tablets once daily for 2 days, then 1 tablet once daily for 2 days PREDNISONE 20 MG TAB 361683 PREDNISONE Inactive TRUEDRAW LANCING DEVICE MISC Test twice a day dx 250.0 TRUEDRAW LANCING DEVICE MISC LANCET DEVICES Inactive TRUERESULT BLOOD GLUCOSE W/DEVICE KIT test blood sugar twice daily dx 250.00 TRUERESULT BLOOD GLUCOSE W/DEVICE KIT BLOOD GLUCOSE MONITORING SUPPL Inactive FLONASE 50 MCG/ACT SUSP 1 spray each nostril twice daily until bottle empty FLONASE 50 MCG/ACT SUSP 4083166 FLUTICASONE PROPIONATE Inactive VENTOLIN HFA 108 (90 BASE) MCG/ACT AERS 1-2 puffs every 4 hours if needed for cough/congestion VENTOLIN HFA 108 (90 BASE) MCG/ACT AERS ALBUTEROL SULFATE Inactive REQUIP 2 MG TABS Take one tablet at bedtime prn REQUIP 2 MG TABS 428975 ROPINIROLE HCL Inactive SUPER B COMPLEX/VITAMIN C TABS 1 qd SUPER B COMPLEX/ VITAMIN C TABS 30554417675 B COMPLEX-C Inactive TRUEDRAW LANCING DEVICE MISC test blood sugar twice daily dx: 250.00 TRUEDRAW LANCING DEVICE MISC LANCET DEVICES Inactive TRUETEST TEST INVITR STRP test blood sugar twice daily. DX 250.0 TRUETEST TEST INVITR STRP GLUCOSE BLOOD Inactive TRIAMCINOLONE ACETONIDE 0.1 % OINT Apply to affected areas TID for up to 2 weeks TRIAMCINOLONE ACETONIDE 0.1 % OINT 8617166 TRIAMCINOLONE ACETONIDE Inactive PREDNISONE 20 MG TAB 2 tabs daily for 3 days, 1 tab daily for 3 days, 1/2 tab daily for 2 days PREDNISONE 20 MG TAB 461267 PREDNISONE Inactive PREDNISONE 20 MG TAB 2 tabs daily for 3 days, 1 tab daily for 3 days, 1/2 tab daily for 2 days PREDNISONE 20 MG TAB 119121 PREDNISONE Inactive BACTRIM DS 800-160 MG TABS 1 po BID x 7 days BACTRIM DS 800-160 MG TABS 471290 SULFAMETHOXAZOLE-TRIMETHOPRIM Inactive ZITHROMAX 250 MG TAB 2 po today, then 1 po q days 2-5 ZITHROMAX 250 MG TAB 3042832 AZITHROMYCIN Inactive Advance Directives Directive Description Start Date DISCUSSED WITH PATIENT -- NO DECISION MADE Immunizations Vaccine Administration Date Value Standard Description Seasonal influenza vaccine, injectable, containing preservative, for > 3 years old (Afluria, FluLaval, Fluzone, Fluvirin, Fluarix, Agriflu(>=18 yo)) Fluzone (>3 yrs.) [[id number]] Influenza, seasonal, injectable influenza immunization (Flu Vax) has been administered 02/22/2012 influenza virus vaccine, unspecified formulation Seasonal influenza vaccine, injectable, containing preservative, for > 3 years old (Afluria, FluLaval, Fluzone, Fluvirin, Fluarix, Agriflu(>=18 yo)) Fluzone (>3 yrs.) [[id number]] Influenza, seasonal, injectable Vital Signs Date Name [...] % 11.6-14.8 platelet count 279 10^3/MM^3 10*3/mm3 122-021 1810/01/10 erythrocyte (RBC) count 4.58 10^6/MM^3 10*6/mm3 4.04-5.48 hemoglobin, blood 13.7 g/dL 12.0-16.0 hematocrit, blood 41.2 % 36.0-46.0 mean corpuscular volume, RBC 90 fL 80-97 mean corpuscular hemoglobin, RBC 29.9 pg 27.0-31.2 Lab Report: Comp. Metabolic Panel, Lipid Panel, Magnesium - Chemistry sodium, serum 143 mmol/L 531-489 0979/01/10 carbon dioxide, venous blood 28.0 mmol/L 21.0-32.0 potassium, serum 4.5 mmol/L 3.5-5.2 chloride, serum 104 mmol/L 98-107 blood glucose 158 mg/dL 65-110 urea nitrogen, blood 23 mg/dL 7-18 creatinine, serum 1.06 mg/dL 0.55-1.30 alanine aminotransferase (SGPT), serum 42 U/L 12-78 aspartate aminotransferase (SGOT), serum 32 U/L 15-37 calcium, serum 9.3 mg/dL 8.5-10.1 bilirubin, serum, total 0.20 mg/dL 0.00-1.00 cholesterol, serum 177 mg/dL 268-706 3377/01/10 triglyceride, serum, fasting 320 mg/dL 30-200 HDL cholesterol, serum 46 mg/dL 32-96 LDL cholesterol, serum 67 mg/dL 0-130 Lab Report: COMPREHENSIVE METABOLIC PANEL, LIPID PANEL, HEMOGLOBIN A1c - Chemistry cholesterol, serum 135 mg/dL 718-498 7938/05/17 HDL cholesterol, serum 41 mg/dL > OR=46 [...] 4.3 mmol/L 3.5-5.2 sodium, serum 140 mmol/L 213-635 5133/09/07 hemoglobin A1C, blood, as % of total hemoglobin 7.4 % 4.3-6.0 Lab Report: MicroAlb Random w/creat/6517 - Urinalysis microalbumin/total urine volume 21 mg/L Units converted. See lab report for original value. microalbumin/creatinine ratio, urine 11 MCG/MG CREAT mg/L <30 Encounters Code Encounter Date Provider Facility CPT-93285 Level 4 Est. Patient 09:08:17 [employer] Tu Landeros MD [facility] CPT-50575 Level 4 Est. Patient 14:40:19 CDT Tu Landeros MD [facility] CPT-30911 Level 4 Est. Patient 14:06:04 [employer] Tu Landeros MD [facility] CPT-60369 Level 3 Est. Patient 14:05:18 [employer] Tu Landeros MD [facility] CPT-40612 Level 3 Est. Patient 10:06:54 [employer] Miranda Suresh APRN [facility] CPT-61825 Level 4 Est. Patient 13:50:18 [employer] Tu Landeros MD [facility] CPT-42155 Level 3 Est. Patient 10:30:04 CDT Tu Landeros MD [facility] CPT-44614 Level 4 Est. Patient 11:03:38 CDT Tu Landeros MD [facility] CPT-59688 Level 3 Est. Patient 10:20:44 CDT Fab Morales DO [facility] CPT-14380 Level 4 Est. Patient 14:38:57 CDT Tu Landeros MD [facility] CPT-40167 Level 4 Est. Patient 14:27:39 [employer] Tu Landeros MD [facility] CPT-10800 Level 4 Est. Patient 09:45:25 CDT Tu Landeros MD [facility] CPT-69710 Level 4 Est. Patient 09:05:20 [employer] Tu Lanedros MD [facility] CPT-77530 Level 4 Est. Patient 14:09:06 CDT Tu Landeros MD [facility] CPT-56745 Level 3 Est. Patient 13:36:54 CDT Tu Landeros MD [facility] CPT-39957 Level 3 Est. Patient 08:59:14 CDT Tu Landeros MD [facility] CPT-88339 Level 3 Est. Patient 13:48:35 CDT Fab Morales DO [facility] CPT-69259 Level 4 Est. Patient 10:05:48 CDT Tu Landeros MD [facility] CPT-31208 Level 3 Est. Patient 13:38:42 CDT Marek BANKS [facility] CPT-86177 Level 5 Est. Patient 08:08:39 CDT Jerrica FRANCIS [facility] CPT-69780 Level 4 Est. Patient 14:23:38 CDT Tu Landeros MD [facility] CPT-94811 Level 3 Est. Patient 11:44:04 CDT Tu Landeros MD [facility] CPT-80004 Level 3 Est. Patient 11:03:20 [employer] Tu Landeros MD [facility] CPT-28694 Level 3 Est. Patient 11:03:14 [employer] Tu Landeros MD [facility] CPT-02213 Level 3 Est. Patient 12:42:49 CDT Tu Landeros MD [facility] CPT-01280 Level 3 Est. Patient 11:52:06 CDT Tu Landeros MD [facility] CPT-89841 Level 3 Est. Patient 13:58:11 CDT Tu Landeros MD [facility] CPT-62133 Level 3 Est. Patient 17:50:07 CDT Fab Morales DO [facility] CPT-87946 Level 3 Est. Patient 12:06:29 CDT Elvira Cervantes MD PhD [facility] CPT-12683 Level 3 Est. Patient 15:50:32 CDT Tu Landeros MD [facility] CPT-43301 Level 4 Est. Patient 16:08:29 CDT Tu Landeros MD [facility] CPT-47625 Level 3 Est. Patient 16:04:19 CDT Tu Landeros MD [facility] CPT-91492 Level 3 Est. Patient 11:22:30 [employer] Tu Landeros MD [facility] CPT-04573 Level 4 Est. Patient 16:24:02 [employer] Tu Landeros MD [facility] CPT-36872 Level 3 Est. Patient 17:21:23 [employer] Tu Landeros MD [facility] Procedures Code Procedure Name Date Entry Date Standard Description CPT-29735 Venipuncture Draw Fee 13:15:35 CDT CPT-74687 Magnesium - LAB USE ONLY 11:14:20 [employer] CPT-46891 Lipid - LAB USE ONLY 11:14:20 [employer] CPT-52546 HGBA1C - LAB USE ONLY 11:14:20 [employer] CPT-60368 CMP - LAB USE ONLY 11:14:19 [employer] CPT-02315 CBC - LAB USE ONLY 11:14:19 [employer] CPT-05744 Venipuncture Draw Fee 11:14:18 [employer] CPT-46424 First Vx - Ix admin for Medicare patients 16:46:52 CDT CPT-92171 Fluzone Preservative Free Intramuscular Suspension 16:46 :51 CDT CPT-38980 CBC - LAB USE ONLY 17:14:46 CDT CPT-52934 HGBA1C - LAB USE ONLY 17:14:46 CDT CPT-80381 Venipuncture Draw Fee 17:14:46 CDT CPT-G0438 Initial Annual Wellness Exam 14:13:04 CDT CPT-71169 Breathing Tx 10:06:54 [employer] CPT-80961 Postop F/U Visit 10:02:45 CDT CPT-LR Lesion Removal 09:02:56 CDT CPT-JTINJ Asp/Joint Injection 15:51:27 [employer] CPT-OV Office Visit 15:52:02 [employer] CPT-OV Office Visit 15:45:11 CDT CPT-000 Give Zostavax 14:09:06 CDT CPT-86990 Administration single or combination vaccine inc oral 15 :19:04 CDT CPT-73756 Zoster Vaccine (Zostavax) 15:19:04 CDT CPT-18389 Administration single or combination vaccine inc oral 20 :51:03 CDT CPT-60995 Influenza split virus > age 3 20:51:03 CDT CPT-22838 No Charge Offi Visit 14:52:03 CDT CPT-OV Office Visit 14:57:43 CDT CPT-OV Office Visit 15:22:32 CDT CPT-72083 Administration single or combination vaccine inc oral 11 :33:15 CDT CPT-04744 Influenza split virus > age 3 11:33:15 CDT
--- OUTSIDE RECORDS SUMMARY | 2018-04-25 14:23 | XMS REPORT | Clinical Summary ---
Author Author Admin, SACHI Organization [employer] Address Unknown Phone Unavailable Allergies, Adverse Reactions, [...] po TID PRN Muscle Spasm CYCLOBENZAPRINE HCL 41132729970 Active Tu Landeros MD Active DICLOFENAC SODIUM 50 MG ORAL TBEC 1 po BID PRN Pain DICLOFENAC SODIUM 29395957562 Delores Landeros MD Active INVOKANA 100 MG ORAL TABS 1 po qd CANAGLIFLOZIN 08705355798 Active Tu Landeros MD Active GLIPIZIDE 5 MG ORAL TABS 1 po qd GLIPIZIDE 40139202111 No Longer Active Tu Landeros MD Active VENLAFAXINE HCL 75 MG ORAL TABS 1 po BID VENLAFAXINE HCL 24379141074 Active Tu Landeros MD Active GLIMEPIRIDE 1 MG ORAL TABS 1 po qd GLIMEPIRIDE 88088114337 No Longer Active Tu Landeros MD Active TRUE METRIX BLOOD GLUCOSE TEST INVITR STRP Test blood sugar BID Dx: E11.9 GLUCOSE BLOOD 00982794651 Active Tu Landeros MD Active TRUE METRIX AIR GLUCOSE METER W/DEVICE KIT Test blood glucose BID Dx: E11.9 BLOOD GLUCOSE MONITORING SUPPL 35269469425 Active Tu Landeros MD Active TRUETEST TEST INVITR STRP test blood sugar twice daily. DX 250.0 GLUCOSE BLOOD 40429991493 No Longer Active Mirna Stanley LPN Active TRUEDRAW LANCING DEVICE MISC test blood sugar twice daily dx: 250.00 LANCET DEVICES 04415154009 No Longer Active Mirna Stanley LPN Active ENALAPRIL MALEATE 20 MG TABS 2 po qd ENALAPRIL MALEATE 64571469908 Active Tu Landeros MD Active SUPER B COMPLEX/VITAMIN C TABS 1 qd B COMPLEX-C 75427456158 No Longer Active Tu Landeros MD Active ASPIRIN EC 81 MG ORAL TBEC 1 po qd ASPIRIN 13087080422 Active Tu Landeros MD Active GLUCOSAMINE 500 MG TABS 2 po qd GLUCOSAMINE Active Tu Landeros MD Active SIMVASTATIN 40 MG TABS 0.5 po qHS SIMVASTATIN 85598829103 Active Tu Landeros MD Active FISH OIL 1000 MG CAPS 1 po qd OMEGA-3 FATTY ACIDS 47102956187 Active Tu Landeros MD Active METFORMIN HCL 1000 MG TABS 1 po BID METFORMIN HCL 56762294138 Active Tu Landeros MD Active KLOR-CON 10 10 MEQ CR-TABS 2 po qd POTASSIUM CHLORIDE 54188555929 Active Tu Landeros MD Active FUROSEMIDE 40 MG TAB 1 po qd FUROSEMIDE 78085024427 Active Tu Landeros MD Active REQUIP 2 MG ORAL TABS 1 po qHS PRN Restless legs ROPINIROLE HCL 88976324416 Active Tu Landeros MD Active GABAPENTIN 100 MG CAPS 1 po BID GABAPENTIN 86776537289 Active Tu Landeros MD Active REQUIP 2 MG TABS Take one tablet at bedtime prn ROPINIROLE HCL 75535956646 No Longer Active Tu Landeros MD Active VENTOLIN HFA 108 (90 BASE) MCG/ACT AERS 1-2 puffs every 4 hours if needed for cough/congestion ALBUTEROL SULFATE 07837546842 No Longer Active Ambika Aden APRN Active ZITHROMAX 250 MG TAB 2 po today, then 1 po q days 2-5 AZITHROMYCIN 10907386868 No Longer Active Miranda Suresh APRN Active FLONASE 50 MCG/ACT SUSP 1 spray each nostril twice daily until bottle empty FLUTICASONE PROPIONATE 24322478968 No Longer Active Tu Landeros MD Active COLACE 100 MG CAP 1 po BID PRN Constipation DOCUSATE SODIUM 87446792332 Active Tu Landeros MD Active TRUERESULT BLOOD GLUCOSE W/DEVICE KIT test blood sugar twice daily dx 250.00 BLOOD GLUCOSE MONITORING SUPPL 64553391347 No Longer Active Tu Landeros MD Active TRUEDRAW LANCING DEVICE MISC Test twice a day dx 250.0 LANCET DEVICES 13462773626 No Longer Active Tu Landeros MD Active PREDNISONE 20 MG TAB 2 tablets once daily for 2 days, then 1 tablet once daily for 2 days PREDNISONE 41819382228 No Longer Active uT Landeros MD Active DICLOFENAC SODIUM 50 MG TBEC 1 tablet by mouth three times a day as needed DICLOFENAC SODIUM 80166256547 No Longer Active Fab W Andrew DO Active EMBRACE BLOOD GLUCOSE TEST STRP test blood sugar twice daily DX 250.0 2014 GLUCOSE BLOOD 85080162086 No Longer Active Tu Landeros MD Active TRUETEST TEST STRP test blood sugar three times daily dx: 250.00 GLUCOSE BLOOD 86898334159 No Longer Active Suze VOGEL Active TRUERESULT BLOOD GLUCOSE W/DEVICE KIT use to test blood sugar tid dx: 250.00 BLOOD GLUCOSE MONITORING SUPPL 37562793650 No Longer Active Suze Hardenehart RMA Active ALIGN 4 MG CAPS 1 tid PROBIOTIC PRODUCT 67297508302 No Longer Active Shaun Sy MD Active CIPRO 500 MG TABS 1 bid x 14 days start 09-28-13 CIPROFLOXACIN HCL 77642524429 No Longer Active Shaun Sy MD Active TRAMADOL HCL 50 MG TABS 1-2 tablets every 6 hours as needed for pain TRAMADOL HCL 97891949202 Active Tu Landeros MD Active HYDROCODONE-ACETAMINOPHEN 5-325 MG TABS 1 tab by mouth every 6 hours as needed for pain HYDROCODONE-ACETAMINOPHEN 45544618470 No Longer Active Tu Landeros MD Active OMEPRAZOLE 20 MG CPDR 1 po q a.m. OMEPRAZOLE 45863263984 Active Lesli Kellogg APRN Active GABAPENTIN 100 MG CAPS 1 po bid GABAPENTIN 69499515698 No Longer Active Tu Landeros MD Active B-12 100 MCG TABS Take one by mouth daily CYANOCOBALAMIN 70365107590 No Longer Active Tu Landeros MD Active BACTRIM DS 800-160 MG TABS 1 bid x 14 day start 09-28-13 SULFAMETHOXAZOLE-TRIMETHOPRIM 40418983481 No Longer Active Tu Landeros MD Active CARVEDILOL 12.5 MG TABS 1 po BID CARVEDILOL 83506202137 Active Tu Landeros MD Active TRILIPIX 135 MG CPDR 1 q hs CHOLINE FENOFIBRATE 64469755799 Active Tu Landeros MD Active FENOFIBRATE 145 MG TABS 1 po qd FENOFIBRATE 10422330128 No Longer Active JASPREET Perez Active OMEPRAZOLE 20 MG TBEC 1 PO 30 MIN BEFORE 1ST MEAL OMEPRAZOLE 36402151150 No Longer Active JASPREET Perez Active SIMVASTATIN 40 MG TABS Take one by mouth daily SIMVASTATIN 21344699568 No Longer Active JASPREET Perez Active VENLAFAXINE HCL 75 MG TABS 1 po BID VENLAFAXINE HCL 43975336877 No Longer Active JASPREET Perez Active CIPRO 500 MG TAB 1 tablet by mouth twice daily CIPROFLOXACIN HCL 98026419912 No Longer Active Tu Landeros MD Active VENLAFAXINE HCL 37.5 MG TABS 1 po BID VENLAFAXINE HCL 02031828449 No Longer Active Suze Nicole [facility] Active LAMISIL 250 MG TAB 1 po qd TERBINAFINE HCL 32179702639 No Longer Active Tu Landeros MD Active LORTAB 5 5-500 MG TABS 1/2 to 1 tablet by mouth every 4 hours as needed for pain HYDROCODONE-ACETAMINOPHEN 59380190342 No Longer Active Tu Landeros MD Active HYDROCODONE-ACETAMINOPHEN 5-500 MG TABS take one po Q 4-6 hours prn HYDROCODONE-ACETAMINOPHEN 94429937933 No Longer Active Tu Landeros MD Active BACTRIM DS 800-160 MG TABS 1 po BID x 7 days SULFAMETHOXAZOLE-TRIMETHOPRIM 98745727621 No Longer Active Tu Landeros MD Active VENLAFAXINE HCL 75 MG TABS 1 po BID VENLAFAXINE HCL 23207887001 No Longer Active Elvira Cervantes MD PhD Active TRAMADOL HCL 50 MG TABS 1 tablets every 6 hours as needed for pain TRAMADOL HCL 31333832559 No Longer Active Tu Landeros MD Active ACCU-CHEK FASTCLIX LANCETS MISC Use to check bloodsugar three times daily as needed LANCETS 28209507882 No Longer Active Tu Landeros MD Active ACCU-CHEK KEYONA PLUS STRP Use for testing bloodsugars three times daily as needed GLUCOSE BLOOD 81519979817 No Longer Active Tu Landeros MD Active ACCU-CHEK KEYONA PLUS W/DEVICE KIT Use for testing bloodsugars three times daily as needed BLOOD GLUCOSE MONITORING SUPPL 34963749561 No Longer Active Tu Landeros MD Active SPIRONOLACTONE 25 MG TAB 0.5 tablet by mouth daily SPIRONOLACTONE 33082111068 No Longer Active Tu Landeros MD Active ALPRAZOLAM 0.5 MG TABS 1 tab every 6hrs as needed ALPRAZOLAM 78104393991 No Longer Active Tu Landeros MD Active AUGMENTIN 875-125 MG TAB 1 tab by mouth twice daily with food AMOXICILLIN-POT CLAVULANATE 35818765623 No Longer Active Tu Landeros MD Active PREDNISONE 20 MG TAB 2 tabs daily for 3 days, 1 tab daily for 3 days, 1/2 tab daily for 2 days PREDNISONE 96344710026 No Longer Active Tu Landeros MD Active XANAX 0.5 MG TABS 1 tablet every 6 hrs prn ALPRAZOLAM 89021966309 No Longer Active Tu Landeros MD Active PREDNISONE 20 MG TAB 2 tabs daily for 3 days, 1 tab daily for 3 days, 1/2 tab daily for 2 days PREDNISONE 82750945541 No Longer Active Tu Landeros MD Active TRIAMCINOLONE ACETONIDE 0.1 % OINT Apply to affected areas TID for up to 2 weeks TRIAMCINOLONE ACETONIDE 78357342689 No Longer Active Tu Landeros MD Active LORTAB 5 5-500 MG TABS 1/2 to 1 tablet by mouth every 4 hours as needed for pain HYDROCODONE-ACETAMINOPHEN 22121463918 No Longer Active Tu Landeros MD Active MULTIVITAMINS TABS Take one by mouth daily MULTIPLE VITAMIN 20007775318 No Longer Active Tu Landeros MD Active MELATONIN 5 MG TABS Take one by mouth daily MELATONIN 95376690909 No Longer Active Tu Landeros MD Active SOMA 350 MG TAB 1 po q 6 hours prn spasm CARISOPRODOL 45042176862 No Longer Active Tu Landeros MD Active MECLIZINE HCL 25 MG CHEW TAB 1 four times a day as needed for dizziness 08/05 MECLIZINE HCL 59303252647 No Longer Active Fab Morales DO Active ANGEL BREEZE 2 TEST DISK test tid prn GLUCOSE BLOOD 08357922191 No Longer Active Negra Scott RN Active REGLAN 10 MG TAB 1 po TID PRN Nausea METOCLOPRAMIDE HCL 18805481801 No Longer Active Tu Landeros MD Active METFORMIN HCL 500 MG TABS 1 PO BID METFORMIN HCL 42002279545 No Longer Active Tu Landeros MD Active AMBIEN 10 MG TAB 1 tab by mouth at bedtime as needed for sleep ZOLPIDEM TARTRATE 40673422181 No Longer Active Tu Landeros MD Active FLUOXETINE HCL 40 MG CAPS 1 po q day FLUOXETINE HCL 26167127180 No Longer Active Mayra [place] Active TRILIPIX 135 MG CPDR 1 po qd CHOLINE FENOFIBRATE 60881469406 No Longer Active Tu Landeros MD Active AMBIEN 10 MG TAB 1 tab by mouth at bedtime as needed for sleep AMBIEN 10 MG TAB 868989 ZOLPIDEM TARTRATE Inactive METFORMIN HCL 500 MG TABS 1 PO BID METFORMIN HCL 500 MG TABS 397959 METFORMIN HCL Inactive REGLAN 10 MG TAB 1 po TID PRN Nausea REGLAN 10 MG TAB 488857 METOCLOPRAMIDE HCL Inactive MECLIZINE HCL 25 MG CHEW TAB 1 four times a day as needed for dizziness 08/05 MECLIZINE HCL 25 MG CHEW TAB 851213 MECLIZINE HCL Inactive SOMA 350 MG TAB 1 po q 6 hours prn spasm SOMA 350 MG TAB 156223 CARISOPRODOL Inactive MELATONIN 5 MG TABS Take one by mouth daily MELATONIN 5 MG TABS 211820 MELATONIN Inactive MULTIVITAMINS TABS Take one by mouth daily MULTIVITAMINS TABS MULTIPLE VITAMIN Inactive LORTAB 5 5-500 MG TABS 1/2 to 1 tablet by mouth every 4 hours as needed for pain LORTAB 5 5-500 MG TABS HYDROCODONE- ACETAMINOPHEN Inactive XANAX 0.5 MG TABS 1 tablet every 6 hrs prn XANAX 0.5 MG TABS 178425 ALPRAZOLAM Inactive AUGMENTIN 875-125 MG TAB 1 tab by mouth twice daily with food AUGMENTIN 875-125 MG TAB 842506 AMOXICILLIN-POT CLAVULANATE Inactive ALPRAZOLAM 0.5 MG TABS 1 tab every 6hrs as needed ALPRAZOLAM 0.5 MG TABS 011666 ALPRAZOLAM Inactive SPIRONOLACTONE 25 MG TAB 0.5 tablet by mouth daily SPIRONOLACTONE 25 MG TAB 350702 SPIRONOLACTONE Inactive ACCU-CHEK KEYONA PLUS W/DEVICE KIT Use for testing bloodsugars three times daily as needed ACCU-CHEK KEYONA PLUS W/DEVICE KIT BLOOD GLUCOSE MONITORING SUPPL Inactive ACCU-CHEK KEYONA PLUS STRP Use for testing bloodsugars three times daily as needed ACCU-CHEK KEYONA PLUS STRP GLUCOSE BLOOD Inactive ACCU-CHEK FASTCLIX LANCETS MISC Use to check bloodsugar three times daily as needed ACCU-CHEK FASTCLIX LANCETS MISC 88752596573 [facility] Inactive TRAMADOL HCL 50 MG TABS 1 tablets every 6 hours as needed for pain TRAMADOL HCL 50 MG TABS 708185 TRAMADOL HCL Inactive VENLAFAXINE HCL 75 MG TABS 1 po BID VENLAFAXINE HCL 75 MG TABS 519389 VENLAFAXINE HCL Inactive HYDROCODONE-ACETAMINOPHEN 5-500 MG TABS take one po Q 4-6 hours prn HYDROCODONE-ACETAMINOPHEN 5-500 MG TABS HYDROCODONE- ACETAMINOPHEN Inactive LORTAB 5 5-500 MG TABS 1/2 to 1 tablet by mouth every 4 hours as needed for pain LORTAB 5 5-500 MG TABS HYDROCODONE- ACETAMINOPHEN Inactive LAMISIL 250 MG TAB 1 po qd LAMISIL 250 MG TAB 371495 TERBINAFINE HCL Inactive VENLAFAXINE HCL 37.5 MG TABS 1 po BID VENLAFAXINE HCL 37.5 MG TABS 885588 VENLAFAXINE HCL Inactive CIPRO 500 MG TAB 1 tablet by mouth twice daily CIPRO 500 MG TAB 244880 CIPROFLOXACIN HCL Inactive VENLAFAXINE HCL 75 MG TABS 1 po BID VENLAFAXINE HCL 75 MG TABS 013336 VENLAFAXINE HCL Inactive SIMVASTATIN 40 MG TABS Take one by mouth daily SIMVASTATIN 40 MG TABS 805610 SIMVASTATIN Inactive OMEPRAZOLE 20 MG TBEC 1 PO 30 MIN BEFORE 1ST MEAL OMEPRAZOLE 20 MG TBEC 168070 OMEPRAZOLE Inactive FENOFIBRATE 145 MG TABS 1 po qd FENOFIBRATE 145 MG TABS 766214 FENOFIBRATE Inactive BACTRIM DS 800-160 MG TABS 1 bid x 14 day start 09-28-13 BACTRIM DS 800-160 MG TABS 996446 SULFAMETHOXAZOLE-TRIMETHOPRIM Inactive B-12 100 MCG TABS Take one by mouth daily B-12 100 MCG TABS CYANOCOBALAMIN Inactive GABAPENTIN 100 MG CAPS 1 po bid GABAPENTIN 100 MG CAPS 117076 GABAPENTIN Inactive HYDROCODONE-ACETAMINOPHEN 5-325 MG TABS 1 tab by mouth every 6 hours as needed for pain HYDROCODONE-ACETAMINOPHEN 5-325 MG TABS 649765 HYDROCODONE-ACETAMINOPHEN Inactive CIPRO 500 MG TABS 1 bid x 14 days start 09-28-13 CIPRO 500 MG TABS 438519 CIPROFLOXACIN HCL Inactive ALIGN 4 MG CAPS [...] as needed DICLOFENAC SODIUM 50 MG TBEC 375241 DICLOFENAC SODIUM Inactive PREDNISONE 20 MG TAB 2 tablets once daily for 2 days, then 1 tablet once daily for 2 days PREDNISONE 20 MG TAB 352941 PREDNISONE Inactive TRUEDRAW LANCING DEVICE MISC Test twice a day dx 250.0 TRUEDRAW LANCING DEVICE MISC LANCET DEVICES Inactive TRUERESULT BLOOD GLUCOSE W/DEVICE KIT test blood sugar twice daily dx 250.00 TRUERESULT BLOOD GLUCOSE W/DEVICE KIT BLOOD GLUCOSE MONITORING SUPPL Inactive FLONASE 50 MCG/ACT SUSP 1 spray each nostril twice daily until bottle empty FLONASE 50 MCG/ACT SUSP 3741898 FLUTICASONE PROPIONATE Inactive VENTOLIN HFA 108 (90 BASE) MCG/ACT AERS 1-2 puffs every 4 hours if needed for cough/congestion VENTOLIN HFA 108 (90 BASE) MCG/ACT AERS ALBUTEROL SULFATE Inactive REQUIP 2 MG TABS Take one tablet at bedtime prn REQUIP 2 MG TABS 314663 ROPINIROLE HCL Inactive SUPER B COMPLEX/VITAMIN C TABS 1 qd SUPER B COMPLEX/ VITAMIN C TABS 92989408565 B COMPLEX-C Inactive TRUEDRAW LANCING DEVICE MISC test blood sugar twice daily dx: 250.00 TRUEDRAW LANCING DEVICE MISC LANCET DEVICES Inactive TRUETEST TEST INVITR STRP test blood sugar twice daily. DX 250.0 TRUETEST TEST INVITR STRP GLUCOSE BLOOD Inactive TRIAMCINOLONE ACETONIDE 0.1 % OINT Apply to affected areas TID for up to 2 weeks TRIAMCINOLONE ACETONIDE 0.1 % OINT 5177977 TRIAMCINOLONE ACETONIDE Inactive PREDNISONE 20 MG TAB 2 tabs daily for 3 days, 1 tab daily for 3 days, 1/2 tab daily for 2 days PREDNISONE 20 MG TAB 064270 PREDNISONE Inactive PREDNISONE 20 MG TAB 2 tabs daily for 3 days, 1 tab daily for 3 days, 1/2 tab daily for 2 days PREDNISONE 20 MG TAB 499159 PREDNISONE Inactive BACTRIM DS 800-160 MG TABS 1 po BID x 7 days BACTRIM DS 800-160 MG TABS 083521 SULFAMETHOXAZOLE-TRIMETHOPRIM Inactive ZITHROMAX 250 MG TAB 2 po today, then 1 po q days 2-5 ZITHROMAX 250 MG TAB 9630257 AZITHROMYCIN Inactive Advance Directives Directive Description Start Date DISCUSSED WITH PATIENT -- NO DECISION MADE Immunizations Vaccine Administration Date Value Standard Description Seasonal influenza vaccine, injectable, containing preservative, for > 3 years old (Afluria, FluLaval, Fluzone, Fluvirin, Fluarix, Agriflu(>=18 yo)) Fluzone (>3 yrs.) [[id number]] Influenza, seasonal, injectable influenza immunization (Flu Vax) has been administered 02/22/2012 influenza virus vaccine, unspecified formulation Seasonal influenza vaccine, injectable, containing preservative, for > 3 years old (Afluria, FluLaval, Fluzone, Fluvirin, Fluarix, Agriflu(>=18 yo)) Fluzone (>3 yrs.) [[id number]] Influenza, seasonal, injectable Vital Signs Date Name [...] Magnesium - Chemistry sodium, serum 143 mmol/L 088-926 1370/01/10 carbon dioxide, venous blood 28.0 mmol/L 21.0-32.0 potassium, serum 4.5 mmol/L 3.5-5.2 chloride, serum 104 mmol/L 98-107 blood glucose 158 mg/dL 65-110 urea nitrogen, blood 23 mg/dL 7-18 creatinine, serum 1.06 mg/dL 0.55-1.30 alanine aminotransferase (SGPT), serum 42 U/L 12-78 aspartate aminotransferase (SGOT), serum 32 U/L 15-37 calcium, serum 9.3 mg/dL 8.5-10.1 bilirubin, serum, total 0.20 mg/dL 0.00-1.00 cholesterol, serum 177 mg/dL 908-197 1187/01/10 triglyceride, serum, fasting 320 mg/dL 30-200 HDL cholesterol, serum 46 mg/dL 32-96 LDL cholesterol, serum 67 mg/dL 0-130 Lab Report: COMPREHENSIVE METABOLIC PANEL, LIPID PANEL, HEMOGLOBIN A1c - Chemistry cholesterol, serum 135 mg/dL 431-111 6326/05/17 HDL cholesterol, serum 41 mg/dL > OR=46 triglyceride, serum, fasting 206 mg/dL <150 LDL cholesterol, serum 53 MG/DL (CALC) mg/dL <130 cholesterol/HDL ratio, serum 3.3 (calc) < OR=5.0 Lab Report: HGBA1C - Chemistry hemoglobin A1C, blood, as % of total hemoglobin 7.4 % 4.3-6.0 sodium, serum 140 mmol/L 772-633 8820/09/07 potassium, serum 4.3 mmol/L 3.5-5.2 chloride, serum [...] <30 Encounters Code Encounter Date Provider Facility CPT-56670 Level 3 Est. Patient 13:33:09 CDT Tu Landeros MD [facility] CPT-95886 Level 4 Est. Patient 14:29:21 CDT Tu Landeros MD [facility] CPT-60158 Level 4 Est. Patient 09:08:17 [employer] Tu Landeros MD [facility] CPT-14367 Level 4 Est. Patient 14:40:19 CDT Tu Landeros MD [facility] CPT-42162 Level 4 Est. 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 Patient 14:05:18 [employer] Tu Landeros MD [facility] CPT-25561 Level 3 Est. Patient 10:06:54 [employer] Miranda Suresh APRN [facility] CPT-35990 Level 4 Est. 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 Patient 10:30:04 CDT Tu Landeros MD [facility] CPT-74806 Level 4 Est. Patient 11:03:38 CDT Tu Landeros MD [facility] CPT-71508 Level 3 Est. Patient 10:20:44 CDT Fab Morales DO [facility] CPT-77603 Level 4 Est. Patient 14:38:57 CDT Tu Landeros MD [facility] CPT-63357 Level 4 Est. 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 Patient 09:45:25 CDT Tu Landeros MD [facility] CPT-08476 Level 4 Est. 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 Patient 14:09:06 CDT Tu Landeros MD [facility] CPT-60671 Level 3 Est. Patient 13:36:54 CDT Tu Landeros MD [facility] CPT-34859 Level 3 Est. Patient 08:59:14 CDT Tu Landeros MD [facility] CPT-39669 Level 3 Est. Patient 13:48:35 CDT Fab Morales DO [facility] CPT-41488 Level 4 Est. Patient 10:05:48 CDT Tu Landeros MD [facility] CPT-75504 Level 3 Est. Patient 13:38:42 CDT Marek BANKS [facility] CPT-70894 Level 5 Est. Patient 08:08:39 CDT Jerrica FRANCIS [facility] CPT-30331 Level 4 Est. Patient 14:23:38 CDT Tu Landeros MD [facility] CPT-90149 Level 3 Est. Patient 11:44:04 CDT Tu Landeros MD [facility] CPT-81444 Level 3 Est. 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 Patient 11:03:14 GLASS [employer]ER Tu Landeros MD [facility] CPT-72137 Level 3 Est. Patient 12:42:49 CDT Tu Landeros MD [facility] CPT-45362 Level 3 Est. Patient 11:52:06 CDT Tu Landeros MD [facility] CPT-85113 Level 3 Est. Patient 13:58:11 CDT Tu Landeros MD [facility] CPT-71715 Level 3 Est. Patient 17:50:07 CDT Fab Morales DO [facility] CPT-39037 Level 3 Est. Patient 12:06:29 CDT Elvira Cervantes MD, PhD [facility] CPT-35186 Level 3 Est. Patient 15:50:32 CDT Tu Landeros MD [facility] CPT-02510 Level 4 Est. Patient 16:08:29 CDT Tu Landeros MD [facility] CPT-34778 Level 3 Est. Patient 16:04:19 CDT Tu Landeros MD [facility] CPT-50153 Level 3 Est. 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 Patient 17:21:23 GLASS [employer]ISHER Tu Landeros MD [facility] Procedures Code Procedure Name Date Entry Date Standard Description CPT-33056 Shoulder, right, comp min 2V - XRAY USE ONLY 13:50:22 CDT CPT-G0009 Administration of Pneumococcal Vaccine 15:08:26 CDT CPT-52207 Prevnar 13 Intramuscular Suspension 15:08:26 CDT 10/08 CPT-G0439 Subsequent Annual Wellness Exam 14:29:22 CDT CPT-51046 Venipuncture Draw Fee 13:15:35 CDT CPT-93855 Magnesium - LAB USE ONLY 11:14:20 [employer]ASS [employer]ER CPT-43534 Lipid - LAB USE ONLY 11:14:20 GLASS POL[employer]ER CPT-70177 HGBA1C - LAB USE ONLY 11:14:20 GLASS POL[employer]ER CPT-29676 CMP - LAB USE ONLY 11:14:19 [employer]ASS [employer]ER CPT-89467 CBC - LAB USE ONLY 11:14:19 [employer]ASS [employer]ER CPT-47133 Venipuncture Draw Fee 11:14:18 GLASS POLISHER CPT-24838 First Vx - Ix admin for Medicare patients 16:46:52 CDT CPT-25311 Fluzone Preservative Free Intramuscular Suspension 16:46 :51 CDT CPT-14940 CBC - LAB USE ONLY 17:14:46 CDT CPT-34490 HGBA1C - LAB USE ONLY 17:14:46 CDT CPT-80821 Venipuncture Draw Fee 17:14:46 CDT CPT-G0438 Initial Annual Wellness Exam 14:13:04 CDT CPT-25724 Breathing Tx 10:06:54 [employer] CPT-78847 Postop F/U Visit 10:02:45 CDT CPT-LR Lesion Removal 09:02:56 CDT CPT-JTINJ Asp/Joint Injection 15:51:27 [employer] CPT-OV Office Visit 15:52:02 [employer]ASS [employer]ER CPT-OV Office Visit 15:45:11 CDT CPT-000 Give Zostavax 14:09:06 CDT CPT-85496 Administration single or combination vaccine inc oral 15 :19:04 CDT CPT-05468 Zoster Vaccine (Zostavax) 15:19:04 CDT CPT-76888 Administration single or combination vaccine inc oral 20 :51:03 CDT CPT-71775 Influenza split virus > age 3 20:51:03 CDT CPT-09668 No Charge Offi Visit 14:52:03 CDT CPT-OV Office Visit 14:57:43 CDT CPT-OV Office Visit 15:22:32 CDT CPT-53533 Administration single or combination vaccine inc oral 11 :33:15 CDT CPT-66671 Influenza split virus > age 3 11:33:15 CDT
--- OUTSIDE RECORDS SUMMARY | 2018-04-25 14:24 | XMS REPORT | Clinical Summary ---
Author Author Admin, SACHI Clemons [facility] Address Unknown Phone Unavailable Allergies, Adverse [...] parts of trunk, complicated 879.7 Resolved Tu Landeors MD Open wound of other and unspecified [...] NDC Status Provider Patient Instruction METFORMIN HCL 850 MG TABS 1 tablet by mouth twice daily METFORMIN HCL 75805244282 Active Tu Landeros MD Active TRUEDRAW LANCING DEVICE MISC test blood sugar twice daily dx: 250.00 LANCET DEVICES 85984001907 Active Tu Landeros MD Active TRUEDRAW LANCING DEVICE MISC Test twice a day dx 250.0 LANCET DEVICES 80342010280 Active Tu Landeros MD Active TRUERESULT BLOOD GLUCOSE W/DEVICE KIT test blood sugar twice daily dx 250.00 BLOOD GLUCOSE MONITORING SUPPL 27837930912 Active uT Landeros MD Active TRUETEST TEST INVITR STRP test blood sugar twice daily. DX 250.0 GLUCOSE BLOOD 94143123939 Active Tu Landeros MD Active EMBRACE BLOOD GLUCOSE TEST STRP test blood sugar twice daily DX 250.0 2014 GLUCOSE BLOOD 66658659397 No Longer Active Tu Landeros MD Active TRUETEST TEST STRP test blood sugar three times daily dx: 250.00 GLUCOSE BLOOD 80640136116 No Longer Active Suze VOGEL Active TRUERESULT BLOOD GLUCOSE W/DEVICE KIT use to test blood sugar tid dx: 250.00 BLOOD GLUCOSE MONITORING SUPPL 03806959039 No Longer Active Suze Corey RMA Active ALIGN 4 MG CAPS 1 tid PROBIOTIC PRODUCT 95915202111 No Longer Active Shaun Sy MD Active CIPRO 500 MG TABS 1 bid x 14 days start 09-28-13 CIPROFLOXACIN HCL 83693612857 No Longer Active Shaun Sy MD Active TRAMADOL HCL 50 MG TABS 1-2 tablets every 6 hours as needed for pain TRAMADOL HCL 46512291476 Active Fab Morales DO Active HYDROCODONE-ACETAMINOPHEN 5-325 MG TABS 1 tab by mouth every 6 hours as needed for pain HYDROCODONE-ACETAMINOPHEN 00657144038 No Longer Active Tu Landeros MD Active OMEPRAZOLE 20 MG CPDR 1 po q a.m. OMEPRAZOLE 37376693549 Active Tu Landeros MD Active GABAPENTIN 100 MG CAPS 1 po bid GABAPENTIN 36121234588 No Longer Active Tu Landeros MD Active B-12 100 MCG TABS Take one by mouth daily CYANOCOBALAMIN 49679432078 No Longer Active Tu Landeros MD Active GABAPENTIN 100 MG CAPS by mouth twice a day GABAPENTIN 55477141779 Active Tu Landeros MD Active BACTRIM DS 800-160 MG TABS 1 bid x 14 day start 09-28-13 SULFAMETHOXAZOLE-TRIMETHOPRIM 83049122438 No Longer Active Tu Landeros MD Active SIMVASTATIN 40 MG TABS 1 tab daily at bedtime SIMVASTATIN 92361817305 Active Tu Landeros MD Active CARVEDILOL 12.5 MG TABS 1 po BID CARVEDILOL 25689515405 Active Tu Landeros MD Active SUPER B COMPLEX/VITAMIN C TABS 1 qd B COMPLEX-C 53039457609 Active JASPREET Perez Active TRILIPIX 135 MG CPDR 1 q hs CHOLINE FENOFIBRATE 84011159484 Active Tu Landeros MD Active FENOFIBRATE 145 MG TABS 1 po qd FENOFIBRATE 84623561649 No Longer Active JASPREET Perez Active OMEPRAZOLE 20 MG TBEC 1 PO 30 MIN BEFORE 1ST MEAL OMEPRAZOLE 92476004250 No Longer Active JASPREET Perez Active SIMVASTATIN 40 MG TABS Take one by mouth daily SIMVASTATIN 88563917257 No Longer Active Gustavo HoffeauJASPREET Active VENLAFAXINE HCL 37.5 MG TABS 1 bid VENLAFAXINE HCL 50967895203 Active Tu Landeros MD Active VENLAFAXINE HCL 75 MG TABS 1 po BID VENLAFAXINE HCL 63447881120 No Longer Active Gustavo HoffeauJASPREET Active CIPRO 500 MG TAB 1 tablet by mouth twice daily CIPROFLOXACIN HCL 42721507079 No Longer Active Tu Landeros MD Active VENLAFAXINE HCL 37.5 MG TABS 1 po BID VENLAFAXINE HCL 81517795458 No Longer Active Suzebianca Nicole A Active [employer] STOOL SOFTENER 100 MG CAPS 1 tab daily DOCUSATE SODIUM 96795029711 Active Tu Landeros MD Active LAMISIL 250 MG TAB 1 po qd TERBINAFINE HCL 63518307565 No Longer Active Tu Landeros MD Active LORTAB 5 5-500 MG TABS 1/2 to 1 tablet by mouth every 4 hours as needed for pain HYDROCODONE-ACETAMINOPHEN 80095681520 No Longer Active Tu Landeros MD Active ENALAPRIL MALEATE 20 MG TABS 1.5 po qd ENALAPRIL MALEATE 69986247958 Active Tu Landeros MD Active HYDROCODONE-ACETAMINOPHEN 5-500 MG TABS take one po Q 4-6 hours prn HYDROCODONE-ACETAMINOPHEN 00550328119 No Longer Active Tu Landeros MD Active BACTRIM DS 800-160 MG TABS 1 po BID x 7 days SULFAMETHOXAZOLE-TRIMETHOPRIM 41331189644 No Longer Active Tu Landeros MD Active VENLAFAXINE HCL 75 MG TABS 1 po BID VENLAFAXINE HCL 97858388355 No Longer Active Elvira Cervantes MD PhD Active TRAMADOL HCL 50 MG TABS 1 tablets every 6 hours as needed for pain TRAMADOL HCL 46721861695 No Longer Active Tu Landeros MD Active ACCU-CHEK FASTCLIX LANCETS MISC Use to check bloodsugar three times daily as needed LANCETS 02064898000 No Longer Active Tu Landeros MD Active ACCU-CHEK KEYONA PLUS STRP Use for testing bloodsugars three times daily as needed GLUCOSE BLOOD 35951241468 No Longer Active Tu Landeros MD Active ACCU-CHEK KEYONA PLUS W/DEVICE KIT Use for testing bloodsugars three times daily as needed BLOOD GLUCOSE MONITORING SUPPL 59641231347 No Longer Active Tu Landeros MD Active SPIRONOLACTONE 25 MG TAB 0.5 tablet by mouth daily SPIRONOLACTONE 96153352725 No Longer Active Tu Landeros MD Active ALPRAZOLAM 0.5 MG TABS 1 tab every 6hrs as needed ALPRAZOLAM 27148363821 No Longer Active Tu Landeros MD Active AUGMENTIN 875-125 MG TAB 1 tab by mouth twice daily with food AMOXICILLIN-POT CLAVULANATE 43284043097 No Longer Active Tu Landeros MD Active PREDNISONE 20 MG TAB 2 tabs daily for 3 days, 1 tab daily for 3 days, 1/2 tab daily for 2 days PREDNISONE 46619829196 No Longer Active Tu Landeros MD Active XANAX 0.5 MG TABS 1 tablet every 6 hrs prn ALPRAZOLAM 96115008811 No Longer Active Tu Landeros MD Active PREDNISONE 20 MG TAB 2 tabs daily for 3 days, 1 tab daily for 3 days, 1/2 tab daily for 2 days PREDNISONE 01298032898 No Longer Active Tu Landeros MD Active TRIAMCINOLONE ACETONIDE 0.1 % OINT Apply to affected areas TID for up to 2 weeks TRIAMCINOLONE ACETONIDE 15139837140 No Longer Active Tu Landeros MD Active LORTAB 5 5-500 MG TABS 1/2 to 1 tablet by mouth every 4 hours as needed for pain HYDROCODONE-ACETAMINOPHEN 10609329371 No Longer Active Tu Landeros MD Active MULTIVITAMINS TABS Take one by mouth daily MULTIPLE VITAMIN 31642891390 No Longer Active Tu Landeros MD Active MELATONIN 5 MG TABS Take one by mouth daily MELATONIN 53326685249 No Longer Active Tu Landeros MD Active SOMA 350 MG TAB 1 po q 6 hours prn spasm CARISOPRODOL 67061290445 No Longer Active Tu Landeros MD Active MECLIZINE HCL 25 MG CHEW TAB 1 four times a day as needed for dizziness 08/05 MECLIZINE HCL 83885909766 No Longer Active Fab Morales DO Active ANGEL BREEZE 2 TEST DISK test tid prn GLUCOSE BLOOD 86370702433 No Longer Active Negra Scott RN Active DICLOFENAC SODIUM 50 MG TBEC 1 tablet by mouth three times a day as needed DICLOFENAC SODIUM 38953167733 Active Tu Landeros MD Active REGLAN 10 MG TAB 1 po TID PRN [place] METOCLOPRAMIDE HCL 24842688299 No Longer Active Tu Landeros MD Active METFORMIN HCL 500 MG TABS 1 PO BID METFORMIN HCL 49739192701 No Longer Active Tu Landeros MD Active AMBIEN 10 MG TAB 1 tab by mouth at bedtime as needed for sleep ZOLPIDEM TARTRATE 11304863883 No Longer Active Tu Landeros MD Active FLUOXETINE HCL 40 MG CAPS 1 po q day FLUOXETINE HCL 18429183546 No Longer Active Mayra [place] Active FISH OIL 1000 MG CAPS Take one by mouth daily OMEGA-3 FATTY ACIDS 46294150687 Active Tu Landeros MD Active GLUCOSAMINE 500 MG TABS Take 2 tab po qd GLUCOSAMINE 52355545894 Active Tu Landeros MD Active TRILIPIX 135 MG CPDR 1 po qd CHOLINE FENOFIBRATE 39308273445 No Longer Active Tu Landeros MD Active ASPIRIN 81 MG CHEW TAB 1 tablet by mouth daily ASPIRIN 09462075684 Active Tu Landeros MD Active FUROSEMIDE 40 MG TAB 1 tablet by mouth daily FUROSEMIDE 87038968115 Active Tu Landeros MD Active REQUIP 2 MG TABS Take one tablet at bedtime prn ROPINIROLE HCL 10474901815 Active Tu Landeros MD Active KLOR-CON 10 10 MEQ CR-TABS TAKE 2 TABS DAILY POTASSIUM CHLORIDE 50022590123 Active Tu Landeros MD Active AMBIEN 10 MG TAB 1 tab by mouth at bedtime as needed for sleep AMBIEN 10 MG TAB 942166 ZOLPIDEM TARTRATE Inactive METFORMIN HCL 500 MG TABS 1 PO BID METFORMIN HCL 500 MG TABS 276338 METFORMIN HCL Inactive REGLAN 10 MG TAB 1 po TID PRN Nausea REGLAN 10 MG TAB 787121 METOCLOPRAMIDE HCL Inactive MECLIZINE HCL 25 MG CHEW TAB 1 four times a day as needed for dizziness 08/05 MECLIZINE HCL 25 MG CHEW TAB 021005 MECLIZINE HCL Inactive SOMA 350 MG TAB 1 po q 6 hours prn spasm SOMA 350 MG TAB 875259 CARISOPRODOL Inactive MELATONIN 5 MG TABS Take one by mouth daily MELATONIN 5 MG TABS 926263 MELATONIN Inactive MULTIVITAMINS TABS Take one by mouth daily MULTIVITAMINS TABS MULTIPLE VITAMIN Inactive LORTAB 5 5-500 MG TABS 1/2 to 1 tablet by mouth every 4 hours as needed for pain LORTAB 5 5-500 MG TABS HYDROCODONE- ACETAMINOPHEN Inactive XANAX 0.5 MG TABS 1 tablet every 6 hrs prn XANAX 0.5 MG TABS 668934 ALPRAZOLAM Inactive AUGMENTIN 875-125 MG TAB 1 tab by mouth twice daily with food AUGMENTIN 875-125 MG TAB 126731 AMOXICILLIN-POT CLAVULANATE Inactive ALPRAZOLAM 0.5 MG TABS 1 tab every 6hrs as needed ALPRAZOLAM 0.5 MG TABS 747471 ALPRAZOLAM Inactive SPIRONOLACTONE 25 MG TAB 0.5 tablet by mouth daily SPIRONOLACTONE 25 MG TAB 214249 SPIRONOLACTONE Inactive ACCU-CHEK KEYONA PLUS W/DEVICE KIT Use for testing bloodsugars three times daily as needed ACCU-CHEK KEYONA PLUS W/DEVICE KIT BLOOD GLUCOSE MONITORING SUPPL Inactive ACCU-CHEK KEYONA PLUS STRP Use for testing bloodsugars three times daily as needed ACCU-CHEK KEYONA PLUS STRP GLUCOSE BLOOD Inactive ACCU-CHEK FASTCLIX LANCETS MISC Use to check bloodsugar three times daily as needed ACCU-CHEK FASTCLIX LANCETS MISC 96646515574 LANCETS Inactive TRAMADOL HCL 50 MG TABS 1 tablets every 6 hours as needed for pain TRAMADOL HCL 50 MG TABS 273758 TRAMADOL HCL Inactive VENLAFAXINE HCL 75 MG TABS 1 po BID VENLAFAXINE HCL 75 MG TABS 521820 VENLAFAXINE HCL Inactive HYDROCODONE-ACETAMINOPHEN 5-500 MG TABS take one po Q 4-6 hours prn HYDROCODONE-ACETAMINOPHEN 5-500 MG TABS HYDROCODONE- ACETAMINOPHEN Inactive LORTAB 5 5-500 MG TABS 1/2 to 1 tablet by mouth every 4 hours as needed for pain LORTAB 5 5-500 MG TABS HYDROCODONE- ACETAMINOPHEN Inactive LAMISIL 250 MG TAB 1 po qd LAMISIL 250 MG TAB 304700 TERBINAFINE HCL Inactive VENLAFAXINE HCL 37.5 MG TABS 1 po BID VENLAFAXINE HCL 37.5 MG TABS 105113 VENLAFAXINE HCL Inactive CIPRO 500 MG TAB 1 tablet by mouth twice daily CIPRO 500 MG TAB 406087 CIPROFLOXACIN HCL Inactive VENLAFAXINE HCL 75 MG TABS 1 po BID VENLAFAXINE HCL 75 MG TABS 324596 VENLAFAXINE HCL Inactive SIMVASTATIN 40 MG TABS Take one by mouth daily SIMVASTATIN 40 MG TABS 262003 SIMVASTATIN Inactive OMEPRAZOLE 20 MG TBEC 1 PO 30 MIN BEFORE 1ST MEAL OMEPRAZOLE 20 MG TBEC 872671 OMEPRAZOLE Inactive FENOFIBRATE 145 MG TABS 1 po qd FENOFIBRATE 145 MG TABS 804515 FENOFIBRATE Inactive BACTRIM DS 800-160 MG TABS 1 bid x 14 day start 09-28-13 BACTRIM DS 800-160 MG TABS SULFAMETHOXAZOLE-TRIMETHOPRIM Inactive B-12 100 MCG TABS Take one by mouth daily B-12 100 MCG TABS CYANOCOBALAMIN Inactive GABAPENTIN 100 MG CAPS 1 po bid GABAPENTIN 100 MG CAPS 625919 GABAPENTIN Inactive HYDROCODONE-ACETAMINOPHEN 5-325 MG TABS 1 tab by mouth every 6 hours as needed for pain HYDROCODONE-ACETAMINOPHEN 5-325 MG TABS 218485 HYDROCODONE-ACETAMINOPHEN Inactive CIPRO 500 MG TABS 1 bid x 14 days start 09-28-13 CIPRO 500 MG TABS 192641 CIPROFLOXACIN HCL Inactive ALIGN 4 MG CAPS [...] 2 weeks TRIAMCINOLONE ACETONIDE 0.1 % OINT 6149519 TRIAMCINOLONE ACETONIDE Inactive PREDNISONE 20 MG TAB 2 tabs daily for 3 days, 1 tab daily for 3 days, 1/2 tab daily for 2 days PREDNISONE 20 MG TAB 721070 PREDNISONE Inactive PREDNISONE 20 MG TAB 2 tabs daily for 3 days, 1 tab daily for 3 days, 1/2 tab daily for 2 days PREDNISONE 20 MG TAB 714248 PREDNISONE Inactive BACTRIM DS 800-160 MG TABS 1 po BID x 7 days BACTRIM DS 800-160 MG TABS SULFAMETHOXAZOLE-TRIMETHOPRIM Inactive Immunizations Vaccine Administration Date Value Standard Description Seasonal influenza vaccine, injectable, containing preservative, for > 3 years old (Afluria, FluLaval, Fluzone, Fluvirin, Fluarix, Agriflu(>=18 yo)) Fluzone (>3 yrs.) [[id number]] Influenza, seasonal, injectable influenza immunization (Flu Vax) has been administered 02/22/2012 influenza virus vaccine, unspecified formulation Seasonal influenza vaccine, injectable, containing preservative, for > 3 years old (Afluria, FluLaval, Fluzone, Fluvirin, Fluarix, Agriflu(>=18 yo)) Fluzone (>3 yrs.) [[id number]] Influenza, seasonal, injectable Vital Signs Date Name [...] CBC - Chemistry sodium, serum 143 mmol/L 619-262 3785/03/10 potassium, serum 4.9 mmol/L 3.5-5.2 chloride, serum [...] count 275 10^3/MM^3 10*3/mm3 142-424 Lab Report: HGBA1C - [...] mg/dL Encounters Code Encounter Date Provider Facility CPT-02548 Level 4 Est. Patient 14:38:57 CDT Tu Landeros MD [facility] CPT-49248 Level 4 Est. 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 Patient 09:45:25 CDT Tu Landeros MD [facility] CPT-27899 Level 4 Est. Patient 09:05:20 WAFER MACHINE OPERATOR Tu Landeros MD [facility] CPT-02592 Level 4 Est. Patient 14:09:06 CDT Tu Landeros MD [facility] CPT-89938 Level 3 Est. Patient 13:36:54 CDT Tu Landeros MD [facility] CPT-49502 Level 3 Est. Patient 08:59:14 CDT Tu Landeros MD [facility] CPT-00610 Level 3 Est. Patient 13:48:35 CDT Fab Morales DO [facility] CPT-19448 Level 4 Est. Patient 10:05:48 CDT Tu Landeros MD [facility] CPT-59375 Level 3 Est. Patient 13:38:42 CDT Marek BANKS [facility] CPT-69726 Level 5 Est. Patient 08:08:39 CDT Jerrica FRANCIS [facility] CPT-81769 Level 4 Est. Patient 14:23:38 CDT Tu Landeros MD [facility] CPT-38969 Level 3 Est. Patient 11:44:04 CDT Tu Landeros MD [facility] CPT-04682 Level 3 Est. Patient 11:03:20 WAFER MACHINE OPERATOR Tu Landeros MD [facility] CPT-96845 Level 3 Est. Patient 11:03:14 WAFER MACHINE OPERATOR Tu Landeros MD [facility] CPT-98476 Level 3 Est. Patient 12:42:49 CDT Tu Landeros MD [facility] CPT-78549 Level 3 Est. Patient 11:52:06 CDT Tu Landeros MD [facility] CPT-07447 Level 3 Est. Patient 13:58:11 CDT Tu Landeros MD [facility] CPT-61414 Level 3 Est. Patient 17:50:07 CDT Fab Morales DO [facility] CPT-59874 Level 3 Est. Patient 12:06:29 CDT Elvira Cervantes MD [facility] CPT-59923 Level 3 Est. Patient 15:50:32 CDT Tu Landeros MD [facility] CPT-86171 Level 4 Est. Patient 16:08:29 CDT Tu Landeros MD [facility] CPT-94324 Level 3 Est. Patient 16:04:19 CDT Tu Landeros MD [facility] CPT-91876 Level 3 Est. Patient 11:22:30 WAFER MACHINE OPERATOR Tu Landeros MD [facility] CPT-46506 Level 4 Est. Patient 16:24:02 WAFER MACHINE OPERATOR Tu Landeros MD [facility] CPT-51917 Level 3 Est. Patient 17:21:23 WAFER MACHINE OPERATOR Tu Landeros MD [facility] Procedures Code Procedure Name Date Entry Date Standard Description CPT-[id number] Asp/Joint Injection 15:51:27 WAFER MACHINE OPERATOR CPT-OV Office Visit 15:52:02 WAFER MACHINE OPERATOR CPT-OV Office Visit 15:45:11 CDT CPT-000 Give Zostavax 14:09:06 CDT CPT-81801 Administration single or combination vaccine inc oral 15 :19:04 CDT CPT-65168 Zoster Vaccine (Zostavax) 15:19:04 CDT CPT-35668 Administration single or combination vaccine inc oral 20 :51:03 CDT CPT-26965 Influenza split virus > age 3 20:51:03 CDT CPT-12550 No Charge Offi Visit 14:52:03 CDT CPT-OV Office Visit 14:57:43 CDT CPT-OV Office Visit 15:22:32 CDT CPT-68264 Administration single or combination vaccine inc oral 11 :33:15 CDT CPT-66604 Influenza split virus > age 3 11:33:15 CDT
--- OUTSIDE RECORDS SUMMARY | 2018-04-25 14:25 | XMS REPORT | Clinical Summary ---
Author Author Admin, SACHI Clemons [facility] Address Unknown Phone Unavailable Allergies, Adverse [...] tablet by mouth twice daily METFORMIN HCL 70217697787 Active Tu Landeros MD Active TRUEDRAW LANCING DEVICE MISC test blood sugar twice daily dx: 250.00 LANCET DEVICES 66679130098 Active Tu Landeros MD Active TRUEDRAW LANCING DEVICE MISC Test twice a day dx 250.0 LANCET DEVICES 69272725949 Active Tu Landeros MD Active TRUERESULT BLOOD GLUCOSE W/DEVICE KIT test blood sugar twice daily dx 250.00 BLOOD GLUCOSE MONITORING SUPPL 57157673501 Active Tu Landeros MD Active TRUETEST TEST INVITR STRP test blood sugar twice daily. DX 250.0 GLUCOSE BLOOD 15380668070 Active Tu Landeros MD Active EMBRACE BLOOD GLUCOSE TEST STRP test blood sugar twice daily DX 250.0 2014 GLUCOSE BLOOD 28150181991 No Longer Active Tu Landeros MD Active TRUETEST TEST STRP test blood sugar three times daily dx: 250.00 GLUCOSE BLOOD 37013176479 No Longer Active Suze VOGEL Active TRUERESULT BLOOD GLUCOSE W/DEVICE KIT use to test blood sugar tid dx: 250.00 BLOOD GLUCOSE MONITORING SUPPL 61226164323 No Longer Active Suze Corey RMA Active ALIGN 4 MG CAPS 1 tid PROBIOTIC PRODUCT 36915156637 No Longer Active Shaun Sy MD Active CIPRO 500 MG TABS 1 bid x 14 days start 09-28-13 CIPROFLOXACIN HCL 97367433863 No Longer Active Shaun Sy MD Active TRAMADOL HCL 50 MG TABS 1-2 tablets every 6 hours as needed for pain TRAMADOL HCL 05694735776 Active Fab Mroales DO Active HYDROCODONE-ACETAMINOPHEN 5-325 MG TABS 1 tab by mouth every 6 hours as needed for pain HYDROCODONE-ACETAMINOPHEN 19562387160 No Longer Active Tu Landeros MD Active OMEPRAZOLE 20 MG CPDR 1 po q a.m. OMEPRAZOLE 54184560017 Active Tu Landeros MD Active GABAPENTIN 100 MG CAPS 1 po bid GABAPENTIN 44983384554 No Longer Active Tu Landeros MD Active B-12 100 MCG TABS Take one by mouth daily CYANOCOBALAMIN 58769339015 No Longer Active Tu Landeros MD Active GABAPENTIN 100 MG CAPS by mouth twice a day GABAPENTIN 62104037025 Active Tu Landeros MD Active BACTRIM DS 800-160 MG TABS 1 bid x 14 day start 09-28-13 SULFAMETHOXAZOLE-TRIMETHOPRIM 35197047983 No Longer Active Tu Landeros MD Active SIMVASTATIN 40 MG TABS 1 tab daily at bedtime SIMVASTATIN 38779758713 Active Tu Landeros MD Active CARVEDILOL 12.5 MG TABS 1 po BID CARVEDILOL 85651432737 Active Tu Landeros MD Active SUPER B COMPLEX/VITAMIN C TABS 1 qd B COMPLEX-C 30508573577 Active JASPREET Perez Active TRILIPIX 135 MG CPDR 1 q hs CHOLINE FENOFIBRATE 79656435849 Active Tu Landeros MD Active FENOFIBRATE 145 MG TABS 1 po qd FENOFIBRATE 05162695651 No Longer Active JASPREET Perez Active OMEPRAZOLE 20 MG TBEC 1 PO 30 MIN BEFORE 1ST MEAL OMEPRAZOLE 68078012920 No Longer Active JASPREET Perez Active SIMVASTATIN 40 MG TABS Take one by mouth daily SIMVASTATIN 14900400942 No Longer Active Gustavo HoffeauJASPREET Active VENLAFAXINE HCL 37.5 MG TABS 1 bid VENLAFAXINE HCL 28913108110 Active Tu Landeros MD Active VENLAFAXINE HCL 75 MG TABS 1 po BID VENLAFAXINE HCL 15730945832 No Longer Active Gustavo HoffeauJASPREET Active CIPRO 500 MG TAB 1 tablet by mouth twice daily CIPROFLOXACIN HCL 18199151530 No Longer Active Tu Landeros MD Active VENLAFAXINE HCL 37.5 MG TABS 1 po BID VENLAFAXINE HCL 48573846041 No Longer Active Suzebianca Nicole A Active [employer] STOOL SOFTENER 100 MG CAPS 1 tab daily DOCUSATE SODIUM 36717777088 Active Tu Landeros MD Active LAMISIL 250 MG TAB 1 po qd TERBINAFINE HCL 47864012940 No Longer Active Tu Landeros MD Active LORTAB 5 5-500 MG TABS 1/2 to 1 tablet by mouth every 4 hours as needed for pain HYDROCODONE-ACETAMINOPHEN 95319428717 No Longer Active Tu Landeros MD Active ENALAPRIL MALEATE 20 MG TABS 1.5 po qd ENALAPRIL MALEATE 93251641761 Active Tu Landeros MD Active HYDROCODONE-ACETAMINOPHEN 5-500 MG TABS take one po Q 4-6 hours prn HYDROCODONE-ACETAMINOPHEN 48099823710 No Longer Active Tu Landeros MD Active BACTRIM DS 800-160 MG TABS 1 po BID x 7 days SULFAMETHOXAZOLE-TRIMETHOPRIM 31767247826 No Longer Active Tu Landeros MD Active VENLAFAXINE HCL 75 MG TABS 1 po BID VENLAFAXINE HCL 50062867828 No Longer Active Elvira Cervantes MD PhD Active TRAMADOL HCL 50 MG TABS 1 tablets every 6 hours as needed for pain TRAMADOL HCL 00821011350 No Longer Active Tu Landeros MD Active ACCU-CHEK FASTCLIX LANCETS MISC Use to check bloodsugar three times daily as needed LANCETS 83381044063 No Longer Active Tu Landeros MD Active ACCU-CHEK KEYONA PLUS STRP Use for testing bloodsugars three times daily as needed GLUCOSE BLOOD 37889878252 No Longer Active Tu Landeros MD Active ACCU-CHEK KEYONA PLUS W/DEVICE KIT Use for testing bloodsugars three times daily as needed BLOOD GLUCOSE MONITORING SUPPL 91754558052 No Longer Active Tu Landeros MD Active SPIRONOLACTONE 25 MG TAB 0.5 tablet by mouth daily SPIRONOLACTONE 69676837346 No Longer Active Tu Landeros MD Active ALPRAZOLAM 0.5 MG TABS 1 tab every 6hrs as needed ALPRAZOLAM 92294152564 No Longer Active Tu Landeros MD Active AUGMENTIN 875-125 MG TAB 1 tab by mouth twice daily with food AMOXICILLIN-POT CLAVULANATE 74304346136 No Longer Active Tu Landeros MD Active PREDNISONE 20 MG TAB 2 tabs daily for 3 days, 1 tab daily for 3 days, 1/2 tab daily for 2 days PREDNISONE 30805990694 No Longer Active Tu Landeros MD Active XANAX 0.5 MG TABS 1 tablet every 6 hrs prn ALPRAZOLAM 01091786614 No Longer Active Tu Landeros MD Active PREDNISONE 20 MG TAB 2 tabs daily for 3 days, 1 tab daily for 3 days, 1/2 tab daily for 2 days PREDNISONE 30965470462 No Longer Active Tu Landeros MD Active TRIAMCINOLONE ACETONIDE 0.1 % OINT Apply to affected areas TID for up to 2 weeks TRIAMCINOLONE ACETONIDE 51999589926 No Longer Active Tu Landeros MD Active LORTAB 5 5-500 MG TABS 1/2 to 1 tablet by mouth every 4 hours as needed for pain HYDROCODONE-ACETAMINOPHEN 20357891448 No Longer Active Tu Landeros MD Active MULTIVITAMINS TABS Take one by mouth daily MULTIPLE VITAMIN 97337791203 No Longer Active Tu Landeros MD Active MELATONIN 5 MG TABS Take one by mouth daily MELATONIN 60085714618 No Longer Active Tu Landeros MD Active SOMA 350 MG TAB 1 po q 6 hours prn spasm CARISOPRODOL 06780586240 No Longer Active Tu Landeros MD Active MECLIZINE HCL 25 MG CHEW TAB 1 four times a day as needed for dizziness 08/05 MECLIZINE HCL 96193335761 No Longer Active Fab Morales DO Active ANGEL BREEZE 2 TEST DISK test tid prn GLUCOSE BLOOD 16619751524 No Longer Active Negra Scott RN Active DICLOFENAC SODIUM 50 MG TBEC 1 tablet by mouth three times a day as needed DICLOFENAC SODIUM 31657691949 Active Tu Landeros MD Active REGLAN 10 MG TAB 1 po TID PRN [place] METOCLOPRAMIDE HCL 00458922735 No Longer Active Tu Landeros MD Active METFORMIN HCL 500 MG TABS 1 PO BID METFORMIN HCL 31062183226 No Longer Active Tu Landeros MD Active AMBIEN 10 MG TAB 1 tab by mouth at bedtime as needed for sleep ZOLPIDEM TARTRATE 47826098325 No Longer Active Tu Landeros MD Active FLUOXETINE HCL 40 MG CAPS 1 po q day FLUOXETINE HCL 80723725899 No Longer Active [facility] Active FISH OIL 1000 MG CAPS Take one by mouth daily OMEGA-3 FATTY ACIDS 95500147248 Active Tu Landeros MD Active GLUCOSAMINE 500 MG TABS Take 2 tab po qd GLUCOSAMINE 70622862066 Active Tu Landeros MD Active TRILIPIX 135 MG CPDR 1 po qd CHOLINE FENOFIBRATE 74744931601 No Longer Active Tu Landeros MD Active ASPIRIN 81 MG CHEW TAB 1 tablet by mouth daily ASPIRIN 16071399739 Active Tu Landeros MD Active FUROSEMIDE 40 MG TAB 1 tablet by mouth daily FUROSEMIDE 83110503788 Active Tu Landeros MD Active REQUIP 2 MG TABS Take one tablet at bedtime prn ROPINIROLE HCL 30060377724 Active Tu Landeros MD Active KLOR-CON 10 10 MEQ CR-TABS TAKE 2 TABS DAILY POTASSIUM CHLORIDE 61626160410 Active Tu Landeros MD Active AMBIEN 10 MG TAB 1 tab by mouth at bedtime as needed for sleep AMBIEN 10 MG TAB 048417 ZOLPIDEM TARTRATE Inactive METFORMIN HCL 500 MG TABS 1 PO BID METFORMIN HCL 500 MG TABS 621587 METFORMIN HCL Inactive REGLAN 10 MG TAB 1 po TID PRN Nausea REGLAN 10 MG TAB 875588 METOCLOPRAMIDE HCL Inactive MECLIZINE HCL 25 MG CHEW TAB 1 four times a day as needed for dizziness 08/05 MECLIZINE HCL 25 MG CHEW TAB 559350 MECLIZINE HCL Inactive SOMA 350 MG TAB 1 po q 6 hours prn spasm SOMA 350 MG TAB 884330 CARISOPRODOL Inactive MELATONIN 5 MG TABS Take one by mouth daily MELATONIN 5 MG TABS 506177 MELATONIN Inactive MULTIVITAMINS TABS Take one by mouth daily MULTIVITAMINS TABS MULTIPLE VITAMIN Inactive LORTAB 5 5-500 MG TABS 1/2 to 1 tablet by mouth every 4 hours as needed for pain LORTAB 5 5-500 MG TABS HYDROCODONE- ACETAMINOPHEN Inactive XANAX 0.5 MG TABS 1 tablet every 6 hrs prn XANAX 0.5 MG TABS 757517 ALPRAZOLAM Inactive AUGMENTIN 875-125 MG TAB 1 tab by mouth twice daily with food AUGMENTIN 875-125 MG TAB 396930 AMOXICILLIN-POT CLAVULANATE Inactive ALPRAZOLAM 0.5 MG TABS 1 tab every 6hrs as needed ALPRAZOLAM 0.5 MG TABS 562753 ALPRAZOLAM Inactive SPIRONOLACTONE 25 MG TAB 0.5 tablet by mouth daily SPIRONOLACTONE 25 MG TAB 569574 SPIRONOLACTONE Inactive ACCU-CHEK KEYONA PLUS W/DEVICE KIT Use for testing bloodsugars three times daily as needed ACCU-CHEK KEYONA PLUS W/DEVICE KIT BLOOD GLUCOSE MONITORING SUPPL Inactive ACCU-CHEK KEYONA PLUS STRP Use for testing bloodsugars three times daily as needed ACCU-CHEK KEYONA PLUS STRP GLUCOSE BLOOD Inactive ACCU-CHEK FASTCLIX LANCETS MISC Use to check bloodsugar three times daily as needed ACCU-CHEK FASTCLIX LANCETS MISC 09581769733 LANCETS Inactive TRAMADOL HCL 50 MG TABS 1 tablets every 6 hours as needed for pain TRAMADOL HCL 50 MG TABS 980067 TRAMADOL HCL Inactive VENLAFAXINE HCL 75 MG TABS 1 po BID VENLAFAXINE HCL 75 MG TABS 376193 VENLAFAXINE HCL Inactive HYDROCODONE-ACETAMINOPHEN 5-500 MG TABS take one po Q 4-6 hours prn HYDROCODONE-ACETAMINOPHEN 5-500 MG TABS HYDROCODONE- ACETAMINOPHEN Inactive LORTAB 5 5-500 MG TABS 1/2 to 1 tablet by mouth every 4 hours as needed for pain LORTAB 5 5-500 MG TABS HYDROCODONE- ACETAMINOPHEN Inactive LAMISIL 250 MG TAB 1 po qd LAMISIL 250 MG TAB 378384 TERBINAFINE HCL Inactive VENLAFAXINE HCL 37.5 MG TABS 1 po BID VENLAFAXINE HCL 37.5 MG TABS 705841 VENLAFAXINE HCL Inactive CIPRO 500 MG TAB 1 tablet by mouth twice daily CIPRO 500 MG TAB 008058 CIPROFLOXACIN HCL Inactive VENLAFAXINE HCL 75 MG TABS 1 po BID VENLAFAXINE HCL 75 MG TABS 378360 VENLAFAXINE HCL Inactive SIMVASTATIN 40 MG TABS Take one by mouth daily SIMVASTATIN 40 MG TABS 213536 SIMVASTATIN Inactive OMEPRAZOLE 20 MG TBEC 1 PO 30 MIN BEFORE 1ST MEAL OMEPRAZOLE 20 MG TBEC 643437 OMEPRAZOLE Inactive FENOFIBRATE 145 MG TABS 1 po qd FENOFIBRATE 145 MG TABS 495153 FENOFIBRATE Inactive BACTRIM DS 800-160 MG TABS 1 bid x 14 day start 09-28-13 BACTRIM DS 800-160 MG TABS SULFAMETHOXAZOLE-TRIMETHOPRIM Inactive B-12 100 MCG TABS Take one by mouth daily B-12 100 MCG TABS CYANOCOBALAMIN Inactive GABAPENTIN 100 MG CAPS 1 po bid GABAPENTIN 100 MG CAPS 336381 GABAPENTIN Inactive HYDROCODONE-ACETAMINOPHEN 5-325 MG TABS 1 tab by mouth every 6 hours as needed for pain HYDROCODONE-ACETAMINOPHEN 5-325 MG TABS 471056 HYDROCODONE-ACETAMINOPHEN Inactive CIPRO 500 MG TABS 1 bid x 14 days start 09-28-13 CIPRO 500 MG TABS 556350 CIPROFLOXACIN HCL Inactive ALIGN 4 MG CAPS [...] 2 weeks TRIAMCINOLONE ACETONIDE 0.1 % OINT 3617188 TRIAMCINOLONE ACETONIDE Inactive PREDNISONE 20 MG TAB 2 tabs daily for 3 days, 1 tab daily for 3 days, 1/2 tab daily for 2 days PREDNISONE 20 MG TAB 920697 PREDNISONE Inactive PREDNISONE 20 MG TAB 2 tabs daily for 3 days, 1 tab daily for 3 days, 1/2 tab daily for 2 days PREDNISONE 20 MG TAB 845878 PREDNISONE Inactive BACTRIM DS 800-160 MG TABS 1 po BID x 7 days BACTRIM DS 800-160 MG TABS SULFAMETHOXAZOLE-TRIMETHOPRIM Inactive Immunizations Vaccine Administration Date Value Standard Description Seasonal influenza vaccine, injectable, containing preservative, for > 3 years old (Afluria, FluLaval, Fluzone, Fluvirin, Fluarix, Agriflu(>=18 yo)) Fluzone (>3 yrs.) [[id number]] Influenza, seasonal, injectable influenza immunization (Flu Vax) has been administered 02/22/2012 influenza virus vaccine, unspecified formulation Seasonal influenza vaccine, injectable, containing preservative, for > 3 years old (Afluria, FluLaval, Fluzone, Fluvirin, Fluarix, Agriflu(>=18 yo)) Fluzone (>3 yrs.) [[id number]] Influenza, seasonal, injectable Vital Signs Date Name [...] CBC - Chemistry sodium, serum 143 mmol/L 123-037 8545/03/10 potassium, serum 4.9 mmol/L 3.5-5.2 chloride, serum [...] mg/dL Encounters Code Encounter Date Provider Facility CPT-34804 Level 4 Est. Patient 14:38:57 CDT Tu Landeros MD [facility] CPT-70895 Level 4 Est. Patient 14:27:39 WELFARE SPECIALIST Tu Landeros MD [facility] CPT-91716 Level 4 Est. Patient 09:45:25 CDT Tu Landeros MD [facility] CPT-68365 Level 4 Est. Patient 09:05:20 WELFARE SPECIALIST Tu Landeros MD [facility] CPT-71812 Level 4 Est. Patient 14:09:06 CDT Tu Landeros MD [facility] CPT-17537 Level 3 Est. Patient 13:36:54 CDT Tu Landeros MD [facility] CPT-51979 Level 3 Est. Patient 08:59:14 CDT Tu Landeros MD [facility] CPT-90617 Level 3 Est. Patient 13:48:35 CDT Fab Morales DO [facility] CPT-28498 Level 4 Est. Patient 10:05:48 CDT Tu Landeros MD [facility] CPT-86417 Level 3 Est. Patient 13:38:42 CDT Marek BANKS [facility] CPT-35731 Level 5 Est. Patient 08:08:39 CDT Jerrica FRANCIS [facility] CPT-99332 Level 4 Est. Patient 14:23:38 CDT Tu Landeros MD [facility] CPT-25184 Level 3 Est. Patient 11:44:04 CDT Tu Landeros MD [facility] CPT-95264 Level 3 Est. Patient 11:03:20 WELFARE SPECIALIST Tu Landeros MD [facility] CPT-72513 Level 3 Est. Patient 11:03:14 WELFARE SPECIALIST Tu Landeros MD [facility] CPT-21463 Level 3 Est. Patient 12:42:49 CDT Tu Landeros MD [facility] CPT-88054 Level 3 Est. Patient 11:52:06 CDT Tu Landeros MD [facility] CPT-02971 Level 3 Est. Patient 13:58:11 CDT Tu Landeros MD [facility] CPT-06843 Level 3 Est. Patient 17:50:07 CDT Fab Morales DO [facility] CPT-36097 Level 3 Est. Patient 12:06:29 CDT Elvira Cervantes MD, PhD [facility] CPT-21789 Level 3 Est. Patient 15:50:32 CDT Tu Landeros MD [facility] CPT-36261 Level 4 Est. Patient 16:08:29 CDT Tu Landeros MD [facility] CPT-26993 Level 3 Est. Patient 16:04:19 CDT Tu Landeros MD [facility] CPT-27316 Level 3 Est. Patient 11:22:30 WELFARE SPECIALIST Tu Landeros MD [facility] CPT-60910 Level 4 Est. Patient 16:24:02 WELFARE SPECIALIST Tu Landeros MD [facility] CPT-37826 Level 3 Est. Patient 17:21:23 WELFARE SPECIALIST Tu Landeros MD [facility] Procedures Code Procedure Name Date Entry Date Standard Description CPT-[id number] Asp/Joint Injection 15:51:27 WELFARE SPECIALIST CPT-OV Office Visit 15:52:02 WELFARE SPECIALIST CPT-OV Office Visit 15:45:11 CDT CPT-000 Give Zostavax 14:09:06 CDT CPT-50422 Administration single or combination vaccine inc oral 15 :19:04 CDT CPT-38114 Zoster Vaccine (Zostavax) 15:19:04 CDT CPT-57566 Administration single or combination vaccine inc oral 20 :51:03 CDT CPT-65767 Influenza split virus > age 3 20:51:03 CDT CPT-51538 No Charge Offi Visit 14:52:03 CDT CPT-OV Office Visit 14:57:43 CDT CPT-OV Office Visit 15:22:32 CDT CPT-02104 Administration single or combination vaccine inc oral 11 :33:15 CDT CPT-57839 Influenza split virus > age 3 11:33:15 CDT
--- OUTSIDE RECORDS SUMMARY | 2018-04-25 14:26 | XMS REPORT | Clinical Summary ---
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 Moderate or severe vision impairment, both eyes, [...] hours if needed for cough/congestion ALBUTEROL SULFATE 57556174458 No Longer Active Ambika Aden APRN Active ZITHROMAX 250 MG TAB 2 po today, then 1 po q days 2-5 AZITHROMYCIN 79826106795 No Longer Active Miranda Suresh APRN Active METFORMIN HCL 1000 MG TABS 1 tablet by mouth twice daily METFORMIN HCL 55017481813 Active Tu Landeros MD Active FLONASE 50 MCG/ACT SUSP 1 spray each nostril twice daily until bottle empty FLUTICASONE PROPIONATE 27946887015 No Longer Active Tu Landeros MD Active COLACE 100 MG CAP 1 po BID PRN Constipation DOCUSATE SODIUM 50024334107 Active Tu Landeros MD Active SIMVASTATIN 40 MG TABS 0.5 tab daily at bedtime SIMVASTATIN 49381252819 Active Tu Landeros MD Active TRUERESULT BLOOD GLUCOSE W/DEVICE KIT test blood sugar twice daily dx 250.00 BLOOD GLUCOSE MONITORING SUPPL 71373775046 No Longer Active Tu Landeros MD Active TRUEDRAW LANCING DEVICE MISC Test twice a day dx 250.0 LANCET DEVICES 95935910698 No Longer Active Tu Landeros MD Active PREDNISONE 20 MG TAB 2 tablets once daily for 2 days, then 1 tablet once daily for 2 days PREDNISONE 41619582192 No Longer Active Tu Landeros MD Active DICLOFENAC SODIUM 50 MG TBEC 1 tablet by mouth three times a day as needed DICLOFENAC SODIUM 40832417248 No Longer Active Fab Morales DO Active TRUEDRAW LANCING DEVICE MISC test blood sugar twice daily dx: 250.00 LANCET DEVICES 93347856316 Active Tu Landeros MD Active TRUETEST TEST INVITR STRP test blood sugar twice daily. DX 250.0 GLUCOSE BLOOD 03151086638 Active Tu Landeros MD Active EMBRACE BLOOD GLUCOSE TEST STRP test blood sugar twice daily DX 250.0 2014 GLUCOSE BLOOD 89440682059 No Longer Active Tu Landeros MD Active TRUETEST TEST STRP test blood sugar three times daily dx: 250.00 GLUCOSE BLOOD 35148264799 No Longer Active Suze Corey RMA Active TRUERESULT BLOOD GLUCOSE W/DEVICE KIT use to test blood sugar tid dx: 250.00 BLOOD GLUCOSE MONITORING SUPPL 18902936032 No Longer Active Suze Corey RMA Active ALIGN 4 MG CAPS 1 tid PROBIOTIC PRODUCT 81874778991 No Longer Active Shaun Sy MD Active CIPRO 500 MG TABS 1 bid x 14 days start 09-28-13 CIPROFLOXACIN HCL 09285984048 No Longer Active Shaun Sy MD Active TRAMADOL HCL 50 MG TABS 1-2 tablets every 6 hours as needed for pain TRAMADOL HCL 80923804116 Active Tu Landeros MD Active HYDROCODONE-ACETAMINOPHEN 5-325 MG TABS 1 tab by mouth every 6 hours as needed for pain HYDROCODONE-ACETAMINOPHEN 09666604870 No Longer Active Tu Landeros MD Active OMEPRAZOLE 20 MG CPDR 1 po q a.m. OMEPRAZOLE 69837786982 Active Tu Landeros MD Active GABAPENTIN 100 MG CAPS 1 po bid GABAPENTIN 51475552767 No Longer Active Tu Landeros MD Active B-12 100 MCG TABS Take one by mouth daily CYANOCOBALAMIN 92619842072 No Longer Active Tu Landeros MD Active GABAPENTIN 100 MG CAPS by mouth twice a day GABAPENTIN 11123419720 Active Tiffanie Doyle Active BACTRIM DS 800-160 MG TABS 1 bid x 14 day start 5-8-14 2014/11/ 10 SULFAMETHOXAZOLE-TRIMETHOPRIM 30885070747 No Longer Active Tu Landeros MD Active CARVEDILOL 12.5 MG TABS 1 po BID CARVEDILOL 81062845391 Active Tu Landeros MD Active SUPER B COMPLEX/VITAMIN C TABS 1 qd B COMPLEX-C 46214190538 Active JASPREET Perez Active TRILIPIX 135 MG CPDR 1 q hs CHOLINE FENOFIBRATE 16821838440 Active Tu Landeros MD Active FENOFIBRATE 145 MG TABS 1 po qd FENOFIBRATE 97562169514 No Longer Active JASPREET Perez Active OMEPRAZOLE 20 MG TBEC 1 PO 30 MIN BEFORE 1ST MEAL OMEPRAZOLE 46253967397 No Longer Active JASPREET Perez Active SIMVASTATIN 40 MG TABS Take one by mouth daily SIMVASTATIN 98565289270 No Longer Active JASPREET Perez Active VENLAFAXINE HCL 37.5 MG TABS 1 bid VENLAFAXINE HCL 38072728805 Active Tu Landeros MD Active VENLAFAXINE HCL 75 MG TABS 1 po BID VENLAFAXINE HCL 07731963224 No Longer Active JASPREET Perez Active CIPRO 500 MG TAB 1 tablet by mouth twice daily CIPROFLOXACIN HCL 37028173061 No Longer Active Tu Landeros MD Active VENLAFAXINE HCL 37.5 MG TABS 1 po BID VENLAFAXINE HCL 16816158379 No Longer Active Suze Corey RMMahendra Active LAMISIL 250 MG TAB 1 po qd TERBINAFINE HCL 93494671936 No Longer Active Tu Landeros MD Active LORTAB 5 5-500 MG TABS 1/2 to 1 tablet by mouth every 4 hours as needed for pain HYDROCODONE-ACETAMINOPHEN 73844324924 No Longer Active Tu Landeros MD Active ENALAPRIL MALEATE 20 MG TABS 1.5 po qd ENALAPRIL MALEATE 93385514671 Active Tu Landeros MD Active HYDROCODONE-ACETAMINOPHEN 5-500 MG TABS take one po Q 4-6 hours prn HYDROCODONE-ACETAMINOPHEN 34347925010 No Longer Active Tu Landeros MD Active BACTRIM DS 800-160 MG TABS 1 po BID x 7 days SULFAMETHOXAZOLE-TRIMETHOPRIM 94925473377 No Longer Active Tu Landeros MD Active VENLAFAXINE HCL 75 MG TABS 1 po BID VENLAFAXINE HCL 85995842127 No Longer Active Elvira Cervantes MD PhD Active TRAMADOL HCL 50 MG TABS 1 tablets every 6 hours as needed for pain TRAMADOL HCL 64805031657 No Longer Active Tu Landeros MD Active ACCU-CHEK FASTCLIX LANCETS MISC Use to check bloodsugar three times daily as needed LANCETS 76626887451 No Longer Active Tu Landeros MD Active ACCU-CHEK KEYONA PLUS STRP Use for testing bloodsugars three times daily as needed GLUCOSE BLOOD 48163066088 No Longer Active Tu Landeros MD Active ACCU-CHEK KEYONA PLUS W/DEVICE KIT Use for testing bloodsugars three times daily as needed BLOOD GLUCOSE MONITORING SUPPL 37197072178 No Longer Active Tu Landeros MD Active SPIRONOLACTONE 25 MG TAB 0.5 tablet by mouth daily SPIRONOLACTONE 37474137633 No Longer Active Tu Landeros MD Active ALPRAZOLAM 0.5 MG TABS 1 tab every 6hrs as needed ALPRAZOLAM 41395551046 No Longer Active Tu Landeros MD Active AUGMENTIN 875-125 MG TAB 1 tab by mouth twice daily with food AMOXICILLIN-POT CLAVULANATE 39568725414 No Longer Active Tu Landeros MD Active PREDNISONE 20 MG TAB 2 tabs daily for 3 days, 1 tab daily for 3 days, 1/2 tab daily for 2 days PREDNISONE 62220327185 No Longer Active Tu Landeros MD Active XANAX 0.5 MG TABS 1 tablet every 6 hrs prn ALPRAZOLAM 18046197032 No Longer Active Tu Landeros MD Active PREDNISONE 20 MG TAB 2 tabs daily for 3 days, 1 tab daily for 3 days, 1/2 tab daily for 2 days PREDNISONE 90414374260 No Longer Active Tu Landeros MD Active TRIAMCINOLONE ACETONIDE 0.1 % OINT Apply to affected areas TID for up to 2 weeks TRIAMCINOLONE ACETONIDE 72924435918 No Longer Active Tu Landeros MD Active LORTAB 5 5-500 MG TABS 1/2 to 1 tablet by mouth every 4 hours as needed for pain HYDROCODONE-ACETAMINOPHEN 30567966730 No Longer Active Tu Landeros MD Active MULTIVITAMINS TABS Take one by mouth daily MULTIPLE VITAMIN 06043326896 No Longer Active Tu Landeros MD Active MELATONIN 5 MG TABS Take one by mouth daily MELATONIN 52178035502 No Longer Active Tu Landeros MD Active SOMA 350 MG TAB 1 po q 6 hours prn spasm CARISOPRODOL 70656427156 No Longer Active Tu Landeros MD Active MECLIZINE HCL 25 MG CHEW TAB 1 four times a day as needed for dizziness 08/05 MECLIZINE HCL 06620762699 No Longer Active Fab Morales DO Active ANGEL BREEZE 2 TEST DISK test tid prn GLUCOSE BLOOD 15329420299 No Longer Active Negra Scott RN Active REGLAN 10 MG TAB 1 po TID PRN Nausea METOCLOPRAMIDE HCL 20956218804 No Longer Active Tu Landeros MD Active METFORMIN HCL 500 MG TABS 1 PO BID METFORMIN HCL 37971718959 No Longer Active Tu Landeros MD Active AMBIEN 10 MG TAB 1 tab by mouth at bedtime as needed for sleep ZOLPIDEM TARTRATE 41423504911 No Longer Active Tu Landeros MD Active FLUOXETINE HCL 40 MG CAPS 1 po q day FLUOXETINE HCL 58517877278 No Longer Active Mayra Terry Active FISH OIL 1000 MG CAPS Take one by mouth daily OMEGA-3 FATTY ACIDS 22568740270 Active Tu Landeros MD Active GLUCOSAMINE 500 MG TABS Take 2 tab po qd GLUCOSAMINE 94980823163 Active Tu Landeros MD Active TRILIPIX 135 MG CPDR 1 po qd CHOLINE FENOFIBRATE 06321753547 No Longer Active Tu Landeros MD Active ASPIRIN 81 MG CHEW TAB 1 tablet by mouth daily ASPIRIN 13052299646 Active Tu Landeros MD Active FUROSEMIDE 40 MG TAB 1 tablet by mouth daily FUROSEMIDE 89168492200 Active Tu Landeros MD Active REQUIP 2 MG TABS Take one tablet at bedtime prn ROPINIROLE HCL 56742537942 Active Tu Landeros MD Active KLOR-CON 10 10 MEQ CR-TABS TAKE 2 TABS DAILY POTASSIUM CHLORIDE 96987004857 Active Tu Landeros MD Active AMBIEN 10 MG TAB 1 tab by mouth at bedtime as needed for sleep AMBIEN 10 MG TAB 881690 ZOLPIDEM TARTRATE Inactive METFORMIN HCL 500 MG TABS 1 PO BID METFORMIN HCL 500 MG TABS 742424 METFORMIN HCL Inactive REGLAN 10 MG TAB 1 po TID PRN Nausea REGLAN 10 MG TAB 223749 METOCLOPRAMIDE HCL Inactive MECLIZINE HCL 25 MG CHEW TAB 1 four times a day as needed for dizziness 08/05 MECLIZINE HCL 25 MG CHEW TAB 336307 MECLIZINE HCL Inactive SOMA 350 MG TAB 1 po q 6 hours prn spasm SOMA 350 MG TAB 361117 CARISOPRODOL Inactive MELATONIN 5 MG TABS Take one by mouth daily MELATONIN 5 MG TABS 844363 MELATONIN Inactive MULTIVITAMINS TABS Take one by mouth daily MULTIVITAMINS TABS MULTIPLE VITAMIN Inactive LORTAB 5 5-500 MG TABS 1/2 to 1 tablet by mouth every 4 hours as needed for pain LORTAB 5 5-500 MG TABS HYDROCODONE- ACETAMINOPHEN Inactive XANAX 0.5 MG TABS 1 tablet every 6 hrs prn XANAX 0.5 MG TABS 246907 ALPRAZOLAM Inactive AUGMENTIN 875-125 MG TAB 1 tab by mouth twice daily with food AUGMENTIN 875-125 MG TAB 290637 AMOXICILLIN-POT CLAVULANATE Inactive ALPRAZOLAM 0.5 MG TABS 1 tab every 6hrs as needed ALPRAZOLAM 0.5 MG TABS 802314 ALPRAZOLAM Inactive SPIRONOLACTONE 25 MG TAB 0.5 tablet by mouth daily SPIRONOLACTONE 25 MG TAB 665012 SPIRONOLACTONE Inactive ACCU-CHEK KEYONA PLUS W/DEVICE KIT Use for testing bloodsugars three times daily as needed ACCU-CHEK KEYONA PLUS W/DEVICE KIT BLOOD GLUCOSE MONITORING SUPPL Inactive ACCU-CHEK KEYONA PLUS STRP Use for testing bloodsugars three times daily as needed ACCU-CHEK KEYONA PLUS STRP GLUCOSE BLOOD Inactive ACCU-CHEK FASTCLIX LANCETS MISC Use to check bloodsugar three times daily as needed ACCU-CHEK FASTCLIX LANCETS MISC 35232210289 LANCETS Inactive TRAMADOL HCL 50 MG TABS 1 tablets every 6 hours as needed for pain TRAMADOL HCL 50 MG TABS 382913 TRAMADOL HCL Inactive VENLAFAXINE HCL 75 MG TABS 1 po BID VENLAFAXINE HCL 75 MG TABS 609714 VENLAFAXINE HCL Inactive HYDROCODONE-ACETAMINOPHEN 5-500 MG TABS take one po Q 4-6 hours prn HYDROCODONE-ACETAMINOPHEN 5-500 MG TABS HYDROCODONE- ACETAMINOPHEN Inactive LORTAB 5 5-500 MG TABS 1/2 to 1 tablet by mouth every 4 hours as needed for pain LORTAB 5 5-500 MG TABS HYDROCODONE- ACETAMINOPHEN Inactive LAMISIL 250 MG TAB 1 po qd LAMISIL 250 MG TAB 854159 TERBINAFINE HCL Inactive VENLAFAXINE HCL 37.5 MG TABS 1 po BID VENLAFAXINE HCL 37.5 MG TABS 068101 VENLAFAXINE HCL Inactive CIPRO 500 MG TAB 1 tablet by mouth twice daily CIPRO 500 MG TAB 810472 CIPROFLOXACIN HCL Inactive VENLAFAXINE HCL 75 MG TABS 1 po BID VENLAFAXINE HCL 75 MG TABS 767354 VENLAFAXINE HCL Inactive SIMVASTATIN 40 MG TABS Take one by mouth daily SIMVASTATIN 40 MG TABS 909349 SIMVASTATIN Inactive OMEPRAZOLE 20 MG TBEC 1 PO 30 MIN BEFORE 1ST MEAL OMEPRAZOLE 20 MG TBEC 434476 OMEPRAZOLE Inactive FENOFIBRATE 145 MG TABS 1 po qd FENOFIBRATE 145 MG TABS 634789 FENOFIBRATE Inactive BACTRIM DS 800-160 MG TABS 1 bid x 14 day start 09-28-13 BACTRIM DS 800-160 MG TABS 756873 SULFAMETHOXAZOLE-TRIMETHOPRIM Inactive B-12 100 MCG TABS Take one by mouth daily B-12 100 MCG TABS CYANOCOBALAMIN Inactive GABAPENTIN 100 MG CAPS 1 po bid GABAPENTIN 100 MG CAPS 883477 GABAPENTIN Inactive HYDROCODONE-ACETAMINOPHEN 5-325 MG TABS 1 tab by mouth every 6 hours as needed for pain HYDROCODONE-ACETAMINOPHEN 5-325 MG TABS 819198 HYDROCODONE-ACETAMINOPHEN Inactive CIPRO 500 MG TABS 1 bid x 14 days start 09-28-13 CIPRO 500 MG TABS 240573 CIPROFLOXACIN HCL Inactive ALIGN 4 MG CAPS [...] as needed DICLOFENAC SODIUM 50 MG TBEC 866103 DICLOFENAC SODIUM Inactive PREDNISONE 20 MG TAB 2 tablets once daily for 2 days, then 1 tablet once daily for 2 days PREDNISONE 20 MG TAB 418276 PREDNISONE Inactive TRUEDRAW LANCING DEVICE MISC Test [...] 2 weeks TRIAMCINOLONE ACETONIDE 0.1 % OINT 6566448 TRIAMCINOLONE ACETONIDE Inactive PREDNISONE 20 MG TAB 2 tabs daily for 3 days, 1 tab daily for 3 days, 1/2 tab daily for 2 days PREDNISONE 20 MG TAB 906041 PREDNISONE Inactive PREDNISONE 20 MG TAB 2 tabs daily for 3 days, 1 tab daily for 3 days, 1/2 tab daily for 2 days PREDNISONE 20 MG TAB 296582 PREDNISONE Inactive BACTRIM DS 800-160 MG TABS 1 po BID x 7 days BACTRIM DS 800-160 MG TABS 870358 SULFAMETHOXAZOLE-TRIMETHOPRIM Inactive ZITHROMAX 250 MG TAB 2 po today, then 1 po q days 2-5 ZITHROMAX 250 MG TAB 8914303 AZITHROMYCIN Inactive Advance Directives Directive Description Start Date DISCUSSED WITH PATIENT -- NO DECISION MADE Immunizations Vaccine Administration Date Value Standard Description Seasonal influenza vaccine, injectable, containing preservative, for > 3 years old (Afluria, FluLaval, Fluzone, Fluvirin, Fluarix, Agriflu(>=18 yo)) Fluzone (>3 yrs.) [QUR660] Influenza, seasonal, injectable influenza immunization (Flu Vax) has been administered 02/22/2012 influenza virus vaccine, unspecified formulation Seasonal influenza vaccine, injectable, containing preservative, for > 3 years old (Afluria, FluLaval, Fluzone, Fluvirin, Fluarix, Agriflu(>=18 yo)) Fluzone (>3 yrs.) [DYC503] Influenza, seasonal, injectable Vital Signs Date Name [...] mg/g mg/g{creat} 0-29 sodium, serum 142 mmol/L 654-943 1626/10/08 potassium, serum 4.5 mmol/L 3.5-5.2 chloride, serum [...] 7.4 % 4.3-6.0 sodium, serum 140 mmol/L 899-736 5965/09/07 potassium, serum 4.3 mmol/L 3.5-5.2 chloride, serum 104 mmol/L 98-107 carbon dioxide, venous blood 27.7 mmol/L 21.0-32.0 blood glucose 156 mg/dL 65-110 calcium, serum 9.3 mg/dL 8.5-10.1 urea nitrogen, blood 23 mg/dL - creatinine, serum 1.21 mg/dL 0.55-1.30 hemoglobin A1C, blood, as % of total hemoglobin 7.7 % 4.3-6.0 Lab Report: Lipid Panel, Comp. Metabolic Panel - Chemistry cholesterol, serum 124 mg/dL 711-432 5116/01/12 triglyceride, serum, fasting 135 mg/dL 30-200 HDL cholesterol, serum 41 mg/dL 32-96 LDL cholesterol, serum 56 mg/dL 0-130 sodium, serum 140 mmol/L 476-117 1158/01/12 carbon dioxide, venous blood 27.7 mmol/L 21.0-32.0 potassium, serum 4.5 mmol/L 3.5-5.2 chloride, serum 104 mmol/L 98-107 blood glucose 139 mg/dL 65-110 urea nitrogen, blood 16 mg/dL 7-18 alanine aminotransferase (SGPT), serum 32 U/L 12-78 aspartate aminotransferase (SGOT), serum 25 U/L 15-37 calcium, serum 9.1 mg/dL 8.5-10.1 bilirubin, serum, total 0.50 mg/dL 0.00-1.00 Encounters Code Encounter Date Provider Facility CPT-69071 Level 4 Est. Patient 14:06:04 INSECTICIDE SPRAYER Tu Landeros MD [facility] CPT-41181 Level 3 Est. Patient 14:05:18 INSECTICIDE SPRAYER Tu Landeros MD [facility] CPT-36698 Level 3 Est. Patient 10:06:54 INSECTICIDE SPRAYER Miranda Suresh APRN [facility] CPT-17909 Level 4 Est. Patient 13:50:18 INSECTICIDE SPRAYER Tu Landeros MD [facility] CPT-44412 Level 3 Est. Patient 10:30:04 CDT Tu Landeros MD [facility] CPT-52816 Level 4 Est. Patient 11:03:38 CDT Tu Landeros MD [facility] CPT-75180 Level 3 Est. Patient 10:20:44 CDT Fab Morales DO [facility] CPT-19347 Level 4 Est. Patient 14:38:57 CDT Tu Landeros MD [facility] CPT-91722 Level 4 Est. Patient 14:27:39 INSECTICIDE SPRAYER Tu Landeros MD [facility] CPT-13346 Level 4 Est. Patient 09:45:25 CDT Tu Landeros MD [facility] CPT-30379 Level 4 Est. Patient 09:05:20 INSECTICIDE SPRAYER Tu Landeros MD [facility] CPT-21923 Level 4 Est. Patient 14:09:06 CDT Tu Landeros MD [facility] CPT-30865 Level 3 Est. Patient 13:36:54 CDT Tu Landeros MD [facility] CPT-16820 Level 3 Est. Patient 08:59:14 CDT Tu Landeros MD [facility] CPT-97984 Level 3 Est. Patient 13:48:35 CDT Fab Morales DO [facility] CPT-95854 Level 4 Est. Patient 10:05:48 CDT Tu Landeros MD [facility] CPT-81801 Level 3 Est. Patient 13:38:42 CDT Marek BANKS [facility] CPT-45854 Level 5 Est. Patient 08:08:39 CDT Jerrica Dawsontay FRANCIS [facility] CPT-68565 Level 4 Est. Patient 14:23:38 CDT uT Landeros MD [facility] CPT-38777 Level 3 Est. Patient 11:44:04 CDT Tu Landeros MD [facility] CPT-38905 Level 3 Est. Patient 11:03:20 INSECTICIDE SPRAYER Tu Landeros MD [facility] CPT-02236 Level 3 Est. Patient 11:03:14 INSECTICIDE SPRAYER Tu Landeros MD [facility] CPT-86483 Level 3 Est. Patient 12:42:49 CDT Tu Landeros MD [facility] CPT-43816 Level 3 Est. Patient 11:52:06 CDT Tu Landeros MD [facility] CPT-58951 Level 3 Est. Patient 13:58:11 CDT Tu Landeros MD [facility] CPT-03081 Level 3 Est. Patient 17:50:07 CDT Fab Morales DO [facility] CPT-33301 Level 3 Est. Patient 12:06:29 CDT Elvira Cervantes MD PhD [facility] CPT-99010 Level 3 Est. Patient 15:50:32 CDT Tu Landeros MD [facility] CPT-86355 Level 4 Est. Patient 16:08:29 CDT Tu Landeros MD [facility] CPT-00752 Level 3 Est. Patient 16:04:19 CDT Tu Landeros MD [facility] CPT-99815 Level 3 Est. Patient 11:22:30 INSECTICIDE SPRAYER Tu Landeros MD [facility] CPT-00051 Level 4 Est. Patient 16:24:02 INSECTICIDE SPRAYER Tu Landeros MD [facility] CPT-41696 Level 3 Est. Patient 17:21:23 INSECTICIDE SPRAYER Tu Landeros MD [facility] Procedures Code Procedure Name Date Entry Date Standard Description CPT-80551 CBC - LAB USE ONLY 17:14:46 CDT CPT-08385 HGBA1C - LAB USE ONLY 17:14:46 CDT CPT-65554 Venipuncture Draw Fee 17:14:46 CDT CPT-G0438 Initial Annual Wellness Exam 14:13:04 CDT CPT-94825 Breathing Tx 10:06:54 INSECTICIDE SPRAYER CPT-23825 Postop F/U Visit 10:02:45 CDT CPT-LR Lesion Removal 09:02:56 CDT CPT-JTINJ Asp/Joint Injection 15:51:27 INSECTICIDE SPRAYER CPT-OV Office Visit 15:52:02 INSECTICIDE SPRAYER CPT-OV Office Visit 15:45:11 CDT CPT-000 Give Zostavax 14:09:06 CDT CPT-94052 Administration single or combination vaccine inc oral 15 :19:04 CDT CPT-41449 Zoster Vaccine (Zostavax) 15:19:04 CDT CPT-53838 Administration single or combination vaccine inc oral 20 :51:03 CDT CPT-87837 Influenza split virus > age 3 20:51:03 CDT CPT-87767 No Charge Offi Visit 14:52:03 CDT CPT-OV Office Visit 14:57:43 CDT CPT-OV Office Visit 15:22:32 CDT CPT-32815 Administration single or combination vaccine inc oral 11 :33:15 CDT CPT-69497 Influenza split virus > age 3 11:33:15 CDT
--- OUTSIDE RECORDS SUMMARY | 2018-04-25 14:28 | XMS REPORT | Clinical Summary ---
Author Author Admin, SACHI Organization [email or web address] Address Unknown Phone Unavailable Allergies, Adverse Reactions, [...] 1 po BID PRN Pain DICLOFENAC SODIUM 11511508605 Active Tu Landeros MD Active GABAPENTIN 100 MG CAPS 1 po TID GABAPENTIN 52672035596 Active Tu Landeros MD Active DICLOFENAC SODIUM 50 MG ORAL TBEC 1 po BID PRN Pain DICLOFENAC SODIUM 81890730799 No Longer Active Tu Landeros MD Active CYCLOBENZAPRINE HCL 10 MG ORAL TABS 1 po TID PRN Muscle Spasm CYCLOBENZAPRINE HCL 63908110059 No Longer Active Tu Landeros MD Active INVOKANA 100 MG ORAL TABS 1 po qd CANAGLIFLOZIN 87296253779 Active Tu Landeros MD Active GLIPIZIDE 5 MG ORAL TABS 1 po qd GLIPIZIDE 56579541136 No Longer Active Tu Landeros MD Active VENLAFAXINE HCL 75 MG ORAL TABS 1 po BID VENLAFAXINE HCL 12921508426 Active Tu Landeros MD Active GLIMEPIRIDE 1 MG ORAL TABS 1 po qd GLIMEPIRIDE 44301800745 No Longer Active Tu Landeros MD Active TRUE METRIX BLOOD GLUCOSE TEST INVITR STRP Test blood sugar BID Dx: E11.9 GLUCOSE BLOOD 63218352691 Active Tu Landeros MD Active TRUE METRIX AIR GLUCOSE METER W/DEVICE KIT Test blood glucose BID Dx: E11.9 BLOOD GLUCOSE MONITORING SUPPL 16749134113 Active Tu Landeros MD Active TRUETEST TEST INVITR STRP test blood sugar twice daily. DX 250.0 GLUCOSE BLOOD 61130767388 No Longer Active Mirna Stanley LPN Active TRUEDRAW LANCING DEVICE MISC test blood sugar twice daily dx: 250.00 LANCET DEVICES 48316481997 No Longer Active Mirna Stanley LPN Active ENALAPRIL MALEATE 20 MG TABS 2 po qd ENALAPRIL MALEATE 50472422732 Active Lesli Kellogg APRN Active SUPER B COMPLEX/VITAMIN C TABS 1 qd B COMPLEX-C 33531982286 No Longer Active Tu Landeros MD Active ASPIRIN EC 81 MG ORAL TBEC 1 po qd ASPIRIN 20608183962 Active Tu Landeros MD Active GLUCOSAMINE 500 MG TABS 2 po qd GLUCOSAMINE Active Tu Landeros MD Active SIMVASTATIN 40 MG TABS 0.5 po qHS SIMVASTATIN 99500375667 Active Tu Lanedros MD Active FISH OIL 1000 MG CAPS 1 po qd OMEGA-3 FATTY ACIDS 39950719238 Active Tu Landeros MD Active METFORMIN HCL 1000 MG TABS 1 po BID METFORMIN HCL 16082080983 Active Tu Landeros MD Active KLOR-CON 10 10 MEQ CR-TABS 2 po qd POTASSIUM CHLORIDE 66989936277 Active Tu Landeros MD Active FUROSEMIDE 40 MG TAB 1 po qd FUROSEMIDE 54403288642 Active Tu Landeros MD Active REQUIP 2 MG ORAL TABS 1 po qHS PRN Restless legs ROPINIROLE HCL 74146256307 Active Tu Landeros MD Active REQUIP 2 MG TABS Take one tablet at bedtime prn ROPINIROLE HCL 67846457228 No Longer Active Tu Landeros MD Active VENTOLIN HFA 108 (90 BASE) MCG/ACT AERS 1-2 puffs every 4 hours if needed for cough/congestion ALBUTEROL SULFATE 80747800473 No Longer Active Ambika Aden APRN Active ZITHROMAX 250 MG TAB 2 po today, then 1 po q days 2-5 AZITHROMYCIN 01520952667 No Longer Active Miranda Suresh APRN Active FLONASE 50 MCG/ACT SUSP 1 spray each nostril twice daily until bottle empty FLUTICASONE PROPIONATE 77596597975 No Longer Active Tu Landeros MD Active COLACE 100 MG CAP 1 po BID PRN Constipation DOCUSATE SODIUM 91802218382 Active Tu Landeros MD Active TRUERESULT BLOOD GLUCOSE W/DEVICE KIT test blood sugar twice daily dx 250.00 BLOOD GLUCOSE MONITORING SUPPL 42047775131 No Longer Active Tu Landeros MD Active TRUEDRAW LANCING DEVICE MISC Test twice a day dx 250.0 LANCET DEVICES 25587412091 No Longer Active Tu Landeros MD Active PREDNISONE 20 MG TAB 2 tablets once daily for 2 days, then 1 tablet once daily for 2 days PREDNISONE 92542880668 No Longer Active Tu Landeros MD Active DICLOFENAC SODIUM 50 MG TBEC 1 tablet by mouth three times a day as needed DICLOFENAC SODIUM 94087543199 No Longer Active Fab Morales DO Active EMBRACE BLOOD GLUCOSE TEST STRP test blood sugar twice daily DX 250.0 2014 GLUCOSE BLOOD 32214747406 No Longer Active Tu Landeros MD Active TRUETEST TEST STRP test blood sugar three times daily dx: 250.00 GLUCOSE BLOOD 79037493408 No Longer Active Suze Nicole RMMahendra Active TRUERESULT BLOOD GLUCOSE W/DEVICE KIT use to test blood sugar tid dx: 250.00 BLOOD GLUCOSE MONITORING SUPPL 83217361853 No Longer Active Suze Corey RMA Active ALIGN 4 MG CAPS 1 tid PROBIOTIC PRODUCT 54775207838 No Longer Active Shaun Sy MD Active CIPRO 500 MG TABS 1 bid x 14 days start 09-28-13 CIPROFLOXACIN HCL 65828848159 No Longer Active Shaun Sy MD Active TRAMADOL HCL 50 MG TABS 1-2 tablets every 6 hours as needed for pain TRAMADOL HCL 10281669390 Active Tu Landeros MD Active HYDROCODONE-ACETAMINOPHEN 5-325 MG TABS 1 tab by mouth every 6 hours as needed for pain HYDROCODONE-ACETAMINOPHEN 42615908984 No Longer Active Tu Landeros MD Active OMEPRAZOLE 20 MG CPDR 1 po q a.m. OMEPRAZOLE 83235483726 Active Fab Morales DO Active GABAPENTIN 100 MG CAPS 1 po bid GABAPENTIN 43422674647 No Longer Active Tu Landeros MD Active B-12 100 MCG TABS Take one by mouth daily CYANOCOBALAMIN 27742104886 No Longer Active Tu Landeros MD Active BACTRIM DS 800-160 MG TABS 1 bid x 14 day start 09-28-13 SULFAMETHOXAZOLE-TRIMETHOPRIM 20928789439 No Longer Active Tu Landeros MD Active CARVEDILOL 12.5 MG TABS 1 po BID CARVEDILOL 16329822473 Active Lesli Kellogg APRN Active TRILIPIX 135 MG CPDR 1 q hs CHOLINE FENOFIBRATE 86729295867 Active Tu Landeros MD Active FENOFIBRATE 145 MG TABS 1 po qd FENOFIBRATE 31919731225 No Longer Active JASPREET Perez Active OMEPRAZOLE 20 MG TBEC 1 PO 30 MIN BEFORE 1ST MEAL OMEPRAZOLE 64891386680 No Longer Active JASPREET Perez Active SIMVASTATIN 40 MG TABS Take one by mouth daily SIMVASTATIN 63583798156 No Longer Active JASPREET Perez Active VENLAFAXINE HCL 75 MG TABS 1 po BID VENLAFAXINE HCL 08319466823 No Longer Active JASPREET Perez Active CIPRO 500 MG TAB 1 tablet by mouth twice daily CIPROFLOXACIN HCL 45529064490 No Longer Active Tu Landeros MD Active VENLAFAXINE HCL 37.5 MG TABS 1 po BID VENLAFAXINE HCL 74925588496 No Longer Active Suzebianca Nicole RMA Active LAMISIL 250 MG TAB 1 po qd TERBINAFINE HCL 30228122665 No Longer Active Tu Landeros MD Active LORTAB 5 5-500 MG TABS 1/2 to 1 tablet by mouth every 4 hours as needed for pain HYDROCODONE-ACETAMINOPHEN 62718277815 No Longer Active Tu Landeros MD Active HYDROCODONE-ACETAMINOPHEN 5-500 MG TABS take one po Q 4-6 hours prn HYDROCODONE-ACETAMINOPHEN 57594381190 No Longer Active Tu Landeros MD Active BACTRIM DS 800-160 MG TABS 1 po BID x 7 days SULFAMETHOXAZOLE-TRIMETHOPRIM 84051835588 No Longer Active Tu Landeros MD Active VENLAFAXINE HCL 75 MG TABS 1 po BID VENLAFAXINE HCL 55668959056 No Longer Active Elvira Cervantes MD PhD Active TRAMADOL HCL 50 MG TABS 1 tablets every 6 hours as needed for pain TRAMADOL HCL 20191456142 No Longer Active Tu Landeros MD Active ACCU-CHEK FASTCLIX LANCETS MISC Use to check bloodsugar three times daily as needed LANCETS 93639436111 No Longer Active Tu Landeros MD Active ACCU-CHEK KEYONA PLUS STRP Use for testing bloodsugars three times daily as needed GLUCOSE BLOOD 32337909401 No Longer Active Tu Landeros MD Active ACCU-CHEK KEYONA PLUS W/DEVICE KIT Use for testing bloodsugars three times daily as needed BLOOD GLUCOSE MONITORING SUPPL 65692288731 No Longer Active Tu Landeros MD Active SPIRONOLACTONE 25 MG TAB 0.5 tablet by mouth daily SPIRONOLACTONE 93938414602 No Longer Active Tu Landeros MD Active ALPRAZOLAM 0.5 MG TABS 1 tab every 6hrs as needed ALPRAZOLAM 97706031913 No Longer Active Tu Landeros MD Active AUGMENTIN 875-125 MG TAB 1 tab by mouth twice daily with food AMOXICILLIN-POT CLAVULANATE 08051796330 No Longer Active Tu Landeros MD Active PREDNISONE 20 MG TAB 2 tabs daily for 3 days, 1 tab daily for 3 days, 1/2 tab daily for 2 days PREDNISONE 97520786992 No Longer Active Tu Landeros MD Active XANAX 0.5 MG TABS 1 tablet every 6 hrs prn ALPRAZOLAM 86093581395 No Longer Active Tu Landeros MD Active PREDNISONE 20 MG TAB 2 tabs daily for 3 days, 1 tab daily for 3 days, 1/2 tab daily for 2 days PREDNISONE 74822384761 No Longer Active Tu Landeros MD Active TRIAMCINOLONE ACETONIDE 0.1 % OINT Apply to affected areas TID for up to 2 weeks TRIAMCINOLONE ACETONIDE 33858936006 No Longer Active Tu Landeros MD Active LORTAB 5 5-500 MG TABS 1/2 to 1 tablet by mouth every 4 hours as needed for pain HYDROCODONE-ACETAMINOPHEN 42429719617 No Longer Active Tu Landeros MD Active MULTIVITAMINS TABS Take one by mouth daily MULTIPLE VITAMIN 14446063478 No Longer Active Tu Landeros MD Active MELATONIN 5 MG TABS Take one by mouth daily MELATONIN 04141729954 No Longer Active Tu Landeros MD Active SOMA 350 MG TAB 1 po q 6 hours prn spasm CARISOPRODOL 36257263239 No Longer Active Tu Landeros MD Active MECLIZINE HCL 25 MG CHEW TAB 1 four times a day as needed for dizziness 08/05 MECLIZINE HCL 12995153298 No Longer Active Fab Morales DO Active ANGEL BREEZE 2 TEST DISK test tid prn GLUCOSE BLOOD 39646028382 No Longer Active Negra Scott RN Active REGLAN 10 MG TAB 1 po TID PRN Nausea METOCLOPRAMIDE HCL 50375714233 No Longer Active Tu Landeros MD Active METFORMIN HCL 500 MG TABS 1 PO BID METFORMIN HCL 83835637645 No Longer Active Tu Landeros MD Active AMBIEN 10 MG TAB 1 tab by mouth at bedtime as needed for sleep ZOLPIDEM TARTRATE 04826255702 No Longer Active Tu Landeros MD Active FLUOXETINE HCL 40 MG CAPS 1 po q day FLUOXETINE HCL 76860524790 No Longer Active Mayra Terry Active TRILIPIX 135 MG CPDR 1 po qd CHOLINE FENOFIBRATE 88301486529 No Longer Active Tu Landeros MD Active AMBIEN 10 MG TAB 1 tab by mouth at bedtime as needed for sleep AMBIEN 10 MG TAB 196762 ZOLPIDEM TARTRATE Inactive METFORMIN HCL 500 MG TABS 1 PO BID METFORMIN HCL 500 MG TABS 229184 METFORMIN HCL Inactive REGLAN 10 MG TAB 1 po TID PRN Nausea REGLAN 10 MG TAB 636445 METOCLOPRAMIDE HCL Inactive MECLIZINE HCL 25 MG CHEW TAB 1 four times a day as needed for dizziness 08/05 MECLIZINE HCL 25 MG CHEW TAB 419595 MECLIZINE HCL Inactive SOMA 350 MG TAB 1 po q 6 hours prn spasm SOMA 350 MG TAB 490666 CARISOPRODOL Inactive MELATONIN 5 MG TABS Take one by mouth daily MELATONIN 5 MG TABS 266246 MELATONIN Inactive MULTIVITAMINS TABS Take one by mouth daily MULTIVITAMINS TABS MULTIPLE VITAMIN Inactive LORTAB 5 5-500 MG TABS 1/2 to 1 tablet by mouth every 4 hours as needed for pain LORTAB 5 5-500 MG TABS 789882 HYDROCODONE- ACETAMINOPHEN Inactive XANAX 0.5 MG TABS 1 tablet every 6 hrs prn XANAX 0.5 MG TABS 649283 ALPRAZOLAM Inactive AUGMENTIN 875-125 MG TAB 1 tab by mouth twice daily with food AUGMENTIN 875-125 MG TAB 631180 AMOXICILLIN-POT CLAVULANATE Inactive ALPRAZOLAM 0.5 MG TABS 1 tab every 6hrs as needed ALPRAZOLAM 0.5 MG TABS 226411 ALPRAZOLAM Inactive SPIRONOLACTONE 25 MG TAB 0.5 tablet by mouth daily SPIRONOLACTONE 25 MG TAB 094141 SPIRONOLACTONE Inactive ACCU-CHEK KEYONA PLUS W/DEVICE KIT Use for testing bloodsugars three times daily as needed ACCU-CHEK KEYONA PLUS W/DEVICE KIT BLOOD GLUCOSE MONITORING SUPPL Inactive ACCU-CHEK KEYONA PLUS STRP Use for testing bloodsugars three times daily as needed ACCU-CHEK KEYONA PLUS STRP GLUCOSE BLOOD Inactive ACCU-CHEK FASTCLIX LANCETS MISC Use to check bloodsugar three times daily as needed ACCU-CHEK FASTCLIX LANCETS MISC 52169009156 LANCETS Inactive TRAMADOL HCL 50 MG TABS 1 tablets every 6 hours as needed for pain TRAMADOL HCL 50 MG TABS 460200 TRAMADOL HCL Inactive VENLAFAXINE HCL 75 MG TABS 1 po BID VENLAFAXINE HCL 75 MG TABS 518555 VENLAFAXINE HCL Inactive HYDROCODONE-ACETAMINOPHEN 5-500 MG TABS take one po Q 4-6 hours prn HYDROCODONE-ACETAMINOPHEN 5-500 MG TABS 536182 HYDROCODONE- ACETAMINOPHEN Inactive LORTAB 5 5-500 MG TABS 1/2 to 1 tablet by mouth every 4 hours as needed for pain LORTAB 5 5-500 MG TABS 706153 HYDROCODONE- ACETAMINOPHEN Inactive LAMISIL 250 MG TAB 1 po qd LAMISIL 250 MG TAB 461479 TERBINAFINE HCL Inactive VENLAFAXINE HCL 37.5 MG TABS 1 po BID VENLAFAXINE HCL 37.5 MG TABS 259536 VENLAFAXINE HCL Inactive CIPRO 500 MG TAB 1 tablet by mouth twice daily CIPRO 500 MG TAB 717569 CIPROFLOXACIN HCL Inactive VENLAFAXINE HCL 75 MG TABS 1 po BID VENLAFAXINE HCL 75 MG TABS 791751 VENLAFAXINE HCL Inactive SIMVASTATIN 40 MG TABS Take one by mouth daily SIMVASTATIN 40 MG TABS 849294 SIMVASTATIN Inactive OMEPRAZOLE 20 MG TBEC 1 PO 30 MIN BEFORE 1ST MEAL OMEPRAZOLE 20 MG TBEC 434486 OMEPRAZOLE Inactive FENOFIBRATE 145 MG TABS 1 po qd FENOFIBRATE 145 MG TABS 028266 FENOFIBRATE Inactive BACTRIM DS 800-160 MG TABS 1 bid x 14 day start 09-28-13 BACTRIM DS 800-160 MG TABS 418816 SULFAMETHOXAZOLE-TRIMETHOPRIM Inactive B-12 100 MCG TABS Take one by mouth daily B-12 100 MCG TABS CYANOCOBALAMIN Inactive GABAPENTIN 100 MG CAPS 1 po bid GABAPENTIN 100 MG CAPS 494018 GABAPENTIN Inactive HYDROCODONE-ACETAMINOPHEN 5-325 MG TABS 1 tab by mouth every 6 hours as needed for pain HYDROCODONE-ACETAMINOPHEN 5-325 MG TABS 103941 HYDROCODONE-ACETAMINOPHEN Inactive CIPRO 500 MG TABS 1 bid x 14 days start 09-28-13 CIPRO 500 MG TABS 963315 CIPROFLOXACIN HCL Inactive ALIGN 4 MG CAPS [...] as needed DICLOFENAC SODIUM 50 MG TBEC 258594 DICLOFENAC SODIUM Inactive PREDNISONE 20 MG TAB 2 tablets once daily for 2 days, then 1 tablet once daily for 2 days PREDNISONE 20 MG TAB 492514 PREDNISONE Inactive TRUEDRAW LANCING DEVICE MISC Test twice a day dx 250.0 TRUEDRAW LANCING DEVICE MISC LANCET DEVICES Inactive TRUERESULT BLOOD GLUCOSE W/DEVICE KIT test blood sugar twice daily dx 250.00 TRUERESULT BLOOD GLUCOSE W/DEVICE KIT BLOOD GLUCOSE MONITORING SUPPL Inactive FLONASE 50 MCG/ACT SUSP 1 spray each nostril twice daily until bottle empty FLONASE 50 MCG/ACT SUSP 3454064 FLUTICASONE PROPIONATE Inactive VENTOLIN HFA 108 (90 BASE) MCG/ACT AERS 1-2 puffs every 4 hours if needed for cough/congestion VENTOLIN HFA 108 (90 BASE) MCG/ACT AERS ALBUTEROL SULFATE Inactive REQUIP 2 MG TABS Take one tablet at bedtime prn REQUIP 2 MG TABS 454476 ROPINIROLE HCL Inactive SUPER B COMPLEX/VITAMIN C TABS 1 qd SUPER B COMPLEX/ VITAMIN C TABS 19724631952 B COMPLEX-C Inactive TRUEDRAW LANCING DEVICE MISC test blood sugar twice daily dx: 250.00 TRUEDRAW LANCING DEVICE MISC LANCET DEVICES Inactive TRUETEST TEST INVITR STRP test blood sugar twice daily. DX 250.0 TRUETEST TEST INVITR STRP GLUCOSE BLOOD Inactive CYCLOBENZAPRINE HCL 10 MG ORAL TABS 1 po TID PRN Muscle Spasm CYCLOBENZAPRINE HCL 10 MG ORAL TABS 998568 CYCLOBENZAPRINE HCL Inactive DICLOFENAC SODIUM 50 MG ORAL TBEC 1 po BID PRN Pain DICLOFENAC SODIUM 50 MG ORAL TBEC 551182 DICLOFENAC SODIUM Inactive TRIAMCINOLONE ACETONIDE 0.1 % OINT Apply to affected areas TID for up to 2 weeks TRIAMCINOLONE ACETONIDE 0.1 % OINT 4993423 TRIAMCINOLONE ACETONIDE Inactive PREDNISONE 20 MG TAB 2 tabs daily for 3 days, 1 tab daily for 3 days, 1/2 tab daily for 2 days PREDNISONE 20 MG TAB 284610 PREDNISONE Inactive PREDNISONE 20 MG TAB 2 tabs daily for 3 days, 1 tab daily for 3 days, 1/2 tab daily for 2 days PREDNISONE 20 MG TAB 172210 PREDNISONE Inactive BACTRIM DS 800-160 MG TABS 1 po BID x 7 days BACTRIM DS 800-160 MG TABS 416854 SULFAMETHOXAZOLE-TRIMETHOPRIM Inactive ZITHROMAX 250 MG TAB 2 po today, then 1 po q days 2-5 ZITHROMAX 250 MG TAB 438564 AZITHROMYCIN Inactive Advance Directives Directive Description Start Date DISCUSSED WITH PATIENT -- NO DECISION MADE Immunizations Vaccine Administration Date Value Standard Description Seasonal influenza vaccine, injectable, containing preservative, for > 3 years old (Afluria, FluLaval, Fluzone, Fluvirin, Fluarix, Agriflu(>=18 yo)) Fluzone (>3 yrs.) [[id number]] Influenza, seasonal, injectable influenza immunization (Flu Vax) has been administered 02/22/2012 influenza virus vaccine, unspecified formulation Seasonal influenza vaccine, injectable, containing preservative, for > 3 years old (Afluria, FluLaval, Fluzone, Fluvirin, Fluarix, Agriflu(>=18 yo)) Fluzone (>3 yrs.) [[id number]] Influenza, seasonal, injectable Vital Signs Date Name [...] Magnesium - Chemistry sodium, serum 143 mmol/L 494-513 6579/01/10 carbon dioxide, venous blood 28.0 mmol/L 21.0-32.0 potassium, serum 4.5 mmol/L 3.5-5.2 chloride, serum 104 mmol/L 98-107 blood glucose 158 mg/dL 65-110 urea nitrogen, blood 23 mg/dL 7-18 creatinine, serum 1.06 mg/dL 0.55-1.30 alanine aminotransferase (SGPT), serum 42 U/L 12-78 aspartate aminotransferase (SGOT), serum 32 U/L 15-37 calcium, serum 9.3 mg/dL 8.5-10.1 bilirubin, serum, total 0.20 mg/dL 0.00-1.00 cholesterol, serum 177 mg/dL 790-897 6067/01/10 triglyceride, serum, fasting 320 mg/dL 30-200 HDL cholesterol, serum 46 mg/dL 32-96 LDL cholesterol, serum 67 mg/dL 0-130 Lab Report: COMPREHENSIVE METABOLIC PANEL, LIPID PANEL, HEMOGLOBIN A1c - Chemistry cholesterol, serum 135 mg/dL 911-488 3512/05/17 HDL cholesterol, serum 41 mg/dL > OR=46 [...] <30 Encounters Code Encounter Date Provider Facility CPT-59892 Level 3 Est. Patient 14:20:36 CDT Tu Landeros MD [facility] CPT-86425 Level 4 Est. Patient 14:28:34 CDT Tu Landeros MD [facility] CPT-63150 Level 3 Est. Patient 13:33:09 CDT Tu Landeros MD [facility] CPT-32663 Level 4 Est. Patient 14:29:21 CDT Tu Landeros MD [facility] CPT-72214 Level 4 Est. Patient 09:08:17 OPTICAL FABRICATION TECHNICIAN Tu Landeros MD [facility] CPT-29667 Level 4 Est. Patient 14:40:19 CDT Tu Landeros MD [facility] CPT-82741 Level 4 Est. Patient 14:06:04 OPTICAL FABRICATION TECHNICIAN Tu Landeros MD [facility] CPT-88287 Level 3 Est. Patient 14:05:18 OPTICAL FABRICATION TECHNICIAN Tu Landeros MD [facility] CPT-82283 Level 3 Est. Patient 10:06:54 OPTICAL FABRICATION TECHNICIAN Miranda Suresh APRN [facility] CPT-58027 Level 4 Est. Patient 13:50:18 OPTICAL FABRICATION TECHNICIAN [facility] CPT-33575 Level 3 Est. Patient 10:30:04 CDT Tu Landeros MD [facility] CPT-40266 Level 4 Est. Patient 11:03:38 CDT Tu Landeros MD [facility] CPT-79892 Level 3 Est. Patient 10:20:44 CDT Fab Morales DO [facility] CPT-10982 Level 4 Est. Patient 14:38:57 CDT Tu Landeros MD [facility] CPT-50663 Level 4 Est. Patient 14:27:39 OPTICAL FABRICATION TECHNICIAN Tu Landeros MD [facility] CPT-03684 Level 4 Est. Patient 09:45:25 CDT Tu Landeros MD [facility] CPT-07351 Level 4 Est. Patient 09:05:20 OPTICAL FABRICATION TECHNICIAN Tu Landeros MD [facility] CPT-27343 Level 4 Est. Patient 14:09:06 CDT Tu Landeros MD [facility] CPT-20224 Level 3 Est. Patient 13:36:54 CDT Tu Landeros MD [facility] CPT-37709 Level 3 Est. Patient 08:59:14 CDT Tu Landeros MD [facility] CPT-70917 Level 3 Est. Patient 13:48:35 CDT Fab Morales DO [facility] CPT-25774 Level 4 Est. Patient 10:05:48 CDT Tu Landeros MD [facility] CPT-38015 Level 3 Est. Patient 13:38:42 CDT Marek BANKS [facility] CPT-24863 Level 5 Est. Patient 08:08:39 CDT Jerrica FRANCIS [facility] CPT-60888 Level 4 Est. Patient 14:23:38 CDT Tu Landeros MD [facility] CPT-36504 Level 3 Est. Patient 11:44:04 CDT Tu Landeros MD [facility] CPT-98643 Level 3 Est. Patient 11:03:20 OPTICAL FABRICATION TECHNICIAN Tu Landeros MD [facility] CPT-75841 Level 3 Est. Patient 11:03:14 OPTICAL FABRICATION TECHNICIAN Tu Landeros MD [facility] CPT-89875 Level 3 Est. Patient 12:42:49 CDT Tu Landeros MD [facility] CPT-95210 Level 3 Est. Patient 11:52:06 CDT Tu Landeros MD [facility] CPT-17598 Level 3 Est. Patient 13:58:11 CDT Tu Ladneros MD [facility] CPT-35756 Level 3 Est. Patient 17:50:07 CDT Fab Morales DO [facility] CPT-94417 Level 3 Est. Patient 12:06:29 CDT Elvira Cervantes MD, PhD [facility] CPT-51424 Level 3 Est. Patient 15:50:32 CDT Tu Landeros MD [facility] CPT-68001 Level 4 Est. Patient 16:08:29 CDT Tu Landeros MD [facility] CPT-19092 Level 3 Est. Patient 16:04:19 CDT Tu Landeros MD [facility] CPT-57329 Level 3 Est. Patient 11:22:30 OPTICAL FABRICATION TECHNICIAN Tu Landeros MD [facility] CPT-17115 Level 4 Est. Patient 16:24:02 OPTICAL FABRICATION TECHNICIAN Tu Landeros MD [facility] CPT-01909 Level 3 Est. Patient 17:21:23 OPTICAL FABRICATION TECHNICIAN Tu Landeros MD [facility] Procedures Code Procedure Name Date Entry Date Standard Description CPT-04168 Shoulder, right, comp min 2V - XRAY USE ONLY 13:50:22 CDT CPT-G0009 Administration of Pneumococcal Vaccine 15:08:26 CDT CPT-68993 Prevnar 13 Intramuscular Suspension 15:08:26 CDT 10/08 CPT-G0439 Subsequent Annual Wellness Exam 14:29:22 CDT CPT-06980 Venipuncture Draw Fee 13:15:35 CDT CPT-38228 Magnesium - LAB USE ONLY 11:14:20 OPTICAL FABRICATION TECHNICIAN CPT-02804 Lipid - LAB USE ONLY 11:14:20 OPTICAL FABRICATION TECHNICIAN CPT-40815 HGBA1C - LAB USE ONLY 11:14:20 OPTICAL FABRICATION TECHNICIAN CPT-31342 CMP - LAB USE ONLY 11:14:19 OPTICAL FABRICATION TECHNICIAN CPT-36114 CBC - LAB USE ONLY 11:14:19 OPTICAL FABRICATION TECHNICIAN CPT-73879 Venipuncture Draw Fee 11:14:18 OPTICAL FABRICATION TECHNICIAN CPT-51716 First Vx - Ix admin for Medicare patients 16:46:52 CDT CPT-14331 Fluzone Preservative Free Intramuscular Suspension 16:46 :51 CDT CPT-10415 CBC - LAB USE ONLY 17:14:46 CDT CPT-10750 HGBA1C - LAB USE ONLY 17:14:46 CDT CPT-76480 Venipuncture Draw Fee 17:14:46 CDT CPT-G0438 Initial Annual Wellness Exam 14:13:04 CDT CPT-81755 Breathing Tx 10:06:54 OPTICAL FABRICATION TECHNICIAN CPT-09105 Postop F/U Visit 10:02:45 CDT CPT-LR Lesion Removal 09:02:56 CDT CPT-JTINJ Asp/Joint Injection 15:51:27 OPTICAL FABRICATION TECHNICIAN CPT-OV Office Visit 15:52:02 OPTICAL FABRICATION TECHNICIAN CPT-OV Office Visit 15:45:11 CDT CPT-000 Give Zostavax 14:09:06 CDT CPT-19706 Administration single or combination vaccine inc oral 15 :19:04 CDT CPT-53636 Zoster Vaccine (Zostavax) 15:19:04 CDT CPT-97482 Administration single or combination vaccine inc oral 20 :51:03 CDT CPT-52663 Influenza split virus > age 3 20:51:03 CDT CPT-42279 No Charge Offi Visit 14:52:03 CDT CPT-OV Office Visit 14:57:43 CDT CPT-OV Office Visit 15:22:32 CDT CPT-47920 Administration single or combination vaccine inc oral 11 :33:15 CDT CPT-07477 Influenza split virus > age 3 11:33:15 CDT
--- OUTSIDE RECORDS SUMMARY | 2018-04-25 14:29 | XMS REPORT | Clinical Summary ---
Author Author Admin, SACHI Organization [employer] Address Unknown Phone Unavailable Allergies, Adverse Reactions, [...] involving shoulder region PARESTHESIA 782.0 Resolved Tu Ladneros MD Disturbance of skin sensation RASH AND [...] Generic Name NDC Status Provider Patient Instruction AZITHROMYCIN 250 MG ORAL TABLET 2 po qd x 1, then 1 po qd x 4 AZITHROMYCIN 56234085230 Active Tu Landeros MD Active GUAIFENESIN ER 600 MG ORAL TABLET EXTENDED RELEASE 12 HOUR 1 twice a day as needed for congestion GUAIFENESIN 66443534625 No Longer Active Tu Landeros MD Active PREDNISONE 20 MG ORAL TABLET 2 po qd x 5 days PREDNISONE 88325560725 No Longer Active Tu Landeros MD Active PROMETHAZINE-CODEINE 6.25-10 MG/5ML ORAL SYRUP 5ml po q6hr PRN Cough PROMETHAZINE-CODEINE 99431781805 Active Tu Landeros MD Active FLUTICASONE PROPIONATE 50 MCG/ACT NASAL SUSPENSION 2 sprays/nostril qd PRN Congestion/Allergies FLUTICASONE PROPIONATE 19398780029 Active Tu Landeros MD Active NASONEX 50 MCG/ACT NASAL SUSPENSION 2 actuations in each nostril q day 07/15 MOMETASONE FUROATE 60930661903 No Longer Active Tu Landeros MD Active MAGNESIUM OXIDE 400 MG ORAL TABLET 1 po BID MAGNESIUM OXIDE 87948440242 Active Tu Landeros MD Active SIMVASTATIN 20 MG ORAL TABLET 0.5 po qHS SIMVASTATIN 48579211253 Active Tu Landeros MD Active DICLOFENAC SODIUM 75 MG ORAL TABLET DELAYED RELEASE 1 po BID PRN Pain DICLOFENAC SODIUM 52947114352 No Longer Active Tu Lnaderos MD Active GABAPENTIN 100 MG ORAL CAPSULE 1 po TID GABAPENTIN 83302104919 Active Tu Landeros MD Active DICLOFENAC SODIUM 50 MG ORAL TABLET DELAYED RELEASE 1 po BID PRN Pain DICLOFENAC SODIUM 09715936809 No Longer Active Tu Landeros MD Active CYCLOBENZAPRINE HCL 10 MG ORAL TABLET 1 po TID PRN Muscle Spasm CYCLOBENZAPRINE HCL 69839670193 No Longer Active Tu Landeros MD Active INVOKANA 100 MG ORAL TABLET 1 po qd CANAGLIFLOZIN 53013942388 Active Tu Landeros MD Active GLIPIZIDE 5 MG ORAL TABLET 1 po qd GLIPIZIDE 80322242843 No Longer Active Tu Landeros MD Active VENLAFAXINE HCL 75 MG ORAL TABLET 1 po BID VENLAFAXINE HCL 28055438297 Active Tu Landeros MD Active GLIMEPIRIDE 1 MG ORAL TABLET 1 po qd GLIMEPIRIDE 76729114766 No Longer Active Tu Landeros MD Active TRUE METRIX BLOOD GLUCOSE TEST IN VITRO STRIP Test blood sugar BID Dx: E11.9 GLUCOSE BLOOD 35699763637 Active Tu Landeros MD Active TRUE METRIX AIR GLUCOSE METER w/Device KIT Test blood glucose BID Dx: E11.9 BLOOD GLUCOSE MONITORING SUPPL 70057095511 Active Tu Landeros MD Active TRUETEST TEST IN VITRO STRIP test blood sugar twice daily. DX 250.0 GLUCOSE BLOOD 61016677221 No Longer Active Mirna Stanley LPN Active TRUEDRAW LANCING DEVICE test blood sugar twice daily dx: 250.00 LANCET DEVICES 41809249766 No Longer Active Mirna Stanley LPN Active ENALAPRIL MALEATE 20 MG ORAL TABLET 2 po qd ENALAPRIL MALEATE 22169795362 Active Tu Landeros MD Active SUPER B COMPLEX/VITAMIN C ORAL TABLET 1 qd B COMPLEX- C 16587930324 No Longer Active Tu Landeros MD Active ASPIRIN EC 81 MG ORAL TABLET DELAYED RELEASE 1 po qd ASPIRIN 71664620036 Active Tu Landeros MD Active GLUCOSAMINE 500 MG TABS 2 po qd GLUCOSAMINE Active Tu Landeros MD Active FISH OIL 1000 MG ORAL CAPSULE 1 po qd OMEGA-3 FATTY ACIDS 98906742427 Active Tu Landeros MD Active METFORMIN HCL 1000 MG ORAL TABLET 1 po BID METFORMIN HCL 75559034564 Active Tu Landeros MD Active KLOR-CON 10 10 MEQ ORAL TABLET EXTENDED RELEASE 2 po qd POTASSIUM CHLORIDE 14667646717 Active Tu Landeros MD Active FUROSEMIDE 40 MG ORAL TABLET 1 po qd FUROSEMIDE 94213296430 Active Tu Landeros MD Active REQUIP 2 MG ORAL TABLET 1 po qHS PRN Restless legs ROPINIROLE HCL 77645637543 Active Tu Landeros MD Active REQUIP 2 MG ORAL TABLET Take one tablet at bedtime prn ROPINIROLE HCL 36130547733 No Longer Active Tu Landeros MD Active VENTOLIN HFA 108 (90 Base) MCG/ACT INHALATION AEROSOL SOLUTION 1-2 puffs every 4 hours if needed for cough/congestion ALBUTEROL SULFATE 11922762266 No Longer Active Ambika Aden APRN Active ZITHROMAX 250 MG ORAL TABLET 2 po today, then 1 po q days 2-5 AZITHROMYCIN 24814325101 No Longer Active Miranda Farah APRN Active FLONASE 50 MCG/ACT NASAL SUSPENSION 1 spray each nostril twice daily until bottle empty FLUTICASONE PROPIONATE 17795691368 No Longer Active Tu Landeros MD Active COLACE 100 MG ORAL CAPSULE 1 po BID PRN Constipation DOCUSATE SODIUM 65614956749 Active Tu Landeros MD Active TRUERESULT BLOOD GLUCOSE w/Device KIT test blood sugar twice daily dx 250.00 BLOOD GLUCOSE MONITORING SUPPL 56197399618 No Longer Active Tu Landeros MD Active TRUEDRAW LANCING DEVICE Test twice a day dx 250.0 LANCET DEVICES 53181848410 No Longer Active Tu Landeros MD Active PREDNISONE 20 MG ORAL TABLET 2 tablets once daily for 2 days, then 1 tablet once daily for 2 days PREDNISONE 40382515700 No Longer Active Tu Landeros MD Active DICLOFENAC SODIUM 50 MG ORAL TABLET DELAYED RELEASE 1 tablet by mouth three times a day as needed DICLOFENAC SODIUM 47480231428 No Longer Active Fab Morales DO Active EMBRACE BLOOD GLUCOSE TEST IN VITRO STRIP test blood sugar twice daily DX 250.0 GLUCOSE BLOOD 05914469924 No Longer Active Tu Landeros MD Active TRUETEST TEST IN VITRO STRIP test blood sugar three times daily dx: 250.00 GLUCOSE BLOOD 87504307745 No Longer Active Suzebianca Nicole RMA Active TRUERESULT BLOOD GLUCOSE w/Device KIT use to test blood sugar tid dx: 250.00 BLOOD GLUCOSE MONITORING SUPPL 40594130018 No Longer Active Suze Corey RMA Active ALIGN 4 MG ORAL CAPSULE 1 tid PROBIOTIC PRODUCT 80157107991 No Longer Active Shaun Sy MD Active CIPRO 500 MG ORAL TABLET 1 bid x 14 days start 09-28-13 CIPROFLOXACIN HCL 81815699421 No Longer Active Shaun Sy MD Active TRAMADOL HCL 50 MG ORAL TABLET 1-2 tablets every 6 hours as needed for pain TRAMADOL HCL 91300103068 Active Tu Landeros MD Active HYDROCODONE-ACETAMINOPHEN 5-325 MG ORAL TABLET 1 tab by mouth every 6 hours as needed for pain HYDROCODONE-ACETAMINOPHEN 74228906736 No Longer Active Tu Landeros MD Active OMEPRAZOLE 20 MG ORAL CAPSULE DELAYED RELEASE 1 po q a.m. OMEPRAZOLE 04733556579 Active Fab Morales DO Active GABAPENTIN 100 MG ORAL CAPSULE 1 po bid GABAPENTIN 57306280183 No Longer Active Tu Landeros MD Active B-12 100 MCG ORAL TABLET Take one by mouth daily CYANOCOBALAMIN 90904021926 No Longer Active Tu Landeros MD Active BACTRIM DS 800-160 MG ORAL TABLET 1 bid x 14 day start 09-28-13 SULFAMETHOXAZOLE-TRIMETHOPRIM 41665430624 No Longer Active Tu Landeros MD Active CARVEDILOL 12.5 MG ORAL TABLET 1 po BID CARVEDILOL 61051180869 Active Tu Landeros MD Active TRILIPIX 135 MG ORAL CAPSULE DELAYED RELEASE 1 q hs CHOLINE FENOFIBRATE 92471691088 Active Tu Landeros MD Active FENOFIBRATE 145 MG ORAL TABLET 1 po qd FENOFIBRATE 33285028528 No Longer Active JASPREET Perez Active OMEPRAZOLE 20 MG ORAL TABLET DELAYED RELEASE 1 PO 30 MIN BEFORE 1ST MEAL 2010 OMEPRAZOLE 67429895824 No Longer Active JASPREET Perez Active SIMVASTATIN 40 MG ORAL TABLET Take one by mouth daily SIMVASTATIN 75201013900 No Longer Active JASPREET Perez Active VENLAFAXINE HCL 75 MG ORAL TABLET 1 po BID VENLAFAXINE HCL 21952911019 No Longer Active JASPREET Perez Active CIPRO 500 MG ORAL TABLET 1 tablet by mouth twice daily CIPROFLOXACIN HCL 01610138311 No Longer Active Tu Landeros MD Active VENLAFAXINE HCL 37.5 MG ORAL TABLET 1 po BID VENLAFAXINE HCL 46719374146 No Longer Active Suze VOGEL Active LAMISIL 250 MG ORAL TABLET 1 po qd TERBINAFINE HCL 47852107149 No Longer Active Tu Landeros MD Active LORTAB 5-500 MG ORAL TABLET 1/2 to 1 tablet by mouth every 4 hours as needed for pain HYDROCODONE-ACETAMINOPHEN 43534811988 No Longer Active Tu Landeros MD Active HYDROCODONE-ACETAMINOPHEN 5-500 MG ORAL TABLET take one po Q 4-6 hours prn HYDROCODONE-ACETAMINOPHEN 04790186206 No Longer Active Tu Landeros MD Active BACTRIM DS 800-160 MG ORAL TABLET 1 po BID x 7 days SULFAMETHOXAZOLE-TRIMETHOPRIM 55802191136 No Longer Active Tu Landeros MD Active VENLAFAXINE HCL 75 MG ORAL TABLET 1 po BID VENLAFAXINE HCL 41459989280 No Longer Active Elvira Cervantes MD PhD Active TRAMADOL HCL 50 MG ORAL TABLET 1 tablets every 6 hours as needed for pain TRAMADOL HCL 16687207901 No Longer Active Tu Landeros MD Active ACCU-CHEK FASTCLIX LANCETS Use to check bloodsugar three times daily as needed LANCETS 51185115012 No Longer Active Tu Landeros MD Active ACCU-CHEK KEYONA PLUS IN VITRO STRIP Use for testing bloodsugars three times daily as needed GLUCOSE BLOOD 33770599391 No Longer Active Tu Landeros MD Active ACCU-CHEK KEYONA PLUS w/Device KIT Use for testing bloodsugars three times daily as needed BLOOD GLUCOSE MONITORING SUPPL 16198902782 No Longer Active Tu Landeros MD Active SPIRONOLACTONE 25 MG ORAL TABLET 0.5 tablet by mouth daily 09/09 SPIRONOLACTONE 68821813432 No Longer Active Tu Landeros MD Active ALPRAZOLAM 0.5 MG ORAL TABLET 1 tab every 6hrs as needed ALPRAZOLAM 83338808787 No Longer Active Tu Landeros MD Active AUGMENTIN 875-125 MG ORAL TABLET 1 tab by mouth twice daily with food AMOXICILLIN-POT CLAVULANATE 74330629053 No Longer Active Tu Landeros MD Active PREDNISONE 20 MG ORAL TABLET 2 tabs daily for 3 days, 1 tab daily for 3 days, 1/2 tab daily for 2 days PREDNISONE 16938182095 No Longer Active Tu Landeros MD Active XANAX 0.5 MG ORAL TABLET 1 tablet every 6 hrs prn ALPRAZOLAM 89395345616 No Longer Active Tu Landeros MD Active PREDNISONE 20 MG ORAL TABLET 2 tabs daily for 3 days, 1 tab daily for 3 days, 1/2 tab daily for 2 days PREDNISONE 19866037970 No Longer Active Tu Landeros MD Active TRIAMCINOLONE ACETONIDE 0.1 % EXTERNAL OINTMENT Apply to affected areas TID for up to 2 weeks TRIAMCINOLONE ACETONIDE 41729137822 No Longer Active Tu Landeros MD Active LORTAB 5-500 MG ORAL TABLET 1/2 to 1 tablet by mouth every 4 hours as needed for pain HYDROCODONE-ACETAMINOPHEN 85511413296 No Longer Active Tu Landeros MD Active MULTIVITAMINS TABS Take one by mouth daily MULTIPLE VITAMIN 18604885809 No Longer Active Tu Landeros MD Active MELATONIN 5 MG ORAL TABLET Take one by mouth daily MELATONIN 33399566602 No Longer Active Tu Landeros MD Active SOMA 350 MG ORAL TABLET 1 po q 6 hours prn spasm CARISOPRODOL 19360590379 No Longer Active Tu Landeros MD Active MECLIZINE HCL 25 MG ORAL TABLET CHEWABLE 1 four times a day as needed for dizziness MECLIZINE HCL 84599490574 No Longer Active Fab Morales DO Active ANGEL BREEZE 2 TEST IN VITRO DISK test tid prn GLUCOSE BLOOD 03783456060 No Longer Active Negra Scott RN Active REGLAN 10 MG ORAL TABLET 1 po TID PRN Nausea METOCLOPRAMIDE HCL 39193645870 No Longer Active Tu Landeros MD Active METFORMIN HCL 500 MG ORAL TABLET 1 PO BID METFORMIN HCL 51444638224 No Longer Active Tu Landeros MD Active AMBIEN 10 MG ORAL TABLET 1 tab by mouth at bedtime as needed for sleep 06/10 ZOLPIDEM TARTRATE 28125669011 No Longer Active Tu Landeros MD Active FLUOXETINE HCL 40 MG ORAL CAPSULE 1 po q day FLUOXETINE HCL 51867912699 No Longer Active Mayra Terry Active TRILIPIX 135 MG ORAL CAPSULE DELAYED RELEASE 1 po qd CHOLINE FENOFIBRATE 23659830246 No Longer Active Tu Landeros MD Active AMBIEN 10 MG ORAL TABLET 1 tab by mouth at bedtime as needed for sleep 06/10 AMBIEN 10 MG ORAL TABLET 232506 ZOLPIDEM TARTRATE Inactive METFORMIN HCL 500 MG ORAL TABLET 1 PO BID METFORMIN HCL 500 MG ORAL TABLET 510039 METFORMIN HCL Inactive REGLAN 10 MG ORAL TABLET 1 po TID PRN Nausea REGLAN 10 MG ORAL TABLET 326728 METOCLOPRAMIDE HCL Inactive MECLIZINE HCL 25 MG ORAL TABLET CHEWABLE 1 four times a day as needed for dizziness MECLIZINE HCL 25 MG ORAL TABLET CHEWABLE 088648 MECLIZINE HCL Inactive SOMA 350 MG ORAL TABLET 1 po q 6 hours prn spasm SOMA 350 MG ORAL TABLET 772129 CARISOPRODOL Inactive MELATONIN 5 MG ORAL TABLET Take one by mouth daily MELATONIN 5 MG ORAL TABLET 196377 MELATONIN Inactive MULTIVITAMINS TABS Take one by mouth daily MULTIVITAMINS TABS MULTIPLE VITAMIN Inactive LORTAB 5-500 MG ORAL TABLET 1/2 to 1 tablet by mouth every 4 hours as needed for pain LORTAB 5-500 MG ORAL TABLET HYDROCODONE- ACETAMINOPHEN Inactive XANAX 0.5 MG ORAL TABLET 1 tablet every 6 hrs prn XANAX 0.5 MG ORAL TABLET 469059 ALPRAZOLAM Inactive AUGMENTIN 875-125 MG ORAL TABLET 1 tab by mouth twice daily with food AUGMENTIN 875-125 MG ORAL TABLET 669875 AMOXICILLIN-POT CLAVULANATE Inactive ALPRAZOLAM 0.5 MG ORAL TABLET 1 tab every 6hrs as needed ALPRAZOLAM 0.5 MG ORAL TABLET 250891 ALPRAZOLAM Inactive SPIRONOLACTONE 25 MG ORAL TABLET 0.5 tablet by mouth daily 09/09 SPIRONOLACTONE 25 MG ORAL TABLET 995587 SPIRONOLACTONE Inactive ACCU-CHEK KEYONA PLUS w/Device KIT [...] times daily as needed ACCU-CHEK FASTCLIX LANCETS 22923854313 LANCETS Inactive TRAMADOL HCL 50 MG ORAL TABLET 1 tablets every 6 hours as needed for pain TRAMADOL HCL 50 MG ORAL TABLET 793180 TRAMADOL HCL Inactive VENLAFAXINE HCL 75 MG ORAL TABLET 1 po BID VENLAFAXINE HCL 75 MG ORAL TABLET 156334 VENLAFAXINE HCL Inactive HYDROCODONE-ACETAMINOPHEN 5-500 MG ORAL TABLET take one po Q 4-6 hours prn HYDROCODONE-ACETAMINOPHEN 5-500 MG ORAL TABLET 732153 HYDROCODONE-ACETAMINOPHEN Inactive LORTAB 5-500 MG ORAL TABLET 1/2 to 1 tablet by mouth every 4 hours as needed for pain LORTAB 5-500 MG ORAL TABLET HYDROCODONE- ACETAMINOPHEN Inactive LAMISIL 250 MG ORAL TABLET 1 po qd LAMISIL 250 MG ORAL TABLET 153234 TERBINAFINE HCL Inactive VENLAFAXINE HCL 37.5 MG ORAL TABLET 1 po BID VENLAFAXINE HCL 37.5 MG ORAL TABLET 124922 VENLAFAXINE HCL Inactive CIPRO 500 MG ORAL TABLET 1 tablet by mouth twice daily CIPRO 500 MG ORAL TABLET 498033 CIPROFLOXACIN HCL Inactive VENLAFAXINE HCL 75 MG ORAL TABLET 1 po BID VENLAFAXINE HCL 75 MG ORAL TABLET 829758 VENLAFAXINE HCL Inactive SIMVASTATIN 40 MG ORAL TABLET Take one by mouth daily SIMVASTATIN 40 MG ORAL TABLET 594279 SIMVASTATIN Inactive OMEPRAZOLE 20 MG ORAL TABLET DELAYED RELEASE 1 PO 30 MIN BEFORE 1ST MEAL 2010 OMEPRAZOLE 20 MG ORAL TABLET DELAYED RELEASE 348927 OMEPRAZOLE Inactive FENOFIBRATE 145 MG ORAL TABLET 1 po qd FENOFIBRATE 145 MG ORAL TABLET 883082 FENOFIBRATE Inactive BACTRIM DS 800-160 MG ORAL TABLET 1 bid x 14 day start 09-28-13 BACTRIM DS 800-160 MG ORAL TABLET 295408 SULFAMETHOXAZOLE- TRIMETHOPRIM Inactive B-12 100 MCG ORAL TABLET Take one by mouth daily B-12 100 MCG ORAL TABLET CYANOCOBALAMIN Inactive GABAPENTIN 100 MG ORAL CAPSULE 1 po bid GABAPENTIN 100 MG ORAL CAPSULE 897862 GABAPENTIN Inactive HYDROCODONE-ACETAMINOPHEN 5-325 MG ORAL TABLET 1 tab by mouth every 6 hours as needed for pain HYDROCODONE-ACETAMINOPHEN 5-325 MG ORAL TABLET 370595 HYDROCODONE-ACETAMINOPHEN Inactive CIPRO 500 MG ORAL TABLET 1 bid x 14 days start 09-28-13 CIPRO 500 MG ORAL TABLET 641676 CIPROFLOXACIN HCL Inactive ALIGN 4 MG ORAL [...] SODIUM 50 MG ORAL TABLET DELAYED RELEASE 501369 DICLOFENAC SODIUM Inactive PREDNISONE 20 MG ORAL TABLET 2 tablets once daily for 2 days, then 1 tablet once daily for 2 days PREDNISONE 20 MG ORAL TABLET 845312 PREDNISONE Inactive TRUEDRAW LANCING DEVICE Test twice a day dx 250.0 TRUEDRAW LANCING DEVICE LANCET DEVICES Inactive TRUERESULT BLOOD GLUCOSE w/Device KIT test blood sugar twice daily dx 250.00 TRUERESULT BLOOD GLUCOSE w/Device KIT BLOOD GLUCOSE MONITORING SUPPL Inactive FLONASE 50 MCG/ACT NASAL SUSPENSION 1 spray each nostril twice daily until bottle empty FLONASE 50 MCG/ACT NASAL SUSPENSION 0942080 FLUTICASONE PROPIONATE Inactive VENTOLIN HFA 108 (90 Base) MCG/ACT INHALATION AEROSOL SOLUTION 1-2 puffs every 4 hours if needed for cough/congestion VENTOLIN HFA 108 (90 Base) MCG/ACT INHALATION AEROSOL SOLUTION ALBUTEROL SULFATE Inactive REQUIP 2 MG ORAL TABLET Take one tablet at bedtime prn REQUIP 2 MG ORAL TABLET 687248 ROPINIROLE HCL Inactive SUPER B COMPLEX/VITAMIN C ORAL TABLET 1 qd SUPER B COMPLEX/VITAMIN C ORAL TABLET 33568881977 B COMPLEX-C Inactive TRUEDRAW LANCING DEVICE test blood sugar twice daily dx: 250.00 TRUEDRAW LANCING DEVICE LANCET DEVICES Inactive TRUETEST TEST IN VITRO STRIP test blood sugar twice daily. DX 250.0 TRUETEST TEST IN VITRO STRIP GLUCOSE BLOOD Inactive CYCLOBENZAPRINE HCL 10 MG ORAL TABLET 1 po TID PRN Muscle Spasm CYCLOBENZAPRINE HCL 10 MG ORAL TABLET 933571 CYCLOBENZAPRINE HCL Inactive DICLOFENAC SODIUM 50 MG ORAL TABLET DELAYED RELEASE 1 po BID PRN Pain DICLOFENAC SODIUM 50 MG ORAL TABLET DELAYED RELEASE 888888 DICLOFENAC SODIUM Inactive DICLOFENAC SODIUM 75 MG ORAL TABLET DELAYED RELEASE 1 po BID PRN Pain DICLOFENAC SODIUM 75 MG ORAL TABLET DELAYED RELEASE 751468 DICLOFENAC SODIUM Inactive NASONEX 50 MCG/ACT NASAL SUSPENSION 2 actuations in each nostril q day 07/15 NASONEX 50 MCG/ACT NASAL SUSPENSION 8258399 MOMETASONE FUROATE Inactive GUAIFENESIN ER 600 MG ORAL TABLET EXTENDED RELEASE 12 HOUR 1 twice a day as needed for congestion GUAIFENESIN ER 600 MG ORAL TABLET EXTENDED RELEASE 12 HOUR GUAIFENESIN Inactive TRIAMCINOLONE ACETONIDE 0.1 % EXTERNAL OINTMENT Apply to affected areas TID for up to 2 weeks TRIAMCINOLONE ACETONIDE 0.1 % EXTERNAL OINTMENT 6624132 TRIAMCINOLONE ACETONIDE Inactive PREDNISONE 20 MG ORAL TABLET 2 tabs daily for 3 days, 1 tab daily for 3 days, 1/2 tab daily for 2 days PREDNISONE 20 MG ORAL TABLET 968904 PREDNISONE Inactive PREDNISONE 20 MG ORAL TABLET 2 tabs daily for 3 days, 1 tab daily for 3 days, 1/2 tab daily for 2 days PREDNISONE 20 MG ORAL TABLET 807998 PREDNISONE Inactive BACTRIM DS 800-160 MG ORAL TABLET 1 po BID x 7 days BACTRIM DS 800-160 MG ORAL TABLET 700201 SULFAMETHOXAZOLE-TRIMETHOPRIM Inactive ZITHROMAX 250 MG ORAL TABLET 2 po today, then 1 po q days 2-5 ZITHROMAX 250 MG ORAL TABLET 109296 AZITHROMYCIN Inactive PREDNISONE 20 MG ORAL TABLET 2 po qd x 5 days PREDNISONE 20 MG ORAL TABLET 156855 PREDNISONE Inactive Advance Directives Directive Description Start Date DISCUSSED WITH PATIENT -- NO DECISION MADE Immunizations Vaccine Administration Date Value Standard Description Seasonal influenza vaccine, injectable, containing preservative, for > 3 years old (Afluria, FluLaval, Fluzone, Fluvirin, Fluarix, Agriflu(>=18 yo)) Fluzone (>3 yrs.) [[id number]] Influenza, seasonal, injectable influenza immunization (Flu Vax) has been administered 02/22/2012 influenza virus vaccine, unspecified formulation Seasonal influenza vaccine, injectable, containing preservative, for > 3 years old (Afluria, FluLaval, Fluzone, Fluvirin, Fluarix, Agriflu(>=18 yo)) Fluzone (>3 yrs.) [[id number]] Influenza, seasonal, injectable Vital Signs Date Name [...] ... - Chemistry sodium, serum 141 mmol/L 029-809 2746/01/16 carbon dioxide, venous blood 28.3 mmol/L 21.0-32.0 [...] 6.7 % 4.3-6.0 cholesterol, serum 106 mg/dL 069-332 1683/01/16 triglyceride, serum, fasting 173 mg/dL 30-200 HDL [...] A1c - Chemistry cholesterol, serum 135 mg/dL 943-391 3194/05/17 HDL cholesterol, serum 41 mg/dL > OR=46 triglyceride, serum, fasting 206 mg/dL <150 LDL cholesterol, serum 53 MG/DL (CALC) mg/dL <130 cholesterol/HDL ratio, serum 3.3 (calc) < OR=5.0 Lab Report: HGBA1C - Chemistry hemoglobin A1C, blood, as % of total hemoglobin 6.5 % 4.3-6.0 Encounters Code Encounter Date Provider Facility CPT-89152 Level 3 Est. Patient 10:13:19 ELECTRONIC [employer] GATHERING [employer]ERA PERSON Lesli Kellogg [employer] [facility] CPT-86900 Level 4 Est. Patient 13:42:02 ELECTRONIC NEWS GATHERING CAMERA PERSON Tu Landeros MD [facility] CPT-45584 Level 3 Est. Patient 14:20:36 CDT Tu Landeros MD [facility] CPT-55624 Level 4 Est. Patient 14:28:34 CDT Tu Landeros MD [facility] CPT-83012 Level 3 Est. Patient 13:33:09 CDT Tu Landeros MD [facility] CPT-96206 Level 4 Est. Patient 14:29:21 CDT Tu Landeros MD [facility] CPT-04191 Level 4 Est. Patient 09:08:17 ELECTRONIC NEWS GATHERING CAMERA PERSON Tu Landeros MD [facility] CPT-34029 Level 4 Est. Patient 14:40:19 CDT Tu Landeros MD [facility] CPT-18439 Level 4 Est. Patient 14:06:04 ELECTRONIC NEWS GATHERING CAMERA PERSON Tu Landeros MD [facility] CPT-85844 Level 3 Est. Patient 14:05:18 ELECTRONIC NEWS GATHERING CAMERA PERSON Tu Landeros MD [facility] CPT-84911 Level 3 Est. Patient 10:06:54 ELECTRONIC NEWS GATHERING [employer]ERA PERSON Miranda Farah [employer] [facility] CPT-09092 Level 4 Est. Patient 13:50:18 ELECTRONIC NEWS GATHERING CAMERA PERSON Tu Landeros MD [facility] CPT-33667 Level 3 Est. Patient 10:30:04 CDT Tu Landeros MD [facility] CPT-61167 Level 4 Est. Patient 11:03:38 CDT Tu Landeros MD [facility] CPT-79520 Level 3 Est. Patient 10:20:44 CDT Fab Morales DO [facility] CPT-73283 Level 4 Est. Patient 14:38:57 CDT Tu Landeros MD [facility] CPT-79491 Level 4 Est. Patient 14:27:39 ELECTRONIC NEWS GATHERING CAMERA PERSON Tu Landeros MD [facility] CPT-02546 Level 4 Est. Patient 09:45:25 CDT Tu Landeros MD [facility] CPT-87058 Level 4 Est. Patient 09:05:20 ELECTRONIC NEWS GATHERING CAMERA PERSON Tu Landeros MD [facility] CPT-81165 Level 4 Est. Patient 14:09:06 CDT Tu Landeros MD [facility] CPT-52542 Level 3 Est. Patient 13:36:54 CDT Tu Landeros MD [facility] CPT-53779 Level 3 Est. Patient 08:59:14 CDT uT Landeros MD [facility] CPT-52178 Level 3 Est. Patient 13:48:35 CDT Fab Morales DO [facility] CPT-81766 Level 4 Est. Patient 10:05:48 CDT Tu Landeros MD [facility] CPT-18921 Level 3 Est. Patient 13:38:42 CDT Marek BANKS [facility] CPT-88936 Level 5 Est. Patient 08:08:39 CDT Jerrica FRANCIS [facility] CPT-43611 Level 4 Est. Patient 14:23:38 CDT Tu Landeros MD [facility] CPT-37795 Level 3 Est. Patient 11:44:04 CDT Tu Landeros MD [facility] CPT-02456 Level 3 Est. Patient 11:03:20 ELECTRONIC NEWS GATHERING [employer]ERA PERSON Tu Landeros MD [facility] CPT-67935 Level 3 Est. Patient 11:03:14 ELECTRONIC NEWS GATHERING [employer]ERA PERSON Tu Landeros MD [facility] CPT-69238 Level 3 Est. Patient 12:42:49 CDT Tu Landeros MD [facility] CPT-18701 Level 3 Est. Patient 11:52:06 CDT Tu Landeros MD [facility] CPT-88100 Level 3 Est. Patient 13:58:11 CDT Tu Landeros MD [facility] CPT-55257 Level 3 Est. Patient 17:50:07 CDT Fab Morales DO [facility] CPT-57615 Level 3 Est. Patient 12:06:29 CDT Elvira Cervantes MD PhD [facility] CPT-65853 Level 3 Est. Patient 15:50:32 CDT Tu Landeros MD [facility] CPT-41014 Level 4 Est. Patient 16:08:29 CDT Tu Landeros MD [facility] CPT-60366 Level 3 Est. Patient 16:04:19 CDT Tu Landeros MD [facility] CPT-44596 Level 3 Est. Patient 11:22:30 ELECTRONIC NEWS G[employer]ERING [employer]ER[employer] PERSON Tu Landeros MD [facility] CPT-68890 Level 4 Est. Patient 16:24:02 ELECTRONIC NEWS GATHERING [employer]ERA PERSON Tu Landeros MD [facility] CPT-97117 Level 3 Est. Patient 17:21:23 ELECTRONIC NEWS GATHERING [employer]ERA PERSON Tu Landeros MD [facility] Procedures Code Procedure Name Date Entry Date Standard Description CPT-96264 Shoulder, right, comp min 2V - XRAY USE ONLY 13:50:22 CDT CPT-G0009 Administration of Pneumococcal Vaccine 15:08:26 CDT CPT-33456 Prevnar 13 Intramuscular Suspension 15:08:26 CDT 10/08 CPT-G0439 [facility] Annual Wellness Exam 14:29:22 CDT CPT-97228 Venipuncture Draw Fee 13:15:35 CDT CPT-82470 Magnesium - LAB USE ONLY 11:14:20 ELECTRONIC NEWS G[employer]ERING [employer]ER[employer] PERSON CPT-58154 Lipid - LAB USE ONLY 11:14:20 ELECTRONIC NEWS GATHERING CAMERA PERSON CPT-06543 HGBA1C - LAB USE ONLY 11:14:20 ELECTRONIC NEWS GATHERING CAMERA PERSON CPT-02678 CMP - LAB USE ONLY 11:14:19 ELECTRONIC NEWS GATHERING CAMERA PERSON CPT-04601 CBC - LAB USE ONLY 11:14:19 ELECTRONIC NEWS GATHERING CAMERA PERSON CPT-10035 Venipuncture Draw Fee 11:14:18 ELECTRONIC NEWS GATHERING CAMERA PERSON CPT-46301 First Vx - Ix admin for Medicare patients 16:46:52 CDT CPT-77873 Fluzone Preservative Free Intramuscular Suspension 16:46 :51 CDT CPT-37844 CBC - LAB USE ONLY 17:14:46 CDT CPT-18012 HGBA1C - LAB USE ONLY 17:14:46 CDT CPT-98988 Venipuncture Draw Fee 17:14:46 CDT CPT-G0438 Initial Annual Wellness Exam 14:13:04 CDT CPT-65344 Breathing Tx 10:06:54 ELECTRONIC NEWS GATHERING [employer] PERSON CPT-08599 Postop F/U Visit 10:02:45 CDT CPT-LR Lesion Removal 09:02:56 CDT CPT-JTINJ Asp/Joint Injection 15:51:27 ELECTRONIC NEWS GATHERING [employer] PERSON CPT-OV Office Visit 15:52:02 ELECTRONIC NEWS GATHERING [employer] PERSON CPT-OV Office Visit 15:45:11 CDT CPT-000 Give Zostavax 14:09:06 CDT CPT-98843 Administration single or combination vaccine inc oral 15 :19:04 CDT CPT-13557 Zoster Vaccine (Zostavax) 15:19:04 CDT CPT-29254 Administration single or combination vaccine inc oral 20 :51:03 CDT CPT-68314 Influenza split virus > age 3 20:51:03 CDT CPT-44086 No Charge Offi Visit 14:52:03 CDT CPT-OV Office Visit 14:57:43 CDT CPT-OV Office Visit 15:22:32 CDT CPT-50580 Administration single or combination vaccine inc oral 11 :33:15 CDT CPT-57977 Influenza split virus > age 3 11:33:15 CDT
--- OUTSIDE RECORDS SUMMARY | 2018-04-25 14:31 | XMS REPORT | Clinical Summary ---
Author Author Admin, SACHI Organization [employer] Address Unknown Phone Unavailable Allergies, Adverse Reactions, [...] MD PhD HEALTH SCREENING ICD-V70.0 Inactive Elvira Cervnates MD PhD 2011 INSOMNIA, PERSISTENT ICD-307.42 Inactive [...] 100 MG CAPS 1 po TID GABAPENTIN 02265511919 Active Tu Landeros MD Active DICLOFENAC SODIUM 50 MG ORAL TBEC 1 po BID PRN Pain DICLOFENAC SODIUM 46471236363 No Longer Active Tu Landeros MD Active CYCLOBENZAPRINE HCL 10 MG ORAL TABS 1 po TID PRN Muscle Spasm CYCLOBENZAPRINE HCL 20695715526 No Longer Active Tu Landeros MD Active INVOKANA 100 MG ORAL TABS 1 po qd CANAGLIFLOZIN 82021429390 Active Tu Landeros MD Active GLIPIZIDE 5 MG ORAL TABS 1 po qd GLIPIZIDE 29096092954 No Longer Active Tu Landeros MD Active VENLAFAXINE HCL 75 MG ORAL TABS 1 po BID VENLAFAXINE HCL 40243882491 Active Tu Landeros MD Active GLIMEPIRIDE 1 MG ORAL TABS 1 po qd GLIMEPIRIDE 86485056386 No Longer Active Tu Landeros MD Active TRUE METRIX BLOOD GLUCOSE TEST INVITR STRP Test blood sugar BID Dx: E11.9 GLUCOSE BLOOD 99518024246 Active Tu Landeros MD Active TRUE METRIX AIR GLUCOSE METER W/DEVICE KIT Test blood glucose BID Dx: E11.9 BLOOD GLUCOSE MONITORING SUPPL 79054540211 Active Tu Landeros MD Active TRUETEST TEST INVITR STRP test blood sugar twice daily. DX 250.0 GLUCOSE BLOOD 08946780210 No Longer Active Mirna Stanley LPN Active TRUEDRAW LANCING DEVICE MISC test blood sugar twice daily dx: 250.00 LANCET DEVICES 54534253117 No Longer Active Mirna Stanley LPN Active ENALAPRIL MALEATE 20 MG TABS 2 po qd ENALAPRIL MALEATE 29023265750 Active Lesli Kellogg APRN Active SUPER B COMPLEX/VITAMIN C TABS 1 qd B COMPLEX-C 85144499616 No Longer Active Tu Landeros MD Active ASPIRIN EC 81 MG ORAL TBEC 1 po qd ASPIRIN 02606270230 Active Tu Landeros MD Active GLUCOSAMINE 500 MG TABS 2 po qd GLUCOSAMINE Active Tu Landeros MD Active SIMVASTATIN 40 MG TABS 0.5 po qHS SIMVASTATIN 94978595207 Active Tu Landeros MD Active FISH OIL 1000 MG CAPS 1 po qd OMEGA-3 FATTY ACIDS 25826913402 Active Tu Landeros MD Active METFORMIN HCL 1000 MG TABS 1 po BID METFORMIN HCL 46396933813 Active Tu Landeros MD Active KLOR-CON 10 10 MEQ CR-TABS 2 po qd POTASSIUM CHLORIDE 19014939438 Active Tu Landeros MD Active FUROSEMIDE 40 MG TAB 1 po qd FUROSEMIDE 13475837464 Active Tu Landeros MD Active REQUIP 2 MG ORAL TABS 1 po qHS PRN Restless legs ROPINIROLE HCL 81512344757 Active Tu Landeros MD Active REQUIP 2 MG TABS Take one tablet at bedtime prn ROPINIROLE HCL 94711848781 No Longer Active Tu Landeros MD Active VENTOLIN HFA 108 (90 BASE) MCG/ACT AERS 1-2 puffs every 4 hours if needed for cough/congestion ALBUTEROL SULFATE 43685324251 No Longer Active Ambika Aden APRN Active ZITHROMAX 250 MG TAB 2 po today, then 1 po q days 2-5 AZITHROMYCIN 96214495995 No Longer Active Miranda Suresh APRN Active FLONASE 50 MCG/ACT SUSP 1 spray each nostril twice daily until bottle empty FLUTICASONE PROPIONATE 72190809465 No Longer Active Tu Landeros MD Active COLACE 100 MG CAP 1 po BID PRN Constipation DOCUSATE SODIUM 38518503047 Active Tu Landeros MD Active TRUERESULT BLOOD GLUCOSE W/DEVICE KIT test blood sugar twice daily dx 250.00 BLOOD GLUCOSE MONITORING SUPPL 70960077028 No Longer Active Tu Landeros MD Active TRUEDRAW LANCING DEVICE MISC Test twice a day dx 250.0 LANCET DEVICES 29674588439 No Longer Active Tu Landeros MD Active PREDNISONE 20 MG TAB 2 tablets once daily for 2 days, then 1 tablet once daily for 2 days PREDNISONE 51501113633 No Longer Active Tu Landeros MD Active DICLOFENAC SODIUM 50 MG TBEC 1 tablet by mouth three times a day as needed DICLOFENAC SODIUM 57361928775 No Longer Active Fab Morales DO Active EMBRACE BLOOD GLUCOSE TEST STRP test blood sugar twice daily DX 250.0 2014 GLUCOSE BLOOD 09840009196 No Longer Active Tu Landeros MD Active TRUETEST TEST STRP test blood sugar three times daily dx: 250.00 GLUCOSE BLOOD 06320382207 No Longer Active Suze Corey RMA Active TRUERESULT BLOOD GLUCOSE W/DEVICE KIT use to test blood sugar tid dx: 250.00 BLOOD GLUCOSE MONITORING SUPPL 41129797463 No Longer Active Suze Corey RMA Active ALIGN 4 MG CAPS 1 tid PROBIOTIC PRODUCT 73335918841 No Longer Active Shaun Sy MD Active CIPRO 500 MG TABS 1 bid x 14 days start 09-28-13 CIPROFLOXACIN HCL 25863554637 No Longer Active Shaun Sy MD Active TRAMADOL HCL 50 MG TABS 1-2 tablets every 6 hours as needed for pain TRAMADOL HCL 63412152302 Active Tu Landeros MD Active HYDROCODONE-ACETAMINOPHEN 5-325 MG TABS 1 tab by mouth every 6 hours as needed for pain HYDROCODONE-ACETAMINOPHEN 58682046580 No Longer Active Tu Landeros MD Active OMEPRAZOLE 20 MG CPDR 1 po q a.m. OMEPRAZOLE 84383704800 Active Fab Morales DO Active GABAPENTIN 100 MG CAPS 1 po bid GABAPENTIN 63628627013 No Longer Active Tu Landeros MD Active B-12 100 MCG TABS Take one by mouth daily CYANOCOBALAMIN 61563018470 No Longer Active Tu Landeros MD Active BACTRIM DS 800-160 MG TABS 1 bid x 14 day start 09-28-13 SULFAMETHOXAZOLE-TRIMETHOPRIM 29430077262 No Longer Active Tu Landeros MD Active CARVEDILOL 12.5 MG TABS 1 po BID CARVEDILOL 95913471979 Active Lesli Kellogg APRN Active TRILIPIX 135 MG CPDR 1 q hs CHOLINE FENOFIBRATE 39861130203 Active Tu Landeros MD Active FENOFIBRATE 145 MG TABS 1 po qd FENOFIBRATE 80656372070 No Longer Active JASPREET Perez Active OMEPRAZOLE 20 MG TBEC 1 PO 30 MIN BEFORE 1ST MEAL OMEPRAZOLE 73017535198 No Longer Active JASPREET Perez Active SIMVASTATIN 40 MG TABS Take one by mouth daily SIMVASTATIN 13970054314 No Longer Active JASPREET Perez Active VENLAFAXINE HCL 75 MG TABS 1 po BID VENLAFAXINE HCL 59501156652 No Longer Active JASPREET Perez Active CIPRO 500 MG TAB 1 tablet by mouth twice daily CIPROFLOXACIN HCL 20960281105 No Longer Active Tu Landeros MD Active VENLAFAXINE HCL 37.5 MG TABS 1 po BID VENLAFAXINE HCL 45548779689 No Longer Active Suzecandido Nicole RMA Active LAMISIL 250 MG TAB 1 po qd TERBINAFINE HCL 41107402241 No Longer Active Tu Landeros MD Active LORTAB 5 5-500 MG TABS 1/2 to 1 tablet by mouth every 4 hours as needed for pain HYDROCODONE-ACETAMINOPHEN 94276159231 No Longer Active Tu Landeros MD Active HYDROCODONE-ACETAMINOPHEN 5-500 MG TABS take one po Q 4-6 hours prn HYDROCODONE-ACETAMINOPHEN 51154076707 No Longer Active Tu Landeros MD Active BACTRIM DS 800-160 MG TABS 1 po BID x 7 days SULFAMETHOXAZOLE-TRIMETHOPRIM 95159522732 No Longer Active Tu Landeros MD Active VENLAFAXINE HCL 75 MG TABS 1 po BID VENLAFAXINE HCL 40065878214 No Longer Active Elvira Cervantes MD PhD Active TRAMADOL HCL 50 MG TABS 1 tablets every 6 hours as needed for pain TRAMADOL HCL 74382976260 No Longer Active Tu Landeros MD Active ACCU-CHEK FASTCLIX LANCETS MISC Use to check bloodsugar three times daily as needed LANCETS 73411536128 No Longer Active Tu Landeros MD Active ACCU-CHEK KEYONA PLUS STRP Use for testing bloodsugars three times daily as needed GLUCOSE BLOOD 91083662024 No Longer Active Tu Landeros MD Active ACCU-CHEK KEYONA PLUS W/DEVICE KIT Use for testing bloodsugars three times daily as needed BLOOD GLUCOSE MONITORING SUPPL 50882651933 No Longer Active Tu Landeros MD Active SPIRONOLACTONE 25 MG TAB 0.5 tablet by mouth daily SPIRONOLACTONE 45473507332 No Longer Active Tu Landeros MD Active ALPRAZOLAM 0.5 MG TABS 1 tab every 6hrs as needed ALPRAZOLAM 37761203991 No Longer Active Tu Landeros MD Active AUGMENTIN 875-125 MG TAB 1 tab by mouth twice daily with food AMOXICILLIN-POT CLAVULANATE 15474008317 No Longer Active Tu Landeros MD Active PREDNISONE 20 MG TAB 2 tabs daily for 3 days, 1 tab daily for 3 days, 1/2 tab daily for 2 days PREDNISONE 62749144510 No Longer Active Tu Landeros MD Active XANAX 0.5 MG TABS 1 tablet every 6 hrs prn ALPRAZOLAM 53737780755 No Longer Active Tu Landeros MD Active PREDNISONE 20 MG TAB 2 tabs daily for 3 days, 1 tab daily for 3 days, 1/2 tab daily for 2 days PREDNISONE 36542043741 No Longer Active Tu Landeros MD Active TRIAMCINOLONE ACETONIDE 0.1 % OINT Apply to affected areas TID for up to 2 weeks TRIAMCINOLONE ACETONIDE 10400535346 No Longer Active Tu Landeros MD Active LORTAB 5 5-500 MG TABS 1/2 to 1 tablet by mouth every 4 hours as needed for pain HYDROCODONE-ACETAMINOPHEN 72022515689 No Longer Active Tu Landeros MD Active MULTIVITAMINS TABS Take one by mouth daily MULTIPLE VITAMIN 11921576415 No Longer Active Tu Landeros MD Active MELATONIN 5 MG TABS Take one by mouth daily MELATONIN 18942882950 No Longer Active Tu Landeros MD Active SOMA 350 MG TAB 1 po q 6 hours prn spasm CARISOPRODOL 49899681333 No Longer Active Tu Landeros MD Active MECLIZINE HCL 25 MG CHEW TAB 1 four times a day as needed for dizziness 08/05 MECLIZINE HCL 61685131758 No Longer Active Fab Morales DO Active ANGEL BREEZE 2 TEST DISK test tid prn GLUCOSE BLOOD 62322034378 No Longer Active Negra Scott RN Active REGLAN 10 MG TAB 1 po TID PRN Nausea METOCLOPRAMIDE HCL 16580235190 No Longer Active Tu Landeros MD Active METFORMIN HCL 500 MG TABS 1 PO BID METFORMIN HCL 35409525900 No Longer Active Tu Landeros MD Active AMBIEN 10 MG TAB 1 tab by mouth at bedtime as needed for sleep ZOLPIDEM TARTRATE 15936913132 No Longer Active Tu Landeros MD Active FLUOXETINE HCL 40 MG CAPS 1 po q day FLUOXETINE HCL 13112102777 No Longer Active Mayra Seneca Active TRILIPIX 135 MG CPDR 1 po qd CHOLINE FENOFIBRATE 81543184731 No Longer Active Tu Landeros MD Active AMBIEN 10 MG TAB 1 tab by mouth at bedtime as needed for sleep AMBIEN 10 MG TAB 088460 ZOLPIDEM TARTRATE Inactive METFORMIN HCL 500 MG TABS 1 PO BID METFORMIN HCL 500 MG TABS 299636 METFORMIN HCL Inactive REGLAN 10 MG TAB 1 po TID PRN Nausea REGLAN 10 MG TAB 505854 METOCLOPRAMIDE HCL Inactive MECLIZINE HCL 25 MG CHEW TAB 1 four times a day as needed for dizziness 08/05 MECLIZINE HCL 25 MG CHEW TAB 306323 MECLIZINE HCL Inactive SOMA 350 MG TAB 1 po q 6 hours prn spasm SOMA 350 MG TAB 638469 CARISOPRODOL Inactive MELATONIN 5 MG TABS Take one by mouth daily MELATONIN 5 MG TABS 803659 MELATONIN Inactive MULTIVITAMINS TABS Take one by mouth daily MULTIVITAMINS TABS MULTIPLE VITAMIN Inactive LORTAB 5 5-500 MG TABS 1/2 to 1 tablet by mouth every 4 hours as needed for pain LORTAB 5 5-500 MG TABS 544133 HYDROCODONE- ACETAMINOPHEN Inactive XANAX 0.5 MG TABS 1 tablet every 6 hrs prn XANAX 0.5 MG TABS 293163 ALPRAZOLAM Inactive AUGMENTIN 875-125 MG TAB 1 tab by mouth twice daily with food AUGMENTIN 875-125 MG TAB 540177 AMOXICILLIN-POT CLAVULANATE Inactive ALPRAZOLAM 0.5 MG TABS 1 tab every 6hrs as needed ALPRAZOLAM 0.5 MG TABS 200252 ALPRAZOLAM Inactive SPIRONOLACTONE 25 MG TAB 0.5 tablet by mouth daily SPIRONOLACTONE 25 MG TAB 747996 SPIRONOLACTONE Inactive ACCU-CHEK KEYONA PLUS W/DEVICE KIT Use for testing bloodsugars three times daily as needed ACCU-CHEK KEYONA PLUS W/DEVICE KIT BLOOD GLUCOSE MONITORING SUPPL Inactive ACCU-CHEK KEYONA PLUS STRP Use for testing bloodsugars three times daily as needed ACCU-CHEK KEYONA PLUS STRP GLUCOSE BLOOD Inactive ACCU-CHEK FASTCLIX LANCETS MISC Use to check bloodsugar three times daily as needed ACCU-CHEK FASTCLIX LANCETS MISC 92398354862 LANCETS Inactive TRAMADOL HCL 50 MG TABS 1 tablets every 6 hours as needed for pain TRAMADOL HCL 50 MG TABS 951404 TRAMADOL HCL Inactive VENLAFAXINE HCL 75 MG TABS 1 po BID VENLAFAXINE HCL 75 MG TABS 114737 VENLAFAXINE HCL Inactive HYDROCODONE-ACETAMINOPHEN 5-500 MG TABS take one po Q 4-6 hours prn HYDROCODONE-ACETAMINOPHEN 5-500 MG TABS 781482 HYDROCODONE- ACETAMINOPHEN Inactive LORTAB 5 5-500 MG TABS 1/2 to 1 tablet by mouth every 4 hours as needed for pain LORTAB 5 5-500 MG TABS 591175 HYDROCODONE- ACETAMINOPHEN Inactive LAMISIL 250 MG TAB 1 po qd LAMISIL 250 MG TAB 236040 TERBINAFINE HCL Inactive VENLAFAXINE HCL 37.5 MG TABS 1 po BID VENLAFAXINE HCL 37.5 MG TABS 382982 VENLAFAXINE HCL Inactive CIPRO 500 MG TAB 1 tablet by mouth twice daily CIPRO 500 MG TAB 863886 CIPROFLOXACIN HCL Inactive VENLAFAXINE HCL 75 MG TABS 1 po BID VENLAFAXINE HCL 75 MG TABS 338732 VENLAFAXINE HCL Inactive SIMVASTATIN 40 MG TABS Take one by mouth daily SIMVASTATIN 40 MG TABS 820471 SIMVASTATIN Inactive OMEPRAZOLE 20 MG TBEC 1 PO 30 MIN BEFORE 1ST MEAL OMEPRAZOLE 20 MG TBEC 590558 OMEPRAZOLE Inactive FENOFIBRATE 145 MG TABS 1 po qd FENOFIBRATE 145 MG TABS 512828 FENOFIBRATE Inactive BACTRIM DS 800-160 MG TABS 1 bid x 14 day start 09-28-13 BACTRIM DS 800-160 MG TABS 126058 SULFAMETHOXAZOLE-TRIMETHOPRIM Inactive B-12 100 MCG TABS Take one by mouth daily B-12 100 MCG TABS CYANOCOBALAMIN Inactive GABAPENTIN 100 MG CAPS 1 po bid GABAPENTIN 100 MG CAPS 530838 GABAPENTIN Inactive HYDROCODONE-ACETAMINOPHEN 5-325 MG TABS 1 tab by mouth every 6 hours as needed for pain HYDROCODONE-ACETAMINOPHEN 5-325 MG TABS 095639 HYDROCODONE-ACETAMINOPHEN Inactive CIPRO 500 MG TABS 1 bid x 14 days start 09-28-13 CIPRO 500 MG TABS 792813 CIPROFLOXACIN HCL Inactive ALIGN 4 MG CAPS [...] as needed DICLOFENAC SODIUM 50 MG TBEC 278606 DICLOFENAC SODIUM Inactive PREDNISONE 20 MG TAB 2 tablets once daily for 2 days, then 1 tablet once daily for 2 days PREDNISONE 20 MG TAB 540425 PREDNISONE Inactive TRUEDRAW LANCING DEVICE MISC Test twice a day dx 250.0 TRUEDRAW LANCING DEVICE MISC LANCET DEVICES Inactive TRUERESULT BLOOD GLUCOSE W/DEVICE KIT test blood sugar twice daily dx 250.00 TRUERESULT BLOOD GLUCOSE W/DEVICE KIT BLOOD GLUCOSE MONITORING SUPPL Inactive FLONASE 50 MCG/ACT SUSP 1 spray each nostril twice daily until bottle empty FLONASE 50 MCG/ACT SUSP 0934029 FLUTICASONE PROPIONATE Inactive VENTOLIN HFA 108 (90 BASE) MCG/ACT AERS 1-2 puffs every 4 hours if needed for cough/congestion VENTOLIN HFA 108 (90 BASE) MCG/ACT AERS ALBUTEROL SULFATE Inactive REQUIP 2 MG TABS Take one tablet at bedtime prn REQUIP 2 MG TABS 347641 ROPINIROLE HCL Inactive SUPER B COMPLEX/VITAMIN C TABS 1 qd SUPER B COMPLEX/ VITAMIN C TABS 15267111948 B COMPLEX-C Inactive TRUEDRAW LANCING DEVICE MISC test blood sugar twice daily dx: 250.00 TRUEDRAW LANCING DEVICE MISC LANCET DEVICES Inactive TRUETEST TEST INVITR STRP test blood sugar twice daily. DX 250.0 TRUETEST TEST INVITR STRP GLUCOSE BLOOD Inactive CYCLOBENZAPRINE HCL 10 MG ORAL TABS 1 po TID PRN Muscle Spasm CYCLOBENZAPRINE HCL 10 MG ORAL TABS 978234 CYCLOBENZAPRINE HCL Inactive DICLOFENAC SODIUM 50 MG ORAL TBEC 1 po BID PRN Pain DICLOFENAC SODIUM 50 MG ORAL TBEC 766122 DICLOFENAC SODIUM Inactive TRIAMCINOLONE ACETONIDE 0.1 % OINT Apply to affected areas TID for up to 2 weeks TRIAMCINOLONE ACETONIDE 0.1 % OINT 9293816 TRIAMCINOLONE ACETONIDE Inactive PREDNISONE 20 MG TAB 2 tabs daily for 3 days, 1 tab daily for 3 days, 1/2 tab daily for 2 days PREDNISONE 20 MG TAB 119530 PREDNISONE Inactive PREDNISONE 20 MG TAB 2 tabs daily for 3 days, 1 tab daily for 3 days, 1/2 tab daily for 2 days PREDNISONE 20 MG TAB 158743 PREDNISONE Inactive BACTRIM DS 800-160 MG TABS 1 po BID x 7 days BACTRIM DS 800-160 MG TABS 300001 SULFAMETHOXAZOLE-TRIMETHOPRIM Inactive ZITHROMAX 250 MG TAB 2 po today, then 1 po q days 2-5 ZITHROMAX 250 MG TAB 916170 AZITHROMYCIN Inactive Advance Directives Directive Description Start Date DISCUSSED WITH PATIENT -- NO DECISION MADE Immunizations Vaccine Administration Date Value Standard Description Seasonal influenza vaccine, injectable, containing preservative, for > 3 years old (Afluria, FluLaval, Fluzone, Fluvirin, Fluarix, Agriflu(>=18 yo)) Fluzone (>3 yrs.) [[id number]] Influenza, seasonal, injectable influenza immunization (Flu Vax) has been administered 02/22/2012 influenza virus vaccine, unspecified formulation Seasonal influenza vaccine, injectable, containing preservative, for > 3 years old (Afluria, FluLaval, Fluzone, Fluvirin, Fluarix, Agriflu(>=18 yo)) Fluzone (>3 yrs.) [[id number]] Influenza, seasonal, injectable Vital Signs Date Name [...] Magnesium - Chemistry sodium, serum 143 mmol/L 423-777 4494/01/10 carbon dioxide, venous blood 28.0 mmol/L 21.0-32.0 potassium, serum 4.5 mmol/L 3.5-5.2 chloride, serum 104 mmol/L 98-107 blood glucose 158 mg/dL 65-110 urea nitrogen, blood 23 mg/dL 7-18 creatinine, serum 1.06 mg/dL 0.55-1.30 alanine aminotransferase (SGPT), serum 42 U/L 12-78 aspartate aminotransferase (SGOT), serum 32 U/L 15-37 calcium, serum 9.3 mg/dL 8.5-10.1 bilirubin, serum, total 0.20 mg/dL 0.00-1.00 cholesterol, serum 177 mg/dL 009-244 4590/01/10 triglyceride, serum, fasting 320 mg/dL 30-200 HDL cholesterol, serum 46 mg/dL 32-96 LDL cholesterol, serum 67 mg/dL 0-130 Lab Report: COMPREHENSIVE METABOLIC PANEL, LIPID PANEL, HEMOGLOBIN A1c - Chemistry cholesterol, serum 135 mg/dL 568-090 9713/05/17 HDL cholesterol, serum 41 mg/dL > OR=46 [...] <30 Encounters Code Encounter Date Provider Facility CPT-88247 Level 4 Est. Patient 14:28:34 CDT Tu Landeros MD [facility] CPT-11071 Level 3 Est. Patient 13:33:09 CDT Tu Landeros MD [facility] CPT-77381 Level 4 Est. Patient 14:29:21 CDT Tu Landeros MD [facility] CPT-98420 Level 4 Est. Patient 09:08:17 POLICE COMMUNICATIONS DISPATCHER Tu Landeros MD [facility] CPT-99925 Level 4 Est. Patient 14:40:19 CDT Tu Landeros MD [facility] CPT-59153 Level 4 Est. Patient 14:06:04 POLICE COMMUNICATIONS DISPATCHER Tu Landeros MD [facility] CPT-96154 Level 3 Est. Patient 14:05:18 POLICE COMMUNICATIONS DISPATCHER Tu Landeros MD [facility] CPT-76449 Level 3 Est. Patient 10:06:54 POLICE COMMUNICATIONS DISPATCHER [facility] Level [facility] Est. Patient 13:50:18 POLICE COMMUNICATIONS DISPATCHER Tu Landeros MD [facility] CPT-49197 Level 3 Est. Patient 10:30:04 CDT Tu Landeros MD [facility] CPT-15294 Level 4 Est. Patient 11:03:38 CDT Tu Landeros MD [facility] CPT-19869 Level 3 Est. Patient 10:20:44 CDT Fab Morales DO [facility] CPT-39302 Level 4 Est. Patient 14:38:57 CDT Tu Landeros MD [facility] CPT-06395 Level 4 Est. Patient 14:27:39 POLICE COMMUNICATIONS DISPATCHER Tu Landeros MD [facility] CPT-26957 Level 4 Est. Patient 09:45:25 CDT Tu Landeros MD [facility] CPT-45165 Level 4 Est. Patient 09:05:20 POLICE COMMUNICATIONS DISPATCHER Tu Landeros MD [facility] CPT-65343 Level 4 Est. Patient 14:09:06 CDT Tu Landeros MD [facility] CPT-06901 Level 3 Est. Patient 13:36:54 CDT Tu Landeros MD [facility] CPT-59923 Level 3 Est. Patient 08:59:14 CDT Tu Landeros MD [facility] CPT-06476 Level 3 Est. Patient 13:48:35 CDT Fab Morales DO [facility] CPT-05236 Level 4 Est. Patient 10:05:48 CDT Tu Landeros MD [facility] CPT-16404 Level 3 Est. Patient 13:38:42 CDT Marek BANKS [facility] CPT-79594 Level 5 Est. Patient 08:08:39 CDT Jerrica FRANCIS [facility] CPT-51742 Level 4 Est. Patient 14:23:38 CDT Tu Landeros MD [facility] CPT-79870 Level 3 Est. Patient 11:44:04 CDT Tu Landeros MD [facility] CPT-89865 Level 3 Est. Patient 11:03:20 POLICE COMMUNICATIONS DISPATCHER Tu Landeros MD [facility] CPT-09590 Level 3 Est. Patient 11:03:14 POLICE COMMUNICATIONS DISPATCHER Tu Landeros MD [facility] CPT-93225 Level 3 Est. Patient 12:42:49 CDT Tu Landeros MD [facility] CPT-48929 Level 3 Est. Patient 11:52:06 CDT Tu Landeros MD [facility] CPT-32532 Level 3 Est. Patient 13:58:11 CDT Tu Landeros MD [facility] CPT-94387 Level 3 Est. Patient 17:50:07 CDT Fab Morales DO [facility] CPT-29776 Level 3 Est. Patient 12:06:29 CDT Elvira Cervantes MD [facility] CPT-83732 Level 3 Est. Patient 15:50:32 CDT Tu Landeros MD [facility] CPT-96873 Level 4 Est. Patient 16:08:29 CDT Tu Landeros MD [facility] CPT-75581 Level 3 Est. Patient 16:04:19 CDT Tu Landeros MD [facility] CPT-30868 Level 3 Est. Patient 11:22:30 POLICE COMMUNICATIONS DISPATCHER Tu Landeros MD [facility] CPT-66534 Level 4 Est. Patient 16:24:02 POLICE COMMUNICATIONS DISPATCHER Tu Landeros MD [facility] CPT-16785 Level 3 Est. Patient 17:21:23 POLICE COMMUNICATIONS DISPATCHER Tu Landeros MD [facility] Procedures Code Procedure Name Date Entry Date Standard Description CPT-02990 Shoulder, right, comp min 2V - XRAY USE ONLY 13:50:22 CDT CPT-G0009 Administration of Pneumococcal Vaccine 15:08:26 CDT CPT-03008 Prevnar 13 Intramuscular Suspension 15:08:26 CDT 10/08 CPT-G0439 [facility] Annual Wellness Exam 14:29:22 CDT CPT-40963 Venipuncture Draw Fee 13:15:35 CDT CPT-33438 Magnesium - LAB USE ONLY 11:14:20 POLICE COMMUNICATIONS DISPATCHER CPT-00382 Lipid - LAB USE ONLY 11:14:20 POLICE COMMUNICATIONS DISPATCHER CPT-96134 HGBA1C - LAB USE ONLY 11:14:20 POLICE COMMUNICATIONS DISPATCHER CPT-78887 CMP - LAB USE ONLY 11:14:19 POLICE COMMUNICATIONS DISPATCHER CPT-76572 CBC - LAB USE ONLY 11:14:19 POLICE COMMUNICATIONS DISPATCHER CPT-02522 Venipuncture Draw Fee 11:14:18 POLICE COMMUNICATIONS DISPATCHER CPT-32926 First Vx - Ix admin for Medicare patients 16:46:52 CDT CPT-16498 Fluzone Preservative Free Intramuscular Suspension 16:46 :51 CDT CPT-69428 CBC - LAB USE ONLY 17:14:46 CDT CPT-26005 HGBA1C - LAB USE ONLY 17:14:46 CDT CPT-87694 Venipuncture Draw Fee 17:14:46 CDT CPT-G0438 Initial Annual Wellness Exam 14:13:04 CDT CPT-60584 Breathing Tx 10:06:54 POLICE COMMUNICATIONS DISPATCHER CPT-25855 Postop F/U Visit 10:02:45 CDT CPT-LR Lesion Removal 09:02:56 CDT CPT-JTINJ Asp/Joint Injection 15:51:27 POLICE COMMUNICATIONS DISPATCHER CPT-OV Office Visit 15:52:02 POLICE COMMUNICATIONS DISPATCHER CPT-OV Office Visit 15:45:11 CDT CPT-000 Give Zostavax 14:09:06 CDT CPT-76363 Administration single or combination vaccine inc oral 15 :19:04 CDT CPT-72856 Zoster Vaccine (Zostavax) 15:19:04 CDT CPT-65793 Administration single or combination vaccine inc oral 20 :51:03 CDT CPT-89163 Influenza split virus > age 3 20:51:03 CDT CPT-62378 No Charge Offi Visit 14:52:03 CDT CPT-OV Office Visit 14:57:43 CDT CPT-OV Office Visit 15:22:32 CDT CPT-86728 Administration single or combination vaccine inc oral 11 :33:15 CDT CPT-47935 Influenza split virus > age 3 11:33:15 CDT
--- OUTSIDE RECORDS SUMMARY | 2018-04-25 14:32 | XMS REPORT | Clinical Summary ---
Author Author Admin, SACHI Organization [email or web address] Address Unknown Phone Unavailable Allergies, Adverse Reactions, [...] region Great toe pain 729.5 Active Tu Lanedros MD Pain in limb POSTMENOPAUSAL BLEEDING ICD-627.1 [...] 1 po BID PRN Pain DICLOFENAC SODIUM 14129608902 Active Tu Landeros MD Active GABAPENTIN 100 MG ORAL CAPSULE 1 po TID GABAPENTIN 91028384928 Active Tu Landeros MD Active DICLOFENAC SODIUM 50 MG ORAL TABLET DELAYED RELEASE 1 po BID PRN Pain DICLOFENAC SODIUM 10447821472 No Longer Active Tu Landeros MD Active CYCLOBENZAPRINE HCL 10 MG ORAL TABLET 1 po TID PRN Muscle Spasm CYCLOBENZAPRINE HCL 44463969684 No Longer Active Tu Landeros MD Active INVOKANA 100 MG ORAL TABLET 1 po qd CANAGLIFLOZIN 82928592439 Active Tu Landeros MD Active GLIPIZIDE 5 MG ORAL TABLET 1 po qd GLIPIZIDE 36812803632 No Longer Active Tu Landeros MD Active VENLAFAXINE HCL 75 MG ORAL TABLET 1 po BID VENLAFAXINE HCL 19478642157 Active Tu Landeros MD Active GLIMEPIRIDE 1 MG ORAL TABLET 1 po qd GLIMEPIRIDE 80692706839 No Longer Active Tu Landeros MD Active TRUE METRIX BLOOD GLUCOSE TEST IN VITRO STRIP Test blood sugar BID Dx: E11.9 GLUCOSE BLOOD 86006241346 Active Tu Landeros MD Active TRUE METRIX AIR GLUCOSE METER w/Device KIT Test blood glucose BID Dx: E11.9 BLOOD GLUCOSE MONITORING SUPPL 33656673843 Active Tu Landeros MD Active TRUETEST TEST IN VITRO STRIP test blood sugar twice daily. DX 250.0 GLUCOSE BLOOD 56223468994 No Longer Active Mirna Stanley LPN Active TRUEDRAW LANCING DEVICE test blood sugar twice daily dx: 250.00 LANCET DEVICES 36558972380 No Longer Active Mirna Stanley LPN Active ENALAPRIL MALEATE 20 MG ORAL TABLET 2 po qd ENALAPRIL MALEATE 16994770911 Active Tu Landeros MD Active SUPER B COMPLEX/VITAMIN C ORAL TABLET 1 qd B COMPLEX- C 92217400017 No Longer Active Tu Landeros MD Active ASPIRIN EC 81 MG ORAL TABLET DELAYED RELEASE 1 po qd ASPIRIN 81789376713 Active Tu Landeros MD Active GLUCOSAMINE 500 MG TABS 2 po qd GLUCOSAMINE Active Tu Landeros MD Active SIMVASTATIN 40 MG ORAL TABLET 0.5 po qHS SIMVASTATIN 68622179898 Active Tu Landeros MD Active FISH OIL 1000 MG ORAL CAPSULE 1 po qd OMEGA-3 FATTY ACIDS 28206675374 Active Tu Landeros MD Active METFORMIN HCL 1000 MG ORAL TABLET 1 po BID METFORMIN HCL 78318184431 Active Tu Landeros MD Active KLOR-CON 10 10 MEQ ORAL TABLET EXTENDED RELEASE 2 po qd POTASSIUM CHLORIDE 53181603400 Active Tu Landeros MD Active FUROSEMIDE 40 MG ORAL TABLET 1 po qd FUROSEMIDE 18551955384 Active Tu Landeros MD Active REQUIP 2 MG ORAL TABLET 1 po qHS PRN Restless legs ROPINIROLE HCL 66815435278 Active Tu Landeros MD Active REQUIP 2 MG ORAL TABLET Take one tablet at bedtime prn ROPINIROLE HCL 25972270397 No Longer Active Tu Landeros MD Active VENTOLIN HFA 108 (90 Base) MCG/ACT INHALATION AEROSOL SOLUTION 1-2 puffs every 4 hours if needed for cough/congestion ALBUTEROL SULFATE 70137979587 No Longer Active Ambika Aden APRN Active ZITHROMAX 250 MG ORAL TABLET 2 po today, then 1 po q days 2-5 AZITHROMYCIN 04901802805 No Longer Active Miranda Suresh APRN Active FLONASE 50 MCG/ACT NASAL SUSPENSION 1 spray each nostril twice daily until bottle empty FLUTICASONE PROPIONATE 63906905970 No Longer Active Tu Landeros MD Active COLACE 100 MG ORAL CAPSULE 1 po BID PRN Constipation DOCUSATE SODIUM 28478428455 Active Tu Landeros MD Active TRUERESULT BLOOD GLUCOSE w/Device KIT test blood sugar twice daily dx 250.00 BLOOD GLUCOSE MONITORING SUPPL 86769907786 No Longer Active Tu Landeros MD Active TRUEDRAW LANCING DEVICE Test twice a day dx 250.0 LANCET DEVICES 40427217637 No Longer Active Tu Landeros MD Active PREDNISONE 20 MG ORAL TABLET 2 tablets once daily for 2 days, then 1 tablet once daily for 2 days PREDNISONE 59022322547 No Longer Active Tu Landeros MD Active DICLOFENAC SODIUM 50 MG ORAL TABLET DELAYED RELEASE 1 tablet by mouth three times a day as needed DICLOFENAC SODIUM 82074178405 No Longer Active Fab Morales DO Active EMBRACE BLOOD GLUCOSE TEST IN VITRO STRIP test blood sugar twice daily DX 250.0 GLUCOSE BLOOD 40063689107 No Longer Active Tu Landeros MD Active TRUETEST TEST IN VITRO STRIP test blood sugar three times daily dx: 250.00 GLUCOSE BLOOD 61693646326 No Longer Active Suze Corey RMA Active TRUERESULT BLOOD GLUCOSE w/Device KIT use to test blood sugar tid dx: 250.00 BLOOD GLUCOSE MONITORING SUPPL 18118120524 No Longer Active Suze Corey RMA Active ALIGN 4 MG ORAL CAPSULE 1 tid PROBIOTIC PRODUCT 18050464267 No Longer Active Shaun Sy MD Active CIPRO 500 MG ORAL TABLET 1 bid x 14 days start 09-28-13 CIPROFLOXACIN HCL 36648301022 No Longer Active Shaun Sy MD Active TRAMADOL HCL 50 MG ORAL TABLET 1-2 tablets every 6 hours as needed for pain TRAMADOL HCL 54007783930 Active Tu Landeros MD Active HYDROCODONE-ACETAMINOPHEN 5-325 MG ORAL TABLET 1 tab by mouth every 6 hours as needed for pain HYDROCODONE-ACETAMINOPHEN 97828712519 No Longer Active Tu Landeros MD Active OMEPRAZOLE 20 MG ORAL CAPSULE DELAYED RELEASE 1 po q a.m. OMEPRAZOLE 07305132364 Active Fab Morales DO Active GABAPENTIN 100 MG ORAL CAPSULE 1 po bid GABAPENTIN 05922780249 No Longer Active Tu Landeros MD Active B-12 100 MCG ORAL TABLET Take one by mouth daily CYANOCOBALAMIN 16868880249 No Longer Active Tu Landeros MD Active BACTRIM DS 800-160 MG ORAL TABLET 1 bid x 14 day start 09-28-13 SULFAMETHOXAZOLE-TRIMETHOPRIM 99905585372 No Longer Active Tu Landeros MD Active CARVEDILOL 12.5 MG ORAL TABLET 1 po BID CARVEDILOL 36068703612 Active Tu Landeros MD Active TRILIPIX 135 MG ORAL CAPSULE DELAYED RELEASE 1 q hs CHOLINE FENOFIBRATE 41312801244 Active Tu Landeros MD Active FENOFIBRATE 145 MG ORAL TABLET 1 po qd FENOFIBRATE 57684357186 No Longer Active JASPREET Perez Active OMEPRAZOLE 20 MG ORAL TABLET DELAYED RELEASE 1 PO 30 MIN BEFORE 1ST MEAL 2010 OMEPRAZOLE 83444100630 No Longer Active JASPREET Perez Active SIMVASTATIN 40 MG ORAL TABLET Take one by mouth daily SIMVASTATIN 94371331252 No Longer Active JASPREET Perze Active VENLAFAXINE HCL 75 MG ORAL TABLET 1 po BID VENLAFAXINE HCL 06205282513 No Longer Active JASPREET Perez Active CIPRO 500 MG ORAL TABLET 1 tablet by mouth twice daily CIPROFLOXACIN HCL 14186731274 No Longer Active Tu Landeros MD Active VENLAFAXINE HCL 37.5 MG ORAL TABLET 1 po BID VENLAFAXINE HCL 68402041743 No Longer Active Suze VOGEL Active LAMISIL 250 MG ORAL TABLET 1 po qd TERBINAFINE HCL 98262285741 No Longer Active Tu Landeros MD Active LORTAB 5-500 MG ORAL TABLET 1/2 to 1 tablet by mouth every 4 hours as needed for pain HYDROCODONE-ACETAMINOPHEN 61665937039 No Longer Active Tu Landeros MD Active HYDROCODONE-ACETAMINOPHEN 5-500 MG ORAL TABLET take one po Q 4-6 hours prn HYDROCODONE-ACETAMINOPHEN 15909584560 No Longer Active Tu Landeros MD Active BACTRIM DS 800-160 MG ORAL TABLET 1 po BID x 7 days SULFAMETHOXAZOLE-TRIMETHOPRIM 57691373424 No Longer Active Tu Landeros MD Active VENLAFAXINE HCL 75 MG ORAL TABLET 1 po BID VENLAFAXINE HCL 00945441838 No Longer Active Elvira Cervantes MD PhD Active TRAMADOL HCL 50 MG ORAL TABLET 1 tablets every 6 hours as needed for pain TRAMADOL HCL 00322956815 No Longer Active Tu Landeros MD Active ACCU-CHEK FASTCLIX LANCETS Use to check bloodsugar three times daily as needed LANCETS 65450018259 No Longer Active Tu Landeros MD Active ACCU-CHEK KEYONA PLUS IN VITRO STRIP Use for testing bloodsugars three times daily as needed GLUCOSE BLOOD 53682903389 No Longer Active Tu Landeros MD Active ACCU-CHEK KEYONA PLUS w/Device KIT Use for testing bloodsugars three times daily as needed BLOOD GLUCOSE MONITORING SUPPL 46121506185 No Longer Active Tu Landeros MD Active SPIRONOLACTONE 25 MG ORAL TABLET 0.5 tablet by mouth daily 09/09 SPIRONOLACTONE 77325786956 No Longer Active Tu Landeros MD Active ALPRAZOLAM 0.5 MG ORAL TABLET 1 tab every 6hrs as needed ALPRAZOLAM 05283047044 No Longer Active Tu Landeros MD Active AUGMENTIN 875-125 MG ORAL TABLET 1 tab by mouth twice daily with food AMOXICILLIN-POT CLAVULANATE 87968320537 No Longer Active Tu Landeros MD Active PREDNISONE 20 MG ORAL TABLET 2 tabs daily for 3 days, 1 tab daily for 3 days, 1/2 tab daily for 2 days PREDNISONE 95200165100 No Longer Active Tu Landeros MD Active XANAX 0.5 MG ORAL TABLET 1 tablet every 6 hrs prn ALPRAZOLAM 23718985460 No Longer Active Tu Landeros MD Active PREDNISONE 20 MG ORAL TABLET 2 tabs daily for 3 days, 1 tab daily for 3 days, 1/2 tab daily for 2 days PREDNISONE 41785636257 No Longer Active Tu Landeros MD Active TRIAMCINOLONE ACETONIDE 0.1 % EXTERNAL OINTMENT Apply to affected areas TID for up to 2 weeks TRIAMCINOLONE ACETONIDE 97417785451 No Longer Active Tu Landeros MD Active LORTAB 5-500 MG ORAL TABLET 1/2 to 1 tablet by mouth every 4 hours as needed for pain HYDROCODONE-ACETAMINOPHEN 91949427872 No Longer Active Tu Landeros MD Active MULTIVITAMINS TABS Take one by mouth daily MULTIPLE VITAMIN 26708052809 No Longer Active Tu Landeros MD Active MELATONIN 5 MG ORAL TABLET Take one by mouth daily MELATONIN 96246597184 No Longer Active Tu Landeros MD Active SOMA 350 MG ORAL TABLET 1 po q 6 hours prn spasm CARISOPRODOL 59306514104 No Longer Active Tu Landeros MD Active MECLIZINE HCL 25 MG ORAL TABLET CHEWABLE 1 four times a day as needed for dizziness MECLIZINE HCL 10127256688 No Longer Active Fab Morales DO Active ANGEL BREEZE 2 TEST IN VITRO DISK test tid prn GLUCOSE BLOOD 16268939839 No Longer Active Negra Scott RN Active REGLAN 10 MG ORAL TABLET 1 po TID PRN Nausea METOCLOPRAMIDE HCL 53471505772 No Longer Active Tu Landeros MD Active METFORMIN HCL 500 MG ORAL TABLET 1 PO BID METFORMIN HCL 16037038970 No Longer Active Tu Landeros MD Active AMBIEN 10 MG ORAL TABLET 1 tab by mouth at bedtime as needed for sleep 06/10 ZOLPIDEM TARTRATE 46994589165 No Longer Active Tu Landeros MD Active FLUOXETINE HCL 40 MG ORAL CAPSULE 1 po q day FLUOXETINE HCL 40336301799 No Longer Active Mayra [place] Active TRILIPIX 135 MG ORAL CAPSULE DELAYED RELEASE 1 po qd CHOLINE FENOFIBRATE 68626688888 No Longer Active Tu Landeros MD Active AMBIEN 10 MG ORAL TABLET 1 tab by mouth at bedtime as needed for sleep 06/10 AMBIEN 10 MG ORAL TABLET 534057 ZOLPIDEM TARTRATE Inactive METFORMIN HCL 500 MG ORAL TABLET 1 PO BID METFORMIN HCL 500 MG ORAL TABLET 455450 METFORMIN HCL Inactive REGLAN 10 MG ORAL TABLET 1 po TID PRN Nausea REGLAN 10 MG ORAL TABLET 929358 METOCLOPRAMIDE HCL Inactive MECLIZINE HCL 25 MG ORAL TABLET CHEWABLE 1 four times a day as needed for dizziness MECLIZINE HCL 25 MG ORAL TABLET CHEWABLE 723522 MECLIZINE HCL Inactive SOMA 350 MG ORAL TABLET 1 po q 6 hours prn spasm SOMA 350 MG ORAL TABLET 769690 CARISOPRODOL Inactive MELATONIN 5 MG ORAL TABLET Take one by mouth daily MELATONIN 5 MG ORAL TABLET 202854 MELATONIN Inactive MULTIVITAMINS TABS Take one by mouth daily MULTIVITAMINS TABS MULTIPLE VITAMIN Inactive LORTAB 5-500 MG ORAL TABLET 1/2 to 1 tablet by mouth every 4 hours as needed for pain LORTAB 5-500 MG ORAL TABLET 210798 HYDROCODONE-ACETAMINOPHEN Inactive XANAX 0.5 MG ORAL TABLET 1 tablet every 6 hrs prn XANAX 0.5 MG ORAL TABLET 895766 ALPRAZOLAM Inactive AUGMENTIN 875-125 MG ORAL TABLET 1 tab by mouth twice daily with food AUGMENTIN 875-125 MG ORAL TABLET 556545 AMOXICILLIN-POT CLAVULANATE Inactive ALPRAZOLAM 0.5 MG ORAL TABLET 1 tab every 6hrs as needed ALPRAZOLAM 0.5 MG ORAL TABLET 783060 ALPRAZOLAM Inactive SPIRONOLACTONE 25 MG ORAL TABLET 0.5 tablet by mouth daily 09/09 SPIRONOLACTONE 25 MG ORAL TABLET 751974 SPIRONOLACTONE Inactive ACCU-CHEK KEYONA PLUS w/Device KIT [...] times daily as needed ACCU-CHEK FASTCLIX LANCETS 93579499572 LANCETS Inactive TRAMADOL HCL 50 MG ORAL TABLET 1 tablets every 6 hours as needed for pain TRAMADOL HCL 50 MG ORAL TABLET 574049 TRAMADOL HCL Inactive VENLAFAXINE HCL 75 MG ORAL TABLET 1 po BID VENLAFAXINE HCL 75 MG ORAL TABLET 795605 VENLAFAXINE HCL Inactive HYDROCODONE-ACETAMINOPHEN 5-500 MG ORAL TABLET take one po Q 4-6 hours prn HYDROCODONE-ACETAMINOPHEN 5-500 MG ORAL TABLET 882916 HYDROCODONE-ACETAMINOPHEN Inactive LORTAB 5-500 MG ORAL TABLET 1/2 to 1 tablet by mouth every 4 hours as needed for pain LORTAB 5-500 MG ORAL TABLET 115757 HYDROCODONE-ACETAMINOPHEN Inactive LAMISIL 250 MG ORAL TABLET 1 po qd LAMISIL 250 MG ORAL TABLET 745691 TERBINAFINE HCL Inactive VENLAFAXINE HCL 37.5 MG ORAL TABLET 1 po BID VENLAFAXINE HCL 37.5 MG ORAL TABLET 802394 VENLAFAXINE HCL Inactive CIPRO 500 MG ORAL TABLET 1 tablet by mouth twice daily CIPRO 500 MG ORAL TABLET 067803 CIPROFLOXACIN HCL Inactive VENLAFAXINE HCL 75 MG ORAL TABLET 1 po BID VENLAFAXINE HCL 75 MG ORAL TABLET 677374 VENLAFAXINE HCL Inactive SIMVASTATIN 40 MG ORAL TABLET Take one by mouth daily SIMVASTATIN 40 MG ORAL TABLET 527136 SIMVASTATIN Inactive OMEPRAZOLE 20 MG ORAL TABLET DELAYED RELEASE 1 PO 30 MIN BEFORE 1ST MEAL 2010 OMEPRAZOLE 20 MG ORAL TABLET DELAYED RELEASE 656907 OMEPRAZOLE Inactive FENOFIBRATE 145 MG ORAL TABLET 1 po qd FENOFIBRATE 145 MG ORAL TABLET 754841 FENOFIBRATE Inactive BACTRIM DS 800-160 MG ORAL TABLET 1 bid x 14 day start 09-28-13 BACTRIM DS 800-160 MG ORAL TABLET 000752 SULFAMETHOXAZOLE- TRIMETHOPRIM Inactive B-12 100 MCG ORAL TABLET Take one by mouth daily B-12 100 MCG ORAL TABLET CYANOCOBALAMIN Inactive GABAPENTIN 100 MG ORAL CAPSULE 1 po bid GABAPENTIN 100 MG ORAL CAPSULE 891544 GABAPENTIN Inactive HYDROCODONE-ACETAMINOPHEN 5-325 MG ORAL TABLET 1 tab by mouth every 6 hours as needed for pain HYDROCODONE-ACETAMINOPHEN 5-325 MG ORAL TABLET 530834 HYDROCODONE-ACETAMINOPHEN Inactive CIPRO 500 MG ORAL TABLET 1 bid x 14 days start 09-28-13 CIPRO 500 MG ORAL TABLET 737262 CIPROFLOXACIN HCL Inactive ALIGN 4 MG ORAL [...] SODIUM 50 MG ORAL TABLET DELAYED RELEASE 672323 DICLOFENAC SODIUM Inactive PREDNISONE 20 MG ORAL TABLET 2 tablets once daily for 2 days, then 1 tablet once daily for 2 days PREDNISONE 20 MG ORAL TABLET 378567 PREDNISONE Inactive TRUEDRAW LANCING DEVICE Test twice a day dx 250.0 TRUEDRAW LANCING DEVICE LANCET DEVICES Inactive TRUERESULT BLOOD GLUCOSE w/Device KIT test blood sugar twice daily dx 250.00 TRUERESULT BLOOD GLUCOSE w/Device KIT BLOOD GLUCOSE MONITORING SUPPL Inactive FLONASE 50 MCG/ACT NASAL SUSPENSION 1 spray each nostril twice daily until bottle empty FLONASE 50 MCG/ACT NASAL SUSPENSION 3499269 FLUTICASONE PROPIONATE Inactive VENTOLIN HFA 108 (90 Base) MCG/ACT INHALATION AEROSOL SOLUTION 1-2 puffs every 4 hours if needed for cough/congestion VENTOLIN HFA 108 (90 Base) MCG/ACT INHALATION AEROSOL SOLUTION ALBUTEROL SULFATE Inactive REQUIP 2 MG ORAL TABLET Take one tablet at bedtime prn REQUIP 2 MG ORAL TABLET 426470 ROPINIROLE HCL Inactive SUPER B COMPLEX/VITAMIN C ORAL TABLET 1 qd SUPER B COMPLEX/VITAMIN C ORAL TABLET 27834994089 B COMPLEX-C Inactive TRUEDRAW LANCING DEVICE test blood sugar twice daily dx: 250.00 TRUEDRAW LANCING DEVICE LANCET DEVICES Inactive TRUETEST TEST IN VITRO STRIP test blood sugar twice daily. DX 250.0 TRUETEST TEST IN VITRO STRIP GLUCOSE BLOOD Inactive CYCLOBENZAPRINE HCL 10 MG ORAL TABLET 1 po TID PRN Muscle Spasm CYCLOBENZAPRINE HCL 10 MG ORAL TABLET 996278 CYCLOBENZAPRINE HCL Inactive DICLOFENAC SODIUM 50 MG ORAL TABLET DELAYED RELEASE 1 po BID PRN Pain DICLOFENAC SODIUM 50 MG ORAL TABLET DELAYED RELEASE 073639 DICLOFENAC SODIUM Inactive TRIAMCINOLONE ACETONIDE 0.1 % EXTERNAL OINTMENT Apply to affected areas TID for up to 2 weeks TRIAMCINOLONE ACETONIDE 0.1 % EXTERNAL OINTMENT 7041858 TRIAMCINOLONE ACETONIDE Inactive PREDNISONE 20 MG ORAL TABLET 2 tabs daily for 3 days, 1 tab daily for 3 days, 1/2 tab daily for 2 days PREDNISONE 20 MG ORAL TABLET 338504 PREDNISONE Inactive PREDNISONE 20 MG ORAL TABLET 2 tabs daily for 3 days, 1 tab daily for 3 days, 1/2 tab daily for 2 days PREDNISONE 20 MG ORAL TABLET 367594 PREDNISONE Inactive BACTRIM DS 800-160 MG ORAL TABLET 1 po BID x 7 days BACTRIM DS 800-160 MG ORAL TABLET 208070 SULFAMETHOXAZOLE-TRIMETHOPRIM Inactive ZITHROMAX 250 MG ORAL TABLET 2 po today, then 1 po q days 2-5 ZITHROMAX 250 MG ORAL TABLET 205427 AZITHROMYCIN Inactive Advance Directives Directive Description Start Date DISCUSSED WITH PATIENT -- NO DECISION MADE Immunizations Vaccine Administration Date Value Standard Description Seasonal influenza vaccine, injectable, containing preservative, for > 3 years old (Afluria, FluLaval, Fluzone, Fluvirin, Fluarix, Agriflu(>=18 yo)) Fluzone (>3 yrs.) [[id number]] Influenza, seasonal, injectable influenza immunization (Flu Vax) has been administered 02/22/2012 influenza virus vaccine, unspecified formulation Seasonal influenza vaccine, injectable, containing preservative, for > 3 years old (Afluria, FluLaval, Fluzone, Fluvirin, Fluarix, Agriflu(>=18 yo)) Fluzone (>3 yrs.) [[id number]] Influenza, seasonal, injectable Vital Signs Date Name [...] ... - Chemistry sodium, serum 141 mmol/L 775-355 3285/01/16 carbon dioxide, venous blood 28.3 mmol/L 21.0-32.0 [...] 6.7 % 4.3-6.0 cholesterol, serum 106 mg/dL 393-899 5616/01/16 triglyceride, serum, fasting 173 mg/dL 30-200 HDL [...] A1c - Chemistry cholesterol, serum 135 mg/dL 592-173 3013/05/17 HDL cholesterol, serum 41 mg/dL > OR=46 triglyceride, serum, fasting 206 mg/dL <150 LDL cholesterol, serum 53 MG/DL (CALC) mg/dL <130 cholesterol/HDL ratio, serum 3.3 (calc) < OR=5.0 Lab Report: HGBA1C - Chemistry hemoglobin A1C, blood, as % of total hemoglobin 6.5 % 4.3-6.0 Encounters Code Encounter Date Provider Facility CPT-25254 Level 3 Est. Patient 14:20:36 CDT Tu Landeros MD [facility] CPT-67173 Level 4 Est. Patient 14:28:34 CDT Tu Landeros MD [facility] CPT-19259 Level 3 Est. Patient 13:33:09 CDT Tu Landeros MD [facility] CPT-47940 Level 4 Est. Patient 14:29:21 CDT Tu Landeros MD [facility] CPT-32787 Level 4 Est. Patient 09:08:17 ADVERTISING INSERTER Tu Landeros MD [facility] CPT-69163 Level 4 Est. Patient 14:40:19 CDT Tu Landeros MD [facility] CPT-78715 Level 4 Est. Patient 14:06:04 ADVERTISING INSERTER Tu Landeros MD [facility] CPT-19538 Level 3 Est. Patient 14:05:18 ADVERTISING INSERTER Tu Landeros MD [facility] CPT-49006 Level 3 Est. Patient 10:06:54 ADVERTISING INSERTER Miranda Suresh APRN [facility] CPT-23959 Level 4 Est. Patient 13:50:18 ADVERTISING INSERTER Tu Landeros MD [facility] CPT-29106 Level 3 Est. Patient 10:30:04 CDT Tu Landeros MD [facility] CPT-31628 Level 4 Est. Patient 11:03:38 CDT Tu Landeros MD [facility] CPT-43400 Level 3 Est. Patient 10:20:44 CDT Fab Morales DO [facility] CPT-66655 Level 4 Est. Patient 14:38:57 CDT Tu Landeros MD [facility] CPT-61551 Level 4 Est. Patient 14:27:39 ADVERTISING INSERTER Tu Landeros MD [facility] CPT-53057 Level 4 Est. Patient 09:45:25 CDT Tu Landeros MD [facility] CPT-65958 Level 4 Est. Patient 09:05:20 ADVERTISING INSERTER Tu Landeros MD [facility] CPT-25794 Level 4 Est. Patient 14:09:06 CDT Tu Landeros MD [facility] CPT-92598 Level 3 Est. Patient 13:36:54 CDT Tu Landeros MD [facility] CPT-64910 Level 3 Est. Patient 08:59:14 CDT Tu Landeros MD [facility] CPT-41942 Level 3 Est. Patient 13:48:35 CDT Fab Morales DO [facility] CPT-19504 Level 4 Est. Patient 10:05:48 CDT Tu Landeros MD [facility] CPT-97991 Level 3 Est. Patient 13:38:42 CDT Marek BANKS [facility] CPT-24067 Level 5 Est. Patient 08:08:39 CDT Jerrica FRANCIS [facility] CPT-43558 Level 4 Est. Patient 14:23:38 CDT Tu Landeros MD [facility] CPT-91956 Level 3 Est. Patient 11:44:04 CDT Tu Landeros MD [facility] CPT-03736 Level 3 Est. Patient 11:03:20 ADVERTISING INSERTER Tu Landeros MD [facility] CPT-11604 Level 3 Est. Patient 11:03:14 ADVERTISING INSERTER Tu Landeros MD [facility] CPT-93911 Level 3 Est. Patient 12:42:49 CDT Tu Landeros MD [facility] CPT-97027 Level 3 Est. Patient 11:52:06 CDT Tu Landeros MD [facility] CPT-87113 Level 3 Est. Patient 13:58:11 CDT Tu Landeros MD [facility] CPT-80884 Level 3 Est. Patient 17:50:07 CDT Fab Morales DO [facility] CPT-58510 Level 3 Est. Patient 12:06:29 CDT Elvira Cervantes MD PhD [facility] CPT-32315 Level 3 Est. Patient 15:50:32 CDT Tu Landeros MD [facility] CPT-19776 Level 4 Est. Patient 16:08:29 CDT Tu Landeros MD [facility] CPT-89203 Level 3 Est. Patient 16:04:19 CDT Tu Landeros MD [facility] CPT-63397 Level 3 Est. Patient 11:22:30 ADVERTISING INSERTER Tu Landeros MD [facility] CPT-80164 Level 4 Est. Patient 16:24:02 ADVERTISING INSERTER Tu Landeros MD [facility] CPT-35552 Level 3 Est. Patient 17:21:23 ADVERTISING INSERTER Tu Landeros MD [facility] Procedures Code Procedure Name Date Entry Date Standard Description CPT-55158 Shoulder, right, comp min 2V - XRAY USE ONLY 13:50:22 CDT CPT-G0009 Administration of Pneumococcal Vaccine 15:08:26 CDT CPT-80558 Prevnar 13 Intramuscular Suspension 15:08:26 CDT 10/08 CPT-G0439 Subsequent Annual Wellness Exam 14:29:22 CDT CPT-41536 Venipuncture Draw Fee 13:15:35 CDT CPT-13379 Magnesium - LAB USE ONLY 11:14:20 ADVERTISING INSERTER CPT-97023 Lipid - LAB USE ONLY 11:14:20 ADVERTISING INSERTER CPT-48250 HGBA1C - LAB USE ONLY 11:14:20 ADVERTISING INSERTER CPT-23790 CMP - LAB USE ONLY 11:14:19 ADVERTISING INSERTER CPT-75715 CBC - LAB USE ONLY 11:14:19 ADVERTISING INSERTER CPT-23188 Venipuncture Draw Fee 11:14:18 ADVERTISING INSERTER CPT-62646 First Vx - Ix admin for Medicare patients 16:46:52 CDT CPT-88680 Fluzone Preservative Free Intramuscular Suspension 16:46 :51 CDT CPT-27504 CBC - LAB USE ONLY 17:14:46 CDT CPT-73524 HGBA1C - LAB USE ONLY 17:14:46 CDT CPT-44330 Venipuncture Draw Fee 17:14:46 CDT CPT-G0438 Initial Annual Wellness Exam 14:13:04 CDT CPT-95897 Breathing Tx 10:06:54 ADVERTISING INSERTER CPT-76315 Postop F/U Visit 10:02:45 CDT CPT-LR Lesion Removal 09:02:56 CDT CPT-JTINJ Asp/Joint Injection 15:51:27 ADVERTISING INSERTER CPT-OV Office Visit 15:52:02 ADVERTISING INSERTER CPT-OV Office Visit 15:45:11 CDT CPT-000 Give Zostavax 14:09:06 CDT CPT-14675 Administration single or combination vaccine inc oral 15 :19:04 CDT CPT-69330 Zoster Vaccine (Zostavax) 15:19:04 CDT CPT-73604 Administration single or combination vaccine inc oral 20 :51:03 CDT CPT-95527 Influenza split virus > age 3 20:51:03 CDT CPT-39138 No Charge Offi Visit 14:52:03 CDT CPT-OV Office Visit 14:57:43 CDT CPT-OV Office Visit 15:22:32 CDT CPT-03602 Administration single or combination vaccine inc oral 11 :33:15 CDT CPT-01384 Influenza split virus > age 3 11:33:15 CDT
--- OUTSIDE RECORDS SUMMARY | 2018-04-25 14:34 | XMS REPORT | Clinical Summary ---
Author Author Admin, SACHI Organization [employer] Address Unknown Phone Unavailable Allergies, Adverse Reactions, [...] NONSPECIFIC SKIN ERUPTION ICD-782.1 Tessa Landeros MD CARPAL TUNNEL SYNDROME ICD-354.0 Inactive Tu Landeros MD ARTHRITIS ICD-716.90 Inactive Tu Landeros MD KNEE PAIN ICD-719.46 Inactive Tu Landeros MD CONTUSION OF UNSPECIFIED SITE ICD-924.9 Tessa Landeros MD LOCALIZED SUPERFICIAL SWELLING MASS OR LUMP ICD-782.2 Inactive Tu Landeros MD PRESSURE ULCER UNSPECIFIED SITE ICD-707.00 Tessa Landeros MD FATIGUE ICD-780.79 Inactive Tu Landeros MD 2012 Upper respiratory infection, viral ICD-465.9 Tessa yS MD Open wound of other and [...] further specified ICD- 369.20 Tessa Landeros MD ONYCHOMYCOSIS ICD-110.1 Tessa Landeros MD Open wound of abdominal wall, anterior, complicated ICD-879.3 Tessa Landeros MD Medication List Medication Instructions Start Date Stop Date Generic Name NDC Status Provider Patient Instruction INVOKANA 100 MG ORAL TABS 1 po qd CANAGLIFLOZIN 39775371571 Active Tu Landeros MD Active GLIPIZIDE 5 MG ORAL TABS 1 po qd GLIPIZIDE 29069933649 No Longer Active Tu Landeros MD Active VENLAFAXINE HCL 75 MG ORAL TABS 1 po BID VENLAFAXINE HCL 80871059199 Active Tu Landeros MD Active GLIMEPIRIDE 1 MG ORAL TABS 1 po qd GLIMEPIRIDE 74669154948 No Longer Active Tu Landeros MD Active TRUE METRIX BLOOD GLUCOSE TEST INVITR STRP Test blood sugar BID Dx: E11.9 GLUCOSE BLOOD 56966012293 Active Tu Landeros MD Active TRUE METRIX AIR GLUCOSE METER W/DEVICE KIT Test blood glucose BID Dx: E11.9 BLOOD GLUCOSE MONITORING SUPPL 08726725887 Active Tu Landeros MD Active TRUETEST TEST INVITR STRP test blood sugar twice daily. DX 250.0 GLUCOSE BLOOD 94504806478 No Longer Active Mirna Stanley LPN Active TRUEDRAW LANCING DEVICE MISC test blood sugar twice daily dx: 250.00 LANCET DEVICES 97267347160 No Longer Active Mirna Stanley LPN Active ENALAPRIL MALEATE 20 MG TABS 2 po qd ENALAPRIL MALEATE 67433444970 Active Tu Landeros MD Active SUPER B COMPLEX/VITAMIN C TABS 1 qd B COMPLEX-C 04540761530 No Longer Active Tu Landeros MD Active ASPIRIN EC 81 MG ORAL TBEC 1 po qd ASPIRIN 47518825733 Active Tu Landeros MD Active GLUCOSAMINE 500 MG TABS 2 po qd GLUCOSAMINE Active Tu Landeros MD Active SIMVASTATIN 40 MG TABS 0.5 po qHS SIMVASTATIN 27803297948 Active Tu Landeros MD Active FISH OIL 1000 MG CAPS 1 po qd OMEGA-3 FATTY ACIDS 34878757332 Active Tu Landeros MD Active METFORMIN HCL 1000 MG TABS 1 po BID METFORMIN HCL 06712757149 Active Tu Landeros MD Active KLOR-CON 10 10 MEQ CR-TABS 2 po qd POTASSIUM CHLORIDE 50537214973 Active Tu Landeros MD Active FUROSEMIDE 40 MG TAB 1 po qd FUROSEMIDE 24196223612 Active Tu Landeros MD Active REQUIP 2 MG ORAL TABS 1 po qHS PRN Restless legs ROPINIROLE HCL 06368636979 Active Tu Landeros MD Active GABAPENTIN 100 MG CAPS 1 po BID GABAPENTIN 67733716986 Active Tu Landeros MD Active REQUIP 2 MG TABS Take one tablet at bedtime prn ROPINIROLE HCL 54705293112 No Longer Active Tu Landeros MD Active VENTOLIN HFA 108 (90 BASE) MCG/ACT AERS 1-2 puffs every 4 hours if needed for cough/congestion ALBUTEROL SULFATE 19277128773 No Longer Active Ambika Aden APRN Active ZITHROMAX 250 MG TAB 2 po today, then 1 po q days 2-5 AZITHROMYCIN 17229725383 No Longer Active Miranda Suresh APRN Active FLONASE 50 MCG/ACT SUSP 1 spray each nostril twice daily until bottle empty FLUTICASONE PROPIONATE 61080391350 No Longer Active Tu Landeros MD Active COLACE 100 MG CAP 1 po BID PRN Constipation DOCUSATE SODIUM 00730745796 Active Tu Landeros MD Active TRUERESULT BLOOD GLUCOSE W/DEVICE KIT test blood sugar twice daily dx 250.00 BLOOD GLUCOSE MONITORING SUPPL 91671522853 No Longer Active Tu Landeros MD Active TRUEDRAW LANCING DEVICE MISC Test twice a day dx 250.0 LANCET DEVICES 96161324119 No Longer Active Tu aLnderos MD Active PREDNISONE 20 MG TAB 2 tablets once daily for 2 days, then 1 tablet once daily for 2 days PREDNISONE 83874650252 No Longer Active Tu Landeros MD Active DICLOFENAC SODIUM 50 MG TBEC 1 tablet by mouth three times a day as needed DICLOFENAC SODIUM 19142784206 No Longer Active Fab Morales DO Active EMBRACE BLOOD GLUCOSE TEST STRP test blood sugar twice daily DX 250.0 2014 GLUCOSE BLOOD 36568165580 No Longer Active Tu Landeros MD Active TRUETEST TEST STRP test blood sugar three times daily dx: 250.00 GLUCOSE BLOOD 34292233099 No Longer Active Suze VOGEL Active TRUERESULT BLOOD GLUCOSE W/DEVICE KIT use to test blood sugar tid dx: 250.00 BLOOD GLUCOSE MONITORING SUPPL 92587036972 No Longer Active Suze Nicole RMA Active ALIGN 4 MG CAPS 1 tid PROBIOTIC PRODUCT 55359970420 No Longer Active Shaun Sy MD Active CIPRO 500 MG TABS 1 bid x 14 days start 09-28-13 CIPROFLOXACIN HCL 48475295680 No Longer Active Shaun Sy MD Active TRAMADOL HCL 50 MG TABS 1-2 tablets every 6 hours as needed for pain TRAMADOL HCL 88866576127 Active Tu Landeros MD Active HYDROCODONE-ACETAMINOPHEN 5-325 MG TABS 1 tab by mouth every 6 hours as needed for pain HYDROCODONE-ACETAMINOPHEN 64616383448 No Longer Active Tu Landeros MD Active OMEPRAZOLE 20 MG CPDR 1 po q a.m. OMEPRAZOLE 11444446884 Active Lesli Kellogg APRN Active GABAPENTIN 100 MG CAPS 1 po bid GABAPENTIN 51319061617 No Longer Active Tu Landeros MD Active B-12 100 MCG TABS Take one by mouth daily CYANOCOBALAMIN 26908219004 No Longer Active Tu Landeros MD Active BACTRIM DS 800-160 MG TABS 1 bid x 14 day start 09-28-13 SULFAMETHOXAZOLE-TRIMETHOPRIM 27931906738 No Longer Active Tu Landeros MD Active CARVEDILOL 12.5 MG TABS 1 po BID CARVEDILOL 49826973073 Active Tu Landeros MD Active TRILIPIX 135 MG CPDR 1 q hs CHOLINE FENOFIBRATE 22952103933 Active Tu Landeros MD Active FENOFIBRATE 145 MG TABS 1 po qd FENOFIBRATE 94429776684 No Longer Active JASPREET Perez Active OMEPRAZOLE 20 MG TBEC 1 PO 30 MIN BEFORE 1ST MEAL OMEPRAZOLE 31213540712 No Longer Active JASPREET Perez Active SIMVASTATIN 40 MG TABS Take one by mouth daily SIMVASTATIN 22819625326 No Longer Active Gustavo NormaNURYSCandido Active VENLAFAXINE HCL 75 MG TABS 1 po BID VENLAFAXINE HCL 41370854005 No Longer Active Gustavo Townsend RMA Active CIPRO 500 MG TAB 1 tablet by mouth twice daily CIPROFLOXACIN HCL 16019901955 No Longer Active Tu Landeros MD Active VENLAFAXINE HCL 37.5 MG TABS 1 po BID VENLAFAXINE HCL 81063462437 No Longer Active Suze Corey RMA Active LAMISIL 250 MG TAB 1 po qd TERBINAFINE HCL 89662167394 No Longer Active Tu Landeros MD Active LORTAB 5 5-500 MG TABS 1/2 to 1 tablet by mouth every 4 hours as needed for pain HYDROCODONE-ACETAMINOPHEN 88439840352 No Longer Active Tu Landeros MD Active HYDROCODONE-ACETAMINOPHEN 5-500 MG TABS take one po Q 4-6 hours prn HYDROCODONE-ACETAMINOPHEN 88579951818 No Longer Active Tu Landeros MD Active BACTRIM DS 800-160 MG TABS 1 po BID x 7 days SULFAMETHOXAZOLE-TRIMETHOPRIM 30404519342 No Longer Active Tu Landeros MD Active VENLAFAXINE HCL 75 MG TABS 1 po BID VENLAFAXINE HCL 61597570349 No Longer Active Elvira Cervantes MD PhD Active TRAMADOL HCL 50 MG TABS 1 tablets every 6 hours as needed for pain TRAMADOL HCL 90362305061 No Longer Active Tu Landeros MD Active ACCU-CHEK FASTCLIX LANCETS MISC Use to check bloodsugar three times daily as needed LANCETS 18124189064 No Longer Active Tu Landeros MD Active ACCU-CHEK KEYONA PLUS STRP Use for testing bloodsugars three times daily as needed GLUCOSE BLOOD 59563708191 No Longer Active Tu Landeros MD Active ACCU-CHEK KEYONA PLUS W/DEVICE KIT Use for testing bloodsugars three times daily as needed BLOOD GLUCOSE MONITORING SUPPL 32193753808 No Longer Active Tu Landeros MD Active SPIRONOLACTONE 25 MG TAB 0.5 tablet by mouth daily SPIRONOLACTONE 79828377096 No Longer Active Tu Landeros MD Active ALPRAZOLAM 0.5 MG TABS 1 tab every 6hrs as needed ALPRAZOLAM 36426014580 No Longer Active Tu Landeros MD Active AUGMENTIN 875-125 MG TAB 1 tab by mouth twice daily with food AMOXICILLIN-POT CLAVULANATE 31714475244 No Longer Active Tu Landeros MD Active PREDNISONE 20 MG TAB 2 tabs daily for 3 days, 1 tab daily for 3 days, 1/2 tab daily for 2 days PREDNISONE 89891224727 No Longer Active Tu Landeros MD Active XANAX 0.5 MG TABS 1 tablet every 6 hrs prn ALPRAZOLAM 34105790621 No Longer Active Tu Landeros MD Active PREDNISONE 20 MG TAB 2 tabs daily for 3 days, 1 tab daily for 3 days, 1/2 tab daily for 2 days PREDNISONE 89711187698 No Longer Active Tu Landeros MD Active TRIAMCINOLONE ACETONIDE 0.1 % OINT Apply to affected areas TID for up to 2 weeks TRIAMCINOLONE ACETONIDE 56229035006 No Longer Active Tu Landeros MD Active LORTAB 5 5-500 MG TABS 1/2 to 1 tablet by mouth every 4 hours as needed for pain HYDROCODONE-ACETAMINOPHEN 95745065329 No Longer Active Tu Landeros MD Active MULTIVITAMINS TABS Take one by mouth daily MULTIPLE VITAMIN 97268578584 No Longer Active Tu Landeros MD Active MELATONIN 5 MG TABS Take one by mouth daily MELATONIN 90552878857 No Longer Active Tu Landeros MD Active SOMA 350 MG TAB 1 po q 6 hours prn spasm CARISOPRODOL 60000845001 No Longer Active Tu Landeros MD Active MECLIZINE HCL 25 MG CHEW TAB 1 four times a day as needed for dizziness 08/05 MECLIZINE HCL 01053909319 No Longer Active Fab Morales DO Active ANGEL BREEZE 2 TEST DISK test tid prn GLUCOSE BLOOD 81236572522 No Longer Active Negra Scott RN Active REGLAN 10 MG TAB 1 po TID PRN Nausea METOCLOPRAMIDE HCL 66619678291 No Longer Active Tu Landeros MD Active METFORMIN HCL 500 MG TABS 1 PO BID METFORMIN HCL 23907466262 No Longer Active Tu Landeros MD Active AMBIEN 10 MG TAB 1 tab by mouth at bedtime as needed for sleep ZOLPIDEM TARTRATE 56781254367 No Longer Active Tu Landeros MD Active FLUOXETINE HCL 40 MG CAPS 1 po q day FLUOXETINE HCL 22737676183 No Longer Active Mayra Indian Active TRILIPIX 135 MG CPDR 1 po qd CHOLINE FENOFIBRATE 75952678775 No Longer Active Tu Landeros MD Active AMBIEN 10 MG TAB 1 tab by mouth at bedtime as needed for sleep AMBIEN 10 MG TAB 731117 ZOLPIDEM TARTRATE Inactive METFORMIN HCL 500 MG TABS 1 PO BID METFORMIN HCL 500 MG TABS 764833 METFORMIN HCL Inactive REGLAN 10 MG TAB 1 po TID PRN Nausea REGLAN 10 MG TAB 565248 METOCLOPRAMIDE HCL Inactive MECLIZINE HCL 25 MG CHEW TAB 1 four times a day as needed for dizziness 08/05 MECLIZINE HCL 25 MG CHEW TAB 163799 MECLIZINE HCL Inactive SOMA 350 MG TAB 1 po q 6 hours prn spasm SOMA 350 MG TAB 271401 CARISOPRODOL Inactive MELATONIN 5 MG TABS Take one by mouth daily MELATONIN 5 MG TABS 751663 MELATONIN Inactive MULTIVITAMINS TABS Take one by mouth daily MULTIVITAMINS TABS MULTIPLE VITAMIN Inactive LORTAB 5 5-500 MG TABS 1/2 to 1 tablet by mouth every 4 hours as needed for pain LORTAB 5 5-500 MG TABS HYDROCODONE- ACETAMINOPHEN Inactive XANAX 0.5 MG TABS 1 tablet every 6 hrs prn XANAX 0.5 MG TABS 688593 ALPRAZOLAM Inactive AUGMENTIN 875-125 MG TAB 1 tab by mouth twice daily with food AUGMENTIN 875-125 MG TAB 753774 AMOXICILLIN-POT CLAVULANATE Inactive ALPRAZOLAM 0.5 MG TABS 1 tab every 6hrs as needed ALPRAZOLAM 0.5 MG TABS 127251 ALPRAZOLAM Inactive SPIRONOLACTONE 25 MG TAB 0.5 tablet by mouth daily SPIRONOLACTONE 25 MG TAB 107861 SPIRONOLACTONE Inactive ACCU-CHEK KEYONA PLUS W/DEVICE KIT Use for testing bloodsugars three times daily as needed ACCU-CHEK KEYONA PLUS W/DEVICE KIT BLOOD GLUCOSE MONITORING SUPPL Inactive ACCU-CHEK KEYONA PLUS STRP Use for testing bloodsugars three times daily as needed ACCU-CHEK KEYONA PLUS STRP GLUCOSE BLOOD Inactive ACCU-CHEK FASTCLIX LANCETS MISC Use to check bloodsugar three times daily as needed ACCU-CHEK FASTCLIX LANCETS MISC 16021050765 LANCETS Inactive TRAMADOL HCL 50 MG TABS 1 tablets every 6 hours as needed for pain TRAMADOL HCL 50 MG TABS 902124 TRAMADOL HCL Inactive VENLAFAXINE HCL 75 MG TABS 1 po BID VENLAFAXINE HCL 75 MG TABS 526398 VENLAFAXINE HCL Inactive HYDROCODONE-ACETAMINOPHEN 5-500 MG TABS take one po Q 4-6 hours prn HYDROCODONE-ACETAMINOPHEN 5-500 MG TABS HYDROCODONE- ACETAMINOPHEN Inactive LORTAB 5 5-500 MG TABS 1/2 to 1 tablet by mouth every 4 hours as needed for pain LORTAB 5 5-500 MG TABS HYDROCODONE- ACETAMINOPHEN Inactive LAMISIL 250 MG TAB 1 po qd LAMISIL 250 MG TAB 656305 TERBINAFINE HCL Inactive VENLAFAXINE HCL 37.5 MG TABS 1 po BID VENLAFAXINE HCL 37.5 MG TABS 712149 VENLAFAXINE HCL Inactive CIPRO 500 MG TAB 1 tablet by mouth twice daily CIPRO 500 MG TAB 151413 CIPROFLOXACIN HCL Inactive VENLAFAXINE HCL 75 MG TABS 1 po BID VENLAFAXINE HCL 75 MG TABS 277138 VENLAFAXINE HCL Inactive SIMVASTATIN 40 MG TABS Take one by mouth daily SIMVASTATIN 40 MG TABS 866354 SIMVASTATIN Inactive OMEPRAZOLE 20 MG TBEC 1 PO 30 MIN BEFORE 1ST MEAL OMEPRAZOLE 20 MG TBEC 121415 OMEPRAZOLE Inactive FENOFIBRATE 145 MG TABS 1 po qd FENOFIBRATE 145 MG TABS 308662 FENOFIBRATE Inactive BACTRIM DS 800-160 MG TABS 1 bid x 14 day start 09-28-13 BACTRIM DS 800-160 MG TABS 663640 SULFAMETHOXAZOLE-TRIMETHOPRIM Inactive B-12 100 MCG TABS Take one by mouth daily B-12 100 MCG TABS CYANOCOBALAMIN Inactive GABAPENTIN 100 MG CAPS 1 po bid GABAPENTIN 100 MG CAPS 509758 GABAPENTIN Inactive HYDROCODONE-ACETAMINOPHEN 5-325 MG TABS 1 tab by mouth every 6 hours as needed for pain HYDROCODONE-ACETAMINOPHEN 5-325 MG TABS 089436 HYDROCODONE-ACETAMINOPHEN Inactive CIPRO 500 MG TABS 1 bid x 14 days start 09-28-13 CIPRO 500 MG TABS 081061 CIPROFLOXACIN HCL Inactive ALIGN 4 MG CAPS [...] as needed DICLOFENAC SODIUM 50 MG TBEC 859485 DICLOFENAC SODIUM Inactive PREDNISONE 20 MG TAB 2 tablets once daily for 2 days, then 1 tablet once daily for 2 days PREDNISONE 20 MG TAB 071238 PREDNISONE Inactive TRUEDRAW LANCING DEVICE MISC Test twice a day dx 250.0 TRUEDRAW LANCING DEVICE MISC LANCET DEVICES Inactive TRUERESULT BLOOD GLUCOSE W/DEVICE KIT test blood sugar twice daily dx 250.00 TRUERESULT BLOOD GLUCOSE W/DEVICE KIT BLOOD GLUCOSE MONITORING SUPPL Inactive FLONASE 50 MCG/ACT SUSP 1 spray each nostril twice daily until bottle empty FLONASE 50 MCG/ACT SUSP 4222417 FLUTICASONE PROPIONATE Inactive VENTOLIN HFA 108 (90 BASE) MCG/ACT AERS 1-2 puffs every 4 hours if needed for cough/congestion VENTOLIN HFA 108 (90 BASE) MCG/ACT AERS ALBUTEROL SULFATE Inactive REQUIP 2 MG TABS Take one tablet at bedtime prn REQUIP 2 MG TABS 804534 ROPINIROLE HCL Inactive SUPER B COMPLEX/VITAMIN C TABS 1 qd SUPER B COMPLEX/ VITAMIN C TABS 13820122356 B COMPLEX-C Inactive TRUEDRAW LANCING DEVICE MISC test blood sugar twice daily dx: 250.00 TRUEDRAW LANCING DEVICE MISC LANCET DEVICES Inactive TRUETEST TEST INVITR STRP test blood sugar twice daily. DX 250.0 TRUETEST TEST INVITR STRP GLUCOSE BLOOD Inactive TRIAMCINOLONE ACETONIDE 0.1 % OINT Apply to affected areas TID for up to 2 weeks TRIAMCINOLONE ACETONIDE 0.1 % OINT 8341985 TRIAMCINOLONE ACETONIDE Inactive PREDNISONE 20 MG TAB 2 tabs daily for 3 days, 1 tab daily for 3 days, 1/2 tab daily for 2 days PREDNISONE 20 MG TAB 593624 PREDNISONE Inactive PREDNISONE 20 MG TAB 2 tabs daily for 3 days, 1 tab daily for 3 days, 1/2 tab daily for 2 days PREDNISONE 20 MG TAB 168017 PREDNISONE Inactive BACTRIM DS 800-160 MG TABS 1 po BID x 7 days BACTRIM DS 800-160 MG TABS 729544 SULFAMETHOXAZOLE-TRIMETHOPRIM Inactive ZITHROMAX 250 MG TAB 2 po today, then 1 po q days 2-5 ZITHROMAX 250 MG TAB 5304313 AZITHROMYCIN Inactive Advance Directives Directive Description Start Date DISCUSSED WITH PATIENT -- NO DECISION MADE Immunizations Vaccine Administration Date Value Standard Description Seasonal influenza vaccine, injectable, containing preservative, for > 3 years old (Afluria, FluLaval, Fluzone, Fluvirin, Fluarix, Agriflu(>=18 yo)) Fluzone (>3 yrs.) [[id number]] Influenza, seasonal, injectable influenza immunization (Flu Vax) has been administered 02/22/2012 influenza virus vaccine, unspecified formulation Seasonal influenza vaccine, injectable, containing preservative, for > 3 years old (Afluria, FluLaval, Fluzone, Fluvirin, Fluarix, Agriflu(>=18 yo)) Fluzone (>3 yrs.) [[id number]] Influenza, seasonal, injectable Vital Signs Date Name [...] Magnesium - Chemistry sodium, serum 143 mmol/L 256-879 5474/01/10 carbon dioxide, venous blood 28.0 mmol/L 21.0-32.0 potassium, serum 4.5 mmol/L 3.5-5.2 chloride, serum 104 mmol/L 98-107 blood glucose 158 mg/dL 65-110 urea nitrogen, blood 23 mg/dL 7-18 creatinine, serum 1.06 mg/dL 0.55-1.30 alanine aminotransferase (SGPT), serum 42 U/L 12-78 aspartate aminotransferase (SGOT), serum 32 U/L 15-37 calcium, serum 9.3 mg/dL 8.5-10.1 bilirubin, serum, total 0.20 mg/dL 0.00-1.00 cholesterol, serum 177 mg/dL 068-242 5584/01/10 triglyceride, serum, fasting 320 mg/dL 30-200 HDL cholesterol, serum 46 mg/dL 32-96 LDL cholesterol, serum 67 mg/dL 0-130 Lab Report: COMPREHENSIVE METABOLIC PANEL, LIPID PANEL, HEMOGLOBIN A1c - Chemistry cholesterol, serum 135 mg/dL 061-449 3933/05/17 HDL cholesterol, serum 41 mg/dL > OR=46 triglyceride, serum, fasting 206 mg/dL <150 LDL cholesterol, serum 53 MG/DL (CALC) mg/dL <130 cholesterol/HDL ratio, serum 3.3 (calc) < OR=5.0 Lab Report: HGBA1C - Chemistry hemoglobin A1C, blood, as % of total hemoglobin 7.4 % 4.3-6.0 sodium, serum 140 mmol/L 983-587 3306/09/07 potassium, serum 4.3 mmol/L 3.5-5.2 chloride, serum [...] <30 Encounters Code Encounter Date Provider Facility CPT-47922 Level 4 Est. Patient 14:29:21 CDT Tu Landeros MD [facility] CPT-86594 Level 4 Est. Patient 09:08:17 RESIDENTIAL HOUSEKEEPER Tu Landeros MD [facility] CPT-84046 Level 4 Est. Patient 14:40:19 CDT Tu Landeros MD [facility] CPT-35589 Level 4 Est. Patient 14:06:04 RESIDENTIAL HOUSEKEEPER Tu Landeros MD [facility] CPT-57121 Level 3 Est. Patient 14:05:18 RESIDENTIAL HOUSEKEEPER Tu Landeros MD [facility] CPT-08936 Level 3 Est. Patient 10:06:54 RESIDENTIAL HOUSEKEEPER Miranda Suresh APRN [facility] CPT-75275 Level 4 Est. Patient 13:50:18 RESIDENTIAL HOUSEKEEPER Tu Landeros MD [facility] CPT-84360 Level 3 Est. Patient 10:30:04 CDT Tu Landeros MD [facility] CPT-72585 Level 4 Est. Patient 11:03:38 CDT Tu Landeros MD [facility] CPT-48960 Level 3 Est. Patient 10:20:44 CDT Fab Morales DO [facility] CPT-47666 Level 4 Est. Patient 14:38:57 CDT Tu Landeros MD [facility] CPT-50004 Level 4 Est. Patient 14:27:39 RESIDENTIAL HOUSEKEEPER Tu Landeros MD [facility] CPT-32751 Level 4 Est. Patient 09:45:25 CDT Tu Landeros MD [facility] CPT-66615 Level 4 Est. Patient 09:05:20 RESIDENTIAL HOUSEKEEPER Tu Landeros MD [facility] CPT-90752 Level 4 Est. Patient 14:09:06 CDT Tu Landeros MD [facility] CPT-26355 Level 3 Est. Patient 13:36:54 CDT Tu Landeros MD [facility] CPT-17749 Level 3 Est. Patient 08:59:14 CDT Tu Landeros MD [facility] CPT-39332 Level 3 Est. Patient 13:48:35 CDT Fab Morales DO [facility] CPT-57695 Level 4 Est. Patient 10:05:48 CDT Tu Landeros MD [facility] CPT-80001 Level 3 Est. Patient 13:38:42 CDT Marek BANKS [facility] CPT-35782 Level 5 Est. Patient 08:08:39 CDT Jerrica FRANCIS [facility] CPT-78725 Level 4 Est. Patient 14:23:38 CDT Tu Landeros MD [facility] CPT-04664 Level 3 Est. Patient 11:44:04 CDT Tu Landeros MD [facility] CPT-38737 Level 3 Est. Patient 11:03:20 RESIDENTIAL HOUSEKEEPER Tu Landeros MD [facility] CPT-22133 Level 3 Est. Patient 11:03:14 RESIDENTIAL HOUSEKEEPER Tu Landeros MD [facility] CPT-42993 Level 3 Est. Patient 12:42:49 CDT Tu Landeros MD [facility] CPT-68844 Level 3 Est. Patient 11:52:06 CDT Tu Landeros MD [facility] CPT-77753 Level 3 Est. Patient 13:58:11 CDT Tu Landeros MD [facility] CPT-42496 Level 3 Est. Patient 17:50:07 CDT Fab Morales DO [facility] CPT-45793 Level 3 Est. Patient 12:06:29 CDT Elvira Cervantes MD, PhD [facility] CPT-41925 Level 3 Est. Patient 15:50:32 CDT Tu Landeros MD [facility] CPT-76633 Level 4 Est. Patient 16:08:29 CDT Tu Landeros MD [facility] CPT-75317 Level 3 Est. Patient 16:04:19 CDT Tu Landeros MD [facility] CPT-22222 Level 3 Est. Patient 11:22:30 RESIDENTIAL HOUSEKEEPER Tu Landeros MD [facility] CPT-49113 Level 4 Est. Patient 16:24:02 RESIDENTIAL HOUSEKEEPER Tu Landeros MD [facility] CPT-49100 Level 3 Est. Patient 17:21:23 RESIDENTIAL HOUSEKEEPER Tu Landeros MD [facility] Procedures Code Procedure Name Date Entry Date Standard Description CPT-G0009 Administration of Pneumococcal Vaccine 15:08:26 CDT CPT-78460 Prevnar 13 Intramuscular Suspension 15:08:26 CDT 10/08 CPT-G0439 [facility] Annual Wellness Exam 14:29:22 CDT CPT-19142 Venipuncture Draw Fee 13:15:35 CDT CPT-14339 Magnesium - LAB USE ONLY 11:14:20 RESIDENTIAL HOUSEKEEPER CPT-56178 Lipid - LAB USE ONLY 11:14:20 RESIDENTIAL HOUSEKEEPER CPT-92189 HGBA1C - LAB USE ONLY 11:14:20 RESIDENTIAL HOUSEKEEPER CPT-55028 CMP - LAB USE ONLY 11:14:19 RESIDENTIAL HOUSEKEEPER CPT-07459 CBC - LAB USE ONLY 11:14:19 RESIDENTIAL HOUSEKEEPER CPT-35275 Venipuncture Draw Fee 11:14:18 RESIDENTIAL HOUSEKEEPER CPT-80031 First Vx - Ix admin for Medicare patients 16:46:52 CDT CPT-47106 Fluzone Preservative Free Intramuscular Suspension 16:46 :51 CDT CPT-18643 CBC - LAB USE ONLY 17:14:46 CDT CPT-41110 HGBA1C - LAB USE ONLY 17:14:46 CDT CPT-10149 Venipuncture Draw Fee 17:14:46 CDT CPT-G0438 Initial Annual Wellness Exam 14:13:04 CDT CPT-08648 Breathing Tx 10:06:54 RESIDENTIAL HOUSEKEEPER CPT-15745 Postop F/U Visit 10:02:45 CDT CPT-LR Lesion Removal 09:02:56 CDT CPT-JTINJ Asp/Joint Injection 15:51:27 RESIDENTIAL HOUSEKEEPER CPT-OV Office Visit 15:52:02 RESIDENTIAL HOUSEKEEPER CPT-OV Office Visit 15:45:11 CDT CPT-000 Give Zostavax 14:09:06 CDT CPT-81203 Administration single or combination vaccine inc oral 15 :19:04 CDT CPT-46506 Zoster Vaccine (Zostavax) 15:19:04 CDT CPT-70108 Administration single or combination vaccine inc oral 20 :51:03 CDT CPT-06610 Influenza split virus > age 3 20:51:03 CDT CPT-01977 No Charge Offi Visit 14:52:03 CDT CPT-OV Office Visit 14:57:43 CDT CPT-OV Office Visit 15:22:32 CDT CPT-58311 Administration single or combination vaccine inc oral 11 :33:15 CDT CPT-69319 Influenza split virus > age 3 11:33:15 CDT
--- NOTE | 2018-04-25 14:35 | Coronary Angiography Report ---
Coronary Angiography Report DATE OF PROCEDURE: 04/25/18 INDICATION: Abnormal nuclear stress test. PREOPERATIVE DIAGNOSIS: Abnormal nuclear stress test. POSTOPERATIVE DIAGNOSIS: Patent epicardial coronary arteries. HISTORY: This is a 62-year-old lady with morbid obesity. Reoperative cardiovascular risk assessment for abdominal gastric sleeve surgery. Poor functional capacity with shortness of breath. Nuclear stress test showed evidence of anterior ischemia. Therefore, the patient was scheduled for coronary angiography. PROCEDURES PERFORMED: 1.Coronary angiography. 2.Left heart catheterization. 3. Aortic root injection. COMPLICATIONS: None. SPECIMENS: None. ESTIMATED BLOOD LOSS: 10 mL ANESTHESIA: Conscious sedation ANTICOAGULATION: None. CONTRAST: 68 mL. FLUOROSCOPY: 4.2 minutes. FLOUROSCOPY DOSE: 773 mgy. PROCEDURE DETAILS: The patient is a 62 female and was brought to the labels molder after informed consent was taken. All the risks and complications were explained in detail; this included the risk of bleeding, vascular damage, stroke , RI and even . The patient was draped and prepped in the usual sterile fashion. Access was gained in the right femoral artery with a 5 [place] sheath. Coronary angiography was performed with a JR4 catheter and a JL4 catheter. Left heart catheterization was performed with a JR4 catheter. Difficulty in finding the ostium of the RCA, therefore an aortic root injection was done with a JR4 catheter. FINDINGS: 1.Left main: Patent. 2.LAD: Patent. 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 No significant disease. 4.RCA: Small nondominant. 5.Left heart catheterization: LV pressure 118/10 mmHg. LVEDP 22 mmHg. Aortic pressure 112/58 mmHg. Normal LV function with no wall motion abnormalities. No gradient across the aortic valve. CONCLUSIONS: 1. Patent epicardial coronary arteries. 2. 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 Coronary CT angiography is recommended to rule out malignant course. 3. Patient is considered to be at low risk for perioperative major adverse coronary events undergoing an intermediate risk noncardiac surgery. There is no cardiac contraindication to the above-mentioned procedure. Juliette Green MD, FACP, FACC, [facility] Interventional Cardiology Eliane GREEN MD Apr 25, 2018 14:35
--- OUTSIDE RECORDS SUMMARY | 2018-04-25 14:35 | XMS REPORT | Clinical Summary ---
Author Author Admin, SACHI Clemons [facility] Address Unknown Phone Unavailable Allergies, Adverse [...] TABS 0.5 tab daily at bedtime SIMVASTATIN 18397116814 Active Tu Landeros MD Active TRUERESULT BLOOD GLUCOSE W/DEVICE KIT test blood sugar twice daily dx 250.00 BLOOD GLUCOSE MONITORING SUPPL 01182556826 No Longer Active Tu Landeros MD Active TRUEDRAW LANCING DEVICE MISC Test twice a day dx 250.0 LANCET DEVICES 40352928261 No Longer Active Tu Landeros MD Active PREDNISONE 20 MG TAB 2 tablets once daily for 2 days, then 1 tablet once daily for 2 days PREDNISONE 56772309837 No Longer Active Tu Landeros MD Active FLONASE 50 MCG/ACT SUSP 1 spray each nostril twice daily until bottle empty FLUTICASONE PROPIONATE 50599611439 Active Fab Morales DO Active DICLOFENAC SODIUM 50 MG TBEC 1 tablet by mouth three times a day as needed DICLOFENAC SODIUM 57341986496 No Longer Active Fab Morales DO Active METFORMIN HCL 850 MG TABS 1 tablet by mouth twice daily METFORMIN HCL 41926996106 Active Tu Landeros MD Active TRUEDRAW LANCING DEVICE MISC test blood sugar twice daily dx: 250.00 LANCET DEVICES 94369299636 Active Tu Landeros MD Active TRUETEST TEST INVITR STRP test blood sugar twice daily. DX 250.0 GLUCOSE BLOOD 00528420046 Active Tu Landeros MD Active EMBRACE BLOOD GLUCOSE TEST STRP test blood sugar twice daily DX 250.0 2014 GLUCOSE BLOOD 17206916769 No Longer Active Tu Landeros MD Active TRUETEST TEST STRP test blood sugar three times daily dx: 250.00 GLUCOSE BLOOD 08467050653 No Longer Active Suzebianca Nicole RMA Active TRUERESULT BLOOD GLUCOSE W/DEVICE KIT use to test blood sugar tid dx: 250.00 BLOOD GLUCOSE MONITORING SUPPL 70423933265 No Longer Active Suze Corey RMA Active ALIGN 4 MG CAPS 1 tid PROBIOTIC PRODUCT 70717137062 No Longer Active Shaun Sy MD Active CIPRO 500 MG TABS 1 bid x 14 days start 09-28-13 CIPROFLOXACIN HCL 09359702353 No Longer Active Shaun Sy MD Active TRAMADOL HCL 50 MG TABS 1-2 tablets every 6 hours as needed for pain TRAMADOL HCL 70519256370 Active Tu Landeros MD Active HYDROCODONE-ACETAMINOPHEN 5-325 MG TABS 1 tab by mouth every 6 hours as needed for pain HYDROCODONE-ACETAMINOPHEN 26192974945 No Longer Active Tu Landeros MD Active OMEPRAZOLE 20 MG CPDR 1 po q a.m. OMEPRAZOLE 85397220218 Active Elvira Cervantes MD PhD Active GABAPENTIN 100 MG CAPS 1 po bid GABAPENTIN 31497892708 No Longer Active Tu Landeros MD Active B-12 100 MCG TABS Take one by mouth daily CYANOCOBALAMIN 36018188592 No Longer Active Tu Landeros MD Active GABAPENTIN 100 MG CAPS by mouth twice a day GABAPENTIN 74731519076 Active Tu Landeros MD Active BACTRIM DS 800-160 MG TABS 1 bid x 14 day start 09-28-13 SULFAMETHOXAZOLE-TRIMETHOPRIM 30844492690 No Longer Active Tu Landeros MD Active CARVEDILOL 12.5 MG TABS 1 po BID CARVEDILOL 62463241370 Active Tu Landeros MD Active SUPER B COMPLEX/VITAMIN C TABS 1 qd B COMPLEX-C 06758247724 Active JASPREET Perez Active TRILIPIX 135 MG CPDR 1 q hs CHOLINE FENOFIBRATE 12492546622 Active Tu Landeros MD Active FENOFIBRATE 145 MG TABS 1 po qd FENOFIBRATE 61475588703 No Longer Active JASPREET Perez Active OMEPRAZOLE 20 MG TBEC 1 PO 30 MIN BEFORE 1ST MEAL OMEPRAZOLE 74215143884 No Longer Active JASPREET Perez Active SIMVASTATIN 40 MG TABS Take one by mouth daily SIMVASTATIN 15562391968 No Longer Active JASPREET Perez Active VENLAFAXINE HCL 37.5 MG TABS 1 bid VENLAFAXINE HCL 06270380731 Active Tu Landeros MD Active VENLAFAXINE HCL 75 MG TABS 1 po BID VENLAFAXINE HCL 63221608738 No Longer Active JASPREET Perez Active CIPRO 500 MG TAB 1 tablet by mouth twice daily CIPROFLOXACIN HCL 19926259524 No Longer Active Tu Landeros MD Active VENLAFAXINE HCL 37.5 MG TABS 1 po BID VENLAFAXINE HCL 26782640295 No Longer Active Suze Corey RMA Active CVS STOOL SOFTENER 100 MG CAPS 1 tab daily DOCUSATE SODIUM 73564954560 Active Tu Landeros MD Active LAMISIL 250 MG TAB 1 po qd TERBINAFINE HCL 79379054513 No Longer Active Tu Landeros MD Active LORTAB 5 5-500 MG TABS 1/2 to 1 tablet by mouth every 4 hours as needed for pain HYDROCODONE-ACETAMINOPHEN 75773146668 No Longer Active Tu Landeros MD Active ENALAPRIL MALEATE 20 MG TABS 1.5 po qd ENALAPRIL MALEATE 61424589557 Active Tu Landeros MD Active HYDROCODONE-ACETAMINOPHEN 5-500 MG TABS take one po Q 4-6 hours prn HYDROCODONE-ACETAMINOPHEN 92074938244 No Longer Active Tu Landeros MD Active BACTRIM DS 800-160 MG TABS 1 po BID x 7 days SULFAMETHOXAZOLE-TRIMETHOPRIM 75456012531 No Longer Active Tu Landeros MD Active VENLAFAXINE HCL 75 MG TABS 1 po BID VENLAFAXINE HCL 14299951241 No Longer Active Elvira Cervantes MD PhD Active TRAMADOL HCL 50 MG TABS 1 tablets every 6 hours as needed for pain TRAMADOL HCL 94313185769 No Longer Active Tu Landeros MD Active ACCU-CHEK FASTCLIX LANCETS MISC Use to check bloodsugar three times daily as needed LANCETS 07250733375 No Longer Active Tu Landeros MD Active ACCU-CHEK KEYONA PLUS STRP Use for testing bloodsugars three times daily as needed GLUCOSE BLOOD 85172798038 No Longer Active Tu Landeros MD Active ACCU-CHEK KEYONA PLUS W/DEVICE KIT Use for testing bloodsugars three times daily as needed BLOOD GLUCOSE MONITORING SUPPL 75228124575 No Longer Active Tu Landeros MD Active SPIRONOLACTONE 25 MG TAB 0.5 tablet by mouth daily SPIRONOLACTONE 07712228837 No Longer Active Tu Landeros MD Active ALPRAZOLAM 0.5 MG TABS 1 tab every 6hrs as needed ALPRAZOLAM 27173388094 No Longer Active Tu Landeros MD Active AUGMENTIN 875-125 MG TAB 1 tab by mouth twice daily with food AMOXICILLIN-POT CLAVULANATE 37337361664 No Longer Active Tu Landeros MD Active PREDNISONE 20 MG TAB 2 tabs daily for 3 days, 1 tab daily for 3 days, 1/2 tab daily for 2 days PREDNISONE 66277135192 No Longer Active Tu Landeros MD Active XANAX 0.5 MG TABS 1 tablet every 6 hrs prn ALPRAZOLAM 24241387328 No Longer Active Tu Landeros MD Active PREDNISONE 20 MG TAB 2 tabs daily for 3 days, 1 tab daily for 3 days, 1/2 tab daily for 2 days PREDNISONE 19998818426 No Longer Active Tu Landeros MD Active TRIAMCINOLONE ACETONIDE 0.1 % OINT Apply to affected areas TID for up to 2 weeks TRIAMCINOLONE ACETONIDE 67500377135 No Longer Active Tu Landeros MD Active LORTAB 5 5-500 MG TABS 1/2 to 1 tablet by mouth every 4 hours as needed for pain HYDROCODONE-ACETAMINOPHEN 77568099450 No Longer Active Tu Landeros MD Active MULTIVITAMINS TABS Take one by mouth daily MULTIPLE VITAMIN 02906900425 No Longer Active Tu Landeros MD Active MELATONIN 5 MG TABS Take one by mouth daily MELATONIN 48538042180 No Longer Active Tu Landeros MD Active SOMA 350 MG TAB 1 po q 6 hours prn spasm CARISOPRODOL 44660319859 No Longer Active Tu Landeros MD Active MECLIZINE HCL 25 MG CHEW TAB 1 four times a day as needed for dizziness 08/05 MECLIZINE HCL 30139797978 No Longer Active Fab Morales DO Active ANGEL NIKKOEZE 2 TEST DISK test tid prn GLUCOSE BLOOD 41857880561 No Longer Active Negra Scott RN Active REGLAN 10 MG TAB 1 po TID PRN [place] METOCLOPRAMIDE HCL 20539147550 No Longer Active Tu Landeros MD Active METFORMIN HCL 500 MG TABS 1 PO BID METFORMIN HCL 12898374456 No Longer Active Tu Landeros MD Active AMBIEN 10 MG TAB 1 tab by mouth at bedtime as needed for sleep ZOLPIDEM TARTRATE 74751077557 No Longer Active uT Landeros MD Active FLUOXETINE HCL 40 MG CAPS 1 po q day FLUOXETINE HCL 78845842813 No Longer Active Mayra [place] Active FISH OIL 1000 MG CAPS Take one by mouth daily OMEGA-3 FATTY ACIDS 15240363694 Active Tu Landeros MD Active GLUCOSAMINE 500 MG TABS Take 2 tab po qd GLUCOSAMINE 36671332794 Active Tu Landeros MD Active TRILIPIX 135 MG CPDR 1 po qd CHOLINE FENOFIBRATE 98258363271 No Longer Active Tu Landeros MD Active ASPIRIN 81 MG CHEW TAB 1 tablet by mouth daily ASPIRIN 24273143942 Active Tu Landeros MD Active FUROSEMIDE 40 MG TAB 1 tablet by mouth daily FUROSEMIDE 81868006652 Active Tu Landeros MD Active REQUIP 2 MG TABS Take one tablet at bedtime prn ROPINIROLE HCL 84142333711 Active Tu Landeros MD Active KLOR-CON 10 10 MEQ CR-TABS TAKE 2 TABS DAILY POTASSIUM CHLORIDE 29283150320 Active Tu Landeros MD Active AMBIEN 10 MG TAB 1 tab by mouth at bedtime as needed for sleep AMBIEN 10 MG TAB 957513 ZOLPIDEM TARTRATE Inactive METFORMIN HCL 500 MG TABS 1 PO BID METFORMIN HCL 500 MG TABS 425512 METFORMIN HCL Inactive REGLAN 10 MG TAB 1 po TID PRN [place]ausea REGLAN 10 MG TAB 985481 METOCLOPRAMIDE HCL Inactive MECLIZINE HCL 25 MG CHEW TAB 1 four times a day as needed for dizziness 08/05 MECLIZINE HCL 25 MG CHEW TAB 410258 MECLIZINE HCL Inactive SOMA 350 MG TAB 1 po q 6 hours prn spasm SOMA 350 MG TAB 438585 CARISOPRODOL Inactive MELATONIN 5 MG TABS Take one by mouth daily MELATONIN 5 MG TABS 913484 MELATONIN Inactive MULTIVITAMINS TABS Take one by mouth daily MULTIVITAMINS TABS MULTIPLE VITAMIN Inactive LORTAB 5 5-500 MG TABS 1/2 to 1 tablet by mouth every 4 hours as needed for pain LORTAB 5 5-500 MG TABS HYDROCODONE- ACETAMINOPHEN Inactive XANAX 0.5 MG TABS 1 tablet every 6 hrs prn XANAX 0.5 MG TABS 815787 ALPRAZOLAM Inactive AUGMENTIN 875-125 MG TAB 1 tab by mouth twice daily with food AUGMENTIN 875-125 MG TAB 313478 AMOXICILLIN-POT CLAVULANATE Inactive ALPRAZOLAM 0.5 MG TABS 1 tab every 6hrs as needed ALPRAZOLAM 0.5 MG TABS 764193 ALPRAZOLAM Inactive SPIRONOLACTONE 25 MG TAB 0.5 tablet by mouth daily SPIRONOLACTONE 25 MG TAB 035114 SPIRONOLACTONE Inactive ACCU-CHEK KEYONA PLUS W/DEVICE KIT Use for testing bloodsugars three times daily as needed ACCU-CHEK KEYONA PLUS W/DEVICE KIT BLOOD GLUCOSE MONITORING SUPPL Inactive ACCU-CHEK KEYONA PLUS STRP Use for testing bloodsugars three times daily as needed ACCU-CHEK KEYONA PLUS STRP GLUCOSE BLOOD Inactive ACCU-CHEK FASTCLIX LANCETS MISC Use to check bloodsugar three times daily as needed ACCU-CHEK FASTCLIX LANCETS MISC 43182486025 LANCETS Inactive TRAMADOL HCL 50 MG TABS 1 tablets every 6 hours as needed for pain TRAMADOL HCL 50 MG TABS 348827 TRAMADOL HCL Inactive VENLAFAXINE HCL 75 MG TABS 1 po BID VENLAFAXINE HCL 75 MG TABS 661896 VENLAFAXINE HCL Inactive HYDROCODONE-ACETAMINOPHEN 5-500 MG TABS take one po Q 4-6 hours prn HYDROCODONE-ACETAMINOPHEN 5-500 MG TABS HYDROCODONE- ACETAMINOPHEN Inactive LORTAB 5 5-500 MG TABS 1/2 to 1 tablet by mouth every 4 hours as needed for pain LORTAB 5 5-500 MG TABS HYDROCODONE- ACETAMINOPHEN Inactive LAMISIL 250 MG TAB 1 po qd LAMISIL 250 MG TAB 380376 TERBINAFINE HCL Inactive VENLAFAXINE HCL 37.5 MG TABS 1 po BID VENLAFAXINE HCL 37.5 MG TABS 471834 VENLAFAXINE HCL Inactive CIPRO 500 MG TAB 1 tablet by mouth twice daily CIPRO 500 MG TAB 499292 CIPROFLOXACIN HCL Inactive VENLAFAXINE HCL 75 MG TABS 1 po BID VENLAFAXINE HCL 75 MG TABS 157142 VENLAFAXINE HCL Inactive SIMVASTATIN 40 MG TABS Take one by mouth daily SIMVASTATIN 40 MG TABS 861570 SIMVASTATIN Inactive OMEPRAZOLE 20 MG TBEC 1 PO 30 MIN BEFORE 1ST MEAL OMEPRAZOLE 20 MG TBEC 984368 OMEPRAZOLE Inactive FENOFIBRATE 145 MG TABS 1 po qd FENOFIBRATE 145 MG TABS 470601 FENOFIBRATE Inactive BACTRIM DS 800-160 MG TABS 1 bid x 14 day start 09-28-13 BACTRIM DS 800-160 MG TABS SULFAMETHOXAZOLE-TRIMETHOPRIM Inactive B-12 100 MCG TABS Take one by mouth daily B-12 100 MCG TABS CYANOCOBALAMIN Inactive GABAPENTIN 100 MG CAPS 1 po bid GABAPENTIN 100 MG CAPS 474537 GABAPENTIN Inactive HYDROCODONE-ACETAMINOPHEN 5-325 MG TABS 1 tab by mouth every 6 hours as needed for pain HYDROCODONE-ACETAMINOPHEN 5-325 MG TABS 410507 HYDROCODONE-ACETAMINOPHEN Inactive CIPRO 500 MG TABS 1 bid x 14 days start -814 CIPRO 500 MG TABS 846492 CIPROFLOXACIN HCL Inactive ALIGN 4 MG CAPS [...] as needed DICLOFENAC SODIUM 50 MG TBEC 389467 DICLOFENAC SODIUM Inactive PREDNISONE 20 MG TAB 2 tablets once daily for 2 days, then 1 tablet once daily for 2 days PREDNISONE 20 MG TAB 854561 PREDNISONE Inactive TRUEDRAW LANCING DEVICE MISC Test twice a day dx 250.0 TRUEDRAW LANCING DEVICE MISC LANCET DEVICES Inactive TRUERESULT BLOOD GLUCOSE W/DEVICE KIT test blood sugar twice daily dx 250.00 TRUERESULT BLOOD GLUCOSE W/DEVICE KIT BLOOD GLUCOSE MONITORING SUPPL Inactive TRIAMCINOLONE ACETONIDE 0.1 % OINT Apply to affected areas TID for up to 2 weeks TRIAMCINOLONE ACETONIDE 0.1 % OINT 8763205 TRIAMCINOLONE ACETONIDE Inactive PREDNISONE 20 MG TAB 2 tabs daily for 3 days, 1 tab daily for 3 days, 1/2 tab daily for 2 days PREDNISONE 20 MG TAB 134466 PREDNISONE Inactive PREDNISONE 20 MG TAB 2 tabs daily for 3 days, 1 tab daily for 3 days, 1/2 tab daily for 2 days PREDNISONE 20 MG TAB 910456 PREDNISONE Inactive BACTRIM DS 800-160 MG TABS 1 po BID x 7 days BACTRIM DS 800-160 MG TABS SULFAMETHOXAZOLE-TRIMETHOPRIM Inactive Immunizations Vaccine Administration Date Value Standard Description Seasonal influenza vaccine, injectable, containing preservative, for > 3 years old (Afluria, FluLaval, Fluzone, Fluvirin, Fluarix, Agriflu(>=18 yo)) Fluzone (>3 yrs.) [[id number]] Influenza, seasonal, injectable influenza immunization (Flu Vax) has been administered 02/22/2012 influenza virus vaccine, unspecified formulation Seasonal influenza vaccine, injectable, containing preservative, for > 3 years old (Afluria, FluLaval, Fluzone, Fluvirin, Fluarix, Agriflu(>=18 yo)) Fluzone (>3 yrs.) [[id number]] Influenza, seasonal, injectable Vital Signs Date Name [...] CBC - Chemistry sodium, serum 143 mmol/L 473-821 5164/03/10 potassium, serum 4.9 mmol/L 3.5-5.2 chloride, serum [...] 0.30 mg/dL 0.00-1.00 cholesterol, serum 111 mg/dL 771-920 6916/07/28 triglyceride, serum, fasting 177 mg/dL 30-200 HDL [...] mg/dL Encounters Code Encounter Date Provider Facility CPT-17678 Level 4 Est. Patient 11:03:38 CDT Tu Landeros MD [facility] CPT-49438 Level 3 Est. Patient 10:20:44 CDT Fab Morales DO [facility] CPT-28176 Level 4 Est. Patient 14:38:57 CDT Tu Landeros MD [facility] CPT-55567 Level 4 Est. Patient 14:27:39 WAREHOUSE ATTENDANT Tu Landeros MD [facility] CPT-68017 Level 4 Est. Patient 09:45:25 CDT Tu Landeros MD [facility] CPT-25307 Level 4 Est. Patient 09:05:20 WAREHOUSE ATTENDANT Tu Landeros MD [facility] CPT-76130 Level 4 Est. Patient 14:09:06 CDT Tu Landeros MD [facility] CPT-86293 Level 3 Est. Patient 13:36:54 CDT Tu Landerso MD [facility] CPT-70553 Level 3 Est. Patient 08:59:14 CDT Tu Landeros MD [facility] CPT-01595 Level 3 Est. Patient 13:48:35 CDT Fab Morales DO [facility] CPT-47836 Level 4 Est. Patient 10:05:48 CDT Tu Landeros MD [facility] CPT-11380 Level 3 Est. Patient 13:38:42 CDT Marek BANKS [facility] CPT-30522 Level 5 Est. Patient 08:08:39 CDT Jerrica FRANCIS [facility] CPT-09837 Level 4 Est. Patient 14:23:38 CDT Tu Landeros MD [facility] CPT-27527 Level 3 Est. Patient 11:44:04 CDT Tu Landeros MD [facility] CPT-49161 Level 3 Est. Patient 11:03:20 WAREHOUSE ATTENDANT Tu Landeros MD [facility] CPT-55565 Level 3 Est. Patient 11:03:14 WAREHOUSE ATTENDANT Tu Landeros MD [facility] CPT-52787 Level 3 Est. Patient 12:42:49 CDT Tu Landeros MD [facility] CPT-20386 Level 3 Est. Patient 11:52:06 CDT Tu Landeros MD [facility] CPT-71095 Level 3 Est. Patient 13:58:11 CDT Tu Landeros MD [facility] CPT-24566 Level 3 Est. Patient 17:50:07 CDT Fab Morales DO [facility] CPT-18205 Level 3 Est. Patient 12:06:29 CDT Elvira Cervantes MD PhD [facility] CPT-21222 Level 3 Est. Patient 15:50:32 CDT Tu Landeros MD [facility] CPT-89966 Level 4 Est. Patient 16:08:29 CDT Tu Landeros MD [facility] CPT-69117 Level 3 Est. Patient 16:04:19 CDT Tu Landeros MD [facility] CPT-78656 Level 3 Est. Patient 11:22:30 WAREHOUSE ATTENDANT Tu Landeros MD [facility] CPT-30054 Level 4 Est. Patient 16:24:02 WAREHOUSE ATTENDANT Tu Landeros MD [facility] CPT-29367 Level 3 Est. Patient 17:21:23 WAREHOUSE ATTENDANT Tu Landeros MD [facility] Procedures Code Procedure Name Date Entry Date Standard Description CPT-JTINJ Asp/Joint Injection 15:51:27 WAREHOUSE ATTENDANT CPT-OV Office Visit 15:52:02 WAREHOUSE ATTENDANT CPT-OV Office Visit 15:45:11 CDT CPT-000 Give Zostavax 14:09:06 CDT CPT-95299 Administration single or combination vaccine inc oral 15 :19:04 CDT CPT-63175 Zoster Vaccine (Zostavax) 15:19:04 CDT CPT-49343 Administration single or combination vaccine inc oral 20 :51:03 CDT CPT-17114 Influenza split virus > age 3 20:51:03 CDT CPT-25822 No Charge Offi Visit 14:52:03 CDT CPT-OV Office Visit 14:57:43 CDT CPT-OV Office Visit 15:22:32 CDT CPT-06159 Administration single or combination vaccine inc oral 11 :33:15 CDT CPT-39487 Influenza split virus > age 3 11:33:15 CDT
--- OUTSIDE RECORDS SUMMARY | 2018-04-25 14:37 | XMS REPORT | Clinical Summary ---
Author Author Admin, SACHI Organization [employer] Address Unknown Phone Unavailable Allergies, Adverse Reactions, [...] SWELLING MASS OR LUMP 782.2 Resolved 03/15 uT Landeros MD Localized superficial swelling, mass, or [...] parts of trunk, complicated 879.7 Resolved Tu Lanedros MD Open wound of other and unspecified [...] unspecified site POSTMENOPAUSAL BLEEDING ICD-627.1 Inactive Elvira Cervanets MD PhD HEALTH SCREENING ICD-V70.0 Inactive Elvira [...] then 1 po qd x 4 AZITHROMYCIN 21680683378 Active Tu Landeros MD Active GUAIFENESIN ER 600 MG ORAL TABLET EXTENDED RELEASE 12 HOUR 1 twice a day as needed for congestion GUAIFENESIN 21605858351 No Longer Active Tu Landeros MD Active PREDNISONE 20 MG ORAL TABLET 2 po qd x 5 days PREDNISONE 88719051110 No Longer Active Tu Landeros MD Active PROMETHAZINE-CODEINE 6.25-10 MG/5ML ORAL SYRUP 5ml po q6hr PRN Cough PROMETHAZINE-CODEINE 00779176967 Active Tu Landeros MD Active FLUTICASONE PROPIONATE 50 MCG/ACT NASAL SUSPENSION 2 sprays/nostril qd PRN Congestion/Allergies FLUTICASONE PROPIONATE 49802412566 Active Tu Landeros MD Active NASONEX 50 MCG/ACT NASAL SUSPENSION 2 actuations in each nostril q day 07/15 MOMETASONE FUROATE 49413479169 No Longer Active Tu Landeros MD Active MAGNESIUM OXIDE 400 MG ORAL TABLET 1 po BID MAGNESIUM OXIDE 47612386976 Active Tu Landeros MD Active SIMVASTATIN 20 MG ORAL TABLET 0.5 po qHS SIMVASTATIN 28680001365 Active Tu Landeros MD Active DICLOFENAC SODIUM 75 MG ORAL TABLET DELAYED RELEASE 1 po BID PRN Pain DICLOFENAC SODIUM 99877823836 No Longer Active Tu Landeros MD Active GABAPENTIN 100 MG ORAL CAPSULE 1 po TID GABAPENTIN 87541962318 Active Tu Landeros MD Active DICLOFENAC SODIUM 50 MG ORAL TABLET DELAYED RELEASE 1 po BID PRN Pain DICLOFENAC SODIUM 48025677358 No Longer Active Tu Landeros MD Active CYCLOBENZAPRINE HCL 10 MG ORAL TABLET 1 po TID PRN Muscle Spasm CYCLOBENZAPRINE HCL 37043742276 No Longer Active Tu Landeros MD Active INVOKANA 100 MG ORAL TABLET 1 po qd CANAGLIFLOZIN 12741131643 Active Tu Landeros MD Active GLIPIZIDE 5 MG ORAL TABLET 1 po qd GLIPIZIDE 66277034466 No Longer Active Tu Landeros MD Active VENLAFAXINE HCL 75 MG ORAL TABLET 1 po BID VENLAFAXINE HCL 09004383497 Active Tu Landeros MD Active GLIMEPIRIDE 1 MG ORAL TABLET 1 po qd GLIMEPIRIDE 51223247041 No Longer Active Tu Landeros MD Active TRUE METRIX BLOOD GLUCOSE TEST IN VITRO STRIP Test blood sugar BID Dx: E11.9 GLUCOSE BLOOD 64827407986 Active Tu Landeros MD Active TRUE METRIX AIR GLUCOSE METER w/Device KIT Test blood glucose BID Dx: E11.9 BLOOD GLUCOSE MONITORING SUPPL 30075807343 Active Tu Landeros MD Active TRUETEST TEST IN VITRO STRIP test blood sugar twice daily. DX 250.0 GLUCOSE BLOOD 00732588895 No Longer Active Mirna Stanley LPN Active TRUEDRAW LANCING DEVICE test blood sugar twice daily dx: 250.00 LANCET DEVICES 65060043802 No Longer Active Mirna Stanley LPN Active ENALAPRIL MALEATE 20 MG ORAL TABLET 2 po qd ENALAPRIL MALEATE 34158857190 Active Tu Landeros MD Active SUPER B COMPLEX/VITAMIN C ORAL TABLET 1 qd B COMPLEX- C 00835741633 No Longer Active Tu Landeros MD Active ASPIRIN EC 81 MG ORAL TABLET DELAYED RELEASE 1 po qd ASPIRIN 57550947272 Active Tu Landeros MD Active GLUCOSAMINE 500 MG TABS 2 po qd GLUCOSAMINE Active Tu Landeros MD Active FISH OIL 1000 MG ORAL CAPSULE 1 po qd OMEGA-3 FATTY ACIDS 26256108612 Active Tu Landeros MD Active METFORMIN HCL 1000 MG ORAL TABLET 1 po BID METFORMIN HCL 03375018914 Active Tu Landeros MD Active KLOR-CON 10 10 MEQ ORAL TABLET EXTENDED RELEASE 2 po qd POTASSIUM CHLORIDE 03569887933 Active Tu Landeros MD Active FUROSEMIDE 40 MG ORAL TABLET 1 po qd FUROSEMIDE 69900001048 Active Tu Landeros MD Active REQUIP 2 MG ORAL TABLET 1 po qHS PRN Restless legs ROPINIROLE HCL 26156491794 Active Tu Landeros MD Active REQUIP 2 MG ORAL TABLET Take one tablet at bedtime prn ROPINIROLE HCL 06472639128 No Longer Active Tu Landeros MD Active VENTOLIN HFA 108 (90 Base) MCG/ACT INHALATION AEROSOL SOLUTION 1-2 puffs every 4 hours if needed for cough/congestion ALBUTEROL SULFATE 60756319046 No Longer Active Ambika Aden APRN Active ZITHROMAX 250 MG ORAL TABLET 2 po today, then 1 po q days 2-5 AZITHROMYCIN 32332658241 No Longer Active Miranda Farah APRN Active FLONASE 50 MCG/ACT NASAL SUSPENSION 1 spray each nostril twice daily until bottle empty FLUTICASONE PROPIONATE 54935497908 No Longer Active Tu Landeros MD Active COLACE 100 MG ORAL CAPSULE 1 po BID PRN Constipation DOCUSATE SODIUM 41977476094 Active Tu Landeros MD Active TRUERESULT BLOOD GLUCOSE w/Device KIT test blood sugar twice daily dx 250.00 BLOOD GLUCOSE MONITORING SUPPL 44147872963 No Longer Active Tu Landeros MD Active TRUEDRAW LANCING DEVICE Test twice a day dx 250.0 LANCET DEVICES 85293002649 No Longer Active Tu Landeros MD Active PREDNISONE 20 MG ORAL TABLET 2 tablets once daily for 2 days, then 1 tablet once daily for 2 days PREDNISONE 40598797549 No Longer Active Tu Landeros MD Active DICLOFENAC SODIUM 50 MG ORAL TABLET DELAYED RELEASE 1 tablet by mouth three times a day as needed DICLOFENAC SODIUM 44954149987 No Longer Active Fab Morales DO Active EMBRACE BLOOD GLUCOSE TEST IN VITRO STRIP test blood sugar twice daily DX 250.0 GLUCOSE BLOOD 60834033948 No Longer Active Tu Landeros MD Active TRUETEST TEST IN VITRO STRIP test blood sugar three times daily dx: 250.00 GLUCOSE BLOOD 76485812848 No Longer Active Suzebianca Nicole RMA Active TRUERESULT BLOOD GLUCOSE w/Device KIT use to test blood sugar tid dx: 250.00 BLOOD GLUCOSE MONITORING SUPPL 86852900889 No Longer Active Suze Corey RMA Active ALIGN 4 MG ORAL CAPSULE 1 tid PROBIOTIC PRODUCT 74771523931 No Longer Active Shaun Sy MD Active CIPRO 500 MG ORAL TABLET 1 bid x 14 days start 09-28-13 CIPROFLOXACIN HCL 36051569391 No Longer Active Shaun Sy MD Active TRAMADOL HCL 50 MG ORAL TABLET 1-2 tablets every 6 hours as needed for pain TRAMADOL HCL 08324307320 Active Tu Landeros MD Active HYDROCODONE-ACETAMINOPHEN 5-325 MG ORAL TABLET 1 tab by mouth every 6 hours as needed for pain HYDROCODONE-ACETAMINOPHEN 13617375226 No Longer Active Tu Landeros MD Active OMEPRAZOLE 20 MG ORAL CAPSULE DELAYED RELEASE 1 po q a.m. OMEPRAZOLE 97343355941 Active Fab Morales DO Active GABAPENTIN 100 MG ORAL CAPSULE 1 po bid GABAPENTIN 13699705166 No Longer Active Tu Landeros MD Active B-12 100 MCG ORAL TABLET Take one by mouth daily CYANOCOBALAMIN 39185838307 No Longer Active Tu Landeros MD Active BACTRIM DS 800-160 MG ORAL TABLET 1 bid x 14 day start 09-28-13 SULFAMETHOXAZOLE-TRIMETHOPRIM 30956491907 No Longer Active Tu Landeros MD Active CARVEDILOL 12.5 MG ORAL TABLET 1 po BID CARVEDILOL 18966073827 Active Tu Landeros MD Active TRILIPIX 135 MG ORAL CAPSULE DELAYED RELEASE 1 q hs CHOLINE FENOFIBRATE 90349388085 Active Tu Landeros MD Active FENOFIBRATE 145 MG ORAL TABLET 1 po qd FENOFIBRATE 82756429435 No Longer Active JASPREET Perez Active OMEPRAZOLE 20 MG ORAL TABLET DELAYED RELEASE 1 PO 30 MIN BEFORE 1ST MEAL 2010 OMEPRAZOLE 04587942188 No Longer Active JASPREET Perez Active SIMVASTATIN 40 MG ORAL TABLET Take one by mouth daily SIMVASTATIN 88545332362 No Longer Active JASPREET Perez Active VENLAFAXINE HCL 75 MG ORAL TABLET 1 po BID VENLAFAXINE HCL 50121116585 No Longer Active JASPREET Perez Active CIPRO 500 MG ORAL TABLET 1 tablet by mouth twice daily CIPROFLOXACIN HCL 33477250893 No Longer Active Tu Landeros MD Active VENLAFAXINE HCL 37.5 MG ORAL TABLET 1 po BID VENLAFAXINE HCL 88015359971 No Longer Active Suze VOGEL Active LAMISIL 250 MG ORAL TABLET 1 po qd TERBINAFINE HCL 10555878332 No Longer Active Tu Landeros MD Active LORTAB 5-500 MG ORAL TABLET 1/2 to 1 tablet by mouth every 4 hours as needed for pain HYDROCODONE-ACETAMINOPHEN 11850181554 No Longer Active Tu Landeros MD Active HYDROCODONE-ACETAMINOPHEN 5-500 MG ORAL TABLET take one po Q 4-6 hours prn HYDROCODONE-ACETAMINOPHEN 38578392142 No Longer Active Tu Landeros MD Active BACTRIM DS 800-160 MG ORAL TABLET 1 po BID x 7 days SULFAMETHOXAZOLE-TRIMETHOPRIM 30210605420 No Longer Active Tu Landeros MD Active VENLAFAXINE HCL 75 MG ORAL TABLET 1 po BID VENLAFAXINE HCL 29296686694 No Longer Active Elvira Cervantes MD PhD Active TRAMADOL HCL 50 MG ORAL TABLET 1 tablets every 6 hours as needed for pain TRAMADOL HCL 55793205880 No Longer Active Tu Landeros MD Active ACCU-CHEK FASTCLIX LANCETS Use to check bloodsugar three times daily as needed LANCETS 90058704290 No Longer Active Tu Landeros MD Active ACCU-CHEK KEYONA PLUS IN VITRO STRIP Use for testing bloodsugars three times daily as needed GLUCOSE BLOOD 17845935935 No Longer Active Tu Landeros MD Active ACCU-CHEK KEYONA PLUS w/Device KIT Use for testing bloodsugars three times daily as needed BLOOD GLUCOSE MONITORING SUPPL 72474452556 No Longer Active Tu Landeros MD Active SPIRONOLACTONE 25 MG ORAL TABLET 0.5 tablet by mouth daily 09/09 SPIRONOLACTONE 45944295649 No Longer Active Tu Landeros MD Active ALPRAZOLAM 0.5 MG ORAL TABLET 1 tab every 6hrs as needed ALPRAZOLAM 16399138577 No Longer Active Tu Landeros MD Active AUGMENTIN 875-125 MG ORAL TABLET 1 tab by mouth twice daily with food AMOXICILLIN-POT CLAVULANATE 94438695855 No Longer Active Tu Landeros MD Active PREDNISONE 20 MG ORAL TABLET 2 tabs daily for 3 days, 1 tab daily for 3 days, 1/2 tab daily for 2 days PREDNISONE 87012742138 No Longer Active Tu Landeros MD Active XANAX 0.5 MG ORAL TABLET 1 tablet every 6 hrs prn ALPRAZOLAM 12702600737 No Longer Active Tu Landeros MD Active PREDNISONE 20 MG ORAL TABLET 2 tabs daily for 3 days, 1 tab daily for 3 days, 1/2 tab daily for 2 days PREDNISONE 85445423140 No Longer Active Tu Landeros MD Active TRIAMCINOLONE ACETONIDE 0.1 % EXTERNAL OINTMENT Apply to affected areas TID for up to 2 weeks TRIAMCINOLONE ACETONIDE 09578262622 No Longer Active Tu Landeros MD Active LORTAB 5-500 MG ORAL TABLET 1/2 to 1 tablet by mouth every 4 hours as needed for pain HYDROCODONE-ACETAMINOPHEN 48563302609 No Longer Active Tu Landeros MD Active MULTIVITAMINS TABS Take one by mouth daily MULTIPLE VITAMIN 73446498059 No Longer Active Tu Landeros MD Active MELATONIN 5 MG ORAL TABLET Take one by mouth daily MELATONIN 80844653280 No Longer Active Tu Landeros MD Active SOMA 350 MG ORAL TABLET 1 po q 6 hours prn spasm CARISOPRODOL 33569685091 No Longer Active Tu Landeros MD Active MECLIZINE HCL 25 MG ORAL TABLET CHEWABLE 1 four times a day as needed for dizziness MECLIZINE HCL 03629479619 No Longer Active Fab Morales DO Active ANGEL BREEZE 2 TEST IN VITRO DISK test tid prn GLUCOSE BLOOD 36284432609 No Longer Active Negra Scott RN Active REGLAN 10 MG ORAL TABLET 1 po TID PRN Nausea METOCLOPRAMIDE HCL 26646370717 No Longer Active Tu Landeros MD Active METFORMIN HCL 500 MG ORAL TABLET 1 PO BID METFORMIN HCL 90850429524 No Longer Active Tu Landeros MD Active AMBIEN 10 MG ORAL TABLET 1 tab by mouth at bedtime as needed for sleep 06/10 ZOLPIDEM TARTRATE 07227162424 No Longer Active Tu Landeros MD Active FLUOXETINE HCL 40 MG ORAL CAPSULE 1 po q day FLUOXETINE HCL 85138990761 No Longer Active Mayra Terry Active TRILIPIX 135 MG ORAL CAPSULE DELAYED RELEASE 1 po qd CHOLINE FENOFIBRATE 85230468099 No Longer Active Tu Landeros MD Active AMBIEN 10 MG ORAL TABLET 1 tab by mouth at bedtime as needed for sleep 06/10 AMBIEN 10 MG ORAL TABLET 312219 ZOLPIDEM TARTRATE Inactive METFORMIN HCL 500 MG ORAL TABLET 1 PO BID METFORMIN HCL 500 MG ORAL TABLET 580782 METFORMIN HCL Inactive REGLAN 10 MG ORAL TABLET 1 po TID PRN Nausea REGLAN 10 MG ORAL TABLET 535511 METOCLOPRAMIDE HCL Inactive MECLIZINE HCL 25 MG ORAL TABLET CHEWABLE 1 four times a day as needed for dizziness MECLIZINE HCL 25 MG ORAL TABLET CHEWABLE 295514 MECLIZINE HCL Inactive SOMA 350 MG ORAL TABLET 1 po q 6 hours prn spasm SOMA 350 MG ORAL TABLET 762851 CARISOPRODOL Inactive MELATONIN 5 MG ORAL TABLET Take one by mouth daily MELATONIN 5 MG ORAL TABLET 955301 MELATONIN Inactive MULTIVITAMINS TABS Take one by mouth daily MULTIVITAMINS TABS MULTIPLE VITAMIN Inactive LORTAB 5-500 MG ORAL TABLET 1/2 to 1 tablet by mouth every 4 hours as needed for pain LORTAB 5-500 MG ORAL TABLET HYDROCODONE- ACETAMINOPHEN Inactive XANAX 0.5 MG ORAL TABLET 1 tablet every 6 hrs prn XANAX 0.5 MG ORAL TABLET 429102 ALPRAZOLAM Inactive AUGMENTIN 875-125 MG ORAL TABLET 1 tab by mouth twice daily with food AUGMENTIN 875-125 MG ORAL TABLET 309111 AMOXICILLIN-POT CLAVULANATE Inactive ALPRAZOLAM 0.5 MG ORAL TABLET 1 tab every 6hrs as needed ALPRAZOLAM 0.5 MG ORAL TABLET 078249 ALPRAZOLAM Inactive SPIRONOLACTONE 25 MG ORAL TABLET 0.5 tablet by mouth daily 09/09 SPIRONOLACTONE 25 MG ORAL TABLET 357871 SPIRONOLACTONE Inactive ACCU-CHEK KEYONA PLUS w/Device KIT [...] times daily as needed ACCU-CHEK FASTCLIX LANCETS 36831466734 LANCETS Inactive TRAMADOL HCL 50 MG ORAL TABLET 1 tablets every 6 hours as needed for pain TRAMADOL HCL 50 MG ORAL TABLET 864628 TRAMADOL HCL Inactive VENLAFAXINE HCL 75 MG ORAL TABLET 1 po BID VENLAFAXINE HCL 75 MG ORAL TABLET 900634 VENLAFAXINE HCL Inactive HYDROCODONE-ACETAMINOPHEN 5-500 MG ORAL TABLET take one po Q 4-6 hours prn HYDROCODONE-ACETAMINOPHEN 5-500 MG ORAL TABLET 091403 HYDROCODONE-ACETAMINOPHEN Inactive LORTAB 5-500 MG ORAL TABLET 1/2 to 1 tablet by mouth every 4 hours as needed for pain LORTAB 5-500 MG ORAL TABLET HYDROCODONE- ACETAMINOPHEN Inactive LAMISIL 250 MG ORAL TABLET 1 po qd LAMISIL 250 MG ORAL TABLET 395852 TERBINAFINE HCL Inactive VENLAFAXINE HCL 37.5 MG ORAL TABLET 1 po BID VENLAFAXINE HCL 37.5 MG ORAL TABLET 065832 VENLAFAXINE HCL Inactive CIPRO 500 MG ORAL TABLET 1 tablet by mouth twice daily CIPRO 500 MG ORAL TABLET 156712 CIPROFLOXACIN HCL Inactive VENLAFAXINE HCL 75 MG ORAL TABLET 1 po BID VENLAFAXINE HCL 75 MG ORAL TABLET 629039 VENLAFAXINE HCL Inactive SIMVASTATIN 40 MG ORAL TABLET Take one by mouth daily SIMVASTATIN 40 MG ORAL TABLET 924262 SIMVASTATIN Inactive OMEPRAZOLE 20 MG ORAL TABLET DELAYED RELEASE 1 PO 30 MIN BEFORE 1ST MEAL 2010 OMEPRAZOLE 20 MG ORAL TABLET DELAYED RELEASE 649055 OMEPRAZOLE Inactive FENOFIBRATE 145 MG ORAL TABLET 1 po qd FENOFIBRATE 145 MG ORAL TABLET 229482 FENOFIBRATE Inactive BACTRIM DS 800-160 MG ORAL TABLET 1 bid x 14 day start 09-28-13 BACTRIM DS 800-160 MG ORAL TABLET 210427 SULFAMETHOXAZOLE- TRIMETHOPRIM Inactive B-12 100 MCG ORAL TABLET Take one by mouth daily B-12 100 MCG ORAL TABLET CYANOCOBALAMIN Inactive GABAPENTIN 100 MG ORAL CAPSULE 1 po bid GABAPENTIN 100 MG ORAL CAPSULE 799114 GABAPENTIN Inactive HYDROCODONE-ACETAMINOPHEN 5-325 MG ORAL TABLET 1 tab by mouth every 6 hours as needed for pain HYDROCODONE-ACETAMINOPHEN 5-325 MG ORAL TABLET 754343 HYDROCODONE-ACETAMINOPHEN Inactive CIPRO 500 MG ORAL TABLET 1 bid x 14 days start 09-28-13 CIPRO 500 MG ORAL TABLET 269252 CIPROFLOXACIN HCL Inactive ALIGN 4 MG ORAL [...] SODIUM 50 MG ORAL TABLET DELAYED RELEASE 547608 DICLOFENAC SODIUM Inactive PREDNISONE 20 MG ORAL TABLET 2 tablets once daily for 2 days, then 1 tablet once daily for 2 days PREDNISONE 20 MG ORAL TABLET 976554 PREDNISONE Inactive TRUEDRAW LANCING DEVICE Test twice a day dx 250.0 TRUEDRAW LANCING DEVICE LANCET DEVICES Inactive TRUERESULT BLOOD GLUCOSE w/Device KIT test blood sugar twice daily dx 250.00 TRUERESULT BLOOD GLUCOSE w/Device KIT BLOOD GLUCOSE MONITORING SUPPL Inactive FLONASE 50 MCG/ACT NASAL SUSPENSION 1 spray each nostril twice daily until bottle empty FLONASE 50 MCG/ACT NASAL SUSPENSION 8382452 FLUTICASONE PROPIONATE Inactive VENTOLIN HFA 108 (90 Base) MCG/ACT INHALATION AEROSOL SOLUTION 1-2 puffs every 4 hours if needed for cough/congestion VENTOLIN HFA 108 (90 Base) MCG/ACT INHALATION AEROSOL SOLUTION ALBUTEROL SULFATE Inactive REQUIP 2 MG ORAL TABLET Take one tablet at bedtime prn REQUIP 2 MG ORAL TABLET 694795 ROPINIROLE HCL Inactive SUPER B COMPLEX/VITAMIN C ORAL TABLET 1 qd SUPER B COMPLEX/VITAMIN C ORAL TABLET 81338274298 B COMPLEX-C Inactive TRUEDRAW LANCING DEVICE test blood sugar twice daily dx: 250.00 TRUEDRAW LANCING DEVICE LANCET DEVICES Inactive TRUETEST TEST IN VITRO STRIP test blood sugar twice daily. DX 250.0 TRUETEST TEST IN VITRO STRIP GLUCOSE BLOOD Inactive CYCLOBENZAPRINE HCL 10 MG ORAL TABLET 1 po TID PRN Muscle Spasm CYCLOBENZAPRINE HCL 10 MG ORAL TABLET 414506 CYCLOBENZAPRINE HCL Inactive DICLOFENAC SODIUM 50 MG ORAL TABLET DELAYED RELEASE 1 po BID PRN Pain DICLOFENAC SODIUM 50 MG ORAL TABLET DELAYED RELEASE 206339 DICLOFENAC SODIUM Inactive DICLOFENAC SODIUM 75 MG ORAL TABLET DELAYED RELEASE 1 po BID PRN Pain DICLOFENAC SODIUM 75 MG ORAL TABLET DELAYED RELEASE 474206 DICLOFENAC SODIUM Inactive NASONEX 50 MCG/ACT NASAL SUSPENSION 2 actuations in each nostril q day 07/15 NASONEX 50 MCG/ACT NASAL SUSPENSION 7557591 MOMETASONE FUROATE Inactive GUAIFENESIN ER 600 MG ORAL TABLET EXTENDED RELEASE 12 HOUR 1 twice a day as needed for congestion GUAIFENESIN ER 600 MG ORAL TABLET EXTENDED RELEASE 12 HOUR GUAIFENESIN Inactive TRIAMCINOLONE ACETONIDE 0.1 % EXTERNAL OINTMENT Apply to affected areas TID for up to 2 weeks TRIAMCINOLONE ACETONIDE 0.1 % EXTERNAL OINTMENT 4902268 TRIAMCINOLONE ACETONIDE Inactive PREDNISONE 20 MG ORAL TABLET 2 tabs daily for 3 days, 1 tab daily for 3 days, 1/2 tab daily for 2 days PREDNISONE 20 MG ORAL TABLET 738175 PREDNISONE Inactive PREDNISONE 20 MG ORAL TABLET 2 tabs daily for 3 days, 1 tab daily for 3 days, 1/2 tab daily for 2 days PREDNISONE 20 MG ORAL TABLET 147650 PREDNISONE Inactive BACTRIM DS 800-160 MG ORAL TABLET 1 po BID x 7 days BACTRIM DS 800-160 MG ORAL TABLET 193117 SULFAMETHOXAZOLE-TRIMETHOPRIM Inactive ZITHROMAX 250 MG ORAL TABLET 2 po today, then 1 po q days 2-5 ZITHROMAX 250 MG ORAL TABLET 229215 AZITHROMYCIN Inactive PREDNISONE 20 MG ORAL TABLET 2 po qd x 5 days PREDNISONE 20 MG ORAL TABLET 377694 PREDNISONE Inactive Advance Directives Directive Description Start Date DISCUSSED WITH PATIENT -- NO DECISION MADE Immunizations Vaccine Administration Date Value Standard Description Seasonal influenza vaccine, injectable, containing preservative, for > 3 years old (Afluria, FluLaval, Fluzone, Fluvirin, Fluarix, Agriflu(>=18 yo)) Fluzone (>3 yrs.) [[id number]] Influenza, seasonal, injectable influenza immunization (Flu Vax) has been administered 02/22/2012 influenza virus vaccine, unspecified formulation Seasonal influenza vaccine, injectable, containing preservative, for > 3 years old (Afluria, FluLaval, Fluzone, Fluvirin, Fluarix, Agriflu(>=18 yo)) Fluzone (>3 yrs.) [[id number]] Influenza, seasonal, injectable Vital Signs Date Name [...] ... - Chemistry sodium, serum 141 mmol/L 742-225 0486/01/16 carbon dioxide, venous blood 28.3 mmol/L 21.0-32.0 [...] 6.7 % 4.3-6.0 cholesterol, serum 106 mg/dL 426-747 4804/01/16 triglyceride, serum, fasting 173 mg/dL 30-200 HDL [...] A1c - Chemistry cholesterol, serum 135 mg/dL 874-822 9335/05/17 HDL cholesterol, serum 41 mg/dL > OR=46 triglyceride, serum, fasting 206 mg/dL <150 LDL cholesterol, serum 53 MG/DL (CALC) mg/dL <130 cholesterol/HDL ratio, serum 3.3 (calc) < OR=5.0 Lab Report: HGBA1C - Chemistry hemoglobin A1C, blood, as % of total hemoglobin 6.5 % 4.3-6.0 Encounters Code Encounter Date Provider Facility CPT-17557 Level 3 Est. 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 Patient 14:20:36 CDT Tu Landeros MD [facility] CPT-84005 Level 4 Est. Patient 14:28:34 CDT Tu Landeros MD [facility] CPT-94538 Level 3 Est. Patient 13:33:09 CDT Tu Landeros MD [facility] CPT-98985 Level 4 Est. Patient 14:29:21 CDT Tu Landeros MD [facility] CPT-35644 Level 4 Est. 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 Patient 14:40:19 CDT Tu Landeros MD [facility] CPT-27085 Level 4 Est. 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 Patient 10:30:04 CDT Tu Landeros MD [facility] CPT-20423 Level 4 Est. Patient 11:03:38 CDT Tu Landeros MD [facility] CPT-26249 Level 3 Est. Patient 10:20:44 CDT Fab Morales DO [facility] CPT-62728 Level 4 Est. Patient 14:38:57 CDT Tu Landeros MD [facility] CPT-90439 Level 4 Est. 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 Patient 09:45:25 CDT Tu Landeros MD [facility] CPT-59968 Level 4 Est. 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 Patient 14:09:06 CDT Tu Landeros MD [facility] CPT-50598 Level 3 Est. Patient 13:36:54 CDT Tu Landeros MD [facility] CPT-71072 Level 3 Est. Patient 08:59:14 CDT Tu Landeros MD [facility] CPT-55205 Level 3 Est. Patient 13:48:35 CDT Fab Morales DO [facility] CPT-15953 Level 4 Est. Patient 10:05:48 CDT Tu Landeros MD [facility] CPT-75826 Level 3 Est. Patient 13:38:42 CDT Marek BANKS [facility] CPT-01782 Level 5 Est. Patient 08:08:39 CDT Jerrica FRANCIS [facility] CPT-05816 Level 4 Est. Patient 14:23:38 CDT Tu Landeros MD [facility] CPT-91117 Level 3 Est. Patient 11:44:04 CDT Tu Landeros MD [facility] CPT-96621 Level 3 Est. 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 Patient 12:42:49 CDT Tu Landeros MD [facility] CPT-88753 Level 3 Est. Patient 11:52:06 CDT Tu Landeros MD [facility] CPT-39623 Level 3 Est. Patient 13:58:11 CDT Tu Landeros MD [facility] CPT-69045 Level 3 Est. Patient 17:50:07 CDT Fab Morales DO [facility] CPT-21299 Level 3 Est. Patient 12:06:29 CDT Elvira Cervantes MD PhD [facility] CPT-42469 Level 3 Est. Patient 15:50:32 CDT Tu Landeros MD [facility] CPT-61467 Level 4 Est. Patient 16:08:29 CDT Tu Landeros MD [facility] CPT-49123 Level 3 Est. Patient 16:04:19 CDT Tu Landeros MD [facility] CPT-02441 Level 3 Est. 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 [employer] CPT-69455 HGBA1C - LAB USE ONLY 11:14:20 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 [employer] CPT-84257 CMP - LAB USE ONLY 11:14:19 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 [employer] CPT-88932 CBC - LAB USE ONLY 11:14:19 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 [employer] CPT-66735 Venipuncture Draw Fee 11:14:18 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 [employer] CPT-37513 First Vx - Ix admin for Medicare patients 16:46:52 CDT CPT-47038 Fluzone Preservative Free Intramuscular Suspension 16:46 :51 CDT CPT-06103 CBC - LAB USE ONLY 17:14:46 CDT CPT-00962 HGBA1C - LAB USE ONLY 17:14:46 CDT CPT-60023 Venipuncture Draw Fee 17:14:46 CDT CPT-G0438 Initial Annual Wellness Exam 14:13:04 CDT CPT-58896 Breathing Tx 10:06:54 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 [employer] CPT-84080 Postop F/U Visit 10:02:45 CDT CPT-LR Lesion Removal 09:02:56 CDT CPT-JTINJ Asp/Joint Injection 15:51:27 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 [employer] CPT-OV Office Visit 15:52:02 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 [employer] CPT-OV Office Visit 15:45:11 CDT CPT-000 Give Zostavax 14:09:06 CDT CPT-56301 Administration single or combination vaccine inc oral 15 :19:04 CDT CPT-19015 Zoster Vaccine (Zostavax) 15:19:04 CDT CPT-04675 Administration single or combination vaccine inc oral 20 :51:03 CDT CPT-84184 Influenza split virus > age 3 20:51:03 CDT CPT-31937 No Charge Offi Visit 14:52:03 CDT CPT-OV Office Visit 14:57:43 CDT CPT-OV Office Visit 15:22:32 CDT CPT-74154 Administration single or combination vaccine inc oral 11 :33:15 CDT CPT-45346 Influenza split virus > age 3 11:33:15 CDT
--- OUTSIDE RECORDS SUMMARY | 2018-04-25 14:38 | XMS REPORT | Clinical Summary ---
Author Author Admin, SACHI Clemons [facility] Address Unknown Phone Unavailable Allergies, Adverse [...] tablet by mouth twice daily METFORMIN HCL 18194444972 Active Tu Landeros MD Active FLONASE 50 MCG/ACT SUSP 1 spray each nostril twice daily until bottle empty FLUTICASONE PROPIONATE 34995479273 No Longer Active Tu Landeros MD Active COLACE 100 MG CAP 1 po BID PRN Constipation DOCUSATE SODIUM 52655321642 Active Tu Landeros MD Active SIMVASTATIN 40 MG TABS 0.5 tab daily at bedtime SIMVASTATIN 72107756788 Active JASPREET Moffett Active TRUERESULT BLOOD GLUCOSE W/DEVICE KIT test blood sugar twice daily dx 250.00 BLOOD GLUCOSE MONITORING SUPPL 10808773642 No Longer Active Tu Landeros MD Active TRUEDRAW LANCING DEVICE MISC Test twice a day dx 250.0 LANCET DEVICES 16888987154 No Longer Active Tu Landeros MD Active PREDNISONE 20 MG TAB 2 tablets once daily for 2 days, then 1 tablet once daily for 2 days PREDNISONE 24306138087 No Longer Active Tu Landeros MD Active DICLOFENAC SODIUM 50 MG TBEC 1 tablet by mouth three times a day as needed DICLOFENAC SODIUM 06782634990 No Longer Active Fab Morales DO Active TRUEDRAW LANCING DEVICE MISC test blood sugar twice daily dx: 250.00 LANCET DEVICES 00090296883 Active Tu Landeros MD Active TRUETEST TEST INVITR STRP test blood sugar twice daily. DX 250.0 GLUCOSE BLOOD 57266559142 Active Tu Landeros MD Active EMBRACE BLOOD GLUCOSE TEST STRP test blood sugar twice daily DX 250.0 2014 GLUCOSE BLOOD 12023126758 No Longer Active Tu Landeros MD Active TRUETEST TEST STRP test blood sugar three times daily dx: 250.00 GLUCOSE BLOOD 34941639372 No Longer Active Suze VOGEL Active TRUERESULT BLOOD GLUCOSE W/DEVICE KIT use to test blood sugar tid dx: 250.00 BLOOD GLUCOSE MONITORING SUPPL 36996918465 No Longer Active Suze Nicole RMA Active ALIGN 4 MG CAPS 1 tid PROBIOTIC PRODUCT 43370579401 No Longer Active Shaun Sy MD Active CIPRO 500 MG TABS 1 bid x 14 days start 09-28-13 CIPROFLOXACIN HCL 86532130284 No Longer Active Shaun Sy MD Active TRAMADOL HCL 50 MG TABS 1-2 tablets every 6 hours as needed for pain TRAMADOL HCL 08778448772 Active Tu Landeros MD Active HYDROCODONE-ACETAMINOPHEN 5-325 MG TABS 1 tab by mouth every 6 hours as needed for pain HYDROCODONE-ACETAMINOPHEN 24524648464 No Longer Active Tu Landeros MD Active OMEPRAZOLE 20 MG CPDR 1 po q a.m. OMEPRAZOLE 36511460269 Active Tu Landeros MD Active GABAPENTIN 100 MG CAPS 1 po bid GABAPENTIN 96521575790 No Longer Active Tu Landeros MD Active B-12 100 MCG TABS Take one by mouth daily CYANOCOBALAMIN 26384589178 No Longer Active Tu Landeros MD Active GABAPENTIN 100 MG CAPS by mouth twice a day GABAPENTIN 27937976144 Active Tu Landeros MD Active BACTRIM DS 800-160 MG TABS 1 bid x 14 day start 09-28-13 SULFAMETHOXAZOLE-TRIMETHOPRIM 52855510795 No Longer Active Tu Landeros MD Active CARVEDILOL 12.5 MG TABS 1 po BID CARVEDILOL 00558725538 Active Tu Landeros MD Active SUPER B COMPLEX/VITAMIN C TABS 1 qd B COMPLEX-C 09642051063 Active JASPREET Perez Active TRILIPIX 135 MG CPDR 1 q hs CHOLINE FENOFIBRATE 08050553391 Active Tu Landeros MD Active FENOFIBRATE 145 MG TABS 1 po qd FENOFIBRATE 78659716040 No Longer Active JASPREET Perez Active OMEPRAZOLE 20 MG TBEC 1 PO 30 MIN BEFORE 1ST MEAL OMEPRAZOLE 77545353999 No Longer Active JASPREET Perez Active SIMVASTATIN 40 MG TABS Take one by mouth daily SIMVASTATIN 29963147084 No Longer Active JASPREET Perez Active VENLAFAXINE HCL 37.5 MG TABS 1 bid VENLAFAXINE HCL 63025290949 Active Tu Landeros MD Active VENLAFAXINE HCL 75 MG TABS 1 po BID VENLAFAXINE HCL 95475879459 No Longer Active JASPREET Perez Active CIPRO 500 MG TAB 1 tablet by mouth twice daily CIPROFLOXACIN HCL 48788100077 No Longer Active Tu Landeros MD Active VENLAFAXINE HCL 37.5 MG TABS 1 po BID VENLAFAXINE HCL 32746992139 No Longer Active Suze NUNO Active LAMISIL 250 MG TAB 1 po qd TERBINAFINE HCL 95277042603 No Longer Active Tu Landeros MD Active LORTAB 5 5-500 MG TABS 1/2 to 1 tablet by mouth every 4 hours as needed for pain HYDROCODONE-ACETAMINOPHEN 66212643777 No Longer Active Tu Landeros MD Active ENALAPRIL MALEATE 20 MG TABS 1.5 po qd ENALAPRIL MALEATE 02630553361 Active Tu Landeros MD Active HYDROCODONE-ACETAMINOPHEN 5-500 MG TABS take one po Q 4-6 hours prn HYDROCODONE-ACETAMINOPHEN 75118159083 No Longer Active Tu Landeros MD Active BACTRIM DS 800-160 MG TABS 1 po BID x 7 days SULFAMETHOXAZOLE-TRIMETHOPRIM 93020803420 No Longer Active Tu Landeros MD Active VENLAFAXINE HCL 75 MG TABS 1 po BID VENLAFAXINE HCL 66793797021 No Longer Active Elvira Cervantes MD PhD Active TRAMADOL HCL 50 MG TABS 1 tablets every 6 hours as needed for pain TRAMADOL HCL 41406316452 No Longer Active Tu Landeros MD Active ACCU-CHEK FASTCLIX LANCETS MISC Use to check bloodsugar three times daily as needed LANCETS 55837239781 No Longer Active Tu Landeros MD Active ACCU-CHEK KEYONA PLUS STRP Use for testing bloodsugars three times daily as needed GLUCOSE BLOOD 33574834807 No Longer Active Tu Landeros MD Active ACCU-CHEK KEYONA PLUS W/DEVICE KIT Use for testing bloodsugars three times daily as needed BLOOD GLUCOSE MONITORING SUPPL 25299062657 No Longer Active Tu Landeros MD Active SPIRONOLACTONE 25 MG TAB 0.5 tablet by mouth daily SPIRONOLACTONE 36182017835 No Longer Active Tu Landeros MD Active ALPRAZOLAM 0.5 MG TABS 1 tab every 6hrs as needed ALPRAZOLAM 22043181724 No Longer Active Tu Landeros MD Active AUGMENTIN 875-125 MG TAB 1 tab by mouth twice daily with food AMOXICILLIN-POT CLAVULANATE 00483974638 No Longer Active Tu Landeros MD Active PREDNISONE 20 MG TAB 2 tabs daily for 3 days, 1 tab daily for 3 days, 1/2 tab daily for 2 days PREDNISONE 68615920853 No Longer Active Tu Landeros MD Active XANAX 0.5 MG TABS 1 tablet every 6 hrs prn ALPRAZOLAM 56540817240 No Longer Active Tu Landeros MD Active PREDNISONE 20 MG TAB 2 tabs daily for 3 days, 1 tab daily for 3 days, 1/2 tab daily for 2 days PREDNISONE 03398884816 No Longer Active Tu Landeros MD Active TRIAMCINOLONE ACETONIDE 0.1 % OINT Apply to affected areas TID for up to 2 weeks TRIAMCINOLONE ACETONIDE 22414011726 No Longer Active Tu Landeros MD Active LORTAB 5 5-500 MG TABS 1/2 to 1 tablet by mouth every 4 hours as needed for pain HYDROCODONE-ACETAMINOPHEN 09097185236 No Longer Active Tu Landeros MD Active MULTIVITAMINS TABS Take one by mouth daily MULTIPLE VITAMIN 78674831055 No Longer Active Tu Landeros MD Active MELATONIN 5 MG TABS Take one by mouth daily MELATONIN 58289125808 No Longer Active Tu Landeros MD Active SOMA 350 MG TAB 1 po q 6 hours prn spasm CARISOPRODOL 01720783990 No Longer Active Tu Landeros MD Active MECLIZINE HCL 25 MG CHEW TAB 1 four times a day as needed for dizziness 08/05 MECLIZINE HCL 67964909209 No Longer Active Fab Morales DO Active ANGEL BREEZE 2 TEST DISK test tid prn GLUCOSE BLOOD 05741985584 No Longer Active Negra Scott RN Active REGLAN 10 MG TAB 1 po TID PRN [place] METOCLOPRAMIDE HCL 42971765228 No Longer Active Tu Landeros MD Active METFORMIN HCL 500 MG TABS 1 PO BID METFORMIN HCL 59233200413 No Longer Active Tu Landeros MD Active AMBIEN 10 MG TAB 1 tab by mouth at bedtime as needed for sleep ZOLPIDEM TARTRATE 12484447418 No Longer Active Tu Landeros MD Active FLUOXETINE HCL 40 MG CAPS 1 po q day FLUOXETINE HCL 43236501074 No Longer Active Mayra [place] Active FISH OIL 1000 MG CAPS Take one by mouth daily OMEGA-3 FATTY ACIDS 82927583142 Active Tu Landeros MD Active GLUCOSAMINE 500 MG TABS Take 2 tab po qd GLUCOSAMINE 79467719761 Active Tu Landeros MD Active TRILIPIX 135 MG CPDR 1 po qd CHOLINE FENOFIBRATE 01805187505 No Longer Active Tu Landeros MD Active ASPIRIN 81 MG CHEW TAB 1 tablet by mouth daily ASPIRIN 14371293845 Active Tu Landeros MD Active FUROSEMIDE 40 MG TAB 1 tablet by mouth daily FUROSEMIDE 13283397654 Active Tu Landeros MD Active REQUIP 2 MG TABS Take one tablet at bedtime prn ROPINIROLE HCL 60996081258 Active Tu Landeros MD Active KLOR-CON 10 10 MEQ CR-TABS TAKE 2 TABS DAILY POTASSIUM CHLORIDE 63374290909 Active Tu Landeros MD Active AMBIEN 10 MG TAB 1 tab by mouth at bedtime as needed for sleep AMBIEN 10 MG TAB 917020 ZOLPIDEM TARTRATE Inactive METFORMIN HCL 500 MG TABS 1 PO BID METFORMIN HCL 500 MG TABS 197879 METFORMIN HCL Inactive REGLAN 10 MG TAB 1 po TID PRN Nausea REGLAN 10 MG TAB 331441 METOCLOPRAMIDE HCL Inactive MECLIZINE HCL 25 MG CHEW TAB 1 four times a day as needed for dizziness 08/05 MECLIZINE HCL 25 MG CHEW TAB 833155 MECLIZINE HCL Inactive SOMA 350 MG TAB 1 po q 6 hours prn spasm SOMA 350 MG TAB 603334 CARISOPRODOL Inactive MELATONIN 5 MG TABS Take one by mouth daily MELATONIN 5 MG TABS 026091 MELATONIN Inactive MULTIVITAMINS TABS Take one by mouth daily MULTIVITAMINS TABS MULTIPLE VITAMIN Inactive LORTAB 5 5-500 MG TABS 1/2 to 1 tablet by mouth every 4 hours as needed for pain LORTAB 5 5-500 MG TABS HYDROCODONE- ACETAMINOPHEN Inactive XANAX 0.5 MG TABS 1 tablet every 6 hrs prn XANAX 0.5 MG TABS 173948 ALPRAZOLAM Inactive AUGMENTIN 875-125 MG TAB 1 tab by mouth twice daily with food AUGMENTIN 875-125 MG TAB 549687 AMOXICILLIN-POT CLAVULANATE Inactive ALPRAZOLAM 0.5 MG TABS 1 tab every 6hrs as needed ALPRAZOLAM 0.5 MG TABS 007998 ALPRAZOLAM Inactive SPIRONOLACTONE 25 MG TAB 0.5 tablet by mouth daily SPIRONOLACTONE 25 MG TAB 589386 SPIRONOLACTONE Inactive ACCU-CHEK KEYONA PLUS W/DEVICE KIT Use for testing bloodsugars three times daily as needed ACCU-CHEK KEYONA PLUS W/DEVICE KIT BLOOD GLUCOSE MONITORING SUPPL Inactive ACCU-CHEK KEYONA PLUS STRP Use for testing bloodsugars three times daily as needed ACCU-CHEK KEYONA PLUS STRP GLUCOSE BLOOD Inactive ACCU-CHEK FASTCLIX LANCETS MISC Use to check bloodsugar three times daily as needed ACCU-CHEK FASTCLIX LANCETS MISC 78293088375 LANCETS Inactive TRAMADOL HCL 50 MG TABS 1 tablets every 6 hours as needed for pain TRAMADOL HCL 50 MG TABS 010314 TRAMADOL HCL Inactive VENLAFAXINE HCL 75 MG TABS 1 po BID VENLAFAXINE HCL 75 MG TABS 253371 VENLAFAXINE HCL Inactive HYDROCODONE-ACETAMINOPHEN 5-500 MG TABS take one po Q 4-6 hours prn HYDROCODONE-ACETAMINOPHEN 5-500 MG TABS HYDROCODONE- ACETAMINOPHEN Inactive LORTAB 5 5-500 MG TABS 1/2 to 1 tablet by mouth every 4 hours as needed for pain LORTAB 5 5-500 MG TABS HYDROCODONE- ACETAMINOPHEN Inactive LAMISIL 250 MG TAB 1 po qd LAMISIL 250 MG TAB 286431 TERBINAFINE HCL Inactive VENLAFAXINE HCL 37.5 MG TABS 1 po BID VENLAFAXINE HCL 37.5 MG TABS 707634 VENLAFAXINE HCL Inactive CIPRO 500 MG TAB 1 tablet by mouth twice daily CIPRO 500 MG TAB 445656 CIPROFLOXACIN HCL Inactive VENLAFAXINE HCL 75 MG TABS 1 po BID VENLAFAXINE HCL 75 MG TABS 748037 VENLAFAXINE HCL Inactive SIMVASTATIN 40 MG TABS Take one by mouth daily SIMVASTATIN 40 MG TABS 221563 SIMVASTATIN Inactive OMEPRAZOLE 20 MG TBEC 1 PO 30 MIN BEFORE 1ST MEAL OMEPRAZOLE 20 MG TBEC 158453 OMEPRAZOLE Inactive FENOFIBRATE 145 MG TABS 1 po qd FENOFIBRATE 145 MG TABS 178664 FENOFIBRATE Inactive BACTRIM DS 800-160 MG TABS 1 bid x 14 day start 09-28-13 BACTRIM DS 800-160 MG TABS 654142 SULFAMETHOXAZOLE-TRIMETHOPRIM Inactive B-12 100 MCG TABS Take one by mouth daily B-12 100 MCG TABS CYANOCOBALAMIN Inactive GABAPENTIN 100 MG CAPS 1 po bid GABAPENTIN 100 MG CAPS 126562 GABAPENTIN Inactive HYDROCODONE-ACETAMINOPHEN 5-325 MG TABS 1 tab by mouth every 6 hours as needed for pain HYDROCODONE-ACETAMINOPHEN 5-325 MG TABS 546816 HYDROCODONE-ACETAMINOPHEN Inactive CIPRO 500 MG TABS 1 bid x 14 days start 09-28-13 CIPRO 500 MG TABS 607533 CIPROFLOXACIN HCL Inactive ALIGN 4 MG CAPS [...] as needed DICLOFENAC SODIUM 50 MG TBEC 268610 DICLOFENAC SODIUM Inactive PREDNISONE 20 MG TAB 2 tablets once daily for 2 days, then 1 tablet once daily for 2 days PREDNISONE 20 MG TAB 589157 PREDNISONE Inactive TRUEDRAW LANCING DEVICE MISC Test [...] 2 weeks TRIAMCINOLONE ACETONIDE 0.1 % OINT 2794184 TRIAMCINOLONE ACETONIDE Inactive PREDNISONE 20 MG TAB 2 tabs daily for 3 days, 1 tab daily for 3 days, 1/2 tab daily for 2 days PREDNISONE 20 MG TAB 126870 PREDNISONE Inactive PREDNISONE 20 MG TAB 2 tabs daily for 3 days, 1 tab daily for 3 days, 1/2 tab daily for 2 days PREDNISONE 20 MG TAB 193396 PREDNISONE Inactive BACTRIM DS 800-160 MG TABS 1 po BID x 7 days BACTRIM DS 800-160 MG TABS 895010 SULFAMETHOXAZOLE-TRIMETHOPRIM Inactive Immunizations Vaccine Administration Date Value Standard Description Seasonal influenza vaccine, injectable, containing preservative, for > 3 years old (Afluria, FluLaval, Fluzone, Fluvirin, Fluarix, Agriflu(>=18 yo)) Fluzone (>3 yrs.) [[id number]] Influenza, seasonal, injectable influenza immunization (Flu Vax) has been administered 02/22/2012 influenza virus vaccine, unspecified formulation Seasonal influenza vaccine, injectable, containing preservative, for > 3 years old (Afluria, FluLaval, Fluzone, Fluvirin, Fluarix, Agriflu(>=18 yo)) Fluzone (>3 yrs.) [[id number]] Influenza, seasonal, injectable Vital Signs Date Name [...] CBC - Chemistry sodium, serum 143 mmol/L 229-363 5357/03/10 potassium, serum 4.9 mmol/L 3.5-5.2 chloride, serum [...] MICROALBUMIN - Chemistry sodium, serum 142 mmol/L 923-832 1484/10/08 potassium, serum 4.5 mmol/L 3.5-5.2 chloride, serum [...] 0.30 mg/dL 0.00-1.00 cholesterol, serum 111 mg/dL 911-119 5074/07/28 triglyceride, serum, fasting 177 mg/dL 30-200 HDL [...] Panel - Chemistry cholesterol, serum 124 mg/dL 537-415 3387/01/12 triglyceride, serum, fasting 135 mg/dL 30-200 HDL cholesterol, serum 41 mg/dL 32-96 LDL cholesterol, serum 56 mg/dL 0-130 sodium, serum 140 mmol/L 301-209 3636/01/12 carbon dioxide, venous blood 27.7 mmol/L 21.0-32.0 potassium, serum 4.5 mmol/L 3.5-5.2 chloride, serum 104 mmol/L 98-107 blood glucose 139 mg/dL 65-110 urea nitrogen, blood 16 mg/dL 7-18 alanine aminotransferase (SGPT), serum 32 U/L -78 aspartate aminotransferase (SGOT), serum 25 U/L 15-37 calcium, serum 9.1 mg/dL 8.5-10.1 bilirubin, serum, total 0.50 mg/dL 0.00-1.00 Encounters Code Encounter Date Provider Facility CPT-20634 Level 4 Est. Patient 13:50:18 TILE MOLDER HAND Tu Landeros MD [facility] CPT-93015 Level 3 Est. Patient 10:30:04 CDT Tu Landeros MD [facility] CPT-25840 Level 4 Est. Patient 11:03:38 CDT Tu Landeros MD [facility] CPT-99077 Level 3 Est. Patient 10:20:44 CDT Fab Morales DO [facility] CPT-42250 Level 4 Est. Patient 14:38:57 CDT Tu Landeros MD [facility] CPT-90119 Level 4 Est. Patient 14:27:39 TILE MOLDER HAND Tu Landeros MD [facility] CPT-76529 Level 4 Est. Patient 09:45:25 CDT Tu Landeros MD [facility] CPT-72274 Level 4 Est. Patient 09:05:20 TILE MOLDER HAND Tu Landeros MD [facility] CPT-70366 Level 4 Est. Patient 14:09:06 CDT Tu Landeros MD [facility] CPT-67977 Level 3 Est. Patient 13:36:54 CDT Tu Landeros MD [facility] CPT-36891 Level 3 Est. Patient 08:59:14 CDT Tu Landeros MD [facility] CPT-55188 Level 3 Est. Patient 13:48:35 CDT Fab Morales DO [facility] CPT-67669 Level 4 Est. Patient 10:05:48 CDT Tu Landeros MD [facility] CPT-13157 Level 3 Est. Patient 13:38:42 CDT Marek BANKS [facility] CPT-80612 Level 5 Est. Patient 08:08:39 CDT Piyushrichajanelle Dawsontay FRANCIS [facility] CPT-53234 Level 4 Est. Patient 14:23:38 CDT Tu Landeros MD [facility] CPT-78993 Level 3 Est. Patient 11:44:04 CDT Tu Landeros MD [facility] CPT-00280 Level 3 Est. Patient 11:03:20 TILE MOLDER HAND Tu Landeros MD [facility] CPT-15295 Level 3 Est. Patient 11:03:14 TILE MOLDER HAND Tu Landeros MD [facility] CPT-63364 Level 3 Est. Patient 12:42:49 CDT Tu Landeros MD [facility] CPT-33982 Level 3 Est. Patient 11:52:06 CDT Tu Landeros MD [facility] CPT-15168 Level 3 Est. Patient 13:58:11 CDT Tu Landeros MD [facility] CPT-27950 Level 3 Est. Patient 17:50:07 CDT Fab Morales DO [facility] CPT-81874 Level 3 Est. Patient 12:06:29 CDT Elvira Cervantes MD [facility] CPT-91635 Level 3 Est. Patient 15:50:32 CDT Tu Landeros MD [facility] CPT-04004 Level 4 Est. Patient 16:08:29 CDT Tu Landeros MD [facility] CPT-75956 Level 3 Est. Patient 16:04:19 CDT Tu Landeros MD [facility] CPT-35727 Level 3 Est. Patient 11:22:30 TILE MOLDER HAND Tu Landeros MD [facility] CPT-41333 Level 4 Est. Patient 16:24:02 TILE MOLDER HAND Tu Landeros MD [facility] CPT-08550 Level 3 Est. Patient 17:21:23 TILE MOLDER HAND Tu Landeros MD [facility] Procedures Code Procedure Name Date Entry Date Standard Description CPT-75841 Postop F/U Visit 10:02:45 CDT CPT-LR Lesion Removal 09:02:56 CDT CPT-JTINJ Asp/Joint Injection 15:51:27 TILE MOLDER HAND CPT-OV Office Visit 15:52:02 TILE MOLDER HAND CPT-OV Office Visit 15:45:11 CDT CPT-000 Give Zostavax 14:09:06 CDT CPT-92239 Administration single or combination vaccine inc oral 15 :19:04 CDT CPT-58432 Zoster Vaccine (Zostavax) 15:19:04 CDT CPT-94045 Administration single or combination vaccine inc oral 20 :51:03 CDT CPT-87116 Influenza split virus > age 3 20:51:03 CDT CPT-64127 No Charge Offi Visit 14:52:03 CDT CPT-OV Office Visit 14:57:43 CDT CPT-OV Office Visit 15:22:32 CDT CPT-32123 Administration single or combination vaccine inc oral 11 :33:15 CDT CPT-83897 Influenza split virus > age 3 11:33:15 CDT
--- OUTSIDE RECORDS SUMMARY | 2018-04-25 14:39 | XMS REPORT | Clinical Summary ---
Author Author Admin, SACHI Organization [employer] Address Unknown Phone Unavailable Allergies, Adverse Reactions, [...] SCIATICA ICD-724.3 Inactive Tu Landeros MD 2012 ARTHRITIS ICD-716.90 Inactive Tu Landeros MD KNEE PAIN ICD-719.46 Inactive Tu Landeros MD FATIGUE ICD-780.79 Tessa [...] left, acute ICD-719.46 Inactive Tu Landeros MD PRESSURE ULCER UNSPECIFIED SITE ICD-707.00 Inactive Tu Landeros MD ONYCHOMYCOSIS ICD-110.1 Inactive Tu Landeros MD Ear pain, bilateral ICD-388.70 Inactive Tu Landeros MD Sebaceous cyst ICD-706.2 Inactive Tu Landeros MD Upper respiratory infection, viral ICD-465.9 Inactive Tu Landeros MD Sinusitis - acute ICD-461.9 Inactive Tu Landeros MD Leg pain, left ICD-729.5 Inactive Tu Landeros MD Hot flashes ICD-627.2 Inactive Tu Landeros MD Osteoarthritis ICD-715.90 Tessa Landeros MD Vision impairment, both eyes, impairment level not further specified ICD- 369.20 Tessa Landeros MD Medication List Medication Instructions Start Date Stop Date Generic Name NDC Status Provider Patient Instruction CYCLOBENZAPRINE HCL 10 MG ORAL TABS 1 po TID PRN Muscle Spasm CYCLOBENZAPRINE HCL 76768120263 Active Tu Landeros MD Active DICLOFENAC SODIUM 50 MG ORAL TBEC 1 po BID PRN Pain DICLOFENAC SODIUM 18425564338 Delores Landeros MD Active INVOKANA 100 MG ORAL TABS 1 po qd CANAGLIFLOZIN 11921473937 Active Tu Landeros MD Active GLIPIZIDE 5 MG ORAL TABS 1 po qd GLIPIZIDE 17439656667 No Longer Active Tu Landeros MD Active VENLAFAXINE HCL 75 MG ORAL TABS 1 po BID VENLAFAXINE HCL 82757445713 Active Tu Landeros MD Active GLIMEPIRIDE 1 MG ORAL TABS 1 po qd GLIMEPIRIDE 73568160761 No Longer Active Tu Landeros MD Active TRUE METRIX BLOOD GLUCOSE TEST INVITR STRP Test blood sugar BID Dx: E11.9 GLUCOSE BLOOD 48193508473 Active Tu Landeros MD Active TRUE METRIX AIR GLUCOSE METER W/DEVICE KIT Test blood glucose BID Dx: E11.9 BLOOD GLUCOSE MONITORING SUPPL 33952962734 Active Tu Landeros MD Active TRUETEST TEST INVITR STRP test blood sugar twice daily. DX 250.0 GLUCOSE BLOOD 97319497285 No Longer Active Mirna Stanley LPN Active TRUEDRAW LANCING DEVICE MISC test blood sugar twice daily dx: 250.00 LANCET DEVICES 75128236639 No Longer Active Mirna Stanley LPN Active ENALAPRIL MALEATE 20 MG TABS 2 po qd ENALAPRIL MALEATE 65716415627 Active Lesli Kellogg APRN Active SUPER B COMPLEX/VITAMIN C TABS 1 qd B COMPLEX-C 21251271694 No Longer Active Tu Landeros MD Active ASPIRIN EC 81 MG ORAL TBEC 1 po qd ASPIRIN 32606077109 Active Tu Landeros MD Active GLUCOSAMINE 500 MG TABS 2 po qd GLUCOSAMINE Active Tu Landeros MD Active SIMVASTATIN 40 MG TABS 0.5 po qHS SIMVASTATIN 80493060496 Active Tu Landeros MD Active FISH OIL 1000 MG CAPS 1 po qd OMEGA-3 FATTY ACIDS 35834404758 Active Tu Landeros MD Active METFORMIN HCL 1000 MG TABS 1 po BID METFORMIN HCL 03163298297 Active Tu Landeros MD Active KLOR-CON 10 10 MEQ CR-TABS 2 po qd POTASSIUM CHLORIDE 81603523681 Active Tu Landeros MD Active FUROSEMIDE 40 MG TAB 1 po qd FUROSEMIDE 81507104046 Active Tu Landeros MD Active REQUIP 2 MG ORAL TABS 1 po qHS PRN Restless legs ROPINIROLE HCL 85948304363 Active Tu Landeros MD Active GABAPENTIN 100 MG CAPS 1 po BID GABAPENTIN 08118774029 Active Tu Landeros MD Active REQUIP 2 MG TABS Take one tablet at bedtime prn ROPINIROLE HCL 71764531629 No Longer Active Tu Landeros MD Active VENTOLIN HFA 108 (90 BASE) MCG/ACT AERS 1-2 puffs every 4 hours if needed for cough/congestion ALBUTEROL SULFATE 92590982114 No Longer Active Ambika Aden APRN Active ZITHROMAX 250 MG TAB 2 po today, then 1 po q days 2-5 AZITHROMYCIN 11071877925 No Longer Active Miranda Suresh APRN Active FLONASE 50 MCG/ACT SUSP 1 spray each nostril twice daily until bottle empty FLUTICASONE PROPIONATE 15955752162 No Longer Active Tu Landeros MD Active COLACE 100 MG CAP 1 po BID PRN Constipation DOCUSATE SODIUM 24998469622 Active Tu Landeros MD Active TRUERESULT BLOOD GLUCOSE W/DEVICE KIT test blood sugar twice daily dx 250.00 BLOOD GLUCOSE MONITORING SUPPL 63992141874 No Longer Active Tu Landeros MD Active TRUEDRAW LANCING DEVICE MISC Test twice a day dx 250.0 LANCET DEVICES 28756144129 No Longer Active Tu Landeros MD Active PREDNISONE 20 MG TAB 2 tablets once daily for 2 days, then 1 tablet once daily for 2 days PREDNISONE 19769415343 No Longer Active Tu Landeros MD Active DICLOFENAC SODIUM 50 MG TBEC 1 tablet by mouth three times a day as needed DICLOFENAC SODIUM 59396114140 No Longer Active Fab Morales DO Active EMBRACE BLOOD GLUCOSE TEST STRP test blood sugar twice daily DX 250.0 2014 GLUCOSE BLOOD 21322407985 No Longer Active Tu Landeros MD Active TRUETEST TEST STRP test blood sugar three times daily dx: 250.00 GLUCOSE BLOOD 30200124992 No Longer Active Suze Nicole RMA Active TRUERESULT BLOOD GLUCOSE W/DEVICE KIT use to test blood sugar tid dx: 250.00 BLOOD GLUCOSE MONITORING SUPPL 32719397886 No Longer Active Suze Corey RMA Active ALIGN 4 MG CAPS 1 tid PROBIOTIC PRODUCT 44812265468 No Longer Active Shaun Sy MD Active CIPRO 500 MG TABS 1 bid x 14 days start 09-28-13 CIPROFLOXACIN HCL 11932897921 No Longer Active Shaun Sy MD Active TRAMADOL HCL 50 MG TABS 1-2 tablets every 6 hours as needed for pain TRAMADOL HCL 29525400538 Active Tu Landeros MD Active HYDROCODONE-ACETAMINOPHEN 5-325 MG TABS 1 tab by mouth every 6 hours as needed for pain HYDROCODONE-ACETAMINOPHEN 96382415411 No Longer Active Tu Landeros MD Active OMEPRAZOLE 20 MG CPDR 1 po q a.m. OMEPRAZOLE 22550518038 Active Fab Morales DO Active GABAPENTIN 100 MG CAPS 1 po bid GABAPENTIN 17581881466 No Longer Active Tu Landeros MD Active B-12 100 MCG TABS Take one by mouth daily CYANOCOBALAMIN 88157112379 No Longer Active Tu Landeros MD Active BACTRIM DS 800-160 MG TABS 1 bid x 14 day start 09-28-13 SULFAMETHOXAZOLE-TRIMETHOPRIM 01679554289 No Longer Active Tu Landeros MD Active CARVEDILOL 12.5 MG TABS 1 po BID CARVEDILOL 47204803600 Active Lesli Kellogg APRN Active TRILIPIX 135 MG CPDR 1 q hs CHOLINE FENOFIBRATE 66491216816 Active Tu Landeros MD Active FENOFIBRATE 145 MG TABS 1 po qd FENOFIBRATE 97737915987 No Longer Active JASPREET Perez Active OMEPRAZOLE 20 MG TBEC 1 PO 30 MIN BEFORE 1ST MEAL OMEPRAZOLE 96387645777 No Longer Active JASPREET Perez Active SIMVASTATIN 40 MG TABS Take one by mouth daily SIMVASTATIN 08149295049 No Longer Active JASPREET Perez Active VENLAFAXINE HCL 75 MG TABS 1 po BID VENLAFAXINE HCL 91626887803 No Longer Active JASPREET Perez Active CIPRO 500 MG TAB 1 tablet by mouth twice daily CIPROFLOXACIN HCL 78869637663 No Longer Active Tu Landeros MD Active VENLAFAXINE HCL 37.5 MG TABS 1 po BID VENLAFAXINE HCL 44117778806 No Longer Active Suzebianca Nicole [facility] Active LAMISIL 250 MG TAB 1 po qd TERBINAFINE HCL 81945668718 No Longer Active Tu Landeros MD Active LORTAB 5 5-500 MG TABS 1/2 to 1 tablet by mouth every 4 hours as needed for pain HYDROCODONE-ACETAMINOPHEN 31673441524 No Longer Active Tu Landeros MD Active HYDROCODONE-ACETAMINOPHEN 5-500 MG TABS take one po Q 4-6 hours prn HYDROCODONE-ACETAMINOPHEN 97069217102 No Longer Active Tu Landeros MD Active BACTRIM DS 800-160 MG TABS 1 po BID x 7 days SULFAMETHOXAZOLE-TRIMETHOPRIM 53851371381 No Longer Active Tu Landeros MD Active VENLAFAXINE HCL 75 MG TABS 1 po BID VENLAFAXINE HCL 42869094583 No Longer Active Elvira Cervantes MD PhD Active TRAMADOL HCL 50 MG TABS 1 tablets every 6 hours as needed for pain TRAMADOL HCL 50227437417 No Longer Active Tu Landeros MD Active ACCU-CHEK FASTCLIX LANCETS MISC Use to check bloodsugar three times daily as needed LANCETS 65270232960 No Longer Active Tu Landeros MD Active ACCU-CHEK KEYONA PLUS STRP Use for testing bloodsugars three times daily as needed GLUCOSE BLOOD 56950950164 No Longer Active Tu Landeros MD Active ACCU-CHEK KEYONA PLUS W/DEVICE KIT Use for testing bloodsugars three times daily as needed BLOOD GLUCOSE MONITORING SUPPL 70303416786 No Longer Active Tu Landeros MD Active SPIRONOLACTONE 25 MG TAB 0.5 tablet by mouth daily SPIRONOLACTONE 46616983955 No Longer Active Tu Landeros MD Active ALPRAZOLAM 0.5 MG TABS 1 tab every 6hrs as needed ALPRAZOLAM 42973245210 No Longer Active Tu Landeros MD Active AUGMENTIN 875-125 MG TAB 1 tab by mouth twice daily with food AMOXICILLIN-POT CLAVULANATE 85249352935 No Longer Active Tu Landeros MD Active PREDNISONE 20 MG TAB 2 tabs daily for 3 days, 1 tab daily for 3 days, 1/2 tab daily for 2 days PREDNISONE 50697242916 No Longer Active Tu Landeros MD Active XANAX 0.5 MG TABS 1 tablet every 6 hrs prn ALPRAZOLAM 96452294410 No Longer Active Tu Landeros MD Active PREDNISONE 20 MG TAB 2 tabs daily for 3 days, 1 tab daily for 3 days, 1/2 tab daily for 2 days PREDNISONE 51450608379 No Longer Active Tu Landeros MD Active TRIAMCINOLONE ACETONIDE 0.1 % OINT Apply to affected areas TID for up to 2 weeks TRIAMCINOLONE ACETONIDE 80818182571 No Longer Active Tu Landeros MD Active LORTAB 5 5-500 MG TABS 1/2 to 1 tablet by mouth every 4 hours as needed for pain HYDROCODONE-ACETAMINOPHEN 50755748060 No Longer Active Tu Landeros MD Active MULTIVITAMINS TABS Take one by mouth daily MULTIPLE VITAMIN 74316362396 No Longer Active Tu Landeros MD Active MELATONIN 5 MG TABS Take one by mouth daily MELATONIN 73328954987 No Longer Active Tu Landeros MD Active SOMA 350 MG TAB 1 po q 6 hours prn spasm CARISOPRODOL 76380111435 No Longer Active Tu Landeros MD Active MECLIZINE HCL 25 MG CHEW TAB 1 four times a day as needed for dizziness 08/05 MECLIZINE HCL 34260050052 No Longer Active Fab Morales DO Active ANGEL BREEZE 2 TEST DISK test tid prn GLUCOSE BLOOD 22076978114 No Longer Active Negra Scott RN Active REGLAN 10 MG TAB 1 po TID PRN Nausea METOCLOPRAMIDE HCL 85089500580 No Longer Active Tu Landeros MD Active METFORMIN HCL 500 MG TABS 1 PO BID METFORMIN HCL 92992946782 No Longer Active Tu Landeros MD Active AMBIEN 10 MG TAB 1 tab by mouth at bedtime as needed for sleep ZOLPIDEM TARTRATE 86177715496 No Longer Active Tu Landeros MD Active FLUOXETINE HCL 40 MG CAPS 1 po q day FLUOXETINE HCL 77282086935 No Longer Active Mayra Halls Active TRILIPIX 135 MG CPDR 1 po qd CHOLINE FENOFIBRATE 63725896173 No Longer Active Tu Landeros MD Active AMBIEN 10 MG TAB 1 tab by mouth at bedtime as needed for sleep AMBIEN 10 MG TAB 001715 ZOLPIDEM TARTRATE Inactive METFORMIN HCL 500 MG TABS 1 PO BID METFORMIN HCL 500 MG TABS 544875 METFORMIN HCL Inactive REGLAN 10 MG TAB 1 po TID PRN Nausea REGLAN 10 MG TAB 522945 METOCLOPRAMIDE HCL Inactive MECLIZINE HCL 25 MG CHEW TAB 1 four times a day as needed for dizziness 08/05 MECLIZINE HCL 25 MG CHEW TAB 542360 MECLIZINE HCL Inactive SOMA 350 MG TAB 1 po q 6 hours prn spasm SOMA 350 MG TAB 039159 CARISOPRODOL Inactive MELATONIN 5 MG TABS Take one by mouth daily MELATONIN 5 MG TABS 554276 MELATONIN Inactive MULTIVITAMINS TABS Take one by mouth daily MULTIVITAMINS TABS MULTIPLE VITAMIN Inactive LORTAB 5 5-500 MG TABS 1/2 to 1 tablet by mouth every 4 hours as needed for pain LORTAB 5 5-500 MG TABS HYDROCODONE- ACETAMINOPHEN Inactive XANAX 0.5 MG TABS 1 tablet every 6 hrs prn XANAX 0.5 MG TABS 482436 ALPRAZOLAM Inactive AUGMENTIN 875-125 MG TAB 1 tab by mouth twice daily with food AUGMENTIN 875-125 MG TAB 204144 AMOXICILLIN-POT CLAVULANATE Inactive ALPRAZOLAM 0.5 MG TABS 1 tab every 6hrs as needed ALPRAZOLAM 0.5 MG TABS 423452 ALPRAZOLAM Inactive SPIRONOLACTONE 25 MG TAB 0.5 tablet by mouth daily SPIRONOLACTONE 25 MG TAB 864316 SPIRONOLACTONE Inactive ACCU-CHEK KEYONA PLUS W/DEVICE KIT Use for testing bloodsugars three times daily as needed ACCU-CHEK KEYONA PLUS W/DEVICE KIT BLOOD GLUCOSE MONITORING SUPPL Inactive ACCU-CHEK KEYONA PLUS STRP Use for testing bloodsugars three times daily as needed ACCU-CHEK KEYONA PLUS STRP GLUCOSE BLOOD Inactive ACCU-CHEK FASTCLIX LANCETS MISC Use to check bloodsugar three times daily as needed ACCU-CHEK FASTCLIX LANCETS MISC 02263175123 [facility] Inactive TRAMADOL HCL 50 MG TABS 1 tablets every 6 hours as needed for pain TRAMADOL HCL 50 MG TABS 052673 TRAMADOL HCL Inactive VENLAFAXINE HCL 75 MG TABS 1 po BID VENLAFAXINE HCL 75 MG TABS 653172 VENLAFAXINE HCL Inactive HYDROCODONE-ACETAMINOPHEN 5-500 MG TABS take one po Q 4-6 hours prn HYDROCODONE-ACETAMINOPHEN 5-500 MG TABS HYDROCODONE- ACETAMINOPHEN Inactive LORTAB 5 5-500 MG TABS 1/2 to 1 tablet by mouth every 4 hours as needed for pain LORTAB 5 5-500 MG TABS HYDROCODONE- ACETAMINOPHEN Inactive LAMISIL 250 MG TAB 1 po qd LAMISIL 250 MG TAB 176654 TERBINAFINE HCL Inactive VENLAFAXINE HCL 37.5 MG TABS 1 po BID VENLAFAXINE HCL 37.5 MG TABS 705868 VENLAFAXINE HCL Inactive CIPRO 500 MG TAB 1 tablet by mouth twice daily CIPRO 500 MG TAB 715158 CIPROFLOXACIN HCL Inactive VENLAFAXINE HCL 75 MG TABS 1 po BID VENLAFAXINE HCL 75 MG TABS 900889 VENLAFAXINE HCL Inactive SIMVASTATIN 40 MG TABS Take one by mouth daily SIMVASTATIN 40 MG TABS 222103 SIMVASTATIN Inactive OMEPRAZOLE 20 MG TBEC 1 PO 30 MIN BEFORE 1ST MEAL OMEPRAZOLE 20 MG TBEC 949147 OMEPRAZOLE Inactive FENOFIBRATE 145 MG TABS 1 po qd FENOFIBRATE 145 MG TABS 173276 FENOFIBRATE Inactive BACTRIM DS 800-160 MG TABS 1 bid x 14 day start 09-28-13 BACTRIM DS 800-160 MG TABS 841082 SULFAMETHOXAZOLE-TRIMETHOPRIM Inactive B-12 100 MCG TABS Take one by mouth daily B-12 100 MCG TABS CYANOCOBALAMIN Inactive GABAPENTIN 100 MG CAPS 1 po bid GABAPENTIN 100 MG CAPS 216564 GABAPENTIN Inactive HYDROCODONE-ACETAMINOPHEN 5-325 MG TABS 1 tab by mouth every 6 hours as needed for pain HYDROCODONE-ACETAMINOPHEN 5-325 MG TABS 991201 HYDROCODONE-ACETAMINOPHEN Inactive CIPRO 500 MG TABS 1 bid x 14 days start 09-28-13 CIPRO 500 MG TABS 350100 CIPROFLOXACIN HCL Inactive ALIGN 4 MG CAPS [...] as needed DICLOFENAC SODIUM 50 MG TBEC 082117 DICLOFENAC SODIUM Inactive PREDNISONE 20 MG TAB 2 tablets once daily for 2 days, then 1 tablet once daily for 2 days PREDNISONE 20 MG TAB 364018 PREDNISONE Inactive TRUEDRAW LANCING DEVICE MISC Test twice a day dx 250.0 TRUEDRAW LANCING DEVICE MISC LANCET DEVICES Inactive TRUERESULT BLOOD GLUCOSE W/DEVICE KIT test blood sugar twice daily dx 250.00 TRUERESULT BLOOD GLUCOSE W/DEVICE KIT BLOOD GLUCOSE MONITORING SUPPL Inactive FLONASE 50 MCG/ACT SUSP 1 spray each nostril twice daily until bottle empty FLONASE 50 MCG/ACT SUSP 0639061 FLUTICASONE PROPIONATE Inactive VENTOLIN HFA 108 (90 BASE) MCG/ACT AERS 1-2 puffs every 4 hours if needed for cough/congestion VENTOLIN HFA 108 (90 BASE) MCG/ACT AERS ALBUTEROL SULFATE Inactive REQUIP 2 MG TABS Take one tablet at bedtime prn REQUIP 2 MG TABS 839634 ROPINIROLE HCL Inactive SUPER B COMPLEX/VITAMIN C TABS 1 qd SUPER B COMPLEX/ VITAMIN C TABS 64118853181 B COMPLEX-C Inactive TRUEDRAW LANCING DEVICE MISC test blood sugar twice daily dx: 250.00 TRUEDRAW LANCING DEVICE MISC LANCET DEVICES Inactive TRUETEST TEST INVITR STRP test blood sugar twice daily. DX 250.0 TRUETEST TEST INVITR STRP GLUCOSE BLOOD Inactive TRIAMCINOLONE ACETONIDE 0.1 % OINT Apply to affected areas TID for up to 2 weeks TRIAMCINOLONE ACETONIDE 0.1 % OINT 0233104 TRIAMCINOLONE ACETONIDE Inactive PREDNISONE 20 MG TAB 2 tabs daily for 3 days, 1 tab daily for 3 days, 1/2 tab daily for 2 days PREDNISONE 20 MG TAB 389414 PREDNISONE Inactive PREDNISONE 20 MG TAB 2 tabs daily for 3 days, 1 tab daily for 3 days, 1/2 tab daily for 2 days PREDNISONE 20 MG TAB 687825 PREDNISONE Inactive BACTRIM DS 800-160 MG TABS 1 po BID x 7 days BACTRIM DS 800-160 MG TABS 916149 SULFAMETHOXAZOLE-TRIMETHOPRIM Inactive ZITHROMAX 250 MG TAB 2 po today, then 1 po q days 2-5 ZITHROMAX 250 MG TAB 6481691 AZITHROMYCIN Inactive Advance Directives Directive Description Start Date DISCUSSED WITH PATIENT -- NO DECISION MADE Immunizations Vaccine Administration Date Value Standard Description Seasonal influenza vaccine, injectable, containing preservative, for > 3 years old (Afluria, FluLaval, Fluzone, Fluvirin, Fluarix, Agriflu(>=18 yo)) Fluzone (>3 yrs.) [[id number]] Influenza, seasonal, injectable influenza immunization (Flu Vax) has been administered 02/22/2012 influenza virus vaccine, unspecified formulation Seasonal influenza vaccine, injectable, containing preservative, for > 3 years old (Afluria, FluLaval, Fluzone, Fluvirin, Fluarix, Agriflu(>=18 yo)) Fluzone (>3 yrs.) [[id number]] Influenza, seasonal, injectable Vital Signs Date Name [...] Magnesium - Chemistry sodium, serum 143 mmol/L 573-274 0964/01/10 creatinine, serum 1.06 mg/dL 0.55-1.30 alanine aminotransferase (SGPT), serum 42 U/L 12-78 aspartate aminotransferase (SGOT), serum 32 U/L 15-37 calcium, serum 9.3 mg/dL 8.5-10.1 bilirubin, serum, total 0.20 mg/dL 0.00-1.00 cholesterol, serum 177 mg/dL 204-722 7771/01/10 triglyceride, serum, fasting 320 mg/dL 30-200 HDL cholesterol, serum 46 mg/dL 32-96 LDL cholesterol, serum 67 mg/dL 0-130 carbon dioxide, venous blood 28.0 mmol/L 21.0-32.0 potassium, serum 4.5 mmol/L 3.5-5.2 chloride, serum 104 mmol/L 98-107 blood glucose 158 mg/dL 65-110 urea nitrogen, blood 23 mg/dL 7-18 Lab Report: COMPREHENSIVE METABOLIC PANEL, LIPID PANEL, HEMOGLOBIN A1c - Chemistry cholesterol, serum 135 mg/dL 620-248 2355/05/17 HDL cholesterol, serum 41 mg/dL > OR=46 [...] 4.3 mmol/L 3.5-5.2 sodium, serum 140 mmol/L 718-705 9379/09/07 hemoglobin A1C, blood, as % of total hemoglobin 7.4 % 4.3-6.0 Lab Report: MicroAlb Random w/creat/6517 - Urinalysis microalbumin/total urine volume 21 mg/L Units converted. See lab report for original value. microalbumin/creatinine ratio, urine 11 MCG/MG CREAT mg/L <30 Encounters Code Encounter Date Provider Facility CPT-45746 Level 3 Est. Patient 13:33:09 CDT Tu Landeros MD [facility] CPT-50506 Level 4 Est. Patient 14:29:21 CDT Tu Landeros MD [facility] CPT-48713 Level 4 Est. Patient 09:08:17 TALENT ACQUISITION LEAD Tu Landeros MD [facility] CPT-27559 Level 4 Est. Patient 14:40:19 CDT Tu Landeros MD [facility] CPT-62155 Level 4 Est. Patient 14:06:04 TALENT ACQUISITION LEAD Tu Landeros MD [facility] CPT-53168 Level 3 Est. Patient 14:05:18 TALENT ACQUISITION LEAD Tu Landeros MD [facility] CPT-27491 Level 3 Est. Patient 10:06:54 TALENT ACQUISITION LEAD Miranda Suresh APRN [facility] CPT-26772 Level 4 Est. Patient 13:50:18 TALENT ACQUISITION LEAD Tu Landeros MD [facility] CPT-96425 Level 3 Est. Patient 10:30:04 CDT Tu Landeros MD [facility] CPT-35263 Level 4 Est. Patient 11:03:38 CDT Tu Landeros MD [facility] CPT-38262 Level 3 Est. Patient 10:20:44 CDT Fab Morales DO [facility] CPT-44070 Level 4 Est. Patient 14:38:57 CDT Tu Landeros MD [facility] CPT-25727 Level 4 Est. Patient 14:27:39 TALENT ACQUISITION LEAD Tu Landeros MD [facility] CPT-53518 Level 4 Est. Patient 09:45:25 CDT Tu Landeros MD [facility] CPT-64419 Level 4 Est. Patient 09:05:20 TALENT ACQUISITION LEAD Tu Landeros MD [facility] CPT-76984 Level 4 Est. Patient 14:09:06 CDT Tu Landeros MD [facility] CPT-15947 Level 3 Est. Patient 13:36:54 CDT Tu Landeros MD [facility] CPT-58126 Level 3 Est. Patient 08:59:14 CDT Tu Landeros MD [facility] CPT-87413 Level 3 Est. Patient 13:48:35 CDT Fab Morales DO [facility] CPT-23424 Level 4 Est. Patient 10:05:48 CDT Tu Landeros MD [facility] CPT-50663 Level 3 Est. Patient 13:38:42 CDT Marek BANKS [facility] CPT-47697 Level 5 Est. Patient 08:08:39 CDT Jerrica FRANCIS [facility] CPT-01165 Level 4 Est. Patient 14:23:38 CDT Tu Landeros MD [facility] CPT-07855 Level 3 Est. Patient 11:44:04 CDT Tu Landeros MD [facility] CPT-51231 Level 3 Est. Patient 11:03:20 TALENT ACQUISITION LEAD Tu Landeros MD [facility] CPT-17456 Level 3 Est. Patient 11:03:14 TALENT ACQUISITION LEAD Tu Landeros MD [facility] CPT-81875 Level 3 Est. Patient 12:42:49 CDT Tu Landeros MD [facility] CPT-48280 Level 3 Est. Patient 11:52:06 CDT Tu Landeros MD [facility] CPT-18561 Level 3 Est. Patient 13:58:11 CDT Tu Landeros MD [facility] CPT-99906 Level 3 Est. Patient 17:50:07 CDT Fab Morales DO [facility] CPT-34160 Level 3 Est. Patient 12:06:29 CDT Elvira Cervantes MD [facility] CPT-83787 Level 3 Est. Patient 15:50:32 CDT Tu Landeros MD [facility] CPT-23149 Level 4 Est. Patient 16:08:29 CDT Tu Landeros MD [facility] CPT-31037 Level 3 Est. Patient 16:04:19 CDT Tu Landeros MD [facility] CPT-02103 Level 3 Est. Patient 11:22:30 TALENT ACQUISITION LEAD Tu Landeros MD [facility] CPT-35930 Level 4 Est. Patient 16:24:02 TALENT ACQUISITION LEAD Tu Landeros MD [facility] CPT-27882 Level 3 Est. Patient 17:21:23 TALENT ACQUISITION LEAD Tu Landeros MD [facility] Procedures Code Procedure Name Date Entry Date Standard Description CPT-93383 Shoulder, right, comp min 2V - XRAY USE ONLY 13:50:22 CDT CPT-G0009 Administration of Pneumococcal Vaccine 15:08:26 CDT CPT-19384 Prevnar 13 Intramuscular Suspension 15:08:26 CDT 10/08 CPT-G0439 [facility] Annual Wellness Exam 14:29:22 CDT CPT-77265 Venipuncture Draw Fee 13:15:35 CDT CPT-35126 Magnesium - LAB USE ONLY 11:14:20 TALENT ACQUISITION LEAD CPT-87109 Lipid - LAB USE ONLY 11:14:20 TALENT ACQUISITION LEAD CPT-54964 HGBA1C - LAB USE ONLY 11:14:20 TALENT ACQUISITION LEAD CPT-50116 CMP - LAB USE ONLY 11:14:19 TALENT ACQUISITION LEAD CPT-09274 CBC - LAB USE ONLY 11:14:19 TALENT ACQUISITION LEAD CPT-07850 Venipuncture Draw Fee 11:14:18 TALENT ACQUISITION LEAD CPT-45788 First Vx - Ix admin for Medicare patients 16:46:52 CDT CPT-41531 Fluzone Preservative Free Intramuscular Suspension 16:46 :51 CDT CPT-54491 CBC - LAB USE ONLY 17:14:46 CDT CPT-10780 HGBA1C - LAB USE ONLY 17:14:46 CDT CPT-29301 Venipuncture Draw Fee 17:14:46 CDT CPT-G0438 Initial Annual Wellness Exam 14:13:04 CDT CPT-30170 Breathing Tx 10:06:54 TALENT ACQUISITION LEAD CPT-77657 Postop F/U Visit 10:02:45 CDT CPT-LR Lesion Removal 09:02:56 CDT CPT-JTINJ Asp/Joint Injection 15:51:27 TALENT ACQUISITION LEAD CPT-OV Office Visit 15:52:02 TALENT ACQUISITION LEAD CPT-OV Office Visit 15:45:11 CDT CPT-000 Give Zostavax 14:09:06 CDT CPT-61709 Administration single or combination vaccine inc oral 15 :19:04 CDT CPT-33618 Zoster Vaccine (Zostavax) 15:19:04 CDT CPT-75890 Administration single or combination vaccine inc oral 20 :51:03 CDT CPT-67327 Influenza split virus > age 3 20:51:03 CDT CPT-94989 No Charge Offi Visit 14:52:03 CDT CPT-OV Office Visit 14:57:43 CDT CPT-OV Office Visit 15:22:32 CDT CPT-14343 Administration single or combination vaccine inc oral 11 :33:15 CDT CPT-04774 Influenza split virus > age 3 11:33:15 CDT
--- OUTSIDE RECORDS SUMMARY | 2018-04-25 14:41 | XMS REPORT | Clinical Summary ---
Author Author Admin, SACHI Clemons [facility] Address Unknown Phone Unavailable Allergies, Adverse [...] FATIGUE ICD-780.79 Inactive Tu Landeros MD 2012 BENIGN PAROXYSMAL POSITIONAL VERTIGO ICD-386.11 Inactive Tu Landeros MD LEG CRAMPS, NOCTURNAL ICD-729.82 Inactive Tu Landeros MD KNEE PAIN ICD-719.46 Inactive Tu Landeros MD CONTUSION OF UNSPECIFIED SITE ICD-924.9 Inactive Tu Landeros MD CARPAL TUNNEL SYNDROME ICD-354.0 Inactive Tu Landeros MD LOCALIZED SUPERFICIAL SWELLING MASS OR LUMP ICD-782.2 Inactive Tu Landeros MD ONYCHOMYCOSIS ICD-110.1 Inactive Tu Landeros MD ARTHRITIS ICD-716.90 Inactive Tu Landeros MD Upper respiratory infection, [...] TABS 0.5 tab daily at bedtime SIMVASTATIN 20523122202 Active Tu Landeros MD Active TRUERESULT BLOOD GLUCOSE W/DEVICE KIT test blood sugar twice daily dx 250.00 BLOOD GLUCOSE MONITORING SUPPL 66750068785 No Longer Active Tu Landeros MD Active TRUEDRAW LANCING DEVICE MISC Test twice a day dx 250.0 LANCET DEVICES 61545170475 No Longer Active Tu Landeros MD Active PREDNISONE 20 MG TAB 2 tablets once daily for 2 days, then 1 tablet once daily for 2 days PREDNISONE 68428810556 No Longer Active Tu Landeros MD Active FLONASE 50 MCG/ACT SUSP 1 spray each nostril twice daily until bottle empty FLUTICASONE PROPIONATE 63529292038 Active Fab Morales DO Active DICLOFENAC SODIUM 50 MG TBEC 1 tablet by mouth three times a day as needed DICLOFENAC SODIUM 18551519853 No Longer Active Fab Morales DO Active METFORMIN HCL 850 MG TABS 1 tablet by mouth twice daily METFORMIN HCL 17220521793 Active Tu Landeros MD Active TRUEDRAW LANCING DEVICE MISC test blood sugar twice daily dx: 250.00 LANCET DEVICES 87100594014 Active Tu Landeros MD Active TRUETEST TEST INVITR STRP test blood sugar twice daily. DX 250.0 GLUCOSE BLOOD 17330953271 Active Tu Landeros MD Active EMBRACE BLOOD GLUCOSE TEST STRP test blood sugar twice daily DX 250.0 2014 GLUCOSE BLOOD 64190359142 No Longer Active Tu Landeros MD Active TRUETEST TEST STRP test blood sugar three times daily dx: 250.00 GLUCOSE BLOOD 51052997780 No Longer Active Suzebianca Nicole RMA Active TRUERESULT BLOOD GLUCOSE W/DEVICE KIT use to test blood sugar tid dx: 250.00 BLOOD GLUCOSE MONITORING SUPPL 47824441519 No Longer Active Suze Corey RMA Active ALIGN 4 MG CAPS 1 tid PROBIOTIC PRODUCT 32487709477 No Longer Active Shaun Sy MD Active CIPRO 500 MG TABS 1 bid x 14 days start 09-28-13 CIPROFLOXACIN HCL 87273295889 No Longer Active Shaun Sy MD Active TRAMADOL HCL 50 MG TABS 1-2 tablets every 6 hours as needed for pain TRAMADOL HCL 36075785359 Active Tu Landeros MD Active HYDROCODONE-ACETAMINOPHEN 5-325 MG TABS 1 tab by mouth every 6 hours as needed for pain HYDROCODONE-ACETAMINOPHEN 14756850860 No Longer Active Tu Landeros MD Active OMEPRAZOLE 20 MG CPDR 1 po q a.m. OMEPRAZOLE 98490805191 Active Elvira Cervantes MD PhD Active GABAPENTIN 100 MG CAPS 1 po bid GABAPENTIN 32535974397 No Longer Active Tu Landeros MD Active B-12 100 MCG TABS Take one by mouth daily CYANOCOBALAMIN 26599054093 No Longer Active Tu Landeros MD Active GABAPENTIN 100 MG CAPS by mouth twice a day GABAPENTIN 55591983099 Active Tu Landeros MD Active BACTRIM DS 800-160 MG TABS 1 bid x 14 day start 09-28-13 SULFAMETHOXAZOLE-TRIMETHOPRIM 79087921079 No Longer Active Tu Landeros MD Active CARVEDILOL 12.5 MG TABS 1 po BID CARVEDILOL 87419173953 Active Tu Landeros MD Active SUPER B COMPLEX/VITAMIN C TABS 1 qd B COMPLEX-C 33323798100 Active JASPREET Perez Active TRILIPIX 135 MG CPDR 1 q hs CHOLINE FENOFIBRATE 41132791017 Active Tu Landeros MD Active FENOFIBRATE 145 MG TABS 1 po qd FENOFIBRATE 73990904817 No Longer Active JASPREET Perez Active OMEPRAZOLE 20 MG TBEC 1 PO 30 MIN BEFORE 1ST MEAL OMEPRAZOLE 02838229142 No Longer Active JASPREET Perez Active SIMVASTATIN 40 MG TABS Take one by mouth daily SIMVASTATIN 84221399448 No Longer Active JASPREET Perez Active VENLAFAXINE HCL 37.5 MG TABS 1 bid VENLAFAXINE HCL 90005756934 Active Tu Landeros MD Active VENLAFAXINE HCL 75 MG TABS 1 po BID VENLAFAXINE HCL 73545913444 No Longer Active JASPREET Perez Active CIPRO 500 MG TAB 1 tablet by mouth twice daily CIPROFLOXACIN HCL 87122276593 No Longer Active Tu Landeros MD Active VENLAFAXINE HCL 37.5 MG TABS 1 po BID VENLAFAXINE HCL 69078357961 No Longer Active Suze Corey RMA Active CVS STOOL SOFTENER 100 MG CAPS 1 tab daily DOCUSATE SODIUM 68458632256 Active Tu Landeros MD Active LAMISIL 250 MG TAB 1 po qd TERBINAFINE HCL 35237610884 No Longer Active Tu Landeros MD Active LORTAB 5 5-500 MG TABS 1/2 to 1 tablet by mouth every 4 hours as needed for pain HYDROCODONE-ACETAMINOPHEN 77211239674 No Longer Active Tu Landeros MD Active ENALAPRIL MALEATE 20 MG TABS 1.5 po qd ENALAPRIL MALEATE 20338403936 Active Tu Landeros MD Active HYDROCODONE-ACETAMINOPHEN 5-500 MG TABS take one po Q 4-6 hours prn HYDROCODONE-ACETAMINOPHEN 05863324574 No Longer Active Tu Landeros MD Active BACTRIM DS 800-160 MG TABS 1 po BID x 7 days SULFAMETHOXAZOLE-TRIMETHOPRIM 06931308192 No Longer Active Tu Landeros MD Active VENLAFAXINE HCL 75 MG TABS 1 po BID VENLAFAXINE HCL 44333156031 No Longer Active Elvira Cervantes MD PhD Active TRAMADOL HCL 50 MG TABS 1 tablets every 6 hours as needed for pain TRAMADOL HCL 98504679471 No Longer Active Tu Landeros MD Active ACCU-CHEK FASTCLIX LANCETS MISC Use to check bloodsugar three times daily as needed LANCETS 42526445622 No Longer Active Tu Landeros MD Active ACCU-CHEK KEYONA PLUS STRP Use for testing bloodsugars three times daily as needed GLUCOSE BLOOD 97105365324 No Longer Active Tu Landeros MD Active ACCU-CHEK KEYONA PLUS W/DEVICE KIT Use for testing bloodsugars three times daily as needed BLOOD GLUCOSE MONITORING SUPPL 67371457078 No Longer Active Tu Landeros MD Active SPIRONOLACTONE 25 MG TAB 0.5 tablet by mouth daily SPIRONOLACTONE 73796833766 No Longer Active Tu Landeros MD Active ALPRAZOLAM 0.5 MG TABS 1 tab every 6hrs as needed ALPRAZOLAM 47020746109 No Longer Active Tu Landeros MD Active AUGMENTIN 875-125 MG TAB 1 tab by mouth twice daily with food AMOXICILLIN-POT CLAVULANATE 47209786373 No Longer Active Tu Landeros MD Active PREDNISONE 20 MG TAB 2 tabs daily for 3 days, 1 tab daily for 3 days, 1/2 tab daily for 2 days PREDNISONE 68783368566 No Longer Active Tu Landeros MD Active XANAX 0.5 MG TABS 1 tablet every 6 hrs prn ALPRAZOLAM 47108231909 No Longer Active Tu Landeros MD Active PREDNISONE 20 MG TAB 2 tabs daily for 3 days, 1 tab daily for 3 days, 1/2 tab daily for 2 days PREDNISONE 19029133670 No Longer Active Tu Landeros MD Active TRIAMCINOLONE ACETONIDE 0.1 % OINT Apply to affected areas TID for up to 2 weeks TRIAMCINOLONE ACETONIDE 29897268333 No Longer Active Tu Landeros MD Active LORTAB 5 5-500 MG TABS 1/2 to 1 tablet by mouth every 4 hours as needed for pain HYDROCODONE-ACETAMINOPHEN 14177972763 No Longer Active Tu Landeros MD Active MULTIVITAMINS TABS Take one by mouth daily MULTIPLE VITAMIN 61471043658 No Longer Active Tu Landeros MD Active MELATONIN 5 MG TABS Take one by mouth daily MELATONIN 76359459487 No Longer Active Tu Landeros MD Active SOMA 350 MG TAB 1 po q 6 hours prn spasm CARISOPRODOL 44873959208 No Longer Active Tu Landeros MD Active MECLIZINE HCL 25 MG CHEW TAB 1 four times a day as needed for dizziness 08/05 MECLIZINE HCL 50152428331 No Longer Active Fab Morales DO Active ANGEL NIKKOEZE 2 TEST DISK test tid prn GLUCOSE BLOOD 74155930894 No Longer Active Negra Scott RN Active REGLAN 10 MG TAB 1 po TID PRN Nausea METOCLOPRAMIDE HCL 01837923855 No Longer Active Tu Landeros MD Active METFORMIN HCL 500 MG TABS 1 PO BID METFORMIN HCL 91571269362 No Longer Active Tu Landeros MD Active AMBIEN 10 MG TAB 1 tab by mouth at bedtime as needed for sleep ZOLPIDEM TARTRATE 01536127181 No Longer Active Tu Landeros MD Active FLUOXETINE HCL 40 MG CAPS 1 po q day FLUOXETINE HCL 38149754876 No Longer Active Mayra [place] Active FISH OIL 1000 MG CAPS Take one by mouth daily OMEGA-3 FATTY ACIDS 15436156830 Active Tu Landeros MD Active GLUCOSAMINE 500 MG TABS Take 2 tab po qd GLUCOSAMINE 37678620964 Active Tu Landeros MD Active TRILIPIX 135 MG CPDR 1 po qd CHOLINE FENOFIBRATE 45126547859 No Longer Active Tu Landeros MD Active ASPIRIN 81 MG CHEW TAB 1 tablet by mouth daily ASPIRIN 43538979946 Active Tu Landeros MD Active FUROSEMIDE 40 MG TAB 1 tablet by mouth daily FUROSEMIDE 60776435218 Active Tu Landeros MD Active REQUIP 2 MG TABS Take one tablet at bedtime prn ROPINIROLE HCL 41779904228 Active Tu Landeros MD Active KLOR-CON 10 10 MEQ CR-TABS TAKE 2 TABS DAILY POTASSIUM CHLORIDE 45231663744 Active Tu Landeros MD Active AMBIEN 10 MG TAB 1 tab by mouth at bedtime as needed for sleep AMBIEN 10 MG TAB 969045 ZOLPIDEM TARTRATE Inactive METFORMIN HCL 500 MG TABS 1 PO BID METFORMIN HCL 500 MG TABS 709018 METFORMIN HCL Inactive REGLAN 10 MG TAB 1 po TID PRN Nausea REGLAN 10 MG TAB 847178 METOCLOPRAMIDE HCL Inactive MECLIZINE HCL 25 MG CHEW TAB 1 four times a day as needed for dizziness 08/05 MECLIZINE HCL 25 MG CHEW TAB 091073 MECLIZINE HCL Inactive SOMA 350 MG TAB 1 po q 6 hours prn spasm SOMA 350 MG TAB 224742 CARISOPRODOL Inactive MELATONIN 5 MG TABS Take one by mouth daily MELATONIN 5 MG TABS 073227 MELATONIN Inactive MULTIVITAMINS TABS Take one by mouth daily MULTIVITAMINS TABS MULTIPLE VITAMIN Inactive LORTAB 5 5-500 MG TABS 1/2 to 1 tablet by mouth every 4 hours as needed for pain LORTAB 5 5-500 MG TABS HYDROCODONE- ACETAMINOPHEN Inactive XANAX 0.5 MG TABS 1 tablet every 6 hrs prn XANAX 0.5 MG TABS 958069 ALPRAZOLAM Inactive AUGMENTIN 875-125 MG TAB 1 tab by mouth twice daily with food AUGMENTIN 875-125 MG TAB 212264 AMOXICILLIN-POT CLAVULANATE Inactive ALPRAZOLAM 0.5 MG TABS 1 tab every 6hrs as needed ALPRAZOLAM 0.5 MG TABS 904864 ALPRAZOLAM Inactive SPIRONOLACTONE 25 MG TAB 0.5 tablet by mouth daily SPIRONOLACTONE 25 MG TAB 513376 SPIRONOLACTONE Inactive ACCU-CHEK KEYONA PLUS W/DEVICE KIT Use for testing bloodsugars three times daily as needed ACCU-CHEK KEYONA PLUS W/DEVICE KIT BLOOD GLUCOSE MONITORING SUPPL Inactive ACCU-CHEK KEYONA PLUS STRP Use for testing bloodsugars three times daily as needed ACCU-CHEK KEYONA PLUS STRP GLUCOSE BLOOD Inactive ACCU-CHEK FASTCLIX LANCETS MISC Use to check bloodsugar three times daily as needed ACCU-CHEK FASTCLIX LANCETS MISC 94247668382 LANCETS Inactive TRAMADOL HCL 50 MG TABS 1 tablets every 6 hours as needed for pain TRAMADOL HCL 50 MG TABS 745081 TRAMADOL HCL Inactive VENLAFAXINE HCL 75 MG TABS 1 po BID VENLAFAXINE HCL 75 MG TABS 681598 VENLAFAXINE HCL Inactive HYDROCODONE-ACETAMINOPHEN 5-500 MG TABS take one po Q 4-6 hours prn HYDROCODONE-ACETAMINOPHEN 5-500 MG TABS HYDROCODONE- ACETAMINOPHEN Inactive LORTAB 5 5-500 MG TABS 1/2 to 1 tablet by mouth every 4 hours as needed for pain LORTAB 5 5-500 MG TABS HYDROCODONE- ACETAMINOPHEN Inactive LAMISIL 250 MG TAB 1 po qd LAMISIL 250 MG TAB 041754 TERBINAFINE HCL Inactive VENLAFAXINE HCL 37.5 MG TABS 1 po BID VENLAFAXINE HCL 37.5 MG TABS 306493 VENLAFAXINE HCL Inactive CIPRO 500 MG TAB 1 tablet by mouth twice daily CIPRO 500 MG TAB 905338 CIPROFLOXACIN HCL Inactive VENLAFAXINE HCL 75 MG TABS 1 po BID VENLAFAXINE HCL 75 MG TABS 553738 VENLAFAXINE HCL Inactive SIMVASTATIN 40 MG TABS Take one by mouth daily SIMVASTATIN 40 MG TABS 061011 SIMVASTATIN Inactive OMEPRAZOLE 20 MG TBEC 1 PO 30 MIN BEFORE 1ST MEAL OMEPRAZOLE 20 MG TBEC 660246 OMEPRAZOLE Inactive FENOFIBRATE 145 MG TABS 1 po qd FENOFIBRATE 145 MG TABS 637598 FENOFIBRATE Inactive BACTRIM DS 800-160 MG TABS 1 bid x 14 day start 09-28-13 BACTRIM DS 800-160 MG TABS SULFAMETHOXAZOLE-TRIMETHOPRIM Inactive B-12 100 MCG TABS Take one by mouth daily B-12 100 MCG TABS CYANOCOBALAMIN Inactive GABAPENTIN 100 MG CAPS 1 po bid GABAPENTIN 100 MG CAPS 399439 GABAPENTIN Inactive HYDROCODONE-ACETAMINOPHEN 5-325 MG TABS 1 tab by mouth every 6 hours as needed for pain HYDROCODONE-ACETAMINOPHEN 5-325 MG TABS 791936 HYDROCODONE-ACETAMINOPHEN Inactive CIPRO 500 MG TABS 1 bid x 14 days start -814 CIPRO 500 MG TABS 296651 CIPROFLOXACIN HCL Inactive ALIGN 4 MG CAPS [...] as needed DICLOFENAC SODIUM 50 MG TBEC 296148 DICLOFENAC SODIUM Inactive PREDNISONE 20 MG TAB 2 tablets once daily for 2 days, then 1 tablet once daily for 2 days PREDNISONE 20 MG TAB 726071 PREDNISONE Inactive TRUEDRAW LANCING DEVICE MISC Test twice a day dx 250.0 TRUEDRAW LANCING DEVICE MISC LANCET DEVICES Inactive TRUERESULT BLOOD GLUCOSE W/DEVICE KIT test blood sugar twice daily dx 250.00 TRUERESULT BLOOD GLUCOSE W/DEVICE KIT BLOOD GLUCOSE MONITORING SUPPL Inactive TRIAMCINOLONE ACETONIDE 0.1 % OINT Apply to affected areas TID for up to 2 weeks TRIAMCINOLONE ACETONIDE 0.1 % OINT 4522100 TRIAMCINOLONE ACETONIDE Inactive PREDNISONE 20 MG TAB 2 tabs daily for 3 days, 1 tab daily for 3 days, 1/2 tab daily for 2 days PREDNISONE 20 MG TAB 783559 PREDNISONE Inactive PREDNISONE 20 MG TAB 2 tabs daily for 3 days, 1 tab daily for 3 days, 1/2 tab daily for 2 days PREDNISONE 20 MG TAB 695260 PREDNISONE Inactive BACTRIM DS 800-160 MG TABS 1 po BID x 7 days BACTRIM DS 800-160 MG TABS SULFAMETHOXAZOLE-TRIMETHOPRIM Inactive Immunizations Vaccine Administration Date Value Standard Description Seasonal influenza vaccine, injectable, containing preservative, for > 3 years old (Afluria, FluLaval, Fluzone, Fluvirin, Fluarix, Agriflu(>=18 yo)) Fluzone (>3 yrs.) [[id number]] Influenza, seasonal, injectable influenza immunization (Flu Vax) has been administered 02/22/2012 influenza virus vaccine, unspecified formulation Seasonal influenza vaccine, injectable, containing preservative, for > 3 years old (Afluria, FluLaval, Fluzone, Fluvirin, Fluarix, Agriflu(>=18 yo)) Fluzone (>3 yrs.) [[id number]] Influenza, seasonal, injectable Vital Signs Date Name [...] CBC - Chemistry sodium, serum 143 mmol/L 621-541 3827/03/10 potassium, serum 4.9 mmol/L 3.5-5.2 chloride, serum [...] 0.30 mg/dL 0.00-1.00 cholesterol, serum 111 mg/dL 036-221 2146/07/28 triglyceride, serum, fasting 177 mg/dL 30-200 HDL [...] mg/dL Encounters Code Encounter Date Provider Facility CPT-11944 Level 4 Est. Patient 11:03:38 CDT Tu Landeros MD [facility] CPT-14015 Level 3 Est. Patient 10:20:44 CDT Fab Morales DO [facility] CPT-31376 Level 4 Est. Patient 14:38:57 CDT Tu Landeros MD [facility] CPT-56107 Level 4 Est. Patient 14:27:39 SALES SUPPORT ASSOCIATE Tu Landeros MD [facility] CPT-29969 Level 4 Est. Patient 09:45:25 CDT Tu Landeros MD [facility] CPT-74868 Level 4 Est. Patient 09:05:20 SALES SUPPORT ASSOCIATE Tu Landeros MD [facility] CPT-01613 Level 4 Est. Patient 14:09:06 CDT Tu Landeros MD [facility] CPT-88946 Level 3 Est. Patient 13:36:54 CDT Tu Landeros MD [facility] CPT-19454 Level 3 Est. Patient 08:59:14 CDT Tu Landeros MD [facility] CPT-80899 Level 3 Est. Patient 13:48:35 CDT Fab Morales DO [facility] CPT-65594 Level 4 Est. Patient 10:05:48 CDT Tu Landeros MD [facility] CPT-87633 Level 3 Est. Patient 13:38:42 CDT Marek BANKS [facility] CPT-69308 Level 5 Est. Patient 08:08:39 CDT Jerrica FRANCIS [facility] CPT-76729 Level 4 Est. Patient 14:23:38 CDT Tu Landeros MD [facility] CPT-01442 Level 3 Est. Patient 11:44:04 CDT Tu Landeros MD [facility] CPT-24789 Level 3 Est. Patient 11:03:20 SALES SUPPORT ASSOCIATE Tu Landeros MD [facility] CPT-73057 Level 3 Est. Patient 11:03:14 SALES SUPPORT ASSOCIATE Tu Landeros MD [facility] CPT-90917 Level 3 Est. Patient 12:42:49 CDT Tu Landeros MD [facility] CPT-41387 Level 3 Est. Patient 11:52:06 CDT Tu Landeros MD [facility] CPT-27903 Level 3 Est. Patient 13:58:11 CDT Tu Landeros MD [facility] CPT-91187 Level 3 Est. Patient 17:50:07 CDT Fab Morales DO [facility] CPT-02183 Level 3 Est. Patient 12:06:29 CDT Elvira Cervantes MD PhD [facility] CPT-43868 Level 3 Est. Patient 15:50:32 CDT Tu Landeros MD [facility] CPT-18870 Level 4 Est. Patient 16:08:29 CDT Tu Landeros MD [facility] CPT-13179 Level 3 Est. Patient 16:04:19 CDT Tu Landeros MD [facility] CPT-47900 Level 3 Est. Patient 11:22:30 SALES SUPPORT ASSOCIATE Tu Landeros MD [facility] CPT-49825 Level 4 Est. Patient 16:24:02 SALES SUPPORT ASSOCIATE Tu Landeros MD [facility] CPT-99601 Level 3 Est. Patient 17:21:23 SALES SUPPORT ASSOCIATE Tu Landeros MD [facility] Procedures Code Procedure Name Date Entry Date Standard Description [id number]-[id number] Asp/Joint Injection 15:51:27 SALES SUPPORT ASSOCIATE CPT-OV Office Visit 15:52:02 SALES SUPPORT ASSOCIATE CPT-OV Office Visit 15:45:11 CDT CPT-000 Give Zostavax 14:09:06 CDT CPT-57218 Administration single or combination vaccine inc oral 15 :19:04 CDT CPT-86260 Zoster Vaccine (Zostavax) 15:19:04 CDT CPT-44786 Administration single or combination vaccine inc oral 20 :51:03 CDT CPT-81163 Influenza split virus > age 3 20:51:03 CDT CPT-10468 No Charge Offi Visit 14:52:03 CDT CPT-OV Office Visit 14:57:43 CDT CPT-OV Office Visit 15:22:32 CDT CPT-39004 Administration single or combination vaccine inc oral 11 :33:15 CDT CPT-57121 Influenza split virus > age 3 11:33:15 CDT
--- OUTSIDE RECORDS SUMMARY | 2018-04-25 14:42 | XMS REPORT | Clinical Summary ---
Author Author Admin, SACHI Organization [employer] Address Unknown Phone Unavailable Allergies, Adverse Reactions, [...] not further specified 369.20 Active Ambika Markie [employer] Moderate or severe vision impairment, both eyes, [...] hours if needed for cough/congestion ALBUTEROL SULFATE 43768990647 No Longer Active Ambika Aden APRN Active ZITHROMAX 250 MG TAB 2 po today, then 1 po q days 2-5 AZITHROMYCIN 77034448702 No Longer Active Miranda Suresh APRN Active METFORMIN HCL 1000 MG TABS 1 tablet by mouth twice daily METFORMIN HCL 95934830202 Active Tu Landeros MD Active FLONASE 50 MCG/ACT SUSP 1 spray each nostril twice daily until bottle empty FLUTICASONE PROPIONATE 15097996735 No Longer Active Tu Landeros MD Active COLACE 100 MG CAP 1 po BID PRN Constipation DOCUSATE SODIUM 15331044428 Active Tu Landeros MD Active SIMVASTATIN 40 MG TABS 0.5 tab daily at bedtime SIMVASTATIN 12725087107 Active Tu Landeros MD Active TRUERESULT BLOOD GLUCOSE W/DEVICE KIT test blood sugar twice daily dx 250.00 BLOOD GLUCOSE MONITORING SUPPL 59333017563 No Longer Active Tu Landeros MD Active TRUEDRAW LANCING DEVICE MISC Test twice a day dx 250.0 LANCET DEVICES 92457766391 No Longer Active Tu Landeros MD Active PREDNISONE 20 MG TAB 2 tablets once daily for 2 days, then 1 tablet once daily for 2 days PREDNISONE 42421219383 No Longer Active Tu Landeros MD Active DICLOFENAC SODIUM 50 MG TBEC 1 tablet by mouth three times a day as needed DICLOFENAC SODIUM 01180543514 No Longer Active Fab Morales DO Active TRUEDRAW LANCING DEVICE MISC test blood sugar twice daily dx: 250.00 LANCET DEVICES 08545011047 Active Tu Landeros MD Active TRUETEST TEST INVITR STRP test blood sugar twice daily. DX 250.0 GLUCOSE BLOOD 51561611489 Active Tu Landeros MD Active EMBRACE BLOOD GLUCOSE TEST STRP test blood sugar twice daily DX 250.0 2014 GLUCOSE BLOOD 63177220688 No Longer Active Tu Landeros MD Active TRUETEST TEST STRP test blood sugar three times daily dx: 250.00 GLUCOSE BLOOD 30872078060 No Longer Active Suzebianca VOGEL Active TRUERESULT BLOOD GLUCOSE W/DEVICE KIT use to test blood sugar tid dx: 250.00 BLOOD GLUCOSE MONITORING SUPPL 65226388323 No Longer Active Suze Corey RMA Active ALIGN 4 MG CAPS 1 tid PROBIOTIC PRODUCT 68207696341 No Longer Active Shaun Sy MD Active CIPRO 500 MG TABS 1 bid x 14 days start 09-28-13 CIPROFLOXACIN HCL 40257393916 No Longer Active Shaun Sy MD Active TRAMADOL HCL 50 MG TABS 1-2 tablets every 6 hours as needed for pain TRAMADOL HCL 62530068334 Active Tu Landeros MD Active HYDROCODONE-ACETAMINOPHEN 5-325 MG TABS 1 tab by mouth every 6 hours as needed for pain HYDROCODONE-ACETAMINOPHEN 18901399355 No Longer Active Tu Landeros MD Active OMEPRAZOLE 20 MG CPDR 1 po q a.m. OMEPRAZOLE 60722736749 Active Tu Landeros MD Active GABAPENTIN 100 MG CAPS 1 po bid GABAPENTIN 90993365137 No Longer Active Tu Landeros MD Active B-12 100 MCG TABS Take one by mouth daily CYANOCOBALAMIN 37395640425 No Longer Active Tu Landeros MD Active GABAPENTIN 100 MG CAPS by mouth twice a day GABAPENTIN 97383169850 Active Tiffanie Doyle Active BACTRIM DS 800-160 MG TABS 1 bid x 14 day start 8-14 SULFAMETHOXAZOLE-TRIMETHOPRIM 20470355484 No Longer Active Tu Landeros MD Active CARVEDILOL 12.5 MG TABS 1 po BID CARVEDILOL 89077628426 Active Tu Landeros MD Active SUPER B COMPLEX/VITAMIN C TABS 1 qd B COMPLEX-C 06447075435 Active JASPREET Perez Active TRILIPIX 135 MG CPDR 1 q hs CHOLINE FENOFIBRATE 07916199129 Active Tu Landeros MD Active FENOFIBRATE 145 MG TABS 1 po qd FENOFIBRATE 68612684262 No Longer Active JASPREET Perez Active OMEPRAZOLE 20 MG TBEC 1 PO 30 MIN BEFORE 1ST MEAL OMEPRAZOLE 86766235347 No Longer Active JASPREET Perez Active SIMVASTATIN 40 MG TABS Take one by mouth daily SIMVASTATIN 20741044679 No Longer Active JASPREET Perez Active VENLAFAXINE HCL 37.5 MG TABS 1 bid VENLAFAXINE HCL 22646491366 Active Tu Landeros MD Active VENLAFAXINE HCL 75 MG TABS 1 po BID VENLAFAXINE HCL 92807153724 No Longer Active JASPREET Perez Active CIPRO 500 MG TAB 1 tablet by mouth twice daily CIPROFLOXACIN HCL 05498301933 No Longer Active Tu Landeros MD Active VENLAFAXINE HCL 37.5 MG TABS 1 po BID VENLAFAXINE HCL 08709329044 No Longer Active Suze Corey RMA Active LAMISIL 250 MG TAB 1 po qd TERBINAFINE HCL 29369920278 No Longer Active Tu Landeros MD Active LORTAB 5 5-500 MG TABS 1/2 to 1 tablet by mouth every 4 hours as needed for pain HYDROCODONE-ACETAMINOPHEN 80040572363 No Longer Active Tu Landeros MD Active ENALAPRIL MALEATE 20 MG TABS 1.5 po qd ENALAPRIL MALEATE 54575284838 Active Tu Landeros MD Active HYDROCODONE-ACETAMINOPHEN 5-500 MG TABS take one po Q 4-6 hours prn HYDROCODONE-ACETAMINOPHEN 28006734775 No Longer Active Tu Landeros MD Active BACTRIM DS 800-160 MG TABS 1 po BID x 7 days SULFAMETHOXAZOLE-TRIMETHOPRIM 77810744768 No Longer Active Tu Landeros MD Active VENLAFAXINE HCL 75 MG TABS 1 po BID VENLAFAXINE HCL 86287270869 No Longer Active Elvira Cervantes MD PhD Active TRAMADOL HCL 50 MG TABS 1 tablets every 6 hours as needed for pain TRAMADOL HCL 50178131421 No Longer Active Tu Landeros MD Active ACCU-CHEK FASTCLIX LANCETS MISC Use to check bloodsugar three times daily as needed LANCETS 20652308138 No Longer Active Tu Landeros MD Active ACCU-CHEK KEYONA PLUS STRP Use for testing bloodsugars three times daily as needed GLUCOSE BLOOD 83050332751 No Longer Active Tu Landeros MD Active ACCU-CHEK KEYONA PLUS W/DEVICE KIT Use for testing bloodsugars three times daily as needed BLOOD GLUCOSE MONITORING SUPPL 39905944061 No Longer Active Tu Landeros MD Active SPIRONOLACTONE 25 MG TAB 0.5 tablet by mouth daily SPIRONOLACTONE 05719774581 No Longer Active Tu Landeros MD Active ALPRAZOLAM 0.5 MG TABS 1 tab every 6hrs as needed ALPRAZOLAM 43548852831 No Longer Active Tu Landeros MD Active AUGMENTIN 875-125 MG TAB 1 tab by mouth twice daily with food AMOXICILLIN-POT CLAVULANATE 17794810591 No Longer Active Tu Landeros MD Active PREDNISONE 20 MG TAB 2 tabs daily for 3 days, 1 tab daily for 3 days, 1/2 tab daily for 2 days PREDNISONE 81011350512 No Longer Active Tu Landeros MD Active XANAX 0.5 MG TABS 1 tablet every 6 hrs prn ALPRAZOLAM 31385757261 No Longer Active Tu Landeros MD Active PREDNISONE 20 MG TAB 2 tabs daily for 3 days, 1 tab daily for 3 days, 1/2 tab daily for 2 days PREDNISONE 30697746742 No Longer Active Tu Landeros MD Active TRIAMCINOLONE ACETONIDE 0.1 % OINT Apply to affected areas TID for up to 2 weeks TRIAMCINOLONE ACETONIDE 64917650170 No Longer Active Tu Landeros MD Active LORTAB 5 5-500 MG TABS 1/2 to 1 tablet by mouth every 4 hours as needed for pain HYDROCODONE-ACETAMINOPHEN 56226155896 No Longer Active Tu Landeros MD Active MULTIVITAMINS TABS Take one by mouth daily MULTIPLE VITAMIN 59939400892 No Longer Active Tu Landeros MD Active MELATONIN 5 MG TABS Take one by mouth daily MELATONIN 08148761447 No Longer Active Tu Landeros MD Active SOMA 350 MG TAB 1 po q 6 hours prn spasm CARISOPRODOL 25780870766 No Longer Active Tu Landeros MD Active MECLIZINE HCL 25 MG CHEW TAB 1 four times a day as needed for dizziness 08/05 MECLIZINE HCL 08284465246 No Longer Active Fab Morales DO Active ANGEL BREEZE 2 TEST DISK test tid prn GLUCOSE BLOOD 58803430358 No Longer Active Negra Scott RN Active REGLAN 10 MG TAB 1 po TID PRN [place] METOCLOPRAMIDE HCL 54196771010 No Longer Active Tu Landeros MD Active METFORMIN HCL 500 MG TABS 1 PO BID METFORMIN HCL 93669530381 No Longer Active Tu Landeros MD Active AMBIEN 10 MG TAB 1 tab by mouth at bedtime as needed for sleep ZOLPIDEM TARTRATE 50981725630 No Longer Active Tu Landeros MD Active FLUOXETINE HCL 40 MG CAPS 1 po q day FLUOXETINE HCL 25715467900 No Longer Active Mayra Terry Active FISH OIL 1000 MG CAPS Take one by mouth daily OMEGA-3 FATTY ACIDS 29439957540 Active Tu Landeros MD Active GLUCOSAMINE 500 MG TABS Take 2 tab po qd GLUCOSAMINE 81235076367 Active uT Landeros MD Active TRILIPIX 135 MG CPDR 1 po qd CHOLINE FENOFIBRATE 49037276634 No Longer Active Tu Landeros MD Active ASPIRIN 81 MG CHEW TAB 1 tablet by mouth daily ASPIRIN 17470720237 Active Tu Landeros MD Active FUROSEMIDE 40 MG TAB 1 tablet by mouth daily FUROSEMIDE 49785371362 Active Tu Landeros MD Active REQUIP 2 MG TABS Take one tablet at bedtime prn ROPINIROLE HCL 04282461166 Active Tu Landeros MD Active KLOR-CON 10 10 MEQ CR-TABS TAKE 2 TABS DAILY POTASSIUM CHLORIDE 16278649626 Active Tu Landeros MD Active AMBIEN 10 MG TAB 1 tab by mouth at bedtime as needed for sleep AMBIEN 10 MG TAB 506858 ZOLPIDEM TARTRATE Inactive METFORMIN HCL 500 MG TABS 1 PO BID METFORMIN HCL 500 MG TABS 053819 METFORMIN HCL Inactive REGLAN 10 MG TAB 1 po TID PRN Nausea REGLAN 10 MG TAB 383599 METOCLOPRAMIDE HCL Inactive MECLIZINE HCL 25 MG CHEW TAB 1 four times a day as needed for dizziness 08/05 MECLIZINE HCL 25 MG CHEW TAB 611227 MECLIZINE HCL Inactive SOMA 350 MG TAB 1 po q 6 hours prn spasm SOMA 350 MG TAB 992446 CARISOPRODOL Inactive MELATONIN 5 MG TABS Take one by mouth daily MELATONIN 5 MG TABS 897241 MELATONIN Inactive MULTIVITAMINS TABS Take one by mouth daily MULTIVITAMINS TABS MULTIPLE VITAMIN Inactive LORTAB 5 5-500 MG TABS 1/2 to 1 tablet by mouth every 4 hours as needed for pain LORTAB 5 5-500 MG TABS HYDROCODONE- ACETAMINOPHEN Inactive XANAX 0.5 MG TABS 1 tablet every 6 hrs prn XANAX 0.5 MG TABS 421381 ALPRAZOLAM Inactive AUGMENTIN 875-125 MG TAB 1 tab by mouth twice daily with food AUGMENTIN 875-125 MG TAB 599982 AMOXICILLIN-POT CLAVULANATE Inactive ALPRAZOLAM 0.5 MG TABS 1 tab every 6hrs as needed ALPRAZOLAM 0.5 MG TABS 579661 ALPRAZOLAM Inactive SPIRONOLACTONE 25 MG TAB 0.5 tablet by mouth daily SPIRONOLACTONE 25 MG TAB 354770 SPIRONOLACTONE Inactive ACCU-CHEK KEYONA PLUS W/DEVICE KIT Use for testing bloodsugars three times daily as needed ACCU-CHEK KEYONA PLUS W/DEVICE KIT BLOOD GLUCOSE MONITORING SUPPL Inactive ACCU-CHEK KEYONA PLUS STRP Use for testing bloodsugars three times daily as needed ACCU-CHEK KEYONA PLUS STRP GLUCOSE BLOOD Inactive ACCU-CHEK FASTCLIX LANCETS MISC Use to check bloodsugar three times daily as needed ACCU-CHEK FASTCLIX LANCETS MISC 56852201019 LANCETS Inactive TRAMADOL HCL 50 MG TABS 1 tablets every 6 hours as needed for pain TRAMADOL HCL 50 MG TABS 789329 TRAMADOL HCL Inactive VENLAFAXINE HCL 75 MG TABS 1 po BID VENLAFAXINE HCL 75 MG TABS 040296 VENLAFAXINE HCL Inactive HYDROCODONE-ACETAMINOPHEN 5-500 MG TABS take one po Q 4-6 hours prn HYDROCODONE-ACETAMINOPHEN 5-500 MG TABS HYDROCODONE- ACETAMINOPHEN Inactive LORTAB 5 5-500 MG TABS 1/2 to 1 tablet by mouth every 4 hours as needed for pain LORTAB 5 5-500 MG TABS HYDROCODONE- ACETAMINOPHEN Inactive LAMISIL 250 MG TAB 1 po qd LAMISIL 250 MG TAB 465036 TERBINAFINE HCL Inactive VENLAFAXINE HCL 37.5 MG TABS 1 po BID VENLAFAXINE HCL 37.5 MG TABS 425869 VENLAFAXINE HCL Inactive CIPRO 500 MG TAB 1 tablet by mouth twice daily CIPRO 500 MG TAB 270200 CIPROFLOXACIN HCL Inactive VENLAFAXINE HCL 75 MG TABS 1 po BID VENLAFAXINE HCL 75 MG TABS 608580 VENLAFAXINE HCL Inactive SIMVASTATIN 40 MG TABS Take one by mouth daily SIMVASTATIN 40 MG TABS 751390 SIMVASTATIN Inactive OMEPRAZOLE 20 MG TBEC 1 PO 30 MIN BEFORE 1ST MEAL OMEPRAZOLE 20 MG TBEC 823705 OMEPRAZOLE Inactive FENOFIBRATE 145 MG TABS 1 po qd FENOFIBRATE 145 MG TABS 915424 FENOFIBRATE Inactive BACTRIM DS 800-160 MG TABS 1 bid x 14 day start 09-28-13 BACTRIM DS 800-160 MG TABS 751424 SULFAMETHOXAZOLE-TRIMETHOPRIM Inactive B-12 100 MCG TABS Take one by mouth daily B-12 100 MCG TABS CYANOCOBALAMIN Inactive GABAPENTIN 100 MG CAPS 1 po bid GABAPENTIN 100 MG CAPS 161656 GABAPENTIN Inactive HYDROCODONE-ACETAMINOPHEN 5-325 MG TABS 1 tab by mouth every 6 hours as needed for pain HYDROCODONE-ACETAMINOPHEN 5-325 MG TABS 798765 HYDROCODONE-ACETAMINOPHEN Inactive CIPRO 500 MG TABS 1 bid x 14 days start 09-28-13 CIPRO 500 MG TABS 264048 CIPROFLOXACIN HCL Inactive ALIGN 4 MG CAPS [...] as needed DICLOFENAC SODIUM 50 MG TBEC 149033 DICLOFENAC SODIUM Inactive PREDNISONE 20 MG TAB 2 tablets once daily for 2 days, then 1 tablet once daily for 2 days PREDNISONE 20 MG TAB 130769 PREDNISONE Inactive TRUEDRAW LANCING DEVICE MISC Test [...] 2 weeks TRIAMCINOLONE ACETONIDE 0.1 % OINT 8973794 TRIAMCINOLONE ACETONIDE Inactive PREDNISONE 20 MG TAB 2 tabs daily for 3 days, 1 tab daily for 3 days, 1/2 tab daily for 2 days PREDNISONE 20 MG TAB 589622 PREDNISONE Inactive PREDNISONE 20 MG TAB 2 tabs daily for 3 days, 1 tab daily for 3 days, 1/2 tab daily for 2 days PREDNISONE 20 MG TAB 143286 PREDNISONE Inactive BACTRIM DS 800-160 MG TABS 1 po BID x 7 days BACTRIM DS 800-160 MG TABS 500869 SULFAMETHOXAZOLE-TRIMETHOPRIM Inactive ZITHROMAX 250 MG TAB 2 po today, then 1 po q days 2-5 ZITHROMAX 250 MG TAB 4044563 AZITHROMYCIN Inactive Advance Directives Directive Description Start Date DISCUSSED WITH PATIENT -- NO DECISION MADE Immunizations Vaccine Administration Date Value Standard Description Seasonal influenza vaccine, injectable, containing preservative, for > 3 years old (Afluria, FluLaval, Fluzone, Fluvirin, Fluarix, Agriflu(>=18 yo)) Fluzone (>3 yrs.) [LDY034] Influenza, seasonal, injectable influenza immunization (Flu Vax) has been administered 02/22/2012 influenza virus vaccine, unspecified formulation Seasonal influenza vaccine, injectable, containing preservative, for > 3 years old (Afluria, FluLaval, Fluzone, Fluvirin, Fluarix, Agriflu(>=18 yo)) Fluzone (>3 yrs.) [EQG301] Influenza, seasonal, injectable Vital Signs Date Name [...] mg/g mg/g{creat} 0-29 sodium, serum 142 mmol/L 454-165 0727/10/08 potassium, serum 4.5 mmol/L 3.5-5.2 chloride, serum [...] 7.4 % 4.3-6.0 sodium, serum 140 mmol/L 218-582 3089/09/07 potassium, serum 4.3 mmol/L 3.5-5.2 chloride, serum 104 mmol/L 98-107 carbon dioxide, venous blood 27.7 mmol/L 21.0-32.0 blood glucose 156 mg/dL 65-110 calcium, serum 9.3 mg/dL 8.5-10.1 urea nitrogen, blood 23 mg/dL - creatinine, serum 1.21 mg/dL 0.55-1.30 hemoglobin A1C, blood, as % of total hemoglobin 7.7 % 4.3-6.0 Lab Report: Lipid Panel, Comp. Metabolic Panel - Chemistry cholesterol, serum 124 mg/dL 672-082 5208/01/12 triglyceride, serum, fasting 135 mg/dL 30-200 HDL cholesterol, serum 41 mg/dL 32-96 LDL cholesterol, serum 56 mg/dL 0-130 sodium, serum 140 mmol/L 837-654 3518/01/12 carbon dioxide, venous blood 27.7 mmol/L 21.0-32.0 potassium, serum 4.5 mmol/L 3.5-5.2 chloride, serum 104 mmol/L 98-107 blood glucose 139 mg/dL 65-110 urea nitrogen, blood 16 mg/dL 7-18 alanine aminotransferase (SGPT), serum 32 U/L 12-78 aspartate aminotransferase (SGOT), serum 25 U/L 15-37 calcium, serum 9.1 mg/dL 8.5-10.1 bilirubin, serum, total 0.50 mg/dL 0.00-1.00 Encounters Code Encounter Date Provider Facility CPT-77466 Level 4 Est. Patient 14:06:04 [employer] Tu Landeros MD [facility] CPT-60424 Level 3 Est. Patient 14:05:18 [employer] Tu Landeros MD [facility] CPT-97877 Level 3 Est. Patient 10:06:54 [employer] Miranda Suresh APRN [facility] CPT-66700 Level 4 Est. Patient 13:50:18 [employer] Tu Landeros MD [facility] CPT-51193 Level 3 Est. Patient 10:30:04 CDT Tu Landeros MD [facility] CPT-37479 Level 4 Est. Patient 11:03:38 CDT Tu Landeros MD [facility] CPT-63600 Level 3 Est. Patient 10:20:44 CDT Fab Morales DO [facility] CPT-17730 Level 4 Est. Patient 14:38:57 CDT Tu Landeros MD [facility] CPT-31213 Level 4 Est. Patient 14:27:39 [employer] Tu Landeros MD [facility] CPT-26246 Level 4 Est. Patient 09:45:25 CDT Tu Landeros MD [facility] CPT-67349 Level 4 Est. Patient 09:05:20 [employer] Tu Landeros MD [facility] CPT-02389 Level 4 Est. Patient 14:09:06 CDT Tu Landeros MD [facility] CPT-73181 Level 3 Est. Patient 13:36:54 CDT Tu Landeros MD [facility] CPT-38447 Level 3 Est. Patient 08:59:14 CDT Tu Landeros MD [facility] CPT-08702 Level 3 Est. Patient 13:48:35 CDT Fab Morales DO [facility] CPT-05889 Level 4 Est. Patient 10:05:48 CDT Tu Landeros MD [facility] CPT-25152 Level 3 Est. Patient 13:38:42 CDT Marek BANKS [facility] CPT-07359 Level 5 Est. Patient 08:08:39 CDT Jerrica Dawsontay FRANCIS [facility] CPT-23368 Level 4 Est. Patient 14:23:38 CDT Tu Landeros MD [facility] CPT-08789 Level 3 Est. Patient 11:44:04 CDT Tu Landeros MD [facility] CPT-10326 Level 3 Est. Patient 11:03:20 [employer] Tu Landeros MD [facility] CPT-35874 Level 3 Est. Patient 11:03:14 [employer] Tu Landeros MD [facility] CPT-68455 Level 3 Est. Patient 12:42:49 CDT Tu Landeros MD [facility] CPT-63925 Level 3 Est. Patient 11:52:06 CDT Tu Landeros MD [facility] CPT-35798 Level 3 Est. Patient 13:58:11 CDT Tu Landeros MD [facility] CPT-69025 Level 3 Est. Patient 17:50:07 CDT Fab Morales DO [facility] CPT-29253 Level 3 Est. Patient 12:06:29 CDT Elvira Cervantes MD PhD [facility] CPT-27611 Level 3 Est. Patient 15:50:32 CDT Tu Landeros MD [facility] CPT-15723 Level 4 Est. Patient 16:08:29 CDT Tu Landeros MD [facility] CPT-55247 Level 3 Est. Patient 16:04:19 CDT Tu Landeros MD [facility] CPT-32696 Level 3 Est. Patient 11:22:30 [employer] Tu Landeros MD [facility] CPT-13009 Level 4 Est. Patient 16:24:02 [employer] Tu Landeros MD [facility] CPT-69035 Level 3 Est. Patient 17:21:23 [employer] Tu Landeros MD [facility] Procedures Code Procedure Name Date Entry Date Standard Description CPT-G0438 Initial Annual Wellness Exam 14:13:04 CDT CPT-41832 Breathing Tx 10:06:54 [employer] CPT-81859 Postop F/U Visit 10:02:45 CDT CPT-LR Lesion Removal 09:02:56 CDT CPT-JTINJ Asp/Joint Injection 15:51:27 [employer] CPT-OV Office Visit 15:52:02 [employer] CPT-OV Office Visit 15:45:11 CDT CPT-000 Give Zostavax 14:09:06 CDT CPT-65602 Administration single or combination vaccine inc oral 15 :19:04 CDT CPT-59167 Zoster Vaccine (Zostavax) 15:19:04 CDT CPT-60167 Administration single or combination vaccine inc oral 20 :51:03 CDT CPT-49580 Influenza split virus > age 3 20:51:03 CDT CPT-39195 No Charge Offi Visit 14:52:03 CDT CPT-OV Office Visit 14:57:43 CDT CPT-OV Office Visit 15:22:32 CDT CPT-41266 Administration single or combination vaccine inc oral 11 :33:15 CDT CPT-54443 Influenza split virus > age 3 11:33:15 CDT
--- OUTSIDE RECORDS SUMMARY | 2018-04-25 14:43 | XMS REPORT | Clinical Summary ---
Author Author Admin, SACHI Organization [employer] Address Unknown Phone Unavailable Allergies, Adverse Reactions, Alerts Allergy Name Reaction Description Start Date Severity Status Provider DANIELLE migraine h/a Critical Active Luisa COOPEREIN migraine h/a Moderate No Longer Active Tu Landeros MD TRICOR rash, trouble breathing Critical Active Tu Landeros MD SULINDAC Critical Active Tu Landeros MD DOXYCYCLINE Critical Active uT Landeros MD KEFLEX Critical Active Tu Landeros [...] Cramp of limb FREQUENCY, URINARY 788.41 Correction Evlira Cervantes MD PhD Urinary frequency FEVER UNSPECIFIED [...] po qHS PRN Restless legs ROPINIROLE HCL 33149192958 Active Tu Landeros MD Active VENLAFAXINE HCL 37.5 MG TABS 1 po BID VENLAFAXINE HCL 21506222600 Active Tu Landeros MD Active GABAPENTIN 100 MG CAPS 1 po BID GABAPENTIN 72357469251 Active José Luis Becerra MD Active REQUIP 2 MG TABS Take one tablet at bedtime prn ROPINIROLE HCL 14589484975 No Longer Active Tu Landeros MD Active VENTOLIN HFA 108 (90 BASE) MCG/ACT AERS 1-2 puffs every 4 hours if needed for cough/congestion ALBUTEROL SULFATE 34241610658 No Longer Active Ambika Aden APRN Active ZITHROMAX 250 MG TAB 2 po today, then 1 po q days 2-5 AZITHROMYCIN 55654994467 No Longer Active Miranda Suresh APRN Active METFORMIN HCL 1000 MG TABS 1 tablet by mouth twice daily METFORMIN HCL 58526137868 Active Tu Landeros MD Active FLONASE 50 MCG/ACT SUSP 1 spray each nostril twice daily until bottle empty FLUTICASONE PROPIONATE 31210923260 No Longer Active Tu Landeros MD Active COLACE 100 MG CAP 1 po BID PRN Constipation DOCUSATE SODIUM 53008657032 Active Tu Landeros MD Active SIMVASTATIN 40 MG TABS 0.5 tab daily at bedtime SIMVASTATIN 46452112082 Active Tu Landeros MD Active TRUERESULT BLOOD GLUCOSE W/DEVICE KIT test blood sugar twice daily dx 250.00 BLOOD GLUCOSE MONITORING SUPPL 94569866280 No Longer Active Tu Landeros MD Active TRUEDRAW LANCING DEVICE MISC Test twice a day dx 250.0 LANCET DEVICES 47683555729 No Longer Active Tu Landeros MD Active PREDNISONE 20 MG TAB 2 tablets once daily for 2 days, then 1 tablet once daily for 2 days PREDNISONE 12960475187 No Longer Active Tu Landeros MD Active DICLOFENAC SODIUM 50 MG TBEC 1 tablet by mouth three times a day as needed DICLOFENAC SODIUM 90767747129 No Longer Active Fab Morales DO Active TRUEDRAW LANCING DEVICE MISC test blood sugar twice daily dx: 250.00 LANCET DEVICES 32322603495 Active Tu Landeros MD Active TRUETEST TEST INVITR STRP test blood sugar twice daily. DX 250.0 GLUCOSE BLOOD 01230254567 Active Tu Landeros MD Active EMBRACE BLOOD GLUCOSE TEST STRP test blood sugar twice daily DX 250.0 2014 GLUCOSE BLOOD 19062647503 No Longer Active Tu Landeros MD Active TRUETEST TEST STRP test blood sugar three times daily dx: 250.00 GLUCOSE BLOOD 05009878425 No Longer Active Suze VOGEL Active TRUERESULT BLOOD GLUCOSE W/DEVICE KIT use to test blood sugar tid dx: 250.00 BLOOD GLUCOSE MONITORING SUPPL 44248662722 No Longer Active Suze VOGEL Active ALIGN 4 MG CAPS 1 tid PROBIOTIC PRODUCT 52980389400 No Longer Active Shaun Sy MD Active CIPRO 500 MG TABS 1 bid x 14 days start 09-28-13 CIPROFLOXACIN HCL 05096518868 No Longer Active Shaun Sy MD Active TRAMADOL HCL 50 MG TABS 1-2 tablets every 6 hours as needed for pain TRAMADOL HCL 55667154391 Active Tu Landeros MD Active HYDROCODONE-ACETAMINOPHEN 5-325 MG TABS 1 tab by mouth every 6 hours as needed for pain HYDROCODONE-ACETAMINOPHEN 35981632847 No Longer Active Tu Landeros MD Active OMEPRAZOLE 20 MG CPDR 1 po q a.m. OMEPRAZOLE 89148142502 Active Tu Landeros MD Active GABAPENTIN 100 MG CAPS 1 po bid GABAPENTIN 01837044806 No Longer Active Tu Landeros MD Active B-12 100 MCG TABS Take one by mouth daily CYANOCOBALAMIN 08756258723 No Longer Active uT Landeros MD Active BACTRIM DS 800-160 MG TABS 1 bid x 14 day start 09-28-13 SULFAMETHOXAZOLE-TRIMETHOPRIM 54848649432 No Longer Active Tu Landeros MD Active CARVEDILOL 12.5 MG TABS 1 po BID CARVEDILOL 60874642915 Active Tu Landeros MD Active SUPER B COMPLEX/VITAMIN C TABS 1 qd B COMPLEX-C 90316995539 Active JASPREET Perez Active TRILIPIX 135 MG CPDR 1 q hs CHOLINE FENOFIBRATE 74458653166 Active Tu Landeros MD Active FENOFIBRATE 145 MG TABS 1 po qd FENOFIBRATE 03101208113 No Longer Active JASPREET Perez Active OMEPRAZOLE 20 MG TBEC 1 PO 30 MIN BEFORE 1ST MEAL OMEPRAZOLE 97884662346 No Longer Active JASPREET Perez Active SIMVASTATIN 40 MG TABS Take one by mouth daily SIMVASTATIN 58272790478 No Longer Active JASPREET Perez Active VENLAFAXINE HCL 75 MG TABS 1 po BID VENLAFAXINE HCL 98449426481 No Longer Active Gustavo JASPREET Green Active CIPRO 500 MG TAB 1 tablet by mouth twice daily CIPROFLOXACIN HCL 18012875040 No Longer Active Tu Landeros MD Active VENLAFAXINE HCL 37.5 MG TABS 1 po BID VENLAFAXINE HCL 40586506411 No Longer Active Suzebianca Nicole RMA Active LAMISIL 250 MG TAB 1 po qd TERBINAFINE HCL 00040793087 No Longer Active Tu Landeros MD Active LORTAB 5 5-500 MG TABS 1/2 to 1 tablet by mouth every 4 hours as needed for pain HYDROCODONE-ACETAMINOPHEN 45579930069 No Longer Active Tu Landeros MD Active ENALAPRIL MALEATE 20 MG TABS 1.5 po qd ENALAPRIL MALEATE 51054795456 Active Tu Landeros MD Active HYDROCODONE-ACETAMINOPHEN 5-500 MG TABS take one po Q 4-6 hours prn HYDROCODONE-ACETAMINOPHEN 63102777038 No Longer Active Tu Landeros MD Active BACTRIM DS 800-160 MG TABS 1 po BID x 7 days SULFAMETHOXAZOLE-TRIMETHOPRIM 01358197861 No Longer Active Tu Landeros MD Active VENLAFAXINE HCL 75 MG TABS 1 po BID VENLAFAXINE HCL 20322172229 No Longer Active Elvira Cervantes MD PhD Active TRAMADOL HCL 50 MG TABS 1 tablets every 6 hours as needed for pain TRAMADOL HCL 39099554085 No Longer Active Tu Landeros MD Active ACCU-CHEK FASTCLIX LANCETS MISC Use to check bloodsugar three times daily as needed LANCETS 42130823523 No Longer Active Tu Landeros MD Active ACCU-CHEK KEYONA PLUS STRP Use for testing bloodsugars three times daily as needed GLUCOSE BLOOD 77881824030 No Longer Active Tu Landeros MD Active ACCU-CHEK KEYONA PLUS W/DEVICE KIT Use for testing bloodsugars three times daily as needed BLOOD GLUCOSE MONITORING SUPPL 60316935430 No Longer Active Tu Landeros MD Active SPIRONOLACTONE 25 MG TAB 0.5 tablet by mouth daily SPIRONOLACTONE 12392851183 No Longer Active Tu Landeros MD Active ALPRAZOLAM 0.5 MG TABS 1 tab every 6hrs as needed ALPRAZOLAM 10752918187 No Longer Active Tu Landeros MD Active AUGMENTIN 875-125 MG TAB 1 tab by mouth twice daily with food AMOXICILLIN-POT CLAVULANATE 87528377341 No Longer Active Tu Landeros MD Active PREDNISONE 20 MG TAB 2 tabs daily for 3 days, 1 tab daily for 3 days, 1/2 tab daily for 2 days PREDNISONE 42182974732 No Longer Active Tu Landeros MD Active XANAX 0.5 MG TABS 1 tablet every 6 hrs prn ALPRAZOLAM 34571664324 No Longer Active Tu Landeros MD Active PREDNISONE 20 MG TAB 2 tabs daily for 3 days, 1 tab daily for 3 days, 1/2 tab daily for 2 days PREDNISONE 21789458764 No Longer Active Tu Landeros MD Active TRIAMCINOLONE ACETONIDE 0.1 % OINT Apply to affected areas TID for up to 2 weeks TRIAMCINOLONE ACETONIDE 05883543166 No Longer Active Tu Landeros MD Active LORTAB 5 5-500 MG TABS 1/2 to 1 tablet by mouth every 4 hours as needed for pain HYDROCODONE-ACETAMINOPHEN 55394052158 No Longer Active Tu Landeros MD Active MULTIVITAMINS TABS Take one by mouth daily MULTIPLE VITAMIN 84932425819 No Longer Active Tu Landeros MD Active MELATONIN 5 MG TABS Take one by mouth daily MELATONIN 52068750171 No Longer Active Tu Landeros MD Active SOMA 350 MG TAB 1 po q 6 hours prn spasm CARISOPRODOL 22223612906 No Longer Active Tu Landeros MD Active MECLIZINE HCL 25 MG CHEW TAB 1 four times a day as needed for dizziness 08/05 MECLIZINE HCL 20895246283 No Longer Active Fab Morales DO Active ANGEL BREEZE 2 TEST DISK test tid prn GLUCOSE BLOOD 16780668204 No Longer Active Negra Scott RN Active REGLAN 10 MG TAB 1 po TID PRN Nausea METOCLOPRAMIDE HCL 99283578273 No Longer Active Tu Landeros MD Active METFORMIN HCL 500 MG TABS 1 PO BID METFORMIN HCL 85598811516 No Longer Active Tu Landeros MD Active AMBIEN 10 MG TAB 1 tab by mouth at bedtime as needed for sleep ZOLPIDEM TARTRATE 09185935706 No Longer Active Tu Landeros MD Active FLUOXETINE HCL 40 MG CAPS 1 po q day FLUOXETINE HCL 22487945003 No Longer Active Mayra [place] Active FISH OIL 1000 MG CAPS Take one by mouth daily OMEGA-3 FATTY ACIDS 64621202570 Active Tu Landeros MD Active GLUCOSAMINE 500 MG TABS Take 2 tab po qd GLUCOSAMINE 53371630789 Active Tu Landeros MD Active TRILIPIX 135 MG CPDR 1 po qd CHOLINE FENOFIBRATE 96075769954 No Longer Active Tu Landeros MD Active ASPIRIN 81 MG CHEW TAB 1 tablet by mouth daily ASPIRIN 44941375007 Active Tu Landeros MD Active FUROSEMIDE 40 MG TAB 1 tablet by mouth daily FUROSEMIDE 63833708352 Active Tu Landeros MD Active KLOR-CON 10 10 MEQ CR-TABS TAKE 2 TABS DAILY POTASSIUM CHLORIDE 84335242021 Active Tu Landeros MD Active ALPRAZOLAM 0.5 MG TABS 1 tab every 6hrs as needed ALPRAZOLAM 0.5 MG TABS 675226 ALPRAZOLAM Inactive AMBIEN 10 MG TAB 1 tab by mouth at bedtime as needed for sleep AMBIEN 10 MG TAB 781710 ZOLPIDEM TARTRATE Inactive BACTRIM DS 800-160 MG TABS 1 bid x 14 day start 09-28-13 BACTRIM DS 800-160 MG TABS 516005 SULFAMETHOXAZOLE-TRIMETHOPRIM Inactive BACTRIM DS 800-160 MG TABS 1 po BID x 7 days BACTRIM DS 800-160 MG TABS 285641 SULFAMETHOXAZOLE-TRIMETHOPRIM Inactive CIPRO 500 MG TABS 1 bid x 14 days start 09-28-13 CIPRO 500 MG TABS 925209 CIPROFLOXACIN HCL Inactive CIPRO 500 MG TAB 1 tablet by mouth twice daily CIPRO 500 MG TAB 160315 CIPROFLOXACIN HCL Inactive MECLIZINE HCL 25 MG CHEW TAB 1 four times a day as needed for dizziness 08/05 MECLIZINE HCL 25 MG CHEW TAB 150901 MECLIZINE HCL Inactive MULTIVITAMINS TABS Take one by mouth daily MULTIVITAMINS TABS MULTIPLE VITAMIN Inactive PREDNISONE 20 MG TAB 2 tablets once daily for 2 days, then 1 tablet once daily for 2 days PREDNISONE 20 MG TAB 569108 PREDNISONE Inactive PREDNISONE 20 MG TAB 2 tabs daily for 3 days, 1 tab daily for 3 days, 1/2 tab daily for 2 days PREDNISONE 20 MG TAB 378816 PREDNISONE Inactive PREDNISONE 20 MG TAB 2 tabs daily for 3 days, 1 tab daily for 3 days, 1/2 tab daily for 2 days PREDNISONE 20 MG TAB 137820 PREDNISONE Inactive REGLAN 10 MG TAB 1 po TID PRN Nausea REGLAN 10 MG TAB 296908 METOCLOPRAMIDE HCL Inactive SOMA 350 MG TAB 1 po q 6 hours prn spasm SOMA 350 MG TAB 123466 CARISOPRODOL Inactive SPIRONOLACTONE 25 MG TAB 0.5 tablet by mouth daily SPIRONOLACTONE 25 MG TAB 854691 SPIRONOLACTONE Inactive TRIAMCINOLONE ACETONIDE 0.1 % OINT Apply to affected areas TID for up to 2 weeks TRIAMCINOLONE ACETONIDE 0.1 % OINT 7667846 TRIAMCINOLONE ACETONIDE Inactive XANAX 0.5 MG TABS 1 tablet every 6 hrs prn XANAX 0.5 MG TABS 472047 ALPRAZOLAM Inactive METFORMIN HCL 500 MG TABS 1 PO BID METFORMIN HCL 500 MG TABS 943248 METFORMIN HCL Inactive SIMVASTATIN 40 MG TABS Take one by mouth daily SIMVASTATIN 40 MG TABS 157573 SIMVASTATIN Inactive VENLAFAXINE HCL 75 MG TABS 1 po BID VENLAFAXINE HCL 75 MG TABS 628291 VENLAFAXINE HCL Inactive VENLAFAXINE HCL 75 MG TABS 1 po BID VENLAFAXINE HCL 75 MG TABS 366362 VENLAFAXINE HCL Inactive VENLAFAXINE HCL 37.5 MG TABS 1 po BID VENLAFAXINE HCL 37.5 MG TABS 592646 VENLAFAXINE HCL Inactive LORTAB 5 5-500 MG [...] for pain TRAMADOL HCL 50 MG TABS 374143 TRAMADOL HCL Inactive HYDROCODONE-ACETAMINOPHEN 5-500 MG TABS take one po Q 4-6 hours prn HYDROCODONE-ACETAMINOPHEN 5-500 MG TABS HYDROCODONE- ACETAMINOPHEN Inactive DICLOFENAC SODIUM 50 MG TBEC 1 tablet by mouth three times a day as needed DICLOFENAC SODIUM 50 MG TBEC 436560 DICLOFENAC SODIUM Inactive AUGMENTIN 875-125 MG TAB 1 tab by mouth twice daily with food AUGMENTIN 875-125 MG TAB 855953 AMOXICILLIN-POT CLAVULANATE Inactive LAMISIL 250 MG TAB 1 po qd LAMISIL 250 MG TAB 381842 TERBINAFINE HCL Inactive MELATONIN 5 MG TABS Take one by mouth daily MELATONIN 5 MG TABS 084671 MELATONIN Inactive GABAPENTIN 100 MG CAPS 1 po bid GABAPENTIN 100 MG CAPS 231670 GABAPENTIN Inactive ZITHROMAX 250 MG TAB 2 po today, then 1 po q days 2-5 ZITHROMAX 250 MG TAB 5845805 AZITHROMYCIN Inactive REQUIP 2 MG TABS Take one tablet at bedtime prn REQUIP 2 MG TABS 304281 ROPINIROLE HCL Inactive FLONASE 50 MCG/ACT SUSP [...] needed for pain HYDROCODONE-ACETAMINOPHEN 5-325 MG TABS 489218 HYDROCODONE-ACETAMINOPHEN Inactive FENOFIBRATE 145 MG TABS 1 po qd FENOFIBRATE 145 MG TABS 011045 FENOFIBRATE Inactive OMEPRAZOLE 20 MG TBEC 1 PO 30 MIN BEFORE 1ST MEAL OMEPRAZOLE 20 MG TBEC 220498 OMEPRAZOLE Inactive TRUERESULT BLOOD GLUCOSE W/DEVICE KIT [...] 250.00 TRUETEST TEST STRP GLUCOSE BLOOD Inactive B-12 100 MCG [...] daily as needed ACCU-CHEK FASTCLIX LANCETS MISC 73352389403 LANCETS Inactive ACCU-CHEK KEYONA PLUS STRP Use [...] Fluvirin, Fluarix, Agriflu(>=18 yo)) Fluzone (>3 yrs.) [[id number]] Influenza, seasonal, injectable influenza immunization (Flu Vax) has been administered 02/22/2012 influenza virus vaccine, unspecified formulation Seasonal influenza vaccine, injectable, containing preservative, for > 3 years old (Afluria, FluLaval, Fluzone, Fluvirin, Fluarix, Agriflu(>=18 yo)) Fluzone (>3 yrs.) [[id number]] Influenza, seasonal, injectable Vital Signs Date Name [...] 7.4 % 4.3-6.0 sodium, serum 140 mmol/L 367-224 1582/09/07 potassium, serum 4.3 mmol/L 3.5-5.2 chloride, serum 104 mmol/L 98-107 carbon dioxide, venous blood 27.7 mmol/L 21.0-32.0 blood glucose 156 mg/dL 65-110 calcium, serum 9.3 mg/dL 8.5-10.1 urea nitrogen, blood 23 mg/dL 7-18 creatinine, serum 1.21 mg/dL 0.55-1.30 Lab Report: Lipid Panel, Comp. Metabolic Panel - Chemistry cholesterol, serum 124 mg/dL 482-782 9265/01/12 triglyceride, serum, fasting 135 mg/dL 30-200 HDL cholesterol, serum 41 mg/dL 32-96 LDL cholesterol, serum 56 mg/dL 0-130 sodium, serum 140 mmol/L 961-969 7671/01/12 carbon dioxide, venous blood 27.7 mmol/L 21.0-32.0 potassium, serum 4.5 mmol/L 3.5-5.2 chloride, serum 104 mmol/L 98-107 blood glucose 139 mg/dL 65-110 urea nitrogen, blood 16 mg/dL 7-18 alanine aminotransferase (SGPT), serum 32 U/L 12-78 aspartate aminotransferase (SGOT), serum 25 U/L 15-37 calcium, serum 9.1 mg/dL 8.5-10.1 bilirubin, serum, total 0.50 mg/dL 0.00-1.00 Encounters Code Encounter Date Provider Facility CPT-42292 Level 4 Est. Patient 14:40:19 CDT Tu Landeros MD [facility] CPT-20924 Level 4 Est. Patient 14:06:04 EXCAVATING SUPERVISOR Tu Landeros MD [facility] CPT-77710 Level 3 Est. Patient 14:05:18 EXCAVATING SUPERVISOR Tu Landeros MD [facility] CPT-48753 Level 3 Est. Patient 10:06:54 EXCAVATING SUPERVISOR Miranda Suresh APRN [facility] CPT-26357 Level 4 Est. Patient 13:50:18 EXCAVATING SUPERVISOR Tu Landeros MD [facility] CPT-67501 Level 3 Est. Patient 10:30:04 CDT Tu Landeros MD [facility] CPT-53756 Level 4 Est. Patient 11:03:38 CDT Tu Landeros MD [facility] CPT-49759 Level 3 Est. Patient 10:20:44 CDT Fab Morales DO [facility] CPT-48971 Level 4 Est. Patient 14:38:57 CDT Tu Landeros MD [facility] CPT-56055 Level 4 Est. Patient 14:27:39 EXCAVATING SUPERVISOR Tu Landeros MD [facility] CPT-84448 Level 4 Est. Patient 09:45:25 CDT Tu Landeros MD [facility] CPT-17948 Level 4 Est. Patient 09:05:20 EXCAVATING SUPERVISOR Tu Landeros MD [facility] CPT-81563 Level 4 Est. Patient 14:09:06 CDT Tu Landeros MD [facility] CPT-37407 Level 3 Est. Patient 13:36:54 CDT Tu Landeros MD [facility] CPT-91522 Level 3 Est. Patient 08:59:14 CDT Tu Landeros MD [facility] CPT-94882 Level 3 Est. Patient 13:48:35 CDT Fab Morales DO [facility] CPT-34984 Level 4 Est. Patient 10:05:48 CDT Tu Landeros MD [facility] CPT-20236 Level 3 Est. Patient 13:38:[address] [facility] CPT-22051 Level 5 Est. Patient 08:08:[address] [facility] CPT-97902 Level 4 Est. Patient 14:23:38 CDT Tu Landeros MD [facility] CPT-25714 Level 3 Est. Patient 11:44:04 CDT Tu Landeros MD [facility] CPT-65574 Level 3 Est. Patient 11:03:20 EXCAVATING SUPERVISOR Tu Landeros MD [facility] CPT-45302 Level 3 Est. Patient 11:03:14 EXCAVATING SUPERVISOR Tu Landeros MD [facility] CPT-14934 Level 3 Est. Patient 12:42:49 CDT Tu Landeros MD [facility] CPT-82691 Level 3 Est. Patient 11:52:06 CDT Tu Landeros MD [facility] CPT-94078 Level 3 Est. Patient 13:58:11 CDT Tu Landeros MD [facility] CPT-06443 Level 3 Est. Patient 17:50:07 CDT Fab Morales DO [facility] CPT-54734 Level 3 Est. Patient 12:06:29 CDT Elvira Cervantes MD [facility] CPT-09939 Level 3 Est. Patient 15:50:32 CDT Tu Landeros MD [facility] CPT-26703 Level 4 Est. Patient 16:08:29 CDT Tu Landeros MD [facility] CPT-98764 Level 3 Est. Patient 16:04:19 CDT Tu Landeros MD [facility] CPT-06576 Level 3 Est. Patient 11:22:30 EXCAVATING SUPERVISOR Tu Landeros MD [facility] CPT-16275 Level 4 Est. Patient 16:24:02 EXCAVATING SUPERVISOR Tu Landeros MD [facility] CPT-13797 Level 3 Est. Patient 17:21:23 EXCAVATING SUPERVISOR Tu Landeros MD [facility] Procedures Code Procedure Name Date Entry Date Standard Description CPT-74732 First Vx - Ix admin for Medicare patients 16:46:52 CDT CPT-59073 Fluzone Preservative Free Intramuscular Suspension 16:46 :51 CDT CPT-07152 CBC - LAB USE ONLY 17:14:46 CDT CPT-82124 HGBA1C - LAB USE ONLY 17:14:46 CDT CPT-62005 Venipuncture Draw Fee 17:14:46 CDT CPT-G0438 Initial Annual Wellness Exam 14:13:04 CDT CPT-42678 Breathing Tx 10:06:54 EXCAVATING SUPERVISOR CPT-79741 Postop F/U Visit 10:02:45 CDT CPT-LR Lesion Removal 09:02:56 CDT CPT-JTINJ Asp/Joint Injection 15:51:27 EXCAVATING SUPERVISOR CPT-OV Office Visit 15:52:02 EXCAVATING SUPERVISOR CPT-OV Office Visit 15:45:11 CDT CPT-000 Give Zostavax 14:09:06 CDT CPT-34008 Administration single or combination vaccine inc oral 15 :19:04 CDT CPT-93435 Zoster Vaccine (Zostavax) 15:19:04 CDT CPT-23012 Administration single or combination vaccine inc oral 20 :51:03 CDT CPT-98031 Influenza split virus > age 3 20:51:03 CDT CPT-58987 No Charge Offi Visit 14:52:03 CDT CPT-OV Office Visit 14:57:43 CDT CPT-OV Office Visit 15:22:32 CDT CPT-45595 Administration single or combination vaccine inc oral 11 :33:15 CDT CPT-84968 Influenza split virus > age 3 11:33:15 CDT
--- OUTSIDE RECORDS SUMMARY | 2018-04-25 14:44 | XMS REPORT | Clinical Summary ---
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 Moderate or severe vision impairment, both eyes, [...] Inactive Tu Landeros MD 2012 PARESTHESIA ICD-782.0 Tessa Landeros MD RASH AND OTHER NONSPECIFIC SKIN ERUPTION ICD-782.1 Inactive Tu Landeros MD FATIGUE ICD-780.79 Tessa Landeros MD 2012 CARPAL TUNNEL SYNDROME ICD-354.0 Inactive Tu Landeros MD ARTHRITIS ICD-716.90 Inactive Tu Landeros MD KNEE PAIN ICD-719.46 Inactive Tu Landeros MD SHOULDER PAIN, LEFT ICD-719.41 Tessa Landeros MD PRESSURE ULCER UNSPECIFIED SITE ICD-707.00 Inactive uT Landeros MD LOCALIZED SUPERFICIAL SWELLING MASS OR LUMP ICD-782.2 Tessa Landeros MD ONYCHOMYCOSIS ICD-110.1 Tessa Landeros MD CONTUSION OF UNSPECIFIED SITE ICD-924.9 Tessa Landeros MD Open wound of abdominal [...] hours if needed for cough/congestion ALBUTEROL SULFATE 98424667141 No Longer Active Ambika Aden APRN Active ZITHROMAX 250 MG TAB 2 po today, then 1 po q days 2-5 AZITHROMYCIN 99920780228 No Longer Active Miranda Suresh APRN Active METFORMIN HCL 1000 MG TABS 1 tablet by mouth twice daily METFORMIN HCL 32794217829 Active Tu Landeros MD Active FLONASE 50 MCG/ACT SUSP 1 spray each nostril twice daily until bottle empty FLUTICASONE PROPIONATE 26886970771 No Longer Active Tu Landeros MD Active COLACE 100 MG CAP 1 po BID PRN Constipation DOCUSATE SODIUM 54895915997 Active Tu Landeros MD Active SIMVASTATIN 40 MG TABS 0.5 tab daily at bedtime SIMVASTATIN 76193577316 Active Tu Landeros MD Active TRUERESULT BLOOD GLUCOSE W/DEVICE KIT test blood sugar twice daily dx 250.00 BLOOD GLUCOSE MONITORING SUPPL 31235763005 No Longer Active Tu Landeros MD Active TRUEDRAW LANCING DEVICE MISC Test twice a day dx 250.0 LANCET DEVICES 68019866999 No Longer Active Tu Landeros MD Active PREDNISONE 20 MG TAB 2 tablets once daily for 2 days, then 1 tablet once daily for 2 days PREDNISONE 21428904727 No Longer Active Tu Landeros MD Active DICLOFENAC SODIUM 50 MG TBEC 1 tablet by mouth three times a day as needed DICLOFENAC SODIUM 06382248025 No Longer Active Fab Morales DO Active TRUEDRAW LANCING DEVICE MISC test blood sugar twice daily dx: 250.00 LANCET DEVICES 29848731174 Active Tu Landeros MD Active TRUETEST TEST INVITR STRP test blood sugar twice daily. DX 250.0 GLUCOSE BLOOD 26473063088 Active Tu Landeros MD Active EMBRACE BLOOD GLUCOSE TEST STRP test blood sugar twice daily DX 250.0 2014 GLUCOSE BLOOD 65378643823 No Longer Active Tu Landeros MD Active TRUETEST TEST STRP test blood sugar three times daily dx: 250.00 GLUCOSE BLOOD 47437076765 No Longer Active Suzebianca VOGEL Active TRUERESULT BLOOD GLUCOSE W/DEVICE KIT use to test blood sugar tid dx: 250.00 BLOOD GLUCOSE MONITORING SUPPL 46072586911 No Longer Active Suze Corey RMA Active ALIGN 4 MG CAPS 1 tid PROBIOTIC PRODUCT 25152101274 No Longer Active Shaun Sy MD Active CIPRO 500 MG TABS 1 bid x 14 days start 09-28-13 CIPROFLOXACIN HCL 97169179767 No Longer Active Shaun Sy MD Active TRAMADOL HCL 50 MG TABS 1-2 tablets every 6 hours as needed for pain TRAMADOL HCL 26897948446 Active Tu Landeros MD Active HYDROCODONE-ACETAMINOPHEN 5-325 MG TABS 1 tab by mouth every 6 hours as needed for pain HYDROCODONE-ACETAMINOPHEN 47256785813 No Longer Active Tu Landeros MD Active OMEPRAZOLE 20 MG CPDR 1 po q a.m. OMEPRAZOLE 42739548310 Active Tu Landeros MD Active GABAPENTIN 100 MG CAPS 1 po bid GABAPENTIN 20276496315 No Longer Active Tu Landeros MD Active B-12 100 MCG TABS Take one by mouth daily CYANOCOBALAMIN 16047490052 No Longer Active Tu Landeros MD Active GABAPENTIN 100 MG CAPS by mouth twice a day GABAPENTIN 72739497035 Active Tiffanie Doyle Active BACTRIM DS 800-160 MG TABS 1 bid x 14 day start 8-14 SULFAMETHOXAZOLE-TRIMETHOPRIM 09583430341 No Longer Active Tu Landeros MD Active CARVEDILOL 12.5 MG TABS 1 po BID CARVEDILOL 61894017470 Active Tu Landeros MD Active SUPER B COMPLEX/VITAMIN C TABS 1 qd B COMPLEX-C 01512023601 Active JASPREET Perez Active TRILIPIX 135 MG CPDR 1 q hs CHOLINE FENOFIBRATE 52573498458 Active Tu Landeros MD Active FENOFIBRATE 145 MG TABS 1 po qd FENOFIBRATE 55491922903 No Longer Active JASPREET Perez Active OMEPRAZOLE 20 MG TBEC 1 PO 30 MIN BEFORE 1ST MEAL OMEPRAZOLE 17199567136 No Longer Active JASPREET Perez Active SIMVASTATIN 40 MG TABS Take one by mouth daily SIMVASTATIN 22141796644 No Longer Active JASPREET Perez Active VENLAFAXINE HCL 37.5 MG TABS 1 bid VENLAFAXINE HCL 70154743513 Active Tu Landeros MD Active VENLAFAXINE HCL 75 MG TABS 1 po BID VENLAFAXINE HCL 07086133642 No Longer Active JASPREET Perez Active CIPRO 500 MG TAB 1 tablet by mouth twice daily CIPROFLOXACIN HCL 98794624723 No Longer Active Tu Landeros MD Active VENLAFAXINE HCL 37.5 MG TABS 1 po BID VENLAFAXINE HCL 90303549519 No Longer Active Suze Corey RMA Active LAMISIL 250 MG TAB 1 po qd TERBINAFINE HCL 47292406944 No Longer Active Tu Landeros MD Active LORTAB 5 5-500 MG TABS 1/2 to 1 tablet by mouth every 4 hours as needed for pain HYDROCODONE-ACETAMINOPHEN 89095142879 No Longer Active Tu Landeros MD Active ENALAPRIL MALEATE 20 MG TABS 1.5 po qd ENALAPRIL MALEATE 89235631941 Active Tu Landeros MD Active HYDROCODONE-ACETAMINOPHEN 5-500 MG TABS take one po Q 4-6 hours prn HYDROCODONE-ACETAMINOPHEN 79986844615 No Longer Active Tu Landeros MD Active BACTRIM DS 800-160 MG TABS 1 po BID x 7 days SULFAMETHOXAZOLE-TRIMETHOPRIM 16448066320 No Longer Active Tu Landeros MD Active VENLAFAXINE HCL 75 MG TABS 1 po BID VENLAFAXINE HCL 09971033581 No Longer Active Elvira Cervantes MD PhD Active TRAMADOL HCL 50 MG TABS 1 tablets every 6 hours as needed for pain TRAMADOL HCL 59405260497 No Longer Active Tu Landeros MD Active ACCU-CHEK FASTCLIX LANCETS MISC Use to check bloodsugar three times daily as needed LANCETS 11631208428 No Longer Active Tu Landeros MD Active ACCU-CHEK KEYONA PLUS STRP Use for testing bloodsugars three times daily as needed GLUCOSE BLOOD 17958175475 No Longer Active Tu Landeros MD Active ACCU-CHEK KEYONA PLUS W/DEVICE KIT Use for testing bloodsugars three times daily as needed BLOOD GLUCOSE MONITORING SUPPL 24249374332 No Longer Active Tu Landeros MD Active SPIRONOLACTONE 25 MG TAB 0.5 tablet by mouth daily SPIRONOLACTONE 04868645799 No Longer Active Tu Landeros MD Active ALPRAZOLAM 0.5 MG TABS 1 tab every 6hrs as needed ALPRAZOLAM 92483497033 No Longer Active Tu Landeros MD Active AUGMENTIN 875-125 MG TAB 1 tab by mouth twice daily with food AMOXICILLIN-POT CLAVULANATE 04209066237 No Longer Active Tu Landeros MD Active PREDNISONE 20 MG TAB 2 tabs daily for 3 days, 1 tab daily for 3 days, 1/2 tab daily for 2 days PREDNISONE 36927471807 No Longer Active Tu Landeros MD Active XANAX 0.5 MG TABS 1 tablet every 6 hrs prn ALPRAZOLAM 51938490668 No Longer Active Tu Landeros MD Active PREDNISONE 20 MG TAB 2 tabs daily for 3 days, 1 tab daily for 3 days, 1/2 tab daily for 2 days PREDNISONE 87136971426 No Longer Active Tu Landeros MD Active TRIAMCINOLONE ACETONIDE 0.1 % OINT Apply to affected areas TID for up to 2 weeks TRIAMCINOLONE ACETONIDE 17755999917 No Longer Active Tu Landeros MD Active LORTAB 5 5-500 MG TABS 1/2 to 1 tablet by mouth every 4 hours as needed for pain HYDROCODONE-ACETAMINOPHEN 85570405322 No Longer Active Tu Landeros MD Active MULTIVITAMINS TABS Take one by mouth daily MULTIPLE VITAMIN 43066328337 No Longer Active Tu Landeros MD Active MELATONIN 5 MG TABS Take one by mouth daily MELATONIN 20451412490 No Longer Active Tu Landeros MD Active SOMA 350 MG TAB 1 po q 6 hours prn spasm CARISOPRODOL 29428260467 No Longer Active Tu Landeros MD Active MECLIZINE HCL 25 MG CHEW TAB 1 four times a day as needed for dizziness 08/05 MECLIZINE HCL 28815112203 No Longer Active Fab Morales DO Active ANGEL BREEZE 2 TEST DISK test tid prn GLUCOSE BLOOD 07247751632 No Longer Active Negra Scott RN Active REGLAN 10 MG TAB 1 po TID PRN Nausea METOCLOPRAMIDE HCL 17341791857 No Longer Active Tu Landeros MD Active METFORMIN HCL 500 MG TABS 1 PO BID METFORMIN HCL 37734675115 No Longer Active Tu Landeros MD Active AMBIEN 10 MG TAB 1 tab by mouth at bedtime as needed for sleep ZOLPIDEM TARTRATE 84449849937 No Longer Active Tu Landeros MD Active FLUOXETINE HCL 40 MG CAPS 1 po q day FLUOXETINE HCL 18894819946 No Longer Active Mayra Terry Active FISH OIL 1000 MG CAPS Take one by mouth daily OMEGA-3 FATTY ACIDS 78256795609 Active Tu Landeros MD Active GLUCOSAMINE 500 MG TABS Take 2 tab po qd GLUCOSAMINE 87803373860 Active Tu Landeros MD Active TRILIPIX 135 MG CPDR 1 po qd CHOLINE FENOFIBRATE 00439696682 No Longer Active Tu Landeros MD Active ASPIRIN 81 MG CHEW TAB 1 tablet by mouth daily ASPIRIN 87629301623 Active Tu Landeros MD Active FUROSEMIDE 40 MG TAB 1 tablet by mouth daily FUROSEMIDE 43070915431 Active Tu Landeros MD Active REQUIP 2 MG TABS Take one tablet at bedtime prn ROPINIROLE HCL 25449482940 Active Tu Landeros MD Active KLOR-CON 10 10 MEQ CR-TABS TAKE 2 TABS DAILY POTASSIUM CHLORIDE 94104773915 Active Tu Landeros MD Active AMBIEN 10 MG TAB 1 tab by mouth at bedtime as needed for sleep AMBIEN 10 MG TAB 978135 ZOLPIDEM TARTRATE Inactive METFORMIN HCL 500 MG TABS 1 PO BID METFORMIN HCL 500 MG TABS 468294 METFORMIN HCL Inactive REGLAN 10 MG TAB 1 po TID PRN Nausea REGLAN 10 MG TAB 611990 METOCLOPRAMIDE HCL Inactive MECLIZINE HCL 25 MG CHEW TAB 1 four times a day as needed for dizziness 08/05 MECLIZINE HCL 25 MG CHEW TAB 330412 MECLIZINE HCL Inactive SOMA 350 MG TAB 1 po q 6 hours prn spasm SOMA 350 MG TAB 908382 CARISOPRODOL Inactive MELATONIN 5 MG TABS Take one by mouth daily MELATONIN 5 MG TABS 938139 MELATONIN Inactive MULTIVITAMINS TABS Take one by mouth daily MULTIVITAMINS TABS MULTIPLE VITAMIN Inactive LORTAB 5 5-500 MG TABS 1/2 to 1 tablet by mouth every 4 hours as needed for pain LORTAB 5 5-500 MG TABS HYDROCODONE- ACETAMINOPHEN Inactive XANAX 0.5 MG TABS 1 tablet every 6 hrs prn XANAX 0.5 MG TABS 989106 ALPRAZOLAM Inactive AUGMENTIN 875-125 MG TAB 1 tab by mouth twice daily with food AUGMENTIN 875-125 MG TAB 351394 AMOXICILLIN-POT CLAVULANATE Inactive ALPRAZOLAM 0.5 MG TABS 1 tab every 6hrs as needed ALPRAZOLAM 0.5 MG TABS 289825 ALPRAZOLAM Inactive SPIRONOLACTONE 25 MG TAB 0.5 tablet by mouth daily SPIRONOLACTONE 25 MG TAB 642201 SPIRONOLACTONE Inactive ACCU-CHEK KEYONA PLUS W/DEVICE KIT Use for testing bloodsugars three times daily as needed ACCU-CHEK KEYONA PLUS W/DEVICE KIT BLOOD GLUCOSE MONITORING SUPPL Inactive ACCU-CHEK KEYONA PLUS STRP Use for testing bloodsugars three times daily as needed ACCU-CHEK KEYONA PLUS STRP GLUCOSE BLOOD Inactive ACCU-CHEK FASTCLIX LANCETS MISC Use to check bloodsugar three times daily as needed ACCU-CHEK FASTCLIX LANCETS MISC 05636711376 LANCETS Inactive TRAMADOL HCL 50 MG TABS 1 tablets every 6 hours as needed for pain TRAMADOL HCL 50 MG TABS 069856 TRAMADOL HCL Inactive VENLAFAXINE HCL 75 MG TABS 1 po BID VENLAFAXINE HCL 75 MG TABS 004922 VENLAFAXINE HCL Inactive HYDROCODONE-ACETAMINOPHEN 5-500 MG TABS take one po Q 4-6 hours prn HYDROCODONE-ACETAMINOPHEN 5-500 MG TABS HYDROCODONE- ACETAMINOPHEN Inactive LORTAB 5 5-500 MG TABS 1/2 to 1 tablet by mouth every 4 hours as needed for pain LORTAB 5 5-500 MG TABS HYDROCODONE- ACETAMINOPHEN Inactive LAMISIL 250 MG TAB 1 po qd LAMISIL 250 MG TAB 580901 TERBINAFINE HCL Inactive VENLAFAXINE HCL 37.5 MG TABS 1 po BID VENLAFAXINE HCL 37.5 MG TABS 171865 VENLAFAXINE HCL Inactive CIPRO 500 MG TAB 1 tablet by mouth twice daily CIPRO 500 MG TAB 625530 CIPROFLOXACIN HCL Inactive VENLAFAXINE HCL 75 MG TABS 1 po BID VENLAFAXINE HCL 75 MG TABS 269054 VENLAFAXINE HCL Inactive SIMVASTATIN 40 MG TABS Take one by mouth daily SIMVASTATIN 40 MG TABS 960747 SIMVASTATIN Inactive OMEPRAZOLE 20 MG TBEC 1 PO 30 MIN BEFORE 1ST MEAL OMEPRAZOLE 20 MG TBEC 163895 OMEPRAZOLE Inactive FENOFIBRATE 145 MG TABS 1 po qd FENOFIBRATE 145 MG TABS 385517 FENOFIBRATE Inactive BACTRIM DS 800-160 MG TABS 1 bid x 14 day start 09-28-13 BACTRIM DS 800-160 MG TABS 138709 SULFAMETHOXAZOLE-TRIMETHOPRIM Inactive B-12 100 MCG TABS Take one by mouth daily B-12 100 MCG TABS CYANOCOBALAMIN Inactive GABAPENTIN 100 MG CAPS 1 po bid GABAPENTIN 100 MG CAPS 328005 GABAPENTIN Inactive HYDROCODONE-ACETAMINOPHEN 5-325 MG TABS 1 tab by mouth every 6 hours as needed for pain HYDROCODONE-ACETAMINOPHEN 5-325 MG TABS 688885 HYDROCODONE-ACETAMINOPHEN Inactive CIPRO 500 MG TABS 1 bid x 14 days start 09-28-13 CIPRO 500 MG TABS 621658 CIPROFLOXACIN HCL Inactive ALIGN 4 MG CAPS [...] as needed DICLOFENAC SODIUM 50 MG TBEC 060765 DICLOFENAC SODIUM Inactive PREDNISONE 20 MG TAB 2 tablets once daily for 2 days, then 1 tablet once daily for 2 days PREDNISONE 20 MG TAB 469348 PREDNISONE Inactive TRUEDRAW LANCING DEVICE MISC Test [...] 2 weeks TRIAMCINOLONE ACETONIDE 0.1 % OINT 7572725 TRIAMCINOLONE ACETONIDE Inactive PREDNISONE 20 MG TAB 2 tabs daily for 3 days, 1 tab daily for 3 days, 1/2 tab daily for 2 days PREDNISONE 20 MG TAB 441289 PREDNISONE Inactive PREDNISONE 20 MG TAB 2 tabs daily for 3 days, 1 tab daily for 3 days, 1/2 tab daily for 2 days PREDNISONE 20 MG TAB 204414 PREDNISONE Inactive BACTRIM DS 800-160 MG TABS 1 po BID x 7 days BACTRIM DS 800-160 MG TABS 658240 SULFAMETHOXAZOLE-TRIMETHOPRIM Inactive ZITHROMAX 250 MG TAB 2 po today, then 1 po q days 2-5 ZITHROMAX 250 MG TAB 2641295 AZITHROMYCIN Inactive Advance Directives Directive Description Start Date DISCUSSED WITH PATIENT -- NO DECISION MADE Immunizations Vaccine Administration Date Value Standard Description Seasonal influenza vaccine, injectable, containing preservative, for > 3 years old (Afluria, FluLaval, Fluzone, Fluvirin, Fluarix, Agriflu(>=18 yo)) Fluzone (>3 yrs.) [[id number]] Influenza, seasonal, injectable influenza immunization (Flu Vax) has been administered 02/22/2012 influenza virus vaccine, unspecified formulation Seasonal influenza vaccine, injectable, containing preservative, for > 3 years old (Afluria, FluLaval, Fluzone, Fluvirin, Fluarix, Agriflu(>=18 yo)) Fluzone (>3 yrs.) [[id number]] Influenza, seasonal, injectable Vital Signs Date Name [...] Report: Basic Metabolic Panel, MICROALBUMIN - Chemistry creatinine, serum 0.92 mg/dL 0.55-1.30 urea nitrogen, blood 17 mg/dL 7-18 calcium, serum 9.1 mg/dL 8.5-10.1 blood glucose 142 mg/dL 65-110 carbon dioxide, venous blood 28.9 mmol/L 21.0-32.0 chloride, serum 105 mmol/L 98-107 potassium, serum 4.5 mmol/L 3.5-5.2 sodium, serum 142 mmol/L 238-092 4206/10/08 albumin/creatinine ratio, urine < 30 mg/g mg/g{creat} [...] 7.4 % 4.3-6.0 sodium, serum 140 mmol/L 842-807 9177/09/07 potassium, serum 4.3 mmol/L 3.5-5.2 chloride, serum 104 mmol/L 98-107 carbon dioxide, venous blood 27.7 mmol/L 21.0-32.0 blood glucose 156 mg/dL 65-110 calcium, serum 9.3 mg/dL 8.5-10.1 urea nitrogen, blood 23 mg/dL 7-18 creatinine, serum 1.21 mg/dL 0.55-1.30 hemoglobin A1C, blood, as % of total hemoglobin 7.1 % 4.3-6.0 Lab Report: Lipid Panel, Comp. Metabolic Panel - Chemistry alanine aminotransferase (SGPT), serum 32 U/L 12-78 aspartate aminotransferase (SGOT), serum 25 U/L 15-37 calcium, serum 9.1 mg/dL 8.5-10.1 bilirubin, serum, total 0.50 mg/dL 0.00-1.00 cholesterol, serum 124 mg/dL 838-310 2224/01/12 triglyceride, serum, fasting 135 mg/dL 30-200 HDL cholesterol, serum 41 mg/dL 32-96 LDL cholesterol, serum 56 mg/dL 0-130 sodium, serum 140 mmol/L 601-167 1154/01/12 carbon dioxide, venous blood 27.7 mmol/L 21.0-32.0 potassium, serum 4.5 mmol/L 3.5-5.2 chloride, serum 104 mmol/L 98-107 blood glucose 139 mg/dL 65-110 urea nitrogen, blood 16 mg/dL 7-18 Encounters Code Encounter Date Provider Facility CPT-12856 Level 4 Est. 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 Patient 10:06:54 REAL ESTATE LOAN PROCESSOR Miranda Suresh APRN [facility] CPT-82781 Level 4 Est. 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 Patient 10:30:04 CDT Tu Landeros MD [facility] CPT-93112 Level 4 Est. Patient 11:03:38 CDT Tu Landeros MD [facility] CPT-71859 Level 3 Est. Patient 10:20:44 CDT Fab Morales DO [facility] CPT-60440 Level 4 Est. Patient 14:38:57 CDT Tu Landeros MD [facility] CPT-55987 Level 4 Est. 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 Patient 09:45:25 CDT Tu Landeros MD [facility] CPT-76177 Level 4 Est. 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 Patient 14:09:06 CDT Tu Landeros MD [facility] CPT-54827 Level 3 Est. Patient 13:36:54 CDT Tu Landeros MD [facility] CPT-37571 Level 3 Est. Patient 08:59:14 CDT Tu Landeros MD [facility] CPT-28367 Level 3 Est. Patient 13:48:35 CDT Fab Morales DO [facility] CPT-57789 Level 4 Est. Patient 10:05:48 CDT Tu Landeros MD [facility] CPT-01714 Level 3 Est. Patient 13:38:42 CDT Marek BANKS [facility] CPT-50490 Level 5 Est. Patient 08:08:39 CDT Jerrica Dawsontay FRANCIS [facility] CPT-73873 Level 4 Est. Patient 14:23:38 CDT Tu Landeros MD [facility] CPT-96864 Level 3 Est. Patient 11:44:04 CDT Tu Landeros MD [facility] CPT-68943 Level 3 Est. 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 Patient 12:42:49 CDT Tu Landeros MD [facility] CPT-95078 Level 3 Est. Patient 11:52:06 CDT Tu Landeros MD [facility] CPT-29614 Level 3 Est. Patient 13:58:11 CDT Tu Landeros MD [facility] CPT-51457 Level 3 Est. Patient 17:50:07 CDT Fab Morales DO [facility] CPT-10570 Level 3 Est. Patient 12:06:29 CDT Elvira Cervantes MD PhD [facility] CPT-04176 Level 3 Est. Patient 15:50:32 CDT Tu Landeros MD [facility] CPT-59500 Level 4 Est. Patient 16:08:29 CDT Tu Landeros MD [facility] CPT-22622 Level 3 Est. Patient 16:04:19 CDT Tu Landeros MD [facility] CPT-49710 Level 3 Est. 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 Tu Landeros MD [facility] Procedures Code Procedure Name Date Entry Date Standard Description CPT-46102 CBC - LAB USE ONLY 17:14:46 CDT CPT-41198 HGBA1C - LAB USE ONLY 17:14:46 CDT CPT-80734 Venipuncture Draw Fee 17:14:46 CDT CPT-G0438 Initial Annual Wellness Exam 14:13:04 CDT CPT-76468 Breathing Tx 10:06:54 [employer] ESTATE LOAN PROCESSOR CPT-32464 Postop F/U Visit 10:02:45 CDT CPT-LR Lesion Removal 09:02:56 CDT CPT-JTINJ Asp/Joint Injection 15:51:27 REAL ESTATE LOAN PROCESSOR CPT-OV Office Visit 15:52:02 REAL ESTATE LOAN PROCESSOR CPT-OV Office Visit 15:45:11 CDT CPT-000 Give Zostavax 14:09:06 CDT CPT-18075 Administration single or combination vaccine inc oral 15 :19:04 CDT CPT-23878 Zoster Vaccine (Zostavax) 15:19:04 CDT CPT-96081 Administration single or combination vaccine inc oral 20 :51:03 CDT CPT-18129 Influenza split virus > age 3 20:51:03 CDT CPT-51260 No Charge Offi Visit 14:52:03 CDT CPT-OV Office Visit 14:57:43 CDT CPT-OV Office Visit 15:22:32 CDT CPT-56104 Administration single or combination vaccine inc oral 11 :33:15 CDT CPT-06409 Influenza split virus > age 3 11:33:15 CDT
[2018-04-25] MEDS ORDERED: PATIENT MAY USE OWN MEDS, ALL PO SCH (14:45)
--- NOTE | 2018-04-25 14:45 | Discharge Inst-Post CATH ---
Discharge Inst-CATH Post Cardiac Cath D/C Inst Follow Up/Plan Dr Green PRAde CARDIAC CATH DISCHARGE INSTRUCTIONS *Hold Metformin for 48 hours post heart cath. ACTIVITY * Go Home directly and rest. * Limit activity of the leg (or wrist if it was used) for 7 days including aerobics, swimming, jogging, bicycling, etc. * Restrict stair-climbing for 7 days if possible, if not, climb up with your non -cath leg, then bring together on the same step. * Avoid lifting, pushing, pulling or excessive movement of the affected extremity for 7 days. * Customary sexual activity may be resumed after 2 days-use caution not to use a position that strains or causes pain to the affected extremity. * No driving for 24 hours. * NO SMOKING. * Avoid straining for bowel movements for 7 days. * Gentle walking on level ground is allowed. * Returning to work will depend on the type of procedure and the results. Your doctor will discuss this with you. CALL YOUR DOCTOR FOR ANY OF THE FOLLOWING: *If bleeding from the puncture site occurs- Apply gentle pressure to site with clean cloth and call your doctor or EMS. * If a knot or lump forms under the skin, increases in size, or causes pain. * If bruising appears to be worsening or moving further down your leg instead of disappearing. * Temperature above 101 F. CARE OF YOUR GROIN INCISION; * Bruising or purple discoloration of the skin near the puncture site is common. * You may shower only, no bathtub bathing for 5 days. Be careful to avoid slipping as your leg may feel stiff. * If a closure device was used on your femoral artery, please see the attached guide regarding care of the device and your leg. * Leave the dressing on, until removed by office staff. CARE OF YOUR WRIST INCISION; * Bruising or purple discoloration of the skin near the puncture site is common. * You may shower. * DO NOT submerge wrist. * Leave dressing on, until removed by office staff.. Eliane GREEN MD Apr 25, 2018 14:45
--- OUTSIDE RECORDS SUMMARY | 2018-04-25 14:46 | XMS REPORT | Clinical Summary ---
Author Author Admin, SACHI Organization [employer] Address Unknown Phone Unavailable Allergies, Adverse Reactions, [...] gastroenteritis and colitis DIZZINESS 780.4 Resolved Tu Landerso MD Dizziness and giddiness BENIGN PAROXYSMAL POSITIONAL [...] unspecified Leg pain, left 729.5 Resolved Tu aLnderos MD Pain in limb Vision impairment, both [...] 1 po BID PRN Pain DICLOFENAC SODIUM 29097004258 Active Tu Landeros MD Active GABAPENTIN 100 MG ORAL CAPSULE 1 po TID GABAPENTIN 82305372584 Active Tu Landeros MD Active DICLOFENAC SODIUM 50 MG ORAL TABLET DELAYED RELEASE 1 po BID PRN Pain DICLOFENAC SODIUM 97407412767 No Longer Active Tu Landeros MD Active CYCLOBENZAPRINE HCL 10 MG ORAL TABLET 1 po TID PRN Muscle Spasm CYCLOBENZAPRINE HCL 42054357421 No Longer Active Tu Landeros MD Active INVOKANA 100 MG ORAL TABLET 1 po qd CANAGLIFLOZIN 95519458339 Active Tu Landeros MD Active GLIPIZIDE 5 MG ORAL TABLET 1 po qd GLIPIZIDE 14489841989 No Longer Active Tu Landeros MD Active VENLAFAXINE HCL 75 MG ORAL TABLET 1 po BID VENLAFAXINE HCL 81886648140 Active Tu Landeros MD Active GLIMEPIRIDE 1 MG ORAL TABLET 1 po qd GLIMEPIRIDE 29012322390 No Longer Active Tu Landeros MD Active TRUE METRIX BLOOD GLUCOSE TEST IN VITRO STRIP Test blood sugar BID Dx: E11.9 GLUCOSE BLOOD 71039429292 Active Tu Landeros MD Active TRUE METRIX AIR GLUCOSE METER w/Device KIT Test blood glucose BID Dx: E11.9 BLOOD GLUCOSE MONITORING SUPPL 21013220060 Active Tu Landeros MD Active TRUETEST TEST IN VITRO STRIP test blood sugar twice daily. DX 250.0 GLUCOSE BLOOD 09271388648 No Longer Active Mirna Stanley LPN Active TRUEDRAW LANCING DEVICE test blood sugar twice daily dx: 250.00 LANCET DEVICES 53546251150 No Longer Active Mirna Stanley LPN Active ENALAPRIL MALEATE 20 MG ORAL TABLET 2 po qd ENALAPRIL MALEATE 99372324355 Active Tu Landeros MD Active SUPER B COMPLEX/VITAMIN C ORAL TABLET 1 qd B COMPLEX- C 29130655178 No Longer Active Tu Landeros MD Active ASPIRIN EC 81 MG ORAL TABLET DELAYED RELEASE 1 po qd ASPIRIN 00443220614 Active Tu Landeros MD Active GLUCOSAMINE 500 MG TABS 2 po qd GLUCOSAMINE Active Tu Landeros MD Active SIMVASTATIN 40 MG ORAL TABLET 0.5 po qHS SIMVASTATIN 20166821153 Active Tu Landeros MD Active FISH OIL 1000 MG ORAL CAPSULE 1 po qd OMEGA-3 FATTY ACIDS 07980343906 Active Tu Landeros MD Active METFORMIN HCL 1000 MG ORAL TABLET 1 po BID METFORMIN HCL 09438711942 Active Tu Landeros MD Active KLOR-CON 10 10 MEQ ORAL TABLET EXTENDED RELEASE 2 po qd POTASSIUM CHLORIDE 14832932507 Active Tu Landeros MD Active FUROSEMIDE 40 MG ORAL TABLET 1 po qd FUROSEMIDE 52308438481 Active Tu Landeros MD Active REQUIP 2 MG ORAL TABLET 1 po qHS PRN Restless legs ROPINIROLE HCL 23879426511 Active Tu Landeros MD Active REQUIP 2 MG ORAL TABLET Take one tablet at bedtime prn ROPINIROLE HCL 79462811389 No Longer Active Tu Landeros MD Active VENTOLIN HFA 108 (90 Base) MCG/ACT INHALATION AEROSOL SOLUTION 1-2 puffs every 4 hours if needed for cough/congestion ALBUTEROL SULFATE 54270834365 No Longer Active Ambika Aden APRN Active ZITHROMAX 250 MG ORAL TABLET 2 po today, then 1 po q days 2-5 AZITHROMYCIN 30278977317 No Longer Active Miranda Suresh APRN Active FLONASE 50 MCG/ACT NASAL SUSPENSION 1 spray each nostril twice daily until bottle empty FLUTICASONE PROPIONATE 50821514972 No Longer Active Tu Landeros MD Active COLACE 100 MG ORAL CAPSULE 1 po BID PRN Constipation DOCUSATE SODIUM 11589039555 Active Tu Landeros MD Active TRUERESULT BLOOD GLUCOSE w/Device KIT test blood sugar twice daily dx 250.00 BLOOD GLUCOSE MONITORING SUPPL 64058103524 No Longer Active Tu Landeros MD Active TRUEDRAW LANCING DEVICE Test twice a day dx 250.0 LANCET DEVICES 92413942528 No Longer Active Tu Landeros MD Active PREDNISONE 20 MG ORAL TABLET 2 tablets once daily for 2 days, then 1 tablet once daily for 2 days PREDNISONE 27404239703 No Longer Active Tu Landeros MD Active DICLOFENAC SODIUM 50 MG ORAL TABLET DELAYED RELEASE 1 tablet by mouth three times a day as needed DICLOFENAC SODIUM 99616419002 No Longer Active Fab Morales DO Active EMBRACE BLOOD GLUCOSE TEST IN VITRO STRIP test blood sugar twice daily DX 250.0 GLUCOSE BLOOD 20504797336 No Longer Active Tu Landeros MD Active TRUETEST TEST IN VITRO STRIP test blood sugar three times daily dx: 250.00 GLUCOSE BLOOD 23099658913 No Longer Active Suze Corey RMA Active TRUERESULT BLOOD GLUCOSE w/Device KIT use to test blood sugar tid dx: 250.00 BLOOD GLUCOSE MONITORING SUPPL 72079885149 No Longer Active Suze Corey RMA Active ALIGN 4 MG ORAL CAPSULE 1 tid PROBIOTIC PRODUCT 77789522546 No Longer Active Shaun Sy MD Active CIPRO 500 MG ORAL TABLET 1 bid x 14 days start 09-28-13 CIPROFLOXACIN HCL 87332907502 No Longer Active Shaun Sy MD Active TRAMADOL HCL 50 MG ORAL TABLET 1-2 tablets every 6 hours as needed for pain TRAMADOL HCL 35001717772 Active Tu Landeros MD Active HYDROCODONE-ACETAMINOPHEN 5-325 MG ORAL TABLET 1 tab by mouth every 6 hours as needed for pain HYDROCODONE-ACETAMINOPHEN 74644110376 No Longer Active Tu Landeros MD Active OMEPRAZOLE 20 MG ORAL CAPSULE DELAYED RELEASE 1 po q a.m. OMEPRAZOLE 47256565434 Active Fab Morales DO Active GABAPENTIN 100 MG ORAL CAPSULE 1 po bid GABAPENTIN 48623669124 No Longer Active Tu Landeros MD Active B-12 100 MCG ORAL TABLET Take one by mouth daily CYANOCOBALAMIN 39556325991 No Longer Active Tu Landeros MD Active BACTRIM DS 800-160 MG ORAL TABLET 1 bid x 14 day start 09-28-13 SULFAMETHOXAZOLE-TRIMETHOPRIM 85948119895 No Longer Active Tu Landeros MD Active CARVEDILOL 12.5 MG ORAL TABLET 1 po BID CARVEDILOL 53908058149 Active Tu Landeros MD Active TRILIPIX 135 MG ORAL CAPSULE DELAYED RELEASE 1 q hs CHOLINE FENOFIBRATE 01044477847 Active Tu Landeros MD Active FENOFIBRATE 145 MG ORAL TABLET 1 po qd FENOFIBRATE 61251276663 No Longer Active JASPREET Perez Active OMEPRAZOLE 20 MG ORAL TABLET DELAYED RELEASE 1 PO 30 MIN BEFORE 1ST MEAL 2010 OMEPRAZOLE 97535899557 No Longer Active JASPREET Perez Active SIMVASTATIN 40 MG ORAL TABLET Take one by mouth daily SIMVASTATIN 08832179562 No Longer Active JASPREET Perez Active VENLAFAXINE HCL 75 MG ORAL TABLET 1 po BID VENLAFAXINE HCL 72343706651 No Longer Active JASPREET Perez Active CIPRO 500 MG ORAL TABLET 1 tablet by mouth twice daily CIPROFLOXACIN HCL 78728334930 No Longer Active Tu Landeros MD Active VENLAFAXINE HCL 37.5 MG ORAL TABLET 1 po BID VENLAFAXINE HCL 15256673086 No Longer Active Suze VOGEL Active LAMISIL 250 MG ORAL TABLET 1 po qd TERBINAFINE HCL 16486720972 No Longer Active Tu Landeros MD Active LORTAB 5-500 MG ORAL TABLET 1/2 to 1 tablet by mouth every 4 hours as needed for pain HYDROCODONE-ACETAMINOPHEN 24558227296 No Longer Active Tu Landeros MD Active HYDROCODONE-ACETAMINOPHEN 5-500 MG ORAL TABLET take one po Q 4-6 hours prn HYDROCODONE-ACETAMINOPHEN 14452830392 No Longer Active Tu Landeros MD Active BACTRIM DS 800-160 MG ORAL TABLET 1 po BID x 7 days SULFAMETHOXAZOLE-TRIMETHOPRIM 51234396737 No Longer Active Tu Landeros MD Active VENLAFAXINE HCL 75 MG ORAL TABLET 1 po BID VENLAFAXINE HCL 95118692613 No Longer Active Elvira Cervantes MD PhD Active TRAMADOL HCL 50 MG ORAL TABLET 1 tablets every 6 hours as needed for pain TRAMADOL HCL 40398649891 No Longer Active Tu Landeros MD Active ACCU-CHEK FASTCLIX LANCETS Use to check bloodsugar three times daily as needed LANCETS 33788738586 No Longer Active Tu Landeros MD Active ACCU-CHEK KEYONA PLUS IN VITRO STRIP Use for testing bloodsugars three times daily as needed GLUCOSE BLOOD 45225070587 No Longer Active Tu Landeros MD Active ACCU-CHEK KEYONA PLUS w/Device KIT Use for testing bloodsugars three times daily as needed BLOOD GLUCOSE MONITORING SUPPL 88321147914 No Longer Active Tu Landeros MD Active SPIRONOLACTONE 25 MG ORAL TABLET 0.5 tablet by mouth daily 09/09 SPIRONOLACTONE 30408708970 No Longer Active Tu Landeros MD Active ALPRAZOLAM 0.5 MG ORAL TABLET 1 tab every 6hrs as needed ALPRAZOLAM 65294355622 No Longer Active Tu Landeros MD Active AUGMENTIN 875-125 MG ORAL TABLET 1 tab by mouth twice daily with food AMOXICILLIN-POT CLAVULANATE 07862366506 No Longer Active Tu Landeros MD Active PREDNISONE 20 MG ORAL TABLET 2 tabs daily for 3 days, 1 tab daily for 3 days, 1/2 tab daily for 2 days PREDNISONE 70616755058 No Longer Active Tu Landeros MD Active XANAX 0.5 MG ORAL TABLET 1 tablet every 6 hrs prn ALPRAZOLAM 48629769558 No Longer Active Tu Landeros MD Active PREDNISONE 20 MG ORAL TABLET 2 tabs daily for 3 days, 1 tab daily for 3 days, 1/2 tab daily for 2 days PREDNISONE 90152889442 No Longer Active Tu Landeros MD Active TRIAMCINOLONE ACETONIDE 0.1 % EXTERNAL OINTMENT Apply to affected areas TID for up to 2 weeks TRIAMCINOLONE ACETONIDE 09053422294 No Longer Active Tu Landeros MD Active LORTAB 5-500 MG ORAL TABLET 1/2 to 1 tablet by mouth every 4 hours as needed for pain HYDROCODONE-ACETAMINOPHEN 13338239568 No Longer Active Tu Landeros MD Active MULTIVITAMINS TABS Take one by mouth daily MULTIPLE VITAMIN 01408573321 No Longer Active Tu Landeros MD Active MELATONIN 5 MG ORAL TABLET Take one by mouth daily MELATONIN 65409076315 No Longer Active Tu Landeros MD Active SOMA 350 MG ORAL TABLET 1 po q 6 hours prn spasm CARISOPRODOL 56945732595 No Longer Active Tu Landeros MD Active MECLIZINE HCL 25 MG ORAL TABLET CHEWABLE 1 four times a day as needed for dizziness MECLIZINE HCL 47097196336 No Longer Active Fab Morales DO Active ANGEL BREEZE 2 TEST IN VITRO DISK test tid prn GLUCOSE BLOOD 44022740759 No Longer Active Negra Scott RN Active REGLAN 10 MG ORAL TABLET 1 po TID PRN Nausea METOCLOPRAMIDE HCL 31491875994 No Longer Active Tu Landeros MD Active METFORMIN HCL 500 MG ORAL TABLET 1 PO BID METFORMIN HCL 10302596293 No Longer Active Tu Landeros MD Active AMBIEN 10 MG ORAL TABLET 1 tab by mouth at bedtime as needed for sleep 06/10 ZOLPIDEM TARTRATE 49955350932 No Longer Active Tu Landeros MD Active FLUOXETINE HCL 40 MG ORAL CAPSULE 1 po q day FLUOXETINE HCL 18690578449 No Longer Active Mayra Maxwell Active TRILIPIX 135 MG ORAL CAPSULE DELAYED RELEASE 1 po qd CHOLINE FENOFIBRATE 50839447297 No Longer Active Tu Landeros MD Active AMBIEN 10 MG ORAL TABLET 1 tab by mouth at bedtime as needed for sleep 06/10 AMBIEN 10 MG ORAL TABLET 074608 ZOLPIDEM TARTRATE Inactive METFORMIN HCL 500 MG ORAL TABLET 1 PO BID METFORMIN HCL 500 MG ORAL TABLET 989187 METFORMIN HCL Inactive REGLAN 10 MG ORAL TABLET 1 po TID PRN Nausea REGLAN 10 MG ORAL TABLET 254866 METOCLOPRAMIDE HCL Inactive MECLIZINE HCL 25 MG ORAL TABLET CHEWABLE 1 four times a day as needed for dizziness MECLIZINE HCL 25 MG ORAL TABLET CHEWABLE 938807 MECLIZINE HCL Inactive SOMA 350 MG ORAL TABLET 1 po q 6 hours prn spasm SOMA 350 MG ORAL TABLET 524672 CARISOPRODOL Inactive MELATONIN 5 MG ORAL TABLET Take one by mouth daily MELATONIN 5 MG ORAL TABLET 422923 MELATONIN Inactive MULTIVITAMINS TABS Take one by mouth daily MULTIVITAMINS TABS MULTIPLE VITAMIN Inactive LORTAB 5-500 MG ORAL TABLET 1/2 to 1 tablet by mouth every 4 hours as needed for pain LORTAB 5-500 MG ORAL TABLET 217568 HYDROCODONE-ACETAMINOPHEN Inactive XANAX 0.5 MG ORAL TABLET 1 tablet every 6 hrs prn XANAX 0.5 MG ORAL TABLET 192698 ALPRAZOLAM Inactive AUGMENTIN 875-125 MG ORAL TABLET 1 tab by mouth twice daily with food AUGMENTIN 875-125 MG ORAL TABLET 018897 AMOXICILLIN-POT CLAVULANATE Inactive ALPRAZOLAM 0.5 MG ORAL TABLET 1 tab every 6hrs as needed ALPRAZOLAM 0.5 MG ORAL TABLET 779667 ALPRAZOLAM Inactive SPIRONOLACTONE 25 MG ORAL TABLET 0.5 tablet by mouth daily 09/09 SPIRONOLACTONE 25 MG ORAL TABLET 429523 SPIRONOLACTONE Inactive ACCU-CHEK KEYONA PLUS w/Device KIT [...] times daily as needed ACCU-CHEK FASTCLIX LANCETS 19398603352 LANCETS Inactive TRAMADOL HCL 50 MG ORAL TABLET 1 tablets every 6 hours as needed for pain TRAMADOL HCL 50 MG ORAL TABLET 222490 TRAMADOL HCL Inactive VENLAFAXINE HCL 75 MG ORAL TABLET 1 po BID VENLAFAXINE HCL 75 MG ORAL TABLET 064201 VENLAFAXINE HCL Inactive HYDROCODONE-ACETAMINOPHEN 5-500 MG ORAL TABLET take one po Q 4-6 hours prn HYDROCODONE-ACETAMINOPHEN 5-500 MG ORAL TABLET 349912 HYDROCODONE-ACETAMINOPHEN Inactive LORTAB 5-500 MG ORAL TABLET 1/2 to 1 tablet by mouth every 4 hours as needed for pain LORTAB 5-500 MG ORAL TABLET 610145 HYDROCODONE-ACETAMINOPHEN Inactive LAMISIL 250 MG ORAL TABLET 1 po qd LAMISIL 250 MG ORAL TABLET 901814 TERBINAFINE HCL Inactive VENLAFAXINE HCL 37.5 MG ORAL TABLET 1 po BID VENLAFAXINE HCL 37.5 MG ORAL TABLET 540165 VENLAFAXINE HCL Inactive CIPRO 500 MG ORAL TABLET 1 tablet by mouth twice daily CIPRO 500 MG ORAL TABLET 522901 CIPROFLOXACIN HCL Inactive VENLAFAXINE HCL 75 MG ORAL TABLET 1 po BID VENLAFAXINE HCL 75 MG ORAL TABLET 308415 VENLAFAXINE HCL Inactive SIMVASTATIN 40 MG ORAL TABLET Take one by mouth daily SIMVASTATIN 40 MG ORAL TABLET 244850 SIMVASTATIN Inactive OMEPRAZOLE 20 MG ORAL TABLET DELAYED RELEASE 1 PO 30 MIN BEFORE 1ST MEAL 2010 OMEPRAZOLE 20 MG ORAL TABLET DELAYED RELEASE 566338 OMEPRAZOLE Inactive FENOFIBRATE 145 MG ORAL TABLET 1 po qd FENOFIBRATE 145 MG ORAL TABLET 799811 FENOFIBRATE Inactive BACTRIM DS 800-160 MG ORAL TABLET 1 bid x 14 day start 09-28-13 BACTRIM DS 800-160 MG ORAL TABLET 606207 SULFAMETHOXAZOLE- TRIMETHOPRIM Inactive B-12 100 MCG ORAL TABLET Take one by mouth daily B-12 100 MCG ORAL TABLET CYANOCOBALAMIN Inactive GABAPENTIN 100 MG ORAL CAPSULE 1 po bid GABAPENTIN 100 MG ORAL CAPSULE 935595 GABAPENTIN Inactive HYDROCODONE-ACETAMINOPHEN 5-325 MG ORAL TABLET 1 tab by mouth every 6 hours as needed for pain HYDROCODONE-ACETAMINOPHEN 5-325 MG ORAL TABLET 390354 HYDROCODONE-ACETAMINOPHEN Inactive CIPRO 500 MG ORAL TABLET 1 bid x 14 days start 09-28-13 CIPRO 500 MG ORAL TABLET 080619 CIPROFLOXACIN HCL Inactive ALIGN 4 MG ORAL [...] SODIUM 50 MG ORAL TABLET DELAYED RELEASE 577750 DICLOFENAC SODIUM Inactive PREDNISONE 20 MG ORAL TABLET 2 tablets once daily for 2 days, then 1 tablet once daily for 2 days PREDNISONE 20 MG ORAL TABLET 283507 PREDNISONE Inactive TRUEDRAW LANCING DEVICE Test twice a day dx 250.0 TRUEDRAW LANCING DEVICE LANCET DEVICES Inactive TRUERESULT BLOOD GLUCOSE w/Device KIT test blood sugar twice daily dx 250.00 TRUERESULT BLOOD GLUCOSE w/Device KIT BLOOD GLUCOSE MONITORING SUPPL Inactive FLONASE 50 MCG/ACT NASAL SUSPENSION 1 spray each nostril twice daily until bottle empty FLONASE 50 MCG/ACT NASAL SUSPENSION 5214320 FLUTICASONE PROPIONATE Inactive VENTOLIN HFA 108 (90 Base) MCG/ACT INHALATION AEROSOL SOLUTION 1-2 puffs every 4 hours if needed for cough/congestion VENTOLIN HFA 108 (90 Base) MCG/ACT INHALATION AEROSOL SOLUTION ALBUTEROL SULFATE Inactive REQUIP 2 MG ORAL TABLET Take one tablet at bedtime prn REQUIP 2 MG ORAL TABLET 738885 ROPINIROLE HCL Inactive SUPER B COMPLEX/VITAMIN C ORAL TABLET 1 qd SUPER B COMPLEX/VITAMIN C ORAL TABLET 06267174964 B COMPLEX-C Inactive TRUEDRAW LANCING DEVICE test blood sugar twice daily dx: 250.00 TRUEDRAW LANCING DEVICE LANCET DEVICES Inactive TRUETEST TEST IN VITRO STRIP test blood sugar twice daily. DX 250.0 TRUETEST TEST IN VITRO STRIP GLUCOSE BLOOD Inactive CYCLOBENZAPRINE HCL 10 MG ORAL TABLET 1 po TID PRN Muscle Spasm CYCLOBENZAPRINE HCL 10 MG ORAL TABLET 732396 CYCLOBENZAPRINE HCL Inactive DICLOFENAC SODIUM 50 MG ORAL TABLET DELAYED RELEASE 1 po BID PRN Pain DICLOFENAC SODIUM 50 MG ORAL TABLET DELAYED RELEASE 397032 DICLOFENAC SODIUM Inactive TRIAMCINOLONE ACETONIDE 0.1 % EXTERNAL OINTMENT Apply to affected areas TID for up to 2 weeks TRIAMCINOLONE ACETONIDE 0.1 % EXTERNAL OINTMENT 0622381 TRIAMCINOLONE ACETONIDE Inactive PREDNISONE 20 MG ORAL TABLET 2 tabs daily for 3 days, 1 tab daily for 3 days, 1/2 tab daily for 2 days PREDNISONE 20 MG ORAL TABLET 958288 PREDNISONE Inactive PREDNISONE 20 MG ORAL TABLET 2 tabs daily for 3 days, 1 tab daily for 3 days, 1/2 tab daily for 2 days PREDNISONE 20 MG ORAL TABLET 750342 PREDNISONE Inactive BACTRIM DS 800-160 MG ORAL TABLET 1 po BID x 7 days BACTRIM DS 800-160 MG ORAL TABLET 105494 SULFAMETHOXAZOLE-TRIMETHOPRIM Inactive ZITHROMAX 250 MG ORAL TABLET 2 po today, then 1 po q days 2-5 ZITHROMAX 250 MG ORAL TABLET 652153 AZITHROMYCIN Inactive Advance Directives Directive Description Start Date DISCUSSED WITH PATIENT -- NO DECISION MADE Immunizations Vaccine Administration Date Value Standard Description Seasonal influenza vaccine, injectable, containing preservative, for > 3 years old (Afluria, FluLaval, Fluzone, Fluvirin, Fluarix, Agriflu(>=18 yo)) Fluzone (>3 yrs.) [[id number]] Influenza, seasonal, injectable influenza immunization (Flu Vax) has been administered 02/22/2012 influenza virus vaccine, unspecified formulation Seasonal influenza vaccine, injectable, containing preservative, for > 3 years old (Afluria, FluLaval, Fluzone, Fluvirin, Fluarix, Agriflu(>=18 yo)) Fluzone (>3 yrs.) [[id number]] Influenza, seasonal, injectable Vital Signs Date Name [...] A1c - Chemistry cholesterol, serum 135 mg/dL 974-124 7523/05/17 HDL cholesterol, serum 41 mg/dL > OR=46 triglyceride, serum, fasting 206 mg/dL <150 LDL cholesterol, serum 53 MG/DL (CALC) mg/dL <130 cholesterol/HDL ratio, serum 3.3 (calc) < OR=5.0 Lab Report: HGBA1C - Chemistry hemoglobin A1C, blood, as % of total hemoglobin 6.5 % 4.3-6.0 Encounters Code Encounter Date Provider Facility CPT-15267 Level 3 Est. Patient 14:20:36 CDT Tu Landeros MD [facility] CPT-76963 Level 4 Est. Patient 14:28:34 CDT Tu Landeros MD [facility] CPT-78148 Level 3 Est. Patient 13:33:09 CDT Tu Landeros MD [facility] CPT-25307 Level 4 Est. Patient 14:29:21 CDT Tu Landeros MD [facility] CPT-89401 Level 4 Est. Patient 09:08:17 [employer] Tu Landeros MD [facility] CPT-96196 Level 4 Est. Patient 14:40:19 CDT Tu Landeros MD [facility] CPT-91473 Level 4 Est. Patient 14:06:04 [employer] Tu Landeros MD [facility] CPT-00298 Level 3 Est. Patient 14:05:18 [employer] Tu Landeros MD [facility] CPT-72231 Level 3 Est. Patient 10:06:54 [employer] Miranda Suresh APRN [facility] CPT-61726 Level 4 Est. Patient 13:50:18 [employer] Tu Landeros MD [facility] CPT-25128 Level 3 Est. Patient 10:30:04 CDT Tu Landeros MD [facility] CPT-47577 Level 4 Est. Patient 11:03:38 CDT Tu Landeros MD [facility] CPT-08394 Level 3 Est. Patient 10:20:44 CDT Fab Morales DO [facility] CPT-98429 Level 4 Est. Patient 14:38:57 CDT Tu Landeros MD [facility] CPT-29290 Level 4 Est. Patient 14:27:39 [employer] Tu Landeros MD [facility] CPT-49784 Level 4 Est. Patient 09:45:25 CDT Tu Landeros MD [facility] CPT-97656 Level 4 Est. Patient 09:05:20 [employer] Tu Landeros MD [facility] CPT-28305 Level 4 Est. Patient 14:09:06 CDT Tu Landeros MD [facility] CPT-64836 Level 3 Est. Patient 13:36:54 CDT Tu Landeros MD [facility] CPT-73889 Level 3 Est. Patient 08:59:14 CDT Tu Landeros MD [facility] CPT-52713 Level 3 Est. Patient 13:48:35 CDT Fab Morales DO [facility] CPT-77946 Level 4 Est. Patient 10:05:48 CDT Tu Landeros MD [facility] CPT-73230 Level 3 Est. Patient 13:38:42 CDT Marek BANKS [facility] CPT-33299 Level 5 Est. Patient 08:08:39 CDT Jerrica FRANCIS [facility] CPT-74263 Level 4 Est. Patient 14:23:38 CDT Tu Landeros MD [facility] CPT-07770 Level 3 Est. Patient 11:44:04 CDT Tu Landeros MD [facility] CPT-39223 Level 3 Est. Patient 11:03:20 [employer] Tu Landeros MD [facility] CPT-82523 Level 3 Est. Patient 11:03:14 [employer] Tu Landeros MD [facility] CPT-20560 Level 3 Est. Patient 12:42:49 CDT Tu Landeros MD [facility] CPT-97178 Level 3 Est. Patient 11:52:06 CDT Tu Landeros MD [facility] CPT-78023 Level 3 Est. Patient 13:58:11 CDT Tu Landeros MD [facility] CPT-23338 Level 3 Est. Patient 17:50:07 CDT Fab Morales DO [facility] CPT-44850 Level 3 Est. Patient 12:06:29 CDT Elvira Cervantes MD [facility] CPT-35566 Level 3 Est. Patient 15:50:32 CDT Tu Landeros MD [facility] CPT-45930 Level 4 Est. Patient 16:08:29 CDT Tu Landeros MD [facility] CPT-31766 Level 3 Est. Patient 16:04:19 CDT Tu Landeros MD [facility] CPT-50831 Level 3 Est. Patient 11:22:30 [employer] Tu Landeros MD [facility] CPT-40954 Level 4 Est. Patient 16:24:02 [employer] Tu Landeros MD [facility] CPT-49589 Level 3 Est. Patient 17:21:23 [employer] Tu Landeros MD [facility] Procedures Code Procedure Name Date Entry Date Standard Description CPT-63582 Shoulder, right, comp min 2V - XRAY USE ONLY 13:50:22 CDT CPT-G0009 Administration of Pneumococcal Vaccine 15:08:26 CDT CPT-72798 Prevnar 13 Intramuscular Suspension 15:08:26 CDT 10/08 CPT-G0439 [facility] Annual Wellness Exam 14:29:22 CDT CPT-90318 Venipuncture Draw Fee 13:15:35 CDT CPT-66247 Magnesium - LAB USE ONLY 11:14:20 [employer] CPT-10028 Lipid - LAB USE ONLY 11:14:20 [employer] CPT-20090 HGBA1C - LAB USE ONLY 11:14:20 [employer] CPT-18307 CMP - LAB USE ONLY 11:14:19 [employer] CPT-11229 CBC - LAB USE ONLY 11:14:19 [employer] CPT-53763 Venipuncture Draw Fee 11:14:18 [employer] CPT-70362 First Vx - Ix admin for Medicare patients 16:46:52 CDT CPT-73251 Fluzone Preservative Free Intramuscular Suspension 16:46 :51 CDT CPT-17662 CBC - LAB USE ONLY 17:14:46 CDT CPT-03286 HGBA1C - LAB USE ONLY 17:14:46 CDT CPT-88312 Venipuncture Draw Fee 17:14:46 CDT CPT-G0438 Initial Annual Wellness Exam 14:13:04 CDT CPT-18866 Breathing Tx 10:06:54 [employer] CPT-53553 Postop F/U Visit 10:02:45 CDT CPT-LR Lesion Removal 09:02:56 CDT CPT-JTINJ Asp/Joint Injection 15:51:27 [employer] CPT-OV Office Visit 15:52:02 [employer] CPT-OV Office Visit 15:45:11 CDT CPT-000 Give Zostavax 14:09:06 CDT CPT-42582 Administration single or combination vaccine inc oral 15 :19:04 CDT CPT-36414 Zoster Vaccine (Zostavax) 15:19:04 CDT CPT-47878 Administration single or combination vaccine inc oral 20 :51:03 CDT CPT-60835 Influenza split virus > age 3 20:51:03 CDT CPT-36736 No Charge Offi Visit 14:52:03 CDT CPT-OV Office Visit 14:57:43 CDT CPT-OV Office Visit 15:22:32 CDT CPT-71073 Administration single or combination vaccine inc oral 11 :33:15 CDT CPT-09101 Influenza split virus > age 3 11:33:15 CDT
--- OUTSIDE RECORDS SUMMARY | 2018-04-25 14:47 | XMS REPORT | Clinical Summary ---
Author Author Admin, SACHI Organization [employer] Address Unknown Phone Unavailable Allergies, Adverse [...] site Sinusitis - acute 461.9 Resolved Tu Ladneros MD Acute sinusitis, unspecified Leg pain, left [...] 100 MG CAPS 1 po TID GABAPENTIN 50425047963 Active Tu Landeros MD Active DICLOFENAC SODIUM 50 MG ORAL TBEC 1 po BID PRN Pain DICLOFENAC SODIUM 98662607517 No Longer Active Tu Landeros MD Active CYCLOBENZAPRINE HCL 10 MG ORAL TABS 1 po TID PRN Muscle Spasm CYCLOBENZAPRINE HCL 79160436483 No Longer Active Tu Landeros MD Active INVOKANA 100 MG ORAL TABS 1 po qd CANAGLIFLOZIN 30573734613 Active Tu Landeros MD Active GLIPIZIDE 5 MG ORAL TABS 1 po qd GLIPIZIDE 68652911853 No Longer Active Tu Landeros MD Active VENLAFAXINE HCL 75 MG ORAL TABS 1 po BID VENLAFAXINE HCL 72220965527 Active Tu Landeros MD Active GLIMEPIRIDE 1 MG ORAL TABS 1 po qd GLIMEPIRIDE 74075095596 No Longer Active Tu Landeros MD Active TRUE METRIX BLOOD GLUCOSE TEST INVITR STRP Test blood sugar BID Dx: E11.9 GLUCOSE BLOOD 93124149744 Active Tu Landeros MD Active TRUE METRIX AIR GLUCOSE METER W/DEVICE KIT Test blood glucose BID Dx: E11.9 BLOOD GLUCOSE MONITORING SUPPL 17195238786 Active Tu Landeros MD Active TRUETEST TEST INVITR STRP test blood sugar twice daily. DX 250.0 GLUCOSE BLOOD 71363026941 No Longer Active Mirna Stanley LPN Active TRUEDRAW LANCING DEVICE MISC test blood sugar twice daily dx: 250.00 LANCET DEVICES 03387561185 No Longer Active Mirna Stanley LPN Active ENALAPRIL MALEATE 20 MG TABS 2 po qd ENALAPRIL MALEATE 03237732102 Active Lesli Kellogg APRN Active SUPER B COMPLEX/VITAMIN C TABS 1 qd B COMPLEX-C 17817599234 No Longer Active Tu Landeros MD Active ASPIRIN EC 81 MG ORAL TBEC 1 po qd ASPIRIN 61861257236 Active Tu Landeros MD Active GLUCOSAMINE 500 MG TABS 2 po qd GLUCOSAMINE Active Tu Landeros MD Active SIMVASTATIN 40 MG TABS 0.5 po qHS SIMVASTATIN 42612689579 Active Tu Landeros MD Active FISH OIL 1000 MG CAPS 1 po qd OMEGA-3 FATTY ACIDS 86553669940 Active Tu Landeros MD Active METFORMIN HCL 1000 MG TABS 1 po BID METFORMIN HCL 77288890888 Active Tu Landeros MD Active KLOR-CON 10 10 MEQ CR-TABS 2 po qd POTASSIUM CHLORIDE 49496728554 Active Tu Landeros MD Active FUROSEMIDE 40 MG TAB 1 po qd FUROSEMIDE 51798518481 Active Tu Landeros MD Active REQUIP 2 MG ORAL TABS 1 po qHS PRN Restless legs ROPINIROLE HCL 13693842413 Active Tu Landeros MD Active REQUIP 2 MG TABS Take one tablet at bedtime prn ROPINIROLE HCL 77672433391 No Longer Active Tu Landeros MD Active VENTOLIN HFA 108 (90 BASE) MCG/ACT AERS 1-2 puffs every 4 hours if needed for cough/congestion ALBUTEROL SULFATE 43606624466 No Longer Active Ambika Aden APRN Active ZITHROMAX 250 MG TAB 2 po today, then 1 po q days 2-5 AZITHROMYCIN 10398893743 No Longer Active Miranda Suersh APRN Active FLONASE 50 MCG/ACT SUSP 1 spray each nostril twice daily until bottle empty FLUTICASONE PROPIONATE 44322344664 No Longer Active Tu Landeros MD Active COLACE 100 MG CAP 1 po BID PRN Constipation DOCUSATE SODIUM 68160601864 Active Tu Landeros MD Active TRUERESULT BLOOD GLUCOSE W/DEVICE KIT test blood sugar twice daily dx 250.00 BLOOD GLUCOSE MONITORING SUPPL 35586559334 No Longer Active Tu Landeros MD Active TRUEDRAW LANCING DEVICE MISC Test twice a day dx 250.0 LANCET DEVICES 31446479791 No Longer Active Tu Landeros MD Active PREDNISONE 20 MG TAB 2 tablets once daily for 2 days, then 1 tablet once daily for 2 days PREDNISONE 57213946089 No Longer Active Tu Landeros MD Active DICLOFENAC SODIUM 50 MG TBEC 1 tablet by mouth three times a day as needed DICLOFENAC SODIUM 08652021502 No Longer Active Fab Morales DO Active EMBRACE BLOOD GLUCOSE TEST STRP test blood sugar twice daily DX 250.0 2014 GLUCOSE BLOOD 70937924384 No Longer Active Tu Landeros MD Active TRUETEST TEST STRP test blood sugar three times daily dx: 250.00 GLUCOSE BLOOD 91290860554 No Longer Active Suze Corey RMA Active TRUERESULT BLOOD GLUCOSE W/DEVICE KIT use to test blood sugar tid dx: 250.00 BLOOD GLUCOSE MONITORING SUPPL 87462756496 No Longer Active Suze Corey RMA Active ALIGN 4 MG CAPS 1 tid PROBIOTIC PRODUCT 85274387333 No Longer Active Shaun Sy MD Active CIPRO 500 MG TABS 1 bid x 14 days start 09-28-13 CIPROFLOXACIN HCL 48112870361 No Longer Active Shaun Sy MD Active TRAMADOL HCL 50 MG TABS 1-2 tablets every 6 hours as needed for pain TRAMADOL HCL 29219699610 Active Tu Landeros MD Active HYDROCODONE-ACETAMINOPHEN 5-325 MG TABS 1 tab by mouth every 6 hours as needed for pain HYDROCODONE-ACETAMINOPHEN 01147368799 No Longer Active Tu Landeros MD Active OMEPRAZOLE 20 MG CPDR 1 po q a.m. OMEPRAZOLE 77783538442 Active Fab Morales DO Active GABAPENTIN 100 MG CAPS 1 po bid GABAPENTIN 19473768022 No Longer Active Tu Landeros MD Active B-12 100 MCG TABS Take one by mouth daily CYANOCOBALAMIN 14253065805 No Longer Active Tu Landeros MD Active BACTRIM DS 800-160 MG TABS 1 bid x 14 day start 09-28-13 SULFAMETHOXAZOLE-TRIMETHOPRIM 00686018689 No Longer Active Tu Landeros MD Active CARVEDILOL 12.5 MG TABS 1 po BID CARVEDILOL 61841401024 Active Lesli Kellogg APRN Active TRILIPIX 135 MG CPDR 1 q hs CHOLINE FENOFIBRATE 48518481796 Active Tu Landeros MD Active FENOFIBRATE 145 MG TABS 1 po qd FENOFIBRATE 12901418888 No Longer Active JASPREET Perez Active OMEPRAZOLE 20 MG TBEC 1 PO 30 MIN BEFORE 1ST MEAL OMEPRAZOLE 51473674318 No Longer Active JASPREET Perez Active SIMVASTATIN 40 MG TABS Take one by mouth daily SIMVASTATIN 34686696523 No Longer Active JASPREET Perez Active VENLAFAXINE HCL 75 MG TABS 1 po BID VENLAFAXINE HCL 05426952684 No Longer Active JASPREET Perez Active CIPRO 500 MG TAB 1 tablet by mouth twice daily CIPROFLOXACIN HCL 58943443791 No Longer Active Tu Landeros MD Active VENLAFAXINE HCL 37.5 MG TABS 1 po BID VENLAFAXINE HCL 93892438760 No Longer Active Suzecandido Nicole RMA Active LAMISIL 250 MG TAB 1 po qd TERBINAFINE HCL 18469629747 No Longer Active Tu Landeros MD Active LORTAB 5 5-500 MG TABS 1/2 to 1 tablet by mouth every 4 hours as needed for pain HYDROCODONE-ACETAMINOPHEN 72313823801 No Longer Active Tu Landeros MD Active HYDROCODONE-ACETAMINOPHEN 5-500 MG TABS take one po Q 4-6 hours prn HYDROCODONE-ACETAMINOPHEN 78647541686 No Longer Active Tu Landeros MD Active BACTRIM DS 800-160 MG TABS 1 po BID x 7 days SULFAMETHOXAZOLE-TRIMETHOPRIM 68429117540 No Longer Active Tu Landeros MD Active VENLAFAXINE HCL 75 MG TABS 1 po BID VENLAFAXINE HCL 89392888677 No Longer Active Elvira Cervantes MD PhD Active TRAMADOL HCL 50 MG TABS 1 tablets every 6 hours as needed for pain TRAMADOL HCL 48593431115 No Longer Active Tu Landeros MD Active ACCU-CHEK FASTCLIX LANCETS MISC Use to check bloodsugar three times daily as needed LANCETS 35310759869 No Longer Active Tu Landeros MD Active ACCU-CHEK KEYONA PLUS STRP Use for testing bloodsugars three times daily as needed GLUCOSE BLOOD 30853810969 No Longer Active Tu Landeros MD Active ACCU-CHEK KEYONA PLUS W/DEVICE KIT Use for testing bloodsugars three times daily as needed BLOOD GLUCOSE MONITORING SUPPL 92102404401 No Longer Active Tu Landeros MD Active SPIRONOLACTONE 25 MG TAB 0.5 tablet by mouth daily SPIRONOLACTONE 98762961593 No Longer Active Tu Landeros MD Active ALPRAZOLAM 0.5 MG TABS 1 tab every 6hrs as needed ALPRAZOLAM 32408023368 No Longer Active Tu Landeros MD Active AUGMENTIN 875-125 MG TAB 1 tab by mouth twice daily with food AMOXICILLIN-POT CLAVULANATE 42030475248 No Longer Active Tu Landeros MD Active PREDNISONE 20 MG TAB 2 tabs daily for 3 days, 1 tab daily for 3 days, 1/2 tab daily for 2 days PREDNISONE 03163065873 No Longer Active Tu Landeros MD Active XANAX 0.5 MG TABS 1 tablet every 6 hrs prn ALPRAZOLAM 34338086869 No Longer Active Tu Landeros MD Active PREDNISONE 20 MG TAB 2 tabs daily for 3 days, 1 tab daily for 3 days, 1/2 tab daily for 2 days PREDNISONE 72672675438 No Longer Active Tu Landeros MD Active TRIAMCINOLONE ACETONIDE 0.1 % OINT Apply to affected areas TID for up to 2 weeks TRIAMCINOLONE ACETONIDE 13750616517 No Longer Active Tu Landeros MD Active LORTAB 5 5-500 MG TABS 1/2 to 1 tablet by mouth every 4 hours as needed for pain HYDROCODONE-ACETAMINOPHEN 29733471454 No Longer Active Tu Landeros MD Active MULTIVITAMINS TABS Take one by mouth daily MULTIPLE VITAMIN 62019687565 No Longer Active Tu Landeros MD Active MELATONIN 5 MG TABS Take one by mouth daily MELATONIN 11105358896 No Longer Active Tu Landeros MD Active SOMA 350 MG TAB 1 po q 6 hours prn spasm CARISOPRODOL 89009355150 No Longer Active Tu Landeros MD Active MECLIZINE HCL 25 MG CHEW TAB 1 four times a day as needed for dizziness 08/05 MECLIZINE HCL 78576694168 No Longer Active Fab Morales DO Active ANGEL BREEZE 2 TEST DISK test tid prn GLUCOSE BLOOD 61679081438 No Longer Active Negra Scott RN Active REGLAN 10 MG TAB 1 po TID PRN Nausea METOCLOPRAMIDE HCL 51856589745 No Longer Active Tu Landeros MD Active METFORMIN HCL 500 MG TABS 1 PO BID METFORMIN HCL 87403385651 No Longer Active Tu Landeros MD Active AMBIEN 10 MG TAB 1 tab by mouth at bedtime as needed for sleep ZOLPIDEM TARTRATE 90736037666 No Longer Active Tu Landeros MD Active FLUOXETINE HCL 40 MG CAPS 1 po q day FLUOXETINE HCL 89793395799 No Longer Active Mayra [place] Active TRILIPIX 135 MG CPDR 1 po qd CHOLINE FENOFIBRATE 26898421603 No Longer Active Tu Landeros MD Active ALPRAZOLAM 0.5 MG TABS 1 tab every 6hrs as needed ALPRAZOLAM 0.5 MG TABS 708467 ALPRAZOLAM Inactive AMBIEN 10 MG TAB 1 tab by mouth at bedtime as needed for sleep AMBIEN 10 MG TAB 865702 ZOLPIDEM TARTRATE Inactive BACTRIM DS 800-160 MG TABS 1 po BID x 7 days BACTRIM DS 800-160 MG TABS 446369 SULFAMETHOXAZOLE-TRIMETHOPRIM Inactive BACTRIM DS 800-160 MG TABS 1 bid x 14 day start 09-28-13 BACTRIM DS 800-160 MG TABS 369390 SULFAMETHOXAZOLE-TRIMETHOPRIM Inactive CIPRO 500 MG TABS 1 bid x 14 days start 09-28-13 CIPRO 500 MG TABS 362486 CIPROFLOXACIN HCL Inactive CIPRO 500 MG TAB 1 tablet by mouth twice daily CIPRO 500 MG TAB 643216 CIPROFLOXACIN HCL Inactive CYCLOBENZAPRINE HCL 10 MG ORAL TABS 1 po TID PRN Muscle Spasm CYCLOBENZAPRINE HCL 10 MG ORAL TABS 438095 CYCLOBENZAPRINE HCL Inactive MECLIZINE HCL 25 MG CHEW TAB 1 four times a day as needed for dizziness 08/05 MECLIZINE HCL 25 MG CHEW TAB 127857 MECLIZINE HCL Inactive MULTIVITAMINS TABS Take one by mouth daily MULTIVITAMINS TABS MULTIPLE VITAMIN Inactive PREDNISONE 20 MG TAB 2 tabs daily for 3 days, 1 tab daily for 3 days, 1/2 tab daily for 2 days PREDNISONE 20 MG TAB 478655 PREDNISONE Inactive PREDNISONE 20 MG TAB 2 tabs daily for 3 days, 1 tab daily for 3 days, 1/2 tab daily for 2 days PREDNISONE 20 MG TAB 260918 PREDNISONE Inactive PREDNISONE 20 MG TAB 2 tablets once daily for 2 days, then 1 tablet once daily for 2 days PREDNISONE 20 MG TAB 831556 PREDNISONE Inactive REGLAN 10 MG TAB 1 po TID PRN Nausea REGLAN 10 MG TAB 517971 METOCLOPRAMIDE HCL Inactive SOMA 350 MG TAB 1 po q 6 hours prn spasm SOMA 350 MG TAB 456285 CARISOPRODOL Inactive SPIRONOLACTONE 25 MG TAB 0.5 tablet by mouth daily SPIRONOLACTONE 25 MG TAB 019424 SPIRONOLACTONE Inactive TRIAMCINOLONE ACETONIDE 0.1 % OINT Apply to affected areas TID for up to 2 weeks TRIAMCINOLONE ACETONIDE 0.1 % OINT 8251667 TRIAMCINOLONE ACETONIDE Inactive XANAX 0.5 MG TABS 1 tablet every 6 hrs prn XANAX 0.5 MG TABS 891283 ALPRAZOLAM Inactive METFORMIN HCL 500 MG TABS 1 PO BID METFORMIN HCL 500 MG TABS 750271 METFORMIN HCL Inactive SIMVASTATIN 40 MG TABS Take one by mouth daily SIMVASTATIN 40 MG TABS 354438 SIMVASTATIN Inactive VENLAFAXINE HCL 75 MG TABS 1 po BID VENLAFAXINE HCL 75 MG TABS 209726 VENLAFAXINE HCL Inactive VENLAFAXINE HCL 75 MG TABS 1 po BID VENLAFAXINE HCL 75 MG TABS 869050 VENLAFAXINE HCL Inactive VENLAFAXINE HCL 37.5 MG TABS 1 po BID VENLAFAXINE HCL 37.5 MG TABS 187423 VENLAFAXINE HCL Inactive LORTAB 5 5-500 MG [...] for pain TRAMADOL HCL 50 MG TABS 926376 TRAMADOL HCL Inactive HYDROCODONE-ACETAMINOPHEN 5-500 MG TABS take one po Q 4-6 hours prn HYDROCODONE-ACETAMINOPHEN 5-500 MG TABS HYDROCODONE- ACETAMINOPHEN Inactive DICLOFENAC SODIUM 50 MG TBEC 1 tablet by mouth three times a day as needed DICLOFENAC SODIUM 50 MG TBEC 464367 DICLOFENAC SODIUM Inactive DICLOFENAC SODIUM 50 MG ORAL TBEC 1 po BID PRN Pain DICLOFENAC SODIUM 50 MG ORAL TBEC 885399 DICLOFENAC SODIUM Inactive AUGMENTIN 875-125 MG TAB 1 tab by mouth twice daily with food AUGMENTIN 875-125 MG TAB 804087 AMOXICILLIN-POT CLAVULANATE Inactive LAMISIL 250 MG TAB 1 po qd LAMISIL 250 MG TAB 646348 TERBINAFINE HCL Inactive MELATONIN 5 MG TABS Take one by mouth daily MELATONIN 5 MG TABS 979216 MELATONIN Inactive GABAPENTIN 100 MG CAPS 1 po bid GABAPENTIN 100 MG CAPS 818919 GABAPENTIN Inactive ZITHROMAX 250 MG TAB 2 po today, then 1 po q days 2-5 ZITHROMAX 250 MG TAB 2502736 AZITHROMYCIN Inactive SUPER B COMPLEX/VITAMIN C TABS 1 qd SUPER B COMPLEX/ VITAMIN C TABS 09377043847 B COMPLEX-C Inactive REQUIP 2 MG TABS Take one tablet at bedtime prn REQUIP 2 MG TABS 001624 ROPINIROLE HCL Inactive FLONASE 50 MCG/ACT SUSP 1 spray each nostril twice daily until bottle empty FLONASE 50 MCG/ACT SUSP 5355463 FLUTICASONE PROPIONATE Inactive VENTOLIN HFA 108 (90 BASE) MCG/ACT AERS 1-2 puffs every 4 hours if needed for cough/congestion VENTOLIN HFA 108 (90 BASE) MCG/ACT AERS ALBUTEROL SULFATE Inactive HYDROCODONE-ACETAMINOPHEN 5-325 MG TABS 1 tab by mouth every 6 hours as needed for pain HYDROCODONE-ACETAMINOPHEN 5-325 MG TABS 009099 HYDROCODONE-ACETAMINOPHEN Inactive FENOFIBRATE 145 MG TABS 1 po qd FENOFIBRATE 145 MG TABS 742397 FENOFIBRATE Inactive OMEPRAZOLE 20 MG TBEC 1 PO 30 MIN BEFORE 1ST MEAL OMEPRAZOLE 20 MG TBEC 165568 OMEPRAZOLE Inactive TRUERESULT BLOOD GLUCOSE W/DEVICE KIT [...] daily as needed ACCU-CHEK FASTCLIX LANCETS MISC 22267653978 LANCETS Inactive ACCU-CHEK KEYONA PLUS STRP Use [...] Fluvirin, Fluarix, Agriflu(>=18 yo)) Fluzone (>3 yrs.) [[id number]] Influenza, seasonal, injectable influenza immunization (Flu Vax) has been administered 02/22/2012 influenza virus vaccine, unspecified formulation Seasonal influenza vaccine, injectable, containing preservative, for > 3 years old (Afluria, FluLaval, Fluzone, Fluvirin, Fluarix, Agriflu(>=18 yo)) Fluzone (>3 yrs.) [[id number]] Influenza, seasonal, injectable Vital Signs Date Name [...] Magnesium - Chemistry sodium, serum 143 mmol/L 119-062 0403/01/10 carbon dioxide, venous blood 28.0 mmol/L 21.0-32.0 potassium, serum 4.5 mmol/L 3.5-5.2 chloride, serum 104 mmol/L 98-107 blood glucose 158 mg/dL 65-110 urea nitrogen, blood 23 mg/dL 7-18 creatinine, serum 1.06 mg/dL 0.55-1.30 alanine aminotransferase (SGPT), serum 42 U/L 12-78 aspartate aminotransferase (SGOT), serum 32 U/L 15-37 calcium, serum 9.3 mg/dL 8.5-10.1 bilirubin, serum, total 0.20 mg/dL 0.00-1.00 cholesterol, serum 177 mg/dL 865-722 2998/01/10 triglyceride, serum, fasting 320 mg/dL 30-200 HDL cholesterol, serum 46 mg/dL 32-96 LDL cholesterol, serum 67 mg/dL 0-130 Lab Report: COMPREHENSIVE METABOLIC PANEL, LIPID PANEL, HEMOGLOBIN A1c - Chemistry cholesterol, serum 135 mg/dL 927-060 8133/05/17 HDL cholesterol, serum 41 mg/dL > OR=46 [...] <30 Encounters Code Encounter Date Provider Facility CPT-05257 Level 4 Est. Patient 14:28:34 CDT Tu Landeros MD [facility] CPT-66255 Level 3 Est. Patient 13:33:09 CDT Tu Landeros MD [facility] CPT-84789 Level 4 Est. Patient 14:29:21 CDT Tu Landeros MD [facility] CPT-64963 Level 4 Est. Patient 09:08:17 [employer]SCAST DIRECTOR Tu Landeros MD [facility] CPT-55509 Level 4 Est. Patient 14:40:19 CDT Tu Landeros MD [facility] CPT-46599 Level 4 Est. Patient 14:06:04 NEWSCAST DIRECTOR Tu Landeros MD [facility] CPT-46886 Level 3 Est. Patient 14:05:18 [employer]SCAST DIRECTOR Tu Landeros MD [facility] CPT-40482 Level 3 Est. Patient 10:06:54 [facility] Level 4 Est. Patient 13:50:18 NEWSCAST DIRECTOR Tu Landeros MD [facility] CPT-49731 Level 3 Est. Patient 10:30:04 CDT Tu Landeros MD [facility] CPT-53332 Level 4 Est. Patient 11:03:38 CDT Tu Landeros MD [facility] CPT-23914 Level 3 Est. Patient 10:20:44 CDT Fab Morales DO [facility] CPT-30071 Level 4 Est. Patient 14:38:57 CDT Tu Landeros MD [facility] CPT-64861 Level 4 Est. Patient 14:27:39 NEWSCAST DIRECTOR Tu Landeros MD [facility] CPT-22553 Level 4 Est. Patient 09:45:25 CDT Tu Landeros MD [facility] CPT-39843 Level 4 Est. Patient 09:05:20 NEWSCAST DIRECTOR Tu Landeros MD [facility] CPT-34136 Level 4 Est. Patient 14:09:06 CDT Tu Landeros MD [facility] CPT-06475 Level 3 Est. Patient 13:36:54 CDT Tu Landeros MD [facility] CPT-82717 Level 3 Est. Patient 08:59:14 CDT Tu Landeros MD [facility] CPT-61924 Level 3 Est. Patient 13:48:35 CDT Fab Morales DO [facility] CPT-83129 Level 4 Est. Patient 10:05:48 CDT uT Landeros MD [facility] CPT-71767 Level 3 Est. Patient 13:38:42 CDT Marek BANKS [facility] CPT-69143 Level 5 Est. Patient 08:08:39 CDT Jerrica FRANCIS [facility] CPT-97277 Level 4 Est. Patient 14:23:38 CDT Tu Landeros MD [facility] CPT-94087 Level 3 Est. Patient 11:44:04 CDT Tu Landeros MD [facility] CPT-49547 Level 3 Est. Patient 11:03:20 NEWSCAST DIRECTOR Tu Landeros MD [facility] CPT-10341 Level 3 Est. Patient 11:03:14 [employer]SCAST DIRECTOR Tu Landeros MD [facility] CPT-43194 Level 3 Est. Patient 12:42:49 CDT Tu Landeros MD [facility] CPT-91612 Level 3 Est. Patient 11:52:06 CDT Tu Landeros MD [facility] CPT-83521 Level 3 Est. Patient 13:58:11 CDT Tu Landeros MD [facility] CPT-13311 Level 3 Est. Patient 17:50:07 CDT Fab Morales DO [facility] CPT-33645 Level 3 Est. Patient 12:06:29 CDT Elvira Cervantes MD [facility] CPT-43707 Level 3 Est. Patient 15:50:32 CDT Tu Landeros MD [facility] CPT-85914 Level 4 Est. Patient 16:08:29 CDT Tu Landeros MD [facility] CPT-53723 Level 3 Est. Patient 16:04:19 CDT Tu Landeros MD [facility] CPT-66076 Level 3 Est. Patient 11:22:30 NEWSCAST DIRECTOR Tu Landeros MD [facility] CPT-74735 Level 4 Est. Patient 16:24:02 NEWSCAST DIRECTOR Tu Landeros MD [facility] CPT-59610 Level 3 Est. Patient 17:21:23 [employer]SCAST DIRECTOR Tu Landeros MD [facility] Procedures Code Procedure Name Date Entry Date Standard Description CPT-54723 Shoulder, right, comp min 2V - XRAY USE ONLY 13:50:22 CDT CPT-G0009 Administration of Pneumococcal Vaccine 15:08:26 CDT CPT-94074 Prevnar 13 Intramuscular Suspension 15:08:26 CDT 10/08 CPT-G0439 [facility] Annual Wellness Exam 14:29:22 CDT CPT-69843 Venipuncture Draw Fee 13:15:35 CDT CPT-36005 Magnesium - LAB USE ONLY 11:14:20 [employer]SCAST DIRECTOR CPT-71049 Lipid - LAB USE ONLY 11:14:20 [employer]SCAST DIRECTOR CPT-39920 HGBA1C - LAB USE ONLY 11:14:20 NEWSCAST DIRECTOR CPT-25942 CMP - LAB USE ONLY 11:14:19 NEWSCAST DIRECTOR CPT-30496 CBC - LAB USE ONLY 11:14:19 NEWSCAST DIRECTOR CPT-28947 Venipuncture Draw Fee 11:14:18 NEWSCAST DIRECTOR CPT-52491 First Vx - Ix admin for Medicare patients 16:46:52 CDT CPT-39776 Fluzone Preservative Free Intramuscular Suspension 16:46 :51 CDT CPT-92348 CBC - LAB USE ONLY 17:14:46 CDT CPT-35693 HGBA1C - LAB USE ONLY 17:14:46 CDT CPT-40925 Venipuncture Draw Fee 17:14:46 CDT CPT-G0438 Initial Annual Wellness Exam 14:13:04 CDT CPT-80027 Breathing Tx 10:06:54 [employer]SCAST DIRECTOR CPT-74093 Postop F/U Visit 10:02:45 CDT CPT-LR Lesion Removal 09:02:56 CDT CPT-JTINJ Asp/Joint Injection 15:51:27 NEWSCAST DIRECTOR CPT-OV Office Visit 15:52:02 NEWSCAST DIRECTOR CPT-OV Office Visit 15:45:11 CDT CPT-000 Give Zostavax 14:09:06 CDT CPT-41186 Administration single or combination vaccine inc oral 15 :19:04 CDT CPT-85658 Zoster Vaccine (Zostavax) 15:19:04 CDT CPT-82710 Administration single or combination vaccine inc oral 20 :51:03 CDT CPT-42887 Influenza split virus > age 3 20:51:03 CDT CPT-88982 No Charge Offi Visit 14:52:03 CDT CPT-OV Office Visit 14:57:43 CDT CPT-OV Office Visit 15:22:32 CDT CPT-09594 Administration single or combination vaccine inc oral 11 :33:15 CDT CPT-89746 Influenza split virus > age 3 11:33:15 CDT
--- NOTE | 2018-04-25 14:48 | Cardiology Discharge Summary ---
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 Chief Complaint/HPI Chief Complaint/HPI This is a 62-year-old lady with morbid obesity and shortness of breath. Planning to undergo gastric sleeve surgery. Preoperative cardiovascular risk assessment was recommended. Poor functional capacity. Nuclear stress test showed evidence of anterior ischemia. Therefore coronary angiography was recommended. Discharge Summary Procedures Patent epicardial coronary arteries. 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 Discharge Physical Examination Unremarkable. Hospital Course Chest CTA for ruling out malignant course of the left circumflex artery. Pending Labs Laboratory Tests 04/25/18 12:03: White Blood Count 8.5, Red Blood Count 4.55, Hemoglobin 13.5, Hematocrit 41, Mean Corpuscular Volume 90, Mean Corpuscular Hemoglobin 30, Mean Corpuscular Hemoglobin Concent 33, Red Cell Distribution Width 13.7, Platelet Count 247, Mean Platelet Volume 10.8, Prothrombin Time 13.3, INR Comment 1.0, Activated Partial Thromboplast Time 28, Sodium Level 142, Potassium Level 4.7, Chloride Level 107, Carbon Dioxide Level 25, Anion Gap 10, Blood Urea Nitrogen 15, Creatinine 0.86, Estimat Glomerular Filtration Rate > 60, BUN/Creatinine Ratio 17, Glucose Level 117, Calcium Level 9.7, Corrected Calcium 9.5, Total Bilirubin 0.4, Aspartate Amino Transf (AST/SGOT) 25, Alanine Aminotransferase ( ALT/SGPT) 28, Alkaline Phosphatase 67, Total Protein 7.1, Albumin 4.2, Triglycerides Level 261, Cholesterol Level 196, LDL Cholesterol Direct 123, VLDL Cholesterol 52, HDL Cholesterol 50 Radiology Reviewed Chest CTA Discussion & Recommendations Discussion Discharge instructions discussed at length. Follow up appt.: Dr. Green when necessary. Dicharge Diet: ADA Diet Activity as Tolerated: Yes Home Medications Reviewed patient Home Medication Reconciliation performed by pharmacy medication reconciliations lead technician and/or nursing. Patients Allergies have been reviewed. Discharge Home Medications: Reviewed and agree with Discharge Medication list on patient's Discharge Instruction sheet Condition at discharge Stable. Instructions to patient/family Eliane Linda MD Apr 25, 2018 14:47
--- OUTSIDE RECORDS SUMMARY | 2018-04-25 14:49 | XMS REPORT | Clinical Summary ---
Author Author Admin, SACHI Organization [employer] Address Unknown Phone Unavailable Allergies, Adverse Reactions, [...] MD 2012 SHOULDER PAIN, LEFT ICD-719.41 Inactive uT Landeros MD PARESTHESIA ICD-782.0 Inactive Tu Landeros [...] blood sugar BID Dx: E11.9 GLUCOSE BLOOD 44238420981 Active Tu Landeros MD Active TRUE METRIX AIR GLUCOSE METER W/DEVICE KIT Test blood glucose BID Dx: E11.9 BLOOD GLUCOSE MONITORING SUPPL 80686463680 Active Tu Landeros MD Active TRUETEST TEST INVITR STRP test blood sugar twice daily. DX 250.0 GLUCOSE BLOOD 87477895346 No Longer Active Mirna tSanley LPN Active TRUEDRAW LANCING DEVICE MISC test blood sugar twice daily dx: 250.00 LANCET DEVICES 31559062021 No Longer Active Mirna Stanley LPN Active ENALAPRIL MALEATE 20 MG TABS 2 po qd ENALAPRIL MALEATE 85574890460 Active Tu Landeros MD Active SUPER B COMPLEX/VITAMIN C TABS 1 qd B COMPLEX-C 40207098719 No Longer Active Tu Landeros MD Active ASPIRIN EC 81 MG ORAL TBEC 1 po qd ASPIRIN 34003976237 Active Tu Landeros MD Active GLUCOSAMINE 500 MG TABS 2 po qd GLUCOSAMINE Active Tu Landeros MD Active SIMVASTATIN 40 MG TABS 0.5 po qHS SIMVASTATIN 74699743486 Active Tu Landeros MD Active FISH OIL 1000 MG CAPS 1 po qd OMEGA-3 FATTY ACIDS 22770516363 Active Tu Landeros MD Active METFORMIN HCL 1000 MG TABS 1 po BID METFORMIN HCL 41993989044 Active Tu Landeros MD Active KLOR-CON 10 10 MEQ CR-TABS 2 po qd POTASSIUM CHLORIDE 51851711662 Active Tu Landeros MD Active FUROSEMIDE 40 MG TAB 1 po qd FUROSEMIDE 59742538911 Active Tu Landeros MD Active REQUIP 2 MG ORAL TABS 1 po qHS PRN Restless legs ROPINIROLE HCL 86916129607 Active Tu Landeros MD Active VENLAFAXINE HCL 37.5 MG TABS 1 po BID VENLAFAXINE HCL 75741970513 Active Tu Landeros MD Active GABAPENTIN 100 MG CAPS 1 po BID GABAPENTIN 54929174227 Active Tu Landeros MD Active REQUIP 2 MG TABS Take one tablet at bedtime prn ROPINIROLE HCL 35924022079 No Longer Active Tu Landeros MD Active VENTOLIN HFA 108 (90 BASE) MCG/ACT AERS 1-2 puffs every 4 hours if needed for cough/congestion ALBUTEROL SULFATE 82821116249 No Longer Active Ambika Aden APRN Active ZITHROMAX 250 MG TAB 2 po today, then 1 po q days 2-5 AZITHROMYCIN 91550746623 No Longer Active Miranda Suresh APRN Active FLONASE 50 MCG/ACT SUSP 1 spray each nostril twice daily until bottle empty FLUTICASONE PROPIONATE 62747172008 No Longer Active uT Landeros MD Active COLACE 100 MG CAP 1 po BID PRN Constipation DOCUSATE SODIUM 38941353067 Active Tu Landeros MD Active TRUERESULT BLOOD GLUCOSE W/DEVICE KIT test blood sugar twice daily dx 250.00 BLOOD GLUCOSE MONITORING SUPPL 20578840912 No Longer Active Tu Landeros MD Active TRUEDRAW LANCING DEVICE MISC Test twice a day dx 250.0 LANCET DEVICES 35284233846 No Longer Active Tu Landeros MD Active PREDNISONE 20 MG TAB 2 tablets once daily for 2 days, then 1 tablet once daily for 2 days PREDNISONE 23896602810 No Longer Active Tu Landeros MD Active DICLOFENAC SODIUM 50 MG TBEC 1 tablet by mouth three times a day as needed DICLOFENAC SODIUM 24912885382 No Longer Active aFb Morales DO Active EMBRACE BLOOD GLUCOSE TEST STRP test blood sugar twice daily DX 250.0 2014 GLUCOSE BLOOD 25332596882 No Longer Active Tu Landeros MD Active TRUETEST TEST STRP test blood sugar three times daily dx: 250.00 GLUCOSE BLOOD 64810948446 No Longer Active Suzebianca VOGEL Active TRUERESULT BLOOD GLUCOSE W/DEVICE KIT use to test blood sugar tid dx: 250.00 BLOOD GLUCOSE MONITORING SUPPL 84822591238 No Longer Active Suze VOGEL Active ALIGN 4 MG CAPS 1 tid PROBIOTIC PRODUCT 77550643589 No Longer Active Shaun Sy MD Active CIPRO 500 MG TABS 1 bid x 14 days start 09-28-13 CIPROFLOXACIN HCL 46448355934 No Longer Active Shaun Sy MD Active TRAMADOL HCL 50 MG TABS 1-2 tablets every 6 hours as needed for pain TRAMADOL HCL 23987476753 Active Tu Landeros MD Active HYDROCODONE-ACETAMINOPHEN 5-325 MG TABS 1 tab by mouth every 6 hours as needed for pain HYDROCODONE-ACETAMINOPHEN 18728771510 No Longer Active Tu Landeros MD Active OMEPRAZOLE 20 MG CPDR 1 po q a.m. OMEPRAZOLE 89062607810 Active Tu Landeros MD Active GABAPENTIN 100 MG CAPS 1 po bid GABAPENTIN 62151862258 No Longer Active Tu Landeros MD Active B-12 100 MCG TABS Take one by mouth daily CYANOCOBALAMIN 88214776182 No Longer Active Tu Landeros MD Active BACTRIM DS 800-160 MG TABS 1 bid x 14 day start 09-28-13 SULFAMETHOXAZOLE-TRIMETHOPRIM 88108196566 No Longer Active Tu Landeros MD Active CARVEDILOL 12.5 MG TABS 1 po BID CARVEDILOL 94687089140 Active Tu Landeros MD Active TRILIPIX 135 MG CPDR 1 q hs CHOLINE FENOFIBRATE 38910128084 Active Tu Landeros MD Active FENOFIBRATE 145 MG TABS 1 po qd FENOFIBRATE 12821041994 No Longer Active JASPREET Perez Active OMEPRAZOLE 20 MG TBEC 1 PO 30 MIN BEFORE 1ST MEAL OMEPRAZOLE 63189137885 No Longer Active JASPREET Perez Active SIMVASTATIN 40 MG TABS Take one by mouth daily SIMVASTATIN 85360080039 No Longer Active JASPREET Perez Active VENLAFAXINE HCL 75 MG TABS 1 po BID VENLAFAXINE HCL 08499999048 No Longer Active JASPREET Perez Active CIPRO 500 MG TAB 1 tablet by mouth twice daily CIPROFLOXACIN HCL 89456601488 No Longer Active Tu Landeros MD Active VENLAFAXINE HCL 37.5 MG TABS 1 po BID VENLAFAXINE HCL 67650014891 No Longer Active Suzecandido NUNOA Active LAMISIL 250 MG TAB 1 po qd TERBINAFINE HCL 95066895849 No Longer Active Tu Landeros MD Active LORTAB 5 5-500 MG TABS 1/2 to 1 tablet by mouth every 4 hours as needed for pain HYDROCODONE-ACETAMINOPHEN 73744793503 No Longer Active Tu Landeros MD Active HYDROCODONE-ACETAMINOPHEN 5-500 MG TABS take one po Q 4-6 hours prn HYDROCODONE-ACETAMINOPHEN 63316730357 No Longer Active Tu Landeros MD Active BACTRIM DS 800-160 MG TABS 1 po BID x 7 days SULFAMETHOXAZOLE-TRIMETHOPRIM 00109903310 No Longer Active Tu Landeros MD Active VENLAFAXINE HCL 75 MG TABS 1 po BID VENLAFAXINE HCL 64807916733 No Longer Active Elvira Cervantes MD PhD Active TRAMADOL HCL 50 MG TABS 1 tablets every 6 hours as needed for pain TRAMADOL HCL 98244631528 No Longer Active Tu Landeros MD Active ACCU-CHEK FASTCLIX LANCETS MISC Use to check bloodsugar three times daily as needed LANCETS 35845714213 No Longer Active Tu Landeros MD Active ACCU-CHEK KEYONA PLUS STRP Use for testing bloodsugars three times daily as needed GLUCOSE BLOOD 49709377138 No Longer Active Tu Landeros MD Active ACCU-CHEK KEYONA PLUS W/DEVICE KIT Use for testing bloodsugars three times daily as needed BLOOD GLUCOSE MONITORING SUPPL 39519806140 No Longer Active Tu Landeros MD Active SPIRONOLACTONE 25 MG TAB 0.5 tablet by mouth daily SPIRONOLACTONE 89417796333 No Longer Active Tu Landeros MD Active ALPRAZOLAM 0.5 MG TABS 1 tab every 6hrs as needed ALPRAZOLAM 21166700366 No Longer Active Tu Landeros MD Active AUGMENTIN 875-125 MG TAB 1 tab by mouth twice daily with food AMOXICILLIN-POT CLAVULANATE 61910138414 No Longer Active Tu Landeros MD Active PREDNISONE 20 MG TAB 2 tabs daily for 3 days, 1 tab daily for 3 days, 1/2 tab daily for 2 days PREDNISONE 76925049679 No Longer Active Tu Landeros MD Active XANAX 0.5 MG TABS 1 tablet every 6 hrs prn ALPRAZOLAM 49023400849 No Longer Active Tu Landeros MD Active PREDNISONE 20 MG TAB 2 tabs daily for 3 days, 1 tab daily for 3 days, 1/2 tab daily for 2 days PREDNISONE 83276370984 No Longer Active Tu Landeros MD Active TRIAMCINOLONE ACETONIDE 0.1 % OINT Apply to affected areas TID for up to 2 weeks TRIAMCINOLONE ACETONIDE 58356039099 No Longer Active Tu Landeros MD Active LORTAB 5 5-500 MG TABS 1/2 to 1 tablet by mouth every 4 hours as needed for pain HYDROCODONE-ACETAMINOPHEN 62368634016 No Longer Active Tu Landeros MD Active MULTIVITAMINS TABS Take one by mouth daily MULTIPLE VITAMIN 72027595334 No Longer Active Tu Landeros MD Active MELATONIN 5 MG TABS Take one by mouth daily MELATONIN 51988747747 No Longer Active Tu Landeros MD Active SOMA 350 MG TAB 1 po q 6 hours prn spasm CARISOPRODOL 50739664604 No Longer Active Tu Landeros MD Active MECLIZINE HCL 25 MG CHEW TAB 1 four times a day as needed for dizziness 08/05 MECLIZINE HCL 98786121887 No Longer Active Fab Morales DO Active ANGEL BREEZE 2 TEST DISK test tid prn GLUCOSE BLOOD 68186414805 No Longer Active Negra Scott RN Active REGLAN 10 MG TAB 1 po TID PRN Nausea METOCLOPRAMIDE HCL 20955508754 No Longer Active Tu Landeros MD Active METFORMIN HCL 500 MG TABS 1 PO BID METFORMIN HCL 25947783661 No Longer Active Tu Landeros MD Active AMBIEN 10 MG TAB 1 tab by mouth at bedtime as needed for sleep ZOLPIDEM TARTRATE 63339685471 No Longer Active Tu Landeros MD Active FLUOXETINE HCL 40 MG CAPS 1 po q day FLUOXETINE HCL 01096284889 No Longer Active Mayra Terry Active TRILIPIX 135 MG CPDR 1 po qd CHOLINE FENOFIBRATE 96915117551 No Longer Active Tu Landeros MD Active AMBIEN 10 MG TAB 1 tab by mouth at bedtime as needed for sleep AMBIEN 10 MG TAB 478713 ZOLPIDEM TARTRATE Inactive METFORMIN HCL 500 MG TABS 1 PO BID METFORMIN HCL 500 MG TABS 057476 METFORMIN HCL Inactive REGLAN 10 MG TAB 1 po TID PRN Nausea REGLAN 10 MG TAB 459058 METOCLOPRAMIDE HCL Inactive MECLIZINE HCL 25 MG CHEW TAB 1 four times a day as needed for dizziness 08/05 MECLIZINE HCL 25 MG CHEW TAB 655304 MECLIZINE HCL Inactive SOMA 350 MG TAB 1 po q 6 hours prn spasm SOMA 350 MG TAB 064234 CARISOPRODOL Inactive MELATONIN 5 MG TABS Take one by mouth daily MELATONIN 5 MG TABS 159963 MELATONIN Inactive MULTIVITAMINS TABS Take one by mouth daily MULTIVITAMINS TABS MULTIPLE VITAMIN Inactive LORTAB 5 5-500 MG TABS 1/2 to 1 tablet by mouth every 4 hours as needed for pain LORTAB 5 5-500 MG TABS HYDROCODONE- ACETAMINOPHEN Inactive XANAX 0.5 MG TABS 1 tablet every 6 hrs prn XANAX 0.5 MG TABS 388715 ALPRAZOLAM Inactive AUGMENTIN 875-125 MG TAB 1 tab by mouth twice daily with food AUGMENTIN 875-125 MG TAB 919655 AMOXICILLIN-POT CLAVULANATE Inactive ALPRAZOLAM 0.5 MG TABS 1 tab every 6hrs as needed ALPRAZOLAM 0.5 MG TABS 083311 ALPRAZOLAM Inactive SPIRONOLACTONE 25 MG TAB 0.5 tablet by mouth daily SPIRONOLACTONE 25 MG TAB 385098 SPIRONOLACTONE Inactive ACCU-CHEK KEYONA PLUS W/DEVICE KIT Use for testing bloodsugars three times daily as needed ACCU-CHEK KEYONA PLUS W/DEVICE KIT BLOOD GLUCOSE MONITORING SUPPL Inactive ACCU-CHEK KEYONA PLUS STRP Use for testing bloodsugars three times daily as needed ACCU-CHEK KEYONA PLUS STRP GLUCOSE BLOOD Inactive ACCU-CHEK FASTCLIX LANCETS MISC Use to check bloodsugar three times daily as needed ACCU-CHEK FASTCLIX LANCETS MISC 65230166627 LANCETS Inactive TRAMADOL HCL 50 MG TABS 1 tablets every 6 hours as needed for pain TRAMADOL HCL 50 MG TABS 590125 TRAMADOL HCL Inactive VENLAFAXINE HCL 75 MG TABS 1 po BID VENLAFAXINE HCL 75 MG TABS 549704 VENLAFAXINE HCL Inactive HYDROCODONE-ACETAMINOPHEN 5-500 MG TABS take one po Q 4-6 hours prn HYDROCODONE-ACETAMINOPHEN 5-500 MG TABS HYDROCODONE- ACETAMINOPHEN Inactive LORTAB 5 5-500 MG TABS 1/2 to 1 tablet by mouth every 4 hours as needed for pain LORTAB 5 5-500 MG TABS HYDROCODONE- ACETAMINOPHEN Inactive LAMISIL 250 MG TAB 1 po qd LAMISIL 250 MG TAB 877765 TERBINAFINE HCL Inactive VENLAFAXINE HCL 37.5 MG TABS 1 po BID VENLAFAXINE HCL 37.5 MG TABS 435776 VENLAFAXINE HCL Inactive CIPRO 500 MG TAB 1 tablet by mouth twice daily CIPRO 500 MG TAB 382599 CIPROFLOXACIN HCL Inactive VENLAFAXINE HCL 75 MG TABS 1 po BID VENLAFAXINE HCL 75 MG TABS 214030 VENLAFAXINE HCL Inactive SIMVASTATIN 40 MG TABS Take one by mouth daily SIMVASTATIN 40 MG TABS 812361 SIMVASTATIN Inactive OMEPRAZOLE 20 MG TBEC 1 PO 30 MIN BEFORE 1ST MEAL OMEPRAZOLE 20 MG TBEC 024304 OMEPRAZOLE Inactive FENOFIBRATE 145 MG TABS 1 po qd FENOFIBRATE 145 MG TABS 786990 FENOFIBRATE Inactive BACTRIM DS 800-160 MG TABS 1 bid x 14 day start 09-28-13 BACTRIM DS 800-160 MG TABS 526565 SULFAMETHOXAZOLE-TRIMETHOPRIM Inactive B-12 100 MCG TABS Take one by mouth daily B-12 100 MCG TABS CYANOCOBALAMIN Inactive GABAPENTIN 100 MG CAPS 1 po bid GABAPENTIN 100 MG CAPS 478497 GABAPENTIN Inactive HYDROCODONE-ACETAMINOPHEN 5-325 MG TABS 1 tab by mouth every 6 hours as needed for pain HYDROCODONE-ACETAMINOPHEN 5-325 MG TABS 249782 HYDROCODONE-ACETAMINOPHEN Inactive CIPRO 500 MG TABS 1 bid x 14 days start 09-28-13 CIPRO 500 MG TABS 712736 CIPROFLOXACIN HCL Inactive ALIGN 4 MG CAPS [...] day as needed DICLOFENAC SODIUM 50 MG [facility] 351546 DICLOFENAC SODIUM Inactive PREDNISONE 20 MG TAB 2 tablets once daily for 2 days, then 1 tablet once daily for 2 days PREDNISONE 20 MG TAB 760679 PREDNISONE Inactive TRUEDRAW LANCING DEVICE MISC Test [...] at bedtime prn REQUIP 2 MG TABS 054801 ROPINIROLE HCL Inactive SUPER B COMPLEX/VITAMIN C TABS 1 qd SUPER B COMPLEX/ VITAMIN C TABS 84312688772 B COMPLEX-C Inactive TRUEDRAW LANCING DEVICE MISC test blood sugar twice daily dx: 250.00 TRUEDRAW LANCING DEVICE MISC LANCET DEVICES Inactive TRUETEST TEST INVITR STRP test blood sugar twice daily. DX 250.0 TRUETEST TEST INVITR STRP GLUCOSE BLOOD Inactive TRIAMCINOLONE ACETONIDE 0.1 % OINT Apply to affected areas TID for up to 2 weeks TRIAMCINOLONE ACETONIDE 0.1 % OINT 2164402 TRIAMCINOLONE ACETONIDE Inactive PREDNISONE 20 MG TAB 2 tabs daily for 3 days, 1 tab daily for 3 days, 1/2 tab daily for 2 days PREDNISONE 20 MG TAB 452073 PREDNISONE Inactive PREDNISONE 20 MG TAB 2 tabs daily for 3 days, 1 tab daily for 3 days, 1/2 tab daily for 2 days PREDNISONE 20 MG TAB 339929 PREDNISONE Inactive BACTRIM DS 800-160 MG TABS 1 po BID x 7 days BACTRIM DS 800-160 MG TABS 372007 SULFAMETHOXAZOLE-TRIMETHOPRIM Inactive ZITHROMAX 250 MG TAB 2 po today, then 1 po q days 2-5 ZITHROMAX 250 MG TAB 5321798 AZITHROMYCIN Inactive Advance Directives Directive Description Start Date DISCUSSED WITH PATIENT -- NO DECISION MADE Immunizations Vaccine Administration Date Value Standard Description Seasonal influenza vaccine, injectable, containing preservative, for > 3 years old (Afluria, FluLaval, Fluzone, Fluvirin, Fluarix, Agriflu(>=18 yo)) Fluzone (>3 yrs.) [[id number]] Influenza, seasonal, injectable influenza immunization (Flu Vax) has been administered 02/22/2012 influenza virus vaccine, unspecified formulation Seasonal influenza vaccine, injectable, containing preservative, for > 3 years old (Afluria, FluLaval, Fluzone, Fluvirin, Fluarix, Agriflu(>=18 yo)) Fluzone (>3 yrs.) [[id number]] Influenza, seasonal, injectable Vital Signs Date Name [...] Magnesium - Chemistry sodium, serum 143 mmol/L 183-514 6887/01/10 carbon dioxide, venous blood 28.0 mmol/L 21.0-32.0 potassium, serum 4.5 mmol/L 3.5-5.2 chloride, serum 104 mmol/L 98-107 blood glucose 158 mg/dL 65-110 urea nitrogen, blood 23 mg/dL 7-18 creatinine, serum 1.06 mg/dL 0.55-1.30 alanine aminotransferase (SGPT), serum 42 U/L 12-78 aspartate aminotransferase (SGOT), serum 32 U/L 15-37 calcium, serum 9.3 mg/dL 8.5-10.1 bilirubin, serum, total 0.20 mg/dL 0.00-1.00 cholesterol, serum 177 mg/dL 313-506 1103/01/10 triglyceride, serum, fasting 320 mg/dL 30-200 HDL cholesterol, serum 46 mg/dL 32-96 LDL cholesterol, serum 67 mg/dL 0-130 Lab Report: HGBA1C - Chemistry hemoglobin A1C, blood, as % of total hemoglobin 7.1 % 4.3-6.0 hemoglobin A1C, blood, as % of total hemoglobin 7.4 % 4.3-6.0 sodium, serum 140 mmol/L 132-008 1838/09/07 potassium, serum 4.3 mmol/L 3.5-5.2 chloride, serum [...] <30 Encounters Code Encounter Date Provider Facility CPT-17151 Level 4 Est. Patient 09:08:17 CUSTOMER SERVICE ANALYST Tu Landeros MD [facility] CPT-59119 Level 4 Est. Patient 14:40:19 CDT Tu Landeros MD [facility] CPT-57517 Level 4 Est. Patient 14:06:04 CUSTOMER SERVICE ANALYST Tu Landeros MD [facility] CPT-08626 Level 3 Est. Patient 14:05:18 CUSTOMER SERVICE ANALYST Tu Landeros MD [facility] CPT-24717 Level 3 Est. Patient 10:06:54 CUSTOMER SERVICE ANALYST Miranda Suresh SMASHER HAND [facility] CPT-45494 Level 4 Est. Patient 13:50:18 CUSTOMER SERVICE ANALYST Tu Landeros MD [facility] CPT-94575 Level 3 Est. Patient 10:30:04 CDT Tu Landeros MD [facility] CPT-65174 Level 4 Est. Patient 11:03:38 CDT Tu Landeros MD [facility] CPT-01574 Level 3 Est. Patient 10:20:44 CDT Fab Morales DO [facility] CPT-29398 Level 4 Est. Patient 14:38:57 CDT Tu Landeros MD [facility] CPT-20868 Level 4 Est. Patient 14:27:39 CUSTOMER SERVICE ANALYST Tu Landeros MD [facility] CPT-98126 Level 4 Est. Patient 09:45:25 CDT Tu Landeros MD [facility] CPT-61556 Level 4 Est. Patient 09:05:20 CUSTOMER SERVICE ANALYST Tu Landeros MD [facility] CPT-29635 Level 4 Est. Patient 14:09:06 CDT Tu Landeros MD [facility] CPT-93531 Level 3 Est. Patient 13:36:54 CDT Tu Landeros MD [facility] CPT-54364 Level 3 Est. Patient 08:59:14 CDT Tu Landeros MD [facility] CPT-57558 Level 3 Est. Patient 13:48:35 CDT Fab Morales DO [facility] CPT-51311 Level 4 Est. Patient 10:05:48 CDT Tu Landeros MD [facility] CPT-93494 Level 3 Est. Patient 13:38:42 CDT Marek BANKS [facility] CPT-28161 Level 5 Est. Patient 08:08:39 CDT Jerrica FRANCSI [facility] CPT-45418 Level 4 Est. Patient 14:23:38 CDT Tu Landeros MD [facility] CPT-96377 Level 3 Est. Patient 11:44:04 CDT Tu Landeros MD [facility] CPT-47935 Level 3 Est. Patient 11:03:20 CUSTOMER SERVICE ANALYST Tu Landeros MD [facility] CPT-84853 Level 3 Est. Patient 11:03:14 CUSTOMER SERVICE ANALYST Tu Landeros MD [facility] CPT-19255 Level 3 Est. Patient 12:42:49 CDT Tu Landeros MD [facility] CPT-31778 Level 3 Est. Patient 11:52:06 CDT Tu Landeros MD [facility] CPT-57652 Level 3 Est. Patient 13:58:11 CDT Tu Landeros MD [facility] CPT-38689 Level 3 Est. Patient 17:50:07 CDT Fab Morales DO [facility] CPT-94784 Level 3 Est. Patient 12:06:29 CDT Elvira Cervantes MD [facility] CPT-09999 Level 3 Est. Patient 15:50:32 CDT Tu Landeros MD [facility] CPT-49822 Level 4 Est. Patient 16:08:29 CDT Tu Landeros MD [facility] CPT-01695 Level 3 Est. Patient 16:04:19 CDT Tu Landeros MD [facility] CPT-87858 Level 3 Est. Patient 11:22:30 CUSTOMER SERVICE ANALYST Tu Landeros MD [facility] CPT-73185 Level 4 Est. Patient 16:24:02 CUSTOMER SERVICE ANALYST Tu Landeros MD [facility] CPT-08064 Level 3 Est. Patient 17:21:23 CUSTOMER SERVICE ANALYST Tu Landeros MD [facility] Procedures Code Procedure Name Date Entry Date Standard Description CPT-84956 Magnesium - LAB USE ONLY 11:14:20 CUSTOMER SERVICE ANALYST CPT-66845 Lipid - LAB USE ONLY 11:14:20 CUSTOMER SERVICE ANALYST CPT-13414 HGBA1C - LAB USE ONLY 11:14:20 CUSTOMER SERVICE ANALYST CPT-87672 CMP - LAB USE ONLY 11:14:19 CUSTOMER SERVICE ANALYST CPT-05246 CBC - LAB USE ONLY 11:14:19 CUSTOMER SERVICE ANALYST CPT-63153 Venipuncture Draw Fee 11:14:18 CUSTOMER SERVICE ANALYST CPT-16868 First Vx - Ix admin for Medicare patients 16:46:52 CDT CPT-66709 Fluzone Preservative Free Intramuscular Suspension 16:46 :51 CDT CPT-19920 CBC - LAB USE ONLY 17:14:46 CDT CPT-20977 HGBA1C - LAB USE ONLY 17:14:46 CDT CPT-59115 Venipuncture Draw Fee 17:14:46 CDT CPT-G0438 Initial Annual Wellness Exam 14:13:04 CDT CPT-27843 Breathing Tx 10:06:54 CUSTOMER SERVICE ANALYST CPT-56731 Postop F/U Visit 10:02:45 CDT CPT-LR Lesion Removal 09:02:56 CDT CPT-JTINJ Asp/Joint Injection 15:51:27 CUSTOMER SERVICE ANALYST CPT-OV Office Visit 15:52:02 CUSTOMER SERVICE ANALYST CPT-OV Office Visit 15:45:11 CDT CPT-000 Give Zostavax 14:09:06 CDT CPT-76027 Administration single or combination vaccine inc oral 15 :19:04 CDT CPT-99441 Zoster Vaccine (Zostavax) 15:19:04 CDT CPT-24857 Administration single or combination vaccine inc oral 20 :51:03 CDT CPT-23725 Influenza split virus > age 3 20:51:03 CDT CPT-12555 No Charge Offi Visit 14:52:03 CDT CPT-OV Office Visit 14:57:43 CDT CPT-OV Office Visit 15:22:32 CDT CPT-98833 Administration single or combination vaccine inc oral 11 :33:15 CDT CPT-06459 Influenza split virus > age 3 11:33:15 CDT
--- OUTSIDE RECORDS SUMMARY | 2018-04-25 14:50 | XMS REPORT | Clinical Summary ---
Author Author Admin, SACHI Organization [employer] Address Unknown Phone Unavailable Allergies, Adverse Reactions, [...] unspecified Pain in unspecified foot 729.5 Resolved uT [...] 1 po BID PRN Pain DICLOFENAC SODIUM 24685004605 Active Tu Landeros MD Active GABAPENTIN 100 MG ORAL CAPSULE 1 po TID GABAPENTIN 33432757640 Active Tu Landeros MD Active DICLOFENAC SODIUM 50 MG ORAL TABLET DELAYED RELEASE 1 po BID PRN Pain DICLOFENAC SODIUM 42143581438 No Longer Active Tu Landeros MD Active CYCLOBENZAPRINE HCL 10 MG ORAL TABLET 1 po TID PRN Muscle Spasm CYCLOBENZAPRINE HCL 63733043250 No Longer Active Tu Landeros MD Active INVOKANA 100 MG ORAL TABLET 1 po qd CANAGLIFLOZIN 39576448461 Active Tu Landeros MD Active GLIPIZIDE 5 MG ORAL TABLET 1 po qd GLIPIZIDE 21024454397 No Longer Active Tu Landeros MD Active VENLAFAXINE HCL 75 MG ORAL TABLET 1 po BID VENLAFAXINE HCL 37304005362 Active Tu Landeros MD Active GLIMEPIRIDE 1 MG ORAL TABLET 1 po qd GLIMEPIRIDE 92507137413 No Longer Active Tu Landeros MD Active TRUE METRIX BLOOD GLUCOSE TEST IN VITRO STRIP Test blood sugar BID Dx: E11.9 GLUCOSE BLOOD 07121833752 Active Tu Landeros MD Active TRUE METRIX AIR GLUCOSE METER w/Device KIT Test blood glucose BID Dx: E11.9 BLOOD GLUCOSE MONITORING SUPPL 67203758883 Active uT Landeros MD Active TRUETEST TEST IN VITRO STRIP test blood sugar twice daily. DX 250.0 GLUCOSE BLOOD 53903777015 No Longer Active Mirna Stanley LPN Active TRUEDRAW LANCING DEVICE test blood sugar twice daily dx: 250.00 LANCET DEVICES 63776180508 No Longer Active Mirna Stanley LPN Active ENALAPRIL MALEATE 20 MG ORAL TABLET 2 po qd ENALAPRIL MALEATE 72501518063 Active Tu Landeros MD Active SUPER B COMPLEX/VITAMIN C ORAL TABLET 1 qd B COMPLEX- C 61403426138 No Longer Active Tu Landeros MD Active ASPIRIN EC 81 MG ORAL TABLET DELAYED RELEASE 1 po qd ASPIRIN 97456767481 Active Tu Landeros MD Active GLUCOSAMINE 500 MG TABS 2 po qd GLUCOSAMINE Active Tu Landeros MD Active SIMVASTATIN 40 MG ORAL TABLET 0.5 po qHS SIMVASTATIN 47186640973 Active Tu Landeros MD Active FISH OIL 1000 MG ORAL CAPSULE 1 po qd OMEGA-3 FATTY ACIDS 57488060253 Active Tu Landeros MD Active METFORMIN HCL 1000 MG ORAL TABLET 1 po BID METFORMIN HCL 77795829904 Active Tu Landeros MD Active KLOR-CON 10 10 MEQ ORAL TABLET EXTENDED RELEASE 2 po qd POTASSIUM CHLORIDE 44530215648 Active Tu Landeros MD Active FUROSEMIDE 40 MG ORAL TABLET 1 po qd FUROSEMIDE 07018033029 Active Tu Landeros MD Active REQUIP 2 MG ORAL TABLET 1 po qHS PRN Restless legs ROPINIROLE HCL 85577921482 Active Tu Landeros MD Active REQUIP 2 MG ORAL TABLET Take one tablet at bedtime prn ROPINIROLE HCL 78491016170 No Longer Active Tu Landeros MD Active VENTOLIN HFA 108 (90 Base) MCG/ACT INHALATION AEROSOL SOLUTION 1-2 puffs every 4 hours if needed for cough/congestion ALBUTEROL SULFATE 12798306504 No Longer Active Ambika Aden APRN Active ZITHROMAX 250 MG ORAL TABLET 2 po today, then 1 po q days 2-5 AZITHROMYCIN 64402183051 No Longer Active Miranda Suresh APRN Active FLONASE 50 MCG/ACT NASAL SUSPENSION 1 spray each nostril twice daily until bottle empty FLUTICASONE PROPIONATE 98600252035 No Longer Active Tu Landeros MD Active COLACE 100 MG ORAL CAPSULE 1 po BID PRN Constipation DOCUSATE SODIUM 73085513946 Active Tu Landeros MD Active TRUERESULT BLOOD GLUCOSE w/Device KIT test blood sugar twice daily dx 250.00 BLOOD GLUCOSE MONITORING SUPPL 31463122587 No Longer Active Tu Landeros MD Active TRUEDRAW LANCING DEVICE Test twice a day dx 250.0 LANCET DEVICES 13391968780 No Longer Active Tu Landeros MD Active PREDNISONE 20 MG ORAL TABLET 2 tablets once daily for 2 days, then 1 tablet once daily for 2 days PREDNISONE 12259438084 No Longer Active Tu Landeros MD Active DICLOFENAC SODIUM 50 MG ORAL TABLET DELAYED RELEASE 1 tablet by mouth three times a day as needed DICLOFENAC SODIUM 07504644921 No Longer Active Fab Morales DO Active EMBRACE BLOOD GLUCOSE TEST IN VITRO STRIP test blood sugar twice daily DX 250.0 GLUCOSE BLOOD 12602239266 No Longer Active Tu Landeros MD Active TRUETEST TEST IN VITRO STRIP test blood sugar three times daily dx: 250.00 GLUCOSE BLOOD 22544502789 No Longer Active Suze Corey RMA Active TRUERESULT BLOOD GLUCOSE w/Device KIT use to test blood sugar tid dx: 250.00 BLOOD GLUCOSE MONITORING SUPPL 60449545191 No Longer Active Suze Corey RMA Active ALIGN 4 MG ORAL CAPSULE 1 tid PROBIOTIC PRODUCT 60923731392 No Longer Active Shaun Sy MD Active CIPRO 500 MG ORAL TABLET 1 bid x 14 days start 09-28-13 CIPROFLOXACIN HCL 44634223342 No Longer Active Shaun Sy MD Active TRAMADOL HCL 50 MG ORAL TABLET 1-2 tablets every 6 hours as needed for pain TRAMADOL HCL 59725585654 Active Tu Landeros MD Active HYDROCODONE-ACETAMINOPHEN 5-325 MG ORAL TABLET 1 tab by mouth every 6 hours as needed for pain HYDROCODONE-ACETAMINOPHEN 11664829331 No Longer Active Tu Landeros MD Active OMEPRAZOLE 20 MG ORAL CAPSULE DELAYED RELEASE 1 po q a.m. OMEPRAZOLE 66029333178 Active Fab Morales DO Active GABAPENTIN 100 MG ORAL CAPSULE 1 po bid GABAPENTIN 13449996782 No Longer Active Tu Landeros MD Active B-12 100 MCG ORAL TABLET Take one by mouth daily CYANOCOBALAMIN 58732036111 No Longer Active Tu Landeros MD Active BACTRIM DS 800-160 MG ORAL TABLET 1 bid x 14 day start 09-28-13 SULFAMETHOXAZOLE-TRIMETHOPRIM 74366117743 No Longer Active Tu Landeros MD Active CARVEDILOL 12.5 MG ORAL TABLET 1 po BID CARVEDILOL 46324796324 Active Tu Landeros MD Active TRILIPIX 135 MG ORAL CAPSULE DELAYED RELEASE 1 q hs CHOLINE FENOFIBRATE 73242342148 Active Tu Landeros MD Active FENOFIBRATE 145 MG ORAL TABLET 1 po qd FENOFIBRATE 78150405590 No Longer Active JASPREET Perez Active OMEPRAZOLE 20 MG ORAL TABLET DELAYED RELEASE 1 PO 30 MIN BEFORE 1ST MEAL 2010 OMEPRAZOLE 49380308000 No Longer Active JASPREET Perez Active SIMVASTATIN 40 MG ORAL TABLET Take one by mouth daily SIMVASTATIN 94224613802 No Longer Active JASPREET Perez Active VENLAFAXINE HCL 75 MG ORAL TABLET 1 po BID VENLAFAXINE HCL 49412173473 No Longer Active JASPREET Perez Active CIPRO 500 MG ORAL TABLET 1 tablet by mouth twice daily CIPROFLOXACIN HCL 36995866821 No Longer Active Tu Landeros MD Active VENLAFAXINE HCL 37.5 MG ORAL TABLET 1 po BID VENLAFAXINE HCL 25635066700 No Longer Active Suze VOGEL Active LAMISIL 250 MG ORAL TABLET 1 po qd TERBINAFINE HCL 17684506837 No Longer Active Tu Landeros MD Active LORTAB 5-500 MG ORAL TABLET 1/2 to 1 tablet by mouth every 4 hours as needed for pain HYDROCODONE-ACETAMINOPHEN 34406724663 No Longer Active Tu Landeros MD Active HYDROCODONE-ACETAMINOPHEN 5-500 MG ORAL TABLET take one po Q 4-6 hours prn HYDROCODONE-ACETAMINOPHEN 63681375677 No Longer Active Tu Landeros MD Active BACTRIM DS 800-160 MG ORAL TABLET 1 po BID x 7 days SULFAMETHOXAZOLE-TRIMETHOPRIM 34465596568 No Longer Active Tu Landeros MD Active VENLAFAXINE HCL 75 MG ORAL TABLET 1 po BID VENLAFAXINE HCL 32066065760 No Longer Active Elvira Cervantes MD PhD Active TRAMADOL HCL 50 MG ORAL TABLET 1 tablets every 6 hours as needed for pain TRAMADOL HCL 38650125907 No Longer Active Tu Landeros MD Active ACCU-CHEK FASTCLIX LANCETS Use to check bloodsugar three times daily as needed LANCETS 32244695373 No Longer Active Tu Landeros MD Active ACCU-CHEK KEYONA PLUS IN VITRO STRIP Use for testing bloodsugars three times daily as needed GLUCOSE BLOOD 39632492623 No Longer Active Tu Landeros MD Active ACCU-CHEK KEYONA PLUS w/Device KIT Use for testing bloodsugars three times daily as needed BLOOD GLUCOSE MONITORING SUPPL 82842898022 No Longer Active Tu Landeros MD Active SPIRONOLACTONE 25 MG ORAL TABLET 0.5 tablet by mouth daily 09/09 SPIRONOLACTONE 07491715305 No Longer Active Tu Landeros MD Active ALPRAZOLAM 0.5 MG ORAL TABLET 1 tab every 6hrs as needed ALPRAZOLAM 03189326622 No Longer Active Tu Landeros MD Active AUGMENTIN 875-125 MG ORAL TABLET 1 tab by mouth twice daily with food AMOXICILLIN-POT CLAVULANATE 94070758292 No Longer Active Tu Landeros MD Active PREDNISONE 20 MG ORAL TABLET 2 tabs daily for 3 days, 1 tab daily for 3 days, 1/2 tab daily for 2 days PREDNISONE 21162180063 No Longer Active Tu Landeros MD Active XANAX 0.5 MG ORAL TABLET 1 tablet every 6 hrs prn ALPRAZOLAM 37700639528 No Longer Active Tu Landeros MD Active PREDNISONE 20 MG ORAL TABLET 2 tabs daily for 3 days, 1 tab daily for 3 days, 1/2 tab daily for 2 days PREDNISONE 20153037336 No Longer Active Tu Landeros MD Active TRIAMCINOLONE ACETONIDE 0.1 % EXTERNAL OINTMENT Apply to affected areas TID for up to 2 weeks TRIAMCINOLONE ACETONIDE 40205182117 No Longer Active Tu Landeros MD Active LORTAB 5-500 MG ORAL TABLET 1/2 to 1 tablet by mouth every 4 hours as needed for pain HYDROCODONE-ACETAMINOPHEN 89185945247 No Longer Active Tu Landeros MD Active MULTIVITAMINS TABS Take one by mouth daily MULTIPLE VITAMIN 08939166680 No Longer Active Tu Landeros MD Active MELATONIN 5 MG ORAL TABLET Take one by mouth daily MELATONIN 80678047420 No Longer Active Tu Ladneros MD Active SOMA 350 MG ORAL TABLET 1 po q 6 hours prn spasm CARISOPRODOL 81739733017 No Longer Active Tu Landeros MD Active MECLIZINE HCL 25 MG ORAL TABLET CHEWABLE 1 four times a day as needed for dizziness MECLIZINE HCL 14357559967 No Longer Active Fab Morales DO Active ANGEL BREEZE 2 TEST IN VITRO DISK test tid prn GLUCOSE BLOOD 96976092917 No Longer Active Negra Scott RN Active REGLAN 10 MG ORAL TABLET 1 po TID PRN Nausea METOCLOPRAMIDE HCL 31510144325 No Longer Active Tu Landeros MD Active METFORMIN HCL 500 MG ORAL TABLET 1 PO BID METFORMIN HCL 60187414633 No Longer Active Tu Landeros MD Active AMBIEN 10 MG ORAL TABLET 1 tab by mouth at bedtime as needed for sleep 06/10 ZOLPIDEM TARTRATE 81991567106 No Longer Active Tu Landeros MD Active FLUOXETINE HCL 40 MG ORAL CAPSULE 1 po q day FLUOXETINE HCL 89610311243 No Longer Active Mayra Montandon Active TRILIPIX 135 MG ORAL CAPSULE DELAYED RELEASE 1 po qd CHOLINE FENOFIBRATE 78505902978 No Longer Active Tu Landeros MD Active AMBIEN 10 MG ORAL TABLET 1 tab by mouth at bedtime as needed for sleep 06/10 AMBIEN 10 MG ORAL TABLET 116952 ZOLPIDEM TARTRATE Inactive METFORMIN HCL 500 MG ORAL TABLET 1 PO BID METFORMIN HCL 500 MG ORAL TABLET 999403 METFORMIN HCL Inactive REGLAN 10 MG ORAL TABLET 1 po TID PRN Nausea REGLAN 10 MG ORAL TABLET 443909 METOCLOPRAMIDE HCL Inactive MECLIZINE HCL 25 MG ORAL TABLET CHEWABLE 1 four times a day as needed for dizziness MECLIZINE HCL 25 MG ORAL TABLET CHEWABLE 180296 MECLIZINE HCL Inactive SOMA 350 MG ORAL TABLET 1 po q 6 hours prn spasm SOMA 350 MG ORAL TABLET 996283 CARISOPRODOL Inactive MELATONIN 5 MG ORAL TABLET Take one by mouth daily MELATONIN 5 MG ORAL TABLET 897996 MELATONIN Inactive MULTIVITAMINS TABS Take one by mouth daily MULTIVITAMINS TABS MULTIPLE VITAMIN Inactive LORTAB 5-500 MG ORAL TABLET 1/2 to 1 tablet by mouth every 4 hours as needed for pain LORTAB 5-500 MG ORAL TABLET 426705 HYDROCODONE-ACETAMINOPHEN Inactive XANAX 0.5 MG ORAL TABLET 1 tablet every 6 hrs prn XANAX 0.5 MG ORAL TABLET 726761 ALPRAZOLAM Inactive AUGMENTIN 875-125 MG ORAL TABLET 1 tab by mouth twice daily with food AUGMENTIN 875-125 MG ORAL TABLET 347684 AMOXICILLIN-POT CLAVULANATE Inactive ALPRAZOLAM 0.5 MG ORAL TABLET 1 tab every 6hrs as needed ALPRAZOLAM 0.5 MG ORAL TABLET 619695 ALPRAZOLAM Inactive SPIRONOLACTONE 25 MG ORAL TABLET 0.5 tablet by mouth daily 09/09 SPIRONOLACTONE 25 MG ORAL TABLET 839508 SPIRONOLACTONE Inactive ACCU-CHEK KEYONA PLUS w/Device KIT [...] times daily as needed ACCU-CHEK FASTCLIX LANCETS 63101247504 LANCETS Inactive TRAMADOL HCL 50 MG ORAL TABLET 1 tablets every 6 hours as needed for pain TRAMADOL HCL 50 MG ORAL TABLET 074772 TRAMADOL HCL Inactive VENLAFAXINE HCL 75 MG ORAL TABLET 1 po BID VENLAFAXINE HCL 75 MG ORAL TABLET 199642 VENLAFAXINE HCL Inactive HYDROCODONE-ACETAMINOPHEN 5-500 MG ORAL TABLET take one po Q 4-6 hours prn HYDROCODONE-ACETAMINOPHEN 5-500 MG ORAL TABLET 855596 HYDROCODONE-ACETAMINOPHEN Inactive LORTAB 5-500 MG ORAL TABLET 1/2 to 1 tablet by mouth every 4 hours as needed for pain LORTAB 5-500 MG ORAL TABLET 847723 HYDROCODONE-ACETAMINOPHEN Inactive LAMISIL 250 MG ORAL TABLET 1 po qd LAMISIL 250 MG ORAL TABLET 433250 TERBINAFINE HCL Inactive VENLAFAXINE HCL 37.5 MG ORAL TABLET 1 po BID VENLAFAXINE HCL 37.5 MG ORAL TABLET 112193 VENLAFAXINE HCL Inactive CIPRO 500 MG ORAL TABLET 1 tablet by mouth twice daily CIPRO 500 MG ORAL TABLET 086717 CIPROFLOXACIN HCL Inactive VENLAFAXINE HCL 75 MG ORAL TABLET 1 po BID VENLAFAXINE HCL 75 MG ORAL TABLET 131620 VENLAFAXINE HCL Inactive SIMVASTATIN 40 MG ORAL TABLET Take one by mouth daily SIMVASTATIN 40 MG ORAL TABLET 162279 SIMVASTATIN Inactive OMEPRAZOLE 20 MG ORAL TABLET DELAYED RELEASE 1 PO 30 MIN BEFORE 1ST MEAL 2010 OMEPRAZOLE 20 MG ORAL TABLET DELAYED RELEASE 443269 OMEPRAZOLE Inactive FENOFIBRATE 145 MG ORAL TABLET 1 po qd FENOFIBRATE 145 MG ORAL TABLET 714246 FENOFIBRATE Inactive BACTRIM DS 800-160 MG ORAL TABLET 1 bid x 14 day start 09-28-13 BACTRIM DS 800-160 MG ORAL TABLET 189867 SULFAMETHOXAZOLE- TRIMETHOPRIM Inactive B-12 100 MCG ORAL TABLET Take one by mouth daily B-12 100 MCG ORAL TABLET CYANOCOBALAMIN Inactive GABAPENTIN 100 MG ORAL CAPSULE 1 po bid GABAPENTIN 100 MG ORAL CAPSULE 629736 GABAPENTIN Inactive HYDROCODONE-ACETAMINOPHEN 5-325 MG ORAL TABLET 1 tab by mouth every 6 hours as needed for pain HYDROCODONE-ACETAMINOPHEN 5-325 MG ORAL TABLET 558732 HYDROCODONE-ACETAMINOPHEN Inactive CIPRO 500 MG ORAL TABLET 1 bid x 14 days start 09-28-13 CIPRO 500 MG ORAL TABLET 136152 CIPROFLOXACIN HCL Inactive ALIGN 4 MG ORAL [...] SODIUM 50 MG ORAL TABLET DELAYED RELEASE 849960 DICLOFENAC SODIUM Inactive PREDNISONE 20 MG ORAL TABLET 2 tablets once daily for 2 days, then 1 tablet once daily for 2 days PREDNISONE 20 MG ORAL TABLET 014642 PREDNISONE Inactive TRUEDRAW LANCING DEVICE Test twice a day dx 250.0 TRUEDRAW LANCING DEVICE LANCET DEVICES Inactive TRUERESULT BLOOD GLUCOSE w/Device KIT test blood sugar twice daily dx 250.00 TRUERESULT BLOOD GLUCOSE w/Device KIT BLOOD GLUCOSE MONITORING SUPPL Inactive FLONASE 50 MCG/ACT NASAL SUSPENSION 1 spray each nostril twice daily until bottle empty FLONASE 50 MCG/ACT NASAL SUSPENSION 5246544 FLUTICASONE PROPIONATE Inactive VENTOLIN HFA 108 (90 Base) MCG/ACT INHALATION AEROSOL SOLUTION 1-2 puffs every 4 hours if needed for cough/congestion VENTOLIN HFA 108 (90 Base) MCG/ACT INHALATION AEROSOL SOLUTION ALBUTEROL SULFATE Inactive REQUIP 2 MG ORAL TABLET Take one tablet at bedtime prn REQUIP 2 MG ORAL TABLET 929197 ROPINIROLE HCL Inactive SUPER B COMPLEX/VITAMIN C ORAL TABLET 1 qd SUPER B COMPLEX/VITAMIN C ORAL TABLET 69750372955 B COMPLEX-C Inactive TRUEDRAW LANCING DEVICE test blood sugar twice daily dx: 250.00 TRUEDRAW LANCING DEVICE LANCET DEVICES Inactive TRUETEST TEST IN VITRO STRIP test blood sugar twice daily. DX 250.0 TRUETEST TEST IN VITRO STRIP GLUCOSE BLOOD Inactive CYCLOBENZAPRINE HCL 10 MG ORAL TABLET 1 po TID PRN Muscle Spasm CYCLOBENZAPRINE HCL 10 MG ORAL TABLET 830461 CYCLOBENZAPRINE HCL Inactive DICLOFENAC SODIUM 50 MG ORAL TABLET DELAYED RELEASE 1 po BID PRN Pain DICLOFENAC SODIUM 50 MG ORAL TABLET DELAYED RELEASE 618728 DICLOFENAC SODIUM Inactive TRIAMCINOLONE ACETONIDE 0.1 % EXTERNAL OINTMENT Apply to affected areas TID for up to 2 weeks TRIAMCINOLONE ACETONIDE 0.1 % EXTERNAL OINTMENT 1636608 TRIAMCINOLONE ACETONIDE Inactive PREDNISONE 20 MG ORAL TABLET 2 tabs daily for 3 days, 1 tab daily for 3 days, 1/2 tab daily for 2 days PREDNISONE 20 MG ORAL TABLET 535721 PREDNISONE Inactive PREDNISONE 20 MG ORAL TABLET 2 tabs daily for 3 days, 1 tab daily for 3 days, 1/2 tab daily for 2 days PREDNISONE 20 MG ORAL TABLET 280133 PREDNISONE Inactive BACTRIM DS 800-160 MG ORAL TABLET 1 po BID x 7 days BACTRIM DS 800-160 MG ORAL TABLET 908716 SULFAMETHOXAZOLE-TRIMETHOPRIM Inactive ZITHROMAX 250 MG ORAL TABLET 2 po today, then 1 po q days 2-5 ZITHROMAX 250 MG ORAL TABLET 461529 AZITHROMYCIN Inactive Advance Directives Directive Description Start Date DISCUSSED WITH PATIENT -- NO DECISION MADE Immunizations Vaccine Administration Date Value Standard Description Seasonal influenza vaccine, injectable, containing preservative, for > 3 years old (Afluria, FluLaval, Fluzone, Fluvirin, Fluarix, Agriflu(>=18 yo)) Fluzone (>3 yrs.) [[id number]] Influenza, seasonal, injectable influenza immunization (Flu Vax) has been administered 02/22/2012 influenza virus vaccine, unspecified formulation Seasonal influenza vaccine, injectable, containing preservative, for > 3 years old (Afluria, FluLaval, Fluzone, Fluvirin, Fluarix, Agriflu(>=18 yo)) Fluzone (>3 yrs.) [[id number]] Influenza, seasonal, injectable Vital Signs Date Name [...] Magnesium - Chemistry sodium, serum 143 mmol/L 953-211 0218/01/10 carbon dioxide, venous blood 28.0 mmol/L 21.0-32.0 potassium, serum 4.5 mmol/L 3.5-5.2 chloride, serum 104 mmol/L 98-107 blood glucose 158 mg/dL 65-110 urea nitrogen, blood 23 mg/dL 7-18 creatinine, serum 1.06 mg/dL 0.55-1.30 alanine aminotransferase (SGPT), serum 42 U/L 12-78 aspartate aminotransferase (SGOT), serum 32 U/L 15-37 calcium, serum 9.3 mg/dL 8.5-10.1 bilirubin, serum, total 0.20 mg/dL 0.00-1.00 cholesterol, serum 177 mg/dL 117-326 0643/01/10 triglyceride, serum, fasting 320 mg/dL 30-200 HDL cholesterol, serum 46 mg/dL 32-96 LDL cholesterol, serum 67 mg/dL 0-130 Lab Report: COMPREHENSIVE METABOLIC PANEL, LIPID PANEL, HEMOGLOBIN A1c - Chemistry cholesterol, serum 135 mg/dL 389-381 4555/05/17 HDL cholesterol, serum 41 mg/dL > OR=46 [...] <30 Encounters Code Encounter Date Provider Facility CPT-04484 Level 3 Est. Patient 14:20:36 CDT Tu Landeros MD [facility] CPT-10162 Level 4 Est. Patient 14:28:34 CDT Tu Landeros MD [facility] CPT-33990 Level 3 Est. Patient 13:33:09 CDT Tu Landeros MD [facility] CPT-95446 Level 4 Est. Patient 14:29:21 CDT Tu Landeros MD [facility] CPT-30903 Level 4 Est. Patient 09:08:17 CRANE OILER Tu Landeros MD [facility] CPT-61199 Level 4 Est. Patient 14:40:19 CDT Tu Landeros MD [facility] CPT-61690 Level 4 Est. Patient 14:06:04 CRANE OILER Tu Landeros MD [facility] CPT-80468 Level 3 Est. Patient 14:05:18 CRANE OILER Tu Landeros MD [facility] CPT-55184 Level 3 Est. Patient 10:06:54 CRANE OILER Miranda Suresh APRN [facility] CPT-36938 Level 4 Est. Patient 13:50:18 CRANE OILER Tu Landeros MD [facility] CPT-86749 Level 3 Est. Patient 10:30:04 CDT Tu Landeros MD [facility] CPT-23373 Level 4 Est. Patient 11:03:38 CDT Tu Landeros MD [facility] CPT-99835 Level 3 Est. Patient 10:20:44 CDT Fab Morales DO [facility] CPT-71917 Level 4 Est. Patient 14:38:57 CDT Tu Landeros MD [facility] CPT-67864 Level 4 Est. Patient 14:27:39 CRANE OILER Tu Landeros MD [facility] CPT-07756 Level 4 Est. Patient 09:45:25 CDT Tu Landeros MD [facility] CPT-68268 Level 4 Est. Patient 09:05:20 CRANE OILER Tu Landeros MD [facility] CPT-84319 Level 4 Est. Patient 14:09:06 CDT Tu Landeros MD [facility] CPT-55054 Level 3 Est. Patient 13:36:54 CDT Tu Landeros MD [facility] CPT-38031 Level 3 Est. Patient 08:59:14 CDT Tu Landeros MD [facility] CPT-07529 Level 3 Est. Patient 13:48:35 CDT Fab Morales DO [facility] CPT-28517 Level 4 Est. Patient 10:05:48 CDT Tu Landeros MD [facility] CPT-58884 Level 3 Est. Patient 13:38:42 CDT Marek BANKS [facility] CPT-53147 Level 5 Est. Patient 08:08:39 CDT Jerrica FRANCIS [facility] CPT-17465 Level 4 Est. Patient 14:23:38 CDT Tu Landeors MD [facility] CPT-39219 Level 3 Est. Patient 11:44:04 CDT Tu Landeros MD [facility] CPT-55091 Level 3 Est. Patient 11:03:20 CRANE OILER Tu Landeros MD [facility] CPT-56009 Level 3 Est. Patient 11:03:14 CRANE OILER Tu Landeros MD [facility] CPT-46297 Level 3 Est. Patient 12:42:49 CDT Tu Landeros MD [facility] CPT-56320 Level 3 Est. Patient 11:52:06 CDT Tu Landeros MD [facility] CPT-94437 Level 3 Est. Patient 13:58:11 CDT Tu Landeros MD [facility] CPT-81414 Level 3 Est. Patient 17:50:07 CDT Fab Morales DO [facility] CPT-22342 Level 3 Est. Patient 12:06:29 CDT Elvira Cervantes MD [facility] CPT-43991 Level 3 Est. Patient 15:50:32 CDT Tu Landeros MD [facility] CPT-69514 Level 4 Est. Patient 16:08:29 CDT Tu Landeros MD [facility] CPT-36655 Level 3 Est. Patient 16:04:19 CDT Tu Landeros MD [facility] CPT-73822 Level 3 Est. Patient 11:22:30 CRANE OILER Tu Landeros MD [facility] CPT-75120 Level 4 Est. Patient 16:24:02 CRANE OILER Tu Landeros MD [facility] CPT-39946 Level 3 Est. Patient 17:21:23 CRANE OILER Tu Landeros MD [facility] Procedures Code Procedure Name Date Entry Date Standard Description CPT-06036 Shoulder, right, comp min 2V - XRAY USE ONLY 13:50:22 CDT CPT-G0009 Administration of Pneumococcal Vaccine 15:08:26 CDT CPT-96749 Prevnar 13 Intramuscular Suspension 15:08:26 CDT 10/08 CPT-G0439 Subsequent Annual Wellness Exam 14:29:22 CDT CPT-80075 Venipuncture Draw Fee 13:15:35 CDT CPT-48489 Magnesium - LAB USE ONLY 11:14:20 CRANE OILER CPT-23797 Lipid - LAB USE ONLY 11:14:20 CRANE OILER CPT-94521 HGBA1C - LAB USE ONLY 11:14:20 CRANE OILER CPT-61235 CMP - LAB USE ONLY 11:14:19 CRANE OILER CPT-58034 CBC - LAB USE ONLY 11:14:19 CRANE OILER CPT-88016 Venipuncture Draw Fee 11:14:18 CRANE OILER CPT-90596 First Vx - Ix admin for Medicare patients 16:46:52 CDT CPT-92844 Fluzone Preservative Free Intramuscular Suspension 16:46 :51 CDT CPT-58993 CBC - LAB USE ONLY 17:14:46 CDT CPT-71710 HGBA1C - LAB USE ONLY 17:14:46 CDT CPT-53580 Venipuncture Draw Fee 17:14:46 CDT CPT-G0438 Initial Annual Wellness Exam 14:13:04 CDT CPT-99275 Breathing Tx 10:06:54 CRANE OILER CPT-79388 Postop F/U Visit 10:02:45 CDT CPT-LR Lesion Removal 09:02:56 CDT CPT-JTINJ Asp/Joint Injection 15:51:27 CRANE OILER CPT-OV Office Visit 15:52:02 CRANE OILER CPT-OV Office Visit 15:45:11 CDT CPT-000 Give Zostavax 14:09:06 CDT CPT-55038 Administration single or combination vaccine inc oral 15 :19:04 CDT CPT-44505 Zoster Vaccine (Zostavax) 15:19:04 CDT CPT-77098 Administration single or combination vaccine inc oral 20 :51:03 CDT CPT-16685 Influenza split virus > age 3 20:51:03 CDT CPT-72822 No Charge Offi Visit 14:52:03 CDT CPT-OV Office Visit 14:57:43 CDT CPT-OV Office Visit 15:22:32 CDT CPT-42876 Administration single or combination vaccine inc oral 11 :33:15 CDT CPT-74464 Influenza split virus > age 3 11:33:15 CDT
--- OUTSIDE RECORDS SUMMARY | 2018-04-25 14:51 | XMS REPORT | Clinical Summary ---
Author Author Admin, SACHI Clemons [facility] Address Unknown Phone Unavailable Allergies, Adverse Reactions, [...] twice daily until bottle empty FLUTICASONE PROPIONATE 52661087439 No Longer Active Tu Landeros MD Active COLACE 100 MG CAP 1 po BID PRN Constipation DOCUSATE SODIUM 27116029916 Active Tu Landeros MD Active SIMVASTATIN 40 MG TABS 0.5 tab daily at bedtime SIMVASTATIN 62217323425 Active Tu Landeros MD Active TRUERESULT BLOOD GLUCOSE W/DEVICE KIT test blood sugar twice daily dx 250.00 BLOOD GLUCOSE MONITORING SUPPL 27156074878 No Longer Active Tu Landeros MD Active TRUEDRAW LANCING DEVICE MISC Test twice a day dx 250.0 LANCET DEVICES 86527723322 No Longer Active Tu Landeros MD Active PREDNISONE 20 MG TAB 2 tablets once daily for 2 days, then 1 tablet once daily for 2 days PREDNISONE 03059489956 No Longer Active Tu Landeros MD Active DICLOFENAC SODIUM 50 MG TBEC 1 tablet by mouth three times a day as needed DICLOFENAC SODIUM 03028233910 No Longer Active Fab Morales DO Active METFORMIN HCL 850 MG TABS 1 tablet by mouth twice daily METFORMIN HCL 14414374045 Active Tu Landeros MD Active TRUEDRAW LANCING DEVICE MISC test blood sugar twice daily dx: 250.00 LANCET DEVICES 57781037688 Active Tu Landeros MD Active TRUETEST TEST INVITR STRP test blood sugar twice daily. DX 250.0 GLUCOSE BLOOD 37565034349 Active Tu Landeros MD Active EMBRACE BLOOD GLUCOSE TEST STRP test blood sugar twice daily DX 250.0 2014 GLUCOSE BLOOD 16244110727 No Longer Active Tu Landeros MD Active TRUETEST TEST STRP test blood sugar three times daily dx: 250.00 GLUCOSE BLOOD 67817120695 No Longer Active Suze VOGEL Active TRUERESULT BLOOD GLUCOSE W/DEVICE KIT use to test blood sugar tid dx: 250.00 BLOOD GLUCOSE MONITORING SUPPL 56447992900 No Longer Active Suze Nicole RMA Active ALIGN 4 MG CAPS 1 tid PROBIOTIC PRODUCT 21514759172 No Longer Active Shaun Sy MD Active CIPRO 500 MG TABS 1 bid x 14 days start 09-28-13 CIPROFLOXACIN HCL 54020894871 No Longer Active Shaun Sy MD Active TRAMADOL HCL 50 MG TABS 1-2 tablets every 6 hours as needed for pain TRAMADOL HCL 43973918374 Active Tu Landeros MD Active HYDROCODONE-ACETAMINOPHEN 5-325 MG TABS 1 tab by mouth every 6 hours as needed for pain HYDROCODONE-ACETAMINOPHEN 94573276390 No Longer Active Tu Landeros MD Active OMEPRAZOLE 20 MG CPDR 1 po q a.m. OMEPRAZOLE 94731646408 Active Tu Landeros MD Active GABAPENTIN 100 MG CAPS 1 po bid GABAPENTIN 41001849492 No Longer Active Tu Landeros MD Active B-12 100 MCG TABS Take one by mouth daily CYANOCOBALAMIN 11978077226 No Longer Active Tu Landeros MD Active GABAPENTIN 100 MG CAPS by mouth twice a day GABAPENTIN 05231314960 Active Tu Landeros MD Active BACTRIM DS 800-160 MG TABS 1 bid x 14 day start 09-28-13 SULFAMETHOXAZOLE-TRIMETHOPRIM 85376130856 No Longer Active Tu Landeros MD Active CARVEDILOL 12.5 MG TABS 1 po BID CARVEDILOL 68737482678 Active Tu Landeros MD Active SUPER B COMPLEX/VITAMIN C TABS 1 qd B COMPLEX-C 84644572603 Active JASPREET Perez Active TRILIPIX 135 MG CPDR 1 q hs CHOLINE FENOFIBRATE 86031776810 Active Tu Landeros MD Active FENOFIBRATE 145 MG TABS 1 po qd FENOFIBRATE 11990112390 No Longer Active JASPREET Perez Active OMEPRAZOLE 20 MG TBEC 1 PO 30 MIN BEFORE 1ST MEAL OMEPRAZOLE 23461985782 No Longer Active JASPREET Perez Active SIMVASTATIN 40 MG TABS Take one by mouth daily SIMVASTATIN 35131219125 No Longer Active [place] JASPREET Green Active VENLAFAXINE HCL 37.5 MG TABS 1 bid VENLAFAXINE HCL 47373389820 Active Tu Landeros MD Active VENLAFAXINE HCL 75 MG TABS 1 po BID VENLAFAXINE HCL 63901374363 No Longer Active JASPREET Perez Active CIPRO 500 MG TAB 1 tablet by mouth twice daily CIPROFLOXACIN HCL 46449142414 No Longer Active Tu Landeros MD Active VENLAFAXINE HCL 37.5 MG TABS 1 po BID VENLAFAXINE HCL 08203149358 No Longer Active Suzebianca Nicole [facility] Active LAMISIL 250 MG TAB 1 po qd TERBINAFINE HCL 77254577136 No Longer Active Tu Landeros MD Active LORTAB 5 5-500 MG TABS 1/2 to 1 tablet by mouth every 4 hours as needed for pain HYDROCODONE-ACETAMINOPHEN 66582253757 No Longer Active Tu Landeros MD Active ENALAPRIL MALEATE 20 MG TABS 1.5 po qd ENALAPRIL MALEATE 27462188840 Active Tu Landeros MD Active HYDROCODONE-ACETAMINOPHEN 5-500 MG TABS take one po Q 4-6 hours prn HYDROCODONE-ACETAMINOPHEN 45460782246 No Longer Active Tu Landeros MD Active BACTRIM DS 800-160 MG TABS 1 po BID x 7 days SULFAMETHOXAZOLE-TRIMETHOPRIM 51857460271 No Longer Active Tu Landeros MD Active VENLAFAXINE HCL 75 MG TABS 1 po BID VENLAFAXINE HCL 51521655183 No Longer Active Elvira Cervantes MD PhD Active TRAMADOL HCL 50 MG TABS 1 tablets every 6 hours as needed for pain TRAMADOL HCL 94947827198 No Longer Active Tu Landeros MD Active ACCU-CHEK FASTCLIX LANCETS MISC Use to check bloodsugar three times daily as needed LANCETS 60969725292 No Longer Active Tu Landeros MD Active ACCU-CHEK KEYONA PLUS STRP Use for testing bloodsugars three times daily as needed GLUCOSE BLOOD 79341590353 No Longer Active Tu Landeros MD Active ACCU-CHEK KEYONA PLUS W/DEVICE KIT Use for testing bloodsugars three times daily as needed BLOOD GLUCOSE MONITORING SUPPL 11878118961 No Longer Active Tu Landeros MD Active SPIRONOLACTONE 25 MG TAB 0.5 tablet by mouth daily SPIRONOLACTONE 95313535207 No Longer Active Tu Landeros MD Active ALPRAZOLAM 0.5 MG TABS 1 tab every 6hrs as needed ALPRAZOLAM 37341986532 No Longer Active Tu Landeros MD Active AUGMENTIN 875-125 MG TAB 1 tab by mouth twice daily with food AMOXICILLIN-POT CLAVULANATE 43128326678 No Longer Active Tu Landeros MD Active PREDNISONE 20 MG TAB 2 tabs daily for 3 days, 1 tab daily for 3 days, 1/2 tab daily for 2 days PREDNISONE 07980536541 No Longer Active Tu Landeros MD Active XANAX 0.5 MG TABS 1 tablet every 6 hrs prn ALPRAZOLAM 51648547003 No Longer Active Tu Landeros MD Active PREDNISONE 20 MG TAB 2 tabs daily for 3 days, 1 tab daily for 3 days, 1/2 tab daily for 2 days PREDNISONE 62623540908 No Longer Active Tu Landeros MD Active TRIAMCINOLONE ACETONIDE 0.1 % OINT Apply to affected areas TID for up to 2 weeks TRIAMCINOLONE ACETONIDE 05843669175 No Longer Active Tu Landeros MD Active LORTAB 5 5-500 MG TABS 1/2 to 1 tablet by mouth every 4 hours as needed for pain HYDROCODONE-ACETAMINOPHEN 22562461420 No Longer Active Tu Landeros MD Active MULTIVITAMINS TABS Take one by mouth daily MULTIPLE VITAMIN 50288412602 No Longer Active Tu Landeros MD Active MELATONIN 5 MG TABS Take one by mouth daily MELATONIN 48338598068 No Longer Active uT Landeros MD Active SOMA 350 MG TAB 1 po q 6 hours prn spasm CARISOPRODOL 60245819637 No Longer Active Tu Landeros MD Active MECLIZINE HCL 25 MG CHEW TAB 1 four times a day as needed for dizziness 08/05 MECLIZINE HCL 51156647317 No Longer Active Fab Morales DO Active ANGEL BREEZE 2 TEST DISK test tid prn GLUCOSE BLOOD 25638447345 No Longer Active Negra Scott RN Active REGLAN 10 MG TAB 1 po TID PRN [place] METOCLOPRAMIDE HCL 89832035208 No Longer Active Tu Landeros MD Active METFORMIN HCL 500 MG TABS 1 PO BID METFORMIN HCL 66723216202 No Longer Active Tu Landeros MD Active AMBIEN 10 MG TAB 1 tab by mouth at bedtime as needed for sleep ZOLPIDEM TARTRATE 10429876889 No Longer Active Tu Landeros MD Active FLUOXETINE HCL 40 MG CAPS 1 po q day FLUOXETINE HCL 99806455858 No Longer Active Mayra Nahma Active FISH OIL 1000 MG CAPS Take one by mouth daily OMEGA-3 FATTY ACIDS 01516095487 Active Tu Landeros MD Active GLUCOSAMINE 500 MG TABS Take 2 tab po qd GLUCOSAMINE 24534194932 Active Tu Landeros MD Active TRILIPIX 135 MG CPDR 1 po qd CHOLINE FENOFIBRATE 34695498594 No Longer Active Tu Landeros MD Active ASPIRIN 81 MG CHEW TAB 1 tablet by mouth daily ASPIRIN 99366177552 Active Tu Landeros MD Active FUROSEMIDE 40 MG TAB 1 tablet by mouth daily FUROSEMIDE 69232913830 Active Tu Landeros MD Active REQUIP 2 MG TABS Take one tablet at bedtime prn ROPINIROLE HCL 69371003588 Active Tu Landeros MD Active KLOR-CON 10 10 MEQ CR-TABS TAKE 2 TABS DAILY POTASSIUM CHLORIDE 98922889141 Active Tu Landeros MD Active AMBIEN 10 MG TAB 1 tab by mouth at bedtime as needed for sleep AMBIEN 10 MG TAB 069596 ZOLPIDEM TARTRATE Inactive METFORMIN HCL 500 MG TABS 1 PO BID METFORMIN HCL 500 MG TABS 046521 METFORMIN HCL Inactive REGLAN 10 MG TAB 1 po TID PRN [place] REGLAN 10 MG TAB 895779 METOCLOPRAMIDE HCL Inactive MECLIZINE HCL 25 MG CHEW TAB 1 four times a day as needed for dizziness 08/05 MECLIZINE HCL 25 MG CHEW TAB 793418 MECLIZINE HCL Inactive SOMA 350 MG TAB 1 po q 6 hours prn spasm SOMA 350 MG TAB 698139 CARISOPRODOL Inactive MELATONIN 5 MG TABS Take one by mouth daily MELATONIN 5 MG TABS 761915 MELATONIN Inactive MULTIVITAMINS TABS Take one by mouth daily MULTIVITAMINS TABS MULTIPLE VITAMIN Inactive LORTAB 5 5-500 MG TABS 1/2 to 1 tablet by mouth every 4 hours as needed for pain LORTAB 5 5-500 MG TABS HYDROCODONE- ACETAMINOPHEN Inactive XANAX 0.5 MG TABS 1 tablet every 6 hrs prn XANAX 0.5 MG TABS 949064 ALPRAZOLAM Inactive AUGMENTIN 875-125 MG TAB 1 tab by mouth twice daily with food AUGMENTIN 875-125 MG TAB 103430 AMOXICILLIN-POT CLAVULANATE Inactive ALPRAZOLAM 0.5 MG TABS 1 tab every 6hrs as needed ALPRAZOLAM 0.5 MG TABS 974058 ALPRAZOLAM Inactive SPIRONOLACTONE 25 MG TAB 0.5 tablet by mouth daily SPIRONOLACTONE 25 MG TAB 995051 SPIRONOLACTONE Inactive ACCU-CHEK KEYONA PLUS W/DEVICE KIT Use for testing bloodsugars three times daily as needed ACCU-CHEK KEYONA PLUS W/DEVICE KIT BLOOD GLUCOSE MONITORING SUPPL Inactive ACCU-CHEK KEYONA PLUS STRP Use for testing bloodsugars three times daily as needed ACCU-CHEK KEYONA PLUS STRP GLUCOSE BLOOD Inactive ACCU-CHEK FASTCLIX LANCETS MISC Use to check bloodsugar three times daily as needed ACCU-CHEK FASTCLIX LANCETS MISC 54932283532 LANCETS Inactive TRAMADOL HCL 50 MG TABS 1 tablets every 6 hours as needed for pain TRAMADOL HCL 50 MG TABS 440176 TRAMADOL HCL Inactive VENLAFAXINE HCL 75 MG TABS 1 po BID VENLAFAXINE HCL 75 MG TABS 219963 VENLAFAXINE HCL Inactive HYDROCODONE-ACETAMINOPHEN 5-500 MG TABS take one po Q 4-6 hours prn HYDROCODONE-ACETAMINOPHEN 5-500 MG TABS HYDROCODONE- ACETAMINOPHEN Inactive LORTAB 5 5-500 MG TABS 1/2 to 1 tablet by mouth every 4 hours as needed for pain LORTAB 5 5-500 MG TABS HYDROCODONE- ACETAMINOPHEN Inactive LAMISIL 250 MG TAB 1 po qd LAMISIL 250 MG TAB 738125 TERBINAFINE HCL Inactive VENLAFAXINE HCL 37.5 MG TABS 1 po BID VENLAFAXINE HCL 37.5 MG TABS 670622 VENLAFAXINE HCL Inactive CIPRO 500 MG TAB 1 tablet by mouth twice daily CIPRO 500 MG TAB 040822 CIPROFLOXACIN HCL Inactive VENLAFAXINE HCL 75 MG TABS 1 po BID VENLAFAXINE HCL 75 MG TABS 147360 VENLAFAXINE HCL Inactive SIMVASTATIN 40 MG TABS Take one by mouth daily SIMVASTATIN 40 MG TABS 665716 SIMVASTATIN Inactive OMEPRAZOLE 20 MG TBEC 1 PO 30 MIN BEFORE 1ST MEAL OMEPRAZOLE 20 MG TBEC 267781 OMEPRAZOLE Inactive FENOFIBRATE 145 MG TABS 1 po qd FENOFIBRATE 145 MG TABS 038759 FENOFIBRATE Inactive BACTRIM DS 800-160 MG TABS 1 bid x 14 day start 09-28-13 BACTRIM DS 800-160 MG TABS 280121 SULFAMETHOXAZOLE-TRIMETHOPRIM Inactive B-12 100 MCG TABS Take one by mouth daily B-12 100 MCG TABS CYANOCOBALAMIN Inactive GABAPENTIN 100 MG CAPS 1 po bid GABAPENTIN 100 MG CAPS 423723 GABAPENTIN Inactive HYDROCODONE-ACETAMINOPHEN 5-325 MG TABS 1 tab by mouth every 6 hours as needed for pain HYDROCODONE-ACETAMINOPHEN 5-325 MG TABS 845143 HYDROCODONE-ACETAMINOPHEN Inactive CIPRO 500 MG TABS 1 bid x 14 days start 09-28-13 CIPRO 500 MG TABS 519302 CIPROFLOXACIN HCL Inactive ALIGN 4 MG CAPS [...] as needed DICLOFENAC SODIUM 50 MG TBEC 077773 DICLOFENAC SODIUM Inactive PREDNISONE 20 MG TAB 2 tablets once daily for 2 days, then 1 tablet once daily for 2 days PREDNISONE 20 MG TAB 499614 PREDNISONE Inactive TRUEDRAW LANCING DEVICE MISC Test [...] 2 weeks TRIAMCINOLONE ACETONIDE 0.1 % OINT 6375307 TRIAMCINOLONE ACETONIDE Inactive PREDNISONE 20 MG TAB 2 tabs daily for 3 days, 1 tab daily for 3 days, 1/2 tab daily for 2 days PREDNISONE 20 MG TAB 774153 PREDNISONE Inactive PREDNISONE 20 MG TAB 2 tabs daily for 3 days, 1 tab daily for 3 days, 1/2 tab daily for 2 days PREDNISONE 20 MG TAB 011847 PREDNISONE Inactive BACTRIM DS 800-160 MG TABS 1 po BID x 7 days BACTRIM DS 800-160 MG TABS 266356 SULFAMETHOXAZOLE-TRIMETHOPRIM Inactive Immunizations Vaccine Administration Date Value Standard Description Seasonal influenza vaccine, injectable, containing preservative, for > 3 years old (Afluria, FluLaval, Fluzone, Fluvirin, Fluarix, Agriflu(>=18 yo)) Fluzone (>3 yrs.) [[id number]] Influenza, seasonal, injectable influenza immunization (Flu Vax) has been administered 02/22/2012 influenza virus vaccine, unspecified formulation Seasonal influenza vaccine, injectable, containing preservative, for > 3 years old (Afluria, FluLaval, Fluzone, Fluvirin, Fluarix, Agriflu(>=18 yo)) Fluzone (>3 yrs.) [[id number]] Influenza, seasonal, injectable Vital Signs Date Name [...] CBC - Chemistry sodium, serum 143 mmol/L 992-334 9062/03/10 potassium, serum 4.9 mmol/L 3.5-5.2 chloride, serum [...] MICROALBUMIN - Chemistry sodium, serum 142 mmol/L 336-486 5638/10/08 potassium, serum 4.5 mmol/L 3.5-5.2 chloride, serum [...] 0.30 mg/dL 0.00-1.00 cholesterol, serum 111 mg/dL 298-000 1960/07/28 triglyceride, serum, fasting 177 mg/dL 30-200 HDL [...] m[iU]/mL Encounters Code Encounter Date Provider Facility CPT-28481 Level 4 Est. Patient 13:50:18 OBSTETRICS TECH Tu Landeros MD [facility] CPT-80569 Level 3 Est. Patient 10:30:04 CDT Tu Landeros MD [facility] CPT-71938 Level 4 Est. Patient 11:03:38 CDT Tu Landeros MD [facility] CPT-20542 Level 3 Est. Patient 10:20:44 CDT Fab Morales DO [facility] CPT-74690 Level 4 Est. Patient 14:38:57 CDT Tu Landeros MD [facility] CPT-98274 Level 4 Est. Patient 14:27:39 OBSTETRICS TECH Tu Landeros MD [facility] CPT-77791 Level 4 Est. Patient 09:45:25 CDT Tu Landeros MD [facility] CPT-07845 Level 4 Est. Patient 09:05:20 OBSTETRICS TECH Tu Landeros MD [facility] CPT-10728 Level 4 Est. Patient 14:09:06 CDT Tu Landeros MD [facility] CPT-43691 Level 3 Est. Patient 13:36:54 CDT Tu Landeros MD [facility] CPT-40053 Level 3 Est. Patient 08:59:14 CDT Tu Landeros MD [facility] CPT-55874 Level 3 Est. Patient 13:48:35 CDT Fab Morales DO [facility] CPT-79347 Level 4 Est. Patient 10:05:48 CDT Tu Landeros MD [facility] CPT-68705 Level 3 Est. Patient 13:38:42 CDT Marek BANKS [facility] CPT-29872 Level 5 Est. Patient 08:08:39 CDT Jerrica FRANCIS [facility] CPT-99482 Level 4 Est. Patient 14:23:38 CDT Tu Landeros MD [facility] CPT-95207 Level 3 Est. Patient 11:44:04 CDT Tu Landeros MD [facility] CPT-99966 Level 3 Est. Patient 11:03:20 OBSTETRICS TECH Tu Landeros MD [facility] CPT-48441 Level 3 Est. Patient 11:03:14 OBSTETRICS TECH Tu Landeros MD [facility] CPT-27444 Level 3 Est. Patient 12:42:49 CDT Tu Landeros MD [facility] CPT-40792 Level 3 Est. Patient 11:52:06 CDT Tu Landeros MD [facility] CPT-46970 Level 3 Est. Patient 13:58:11 CDT Tu Landeros MD [facility] CPT-34356 Level 3 Est. Patient 17:50:07 CDT Fab Morales DO [facility] CPT-91345 Level 3 Est. Patient 12:06:29 CDT Elvira Cervantes MD PhD [facility] CPT-81989 Level 3 Est. Patient 15:50:32 CDT Tu Landeros MD [facility] CPT-14699 Level 4 Est. Patient 16:08:29 CDT Tu Landeros MD [facility] CPT-97888 Level 3 Est. Patient 16:04:19 CDT Tu Landeros MD [facility] CPT-58823 Level 3 Est. Patient 11:22:30 OBSTETRICS TECH Tu Landeros MD [facility] CPT-23130 Level 4 Est. Patient 16:24:02 OBSTETRICS TECH Tu Landeros MD [facility] CPT-75360 Level 3 Est. Patient 17:21:23 OBSTETRICS TECH Tu Landeros MD [facility] Procedures Code Procedure Name Date Entry Date Standard Description CPT-63009 Postop F/U Visit 10:02:45 CDT CPT-LR Lesion Removal 09:02:56 CDT CPT-JTINJ Asp/Joint Injection 15:51:27 OBSTETRICS TECH CPT-OV Office Visit 15:52:02 OBSTETRICS TECH CPT-OV Office Visit 15:45:11 CDT CPT-000 Give Zostavax 14:09:06 CDT CPT-65368 Administration single or combination vaccine inc oral 15 :19:04 CDT CPT-39365 Zoster Vaccine (Zostavax) 15:19:04 CDT CPT-52185 Administration single or combination vaccine inc oral 20 :51:03 CDT CPT-76043 Influenza split virus > age 3 20:51:03 CDT CPT-47226 No Charge Offi Visit 14:52:03 CDT CPT-OV Office Visit 14:57:43 CDT CPT-OV Office Visit 15:22:32 CDT CPT-98043 Administration single or combination vaccine inc oral 11 :33:15 CDT CPT-56274 Influenza split virus > age 3 11:33:15 CDT
--- OUTSIDE RECORDS SUMMARY | 2018-04-25 14:53 | XMS REPORT | Clinical Summary ---
Author Author Admin, SACHI Organization [email or web address] Address Unknown Phone Unavailable Allergies, Adverse Reactions, [...] specified ICD- 369.20 Inactive Tu Landeros MD PRESSURE ULCER UNSPECIFIED SITE ICD-707.00 Inactive Tu Landeros MD Medication List Medication Instructions Start Date Stop Date Generic Name NDC Status Provider Patient Instruction INVOKANA 100 MG ORAL TABS 1 po qd CANAGLIFLOZIN 86754273255 Active Tu Landeros MD Active GLIPIZIDE 5 MG ORAL TABS 1 po qd GLIPIZIDE 55245288002 No Longer Active Tu Landeros MD Active VENLAFAXINE HCL 75 MG ORAL TABS 1 po BID VENLAFAXINE HCL 42925334944 Active Tu Landeros MD Active GLIMEPIRIDE 1 MG ORAL TABS 1 po qd GLIMEPIRIDE 77690283447 No Longer Active Tu Landeros MD Active TRUE METRIX BLOOD GLUCOSE TEST INVITR STRP Test blood sugar BID Dx: E11.9 GLUCOSE BLOOD 43562371382 Active Tu Landeros MD Active TRUE METRIX AIR GLUCOSE METER W/DEVICE KIT Test blood glucose BID Dx: E11.9 BLOOD GLUCOSE MONITORING SUPPL 92304745921 Active Tu Landeros MD Active TRUETEST TEST INVITR STRP test blood sugar twice daily. DX 250.0 GLUCOSE BLOOD 55890874469 No Longer Active Mirna Stanley LPN Active TRUEDRAW LANCING DEVICE MISC test blood sugar twice daily dx: 250.00 LANCET DEVICES 10404905434 No Longer Active Mirna Stanley LPN Active ENALAPRIL MALEATE 20 MG TABS 2 po qd ENALAPRIL MALEATE 10952700775 Active Tu Landeros MD Active SUPER B COMPLEX/VITAMIN C TABS 1 qd B COMPLEX-C 74545818970 No Longer Active Tu Landeros MD Active ASPIRIN EC 81 MG ORAL TBEC 1 po qd ASPIRIN 95230497072 Active Tu Landeros MD Active GLUCOSAMINE 500 MG TABS 2 po qd GLUCOSAMINE Active Tu Landeros MD Active SIMVASTATIN 40 MG TABS 0.5 po qHS SIMVASTATIN 02236134978 Active Tu Landeros MD Active FISH OIL 1000 MG CAPS 1 po qd OMEGA-3 FATTY ACIDS 71907846998 Active Tu Landeros MD Active METFORMIN HCL 1000 MG TABS 1 po BID METFORMIN HCL 60493252537 Active Tu Landeros MD Active KLOR-CON 10 10 MEQ CR-TABS 2 po qd POTASSIUM CHLORIDE 28109992169 Active Tu Landeros MD Active FUROSEMIDE 40 MG TAB 1 po qd FUROSEMIDE 73941950795 Active Tu Landeros MD Active REQUIP 2 MG ORAL TABS 1 po qHS PRN Restless legs ROPINIROLE HCL 33681689444 Active Tu Landeros MD Active GABAPENTIN 100 MG CAPS 1 po BID GABAPENTIN 99784529746 Active Tu Landeros MD Active REQUIP 2 MG TABS Take one tablet at bedtime prn ROPINIROLE HCL 08163658366 No Longer Active Tu Landeros MD Active VENTOLIN HFA 108 (90 BASE) MCG/ACT AERS 1-2 puffs every 4 hours if needed for cough/congestion ALBUTEROL SULFATE 20600916111 No Longer Active Ambika Aden APRN Active ZITHROMAX 250 MG TAB 2 po today, then 1 po q days 2-5 AZITHROMYCIN 43423727269 No Longer Active Miranda Suresh APRN Active FLONASE 50 MCG/ACT SUSP 1 spray each nostril twice daily until bottle empty FLUTICASONE PROPIONATE 59553727390 No Longer Active Tu Landeros MD Active COLACE 100 MG CAP 1 po BID PRN Constipation DOCUSATE SODIUM 15227747302 Active Tu Landeros MD Active TRUERESULT BLOOD GLUCOSE W/DEVICE KIT test blood sugar twice daily dx 250.00 BLOOD GLUCOSE MONITORING SUPPL 96652510388 No Longer Active Tu Landeros MD Active TRUEDRAW LANCING DEVICE MISC Test twice a day dx 250.0 LANCET DEVICES 81873433799 No Longer Active Tu Landeros MD Active PREDNISONE 20 MG TAB 2 tablets once daily for 2 days, then 1 tablet once daily for 2 days PREDNISONE 82392811611 No Longer Active Tu Landeros MD Active DICLOFENAC SODIUM 50 MG TBEC 1 tablet by mouth three times a day as needed DICLOFENAC SODIUM 25502542843 No Longer Active Fab Morales DO Active EMBRACE BLOOD GLUCOSE TEST STRP test blood sugar twice daily DX 250.0 2014 GLUCOSE BLOOD 07505192569 No Longer Active Tu Landeros MD Active TRUETEST TEST STRP test blood sugar three times daily dx: 250.00 GLUCOSE BLOOD 51617890384 No Longer Active Suze VOGEL Active TRUERESULT BLOOD GLUCOSE W/DEVICE KIT use to test blood sugar tid dx: 250.00 BLOOD GLUCOSE MONITORING SUPPL 57650884914 No Longer Active Suze Nicole RMA Active ALIGN 4 MG CAPS 1 tid PROBIOTIC PRODUCT 67204535480 No Longer Active Shaun Sy MD Active CIPRO 500 MG TABS 1 bid x 14 days start 09-28-13 CIPROFLOXACIN HCL 84558868589 No Longer Active Shaun Sy MD Active TRAMADOL HCL 50 MG TABS 1-2 tablets every 6 hours as needed for pain TRAMADOL HCL 90319498117 Active Tu Landeros MD Active HYDROCODONE-ACETAMINOPHEN 5-325 MG TABS 1 tab by mouth every 6 hours as needed for pain HYDROCODONE-ACETAMINOPHEN 86344213626 No Longer Active Tu Landeros MD Active OMEPRAZOLE 20 MG CPDR 1 po q a.m. OMEPRAZOLE 52728111007 Active Lesli Kellogg APRN Active GABAPENTIN 100 MG CAPS 1 po bid GABAPENTIN 33686272250 No Longer Active Tu Landeros MD Active B-12 100 MCG TABS Take one by mouth daily CYANOCOBALAMIN 99598296539 No Longer Active Tu Landeros MD Active BACTRIM DS 800-160 MG TABS 1 bid x 14 day start 09-28-13 SULFAMETHOXAZOLE-TRIMETHOPRIM 43657231225 No Longer Active Tu Landeros MD Active CARVEDILOL 12.5 MG TABS 1 po BID CARVEDILOL 78723574126 Active Tu Landeros MD Active TRILIPIX 135 MG CPDR 1 q hs CHOLINE FENOFIBRATE 27317767601 Active Tu Landeros MD Active FENOFIBRATE 145 MG TABS 1 po qd FENOFIBRATE 11515141632 No Longer Active JASPREET Perez Active OMEPRAZOLE 20 MG TBEC 1 PO 30 MIN BEFORE 1ST MEAL OMEPRAZOLE 21779682655 No Longer Active JASPREET Perez Active SIMVASTATIN 40 MG TABS Take one by mouth daily SIMVASTATIN 17932580638 No Longer Active Gustavo NormaNURYSCandido Active VENLAFAXINE HCL 75 MG TABS 1 po BID VENLAFAXINE HCL 71590233437 No Longer Active Gustavo Meddybemps RMA Active CIPRO 500 MG TAB 1 tablet by mouth twice daily CIPROFLOXACIN HCL 43362536888 No Longer Active Tu Landeros MD Active VENLAFAXINE HCL 37.5 MG TABS 1 po BID VENLAFAXINE HCL 31484544164 No Longer Active Suze Corey RMA Active LAMISIL 250 MG TAB 1 po qd TERBINAFINE HCL 52894791825 No Longer Active Tu Landeros MD Active LORTAB 5 5-500 MG TABS 1/2 to 1 tablet by mouth every 4 hours as needed for pain HYDROCODONE-ACETAMINOPHEN 29107967251 No Longer Active Tu Landeros MD Active HYDROCODONE-ACETAMINOPHEN 5-500 MG TABS take one po Q 4-6 hours prn HYDROCODONE-ACETAMINOPHEN 67742553126 No Longer Active Tu Landeros MD Active BACTRIM DS 800-160 MG TABS 1 po BID x 7 days SULFAMETHOXAZOLE-TRIMETHOPRIM 91321453810 No Longer Active Tu Landeros MD Active VENLAFAXINE HCL 75 MG TABS 1 po BID VENLAFAXINE HCL 26443071622 No Longer Active Elvira Cervantes MD PhD Active TRAMADOL HCL 50 MG TABS 1 tablets every 6 hours as needed for pain TRAMADOL HCL 74043444132 No Longer Active Tu Landeros MD Active ACCU-CHEK FASTCLIX LANCETS MISC Use to check bloodsugar three times daily as needed LANCETS 80020205022 No Longer Active Tu Landeros MD Active ACCU-CHEK KEYONA PLUS STRP Use for testing bloodsugars three times daily as needed GLUCOSE BLOOD 77258565187 No Longer Active Tu Landeros MD Active ACCU-CHEK KEYONA PLUS W/DEVICE KIT Use for testing bloodsugars three times daily as needed BLOOD GLUCOSE MONITORING SUPPL 22996626556 No Longer Active Tu Landeros MD Active SPIRONOLACTONE 25 MG TAB 0.5 tablet by mouth daily SPIRONOLACTONE 09952746141 No Longer Active Tu Landeros MD Active ALPRAZOLAM 0.5 MG TABS 1 tab every 6hrs as needed ALPRAZOLAM 98446505202 No Longer Active Tu Landeros MD Active AUGMENTIN 875-125 MG TAB 1 tab by mouth twice daily with food AMOXICILLIN-POT CLAVULANATE 92312256517 No Longer Active Tu Landeros MD Active PREDNISONE 20 MG TAB 2 tabs daily for 3 days, 1 tab daily for 3 days, 1/2 tab daily for 2 days PREDNISONE 78147677713 No Longer Active Tu Landeros MD Active XANAX 0.5 MG TABS 1 tablet every 6 hrs prn ALPRAZOLAM 20458566904 No Longer Active Tu Landeros MD Active PREDNISONE 20 MG TAB 2 tabs daily for 3 days, 1 tab daily for 3 days, 1/2 tab daily for 2 days PREDNISONE 65036729759 No Longer Active Tu Landeros MD Active TRIAMCINOLONE ACETONIDE 0.1 % OINT Apply to affected areas TID for up to 2 weeks TRIAMCINOLONE ACETONIDE 39622989408 No Longer Active Tu Landeros MD Active LORTAB 5 5-500 MG TABS 1/2 to 1 tablet by mouth every 4 hours as needed for pain HYDROCODONE-ACETAMINOPHEN 47871136676 No Longer Active Tu Landeros MD Active MULTIVITAMINS TABS Take one by mouth daily MULTIPLE VITAMIN 77713225750 No Longer Active Tu Landeros MD Active MELATONIN 5 MG TABS Take one by mouth daily MELATONIN 75772789889 No Longer Active Tu Landeros MD Active SOMA 350 MG TAB 1 po q 6 hours prn spasm CARISOPRODOL 25159369756 No Longer Active Tu Landeros MD Active MECLIZINE HCL 25 MG CHEW TAB 1 four times a day as needed for dizziness 08/05 MECLIZINE HCL 23333075450 No Longer Active Fab Morales DO Active ANGEL BREEZE 2 TEST DISK test tid prn GLUCOSE BLOOD 54280529490 No Longer Active Negra Scott RN Active REGLAN 10 MG TAB 1 po TID PRN Nausea METOCLOPRAMIDE HCL 07720057591 No Longer Active Tu Landeros MD Active METFORMIN HCL 500 MG TABS 1 PO BID METFORMIN HCL 33932141108 No Longer Active Tu Landeros MD Active AMBIEN 10 MG TAB 1 tab by mouth at bedtime as needed for sleep ZOLPIDEM TARTRATE 10793058502 No Longer Active Tu Landeros MD Active FLUOXETINE HCL 40 MG CAPS 1 po q day FLUOXETINE HCL 06932152181 No Longer Active Mayra Luray Active TRILIPIX 135 MG CPDR 1 po qd CHOLINE FENOFIBRATE 45960579728 No Longer Active Tu Landeros MD Active AMBIEN 10 MG TAB 1 tab by mouth at bedtime as needed for sleep AMBIEN 10 MG TAB 803702 ZOLPIDEM TARTRATE Inactive METFORMIN HCL 500 MG TABS 1 PO BID METFORMIN HCL 500 MG TABS 816838 METFORMIN HCL Inactive REGLAN 10 MG TAB 1 po TID PRN Nausea REGLAN 10 MG TAB 274181 METOCLOPRAMIDE HCL Inactive MECLIZINE HCL 25 MG CHEW TAB 1 four times a day as needed for dizziness 08/05 MECLIZINE HCL 25 MG CHEW TAB 821947 MECLIZINE HCL Inactive SOMA 350 MG TAB 1 po q 6 hours prn spasm SOMA 350 MG TAB 569479 CARISOPRODOL Inactive MELATONIN 5 MG TABS Take one by mouth daily MELATONIN 5 MG TABS 761263 MELATONIN Inactive MULTIVITAMINS TABS Take one by mouth daily MULTIVITAMINS TABS MULTIPLE VITAMIN Inactive LORTAB 5 5-500 MG TABS 1/2 to 1 tablet by mouth every 4 hours as needed for pain LORTAB 5 5-500 MG TABS HYDROCODONE- ACETAMINOPHEN Inactive XANAX 0.5 MG TABS 1 tablet every 6 hrs prn XANAX 0.5 MG TABS 424374 ALPRAZOLAM Inactive AUGMENTIN 875-125 MG TAB 1 tab by mouth twice daily with food AUGMENTIN 875-125 MG TAB 623141 AMOXICILLIN-POT CLAVULANATE Inactive ALPRAZOLAM 0.5 MG TABS 1 tab every 6hrs as needed ALPRAZOLAM 0.5 MG TABS 794566 ALPRAZOLAM Inactive SPIRONOLACTONE 25 MG TAB 0.5 tablet by mouth daily SPIRONOLACTONE 25 MG TAB 307382 SPIRONOLACTONE Inactive ACCU-CHEK KEYONA PLUS W/DEVICE KIT Use for testing bloodsugars three times daily as needed ACCU-CHEK KEYONA PLUS W/DEVICE KIT BLOOD GLUCOSE MONITORING SUPPL Inactive ACCU-CHEK KEYONA PLUS STRP Use for testing bloodsugars three times daily as needed ACCU-CHEK KEYONA PLUS STRP GLUCOSE BLOOD Inactive ACCU-CHEK FASTCLIX LANCETS MISC Use to check bloodsugar three times daily as needed ACCU-CHEK FASTCLIX LANCETS MISC 83886997448 LANCETS Inactive TRAMADOL HCL 50 MG TABS 1 tablets every 6 hours as needed for pain TRAMADOL HCL 50 MG TABS 192844 TRAMADOL HCL Inactive VENLAFAXINE HCL 75 MG TABS 1 po BID VENLAFAXINE HCL 75 MG TABS 323452 VENLAFAXINE HCL Inactive HYDROCODONE-ACETAMINOPHEN 5-500 MG TABS take one po Q 4-6 hours prn HYDROCODONE-ACETAMINOPHEN 5-500 MG TABS HYDROCODONE- ACETAMINOPHEN Inactive LORTAB 5 5-500 MG TABS 1/2 to 1 tablet by mouth every 4 hours as needed for pain LORTAB 5 5-500 MG TABS HYDROCODONE- ACETAMINOPHEN Inactive LAMISIL 250 MG TAB 1 po qd LAMISIL 250 MG TAB 635783 TERBINAFINE HCL Inactive VENLAFAXINE HCL 37.5 MG TABS 1 po BID VENLAFAXINE HCL 37.5 MG TABS 131352 VENLAFAXINE HCL Inactive CIPRO 500 MG TAB 1 tablet by mouth twice daily CIPRO 500 MG TAB 761758 CIPROFLOXACIN HCL Inactive VENLAFAXINE HCL 75 MG TABS 1 po BID VENLAFAXINE HCL 75 MG TABS 815584 VENLAFAXINE HCL Inactive SIMVASTATIN 40 MG TABS Take one by mouth daily SIMVASTATIN 40 MG TABS 653937 SIMVASTATIN Inactive OMEPRAZOLE 20 MG TBEC 1 PO 30 MIN BEFORE 1ST MEAL OMEPRAZOLE 20 MG TBEC 382551 OMEPRAZOLE Inactive FENOFIBRATE 145 MG TABS 1 po qd FENOFIBRATE 145 MG TABS 504336 FENOFIBRATE Inactive BACTRIM DS 800-160 MG TABS 1 bid x 14 day start 09-28-13 BACTRIM DS 800-160 MG TABS 521616 SULFAMETHOXAZOLE-TRIMETHOPRIM Inactive B-12 100 MCG TABS Take one by mouth daily B-12 100 MCG TABS CYANOCOBALAMIN Inactive GABAPENTIN 100 MG CAPS 1 po bid GABAPENTIN 100 MG CAPS 390209 GABAPENTIN Inactive HYDROCODONE-ACETAMINOPHEN 5-325 MG TABS 1 tab by mouth every 6 hours as needed for pain HYDROCODONE-ACETAMINOPHEN 5-325 MG TABS 382217 HYDROCODONE-ACETAMINOPHEN Inactive CIPRO 500 MG TABS 1 bid x 14 days start 09-28-13 CIPRO 500 MG TABS 074855 CIPROFLOXACIN HCL Inactive ALIGN 4 MG CAPS [...] as needed DICLOFENAC SODIUM 50 MG TBEC 556364 DICLOFENAC SODIUM Inactive PREDNISONE 20 MG TAB 2 tablets once daily for 2 days, then 1 tablet once daily for 2 days PREDNISONE 20 MG TAB 636717 PREDNISONE Inactive TRUEDRAW LANCING DEVICE MISC Test twice a day dx 250.0 TRUEDRAW LANCING DEVICE MISC LANCET DEVICES Inactive TRUERESULT BLOOD GLUCOSE W/DEVICE KIT test blood sugar twice daily dx 250.00 TRUERESULT BLOOD GLUCOSE W/DEVICE KIT BLOOD GLUCOSE MONITORING SUPPL Inactive FLONASE 50 MCG/ACT SUSP 1 spray each nostril twice daily until bottle empty FLONASE 50 MCG/ACT SUSP 1945386 FLUTICASONE PROPIONATE Inactive VENTOLIN HFA 108 (90 BASE) MCG/ACT AERS 1-2 puffs every 4 hours if needed for cough/congestion VENTOLIN HFA 108 (90 BASE) MCG/ACT AERS ALBUTEROL SULFATE Inactive REQUIP 2 MG TABS Take one tablet at bedtime prn REQUIP 2 MG TABS 245041 ROPINIROLE HCL Inactive SUPER B COMPLEX/VITAMIN C TABS 1 qd SUPER B COMPLEX/ VITAMIN C TABS 81272255190 B COMPLEX-C Inactive TRUEDRAW LANCING DEVICE MISC test blood sugar twice daily dx: 250.00 TRUEDRAW LANCING DEVICE MISC LANCET DEVICES Inactive TRUETEST TEST INVITR STRP test blood sugar twice daily. DX 250.0 TRUETEST TEST INVITR STRP GLUCOSE BLOOD Inactive TRIAMCINOLONE ACETONIDE 0.1 % OINT Apply to affected areas TID for up to 2 weeks TRIAMCINOLONE ACETONIDE 0.1 % OINT 4334000 TRIAMCINOLONE ACETONIDE Inactive PREDNISONE 20 MG TAB 2 tabs daily for 3 days, 1 tab daily for 3 days, 1/2 tab daily for 2 days PREDNISONE 20 MG TAB 566166 PREDNISONE Inactive PREDNISONE 20 MG TAB 2 tabs daily for 3 days, 1 tab daily for 3 days, 1/2 tab daily for 2 days PREDNISONE 20 MG TAB 682143 PREDNISONE Inactive BACTRIM DS 800-160 MG TABS 1 po BID x 7 days BACTRIM DS 800-160 MG TABS 746117 SULFAMETHOXAZOLE-TRIMETHOPRIM Inactive ZITHROMAX 250 MG TAB 2 po today, then 1 po q days 2-5 ZITHROMAX 250 MG TAB 1358268 AZITHROMYCIN Inactive Advance Directives Directive Description Start Date DISCUSSED WITH PATIENT -- NO DECISION MADE Immunizations Vaccine Administration Date Value Standard Description Seasonal influenza vaccine, injectable, containing preservative, for > 3 years old (Afluria, FluLaval, Fluzone, Fluvirin, Fluarix, Agriflu(>=18 yo)) Fluzone (>3 yrs.) [HST323] Influenza, seasonal, injectable influenza immunization (Flu Vax) has been administered 02/22/2012 influenza virus vaccine, unspecified formulation Seasonal influenza vaccine, injectable, containing preservative, for > 3 years old (Afluria, FluLaval, Fluzone, Fluvirin, Fluarix, Agriflu(>=18 yo)) Fluzone (>3 yrs.) [CEC080] Influenza, seasonal, injectable Vital Signs Date Name [...] Magnesium - Chemistry sodium, serum 143 mmol/L 121-102 7680/01/10 carbon dioxide, venous blood 28.0 mmol/L 21.0-32.0 potassium, serum 4.5 mmol/L 3.5-5.2 chloride, serum 104 mmol/L 98-107 blood glucose 158 mg/dL 65-110 urea nitrogen, blood 23 mg/dL 7-18 creatinine, serum 1.06 mg/dL 0.55-1.30 alanine aminotransferase (SGPT), serum 42 U/L 12-78 aspartate aminotransferase (SGOT), serum 32 U/L 15-37 calcium, serum 9.3 mg/dL 8.5-10.1 bilirubin, serum, total 0.20 mg/dL 0.00-1.00 cholesterol, serum 177 mg/dL 275-652 5285/01/10 triglyceride, serum, fasting 320 mg/dL 30-200 HDL cholesterol, serum 46 mg/dL 32-96 LDL cholesterol, serum 67 mg/dL 0-130 Lab Report: COMPREHENSIVE METABOLIC PANEL, LIPID PANEL, HEMOGLOBIN A1c - Chemistry cholesterol, serum 135 mg/dL 689-118 2428/05/17 HDL cholesterol, serum 41 mg/dL > OR=46 triglyceride, serum, fasting 206 mg/dL <150 LDL cholesterol, serum 53 MG/DL (CALC) mg/dL <130 cholesterol/HDL ratio, serum 3.3 (calc) < OR=5.0 Lab Report: HGBA1C - Chemistry hemoglobin A1C, blood, as % of total hemoglobin 7.4 % 4.3-6.0 sodium, serum 140 mmol/L 342-187 6239/09/07 potassium, serum 4.3 mmol/L 3.5-5.2 chloride, serum [...] <30 Encounters Code Encounter Date Provider Facility CPT-04990 Level 4 Est. Patient 14:29:21 CDT Tu Landeros MD [facility] CPT-11221 Level 4 Est. Patient 09:08:17 NUT PICKER Tu Landeros MD [facility] CPT-89107 Level 4 Est. Patient 14:40:19 CDT Tu Landeros MD [facility] CPT-39048 Level 4 Est. Patient 14:06:04 NUT PICKER Tu Landeros MD [facility] CPT-74376 Level 3 Est. Patient 14:05:18 NUT PICKER Tu Landeros MD [facility] CPT-16099 Level 3 Est. Patient 10:06:54 NUT PICKER Miranda Suresh APRN [facility] CPT-61208 Level 4 Est. Patient 13:50:18 NUT PICKER Tu Landeros MD [facility] CPT-97318 Level 3 Est. Patient 10:30:04 CDT Tu Landeros MD [facility] CPT-79065 Level 4 Est. Patient 11:03:38 CDT Tu Landeros MD [facility] CPT-97589 Level 3 Est. Patient 10:20:44 CDT Fab Morales DO [facility] CPT-96116 Level 4 Est. Patient 14:38:57 CDT Tu Landeros MD [facility] CPT-72527 Level 4 Est. Patient 14:27:39 NUT PICKER Tu Landeros MD [facility] CPT-13715 Level 4 Est. Patient 09:45:25 CDT Tu Landeros MD [facility] CPT-54249 Level 4 Est. Patient 09:05:20 NUT PICKER Tu Landeros MD [facility] CPT-48046 Level 4 Est. Patient 14:09:06 CDT Tu Landeros MD [facility] CPT-00287 Level 3 Est. Patient 13:36:54 CDT Tu Landeros MD [facility] CPT-62061 Level 3 Est. Patient 08:59:14 CDT Tu Landeros MD [facility] CPT-03574 Level 3 Est. Patient 13:48:35 CDT Fab Morales DO [facility] CPT-54622 Level 4 Est. Patient 10:05:48 CDT Tu Landeros MD [facility] CPT-15249 Level 3 Est. Patient 13:38:42 CDT Marek BANKS [facility] CPT-12621 Level 5 Est. Patient 08:08:39 CDT Jerrica FRANCIS [facility] CPT-56928 Level 4 Est. Patient 14:23:38 CDT Tu Landeros MD [facility] CPT-06816 Level 3 Est. Patient 11:44:04 CDT Tu Landeros MD [facility] CPT-95173 Level 3 Est. Patient 11:03:20 NUT PICKER Tu Landeros MD [facility] CPT-91331 Level 3 Est. Patient 11:03:14 NUT PICKER Tu Landeros MD [facility] CPT-41581 Level 3 Est. Patient 12:42:49 CDT Tu Landeros MD [facility] CPT-74646 Level 3 Est. Patient 11:52:06 CDT Tu Landeros MD [facility] CPT-02000 Level 3 Est. Patient 13:58:11 CDT Tu Landeros MD [facility] CPT-05962 Level 3 Est. Patient 17:50:07 CDT Fab Morales DO [facility] CPT-89714 Level 3 Est. Patient 12:06:29 CDT Elvira Cervantes MD, PhD [facility] CPT-41501 Level 3 Est. Patient 15:50:32 CDT Tu Landeros MD [facility] CPT-48266 Level 4 Est. Patient 16:08:29 CDT Tu Landeros MD [facility] CPT-88792 Level 3 Est. Patient 16:04:19 CDT Tu Landeros MD [facility] CPT-15047 Level 3 Est. Patient 11:22:30 NUT PICKER Tu Landeros MD [facility] CPT-64664 Level 4 Est. Patient 16:24:02 NUT PICKER Tu Landeros MD [facility] CPT-52585 Level 3 Est. Patient 17:21:23 NUT PICKER Tu Landeros MD [facility] Procedures Code Procedure Name Date Entry Date Standard Description CPT-G0009 Administration of Pneumococcal Vaccine 15:08:26 CDT CPT-40397 Prevnar 13 Intramuscular Suspension 15:08:26 CDT 10/08 CPT-G0439 [facility] Annual Wellness Exam 14:29:22 CDT CPT-80934 Venipuncture Draw Fee 13:15:35 CDT CPT-08305 Magnesium - LAB USE ONLY 11:14:20 NUT PICKER CPT-67964 Lipid - LAB USE ONLY 11:14:20 NUT PICKER CPT-58242 HGBA1C - LAB USE ONLY 11:14:20 NUT PICKER CPT-24912 CMP - LAB USE ONLY 11:14:19 NUT PICKER CPT-07931 CBC - LAB USE ONLY 11:14:19 NUT PICKER CPT-02007 Venipuncture Draw Fee 11:14:18 NUT PICKER CPT-93910 First Vx - Ix admin for Medicare patients 16:46:52 CDT CPT-79223 Fluzone Preservative Free Intramuscular Suspension 16:46 :51 CDT CPT-77281 CBC - LAB USE ONLY 17:14:46 CDT CPT-83925 HGBA1C - LAB USE ONLY 17:14:46 CDT CPT-54825 Venipuncture Draw Fee 17:14:46 CDT CPT-G0438 Initial Annual Wellness Exam 14:13:04 CDT CPT-78582 Breathing Tx 10:06:54 NUT PICKER CPT-09030 Postop F/U Visit 10:02:45 CDT CPT-LR Lesion Removal 09:02:56 CDT CPT-JTINJ Asp/Joint Injection 15:51:27 NUT PICKER CPT-OV Office Visit 15:52:02 NUT PICKER CPT-OV Office Visit 15:45:11 CDT CPT-000 Give Zostavax 14:09:06 CDT CPT-63654 Administration single or combination vaccine inc oral 15 :19:04 CDT CPT-00290 Zoster Vaccine (Zostavax) 15:19:04 CDT CPT-10746 Administration single or combination vaccine inc oral 20 :51:03 CDT CPT-53289 Influenza split virus > age 3 20:51:03 CDT CPT-91155 No Charge Offi Visit 14:52:03 CDT CPT-OV Office Visit 14:57:43 CDT CPT-OV Office Visit 15:22:32 CDT CPT-91460 Administration single or combination vaccine inc oral 11 :33:15 CDT CPT-87811 Influenza split virus > age 3 11:33:15 CDT
--- OUTSIDE RECORDS SUMMARY | 2018-04-25 14:55 | XMS REPORT | Clinical Summary ---
Author Author Admin, SACHI Organization [employer] Address Unknown Phone Unavailable Allergies, Adverse Reactions, [...] MD Edema Routine gynecological examination V72.31 Active uT Landeros MD Routine gynecological examination Upper respiratory [...] MG TABS 1 po BID VENLAFAXINE HCL 46099644966 Active Tu Landeros MD Active GABAPENTIN 100 MG CAPS 1 po BID GABAPENTIN 35361196542 Active José Luis Becerra MD Active REQUIP 2 MG TABS Take one tablet at bedtime prn ROPINIROLE HCL 36591134250 No Longer Active Tu Landeros MD Active VENTOLIN HFA 108 (90 BASE) MCG/ACT AERS 1-2 puffs every 4 hours if needed for cough/congestion ALBUTEROL SULFATE 58522133725 No Longer Active Ambika Aden APRN Active ZITHROMAX 250 MG TAB 2 po today, then 1 po q days 2-5 AZITHROMYCIN 65102237904 No Longer Active Miranda Suresh APRN Active METFORMIN HCL 1000 MG TABS 1 tablet by mouth twice daily METFORMIN HCL 24368835152 Active Tu Landeros MD Active FLONASE 50 MCG/ACT SUSP 1 spray each nostril twice daily until bottle empty FLUTICASONE PROPIONATE 88151141282 No Longer Active Tu Landeros MD Active COLACE 100 MG CAP 1 po BID PRN Constipation DOCUSATE SODIUM 34056293699 Active Tu Landeros MD Active SIMVASTATIN 40 MG TABS 0.5 tab daily at bedtime SIMVASTATIN 73700072485 Active Tu Landeros MD Active TRUERESULT BLOOD GLUCOSE W/DEVICE KIT test blood sugar twice daily dx 250.00 BLOOD GLUCOSE MONITORING SUPPL 55818225002 No Longer Active Tu Landeros MD Active TRUEDRAW LANCING DEVICE MISC Test twice a day dx 250.0 LANCET DEVICES 61889049575 No Longer Active Tu Landeros MD Active PREDNISONE 20 MG TAB 2 tablets once daily for 2 days, then 1 tablet once daily for 2 days PREDNISONE 92701788265 No Longer Active Tu Landeros MD Active DICLOFENAC SODIUM 50 MG TBEC 1 tablet by mouth three times a day as needed DICLOFENAC SODIUM 38649367871 No Longer Active Fab Morales DO Active TRUEDRAW LANCING DEVICE MISC test blood sugar twice daily dx: 250.00 LANCET DEVICES 43857212714 Active Tu Landeros MD Active TRUETEST TEST INVITR STRP test blood sugar twice daily. DX 250.0 GLUCOSE BLOOD 33485410360 Active Tu Landeros MD Active EMBRACE BLOOD GLUCOSE TEST STRP test blood sugar twice daily DX 250.0 2014 GLUCOSE BLOOD 47367264978 No Longer Active Tu Landeros MD Active TRUETEST TEST STRP test blood sugar three times daily dx: 250.00 GLUCOSE BLOOD 59640903112 No Longer Active Suze Corey VOGEL Active TRUERESULT BLOOD GLUCOSE W/DEVICE KIT use to test blood sugar tid dx: 250.00 BLOOD GLUCOSE MONITORING SUPPL 69101966437 No Longer Active Suze Corey RMA Active ALIGN 4 MG CAPS 1 tid PROBIOTIC PRODUCT 29233617163 No Longer Active Shaun Sy MD Active CIPRO 500 MG TABS 1 bid x 14 days start 09-28-13 CIPROFLOXACIN HCL 61345581381 No Longer Active Shaun Sy MD Active TRAMADOL HCL 50 MG TABS 1-2 tablets every 6 hours as needed for pain TRAMADOL HCL 53806258834 Active Tu Landeros MD Active HYDROCODONE-ACETAMINOPHEN 5-325 MG TABS 1 tab by mouth every 6 hours as needed for pain HYDROCODONE-ACETAMINOPHEN 35626695503 No Longer Active Tu Landeros MD Active OMEPRAZOLE 20 MG CPDR 1 po q a.m. OMEPRAZOLE 28107580516 Active Tu Landeros MD Active GABAPENTIN 100 MG CAPS 1 po bid GABAPENTIN 46512492133 No Longer Active Tu Landeros MD Active B-12 100 MCG TABS Take one by mouth daily CYANOCOBALAMIN 99699895624 No Longer Active Tu Landeros MD Active BACTRIM DS 800-160 MG TABS 1 bid x 14 day start 09-28-13 SULFAMETHOXAZOLE-TRIMETHOPRIM 46436084013 No Longer Active Tu Landeros MD Active CARVEDILOL 12.5 MG TABS 1 po BID CARVEDILOL 37880015672 Active Tu Landeros MD Active SUPER B COMPLEX/VITAMIN C TABS 1 qd B COMPLEX-C 26842303129 Active JASPREET Perez Active TRILIPIX 135 MG CPDR 1 q hs CHOLINE FENOFIBRATE 02242353439 Active Tu Landeros MD Active FENOFIBRATE 145 MG TABS 1 po qd FENOFIBRATE 28691385382 No Longer Active JASPREET Perez Active OMEPRAZOLE 20 MG TBEC 1 PO 30 MIN BEFORE 1ST MEAL OMEPRAZOLE 27134795944 No Longer Active JASPREET Perez Active SIMVASTATIN 40 MG TABS Take one by mouth daily SIMVASTATIN 54648253759 No Longer Active JASPREET Perez Active VENLAFAXINE HCL 75 MG TABS 1 po BID VENLAFAXINE HCL 68171707923 No Longer Active Gustavo Norma, RMA Active CIPRO 500 MG TAB 1 tablet by mouth twice daily CIPROFLOXACIN HCL 50666089236 No Longer Active Tu Landeros MD Active VENLAFAXINE HCL 37.5 MG TABS 1 po BID VENLAFAXINE HCL 45432255030 No Longer Active Suze Nicole RMA Active LAMISIL 250 MG TAB 1 po qd TERBINAFINE HCL 19177592623 No Longer Active Tu Landeros MD Active LORTAB 5 5-500 MG TABS 1/2 to 1 tablet by mouth every 4 hours as needed for pain HYDROCODONE-ACETAMINOPHEN 97230978187 No Longer Active Tu Landeros MD Active ENALAPRIL MALEATE 20 MG TABS 1.5 po qd ENALAPRIL MALEATE 49476061801 Active Tu Landeros MD Active HYDROCODONE-ACETAMINOPHEN 5-500 MG TABS take one po Q 4-6 hours prn HYDROCODONE-ACETAMINOPHEN 95121307616 No Longer Active Tu Landeros MD Active BACTRIM DS 800-160 MG TABS 1 po BID x 7 days SULFAMETHOXAZOLE-TRIMETHOPRIM 11090772780 No Longer Active Tu Landeros MD Active VENLAFAXINE HCL 75 MG TABS 1 po BID VENLAFAXINE HCL 10090052122 No Longer Active Elvira Cervantes MD PhD Active TRAMADOL HCL 50 MG TABS 1 tablets every 6 hours as needed for pain TRAMADOL HCL 37107172902 No Longer Active Tu Landeros MD Active ACCU-CHEK FASTCLIX LANCETS MISC Use to check bloodsugar three times daily as needed LANCETS 95389889936 No Longer Active Tu Landeros MD Active ACCU-CHEK KEOYNA PLUS STRP Use for testing bloodsugars three times daily as needed GLUCOSE BLOOD 10314587776 No Longer Active Tu Landeros MD Active ACCU-CHEK KEYONA PLUS W/DEVICE KIT Use for testing bloodsugars three times daily as needed BLOOD GLUCOSE MONITORING SUPPL 49708806157 No Longer Active Tu Landeros MD Active SPIRONOLACTONE 25 MG TAB 0.5 tablet by mouth daily SPIRONOLACTONE 58900932281 No Longer Active Tu Landeros MD Active ALPRAZOLAM 0.5 MG TABS 1 tab every 6hrs as needed ALPRAZOLAM 13128670418 No Longer Active Tu Landeros MD Active AUGMENTIN 875-125 MG TAB 1 tab by mouth twice daily with food AMOXICILLIN-POT CLAVULANATE 31285714616 No Longer Active Tu Landeros MD Active PREDNISONE 20 MG TAB 2 tabs daily for 3 days, 1 tab daily for 3 days, 1/2 tab daily for 2 days PREDNISONE 10709836244 No Longer Active Tu Landeros MD Active XANAX 0.5 MG TABS 1 tablet every 6 hrs prn ALPRAZOLAM 45254758753 No Longer Active Tu Landeros MD Active PREDNISONE 20 MG TAB 2 tabs daily for 3 days, 1 tab daily for 3 days, 1/2 tab daily for 2 days PREDNISONE 46023804850 No Longer Active Tu Landeros MD Active TRIAMCINOLONE ACETONIDE 0.1 % OINT Apply to affected areas TID for up to 2 weeks TRIAMCINOLONE ACETONIDE 96863372723 No Longer Active Tu Landeros MD Active LORTAB 5 5-500 MG TABS 1/2 to 1 tablet by mouth every 4 hours as needed for pain HYDROCODONE-ACETAMINOPHEN 35834580789 No Longer Active Tu Landeros MD Active MULTIVITAMINS TABS Take one by mouth daily MULTIPLE VITAMIN 99460805612 No Longer Active Tu Landeros MD Active MELATONIN 5 MG TABS Take one by mouth daily MELATONIN 59850083926 No Longer Active Tu Landeros MD Active SOMA 350 MG TAB 1 po q 6 hours prn spasm CARISOPRODOL 55900078148 No Longer Active Tu Landeros MD Active MECLIZINE HCL 25 MG CHEW TAB 1 four times a day as needed for dizziness 08/05 MECLIZINE HCL 11439451876 No Longer Active Fab Morales DO Active ANGEL BREEZE 2 TEST DISK test tid prn GLUCOSE BLOOD 24487176884 No Longer Active Negra Scott RN Active REGLAN 10 MG TAB 1 po TID PRN Nausea METOCLOPRAMIDE HCL 96864482933 No Longer Active Tu Landeros MD Active METFORMIN HCL 500 MG TABS 1 PO BID METFORMIN HCL 45910760727 No Longer Active Tu Landeros MD Active AMBIEN 10 MG TAB 1 tab by mouth at bedtime as needed for sleep ZOLPIDEM TARTRATE 83888749025 No Longer Active Tu Landeros MD Active FLUOXETINE HCL 40 MG CAPS 1 po q day FLUOXETINE HCL 95256514792 No Longer Active Mayrayolanda Sanchezr Active FISH OIL 1000 MG CAPS Take one by mouth daily OMEGA-3 FATTY ACIDS 55777236168 Active Tu Landeros MD Active GLUCOSAMINE 500 MG TABS Take 2 tab po qd GLUCOSAMINE 37570100769 Active Tu Landeros MD Active TRILIPIX 135 MG CPDR 1 po qd CHOLINE FENOFIBRATE 64535553449 No Longer Active Tu Landeros MD Active ASPIRIN 81 MG CHEW TAB 1 tablet by mouth daily ASPIRIN 15883479419 Active Tu Landeros MD Active FUROSEMIDE 40 MG TAB 1 tablet by mouth daily FUROSEMIDE 18258441872 Active Tu Landeros MD Active KLOR-CON 10 10 MEQ CR-TABS TAKE 2 TABS DAILY POTASSIUM CHLORIDE 06678817628 Active Tu Landeros MD Active ALPRAZOLAM 0.5 MG TABS 1 tab every 6hrs as needed ALPRAZOLAM 0.5 MG TABS 674244 ALPRAZOLAM Inactive AMBIEN 10 MG TAB 1 tab by mouth at bedtime as needed for sleep AMBIEN 10 MG TAB 409307 ZOLPIDEM TARTRATE Inactive BACTRIM DS 800-160 MG TABS 1 bid x 14 day start 09-28-13 BACTRIM DS 800-160 MG TABS 19820726 SULFAMETHOXAZOLE-TRIMETHOPRIM Inactive BACTRIM DS 800-160 MG TABS 1 po BID x 7 days BACTRIM DS 800-160 MG TABS 062698 SULFAMETHOXAZOLE-TRIMETHOPRIM Inactive CIPRO 500 MG TABS 1 bid x 14 days start 09-28-13 CIPRO 500 MG TABS 027878 CIPROFLOXACIN HCL Inactive CIPRO 500 MG TAB 1 tablet by mouth twice daily CIPRO 500 MG TAB 843091 CIPROFLOXACIN HCL Inactive MECLIZINE HCL 25 MG CHEW TAB 1 four times a day as needed for dizziness 08/05 MECLIZINE HCL 25 MG CHEW TAB 786927 MECLIZINE HCL Inactive MULTIVITAMINS TABS Take one by mouth daily MULTIVITAMINS TABS MULTIPLE VITAMIN Inactive PREDNISONE 20 MG TAB 2 tablets once daily for 2 days, then 1 tablet once daily for 2 days PREDNISONE 20 MG TAB 603015 PREDNISONE Inactive PREDNISONE 20 MG TAB 2 tabs daily for 3 days, 1 tab daily for 3 days, 1/2 tab daily for 2 days PREDNISONE 20 MG TAB 333797 PREDNISONE Inactive PREDNISONE 20 MG TAB 2 tabs daily for 3 days, 1 tab daily for 3 days, 1/2 tab daily for 2 days PREDNISONE 20 MG TAB 078878 PREDNISONE Inactive REGLAN 10 MG TAB 1 po TID PRN Nausea REGLAN 10 MG TAB 502177 METOCLOPRAMIDE HCL Inactive SOMA 350 MG TAB 1 po q 6 hours prn spasm SOMA 350 MG TAB 348909 CARISOPRODOL Inactive SPIRONOLACTONE 25 MG TAB 0.5 tablet by mouth daily SPIRONOLACTONE 25 MG TAB 936132 SPIRONOLACTONE Inactive TRIAMCINOLONE ACETONIDE 0.1 % OINT Apply to affected areas TID for up to 2 weeks TRIAMCINOLONE ACETONIDE 0.1 % OINT 7129477 TRIAMCINOLONE ACETONIDE Inactive XANAX 0.5 MG TABS 1 tablet every 6 hrs prn XANAX 0.5 MG TABS 588844 ALPRAZOLAM Inactive METFORMIN HCL 500 MG TABS 1 PO BID METFORMIN HCL 500 MG TABS 881903 METFORMIN HCL Inactive SIMVASTATIN 40 MG TABS Take one by mouth daily SIMVASTATIN 40 MG TABS 245426 SIMVASTATIN Inactive VENLAFAXINE HCL 75 MG TABS 1 po BID VENLAFAXINE HCL 75 MG TABS 636749 VENLAFAXINE HCL Inactive VENLAFAXINE HCL 75 MG TABS 1 po BID VENLAFAXINE HCL 75 MG TABS 905143 VENLAFAXINE HCL Inactive VENLAFAXINE HCL 37.5 MG TABS 1 po BID VENLAFAXINE HCL 37.5 MG TABS 741698 VENLAFAXINE HCL Inactive LORTAB 5 5-500 MG [...] for pain TRAMADOL HCL 50 MG TABS 717965 TRAMADOL HCL Inactive HYDROCODONE-ACETAMINOPHEN 5-500 MG TABS take one po Q 4-6 hours prn HYDROCODONE-ACETAMINOPHEN 5-500 MG TABS HYDROCODONE- ACETAMINOPHEN Inactive DICLOFENAC SODIUM 50 MG TBEC 1 tablet by mouth three times a day as needed DICLOFENAC SODIUM 50 MG TBEC 289516 DICLOFENAC SODIUM Inactive AUGMENTIN 875-125 MG TAB 1 tab by mouth twice daily with food AUGMENTIN 875-125 MG TAB 360325 AMOXICILLIN-POT CLAVULANATE Inactive LAMISIL 250 MG TAB 1 po qd LAMISIL 250 MG TAB 831382 TERBINAFINE HCL Inactive MELATONIN 5 MG TABS Take one by mouth daily MELATONIN 5 MG TABS 297383 MELATONIN Inactive GABAPENTIN 100 MG CAPS 1 po bid GABAPENTIN 100 MG CAPS 480176 GABAPENTIN Inactive ZITHROMAX 250 MG TAB 2 po today, then 1 po q days 2-5 ZITHROMAX 250 MG TAB 5526213 AZITHROMYCIN Inactive REQUIP 2 MG TABS Take one tablet at bedtime prn REQUIP 2 MG TABS 181967 ROPINIROLE HCL Inactive FLONASE 50 MCG/ACT SUSP [...] needed for pain HYDROCODONE-ACETAMINOPHEN 5-325 MG TABS 539153 HYDROCODONE-ACETAMINOPHEN Inactive FENOFIBRATE 145 MG TABS 1 po qd FENOFIBRATE 145 MG TABS 032530 FENOFIBRATE Inactive OMEPRAZOLE 20 MG TBEC 1 PO 30 MIN BEFORE 1ST MEAL OMEPRAZOLE 20 MG TBEC 039163 OMEPRAZOLE Inactive TRUERESULT BLOOD GLUCOSE W/DEVICE KIT [...] daily as needed ACCU-CHEK FASTCLIX LANCETS MISC 47952305868 LANCETS Inactive ACCU-CHEK KEYONA PLUS STRP Use for testing bloodsugars three times daily as needed ACCU-CHEK KEYONA PLUS STRP GLUCOSE BLOOD Inactive ACCU-CHEK KEYONA PLUS W/DEVICE KIT Use for testing bloodsugars three times daily as needed ACCU-CHEK EKYONA PLUS W/DEVICE KIT BLOOD GLUCOSE MONITORING SUPPL [...] Fluvirin, Fluarix, Agriflu(>=18 yo)) Fluzone (>3 yrs.) [[id number]] Influenza, seasonal, injectable influenza immunization (Flu Vax) has been administered 02/22/2012 influenza virus vaccine, unspecified formulation Seasonal influenza vaccine, injectable, containing preservative, for > 3 years old (Afluria, FluLaval, Fluzone, Fluvirin, Fluarix, Agriflu(>=18 yo)) Fluzone (>3 yrs.) [[id number]] Influenza, seasonal, injectable Vital Signs Date Name [...] 7.4 % 4.3-6.0 sodium, serum 140 mmol/L 632-361 7238/09/07 potassium, serum 4.3 mmol/L 3.5-5.2 chloride, serum 104 mmol/L 98-107 carbon dioxide, venous blood 27.7 mmol/L 21.0-32.0 blood glucose 156 mg/dL 65-110 calcium, serum 9.3 mg/dL 8.5-10.1 urea nitrogen, blood 23 mg/dL 7-18 creatinine, serum 1.21 mg/dL 0.55-1.30 Lab Report: Lipid Panel, Comp. Metabolic Panel - Chemistry cholesterol, serum 124 mg/dL 580-716 9611/01/12 triglyceride, serum, fasting 135 mg/dL 30-200 HDL cholesterol, serum 41 mg/dL 32-96 LDL cholesterol, serum 56 mg/dL 0-130 sodium, serum 140 mmol/L 667-293 5080/01/12 carbon dioxide, venous blood 27.7 mmol/L 21.0-32.0 potassium, serum 4.5 mmol/L 3.5-5.2 chloride, serum 104 mmol/L 98-107 blood glucose 139 mg/dL 65-110 urea nitrogen, blood 16 mg/dL 7-18 alanine aminotransferase (SGPT), serum 32 U/L 12-78 aspartate aminotransferase (SGOT), serum 25 U/L 15-37 calcium, serum 9.1 mg/dL 8.5-10.1 bilirubin, serum, total 0.50 mg/dL 0.00-1.00 Encounters Code Encounter Date Provider Facility CPT-38501 Level 4 Est. Patient 14:40:19 CDT Tu Landeros MD [facility] CPT-57190 Level 4 Est. Patient 14:06:04 HEAD OF PRODUCT Tu Landeros MD [facility] CPT-90346 Level 3 Est. Patient 14:05:18 HEAD OF PRODUCT Tu Landeros MD [facility] CPT-84302 Level 3 Est. Patient 10:06:54 HEAD OF PRODUCT Miranda Suresh APRN [facility] CPT-00950 Level 4 Est. Patient 13:50:18 HEAD OF PRODUCT Tu Landeros MD [facility] CPT-75214 Level 3 Est. Patient 10:30:04 CDT Tu Landeros MD [facility] CPT-20593 Level 4 Est. Patient 11:03:38 CDT Tu Landeros MD [facility] CPT-39072 Level 3 Est. Patient 10:20:44 CDT Fab Morales DO [facility] CPT-09405 Level 4 Est. Patient 14:38:57 CDT Tu Landeros MD [facility] CPT-48934 Level 4 Est. Patient 14:27:39 HEAD OF PRODUCT Tu Landeros MD [facility] CPT-30227 Level 4 Est. Patient 09:45:25 CDT Tu Landeros MD [facility] CPT-58463 Level 4 Est. Patient 09:05:20 HEAD OF PRODUCT Tu Landeros MD [facility] CPT-42758 Level 4 Est. Patient 14:09:06 CDT Tu Landeros MD [facility] CPT-75069 Level 3 Est. Patient 13:36:54 CDT Tu Landeros MD [facility] CPT-68654 Level 3 Est. Patient 08:59:14 CDT Tu Landeros MD [facility] CPT-00308 Level 3 Est. Patient 13:48:35 CDT Fab Morales DO [facility] CPT-39236 Level 4 Est. Patient 10:05:48 CDT Tu Landeros MD [facility] CPT-86765 Level 3 Est. Patient 13:38:[address] [facility] CPT-55259 Level 5 Est. Patient 08:08:[address] [facility] CPT-07363 Level 4 Est. Patient 14:23:38 CDT Tu Landeros MD [facility] CPT-25063 Level 3 Est. Patient 11:44:04 CDT Tu Landeros MD [facility] CPT-73711 Level 3 Est. Patient 11:03:20 HEAD OF PRODUCT Tu Landeros MD [facility] CPT-66339 Level 3 Est. Patient 11:03:14 HEAD OF PRODUCT Tu Landeros MD [facility] CPT-29805 Level 3 Est. Patient 12:42:49 CDT Tu Landeros MD [facility] CPT-27382 Level 3 Est. Patient 11:52:06 CDT Tu Landeros MD [facility] CPT-97211 Level 3 Est. Patient 13:58:11 CDT Tu Landeros MD [facility] CPT-29302 Level 3 Est. Patient 17:50:07 CDT Fab Morales DO [facility] CPT-69202 Level 3 Est. Patient 12:06:29 CDT Elvira Cervantes MD, PhD [facility] CPT-56352 Level 3 Est. Patient 15:50:32 CDT Tu Landeros MD [facility] CPT-33149 Level 4 Est. Patient 16:08:29 CDT Tu Landeros MD [facility] CPT-94236 Level 3 Est. Patient 16:04:19 CDT Tu Landeros MD [facility] CPT-33404 Level 3 Est. Patient 11:22:30 HEAD OF PRODUCT Tu Landeros MD [facility] CPT-11911 Level 4 Est. Patient 16:24:02 HEAD OF PRODUCT Tu Landeros MD [facility] CPT-22122 Level 3 Est. Patient 17:21:23 HEAD OF PRODUCT Tu Landeros MD [facility] Procedures Code Procedure Name Date Entry Date Standard Description CPT-59622 First Vx - Ix admin for Medicare patients 16:46:52 CDT CPT-89738 Fluzone Preservative Free Intramuscular Suspension 16:46 :51 CDT CPT-54914 CBC - LAB USE ONLY 17:14:46 CDT CPT-09369 HGBA1C - LAB USE ONLY 17:14:46 CDT CPT-36978 Venipuncture Draw Fee 17:14:46 CDT CPT-G0438 Initial Annual Wellness Exam 14:13:04 CDT CPT-26453 Breathing Tx 10:06:54 HEAD OF PRODUCT CPT-55374 Postop F/U Visit 10:02:45 CDT CPT-LR Lesion Removal 09:02:56 CDT CPT-JTINJ Asp/Joint Injection 15:51:27 HEAD OF PRODUCT CPT-OV Office Visit 15:52:02 HEAD OF PRODUCT CPT-OV Office Visit 15:45:11 CDT CPT-000 Give Zostavax 14:09:06 CDT CPT-43876 Administration single or combination vaccine inc oral 15 :19:04 CDT CPT-88715 Zoster Vaccine (Zostavax) 15:19:04 CDT CPT-54731 Administration single or combination vaccine inc oral 20 :51:03 CDT CPT-38759 Influenza split virus > age 3 20:51:03 CDT CPT-82421 No Charge Offi Visit 14:52:03 CDT CPT-OV Office Visit 14:57:43 CDT CPT-OV Office Visit 15:22:32 CDT CPT-88064 Administration single or combination vaccine inc oral 11 :33:15 CDT CPT-59952 Influenza split virus > age 3 11:33:15 CDT
--- OUTSIDE RECORDS SUMMARY | 2018-04-25 14:56 | XMS REPORT | Clinical Summary ---
Author Author Admin, SACHI Organization [facility] Address Unknown Phone Unavailable Allergies, Adverse Reactions, [...] Landeros MD Upper respiratory infection, viral ICD-465.9 Tesas Sy MD Open wound of other and [...] MG TABS 1 po BID VENLAFAXINE HCL 92862771302 Active Tu Landeros MD Active GABAPENTIN 100 MG CAPS 1 po BID GABAPENTIN 59831647234 Active José Luis Becerra MD Active REQUIP 2 MG TABS Take one tablet at bedtime prn ROPINIROLE HCL 36837368792 No Longer Active Tu Landeros MD Active VENTOLIN HFA 108 (90 BASE) MCG/ACT AERS 1-2 puffs every 4 hours if needed for cough/congestion ALBUTEROL SULFATE 32010762099 No Longer Active Ambika Aden APRN Active ZITHROMAX 250 MG TAB 2 po today, then 1 po q days 2-5 AZITHROMYCIN 45905323948 No Longer Active Miranda Suresh APRN Active METFORMIN HCL 1000 MG TABS 1 tablet by mouth twice daily METFORMIN HCL 87537656711 Active Tu Landeros MD Active FLONASE 50 MCG/ACT SUSP 1 spray each nostril twice daily until bottle empty FLUTICASONE PROPIONATE 06574469744 No Longer Active Tu Landeros MD Active COLACE 100 MG CAP 1 po BID PRN Constipation DOCUSATE SODIUM 03766035633 Active Tu Landeros MD Active SIMVASTATIN 40 MG TABS 0.5 tab daily at bedtime SIMVASTATIN 96868667782 Active Tu Landeros MD Active TRUERESULT BLOOD GLUCOSE W/DEVICE KIT test blood sugar twice daily dx 250.00 BLOOD GLUCOSE MONITORING SUPPL 87607356565 No Longer Active Tu Landeros MD Active TRUEDRAW LANCING DEVICE MISC Test twice a day dx 250.0 LANCET DEVICES 65240995137 No Longer Active Tu Landeros MD Active PREDNISONE 20 MG TAB 2 tablets once daily for 2 days, then 1 tablet once daily for 2 days PREDNISONE 20723816729 No Longer Active Tu Landeros MD Active DICLOFENAC SODIUM 50 MG TBEC 1 tablet by mouth three times a day as needed DICLOFENAC SODIUM 20502592394 No Longer Active Fab Morales DO Active TRUEDRAW LANCING DEVICE MISC test blood sugar twice daily dx: 250.00 LANCET DEVICES 84347813647 Active Tu Landeros MD Active TRUETEST TEST INVITR STRP test blood sugar twice daily. DX 250.0 GLUCOSE BLOOD 87731985496 Active Tu Landeros MD Active EMBRACE BLOOD GLUCOSE TEST STRP test blood sugar twice daily DX 250.0 2014 GLUCOSE BLOOD 14739410357 No Longer Active Tu Landeros MD Active TRUETEST TEST STRP test blood sugar three times daily dx: 250.00 GLUCOSE BLOOD 07946101488 No Longer Active Suze Corey VOGEL Active TRUERESULT BLOOD GLUCOSE W/DEVICE KIT use to test blood sugar tid dx: 250.00 BLOOD GLUCOSE MONITORING SUPPL 13248960902 No Longer Active Suze Corey RMA Active ALIGN 4 MG CAPS 1 tid PROBIOTIC PRODUCT 09571742479 No Longer Active Shaun Sy MD Active CIPRO 500 MG TABS 1 bid x 14 days start 09-28-13 CIPROFLOXACIN HCL 20947152583 No Longer Active Shaun Sy MD Active TRAMADOL HCL 50 MG TABS 1-2 tablets every 6 hours as needed for pain TRAMADOL HCL 20158951602 Active Tu Landeros MD Active HYDROCODONE-ACETAMINOPHEN 5-325 MG TABS 1 tab by mouth every 6 hours as needed for pain HYDROCODONE-ACETAMINOPHEN 06316530707 No Longer Active Tu Landeros MD Active OMEPRAZOLE 20 MG CPDR 1 po q a.m. OMEPRAZOLE 76269209086 Active Tu Landeros MD Active GABAPENTIN 100 MG CAPS 1 po bid GABAPENTIN 91807672572 No Longer Active Tu Landeros MD Active B-12 100 MCG TABS Take one by mouth daily CYANOCOBALAMIN 85859480255 No Longer Active Tu Landeros MD Active BACTRIM DS 800-160 MG TABS 1 bid x 14 day start 09-28-13 SULFAMETHOXAZOLE-TRIMETHOPRIM 58871929308 No Longer Active Tu Landeros MD Active CARVEDILOL 12.5 MG TABS 1 po BID CARVEDILOL 98045215199 Active Tu Landeros MD Active SUPER B COMPLEX/VITAMIN C TABS 1 qd B COMPLEX-C 74721839460 Active JASPREET Perez Active TRILIPIX 135 MG CPDR 1 q hs CHOLINE FENOFIBRATE 26703225448 Active Tu Landeros MD Active FENOFIBRATE 145 MG TABS 1 po qd FENOFIBRATE 47252503236 No Longer Active JASPREET Perez Active OMEPRAZOLE 20 MG TBEC 1 PO 30 MIN BEFORE 1ST MEAL OMEPRAZOLE 31253678732 No Longer Active JASPREET Perez Active SIMVASTATIN 40 MG TABS Take one by mouth daily SIMVASTATIN 54971883745 No Longer Active JASPREET Perez Active VENLAFAXINE HCL 75 MG TABS 1 po BID VENLAFAXINE HCL 84450801311 No Longer Active Gustavo Norma, RMA Active CIPRO 500 MG TAB 1 tablet by mouth twice daily CIPROFLOXACIN HCL 74836291889 No Longer Active Tu Landeros MD Active VENLAFAXINE HCL 37.5 MG TABS 1 po BID VENLAFAXINE HCL 33894180884 No Longer Active Suze Nicole RMA Active LAMISIL 250 MG TAB 1 po qd TERBINAFINE HCL 95936734888 No Longer Active Tu Landeros MD Active LORTAB 5 5-500 MG TABS 1/2 to 1 tablet by mouth every 4 hours as needed for pain HYDROCODONE-ACETAMINOPHEN 57261676985 No Longer Active Tu Landeros MD Active ENALAPRIL MALEATE 20 MG TABS 1.5 po qd ENALAPRIL MALEATE 66263080319 Active Tu Landeros MD Active HYDROCODONE-ACETAMINOPHEN 5-500 MG TABS take one po Q 4-6 hours prn HYDROCODONE-ACETAMINOPHEN 74926109469 No Longer Active Tu Landeros MD Active BACTRIM DS 800-160 MG TABS 1 po BID x 7 days SULFAMETHOXAZOLE-TRIMETHOPRIM 51484728273 No Longer Active Tu Landeros MD Active VENLAFAXINE HCL 75 MG TABS 1 po BID VENLAFAXINE HCL 34848886337 No Longer Active Elvira Cervantes MD PhD Active TRAMADOL HCL 50 MG TABS 1 tablets every 6 hours as needed for pain TRAMADOL HCL 11606603636 No Longer Active Tu Landeros MD Active ACCU-CHEK FASTCLIX LANCETS MISC Use to check bloodsugar three times daily as needed LANCETS 15375873444 No Longer Active Tu Landeros MD Active ACCU-CHEK KEYONA PLUS STRP Use for testing bloodsugars three times daily as needed GLUCOSE BLOOD 78149145232 No Longer Active Tu Landeros MD Active ACCU-CHEK KEYONA PLUS W/DEVICE KIT Use for testing bloodsugars three times daily as needed BLOOD GLUCOSE MONITORING SUPPL 20334136666 No Longer Active Tu Landeros MD Active SPIRONOLACTONE 25 MG TAB 0.5 tablet by mouth daily SPIRONOLACTONE 30657006869 No Longer Active Tu Landeros MD Active ALPRAZOLAM 0.5 MG TABS 1 tab every 6hrs as needed ALPRAZOLAM 84560080060 No Longer Active Tu Landeros MD Active AUGMENTIN 875-125 MG TAB 1 tab by mouth twice daily with food AMOXICILLIN-POT CLAVULANATE 32276169994 No Longer Active Tu Landeros MD Active PREDNISONE 20 MG TAB 2 tabs daily for 3 days, 1 tab daily for 3 days, 1/2 tab daily for 2 days PREDNISONE 84498376648 No Longer Active Tu Landeros MD Active XANAX 0.5 MG TABS 1 tablet every 6 hrs prn ALPRAZOLAM 06480489352 No Longer Active Tu Landeros MD Active PREDNISONE 20 MG TAB 2 tabs daily for 3 days, 1 tab daily for 3 days, 1/2 tab daily for 2 days PREDNISONE 86620918930 No Longer Active Tu Landeros MD Active TRIAMCINOLONE ACETONIDE 0.1 % OINT Apply to affected areas TID for up to 2 weeks TRIAMCINOLONE ACETONIDE 93764281626 No Longer Active Tu Landeros MD Active LORTAB 5 5-500 MG TABS 1/2 to 1 tablet by mouth every 4 hours as needed for pain HYDROCODONE-ACETAMINOPHEN 93754332951 No Longer Active Tu Landeros MD Active MULTIVITAMINS TABS Take one by mouth daily MULTIPLE VITAMIN 36189750343 No Longer Active Tu Landeros MD Active MELATONIN 5 MG TABS Take one by mouth daily MELATONIN 42130970400 No Longer Active Tu Landeros MD Active SOMA 350 MG TAB 1 po q 6 hours prn spasm CARISOPRODOL 31479150377 No Longer Active Tu Landeros MD Active MECLIZINE HCL 25 MG CHEW TAB 1 four times a day as needed for dizziness 08/05 MECLIZINE HCL 53566675957 No Longer Active Fab Morales DO Active ANGEL BREEZE 2 TEST DISK test tid prn GLUCOSE BLOOD 12996466201 No Longer Active Negra Scott RN Active REGLAN 10 MG TAB 1 po TID PRN [place]ausea METOCLOPRAMIDE HCL 93909100813 No Longer Active Tu Landeros MD Active METFORMIN HCL 500 MG TABS 1 PO BID METFORMIN HCL 09383753840 No Longer Active Tu Landeros MD Active AMBIEN 10 MG TAB 1 tab by mouth at bedtime as needed for sleep ZOLPIDEM TARTRATE 00773240146 No Longer Active Tu Landeros MD Active FLUOXETINE HCL 40 MG CAPS 1 po q day FLUOXETINE HCL 82392264242 No Longer Active May[place]olanda [place] Active FISH OIL 1000 MG CAPS Take one by mouth daily OMEGA-3 FATTY ACIDS 93653293077 Active Tu Landeros MD Active GLUCOSAMINE 500 MG TABS Take 2 tab po qd GLUCOSAMINE 50478341900 Active Tu Landeros MD Active TRILIPIX 135 MG CPDR 1 po qd CHOLINE FENOFIBRATE 69869071590 No Longer Active Tu Landeros MD Active ASPIRIN 81 MG CHEW TAB 1 tablet by mouth daily ASPIRIN 66318035202 Active Tu Landeros MD Active FUROSEMIDE 40 MG TAB 1 tablet by mouth daily FUROSEMIDE 42636059656 Active Tu Landeros MD Active KLOR-CON 10 10 MEQ CR-TABS TAKE 2 TABS DAILY POTASSIUM CHLORIDE 27603172822 Active Tu Landeros MD Active AMBIEN 10 MG TAB 1 tab by mouth at bedtime as needed for sleep AMBIEN 10 MG TAB 778936 ZOLPIDEM TARTRATE Inactive METFORMIN HCL 500 MG TABS 1 PO BID METFORMIN HCL 500 MG TABS 603064 METFORMIN HCL Inactive REGLAN 10 MG TAB 1 po TID PRN [place]ausea REGLAN 10 MG TAB 497822 METOCLOPRAMIDE HCL Inactive MECLIZINE HCL 25 MG CHEW TAB 1 four times a day as needed for dizziness 08/05 MECLIZINE HCL 25 MG CHEW TAB 522244 MECLIZINE HCL Inactive SOMA 350 MG TAB 1 po q 6 hours prn spasm SOMA 350 MG TAB 661769 CARISOPRODOL Inactive MELATONIN 5 MG TABS Take one by mouth daily MELATONIN 5 MG TABS 455607 MELATONIN Inactive MULTIVITAMINS TABS Take one by mouth daily MULTIVITAMINS TABS MULTIPLE VITAMIN Inactive LORTAB 5 5-500 MG TABS 1/2 to 1 tablet by mouth every 4 hours as needed for pain LORTAB 5 5-500 MG TABS HYDROCODONE- ACETAMINOPHEN Inactive XANAX 0.5 MG TABS 1 tablet every 6 hrs prn XANAX 0.5 MG TABS 952571 ALPRAZOLAM Inactive AUGMENTIN 875-125 MG TAB 1 tab by mouth twice daily with food AUGMENTIN 875-125 MG TAB 498758 AMOXICILLIN-POT CLAVULANATE Inactive ALPRAZOLAM 0.5 MG TABS 1 tab every 6hrs as needed ALPRAZOLAM 0.5 MG TABS 440363 ALPRAZOLAM Inactive SPIRONOLACTONE 25 MG TAB 0.5 tablet by mouth daily SPIRONOLACTONE 25 MG TAB 073104 SPIRONOLACTONE Inactive ACCU-CHEK KEYONA PLUS W/DEVICE KIT Use for testing bloodsugars three times daily as needed ACCU-CHEK KEYONA PLUS W/DEVICE KIT BLOOD GLUCOSE MONITORING SUPPL Inactive ACCU-CHEK KEYONA PLUS STRP Use for testing bloodsugars three times daily as needed ACCU-CHEK KEYONA PLUS STRP GLUCOSE BLOOD Inactive ACCU-CHEK FASTCLIX LANCETS MISC Use to check bloodsugar three times daily as needed ACCU-CHEK FASTCLIX LANCETS MISC 28315879961 [facility] Inactive TRAMADOL HCL 50 MG TABS 1 tablets every 6 hours as needed for pain TRAMADOL HCL 50 MG TABS 485732 TRAMADOL HCL Inactive VENLAFAXINE HCL 75 MG TABS 1 po BID VENLAFAXINE HCL 75 MG TABS 491009 VENLAFAXINE HCL Inactive HYDROCODONE-ACETAMINOPHEN 5-500 MG TABS take one po Q 4-6 hours prn HYDROCODONE-ACETAMINOPHEN 5-500 MG TABS HYDROCODONE- ACETAMINOPHEN Inactive LORTAB 5 5-500 MG TABS 1/2 to 1 tablet by mouth every 4 hours as needed for pain LORTAB 5 5-500 MG TABS HYDROCODONE- ACETAMINOPHEN Inactive LAMISIL 250 MG TAB 1 po qd LAMISIL 250 MG TAB 459604 TERBINAFINE HCL Inactive VENLAFAXINE HCL 37.5 MG TABS 1 po BID VENLAFAXINE HCL 37.5 MG TABS 039847 VENLAFAXINE HCL Inactive CIPRO 500 MG TAB 1 tablet by mouth twice daily CIPRO 500 MG TAB 827206 CIPROFLOXACIN HCL Inactive VENLAFAXINE HCL 75 MG TABS 1 po BID VENLAFAXINE HCL 75 MG TABS 699440 VENLAFAXINE HCL Inactive SIMVASTATIN 40 MG TABS Take one by mouth daily SIMVASTATIN 40 MG TABS 792412 SIMVASTATIN Inactive OMEPRAZOLE 20 MG TBEC 1 PO 30 MIN BEFORE 1ST MEAL OMEPRAZOLE 20 MG TBEC 605454 OMEPRAZOLE Inactive FENOFIBRATE 145 MG TABS 1 po qd FENOFIBRATE 145 MG TABS 497006 FENOFIBRATE Inactive BACTRIM DS 800-160 MG TABS 1 bid x 14 day start 09-28-13 BACTRIM DS 800-160 MG TABS 083392 SULFAMETHOXAZOLE-TRIMETHOPRIM Inactive B-12 100 MCG TABS Take one by mouth daily B-12 100 MCG TABS CYANOCOBALAMIN Inactive GABAPENTIN 100 MG CAPS 1 po bid GABAPENTIN 100 MG CAPS 390650 GABAPENTIN Inactive HYDROCODONE-ACETAMINOPHEN 5-325 MG TABS 1 tab by mouth every 6 hours as needed for pain HYDROCODONE-ACETAMINOPHEN 5-325 MG TABS 524246 HYDROCODONE-ACETAMINOPHEN Inactive CIPRO 500 MG TABS 1 bid x 14 days start 14 CIPRO 500 MG TABS 792587 CIPROFLOXACIN HCL Inactive ALIGN 4 MG CAPS [...] as needed DICLOFENAC SODIUM 50 MG TBEC 441716 DICLOFENAC SODIUM Inactive PREDNISONE 20 MG TAB 2 tablets once daily for 2 days, then 1 tablet once daily for 2 days PREDNISONE 20 MG TAB 120566 PREDNISONE Inactive TRUEDRAW LANCING DEVICE MISC Test [...] at bedtime prn REQUIP 2 MG TABS 331716 ROPINIROLE HCL Inactive TRIAMCINOLONE ACETONIDE 0.1 % OINT Apply to affected areas TID for up to 2 weeks TRIAMCINOLONE ACETONIDE 0.1 % OINT 2269509 TRIAMCINOLONE ACETONIDE Inactive PREDNISONE 20 MG TAB 2 tabs daily for 3 days, 1 tab daily for 3 days, 1/2 tab daily for 2 days PREDNISONE 20 MG TAB 265149 PREDNISONE Inactive PREDNISONE 20 MG TAB 2 tabs daily for 3 days, 1 tab daily for 3 days, 1/2 tab daily for 2 days PREDNISONE 20 MG TAB 738704 PREDNISONE Inactive BACTRIM DS 800-160 MG TABS 1 po BID x 7 days BACTRIM DS 800-160 MG TABS 588725 SULFAMETHOXAZOLE-TRIMETHOPRIM Inactive ZITHROMAX 250 MG TAB 2 po today, then 1 po q days 2-5 ZITHROMAX 250 MG TAB 2055326 AZITHROMYCIN Inactive Advance Directives Directive Description Start Date DISCUSSED WITH PATIENT -- NO DECISION MADE Immunizations Vaccine Administration Date Value Standard Description Seasonal influenza vaccine, injectable, containing preservative, for > 3 years old (Afluria, FluLaval, Fluzone, Fluvirin, Fluarix, Agriflu(>=18 yo)) Fluzone (>3 yrs.) [[id number]] Influenza, seasonal, injectable influenza immunization (Flu Vax) has been administered 02/22/2012 influenza virus vaccine, unspecified formulation Seasonal influenza vaccine, injectable, containing preservative, for > 3 years old (Afluria, FluLaval, Fluzone, Fluvirin, Fluarix, Agriflu(>=18 yo)) Fluzone (>3 yrs.) [[id number]] Influenza, seasonal, injectable Vital Signs Date Name [...] 7.4 % 4.3-6.0 sodium, serum 140 mmol/L 181-389 3740/09/07 potassium, serum 4.3 mmol/L 3.5-5.2 chloride, serum 104 mmol/L 98-107 carbon dioxide, venous blood 27.7 mmol/L 21.0-32.0 blood glucose 156 mg/dL 65-110 calcium, serum 9.3 mg/dL 8.5-10.1 urea nitrogen, blood 23 mg/dL 7-18 creatinine, serum 1.21 mg/dL 0.55-1.30 Lab Report: Lipid Panel, Comp. Metabolic Panel - Chemistry cholesterol, serum 124 mg/dL 631-337 5310/01/12 triglyceride, serum, fasting 135 mg/dL 30-200 HDL cholesterol, serum 41 mg/dL 32-96 LDL cholesterol, serum 56 mg/dL 0-130 sodium, serum 140 mmol/L 788-859 9249/01/12 carbon dioxide, venous blood 27.7 mmol/L 21.0-32.0 potassium, serum 4.5 mmol/L 3.5-5.2 chloride, serum 104 mmol/L 98-107 blood glucose 139 mg/dL 65-110 urea nitrogen, blood 16 mg/dL 7-18 alanine aminotransferase (SGPT), serum 32 U/L 12-78 aspartate aminotransferase (SGOT), serum 25 U/L 15-37 calcium, serum 9.1 mg/dL 8.5-10.1 bilirubin, serum, total 0.50 mg/dL 0.00-1.00 Encounters Code Encounter Date Provider Facility CPT-48023 Level 4 Est. Patient 14:40:19 CDT Tu Landeros MD [facility] CPT-42233 Level 4 Est. Patient 14:06:04 [employer] Tu Landeros MD [facility] CPT-68941 Level 3 Est. Patient 14:05:18 [employer] Tu Landeros MD [facility] CPT-16675 Level 3 Est. Patient 10:06:54 [employer] Miranda Suresh APRN [facility] CPT-94963 Level 4 Est. Patient 13:50:18 [employer] Tu Landeros MD [facility] CPT-31465 Level 3 Est. Patient 10:30:04 CDT Tu Landeros MD [facility] CPT-40187 Level 4 Est. Patient 11:03:38 CDT Tu Landeros MD [facility] CPT-45600 Level 3 Est. Patient 10:20:44 CDT Fab Morales DO [facility] CPT-55915 Level 4 Est. Patient 14:38:57 CDT Tu Landeros MD [facility] CPT-11136 Level 4 Est. Patient 14:27:39 [employer] Tu Landeros MD [facility] CPT-02031 Level 4 Est. Patient 09:45:25 CDT Tu Landeros MD [facility] CPT-04214 Level 4 Est. 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 Patient 14:09:06 CDT Tu Landeros MD [facility] CPT-52571 Level 3 Est. Patient 13:36:54 CDT Tu Landeros MD [facility] CPT-55421 Level 3 Est. Patient 08:59:14 CDT Tu Landeros MD [facility] CPT-04380 Level 3 Est. Patient 13:48:35 CDT Fab Morales DO [facility] CPT-37598 Level 4 Est. Patient 10:05:48 CDT Tu Landeros MD [facility] CPT-82867 Level 3 Est. Patient 13:38:42 CDT Marek BANKS [facility] CPT-29357 Level 5 Est. Patient 08:08:39 CDT Jerrica FRANCIS [facility] CPT-06424 Level 4 Est. Patient 14:23:38 CDT Tu Landeros MD [facility] CPT-38867 Level 3 Est. Patient 11:44:04 CDT Tu Landeros MD [facility] CPT-91522 Level 3 Est. Patient 11:03:20 [employer] Tu Landeros MD [facility] CPT-70708 Level 3 Est. Patient 11:03:14 J[employer] Tu Landeros MD [facility] CPT-52355 Level 3 Est. Patient 12:42:49 CDT Tu Landeros MD [facility] CPT-43732 Level 3 Est. Patient 11:52:06 CDT Tu Landeros MD [facility] CPT-07447 Level 3 Est. Patient 13:58:11 CDT Tu Landeros MD [facility] CPT-17289 Level 3 Est. Patient 17:50:07 CDT Fab Morales DO [facility] CPT-75033 Level 3 Est. Patient 12:06:29 CDT Elvira Cervantes MD, PhD [facility] CPT-77538 Level 3 Est. Patient 15:50:32 CDT Tu Landeros MD [facility] CPT-44625 Level 4 Est. Patient 16:08:29 CDT Tu Landeros MD [facility] CPT-17224 Level 3 Est. Patient 16:04:19 CDT Tu Landeros MD [facility] CPT-04215 Level 3 Est. Patient 11:22:30 [employer] Tu Landeros MD [facility] CPT-49658 Level 4 Est. 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 Patient 17:21:23 J[employer]NEYMAN [employer] Tu Landeros MD [facility] Procedures Code Procedure Name Date Entry Date Standard Description CPT-96110 First Vx - Ix admin for Medicare patients 16:46:52 CDT CPT-39987 Fluzone Preservative Free Intramuscular Suspension 16:46 :51 CDT CPT-40863 CBC - LAB USE ONLY 17:14:46 CDT CPT-99931 HGBA1C - LAB USE ONLY 17:14:46 CDT CPT-58723 Venipuncture Draw Fee 17:14:46 CDT CPT-G0438 Initial Annual Wellness Exam 14:13:04 CDT CPT-37443 Breathing Tx 10:06:54 [employer] CPT-05382 Postop F/U Visit 10:02:45 CDT CPT-LR Lesion Removal 09:02:56 CDT CPT-JTINJ Asp/Joint Injection 15:51:27 [employer] CPT-OV Office Visit 15:52:02 [employer] CPT-OV Office Visit 15:45:11 CDT CPT-000 Give Zostavax 14:09:06 CDT CPT-23257 Administration single or combination vaccine inc oral 15 :19:04 CDT CPT-66920 Zoster Vaccine (Zostavax) 15:19:04 CDT CPT-11009 Administration single or combination vaccine inc oral 20 :51:03 CDT CPT-52819 Influenza split virus > age 3 20:51:03 CDT CPT-80113 No Charge Offi Visit 14:52:03 CDT CPT-OV Office Visit 14:57:43 CDT CPT-OV Office Visit 15:22:32 CDT CPT-22051 Administration single or combination vaccine inc oral 11 :33:15 CDT CPT-10654 Influenza split virus > age 3 11:33:15 CDT
--- OUTSIDE RECORDS SUMMARY | 2018-04-25 14:58 | XMS REPORT | Clinical Summary ---
Author Author Admin, SACHI [employer] Address Unknown Phone Unavailable Allergies, Adverse Reactions, [...] AND OTHER NONSPECIFIC SKIN ERUPTION 782.1 Resolved uT Landeros MD Rash and other nonspecific skin [...] involving lower leg Obesity 278.00 Inactive Tu Landeors MD Obesity, unspecified Morbid obesity 278.01 Active [...] Cervantes MD PhD HEALTH SCREENING ICD-V70.0 Inactive Elivra Cervantes MD PhD 2011 INSOMNIA, PERSISTENT ICD-307.42 [...] Tu Landeros MD PARESTHESIA ICD-782.0 Inactive Tu Lnaderos MD RASH AND OTHER NONSPECIFIC SKIN ERUPTION [...] SYRUP 5ml po q6hr PRN Cough PROMETHAZINE-CODEINE 61996980891 No Longer Active Tu Landeros MD Active AZITHROMYCIN 250 MG ORAL TABLET 2 po qd x 1, then 1 po qd x 4 AZITHROMYCIN 84817600805 No Longer Active Tu Landeros MD Active GUAIFENESIN ER 600 MG ORAL TABLET EXTENDED RELEASE 12 HOUR 1 twice a day as needed for congestion GUAIFENESIN 21829228667 No Longer Active Tu Landeros MD Active PREDNISONE 20 MG ORAL TABLET 2 po qd x 5 days PREDNISONE 45583718498 No Longer Active Tu Landeros MD Active FLUTICASONE PROPIONATE 50 MCG/ACT NASAL SUSPENSION 2 sprays/nostril qd PRN Congestion/Allergies FLUTICASONE PROPIONATE 79875917003 Active Tu Landeros MD Active NASONEX 50 MCG/ACT NASAL SUSPENSION 2 actuations in each nostril q day 07/15 MOMETASONE FUROATE 82509594952 No Longer Active Tu Landeros MD Active MAGNESIUM OXIDE 400 MG ORAL TABLET 1 po BID MAGNESIUM OXIDE 14123634949 Active Tu Landeros MD Active SIMVASTATIN 20 MG ORAL TABLET 0.5 po qHS SIMVASTATIN 58302059956 Active Tu Landeros MD Active DICLOFENAC SODIUM 75 MG ORAL TABLET DELAYED RELEASE 1 po BID PRN Pain DICLOFENAC SODIUM 76278588555 No Longer Active Tu Landeros MD Active GABAPENTIN 100 MG ORAL CAPSULE 1 po TID GABAPENTIN 18362047585 Active Tu Landeros MD Active DICLOFENAC SODIUM 50 MG ORAL TABLET DELAYED RELEASE 1 po BID PRN Pain DICLOFENAC SODIUM 91303512614 No Longer Active Tu Landeros MD Active CYCLOBENZAPRINE HCL 10 MG ORAL TABLET 1 po TID PRN Muscle Spasm CYCLOBENZAPRINE HCL 30271382980 No Longer Active Tu Landeros MD Active INVOKANA 100 MG ORAL TABLET 1 po qd CANAGLIFLOZIN 16430484373 Active Tu Landeros MD Active GLIPIZIDE 5 MG ORAL TABLET 1 po qd GLIPIZIDE 43464963606 No Longer Active Tu Landeros MD Active VENLAFAXINE HCL 75 MG ORAL TABLET 1 po BID VENLAFAXINE HCL 90431881900 Active Tu Landeros MD Active GLIMEPIRIDE 1 MG ORAL TABLET 1 po qd GLIMEPIRIDE 94774257533 No Longer Active Tu Landeros MD Active TRUE METRIX BLOOD GLUCOSE TEST IN VITRO STRIP Test blood sugar BID Dx: E11.9 GLUCOSE BLOOD 34835635118 Active Tu Landeros MD Active TRUE METRIX AIR GLUCOSE METER w/Device KIT Test blood glucose BID Dx: E11.9 BLOOD GLUCOSE MONITORING SUPPL 68276597195 Active Tu Landeros MD Active TRUETEST TEST IN VITRO STRIP test blood sugar twice daily. DX 250.0 GLUCOSE BLOOD 62931202844 No Longer Active Mirna Stanley LPN Active TRUEDRAW LANCING DEVICE test blood sugar twice daily dx: 250.00 LANCET DEVICES 36161784684 No Longer Active Mirna Stanley LPN Active ENALAPRIL MALEATE 20 MG ORAL TABLET 2 po qd ENALAPRIL MALEATE 39906130634 Active Tu Landeros MD Active SUPER B COMPLEX/VITAMIN C ORAL TABLET 1 qd B COMPLEX- C 10389567259 No Longer Active Tu Landeros MD Active ASPIRIN EC 81 MG ORAL TABLET DELAYED RELEASE 1 po qd ASPIRIN 55432628915 Active Tu Landeros MD Active GLUCOSAMINE 500 MG TABS 2 po qd GLUCOSAMINE Active Tu Landeros MD Active FISH OIL 1000 MG ORAL CAPSULE 1 po qd OMEGA-3 FATTY ACIDS 74994729777 Active Tu Landeros MD Active METFORMIN HCL 1000 MG ORAL TABLET 1 po BID METFORMIN HCL 38577972862 Active Tu Landeros MD Active KLOR-CON 10 10 MEQ ORAL TABLET EXTENDED RELEASE 2 po qd POTASSIUM CHLORIDE 38246539537 Active Tu Landeros MD Active FUROSEMIDE 40 MG ORAL TABLET 1 po qd FUROSEMIDE 14796485154 Active Tu Landeros MD Active REQUIP 2 MG ORAL TABLET 1 po qHS PRN Restless legs ROPINIROLE HCL 15479979122 Active Tu Landeros MD Active REQUIP 2 MG ORAL TABLET Take one tablet at bedtime prn ROPINIROLE HCL 73135259284 No Longer Active Tu Landeros MD Active VENTOLIN HFA 108 (90 Base) MCG/ACT INHALATION AEROSOL SOLUTION 1-2 puffs every 4 hours if needed for cough/congestion ALBUTEROL SULFATE 42511527439 No Longer Active Ambika Aden APRN Active ZITHROMAX 250 MG ORAL TABLET 2 po today, then 1 po q days 2-5 AZITHROMYCIN 17532006149 No Longer Active Miranda Farah APRN Active FLONASE 50 MCG/ACT NASAL SUSPENSION 1 spray each nostril twice daily until bottle empty FLUTICASONE PROPIONATE 90611431874 No Longer Active Tu Landeros MD Active COLACE 100 MG ORAL CAPSULE 1 po BID PRN Constipation DOCUSATE SODIUM 37083300429 Active Tu Landeros MD Active TRUERESULT BLOOD GLUCOSE w/Device KIT test blood sugar twice daily dx 250.00 BLOOD GLUCOSE MONITORING SUPPL 85015280039 No Longer Active Tu Landeros MD Active TRUEDRAW LANCING DEVICE Test twice a day dx 250.0 LANCET DEVICES 84160958961 No Longer Active Tu Landeros MD Active PREDNISONE 20 MG ORAL TABLET 2 tablets once daily for 2 days, then 1 tablet once daily for 2 days PREDNISONE 30540313709 No Longer Active Tu Lanedros MD Active DICLOFENAC SODIUM 50 MG ORAL TABLET DELAYED RELEASE 1 tablet by mouth three times a day as needed DICLOFENAC SODIUM 97866348543 No Longer Active Fab Morales DO Active EMBRACE BLOOD GLUCOSE TEST IN VITRO STRIP test blood sugar twice daily DX 250.0 GLUCOSE BLOOD 28345542023 No Longer Active Tu Landeros MD Active TRUETEST TEST IN VITRO STRIP test blood sugar three times daily dx: 250.00 GLUCOSE BLOOD 78435755832 No Longer Active Suze VOGEL Active TRUERESULT BLOOD GLUCOSE w/Device KIT use to test blood sugar tid dx: 250.00 BLOOD GLUCOSE MONITORING SUPPL 39021438378 No Longer Active Suze VOGEL Active ALIGN 4 MG ORAL CAPSULE 1 tid PROBIOTIC PRODUCT 33485456365 No Longer Active Shaun Sy MD Active CIPRO 500 MG ORAL TABLET 1 bid x 14 days start 09-28-13 CIPROFLOXACIN HCL 43178931616 No Longer Active Shaun Sy MD Active TRAMADOL HCL 50 MG ORAL TABLET 1-2 tablets every 6 hours as needed for pain TRAMADOL HCL 65963757104 Active Tu Landeros MD Active HYDROCODONE-ACETAMINOPHEN 5-325 MG ORAL TABLET 1 tab by mouth every 6 hours as needed for pain HYDROCODONE-ACETAMINOPHEN 53624428166 No Longer Active Tu Landeros MD Active OMEPRAZOLE 20 MG ORAL CAPSULE DELAYED RELEASE 1 po q a.m. OMEPRAZOLE 78722217795 Active Fab Morales DO Active GABAPENTIN 100 MG ORAL CAPSULE 1 po bid GABAPENTIN 01206402468 No Longer Active Tu Landeros MD Active B-12 100 MCG ORAL TABLET Take one by mouth daily CYANOCOBALAMIN 23796508021 No Longer Active Tu Landeros MD Active BACTRIM DS 800-160 MG ORAL TABLET 1 bid x 14 day start 09-28-13 SULFAMETHOXAZOLE-TRIMETHOPRIM 71210620957 No Longer Active Tu Landeros MD Active CARVEDILOL 12.5 MG ORAL TABLET 1 po BID CARVEDILOL 06119141158 Active Tu Landeros MD Active TRILIPIX 135 MG ORAL CAPSULE DELAYED RELEASE 1 q hs CHOLINE FENOFIBRATE 34253308989 Active Tu Landeros MD Active FENOFIBRATE 145 MG ORAL TABLET 1 po qd FENOFIBRATE 23434359907 No Longer Active JASPREET Perez Active OMEPRAZOLE 20 MG ORAL TABLET DELAYED RELEASE 1 PO 30 MIN BEFORE 1ST MEAL 2010 OMEPRAZOLE 98877705401 No Longer Active JASPREET Perez Active SIMVASTATIN 40 MG ORAL TABLET Take one by mouth daily SIMVASTATIN 62795995628 No Longer Active JASPREET Perez Active VENLAFAXINE HCL 75 MG ORAL TABLET 1 po BID VENLAFAXINE HCL 43394862596 No Longer Active JASPREET Perez Active CIPRO 500 MG ORAL TABLET 1 tablet by mouth twice daily CIPROFLOXACIN HCL 10917504785 No Longer Active Tu Landeros MD Active VENLAFAXINE HCL 37.5 MG ORAL TABLET 1 po BID VENLAFAXINE HCL 89258492256 No Longer Active Suze VOGEL Active LAMISIL 250 MG ORAL TABLET 1 po qd TERBINAFINE HCL 75901531749 No Longer Active Tu Landeros MD Active LORTAB 5-500 MG ORAL TABLET 1/2 to 1 tablet by mouth every 4 hours as needed for pain HYDROCODONE-ACETAMINOPHEN 76302198193 No Longer Active Tu Landeros MD Active HYDROCODONE-ACETAMINOPHEN 5-500 MG ORAL TABLET take one po Q 4-6 hours prn HYDROCODONE-ACETAMINOPHEN 80257618352 No Longer Active Tu Landeros MD Active BACTRIM DS 800-160 MG ORAL TABLET 1 po BID x 7 days SULFAMETHOXAZOLE-TRIMETHOPRIM 64137997382 No Longer Active Tu Landeros MD Active VENLAFAXINE HCL 75 MG ORAL TABLET 1 po BID VENLAFAXINE HCL 74070290274 No Longer Active Elvira Cervantes MD PhD Active TRAMADOL HCL 50 MG ORAL TABLET 1 tablets every 6 hours as needed for pain TRAMADOL HCL 41815714537 No Longer Active Tu Landeros MD Active ACCU-CHEK FASTCLIX LANCETS Use to check bloodsugar three times daily as needed LANCETS 13555719698 No Longer Active Tu Landeros MD Active ACCU-CHEK KEYONA PLUS IN VITRO STRIP Use for testing bloodsugars three times daily as needed GLUCOSE BLOOD 21011953457 No Longer Active Tu Landeros MD Active ACCU-CHEK KEYONA PLUS w/Device KIT Use for testing bloodsugars three times daily as needed BLOOD GLUCOSE MONITORING SUPPL 59353050001 No Longer Active Tu Landeros MD Active SPIRONOLACTONE 25 MG ORAL TABLET 0.5 tablet by mouth daily 09/09 SPIRONOLACTONE 61577901261 No Longer Active Tu Landeros MD Active ALPRAZOLAM 0.5 MG ORAL TABLET 1 tab every 6hrs as needed ALPRAZOLAM 32025135364 No Longer Active Tu Landeros MD Active AUGMENTIN 875-125 MG ORAL TABLET 1 tab by mouth twice daily with food AMOXICILLIN-POT CLAVULANATE 44150827667 No Longer Active Tu Landeros MD Active PREDNISONE 20 MG ORAL TABLET 2 tabs daily for 3 days, 1 tab daily for 3 days, 1/2 tab daily for 2 days PREDNISONE 34469743436 No Longer Active Tu Landeros MD Active XANAX 0.5 MG ORAL TABLET 1 tablet every 6 hrs prn ALPRAZOLAM 34335862863 No Longer Active Tu Landeros MD Active PREDNISONE 20 MG ORAL TABLET 2 tabs daily for 3 days, 1 tab daily for 3 days, 1/2 tab daily for 2 days PREDNISONE 38328523146 No Longer Active Tu Landeros MD Active TRIAMCINOLONE ACETONIDE 0.1 % EXTERNAL OINTMENT Apply to affected areas TID for up to 2 weeks TRIAMCINOLONE ACETONIDE 16811283231 No Longer Active Tu Landeros MD Active LORTAB 5-500 MG ORAL TABLET 1/2 to 1 tablet by mouth every 4 hours as needed for pain HYDROCODONE-ACETAMINOPHEN 03105559087 No Longer Active Tu Landeros MD Active MULTIVITAMINS TABS Take one by mouth daily MULTIPLE VITAMIN 70410725229 No Longer Active Tu Landeros MD Active MELATONIN 5 MG ORAL TABLET Take one by mouth daily MELATONIN 68544267218 No Longer Active Tu Landeros MD Active SOMA 350 MG ORAL TABLET 1 po q 6 hours prn spasm CARISOPRODOL 17336476387 No Longer Active Tu Landeros MD Active MECLIZINE HCL 25 MG ORAL TABLET CHEWABLE 1 four times a day as needed for dizziness MECLIZINE HCL 13010663332 No Longer Active Fab Morales DO Active ANGEL BREEZE 2 TEST IN VITRO DISK test tid prn GLUCOSE BLOOD 14548105765 No Longer Active Negra Scott RN Active REGLAN 10 MG ORAL TABLET 1 po TID PRN Nausea METOCLOPRAMIDE HCL 29365330944 No Longer Active Tu Landeros MD Active METFORMIN HCL 500 MG ORAL TABLET 1 PO BID METFORMIN HCL 83208264273 No Longer Active Tu Landeros MD Active AMBIEN 10 MG ORAL TABLET 1 tab by mouth at bedtime as needed for sleep 06/10 ZOLPIDEM TARTRATE 04917086898 No Longer Active Tu Landeros MD Active FLUOXETINE HCL 40 MG ORAL CAPSULE 1 po q day FLUOXETINE HCL 58808424071 No Longer Active Mayra Terry Active TRILIPIX 135 MG ORAL CAPSULE DELAYED RELEASE 1 po qd CHOLINE FENOFIBRATE 92624383667 No Longer Active Tu Landeros MD Active AMBIEN 10 MG ORAL TABLET 1 tab by mouth at bedtime as needed for sleep 06/10 AMBIEN 10 MG ORAL TABLET 990382 ZOLPIDEM TARTRATE Inactive METFORMIN HCL 500 MG ORAL TABLET 1 PO BID METFORMIN HCL 500 MG ORAL TABLET 710302 METFORMIN HCL Inactive REGLAN 10 MG ORAL TABLET 1 po TID PRN Nausea REGLAN 10 MG ORAL TABLET 861761 METOCLOPRAMIDE HCL Inactive MECLIZINE HCL 25 MG ORAL TABLET CHEWABLE 1 four times a day as needed for dizziness MECLIZINE HCL 25 MG ORAL TABLET CHEWABLE 465538 MECLIZINE HCL Inactive SOMA 350 MG ORAL TABLET 1 po q 6 hours prn spasm SOMA 350 MG ORAL TABLET 075752 CARISOPRODOL Inactive MELATONIN 5 MG ORAL TABLET Take one by mouth daily MELATONIN 5 MG ORAL TABLET 567042 MELATONIN Inactive MULTIVITAMINS TABS Take one by mouth daily MULTIVITAMINS TABS MULTIPLE VITAMIN Inactive LORTAB 5-500 MG ORAL TABLET 1/2 to 1 tablet by mouth every 4 hours as needed for pain LORTAB 5-500 MG ORAL TABLET HYDROCODONE- ACETAMINOPHEN Inactive XANAX 0.5 MG ORAL TABLET 1 tablet every 6 hrs prn XANAX 0.5 MG ORAL TABLET 516369 ALPRAZOLAM Inactive AUGMENTIN 875-125 MG ORAL TABLET 1 tab by mouth twice daily with food AUGMENTIN 875-125 MG ORAL TABLET 308379 AMOXICILLIN-POT CLAVULANATE Inactive ALPRAZOLAM 0.5 MG ORAL TABLET 1 tab every 6hrs as needed ALPRAZOLAM 0.5 MG ORAL TABLET 781549 ALPRAZOLAM Inactive SPIRONOLACTONE 25 MG ORAL TABLET 0.5 tablet by mouth daily 09/09 SPIRONOLACTONE 25 MG ORAL TABLET 801469 SPIRONOLACTONE Inactive ACCU-CHEK KEYONA PLUS w/Device KIT [...] times daily as needed ACCU-CHEK FASTCLIX LANCETS 93536925642 LANCETS Inactive TRAMADOL HCL 50 MG ORAL TABLET 1 tablets every 6 hours as needed for pain TRAMADOL HCL 50 MG ORAL TABLET 885251 TRAMADOL HCL Inactive VENLAFAXINE HCL 75 MG ORAL TABLET 1 po BID VENLAFAXINE HCL 75 MG ORAL TABLET 652107 VENLAFAXINE HCL Inactive HYDROCODONE-ACETAMINOPHEN 5-500 MG ORAL TABLET take one po Q 4-6 hours prn HYDROCODONE-ACETAMINOPHEN 5-500 MG ORAL TABLET HYDROCODONE-ACETAMINOPHEN Inactive LORTAB 5-500 MG ORAL TABLET 1/2 to 1 tablet by mouth every 4 hours as needed for pain LORTAB 5-500 MG ORAL TABLET HYDROCODONE- ACETAMINOPHEN Inactive LAMISIL 250 MG ORAL TABLET 1 po qd LAMISIL 250 MG ORAL TABLET 083233 TERBINAFINE HCL Inactive VENLAFAXINE HCL 37.5 MG ORAL TABLET 1 po BID VENLAFAXINE HCL 37.5 MG ORAL TABLET 845868 VENLAFAXINE HCL Inactive CIPRO 500 MG ORAL TABLET 1 tablet by mouth twice daily CIPRO 500 MG ORAL TABLET 249613 CIPROFLOXACIN HCL Inactive VENLAFAXINE HCL 75 MG ORAL TABLET 1 po BID VENLAFAXINE HCL 75 MG ORAL TABLET 338922 VENLAFAXINE HCL Inactive SIMVASTATIN 40 MG ORAL TABLET Take one by mouth daily SIMVASTATIN 40 MG ORAL TABLET 970631 SIMVASTATIN Inactive OMEPRAZOLE 20 MG ORAL TABLET DELAYED RELEASE 1 PO 30 MIN BEFORE 1ST MEAL 2010 OMEPRAZOLE 20 MG ORAL TABLET DELAYED RELEASE 578264 OMEPRAZOLE Inactive FENOFIBRATE 145 MG ORAL TABLET 1 po qd FENOFIBRATE 145 MG ORAL TABLET 447166 FENOFIBRATE Inactive BACTRIM DS 800-160 MG ORAL TABLET 1 bid x 14 day start 09-28-13 BACTRIM DS 800-160 MG ORAL TABLET 229130 SULFAMETHOXAZOLE- TRIMETHOPRIM Inactive B-12 100 MCG ORAL TABLET Take one by mouth daily B-12 100 MCG ORAL TABLET CYANOCOBALAMIN Inactive GABAPENTIN 100 MG ORAL CAPSULE 1 po bid GABAPENTIN 100 MG ORAL CAPSULE 443572 GABAPENTIN Inactive HYDROCODONE-ACETAMINOPHEN 5-325 MG ORAL TABLET 1 tab by mouth every 6 hours as needed for pain HYDROCODONE-ACETAMINOPHEN 5-325 MG ORAL TABLET 832648 HYDROCODONE-ACETAMINOPHEN Inactive CIPRO 500 MG ORAL TABLET 1 bid x 14 days start 09-28-13 CIPRO 500 MG ORAL TABLET 316367 CIPROFLOXACIN HCL Inactive ALIGN 4 MG ORAL [...] SODIUM 50 MG ORAL TABLET DELAYED RELEASE 803409 DICLOFENAC SODIUM Inactive PREDNISONE 20 MG ORAL TABLET 2 tablets once daily for 2 days, then 1 tablet once daily for 2 days PREDNISONE 20 MG ORAL TABLET 255604 PREDNISONE Inactive TRUEDRAW LANCING DEVICE Test twice a day dx 250.0 TRUEDRAW LANCING DEVICE LANCET DEVICES Inactive TRUERESULT BLOOD GLUCOSE w/Device KIT test blood sugar twice daily dx 250.00 TRUERESULT BLOOD GLUCOSE w/Device KIT BLOOD GLUCOSE MONITORING SUPPL Inactive FLONASE 50 MCG/ACT NASAL SUSPENSION 1 spray each nostril twice daily until bottle empty FLONASE 50 MCG/ACT NASAL SUSPENSION 4401001 FLUTICASONE PROPIONATE Inactive VENTOLIN HFA 108 (90 Base) MCG/ACT INHALATION AEROSOL SOLUTION 1-2 puffs every 4 hours if needed for cough/congestion VENTOLIN HFA 108 (90 Base) MCG/ACT INHALATION AEROSOL SOLUTION ALBUTEROL SULFATE Inactive REQUIP 2 MG ORAL TABLET Take one tablet at bedtime prn REQUIP 2 MG ORAL TABLET 677277 ROPINIROLE HCL Inactive SUPER B COMPLEX/VITAMIN C ORAL TABLET 1 qd SUPER B COMPLEX/VITAMIN C ORAL TABLET 03543333497 B COMPLEX-C Inactive TRUEDRAW LANCING DEVICE test blood sugar twice daily dx: 250.00 TRUEDRAW LANCING DEVICE LANCET DEVICES Inactive TRUETEST TEST IN VITRO STRIP test blood sugar twice daily. DX 250.0 TRUETEST TEST IN VITRO STRIP GLUCOSE BLOOD Inactive CYCLOBENZAPRINE HCL 10 MG ORAL TABLET 1 po TID PRN Muscle Spasm CYCLOBENZAPRINE HCL 10 MG ORAL TABLET 755533 CYCLOBENZAPRINE HCL Inactive DICLOFENAC SODIUM 50 MG ORAL TABLET DELAYED RELEASE 1 po BID PRN Pain DICLOFENAC SODIUM 50 MG ORAL TABLET DELAYED RELEASE 567474 DICLOFENAC SODIUM Inactive DICLOFENAC SODIUM 75 MG ORAL TABLET DELAYED RELEASE 1 po BID PRN Pain DICLOFENAC SODIUM 75 MG ORAL TABLET DELAYED RELEASE 491327 DICLOFENAC SODIUM Inactive NASONEX 50 MCG/ACT NASAL SUSPENSION 2 actuations in each nostril q day 07/15 NASONEX 50 MCG/ACT NASAL SUSPENSION 0948290 MOMETASONE FUROATE Inactive GUAIFENESIN ER 600 MG ORAL TABLET EXTENDED RELEASE 12 HOUR 1 twice a day as needed for congestion GUAIFENESIN ER 600 MG ORAL TABLET EXTENDED RELEASE 12 HOUR GUAIFENESIN Inactive AZITHROMYCIN 250 MG ORAL TABLET 2 po qd x 1, then 1 po qd x 4 AZITHROMYCIN 250 MG ORAL TABLET 736511 AZITHROMYCIN Inactive PROMETHAZINE-CODEINE 6.25-10 MG/5ML ORAL SYRUP 5ml po q6hr PRN Cough PROMETHAZINE-CODEINE 6.25-10 MG/5ML ORAL SYRUP 683490 PROMETHAZINE-CODEINE Inactive TRIAMCINOLONE ACETONIDE 0.1 % EXTERNAL OINTMENT Apply to affected areas TID for up to 2 weeks TRIAMCINOLONE ACETONIDE 0.1 % EXTERNAL OINTMENT 6999935 TRIAMCINOLONE ACETONIDE Inactive PREDNISONE 20 MG ORAL TABLET 2 tabs daily for 3 days, 1 tab daily for 3 days, 1/2 tab daily for 2 days PREDNISONE 20 MG ORAL TABLET 401831 PREDNISONE Inactive PREDNISONE 20 MG ORAL TABLET 2 tabs daily for 3 days, 1 tab daily for 3 days, 1/2 tab daily for 2 days PREDNISONE 20 MG ORAL TABLET 008890 PREDNISONE Inactive BACTRIM DS 800-160 MG ORAL TABLET 1 po BID x 7 days BACTRIM DS 800-160 MG ORAL TABLET 486831 SULFAMETHOXAZOLE-TRIMETHOPRIM Inactive ZITHROMAX 250 MG ORAL TABLET 2 po today, then 1 po q days 2-5 ZITHROMAX 250 MG ORAL TABLET 769294 AZITHROMYCIN Inactive PREDNISONE 20 MG ORAL TABLET 2 po qd x 5 days PREDNISONE 20 MG ORAL TABLET 141024 PREDNISONE Inactive Advance Directives Directive Description Start Date DISCUSSED WITH PATIENT -- NO DECISION MADE Immunizations Vaccine Administration Date Value Standard Description Seasonal influenza vaccine, injectable, containing preservative, for > 3 years old (Afluria, FluLaval, Fluzone, Fluvirin, Fluarix, Agriflu(>=18 yo)) Fluzone (>3 yrs.) [[id number]] Influenza, seasonal, injectable influenza immunization (Flu Vax) has been administered 02/22/2012 influenza virus vaccine, unspecified formulation Seasonal influenza vaccine, injectable, containing preservative, for > 3 years old (Afluria, FluLaval, Fluzone, Fluvirin, Fluarix, Agriflu(>=18 yo)) Fluzone (>3 yrs.) [[id number]] Influenza, seasonal, injectable Vital Signs Date Name [...] ... - Chemistry sodium, serum 141 mmol/L 407-841 9382/01/16 carbon dioxide, venous blood 28.3 mmol/L 21.0-32.0 [...] 6.7 % 4.3-6.0 cholesterol, serum 106 mg/dL 329-856 1545/01/16 triglyceride, serum, fasting 173 mg/dL 30-200 HDL [...] 4.3-6.0 Encounters Code Encounter Date Provider Facility CPT-83822 Level 3 Est. Patient 09:11:32 CDT Tu Landeros MD [facility] CPT-19121 Level 3 Est. Patient 10:13:19 SILK WEAVER Lesli Kellogg [facility] CPT-13917 Level 4 Est. Patient 13:42:02 SILK WEAVER Tu Landeros MD [facility] CPT-69470 Level 3 Est. Patient 14:20:36 CDT Tu Landeros MD [facility] CPT-34241 Level 4 Est. Patient 14:28:34 CDT Tu Landeros MD [facility] CPT-70079 Level 3 Est. Patient 13:33:09 CDT Tu Landeros MD [facility] CPT-46122 Level 4 Est. Patient 14:29:21 CDT Tu Landeros MD [facility] CPT-27344 Level 4 Est. Patient 09:08:17 SILK WEAVER Tu Landeros MD [facility] CPT-36876 Level 4 Est. Patient 14:40:19 CDT Tu Landeros MD [facility] CPT-84794 Level 4 Est. Patient 14:06:04 SILK WEAVER Tu Landeros MD [facility] CPT-63796 Level 3 Est. Patient 14:05:18 SILK WEAVER Tu Landeros MD [facility] CPT-11420 Level 3 Est. Patient 10:06:54 SILK WEAVER Miranda Farah [facility] CPT-65007 Level 4 Est. Patient 13:50:18 SILK WEAVER [facility]662 Level 3 Est. Patient 10:30:04 CDT Tu Landeros MD [facility] CPT-08115 Level 4 Est. Patient 11:03:38 CDT Tu Landeros MD [facility] CPT-80014 Level 3 Est. Patient 10:20:44 CDT Fab Morales DO [facility] CPT-20664 Level 4 Est. Patient 14:38:57 CDT Tu Landeros MD [facility] CPT-34289 Level 4 Est. Patient 14:27:39 SILK WEAVER Tu Landeros MD [facility] CPT-47146 Level 4 Est. Patient 09:45:25 CDT Tu Landeros MD [facility] CPT-58745 Level 4 Est. Patient 09:05:20 SILK WEAVER Tu Landeros MD [facility] CPT-93433 Level 4 Est. Patient 14:09:06 CDT Tu Landeros MD [facility] CPT-82610 Level 3 Est. Patient 13:36:54 CDT Tu Landeros MD [facility] CPT-18390 Level 3 Est. Patient 08:59:14 CDT Tu Landeros MD [facility] CPT-96098 Level 3 Est. Patient 13:48:35 CDT Fab Morales DO [facility] CPT-45134 Level 4 Est. Patient 10:05:48 CDT Tu Landeros MD [facility] CPT-49176 Level 3 Est. Patient 13:38:42 CDT Marek BANKS [facility] CPT-08671 Level 5 Est. Patient 08:08:39 CDT Jerrica FRANCIS [facility] CPT-97156 Level 4 Est. Patient 14:23:38 CDT Tu Landeros MD [facility] CPT-40421 Level 3 Est. Patient 11:44:04 CDT Tu Landeros MD [facility] CPT-79692 Level 3 Est. Patient 11:03:20 SILK WEAVER Tu Landeros MD [facility] CPT-09310 Level 3 Est. Patient 11:03:14 SILK WEAVER Tu Landeros MD [facility] CPT-96196 Level 3 Est. Patient 12:42:49 CDT Tu Landeros MD [facility] CPT-12552 Level 3 Est. Patient 11:52:06 CDT Tu Landeros MD [facility] CPT-92358 Level 3 Est. Patient 13:58:11 CDT Tu Landeros MD [facility] CPT-73102 Level 3 Est. Patient 17:50:07 CDT Fab Morales DO [facility] CPT-89370 Level 3 Est. Patient 12:06:29 CDT Elvira Cervantes MD, PhD [facility] CPT-47196 Level 3 Est. Patient 15:50:32 CDT Tu Landeros MD [facility] CPT-11625 Level 4 Est. Patient 16:08:29 CDT Tu Landeros MD [facility] CPT-13455 Level 3 Est. Patient 16:04:19 CDT Tu Landeros MD [facility] CPT-50901 Level 3 Est. Patient 11:22:30 SILK WEAVER Tu Landeros MD [facility] CPT-82858 Level 4 Est. Patient 16:24:02 SILK WEAVER Tu Landeros MD [facility] CPT-81553 Level 3 Est. Patient 17:21:23 SILK WEAVER Tu Landeros MD [facility] Procedures Code Procedure Name Date Entry Date Standard Description CPT-01447 Shoulder, right, comp min 2V - XRAY USE ONLY 13:50:22 CDT CPT-G0009 Administration of Pneumococcal Vaccine 15:08:26 CDT CPT-43954 Prevnar 13 Intramuscular Suspension 15:08:26 CDT 10/08 CPT-G0439 Subsequent Annual Wellness Exam 14:29:22 CDT CPT-37951 Venipuncture Draw Fee 13:15:35 CDT CPT-26278 Magnesium - LAB USE ONLY 11:14:20 SILK WEAVER CPT-55830 Lipid - LAB USE ONLY 11:14:20 SILK WEAVER CPT-34920 HGBA1C - LAB USE ONLY 11:14:20 SILK WEAVER CPT-79887 CMP - LAB USE ONLY 11:14:19 SILK WEAVER CPT-95643 CBC - LAB USE ONLY 11:14:19 SILK WEAVER CPT-72484 Venipuncture Draw Fee 11:14:18 SILK WEAVER CPT-76683 First Vx - Ix admin for Medicare patients 16:46:52 CDT CPT-85897 Fluzone Preservative Free Intramuscular Suspension 16:46 :51 CDT CPT-06071 CBC - LAB USE ONLY 17:14:46 CDT CPT-78757 HGBA1C - LAB USE ONLY 17:14:46 CDT CPT-83524 Venipuncture Draw Fee 17:14:46 CDT CPT-G0438 Initial Annual Wellness Exam 14:13:04 CDT CPT-90328 Breathing Tx 10:06:54 [employer] CPT-87675 Postop F/U Visit 10:02:45 CDT CPT-LR Lesion Removal 09:02:56 CDT CPT-JTINJ Asp/Joint Injection 15:51:27 [employer] CPT-OV Office Visit 15:52:02 [employer] CPT-OV Office Visit 15:45:11 CDT CPT-000 Give Zostavax 14:09:06 CDT CPT-82747 Administration single or combination vaccine inc oral 15 :19:04 CDT CPT-07814 Zoster Vaccine (Zostavax) 15:19:04 CDT CPT-50566 Administration single or combination vaccine inc oral 20 :51:03 CDT CPT-65936 Influenza split virus > age 3 20:51:03 CDT CPT-16572 No Charge Offi Visit 14:52:03 CDT CPT-OV Office Visit 14:57:43 CDT CPT-OV Office Visit 15:22:32 CDT CPT-82511 Administration single or combination vaccine inc oral 11 :33:15 CDT CPT-92326 Influenza split virus > age 3 11:33:15 CDT
--- OUTSIDE RECORDS SUMMARY | 2018-04-25 14:59 | XMS REPORT | Clinical Summary ---
Author Author Admin, SACHI Organization [employer] Address Unknown Phone Unavailable Allergies, Adverse [...] ORAL TABLET 1 po BID MAGNESIUM OXIDE 13669041321 Active Tu Landeros MD Active SIMVASTATIN 20 MG ORAL TABLET 0.5 po qHS SIMVASTATIN 94382887316 Active Tu Landeros MD Active DICLOFENAC SODIUM 75 MG ORAL TABLET DELAYED RELEASE 1 po BID PRN Pain DICLOFENAC SODIUM 62260965907 No Longer Active Tu Landeros MD Active GABAPENTIN 100 MG ORAL CAPSULE 1 po TID GABAPENTIN 12022432326 Active Tu Landeros MD Active DICLOFENAC SODIUM 50 MG ORAL TABLET DELAYED RELEASE 1 po BID PRN Pain DICLOFENAC SODIUM 43104030059 No Longer Active Tu Landeros MD Active CYCLOBENZAPRINE HCL 10 MG ORAL TABLET 1 po TID PRN Muscle Spasm CYCLOBENZAPRINE HCL 63906723109 No Longer Active Tu Landeros MD Active INVOKANA 100 MG ORAL TABLET 1 po qd CANAGLIFLOZIN 93450001958 Active Tu Landeros MD Active GLIPIZIDE 5 MG ORAL TABLET 1 po qd GLIPIZIDE 49777533989 No Longer Active Tu Landeros MD Active VENLAFAXINE HCL 75 MG ORAL TABLET 1 po BID VENLAFAXINE HCL 23369701566 Active Tu Landeros MD Active GLIMEPIRIDE 1 MG ORAL TABLET 1 po qd GLIMEPIRIDE 55916441626 No Longer Active Tu Landeros MD Active TRUE METRIX BLOOD GLUCOSE TEST IN VITRO STRIP Test blood sugar BID Dx: E11.9 GLUCOSE BLOOD 57314994988 Active Tu Landeros MD Active TRUE METRIX AIR GLUCOSE METER w/Device KIT Test blood glucose BID Dx: E11.9 BLOOD GLUCOSE MONITORING SUPPL 61104028190 Active Tu Landeros MD Active TRUETEST TEST IN VITRO STRIP test blood sugar twice daily. DX 250.0 GLUCOSE BLOOD 49945198349 No Longer Active Mirna Stanley LPN Active TRUEDRAW LANCING DEVICE test blood sugar twice daily dx: 250.00 LANCET DEVICES 74807992250 No Longer Active Mirna Stanley LPN Active ENALAPRIL MALEATE 20 MG ORAL TABLET 2 po qd ENALAPRIL MALEATE 29265735752 Active Tu Landeros MD Active SUPER B COMPLEX/VITAMIN C ORAL TABLET 1 qd B COMPLEX- C 24259720937 No Longer Active Tu Landeros MD Active ASPIRIN EC 81 MG ORAL TABLET DELAYED RELEASE 1 po qd ASPIRIN 40403052398 Active Tu Landeros MD Active GLUCOSAMINE 500 MG TABS 2 po qd GLUCOSAMINE Active Tu Landeros MD Active FISH OIL 1000 MG ORAL CAPSULE 1 po qd OMEGA-3 FATTY ACIDS 46500773602 Active Tu Landeros MD Active METFORMIN HCL 1000 MG ORAL TABLET 1 po BID METFORMIN HCL 35313001583 Active Tu Landeros MD Active KLOR-CON 10 10 MEQ ORAL TABLET EXTENDED RELEASE 2 po qd POTASSIUM CHLORIDE 87272522647 Active Tu Landeros MD Active FUROSEMIDE 40 MG ORAL TABLET 1 po qd FUROSEMIDE 58375772016 Active Tu Landeros MD Active REQUIP 2 MG ORAL TABLET 1 po qHS PRN Restless legs ROPINIROLE HCL 16134025454 Active Tu Landeros MD Active REQUIP 2 MG ORAL TABLET Take one tablet at bedtime prn ROPINIROLE HCL 83620468770 No Longer Active Tu Landeros MD Active VENTOLIN HFA 108 (90 Base) MCG/ACT INHALATION AEROSOL SOLUTION 1-2 puffs every 4 hours if needed for cough/congestion ALBUTEROL SULFATE 87015261970 No Longer Active Ambika Aden APRN Active ZITHROMAX 250 MG ORAL TABLET 2 po today, then 1 po q days 2-5 AZITHROMYCIN 92181470797 No Longer Active Miranda Suresh APRN Active FLONASE 50 MCG/ACT NASAL SUSPENSION 1 spray each nostril twice daily until bottle empty FLUTICASONE PROPIONATE 75045431846 No Longer Active Tu Landeros MD Active COLACE 100 MG ORAL CAPSULE 1 po BID PRN Constipation DOCUSATE SODIUM 80372504305 Active Tu Landeros MD Active TRUERESULT BLOOD GLUCOSE w/Device KIT test blood sugar twice daily dx 250.00 BLOOD GLUCOSE MONITORING SUPPL 26911363136 No Longer Active Tu Landeros MD Active TRUEDRAW LANCING DEVICE Test twice a day dx 250.0 LANCET DEVICES 97683211312 No Longer Active uT Landeros MD Active PREDNISONE 20 MG ORAL TABLET 2 tablets once daily for 2 days, then 1 tablet once daily for 2 days PREDNISONE 40869845213 No Longer Active Tu Landeros MD Active DICLOFENAC SODIUM 50 MG ORAL TABLET DELAYED RELEASE 1 tablet by mouth three times a day as needed DICLOFENAC SODIUM 98853266483 No Longer Active Fab Morales DO Active EMBRACE BLOOD GLUCOSE TEST IN VITRO STRIP test blood sugar twice daily DX 250.0 GLUCOSE BLOOD 55332049797 No Longer Active Tu Landeros MD Active TRUETEST TEST IN VITRO STRIP test blood sugar three times daily dx: 250.00 GLUCOSE BLOOD 25838228471 No Longer Active Suze VOGEL Active TRUERESULT BLOOD GLUCOSE w/Device KIT use to test blood sugar tid dx: 250.00 BLOOD GLUCOSE MONITORING SUPPL 97771067493 No Longer Active Suze Corey VOGEL Active ALIGN 4 MG ORAL CAPSULE 1 tid PROBIOTIC PRODUCT 06240760205 No Longer Active Shaun Sy MD Active CIPRO 500 MG ORAL TABLET 1 bid x 14 days start 09-28-13 CIPROFLOXACIN HCL 49685562686 No Longer Active Shaun Sy MD Active TRAMADOL HCL 50 MG ORAL TABLET 1-2 tablets every 6 hours as needed for pain TRAMADOL HCL 05988998792 Active Tu Landeros MD Active HYDROCODONE-ACETAMINOPHEN 5-325 MG ORAL TABLET 1 tab by mouth every 6 hours as needed for pain HYDROCODONE-ACETAMINOPHEN 08164988302 No Longer Active Tu Landeros MD Active OMEPRAZOLE 20 MG ORAL CAPSULE DELAYED RELEASE 1 po q a.m. OMEPRAZOLE 55012986961 Active Fab Morales DO Active GABAPENTIN 100 MG ORAL CAPSULE 1 po bid GABAPENTIN 28127249472 No Longer Active Tu Landeros MD Active B-12 100 MCG ORAL TABLET Take one by mouth daily CYANOCOBALAMIN 77804483112 No Longer Active Tu Landeros MD Active BACTRIM DS 800-160 MG ORAL TABLET 1 bid x 14 day start 09-28-13 SULFAMETHOXAZOLE-TRIMETHOPRIM 82398735036 No Longer Active Tu Landeros MD Active CARVEDILOL 12.5 MG ORAL TABLET 1 po BID CARVEDILOL 89046680054 Active Tu Landeros MD Active TRILIPIX 135 MG ORAL CAPSULE DELAYED RELEASE 1 q hs CHOLINE FENOFIBRATE 58589716870 Active Tu Landeros MD Active FENOFIBRATE 145 MG ORAL TABLET 1 po qd FENOFIBRATE 94855360229 No Longer Active JASPREET Perez Active OMEPRAZOLE 20 MG ORAL TABLET DELAYED RELEASE 1 PO 30 MIN BEFORE 1ST MEAL 2010 OMEPRAZOLE 10841626444 No Longer Active JASPREET Perez Active SIMVASTATIN 40 MG ORAL TABLET Take one by mouth daily SIMVASTATIN 38924464696 No Longer Active JASPREET Perez Active VENLAFAXINE HCL 75 MG ORAL TABLET 1 po BID VENLAFAXINE HCL 96956593475 No Longer Active JASPREET Perez Active CIPRO 500 MG ORAL TABLET 1 tablet by mouth twice daily CIPROFLOXACIN HCL 35405229127 No Longer Active Tu Landeros MD Active VENLAFAXINE HCL 37.5 MG ORAL TABLET 1 po BID VENLAFAXINE HCL 82906995992 No Longer Active Suze VOGEL Active LAMISIL 250 MG ORAL TABLET 1 po qd TERBINAFINE HCL 59367351601 No Longer Active Tu Landeros MD Active LORTAB 5-500 MG ORAL TABLET 1/2 to 1 tablet by mouth every 4 hours as needed for pain HYDROCODONE-ACETAMINOPHEN 92023328929 No Longer Active Tu Landeros MD Active HYDROCODONE-ACETAMINOPHEN 5-500 MG ORAL TABLET take one po Q 4-6 hours prn HYDROCODONE-ACETAMINOPHEN 57945144488 No Longer Active Tu Landeros MD Active BACTRIM DS 800-160 MG ORAL TABLET 1 po BID x 7 days SULFAMETHOXAZOLE-TRIMETHOPRIM 20357168966 No Longer Active Tu Landeros MD Active VENLAFAXINE HCL 75 MG ORAL TABLET 1 po BID VENLAFAXINE HCL 42271818081 No Longer Active Elvira Cervantes MD PhD Active TRAMADOL HCL 50 MG ORAL TABLET 1 tablets every 6 hours as needed for pain TRAMADOL HCL 52141099811 No Longer Active Tu Landeros MD Active ACCU-CHEK FASTCLIX LANCETS Use to check bloodsugar three times daily as needed LANCETS 63053166983 No Longer Active Tu Landeros MD Active ACCU-CHEK KEYONA PLUS IN VITRO STRIP Use for testing bloodsugars three times daily as needed GLUCOSE BLOOD 43221798567 No Longer Active Tu Landeros MD Active ACCU-CHEK KEYONA PLUS w/Device KIT Use for testing bloodsugars three times daily as needed BLOOD GLUCOSE MONITORING SUPPL 84468533763 No Longer Active Tu Landeros MD Active SPIRONOLACTONE 25 MG ORAL TABLET 0.5 tablet by mouth daily 09/09 SPIRONOLACTONE 40673345134 No Longer Active Tu Landeros MD Active ALPRAZOLAM 0.5 MG ORAL TABLET 1 tab every 6hrs as needed ALPRAZOLAM 34367110376 No Longer Active Tu Landeros MD Active AUGMENTIN 875-125 MG ORAL TABLET 1 tab by mouth twice daily with food AMOXICILLIN-POT CLAVULANATE 36835322250 No Longer Active Tu Ladneros MD Active PREDNISONE 20 MG ORAL TABLET 2 tabs daily for 3 days, 1 tab daily for 3 days, 1/2 tab daily for 2 days PREDNISONE 39327311737 No Longer Active Tu Landeros MD Active XANAX 0.5 MG ORAL TABLET 1 tablet every 6 hrs prn ALPRAZOLAM 67604573590 No Longer Active Tu Landeros MD Active PREDNISONE 20 MG ORAL TABLET 2 tabs daily for 3 days, 1 tab daily for 3 days, 1/2 tab daily for 2 days PREDNISONE 85261000004 No Longer Active Tu Landeros MD Active TRIAMCINOLONE ACETONIDE 0.1 % EXTERNAL OINTMENT Apply to affected areas TID for up to 2 weeks TRIAMCINOLONE ACETONIDE 67292792617 No Longer Active Tu Landeros MD Active LORTAB 5-500 MG ORAL TABLET 1/2 to 1 tablet by mouth every 4 hours as needed for pain HYDROCODONE-ACETAMINOPHEN 00317430468 No Longer Active Tu Landeros MD Active MULTIVITAMINS TABS Take one by mouth daily MULTIPLE VITAMIN 46712123126 No Longer Active Tu Landeros MD Active MELATONIN 5 MG ORAL TABLET Take one by mouth daily MELATONIN 87260364243 No Longer Active Tu Landeros MD Active SOMA 350 MG ORAL TABLET 1 po q 6 hours prn spasm CARISOPRODOL 99403844587 No Longer Active Tu Landeros MD Active MECLIZINE HCL 25 MG ORAL TABLET CHEWABLE 1 four times a day as needed for dizziness MECLIZINE HCL 63424146669 No Longer Active Fab Morales DO Active ANGEL BREEZE 2 TEST IN VITRO DISK test tid prn GLUCOSE BLOOD 01148288544 No Longer Active Negra Scott RN Active REGLAN 10 MG ORAL TABLET 1 po TID PRN Nausea METOCLOPRAMIDE HCL 39580066349 No Longer Active Tu Landeros MD Active METFORMIN HCL 500 MG ORAL TABLET 1 PO BID METFORMIN HCL 75444913431 No Longer Active Tu Landeros MD Active AMBIEN 10 MG ORAL TABLET 1 tab by mouth at bedtime as needed for sleep 06/10 ZOLPIDEM TARTRATE 94625152102 No Longer Active Tu Landeros MD Active FLUOXETINE HCL 40 MG ORAL CAPSULE 1 po q day FLUOXETINE HCL 00638596848 No Longer Active Mayra Terry Active TRILIPIX 135 MG ORAL CAPSULE DELAYED RELEASE 1 po qd CHOLINE FENOFIBRATE 64626597257 No Longer Active Tu Landeros MD Active AMBIEN 10 MG ORAL TABLET 1 tab by mouth at bedtime as needed for sleep 06/10 AMBIEN 10 MG ORAL TABLET 339214 ZOLPIDEM TARTRATE Inactive METFORMIN HCL 500 MG ORAL TABLET 1 PO BID METFORMIN HCL 500 MG ORAL TABLET 320534 METFORMIN HCL Inactive REGLAN 10 MG ORAL TABLET 1 po TID PRN Nausea REGLAN 10 MG ORAL TABLET 894073 METOCLOPRAMIDE HCL Inactive MECLIZINE HCL 25 MG ORAL TABLET CHEWABLE 1 four times a day as needed for dizziness MECLIZINE HCL 25 MG ORAL TABLET CHEWABLE 736572 MECLIZINE HCL Inactive SOMA 350 MG ORAL TABLET 1 po q 6 hours prn spasm SOMA 350 MG ORAL TABLET 294000 CARISOPRODOL Inactive MELATONIN 5 MG ORAL TABLET Take one by mouth daily MELATONIN 5 MG ORAL TABLET 331520 MELATONIN Inactive MULTIVITAMINS TABS Take one by mouth daily MULTIVITAMINS TABS MULTIPLE VITAMIN Inactive LORTAB 5-500 MG ORAL TABLET 1/2 to 1 tablet by mouth every 4 hours as needed for pain LORTAB 5-500 MG ORAL TABLET 227235 HYDROCODONE-ACETAMINOPHEN Inactive XANAX 0.5 MG ORAL TABLET 1 tablet every 6 hrs prn XANAX 0.5 MG ORAL TABLET 501217 ALPRAZOLAM Inactive AUGMENTIN 875-125 MG ORAL TABLET 1 tab by mouth twice daily with food AUGMENTIN 875-125 MG ORAL TABLET 039326 AMOXICILLIN-POT CLAVULANATE Inactive ALPRAZOLAM 0.5 MG ORAL TABLET 1 tab every 6hrs as needed ALPRAZOLAM 0.5 MG ORAL TABLET 178168 ALPRAZOLAM Inactive SPIRONOLACTONE 25 MG ORAL TABLET 0.5 tablet by mouth daily 09/09 SPIRONOLACTONE 25 MG ORAL TABLET 760772 SPIRONOLACTONE Inactive ACCU-CHEK KEYONA PLUS w/Device KIT [...] times daily as needed ACCU-CHEK FASTCLIX LANCETS 06195559511 LANCETS Inactive TRAMADOL HCL 50 MG ORAL TABLET 1 tablets every 6 hours as needed for pain TRAMADOL HCL 50 MG ORAL TABLET 380387 TRAMADOL HCL Inactive VENLAFAXINE HCL 75 MG ORAL TABLET 1 po BID VENLAFAXINE HCL 75 MG ORAL TABLET 805899 VENLAFAXINE HCL Inactive HYDROCODONE-ACETAMINOPHEN 5-500 MG ORAL TABLET take one po Q 4-6 hours prn HYDROCODONE-ACETAMINOPHEN 5-500 MG ORAL TABLET 325411 HYDROCODONE-ACETAMINOPHEN Inactive LORTAB 5-500 MG ORAL TABLET 1/2 to 1 tablet by mouth every 4 hours as needed for pain LORTAB 5-500 MG ORAL TABLET 266451 HYDROCODONE-ACETAMINOPHEN Inactive LAMISIL 250 MG ORAL TABLET 1 po qd LAMISIL 250 MG ORAL TABLET 903568 TERBINAFINE HCL Inactive VENLAFAXINE HCL 37.5 MG ORAL TABLET 1 po BID VENLAFAXINE HCL 37.5 MG ORAL TABLET 816500 VENLAFAXINE HCL Inactive CIPRO 500 MG ORAL TABLET 1 tablet by mouth twice daily CIPRO 500 MG ORAL TABLET 760619 CIPROFLOXACIN HCL Inactive VENLAFAXINE HCL 75 MG ORAL TABLET 1 po BID VENLAFAXINE HCL 75 MG ORAL TABLET 451236 VENLAFAXINE HCL Inactive SIMVASTATIN 40 MG ORAL TABLET Take one by mouth daily SIMVASTATIN 40 MG ORAL TABLET 248233 SIMVASTATIN Inactive OMEPRAZOLE 20 MG ORAL TABLET DELAYED RELEASE 1 PO 30 MIN BEFORE 1ST MEAL 2010 OMEPRAZOLE 20 MG ORAL TABLET DELAYED RELEASE 033257 OMEPRAZOLE Inactive FENOFIBRATE 145 MG ORAL TABLET 1 po qd FENOFIBRATE 145 MG ORAL TABLET 485764 FENOFIBRATE Inactive BACTRIM DS 800-160 MG ORAL TABLET 1 bid x 14 day start 09-28-13 BACTRIM DS 800-160 MG ORAL TABLET 638969 SULFAMETHOXAZOLE- TRIMETHOPRIM Inactive B-12 100 MCG ORAL TABLET Take one by mouth daily B-12 100 MCG ORAL TABLET CYANOCOBALAMIN Inactive GABAPENTIN 100 MG ORAL CAPSULE 1 po bid GABAPENTIN 100 MG ORAL CAPSULE 369107 GABAPENTIN Inactive HYDROCODONE-ACETAMINOPHEN 5-325 MG ORAL TABLET 1 tab by mouth every 6 hours as needed for pain HYDROCODONE-ACETAMINOPHEN 5-325 MG ORAL TABLET 011693 HYDROCODONE-ACETAMINOPHEN Inactive CIPRO 500 MG ORAL TABLET 1 bid x 14 days start 09-28-13 CIPRO 500 MG ORAL TABLET 145464 CIPROFLOXACIN HCL Inactive ALIGN 4 MG ORAL [...] SODIUM 50 MG ORAL TABLET DELAYED RELEASE 830173 DICLOFENAC SODIUM Inactive PREDNISONE 20 MG ORAL TABLET 2 tablets once daily for 2 days, then 1 tablet once daily for 2 days PREDNISONE 20 MG ORAL TABLET 654343 PREDNISONE Inactive TRUEDRAW LANCING DEVICE Test twice a day dx 250.0 TRUEDRAW LANCING DEVICE LANCET DEVICES Inactive TRUERESULT BLOOD GLUCOSE w/Device KIT test blood sugar twice daily dx 250.00 TRUERESULT BLOOD GLUCOSE w/Device KIT BLOOD GLUCOSE MONITORING SUPPL Inactive FLONASE 50 MCG/ACT NASAL SUSPENSION 1 spray each nostril twice daily until bottle empty FLONASE 50 MCG/ACT NASAL SUSPENSION 1924414 FLUTICASONE PROPIONATE Inactive VENTOLIN HFA 108 (90 Base) MCG/ACT INHALATION AEROSOL SOLUTION 1-2 puffs every 4 hours if needed for cough/congestion VENTOLIN HFA 108 (90 Base) MCG/ACT INHALATION AEROSOL SOLUTION ALBUTEROL SULFATE Inactive REQUIP 2 MG ORAL TABLET Take one tablet at bedtime prn REQUIP 2 MG ORAL TABLET 228113 ROPINIROLE HCL Inactive SUPER B COMPLEX/VITAMIN C ORAL TABLET 1 qd SUPER B COMPLEX/VITAMIN C ORAL TABLET 65414861232 B COMPLEX-C Inactive TRUEDRAW LANCING DEVICE test blood sugar twice daily dx: 250.00 TRUEDRAW LANCING DEVICE LANCET DEVICES Inactive TRUETEST TEST IN VITRO STRIP test blood sugar twice daily. DX 250.0 TRUETEST TEST IN VITRO STRIP GLUCOSE BLOOD Inactive CYCLOBENZAPRINE HCL 10 MG ORAL TABLET 1 po TID PRN Muscle Spasm CYCLOBENZAPRINE HCL 10 MG ORAL TABLET 627123 CYCLOBENZAPRINE HCL Inactive DICLOFENAC SODIUM 50 MG ORAL TABLET DELAYED RELEASE 1 po BID PRN Pain DICLOFENAC SODIUM 50 MG ORAL TABLET DELAYED RELEASE 226955 DICLOFENAC SODIUM Inactive DICLOFENAC SODIUM 75 MG ORAL TABLET DELAYED RELEASE 1 po BID PRN Pain DICLOFENAC SODIUM 75 MG ORAL TABLET DELAYED RELEASE 756548 DICLOFENAC SODIUM Inactive TRIAMCINOLONE ACETONIDE 0.1 % EXTERNAL OINTMENT Apply to affected areas TID for up to 2 weeks TRIAMCINOLONE ACETONIDE 0.1 % EXTERNAL OINTMENT 3731329 TRIAMCINOLONE ACETONIDE Inactive PREDNISONE 20 MG ORAL TABLET 2 tabs daily for 3 days, 1 tab daily for 3 days, 1/2 tab daily for 2 days PREDNISONE 20 MG ORAL TABLET 656272 PREDNISONE Inactive PREDNISONE 20 MG ORAL TABLET 2 tabs daily for 3 days, 1 tab daily for 3 days, 1/2 tab daily for 2 days PREDNISONE 20 MG ORAL TABLET 371778 PREDNISONE Inactive BACTRIM DS 800-160 MG ORAL TABLET 1 po BID x 7 days BACTRIM DS 800-160 MG ORAL TABLET 101937 SULFAMETHOXAZOLE-TRIMETHOPRIM Inactive ZITHROMAX 250 MG ORAL TABLET 2 po today, then 1 po q days 2-5 ZITHROMAX 250 MG ORAL TABLET 325942 AZITHROMYCIN Inactive Advance Directives Directive Description Start Date DISCUSSED WITH PATIENT -- NO DECISION MADE Immunizations Vaccine Administration Date Value Standard Description Seasonal influenza vaccine, injectable, containing preservative, for > 3 years old (Afluria, FluLaval, Fluzone, Fluvirin, Fluarix, Agriflu(>=18 yo)) Fluzone (>3 yrs.) [[id number]] Influenza, seasonal, injectable influenza immunization (Flu Vax) has been administered 02/22/2012 influenza virus vaccine, unspecified formulation Seasonal influenza vaccine, injectable, containing preservative, for > 3 years old (Afluria, FluLaval, Fluzone, Fluvirin, Fluarix, Agriflu(>=18 yo)) Fluzone (>3 yrs.) [[id number]] Influenza, seasonal, injectable Vital Signs Date Name [...] ... - Chemistry sodium, serum 141 mmol/L 738-916 0985/01/16 carbon dioxide, venous blood 28.3 mmol/L 21.0-32.0 [...] 6.7 % 4.3-6.0 cholesterol, serum 106 mg/dL 900-848 7205/01/16 triglyceride, serum, fasting 173 mg/dL 30-200 HDL [...] A1c - Chemistry cholesterol, serum 135 mg/dL 789-195 8589/05/17 HDL cholesterol, serum 41 mg/dL > OR=46 triglyceride, serum, fasting 206 mg/dL <150 LDL cholesterol, serum 53 MG/DL (CALC) mg/dL <130 cholesterol/HDL ratio, serum 3.3 (calc) < OR=5.0 Lab Report: HGBA1C - Chemistry hemoglobin A1C, blood, as % of total hemoglobin 6.5 % 4.3-6.0 Encounters Code Encounter Date Provider Facility CPT-65237 Level 4 Est. Patient 13:42:02 LOAN ORIGINATOR Tu Landeros MD [facility] CPT-40512 Level 3 Est. Patient 14:20:36 CDT Tu Landeros MD [facility] CPT-09877 Level 4 Est. Patient 14:28:34 CDT Tu Landeros MD [facility] CPT-81966 Level 3 Est. Patient 13:33:09 CDT Tu Landeros MD [facility] CPT-73629 Level 4 Est. Patient 14:29:21 CDT Tu Landeros MD [facility] CPT-75419 Level 4 Est. Patient 09:08:17 LOAN ORIGINATOR Tu Landeros MD [facility] CPT-79315 Level 4 Est. Patient 14:40:19 CDT Tu Landeros MD [facility] CPT-85916 Level 4 Est. Patient 14:06:04 LOAN ORIGINATOR Tu Landeros MD [facility] CPT-48867 Level 3 Est. Patient 14:05:18 LOAN ORIGINATOR Tu Landeros MD [facility] CPT-31527 Level 3 Est. Patient 10:06:54 LOAN ORIGINATOR Miranda Suresh APRN [facility] CPT-89432 Level 4 Est. Patient 13:50:18 LOAN ORIGINATOR Tu Landeros MD [facility] CPT-47490 Level 3 Est. Patient 10:30:04 CDT Tu Landeros MD [facility] CPT-47345 Level 4 Est. Patient 11:03:38 CDT Tu Landeros MD [facility] CPT-37673 Level 3 Est. Patient 10:20:44 CDT Fab Morales DO [facility] CPT-94004 Level 4 Est. Patient 14:38:57 CDT Tu Landeros MD [facility] CPT-81441 Level 4 Est. Patient 14:27:39 LOAN ORIGINATOR Tu Landeros MD [facility] CPT-86204 Level 4 Est. Patient 09:45:25 CDT Tu Landeros MD [facility] CPT-80845 Level 4 Est. Patient 09:05:20 LOAN ORIGINATOR Tu Landeros MD [facility] CPT-76729 Level 4 Est. Patient 14:09:06 CDT Tu Landeros MD [facility] CPT-49781 Level 3 Est. Patient 13:36:54 CDT Tu Landeros MD [facility] CPT-41113 Level 3 Est. Patient 08:59:14 CDT Tu Landeros MD [facility] CPT-79133 Level 3 Est. Patient 13:48:35 CDT Fab Morales DO [facility] CPT-15319 Level 4 Est. Patient 10:05:48 CDT Tu Landeros MD [facility] CPT-24389 Level 3 Est. Patient 13:38:42 CDT Marek BANKS [facility] CPT-35409 Level 5 Est. Patient 08:08:39 CDT Jerrica FRANCIS [facility] CPT-62497 Level 4 Est. Patient 14:23:38 CDT Tu Landeros MD [facility] CPT-36457 Level 3 Est. Patient 11:44:04 CDT Tu Landeros MD [facility] CPT-98205 Level 3 Est. Patient 11:03:20 LOAN ORIGINATOR Tu Landeros MD [facility] CPT-26636 Level 3 Est. Patient 11:03:14 LOAN ORIGINATOR Tu Landeros MD [facility] CPT-58812 Level 3 Est. Patient 12:42:49 CDT Tu Landeros MD [facility] CPT-61651 Level 3 Est. Patient 11:52:06 CDT uT Landeros MD [facility] CPT-27132 Level 3 Est. Patient 13:58:11 CDT Tu Landeros MD [facility] CPT-27001 Level 3 Est. Patient 17:50:07 CDT Fab Morales DO [facility] CPT-21949 Level 3 Est. Patient 12:06:29 CDT Elvira Cervantes MD, PhD [facility] CPT-36322 Level 3 Est. Patient 15:50:32 CDT Tu Landeros MD [facility] CPT-67028 Level 4 Est. Patient 16:08:29 CDT Tu Landeros MD [facility] CPT-39851 Level 3 Est. Patient 16:04:19 CDT Tu Landeros MD [facility] CPT-02709 Level 3 Est. Patient 11:22:30 LOAN ORIGINATOR Tu Landeros MD [facility] CPT-76708 Level 4 Est. Patient 16:24:02 LOAN ORIGINATOR Tu Landeros MD [facility] CPT-34498 Level 3 Est. Patient 17:21:23 LOAN ORIGINATOR Tu Landeros MD [facility] Procedures Code Procedure Name Date Entry Date Standard Description CPT-11752 Shoulder, right, comp min 2V - XRAY USE ONLY 13:50:22 CDT CPT-G0009 Administration of Pneumococcal Vaccine 15:08:26 CDT CPT-40548 Prevnar 13 Intramuscular Suspension 15:08:26 CDT 10/08 CPT-G0439 [facility] Annual Wellness Exam 14:29:22 CDT CPT-40125 Venipuncture Draw Fee 13:15:35 CDT CPT-58239 Magnesium - LAB USE ONLY 11:14:20 LOAN ORIGINATOR CPT-77643 Lipid - LAB USE ONLY 11:14:20 LOAN ORIGINATOR CPT-86630 HGBA1C - LAB USE ONLY 11:14:20 LOAN ORIGINATOR CPT-73446 CMP - LAB USE ONLY 11:14:19 LOAN ORIGINATOR CPT-32471 CBC - LAB USE ONLY 11:14:19 LOAN ORIGINATOR CPT-20054 Venipuncture Draw Fee 11:14:18 LOAN ORIGINATOR CPT-01436 First Vx - Ix admin for Medicare patients 16:46:52 CDT CPT-45460 Fluzone Preservative Free Intramuscular Suspension 16:46 :51 CDT CPT-36053 CBC - LAB USE ONLY 17:14:46 CDT CPT-61985 HGBA1C - LAB USE ONLY 17:14:46 CDT CPT-35590 Venipuncture Draw Fee 17:14:46 CDT CPT-G0438 Initial Annual Wellness Exam 14:13:04 CDT CPT-61946 Breathing Tx 10:06:54 LOAN ORIGINATOR CPT-74990 Postop F/U Visit 10:02:45 CDT CPT-LR Lesion Removal 09:02:56 CDT CPT-JTINJ Asp/Joint Injection 15:51:27 LOAN ORIGINATOR CPT-OV Office Visit 15:52:02 LOAN ORIGINATOR CPT-OV Office Visit 15:45:11 CDT CPT-000 Give Zostavax 14:09:06 CDT CPT-12461 Administration single or combination vaccine inc oral 15 :19:04 CDT CPT-13398 Zoster Vaccine (Zostavax) 15:19:04 CDT CPT-31858 Administration single or combination vaccine inc oral 20 :51:03 CDT CPT-78498 Influenza split virus > age 3 20:51:03 CDT CPT-60638 No Charge Offi Visit 14:52:03 CDT CPT-OV Office Visit 14:57:43 CDT CPT-OV Office Visit 15:22:32 CDT CPT-93114 Administration single or combination vaccine inc oral 11 :33:15 CDT CPT-92199 Influenza split virus > age 3 11:33:15 CDT
--- OUTSIDE RECORDS SUMMARY | 2018-04-25 15:01 | XMS REPORT | Clinical Summary ---
Author Author Admin, SACHI Organization [employer] Address Unknown Phone Unavailable Allergies, Adverse [...] not further specified 369.20 Active [facility] [employer] Moderate or severe vision impairment, both eyes, [...] hours if needed for cough/congestion ALBUTEROL SULFATE 10751317370 No Longer Active Ambika Aden APRN Active ZITHROMAX 250 MG TAB 2 po today, then 1 po q days 2-5 AZITHROMYCIN 79929969744 No Longer Active Miranda Suresh APRN Active METFORMIN HCL 1000 MG TABS 1 tablet by mouth twice daily METFORMIN HCL 89433170607 Active Tu Landeros MD Active FLONASE 50 MCG/ACT SUSP 1 spray each nostril twice daily until bottle empty FLUTICASONE PROPIONATE 69553027489 No Longer Active Tu Landeros MD Active COLACE 100 MG CAP 1 po BID PRN Constipation DOCUSATE SODIUM 18371122563 Active Tu Landeros MD Active SIMVASTATIN 40 MG TABS 0.5 tab daily at bedtime SIMVASTATIN 18076933711 Active Tu Landeros MD Active TRUERESULT BLOOD GLUCOSE W/DEVICE KIT test blood sugar twice daily dx 250.00 BLOOD GLUCOSE MONITORING SUPPL 54083751200 No Longer Active Tu Landeros MD Active TRUEDRAW LANCING DEVICE MISC Test twice a day dx 250.0 LANCET DEVICES 68228737654 No Longer Active Tu Landeros MD Active PREDNISONE 20 MG TAB 2 tablets once daily for 2 days, then 1 tablet once daily for 2 days PREDNISONE 11320585515 No Longer Active Tu Landeros MD Active DICLOFENAC SODIUM 50 MG TBEC 1 tablet by mouth three times a day as needed DICLOFENAC SODIUM 67313696430 No Longer Active Fab Morales DO Active TRUEDRAW LANCING DEVICE MISC test blood sugar twice daily dx: 250.00 LANCET DEVICES 73689196148 Active Tu Landeros MD Active TRUETEST TEST INVITR STRP test blood sugar twice daily. DX 250.0 GLUCOSE BLOOD 91130224990 Active Tu Landeros MD Active EMBRACE BLOOD GLUCOSE TEST STRP test blood sugar twice daily DX 250.0 2014 GLUCOSE BLOOD 53084173651 No Longer Active Tu Landeros MD Active TRUETEST TEST STRP test blood sugar three times daily dx: 250.00 GLUCOSE BLOOD 42300406090 No Longer Active Suzebianca Nicole RMMahendra Active TRUERESULT BLOOD GLUCOSE W/DEVICE KIT use to test blood sugar tid dx: 250.00 BLOOD GLUCOSE MONITORING SUPPL 23600768397 No Longer Active Suze Corey RMA Active ALIGN 4 MG CAPS 1 tid PROBIOTIC PRODUCT 22075498783 No Longer Active Shaun Sy MD Active CIPRO 500 MG TABS 1 bid x 14 days start 09-28-13 CIPROFLOXACIN HCL 46585988144 No Longer Active Shaun Sy MD Active TRAMADOL HCL 50 MG TABS 1-2 tablets every 6 hours as needed for pain TRAMADOL HCL 23821884466 Active Tu Landeros MD Active HYDROCODONE-ACETAMINOPHEN 5-325 MG TABS 1 tab by mouth every 6 hours as needed for pain HYDROCODONE-ACETAMINOPHEN 05365320480 No Longer Active Tu Landeros MD Active OMEPRAZOLE 20 MG CPDR 1 po q a.m. OMEPRAZOLE 06165992042 Active Tu Landeros MD Active GABAPENTIN 100 MG CAPS 1 po bid GABAPENTIN 78682371812 No Longer Active Tu Landeros MD Active B-12 100 MCG TABS Take one by mouth daily CYANOCOBALAMIN 02847662747 No Longer Active Tu Landeros MD Active GABAPENTIN 100 MG CAPS by mouth twice a day GABAPENTIN 41063878285 Active Tu Landeros MD Active BACTRIM DS 800-160 MG TABS 1 bid x 14 day start 8-14 SULFAMETHOXAZOLE-TRIMETHOPRIM 89105074234 No Longer Active Tu Landeros MD Active CARVEDILOL 12.5 MG TABS 1 po BID CARVEDILOL 43017531450 Active Tu Landeros MD Active SUPER B COMPLEX/VITAMIN C TABS 1 qd B COMPLEX-C 67371774586 Active JASPREET Perez Active TRILIPIX 135 MG CPDR 1 q hs CHOLINE FENOFIBRATE 77927993836 Active Tu Landeros MD Active FENOFIBRATE 145 MG TABS 1 po qd FENOFIBRATE 59329614159 No Longer Active JASPREET Perez Active OMEPRAZOLE 20 MG TBEC 1 PO 30 MIN BEFORE 1ST MEAL OMEPRAZOLE 62369574638 No Longer Active JASPREET Perez Active SIMVASTATIN 40 MG TABS Take one by mouth daily SIMVASTATIN 98421602906 No Longer Active JASPREET Perez Active VENLAFAXINE HCL 37.5 MG TABS 1 bid VENLAFAXINE HCL 34333371530 Active Tu Landeros MD Active VENLAFAXINE HCL 75 MG TABS 1 po BID VENLAFAXINE HCL 73503357313 No Longer Active JASPREET Perez Active CIPRO 500 MG TAB 1 tablet by mouth twice daily CIPROFLOXACIN HCL 89099199671 No Longer Active Tu Landeros MD Active VENLAFAXINE HCL 37.5 MG TABS 1 po BID VENLAFAXINE HCL 31119070150 No Longer Active Suze Corey RMA Active LAMISIL 250 MG TAB 1 po qd TERBINAFINE HCL 91316580310 No Longer Active Tu Landeros MD Active LORTAB 5 5-500 MG TABS 1/2 to 1 tablet by mouth every 4 hours as needed for pain HYDROCODONE-ACETAMINOPHEN 96894535918 No Longer Active Tu Landeros MD Active ENALAPRIL MALEATE 20 MG TABS 1.5 po qd ENALAPRIL MALEATE 85917814255 Active Tu Landeros MD Active HYDROCODONE-ACETAMINOPHEN 5-500 MG TABS take one po Q 4-6 hours prn HYDROCODONE-ACETAMINOPHEN 58236929984 No Longer Active Tu Landeros MD Active BACTRIM DS 800-160 MG TABS 1 po BID x 7 days SULFAMETHOXAZOLE-TRIMETHOPRIM 33345026859 No Longer Active Tu Landeros MD Active VENLAFAXINE HCL 75 MG TABS 1 po BID VENLAFAXINE HCL 55361189971 No Longer Active Elvira Cervantes MD PhD Active TRAMADOL HCL 50 MG TABS 1 tablets every 6 hours as needed for pain TRAMADOL HCL 70675746708 No Longer Active Tu Landeros MD Active ACCU-CHEK FASTCLIX LANCETS MISC Use to check bloodsugar three times daily as needed LANCETS 19668563136 No Longer Active Tu Landeros MD Active ACCU-CHEK KEYONA PLUS STRP Use for testing bloodsugars three times daily as needed GLUCOSE BLOOD 19608172763 No Longer Active Tu Landeros MD Active ACCU-CHEK KEYONA PLUS W/DEVICE KIT Use for testing bloodsugars three times daily as needed BLOOD GLUCOSE MONITORING SUPPL 95073973414 No Longer Active Tu Landeros MD Active SPIRONOLACTONE 25 MG TAB 0.5 tablet by mouth daily SPIRONOLACTONE 22381514061 No Longer Active Tu Landeros MD Active ALPRAZOLAM 0.5 MG TABS 1 tab every 6hrs as needed ALPRAZOLAM 59334703147 No Longer Active Tu Landeros MD Active AUGMENTIN 875-125 MG TAB 1 tab by mouth twice daily with food AMOXICILLIN-POT CLAVULANATE 40470341978 No Longer Active Tu Landeros MD Active PREDNISONE 20 MG TAB 2 tabs daily for 3 days, 1 tab daily for 3 days, 1/2 tab daily for 2 days PREDNISONE 84122546599 No Longer Active Tu Landeros MD Active XANAX 0.5 MG TABS 1 tablet every 6 hrs prn ALPRAZOLAM 38019595919 No Longer Active Tu Landeros MD Active PREDNISONE 20 MG TAB 2 tabs daily for 3 days, 1 tab daily for 3 days, 1/2 tab daily for 2 days PREDNISONE 58950780603 No Longer Active Tu Landeros MD Active TRIAMCINOLONE ACETONIDE 0.1 % OINT Apply to affected areas TID for up to 2 weeks TRIAMCINOLONE ACETONIDE 95824803335 No Longer Active Tu Landeros MD Active LORTAB 5 5-500 MG TABS 1/2 to 1 tablet by mouth every 4 hours as needed for pain HYDROCODONE-ACETAMINOPHEN 40847882918 No Longer Active Tu Landeros MD Active MULTIVITAMINS TABS Take one by mouth daily MULTIPLE VITAMIN 97532897973 No Longer Active Tu Landeros MD Active MELATONIN 5 MG TABS Take one by mouth daily MELATONIN 95282813220 No Longer Active Tu Landeros MD Active SOMA 350 MG TAB 1 po q 6 hours prn spasm CARISOPRODOL 44041918721 No Longer Active Tu Landeros MD Active MECLIZINE HCL 25 MG CHEW TAB 1 four times a day as needed for dizziness 08/05 MECLIZINE HCL 22800777794 No Longer Active Fab Morales DO Active ANGEL BREEZE 2 TEST DISK test tid prn GLUCOSE BLOOD 86101007952 No Longer Active Negra Scott RN Active REGLAN 10 MG TAB 1 po TID PRN [place] METOCLOPRAMIDE HCL 71007873438 No Longer Active Tu Landeros MD Active METFORMIN HCL 500 MG TABS 1 PO BID METFORMIN HCL 45526729002 No Longer Active Tu Landeros MD Active AMBIEN 10 MG TAB 1 tab by mouth at bedtime as needed for sleep ZOLPIDEM TARTRATE 23109331977 No Longer Active Tu Landeros MD Active FLUOXETINE HCL 40 MG CAPS 1 po q day FLUOXETINE HCL 47017898994 No Longer Active Mayra Terry Active FISH OIL 1000 MG CAPS Take one by mouth daily OMEGA-3 FATTY ACIDS 46244349717 Active Tu Landeros MD Active GLUCOSAMINE 500 MG TABS Take 2 tab po qd GLUCOSAMINE 58879303930 Active Tu Landeros MD Active TRILIPIX 135 MG CPDR 1 po qd CHOLINE FENOFIBRATE 92056614510 No Longer Active Tu Landeros MD Active ASPIRIN 81 MG CHEW TAB 1 tablet by mouth daily ASPIRIN 24556726005 Active Tu Landeros MD Active FUROSEMIDE 40 MG TAB 1 tablet by mouth daily FUROSEMIDE 63419600067 Active Tu Landeros MD Active REQUIP 2 MG TABS Take one tablet at bedtime prn ROPINIROLE HCL 62310206155 Active Tu Landeros MD Active KLOR-CON 10 10 MEQ CR-TABS TAKE 2 TABS DAILY POTASSIUM CHLORIDE 13267950717 Active Tu Landeros MD Active AMBIEN 10 MG TAB 1 tab by mouth at bedtime as needed for sleep AMBIEN 10 MG TAB 068292 ZOLPIDEM TARTRATE Inactive METFORMIN HCL 500 MG TABS 1 PO BID METFORMIN HCL 500 MG TABS 879083 METFORMIN HCL Inactive REGLAN 10 MG TAB 1 po TID PRN Nausea REGLAN 10 MG TAB 680755 METOCLOPRAMIDE HCL Inactive MECLIZINE HCL 25 MG CHEW TAB 1 four times a day as needed for dizziness 08/05 MECLIZINE HCL 25 MG CHEW TAB 217901 MECLIZINE HCL Inactive SOMA 350 MG TAB 1 po q 6 hours prn spasm SOMA 350 MG TAB 133697 CARISOPRODOL Inactive MELATONIN 5 MG TABS Take one by mouth daily MELATONIN 5 MG TABS 938973 MELATONIN Inactive MULTIVITAMINS TABS Take one by mouth daily MULTIVITAMINS TABS MULTIPLE VITAMIN Inactive LORTAB 5 5-500 MG TABS 1/2 to 1 tablet by mouth every 4 hours as needed for pain LORTAB 5 5-500 MG TABS HYDROCODONE- ACETAMINOPHEN Inactive XANAX 0.5 MG TABS 1 tablet every 6 hrs prn XANAX 0.5 MG TABS 201638 ALPRAZOLAM Inactive AUGMENTIN 875-125 MG TAB 1 tab by mouth twice daily with food AUGMENTIN 875-125 MG TAB 798521 AMOXICILLIN-POT CLAVULANATE Inactive ALPRAZOLAM 0.5 MG TABS 1 tab every 6hrs as needed ALPRAZOLAM 0.5 MG TABS 652936 ALPRAZOLAM Inactive SPIRONOLACTONE 25 MG TAB 0.5 tablet by mouth daily SPIRONOLACTONE 25 MG TAB 481984 SPIRONOLACTONE Inactive ACCU-CHEK KEYONA PLUS W/DEVICE KIT Use for testing bloodsugars three times daily as needed ACCU-CHEK KEYONA PLUS W/DEVICE KIT BLOOD GLUCOSE MONITORING SUPPL Inactive ACCU-CHEK KEYONA PLUS STRP Use for testing bloodsugars three times daily as needed ACCU-CHEK KEYONA PLUS STRP GLUCOSE BLOOD Inactive ACCU-CHEK FASTCLIX LANCETS MISC Use to check bloodsugar three times daily as needed ACCU-CHEK FASTCLIX LANCETS MISC 62471765672 LANCETS Inactive TRAMADOL HCL 50 MG TABS 1 tablets every 6 hours as needed for pain TRAMADOL HCL 50 MG TABS 839917 TRAMADOL HCL Inactive VENLAFAXINE HCL 75 MG TABS 1 po BID VENLAFAXINE HCL 75 MG TABS 145247 VENLAFAXINE HCL Inactive HYDROCODONE-ACETAMINOPHEN 5-500 MG TABS take one po Q 4-6 hours prn HYDROCODONE-ACETAMINOPHEN 5-500 MG TABS HYDROCODONE- ACETAMINOPHEN Inactive LORTAB 5 5-500 MG TABS 1/2 to 1 tablet by mouth every 4 hours as needed for pain LORTAB 5 5-500 MG TABS HYDROCODONE- ACETAMINOPHEN Inactive LAMISIL 250 MG TAB 1 po qd LAMISIL 250 MG TAB 965966 TERBINAFINE HCL Inactive VENLAFAXINE HCL 37.5 MG TABS 1 po BID VENLAFAXINE HCL 37.5 MG TABS 178013 VENLAFAXINE HCL Inactive CIPRO 500 MG TAB 1 tablet by mouth twice daily CIPRO 500 MG TAB 933646 CIPROFLOXACIN HCL Inactive VENLAFAXINE HCL 75 MG TABS 1 po BID VENLAFAXINE HCL 75 MG TABS 342969 VENLAFAXINE HCL Inactive SIMVASTATIN 40 MG TABS Take one by mouth daily SIMVASTATIN 40 MG TABS 559178 SIMVASTATIN Inactive OMEPRAZOLE 20 MG TBEC 1 PO 30 MIN BEFORE 1ST MEAL OMEPRAZOLE 20 MG TBEC 483368 OMEPRAZOLE Inactive FENOFIBRATE 145 MG TABS 1 po qd FENOFIBRATE 145 MG TABS 290971 FENOFIBRATE Inactive BACTRIM DS 800-160 MG TABS 1 bid x 14 day start 09-28-13 BACTRIM DS 800-160 MG TABS 747672 SULFAMETHOXAZOLE-TRIMETHOPRIM Inactive B-12 100 MCG TABS Take one by mouth daily B-12 100 MCG TABS CYANOCOBALAMIN Inactive GABAPENTIN 100 MG CAPS 1 po bid GABAPENTIN 100 MG CAPS 673952 GABAPENTIN Inactive HYDROCODONE-ACETAMINOPHEN 5-325 MG TABS 1 tab by mouth every 6 hours as needed for pain HYDROCODONE-ACETAMINOPHEN 5-325 MG TABS 957995 HYDROCODONE-ACETAMINOPHEN Inactive CIPRO 500 MG TABS 1 bid x 14 days start 09-28-13 CIPRO 500 MG TABS 907616 CIPROFLOXACIN HCL Inactive ALIGN 4 MG CAPS [...] as needed DICLOFENAC SODIUM 50 MG TBEC 862824 DICLOFENAC SODIUM Inactive PREDNISONE 20 MG TAB 2 tablets once daily for 2 days, then 1 tablet once daily for 2 days PREDNISONE 20 MG TAB 929027 PREDNISONE Inactive TRUEDRAW LANCING DEVICE MISC Test twice a day dx 250.0 TRUEDRAW LANCING DEVICE MISC LANCET DEVICES Inactive TRUERESULT BLOOD GLUCOSE W/DEVICE KIT test blood sugar twice daily dx 250.00 TRUERESULT BLOOD GLUCOSE W/DEVICE KIT BLOOD GLUCOSE MONITORING SUPPL Inactive FLONASE 50 MCG/ACT SUSP 1 spray each nostril twice daily until bottle empty FLONASE 50 MCG/ACT SUSP 030073 FLUTICASONE PROPIONATE Inactive VENTOLIN HFA 108 (90 BASE) MCG/ACT AERS 1-2 puffs every 4 hours if needed for cough/congestion VENTOLIN HFA 108 (90 BASE) MCG/ACT AERS ALBUTEROL SULFATE Inactive TRIAMCINOLONE ACETONIDE 0.1 % OINT Apply to affected areas TID for up to 2 weeks TRIAMCINOLONE ACETONIDE 0.1 % OINT 8758200 TRIAMCINOLONE ACETONIDE Inactive PREDNISONE 20 MG TAB 2 tabs daily for 3 days, 1 tab daily for 3 days, 1/2 tab daily for 2 days PREDNISONE 20 MG TAB 711788 PREDNISONE Inactive PREDNISONE 20 MG TAB 2 tabs daily for 3 days, 1 tab daily for 3 days, 1/2 tab daily for 2 days PREDNISONE 20 MG TAB 653897 PREDNISONE Inactive BACTRIM DS 800-160 MG TABS 1 po BID x 7 days BACTRIM DS 800-160 MG TABS 065244 SULFAMETHOXAZOLE-TRIMETHOPRIM Inactive ZITHROMAX 250 MG TAB 2 po today, then 1 po q days 2-5 ZITHROMAX 250 MG TAB 9151495 AZITHROMYCIN Inactive Advance Directives Directive Description Start Date DISCUSSED WITH PATIENT -- NO DECISION MADE Immunizations Vaccine Administration Date Value Standard Description Seasonal influenza vaccine, injectable, containing preservative, for > 3 years old (Afluria, FluLaval, Fluzone, Fluvirin, Fluarix, Agriflu(>=18 yo)) Fluzone (>3 yrs.) [[id number]] Influenza, seasonal, injectable influenza immunization (Flu Vax) has been administered 02/22/2012 influenza virus vaccine, unspecified formulation Seasonal influenza vaccine, injectable, containing preservative, for > 3 years old (Afluria, FluLaval, Fluzone, Fluvirin, Fluarix, Agriflu(>=18 yo)) Fluzone (>3 yrs.) [[id number]] Influenza, seasonal, injectable Vital Signs Date Name [...] MICROALBUMIN - Chemistry sodium, serum 142 mmol/L 149-152 0782/10/08 potassium, serum 4.5 mmol/L 3.5-5.2 chloride, serum [...] 0.30 mg/dL 0.00-1.00 cholesterol, serum 111 mg/dL 712-116 8020/07/28 triglyceride, serum, fasting 177 mg/dL 30-200 HDL [...] Panel - Chemistry cholesterol, serum 124 mg/dL 288-435 9103/01/12 triglyceride, serum, fasting 135 mg/dL 30-200 HDL cholesterol, serum 41 mg/dL 32-96 LDL cholesterol, serum 56 mg/dL 0-130 sodium, serum 140 mmol/L 861-566 4184/01/12 carbon dioxide, venous blood 27.7 mmol/L 21.0-32.0 potassium, serum 4.5 mmol/L 3.5-5.2 chloride, serum 104 mmol/L 98-107 blood glucose 139 mg/dL 65-110 urea nitrogen, blood 16 mg/dL 7-18 alanine aminotransferase (SGPT), serum 32 U/L 12-78 aspartate aminotransferase (SGOT), serum 25 U/L 15-37 calcium, serum 9.1 mg/dL 8.5-10.1 bilirubin, serum, total 0.50 mg/dL 0.00-1.00 Encounters Code Encounter Date Provider Facility CPT-42865 Level 4 Est. Patient 14:06:04 DIRECTOR INBOUND SALES Tu Landeros MD [facility] CPT-98575 Level 3 Est. Patient 14:05:18 DIRECTOR INBOUND SALES Tu Lanedros MD [facility] CPT-30880 Level 3 Est. Patient 10:06:54 DIRECTOR [employer]OUND SALES Miranda Suresh APRN [facility] CPT-08249 Level 4 Est. Patient 13:50:18 DIRECTOR INBOUND SALES Tu Landeros MD [facility] CPT-55715 Level 3 Est. Patient 10:30:04 CDT Tu Landeros MD [facility] CPT-04535 Level 4 Est. Patient 11:03:38 CDT Tu Landeros MD [facility] CPT-22586 Level 3 Est. Patient 10:20:44 CDT Fab Morales DO [facility] CPT-35844 Level 4 Est. Patient 14:38:57 CDT Tu Landeros MD [facility] CPT-79593 Level 4 Est. Patient 14:27:39 DIRECTOR [employer] SALES Tu Landeros MD [facility] CPT-83255 Level 4 Est. Patient 09:45:25 CDT Tu Landeros MD [facility] CPT-11587 Level 4 Est. Patient 09:05:20 DIRECTOR INBOUND SALES Tu Landeros MD [facility] CPT-12515 Level 4 Est. Patient 14:09:06 CDT Tu Landeros MD [facility] CPT-89340 Level 3 Est. Patient 13:36:54 CDT Tu Landeros MD [facility] CPT-94274 Level 3 Est. Patient 08:59:14 CDT Tu Landeros MD [facility] CPT-16966 Level 3 Est. Patient 13:48:35 CDT Fab Morales DO [facility] CPT-40483 Level 4 Est. Patient 10:05:48 CDT Tu Landeros MD [facility] CPT-06750 Level 3 Est. Patient 13:38:42 CDT Marek BANKS [facility] CPT-03065 Level 5 Est. Patient 08:08:39 CDT Jerrica FRANCIS [facility] CPT-92455 Level 4 Est. Patient 14:23:38 CDT Tu Landeros MD [facility] CPT-23168 Level 3 Est. Patient 11:44:04 CDT Tu Landeros MD [facility] CPT-58581 Level 3 Est. Patient 11:03:20 DIRECTOR INBOUND SALES Tu Landeros MD [facility] CPT-61449 Level 3 Est. Patient 11:03:14 DIRECTOR INBOUND SALES Tu Landeros MD [facility] CPT-85412 Level 3 Est. Patient 12:42:49 CDT Tu Landeros MD [facility] CPT-15941 Level 3 Est. Patient 11:52:06 CDT Tu Landeros MD [facility] CPT-43539 Level 3 Est. Patient 13:58:11 CDT Tu Landeros MD [facility] CPT-49435 Level 3 Est. Patient 17:50:07 CDT Fab Morales DO [facility] CPT-00760 Level 3 Est. Patient 12:06:29 CDT Elvira Cervantes MD, PhD [facility] CPT-80694 Level 3 Est. Patient 15:50:32 CDT Tu Landeros MD [facility] CPT-60048 Level 4 Est. Patient 16:08:29 CDT Tu Landeros MD [facility] CPT-49030 Level 3 Est. Patient 16:04:19 CDT Tu Landeros MD [facility] CPT-70437 Level 3 Est. Patient 11:22:30 DIRECTOR INBOUND SALES Tu Landeros MD [facility] CPT-61167 Level 4 Est. Patient 16:24:02 DIRECTOR INBOUND SALES Tu Landeros MD [facility] CPT-56866 Level 3 Est. Patient 17:21:23 DIRECTOR [employer] SALES Tu Landeros MD [facility] Procedures Code Procedure Name Date Entry Date Standard Description CPT-G0438 Initial Annual Wellness Exam 14:13:04 CDT CPT-13616 Breathing Tx 10:06:54 [employer] CPT-87690 Postop F/U Visit 10:02:45 CDT CPT-LR Lesion Removal 09:02:56 CDT CPT-JTINJ Asp/Joint Injection 15:51:27 DIRECT[employer] CPT-OV Office Visit 15:52:02 DIRECTOR [employer] SAL[employer] CPT-OV Office Visit 15:45:11 CDT CPT-000 Give Zostavax 14:09:06 CDT CPT-41974 Administration single or combination vaccine inc oral 15 :19:04 CDT CPT-35133 Zoster Vaccine (Zostavax) 15:19:04 CDT CPT-02619 Administration single or combination vaccine inc oral 20 :51:03 CDT CPT-14453 Influenza split virus > age 3 20:51:03 CDT CPT-07997 No Charge Offi Visit 14:52:03 CDT CPT-OV Office Visit 14:57:43 CDT CPT-OV Office Visit 15:22:32 CDT CPT-17346 Administration single or combination vaccine inc oral 11 :33:15 CDT CPT-98064 Influenza split virus > age 3 11:33:15 CDT
--- OUTSIDE RECORDS SUMMARY | 2018-04-25 15:02 | XMS REPORT | Clinical Summary ---
Author Author Admin, SACHI Organization [employer] Address Unknown Phone Unavailable Allergies, Adverse Reactions, [...] MG TABS 1 po BID VENLAFAXINE HCL 54486392089 Active Tu Landeros MD Active GABAPENTIN 100 MG CAPS 1 po BID GABAPENTIN 27117164971 Active José Luis Becerra MD Active REQUIP 2 MG TABS Take one tablet at bedtime prn ROPINIROLE HCL 65490231271 No Longer Active Tu Landeros MD Active VENTOLIN HFA 108 (90 BASE) MCG/ACT AERS 1-2 puffs every 4 hours if needed for cough/congestion ALBUTEROL SULFATE 62694748257 No Longer Active Ambika Aden APRN Active ZITHROMAX 250 MG TAB 2 po today, then 1 po q days 2-5 AZITHROMYCIN 27932290803 No Longer Active Miranda Suresh APRN Active METFORMIN HCL 1000 MG TABS 1 tablet by mouth twice daily METFORMIN HCL 68248167439 Active Tu Landeros MD Active FLONASE 50 MCG/ACT SUSP 1 spray each nostril twice daily until bottle empty FLUTICASONE PROPIONATE 87877690278 No Longer Active Tu Landeros MD Active COLACE 100 MG CAP 1 po BID PRN Constipation DOCUSATE SODIUM 46324498296 Active Tu Landeros MD Active SIMVASTATIN 40 MG TABS 0.5 tab daily at bedtime SIMVASTATIN 75548297192 Active Tu Landeros MD Active TRUERESULT BLOOD GLUCOSE W/DEVICE KIT test blood sugar twice daily dx 250.00 BLOOD GLUCOSE MONITORING SUPPL 44268444171 No Longer Active Tu Landeros MD Active TRUEDRAW LANCING DEVICE MISC Test twice a day dx 250.0 LANCET DEVICES 52724320483 No Longer Active Tu Landeros MD Active PREDNISONE 20 MG TAB 2 tablets once daily for 2 days, then 1 tablet once daily for 2 days PREDNISONE 21740683863 No Longer Active Tu Landeros MD Active DICLOFENAC SODIUM 50 MG TBEC 1 tablet by mouth three times a day as needed DICLOFENAC SODIUM 25734214078 No Longer Active Fab Morales DO Active TRUEDRAW LANCING DEVICE MISC test blood sugar twice daily dx: 250.00 LANCET DEVICES 34694197825 Active Tu Landeros MD Active TRUETEST TEST INVITR STRP test blood sugar twice daily. DX 250.0 GLUCOSE BLOOD 89638060246 Active Tu Landeros MD Active EMBRACE BLOOD GLUCOSE TEST STRP test blood sugar twice daily DX 250.0 2014 GLUCOSE BLOOD 42004358996 No Longer Active Tu Landeros MD Active TRUETEST TEST STRP test blood sugar three times daily dx: 250.00 GLUCOSE BLOOD 00617327629 No Longer Active Suze Corey VOGEL Active TRUERESULT BLOOD GLUCOSE W/DEVICE KIT use to test blood sugar tid dx: 250.00 BLOOD GLUCOSE MONITORING SUPPL 77033766537 No Longer Active Suze Corey RMA Active ALIGN 4 MG CAPS 1 tid PROBIOTIC PRODUCT 90231663528 No Longer Active Shaun Sy MD Active CIPRO 500 MG TABS 1 bid x 14 days start 09-28-13 CIPROFLOXACIN HCL 94918767127 No Longer Active Shaun Sy MD Active TRAMADOL HCL 50 MG TABS 1-2 tablets every 6 hours as needed for pain TRAMADOL HCL 34063526967 Active José Luis Becerra MD Active HYDROCODONE-ACETAMINOPHEN 5-325 MG TABS 1 tab by mouth every 6 hours as needed for pain HYDROCODONE-ACETAMINOPHEN 59850842380 No Longer Active Tu Landeros MD Active OMEPRAZOLE 20 MG CPDR 1 po q a.m. OMEPRAZOLE 54411738758 Active Tu Landeros MD Active GABAPENTIN 100 MG CAPS 1 po bid GABAPENTIN 24279360073 No Longer Active Tu Landeros MD Active B-12 100 MCG TABS Take one by mouth daily CYANOCOBALAMIN 05806599617 No Longer Active Tu Landeros MD Active BACTRIM DS 800-160 MG TABS 1 bid x 14 day start 09-28-13 SULFAMETHOXAZOLE-TRIMETHOPRIM 70252139891 No Longer Active Tu Landeros MD Active CARVEDILOL 12.5 MG TABS 1 po BID CARVEDILOL 72142385184 Active Tu Landeros MD Active SUPER B COMPLEX/VITAMIN C TABS 1 qd B COMPLEX-C 93111424980 Active JASPREET Perez Active TRILIPIX 135 MG CPDR 1 q hs CHOLINE FENOFIBRATE 41423306077 Active Tu Landeros MD Active FENOFIBRATE 145 MG TABS 1 po qd FENOFIBRATE 38475388725 No Longer Active JASPREET Perez Active OMEPRAZOLE 20 MG TBEC 1 PO 30 MIN BEFORE 1ST MEAL OMEPRAZOLE 64170479364 No Longer Active JASPREET Perez Active SIMVASTATIN 40 MG TABS Take one by mouth daily SIMVASTATIN 60190837991 No Longer Active JASPREET Perez Active VENLAFAXINE HCL 75 MG TABS 1 po BID VENLAFAXINE HCL 71396018433 No Longer Active Montrose Norma, RMA Active CIPRO 500 MG TAB 1 tablet by mouth twice daily CIPROFLOXACIN HCL 71075875619 No Longer Active Tu Landeros MD Active VENLAFAXINE HCL 37.5 MG TABS 1 po BID VENLAFAXINE HCL 18824713527 No Longer Active Suze Nicole RMA Active LAMISIL 250 MG TAB 1 po qd TERBINAFINE HCL 80642045946 No Longer Active Tu Landeros MD Active LORTAB 5 5-500 MG TABS 1/2 to 1 tablet by mouth every 4 hours as needed for pain HYDROCODONE-ACETAMINOPHEN 07817012379 No Longer Active Tu Landeros MD Active ENALAPRIL MALEATE 20 MG TABS 1.5 po qd ENALAPRIL MALEATE 73355586942 Active Tu Landeros MD Active HYDROCODONE-ACETAMINOPHEN 5-500 MG TABS take one po Q 4-6 hours prn HYDROCODONE-ACETAMINOPHEN 18920062179 No Longer Active Tu Landeros MD Active BACTRIM DS 800-160 MG TABS 1 po BID x 7 days SULFAMETHOXAZOLE-TRIMETHOPRIM 95433491888 No Longer Active Tu Landeros MD Active VENLAFAXINE HCL 75 MG TABS 1 po BID VENLAFAXINE HCL 92297882530 No Longer Active Elvira Cervantes MD PhD Active TRAMADOL HCL 50 MG TABS 1 tablets every 6 hours as needed for pain TRAMADOL HCL 62544221670 No Longer Active Tu Landeros MD Active ACCU-CHEK FASTCLIX LANCETS MISC Use to check bloodsugar three times daily as needed LANCETS 84533592701 No Longer Active Tu Landeros MD Active ACCU-CHEK KEYONA PLUS STRP Use for testing bloodsugars three times daily as needed GLUCOSE BLOOD 56107347940 No Longer Active Tu Landeros MD Active ACCU-CHEK KEYONA PLUS W/DEVICE KIT Use for testing bloodsugars three times daily as needed BLOOD GLUCOSE MONITORING SUPPL 87109144740 No Longer Active Tu Landeros MD Active SPIRONOLACTONE 25 MG TAB 0.5 tablet by mouth daily SPIRONOLACTONE 23954116111 No Longer Active Tu Landeros MD Active ALPRAZOLAM 0.5 MG TABS 1 tab every 6hrs as needed ALPRAZOLAM 76196334281 No Longer Active Tu Landeros MD Active AUGMENTIN 875-125 MG TAB 1 tab by mouth twice daily with food AMOXICILLIN-POT CLAVULANATE 24182311890 No Longer Active Tu Landeros MD Active PREDNISONE 20 MG TAB 2 tabs daily for 3 days, 1 tab daily for 3 days, 1/2 tab daily for 2 days PREDNISONE 57813211819 No Longer Active Tu Landeros MD Active XANAX 0.5 MG TABS 1 tablet every 6 hrs prn ALPRAZOLAM 13251173590 No Longer Active Tu Landeros MD Active PREDNISONE 20 MG TAB 2 tabs daily for 3 days, 1 tab daily for 3 days, 1/2 tab daily for 2 days PREDNISONE 18339289874 No Longer Active Tu Landeros MD Active TRIAMCINOLONE ACETONIDE 0.1 % OINT Apply to affected areas TID for up to 2 weeks TRIAMCINOLONE ACETONIDE 18256606526 No Longer Active Tu Landeros MD Active LORTAB 5 5-500 MG TABS 1/2 to 1 tablet by mouth every 4 hours as needed for pain HYDROCODONE-ACETAMINOPHEN 47895150526 No Longer Active Tu Landeros MD Active MULTIVITAMINS TABS Take one by mouth daily MULTIPLE VITAMIN 98075410717 No Longer Active Tu Landeros MD Active MELATONIN 5 MG TABS Take one by mouth daily MELATONIN 17120991393 No Longer Active Tu Landeros MD Active SOMA 350 MG TAB 1 po q 6 hours prn spasm CARISOPRODOL 74101048239 No Longer Active Tu Landeros MD Active MECLIZINE HCL 25 MG CHEW TAB 1 four times a day as needed for dizziness 08/05 MECLIZINE HCL 45805888696 No Longer Active Fab Morales DO Active ANGEL BREEZE 2 TEST DISK test tid prn GLUCOSE BLOOD 62288892455 No Longer Active Negra Scott RN Active REGLAN 10 MG TAB 1 po TID PRN [place] METOCLOPRAMIDE HCL 41340250639 No Longer Active Tu Landeros MD Active METFORMIN HCL 500 MG TABS 1 PO BID METFORMIN HCL 72907824391 No Longer Active Tu Landeros MD Active AMBIEN 10 MG TAB 1 tab by mouth at bedtime as needed for sleep ZOLPIDEM TARTRATE 70707463575 No Longer Active Tu Landeros MD Active FLUOXETINE HCL 40 MG CAPS 1 po q day FLUOXETINE HCL 28184856806 No Longer Active Mayra Fairplay Active FISH OIL 1000 MG CAPS Take one by mouth daily OMEGA-3 FATTY ACIDS 68914223561 Active Tu Landeros MD Active GLUCOSAMINE 500 MG TABS Take 2 tab po qd GLUCOSAMINE 87778290218 Active Tu Landeros MD Active TRILIPIX 135 MG CPDR 1 po qd CHOLINE FENOFIBRATE 71396005476 No Longer Active Tu Landeros MD Active ASPIRIN 81 MG CHEW TAB 1 tablet by mouth daily ASPIRIN 81169978039 Active Tu Landeros MD Active FUROSEMIDE 40 MG TAB 1 tablet by mouth daily FUROSEMIDE 23689397584 Active Tu Landeros MD Active KLOR-CON 10 10 MEQ CR-TABS TAKE 2 TABS DAILY POTASSIUM CHLORIDE 79807088021 Active Tu Landeros MD Active AMBIEN 10 MG TAB 1 tab by mouth at bedtime as needed for sleep AMBIEN 10 MG TAB 070223 ZOLPIDEM TARTRATE Inactive METFORMIN HCL 500 MG TABS 1 PO BID METFORMIN HCL 500 MG TABS 430181 METFORMIN HCL Inactive REGLAN 10 MG TAB 1 po TID PRN Nausea REGLAN 10 MG TAB 039364 METOCLOPRAMIDE HCL Inactive MECLIZINE HCL 25 MG CHEW TAB 1 four times a day as needed for dizziness 08/05 MECLIZINE HCL 25 MG CHEW TAB 328365 MECLIZINE HCL Inactive SOMA 350 MG TAB 1 po q 6 hours prn spasm SOMA 350 MG TAB 990635 CARISOPRODOL Inactive MELATONIN 5 MG TABS Take one by mouth daily MELATONIN 5 MG TABS 125233 MELATONIN Inactive MULTIVITAMINS TABS Take one by mouth daily MULTIVITAMINS TABS MULTIPLE VITAMIN Inactive LORTAB 5 5-500 MG TABS 1/2 to 1 tablet by mouth every 4 hours as needed for pain LORTAB 5 5-500 MG TABS HYDROCODONE- ACETAMINOPHEN Inactive XANAX 0.5 MG TABS 1 tablet every 6 hrs prn XANAX 0.5 MG TABS 639292 ALPRAZOLAM Inactive AUGMENTIN 875-125 MG TAB 1 tab by mouth twice daily with food AUGMENTIN 875-125 MG TAB 949089 AMOXICILLIN-POT CLAVULANATE Inactive ALPRAZOLAM 0.5 MG TABS 1 tab every 6hrs as needed ALPRAZOLAM 0.5 MG TABS 210320 ALPRAZOLAM Inactive SPIRONOLACTONE 25 MG TAB 0.5 tablet by mouth daily SPIRONOLACTONE 25 MG TAB 054594 SPIRONOLACTONE Inactive ACCU-CHEK KEYONA PLUS W/DEVICE KIT Use for testing bloodsugars three times daily as needed ACCU-CHEK KEYONA PLUS W/DEVICE KIT BLOOD GLUCOSE MONITORING SUPPL Inactive ACCU-CHEK KEYONA PLUS STRP Use for testing bloodsugars three times daily as needed ACCU-CHEK KEYONA PLUS STRP GLUCOSE BLOOD Inactive ACCU-CHEK FASTCLIX LANCETS MISC Use to check bloodsugar three times daily as needed ACCU-CHEK FASTCLIX LANCETS MISC 16203504754 [facility] Inactive TRAMADOL HCL 50 MG TABS 1 tablets every 6 hours as needed for pain TRAMADOL HCL 50 MG TABS 144262 TRAMADOL HCL Inactive VENLAFAXINE HCL 75 MG TABS 1 po BID VENLAFAXINE HCL 75 MG TABS 648199 VENLAFAXINE HCL Inactive HYDROCODONE-ACETAMINOPHEN 5-500 MG TABS take one po Q 4-6 hours prn HYDROCODONE-ACETAMINOPHEN 5-500 MG TABS HYDROCODONE- ACETAMINOPHEN Inactive LORTAB 5 5-500 MG TABS 1/2 to 1 tablet by mouth every 4 hours as needed for pain LORTAB 5 5-500 MG TABS HYDROCODONE- ACETAMINOPHEN Inactive LAMISIL 250 MG TAB 1 po qd LAMISIL 250 MG TAB 147419 TERBINAFINE HCL Inactive VENLAFAXINE HCL 37.5 MG TABS 1 po BID VENLAFAXINE HCL 37.5 MG TABS 838791 VENLAFAXINE HCL Inactive CIPRO 500 MG TAB 1 tablet by mouth twice daily CIPRO 500 MG TAB 441375 CIPROFLOXACIN HCL Inactive VENLAFAXINE HCL 75 MG TABS 1 po BID VENLAFAXINE HCL 75 MG TABS 795735 VENLAFAXINE HCL Inactive SIMVASTATIN 40 MG TABS Take one by mouth daily SIMVASTATIN 40 MG TABS 290696 SIMVASTATIN Inactive OMEPRAZOLE 20 MG TBEC 1 PO 30 MIN BEFORE 1ST MEAL OMEPRAZOLE 20 MG TBEC 521844 OMEPRAZOLE Inactive FENOFIBRATE 145 MG TABS 1 po qd FENOFIBRATE 145 MG TABS 635687 FENOFIBRATE Inactive BACTRIM DS 800-160 MG TABS 1 bid x 14 day start 09-28-13 BACTRIM DS 800-160 MG TABS 539302 SULFAMETHOXAZOLE-TRIMETHOPRIM Inactive B-12 100 MCG TABS Take one by mouth daily B-12 100 MCG TABS CYANOCOBALAMIN Inactive GABAPENTIN 100 MG CAPS 1 po bid GABAPENTIN 100 MG CAPS 683705 GABAPENTIN Inactive HYDROCODONE-ACETAMINOPHEN 5-325 MG TABS 1 tab by mouth every 6 hours as needed for pain HYDROCODONE-ACETAMINOPHEN 5-325 MG TABS 926146 HYDROCODONE-ACETAMINOPHEN Inactive CIPRO 500 MG TABS 1 bid x 14 days start 09-28-13 CIPRO 500 MG TABS 873939 CIPROFLOXACIN HCL Inactive ALIGN 4 MG CAPS [...] as needed DICLOFENAC SODIUM 50 MG TBEC 695559 DICLOFENAC SODIUM Inactive PREDNISONE 20 MG TAB 2 tablets once daily for 2 days, then 1 tablet once daily for 2 days PREDNISONE 20 MG TAB 659054 PREDNISONE Inactive TRUEDRAW LANCING DEVICE MISC Test [...] at bedtime prn REQUIP 2 MG TABS 957222 ROPINIROLE HCL Inactive TRIAMCINOLONE ACETONIDE 0.1 % OINT Apply to affected areas TID for up to 2 weeks TRIAMCINOLONE ACETONIDE 0.1 % OINT 9117115 TRIAMCINOLONE ACETONIDE Inactive PREDNISONE 20 MG TAB 2 tabs daily for 3 days, 1 tab daily for 3 days, 1/2 tab daily for 2 days PREDNISONE 20 MG TAB 075588 PREDNISONE Inactive PREDNISONE 20 MG TAB 2 tabs daily for 3 days, 1 tab daily for 3 days, 1/2 tab daily for 2 days PREDNISONE 20 MG TAB 906043 PREDNISONE Inactive BACTRIM DS 800-160 MG TABS 1 po BID x 7 days BACTRIM DS 800-160 MG TABS 892042 SULFAMETHOXAZOLE-TRIMETHOPRIM Inactive ZITHROMAX 250 MG TAB 2 po today, then 1 po q days 2-5 ZITHROMAX 250 MG TAB 7245643 AZITHROMYCIN Inactive Advance Directives Directive Description Start Date DISCUSSED WITH PATIENT -- NO DECISION MADE Immunizations Vaccine Administration Date Value Standard Description Seasonal influenza vaccine, injectable, containing preservative, for > 3 years old (Afluria, FluLaval, Fluzone, Fluvirin, Fluarix, Agriflu(>=18 yo)) Fluzone (>3 yrs.) [[id number]] Influenza, seasonal, injectable influenza immunization (Flu Vax) has been administered 02/22/2012 influenza virus vaccine, unspecified formulation Seasonal influenza vaccine, injectable, containing preservative, for > 3 years old (Afluria, FluLaval, Fluzone, Fluvirin, Fluarix, Agriflu(>=18 yo)) Fluzone (>3 yrs.) [[id number]] Influenza, seasonal, injectable Vital Signs Date Name [...] pressure, diastolic - 8462-4 84 mm[Hg] BP ca blood pressure, systolic - 8480-6 171 mm[Hg] [...] E&M - 3141-9 310.5 [lb_av] Weight Measured Diagnostic Results Date Name [...] 7.4 % 4.3-6.0 sodium, serum 140 mmol/L 163-601 2545/09/07 potassium, serum 4.3 mmol/L 3.5-5.2 chloride, serum 104 mmol/L 98-107 carbon dioxide, venous blood 27.7 mmol/L 21.0-32.0 blood glucose 156 mg/dL 65-110 calcium, serum 9.3 mg/dL 8.5-10.1 urea nitrogen, blood 23 mg/dL 7-18 creatinine, serum 1.21 mg/dL 0.55-1.30 Lab Report: Lipid Panel, Comp. Metabolic Panel - Chemistry cholesterol, serum 124 mg/dL 025-721 1315/01/12 triglyceride, serum, fasting 135 mg/dL 30-200 HDL cholesterol, serum 41 mg/dL 32-96 LDL cholesterol, serum 56 mg/dL 0-130 sodium, serum 140 mmol/L 182-268 3910/01/12 carbon dioxide, venous blood 27.7 mmol/L 21.0-32.0 potassium, serum 4.5 mmol/L 3.5-5.2 chloride, serum 104 mmol/L 98-107 blood glucose 139 mg/dL 65-110 urea nitrogen, blood 16 mg/dL 7-18 alanine aminotransferase (SGPT), serum 32 U/L 12-78 aspartate aminotransferase (SGOT), serum 25 U/L 15-37 calcium, serum 9.1 mg/dL 8.5-10.1 bilirubin, serum, total 0.50 mg/dL 0.00-1.00 Encounters Code Encounter Date Provider Facility CPT-06603 Level 4 Est. Patient 14:40:19 CDT Tu Landeros MD [facility] CPT-24599 Level 4 Est. Patient 14:06:04 SCALPER OPERATOR Tu Landeros MD [facility] CPT-74323 Level 3 Est. Patient 14:05:18 SCALPER OPERATOR Tu Landeros MD [facility] CPT-50351 Level 3 Est. Patient 10:06:54 SCALPER OPERATOR Miranda Suresh APRN [facility] CPT-29165 Level 4 Est. Patient 13:50:18 SCALPER OPERATOR Tu Landeros MD [facility] CPT-13651 Level 3 Est. Patient 10:30:04 CDT Tu Landeros MD [facility] CPT-57709 Level 4 Est. Patient 11:03:38 CDT Tu Landeros MD [facility] CPT-38333 Level 3 Est. Patient 10:20:44 CDT Fab Morales DO [facility] CPT-83123 Level 4 Est. Patient 14:38:57 CDT Tu Landeros MD [facility] CPT-82779 Level 4 Est. Patient 14:27:39 SCALPER OPERATOR Tu Landeros MD [facility] CPT-30416 Level 4 Est. Patient 09:45:25 CDT Tu Landeros MD [facility] CPT-06585 Level 4 Est. Patient 09:05:20 SCALPER OPERATOR Tu Landeros MD [facility] CPT-93026 Level 4 Est. Patient 14:09:06 CDT Tu Landeros MD [facility] CPT-29642 Level 3 Est. Patient 13:36:54 CDT Tu Landeros MD [facility] CPT-48078 Level 3 Est. Patient 08:59:14 CDT Tu Landeros MD [facility] CPT-14627 Level 3 Est. Patient 13:48:35 CDT Fab Morales DO [facility] CPT-98776 Level 4 Est. Patient 10:05:48 CDT Tu Landeros MD [facility] CPT-25999 Level 3 Est. Patient 13:38:42 CDT Marek BANKS [facility] CPT-00424 Level 5 Est. Patient 08:08:39 CDT Jerrica FRANCIS [facility] CPT-58241 Level 4 Est. Patient 14:23:38 CDT Tu Landeros MD [facility] CPT-33320 Level 3 Est. Patient 11:44:04 CDT Tu Landeros MD [facility] CPT-84322 Level 3 Est. Patient 11:03:20 SCALPER OPERATOR Tu Landeros MD [facility] CPT-71243 Level 3 Est. Patient 11:03:14 SCALPER OPERATOR Tu Landeros MD [facility] CPT-69050 Level 3 Est. Patient 12:42:49 CDT Tu Landeros MD [facility] CPT-63068 Level 3 Est. Patient 11:52:06 CDT Tu Landeros MD [facility] CPT-57635 Level 3 Est. Patient 13:58:11 CDT Tu Landeros MD [facility] CPT-10950 Level 3 Est. Patient 17:50:07 CDT Fab Morales DO [facility] CPT-14924 Level 3 Est. Patient 12:06:29 CDT Elvira Cervantes MD [facility] CPT-85280 Level 3 Est. Patient 15:50:32 CDT Tu Landeros MD [facility] CPT-99624 Level 4 Est. Patient 16:08:29 CDT Tu Landeros MD [facility] CPT-77903 Level 3 Est. Patient 16:04:19 CDT Tu Landeros MD [facility] CPT-22984 Level 3 Est. Patient 11:22:30 SCALPER OPERATOR Tu Landeros MD [facility] CPT-04402 Level 4 Est. Patient 16:24:02 SCALPER OPERATOR Tu Landeros MD [facility] CPT-18387 Level 3 Est. Patient 17:21:23 SCALPER OPERATOR Tu Landeros MD [facility] Procedures Code Procedure Name Date Entry Date Standard Description CPT-50250 First Vx - Ix admin for Medicare patients 16:46:52 CDT CPT-35572 Fluzone Preservative Free Intramuscular Suspension 16:46 :51 CDT CPT-71623 CBC - LAB USE ONLY 17:14:46 CDT CPT-82708 HGBA1C - LAB USE ONLY 17:14:46 CDT CPT-19478 Venipuncture Draw Fee 17:14:46 CDT CPT-G0438 Initial Annual Wellness Exam 14:13:04 CDT CPT-83339 Breathing Tx 10:06:54 SCALPER OPERATOR CPT-10130 Postop F/U Visit 10:02:45 CDT CPT-LR Lesion Removal 09:02:56 CDT CPT-JTINJ Asp/Joint Injection 15:51:27 SCALPER OPERATOR CPT-OV Office Visit 15:52:02 SCALPER OPERATOR CPT-OV Office Visit 15:45:11 CDT CPT-000 Give Zostavax 14:09:06 CDT CPT-00933 Administration single or combination vaccine inc oral 15 :19:04 CDT CPT-03203 Zoster Vaccine (Zostavax) 15:19:04 CDT CPT-81065 Administration single or combination vaccine inc oral 20 :51:03 CDT CPT-52189 Influenza split virus > age 3 20:51:03 CDT CPT-02627 No Charge Offi Visit 14:52:03 CDT CPT-OV Office Visit 14:57:43 CDT CPT-OV Office Visit 15:22:32 CDT CPT-76307 Administration single or combination vaccine inc oral 11 :33:15 CDT CPT-32191 Influenza split virus > age 3 11:33:15 CDT
--- OUTSIDE RECORDS SUMMARY | 2018-04-25 15:07 | XMS REPORT | Clinical Summary ---
Author Author Admin, SACHI Organization [facility] Address Unknown Phone Unavailable Allergies, Adverse Reactions, [...] ICD-782.1 Inactive Tu Landeros MD FATIGUE ICD-780.79 Tsesa Landeros MD 2012 CARPAL TUNNEL SYNDROME ICD-354.0 [...] MD Ear pain, bilateral ICD-388.70 Inactive Tu Landeors MD Hot flashes ICD-627.2 Inactive Tu Landeros MD Sebaceous cyst ICD-706.2 Inactive Tu Landeros MD Upper respiratory infection, viral ICD-465.9 Inactive Tu Landeros MD Sinusitis - acute ICD-461.9 Inactive Tu Landeros MD Leg pain, left ICD-729.5 Inactive Tu Landeros MD Medication List Medication Instructions Start Date Stop Date Generic Name NDC Status Provider Patient Instruction SIMVASTATIN 40 MG TABS 0.5 po qHS SIMVASTATIN 20557872950 Active Tu Landeros MD Active FISH OIL 1000 MG CAPS 1 po qd OMEGA-3 FATTY ACIDS 89747460261 Active Tu Landeros MD Active METFORMIN HCL 1000 MG TABS 1 po BID METFORMIN HCL 61635295264 Active Tu Landeros MD Active KLOR-CON 10 10 MEQ CR-TABS 2 po qd POTASSIUM CHLORIDE 48923733594 Active Tu Landeros MD Active FUROSEMIDE 40 MG TAB 1 po qd FUROSEMIDE 07885179259 Active Tu Landeros MD Active REQUIP 2 MG ORAL TABS 1 po qHS PRN Restless legs ROPINIROLE HCL 26272628554 Active Tu Landeros MD Active VENLAFAXINE HCL 37.5 MG TABS 1 po BID VENLAFAXINE HCL 85392770450 Active Tu Landeros MD Active GABAPENTIN 100 MG CAPS 1 po BID GABAPENTIN 09804591548 Active José Luis Becerra MD Active REQUIP 2 MG TABS Take one tablet at bedtime prn ROPINIROLE HCL 96207499726 No Longer Active Tu Landeros MD Active VENTOLIN HFA 108 (90 BASE) MCG/ACT AERS 1-2 puffs every 4 hours if needed for cough/congestion ALBUTEROL SULFATE 22718163035 No Longer Active Ambika Aden APRN Active ZITHROMAX 250 MG TAB 2 po today, then 1 po q days 2-5 AZITHROMYCIN 16124245264 No Longer Active Miranda Suresh APRN Active FLONASE 50 MCG/ACT SUSP 1 spray each nostril twice daily until bottle empty FLUTICASONE PROPIONATE 78730536343 No Longer Active Tu Landeros MD Active COLACE 100 MG CAP 1 po BID PRN Constipation DOCUSATE SODIUM 47961904765 Active Tu Landeros MD Active TRUERESULT BLOOD GLUCOSE W/DEVICE KIT test blood sugar twice daily dx 250.00 BLOOD GLUCOSE MONITORING SUPPL 49927313714 No Longer Active Tu Landeros MD Active TRUEDRAW LANCING DEVICE MISC Test twice a day dx 250.0 LANCET DEVICES 90650658964 No Longer Active Tu Landeros MD Active PREDNISONE 20 MG TAB 2 tablets once daily for 2 days, then 1 tablet once daily for 2 days PREDNISONE 41326290602 No Longer Active Tu Landeros MD Active DICLOFENAC SODIUM 50 MG TBEC 1 tablet by mouth three times a day as needed DICLOFENAC SODIUM 52198292797 No Longer Active Fab Morales DO Active TRUEDRAW LANCING DEVICE MISC test blood sugar twice daily dx: 250.00 LANCET DEVICES 09106661109 Active Tu Landeros MD Active TRUETEST TEST INVITR STRP test blood sugar twice daily. DX 250.0 GLUCOSE BLOOD 84574060323 Active Tu Landeros MD Active EMBRACE BLOOD GLUCOSE TEST STRP test blood sugar twice daily DX 250.0 2014 GLUCOSE BLOOD 04877915569 No Longer Active Tu Landeros MD Active TRUETEST TEST STRP test blood sugar three times daily dx: 250.00 GLUCOSE BLOOD 44163731712 No Longer Active Suze VOGEL Active TRUERESULT BLOOD GLUCOSE W/DEVICE KIT use to test blood sugar tid dx: 250.00 BLOOD GLUCOSE MONITORING SUPPL 44874913204 No Longer Active Suze Nicole JASPREET Active ALIGN 4 MG CAPS 1 tid PROBIOTIC PRODUCT 38710729842 No Longer Active Shaun Sy MD Active CIPRO 500 MG TABS 1 bid x 14 days start 09-28-13 CIPROFLOXACIN HCL 84618214668 No Longer Active Shaun Sy MD Active TRAMADOL HCL 50 MG TABS 1-2 tablets every 6 hours as needed for pain TRAMADOL HCL 16998721123 Active Tu Landeros MD Active HYDROCODONE-ACETAMINOPHEN 5-325 MG TABS 1 tab by mouth every 6 hours as needed for pain HYDROCODONE-ACETAMINOPHEN 39622307270 No Longer Active Tu Landeros MD Active OMEPRAZOLE 20 MG CPDR 1 po q a.m. OMEPRAZOLE 22511767911 Active Tu Landeros MD Active GABAPENTIN 100 MG CAPS 1 po bid GABAPENTIN 85934258852 No Longer Active Tu Landeros MD Active B-12 100 MCG TABS Take one by mouth daily CYANOCOBALAMIN 56395644266 No Longer Active Tu Landeros MD Active BACTRIM DS 800-160 MG TABS 1 bid x 14 day start 09-28-13 SULFAMETHOXAZOLE-TRIMETHOPRIM 85508668122 No Longer Active Tu Landeros MD Active CARVEDILOL 12.5 MG TABS 1 po BID CARVEDILOL 52150621010 Active Tu Landeros MD Active SUPER B COMPLEX/VITAMIN C TABS 1 qd B COMPLEX-C 55221104408 Active JASPREET Perez Active TRILIPIX 135 MG CPDR 1 q hs CHOLINE FENOFIBRATE 96194411251 Active Tu Landeros MD Active FENOFIBRATE 145 MG TABS 1 po qd FENOFIBRATE 55730531928 No Longer Active JASPREET Perez Active OMEPRAZOLE 20 MG TBEC 1 PO 30 MIN BEFORE 1ST MEAL OMEPRAZOLE 40989408072 No Longer Active JASPREET Perez Active SIMVASTATIN 40 MG TABS Take one by mouth daily SIMVASTATIN 54592691422 No Longer Active JASPREET Perez Active VENLAFAXINE HCL 75 MG TABS 1 po BID VENLAFAXINE HCL 66568713294 No Longer Active JASPREET Perez Active CIPRO 500 MG TAB 1 tablet by mouth twice daily CIPROFLOXACIN HCL 58533945824 No Longer Active Tu Landeros MD Active VENLAFAXINE HCL 37.5 MG TABS 1 po BID VENLAFAXINE HCL 40819399132 No Longer Active Suzebianca Seguraart RMA Active LAMISIL 250 MG TAB 1 po qd TERBINAFINE HCL 67142549149 No Longer Active Tu Landeros MD Active LORTAB 5 5-500 MG TABS 1/2 to 1 tablet by mouth every 4 hours as needed for pain HYDROCODONE-ACETAMINOPHEN 36166924519 No Longer Active Tu Landeros MD Active ENALAPRIL MALEATE 20 MG TABS 1.5 po qd ENALAPRIL MALEATE 12924708014 Active Tu Landeros MD Active HYDROCODONE-ACETAMINOPHEN 5-500 MG TABS take one po Q 4-6 hours prn HYDROCODONE-ACETAMINOPHEN 94269235063 No Longer Active Tu Landeros MD Active BACTRIM DS 800-160 MG TABS 1 po BID x 7 days SULFAMETHOXAZOLE-TRIMETHOPRIM 79685936344 No Longer Active Tu Landeros MD Active VENLAFAXINE HCL 75 MG TABS 1 po BID VENLAFAXINE HCL 65678303470 No Longer Active Elvira Cervantes MD PhD Active TRAMADOL HCL 50 MG TABS 1 tablets every 6 hours as needed for pain TRAMADOL HCL 06945075339 No Longer Active Tu Landeros MD Active ACCU-CHEK FASTCLIX LANCETS MISC Use to check bloodsugar three times daily as needed LANCETS 56824336965 No Longer Active Tu Landeros MD Active ACCU-CHEK KEYONA PLUS STRP Use for testing bloodsugars three times daily as needed GLUCOSE BLOOD 81509450290 No Longer Active Tu Landeros MD Active ACCU-CHEK KEYONA PLUS W/DEVICE KIT Use for testing bloodsugars three times daily as needed BLOOD GLUCOSE MONITORING SUPPL 69125266106 No Longer Active Tu Landeros MD Active SPIRONOLACTONE 25 MG TAB 0.5 tablet by mouth daily SPIRONOLACTONE 99833762973 No Longer Active Tu Landeros MD Active ALPRAZOLAM 0.5 MG TABS 1 tab every 6hrs as needed ALPRAZOLAM 11352516913 No Longer Active Tu Landeros MD Active AUGMENTIN 875-125 MG TAB 1 tab by mouth twice daily with food AMOXICILLIN-POT CLAVULANATE 07052069014 No Longer Active Tu Landeros MD Active PREDNISONE 20 MG TAB 2 tabs daily for 3 days, 1 tab daily for 3 days, 1/2 tab daily for 2 days PREDNISONE 18082024165 No Longer Active Tu Landeros MD Active XANAX 0.5 MG TABS 1 tablet every 6 hrs prn ALPRAZOLAM 33135197856 No Longer Active Tu Landeros MD Active PREDNISONE 20 MG TAB 2 tabs daily for 3 days, 1 tab daily for 3 days, 1/2 tab daily for 2 days PREDNISONE 21175789374 No Longer Active Tu Landeros MD Active TRIAMCINOLONE ACETONIDE 0.1 % OINT Apply to affected areas TID for up to 2 weeks TRIAMCINOLONE ACETONIDE 74271005696 No Longer Active Tu Landeros MD Active LORTAB 5 5-500 MG TABS 1/2 to 1 tablet by mouth every 4 hours as needed for pain HYDROCODONE-ACETAMINOPHEN 23170870257 No Longer Active Tu Landeros MD Active MULTIVITAMINS TABS Take one by mouth daily MULTIPLE VITAMIN 49752488549 No Longer Active Tu Landeros MD Active MELATONIN 5 MG TABS Take one by mouth daily MELATONIN 90309898785 No Longer Active Tu Landeros MD Active SOMA 350 MG TAB 1 po q 6 hours prn spasm CARISOPRODOL 54787411991 No Longer Active Tu Landeros MD Active MECLIZINE HCL 25 MG CHEW TAB 1 four times a day as needed for dizziness 08/05 MECLIZINE HCL 50409373340 No Longer Active Fab Morales DO Active ANGEL BREEZE 2 TEST DISK test tid prn GLUCOSE BLOOD 43829801358 No Longer Active Negra Scott RN Active REGLAN 10 MG TAB 1 po TID PRN Nausea METOCLOPRAMIDE HCL 80399231224 No Longer Active Tu Landeros MD Active METFORMIN HCL 500 MG TABS 1 PO BID METFORMIN HCL 25743919750 No Longer Active Tu Landeros MD Active AMBIEN 10 MG TAB 1 tab by mouth at bedtime as needed for sleep ZOLPIDEM TARTRATE 04496561604 No Longer Active Tu Landeros MD Active FLUOXETINE HCL 40 MG CAPS 1 po q day FLUOXETINE HCL 77900857648 No Longer Active Mayra Umatilla Active GLUCOSAMINE 500 MG TABS Take 2 tab po qd GLUCOSAMINE 46808153408 Active Tu Landeros MD Active TRILIPIX 135 MG CPDR 1 po qd CHOLINE FENOFIBRATE 57532496349 No Longer Active Tu Landeros MD Active ASPIRIN 81 MG CHEW TAB 1 tablet by mouth daily ASPIRIN 05121499589 Active Tu Landeros MD Active AMBIEN 10 MG TAB 1 tab by mouth at bedtime as needed for sleep AMBIEN 10 MG TAB 396871 ZOLPIDEM TARTRATE Inactive METFORMIN HCL 500 MG TABS 1 PO BID METFORMIN HCL 500 MG TABS 877206 METFORMIN HCL Inactive REGLAN 10 MG TAB 1 po TID PRN Nausea REGLAN 10 MG TAB 505137 METOCLOPRAMIDE HCL Inactive MECLIZINE HCL 25 MG CHEW TAB 1 four times a day as needed for dizziness 08/05 MECLIZINE HCL 25 MG CHEW TAB 017010 MECLIZINE HCL Inactive SOMA 350 MG TAB 1 po q 6 hours prn spasm SOMA 350 MG TAB 181477 CARISOPRODOL Inactive MELATONIN 5 MG TABS Take one by mouth daily MELATONIN 5 MG TABS 806665 MELATONIN Inactive MULTIVITAMINS TABS Take one by mouth daily MULTIVITAMINS TABS MULTIPLE VITAMIN Inactive LORTAB 5 5-500 MG TABS 1/2 to 1 tablet by mouth every 4 hours as needed for pain LORTAB 5 5-500 MG TABS HYDROCODONE- ACETAMINOPHEN Inactive XANAX 0.5 MG TABS 1 tablet every 6 hrs prn XANAX 0.5 MG TABS 839634 ALPRAZOLAM Inactive AUGMENTIN 875-125 MG TAB 1 tab by mouth twice daily with food AUGMENTIN 875-125 MG TAB 939140 AMOXICILLIN-POT CLAVULANATE Inactive ALPRAZOLAM 0.5 MG TABS 1 tab every 6hrs as needed ALPRAZOLAM 0.5 MG TABS 353098 ALPRAZOLAM Inactive SPIRONOLACTONE 25 MG TAB 0.5 tablet by mouth daily SPIRONOLACTONE 25 MG TAB 748537 SPIRONOLACTONE Inactive ACCU-CHEK KEYONA PLUS W/DEVICE KIT Use for testing bloodsugars three times daily as needed ACCU-CHEK KEYONA PLUS W/DEVICE KIT BLOOD GLUCOSE MONITORING SUPPL Inactive ACCU-CHEK KEYONA PLUS STRP Use for testing bloodsugars three times daily as needed ACCU-CHEK KEYONA PLUS STRP GLUCOSE BLOOD Inactive ACCU-CHEK FASTCLIX LANCETS MIS Use to check bloodsugar three times daily as needed [facility] 687[facility] LANCETS Inactive TRAMADOL HCL 50 MG TABS 1 tablets every 6 hours as needed for pain TRAMADOL HCL 50 MG TABS 806455 TRAMADOL HCL Inactive VENLAFAXINE HCL 75 MG TABS 1 po BID VENLAFAXINE HCL 75 MG TABS 681729 VENLAFAXINE HCL Inactive HYDROCODONE-ACETAMINOPHEN 5-500 MG TABS take one po Q 4-6 hours prn HYDROCODONE-ACETAMINOPHEN 5-500 MG TABS HYDROCODONE- ACETAMINOPHEN Inactive LORTAB 5 5-500 MG TABS 1/2 to 1 tablet by mouth every 4 hours as needed for pain LORTAB 5 5-500 MG TABS HYDROCODONE- ACETAMINOPHEN Inactive LAMISIL 250 MG TAB 1 po qd LAMISIL 250 MG TAB 021494 TERBINAFINE HCL Inactive VENLAFAXINE HCL 37.5 MG TABS 1 po BID VENLAFAXINE HCL 37.5 MG TABS 102069 VENLAFAXINE HCL Inactive CIPRO 500 MG TAB 1 tablet by mouth twice daily CIPRO 500 MG TAB 078474 CIPROFLOXACIN HCL Inactive VENLAFAXINE HCL 75 MG TABS 1 po BID VENLAFAXINE HCL 75 MG TABS 642777 VENLAFAXINE HCL Inactive SIMVASTATIN 40 MG TABS Take one by mouth daily SIMVASTATIN 40 MG TABS 779226 SIMVASTATIN Inactive OMEPRAZOLE 20 MG TBEC 1 PO 30 MIN BEFORE 1ST MEAL OMEPRAZOLE 20 MG TBEC 797352 OMEPRAZOLE Inactive FENOFIBRATE 145 MG TABS 1 po qd FENOFIBRATE 145 MG TABS 646377 FENOFIBRATE Inactive BACTRIM DS 800-160 MG TABS 1 bid x 14 day start 09-28-13 BACTRIM DS 800-160 MG TABS 878723 SULFAMETHOXAZOLE-TRIMETHOPRIM Inactive B-12 100 MCG TABS Take one by mouth daily B-12 100 MCG TABS CYANOCOBALAMIN Inactive GABAPENTIN 100 MG CAPS 1 po bid GABAPENTIN 100 MG CAPS 239901 GABAPENTIN Inactive HYDROCODONE-ACETAMINOPHEN 5-325 MG TABS 1 tab by mouth every 6 hours as needed for pain HYDROCODONE-ACETAMINOPHEN 5-325 MG TABS 134655 HYDROCODONE-ACETAMINOPHEN Inactive CIPRO 500 MG TABS 1 bid x 14 days start 09-28-13 CIPRO 500 MG TABS 749525 CIPROFLOXACIN HCL Inactive ALIGN 4 MG CAPS [...] as needed DICLOFENAC SODIUM 50 MG TBEC 210778 DICLOFENAC SODIUM Inactive PREDNISONE 20 MG TAB 2 tablets once daily for 2 days, then 1 tablet once daily for 2 days PREDNISONE 20 MG TAB 286758 PREDNISONE Inactive TRUEDRAW LANCING DEVICE MISC Test [...] at bedtime prn REQUIP 2 MG TABS 835708 ROPINIROLE HCL Inactive TRIAMCINOLONE ACETONIDE 0.1 % OINT Apply to affected areas TID for up to 2 weeks TRIAMCINOLONE ACETONIDE 0.1 % OINT 2098939 TRIAMCINOLONE ACETONIDE Inactive PREDNISONE 20 MG TAB 2 tabs daily for 3 days, 1 tab daily for 3 days, 1/2 tab daily for 2 days PREDNISONE 20 MG TAB 742710 PREDNISONE Inactive PREDNISONE 20 MG TAB 2 tabs daily for 3 days, 1 tab daily for 3 days, 1/2 tab daily for 2 days PREDNISONE 20 MG TAB 843925 PREDNISONE Inactive BACTRIM DS 800-160 MG TABS 1 po BID x 7 days BACTRIM DS 800-160 MG TABS 499335 SULFAMETHOXAZOLE-TRIMETHOPRIM Inactive ZITHROMAX 250 MG TAB 2 po today, then 1 po q days 2-5 ZITHROMAX 250 MG TAB 1339173 AZITHROMYCIN Inactive Advance Directives Directive Description Start Date DISCUSSED WITH PATIENT -- NO DECISION MADE Immunizations Vaccine Administration Date Value Standard Description Seasonal influenza vaccine, injectable, containing preservative, for > 3 years old (Afluria, FluLaval, Fluzone, Fluvirin, Fluarix, Agriflu(>=18 yo)) Fluzone (>3 yrs.) [[id number]] Influenza, seasonal, injectable influenza immunization (Flu Vax) has been administered 02/22/2012 influenza virus vaccine, unspecified formulation Seasonal influenza vaccine, injectable, containing preservative, for > 3 years old (Afluria, FluLaval, Fluzone, Fluvirin, Fluarix, Agriflu(>=18 yo)) Fluzone (>3 yrs.) [[id number]] Influenza, seasonal, injectable Vital Signs Date Name [...] Magnesium - Chemistry sodium, serum 143 mmol/L 490-718 6926/01/10 carbon dioxide, venous blood 28.0 mmol/L 21.0-32.0 potassium, serum 4.5 mmol/L 3.5-5.2 chloride, serum 104 mmol/L 98-107 blood glucose 158 mg/dL 65-110 urea nitrogen, blood 23 mg/dL 7-18 creatinine, serum 1.06 mg/dL 0.55-1.30 alanine aminotransferase (SGPT), serum 42 U/L 12-78 aspartate aminotransferase (SGOT), serum 32 U/L 15-37 calcium, serum 9.3 mg/dL 8.5-10.1 bilirubin, serum, total 0.20 mg/dL 0.00-1.00 cholesterol, serum 177 mg/dL 732-842 3140/01/10 triglyceride, serum, fasting 320 mg/dL 30-200 HDL cholesterol, serum 46 mg/dL 32-96 LDL cholesterol, serum 67 mg/dL 0-130 Lab Report: HGBA1C - Chemistry hemoglobin A1C, blood, as % of total hemoglobin 7.7 % 4.3-6.0 hemoglobin A1C, blood, as % of total hemoglobin 7.1 % 4.3-6.0 hemoglobin A1C, blood, as % of total hemoglobin 7.4 % 4.3-6.0 sodium, serum 140 mmol/L 652-035 9209/09/07 potassium, serum 4.3 mmol/L 3.5-5.2 chloride, serum 104 mmol/L 98-107 carbon dioxide, venous blood 27.7 mmol/L 21.0-32.0 blood glucose 156 mg/dL 65-110 calcium, serum 9.3 mg/dL 8.5-10.1 urea nitrogen, blood 23 mg/dL 7-18 creatinine, serum 1.21 mg/dL 0.55-1.30 Lab Report: Lipid Panel, Comp. Metabolic Panel - Chemistry cholesterol, serum 124 mg/dL 898-198 0810/01/12 triglyceride, serum, fasting 135 mg/dL 30-200 HDL cholesterol, serum 41 mg/dL 32-96 LDL cholesterol, serum 56 mg/dL 0-130 sodium, serum 140 mmol/L 227-616 8151/01/12 carbon dioxide, venous blood 27.7 mmol/L 21.0-32.0 potassium, serum 4.5 mmol/L 3.5-5.2 chloride, serum 104 mmol/L 98-107 blood glucose 139 mg/dL 65-110 urea nitrogen, blood 16 mg/dL 7-18 alanine aminotransferase (SGPT), serum 32 U/L 12-78 aspartate aminotransferase (SGOT), serum 25 U/L 15-37 calcium, serum 9.1 mg/dL 8.5-10.1 bilirubin, serum, total 0.50 mg/dL 0.00-1.00 Encounters Code Encounter Date Provider Facility CPT-71694 Level 4 Est. Patient 14:40:19 CDT Tu Landeros MD [facility] CPT-98264 Level 4 Est. Patient 14:06:04 TOWER TECHNICIAN Tu Landeros MD [facility] CPT-72082 Level 3 Est. Patient 14:05:18 TOWER TECHNICIAN Tu Landeros MD [facility] CPT-04164 Level 3 Est. Patient 10:06:54 TOWER TECHNICIAN Miranda Suresh APRN [facility] CPT-57224 Level 4 Est. Patient 13:50:18 TOWER TECHNICIAN Tu Landeros MD [facility] CPT-38022 Level 3 Est. Patient 10:30:04 CDT Tu Landeros MD [facility] CPT-20863 Level 4 Est. Patient 11:03:38 CDT Tu Landeros MD [facility] CPT-72900 Level 3 Est. Patient 10:20:44 CDT Fab Morales DO [facility] CPT-27279 Level 4 Est. Patient 14:38:57 CDT Tu Landeros MD [facility] CPT-11802 Level 4 Est. Patient 14:27:39 TOWER TECHNICIAN Tu Landeros MD [facility] CPT-81636 Level 4 Est. Patient 09:45:25 CDT Tu Landeros MD [facility] CPT-99643 Level 4 Est. Patient 09:05:20 TOWER TECHNICIAN Tu Landeros MD [facility] CPT-93072 Level 4 Est. Patient 14:09:06 CDT Tu Landeros MD [facility] CPT-16944 Level 3 Est. Patient 13:36:54 CDT Tu Landeros MD [facility] CPT-48837 Level 3 Est. Patient 08:59:14 CDT Tu Landeros MD [facility] CPT-40194 Level 3 Est. Patient 13:48:35 CDT Fab Morales DO [facility] CPT-28987 Level 4 Est. Patient 10:05:48 CDT Tu Landeros MD [facility] CPT-67694 Level 3 Est. Patient 13:38:42 CDT Marek BANKS [facility] CPT-00160 Level 5 Est. Patient 08:08:39 CDT Jerrica FRANCIS [facility] CPT-42807 Level 4 Est. Patient 14:23:38 CDT Tu Landeros MD [facility] CPT-21937 Level 3 Est. Patient 11:44:04 CDT Tu Landeros MD [facility] CPT-59160 Level 3 Est. Patient 11:03:20 TOWER TECHNICIAN Tu Landeros MD [facility] CPT-62334 Level 3 Est. Patient 11:03:14 TOWER TECHNICIAN Tu Landeros MD [facility] CPT-87313 Level 3 Est. Patient 12:42:49 CDT Tu Landeros MD [facility] CPT-57646 Level 3 Est. Patient 11:52:06 CDT Tu Landeros MD [facility] CPT-05933 Level 3 Est. Patient 13:58:11 CDT Tu Landeros MD [facility] CPT-77580 Level 3 Est. Patient 17:50:07 CDT Fab Morales DO [facility] CPT-16279 Level 3 Est. Patient 12:06:29 CDT Elvira Cervantes MD PhD [facility] CPT-06634 Level 3 Est. Patient 15:50:32 CDT Tu Landeros MD [facility] CPT-54161 Level 4 Est. Patient 16:08:29 CDT Tu Landeros MD [facility] CPT-06096 Level 3 Est. Patient 16:04:19 CDT Tu Landeros MD [facility] CPT-28843 Level 3 Est. Patient 11:22:30 TOWER TECHNICIAN Tu Landeros MD [facility] CPT-72844 Level 4 Est. Patient 16:24:02 TOWER TECHNICIAN Tu Landeros MD [facility] CPT-70280 Level 3 Est. Patient 17:21:23 TOWER TECHNICIAN Tu Landeros MD [facility] Procedures Code Procedure Name Date Entry Date Standard Description CPT-56001 Magnesium - LAB USE ONLY 11:14:20 TOWER TECHNICIAN CPT-35221 Lipid - LAB USE ONLY 11:14:20 TOWER TECHNICIAN CPT-09992 HGBA1C - LAB USE ONLY 11:14:20 TOWER TECHNICIAN CPT-40188 CMP - LAB USE ONLY 11:14:19 TOWER TECHNICIAN CPT-58554 CBC - LAB USE ONLY 11:14:19 TOWER TECHNICIAN CPT-30256 Venipuncture Draw Fee 11:14:18 TOWER TECHNICIAN CPT-66992 First Vx - Ix admin for Medicare patients 16:46:52 CDT CPT-62164 Fluzone Preservative Free Intramuscular Suspension 16:46 :51 CDT CPT-53469 CBC - LAB USE ONLY 17:14:46 CDT CPT-61027 HGBA1C - LAB USE ONLY 17:14:46 CDT CPT-69843 Venipuncture Draw Fee 17:14:46 CDT CPT-G0438 Initial Annual Wellness Exam 14:13:04 CDT CPT-21270 Breathing Tx 10:06:54 TOWER TECHNICIAN CPT-50681 Postop F/U Visit 10:02:45 CDT CPT-LR Lesion Removal 09:02:56 CDT CPT-JTINJ Asp/Joint Injection 15:51:27 TOWER TECHNICIAN CPT-OV Office Visit 15:52:02 TOWER TECHNICIAN CPT-OV Office Visit 15:45:11 CDT CPT-000 Give Zostavax 14:09:06 CDT CPT-57037 Administration single or combination vaccine inc oral 15 :19:04 CDT CPT-31134 Zoster Vaccine (Zostavax) 15:19:04 CDT CPT-79328 Administration single or combination vaccine inc oral 20 :51:03 CDT CPT-26491 Influenza split virus > age 3 20:51:03 CDT CPT-38984 No Charge Offi Visit 14:52:03 CDT CPT-OV Office Visit 14:57:43 CDT CPT-OV Office Visit 15:22:32 CDT CPT-82470 Administration single or combination vaccine inc oral 11 :33:15 CDT CPT-19749 Influenza split virus > age 3 11:33:15 CDT
--- OUTSIDE RECORDS SUMMARY | 2018-04-25 15:13 | XMS REPORT | Clinical Summary ---
Author Author Admin, SACHI Organization [facility] Address Unknown Phone Unavailable Allergies, Adverse Reactions, [...] MD Knee pain, left, acute ICD-719.46 Inactive uT Landeros MD Osteoarthritis ICD-715.90 Inactive Tu Landeros [...] po TID PRN Muscle Spasm CYCLOBENZAPRINE HCL 73020618353 Active Tu Landeros MD Active DICLOFENAC SODIUM 50 MG ORAL TBEC 1 po BID PRN Pain DICLOFENAC SODIUM 04587619050 Delores Landeros MD Active INVOKANA 100 MG ORAL TABS 1 po qd CANAGLIFLOZIN 64340549692 Active Tu Landeros MD Active GLIPIZIDE 5 MG ORAL TABS 1 po qd GLIPIZIDE 19810885830 No Longer Active Tu Landeros MD Active VENLAFAXINE HCL 75 MG ORAL TABS 1 po BID VENLAFAXINE HCL 96175247252 Active Tu Landeros MD Active GLIMEPIRIDE 1 MG ORAL TABS 1 po qd GLIMEPIRIDE 06236921104 No Longer Active Tu Landeros MD Active TRUE METRIX BLOOD GLUCOSE TEST INVITR STRP Test blood sugar BID Dx: E11.9 GLUCOSE BLOOD 76814947677 Active Tu Landeros MD Active TRUE METRIX AIR GLUCOSE METER W/DEVICE KIT Test blood glucose BID Dx: E11.9 BLOOD GLUCOSE MONITORING SUPPL 60109650801 Active Tu Landeros MD Active TRUETEST TEST INVITR STRP test blood sugar twice daily. DX 250.0 GLUCOSE BLOOD 44487723103 No Longer Active Mirna Stanley LPN Active TRUEDRAW LANCING DEVICE MISC test blood sugar twice daily dx: 250.00 LANCET DEVICES 53798723834 No Longer Active Mirna Stanley LPN Active ENALAPRIL MALEATE 20 MG TABS 2 po qd ENALAPRIL MALEATE 72541749820 Active Tu Landeros MD Active SUPER B COMPLEX/VITAMIN C TABS 1 qd B COMPLEX-C 24550376771 No Longer Active Tu Landeros MD Active ASPIRIN EC 81 MG ORAL TBEC 1 po qd ASPIRIN 01845454325 Active Tu Landeros MD Active GLUCOSAMINE 500 MG TABS 2 po qd GLUCOSAMINE Active Tu Landeros MD Active SIMVASTATIN 40 MG TABS 0.5 po qHS SIMVASTATIN 83120324138 Active Tu Landeros MD Active FISH OIL 1000 MG CAPS 1 po qd OMEGA-3 FATTY ACIDS 55381176512 Active Tu Landeros MD Active METFORMIN HCL 1000 MG TABS 1 po BID METFORMIN HCL 70601533207 Active Tu Landeros MD Active KLOR-CON 10 10 MEQ CR-TABS 2 po qd POTASSIUM CHLORIDE 56980279303 Active Tu Landeros MD Active FUROSEMIDE 40 MG TAB 1 po qd FUROSEMIDE 41036732660 Active Tu Landeros MD Active REQUIP 2 MG ORAL TABS 1 po qHS PRN Restless legs ROPINIROLE HCL 32187087017 Active Tu Landerso MD Active GABAPENTIN 100 MG CAPS 1 po BID GABAPENTIN 28338017577 Active Tu Landeros MD Active REQUIP 2 MG TABS Take one tablet at bedtime prn ROPINIROLE HCL 92503056607 No Longer Active Tu Landeros MD Active VENTOLIN HFA 108 (90 BASE) MCG/ACT AERS 1-2 puffs every 4 hours if needed for cough/congestion ALBUTEROL SULFATE 32449922570 No Longer Active Ambika Aden APRN Active ZITHROMAX 250 MG TAB 2 po today, then 1 po q days 2-5 AZITHROMYCIN 82440178930 No Longer Active Miranda Suresh APRN Active FLONASE 50 MCG/ACT SUSP 1 spray each nostril twice daily until bottle empty FLUTICASONE PROPIONATE 03196057279 No Longer Active Tu Landeros MD Active COLACE 100 MG CAP 1 po BID PRN Constipation DOCUSATE SODIUM 56704167605 Active Tu Landeros MD Active TRUERESULT BLOOD GLUCOSE W/DEVICE KIT test blood sugar twice daily dx 250.00 BLOOD GLUCOSE MONITORING SUPPL 28817811893 No Longer Active Tu Landeros MD Active TRUEDRAW LANCING DEVICE MISC Test twice a day dx 250.0 LANCET DEVICES 14895446121 No Longer Active Tu Landeros MD Active PREDNISONE 20 MG TAB 2 tablets once daily for 2 days, then 1 tablet once daily for 2 days PREDNISONE 19797340451 No Longer Active Tu Landeros MD Active DICLOFENAC SODIUM 50 MG TBEC 1 tablet by mouth three times a day as needed DICLOFENAC SODIUM 38851686130 No Longer Active Fab W Andrew DO Active EMBRACE BLOOD GLUCOSE TEST STRP test blood sugar twice daily DX 250.0 2014 GLUCOSE BLOOD 39286715627 No Longer Active Tu Landeros MD Active TRUETEST TEST STRP test blood sugar three times daily dx: 250.00 GLUCOSE BLOOD 73560482107 No Longer Active Suze VOGEL Active TRUERESULT BLOOD GLUCOSE W/DEVICE KIT use to test blood sugar tid dx: 250.00 BLOOD GLUCOSE MONITORING SUPPL 10059536015 No Longer Active Suze Hardenehart RMA Active ALIGN 4 MG CAPS 1 tid PROBIOTIC PRODUCT 83132791687 No Longer Active Shaun Sy MD Active CIPRO 500 MG TABS 1 bid x 14 days start 09-28-13 CIPROFLOXACIN HCL 13152938911 No Longer Active Shaun Sy MD Active TRAMADOL HCL 50 MG TABS 1-2 tablets every 6 hours as needed for pain TRAMADOL HCL 31550562394 Active Tu Landeros MD Active HYDROCODONE-ACETAMINOPHEN 5-325 MG TABS 1 tab by mouth every 6 hours as needed for pain HYDROCODONE-ACETAMINOPHEN 48481822363 No Longer Active Tu Landeros MD Active OMEPRAZOLE 20 MG CPDR 1 po q a.m. OMEPRAZOLE 91828337218 Active Lesli Kellogg APRN Active GABAPENTIN 100 MG CAPS 1 po bid GABAPENTIN 50324980998 No Longer Active Tu Landeros MD Active B-12 100 MCG TABS Take one by mouth daily CYANOCOBALAMIN 40555501661 No Longer Active Tu Landeros MD Active BACTRIM DS 800-160 MG TABS 1 bid x 14 day start 09-28-13 SULFAMETHOXAZOLE-TRIMETHOPRIM 60577749024 No Longer Active Tu Landeros MD Active CARVEDILOL 12.5 MG TABS 1 po BID CARVEDILOL 43068188664 Active Tu Landeros MD Active TRILIPIX 135 MG CPDR 1 q hs CHOLINE FENOFIBRATE 05218641088 Active Tu Landeros MD Active FENOFIBRATE 145 MG TABS 1 po qd FENOFIBRATE 92576613280 No Longer Active JASPREET Perez Active OMEPRAZOLE 20 MG TBEC 1 PO 30 MIN BEFORE 1ST MEAL OMEPRAZOLE 57431340982 No Longer Active JASPREET Perez Active SIMVASTATIN 40 MG TABS Take one by mouth daily SIMVASTATIN 98927485269 No Longer Active JASPREET Perez Active VENLAFAXINE HCL 75 MG TABS 1 po BID VENLAFAXINE HCL 49385021258 No Longer Active JASPREET Perez Active CIPRO 500 MG TAB 1 tablet by mouth twice daily CIPROFLOXACIN HCL 87428040943 No Longer Active Tu Landeros MD Active VENLAFAXINE HCL 37.5 MG TABS 1 po BID VENLAFAXINE HCL 21954370354 No Longer Active Suze Nicole [facility] Active LAMISIL 250 MG TAB 1 po qd TERBINAFINE HCL 80281563799 No Longer Active Tu Landeros MD Active LORTAB 5 5-500 MG TABS 1/2 to 1 tablet by mouth every 4 hours as needed for pain HYDROCODONE-ACETAMINOPHEN 98565186372 No Longer Active Tu Landeros MD Active HYDROCODONE-ACETAMINOPHEN 5-500 MG TABS take one po Q 4-6 hours prn HYDROCODONE-ACETAMINOPHEN 18351069812 No Longer Active Tu Landeros MD Active BACTRIM DS 800-160 MG TABS 1 po BID x 7 days SULFAMETHOXAZOLE-TRIMETHOPRIM 66390299645 No Longer Active Tu Landeros MD Active VENLAFAXINE HCL 75 MG TABS 1 po BID VENLAFAXINE HCL 67585505793 No Longer Active Elvira Cervantes MD PhD Active TRAMADOL HCL 50 MG TABS 1 tablets every 6 hours as needed for pain TRAMADOL HCL 10265703839 No Longer Active Tu Landeros MD Active ACCU-CHEK FASTCLIX LANCETS MISC Use to check bloodsugar three times daily as needed LANCETS 53486187298 No Longer Active Tu Landeros MD Active ACCU-CHEK KEYONA PLUS STRP Use for testing bloodsugars three times daily as needed GLUCOSE BLOOD 72836611410 No Longer Active Tu Landeros MD Active ACCU-CHEK KEYONA PLUS W/DEVICE KIT Use for testing bloodsugars three times daily as needed BLOOD GLUCOSE MONITORING SUPPL 15989795629 No Longer Active Tu Landeros MD Active SPIRONOLACTONE 25 MG TAB 0.5 tablet by mouth daily SPIRONOLACTONE 03845312066 No Longer Active Tu Landeros MD Active ALPRAZOLAM 0.5 MG TABS 1 tab every 6hrs as needed ALPRAZOLAM 12950660902 No Longer Active Tu Landeros MD Active AUGMENTIN 875-125 MG TAB 1 tab by mouth twice daily with food AMOXICILLIN-POT CLAVULANATE 51151423385 No Longer Active Tu Landeros MD Active PREDNISONE 20 MG TAB 2 tabs daily for 3 days, 1 tab daily for 3 days, 1/2 tab daily for 2 days PREDNISONE 06713634111 No Longer Active Tu Landeros MD Active XANAX 0.5 MG TABS 1 tablet every 6 hrs prn ALPRAZOLAM 84751000811 No Longer Active Tu Landeros MD Active PREDNISONE 20 MG TAB 2 tabs daily for 3 days, 1 tab daily for 3 days, 1/2 tab daily for 2 days PREDNISONE 91853474653 No Longer Active Tu Landeros MD Active TRIAMCINOLONE ACETONIDE 0.1 % OINT Apply to affected areas TID for up to 2 weeks TRIAMCINOLONE ACETONIDE 87469548971 No Longer Active Tu Landeros MD Active LORTAB 5 5-500 MG TABS 1/2 to 1 tablet by mouth every 4 hours as needed for pain HYDROCODONE-ACETAMINOPHEN 27550008798 No Longer Active Tu Landeros MD Active MULTIVITAMINS TABS Take one by mouth daily MULTIPLE VITAMIN 41387965208 No Longer Active Tu Landeros MD Active MELATONIN 5 MG TABS Take one by mouth daily MELATONIN 74118876126 No Longer Active Tu Landeros MD Active SOMA 350 MG TAB 1 po q 6 hours prn spasm CARISOPRODOL 06428837836 No Longer Active Tu Landeros MD Active MECLIZINE HCL 25 MG CHEW TAB 1 four times a day as needed for dizziness 08/05 MECLIZINE HCL 76316978193 No Longer Active Fab Morales DO Active ANGEL BREEZE 2 TEST DISK test tid prn GLUCOSE BLOOD 78884318216 No Longer Active Negra Scott RN Active REGLAN 10 MG TAB 1 po TID PRN Nausea METOCLOPRAMIDE HCL 91766066096 No Longer Active Tu Landeros MD Active METFORMIN HCL 500 MG TABS 1 PO BID METFORMIN HCL 61993624542 No Longer Active Tu Landeros MD Active AMBIEN 10 MG TAB 1 tab by mouth at bedtime as needed for sleep ZOLPIDEM TARTRATE 84403866793 No Longer Active Tu Landeros MD Active FLUOXETINE HCL 40 MG CAPS 1 po q day FLUOXETINE HCL 58772196507 No Longer Active Mayra Marcus Active TRILIPIX 135 MG CPDR 1 po qd CHOLINE FENOFIBRATE 45004262453 No Longer Active Tu Landeros MD Active AMBIEN 10 MG TAB 1 tab by mouth at bedtime as needed for sleep AMBIEN 10 MG TAB 039154 ZOLPIDEM TARTRATE Inactive METFORMIN HCL 500 MG TABS 1 PO BID METFORMIN HCL 500 MG TABS 864833 METFORMIN HCL Inactive REGLAN 10 MG TAB 1 po TID PRN Nausea REGLAN 10 MG TAB 697572 METOCLOPRAMIDE HCL Inactive MECLIZINE HCL 25 MG CHEW TAB 1 four times a day as needed for dizziness 08/05 MECLIZINE HCL 25 MG CHEW TAB 409653 MECLIZINE HCL Inactive SOMA 350 MG TAB 1 po q 6 hours prn spasm SOMA 350 MG TAB 626017 CARISOPRODOL Inactive MELATONIN 5 MG TABS Take one by mouth daily MELATONIN 5 MG TABS 076452 MELATONIN Inactive MULTIVITAMINS TABS Take one by mouth daily MULTIVITAMINS TABS MULTIPLE VITAMIN Inactive LORTAB 5 5-500 MG TABS 1/2 to 1 tablet by mouth every 4 hours as needed for pain LORTAB 5 5-500 MG TABS HYDROCODONE- ACETAMINOPHEN Inactive XANAX 0.5 MG TABS 1 tablet every 6 hrs prn XANAX 0.5 MG TABS 814908 ALPRAZOLAM Inactive AUGMENTIN 875-125 MG TAB 1 tab by mouth twice daily with food AUGMENTIN 875-125 MG TAB 064037 AMOXICILLIN-POT CLAVULANATE Inactive ALPRAZOLAM 0.5 MG TABS 1 tab every 6hrs as needed ALPRAZOLAM 0.5 MG TABS 379137 ALPRAZOLAM Inactive SPIRONOLACTONE 25 MG TAB 0.5 tablet by mouth daily SPIRONOLACTONE 25 MG TAB 233584 SPIRONOLACTONE Inactive ACCU-CHEK KEYONA PLUS W/DEVICE KIT Use for testing bloodsugars three times daily as needed ACCU-CHEK KEYONA PLUS W/DEVICE KIT BLOOD GLUCOSE MONITORING SUPPL Inactive ACCU-CHEK KEYONA PLUS STRP Use for testing bloodsugars three times daily as needed ACCU-CHEK KEYONA PLUS STRP GLUCOSE BLOOD Inactive ACCU-CHEK FASTCLIX LANCETS MISC Use to check bloodsugar three times daily as needed ACCU-CHEK FASTCLIX LANCETS MISC 31352374720 [facility] Inactive TRAMADOL HCL 50 MG TABS 1 tablets every 6 hours as needed for pain TRAMADOL HCL 50 MG TABS 800008 TRAMADOL HCL Inactive VENLAFAXINE HCL 75 MG TABS 1 po BID VENLAFAXINE HCL 75 MG TABS 348884 VENLAFAXINE HCL Inactive HYDROCODONE-ACETAMINOPHEN 5-500 MG TABS take one po Q 4-6 hours prn HYDROCODONE-ACETAMINOPHEN 5-500 MG TABS HYDROCODONE- ACETAMINOPHEN Inactive LORTAB 5 5-500 MG TABS 1/2 to 1 tablet by mouth every 4 hours as needed for pain LORTAB 5 5-500 MG TABS HYDROCODONE- ACETAMINOPHEN Inactive LAMISIL 250 MG TAB 1 po qd LAMISIL 250 MG TAB 435441 TERBINAFINE HCL Inactive VENLAFAXINE HCL 37.5 MG TABS 1 po BID VENLAFAXINE HCL 37.5 MG TABS 449455 VENLAFAXINE HCL Inactive CIPRO 500 MG TAB 1 tablet by mouth twice daily CIPRO 500 MG TAB 110243 CIPROFLOXACIN HCL Inactive VENLAFAXINE HCL 75 MG TABS 1 po BID VENLAFAXINE HCL 75 MG TABS 030272 VENLAFAXINE HCL Inactive SIMVASTATIN 40 MG TABS Take one by mouth daily SIMVASTATIN 40 MG TABS 998175 SIMVASTATIN Inactive OMEPRAZOLE 20 MG TBEC 1 PO 30 MIN BEFORE 1ST MEAL OMEPRAZOLE 20 MG TBEC 623411 OMEPRAZOLE Inactive FENOFIBRATE 145 MG TABS 1 po qd FENOFIBRATE 145 MG TABS 989860 FENOFIBRATE Inactive BACTRIM DS 800-160 MG TABS 1 bid x 14 day start 09-28-13 BACTRIM DS 800-160 MG TABS 656054 SULFAMETHOXAZOLE-TRIMETHOPRIM Inactive B-12 100 MCG TABS Take one by mouth daily B-12 100 MCG TABS CYANOCOBALAMIN Inactive GABAPENTIN 100 MG CAPS 1 po bid GABAPENTIN 100 MG CAPS 150068 GABAPENTIN Inactive HYDROCODONE-ACETAMINOPHEN 5-325 MG TABS 1 tab by mouth every 6 hours as needed for pain HYDROCODONE-ACETAMINOPHEN 5-325 MG TABS 829325 HYDROCODONE-ACETAMINOPHEN Inactive CIPRO 500 MG TABS 1 bid x 14 days start 09-28-13 CIPRO 500 MG TABS 007311 CIPROFLOXACIN HCL Inactive ALIGN 4 MG CAPS [...] as needed DICLOFENAC SODIUM 50 MG TBEC 296785 DICLOFENAC SODIUM Inactive PREDNISONE 20 MG TAB 2 tablets once daily for 2 days, then 1 tablet once daily for 2 days PREDNISONE 20 MG TAB 688503 PREDNISONE Inactive TRUEDRAW LANCING DEVICE MISC Test twice a day dx 250.0 TRUEDRAW LANCING DEVICE MISC LANCET DEVICES Inactive TRUERESULT BLOOD GLUCOSE W/DEVICE KIT test blood sugar twice daily dx 250.00 TRUERESULT BLOOD GLUCOSE W/DEVICE KIT BLOOD GLUCOSE MONITORING SUPPL Inactive FLONASE 50 MCG/ACT SUSP 1 spray each nostril twice daily until bottle empty FLONASE 50 MCG/ACT SUSP 9283319 FLUTICASONE PROPIONATE Inactive VENTOLIN HFA 108 (90 BASE) MCG/ACT AERS 1-2 puffs every 4 hours if needed for cough/congestion VENTOLIN HFA 108 (90 BASE) MCG/ACT AERS ALBUTEROL SULFATE Inactive REQUIP 2 MG TABS Take one tablet at bedtime prn REQUIP 2 MG TABS 999195 ROPINIROLE HCL Inactive SUPER B COMPLEX/VITAMIN C TABS 1 qd SUPER B COMPLEX/ VITAMIN C TABS 53031631946 B COMPLEX-C Inactive TRUEDRAW LANCING DEVICE MISC test blood sugar twice daily dx: 250.00 TRUEDRAW LANCING DEVICE MISC LANCET DEVICES Inactive TRUETEST TEST INVITR STRP test blood sugar twice daily. DX 250.0 TRUETEST TEST INVITR STRP GLUCOSE BLOOD Inactive TRIAMCINOLONE ACETONIDE 0.1 % OINT Apply to affected areas TID for up to 2 weeks TRIAMCINOLONE ACETONIDE 0.1 % OINT 5316808 TRIAMCINOLONE ACETONIDE Inactive PREDNISONE 20 MG TAB 2 tabs daily for 3 days, 1 tab daily for 3 days, 1/2 tab daily for 2 days PREDNISONE 20 MG TAB 290068 PREDNISONE Inactive PREDNISONE 20 MG TAB 2 tabs daily for 3 days, 1 tab daily for 3 days, 1/2 tab daily for 2 days PREDNISONE 20 MG TAB 552176 PREDNISONE Inactive BACTRIM DS 800-160 MG TABS 1 po BID x 7 days BACTRIM DS 800-160 MG TABS 064686 SULFAMETHOXAZOLE-TRIMETHOPRIM Inactive ZITHROMAX 250 MG TAB 2 po today, then 1 po q days 2-5 ZITHROMAX 250 MG TAB 4381258 AZITHROMYCIN Inactive Advance Directives Directive Description Start Date DISCUSSED WITH PATIENT -- NO DECISION MADE Immunizations Vaccine Administration Date Value Standard Description Seasonal influenza vaccine, injectable, containing preservative, for > 3 years old (Afluria, FluLaval, Fluzone, Fluvirin, Fluarix, Agriflu(>=18 yo)) Fluzone (>3 yrs.) [[id number]] Influenza, seasonal, injectable influenza immunization (Flu Vax) has been administered 02/22/2012 influenza virus vaccine, unspecified formulation Seasonal influenza vaccine, injectable, containing preservative, for > 3 years old (Afluria, FluLaval, Fluzone, Fluvirin, Fluarix, Agriflu(>=18 yo)) Fluzone (>3 yrs.) [[id number]] Influenza, seasonal, injectable Vital Signs Date Name [...] Magnesium - Chemistry sodium, serum 143 mmol/L 308-134 6922/01/10 creatinine, serum 1.06 mg/dL 0.55-1.30 alanine aminotransferase (SGPT), serum 42 U/L 12-78 aspartate aminotransferase (SGOT), serum 32 U/L 15-37 calcium, serum 9.3 mg/dL 8.5-10.1 bilirubin, serum, total 0.20 mg/dL 0.00-1.00 cholesterol, serum 177 mg/dL 369-650 5503/01/10 triglyceride, serum, fasting 320 mg/dL 30-200 HDL cholesterol, serum 46 mg/dL 32-96 LDL cholesterol, serum 67 mg/dL 0-130 carbon dioxide, venous blood 28.0 mmol/L 21.0-32.0 potassium, serum 4.5 mmol/L 3.5-5.2 chloride, serum 104 mmol/L 98-107 blood glucose 158 mg/dL 65-110 urea nitrogen, blood 23 mg/dL 7-18 Lab Report: COMPREHENSIVE METABOLIC PANEL, LIPID PANEL, HEMOGLOBIN A1c - Chemistry cholesterol, serum 135 mg/dL 729-254 5482/05/17 HDL cholesterol, serum 41 mg/dL > OR=46 [...] 4.3 mmol/L 3.5-5.2 sodium, serum 140 mmol/L 226-528 4985/09/07 hemoglobin A1C, blood, as % of total hemoglobin 7.4 % 4.3-6.0 Lab Report: MicroAlb Random w/creat/6517 - Urinalysis microalbumin/total urine volume 21 mg/L Units converted. See lab report for original value. microalbumin/creatinine ratio, urine 11 MCG/MG CREAT mg/L <30 Encounters Code Encounter Date Provider Facility CPT-93419 Level 3 Est. Patient 13:33:09 CDT Tu Landeros MD [facility] CPT-26394 Level 4 Est. Patient 14:29:21 CDT Tu Landeros MD [facility] CPT-54966 Level 4 Est. Patient 09:08:17 PAPER ROLL MACHINE OPERATOR Tu Landeros MD [facility] CPT-80746 Level 4 Est. Patient 14:40:19 CDT Tu Landeros MD [facility] CPT-20349 Level 4 Est. Patient 14:06:04 PAPER ROLL MACHINE OPERATOR Tu Landeros MD [facility] CPT-85670 Level 3 Est. Patient 14:05:18 PAPER ROLL MACHINE OPERATOR Tu Landeros MD [facility] CPT-80266 Level 3 Est. Patient 10:06:54 PAPER ROLL MACHINE OPERATOR Miranda Suresh APRN [facility] CPT-53188 Level 4 Est. Patient 13:50:18 PAPER ROLL MACHINE OPERATOR Tu Landeros MD [facility] CPT-27707 Level 3 Est. Patient 10:30:04 CDT Tu Landeros MD [facility] CPT-19581 Level 4 Est. Patient 11:03:38 CDT Tu Landeros MD [facility] CPT-48211 Level 3 Est. Patient 10:20:44 CDT Fab Morales DO [facility] CPT-28159 Level 4 Est. Patient 14:38:57 CDT Tu Landeros MD [facility] CPT-22787 Level 4 Est. Patient 14:27:39 PAPER ROLL MACHINE OPERATOR Tu Landeros MD [facility] CPT-41327 Level 4 Est. Patient 09:45:25 CDT Tu Landeros MD [facility] CPT-25322 Level 4 Est. Patient 09:05:20 PAPER ROLL MACHINE OPERATOR Tu Landeros MD [facility] CPT-52656 Level 4 Est. Patient 14:09:06 CDT Tu Landeros MD [facility] CPT-64573 Level 3 Est. Patient 13:36:54 CDT Tu Landeros MD [facility] CPT-52661 Level 3 Est. Patient 08:59:14 CDT Tu Landeros MD [facility] CPT-23278 Level 3 Est. Patient 13:48:35 CDT Fab Morales DO [facility] CPT-83892 Level 4 Est. Patient 10:05:48 CDT Tu Landeros MD [facility] CPT-90678 Level 3 Est. Patient 13:38:42 CDT Marek BANKS [facility] CPT-27215 Level 5 Est. Patient 08:08:39 CDT Jerrica FRANCIS [facility] CPT-56638 Level 4 Est. Patient 14:23:38 CDT Tu Landeros MD [facility] CPT-54028 Level 3 Est. Patient 11:44:04 CDT Tu Landeros MD [facility] CPT-60962 Level 3 Est. Patient 11:03:20 PAPER ROLL MACHINE OPERATOR Tu Landeros MD [facility] CPT-67372 Level 3 Est. Patient 11:03:14 PAPER ROLL MACHINE OPERATOR Tu Landeros MD [facility] CPT-24866 Level 3 Est. Patient 12:42:49 CDT Tu Landeros MD [facility] CPT-66133 Level 3 Est. Patient 11:52:06 CDT Tu Landeros MD [facility] CPT-87474 Level 3 Est. Patient 13:58:11 CDT Tu Landeros MD [facility] CPT-65318 Level 3 Est. Patient 17:50:07 CDT Fab Morales DO [facility] CPT-38245 Level 3 Est. Patient 12:06:29 CDT Elvira Cervantes MD, PhD [facility] CPT-18873 Level 3 Est. Patient 15:50:32 CDT Tu Landeros MD [facility] CPT-82528 Level 4 Est. Patient 16:08:29 CDT Tu Landeros MD [facility] CPT-16193 Level 3 Est. Patient 16:04:19 CDT Tu Landeros MD [facility] CPT-37554 Level 3 Est. Patient 11:22:30 PAPER ROLL MACHINE OPERATOR Tu Landeros MD [facility] CPT-58529 Level 4 Est. Patient 16:24:02 PAPER ROLL MACHINE OPERATOR Tu Landeros MD [facility] CPT-34486 Level 3 Est. Patient 17:21:23 PAPER ROLL MACHINE OPERATOR Tu Landeros MD [facility] Procedures Code Procedure Name Date Entry Date Standard Description CPT-25157 Shoulder, right, comp min 2V - XRAY USE ONLY 13:50:22 CDT CPT-G0009 Administration of Pneumococcal Vaccine 15:08:26 CDT CPT-07925 Prevnar 13 Intramuscular Suspension 15:08:26 CDT 10/08 CPT-G0439 Subsequent Annual Wellness Exam 14:29:22 CDT CPT-02983 Venipuncture Draw Fee 13:15:35 CDT CPT-73343 Magnesium - LAB USE ONLY 11:14:20 PAPER ROLL MACHINE OPERATOR CPT-86584 Lipid - LAB USE ONLY 11:14:20 PAPER ROLL MACHINE OPERATOR CPT-59085 HGBA1C - LAB USE ONLY 11:14:20 PAPER ROLL MACHINE OPERATOR CPT-25160 CMP - LAB USE ONLY 11:14:19 PAPER ROLL MACHINE OPERATOR CPT-20047 CBC - LAB USE ONLY 11:14:19 PAPER ROLL MACHINE OPERATOR CPT-24257 Venipuncture Draw Fee 11:14:18 PAPER ROLL MACHINE OPERATOR CPT-16217 First Vx - Ix admin for Medicare patients 16:46:52 CDT CPT-81893 Fluzone Preservative Free Intramuscular Suspension 16:46 :51 CDT CPT-52995 CBC - LAB USE ONLY 17:14:46 CDT CPT-98480 HGBA1C - LAB USE ONLY 17:14:46 CDT CPT-54579 Venipuncture Draw Fee 17:14:46 CDT CPT-G0438 Initial Annual Wellness Exam 14:13:04 CDT CPT-32624 Breathing Tx 10:06:54 PAPER ROLL MACHINE OPERATOR CPT-13345 Postop F/U Visit 10:02:45 CDT CPT-LR Lesion Removal 09:02:56 CDT CPT-JTINJ Asp/Joint Injection 15:51:27 PAPER ROLL MACHINE OPERATOR CPT-OV Office Visit 15:52:02 PAPER ROLL MACHINE OPERATOR CPT-OV Office Visit 15:45:11 CDT CPT-000 Give Zostavax 14:09:06 CDT CPT-06707 Administration single or combination vaccine inc oral 15 :19:04 CDT CPT-10405 Zoster Vaccine (Zostavax) 15:19:04 CDT CPT-27338 Administration single or combination vaccine inc oral 20 :51:03 CDT CPT-01733 Influenza split virus > age 3 20:51:03 CDT CPT-64516 No Charge Offi Visit 14:52:03 CDT CPT-OV Office Visit 14:57:43 CDT CPT-OV Office Visit 15:22:32 CDT CPT-47488 Administration single or combination vaccine inc oral 11 :33:15 CDT CPT-69933 Influenza split virus > age 3 11:33:15 CDT
[2018-04-25] MEDS ORDERED: IOHEXOL 350 MG/ML 150 ML (OMNIPAQUE 350) VIAL IV ONE (15:15)
[2018-04-25] MEDS ORDERED: RECEIVED CONTRAST (Hold Metformin) IV SCH (15:15)
[2018-04-25] MEDS ORDERED: NS 250 ML (IVPB) BAG IV ONE (15:15)
--- OUTSIDE RECORDS SUMMARY | 2018-04-25 15:19 | XMS REPORT | Clinical Summary ---
Author Author Admin, SACHI Clemons [facility] Address Unknown Phone Unavailable Allergies, Adverse Reactions, [...] PRESSURE ULCER UNSPECIFIED SITE 707.00 Resolved Tu aLnderos MD Pressure ulcer, unspecified site LOCALIZED SUPERFICIAL [...] POSITIONAL VERTIGO ICD-386.11 Inactive Tu Landeros MD KNEE PAIN ICD-719.46 Inactive Tu Landeros MD CONTUSION OF UNSPECIFIED SITE ICD-924.9 Inactive Tu Landeros MD CARPAL TUNNEL SYNDROME ICD-354.0 Inactive Tu Landeros MD LOCALIZED SUPERFICIAL SWELLING MASS OR LUMP ICD-782.2 Inactive Tu Landeros MD ARTHRITIS ICD-716.90 Inactive Tu Landeros MD ONYCHOMYCOSIS ICD-110.1 Inactive Tu Landeros MD Open wound of abdominal wall, anterior, complicated ICD-879.3 Inactive Tu Landeros MD PRESSURE ULCER UNSPECIFIED SITE ICD-707.00 Inactive Tu Landeros MD Open wound of other and unspecified parts of trunk, complicated ICD-879.7 Inactive Tu Landeros MD Knee pain, left, acute ICD-719.46 Inactive Tu Landeros MD Ear pain, bilateral ICD-388.70 Inactive Tu Landeros MD Upper respiratory infection, viral ICD-465.9 Inactive Shaun Sy MD Medication List Medication Instructions Start Date Stop Date Generic Name NDC Status Provider Patient Instruction SIMVASTATIN 40 MG TABS 0.5 tab daily at bedtime SIMVASTATIN 38887199080 Active Tu Landeros MD Active TRUERESULT BLOOD GLUCOSE W/DEVICE KIT test blood sugar twice daily dx 250.00 BLOOD GLUCOSE MONITORING SUPPL 16734444443 No Longer Active Tu Landeros MD Active TRUEDRAW LANCING DEVICE MISC Test twice a day dx 250.0 LANCET DEVICES 70268876285 No Longer Active Tu Landeros MD Active PREDNISONE 20 MG TAB 2 tablets once daily for 2 days, then 1 tablet once daily for 2 days PREDNISONE 79405273066 No Longer Active Tu Landeros MD Active FLONASE 50 MCG/ACT SUSP 1 spray each nostril twice daily until bottle empty FLUTICASONE PROPIONATE 58346351055 Active Fab Morales DO Active DICLOFENAC SODIUM 50 MG TBEC 1 tablet by mouth three times a day as needed DICLOFENAC SODIUM 54830983997 No Longer Active Fab Morales DO Active METFORMIN HCL 850 MG TABS 1 tablet by mouth twice daily METFORMIN HCL 11107491094 Active Tu Landeros MD Active TRUEDRAW LANCING DEVICE MISC test blood sugar twice daily dx: 250.00 LANCET DEVICES 34070603051 Active Tu Landeros MD Active TRUETEST TEST INVITR STRP test blood sugar twice daily. DX 250.0 GLUCOSE BLOOD 45645686350 Active Tu Landeros MD Active EMBRACE BLOOD GLUCOSE TEST STRP test blood sugar twice daily DX 250.0 2014 GLUCOSE BLOOD 85498096467 No Longer Active Tu Landeros MD Active TRUETEST TEST STRP test blood sugar three times daily dx: 250.00 GLUCOSE BLOOD 12809648679 No Longer Active Suzebianca Nicole RMA Active TRUERESULT BLOOD GLUCOSE W/DEVICE KIT use to test blood sugar tid dx: 250.00 BLOOD GLUCOSE MONITORING SUPPL 60159787701 No Longer Active Suze Corey RMA Active ALIGN 4 MG CAPS 1 tid PROBIOTIC PRODUCT 21914214607 No Longer Active Shaun Sy MD Active CIPRO 500 MG TABS 1 bid x 14 days start 09-28-13 CIPROFLOXACIN HCL 71926074758 No Longer Active Shaun Sy MD Active TRAMADOL HCL 50 MG TABS 1-2 tablets every 6 hours as needed for pain TRAMADOL HCL 06372865892 Active Tu Landeros MD Active HYDROCODONE-ACETAMINOPHEN 5-325 MG TABS 1 tab by mouth every 6 hours as needed for pain HYDROCODONE-ACETAMINOPHEN 62632936754 No Longer Active Tu Landeros MD Active OMEPRAZOLE 20 MG CPDR 1 po q a.m. OMEPRAZOLE 37341748884 Active Elvira Cervantes MD PhD Active GABAPENTIN 100 MG CAPS 1 po bid GABAPENTIN 23622314222 No Longer Active Tu Landeros MD Active B-12 100 MCG TABS Take one by mouth daily CYANOCOBALAMIN 75510634055 No Longer Active Tu Landeros MD Active GABAPENTIN 100 MG CAPS by mouth twice a day GABAPENTIN 39493467523 Active Tu Landeros MD Active BACTRIM DS 800-160 MG TABS 1 bid x 14 day start 09-28-13 SULFAMETHOXAZOLE-TRIMETHOPRIM 39151492903 No Longer Active Tu Landeros MD Active CARVEDILOL 12.5 MG TABS 1 po BID CARVEDILOL 96906499591 Active Tu Landeros MD Active SUPER B COMPLEX/VITAMIN C TABS 1 qd B COMPLEX-C 03523938042 Active JASPREET Perez Active TRILIPIX 135 MG CPDR 1 q hs CHOLINE FENOFIBRATE 25743950387 Active Tu Landeros MD Active FENOFIBRATE 145 MG TABS 1 po qd FENOFIBRATE 02419280957 No Longer Active JASPREET Perez Active OMEPRAZOLE 20 MG TBEC 1 PO 30 MIN BEFORE 1ST MEAL OMEPRAZOLE 66047575370 No Longer Active JASPREET Perez Active SIMVASTATIN 40 MG TABS Take one by mouth daily SIMVASTATIN 28322558944 No Longer Active JASPREET Perez Active VENLAFAXINE HCL 37.5 MG TABS 1 bid VENLAFAXINE HCL 39127346422 Active Tu Landeros MD Active VENLAFAXINE HCL 75 MG TABS 1 po BID VENLAFAXINE HCL 40987888684 No Longer Active JASPREET Perez Active CIPRO 500 MG TAB 1 tablet by mouth twice daily CIPROFLOXACIN HCL 89362089940 No Longer Active Tu Landeros MD Active VENLAFAXINE HCL 37.5 MG TABS 1 po BID VENLAFAXINE HCL 42333365609 No Longer Active Suze Corey RMA Active CVS STOOL SOFTENER 100 MG CAPS 1 tab daily DOCUSATE SODIUM 58363271764 Active Tu Landeros MD Active LAMISIL 250 MG TAB 1 po qd TERBINAFINE HCL 68642154526 No Longer Active Tu Landeros MD Active LORTAB 5 5-500 MG TABS 1/2 to 1 tablet by mouth every 4 hours as needed for pain HYDROCODONE-ACETAMINOPHEN 16297785427 No Longer Active Tu Landeros MD Active ENALAPRIL MALEATE 20 MG TABS 1.5 po qd ENALAPRIL MALEATE 13794878307 Active Tu Landeros MD Active HYDROCODONE-ACETAMINOPHEN 5-500 MG TABS take one po Q 4-6 hours prn HYDROCODONE-ACETAMINOPHEN 15329555024 No Longer Active Tu Landeros MD Active BACTRIM DS 800-160 MG TABS 1 po BID x 7 days SULFAMETHOXAZOLE-TRIMETHOPRIM 48128137238 No Longer Active Tu Landeros MD Active VENLAFAXINE HCL 75 MG TABS 1 po BID VENLAFAXINE HCL 77303793099 No Longer Active Elvira Cervantes MD PhD Active TRAMADOL HCL 50 MG TABS 1 tablets every 6 hours as needed for pain TRAMADOL HCL 78084617216 No Longer Active Tu Landeros MD Active ACCU-CHEK FASTCLIX LANCETS MISC Use to check bloodsugar three times daily as needed LANCETS 25368898957 No Longer Active Tu Landeros MD Active ACCU-CHEK KEYONA PLUS STRP Use for testing bloodsugars three times daily as needed GLUCOSE BLOOD 99394881937 No Longer Active Tu Landeros MD Active ACCU-CHEK KEYONA PLUS W/DEVICE KIT Use for testing bloodsugars three times daily as needed BLOOD GLUCOSE MONITORING SUPPL 61264327965 No Longer Active Tu Landeros MD Active SPIRONOLACTONE 25 MG TAB 0.5 tablet by mouth daily SPIRONOLACTONE 96639479242 No Longer Active Tu Landeros MD Active ALPRAZOLAM 0.5 MG TABS 1 tab every 6hrs as needed ALPRAZOLAM 86126659615 No Longer Active Tu Landeros MD Active AUGMENTIN 875-125 MG TAB 1 tab by mouth twice daily with food AMOXICILLIN-POT CLAVULANATE 53589331792 No Longer Active Tu Landeros MD Active PREDNISONE 20 MG TAB 2 tabs daily for 3 days, 1 tab daily for 3 days, 1/2 tab daily for 2 days PREDNISONE 48963583022 No Longer Active Tu Landeros MD Active XANAX 0.5 MG TABS 1 tablet every 6 hrs prn ALPRAZOLAM 18976805315 No Longer Active Tu Landeros MD Active PREDNISONE 20 MG TAB 2 tabs daily for 3 days, 1 tab daily for 3 days, 1/2 tab daily for 2 days PREDNISONE 28208462886 No Longer Active Tu Landeros MD Active TRIAMCINOLONE ACETONIDE 0.1 % OINT Apply to affected areas TID for up to 2 weeks TRIAMCINOLONE ACETONIDE 04498122466 No Longer Active Tu Landeros MD Active LORTAB 5 5-500 MG TABS 1/2 to 1 tablet by mouth every 4 hours as needed for pain HYDROCODONE-ACETAMINOPHEN 38570034122 No Longer Active Tu Landeros MD Active MULTIVITAMINS TABS Take one by mouth daily MULTIPLE VITAMIN 68772935273 No Longer Active Tu Landeros MD Active MELATONIN 5 MG TABS Take one by mouth daily MELATONIN 46617343622 No Longer Active Tu Landeros MD Active SOMA 350 MG TAB 1 po q 6 hours prn spasm CARISOPRODOL 51622635390 No Longer Active Tu Landeros MD Active MECLIZINE HCL 25 MG CHEW TAB 1 four times a day as needed for dizziness 08/05 MECLIZINE HCL 37888400329 No Longer Active Fab Morales DO Active ANGEL NIKKOEZE 2 TEST DISK test tid prn GLUCOSE BLOOD 63825942016 No Longer Active Negra Scott RN Active REGLAN 10 MG TAB 1 po TID PRN Nausea METOCLOPRAMIDE HCL 96972410061 No Longer Active Tu Landeros MD Active METFORMIN HCL 500 MG TABS 1 PO BID METFORMIN HCL 33853926092 No Longer Active Tu Landeros MD Active AMBIEN 10 MG TAB 1 tab by mouth at bedtime as needed for sleep ZOLPIDEM TARTRATE 93308318458 No Longer Active Tu Landeros MD Active FLUOXETINE HCL 40 MG CAPS 1 po q day FLUOXETINE HCL 27140674093 No Longer Active Mayra [place] Active FISH OIL 1000 MG CAPS Take one by mouth daily OMEGA-3 FATTY ACIDS 99642343071 Active Tu Landeros MD Active GLUCOSAMINE 500 MG TABS Take 2 tab po qd GLUCOSAMINE 26258428019 Active Tu Landeros MD Active TRILIPIX 135 MG CPDR 1 po qd CHOLINE FENOFIBRATE 71203684016 No Longer Active Tu Landeros MD Active ASPIRIN 81 MG CHEW TAB 1 tablet by mouth daily ASPIRIN 68726461059 Active Tu Landeros MD Active FUROSEMIDE 40 MG TAB 1 tablet by mouth daily FUROSEMIDE 18353619278 Active Tu Landeros MD Active REQUIP 2 MG TABS Take one tablet at bedtime prn ROPINIROLE HCL 38739250012 Active Tu Landeros MD Active KLOR-CON 10 10 MEQ CR-TABS TAKE 2 TABS DAILY POTASSIUM CHLORIDE 41670075357 Active Tu Landeros MD Active AMBIEN 10 MG TAB 1 tab by mouth at bedtime as needed for sleep AMBIEN 10 MG TAB 630821 ZOLPIDEM TARTRATE Inactive METFORMIN HCL 500 MG TABS 1 PO BID METFORMIN HCL 500 MG TABS 993214 METFORMIN HCL Inactive REGLAN 10 MG TAB 1 po TID PRN Nausea REGLAN 10 MG TAB 115242 METOCLOPRAMIDE HCL Inactive MECLIZINE HCL 25 MG CHEW TAB 1 four times a day as needed for dizziness 08/05 MECLIZINE HCL 25 MG CHEW TAB 734718 MECLIZINE HCL Inactive SOMA 350 MG TAB 1 po q 6 hours prn spasm SOMA 350 MG TAB 129341 CARISOPRODOL Inactive MELATONIN 5 MG TABS Take one by mouth daily MELATONIN 5 MG TABS 407089 MELATONIN Inactive MULTIVITAMINS TABS Take one by mouth daily MULTIVITAMINS TABS MULTIPLE VITAMIN Inactive LORTAB 5 5-500 MG TABS 1/2 to 1 tablet by mouth every 4 hours as needed for pain LORTAB 5 5-500 MG TABS HYDROCODONE- ACETAMINOPHEN Inactive XANAX 0.5 MG TABS 1 tablet every 6 hrs prn XANAX 0.5 MG TABS 078772 ALPRAZOLAM Inactive AUGMENTIN 875-125 MG TAB 1 tab by mouth twice daily with food AUGMENTIN 875-125 MG TAB 710799 AMOXICILLIN-POT CLAVULANATE Inactive ALPRAZOLAM 0.5 MG TABS 1 tab every 6hrs as needed ALPRAZOLAM 0.5 MG TABS 063299 ALPRAZOLAM Inactive SPIRONOLACTONE 25 MG TAB 0.5 tablet by mouth daily SPIRONOLACTONE 25 MG TAB 506135 SPIRONOLACTONE Inactive ACCU-CHEK KEYONA PLUS W/DEVICE KIT Use for testing bloodsugars three times daily as needed ACCU-CHEK KEYONA PLUS W/DEVICE KIT BLOOD GLUCOSE MONITORING SUPPL Inactive ACCU-CHEK KEYONA PLUS STRP Use for testing bloodsugars three times daily as needed ACCU-CHEK KEYONA PLUS STRP GLUCOSE BLOOD Inactive ACCU-CHEK FASTCLIX LANCETS MISC Use to check bloodsugar three times daily as needed ACCU-CHEK FASTCLIX LANCETS MISC 60478740983 LANCETS Inactive TRAMADOL HCL 50 MG TABS 1 tablets every 6 hours as needed for pain TRAMADOL HCL 50 MG TABS 345238 TRAMADOL HCL Inactive VENLAFAXINE HCL 75 MG TABS 1 po BID VENLAFAXINE HCL 75 MG TABS 533084 VENLAFAXINE HCL Inactive HYDROCODONE-ACETAMINOPHEN 5-500 MG TABS take one po Q 4-6 hours prn HYDROCODONE-ACETAMINOPHEN 5-500 MG TABS HYDROCODONE- ACETAMINOPHEN Inactive LORTAB 5 5-500 MG TABS 1/2 to 1 tablet by mouth every 4 hours as needed for pain LORTAB 5 5-500 MG TABS HYDROCODONE- ACETAMINOPHEN Inactive LAMISIL 250 MG TAB 1 po qd LAMISIL 250 MG TAB 558847 TERBINAFINE HCL Inactive VENLAFAXINE HCL 37.5 MG TABS 1 po BID VENLAFAXINE HCL 37.5 MG TABS 298229 VENLAFAXINE HCL Inactive CIPRO 500 MG TAB 1 tablet by mouth twice daily CIPRO 500 MG TAB 752637 CIPROFLOXACIN HCL Inactive VENLAFAXINE HCL 75 MG TABS 1 po BID VENLAFAXINE HCL 75 MG TABS 189306 VENLAFAXINE HCL Inactive SIMVASTATIN 40 MG TABS Take one by mouth daily SIMVASTATIN 40 MG TABS 792113 SIMVASTATIN Inactive OMEPRAZOLE 20 MG TBEC 1 PO 30 MIN BEFORE 1ST MEAL OMEPRAZOLE 20 MG TBEC 688111 OMEPRAZOLE Inactive FENOFIBRATE 145 MG TABS 1 po qd FENOFIBRATE 145 MG TABS 991957 FENOFIBRATE Inactive BACTRIM DS 800-160 MG TABS 1 bid x 14 day start 09-28-13 BACTRIM DS 800-160 MG TABS SULFAMETHOXAZOLE-TRIMETHOPRIM Inactive B-12 100 MCG TABS Take one by mouth daily B-12 100 MCG TABS CYANOCOBALAMIN Inactive GABAPENTIN 100 MG CAPS 1 po bid GABAPENTIN 100 MG CAPS 952662 GABAPENTIN Inactive HYDROCODONE-ACETAMINOPHEN 5-325 MG TABS 1 tab by mouth every 6 hours as needed for pain HYDROCODONE-ACETAMINOPHEN 5-325 MG TABS 775341 HYDROCODONE-ACETAMINOPHEN Inactive CIPRO 500 MG TABS 1 bid x 14 days start -814 CIPRO 500 MG TABS 187279 CIPROFLOXACIN HCL Inactive ALIGN 4 MG CAPS [...] as needed DICLOFENAC SODIUM 50 MG TBEC 418863 DICLOFENAC SODIUM Inactive PREDNISONE 20 MG TAB 2 tablets once daily for 2 days, then 1 tablet once daily for 2 days PREDNISONE 20 MG TAB 847634 PREDNISONE Inactive TRUEDRAW LANCING DEVICE MISC Test twice a day dx 250.0 TRUEDRAW LANCING DEVICE MISC LANCET DEVICES Inactive TRUERESULT BLOOD GLUCOSE W/DEVICE KIT test blood sugar twice daily dx 250.00 TRUERESULT BLOOD GLUCOSE W/DEVICE KIT BLOOD GLUCOSE MONITORING SUPPL Inactive TRIAMCINOLONE ACETONIDE 0.1 % OINT Apply to affected areas TID for up to 2 weeks TRIAMCINOLONE ACETONIDE 0.1 % OINT 6369988 TRIAMCINOLONE ACETONIDE Inactive PREDNISONE 20 MG TAB 2 tabs daily for 3 days, 1 tab daily for 3 days, 1/2 tab daily for 2 days PREDNISONE 20 MG TAB 621599 PREDNISONE Inactive PREDNISONE 20 MG TAB 2 tabs daily for 3 days, 1 tab daily for 3 days, 1/2 tab daily for 2 days PREDNISONE 20 MG TAB 926586 PREDNISONE Inactive BACTRIM DS 800-160 MG TABS 1 po BID x 7 days BACTRIM DS 800-160 MG TABS SULFAMETHOXAZOLE-TRIMETHOPRIM Inactive Immunizations Vaccine Administration Date Value Standard Description Seasonal influenza vaccine, injectable, containing preservative, for > 3 years old (Afluria, FluLaval, Fluzone, Fluvirin, Fluarix, Agriflu(>=18 yo)) Fluzone (>3 yrs.) [[id number]] Influenza, seasonal, injectable influenza immunization (Flu Vax) has been administered 02/22/2012 influenza virus vaccine, unspecified formulation Seasonal influenza vaccine, injectable, containing preservative, for > 3 years old (Afluria, FluLaval, Fluzone, Fluvirin, Fluarix, Agriflu(>=18 yo)) Fluzone (>3 yrs.) [[id number]] Influenza, seasonal, injectable Vital Signs Date Name [...] CBC - Chemistry sodium, serum 143 mmol/L 141-741 4890/03/10 potassium, serum 4.9 mmol/L 3.5-5.2 chloride, serum [...] 0.30 mg/dL 0.00-1.00 cholesterol, serum 111 mg/dL 510-732 0217/07/28 triglyceride, serum, fasting 177 mg/dL 30-200 HDL cholesterol, serum 32 mg/dL 32-96 LDL cholesterol, serum 44 mg/dL 0-130 Lab Report: [id number] - Chemistry hemoglobin A1C, blood, as % of total hemoglobin 6.8 % 4.3-6.0 hemoglobin A1C, blood, as % of total hemoglobin 6.6 % 4.3-6.0 Lab Report: LH/Adult/615, FSH/Adult/470 - Chemistry luteinizing hormone, serum 1.3 m[iU]/mL follicle stimulating hormone, serum 5.5 m[iU]/mL Office Visit: Abdominal Wound - Chemistry cholesterol, target level 200 mg/dL triglyceride, target level 200 mg/dL HDL cholesterol, serum, target level 35 mg/dL LDL target level 100 mg/dL Encounters Code Encounter Date Provider Facility CPT-91102 Level 4 Est. Patient 11:03:38 CDT Tu Landeros MD [facility] CPT-31870 Level 3 Est. Patient 10:20:44 CDT Fab Morales DO [facility] CPT-55525 Level 4 Est. Patient 14:38:57 CDT Tu Landeros MD [facility] CPT-34230 Level 4 Est. Patient 14:27:39 ASSISTANCE COORDINATOR Tu Landeros MD [facility] CPT-29518 Level 4 Est. Patient 09:45:25 CDT Tu Landeros MD [facility] CPT-99638 Level 4 Est. Patient 09:05:20 ASSISTANCE COORDINATOR Tu Landeros MD [facility] CPT-15093 Level 4 Est. Patient 14:09:06 CDT Tu Landeros MD [facility] CPT-28914 Level 3 Est. Patient 13:36:54 CDT Tu Landeros MD [facility] CPT-99988 Level 3 Est. Patient 08:59:14 CDT Tu Landeros MD [facility] CPT-79627 Level 3 Est. Patient 13:48:35 CDT Fab Morales DO [facility] CPT-81632 Level 4 Est. Patient 10:05:48 CDT Tu Landeros MD [facility] CPT-55115 Level 3 Est. Patient 13:38:42 CDT Marek BANKS [facility] CPT-73804 Level 5 Est. Patient 08:08:39 CDT Jerrica FRANCIS [facility] CPT-33031 Level 4 Est. Patient 14:23:38 CDT Tu Landeros MD [facility] CPT-08121 Level 3 Est. Patient 11:44:04 CDT Tu Landeros MD [facility] CPT-20366 Level 3 Est. Patient 11:03:20 ASSISTANCE COORDINATOR Tu Landeros MD [facility] CPT-45327 Level 3 Est. Patient 11:03:14 ASSISTANCE COORDINATOR Tu Landeros MD [facility] CPT-66029 Level 3 Est. Patient 12:42:49 CDT Tu Landeros MD [facility] CPT-30989 Level 3 Est. Patient 11:52:06 CDT Tu Landeros MD [facility] CPT-27020 Level 3 Est. Patient 13:58:11 CDT Tu Landeros MD [facility] CPT-87096 Level 3 Est. Patient 17:50:07 CDT Fab Morales DO [facility] CPT-97691 Level 3 Est. Patient 12:06:29 CDT Elvira Cervantes MD, PhD [facility] CPT-06142 Level 3 Est. Patient 15:50:32 CDT Tu Landeros MD [facility] CPT-16185 Level 4 Est. Patient 16:08:29 CDT Tu Landeros MD [facility] CPT-62214 Level 3 Est. Patient 16:04:19 CDT Tu Landeros MD [facility] CPT-46082 Level 3 Est. Patient 11:22:30 ASSISTANCE COORDINATOR Tu Landeros MD [facility] CPT-38989 Level 4 Est. Patient 16:24:02 ASSISTANCE COORDINATOR Tu Landeros MD [facility] CPT-94784 Level 3 Est. Patient 17:21:23 ASSISTANCE COORDINATOR Tu Landeros MD [facility] Procedures Code Procedure Name Date Entry Date Standard Description CPT-JTINJ Asp/Joint Injection 15:51:27 ASSISTANCE COORDINATOR CPT-OV Office Visit 15:52:02 ASSISTANCE COORDINATOR CPT-OV Office Visit 15:45:11 CDT CPT-000 Give Zostavax 14:09:06 CDT CPT-74627 Administration single or combination vaccine inc oral 15 :19:04 CDT CPT-07137 Zoster Vaccine (Zostavax) 15:19:04 CDT CPT-06838 Administration single or combination vaccine inc oral 20 :51:03 CDT CPT-96164 Influenza split virus > age 3 20:51:03 CDT CPT-44629 No Charge Offi Visit 14:52:03 CDT CPT-OV Office Visit 14:57:43 CDT CPT-OV Office Visit 15:22:32 CDT CPT-19565 Administration single or combination vaccine inc oral 11 :33:15 CDT CPT-54649 Influenza split virus > age 3 11:33:15 CDT
--- OUTSIDE RECORDS SUMMARY | 2018-04-25 15:21 | XMS REPORT | Clinical Summary ---
Author Author Admin, SACHI Organization [employer] Address Unknown Phone Unavailable Allergies, Adverse Reactions, [...] po qHS PRN Restless legs ROPINIROLE HCL 16176282629 Active Tu Landeros MD Active VENLAFAXINE HCL 37.5 MG TABS 1 po BID VENLAFAXINE HCL 62304792592 Active Tu Landeros MD Active GABAPENTIN 100 MG CAPS 1 po BID GABAPENTIN 71516355175 Active José Luis Becerra MD Active REQUIP 2 MG TABS Take one tablet at bedtime prn ROPINIROLE HCL 02595641592 No Longer Active Tu Landeros MD Active VENTOLIN HFA 108 (90 BASE) MCG/ACT AERS 1-2 puffs every 4 hours if needed for cough/congestion ALBUTEROL SULFATE 11952992646 No Longer Active Ambika Aden APRN Active ZITHROMAX 250 MG TAB 2 po today, then 1 po q days 2-5 AZITHROMYCIN 96844594695 No Longer Active Miranda Suresh APRN Active METFORMIN HCL 1000 MG TABS 1 tablet by mouth twice daily METFORMIN HCL 48945176630 Active Tu Landeros MD Active FLONASE 50 MCG/ACT SUSP 1 spray each nostril twice daily until bottle empty FLUTICASONE PROPIONATE 62695127968 No Longer Active Tu Landeros MD Active COLACE 100 MG CAP 1 po BID PRN Constipation DOCUSATE SODIUM 49519817001 Active Tu Landeros MD Active SIMVASTATIN 40 MG TABS 0.5 tab daily at bedtime SIMVASTATIN 89664837997 Active Tu Landeros MD Active TRUERESULT BLOOD GLUCOSE W/DEVICE KIT test blood sugar twice daily dx 250.00 BLOOD GLUCOSE MONITORING SUPPL 91945073254 No Longer Active Tu Landeros MD Active TRUEDRAW LANCING DEVICE MISC Test twice a day dx 250.0 LANCET DEVICES 64705647735 No Longer Active Tu Landeros MD Active PREDNISONE 20 MG TAB 2 tablets once daily for 2 days, then 1 tablet once daily for 2 days PREDNISONE 06432672168 No Longer Active Tu Landeros MD Active DICLOFENAC SODIUM 50 MG TBEC 1 tablet by mouth three times a day as needed DICLOFENAC SODIUM 46838334696 No Longer Active Fab Morales DO Active TRUEDRAW LANCING DEVICE MISC test blood sugar twice daily dx: 250.00 LANCET DEVICES 59565814237 Active Tu Landeros MD Active TRUETEST TEST INVITR STRP test blood sugar twice daily. DX 250.0 GLUCOSE BLOOD 28007988592 Active Tu Landeros MD Active EMBRACE BLOOD GLUCOSE TEST STRP test blood sugar twice daily DX 250.0 2014 GLUCOSE BLOOD 32938453250 No Longer Active Tu Landeros MD Active TRUETEST TEST STRP test blood sugar three times daily dx: 250.00 GLUCOSE BLOOD 02259697224 No Longer Active Suze VOGEL Active TRUERESULT BLOOD GLUCOSE W/DEVICE KIT use to test blood sugar tid dx: 250.00 BLOOD GLUCOSE MONITORING SUPPL 18759196681 No Longer Active Suze VOGEL Active ALIGN 4 MG CAPS 1 tid PROBIOTIC PRODUCT 22040672166 No Longer Active Shaun Sy MD Active CIPRO 500 MG TABS 1 bid x 14 days start 09-28-13 CIPROFLOXACIN HCL 70106333930 No Longer Active Shaun Sy MD Active TRAMADOL HCL 50 MG TABS 1-2 tablets every 6 hours as needed for pain TRAMADOL HCL 77687775660 Active Tu Landeros MD Active HYDROCODONE-ACETAMINOPHEN 5-325 MG TABS 1 tab by mouth every 6 hours as needed for pain HYDROCODONE-ACETAMINOPHEN 48222206611 No Longer Active Tu Landeros MD Active OMEPRAZOLE 20 MG CPDR 1 po q a.m. OMEPRAZOLE 47513786325 Active Tu Landeros MD Active GABAPENTIN 100 MG CAPS 1 po bid GABAPENTIN 91300630848 No Longer Active Tu Landeros MD Active B-12 100 MCG TABS Take one by mouth daily CYANOCOBALAMIN 08211195440 No Longer Active Tu Landeros MD Active BACTRIM DS 800-160 MG TABS 1 bid x 14 day start 09-28-13 SULFAMETHOXAZOLE-TRIMETHOPRIM 28666851339 No Longer Active Tu Landeros MD Active CARVEDILOL 12.5 MG TABS 1 po BID CARVEDILOL 76205104658 Active Tu Landeros MD Active SUPER B COMPLEX/VITAMIN C TABS 1 qd B COMPLEX-C 33937141122 Active JASPREET Perez Active TRILIPIX 135 MG CPDR 1 q hs CHOLINE FENOFIBRATE 83023318133 Active Tu Landeros MD Active FENOFIBRATE 145 MG TABS 1 po qd FENOFIBRATE 79322313352 No Longer Active JASPREET Perez Active OMEPRAZOLE 20 MG TBEC 1 PO 30 MIN BEFORE 1ST MEAL OMEPRAZOLE 25090843842 No Longer Active JASPREET Perez Active SIMVASTATIN 40 MG TABS Take one by mouth daily SIMVASTATIN 75534646551 No Longer Active JASPREET Perez Active VENLAFAXINE HCL 75 MG TABS 1 po BID VENLAFAXINE HCL 63209442920 No Longer Active Gustavo JASPREET Green Active CIPRO 500 MG TAB 1 tablet by mouth twice daily CIPROFLOXACIN HCL 40237637141 No Longer Active Tu Landeros MD Active VENLAFAXINE HCL 37.5 MG TABS 1 po BID VENLAFAXINE HCL 18367525929 No Longer Active Suzebianca Nicole RMA Active LAMISIL 250 MG TAB 1 po qd TERBINAFINE HCL 48719015468 No Longer Active Tu Landeros MD Active LORTAB 5 5-500 MG TABS 1/2 to 1 tablet by mouth every 4 hours as needed for pain HYDROCODONE-ACETAMINOPHEN 19779782867 No Longer Active Tu Landeros MD Active ENALAPRIL MALEATE 20 MG TABS 1.5 po qd ENALAPRIL MALEATE 55979503375 Active Tu Landeros MD Active HYDROCODONE-ACETAMINOPHEN 5-500 MG TABS take one po Q 4-6 hours prn HYDROCODONE-ACETAMINOPHEN 02546336184 No Longer Active Tu Landeros MD Active BACTRIM DS 800-160 MG TABS 1 po BID x 7 days SULFAMETHOXAZOLE-TRIMETHOPRIM 02044292352 No Longer Active Tu Landeros MD Active VENLAFAXINE HCL 75 MG TABS 1 po BID VENLAFAXINE HCL 28827240522 No Longer Active Elvira Cervantes MD PhD Active TRAMADOL HCL 50 MG TABS 1 tablets every 6 hours as needed for pain TRAMADOL HCL 48117551449 No Longer Active Tu Landeros MD Active ACCU-CHEK FASTCLIX LANCETS MISC Use to check bloodsugar three times daily as needed LANCETS 25213028491 No Longer Active Tu Landeros MD Active ACCU-CHEK KEYONA PLUS STRP Use for testing bloodsugars three times daily as needed GLUCOSE BLOOD 27192884449 No Longer Active Tu Landeros MD Active ACCU-CHEK KEYONA PLUS W/DEVICE KIT Use for testing bloodsugars three times daily as needed BLOOD GLUCOSE MONITORING SUPPL 66192758805 No Longer Active Tu Landeros MD Active SPIRONOLACTONE 25 MG TAB 0.5 tablet by mouth daily SPIRONOLACTONE 87799634960 No Longer Active Tu Landeros MD Active ALPRAZOLAM 0.5 MG TABS 1 tab every 6hrs as needed ALPRAZOLAM 16132260628 No Longer Active Tu Landeros MD Active AUGMENTIN 875-125 MG TAB 1 tab by mouth twice daily with food AMOXICILLIN-POT CLAVULANATE 68270912412 No Longer Active Tu Landeros MD Active PREDNISONE 20 MG TAB 2 tabs daily for 3 days, 1 tab daily for 3 days, 1/2 tab daily for 2 days PREDNISONE 42023978544 No Longer Active Tu Landeros MD Active XANAX 0.5 MG TABS 1 tablet every 6 hrs prn ALPRAZOLAM 92765532257 No Longer Active Tu Landeros MD Active PREDNISONE 20 MG TAB 2 tabs daily for 3 days, 1 tab daily for 3 days, 1/2 tab daily for 2 days PREDNISONE 90603532717 No Longer Active Tu Landeros MD Active TRIAMCINOLONE ACETONIDE 0.1 % OINT Apply to affected areas TID for up to 2 weeks TRIAMCINOLONE ACETONIDE 72079882555 No Longer Active Tu Landeros MD Active LORTAB 5 5-500 MG TABS 1/2 to 1 tablet by mouth every 4 hours as needed for pain HYDROCODONE-ACETAMINOPHEN 01393289926 No Longer Active Tu Landeros MD Active MULTIVITAMINS TABS Take one by mouth daily MULTIPLE VITAMIN 79101287321 No Longer Active Tu Landeros MD Active MELATONIN 5 MG TABS Take one by mouth daily MELATONIN 13543246818 No Longer Active Tu Landeros MD Active SOMA 350 MG TAB 1 po q 6 hours prn spasm CARISOPRODOL 88325333579 No Longer Active Tu Landeros MD Active MECLIZINE HCL 25 MG CHEW TAB 1 four times a day as needed for dizziness 08/05 MECLIZINE HCL 33999757771 No Longer Active Fab Morales DO Active ANGEL BREEZE 2 TEST DISK test tid prn GLUCOSE BLOOD 25673990744 No Longer Active Negra Scott RN Active REGLAN 10 MG TAB 1 po TID PRN Nausea METOCLOPRAMIDE HCL 29332655188 No Longer Active Tu Landeros MD Active METFORMIN HCL 500 MG TABS 1 PO BID METFORMIN HCL 78029354841 No Longer Active Tu Landeros MD Active AMBIEN 10 MG TAB 1 tab by mouth at bedtime as needed for sleep ZOLPIDEM TARTRATE 18662645403 No Longer Active Tu Landeros MD Active FLUOXETINE HCL 40 MG CAPS 1 po q day FLUOXETINE HCL 75247363303 No Longer Active Mayra [place] Active FISH OIL 1000 MG CAPS Take one by mouth daily OMEGA-3 FATTY ACIDS 41738597823 Active Tu Landeros MD Active GLUCOSAMINE 500 MG TABS Take 2 tab po qd GLUCOSAMINE 14879649693 Active Tu Landeros MD Active TRILIPIX 135 MG CPDR 1 po qd CHOLINE FENOFIBRATE 74530630745 No Longer Active Tu Landeros MD Active ASPIRIN 81 MG CHEW TAB 1 tablet by mouth daily ASPIRIN 13923779001 Active Tu Landeros MD Active FUROSEMIDE 40 MG TAB 1 tablet by mouth daily FUROSEMIDE 01259797497 Active Tu Landeros MD Active KLOR-CON 10 10 MEQ CR-TABS TAKE 2 TABS DAILY POTASSIUM CHLORIDE 46437048760 Active Tu Landeros MD Active AMBIEN 10 MG TAB 1 tab by mouth at bedtime as needed for sleep AMBIEN 10 MG TAB 256547 ZOLPIDEM TARTRATE Inactive METFORMIN HCL 500 MG TABS 1 PO BID METFORMIN HCL 500 MG TABS 594060 METFORMIN HCL Inactive REGLAN 10 MG TAB 1 po TID PRN Nausea REGLAN 10 MG TAB 901145 METOCLOPRAMIDE HCL Inactive MECLIZINE HCL 25 MG CHEW TAB 1 four times a day as needed for dizziness 08/05 MECLIZINE HCL 25 MG CHEW TAB 533198 MECLIZINE HCL Inactive SOMA 350 MG TAB 1 po q 6 hours prn spasm SOMA 350 MG TAB 409180 CARISOPRODOL Inactive MELATONIN 5 MG TABS Take one by mouth daily MELATONIN 5 MG TABS 468009 MELATONIN Inactive MULTIVITAMINS TABS Take one by mouth daily MULTIVITAMINS TABS MULTIPLE VITAMIN Inactive LORTAB 5 5-500 MG TABS 1/2 to 1 tablet by mouth every 4 hours as needed for pain LORTAB 5 5-500 MG TABS HYDROCODONE- ACETAMINOPHEN Inactive XANAX 0.5 MG TABS 1 tablet every 6 hrs prn XANAX 0.5 MG TABS 493351 ALPRAZOLAM Inactive AUGMENTIN 875-125 MG TAB 1 tab by mouth twice daily with food AUGMENTIN 875-125 MG TAB 498452 AMOXICILLIN-POT CLAVULANATE Inactive ALPRAZOLAM 0.5 MG TABS 1 tab every 6hrs as needed ALPRAZOLAM 0.5 MG TABS 722666 ALPRAZOLAM Inactive SPIRONOLACTONE 25 MG TAB 0.5 tablet by mouth daily SPIRONOLACTONE 25 MG TAB 217326 SPIRONOLACTONE Inactive ACCU-CHEK KEYONA PLUS W/DEVICE KIT Use for testing bloodsugars three times daily as needed ACCU-CHEK KEYONA PLUS W/DEVICE KIT BLOOD GLUCOSE MONITORING SUPPL Inactive ACCU-CHEK KEYONA PLUS STRP Use for testing bloodsugars three times daily as needed ACCU-CHEK KEYONA PLUS STRP GLUCOSE BLOOD Inactive ACCU-CHEK FASTCLIX LANCETS [facility] Use to check bloodsugar three times daily as needed ACCU-CHEK FASTCLIX LANCETS [facility] [id number] LANCETS Inactive TRAMADOL HCL 50 MG TABS 1 tablets every 6 hours as needed for pain TRAMADOL HCL 50 MG TABS 948352 TRAMADOL HCL Inactive VENLAFAXINE HCL 75 MG TABS 1 po BID VENLAFAXINE HCL 75 MG TABS 322901 VENLAFAXINE HCL Inactive HYDROCODONE-ACETAMINOPHEN 5-500 MG TABS take one po Q 4-6 hours prn HYDROCODONE-ACETAMINOPHEN 5-500 MG TABS HYDROCODONE- ACETAMINOPHEN Inactive LORTAB 5 5-500 MG TABS 1/2 to 1 tablet by mouth every 4 hours as needed for pain LORTAB 5 5-500 MG TABS HYDROCODONE- ACETAMINOPHEN Inactive LAMISIL 250 MG TAB 1 po qd LAMISIL 250 MG TAB 034948 TERBINAFINE HCL Inactive VENLAFAXINE HCL 37.5 MG TABS 1 po BID VENLAFAXINE HCL 37.5 MG TABS 166522 VENLAFAXINE HCL Inactive CIPRO 500 MG TAB 1 tablet by mouth twice daily CIPRO 500 MG TAB 738987 CIPROFLOXACIN HCL Inactive VENLAFAXINE HCL 75 MG TABS 1 po BID VENLAFAXINE HCL 75 MG TABS 372028 VENLAFAXINE HCL Inactive SIMVASTATIN 40 MG TABS Take one by mouth daily SIMVASTATIN 40 MG TABS 678426 SIMVASTATIN Inactive OMEPRAZOLE 20 MG TBEC 1 PO 30 MIN BEFORE 1ST MEAL OMEPRAZOLE 20 MG TBEC 779611 OMEPRAZOLE Inactive FENOFIBRATE 145 MG TABS 1 po qd FENOFIBRATE 145 MG TABS 117602 FENOFIBRATE Inactive BACTRIM DS 800-160 MG TABS 1 bid x 14 day start 09-28-13 BACTRIM DS 800-160 MG TABS 856195 SULFAMETHOXAZOLE-TRIMETHOPRIM Inactive B-12 100 MCG TABS Take one by mouth daily B-12 100 MCG TABS CYANOCOBALAMIN Inactive GABAPENTIN 100 MG CAPS 1 po bid GABAPENTIN 100 MG CAPS 955368 GABAPENTIN Inactive HYDROCODONE-ACETAMINOPHEN 5-325 MG TABS 1 tab by mouth every 6 hours as needed for pain HYDROCODONE-ACETAMINOPHEN 5-325 MG TABS 720140 HYDROCODONE-ACETAMINOPHEN Inactive CIPRO 500 MG TABS 1 bid x 14 days start 09-28-13 CIPRO 500 MG TABS 942716 CIPROFLOXACIN HCL Inactive ALIGN 4 MG CAPS [...] as needed DICLOFENAC SODIUM 50 MG TBEC 393977 DICLOFENAC SODIUM Inactive PREDNISONE 20 MG TAB 2 tablets once daily for 2 days, then 1 tablet once daily for 2 days PREDNISONE 20 MG TAB 055758 PREDNISONE Inactive TRUEDRAW LANCING DEVICE MISC Test [...] at bedtime prn REQUIP 2 MG TABS 383067 ROPINIROLE HCL Inactive TRIAMCINOLONE ACETONIDE 0.1 % OINT Apply to affected areas TID for up to 2 weeks TRIAMCINOLONE ACETONIDE 0.1 % OINT 8858996 TRIAMCINOLONE ACETONIDE Inactive PREDNISONE 20 MG TAB 2 tabs daily for 3 days, 1 tab daily for 3 days, 1/2 tab daily for 2 days PREDNISONE 20 MG TAB 754970 PREDNISONE Inactive PREDNISONE 20 MG TAB 2 tabs daily for 3 days, 1 tab daily for 3 days, 1/2 tab daily for 2 days PREDNISONE 20 MG TAB 789273 PREDNISONE Inactive BACTRIM DS 800-160 MG TABS 1 po BID x 7 days BACTRIM DS 800-160 MG TABS 104816 SULFAMETHOXAZOLE-TRIMETHOPRIM Inactive ZITHROMAX 250 MG TAB 2 po today, then 1 po q days 2-5 ZITHROMAX 250 MG TAB 7561598 AZITHROMYCIN Inactive Advance Directives Directive Description Start Date DISCUSSED WITH PATIENT -- NO DECISION MADE Immunizations Vaccine Administration Date Value Standard Description Seasonal influenza vaccine, injectable, containing preservative, for > 3 years old (Afluria, FluLaval, Fluzone, Fluvirin, Fluarix, Agriflu(>=18 yo)) Fluzone (>3 yrs.) [ECR204] Influenza, seasonal, injectable influenza immunization (Flu Vax) has been administered 02/22/2012 influenza virus vaccine, unspecified formulation Seasonal influenza vaccine, injectable, containing preservative, for > 3 years old (Afluria, FluLaval, Fluzone, Fluvirin, Fluarix, Agriflu(>=18 yo)) Fluzone (>3 yrs.) [NQT879] Influenza, seasonal, injectable Vital Signs Date Name [...] 7.4 % 4.3-6.0 sodium, serum 140 mmol/L 998-768 9506/09/07 potassium, serum 4.3 mmol/L 3.5-5.2 chloride, serum 104 mmol/L 98-107 carbon dioxide, venous blood 27.7 mmol/L 21.0-32.0 blood glucose 156 mg/dL 65-110 calcium, serum 9.3 mg/dL 8.5-10.1 urea nitrogen, blood 23 mg/dL 7-18 creatinine, serum 1.21 mg/dL 0.55-1.30 Lab Report: Lipid Panel, Comp. Metabolic Panel - Chemistry cholesterol, serum 124 mg/dL 906-588 4386/01/12 triglyceride, serum, fasting 135 mg/dL 30-200 HDL cholesterol, serum 41 mg/dL 32-96 LDL cholesterol, serum 56 mg/dL 0-130 sodium, serum 140 mmol/L 142-901 3221/01/12 carbon dioxide, venous blood 27.7 mmol/L 21.0-32.0 potassium, serum 4.5 mmol/L 3.5-5.2 chloride, serum 104 mmol/L 98-107 blood glucose 139 mg/dL 65-110 urea nitrogen, blood 16 mg/dL 7-18 alanine aminotransferase (SGPT), serum 32 U/L 12-78 aspartate aminotransferase (SGOT), serum 25 U/L 15-37 calcium, serum 9.1 mg/dL 8.5-10.1 bilirubin, serum, total 0.50 mg/dL 0.00-1.00 Encounters Code Encounter Date Provider Facility CPT-41210 Level 4 Est. Patient 14:40:19 CDT Tu Landeros MD [facility] CPT-13358 Level 4 Est. Patient 14:06:04 PERSONAL CARE HOME ADMINISTRATOR Tu Landeros MD [facility] CPT-04028 Level 3 Est. Patient 14:05:18 PERSONAL CARE HOME ADMINISTRATOR Tu Landeros MD [facility] CPT-97702 Level 3 Est. Patient 10:06:54 PERSONAL CARE HOME ADMINISTRATOR Miranda Suresh APRN [facility] CPT-01950 Level 4 Est. Patient 13:50:18 PERSONAL CARE HOME ADMINISTRATOR Tu Landeros MD [facility] CPT-56833 Level 3 Est. Patient 10:30:04 CDT Tu Landeros MD [facility] CPT-16637 Level 4 Est. Patient 11:03:38 CDT Tu Landeros MD [facility] CPT-02449 Level 3 Est. Patient 10:20:44 CDT Fab Morales DO [facility] CPT-48027 Level 4 Est. Patient 14:38:57 CDT Tu Landeros MD [facility] CPT-71468 Level 4 Est. Patient 14:27:39 PERSONAL CARE HOME ADMINISTRATOR Tu Landeros MD [facility] CPT-06279 Level 4 Est. Patient 09:45:25 CDT Tu Landeros MD [facility] CPT-62468 Level 4 Est. Patient 09:05:20 PERSONAL CARE HOME ADMINISTRATOR Tu Landeros MD [facility] CPT-22616 Level 4 Est. Patient 14:09:06 CDT Tu Landeros MD [facility] CPT-38792 Level 3 Est. Patient 13:36:54 CDT Tu Landeros MD [facility] CPT-17166 Level 3 Est. Patient 08:59:14 CDT Tu Landeros MD [facility] CPT-60992 Level 3 Est. Patient 13:48:35 CDT Fab Morales DO [facility] CPT-19019 Level 4 Est. Patient 10:05:48 CDT Tu Landeros MD [facility] CPT-06637 Level 3 Est. Patient 13:38:42 CDT Marek BANKS [facility] CPT-41525 Level 5 Est. Patient 08:08:39 CDT Jerrica FRANCIS [facility] CPT-11380 Level 4 Est. Patient 14:23:38 CDT Tu Landeros MD [facility] CPT-20635 Level 3 Est. Patient 11:44:04 CDT Tu Landeros MD [facility] CPT-07778 Level 3 Est. Patient 11:03:20 PERSONAL CARE HOME ADMINISTRATOR Tu Landeros MD [facility] CPT-31933 Level 3 Est. Patient 11:03:14 PERSONAL CARE HOME ADMINISTRATOR Tu Landeros MD [facility] CPT-53107 Level 3 Est. Patient 12:42:49 CDT Tu Landeros MD [facility] CPT-79523 Level 3 Est. Patient 11:52:06 CDT uT Landeros MD [facility] CPT-97928 Level 3 Est. Patient 13:58:11 CDT Tu Landeros MD [facility] CPT-83492 Level 3 Est. Patient 17:50:07 CDT Fab Morales DO [facility] CPT-18298 Level 3 Est. Patient 12:06:29 CDT Elvira Cervantes MD [facility] CPT-12625 Level 3 Est. Patient 15:50:32 CDT Tu Landeros MD [facility] CPT-60783 Level 4 Est. Patient 16:08:29 CDT Tu Landeros MD [facility] CPT-16698 Level 3 Est. Patient 16:04:19 CDT Tu Landeros MD [facility] CPT-13057 Level 3 Est. Patient 11:22:30 PERSONAL CARE HOME ADMINISTRATOR Tu Landeros MD [facility] CPT-20451 Level 4 Est. Patient 16:24:02 PERSONAL CARE HOME ADMINISTRATOR Tu Landeros MD [facility] CPT-35103 Level 3 Est. Patient 17:21:23 PERSONAL CARE HOME ADMINISTRATOR Tu Landeros MD [facility] Procedures Code Procedure Name Date Entry Date Standard Description CPT-54554 Magnesium - LAB USE ONLY 11:14:20 PERSONAL CARE HOME ADMINISTRATOR CPT-83626 Lipid - LAB USE ONLY 11:14:20 PERSONAL CARE HOME ADMINISTRATOR CPT-22464 HGBA1C - LAB USE ONLY 11:14:20 PERSONAL CARE HOME ADMINISTRATOR CPT-19131 CMP - LAB USE ONLY 11:14:19 PERSONAL CARE HOME ADMINISTRATOR CPT-22015 CBC - LAB USE ONLY 11:14:19 PERSONAL CARE HOME ADMINISTRATOR CPT-90109 Venipuncture Draw Fee 11:14:18 PERSONAL CARE HOME ADMINISTRATOR CPT-42676 First Vx - Ix admin for Medicare patients 16:46:52 CDT CPT-73794 Fluzone Preservative Free Intramuscular Suspension 16:46 :51 CDT CPT-05555 CBC - LAB USE ONLY 17:14:46 CDT CPT-54720 HGBA1C - LAB USE ONLY 17:14:46 CDT CPT-11275 Venipuncture Draw Fee 17:14:46 CDT CPT-G0438 Initial Annual Wellness Exam 14:13:04 CDT CPT-61634 Breathing Tx 10:06:54 PERSONAL CARE HOME ADMINISTRATOR CPT-92995 Postop F/U Visit 10:02:45 CDT CPT-LR Lesion Removal 09:02:56 CDT CPT-JTINJ Asp/Joint Injection 15:51:27 PERSONAL CARE HOME ADMINISTRATOR CPT-OV Office Visit 15:52:02 PERSONAL CARE HOME ADMINISTRATOR CPT-OV Office Visit 15:45:11 CDT CPT-000 Give Zostavax 14:09:06 CDT CPT-69588 Administration single or combination vaccine inc oral 15 :19:04 CDT CPT-77022 Zoster Vaccine (Zostavax) 15:19:04 CDT CPT-21245 Administration single or combination vaccine inc oral 20 :51:03 CDT CPT-11031 Influenza split virus > age 3 20:51:03 CDT CPT-91542 No Charge Offi Visit 14:52:03 CDT CPT-OV Office Visit 14:57:43 CDT CPT-OV Office Visit 15:22:32 CDT CPT-42453 Administration single or combination vaccine inc oral 11 :33:15 CDT CPT-57057 Influenza split virus > age 3 11:33:15 CDT
--- OUTSIDE RECORDS SUMMARY | 2018-04-25 15:27 | XMS REPORT | Clinical Summary ---
Author Author Admin, SACHI Organization [employer] Address Unknown Phone Unavailable Allergies, Adverse Reactions, [...] po qHS PRN Restless legs ROPINIROLE HCL 82603021230 Active Tu Landeros MD Active VENLAFAXINE HCL 37.5 MG TABS 1 po BID VENLAFAXINE HCL 96610829966 Active Tu Landeros MD Active GABAPENTIN 100 MG CAPS 1 po BID GABAPENTIN 29449254212 Active José Luis Becerra MD Active REQUIP 2 MG TABS Take one tablet at bedtime prn ROPINIROLE HCL 39724341638 No Longer Active Tu Landeros MD Active VENTOLIN HFA 108 (90 BASE) MCG/ACT AERS 1-2 puffs every 4 hours if needed for cough/congestion ALBUTEROL SULFATE 12782265019 No Longer Active Ambika Aden APRN Active ZITHROMAX 250 MG TAB 2 po today, then 1 po q days 2-5 AZITHROMYCIN 44895653135 No Longer Active Miranda Suresh APRN Active METFORMIN HCL 1000 MG TABS 1 tablet by mouth twice daily METFORMIN HCL 43004435369 Active Tu Landeros MD Active FLONASE 50 MCG/ACT SUSP 1 spray each nostril twice daily until bottle empty FLUTICASONE PROPIONATE 07748055556 No Longer Active Tu Landeros MD Active COLACE 100 MG CAP 1 po BID PRN Constipation DOCUSATE SODIUM 70072913731 Active Tu Landeros MD Active SIMVASTATIN 40 MG TABS 0.5 tab daily at bedtime SIMVASTATIN 39303613640 Active Tu Landeros MD Active TRUERESULT BLOOD GLUCOSE W/DEVICE KIT test blood sugar twice daily dx 250.00 BLOOD GLUCOSE MONITORING SUPPL 68474089996 No Longer Active Tu Landeros MD Active TRUEDRAW LANCING DEVICE MISC Test twice a day dx 250.0 LANCET DEVICES 06088156547 No Longer Active Tu Landeros MD Active PREDNISONE 20 MG TAB 2 tablets once daily for 2 days, then 1 tablet once daily for 2 days PREDNISONE 15107690728 No Longer Active Tu Landeros MD Active DICLOFENAC SODIUM 50 MG TBEC 1 tablet by mouth three times a day as needed DICLOFENAC SODIUM 53095063505 No Longer Active Fab Morales DO Active TRUEDRAW LANCING DEVICE MISC test blood sugar twice daily dx: 250.00 LANCET DEVICES 39348346632 Active Tu Landeros MD Active TRUETEST TEST INVITR STRP test blood sugar twice daily. DX 250.0 GLUCOSE BLOOD 60028679415 Active Tu Landeros MD Active EMBRACE BLOOD GLUCOSE TEST STRP test blood sugar twice daily DX 250.0 2014 GLUCOSE BLOOD 44566764128 No Longer Active Tu Landeros MD Active TRUETEST TEST STRP test blood sugar three times daily dx: 250.00 GLUCOSE BLOOD 01394550977 No Longer Active Suze VOGEL Active TRUERESULT BLOOD GLUCOSE W/DEVICE KIT use to test blood sugar tid dx: 250.00 BLOOD GLUCOSE MONITORING SUPPL 70104031072 No Longer Active Suze VOGEL Active ALIGN 4 MG CAPS 1 tid PROBIOTIC PRODUCT 68905281454 No Longer Active Shaun Sy MD Active CIPRO 500 MG TABS 1 bid x 14 days start 09-28-13 CIPROFLOXACIN HCL 30726559332 No Longer Active Shaun Sy MD Active TRAMADOL HCL 50 MG TABS 1-2 tablets every 6 hours as needed for pain TRAMADOL HCL 79073124993 Active Tu Landeros MD Active HYDROCODONE-ACETAMINOPHEN 5-325 MG TABS 1 tab by mouth every 6 hours as needed for pain HYDROCODONE-ACETAMINOPHEN 49292460451 No Longer Active Tu Landeros MD Active OMEPRAZOLE 20 MG CPDR 1 po q a.m. OMEPRAZOLE 66847010457 Active Tu Landeros MD Active GABAPENTIN 100 MG CAPS 1 po bid GABAPENTIN 29551548219 No Longer Active Tu Landeros MD Active B-12 100 MCG TABS Take one by mouth daily CYANOCOBALAMIN 89171507762 No Longer Active Tu Landeros MD Active BACTRIM DS 800-160 MG TABS 1 bid x 14 day start 09-28-13 SULFAMETHOXAZOLE-TRIMETHOPRIM 04174387236 No Longer Active Tu Landeros MD Active CARVEDILOL 12.5 MG TABS 1 po BID CARVEDILOL 12202613715 Active Tu Landeros MD Active SUPER B COMPLEX/VITAMIN C TABS 1 qd B COMPLEX-C 85857604260 Active JASPREET Perez Active TRILIPIX 135 MG CPDR 1 q hs CHOLINE FENOFIBRATE 44112533790 Active Tu Landeros MD Active FENOFIBRATE 145 MG TABS 1 po qd FENOFIBRATE 93926469057 No Longer Active JASPREET Perez Active OMEPRAZOLE 20 MG TBEC 1 PO 30 MIN BEFORE 1ST MEAL OMEPRAZOLE 99900182871 No Longer Active JASPREET Perez Active SIMVASTATIN 40 MG TABS Take one by mouth daily SIMVASTATIN 69220542936 No Longer Active JASPREET Perez Active VENLAFAXINE HCL 75 MG TABS 1 po BID VENLAFAXINE HCL 86271712638 No Longer Active Gustavo JASPREET Green Active CIPRO 500 MG TAB 1 tablet by mouth twice daily CIPROFLOXACIN HCL 16992506672 No Longer Active Tu Landeros MD Active VENLAFAXINE HCL 37.5 MG TABS 1 po BID VENLAFAXINE HCL 65586553594 No Longer Active Suzebianca Nicole RMA Active LAMISIL 250 MG TAB 1 po qd TERBINAFINE HCL 71501779259 No Longer Active Tu Landeros MD Active LORTAB 5 5-500 MG TABS 1/2 to 1 tablet by mouth every 4 hours as needed for pain HYDROCODONE-ACETAMINOPHEN 52159962691 No Longer Active Tu Landeros MD Active ENALAPRIL MALEATE 20 MG TABS 1.5 po qd ENALAPRIL MALEATE 18927822707 Active Tu Landeros MD Active HYDROCODONE-ACETAMINOPHEN 5-500 MG TABS take one po Q 4-6 hours prn HYDROCODONE-ACETAMINOPHEN 68030474030 No Longer Active Tu Landeros MD Active BACTRIM DS 800-160 MG TABS 1 po BID x 7 days SULFAMETHOXAZOLE-TRIMETHOPRIM 57908030533 No Longer Active Tu Landeros MD Active VENLAFAXINE HCL 75 MG TABS 1 po BID VENLAFAXINE HCL 22224733870 No Longer Active Elvira Cervantes MD PhD Active TRAMADOL HCL 50 MG TABS 1 tablets every 6 hours as needed for pain TRAMADOL HCL 13287956223 No Longer Active Tu Landeros MD Active ACCU-CHEK FASTCLIX LANCETS MISC Use to check bloodsugar three times daily as needed LANCETS 35202063585 No Longer Active Tu Landeros MD Active ACCU-CHEK KEYONA PLUS STRP Use for testing bloodsugars three times daily as needed GLUCOSE BLOOD 06155848332 No Longer Active Tu Landeros MD Active ACCU-CHEK KEYONA PLUS W/DEVICE KIT Use for testing bloodsugars three times daily as needed BLOOD GLUCOSE MONITORING SUPPL 48338999319 No Longer Active Tu Landeros MD Active SPIRONOLACTONE 25 MG TAB 0.5 tablet by mouth daily SPIRONOLACTONE 42767115881 No Longer Active Tu Landeros MD Active ALPRAZOLAM 0.5 MG TABS 1 tab every 6hrs as needed ALPRAZOLAM 69016555891 No Longer Active Tu Landeros MD Active AUGMENTIN 875-125 MG TAB 1 tab by mouth twice daily with food AMOXICILLIN-POT CLAVULANATE 23927047197 No Longer Active Tu Landeros MD Active PREDNISONE 20 MG TAB 2 tabs daily for 3 days, 1 tab daily for 3 days, 1/2 tab daily for 2 days PREDNISONE 69130037312 No Longer Active Tu Landeros MD Active XANAX 0.5 MG TABS 1 tablet every 6 hrs prn ALPRAZOLAM 26340918120 No Longer Active Tu Landeros MD Active PREDNISONE 20 MG TAB 2 tabs daily for 3 days, 1 tab daily for 3 days, 1/2 tab daily for 2 days PREDNISONE 00336206704 No Longer Active Tu Landeros MD Active TRIAMCINOLONE ACETONIDE 0.1 % OINT Apply to affected areas TID for up to 2 weeks TRIAMCINOLONE ACETONIDE 26114605923 No Longer Active Tu Landeros MD Active LORTAB 5 5-500 MG TABS 1/2 to 1 tablet by mouth every 4 hours as needed for pain HYDROCODONE-ACETAMINOPHEN 30597445198 No Longer Active Tu Landeros MD Active MULTIVITAMINS TABS Take one by mouth daily MULTIPLE VITAMIN 15356846816 No Longer Active Tu Landeros MD Active MELATONIN 5 MG TABS Take one by mouth daily MELATONIN 68556388428 No Longer Active Tu Landeros MD Active SOMA 350 MG TAB 1 po q 6 hours prn spasm CARISOPRODOL 24877929626 No Longer Active Tu Landeros MD Active MECLIZINE HCL 25 MG CHEW TAB 1 four times a day as needed for dizziness 08/05 MECLIZINE HCL 32746074530 No Longer Active Fab Morales DO Active ANGEL BREEZE 2 TEST DISK test tid prn GLUCOSE BLOOD 60270247764 No Longer Active Negra Scott RN Active REGLAN 10 MG TAB 1 po TID PRN Nausea METOCLOPRAMIDE HCL 44945843376 No Longer Active Tu Landeros MD Active METFORMIN HCL 500 MG TABS 1 PO BID METFORMIN HCL 02181066422 No Longer Active Tu Landeros MD Active AMBIEN 10 MG TAB 1 tab by mouth at bedtime as needed for sleep ZOLPIDEM TARTRATE 72649785400 No Longer Active Tu Landeros MD Active FLUOXETINE HCL 40 MG CAPS 1 po q day FLUOXETINE HCL 90272500787 No Longer Active Mayra Rio Active FISH OIL 1000 MG CAPS Take one by mouth daily OMEGA-3 FATTY ACIDS 62579173357 Active Tu Landeros MD Active GLUCOSAMINE 500 MG TABS Take 2 tab po qd GLUCOSAMINE 39066969741 Active Tu Landeros MD Active TRILIPIX 135 MG CPDR 1 po qd CHOLINE FENOFIBRATE 96559623156 No Longer Active Tu Landeros MD Active ASPIRIN 81 MG CHEW TAB 1 tablet by mouth daily ASPIRIN 35422835639 Active Tu Landeros MD Active FUROSEMIDE 40 MG TAB 1 tablet by mouth daily FUROSEMIDE 75310636982 Active Tu Landeros MD Active KLOR-CON 10 10 MEQ CR-TABS TAKE 2 TABS DAILY POTASSIUM CHLORIDE 46656384779 Active Tu Landeros MD Active AMBIEN 10 MG TAB 1 tab by mouth at bedtime as needed for sleep AMBIEN 10 MG TAB 178374 ZOLPIDEM TARTRATE Inactive METFORMIN HCL 500 MG TABS 1 PO BID METFORMIN HCL 500 MG TABS 485040 METFORMIN HCL Inactive REGLAN 10 MG TAB 1 po TID PRN Nausea REGLAN 10 MG TAB 778182 METOCLOPRAMIDE HCL Inactive MECLIZINE HCL 25 MG CHEW TAB 1 four times a day as needed for dizziness 08/05 MECLIZINE HCL 25 MG CHEW TAB 139110 MECLIZINE HCL Inactive SOMA 350 MG TAB 1 po q 6 hours prn spasm SOMA 350 MG TAB 311827 CARISOPRODOL Inactive MELATONIN 5 MG TABS Take one by mouth daily MELATONIN 5 MG TABS 101524 MELATONIN Inactive MULTIVITAMINS TABS Take one by mouth daily MULTIVITAMINS TABS MULTIPLE VITAMIN Inactive LORTAB 5 5-500 MG TABS 1/2 to 1 tablet by mouth every 4 hours as needed for pain LORTAB 5 5-500 MG TABS HYDROCODONE- ACETAMINOPHEN Inactive XANAX 0.5 MG TABS 1 tablet every 6 hrs prn XANAX 0.5 MG TABS 184557 ALPRAZOLAM Inactive AUGMENTIN 875-125 MG TAB 1 tab by mouth twice daily with food AUGMENTIN 875-125 MG TAB 320609 AMOXICILLIN-POT CLAVULANATE Inactive ALPRAZOLAM 0.5 MG TABS 1 tab every 6hrs as needed ALPRAZOLAM 0.5 MG TABS 133697 ALPRAZOLAM Inactive SPIRONOLACTONE 25 MG TAB 0.5 tablet by mouth daily SPIRONOLACTONE 25 MG TAB 051628 SPIRONOLACTONE Inactive ACCU-CHEK KEYONA PLUS W/DEVICE KIT Use for testing bloodsugars three times daily as needed ACCU-CHEK KEYONA PLUS W/DEVICE KIT BLOOD GLUCOSE MONITORING SUPPL Inactive ACCU-CHEK KEYONA PLUS STRP Use for testing bloodsugars three times daily as needed ACCU-CHEK KEYONA PLUS STRP GLUCOSE BLOOD Inactive ACCU-CHEK FASTCLIX LANCETS [facility] Use to check bloodsugar three times daily as needed ACCU-CHEK FASTCLIX LANCETS [facility] [id number] LANCETS Inactive TRAMADOL HCL 50 MG TABS 1 tablets every 6 hours as needed for pain TRAMADOL HCL 50 MG TABS 403880 TRAMADOL HCL Inactive VENLAFAXINE HCL 75 MG TABS 1 po BID VENLAFAXINE HCL 75 MG TABS 624575 VENLAFAXINE HCL Inactive HYDROCODONE-ACETAMINOPHEN 5-500 MG TABS take one po Q 4-6 hours prn HYDROCODONE-ACETAMINOPHEN 5-500 MG TABS HYDROCODONE- ACETAMINOPHEN Inactive LORTAB 5 5-500 MG TABS 1/2 to 1 tablet by mouth every 4 hours as needed for pain LORTAB 5 5-500 MG TABS HYDROCODONE- ACETAMINOPHEN Inactive LAMISIL 250 MG TAB 1 po qd LAMISIL 250 MG TAB 277654 TERBINAFINE HCL Inactive VENLAFAXINE HCL 37.5 MG TABS 1 po BID VENLAFAXINE HCL 37.5 MG TABS 152729 VENLAFAXINE HCL Inactive CIPRO 500 MG TAB 1 tablet by mouth twice daily CIPRO 500 MG TAB 670818 CIPROFLOXACIN HCL Inactive VENLAFAXINE HCL 75 MG TABS 1 po BID VENLAFAXINE HCL 75 MG TABS 332565 VENLAFAXINE HCL Inactive SIMVASTATIN 40 MG TABS Take one by mouth daily SIMVASTATIN 40 MG TABS 125876 SIMVASTATIN Inactive OMEPRAZOLE 20 MG TBEC 1 PO 30 MIN BEFORE 1ST MEAL OMEPRAZOLE 20 MG TBEC 563961 OMEPRAZOLE Inactive FENOFIBRATE 145 MG TABS 1 po qd FENOFIBRATE 145 MG TABS 897406 FENOFIBRATE Inactive BACTRIM DS 800-160 MG TABS 1 bid x 14 day start 09-28-13 BACTRIM DS 800-160 MG TABS 851202 SULFAMETHOXAZOLE-TRIMETHOPRIM Inactive B-12 100 MCG TABS Take one by mouth daily B-12 100 MCG TABS CYANOCOBALAMIN Inactive GABAPENTIN 100 MG CAPS 1 po bid GABAPENTIN 100 MG CAPS 887381 GABAPENTIN Inactive HYDROCODONE-ACETAMINOPHEN 5-325 MG TABS 1 tab by mouth every 6 hours as needed for pain HYDROCODONE-ACETAMINOPHEN 5-325 MG TABS 250248 HYDROCODONE-ACETAMINOPHEN Inactive CIPRO 500 MG TABS 1 bid x 14 days start 09-28-13 CIPRO 500 MG TABS 873356 CIPROFLOXACIN HCL Inactive ALIGN 4 MG CAPS [...] as needed DICLOFENAC SODIUM 50 MG TBEC 258433 DICLOFENAC SODIUM Inactive PREDNISONE 20 MG TAB 2 tablets once daily for 2 days, then 1 tablet once daily for 2 days PREDNISONE 20 MG TAB 121296 PREDNISONE Inactive TRUEDRAW LANCING DEVICE MISC Test [...] at bedtime prn REQUIP 2 MG TABS 558624 ROPINIROLE HCL Inactive TRIAMCINOLONE ACETONIDE 0.1 % OINT Apply to affected areas TID for up to 2 weeks TRIAMCINOLONE ACETONIDE 0.1 % OINT 3253008 TRIAMCINOLONE ACETONIDE Inactive PREDNISONE 20 MG TAB 2 tabs daily for 3 days, 1 tab daily for 3 days, 1/2 tab daily for 2 days PREDNISONE 20 MG TAB 256624 PREDNISONE Inactive PREDNISONE 20 MG TAB 2 tabs daily for 3 days, 1 tab daily for 3 days, 1/2 tab daily for 2 days PREDNISONE 20 MG TAB 125834 PREDNISONE Inactive BACTRIM DS 800-160 MG TABS 1 po BID x 7 days BACTRIM DS 800-160 MG TABS 782121 SULFAMETHOXAZOLE-TRIMETHOPRIM Inactive ZITHROMAX 250 MG TAB 2 po today, then 1 po q days 2-5 ZITHROMAX 250 MG TAB 3882967 AZITHROMYCIN Inactive Advance Directives Directive Description Start Date DISCUSSED WITH PATIENT -- NO DECISION MADE Immunizations Vaccine Administration Date Value Standard Description Seasonal influenza vaccine, injectable, containing preservative, for > 3 years old (Afluria, FluLaval, Fluzone, Fluvirin, Fluarix, Agriflu(>=18 yo)) Fluzone (>3 yrs.) [DCW455] Influenza, seasonal, injectable influenza immunization (Flu Vax) has been administered 02/22/2012 influenza virus vaccine, unspecified formulation Seasonal influenza vaccine, injectable, containing preservative, for > 3 years old (Afluria, FluLaval, Fluzone, Fluvirin, Fluarix, Agriflu(>=18 yo)) Fluzone (>3 yrs.) [[id number]] Influenza, seasonal, injectable Vital Signs Date Name [...] Magnesium - Chemistry sodium, serum 143 mmol/L 861-827 3723/01/10 carbon dioxide, venous blood 28.0 mmol/L 21.0-32.0 potassium, serum 4.5 mmol/L 3.5-5.2 chloride, serum 104 mmol/L 98-107 blood glucose 158 mg/dL 65-110 urea nitrogen, blood 23 mg/dL 7-18 creatinine, serum 1.06 mg/dL 0.55-1.30 alanine aminotransferase (SGPT), serum 42 U/L 12-78 aspartate aminotransferase (SGOT), serum 32 U/L 15-37 calcium, serum 9.3 mg/dL 8.5-10.1 bilirubin, serum, total 0.20 mg/dL 0.00-1.00 cholesterol, serum 177 mg/dL 324-681 0952/01/10 triglyceride, serum, fasting 320 mg/dL 30-200 HDL cholesterol, serum 46 mg/dL 32-96 LDL cholesterol, serum 67 mg/dL 0-130 Lab Report: HGBA1C - Chemistry hemoglobin A1C, blood, as % of total hemoglobin 7.7 % 4.3-6.0 hemoglobin A1C, blood, as % of total hemoglobin 7.1 % 4.3-6.0 hemoglobin A1C, blood, as % of total hemoglobin 7.4 % 4.3-6.0 sodium, serum 140 mmol/L 412-796 8450/09/07 potassium, serum 4.3 mmol/L 3.5-5.2 chloride, serum 104 mmol/L 98-107 carbon dioxide, venous blood 27.7 mmol/L 21.0-32.0 blood glucose 156 mg/dL 65-110 calcium, serum 9.3 mg/dL 8.5-10.1 urea nitrogen, blood 23 mg/dL 7-18 creatinine, serum 1.21 mg/dL 0.55-1.30 Lab Report: Lipid Panel, Comp. Metabolic Panel - Chemistry cholesterol, serum 124 mg/dL 959-919 8323/01/12 triglyceride, serum, fasting 135 mg/dL 30-200 HDL cholesterol, serum 41 mg/dL 32-96 LDL cholesterol, serum 56 mg/dL 0-130 sodium, serum 140 mmol/L 330-275 4614/01/12 carbon dioxide, venous blood 27.7 mmol/L 21.0-32.0 potassium, serum 4.5 mmol/L 3.5-5.2 chloride, serum 104 mmol/L 98-107 blood glucose 139 mg/dL 65-110 urea nitrogen, blood 16 mg/dL 7-18 alanine aminotransferase (SGPT), serum 32 U/L 12-78 aspartate aminotransferase (SGOT), serum 25 U/L 15-37 calcium, serum 9.1 mg/dL 8.5-10.1 bilirubin, serum, total 0.50 mg/dL 0.00-1.00 Encounters Code Encounter Date Provider Facility CPT-37491 Level 4 Est. Patient 14:40:19 CDT Tu Landeros MD [facility] CPT-10783 Level 4 Est. Patient 14:06:04 LIBRARY INFORMATION TECHNICIAN Tu Landeros MD [facility] CPT-01830 Level 3 Est. Patient 14:05:18 LIBRARY INFORMATION TECHNICIAN Tu Landeros MD [facility] CPT-90119 Level 3 Est. Patient 10:06:54 LIBRARY INFORMATION TECHNICIAN Miranda Suresh APRN [facility] CPT-07647 Level 4 Est. Patient 13:50:18 LIBRARY INFORMATION TECHNICIAN Tu Landeros MD [facility] CPT-21118 Level 3 Est. Patient 10:30:04 CDT Tu Landeros MD [facility] CPT-49262 Level 4 Est. Patient 11:03:38 CDT Tu Landeros MD [facility] CPT-04114 Level 3 Est. Patient 10:20:44 CDT Fab Morales DO [facility] CPT-62663 Level 4 Est. Patient 14:38:57 CDT Tu Landeros MD [facility] CPT-52571 Level 4 Est. Patient 14:27:39 LIBRARY INFORMATION TECHNICIAN Tu Landeros MD [facility] CPT-75296 Level 4 Est. Patient 09:45:25 CDT uT Landeros MD [facility] CPT-69282 Level 4 Est. Patient 09:05:20 LIBRARY INFORMATION TECHNICIAN Tu Landeros MD [facility] CPT-94361 Level 4 Est. Patient 14:09:06 CDT Tu Landeros MD [facility] CPT-79949 Level 3 Est. Patient 13:36:54 CDT Tu Landeros MD [facility] CPT-29780 Level 3 Est. Patient 08:59:14 CDT Tu Landeros MD [facility] CPT-93744 Level 3 Est. Patient 13:48:35 CDT Fab Morales DO [facility] CPT-43933 Level 4 Est. Patient 10:05:48 CDT Tu Landeros MD [facility] CPT-84928 Level 3 Est. Patient 13:38:42 CDT Marek BANKS [facility] CPT-55266 Level 5 Est. Patient 08:08:39 CDT Jerrica FRANCIS [facility] CPT-78561 Level 4 Est. Patient 14:23:38 CDT Tu Landeros MD [facility] CPT-65475 Level 3 Est. Patient 11:44:04 CDT Tu Landeros MD [facility] CPT-80616 Level 3 Est. Patient 11:03:20 LIBRARY INFORMATION TECHNICIAN Tu Landeros MD [facility] CPT-96325 Level 3 Est. Patient 11:03:14 LIBRARY INFORMATION TECHNICIAN Tu Landeros MD [facility] CPT-24816 Level 3 Est. Patient 12:42:49 CDT Tu Landeros MD [facility] CPT-56034 Level 3 Est. Patient 11:52:06 CDT Tu Landeros MD [facility] CPT-62125 Level 3 Est. Patient 13:58:11 CDT Tu Landeros MD [facility] CPT-21358 Level 3 Est. Patient 17:50:07 CDT Fab Morales DO [facility] CPT-04612 Level 3 Est. Patient 12:06:29 CDT Elvira Cervantes MD PhD [facility] CPT-52266 Level 3 Est. Patient 15:50:32 CDT Tu Landeros MD [facility] CPT-16984 Level 4 Est. Patient 16:08:29 CDT Tu Landeros MD [facility] CPT-82964 Level 3 Est. Patient 16:04:19 CDT Tu Landeros MD [facility] CPT-45930 Level 3 Est. Patient 11:22:30 LIBRARY INFORMATION TECHNICIAN Tu Landeros MD [facility] CPT-24552 Level 4 Est. Patient 16:24:02 LIBRARY INFORMATION TECHNICIAN Tu Landeros MD [facility] CPT-68906 Level 3 Est. Patient 17:21:23 LIBRARY INFORMATION TECHNICIAN Tu Landeros MD [facility] Procedures Code Procedure Name Date Entry Date Standard Description CPT-17374 Magnesium - LAB USE ONLY 11:14:20 LIBRARY INFORMATION TECHNICIAN CPT-62912 Lipid - LAB USE ONLY 11:14:20 LIBRARY INFORMATION TECHNICIAN CPT-59191 HGBA1C - LAB USE ONLY 11:14:20 LIBRARY INFORMATION TECHNICIAN CPT-74938 CMP - LAB USE ONLY 11:14:19 LIBRARY INFORMATION TECHNICIAN CPT-18656 CBC - LAB USE ONLY 11:14:19 LIBRARY INFORMATION TECHNICIAN CPT-19454 Venipuncture Draw Fee 11:14:18 LIBRARY INFORMATION TECHNICIAN CPT-16972 First Vx - Ix admin for Medicare patients 16:46:52 CDT CPT-33340 Fluzone Preservative Free Intramuscular Suspension 16:46 :51 CDT CPT-77960 CBC - LAB USE ONLY 17:14:46 CDT CPT-57426 HGBA1C - LAB USE ONLY 17:14:46 CDT CPT-97460 Venipuncture Draw Fee 17:14:46 CDT CPT-G0438 Initial Annual Wellness Exam 14:13:04 CDT CPT-78154 Breathing Tx 10:06:54 LIBRARY INFORMATION TECHNICIAN CPT-41415 Postop F/U Visit 10:02:45 CDT CPT-LR Lesion Removal 09:02:56 CDT CPT-JTINJ Asp/Joint Injection 15:51:27 LIBRARY INFORMATION TECHNICIAN CPT-OV Office Visit 15:52:02 LIBRARY INFORMATION TECHNICIAN CPT-OV Office Visit 15:45:11 CDT CPT-000 Give Zostavax 14:09:06 CDT CPT-13869 Administration single or combination vaccine inc oral 15 :19:04 CDT CPT-80724 Zoster Vaccine (Zostavax) 15:19:04 CDT CPT-48004 Administration single or combination vaccine inc oral 20 :51:03 CDT CPT-93989 Influenza split virus > age 3 20:51:03 CDT CPT-13009 No Charge Offi Visit 14:52:03 CDT CPT-OV Office Visit 14:57:43 CDT CPT-OV Office Visit 15:22:32 CDT CPT-69437 Administration single or combination vaccine inc oral 11 :33:15 CDT CPT-59571 Influenza split virus > age 3 11:33:15 CDT
--- OUTSIDE RECORDS SUMMARY | 2018-04-25 15:31 | XMS REPORT | Clinical Summary ---
Author Author Admin, SACHI Organization [employer] Address Unknown Phone Unavailable Allergies, Adverse Reactions, [...] abdominal wall, anterior, complicated ICD-879.3 Inactive Tu Landeors MD Upper respiratory infection, viral ICD-465.9 Inactive [...] ORAL TABS 1 po BID VENLAFAXINE HCL 12939373651 Active Tu Landeros MD Active GLIMEPIRIDE 1 MG ORAL TABS 1 po qd GLIMEPIRIDE 21326942346 Active Tu Landeros MD Active TRUE METRIX BLOOD GLUCOSE TEST INVITR STRP Test blood sugar BID Dx: E11.9 GLUCOSE BLOOD 74228872938 Delores Landeros MD Active TRUE METRIX AIR GLUCOSE METER W/DEVICE KIT Test blood glucose BID Dx: E11.9 BLOOD GLUCOSE MONITORING SUPPL 86580512408 Active Tu Landeros MD Active TRUETEST TEST INVITR STRP test blood sugar twice daily. DX 250.0 GLUCOSE BLOOD 82776570141 No Longer Active Mirna Stanley LPN Active TRUEDRAW LANCING DEVICE MISC test blood sugar twice daily dx: 250.00 LANCET DEVICES 50187836381 No Longer Active Mirna Stanley LPN Active ENALAPRIL MALEATE 20 MG TABS 2 po qd ENALAPRIL MALEATE 40455212515 Active Tu Landeros MD Active SUPER B COMPLEX/VITAMIN C TABS 1 qd B COMPLEX-C 10864219389 No Longer Active Tu Landeros MD Active ASPIRIN EC 81 MG ORAL TBEC 1 po qd ASPIRIN 03231302084 Active Tu Landeros MD Active GLUCOSAMINE 500 MG TABS 2 po qd GLUCOSAMINE Active Tu Landeros MD Active SIMVASTATIN 40 MG TABS 0.5 po qHS SIMVASTATIN 72989347861 Active Tu Landeros MD Active FISH OIL 1000 MG CAPS 1 po qd OMEGA-3 FATTY ACIDS 14839890803 Active Tu Landeros MD Active METFORMIN HCL 1000 MG TABS 1 po BID METFORMIN HCL 98044489911 Active Tu Landeros MD Active KLOR-CON 10 10 MEQ CR-TABS 2 po qd POTASSIUM CHLORIDE 23169461375 Active Tu Landeros MD Active FUROSEMIDE 40 MG TAB 1 po qd FUROSEMIDE 29324462614 Active Tu Landeros MD Active REQUIP 2 MG ORAL TABS 1 po qHS PRN Restless legs ROPINIROLE HCL 55316959371 Active Tu Landeros MD Active GABAPENTIN 100 MG CAPS 1 po BID GABAPENTIN 64854353166 Active Tu Landeros MD Active REQUIP 2 MG TABS Take one tablet at bedtime prn ROPINIROLE HCL 11308436309 No Longer Active Tu Landeros MD Active VENTOLIN HFA 108 (90 BASE) MCG/ACT AERS 1-2 puffs every 4 hours if needed for cough/congestion ALBUTEROL SULFATE 59032996112 No Longer Active Ambika Aden APRN Active ZITHROMAX 250 MG TAB 2 po today, then 1 po q days 2-5 AZITHROMYCIN 57601260243 No Longer Active Miranda Suresh APRN Active FLONASE 50 MCG/ACT SUSP 1 spray each nostril twice daily until bottle empty FLUTICASONE PROPIONATE 55608686023 No Longer Active Tu Landeros MD Active COLACE 100 MG CAP 1 po BID PRN Constipation DOCUSATE SODIUM 02539599262 Active Tu Landeros MD Active TRUERESULT BLOOD GLUCOSE W/DEVICE KIT test blood sugar twice daily dx 250.00 BLOOD GLUCOSE MONITORING SUPPL 78473131477 No Longer Active Tu Landeros MD Active TRUEDRAW LANCING DEVICE MISC Test twice a day dx 250.0 LANCET DEVICES 05360489813 No Longer Active Tu Landeros MD Active PREDNISONE 20 MG TAB 2 tablets once daily for 2 days, then 1 tablet once daily for 2 days PREDNISONE 01679478182 No Longer Active Tu Landeros MD Active DICLOFENAC SODIUM 50 MG TBEC 1 tablet by mouth three times a day as needed DICLOFENAC SODIUM 57291514854 No Longer Active Fab Morales DO Active EMBRACE BLOOD GLUCOSE TEST STRP test blood sugar twice daily DX 250.0 2014 GLUCOSE BLOOD 01683041917 No Longer Active Tu Landeros MD Active TRUETEST TEST STRP test blood sugar three times daily dx: 250.00 GLUCOSE BLOOD 94561030418 No Longer Active Suze Corey VOGEL Active TRUERESULT BLOOD GLUCOSE W/DEVICE KIT use to test blood sugar tid dx: 250.00 BLOOD GLUCOSE MONITORING SUPPL 65639882596 No Longer Active Suze Corey RMA Active ALIGN 4 MG CAPS 1 tid PROBIOTIC PRODUCT 67014376619 No Longer Active Shaun Sy MD Active CIPRO 500 MG TABS 1 bid x 14 days start 09-28-13 CIPROFLOXACIN HCL 42079131823 No Longer Active Shaun Sy MD Active TRAMADOL HCL 50 MG TABS 1-2 tablets every 6 hours as needed for pain TRAMADOL HCL 95799491946 Active Lesli Kellogg APRN Active HYDROCODONE-ACETAMINOPHEN 5-325 MG TABS 1 tab by mouth every 6 hours as needed for pain HYDROCODONE-ACETAMINOPHEN 88338149521 No Longer Active Tu Landeros MD Active OMEPRAZOLE 20 MG CPDR 1 po q a.m. OMEPRAZOLE 75010008577 Active Lesli Kellogg APRN Active GABAPENTIN 100 MG CAPS 1 po bid GABAPENTIN 54162296357 No Longer Active Tu Landeros MD Active B-12 100 MCG TABS Take one by mouth daily CYANOCOBALAMIN 75647251321 No Longer Active Tu Landeros MD Active BACTRIM DS 800-160 MG TABS 1 bid x 14 day start 09-28-13 SULFAMETHOXAZOLE-TRIMETHOPRIM 06926961049 No Longer Active Tu Landeros MD Active CARVEDILOL 12.5 MG TABS 1 po BID CARVEDILOL 88654550406 Active Tu Landeros MD Active TRILIPIX 135 MG CPDR 1 q hs CHOLINE FENOFIBRATE 58602354778 Active Tu Landeros MD Active FENOFIBRATE 145 MG TABS 1 po qd FENOFIBRATE 92643033481 No Longer Active JASPREET Perez Active OMEPRAZOLE 20 MG TBEC 1 PO 30 MIN BEFORE 1ST MEAL OMEPRAZOLE 40199060924 No Longer Active JASPREET Perez Active SIMVASTATIN 40 MG TABS Take one by mouth daily SIMVASTATIN 38867551473 No Longer Active JASPREET Perez Active VENLAFAXINE HCL 75 MG TABS 1 po BID VENLAFAXINE HCL 71453581733 No Longer Active Alexis Norma, RMA Active CIPRO 500 MG TAB 1 tablet by mouth twice daily CIPROFLOXACIN HCL 73027973170 No Longer Active Tu Landeros MD Active VENLAFAXINE HCL 37.5 MG TABS 1 po BID VENLAFAXINE HCL 86180672182 No Longer Active Suze Nicole RMA Active LAMISIL 250 MG TAB 1 po qd TERBINAFINE HCL 42484377108 No Longer Active Tu Landeros MD Active LORTAB 5 5-500 MG TABS 1/2 to 1 tablet by mouth every 4 hours as needed for pain HYDROCODONE-ACETAMINOPHEN 51074593158 No Longer Active Tu Landeros MD Active HYDROCODONE-ACETAMINOPHEN 5-500 MG TABS take one po Q 4-6 hours prn HYDROCODONE-ACETAMINOPHEN 53115727305 No Longer Active Tu Landeros MD Active BACTRIM DS 800-160 MG TABS 1 po BID x 7 days SULFAMETHOXAZOLE-TRIMETHOPRIM 08381151283 No Longer Active Tu Landeros MD Active VENLAFAXINE HCL 75 MG TABS 1 po BID VENLAFAXINE HCL 42362523037 No Longer Active Elvira Cervantes MD PhD Active TRAMADOL HCL 50 MG TABS 1 tablets every 6 hours as needed for pain TRAMADOL HCL 51384134831 No Longer Active Tu Landeros MD Active ACCU-CHEK FASTCLIX LANCETS MISC Use to check bloodsugar three times daily as needed LANCETS 00589264966 No Longer Active Tu Landeros MD Active ACCU-CHEK KEYONA PLUS STRP Use for testing bloodsugars three times daily as needed GLUCOSE BLOOD 66710050652 No Longer Active Tu Landeros MD Active ACCU-CHEK KEYONA PLUS W/DEVICE KIT Use for testing bloodsugars three times daily as needed BLOOD GLUCOSE MONITORING SUPPL 55329800013 No Longer Active Tu Landeros MD Active SPIRONOLACTONE 25 MG TAB 0.5 tablet by mouth daily SPIRONOLACTONE 02968873643 No Longer Active Tu Landeros MD Active ALPRAZOLAM 0.5 MG TABS 1 tab every 6hrs as needed ALPRAZOLAM 58361067697 No Longer Active Tu Landeros MD Active AUGMENTIN 875-125 MG TAB 1 tab by mouth twice daily with food AMOXICILLIN-POT CLAVULANATE 02749575341 No Longer Active Tu Landeros MD Active PREDNISONE 20 MG TAB 2 tabs daily for 3 days, 1 tab daily for 3 days, 1/2 tab daily for 2 days PREDNISONE 16957832815 No Longer Active Tu Landeros MD Active XANAX 0.5 MG TABS 1 tablet every 6 hrs prn ALPRAZOLAM 41867763576 No Longer Active Tu Landeros MD Active PREDNISONE 20 MG TAB 2 tabs daily for 3 days, 1 tab daily for 3 days, 1/2 tab daily for 2 days PREDNISONE 86307624776 No Longer Active Tu Landeros MD Active TRIAMCINOLONE ACETONIDE 0.1 % OINT Apply to affected areas TID for up to 2 weeks TRIAMCINOLONE ACETONIDE 79641701236 No Longer Active Tu Landeros MD Active LORTAB 5 5-500 MG TABS 1/2 to 1 tablet by mouth every 4 hours as needed for pain HYDROCODONE-ACETAMINOPHEN 06078765576 No Longer Active Tu Landeros MD Active MULTIVITAMINS TABS Take one by mouth daily MULTIPLE VITAMIN 90825889858 No Longer Active Tu Landeros MD Active MELATONIN 5 MG TABS Take one by mouth daily MELATONIN 39191250129 No Longer Active Tu Landeros MD Active SOMA 350 MG TAB 1 po q 6 hours prn spasm CARISOPRODOL 81915360803 No Longer Active Tu Landeros MD Active MECLIZINE HCL 25 MG CHEW TAB 1 four times a day as needed for dizziness 08/05 MECLIZINE HCL 43825595866 No Longer Active Fab Morales DO Active ANGEL NIKKOEZAdrianna 2 TEST DISK test tid prn GLUCOSE BLOOD 35824522985 No Longer Active Negra Tyler MICHAEL Active REGLAN 10 MG TAB 1 po TID PRN Nausea METOCLOPRAMIDE HCL 84526556729 No Longer Active Tu Landeros MD Active METFORMIN HCL 500 MG TABS 1 PO BID METFORMIN HCL 60258036201 No Longer Active Tu Landeros MD Active AMBIEN 10 MG TAB 1 tab by mouth at bedtime as needed for sleep ZOLPIDEM TARTRATE 60149716688 No Longer Active Tu Landeros MD Active FLUOXETINE HCL 40 MG CAPS 1 po q day FLUOXETINE HCL 61338808575 No Longer Active Mayra Kemp Active TRILIPIX 135 MG CPDR 1 po qd CHOLINE FENOFIBRATE 02365811579 No Longer Active Tu Landeros MD Active AMBIEN 10 MG TAB 1 tab by mouth at bedtime as needed for sleep AMBIEN 10 MG TAB 906744 ZOLPIDEM TARTRATE Inactive METFORMIN HCL 500 MG TABS 1 PO BID METFORMIN HCL 500 MG TABS 702827 METFORMIN HCL Inactive REGLAN 10 MG TAB 1 po TID PRN Nausea REGLAN 10 MG TAB 578077 METOCLOPRAMIDE HCL Inactive MECLIZINE HCL 25 MG CHEW TAB 1 four times a day as needed for dizziness 08/05 MECLIZINE HCL 25 MG CHEW TAB 627130 MECLIZINE HCL Inactive SOMA 350 MG TAB 1 po q 6 hours prn spasm SOMA 350 MG TAB 931938 CARISOPRODOL Inactive MELATONIN 5 MG TABS Take one by mouth daily MELATONIN 5 MG TABS 309931 MELATONIN Inactive MULTIVITAMINS TABS Take one by mouth daily MULTIVITAMINS TABS MULTIPLE VITAMIN Inactive LORTAB 5 5-500 MG TABS 1/2 to 1 tablet by mouth every 4 hours as needed for pain LORTAB 5 5-500 MG TABS HYDROCODONE- ACETAMINOPHEN Inactive XANAX 0.5 MG TABS 1 tablet every 6 hrs prn XANAX 0.5 MG TABS 225482 ALPRAZOLAM Inactive AUGMENTIN 875-125 MG TAB 1 tab by mouth twice daily with food AUGMENTIN 875-125 MG TAB 344360 AMOXICILLIN-POT CLAVULANATE Inactive ALPRAZOLAM 0.5 MG TABS 1 tab every 6hrs as needed ALPRAZOLAM 0.5 MG TABS 430724 ALPRAZOLAM Inactive SPIRONOLACTONE 25 MG TAB 0.5 tablet by mouth daily SPIRONOLACTONE 25 MG TAB 627398 SPIRONOLACTONE Inactive ACCU-CHEK KEYONA PLUS W/DEVICE KIT Use for testing bloodsugars three times daily as needed ACCU-CHEK KEYONA PLUS W/DEVICE KIT BLOOD GLUCOSE MONITORING SUPPL Inactive ACCU-CHEK KEYONA PLUS STRP Use for testing bloodsugars three times daily as needed ACCU-CHEK KEYONA PLUS STRP GLUCOSE BLOOD Inactive ACCU-CHEK FASTCLIX LANCETS MISC Use to check bloodsugar three times daily as needed ACCU-CHEK FASTCLIX LANCETS MISC 69744735046 LANCETS Inactive TRAMADOL HCL 50 MG TABS 1 tablets every 6 hours as needed for pain TRAMADOL HCL 50 MG TABS 340345 TRAMADOL HCL Inactive VENLAFAXINE HCL 75 MG TABS 1 po BID VENLAFAXINE HCL 75 MG TABS 677567 VENLAFAXINE HCL Inactive HYDROCODONE-ACETAMINOPHEN 5-500 MG TABS take one po Q 4-6 hours prn HYDROCODONE-ACETAMINOPHEN 5-500 MG TABS HYDROCODONE- ACETAMINOPHEN Inactive LORTAB 5 5-500 MG TABS 1/2 to 1 tablet by mouth every 4 hours as needed for pain LORTAB 5 5-500 MG TABS HYDROCODONE- ACETAMINOPHEN Inactive LAMISIL 250 MG TAB 1 po qd LAMISIL 250 MG TAB 725389 TERBINAFINE HCL Inactive VENLAFAXINE HCL 37.5 MG TABS 1 po BID VENLAFAXINE HCL 37.5 MG TABS 708234 VENLAFAXINE HCL Inactive CIPRO 500 MG TAB 1 tablet by mouth twice daily CIPRO 500 MG TAB 374702 CIPROFLOXACIN HCL Inactive VENLAFAXINE HCL 75 MG TABS 1 po BID VENLAFAXINE HCL 75 MG TABS 758987 VENLAFAXINE HCL Inactive SIMVASTATIN 40 MG TABS Take one by mouth daily SIMVASTATIN 40 MG TABS 249660 SIMVASTATIN Inactive OMEPRAZOLE 20 MG TBEC 1 PO 30 MIN BEFORE 1ST MEAL OMEPRAZOLE 20 MG TBEC 007612 OMEPRAZOLE Inactive FENOFIBRATE 145 MG TABS 1 po qd FENOFIBRATE 145 MG TABS 581006 FENOFIBRATE Inactive BACTRIM DS 800-160 MG TABS 1 bid x 14 day start 09-28-13 BACTRIM DS 800-160 MG TABS 654594 SULFAMETHOXAZOLE-TRIMETHOPRIM Inactive B-12 100 MCG TABS Take one by mouth daily B-12 100 MCG TABS CYANOCOBALAMIN Inactive GABAPENTIN 100 MG CAPS 1 po bid GABAPENTIN 100 MG CAPS 165400 GABAPENTIN Inactive HYDROCODONE-ACETAMINOPHEN 5-325 MG TABS 1 tab by mouth every 6 hours as needed for pain HYDROCODONE-ACETAMINOPHEN 5-325 MG TABS 404912 HYDROCODONE-ACETAMINOPHEN Inactive CIPRO 500 MG TABS 1 bid x 14 days start 09-28-13 CIPRO 500 MG TABS 543405 CIPROFLOXACIN HCL Inactive ALIGN 4 MG CAPS [...] as needed DICLOFENAC SODIUM 50 MG TBEC 933886 DICLOFENAC SODIUM Inactive PREDNISONE 20 MG TAB 2 tablets once daily for 2 days, then 1 tablet once daily for 2 days PREDNISONE 20 MG TAB 296707 PREDNISONE Inactive TRUEDRAW LANCING DEVICE MISC Test twice a day dx 250.0 TRUEDRAW LANCING DEVICE MISC LANCET DEVICES Inactive TRUERESULT BLOOD GLUCOSE W/DEVICE KIT test blood sugar twice daily dx 250.00 TRUERESULT BLOOD GLUCOSE W/DEVICE KIT BLOOD GLUCOSE MONITORING SUPPL Inactive FLONASE 50 MCG/ACT SUSP 1 spray each nostril twice daily until bottle empty FLONASE 50 MCG/ACT SUSP 1082753 FLUTICASONE PROPIONATE Inactive VENTOLIN HFA 108 (90 BASE) MCG/ACT AERS 1-2 puffs every 4 hours if needed for cough/congestion VENTOLIN HFA 108 (90 BASE) MCG/ACT AERS ALBUTEROL SULFATE Inactive REQUIP 2 MG TABS Take one tablet at bedtime prn REQUIP 2 MG TABS 656096 ROPINIROLE HCL Inactive SUPER B COMPLEX/VITAMIN C TABS 1 qd SUPER B COMPLEX/ VITAMIN C TABS 29590391404 B COMPLEX-C Inactive TRUEDRAW LANCING DEVICE MISC test blood sugar twice daily dx: 250.00 TRUEDRAW LANCING DEVICE MISC LANCET DEVICES Inactive TRUETEST TEST INVITR STRP test blood sugar twice daily. DX 250.0 TRUETEST TEST INVITR STRP GLUCOSE BLOOD Inactive TRIAMCINOLONE ACETONIDE 0.1 % OINT Apply to affected areas TID for up to 2 weeks TRIAMCINOLONE ACETONIDE 0.1 % OINT 0819904 TRIAMCINOLONE ACETONIDE Inactive PREDNISONE 20 MG TAB 2 tabs daily for 3 days, 1 tab daily for 3 days, 1/2 tab daily for 2 days PREDNISONE 20 MG TAB 666765 PREDNISONE Inactive PREDNISONE 20 MG TAB 2 tabs daily for 3 days, 1 tab daily for 3 days, 1/2 tab daily for 2 days PREDNISONE 20 MG TAB 625507 PREDNISONE Inactive BACTRIM DS 800-160 MG TABS 1 po BID x 7 days BACTRIM DS 800-160 MG TABS 601766 SULFAMETHOXAZOLE-TRIMETHOPRIM Inactive ZITHROMAX 250 MG TAB 2 po today, then 1 po q days 2-5 ZITHROMAX 250 MG TAB 8074615 AZITHROMYCIN Inactive Advance Directives Directive Description Start Date DISCUSSED WITH PATIENT -- NO DECISION MADE Immunizations Vaccine Administration Date Value Standard Description Seasonal influenza vaccine, injectable, containing preservative, for > 3 years old (Afluria, FluLaval, Fluzone, Fluvirin, Fluarix, Agriflu(>=18 yo)) Fluzone (>3 yrs.) [[id number]] Influenza, seasonal, injectable influenza immunization (Flu Vax) has been administered 02/22/2012 influenza virus vaccine, unspecified formulation Seasonal influenza vaccine, injectable, containing preservative, for > 3 years old (Afluria, FluLaval, Fluzone, Fluvirin, Fluarix, Agriflu(>=18 yo)) Fluzone (>3 yrs.) [[id number]] Influenza, seasonal, injectable Vital Signs Date Name [...] Magnesium - Chemistry sodium, serum 143 mmol/L 991-367 6897/01/10 carbon dioxide, venous blood 28.0 mmol/L 21.0-32.0 potassium, serum 4.5 mmol/L 3.5-5.2 chloride, serum 104 mmol/L 98-107 blood glucose 158 mg/dL 65-110 urea nitrogen, blood 23 mg/dL 7-18 creatinine, serum 1.06 mg/dL 0.55-1.30 alanine aminotransferase (SGPT), serum 42 U/L 12-78 aspartate aminotransferase (SGOT), serum 32 U/L 15-37 calcium, serum 9.3 mg/dL 8.5-10.1 bilirubin, serum, total 0.20 mg/dL 0.00-1.00 cholesterol, serum 177 mg/dL 195-190 7786/01/10 triglyceride, serum, fasting 320 mg/dL 30-200 HDL cholesterol, serum 46 mg/dL 32-96 LDL cholesterol, serum 67 mg/dL 0-130 Lab Report: COMPREHENSIVE METABOLIC PANEL, LIPID PANEL, HEMOGLOBIN A1c - Chemistry cholesterol, serum 135 mg/dL 972-299 3130/05/17 HDL cholesterol, serum 41 mg/dL > OR=46 triglyceride, serum, fasting 206 mg/dL <150 LDL cholesterol, serum 53 MG/DL (CALC) mg/dL <130 cholesterol/HDL ratio, serum 3.3 (calc) < OR=5.0 Lab Report: HGBA1C - Chemistry hemoglobin A1C, blood, as % of total hemoglobin 7.4 % 4.3-6.0 sodium, serum 140 mmol/L 288-572 0857/09/07 potassium, serum 4.3 mmol/L 3.5-5.2 chloride, serum [...] <30 Encounters Code Encounter Date Provider Facility CPT-68446 Level 4 Est. Patient 14:29:21 CDT Tu Landeros MD [facility] CPT-12245 Level 4 Est. Patient 09:08:17 LOCOMOTIVE OILER Tu Landeros MD [facility] CPT-57236 Level 4 Est. Patient 14:40:19 CDT Tu Landeros MD [facility] CPT-45232 Level 4 Est. Patient 14:06:04 LOCOMOTIVE OILER Tu Landeros MD [facility] CPT-66632 Level 3 Est. Patient 14:05:18 LOCOMOTIVE OILER Tu Landeros MD [facility] CPT-89318 Level 3 Est. Patient 10:06:54 LOCOMOTIVE OILER Mirandawinston Suresh APRN [facility] CPT-59705 Level 4 Est. Patient 13:50:18 LOCOMOTIVE OILER uT Landeros MD [facility] CPT-85388 Level 3 Est. Patient 10:30:04 CDT Tu Landeros MD [facility] CPT-99456 Level 4 Est. Patient 11:03:38 CDT Tu Landeros MD [facility] CPT-28966 Level 3 Est. Patient 10:20:44 CDT Fab Morales DO [facility] CPT-00421 Level 4 Est. Patient 14:38:57 CDT Tu Landeros MD [facility] CPT-40383 Level 4 Est. Patient 14:27:39 LOCOMOTIVE OILER Tu Landeros MD [facility] CPT-82539 Level 4 Est. Patient 09:45:25 CDT Tu Landeros MD [facility] CPT-84730 Level 4 Est. Patient 09:05:20 LOCOMOTIVE OILER Tu Landeros MD [facility] CPT-02081 Level 4 Est. Patient 14:09:06 CDT Tu Landeros MD [facility] CPT-67032 Level 3 Est. Patient 13:36:54 CDT Tu Landeros MD [facility] CPT-65455 Level 3 Est. Patient 08:59:14 CDT Tu Landeros MD [facility] CPT-80365 Level 3 Est. Patient 13:48:35 CDT Fab Morales DO [facility] CPT-83171 Level 4 Est. Patient 10:05:48 CDT Tu Landeros MD [facility] CPT-21554 Level 3 Est. Patient 13:38:42 CDT Marek BANKS [facility] CPT-31021 Level 5 Est. Patient 08:08:39 CDT Piyushrichajanelle Dawsontay FRANCIS [facility] CPT-54621 Level 4 Est. Patient 14:23:38 CDT Tu Landeros MD [facility] CPT-64217 Level 3 Est. Patient 11:44:04 CDT Tu Landeros MD [facility] CPT-25991 Level 3 Est. Patient 11:03:20 LOCOMOTIVE OILER Tu Landeros MD [facility] CPT-70420 Level 3 Est. Patient 11:03:14 LOCOMOTIVE OILER Tu Landeros MD [facility] CPT-96304 Level 3 Est. Patient 12:42:49 CDT Tu Landeros MD [facility] CPT-52913 Level 3 Est. Patient 11:52:06 CDT Tu Landeros MD [facility] CPT-77202 Level 3 Est. Patient 13:58:11 CDT Tu Landeros MD [facility] CPT-53472 Level 3 Est. Patient 17:50:07 CDT Fab Morales DO [facility] CPT-52341 Level 3 Est. Patient 12:06:29 CDT Elvira Cervantes MD PhD [facility] CPT-09125 Level 3 Est. Patient 15:50:32 CDT Tu Landeros MD [facility] CPT-86070 Level 4 Est. Patient 16:08:29 CDT Tu Landeros MD [facility] CPT-37103 Level 3 Est. Patient 16:04:19 CDT Tu Landeros MD [facility] CPT-14650 Level 3 Est. Patient 11:22:30 LOCOMOTIVE OILER Tu Landeros MD [facility] CPT-25476 Level 4 Est. Patient 16:24:02 LOCOMOTIVE OILER Tu Landeros MD [facility] CPT-68725 Level 3 Est. Patient 17:21:23 LOCOMOTIVE OILER Tu Landeros MD [facility] Procedures Code Procedure Name Date Entry Date Standard Description CPT-G0009 Administration of Pneumococcal Vaccine 15:08:26 CDT CPT-68667 Prevnar 13 Intramuscular Suspension 15:08:26 CDT 10/08 CPT-G0439 [facility] Annual Wellness Exam 14:29:22 CDT CPT-93448 Venipuncture Draw Fee 13:15:35 CDT CPT-23576 Magnesium - LAB USE ONLY 11:14:20 LOCOMOTIVE OILER CPT-62906 Lipid - LAB USE ONLY 11:14:20 LOCOMOTIVE OILER CPT-27502 HGBA1C - LAB USE ONLY 11:14:20 LOCOMOTIVE OILER CPT-89995 CMP - LAB USE ONLY 11:14:19 LOCOMOTIVE OILER CPT-94460 CBC - LAB USE ONLY 11:14:19 LOCOMOTIVE OILER CPT-89171 Venipuncture Draw Fee 11:14:18 LOCOMOTIVE OILER CPT-13775 First Vx - Ix admin for Medicare patients 16:46:52 CDT CPT-23784 Fluzone Preservative Free Intramuscular Suspension 16:46 :51 CDT CPT-24466 CBC - LAB USE ONLY 17:14:46 CDT CPT-49881 HGBA1C - LAB USE ONLY 17:14:46 CDT CPT-03374 Venipuncture Draw Fee 17:14:46 CDT CPT-G0438 Initial Annual Wellness Exam 14:13:04 CDT CPT-69824 Breathing Tx 10:06:54 LOCOMOTIVE OILER CPT-50527 Postop F/U Visit 10:02:45 CDT CPT-LR Lesion Removal 09:02:56 CDT CPT-JTINJ Asp/Joint Injection 15:51:27 LOCOMOTIVE OILER CPT-OV Office Visit 15:52:02 LOCOMOTIVE OILER CPT-OV Office Visit 15:45:11 CDT CPT-000 Give Zostavax 14:09:06 CDT CPT-71212 Administration single or combination vaccine inc oral 15 :19:04 CDT CPT-80328 Zoster Vaccine (Zostavax) 15:19:04 CDT CPT-59026 Administration single or combination vaccine inc oral 20 :51:03 CDT CPT-08314 Influenza split virus > age 3 20:51:03 CDT CPT-74061 No Charge Offi Visit 14:52:03 CDT CPT-OV Office Visit 14:57:43 CDT CPT-OV Office Visit 15:22:32 CDT CPT-53280 Administration single or combination vaccine inc oral 11 :33:15 CDT CPT-33417 Influenza split virus > age 3 11:33:15 CDT
--- OUTSIDE RECORDS SUMMARY | 2018-04-25 15:33 | XMS REPORT | Clinical Summary ---
Author Author Admin, SACHI Organization [employer] Address Unknown Phone Unavailable Allergies, Adverse Reactions, [...] Tu Landeros MD Disorders of magnesium metabolism HEALTH SCREENING ICD-V70.0 Inactive Elvira Cervantes MD PhD 2011 POSTMENOPAUSAL BLEEDING ICD-627.1 Inactive Elvira Cervantes MD PhD DIZZINESS ICD-780.4 Inactive Tu Landeros MD BENIGN PAROXYSMAL POSITIONAL VERTIGO ICD-386.11 Inactive Tu Landeros MD INSOMNIA, PERSISTENT ICD-307.42 Inactive Tu Landeros MD LEG CRAMPS, NOCTURNAL ICD-729.82 Inactive Tu Landeros MD FREQUENCY, URINARY ICD-788.41 Inactive Elvira Cervantes MD PhD FEVER UNSPECIFIED ICD-780.60 Inactive Tu Landeros MD MUSCLE SPASM ICD-728.85 Inactive Tu Landeros MD GASTROENTERITIS ICD-558.9 Inactive Tu Landeros MD SHOULDER PAIN, LEFT ICD-719.41 Inactive Tu Landeros MD RASH AND OTHER NONSPECIFIC SKIN ERUPTION ICD-782.1 Inactive Tu Landeros MD SCIATICA ICD-724.3 Inactive Tu Landeros MD 2012 CARPAL TUNNEL SYNDROME ICD-354.0 Inactive Tu Landeros MD ARTHRITIS ICD-716.90 Inactive Tu Landeros MD KNEE PAIN ICD-719.46 Inactive Tu Landeros MD PARESTHESIA ICD-782.0 Inactive Tu Landeros MD FATIGUE ICD-780.79 Inactive Tu Landeros MD 2012 LOCALIZED SUPERFICIAL SWELLING MASS OR LUMP ICD-782.2 Inactive Tu Landeros MD PRESSURE ULCER UNSPECIFIED SITE ICD-707.00 Inactive Tu Landeros MD CONTUSION OF UNSPECIFIED [...] ICD-388.70 Tessa Landeros MD Sebaceous cyst ICD-706.2 Inactive Tu Landeros MD Upper respiratory infection, viral ICD-465.9 Tessa Landeros MD Sinusitis - acute ICD-461.9 Tessa Landeros MD Leg pain, left ICD-729.5 Tessa Landeros MD ONYCHOMYCOSIS ICD-110.1 Inactive Tu Landeros MD Hot flashes ICD-627.2 Inactive Tu Landeros MD Vision impairment, both eyes, impairment level not further specified ICD- 369.20 Tessa Landeros MD Great toe pain ICD-729.5 Inactive Tu Landeros MD Shoulder pain, right ICD-719.41 Inactive Tu Landeros MD Pain in unspecified foot ICD-729.5 Inactive Tu Landeros MD Medication List Medication Instructions Start Date Stop Date Generic Name NDC Status Provider Patient Instruction DICLOFENAC SODIUM 75 MG ORAL TABLET DELAYED RELEASE 1 po BID PRN Pain DICLOFENAC SODIUM 67406132745 No Longer Active Tu Landeros MD Active GABAPENTIN 100 MG ORAL CAPSULE 1 po TID GABAPENTIN 85267671466 Active Tu Landeros MD Active DICLOFENAC SODIUM 50 MG ORAL TABLET DELAYED RELEASE 1 po BID PRN Pain DICLOFENAC SODIUM 01336156229 No Longer Active Tu Lnaderos MD Active CYCLOBENZAPRINE HCL 10 MG ORAL TABLET 1 po TID PRN Muscle Spasm CYCLOBENZAPRINE HCL 84327286630 No Longer Active Tu Landeros MD Active INVOKANA 100 MG ORAL TABLET 1 po qd CANAGLIFLOZIN 69807474130 Active Tu Landeros MD Active GLIPIZIDE 5 MG ORAL TABLET 1 po qd GLIPIZIDE 64300737773 No Longer Active Tu Landeros MD Active VENLAFAXINE HCL 75 MG ORAL TABLET 1 po BID VENLAFAXINE HCL 04149787483 Active Tu Landeros MD Active GLIMEPIRIDE 1 MG ORAL TABLET 1 po qd GLIMEPIRIDE 32740988157 No Longer Active Tu Landeros MD Active TRUE METRIX BLOOD GLUCOSE TEST IN VITRO STRIP Test blood sugar BID Dx: E11.9 GLUCOSE BLOOD 92309875595 Active Tu Landeros MD Active TRUE METRIX AIR GLUCOSE METER w/Device KIT Test blood glucose BID Dx: E11.9 BLOOD GLUCOSE MONITORING SUPPL 74191563752 Active Tu Landeros MD Active TRUETEST TEST IN VITRO STRIP test blood sugar twice daily. DX 250.0 GLUCOSE BLOOD 92711031461 No Longer Active Mirna Stanley LPN Active TRUEDRAW LANCING DEVICE test blood sugar twice daily dx: 250.00 LANCET DEVICES 05918708194 No Longer Active Mirna Stanley LPN Active ENALAPRIL MALEATE 20 MG ORAL TABLET 2 po qd ENALAPRIL MALEATE 43449812669 Active Tu Landeros MD Active SUPER B COMPLEX/VITAMIN C ORAL TABLET 1 qd B COMPLEX- C 49135870450 No Longer Active Tu Landeros MD Active ASPIRIN EC 81 MG ORAL TABLET DELAYED RELEASE 1 po qd ASPIRIN 26763226883 Active Tu Landeros MD Active GLUCOSAMINE 500 MG TABS 2 po qd GLUCOSAMINE Active Tu Landeros MD Active SIMVASTATIN 40 MG ORAL TABLET 0.5 po qHS SIMVASTATIN 56894093113 Active Tu Landeros MD Active FISH OIL 1000 MG ORAL CAPSULE 1 po qd OMEGA-3 FATTY ACIDS 03839001377 Active Tu Landeros MD Active METFORMIN HCL 1000 MG ORAL TABLET 1 po BID METFORMIN HCL 97455192646 Active Tu Landeros MD Active KLOR-CON 10 10 MEQ ORAL TABLET EXTENDED RELEASE 2 po qd POTASSIUM CHLORIDE 26620867979 Active Tu Landeros MD Active FUROSEMIDE 40 MG ORAL TABLET 1 po qd FUROSEMIDE 17301395170 Active Tu Landeros MD Active REQUIP 2 MG ORAL TABLET 1 po qHS PRN Restless legs ROPINIROLE HCL 76465464484 Active Tu Landeros MD Active REQUIP 2 MG ORAL TABLET Take one tablet at bedtime prn ROPINIROLE HCL 41455970994 No Longer Active Tu Landeros MD Active VENTOLIN HFA 108 (90 Base) MCG/ACT INHALATION AEROSOL SOLUTION 1-2 puffs every 4 hours if needed for cough/congestion ALBUTEROL SULFATE 75657820926 No Longer Active Ambika Aden APRN Active ZITHROMAX 250 MG ORAL TABLET 2 po today, then 1 po q days 2-5 AZITHROMYCIN 04208174083 No Longer Active Miranda Suresh APRN Active FLONASE 50 MCG/ACT NASAL SUSPENSION 1 spray each nostril twice daily until bottle empty FLUTICASONE PROPIONATE 07297771719 No Longer Active Tu Landeros MD Active COLACE 100 MG ORAL CAPSULE 1 po BID PRN Constipation DOCUSATE SODIUM 14713920708 Active Tu Lnaderos MD Active TRUERESULT BLOOD GLUCOSE w/Device KIT test blood sugar twice daily dx 250.00 BLOOD GLUCOSE MONITORING SUPPL 14867257025 No Longer Active Tu Landeros MD Active TRUEDRAW LANCING DEVICE Test twice a day dx 250.0 LANCET DEVICES 80780135689 No Longer Active Tu Landeros MD Active PREDNISONE 20 MG ORAL TABLET 2 tablets once daily for 2 days, then 1 tablet once daily for 2 days PREDNISONE 11072727996 No Longer Active Tu Landeros MD Active DICLOFENAC SODIUM 50 MG ORAL TABLET DELAYED RELEASE 1 tablet by mouth three times a day as needed DICLOFENAC SODIUM 00638739389 No Longer Active Fab Morales DO Active EMBRACE BLOOD GLUCOSE TEST IN VITRO STRIP test blood sugar twice daily DX 250.0 GLUCOSE BLOOD 89445267294 No Longer Active Tu Landeros MD Active TRUETEST TEST IN VITRO STRIP test blood sugar three times daily dx: 250.00 GLUCOSE BLOOD 89684994347 No Longer Active Suze VOGEL Active TRUERESULT BLOOD GLUCOSE w/Device KIT use to test blood sugar tid dx: 250.00 BLOOD GLUCOSE MONITORING SUPPL 40187773741 No Longer Active Suze VOGEL Active ALIGN 4 MG ORAL CAPSULE 1 tid PROBIOTIC PRODUCT 28656575833 No Longer Active Shaun Sy MD Active CIPRO 500 MG ORAL TABLET 1 bid x 14 days start 09-28-13 CIPROFLOXACIN HCL 96989638696 No Longer Active Shaun Sy MD Active TRAMADOL HCL 50 MG ORAL TABLET 1-2 tablets every 6 hours as needed for pain TRAMADOL HCL 88252848221 Active Tu Landeros MD Active HYDROCODONE-ACETAMINOPHEN 5-325 MG ORAL TABLET 1 tab by mouth every 6 hours as needed for pain HYDROCODONE-ACETAMINOPHEN 79870812549 No Longer Active Tu Landeros MD Active OMEPRAZOLE 20 MG ORAL CAPSULE DELAYED RELEASE 1 po q a.m. OMEPRAZOLE 44557684919 Active Fab Morales DO Active GABAPENTIN 100 MG ORAL CAPSULE 1 po bid GABAPENTIN 06494512906 No Longer Active Tu Landeros MD Active B-12 100 MCG ORAL TABLET Take one by mouth daily CYANOCOBALAMIN 62066271646 No Longer Active Tu Landeros MD Active BACTRIM DS 800-160 MG ORAL TABLET 1 bid x 14 day start 09-28-13 SULFAMETHOXAZOLE-TRIMETHOPRIM 80222946976 No Longer Active Tu Landeros MD Active CARVEDILOL 12.5 MG ORAL TABLET 1 po BID CARVEDILOL 94571909579 Active Tu Landeros MD Active TRILIPIX 135 MG ORAL CAPSULE DELAYED RELEASE 1 q hs CHOLINE FENOFIBRATE 06246624698 Active Tu Landeros MD Active FENOFIBRATE 145 MG ORAL TABLET 1 po qd FENOFIBRATE 02442670488 No Longer Active JASPREET Perez Active OMEPRAZOLE 20 MG ORAL TABLET DELAYED RELEASE 1 PO 30 MIN BEFORE 1ST MEAL 2010 OMEPRAZOLE 64978985578 No Longer Active JASPREET Perez Active SIMVASTATIN 40 MG ORAL TABLET Take one by mouth daily SIMVASTATIN 20669599053 No Longer Active JASPREET Perez Active VENLAFAXINE HCL 75 MG ORAL TABLET 1 po BID VENLAFAXINE HCL 16980968379 No Longer Active JASPREET Perez Active CIPRO 500 MG ORAL TABLET 1 tablet by mouth twice daily CIPROFLOXACIN HCL 90510637873 No Longer Active Tu Landeros MD Active VENLAFAXINE HCL 37.5 MG ORAL TABLET 1 po BID VENLAFAXINE HCL 64482259786 No Longer Active Suze VOGEL Active LAMISIL 250 MG ORAL TABLET 1 po qd TERBINAFINE HCL 32593578169 No Longer Active Tu Landeros MD Active LORTAB 5-500 MG ORAL TABLET 1/2 to 1 tablet by mouth every 4 hours as needed for pain HYDROCODONE-ACETAMINOPHEN 51657953613 No Longer Active Tu Landeros MD Active HYDROCODONE-ACETAMINOPHEN 5-500 MG ORAL TABLET take one po Q 4-6 hours prn HYDROCODONE-ACETAMINOPHEN 31675153229 No Longer Active Tu Landeros MD Active BACTRIM DS 800-160 MG ORAL TABLET 1 po BID x 7 days SULFAMETHOXAZOLE-TRIMETHOPRIM 94948713343 No Longer Active Tu Landeros MD Active VENLAFAXINE HCL 75 MG ORAL TABLET 1 po BID VENLAFAXINE HCL 81626972299 No Longer Active Elvira Cervantes MD PhD Active TRAMADOL HCL 50 MG ORAL TABLET 1 tablets every 6 hours as needed for pain TRAMADOL HCL 13991888367 No Longer Active Tu Landeros MD Active ACCU-CHEK FASTCLIX LANCETS Use to check bloodsugar three times daily as needed LANCETS 52466127523 No Longer Active Tu Landeros MD Active ACCU-CHEK KEYONA PLUS IN VITRO STRIP Use for testing bloodsugars three times daily as needed GLUCOSE BLOOD 22419565730 No Longer Active Tu Landeros MD Active ACCU-CHEK KEYONA PLUS w/Device KIT Use for testing bloodsugars three times daily as needed BLOOD GLUCOSE MONITORING SUPPL 48840260191 No Longer Active Tu Landeros MD Active SPIRONOLACTONE 25 MG ORAL TABLET 0.5 tablet by mouth daily 09/09 SPIRONOLACTONE 58176295093 No Longer Active Tu Landeros MD Active ALPRAZOLAM 0.5 MG ORAL TABLET 1 tab every 6hrs as needed ALPRAZOLAM 18632361461 No Longer Active Tu Landeros MD Active AUGMENTIN 875-125 MG ORAL TABLET 1 tab by mouth twice daily with food AMOXICILLIN-POT CLAVULANATE 29806520565 No Longer Active Tu Landeros MD Active PREDNISONE 20 MG ORAL TABLET 2 tabs daily for 3 days, 1 tab daily for 3 days, 1/2 tab daily for 2 days PREDNISONE 64686612889 No Longer Active Tu Landeros MD Active XANAX 0.5 MG ORAL TABLET 1 tablet every 6 hrs prn ALPRAZOLAM 55412481820 No Longer Active Tu Landeros MD Active PREDNISONE 20 MG ORAL TABLET 2 tabs daily for 3 days, 1 tab daily for 3 days, 1/2 tab daily for 2 days PREDNISONE 34722713161 No Longer Active Tu Landeros MD Active TRIAMCINOLONE ACETONIDE 0.1 % EXTERNAL OINTMENT Apply to affected areas TID for up to 2 weeks TRIAMCINOLONE ACETONIDE 91188384827 No Longer Active Tu Landeros MD Active LORTAB 5-500 MG ORAL TABLET 1/2 to 1 tablet by mouth every 4 hours as needed for pain HYDROCODONE-ACETAMINOPHEN 09242366334 No Longer Active Tu Landeros MD Active MULTIVITAMINS TABS Take one by mouth daily MULTIPLE VITAMIN 95851017606 No Longer Active Tu Landeros MD Active MELATONIN 5 MG ORAL TABLET Take one by mouth daily MELATONIN 81394378088 No Longer Active Tu Landeros MD Active SOMA 350 MG ORAL TABLET 1 po q 6 hours prn spasm CARISOPRODOL 90231304970 No Longer Active Tu Landeros MD Active MECLIZINE HCL 25 MG ORAL TABLET CHEWABLE 1 four times a day as needed for dizziness MECLIZINE HCL 48880817251 No Longer Active Fab Morales DO Active ANGEL BREEZE 2 TEST IN VITRO DISK test tid prn GLUCOSE BLOOD 91382586768 No Longer Active Negra Scott RN Active REGLAN 10 MG ORAL TABLET 1 po TID PRN Nausea METOCLOPRAMIDE HCL 72621146995 No Longer Active Tu Landeros MD Active METFORMIN HCL 500 MG ORAL TABLET 1 PO BID METFORMIN HCL 95255753447 No Longer Active Tu Landeros MD Active AMBIEN 10 MG ORAL TABLET 1 tab by mouth at bedtime as needed for sleep 06/10 ZOLPIDEM TARTRATE 74521974683 No Longer Active Tu Landeros MD Active FLUOXETINE HCL 40 MG ORAL CAPSULE 1 po q day FLUOXETINE HCL 28813239587 No Longer Active Mayra Terry Active TRILIPIX 135 MG ORAL CAPSULE DELAYED RELEASE 1 po qd CHOLINE FENOFIBRATE 90548573136 No Longer Active Tu Landeros MD Active AMBIEN 10 MG ORAL TABLET 1 tab by mouth at bedtime as needed for sleep 06/10 AMBIEN 10 MG ORAL TABLET 820634 ZOLPIDEM TARTRATE Inactive METFORMIN HCL 500 MG ORAL TABLET 1 PO BID METFORMIN HCL 500 MG ORAL TABLET 233526 METFORMIN HCL Inactive REGLAN 10 MG ORAL TABLET 1 po TID PRN Nausea REGLAN 10 MG ORAL TABLET 344669 METOCLOPRAMIDE HCL Inactive MECLIZINE HCL 25 MG ORAL TABLET CHEWABLE 1 four times a day as needed for dizziness MECLIZINE HCL 25 MG ORAL TABLET CHEWABLE 401132 MECLIZINE HCL Inactive SOMA 350 MG ORAL TABLET 1 po q 6 hours prn spasm SOMA 350 MG ORAL TABLET 359583 CARISOPRODOL Inactive MELATONIN 5 MG ORAL TABLET Take one by mouth daily MELATONIN 5 MG ORAL TABLET 267201 MELATONIN Inactive MULTIVITAMINS TABS Take one by mouth daily MULTIVITAMINS TABS MULTIPLE VITAMIN Inactive LORTAB 5-500 MG ORAL TABLET 1/2 to 1 tablet by mouth every 4 hours as needed for pain LORTAB 5-500 MG ORAL TABLET 549030 HYDROCODONE-ACETAMINOPHEN Inactive XANAX 0.5 MG ORAL TABLET 1 tablet every 6 hrs prn XANAX 0.5 MG ORAL TABLET 098817 ALPRAZOLAM Inactive AUGMENTIN 875-125 MG ORAL TABLET 1 tab by mouth twice daily with food AUGMENTIN 875-125 MG ORAL TABLET 406392 AMOXICILLIN-POT CLAVULANATE Inactive ALPRAZOLAM 0.5 MG ORAL TABLET 1 tab every 6hrs as needed ALPRAZOLAM 0.5 MG ORAL TABLET 122260 ALPRAZOLAM Inactive SPIRONOLACTONE 25 MG ORAL TABLET 0.5 tablet by mouth daily 09/09 SPIRONOLACTONE 25 MG ORAL TABLET 556735 SPIRONOLACTONE Inactive ACCU-CHEK KEYONA PLUS w/Device KIT [...] times daily as needed ACCU-CHEK FASTCLIX LANCETS 80059028817 LANCETS Inactive TRAMADOL HCL 50 MG ORAL TABLET 1 tablets every 6 hours as needed for pain TRAMADOL HCL 50 MG ORAL TABLET 833867 TRAMADOL HCL Inactive VENLAFAXINE HCL 75 MG ORAL TABLET 1 po BID VENLAFAXINE HCL 75 MG ORAL TABLET 554407 VENLAFAXINE HCL Inactive HYDROCODONE-ACETAMINOPHEN 5-500 MG ORAL TABLET take one po Q 4-6 hours prn HYDROCODONE-ACETAMINOPHEN 5-500 MG ORAL TABLET 646380 HYDROCODONE-ACETAMINOPHEN Inactive LORTAB 5-500 MG ORAL TABLET 1/2 to 1 tablet by mouth every 4 hours as needed for pain LORTAB 5-500 MG ORAL TABLET 104581 HYDROCODONE-ACETAMINOPHEN Inactive LAMISIL 250 MG ORAL TABLET 1 po qd LAMISIL 250 MG ORAL TABLET 417224 TERBINAFINE HCL Inactive VENLAFAXINE HCL 37.5 MG ORAL TABLET 1 po BID VENLAFAXINE HCL 37.5 MG ORAL TABLET 482817 VENLAFAXINE HCL Inactive CIPRO 500 MG ORAL TABLET 1 tablet by mouth twice daily CIPRO 500 MG ORAL TABLET 001842 CIPROFLOXACIN HCL Inactive VENLAFAXINE HCL 75 MG ORAL TABLET 1 po BID VENLAFAXINE HCL 75 MG ORAL TABLET 725514 VENLAFAXINE HCL Inactive SIMVASTATIN 40 MG ORAL TABLET Take one by mouth daily SIMVASTATIN 40 MG ORAL TABLET 888408 SIMVASTATIN Inactive OMEPRAZOLE 20 MG ORAL TABLET DELAYED RELEASE 1 PO 30 MIN BEFORE 1ST MEAL 2010 OMEPRAZOLE 20 MG ORAL TABLET DELAYED RELEASE 616561 OMEPRAZOLE Inactive FENOFIBRATE 145 MG ORAL TABLET 1 po qd FENOFIBRATE 145 MG ORAL TABLET 995697 FENOFIBRATE Inactive BACTRIM DS 800-160 MG ORAL TABLET 1 bid x 14 day start 09-28-13 BACTRIM DS 800-160 MG ORAL TABLET 975346 SULFAMETHOXAZOLE- TRIMETHOPRIM Inactive B-12 100 MCG ORAL TABLET Take one by mouth daily B-12 100 MCG ORAL TABLET CYANOCOBALAMIN Inactive GABAPENTIN 100 MG ORAL CAPSULE 1 po bid GABAPENTIN 100 MG ORAL CAPSULE 201715 GABAPENTIN Inactive HYDROCODONE-ACETAMINOPHEN 5-325 MG ORAL TABLET 1 tab by mouth every 6 hours as needed for pain HYDROCODONE-ACETAMINOPHEN 5-325 MG ORAL TABLET 247611 HYDROCODONE-ACETAMINOPHEN Inactive CIPRO 500 MG ORAL TABLET 1 bid x 14 days start 09-28-13 CIPRO 500 MG ORAL TABLET 128325 CIPROFLOXACIN HCL Inactive ALIGN 4 MG ORAL [...] SODIUM 50 MG ORAL TABLET DELAYED RELEASE 172601 DICLOFENAC SODIUM Inactive PREDNISONE 20 MG ORAL TABLET 2 tablets once daily for 2 days, then 1 tablet once daily for 2 days PREDNISONE 20 MG ORAL TABLET 478722 PREDNISONE Inactive TRUEDRAW LANCING DEVICE Test twice a day dx 250.0 TRUEDRAW LANCING DEVICE LANCET DEVICES Inactive TRUERESULT BLOOD GLUCOSE w/Device KIT test blood sugar twice daily dx 250.00 TRUERESULT BLOOD GLUCOSE w/Device KIT BLOOD GLUCOSE MONITORING SUPPL Inactive FLONASE 50 MCG/ACT NASAL SUSPENSION 1 spray each nostril twice daily until bottle empty FLONASE 50 MCG/ACT NASAL SUSPENSION 9259873 FLUTICASONE PROPIONATE Inactive VENTOLIN HFA 108 (90 Base) MCG/ACT INHALATION AEROSOL SOLUTION 1-2 puffs every 4 hours if needed for cough/congestion VENTOLIN HFA 108 (90 Base) MCG/ACT INHALATION AEROSOL SOLUTION ALBUTEROL SULFATE Inactive REQUIP 2 MG ORAL TABLET Take one tablet at bedtime prn REQUIP 2 MG ORAL TABLET 648688 ROPINIROLE HCL Inactive SUPER B COMPLEX/VITAMIN C ORAL TABLET 1 qd SUPER B COMPLEX/VITAMIN C ORAL TABLET 98472379722 B COMPLEX-C Inactive TRUEDRAW LANCING DEVICE test blood sugar twice daily dx: 250.00 TRUEDRAW LANCING DEVICE LANCET DEVICES Inactive TRUETEST TEST IN VITRO STRIP test blood sugar twice daily. DX 250.0 TRUETEST TEST IN VITRO STRIP GLUCOSE BLOOD Inactive CYCLOBENZAPRINE HCL 10 MG ORAL TABLET 1 po TID PRN Muscle Spasm CYCLOBENZAPRINE HCL 10 MG ORAL TABLET 836783 CYCLOBENZAPRINE HCL Inactive DICLOFENAC SODIUM 50 MG ORAL TABLET DELAYED RELEASE 1 po BID PRN Pain DICLOFENAC SODIUM 50 MG ORAL TABLET DELAYED RELEASE 726432 DICLOFENAC SODIUM Inactive DICLOFENAC SODIUM 75 MG ORAL TABLET DELAYED RELEASE 1 po BID PRN Pain DICLOFENAC SODIUM 75 MG ORAL TABLET DELAYED RELEASE 726908 DICLOFENAC SODIUM Inactive TRIAMCINOLONE ACETONIDE 0.1 % EXTERNAL OINTMENT Apply to affected areas TID for up to 2 weeks TRIAMCINOLONE ACETONIDE 0.1 % EXTERNAL OINTMENT 7132952 TRIAMCINOLONE ACETONIDE Inactive PREDNISONE 20 MG ORAL TABLET 2 tabs daily for 3 days, 1 tab daily for 3 days, 1/2 tab daily for 2 days PREDNISONE 20 MG ORAL TABLET 129524 PREDNISONE Inactive PREDNISONE 20 MG ORAL TABLET 2 tabs daily for 3 days, 1 tab daily for 3 days, 1/2 tab daily for 2 days PREDNISONE 20 MG ORAL TABLET 725094 PREDNISONE Inactive BACTRIM DS 800-160 MG ORAL TABLET 1 po BID x 7 days BACTRIM DS 800-160 MG ORAL TABLET 525054 SULFAMETHOXAZOLE-TRIMETHOPRIM Inactive ZITHROMAX 250 MG ORAL TABLET 2 po today, then 1 po q days 2-5 ZITHROMAX 250 MG ORAL TABLET 728305 AZITHROMYCIN Inactive Advance Directives Directive Description Start Date DISCUSSED WITH PATIENT -- NO DECISION MADE Immunizations Vaccine Administration Date Value Standard Description Seasonal influenza vaccine, injectable, containing preservative, for > 3 years old (Afluria, FluLaval, Fluzone, Fluvirin, Fluarix, Agriflu(>=18 yo)) Fluzone (>3 yrs.) [[id number]] Influenza, seasonal, injectable influenza immunization (Flu Vax) has been administered 02/22/2012 influenza virus vaccine, unspecified formulation Seasonal influenza vaccine, injectable, containing preservative, for > 3 years old (Afluria, FluLaval, Fluzone, Fluvirin, Fluarix, Agriflu(>=18 yo)) Fluzone (>3 yrs.) [[id number]] Influenza, seasonal, injectable Vital Signs Date Name [...] ... - Chemistry sodium, serum 141 mmol/L 609-001 3969/01/16 carbon dioxide, venous blood 28.3 mmol/L 21.0-32.0 [...] 6.7 % 4.3-6.0 cholesterol, serum 106 mg/dL 199-317 6795/01/16 triglyceride, serum, fasting 173 mg/dL 30-200 HDL [...] A1c - Chemistry cholesterol, serum 135 mg/dL 446-071 9332/05/17 HDL cholesterol, serum 41 mg/dL > OR=46 triglyceride, serum, fasting 206 mg/dL <150 LDL cholesterol, serum 53 MG/DL (CALC) mg/dL <130 cholesterol/HDL ratio, serum 3.3 (calc) < OR=5.0 Lab Report: HGBA1C - Chemistry hemoglobin A1C, blood, as % of total hemoglobin 6.5 % 4.3-6.0 Encounters Code Encounter Date Provider Facility CPT-59405 Level 3 Est. Patient 14:20:36 CDT Tu Landeros MD [facility] CPT-48870 Level 4 Est. Patient 14:28:34 CDT Tu Landeros MD [facility] CPT-50934 Level 3 Est. Patient 13:33:09 CDT Tu Landeros MD [facility] CPT-01916 Level 4 Est. Patient 14:29:21 CDT Tu Landeros MD [facility] CPT-21857 Level 4 Est. Patient 09:08:17 ETHNOARCHAEOLOGY PROFESSOR Tu Landeros MD [facility] CPT-90912 Level 4 Est. Patient 14:40:19 CDT Tu Landeros MD [facility] CPT-43223 Level 4 Est. Patient 14:06:04 ETHNOARCHAEOLOGY PROFESSOR Tu Landeros MD [facility] CPT-29337 Level 3 Est. Patient 14:05:18 ETHNOARCHAEOLOGY PROFESSOR Tu Landeros MD [facility] CPT-10428 Level 3 Est. Patient 10:06:54 ETHNOARCHAEOLOGY PROFESSOR Miranda Suresh APRN [facility] CPT-84748 Level 4 Est. Patient 13:50:18 ETHNOARCHAEOLOGY PROFESSOR Tu Landeros MD [facility] CPT-52459 Level 3 Est. Patient 10:30:04 CDT Tu Landeros MD [facility] CPT-93981 Level 4 Est. Patient 11:03:38 CDT Tu Landeros MD [facility] CPT-34977 Level 3 Est. Patient 10:20:44 CDT Fab Morales DO [facility] CPT-03289 Level 4 Est. Patient 14:38:57 CDT Tu Landeros MD [facility] CPT-70384 Level 4 Est. Patient 14:27:39 ETHNOARCHAEOLOGY PROFESSOR Tu Landeros MD [facility] CPT-87528 Level 4 Est. Patient 09:45:25 CDT Tu Landeros MD [facility] CPT-67279 Level 4 Est. Patient 09:05:20 ETHNOARCHAEOLOGY PROFESSOR Tu Landeros MD [facility] CPT-13568 Level 4 Est. Patient 14:09:06 CDT Tu Landeros MD [facility] CPT-94294 Level 3 Est. Patient 13:36:54 CDT Tu Landeros MD [facility] CPT-05539 Level 3 Est. Patient 08:59:14 CDT Tu Landeros MD [facility] CPT-71304 Level 3 Est. Patient 13:48:35 CDT Fab Morales DO [facility] CPT-59891 Level 4 Est. Patient 10:05:48 CDT Tu Landeros MD [facility] CPT-60410 Level 3 Est. Patient 13:38:42 CDT Marek BANKS [facility] CPT-95990 Level 5 Est. Patient 08:08:39 CDT Jerrica FRANCIS [facility] CPT-47540 Level 4 Est. Patient 14:23:38 CDT Tu Landeros MD [facility] CPT-62189 Level 3 Est. Patient 11:44:04 CDT Tu Landeros MD [facility] CPT-24631 Level 3 Est. Patient 11:03:20 ETHNOARCHAEOLOGY PROFESSOR Tu Landeros MD [facility] CPT-28816 Level 3 Est. Patient 11:03:14 ETHNOARCHAEOLOGY PROFESSOR Tu Landeros MD [facility] CPT-52209 Level 3 Est. Patient 12:42:49 CDT Tu Landeros MD [facility] CPT-00335 Level 3 Est. Patient 11:52:06 CDT Tu Landeros MD [facility] CPT-76791 Level 3 Est. Patient 13:58:11 CDT Tu Landeros MD [facility] CPT-64290 Level 3 Est. Patient 17:50:07 CDT Fab Morales DO [facility] CPT-93059 Level 3 Est. Patient 12:06:29 CDT Elvira Cervantes MD PhD [facility] CPT-56341 Level 3 Est. Patient 15:50:32 CDT Tu Landeros MD [facility] CPT-04722 Level 4 Est. Patient 16:08:29 CDT Tu Landeros MD [facility] CPT-26742 Level 3 Est. Patient 16:04:19 CDT Tu Landeros MD [facility] CPT-63990 Level 3 Est. Patient 11:22:30 ETHNOARCHAEOLOGY PROFESSOR Tu Landeros MD [facility] CPT-12849 Level 4 Est. Patient 16:24:02 ETHNOARCHAEOLOGY PROFESSOR Tu Landeros MD [facility] CPT-03476 Level 3 Est. Patient 17:21:23 ETHNOARCHAEOLOGY PROFESSOR Tu Landeros MD [facility] Procedures Code Procedure Name Date Entry Date Standard Description CPT-51095 Shoulder, right, comp min 2V - XRAY USE ONLY 13:50:22 CDT CPT-G0009 Administration of Pneumococcal Vaccine 15:08:26 CDT CPT-15048 Prevnar 13 Intramuscular Suspension 15:08:26 CDT 10/08 CPT-G0439 Subsequent Annual Wellness Exam 14:29:22 CDT CPT-51158 Venipuncture Draw Fee 13:15:35 CDT CPT-14561 Magnesium - LAB USE ONLY 11:14:20 ETHNOARCHAEOLOGY PROFESSOR CPT-02863 Lipid - LAB USE ONLY 11:14:20 ETHNOARCHAEOLOGY PROFESSOR CPT-90500 HGBA1C - LAB USE ONLY 11:14:20 ETHNOARCHAEOLOGY PROFESSOR CPT-43611 CMP - LAB USE ONLY 11:14:19 ETHNOARCHAEOLOGY PROFESSOR CPT-60153 CBC - LAB USE ONLY 11:14:19 ETHNOARCHAEOLOGY PROFESSOR CPT-14716 Venipuncture Draw Fee 11:14:18 ETHNOARCHAEOLOGY PROFESSOR CPT-43474 First Vx - Ix admin for Medicare patients 16:46:52 CDT CPT-00687 Fluzone Preservative Free Intramuscular Suspension 16:46 :51 CDT CPT-78213 CBC - LAB USE ONLY 17:14:46 CDT CPT-52463 HGBA1C - LAB USE ONLY 17:14:46 CDT CPT-71207 Venipuncture Draw Fee 17:14:46 CDT CPT-G0438 Initial Annual Wellness Exam 14:13:04 CDT CPT-29255 Breathing Tx 10:06:54 ETHNOARCHAEOLOGY PROFESSOR CPT-82034 Postop F/U Visit 10:02:45 CDT CPT-LR Lesion Removal 09:02:56 CDT CPT-JTINJ Asp/Joint Injection 15:51:27 ETHNOARCHAEOLOGY PROFESSOR CPT-OV Office Visit 15:52:02 ETHNOARCHAEOLOGY PROFESSOR CPT-OV Office Visit 15:45:11 CDT CPT-000 Give Zostavax 14:09:06 CDT CPT-92911 Administration single or combination vaccine inc oral 15 :19:04 CDT CPT-58179 Zoster Vaccine (Zostavax) 15:19:04 CDT CPT-32725 Administration single or combination vaccine inc oral 20 :51:03 CDT CPT-62354 Influenza split virus > age 3 20:51:03 CDT CPT-78494 No Charge Offi Visit 14:52:03 CDT CPT-OV Office Visit 14:57:43 CDT CPT-OV Office Visit 15:22:32 CDT CPT-98267 Administration single or combination vaccine inc oral 11 :33:15 CDT CPT-40588 Influenza split virus > age 3 11:33:15 CDT
--- OUTSIDE RECORDS SUMMARY | 2018-04-25 15:35 | XMS REPORT | Clinical Summary ---
Author Author Admin, SACHI Organization [facility] Address Unknown Phone Unavailable Allergies, Adverse Reactions, [...] SWELLING MASS OR LUMP ICD-782.2 Inactive Tu Landerso MD ONYCHOMYCOSIS ICD-110.1 Inactive Tu Landeros MD [...] 1 po BID PRN Pain DICLOFENAC SODIUM 35949738728 Active Tu Landeros MD Active GABAPENTIN 100 MG ORAL CAPSULE 1 po TID GABAPENTIN 71936046830 Active Tu Landeros MD Active DICLOFENAC SODIUM 50 MG ORAL TABLET DELAYED RELEASE 1 po BID PRN Pain DICLOFENAC SODIUM 54781063144 No Longer Active Tu Landeros MD Active CYCLOBENZAPRINE HCL 10 MG ORAL TABLET 1 po TID PRN Muscle Spasm CYCLOBENZAPRINE HCL 17189709509 No Longer Active Tu Landeros MD Active INVOKANA 100 MG ORAL TABLET 1 po qd CANAGLIFLOZIN 13077239026 Active Tu Landeros MD Active GLIPIZIDE 5 MG ORAL TABLET 1 po qd GLIPIZIDE 98671185411 No Longer Active Tu Landeros MD Active VENLAFAXINE HCL 75 MG ORAL TABLET 1 po BID VENLAFAXINE HCL 51873111675 Active Tu Landeros MD Active GLIMEPIRIDE 1 MG ORAL TABLET 1 po qd GLIMEPIRIDE 50670537269 No Longer Active Tu Landeros MD Active TRUE METRIX BLOOD GLUCOSE TEST IN VITRO STRIP Test blood sugar BID Dx: E11.9 GLUCOSE BLOOD 32416555136 Active Tu Landeros MD Active TRUE METRIX AIR GLUCOSE METER w/Device KIT Test blood glucose BID Dx: E11.9 BLOOD GLUCOSE MONITORING SUPPL 54402522866 Active Tu Landeros MD Active TRUETEST TEST IN VITRO STRIP test blood sugar twice daily. DX 250.0 GLUCOSE BLOOD 14641947924 No Longer Active Mirna Stanley LPN Active TRUEDRAW LANCING DEVICE test blood sugar twice daily dx: 250.00 LANCET DEVICES 10202840065 No Longer Active Mirna Stanley LPN Active ENALAPRIL MALEATE 20 MG ORAL TABLET 2 po qd ENALAPRIL MALEATE 91617633856 Active Tu Landeros MD Active SUPER B COMPLEX/VITAMIN C ORAL TABLET 1 qd B COMPLEX- C 24710307818 No Longer Active Tu Landeros MD Active ASPIRIN EC 81 MG ORAL TABLET DELAYED RELEASE 1 po qd ASPIRIN 14255674316 Active Tu Landeros MD Active GLUCOSAMINE 500 MG TABS 2 po qd GLUCOSAMINE Active Tu Landeros MD Active SIMVASTATIN 40 MG ORAL TABLET 0.5 po qHS SIMVASTATIN 67269344284 Active Tu Landeros MD Active FISH OIL 1000 MG ORAL CAPSULE 1 po qd OMEGA-3 FATTY ACIDS 71015076326 Active Tu Landeros MD Active METFORMIN HCL 1000 MG ORAL TABLET 1 po BID METFORMIN HCL 85435174423 Active Tu Landeros MD Active KLOR-CON 10 10 MEQ ORAL TABLET EXTENDED RELEASE 2 po qd POTASSIUM CHLORIDE 84162964452 Active Tu Landeros MD Active FUROSEMIDE 40 MG ORAL TABLET 1 po qd FUROSEMIDE 02169901965 Active Tu Landeros MD Active REQUIP 2 MG ORAL TABLET 1 po qHS PRN Restless legs ROPINIROLE HCL 58103534180 Active Tu Landeros MD Active REQUIP 2 MG ORAL TABLET Take one tablet at bedtime prn ROPINIROLE HCL 59891627645 No Longer Active Tu Landeros MD Active VENTOLIN HFA 108 (90 Base) MCG/ACT INHALATION AEROSOL SOLUTION 1-2 puffs every 4 hours if needed for cough/congestion ALBUTEROL SULFATE 57595085500 No Longer Active Ambika Aden APRN Active ZITHROMAX 250 MG ORAL TABLET 2 po today, then 1 po q days 2-5 AZITHROMYCIN 48087848453 No Longer Active Miranda Suresh APRN Active FLONASE 50 MCG/ACT NASAL SUSPENSION 1 spray each nostril twice daily until bottle empty FLUTICASONE PROPIONATE 51329433630 No Longer Active Tu Landeros MD Active COLACE 100 MG ORAL CAPSULE 1 po BID PRN Constipation DOCUSATE SODIUM 10348304567 Active Tu Landeros MD Active TRUERESULT BLOOD GLUCOSE w/Device KIT test blood sugar twice daily dx 250.00 BLOOD GLUCOSE MONITORING SUPPL 09034279117 No Longer Active Tu Landeros MD Active TRUEDRAW LANCING DEVICE Test twice a day dx 250.0 LANCET DEVICES 48574328294 No Longer Active Tu Landeros MD Active PREDNISONE 20 MG ORAL TABLET 2 tablets once daily for 2 days, then 1 tablet once daily for 2 days PREDNISONE 06958494093 No Longer Active Tu Landeros MD Active DICLOFENAC SODIUM 50 MG ORAL TABLET DELAYED RELEASE 1 tablet by mouth three times a day as needed DICLOFENAC SODIUM 18922778199 No Longer Active Fab Morales DO Active EMBRACE BLOOD GLUCOSE TEST IN VITRO STRIP test blood sugar twice daily DX 250.0 GLUCOSE BLOOD 55865505555 No Longer Active Tu Landeros MD Active TRUETEST TEST IN VITRO STRIP test blood sugar three times daily dx: 250.00 GLUCOSE BLOOD 81227434605 No Longer Active Suze Corey RMA Active TRUERESULT BLOOD GLUCOSE w/Device KIT use to test blood sugar tid dx: 250.00 BLOOD GLUCOSE MONITORING SUPPL 34721256212 No Longer Active Suze Corey RMA Active ALIGN 4 MG ORAL CAPSULE 1 tid PROBIOTIC PRODUCT 55326251179 No Longer Active Shaun Sy MD Active CIPRO 500 MG ORAL TABLET 1 bid x 14 days start 09-28-13 CIPROFLOXACIN HCL 36109616094 No Longer Active Shaun Sy MD Active TRAMADOL HCL 50 MG ORAL TABLET 1-2 tablets every 6 hours as needed for pain TRAMADOL HCL 46974649501 Active Tu Landeros MD Active HYDROCODONE-ACETAMINOPHEN 5-325 MG ORAL TABLET 1 tab by mouth every 6 hours as needed for pain HYDROCODONE-ACETAMINOPHEN 80119598949 No Longer Active Tu Landeros MD Active OMEPRAZOLE 20 MG ORAL CAPSULE DELAYED RELEASE 1 po q a.m. OMEPRAZOLE 66308836580 Active Fab Morales DO Active GABAPENTIN 100 MG ORAL CAPSULE 1 po bid GABAPENTIN 99139747503 No Longer Active Tu Landeros MD Active B-12 100 MCG ORAL TABLET Take one by mouth daily CYANOCOBALAMIN 11695020546 No Longer Active Tu Landeros MD Active BACTRIM DS 800-160 MG ORAL TABLET 1 bid x 14 day start 09-28-13 SULFAMETHOXAZOLE-TRIMETHOPRIM 79199600101 No Longer Active Tu Landeros MD Active CARVEDILOL 12.5 MG ORAL TABLET 1 po BID CARVEDILOL 58817207825 Active Tu Landeros MD Active TRILIPIX 135 MG ORAL CAPSULE DELAYED RELEASE 1 q hs CHOLINE FENOFIBRATE 64156350669 Active Tu Landeros MD Active FENOFIBRATE 145 MG ORAL TABLET 1 po qd FENOFIBRATE 22207401277 No Longer Active JASPREET Perez Active OMEPRAZOLE 20 MG ORAL TABLET DELAYED RELEASE 1 PO 30 MIN BEFORE 1ST MEAL 2010 OMEPRAZOLE 41886906651 No Longer Active JASPREET Perez Active SIMVASTATIN 40 MG ORAL TABLET Take one by mouth daily SIMVASTATIN 94886321631 No Longer Active JASPREET Perez Active VENLAFAXINE HCL 75 MG ORAL TABLET 1 po BID VENLAFAXINE HCL 73105629715 No Longer Active JASPREET Perez Active CIPRO 500 MG ORAL TABLET 1 tablet by mouth twice daily CIPROFLOXACIN HCL 59984083395 No Longer Active Tu Landeros MD Active VENLAFAXINE HCL 37.5 MG ORAL TABLET 1 po BID VENLAFAXINE HCL 38217781245 No Longer Active Suze VOGEL Active LAMISIL 250 MG ORAL TABLET 1 po qd TERBINAFINE HCL 50769596237 No Longer Active Tu Landeros MD Active LORTAB 5-500 MG ORAL TABLET 1/2 to 1 tablet by mouth every 4 hours as needed for pain HYDROCODONE-ACETAMINOPHEN 38613686553 No Longer Active Tu Landeros MD Active HYDROCODONE-ACETAMINOPHEN 5-500 MG ORAL TABLET take one po Q 4-6 hours prn HYDROCODONE-ACETAMINOPHEN 75707352042 No Longer Active Tu Landeros MD Active BACTRIM DS 800-160 MG ORAL TABLET 1 po BID x 7 days SULFAMETHOXAZOLE-TRIMETHOPRIM 32464140535 No Longer Active Tu Landeros MD Active VENLAFAXINE HCL 75 MG ORAL TABLET 1 po BID VENLAFAXINE HCL 95735386742 No Longer Active Elvira Cervantes MD PhD Active TRAMADOL HCL 50 MG ORAL TABLET 1 tablets every 6 hours as needed for pain TRAMADOL HCL 30688938584 No Longer Active Tu Landeros MD Active ACCU-CHEK FASTCLIX LANCETS Use to check bloodsugar three times daily as needed LANCETS 48637729060 No Longer Active Tu Landeros MD Active ACCU-CHEK KEYONA PLUS IN VITRO STRIP Use for testing bloodsugars three times daily as needed GLUCOSE BLOOD 60455586806 No Longer Active Tu Landeros MD Active ACCU-CHEK KEYONA PLUS w/Device KIT Use for testing bloodsugars three times daily as needed BLOOD GLUCOSE MONITORING SUPPL 24645087854 No Longer Active Tu Landeros MD Active SPIRONOLACTONE 25 MG ORAL TABLET 0.5 tablet by mouth daily 09/09 SPIRONOLACTONE 98465167353 No Longer Active Tu Landeros MD Active ALPRAZOLAM 0.5 MG ORAL TABLET 1 tab every 6hrs as needed ALPRAZOLAM 54228133106 No Longer Active Tu Landeros MD Active AUGMENTIN 875-125 MG ORAL TABLET 1 tab by mouth twice daily with food AMOXICILLIN-POT CLAVULANATE 61878007624 No Longer Active Tu Landeros MD Active PREDNISONE 20 MG ORAL TABLET 2 tabs daily for 3 days, 1 tab daily for 3 days, 1/2 tab daily for 2 days PREDNISONE 77831782801 No Longer Active Tu Landeros MD Active XANAX 0.5 MG ORAL TABLET 1 tablet every 6 hrs prn ALPRAZOLAM 66660045644 No Longer Active Tu Landeros MD Active PREDNISONE 20 MG ORAL TABLET 2 tabs daily for 3 days, 1 tab daily for 3 days, 1/2 tab daily for 2 days PREDNISONE 15736985732 No Longer Active Tu Landeros MD Active TRIAMCINOLONE ACETONIDE 0.1 % EXTERNAL OINTMENT Apply to affected areas TID for up to 2 weeks TRIAMCINOLONE ACETONIDE 91698513236 No Longer Active Tu Landeros MD Active LORTAB 5-500 MG ORAL TABLET 1/2 to 1 tablet by mouth every 4 hours as needed for pain HYDROCODONE-ACETAMINOPHEN 54802403552 No Longer Active Tu Landeros MD Active MULTIVITAMINS TABS Take one by mouth daily MULTIPLE VITAMIN 11077918916 No Longer Active Tu Landeros MD Active MELATONIN 5 MG ORAL TABLET Take one by mouth daily MELATONIN 73705185484 No Longer Active Tu Landeros MD Active SOMA 350 MG ORAL TABLET 1 po q 6 hours prn spasm CARISOPRODOL 77298847046 No Longer Active Tu Landeros MD Active MECLIZINE HCL 25 MG ORAL TABLET CHEWABLE 1 four times a day as needed for dizziness MECLIZINE HCL 54163337396 No Longer Active Fab Morales DO Active ANGEL BREEZE 2 TEST IN VITRO DISK test tid prn GLUCOSE BLOOD 65428507663 No Longer Active Negra Scott RN Active REGLAN 10 MG ORAL TABLET 1 po TID PRN Nausea METOCLOPRAMIDE HCL 74927542136 No Longer Active Tu Landeros MD Active METFORMIN HCL 500 MG ORAL TABLET 1 PO BID METFORMIN HCL 70343344628 No Longer Active Tu Landeros MD Active AMBIEN 10 MG ORAL TABLET 1 tab by mouth at bedtime as needed for sleep 06/10 ZOLPIDEM TARTRATE 36678873202 No Longer Active Tu Landeros MD Active FLUOXETINE HCL 40 MG ORAL CAPSULE 1 po q day FLUOXETINE HCL 51828271834 No Longer Active Mayra [place] Active TRILIPIX 135 MG ORAL CAPSULE DELAYED RELEASE 1 po qd CHOLINE FENOFIBRATE 85089097240 No Longer Active Tu Landeros MD Active AMBIEN 10 MG ORAL TABLET 1 tab by mouth at bedtime as needed for sleep 06/10 AMBIEN 10 MG ORAL TABLET 727536 ZOLPIDEM TARTRATE Inactive METFORMIN HCL 500 MG ORAL TABLET 1 PO BID METFORMIN HCL 500 MG ORAL TABLET 574638 METFORMIN HCL Inactive REGLAN 10 MG ORAL TABLET 1 po TID PRN Nausea REGLAN 10 MG ORAL TABLET 852988 METOCLOPRAMIDE HCL Inactive MECLIZINE HCL 25 MG ORAL TABLET CHEWABLE 1 four times a day as needed for dizziness MECLIZINE HCL 25 MG ORAL TABLET CHEWABLE 641884 MECLIZINE HCL Inactive SOMA 350 MG ORAL TABLET 1 po q 6 hours prn spasm SOMA 350 MG ORAL TABLET 461090 CARISOPRODOL Inactive MELATONIN 5 MG ORAL TABLET Take one by mouth daily MELATONIN 5 MG ORAL TABLET 168781 MELATONIN Inactive MULTIVITAMINS TABS Take one by mouth daily MULTIVITAMINS TABS MULTIPLE VITAMIN Inactive LORTAB 5-500 MG ORAL TABLET 1/2 to 1 tablet by mouth every 4 hours as needed for pain LORTAB 5-500 MG ORAL TABLET 817998 HYDROCODONE-ACETAMINOPHEN Inactive XANAX 0.5 MG ORAL TABLET 1 tablet every 6 hrs prn XANAX 0.5 MG ORAL TABLET 355312 ALPRAZOLAM Inactive AUGMENTIN 875-125 MG ORAL TABLET 1 tab by mouth twice daily with food AUGMENTIN 875-125 MG ORAL TABLET 129335 AMOXICILLIN-POT CLAVULANATE Inactive ALPRAZOLAM 0.5 MG ORAL TABLET 1 tab every 6hrs as needed ALPRAZOLAM 0.5 MG ORAL TABLET 002629 ALPRAZOLAM Inactive SPIRONOLACTONE 25 MG ORAL TABLET 0.5 tablet by mouth daily 09/09 SPIRONOLACTONE 25 MG ORAL TABLET 793146 SPIRONOLACTONE Inactive ACCU-CHEK KEYONA PLUS w/Device KIT [...] times daily as needed ACCU-CHEK FASTCLIX LANCETS 93037172258 LANCETS Inactive TRAMADOL HCL 50 MG ORAL TABLET 1 tablets every 6 hours as needed for pain TRAMADOL HCL 50 MG ORAL TABLET 480539 TRAMADOL HCL Inactive VENLAFAXINE HCL 75 MG ORAL TABLET 1 po BID VENLAFAXINE HCL 75 MG ORAL TABLET 582680 VENLAFAXINE HCL Inactive HYDROCODONE-ACETAMINOPHEN 5-500 MG ORAL TABLET take one po Q 4-6 hours prn HYDROCODONE-ACETAMINOPHEN 5-500 MG ORAL TABLET 424359 HYDROCODONE-ACETAMINOPHEN Inactive LORTAB 5-500 MG ORAL TABLET 1/2 to 1 tablet by mouth every 4 hours as needed for pain LORTAB 5-500 MG ORAL TABLET 570845 HYDROCODONE-ACETAMINOPHEN Inactive LAMISIL 250 MG ORAL TABLET 1 po qd LAMISIL 250 MG ORAL TABLET 582640 TERBINAFINE HCL Inactive VENLAFAXINE HCL 37.5 MG ORAL TABLET 1 po BID VENLAFAXINE HCL 37.5 MG ORAL TABLET 888095 VENLAFAXINE HCL Inactive CIPRO 500 MG ORAL TABLET 1 tablet by mouth twice daily CIPRO 500 MG ORAL TABLET 894824 CIPROFLOXACIN HCL Inactive VENLAFAXINE HCL 75 MG ORAL TABLET 1 po BID VENLAFAXINE HCL 75 MG ORAL TABLET 407959 VENLAFAXINE HCL Inactive SIMVASTATIN 40 MG ORAL TABLET Take one by mouth daily SIMVASTATIN 40 MG ORAL TABLET 547261 SIMVASTATIN Inactive OMEPRAZOLE 20 MG ORAL TABLET DELAYED RELEASE 1 PO 30 MIN BEFORE 1ST MEAL 2010 OMEPRAZOLE 20 MG ORAL TABLET DELAYED RELEASE 178102 OMEPRAZOLE Inactive FENOFIBRATE 145 MG ORAL TABLET 1 po qd FENOFIBRATE 145 MG ORAL TABLET 086369 FENOFIBRATE Inactive BACTRIM DS 800-160 MG ORAL TABLET 1 bid x 14 day start 09-28-13 BACTRIM DS 800-160 MG ORAL TABLET 644244 SULFAMETHOXAZOLE- TRIMETHOPRIM Inactive B-12 100 MCG ORAL TABLET Take one by mouth daily B-12 100 MCG ORAL TABLET CYANOCOBALAMIN Inactive GABAPENTIN 100 MG ORAL CAPSULE 1 po bid GABAPENTIN 100 MG ORAL CAPSULE 093117 GABAPENTIN Inactive HYDROCODONE-ACETAMINOPHEN 5-325 MG ORAL TABLET 1 tab by mouth every 6 hours as needed for pain HYDROCODONE-ACETAMINOPHEN 5-325 MG ORAL TABLET 356752 HYDROCODONE-ACETAMINOPHEN Inactive CIPRO 500 MG ORAL TABLET 1 bid x 14 days start 09-28-13 CIPRO 500 MG ORAL TABLET 865205 CIPROFLOXACIN HCL Inactive ALIGN 4 MG ORAL [...] SODIUM 50 MG ORAL TABLET DELAYED RELEASE 044700 DICLOFENAC SODIUM Inactive PREDNISONE 20 MG ORAL TABLET 2 tablets once daily for 2 days, then 1 tablet once daily for 2 days PREDNISONE 20 MG ORAL TABLET 843590 PREDNISONE Inactive TRUEDRAW LANCING DEVICE Test twice a day dx 250.0 TRUEDRAW LANCING DEVICE LANCET DEVICES Inactive TRUERESULT BLOOD GLUCOSE w/Device KIT test blood sugar twice daily dx 250.00 TRUERESULT BLOOD GLUCOSE w/Device KIT BLOOD GLUCOSE MONITORING SUPPL Inactive FLONASE 50 MCG/ACT NASAL SUSPENSION 1 spray each nostril twice daily until bottle empty FLONASE 50 MCG/ACT NASAL SUSPENSION 5751894 FLUTICASONE PROPIONATE Inactive VENTOLIN HFA 108 (90 Base) MCG/ACT INHALATION AEROSOL SOLUTION 1-2 puffs every 4 hours if needed for cough/congestion VENTOLIN HFA 108 (90 Base) MCG/ACT INHALATION AEROSOL SOLUTION ALBUTEROL SULFATE Inactive REQUIP 2 MG ORAL TABLET Take one tablet at bedtime prn REQUIP 2 MG ORAL TABLET 000070 ROPINIROLE HCL Inactive SUPER B COMPLEX/VITAMIN C ORAL TABLET 1 qd SUPER B COMPLEX/VITAMIN C ORAL TABLET 71304429061 B COMPLEX-C Inactive TRUEDRAW LANCING DEVICE test blood sugar twice daily dx: 250.00 TRUEDRAW LANCING DEVICE LANCET DEVICES Inactive TRUETEST TEST IN VITRO STRIP test blood sugar twice daily. DX 250.0 TRUETEST TEST IN VITRO STRIP GLUCOSE BLOOD Inactive CYCLOBENZAPRINE HCL 10 MG ORAL TABLET 1 po TID PRN Muscle Spasm CYCLOBENZAPRINE HCL 10 MG ORAL TABLET 349602 CYCLOBENZAPRINE HCL Inactive DICLOFENAC SODIUM 50 MG ORAL TABLET DELAYED RELEASE 1 po BID PRN Pain DICLOFENAC SODIUM 50 MG ORAL TABLET DELAYED RELEASE 600238 DICLOFENAC SODIUM Inactive TRIAMCINOLONE ACETONIDE 0.1 % EXTERNAL OINTMENT Apply to affected areas TID for up to 2 weeks TRIAMCINOLONE ACETONIDE 0.1 % EXTERNAL OINTMENT 0092208 TRIAMCINOLONE ACETONIDE Inactive PREDNISONE 20 MG ORAL TABLET 2 tabs daily for 3 days, 1 tab daily for 3 days, 1/2 tab daily for 2 days PREDNISONE 20 MG ORAL TABLET 397770 PREDNISONE Inactive PREDNISONE 20 MG ORAL TABLET 2 tabs daily for 3 days, 1 tab daily for 3 days, 1/2 tab daily for 2 days PREDNISONE 20 MG ORAL TABLET 596103 PREDNISONE Inactive BACTRIM DS 800-160 MG ORAL TABLET 1 po BID x 7 days BACTRIM DS 800-160 MG ORAL TABLET 007791 SULFAMETHOXAZOLE-TRIMETHOPRIM Inactive ZITHROMAX 250 MG ORAL TABLET 2 po today, then 1 po q days 2-5 ZITHROMAX 250 MG ORAL TABLET 982857 AZITHROMYCIN Inactive Advance Directives Directive Description Start Date DISCUSSED WITH PATIENT -- NO DECISION MADE Immunizations Vaccine Administration Date Value Standard Description Seasonal influenza vaccine, injectable, containing preservative, for > 3 years old (Afluria, FluLaval, Fluzone, Fluvirin, Fluarix, Agriflu(>=18 yo)) Fluzone (>3 yrs.) [[id number]] Influenza, seasonal, injectable influenza immunization (Flu Vax) has been administered 02/22/2012 influenza virus vaccine, unspecified formulation Seasonal influenza vaccine, injectable, containing preservative, for > 3 years old (Afluria, FluLaval, Fluzone, Fluvirin, Fluarix, Agriflu(>=18 yo)) Fluzone (>3 yrs.) [[id number]] Influenza, seasonal, injectable Vital Signs Date Name [...] Magnesium - Chemistry sodium, serum 143 mmol/L 876-212 6751/01/10 carbon dioxide, venous blood 28.0 mmol/L 21.0-32.0 potassium, serum 4.5 mmol/L 3.5-5.2 chloride, serum 104 mmol/L 98-107 blood glucose 158 mg/dL 65-110 urea nitrogen, blood 23 mg/dL 7-18 creatinine, serum 1.06 mg/dL 0.55-1.30 alanine aminotransferase (SGPT), serum 42 U/L 12-78 aspartate aminotransferase (SGOT), serum 32 U/L 15-37 calcium, serum 9.3 mg/dL 8.5-10.1 bilirubin, serum, total 0.20 mg/dL 0.00-1.00 cholesterol, serum 177 mg/dL 337-765 5152/01/10 triglyceride, serum, fasting 320 mg/dL 30-200 HDL cholesterol, serum 46 mg/dL 32-96 LDL cholesterol, serum 67 mg/dL 0-130 Lab Report: COMPREHENSIVE METABOLIC PANEL, LIPID PANEL, HEMOGLOBIN A1c - Chemistry cholesterol, serum 135 mg/dL 785-657 1013/05/17 HDL cholesterol, serum 41 mg/dL > OR=46 [...] <30 Encounters Code Encounter Date Provider Facility CPT-07492 Level 3 Est. Patient 14:20:36 CDT Tu Landeros MD [facility] CPT-19305 Level 4 Est. Patient 14:28:34 CDT Tu Landeros MD [facility] CPT-29441 Level 3 Est. Patient 13:33:09 CDT Tu Landeros MD [facility] CPT-74436 Level 4 Est. Patient 14:29:21 CDT Tu Landeros MD [facility] CPT-58641 Level 4 Est. Patient 09:08:17 PLACEMENT SPECIALIST Tu Landeros MD [facility] CPT-16123 Level 4 Est. Patient 14:40:19 CDT Tu Landeros MD [facility] CPT-90697 Level 4 Est. Patient 14:06:04 PLACEMENT SPECIALIST Tu Landeros MD [facility] CPT-69186 Level 3 Est. Patient 14:05:18 PLACEMENT SPECIALIST Tu Landeros MD [facility] CPT-75763 Level 3 Est. Patient 10:06:54 PLACEMENT SPECIALIST Miranda Suresh APRN [facility] CPT-92436 Level 4 Est. Patient 13:50:18 PLACEMENT SPECIALIST Tu Landeros MD [facility] CPT-14218 Level 3 Est. Patient 10:30:04 CDT Tu Landeros MD [facility] CPT-38131 Level 4 Est. Patient 11:03:38 CDT Tu Landeros MD [facility] CPT-80251 Level 3 Est. Patient 10:20:44 CDT Fab Morales DO [facility] CPT-83369 Level 4 Est. Patient 14:38:57 CDT Tu Landeros MD [facility] CPT-79747 Level 4 Est. Patient 14:27:39 PLACEMENT SPECIALIST Tu Landeros MD [facility] CPT-61203 Level 4 Est. Patient 09:45:25 CDT Tu Landeros MD [facility] CPT-24175 Level 4 Est. Patient 09:05:20 PLACEMENT SPECIALIST Tu Landeros MD [facility] CPT-77635 Level 4 Est. Patient 14:09:06 CDT Tu Landeros MD [facility] CPT-11733 Level 3 Est. Patient 13:36:54 CDT Tu Landeros MD [facility] CPT-81189 Level 3 Est. Patient 08:59:14 CDT Tu Landeros MD [facility] CPT-25135 Level 3 Est. Patient 13:48:35 CDT Fab Morales DO [facility] CPT-41640 Level 4 Est. Patient 10:05:48 CDT Tu Landeros MD [facility] CPT-88710 Level 3 Est. Patient 13:38:42 CDT Marek BANKS [facility] CPT-08911 Level 5 Est. Patient 08:08:39 CDT Jerrica FRANCIS [facility] CPT-13672 Level 4 Est. Patient 14:23:38 CDT Tu Landeros MD [facility] CPT-53271 Level 3 Est. Patient 11:44:04 CDT Tu Landeros MD [facility] CPT-03164 Level 3 Est. Patient 11:03:20 PLACEMENT SPECIALIST Tu Landeros MD [facility] CPT-55317 Level 3 Est. Patient 11:03:14 PLACEMENT SPECIALIST Tu Landeros MD [facility] CPT-07465 Level 3 Est. Patient 12:42:49 CDT Tu Landeros MD [facility] CPT-43871 Level 3 Est. Patient 11:52:06 CDT Tu Landeros MD [facility] CPT-68613 Level 3 Est. Patient 13:58:11 CDT Tu Landeros MD [facility] CPT-73424 Level 3 Est. Patient 17:50:07 CDT Fab Morales DO [facility] CPT-61871 Level 3 Est. Patient 12:06:29 CDT Elvira Cervantes MD [facility] CPT-68609 Level 3 Est. Patient 15:50:32 CDT Tu Landeros MD [facility] CPT-26707 Level 4 Est. Patient 16:08:29 CDT Tu Landeros MD [facility] CPT-15336 Level 3 Est. Patient 16:04:19 CDT Tu Landeros MD [facility] CPT-53671 Level 3 Est. Patient 11:22:30 PLACEMENT SPECIALIST Tu Landeros MD [facility] CPT-33520 Level 4 Est. Patient 16:24:02 PLACEMENT SPECIALIST Tu Landeros MD [facility] CPT-62377 Level 3 Est. Patient 17:21:23 PLACEMENT SPECIALIST Tu Landeros MD [facility] Procedures Code Procedure Name Date Entry Date Standard Description CPT-21018 Shoulder, right, comp min 2V - XRAY USE ONLY 13:50:22 CDT CPT-G0009 Administration of Pneumococcal Vaccine 15:08:26 CDT CPT-33834 Prevnar 13 Intramuscular Suspension 15:08:26 CDT 10/08 CPT-G0439 Subsequent Annual Wellness Exam 14:29:22 CDT CPT-95525 Venipuncture Draw Fee 13:15:35 CDT CPT-70168 Magnesium - LAB USE ONLY 11:14:20 PLACEMENT SPECIALIST CPT-94883 Lipid - LAB USE ONLY 11:14:20 PLACEMENT SPECIALIST CPT-49639 HGBA1C - LAB USE ONLY 11:14:20 PLACEMENT SPECIALIST CPT-33231 CMP - LAB USE ONLY 11:14:19 PLACEMENT SPECIALIST CPT-62967 CBC - LAB USE ONLY 11:14:19 PLACEMENT SPECIALIST CPT-48308 Venipuncture Draw Fee 11:14:18 PLACEMENT SPECIALIST CPT-43214 First Vx - Ix admin for Medicare patients 16:46:52 CDT CPT-76664 Fluzone Preservative Free Intramuscular Suspension 16:46 :51 CDT CPT-26757 CBC - LAB USE ONLY 17:14:46 CDT CPT-70047 HGBA1C - LAB USE ONLY 17:14:46 CDT CPT-53325 Venipuncture Draw Fee 17:14:46 CDT CPT-G0438 Initial Annual Wellness Exam 14:13:04 CDT CPT-29441 Breathing Tx 10:06:54 PLACEMENT SPECIALIST CPT-02003 Postop F/U Visit 10:02:45 CDT CPT-LR Lesion Removal 09:02:56 CDT CPT-JTINJ Asp/Joint Injection 15:51:27 PLACEMENT SPECIALIST CPT-OV Office Visit 15:52:02 PLACEMENT SPECIALIST CPT-OV Office Visit 15:45:11 CDT CPT-000 Give Zostavax 14:09:06 CDT CPT-38232 Administration single or combination vaccine inc oral 15 :19:04 CDT CPT-62527 Zoster Vaccine (Zostavax) 15:19:04 CDT CPT-76231 Administration single or combination vaccine inc oral 20 :51:03 CDT CPT-87286 Influenza split virus > age 3 20:51:03 CDT CPT-17720 No Charge Offi Visit 14:52:03 CDT CPT-OV Office Visit 14:57:43 CDT CPT-OV Office Visit 15:22:32 CDT CPT-74443 Administration single or combination vaccine inc oral 11 :33:15 CDT CPT-69366 Influenza split virus > age 3 11:33:15 CDT
--- OUTSIDE RECORDS SUMMARY | 2018-04-25 15:37 | XMS REPORT | Clinical Summary ---
Author Author Admin, SACHI Organization [employer] Address Unknown Phone Unavailable Allergies, Adverse [...] Generic Name NDC Status Provider Patient Instruction ASPIRIN EC 81 MG ORAL TBEC 1 po qd ASPIRIN 32989033023 Active Tu Landeros MD Active GLUCOSAMINE 500 MG TABS 2 po qd GLUCOSAMINE Active Tu Landeros MD Active SIMVASTATIN 40 MG TABS 0.5 po qHS SIMVASTATIN 12641997280 Active Tu Landeros MD Active FISH OIL 1000 MG CAPS 1 po qd OMEGA-3 FATTY ACIDS 13699081470 Active Tu Landeros MD Active METFORMIN HCL 1000 MG TABS 1 po BID METFORMIN HCL 97867276501 Active Tu Landeros MD Active KLOR-CON 10 10 MEQ CR-TABS 2 po qd POTASSIUM CHLORIDE 10324241354 Active Tu Landeros MD Active FUROSEMIDE 40 MG TAB 1 po qd FUROSEMIDE 34495065164 Active Tu Landeros MD Active REQUIP 2 MG ORAL TABS 1 po qHS PRN Restless legs ROPINIROLE HCL 34658772005 Active Tu Landeros MD Active VENLAFAXINE HCL 37.5 MG TABS 1 po BID VENLAFAXINE HCL 67329894298 Active Tu Landeros MD Active GABAPENTIN 100 MG CAPS 1 po BID GABAPENTIN 51706324686 Active José Luis Becerra MD Active REQUIP 2 MG TABS Take one tablet at bedtime prn ROPINIROLE HCL 25108164300 No Longer Active Tu Landeros MD Active VENTOLIN HFA 108 (90 BASE) MCG/ACT AERS 1-2 puffs every 4 hours if needed for cough/congestion ALBUTEROL SULFATE 18116158299 No Longer Active Ambika Aden APRN Active ZITHROMAX 250 MG TAB 2 po today, then 1 po q days 2-5 AZITHROMYCIN 91943037539 No Longer Active Miranda Suresh APRN Active FLONASE 50 MCG/ACT SUSP 1 spray each nostril twice daily until bottle empty FLUTICASONE PROPIONATE 16836194962 No Longer Active Tu Landeros MD Active COLACE 100 MG CAP 1 po BID PRN Constipation DOCUSATE SODIUM 18490225054 Active Tu Landeros MD Active TRUERESULT BLOOD GLUCOSE W/DEVICE KIT test blood sugar twice daily dx 250.00 BLOOD GLUCOSE MONITORING SUPPL 11012456490 No Longer Active Tu Landeros MD Active TRUEDRAW LANCING DEVICE MISC Test twice a day dx 250.0 LANCET DEVICES 30222617077 No Longer Active Tu Landeros MD Active PREDNISONE 20 MG TAB 2 tablets once daily for 2 days, then 1 tablet once daily for 2 days PREDNISONE 27735993952 No Longer Active Tu Landeros MD Active DICLOFENAC SODIUM 50 MG TBEC 1 tablet by mouth three times a day as needed DICLOFENAC SODIUM 19469321860 No Longer Active Fab Morales DO Active TRUEDRAW LANCING DEVICE MISC test blood sugar twice daily dx: 250.00 LANCET DEVICES 98990910195 Active Tu Landeros MD Active TRUETEST TEST INVITR STRP test blood sugar twice daily. DX 250.0 GLUCOSE BLOOD 81898148063 Active Tu Landeros MD Active EMBRACE BLOOD GLUCOSE TEST STRP test blood sugar twice daily DX 250.0 2014 GLUCOSE BLOOD 83580506201 No Longer Active Tu Landeros MD Active TRUETEST TEST STRP test blood sugar three times daily dx: 250.00 GLUCOSE BLOOD 63761395591 No Longer Active Suze VOGEL Active TRUERESULT BLOOD GLUCOSE W/DEVICE KIT use to test blood sugar tid dx: 250.00 BLOOD GLUCOSE MONITORING SUPPL 90830844531 No Longer Active Suze Nicole RMA Active ALIGN 4 MG CAPS 1 tid PROBIOTIC PRODUCT 77185227225 No Longer Active Shaun Sy MD Active CIPRO 500 MG TABS 1 bid x 14 days start 09-28-13 CIPROFLOXACIN HCL 22301567334 No Longer Active Shaun Sy MD Active TRAMADOL HCL 50 MG TABS 1-2 tablets every 6 hours as needed for pain TRAMADOL HCL 40841690833 Active Tu Landeros MD Active HYDROCODONE-ACETAMINOPHEN 5-325 MG TABS 1 tab by mouth every 6 hours as needed for pain HYDROCODONE-ACETAMINOPHEN 23440274174 No Longer Active Tu Landeros MD Active OMEPRAZOLE 20 MG CPDR 1 po q a.m. OMEPRAZOLE 98564031021 Active Tu Landeros MD Active GABAPENTIN 100 MG CAPS 1 po bid GABAPENTIN 09845400995 No Longer Active Tu Landeros MD Active B-12 100 MCG TABS Take one by mouth daily CYANOCOBALAMIN 01589702208 No Longer Active Tu Landeros MD Active BACTRIM DS 800-160 MG TABS 1 bid x 14 day start 09-28-13 SULFAMETHOXAZOLE-TRIMETHOPRIM 45190008151 No Longer Active Tu Landeros MD Active CARVEDILOL 12.5 MG TABS 1 po BID CARVEDILOL 11030442529 Active Tu Landeros MD Active SUPER B COMPLEX/VITAMIN C TABS 1 qd B COMPLEX-C 09956222460 Active NURYS PerezMahendra Active TRILIPIX 135 MG CPDR 1 q hs CHOLINE FENOFIBRATE 96963100560 Active Tu Landeros MD Active FENOFIBRATE 145 MG TABS 1 po qd FENOFIBRATE 79167539808 No Longer Active Gustavo NormaNURYSMahendra Active OMEPRAZOLE 20 MG TBEC 1 PO 30 MIN BEFORE 1ST MEAL OMEPRAZOLE 23358947917 No Longer Active Gustavo BermeouNURYSMahendra Active SIMVASTATIN 40 MG TABS Take one by mouth daily SIMVASTATIN 68814569270 No Longer Active Gustavo ForsythNURYSMahendra Active VENLAFAXINE HCL 75 MG TABS 1 po BID VENLAFAXINE HCL 06649401699 No Longer Active Attapulgus NURYS GreenMahendra Active CIPRO 500 MG TAB 1 tablet by mouth twice daily CIPROFLOXACIN HCL 95634331198 No Longer Active Tu Landeros MD Active VENLAFAXINE HCL 37.5 MG TABS 1 po BID VENLAFAXINE HCL 54760359139 No Longer Active Suzebianca Nicole RMA Active LAMISIL 250 MG TAB 1 po qd TERBINAFINE HCL 09430999204 No Longer Active Tu Landeros MD Active LORTAB 5 5-500 MG TABS 1/2 to 1 tablet by mouth every 4 hours as needed for pain HYDROCODONE-ACETAMINOPHEN 69257572682 No Longer Active Tu Landeros MD Active ENALAPRIL MALEATE 20 MG TABS 1.5 po qd ENALAPRIL MALEATE 75399154048 Active Tu Landeros MD Active HYDROCODONE-ACETAMINOPHEN 5-500 MG TABS take one po Q 4-6 hours prn HYDROCODONE-ACETAMINOPHEN 34905996357 No Longer Active Tu Landerso MD Active BACTRIM DS 800-160 MG TABS 1 po BID x 7 days SULFAMETHOXAZOLE-TRIMETHOPRIM 73626151723 No Longer Active Tu Landeros MD Active VENLAFAXINE HCL 75 MG TABS 1 po BID VENLAFAXINE HCL 61613502908 No Longer Active Elvira Cervantes MD PhD Active TRAMADOL HCL 50 MG TABS 1 tablets every 6 hours as needed for pain TRAMADOL HCL 45927628666 No Longer Active Tu Landeros MD Active ACCU-CHEK FASTCLIX LANCETS MISC Use to check bloodsugar three times daily as needed LANCETS 44093371693 No Longer Active Tu Landeros MD Active ACCU-CHEK KEYONA PLUS STRP Use for testing bloodsugars three times daily as needed GLUCOSE BLOOD 28264391307 No Longer Active Tu Landeros MD Active ACCU-CHEK KEYONA PLUS W/DEVICE KIT Use for testing bloodsugars three times daily as needed BLOOD GLUCOSE MONITORING SUPPL 29674749134 No Longer Active Tu Landeros MD Active SPIRONOLACTONE 25 MG TAB 0.5 tablet by mouth daily SPIRONOLACTONE 22096975521 No Longer Active Tu Landeros MD Active ALPRAZOLAM 0.5 MG TABS 1 tab every 6hrs as needed ALPRAZOLAM 66908690667 No Longer Active Tu Landeros MD Active AUGMENTIN 875-125 MG TAB 1 tab by mouth twice daily with food AMOXICILLIN-POT CLAVULANATE 94746624002 No Longer Active Tu Landeros MD Active PREDNISONE 20 MG TAB 2 tabs daily for 3 days, 1 tab daily for 3 days, 1/2 tab daily for 2 days PREDNISONE 71506740842 No Longer Active Tu Landeros MD Active XANAX 0.5 MG TABS 1 tablet every 6 hrs prn ALPRAZOLAM 84627046081 No Longer Active Tu Landeros MD Active PREDNISONE 20 MG TAB 2 tabs daily for 3 days, 1 tab daily for 3 days, 1/2 tab daily for 2 days PREDNISONE 66021078578 No Longer Active Tu Landeros MD Active TRIAMCINOLONE ACETONIDE 0.1 % OINT Apply to affected areas TID for up to 2 weeks TRIAMCINOLONE ACETONIDE 08657316371 No Longer Active Tu Landeros MD Active LORTAB 5 5-500 MG TABS 1/2 to 1 tablet by mouth every 4 hours as needed for pain HYDROCODONE-ACETAMINOPHEN 43408498706 No Longer Active Tu Landeros MD Active MULTIVITAMINS TABS Take one by mouth daily MULTIPLE VITAMIN 30240129885 No Longer Active Tu Landeros MD Active MELATONIN 5 MG TABS Take one by mouth daily MELATONIN 58775343636 No Longer Active Tu Landeros MD Active SOMA 350 MG TAB 1 po q 6 hours prn spasm CARISOPRODOL 60273408364 No Longer Active Tu Landeros MD Active MECLIZINE HCL 25 MG CHEW TAB 1 four times a day as needed for dizziness 08/05 MECLIZINE HCL 34203676544 No Longer Active Fab Morales DO Active ANGEL BREEZE 2 TEST DISK test tid prn GLUCOSE BLOOD 81824803751 No Longer Active Negra Scott RN Active REGLAN 10 MG TAB 1 po TID PRN Nausea METOCLOPRAMIDE HCL 79374266856 No Longer Active Tu Landeros MD Active METFORMIN HCL 500 MG TABS 1 PO BID METFORMIN HCL 89834391997 No Longer Active Tu Landeros MD Active AMBIEN 10 MG TAB 1 tab by mouth at bedtime as needed for sleep ZOLPIDEM TARTRATE 69221490580 No Longer Active Tu Landeros MD Active FLUOXETINE HCL 40 MG CAPS 1 po q day FLUOXETINE HCL 48826822863 No Longer Active Mayra Terry Active TRILIPIX 135 MG CPDR 1 po qd CHOLINE FENOFIBRATE 90380056818 No Longer Active Tu Landeros MD Active AMBIEN 10 MG TAB 1 tab by mouth at bedtime as needed for sleep AMBIEN 10 MG TAB 653825 ZOLPIDEM TARTRATE Inactive METFORMIN HCL 500 MG TABS 1 PO BID METFORMIN HCL 500 MG TABS 658321 METFORMIN HCL Inactive REGLAN 10 MG TAB 1 po TID PRN Nausea REGLAN 10 MG TAB 820915 METOCLOPRAMIDE HCL Inactive MECLIZINE HCL 25 MG CHEW TAB 1 four times a day as needed for dizziness 08/05 MECLIZINE HCL 25 MG CHEW TAB 822399 MECLIZINE HCL Inactive SOMA 350 MG TAB 1 po q 6 hours prn spasm SOMA 350 MG TAB 491113 CARISOPRODOL Inactive MELATONIN 5 MG TABS Take one by mouth daily MELATONIN 5 MG TABS 422414 MELATONIN Inactive MULTIVITAMINS TABS Take one by mouth daily MULTIVITAMINS TABS MULTIPLE VITAMIN Inactive LORTAB 5 5-500 MG TABS 1/2 to 1 tablet by mouth every 4 hours as needed for pain LORTAB 5 5-500 MG TABS HYDROCODONE- ACETAMINOPHEN Inactive XANAX 0.5 MG TABS 1 tablet every 6 hrs prn XANAX 0.5 MG TABS 262946 ALPRAZOLAM Inactive AUGMENTIN 875-125 MG TAB 1 tab by mouth twice daily with food AUGMENTIN 875-125 MG TAB 031181 AMOXICILLIN-POT CLAVULANATE Inactive ALPRAZOLAM 0.5 MG TABS 1 tab every 6hrs as needed ALPRAZOLAM 0.5 MG TABS 431693 ALPRAZOLAM Inactive SPIRONOLACTONE 25 MG TAB 0.5 tablet by mouth daily SPIRONOLACTONE 25 MG TAB 073955 SPIRONOLACTONE Inactive ACCU-CHEK KEYONA PLUS W/DEVICE KIT Use for testing bloodsugars three times daily as needed ACCU-CHEK KEYONA PLUS W/DEVICE KIT BLOOD GLUCOSE MONITORING SUPPL Inactive ACCU-CHEK KEYONA PLUS STRP Use for testing bloodsugars three times daily as needed ACCU-CHEK KEYONA PLUS STRP GLUCOSE BLOOD Inactive ACCU-CHEK FASTCLIX LANCETS MISC Use to check bloodsugar three times daily as needed ACCU-CHEK FASTCLIX LANCETS MISC 20962823260 LANCETS Inactive TRAMADOL HCL 50 MG TABS 1 tablets every 6 hours as needed for pain TRAMADOL HCL 50 MG TABS 144047 TRAMADOL HCL Inactive VENLAFAXINE HCL 75 MG TABS 1 po BID VENLAFAXINE HCL 75 MG TABS 866429 VENLAFAXINE HCL Inactive HYDROCODONE-ACETAMINOPHEN 5-500 MG TABS take one po Q 4-6 hours prn HYDROCODONE-ACETAMINOPHEN 5-500 MG TABS HYDROCODONE- ACETAMINOPHEN Inactive LORTAB 5 5-500 MG TABS 1/2 to 1 tablet by mouth every 4 hours as needed for pain LORTAB 5 5-500 MG TABS HYDROCODONE- ACETAMINOPHEN Inactive LAMISIL 250 MG TAB 1 po qd LAMISIL 250 MG TAB 272092 TERBINAFINE HCL Inactive VENLAFAXINE HCL 37.5 MG TABS 1 po BID VENLAFAXINE HCL 37.5 MG TABS 257516 VENLAFAXINE HCL Inactive CIPRO 500 MG TAB 1 tablet by mouth twice daily CIPRO 500 MG TAB 588764 CIPROFLOXACIN HCL Inactive VENLAFAXINE HCL 75 MG TABS 1 po BID VENLAFAXINE HCL 75 MG TABS 521034 VENLAFAXINE HCL Inactive SIMVASTATIN 40 MG TABS Take one by mouth daily SIMVASTATIN 40 MG TABS 886193 SIMVASTATIN Inactive OMEPRAZOLE 20 MG TBEC 1 PO 30 MIN BEFORE 1ST MEAL OMEPRAZOLE 20 MG TBEC 056172 OMEPRAZOLE Inactive FENOFIBRATE 145 MG TABS 1 po qd FENOFIBRATE 145 MG TABS 591678 FENOFIBRATE Inactive BACTRIM DS 800-160 MG TABS 1 bid x 14 day start 09-28-13 BACTRIM DS 800-160 MG TABS 215121 SULFAMETHOXAZOLE-TRIMETHOPRIM Inactive B-12 100 MCG TABS Take one by mouth daily B-12 100 MCG TABS CYANOCOBALAMIN Inactive GABAPENTIN 100 MG CAPS 1 po bid GABAPENTIN 100 MG CAPS 390259 GABAPENTIN Inactive HYDROCODONE-ACETAMINOPHEN 5-325 MG TABS 1 tab by mouth every 6 hours as needed for pain HYDROCODONE-ACETAMINOPHEN 5-325 MG TABS 622040 HYDROCODONE-ACETAMINOPHEN Inactive CIPRO 500 MG TABS 1 bid x 14 days start 09-28-13 CIPRO 500 MG TABS 784593 CIPROFLOXACIN HCL Inactive ALIGN 4 MG CAPS [...] as needed DICLOFENAC SODIUM 50 MG TBEC 287156 DICLOFENAC SODIUM Inactive PREDNISONE 20 MG TAB 2 tablets once daily for 2 days, then 1 tablet once daily for 2 days PREDNISONE 20 MG TAB 843251 PREDNISONE Inactive TRUEDRAW LANCING DEVICE MISC Test [...] at bedtime prn REQUIP 2 MG TABS 992223 ROPINIROLE HCL Inactive TRIAMCINOLONE ACETONIDE 0.1 % OINT Apply to affected areas TID for up to 2 weeks TRIAMCINOLONE ACETONIDE 0.1 % OINT 0323136 TRIAMCINOLONE ACETONIDE Inactive PREDNISONE 20 MG TAB 2 tabs daily for 3 days, 1 tab daily for 3 days, 1/2 tab daily for 2 days PREDNISONE 20 MG TAB 895428 PREDNISONE Inactive PREDNISONE 20 MG TAB 2 tabs daily for 3 days, 1 tab daily for 3 days, 1/2 tab daily for 2 days PREDNISONE 20 MG TAB 465207 PREDNISONE Inactive BACTRIM DS 800-160 MG TABS 1 po BID x 7 days BACTRIM DS 800-160 MG TABS 044330 SULFAMETHOXAZOLE-TRIMETHOPRIM Inactive ZITHROMAX 250 MG TAB 2 po today, then 1 po q days 2-5 ZITHROMAX 250 MG TAB 7073150 AZITHROMYCIN Inactive Advance Directives Directive Description Start Date DISCUSSED WITH PATIENT -- NO DECISION MADE Immunizations Vaccine Administration Date Value Standard Description Seasonal influenza vaccine, injectable, containing preservative, for > 3 years old (Afluria, FluLaval, Fluzone, Fluvirin, Fluarix, Agriflu(>=18 yo)) Fluzone (>3 yrs.) [[id number]] Influenza, seasonal, injectable influenza immunization (Flu Vax) has been administered 02/22/2012 influenza virus vaccine, unspecified formulation Seasonal influenza vaccine, injectable, containing preservative, for > 3 years old (Afluria, FluLaval, Fluzone, Fluvirin, Fluarix, Agriflu(>=18 yo)) Fluzone (>3 yrs.) [[id number]] Influenza, seasonal, injectable Vital Signs Date Name [...] Magnesium - Chemistry sodium, serum 143 mmol/L 218-821 8486/01/10 carbon dioxide, venous blood 28.0 mmol/L 21.0-32.0 potassium, serum 4.5 mmol/L 3.5-5.2 chloride, serum 104 mmol/L 98-107 blood glucose 158 mg/dL 65-110 urea nitrogen, blood 23 mg/dL 7-18 creatinine, serum 1.06 mg/dL 0.55-1.30 alanine aminotransferase (SGPT), serum 42 U/L 12-78 aspartate aminotransferase (SGOT), serum 32 U/L 15-37 calcium, serum 9.3 mg/dL 8.5-10.1 bilirubin, serum, total 0.20 mg/dL 0.00-1.00 cholesterol, serum 177 mg/dL 199-403 3364/01/10 triglyceride, serum, fasting 320 mg/dL 30-200 HDL cholesterol, serum 46 mg/dL 32-96 LDL cholesterol, serum 67 mg/dL 0-130 Lab Report: HGBA1C - Chemistry hemoglobin A1C, blood, as % of total hemoglobin 7.1 % 4.3-6.0 hemoglobin A1C, blood, as % of total hemoglobin 7.4 % 4.3-6.0 sodium, serum 140 mmol/L 926-266 2023/09/07 potassium, serum 4.3 mmol/L 3.5-5.2 chloride, serum [...] <30 Encounters Code Encounter Date Provider Facility CPT-07082 Level 4 Est. Patient 14:40:19 CDT Tu Landeros MD [facility] CPT-03354 Level 4 Est. Patient 14:06:04 STUDENT Tu Landeros MD [facility] CPT-62298 Level 3 Est. Patient 14:05:18 STUDENT Tu Landeros MD [facility] CPT-93865 Level 3 Est. Patient 10:06:54 STUDENT Miranda Suresh APRN [facility] CPT-04793 Level 4 Est. Patient 13:50:18 STUDENT Tu Landeros MD [facility] CPT-00929 Level 3 Est. Patient 10:30:04 CDT Tu Landeros MD [facility] CPT-97475 Level 4 Est. Patient 11:03:38 CDT Tu Landeros MD [facility] CPT-83598 Level 3 Est. Patient 10:20:44 CDT Fab Morales DO [facility] CPT-19233 Level 4 Est. Patient 14:38:57 CDT Tu Landeros MD [facility] CPT-33998 Level 4 Est. Patient 14:27:39 STUDENT Tu Landeros MD [facility] CPT-98424 Level 4 Est. Patient 09:45:25 CDT Tu Landeros MD [facility] CPT-44893 Level 4 Est. Patient 09:05:20 STUDENT Tu Landeros MD [facility] CPT-74131 Level 4 Est. Patient 14:09:06 CDT Tu Landeros MD [facility] CPT-27374 Level 3 Est. Patient 13:36:54 CDT Tu Landeros MD [facility] CPT-57507 Level 3 Est. Patient 08:59:14 CDT Tu Landeros MD [facility] CPT-83758 Level 3 Est. Patient 13:48:35 CDT Fab Morales DO [facility] CPT-03297 Level 4 Est. Patient 10:05:48 CDT Tu Landeros MD [facility] CPT-24331 Level 3 Est. Patient 13:38:42 CDT Marek BANKS [facility] CPT-50645 Level 5 Est. Patient 08:08:39 CDT Jerrica FRANCIS [facility] CPT-77361 Level 4 Est. Patient 14:23:38 CDT Tu Landeros MD [facility] CPT-69491 Level 3 Est. Patient 11:44:04 CDT Tu Landeros MD [facility] CPT-34937 Level 3 Est. Patient 11:03:20 STUDENT Tu Landeros MD [facility] CPT-52116 Level 3 Est. Patient 11:03:14 STUDENT Tu Landeros MD [facility] CPT-86797 Level 3 Est. Patient 12:42:49 CDT Tu Landeros MD [facility] CPT-88721 Level 3 Est. Patient 11:52:06 CDT Tu Landeros MD [facility] CPT-98069 Level 3 Est. Patient 13:58:11 CDT Tu Landeros MD [facility] CPT-92695 Level 3 Est. Patient 17:50:07 CDT Fab Morales DO [facility] CPT-97110 Level 3 Est. Patient 12:06:29 CDT Elvira Cervantes MD, PhD [facility] CPT-40961 Level 3 Est. Patient 15:50:32 CDT Tu Landeros MD [facility] CPT-70008 Level 4 Est. Patient 16:08:29 CDT Tu Landeros MD [facility] CPT-65761 Level 3 Est. Patient 16:04:19 CDT Tu Landeros MD [facility] CPT-43084 Level 3 Est. Patient 11:22:30 STUDENT Tu Landeros MD [facility] CPT-16107 Level 4 Est. Patient 16:24:02 STUDENT Tu Landeros MD [facility] CPT-99335 Level 3 Est. Patient 17:21:23 STUDENT Tu Landeros MD [facility] Procedures Code Procedure Name Date Entry Date Standard Description CPT-49372 Magnesium - LAB USE ONLY 11:14:20 STUDENT CPT-46201 Lipid - LAB USE ONLY 11:14:20 STUDENT CPT-48083 HGBA1C - LAB USE ONLY 11:14:20 STUDENT CPT-82700 CMP - LAB USE ONLY 11:14:19 STUDENT CPT-35061 CBC - LAB USE ONLY 11:14:19 STUDENT CPT-39723 Venipuncture Draw Fee 11:14:18 STUDENT CPT-91070 First Vx - Ix admin for Medicare patients 16:46:52 CDT CPT-89650 Fluzone Preservative Free Intramuscular Suspension 16:46 :51 CDT CPT-34989 CBC - LAB USE ONLY 17:14:46 CDT CPT-44759 HGBA1C - LAB USE ONLY 17:14:46 CDT CPT-32072 Venipuncture Draw Fee 17:14:46 CDT CPT-G0438 Initial Annual Wellness Exam 14:13:04 CDT CPT-89971 Breathing Tx 10:06:54 STUDENT CPT-45770 Postop F/U Visit 10:02:45 CDT CPT-LR Lesion Removal 09:02:56 CDT CPT-JTINJ Asp/Joint Injection 15:51:27 STUDENT CPT-OV Office Visit 15:52:02 STUDENT CPT-OV Office Visit 15:45:11 CDT CPT-000 Give Zostavax 14:09:06 CDT CPT-35970 Administration single or combination vaccine inc oral 15 :19:04 CDT CPT-53411 Zoster Vaccine (Zostavax) 15:19:04 CDT CPT-08855 Administration single or combination vaccine inc oral 20 :51:03 CDT CPT-98448 Influenza split virus > age 3 20:51:03 CDT CPT-87269 No Charge Offi Visit 14:52:03 CDT CPT-OV Office Visit 14:57:43 CDT CPT-OV Office Visit 15:22:32 CDT CPT-41230 Administration single or combination vaccine inc oral 11 :33:15 CDT CPT-73198 Influenza split virus > age 3 11:33:15 CDT
--- OUTSIDE RECORDS SUMMARY | 2018-04-25 15:38 | XMS REPORT | Clinical Summary ---
Author Author Admin, SACHI Organization [employer] Address Unknown Phone Unavailable Allergies, Adverse Reactions, [...] po TID PRN Muscle Spasm CYCLOBENZAPRINE HCL 66827291118 Active Tu Landeros MD Active DICLOFENAC SODIUM 50 MG ORAL TBEC 1 po BID PRN Pain DICLOFENAC SODIUM 73028294882 Delores Landeros MD Active INVOKANA 100 MG ORAL TABS 1 po qd CANAGLIFLOZIN 09154945181 Active Tu Landeros MD Active GLIPIZIDE 5 MG ORAL TABS 1 po qd GLIPIZIDE 40278948822 No Longer Active Tu Landeros MD Active VENLAFAXINE HCL 75 MG ORAL TABS 1 po BID VENLAFAXINE HCL 30814846356 Active Tu Landeros MD Active GLIMEPIRIDE 1 MG ORAL TABS 1 po qd GLIMEPIRIDE 80369829589 No Longer Active Tu Landeros MD Active TRUE METRIX BLOOD GLUCOSE TEST INVITR STRP Test blood sugar BID Dx: E11.9 GLUCOSE BLOOD 74616986192 Active Tu Landeros MD Active TRUE METRIX AIR GLUCOSE METER W/DEVICE KIT Test blood glucose BID Dx: E11.9 BLOOD GLUCOSE MONITORING SUPPL 07577231556 Active Tu Landeros MD Active TRUETEST TEST INVITR STRP test blood sugar twice daily. DX 250.0 GLUCOSE BLOOD 72896276309 No Longer Active Mirna Stanley LPN Active TRUEDRAW LANCING DEVICE MISC test blood sugar twice daily dx: 250.00 LANCET DEVICES 15213808146 No Longer Active Mirna Stanley LPN Active ENALAPRIL MALEATE 20 MG TABS 2 po qd ENALAPRIL MALEATE 94403170083 Active Tu Landeros MD Active SUPER B COMPLEX/VITAMIN C TABS 1 qd B COMPLEX-C 21682796990 No Longer Active Tu Landeros MD Active ASPIRIN EC 81 MG ORAL TBEC 1 po qd ASPIRIN 24955475655 Active Tu Landeros MD Active GLUCOSAMINE 500 MG TABS 2 po qd GLUCOSAMINE Active Tu Landeros MD Active SIMVASTATIN 40 MG TABS 0.5 po qHS SIMVASTATIN 41125706012 Active Tu Landeros MD Active FISH OIL 1000 MG CAPS 1 po qd OMEGA-3 FATTY ACIDS 98571283661 Active Tu Landeros MD Active METFORMIN HCL 1000 MG TABS 1 po BID METFORMIN HCL 18584033869 Active Tu Landeros MD Active KLOR-CON 10 10 MEQ CR-TABS 2 po qd POTASSIUM CHLORIDE 48914766303 Active Tu Landeros MD Active FUROSEMIDE 40 MG TAB 1 po qd FUROSEMIDE 99521836532 Active Tu Landeros MD Active REQUIP 2 MG ORAL TABS 1 po qHS PRN Restless legs ROPINIROLE HCL 04842095303 Active Tu Landeros MD Active GABAPENTIN 100 MG CAPS 1 po BID GABAPENTIN 50704532903 Active Tu Landeros MD Active REQUIP 2 MG TABS Take one tablet at bedtime prn ROPINIROLE HCL 14766471490 No Longer Active Tu Landeros MD Active VENTOLIN HFA 108 (90 BASE) MCG/ACT AERS 1-2 puffs every 4 hours if needed for cough/congestion ALBUTEROL SULFATE 41348714905 No Longer Active Ambika Aden APRN Active ZITHROMAX 250 MG TAB 2 po today, then 1 po q days 2-5 AZITHROMYCIN 45122870236 No Longer Active Miranda Suresh APRN Active FLONASE 50 MCG/ACT SUSP 1 spray each nostril twice daily until bottle empty FLUTICASONE PROPIONATE 21119116987 No Longer Active Tu Landeros MD Active COLACE 100 MG CAP 1 po BID PRN Constipation DOCUSATE SODIUM 06013971171 Active Tu Landeros MD Active TRUERESULT BLOOD GLUCOSE W/DEVICE KIT test blood sugar twice daily dx 250.00 BLOOD GLUCOSE MONITORING SUPPL 44775751779 No Longer Active Tu Landeros MD Active TRUEDRAW LANCING DEVICE MISC Test twice a day dx 250.0 LANCET DEVICES 56597396945 No Longer Active Tu Landeros MD Active PREDNISONE 20 MG TAB 2 tablets once daily for 2 days, then 1 tablet once daily for 2 days PREDNISONE 77609182696 No Longer Active Tu Landeros MD Active DICLOFENAC SODIUM 50 MG TBEC 1 tablet by mouth three times a day as needed DICLOFENAC SODIUM 88896543949 No Longer Active Fab W Andrew DO Active EMBRACE BLOOD GLUCOSE TEST STRP test blood sugar twice daily DX 250.0 2014 GLUCOSE BLOOD 97476097454 No Longer Active Tu Landeros MD Active TRUETEST TEST STRP test blood sugar three times daily dx: 250.00 GLUCOSE BLOOD 55278919683 No Longer Active Suze VOGEL Active TRUERESULT BLOOD GLUCOSE W/DEVICE KIT use to test blood sugar tid dx: 250.00 BLOOD GLUCOSE MONITORING SUPPL 89125036456 No Longer Active Suze Hardenehart RMA Active ALIGN 4 MG CAPS 1 tid PROBIOTIC PRODUCT 64148204683 No Longer Active Shaun Sy MD Active CIPRO 500 MG TABS 1 bid x 14 days start 09-28-13 CIPROFLOXACIN HCL 78989325705 No Longer Active Shaun Sy MD Active TRAMADOL HCL 50 MG TABS 1-2 tablets every 6 hours as needed for pain TRAMADOL HCL 69619831448 Active Tu Landeros MD Active HYDROCODONE-ACETAMINOPHEN 5-325 MG TABS 1 tab by mouth every 6 hours as needed for pain HYDROCODONE-ACETAMINOPHEN 64638187374 No Longer Active Tu Landeros MD Active OMEPRAZOLE 20 MG CPDR 1 po q a.m. OMEPRAZOLE 78312171206 Active Lesli Kellogg APRN Active GABAPENTIN 100 MG CAPS 1 po bid GABAPENTIN 98638511873 No Longer Active Tu Landeros MD Active B-12 100 MCG TABS Take one by mouth daily CYANOCOBALAMIN 45490642842 No Longer Active Tu Landeros MD Active BACTRIM DS 800-160 MG TABS 1 bid x 14 day start 09-28-13 SULFAMETHOXAZOLE-TRIMETHOPRIM 28118364143 No Longer Active Tu Landeros MD Active CARVEDILOL 12.5 MG TABS 1 po BID CARVEDILOL 60378023275 Active Tu Landeros MD Active TRILIPIX 135 MG CPDR 1 q hs CHOLINE FENOFIBRATE 64297133414 Active Tu Landeros MD Active FENOFIBRATE 145 MG TABS 1 po qd FENOFIBRATE 81989391263 No Longer Active JASPREET Perez Active OMEPRAZOLE 20 MG TBEC 1 PO 30 MIN BEFORE 1ST MEAL OMEPRAZOLE 31116006056 No Longer Active JASPREET Perez Active SIMVASTATIN 40 MG TABS Take one by mouth daily SIMVASTATIN 87436030711 No Longer Active JASPREET Perez Active VENLAFAXINE HCL 75 MG TABS 1 po BID VENLAFAXINE HCL 29829874283 No Longer Active JASPREET Perez Active CIPRO 500 MG TAB 1 tablet by mouth twice daily CIPROFLOXACIN HCL 87648020474 No Longer Active Tu Landeros MD Active VENLAFAXINE HCL 37.5 MG TABS 1 po BID VENLAFAXINE HCL 77663029879 No Longer Active Suze Nicole [facility] Active LAMISIL 250 MG TAB 1 po qd TERBINAFINE HCL 70096468191 No Longer Active Tu Landeros MD Active LORTAB 5 5-500 MG TABS 1/2 to 1 tablet by mouth every 4 hours as needed for pain HYDROCODONE-ACETAMINOPHEN 09611655001 No Longer Active Tu Landeros MD Active HYDROCODONE-ACETAMINOPHEN 5-500 MG TABS take one po Q 4-6 hours prn HYDROCODONE-ACETAMINOPHEN 85278856098 No Longer Active Tu Landeros MD Active BACTRIM DS 800-160 MG TABS 1 po BID x 7 days SULFAMETHOXAZOLE-TRIMETHOPRIM 96295269512 No Longer Active Tu Landeros MD Active VENLAFAXINE HCL 75 MG TABS 1 po BID VENLAFAXINE HCL 40933976303 No Longer Active Elvira Cervantes MD PhD Active TRAMADOL HCL 50 MG TABS 1 tablets every 6 hours as needed for pain TRAMADOL HCL 30463491803 No Longer Active Tu Landeros MD Active ACCU-CHEK FASTCLIX LANCETS MISC Use to check bloodsugar three times daily as needed LANCETS 83594125685 No Longer Active Tu Landeros MD Active ACCU-CHEK KEYONA PLUS STRP Use for testing bloodsugars three times daily as needed GLUCOSE BLOOD 77217793245 No Longer Active Tu Landeros MD Active ACCU-CHEK KEYONA PLUS W/DEVICE KIT Use for testing bloodsugars three times daily as needed BLOOD GLUCOSE MONITORING SUPPL 36908615069 No Longer Active Tu Landeros MD Active SPIRONOLACTONE 25 MG TAB 0.5 tablet by mouth daily SPIRONOLACTONE 62223250002 No Longer Active Tu Landeros MD Active ALPRAZOLAM 0.5 MG TABS 1 tab every 6hrs as needed ALPRAZOLAM 88235339809 No Longer Active Tu Landeros MD Active AUGMENTIN 875-125 MG TAB 1 tab by mouth twice daily with food AMOXICILLIN-POT CLAVULANATE 82398598289 No Longer Active Tu Landeros MD Active PREDNISONE 20 MG TAB 2 tabs daily for 3 days, 1 tab daily for 3 days, 1/2 tab daily for 2 days PREDNISONE 07244580221 No Longer Active Tu Landeros MD Active XANAX 0.5 MG TABS 1 tablet every 6 hrs prn ALPRAZOLAM 10973705676 No Longer Active Tu Landeros MD Active PREDNISONE 20 MG TAB 2 tabs daily for 3 days, 1 tab daily for 3 days, 1/2 tab daily for 2 days PREDNISONE 86481384803 No Longer Active Tu Landeros MD Active TRIAMCINOLONE ACETONIDE 0.1 % OINT Apply to affected areas TID for up to 2 weeks TRIAMCINOLONE ACETONIDE 37484507722 No Longer Active Tu Landeros MD Active LORTAB 5 5-500 MG TABS 1/2 to 1 tablet by mouth every 4 hours as needed for pain HYDROCODONE-ACETAMINOPHEN 62618885560 No Longer Active Tu Landeros MD Active MULTIVITAMINS TABS Take one by mouth daily MULTIPLE VITAMIN 49595113161 No Longer Active Tu Landeros MD Active MELATONIN 5 MG TABS Take one by mouth daily MELATONIN 91249290874 No Longer Active Tu Landeros MD Active SOMA 350 MG TAB 1 po q 6 hours prn spasm CARISOPRODOL 38457889932 No Longer Active Tu Landeros MD Active MECLIZINE HCL 25 MG CHEW TAB 1 four times a day as needed for dizziness 08/05 MECLIZINE HCL 87242583341 No Longer Active Fab Morales DO Active ANGEL BREEZE 2 TEST DISK test tid prn GLUCOSE BLOOD 05989514312 No Longer Active Negra Scott RN Active REGLAN 10 MG TAB 1 po TID PRN Nausea METOCLOPRAMIDE HCL 89323040150 No Longer Active Tu Landeros MD Active METFORMIN HCL 500 MG TABS 1 PO BID METFORMIN HCL 52339842178 No Longer Active Tu Landeros MD Active AMBIEN 10 MG TAB 1 tab by mouth at bedtime as needed for sleep ZOLPIDEM TARTRATE 57988054940 No Longer Active Tu Landeros MD Active FLUOXETINE HCL 40 MG CAPS 1 po q day FLUOXETINE HCL 33558858327 No Longer Active Mayra [place] Active TRILIPIX 135 MG CPDR 1 po qd CHOLINE FENOFIBRATE 39316844397 No Longer Active Tu Landeros MD Active AMBIEN 10 MG TAB 1 tab by mouth at bedtime as needed for sleep AMBIEN 10 MG TAB 086357 ZOLPIDEM TARTRATE Inactive METFORMIN HCL 500 MG TABS 1 PO BID METFORMIN HCL 500 MG TABS 171585 METFORMIN HCL Inactive REGLAN 10 MG TAB 1 po TID PRN Nausea REGLAN 10 MG TAB 786096 METOCLOPRAMIDE HCL Inactive MECLIZINE HCL 25 MG CHEW TAB 1 four times a day as needed for dizziness 08/05 MECLIZINE HCL 25 MG CHEW TAB 423616 MECLIZINE HCL Inactive SOMA 350 MG TAB 1 po q 6 hours prn spasm SOMA 350 MG TAB 809518 CARISOPRODOL Inactive MELATONIN 5 MG TABS Take one by mouth daily MELATONIN 5 MG TABS 130323 MELATONIN Inactive MULTIVITAMINS TABS Take one by mouth daily MULTIVITAMINS TABS MULTIPLE VITAMIN Inactive LORTAB 5 5-500 MG TABS 1/2 to 1 tablet by mouth every 4 hours as needed for pain LORTAB 5 5-500 MG TABS HYDROCODONE- ACETAMINOPHEN Inactive XANAX 0.5 MG TABS 1 tablet every 6 hrs prn XANAX 0.5 MG TABS 894954 ALPRAZOLAM Inactive AUGMENTIN 875-125 MG TAB 1 tab by mouth twice daily with food AUGMENTIN 875-125 MG TAB 366479 AMOXICILLIN-POT CLAVULANATE Inactive ALPRAZOLAM 0.5 MG TABS 1 tab every 6hrs as needed ALPRAZOLAM 0.5 MG TABS 226270 ALPRAZOLAM Inactive SPIRONOLACTONE 25 MG TAB 0.5 tablet by mouth daily SPIRONOLACTONE 25 MG TAB 015886 SPIRONOLACTONE Inactive ACCU-CHEK KEYONA PLUS W/DEVICE KIT Use for testing bloodsugars three times daily as needed ACCU-CHEK KEYONA PLUS W/DEVICE KIT BLOOD GLUCOSE MONITORING SUPPL Inactive ACCU-CHEK KEYONA PLUS STRP Use for testing bloodsugars three times daily as needed ACCU-CHEK KEYONA PLUS STRP GLUCOSE BLOOD Inactive ACCU-CHEK FASTCLIX LANCETS MISC Use to check bloodsugar three times daily as needed ACCU-CHEK FASTCLIX LANCETS MISC 33274262128 [facility] Inactive TRAMADOL HCL 50 MG TABS 1 tablets every 6 hours as needed for pain TRAMADOL HCL 50 MG TABS 700942 TRAMADOL HCL Inactive VENLAFAXINE HCL 75 MG TABS 1 po BID VENLAFAXINE HCL 75 MG TABS 358964 VENLAFAXINE HCL Inactive HYDROCODONE-ACETAMINOPHEN 5-500 MG TABS take one po Q 4-6 hours prn HYDROCODONE-ACETAMINOPHEN 5-500 MG TABS HYDROCODONE- ACETAMINOPHEN Inactive LORTAB 5 5-500 MG TABS 1/2 to 1 tablet by mouth every 4 hours as needed for pain LORTAB 5 5-500 MG TABS HYDROCODONE- ACETAMINOPHEN Inactive LAMISIL 250 MG TAB 1 po qd LAMISIL 250 MG TAB 732392 TERBINAFINE HCL Inactive VENLAFAXINE HCL 37.5 MG TABS 1 po BID VENLAFAXINE HCL 37.5 MG TABS 264943 VENLAFAXINE HCL Inactive CIPRO 500 MG TAB 1 tablet by mouth twice daily CIPRO 500 MG TAB 086484 CIPROFLOXACIN HCL Inactive VENLAFAXINE HCL 75 MG TABS 1 po BID VENLAFAXINE HCL 75 MG TABS 685455 VENLAFAXINE HCL Inactive SIMVASTATIN 40 MG TABS Take one by mouth daily SIMVASTATIN 40 MG TABS 466149 SIMVASTATIN Inactive OMEPRAZOLE 20 MG TBEC 1 PO 30 MIN BEFORE 1ST MEAL OMEPRAZOLE 20 MG TBEC 601009 OMEPRAZOLE Inactive FENOFIBRATE 145 MG TABS 1 po qd FENOFIBRATE 145 MG TABS 369314 FENOFIBRATE Inactive BACTRIM DS 800-160 MG TABS 1 bid x 14 day start 09-28-13 BACTRIM DS 800-160 MG TABS 174003 SULFAMETHOXAZOLE-TRIMETHOPRIM Inactive B-12 100 MCG TABS Take one by mouth daily B-12 100 MCG TABS CYANOCOBALAMIN Inactive GABAPENTIN 100 MG CAPS 1 po bid GABAPENTIN 100 MG CAPS 019719 GABAPENTIN Inactive HYDROCODONE-ACETAMINOPHEN 5-325 MG TABS 1 tab by mouth every 6 hours as needed for pain HYDROCODONE-ACETAMINOPHEN 5-325 MG TABS 287063 HYDROCODONE-ACETAMINOPHEN Inactive CIPRO 500 MG TABS 1 bid x 14 days start 09-28-13 CIPRO 500 MG TABS 629912 CIPROFLOXACIN HCL Inactive ALIGN 4 MG CAPS [...] as needed DICLOFENAC SODIUM 50 MG TBEC 597516 DICLOFENAC SODIUM Inactive PREDNISONE 20 MG TAB 2 tablets once daily for 2 days, then 1 tablet once daily for 2 days PREDNISONE 20 MG TAB 573118 PREDNISONE Inactive TRUEDRAW LANCING DEVICE MISC Test twice a day dx 250.0 TRUEDRAW LANCING DEVICE MISC LANCET DEVICES Inactive TRUERESULT BLOOD GLUCOSE W/DEVICE KIT test blood sugar twice daily dx 250.00 TRUERESULT BLOOD GLUCOSE W/DEVICE KIT BLOOD GLUCOSE MONITORING SUPPL Inactive FLONASE 50 MCG/ACT SUSP 1 spray each nostril twice daily until bottle empty FLONASE 50 MCG/ACT SUSP 5145170 FLUTICASONE PROPIONATE Inactive VENTOLIN HFA 108 (90 BASE) MCG/ACT AERS 1-2 puffs every 4 hours if needed for cough/congestion VENTOLIN HFA 108 (90 BASE) MCG/ACT AERS ALBUTEROL SULFATE Inactive REQUIP 2 MG TABS Take one tablet at bedtime prn REQUIP 2 MG TABS 767942 ROPINIROLE HCL Inactive SUPER B COMPLEX/VITAMIN C TABS 1 qd SUPER B COMPLEX/ VITAMIN C TABS 86917097851 B COMPLEX-C Inactive TRUEDRAW LANCING DEVICE MISC test blood sugar twice daily dx: 250.00 TRUEDRAW LANCING DEVICE MISC LANCET DEVICES Inactive TRUETEST TEST INVITR STRP test blood sugar twice daily. DX 250.0 TRUETEST TEST INVITR STRP GLUCOSE BLOOD Inactive TRIAMCINOLONE ACETONIDE 0.1 % OINT Apply to affected areas TID for up to 2 weeks TRIAMCINOLONE ACETONIDE 0.1 % OINT 0111176 TRIAMCINOLONE ACETONIDE Inactive PREDNISONE 20 MG TAB 2 tabs daily for 3 days, 1 tab daily for 3 days, 1/2 tab daily for 2 days PREDNISONE 20 MG TAB 894570 PREDNISONE Inactive PREDNISONE 20 MG TAB 2 tabs daily for 3 days, 1 tab daily for 3 days, 1/2 tab daily for 2 days PREDNISONE 20 MG TAB 464113 PREDNISONE Inactive BACTRIM DS 800-160 MG TABS 1 po BID x 7 days BACTRIM DS 800-160 MG TABS 149807 SULFAMETHOXAZOLE-TRIMETHOPRIM Inactive ZITHROMAX 250 MG TAB 2 po today, then 1 po q days 2-5 ZITHROMAX 250 MG TAB 3790979 AZITHROMYCIN Inactive Advance Directives Directive Description Start Date DISCUSSED WITH PATIENT -- NO DECISION MADE Immunizations Vaccine Administration Date Value Standard Description Seasonal influenza vaccine, injectable, containing preservative, for > 3 years old (Afluria, FluLaval, Fluzone, Fluvirin, Fluarix, Agriflu(>=18 yo)) Fluzone (>3 yrs.) [[id number]] Influenza, seasonal, injectable influenza immunization (Flu Vax) has been administered 02/22/2012 influenza virus vaccine, unspecified formulation Seasonal influenza vaccine, injectable, containing preservative, for > 3 years old (Afluria, FluLaval, Fluzone, Fluvirin, Fluarix, Agriflu(>=18 yo)) Fluzone (>3 yrs.) [[id number]] Influenza, seasonal, injectable Vital Signs Date Name [...] Magnesium - Chemistry sodium, serum 143 mmol/L 082-767 9414/01/10 carbon dioxide, venous blood 28.0 mmol/L 21.0-32.0 potassium, serum 4.5 mmol/L 3.5-5.2 chloride, serum 104 mmol/L 98-107 blood glucose 158 mg/dL 65-110 urea nitrogen, blood 23 mg/dL 7-18 creatinine, serum 1.06 mg/dL 0.55-1.30 alanine aminotransferase (SGPT), serum 42 U/L 12-78 aspartate aminotransferase (SGOT), serum 32 U/L 15-37 calcium, serum 9.3 mg/dL 8.5-10.1 bilirubin, serum, total 0.20 mg/dL 0.00-1.00 cholesterol, serum 177 mg/dL 713-559 9867/01/10 triglyceride, serum, fasting 320 mg/dL 30-200 HDL cholesterol, serum 46 mg/dL 32-96 LDL cholesterol, serum 67 mg/dL 0-130 Lab Report: COMPREHENSIVE METABOLIC PANEL, LIPID PANEL, HEMOGLOBIN A1c - Chemistry cholesterol, serum 135 mg/dL 362-046 3102/05/17 HDL cholesterol, serum 41 mg/dL > OR=46 triglyceride, serum, fasting 206 mg/dL <150 LDL cholesterol, serum 53 MG/DL (CALC) mg/dL <130 cholesterol/HDL ratio, serum 3.3 (calc) < OR=5.0 Lab Report: HGBA1C - Chemistry hemoglobin A1C, blood, as % of total hemoglobin 7.4 % 4.3-6.0 sodium, serum 140 mmol/L 916-424 1752/09/07 potassium, serum 4.3 mmol/L 3.5-5.2 chloride, serum [...] <30 Encounters Code Encounter Date Provider Facility CPT-84735 Level 3 Est. Patient 13:33:09 CDT Tu Landeros MD [facility] CPT-78226 Level 4 Est. Patient 14:29:21 CDT Tu Landeros MD [facility] CPT-25683 Level 4 Est. 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 Patient 14:40:19 CDT Tu Landeros MD [facility] CPT-67112 Level 4 Est. Patient 14:06:04 WASHING MACHINE INSTALLER Tu Landeros MD [facility] CPT-83917 Level 3 Est. Patient 14:05:18 WASHING MACHINE INSTALLER Tu Landeros MD [facility] CPT-60340 Level 3 Est. Patient 10:06:54 WASHING MACHINE INSTALLER Miranda Suresh APRN [facility] CPT-99301 Level 4 Est. Patient 13:50:18 WASHING MACHINE INSTALLER Tu Landeros MD [facility] CPT-44012 Level 3 Est. Patient 10:30:04 CDT Tu Landeros MD [facility] CPT-90519 Level 4 Est. Patient 11:03:38 CDT Tu Landeros MD [facility] CPT-87045 Level 3 Est. Patient 10:20:44 CDT Fab Morales DO [facility] CPT-88130 Level 4 Est. Patient 14:38:57 CDT Tu Landeros MD [facility] CPT-31443 Level 4 Est. 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 Patient 09:45:25 CDT Tu Landeros MD [facility] CPT-68610 Level 4 Est. Patient 09:05:20 WASHING MACHINE INSTALLER Tu Landeros MD [facility] CPT-78309 Level 4 Est. Patient 14:09:06 CDT Tu Landeros MD [facility] CPT-82674 Level 3 Est. Patient 13:36:54 CDT Tu Landeros MD [facility] CPT-83137 Level 3 Est. Patient 08:59:14 CDT Tu Landeros MD [facility] CPT-74567 Level 3 Est. Patient 13:48:35 CDT Fab Morales DO [facility] CPT-27715 Level 4 Est. Patient 10:05:48 CDT Tu Landeros MD [facility] CPT-23237 Level 3 Est. Patient 13:38:42 CDT Marek BANKS [facility] CPT-10017 Level 5 Est. Patient 08:08:39 CDT Jerrica FRANCIS [facility] CPT-51812 Level 4 Est. Patient 14:23:38 CDT Tu Landeros MD [facility] CPT-05066 Level 3 Est. Patient 11:44:04 CDT Tu Landeros MD [facility] CPT-96395 Level 3 Est. 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 Patient 11:03:14 WASHING MACHINE INSTALLER Tu Landeros MD [facility] CPT-31028 Level 3 Est. Patient 12:42:49 CDT Tu Landeros MD [facility] CPT-40304 Level 3 Est. Patient 11:52:06 CDT Tu Landeros MD [facility] CPT-20453 Level 3 Est. Patient 13:58:11 CDT Tu Landeros MD [facility] CPT-23766 Level 3 Est. Patient 17:50:07 CDT Fab Morales DO [facility] CPT-13014 Level 3 Est. Patient 12:06:29 CDT Elvira Cervantes MD, PhD [facility] CPT-44649 Level 3 Est. Patient 15:50:32 CDT Tu Landeros MD [facility] CPT-56250 Level 4 Est. Patient 16:08:29 CDT Tu Landeros MD [facility] CPT-76815 Level 3 Est. Patient 16:04:19 CDT Tu Landeros MD [facility] CPT-20574 Level 3 Est. 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 Patient 16:24:02 WASHING MACHINE INSTALLER Tu Landeros MD [facility] CPT-54667 Level 3 Est. Patient 17:21:23 WASHING MACHINE INSTALLER Tu Landeros MD [facility] Procedures Code Procedure Name Date Entry Date Standard Description CPT-45889 Shoulder, right, comp min 2V - XRAY USE ONLY 13:50:22 CDT CPT-G0009 Administration of Pneumococcal Vaccine 15:08:26 CDT CPT-45738 Prevnar 13 Intramuscular Suspension 15:08:26 CDT 10/08 CPT-G0439 Subsequent Annual Wellness Exam 14:29:22 CDT CPT-83472 Venipuncture Draw Fee 13:15:35 CDT CPT-70104 Magnesium - LAB USE ONLY 11:14:20 WASHING MACHINE INSTALLER CPT-54040 Lipid - LAB USE ONLY 11:14:20 WASHING MACHINE INSTALLER CPT-44185 HGBA1C - LAB USE ONLY 11:14:20 WASHING MACHINE INSTALLER CPT-55869 CMP - LAB USE ONLY 11:14:19 WASHING MACHINE INSTALLER CPT-75229 CBC - LAB USE ONLY 11:14:19 WASHING MACHINE INSTALLER CPT-06460 Venipuncture Draw Fee 11:14:18 WASHING MACHINE INSTALLER CPT-52694 First Vx - Ix admin for Medicare patients 16:46:52 CDT CPT-11239 Fluzone Preservative Free Intramuscular Suspension 16:46 :51 CDT CPT-37816 CBC - LAB USE ONLY 17:14:46 CDT CPT-49031 HGBA1C - LAB USE ONLY 17:14:46 CDT CPT-76800 Venipuncture Draw Fee 17:14:46 CDT CPT-G0438 Initial Annual Wellness Exam 14:13:04 CDT CPT-52939 Breathing Tx 10:06:54 WASHING MACHINE INSTALLER CPT-83700 Postop F/U Visit 10:02:45 CDT CPT-LR Lesion Removal 09:02:56 CDT CPT-JTINJ Asp/Joint Injection 15:51:27 WASHING MACHINE INSTALLER CPT-OV Office Visit 15:52:02 WASHING MACHINE INSTALLER CPT-OV Office Visit 15:45:11 CDT CPT-000 Give Zostavax 14:09:06 CDT CPT-75311 Administration single or combination vaccine inc oral 15 :19:04 CDT CPT-67399 Zoster Vaccine (Zostavax) 15:19:04 CDT CPT-60744 Administration single or combination vaccine inc oral 20 :51:03 CDT CPT-51572 Influenza split virus > age 3 20:51:03 CDT CPT-08154 No Charge Offi Visit 14:52:03 CDT CPT-OV Office Visit 14:57:43 CDT CPT-OV Office Visit 15:22:32 CDT CPT-82806 Administration single or combination vaccine inc oral 11 :33:15 CDT CPT-48293 Influenza split virus > age 3 11:33:15 CDT
--- OUTSIDE RECORDS SUMMARY | 2018-04-25 15:40 | XMS REPORT | Clinical Summary ---
Author Author Admin, SACHI Organization [facility] Address Unknown Phone Unavailable Allergies, Adverse Reactions, Alerts Allergy Name Reaction Description Start Date Severity Status Provider DANIELLE migraine h/a Critical Active Luisa COOPEREIN migraine h/a Moderate No Longer Active Tu Landeors MD TRICOR rash, trouble breathing Critical Active [...] in limb POSTMENOPAUSAL BLEEDING ICD-627.1 Inactive Elvira Crevantes MD PhD HEALTH SCREENING ICD-V70.0 Inactive Elvira [...] ORAL TABS 1 po BID VENLAFAXINE HCL 83970852422 Active Tu Landeros MD Active GLIMEPIRIDE 1 MG ORAL TABS 1 po qd GLIMEPIRIDE 38518251670 Active Tu Landeros MD Active TRUE METRIX BLOOD GLUCOSE TEST INVITR STRP Test blood sugar BID Dx: E11.9 GLUCOSE BLOOD 66971223920 Delores Landeros MD Active TRUE METRIX AIR GLUCOSE METER W/DEVICE KIT Test blood glucose BID Dx: E11.9 BLOOD GLUCOSE MONITORING SUPPL 50348954413 Active Tu Landeros MD Active TRUETEST TEST INVITR STRP test blood sugar twice daily. DX 250.0 GLUCOSE BLOOD 06729650741 No Longer Active Mirna Stanley LPN Active TRUEDRAW LANCING DEVICE MISC test blood sugar twice daily dx: 250.00 LANCET DEVICES 35663705564 No Longer Active Mirna Stanley LPN Active ENALAPRIL MALEATE 20 MG TABS 2 po qd ENALAPRIL MALEATE 14068706014 Active Tu Landeros MD Active SUPER B COMPLEX/VITAMIN C TABS 1 qd B COMPLEX-C 08857477079 No Longer Active Tu Landeros MD Active ASPIRIN EC 81 MG ORAL TBEC 1 po qd ASPIRIN 76134135665 Active Tu Landeros MD Active GLUCOSAMINE 500 MG TABS 2 po qd GLUCOSAMINE Active Tu Landeros MD Active SIMVASTATIN 40 MG TABS 0.5 po qHS SIMVASTATIN 74059285039 Active Tu Landeros MD Active FISH OIL 1000 MG CAPS 1 po qd OMEGA-3 FATTY ACIDS 25584441477 Active Tu Landeros MD Active METFORMIN HCL 1000 MG TABS 1 po BID METFORMIN HCL 70617692005 Active Tu Landeros MD Active KLOR-CON 10 10 MEQ CR-TABS 2 po qd POTASSIUM CHLORIDE 41458595392 Active Tu Landeros MD Active FUROSEMIDE 40 MG TAB 1 po qd FUROSEMIDE 83463745409 Active Tu Landeros MD Active REQUIP 2 MG ORAL TABS 1 po qHS PRN Restless legs ROPINIROLE HCL 04935478547 Active Tu Landeros MD Active GABAPENTIN 100 MG CAPS 1 po BID GABAPENTIN 42062373200 Active Tu Landeros MD Active REQUIP 2 MG TABS Take one tablet at bedtime prn ROPINIROLE HCL 95147953805 No Longer Active Tu Landeros MD Active VENTOLIN HFA 108 (90 BASE) MCG/ACT AERS 1-2 puffs every 4 hours if needed for cough/congestion ALBUTEROL SULFATE 76311513208 No Longer Active Ambika Aden APRN Active ZITHROMAX 250 MG TAB 2 po today, then 1 po q days 2-5 AZITHROMYCIN 35611334782 No Longer Active Miranda Suresh APRN Active FLONASE 50 MCG/ACT SUSP 1 spray each nostril twice daily until bottle empty FLUTICASONE PROPIONATE 22436603214 No Longer Active Tu Landeros MD Active COLACE 100 MG CAP 1 po BID PRN Constipation DOCUSATE SODIUM 94878326121 Active Tu Landeros MD Active TRUERESULT BLOOD GLUCOSE W/DEVICE KIT test blood sugar twice daily dx 250.00 BLOOD GLUCOSE MONITORING SUPPL 65002484712 No Longer Active Tu Landeros MD Active TRUEDRAW LANCING DEVICE MISC Test twice a day dx 250.0 LANCET DEVICES 15425432257 No Longer Active Tu Landeros MD Active PREDNISONE 20 MG TAB 2 tablets once daily for 2 days, then 1 tablet once daily for 2 days PREDNISONE 13833721878 No Longer Active Tu Landeros MD Active DICLOFENAC SODIUM 50 MG TBEC 1 tablet by mouth three times a day as needed DICLOFENAC SODIUM 06737345796 No Longer Active Fab Morales DO Active EMBRACE BLOOD GLUCOSE TEST STRP test blood sugar twice daily DX 250.0 2014 GLUCOSE BLOOD 72400605846 No Longer Active Tu Landeros MD Active TRUETEST TEST STRP test blood sugar three times daily dx: 250.00 GLUCOSE BLOOD 07957709965 No Longer Active Suze Corey VOGEL Active TRUERESULT BLOOD GLUCOSE W/DEVICE KIT use to test blood sugar tid dx: 250.00 BLOOD GLUCOSE MONITORING SUPPL 82182769969 No Longer Active Suze Corye RMA Active ALIGN 4 MG CAPS 1 tid PROBIOTIC PRODUCT 21394450113 No Longer Active Shaun Sy MD Active CIPRO 500 MG TABS 1 bid x 14 days start 09-28-13 CIPROFLOXACIN HCL 78871197811 No Longer Active Shaun Sy MD Active TRAMADOL HCL 50 MG TABS 1-2 tablets every 6 hours as needed for pain TRAMADOL HCL 10042053607 Active Lesli Kellogg APRN Active HYDROCODONE-ACETAMINOPHEN 5-325 MG TABS 1 tab by mouth every 6 hours as needed for pain HYDROCODONE-ACETAMINOPHEN 58061440752 No Longer Active Tu Landeros MD Active OMEPRAZOLE 20 MG CPDR 1 po q a.m. OMEPRAZOLE 13519056562 Active Lesli Kellogg APRN Active GABAPENTIN 100 MG CAPS 1 po bid GABAPENTIN 79796738903 No Longer Active Tu Landeros MD Active B-12 100 MCG TABS Take one by mouth daily CYANOCOBALAMIN 68507410564 No Longer Active Tu Landeros MD Active BACTRIM DS 800-160 MG TABS 1 bid x 14 day start 09-28-13 SULFAMETHOXAZOLE-TRIMETHOPRIM 26698430560 No Longer Active Tu Landeros MD Active CARVEDILOL 12.5 MG TABS 1 po BID CARVEDILOL 48141729267 Active Tu Landeros MD Active TRILIPIX 135 MG CPDR 1 q hs CHOLINE FENOFIBRATE 40834254632 Active Tu Landeros MD Active FENOFIBRATE 145 MG TABS 1 po qd FENOFIBRATE 47929652282 No Longer Active JASPREET Perez Active OMEPRAZOLE 20 MG TBEC 1 PO 30 MIN BEFORE 1ST MEAL OMEPRAZOLE 20801861281 No Longer Active JASPREET Perez Active SIMVASTATIN 40 MG TABS Take one by mouth daily SIMVASTATIN 69560336669 No Longer Active JASPREET Perez Active VENLAFAXINE HCL 75 MG TABS 1 po BID VENLAFAXINE HCL 87227344346 No Longer Active [place] Norma, RMA Active CIPRO 500 MG TAB 1 tablet by mouth twice daily CIPROFLOXACIN HCL 39296207326 No Longer Active Tu Landeros MD Active VENLAFAXINE HCL 37.5 MG TABS 1 po BID VENLAFAXINE HCL 93625979393 No Longer Active Suze Nicloe RMA Active LAMISIL 250 MG TAB 1 po qd TERBINAFINE HCL 93979356630 No Longer Active Tu Landeros MD Active LORTAB 5 5-500 MG TABS 1/2 to 1 tablet by mouth every 4 hours as needed for pain HYDROCODONE-ACETAMINOPHEN 77368020332 No Longer Active Tu Landeros MD Active HYDROCODONE-ACETAMINOPHEN 5-500 MG TABS take one po Q 4-6 hours prn HYDROCODONE-ACETAMINOPHEN 20695766491 No Longer Active Tu Landeros MD Active BACTRIM DS 800-160 MG TABS 1 po BID x 7 days SULFAMETHOXAZOLE-TRIMETHOPRIM 66034589160 No Longer Active Tu Landeros MD Active VENLAFAXINE HCL 75 MG TABS 1 po BID VENLAFAXINE HCL 53076147166 No Longer Active Elvira Cervantes MD PhD Active TRAMADOL HCL 50 MG TABS 1 tablets every 6 hours as needed for pain TRAMADOL HCL 05729080512 No Longer Active Tu Landeros MD Active ACCU-CHEK FASTCLIX LANCETS MISC Use to check bloodsugar three times daily as needed LANCETS 82576888190 No Longer Active Tu Landeros MD Active ACCU-CHEK KEYONA PLUS STRP Use for testing bloodsugars three times daily as needed GLUCOSE BLOOD 17769555585 No Longer Active Tu Landeros MD Active ACCU-CHEK KEYONA PLUS W/DEVICE KIT Use for testing bloodsugars three times daily as needed BLOOD GLUCOSE MONITORING SUPPL 14481191327 No Longer Active Tu Landeros MD Active SPIRONOLACTONE 25 MG TAB 0.5 tablet by mouth daily SPIRONOLACTONE 91631583257 No Longer Active Tu Landeros MD Active ALPRAZOLAM 0.5 MG TABS 1 tab every 6hrs as needed ALPRAZOLAM 87616148910 No Longer Active Tu Landeros MD Active AUGMENTIN 875-125 MG TAB 1 tab by mouth twice daily with food AMOXICILLIN-POT CLAVULANATE 51349159649 No Longer Active Tu Landeros MD Active PREDNISONE 20 MG TAB 2 tabs daily for 3 days, 1 tab daily for 3 days, 1/2 tab daily for 2 days PREDNISONE 56022877550 No Longer Active Tu Landeros MD Active XANAX 0.5 MG TABS 1 tablet every 6 hrs prn ALPRAZOLAM 04554156347 No Longer Active Tu Landeros MD Active PREDNISONE 20 MG TAB 2 tabs daily for 3 days, 1 tab daily for 3 days, 1/2 tab daily for 2 days PREDNISONE 92287293079 No Longer Active Tu Landeros MD Active TRIAMCINOLONE ACETONIDE 0.1 % OINT Apply to affected areas TID for up to 2 weeks TRIAMCINOLONE ACETONIDE 82059488694 No Longer Active Tu Landeros MD Active LORTAB 5 5-500 MG TABS 1/2 to 1 tablet by mouth every 4 hours as needed for pain HYDROCODONE-ACETAMINOPHEN 15861456495 No Longer Active Tu Landeros MD Active MULTIVITAMINS TABS Take one by mouth daily MULTIPLE VITAMIN 05826460149 No Longer Active Tu Landeros MD Active MELATONIN 5 MG TABS Take one by mouth daily MELATONIN 80484889571 No Longer Active Tu Landeros MD Active SOMA 350 MG TAB 1 po q 6 hours prn spasm CARISOPRODOL 27579886819 No Longer Active Tu Landeros MD Active MECLIZINE HCL 25 MG CHEW TAB 1 four times a day as needed for dizziness 08/05 MECLIZINE HCL 34444171465 No Longer Active Fab Morales DO Active ANGEL NIKKOEZAdrianna 2 TEST DISK test tid prn GLUCOSE BLOOD 29493085605 No Longer Active Negra Tyler MICHAEL Active REGLAN 10 MG TAB 1 po TID PRN Nausea METOCLOPRAMIDE HCL 89268505682 No Longer Active Tu Landeros MD Active METFORMIN HCL 500 MG TABS 1 PO BID METFORMIN HCL 16148138875 No Longer Active Tu Landeros MD Active AMBIEN 10 MG TAB 1 tab by mouth at bedtime as needed for sleep ZOLPIDEM TARTRATE 25208746244 No Longer Active Tu Landeros MD Active FLUOXETINE HCL 40 MG CAPS 1 po q day FLUOXETINE HCL 70512165661 No Longer Active Mayra [place] Active TRILIPIX 135 MG CPDR 1 po qd CHOLINE FENOFIBRATE 26652853828 No Longer Active Tu Landeros MD Active AMBIEN 10 MG TAB 1 tab by mouth at bedtime as needed for sleep AMBIEN 10 MG TAB 824442 ZOLPIDEM TARTRATE Inactive METFORMIN HCL 500 MG TABS 1 PO BID METFORMIN HCL 500 MG TABS 914207 METFORMIN HCL Inactive REGLAN 10 MG TAB 1 po TID PRN [place] REGLAN 10 MG TAB 709271 METOCLOPRAMIDE HCL Inactive MECLIZINE HCL 25 MG CHEW TAB 1 four times a day as needed for dizziness 08/05 MECLIZINE HCL 25 MG CHEW TAB 282730 MECLIZINE HCL Inactive SOMA 350 MG TAB 1 po q 6 hours prn spasm SOMA 350 MG TAB 169396 CARISOPRODOL Inactive MELATONIN 5 MG TABS Take one by mouth daily MELATONIN 5 MG TABS 339320 MELATONIN Inactive MULTIVITAMINS TABS Take one by mouth daily MULTIVITAMINS TABS MULTIPLE VITAMIN Inactive LORTAB 5 5-500 MG TABS 1/2 to 1 tablet by mouth every 4 hours as needed for pain LORTAB 5 5-500 MG TABS HYDROCODONE- ACETAMINOPHEN Inactive XANAX 0.5 MG TABS 1 tablet every 6 hrs prn XANAX 0.5 MG TABS 067445 ALPRAZOLAM Inactive AUGMENTIN 875-125 MG TAB 1 tab by mouth twice daily with food AUGMENTIN 875-125 MG TAB 395808 AMOXICILLIN-POT CLAVULANATE Inactive ALPRAZOLAM 0.5 MG TABS 1 tab every 6hrs as needed ALPRAZOLAM 0.5 MG TABS 037983 ALPRAZOLAM Inactive SPIRONOLACTONE 25 MG TAB 0.5 tablet by mouth daily SPIRONOLACTONE 25 MG TAB 469556 SPIRONOLACTONE Inactive ACCU-CHEK KEYONA PLUS W/DEVICE KIT Use for testing bloodsugars three times daily as needed ACCU-CHEK KEYONA PLUS W/DEVICE KIT BLOOD GLUCOSE MONITORING SUPPL Inactive ACCU-CHEK KEYONA PLUS STRP Use for testing bloodsugars three times daily as needed ACCU-CHEK KEYONA PLUS STRP GLUCOSE BLOOD Inactive ACCU-CHEK FASTCLIX LANCETS MISC Use to check bloodsugar three times daily as needed ACCU-CHEK FASTCLIX LANCETS MISC 18147938408 LANCETS Inactive TRAMADOL HCL 50 MG TABS 1 tablets every 6 hours as needed for pain TRAMADOL HCL 50 MG TABS 233274 TRAMADOL HCL Inactive VENLAFAXINE HCL 75 MG TABS 1 po BID VENLAFAXINE HCL 75 MG TABS 595344 VENLAFAXINE HCL Inactive HYDROCODONE-ACETAMINOPHEN 5-500 MG TABS take one po Q 4-6 hours prn HYDROCODONE-ACETAMINOPHEN 5-500 MG TABS HYDROCODONE- ACETAMINOPHEN Inactive LORTAB 5 5-500 MG TABS 1/2 to 1 tablet by mouth every 4 hours as needed for pain LORTAB 5 5-500 MG TABS HYDROCODONE- ACETAMINOPHEN Inactive LAMISIL 250 MG TAB 1 po qd LAMISIL 250 MG TAB 229592 TERBINAFINE HCL Inactive VENLAFAXINE HCL 37.5 MG TABS 1 po BID VENLAFAXINE HCL 37.5 MG TABS 986140 VENLAFAXINE HCL Inactive CIPRO 500 MG TAB 1 tablet by mouth twice daily CIPRO 500 MG TAB 780241 CIPROFLOXACIN HCL Inactive VENLAFAXINE HCL 75 MG TABS 1 po BID VENLAFAXINE HCL 75 MG TABS 289214 VENLAFAXINE HCL Inactive SIMVASTATIN 40 MG TABS Take one by mouth daily SIMVASTATIN 40 MG TABS 155099 SIMVASTATIN Inactive OMEPRAZOLE 20 MG TBEC 1 PO 30 MIN BEFORE 1ST MEAL OMEPRAZOLE 20 MG TBEC 679339 OMEPRAZOLE Inactive FENOFIBRATE 145 MG TABS 1 po qd FENOFIBRATE 145 MG TABS 209822 FENOFIBRATE Inactive BACTRIM DS 800-160 MG TABS 1 bid x 14 day start 09-28-13 BACTRIM DS 800-160 MG TABS 745261 SULFAMETHOXAZOLE-TRIMETHOPRIM Inactive B-12 100 MCG TABS Take one by mouth daily B-12 100 MCG TABS CYANOCOBALAMIN Inactive GABAPENTIN 100 MG CAPS 1 po bid GABAPENTIN 100 MG CAPS 075322 GABAPENTIN Inactive HYDROCODONE-ACETAMINOPHEN 5-325 MG TABS 1 tab by mouth every 6 hours as needed for pain HYDROCODONE-ACETAMINOPHEN 5-325 MG TABS 810638 HYDROCODONE-ACETAMINOPHEN Inactive CIPRO 500 MG TABS 1 bid x 14 days start 09-28-13 CIPRO 500 MG TABS 650687 CIPROFLOXACIN HCL Inactive ALIGN 4 MG CAPS [...] as needed DICLOFENAC SODIUM 50 MG TBEC 510773 DICLOFENAC SODIUM Inactive PREDNISONE 20 MG TAB 2 tablets once daily for 2 days, then 1 tablet once daily for 2 days PREDNISONE 20 MG TAB 607531 PREDNISONE Inactive TRUEDRAW LANCING DEVICE MISC Test twice a day dx 250.0 TRUEDRAW LANCING DEVICE MISC LANCET DEVICES Inactive TRUERESULT BLOOD GLUCOSE W/DEVICE KIT test blood sugar twice daily dx 250.00 TRUERESULT BLOOD GLUCOSE W/DEVICE KIT BLOOD GLUCOSE MONITORING SUPPL Inactive FLONASE 50 MCG/ACT SUSP 1 spray each nostril twice daily until bottle empty FLONASE 50 MCG/ACT SUSP 3933387 FLUTICASONE PROPIONATE Inactive VENTOLIN HFA 108 (90 BASE) MCG/ACT AERS 1-2 puffs every 4 hours if needed for cough/congestion VENTOLIN HFA 108 (90 BASE) MCG/ACT AERS ALBUTEROL SULFATE Inactive REQUIP 2 MG TABS Take one tablet at bedtime prn REQUIP 2 MG TABS 011622 ROPINIROLE HCL Inactive SUPER B COMPLEX/VITAMIN C TABS 1 qd SUPER B COMPLEX/ VITAMIN C TABS 44386799711 B COMPLEX-C Inactive TRUEDRAW LANCING DEVICE MISC test blood sugar twice daily dx: 250.00 TRUEDRAW LANCING DEVICE MISC LANCET DEVICES Inactive TRUETEST TEST INVITR STRP test blood sugar twice daily. DX 250.0 TRUETEST TEST INVITR STRP GLUCOSE BLOOD Inactive TRIAMCINOLONE ACETONIDE 0.1 % OINT Apply to affected areas TID for up to 2 weeks TRIAMCINOLONE ACETONIDE 0.1 % OINT 5697160 TRIAMCINOLONE ACETONIDE Inactive PREDNISONE 20 MG TAB 2 tabs daily for 3 days, 1 tab daily for 3 days, 1/2 tab daily for 2 days PREDNISONE 20 MG TAB 610808 PREDNISONE Inactive PREDNISONE 20 MG TAB 2 tabs daily for 3 days, 1 tab daily for 3 days, 1/2 tab daily for 2 days PREDNISONE 20 MG TAB 880180 PREDNISONE Inactive BACTRIM DS 800-160 MG TABS 1 po BID x 7 days BACTRIM DS 800-160 MG TABS 479257 SULFAMETHOXAZOLE-TRIMETHOPRIM Inactive ZITHROMAX 250 MG TAB 2 po today, then 1 po q days 2-5 ZITHROMAX 250 MG TAB 0765173 AZITHROMYCIN Inactive Advance Directives Directive Description Start Date DISCUSSED WITH PATIENT -- NO DECISION MADE Immunizations Vaccine Administration Date Value Standard Description Seasonal influenza vaccine, injectable, containing preservative, for > 3 years old (Afluria, FluLaval, Fluzone, Fluvirin, Fluarix, Agriflu(>=18 yo)) Fluzone (>3 yrs.) [CXQ397] Influenza, seasonal, injectable influenza immunization (Flu Vax) has been administered 02/22/2012 influenza virus vaccine, unspecified formulation Seasonal influenza vaccine, injectable, containing preservative, for > 3 years old (Afluria, FluLaval, Fluzone, Fluvirin, Fluarix, Agriflu(>=18 yo)) Fluzone (>3 yrs.) [[id number]] Influenza, seasonal, injectable Vital Signs Date Name [...] Magnesium - Chemistry sodium, serum 143 mmol/L 806-431 7264/01/10 carbon dioxide, venous blood 28.0 mmol/L 21.0-32.0 potassium, serum 4.5 mmol/L 3.5-5.2 chloride, serum 104 mmol/L 98-107 blood glucose 158 mg/dL 65-110 urea nitrogen, blood 23 mg/dL 7-18 creatinine, serum 1.06 mg/dL 0.55-1.30 alanine aminotransferase (SGPT), serum 42 U/L 12-78 aspartate aminotransferase (SGOT), serum 32 U/L 15-37 calcium, serum 9.3 mg/dL 8.5-10.1 bilirubin, serum, total 0.20 mg/dL 0.00-1.00 cholesterol, serum 177 mg/dL 661-052 1319/01/10 triglyceride, serum, fasting 320 mg/dL 30-200 HDL cholesterol, serum 46 mg/dL 32-96 LDL cholesterol, serum 67 mg/dL 0-130 Lab Report: COMPREHENSIVE METABOLIC PANEL, LIPID PANEL, HEMOGLOBIN A1c - Chemistry cholesterol, serum 135 mg/dL 387-701 3653/05/17 HDL cholesterol, serum 41 mg/dL > OR=46 triglyceride, serum, fasting 206 mg/dL <150 LDL cholesterol, serum 53 MG/DL (CALC) mg/dL <130 cholesterol/HDL ratio, serum 3.3 (calc) < OR=5.0 Lab Report: HGBA1C - Chemistry hemoglobin A1C, blood, as % of total hemoglobin 7.4 % 4.3-6.0 sodium, serum 140 mmol/L 455-734 6177/09/07 potassium, serum 4.3 mmol/L 3.5-5.2 chloride, serum [...] <30 Encounters Code Encounter Date Provider Facility CPT-95729 Level 4 Est. Patient 14:29:21 CDT Tu Landeros MD [facility] CPT-77749 Level 4 Est. Patient 09:08:17 ADVERTISING WRITER Tu Landeros MD [facility] CPT-43900 Level 4 Est. Patient 14:40:19 CDT Tu Landeros MD [facility] CPT-63444 Level 4 Est. Patient 14:06:04 ADVERTISING WRITER Tu Landeros MD [facility] CPT-43804 Level 3 Est. Patient 14:05:18 ADVERTISING WRITER Tu Landeros MD [facility] CPT-45297 Level 3 Est. Patient 10:06:54 ADVERTISING WRITER [place] Suresh APRN [facility] CPT-76816 Level 4 Est. Patient 13:50:18 ADVERTISING WRITER Tu Landeros MD [facility] CPT-28323 Level 3 Est. Patient 10:30:04 CDT Tu Landeros MD [facility] CPT-02660 Level 4 Est. Patient 11:03:38 CDT Tu Landeros MD [facility] CPT-62419 Level 3 Est. Patient 10:20:44 CDT Fab Morales DO [facility] CPT-83933 Level 4 Est. Patient 14:38:57 CDT Tu Landeros MD [facility] CPT-72247 Level 4 Est. Patient 14:27:39 ADVERTISING WRITER Tu Landeros MD [facility] CPT-25078 Level 4 Est. Patient 09:45:25 CDT Tu Landeros MD [facility] CPT-52662 Level 4 Est. Patient 09:05:20 ADVERTISING WRITER Tu Landeros MD [facility] CPT-95468 Level 4 Est. Patient 14:09:06 CDT Tu Landeros MD [facility] CPT-97406 Level 3 Est. Patient 13:36:54 CDT Tu Landeros MD [facility] CPT-97041 Level 3 Est. Patient 08:59:14 CDT Tu Landeros MD [facility] CPT-26753 Level 3 Est. Patient 13:48:35 CDT Fab Morales DO [facility] CPT-65475 Level 4 Est. Patient 10:05:48 CDT Tu Landeros MD [facility] CPT-15549 Level 3 Est. Patient 13:38:42 CDT Marek BANKS [facility] CPT-85764 Level 5 Est. Patient 08:08:39 CDT Piyushrichajanelle Dawsontay FRANCIS [facility] CPT-18642 Level 4 Est. Patient 14:23:38 CDT Tu Landeros MD [facility] CPT-58482 Level 3 Est. Patient 11:44:04 CDT Tu Landeros MD [facility] CPT-57095 Level 3 Est. Patient 11:03:20 ADVERTISING WRITER Tu Landeros MD [facility] CPT-44130 Level 3 Est. Patient 11:03:14 ADVERTISING WRITER Tu Landeros MD [facility] CPT-60255 Level 3 Est. Patient 12:42:49 CDT Tu Landeros MD [facility] CPT-27630 Level 3 Est. Patient 11:52:06 CDT Tu Landeros MD [facility] CPT-92652 Level 3 Est. Patient 13:58:11 CDT Tu Landeros MD [facility] CPT-74977 Level 3 Est. Patient 17:50:07 CDT Fab Morales DO [facility] CPT-07306 Level 3 Est. Patient 12:06:29 CDT Elvira Cervantes MD PhD [facility] CPT-43237 Level 3 Est. Patient 15:50:32 CDT Tu Landeros MD [facility] CPT-66671 Level 4 Est. Patient 16:08:29 CDT Tu Landreos MD [facility] CPT-43664 Level 3 Est. Patient 16:04:19 CDT Tu Landeros MD [facility] CPT-41613 Level 3 Est. Patient 11:22:30 ADVERTISING WRITER Tu Landeros MD [facility] CPT-12581 Level 4 Est. Patient 16:24:02 ADVERTISING WRITER Tu Landeros MD [facility] CPT-43963 Level 3 Est. Patient 17:21:23 ADVERTISING WRITER Tu Landeros MD [facility] Procedures Code Procedure Name Date Entry Date Standard Description CPT-G0009 Administration of Pneumococcal Vaccine 15:08:26 CDT CPT-78810 Prevnar 13 Intramuscular Suspension 15:08:26 CDT 10/08 CPT-G0439 [facility] Annual Wellness Exam 14:29:22 CDT CPT-55101 Venipuncture Draw Fee 13:15:35 CDT CPT-90213 Magnesium - LAB USE ONLY 11:14:20 ADVERTISING WRITER CPT-49963 Lipid - LAB USE ONLY 11:14:20 ADVERTISING WRITER CPT-59895 HGBA1C - LAB USE ONLY 11:14:20 ADVERTISING WRITER CPT-94397 CMP - LAB USE ONLY 11:14:19 ADVERTISING WRITER CPT-14858 CBC - LAB USE ONLY 11:14:19 ADVERTISING WRITER CPT-81657 Venipuncture Draw Fee 11:14:18 ADVERTISING WRITER CPT-35629 First Vx - Ix admin for Medicare patients 16:46:52 CDT CPT-62016 Fluzone Preservative Free Intramuscular Suspension 16:46 :51 CDT CPT-22429 CBC - LAB USE ONLY 17:14:46 CDT CPT-84320 HGBA1C - LAB USE ONLY 17:14:46 CDT CPT-92407 Venipuncture Draw Fee 17:14:46 CDT CPT-G0438 Initial Annual Wellness Exam 14:13:04 CDT CPT-98402 Breathing Tx 10:06:54 ADVERTISING WRITER CPT-01260 Postop F/U Visit 10:02:45 CDT CPT-LR Lesion Removal 09:02:56 CDT CPT-JTINJ Asp/Joint Injection 15:51:27 ADVERTISING WRITER CPT-OV Office Visit 15:52:02 ADVERTISING WRITER CPT-OV Office Visit 15:45:11 CDT CPT-000 Give Zostavax 14:09:06 CDT CPT-49033 Administration single or combination vaccine inc oral 15 :19:04 CDT CPT-14329 Zoster Vaccine (Zostavax) 15:19:04 CDT CPT-67459 Administration single or combination vaccine inc oral 20 :51:03 CDT CPT-67658 Influenza split virus > age 3 20:51:03 CDT CPT-34613 No Charge Offi Visit 14:52:03 CDT CPT-OV Office Visit 14:57:43 CDT CPT-OV Office Visit 15:22:32 CDT CPT-15440 Administration single or combination vaccine inc oral 11 :33:15 CDT CPT-60855 Influenza split virus > age 3 11:33:15 CDT
--- OUTSIDE RECORDS SUMMARY | 2018-04-25 15:42 | XMS REPORT | Clinical Summary ---
Author Author Admin, SACHI Organization [employer] Address Unknown Phone Unavailable Allergies, Adverse Reactions, [...] other nonspecific skin eruption FATIGUE 780.79 Resolved uT Landeros MD Other malaise and fatigue CARPAL [...] po TID PRN Muscle Spasm CYCLOBENZAPRINE HCL 44618406936 Active Tu Landeros MD Active DICLOFENAC SODIUM 50 MG ORAL TBEC 1 po BID PRN Pain DICLOFENAC SODIUM 41937574492 Delores Landeros MD Active INVOKANA 100 MG ORAL TABS 1 po qd CANAGLIFLOZIN 70829923442 Active Tu Landeros MD Active GLIPIZIDE 5 MG ORAL TABS 1 po qd GLIPIZIDE 42018093247 No Longer Active Tu Landeros MD Active VENLAFAXINE HCL 75 MG ORAL TABS 1 po BID VENLAFAXINE HCL 17406597700 Active Tu Landeros MD Active GLIMEPIRIDE 1 MG ORAL TABS 1 po qd GLIMEPIRIDE 33927112115 No Longer Active Tu Landeros MD Active TRUE METRIX BLOOD GLUCOSE TEST INVITR STRP Test blood sugar BID Dx: E11.9 GLUCOSE BLOOD 29054679326 Active Tu Landeros MD Active TRUE METRIX AIR GLUCOSE METER W/DEVICE KIT Test blood glucose BID Dx: E11.9 BLOOD GLUCOSE MONITORING SUPPL 90441798967 Active Tu Landeros MD Active TRUETEST TEST INVITR STRP test blood sugar twice daily. DX 250.0 GLUCOSE BLOOD 76310464605 No Longer Active Mirna Stanley LPN Active TRUEDRAW LANCING DEVICE MISC test blood sugar twice daily dx: 250.00 LANCET DEVICES 69375027443 No Longer Active Mirna Stanley LPN Active ENALAPRIL MALEATE 20 MG TABS 2 po qd ENALAPRIL MALEATE 99347742231 Active Lesli Kellogg APRN Active SUPER B COMPLEX/VITAMIN C TABS 1 qd B COMPLEX-C 45128587584 No Longer Active Tu Landeros MD Active ASPIRIN EC 81 MG ORAL TBEC 1 po qd ASPIRIN 58761082302 Active Tu Landeros MD Active GLUCOSAMINE 500 MG TABS 2 po qd GLUCOSAMINE Active Tu Landeros MD Active SIMVASTATIN 40 MG TABS 0.5 po qHS SIMVASTATIN 99448194606 Active Tu Landeros MD Active FISH OIL 1000 MG CAPS 1 po qd OMEGA-3 FATTY ACIDS 79124775968 Active Tu Landeros MD Active METFORMIN HCL 1000 MG TABS 1 po BID METFORMIN HCL 74267019798 Active Tu Landeros MD Active KLOR-CON 10 10 MEQ CR-TABS 2 po qd POTASSIUM CHLORIDE 25362887423 Active Tu Landeros MD Active FUROSEMIDE 40 MG TAB 1 po qd FUROSEMIDE 48486118242 Active Tu Landeros MD Active REQUIP 2 MG ORAL TABS 1 po qHS PRN Restless legs ROPINIROLE HCL 20651014579 Active Tu Landeros MD Active GABAPENTIN 100 MG CAPS 1 po BID GABAPENTIN 91493463691 Active Tu Landeros MD Active REQUIP 2 MG TABS Take one tablet at bedtime prn ROPINIROLE HCL 45245113336 No Longer Active Tu Landeros MD Active VENTOLIN HFA 108 (90 BASE) MCG/ACT AERS 1-2 puffs every 4 hours if needed for cough/congestion ALBUTEROL SULFATE 07404781387 No Longer Active Ambika Aden APRN Active ZITHROMAX 250 MG TAB 2 po today, then 1 po q days 2-5 AZITHROMYCIN 08644073316 No Longer Active Miranda Suresh APRN Active FLONASE 50 MCG/ACT SUSP 1 spray each nostril twice daily until bottle empty FLUTICASONE PROPIONATE 98673911457 No Longer Active Tu Landeros MD Active COLACE 100 MG CAP 1 po BID PRN Constipation DOCUSATE SODIUM 79565113113 Active Tu Landeros MD Active TRUERESULT BLOOD GLUCOSE W/DEVICE KIT test blood sugar twice daily dx 250.00 BLOOD GLUCOSE MONITORING SUPPL 56514247813 No Longer Active Tu Landeros MD Active TRUEDRAW LANCING DEVICE MISC Test twice a day dx 250.0 LANCET DEVICES 03844042647 No Longer Active Tu Landeros MD Active PREDNISONE 20 MG TAB 2 tablets once daily for 2 days, then 1 tablet once daily for 2 days PREDNISONE 91224722382 No Longer Active Tu Landeros MD Active DICLOFENAC SODIUM 50 MG TBEC 1 tablet by mouth three times a day as needed DICLOFENAC SODIUM 35211264370 No Longer Active Fab Morales DO Active EMBRACE BLOOD GLUCOSE TEST STRP test blood sugar twice daily DX 250.0 2014 GLUCOSE BLOOD 16147567992 No Longer Active Tu Landeros MD Active TRUETEST TEST STRP test blood sugar three times daily dx: 250.00 GLUCOSE BLOOD 06830657363 No Longer Active Suze Nicole RMA Active TRUERESULT BLOOD GLUCOSE W/DEVICE KIT use to test blood sugar tid dx: 250.00 BLOOD GLUCOSE MONITORING SUPPL 69340130189 No Longer Active Suze Corey RMA Active ALIGN 4 MG CAPS 1 tid PROBIOTIC PRODUCT 97484638846 No Longer Active Shaun Sy MD Active CIPRO 500 MG TABS 1 bid x 14 days start 09-28-13 CIPROFLOXACIN HCL 99059722532 No Longer Active Shaun Sy MD Active TRAMADOL HCL 50 MG TABS 1-2 tablets every 6 hours as needed for pain TRAMADOL HCL 21010395759 Active Tu Landeros MD Active HYDROCODONE-ACETAMINOPHEN 5-325 MG TABS 1 tab by mouth every 6 hours as needed for pain HYDROCODONE-ACETAMINOPHEN 24265830443 No Longer Active Tu Landeros MD Active OMEPRAZOLE 20 MG CPDR 1 po q a.m. OMEPRAZOLE 22683973042 Active Fab Morales DO Active GABAPENTIN 100 MG CAPS 1 po bid GABAPENTIN 89768084731 No Longer Active Tu Landeros MD Active B-12 100 MCG TABS Take one by mouth daily CYANOCOBALAMIN 29576593892 No Longer Active Tu Landeros MD Active BACTRIM DS 800-160 MG TABS 1 bid x 14 day start 09-28-13 SULFAMETHOXAZOLE-TRIMETHOPRIM 85498426169 No Longer Active Tu Landeros MD Active CARVEDILOL 12.5 MG TABS 1 po BID CARVEDILOL 42115520710 Active Lesli Kellogg APRN Active TRILIPIX 135 MG CPDR 1 q hs CHOLINE FENOFIBRATE 94122233318 Active Tu Landeros MD Active FENOFIBRATE 145 MG TABS 1 po qd FENOFIBRATE 26863695798 No Longer Active JASPREET Perez Active OMEPRAZOLE 20 MG TBEC 1 PO 30 MIN BEFORE 1ST MEAL OMEPRAZOLE 55041026490 No Longer Active JASPREET Perez Active SIMVASTATIN 40 MG TABS Take one by mouth daily SIMVASTATIN 43014544458 No Longer Active JASPREET Perez Active VENLAFAXINE HCL 75 MG TABS 1 po BID VENLAFAXINE HCL 52508414608 No Longer Active JASPREET Perez Active CIPRO 500 MG TAB 1 tablet by mouth twice daily CIPROFLOXACIN HCL 28541091649 No Longer Active Tu Landeros MD Active VENLAFAXINE HCL 37.5 MG TABS 1 po BID VENLAFAXINE HCL 48775389502 No Longer Active Suzebianca Nicole [facility] Active LAMISIL 250 MG TAB 1 po qd TERBINAFINE HCL 78958816685 No Longer Active Tu Landeros MD Active LORTAB 5 5-500 MG TABS 1/2 to 1 tablet by mouth every 4 hours as needed for pain HYDROCODONE-ACETAMINOPHEN 66185319034 No Longer Active Tu Landeros MD Active HYDROCODONE-ACETAMINOPHEN 5-500 MG TABS take one po Q 4-6 hours prn HYDROCODONE-ACETAMINOPHEN 20698329790 No Longer Active Tu Landeros MD Active BACTRIM DS 800-160 MG TABS 1 po BID x 7 days SULFAMETHOXAZOLE-TRIMETHOPRIM 41654515900 No Longer Active Tu Landeros MD Active VENLAFAXINE HCL 75 MG TABS 1 po BID VENLAFAXINE HCL 07278338742 No Longer Active Elvira Cervantes MD PhD Active TRAMADOL HCL 50 MG TABS 1 tablets every 6 hours as needed for pain TRAMADOL HCL 33978226019 No Longer Active Tu Landeros MD Active ACCU-CHEK FASTCLIX LANCETS MISC Use to check bloodsugar three times daily as needed LANCETS 78130430834 No Longer Active Tu Landeros MD Active ACCU-CHEK KEYONA PLUS STRP Use for testing bloodsugars three times daily as needed GLUCOSE BLOOD 13597498792 No Longer Active Tu Landeros MD Active ACCU-CHEK KEYONA PLUS W/DEVICE KIT Use for testing bloodsugars three times daily as needed BLOOD GLUCOSE MONITORING SUPPL 11150337927 No Longer Active Tu Landeros MD Active SPIRONOLACTONE 25 MG TAB 0.5 tablet by mouth daily SPIRONOLACTONE 69677843264 No Longer Active Tu Landeros MD Active ALPRAZOLAM 0.5 MG TABS 1 tab every 6hrs as needed ALPRAZOLAM 05401409309 No Longer Active Tu Landeros MD Active AUGMENTIN 875-125 MG TAB 1 tab by mouth twice daily with food AMOXICILLIN-POT CLAVULANATE 94359946771 No Longer Active Tu Landeros MD Active PREDNISONE 20 MG TAB 2 tabs daily for 3 days, 1 tab daily for 3 days, 1/2 tab daily for 2 days PREDNISONE 18377425251 No Longer Active Tu Landeros MD Active XANAX 0.5 MG TABS 1 tablet every 6 hrs prn ALPRAZOLAM 59278587660 No Longer Active Tu Landeros MD Active PREDNISONE 20 MG TAB 2 tabs daily for 3 days, 1 tab daily for 3 days, 1/2 tab daily for 2 days PREDNISONE 38150768297 No Longer Active Tu Landeros MD Active TRIAMCINOLONE ACETONIDE 0.1 % OINT Apply to affected areas TID for up to 2 weeks TRIAMCINOLONE ACETONIDE 68081257356 No Longer Active Tu Landeros MD Active LORTAB 5 5-500 MG TABS 1/2 to 1 tablet by mouth every 4 hours as needed for pain HYDROCODONE-ACETAMINOPHEN 01829099747 No Longer Active Tu Landeros MD Active MULTIVITAMINS TABS Take one by mouth daily MULTIPLE VITAMIN 92082980012 No Longer Active Tu Landeros MD Active MELATONIN 5 MG TABS Take one by mouth daily MELATONIN 05027441464 No Longer Active Tu Landeros MD Active SOMA 350 MG TAB 1 po q 6 hours prn spasm CARISOPRODOL 03644387577 No Longer Active Tu Landeros MD Active MECLIZINE HCL 25 MG CHEW TAB 1 four times a day as needed for dizziness 08/05 MECLIZINE HCL 07406023885 No Longer Active Fab Morales DO Active ANGEL BREEZE 2 TEST DISK test tid prn GLUCOSE BLOOD 39787158671 No Longer Active Negra Scott RN Active REGLAN 10 MG TAB 1 po TID PRN [place] METOCLOPRAMIDE HCL 17437223917 No Longer Active Tu Landeros MD Active METFORMIN HCL 500 MG TABS 1 PO BID METFORMIN HCL 89635508325 No Longer Active Tu Landeros MD Active AMBIEN 10 MG TAB 1 tab by mouth at bedtime as needed for sleep ZOLPIDEM TARTRATE 51187215329 No Longer Active Tu Landeros MD Active FLUOXETINE HCL 40 MG CAPS 1 po q day FLUOXETINE HCL 06534474021 No Longer Active Mayra [place] Active TRILIPIX 135 MG CPDR 1 po qd CHOLINE FENOFIBRATE 44043192483 No Longer Active Tu Landeros MD Active AMBIEN 10 MG TAB 1 tab by mouth at bedtime as needed for sleep AMBIEN 10 MG TAB 896593 ZOLPIDEM TARTRATE Inactive METFORMIN HCL 500 MG TABS 1 PO BID METFORMIN HCL 500 MG TABS 899715 METFORMIN HCL Inactive REGLAN 10 MG TAB 1 po TID PRN Nausea REGLAN 10 MG TAB 853321 METOCLOPRAMIDE HCL Inactive MECLIZINE HCL 25 MG CHEW TAB 1 four times a day as needed for dizziness 08/05 MECLIZINE HCL 25 MG CHEW TAB 384396 MECLIZINE HCL Inactive SOMA 350 MG TAB 1 po q 6 hours prn spasm SOMA 350 MG TAB 598542 CARISOPRODOL Inactive MELATONIN 5 MG TABS Take one by mouth daily MELATONIN 5 MG TABS 719510 MELATONIN Inactive MULTIVITAMINS TABS Take one by mouth daily MULTIVITAMINS TABS MULTIPLE VITAMIN Inactive LORTAB 5 5-500 MG TABS 1/2 to 1 tablet by mouth every 4 hours as needed for pain LORTAB 5 5-500 MG TABS HYDROCODONE- ACETAMINOPHEN Inactive XANAX 0.5 MG TABS 1 tablet every 6 hrs prn XANAX 0.5 MG TABS 957364 ALPRAZOLAM Inactive AUGMENTIN 875-125 MG TAB 1 tab by mouth twice daily with food AUGMENTIN 875-125 MG TAB 741634 AMOXICILLIN-POT CLAVULANATE Inactive ALPRAZOLAM 0.5 MG TABS 1 tab every 6hrs as needed ALPRAZOLAM 0.5 MG TABS 720310 ALPRAZOLAM Inactive SPIRONOLACTONE 25 MG TAB 0.5 tablet by mouth daily SPIRONOLACTONE 25 MG TAB 479593 SPIRONOLACTONE Inactive ACCU-CHEK KEYONA PLUS W/DEVICE KIT Use for testing bloodsugars three times daily as needed ACCU-CHEK KEYONA PLUS W/DEVICE KIT BLOOD GLUCOSE MONITORING SUPPL Inactive ACCU-CHEK KEYONA PLUS STRP Use for testing bloodsugars three times daily as needed ACCU-CHEK KEYONA PLUS STRP GLUCOSE BLOOD Inactive ACCU-CHEK FASTCLIX LANCETS MISC Use to check bloodsugar three times daily as needed ACCU-CHEK FASTCLIX LANCETS MISC 31260065065 [facility] Inactive TRAMADOL HCL 50 MG TABS 1 tablets every 6 hours as needed for pain TRAMADOL HCL 50 MG TABS 174952 TRAMADOL HCL Inactive VENLAFAXINE HCL 75 MG TABS 1 po BID VENLAFAXINE HCL 75 MG TABS 008652 VENLAFAXINE HCL Inactive HYDROCODONE-ACETAMINOPHEN 5-500 MG TABS take one po Q 4-6 hours prn HYDROCODONE-ACETAMINOPHEN 5-500 MG TABS HYDROCODONE- ACETAMINOPHEN Inactive LORTAB 5 5-500 MG TABS 1/2 to 1 tablet by mouth every 4 hours as needed for pain LORTAB 5 5-500 MG TABS HYDROCODONE- ACETAMINOPHEN Inactive LAMISIL 250 MG TAB 1 po qd LAMISIL 250 MG TAB 114993 TERBINAFINE HCL Inactive VENLAFAXINE HCL 37.5 MG TABS 1 po BID VENLAFAXINE HCL 37.5 MG TABS 706310 VENLAFAXINE HCL Inactive CIPRO 500 MG TAB 1 tablet by mouth twice daily CIPRO 500 MG TAB 925723 CIPROFLOXACIN HCL Inactive VENLAFAXINE HCL 75 MG TABS 1 po BID VENLAFAXINE HCL 75 MG TABS 799013 VENLAFAXINE HCL Inactive SIMVASTATIN 40 MG TABS Take one by mouth daily SIMVASTATIN 40 MG TABS 408929 SIMVASTATIN Inactive OMEPRAZOLE 20 MG TBEC 1 PO 30 MIN BEFORE 1ST MEAL OMEPRAZOLE 20 MG TBEC 306687 OMEPRAZOLE Inactive FENOFIBRATE 145 MG TABS 1 po qd FENOFIBRATE 145 MG TABS 512370 FENOFIBRATE Inactive BACTRIM DS 800-160 MG TABS 1 bid x 14 day start 09-28-13 BACTRIM DS 800-160 MG TABS 455158 SULFAMETHOXAZOLE-TRIMETHOPRIM Inactive B-12 100 MCG TABS Take one by mouth daily B-12 100 MCG TABS CYANOCOBALAMIN Inactive GABAPENTIN 100 MG CAPS 1 po bid GABAPENTIN 100 MG CAPS 690568 GABAPENTIN Inactive HYDROCODONE-ACETAMINOPHEN 5-325 MG TABS 1 tab by mouth every 6 hours as needed for pain HYDROCODONE-ACETAMINOPHEN 5-325 MG TABS 025678 HYDROCODONE-ACETAMINOPHEN Inactive CIPRO 500 MG TABS 1 bid x 14 days start 09-28-13 CIPRO 500 MG TABS 788118 CIPROFLOXACIN HCL Inactive ALIGN 4 MG CAPS [...] as needed DICLOFENAC SODIUM 50 MG TBEC 144090 DICLOFENAC SODIUM Inactive PREDNISONE 20 MG TAB 2 tablets once daily for 2 days, then 1 tablet once daily for 2 days PREDNISONE 20 MG TAB 027143 PREDNISONE Inactive TRUEDRAW LANCING DEVICE MISC Test twice a day dx 250.0 TRUEDRAW LANCING DEVICE MISC LANCET DEVICES Inactive TRUERESULT BLOOD GLUCOSE W/DEVICE KIT test blood sugar twice daily dx 250.00 TRUERESULT BLOOD GLUCOSE W/DEVICE KIT BLOOD GLUCOSE MONITORING SUPPL Inactive FLONASE 50 MCG/ACT SUSP 1 spray each nostril twice daily until bottle empty FLONASE 50 MCG/ACT SUSP 8304232 FLUTICASONE PROPIONATE Inactive VENTOLIN HFA 108 (90 BASE) MCG/ACT AERS 1-2 puffs every 4 hours if needed for cough/congestion VENTOLIN HFA 108 (90 BASE) MCG/ACT AERS ALBUTEROL SULFATE Inactive REQUIP 2 MG TABS Take one tablet at bedtime prn REQUIP 2 MG TABS 273594 ROPINIROLE HCL Inactive SUPER B COMPLEX/VITAMIN C TABS 1 qd SUPER B COMPLEX/ VITAMIN C TABS 99347940946 B COMPLEX-C Inactive TRUEDRAW LANCING DEVICE MISC test blood sugar twice daily dx: 250.00 TRUEDRAW LANCING DEVICE MISC LANCET DEVICES Inactive TRUETEST TEST INVITR STRP test blood sugar twice daily. DX 250.0 TRUETEST TEST INVITR STRP GLUCOSE BLOOD Inactive TRIAMCINOLONE ACETONIDE 0.1 % OINT Apply to affected areas TID for up to 2 weeks TRIAMCINOLONE ACETONIDE 0.1 % OINT 8457762 TRIAMCINOLONE ACETONIDE Inactive PREDNISONE 20 MG TAB 2 tabs daily for 3 days, 1 tab daily for 3 days, 1/2 tab daily for 2 days PREDNISONE 20 MG TAB 230520 PREDNISONE Inactive PREDNISONE 20 MG TAB 2 tabs daily for 3 days, 1 tab daily for 3 days, 1/2 tab daily for 2 days PREDNISONE 20 MG TAB 510412 PREDNISONE Inactive BACTRIM DS 800-160 MG TABS 1 po BID x 7 days BACTRIM DS 800-160 MG TABS 328848 SULFAMETHOXAZOLE-TRIMETHOPRIM Inactive ZITHROMAX 250 MG TAB 2 po today, then 1 po q days 2-5 ZITHROMAX 250 MG TAB 8708879 AZITHROMYCIN Inactive Advance Directives Directive Description Start Date DISCUSSED WITH PATIENT -- NO DECISION MADE Immunizations Vaccine Administration Date Value Standard Description Seasonal influenza vaccine, injectable, containing preservative, for > 3 years old (Afluria, FluLaval, Fluzone, Fluvirin, Fluarix, Agriflu(>=18 yo)) Fluzone (>3 yrs.) [[id number]] Influenza, seasonal, injectable influenza immunization (Flu Vax) has been administered 02/22/2012 influenza virus vaccine, unspecified formulation Seasonal influenza vaccine, injectable, containing preservative, for > 3 years old (Afluria, FluLaval, Fluzone, Fluvirin, Fluarix, Agriflu(>=18 yo)) Fluzone (>3 yrs.) [[id number]] Influenza, seasonal, injectable Vital Signs Date Name [...] Magnesium - Chemistry sodium, serum 143 mmol/L 246-101 3662/01/10 carbon dioxide, venous blood 28.0 mmol/L 21.0-32.0 potassium, serum 4.5 mmol/L 3.5-5.2 chloride, serum 104 mmol/L 98-107 blood glucose 158 mg/dL 65-110 urea nitrogen, blood 23 mg/dL 7-18 creatinine, serum 1.06 mg/dL 0.55-1.30 alanine aminotransferase (SGPT), serum 42 U/L 12-78 aspartate aminotransferase (SGOT), serum 32 U/L 15-37 calcium, serum 9.3 mg/dL 8.5-10.1 bilirubin, serum, total 0.20 mg/dL 0.00-1.00 cholesterol, serum 177 mg/dL 505-627 2353/01/10 triglyceride, serum, fasting 320 mg/dL 30-200 HDL cholesterol, serum 46 mg/dL 32-96 LDL cholesterol, serum 67 mg/dL 0-130 Lab Report: COMPREHENSIVE METABOLIC PANEL, LIPID PANEL, HEMOGLOBIN A1c - Chemistry cholesterol, serum 135 mg/dL 050-883 2734/05/17 HDL cholesterol, serum 41 mg/dL > OR=46 triglyceride, serum, fasting 206 mg/dL <150 LDL cholesterol, serum 53 MG/DL (CALC) mg/dL <130 cholesterol/HDL ratio, serum 3.3 (calc) < OR=5.0 Lab Report: HGBA1C - Chemistry hemoglobin A1C, blood, as % of total hemoglobin 7.4 % 4.3-6.0 sodium, serum 140 mmol/L 751-441 6928/09/07 potassium, serum 4.3 mmol/L 3.5-5.2 chloride, serum [...] <30 Encounters Code Encounter Date Provider Facility CPT-66929 Level 3 Est. Patient 13:33:09 CDT Tu Landeros MD [facility] CPT-26113 Level 4 Est. Patient 14:29:21 CDT Tu Landeros MD [facility] CPT-08451 Level 4 Est. Patient 09:08:17 FRUIT INSPECTOR Tu Landeros MD [facility] CPT-66421 Level 4 Est. Patient 14:40:19 CDT Tu Landeros MD [facility] CPT-32108 Level 4 Est. Patient 14:06:04 FRUIT INSPECTOR Tu Landeros MD [facility] CPT-64687 Level 3 Est. Patient 14:05:18 FRUIT INSPECTOR Tu Landeros MD [facility] CPT-34113 Level 3 Est. Patient 10:06:54 FRUIT INSPECTOR Miranda Suresh APRN [facility] CPT-37810 Level 4 Est. Patient 13:50:18 FRUIT INSPECTOR Tu Landeros MD [facility] CPT-67875 Level 3 Est. Patient 10:30:04 CDT Tu Landeros MD [facility] CPT-52400 Level 4 Est. Patient 11:03:38 CDT Tu Landeros MD [facility] CPT-22697 Level 3 Est. Patient 10:20:44 CDT Fab Morales DO [facility] CPT-66242 Level 4 Est. Patient 14:38:57 CDT Tu Landeros MD [facility] CPT-14370 Level 4 Est. Patient 14:27:39 FRUIT INSPECTOR Tu Landeros MD [facility] CPT-32940 Level 4 Est. Patient 09:45:25 CDT Tu Landeros MD [facility] CPT-01100 Level 4 Est. Patient 09:05:20 FRUIT INSPECTOR Tu Landeros MD [facility] CPT-71445 Level 4 Est. Patient 14:09:06 CDT Tu Landeros MD [facility] CPT-97950 Level 3 Est. Patient 13:36:54 CDT Tu Landeros MD [facility] CPT-84317 Level 3 Est. Patient 08:59:14 CDT Tu Landeros MD [facility] CPT-95650 Level 3 Est. Patient 13:48:35 CDT Fab Morales DO [facility] CPT-20202 Level 4 Est. Patient 10:05:48 CDT Tu Landeros MD [facility] CPT-52606 Level 3 Est. Patient 13:38:42 CDT Marek BANKS [facility] CPT-20971 Level 5 Est. Patient 08:08:39 CDT Jerrica FRANCIS [facility] CPT-98800 Level 4 Est. Patient 14:23:38 CDT Tu Landeros MD [facility] CPT-22198 Level 3 Est. Patient 11:44:04 CDT Tu Landeros MD [facility] CPT-81235 Level 3 Est. Patient 11:03:20 FRUIT INSPECTOR Tu Landeros MD [facility] CPT-28129 Level 3 Est. Patient 11:03:14 FRUIT INSPECTOR Tu Landeros MD [facility] CPT-19260 Level 3 Est. Patient 12:42:49 CDT Tu Landeros MD [facility] CPT-01671 Level 3 Est. Patient 11:52:06 CDT Tu Landeros MD [facility] CPT-74127 Level 3 Est. Patient 13:58:11 CDT Tu Landeros MD [facility] CPT-15786 Level 3 Est. Patient 17:50:07 CDT Fab Morales DO [facility] CPT-53286 Level 3 Est. Patient 12:06:29 CDT Elvira Cervantes MD [facility] CPT-78023 Level 3 Est. Patient 15:50:32 CDT Tu Landeros MD [facility] CPT-38423 Level 4 Est. Patient 16:08:29 CDT Tu Landeros MD [facility] CPT-69974 Level 3 Est. Patient 16:04:19 CDT Tu Landeros MD [facility] CPT-29595 Level 3 Est. Patient 11:22:30 FRUIT INSPECTOR Tu Landeros MD [facility] CPT-02400 Level 4 Est. Patient 16:24:02 FRUIT INSPECTOR Tu Landeros MD [facility] CPT-20785 Level 3 Est. Patient 17:21:23 FRUIT INSPECTOR Tu Landeros MD [facility] Procedures Code Procedure Name Date Entry Date Standard Description CPT-22700 Shoulder, right, comp min 2V - XRAY USE ONLY 13:50:22 CDT CPT-G0009 Administration of Pneumococcal Vaccine 15:08:26 CDT CPT-53704 Prevnar 13 Intramuscular Suspension 15:08:26 CDT 10/08 CPT-G0439 [facility] Annual Wellness Exam 14:29:22 CDT CPT-78192 Venipuncture Draw Fee 13:15:35 CDT CPT-80572 Magnesium - LAB USE ONLY 11:14:20 FRUIT INSPECTOR CPT-22982 Lipid - LAB USE ONLY 11:14:20 FRUIT INSPECTOR CPT-90425 HGBA1C - LAB USE ONLY 11:14:20 FRUIT INSPECTOR CPT-72483 CMP - LAB USE ONLY 11:14:19 FRUIT INSPECTOR CPT-96051 CBC - LAB USE ONLY 11:14:19 FRUIT INSPECTOR CPT-97810 Venipuncture Draw Fee 11:14:18 FRUIT INSPECTOR CPT-87581 First Vx - Ix admin for Medicare patients 16:46:52 CDT CPT-49803 Fluzone Preservative Free Intramuscular Suspension 16:46 :51 CDT CPT-86294 CBC - LAB USE ONLY 17:14:46 CDT CPT-66869 HGBA1C - LAB USE ONLY 17:14:46 CDT CPT-03732 Venipuncture Draw Fee 17:14:46 CDT CPT-G0438 Initial Annual Wellness Exam 14:13:04 CDT CPT-92266 Breathing Tx 10:06:54 FRUIT INSPECTOR CPT-01093 Postop F/U Visit 10:02:45 CDT CPT-LR Lesion Removal 09:02:56 CDT CPT-JTINJ Asp/Joint Injection 15:51:27 FRUIT INSPECTOR CPT-OV Office Visit 15:52:02 FRUIT INSPECTOR CPT-OV Office Visit 15:45:11 CDT CPT-000 Give Zostavax 14:09:06 CDT CPT-15053 Administration single or combination vaccine inc oral 15 :19:04 CDT CPT-32946 Zoster Vaccine (Zostavax) 15:19:04 CDT CPT-17562 Administration single or combination vaccine inc oral 20 :51:03 CDT CPT-87194 Influenza split virus > age 3 20:51:03 CDT CPT-81443 No Charge Offi Visit 14:52:03 CDT CPT-OV Office Visit 14:57:43 CDT CPT-OV Office Visit 15:22:32 CDT CPT-69931 Administration single or combination vaccine inc oral 11 :33:15 CDT CPT-19466 Influenza split virus > age 3 11:33:15 CDT
--- OUTSIDE RECORDS SUMMARY | 2018-04-25 15:43 | XMS REPORT | Clinical Summary ---
Author Author Admin, SACHI Organization [employer] Address Unknown Phone Unavailable Allergies, Adverse Reactions, [...] Landeros MD Sinusitis - acute ICD-461.9 Inactive uT Landeros MD Leg pain, left ICD-729.5 Inactive Tu Landeros MD Medication List Medication Instructions Start Date Stop Date Generic Name NDC Status Provider Patient Instruction VENLAFAXINE HCL 37.5 MG TABS 1 po BID VENLAFAXINE HCL 83175468588 Active Tu Landeros MD Active GABAPENTIN 100 MG CAPS 1 po BID GABAPENTIN 85740019848 Active Tu Landeros MD Active REQUIP 2 MG TABS Take one tablet at bedtime prn ROPINIROLE HCL 34773673905 No Longer Active Tu Landeros MD Active VENTOLIN HFA 108 (90 BASE) MCG/ACT AERS 1-2 puffs every 4 hours if needed for cough/congestion ALBUTEROL SULFATE 90743863180 No Longer Active Ambika Aden APRN Active ZITHROMAX 250 MG TAB 2 po today, then 1 po q days 2-5 AZITHROMYCIN 30515209752 No Longer Active Miranda Suresh APRN Active METFORMIN HCL 1000 MG TABS 1 tablet by mouth twice daily METFORMIN HCL 78459828714 Active Tu Landeros MD Active FLONASE 50 MCG/ACT SUSP 1 spray each nostril twice daily until bottle empty FLUTICASONE PROPIONATE 03636321875 No Longer Active Tu Landeros MD Active COLACE 100 MG CAP 1 po BID PRN Constipation DOCUSATE SODIUM 44560270004 Active Tu Landeros MD Active SIMVASTATIN 40 MG TABS 0.5 tab daily at bedtime SIMVASTATIN 22330660223 Active Tu Landeros MD Active TRUERESULT BLOOD GLUCOSE W/DEVICE KIT test blood sugar twice daily dx 250.00 BLOOD GLUCOSE MONITORING SUPPL 40257741750 No Longer Active Tu Landeros MD Active TRUEDRAW LANCING DEVICE MISC Test twice a day dx 250.0 LANCET DEVICES 63162876611 No Longer Active Tu Landeros MD Active PREDNISONE 20 MG TAB 2 tablets once daily for 2 days, then 1 tablet once daily for 2 days PREDNISONE 13335380430 No Longer Active Tu Landeros MD Active DICLOFENAC SODIUM 50 MG TBEC 1 tablet by mouth three times a day as needed DICLOFENAC SODIUM 38993622455 No Longer Active Fab Morales DO Active TRUEDRAW LANCING DEVICE MISC test blood sugar twice daily dx: 250.00 LANCET DEVICES 67802709001 Active Tu Landeros MD Active TRUETEST TEST INVITR STRP test blood sugar twice daily. DX 250.0 GLUCOSE BLOOD 19218663813 Active Tu Landeros MD Active EMBRACE BLOOD GLUCOSE TEST STRP test blood sugar twice daily DX 250.0 2014 GLUCOSE BLOOD 03504547772 No Longer Active Tu Landeros MD Active TRUETEST TEST STRP test blood sugar three times daily dx: 250.00 GLUCOSE BLOOD 40699514606 No Longer Active Suzebianca VOGEL Active TRUERESULT BLOOD GLUCOSE W/DEVICE KIT use to test blood sugar tid dx: 250.00 BLOOD GLUCOSE MONITORING SUPPL 94917492568 No Longer Active Suze Corey RMA Active ALIGN 4 MG CAPS 1 tid PROBIOTIC PRODUCT 18064250901 No Longer Active Shaun Sy MD Active CIPRO 500 MG TABS 1 bid x 14 days start 09-28-13 CIPROFLOXACIN HCL 82610554927 No Longer Active Shaun Sy MD Active TRAMADOL HCL 50 MG TABS 1-2 tablets every 6 hours as needed for pain TRAMADOL HCL 93369575321 Active Tu Landeros MD Active HYDROCODONE-ACETAMINOPHEN 5-325 MG TABS 1 tab by mouth every 6 hours as needed for pain HYDROCODONE-ACETAMINOPHEN 87116686101 No Longer Active Tu Landeros MD Active OMEPRAZOLE 20 MG CPDR 1 po q a.m. OMEPRAZOLE 40840173007 Active Tu Landeros MD Active GABAPENTIN 100 MG CAPS 1 po bid GABAPENTIN 55556885331 No Longer Active Tu Landeros MD Active B-12 100 MCG TABS Take one by mouth daily CYANOCOBALAMIN 17719196395 No Longer Active Tu Landeros MD Active BACTRIM DS 800-160 MG TABS 1 bid x 14 day start 09-28-13 SULFAMETHOXAZOLE-TRIMETHOPRIM 46757594293 No Longer Active Tu Landeros MD Active CARVEDILOL 12.5 MG TABS 1 po BID CARVEDILOL 86002756313 Active Tu Landeros MD Active SUPER B COMPLEX/VITAMIN C TABS 1 qd B COMPLEX-C 66150663480 Active JASPREET Perez Active TRILIPIX 135 MG CPDR 1 q hs CHOLINE FENOFIBRATE 91188558657 Active Tu Landeros MD Active FENOFIBRATE 145 MG TABS 1 po qd FENOFIBRATE 09063609402 No Longer Active JASPREET Perez Active OMEPRAZOLE 20 MG TBEC 1 PO 30 MIN BEFORE 1ST MEAL OMEPRAZOLE 71901263024 No Longer Active JASPREET Perez Active SIMVASTATIN 40 MG TABS Take one by mouth daily SIMVASTATIN 17157695408 No Longer Active JASPREET Perez Active VENLAFAXINE HCL 75 MG TABS 1 po BID VENLAFAXINE HCL 97414698982 No Longer Active JASPREET Perez Active CIPRO 500 MG TAB 1 tablet by mouth twice daily CIPROFLOXACIN HCL 68578768536 No Longer Active Tu Landeros MD Active VENLAFAXINE HCL 37.5 MG TABS 1 po BID VENLAFAXINE HCL 69761064040 No Longer Active Suze Nicole RMA Active LAMISIL 250 MG TAB 1 po qd TERBINAFINE HCL 24423997221 No Longer Active Tu Landeros MD Active LORTAB 5 5-500 MG TABS 1/2 to 1 tablet by mouth every 4 hours as needed for pain HYDROCODONE-ACETAMINOPHEN 06173790545 No Longer Active Tu Landeros MD Active ENALAPRIL MALEATE 20 MG TABS 1.5 po qd ENALAPRIL MALEATE 41104808071 Active Tu Landeros MD Active HYDROCODONE-ACETAMINOPHEN 5-500 MG TABS take one po Q 4-6 hours prn HYDROCODONE-ACETAMINOPHEN 34928764103 No Longer Active Tu Landeros MD Active BACTRIM DS 800-160 MG TABS 1 po BID x 7 days SULFAMETHOXAZOLE-TRIMETHOPRIM 52857523253 No Longer Active Tu Landeros MD Active VENLAFAXINE HCL 75 MG TABS 1 po BID VENLAFAXINE HCL 99596726359 No Longer Active Elvira Cervantes MD PhD Active TRAMADOL HCL 50 MG TABS 1 tablets every 6 hours as needed for pain TRAMADOL HCL 49620339575 No Longer Active Tu Landeros MD Active ACCU-CHEK FASTCLIX LANCETS MISC Use to check bloodsugar three times daily as needed LANCETS 12916149896 No Longer Active Tu Landeros MD Active ACCU-CHEK KEYONA PLUS STRP Use for testing bloodsugars three times daily as needed GLUCOSE BLOOD 97225001169 No Longer Active Tu Landeros MD Active ACCU-CHEK KEYONA PLUS W/DEVICE KIT Use for testing bloodsugars three times daily as needed BLOOD GLUCOSE MONITORING SUPPL 22275246296 No Longer Active Tu Landeros MD Active SPIRONOLACTONE 25 MG TAB 0.5 tablet by mouth daily SPIRONOLACTONE 08744225093 No Longer Active Tu Landeros MD Active ALPRAZOLAM 0.5 MG TABS 1 tab every 6hrs as needed ALPRAZOLAM 48414554472 No Longer Active Tu Landeros MD Active AUGMENTIN 875-125 MG TAB 1 tab by mouth twice daily with food AMOXICILLIN-POT CLAVULANATE 64193678902 No Longer Active Tu Landeros MD Active PREDNISONE 20 MG TAB 2 tabs daily for 3 days, 1 tab daily for 3 days, 1/2 tab daily for 2 days PREDNISONE 33246322180 No Longer Active Tu Landeros MD Active XANAX 0.5 MG TABS 1 tablet every 6 hrs prn ALPRAZOLAM 55749563466 No Longer Active Tu Landeros MD Active PREDNISONE 20 MG TAB 2 tabs daily for 3 days, 1 tab daily for 3 days, 1/2 tab daily for 2 days PREDNISONE 18269024573 No Longer Active Tu Landeros MD Active TRIAMCINOLONE ACETONIDE 0.1 % OINT Apply to affected areas TID for up to 2 weeks TRIAMCINOLONE ACETONIDE 06699877629 No Longer Active Tu Landeros MD Active LORTAB 5 5-500 MG TABS 1/2 to 1 tablet by mouth every 4 hours as needed for pain HYDROCODONE-ACETAMINOPHEN 81325106793 No Longer Active Tu Landeros MD Active MULTIVITAMINS TABS Take one by mouth daily MULTIPLE VITAMIN 53695281636 No Longer Active Tu Landeros MD Active MELATONIN 5 MG TABS Take one by mouth daily MELATONIN 04809647362 No Longer Active Tu Landeros MD Active SOMA 350 MG TAB 1 po q 6 hours prn spasm CARISOPRODOL 44112552431 No Longer Active Tu Landeros MD Active MECLIZINE HCL 25 MG CHEW TAB 1 four times a day as needed for dizziness 08/05 MECLIZINE HCL 89822157482 No Longer Active Fab Morales DO Active ANGEL BREEZE 2 TEST DISK test tid prn GLUCOSE BLOOD 06424702916 No Longer Active Negra Scott RN Active REGLAN 10 MG TAB 1 po TID PRN Nausea METOCLOPRAMIDE HCL 83900398288 No Longer Active Tu Landeros MD Active METFORMIN HCL 500 MG TABS 1 PO BID METFORMIN HCL 95974840413 No Longer Active Tu Landeros MD Active AMBIEN 10 MG TAB 1 tab by mouth at bedtime as needed for sleep ZOLPIDEM TARTRATE 00309921837 No Longer Active Tu Landeros MD Active FLUOXETINE HCL 40 MG CAPS 1 po q day FLUOXETINE HCL 49829457726 No Longer Active Mayra Muskego Active FISH OIL 1000 MG CAPS Take one by mouth daily OMEGA-3 FATTY ACIDS 61244740456 Active Tu Landeros MD Active GLUCOSAMINE 500 MG TABS Take 2 tab po qd GLUCOSAMINE 55506159342 Active Tu Landeros MD Active TRILIPIX 135 MG CPDR 1 po qd CHOLINE FENOFIBRATE 42912684407 No Longer Active Tu Landeros MD Active ASPIRIN 81 MG CHEW TAB 1 tablet by mouth daily ASPIRIN 48956297097 Active Tu Landeros MD Active FUROSEMIDE 40 MG TAB 1 tablet by mouth daily FUROSEMIDE 70292860882 Active Tu Landeros MD Active KLOR-CON 10 10 MEQ CR-TABS TAKE 2 TABS DAILY POTASSIUM CHLORIDE 86219055213 Active Tu Landeros MD Active AMBIEN 10 MG TAB 1 tab by mouth at bedtime as needed for sleep AMBIEN 10 MG TAB 026044 ZOLPIDEM TARTRATE Inactive METFORMIN HCL 500 MG TABS 1 PO BID METFORMIN HCL 500 MG TABS 048217 METFORMIN HCL Inactive REGLAN 10 MG TAB 1 po TID PRN Nausea REGLAN 10 MG TAB 169503 METOCLOPRAMIDE HCL Inactive MECLIZINE HCL 25 MG CHEW TAB 1 four times a day as needed for dizziness 08/05 MECLIZINE HCL 25 MG CHEW TAB 003240 MECLIZINE HCL Inactive SOMA 350 MG TAB 1 po q 6 hours prn spasm SOMA 350 MG TAB 654832 CARISOPRODOL Inactive MELATONIN 5 MG TABS Take one by mouth daily MELATONIN 5 MG TABS 103654 MELATONIN Inactive MULTIVITAMINS TABS Take one by mouth daily MULTIVITAMINS TABS MULTIPLE VITAMIN Inactive LORTAB 5 5-500 MG TABS 1/2 to 1 tablet by mouth every 4 hours as needed for pain LORTAB 5 5-500 MG TABS HYDROCODONE- ACETAMINOPHEN Inactive XANAX 0.5 MG TABS 1 tablet every 6 hrs prn XANAX 0.5 MG TABS 308233 ALPRAZOLAM Inactive AUGMENTIN 875-125 MG TAB 1 tab by mouth twice daily with food AUGMENTIN 875-125 MG TAB 419971 AMOXICILLIN-POT CLAVULANATE Inactive ALPRAZOLAM 0.5 MG TABS 1 tab every 6hrs as needed ALPRAZOLAM 0.5 MG TABS 314388 ALPRAZOLAM Inactive SPIRONOLACTONE 25 MG TAB 0.5 tablet by mouth daily SPIRONOLACTONE 25 MG TAB 054064 SPIRONOLACTONE Inactive ACCU-CHEK KEYONA PLUS W/DEVICE KIT Use for testing bloodsugars three times daily as needed ACCU-CHEK KEYONA PLUS W/DEVICE KIT BLOOD GLUCOSE MONITORING SUPPL Inactive ACCU-CHEK KEYONA PLUS STRP Use for testing bloodsugars three times daily as needed ACCU-CHEK KEYONA PLUS STRP GLUCOSE BLOOD Inactive ACCU-CHEK FASTCLIX LANCETS MISC Use to check bloodsugar three times daily as needed ACCU-CHEK FASTCLIX LANCETS MISC 08756260753 [facility] TRAMADOL HCL 50 MG TABS 1 tablets every 6 hours as needed for pain TRAMADOL HCL 50 MG TABS 987122 TRAMADOL HCL Inactive VENLAFAXINE HCL 75 MG TABS 1 po BID VENLAFAXINE HCL 75 MG TABS 373342 VENLAFAXINE HCL Inactive HYDROCODONE-ACETAMINOPHEN 5-500 MG TABS take one po Q 4-6 hours prn HYDROCODONE-ACETAMINOPHEN 5-500 MG TABS HYDROCODONE- ACETAMINOPHEN Inactive LORTAB 5 5-500 MG TABS 1/2 to 1 tablet by mouth every 4 hours as needed for pain LORTAB 5 5-500 MG TABS HYDROCODONE- ACETAMINOPHEN Inactive LAMISIL 250 MG TAB 1 po qd LAMISIL 250 MG TAB 056083 TERBINAFINE HCL Inactive VENLAFAXINE HCL 37.5 MG TABS 1 po BID VENLAFAXINE HCL 37.5 MG TABS 097422 VENLAFAXINE HCL Inactive CIPRO 500 MG TAB 1 tablet by mouth twice daily CIPRO 500 MG TAB 210357 CIPROFLOXACIN HCL Inactive VENLAFAXINE HCL 75 MG TABS 1 po BID VENLAFAXINE HCL 75 MG TABS 482032 VENLAFAXINE HCL Inactive SIMVASTATIN 40 MG TABS Take one by mouth daily SIMVASTATIN 40 MG TABS 354357 SIMVASTATIN Inactive OMEPRAZOLE 20 MG TBEC 1 PO 30 MIN BEFORE 1ST MEAL OMEPRAZOLE 20 MG TBEC 129728 OMEPRAZOLE Inactive FENOFIBRATE 145 MG TABS 1 po qd FENOFIBRATE 145 MG TABS 020351 FENOFIBRATE Inactive BACTRIM DS 800-160 MG TABS 1 bid x 14 day start 09-28-13 BACTRIM DS 800-160 MG TABS 279828 SULFAMETHOXAZOLE-TRIMETHOPRIM Inactive B-12 100 MCG TABS Take one by mouth daily B-12 100 MCG TABS CYANOCOBALAMIN Inactive GABAPENTIN 100 MG CAPS 1 po bid GABAPENTIN 100 MG CAPS 919877 GABAPENTIN Inactive HYDROCODONE-ACETAMINOPHEN 5-325 MG TABS 1 tab by mouth every 6 hours as needed for pain HYDROCODONE-ACETAMINOPHEN 5-325 MG TABS 123627 HYDROCODONE-ACETAMINOPHEN Inactive CIPRO 500 MG TABS 1 bid x 14 days start 814 CIPRO 500 MG TABS 978737 CIPROFLOXACIN HCL Inactive ALIGN 4 MG CAPS [...] as needed DICLOFENAC SODIUM 50 MG TBEC 075117 DICLOFENAC SODIUM Inactive PREDNISONE 20 MG TAB 2 tablets once daily for 2 days, then 1 tablet once daily for 2 days PREDNISONE 20 MG TAB 797758 PREDNISONE Inactive TRUEDRAW LANCING DEVICE MISC Test [...] at bedtime prn REQUIP 2 MG TABS 127019 ROPINIROLE HCL Inactive TRIAMCINOLONE ACETONIDE 0.1 % OINT Apply to affected areas TID for up to 2 weeks TRIAMCINOLONE ACETONIDE 0.1 % OINT 9280742 TRIAMCINOLONE ACETONIDE Inactive PREDNISONE 20 MG TAB 2 tabs daily for 3 days, 1 tab daily for 3 days, 1/2 tab daily for 2 days PREDNISONE 20 MG TAB 523070 PREDNISONE Inactive PREDNISONE 20 MG TAB 2 tabs daily for 3 days, 1 tab daily for 3 days, 1/2 tab daily for 2 days PREDNISONE 20 MG TAB 414125 PREDNISONE Inactive BACTRIM DS 800-160 MG TABS 1 po BID x 7 days BACTRIM DS 800-160 MG TABS 852664 SULFAMETHOXAZOLE-TRIMETHOPRIM Inactive ZITHROMAX 250 MG TAB 2 po today, then 1 po q days 2-5 ZITHROMAX 250 MG TAB 0194792 AZITHROMYCIN Inactive Advance Directives Directive Description Start Date DISCUSSED WITH PATIENT -- NO DECISION MADE Immunizations Vaccine Administration Date Value Standard Description Seasonal influenza vaccine, injectable, containing preservative, for > 3 years old (Afluria, FluLaval, Fluzone, Fluvirin, Fluarix, Agriflu(>=18 yo)) Fluzone (>3 yrs.) [[id number]] Influenza, seasonal, injectable influenza immunization (Flu Vax) has been administered 02/22/2012 influenza virus vaccine, unspecified formulation Seasonal influenza vaccine, injectable, containing preservative, for > 3 years old (Afluria, FluLaval, Fluzone, Fluvirin, Fluarix, Agriflu(>=18 yo)) Fluzone (>3 yrs.) [[id number]] Influenza, seasonal, injectable Vital Signs Date Name [...] 7.4 % 4.3-6.0 sodium, serum 140 mmol/L 975-746 4968/09/07 potassium, serum 4.3 mmol/L 3.5-5.2 chloride, serum 104 mmol/L 98-107 carbon dioxide, venous blood 27.7 mmol/L 21.0-32.0 blood glucose 156 mg/dL 65-110 calcium, serum 9.3 mg/dL 8.5-10.1 urea nitrogen, blood 23 mg/dL 7-18 creatinine, serum 1.21 mg/dL 0.55-1.30 Lab Report: Lipid Panel, Comp. Metabolic Panel - Chemistry cholesterol, serum 124 mg/dL 285-287 7016/01/12 triglyceride, serum, fasting 135 mg/dL 30-200 HDL cholesterol, serum 41 mg/dL 32-96 LDL cholesterol, serum 56 mg/dL 0-130 sodium, serum 140 mmol/L 079-513 0117/01/12 carbon dioxide, venous blood 27.7 mmol/L 21.0-32.0 potassium, serum 4.5 mmol/L 3.5-5.2 chloride, serum 104 mmol/L 98-107 blood glucose 139 mg/dL 65-110 urea nitrogen, blood 16 mg/dL 7-18 alanine aminotransferase (SGPT), serum 32 U/L 12-78 aspartate aminotransferase (SGOT), serum 25 U/L 15-37 calcium, serum 9.1 mg/dL 8.5-10.1 bilirubin, serum, total 0.50 mg/dL 0.00-1.00 Encounters Code Encounter Date Provider Facility CPT-08123 Level 4 Est. Patient 14:40:19 CDT Tu Landeros MD [facility] CPT-57557 Level 4 Est. Patient 14:06:04 RIB CHOPPER Tu Landeros MD [facility] CPT-12054 Level 3 Est. Patient 14:05:18 RIB CHOPPER Tu Landeros MD [facility] CPT-23742 Level 3 Est. Patient 10:06:54 RIB CHOPPER Miranda Suresh APRN [facility] CPT-01383 Level 4 Est. Patient 13:50:18 RIB CHOPPER Tu Landeros MD [facility] CPT-96716 Level 3 Est. Patient 10:30:04 CDT Tu Landeros MD [facility] CPT-20723 Level 4 Est. Patient 11:03:38 CDT Tu Landeros MD [facility] CPT-47572 Level 3 Est. Patient 10:20:44 CDT Fab Morales DO [facility] CPT-14150 Level 4 Est. Patient 14:38:57 CDT Tu Landeros MD [facility] CPT-93377 Level 4 Est. Patient 14:27:39 RIB CHOPPER Tu Landeros MD [facility] CPT-52853 Level 4 Est. Patient 09:45:25 CDT Tu Landeros MD [facility] CPT-29529 Level 4 Est. Patient 09:05:20 RIB CHOPPER Tu Landeros MD [facility] CPT-30039 Level 4 Est. Patient 14:09:06 CDT Tu Landeros MD [facility] CPT-79332 Level 3 Est. Patient 13:36:54 CDT Tu Landeros MD [facility] CPT-34908 Level 3 Est. Patient 08:59:14 CDT Tu Landeros MD [facility] CPT-53189 Level 3 Est. Patient 13:48:35 CDT Fab Morales DO [facility] CPT-44380 Level 4 Est. Patient 10:05:48 CDT Tu Landeros MD [facility] CPT-23778 Level 3 Est. Patient 13:38:42 CDT Marek BANKS [facility] CPT-18939 Level 5 Est. Patient 08:08:39 CDT Jerrica FRANCIS [facility] CPT-65647 Level 4 Est. Patient 14:23:38 CDT Tu Landeros MD [facility] CPT-38380 Level 3 Est. Patient 11:44:04 CDT Tu Landeros MD [facility] CPT-45401 Level 3 Est. Patient 11:03:20 RIB CHOPPER Tu Landeros MD [facility] CPT-01920 Level 3 Est. Patient 11:03:14 RIB CHOPPER Tu Landeros MD [facility] CPT-41748 Level 3 Est. Patient 12:42:49 CDT Tu Landeros MD [facility] CPT-28295 Level 3 Est. Patient 11:52:06 CDT Tu Landeros MD [facility] CPT-52132 Level 3 Est. Patient 13:58:11 CDT Tu Landeros MD [facility] CPT-92984 Level 3 Est. Patient 17:50:07 CDT Fab Morales DO [facility] CPT-47574 Level 3 Est. Patient 12:06:29 CDT Elvira Cervantes MD PhD [facility] CPT-14606 Level 3 Est. Patient 15:50:32 CDT Tu Landeros MD [facility] CPT-79603 Level 4 Est. Patient 16:08:29 CDT Tu Landeros MD [facility] CPT-01153 Level 3 Est. Patient 16:04:19 CDT Tu Landeros MD [facility] CPT-39566 Level 3 Est. Patient 11:22:30 RIB CHOPPER Tu Landeros MD [facility] CPT-13302 Level 4 Est. Patient 16:24:02 RIB CHOPPER Tu Landeros MD [facility] CPT-26748 Level 3 Est. Patient 17:21:23 RIB CHOPPER Tu Landeros MD [facility] Procedures Code Procedure Name Date Entry Date Standard Description CPT-61346 First Vx - Ix admin for Medicare patients 16:46:52 CDT CPT-40113 Fluzone Preservative Free Intramuscular Suspension 16:46 :51 CDT CPT-30693 CBC - LAB USE ONLY 17:14:46 CDT CPT-07171 HGBA1C - LAB USE ONLY 17:14:46 CDT CPT-88273 Venipuncture Draw Fee 17:14:46 CDT CPT-G0438 Initial Annual Wellness Exam 14:13:04 CDT CPT-40858 Breathing Tx 10:06:54 RIB CHOPPER CPT-36500 Postop F/U Visit 10:02:45 CDT CPT-LR Lesion Removal 09:02:56 CDT CPT-JTINJ Asp/Joint Injection 15:51:27 RIB CHOPPER CPT-OV Office Visit 15:52:02 RIB CHOPPER CPT-OV Office Visit 15:45:11 CDT CPT-000 Give Zostavax 14:09:06 CDT CPT-84990 Administration single or combination vaccine inc oral 15 :19:04 CDT CPT-22331 Zoster Vaccine (Zostavax) 15:19:04 CDT CPT-76816 Administration single or combination vaccine inc oral 20 :51:03 CDT CPT-42106 Influenza split virus > age 3 20:51:03 CDT CPT-89055 No Charge Offi Visit 14:52:03 CDT CPT-OV Office Visit 14:57:43 CDT CPT-OV Office Visit 15:22:32 CDT CPT-26799 Administration single or combination vaccine inc oral 11 :33:15 CDT CPT-09929 Influenza split virus > age 3 11:33:15 CDT
--- OUTSIDE RECORDS SUMMARY | 2018-04-25 15:45 | XMS REPORT | Clinical Summary ---
Author Author Admin, SACHI Organization [employer] Address Unknown Phone Unavailable Allergies, Adverse [...] MD FATIGUE ICD-780.79 Tessa Landeros MD 2012 LEG CRAMPS, NOCTURNAL ICD-729.82 Inactive Tu Landeros MD SHOULDER PAIN, LEFT ICD-719.41 Tessa Landeros MD KNEE PAIN ICD-719.46 Inactive Tu Landeros MD ARTHRITIS ICD-716.90 Tessa Landeros MD CARPAL TUNNEL SYNDROME ICD-354.0 [...] MG TABS 1 po BID VENLAFAXINE HCL 44077058818 Active Tu Landeros MD Active GABAPENTIN 100 MG CAPS 1 po BID GABAPENTIN 37940782791 Active José Luis Becerra MD Active REQUIP 2 MG TABS Take one tablet at bedtime prn ROPINIROLE HCL 10461130260 No Longer Active Tu Landeros MD Active VENTOLIN HFA 108 (90 BASE) MCG/ACT AERS 1-2 puffs every 4 hours if needed for cough/congestion ALBUTEROL SULFATE 82353987280 No Longer Active Ambika Aden APRN Active ZITHROMAX 250 MG TAB 2 po today, then 1 po q days 2-5 AZITHROMYCIN 83715099510 No Longer Active Miranda Suresh APRN Active METFORMIN HCL 1000 MG TABS 1 tablet by mouth twice daily METFORMIN HCL 44405676410 Active Tu Landeros MD Active FLONASE 50 MCG/ACT SUSP 1 spray each nostril twice daily until bottle empty FLUTICASONE PROPIONATE 63696617934 No Longer Active Tu Landeros MD Active COLACE 100 MG CAP 1 po BID PRN Constipation DOCUSATE SODIUM 20995940466 Active Tu Landeros MD Active SIMVASTATIN 40 MG TABS 0.5 tab daily at bedtime SIMVASTATIN 36822730779 Active Tu Landeros MD Active TRUERESULT BLOOD GLUCOSE W/DEVICE KIT test blood sugar twice daily dx 250.00 BLOOD GLUCOSE MONITORING SUPPL 84032523830 No Longer Active Tu Landeros MD Active TRUEDRAW LANCING DEVICE MISC Test twice a day dx 250.0 LANCET DEVICES 67040176183 No Longer Active Tu Landeros MD Active PREDNISONE 20 MG TAB 2 tablets once daily for 2 days, then 1 tablet once daily for 2 days PREDNISONE 92372319881 No Longer Active Tu Landeros MD Active DICLOFENAC SODIUM 50 MG TBEC 1 tablet by mouth three times a day as needed DICLOFENAC SODIUM 16784933931 No Longer Active Fab Morales DO Active TRUEDRAW LANCING DEVICE MISC test blood sugar twice daily dx: 250.00 LANCET DEVICES 58856102668 Active Tu Landeros MD Active TRUETEST TEST INVITR STRP test blood sugar twice daily. DX 250.0 GLUCOSE BLOOD 49523544580 Active Tu Landeros MD Active EMBRACE BLOOD GLUCOSE TEST STRP test blood sugar twice daily DX 250.0 2014 GLUCOSE BLOOD 84536733156 No Longer Active Tu Landeros MD Active TRUETEST TEST STRP test blood sugar three times daily dx: 250.00 GLUCOSE BLOOD 65689007556 No Longer Active Suze Corey VOGEL Active TRUERESULT BLOOD GLUCOSE W/DEVICE KIT use to test blood sugar tid dx: 250.00 BLOOD GLUCOSE MONITORING SUPPL 72297501791 No Longer Active Suze Corey RMA Active ALIGN 4 MG CAPS 1 tid PROBIOTIC PRODUCT 22749373357 No Longer Active Shaun Sy MD Active CIPRO 500 MG TABS 1 bid x 14 days start 09-28-13 CIPROFLOXACIN HCL 93405823094 No Longer Active Shaun Sy MD Active TRAMADOL HCL 50 MG TABS 1-2 tablets every 6 hours as needed for pain TRAMADOL HCL 33317497886 Active Tu Landeros MD Active HYDROCODONE-ACETAMINOPHEN 5-325 MG TABS 1 tab by mouth every 6 hours as needed for pain HYDROCODONE-ACETAMINOPHEN 18397224978 No Longer Active Tu Landeros MD Active OMEPRAZOLE 20 MG CPDR 1 po q a.m. OMEPRAZOLE 23400423990 Active Tu Landeros MD Active GABAPENTIN 100 MG CAPS 1 po bid GABAPENTIN 83807468040 No Longer Active Tu Landeros MD Active B-12 100 MCG TABS Take one by mouth daily CYANOCOBALAMIN 66962577286 No Longer Active Tu Landeros MD Active BACTRIM DS 800-160 MG TABS 1 bid x 14 day start 09-28-13 SULFAMETHOXAZOLE-TRIMETHOPRIM 75347734329 No Longer Active Tu Landeros MD Active CARVEDILOL 12.5 MG TABS 1 po BID CARVEDILOL 38038408032 Active Tu Landeros MD Active SUPER B COMPLEX/VITAMIN C TABS 1 qd B COMPLEX-C 09928437998 Active JASPREET Perez Active TRILIPIX 135 MG CPDR 1 q hs CHOLINE FENOFIBRATE 87095675949 Active Tu Landeros MD Active FENOFIBRATE 145 MG TABS 1 po qd FENOFIBRATE 55417859448 No Longer Active JASPREET Perez Active OMEPRAZOLE 20 MG TBEC 1 PO 30 MIN BEFORE 1ST MEAL OMEPRAZOLE 88615437069 No Longer Active JASPREET Perez Active SIMVASTATIN 40 MG TABS Take one by mouth daily SIMVASTATIN 86910019586 No Longer Active JASPREET Perez Active VENLAFAXINE HCL 75 MG TABS 1 po BID VENLAFAXINE HCL 77649223528 No Longer Active Gustavo Norma, RMA Active CIPRO 500 MG TAB 1 tablet by mouth twice daily CIPROFLOXACIN HCL 08959030909 No Longer Active Tu Landeros MD Active VENLAFAXINE HCL 37.5 MG TABS 1 po BID VENLAFAXINE HCL 42572865777 No Longer Active Suze Nicole RMA Active LAMISIL 250 MG TAB 1 po qd TERBINAFINE HCL 92137944245 No Longer Active Tu Landeros MD Active LORTAB 5 5-500 MG TABS 1/2 to 1 tablet by mouth every 4 hours as needed for pain HYDROCODONE-ACETAMINOPHEN 34891030018 No Longer Active Tu Landeros MD Active ENALAPRIL MALEATE 20 MG TABS 1.5 po qd ENALAPRIL MALEATE 46305952581 Active Tu Landeros MD Active HYDROCODONE-ACETAMINOPHEN 5-500 MG TABS take one po Q 4-6 hours prn HYDROCODONE-ACETAMINOPHEN 82631010957 No Longer Active Tu Landeros MD Active BACTRIM DS 800-160 MG TABS 1 po BID x 7 days SULFAMETHOXAZOLE-TRIMETHOPRIM 19651775038 No Longer Active Tu Landeros MD Active VENLAFAXINE HCL 75 MG TABS 1 po BID VENLAFAXINE HCL 56131645495 No Longer Active Elvira Cervantes MD PhD Active TRAMADOL HCL 50 MG TABS 1 tablets every 6 hours as needed for pain TRAMADOL HCL 92871327243 No Longer Active Tu Landeros MD Active ACCU-CHEK FASTCLIX LANCETS MISC Use to check bloodsugar three times daily as needed LANCETS 32208777294 No Longer Active Tu Landeros MD Active ACCU-CHEK KEYONA PLUS STRP Use for testing bloodsugars three times daily as needed GLUCOSE BLOOD 46690678913 No Longer Active Tu Landeros MD Active ACCU-CHEK KEYONA PLUS W/DEVICE KIT Use for testing bloodsugars three times daily as needed BLOOD GLUCOSE MONITORING SUPPL 44745977289 No Longer Active Tu Landeros MD Active SPIRONOLACTONE 25 MG TAB 0.5 tablet by mouth daily SPIRONOLACTONE 05769126855 No Longer Active Tu Landeros MD Active ALPRAZOLAM 0.5 MG TABS 1 tab every 6hrs as needed ALPRAZOLAM 84201152183 No Longer Active Tu Landeros MD Active AUGMENTIN 875-125 MG TAB 1 tab by mouth twice daily with food AMOXICILLIN-POT CLAVULANATE 77447133474 No Longer Active Tu Landeros MD Active PREDNISONE 20 MG TAB 2 tabs daily for 3 days, 1 tab daily for 3 days, 1/2 tab daily for 2 days PREDNISONE 44292257332 No Longer Active Tu Landeros MD Active XANAX 0.5 MG TABS 1 tablet every 6 hrs prn ALPRAZOLAM 69959617863 No Longer Active Tu Landeros MD Active PREDNISONE 20 MG TAB 2 tabs daily for 3 days, 1 tab daily for 3 days, 1/2 tab daily for 2 days PREDNISONE 48739975618 No Longer Active Tu Landeros MD Active TRIAMCINOLONE ACETONIDE 0.1 % OINT Apply to affected areas TID for up to 2 weeks TRIAMCINOLONE ACETONIDE 73662959640 No Longer Active Tu Landeros MD Active LORTAB 5 5-500 MG TABS 1/2 to 1 tablet by mouth every 4 hours as needed for pain HYDROCODONE-ACETAMINOPHEN 08492550612 No Longer Active Tu Landeros MD Active MULTIVITAMINS TABS Take one by mouth daily MULTIPLE VITAMIN 77657421536 No Longer Active Tu Landeros MD Active MELATONIN 5 MG TABS Take one by mouth daily MELATONIN 87985122374 No Longer Active Tu Landeros MD Active SOMA 350 MG TAB 1 po q 6 hours prn spasm CARISOPRODOL 75740003226 No Longer Active Tu Landeros MD Active MECLIZINE HCL 25 MG CHEW TAB 1 four times a day as needed for dizziness 08/05 MECLIZINE HCL 40883732055 No Longer Active Fab Morales DO Active ANGEL BREEZE 2 TEST DISK test tid prn GLUCOSE BLOOD 09760352540 No Longer Active Negra Scott RN Active REGLAN 10 MG TAB 1 po TID PRN Nausea METOCLOPRAMIDE HCL 55562583154 No Longer Active Tu Landeros MD Active METFORMIN HCL 500 MG TABS 1 PO BID METFORMIN HCL 30055770850 No Longer Active Tu Landeros MD Active AMBIEN 10 MG TAB 1 tab by mouth at bedtime as needed for sleep ZOLPIDEM TARTRATE 82271390515 No Longer Active Tu Landeros MD Active FLUOXETINE HCL 40 MG CAPS 1 po q day FLUOXETINE HCL 22839962111 No Longer Active Mayrayolanda Sanchezr Active FISH OIL 1000 MG CAPS Take one by mouth daily OMEGA-3 FATTY ACIDS 12939868947 Active Tu Landeros MD Active GLUCOSAMINE 500 MG TABS Take 2 tab po qd GLUCOSAMINE 91330921733 Active Tu Landeros MD Active TRILIPIX 135 MG CPDR 1 po qd CHOLINE FENOFIBRATE 00702319538 No Longer Active Tu Landeros MD Active ASPIRIN 81 MG CHEW TAB 1 tablet by mouth daily ASPIRIN 81638731266 Active Tu Landeros MD Active FUROSEMIDE 40 MG TAB 1 tablet by mouth daily FUROSEMIDE 91312411248 Active Tu Landeros MD Active KLOR-CON 10 10 MEQ CR-TABS TAKE 2 TABS DAILY POTASSIUM CHLORIDE 74177845972 Active Tu Landeros MD Active ALPRAZOLAM 0.5 MG TABS 1 tab every 6hrs as needed ALPRAZOLAM 0.5 MG TABS 722792 ALPRAZOLAM Inactive AMBIEN 10 MG TAB 1 tab by mouth at bedtime as needed for sleep AMBIEN 10 MG TAB 869917 ZOLPIDEM TARTRATE Inactive BACTRIM DS 800-160 MG TABS 1 bid x 14 day start 09-28-13 BACTRIM DS 800-160 MG TABS 19820726 SULFAMETHOXAZOLE-TRIMETHOPRIM Inactive BACTRIM DS 800-160 MG TABS 1 po BID x 7 days BACTRIM DS 800-160 MG TABS 645430 SULFAMETHOXAZOLE-TRIMETHOPRIM Inactive CIPRO 500 MG TABS 1 bid x 14 days start 09-28-13 CIPRO 500 MG TABS 858712 CIPROFLOXACIN HCL Inactive CIPRO 500 MG TAB 1 tablet by mouth twice daily CIPRO 500 MG TAB 722643 CIPROFLOXACIN HCL Inactive MECLIZINE HCL 25 MG CHEW TAB 1 four times a day as needed for dizziness 08/05 MECLIZINE HCL 25 MG CHEW TAB 003855 MECLIZINE HCL Inactive MULTIVITAMINS TABS Take one by mouth daily MULTIVITAMINS TABS MULTIPLE VITAMIN Inactive PREDNISONE 20 MG TAB 2 tablets once daily for 2 days, then 1 tablet once daily for 2 days PREDNISONE 20 MG TAB 959308 PREDNISONE Inactive PREDNISONE 20 MG TAB 2 tabs daily for 3 days, 1 tab daily for 3 days, 1/2 tab daily for 2 days PREDNISONE 20 MG TAB 305820 PREDNISONE Inactive PREDNISONE 20 MG TAB 2 tabs daily for 3 days, 1 tab daily for 3 days, 1/2 tab daily for 2 days PREDNISONE 20 MG TAB 774162 PREDNISONE Inactive REGLAN 10 MG TAB 1 po TID PRN Nausea REGLAN 10 MG TAB 454942 METOCLOPRAMIDE HCL Inactive SOMA 350 MG TAB 1 po q 6 hours prn spasm SOMA 350 MG TAB 148409 CARISOPRODOL Inactive SPIRONOLACTONE 25 MG TAB 0.5 tablet by mouth daily SPIRONOLACTONE 25 MG TAB 441964 SPIRONOLACTONE Inactive TRIAMCINOLONE ACETONIDE 0.1 % OINT Apply to affected areas TID for up to 2 weeks TRIAMCINOLONE ACETONIDE 0.1 % OINT 6484369 TRIAMCINOLONE ACETONIDE Inactive XANAX 0.5 MG TABS 1 tablet every 6 hrs prn XANAX 0.5 MG TABS 114551 ALPRAZOLAM Inactive METFORMIN HCL 500 MG TABS 1 PO BID METFORMIN HCL 500 MG TABS 765186 METFORMIN HCL Inactive SIMVASTATIN 40 MG TABS Take one by mouth daily SIMVASTATIN 40 MG TABS 491215 SIMVASTATIN Inactive VENLAFAXINE HCL 75 MG TABS 1 po BID VENLAFAXINE HCL 75 MG TABS 840040 VENLAFAXINE HCL Inactive VENLAFAXINE HCL 75 MG TABS 1 po BID VENLAFAXINE HCL 75 MG TABS 475749 VENLAFAXINE HCL Inactive VENLAFAXINE HCL 37.5 MG TABS 1 po BID VENLAFAXINE HCL 37.5 MG TABS 205893 VENLAFAXINE HCL Inactive LORTAB 5 5-500 MG [...] for pain TRAMADOL HCL 50 MG TABS 316805 TRAMADOL HCL Inactive HYDROCODONE-ACETAMINOPHEN 5-500 MG TABS take one po Q 4-6 hours prn HYDROCODONE-ACETAMINOPHEN 5-500 MG TABS HYDROCODONE- ACETAMINOPHEN Inactive DICLOFENAC SODIUM 50 MG TBEC 1 tablet by mouth three times a day as needed DICLOFENAC SODIUM 50 MG TBEC 206992 DICLOFENAC SODIUM Inactive AUGMENTIN 875-125 MG TAB 1 tab by mouth twice daily with food AUGMENTIN 875-125 MG TAB 630168 AMOXICILLIN-POT CLAVULANATE Inactive LAMISIL 250 MG TAB 1 po qd LAMISIL 250 MG TAB 292269 TERBINAFINE HCL Inactive MELATONIN 5 MG TABS Take one by mouth daily MELATONIN 5 MG TABS 849660 MELATONIN Inactive GABAPENTIN 100 MG CAPS 1 po bid GABAPENTIN 100 MG CAPS 551935 GABAPENTIN Inactive ZITHROMAX 250 MG TAB 2 po today, then 1 po q days 2-5 ZITHROMAX 250 MG TAB 9505041 AZITHROMYCIN Inactive REQUIP 2 MG TABS Take one tablet at bedtime prn REQUIP 2 MG TABS 261568 ROPINIROLE HCL Inactive FLONASE 50 MCG/ACT SUSP [...] needed for pain HYDROCODONE-ACETAMINOPHEN 5-325 MG TABS 993815 HYDROCODONE-ACETAMINOPHEN Inactive FENOFIBRATE 145 MG TABS 1 po qd FENOFIBRATE 145 MG TABS 678399 FENOFIBRATE Inactive OMEPRAZOLE 20 MG TBEC 1 PO 30 MIN BEFORE 1ST MEAL OMEPRAZOLE 20 MG TBEC 040182 OMEPRAZOLE Inactive TRUERESULT BLOOD GLUCOSE W/DEVICE KIT [...] daily as needed ACCU-CHEK FASTCLIX LANCETS MISC 47259958449 LANCETS Inactive ACCU-CHEK KEYONA PLUS STRP Use [...] Fluvirin, Fluarix, Agriflu(>=18 yo)) Fluzone (>3 yrs.) [[id number]] Influenza, seasonal, injectable influenza immunization (Flu Vax) has been administered 02/22/2012 influenza virus vaccine, unspecified formulation Seasonal influenza vaccine, injectable, containing preservative, for > 3 years old (Afluria, FluLaval, Fluzone, Fluvirin, Fluarix, Agriflu(>=18 yo)) Fluzone (>3 yrs.) [[id number]] Influenza, seasonal, injectable Vital Signs Date Name [...] % of total hemoglobin 7.4 % 4.3-6.0 calcium, serum 9.3 mg/dL 8.5-10.1 urea nitrogen, blood 23 mg/dL 7-18 creatinine, serum 1.21 mg/dL 0.55-1.30 sodium, serum 140 mmol/L 507-002 8680/09/07 potassium, serum 4.3 mmol/L 3.5-5.2 chloride, serum 104 mmol/L 98-107 carbon dioxide, venous blood 27.7 mmol/L 21.0-32.0 blood glucose 156 mg/dL 65-110 hemoglobin A1C, blood, as % of total hemoglobin 7.1 % 4.3-6.0 Lab Report: Lipid Panel, Comp. Metabolic Panel - Chemistry alanine aminotransferase (SGPT), serum 32 U/L 12-78 aspartate aminotransferase (SGOT), serum 25 U/L 15-37 calcium, serum 9.1 mg/dL 8.5-10.1 bilirubin, serum, total 0.50 mg/dL 0.00-1.00 sodium, serum 140 mmol/L 009-025 3217/01/12 urea nitrogen, blood 16 mg/dL 7-18 blood glucose 139 mg/dL 65-110 chloride, serum 104 mmol/L 98-107 potassium, serum 4.5 mmol/L 3.5-5.2 carbon dioxide, venous blood 27.7 mmol/L 21.0-32.0 LDL cholesterol, serum 56 mg/dL 0-130 HDL cholesterol, serum 41 mg/dL 32-96 triglyceride, serum, fasting 135 mg/dL 30-200 cholesterol, serum 124 mg/dL 130-200 Encounters Code Encounter Date Provider Facility CPT-65619 Level 4 Est. Patient 14:40:19 CDT Tu Landeros MD [facility] CPT-53480 Level 4 Est. Patient 14:06:04 [employer] Tu Landeros MD [facility] CPT-21887 Level 3 Est. Patient 14:05:18 [employer] Tu Landeros MD [facility] CPT-18284 Level 3 Est. Patient 10:06:54 [employer] Miranda Suresh APRN [facility] CPT-10959 Level 4 Est. Patient 13:50:18 [employer] Tu Landeros MD [facility] CPT-69444 Level 3 Est. Patient 10:30:04 CDT Tu Landeros MD [facility] CPT-00651 Level 4 Est. Patient 11:03:38 CDT Tu Landeros MD [facility] CPT-00125 Level 3 Est. Patient 10:20:44 CDT Fab Morales DO [facility] CPT-53528 Level 4 Est. Patient 14:38:57 CDT Tu Landeros MD [facility] CPT-12174 Level 4 Est. Patient 14:27:39 [employer] Tu Landeros MD [facility] CPT-15853 Level 4 Est. Patient 09:45:25 CDT Tu Landeros MD [facility] CPT-05575 Level 4 Est. Patient 09:05:20 [employer] Tu Landeros MD [facility] CPT-45645 Level 4 Est. Patient 14:09:06 CDT Tu Landeros MD [facility] CPT-10817 Level 3 Est. Patient 13:36:54 CDT Tu Landeros MD [facility] CPT-91257 Level 3 Est. Patient 08:59:14 CDT Tu Landeros MD [facility] CPT-39977 Level 3 Est. Patient 13:48:35 CDT Fab Morales DO [facility] CPT-22258 Level 4 Est. Patient 10:05:48 CDT Tu Landeros MD [facility] CPT-24905 Level 3 Est. Patient 13:38:42 CDT Marek BANKS [facility] CPT-67262 Level 5 Est. Patient 08:08:39 CDT Jerrica FRANCIS [facility] CPT-10754 Level 4 Est. Patient 14:23:38 CDT Tu Landeros MD [facility] CPT-44762 Level 3 Est. Patient 11:44:04 CDT Tu Landeros MD [facility] CPT-29407 Level 3 Est. Patient 11:03:20 [employer] Tu Landeros MD [facility] CPT-83085 Level 3 Est. Patient 11:03:14 [employer] Tu Landeros MD [facility] CPT-44897 Level 3 Est. Patient 12:42:49 CDT Tu Landeros MD [facility] CPT-71691 Level 3 Est. Patient 11:52:06 CDT Tu Landeros MD [facility] CPT-14719 Level 3 Est. Patient 13:58:11 CDT Tu Landeros MD [facility] CPT-04433 Level 3 Est. Patient 17:50:07 CDT Fab Morales DO [facility] CPT-23468 Level 3 Est. Patient 12:06:29 CDT Elvira Cervantes MD, PhD [facility] CPT-19341 Level 3 Est. Patient 15:50:32 CDT Tu Landeros MD [facility] CPT-86091 Level 4 Est. Patient 16:08:29 CDT Tu Landeros MD [facility] CPT-81761 Level 3 Est. Patient 16:04:19 CDT Tu Landeros MD [facility] CPT-68535 Level 3 Est. Patient 11:22:30 [employer] Tu Landeros MD [facility] CPT-71699 Level 4 Est. Patient 16:24:02 [employer] Tu Landeros MD [facility] CPT-18206 Level 3 Est. 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 Tu Landeros MD [facility] Procedures Code Procedure Name Date Entry Date Standard Description CPT-33334 First Vx - Ix admin for Medicare patients 16:46:52 CDT CPT-78450 Fluzone Preservative Free Intramuscular Suspension 16:46 :51 CDT CPT-54398 CBC - LAB USE ONLY 17:14:46 CDT CPT-30387 HGBA1C - LAB USE ONLY 17:14:46 CDT CPT-27681 Venipuncture Draw Fee 17:14:46 CDT CPT-G0438 Initial Annual Wellness Exam 14:13:04 CDT CPT-32587 Breathing Tx 10:06:54 [employer] CPT-49384 Postop F/U Visit 10:02:45 CDT CPT-LR Lesion Removal 09:02:56 CDT CPT-JTINJ Asp/Joint Injection 15:51:27 [employer] CPT-OV Office Visit 15:52:02 [employer] CPT-OV Office Visit 15:45:11 CDT CPT-000 Give Zostavax 14:09:06 CDT CPT-30398 Administration single or combination vaccine inc oral 15 :19:04 CDT CPT-25307 Zoster Vaccine (Zostavax) 15:19:04 CDT CPT-50219 Administration single or combination vaccine inc oral 20 :51:03 CDT CPT-01118 Influenza split virus > age 3 20:51:03 CDT CPT-44818 No Charge Offi Visit 14:52:03 CDT CPT-OV Office Visit 14:57:43 CDT CPT-OV Office Visit 15:22:32 CDT CPT-84931 Administration single or combination vaccine inc oral 11 :33:15 CDT CPT-58415 Influenza split virus > age 3 11:33:15 CDT
--- OUTSIDE RECORDS SUMMARY | 2018-04-25 15:46 | XMS REPORT | Clinical Summary ---
Author Author Admin, SACHI Clemons [facility] Address Unknown Phone Unavailable Allergies, Adverse [...] SKIN ERUPTION ICD-782.1 Inactive Tu Landeros MD BENIGN PAROXYSMAL POSITIONAL VERTIGO ICD-386.11 Inactive Tu Landeros MD FATIGUE ICD-780.79 Inactive Tu Landeros MD 2012 KNEE PAIN ICD-719.46 Inactive Tu Landeros MD ARTHRITIS ICD-716.90 Inactive Tu Landeros MD PRESSURE ULCER UNSPECIFIED SITE ICD-707.00 Inactive Tu Landeros MD LOCALIZED SUPERFICIAL SWELLING MASS OR LUMP ICD-782.2 Inactive Tu Landeros MD ONYCHOMYCOSIS ICD-110.1 Inactive Tu Landeros MD CARPAL TUNNEL SYNDROME ICD-354.0 Inactive Tu Landeros MD Upper respiratory infection, viral ICD-465.9 Inactive Shaun Sy MD Open wound of other and unspecified parts of trunk, complicated ICD-879.7 Inactive Tu Landeros MD Knee pain, left, acute ICD-719.46 Inactive Tu Landeros MD CONTUSION OF UNSPECIFIED SITE ICD-924.9 Inactive Tu Landeros MD Open wound of abdominal wall, anterior, complicated ICD-879.3 Inactive Tu Landeros MD Medication List Medication Instructions Start Date Stop Date Generic Name NDC Status Provider Patient Instruction METFORMIN HCL 850 MG TABS 1 tablet by mouth twice daily METFORMIN HCL 30092703610 Active Tu Landeros MD Active TRUEDRAW LANCING DEVICE MISC test blood sugar twice daily dx: 250.00 LANCET DEVICES 54518742400 Active Tu Landeros MD Active TRUEDRAW LANCING DEVICE MISC Test twice a day dx 250.0 LANCET DEVICES 32376765449 Active Tu Landeros MD Active TRUERESULT BLOOD GLUCOSE W/DEVICE KIT test blood sugar twice daily dx 250.00 BLOOD GLUCOSE MONITORING SUPPL 82925816270 Active Tu Landeros MD Active TRUETEST TEST INVITR STRP test blood sugar twice daily. DX 250.0 GLUCOSE BLOOD 36804373981 Active Tu Landeros MD Active EMBRACE BLOOD GLUCOSE TEST STRP test blood sugar twice daily DX 250.0 2014 GLUCOSE BLOOD 91853483505 No Longer Active Tu Landeros MD Active TRUETEST TEST STRP test blood sugar three times daily dx: 250.00 GLUCOSE BLOOD 33719014938 No Longer Active Suze VOGEL Active TRUERESULT BLOOD GLUCOSE W/DEVICE KIT use to test blood sugar tid dx: 250.00 BLOOD GLUCOSE MONITORING SUPPL 33295612098 No Longer Active Suze Corey RMA Active ALIGN 4 MG CAPS 1 tid PROBIOTIC PRODUCT 57939435217 No Longer Active Shaun Sy MD Active CIPRO 500 MG TABS 1 bid x 14 days start 09-28-13 CIPROFLOXACIN HCL 97153586776 No Longer Active Shaun Sy MD Active TRAMADOL HCL 50 MG TABS 1-2 tablets every 6 hours as needed for pain TRAMADOL HCL 67210046171 Active Fab Morales DO Active HYDROCODONE-ACETAMINOPHEN 5-325 MG TABS 1 tab by mouth every 6 hours as needed for pain HYDROCODONE-ACETAMINOPHEN 65292378666 No Longer Active Tu Landeros MD Active OMEPRAZOLE 20 MG CPDR 1 po q a.m. OMEPRAZOLE 51297921567 Active Tu Landeros MD Active GABAPENTIN 100 MG CAPS 1 po bid GABAPENTIN 38139942282 No Longer Active Tu Landeros MD Active B-12 100 MCG TABS Take one by mouth daily CYANOCOBALAMIN 43045030555 No Longer Active Tu Landeros MD Active GABAPENTIN 100 MG CAPS by mouth twice a day GABAPENTIN 53895021847 Active Tu Landeros MD Active BACTRIM DS 800-160 MG TABS 1 bid x 14 day start 09-28-13 SULFAMETHOXAZOLE-TRIMETHOPRIM 01994314643 No Longer Active Tu Landeros MD Active SIMVASTATIN 40 MG TABS 1 tab daily at bedtime SIMVASTATIN 96659333198 Active Tu Landeros MD Active CARVEDILOL 12.5 MG TABS 1 po BID CARVEDILOL 88331928072 Active Tu Landeros MD Active SUPER B COMPLEX/VITAMIN C TABS 1 qd B COMPLEX-C 56072213106 Active JASPREET Perez Active TRILIPIX 135 MG CPDR 1 q hs CHOLINE FENOFIBRATE 69389141375 Active Tu Landeros MD Active FENOFIBRATE 145 MG TABS 1 po qd FENOFIBRATE 74431212016 No Longer Active JASPREET Perez Active OMEPRAZOLE 20 MG TBEC 1 PO 30 MIN BEFORE 1ST MEAL OMEPRAZOLE 80737199368 No Longer Active JASPREET Perez Active SIMVASTATIN 40 MG TABS Take one by mouth daily SIMVASTATIN 71690980482 No Longer Active Gustavo HoffeauJASPREET Active VENLAFAXINE HCL 37.5 MG TABS 1 bid VENLAFAXINE HCL 75789440284 Active Tu Landeros MD Active VENLAFAXINE HCL 75 MG TABS 1 po BID VENLAFAXINE HCL 03880078603 No Longer Active Gustavo HoffeauJASPREET Active CIPRO 500 MG TAB 1 tablet by mouth twice daily CIPROFLOXACIN HCL 29759858900 No Longer Active Tu Landeros MD Active VENLAFAXINE HCL 37.5 MG TABS 1 po BID VENLAFAXINE HCL 93976668407 No Longer Active Suzebianca Nicole A Active [employer] STOOL SOFTENER 100 MG CAPS 1 tab daily DOCUSATE SODIUM 13606318267 Active Tu Landeros MD Active LAMISIL 250 MG TAB 1 po qd TERBINAFINE HCL 64572382839 No Longer Active Tu Landeros MD Active LORTAB 5 5-500 MG TABS 1/2 to 1 tablet by mouth every 4 hours as needed for pain HYDROCODONE-ACETAMINOPHEN 17758002315 No Longer Active Tu Landeros MD Active ENALAPRIL MALEATE 20 MG TABS 1.5 po qd ENALAPRIL MALEATE 48750670512 Active Tu Landeros MD Active HYDROCODONE-ACETAMINOPHEN 5-500 MG TABS take one po Q 4-6 hours prn HYDROCODONE-ACETAMINOPHEN 10632313611 No Longer Active Tu Landeros MD Active BACTRIM DS 800-160 MG TABS 1 po BID x 7 days SULFAMETHOXAZOLE-TRIMETHOPRIM 64565130768 No Longer Active Tu Landeros MD Active VENLAFAXINE HCL 75 MG TABS 1 po BID VENLAFAXINE HCL 22864802189 No Longer Active Elvira Cervantes MD PhD Active TRAMADOL HCL 50 MG TABS 1 tablets every 6 hours as needed for pain TRAMADOL HCL 30470778243 No Longer Active Tu Landeros MD Active ACCU-CHEK FASTCLIX LANCETS MISC Use to check bloodsugar three times daily as needed LANCETS 56501310055 No Longer Active Tu Landeros MD Active ACCU-CHEK KEYONA PLUS STRP Use for testing bloodsugars three times daily as needed GLUCOSE BLOOD 40762652415 No Longer Active Tu Landeros MD Active ACCU-CHEK KEYONA PLUS W/DEVICE KIT Use for testing bloodsugars three times daily as needed BLOOD GLUCOSE MONITORING SUPPL 32219539026 No Longer Active Tu Landeros MD Active SPIRONOLACTONE 25 MG TAB 0.5 tablet by mouth daily SPIRONOLACTONE 66101369460 No Longer Active Tu Landeros MD Active ALPRAZOLAM 0.5 MG TABS 1 tab every 6hrs as needed ALPRAZOLAM 25224146314 No Longer Active Tu Landeros MD Active AUGMENTIN 875-125 MG TAB 1 tab by mouth twice daily with food AMOXICILLIN-POT CLAVULANATE 14108938522 No Longer Active Tu Landeros MD Active PREDNISONE 20 MG TAB 2 tabs daily for 3 days, 1 tab daily for 3 days, 1/2 tab daily for 2 days PREDNISONE 56797283422 No Longer Active Tu Landeros MD Active XANAX 0.5 MG TABS 1 tablet every 6 hrs prn ALPRAZOLAM 05804507144 No Longer Active Tu Landeros MD Active PREDNISONE 20 MG TAB 2 tabs daily for 3 days, 1 tab daily for 3 days, 1/2 tab daily for 2 days PREDNISONE 16745885294 No Longer Active uT Landeros MD Active TRIAMCINOLONE ACETONIDE 0.1 % OINT Apply to affected areas TID for up to 2 weeks TRIAMCINOLONE ACETONIDE 34484842212 No Longer Active Tu Landeros MD Active LORTAB 5 5-500 MG TABS 1/2 to 1 tablet by mouth every 4 hours as needed for pain HYDROCODONE-ACETAMINOPHEN 35600024047 No Longer Active Tu Landeros MD Active MULTIVITAMINS TABS Take one by mouth daily MULTIPLE VITAMIN 26992149973 No Longer Active Tu Landeros MD Active MELATONIN 5 MG TABS Take one by mouth daily MELATONIN 16837858823 No Longer Active Tu Landeros MD Active SOMA 350 MG TAB 1 po q 6 hours prn spasm CARISOPRODOL 89090911818 No Longer Active Tu Landeros MD Active MECLIZINE HCL 25 MG CHEW TAB 1 four times a day as needed for dizziness 08/05 MECLIZINE HCL 34913664399 No Longer Active Fab Morales DO Active ANGEL BREEZE 2 TEST DISK test tid prn GLUCOSE BLOOD 04889229108 No Longer Active Negra Scott RN Active DICLOFENAC SODIUM 50 MG TBEC 1 tablet by mouth three times a day as needed DICLOFENAC SODIUM 76717678736 Active Tu Landeros MD Active REGLAN 10 MG TAB 1 po TID PRN [place] METOCLOPRAMIDE HCL 71512690976 No Longer Active Tu Landeros MD Active METFORMIN HCL 500 MG TABS 1 PO BID METFORMIN HCL 88745510259 No Longer Active Tu Landeros MD Active AMBIEN 10 MG TAB 1 tab by mouth at bedtime as needed for sleep ZOLPIDEM TARTRATE 18012264325 No Longer Active Tu Landeros MD Active FLUOXETINE HCL 40 MG CAPS 1 po q day FLUOXETINE HCL 44714402284 No Longer Active Mayra [place] Active FISH OIL 1000 MG CAPS Take one by mouth daily OMEGA-3 FATTY ACIDS 03894726512 Active Tu Landeros MD Active GLUCOSAMINE 500 MG TABS Take 2 tab po qd GLUCOSAMINE 74430837414 Active Tu Landeros MD Active TRILIPIX 135 MG CPDR 1 po qd CHOLINE FENOFIBRATE 45863130842 No Longer Active Tu Landeros MD Active ASPIRIN 81 MG CHEW TAB 1 tablet by mouth daily ASPIRIN 62997654075 Active Tu Landeros MD Active FUROSEMIDE 40 MG TAB 1 tablet by mouth daily FUROSEMIDE 67288548796 Active Tu Landeros MD Active REQUIP 2 MG TABS Take one tablet at bedtime prn ROPINIROLE HCL 31630118608 Active Tu Landeros MD Active KLOR-CON 10 10 MEQ CR-TABS TAKE 2 TABS DAILY POTASSIUM CHLORIDE 71793420810 Active Tu Landeros MD Active AMBIEN 10 MG TAB 1 tab by mouth at bedtime as needed for sleep AMBIEN 10 MG TAB 710933 ZOLPIDEM TARTRATE Inactive METFORMIN HCL 500 MG TABS 1 PO BID METFORMIN HCL 500 MG TABS 060703 METFORMIN HCL Inactive REGLAN 10 MG TAB 1 po TID PRN [place] REGLAN 10 MG TAB 702632 METOCLOPRAMIDE HCL Inactive MECLIZINE HCL 25 MG CHEW TAB 1 four times a day as needed for dizziness 08/05 MECLIZINE HCL 25 MG CHEW TAB 232400 MECLIZINE HCL Inactive SOMA 350 MG TAB 1 po q 6 hours prn spasm SOMA 350 MG TAB 625787 CARISOPRODOL Inactive MELATONIN 5 MG TABS Take one by mouth daily MELATONIN 5 MG TABS 673429 MELATONIN Inactive MULTIVITAMINS TABS Take one by mouth daily MULTIVITAMINS TABS MULTIPLE VITAMIN Inactive LORTAB 5 5-500 MG TABS 1/2 to 1 tablet by mouth every 4 hours as needed for pain LORTAB 5 5-500 MG TABS HYDROCODONE- ACETAMINOPHEN Inactive XANAX 0.5 MG TABS 1 tablet every 6 hrs prn XANAX 0.5 MG TABS 241334 ALPRAZOLAM Inactive AUGMENTIN 875-125 MG TAB 1 tab by mouth twice daily with food AUGMENTIN 875-125 MG TAB 601858 AMOXICILLIN-POT CLAVULANATE Inactive ALPRAZOLAM 0.5 MG TABS 1 tab every 6hrs as needed ALPRAZOLAM 0.5 MG TABS 082133 ALPRAZOLAM Inactive SPIRONOLACTONE 25 MG TAB 0.5 tablet by mouth daily SPIRONOLACTONE 25 MG TAB 525713 SPIRONOLACTONE Inactive ACCU-CHEK KEYONA PLUS W/DEVICE KIT Use for testing bloodsugars three times daily as needed ACCU-CHEK KEYONA PLUS W/DEVICE KIT BLOOD GLUCOSE MONITORING SUPPL Inactive ACCU-CHEK KEYONA PLUS STRP Use for testing bloodsugars three times daily as needed ACCU-CHEK KEYONA PLUS STRP GLUCOSE BLOOD Inactive ACCU-CHEK FASTCLIX LANCETS MISC Use to check bloodsugar three times daily as needed ACCU-CHEK FASTCLIX LANCETS MISC 88275804404 LANCETS Inactive TRAMADOL HCL 50 MG TABS 1 tablets every 6 hours as needed for pain TRAMADOL HCL 50 MG TABS 125301 TRAMADOL HCL Inactive VENLAFAXINE HCL 75 MG TABS 1 po BID VENLAFAXINE HCL 75 MG TABS 664187 VENLAFAXINE HCL Inactive HYDROCODONE-ACETAMINOPHEN 5-500 MG TABS take one po Q 4-6 hours prn HYDROCODONE-ACETAMINOPHEN 5-500 MG TABS HYDROCODONE- ACETAMINOPHEN Inactive LORTAB 5 5-500 MG TABS 1/2 to 1 tablet by mouth every 4 hours as needed for pain LORTAB 5 5-500 MG TABS HYDROCODONE- ACETAMINOPHEN Inactive LAMISIL 250 MG TAB 1 po qd LAMISIL 250 MG TAB 882945 TERBINAFINE HCL Inactive VENLAFAXINE HCL 37.5 MG TABS 1 po BID VENLAFAXINE HCL 37.5 MG TABS 285049 VENLAFAXINE HCL Inactive CIPRO 500 MG TAB 1 tablet by mouth twice daily CIPRO 500 MG TAB 384392 CIPROFLOXACIN HCL Inactive VENLAFAXINE HCL 75 MG TABS 1 po BID VENLAFAXINE HCL 75 MG TABS 087977 VENLAFAXINE HCL Inactive SIMVASTATIN 40 MG TABS Take one by mouth daily SIMVASTATIN 40 MG TABS 078048 SIMVASTATIN Inactive OMEPRAZOLE 20 MG TBEC 1 PO 30 MIN BEFORE 1ST MEAL OMEPRAZOLE 20 MG TBEC 791984 OMEPRAZOLE Inactive FENOFIBRATE 145 MG TABS 1 po qd FENOFIBRATE 145 MG TABS 240707 FENOFIBRATE Inactive BACTRIM DS 800-160 MG TABS 1 bid x 14 day start 09-28-13 BACTRIM DS 800-160 MG TABS SULFAMETHOXAZOLE-TRIMETHOPRIM Inactive B-12 100 MCG TABS Take one by mouth daily B-12 100 MCG TABS CYANOCOBALAMIN Inactive GABAPENTIN 100 MG CAPS 1 po bid GABAPENTIN 100 MG CAPS 182887 GABAPENTIN Inactive HYDROCODONE-ACETAMINOPHEN 5-325 MG TABS 1 tab by mouth every 6 hours as needed for pain HYDROCODONE-ACETAMINOPHEN 5-325 MG TABS 419731 HYDROCODONE-ACETAMINOPHEN Inactive CIPRO 500 MG TABS 1 bid x 14 days start 09-28-13 CIPRO 500 MG TABS 694016 CIPROFLOXACIN HCL Inactive ALIGN 4 MG CAPS [...] 2 weeks TRIAMCINOLONE ACETONIDE 0.1 % OINT 2844822 TRIAMCINOLONE ACETONIDE Inactive PREDNISONE 20 MG TAB 2 tabs daily for 3 days, 1 tab daily for 3 days, 1/2 tab daily for 2 days PREDNISONE 20 MG TAB 103453 PREDNISONE Inactive PREDNISONE 20 MG TAB 2 tabs daily for 3 days, 1 tab daily for 3 days, 1/2 tab daily for 2 days PREDNISONE 20 MG TAB 254288 PREDNISONE Inactive BACTRIM DS 800-160 MG TABS 1 po BID x 7 days BACTRIM DS 800-160 MG TABS SULFAMETHOXAZOLE-TRIMETHOPRIM Inactive Immunizations Vaccine Administration Date Value Standard Description Seasonal influenza vaccine, injectable, containing preservative, for > 3 years old (Afluria, FluLaval, Fluzone, Fluvirin, Fluarix, Agriflu(>=18 yo)) Fluzone (>3 yrs.) [UQO950] Influenza, seasonal, injectable influenza immunization (Flu Vax) has been administered 02/22/2012 influenza virus vaccine, unspecified formulation Seasonal influenza vaccine, injectable, containing preservative, for > 3 years old (Afluria, FluLaval, Fluzone, Fluvirin, Fluarix, Agriflu(>=18 yo)) Fluzone (>3 yrs.) [VQO354] Influenza, seasonal, injectable Vital Signs Date Name [...] E&M - 3141-9 312 [lb_av] Weight Measured Diagnostic Results Date Name Value Unit Range Description Chart Maintenance: Outside labs entered on flowsheet - Chemistry hemoglobin A1C, blood, as % of total hemoglobin 6.2 % hemoglobin A1C, blood, as % of total hemoglobin 6.4 % Lab Report: Basic Metabolic Panel, CBC - Chemistry sodium, serum 143 mmol/L 042-075 4919/03/10 potassium, serum 4.9 mmol/L 3.5-5.2 chloride, serum [...] mg/dL Encounters Code Encounter Date Provider Facility CPT-07959 Level 4 Est. Patient 14:38:57 CDT Tu Landeros MD [facility] CPT-82670 Level 4 Est. Patient 14:27:39 SYSTEM SUPPORT DEVELOPER Tu Landeros MD [facility] CPT-26783 Level 4 Est. Patient 09:45:25 CDT Tu Landeros MD [facility] CPT-61734 Level 4 Est. Patient 09:05:20 SYSTEM SUPPORT DEVELOPER Tu Landeros MD [facility] CPT-39866 Level 4 Est. Patient 14:09:06 CDT Tu Landeros MD [facility] CPT-17476 Level 3 Est. Patient 13:36:54 CDT Tu Landeros MD [facility] CPT-43722 Level 3 Est. Patient 08:59:14 CDT Tu Landeros MD [facility] CPT-69247 Level 3 Est. Patient 13:48:35 CDT Fab Morales DO [facility] CPT-74137 Level 4 Est. Patient 10:05:48 CDT Tu Landeros MD [facility] CPT-90673 Level 3 Est. Patient 13:38:42 CDT Marek BANKS [facility] CPT-96195 Level 5 Est. Patient 08:08:39 CDT Jerrica FRANCIS [facility] CPT-86680 Level 4 Est. Patient 14:23:38 CDT Tu Landeros MD [facility] CPT-24784 Level 3 Est. Patient 11:44:04 CDT Tu Landeros MD [facility] CPT-41146 Level 3 Est. Patient 11:03:20 SYSTEM SUPPORT DEVELOPER Tu Landeros MD [facility] CPT-45121 Level 3 Est. Patient 11:03:14 SYSTEM SUPPORT DEVELOPER Tu Landeros MD [facility] CPT-53605 Level 3 Est. Patient 12:42:49 CDT Tu Landeros MD [facility] CPT-67273 Level 3 Est. Patient 11:52:06 CDT Tu Landeros MD [facility] CPT-34976 Level 3 Est. Patient 13:58:11 CDT Tu Landeros MD [facility] CPT-24464 Level 3 Est. Patient 17:50:07 CDT Fab Morales DO [facility] CPT-98207 Level 3 Est. Patient 12:06:29 CDT Elvira Cervantes MD PhD [facility] CPT-89656 Level 3 Est. Patient 15:50:32 CDT Tu Landeros MD [facility] CPT-48788 Level 4 Est. Patient 16:08:29 CDT Tu Landeros MD [facility] CPT-84327 Level 3 Est. Patient 16:04:19 CDT Tu Landeros MD [facility] CPT-23544 Level 3 Est. Patient 11:22:30 SYSTEM SUPPORT DEVELOPER Tu Landeros MD [facility] CPT-85042 Level 4 Est. Patient 16:24:02 SYSTEM SUPPORT DEVELOPER Tu Landeros MD [facility] CPT-58667 Level 3 Est. Patient 17:21:23 SYSTEM SUPPORT DEVELOPER Tu Landeros MD [facility] Procedures Code Procedure Name Date Entry Date Standard Description CPT-JTINJ Asp/Joint Injection 15:51:27 SYSTEM SUPPORT DEVELOPER CPT-OV Office Visit 15:52:02 SYSTEM SUPPORT DEVELOPER CPT-OV Office Visit 15:45:11 CDT CPT-000 Give Zostavax 14:09:06 CDT CPT-49008 Administration single or combination vaccine inc oral 15 :19:04 CDT CPT-86341 Zoster Vaccine (Zostavax) 15:19:04 CDT CPT-55619 Administration single or combination vaccine inc oral 20 :51:03 CDT CPT-00350 Influenza split virus > age 3 20:51:03 CDT CPT-87166 No Charge Offi Visit 14:52:03 CDT CPT-OV Office Visit 14:57:43 CDT CPT-OV Office Visit 15:22:32 CDT CPT-50062 Administration single or combination vaccine inc oral 11 :33:15 CDT CPT-93087 Influenza split virus > age 3 11:33:15 CDT
--- OUTSIDE RECORDS SUMMARY | 2018-04-25 15:48 | XMS REPORT | Clinical Summary ---
Author Author Admin, SACHI Organization [employer] Address Unknown Phone Unavailable Allergies, Adverse Reactions, [...] SKIN ERUPTION ICD-782.1 Inactive Tu Landeros MD CARPAL TUNNEL SYNDROME [...] left, acute ICD-719.46 Inactive Tu Landeros MD ONYCHOMYCOSIS ICD-110.1 Tessa Landeros MD Ear pain, bilateral ICD-388.70 Tessa Landeros MD Sebaceous cyst ICD-706.2 Tessa Landeros MD Upper respiratory infection, viral ICD-465.9 Inactive Tu Landeros MD Sinusitis - acute ICD-461.9 Inactive Tu Landeros MD Leg pain, left ICD-729.5 Inactive Tu Landeros MD Vision impairment, both eyes, impairment level not further specified ICD- 369.20 Inactive Tu Landeros MD Osteoarthritis ICD-715.90 Inactive Tu Landeros MD Hot flashes ICD-627.2 Inactive Tu Landeros MD Great toe pain ICD-729.5 Inactive Tu Landeros MD Pain in unspecified foot ICD-729.5 Inactive Tu Landeros MD Shoulder pain, right ICD-719.41 Inactive Tu Landeros MD Medication List Medication Instructions Start Date Stop Date Generic Name NDC Status Provider Patient Instruction AZITHROMYCIN 250 MG ORAL TABLET 2 po qd x 1, then 1 po qd x 4 AZITHROMYCIN 33991271696 Active Tu Landeros MD Active GUAIFENESIN ER 600 MG ORAL TABLET EXTENDED RELEASE 12 HOUR 1 twice a day as needed for congestion GUAIFENESIN 67334117059 No Longer Active Tu Landeros MD Active PREDNISONE 20 MG ORAL TABLET 2 po qd x 5 days PREDNISONE 21338026539 No Longer Active Tu Landeros MD Active PROMETHAZINE-CODEINE 6.25-10 MG/5ML ORAL SYRUP 5ml po q6hr PRN Cough PROMETHAZINE-CODEINE 91027827605 Active Tu Landeros MD Active FLUTICASONE PROPIONATE 50 MCG/ACT NASAL SUSPENSION 2 sprays/nostril qd PRN Congestion/Allergies FLUTICASONE PROPIONATE 13617078668 Active Tu Landeros MD Active NASONEX 50 MCG/ACT NASAL SUSPENSION 2 actuations in each nostril q day 07/15 MOMETASONE FUROATE 06754583125 No Longer Active Tu Landeros MD Active MAGNESIUM OXIDE 400 MG ORAL TABLET 1 po BID MAGNESIUM OXIDE 81765581673 Active Tu Landeros MD Active SIMVASTATIN 20 MG ORAL TABLET 0.5 po qHS SIMVASTATIN 69526837956 Active Tu Landeros MD Active DICLOFENAC SODIUM 75 MG ORAL TABLET DELAYED RELEASE 1 po BID PRN Pain DICLOFENAC SODIUM 74149249680 No Longer Active Tu Landeros MD Active GABAPENTIN 100 MG ORAL CAPSULE 1 po TID GABAPENTIN 91988401457 Active Tu Landeros MD Active DICLOFENAC SODIUM 50 MG ORAL TABLET DELAYED RELEASE 1 po BID PRN Pain DICLOFENAC SODIUM 05844131178 No Longer Active Tu Landeros MD Active CYCLOBENZAPRINE HCL 10 MG ORAL TABLET 1 po TID PRN Muscle Spasm CYCLOBENZAPRINE HCL 32886162376 No Longer Active Tu Landeros MD Active INVOKANA 100 MG ORAL TABLET 1 po qd CANAGLIFLOZIN 28911929709 Active Tu Landeros MD Active GLIPIZIDE 5 MG ORAL TABLET 1 po qd GLIPIZIDE 35849102448 No Longer Active Tu Landeros MD Active VENLAFAXINE HCL 75 MG ORAL TABLET 1 po BID VENLAFAXINE HCL 30802142160 Active Tu Landeros MD Active GLIMEPIRIDE 1 MG ORAL TABLET 1 po qd GLIMEPIRIDE 91932955976 No Longer Active Tu Landeros MD Active TRUE METRIX BLOOD GLUCOSE TEST IN VITRO STRIP Test blood sugar BID Dx: E11.9 GLUCOSE BLOOD 09523949770 Active Tu Landeros MD Active TRUE METRIX AIR GLUCOSE METER w/Device KIT Test blood glucose BID Dx: E11.9 BLOOD GLUCOSE MONITORING SUPPL 32179318008 Active Tu Landeros MD Active TRUETEST TEST IN VITRO STRIP test blood sugar twice daily. DX 250.0 GLUCOSE BLOOD 82494982059 No Longer Active Mirna Stanley LPN Active TRUEDRAW LANCING DEVICE test blood sugar twice daily dx: 250.00 LANCET DEVICES 80376769724 No Longer Active Mirna Stanley LPN Active ENALAPRIL MALEATE 20 MG ORAL TABLET 2 po qd ENALAPRIL MALEATE 54497911370 Active Tu Landeros MD Active SUPER B COMPLEX/VITAMIN C ORAL TABLET 1 qd B COMPLEX- C 89545889509 No Longer Active Tu Landeros MD Active ASPIRIN EC 81 MG ORAL TABLET DELAYED RELEASE 1 po qd ASPIRIN 02638883375 Active Tu Landeros MD Active GLUCOSAMINE 500 MG TABS 2 po qd GLUCOSAMINE Active Tu Landeros MD Active FISH OIL 1000 MG ORAL CAPSULE 1 po qd OMEGA-3 FATTY ACIDS 46041154251 Active Tu Landeros MD Active METFORMIN HCL 1000 MG ORAL TABLET 1 po BID METFORMIN HCL 34925562600 Active Tu Landeros MD Active KLOR-CON 10 10 MEQ ORAL TABLET EXTENDED RELEASE 2 po qd POTASSIUM CHLORIDE 57054113785 Active Tu Landeros MD Active FUROSEMIDE 40 MG ORAL TABLET 1 po qd FUROSEMIDE 27144287058 Active Tu Landeros MD Active REQUIP 2 MG ORAL TABLET 1 po qHS PRN Restless legs ROPINIROLE HCL 75178715983 Active Tu Landeros MD Active REQUIP 2 MG ORAL TABLET Take one tablet at bedtime prn ROPINIROLE HCL 18134674939 No Longer Active Tu Landeros MD Active VENTOLIN HFA 108 (90 Base) MCG/ACT INHALATION AEROSOL SOLUTION 1-2 puffs every 4 hours if needed for cough/congestion ALBUTEROL SULFATE 48400503383 No Longer Active Ambika Aden APRN Active ZITHROMAX 250 MG ORAL TABLET 2 po today, then 1 po q days 2-5 AZITHROMYCIN 74133300696 No Longer Active Miranda Farah APRN Active FLONASE 50 MCG/ACT NASAL SUSPENSION 1 spray each nostril twice daily until bottle empty FLUTICASONE PROPIONATE 34310171274 No Longer Active Tu Landeros MD Active COLACE 100 MG ORAL CAPSULE 1 po BID PRN Constipation DOCUSATE SODIUM 77090530109 Active Tu Landeros MD Active TRUERESULT BLOOD GLUCOSE w/Device KIT test blood sugar twice daily dx 250.00 BLOOD GLUCOSE MONITORING SUPPL 78186782612 No Longer Active Tu Landeros MD Active TRUEDRAW LANCING DEVICE Test twice a day dx 250.0 LANCET DEVICES 48200140058 No Longer Active Tu Landeros MD Active PREDNISONE 20 MG ORAL TABLET 2 tablets once daily for 2 days, then 1 tablet once daily for 2 days PREDNISONE 82912441163 No Longer Active Tu Landeros MD Active DICLOFENAC SODIUM 50 MG ORAL TABLET DELAYED RELEASE 1 tablet by mouth three times a day as needed DICLOFENAC SODIUM 87467458410 No Longer Active Fab Morales DO Active EMBRACE BLOOD GLUCOSE TEST IN VITRO STRIP test blood sugar twice daily DX 250.0 GLUCOSE BLOOD 67388682716 No Longer Active Tu Landeros MD Active TRUETEST TEST IN VITRO STRIP test blood sugar three times daily dx: 250.00 GLUCOSE BLOOD 03759732469 No Longer Active Suzebianca Nicole RMA Active TRUERESULT BLOOD GLUCOSE w/Device KIT use to test blood sugar tid dx: 250.00 BLOOD GLUCOSE MONITORING SUPPL 65000187638 No Longer Active Suze Corey RMA Active ALIGN 4 MG ORAL CAPSULE 1 tid PROBIOTIC PRODUCT 36077093153 No Longer Active Shaun Sy MD Active CIPRO 500 MG ORAL TABLET 1 bid x 14 days start 09-28-13 CIPROFLOXACIN HCL 50955893301 No Longer Active Shaun Sy MD Active TRAMADOL HCL 50 MG ORAL TABLET 1-2 tablets every 6 hours as needed for pain TRAMADOL HCL 15201063111 Active Tu Landeros MD Active HYDROCODONE-ACETAMINOPHEN 5-325 MG ORAL TABLET 1 tab by mouth every 6 hours as needed for pain HYDROCODONE-ACETAMINOPHEN 39302444564 No Longer Active Tu Landeros MD Active OMEPRAZOLE 20 MG ORAL CAPSULE DELAYED RELEASE 1 po q a.m. OMEPRAZOLE 00626478018 Active Fab Morales DO Active GABAPENTIN 100 MG ORAL CAPSULE 1 po bid GABAPENTIN 98845061448 No Longer Active Tu Landeros MD Active B-12 100 MCG ORAL TABLET Take one by mouth daily CYANOCOBALAMIN 93920376733 No Longer Active Tu Landeros MD Active BACTRIM DS 800-160 MG ORAL TABLET 1 bid x 14 day start 09-28-13 SULFAMETHOXAZOLE-TRIMETHOPRIM 41790792671 No Longer Active Tu Landeros MD Active CARVEDILOL 12.5 MG ORAL TABLET 1 po BID CARVEDILOL 36673884669 Active Tu Landeros MD Active TRILIPIX 135 MG ORAL CAPSULE DELAYED RELEASE 1 q hs CHOLINE FENOFIBRATE 26158646420 Active Tu Landeros MD Active FENOFIBRATE 145 MG ORAL TABLET 1 po qd FENOFIBRATE 90478637001 No Longer Active JASPREET Perez Active OMEPRAZOLE 20 MG ORAL TABLET DELAYED RELEASE 1 PO 30 MIN BEFORE 1ST MEAL 2010 OMEPRAZOLE 13743937197 No Longer Active JASPREET Perez Active SIMVASTATIN 40 MG ORAL TABLET Take one by mouth daily SIMVASTATIN 61893880492 No Longer Active JASPREET Perez Active VENLAFAXINE HCL 75 MG ORAL TABLET 1 po BID VENLAFAXINE HCL 94246583297 No Longer Active JASPREET Perez Active CIPRO 500 MG ORAL TABLET 1 tablet by mouth twice daily CIPROFLOXACIN HCL 65703654100 No Longer Active Tu Landeros MD Active VENLAFAXINE HCL 37.5 MG ORAL TABLET 1 po BID VENLAFAXINE HCL 52762105757 No Longer Active Suze VOGEL Active LAMISIL 250 MG ORAL TABLET 1 po qd TERBINAFINE HCL 85834374197 No Longer Active Tu Landeros MD Active LORTAB 5-500 MG ORAL TABLET 1/2 to 1 tablet by mouth every 4 hours as needed for pain HYDROCODONE-ACETAMINOPHEN 07565888442 No Longer Active Tu Landeros MD Active HYDROCODONE-ACETAMINOPHEN 5-500 MG ORAL TABLET take one po Q 4-6 hours prn HYDROCODONE-ACETAMINOPHEN 64263940860 No Longer Active Tu Landeros MD Active BACTRIM DS 800-160 MG ORAL TABLET 1 po BID x 7 days SULFAMETHOXAZOLE-TRIMETHOPRIM 03819490755 No Longer Active Tu Landeros MD Active VENLAFAXINE HCL 75 MG ORAL TABLET 1 po BID VENLAFAXINE HCL 32156927117 No Longer Active Elvira Cervantes MD PhD Active TRAMADOL HCL 50 MG ORAL TABLET 1 tablets every 6 hours as needed for pain TRAMADOL HCL 84516802057 No Longer Active Tu Landeros MD Active ACCU-CHEK FASTCLIX LANCETS Use to check bloodsugar three times daily as needed LANCETS 75166856124 No Longer Active Tu Landeros MD Active ACCU-CHEK KEYONA PLUS IN VITRO STRIP Use for testing bloodsugars three times daily as needed GLUCOSE BLOOD 92660860275 No Longer Active Tu Landeros MD Active ACCU-CHEK KEYONA PLUS w/Device KIT Use for testing bloodsugars three times daily as needed BLOOD GLUCOSE MONITORING SUPPL 50196695130 No Longer Active Tu Landeros MD Active SPIRONOLACTONE 25 MG ORAL TABLET 0.5 tablet by mouth daily 09/09 SPIRONOLACTONE 14326809835 No Longer Active Tu Landeros MD Active ALPRAZOLAM 0.5 MG ORAL TABLET 1 tab every 6hrs as needed ALPRAZOLAM 85176872337 No Longer Active Tu Landeros MD Active AUGMENTIN 875-125 MG ORAL TABLET 1 tab by mouth twice daily with food AMOXICILLIN-POT CLAVULANATE 60844150487 No Longer Active Tu Landeros MD Active PREDNISONE 20 MG ORAL TABLET 2 tabs daily for 3 days, 1 tab daily for 3 days, 1/2 tab daily for 2 days PREDNISONE 55489018449 No Longer Active Tu Landeros MD Active XANAX 0.5 MG ORAL TABLET 1 tablet every 6 hrs prn ALPRAZOLAM 23228292819 No Longer Active Tu Landeros MD Active PREDNISONE 20 MG ORAL TABLET 2 tabs daily for 3 days, 1 tab daily for 3 days, 1/2 tab daily for 2 days PREDNISONE 99704799625 No Longer Active Tu Landeros MD Active TRIAMCINOLONE ACETONIDE 0.1 % EXTERNAL OINTMENT Apply to affected areas TID for up to 2 weeks TRIAMCINOLONE ACETONIDE 85186704635 No Longer Active Tu Landeros MD Active LORTAB 5-500 MG ORAL TABLET 1/2 to 1 tablet by mouth every 4 hours as needed for pain HYDROCODONE-ACETAMINOPHEN 19575454914 No Longer Active Tu Landeros MD Active MULTIVITAMINS TABS Take one by mouth daily MULTIPLE VITAMIN 59060167266 No Longer Active Tu Landeros MD Active MELATONIN 5 MG ORAL TABLET Take one by mouth daily MELATONIN 55767704120 No Longer Active Tu Landeros MD Active SOMA 350 MG ORAL TABLET 1 po q 6 hours prn spasm CARISOPRODOL 56666738787 No Longer Active Tu Landeros MD Active MECLIZINE HCL 25 MG ORAL TABLET CHEWABLE 1 four times a day as needed for dizziness MECLIZINE HCL 97220773364 No Longer Active Fab Morales DO Active ANGEL BREEZE 2 TEST IN VITRO DISK test tid prn GLUCOSE BLOOD 35703983745 No Longer Active Negra Scott RN Active REGLAN 10 MG ORAL TABLET 1 po TID PRN Nausea METOCLOPRAMIDE HCL 28866966506 No Longer Active Tu Landeros MD Active METFORMIN HCL 500 MG ORAL TABLET 1 PO BID METFORMIN HCL 29480608940 No Longer Active Tu Landeros MD Active AMBIEN 10 MG ORAL TABLET 1 tab by mouth at bedtime as needed for sleep 06/10 ZOLPIDEM TARTRATE 20916928826 No Longer Active Tu Landeros MD Active FLUOXETINE HCL 40 MG ORAL CAPSULE 1 po q day FLUOXETINE HCL 71291062493 No Longer Active Mayra Terry Active TRILIPIX 135 MG ORAL CAPSULE DELAYED RELEASE 1 po qd CHOLINE FENOFIBRATE 51384855128 No Longer Active Tu Landeros MD Active AMBIEN 10 MG ORAL TABLET 1 tab by mouth at bedtime as needed for sleep 06/10 AMBIEN 10 MG ORAL TABLET 069211 ZOLPIDEM TARTRATE Inactive METFORMIN HCL 500 MG ORAL TABLET 1 PO BID METFORMIN HCL 500 MG ORAL TABLET 781332 METFORMIN HCL Inactive REGLAN 10 MG ORAL TABLET 1 po TID PRN Nausea REGLAN 10 MG ORAL TABLET 258713 METOCLOPRAMIDE HCL Inactive MECLIZINE HCL 25 MG ORAL TABLET CHEWABLE 1 four times a day as needed for dizziness MECLIZINE HCL 25 MG ORAL TABLET CHEWABLE 820224 MECLIZINE HCL Inactive SOMA 350 MG ORAL TABLET 1 po q 6 hours prn spasm SOMA 350 MG ORAL TABLET 268660 CARISOPRODOL Inactive MELATONIN 5 MG ORAL TABLET Take one by mouth daily MELATONIN 5 MG ORAL TABLET 503760 MELATONIN Inactive MULTIVITAMINS TABS Take one by mouth daily MULTIVITAMINS TABS MULTIPLE VITAMIN Inactive LORTAB 5-500 MG ORAL TABLET 1/2 to 1 tablet by mouth every 4 hours as needed for pain LORTAB 5-500 MG ORAL TABLET HYDROCODONE- ACETAMINOPHEN Inactive XANAX 0.5 MG ORAL TABLET 1 tablet every 6 hrs prn XANAX 0.5 MG ORAL TABLET 472716 ALPRAZOLAM Inactive AUGMENTIN 875-125 MG ORAL TABLET 1 tab by mouth twice daily with food AUGMENTIN 875-125 MG ORAL TABLET 038276 AMOXICILLIN-POT CLAVULANATE Inactive ALPRAZOLAM 0.5 MG ORAL TABLET 1 tab every 6hrs as needed ALPRAZOLAM 0.5 MG ORAL TABLET 324548 ALPRAZOLAM Inactive SPIRONOLACTONE 25 MG ORAL TABLET 0.5 tablet by mouth daily 09/09 SPIRONOLACTONE 25 MG ORAL TABLET 351354 SPIRONOLACTONE Inactive ACCU-CHEK KEYONA PLUS w/Device KIT [...] times daily as needed ACCU-CHEK FASTCLIX LANCETS 06707982894 LANCETS Inactive TRAMADOL HCL 50 MG ORAL TABLET 1 tablets every 6 hours as needed for pain TRAMADOL HCL 50 MG ORAL TABLET 454081 TRAMADOL HCL Inactive VENLAFAXINE HCL 75 MG ORAL TABLET 1 po BID VENLAFAXINE HCL 75 MG ORAL TABLET 654124 VENLAFAXINE HCL Inactive HYDROCODONE-ACETAMINOPHEN 5-500 MG ORAL TABLET take one po Q 4-6 hours prn HYDROCODONE-ACETAMINOPHEN 5-500 MG ORAL TABLET 649468 HYDROCODONE-ACETAMINOPHEN Inactive LORTAB 5-500 MG ORAL TABLET 1/2 to 1 tablet by mouth every 4 hours as needed for pain LORTAB 5-500 MG ORAL TABLET HYDROCODONE- ACETAMINOPHEN Inactive LAMISIL 250 MG ORAL TABLET 1 po qd LAMISIL 250 MG ORAL TABLET 402294 TERBINAFINE HCL Inactive VENLAFAXINE HCL 37.5 MG ORAL TABLET 1 po BID VENLAFAXINE HCL 37.5 MG ORAL TABLET 915378 VENLAFAXINE HCL Inactive CIPRO 500 MG ORAL TABLET 1 tablet by mouth twice daily CIPRO 500 MG ORAL TABLET 778919 CIPROFLOXACIN HCL Inactive VENLAFAXINE HCL 75 MG ORAL TABLET 1 po BID VENLAFAXINE HCL 75 MG ORAL TABLET 256264 VENLAFAXINE HCL Inactive SIMVASTATIN 40 MG ORAL TABLET Take one by mouth daily SIMVASTATIN 40 MG ORAL TABLET 816118 SIMVASTATIN Inactive OMEPRAZOLE 20 MG ORAL TABLET DELAYED RELEASE 1 PO 30 MIN BEFORE 1ST MEAL 2010 OMEPRAZOLE 20 MG ORAL TABLET DELAYED RELEASE 904374 OMEPRAZOLE Inactive FENOFIBRATE 145 MG ORAL TABLET 1 po qd FENOFIBRATE 145 MG ORAL TABLET 498159 FENOFIBRATE Inactive BACTRIM DS 800-160 MG ORAL TABLET 1 bid x 14 day start 09-28-13 BACTRIM DS 800-160 MG ORAL TABLET 814110 SULFAMETHOXAZOLE- TRIMETHOPRIM Inactive B-12 100 MCG ORAL TABLET Take one by mouth daily B-12 100 MCG ORAL TABLET CYANOCOBALAMIN Inactive GABAPENTIN 100 MG ORAL CAPSULE 1 po bid GABAPENTIN 100 MG ORAL CAPSULE 525363 GABAPENTIN Inactive HYDROCODONE-ACETAMINOPHEN 5-325 MG ORAL TABLET 1 tab by mouth every 6 hours as needed for pain HYDROCODONE-ACETAMINOPHEN 5-325 MG ORAL TABLET 787110 HYDROCODONE-ACETAMINOPHEN Inactive CIPRO 500 MG ORAL TABLET 1 bid x 14 days start 09-28-13 CIPRO 500 MG ORAL TABLET 218909 CIPROFLOXACIN HCL Inactive ALIGN 4 MG ORAL [...] SODIUM 50 MG ORAL TABLET DELAYED RELEASE 135381 DICLOFENAC SODIUM Inactive PREDNISONE 20 MG ORAL TABLET 2 tablets once daily for 2 days, then 1 tablet once daily for 2 days PREDNISONE 20 MG ORAL TABLET 693725 PREDNISONE Inactive TRUEDRAW LANCING DEVICE Test twice a day dx 250.0 TRUEDRAW LANCING DEVICE LANCET DEVICES Inactive TRUERESULT BLOOD GLUCOSE w/Device KIT test blood sugar twice daily dx 250.00 TRUERESULT BLOOD GLUCOSE w/Device KIT BLOOD GLUCOSE MONITORING SUPPL Inactive FLONASE 50 MCG/ACT NASAL SUSPENSION 1 spray each nostril twice daily until bottle empty FLONASE 50 MCG/ACT NASAL SUSPENSION 7188206 FLUTICASONE PROPIONATE Inactive VENTOLIN HFA 108 (90 Base) MCG/ACT INHALATION AEROSOL SOLUTION 1-2 puffs every 4 hours if needed for cough/congestion VENTOLIN HFA 108 (90 Base) MCG/ACT INHALATION AEROSOL SOLUTION ALBUTEROL SULFATE Inactive REQUIP 2 MG ORAL TABLET Take one tablet at bedtime prn REQUIP 2 MG ORAL TABLET 818601 ROPINIROLE HCL Inactive SUPER B COMPLEX/VITAMIN C ORAL TABLET 1 qd SUPER B COMPLEX/VITAMIN C ORAL TABLET 27583631982 B COMPLEX-C Inactive TRUEDRAW LANCING DEVICE test blood sugar twice daily dx: 250.00 TRUEDRAW LANCING DEVICE LANCET DEVICES Inactive TRUETEST TEST IN VITRO STRIP test blood sugar twice daily. DX 250.0 TRUETEST TEST IN VITRO STRIP GLUCOSE BLOOD Inactive CYCLOBENZAPRINE HCL 10 MG ORAL TABLET 1 po TID PRN Muscle Spasm CYCLOBENZAPRINE HCL 10 MG ORAL TABLET 736590 CYCLOBENZAPRINE HCL Inactive DICLOFENAC SODIUM 50 MG ORAL TABLET DELAYED RELEASE 1 po BID PRN Pain DICLOFENAC SODIUM 50 MG ORAL TABLET DELAYED RELEASE 706943 DICLOFENAC SODIUM Inactive DICLOFENAC SODIUM 75 MG ORAL TABLET DELAYED RELEASE 1 po BID PRN Pain DICLOFENAC SODIUM 75 MG ORAL TABLET DELAYED RELEASE 421487 DICLOFENAC SODIUM Inactive NASONEX 50 MCG/ACT NASAL SUSPENSION 2 actuations in each nostril q day 07/15 NASONEX 50 MCG/ACT NASAL SUSPENSION 2712081 MOMETASONE FUROATE Inactive GUAIFENESIN ER 600 MG ORAL TABLET EXTENDED RELEASE 12 HOUR 1 twice a day as needed for congestion GUAIFENESIN ER 600 MG ORAL TABLET EXTENDED RELEASE 12 HOUR GUAIFENESIN Inactive TRIAMCINOLONE ACETONIDE 0.1 % EXTERNAL OINTMENT Apply to affected areas TID for up to 2 weeks TRIAMCINOLONE ACETONIDE 0.1 % EXTERNAL OINTMENT 1611787 TRIAMCINOLONE ACETONIDE Inactive PREDNISONE 20 MG ORAL TABLET 2 tabs daily for 3 days, 1 tab daily for 3 days, 1/2 tab daily for 2 days PREDNISONE 20 MG ORAL TABLET 672284 PREDNISONE Inactive PREDNISONE 20 MG ORAL TABLET 2 tabs daily for 3 days, 1 tab daily for 3 days, 1/2 tab daily for 2 days PREDNISONE 20 MG ORAL TABLET 419679 PREDNISONE Inactive BACTRIM DS 800-160 MG ORAL TABLET 1 po BID x 7 days BACTRIM DS 800-160 MG ORAL TABLET 154659 SULFAMETHOXAZOLE-TRIMETHOPRIM Inactive ZITHROMAX 250 MG ORAL TABLET 2 po today, then 1 po q days 2-5 ZITHROMAX 250 MG ORAL TABLET 691860 AZITHROMYCIN Inactive PREDNISONE 20 MG ORAL TABLET 2 po qd x 5 days PREDNISONE 20 MG ORAL TABLET 873285 PREDNISONE Inactive Advance Directives Directive Description Start Date DISCUSSED WITH PATIENT -- NO DECISION MADE Immunizations Vaccine Administration Date Value Standard Description Seasonal influenza vaccine, injectable, containing preservative, for > 3 years old (Afluria, FluLaval, Fluzone, Fluvirin, Fluarix, Agriflu(>=18 yo)) Fluzone (>3 yrs.) [[id number]] Influenza, seasonal, injectable influenza immunization (Flu Vax) has been administered 02/22/2012 influenza virus vaccine, unspecified formulation Seasonal influenza vaccine, injectable, containing preservative, for > 3 years old (Afluria, FluLaval, Fluzone, Fluvirin, Fluarix, Agriflu(>=18 yo)) Fluzone (>3 yrs.) [[id number]] Influenza, seasonal, injectable Vital Signs Date Name [...] ... - Chemistry sodium, serum 141 mmol/L 720-179 9610/01/16 carbon dioxide, venous blood 28.3 mmol/L 21.0-32.0 [...] 6.7 % 4.3-6.0 cholesterol, serum 106 mg/dL 949-176 7516/01/16 triglyceride, serum, fasting 173 mg/dL 30-200 HDL [...] 4.3-6.0 Encounters Code Encounter Date Provider Facility CPT-42250 Level 3 Est. Patient 10:13:19 [employer] Lesli Kellogg PHYSICIAN INTERNIST [facility] CPT-61526 Level 4 Est. Patient 13:42:02 [employer] Tu Landeros MD [facility] CPT-86091 Level 3 Est. Patient 14:20:36 CDT Tu Landeros MD [facility] CPT-45439 Level 4 Est. Patient 14:28:34 CDT uT Landeros MD [facility] CPT-44849 Level 3 Est. Patient 13:33:09 CDT Tu Landeros MD [facility] CPT-86591 Level 4 Est. Patient 14:29:21 CDT Tu Landeros MD [facility] CPT-03757 Level 4 Est. Patient 09:08:17 [employer] Tu Landeros MD [facility] CPT-01858 Level 4 Est. Patient 14:40:19 CDT Tu Landeros MD [facility] CPT-70988 Level 4 Est. Patient 14:06:04 [employer] Tu Landeros MD [facility] CPT-12288 Level 3 Est. Patient 14:05:18 [employer] Tu Landeros MD [facility] CPT-91693 Level 3 Est. Patient 10:06:54 [employer] Miranda Farah PHYSICIAN INTERNIST [facility] CPT-15521 Level 4 Est. Patient 13:50:18 [employer] Tu Landeros MD [facility] CPT-18521 Level 3 Est. Patient 10:30:04 CDT Tu Landeros MD [facility] CPT-51848 Level 4 Est. Patient 11:03:38 CDT Tu Landeros MD [facility] CPT-53210 Level 3 Est. Patient 10:20:44 CDT Fab Morales DO [facility] CPT-38904 Level 4 Est. Patient 14:38:57 CDT Tu Landeros MD [facility] CPT-93612 Level 4 Est. Patient 14:27:39 [employer] Tu Landeros MD [facility] CPT-81805 Level 4 Est. Patient 09:45:25 CDT Tu Landeros MD [facility] CPT-46720 Level 4 Est. Patient 09:05:20 [employer] Tu Landeros MD [facility] CPT-65847 Level 4 Est. Patient 14:09:06 CDT Tu Landeros MD [facility] CPT-72969 Level 3 Est. Patient 13:36:54 CDT Tu Landeros MD [facility] CPT-83639 Level 3 Est. Patient 08:59:14 CDT Tu Landeros MD [facility] CPT-16234 Level 3 Est. Patient 13:48:35 CDT Fab Morales DO [facility] CPT-34295 Level 4 Est. Patient 10:05:48 CDT Tu Landeros MD [facility] CPT-96288 Level 3 Est. Patient 13:38:42 CDT Marek BANKS [facility] CPT-76303 Level 5 Est. Patient 08:08:39 CDT Jerrica FRANCIS [facility] CPT-43784 Level 4 Est. Patient 14:23:38 CDT Tu Landeros MD [facility] CPT-11571 Level 3 Est. Patient 11:44:04 CDT Tu Landeros MD [facility] CPT-33611 Level 3 Est. Patient 11:03:20 [employer] Tu Landeros MD [facility] CPT-50471 Level 3 Est. Patient 11:03:14 [employer] Tu Landeros MD [facility] CPT-08945 Level 3 Est. Patient 12:42:49 CDT Tu Landeros MD [facility] CPT-59943 Level 3 Est. Patient 11:52:06 CDT Tu Landeros MD [facility] CPT-36274 Level 3 Est. Patient 13:58:11 CDT Tu Landeros MD [facility] CPT-23774 Level 3 Est. Patient 17:50:07 CDT Fab Morales DO [facility] CPT-12747 Level 3 Est. Patient 12:06:29 CDT Elvira Cervantes MD PhD [facility] CPT-22994 Level 3 Est. Patient 15:50:32 CDT Tu Landeros MD [facility] CPT-54118 Level 4 Est. Patient 16:08:29 CDT Tu Landeros MD [facility] CPT-11194 Level 3 Est. Patient 16:04:19 CDT Tu Landeros MD [facility] CPT-57409 Level 3 Est. Patient 11:22:30 [employer] Tu Landeros MD [facility] CPT-69732 Level 4 Est. Patient 16:24:02 [employer] Tu Landeros MD [facility] CPT-53028 Level 3 Est. Patient 17:21:23 [employer] Tu Landeros MD [facility] Procedures Code Procedure Name Date Entry Date Standard Description CPT-72800 Shoulder, right, comp min 2V - XRAY USE ONLY 13:50:22 CDT CPT-G0009 Administration of Pneumococcal Vaccine 15:08:26 CDT CPT-46250 Prevnar 13 Intramuscular Suspension 15:08:26 CDT 10/08 CPT-G0439 [facility] Annual Wellness Exam 14:29:22 CDT CPT-25066 Venipuncture Draw Fee 13:15:35 CDT CPT-19559 Magnesium - LAB USE ONLY 11:14:20 [employer] CPT-39517 Lipid - LAB USE ONLY 11:14:20 [employer] CPT-95256 HGBA1C - LAB USE ONLY 11:14:20 [employer] CPT-39131 CMP - LAB USE ONLY 11:14:19 [employer] CPT-40106 CBC - LAB USE ONLY 11:14:19 [employer] CPT-17238 Venipuncture Draw Fee 11:14:18 [employer] CPT-47145 First Vx - Ix admin for Medicare patients 16:46:52 CDT CPT-21316 Fluzone Preservative Free Intramuscular Suspension 16:46 :51 CDT CPT-67939 CBC - LAB USE ONLY 17:14:46 CDT CPT-45552 HGBA1C - LAB USE ONLY 17:14:46 CDT CPT-55396 Venipuncture Draw Fee 17:14:46 CDT CPT-G0438 Initial Annual Wellness Exam 14:13:04 CDT CPT-98090 Breathing Tx 10:06:54 [employer] CPT-25147 Postop F/U Visit 10:02:45 CDT CPT-LR Lesion Removal 09:02:56 CDT CPT-JTINJ Asp/Joint Injection 15:51:27 [employer] CPT-OV Office Visit 15:52:02 [employer] CPT-OV Office Visit 15:45:11 CDT CPT-000 Give Zostavax 14:09:06 CDT CPT-85245 Administration single or combination vaccine inc oral 15 :19:04 CDT CPT-26635 Zoster Vaccine (Zostavax) 15:19:04 CDT CPT-58598 Administration single or combination vaccine inc oral 20 :51:03 CDT CPT-34969 Influenza split virus > age 3 20:51:03 CDT CPT-27335 No Charge Offi Visit 14:52:03 CDT CPT-OV Office Visit 14:57:43 CDT CPT-OV Office Visit 15:22:32 CDT CPT-43429 Administration single or combination vaccine inc oral 11 :33:15 CDT CPT-65237 Influenza split virus > age 3 11:33:15 CDT
--- OUTSIDE RECORDS SUMMARY | 2018-04-25 15:50 | XMS REPORT | Clinical Summary ---
Author Author Admin, SACHI Organization [facility] Address Unknown Phone Unavailable Allergies, Adverse Reactions, [...] MD Great toe pain ICD-729.5 Inactive Tu Lanedros MD Medication List Medication Instructions Start Date Stop Date Generic Name NDC Status Provider Patient Instruction PROMETHAZINE-CODEINE 6.25-10 MG/5ML ORAL SYRUP 5ml po q6hr PRN Cough PROMETHAZINE-CODEINE 64328023532 No Longer Active Tu Landeros MD Active AZITHROMYCIN 250 MG ORAL TABLET 2 po qd x 1, then 1 po qd x 4 AZITHROMYCIN 80046164691 No Longer Active Tu Landeros MD Active GUAIFENESIN ER 600 MG ORAL TABLET EXTENDED RELEASE 12 HOUR 1 twice a day as needed for congestion GUAIFENESIN 66973219372 No Longer Active Tu Landeros MD Active PREDNISONE 20 MG ORAL TABLET 2 po qd x 5 days PREDNISONE 41682399419 No Longer Active Tu Landeros MD Active FLUTICASONE PROPIONATE 50 MCG/ACT NASAL SUSPENSION 2 sprays/nostril qd PRN Congestion/Allergies FLUTICASONE PROPIONATE 78185408529 Active Tu Landeros MD Active NASONEX 50 MCG/ACT NASAL SUSPENSION 2 actuations in each nostril q day 07/15 MOMETASONE FUROATE 30748192405 No Longer Active Tu Landeros MD Active MAGNESIUM OXIDE 400 MG ORAL TABLET 1 po BID MAGNESIUM OXIDE 44652836090 Active Tu Landeros MD Active SIMVASTATIN 20 MG ORAL TABLET 0.5 po qHS SIMVASTATIN 10083942627 Active Tu Landeros MD Active DICLOFENAC SODIUM 75 MG ORAL TABLET DELAYED RELEASE 1 po BID PRN Pain DICLOFENAC SODIUM 84014410967 No Longer Active Tu Landeros MD Active GABAPENTIN 100 MG ORAL CAPSULE 1 po TID GABAPENTIN 36198340831 Active Tu Landeros MD Active DICLOFENAC SODIUM 50 MG ORAL TABLET DELAYED RELEASE 1 po BID PRN Pain DICLOFENAC SODIUM 23002499590 No Longer Active Tu Landeros MD Active CYCLOBENZAPRINE HCL 10 MG ORAL TABLET 1 po TID PRN Muscle Spasm CYCLOBENZAPRINE HCL 57133297172 No Longer Active Tu Landeros MD Active INVOKANA 100 MG ORAL TABLET 1 po qd CANAGLIFLOZIN 87363288144 Active Tu Landeros MD Active GLIPIZIDE 5 MG ORAL TABLET 1 po qd GLIPIZIDE 92208495412 No Longer Active Tu Landeros MD Active VENLAFAXINE HCL 75 MG ORAL TABLET 1 po BID VENLAFAXINE HCL 07274490654 Active Tu Landeros MD Active GLIMEPIRIDE 1 MG ORAL TABLET 1 po qd GLIMEPIRIDE 62110300950 No Longer Active Tu Landeros MD Active TRUE METRIX BLOOD GLUCOSE TEST IN VITRO STRIP Test blood sugar BID Dx: E11.9 GLUCOSE BLOOD 11253862189 Active Tu Landeros MD Active TRUE METRIX AIR GLUCOSE METER w/Device KIT Test blood glucose BID Dx: E11.9 BLOOD GLUCOSE MONITORING SUPPL 06249763227 Active Tu Landeros MD Active TRUETEST TEST IN VITRO STRIP test blood sugar twice daily. DX 250.0 GLUCOSE BLOOD 39445763478 No Longer Active Mirna Stanley LPN Active TRUEDRAW LANCING DEVICE test blood sugar twice daily dx: 250.00 LANCET DEVICES 46584842265 No Longer Active Mirna Stanley LPN Active ENALAPRIL MALEATE 20 MG ORAL TABLET 2 po qd ENALAPRIL MALEATE 37209457977 Active Tu Landeros MD Active SUPER B COMPLEX/VITAMIN C ORAL TABLET 1 qd B COMPLEX- C 93984506990 No Longer Active Tu Landeros MD Active ASPIRIN EC 81 MG ORAL TABLET DELAYED RELEASE 1 po qd ASPIRIN 47583482827 Active Tu Landeros MD Active GLUCOSAMINE 500 MG TABS 2 po qd GLUCOSAMINE Active Tu Landeros MD Active FISH OIL 1000 MG ORAL CAPSULE 1 po qd OMEGA-3 FATTY ACIDS 26341706003 Active Tu Landeros MD Active METFORMIN HCL 1000 MG ORAL TABLET 1 po BID METFORMIN HCL 88804904074 Active Tu Landeros MD Active KLOR-CON 10 10 MEQ ORAL TABLET EXTENDED RELEASE 2 po qd POTASSIUM CHLORIDE 78595930116 Active Tu Landeros MD Active FUROSEMIDE 40 MG ORAL TABLET 1 po qd FUROSEMIDE 40531796203 Active Tu Landeros MD Active REQUIP 2 MG ORAL TABLET 1 po qHS PRN Restless legs ROPINIROLE HCL 51820770063 Active Tu Landeros MD Active REQUIP 2 MG ORAL TABLET Take one tablet at bedtime prn ROPINIROLE HCL 81522260604 No Longer Active Tu Landeros MD Active VENTOLIN HFA 108 (90 Base) MCG/ACT INHALATION AEROSOL SOLUTION 1-2 puffs every 4 hours if needed for cough/congestion ALBUTEROL SULFATE 65991411688 No Longer Active Ambika Aden APRN Active ZITHROMAX 250 MG ORAL TABLET 2 po today, then 1 po q days 2-5 AZITHROMYCIN 55907101158 No Longer Active Miranda Farah APRN Active FLONASE 50 MCG/ACT NASAL SUSPENSION 1 spray each nostril twice daily until bottle empty FLUTICASONE PROPIONATE 76485664246 No Longer Active Tu Landeros MD Active COLACE 100 MG ORAL CAPSULE 1 po BID PRN Constipation DOCUSATE SODIUM 22741515676 Active Tu Landeros MD Active TRUERESULT BLOOD GLUCOSE w/Device KIT test blood sugar twice daily dx 250.00 BLOOD GLUCOSE MONITORING SUPPL 89793002537 No Longer Active Tu Landeros MD Active TRUEDRAW LANCING DEVICE Test twice a day dx 250.0 LANCET DEVICES 54817236340 No Longer Active Tu Landeros MD Active PREDNISONE 20 MG ORAL TABLET 2 tablets once daily for 2 days, then 1 tablet once daily for 2 days PREDNISONE 34557099784 No Longer Active Tu Landeros MD Active DICLOFENAC SODIUM 50 MG ORAL TABLET DELAYED RELEASE 1 tablet by mouth three times a day as needed DICLOFENAC SODIUM 57618442456 No Longer Active Fab Morales DO Active EMBRACE BLOOD GLUCOSE TEST IN VITRO STRIP test blood sugar twice daily DX 250.0 GLUCOSE BLOOD 75508542367 No Longer Active Tu Landeros MD Active TRUETEST TEST IN VITRO STRIP test blood sugar three times daily dx: 250.00 GLUCOSE BLOOD 40338917108 No Longer Active Suze VOGEL Active TRUERESULT BLOOD GLUCOSE w/Device KIT use to test blood sugar tid dx: 250.00 BLOOD GLUCOSE MONITORING SUPPL 97795004360 No Longer Active Suze Corey VOGEL Active ALIGN 4 MG ORAL CAPSULE 1 tid PROBIOTIC PRODUCT 43185195751 No Longer Active Shaun Sy MD Active CIPRO 500 MG ORAL TABLET 1 bid x 14 days start 09-28-13 CIPROFLOXACIN HCL 39749440188 No Longer Active Shaun Sy MD Active TRAMADOL HCL 50 MG ORAL TABLET 1-2 tablets every 6 hours as needed for pain TRAMADOL HCL 36210294849 Active Tu Landeros MD Active HYDROCODONE-ACETAMINOPHEN 5-325 MG ORAL TABLET 1 tab by mouth every 6 hours as needed for pain HYDROCODONE-ACETAMINOPHEN 27334030278 No Longer Active Tu Landeros MD Active OMEPRAZOLE 20 MG ORAL CAPSULE DELAYED RELEASE 1 po q a.m. OMEPRAZOLE 38017411914 Active Fab Morales DO Active GABAPENTIN 100 MG ORAL CAPSULE 1 po bid GABAPENTIN 28292823701 No Longer Active Tu Landeros MD Active B-12 100 MCG ORAL TABLET Take one by mouth daily CYANOCOBALAMIN 27625975275 No Longer Active Tu Landeros MD Active BACTRIM DS 800-160 MG ORAL TABLET 1 bid x 14 day start 09-28-13 SULFAMETHOXAZOLE-TRIMETHOPRIM 41828979368 No Longer Active Tu Landeros MD Active CARVEDILOL 12.5 MG ORAL TABLET 1 po BID CARVEDILOL 83400818848 Active Tu Landeros MD Active TRILIPIX 135 MG ORAL CAPSULE DELAYED RELEASE 1 q hs CHOLINE FENOFIBRATE 82573709043 Active Tu Landeros MD Active FENOFIBRATE 145 MG ORAL TABLET 1 po qd FENOFIBRATE 44466596862 No Longer Active JASPREET Perez Active OMEPRAZOLE 20 MG ORAL TABLET DELAYED RELEASE 1 PO 30 MIN BEFORE 1ST MEAL 2010 OMEPRAZOLE 99260972202 No Longer Active JASPREET Perez Active SIMVASTATIN 40 MG ORAL TABLET Take one by mouth daily SIMVASTATIN 02951868844 No Longer Active JASPREET Perez Active VENLAFAXINE HCL 75 MG ORAL TABLET 1 po BID VENLAFAXINE HCL 06477188982 No Longer Active JASPREET Perez Active CIPRO 500 MG ORAL TABLET 1 tablet by mouth twice daily CIPROFLOXACIN HCL 19342077842 No Longer Active Tu Landeros MD Active VENLAFAXINE HCL 37.5 MG ORAL TABLET 1 po BID VENLAFAXINE HCL 08863946272 No Longer Active Suzebianca NUNOA Active LAMISIL 250 MG ORAL TABLET 1 po qd TERBINAFINE HCL 45350002242 No Longer Active Tu Landeros MD Active LORTAB 5-500 MG ORAL TABLET 1/2 to 1 tablet by mouth every 4 hours as needed for pain HYDROCODONE-ACETAMINOPHEN 95252709727 No Longer Active Tu Landeros MD Active HYDROCODONE-ACETAMINOPHEN 5-500 MG ORAL TABLET take one po Q 4-6 hours prn HYDROCODONE-ACETAMINOPHEN 01315465188 No Longer Active Tu Landeros MD Active BACTRIM DS 800-160 MG ORAL TABLET 1 po BID x 7 days SULFAMETHOXAZOLE-TRIMETHOPRIM 31439540535 No Longer Active Tu Landeros MD Active VENLAFAXINE HCL 75 MG ORAL TABLET 1 po BID VENLAFAXINE HCL 52484656275 No Longer Active Elvira Cervantes MD PhD Active TRAMADOL HCL 50 MG ORAL TABLET 1 tablets every 6 hours as needed for pain TRAMADOL HCL 42718217170 No Longer Active Tu Landeros MD Active ACCU-CHEK FASTCLIX LANCETS Use to check bloodsugar three times daily as needed LANCETS 42744330952 No Longer Active Tu Landeros MD Active ACCU-CHEK KEYONA PLUS IN VITRO STRIP Use for testing bloodsugars three times daily as needed GLUCOSE BLOOD 94718855682 No Longer Active Tu Landeros MD Active ACCU-CHEK KEYONA PLUS w/Device KIT Use for testing bloodsugars three times daily as needed BLOOD GLUCOSE MONITORING SUPPL 18547360345 No Longer Active Tu Landeros MD Active SPIRONOLACTONE 25 MG ORAL TABLET 0.5 tablet by mouth daily 09/09 SPIRONOLACTONE 50622306701 No Longer Active Tu Landeros MD Active ALPRAZOLAM 0.5 MG ORAL TABLET 1 tab every 6hrs as needed ALPRAZOLAM 97962620955 No Longer Active Tu Landeros MD Active AUGMENTIN 875-125 MG ORAL TABLET 1 tab by mouth twice daily with food AMOXICILLIN-POT CLAVULANATE 57121643990 No Longer Active Tu Landeros MD Active PREDNISONE 20 MG ORAL TABLET 2 tabs daily for 3 days, 1 tab daily for 3 days, 1/2 tab daily for 2 days PREDNISONE 46671222216 No Longer Active Tu Landeros MD Active XANAX 0.5 MG ORAL TABLET 1 tablet every 6 hrs prn ALPRAZOLAM 43625216918 No Longer Active Tu Landeros MD Active PREDNISONE 20 MG ORAL TABLET 2 tabs daily for 3 days, 1 tab daily for 3 days, 1/2 tab daily for 2 days PREDNISONE 01480444608 No Longer Active Tu Landeros MD Active TRIAMCINOLONE ACETONIDE 0.1 % EXTERNAL OINTMENT Apply to affected areas TID for up to 2 weeks TRIAMCINOLONE ACETONIDE 38749991765 No Longer Active Tu Landeros MD Active LORTAB 5-500 MG ORAL TABLET 1/2 to 1 tablet by mouth every 4 hours as needed for pain HYDROCODONE-ACETAMINOPHEN 08087834230 No Longer Active Tu Landeros MD Active MULTIVITAMINS TABS Take one by mouth daily MULTIPLE VITAMIN 97868444313 No Longer Active Tu Landeros MD Active MELATONIN 5 MG ORAL TABLET Take one by mouth daily MELATONIN 88393700491 No Longer Active uT Landeros MD Active SOMA 350 MG ORAL TABLET 1 po q 6 hours prn spasm CARISOPRODOL 67678010918 No Longer Active Tu Landeros MD Active MECLIZINE HCL 25 MG ORAL TABLET CHEWABLE 1 four times a day as needed for dizziness MECLIZINE HCL 65203187488 No Longer Active Fab Morales DO Active ANGEL BREEZE 2 TEST IN VITRO DISK test tid prn GLUCOSE BLOOD 45566473324 No Longer Active Negra Scott RN Active REGLAN 10 MG ORAL TABLET 1 po TID PRN Nausea METOCLOPRAMIDE HCL 73763663119 No Longer Active uT Landeros MD Active METFORMIN HCL 500 MG ORAL TABLET 1 PO BID METFORMIN HCL 84005661457 No Longer Active Tu Landeros MD Active AMBIEN 10 MG ORAL TABLET 1 tab by mouth at bedtime as needed for sleep 06/10 ZOLPIDEM TARTRATE 38999589066 No Longer Active Tu Landeros MD Active FLUOXETINE HCL 40 MG ORAL CAPSULE 1 po q day FLUOXETINE HCL 60423457802 No Longer Active Mayra Terry Active TRILIPIX 135 MG ORAL CAPSULE DELAYED RELEASE 1 po qd CHOLINE FENOFIBRATE 91609456959 No Longer Active Tu Landeros MD Active AMBIEN 10 MG ORAL TABLET 1 tab by mouth at bedtime as needed for sleep 06/10 AMBIEN 10 MG ORAL TABLET 389588 ZOLPIDEM TARTRATE Inactive METFORMIN HCL 500 MG ORAL TABLET 1 PO BID METFORMIN HCL 500 MG ORAL TABLET 073569 METFORMIN HCL Inactive REGLAN 10 MG ORAL TABLET 1 po TID PRN Nausea REGLAN 10 MG ORAL TABLET 679548 METOCLOPRAMIDE HCL Inactive MECLIZINE HCL 25 MG ORAL TABLET CHEWABLE 1 four times a day as needed for dizziness MECLIZINE HCL 25 MG ORAL TABLET CHEWABLE 801514 MECLIZINE HCL Inactive SOMA 350 MG ORAL TABLET 1 po q 6 hours prn spasm SOMA 350 MG ORAL TABLET 978866 CARISOPRODOL Inactive MELATONIN 5 MG ORAL TABLET Take one by mouth daily MELATONIN 5 MG ORAL TABLET 944712 MELATONIN Inactive MULTIVITAMINS TABS Take one by mouth daily MULTIVITAMINS TABS MULTIPLE VITAMIN Inactive LORTAB 5-500 MG ORAL TABLET 1/2 to 1 tablet by mouth every 4 hours as needed for pain LORTAB 5-500 MG ORAL TABLET HYDROCODONE- ACETAMINOPHEN Inactive XANAX 0.5 MG ORAL TABLET 1 tablet every 6 hrs prn XANAX 0.5 MG ORAL TABLET 792472 ALPRAZOLAM Inactive AUGMENTIN 875-125 MG ORAL TABLET 1 tab by mouth twice daily with food AUGMENTIN 875-125 MG ORAL TABLET 050943 AMOXICILLIN-POT CLAVULANATE Inactive ALPRAZOLAM 0.5 MG ORAL TABLET 1 tab every 6hrs as needed ALPRAZOLAM 0.5 MG ORAL TABLET 697785 ALPRAZOLAM Inactive SPIRONOLACTONE 25 MG ORAL TABLET 0.5 tablet by mouth daily 09/09 SPIRONOLACTONE 25 MG ORAL TABLET 259128 SPIRONOLACTONE Inactive ACCU-CHEK KEYONA PLUS w/Device KIT [...] times daily as needed ACCU-CHEK FASTCLIX LANCETS 47847462787 LANCETS Inactive TRAMADOL HCL 50 MG ORAL TABLET 1 tablets every 6 hours as needed for pain TRAMADOL HCL 50 MG ORAL TABLET 911699 TRAMADOL HCL Inactive VENLAFAXINE HCL 75 MG ORAL TABLET 1 po BID VENLAFAXINE HCL 75 MG ORAL TABLET 882518 VENLAFAXINE HCL Inactive HYDROCODONE-ACETAMINOPHEN 5-500 MG ORAL TABLET take one po Q 4-6 hours prn HYDROCODONE-ACETAMINOPHEN 5-500 MG ORAL TABLET 791233 HYDROCODONE-ACETAMINOPHEN Inactive LORTAB 5-500 MG ORAL TABLET 1/2 to 1 tablet by mouth every 4 hours as needed for pain LORTAB 5-500 MG ORAL TABLET HYDROCODONE- ACETAMINOPHEN Inactive LAMISIL 250 MG ORAL TABLET 1 po qd LAMISIL 250 MG ORAL TABLET 779648 TERBINAFINE HCL Inactive VENLAFAXINE HCL 37.5 MG ORAL TABLET 1 po BID VENLAFAXINE HCL 37.5 MG ORAL TABLET 152885 VENLAFAXINE HCL Inactive CIPRO 500 MG ORAL TABLET 1 tablet by mouth twice daily CIPRO 500 MG ORAL TABLET 743644 CIPROFLOXACIN HCL Inactive VENLAFAXINE HCL 75 MG ORAL TABLET 1 po BID VENLAFAXINE HCL 75 MG ORAL TABLET 938731 VENLAFAXINE HCL Inactive SIMVASTATIN 40 MG ORAL TABLET Take one by mouth daily SIMVASTATIN 40 MG ORAL TABLET 554493 SIMVASTATIN Inactive OMEPRAZOLE 20 MG ORAL TABLET DELAYED RELEASE 1 PO 30 MIN BEFORE 1ST MEAL 2010 OMEPRAZOLE 20 MG ORAL TABLET DELAYED RELEASE 543820 OMEPRAZOLE Inactive FENOFIBRATE 145 MG ORAL TABLET 1 po qd FENOFIBRATE 145 MG ORAL TABLET 775302 FENOFIBRATE Inactive BACTRIM DS 800-160 MG ORAL TABLET 1 bid x 14 day start 09-28-13 BACTRIM DS 800-160 MG ORAL TABLET 627499 SULFAMETHOXAZOLE- TRIMETHOPRIM Inactive B-12 100 MCG ORAL TABLET Take one by mouth daily B-12 100 MCG ORAL TABLET CYANOCOBALAMIN Inactive GABAPENTIN 100 MG ORAL CAPSULE 1 po bid GABAPENTIN 100 MG ORAL CAPSULE 272525 GABAPENTIN Inactive HYDROCODONE-ACETAMINOPHEN 5-325 MG ORAL TABLET 1 tab by mouth every 6 hours as needed for pain HYDROCODONE-ACETAMINOPHEN 5-325 MG ORAL TABLET 292825 HYDROCODONE-ACETAMINOPHEN Inactive CIPRO 500 MG ORAL TABLET 1 bid x 14 days start 09-28-13 CIPRO 500 MG ORAL TABLET 658136 CIPROFLOXACIN HCL Inactive ALIGN 4 MG ORAL [...] SODIUM 50 MG ORAL TABLET DELAYED RELEASE 668549 DICLOFENAC SODIUM Inactive PREDNISONE 20 MG ORAL TABLET 2 tablets once daily for 2 days, then 1 tablet once daily for 2 days PREDNISONE 20 MG ORAL TABLET 102264 PREDNISONE Inactive TRUEDRAW LANCING DEVICE Test twice a day dx 250.0 TRUEDRAW LANCING DEVICE LANCET DEVICES Inactive TRUERESULT BLOOD GLUCOSE w/Device KIT test blood sugar twice daily dx 250.00 TRUERESULT BLOOD GLUCOSE w/Device KIT BLOOD GLUCOSE MONITORING SUPPL Inactive FLONASE 50 MCG/ACT NASAL SUSPENSION 1 spray each nostril twice daily until bottle empty FLONASE 50 MCG/ACT NASAL SUSPENSION 9892902 FLUTICASONE PROPIONATE Inactive VENTOLIN HFA 108 (90 Base) MCG/ACT INHALATION AEROSOL SOLUTION 1-2 puffs every 4 hours if needed for cough/congestion VENTOLIN HFA 108 (90 Base) MCG/ACT INHALATION AEROSOL SOLUTION ALBUTEROL SULFATE Inactive REQUIP 2 MG ORAL TABLET Take one tablet at bedtime prn REQUIP 2 MG ORAL TABLET 484636 ROPINIROLE HCL Inactive SUPER B COMPLEX/VITAMIN C ORAL TABLET 1 qd SUPER B COMPLEX/VITAMIN C ORAL TABLET 18561821678 B COMPLEX-C Inactive TRUEDRAW LANCING DEVICE test blood sugar twice daily dx: 250.00 TRUEDRAW LANCING DEVICE LANCET DEVICES Inactive TRUETEST TEST IN VITRO STRIP test blood sugar twice daily. DX 250.0 TRUETEST TEST IN VITRO STRIP GLUCOSE BLOOD Inactive CYCLOBENZAPRINE HCL 10 MG ORAL TABLET 1 po TID PRN Muscle Spasm CYCLOBENZAPRINE HCL 10 MG ORAL TABLET 776985 CYCLOBENZAPRINE HCL Inactive DICLOFENAC SODIUM 50 MG ORAL TABLET DELAYED RELEASE 1 po BID PRN Pain DICLOFENAC SODIUM 50 MG ORAL TABLET DELAYED RELEASE 371276 DICLOFENAC SODIUM Inactive DICLOFENAC SODIUM 75 MG ORAL TABLET DELAYED RELEASE 1 po BID PRN Pain DICLOFENAC SODIUM 75 MG ORAL TABLET DELAYED RELEASE 342038 DICLOFENAC SODIUM Inactive NASONEX 50 MCG/ACT NASAL SUSPENSION 2 actuations in each nostril q day 07/15 NASONEX 50 MCG/ACT NASAL SUSPENSION 6059799 MOMETASONE FUROATE Inactive GUAIFENESIN ER 600 MG ORAL TABLET EXTENDED RELEASE 12 HOUR 1 twice a day as needed for congestion GUAIFENESIN ER 600 MG ORAL TABLET EXTENDED RELEASE 12 HOUR GUAIFENESIN Inactive AZITHROMYCIN 250 MG ORAL TABLET 2 po qd x 1, then 1 po qd x 4 AZITHROMYCIN 250 MG ORAL TABLET 493309 AZITHROMYCIN Inactive PROMETHAZINE-CODEINE 6.25-10 MG/5ML ORAL SYRUP 5ml po q6hr PRN Cough PROMETHAZINE-CODEINE 6.25-10 MG/5ML ORAL SYRUP 148908 PROMETHAZINE-CODEINE Inactive TRIAMCINOLONE ACETONIDE 0.1 % EXTERNAL OINTMENT Apply to affected areas TID for up to 2 weeks TRIAMCINOLONE ACETONIDE 0.1 % EXTERNAL OINTMENT 7791955 TRIAMCINOLONE ACETONIDE Inactive PREDNISONE 20 MG ORAL TABLET 2 tabs daily for 3 days, 1 tab daily for 3 days, 1/2 tab daily for 2 days PREDNISONE 20 MG ORAL TABLET 828747 PREDNISONE Inactive PREDNISONE 20 MG ORAL TABLET 2 tabs daily for 3 days, 1 tab daily for 3 days, 1/2 tab daily for 2 days PREDNISONE 20 MG ORAL TABLET 048280 PREDNISONE Inactive BACTRIM DS 800-160 MG ORAL TABLET 1 po BID x 7 days BACTRIM DS 800-160 MG ORAL TABLET 300156 SULFAMETHOXAZOLE-TRIMETHOPRIM Inactive ZITHROMAX 250 MG ORAL TABLET 2 po today, then 1 po q days 2-5 ZITHROMAX 250 MG ORAL TABLET 101105 AZITHROMYCIN Inactive PREDNISONE 20 MG ORAL TABLET 2 po qd x 5 days PREDNISONE 20 MG ORAL TABLET 721018 PREDNISONE Inactive Advance Directives Directive Description Start Date DISCUSSED WITH PATIENT -- NO DECISION MADE Immunizations Vaccine Administration Date Value Standard Description Seasonal influenza vaccine, injectable, containing preservative, for > 3 years old (Afluria, FluLaval, Fluzone, Fluvirin, Fluarix, Agriflu(>=18 yo)) Fluzone (>3 yrs.) [[id number]] Influenza, seasonal, injectable influenza immunization (Flu Vax) has been administered 02/22/2012 influenza virus vaccine, unspecified formulation Seasonal influenza vaccine, injectable, containing preservative, for > 3 years old (Afluria, FluLaval, Fluzone, Fluvirin, Fluarix, Agriflu(>=18 yo)) Fluzone (>3 yrs.) [[id number]] Influenza, seasonal, injectable Vital Signs Date Name [...] ... - Chemistry sodium, serum 141 mmol/L 860-663 2334/01/16 carbon dioxide, venous blood 28.3 mmol/L 21.0-32.0 [...] 6.7 % 4.3-6.0 cholesterol, serum 106 mg/dL 375-573 2723/01/16 triglyceride, serum, fasting 173 mg/dL 30-200 HDL [...] 4.3-6.0 Encounters Code Encounter Date Provider Facility CPT-49863 Level 3 Est. Patient 10:13:19 REJOGGER Lesli Kellogg APRN [facility] CPT-67262 Level 4 Est. Patient 13:42:02 REJOGGER Tu Landeros MD [facility] CPT-38846 Level 3 Est. Patient 14:20:36 CDT Tu Landeros MD [facility] CPT-54259 Level 4 Est. Patient 14:28:34 CDT Tu Landeros MD [facility] CPT-93051 Level 3 Est. Patient 13:33:09 CDT Tu Landeros MD [facility] CPT-08983 Level 4 Est. Patient 14:29:21 CDT Tu Landeros MD [facility] CPT-29239 Level 4 Est. Patient 09:08:17 REJOGGER Tu Landeros MD [facility] CPT-83518 Level 4 Est. Patient 14:40:19 CDT Tu Landeros MD [facility] CPT-19816 Level 4 Est. Patient 14:06:04 REJOGGER Tu Landeros MD [facility] CPT-19018 Level 3 Est. Patient 14:05:18 REJOGGER Tu Landeros MD [facility] CPT-73932 Level 3 Est. Patient 10:06:54 REJOGGER Miranda Farah APRN [facility] CPT-36551 Level 4 Est. Patient 13:50:18 REJOGGER Tu Landeros MD [facility] CPT-97757 Level 3 Est. Patient 10:30:04 CDT Tu Landeros MD [facility] CPT-53179 Level 4 Est. Patient 11:03:38 CDT Tu Landeros MD [facility] CPT-58100 Level 3 Est. Patient 10:20:44 CDT Fab Morales DO [facility] CPT-28210 Level 4 Est. Patient 14:38:57 CDT Tu Landeros MD [facility] CPT-89319 Level 4 Est. Patient 14:27:39 REJOGGER Tu Landeros MD [facility] CPT-64008 Level 4 Est. Patient 09:45:25 CDT Tu Landeros MD [facility] CPT-70433 Level 4 Est. Patient 09:05:20 REJOGGER Tu Landeros MD [facility] CPT-85065 Level 4 Est. Patient 14:09:06 CDT Tu Landeros MD [facility] CPT-54255 Level 3 Est. Patient 13:36:54 CDT Tu Landeros MD [facility] CPT-97044 Level 3 Est. Patient 08:59:14 CDT Tu Landeros MD [facility] CPT-31625 Level 3 Est. Patient 13:48:35 CDT Fab Morales DO [facility] CPT-28274 Level 4 Est. Patient 10:05:48 CDT Tu Landeros MD [facility] CPT-14673 Level 3 Est. Patient 13:38:42 CDT Marek BANKS [facility] CPT-80480 Level 5 Est. Patient 08:08:39 CDT Jerrica FRANCIS [facility] CPT-94194 Level 4 Est. Patient 14:23:38 CDT Tu Landeros MD [facility] CPT-58685 Level 3 Est. Patient 11:44:04 CDT Tu Landeros MD [facility] CPT-62843 Level 3 Est. Patient 11:03:20 REJOGGER Tu Landeros MD [facility] CPT-66357 Level 3 Est. Patient 11:03:14 REJOGGER Tu Landeros MD [facility] CPT-25782 Level 3 Est. Patient 12:42:49 CDT Tu Landeros MD [facility] CPT-03766 Level 3 Est. Patient 11:52:06 CDT Tu Landeros MD [facility] CPT-28468 Level 3 Est. Patient 13:58:11 CDT Tu Landeros MD [facility] CPT-44517 Level 3 Est. Patient 17:50:07 CDT Fab Morales DO [facility] CPT-84124 Level 3 Est. Patient 12:06:29 CDT Elvira Cervantes MD [facility] CPT-54037 Level 3 Est. Patient 15:50:32 CDT Tu Landeros MD [facility] CPT-16612 Level 4 Est. Patient 16:08:29 CDT Tu Landeros MD [facility] CPT-95722 Level 3 Est. Patient 16:04:19 CDT Tu Landeros MD [facility] CPT-81313 Level 3 Est. Patient 11:22:30 REJOGGER Tu Landeros MD [facility] CPT-33690 Level 4 Est. Patient 16:24:02 REJOGGER Tu Landeros MD [facility] CPT-23718 Level 3 Est. Patient 17:21:23 REJOGGER Tu Landeros MD [facility] Procedures Code Procedure Name Date Entry Date Standard Description CPT-38343 Shoulder, right, comp min 2V - XRAY USE ONLY 13:50:22 CDT CPT-G0009 Administration of Pneumococcal Vaccine 15:08:26 CDT CPT-01794 Prevnar 13 Intramuscular Suspension 15:08:26 CDT 10/08 CPT-G0439 [facility] Annual Wellness Exam 14:29:22 CDT CPT-36436 Venipuncture Draw Fee 13:15:35 CDT CPT-15153 Magnesium - LAB USE ONLY 11:14:20 REJOGGER CPT-21121 Lipid - LAB USE ONLY 11:14:20 REJOGGER CPT-46611 HGBA1C - LAB USE ONLY 11:14:20 REJOGGER CPT-15191 CMP - LAB USE ONLY 11:14:19 REJOGGER CPT-91820 CBC - LAB USE ONLY 11:14:19 REJOGGER CPT-09278 Venipuncture Draw Fee 11:14:18 REJOGGER CPT-84523 First Vx - Ix admin for Medicare patients 16:46:52 CDT CPT-59177 Fluzone Preservative Free Intramuscular Suspension 16:46 :51 CDT CPT-31615 CBC - LAB USE ONLY 17:14:46 CDT CPT-77878 HGBA1C - LAB USE ONLY 17:14:46 CDT CPT-38870 Venipuncture Draw Fee 17:14:46 CDT CPT-G0438 Initial Annual Wellness Exam 14:13:04 CDT CPT-77338 Breathing Tx 10:06:54 REJOGGER CPT-07206 Postop F/U Visit 10:02:45 CDT CPT-LR Lesion Removal 09:02:56 CDT CPT-JTINJ Asp/Joint Injection 15:51:27 REJOGGER CPT-OV Office Visit 15:52:02 REJOGGER CPT-OV Office Visit 15:45:11 CDT CPT-000 Give Zostavax 14:09:06 CDT CPT-64930 Administration single or combination vaccine inc oral 15 :19:04 CDT CPT-67950 Zoster Vaccine (Zostavax) 15:19:04 CDT CPT-31792 Administration single or combination vaccine inc oral 20 :51:03 CDT CPT-93979 Influenza split virus > age 3 20:51:03 CDT CPT-37895 No Charge Offi Visit 14:52:03 CDT CPT-OV Office Visit 14:57:43 CDT CPT-OV Office Visit 15:22:32 CDT CPT-34004 Administration single or combination vaccine inc oral 11 :33:15 CDT CPT-33790 Influenza split virus > age 3 11:33:15 CDT
--- OUTSIDE RECORDS SUMMARY | 2018-04-25 15:52 | XMS REPORT | Clinical Summary ---
Author Author Admin, SACHI Organization [employer] Address Unknown Phone Unavailable Allergies, Adverse Reactions, [...] Cervantes MD PhD HEALTH SCREENING ICD-V70.0 Inactive Elviar Cervantes MD PhD 2011 INSOMNIA, PERSISTENT ICD-307.42 Inactive Tu Landeros MD GASTROENTERITIS ICD-558.9 Inactive Tu Landeros MD DIZZINESS ICD-780.4 Inactive Tu Landeros MD BENIGN PAROXYSMAL POSITIONAL VERTIGO ICD-386.11 Inactive Tu Landeros MD LEG CRAMPS, NOCTURNAL ICD-729.82 Inactive uT Landeros MD FREQUENCY, URINARY ICD-788.41 Inactive Elvira [...] MG TABS 1 po BID VENLAFAXINE HCL 87499764426 Active Tu Landeros MD Active GABAPENTIN 100 MG CAPS 1 po BID GABAPENTIN 71523174655 Active José Luis Becerra MD Active REQUIP 2 MG TABS Take one tablet at bedtime prn ROPINIROLE HCL 46472186819 No Longer Active Tu Landeros MD Active VENTOLIN HFA 108 (90 BASE) MCG/ACT AERS 1-2 puffs every 4 hours if needed for cough/congestion ALBUTEROL SULFATE 79158915063 No Longer Active mAbika Aden APRN Active ZITHROMAX 250 MG TAB 2 po today, then 1 po q days 2-5 AZITHROMYCIN 16847108468 No Longer Active Miranda Suresh APRN Active METFORMIN HCL 1000 MG TABS 1 tablet by mouth twice daily METFORMIN HCL 18683018932 Active Tu Landeros MD Active FLONASE 50 MCG/ACT SUSP 1 spray each nostril twice daily until bottle empty FLUTICASONE PROPIONATE 66872491589 No Longer Active Tu Landeros MD Active COLACE 100 MG CAP 1 po BID PRN Constipation DOCUSATE SODIUM 32719120925 Active Tu Landeros MD Active SIMVASTATIN 40 MG TABS 0.5 tab daily at bedtime SIMVASTATIN 28787533537 Active Tu Landeros MD Active TRUERESULT BLOOD GLUCOSE W/DEVICE KIT test blood sugar twice daily dx 250.00 BLOOD GLUCOSE MONITORING SUPPL 61157368903 No Longer Active Tu Landeros MD Active TRUEDRAW LANCING DEVICE MISC Test twice a day dx 250.0 LANCET DEVICES 77322673796 No Longer Active Tu Landeros MD Active PREDNISONE 20 MG TAB 2 tablets once daily for 2 days, then 1 tablet once daily for 2 days PREDNISONE 04535262996 No Longer Active Tu Landeros MD Active DICLOFENAC SODIUM 50 MG TBEC 1 tablet by mouth three times a day as needed DICLOFENAC SODIUM 94930009612 No Longer Active Fab Morales DO Active TRUEDRAW LANCING DEVICE MISC test blood sugar twice daily dx: 250.00 LANCET DEVICES 21936286419 Active Tu Landeros MD Active TRUETEST TEST INVITR STRP test blood sugar twice daily. DX 250.0 GLUCOSE BLOOD 42378843027 Active Tu Landeros MD Active EMBRACE BLOOD GLUCOSE TEST STRP test blood sugar twice daily DX 250.0 2014 GLUCOSE BLOOD 43982094457 No Longer Active Tu Landeros MD Active TRUETEST TEST STRP test blood sugar three times daily dx: 250.00 GLUCOSE BLOOD 82318193634 No Longer Active Suze Corey VOEGL Active TRUERESULT BLOOD GLUCOSE W/DEVICE KIT use to test blood sugar tid dx: 250.00 BLOOD GLUCOSE MONITORING SUPPL 27384709828 No Longer Active Suze Corey RMA Active ALIGN 4 MG CAPS 1 tid PROBIOTIC PRODUCT 52545916715 No Longer Active Shaun Sy MD Active CIPRO 500 MG TABS 1 bid x 14 days start 09-28-13 CIPROFLOXACIN HCL 30104594924 No Longer Active Shaun Sy MD Active TRAMADOL HCL 50 MG TABS 1-2 tablets every 6 hours as needed for pain TRAMADOL HCL 73703887174 Active Tu Landeros MD Active HYDROCODONE-ACETAMINOPHEN 5-325 MG TABS 1 tab by mouth every 6 hours as needed for pain HYDROCODONE-ACETAMINOPHEN 85748237302 No Longer Active Tu Landeros MD Active OMEPRAZOLE 20 MG CPDR 1 po q a.m. OMEPRAZOLE 21342757857 Active Tu Landeros MD Active GABAPENTIN 100 MG CAPS 1 po bid GABAPENTIN 69213231242 No Longer Active Tu Landeros MD Active B-12 100 MCG TABS Take one by mouth daily CYANOCOBALAMIN 22518628650 No Longer Active Tu Landeros MD Active BACTRIM DS 800-160 MG TABS 1 bid x 14 day start 09-28-13 SULFAMETHOXAZOLE-TRIMETHOPRIM 06267440040 No Longer Active Tu Landeros MD Active CARVEDILOL 12.5 MG TABS 1 po BID CARVEDILOL 98663368531 Active Tu Landeros MD Active SUPER B COMPLEX/VITAMIN C TABS 1 qd B COMPLEX-C 30766813861 Active JASPREET Perez Active TRILIPIX 135 MG CPDR 1 q hs CHOLINE FENOFIBRATE 05406147979 Active Tu Landeros MD Active FENOFIBRATE 145 MG TABS 1 po qd FENOFIBRATE 52144197485 No Longer Active JASPREET Perez Active OMEPRAZOLE 20 MG TBEC 1 PO 30 MIN BEFORE 1ST MEAL OMEPRAZOLE 36187144291 No Longer Active JASPREET Perez Active SIMVASTATIN 40 MG TABS Take one by mouth daily SIMVASTATIN 94911896811 No Longer Active JASPREET Perez Active VENLAFAXINE HCL 75 MG TABS 1 po BID VENLAFAXINE HCL 31825565572 No Longer Active JASPREET Perez Active CIPRO 500 MG TAB 1 tablet by mouth twice daily CIPROFLOXACIN HCL 88489500097 No Longer Active Tu Landeros MD Active VENLAFAXINE HCL 37.5 MG TABS 1 po BID VENLAFAXINE HCL 44850964412 No Longer Active Suze Nicole RMA Active LAMISIL 250 MG TAB 1 po qd TERBINAFINE HCL 94365936545 No Longer Active Tu Landeros MD Active LORTAB 5 5-500 MG TABS 1/2 to 1 tablet by mouth every 4 hours as needed for pain HYDROCODONE-ACETAMINOPHEN 20565701436 No Longer Active Tu Landeros MD Active ENALAPRIL MALEATE 20 MG TABS 1.5 po qd ENALAPRIL MALEATE 71676824846 Active Tu Landeros MD Active HYDROCODONE-ACETAMINOPHEN 5-500 MG TABS take one po Q 4-6 hours prn HYDROCODONE-ACETAMINOPHEN 01820581160 No Longer Active Tu Landeros MD Active BACTRIM DS 800-160 MG TABS 1 po BID x 7 days SULFAMETHOXAZOLE-TRIMETHOPRIM 09229129170 No Longer Active Tu Landeros MD Active VENLAFAXINE HCL 75 MG TABS 1 po BID VENLAFAXINE HCL 24422408190 No Longer Active Elvira Cervantes MD PhD Active TRAMADOL HCL 50 MG TABS 1 tablets every 6 hours as needed for pain TRAMADOL HCL 51073307047 No Longer Active Tu Landeros MD Active ACCU-CHEK FASTCLIX LANCETS MISC Use to check bloodsugar three times daily as needed LANCETS 51284579097 No Longer Active Tu Landeros MD Active ACCU-CHEK KEYONA PLUS STRP Use for testing bloodsugars three times daily as needed GLUCOSE BLOOD 64615886991 No Longer Active Tu Landeros MD Active ACCU-CHEK KEYONA PLUS W/DEVICE KIT Use for testing bloodsugars three times daily as needed BLOOD GLUCOSE MONITORING SUPPL 56923612306 No Longer Active Tu Landeros MD Active SPIRONOLACTONE 25 MG TAB 0.5 tablet by mouth daily SPIRONOLACTONE 46328589644 No Longer Active Tu Landeros MD Active ALPRAZOLAM 0.5 MG TABS 1 tab every 6hrs as needed ALPRAZOLAM 94162622397 No Longer Active Tu Landeros MD Active AUGMENTIN 875-125 MG TAB 1 tab by mouth twice daily with food AMOXICILLIN-POT CLAVULANATE 49027226072 No Longer Active Tu Landeros MD Active PREDNISONE 20 MG TAB 2 tabs daily for 3 days, 1 tab daily for 3 days, 1/2 tab daily for 2 days PREDNISONE 23361232877 No Longer Active Tu Landeros MD Active XANAX 0.5 MG TABS 1 tablet every 6 hrs prn ALPRAZOLAM 39855635445 No Longer Active Tu Landeros MD Active PREDNISONE 20 MG TAB 2 tabs daily for 3 days, 1 tab daily for 3 days, 1/2 tab daily for 2 days PREDNISONE 09899412444 No Longer Active Tu Landeros MD Active TRIAMCINOLONE ACETONIDE 0.1 % OINT Apply to affected areas TID for up to 2 weeks TRIAMCINOLONE ACETONIDE 88597166634 No Longer Active Tu Landeros MD Active LORTAB 5 5-500 MG TABS 1/2 to 1 tablet by mouth every 4 hours as needed for pain HYDROCODONE-ACETAMINOPHEN 59378133338 No Longer Active Tu Landeros MD Active MULTIVITAMINS TABS Take one by mouth daily MULTIPLE VITAMIN 15742326412 No Longer Active Tu Landeros MD Active MELATONIN 5 MG TABS Take one by mouth daily MELATONIN 11416175551 No Longer Active Tu Landeros MD Active SOMA 350 MG TAB 1 po q 6 hours prn spasm CARISOPRODOL 98921012032 No Longer Active Tu aLnderos MD Active MECLIZINE HCL 25 MG CHEW TAB 1 four times a day as needed for dizziness 08/05 MECLIZINE HCL 00776309532 No Longer Active Fab Morales DO Active ANGEL BREEZE 2 TEST DISK test tid prn GLUCOSE BLOOD 43623630739 No Longer Active Negra Scott RN Active REGLAN 10 MG TAB 1 po TID PRN [place] METOCLOPRAMIDE HCL 37693571727 No Longer Active Tu Landeros MD Active METFORMIN HCL 500 MG TABS 1 PO BID METFORMIN HCL 18007115293 No Longer Active Tu Landeros MD Active AMBIEN 10 MG TAB 1 tab by mouth at bedtime as needed for sleep ZOLPIDEM TARTRATE 86149633957 No Longer Active Tu Landeros MD Active FLUOXETINE HCL 40 MG CAPS 1 po q day FLUOXETINE HCL 10023791482 No Longer Active Mayra Fieldsarger Active FISH OIL 1000 MG CAPS Take one by mouth daily OMEGA-3 FATTY ACIDS 71337620168 Active Tu Landeros MD Active GLUCOSAMINE 500 MG TABS Take 2 tab po qd GLUCOSAMINE 65883096305 Active Tu Landeros MD Active TRILIPIX 135 MG CPDR 1 po qd CHOLINE FENOFIBRATE 70562531425 No Longer Active Tu Landeros MD Active ASPIRIN 81 MG CHEW TAB 1 tablet by mouth daily ASPIRIN 68269621661 Active Tu Landeros MD Active FUROSEMIDE 40 MG TAB 1 tablet by mouth daily FUROSEMIDE 40735327405 Active Tu Landeros MD Active KLOR-CON 10 10 MEQ CR-TABS TAKE 2 TABS DAILY POTASSIUM CHLORIDE 80968884910 Active Tu Landeros MD Active AMBIEN 10 MG TAB 1 tab by mouth at bedtime as needed for sleep AMBIEN 10 MG TAB 204969 ZOLPIDEM TARTRATE Inactive METFORMIN HCL 500 MG TABS 1 PO BID METFORMIN HCL 500 MG TABS 978866 METFORMIN HCL Inactive REGLAN 10 MG TAB 1 po TID PRN Nausea REGLAN 10 MG TAB 022541 METOCLOPRAMIDE HCL Inactive MECLIZINE HCL 25 MG CHEW TAB 1 four times a day as needed for dizziness 08/05 MECLIZINE HCL 25 MG CHEW TAB 502999 MECLIZINE HCL Inactive SOMA 350 MG TAB 1 po q 6 hours prn spasm SOMA 350 MG TAB 021768 CARISOPRODOL Inactive MELATONIN 5 MG TABS Take one by mouth daily MELATONIN 5 MG TABS 528334 MELATONIN Inactive MULTIVITAMINS TABS Take one by mouth daily MULTIVITAMINS TABS MULTIPLE VITAMIN Inactive LORTAB 5 5-500 MG TABS 1/2 to 1 tablet by mouth every 4 hours as needed for pain LORTAB 5 5-500 MG TABS HYDROCODONE- ACETAMINOPHEN Inactive XANAX 0.5 MG TABS 1 tablet every 6 hrs prn XANAX 0.5 MG TABS 604750 ALPRAZOLAM Inactive AUGMENTIN 875-125 MG TAB 1 tab by mouth twice daily with food AUGMENTIN 875-125 MG TAB 471326 AMOXICILLIN-POT CLAVULANATE Inactive ALPRAZOLAM 0.5 MG TABS 1 tab every 6hrs as needed ALPRAZOLAM 0.5 MG TABS 577195 ALPRAZOLAM Inactive SPIRONOLACTONE 25 MG TAB 0.5 tablet by mouth daily SPIRONOLACTONE 25 MG TAB 752276 SPIRONOLACTONE Inactive ACCU-CHEK KEYONA PLUS W/DEVICE KIT Use for testing bloodsugars three times daily as needed ACCU-CHEK KEYONA PLUS W/DEVICE KIT BLOOD GLUCOSE MONITORING SUPPL Inactive ACCU-CHEK KEYONA PLUS STRP Use for testing bloodsugars three times daily as needed ACCU-CHEK KEYONA PLUS STRP GLUCOSE BLOOD Inactive ACCU-CHEK FASTCLIX LANCETS MISC Use to check bloodsugar three times daily as needed ACCU-CHEK FASTCLIX LANCETS MISC 06014185626 [facility] Inactive TRAMADOL HCL 50 MG TABS 1 tablets every 6 hours as needed for pain TRAMADOL HCL 50 MG TABS 056250 TRAMADOL HCL Inactive VENLAFAXINE HCL 75 MG TABS 1 po BID VENLAFAXINE HCL 75 MG TABS 246144 VENLAFAXINE HCL Inactive HYDROCODONE-ACETAMINOPHEN 5-500 MG TABS take one po Q 4-6 hours prn HYDROCODONE-ACETAMINOPHEN 5-500 MG TABS HYDROCODONE- ACETAMINOPHEN Inactive LORTAB 5 5-500 MG TABS 1/2 to 1 tablet by mouth every 4 hours as needed for pain LORTAB 5 5-500 MG TABS HYDROCODONE- ACETAMINOPHEN Inactive LAMISIL 250 MG TAB 1 po qd LAMISIL 250 MG TAB 147389 TERBINAFINE HCL Inactive VENLAFAXINE HCL 37.5 MG TABS 1 po BID VENLAFAXINE HCL 37.5 MG TABS 453929 VENLAFAXINE HCL Inactive CIPRO 500 MG TAB 1 tablet by mouth twice daily CIPRO 500 MG TAB 503728 CIPROFLOXACIN HCL Inactive VENLAFAXINE HCL 75 MG TABS 1 po BID VENLAFAXINE HCL 75 MG TABS 620190 VENLAFAXINE HCL Inactive SIMVASTATIN 40 MG TABS Take one by mouth daily SIMVASTATIN 40 MG TABS 456021 SIMVASTATIN Inactive OMEPRAZOLE 20 MG TBEC 1 PO 30 MIN BEFORE 1ST MEAL OMEPRAZOLE 20 MG TBEC 628921 OMEPRAZOLE Inactive FENOFIBRATE 145 MG TABS 1 po qd FENOFIBRATE 145 MG TABS 916827 FENOFIBRATE Inactive BACTRIM DS 800-160 MG TABS 1 bid x 14 day start 09-28-13 BACTRIM DS 800-160 MG TABS 639481 SULFAMETHOXAZOLE-TRIMETHOPRIM Inactive B-12 100 MCG TABS Take one by mouth daily B-12 100 MCG TABS CYANOCOBALAMIN Inactive GABAPENTIN 100 MG CAPS 1 po bid GABAPENTIN 100 MG CAPS 556296 GABAPENTIN Inactive HYDROCODONE-ACETAMINOPHEN 5-325 MG TABS 1 tab by mouth every 6 hours as needed for pain HYDROCODONE-ACETAMINOPHEN 5-325 MG TABS 572429 HYDROCODONE-ACETAMINOPHEN Inactive CIPRO 500 MG TABS 1 bid x 14 days start -814 CIPRO 500 MG TABS 855290 CIPROFLOXACIN HCL Inactive ALIGN 4 MG CAPS [...] as needed DICLOFENAC SODIUM 50 MG TBEC 628494 DICLOFENAC SODIUM Inactive PREDNISONE 20 MG TAB 2 tablets once daily for 2 days, then 1 tablet once daily for 2 days PREDNISONE 20 MG TAB 438122 PREDNISONE Inactive TRUEDRAW LANCING DEVICE MISC Test [...] at bedtime prn REQUIP 2 MG TABS 845397 ROPINIROLE HCL Inactive TRIAMCINOLONE ACETONIDE 0.1 % OINT Apply to affected areas TID for up to 2 weeks TRIAMCINOLONE ACETONIDE 0.1 % OINT 9186509 TRIAMCINOLONE ACETONIDE Inactive PREDNISONE 20 MG TAB 2 tabs daily for 3 days, 1 tab daily for 3 days, 1/2 tab daily for 2 days PREDNISONE 20 MG TAB 195250 PREDNISONE Inactive PREDNISONE 20 MG TAB 2 tabs daily for 3 days, 1 tab daily for 3 days, 1/2 tab daily for 2 days PREDNISONE 20 MG TAB 312952 PREDNISONE Inactive BACTRIM DS 800-160 MG TABS 1 po BID x 7 days BACTRIM DS 800-160 MG TABS 700774 SULFAMETHOXAZOLE-TRIMETHOPRIM Inactive ZITHROMAX 250 MG TAB 2 po today, then 1 po q days 2-5 ZITHROMAX 250 MG TAB 6369646 AZITHROMYCIN Inactive Advance Directives Directive Description Start Date DISCUSSED WITH PATIENT -- NO DECISION MADE Immunizations Vaccine Administration Date Value Standard Description Seasonal influenza vaccine, injectable, containing preservative, for > 3 years old (Afluria, FluLaval, Fluzone, Fluvirin, Fluarix, Agriflu(>=18 yo)) Fluzone (>3 yrs.) [[id number]] Influenza, seasonal, injectable influenza immunization (Flu Vax) has been administered 02/22/2012 influenza virus vaccine, unspecified formulation Seasonal influenza vaccine, injectable, containing preservative, for > 3 years old (Afluria, FluLaval, Fluzone, Fluvirin, Fluarix, Agriflu(>=18 yo)) Fluzone (>3 yrs.) [[id number]] Influenza, seasonal, injectable Vital Signs Date Name Value Unit Range Description blood pressure, diastolic, supine 82 mm[Hg] BP ac blood pressure, systolic, supine E&M 152 mm[Hg] BP sys pulse rate E&M - 8867-4 60 /min Heart rate temperature E&M 97.1 [degF] Body temperature weight E&M - 3141-9 315.50 [lb_av] Weight Measured blood pressure, diastolic - 8462-4 78 mm[Hg] BP ca blood pressure, systolic - 8480-6 151 mm[Hg] [...] 7.4 % 4.3-6.0 sodium, serum 140 mmol/L 226-117 7458/09/07 potassium, serum 4.3 mmol/L 3.5-5.2 chloride, serum 104 mmol/L 98-107 carbon dioxide, venous blood 27.7 mmol/L 21.0-32.0 blood glucose 156 mg/dL 65-110 calcium, serum 9.3 mg/dL 8.5-10.1 urea nitrogen, blood 23 mg/dL 7-18 creatinine, serum 1.21 mg/dL 0.55-1.30 Lab Report: Lipid Panel, Comp. Metabolic Panel - Chemistry cholesterol, serum 124 mg/dL 033-660 2030/01/12 triglyceride, serum, fasting 135 mg/dL 30-200 HDL cholesterol, serum 41 mg/dL 32-96 LDL cholesterol, serum 56 mg/dL 0-130 sodium, serum 140 mmol/L 619-098 8473/01/12 carbon dioxide, venous blood 27.7 mmol/L 21.0-32.0 potassium, serum 4.5 mmol/L 3.5-5.2 chloride, serum 104 mmol/L 98-107 blood glucose 139 mg/dL 65-110 urea nitrogen, blood 16 mg/dL 7-18 alanine aminotransferase (SGPT), serum 32 U/L 12-78 aspartate aminotransferase (SGOT), serum 25 U/L 15-37 calcium, serum 9.1 mg/dL 8.5-10.1 bilirubin, serum, total 0.50 mg/dL 0.00-1.00 Encounters Code Encounter Date Provider Facility CPT-40992 Level 4 Est. Patient 14:40:19 CDT Tu Landeros MD [facility] CPT-39277 Level 4 Est. Patient 14:06:04 TILE DITCHER Tu Landeros MD [facility] CPT-76553 Level 3 Est. Patient 14:05:18 TILE DITCHER Tu Landeros MD [facility] CPT-65723 Level 3 Est. Patient 10:06:54 TILE DITCHER Miranda Suresh APRN [facility] CPT-51609 Level 4 Est. Patient 13:50:18 TILE DITCHER Tu Landeros MD [facility] CPT-17223 Level 3 Est. Patient 10:30:04 CDT Tu Landeros MD [facility] CPT-24414 Level 4 Est. Patient 11:03:38 CDT Tu Landeros MD [facility] CPT-95003 Level 3 Est. Patient 10:20:44 CDT Fab Morales DO [facility] CPT-26969 Level 4 Est. Patient 14:38:57 CDT Tu Landeros MD [facility] CPT-81273 Level 4 Est. Patient 14:27:39 TILE DITCHER Tu Landeros MD [facility] CPT-20132 Level 4 Est. Patient 09:45:25 CDT Tu Landeros MD [facility] CPT-47903 Level 4 Est. Patient 09:05:20 TILE DITCHER Tu Landeros MD [facility] CPT-93174 Level 4 Est. Patient 14:09:06 CDT Tu Landeros MD [facility] CPT-64546 Level 3 Est. Patient 13:36:54 CDT Tu Landeros MD [facility] CPT-66248 Level 3 Est. Patient 08:59:14 CDT Tu Landeros MD [facility] CPT-02893 Level 3 Est. Patient 13:48:35 CDT Fab Morales DO [facility] CPT-28403 Level 4 Est. Patient 10:05:48 CDT Tu Landeros MD [facility] CPT-65877 Level 3 Est. Patient 13:38:42 CDT Marek BANKS [facility] CPT-39014 Level 5 Est. Patient 08:08:39 CDT Jerrica FRANCIS [facility] CPT-08637 Level 4 Est. Patient 14:23:38 CDT Tu Landeros MD [facility] CPT-24071 Level 3 Est. Patient 11:44:04 CDT Tu Landeros MD [facility] CPT-03504 Level 3 Est. Patient 11:03:20 TILE DITCHER Tu Landeros MD [facility] CPT-06955 Level 3 Est. Patient 11:03:14 TILE DITCHER Tu Landeros MD [facility] CPT-12184 Level 3 Est. Patient 12:42:49 CDT Tu Landeros MD [facility] CPT-72852 Level 3 Est. Patient 11:52:06 CDT Tu Landeros MD [facility] CPT-86896 Level 3 Est. Patient 13:58:11 CDT Tu Landeros MD [facility] CPT-70345 Level 3 Est. Patient 17:50:07 CDT Fab Morales DO [facility] CPT-28726 Level 3 Est. Patient 12:06:29 CDT Elvira Cervantes MD PhD [facility] CPT-48268 Level 3 Est. Patient 15:50:32 CDT Tu Landeros MD [facility] CPT-71027 Level 4 Est. Patient 16:08:29 CDT Tu Landeros MD [facility] CPT-72735 Level 3 Est. Patient 16:04:19 CDT Tu Landeros MD [facility] CPT-00162 Level 3 Est. Patient 11:22:30 TILE DITCHER Tu Landeros MD [facility] CPT-36129 Level 4 Est. Patient 16:24:02 TILE DITCHER Tu Landeros MD [facility] CPT-23971 Level 3 Est. Patient 17:21:23 TILE DITCHER Tu Landeros MD [facility] Procedures Code Procedure Name Date Entry Date Standard Description CPT-98033 First Vx - Ix admin for Medicare patients 16:46:52 CDT CPT-98022 Fluzone Preservative Free Intramuscular Suspension 16:46 :51 CDT CPT-38135 CBC - LAB USE ONLY 17:14:46 CDT CPT-35990 HGBA1C - LAB USE ONLY 17:14:46 CDT CPT-00072 Venipuncture Draw Fee 17:14:46 CDT CPT-G0438 Initial Annual Wellness Exam 14:13:04 CDT CPT-54520 Breathing Tx 10:06:54 TILE DITCHER CPT-67389 Postop F/U Visit 10:02:45 CDT CPT-LR Lesion Removal 09:02:56 CDT CPT-JTINJ Asp/Joint Injection 15:51:27 TILE DITCHER CPT-OV Office Visit 15:52:02 TILE DITCHER CPT-OV Office Visit 15:45:11 CDT CPT-000 Give Zostavax 14:09:06 CDT CPT-66537 Administration single or combination vaccine inc oral 15 :19:04 CDT CPT-56098 Zoster Vaccine (Zostavax) 15:19:04 CDT CPT-10067 Administration single or combination vaccine inc oral 20 :51:03 CDT CPT-51757 Influenza split virus > age 3 20:51:03 CDT CPT-74985 No Charge Offi Visit 14:52:03 CDT CPT-OV Office Visit 14:57:43 CDT CPT-OV Office Visit 15:22:32 CDT CPT-11772 Administration single or combination vaccine inc oral 11 :33:15 CDT CPT-67441 Influenza split virus > age 3 11:33:15 CDT
--- OUTSIDE RECORDS SUMMARY | 2018-04-25 15:53 | XMS REPORT | Clinical Summary ---
Author Author Admin, SACHI Organization [place] Address Unknown Phone Unavailable Allergies, Adverse Reactions, [...] ICD-719.46 Tessa Landeros MD Osteoarthritis ICD-715.90 Tessa Landeors MD Ear pain, bilateral ICD-388.70 Tessa Landeros [...] 100 MG CAPS 1 po TID GABAPENTIN 46281571466 Active Tu Landeros MD Active DICLOFENAC SODIUM 50 MG ORAL TBEC 1 po BID PRN Pain DICLOFENAC SODIUM 32089385068 No Longer Active Tu Landeros MD Active CYCLOBENZAPRINE HCL 10 MG ORAL TABS 1 po TID PRN Muscle Spasm CYCLOBENZAPRINE HCL 18703636994 No Longer Active Tu Landeros MD Active INVOKANA 100 MG ORAL TABS 1 po qd CANAGLIFLOZIN 03725939303 Active Tu Landeros MD Active GLIPIZIDE 5 MG ORAL TABS 1 po qd GLIPIZIDE 07986963064 No Longer Active Tu Landeros MD Active VENLAFAXINE HCL 75 MG ORAL TABS 1 po BID VENLAFAXINE HCL 69874626183 Active Tu Landeros MD Active GLIMEPIRIDE 1 MG ORAL TABS 1 po qd GLIMEPIRIDE 90410774294 No Longer Active Tu Landeros MD Active TRUE METRIX BLOOD GLUCOSE TEST INVITR STRP Test blood sugar BID Dx: E11.9 GLUCOSE BLOOD 61528321935 Active Tu Landeros MD Active TRUE METRIX AIR GLUCOSE METER W/DEVICE KIT Test blood glucose BID Dx: E11.9 BLOOD GLUCOSE MONITORING SUPPL 41083999920 Active Tu Landeros MD Active TRUETEST TEST INVITR STRP test blood sugar twice daily. DX 250.0 GLUCOSE BLOOD 26927986943 No Longer Active Mirna Stanley LPN Active TRUEDRAW LANCING DEVICE MISC test blood sugar twice daily dx: 250.00 LANCET DEVICES 42595936776 No Longer Active Mirna Stanley LPN Active ENALAPRIL MALEATE 20 MG TABS 2 po qd ENALAPRIL MALEATE 87885948196 Active Lesli Kellogg APRN Active SUPER B COMPLEX/VITAMIN C TABS 1 qd B COMPLEX-C 16049674001 No Longer Active Tu Landeros MD Active ASPIRIN EC 81 MG ORAL TBEC 1 po qd ASPIRIN 07439537244 Active Tu Landeros MD Active GLUCOSAMINE 500 MG TABS 2 po qd GLUCOSAMINE Active Tu Landeros MD Active SIMVASTATIN 40 MG TABS 0.5 po qHS SIMVASTATIN 03638343275 Active Tu Landeros MD Active FISH OIL 1000 MG CAPS 1 po qd OMEGA-3 FATTY ACIDS 41592178245 Active Tu Landeros MD Active METFORMIN HCL 1000 MG TABS 1 po BID METFORMIN HCL 83759094633 Active Tu Landeros MD Active KLOR-CON 10 10 MEQ CR-TABS 2 po qd POTASSIUM CHLORIDE 17752767114 Active Tu Landeros MD Active FUROSEMIDE 40 MG TAB 1 po qd FUROSEMIDE 98088995313 Active Tu Landeros MD Active REQUIP 2 MG ORAL TABS 1 po qHS PRN Restless legs ROPINIROLE HCL 25481464181 Active Tu Landeros MD Active REQUIP 2 MG TABS Take one tablet at bedtime prn ROPINIROLE HCL 67503616306 No Longer Active Tu Landeros MD Active VENTOLIN HFA 108 (90 BASE) MCG/ACT AERS 1-2 puffs every 4 hours if needed for cough/congestion ALBUTEROL SULFATE 32686730075 No Longer Active Ambika Aden APRN Active ZITHROMAX 250 MG TAB 2 po today, then 1 po q days 2-5 AZITHROMYCIN 83337749366 No Longer Active Miranda Suresh APRN Active FLONASE 50 MCG/ACT SUSP 1 spray each nostril twice daily until bottle empty FLUTICASONE PROPIONATE 52572203762 No Longer Active Tu Landeros MD Active COLACE 100 MG CAP 1 po BID PRN Constipation DOCUSATE SODIUM 80495296833 Active Tu Landeros MD Active TRUERESULT BLOOD GLUCOSE W/DEVICE KIT test blood sugar twice daily dx 250.00 BLOOD GLUCOSE MONITORING SUPPL 03323789458 No Longer Active Tu Landeros MD Active TRUEDRAW LANCING DEVICE MISC Test twice a day dx 250.0 LANCET DEVICES 54826303287 No Longer Active Tu Landeros MD Active PREDNISONE 20 MG TAB 2 tablets once daily for 2 days, then 1 tablet once daily for 2 days PREDNISONE 83774321928 No Longer Active Tu Landeros MD Active DICLOFENAC SODIUM 50 MG TBEC 1 tablet by mouth three times a day as needed DICLOFENAC SODIUM 89197626774 No Longer Active Fab Morales DO Active EMBRACE BLOOD GLUCOSE TEST STRP test blood sugar twice daily DX 250.0 2014 GLUCOSE BLOOD 22202889848 No Longer Active Tu Landeros MD Active TRUETEST TEST STRP test blood sugar three times daily dx: 250.00 GLUCOSE BLOOD 91592448357 No Longer Active Suze Corey RMA Active TRUERESULT BLOOD GLUCOSE W/DEVICE KIT use to test blood sugar tid dx: 250.00 BLOOD GLUCOSE MONITORING SUPPL 81161060755 No Longer Active Suze Corey RMA Active ALIGN 4 MG CAPS 1 tid PROBIOTIC PRODUCT 08480495632 No Longer Active Shaun Sy MD Active CIPRO 500 MG TABS 1 bid x 14 days start 09-28-13 CIPROFLOXACIN HCL 70234272371 No Longer Active Shaun Sy MD Active TRAMADOL HCL 50 MG TABS 1-2 tablets every 6 hours as needed for pain TRAMADOL HCL 01770370917 Active Tu Landeros MD Active HYDROCODONE-ACETAMINOPHEN 5-325 MG TABS 1 tab by mouth every 6 hours as needed for pain HYDROCODONE-ACETAMINOPHEN 61491329999 No Longer Active Tu Landeros MD Active OMEPRAZOLE 20 MG CPDR 1 po q a.m. OMEPRAZOLE 72983217124 Active Fab Morales DO Active GABAPENTIN 100 MG CAPS 1 po bid GABAPENTIN 11369579451 No Longer Active Tu Landeros MD Active B-12 100 MCG TABS Take one by mouth daily CYANOCOBALAMIN 59637227991 No Longer Active Tu Landeros MD Active BACTRIM DS 800-160 MG TABS 1 bid x 14 day start 09-28-13 SULFAMETHOXAZOLE-TRIMETHOPRIM 79178643385 No Longer Active Tu Landeros MD Active CARVEDILOL 12.5 MG TABS 1 po BID CARVEDILOL 06725496724 Active Lesli Kellogg APRN Active TRILIPIX 135 MG CPDR 1 q hs CHOLINE FENOFIBRATE 66384266574 Active Tu Landeros MD Active FENOFIBRATE 145 MG TABS 1 po qd FENOFIBRATE 66264653507 No Longer Active JASPREET Perez Active OMEPRAZOLE 20 MG TBEC 1 PO 30 MIN BEFORE 1ST MEAL OMEPRAZOLE 37283033429 No Longer Active JASPREET Perez Active SIMVASTATIN 40 MG TABS Take one by mouth daily SIMVASTATIN 83245155127 No Longer Active JASPREET Perez Active VENLAFAXINE HCL 75 MG TABS 1 po BID VENLAFAXINE HCL 65429799874 No Longer Active JASPREET Perez Active CIPRO 500 MG TAB 1 tablet by mouth twice daily CIPROFLOXACIN HCL 45604350749 No Longer Active Tu Landeros MD Active VENLAFAXINE HCL 37.5 MG TABS 1 po BID VENLAFAXINE HCL 77272277547 No Longer Active Suzecandido Nicole RMA Active LAMISIL 250 MG TAB 1 po qd TERBINAFINE HCL 87845768478 No Longer Active Tu Landeros MD Active LORTAB 5 5-500 MG TABS 1/2 to 1 tablet by mouth every 4 hours as needed for pain HYDROCODONE-ACETAMINOPHEN 20325881011 No Longer Active Tu Landeros MD Active HYDROCODONE-ACETAMINOPHEN 5-500 MG TABS take one po Q 4-6 hours prn HYDROCODONE-ACETAMINOPHEN 45596835049 No Longer Active Tu Landeros MD Active BACTRIM DS 800-160 MG TABS 1 po BID x 7 days SULFAMETHOXAZOLE-TRIMETHOPRIM 46240339035 No Longer Active Tu Landeros MD Active VENLAFAXINE HCL 75 MG TABS 1 po BID VENLAFAXINE HCL 81275080071 No Longer Active Elvira Cervantes MD PhD Active TRAMADOL HCL 50 MG TABS 1 tablets every 6 hours as needed for pain TRAMADOL HCL 65777117491 No Longer Active Tu Landeros MD Active ACCU-CHEK FASTCLIX LANCETS MISC Use to check bloodsugar three times daily as needed LANCETS 69959271335 No Longer Active Tu Landeros MD Active ACCU-CHEK KEYONA PLUS STRP Use for testing bloodsugars three times daily as needed GLUCOSE BLOOD 37563238145 No Longer Active Tu Landeros MD Active ACCU-CHEK KEYONA PLUS W/DEVICE KIT Use for testing bloodsugars three times daily as needed BLOOD GLUCOSE MONITORING SUPPL 89603643725 No Longer Active Tu Landeros MD Active SPIRONOLACTONE 25 MG TAB 0.5 tablet by mouth daily SPIRONOLACTONE 77637655706 No Longer Active Tu Landeros MD Active ALPRAZOLAM 0.5 MG TABS 1 tab every 6hrs as needed ALPRAZOLAM 17994839546 No Longer Active Tu Landeros MD Active AUGMENTIN 875-125 MG TAB 1 tab by mouth twice daily with food AMOXICILLIN-POT CLAVULANATE 62711866246 No Longer Active Tu Landeros MD Active PREDNISONE 20 MG TAB 2 tabs daily for 3 days, 1 tab daily for 3 days, 1/2 tab daily for 2 days PREDNISONE 39491166423 No Longer Active Tu Landeros MD Active XANAX 0.5 MG TABS 1 tablet every 6 hrs prn ALPRAZOLAM 73896434389 No Longer Active Tu Landeros MD Active PREDNISONE 20 MG TAB 2 tabs daily for 3 days, 1 tab daily for 3 days, 1/2 tab daily for 2 days PREDNISONE 44963117491 No Longer Active Tu Landeros MD Active TRIAMCINOLONE ACETONIDE 0.1 % OINT Apply to affected areas TID for up to 2 weeks TRIAMCINOLONE ACETONIDE 14000694429 No Longer Active Tu Landeros MD Active LORTAB 5 5-500 MG TABS 1/2 to 1 tablet by mouth every 4 hours as needed for pain HYDROCODONE-ACETAMINOPHEN 95550620335 No Longer Active Tu Landeros MD Active MULTIVITAMINS TABS Take one by mouth daily MULTIPLE VITAMIN 42507951600 No Longer Active Tu Landeros MD Active MELATONIN 5 MG TABS Take one by mouth daily MELATONIN 11449316712 No Longer Active Tu Landeros MD Active SOMA 350 MG TAB 1 po q 6 hours prn spasm CARISOPRODOL 35111270252 No Longer Active Tu Landeros MD Active MECLIZINE HCL 25 MG CHEW TAB 1 four times a day as needed for dizziness 08/05 MECLIZINE HCL 33269732961 No Longer Active Fab Morales DO Active ANGEL BREEZE 2 TEST DISK test tid prn GLUCOSE BLOOD 06129209892 No Longer Active Negra Scott RN Active REGLAN 10 MG TAB 1 po TID PRN Nausea METOCLOPRAMIDE HCL 40578056226 No Longer Active Tu Landeros MD Active METFORMIN HCL 500 MG TABS 1 PO BID METFORMIN HCL 66630027647 No Longer Active Tu Landeros MD Active AMBIEN 10 MG TAB 1 tab by mouth at bedtime as needed for sleep ZOLPIDEM TARTRATE 77773703942 No Longer Active Tu Landeros MD Active FLUOXETINE HCL 40 MG CAPS 1 po q day FLUOXETINE HCL 97498088252 No Longer Active Mayra Galena Active TRILIPIX 135 MG CPDR 1 po qd CHOLINE FENOFIBRATE 81682333280 No Longer Active Tu Landeros MD Active AMBIEN 10 MG TAB 1 tab by mouth at bedtime as needed for sleep AMBIEN 10 MG TAB 654560 ZOLPIDEM TARTRATE Inactive METFORMIN HCL 500 MG TABS 1 PO BID METFORMIN HCL 500 MG TABS 741007 METFORMIN HCL Inactive REGLAN 10 MG TAB 1 po TID PRN Nausea REGLAN 10 MG TAB 066864 METOCLOPRAMIDE HCL Inactive MECLIZINE HCL 25 MG CHEW TAB 1 four times a day as needed for dizziness 08/05 MECLIZINE HCL 25 MG CHEW TAB 014552 MECLIZINE HCL Inactive SOMA 350 MG TAB 1 po q 6 hours prn spasm SOMA 350 MG TAB 707646 CARISOPRODOL Inactive MELATONIN 5 MG TABS Take one by mouth daily MELATONIN 5 MG TABS 567628 MELATONIN Inactive MULTIVITAMINS TABS Take one by mouth daily MULTIVITAMINS TABS MULTIPLE VITAMIN Inactive LORTAB 5 5-500 MG TABS 1/2 to 1 tablet by mouth every 4 hours as needed for pain LORTAB 5 5-500 MG TABS 999859 HYDROCODONE- ACETAMINOPHEN Inactive XANAX 0.5 MG TABS 1 tablet every 6 hrs prn XANAX 0.5 MG TABS 427127 ALPRAZOLAM Inactive AUGMENTIN 875-125 MG TAB 1 tab by mouth twice daily with food AUGMENTIN 875-125 MG TAB 217826 AMOXICILLIN-POT CLAVULANATE Inactive ALPRAZOLAM 0.5 MG TABS 1 tab every 6hrs as needed ALPRAZOLAM 0.5 MG TABS 064486 ALPRAZOLAM Inactive SPIRONOLACTONE 25 MG TAB 0.5 tablet by mouth daily SPIRONOLACTONE 25 MG TAB 387509 SPIRONOLACTONE Inactive ACCU-CHEK KEYONA PLUS W/DEVICE KIT Use for testing bloodsugars three times daily as needed ACCU-CHEK KEYONA PLUS W/DEVICE KIT BLOOD GLUCOSE MONITORING SUPPL Inactive ACCU-CHEK KEYONA PLUS STRP Use for testing bloodsugars three times daily as needed ACCU-CHEK KEYONA PLUS STRP GLUCOSE BLOOD Inactive ACCU-CHEK FASTCLIX LANCETS MISC Use to check bloodsugar three times daily as needed ACCU-CHEK FASTCLIX LANCETS MISC 18224907258 LANCETS Inactive TRAMADOL HCL 50 MG TABS 1 tablets every 6 hours as needed for pain TRAMADOL HCL 50 MG TABS 887059 TRAMADOL HCL Inactive VENLAFAXINE HCL 75 MG TABS 1 po BID VENLAFAXINE HCL 75 MG TABS 785779 VENLAFAXINE HCL Inactive HYDROCODONE-ACETAMINOPHEN 5-500 MG TABS take one po Q 4-6 hours prn HYDROCODONE-ACETAMINOPHEN 5-500 MG TABS 698747 HYDROCODONE- ACETAMINOPHEN Inactive LORTAB 5 5-500 MG TABS 1/2 to 1 tablet by mouth every 4 hours as needed for pain LORTAB 5 5-500 MG TABS 169632 HYDROCODONE- ACETAMINOPHEN Inactive LAMISIL 250 MG TAB 1 po qd LAMISIL 250 MG TAB 326676 TERBINAFINE HCL Inactive VENLAFAXINE HCL 37.5 MG TABS 1 po BID VENLAFAXINE HCL 37.5 MG TABS 629294 VENLAFAXINE HCL Inactive CIPRO 500 MG TAB 1 tablet by mouth twice daily CIPRO 500 MG TAB 186128 CIPROFLOXACIN HCL Inactive VENLAFAXINE HCL 75 MG TABS 1 po BID VENLAFAXINE HCL 75 MG TABS 800183 VENLAFAXINE HCL Inactive SIMVASTATIN 40 MG TABS Take one by mouth daily SIMVASTATIN 40 MG TABS 232756 SIMVASTATIN Inactive OMEPRAZOLE 20 MG TBEC 1 PO 30 MIN BEFORE 1ST MEAL OMEPRAZOLE 20 MG TBEC 954953 OMEPRAZOLE Inactive FENOFIBRATE 145 MG TABS 1 po qd FENOFIBRATE 145 MG TABS 074985 FENOFIBRATE Inactive BACTRIM DS 800-160 MG TABS 1 bid x 14 day start 09-28-13 BACTRIM DS 800-160 MG TABS 023944 SULFAMETHOXAZOLE-TRIMETHOPRIM Inactive B-12 100 MCG TABS Take one by mouth daily B-12 100 MCG TABS CYANOCOBALAMIN Inactive GABAPENTIN 100 MG CAPS 1 po bid GABAPENTIN 100 MG CAPS 238338 GABAPENTIN Inactive HYDROCODONE-ACETAMINOPHEN 5-325 MG TABS 1 tab by mouth every 6 hours as needed for pain HYDROCODONE-ACETAMINOPHEN 5-325 MG TABS 338125 HYDROCODONE-ACETAMINOPHEN Inactive CIPRO 500 MG TABS 1 bid x 14 days start 09-28-13 CIPRO 500 MG TABS 942066 CIPROFLOXACIN HCL Inactive ALIGN 4 MG CAPS [...] as needed DICLOFENAC SODIUM 50 MG TBEC 068232 DICLOFENAC SODIUM Inactive PREDNISONE 20 MG TAB 2 tablets once daily for 2 days, then 1 tablet once daily for 2 days PREDNISONE 20 MG TAB 284168 PREDNISONE Inactive TRUEDRAW LANCING DEVICE MISC Test twice a day dx 250.0 TRUEDRAW LANCING DEVICE MISC LANCET DEVICES Inactive TRUERESULT BLOOD GLUCOSE W/DEVICE KIT test blood sugar twice daily dx 250.00 TRUERESULT BLOOD GLUCOSE W/DEVICE KIT BLOOD GLUCOSE MONITORING SUPPL Inactive FLONASE 50 MCG/ACT SUSP 1 spray each nostril twice daily until bottle empty FLONASE 50 MCG/ACT SUSP 1685705 FLUTICASONE PROPIONATE Inactive VENTOLIN HFA 108 (90 BASE) MCG/ACT AERS 1-2 puffs every 4 hours if needed for cough/congestion VENTOLIN HFA 108 (90 BASE) MCG/ACT AERS ALBUTEROL SULFATE Inactive REQUIP 2 MG TABS Take one tablet at bedtime prn REQUIP 2 MG TABS 329836 ROPINIROLE HCL Inactive SUPER B COMPLEX/VITAMIN C TABS 1 qd SUPER B COMPLEX/ VITAMIN C TABS 35328292303 B COMPLEX-C Inactive TRUEDRAW LANCING DEVICE MISC test blood sugar twice daily dx: 250.00 TRUEDRAW LANCING DEVICE MISC LANCET DEVICES Inactive TRUETEST TEST INVITR STRP test blood sugar twice daily. DX 250.0 TRUETEST TEST INVITR STRP GLUCOSE BLOOD Inactive CYCLOBENZAPRINE HCL 10 MG ORAL TABS 1 po TID PRN Muscle Spasm CYCLOBENZAPRINE HCL 10 MG ORAL TABS 306992 CYCLOBENZAPRINE HCL Inactive DICLOFENAC SODIUM 50 MG ORAL TBEC 1 po BID PRN Pain DICLOFENAC SODIUM 50 MG ORAL TBEC 107737 DICLOFENAC SODIUM Inactive TRIAMCINOLONE ACETONIDE 0.1 % OINT Apply to affected areas TID for up to 2 weeks TRIAMCINOLONE ACETONIDE 0.1 % OINT 2299138 TRIAMCINOLONE ACETONIDE Inactive PREDNISONE 20 MG TAB 2 tabs daily for 3 days, 1 tab daily for 3 days, 1/2 tab daily for 2 days PREDNISONE 20 MG TAB 112144 PREDNISONE Inactive PREDNISONE 20 MG TAB 2 tabs daily for 3 days, 1 tab daily for 3 days, 1/2 tab daily for 2 days PREDNISONE 20 MG TAB 582983 PREDNISONE Inactive BACTRIM DS 800-160 MG TABS 1 po BID x 7 days BACTRIM DS 800-160 MG TABS 610894 SULFAMETHOXAZOLE-TRIMETHOPRIM Inactive ZITHROMAX 250 MG TAB 2 po today, then 1 po q days 2-5 ZITHROMAX 250 MG TAB 929796 AZITHROMYCIN Inactive Advance Directives Directive Description Start Date DISCUSSED WITH PATIENT -- NO DECISION MADE Immunizations Vaccine Administration Date Value Standard Description Seasonal influenza vaccine, injectable, containing preservative, for > 3 years old (Afluria, FluLaval, Fluzone, Fluvirin, Fluarix, Agriflu(>=18 yo)) Fluzone (>3 yrs.) [[id number]] Influenza, seasonal, injectable influenza immunization (Flu Vax) has been administered 02/22/2012 influenza virus vaccine, unspecified formulation Seasonal influenza vaccine, injectable, containing preservative, for > 3 years old (Afluria, FluLaval, Fluzone, Fluvirin, Fluarix, Agriflu(>=18 yo)) Fluzone (>3 yrs.) [[id number]] Influenza, seasonal, injectable Vital Signs Date Name [...] Magnesium - Chemistry sodium, serum 143 mmol/L 594-964 4988/01/10 carbon dioxide, venous blood 28.0 mmol/L 21.0-32.0 potassium, serum 4.5 mmol/L 3.5-5.2 chloride, serum 104 mmol/L 98-107 blood glucose 158 mg/dL 65-110 urea nitrogen, blood 23 mg/dL 7-18 creatinine, serum 1.06 mg/dL 0.55-1.30 alanine aminotransferase (SGPT), serum 42 U/L 12-78 aspartate aminotransferase (SGOT), serum 32 U/L 15-37 calcium, serum 9.3 mg/dL 8.5-10.1 bilirubin, serum, total 0.20 mg/dL 0.00-1.00 cholesterol, serum 177 mg/dL 944-902 6720/01/10 triglyceride, serum, fasting 320 mg/dL 30-200 HDL cholesterol, serum 46 mg/dL 32-96 LDL cholesterol, serum 67 mg/dL 0-130 Lab Report: COMPREHENSIVE METABOLIC PANEL, LIPID PANEL, HEMOGLOBIN A1c - Chemistry cholesterol, serum 135 mg/dL 516-272 0609/05/17 HDL cholesterol, serum 41 mg/dL > OR=46 [...] <30 Encounters Code Encounter Date Provider Facility CPT-08788 Level 4 Est. Patient 14:28:34 CDT Tu Landeros MD [facility] CPT-25238 Level 3 Est. Patient 13:33:09 CDT Tu Landeros MD [facility] CPT-18755 Level 4 Est. Patient 14:29:21 CDT Tu Landeros MD [facility] CPT-54428 Level 4 Est. Patient 09:08:17 MEDICAL STAFF CREDENTIALING COORDINATOR Tu Landeros MD [facility] CPT-22049 Level 4 Est. Patient 14:40:19 CDT Tu Landeros MD [facility] CPT-46352 Level 4 Est. Patient 14:06:04 MEDICAL STAFF CREDENTIALING COORDINATOR Tu Landeros MD [facility] CPT-63690 Level 3 Est. Patient 14:05:18 MEDICAL STAFF CREDENTIALING COORDINATOR Tu Landeros MD [facility] CPT-41094 Level 3 Est. Patient 10:06:54 MEDICAL STAFF CREDENTIALING COORDINATOR [facility] Level 4 Est. Patient 13:50:18 MEDICAL STAFF CREDENTIALING COORDINATOR Tu Landeros MD [facility] CPT-49598 Level 3 Est. Patient 10:30:04 CDT Tu Landeros MD [facility] CPT-81234 Level 4 Est. Patient 11:03:38 CDT Tu Landeros MD [facility] CPT-93350 Level 3 Est. Patient 10:20:44 CDT Fab Morales DO [facility] CPT-24014 Level 4 Est. Patient 14:38:57 CDT Tu Landeros MD [facility] CPT-13422 Level 4 Est. Patient 14:27:39 MEDICAL STAFF CREDENTIALING COORDINATOR Tu Landeros MD [facility] CPT-03545 Level 4 Est. Patient 09:45:25 CDT Tu Landeros MD [facility] CPT-96889 Level 4 Est. Patient 09:05:20 MEDICAL STAFF CREDENTIALING COORDINATOR Tu Landeros MD [facility] CPT-15989 Level 4 Est. Patient 14:09:06 CDT Tu Landeros MD [facility] CPT-97861 Level 3 Est. Patient 13:36:54 CDT Tu Landeros MD [facility] CPT-06470 Level 3 Est. Patient 08:59:14 CDT Tu Landeros MD [facility] CPT-32110 Level 3 Est. Patient 13:48:35 CDT Fab Morales DO [facility] CPT-95037 Level 4 Est. Patient 10:05:48 CDT Tu Landeros MD [facility] CPT-69880 Level 3 Est. Patient 13:38:42 CDT Marek BANKS [facility] CPT-14062 Level 5 Est. Patient 08:08:39 CDT Jerrica FRANCIS [facility] CPT-41276 Level 4 Est. Patient 14:23:38 CDT Tu Landeros MD [facility] CPT-24640 Level 3 Est. Patient 11:44:04 CDT Tu Landeros MD [facility] CPT-53402 Level 3 Est. Patient 11:03:20 MEDICAL STAFF CREDENTIALING COORDINATOR Tu Landeros MD [facility] CPT-30634 Level 3 Est. Patient 11:03:14 MEDICAL STAFF CREDENTIALING COORDINATOR Tu Landeros MD [facility] CPT-56896 Level 3 Est. Patient 12:42:49 CDT Tu Landeros MD [facility] CPT-31299 Level 3 Est. Patient 11:52:06 CDT Tu Landeros MD [facility] CPT-08759 Level 3 Est. Patient 13:58:11 CDT Tu Landeros MD [facility] CPT-53545 Level 3 Est. Patient 17:50:07 CDT Fab Morales DO [facility] CPT-13515 Level 3 Est. Patient 12:06:29 CDT Elvira Cervantes MD [facility] CPT-43069 Level 3 Est. Patient 15:50:32 CDT Tu Landeros MD [facility] CPT-35629 Level 4 Est. Patient 16:08:29 CDT Tu Landeros MD [facility] CPT-10046 Level 3 Est. Patient 16:04:19 CDT Tu Landeros MD [facility] CPT-11328 Level 3 Est. Patient 11:22:30 MEDICAL STAFF CREDENTIALING COORDINATOR Tu Landeros MD [facility] CPT-75632 Level 4 Est. Patient 16:24:02 MEDICAL STAFF CREDENTIALING COORDINATOR Tu Landeros MD [facility] CPT-71275 Level 3 Est. Patient 17:21:23 MEDICAL STAFF CREDENTIALING COORDINATOR Tu Landeros MD [facility] Procedures Code Procedure Name Date Entry Date Standard Description CPT-08164 Shoulder, right, comp min 2V - XRAY USE ONLY 13:50:22 CDT CPT-G0009 Administration of Pneumococcal Vaccine 15:08:26 CDT CPT-57205 Prevnar 13 Intramuscular Suspension 15:08:26 CDT 10/08 CPT-G0439 [facility] Annual Wellness Exam 14:29:22 CDT CPT-19258 Venipuncture Draw Fee 13:15:35 CDT CPT-74221 Magnesium - LAB USE ONLY 11:14:20 MEDICAL STAFF CREDENTIALING COORDINATOR CPT-06356 Lipid - LAB USE ONLY 11:14:20 MEDICAL STAFF CREDENTIALING COORDINATOR CPT-83024 HGBA1C - LAB USE ONLY 11:14:20 MEDICAL STAFF CREDENTIALING COORDINATOR CPT-39960 CMP - LAB USE ONLY 11:14:19 MEDICAL STAFF CREDENTIALING COORDINATOR CPT-12952 CBC - LAB USE ONLY 11:14:19 MEDICAL STAFF CREDENTIALING COORDINATOR CPT-18871 Venipuncture Draw Fee 11:14:18 MEDICAL STAFF CREDENTIALING COORDINATOR CPT-74611 First Vx - Ix admin for Medicare patients 16:46:52 CDT CPT-90361 Fluzone Preservative Free Intramuscular Suspension 16:46 :51 CDT CPT-89544 CBC - LAB USE ONLY 17:14:46 CDT CPT-98824 HGBA1C - LAB USE ONLY 17:14:46 CDT CPT-13938 Venipuncture Draw Fee 17:14:46 CDT CPT-G0438 Initial Annual Wellness Exam 14:13:04 CDT CPT-02028 Breathing Tx 10:06:54 MEDICAL STAFF CREDENTIALING COORDINATOR CPT-55065 Postop F/U Visit 10:02:45 CDT CPT-LR Lesion Removal 09:02:56 CDT CPT-JTINJ Asp/Joint Injection 15:51:27 MEDICAL STAFF CREDENTIALING COORDINATOR CPT-OV Office Visit 15:52:02 MEDICAL STAFF CREDENTIALING COORDINATOR CPT-OV Office Visit 15:45:11 CDT CPT-000 Give Zostavax 14:09:06 CDT CPT-73053 Administration single or combination vaccine inc oral 15 :19:04 CDT CPT-19026 Zoster Vaccine (Zostavax) 15:19:04 CDT CPT-78583 Administration single or combination vaccine inc oral 20 :51:03 CDT CPT-94517 Influenza split virus > age 3 20:51:03 CDT CPT-52696 No Charge Offi Visit 14:52:03 CDT CPT-OV Office Visit 14:57:43 CDT CPT-OV Office Visit 15:22:32 CDT CPT-75461 Administration single or combination vaccine inc oral 11 :33:15 CDT CPT-99475 Influenza split virus > age 3 11:33:15 CDT
--- OUTSIDE RECORDS SUMMARY | 2018-04-25 15:55 | XMS REPORT | Clinical Summary ---
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 Active uT Landeros MD Unspecified hereditary and idiopathic peripheral [...] po TID PRN Muscle Spasm CYCLOBENZAPRINE HCL 29538560452 Active Tu Landeros MD Active DICLOFENAC SODIUM 50 MG ORAL TBEC 1 po BID PRN Pain DICLOFENAC SODIUM 40407790298 Delores Landeros MD Active INVOKANA 100 MG ORAL TABS 1 po qd CANAGLIFLOZIN 59061863201 Active Tu Landeros MD Active GLIPIZIDE 5 MG ORAL TABS 1 po qd GLIPIZIDE 91165637630 No Longer Active Tu Landeros MD Active VENLAFAXINE HCL 75 MG ORAL TABS 1 po BID VENLAFAXINE HCL 46534484770 Active Tu Landeros MD Active GLIMEPIRIDE 1 MG ORAL TABS 1 po qd GLIMEPIRIDE 12900734406 No Longer Active Tu Landeros MD Active TRUE METRIX BLOOD GLUCOSE TEST INVITR STRP Test blood sugar BID Dx: E11.9 GLUCOSE BLOOD 63461122015 Active Tu Landeros MD Active TRUE METRIX AIR GLUCOSE METER W/DEVICE KIT Test blood glucose BID Dx: E11.9 BLOOD GLUCOSE MONITORING SUPPL 23271152115 Active Tu Landeros MD Active TRUETEST TEST INVITR STRP test blood sugar twice daily. DX 250.0 GLUCOSE BLOOD 75455710655 No Longer Active Mirna Stanley LPN Active TRUEDRAW LANCING DEVICE MISC test blood sugar twice daily dx: 250.00 LANCET DEVICES 83712232328 No Longer Active Mirna Stanley LPN Active ENALAPRIL MALEATE 20 MG TABS 2 po qd ENALAPRIL MALEATE 73680465777 Active Tu Landeros MD Active SUPER B COMPLEX/VITAMIN C TABS 1 qd B COMPLEX-C 27234223943 No Longer Active Tu Landeros MD Active ASPIRIN EC 81 MG ORAL TBEC 1 po qd ASPIRIN 50769109542 Active Tu Landeros MD Active GLUCOSAMINE 500 MG TABS 2 po qd GLUCOSAMINE Active Tu Landeros MD Active SIMVASTATIN 40 MG TABS 0.5 po qHS SIMVASTATIN 66815617130 Active Tu Landeros MD Active FISH OIL 1000 MG CAPS 1 po qd OMEGA-3 FATTY ACIDS 59140917804 Active Tu Landeros MD Active METFORMIN HCL 1000 MG TABS 1 po BID METFORMIN HCL 05836878725 Active Tu Landeros MD Active KLOR-CON 10 10 MEQ CR-TABS 2 po qd POTASSIUM CHLORIDE 97748422157 Active Tu Landeros MD Active FUROSEMIDE 40 MG TAB 1 po qd FUROSEMIDE 81874475741 Active Tu Landeros MD Active REQUIP 2 MG ORAL TABS 1 po qHS PRN Restless legs ROPINIROLE HCL 06270358497 Active Tu Landeros MD Active GABAPENTIN 100 MG CAPS 1 po BID GABAPENTIN 86332754193 Active Tu Landeros MD Active REQUIP 2 MG TABS Take one tablet at bedtime prn ROPINIROLE HCL 33120959901 No Longer Active Tu Landeros MD Active VENTOLIN HFA 108 (90 BASE) MCG/ACT AERS 1-2 puffs every 4 hours if needed for cough/congestion ALBUTEROL SULFATE 95930412369 No Longer Active Ambika Aden APRN Active ZITHROMAX 250 MG TAB 2 po today, then 1 po q days 2-5 AZITHROMYCIN 33743175243 No Longer Active Miranda Suresh APRN Active FLONASE 50 MCG/ACT SUSP 1 spray each nostril twice daily until bottle empty FLUTICASONE PROPIONATE 69716326412 No Longer Active Tu Landeros MD Active COLACE 100 MG CAP 1 po BID PRN Constipation DOCUSATE SODIUM 14210881923 Active Tu Landeros MD Active TRUERESULT BLOOD GLUCOSE W/DEVICE KIT test blood sugar twice daily dx 250.00 BLOOD GLUCOSE MONITORING SUPPL 09222233090 No Longer Active Tu Landeros MD Active TRUEDRAW LANCING DEVICE MISC Test twice a day dx 250.0 LANCET DEVICES 01800717413 No Longer Active Tu Landeros MD Active PREDNISONE 20 MG TAB 2 tablets once daily for 2 days, then 1 tablet once daily for 2 days PREDNISONE 94519247019 No Longer Active Tu Landeros MD Active DICLOFENAC SODIUM 50 MG TBEC 1 tablet by mouth three times a day as needed DICLOFENAC SODIUM 64716033243 No Longer Active Fab W Andrew DO Active EMBRACE BLOOD GLUCOSE TEST STRP test blood sugar twice daily DX 250.0 2014 GLUCOSE BLOOD 92657929178 No Longer Active Tu Landeros MD Active TRUETEST TEST STRP test blood sugar three times daily dx: 250.00 GLUCOSE BLOOD 60264010713 No Longer Active Suze VOGEL Active TRUERESULT BLOOD GLUCOSE W/DEVICE KIT use to test blood sugar tid dx: 250.00 BLOOD GLUCOSE MONITORING SUPPL 55599328787 No Longer Active Suze Hardenehart RMA Active ALIGN 4 MG CAPS 1 tid PROBIOTIC PRODUCT 27468878274 No Longer Active Shaun Sy MD Active CIPRO 500 MG TABS 1 bid x 14 days start 09-28-13 CIPROFLOXACIN HCL 34003478921 No Longer Active Shaun Sy MD Active TRAMADOL HCL 50 MG TABS 1-2 tablets every 6 hours as needed for pain TRAMADOL HCL 18125665383 Active Tu Landeros MD Active HYDROCODONE-ACETAMINOPHEN 5-325 MG TABS 1 tab by mouth every 6 hours as needed for pain HYDROCODONE-ACETAMINOPHEN 52901054686 No Longer Active Tu Landeros MD Active OMEPRAZOLE 20 MG CPDR 1 po q a.m. OMEPRAZOLE 06980656293 Active Lesli Kellogg APRN Active GABAPENTIN 100 MG CAPS 1 po bid GABAPENTIN 29300846945 No Longer Active Tu Landeros MD Active B-12 100 MCG TABS Take one by mouth daily CYANOCOBALAMIN 26886154718 No Longer Active Tu Landeros MD Active BACTRIM DS 800-160 MG TABS 1 bid x 14 day start 09-28-13 SULFAMETHOXAZOLE-TRIMETHOPRIM 09621629059 No Longer Active Tu Landeros MD Active CARVEDILOL 12.5 MG TABS 1 po BID CARVEDILOL 94414411587 Active Tu Landeros MD Active TRILIPIX 135 MG CPDR 1 q hs CHOLINE FENOFIBRATE 15503338697 Active Tu Landeros MD Active FENOFIBRATE 145 MG TABS 1 po qd FENOFIBRATE 15762878492 No Longer Active JASPREET Perez Active OMEPRAZOLE 20 MG TBEC 1 PO 30 MIN BEFORE 1ST MEAL OMEPRAZOLE 81106615685 No Longer Active JASPREET Perez Active SIMVASTATIN 40 MG TABS Take one by mouth daily SIMVASTATIN 35110701806 No Longer Active JASPREET Perez Active VENLAFAXINE HCL 75 MG TABS 1 po BID VENLAFAXINE HCL 13574558424 No Longer Active JASPREET Perez Active CIPRO 500 MG TAB 1 tablet by mouth twice daily CIPROFLOXACIN HCL 69417499498 No Longer Active Tu Landeros MD Active VENLAFAXINE HCL 37.5 MG TABS 1 po BID VENLAFAXINE HCL 24844846714 No Longer Active Suze Nicole [facility] Active LAMISIL 250 MG TAB 1 po qd TERBINAFINE HCL 39343144948 No Longer Active Tu Landeros MD Active LORTAB 5 5-500 MG TABS 1/2 to 1 tablet by mouth every 4 hours as needed for pain HYDROCODONE-ACETAMINOPHEN 15716739631 No Longer Active Tu Landeros MD Active HYDROCODONE-ACETAMINOPHEN 5-500 MG TABS take one po Q 4-6 hours prn HYDROCODONE-ACETAMINOPHEN 35386932418 No Longer Active Tu Landeros MD Active BACTRIM DS 800-160 MG TABS 1 po BID x 7 days SULFAMETHOXAZOLE-TRIMETHOPRIM 02904640340 No Longer Active Tu Landeros MD Active VENLAFAXINE HCL 75 MG TABS 1 po BID VENLAFAXINE HCL 70443520293 No Longer Active Elvira Cervantes MD PhD Active TRAMADOL HCL 50 MG TABS 1 tablets every 6 hours as needed for pain TRAMADOL HCL 05837815920 No Longer Active Tu Landeros MD Active ACCU-CHEK FASTCLIX LANCETS MISC Use to check bloodsugar three times daily as needed LANCETS 23271037503 No Longer Active Tu Landeros MD Active ACCU-CHEK KEYONA PLUS STRP Use for testing bloodsugars three times daily as needed GLUCOSE BLOOD 39355798296 No Longer Active Tu Landeros MD Active ACCU-CHEK KEYONA PLUS W/DEVICE KIT Use for testing bloodsugars three times daily as needed BLOOD GLUCOSE MONITORING SUPPL 44197233207 No Longer Active Tu Landeros MD Active SPIRONOLACTONE 25 MG TAB 0.5 tablet by mouth daily SPIRONOLACTONE 27275795458 No Longer Active Tu Landeros MD Active ALPRAZOLAM 0.5 MG TABS 1 tab every 6hrs as needed ALPRAZOLAM 36181981009 No Longer Active Tu Landeros MD Active AUGMENTIN 875-125 MG TAB 1 tab by mouth twice daily with food AMOXICILLIN-POT CLAVULANATE 06496631914 No Longer Active Tu Landeros MD Active PREDNISONE 20 MG TAB 2 tabs daily for 3 days, 1 tab daily for 3 days, 1/2 tab daily for 2 days PREDNISONE 14590490553 No Longer Active Tu Landeros MD Active XANAX 0.5 MG TABS 1 tablet every 6 hrs prn ALPRAZOLAM 21232227663 No Longer Active Tu Landeros MD Active PREDNISONE 20 MG TAB 2 tabs daily for 3 days, 1 tab daily for 3 days, 1/2 tab daily for 2 days PREDNISONE 61187066190 No Longer Active Tu Landeros MD Active TRIAMCINOLONE ACETONIDE 0.1 % OINT Apply to affected areas TID for up to 2 weeks TRIAMCINOLONE ACETONIDE 81453339905 No Longer Active Tu Landeros MD Active LORTAB 5 5-500 MG TABS 1/2 to 1 tablet by mouth every 4 hours as needed for pain HYDROCODONE-ACETAMINOPHEN 51457031682 No Longer Active Tu Landeros MD Active MULTIVITAMINS TABS Take one by mouth daily MULTIPLE VITAMIN 54590532925 No Longer Active Tu Landeros MD Active MELATONIN 5 MG TABS Take one by mouth daily MELATONIN 01087294644 No Longer Active Tu Landeros MD Active SOMA 350 MG TAB 1 po q 6 hours prn spasm CARISOPRODOL 97335439778 No Longer Active Tu Landeros MD Active MECLIZINE HCL 25 MG CHEW TAB 1 four times a day as needed for dizziness 08/05 MECLIZINE HCL 95739027279 No Longer Active Fab Morales DO Active ANGEL BREEZE 2 TEST DISK test tid prn GLUCOSE BLOOD 84803062615 No Longer Active Negra Scott RN Active REGLAN 10 MG TAB 1 po TID PRN Nausea METOCLOPRAMIDE HCL 66798211079 No Longer Active Tu Landeros MD Active METFORMIN HCL 500 MG TABS 1 PO BID METFORMIN HCL 77171551818 No Longer Active Tu Landeros MD Active AMBIEN 10 MG TAB 1 tab by mouth at bedtime as needed for sleep ZOLPIDEM TARTRATE 58752179690 No Longer Active Tu Landeros MD Active FLUOXETINE HCL 40 MG CAPS 1 po q day FLUOXETINE HCL 03798767829 No Longer Active Mayra Gilbert Active TRILIPIX 135 MG CPDR 1 po qd CHOLINE FENOFIBRATE 87211047360 No Longer Active Tu Landeros MD Active AMBIEN 10 MG TAB 1 tab by mouth at bedtime as needed for sleep AMBIEN 10 MG TAB 182291 ZOLPIDEM TARTRATE Inactive METFORMIN HCL 500 MG TABS 1 PO BID METFORMIN HCL 500 MG TABS 113652 METFORMIN HCL Inactive REGLAN 10 MG TAB 1 po TID PRN Nausea REGLAN 10 MG TAB 449125 METOCLOPRAMIDE HCL Inactive MECLIZINE HCL 25 MG CHEW TAB 1 four times a day as needed for dizziness 08/05 MECLIZINE HCL 25 MG CHEW TAB 903994 MECLIZINE HCL Inactive SOMA 350 MG TAB 1 po q 6 hours prn spasm SOMA 350 MG TAB 497123 CARISOPRODOL Inactive MELATONIN 5 MG TABS Take one by mouth daily MELATONIN 5 MG TABS 418679 MELATONIN Inactive MULTIVITAMINS TABS Take one by mouth daily MULTIVITAMINS TABS MULTIPLE VITAMIN Inactive LORTAB 5 5-500 MG TABS 1/2 to 1 tablet by mouth every 4 hours as needed for pain LORTAB 5 5-500 MG TABS HYDROCODONE- ACETAMINOPHEN Inactive XANAX 0.5 MG TABS 1 tablet every 6 hrs prn XANAX 0.5 MG TABS 245993 ALPRAZOLAM Inactive AUGMENTIN 875-125 MG TAB 1 tab by mouth twice daily with food AUGMENTIN 875-125 MG TAB 022584 AMOXICILLIN-POT CLAVULANATE Inactive ALPRAZOLAM 0.5 MG TABS 1 tab every 6hrs as needed ALPRAZOLAM 0.5 MG TABS 248129 ALPRAZOLAM Inactive SPIRONOLACTONE 25 MG TAB 0.5 tablet by mouth daily SPIRONOLACTONE 25 MG TAB 318883 SPIRONOLACTONE Inactive ACCU-CHEK KEYONA PLUS W/DEVICE KIT Use for testing bloodsugars three times daily as needed ACCU-CHEK KEYONA PLUS W/DEVICE KIT BLOOD GLUCOSE MONITORING SUPPL Inactive ACCU-CHEK KEYONA PLUS STRP Use for testing bloodsugars three times daily as needed ACCU-CHEK KEYONA PLUS STRP GLUCOSE BLOOD Inactive ACCU-CHEK FASTCLIX LANCETS MISC Use to check bloodsugar three times daily as needed ACCU-CHEK FASTCLIX LANCETS MISC 53216387174 [facility] Inactive TRAMADOL HCL 50 MG TABS 1 tablets every 6 hours as needed for pain TRAMADOL HCL 50 MG TABS 966288 TRAMADOL HCL Inactive VENLAFAXINE HCL 75 MG TABS 1 po BID VENLAFAXINE HCL 75 MG TABS 948107 VENLAFAXINE HCL Inactive HYDROCODONE-ACETAMINOPHEN 5-500 MG TABS take one po Q 4-6 hours prn HYDROCODONE-ACETAMINOPHEN 5-500 MG TABS HYDROCODONE- ACETAMINOPHEN Inactive LORTAB 5 5-500 MG TABS 1/2 to 1 tablet by mouth every 4 hours as needed for pain LORTAB 5 5-500 MG TABS HYDROCODONE- ACETAMINOPHEN Inactive LAMISIL 250 MG TAB 1 po qd LAMISIL 250 MG TAB 195131 TERBINAFINE HCL Inactive VENLAFAXINE HCL 37.5 MG TABS 1 po BID VENLAFAXINE HCL 37.5 MG TABS 682766 VENLAFAXINE HCL Inactive CIPRO 500 MG TAB 1 tablet by mouth twice daily CIPRO 500 MG TAB 134192 CIPROFLOXACIN HCL Inactive VENLAFAXINE HCL 75 MG TABS 1 po BID VENLAFAXINE HCL 75 MG TABS 364342 VENLAFAXINE HCL Inactive SIMVASTATIN 40 MG TABS Take one by mouth daily SIMVASTATIN 40 MG TABS 744433 SIMVASTATIN Inactive OMEPRAZOLE 20 MG TBEC 1 PO 30 MIN BEFORE 1ST MEAL OMEPRAZOLE 20 MG TBEC 372779 OMEPRAZOLE Inactive FENOFIBRATE 145 MG TABS 1 po qd FENOFIBRATE 145 MG TABS 204496 FENOFIBRATE Inactive BACTRIM DS 800-160 MG TABS 1 bid x 14 day start 09-28-13 BACTRIM DS 800-160 MG TABS 314959 SULFAMETHOXAZOLE-TRIMETHOPRIM Inactive B-12 100 MCG TABS Take one by mouth daily B-12 100 MCG TABS CYANOCOBALAMIN Inactive GABAPENTIN 100 MG CAPS 1 po bid GABAPENTIN 100 MG CAPS 891606 GABAPENTIN Inactive HYDROCODONE-ACETAMINOPHEN 5-325 MG TABS 1 tab by mouth every 6 hours as needed for pain HYDROCODONE-ACETAMINOPHEN 5-325 MG TABS 065426 HYDROCODONE-ACETAMINOPHEN Inactive CIPRO 500 MG TABS 1 bid x 14 days start 09-28-13 CIPRO 500 MG TABS 202121 CIPROFLOXACIN HCL Inactive ALIGN 4 MG CAPS [...] as needed DICLOFENAC SODIUM 50 MG TBEC 265592 DICLOFENAC SODIUM Inactive PREDNISONE 20 MG TAB 2 tablets once daily for 2 days, then 1 tablet once daily for 2 days PREDNISONE 20 MG TAB 062698 PREDNISONE Inactive TRUEDRAW LANCING DEVICE MISC Test twice a day dx 250.0 TRUEDRAW LANCING DEVICE MISC LANCET DEVICES Inactive TRUERESULT BLOOD GLUCOSE W/DEVICE KIT test blood sugar twice daily dx 250.00 TRUERESULT BLOOD GLUCOSE W/DEVICE KIT BLOOD GLUCOSE MONITORING SUPPL Inactive FLONASE 50 MCG/ACT SUSP 1 spray each nostril twice daily until bottle empty FLONASE 50 MCG/ACT SUSP 6865987 FLUTICASONE PROPIONATE Inactive VENTOLIN HFA 108 (90 BASE) MCG/ACT AERS 1-2 puffs every 4 hours if needed for cough/congestion VENTOLIN HFA 108 (90 BASE) MCG/ACT AERS ALBUTEROL SULFATE Inactive REQUIP 2 MG TABS Take one tablet at bedtime prn REQUIP 2 MG TABS 447118 ROPINIROLE HCL Inactive SUPER B COMPLEX/VITAMIN C TABS 1 qd SUPER B COMPLEX/ VITAMIN C TABS 63294090763 B COMPLEX-C Inactive TRUEDRAW LANCING DEVICE MISC test blood sugar twice daily dx: 250.00 TRUEDRAW LANCING DEVICE MISC LANCET DEVICES Inactive TRUETEST TEST INVITR STRP test blood sugar twice daily. DX 250.0 TRUETEST TEST INVITR STRP GLUCOSE BLOOD Inactive TRIAMCINOLONE ACETONIDE 0.1 % OINT Apply to affected areas TID for up to 2 weeks TRIAMCINOLONE ACETONIDE 0.1 % OINT 4720925 TRIAMCINOLONE ACETONIDE Inactive PREDNISONE 20 MG TAB 2 tabs daily for 3 days, 1 tab daily for 3 days, 1/2 tab daily for 2 days PREDNISONE 20 MG TAB 545766 PREDNISONE Inactive PREDNISONE 20 MG TAB 2 tabs daily for 3 days, 1 tab daily for 3 days, 1/2 tab daily for 2 days PREDNISONE 20 MG TAB 451376 PREDNISONE Inactive BACTRIM DS 800-160 MG TABS 1 po BID x 7 days BACTRIM DS 800-160 MG TABS 364435 SULFAMETHOXAZOLE-TRIMETHOPRIM Inactive ZITHROMAX 250 MG TAB 2 po today, then 1 po q days 2-5 ZITHROMAX 250 MG TAB 8358743 AZITHROMYCIN Inactive Advance Directives Directive Description Start Date DISCUSSED WITH PATIENT -- NO DECISION MADE Immunizations Vaccine Administration Date Value Standard Description Seasonal influenza vaccine, injectable, containing preservative, for > 3 years old (Afluria, FluLaval, Fluzone, Fluvirin, Fluarix, Agriflu(>=18 yo)) Fluzone (>3 yrs.) [[id number]] Influenza, seasonal, injectable influenza immunization (Flu Vax) has been administered 02/22/2012 influenza virus vaccine, unspecified formulation Seasonal influenza vaccine, injectable, containing preservative, for > 3 years old (Afluria, FluLaval, Fluzone, Fluvirin, Fluarix, Agriflu(>=18 yo)) Fluzone (>3 yrs.) [[id number]] Influenza, seasonal, injectable Vital Signs Date Name [...] Magnesium - Chemistry sodium, serum 143 mmol/L 340-187 2301/01/10 carbon dioxide, venous blood 28.0 mmol/L 21.0-32.0 potassium, serum 4.5 mmol/L 3.5-5.2 chloride, serum 104 mmol/L 98-107 blood glucose 158 mg/dL 65-110 urea nitrogen, blood 23 mg/dL 7-18 creatinine, serum 1.06 mg/dL 0.55-1.30 alanine aminotransferase (SGPT), serum 42 U/L 12-78 aspartate aminotransferase (SGOT), serum 32 U/L 15-37 calcium, serum 9.3 mg/dL 8.5-10.1 bilirubin, serum, total 0.20 mg/dL 0.00-1.00 cholesterol, serum 177 mg/dL 024-997 6862/01/10 triglyceride, serum, fasting 320 mg/dL 30-200 HDL cholesterol, serum 46 mg/dL 32-96 LDL cholesterol, serum 67 mg/dL 0-130 Lab Report: COMPREHENSIVE METABOLIC PANEL, LIPID PANEL, HEMOGLOBIN A1c - Chemistry cholesterol, serum 135 mg/dL 711-767 8523/05/17 HDL cholesterol, serum 41 mg/dL > OR=46 triglyceride, serum, fasting 206 mg/dL <150 LDL cholesterol, serum 53 MG/DL (CALC) mg/dL <130 cholesterol/HDL ratio, serum 3.3 (calc) < OR=5.0 Lab Report: HGBA1C - Chemistry hemoglobin A1C, blood, as % of total hemoglobin 7.4 % 4.3-6.0 sodium, serum 140 mmol/L 676-752 6688/09/07 potassium, serum 4.3 mmol/L 3.5-5.2 chloride, serum [...] <30 Encounters Code Encounter Date Provider Facility CPT-51696 Level 3 Est. Patient 13:33:09 CDT Tu Landeros MD [facility] CPT-59542 Level 4 Est. Patient 14:29:21 CDT Tu Landeros MD [facility] CPT-39533 Level 4 Est. Patient 09:08:17 WELLNESS EDUCATOR Tu Landeros MD [facility] CPT-51442 Level 4 Est. Patient 14:40:19 CDT Tu Landeros MD [facility] CPT-59114 Level 4 Est. Patient 14:06:04 WELLNESS EDUCATOR Tu Landeros MD [facility] CPT-96091 Level 3 Est. Patient 14:05:18 WELLNESS EDUCATOR Tu Landeros MD [facility] CPT-99585 Level 3 Est. Patient 10:06:54 WELLNESS EDUCATOR Miranda Suresh [facility] CPT-50153 Level 4 Est. Patient 13:50:18 WELLNESS EDUCATOR Tu Landeros MD [facility] CPT-16749 Level 3 Est. Patient 10:30:04 CDT Tu Landeros MD [facility] CPT-22011 Level 4 Est. Patient 11:03:38 CDT Tu Landeros MD [facility] CPT-51595 Level 3 Est. Patient 10:20:44 CDT Fab Morales DO [facility] CPT-03302 Level 4 Est. Patient 14:38:57 CDT Tu Landeros MD [facility] CPT-63299 Level 4 Est. Patient 14:27:39 WELLNESS EDUCATOR Tu Landeros MD [facility] CPT-40114 Level 4 Est. Patient 09:45:25 CDT Tu Landeros MD [facility] CPT-66152 Level 4 Est. Patient 09:05:20 WELLNESS EDUCATOR Tu Landeros MD [facility] CPT-82086 Level 4 Est. Patient 14:09:06 CDT Tu Landeros MD [facility] CPT-23891 Level 3 Est. Patient 13:36:54 CDT Tu Landeros MD [facility] CPT-04263 Level 3 Est. Patient 08:59:14 CDT Tu Landeros MD [facility] CPT-66500 Level 3 Est. Patient 13:48:35 CDT Fab Morales DO [facility] CPT-14217 Level 4 Est. Patient 10:05:48 CDT Tu Landeros MD [facility] CPT-27922 Level 3 Est. Patient 13:38:42 CDT Marek BANKS [facility] CPT-03714 Level 5 Est. Patient 08:08:39 CDT Jerrica FRANCIS [facility] CPT-35336 Level 4 Est. Patient 14:23:38 CDT Tu Landeros MD [facility] CPT-36402 Level 3 Est. Patient 11:44:04 CDT Tu Landeros MD [facility] CPT-89685 Level 3 Est. Patient 11:03:20 WELLNESS EDUCATOR Tu Landeros MD [facility] CPT-41294 Level 3 Est. Patient 11:03:14 WELLNESS EDUCATOR Tu Landeros MD [facility] CPT-19692 Level 3 Est. Patient 12:42:49 CDT Tu Landeros MD [facility] CPT-93306 Level 3 Est. Patient 11:52:06 CDT Tu Landeros MD [facility] CPT-42420 Level 3 Est. Patient 13:58:11 CDT Tu Landeros MD [facility] CPT-79733 Level 3 Est. Patient 17:50:07 CDT Fab Morales DO [facility] CPT-73442 Level 3 Est. Patient 12:06:29 CDT Elvira Cervantes MD [facility] CPT-87399 Level 3 Est. Patient 15:50:32 CDT Tu Landeros MD [facility] CPT-19236 Level 4 Est. Patient 16:08:29 CDT Tu Landeros MD [facility] CPT-87620 Level 3 Est. Patient 16:04:19 CDT Tu Landeros MD [facility] CPT-01167 Level 3 Est. Patient 11:22:30 WELLNESS EDUCATOR Tu Landeros MD [facility] CPT-21251 Level 4 Est. Patient 16:24:02 WELLNESS EDUCATOR Tu Landeros MD [facility] CPT-40941 Level 3 Est. Patient 17:21:23 WELLNESS EDUCATOR Tu Landeros MD [facility] Procedures Code Procedure Name Date Entry Date Standard Description CPT-55224 Shoulder, right, comp min 2V - XRAY USE ONLY 13:50:22 CDT CPT-G0009 Administration of Pneumococcal Vaccine 15:08:26 CDT CPT-39891 Prevnar 13 Intramuscular Suspension 15:08:26 CDT 10/08 CPT-G0439 [facility] Annual Wellness Exam 14:29:22 CDT CPT-86724 Venipuncture Draw Fee 13:15:35 CDT CPT-98033 Magnesium - LAB USE ONLY 11:14:20 WELLNESS EDUCATOR CPT-58764 Lipid - LAB USE ONLY 11:14:20 WELLNESS EDUCATOR CPT-25855 HGBA1C - LAB USE ONLY 11:14:20 WELLNESS EDUCATOR CPT-66448 CMP - LAB USE ONLY 11:14:19 WELLNESS EDUCATOR CPT-59214 CBC - LAB USE ONLY 11:14:19 WELLNESS EDUCATOR CPT-25545 Venipuncture Draw Fee 11:14:18 WELLNESS EDUCATOR CPT-99709 First Vx - Ix admin for Medicare patients 16:46:52 CDT CPT-25354 Fluzone Preservative Free Intramuscular Suspension 16:46 :51 CDT CPT-63784 CBC - LAB USE ONLY 17:14:46 CDT CPT-14497 HGBA1C - LAB USE ONLY 17:14:46 CDT CPT-02596 Venipuncture Draw Fee 17:14:46 CDT CPT-G0438 Initial Annual Wellness Exam 14:13:04 CDT CPT-15792 Breathing Tx 10:06:54 WELLNESS EDUCATOR CPT-22591 Postop F/U Visit 10:02:45 CDT CPT-LR Lesion Removal 09:02:56 CDT CPT-JTINJ Asp/Joint Injection 15:51:27 WELLNESS EDUCATOR CPT-OV Office Visit 15:52:02 WELLNESS EDUCATOR CPT-OV Office Visit 15:45:11 CDT CPT-000 Give Zostavax 14:09:06 CDT CPT-33729 Administration single or combination vaccine inc oral 15 :19:04 CDT CPT-76192 Zoster Vaccine (Zostavax) 15:19:04 CDT CPT-01988 Administration single or combination vaccine inc oral 20 :51:03 CDT CPT-17845 Influenza split virus > age 3 20:51:03 CDT CPT-34709 No Charge Offi Visit 14:52:03 CDT CPT-OV Office Visit 14:57:43 CDT CPT-OV Office Visit 15:22:32 CDT CPT-02594 Administration single or combination vaccine inc oral 11 :33:15 CDT CPT-73788 Influenza split virus > age 3 11:33:15 CDT
--- OUTSIDE RECORDS SUMMARY | 2018-04-25 15:57 | XMS REPORT | Clinical Summary ---
Author Author Admin, SACHI Clemons [facility] Address Unknown Phone Unavailable Allergies, Adverse [...] of abdominal wall, anterior, complicated ICD-879.3 Tessa Landeors MD Upper respiratory infection, viral ICD-465.9 Tessa [...] tablet by mouth twice daily METFORMIN HCL 41058429303 Active Tu Landeros MD Active FLONASE 50 MCG/ACT SUSP 1 spray each nostril twice daily until bottle empty FLUTICASONE PROPIONATE 88364604869 No Longer Active Tu Landeros MD Active COLACE 100 MG CAP 1 po BID PRN Constipation DOCUSATE SODIUM 52442730450 Active Tu Landeros MD Active SIMVASTATIN 40 MG TABS 0.5 tab daily at bedtime SIMVASTATIN 16731678818 Active JASPREET Moffett Active TRUERESULT BLOOD GLUCOSE W/DEVICE KIT test blood sugar twice daily dx 250.00 BLOOD GLUCOSE MONITORING SUPPL 09454989634 No Longer Active Tu Landeros MD Active TRUEDRAW LANCING DEVICE MISC Test twice a day dx 250.0 LANCET DEVICES 53274361463 No Longer Active Tu Landeros MD Active PREDNISONE 20 MG TAB 2 tablets once daily for 2 days, then 1 tablet once daily for 2 days PREDNISONE 21285179121 No Longer Active Tu Landeros MD Active DICLOFENAC SODIUM 50 MG TBEC 1 tablet by mouth three times a day as needed DICLOFENAC SODIUM 34155527750 No Longer Active Fab Morales DO Active TRUEDRAW LANCING DEVICE MISC test blood sugar twice daily dx: 250.00 LANCET DEVICES 94245167472 Active Tu Landeros MD Active TRUETEST TEST INVITR STRP test blood sugar twice daily. DX 250.0 GLUCOSE BLOOD 68337647855 Active Tu Landeros MD Active EMBRACE BLOOD GLUCOSE TEST STRP test blood sugar twice daily DX 250.0 2014 GLUCOSE BLOOD 34214375786 No Longer Active Tu Landeros MD Active TRUETEST TEST STRP test blood sugar three times daily dx: 250.00 GLUCOSE BLOOD 13361376985 No Longer Active Suze VOGEL Active TRUERESULT BLOOD GLUCOSE W/DEVICE KIT use to test blood sugar tid dx: 250.00 BLOOD GLUCOSE MONITORING SUPPL 98265421735 No Longer Active Suze Nicole RMA Active ALIGN 4 MG CAPS 1 tid PROBIOTIC PRODUCT 01212114679 No Longer Active Shaun Sy MD Active CIPRO 500 MG TABS 1 bid x 14 days start 09-28-13 CIPROFLOXACIN HCL 11462971056 No Longer Active Shaun Sy MD Active TRAMADOL HCL 50 MG TABS 1-2 tablets every 6 hours as needed for pain TRAMADOL HCL 81669273905 Active Simon Smith MD Active HYDROCODONE-ACETAMINOPHEN 5-325 MG TABS 1 tab by mouth every 6 hours as needed for pain HYDROCODONE-ACETAMINOPHEN 91573250340 No Longer Active Tu Landeros MD Active OMEPRAZOLE 20 MG CPDR 1 po q a.m. OMEPRAZOLE 76051847616 Active Tu Landeros MD Active GABAPENTIN 100 MG CAPS 1 po bid GABAPENTIN 62569418000 No Longer Active Tu Landeros MD Active B-12 100 MCG TABS Take one by mouth daily CYANOCOBALAMIN 82198023787 No Longer Active Tu Landeros MD Active GABAPENTIN 100 MG CAPS by mouth twice a day GABAPENTIN 66660180725 Active Tu Landeros MD Active BACTRIM DS 800-160 MG TABS 1 bid x 14 day start 09-28-13 SULFAMETHOXAZOLE-TRIMETHOPRIM 89996001713 No Longer Active Tu Landeros MD Active CARVEDILOL 12.5 MG TABS 1 po BID CARVEDILOL 99359876779 Active Tu Landeros MD Active SUPER B COMPLEX/VITAMIN C TABS 1 qd B COMPLEX-C 65010911433 Active JASPREET Perez Active TRILIPIX 135 MG CPDR 1 q hs CHOLINE FENOFIBRATE 13706837724 Active Tu Landeros MD Active FENOFIBRATE 145 MG TABS 1 po qd FENOFIBRATE 39728446566 No Longer Active JASPREET Perez Active OMEPRAZOLE 20 MG TBEC 1 PO 30 MIN BEFORE 1ST MEAL OMEPRAZOLE 36837922531 No Longer Active JASPREET Perez Active SIMVASTATIN 40 MG TABS Take one by mouth daily SIMVASTATIN 68608377748 No Longer Active JASPREET Perez Active VENLAFAXINE HCL 37.5 MG TABS 1 bid VENLAFAXINE HCL 58782722005 Active Tu Landeros MD Active VENLAFAXINE HCL 75 MG TABS 1 po BID VENLAFAXINE HCL 23740315913 No Longer Active JASPREET Perez Active CIPRO 500 MG TAB 1 tablet by mouth twice daily CIPROFLOXACIN HCL 99866703990 No Longer Active Tu Landeros MD Active VENLAFAXINE HCL 37.5 MG TABS 1 po BID VENLAFAXINE HCL 15057102659 No Longer Active Suze NUNO Active LAMISIL 250 MG TAB 1 po qd TERBINAFINE HCL 36368933164 No Longer Active Tu Landeros MD Active LORTAB 5 5-500 MG TABS 1/2 to 1 tablet by mouth every 4 hours as needed for pain HYDROCODONE-ACETAMINOPHEN 57918864963 No Longer Active Tu Landeros MD Active ENALAPRIL MALEATE 20 MG TABS 1.5 po qd ENALAPRIL MALEATE 66810915310 Active Tu Landeros MD Active HYDROCODONE-ACETAMINOPHEN 5-500 MG TABS take one po Q 4-6 hours prn HYDROCODONE-ACETAMINOPHEN 75338574557 No Longer Active Tu Landeros MD Active BACTRIM DS 800-160 MG TABS 1 po BID x 7 days SULFAMETHOXAZOLE-TRIMETHOPRIM 78205237769 No Longer Active Tu Landeros MD Active VENLAFAXINE HCL 75 MG TABS 1 po BID VENLAFAXINE HCL 32731803817 No Longer Active Elvira Cervantes MD PhD Active TRAMADOL HCL 50 MG TABS 1 tablets every 6 hours as needed for pain TRAMADOL HCL 57188984282 No Longer Active Tu Landeros MD Active ACCU-CHEK FASTCLIX LANCETS MISC Use to check bloodsugar three times daily as needed LANCETS 84269900396 No Longer Active Tu Landeros MD Active ACCU-CHEK KEYONA PLUS STRP Use for testing bloodsugars three times daily as needed GLUCOSE BLOOD 89040895502 No Longer Active Tu Landeros MD Active ACCU-CHEK KEYONA PLUS W/DEVICE KIT Use for testing bloodsugars three times daily as needed BLOOD GLUCOSE MONITORING SUPPL 41070691560 No Longer Active Tu Landeros MD Active SPIRONOLACTONE 25 MG TAB 0.5 tablet by mouth daily SPIRONOLACTONE 00892037847 No Longer Active Tu Landeros MD Active ALPRAZOLAM 0.5 MG TABS 1 tab every 6hrs as needed ALPRAZOLAM 06330499819 No Longer Active Tu Landeros MD Active AUGMENTIN 875-125 MG TAB 1 tab by mouth twice daily with food AMOXICILLIN-POT CLAVULANATE 51378227345 No Longer Active Tu Landeros MD Active PREDNISONE 20 MG TAB 2 tabs daily for 3 days, 1 tab daily for 3 days, 1/2 tab daily for 2 days PREDNISONE 78510745953 No Longer Active Tu Landeros MD Active XANAX 0.5 MG TABS 1 tablet every 6 hrs prn ALPRAZOLAM 01047691236 No Longer Active Tu Landeros MD Active PREDNISONE 20 MG TAB 2 tabs daily for 3 days, 1 tab daily for 3 days, 1/2 tab daily for 2 days PREDNISONE 78303730373 No Longer Active Tu Landeros MD Active TRIAMCINOLONE ACETONIDE 0.1 % OINT Apply to affected areas TID for up to 2 weeks TRIAMCINOLONE ACETONIDE 82223286202 No Longer Active Tu Landeros MD Active LORTAB 5 5-500 MG TABS 1/2 to 1 tablet by mouth every 4 hours as needed for pain HYDROCODONE-ACETAMINOPHEN 90753831730 No Longer Active Tu Landeros MD Active MULTIVITAMINS TABS Take one by mouth daily MULTIPLE VITAMIN 20818865500 No Longer Active Tu Landeros MD Active MELATONIN 5 MG TABS Take one by mouth daily MELATONIN 07091373266 No Longer Active Tu Landeros MD Active SOMA 350 MG TAB 1 po q 6 hours prn spasm CARISOPRODOL 26386488527 No Longer Active Tu Landeros MD Active MECLIZINE HCL 25 MG CHEW TAB 1 four times a day as needed for dizziness 08/05 MECLIZINE HCL 72589798290 No Longer Active Fab Morales DO Active ANGEL BREEZE 2 TEST DISK test tid prn GLUCOSE BLOOD 82548248151 No Longer Active Negra Scott RN Active REGLAN 10 MG TAB 1 po TID PRN [place]ause[place] METOCLOPRAMIDE HCL 55897760267 No Longer Active Tu Landeros MD Active METFORMIN HCL 500 MG TABS 1 PO BID METFORMIN HCL 47096299964 No Longer Active Tu Landeros MD Active AMBIEN 10 MG TAB 1 tab by mouth at bedtime as needed for sleep ZOLPIDEM TARTRATE 47934998529 No Longer Active Tu Landeros MD Active FLUOXETINE HCL 40 MG CAPS 1 po q day FLUOXETINE HCL 89755709448 No Longer Active Mayra [place] Active FISH OIL 1000 MG CAPS Take one by mouth daily OMEGA-3 FATTY ACIDS 92182254316 Active Tu Landeros MD Active GLUCOSAMINE 500 MG TABS Take 2 tab po qd GLUCOSAMINE 77000650873 Active Tu Landeros MD Active TRILIPIX 135 MG CPDR 1 po qd CHOLINE FENOFIBRATE 76903694260 No Longer Active Tu Landeros MD Active ASPIRIN 81 MG CHEW TAB 1 tablet by mouth daily ASPIRIN 79967719433 Active Tu Landeros MD Active FUROSEMIDE 40 MG TAB 1 tablet by mouth daily FUROSEMIDE 65332769397 Active Tu Landeros MD Active REQUIP 2 MG TABS Take one tablet at bedtime prn ROPINIROLE HCL 79960173054 Active Tu Landeros MD Active KLOR-CON 10 10 MEQ CR-TABS TAKE 2 TABS DAILY POTASSIUM CHLORIDE 82185819206 Active Tu Landeros MD Active AMBIEN 10 MG TAB 1 tab by mouth at bedtime as needed for sleep AMBIEN 10 MG TAB 308784 ZOLPIDEM TARTRATE Inactive METFORMIN HCL 500 MG TABS 1 PO BID METFORMIN HCL 500 MG TABS 495789 METFORMIN HCL Inactive REGLAN 10 MG TAB 1 po TID PRN Nausea REGLAN 10 MG TAB 206957 METOCLOPRAMIDE HCL Inactive MECLIZINE HCL 25 MG CHEW TAB 1 four times a day as needed for dizziness 08/05 MECLIZINE HCL 25 MG CHEW TAB 899294 MECLIZINE HCL Inactive SOMA 350 MG TAB 1 po q 6 hours prn spasm SOMA 350 MG TAB 048354 CARISOPRODOL Inactive MELATONIN 5 MG TABS Take one by mouth daily MELATONIN 5 MG TABS 753574 MELATONIN Inactive MULTIVITAMINS TABS Take one by mouth daily MULTIVITAMINS TABS MULTIPLE VITAMIN Inactive LORTAB 5 5-500 MG TABS 1/2 to 1 tablet by mouth every 4 hours as needed for pain LORTAB 5 5-500 MG TABS HYDROCODONE- ACETAMINOPHEN Inactive XANAX 0.5 MG TABS 1 tablet every 6 hrs prn XANAX 0.5 MG TABS 863392 ALPRAZOLAM Inactive AUGMENTIN 875-125 MG TAB 1 tab by mouth twice daily with food AUGMENTIN 875-125 MG TAB 933925 AMOXICILLIN-POT CLAVULANATE Inactive ALPRAZOLAM 0.5 MG TABS 1 tab every 6hrs as needed ALPRAZOLAM 0.5 MG TABS 281723 ALPRAZOLAM Inactive SPIRONOLACTONE 25 MG TAB 0.5 tablet by mouth daily SPIRONOLACTONE 25 MG TAB 498235 SPIRONOLACTONE Inactive ACCU-CHEK KEYONA PLUS W/DEVICE KIT Use for testing bloodsugars three times daily as needed ACCU-CHEK KEYONA PLUS W/DEVICE KIT BLOOD GLUCOSE MONITORING SUPPL Inactive ACCU-CHEK KEYONA PLUS STRP Use for testing bloodsugars three times daily as needed ACCU-CHEK KEYONA PLUS STRP GLUCOSE BLOOD Inactive ACCU-CHEK FASTCLIX LANCETS MISC Use to check bloodsugar three times daily as needed ACCU-CHEK FASTCLIX LANCETS MISC 06926727283 LANCETS Inactive TRAMADOL HCL 50 MG TABS 1 tablets every 6 hours as needed for pain TRAMADOL HCL 50 MG TABS 834991 TRAMADOL HCL Inactive VENLAFAXINE HCL 75 MG TABS 1 po BID VENLAFAXINE HCL 75 MG TABS 682732 VENLAFAXINE HCL Inactive HYDROCODONE-ACETAMINOPHEN 5-500 MG TABS take one po Q 4-6 hours prn HYDROCODONE-ACETAMINOPHEN 5-500 MG TABS HYDROCODONE- ACETAMINOPHEN Inactive LORTAB 5 5-500 MG TABS 1/2 to 1 tablet by mouth every 4 hours as needed for pain LORTAB 5 5-500 MG TABS HYDROCODONE- ACETAMINOPHEN Inactive LAMISIL 250 MG TAB 1 po qd LAMISIL 250 MG TAB 753590 TERBINAFINE HCL Inactive VENLAFAXINE HCL 37.5 MG TABS 1 po BID VENLAFAXINE HCL 37.5 MG TABS 575185 VENLAFAXINE HCL Inactive CIPRO 500 MG TAB 1 tablet by mouth twice daily CIPRO 500 MG TAB 685887 CIPROFLOXACIN HCL Inactive VENLAFAXINE HCL 75 MG TABS 1 po BID VENLAFAXINE HCL 75 MG TABS 163036 VENLAFAXINE HCL Inactive SIMVASTATIN 40 MG TABS Take one by mouth daily SIMVASTATIN 40 MG TABS 950362 SIMVASTATIN Inactive OMEPRAZOLE 20 MG TBEC 1 PO 30 MIN BEFORE 1ST MEAL OMEPRAZOLE 20 MG TBEC 829373 OMEPRAZOLE Inactive FENOFIBRATE 145 MG TABS 1 po qd FENOFIBRATE 145 MG TABS 096735 FENOFIBRATE Inactive BACTRIM DS 800-160 MG TABS 1 bid x 14 day start 09-28-13 BACTRIM DS 800-160 MG TABS 698582 SULFAMETHOXAZOLE-TRIMETHOPRIM Inactive B-12 100 MCG TABS Take one by mouth daily B-12 100 MCG TABS CYANOCOBALAMIN Inactive GABAPENTIN 100 MG CAPS 1 po bid GABAPENTIN 100 MG CAPS 192903 GABAPENTIN Inactive HYDROCODONE-ACETAMINOPHEN 5-325 MG TABS 1 tab by mouth every 6 hours as needed for pain HYDROCODONE-ACETAMINOPHEN 5-325 MG TABS 702490 HYDROCODONE-ACETAMINOPHEN Inactive CIPRO 500 MG TABS 1 bid x 14 days start 09-28-13 CIPRO 500 MG TABS 167317 CIPROFLOXACIN HCL Inactive ALIGN 4 MG CAPS [...] as needed DICLOFENAC SODIUM 50 MG TBEC 896648 DICLOFENAC SODIUM Inactive PREDNISONE 20 MG TAB 2 tablets once daily for 2 days, then 1 tablet once daily for 2 days PREDNISONE 20 MG TAB 034679 PREDNISONE Inactive TRUEDRAW LANCING DEVICE MISC Test [...] 2 weeks TRIAMCINOLONE ACETONIDE 0.1 % OINT 0500422 TRIAMCINOLONE ACETONIDE Inactive PREDNISONE 20 MG TAB 2 tabs daily for 3 days, 1 tab daily for 3 days, 1/2 tab daily for 2 days PREDNISONE 20 MG TAB 568785 PREDNISONE Inactive PREDNISONE 20 MG TAB 2 tabs daily for 3 days, 1 tab daily for 3 days, 1/2 tab daily for 2 days PREDNISONE 20 MG TAB 735287 PREDNISONE Inactive BACTRIM DS 800-160 MG TABS 1 po BID x 7 days BACTRIM DS 800-160 MG TABS 159728 SULFAMETHOXAZOLE-TRIMETHOPRIM Inactive Immunizations Vaccine Administration Date Value Standard Description Seasonal influenza vaccine, injectable, containing preservative, for > 3 years old (Afluria, FluLaval, Fluzone, Fluvirin, Fluarix, Agriflu(>=18 yo)) Fluzone (>3 yrs.) [[id number]] Influenza, seasonal, injectable influenza immunization (Flu Vax) has been administered 02/22/2012 influenza virus vaccine, unspecified formulation Seasonal influenza vaccine, injectable, containing preservative, for > 3 years old (Afluria, FluLaval, Fluzone, Fluvirin, Fluarix, Agriflu(>=18 yo)) Fluzone (>3 yrs.) [[id number]] Influenza, seasonal, injectable Vital Signs Date Name [...] CBC - Chemistry sodium, serum 143 mmol/L 608-676 6413/03/10 potassium, serum 4.9 mmol/L 3.5-5.2 chloride, serum [...] MICROALBUMIN - Chemistry sodium, serum 142 mmol/L 921-833 0443/10/08 potassium, serum 4.5 mmol/L 3.5-5.2 chloride, serum [...] 0.30 mg/dL 0.00-1.00 cholesterol, serum 111 mg/dL 041-240 6534/07/28 triglyceride, serum, fasting 177 mg/dL 30-200 HDL [...] Panel - Chemistry cholesterol, serum 124 mg/dL 564-296 2062/01/12 triglyceride, serum, fasting 135 mg/dL 30-200 HDL cholesterol, serum 41 mg/dL 32-96 LDL cholesterol, serum 56 mg/dL 0-130 sodium, serum 140 mmol/L 818-989 9219/01/12 carbon dioxide, venous blood 27.7 mmol/L 21.0-32.0 potassium, serum 4.5 mmol/L 3.5-5.2 chloride, serum 104 mmol/L 98-107 blood glucose 139 mg/dL 65-110 urea nitrogen, blood 16 mg/dL 7-18 alanine aminotransferase (SGPT), serum 32 U/L -78 aspartate aminotransferase (SGOT), serum 25 U/L 15-37 calcium, serum 9.1 mg/dL 8.5-10.1 bilirubin, serum, total 0.50 mg/dL 0.00-1.00 Encounters Code Encounter Date Provider Facility CPT-84436 Level 4 Est. Patient 13:50:18 HOME ENERGY RATER Tu Landeros MD [facility] CPT-42545 Level 3 Est. Patient 10:30:04 CDT Tu Landeros MD [facility] CPT-40812 Level 4 Est. Patient 11:03:38 CDT Tu Landeros MD [facility] CPT-70085 Level 3 Est. Patient 10:20:44 CDT Fab Morales DO [facility] CPT-64443 Level 4 Est. Patient 14:38:57 CDT Tu Landeros MD [facility] CPT-49504 Level 4 Est. Patient 14:27:39 HOME ENERGY RATER Tu Landeros MD [facility] CPT-61915 Level 4 Est. Patient 09:45:25 CDT Tu Landeros MD [facility] CPT-30955 Level 4 Est. Patient 09:05:20 HOME ENERGY RATER Tu Landeros MD [facility] CPT-52696 Level 4 Est. Patient 14:09:06 CDT Tu Landeros MD [facility] CPT-72089 Level 3 Est. Patient 13:36:54 CDT Tu Landeros MD [facility] CPT-49284 Level 3 Est. Patient 08:59:14 CDT Tu Landeros MD [facility] CPT-95780 Level 3 Est. Patient 13:48:35 CDT Fab Morales DO [facility] CPT-77344 Level 4 Est. Patient 10:05:48 CDT Tu Landeros MD [facility] CPT-17234 Level 3 Est. Patient 13:38:42 CDT Marek BANKS [facility] CPT-74227 Level 5 Est. Patient 08:08:39 CDT Piyushrichajanelle Dawsontay FRANCIS [facility] CPT-96930 Level 4 Est. Patient 14:23:38 CDT Tu Landeros MD [facility] CPT-32669 Level 3 Est. Patient 11:44:04 CDT Tu Landeros MD [facility] CPT-95412 Level 3 Est. Patient 11:03:20 HOME ENERGY RATER Tu Landeros MD [facility] CPT-83663 Level 3 Est. Patient 11:03:14 HOME ENERGY RATER Tu Landeros MD [facility] CPT-78897 Level 3 Est. Patient 12:42:49 CDT Tu Landeros MD [facility] CPT-84265 Level 3 Est. Patient 11:52:06 CDT Tu Landeros MD [facility] CPT-91533 Level 3 Est. Patient 13:58:11 CDT Tu Landeros MD [facility] CPT-02672 Level 3 Est. Patient 17:50:07 CDT Fab Morales DO [facility] CPT-84724 Level 3 Est. Patient 12:06:29 CDT Elvira Cervantes MD [facility] CPT-47539 Level 3 Est. Patient 15:50:32 CDT Tu Landeros MD [facility] CPT-77134 Level 4 Est. Patient 16:08:29 CDT Tu Landeros MD [facility] CPT-88478 Level 3 Est. Patient 16:04:19 CDT Tu Landeros MD [facility] CPT-71580 Level 3 Est. Patient 11:22:30 HOME ENERGY RATER Tu Landeros MD [facility] CPT-16843 Level 4 Est. Patient 16:24:02 HOME ENERGY RATER Tu Landeros MD [facility] CPT-07379 Level 3 Est. Patient 17:21:23 HOME ENERGY RATER Tu Landeros MD [facility] Procedures Code Procedure Name Date Entry Date Standard Description CPT-55066 Postop F/U Visit 10:02:45 CDT CPT-LR Lesion Removal 09:02:56 CDT CPT-JTINJ Asp/Joint Injection 15:51:27 HOME ENERGY RATER CPT-OV Office Visit 15:52:02 HOME ENERGY RATER CPT-OV Office Visit 15:45:11 CDT CPT-000 Give Zostavax 14:09:06 CDT CPT-61844 Administration single or combination vaccine inc oral 15 :19:04 CDT CPT-31953 Zoster Vaccine (Zostavax) 15:19:04 CDT CPT-71115 Administration single or combination vaccine inc oral 20 :51:03 CDT CPT-58830 Influenza split virus > age 3 20:51:03 CDT CPT-17633 No Charge Offi Visit 14:52:03 CDT CPT-OV Office Visit 14:57:43 CDT CPT-OV Office Visit 15:22:32 CDT CPT-00845 Administration single or combination vaccine inc oral 11 :33:15 CDT CPT-67628 Influenza split virus > age 3 11:33:15 CDT
--- OUTSIDE RECORDS SUMMARY | 2018-04-25 15:59 | XMS REPORT | Clinical Summary ---
Author Author Admin, SACHI Organization [employer] Address Unknown Phone Unavailable Allergies, Adverse Reactions, Alerts Allergy Name Reaction Description Start Date Severity Status Provider GLIMPERIDE Critical Active Lelsi Kellogg APRN AMBIEN migraine h/a Critical Active [...] of abdominal wall, anterior, complicated ICD-879.3 Inactive uT Landeros MD Upper respiratory infection, viral ICD-465.9 [...] then 1 po qd x 4 AZITHROMYCIN 21451089482 Active Tu Landeros MD Active GUAIFENESIN ER 600 MG ORAL TABLET EXTENDED RELEASE 12 HOUR 1 twice a day as needed for congestion GUAIFENESIN 78063569752 No Longer Active Tu Landeros MD Active PREDNISONE 20 MG ORAL TABLET 2 po qd x 5 days PREDNISONE 59328847760 No Longer Active Tu Landeros MD Active PROMETHAZINE-CODEINE 6.25-10 MG/5ML ORAL SYRUP 5ml po q6hr PRN Cough PROMETHAZINE-CODEINE 93926332482 Active Tu Landeros MD Active FLUTICASONE PROPIONATE 50 MCG/ACT NASAL SUSPENSION 2 sprays/nostril qd PRN Congestion/Allergies FLUTICASONE PROPIONATE 56841501053 Active Tu Landeros MD Active NASONEX 50 MCG/ACT NASAL SUSPENSION 2 actuations in each nostril q day 07/15 MOMETASONE FUROATE 69348312736 No Longer Active Tu Landeros MD Active MAGNESIUM OXIDE 400 MG ORAL TABLET 1 po BID MAGNESIUM OXIDE 60387076889 Active Tu Landeros MD Active SIMVASTATIN 20 MG ORAL TABLET 0.5 po qHS SIMVASTATIN 08642688550 Active Tu Landeros MD Active DICLOFENAC SODIUM 75 MG ORAL TABLET DELAYED RELEASE 1 po BID PRN Pain DICLOFENAC SODIUM 17896610768 No Longer Active Tu Landeros MD Active GABAPENTIN 100 MG ORAL CAPSULE 1 po TID GABAPENTIN 63733250795 Active Tu Landeros MD Active DICLOFENAC SODIUM 50 MG ORAL TABLET DELAYED RELEASE 1 po BID PRN Pain DICLOFENAC SODIUM 18244965954 No Longer Active Tu Landeros MD Active CYCLOBENZAPRINE HCL 10 MG ORAL TABLET 1 po TID PRN Muscle Spasm CYCLOBENZAPRINE HCL 63543870435 No Longer Active Tu Landeros MD Active INVOKANA 100 MG ORAL TABLET 1 po qd CANAGLIFLOZIN 02548600476 Active Tu Landeros MD Active GLIPIZIDE 5 MG ORAL TABLET 1 po qd GLIPIZIDE 95658712720 No Longer Active Tu Landeros MD Active VENLAFAXINE HCL 75 MG ORAL TABLET 1 po BID VENLAFAXINE HCL 97263490386 Active Tu Landeros MD Active GLIMEPIRIDE 1 MG ORAL TABLET 1 po qd GLIMEPIRIDE 45230822691 No Longer Active Tu Landeros MD Active TRUE METRIX BLOOD GLUCOSE TEST IN VITRO STRIP Test blood sugar BID Dx: E11.9 GLUCOSE BLOOD 74443395492 Active Tu Landeros MD Active TRUE METRIX AIR GLUCOSE METER w/Device KIT Test blood glucose BID Dx: E11.9 BLOOD GLUCOSE MONITORING SUPPL 45049301394 Active Tu Landeros MD Active TRUETEST TEST IN VITRO STRIP test blood sugar twice daily. DX 250.0 GLUCOSE BLOOD 60756617364 No Longer Active Mirna Stanley LPN Active TRUEDRAW LANCING DEVICE test blood sugar twice daily dx: 250.00 LANCET DEVICES 67869224372 No Longer Active Mirna Stanley LPN Active ENALAPRIL MALEATE 20 MG ORAL TABLET 2 po qd ENALAPRIL MALEATE 64842120889 Active Tu Landeros MD Active SUPER B COMPLEX/VITAMIN C ORAL TABLET 1 qd B COMPLEX- C 61785942688 No Longer Active Tu Landeros MD Active ASPIRIN EC 81 MG ORAL TABLET DELAYED RELEASE 1 po qd ASPIRIN 05982414374 Active Tu Landeros MD Active GLUCOSAMINE 500 MG TABS 2 po qd GLUCOSAMINE Active Tu Landeros MD Active FISH OIL 1000 MG ORAL CAPSULE 1 po qd OMEGA-3 FATTY ACIDS 60696080372 Active Tu Landeros MD Active METFORMIN HCL 1000 MG ORAL TABLET 1 po BID METFORMIN HCL 22225524691 Active Tu Landeros MD Active KLOR-CON 10 10 MEQ ORAL TABLET EXTENDED RELEASE 2 po qd POTASSIUM CHLORIDE 53669323216 Active Tu Landeros MD Active FUROSEMIDE 40 MG ORAL TABLET 1 po qd FUROSEMIDE 73677197481 Active Tu Landeros MD Active REQUIP 2 MG ORAL TABLET 1 po qHS PRN Restless legs ROPINIROLE HCL 05736213119 Active Tu Landeros MD Active REQUIP 2 MG ORAL TABLET Take one tablet at bedtime prn ROPINIROLE HCL 31862473905 No Longer Active Tu Landeros MD Active VENTOLIN HFA 108 (90 Base) MCG/ACT INHALATION AEROSOL SOLUTION 1-2 puffs every 4 hours if needed for cough/congestion ALBUTEROL SULFATE 55147416952 No Longer Active Ambika Aden APRN Active ZITHROMAX 250 MG ORAL TABLET 2 po today, then 1 po q days 2-5 AZITHROMYCIN 59812418869 No Longer Active Miranda Farah APRN Active FLONASE 50 MCG/ACT NASAL SUSPENSION 1 spray each nostril twice daily until bottle empty FLUTICASONE PROPIONATE 45240537551 No Longer Active Tu Landeros MD Active COLACE 100 MG ORAL CAPSULE 1 po BID PRN Constipation DOCUSATE SODIUM 15197980105 Active Tu Landeros MD Active TRUERESULT BLOOD GLUCOSE w/Device KIT test blood sugar twice daily dx 250.00 BLOOD GLUCOSE MONITORING SUPPL 31214610165 No Longer Active Tu Landeros MD Active TRUEDRAW LANCING DEVICE Test twice a day dx 250.0 LANCET DEVICES 05038235109 No Longer Active Tu Landeros MD Active PREDNISONE 20 MG ORAL TABLET 2 tablets once daily for 2 days, then 1 tablet once daily for 2 days PREDNISONE 22594125961 No Longer Active Tu Landeros MD Active DICLOFENAC SODIUM 50 MG ORAL TABLET DELAYED RELEASE 1 tablet by mouth three times a day as needed DICLOFENAC SODIUM 91012602946 No Longer Active Fab Morales DO Active EMBRACE BLOOD GLUCOSE TEST IN VITRO STRIP test blood sugar twice daily DX 250.0 GLUCOSE BLOOD 20423224253 No Longer Active Tu Landeros MD Active TRUETEST TEST IN VITRO STRIP test blood sugar three times daily dx: 250.00 GLUCOSE BLOOD 72436530388 No Longer Active Suzebianca Nicole RMA Active TRUERESULT BLOOD GLUCOSE w/Device KIT use to test blood sugar tid dx: 250.00 BLOOD GLUCOSE MONITORING SUPPL 59695426598 No Longer Active Suze Corey RMA Active ALIGN 4 MG ORAL CAPSULE 1 tid PROBIOTIC PRODUCT 14152870888 No Longer Active Shaun Sy MD Active CIPRO 500 MG ORAL TABLET 1 bid x 14 days start 09-28-13 CIPROFLOXACIN HCL 17364400009 No Longer Active Shaun Sy MD Active TRAMADOL HCL 50 MG ORAL TABLET 1-2 tablets every 6 hours as needed for pain TRAMADOL HCL 10056316374 Active Tu Landeros MD Active HYDROCODONE-ACETAMINOPHEN 5-325 MG ORAL TABLET 1 tab by mouth every 6 hours as needed for pain HYDROCODONE-ACETAMINOPHEN 29669843275 No Longer Active Tu Landeros MD Active OMEPRAZOLE 20 MG ORAL CAPSULE DELAYED RELEASE 1 po q a.m. OMEPRAZOLE 88978293401 Active Fab Morales DO Active GABAPENTIN 100 MG ORAL CAPSULE 1 po bid GABAPENTIN 24895970867 No Longer Active Tu Landeros MD Active B-12 100 MCG ORAL TABLET Take one by mouth daily CYANOCOBALAMIN 35704207298 No Longer Active Tu Landeros MD Active BACTRIM DS 800-160 MG ORAL TABLET 1 bid x 14 day start 09-28-13 SULFAMETHOXAZOLE-TRIMETHOPRIM 70767422132 No Longer Active Tu Landeros MD Active CARVEDILOL 12.5 MG ORAL TABLET 1 po BID CARVEDILOL 29409051590 Active Tu Landeros MD Active TRILIPIX 135 MG ORAL CAPSULE DELAYED RELEASE 1 q hs CHOLINE FENOFIBRATE 19375416735 Active Tu Landeros MD Active FENOFIBRATE 145 MG ORAL TABLET 1 po qd FENOFIBRATE 22260422045 No Longer Active JASPREET Perez Active OMEPRAZOLE 20 MG ORAL TABLET DELAYED RELEASE 1 PO 30 MIN BEFORE 1ST MEAL 2010 OMEPRAZOLE 22561260275 No Longer Active JASPREET Perez Active SIMVASTATIN 40 MG ORAL TABLET Take one by mouth daily SIMVASTATIN 93375862482 No Longer Active JASPREET Perez Active VENLAFAXINE HCL 75 MG ORAL TABLET 1 po BID VENLAFAXINE HCL 08602939684 No Longer Active JASPREET Perez Active CIPRO 500 MG ORAL TABLET 1 tablet by mouth twice daily CIPROFLOXACIN HCL 64968340719 No Longer Active Tu Landeros MD Active VENLAFAXINE HCL 37.5 MG ORAL TABLET 1 po BID VENLAFAXINE HCL 98101446599 No Longer Active Suze VOGEL Active LAMISIL 250 MG ORAL TABLET 1 po qd TERBINAFINE HCL 85237948931 No Longer Active Tu Landeros MD Active LORTAB 5-500 MG ORAL TABLET 1/2 to 1 tablet by mouth every 4 hours as needed for pain HYDROCODONE-ACETAMINOPHEN 76992145314 No Longer Active Tu Landeros MD Active HYDROCODONE-ACETAMINOPHEN 5-500 MG ORAL TABLET take one po Q 4-6 hours prn HYDROCODONE-ACETAMINOPHEN 88911971327 No Longer Active Tu Landeros MD Active BACTRIM DS 800-160 MG ORAL TABLET 1 po BID x 7 days SULFAMETHOXAZOLE-TRIMETHOPRIM 67791787167 No Longer Active Tu Landeros MD Active VENLAFAXINE HCL 75 MG ORAL TABLET 1 po BID VENLAFAXINE HCL 03976826991 No Longer Active Elvira Cervantes MD PhD Active TRAMADOL HCL 50 MG ORAL TABLET 1 tablets every 6 hours as needed for pain TRAMADOL HCL 79249721064 No Longer Active Tu Landeros MD Active ACCU-CHEK FASTCLIX LANCETS Use to check bloodsugar three times daily as needed LANCETS 63969899232 No Longer Active Tu Landeros MD Active ACCU-CHEK KEYONA PLUS IN VITRO STRIP Use for testing bloodsugars three times daily as needed GLUCOSE BLOOD 36284981454 No Longer Active Tu Landeros MD Active ACCU-CHEK KEYONA PLUS w/Device KIT Use for testing bloodsugars three times daily as needed BLOOD GLUCOSE MONITORING SUPPL 51821215125 No Longer Active Tu Landeros MD Active SPIRONOLACTONE 25 MG ORAL TABLET 0.5 tablet by mouth daily 09/09 SPIRONOLACTONE 88849289191 No Longer Active Tu Landeros MD Active ALPRAZOLAM 0.5 MG ORAL TABLET 1 tab every 6hrs as needed ALPRAZOLAM 70231953160 No Longer Active Tu Landeros MD Active AUGMENTIN 875-125 MG ORAL TABLET 1 tab by mouth twice daily with food AMOXICILLIN-POT CLAVULANATE 75882913673 No Longer Active Tu Landeros MD Active PREDNISONE 20 MG ORAL TABLET 2 tabs daily for 3 days, 1 tab daily for 3 days, 1/2 tab daily for 2 days PREDNISONE 29774168727 No Longer Active Tu Landeros MD Active XANAX 0.5 MG ORAL TABLET 1 tablet every 6 hrs prn ALPRAZOLAM 06620096520 No Longer Active Tu Landeros MD Active PREDNISONE 20 MG ORAL TABLET 2 tabs daily for 3 days, 1 tab daily for 3 days, 1/2 tab daily for 2 days PREDNISONE 30549014848 No Longer Active Tu Landeros MD Active TRIAMCINOLONE ACETONIDE 0.1 % EXTERNAL OINTMENT Apply to affected areas TID for up to 2 weeks TRIAMCINOLONE ACETONIDE 06564060036 No Longer Active Tu Landeros MD Active LORTAB 5-500 MG ORAL TABLET 1/2 to 1 tablet by mouth every 4 hours as needed for pain HYDROCODONE-ACETAMINOPHEN 75257409985 No Longer Active Tu Landeros MD Active MULTIVITAMINS TABS Take one by mouth daily MULTIPLE VITAMIN 54493742612 No Longer Active Tu Landeros MD Active MELATONIN 5 MG ORAL TABLET Take one by mouth daily MELATONIN 59325216815 No Longer Active Tu Landeros MD Active SOMA 350 MG ORAL TABLET 1 po q 6 hours prn spasm CARISOPRODOL 78092594514 No Longer Active Tu Landeros MD Active MECLIZINE HCL 25 MG ORAL TABLET CHEWABLE 1 four times a day as needed for dizziness MECLIZINE HCL 61288313718 No Longer Active Fab Morales DO Active ANGEL BREEZE 2 TEST IN VITRO DISK test tid prn GLUCOSE BLOOD 65700374605 No Longer Active Negra Scott RN Active REGLAN 10 MG ORAL TABLET 1 po TID PRN Nausea METOCLOPRAMIDE HCL 22142591580 No Longer Active Tu Landeros MD Active METFORMIN HCL 500 MG ORAL TABLET 1 PO BID METFORMIN HCL 91974711805 No Longer Active Tu Landeros MD Active AMBIEN 10 MG ORAL TABLET 1 tab by mouth at bedtime as needed for sleep 06/10 ZOLPIDEM TARTRATE 81300161747 No Longer Active Tu Landeros MD Active FLUOXETINE HCL 40 MG ORAL CAPSULE 1 po q day FLUOXETINE HCL 44491932364 No Longer Active Mayra Terry Active TRILIPIX 135 MG ORAL CAPSULE DELAYED RELEASE 1 po qd CHOLINE FENOFIBRATE 86623613580 No Longer Active Tu Landeros MD Active AMBIEN 10 MG ORAL TABLET 1 tab by mouth at bedtime as needed for sleep 06/10 AMBIEN 10 MG ORAL TABLET 563434 ZOLPIDEM TARTRATE Inactive METFORMIN HCL 500 MG ORAL TABLET 1 PO BID METFORMIN HCL 500 MG ORAL TABLET 449907 METFORMIN HCL Inactive REGLAN 10 MG ORAL TABLET 1 po TID PRN Nausea REGLAN 10 MG ORAL TABLET 150105 METOCLOPRAMIDE HCL Inactive MECLIZINE HCL 25 MG ORAL TABLET CHEWABLE 1 four times a day as needed for dizziness MECLIZINE HCL 25 MG ORAL TABLET CHEWABLE 790104 MECLIZINE HCL Inactive SOMA 350 MG ORAL TABLET 1 po q 6 hours prn spasm SOMA 350 MG ORAL TABLET 440054 CARISOPRODOL Inactive MELATONIN 5 MG ORAL TABLET Take one by mouth daily MELATONIN 5 MG ORAL TABLET 993855 MELATONIN Inactive MULTIVITAMINS TABS Take one by mouth daily MULTIVITAMINS TABS MULTIPLE VITAMIN Inactive LORTAB 5-500 MG ORAL TABLET 1/2 to 1 tablet by mouth every 4 hours as needed for pain LORTAB 5-500 MG ORAL TABLET HYDROCODONE- ACETAMINOPHEN Inactive XANAX 0.5 MG ORAL TABLET 1 tablet every 6 hrs prn XANAX 0.5 MG ORAL TABLET 157341 ALPRAZOLAM Inactive AUGMENTIN 875-125 MG ORAL TABLET 1 tab by mouth twice daily with food AUGMENTIN 875-125 MG ORAL TABLET 824054 AMOXICILLIN-POT CLAVULANATE Inactive ALPRAZOLAM 0.5 MG ORAL TABLET 1 tab every 6hrs as needed ALPRAZOLAM 0.5 MG ORAL TABLET 809016 ALPRAZOLAM Inactive SPIRONOLACTONE 25 MG ORAL TABLET 0.5 tablet by mouth daily 09/09 SPIRONOLACTONE 25 MG ORAL TABLET 297868 SPIRONOLACTONE Inactive ACCU-CHEK KEYONA PLUS w/Device KIT [...] times daily as needed ACCU-CHEK FASTCLIX LANCETS 07753254547 LANCETS Inactive TRAMADOL HCL 50 MG ORAL TABLET 1 tablets every 6 hours as needed for pain TRAMADOL HCL 50 MG ORAL TABLET 415597 TRAMADOL HCL Inactive VENLAFAXINE HCL 75 MG ORAL TABLET 1 po BID VENLAFAXINE HCL 75 MG ORAL TABLET 824513 VENLAFAXINE HCL Inactive HYDROCODONE-ACETAMINOPHEN 5-500 MG ORAL TABLET take one po Q 4-6 hours prn HYDROCODONE-ACETAMINOPHEN 5-500 MG ORAL TABLET 794032 HYDROCODONE-ACETAMINOPHEN Inactive LORTAB 5-500 MG ORAL TABLET 1/2 to 1 tablet by mouth every 4 hours as needed for pain LORTAB 5-500 MG ORAL TABLET HYDROCODONE- ACETAMINOPHEN Inactive LAMISIL 250 MG ORAL TABLET 1 po qd LAMISIL 250 MG ORAL TABLET 559888 TERBINAFINE HCL Inactive VENLAFAXINE HCL 37.5 MG ORAL TABLET 1 po BID VENLAFAXINE HCL 37.5 MG ORAL TABLET 226715 VENLAFAXINE HCL Inactive CIPRO 500 MG ORAL TABLET 1 tablet by mouth twice daily CIPRO 500 MG ORAL TABLET 267997 CIPROFLOXACIN HCL Inactive VENLAFAXINE HCL 75 MG ORAL TABLET 1 po BID VENLAFAXINE HCL 75 MG ORAL TABLET 457904 VENLAFAXINE HCL Inactive SIMVASTATIN 40 MG ORAL TABLET Take one by mouth daily SIMVASTATIN 40 MG ORAL TABLET 263456 SIMVASTATIN Inactive OMEPRAZOLE 20 MG ORAL TABLET DELAYED RELEASE 1 PO 30 MIN BEFORE 1ST MEAL 2010 OMEPRAZOLE 20 MG ORAL TABLET DELAYED RELEASE 590564 OMEPRAZOLE Inactive FENOFIBRATE 145 MG ORAL TABLET 1 po qd FENOFIBRATE 145 MG ORAL TABLET 195574 FENOFIBRATE Inactive BACTRIM DS 800-160 MG ORAL TABLET 1 bid x 14 day start 09-28-13 BACTRIM DS 800-160 MG ORAL TABLET 622926 SULFAMETHOXAZOLE- TRIMETHOPRIM Inactive B-12 100 MCG ORAL TABLET Take one by mouth daily B-12 100 MCG ORAL TABLET CYANOCOBALAMIN Inactive GABAPENTIN 100 MG ORAL CAPSULE 1 po bid GABAPENTIN 100 MG ORAL CAPSULE 142252 GABAPENTIN Inactive HYDROCODONE-ACETAMINOPHEN 5-325 MG ORAL TABLET 1 tab by mouth every 6 hours as needed for pain HYDROCODONE-ACETAMINOPHEN 5-325 MG ORAL TABLET 906961 HYDROCODONE-ACETAMINOPHEN Inactive CIPRO 500 MG ORAL TABLET 1 bid x 14 days start 09-28-13 CIPRO 500 MG ORAL TABLET 788359 CIPROFLOXACIN HCL Inactive ALIGN 4 MG ORAL [...] SODIUM 50 MG ORAL TABLET DELAYED RELEASE 455961 DICLOFENAC SODIUM Inactive PREDNISONE 20 MG ORAL TABLET 2 tablets once daily for 2 days, then 1 tablet once daily for 2 days PREDNISONE 20 MG ORAL TABLET 213798 PREDNISONE Inactive TRUEDRAW LANCING DEVICE Test twice a day dx 250.0 TRUEDRAW LANCING DEVICE LANCET DEVICES Inactive TRUERESULT BLOOD GLUCOSE w/Device KIT test blood sugar twice daily dx 250.00 TRUERESULT BLOOD GLUCOSE w/Device KIT BLOOD GLUCOSE MONITORING SUPPL Inactive FLONASE 50 MCG/ACT NASAL SUSPENSION 1 spray each nostril twice daily until bottle empty FLONASE 50 MCG/ACT NASAL SUSPENSION 1457430 FLUTICASONE PROPIONATE Inactive VENTOLIN HFA 108 (90 Base) MCG/ACT INHALATION AEROSOL SOLUTION 1-2 puffs every 4 hours if needed for cough/congestion VENTOLIN HFA 108 (90 Base) MCG/ACT INHALATION AEROSOL SOLUTION ALBUTEROL SULFATE Inactive REQUIP 2 MG ORAL TABLET Take one tablet at bedtime prn REQUIP 2 MG ORAL TABLET 690506 ROPINIROLE HCL Inactive SUPER B COMPLEX/VITAMIN C ORAL TABLET 1 qd SUPER B COMPLEX/VITAMIN C ORAL TABLET 53425690678 B COMPLEX-C Inactive TRUEDRAW LANCING DEVICE test blood sugar twice daily dx: 250.00 TRUEDRAW LANCING DEVICE LANCET DEVICES Inactive TRUETEST TEST IN VITRO STRIP test blood sugar twice daily. DX 250.0 TRUETEST TEST IN VITRO STRIP GLUCOSE BLOOD Inactive CYCLOBENZAPRINE HCL 10 MG ORAL TABLET 1 po TID PRN Muscle Spasm CYCLOBENZAPRINE HCL 10 MG ORAL TABLET 680687 CYCLOBENZAPRINE HCL Inactive DICLOFENAC SODIUM 50 MG ORAL TABLET DELAYED RELEASE 1 po BID PRN Pain DICLOFENAC SODIUM 50 MG ORAL TABLET DELAYED RELEASE 285251 DICLOFENAC SODIUM Inactive DICLOFENAC SODIUM 75 MG ORAL TABLET DELAYED RELEASE 1 po BID PRN Pain DICLOFENAC SODIUM 75 MG ORAL TABLET DELAYED RELEASE 968535 DICLOFENAC SODIUM Inactive NASONEX 50 MCG/ACT NASAL SUSPENSION 2 actuations in each nostril q day 07/15 NASONEX 50 MCG/ACT NASAL SUSPENSION 1634609 MOMETASONE FUROATE Inactive GUAIFENESIN ER 600 MG ORAL TABLET EXTENDED RELEASE 12 HOUR 1 twice a day as needed for congestion GUAIFENESIN ER 600 MG ORAL TABLET EXTENDED RELEASE 12 HOUR GUAIFENESIN Inactive TRIAMCINOLONE ACETONIDE 0.1 % EXTERNAL OINTMENT Apply to affected areas TID for up to 2 weeks TRIAMCINOLONE ACETONIDE 0.1 % EXTERNAL OINTMENT 9127606 TRIAMCINOLONE ACETONIDE Inactive PREDNISONE 20 MG ORAL TABLET 2 tabs daily for 3 days, 1 tab daily for 3 days, 1/2 tab daily for 2 days PREDNISONE 20 MG ORAL TABLET 389041 PREDNISONE Inactive PREDNISONE 20 MG ORAL TABLET 2 tabs daily for 3 days, 1 tab daily for 3 days, 1/2 tab daily for 2 days PREDNISONE 20 MG ORAL TABLET 039065 PREDNISONE Inactive BACTRIM DS 800-160 MG ORAL TABLET 1 po BID x 7 days BACTRIM DS 800-160 MG ORAL TABLET 875520 SULFAMETHOXAZOLE-TRIMETHOPRIM Inactive ZITHROMAX 250 MG ORAL TABLET 2 po today, then 1 po q days 2-5 ZITHROMAX 250 MG ORAL TABLET 009350 AZITHROMYCIN Inactive PREDNISONE 20 MG ORAL TABLET 2 po qd x 5 days PREDNISONE 20 MG ORAL TABLET 523748 PREDNISONE Inactive Advance Directives Directive Description Start Date DISCUSSED WITH PATIENT -- NO DECISION MADE Immunizations Vaccine Administration Date Value Standard Description Seasonal influenza vaccine, injectable, containing preservative, for > 3 years old (Afluria, FluLaval, Fluzone, Fluvirin, Fluarix, Agriflu(>=18 yo)) Fluzone (>3 yrs.) [[id number]] Influenza, seasonal, injectable influenza immunization (Flu Vax) has been administered 02/22/2012 influenza virus vaccine, unspecified formulation Seasonal influenza vaccine, injectable, containing preservative, for > 3 years old (Afluria, FluLaval, Fluzone, Fluvirin, Fluarix, Agriflu(>=18 yo)) Fluzone (>3 yrs.) [[id number]] Influenza, seasonal, injectable Vital Signs Date Name [...] ... - Chemistry sodium, serum 141 mmol/L 198-683 9280/01/16 carbon dioxide, venous blood 28.3 mmol/L 21.0-32.0 [...] 6.7 % 4.3-6.0 cholesterol, serum 106 mg/dL 997-576 5141/01/16 triglyceride, serum, fasting 173 mg/dL 30-200 HDL [...] A1c - Chemistry cholesterol, serum 135 mg/dL 232-393 8722/05/17 HDL cholesterol, serum 41 mg/dL > OR=46 triglyceride, serum, fasting 206 mg/dL <150 LDL cholesterol, serum 53 MG/DL (CALC) mg/dL <130 cholesterol/HDL ratio, serum 3.3 (calc) < OR=5.0 Lab Report: HGBA1C - Chemistry hemoglobin A1C, blood, as % of total hemoglobin 6.5 % 4.3-6.0 Encounters Code Encounter Date Provider Facility CPT-24336 Level 3 Est. Patient 10:13:19 UX CONSULTANT Lesli Kellogg [employer] [facility] CPT-40941 Level 4 Est. Patient 13:42:02 UX CONSULTANT Tu Landeros MD [facility] CPT-52815 Level 3 Est. Patient 14:20:36 CDT Tu Landeros MD [facility] CPT-17091 Level 4 Est. Patient 14:28:34 CDT Tu Landeros MD [facility] CPT-00048 Level 3 Est. Patient 13:33:09 CDT Tu Landeros MD [facility] CPT-65079 Level 4 Est. Patient 14:29:21 CDT Tu Landeros MD [facility] CPT-03474 Level 4 Est. Patient 09:08:17 UX CONSULTANT Tu Landeros MD [facility] CPT-93118 Level 4 Est. Patient 14:40:19 CDT Tu Landeros MD [facility] CPT-06085 Level 4 Est. Patient 14:06:04 UX CONSULTANT Tu Landeros MD [facility] CPT-76150 Level 3 Est. Patient 14:05:18 UX CONSULTANT Tu Landeros MD [facility] CPT-00955 Level 3 Est. Patient 10:06:54 UX CONSULTANT Miranda Farah [employer] [facility] CPT-23045 Level 4 Est. Patient 13:50:18 UX CONSULTANT Tu Landeros MD [facility] CPT-37365 Level 3 Est. Patient 10:30:04 CDT Tu Landeros MD [facility] CPT-64521 Level 4 Est. Patient 11:03:38 CDT Tu Landeros MD [facility] CPT-01615 Level 3 Est. Patient 10:20:44 CDT Fab Morales DO [facility] CPT-90466 Level 4 Est. Patient 14:38:57 CDT Tu Landeros MD [facility] CPT-24960 Level 4 Est. Patient 14:27:39 UX CONSULTANT Tu Landeros MD [facility] CPT-90291 Level 4 Est. Patient 09:45:25 CDT Tu Landeros MD [facility] CPT-68970 Level 4 Est. Patient 09:05:20 UX CONSULTANT Tu Landeros MD [facility] CPT-71110 Level 4 Est. Patient 14:09:06 CDT Tu Landeros MD [facility] CPT-60113 Level 3 Est. Patient 13:36:54 CDT Tu Landeros MD [facility] CPT-64414 Level 3 Est. Patient 08:59:14 CDT Tu Landeros MD [facility] CPT-21384 Level 3 Est. Patient 13:48:35 CDT Fab Morales DO [facility] CPT-51188 Level 4 Est. Patient 10:05:48 CDT Tu Landeros MD [facility] CPT-29086 Level 3 Est. Patient 13:38:42 CDT Marek BANKS [facility] CPT-19135 Level 5 Est. Patient 08:08:39 CDT Jerrica FRANCIS [facility] CPT-41811 Level 4 Est. Patient 14:23:38 CDT Tu Landeros MD [facility] CPT-54378 Level 3 Est. Patient 11:44:04 CDT Tu Landeros MD [facility] CPT-83786 Level 3 Est. Patient 11:03:20 UX CONSULTANT Tu Landeros MD [facility] CPT-50681 Level 3 Est. Patient 11:03:14 UX CONSULTANT Tu Landeros MD [facility] CPT-78297 Level 3 Est. Patient 12:42:49 CDT Tu Landeros MD [facility] CPT-62813 Level 3 Est. Patient 11:52:06 CDT Tu Landeros MD [facility] CPT-40487 Level 3 Est. Patient 13:58:11 CDT Tu Landeros MD [facility] CPT-84309 Level 3 Est. Patient 17:50:07 CDT Fab Morales DO [facility] CPT-78574 Level 3 Est. Patient 12:06:29 CDT Elvira Cervantes MD PhD [facility] CPT-28189 Level 3 Est. Patient 15:50:32 CDT Tu Landeros MD [facility] CPT-67910 Level 4 Est. Patient 16:08:29 CDT Tu Ladneros MD [facility] CPT-65867 Level 3 Est. Patient 16:04:19 CDT Tu Landeros MD [facility] CPT-22048 Level 3 Est. Patient 11:22:30 UX CONSULTANT Tu Landeros MD [facility] CPT-65663 Level 4 Est. Patient 16:24:02 UX CONSULTANT Tu Landeros MD [facility] CPT-10122 Level 3 Est. Patient 17:21:23 UX CONSULTANT Tu Landeros MD [facility] Procedures Code Procedure Name Date Entry Date Standard Description CPT-91999 Shoulder, right, comp min 2V - XRAY USE ONLY 13:50:22 CDT CPT-G0009 Administration of Pneumococcal Vaccine 15:08:26 CDT CPT-85928 Prevnar 13 Intramuscular Suspension 15:08:26 CDT 10/08 CPT-G0439 [facility] Annual Wellness Exam 14:29:22 CDT CPT-95218 Venipuncture Draw Fee 13:15:35 CDT CPT-97673 Magnesium - LAB USE ONLY 11:14:20 UX CONSULTANT CPT-47782 Lipid - LAB USE ONLY 11:14:20 UX CONSULTANT CPT-76029 HGBA1C - LAB USE ONLY 11:14:20 UX CONSULTANT CPT-50224 CMP - LAB USE ONLY 11:14:19 UX CONSULTANT CPT-77878 CBC - LAB USE ONLY 11:14:19 UX CONSULTANT CPT-47449 Venipuncture Draw Fee 11:14:18 UX CONSULTANT CPT-71396 First Vx - Ix admin for Medicare patients 16:46:52 CDT CPT-11474 Fluzone Preservative Free Intramuscular Suspension 16:46 :51 CDT CPT-90624 CBC - LAB USE ONLY 17:14:46 CDT CPT-53552 HGBA1C - LAB USE ONLY 17:14:46 CDT CPT-75012 Venipuncture Draw Fee 17:14:46 CDT CPT-G0438 Initial Annual Wellness Exam 14:13:04 CDT CPT-36764 Breathing Tx 10:06:54 UX CONSULTANT CPT-58455 Postop F/U Visit 10:02:45 CDT CPT-LR Lesion Removal 09:02:56 CDT CPT-JTINJ Asp/Joint Injection 15:51:27 UX CONSULTANT CPT-OV Office Visit 15:52:02 UX CONSULTANT CPT-OV Office Visit 15:45:11 CDT CPT-000 Give Zostavax 14:09:06 CDT CPT-54937 Administration single or combination vaccine inc oral 15 :19:04 CDT CPT-42970 Zoster Vaccine (Zostavax) 15:19:04 CDT CPT-29379 Administration single or combination vaccine inc oral 20 :51:03 CDT CPT-79649 Influenza split virus > age 3 20:51:03 CDT CPT-73484 No Charge Offi Visit 14:52:03 CDT CPT-OV Office Visit 14:57:43 CDT CPT-OV Office Visit 15:22:32 CDT CPT-29985 Administration single or combination vaccine inc oral 11 :33:15 CDT CPT-32436 Influenza split virus > age 3 11:33:15 CDT
--- OUTSIDE RECORDS SUMMARY | 2018-04-25 16:00 | XMS REPORT | Clinical Summary ---
Author Author Admin, SACHI Organization [facility] Address Unknown Phone Unavailable Allergies, Adverse Reactions, [...] SCIATICA ICD-724.3 Inactive Tu Landeros MD 2012 GASTROENTERITIS ICD-558.9 Inactive Tu Landeros MD PARESTHESIA ICD-782.0 Tessa [...] OR LUMP ICD-782.2 Inactive Tu Landeros MD SHOULDER PAIN, LEFT ICD-719.41 Inactive Tu Landeros MD FATIGUE ICD-780.79 Inactive Tu Landeros MD 2012 Open wound of abdominal wall, anterior, complicated [...] Shoulder pain, right ICD-719.41 Tessa Landeros MD ONYCHOMYCOSIS ICD-110.1 Tessa Landeros MD Hot flashes ICD-627.2 Tessa Landeros MD Medication List Medication Instructions Start Date Stop Date Generic Name NDC Status Provider Patient Instruction DICLOFENAC SODIUM 75 MG ORAL TABLET DELAYED RELEASE 1 po BID PRN Pain DICLOFENAC SODIUM 37230566329 Active Tu Landeros MD Active GABAPENTIN 100 MG ORAL CAPSULE 1 po TID GABAPENTIN 91666448890 Active Tu Landeros MD Active DICLOFENAC SODIUM 50 MG ORAL TABLET DELAYED RELEASE 1 po BID PRN Pain DICLOFENAC SODIUM 98513443758 No Longer Active Tu Landeros MD Active CYCLOBENZAPRINE HCL 10 MG ORAL TABLET 1 po TID PRN Muscle Spasm CYCLOBENZAPRINE HCL 90022976710 No Longer Active Tu Landeros MD Active INVOKANA 100 MG ORAL TABLET 1 po qd CANAGLIFLOZIN 21349863313 Active Tu Landeros MD Active GLIPIZIDE 5 MG ORAL TABLET 1 po qd GLIPIZIDE 88829393767 No Longer Active Tu Landeros MD Active VENLAFAXINE HCL 75 MG ORAL TABLET 1 po BID VENLAFAXINE HCL 72939978627 Active Tu Landeros MD Active GLIMEPIRIDE 1 MG ORAL TABLET 1 po qd GLIMEPIRIDE 50434846801 No Longer Active Tu Landeros MD Active TRUE METRIX BLOOD GLUCOSE TEST IN VITRO STRIP Test blood sugar BID Dx: E11.9 GLUCOSE BLOOD 53033496895 Active Tu Landeros MD Active TRUE METRIX AIR GLUCOSE METER w/Device KIT Test blood glucose BID Dx: E11.9 BLOOD GLUCOSE MONITORING SUPPL 91989852425 Active Tu Landeros MD Active TRUETEST TEST IN VITRO STRIP test blood sugar twice daily. DX 250.0 GLUCOSE BLOOD 51469876990 No Longer Active Mirna Stanley LPN Active TRUEDRAW LANCING DEVICE test blood sugar twice daily dx: 250.00 LANCET DEVICES 60084805946 No Longer Active Mirna Stanley LPN Active ENALAPRIL MALEATE 20 MG ORAL TABLET 2 po qd ENALAPRIL MALEATE 72063006259 Active Tu Landeros MD Active SUPER B COMPLEX/VITAMIN C ORAL TABLET 1 qd B COMPLEX- C 50715154295 No Longer Active Tu Landeros MD Active ASPIRIN EC 81 MG ORAL TABLET DELAYED RELEASE 1 po qd ASPIRIN 77787043968 Active Tu Landeros MD Active GLUCOSAMINE 500 MG TABS 2 po qd GLUCOSAMINE Active Tu Landeros MD Active SIMVASTATIN 40 MG ORAL TABLET 0.5 po qHS SIMVASTATIN 01638345475 Active Tu Landeros MD Active FISH OIL 1000 MG ORAL CAPSULE 1 po qd OMEGA-3 FATTY ACIDS 07424207843 Active Tu Landeros MD Active METFORMIN HCL 1000 MG ORAL TABLET 1 po BID METFORMIN HCL 05617553064 Active Tu Landeros MD Active KLOR-CON 10 10 MEQ ORAL TABLET EXTENDED RELEASE 2 po qd POTASSIUM CHLORIDE 37255012555 Active Tu Landeros MD Active FUROSEMIDE 40 MG ORAL TABLET 1 po qd FUROSEMIDE 39659875491 Active Tu Landeros MD Active REQUIP 2 MG ORAL TABLET 1 po qHS PRN Restless legs ROPINIROLE HCL 30147506430 Active Tu Landeros MD Active REQUIP 2 MG ORAL TABLET Take one tablet at bedtime prn ROPINIROLE HCL 84166315289 No Longer Active Tu Landeros MD Active VENTOLIN HFA 108 (90 Base) MCG/ACT INHALATION AEROSOL SOLUTION 1-2 puffs every 4 hours if needed for cough/congestion ALBUTEROL SULFATE 01292084113 No Longer Active Ambika Aden APRN Active ZITHROMAX 250 MG ORAL TABLET 2 po today, then 1 po q days 2-5 AZITHROMYCIN 77710895826 No Longer Active Miranda Suresh APRN Active FLONASE 50 MCG/ACT NASAL SUSPENSION 1 spray each nostril twice daily until bottle empty FLUTICASONE PROPIONATE 67070828281 No Longer Active Tu Landeros MD Active COLACE 100 MG ORAL CAPSULE 1 po BID PRN Constipation DOCUSATE SODIUM 18902271286 Active Tu Landeros MD Active TRUERESULT BLOOD GLUCOSE w/Device KIT test blood sugar twice daily dx 250.00 BLOOD GLUCOSE MONITORING SUPPL 83616279413 No Longer Active Tu Landeros MD Active TRUEDRAW LANCING DEVICE Test twice a day dx 250.0 LANCET DEVICES 54349868114 No Longer Active Tu Landeros MD Active PREDNISONE 20 MG ORAL TABLET 2 tablets once daily for 2 days, then 1 tablet once daily for 2 days PREDNISONE 66169321547 No Longer Active Tu Landeros MD Active DICLOFENAC SODIUM 50 MG ORAL TABLET DELAYED RELEASE 1 tablet by mouth three times a day as needed DICLOFENAC SODIUM 19718262539 No Longer Active Fab Morales DO Active EMBRACE BLOOD GLUCOSE TEST IN VITRO STRIP test blood sugar twice daily DX 250.0 GLUCOSE BLOOD 60949056567 No Longer Active Tu Landeros MD Active TRUETEST TEST IN VITRO STRIP test blood sugar three times daily dx: 250.00 GLUCOSE BLOOD 49142564844 No Longer Active Suze Corey RMA Active TRUERESULT BLOOD GLUCOSE w/Device KIT use to test blood sugar tid dx: 250.00 BLOOD GLUCOSE MONITORING SUPPL 47840341734 No Longer Active Suze Corey RMA Active ALIGN 4 MG ORAL CAPSULE 1 tid PROBIOTIC PRODUCT 80130293492 No Longer Active Shaun Sy MD Active CIPRO 500 MG ORAL TABLET 1 bid x 14 days start 09-28-13 CIPROFLOXACIN HCL 61445170512 No Longer Active Shaun Sy MD Active TRAMADOL HCL 50 MG ORAL TABLET 1-2 tablets every 6 hours as needed for pain TRAMADOL HCL 96112557748 Active Tu Landeros MD Active HYDROCODONE-ACETAMINOPHEN 5-325 MG ORAL TABLET 1 tab by mouth every 6 hours as needed for pain HYDROCODONE-ACETAMINOPHEN 52298911418 No Longer Active Tu Landeros MD Active OMEPRAZOLE 20 MG ORAL CAPSULE DELAYED RELEASE 1 po q a.m. OMEPRAZOLE 51107461372 Active Fab Morales DO Active GABAPENTIN 100 MG ORAL CAPSULE 1 po bid GABAPENTIN 54448458067 No Longer Active Tu Landeros MD Active B-12 100 MCG ORAL TABLET Take one by mouth daily CYANOCOBALAMIN 53319594834 No Longer Active Tu Landeros MD Active BACTRIM DS 800-160 MG ORAL TABLET 1 bid x 14 day start 09-28-13 SULFAMETHOXAZOLE-TRIMETHOPRIM 63731524775 No Longer Active Tu Landeros MD Active CARVEDILOL 12.5 MG ORAL TABLET 1 po BID CARVEDILOL 80478667712 Active Tu Landeros MD Active TRILIPIX 135 MG ORAL CAPSULE DELAYED RELEASE 1 q hs CHOLINE FENOFIBRATE 29544168010 Active Tu Landeros MD Active FENOFIBRATE 145 MG ORAL TABLET 1 po qd FENOFIBRATE 78614751895 No Longer Active JASPREET Perez Active OMEPRAZOLE 20 MG ORAL TABLET DELAYED RELEASE 1 PO 30 MIN BEFORE 1ST MEAL 2010 OMEPRAZOLE 16758255594 No Longer Active JASPREET Perez Active SIMVASTATIN 40 MG ORAL TABLET Take one by mouth daily SIMVASTATIN 80824995716 No Longer Active JASPREET Perez Active VENLAFAXINE HCL 75 MG ORAL TABLET 1 po BID VENLAFAXINE HCL 01920187363 No Longer Active JASPREET Perez Active CIPRO 500 MG ORAL TABLET 1 tablet by mouth twice daily CIPROFLOXACIN HCL 27170079682 No Longer Active Tu Landeros MD Active VENLAFAXINE HCL 37.5 MG ORAL TABLET 1 po BID VENLAFAXINE HCL 97028913401 No Longer Active Suze VOGEL Active LAMISIL 250 MG ORAL TABLET 1 po qd TERBINAFINE HCL 30116095589 No Longer Active Tu Landeros MD Active LORTAB 5-500 MG ORAL TABLET 1/2 to 1 tablet by mouth every 4 hours as needed for pain HYDROCODONE-ACETAMINOPHEN 97870669738 No Longer Active Tu Landeros MD Active HYDROCODONE-ACETAMINOPHEN 5-500 MG ORAL TABLET take one po Q 4-6 hours prn HYDROCODONE-ACETAMINOPHEN 44402211113 No Longer Active Tu Landeros MD Active BACTRIM DS 800-160 MG ORAL TABLET 1 po BID x 7 days SULFAMETHOXAZOLE-TRIMETHOPRIM 94702643961 No Longer Active Tu Landeros MD Active VENLAFAXINE HCL 75 MG ORAL TABLET 1 po BID VENLAFAXINE HCL 23157327223 No Longer Active Elvira Cervantes MD PhD Active TRAMADOL HCL 50 MG ORAL TABLET 1 tablets every 6 hours as needed for pain TRAMADOL HCL 86389560938 No Longer Active Tu Landeros MD Active ACCU-CHEK FASTCLIX LANCETS Use to check bloodsugar three times daily as needed LANCETS 18083424345 No Longer Active Tu Landeros MD Active ACCU-CHEK KEYONA PLUS IN VITRO STRIP Use for testing bloodsugars three times daily as needed GLUCOSE BLOOD 68357390209 No Longer Active Tu Landeros MD Active ACCU-CHEK KEYONA PLUS w/Device KIT Use for testing bloodsugars three times daily as needed BLOOD GLUCOSE MONITORING SUPPL 59649583978 No Longer Active Tu Landeros MD Active SPIRONOLACTONE 25 MG ORAL TABLET 0.5 tablet by mouth daily 09/09 SPIRONOLACTONE 74784799365 No Longer Active Tu Landeros MD Active ALPRAZOLAM 0.5 MG ORAL TABLET 1 tab every 6hrs as needed ALPRAZOLAM 21691263758 No Longer Active Tu Landeros MD Active AUGMENTIN 875-125 MG ORAL TABLET 1 tab by mouth twice daily with food AMOXICILLIN-POT CLAVULANATE 96947492674 No Longer Active Tu Landeros MD Active PREDNISONE 20 MG ORAL TABLET 2 tabs daily for 3 days, 1 tab daily for 3 days, 1/2 tab daily for 2 days PREDNISONE 91902044055 No Longer Active Tu Landeros MD Active XANAX 0.5 MG ORAL TABLET 1 tablet every 6 hrs prn ALPRAZOLAM 81299952248 No Longer Active Tu Landeros MD Active PREDNISONE 20 MG ORAL TABLET 2 tabs daily for 3 days, 1 tab daily for 3 days, 1/2 tab daily for 2 days PREDNISONE 15646379937 No Longer Active Tu Landeros MD Active TRIAMCINOLONE ACETONIDE 0.1 % EXTERNAL OINTMENT Apply to affected areas TID for up to 2 weeks TRIAMCINOLONE ACETONIDE 72748962572 No Longer Active Tu Landeros MD Active LORTAB 5-500 MG ORAL TABLET 1/2 to 1 tablet by mouth every 4 hours as needed for pain HYDROCODONE-ACETAMINOPHEN 84795699593 No Longer Active Tu Landeros MD Active MULTIVITAMINS TABS Take one by mouth daily MULTIPLE VITAMIN 57398881514 No Longer Active Tu Landeros MD Active MELATONIN 5 MG ORAL TABLET Take one by mouth daily MELATONIN 46539862248 No Longer Active Tu Landeros MD Active SOMA 350 MG ORAL TABLET 1 po q 6 hours prn spasm CARISOPRODOL 65757891730 No Longer Active Tu Landeros MD Active MECLIZINE HCL 25 MG ORAL TABLET CHEWABLE 1 four times a day as needed for dizziness MECLIZINE HCL 78815771439 No Longer Active Fab Morales DO Active ANGEL BREEZE 2 TEST IN VITRO DISK test tid prn GLUCOSE BLOOD 65832402464 No Longer Active Negra Scott RN Active REGLAN 10 MG ORAL TABLET 1 po TID PRN Nausea METOCLOPRAMIDE HCL 34214648091 No Longer Active Tu Landeros MD Active METFORMIN HCL 500 MG ORAL TABLET 1 PO BID METFORMIN HCL 90041584821 No Longer Active Tu Landeros MD Active AMBIEN 10 MG ORAL TABLET 1 tab by mouth at bedtime as needed for sleep 06/10 ZOLPIDEM TARTRATE 77179933872 No Longer Active Tu Landeros MD Active FLUOXETINE HCL 40 MG ORAL CAPSULE 1 po q day FLUOXETINE HCL 64298581272 No Longer Active Mayra Kelliher Active TRILIPIX 135 MG ORAL CAPSULE DELAYED RELEASE 1 po qd CHOLINE FENOFIBRATE 76035367640 No Longer Active Tu Landeros MD Active AMBIEN 10 MG ORAL TABLET 1 tab by mouth at bedtime as needed for sleep 06/10 AMBIEN 10 MG ORAL TABLET 648315 ZOLPIDEM TARTRATE Inactive METFORMIN HCL 500 MG ORAL TABLET 1 PO BID METFORMIN HCL 500 MG ORAL TABLET 020521 METFORMIN HCL Inactive REGLAN 10 MG ORAL TABLET 1 po TID PRN Nausea REGLAN 10 MG ORAL TABLET 327634 METOCLOPRAMIDE HCL Inactive MECLIZINE HCL 25 MG ORAL TABLET CHEWABLE 1 four times a day as needed for dizziness MECLIZINE HCL 25 MG ORAL TABLET CHEWABLE 276516 MECLIZINE HCL Inactive SOMA 350 MG ORAL TABLET 1 po q 6 hours prn spasm SOMA 350 MG ORAL TABLET 569302 CARISOPRODOL Inactive MELATONIN 5 MG ORAL TABLET Take one by mouth daily MELATONIN 5 MG ORAL TABLET 099256 MELATONIN Inactive MULTIVITAMINS TABS Take one by mouth daily MULTIVITAMINS TABS MULTIPLE VITAMIN Inactive LORTAB 5-500 MG ORAL TABLET 1/2 to 1 tablet by mouth every 4 hours as needed for pain LORTAB 5-500 MG ORAL TABLET 602916 HYDROCODONE-ACETAMINOPHEN Inactive XANAX 0.5 MG ORAL TABLET 1 tablet every 6 hrs prn XANAX 0.5 MG ORAL TABLET 251554 ALPRAZOLAM Inactive AUGMENTIN 875-125 MG ORAL TABLET 1 tab by mouth twice daily with food AUGMENTIN 875-125 MG ORAL TABLET 676197 AMOXICILLIN-POT CLAVULANATE Inactive ALPRAZOLAM 0.5 MG ORAL TABLET 1 tab every 6hrs as needed ALPRAZOLAM 0.5 MG ORAL TABLET 299353 ALPRAZOLAM Inactive SPIRONOLACTONE 25 MG ORAL TABLET 0.5 tablet by mouth daily 09/09 SPIRONOLACTONE 25 MG ORAL TABLET 585595 SPIRONOLACTONE Inactive ACCU-CHEK KEYONA PLUS w/Device KIT [...] times daily as needed ACCU-CHEK FASTCLIX LANCETS 45980836915 LANCETS Inactive TRAMADOL HCL 50 MG ORAL TABLET 1 tablets every 6 hours as needed for pain TRAMADOL HCL 50 MG ORAL TABLET 608141 TRAMADOL HCL Inactive VENLAFAXINE HCL 75 MG ORAL TABLET 1 po BID VENLAFAXINE HCL 75 MG ORAL TABLET 055893 VENLAFAXINE HCL Inactive HYDROCODONE-ACETAMINOPHEN 5-500 MG ORAL TABLET take one po Q 4-6 hours prn HYDROCODONE-ACETAMINOPHEN 5-500 MG ORAL TABLET 558973 HYDROCODONE-ACETAMINOPHEN Inactive LORTAB 5-500 MG ORAL TABLET 1/2 to 1 tablet by mouth every 4 hours as needed for pain LORTAB 5-500 MG ORAL TABLET 995257 HYDROCODONE-ACETAMINOPHEN Inactive LAMISIL 250 MG ORAL TABLET 1 po qd LAMISIL 250 MG ORAL TABLET 707380 TERBINAFINE HCL Inactive VENLAFAXINE HCL 37.5 MG ORAL TABLET 1 po BID VENLAFAXINE HCL 37.5 MG ORAL TABLET 152212 VENLAFAXINE HCL Inactive CIPRO 500 MG ORAL TABLET 1 tablet by mouth twice daily CIPRO 500 MG ORAL TABLET 885959 CIPROFLOXACIN HCL Inactive VENLAFAXINE HCL 75 MG ORAL TABLET 1 po BID VENLAFAXINE HCL 75 MG ORAL TABLET 418771 VENLAFAXINE HCL Inactive SIMVASTATIN 40 MG ORAL TABLET Take one by mouth daily SIMVASTATIN 40 MG ORAL TABLET 959652 SIMVASTATIN Inactive OMEPRAZOLE 20 MG ORAL TABLET DELAYED RELEASE 1 PO 30 MIN BEFORE 1ST MEAL 2010 OMEPRAZOLE 20 MG ORAL TABLET DELAYED RELEASE 408412 OMEPRAZOLE Inactive FENOFIBRATE 145 MG ORAL TABLET 1 po qd FENOFIBRATE 145 MG ORAL TABLET 709888 FENOFIBRATE Inactive BACTRIM DS 800-160 MG ORAL TABLET 1 bid x 14 day start 09-28-13 BACTRIM DS 800-160 MG ORAL TABLET 489322 SULFAMETHOXAZOLE- TRIMETHOPRIM Inactive B-12 100 MCG ORAL TABLET Take one by mouth daily B-12 100 MCG ORAL TABLET CYANOCOBALAMIN Inactive GABAPENTIN 100 MG ORAL CAPSULE 1 po bid GABAPENTIN 100 MG ORAL CAPSULE 837814 GABAPENTIN Inactive HYDROCODONE-ACETAMINOPHEN 5-325 MG ORAL TABLET 1 tab by mouth every 6 hours as needed for pain HYDROCODONE-ACETAMINOPHEN 5-325 MG ORAL TABLET 514076 HYDROCODONE-ACETAMINOPHEN Inactive CIPRO 500 MG ORAL TABLET 1 bid x 14 days start 09-28-13 CIPRO 500 MG ORAL TABLET 112872 CIPROFLOXACIN HCL Inactive ALIGN 4 MG ORAL [...] SODIUM 50 MG ORAL TABLET DELAYED RELEASE 010159 DICLOFENAC SODIUM Inactive PREDNISONE 20 MG ORAL TABLET 2 tablets once daily for 2 days, then 1 tablet once daily for 2 days PREDNISONE 20 MG ORAL TABLET 387989 PREDNISONE Inactive TRUEDRAW LANCING DEVICE Test twice a day dx 250.0 TRUEDRAW LANCING DEVICE LANCET DEVICES Inactive TRUERESULT BLOOD GLUCOSE w/Device KIT test blood sugar twice daily dx 250.00 TRUERESULT BLOOD GLUCOSE w/Device KIT BLOOD GLUCOSE MONITORING SUPPL Inactive FLONASE 50 MCG/ACT NASAL SUSPENSION 1 spray each nostril twice daily until bottle empty FLONASE 50 MCG/ACT NASAL SUSPENSION 7845523 FLUTICASONE PROPIONATE Inactive VENTOLIN HFA 108 (90 Base) MCG/ACT INHALATION AEROSOL SOLUTION 1-2 puffs every 4 hours if needed for cough/congestion VENTOLIN HFA 108 (90 Base) MCG/ACT INHALATION AEROSOL SOLUTION ALBUTEROL SULFATE Inactive REQUIP 2 MG ORAL TABLET Take one tablet at bedtime prn REQUIP 2 MG ORAL TABLET 694433 ROPINIROLE HCL Inactive SUPER B COMPLEX/VITAMIN C ORAL TABLET 1 qd SUPER B COMPLEX/VITAMIN C ORAL TABLET 68492360142 B COMPLEX-C Inactive TRUEDRAW LANCING DEVICE test blood sugar twice daily dx: 250.00 TRUEDRAW LANCING DEVICE LANCET DEVICES Inactive TRUETEST TEST IN VITRO STRIP test blood sugar twice daily. DX 250.0 TRUETEST TEST IN VITRO STRIP GLUCOSE BLOOD Inactive CYCLOBENZAPRINE HCL 10 MG ORAL TABLET 1 po TID PRN Muscle Spasm CYCLOBENZAPRINE HCL 10 MG ORAL TABLET 140429 CYCLOBENZAPRINE HCL Inactive DICLOFENAC SODIUM 50 MG ORAL TABLET DELAYED RELEASE 1 po BID PRN Pain DICLOFENAC SODIUM 50 MG ORAL TABLET DELAYED RELEASE 005117 DICLOFENAC SODIUM Inactive TRIAMCINOLONE ACETONIDE 0.1 % EXTERNAL OINTMENT Apply to affected areas TID for up to 2 weeks TRIAMCINOLONE ACETONIDE 0.1 % EXTERNAL OINTMENT 7400166 TRIAMCINOLONE ACETONIDE Inactive PREDNISONE 20 MG ORAL TABLET 2 tabs daily for 3 days, 1 tab daily for 3 days, 1/2 tab daily for 2 days PREDNISONE 20 MG ORAL TABLET 861153 PREDNISONE Inactive PREDNISONE 20 MG ORAL TABLET 2 tabs daily for 3 days, 1 tab daily for 3 days, 1/2 tab daily for 2 days PREDNISONE 20 MG ORAL TABLET 347913 PREDNISONE Inactive BACTRIM DS 800-160 MG ORAL TABLET 1 po BID x 7 days BACTRIM DS 800-160 MG ORAL TABLET 032162 SULFAMETHOXAZOLE-TRIMETHOPRIM Inactive ZITHROMAX 250 MG ORAL TABLET 2 po today, then 1 po q days 2-5 ZITHROMAX 250 MG ORAL TABLET 916556 AZITHROMYCIN Inactive Advance Directives Directive Description Start Date DISCUSSED WITH PATIENT -- NO DECISION MADE Immunizations Vaccine Administration Date Value Standard Description Seasonal influenza vaccine, injectable, containing preservative, for > 3 years old (Afluria, FluLaval, Fluzone, Fluvirin, Fluarix, Agriflu(>=18 yo)) Fluzone (>3 yrs.) [AKT014] Influenza, seasonal, injectable influenza immunization (Flu Vax) has been administered 02/22/2012 influenza virus vaccine, unspecified formulation Seasonal influenza vaccine, injectable, containing preservative, for > 3 years old (Afluria, FluLaval, Fluzone, Fluvirin, Fluarix, Agriflu(>=18 yo)) Fluzone (>3 yrs.) [[id number]] Influenza, seasonal, injectable Vital Signs Date Name [...] ... - Chemistry sodium, serum 141 mmol/L 665-875 8402/01/16 carbon dioxide, venous blood 28.3 mmol/L 21.0-32.0 [...] 6.7 % 4.3-6.0 cholesterol, serum 106 mg/dL 356-196 5274/01/16 triglyceride, serum, fasting 173 mg/dL 30-200 HDL [...] A1c - Chemistry cholesterol, serum 135 mg/dL 972-828 9603/05/17 HDL cholesterol, serum 41 mg/dL > OR=46 triglyceride, serum, fasting 206 mg/dL <150 LDL cholesterol, serum 53 MG/DL (CALC) mg/dL <130 cholesterol/HDL ratio, serum 3.3 (calc) < OR=5.0 Lab Report: HGBA1C - Chemistry hemoglobin A1C, blood, as % of total hemoglobin 6.5 % 4.3-6.0 Encounters Code Encounter Date Provider Facility CPT-16937 Level 3 Est. Patient 14:20:36 CDT Tu Landeros MD [facility] CPT-31266 Level 4 Est. Patient 14:28:34 CDT Tu Landeros MD [facility] CPT-80422 Level 3 Est. Patient 13:33:09 CDT Tu Landeros MD [facility] CPT-98887 Level 4 Est. Patient 14:29:21 CDT Tu Landeros MD [facility] CPT-49638 Level 4 Est. Patient 09:08:17 PATIENT CARE ASSOCIATE Tu Landeros MD [facility] CPT-08652 Level 4 Est. Patient 14:40:19 CDT Tu Landeros MD [facility] CPT-15209 Level 4 Est. Patient 14:06:04 PATIENT CARE ASSOCIATE Tu Landeros MD [facility] CPT-43093 Level 3 Est. Patient 14:05:18 PATIENT CARE ASSOCIATE Tu Landeros MD [facility] CPT-18964 Level 3 Est. Patient 10:06:54 PATIENT CARE ASSOCIATE Miranda Suresh APRN [facility] CPT-99873 Level 4 Est. Patient 13:50:18 PATIENT CARE ASSOCIATE Tu Landeros MD [facility] CPT-81733 Level 3 Est. Patient 10:30:04 CDT Tu Landeros MD [facility] CPT-87046 Level 4 Est. Patient 11:03:38 CDT Tu Landeros MD [facility] CPT-75833 Level 3 Est. Patient 10:20:44 CDT Fab Morales DO [facility] CPT-07655 Level 4 Est. Patient 14:38:57 CDT Tu Landeros MD [facility] CPT-07499 Level 4 Est. Patient 14:27:39 PATIENT CARE ASSOCIATE Tu Landeros MD [facility] CPT-60058 Level 4 Est. Patient 09:45:25 CDT Tu Landeros MD [facility] CPT-15903 Level 4 Est. Patient 09:05:20 PATIENT CARE ASSOCIATE Tu Landeros MD [facility] CPT-29052 Level 4 Est. Patient 14:09:06 CDT Tu Landeros MD [facility] CPT-34254 Level 3 Est. Patient 13:36:54 CDT Tu Landeros MD [facility] CPT-96792 Level 3 Est. Patient 08:59:14 CDT Tu Landeros MD [facility] CPT-63461 Level 3 Est. Patient 13:48:35 CDT Fab Morales DO [facility] CPT-07308 Level 4 Est. Patient 10:05:48 CDT Tu Landeros MD [facility] CPT-69065 Level 3 Est. Patient 13:38:42 CDT Marek BANKS [facility] CPT-48015 Level 5 Est. Patient 08:08:39 CDT Jerrica FRANCIS [facility] CPT-19061 Level 4 Est. Patient 14:23:38 CDT Tu Landeros MD [facility] CPT-74861 Level 3 Est. Patient 11:44:04 CDT Tu Landeros MD [facility] CPT-29642 Level 3 Est. Patient 11:03:20 PATIENT CARE ASSOCIATE Tu Landeros MD [facility] CPT-12564 Level 3 Est. Patient 11:03:14 PATIENT CARE ASSOCIATE Tu Landeros MD [facility] CPT-68175 Level 3 Est. Patient 12:42:49 CDT Tu Landeros MD [facility] CPT-10406 Level 3 Est. Patient 11:52:06 CDT Tu Landeros MD [facility] CPT-79042 Level 3 Est. Patient 13:58:11 CDT Tu Landeros MD [facility] CPT-57689 Level 3 Est. Patient 17:50:07 CDT Fab Morales DO [facility] CPT-41807 Level 3 Est. Patient 12:06:29 CDT Elvira Cervantes MD PhD [facility] CPT-51840 Level 3 Est. Patient 15:50:32 CDT Tu Landeros MD [facility] CPT-67738 Level 4 Est. Patient 16:08:29 CDT Tu Landeros MD [facility] CPT-85679 Level 3 Est. Patient 16:04:19 CDT Tu Landeros MD [facility] CPT-02755 Level 3 Est. Patient 11:22:30 PATIENT CARE ASSOCIATE Tu Landeros MD [facility] CPT-47478 Level 4 Est. Patient 16:24:02 PATIENT CARE ASSOCIATE Tu Landeros MD [facility] CPT-72393 Level 3 Est. Patient 17:21:23 PATIENT CARE ASSOCIATE Tu Landeros MD [facility] Procedures Code Procedure Name Date Entry Date Standard Description CPT-84899 Shoulder, right, comp min 2V - XRAY USE ONLY 13:50:22 CDT CPT-G0009 Administration of Pneumococcal Vaccine 15:08:26 CDT CPT-16343 Prevnar 13 Intramuscular Suspension 15:08:26 CDT 10/08 CPT-G0439 Subsequent Annual Wellness Exam 14:29:22 CDT CPT-88649 Venipuncture Draw Fee 13:15:35 CDT CPT-67927 Magnesium - LAB USE ONLY 11:14:20 PATIENT CARE ASSOCIATE CPT-45499 Lipid - LAB USE ONLY 11:14:20 PATIENT CARE ASSOCIATE CPT-51479 HGBA1C - LAB USE ONLY 11:14:20 PATIENT CARE ASSOCIATE CPT-50251 CMP - LAB USE ONLY 11:14:19 PATIENT CARE ASSOCIATE CPT-72835 CBC - LAB USE ONLY 11:14:19 PATIENT CARE ASSOCIATE CPT-31543 Venipuncture Draw Fee 11:14:18 PATIENT CARE ASSOCIATE CPT-24661 First Vx - Ix admin for Medicare patients 16:46:52 CDT CPT-83162 Fluzone Preservative Free Intramuscular Suspension 16:46 :51 CDT CPT-97131 CBC - LAB USE ONLY 17:14:46 CDT CPT-21978 HGBA1C - LAB USE ONLY 17:14:46 CDT CPT-20438 Venipuncture Draw Fee 17:14:46 CDT CPT-G0438 Initial Annual Wellness Exam 14:13:04 CDT CPT-31421 Breathing Tx 10:06:54 PATIENT CARE ASSOCIATE CPT-64616 Postop F/U Visit 10:02:45 CDT CPT-LR Lesion Removal 09:02:56 CDT CPT-JTINJ Asp/Joint Injection 15:51:27 PATIENT CARE ASSOCIATE CPT-OV Office Visit 15:52:02 PATIENT CARE ASSOCIATE CPT-OV Office Visit 15:45:11 CDT CPT-000 Give Zostavax 14:09:06 CDT CPT-13327 Administration single or combination vaccine inc oral 15 :19:04 CDT CPT-03326 Zoster Vaccine (Zostavax) 15:19:04 CDT CPT-00978 Administration single or combination vaccine inc oral 20 :51:03 CDT CPT-30614 Influenza split virus > age 3 20:51:03 CDT CPT-26074 No Charge Offi Visit 14:52:03 CDT CPT-OV Office Visit 14:57:43 CDT CPT-OV Office Visit 15:22:32 CDT CPT-86470 Administration single or combination vaccine inc oral 11 :33:15 CDT CPT-33972 Influenza split virus > age 3 11:33:15 CDT
--- OUTSIDE RECORDS SUMMARY | 2018-04-25 16:02 | XMS REPORT | Clinical Summary ---
Author Author Admin, SACHI Organization [employer] Address Unknown Phone Unavailable Allergies, Adverse Reactions, [...] Carpal tunnel syndrome ARTHRITIS 716.90 Resolved Tu Landeors MD Arthropathy, unspecified, site unspecified KNEE PAIN [...] SYRUP 5ml po q6hr PRN Cough PROMETHAZINE-CODEINE 17929827391 No Longer Active Tu Landeros MD Active AZITHROMYCIN 250 MG ORAL TABLET 2 po qd x 1, then 1 po qd x 4 AZITHROMYCIN 92531715488 No Longer Active Tu Landeros MD Active GUAIFENESIN ER 600 MG ORAL TABLET EXTENDED RELEASE 12 HOUR 1 twice a day as needed for congestion GUAIFENESIN 01456248138 No Longer Active Tu Landeros MD Active PREDNISONE 20 MG ORAL TABLET 2 po qd x 5 days PREDNISONE 39885227386 No Longer Active Tu Landeros MD Active FLUTICASONE PROPIONATE 50 MCG/ACT NASAL SUSPENSION 2 sprays/nostril qd PRN Congestion/Allergies FLUTICASONE PROPIONATE 70570770821 Active Tu Landeros MD Active NASONEX 50 MCG/ACT NASAL SUSPENSION 2 actuations in each nostril q day 07/15 MOMETASONE FUROATE 34270849164 No Longer Active Tu Landeros MD Active MAGNESIUM OXIDE 400 MG ORAL TABLET 1 po BID MAGNESIUM OXIDE 18266138385 Active Tu Landeros MD Active SIMVASTATIN 20 MG ORAL TABLET 0.5 po qHS SIMVASTATIN 99058004168 Active Tu Landeros MD Active DICLOFENAC SODIUM 75 MG ORAL TABLET DELAYED RELEASE 1 po BID PRN Pain DICLOFENAC SODIUM 07093916427 No Longer Active Tu Landeros MD Active GABAPENTIN 100 MG ORAL CAPSULE 1 po TID GABAPENTIN 89022849403 Active Tu Landeros MD Active DICLOFENAC SODIUM 50 MG ORAL TABLET DELAYED RELEASE 1 po BID PRN Pain DICLOFENAC SODIUM 59755412242 No Longer Active Tu Landeros MD Active CYCLOBENZAPRINE HCL 10 MG ORAL TABLET 1 po TID PRN Muscle Spasm CYCLOBENZAPRINE HCL 53467892341 No Longer Active Tu Landeros MD Active INVOKANA 100 MG ORAL TABLET 1 po qd CANAGLIFLOZIN 64962950628 Active Tu Landeros MD Active GLIPIZIDE 5 MG ORAL TABLET 1 po qd GLIPIZIDE 26879205008 No Longer Active Tu Landeros MD Active VENLAFAXINE HCL 75 MG ORAL TABLET 1 po BID VENLAFAXINE HCL 20910123206 Active Tu Landeros MD Active GLIMEPIRIDE 1 MG ORAL TABLET 1 po qd GLIMEPIRIDE 74292042459 No Longer Active Tu Landeros MD Active TRUE METRIX BLOOD GLUCOSE TEST IN VITRO STRIP Test blood sugar BID Dx: E11.9 GLUCOSE BLOOD 33070963927 Active Tu Landeros MD Active TRUE METRIX AIR GLUCOSE METER w/Device KIT Test blood glucose BID Dx: E11.9 BLOOD GLUCOSE MONITORING SUPPL 41109797393 Active Tu Landeros MD Active TRUETEST TEST IN VITRO STRIP test blood sugar twice daily. DX 250.0 GLUCOSE BLOOD 04299828128 No Longer Active Mirna Stanley LPN Active TRUEDRAW LANCING DEVICE test blood sugar twice daily dx: 250.00 LANCET DEVICES 26683235277 No Longer Active Mirna Stanley LPN Active ENALAPRIL MALEATE 20 MG ORAL TABLET 2 po qd ENALAPRIL MALEATE 83719847986 Active Tu Landeros MD Active SUPER B COMPLEX/VITAMIN C ORAL TABLET 1 qd B COMPLEX- C 29870717668 No Longer Active Tu Landeros MD Active ASPIRIN EC 81 MG ORAL TABLET DELAYED RELEASE 1 po qd ASPIRIN 57304470162 Active Tu Landeros MD Active GLUCOSAMINE 500 MG TABS 2 po qd GLUCOSAMINE Active Tu Landeros MD Active FISH OIL 1000 MG ORAL CAPSULE 1 po qd OMEGA-3 FATTY ACIDS 83726769466 Active Tu Landeros MD Active METFORMIN HCL 1000 MG ORAL TABLET 1 po BID METFORMIN HCL 25311398535 Active Tu Landeros MD Active KLOR-CON 10 10 MEQ ORAL TABLET EXTENDED RELEASE 2 po qd POTASSIUM CHLORIDE 04709533846 Active Tu Landeros MD Active FUROSEMIDE 40 MG ORAL TABLET 1 po qd FUROSEMIDE 51287159807 Active Tu Landeros MD Active REQUIP 2 MG ORAL TABLET 1 po qHS PRN Restless legs ROPINIROLE HCL 22226519713 Active Tu Landeros MD Active REQUIP 2 MG ORAL TABLET Take one tablet at bedtime prn ROPINIROLE HCL 43508622209 No Longer Active Tu Landeros MD Active VENTOLIN HFA 108 (90 Base) MCG/ACT INHALATION AEROSOL SOLUTION 1-2 puffs every 4 hours if needed for cough/congestion ALBUTEROL SULFATE 99091763398 No Longer Active Ambika Aden APRN Active ZITHROMAX 250 MG ORAL TABLET 2 po today, then 1 po q days 2-5 AZITHROMYCIN 71172214022 No Longer Active Miranda Farah APRN Active FLONASE 50 MCG/ACT NASAL SUSPENSION 1 spray each nostril twice daily until bottle empty FLUTICASONE PROPIONATE 11936667832 No Longer Active Tu Landeros MD Active COLACE 100 MG ORAL CAPSULE 1 po BID PRN Constipation DOCUSATE SODIUM 21650955064 Active Tu Landeros MD Active TRUERESULT BLOOD GLUCOSE w/Device KIT test blood sugar twice daily dx 250.00 BLOOD GLUCOSE MONITORING SUPPL 03104877476 No Longer Active Tu Landeros MD Active TRUEDRAW LANCING DEVICE Test twice a day dx 250.0 LANCET DEVICES 56676893117 No Longer Active Tu Landeros MD Active PREDNISONE 20 MG ORAL TABLET 2 tablets once daily for 2 days, then 1 tablet once daily for 2 days PREDNISONE 94441538563 No Longer Active Tu Landeros MD Active DICLOFENAC SODIUM 50 MG ORAL TABLET DELAYED RELEASE 1 tablet by mouth three times a day as needed DICLOFENAC SODIUM 53448498813 No Longer Active Fab Morales DO Active EMBRACE BLOOD GLUCOSE TEST IN VITRO STRIP test blood sugar twice daily DX 250.0 GLUCOSE BLOOD 52838339920 No Longer Active Tu Landeros MD Active TRUETEST TEST IN VITRO STRIP test blood sugar three times daily dx: 250.00 GLUCOSE BLOOD 58672605693 No Longer Active Suze VOGEL Active TRUERESULT BLOOD GLUCOSE w/Device KIT use to test blood sugar tid dx: 250.00 BLOOD GLUCOSE MONITORING SUPPL 81596695194 No Longer Active Suze Corey VOGEL Active ALIGN 4 MG ORAL CAPSULE 1 tid PROBIOTIC PRODUCT 59231257638 No Longer Active Shaun Sy MD Active CIPRO 500 MG ORAL TABLET 1 bid x 14 days start 09-28-13 CIPROFLOXACIN HCL 89725847629 No Longer Active Shaun Sy MD Active TRAMADOL HCL 50 MG ORAL TABLET 1-2 tablets every 6 hours as needed for pain TRAMADOL HCL 28132269337 Active Tu Landeros MD Active HYDROCODONE-ACETAMINOPHEN 5-325 MG ORAL TABLET 1 tab by mouth every 6 hours as needed for pain HYDROCODONE-ACETAMINOPHEN 05027533382 No Longer Active Tu Landeros MD Active OMEPRAZOLE 20 MG ORAL CAPSULE DELAYED RELEASE 1 po q a.m. OMEPRAZOLE 03780932247 Active Fab Morales DO Active GABAPENTIN 100 MG ORAL CAPSULE 1 po bid GABAPENTIN 54747002856 No Longer Active Tu Landeros MD Active B-12 100 MCG ORAL TABLET Take one by mouth daily CYANOCOBALAMIN 94434011214 No Longer Active Tu Landeros MD Active BACTRIM DS 800-160 MG ORAL TABLET 1 bid x 14 day start 09-28-13 SULFAMETHOXAZOLE-TRIMETHOPRIM 27927705294 No Longer Active Tu Landeros MD Active CARVEDILOL 12.5 MG ORAL TABLET 1 po BID CARVEDILOL 87057814419 Active Tu Landeros MD Active TRILIPIX 135 MG ORAL CAPSULE DELAYED RELEASE 1 q hs CHOLINE FENOFIBRATE 98240467932 Active Tu Landeros MD Active FENOFIBRATE 145 MG ORAL TABLET 1 po qd FENOFIBRATE 85865107635 No Longer Active JASPREET Perez Active OMEPRAZOLE 20 MG ORAL TABLET DELAYED RELEASE 1 PO 30 MIN BEFORE 1ST MEAL 2010 OMEPRAZOLE 22256001916 No Longer Active JASPREET Perez Active SIMVASTATIN 40 MG ORAL TABLET Take one by mouth daily SIMVASTATIN 99911254760 No Longer Active JASPREET Perez Active VENLAFAXINE HCL 75 MG ORAL TABLET 1 po BID VENLAFAXINE HCL 29405909080 No Longer Active JASPREET Perez Active CIPRO 500 MG ORAL TABLET 1 tablet by mouth twice daily CIPROFLOXACIN HCL 95026969772 No Longer Active Tu Landeros MD Active VENLAFAXINE HCL 37.5 MG ORAL TABLET 1 po BID VENLAFAXINE HCL 03992551087 No Longer Active Suzebianca NUNOA Active LAMISIL 250 MG ORAL TABLET 1 po qd TERBINAFINE HCL 39099325455 No Longer Active Tu Landeros MD Active LORTAB 5-500 MG ORAL TABLET 1/2 to 1 tablet by mouth every 4 hours as needed for pain HYDROCODONE-ACETAMINOPHEN 37858980741 No Longer Active Tu Landeros MD Active HYDROCODONE-ACETAMINOPHEN 5-500 MG ORAL TABLET take one po Q 4-6 hours prn HYDROCODONE-ACETAMINOPHEN 54265810586 No Longer Active Tu Landeros MD Active BACTRIM DS 800-160 MG ORAL TABLET 1 po BID x 7 days SULFAMETHOXAZOLE-TRIMETHOPRIM 12324771927 No Longer Active Tu Landeros MD Active VENLAFAXINE HCL 75 MG ORAL TABLET 1 po BID VENLAFAXINE HCL 59063873671 No Longer Active Elvira Cervantes MD PhD Active TRAMADOL HCL 50 MG ORAL TABLET 1 tablets every 6 hours as needed for pain TRAMADOL HCL 88329186936 No Longer Active Tu Landeros MD Active ACCU-CHEK FASTCLIX LANCETS Use to check bloodsugar three times daily as needed LANCETS 57975515711 No Longer Active Tu Landeros MD Active ACCU-CHEK KEYONA PLUS IN VITRO STRIP Use for testing bloodsugars three times daily as needed GLUCOSE BLOOD 58119800367 No Longer Active Tu Landeros MD Active ACCU-CHEK KEYONA PLUS w/Device KIT Use for testing bloodsugars three times daily as needed BLOOD GLUCOSE MONITORING SUPPL 72127733914 No Longer Active Tu Landeros MD Active SPIRONOLACTONE 25 MG ORAL TABLET 0.5 tablet by mouth daily 09/09 SPIRONOLACTONE 33396204275 No Longer Active Tu Landeros MD Active ALPRAZOLAM 0.5 MG ORAL TABLET 1 tab every 6hrs as needed ALPRAZOLAM 38987282733 No Longer Active Tu Landeros MD Active AUGMENTIN 875-125 MG ORAL TABLET 1 tab by mouth twice daily with food AMOXICILLIN-POT CLAVULANATE 84762324230 No Longer Active Tu Landeros MD Active PREDNISONE 20 MG ORAL TABLET 2 tabs daily for 3 days, 1 tab daily for 3 days, 1/2 tab daily for 2 days PREDNISONE 58377170720 No Longer Active Tu Landeros MD Active XANAX 0.5 MG ORAL TABLET 1 tablet every 6 hrs prn ALPRAZOLAM 05088509185 No Longer Active Tu Landeros MD Active PREDNISONE 20 MG ORAL TABLET 2 tabs daily for 3 days, 1 tab daily for 3 days, 1/2 tab daily for 2 days PREDNISONE 73498581786 No Longer Active Tu Landeros MD Active TRIAMCINOLONE ACETONIDE 0.1 % EXTERNAL OINTMENT Apply to affected areas TID for up to 2 weeks TRIAMCINOLONE ACETONIDE 15026854936 No Longer Active Tu Landeros MD Active LORTAB 5-500 MG ORAL TABLET 1/2 to 1 tablet by mouth every 4 hours as needed for pain HYDROCODONE-ACETAMINOPHEN 32675454213 No Longer Active Tu Landeros MD Active MULTIVITAMINS TABS Take one by mouth daily MULTIPLE VITAMIN 68787446599 No Longer Active Tu Landeros MD Active MELATONIN 5 MG ORAL TABLET Take one by mouth daily MELATONIN 15047913188 No Longer Active Tu Landeros MD Active SOMA 350 MG ORAL TABLET 1 po q 6 hours prn spasm CARISOPRODOL 84137598152 No Longer Active Tu Landeros MD Active MECLIZINE HCL 25 MG ORAL TABLET CHEWABLE 1 four times a day as needed for dizziness MECLIZINE HCL 14672688907 No Longer Active Fab Morales DO Active ANGEL BREEZE 2 TEST IN VITRO DISK test tid prn GLUCOSE BLOOD 20634287446 No Longer Active Negra Scott RN Active REGLAN 10 MG ORAL TABLET 1 po TID PRN Nausea METOCLOPRAMIDE HCL 67760059721 No Longer Active Tu Landeros MD Active METFORMIN HCL 500 MG ORAL TABLET 1 PO BID METFORMIN HCL 85636764192 No Longer Active Tu Landeros MD Active AMBIEN 10 MG ORAL TABLET 1 tab by mouth at bedtime as needed for sleep 06/10 ZOLPIDEM TARTRATE 26353799741 No Longer Active Tu Landeros MD Active FLUOXETINE HCL 40 MG ORAL CAPSULE 1 po q day FLUOXETINE HCL 95932315264 No Longer Active Mayra Terry Active TRILIPIX 135 MG ORAL CAPSULE DELAYED RELEASE 1 po qd CHOLINE FENOFIBRATE 98517101823 No Longer Active Tu Landeros MD Active AMBIEN 10 MG ORAL TABLET 1 tab by mouth at bedtime as needed for sleep 06/10 AMBIEN 10 MG ORAL TABLET 937258 ZOLPIDEM TARTRATE Inactive METFORMIN HCL 500 MG ORAL TABLET 1 PO BID METFORMIN HCL 500 MG ORAL TABLET 610575 METFORMIN HCL Inactive REGLAN 10 MG ORAL TABLET 1 po TID PRN Nausea REGLAN 10 MG ORAL TABLET 215874 METOCLOPRAMIDE HCL Inactive MECLIZINE HCL 25 MG ORAL TABLET CHEWABLE 1 four times a day as needed for dizziness MECLIZINE HCL 25 MG ORAL TABLET CHEWABLE 993223 MECLIZINE HCL Inactive SOMA 350 MG ORAL TABLET 1 po q 6 hours prn spasm SOMA 350 MG ORAL TABLET 714943 CARISOPRODOL Inactive MELATONIN 5 MG ORAL TABLET Take one by mouth daily MELATONIN 5 MG ORAL TABLET 343461 MELATONIN Inactive MULTIVITAMINS TABS Take one by mouth daily MULTIVITAMINS TABS MULTIPLE VITAMIN Inactive LORTAB 5-500 MG ORAL TABLET 1/2 to 1 tablet by mouth every 4 hours as needed for pain LORTAB 5-500 MG ORAL TABLET HYDROCODONE- ACETAMINOPHEN Inactive XANAX 0.5 MG ORAL TABLET 1 tablet every 6 hrs prn XANAX 0.5 MG ORAL TABLET 272633 ALPRAZOLAM Inactive AUGMENTIN 875-125 MG ORAL TABLET 1 tab by mouth twice daily with food AUGMENTIN 875-125 MG ORAL TABLET 072326 AMOXICILLIN-POT CLAVULANATE Inactive ALPRAZOLAM 0.5 MG ORAL TABLET 1 tab every 6hrs as needed ALPRAZOLAM 0.5 MG ORAL TABLET 640250 ALPRAZOLAM Inactive SPIRONOLACTONE 25 MG ORAL TABLET 0.5 tablet by mouth daily 09/09 SPIRONOLACTONE 25 MG ORAL TABLET 087241 SPIRONOLACTONE Inactive ACCU-CHEK KEYONA PLUS w/Device KIT [...] times daily as needed ACCU-CHEK FASTCLIX LANCETS 87753469854 LANCETS Inactive TRAMADOL HCL 50 MG ORAL TABLET 1 tablets every 6 hours as needed for pain TRAMADOL HCL 50 MG ORAL TABLET 594813 TRAMADOL HCL Inactive VENLAFAXINE HCL 75 MG ORAL TABLET 1 po BID VENLAFAXINE HCL 75 MG ORAL TABLET 238620 VENLAFAXINE HCL Inactive HYDROCODONE-ACETAMINOPHEN 5-500 MG ORAL TABLET take one po Q 4-6 hours prn HYDROCODONE-ACETAMINOPHEN 5-500 MG ORAL TABLET 256356 HYDROCODONE-ACETAMINOPHEN Inactive LORTAB 5-500 MG ORAL TABLET 1/2 to 1 tablet by mouth every 4 hours as needed for pain LORTAB 5-500 MG ORAL TABLET HYDROCODONE- ACETAMINOPHEN Inactive LAMISIL 250 MG ORAL TABLET 1 po qd LAMISIL 250 MG ORAL TABLET 958321 TERBINAFINE HCL Inactive VENLAFAXINE HCL 37.5 MG ORAL TABLET 1 po BID VENLAFAXINE HCL 37.5 MG ORAL TABLET 135459 VENLAFAXINE HCL Inactive CIPRO 500 MG ORAL TABLET 1 tablet by mouth twice daily CIPRO 500 MG ORAL TABLET 783637 CIPROFLOXACIN HCL Inactive VENLAFAXINE HCL 75 MG ORAL TABLET 1 po BID VENLAFAXINE HCL 75 MG ORAL TABLET 790981 VENLAFAXINE HCL Inactive SIMVASTATIN 40 MG ORAL TABLET Take one by mouth daily SIMVASTATIN 40 MG ORAL TABLET 632874 SIMVASTATIN Inactive OMEPRAZOLE 20 MG ORAL TABLET DELAYED RELEASE 1 PO 30 MIN BEFORE 1ST MEAL 2010 OMEPRAZOLE 20 MG ORAL TABLET DELAYED RELEASE 164216 OMEPRAZOLE Inactive FENOFIBRATE 145 MG ORAL TABLET 1 po qd FENOFIBRATE 145 MG ORAL TABLET 276118 FENOFIBRATE Inactive BACTRIM DS 800-160 MG ORAL TABLET 1 bid x 14 day start 09-28-13 BACTRIM DS 800-160 MG ORAL TABLET 803230 SULFAMETHOXAZOLE- TRIMETHOPRIM Inactive B-12 100 MCG ORAL TABLET Take one by mouth daily B-12 100 MCG ORAL TABLET CYANOCOBALAMIN Inactive GABAPENTIN 100 MG ORAL CAPSULE 1 po bid GABAPENTIN 100 MG ORAL CAPSULE 408129 GABAPENTIN Inactive HYDROCODONE-ACETAMINOPHEN 5-325 MG ORAL TABLET 1 tab by mouth every 6 hours as needed for pain HYDROCODONE-ACETAMINOPHEN 5-325 MG ORAL TABLET 240628 HYDROCODONE-ACETAMINOPHEN Inactive CIPRO 500 MG ORAL TABLET 1 bid x 14 days start 09-28-13 CIPRO 500 MG ORAL TABLET 886790 CIPROFLOXACIN HCL Inactive ALIGN 4 MG ORAL [...] SODIUM 50 MG ORAL TABLET DELAYED RELEASE 314150 DICLOFENAC SODIUM Inactive PREDNISONE 20 MG ORAL TABLET 2 tablets once daily for 2 days, then 1 tablet once daily for 2 days PREDNISONE 20 MG ORAL TABLET 227554 PREDNISONE Inactive TRUEDRAW LANCING DEVICE Test twice a day dx 250.0 TRUEDRAW LANCING DEVICE LANCET DEVICES Inactive TRUERESULT BLOOD GLUCOSE w/Device KIT test blood sugar twice daily dx 250.00 TRUERESULT BLOOD GLUCOSE w/Device KIT BLOOD GLUCOSE MONITORING SUPPL Inactive FLONASE 50 MCG/ACT NASAL SUSPENSION 1 spray each nostril twice daily until bottle empty FLONASE 50 MCG/ACT NASAL SUSPENSION 0635453 FLUTICASONE PROPIONATE Inactive VENTOLIN HFA 108 (90 Base) MCG/ACT INHALATION AEROSOL SOLUTION 1-2 puffs every 4 hours if needed for cough/congestion VENTOLIN HFA 108 (90 Base) MCG/ACT INHALATION AEROSOL SOLUTION ALBUTEROL SULFATE Inactive REQUIP 2 MG ORAL TABLET Take one tablet at bedtime prn REQUIP 2 MG ORAL TABLET 599447 ROPINIROLE HCL Inactive SUPER B COMPLEX/VITAMIN C ORAL TABLET 1 qd SUPER B COMPLEX/VITAMIN C ORAL TABLET 57760310694 B COMPLEX-C Inactive TRUEDRAW LANCING DEVICE test blood sugar twice daily dx: 250.00 TRUEDRAW LANCING DEVICE LANCET DEVICES Inactive TRUETEST TEST IN VITRO STRIP test blood sugar twice daily. DX 250.0 TRUETEST TEST IN VITRO STRIP GLUCOSE BLOOD Inactive CYCLOBENZAPRINE HCL 10 MG ORAL TABLET 1 po TID PRN Muscle Spasm CYCLOBENZAPRINE HCL 10 MG ORAL TABLET 788024 CYCLOBENZAPRINE HCL Inactive DICLOFENAC SODIUM 50 MG ORAL TABLET DELAYED RELEASE 1 po BID PRN Pain DICLOFENAC SODIUM 50 MG ORAL TABLET DELAYED RELEASE 834194 DICLOFENAC SODIUM Inactive DICLOFENAC SODIUM 75 MG ORAL TABLET DELAYED RELEASE 1 po BID PRN Pain DICLOFENAC SODIUM 75 MG ORAL TABLET DELAYED RELEASE 827002 DICLOFENAC SODIUM Inactive NASONEX 50 MCG/ACT NASAL SUSPENSION 2 actuations in each nostril q day 07/15 NASONEX 50 MCG/ACT NASAL SUSPENSION 6506408 MOMETASONE FUROATE Inactive GUAIFENESIN ER 600 MG ORAL TABLET EXTENDED RELEASE 12 HOUR 1 twice a day as needed for congestion GUAIFENESIN ER 600 MG ORAL TABLET EXTENDED RELEASE 12 HOUR GUAIFENESIN Inactive AZITHROMYCIN 250 MG ORAL TABLET 2 po qd x 1, then 1 po qd x 4 AZITHROMYCIN 250 MG ORAL TABLET 769862 AZITHROMYCIN Inactive PROMETHAZINE-CODEINE 6.25-10 MG/5ML ORAL SYRUP 5ml po q6hr PRN Cough PROMETHAZINE-CODEINE 6.25-10 MG/5ML ORAL SYRUP 593616 PROMETHAZINE-CODEINE Inactive TRIAMCINOLONE ACETONIDE 0.1 % EXTERNAL OINTMENT Apply to affected areas TID for up to 2 weeks TRIAMCINOLONE ACETONIDE 0.1 % EXTERNAL OINTMENT 5532358 TRIAMCINOLONE ACETONIDE Inactive PREDNISONE 20 MG ORAL TABLET 2 tabs daily for 3 days, 1 tab daily for 3 days, 1/2 tab daily for 2 days PREDNISONE 20 MG ORAL TABLET 046197 PREDNISONE Inactive PREDNISONE 20 MG ORAL TABLET 2 tabs daily for 3 days, 1 tab daily for 3 days, 1/2 tab daily for 2 days PREDNISONE 20 MG ORAL TABLET 338619 PREDNISONE Inactive BACTRIM DS 800-160 MG ORAL TABLET 1 po BID x 7 days BACTRIM DS 800-160 MG ORAL TABLET 545691 SULFAMETHOXAZOLE-TRIMETHOPRIM Inactive ZITHROMAX 250 MG ORAL TABLET 2 po today, then 1 po q days 2-5 ZITHROMAX 250 MG ORAL TABLET 312407 AZITHROMYCIN Inactive PREDNISONE 20 MG ORAL TABLET 2 po qd x 5 days PREDNISONE 20 MG ORAL TABLET 625258 PREDNISONE Inactive Advance Directives Directive Description Start Date DISCUSSED WITH PATIENT -- NO DECISION MADE Immunizations Vaccine Administration Date Value Standard Description Seasonal influenza vaccine, injectable, containing preservative, for > 3 years old (Afluria, FluLaval, Fluzone, Fluvirin, Fluarix, Agriflu(>=18 yo)) Fluzone (>3 yrs.) [[id number]] Influenza, seasonal, injectable influenza immunization (Flu Vax) has been administered 02/22/2012 influenza virus vaccine, unspecified formulation Seasonal influenza vaccine, injectable, containing preservative, for > 3 years old (Afluria, FluLaval, Fluzone, Fluvirin, Fluarix, Agriflu(>=18 yo)) Fluzone (>3 yrs.) [[id number]] Influenza, seasonal, injectable Vital Signs Date Name [...] ... - Chemistry sodium, serum 141 mmol/L 322-053 5952/01/16 carbon dioxide, venous blood 28.3 mmol/L 21.0-32.0 [...] 6.7 % 4.3-6.0 cholesterol, serum 106 mg/dL 103-778 4756/01/16 triglyceride, serum, fasting 173 mg/dL 30-200 HDL [...] 4.3-6.0 Encounters Code Encounter Date Provider Facility CPT-12350 Level 3 Est. Patient 10:13:19 COLD ROLL OPERATOR Lesli Kellogg APRN [facility] CPT-59221 Level 4 Est. Patient 13:42:02 COLD ROLL OPERATOR Tu Landeros MD [facility] CPT-62920 Level 3 Est. Patient 14:20:36 CDT Tu Landeros MD [facility] CPT-46128 Level 4 Est. Patient 14:28:34 CDT Tu Landeros MD [facility] CPT-20874 Level 3 Est. Patient 13:33:09 CDT Tu Landeros MD [facility] CPT-25352 Level 4 Est. Patient 14:29:21 CDT Tu Landeros MD [facility] CPT-82724 Level 4 Est. Patient 09:08:17 COLD ROLL OPERATOR Tu Landeros MD [facility] CPT-78723 Level 4 Est. Patient 14:40:19 CDT Tu Landeros MD [facility] CPT-20811 Level 4 Est. Patient 14:06:04 COLD ROLL OPERATOR Tu Landeros MD [facility] CPT-20964 Level 3 Est. Patient 14:05:18 COLD ROLL OPERATOR Tu Landeros MD [facility] CPT-51576 Level 3 Est. Patient 10:06:54 COLD ROLL OPERATOR Miranda Farah APRN [facility] CPT-57674 Level 4 Est. Patient 13:50:18 COLD ROLL OPERATOR Tu Landeros MD [facility] CPT-00580 Level 3 Est. Patient 10:30:04 CDT Tu Landeros MD [facility] CPT-19465 Level 4 Est. Patient 11:03:38 CDT Tu Landeros MD [facility] CPT-30610 Level 3 Est. Patient 10:20:44 CDT Fab Morales DO [facility] CPT-11183 Level 4 Est. Patient 14:38:57 CDT Tu Landeros MD [facility] CPT-07208 Level 4 Est. Patient 14:27:39 COLD ROLL OPERATOR Tu Landeros MD [facility] CPT-15185 Level 4 Est. Patient 09:45:25 CDT Tu Landeros MD [facility] CPT-37305 Level 4 Est. Patient 09:05:20 COLD ROLL OPERATOR Tu Landeros MD [facility] CPT-99793 Level 4 Est. Patient 14:09:06 CDT Tu Landeros MD [facility] CPT-09252 Level 3 Est. Patient 13:36:54 CDT uT Landeros MD [facility] CPT-66802 Level 3 Est. Patient 08:59:14 CDT Tu Landeros MD [facility] CPT-69670 Level 3 Est. Patient 13:48:35 CDT Fab Morales DO [facility] CPT-05193 Level 4 Est. Patient 10:05:48 CDT Tu Landeros MD [facility] CPT-42220 Level 3 Est. Patient 13:38:42 CDT Marek BANKS [facility] CPT-09146 Level 5 Est. Patient 08:08:39 CDT Jerrica FRANCIS [facility] CPT-25512 Level 4 Est. Patient 14:23:38 CDT Tu Landeros MD [facility] CPT-56088 Level 3 Est. Patient 11:44:04 CDT Tu Landeros MD [facility] CPT-51728 Level 3 Est. Patient 11:03:20 COLD ROLL OPERATOR Tu Landeros MD [facility] CPT-75123 Level 3 Est. Patient 11:03:14 COLD ROLL OPERATOR Tu Landeros MD [facility] CPT-03090 Level 3 Est. Patient 12:42:49 CDT Tu Landeros MD [facility] CPT-68334 Level 3 Est. Patient 11:52:06 CDT Tu Landeros MD [facility] CPT-29176 Level 3 Est. Patient 13:58:11 CDT Tu Landeros MD [facility] CPT-56054 Level 3 Est. Patient 17:50:07 CDT Fab Morales DO [facility] CPT-31702 Level 3 Est. Patient 12:06:29 CDT Elvira Cervantes MD [facility] CPT-80208 Level 3 Est. Patient 15:50:32 CDT Tu Landeros MD [facility] CPT-04470 Level 4 Est. Patient 16:08:29 CDT Tu Landeros MD [facility] CPT-22403 Level 3 Est. Patient 16:04:19 CDT Tu Landeros MD [facility] CPT-21819 Level 3 Est. Patient 11:22:30 COLD ROLL OPERATOR Tu Landeros MD [facility] CPT-06663 Level 4 Est. Patient 16:24:02 COLD ROLL OPERATOR Tu Landeros MD [facility] CPT-64522 Level 3 Est. Patient 17:21:23 COLD ROLL OPERATOR Tu Landeros MD [facility] Procedures Code Procedure Name Date Entry Date Standard Description CPT-74132 Shoulder, right, comp min 2V - XRAY USE ONLY 13:50:22 CDT CPT-G0009 Administration of Pneumococcal Vaccine 15:08:26 CDT CPT-13620 Prevnar 13 Intramuscular Suspension 15:08:26 CDT 10/08 CPT-G0439 [facility] Annual Wellness Exam 14:29:22 CDT CPT-07199 Venipuncture Draw Fee 13:15:35 CDT CPT-50997 Magnesium - LAB USE ONLY 11:14:20 COLD ROLL OPERATOR CPT-86789 Lipid - LAB USE ONLY 11:14:20 COLD ROLL OPERATOR CPT-84539 HGBA1C - LAB USE ONLY 11:14:20 COLD ROLL OPERATOR CPT-30924 CMP - LAB USE ONLY 11:14:19 COLD ROLL OPERATOR CPT-72064 CBC - LAB USE ONLY 11:14:19 COLD ROLL OPERATOR CPT-45327 Venipuncture Draw Fee 11:14:18 COLD ROLL OPERATOR CPT-65052 First Vx - Ix admin for Medicare patients 16:46:52 CDT CPT-78203 Fluzone Preservative Free Intramuscular Suspension 16:46 :51 CDT CPT-97049 CBC - LAB USE ONLY 17:14:46 CDT CPT-37678 HGBA1C - LAB USE ONLY 17:14:46 CDT CPT-52413 Venipuncture Draw Fee 17:14:46 CDT CPT-G0438 Initial Annual Wellness Exam 14:13:04 CDT CPT-46480 Breathing Tx 10:06:54 COLD ROLL OPERATOR CPT-17788 Postop F/U Visit 10:02:45 CDT CPT-LR Lesion Removal 09:02:56 CDT CPT-JTINJ Asp/Joint Injection 15:51:27 COLD ROLL OPERATOR CPT-OV Office Visit 15:52: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
--- OUTSIDE RECORDS SUMMARY | 2018-04-25 16:04 | XMS REPORT | Clinical Summary ---
Author Author Admin, SACHI Organization [employer] Address Unknown Phone Unavailable Allergies, Adverse Reactions, [...] po TID PRN Muscle Spasm CYCLOBENZAPRINE HCL 42913881207 Active Tu Landeros MD Active DICLOFENAC SODIUM 50 MG ORAL TBEC 1 po BID PRN Pain DICLOFENAC SODIUM 33983848907 Delores Landeros MD Active INVOKANA 100 MG ORAL TABS 1 po qd CANAGLIFLOZIN 98434946515 Active Tu Landeros MD Active GLIPIZIDE 5 MG ORAL TABS 1 po qd GLIPIZIDE 45664740236 No Longer Active Tu Landeros MD Active VENLAFAXINE HCL 75 MG ORAL TABS 1 po BID VENLAFAXINE HCL 63865767396 Active Tu Landeros MD Active GLIMEPIRIDE 1 MG ORAL TABS 1 po qd GLIMEPIRIDE 99618175839 No Longer Active Tu Landeros MD Active TRUE METRIX BLOOD GLUCOSE TEST INVITR STRP Test blood sugar BID Dx: E11.9 GLUCOSE BLOOD 46879937011 Active Tu Landeros MD Active TRUE METRIX AIR GLUCOSE METER W/DEVICE KIT Test blood glucose BID Dx: E11.9 BLOOD GLUCOSE MONITORING SUPPL 82763794183 Active Tu Landeros MD Active TRUETEST TEST INVITR STRP test blood sugar twice daily. DX 250.0 GLUCOSE BLOOD 64474686433 No Longer Active Mirna Stanley LPN Active TRUEDRAW LANCING DEVICE MISC test blood sugar twice daily dx: 250.00 LANCET DEVICES 69925638632 No Longer Active Mirna Stanley LPN Active ENALAPRIL MALEATE 20 MG TABS 2 po qd ENALAPRIL MALEATE 61038672755 Active Lesli Kellogg APRN Active SUPER B COMPLEX/VITAMIN C TABS 1 qd B COMPLEX-C 53295224150 No Longer Active Tu Landeros MD Active ASPIRIN EC 81 MG ORAL TBEC 1 po qd ASPIRIN 00153637892 Active Tu Landeros MD Active GLUCOSAMINE 500 MG TABS 2 po qd GLUCOSAMINE Active Tu Landeros MD Active SIMVASTATIN 40 MG TABS 0.5 po qHS SIMVASTATIN 04061546428 Active Tu Landeros MD Active FISH OIL 1000 MG CAPS 1 po qd OMEGA-3 FATTY ACIDS 30774275125 Active Tu Landeros MD Active METFORMIN HCL 1000 MG TABS 1 po BID METFORMIN HCL 46291081296 Active Tu Landeros MD Active KLOR-CON 10 10 MEQ CR-TABS 2 po qd POTASSIUM CHLORIDE 59789091893 Active Tu Landeros MD Active FUROSEMIDE 40 MG TAB 1 po qd FUROSEMIDE 79194757788 Active uT Landeros MD Active REQUIP 2 MG ORAL TABS 1 po qHS PRN Restless legs ROPINIROLE HCL 33626946462 Active Tu Landeros MD Active GABAPENTIN 100 MG CAPS 1 po BID GABAPENTIN 09349100193 Active Tu Landeros MD Active REQUIP 2 MG TABS Take one tablet at bedtime prn ROPINIROLE HCL 37565217854 No Longer Active Tu Landeros MD Active VENTOLIN HFA 108 (90 BASE) MCG/ACT AERS 1-2 puffs every 4 hours if needed for cough/congestion ALBUTEROL SULFATE 64382698001 No Longer Active Ambika Aden APRN Active ZITHROMAX 250 MG TAB 2 po today, then 1 po q days 2-5 AZITHROMYCIN 31950950637 No Longer Active Miranda Suresh APRN Active FLONASE 50 MCG/ACT SUSP 1 spray each nostril twice daily until bottle empty FLUTICASONE PROPIONATE 55837128980 No Longer Active Tu Landeros MD Active COLACE 100 MG CAP 1 po BID PRN Constipation DOCUSATE SODIUM 40872715475 Active Tu Landeros MD Active TRUERESULT BLOOD GLUCOSE W/DEVICE KIT test blood sugar twice daily dx 250.00 BLOOD GLUCOSE MONITORING SUPPL 30265909868 No Longer Active Tu Landeros MD Active TRUEDRAW LANCING DEVICE MISC Test twice a day dx 250.0 LANCET DEVICES 31997221040 No Longer Active Tu Landeros MD Active PREDNISONE 20 MG TAB 2 tablets once daily for 2 days, then 1 tablet once daily for 2 days PREDNISONE 27078467810 No Longer Active Tu Landeros MD Active DICLOFENAC SODIUM 50 MG TBEC 1 tablet by mouth three times a day as needed DICLOFENAC SODIUM 68303423347 No Longer Active Fab Morales DO Active EMBRACE BLOOD GLUCOSE TEST STRP test blood sugar twice daily DX 250.0 2014 GLUCOSE BLOOD 05397209431 No Longer Active Tu Landeros MD Active TRUETEST TEST STRP test blood sugar three times daily dx: 250.00 GLUCOSE BLOOD 97084710224 No Longer Active Suze Nicole RMA Active TRUERESULT BLOOD GLUCOSE W/DEVICE KIT use to test blood sugar tid dx: 250.00 BLOOD GLUCOSE MONITORING SUPPL 05545688092 No Longer Active Suze Corey RMA Active ALIGN 4 MG CAPS 1 tid PROBIOTIC PRODUCT 49804576533 No Longer Active Shaun Sy MD Active CIPRO 500 MG TABS 1 bid x 14 days start 09-28-13 CIPROFLOXACIN HCL 57060839810 No Longer Active Shaun Sy MD Active TRAMADOL HCL 50 MG TABS 1-2 tablets every 6 hours as needed for pain TRAMADOL HCL 62419534115 Active Tu Landeros MD Active HYDROCODONE-ACETAMINOPHEN 5-325 MG TABS 1 tab by mouth every 6 hours as needed for pain HYDROCODONE-ACETAMINOPHEN 36456725052 No Longer Active Tu Landeros MD Active OMEPRAZOLE 20 MG CPDR 1 po q a.m. OMEPRAZOLE 25401357515 Active Fab Morales DO Active GABAPENTIN 100 MG CAPS 1 po bid GABAPENTIN 59693030717 No Longer Active Tu Landeros MD Active B-12 100 MCG TABS Take one by mouth daily CYANOCOBALAMIN 24151344980 No Longer Active Tu Landeros MD Active BACTRIM DS 800-160 MG TABS 1 bid x 14 day start 09-28-13 SULFAMETHOXAZOLE-TRIMETHOPRIM 93438259902 No Longer Active Tu Landeros MD Active CARVEDILOL 12.5 MG TABS 1 po BID CARVEDILOL 46431891079 Active Lesli Kellogg APRN Active TRILIPIX 135 MG CPDR 1 q hs CHOLINE FENOFIBRATE 24913125577 Active Tu Landeros MD Active FENOFIBRATE 145 MG TABS 1 po qd FENOFIBRATE 13922762211 No Longer Active JASPREET Perez Active OMEPRAZOLE 20 MG TBEC 1 PO 30 MIN BEFORE 1ST MEAL OMEPRAZOLE 90266869705 No Longer Active JASPREET Perez Active SIMVASTATIN 40 MG TABS Take one by mouth daily SIMVASTATIN 38806641768 No Longer Active JASPREET Perez Active VENLAFAXINE HCL 75 MG TABS 1 po BID VENLAFAXINE HCL 89999012018 No Longer Active JASPREET Perez Active CIPRO 500 MG TAB 1 tablet by mouth twice daily CIPROFLOXACIN HCL 42991362443 No Longer Active Tu Landeros MD Active VENLAFAXINE HCL 37.5 MG TABS 1 po BID VENLAFAXINE HCL 55515598003 No Longer Active Suzebianca Nicole [facility] Active LAMISIL 250 MG TAB 1 po qd TERBINAFINE HCL 10274731031 No Longer Active Tu Landeros MD Active LORTAB 5 5-500 MG TABS 1/2 to 1 tablet by mouth every 4 hours as needed for pain HYDROCODONE-ACETAMINOPHEN 01362392041 No Longer Active Tu Landeros MD Active HYDROCODONE-ACETAMINOPHEN 5-500 MG TABS take one po Q 4-6 hours prn HYDROCODONE-ACETAMINOPHEN 21338942489 No Longer Active Tu Landeros MD Active BACTRIM DS 800-160 MG TABS 1 po BID x 7 days SULFAMETHOXAZOLE-TRIMETHOPRIM 37010872600 No Longer Active Tu Landeros MD Active VENLAFAXINE HCL 75 MG TABS 1 po BID VENLAFAXINE HCL 69825582918 No Longer Active Elvira Cervantes MD PhD Active TRAMADOL HCL 50 MG TABS 1 tablets every 6 hours as needed for pain TRAMADOL HCL 06447445596 No Longer Active Tu Landeros MD Active ACCU-CHEK FASTCLIX LANCETS MISC Use to check bloodsugar three times daily as needed LANCETS 76682808790 No Longer Active Tu Landeros MD Active ACCU-CHEK KEYONA PLUS STRP Use for testing bloodsugars three times daily as needed GLUCOSE BLOOD 64097675225 No Longer Active Tu Landeros MD Active ACCU-CHEK KEYONA PLUS W/DEVICE KIT Use for testing bloodsugars three times daily as needed BLOOD GLUCOSE MONITORING SUPPL 69491765795 No Longer Active Tu Landeros MD Active SPIRONOLACTONE 25 MG TAB 0.5 tablet by mouth daily SPIRONOLACTONE 40470993670 No Longer Active Tu Landeros MD Active ALPRAZOLAM 0.5 MG TABS 1 tab every 6hrs as needed ALPRAZOLAM 95687490385 No Longer Active Tu Landeros MD Active AUGMENTIN 875-125 MG TAB 1 tab by mouth twice daily with food AMOXICILLIN-POT CLAVULANATE 39121940429 No Longer Active Tu Landeros MD Active PREDNISONE 20 MG TAB 2 tabs daily for 3 days, 1 tab daily for 3 days, 1/2 tab daily for 2 days PREDNISONE 90210821587 No Longer Active Tu Landeros MD Active XANAX 0.5 MG TABS 1 tablet every 6 hrs prn ALPRAZOLAM 30736463560 No Longer Active Tu Landeros MD Active PREDNISONE 20 MG TAB 2 tabs daily for 3 days, 1 tab daily for 3 days, 1/2 tab daily for 2 days PREDNISONE 40090816364 No Longer Active Tu Landeros MD Active TRIAMCINOLONE ACETONIDE 0.1 % OINT Apply to affected areas TID for up to 2 weeks TRIAMCINOLONE ACETONIDE 14954924344 No Longer Active Tu Landeros MD Active LORTAB 5 5-500 MG TABS 1/2 to 1 tablet by mouth every 4 hours as needed for pain HYDROCODONE-ACETAMINOPHEN 28875923501 No Longer Active Tu Landeros MD Active MULTIVITAMINS TABS Take one by mouth daily MULTIPLE VITAMIN 14264684236 No Longer Active Tu Landeros MD Active MELATONIN 5 MG TABS Take one by mouth daily MELATONIN 27261187673 No Longer Active Tu Landeros MD Active SOMA 350 MG TAB 1 po q 6 hours prn spasm CARISOPRODOL 55009648101 No Longer Active Tu Landeros MD Active MECLIZINE HCL 25 MG CHEW TAB 1 four times a day as needed for dizziness 08/05 MECLIZINE HCL 47176347056 No Longer Active Fab Morales DO Active ANGEL BREEZE 2 TEST DISK test tid prn GLUCOSE BLOOD 83016201223 No Longer Active Negra Scott RN Active REGLAN 10 MG TAB 1 po TID PRN Nausea METOCLOPRAMIDE HCL 78110499994 No Longer Active Tu Landeros MD Active METFORMIN HCL 500 MG TABS 1 PO BID METFORMIN HCL 58802320075 No Longer Active Tu Landeros MD Active AMBIEN 10 MG TAB 1 tab by mouth at bedtime as needed for sleep ZOLPIDEM TARTRATE 08647984656 No Longer Active Tu Landeros MD Active FLUOXETINE HCL 40 MG CAPS 1 po q day FLUOXETINE HCL 83924308727 No Longer Active Mayra Columbus Active TRILIPIX 135 MG CPDR 1 po qd CHOLINE FENOFIBRATE 68088636768 No Longer Active Tu Landeros MD Active AMBIEN 10 MG TAB 1 tab by mouth at bedtime as needed for sleep AMBIEN 10 MG TAB 312151 ZOLPIDEM TARTRATE Inactive METFORMIN HCL 500 MG TABS 1 PO BID METFORMIN HCL 500 MG TABS 083051 METFORMIN HCL Inactive REGLAN 10 MG TAB 1 po TID PRN Nausea REGLAN 10 MG TAB 334377 METOCLOPRAMIDE HCL Inactive MECLIZINE HCL 25 MG CHEW TAB 1 four times a day as needed for dizziness 08/05 MECLIZINE HCL 25 MG CHEW TAB 933902 MECLIZINE HCL Inactive SOMA 350 MG TAB 1 po q 6 hours prn spasm SOMA 350 MG TAB 500349 CARISOPRODOL Inactive MELATONIN 5 MG TABS Take one by mouth daily MELATONIN 5 MG TABS 406047 MELATONIN Inactive MULTIVITAMINS TABS Take one by mouth daily MULTIVITAMINS TABS MULTIPLE VITAMIN Inactive LORTAB 5 5-500 MG TABS 1/2 to 1 tablet by mouth every 4 hours as needed for pain LORTAB 5 5-500 MG TABS HYDROCODONE- ACETAMINOPHEN Inactive XANAX 0.5 MG TABS 1 tablet every 6 hrs prn XANAX 0.5 MG TABS 317774 ALPRAZOLAM Inactive AUGMENTIN 875-125 MG TAB 1 tab by mouth twice daily with food AUGMENTIN 875-125 MG TAB 684391 AMOXICILLIN-POT CLAVULANATE Inactive ALPRAZOLAM 0.5 MG TABS 1 tab every 6hrs as needed ALPRAZOLAM 0.5 MG TABS 294436 ALPRAZOLAM Inactive SPIRONOLACTONE 25 MG TAB 0.5 tablet by mouth daily SPIRONOLACTONE 25 MG TAB 640060 SPIRONOLACTONE Inactive ACCU-CHEK KEYONA PLUS W/DEVICE KIT Use for testing bloodsugars three times daily as needed ACCU-CHEK KEYONA PLUS W/DEVICE KIT BLOOD GLUCOSE MONITORING SUPPL Inactive ACCU-CHEK KEYONA PLUS STRP Use for testing bloodsugars three times daily as needed ACCU-CHEK KEYONA PLUS STRP GLUCOSE BLOOD Inactive ACCU-CHEK FASTCLIX LANCETS MISC Use to check bloodsugar three times daily as needed ACCU-CHEK FASTCLIX LANCETS MISC 54365258945 [facility] TRAMADOL HCL 50 MG TABS 1 tablets every 6 hours as needed for pain TRAMADOL HCL 50 MG TABS 300601 TRAMADOL HCL Inactive VENLAFAXINE HCL 75 MG TABS 1 po BID VENLAFAXINE HCL 75 MG TABS 978966 VENLAFAXINE HCL Inactive HYDROCODONE-ACETAMINOPHEN 5-500 MG TABS take one po Q 4-6 hours prn HYDROCODONE-ACETAMINOPHEN 5-500 MG TABS HYDROCODONE- ACETAMINOPHEN Inactive LORTAB 5 5-500 MG TABS 1/2 to 1 tablet by mouth every 4 hours as needed for pain LORTAB 5 5-500 MG TABS HYDROCODONE- ACETAMINOPHEN Inactive LAMISIL 250 MG TAB 1 po qd LAMISIL 250 MG TAB 785130 TERBINAFINE HCL Inactive VENLAFAXINE HCL 37.5 MG TABS 1 po BID VENLAFAXINE HCL 37.5 MG TABS 327580 VENLAFAXINE HCL Inactive CIPRO 500 MG TAB 1 tablet by mouth twice daily CIPRO 500 MG TAB 268741 CIPROFLOXACIN HCL Inactive VENLAFAXINE HCL 75 MG TABS 1 po BID VENLAFAXINE HCL 75 MG TABS 836108 VENLAFAXINE HCL Inactive SIMVASTATIN 40 MG TABS Take one by mouth daily SIMVASTATIN 40 MG TABS 656660 SIMVASTATIN Inactive OMEPRAZOLE 20 MG TBEC 1 PO 30 MIN BEFORE 1ST MEAL OMEPRAZOLE 20 MG TBEC 658203 OMEPRAZOLE Inactive FENOFIBRATE 145 MG TABS 1 po qd FENOFIBRATE 145 MG TABS 737008 FENOFIBRATE Inactive BACTRIM DS 800-160 MG TABS 1 bid x 14 day start 09-28-13 BACTRIM DS 800-160 MG TABS 009873 SULFAMETHOXAZOLE-TRIMETHOPRIM Inactive B-12 100 MCG TABS Take one by mouth daily B-12 100 MCG TABS CYANOCOBALAMIN Inactive GABAPENTIN 100 MG CAPS 1 po bid GABAPENTIN 100 MG CAPS 247523 GABAPENTIN Inactive HYDROCODONE-ACETAMINOPHEN 5-325 MG TABS 1 tab by mouth every 6 hours as needed for pain HYDROCODONE-ACETAMINOPHEN 5-325 MG TABS 227078 HYDROCODONE-ACETAMINOPHEN Inactive CIPRO 500 MG TABS 1 bid x 14 days start 09-28-13 CIPRO 500 MG TABS 235472 CIPROFLOXACIN HCL Inactive ALIGN 4 MG CAPS [...] as needed DICLOFENAC SODIUM 50 MG TBEC 069701 DICLOFENAC SODIUM Inactive PREDNISONE 20 MG TAB 2 tablets once daily for 2 days, then 1 tablet once daily for 2 days PREDNISONE 20 MG TAB 740627 PREDNISONE Inactive TRUEDRAW LANCING DEVICE MISC Test twice a day dx 250.0 TRUEDRAW LANCING DEVICE MISC LANCET DEVICES Inactive TRUERESULT BLOOD GLUCOSE W/DEVICE KIT test blood sugar twice daily dx 250.00 TRUERESULT BLOOD GLUCOSE W/DEVICE KIT BLOOD GLUCOSE MONITORING SUPPL Inactive FLONASE 50 MCG/ACT SUSP 1 spray each nostril twice daily until bottle empty FLONASE 50 MCG/ACT SUSP 3369091 FLUTICASONE PROPIONATE Inactive VENTOLIN HFA 108 (90 BASE) MCG/ACT AERS 1-2 puffs every 4 hours if needed for cough/congestion VENTOLIN HFA 108 (90 BASE) MCG/ACT AERS ALBUTEROL SULFATE Inactive REQUIP 2 MG TABS Take one tablet at bedtime prn REQUIP 2 MG TABS 322098 ROPINIROLE HCL Inactive SUPER B COMPLEX/VITAMIN C TABS 1 qd SUPER B COMPLEX/ VITAMIN C TABS 99763558643 B COMPLEX-C Inactive TRUEDRAW LANCING DEVICE MISC test blood sugar twice daily dx: 250.00 TRUEDRAW LANCING DEVICE MISC LANCET DEVICES Inactive TRUETEST TEST INVITR STRP test blood sugar twice daily. DX 250.0 TRUETEST TEST INVITR STRP GLUCOSE BLOOD Inactive TRIAMCINOLONE ACETONIDE 0.1 % OINT Apply to affected areas TID for up to 2 weeks TRIAMCINOLONE ACETONIDE 0.1 % OINT 4809035 TRIAMCINOLONE ACETONIDE Inactive PREDNISONE 20 MG TAB 2 tabs daily for 3 days, 1 tab daily for 3 days, 1/2 tab daily for 2 days PREDNISONE 20 MG TAB 007239 PREDNISONE Inactive PREDNISONE 20 MG TAB 2 tabs daily for 3 days, 1 tab daily for 3 days, 1/2 tab daily for 2 days PREDNISONE 20 MG TAB 788315 PREDNISONE Inactive BACTRIM DS 800-160 MG TABS 1 po BID x 7 days BACTRIM DS 800-160 MG TABS 066584 SULFAMETHOXAZOLE-TRIMETHOPRIM Inactive ZITHROMAX 250 MG TAB 2 po today, then 1 po q days 2-5 ZITHROMAX 250 MG TAB 4136248 AZITHROMYCIN Inactive Advance Directives Directive Description Start Date DISCUSSED WITH PATIENT -- NO DECISION MADE Immunizations Vaccine Administration Date Value Standard Description Seasonal influenza vaccine, injectable, containing preservative, for > 3 years old (Afluria, FluLaval, Fluzone, Fluvirin, Fluarix, Agriflu(>=18 yo)) Fluzone (>3 yrs.) [[id number]] Influenza, seasonal, injectable influenza immunization (Flu Vax) has been administered 02/22/2012 influenza virus vaccine, unspecified formulation Seasonal influenza vaccine, injectable, containing preservative, for > 3 years old (Afluria, FluLaval, Fluzone, Fluvirin, Fluarix, Agriflu(>=18 yo)) Fluzone (>3 yrs.) [[id number]] Influenza, seasonal, injectable Vital Signs Date Name [...] Magnesium - Chemistry sodium, serum 143 mmol/L 571-261 3648/01/10 carbon dioxide, venous blood 28.0 mmol/L 21.0-32.0 potassium, serum 4.5 mmol/L 3.5-5.2 chloride, serum 104 mmol/L 98-107 blood glucose 158 mg/dL 65-110 urea nitrogen, blood 23 mg/dL 7-18 creatinine, serum 1.06 mg/dL 0.55-1.30 alanine aminotransferase (SGPT), serum 42 U/L 12-78 aspartate aminotransferase (SGOT), serum 32 U/L 15-37 calcium, serum 9.3 mg/dL 8.5-10.1 bilirubin, serum, total 0.20 mg/dL 0.00-1.00 cholesterol, serum 177 mg/dL 517-226 1370/01/10 triglyceride, serum, fasting 320 mg/dL 30-200 HDL cholesterol, serum 46 mg/dL 32-96 LDL cholesterol, serum 67 mg/dL 0-130 Lab Report: COMPREHENSIVE METABOLIC PANEL, LIPID PANEL, HEMOGLOBIN A1c - Chemistry cholesterol, serum 135 mg/dL 163-365 6907/05/17 HDL cholesterol, serum 41 mg/dL > OR=46 [...] <30 Encounters Code Encounter Date Provider Facility CPT-50382 Level 3 Est. Patient 13:33:09 CDT Tu Landeros MD [facility] CPT-11050 Level 4 Est. Patient 14:29:21 CDT Tu Landeros MD [facility] CPT-36872 Level 4 Est. Patient 09:08:17 SERVICE MEMBER Tu Landeros MD [facility] CPT-49674 Level 4 Est. Patient 14:40:19 CDT Tu Landeros MD [facility] CPT-47816 Level 4 Est. Patient 14:06:04 SERVICE MEMBER Tu Landeros MD [facility] CPT-84933 Level 3 Est. Patient 14:05:18 SERVICE MEMBER Tu Landeros MD [facility] CPT-55610 Level 3 Est. Patient 10:06:54 SERVICE MEMBER Miranda Suresh APRN [facility] CPT-87657 Level 4 Est. Patient 13:50:18 SERVICE MEMBER Tu Landeros MD [facility] CPT-63325 Level 3 Est. Patient 10:30:04 CDT Tu Landeros MD [facility] CPT-25536 Level 4 Est. Patient 11:03:38 CDT Tu Landeros MD [facility] CPT-37489 Level 3 Est. Patient 10:20:44 CDT Fab Morales DO [facility] CPT-85724 Level 4 Est. Patient 14:38:57 CDT Tu Landeros MD [facility] CPT-70881 Level 4 Est. Patient 14:27:39 SERVICE MEMBER Tu Landerso MD [facility] CPT-44738 Level 4 Est. Patient 09:45:25 CDT Tu Landeros MD [facility] CPT-96571 Level 4 Est. Patient 09:05:20 SERVICE MEMBER Tu Landeros MD [facility] CPT-95440 Level 4 Est. Patient 14:09:06 CDT Tu Landeros MD [facility] CPT-97929 Level 3 Est. Patient 13:36:54 CDT Tu Landeros MD [facility] CPT-84127 Level 3 Est. Patient 08:59:14 CDT Tu Landeros MD [facility] CPT-04188 Level 3 Est. Patient 13:48:35 CDT Fab Morales DO [facility] CPT-72628 Level 4 Est. Patient 10:05:48 CDT Tu Landeros MD [facility] CPT-37517 Level 3 Est. Patient 13:38:42 CDT Marek BANKS [facility] CPT-39588 Level 5 Est. Patient 08:08:39 CDT Jerrica FRANCIS [facility] CPT-60928 Level 4 Est. Patient 14:23:38 CDT Tu Landeros MD [facility] CPT-65743 Level 3 Est. Patient 11:44:04 CDT Tu Landeros MD [facility] CPT-37544 Level 3 Est. Patient 11:03:20 SERVICE MEMBER Tu Landeros MD [facility] CPT-72025 Level 3 Est. Patient 11:03:14 SERVICE MEMBER Tu Landeros MD [facility] CPT-66931 Level 3 Est. Patient 12:42:49 CDT Tu Landeros MD [facility] CPT-11976 Level 3 Est. Patient 11:52:06 CDT Tu Landeros MD [facility] CPT-80305 Level 3 Est. Patient 13:58:11 CDT Tu Landeros MD [facility] CPT-70731 Level 3 Est. Patient 17:50:07 CDT Fab Morales DO [facility] CPT-37677 Level 3 Est. Patient 12:06:29 CDT Elvira Cervantes MD PhD [facility] CPT-37366 Level 3 Est. Patient 15:50:32 CDT Tu Landeros MD [facility] CPT-46572 Level 4 Est. Patient 16:08:29 CDT Tu Landeros MD [facility] CPT-87188 Level 3 Est. Patient 16:04:19 CDT Tu Landeros MD [facility] CPT-93993 Level 3 Est. Patient 11:22:30 SERVICE MEMBER Tu Landeros MD [facility] CPT-93875 Level 4 Est. Patient 16:24:02 SERVICE MEMBER Tu Landeros MD [facility] CPT-50382 Level 3 Est. Patient 17:21:23 SERVICE MEMBER Tu Landeros MD [facility] Procedures Code Procedure Name Date Entry Date Standard Description CPT-13565 Shoulder, right, comp min 2V - XRAY USE ONLY 13:50:22 CDT CPT-G0009 Administration of Pneumococcal Vaccine 15:08:26 CDT CPT-65359 Prevnar 13 Intramuscular Suspension 15:08:26 CDT 10/08 CPT-G0439 Subsequent Annual Wellness Exam 14:29:22 CDT CPT-04521 Venipuncture Draw Fee 13:15:35 CDT CPT-04114 Magnesium - LAB USE ONLY 11:14:20 SERVICE MEMBER CPT-05002 Lipid - LAB USE ONLY 11:14:20 SERVICE MEMBER CPT-45270 HGBA1C - LAB USE ONLY 11:14:20 SERVICE MEMBER CPT-57516 CMP - LAB USE ONLY 11:14:19 SERVICE MEMBER CPT-12510 CBC - LAB USE ONLY 11:14:19 SERVICE MEMBER CPT-56492 Venipuncture Draw Fee 11:14:18 SERVICE MEMBER CPT-92285 First Vx - Ix admin for Medicare patients 16:46:52 CDT CPT-93624 Fluzone Preservative Free Intramuscular Suspension 16:46 :51 CDT CPT-36206 CBC - LAB USE ONLY 17:14:46 CDT CPT-11855 HGBA1C - LAB USE ONLY 17:14:46 CDT CPT-85087 Venipuncture Draw Fee 17:14:46 CDT CPT-G0438 Initial Annual Wellness Exam 14:13:04 CDT CPT-15660 Breathing Tx 10:06:54 SERVICE MEMBER CPT-22563 Postop F/U Visit 10:02:45 CDT CPT-LR Lesion Removal 09:02:56 CDT CPT-JTINJ Asp/Joint Injection 15:51:27 SERVICE MEMBER CPT-OV Office Visit 15:52:02 SERVICE MEMBER CPT-OV Office Visit 15:45:11 CDT CPT-000 Give Zostavax 14:09:06 CDT CPT-46456 Administration single or combination vaccine inc oral 15 :19:04 CDT CPT-29406 Zoster Vaccine (Zostavax) 15:19:04 CDT CPT-72841 Administration single or combination vaccine inc oral 20 :51:03 CDT CPT-15473 Influenza split virus > age 3 20:51:03 CDT CPT-28581 No Charge Offi Visit 14:52:03 CDT CPT-OV Office Visit 14:57:43 CDT CPT-OV Office Visit 15:22:32 CDT CPT-33855 Administration single or combination vaccine inc oral 11 :33:15 CDT CPT-60903 Influenza split virus > age 3 11:33:15 CDT
--- OUTSIDE RECORDS SUMMARY | 2018-04-25 16:06 | XMS REPORT | Clinical Summary ---
Author Author Admin, SACHI Organization [facility] Address Unknown Phone Unavailable Allergies, Adverse Reactions, [...] ORAL TABLET 1 po BID MAGNESIUM OXIDE 21147922421 Active Tu Landeros MD Active SIMVASTATIN 20 MG ORAL TABLET 0.5 po qHS SIMVASTATIN 09137918897 Active Tu Landeros MD Active DICLOFENAC SODIUM 75 MG ORAL TABLET DELAYED RELEASE 1 po BID PRN Pain DICLOFENAC SODIUM 68374815790 No Longer Active Tu Landeros MD Active GABAPENTIN 100 MG ORAL CAPSULE 1 po TID GABAPENTIN 44356140513 Active Tu Landeros MD Active DICLOFENAC SODIUM 50 MG ORAL TABLET DELAYED RELEASE 1 po BID PRN Pain DICLOFENAC SODIUM 52735363866 No Longer Active Tu Landeros MD Active CYCLOBENZAPRINE HCL 10 MG ORAL TABLET 1 po TID PRN Muscle Spasm CYCLOBENZAPRINE HCL 63707706163 No Longer Active Tu Landeros MD Active INVOKANA 100 MG ORAL TABLET 1 po qd CANAGLIFLOZIN 55876813598 Active Tu Landeros MD Active GLIPIZIDE 5 MG ORAL TABLET 1 po qd GLIPIZIDE 12958287708 No Longer Active Tu Landeros MD Active VENLAFAXINE HCL 75 MG ORAL TABLET 1 po BID VENLAFAXINE HCL 46071220128 Active Tu Landeros MD Active GLIMEPIRIDE 1 MG ORAL TABLET 1 po qd GLIMEPIRIDE 40038499289 No Longer Active Tu Landeros MD Active TRUE METRIX BLOOD GLUCOSE TEST IN VITRO STRIP Test blood sugar BID Dx: E11.9 GLUCOSE BLOOD 66894789907 Active Tu Landeros MD Active TRUE METRIX AIR GLUCOSE METER w/Device KIT Test blood glucose BID Dx: E11.9 BLOOD GLUCOSE MONITORING SUPPL 85601588160 Active Tu Landeros MD Active TRUETEST TEST IN VITRO STRIP test blood sugar twice daily. DX 250.0 GLUCOSE BLOOD 79560011749 No Longer Active Mirna Stanley LPN Active TRUEDRAW LANCING DEVICE test blood sugar twice daily dx: 250.00 LANCET DEVICES 84639723016 No Longer Active Mirna Stanley LPN Active ENALAPRIL MALEATE 20 MG ORAL TABLET 2 po qd ENALAPRIL MALEATE 42167111924 Active Tu Landeros MD Active SUPER B COMPLEX/VITAMIN C ORAL TABLET 1 qd B COMPLEX- C 12610344607 No Longer Active Tu Landeros MD Active ASPIRIN EC 81 MG ORAL TABLET DELAYED RELEASE 1 po qd ASPIRIN 15394732143 Active Tu Landeros MD Active GLUCOSAMINE 500 MG TABS 2 po qd GLUCOSAMINE Active Tu Landeros MD Active FISH OIL 1000 MG ORAL CAPSULE 1 po qd OMEGA-3 FATTY ACIDS 89160186223 Active Tu Landeros MD Active METFORMIN HCL 1000 MG ORAL TABLET 1 po BID METFORMIN HCL 17303732275 Active Tu Landeros MD Active KLOR-CON 10 10 MEQ ORAL TABLET EXTENDED RELEASE 2 po qd POTASSIUM CHLORIDE 98014732240 Active Tu Landeros MD Active FUROSEMIDE 40 MG ORAL TABLET 1 po qd FUROSEMIDE 27277237983 Active Tu Landeros MD Active REQUIP 2 MG ORAL TABLET 1 po qHS PRN Restless legs ROPINIROLE HCL 88322913271 Active Tu Landeros MD Active REQUIP 2 MG ORAL TABLET Take one tablet at bedtime prn ROPINIROLE HCL 68816465867 No Longer Active Tu Landeros MD Active VENTOLIN HFA 108 (90 Base) MCG/ACT INHALATION AEROSOL SOLUTION 1-2 puffs every 4 hours if needed for cough/congestion ALBUTEROL SULFATE 32184648438 No Longer Active Ambika Aden APRN Active ZITHROMAX 250 MG ORAL TABLET 2 po today, then 1 po q days 2-5 AZITHROMYCIN 12133353896 No Longer Active Miranda Suresh APRN Active FLONASE 50 MCG/ACT NASAL SUSPENSION 1 spray each nostril twice daily until bottle empty FLUTICASONE PROPIONATE 22919519753 No Longer Active Tu Landeros MD Active COLACE 100 MG ORAL CAPSULE 1 po BID PRN Constipation DOCUSATE SODIUM 33177681451 Active Tu Landeros MD Active TRUERESULT BLOOD GLUCOSE w/Device KIT test blood sugar twice daily dx 250.00 BLOOD GLUCOSE MONITORING SUPPL 23498199161 No Longer Active Tu Landeros MD Active TRUEDRAW LANCING DEVICE Test twice a day dx 250.0 LANCET DEVICES 18225698915 No Longer Active Tu Landeros MD Active PREDNISONE 20 MG ORAL TABLET 2 tablets once daily for 2 days, then 1 tablet once daily for 2 days PREDNISONE 63207053552 No Longer Active Tu Landeros MD Active DICLOFENAC SODIUM 50 MG ORAL TABLET DELAYED RELEASE 1 tablet by mouth three times a day as needed DICLOFENAC SODIUM 43408152236 No Longer Active Fab Morales DO Active EMBRACE BLOOD GLUCOSE TEST IN VITRO STRIP test blood sugar twice daily DX 250.0 GLUCOSE BLOOD 29339534515 No Longer Active Tu Landeros MD Active TRUETEST TEST IN VITRO STRIP test blood sugar three times daily dx: 250.00 GLUCOSE BLOOD 60075060894 No Longer Active Suze VOGEL Active TRUERESULT BLOOD GLUCOSE w/Device KIT use to test blood sugar tid dx: 250.00 BLOOD GLUCOSE MONITORING SUPPL 00641287708 No Longer Active Suze Corey VOGEL Active ALIGN 4 MG ORAL CAPSULE 1 tid PROBIOTIC PRODUCT 00723426983 No Longer Active Shaun Sy MD Active CIPRO 500 MG ORAL TABLET 1 bid x 14 days start 09-28-13 CIPROFLOXACIN HCL 19527398234 No Longer Active Shaun Sy MD Active TRAMADOL HCL 50 MG ORAL TABLET 1-2 tablets every 6 hours as needed for pain TRAMADOL HCL 11328904339 Active Tu Landeros MD Active HYDROCODONE-ACETAMINOPHEN 5-325 MG ORAL TABLET 1 tab by mouth every 6 hours as needed for pain HYDROCODONE-ACETAMINOPHEN 61538252910 No Longer Active Tu Landeros MD Active OMEPRAZOLE 20 MG ORAL CAPSULE DELAYED RELEASE 1 po q a.m. OMEPRAZOLE 66047898274 Active Fab Morales DO Active GABAPENTIN 100 MG ORAL CAPSULE 1 po bid GABAPENTIN 60190461099 No Longer Active Tu Landeros MD Active B-12 100 MCG ORAL TABLET Take one by mouth daily CYANOCOBALAMIN 50870751010 No Longer Active Tu Landeros MD Active BACTRIM DS 800-160 MG ORAL TABLET 1 bid x 14 day start 09-28-13 SULFAMETHOXAZOLE-TRIMETHOPRIM 49250337637 No Longer Active Tu Landeros MD Active CARVEDILOL 12.5 MG ORAL TABLET 1 po BID CARVEDILOL 10284896721 Active Tu Landeros MD Active TRILIPIX 135 MG ORAL CAPSULE DELAYED RELEASE 1 q hs CHOLINE FENOFIBRATE 11043064879 Active Tu Landeros MD Active FENOFIBRATE 145 MG ORAL TABLET 1 po qd FENOFIBRATE 39780928003 No Longer Active JASPREET Perez Active OMEPRAZOLE 20 MG ORAL TABLET DELAYED RELEASE 1 PO 30 MIN BEFORE 1ST MEAL 2010 OMEPRAZOLE 66268448230 No Longer Active JASPREET Perez Active SIMVASTATIN 40 MG ORAL TABLET Take one by mouth daily SIMVASTATIN 96518740301 No Longer Active JASPREET Perez Active VENLAFAXINE HCL 75 MG ORAL TABLET 1 po BID VENLAFAXINE HCL 01343422481 No Longer Active JASPREET Perez Active CIPRO 500 MG ORAL TABLET 1 tablet by mouth twice daily CIPROFLOXACIN HCL 33543026533 No Longer Active Tu Landeros MD Active VENLAFAXINE HCL 37.5 MG ORAL TABLET 1 po BID VENLAFAXINE HCL 89166404074 No Longer Active Suze VOGEL Active LAMISIL 250 MG ORAL TABLET 1 po qd TERBINAFINE HCL 60758185705 No Longer Active Tu Landeros MD Active LORTAB 5-500 MG ORAL TABLET 1/2 to 1 tablet by mouth every 4 hours as needed for pain HYDROCODONE-ACETAMINOPHEN 53228434677 No Longer Active Tu Landeros MD Active HYDROCODONE-ACETAMINOPHEN 5-500 MG ORAL TABLET take one po Q 4-6 hours prn HYDROCODONE-ACETAMINOPHEN 46277599742 No Longer Active Tu Landeros MD Active BACTRIM DS 800-160 MG ORAL TABLET 1 po BID x 7 days SULFAMETHOXAZOLE-TRIMETHOPRIM 78839609311 No Longer Active Tu Landeros MD Active VENLAFAXINE HCL 75 MG ORAL TABLET 1 po BID VENLAFAXINE HCL 22934869911 No Longer Active Elvira Cervantes MD PhD Active TRAMADOL HCL 50 MG ORAL TABLET 1 tablets every 6 hours as needed for pain TRAMADOL HCL 45636792511 No Longer Active Tu Landeros MD Active ACCU-CHEK FASTCLIX LANCETS Use to check bloodsugar three times daily as needed LANCETS 97767113532 No Longer Active Tu Landeros MD Active ACCU-CHEK KEYONA PLUS IN VITRO STRIP Use for testing bloodsugars three times daily as needed GLUCOSE BLOOD 90976821371 No Longer Active Tu Landeros MD Active ACCU-CHEK KEYONA PLUS w/Device KIT Use for testing bloodsugars three times daily as needed BLOOD GLUCOSE MONITORING SUPPL 55514106233 No Longer Active Tu Landeros MD Active SPIRONOLACTONE 25 MG ORAL TABLET 0.5 tablet by mouth daily 09/09 SPIRONOLACTONE 21447518400 No Longer Active Tu Landeros MD Active ALPRAZOLAM 0.5 MG ORAL TABLET 1 tab every 6hrs as needed ALPRAZOLAM 90828356196 No Longer Active Tu Landeros MD Active AUGMENTIN 875-125 MG ORAL TABLET 1 tab by mouth twice daily with food AMOXICILLIN-POT CLAVULANATE 45336115942 No Longer Active Tu Landeros MD Active PREDNISONE 20 MG ORAL TABLET 2 tabs daily for 3 days, 1 tab daily for 3 days, 1/2 tab daily for 2 days PREDNISONE 67415169739 No Longer Active Tu Landeros MD Active XANAX 0.5 MG ORAL TABLET 1 tablet every 6 hrs prn ALPRAZOLAM 57994312379 No Longer Active Tu Landeros MD Active PREDNISONE 20 MG ORAL TABLET 2 tabs daily for 3 days, 1 tab daily for 3 days, 1/2 tab daily for 2 days PREDNISONE 56032007846 No Longer Active Tu Landeros MD Active TRIAMCINOLONE ACETONIDE 0.1 % EXTERNAL OINTMENT Apply to affected areas TID for up to 2 weeks TRIAMCINOLONE ACETONIDE 84144790783 No Longer Active Tu Landeros MD Active LORTAB 5-500 MG ORAL TABLET 1/2 to 1 tablet by mouth every 4 hours as needed for pain HYDROCODONE-ACETAMINOPHEN 02555836230 No Longer Active Tu Landeros MD Active MULTIVITAMINS TABS Take one by mouth daily MULTIPLE VITAMIN 25503325638 No Longer Active Tu Landeros MD Active MELATONIN 5 MG ORAL TABLET Take one by mouth daily MELATONIN 82444957467 No Longer Active Tu Landeros MD Active SOMA 350 MG ORAL TABLET 1 po q 6 hours prn spasm CARISOPRODOL 72756771417 No Longer Active Tu Landeros MD Active MECLIZINE HCL 25 MG ORAL TABLET CHEWABLE 1 four times a day as needed for dizziness MECLIZINE HCL 69016289533 No Longer Active Fab Morales DO Active ANGEL BREEZE 2 TEST IN VITRO DISK test tid prn GLUCOSE BLOOD 29334223334 No Longer Active Negra Scott RN Active REGLAN 10 MG ORAL TABLET 1 po TID PRN Nausea METOCLOPRAMIDE HCL 20675237601 No Longer Active Tu Landeros MD Active METFORMIN HCL 500 MG ORAL TABLET 1 PO BID METFORMIN HCL 85579313821 No Longer Active Tu Landeros MD Active AMBIEN 10 MG ORAL TABLET 1 tab by mouth at bedtime as needed for sleep 06/10 ZOLPIDEM TARTRATE 53849774682 No Longer Active Tu Landeros MD Active FLUOXETINE HCL 40 MG ORAL CAPSULE 1 po q day FLUOXETINE HCL 76966751372 No Longer Active Mayra Terry Active TRILIPIX 135 MG ORAL CAPSULE DELAYED RELEASE 1 po qd CHOLINE FENOFIBRATE 40991552919 No Longer Active Tu Landeros MD Active AMBIEN 10 MG ORAL TABLET 1 tab by mouth at bedtime as needed for sleep 06/10 AMBIEN 10 MG ORAL TABLET 282132 ZOLPIDEM TARTRATE Inactive METFORMIN HCL 500 MG ORAL TABLET 1 PO BID METFORMIN HCL 500 MG ORAL TABLET 827722 METFORMIN HCL Inactive REGLAN 10 MG ORAL TABLET 1 po TID PRN Nausea REGLAN 10 MG ORAL TABLET 287914 METOCLOPRAMIDE HCL Inactive MECLIZINE HCL 25 MG ORAL TABLET CHEWABLE 1 four times a day as needed for dizziness MECLIZINE HCL 25 MG ORAL TABLET CHEWABLE 541167 MECLIZINE HCL Inactive SOMA 350 MG ORAL TABLET 1 po q 6 hours prn spasm SOMA 350 MG ORAL TABLET 966597 CARISOPRODOL Inactive MELATONIN 5 MG ORAL TABLET Take one by mouth daily MELATONIN 5 MG ORAL TABLET 828974 MELATONIN Inactive MULTIVITAMINS TABS Take one by mouth daily MULTIVITAMINS TABS MULTIPLE VITAMIN Inactive LORTAB 5-500 MG ORAL TABLET 1/2 to 1 tablet by mouth every 4 hours as needed for pain LORTAB 5-500 MG ORAL TABLET 937773 HYDROCODONE-ACETAMINOPHEN Inactive XANAX 0.5 MG ORAL TABLET 1 tablet every 6 hrs prn XANAX 0.5 MG ORAL TABLET 982211 ALPRAZOLAM Inactive AUGMENTIN 875-125 MG ORAL TABLET 1 tab by mouth twice daily with food AUGMENTIN 875-125 MG ORAL TABLET 064316 AMOXICILLIN-POT CLAVULANATE Inactive ALPRAZOLAM 0.5 MG ORAL TABLET 1 tab every 6hrs as needed ALPRAZOLAM 0.5 MG ORAL TABLET 590286 ALPRAZOLAM Inactive SPIRONOLACTONE 25 MG ORAL TABLET 0.5 tablet by mouth daily 09/09 SPIRONOLACTONE 25 MG ORAL TABLET 027046 SPIRONOLACTONE Inactive ACCU-CHEK KEYONA PLUS w/Device KIT [...] times daily as needed ACCU-CHEK FASTCLIX LANCETS 09104888457 LANCETS Inactive TRAMADOL HCL 50 MG ORAL TABLET 1 tablets every 6 hours as needed for pain TRAMADOL HCL 50 MG ORAL TABLET 952080 TRAMADOL HCL Inactive VENLAFAXINE HCL 75 MG ORAL TABLET 1 po BID VENLAFAXINE HCL 75 MG ORAL TABLET 198194 VENLAFAXINE HCL Inactive HYDROCODONE-ACETAMINOPHEN 5-500 MG ORAL TABLET take one po Q 4-6 hours prn HYDROCODONE-ACETAMINOPHEN 5-500 MG ORAL TABLET 946427 HYDROCODONE-ACETAMINOPHEN Inactive LORTAB 5-500 MG ORAL TABLET 1/2 to 1 tablet by mouth every 4 hours as needed for pain LORTAB 5-500 MG ORAL TABLET 486413 HYDROCODONE-ACETAMINOPHEN Inactive LAMISIL 250 MG ORAL TABLET 1 po qd LAMISIL 250 MG ORAL TABLET 074764 TERBINAFINE HCL Inactive VENLAFAXINE HCL 37.5 MG ORAL TABLET 1 po BID VENLAFAXINE HCL 37.5 MG ORAL TABLET 479227 VENLAFAXINE HCL Inactive CIPRO 500 MG ORAL TABLET 1 tablet by mouth twice daily CIPRO 500 MG ORAL TABLET 519359 CIPROFLOXACIN HCL Inactive VENLAFAXINE HCL 75 MG ORAL TABLET 1 po BID VENLAFAXINE HCL 75 MG ORAL TABLET 694875 VENLAFAXINE HCL Inactive SIMVASTATIN 40 MG ORAL TABLET Take one by mouth daily SIMVASTATIN 40 MG ORAL TABLET 005983 SIMVASTATIN Inactive OMEPRAZOLE 20 MG ORAL TABLET DELAYED RELEASE 1 PO 30 MIN BEFORE 1ST MEAL 2010 OMEPRAZOLE 20 MG ORAL TABLET DELAYED RELEASE 163845 OMEPRAZOLE Inactive FENOFIBRATE 145 MG ORAL TABLET 1 po qd FENOFIBRATE 145 MG ORAL TABLET 632337 FENOFIBRATE Inactive BACTRIM DS 800-160 MG ORAL TABLET 1 bid x 14 day start 09-28-13 BACTRIM DS 800-160 MG ORAL TABLET 373366 SULFAMETHOXAZOLE- TRIMETHOPRIM Inactive B-12 100 MCG ORAL TABLET Take one by mouth daily B-12 100 MCG ORAL TABLET CYANOCOBALAMIN Inactive GABAPENTIN 100 MG ORAL CAPSULE 1 po bid GABAPENTIN 100 MG ORAL CAPSULE 227591 GABAPENTIN Inactive HYDROCODONE-ACETAMINOPHEN 5-325 MG ORAL TABLET 1 tab by mouth every 6 hours as needed for pain HYDROCODONE-ACETAMINOPHEN 5-325 MG ORAL TABLET 985018 HYDROCODONE-ACETAMINOPHEN Inactive CIPRO 500 MG ORAL TABLET 1 bid x 14 days start 09-28-13 CIPRO 500 MG ORAL TABLET 718978 CIPROFLOXACIN HCL Inactive ALIGN 4 MG ORAL [...] SODIUM 50 MG ORAL TABLET DELAYED RELEASE 804213 DICLOFENAC SODIUM Inactive PREDNISONE 20 MG ORAL TABLET 2 tablets once daily for 2 days, then 1 tablet once daily for 2 days PREDNISONE 20 MG ORAL TABLET 347796 PREDNISONE Inactive TRUEDRAW LANCING DEVICE Test twice a day dx 250.0 TRUEDRAW LANCING DEVICE LANCET DEVICES Inactive TRUERESULT BLOOD GLUCOSE w/Device KIT test blood sugar twice daily dx 250.00 TRUERESULT BLOOD GLUCOSE w/Device KIT BLOOD GLUCOSE MONITORING SUPPL Inactive FLONASE 50 MCG/ACT NASAL SUSPENSION 1 spray each nostril twice daily until bottle empty FLONASE 50 MCG/ACT NASAL SUSPENSION 0954933 FLUTICASONE PROPIONATE Inactive VENTOLIN HFA 108 (90 Base) MCG/ACT INHALATION AEROSOL SOLUTION 1-2 puffs every 4 hours if needed for cough/congestion VENTOLIN HFA 108 (90 Base) MCG/ACT INHALATION AEROSOL SOLUTION ALBUTEROL SULFATE Inactive REQUIP 2 MG ORAL TABLET Take one tablet at bedtime prn REQUIP 2 MG ORAL TABLET 524929 ROPINIROLE HCL Inactive SUPER B COMPLEX/VITAMIN C ORAL TABLET 1 qd SUPER B COMPLEX/VITAMIN C ORAL TABLET 23884048111 B COMPLEX-C Inactive TRUEDRAW LANCING DEVICE test blood sugar twice daily dx: 250.00 TRUEDRAW LANCING DEVICE LANCET DEVICES Inactive TRUETEST TEST IN VITRO STRIP test blood sugar twice daily. DX 250.0 TRUETEST TEST IN VITRO STRIP GLUCOSE BLOOD Inactive CYCLOBENZAPRINE HCL 10 MG ORAL TABLET 1 po TID PRN Muscle Spasm CYCLOBENZAPRINE HCL 10 MG ORAL TABLET 875857 CYCLOBENZAPRINE HCL Inactive DICLOFENAC SODIUM 50 MG ORAL TABLET DELAYED RELEASE 1 po BID PRN Pain DICLOFENAC SODIUM 50 MG ORAL TABLET DELAYED RELEASE 249734 DICLOFENAC SODIUM Inactive DICLOFENAC SODIUM 75 MG ORAL TABLET DELAYED RELEASE 1 po BID PRN Pain DICLOFENAC SODIUM 75 MG ORAL TABLET DELAYED RELEASE 971060 DICLOFENAC SODIUM Inactive TRIAMCINOLONE ACETONIDE 0.1 % EXTERNAL OINTMENT Apply to affected areas TID for up to 2 weeks TRIAMCINOLONE ACETONIDE 0.1 % EXTERNAL OINTMENT 5007307 TRIAMCINOLONE ACETONIDE Inactive PREDNISONE 20 MG ORAL TABLET 2 tabs daily for 3 days, 1 tab daily for 3 days, 1/2 tab daily for 2 days PREDNISONE 20 MG ORAL TABLET 545538 PREDNISONE Inactive PREDNISONE 20 MG ORAL TABLET 2 tabs daily for 3 days, 1 tab daily for 3 days, 1/2 tab daily for 2 days PREDNISONE 20 MG ORAL TABLET 704154 PREDNISONE Inactive BACTRIM DS 800-160 MG ORAL TABLET 1 po BID x 7 days BACTRIM DS 800-160 MG ORAL TABLET 805099 SULFAMETHOXAZOLE-TRIMETHOPRIM Inactive ZITHROMAX 250 MG ORAL TABLET 2 po today, then 1 po q days 2-5 ZITHROMAX 250 MG ORAL TABLET 388203 AZITHROMYCIN Inactive Advance Directives Directive Description Start Date DISCUSSED WITH PATIENT -- NO DECISION MADE Immunizations Vaccine Administration Date Value Standard Description Seasonal influenza vaccine, injectable, containing preservative, for > 3 years old (Afluria, FluLaval, Fluzone, Fluvirin, Fluarix, Agriflu(>=18 yo)) Fluzone (>3 yrs.) [[id number]] Influenza, seasonal, injectable influenza immunization (Flu Vax) has been administered 02/22/2012 influenza virus vaccine, unspecified formulation Seasonal influenza vaccine, injectable, containing preservative, for > 3 years old (Afluria, FluLaval, Fluzone, Fluvirin, Fluarix, Agriflu(>=18 yo)) Fluzone (>3 yrs.) [[id number]] Influenza, seasonal, injectable Vital Signs Date Name [...] ... - Chemistry sodium, serum 141 mmol/L 850-480 6179/01/16 carbon dioxide, venous blood 28.3 mmol/L 21.0-32.0 [...] 6.7 % 4.3-6.0 cholesterol, serum 106 mg/dL 924-169 5991/01/16 triglyceride, serum, fasting 173 mg/dL 30-200 HDL [...] A1c - Chemistry cholesterol, serum 135 mg/dL 161-158 8656/05/17 HDL cholesterol, serum 41 mg/dL > OR=46 triglyceride, serum, fasting 206 mg/dL <150 LDL cholesterol, serum 53 MG/DL (CALC) mg/dL <130 cholesterol/HDL ratio, serum 3.3 (calc) < OR=5.0 Lab Report: HGBA1C - Chemistry hemoglobin A1C, blood, as % of total hemoglobin 6.5 % 4.3-6.0 Encounters Code Encounter Date Provider Facility CPT-71349 Level 4 Est. Patient 13:42:02 DIGITAL ASSISTANT Tu Landeros MD [facility] CPT-43480 Level 3 Est. Patient 14:20:36 CDT Tu Landeros MD [facility] CPT-83904 Level 4 Est. Patient 14:28:34 CDT Tu Landeros MD [facility] CPT-22943 Level 3 Est. Patient 13:33:09 CDT Tu Landeros MD [facility] CPT-54999 Level 4 Est. Patient 14:29:21 CDT Tu Landeros MD [facility] CPT-53023 Level 4 Est. Patient 09:08:17 DIGITAL ASSISTANT Tu Landeros MD [facility] CPT-42880 Level 4 Est. Patient 14:40:19 CDT Tu Landeros MD [facility] CPT-01361 Level 4 Est. Patient 14:06:04 DIGITAL ASSISTANT Tu Landeros MD [facility] CPT-04283 Level 3 Est. Patient 14:05:18 DIGITAL ASSISTANT Tu Landeros MD [facility] CPT-86192 Level 3 Est. Patient 10:06:54 DIGITAL ASSISTANT Miranda Suresh APRN [facility] CPT-93347 Level 4 Est. Patient 13:50:18 DIGITAL ASSISTANT Tu Landeros MD [facility] CPT-62446 Level 3 Est. Patient 10:30:04 CDT Tu Landeros MD [facility] CPT-39409 Level 4 Est. Patient 11:03:38 CDT Tu Landeros MD [facility] CPT-65434 Level 3 Est. Patient 10:20:44 CDT Fab Morales DO [facility] CPT-75208 Level 4 Est. Patient 14:38:57 CDT Tu Landeros MD [facility] CPT-08789 Level 4 Est. Patient 14:27:39 DIGITAL ASSISTANT Tu Landeros MD [facility] CPT-00227 Level 4 Est. Patient 09:45:25 CDT Tu Landeros MD [facility] CPT-67330 Level 4 Est. Patient 09:05:20 DIGITAL ASSISTANT Tu Landeros MD [facility] CPT-52493 Level 4 Est. Patient 14:09:06 CDT Tu Landeros MD [facility] CPT-80304 Level 3 Est. Patient 13:36:54 CDT Tu Landeros MD [facility] CPT-90939 Level 3 Est. Patient 08:59:14 CDT Tu Landeros MD [facility] CPT-05422 Level 3 Est. Patient 13:48:35 CDT Fab Morales DO [facility] CPT-39540 Level 4 Est. Patient 10:05:48 CDT Tu Landeros MD [facility] CPT-67860 Level 3 Est. Patient 13:38:42 CDT Marek BANKS [facility] CPT-69967 Level 5 Est. Patient 08:08:39 CDT Jerrica FRANCIS [facility] CPT-09431 Level 4 Est. Patient 14:23:38 CDT Tu Landeros MD [facility] CPT-12342 Level 3 Est. Patient 11:44:04 CDT Tu Landeros MD [facility] CPT-49395 Level 3 Est. Patient 11:03:20 DIGITAL ASSISTANT Tu Landeros MD [facility] CPT-95125 Level 3 Est. Patient 11:03:14 DIGITAL ASSISTANT Tu Landeros MD [facility] CPT-98060 Level 3 Est. Patient 12:42:49 CDT Tu Landeros MD [facility] CPT-61444 Level 3 Est. Patient 11:52:06 CDT Tu Landeros MD [facility] CPT-99322 Level 3 Est. Patient 13:58:11 CDT Tu Landeros MD [facility] CPT-36365 Level 3 Est. Patient 17:50:07 CDT Fab Morales DO [facility] CPT-30366 Level 3 Est. Patient 12:06:29 CDT Elvira Cervantes MD, PhD [facility] CPT-02039 Level 3 Est. Patient 15:50:32 CDT Tu Landeros MD [facility] CPT-04149 Level 4 Est. Patient 16:08:29 CDT Tu Landeros MD [facility] CPT-11186 Level 3 Est. Patient 16:04:19 CDT Tu Landeros MD [facility] CPT-79082 Level 3 Est. Patient 11:22:30 DIGITAL ASSISTANT Tu Landeros MD [facility] CPT-75066 Level 4 Est. Patient 16:24:02 DIGITAL ASSISTANT Tu Landeros MD [facility] CPT-05735 Level 3 Est. Patient 17:21:23 DIGITAL ASSISTANT Tu Landeros MD [facility] Procedures Code Procedure Name Date Entry Date Standard Description CPT-80863 Shoulder, right, comp min 2V - XRAY USE ONLY 13:50:22 CDT CPT-G0009 Administration of Pneumococcal Vaccine 15:08:26 CDT CPT-82132 Prevnar 13 Intramuscular Suspension 15:08:26 CDT 10/08 CPT-G0439 [facility] Annual Wellness Exam 14:29:22 CDT CPT-73573 Venipuncture Draw Fee 13:15:35 CDT CPT-55459 Magnesium - LAB USE ONLY 11:14:20 DIGITAL ASSISTANT CPT-73355 Lipid - LAB USE ONLY 11:14:20 DIGITAL ASSISTANT CPT-73483 HGBA1C - LAB USE ONLY 11:14:20 DIGITAL ASSISTANT CPT-26959 CMP - LAB USE ONLY 11:14:19 DIGITAL ASSISTANT CPT-13017 CBC - LAB USE ONLY 11:14:19 DIGITAL ASSISTANT CPT-65921 Venipuncture Draw Fee 11:14:18 DIGITAL ASSISTANT CPT-82338 First Vx - Ix admin for Medicare patients 16:46:52 CDT CPT-09154 Fluzone Preservative Free Intramuscular Suspension 16:46 :51 CDT CPT-93251 CBC - LAB USE ONLY 17:14:46 CDT CPT-42942 HGBA1C - LAB USE ONLY 17:14:46 CDT CPT-39852 Venipuncture Draw Fee 17:14:46 CDT CPT-G0438 Initial Annual Wellness Exam 14:13:04 CDT CPT-56910 Breathing Tx 10:06:54 DIGITAL ASSISTANT CPT-63425 Postop F/U Visit 10:02:45 CDT CPT-LR Lesion Removal 09:02:56 CDT CPT-JTINJ Asp/Joint Injection 15:51:27 DIGITAL ASSISTANT CPT-OV Office Visit 15:52:02 DIGITAL ASSISTANT CPT-OV Office Visit 15:45:11 CDT CPT-000 Give Zostavax 14:09:06 CDT CPT-04511 Administration single or combination vaccine inc oral 15 :19:04 CDT CPT-33618 Zoster Vaccine (Zostavax) 15:19:04 CDT CPT-17695 Administration single or combination vaccine inc oral 20 :51:03 CDT CPT-13247 Influenza split virus > age 3 20:51:03 CDT CPT-46424 No Charge Offi Visit 14:52:03 CDT CPT-OV Office Visit 14:57:43 CDT CPT-OV Office Visit 15:22:32 CDT CPT-65506 Administration single or combination vaccine inc oral 11 :33:15 CDT CPT-26195 Influenza split virus > age 3 11:33:15 CDT
--- OUTSIDE RECORDS SUMMARY | 2018-04-25 16:07 | XMS REPORT | Clinical Summary ---
Author Author Admin, SACHI Clemons [facility] Address Unknown Phone Unavailable Allergies, [...] involving unspecified site Ear pain, bilateral 388.70 Active Fab Morales DO Otalgia, unspecified POSTMENOPAUSAL BLEEDING ICD-627.1 Inactive Elvira Cervantes [...] OR LUMP ICD-782.2 Inactive Tu Landeros MD Open wound of abdominal wall, anterior, complicated ICD-879.3 Inactive Tu Landeros MD Upper respiratory infection, viral ICD-465.9 Inactive Shaun Sy MD Open wound of other and unspecified parts of trunk, complicated ICD-879.7 Inactive Tu Landeros MD Knee pain, left, acute ICD-719.46 Inactive Tu Landeros MD ONYCHOMYCOSIS ICD-110.1 Inactive Tu Landeros MD Medication List Medication Instructions Start Date Stop Date Generic Name NDC Status Provider Patient Instruction FLONASE 50 MCG/ACT SUSP 1 spray each nostril twice daily until bottle empty FLUTICASONE PROPIONATE 60500198367 Active Fab Morales DO Active PREDNISONE 20 MG TAB 2 tablets once daily for 2 days, then 1 tablet once daily for 2 days PREDNISONE 06886508958 Active Fab Morales DO Active DICLOFENAC SODIUM 50 MG TBEC 1 tablet by mouth three times a day as needed DICLOFENAC SODIUM 74157842837 No Longer Active Fab Morales DO Active METFORMIN HCL 850 MG TABS 1 tablet by mouth twice daily METFORMIN HCL 59142753114 Active Tu Landeros MD Active TRUEDRAW LANCING DEVICE MISC test blood sugar twice daily dx: 250.00 LANCET DEVICES 94221777870 Active Tu Landeros MD Active TRUEDRAW LANCING DEVICE MISC Test twice a day dx 250.0 LANCET DEVICES 67308689710 Active Tu Landeros MD Active TRUERESULT BLOOD GLUCOSE W/DEVICE KIT test blood sugar twice daily dx 250.00 BLOOD GLUCOSE MONITORING SUPPL 28713213736 Active Tu Landeros MD Active TRUETEST TEST INVITR STRP test blood sugar twice daily. DX 250.0 GLUCOSE BLOOD 81674969678 Active Tu Landeros MD Active EMBRACE BLOOD GLUCOSE TEST STRP test blood sugar twice daily DX 250.0 2014 GLUCOSE BLOOD 14401031417 No Longer Active Tu Landeros MD Active TRUETEST TEST STRP test blood sugar three times daily dx: 250.00 GLUCOSE BLOOD 76304266024 No Longer Active Suze Hardenehart NURYSMahendra Active TRUERESULT BLOOD GLUCOSE W/DEVICE KIT use to test blood sugar tid dx: 250.00 BLOOD GLUCOSE MONITORING SUPPL 32891405945 No Longer Active Suze Hardenosbaldo VOGEL Active ALIGN 4 MG CAPS 1 tid PROBIOTIC PRODUCT 70836654576 No Longer Active Shaun Sy MD Active CIPRO 500 MG TABS 1 bid x 14 days start 09-28-13 CIPROFLOXACIN HCL 78462907739 No Longer Active Shaun Sy MD Active TRAMADOL HCL 50 MG TABS 1-2 tablets every 6 hours as needed for pain TRAMADOL HCL 90726518416 Active Tu Landeros MD Active HYDROCODONE-ACETAMINOPHEN 5-325 MG TABS 1 tab by mouth every 6 hours as needed for pain HYDROCODONE-ACETAMINOPHEN 89610685249 No Longer Active Tu Landeros MD Active OMEPRAZOLE 20 MG CPDR 1 po q a.m. OMEPRAZOLE 66384518510 Active Elvira Cervantes MD PhD Active GABAPENTIN 100 MG CAPS 1 po bid GABAPENTIN 56866282646 No Longer Active Tu Landeros MD Active B-12 100 MCG TABS Take one by mouth daily CYANOCOBALAMIN 99215769087 No Longer Active Tu Landeros MD Active GABAPENTIN 100 MG CAPS by mouth twice a day GABAPENTIN 05632504817 Active Tu Landeros MD Active BACTRIM DS 800-160 MG TABS 1 bid x 14 day start 09-28-13 SULFAMETHOXAZOLE-TRIMETHOPRIM 72608015923 No Longer Active Tu Landeros MD Active SIMVASTATIN 40 MG TABS 1 tab daily at bedtime SIMVASTATIN 31262831852 Active Tu Landeros MD Active CARVEDILOL 12.5 MG TABS 1 po BID CARVEDILOL 32389677967 Active Tu Landeros MD Active SUPER B COMPLEX/VITAMIN C TABS 1 qd B COMPLEX-C 45697149810 Active JASPREET Perez Active TRILIPIX 135 MG CPDR 1 q hs CHOLINE FENOFIBRATE 95402643024 Active Tu Landeros MD Active FENOFIBRATE 145 MG TABS 1 po qd FENOFIBRATE 60960806087 No Longer Active JASPREET Perez Active OMEPRAZOLE 20 MG TBEC 1 PO 30 MIN BEFORE 1ST MEAL OMEPRAZOLE 22401209041 No Longer Active JASPREET Perez Active SIMVASTATIN 40 MG TABS Take one by mouth daily SIMVASTATIN 99942854255 No Longer Active JASPREET Perez Active VENLAFAXINE HCL 37.5 MG TABS 1 bid VENLAFAXINE HCL 58308596989 Active Tu Landeros MD Active VENLAFAXINE HCL 75 MG TABS 1 po BID VENLAFAXINE HCL 05567820730 No Longer Active JASPREET Perez Active CIPRO 500 MG TAB 1 tablet by mouth twice daily CIPROFLOXACIN HCL 15495506931 No Longer Active Tu Landeros MD Active VENLAFAXINE HCL 37.5 MG TABS 1 po BID VENLAFAXINE HCL 33761476787 No Longer Active Suzebianca VOGEL Active [employer] STOOL SOFTENER 100 MG CAPS 1 tab daily DOCUSATE SODIUM 74857420539 Active Tu Landeros MD Active LAMISIL 250 MG TAB 1 po qd TERBINAFINE HCL 97350532975 No Longer Active Tu Landeros MD Active LORTAB 5 5-500 MG TABS 1/2 to 1 tablet by mouth every 4 hours as needed for pain HYDROCODONE-ACETAMINOPHEN 73515207112 No Longer Active Tu Landeros MD Active ENALAPRIL MALEATE 20 MG TABS 1.5 po qd ENALAPRIL MALEATE 03213162475 Active Tu Landeros MD Active HYDROCODONE-ACETAMINOPHEN 5-500 MG TABS take one po Q 4-6 hours prn HYDROCODONE-ACETAMINOPHEN 72580519525 No Longer Active Tu Landeros MD Active BACTRIM DS 800-160 MG TABS 1 po BID x 7 days SULFAMETHOXAZOLE-TRIMETHOPRIM 07068407263 No Longer Active Tu Landeros MD Active VENLAFAXINE HCL 75 MG TABS 1 po BID VENLAFAXINE HCL 70869566053 No Longer Active Elvira Cervantes MD PhD Active TRAMADOL HCL 50 MG TABS 1 tablets every 6 hours as needed for pain TRAMADOL HCL 72903584421 No Longer Active Tu Landeros MD Active ACCU-CHEK FASTCLIX LANCETS MISC Use to check bloodsugar three times daily as needed LANCETS 28379067399 No Longer Active Tu Landeros MD Active ACCU-CHEK KEYONA PLUS STRP Use for testing bloodsugars three times daily as needed GLUCOSE BLOOD 83775887789 No Longer Active Tu Landeros MD Active ACCU-CHEK KEYONA PLUS W/DEVICE KIT Use for testing bloodsugars three times daily as needed BLOOD GLUCOSE MONITORING SUPPL 36836923525 No Longer Active Tu Landeros MD Active SPIRONOLACTONE 25 MG TAB 0.5 tablet by mouth daily SPIRONOLACTONE 77536289494 No Longer Active Tu Landeros MD Active ALPRAZOLAM 0.5 MG TABS 1 tab every 6hrs as needed ALPRAZOLAM 25433319093 No Longer Active Tu Landeros MD Active AUGMENTIN 875-125 MG TAB 1 tab by mouth twice daily with food AMOXICILLIN-POT CLAVULANATE 20029206438 No Longer Active Tu Landeros MD Active PREDNISONE 20 MG TAB 2 tabs daily for 3 days, 1 tab daily for 3 days, 1/2 tab daily for 2 days PREDNISONE 42867501180 No Longer Active Tu Landeros MD Active XANAX 0.5 MG TABS 1 tablet every 6 hrs prn ALPRAZOLAM 44823103868 No Longer Active Tu Landeros MD Active PREDNISONE 20 MG TAB 2 tabs daily for 3 days, 1 tab daily for 3 days, 1/2 tab daily for 2 days PREDNISONE 39608735735 No Longer Active Tu Landeros MD Active TRIAMCINOLONE ACETONIDE 0.1 % OINT Apply to affected areas TID for up to 2 weeks TRIAMCINOLONE ACETONIDE 13447881664 No Longer Active Tu Landeros MD Active LORTAB 5 5-500 MG TABS 1/2 to 1 tablet by mouth every 4 hours as needed for pain HYDROCODONE-ACETAMINOPHEN 95809073569 No Longer Active Tu Landeros MD Active MULTIVITAMINS TABS Take one by mouth daily MULTIPLE VITAMIN 47727958632 No Longer Active Tu Landeros MD Active MELATONIN 5 MG TABS Take one by mouth daily MELATONIN 09782350614 No Longer Active Tu Landeros MD Active SOMA 350 MG TAB 1 po q 6 hours prn spasm CARISOPRODOL 03012895926 No Longer Active Tu Landeros MD Active MECLIZINE HCL 25 MG CHEW TAB 1 four times a day as needed for dizziness 08/05 MECLIZINE HCL 96699139718 No Longer Active Fab Morales DO Active ANGEL BREEZE 2 TEST DISK test tid prn GLUCOSE BLOOD 20750541153 No Longer Active Negra Scott RN Active REGLAN 10 MG TAB 1 po TID PRN Nausea METOCLOPRAMIDE HCL 91781912724 No Longer Active Tu Landeros MD Active METFORMIN HCL 500 MG TABS 1 PO BID METFORMIN HCL 81815301352 No Longer Active Tu Landeros MD Active AMBIEN 10 MG TAB 1 tab by mouth at bedtime as needed for sleep ZOLPIDEM TARTRATE 38927477223 No Longer Active Tu Landeros MD Active FLUOXETINE HCL 40 MG CAPS 1 po q day FLUOXETINE HCL 33635055663 No Longer Active Mayra Terry Active FISH OIL 1000 MG CAPS Take one by mouth daily OMEGA-3 FATTY ACIDS 87019569847 Active Tu Landeros MD Active GLUCOSAMINE 500 MG TABS Take 2 tab po qd GLUCOSAMINE 82276264410 Active Tu Landeros MD Active TRILIPIX 135 MG CPDR 1 po qd CHOLINE FENOFIBRATE 43617616338 No Longer Active Tu Landeros MD Active ASPIRIN 81 MG CHEW TAB 1 tablet by mouth daily ASPIRIN 85711126468 Active Tu Landeros MD Active FUROSEMIDE 40 MG TAB 1 tablet by mouth daily FUROSEMIDE 80612458949 Active Tu Landeros MD Active REQUIP 2 MG TABS Take one tablet at bedtime prn ROPINIROLE HCL 38526112371 Active Tu Landeros MD Active KLOR-CON 10 10 MEQ CR-TABS TAKE 2 TABS DAILY POTASSIUM CHLORIDE 56726565715 Active Tu Landeros MD Active AMBIEN 10 MG TAB 1 tab by mouth at bedtime as needed for sleep AMBIEN 10 MG TAB 197162 ZOLPIDEM TARTRATE Inactive METFORMIN HCL 500 MG TABS 1 PO BID METFORMIN HCL 500 MG TABS 256415 METFORMIN HCL Inactive REGLAN 10 MG TAB 1 po TID PRN Nausea REGLAN 10 MG TAB 499386 METOCLOPRAMIDE HCL Inactive MECLIZINE HCL 25 MG CHEW TAB 1 four times a day as needed for dizziness 08/05 MECLIZINE HCL 25 MG CHEW TAB 333765 MECLIZINE HCL Inactive SOMA 350 MG TAB 1 po q 6 hours prn spasm SOMA 350 MG TAB 519850 CARISOPRODOL Inactive MELATONIN 5 MG TABS Take one by mouth daily MELATONIN 5 MG TABS 463557 MELATONIN Inactive MULTIVITAMINS TABS Take one by mouth daily MULTIVITAMINS TABS MULTIPLE VITAMIN Inactive LORTAB 5 5-500 MG TABS 1/2 to 1 tablet by mouth every 4 hours as needed for pain LORTAB 5 5-500 MG TABS HYDROCODONE- ACETAMINOPHEN Inactive XANAX 0.5 MG TABS 1 tablet every 6 hrs prn XANAX 0.5 MG TABS 027169 ALPRAZOLAM Inactive AUGMENTIN 875-125 MG TAB 1 tab by mouth twice daily with food AUGMENTIN 875-125 MG TAB 761087 AMOXICILLIN-POT CLAVULANATE Inactive ALPRAZOLAM 0.5 MG TABS 1 tab every 6hrs as needed ALPRAZOLAM 0.5 MG TABS 489957 ALPRAZOLAM Inactive SPIRONOLACTONE 25 MG TAB 0.5 tablet by mouth daily SPIRONOLACTONE 25 MG TAB 567569 SPIRONOLACTONE Inactive ACCU-CHEK KEYONA PLUS W/DEVICE KIT Use for testing bloodsugars three times daily as needed ACCU-CHEK KEYONA PLUS W/DEVICE KIT BLOOD GLUCOSE MONITORING SUPPL Inactive ACCU-CHEK KEYONA PLUS STRP Use for testing bloodsugars three times daily as needed ACCU-CHEK KEYONA PLUS STRP GLUCOSE BLOOD Inactive ACCU-CHEK FASTCLIX LANCETS MISC Use to check bloodsugar three times daily as needed ACCU-CHEK FASTCLIX LANCETS MISC 40422121790 LANCETS Inactive TRAMADOL HCL 50 MG TABS 1 tablets every 6 hours as needed for pain TRAMADOL HCL 50 MG TABS 156872 TRAMADOL HCL Inactive VENLAFAXINE HCL 75 MG TABS 1 po BID VENLAFAXINE HCL 75 MG TABS 490407 VENLAFAXINE HCL Inactive HYDROCODONE-ACETAMINOPHEN 5-500 MG TABS take one po Q 4-6 hours prn HYDROCODONE-ACETAMINOPHEN 5-500 MG TABS HYDROCODONE- ACETAMINOPHEN Inactive LORTAB 5 5-500 MG TABS 1/2 to 1 tablet by mouth every 4 hours as needed for pain LORTAB 5 5-500 MG TABS HYDROCODONE- ACETAMINOPHEN Inactive LAMISIL 250 MG TAB 1 po qd LAMISIL 250 MG TAB 411784 TERBINAFINE HCL Inactive VENLAFAXINE HCL 37.5 MG TABS 1 po BID VENLAFAXINE HCL 37.5 MG TABS 417361 VENLAFAXINE HCL Inactive CIPRO 500 MG TAB 1 tablet by mouth twice daily CIPRO 500 MG TAB 744936 CIPROFLOXACIN HCL Inactive VENLAFAXINE HCL 75 MG TABS 1 po BID VENLAFAXINE HCL 75 MG TABS 998495 VENLAFAXINE HCL Inactive SIMVASTATIN 40 MG TABS Take one by mouth daily SIMVASTATIN 40 MG TABS 038375 SIMVASTATIN Inactive OMEPRAZOLE 20 MG TBEC 1 PO 30 MIN BEFORE 1ST MEAL OMEPRAZOLE 20 MG TBEC 552977 OMEPRAZOLE Inactive FENOFIBRATE 145 MG TABS 1 po qd FENOFIBRATE 145 MG TABS 042300 FENOFIBRATE Inactive BACTRIM DS 800-160 MG TABS 1 bid x 14 day start 09-28-13 BACTRIM DS 800-160 MG TABS SULFAMETHOXAZOLE-TRIMETHOPRIM Inactive B-12 100 MCG TABS Take one by mouth daily B-12 100 MCG TABS CYANOCOBALAMIN Inactive GABAPENTIN 100 MG CAPS 1 po bid GABAPENTIN 100 MG CAPS 305473 GABAPENTIN Inactive HYDROCODONE-ACETAMINOPHEN 5-325 MG TABS 1 tab by mouth every 6 hours as needed for pain HYDROCODONE-ACETAMINOPHEN 5-325 MG TABS 745553 HYDROCODONE-ACETAMINOPHEN Inactive CIPRO 500 MG TABS 1 bid x 14 days start 09-28-13 CIPRO 500 MG TABS 785681 CIPROFLOXACIN HCL Inactive ALIGN 4 MG CAPS [...] as needed DICLOFENAC SODIUM 50 MG TBEC 363642 DICLOFENAC SODIUM Inactive TRIAMCINOLONE ACETONIDE 0.1 % OINT Apply to affected areas TID for up to 2 weeks TRIAMCINOLONE ACETONIDE 0.1 % OINT 8591454 TRIAMCINOLONE ACETONIDE Inactive PREDNISONE 20 MG TAB 2 tabs daily for 3 days, 1 tab daily for 3 days, 1/2 tab daily for 2 days PREDNISONE 20 MG TAB 413498 PREDNISONE Inactive PREDNISONE 20 MG TAB 2 tabs daily for 3 days, 1 tab daily for 3 days, 1/2 tab daily for 2 days PREDNISONE 20 MG TAB 484854 PREDNISONE Inactive BACTRIM DS 800-160 MG TABS 1 po BID x 7 days BACTRIM DS 800-160 MG TABS SULFAMETHOXAZOLE-TRIMETHOPRIM Inactive Immunizations Vaccine Administration Date Value Standard Description Seasonal influenza vaccine, injectable, containing preservative, for > 3 years old (Afluria, FluLaval, Fluzone, Fluvirin, Fluarix, Agriflu(>=18 yo)) Fluzone (>3 yrs.) [[id number]] Influenza, seasonal, injectable influenza immunization (Flu Vax) has been administered 02/22/2012 influenza virus vaccine, unspecified formulation Seasonal influenza vaccine, injectable, containing preservative, for > 3 years old (Afluria, FluLaval, Fluzone, Fluvirin, Fluarix, Agriflu(>=18 yo)) Fluzone (>3 yrs.) [[id number]] Influenza, seasonal, injectable Vital Signs Date Name [...] Report: Basic Metabolic Panel, CBC - Chemistry carbon dioxide, venous blood 30.3 mmol/L 21.0-32.0 chloride, serum 105 mmol/L 98-107 potassium, serum 4.9 mmol/L 3.5-5.2 sodium, serum 143 mmol/L 894-781 5269/03/10 blood glucose 141 mg/dL 65-110 calcium, serum [...] 0.30 mg/dL 0.00-1.00 cholesterol, serum 111 mg/dL 123-252 9788/07/28 triglyceride, serum, fasting 177 mg/dL 30-200 HDL [...] mg/dL Encounters Code Encounter Date Provider Facility CPT-47043 Level 3 Est. Patient 10:20:44 CDT Fab Morales DO [facility] CPT-75026 Level 4 Est. Patient 14:38:57 CDT Tu Landeros MD [facility] CPT-78115 Level 4 Est. Patient 14:27:39 ENERGY CONSERVATION REPRESENTATIVE Tu Landeros MD [facility] CPT-68955 Level 4 Est. Patient 09:45:25 CDT Tu Landeros MD [facility] CPT-88077 Level 4 Est. Patient 09:05:20 ENERGY CONSERVATION REPRESENTATIVE Tu Landeros MD [facility] CPT-03709 Level 4 Est. Patient 14:09:06 CDT Tu Landeros MD [facility] CPT-93219 Level 3 Est. Patient 13:36:54 CDT Tu Landeros MD [facility] CPT-44246 Level 3 Est. Patient 08:59:14 CDT Tu Landeros MD [facility] CPT-10168 Level 3 Est. Patient 13:48:35 CDT Fab Morales DO [facility] CPT-25742 Level 4 Est. Patient 10:05:48 CDT Tu Landeros MD [facility] CPT-20770 Level 3 Est. Patient 13:38:42 CDT Marek BANKS [facility] CPT-09081 Level 5 Est. Patient 08:08:39 CDT Jerrica FRANCIS [facility] CPT-69416 Level 4 Est. Patient 14:23:38 CDT Tu Landeros MD [facility] CPT-46446 Level 3 Est. Patient 11:44:04 CDT Tu Landeros MD [facility] CPT-45187 Level 3 Est. Patient 11:03:20 ENERGY CONSERVATION REPRESENTATIVE Tu Landeros MD [facility] CPT-10881 Level 3 Est. Patient 11:03:14 ENERGY CONSERVATION REPRESENTATIVE Tu Landeros MD [facility] CPT-97030 Level 3 Est. Patient 12:42:49 CDT Tu Landeros MD [facility] CPT-75025 Level 3 Est. Patient 11:52:06 CDT Tu Landeros MD [facility] CPT-60453 Level 3 Est. Patient 13:58:11 CDT Tu Landeros MD [facility] CPT-80478 Level 3 Est. Patient 17:50:07 CDT Fab Morales DO [facility] CPT-70693 Level 3 Est. Patient 12:06:29 CDT Elvira Cervantes MD PhD [facility] CPT-96609 Level 3 Est. Patient 15:50:32 CDT Tu Landeros MD [facility] CPT-81845 Level 4 Est. Patient 16:08:29 CDT Tu Landeros MD [facility] CPT-98825 Level 3 Est. Patient 16:04:19 CDT Tu Landeros MD [facility] CPT-46363 Level 3 Est. Patient 11:22:30 ENERGY CONSERVATION REPRESENTATIVE Tu Landeros MD [facility] CPT-39189 Level 4 Est. Patient 16:24:02 ENERGY CONSERVATION REPRESENTATIVE Tu Landeros MD [facility] CPT-19723 Level 3 Est. Patient 17:21:23 ENERGY CONSERVATION REPRESENTATIVE Tu Landeros MD [facility] Procedures Code Procedure Name Date Entry Date Standard Description CPT-JTINJ Asp/Joint Injection 15:51:27 ENERGY CONSERVATION REPRESENTATIVE CPT-OV Office Visit 15:52:02 ENERGY CONSERVATION REPRESENTATIVE CPT-OV Office Visit 15:45:11 CDT CPT-000 Give Zostavax 14:09:06 CDT CPT-05602 Administration single or combination vaccine inc oral 15 :19:04 CDT CPT-56230 Zoster Vaccine (Zostavax) 15:19:04 CDT CPT-88283 Administration single or combination vaccine inc oral 20 :51:03 CDT CPT-04607 Influenza split virus > age 3 20:51:03 CDT CPT-40520 No Charge Offi Visit 14:52:03 CDT CPT-OV Office Visit 14:57:43 CDT CPT-OV Office Visit 15:22:32 CDT CPT-56653 Administration single or combination vaccine inc oral 11 :33:15 CDT CPT-17163 Influenza split virus > age 3 11:33:15 CDT
--- OUTSIDE RECORDS SUMMARY | 2018-04-25 16:09 | XMS REPORT | Clinical Summary ---
Author Author Admin, SACHI Organization [employer] Address Unknown Phone Unavailable Allergies, Adverse [...] MG ORAL TABS 1 po qd GLIPIZIDE 80926798654 Active Tu Landeros MD Active VENLAFAXINE HCL 75 MG ORAL TABS 1 po BID VENLAFAXINE HCL 35716974558 Active Tu Landeros MD Active GLIMEPIRIDE 1 MG ORAL TABS 1 po qd GLIMEPIRIDE 82757234372 No Longer Active Tu Landeros MD Active TRUE METRIX BLOOD GLUCOSE TEST INVITR STRP Test blood sugar BID Dx: E11.9 GLUCOSE BLOOD 91778251062 Active Tu Landeros MD Active TRUE METRIX AIR GLUCOSE METER W/DEVICE KIT Test blood glucose BID Dx: E11.9 BLOOD GLUCOSE MONITORING SUPPL 20244191687 Active Tu Landeros MD Active TRUETEST TEST INVITR STRP test blood sugar twice daily. DX 250.0 GLUCOSE BLOOD 65495537404 No Longer Active Mirna Stanley LPN Active TRUEDRAW LANCING DEVICE MISC test blood sugar twice daily dx: 250.00 LANCET DEVICES 59675419428 No Longer Active Mirna Stanley LPN Active ENALAPRIL MALEATE 20 MG TABS 2 po qd ENALAPRIL MALEATE 29666335032 Active Tu Landeros MD Active SUPER B COMPLEX/VITAMIN C TABS 1 qd B COMPLEX-C 02677917654 No Longer Active Tu Landeros MD Active ASPIRIN EC 81 MG ORAL TBEC 1 po qd ASPIRIN 01476484096 Active Tu Landeros MD Active GLUCOSAMINE 500 MG TABS 2 po qd GLUCOSAMINE Active Tu Landeros MD Active SIMVASTATIN 40 MG TABS 0.5 po qHS SIMVASTATIN 24521383256 Active Tu Landeros MD Active FISH OIL 1000 MG CAPS 1 po qd OMEGA-3 FATTY ACIDS 01581259552 Active Tu Landeros MD Active METFORMIN HCL 1000 MG TABS 1 po BID METFORMIN HCL 44772979401 Active Tu Landeros MD Active KLOR-CON 10 10 MEQ CR-TABS 2 po qd POTASSIUM CHLORIDE 58294532130 Active Tu Landeros MD Active FUROSEMIDE 40 MG TAB 1 po qd FUROSEMIDE 63922220629 Active Tu Landeros MD Active REQUIP 2 MG ORAL TABS 1 po qHS PRN Restless legs ROPINIROLE HCL 18643061079 Active Tu Landeros MD Active GABAPENTIN 100 MG CAPS 1 po BID GABAPENTIN 77873252073 Active Tu Landeros MD Active REQUIP 2 MG TABS Take one tablet at bedtime prn ROPINIROLE HCL 70109526910 No Longer Active Tu Landeros MD Active VENTOLIN HFA 108 (90 BASE) MCG/ACT AERS 1-2 puffs every 4 hours if needed for cough/congestion ALBUTEROL SULFATE 45416257291 No Longer Active Ambika King AMANDA Active ZITHROMAX 250 MG TAB 2 po today, then 1 po q days 2-5 AZITHROMYCIN 99770321106 No Longer Active Miranda Suresh APRN Active FLONASE 50 MCG/ACT SUSP 1 spray each nostril twice daily until bottle empty FLUTICASONE PROPIONATE 85719204318 No Longer Active Tu Landeros MD Active COLACE 100 MG CAP 1 po BID PRN Constipation DOCUSATE SODIUM 29214139234 Active Tu Landeros MD Active TRUERESULT BLOOD GLUCOSE W/DEVICE KIT test blood sugar twice daily dx 250.00 BLOOD GLUCOSE MONITORING SUPPL 46824324254 No Longer Active Tu Landeros MD Active TRUEDRAW LANCING DEVICE MISC Test twice a day dx 250.0 LANCET DEVICES 31105177150 No Longer Active Tu Landeros MD Active PREDNISONE 20 MG TAB 2 tablets once daily for 2 days, then 1 tablet once daily for 2 days PREDNISONE 88046279506 No Longer Active Tu Landeros MD Active DICLOFENAC SODIUM 50 MG TBEC 1 tablet by mouth three times a day as needed DICLOFENAC SODIUM 51420343551 No Longer Active Fab Morales DO Active EMBRACE BLOOD GLUCOSE TEST STRP test blood sugar twice daily DX 250.0 2014 GLUCOSE BLOOD 59729037501 No Longer Active Tu Landeros MD Active TRUETEST TEST STRP test blood sugar three times daily dx: 250.00 GLUCOSE BLOOD 27320583031 No Longer Active Suze VOGEL Active TRUERESULT BLOOD GLUCOSE W/DEVICE KIT use to test blood sugar tid dx: 250.00 BLOOD GLUCOSE MONITORING SUPPL 68894700751 No Longer Active Suze VOGEL Active ALIGN 4 MG CAPS 1 tid PROBIOTIC PRODUCT 03461339776 No Longer Active Shaun Sy MD Active CIPRO 500 MG TABS 1 bid x 14 days start 09-28-13 CIPROFLOXACIN HCL 05721508934 No Longer Active Shaun Sy MD Active TRAMADOL HCL 50 MG TABS 1-2 tablets every 6 hours as needed for pain TRAMADOL HCL 76163991865 Active Tu Landeros MD Active HYDROCODONE-ACETAMINOPHEN 5-325 MG TABS 1 tab by mouth every 6 hours as needed for pain HYDROCODONE-ACETAMINOPHEN 84171791444 No Longer Active Tu Landeros MD Active OMEPRAZOLE 20 MG CPDR 1 po q a.m. OMEPRAZOLE 54500636801 Active Lesli Kellogg APRN Active GABAPENTIN 100 MG CAPS 1 po bid GABAPENTIN 48273187830 No Longer Active Tu Landeros MD Active B-12 100 MCG TABS Take one by mouth daily CYANOCOBALAMIN 37759852972 No Longer Active Tu Landeros MD Active BACTRIM DS 800-160 MG TABS 1 bid x 14 day start 09-28-13 SULFAMETHOXAZOLE-TRIMETHOPRIM 44502824251 No Longer Active Tu Landeros MD Active CARVEDILOL 12.5 MG TABS 1 po BID CARVEDILOL 14423970615 Active Tu Landeros MD Active TRILIPIX 135 MG CPDR 1 q hs CHOLINE FENOFIBRATE 50952045187 Active Tu Landeros MD Active FENOFIBRATE 145 MG TABS 1 po qd FENOFIBRATE 96482452706 No Longer Active JASPREET Perez Active OMEPRAZOLE 20 MG TBEC 1 PO 30 MIN BEFORE 1ST MEAL OMEPRAZOLE 33691666703 No Longer Active JASPREET Perez Active SIMVASTATIN 40 MG TABS Take one by mouth daily SIMVASTATIN 41588299806 No Longer Active JASPREET Perez Active VENLAFAXINE HCL 75 MG TABS 1 po BID VENLAFAXINE HCL 01998050336 No Longer Active Gustavo JASPREET Green Active CIPRO 500 MG TAB 1 tablet by mouth twice daily CIPROFLOXACIN HCL 00683115613 No Longer Active Tu Landeros MD Active VENLAFAXINE HCL 37.5 MG TABS 1 po BID VENLAFAXINE HCL 46831865208 No Longer Active Suze Nicole RMA Active LAMISIL 250 MG TAB 1 po qd TERBINAFINE HCL 80421069444 No Longer Active Tu Landeros MD Active LORTAB 5 5-500 MG TABS 1/2 to 1 tablet by mouth every 4 hours as needed for pain HYDROCODONE-ACETAMINOPHEN 62006402945 No Longer Active Tu Landeros MD Active HYDROCODONE-ACETAMINOPHEN 5-500 MG TABS take one po Q 4-6 hours prn HYDROCODONE-ACETAMINOPHEN 52208523224 No Longer Active Tu Landeros MD Active BACTRIM DS 800-160 MG TABS 1 po BID x 7 days SULFAMETHOXAZOLE-TRIMETHOPRIM 65689457979 No Longer Active Tu Landeros MD Active VENLAFAXINE HCL 75 MG TABS 1 po BID VENLAFAXINE HCL 36160023051 No Longer Active Elvira Cervantes MD PhD Active TRAMADOL HCL 50 MG TABS 1 tablets every 6 hours as needed for pain TRAMADOL HCL 77975058261 No Longer Active Tu Landeros MD Active ACCU-CHEK FASTCLIX LANCETS MISC Use to check bloodsugar three times daily as needed LANCETS 50850353728 No Longer Active Tu Landeros MD Active ACCU-CHEK KEYONA PLUS STRP Use for testing bloodsugars three times daily as needed GLUCOSE BLOOD 77464683892 No Longer Active Tu Landeros MD Active ACCU-CHEK KEYONA PLUS W/DEVICE KIT Use for testing bloodsugars three times daily as needed BLOOD GLUCOSE MONITORING SUPPL 26554358644 No Longer Active Tu Landeros MD Active SPIRONOLACTONE 25 MG TAB 0.5 tablet by mouth daily SPIRONOLACTONE 08017272346 No Longer Active Tu Landeros MD Active ALPRAZOLAM 0.5 MG TABS 1 tab every 6hrs as needed ALPRAZOLAM 01961404131 No Longer Active Tu Landeros MD Active AUGMENTIN 875-125 MG TAB 1 tab by mouth twice daily with food AMOXICILLIN-POT CLAVULANATE 29236020964 No Longer Active Tu Landeros MD Active PREDNISONE 20 MG TAB 2 tabs daily for 3 days, 1 tab daily for 3 days, 1/2 tab daily for 2 days PREDNISONE 01137087806 No Longer Active Tu Landeros MD Active XANAX 0.5 MG TABS 1 tablet every 6 hrs prn ALPRAZOLAM 81971417447 No Longer Active Tu Landeros MD Active PREDNISONE 20 MG TAB 2 tabs daily for 3 days, 1 tab daily for 3 days, 1/2 tab daily for 2 days PREDNISONE 27727039837 No Longer Active Tu Landeros MD Active TRIAMCINOLONE ACETONIDE 0.1 % OINT Apply to affected areas TID for up to 2 weeks TRIAMCINOLONE ACETONIDE 37075870869 No Longer Active Tu Landeros MD Active LORTAB 5 5-500 MG TABS 1/2 to 1 tablet by mouth every 4 hours as needed for pain HYDROCODONE-ACETAMINOPHEN 63874098252 No Longer Active Tu Landeros MD Active MULTIVITAMINS TABS Take one by mouth daily MULTIPLE VITAMIN 03065129127 No Longer Active Tu Landeros MD Active MELATONIN 5 MG TABS Take one by mouth daily MELATONIN 19654116605 No Longer Active Tu Landeros MD Active SOMA 350 MG TAB 1 po q 6 hours prn spasm CARISOPRODOL 52907802445 No Longer Active Tu Landeros MD Active MECLIZINE HCL 25 MG CHEW TAB 1 four times a day as needed for dizziness 08/05 MECLIZINE HCL 17817099643 No Longer Active Fab Morales DO Active ANGEL BREEZE 2 TEST DISK test tid prn GLUCOSE BLOOD 16776383313 No Longer Active Negra Scott RN Active REGLAN 10 MG TAB 1 po TID PRN [place]ausea METOCLOPRAMIDE HCL 19881045242 No Longer Active Tu Landeros MD Active METFORMIN HCL 500 MG TABS 1 PO BID METFORMIN HCL 98206847531 No Longer Active Tu Landeros MD Active AMBIEN 10 MG TAB 1 tab by mouth at bedtime as needed for sleep ZOLPIDEM TARTRATE 38520988589 No Longer Active Tu Landeros MD Active FLUOXETINE HCL 40 MG CAPS 1 po q day FLUOXETINE HCL 92924756224 No Longer Active Mayra [place] Active TRILIPIX 135 MG CPDR 1 po qd CHOLINE FENOFIBRATE 82188686353 No Longer Active Tu Landeros MD Active AMBIEN 10 MG TAB 1 tab by mouth at bedtime as needed for sleep AMBIEN 10 MG TAB 480873 ZOLPIDEM TARTRATE Inactive METFORMIN HCL 500 MG TABS 1 PO BID METFORMIN HCL 500 MG TABS 008314 METFORMIN HCL Inactive REGLAN 10 MG TAB 1 po TID PRN [place] REGLAN 10 MG TAB 402076 METOCLOPRAMIDE HCL Inactive MECLIZINE HCL 25 MG CHEW TAB 1 four times a day as needed for dizziness 08/05 MECLIZINE HCL 25 MG CHEW TAB 989916 MECLIZINE HCL Inactive SOMA 350 MG TAB 1 po q 6 hours prn spasm SOMA 350 MG TAB 027164 CARISOPRODOL Inactive MELATONIN 5 MG TABS Take one by mouth daily MELATONIN 5 MG TABS 865876 MELATONIN Inactive MULTIVITAMINS TABS Take one by mouth daily MULTIVITAMINS TABS MULTIPLE VITAMIN Inactive LORTAB 5 5-500 MG TABS 1/2 to 1 tablet by mouth every 4 hours as needed for pain LORTAB 5 5-500 MG TABS HYDROCODONE- ACETAMINOPHEN Inactive XANAX 0.5 MG TABS 1 tablet every 6 hrs prn XANAX 0.5 MG TABS 664486 ALPRAZOLAM Inactive AUGMENTIN 875-125 MG TAB 1 tab by mouth twice daily with food AUGMENTIN 875-125 MG TAB 083076 AMOXICILLIN-POT CLAVULANATE Inactive ALPRAZOLAM 0.5 MG TABS 1 tab every 6hrs as needed ALPRAZOLAM 0.5 MG TABS 185261 ALPRAZOLAM Inactive SPIRONOLACTONE 25 MG TAB 0.5 tablet by mouth daily SPIRONOLACTONE 25 MG TAB 788140 SPIRONOLACTONE Inactive ACCU-CHEK KEYONA PLUS W/DEVICE KIT Use for testing bloodsugars three times daily as needed ACCU-CHEK KEYONA PLUS W/DEVICE KIT BLOOD GLUCOSE MONITORING SUPPL Inactive ACCU-CHEK KEYONA PLUS STRP Use for testing bloodsugars three times daily as needed ACCU-CHEK KEYONA PLUS STRP GLUCOSE BLOOD Inactive ACCU-CHEK FASTCLIX LANCETS MISC Use to check bloodsugar three times daily as needed ACCU-CHEK FASTCLIX LANCETS MISC 74673932269 LANCETS Inactive TRAMADOL HCL 50 MG TABS 1 tablets every 6 hours as needed for pain TRAMADOL HCL 50 MG TABS 423162 TRAMADOL HCL Inactive VENLAFAXINE HCL 75 MG TABS 1 po BID VENLAFAXINE HCL 75 MG TABS 426598 VENLAFAXINE HCL Inactive HYDROCODONE-ACETAMINOPHEN 5-500 MG TABS take one po Q 4-6 hours prn HYDROCODONE-ACETAMINOPHEN 5-500 MG TABS HYDROCODONE- ACETAMINOPHEN Inactive LORTAB 5 5-500 MG TABS 1/2 to 1 tablet by mouth every 4 hours as needed for pain LORTAB 5 5-500 MG TABS HYDROCODONE- ACETAMINOPHEN Inactive LAMISIL 250 MG TAB 1 po qd LAMISIL 250 MG TAB 611599 TERBINAFINE HCL Inactive VENLAFAXINE HCL 37.5 MG TABS 1 po BID VENLAFAXINE HCL 37.5 MG TABS 364100 VENLAFAXINE HCL Inactive CIPRO 500 MG TAB 1 tablet by mouth twice daily CIPRO 500 MG TAB 597641 CIPROFLOXACIN HCL Inactive VENLAFAXINE HCL 75 MG TABS 1 po BID VENLAFAXINE HCL 75 MG TABS 405742 VENLAFAXINE HCL Inactive SIMVASTATIN 40 MG TABS Take one by mouth daily SIMVASTATIN 40 MG TABS 895545 SIMVASTATIN Inactive OMEPRAZOLE 20 MG TBEC 1 PO 30 MIN BEFORE 1ST MEAL OMEPRAZOLE 20 MG TBEC 458001 OMEPRAZOLE Inactive FENOFIBRATE 145 MG TABS 1 po qd FENOFIBRATE 145 MG TABS 357159 FENOFIBRATE Inactive BACTRIM DS 800-160 MG TABS 1 bid x 14 day start 09-28-13 BACTRIM DS 800-160 MG TABS 078224 SULFAMETHOXAZOLE-TRIMETHOPRIM Inactive B-12 100 MCG TABS Take one by mouth daily B-12 100 MCG TABS CYANOCOBALAMIN Inactive GABAPENTIN 100 MG CAPS 1 po bid GABAPENTIN 100 MG CAPS 333834 GABAPENTIN Inactive HYDROCODONE-ACETAMINOPHEN 5-325 MG TABS 1 tab by mouth every 6 hours as needed for pain HYDROCODONE-ACETAMINOPHEN 5-325 MG TABS 641660 HYDROCODONE-ACETAMINOPHEN Inactive CIPRO 500 MG TABS 1 bid x 14 days start 09-28-13 CIPRO 500 MG TABS 807530 CIPROFLOXACIN HCL Inactive ALIGN 4 MG CAPS [...] as needed DICLOFENAC SODIUM 50 MG TBEC 899126 DICLOFENAC SODIUM Inactive PREDNISONE 20 MG TAB 2 tablets once daily for 2 days, then 1 tablet once daily for 2 days PREDNISONE 20 MG TAB 310376 PREDNISONE Inactive TRUEDRAW LANCING DEVICE MISC Test twice a day dx 250.0 TRUEDRAW LANCING DEVICE MISC LANCET DEVICES Inactive TRUERESULT BLOOD GLUCOSE W/DEVICE KIT test blood sugar twice daily dx 250.00 TRUERESULT BLOOD GLUCOSE W/DEVICE KIT BLOOD GLUCOSE MONITORING SUPPL Inactive FLONASE 50 MCG/ACT SUSP 1 spray each nostril twice daily until bottle empty FLONASE 50 MCG/ACT SUSP 1773093 FLUTICASONE PROPIONATE Inactive VENTOLIN HFA 108 (90 BASE) MCG/ACT AERS 1-2 puffs every 4 hours if needed for cough/congestion VENTOLIN HFA 108 (90 BASE) MCG/ACT AERS ALBUTEROL SULFATE Inactive REQUIP 2 MG TABS Take one tablet at bedtime prn REQUIP 2 MG TABS 968020 ROPINIROLE HCL Inactive SUPER B COMPLEX/VITAMIN C TABS 1 qd SUPER B COMPLEX/ VITAMIN C TABS 29829302246 B COMPLEX-C Inactive TRUEDRAW LANCING DEVICE MISC test blood sugar twice daily dx: 250.00 TRUEDRAW LANCING DEVICE MISC LANCET DEVICES Inactive TRUETEST TEST INVITR STRP test blood sugar twice daily. DX 250.0 TRUETEST TEST INVITR STRP GLUCOSE BLOOD Inactive TRIAMCINOLONE ACETONIDE 0.1 % OINT Apply to affected areas TID for up to 2 weeks TRIAMCINOLONE ACETONIDE 0.1 % OINT 8953051 TRIAMCINOLONE ACETONIDE Inactive PREDNISONE 20 MG TAB 2 tabs daily for 3 days, 1 tab daily for 3 days, 1/2 tab daily for 2 days PREDNISONE 20 MG TAB 460323 PREDNISONE Inactive PREDNISONE 20 MG TAB 2 tabs daily for 3 days, 1 tab daily for 3 days, 1/2 tab daily for 2 days PREDNISONE 20 MG TAB 216259 PREDNISONE Inactive BACTRIM DS 800-160 MG TABS 1 po BID x 7 days BACTRIM DS 800-160 MG TABS 834506 SULFAMETHOXAZOLE-TRIMETHOPRIM Inactive ZITHROMAX 250 MG TAB 2 po today, then 1 po q days 2-5 ZITHROMAX 250 MG TAB 1024743 AZITHROMYCIN Inactive Advance Directives Directive Description Start Date DISCUSSED WITH PATIENT -- NO DECISION MADE Immunizations Vaccine Administration Date Value Standard Description Seasonal influenza vaccine, injectable, containing preservative, for > 3 years old (Afluria, FluLaval, Fluzone, Fluvirin, Fluarix, Agriflu(>=18 yo)) Fluzone (>3 yrs.) [[id number]] Influenza, seasonal, injectable influenza immunization (Flu Vax) has been administered 02/22/2012 influenza virus vaccine, unspecified formulation Seasonal influenza vaccine, injectable, containing preservative, for > 3 years old (Afluria, FluLaval, Fluzone, Fluvirin, Fluarix, Agriflu(>=18 yo)) Fluzone (>3 yrs.) [[id number]] Influenza, seasonal, injectable Vital Signs Date Name [...] Magnesium - Chemistry sodium, serum 143 mmol/L 119-650 7177/01/10 carbon dioxide, venous blood 28.0 mmol/L 21.0-32.0 potassium, serum 4.5 mmol/L 3.5-5.2 chloride, serum 104 mmol/L 98-107 blood glucose 158 mg/dL 65-110 urea nitrogen, blood 23 mg/dL 7-18 creatinine, serum 1.06 mg/dL 0.55-1.30 alanine aminotransferase (SGPT), serum 42 U/L 12-78 aspartate aminotransferase (SGOT), serum 32 U/L 15-37 calcium, serum 9.3 mg/dL 8.5-10.1 bilirubin, serum, total 0.20 mg/dL 0.00-1.00 cholesterol, serum 177 mg/dL 833-787 9605/01/10 triglyceride, serum, fasting 320 mg/dL 30-200 HDL cholesterol, serum 46 mg/dL 32-96 LDL cholesterol, serum 67 mg/dL 0-130 Lab Report: COMPREHENSIVE METABOLIC PANEL, LIPID PANEL, HEMOGLOBIN A1c - Chemistry cholesterol, serum 135 mg/dL 953-129 7748/05/17 HDL cholesterol, serum 41 mg/dL > OR=46 triglyceride, serum, fasting 206 mg/dL <150 LDL cholesterol, serum 53 MG/DL (CALC) mg/dL <130 cholesterol/HDL ratio, serum 3.3 (calc) < OR=5.0 Lab Report: HGBA1C - Chemistry hemoglobin A1C, blood, as % of total hemoglobin 7.4 % 4.3-6.0 sodium, serum 140 mmol/L 841-385 2572/09/07 potassium, serum 4.3 mmol/L 3.5-5.2 chloride, serum [...] <30 Encounters Code Encounter Date Provider Facility CPT-03813 Level 4 Est. Patient 14:29:21 CDT Tu Landeros MD [facility] CPT-60217 Level 4 Est. Patient 09:08:17 [facility] Tu Landeros MD [facility] CPT-59095 Level 4 Est. Patient 14:40:19 CDT Tu Landeros MD [facility] CPT-52916 Level 4 Est. Patient 14:06:04 [facility] [place] Tu Landeros MD [facility] CPT-94830 Level 3 Est. Patient 14:05:18 [facility] [place] Tu Landeros MD [facility] CPT-48583 Level 3 Est. Patient 10:06:54 [facility] Miranda Suresh APRN [facility] CPT-35445 Level 4 Est. Patient 13:50:18 [place] [place] Tu Landeros MD [facility] CPT-92350 Level 3 Est. Patient 10:30:04 CDT Tu Landeros MD [facility] CPT-99666 Level 4 Est. Patient 11:03:38 CDT Tu Landeros MD [facility] CPT-52514 Level 3 Est. Patient 10:20:44 CDT Fab Morales DO [facility] CPT-17122 Level 4 Est. Patient 14:38:57 CDT Tu Landeros MD [facility] CPT-75092 Level 4 Est. Patient 14:27:39 [place] [place] Tu Landeros MD [facility] CPT-61091 Level 4 Est. Patient 09:45:25 CDT Tu Landeros MD [facility] CPT-26700 Level 4 Est. Patient 09:05:20 [place] [place] Tu Landeros MD [facility] CPT-48935 Level 4 Est. Patient 14:09:06 CDT Tu Landeros MD [facility] CPT-18177 Level 3 Est. Patient 13:36:54 CDT Tu Landeros MD [facility] CPT-08350 Level 3 Est. Patient 08:59:14 CDT Tu Landeros MD [facility] CPT-88858 Level 3 Est. Patient 13:48:35 CDT Fab Morales DO [facility] CPT-67561 Level 4 Est. Patient 10:05:48 CDT Tu Landeros MD [facility] CPT-92040 Level 3 Est. Patient 13:38:42 CDT Marek BANKS [facility] CPT-05774 Level 5 Est. Patient 08:08:39 CDT Maxjanelle Kellie FRANCIS [facility] CPT-66982 Level 4 Est. Patient 14:23:38 CDT Tu Landeros MD [facility] CPT-74742 Level 3 Est. Patient 11:44:04 CDT Tu Landeros MD [facility] CPT-02240 Level 3 Est. Patient 11:03:20 [place] [place] Tu Landeros MD [facility] CPT-23698 Level 3 Est. Patient 11:03:14 [place] [place] Tu Landeros MD [facility] CPT-01235 Level 3 Est. Patient 12:42:49 CDT Tu Landeros MD [facility] CPT-57903 Level 3 Est. Patient 11:52:06 CDT Tu Landeros MD [facility] CPT-85346 Level 3 Est. Patient 13:58:11 CDT Tu Landeros MD [facility] CPT-14238 Level 3 Est. Patient 17:50:07 CDT Fab Morales DO [facility] CPT-02453 Level 3 Est. Patient 12:06:29 CDT Elvira Cervantes MD, PhD [facility] CPT-73861 Level 3 Est. Patient 15:50:32 CDT Tu Landeros MD [facility] CPT-40892 Level 4 Est. Patient 16:08:29 CDT Tu Landeros MD [facility] CPT-50107 Level 3 Est. Patient 16:04:19 CDT Tu Landeros MD [facility] CPT-77956 Level 3 Est. Patient 11:22:30 [place] [place] Tu Landeros MD [facility] CPT-38350 Level 4 Est. Patient 16:24:02 [place] Tu Landeros MD [facility] CPT-34647 Level 3 Est. Patient 17:21:23 [place] Tu Landeros MD [facility] Procedures Code Procedure Name Date Entry Date Standard Description CPT-G0009 Administration of Pneumococcal Vaccine 15:08:26 CDT CPT-84254 Prevnar 13 Intramuscular Suspension 15:08:26 CDT 10/08 CPT-G0439 [facility] Annual Wellness Exam 14:29:22 CDT CPT-21079 Venipuncture Draw Fee 13:15:35 CDT CPT-78031 Magnesium - LAB USE ONLY 11:14:20 [facility] [employer] CPT-20284 Lipid - LAB USE ONLY 11:14:20 [facility] CPT-93898 HGBA1C - LAB USE ONLY 11:14:20 [facility] [employer] CPT-33655 CMP - LAB USE ONLY 11:14:19 [place] [employer] CPT-57244 CBC - LAB USE ONLY 11:14:19 [facility] CPT-50964 Venipuncture Draw Fee 11:14:18 [facility] CPT-93687 First Vx - Ix admin for Medicare patients 16:46:52 CDT CPT-08352 Fluzone Preservative Free Intramuscular Suspension 16:46 :51 CDT CPT-71673 CBC - LAB USE ONLY 17:14:46 CDT CPT-44891 HGBA1C - LAB USE ONLY 17:14:46 CDT CPT-45008 Venipuncture Draw Fee 17:14:46 CDT CPT-G0438 Initial Annual Wellness Exam 14:13:04 CDT CPT-59480 Breathing Tx 10:06:54 [employer] CPT-73154 Postop F/U Visit 10:02:45 CDT CPT-LR Lesion Removal 09:02:56 CDT CPT-JTINJ Asp/Joint Injection 15:51:27 [facility] [employer] CPT-OV Office Visit 15:52:02 [facility] [employer] CPT-OV Office Visit 15:45:11 CDT CPT-000 Give Zostavax 14:09:06 CDT CPT-63641 Administration single or combination vaccine inc oral 15 :19:04 CDT CPT-59309 Zoster Vaccine (Zostavax) 15:19:04 CDT CPT-48281 Administration single or combination vaccine inc oral 20 :51:03 CDT CPT-60573 Influenza split virus > age 3 20:51:03 CDT CPT-55939 No Charge Offi Visit 14:52:03 CDT CPT-OV Office Visit 14:57:43 CDT CPT-OV Office Visit 15:22:32 CDT CPT-46685 Administration single or combination vaccine inc oral 11 :33:15 CDT CPT-06184 Influenza split virus > age 3 11:33:15 CDT
--- OUTSIDE RECORDS SUMMARY | 2018-04-25 16:10 | XMS REPORT | Clinical Summary ---
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 Acute upper respiratory infections of unspecified site POSTMENOPAUSAL BLEEDING ICD-627.1 Inactive Elvira Cervantes MD PhD HEALTH SCREENING ICD-V70.0 Inactive Elvira Cervantes MD PhD 2011 INSOMNIA, PERSISTENT ICD-307.42 Inactive Tu Landeros MD GASTROENTERITIS ICD-558.9 Inactive uT Landeros MD DIZZINESS ICD-780.4 Inactive Tu Landeros [...] each nostril q day 07/15 MOMETASONE FUROATE 30329367738 Active Lesli Kellogg APRN Active GUAIFENESIN ER 600 MG ORAL TABLET EXTENDED RELEASE 12 HOUR 1 twice a day as needed for congestion GUAIFENESIN 48011777237 Active Lesli Kellogg APRN Active MAGNESIUM OXIDE 400 MG ORAL TABLET 1 po BID MAGNESIUM OXIDE 40902425493 Active Tu Landeros MD Active SIMVASTATIN 20 MG ORAL TABLET 0.5 po qHS SIMVASTATIN 99581897409 Active Tu Landeros MD Active DICLOFENAC SODIUM 75 MG ORAL TABLET DELAYED RELEASE 1 po BID PRN Pain DICLOFENAC SODIUM 41607272751 No Longer Active Tu Landeros MD Active GABAPENTIN 100 MG ORAL CAPSULE 1 po TID GABAPENTIN 80608699532 Active Tu Landeros MD Active DICLOFENAC SODIUM 50 MG ORAL TABLET DELAYED RELEASE 1 po BID PRN Pain DICLOFENAC SODIUM 53136558981 No Longer Active Tu Landeros MD Active CYCLOBENZAPRINE HCL 10 MG ORAL TABLET 1 po TID PRN Muscle Spasm CYCLOBENZAPRINE HCL 15692753832 No Longer Active Tu Landeros MD Active INVOKANA 100 MG ORAL TABLET 1 po qd CANAGLIFLOZIN 04528717351 Active Tu Landeros MD Active GLIPIZIDE 5 MG ORAL TABLET 1 po qd GLIPIZIDE 36227973357 No Longer Active Tu Landeros MD Active VENLAFAXINE HCL 75 MG ORAL TABLET 1 po BID VENLAFAXINE HCL 61764331284 Active Tu Landeros MD Active GLIMEPIRIDE 1 MG ORAL TABLET 1 po qd GLIMEPIRIDE 13493047101 No Longer Active Tu Landeros MD Active TRUE METRIX BLOOD GLUCOSE TEST IN VITRO STRIP Test blood sugar BID Dx: E11.9 GLUCOSE BLOOD 59713857929 Active Tu Landeros MD Active TRUE METRIX AIR GLUCOSE METER w/Device KIT Test blood glucose BID Dx: E11.9 BLOOD GLUCOSE MONITORING SUPPL 48775402784 Active Tu Lanedros MD Active TRUETEST TEST IN VITRO STRIP test blood sugar twice daily. DX 250.0 GLUCOSE BLOOD 85901762427 No Longer Active Mirna Stanley LPN Active TRUEDRAW LANCING DEVICE test blood sugar twice daily dx: 250.00 LANCET DEVICES 74227301999 No Longer Active Mirna Stanley LPN Active ENALAPRIL MALEATE 20 MG ORAL TABLET 2 po qd ENALAPRIL MALEATE 32377782061 Active Tu Landeros MD Active SUPER B COMPLEX/VITAMIN C ORAL TABLET 1 qd B COMPLEX- C 43262029355 No Longer Active Tu Landeros MD Active ASPIRIN EC 81 MG ORAL TABLET DELAYED RELEASE 1 po qd ASPIRIN 85168355836 Active Tu Landeros MD Active GLUCOSAMINE 500 MG TABS 2 po qd GLUCOSAMINE Active Tu Landeros MD Active FISH OIL 1000 MG ORAL CAPSULE 1 po qd OMEGA-3 FATTY ACIDS 38333849296 Active Tu Landeros MD Active METFORMIN HCL 1000 MG ORAL TABLET 1 po BID METFORMIN HCL 24299766900 Active Tu Landeros MD Active KLOR-CON 10 10 MEQ ORAL TABLET EXTENDED RELEASE 2 po qd POTASSIUM CHLORIDE 81565291188 Active Tu Landeros MD Active FUROSEMIDE 40 MG ORAL TABLET 1 po qd FUROSEMIDE 50922889699 Active Tu Landeros MD Active REQUIP 2 MG ORAL TABLET 1 po qHS PRN Restless legs ROPINIROLE HCL 98048720194 Active Tu Landeros MD Active REQUIP 2 MG ORAL TABLET Take one tablet at bedtime prn ROPINIROLE HCL 17629406438 No Longer Active Tu Landeros MD Active VENTOLIN HFA 108 (90 Base) MCG/ACT INHALATION AEROSOL SOLUTION 1-2 puffs every 4 hours if needed for cough/congestion ALBUTEROL SULFATE 87696115850 No Longer Active Ambika Aden APRN Active ZITHROMAX 250 MG ORAL TABLET 2 po today, then 1 po q days 2-5 AZITHROMYCIN 86504728347 No Longer Active Miranda Farah APRN Active FLONASE 50 MCG/ACT NASAL SUSPENSION 1 spray each nostril twice daily until bottle empty FLUTICASONE PROPIONATE 07424846639 No Longer Active Tu Landeros MD Active COLACE 100 MG ORAL CAPSULE 1 po BID PRN Constipation DOCUSATE SODIUM 70236193581 Active Tu Landeros MD Active TRUERESULT BLOOD GLUCOSE w/Device KIT test blood sugar twice daily dx 250.00 BLOOD GLUCOSE MONITORING SUPPL 47012097386 No Longer Active Tu Landeros MD Active TRUEDRAW LANCING DEVICE Test twice a day dx 250.0 LANCET DEVICES 07685247600 No Longer Active Tu Landeros MD Active PREDNISONE 20 MG ORAL TABLET 2 tablets once daily for 2 days, then 1 tablet once daily for 2 days PREDNISONE 52580574807 No Longer Active Tu Landeros MD Active DICLOFENAC SODIUM 50 MG ORAL TABLET DELAYED RELEASE 1 tablet by mouth three times a day as needed DICLOFENAC SODIUM 65914045387 No Longer Active Fab Morales DO Active EMBRACE BLOOD GLUCOSE TEST IN VITRO STRIP test blood sugar twice daily DX 250.0 GLUCOSE BLOOD 53633657498 No Longer Active Tu Landeros MD Active TRUETEST TEST IN VITRO STRIP test blood sugar three times daily dx: 250.00 GLUCOSE BLOOD 80014850461 No Longer Active Suze Nicole NURYSA Active TRUERESULT BLOOD GLUCOSE w/Device KIT use to test blood sugar tid dx: 250.00 BLOOD GLUCOSE MONITORING SUPPL 36642042503 No Longer Active Suze Nicole NURYSA Active ALIGN 4 MG ORAL CAPSULE 1 tid PROBIOTIC PRODUCT 44756378424 No Longer Active Shaun Sy MD Active CIPRO 500 MG ORAL TABLET 1 bid x 14 days start 09-28-13 CIPROFLOXACIN HCL 62905721885 No Longer Active Shaun Sy MD Active TRAMADOL HCL 50 MG ORAL TABLET 1-2 tablets every 6 hours as needed for pain TRAMADOL HCL 78752481725 Active Tu Landeros MD Active HYDROCODONE-ACETAMINOPHEN 5-325 MG ORAL TABLET 1 tab by mouth every 6 hours as needed for pain HYDROCODONE-ACETAMINOPHEN 78508073396 No Longer Active Tu Landeros MD Active OMEPRAZOLE 20 MG ORAL CAPSULE DELAYED RELEASE 1 po q a.m. OMEPRAZOLE 05132008974 Active Fab Morales DO Active GABAPENTIN 100 MG ORAL CAPSULE 1 po bid GABAPENTIN 72266261846 No Longer Active Tu Landeros MD Active B-12 100 MCG ORAL TABLET Take one by mouth daily CYANOCOBALAMIN 03511948641 No Longer Active Tu Landeros MD Active BACTRIM DS 800-160 MG ORAL TABLET 1 bid x 14 day start 09-28-13 SULFAMETHOXAZOLE-TRIMETHOPRIM 07091624201 No Longer Active Tu Landeros MD Active CARVEDILOL 12.5 MG ORAL TABLET 1 po BID CARVEDILOL 83305998461 Active Tu Landeros MD Active TRILIPIX 135 MG ORAL CAPSULE DELAYED RELEASE 1 q hs CHOLINE FENOFIBRATE 10414137376 Active Tu Landeros MD Active FENOFIBRATE 145 MG ORAL TABLET 1 po qd FENOFIBRATE 35959304631 No Longer Active JASPREET Perez Active OMEPRAZOLE 20 MG ORAL TABLET DELAYED RELEASE 1 PO 30 MIN BEFORE 1ST MEAL 2010 OMEPRAZOLE 44853996451 No Longer Active JASPREET Perez Active SIMVASTATIN 40 MG ORAL TABLET Take one by mouth daily SIMVASTATIN 09325216286 No Longer Active JASPREET Perez Active VENLAFAXINE HCL 75 MG ORAL TABLET 1 po BID VENLAFAXINE HCL 06065339823 No Longer Active JASPREET Perez Active CIPRO 500 MG ORAL TABLET 1 tablet by mouth twice daily CIPROFLOXACIN HCL 07533739226 No Longer Active Tu Landeros MD Active VENLAFAXINE HCL 37.5 MG ORAL TABLET 1 po BID VENLAFAXINE HCL 53602186585 No Longer Active Suzebianca Nicole RMA Active LAMISIL 250 MG ORAL TABLET 1 po qd TERBINAFINE HCL 37750467229 No Longer Active Tu Landeros MD Active LORTAB 5-500 MG ORAL TABLET 1/2 to 1 tablet by mouth every 4 hours as needed for pain HYDROCODONE-ACETAMINOPHEN 75634600254 No Longer Active Tu Landeros MD Active HYDROCODONE-ACETAMINOPHEN 5-500 MG ORAL TABLET take one po Q 4-6 hours prn HYDROCODONE-ACETAMINOPHEN 70686901126 No Longer Active Tu Landeros MD Active BACTRIM DS 800-160 MG ORAL TABLET 1 po BID x 7 days SULFAMETHOXAZOLE-TRIMETHOPRIM 49083997050 No Longer Active Tu Landeros MD Active VENLAFAXINE HCL 75 MG ORAL TABLET 1 po BID VENLAFAXINE HCL 20134598545 No Longer Active Elvira Cervantes MD PhD Active TRAMADOL HCL 50 MG ORAL TABLET 1 tablets every 6 hours as needed for pain TRAMADOL HCL 22108084071 No Longer Active Tu Landeros MD Active ACCU-CHEK FASTCLIX LANCETS Use to check bloodsugar three times daily as needed LANCETS 95283378424 No Longer Active Tu Landeros MD Active ACCU-CHEDawson KEYONA PLUS IN VITRO STRIP Use for testing bloodsugars three times daily as needed GLUCOSE BLOOD 63883050824 No Longer Active Tu Landeros MD Active ACCU-CHEK KEYONA PLUS w/Device KIT Use for testing bloodsugars three times daily as needed BLOOD GLUCOSE MONITORING SUPPL 74577596273 No Longer Active Tu Landeros MD Active SPIRONOLACTONE 25 MG ORAL TABLET 0.5 tablet by mouth daily 09/09 SPIRONOLACTONE 52449754517 No Longer Active Tu Landeros MD Active ALPRAZOLAM 0.5 MG ORAL TABLET 1 tab every 6hrs as needed ALPRAZOLAM 78018179891 No Longer Active Tu Landeros MD Active AUGMENTIN 875-125 MG ORAL TABLET 1 tab by mouth twice daily with food AMOXICILLIN-POT CLAVULANATE 97882695774 No Longer Active Tu Landeros MD Active PREDNISONE 20 MG ORAL TABLET 2 tabs daily for 3 days, 1 tab daily for 3 days, 1/2 tab daily for 2 days PREDNISONE 97066502951 No Longer Active Tu Landeros MD Active XANAX 0.5 MG ORAL TABLET 1 tablet every 6 hrs prn ALPRAZOLAM 22826713150 No Longer Active Tu Landeros MD Active PREDNISONE 20 MG ORAL TABLET 2 tabs daily for 3 days, 1 tab daily for 3 days, 1/2 tab daily for 2 days PREDNISONE 46328595288 No Longer Active Tu Landeros MD Active TRIAMCINOLONE ACETONIDE 0.1 % EXTERNAL OINTMENT Apply to affected areas TID for up to 2 weeks TRIAMCINOLONE ACETONIDE 84449346422 No Longer Active Tu Landeros MD Active LORTAB 5-500 MG ORAL TABLET 1/2 to 1 tablet by mouth every 4 hours as needed for pain HYDROCODONE-ACETAMINOPHEN 18458006661 No Longer Active Tu Landeros MD Active MULTIVITAMINS TABS Take one by mouth daily MULTIPLE VITAMIN 67081675811 No Longer Active Tu Landeros MD Active MELATONIN 5 MG ORAL TABLET Take one by mouth daily MELATONIN 60472799685 No Longer Active Tu Landeros MD Active SOMA 350 MG ORAL TABLET 1 po q 6 hours prn spasm CARISOPRODOL 35634688078 No Longer Active Tu Landeros MD Active MECLIZINE HCL 25 MG ORAL TABLET CHEWABLE 1 four times a day as needed for dizziness MECLIZINE HCL 91318853588 No Longer Active Fab Morales DO Active ANGEL BREEZE 2 TEST IN VITRO DISK test tid prn GLUCOSE BLOOD 73216943571 No Longer Active Negra Scott RN Active REGLAN 10 MG ORAL TABLET 1 po TID PRN Nausea METOCLOPRAMIDE HCL 53527106405 No Longer Active Tu Landeros MD Active METFORMIN HCL 500 MG ORAL TABLET 1 PO BID METFORMIN HCL 41255368153 No Longer Active Tu Landeros MD Active AMBIEN 10 MG ORAL TABLET 1 tab by mouth at bedtime as needed for sleep 06/10 ZOLPIDEM TARTRATE 29207008394 No Longer Active Tu Landeros MD Active FLUOXETINE HCL 40 MG ORAL CAPSULE 1 po q day FLUOXETINE HCL 54768840189 No Longer Active Mayra [place] Active TRILIPIX 135 MG ORAL CAPSULE DELAYED RELEASE 1 po qd CHOLINE FENOFIBRATE 15391534619 No Longer Active Tu Landeros MD Active AMBIEN 10 MG ORAL TABLET 1 tab by mouth at bedtime as needed for sleep 06/10 AMBIEN 10 MG ORAL TABLET 782829 ZOLPIDEM TARTRATE Inactive METFORMIN HCL 500 MG ORAL TABLET 1 PO BID METFORMIN HCL 500 MG ORAL TABLET 435480 METFORMIN HCL Inactive REGLAN 10 MG ORAL TABLET 1 po TID PRN Nausea REGLAN 10 MG ORAL TABLET 327055 METOCLOPRAMIDE HCL Inactive MECLIZINE HCL 25 MG ORAL TABLET CHEWABLE 1 four times a day as needed for dizziness MECLIZINE HCL 25 MG ORAL TABLET CHEWABLE 101130 MECLIZINE HCL Inactive SOMA 350 MG ORAL TABLET 1 po q 6 hours prn spasm SOMA 350 MG ORAL TABLET 692221 CARISOPRODOL Inactive MELATONIN 5 MG ORAL TABLET Take one by mouth daily MELATONIN 5 MG ORAL TABLET 453399 MELATONIN Inactive MULTIVITAMINS TABS Take one by mouth daily MULTIVITAMINS TABS MULTIPLE VITAMIN Inactive LORTAB 5-500 MG ORAL TABLET 1/2 to 1 tablet by mouth every 4 hours as needed for pain LORTAB 5-500 MG ORAL TABLET 202530 HYDROCODONE-ACETAMINOPHEN Inactive XANAX 0.5 MG ORAL TABLET 1 tablet every 6 hrs prn XANAX 0.5 MG ORAL TABLET 436841 ALPRAZOLAM Inactive AUGMENTIN 875-125 MG ORAL TABLET 1 tab by mouth twice daily with food AUGMENTIN 875-125 MG ORAL TABLET 855940 AMOXICILLIN-POT CLAVULANATE Inactive ALPRAZOLAM 0.5 MG ORAL TABLET 1 tab every 6hrs as needed ALPRAZOLAM 0.5 MG ORAL TABLET 962522 ALPRAZOLAM Inactive SPIRONOLACTONE 25 MG ORAL TABLET 0.5 tablet by mouth daily 09/09 SPIRONOLACTONE 25 MG ORAL TABLET 427340 SPIRONOLACTONE Inactive ACCU-CHEK KEYONA PLUS w/Device KIT [...] times daily as needed ACCU-CHEK FASTCLIX LANCETS 66124691315 LANCETS Inactive TRAMADOL HCL 50 MG ORAL TABLET 1 tablets every 6 hours as needed for pain TRAMADOL HCL 50 MG ORAL TABLET 162437 TRAMADOL HCL Inactive VENLAFAXINE HCL 75 MG ORAL TABLET 1 po BID VENLAFAXINE HCL 75 MG ORAL TABLET 014142 VENLAFAXINE HCL Inactive HYDROCODONE-ACETAMINOPHEN 5-500 MG ORAL TABLET take one po Q 4-6 hours prn HYDROCODONE-ACETAMINOPHEN 5-500 MG ORAL TABLET 773677 HYDROCODONE-ACETAMINOPHEN Inactive LORTAB 5-500 MG ORAL TABLET 1/2 to 1 tablet by mouth every 4 hours as needed for pain LORTAB 5-500 MG ORAL TABLET 962843 HYDROCODONE-ACETAMINOPHEN Inactive LAMISIL 250 MG ORAL TABLET 1 po qd LAMISIL 250 MG ORAL TABLET 741590 TERBINAFINE HCL Inactive VENLAFAXINE HCL 37.5 MG ORAL TABLET 1 po BID VENLAFAXINE HCL 37.5 MG ORAL TABLET 400812 VENLAFAXINE HCL Inactive CIPRO 500 MG ORAL TABLET 1 tablet by mouth twice daily CIPRO 500 MG ORAL TABLET 794143 CIPROFLOXACIN HCL Inactive VENLAFAXINE HCL 75 MG ORAL TABLET 1 po BID VENLAFAXINE HCL 75 MG ORAL TABLET 975270 VENLAFAXINE HCL Inactive SIMVASTATIN 40 MG ORAL TABLET Take one by mouth daily SIMVASTATIN 40 MG ORAL TABLET 196281 SIMVASTATIN Inactive OMEPRAZOLE 20 MG ORAL TABLET DELAYED RELEASE 1 PO 30 MIN BEFORE 1ST MEAL 2010 OMEPRAZOLE 20 MG ORAL TABLET DELAYED RELEASE 091323 OMEPRAZOLE Inactive FENOFIBRATE 145 MG ORAL TABLET 1 po qd FENOFIBRATE 145 MG ORAL TABLET 236667 FENOFIBRATE Inactive BACTRIM DS 800-160 MG ORAL TABLET 1 bid x 14 day start 09-28-13 BACTRIM DS 800-160 MG ORAL TABLET 148799 SULFAMETHOXAZOLE- TRIMETHOPRIM Inactive B-12 100 MCG ORAL TABLET Take one by mouth daily B-12 100 MCG ORAL TABLET CYANOCOBALAMIN Inactive GABAPENTIN 100 MG ORAL CAPSULE 1 po bid GABAPENTIN 100 MG ORAL CAPSULE 004650 GABAPENTIN Inactive HYDROCODONE-ACETAMINOPHEN 5-325 MG ORAL TABLET 1 tab by mouth every 6 hours as needed for pain HYDROCODONE-ACETAMINOPHEN 5-325 MG ORAL TABLET 023786 HYDROCODONE-ACETAMINOPHEN Inactive CIPRO 500 MG ORAL TABLET 1 bid x 14 days start 09-28-13 CIPRO 500 MG ORAL TABLET 870282 CIPROFLOXACIN HCL Inactive ALIGN 4 MG ORAL [...] SODIUM 50 MG ORAL TABLET DELAYED RELEASE 264818 DICLOFENAC SODIUM Inactive PREDNISONE 20 MG ORAL TABLET 2 tablets once daily for 2 days, then 1 tablet once daily for 2 days PREDNISONE 20 MG ORAL TABLET 445065 PREDNISONE Inactive TRUEDRAW LANCING DEVICE Test twice a day dx 250.0 TRUEDRAW LANCING DEVICE LANCET DEVICES Inactive TRUERESULT BLOOD GLUCOSE w/Device KIT test blood sugar twice daily dx 250.00 TRUERESULT BLOOD GLUCOSE w/Device KIT BLOOD GLUCOSE MONITORING SUPPL Inactive FLONASE 50 MCG/ACT NASAL SUSPENSION 1 spray each nostril twice daily until bottle empty FLONASE 50 MCG/ACT NASAL SUSPENSION 6215507 FLUTICASONE PROPIONATE Inactive VENTOLIN HFA 108 (90 Base) MCG/ACT INHALATION AEROSOL SOLUTION 1-2 puffs every 4 hours if needed for cough/congestion VENTOLIN HFA 108 (90 Base) MCG/ACT INHALATION AEROSOL SOLUTION ALBUTEROL SULFATE Inactive REQUIP 2 MG ORAL TABLET Take one tablet at bedtime prn REQUIP 2 MG ORAL TABLET 754232 ROPINIROLE HCL Inactive SUPER B COMPLEX/VITAMIN C ORAL TABLET 1 qd SUPER B COMPLEX/VITAMIN C ORAL TABLET 62431669192 B COMPLEX-C Inactive TRUEDRAW LANCING DEVICE test blood sugar twice daily dx: 250.00 TRUEDRAW LANCING DEVICE LANCET DEVICES Inactive TRUETEST TEST IN VITRO STRIP test blood sugar twice daily. DX 250.0 TRUETEST TEST IN VITRO STRIP GLUCOSE BLOOD Inactive CYCLOBENZAPRINE HCL 10 MG ORAL TABLET 1 po TID PRN Muscle Spasm CYCLOBENZAPRINE HCL 10 MG ORAL TABLET 548996 CYCLOBENZAPRINE HCL Inactive DICLOFENAC SODIUM 50 MG ORAL TABLET DELAYED RELEASE 1 po BID PRN Pain DICLOFENAC SODIUM 50 MG ORAL TABLET DELAYED RELEASE 984993 DICLOFENAC SODIUM Inactive DICLOFENAC SODIUM 75 MG ORAL TABLET DELAYED RELEASE 1 po BID PRN Pain DICLOFENAC SODIUM 75 MG ORAL TABLET DELAYED RELEASE 862006 DICLOFENAC SODIUM Inactive TRIAMCINOLONE ACETONIDE 0.1 % EXTERNAL OINTMENT Apply to affected areas TID for up to 2 weeks TRIAMCINOLONE ACETONIDE 0.1 % EXTERNAL OINTMENT 6245769 TRIAMCINOLONE ACETONIDE Inactive PREDNISONE 20 MG ORAL TABLET 2 tabs daily for 3 days, 1 tab daily for 3 days, 1/2 tab daily for 2 days PREDNISONE 20 MG ORAL TABLET 418820 PREDNISONE Inactive PREDNISONE 20 MG ORAL TABLET 2 tabs daily for 3 days, 1 tab daily for 3 days, 1/2 tab daily for 2 days PREDNISONE 20 MG ORAL TABLET 394986 PREDNISONE Inactive BACTRIM DS 800-160 MG ORAL TABLET 1 po BID x 7 days BACTRIM DS 800-160 MG ORAL TABLET 747991 SULFAMETHOXAZOLE-TRIMETHOPRIM Inactive ZITHROMAX 250 MG ORAL TABLET 2 po today, then 1 po q days 2-5 ZITHROMAX 250 MG ORAL TABLET 043272 AZITHROMYCIN Inactive Advance Directives Directive Description Start Date DISCUSSED WITH PATIENT -- NO DECISION MADE Immunizations Vaccine Administration Date Value Standard Description Seasonal influenza vaccine, injectable, containing preservative, for > 3 years old (Afluria, FluLaval, Fluzone, Fluvirin, Fluarix, Agriflu(>=18 yo)) Fluzone (>3 yrs.) [[id number]] Influenza, seasonal, injectable influenza immunization (Flu Vax) has been administered 02/22/2012 influenza virus vaccine, unspecified formulation Seasonal influenza vaccine, injectable, containing preservative, for > 3 years old (Afluria, FluLaval, Fluzone, Fluvirin, Fluarix, Agriflu(>=18 yo)) Fluzone (>3 yrs.) [[id number]] Influenza, seasonal, injectable Vital Signs Date Name [...] ... - Chemistry sodium, serum 141 mmol/L 270-162 6585/01/16 carbon dioxide, venous blood 28.3 mmol/L 21.0-32.0 [...] 6.7 % 4.3-6.0 cholesterol, serum 106 mg/dL 279-685 9306/01/16 triglyceride, serum, fasting 173 mg/dL 30-200 HDL [...] 4.3-6.0 Encounters Code Encounter Date Provider Facility CPT-31748 Level 3 Est. 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 Patient 13:42:[address] [facility] Tu Landeros MD [facility] CPT-70241 Level 3 Est. Patient 14:20:36 CDT Tu Landeros MD [facility] CPT-91273 Level 4 Est. Patient 14:28:34 CDT Tu Landeros MD [facility] CPT-45834 Level 3 Est. Patient 13:33:09 CDT Tu Landeros MD [facility] CPT-21719 Level 4 Est. Patient 14:29:21 CDT Tu Landeros MD [facility] CPT-93383 Level 4 Est. Patient 09:08:[address] [facility] Tu Landeros MD [facility] CPT-15220 Level 4 Est. Patient 14:40:19 CDT Tu Landeros MD [facility] CPT-83025 Level 4 Est. Patient 14:06:[address] [facility] Tu Landeros MD [facility] CPT-72052 Level 3 Est. Patient 14:05:[address] [facility] Tu Landeros MD [facility] CPT-75274 Level 3 Est. 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 Patient 13:50:[address] [facility] Tu Landeros MD [facility] CPT-26449 Level 3 Est. Patient 10:30:04 CDT Tu Landeros MD [facility] CPT-31760 Level 4 Est. Patient 11:03:38 CDT Tu Landeros MD [facility] CPT-67706 Level 3 Est. Patient 10:20:44 CDT Fab Morales DO [facility] CPT-83978 Level 4 Est. Patient 14:38:57 CDT Tu Landeros MD [facility] CPT-87662 Level 4 Est. Patient 14:27:[address] [facility] Tu Landeros MD [facility] CPT-87762 Level 4 Est. Patient 09:45:25 CDT Tu Landeros MD [facility] CPT-53972 Level 4 Est. Patient 09:05:[address] [employer] Tu Landeros MD [facility] CPT-91198 Level 4 Est. Patient 14:09:06 CDT Tu Landeros MD [facility] CPT-72529 Level 3 Est. Patient 13:36:54 CDT Tu Landeros MD [facility] CPT-34876 Level 3 Est. Patient 08:59:14 CDT Tu Landeros MD [facility] CPT-63632 Level 3 Est. Patient 13:48:35 CDT Fab Morales DO [facility] CPT-84042 Level 4 Est. Patient 10:05:48 CDT Tu Landeros MD [facility] CPT-71657 Level 3 Est. Patient 13:38:42 CDT Marek BANKS [facility] CPT-22579 Level 5 Est. Patient 08:08:39 CDT Jerrica FRANCIS [facility] CPT-29261 Level 4 Est. Patient 14:23:38 CDT Tu Landeros MD [facility] CPT-23562 Level 3 Est. Patient 11:44:04 CDT Tu Landeros MD [facility] CPT-43756 Level 3 Est. Patient 11:03:[address] [employer] Tu Landeros MD [facility] CPT-72728 Level 3 Est. Patient 11:03:[address] [employer] Tu Landeros MD [facility] CPT-87023 Level 3 Est. Patient 12:42:49 CDT Tu Landeros MD [facility] CPT-60319 Level 3 Est. Patient 11:52:06 CDT Tu Landeros MD [facility] CPT-39066 Level 3 Est. Patient 13:58:11 CDT Tu Landeros MD [facility] CPT-17660 Level 3 Est. Patient 17:50:07 CDT Fab Morales DO [facility] CPT-22980 Level 3 Est. Patient 12:06:29 CDT Elvira Cervantes MD PhD [facility] CPT-21931 Level 3 Est. Patient 15:50:32 CDT Tu Landeros MD [facility] CPT-52875 Level 4 Est. Patient 16:08:29 CDT Tu Landeros MD [facility] CPT-75568 Level 3 Est. Patient 16:04:19 CDT Tu Landeros MD [facility] CPT-50504 Level 3 Est. Patient 11:22:[address] [employer] Tu Landeros MD [facility] CPT-73232 Level 4 Est. Patient 16:24:[address] [employer] Tu Landeros MD [facility] CPT-86830 Level 3 Est. Patient 17:21:[address] [employer] Tu Landeros MD [facility] Procedures Code Procedure Name Date Entry Date Standard Description CPT-64776 Shoulder, right, comp min 2V - XRAY USE ONLY 13:50:22 CDT CPT-G0009 Administration of Pneumococcal Vaccine 15:08:26 CDT CPT-51713 Prevnar 13 Intramuscular Suspension 15:08:26 CDT 10/08 CPT-G0439 Subsequent Annual Wellness Exam 14:29:22 CDT CPT-32491 Venipuncture Draw Fee 13:15:35 CDT CPT-10086 Magnesium - LAB USE ONLY 11:14:[address] [facility] CPT-93092 Lipid - LAB USE ONLY 11:14:[address] [facility] CPT-00451 HGBA1C - LAB USE ONLY 11:14:[address] [facility] CPT-89993 CMP - LAB USE ONLY 11:14:[address] [facility] CPT-09991 CBC - LAB USE ONLY 11:14:[address] [facility] CPT-11111 Venipuncture Draw Fee 11:14:[address] [facility] CPT-58499 First Vx - Ix admin for Medicare patients 16:46:52 CDT CPT-10871 Fluzone Preservative Free Intramuscular Suspension 16:46 :51 CDT CPT-25709 CBC - LAB USE ONLY 17:14:46 CDT CPT-64501 HGBA1C - LAB USE ONLY 17:14:46 CDT CPT-78956 Venipuncture Draw Fee 17:14:46 CDT CPT-G0438 Initial Annual Wellness Exam 14:13:04 CDT CPT-77893 Breathing Tx 10:06:[address] [facility] CPT-16483 Postop F/U Visit 10:02:45 CDT CPT-LR Lesion Removal 09:02:56 CDT CPT-JTINJ Asp/Joint Injection 15:51:[address] [employer] CPT-OV Office Visit 15:52:02 [address] [employer] CPT-OV Office Visit 15:45:11 CDT CPT-000 Give Zostavax 14:09:06 CDT CPT-95146 Administration single or combination vaccine inc oral 15 :19:04 CDT CPT-39030 Zoster Vaccine (Zostavax) 15:19:04 CDT CPT-02158 Administration single or combination vaccine inc oral 20 :51:03 CDT CPT-02798 Influenza split virus > age 3 20:51:03 CDT CPT-47670 No Charge Offi Visit 14:52:03 CDT CPT-OV Office Visit 14:57:43 CDT CPT-OV Office Visit 15:22:32 CDT CPT-41216 Administration single or combination vaccine inc oral 11 :33:15 CDT CPT-94855 Influenza split virus > age 3 11:33:15 CDT
--- OUTSIDE RECORDS SUMMARY | 2018-04-25 16:12 | XMS REPORT | Clinical Summary ---
Author Author Admin, SACHI Organization [employer] Address Unknown Phone Unavailable Allergies, Adverse Reactions, [...] po TID PRN Muscle Spasm CYCLOBENZAPRINE HCL 27370854085 Active Tu Landeros MD Active DICLOFENAC SODIUM 50 MG ORAL TBEC 1 po BID PRN Pain DICLOFENAC SODIUM 00939238994 Delores Landeros MD Active INVOKANA 100 MG ORAL TABS 1 po qd CANAGLIFLOZIN 77449051607 Active Tu Landeros MD Active GLIPIZIDE 5 MG ORAL TABS 1 po qd GLIPIZIDE 30935745954 No Longer Active Tu Landeros MD Active VENLAFAXINE HCL 75 MG ORAL TABS 1 po BID VENLAFAXINE HCL 50566768707 Active Tu Landeros MD Active GLIMEPIRIDE 1 MG ORAL TABS 1 po qd GLIMEPIRIDE 18406824121 No Longer Active Tu Landeros MD Active TRUE METRIX BLOOD GLUCOSE TEST INVITR STRP Test blood sugar BID Dx: E11.9 GLUCOSE BLOOD 36554153056 Active Tu Landeros MD Active TRUE METRIX AIR GLUCOSE METER W/DEVICE KIT Test blood glucose BID Dx: E11.9 BLOOD GLUCOSE MONITORING SUPPL 63677871495 Active Tu Landeros MD Active TRUETEST TEST INVITR STRP test blood sugar twice daily. DX 250.0 GLUCOSE BLOOD 58575218943 No Longer Active Mirna Stanley LPN Active TRUEDRAW LANCING DEVICE MISC test blood sugar twice daily dx: 250.00 LANCET DEVICES 50977747091 No Longer Active Mirna Stanley LPN Active ENALAPRIL MALEATE 20 MG TABS 2 po qd ENALAPRIL MALEATE 92674929039 Active Lesli Kellogg APRN Active SUPER B COMPLEX/VITAMIN C TABS 1 qd B COMPLEX-C 52669181258 No Longer Active Tu Landeros MD Active ASPIRIN EC 81 MG ORAL TBEC 1 po qd ASPIRIN 34825504256 Active Tu Landeros MD Active GLUCOSAMINE 500 MG TABS 2 po qd GLUCOSAMINE Active Tu Landeros MD Active SIMVASTATIN 40 MG TABS 0.5 po qHS SIMVASTATIN 69976647150 Active Tu Landeros MD Active FISH OIL 1000 MG CAPS 1 po qd OMEGA-3 FATTY ACIDS 19689886307 Active Tu Landeros MD Active METFORMIN HCL 1000 MG TABS 1 po BID METFORMIN HCL 17409053567 Active Tu Landeros MD Active KLOR-CON 10 10 MEQ CR-TABS 2 po qd POTASSIUM CHLORIDE 07060349618 Active Tu Landeros MD Active FUROSEMIDE 40 MG TAB 1 po qd FUROSEMIDE 32970034815 Active Tu Landeros MD Active REQUIP 2 MG ORAL TABS 1 po qHS PRN Restless legs ROPINIROLE HCL 25249944513 Active Tu Landeros MD Active GABAPENTIN 100 MG CAPS 1 po BID GABAPENTIN 18538807112 Active Tu Landeros MD Active REQUIP 2 MG TABS Take one tablet at bedtime prn ROPINIROLE HCL 35868798473 No Longer Active Tu Landeros MD Active VENTOLIN HFA 108 (90 BASE) MCG/ACT AERS 1-2 puffs every 4 hours if needed for cough/congestion ALBUTEROL SULFATE 31852604720 No Longer Active Ambika Aden APRN Active ZITHROMAX 250 MG TAB 2 po today, then 1 po q days 2-5 AZITHROMYCIN 22468273974 No Longer Active Miranda Suresh APRN Active FLONASE 50 MCG/ACT SUSP 1 spray each nostril twice daily until bottle empty FLUTICASONE PROPIONATE 30589633410 No Longer Active Tu Landeros MD Active COLACE 100 MG CAP 1 po BID PRN Constipation DOCUSATE SODIUM 73688492532 Active Tu Landeros MD Active TRUERESULT BLOOD GLUCOSE W/DEVICE KIT test blood sugar twice daily dx 250.00 BLOOD GLUCOSE MONITORING SUPPL 82796349006 No Longer Active Tu Landeros MD Active TRUEDRAW LANCING DEVICE MISC Test twice a day dx 250.0 LANCET DEVICES 89709457371 No Longer Active Tu Landeros MD Active PREDNISONE 20 MG TAB 2 tablets once daily for 2 days, then 1 tablet once daily for 2 days PREDNISONE 02036207515 No Longer Active Tu Landeros MD Active DICLOFENAC SODIUM 50 MG TBEC 1 tablet by mouth three times a day as needed DICLOFENAC SODIUM 17564729102 No Longer Active Fab Morales DO Active EMBRACE BLOOD GLUCOSE TEST STRP test blood sugar twice daily DX 250.0 2014 GLUCOSE BLOOD 01725987760 No Longer Active Tu Landeros MD Active TRUETEST TEST STRP test blood sugar three times daily dx: 250.00 GLUCOSE BLOOD 74045912947 No Longer Active Suze Nicole RMA Active TRUERESULT BLOOD GLUCOSE W/DEVICE KIT use to test blood sugar tid dx: 250.00 BLOOD GLUCOSE MONITORING SUPPL 93247604693 No Longer Active Suze Corey RMA Active ALIGN 4 MG CAPS 1 tid PROBIOTIC PRODUCT 32214875899 No Longer Active Shaun Sy MD Active CIPRO 500 MG TABS 1 bid x 14 days start 09-28-13 CIPROFLOXACIN HCL 79340600702 No Longer Active Shaun Sy MD Active TRAMADOL HCL 50 MG TABS 1-2 tablets every 6 hours as needed for pain TRAMADOL HCL 51408523808 Active Lesli Kellogg APRN Active HYDROCODONE-ACETAMINOPHEN 5-325 MG TABS 1 tab by mouth every 6 hours as needed for pain HYDROCODONE-ACETAMINOPHEN 04410375611 No Longer Active Tu Landeros MD Active OMEPRAZOLE 20 MG CPDR 1 po q a.m. OMEPRAZOLE 10038918143 Active Fab Morales DO Active GABAPENTIN 100 MG CAPS 1 po bid GABAPENTIN 65503941935 No Longer Active Tu Landeros MD Active B-12 100 MCG TABS Take one by mouth daily CYANOCOBALAMIN 42711316456 No Longer Active Tu Landeros MD Active BACTRIM DS 800-160 MG TABS 1 bid x 14 day start 09-28-13 SULFAMETHOXAZOLE-TRIMETHOPRIM 09150979813 No Longer Active Tu Landeros MD Active CARVEDILOL 12.5 MG TABS 1 po BID CARVEDILOL 08323084433 Active Lesli Kellogg APRN Active TRILIPIX 135 MG CPDR 1 q hs CHOLINE FENOFIBRATE 77148708704 Active Tu Landeros MD Active FENOFIBRATE 145 MG TABS 1 po qd FENOFIBRATE 69118803582 No Longer Active JASPREET Perez Active OMEPRAZOLE 20 MG TBEC 1 PO 30 MIN BEFORE 1ST MEAL OMEPRAZOLE 25884562811 No Longer Active JASPREET Perez Active SIMVASTATIN 40 MG TABS Take one by mouth daily SIMVASTATIN 96620624276 No Longer Active JASPREET Perez Active VENLAFAXINE HCL 75 MG TABS 1 po BID VENLAFAXINE HCL 99868573906 No Longer Active JASPREET Perez Active CIPRO 500 MG TAB 1 tablet by mouth twice daily CIPROFLOXACIN HCL 23081150254 No Longer Active Tu Landeros MD Active VENLAFAXINE HCL 37.5 MG TABS 1 po BID VENLAFAXINE HCL 54652656051 No Longer Active Suze Nicole [facility] Active LAMISIL 250 MG TAB 1 po qd TERBINAFINE HCL 69644067300 No Longer Active Tu Landeros MD Active LORTAB 5 5-500 MG TABS 1/2 to 1 tablet by mouth every 4 hours as needed for pain HYDROCODONE-ACETAMINOPHEN 18960778489 No Longer Active Tu Landeros MD Active HYDROCODONE-ACETAMINOPHEN 5-500 MG TABS take one po Q 4-6 hours prn HYDROCODONE-ACETAMINOPHEN 04714462741 No Longer Active Tu Landeros MD Active BACTRIM DS 800-160 MG TABS 1 po BID x 7 days SULFAMETHOXAZOLE-TRIMETHOPRIM 05989820293 No Longer Active uT Landeros MD Active VENLAFAXINE HCL 75 MG TABS 1 po BID VENLAFAXINE HCL 52339879699 No Longer Active Elvira Cervantes MD PhD Active TRAMADOL HCL 50 MG TABS 1 tablets every 6 hours as needed for pain TRAMADOL HCL 30609561589 No Longer Active Tu Landeros MD Active ACCU-CHEK FASTCLIX LANCETS MISC Use to check bloodsugar three times daily as needed LANCETS 28959419953 No Longer Active Tu Landeros MD Active ACCU-CHEK KEYONA PLUS STRP Use for testing bloodsugars three times daily as needed GLUCOSE BLOOD 11599969175 No Longer Active Tu Landeros MD Active ACCU-CHEK KEYONA PLUS W/DEVICE KIT Use for testing bloodsugars three times daily as needed BLOOD GLUCOSE MONITORING SUPPL 68021366410 No Longer Active Tu Landeros MD Active SPIRONOLACTONE 25 MG TAB 0.5 tablet by mouth daily SPIRONOLACTONE 53171155588 No Longer Active Tu Landeros MD Active ALPRAZOLAM 0.5 MG TABS 1 tab every 6hrs as needed ALPRAZOLAM 81601332924 No Longer Active Tu Landeros MD Active AUGMENTIN 875-125 MG TAB 1 tab by mouth twice daily with food AMOXICILLIN-POT CLAVULANATE 17001260577 No Longer Active Tu Landeros MD Active PREDNISONE 20 MG TAB 2 tabs daily for 3 days, 1 tab daily for 3 days, 1/2 tab daily for 2 days PREDNISONE 63490882366 No Longer Active Tu Landeros MD Active XANAX 0.5 MG TABS 1 tablet every 6 hrs prn ALPRAZOLAM 18973994902 No Longer Active Tu Landeros MD Active PREDNISONE 20 MG TAB 2 tabs daily for 3 days, 1 tab daily for 3 days, 1/2 tab daily for 2 days PREDNISONE 71916342113 No Longer Active Tu Landeros MD Active TRIAMCINOLONE ACETONIDE 0.1 % OINT Apply to affected areas TID for up to 2 weeks TRIAMCINOLONE ACETONIDE 09836869750 No Longer Active Tu Landeros MD Active LORTAB 5 5-500 MG TABS 1/2 to 1 tablet by mouth every 4 hours as needed for pain HYDROCODONE-ACETAMINOPHEN 04464380229 No Longer Active Tu Landeros MD Active MULTIVITAMINS TABS Take one by mouth daily MULTIPLE VITAMIN 43940236068 No Longer Active Tu Landeros MD Active MELATONIN 5 MG TABS Take one by mouth daily MELATONIN 38887855658 No Longer Active Tu Landeros MD Active SOMA 350 MG TAB 1 po q 6 hours prn spasm CARISOPRODOL 70538734341 No Longer Active Tu Landeros MD Active MECLIZINE HCL 25 MG CHEW TAB 1 four times a day as needed for dizziness 08/05 MECLIZINE HCL 96035477574 No Longer Active Fab Morales DO Active ANGEL BREEZE 2 TEST DISK test tid prn GLUCOSE BLOOD 38002241148 No Longer Active Negra Scott RN Active REGLAN 10 MG TAB 1 po TID PRN Nausea METOCLOPRAMIDE HCL 89483942125 No Longer Active Tu Landeros MD Active METFORMIN HCL 500 MG TABS 1 PO BID METFORMIN HCL 43087134137 No Longer Active Tu Landeros MD Active AMBIEN 10 MG TAB 1 tab by mouth at bedtime as needed for sleep ZOLPIDEM TARTRATE 15946148118 No Longer Active Tu Landeros MD Active FLUOXETINE HCL 40 MG CAPS 1 po q day FLUOXETINE HCL 09586263539 No Longer Active Mayra [place] Active TRILIPIX 135 MG CPDR 1 po qd CHOLINE FENOFIBRATE 50022515481 No Longer Active Tu Landeros MD Active AMBIEN 10 MG TAB 1 tab by mouth at bedtime as needed for sleep AMBIEN 10 MG TAB 425146 ZOLPIDEM TARTRATE Inactive METFORMIN HCL 500 MG TABS 1 PO BID METFORMIN HCL 500 MG TABS 862309 METFORMIN HCL Inactive REGLAN 10 MG TAB 1 po TID PRN Nausea REGLAN 10 MG TAB 271542 METOCLOPRAMIDE HCL Inactive MECLIZINE HCL 25 MG CHEW TAB 1 four times a day as needed for dizziness 08/05 MECLIZINE HCL 25 MG CHEW TAB 796218 MECLIZINE HCL Inactive SOMA 350 MG TAB 1 po q 6 hours prn spasm SOMA 350 MG TAB 498201 CARISOPRODOL Inactive MELATONIN 5 MG TABS Take one by mouth daily MELATONIN 5 MG TABS 440609 MELATONIN Inactive MULTIVITAMINS TABS Take one by mouth daily MULTIVITAMINS TABS MULTIPLE VITAMIN Inactive LORTAB 5 5-500 MG TABS 1/2 to 1 tablet by mouth every 4 hours as needed for pain LORTAB 5 5-500 MG TABS HYDROCODONE- ACETAMINOPHEN Inactive XANAX 0.5 MG TABS 1 tablet every 6 hrs prn XANAX 0.5 MG TABS 253352 ALPRAZOLAM Inactive AUGMENTIN 875-125 MG TAB 1 tab by mouth twice daily with food AUGMENTIN 875-125 MG TAB 479885 AMOXICILLIN-POT CLAVULANATE Inactive ALPRAZOLAM 0.5 MG TABS 1 tab every 6hrs as needed ALPRAZOLAM 0.5 MG TABS 728493 ALPRAZOLAM Inactive SPIRONOLACTONE 25 MG TAB 0.5 tablet by mouth daily SPIRONOLACTONE 25 MG TAB 158611 SPIRONOLACTONE Inactive ACCU-CHEK KEYONA PLUS W/DEVICE KIT Use for testing bloodsugars three times daily as needed ACCU-CHEK KEYONA PLUS W/DEVICE KIT BLOOD GLUCOSE MONITORING SUPPL Inactive ACCU-CHEK KEYONA PLUS STRP Use for testing bloodsugars three times daily as needed ACCU-CHEK KEYONA PLUS STRP GLUCOSE BLOOD Inactive ACCU-CHEK FASTCLIX LANCETS MISC Use to check bloodsugar three times daily as needed ACCU-CHEK FASTCLIX LANCETS [facility] 07927563170 LANCETS Inactive TRAMADOL HCL 50 MG TABS 1 tablets every 6 hours as needed for pain TRAMADOL HCL 50 MG TABS 769848 TRAMADOL HCL Inactive VENLAFAXINE HCL 75 MG TABS 1 po BID VENLAFAXINE HCL 75 MG TABS 639574 VENLAFAXINE HCL Inactive HYDROCODONE-ACETAMINOPHEN 5-500 MG TABS take one po Q 4-6 hours prn HYDROCODONE-ACETAMINOPHEN 5-500 MG TABS HYDROCODONE- ACETAMINOPHEN Inactive LORTAB 5 5-500 MG TABS 1/2 to 1 tablet by mouth every 4 hours as needed for pain LORTAB 5 5-500 MG TABS HYDROCODONE- ACETAMINOPHEN Inactive LAMISIL 250 MG TAB 1 po qd LAMISIL 250 MG TAB 534676 TERBINAFINE HCL Inactive VENLAFAXINE HCL 37.5 MG TABS 1 po BID VENLAFAXINE HCL 37.5 MG TABS 622412 VENLAFAXINE HCL Inactive CIPRO 500 MG TAB 1 tablet by mouth twice daily CIPRO 500 MG TAB 539372 CIPROFLOXACIN HCL Inactive VENLAFAXINE HCL 75 MG TABS 1 po BID VENLAFAXINE HCL 75 MG TABS 967803 VENLAFAXINE HCL Inactive SIMVASTATIN 40 MG TABS Take one by mouth daily SIMVASTATIN 40 MG TABS 192667 SIMVASTATIN Inactive OMEPRAZOLE 20 MG TBEC 1 PO 30 MIN BEFORE 1ST MEAL OMEPRAZOLE 20 MG TBEC 367948 OMEPRAZOLE Inactive FENOFIBRATE 145 MG TABS 1 po qd FENOFIBRATE 145 MG TABS 699188 FENOFIBRATE Inactive BACTRIM DS 800-160 MG TABS 1 bid x 14 day start 09-28-13 BACTRIM DS 800-160 MG TABS 364392 SULFAMETHOXAZOLE-TRIMETHOPRIM Inactive B-12 100 MCG TABS Take one by mouth daily B-12 100 MCG TABS CYANOCOBALAMIN Inactive GABAPENTIN 100 MG CAPS 1 po bid GABAPENTIN 100 MG CAPS 630783 GABAPENTIN Inactive HYDROCODONE-ACETAMINOPHEN 5-325 MG TABS 1 tab by mouth every 6 hours as needed for pain HYDROCODONE-ACETAMINOPHEN 5-325 MG TABS 418385 HYDROCODONE-ACETAMINOPHEN Inactive CIPRO 500 MG TABS 1 bid x 14 days start 09-28-13 CIPRO 500 MG TABS 606300 CIPROFLOXACIN HCL Inactive ALIGN 4 MG CAPS [...] as needed DICLOFENAC SODIUM 50 MG TBEC 089264 DICLOFENAC SODIUM Inactive PREDNISONE 20 MG TAB 2 tablets once daily for 2 days, then 1 tablet once daily for 2 days PREDNISONE 20 MG TAB 539625 PREDNISONE Inactive TRUEDRAW LANCING DEVICE MISC Test twice a day dx 250.0 TRUEDRAW LANCING DEVICE MISC LANCET DEVICES Inactive TRUERESULT BLOOD GLUCOSE W/DEVICE KIT test blood sugar twice daily dx 250.00 TRUERESULT BLOOD GLUCOSE W/DEVICE KIT BLOOD GLUCOSE MONITORING SUPPL Inactive FLONASE 50 MCG/ACT SUSP 1 spray each nostril twice daily until bottle empty FLONASE 50 MCG/ACT SUSP 6136799 FLUTICASONE PROPIONATE Inactive VENTOLIN HFA 108 (90 BASE) MCG/ACT AERS 1-2 puffs every 4 hours if needed for cough/congestion VENTOLIN HFA 108 (90 BASE) MCG/ACT AERS ALBUTEROL SULFATE Inactive REQUIP 2 MG TABS Take one tablet at bedtime prn REQUIP 2 MG TABS 485546 ROPINIROLE HCL Inactive SUPER B COMPLEX/VITAMIN C TABS 1 qd SUPER B COMPLEX/ VITAMIN C TABS 18952734510 B COMPLEX-C Inactive TRUEDRAW LANCING DEVICE MISC test blood sugar twice daily dx: 250.00 TRUEDRAW LANCING DEVICE MISC LANCET DEVICES Inactive TRUETEST TEST INVITR STRP test blood sugar twice daily. DX 250.0 TRUETEST TEST INVITR STRP GLUCOSE BLOOD Inactive TRIAMCINOLONE ACETONIDE 0.1 % OINT Apply to affected areas TID for up to 2 weeks TRIAMCINOLONE ACETONIDE 0.1 % OINT 4268834 TRIAMCINOLONE ACETONIDE Inactive PREDNISONE 20 MG TAB 2 tabs daily for 3 days, 1 tab daily for 3 days, 1/2 tab daily for 2 days PREDNISONE 20 MG TAB 198081 PREDNISONE Inactive PREDNISONE 20 MG TAB 2 tabs daily for 3 days, 1 tab daily for 3 days, 1/2 tab daily for 2 days PREDNISONE 20 MG TAB 868356 PREDNISONE Inactive BACTRIM DS 800-160 MG TABS 1 po BID x 7 days BACTRIM DS 800-160 MG TABS 707458 SULFAMETHOXAZOLE-TRIMETHOPRIM Inactive ZITHROMAX 250 MG TAB 2 po today, then 1 po q days 2-5 ZITHROMAX 250 MG TAB 9098134 AZITHROMYCIN Inactive Advance Directives Directive Description Start Date DISCUSSED WITH PATIENT -- NO DECISION MADE Immunizations Vaccine Administration Date Value Standard Description Seasonal influenza vaccine, injectable, containing preservative, for > 3 years old (Afluria, FluLaval, Fluzone, Fluvirin, Fluarix, Agriflu(>=18 yo)) Fluzone (>3 yrs.) [[id number]] Influenza, seasonal, injectable influenza immunization (Flu Vax) has been administered 02/22/2012 influenza virus vaccine, unspecified formulation Seasonal influenza vaccine, injectable, containing preservative, for > 3 years old (Afluria, FluLaval, Fluzone, Fluvirin, Fluarix, Agriflu(>=18 yo)) Fluzone (>3 yrs.) [[id number]] Influenza, seasonal, injectable Vital Signs Date Name [...] Magnesium - Chemistry sodium, serum 143 mmol/L 661-939 8133/01/10 carbon dioxide, venous blood 28.0 mmol/L 21.0-32.0 potassium, serum 4.5 mmol/L 3.5-5.2 chloride, serum 104 mmol/L 98-107 blood glucose 158 mg/dL 65-110 urea nitrogen, blood 23 mg/dL 7-18 creatinine, serum 1.06 mg/dL 0.55-1.30 alanine aminotransferase (SGPT), serum 42 U/L 12-78 aspartate aminotransferase (SGOT), serum 32 U/L 15-37 calcium, serum 9.3 mg/dL 8.5-10.1 bilirubin, serum, total 0.20 mg/dL 0.00-1.00 cholesterol, serum 177 mg/dL 733-599 3322/01/10 triglyceride, serum, fasting 320 mg/dL 30-200 HDL cholesterol, serum 46 mg/dL 32-96 LDL cholesterol, serum 67 mg/dL 0-130 Lab Report: COMPREHENSIVE METABOLIC PANEL, LIPID PANEL, HEMOGLOBIN A1c - Chemistry cholesterol, serum 135 mg/dL 296-674 5256/05/17 HDL cholesterol, serum 41 mg/dL > OR=46 triglyceride, serum, fasting 206 mg/dL <150 LDL cholesterol, serum 53 MG/DL (CALC) mg/dL <130 cholesterol/HDL ratio, serum 3.3 (calc) < OR=5.0 Lab Report: HGBA1C - Chemistry hemoglobin A1C, blood, as % of total hemoglobin 7.4 % 4.3-6.0 sodium, serum 140 mmol/L 676-401 3709/09/07 potassium, serum 4.3 mmol/L 3.5-5.2 chloride, serum [...] <30 Encounters Code Encounter Date Provider Facility CPT-10388 Level 3 Est. Patient 13:33:09 CDT Tu Landeros MD [facility] CPT-44819 Level 4 Est. Patient 14:29:21 CDT Tu Landeros MD [facility] CPT-48434 Level 4 Est. Patient 09:08:17 INVESTMENT EXECUTIVE Tu Landeros MD [facility] CPT-56985 Level 4 Est. Patient 14:40:19 CDT Tu Landeros MD [facility] CPT-93356 Level 4 Est. Patient 14:06:04 INVESTMENT EXECUTIVE Tu Landeros MD [facility] CPT-88526 Level 3 Est. Patient 14:05:18 INVESTMENT EXECUTIVE Tu Landeros MD [facility] CPT-61836 Level 3 Est. Patient 10:06:54 [facility]STMENT EXEC[facility] Level 4 Est. Patient 13:50:18 INVESTMENT EXECUTIVE Tu Landeros MD [facility] CPT-08171 Level 3 Est. Patient 10:30:04 CDT Tu Landeros MD [facility] CPT-16717 Level 4 Est. Patient 11:03:38 CDT Tu Landeros MD [facility] CPT-54218 Level 3 Est. Patient 10:20:44 CDT Fab Morales DO [facility] CPT-97077 Level 4 Est. Patient 14:38:57 CDT Tu Landeros MD [facility] CPT-63153 Level 4 Est. Patient 14:27:39 INVESTMENT EXECUTIVE Tu Landeros MD [facility] CPT-77205 Level 4 Est. Patient 09:45:25 CDT Tu Landeros MD [facility] CPT-52920 Level 4 Est. Patient 09:05:20 INVESTMENT EXECUTIVE Tu Landeros MD [facility] CPT-30638 Level 4 Est. Patient 14:09:06 CDT Tu Landeros MD [facility] CPT-00021 Level 3 Est. Patient 13:36:54 CDT Tu Landeros MD [facility] CPT-18947 Level 3 Est. Patient 08:59:14 CDT Tu Landeros MD [facility] CPT-19345 Level 3 Est. Patient 13:48:35 CDT Fab Morales DO [facility] CPT-68430 Level 4 Est. Patient 10:05:48 CDT Tu Landeros MD [facility] CPT-08176 Level 3 Est. Patient 13:38:42 CDT Marek BANKS [facility] CPT-37132 Level 5 Est. Patient 08:08:39 CDT Jerrica FRANCIS [facility] CPT-96692 Level 4 Est. Patient 14:23:38 CDT Tu Landeros MD [facility] CPT-23999 Level 3 Est. Patient 11:44:04 CDT Tu Landeros MD [facility] CPT-07538 Level 3 Est. Patient 11:03:20 INVESTMENT EXECUTIVE Tu Landeros MD [facility] CPT-21525 Level 3 Est. Patient 11:03:14 INVESTMENT EXECUTIVE Tu Landeros MD [facility] CPT-21445 Level 3 Est. Patient 12:42:49 CDT Tu Landeros MD [facility] CPT-19105 Level 3 Est. Patient 11:52:06 CDT Tu Landeros MD [facility] CPT-65074 Level 3 Est. Patient 13:58:11 CDT Tu Landeros MD [facility] CPT-57288 Level 3 Est. Patient 17:50:07 CDT Fab Morales DO [facility] CPT-83007 Level 3 Est. Patient 12:06:29 CDT Elvira Cervantes MD PhD [facility] CPT-14656 Level 3 Est. Patient 15:50:32 CDT Tu Landeros MD [facility] CPT-33005 Level 4 Est. Patient 16:08:29 CDT Tu Landeros MD [facility] CPT-99257 Level 3 Est. Patient 16:04:19 CDT Tu Landeros MD [facility] CPT-14397 Level 3 Est. Patient 11:22:30 INVESTMENT EXECUTIVE Tu Landeros MD [facility] CPT-13674 Level 4 Est. Patient 16:24:02 INVESTMENT EXECUTIVE Tu Landeros MD [facility] CPT-43475 Level 3 Est. Patient 17:21:23 INVESTMENT EXECUTIVE Tu Landeros MD [facility] Procedures Code Procedure Name Date Entry Date Standard Description CPT-87751 Shoulder, right, comp min 2V - XRAY USE ONLY 13:50:22 CDT CPT-G0009 Administration of Pneumococcal Vaccine 15:08:26 CDT CPT-99876 Prevnar 13 Intramuscular Suspension 15:08:26 CDT 10/08 CPT-G0439 [facility] Annual Wellness Exam 14:29:22 CDT CPT-82609 Venipuncture Draw Fee 13:15:35 CDT CPT-95882 Magnesium - LAB USE ONLY 11:14:20 INVESTMENT EXECUTIVE CPT-55940 Lipid - LAB USE ONLY 11:14:20 INVESTMENT EXECUTIVE CPT-82661 HGBA1C - LAB USE ONLY 11:14:20 INVESTMENT EXECUTIVE CPT-13243 CMP - LAB USE ONLY 11:14:19 INVESTMENT EXECUTIVE CPT-11523 CBC - LAB USE ONLY 11:14:19 INVESTMENT EXECUTIVE CPT-25554 Venipuncture Draw Fee 11:14:18 INVESTMENT EXECUTIVE CPT-38979 First Vx - Ix admin for Medicare patients 16:46:52 CDT CPT-43158 Fluzone Preservative Free Intramuscular Suspension 16:46 :51 CDT CPT-23169 CBC - LAB USE ONLY 17:14:46 CDT CPT-11885 HGBA1C - LAB USE ONLY 17:14:46 CDT CPT-04908 Venipuncture Draw Fee 17:14:46 CDT CPT-G0438 Initial Annual Wellness Exam 14:13:04 CDT CPT-47469 Breathing Tx 10:06:54 INVESTMENT EXECUTIVE CPT-30984 Postop F/U Visit 10:02:45 CDT CPT-LR Lesion Removal 09:02:56 CDT CPT-JTINJ Asp/Joint Injection 15:51:27 INVESTMENT EXECUTIVE CPT-OV Office Visit 15:52:02 INVESTMENT EXECUTIVE CPT-OV Office Visit 15:45:11 CDT CPT-000 Give Zostavax 14:09:06 CDT CPT-10880 Administration single or combination vaccine inc oral 15 :19:04 CDT CPT-08948 Zoster Vaccine (Zostavax) 15:19:04 CDT CPT-75185 Administration single or combination vaccine inc oral 20 :51:03 CDT CPT-85430 Influenza split virus > age 3 20:51:03 CDT CPT-95065 No Charge Offi Visit 14:52:03 CDT CPT-OV Office Visit 14:57:43 CDT CPT-OV Office Visit 15:22:32 CDT CPT-83698 Administration single or combination vaccine inc oral 11 :33:15 CDT CPT-26437 Influenza split virus > age 3 11:33:15 CDT
--- OUTSIDE RECORDS SUMMARY | 2018-04-25 16:13 | XMS REPORT | Clinical Summary ---
Author Author Admin, SACHI Clemons [facility] Address Unknown Phone Unavailable Allergies, Adverse [...] CONTUSION OF UNSPECIFIED SITE ICD-924.9 Inactive Tu Ladneros MD PRESSURE ULCER UNSPECIFIED SITE ICD-707.00 Inactive [...] twice daily until bottle empty FLUTICASONE PROPIONATE 85779587340 Active Fab Morales DO Active PREDNISONE 20 MG TAB 2 tablets once daily for 2 days, then 1 tablet once daily for 2 days PREDNISONE 01595246749 Active Fab Morales DO Active DICLOFENAC SODIUM 50 MG TBEC 1 tablet by mouth three times a day as needed DICLOFENAC SODIUM 86183326752 No Longer Active Fab Morales DO Active METFORMIN HCL 850 MG TABS 1 tablet by mouth twice daily METFORMIN HCL 40887217167 Active Tu Landeros MD Active TRUEDRAW LANCING DEVICE MISC test blood sugar twice daily dx: 250.00 LANCET DEVICES 70200463668 Active Tu Landeros MD Active TRUEDRAW LANCING DEVICE MISC Test twice a day dx 250.0 LANCET DEVICES 23708922723 Active Tu Landeros MD Active TRUERESULT BLOOD GLUCOSE W/DEVICE KIT test blood sugar twice daily dx 250.00 BLOOD GLUCOSE MONITORING SUPPL 28251329002 Active Tu Landeros MD Active TRUETEST TEST INVITR STRP test blood sugar twice daily. DX 250.0 GLUCOSE BLOOD 26908542897 Active Tu Landeros MD Active EMBRACE BLOOD GLUCOSE TEST STRP test blood sugar twice daily DX 250.0 2014 GLUCOSE BLOOD 57201719020 No Longer Active Tu Landeros MD Active TRUETEST TEST STRP test blood sugar three times daily dx: 250.00 GLUCOSE BLOOD 22992466938 No Longer Active Suze Hardenehart NURYSMahendra Active TRUERESULT BLOOD GLUCOSE W/DEVICE KIT use to test blood sugar tid dx: 250.00 BLOOD GLUCOSE MONITORING SUPPL 74090308098 No Longer Active Suze Hardenosbaldo VOGEL Active ALIGN 4 MG CAPS 1 tid PROBIOTIC PRODUCT 79870290187 No Longer Active Shaun Sy MD Active CIPRO 500 MG TABS 1 bid x 14 days start 09-28-13 CIPROFLOXACIN HCL 04874862464 No Longer Active Shaun Sy MD Active TRAMADOL HCL 50 MG TABS 1-2 tablets every 6 hours as needed for pain TRAMADOL HCL 86145136087 Active Tu Landeros MD Active HYDROCODONE-ACETAMINOPHEN 5-325 MG TABS 1 tab by mouth every 6 hours as needed for pain HYDROCODONE-ACETAMINOPHEN 71206979635 No Longer Active Tu Landeros MD Active OMEPRAZOLE 20 MG CPDR 1 po q a.m. OMEPRAZOLE 22744548642 Active Elvira Cervantes MD PhD Active GABAPENTIN 100 MG CAPS 1 po bid GABAPENTIN 57488188499 No Longer Active Tu Landeros MD Active B-12 100 MCG TABS Take one by mouth daily CYANOCOBALAMIN 06048909276 No Longer Active Tu Landeros MD Active GABAPENTIN 100 MG CAPS by mouth twice a day GABAPENTIN 80743208295 Active Tu Landeros MD Active BACTRIM DS 800-160 MG TABS 1 bid x 14 day start 09-28-13 SULFAMETHOXAZOLE-TRIMETHOPRIM 41453257540 No Longer Active Tu Landeros MD Active SIMVASTATIN 40 MG TABS 1 tab daily at bedtime SIMVASTATIN 90884406427 Active Tu Landeros MD Active CARVEDILOL 12.5 MG TABS 1 po BID CARVEDILOL 68304435900 Active Tu Landeros MD Active SUPER B COMPLEX/VITAMIN C TABS 1 qd B COMPLEX-C 28839535392 Active JASPREET Perez Active TRILIPIX 135 MG CPDR 1 q hs CHOLINE FENOFIBRATE 89041651681 Active Tu Landeros MD Active FENOFIBRATE 145 MG TABS 1 po qd FENOFIBRATE 44940671328 No Longer Active JASPREET Perez Active OMEPRAZOLE 20 MG TBEC 1 PO 30 MIN BEFORE 1ST MEAL OMEPRAZOLE 26604259285 No Longer Active JASPREET Perez Active SIMVASTATIN 40 MG TABS Take one by mouth daily SIMVASTATIN 14889633667 No Longer Active JASPREET Perez Active VENLAFAXINE HCL 37.5 MG TABS 1 bid VENLAFAXINE HCL 20572389407 Active Tu Landeros MD Active VENLAFAXINE HCL 75 MG TABS 1 po BID VENLAFAXINE HCL 89639573779 No Longer Active JASPREET Perez Active CIPRO 500 MG TAB 1 tablet by mouth twice daily CIPROFLOXACIN HCL 92102935470 No Longer Active Tu Landeros MD Active VENLAFAXINE HCL 37.5 MG TABS 1 po BID VENLAFAXINE HCL 36501568883 No Longer Active Suzebianca VOGEL Active CVS STOOL SOFTENER 100 MG CAPS 1 tab daily DOCUSATE SODIUM 31033805448 Active Tu Landeros MD Active LAMISIL 250 MG TAB 1 po qd TERBINAFINE HCL 06523509606 No Longer Active Tu Landeros MD Active LORTAB 5 5-500 MG TABS 1/2 to 1 tablet by mouth every 4 hours as needed for pain HYDROCODONE-ACETAMINOPHEN 61800035916 No Longer Active Tu Landeros MD Active ENALAPRIL MALEATE 20 MG TABS 1.5 po qd ENALAPRIL MALEATE 97326536963 Active Tu Landeros MD Active HYDROCODONE-ACETAMINOPHEN 5-500 MG TABS take one po Q 4-6 hours prn HYDROCODONE-ACETAMINOPHEN 26377300584 No Longer Active Tu Landeros MD Active BACTRIM DS 800-160 MG TABS 1 po BID x 7 days SULFAMETHOXAZOLE-TRIMETHOPRIM 16986926029 No Longer Active Tu Landeros MD Active VENLAFAXINE HCL 75 MG TABS 1 po BID VENLAFAXINE HCL 18137189985 No Longer Active Elvira Cervantes MD PhD Active TRAMADOL HCL 50 MG TABS 1 tablets every 6 hours as needed for pain TRAMADOL HCL 37988610504 No Longer Active Tu Landeros MD Active ACCU-CHEK FASTCLIX LANCETS MISC Use to check bloodsugar three times daily as needed LANCETS 34811117866 No Longer Active Tu Landeros MD Active ACCU-CHEK KEYONA PLUS STRP Use for testing bloodsugars three times daily as needed GLUCOSE BLOOD 66907955973 No Longer Active Tu Landeros MD Active ACCU-CHEK KEYONA PLUS W/DEVICE KIT Use for testing bloodsugars three times daily as needed BLOOD GLUCOSE MONITORING SUPPL 58103358575 No Longer Active Tu Landeros MD Active SPIRONOLACTONE 25 MG TAB 0.5 tablet by mouth daily SPIRONOLACTONE 04470642899 No Longer Active Tu Landeros MD Active ALPRAZOLAM 0.5 MG TABS 1 tab every 6hrs as needed ALPRAZOLAM 92539529207 No Longer Active Tu Landeros MD Active AUGMENTIN 875-125 MG TAB 1 tab by mouth twice daily with food AMOXICILLIN-POT CLAVULANATE 12984693006 No Longer Active Tu Landeros MD Active PREDNISONE 20 MG TAB 2 tabs daily for 3 days, 1 tab daily for 3 days, 1/2 tab daily for 2 days PREDNISONE 88032435225 No Longer Active Tu Landeros MD Active XANAX 0.5 MG TABS 1 tablet every 6 hrs prn ALPRAZOLAM 18433071479 No Longer Active Tu Landeros MD Active PREDNISONE 20 MG TAB 2 tabs daily for 3 days, 1 tab daily for 3 days, 1/2 tab daily for 2 days PREDNISONE 93780891768 No Longer Active Tu Landeros MD Active TRIAMCINOLONE ACETONIDE 0.1 % OINT Apply to affected areas TID for up to 2 weeks TRIAMCINOLONE ACETONIDE 53222535001 No Longer Active Tu Landeros MD Active LORTAB 5 5-500 MG TABS 1/2 to 1 tablet by mouth every 4 hours as needed for pain HYDROCODONE-ACETAMINOPHEN 43209317354 No Longer Active Tu Landeros MD Active MULTIVITAMINS TABS Take one by mouth daily MULTIPLE VITAMIN 25686540934 No Longer Active Tu Landeros MD Active MELATONIN 5 MG TABS Take one by mouth daily MELATONIN 39015876684 No Longer Active Tu Landeros MD Active SOMA 350 MG TAB 1 po q 6 hours prn spasm CARISOPRODOL 00729308761 No Longer Active Tu Landeros MD Active MECLIZINE HCL 25 MG CHEW TAB 1 four times a day as needed for dizziness 08/05 MECLIZINE HCL 47822194125 No Longer Active Fab Morales DO Active ANGEL BREEZE 2 TEST DISK test tid prn GLUCOSE BLOOD 77690894302 No Longer Active Negra Scott RN Active REGLAN 10 MG TAB 1 po TID PRN Nausea METOCLOPRAMIDE HCL 65457332235 No Longer Active Tu Landeros MD Active METFORMIN HCL 500 MG TABS 1 PO BID METFORMIN HCL 15374937987 No Longer Active Tu Landeros MD Active AMBIEN 10 MG TAB 1 tab by mouth at bedtime as needed for sleep ZOLPIDEM TARTRATE 31976417490 No Longer Active Tu Landeros MD Active FLUOXETINE HCL 40 MG CAPS 1 po q day FLUOXETINE HCL 54219004453 No Longer Active Mayra Terry Active FISH OIL 1000 MG CAPS Take one by mouth daily OMEGA-3 FATTY ACIDS 47949439624 Active Tu Landeros MD Active GLUCOSAMINE 500 MG TABS Take 2 tab po qd GLUCOSAMINE 15808422463 Active Tu Landeros MD Active TRILIPIX 135 MG CPDR 1 po qd CHOLINE FENOFIBRATE 60669946147 No Longer Active Tu Landeros MD Active ASPIRIN 81 MG CHEW TAB 1 tablet by mouth daily ASPIRIN 89871725513 Active Tu Landeros MD Active FUROSEMIDE 40 MG TAB 1 tablet by mouth daily FUROSEMIDE 51111958414 Active Tu Landeros MD Active REQUIP 2 MG TABS Take one tablet at bedtime prn ROPINIROLE HCL 64405240304 Active Tu Landeros MD Active KLOR-CON 10 10 MEQ CR-TABS TAKE 2 TABS DAILY POTASSIUM CHLORIDE 85577224534 Active Tu Landeros MD Active AMBIEN 10 MG TAB 1 tab by mouth at bedtime as needed for sleep AMBIEN 10 MG TAB 400300 ZOLPIDEM TARTRATE Inactive METFORMIN HCL 500 MG TABS 1 PO BID METFORMIN HCL 500 MG TABS 099551 METFORMIN HCL Inactive REGLAN 10 MG TAB 1 po TID PRN Nausea REGLAN 10 MG TAB 094222 METOCLOPRAMIDE HCL Inactive MECLIZINE HCL 25 MG CHEW TAB 1 four times a day as needed for dizziness 08/05 MECLIZINE HCL 25 MG CHEW TAB 380164 MECLIZINE HCL Inactive SOMA 350 MG TAB 1 po q 6 hours prn spasm SOMA 350 MG TAB 320735 CARISOPRODOL Inactive MELATONIN 5 MG TABS Take one by mouth daily MELATONIN 5 MG TABS 131589 MELATONIN Inactive MULTIVITAMINS TABS Take one by mouth daily MULTIVITAMINS TABS MULTIPLE VITAMIN Inactive LORTAB 5 5-500 MG TABS 1/2 to 1 tablet by mouth every 4 hours as needed for pain LORTAB 5 5-500 MG TABS HYDROCODONE- ACETAMINOPHEN Inactive XANAX 0.5 MG TABS 1 tablet every 6 hrs prn XANAX 0.5 MG TABS 733417 ALPRAZOLAM Inactive AUGMENTIN 875-125 MG TAB 1 tab by mouth twice daily with food AUGMENTIN 875-125 MG TAB 831146 AMOXICILLIN-POT CLAVULANATE Inactive ALPRAZOLAM 0.5 MG TABS 1 tab every 6hrs as needed ALPRAZOLAM 0.5 MG TABS 740155 ALPRAZOLAM Inactive SPIRONOLACTONE 25 MG TAB 0.5 tablet by mouth daily SPIRONOLACTONE 25 MG TAB 735565 SPIRONOLACTONE Inactive ACCU-CHEK KEYONA PLUS W/DEVICE KIT Use for testing bloodsugars three times daily as needed ACCU-CHEK KEYONA PLUS W/DEVICE KIT BLOOD GLUCOSE MONITORING SUPPL Inactive ACCU-CHEK KEYONA PLUS STRP Use for testing bloodsugars three times daily as needed ACCU-CHEK KEYONA PLUS STRP GLUCOSE BLOOD Inactive ACCU-CHEK FASTCLIX LANCETS MISC Use to check bloodsugar three times daily as needed ACCU-CHEK FASTCLIX LANCETS MISC 16496957099 LANCETS Inactive TRAMADOL HCL 50 MG TABS 1 tablets every 6 hours as needed for pain TRAMADOL HCL 50 MG TABS 459742 TRAMADOL HCL Inactive VENLAFAXINE HCL 75 MG TABS 1 po BID VENLAFAXINE HCL 75 MG TABS 711120 VENLAFAXINE HCL Inactive HYDROCODONE-ACETAMINOPHEN 5-500 MG TABS take one po Q 4-6 hours prn HYDROCODONE-ACETAMINOPHEN 5-500 MG TABS HYDROCODONE- ACETAMINOPHEN Inactive LORTAB 5 5-500 MG TABS 1/2 to 1 tablet by mouth every 4 hours as needed for pain LORTAB 5 5-500 MG TABS HYDROCODONE- ACETAMINOPHEN Inactive LAMISIL 250 MG TAB 1 po qd LAMISIL 250 MG TAB 070111 TERBINAFINE HCL Inactive VENLAFAXINE HCL 37.5 MG TABS 1 po BID VENLAFAXINE HCL 37.5 MG TABS 540097 VENLAFAXINE HCL Inactive CIPRO 500 MG TAB 1 tablet by mouth twice daily CIPRO 500 MG TAB 330350 CIPROFLOXACIN HCL Inactive VENLAFAXINE HCL 75 MG TABS 1 po BID VENLAFAXINE HCL 75 MG TABS 221117 VENLAFAXINE HCL Inactive SIMVASTATIN 40 MG TABS Take one by mouth daily SIMVASTATIN 40 MG TABS 166657 SIMVASTATIN Inactive OMEPRAZOLE 20 MG TBEC 1 PO 30 MIN BEFORE 1ST MEAL OMEPRAZOLE 20 MG TBEC 818064 OMEPRAZOLE Inactive FENOFIBRATE 145 MG TABS 1 po qd FENOFIBRATE 145 MG TABS 077248 FENOFIBRATE Inactive BACTRIM DS 800-160 MG TABS 1 bid x 14 day start 09-28-13 BACTRIM DS 800-160 MG TABS SULFAMETHOXAZOLE-TRIMETHOPRIM Inactive B-12 100 MCG TABS Take one by mouth daily B-12 100 MCG TABS CYANOCOBALAMIN Inactive GABAPENTIN 100 MG CAPS 1 po bid GABAPENTIN 100 MG CAPS 452568 GABAPENTIN Inactive HYDROCODONE-ACETAMINOPHEN 5-325 MG TABS 1 tab by mouth every 6 hours as needed for pain HYDROCODONE-ACETAMINOPHEN 5-325 MG TABS 903060 HYDROCODONE-ACETAMINOPHEN Inactive CIPRO 500 MG TABS 1 bid x 14 days start 09-28-13 CIPRO 500 MG TABS 880991 CIPROFLOXACIN HCL Inactive ALIGN 4 MG CAPS [...] as needed DICLOFENAC SODIUM 50 MG TBEC 205395 DICLOFENAC SODIUM Inactive TRIAMCINOLONE ACETONIDE 0.1 % OINT Apply to affected areas TID for up to 2 weeks TRIAMCINOLONE ACETONIDE 0.1 % OINT 4851282 TRIAMCINOLONE ACETONIDE Inactive PREDNISONE 20 MG TAB 2 tabs daily for 3 days, 1 tab daily for 3 days, 1/2 tab daily for 2 days PREDNISONE 20 MG TAB 971849 PREDNISONE Inactive PREDNISONE 20 MG TAB 2 tabs daily for 3 days, 1 tab daily for 3 days, 1/2 tab daily for 2 days PREDNISONE 20 MG TAB 622918 PREDNISONE Inactive BACTRIM DS 800-160 MG TABS 1 po BID x 7 days BACTRIM DS 800-160 MG TABS SULFAMETHOXAZOLE-TRIMETHOPRIM Inactive Immunizations Vaccine Administration Date Value Standard Description Seasonal influenza vaccine, injectable, containing preservative, for > 3 years old (Afluria, FluLaval, Fluzone, Fluvirin, Fluarix, Agriflu(>=18 yo)) Fluzone (>3 yrs.) [[id number]] Influenza, seasonal, injectable influenza immunization (Flu Vax) has been administered 02/22/2012 influenza virus vaccine, unspecified formulation Seasonal influenza vaccine, injectable, containing preservative, for > 3 years old (Afluria, FluLaval, Fluzone, Fluvirin, Fluarix, Agriflu(>=18 yo)) Fluzone (>3 yrs.) [[id number]] Influenza, seasonal, injectable Vital Signs Date Name [...] CBC - Chemistry sodium, serum 143 mmol/L 643-044 8962/03/10 potassium, serum 4.9 mmol/L 3.5-5.2 chloride, serum [...] 0.30 mg/dL 0.00-1.00 cholesterol, serum 111 mg/dL 132-984 7014/07/28 triglyceride, serum, fasting 177 mg/dL 30-200 HDL [...] mg/dL Encounters Code Encounter Date Provider Facility CPT-56003 Level 3 Est. Patient 10:20:44 CDT Fab Morales DO [facility] CPT-79373 Level 4 Est. Patient 14:38:57 CDT Tu Landeros MD [facility] CPT-93385 Level 4 Est. Patient 14:27:39 FAGOT HEATER Tu Landeros MD [facility] CPT-97023 Level 4 Est. Patient 09:45:25 CDT Tu Landeros MD [facility] CPT-32700 Level 4 Est. Patient 09:05:20 FAGOT HEATER Tu Landeros MD [facility] CPT-14963 Level 4 Est. Patient 14:09:06 CDT Tu Landeros MD [facility] CPT-93959 Level 3 Est. Patient 13:36:54 CDT Tu Landeros MD [facility] CPT-30021 Level 3 Est. Patient 08:59:14 CDT Tu Landeros MD [facility] CPT-16005 Level 3 Est. Patient 13:48:35 CDT Fab Morales DO [facility] CPT-76924 Level 4 Est. Patient 10:05:48 CDT Tu Landeros MD [facility] CPT-75722 Level 3 Est. Patient 13:38:42 CDT Marek BANKS [facility] CPT-47470 Level 5 Est. Patient 08:08:39 CDT Jerrica FRANCIS [facility] CPT-05673 Level 4 Est. Patient 14:23:38 CDT Tu Landeros MD [facility] CPT-59824 Level 3 Est. Patient 11:44:04 CDT Tu Landeros MD [facility] CPT-55763 Level 3 Est. Patient 11:03:20 FAGOT HEATER Tu Landeros MD [facility] CPT-99896 Level 3 Est. Patient 11:03:14 FAGOT HEATER Tu Landeros MD [facility] CPT-12471 Level 3 Est. Patient 12:42:49 CDT Tu Landeros MD [facility] CPT-35276 Level 3 Est. Patient 11:52:06 CDT Tu Landeros MD [facility] CPT-09008 Level 3 Est. Patient 13:58:11 CDT Tu Landeros MD [facility] CPT-55127 Level 3 Est. Patient 17:50:07 CDT Fab Morales DO [facility] CPT-75161 Level 3 Est. Patient 12:06:29 CDT Elvira Cervantes MD PhD [facility] CPT-12460 Level 3 Est. Patient 15:50:32 CDT Tu Landeros MD [facility] CPT-00828 Level 4 Est. Patient 16:08:29 CDT Tu Landeros MD [facility] CPT-51631 Level 3 Est. Patient 16:04:19 CDT Tu Landeros MD [facility] CPT-27313 Level 3 Est. Patient 11:22:30 FAGOT HEATER Tu Landeros MD [facility] CPT-55700 Level 4 Est. Patient 16:24:02 FAGOT HEATER Tu Landeros MD [facility] CPT-31067 Level 3 Est. Patient 17:21:23 FAGOT HEATER Tu Landeros MD [facility] Procedures Code Procedure Name Date Entry Date Standard Description CPT-JTINJ Asp/Joint Injection 15:51:27 FAGOT HEATER CPT-OV Office Visit 15:52:02 FAGOT HEATER CPT-OV Office Visit 15:45:11 CDT CPT-000 Give Zostavax 14:09:06 CDT CPT-28093 Administration single or combination vaccine inc oral 15 :19:04 CDT CPT-91194 Zoster Vaccine (Zostavax) 15:19:04 CDT CPT-35343 Administration single or combination vaccine inc oral 20 :51:03 CDT CPT-66649 Influenza split virus > age 3 20:51:03 CDT CPT-90846 No Charge Offi Visit 14:52:03 CDT CPT-OV Office Visit 14:57:43 CDT CPT-OV Office Visit 15:22:32 CDT CPT-81841 Administration single or combination vaccine inc oral 11 :33:15 CDT CPT-36337 Influenza split virus > age 3 11:33:15 CDT
--- OUTSIDE RECORDS SUMMARY | 2018-04-25 16:15 | XMS REPORT | Clinical Summary ---
Author Author Admin, SACHI Organization [employer] Address Unknown Phone Unavailable Allergies, Adverse Reactions, [...] MD PhD 2011 INSOMNIA, PERSISTENT ICD-307.42 Inactive uT Landeros MD GASTROENTERITIS ICD-558.9 Inactive Tu Landeros [...] ORAL TABS 1 po BID VENLAFAXINE HCL 46445536245 Active Tu Landeros MD Active GLIMEPIRIDE 1 MG ORAL TABS 1 po qd GLIMEPIRIDE 63419994804 Active Tu Landeros MD Active TRUE METRIX BLOOD GLUCOSE TEST INVITR STRP Test blood sugar BID Dx: E11.9 GLUCOSE BLOOD 90444868880 Delores Landeros MD Active TRUE METRIX AIR GLUCOSE METER W/DEVICE KIT Test blood glucose BID Dx: E11.9 BLOOD GLUCOSE MONITORING SUPPL 34695810111 Active Tu Landeros MD Active TRUETEST TEST INVITR STRP test blood sugar twice daily. DX 250.0 GLUCOSE BLOOD 27108771969 No Longer Active Mirna Stanley LPN Active TRUEDRAW LANCING DEVICE MISC test blood sugar twice daily dx: 250.00 LANCET DEVICES 98238564582 No Longer Active Mirna Stanley LPN Active ENALAPRIL MALEATE 20 MG TABS 2 po qd ENALAPRIL MALEATE 88189458644 Active uT Landeros MD Active SUPER B COMPLEX/VITAMIN C TABS 1 qd B COMPLEX-C 18511004369 No Longer Active Tu Landeros MD Active ASPIRIN EC 81 MG ORAL TBEC 1 po qd ASPIRIN 38422955444 Active Tu Landeros MD Active GLUCOSAMINE 500 MG TABS 2 po qd GLUCOSAMINE Active Tu Landeros MD Active SIMVASTATIN 40 MG TABS 0.5 po qHS SIMVASTATIN 81888844027 Active Tu Landeros MD Active FISH OIL 1000 MG CAPS 1 po qd OMEGA-3 FATTY ACIDS 31152950460 Active Tu Landeros MD Active METFORMIN HCL 1000 MG TABS 1 po BID METFORMIN HCL 88371100424 Active Tu Landeros MD Active KLOR-CON 10 10 MEQ CR-TABS 2 po qd POTASSIUM CHLORIDE 85525486218 Active Tu Landeros MD Active FUROSEMIDE 40 MG TAB 1 po qd FUROSEMIDE 09998956722 Active Tu Landeros MD Active REQUIP 2 MG ORAL TABS 1 po qHS PRN Restless legs ROPINIROLE HCL 15185745407 Active Tu Landeros MD Active GABAPENTIN 100 MG CAPS 1 po BID GABAPENTIN 86114757520 Active Tu Landeros MD Active REQUIP 2 MG TABS Take one tablet at bedtime prn ROPINIROLE HCL 22461515619 No Longer Active Tu Landeros MD Active VENTOLIN HFA 108 (90 BASE) MCG/ACT AERS 1-2 puffs every 4 hours if needed for cough/congestion ALBUTEROL SULFATE 01956373932 No Longer Active Ambika Aden APRN Active ZITHROMAX 250 MG TAB 2 po today, then 1 po q days 2-5 AZITHROMYCIN 64063184754 No Longer Active Miranda Suresh APRN Active FLONASE 50 MCG/ACT SUSP 1 spray each nostril twice daily until bottle empty FLUTICASONE PROPIONATE 27584494530 No Longer Active Tu Landeros MD Active COLACE 100 MG CAP 1 po BID PRN Constipation DOCUSATE SODIUM 27861096334 Active Tu Landeros MD Active TRUERESULT BLOOD GLUCOSE W/DEVICE KIT test blood sugar twice daily dx 250.00 BLOOD GLUCOSE MONITORING SUPPL 35228621929 No Longer Active Tu Landeros MD Active TRUEDRAW LANCING DEVICE MISC Test twice a day dx 250.0 LANCET DEVICES 70198467169 No Longer Active Tu Landeros MD Active PREDNISONE 20 MG TAB 2 tablets once daily for 2 days, then 1 tablet once daily for 2 days PREDNISONE 56126648725 No Longer Active Tu Landeros MD Active DICLOFENAC SODIUM 50 MG TBEC 1 tablet by mouth three times a day as needed DICLOFENAC SODIUM 18647161699 No Longer Active Fab Morales DO Active EMBRACE BLOOD GLUCOSE TEST STRP test blood sugar twice daily DX 250.0 2014 GLUCOSE BLOOD 80943182213 No Longer Active Tu Landeros MD Active TRUETEST TEST STRP test blood sugar three times daily dx: 250.00 GLUCOSE BLOOD 25384088710 No Longer Active Suze Corey VOGEL Active TRUERESULT BLOOD GLUCOSE W/DEVICE KIT use to test blood sugar tid dx: 250.00 BLOOD GLUCOSE MONITORING SUPPL 58887054902 No Longer Active Suze Corey RMA Active ALIGN 4 MG CAPS 1 tid PROBIOTIC PRODUCT 15398921406 No Longer Active Shaun Sy MD Active CIPRO 500 MG TABS 1 bid x 14 days start 09-28-13 CIPROFLOXACIN HCL 47542094782 No Longer Active Shaun Sy MD Active TRAMADOL HCL 50 MG TABS 1-2 tablets every 6 hours as needed for pain TRAMADOL HCL 91330613273 Active Lesli Kellogg APRN Active HYDROCODONE-ACETAMINOPHEN 5-325 MG TABS 1 tab by mouth every 6 hours as needed for pain HYDROCODONE-ACETAMINOPHEN 25222697495 No Longer Active Tu Landeros MD Active OMEPRAZOLE 20 MG CPDR 1 po q a.m. OMEPRAZOLE 10802077634 Active Lesli Kellogg APRN Active GABAPENTIN 100 MG CAPS 1 po bid GABAPENTIN 54703466332 No Longer Active Tu Landeros MD Active B-12 100 MCG TABS Take one by mouth daily CYANOCOBALAMIN 18633148383 No Longer Active Tu Landeros MD Active BACTRIM DS 800-160 MG TABS 1 bid x 14 day start 09-28-13 SULFAMETHOXAZOLE-TRIMETHOPRIM 83686784130 No Longer Active Tu Landeros MD Active CARVEDILOL 12.5 MG TABS 1 po BID CARVEDILOL 24658471823 Active Tu Landeros MD Active TRILIPIX 135 MG CPDR 1 q hs CHOLINE FENOFIBRATE 06985567651 Active Tu Landeros MD Active FENOFIBRATE 145 MG TABS 1 po qd FENOFIBRATE 27149110556 No Longer Active JASPREET Perez Active OMEPRAZOLE 20 MG TBEC 1 PO 30 MIN BEFORE 1ST MEAL OMEPRAZOLE 04800543366 No Longer Active JASPREET Perez Active SIMVASTATIN 40 MG TABS Take one by mouth daily SIMVASTATIN 17016240657 No Longer Active JASPREET Perez Active VENLAFAXINE HCL 75 MG TABS 1 po BID VENLAFAXINE HCL 98415081449 No Longer Active [place] Norma, RMA Active CIPRO 500 MG TAB 1 tablet by mouth twice daily CIPROFLOXACIN HCL 49562758669 No Longer Active Tu Landeros MD Active VENLAFAXINE HCL 37.5 MG TABS 1 po BID VENLAFAXINE HCL 75210913568 No Longer Active Suze Nicole RMA Active LAMISIL 250 MG TAB 1 po qd TERBINAFINE HCL 19100696343 No Longer Active Tu Landeros MD Active LORTAB 5 5-500 MG TABS 1/2 to 1 tablet by mouth every 4 hours as needed for pain HYDROCODONE-ACETAMINOPHEN 37534614962 No Longer Active Tu Landeros MD Active HYDROCODONE-ACETAMINOPHEN 5-500 MG TABS take one po Q 4-6 hours prn HYDROCODONE-ACETAMINOPHEN 54954360899 No Longer Active Tu Landeros MD Active BACTRIM DS 800-160 MG TABS 1 po BID x 7 days SULFAMETHOXAZOLE-TRIMETHOPRIM 87368150882 No Longer Active Tu Landeros MD Active VENLAFAXINE HCL 75 MG TABS 1 po BID VENLAFAXINE HCL 89415215138 No Longer Active Elvira Cervantes MD PhD Active TRAMADOL HCL 50 MG TABS 1 tablets every 6 hours as needed for pain TRAMADOL HCL 50855037938 No Longer Active Tu Landeros MD Active ACCU-CHEK FASTCLIX LANCETS MISC Use to check bloodsugar three times daily as needed LANCETS 15518873018 No Longer Active Tu Landeros MD Active ACCU-CHEK KEYONA PLUS STRP Use for testing bloodsugars three times daily as needed GLUCOSE BLOOD 73851548913 No Longer Active Tu Landeros MD Active ACCU-CHEK KEYONA PLUS W/DEVICE KIT Use for testing bloodsugars three times daily as needed BLOOD GLUCOSE MONITORING SUPPL 31247172202 No Longer Active Tu Landeros MD Active SPIRONOLACTONE 25 MG TAB 0.5 tablet by mouth daily SPIRONOLACTONE 11324549439 No Longer Active Tu Landeros MD Active ALPRAZOLAM 0.5 MG TABS 1 tab every 6hrs as needed ALPRAZOLAM 71241494157 No Longer Active Tu Landeros MD Active AUGMENTIN 875-125 MG TAB 1 tab by mouth twice daily with food AMOXICILLIN-POT CLAVULANATE 28842595185 No Longer Active Tu Landeros MD Active PREDNISONE 20 MG TAB 2 tabs daily for 3 days, 1 tab daily for 3 days, 1/2 tab daily for 2 days PREDNISONE 10881723271 No Longer Active Tu Landeros MD Active XANAX 0.5 MG TABS 1 tablet every 6 hrs prn ALPRAZOLAM 28878033564 No Longer Active Tu Landeros MD Active PREDNISONE 20 MG TAB 2 tabs daily for 3 days, 1 tab daily for 3 days, 1/2 tab daily for 2 days PREDNISONE 57831062425 No Longer Active Tu Landeros MD Active TRIAMCINOLONE ACETONIDE 0.1 % OINT Apply to affected areas TID for up to 2 weeks TRIAMCINOLONE ACETONIDE 43513065813 No Longer Active Tu Landeros MD Active LORTAB 5 5-500 MG TABS 1/2 to 1 tablet by mouth every 4 hours as needed for pain HYDROCODONE-ACETAMINOPHEN 60637366172 No Longer Active Tu Landeros MD Active MULTIVITAMINS TABS Take one by mouth daily MULTIPLE VITAMIN 51861798283 No Longer Active Tu Landeros MD Active MELATONIN 5 MG TABS Take one by mouth daily MELATONIN 25784835590 No Longer Active Tu Landeros MD Active SOMA 350 MG TAB 1 po q 6 hours prn spasm CARISOPRODOL 87634738387 No Longer Active Tu Landeros MD Active MECLIZINE HCL 25 MG CHEW TAB 1 four times a day as needed for dizziness 08/05 MECLIZINE HCL 91260429182 No Longer Active Fab Morales DO Active ANGEL NIKKOEZAdrianna 2 TEST DISK test tid prn GLUCOSE BLOOD 80952108425 No Longer Active Negra Tyler MICHAEL Active REGLAN 10 MG TAB 1 po TID PRN Nausea METOCLOPRAMIDE HCL 96147459413 No Longer Active Tu Landeros MD Active METFORMIN HCL 500 MG TABS 1 PO BID METFORMIN HCL 42986702916 No Longer Active Tu Landeros MD Active AMBIEN 10 MG TAB 1 tab by mouth at bedtime as needed for sleep ZOLPIDEM TARTRATE 64348996212 No Longer Active Tu Landeros MD Active FLUOXETINE HCL 40 MG CAPS 1 po q day FLUOXETINE HCL 49926415035 No Longer Active Mayra Hockessin Active TRILIPIX 135 MG CPDR 1 po qd CHOLINE FENOFIBRATE 12517045894 No Longer Active Tu Landeros MD Active AMBIEN 10 MG TAB 1 tab by mouth at bedtime as needed for sleep AMBIEN 10 MG TAB 768657 ZOLPIDEM TARTRATE Inactive METFORMIN HCL 500 MG TABS 1 PO BID METFORMIN HCL 500 MG TABS 827582 METFORMIN HCL Inactive REGLAN 10 MG TAB 1 po TID PRN Nausea REGLAN 10 MG TAB 461349 METOCLOPRAMIDE HCL Inactive MECLIZINE HCL 25 MG CHEW TAB 1 four times a day as needed for dizziness 08/05 MECLIZINE HCL 25 MG CHEW TAB 488169 MECLIZINE HCL Inactive SOMA 350 MG TAB 1 po q 6 hours prn spasm SOMA 350 MG TAB 119765 CARISOPRODOL Inactive MELATONIN 5 MG TABS Take one by mouth daily MELATONIN 5 MG TABS 710017 MELATONIN Inactive MULTIVITAMINS TABS Take one by mouth daily MULTIVITAMINS TABS MULTIPLE VITAMIN Inactive LORTAB 5 5-500 MG TABS 1/2 to 1 tablet by mouth every 4 hours as needed for pain LORTAB 5 5-500 MG TABS HYDROCODONE- ACETAMINOPHEN Inactive XANAX 0.5 MG TABS 1 tablet every 6 hrs prn XANAX 0.5 MG TABS 440655 ALPRAZOLAM Inactive AUGMENTIN 875-125 MG TAB 1 tab by mouth twice daily with food AUGMENTIN 875-125 MG TAB 780473 AMOXICILLIN-POT CLAVULANATE Inactive ALPRAZOLAM 0.5 MG TABS 1 tab every 6hrs as needed ALPRAZOLAM 0.5 MG TABS 710923 ALPRAZOLAM Inactive SPIRONOLACTONE 25 MG TAB 0.5 tablet by mouth daily SPIRONOLACTONE 25 MG TAB 922634 SPIRONOLACTONE Inactive ACCU-CHEK KEYONA PLUS W/DEVICE KIT Use for testing bloodsugars three times daily as needed ACCU-CHEK KEYONA PLUS W/DEVICE KIT BLOOD GLUCOSE MONITORING SUPPL Inactive ACCU-CHEK KEYONA PLUS STRP Use for testing bloodsugars three times daily as needed ACCU-CHEK KEYONA PLUS STRP GLUCOSE BLOOD Inactive ACCU-CHEK FASTCLIX LANCETS MISC Use to check bloodsugar three times daily as needed ACCU-CHEK FASTCLIX LANCETS MISC 85863687032 LANCETS Inactive TRAMADOL HCL 50 MG TABS 1 tablets every 6 hours as needed for pain TRAMADOL HCL 50 MG TABS 668312 TRAMADOL HCL Inactive VENLAFAXINE HCL 75 MG TABS 1 po BID VENLAFAXINE HCL 75 MG TABS 228609 VENLAFAXINE HCL Inactive HYDROCODONE-ACETAMINOPHEN 5-500 MG TABS take one po Q 4-6 hours prn HYDROCODONE-ACETAMINOPHEN 5-500 MG TABS HYDROCODONE- ACETAMINOPHEN Inactive LORTAB 5 5-500 MG TABS 1/2 to 1 tablet by mouth every 4 hours as needed for pain LORTAB 5 5-500 MG TABS HYDROCODONE- ACETAMINOPHEN Inactive LAMISIL 250 MG TAB 1 po qd LAMISIL 250 MG TAB 157939 TERBINAFINE HCL Inactive VENLAFAXINE HCL 37.5 MG TABS 1 po BID VENLAFAXINE HCL 37.5 MG TABS 020890 VENLAFAXINE HCL Inactive CIPRO 500 MG TAB 1 tablet by mouth twice daily CIPRO 500 MG TAB 839790 CIPROFLOXACIN HCL Inactive VENLAFAXINE HCL 75 MG TABS 1 po BID VENLAFAXINE HCL 75 MG TABS 216852 VENLAFAXINE HCL Inactive SIMVASTATIN 40 MG TABS Take one by mouth daily SIMVASTATIN 40 MG TABS 366272 SIMVASTATIN Inactive OMEPRAZOLE 20 MG TBEC 1 PO 30 MIN BEFORE 1ST MEAL OMEPRAZOLE 20 MG TBEC 623893 OMEPRAZOLE Inactive FENOFIBRATE 145 MG TABS 1 po qd FENOFIBRATE 145 MG TABS 866553 FENOFIBRATE Inactive BACTRIM DS 800-160 MG TABS 1 bid x 14 day start 09-28-13 BACTRIM DS 800-160 MG TABS 482273 SULFAMETHOXAZOLE-TRIMETHOPRIM Inactive B-12 100 MCG TABS Take one by mouth daily B-12 100 MCG TABS CYANOCOBALAMIN Inactive GABAPENTIN 100 MG CAPS 1 po bid GABAPENTIN 100 MG CAPS 355408 GABAPENTIN Inactive HYDROCODONE-ACETAMINOPHEN 5-325 MG TABS 1 tab by mouth every 6 hours as needed for pain HYDROCODONE-ACETAMINOPHEN 5-325 MG TABS 758598 HYDROCODONE-ACETAMINOPHEN Inactive CIPRO 500 MG TABS 1 bid x 14 days start 09-28-13 CIPRO 500 MG TABS 793670 CIPROFLOXACIN HCL Inactive ALIGN 4 MG CAPS [...] as needed DICLOFENAC SODIUM 50 MG TBEC 613918 DICLOFENAC SODIUM Inactive PREDNISONE 20 MG TAB 2 tablets once daily for 2 days, then 1 tablet once daily for 2 days PREDNISONE 20 MG TAB 268746 PREDNISONE Inactive TRUEDRAW LANCING DEVICE MISC Test twice a day dx 250.0 TRUEDRAW LANCING DEVICE MISC LANCET DEVICES Inactive TRUERESULT BLOOD GLUCOSE W/DEVICE KIT test blood sugar twice daily dx 250.00 TRUERESULT BLOOD GLUCOSE W/DEVICE KIT BLOOD GLUCOSE MONITORING SUPPL Inactive FLONASE 50 MCG/ACT SUSP 1 spray each nostril twice daily until bottle empty FLONASE 50 MCG/ACT SUSP 2042639 FLUTICASONE PROPIONATE Inactive VENTOLIN HFA 108 (90 BASE) MCG/ACT AERS 1-2 puffs every 4 hours if needed for cough/congestion VENTOLIN HFA 108 (90 BASE) MCG/ACT AERS ALBUTEROL SULFATE Inactive REQUIP 2 MG TABS Take one tablet at bedtime prn REQUIP 2 MG TABS 771865 ROPINIROLE HCL Inactive SUPER B COMPLEX/VITAMIN C TABS 1 qd SUPER B COMPLEX/ VITAMIN C TABS 18677419861 B COMPLEX-C Inactive TRUEDRAW LANCING DEVICE MISC test blood sugar twice daily dx: 250.00 TRUEDRAW LANCING DEVICE MISC LANCET DEVICES Inactive TRUETEST TEST INVITR STRP test blood sugar twice daily. DX 250.0 TRUETEST TEST INVITR STRP GLUCOSE BLOOD Inactive TRIAMCINOLONE ACETONIDE 0.1 % OINT Apply to affected areas TID for up to 2 weeks TRIAMCINOLONE ACETONIDE 0.1 % OINT 0557224 TRIAMCINOLONE ACETONIDE Inactive PREDNISONE 20 MG TAB 2 tabs daily for 3 days, 1 tab daily for 3 days, 1/2 tab daily for 2 days PREDNISONE 20 MG TAB 392964 PREDNISONE Inactive PREDNISONE 20 MG TAB 2 tabs daily for 3 days, 1 tab daily for 3 days, 1/2 tab daily for 2 days PREDNISONE 20 MG TAB 770199 PREDNISONE Inactive BACTRIM DS 800-160 MG TABS 1 po BID x 7 days BACTRIM DS 800-160 MG TABS 087086 SULFAMETHOXAZOLE-TRIMETHOPRIM Inactive ZITHROMAX 250 MG TAB 2 po today, then 1 po q days 2-5 ZITHROMAX 250 MG TAB 9317914 AZITHROMYCIN Inactive Advance Directives Directive Description Start Date DISCUSSED WITH PATIENT -- NO DECISION MADE Immunizations Vaccine Administration Date Value Standard Description Seasonal influenza vaccine, injectable, containing preservative, for > 3 years old (Afluria, FluLaval, Fluzone, Fluvirin, Fluarix, Agriflu(>=18 yo)) Fluzone (>3 yrs.) [CUP534] Influenza, seasonal, injectable influenza immunization (Flu Vax) has been administered 02/22/2012 influenza virus vaccine, unspecified formulation Seasonal influenza vaccine, injectable, containing preservative, for > 3 years old (Afluria, FluLaval, Fluzone, Fluvirin, Fluarix, Agriflu(>=18 yo)) Fluzone (>3 yrs.) [EPR732] Influenza, seasonal, injectable Vital Signs Date Name [...] Magnesium - Chemistry sodium, serum 143 mmol/L 159-876 6266/01/10 carbon dioxide, venous blood 28.0 mmol/L 21.0-32.0 potassium, serum 4.5 mmol/L 3.5-5.2 chloride, serum 104 mmol/L 98-107 blood glucose 158 mg/dL 65-110 urea nitrogen, blood 23 mg/dL 7-18 creatinine, serum 1.06 mg/dL 0.55-1.30 alanine aminotransferase (SGPT), serum 42 U/L 12-78 aspartate aminotransferase (SGOT), serum 32 U/L 15-37 calcium, serum 9.3 mg/dL 8.5-10.1 bilirubin, serum, total 0.20 mg/dL 0.00-1.00 cholesterol, serum 177 mg/dL 601-385 6083/01/10 triglyceride, serum, fasting 320 mg/dL 30-200 HDL cholesterol, serum 46 mg/dL 32-96 LDL cholesterol, serum 67 mg/dL 0-130 Lab Report: COMPREHENSIVE METABOLIC PANEL, LIPID PANEL, HEMOGLOBIN A1c - Chemistry cholesterol, serum 135 mg/dL 331-023 9150/05/17 HDL cholesterol, serum 41 mg/dL > OR=46 triglyceride, serum, fasting 206 mg/dL <150 LDL cholesterol, serum 53 MG/DL (CALC) mg/dL <130 cholesterol/HDL ratio, serum 3.3 (calc) < OR=5.0 Lab Report: HGBA1C - Chemistry hemoglobin A1C, blood, as % of total hemoglobin 7.4 % 4.3-6.0 sodium, serum 140 mmol/L 966-296 4369/09/07 potassium, serum 4.3 mmol/L 3.5-5.2 chloride, serum [...] <30 Encounters Code Encounter Date Provider Facility CPT-02285 Level 4 Est. Patient 14:29:21 CDT Tu Landeros MD [facility] CPT-94482 Level 4 Est. Patient 09:08:17 ANIMAL DAYCARE PROVIDER Tu Landeros MD [facility] CPT-62879 Level 4 Est. Patient 14:40:19 CDT Tu Landeros MD [facility] CPT-26597 Level 4 Est. Patient 14:06:04 ANIMAL DAYCARE PROVIDER Tu Landeros MD [facility] CPT-50973 Level 3 Est. Patient 14:05:18 ANIMAL DAYCARE PROVIDER Tu Landeros MD [facility] CPT-13971 Level 3 Est. Patient 10:06:54 ANIMAL DAYCARE PROVIDER Mirand[place]inston Suresh APRN [facility] CPT-85807 Level 4 Est. Patient 13:50:18 ANIMAL DAYCARE PROVIDER Tu Landeros MD [facility] CPT-53471 Level 3 Est. Patient 10:30:04 CDT Tu Landeros MD [facility] CPT-62246 Level 4 Est. Patient 11:03:38 CDT Tu Landeros MD [facility] CPT-46277 Level 3 Est. Patient 10:20:44 CDT Fab Morales DO [facility] CPT-17539 Level 4 Est. Patient 14:38:57 CDT Tu Landeros MD [facility] CPT-03362 Level 4 Est. Patient 14:27:39 ANIMAL DAYCARE PROVIDER Tu Landeros MD [facility] CPT-50706 Level 4 Est. Patient 09:45:25 CDT Tu Landeros MD [facility] CPT-93594 Level 4 Est. Patient 09:05:20 ANIMAL DAYCARE PROVIDER Tu Landeros MD [facility] CPT-41229 Level 4 Est. Patient 14:09:06 CDT Tu Landeros MD [facility] CPT-80046 Level 3 Est. Patient 13:36:54 CDT Tu Landeros MD [facility] CPT-55310 Level 3 Est. Patient 08:59:14 CDT Tu Landeros MD [facility] CPT-23013 Level 3 Est. Patient 13:48:35 CDT Fab Morales DO [facility] CPT-41715 Level 4 Est. Patient 10:05:48 CDT Tu Landeros MD [facility] CPT-74844 Level 3 Est. Patient 13:38:42 CDT Marek BANKS [facility] CPT-41299 Level 5 Est. Patient 08:08:39 CDT Piyushrichajanelle Dawsontay FRANCIS [facility] CPT-34976 Level 4 Est. Patient 14:23:38 CDT Tu Landeros MD [facility] CPT-68700 Level 3 Est. Patient 11:44:04 CDT Tu Landeros MD [facility] CPT-39063 Level 3 Est. Patient 11:03:20 ANIMAL DAYCARE PROVIDER Tu Landeros MD [facility] CPT-24245 Level 3 Est. Patient 11:03:14 ANIMAL DAYCARE PROVIDER Tu Landeros MD [facility] CPT-41904 Level 3 Est. Patient 12:42:49 CDT Tu Landeros MD [facility] CPT-98010 Level 3 Est. Patient 11:52:06 CDT Tu Landeros MD [facility] CPT-57386 Level 3 Est. Patient 13:58:11 CDT Tu Landeros MD [facility] CPT-47404 Level 3 Est. Patient 17:50:07 CDT Fab Morales DO [facility] CPT-42430 Level 3 Est. Patient 12:06:29 CDT Elvira Cervantes MD PhD [facility] CPT-73548 Level 3 Est. Patient 15:50:32 CDT Tu Landeros MD [facility] CPT-22811 Level 4 Est. Patient 16:08:29 CDT Tu Landeros MD [facility] CPT-95721 Level 3 Est. Patient 16:04:19 CDT Tu Landeros MD [facility] CPT-69016 Level 3 Est. Patient 11:22:30 ANIMAL DAYCARE PROVIDER Tu Landeros MD [facility] CPT-00109 Level 4 Est. Patient 16:24:02 ANIMAL DAYCARE PROVIDER Tu Landeros MD [facility] CPT-39170 Level 3 Est. Patient 17:21:23 ANIMAL DAYCARE PROVIDER Tu Landeros MD [facility] Procedures Code Procedure Name Date Entry Date Standard Description CPT-G0009 Administration of Pneumococcal Vaccine 15:08:26 CDT CPT-13407 Prevnar 13 Intramuscular Suspension 15:08:26 CDT 10/08 CPT-G0439 [facility] Annual Wellness Exam 14:29:22 CDT CPT-35122 Venipuncture Draw Fee 13:15:35 CDT CPT-06712 Magnesium - LAB USE ONLY 11:14:20 ANIMAL DAYCARE PROVIDER CPT-56570 Lipid - LAB USE ONLY 11:14:20 ANIMAL DAYCARE PROVIDER CPT-17594 HGBA1C - LAB USE ONLY 11:14:20 ANIMAL DAYCARE PROVIDER CPT-32448 CMP - LAB USE ONLY 11:14:19 ANIMAL DAYCARE PROVIDER CPT-35346 CBC - LAB USE ONLY 11:14:19 ANIMAL DAYCARE PROVIDER CPT-82748 Venipuncture Draw Fee 11:14:18 ANIMAL DAYCARE PROVIDER CPT-63914 First Vx - Ix admin for Medicare patients 16:46:52 CDT CPT-90540 Fluzone Preservative Free Intramuscular Suspension 16:46 :51 CDT CPT-26627 CBC - LAB USE ONLY 17:14:46 CDT CPT-98550 HGBA1C - LAB USE ONLY 17:14:46 CDT CPT-05910 Venipuncture Draw Fee 17:14:46 CDT CPT-G0438 Initial Annual Wellness Exam 14:13:04 CDT CPT-32320 Breathing Tx 10:06:54 ANIMAL DAYCARE PROVIDER CPT-29827 Postop F/U Visit 10:02:45 CDT CPT-LR Lesion Removal 09:02:56 CDT CPT-JTINJ Asp/Joint Injection 15:51:27 ANIMAL DAYCARE PROVIDER CPT-OV Office Visit 15:52:02 ANIMAL DAYCARE PROVIDER CPT-OV Office Visit 15:45:11 CDT CPT-000 Give Zostavax 14:09:06 CDT CPT-24232 Administration single or combination vaccine inc oral 15 :19:04 CDT CPT-91932 Zoster Vaccine (Zostavax) 15:19:04 CDT CPT-41326 Administration single or combination vaccine inc oral 20 :51:03 CDT CPT-87825 Influenza split virus > age 3 20:51:03 CDT CPT-69280 No Charge Offi Visit 14:52:03 CDT CPT-OV Office Visit 14:57:43 CDT CPT-OV Office Visit 15:22:32 CDT CPT-56624 Administration single or combination vaccine inc oral 11 :33:15 CDT CPT-66119 Influenza split virus > age 3 11:33:15 CDT
--- OUTSIDE RECORDS SUMMARY | 2018-04-25 16:17 | XMS REPORT | Clinical Summary ---
Author Author Admin, SACHI Organization [facility] Address Unknown Phone Unavailable Allergies, Adverse Reactions, [...] OTHER NONSPECIFIC SKIN ERUPTION 782.1 Resolved Tu Landerso MD Rash and other nonspecific skin eruption [...] then 1 po qd x 4 AZITHROMYCIN 75013541240 Active Tu Landeros MD Active GUAIFENESIN ER 600 MG ORAL TABLET EXTENDED RELEASE 12 HOUR 1 twice a day as needed for congestion GUAIFENESIN 40120238342 No Longer Active Tu Landeros MD Active PREDNISONE 20 MG ORAL TABLET 2 po qd x 5 days PREDNISONE 42958251454 No Longer Active Tu Landeros MD Active PROMETHAZINE-CODEINE 6.25-10 MG/5ML ORAL SYRUP 5ml po q6hr PRN Cough PROMETHAZINE-CODEINE 24947385523 Active Tu Landeros MD Active FLUTICASONE PROPIONATE 50 MCG/ACT NASAL SUSPENSION 2 sprays/nostril qd PRN Congestion/Allergies FLUTICASONE PROPIONATE 94892381330 Active Tu Landeros MD Active NASONEX 50 MCG/ACT NASAL SUSPENSION 2 actuations in each nostril q day 07/15 MOMETASONE FUROATE 12246624362 No Longer Active Tu Landeros MD Active MAGNESIUM OXIDE 400 MG ORAL TABLET 1 po BID MAGNESIUM OXIDE 17172960232 Active Tu Landeros MD Active SIMVASTATIN 20 MG ORAL TABLET 0.5 po qHS SIMVASTATIN 77772705242 Active Tu Landeros MD Active DICLOFENAC SODIUM 75 MG ORAL TABLET DELAYED RELEASE 1 po BID PRN Pain DICLOFENAC SODIUM 24396039963 No Longer Active Tu Landeros MD Active GABAPENTIN 100 MG ORAL CAPSULE 1 po TID GABAPENTIN 35190719995 Active Tu Landeros MD Active DICLOFENAC SODIUM 50 MG ORAL TABLET DELAYED RELEASE 1 po BID PRN Pain DICLOFENAC SODIUM 83852432802 No Longer Active Tu Landeros MD Active CYCLOBENZAPRINE HCL 10 MG ORAL TABLET 1 po TID PRN Muscle Spasm CYCLOBENZAPRINE HCL 97100377564 No Longer Active Tu Landeros MD Active INVOKANA 100 MG ORAL TABLET 1 po qd CANAGLIFLOZIN 74916191625 Active Tu Landeros MD Active GLIPIZIDE 5 MG ORAL TABLET 1 po qd GLIPIZIDE 71506396419 No Longer Active Tu Landeros MD Active VENLAFAXINE HCL 75 MG ORAL TABLET 1 po BID VENLAFAXINE HCL 85655229639 Active Tu Landeros MD Active GLIMEPIRIDE 1 MG ORAL TABLET 1 po qd GLIMEPIRIDE 84065347322 No Longer Active Tu Landeros MD Active TRUE METRIX BLOOD GLUCOSE TEST IN VITRO STRIP Test blood sugar BID Dx: E11.9 GLUCOSE BLOOD 56581722422 Active Tu Landeros MD Active TRUE METRIX AIR GLUCOSE METER w/Device KIT Test blood glucose BID Dx: E11.9 BLOOD GLUCOSE MONITORING SUPPL 54889106528 Active Tu Landeros MD Active TRUETEST TEST IN VITRO STRIP test blood sugar twice daily. DX 250.0 GLUCOSE BLOOD 89395207097 No Longer Active Mirna Stanley LPN Active TRUEDRAW LANCING DEVICE test blood sugar twice daily dx: 250.00 LANCET DEVICES 71221694153 No Longer Active Mirna Stanley LPN Active ENALAPRIL MALEATE 20 MG ORAL TABLET 2 po qd ENALAPRIL MALEATE 70767620441 Active Tu Landeros MD Active SUPER B COMPLEX/VITAMIN C ORAL TABLET 1 qd B COMPLEX- C 30883944100 No Longer Active Tu Landeors MD Active ASPIRIN EC 81 MG ORAL TABLET DELAYED RELEASE 1 po qd ASPIRIN 77691117682 Active Tu Landeros MD Active GLUCOSAMINE 500 MG TABS 2 po qd GLUCOSAMINE Active Tu Landeros MD Active FISH OIL 1000 MG ORAL CAPSULE 1 po qd OMEGA-3 FATTY ACIDS 42477297867 Active Tu Landeros MD Active METFORMIN HCL 1000 MG ORAL TABLET 1 po BID METFORMIN HCL 99084386907 Active Tu Landeros MD Active KLOR-CON 10 10 MEQ ORAL TABLET EXTENDED RELEASE 2 po qd POTASSIUM CHLORIDE 03313136035 Active Tu Landeros MD Active FUROSEMIDE 40 MG ORAL TABLET 1 po qd FUROSEMIDE 26751659655 Active Tu Landeros MD Active REQUIP 2 MG ORAL TABLET 1 po qHS PRN Restless legs ROPINIROLE HCL 39487137151 Active Tu Landeros MD Active REQUIP 2 MG ORAL TABLET Take one tablet at bedtime prn ROPINIROLE HCL 42770695035 No Longer Active Tu Landeros MD Active VENTOLIN HFA 108 (90 Base) MCG/ACT INHALATION AEROSOL SOLUTION 1-2 puffs every 4 hours if needed for cough/congestion ALBUTEROL SULFATE 87652006500 No Longer Active Ambika Aden APRN Active ZITHROMAX 250 MG ORAL TABLET 2 po today, then 1 po q days 2-5 AZITHROMYCIN 10685262426 No Longer Active Miranda Farah APRN Active FLONASE 50 MCG/ACT NASAL SUSPENSION 1 spray each nostril twice daily until bottle empty FLUTICASONE PROPIONATE 16530488990 No Longer Active Tu Landeros MD Active COLACE 100 MG ORAL CAPSULE 1 po BID PRN Constipation DOCUSATE SODIUM 94763867492 Active Tu Landeros MD Active TRUERESULT BLOOD GLUCOSE w/Device KIT test blood sugar twice daily dx 250.00 BLOOD GLUCOSE MONITORING SUPPL 10944186647 No Longer Active Tu Landeros MD Active TRUEDRAW LANCING DEVICE Test twice a day dx 250.0 LANCET DEVICES 10883668918 No Longer Active Tu Landeros MD Active PREDNISONE 20 MG ORAL TABLET 2 tablets once daily for 2 days, then 1 tablet once daily for 2 days PREDNISONE 35613020134 No Longer Active Tu Landeros MD Active DICLOFENAC SODIUM 50 MG ORAL TABLET DELAYED RELEASE 1 tablet by mouth three times a day as needed DICLOFENAC SODIUM 96821673638 No Longer Active Fab Morales DO Active EMBRACE BLOOD GLUCOSE TEST IN VITRO STRIP test blood sugar twice daily DX 250.0 GLUCOSE BLOOD 72945073913 No Longer Active Tu Landeros MD Active TRUETEST TEST IN VITRO STRIP test blood sugar three times daily dx: 250.00 GLUCOSE BLOOD 70510000912 No Longer Active Suzebianca Nicole RMA Active TRUERESULT BLOOD GLUCOSE w/Device KIT use to test blood sugar tid dx: 250.00 BLOOD GLUCOSE MONITORING SUPPL 23658113834 No Longer Active Suze Corey RMA Active ALIGN 4 MG ORAL CAPSULE 1 tid PROBIOTIC PRODUCT 54906440979 No Longer Active Shaun Sy MD Active CIPRO 500 MG ORAL TABLET 1 bid x 14 days start 09-28-13 CIPROFLOXACIN HCL 63954946920 No Longer Active Shaun Sy MD Active TRAMADOL HCL 50 MG ORAL TABLET 1-2 tablets every 6 hours as needed for pain TRAMADOL HCL 85290126447 Active Tu Landeros MD Active HYDROCODONE-ACETAMINOPHEN 5-325 MG ORAL TABLET 1 tab by mouth every 6 hours as needed for pain HYDROCODONE-ACETAMINOPHEN 80035281183 No Longer Active Tu Landeros MD Active OMEPRAZOLE 20 MG ORAL CAPSULE DELAYED RELEASE 1 po q a.m. OMEPRAZOLE 09624198046 Active Fab Morales DO Active GABAPENTIN 100 MG ORAL CAPSULE 1 po bid GABAPENTIN 11467911964 No Longer Active Tu Landeros MD Active B-12 100 MCG ORAL TABLET Take one by mouth daily CYANOCOBALAMIN 95485088833 No Longer Active Tu Landeros MD Active BACTRIM DS 800-160 MG ORAL TABLET 1 bid x 14 day start 09-28-13 SULFAMETHOXAZOLE-TRIMETHOPRIM 32795025658 No Longer Active Tu Landeros MD Active CARVEDILOL 12.5 MG ORAL TABLET 1 po BID CARVEDILOL 61324719398 Active Tu Landeros MD Active TRILIPIX 135 MG ORAL CAPSULE DELAYED RELEASE 1 q hs CHOLINE FENOFIBRATE 85292358156 Active Tu Landeros MD Active FENOFIBRATE 145 MG ORAL TABLET 1 po qd FENOFIBRATE 90510887575 No Longer Active JASPREET Perez Active OMEPRAZOLE 20 MG ORAL TABLET DELAYED RELEASE 1 PO 30 MIN BEFORE 1ST MEAL 2010 OMEPRAZOLE 54168958284 No Longer Active JASPREET Perez Active SIMVASTATIN 40 MG ORAL TABLET Take one by mouth daily SIMVASTATIN 01011729526 No Longer Active JASPREET Perez Active VENLAFAXINE HCL 75 MG ORAL TABLET 1 po BID VENLAFAXINE HCL 17213740967 No Longer Active JASPREET Perez Active CIPRO 500 MG ORAL TABLET 1 tablet by mouth twice daily CIPROFLOXACIN HCL 24292072745 No Longer Active Tu Landeros MD Active VENLAFAXINE HCL 37.5 MG ORAL TABLET 1 po BID VENLAFAXINE HCL 40288354282 No Longer Active Suze VOGEL Active LAMISIL 250 MG ORAL TABLET 1 po qd TERBINAFINE HCL 35900423410 No Longer Active Tu Landeros MD Active LORTAB 5-500 MG ORAL TABLET 1/2 to 1 tablet by mouth every 4 hours as needed for pain HYDROCODONE-ACETAMINOPHEN 37052419546 No Longer Active Tu Landeros MD Active HYDROCODONE-ACETAMINOPHEN 5-500 MG ORAL TABLET take one po Q 4-6 hours prn HYDROCODONE-ACETAMINOPHEN 39838412302 No Longer Active Tu Landeros MD Active BACTRIM DS 800-160 MG ORAL TABLET 1 po BID x 7 days SULFAMETHOXAZOLE-TRIMETHOPRIM 95752284805 No Longer Active Tu Landeros MD Active VENLAFAXINE HCL 75 MG ORAL TABLET 1 po BID VENLAFAXINE HCL 50874360176 No Longer Active Elvira Cervantes MD PhD Active TRAMADOL HCL 50 MG ORAL TABLET 1 tablets every 6 hours as needed for pain TRAMADOL HCL 93653061187 No Longer Active Tu Landeros MD Active ACCU-CHEK FASTCLIX LANCETS Use to check bloodsugar three times daily as needed LANCETS 49414859257 No Longer Active Tu Landeros MD Active ACCU-CHEK KEYONA PLUS IN VITRO STRIP Use for testing bloodsugars three times daily as needed GLUCOSE BLOOD 49447618597 No Longer Active Tu Landeros MD Active ACCU-CHEK KEYONA PLUS w/Device KIT Use for testing bloodsugars three times daily as needed BLOOD GLUCOSE MONITORING SUPPL 25165890816 No Longer Active Tu Landeros MD Active SPIRONOLACTONE 25 MG ORAL TABLET 0.5 tablet by mouth daily 09/09 SPIRONOLACTONE 97266162525 No Longer Active Tu Landeros MD Active ALPRAZOLAM 0.5 MG ORAL TABLET 1 tab every 6hrs as needed ALPRAZOLAM 34656793180 No Longer Active Tu Landeros MD Active AUGMENTIN 875-125 MG ORAL TABLET 1 tab by mouth twice daily with food AMOXICILLIN-POT CLAVULANATE 71183983591 No Longer Active Tu Landeros MD Active PREDNISONE 20 MG ORAL TABLET 2 tabs daily for 3 days, 1 tab daily for 3 days, 1/2 tab daily for 2 days PREDNISONE 26086675738 No Longer Active Tu Landeros MD Active XANAX 0.5 MG ORAL TABLET 1 tablet every 6 hrs prn ALPRAZOLAM 89908684063 No Longer Active Tu Landeros MD Active PREDNISONE 20 MG ORAL TABLET 2 tabs daily for 3 days, 1 tab daily for 3 days, 1/2 tab daily for 2 days PREDNISONE 15576309684 No Longer Active Tu Landeros MD Active TRIAMCINOLONE ACETONIDE 0.1 % EXTERNAL OINTMENT Apply to affected areas TID for up to 2 weeks TRIAMCINOLONE ACETONIDE 37474643967 No Longer Active Tu Landeros MD Active LORTAB 5-500 MG ORAL TABLET 1/2 to 1 tablet by mouth every 4 hours as needed for pain HYDROCODONE-ACETAMINOPHEN 12329025787 No Longer Active Tu Landeros MD Active MULTIVITAMINS TABS Take one by mouth daily MULTIPLE VITAMIN 64621633859 No Longer Active Tu Landeros MD Active MELATONIN 5 MG ORAL TABLET Take one by mouth daily MELATONIN 33738536090 No Longer Active Tu Landeros MD Active SOMA 350 MG ORAL TABLET 1 po q 6 hours prn spasm CARISOPRODOL 15232257141 No Longer Active Tu Landeros MD Active MECLIZINE HCL 25 MG ORAL TABLET CHEWABLE 1 four times a day as needed for dizziness MECLIZINE HCL 10845460688 No Longer Active Fab Morales DO Active ANGEL BREEZE 2 TEST IN VITRO DISK test tid prn GLUCOSE BLOOD 23475702897 No Longer Active Negra Scott RN Active REGLAN 10 MG ORAL TABLET 1 po TID PRN Nausea METOCLOPRAMIDE HCL 57597275738 No Longer Active Tu Landeros MD Active METFORMIN HCL 500 MG ORAL TABLET 1 PO BID METFORMIN HCL 68418466010 No Longer Active Tu Landeros MD Active AMBIEN 10 MG ORAL TABLET 1 tab by mouth at bedtime as needed for sleep 06/10 ZOLPIDEM TARTRATE 23949156687 No Longer Active Tu Landeros MD Active FLUOXETINE HCL 40 MG ORAL CAPSULE 1 po q day FLUOXETINE HCL 37921598953 No Longer Active Mayar Terry Active TRILIPIX 135 MG ORAL CAPSULE DELAYED RELEASE 1 po qd CHOLINE FENOFIBRATE 28803500932 No Longer Active Tu Landeros MD Active AMBIEN 10 MG ORAL TABLET 1 tab by mouth at bedtime as needed for sleep 06/10 AMBIEN 10 MG ORAL TABLET 911353 ZOLPIDEM TARTRATE Inactive METFORMIN HCL 500 MG ORAL TABLET 1 PO BID METFORMIN HCL 500 MG ORAL TABLET 088266 METFORMIN HCL Inactive REGLAN 10 MG ORAL TABLET 1 po TID PRN Nausea REGLAN 10 MG ORAL TABLET 193088 METOCLOPRAMIDE HCL Inactive MECLIZINE HCL 25 MG ORAL TABLET CHEWABLE 1 four times a day as needed for dizziness MECLIZINE HCL 25 MG ORAL TABLET CHEWABLE 888842 MECLIZINE HCL Inactive SOMA 350 MG ORAL TABLET 1 po q 6 hours prn spasm SOMA 350 MG ORAL TABLET 438748 CARISOPRODOL Inactive MELATONIN 5 MG ORAL TABLET Take one by mouth daily MELATONIN 5 MG ORAL TABLET 942928 MELATONIN Inactive MULTIVITAMINS TABS Take one by mouth daily MULTIVITAMINS TABS MULTIPLE VITAMIN Inactive LORTAB 5-500 MG ORAL TABLET 1/2 to 1 tablet by mouth every 4 hours as needed for pain LORTAB 5-500 MG ORAL TABLET HYDROCODONE- ACETAMINOPHEN Inactive XANAX 0.5 MG ORAL TABLET 1 tablet every 6 hrs prn XANAX 0.5 MG ORAL TABLET 337345 ALPRAZOLAM Inactive AUGMENTIN 875-125 MG ORAL TABLET 1 tab by mouth twice daily with food AUGMENTIN 875-125 MG ORAL TABLET 530633 AMOXICILLIN-POT CLAVULANATE Inactive ALPRAZOLAM 0.5 MG ORAL TABLET 1 tab every 6hrs as needed ALPRAZOLAM 0.5 MG ORAL TABLET 993971 ALPRAZOLAM Inactive SPIRONOLACTONE 25 MG ORAL TABLET 0.5 tablet by mouth daily 09/09 SPIRONOLACTONE 25 MG ORAL TABLET 434102 SPIRONOLACTONE Inactive ACCU-CHEK KEYONA PLUS w/Device KIT [...] times daily as needed ACCU-CHEK FASTCLIX LANCETS 56378371359 LANCETS Inactive TRAMADOL HCL 50 MG ORAL TABLET 1 tablets every 6 hours as needed for pain TRAMADOL HCL 50 MG ORAL TABLET 996679 TRAMADOL HCL Inactive VENLAFAXINE HCL 75 MG ORAL TABLET 1 po BID VENLAFAXINE HCL 75 MG ORAL TABLET 456199 VENLAFAXINE HCL Inactive HYDROCODONE-ACETAMINOPHEN 5-500 MG ORAL TABLET take one po Q 4-6 hours prn HYDROCODONE-ACETAMINOPHEN 5-500 MG ORAL TABLET 083676 HYDROCODONE-ACETAMINOPHEN Inactive LORTAB 5-500 MG ORAL TABLET 1/2 to 1 tablet by mouth every 4 hours as needed for pain LORTAB 5-500 MG ORAL TABLET HYDROCODONE- ACETAMINOPHEN Inactive LAMISIL 250 MG ORAL TABLET 1 po qd LAMISIL 250 MG ORAL TABLET 692752 TERBINAFINE HCL Inactive VENLAFAXINE HCL 37.5 MG ORAL TABLET 1 po BID VENLAFAXINE HCL 37.5 MG ORAL TABLET 087214 VENLAFAXINE HCL Inactive CIPRO 500 MG ORAL TABLET 1 tablet by mouth twice daily CIPRO 500 MG ORAL TABLET 151013 CIPROFLOXACIN HCL Inactive VENLAFAXINE HCL 75 MG ORAL TABLET 1 po BID VENLAFAXINE HCL 75 MG ORAL TABLET 740062 VENLAFAXINE HCL Inactive SIMVASTATIN 40 MG ORAL TABLET Take one by mouth daily SIMVASTATIN 40 MG ORAL TABLET 557020 SIMVASTATIN Inactive OMEPRAZOLE 20 MG ORAL TABLET DELAYED RELEASE 1 PO 30 MIN BEFORE 1ST MEAL 2010 OMEPRAZOLE 20 MG ORAL TABLET DELAYED RELEASE 035626 OMEPRAZOLE Inactive FENOFIBRATE 145 MG ORAL TABLET 1 po qd FENOFIBRATE 145 MG ORAL TABLET 033690 FENOFIBRATE Inactive BACTRIM DS 800-160 MG ORAL TABLET 1 bid x 14 day start 09-28-13 BACTRIM DS 800-160 MG ORAL TABLET 065154 SULFAMETHOXAZOLE- TRIMETHOPRIM Inactive B-12 100 MCG ORAL TABLET Take one by mouth daily B-12 100 MCG ORAL TABLET CYANOCOBALAMIN Inactive GABAPENTIN 100 MG ORAL CAPSULE 1 po bid GABAPENTIN 100 MG ORAL CAPSULE 938117 GABAPENTIN Inactive HYDROCODONE-ACETAMINOPHEN 5-325 MG ORAL TABLET 1 tab by mouth every 6 hours as needed for pain HYDROCODONE-ACETAMINOPHEN 5-325 MG ORAL TABLET 849232 HYDROCODONE-ACETAMINOPHEN Inactive CIPRO 500 MG ORAL TABLET 1 bid x 14 days start 09-28-13 CIPRO 500 MG ORAL TABLET 902397 CIPROFLOXACIN HCL Inactive ALIGN 4 MG ORAL [...] SODIUM 50 MG ORAL TABLET DELAYED RELEASE 324394 DICLOFENAC SODIUM Inactive PREDNISONE 20 MG ORAL TABLET 2 tablets once daily for 2 days, then 1 tablet once daily for 2 days PREDNISONE 20 MG ORAL TABLET 616641 PREDNISONE Inactive TRUEDRAW LANCING DEVICE Test twice a day dx 250.0 TRUEDRAW LANCING DEVICE LANCET DEVICES Inactive TRUERESULT BLOOD GLUCOSE w/Device KIT test blood sugar twice daily dx 250.00 TRUERESULT BLOOD GLUCOSE w/Device KIT BLOOD GLUCOSE MONITORING SUPPL Inactive FLONASE 50 MCG/ACT NASAL SUSPENSION 1 spray each nostril twice daily until bottle empty FLONASE 50 MCG/ACT NASAL SUSPENSION 9439135 FLUTICASONE PROPIONATE Inactive VENTOLIN HFA 108 (90 Base) MCG/ACT INHALATION AEROSOL SOLUTION 1-2 puffs every 4 hours if needed for cough/congestion VENTOLIN HFA 108 (90 Base) MCG/ACT INHALATION AEROSOL SOLUTION ALBUTEROL SULFATE Inactive REQUIP 2 MG ORAL TABLET Take one tablet at bedtime prn REQUIP 2 MG ORAL TABLET 063161 ROPINIROLE HCL Inactive SUPER B COMPLEX/VITAMIN C ORAL TABLET 1 qd SUPER B COMPLEX/VITAMIN C ORAL TABLET 42618393494 B COMPLEX-C Inactive TRUEDRAW LANCING DEVICE test blood sugar twice daily dx: 250.00 TRUEDRAW LANCING DEVICE LANCET DEVICES Inactive TRUETEST TEST IN VITRO STRIP test blood sugar twice daily. DX 250.0 TRUETEST TEST IN VITRO STRIP GLUCOSE BLOOD Inactive CYCLOBENZAPRINE HCL 10 MG ORAL TABLET 1 po TID PRN Muscle Spasm CYCLOBENZAPRINE HCL 10 MG ORAL TABLET 170464 CYCLOBENZAPRINE HCL Inactive DICLOFENAC SODIUM 50 MG ORAL TABLET DELAYED RELEASE 1 po BID PRN Pain DICLOFENAC SODIUM 50 MG ORAL TABLET DELAYED RELEASE 030327 DICLOFENAC SODIUM Inactive DICLOFENAC SODIUM 75 MG ORAL TABLET DELAYED RELEASE 1 po BID PRN Pain DICLOFENAC SODIUM 75 MG ORAL TABLET DELAYED RELEASE 955149 DICLOFENAC SODIUM Inactive NASONEX 50 MCG/ACT NASAL SUSPENSION 2 actuations in each nostril q day 07/15 NASONEX 50 MCG/ACT NASAL SUSPENSION 4050719 MOMETASONE FUROATE Inactive GUAIFENESIN ER 600 MG ORAL TABLET EXTENDED RELEASE 12 HOUR 1 twice a day as needed for congestion GUAIFENESIN ER 600 MG ORAL TABLET EXTENDED RELEASE 12 HOUR GUAIFENESIN Inactive TRIAMCINOLONE ACETONIDE 0.1 % EXTERNAL OINTMENT Apply to affected areas TID for up to 2 weeks TRIAMCINOLONE ACETONIDE 0.1 % EXTERNAL OINTMENT 3332694 TRIAMCINOLONE ACETONIDE Inactive PREDNISONE 20 MG ORAL TABLET 2 tabs daily for 3 days, 1 tab daily for 3 days, 1/2 tab daily for 2 days PREDNISONE 20 MG ORAL TABLET 951845 PREDNISONE Inactive PREDNISONE 20 MG ORAL TABLET 2 tabs daily for 3 days, 1 tab daily for 3 days, 1/2 tab daily for 2 days PREDNISONE 20 MG ORAL TABLET 203615 PREDNISONE Inactive BACTRIM DS 800-160 MG ORAL TABLET 1 po BID x 7 days BACTRIM DS 800-160 MG ORAL TABLET 531529 SULFAMETHOXAZOLE-TRIMETHOPRIM Inactive ZITHROMAX 250 MG ORAL TABLET 2 po today, then 1 po q days 2-5 ZITHROMAX 250 MG ORAL TABLET 198028 AZITHROMYCIN Inactive PREDNISONE 20 MG ORAL TABLET 2 po qd x 5 days PREDNISONE 20 MG ORAL TABLET 589452 PREDNISONE Inactive Advance Directives Directive Description Start Date DISCUSSED WITH PATIENT -- NO DECISION MADE Immunizations Vaccine Administration Date Value Standard Description Seasonal influenza vaccine, injectable, containing preservative, for > 3 years old (Afluria, FluLaval, Fluzone, Fluvirin, Fluarix, Agriflu(>=18 yo)) Fluzone (>3 yrs.) [[id number]] Influenza, seasonal, injectable influenza immunization (Flu Vax) has been administered 02/22/2012 influenza virus vaccine, unspecified formulation Seasonal influenza vaccine, injectable, containing preservative, for > 3 years old (Afluria, FluLaval, Fluzone, Fluvirin, Fluarix, Agriflu(>=18 yo)) Fluzone (>3 yrs.) [[id number]] Influenza, seasonal, injectable Vital Signs Date Name [...] ... - Chemistry sodium, serum 141 mmol/L 219-110 9431/01/16 carbon dioxide, venous blood 28.3 mmol/L 21.0-32.0 [...] 6.7 % 4.3-6.0 cholesterol, serum 106 mg/dL 902-092 6396/01/16 triglyceride, serum, fasting 173 mg/dL 30-200 HDL [...] 4.3-6.0 Encounters Code Encounter Date Provider Facility CPT-82342 Level 3 Est. 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 Patient 13:42:02 LACE FINISHER Tu Landeros MD [facility] CPT-32325 Level 3 Est. Patient 14:20:36 CDT Tu Landeros MD [facility] CPT-25182 Level 4 Est. Patient 14:28:34 CDT Tu Landeros MD [facility] CPT-53213 Level 3 Est. Patient 13:33:09 CDT Tu Landeros MD [facility] CPT-87278 Level 4 Est. Patient 14:29:21 CDT Tu Landeros MD [facility] CPT-83669 Level 4 Est. Patient 09:08:17 LACE FINISHER Tu Landeros MD [facility] CPT-41056 Level 4 Est. Patient 14:40:19 CDT Tu Landeros MD [facility] CPT-43713 Level 4 Est. Patient 14:06:04 LACE FINISHER Tu Landeros MD [facility] CPT-64521 Level 3 Est. Patient 14:05:18 LACE FINISHER Tu Landeros MD [facility] CPT-75121 Level 3 Est. Patient 10:06:54 LACE FINISHER Miranda Farah [employer] [facility] CPT-19041 Level 4 Est. Patient 13:50:18 LACE FINISHER Tu Landeros MD [facility] CPT-12886 Level 3 Est. Patient 10:30:04 CDT Tu Landeros MD [facility] CPT-77005 Level 4 Est. Patient 11:03:38 CDT Tu Landeros MD [facility] CPT-49664 Level 3 Est. Patient 10:20:44 CDT Fab Morales DO [facility] CPT-23906 Level 4 Est. Patient 14:38:57 CDT Tu Landeros MD [facility] CPT-79302 Level 4 Est. Patient 14:27:39 LACE FINISHER Tu Landeros MD [facility] CPT-72801 Level 4 Est. Patient 09:45:25 CDT Tu Landeros MD [facility] CPT-41129 Level 4 Est. Patient 09:05:20 LACE FINISHER Tu Landeros MD [facility] CPT-18902 Level 4 Est. Patient 14:09:06 CDT Tu Landeros MD [facility] CPT-23069 Level 3 Est. Patient 13:36:54 CDT Tu Landeros MD [facility] CPT-96328 Level 3 Est. Patient 08:59:14 CDT Tu Landeros MD [facility] CPT-19451 Level 3 Est. Patient 13:48:35 CDT Fab Morales DO [facility] CPT-44098 Level 4 Est. Patient 10:05:48 CDT Tu Landeros MD [facility] CPT-12963 Level 3 Est. Patient 13:38:42 CDT Marek BANKS [facility] CPT-21407 Level 5 Est. Patient 08:08:39 CDT Jerrica FRANCIS [facility] CPT-43204 Level 4 Est. Patient 14:23:38 CDT Tu Landeros MD [facility] CPT-96083 Level 3 Est. Patient 11:44:04 CDT Tu Landeros MD [facility] CPT-80077 Level 3 Est. Patient 11:03:20 LACE FINISHER Tu Landeros MD [facility] CPT-07228 Level 3 Est. Patient 11:03:14 LACE FINISHER Tu Landeros MD [facility] CPT-76779 Level 3 Est. Patient 12:42:49 CDT Tu Landeros MD [facility] CPT-83377 Level 3 Est. Patient 11:52:06 CDT Tu Landeros MD [facility] CPT-83409 Level 3 Est. Patient 13:58:11 CDT Tu Landeros MD [facility] CPT-64424 Level 3 Est. Patient 17:50:07 CDT Fab Morales DO [facility] CPT-87096 Level 3 Est. Patient 12:06:29 CDT Elvira Cervantes MD PhD [facility] CPT-40114 Level 3 Est. Patient 15:50:32 CDT Tu Landeros MD [facility] CPT-33722 Level 4 Est. Patient 16:08:29 CDT Tu Landeros MD [facility] CPT-14616 Level 3 Est. Patient 16:04:19 CDT Tu Landeros MD [facility] CPT-79398 Level 3 Est. Patient 11:22:30 LACE FINISHER Tu Landeros MD [facility] CPT-49486 Level 4 Est. Patient 16:24:02 LACE FINISHER Tu Landeros MD [facility] CPT-15843 Level 3 Est. Patient 17:21:23 LACE FINISHER Tu Landeros MD [facility] Procedures Code Procedure Name Date Entry Date Standard Description CPT-14734 Shoulder, right, comp min 2V - XRAY USE ONLY 13:50:22 CDT CPT-G0009 Administration of Pneumococcal Vaccine 15:08:26 CDT CPT-47615 Prevnar 13 Intramuscular Suspension 15:08:26 CDT 10/08 CPT-G0439 [facility] Annual Wellness Exam 14:29:22 CDT CPT-00283 Venipuncture Draw Fee 13:15:35 CDT CPT-66802 Magnesium - LAB USE ONLY 11:14:20 LACE FINISHER CPT-44612 Lipid - LAB USE ONLY 11:14:20 LACE FINISHER CPT-91455 HGBA1C - LAB USE ONLY 11:14:20 LACE FINISHER CPT-36556 CMP - LAB USE ONLY 11:14:19 LACE FINISHER CPT-66662 CBC - LAB USE ONLY 11:14:19 LACE FINISHER CPT-34760 Venipuncture Draw Fee 11:14:18 LACE FINISHER CPT-75958 First Vx - Ix admin for Medicare patients 16:46:52 CDT CPT-86709 Fluzone Preservative Free Intramuscular Suspension 16:46 :51 CDT CPT-47847 CBC - LAB USE ONLY 17:14:46 CDT CPT-81665 HGBA1C - LAB USE ONLY 17:14:46 CDT CPT-55435 Venipuncture Draw Fee 17:14:46 CDT CPT-G0438 Initial Annual Wellness Exam 14:13:04 CDT CPT-74565 Breathing Tx 10:06:54 LACE FINISHER CPT-11203 Postop F/U Visit 10:02:45 CDT CPT-LR Lesion Removal 09:02:56 CDT CPT-JTINJ Asp/Joint Injection 15:51:27 LACE FINISHER CPT-OV Office Visit 15:52:02 LACE FINISHER CPT-OV Office Visit 15:45:11 CDT CPT-000 Give Zostavax 14:09:06 CDT CPT-02750 Administration single or combination vaccine inc oral 15 :19:04 CDT CPT-95735 Zoster Vaccine (Zostavax) 15:19:04 CDT CPT-61453 Administration single or combination vaccine inc oral 20 :51:03 CDT CPT-96061 Influenza split virus > age 3 20:51:03 CDT CPT-60199 No Charge Offi Visit 14:52:03 CDT CPT-OV Office Visit 14:57:43 CDT CPT-OV Office Visit 15:22:32 CDT CPT-38654 Administration single or combination vaccine inc oral 11 :33:15 CDT CPT-70207 Influenza split virus > age 3 11:33:15 CDT
--- OUTSIDE RECORDS SUMMARY | 2018-04-25 16:19 | XMS REPORT | Clinical Summary ---
Author Author Admin, SACHI Organization [employer] Address Unknown Phone Unavailable Allergies, Adverse Reactions, [...] magnesium metabolism URI 465.9 Active Lesli Kellogg APRN Acute upper respiratory infections [...] PAIN, LEFT ICD-719.41 Inactive Tu Landeros MD Open wound of [...] toe pain ICD-729.5 Inactive Tu Landeros MD CARPAL TUNNEL SYNDROME ICD-354.0 Inactive Tu Landeros MD ONYCHOMYCOSIS ICD-110.1 Inactive Tu Landeros MD Medication List Medication Instructions Start Date Stop Date Generic Name NDC Status Provider Patient Instruction NASONEX 50 MCG/ACT NASAL SUSPENSION 2 actuations in each nostril q day 07/15 MOMETASONE FUROATE [id number] Active Jilaura Kellogg APRN Active GUAIFENESIN ER 600 MG ORAL TABLET EXTENDED RELEASE 12 HOUR 1 twice a day as needed for congestion GUAIFENESIN 70563473730 Active Lesli Kellogg APRN Active MAGNESIUM OXIDE 400 MG ORAL TABLET 1 po BID MAGNESIUM OXIDE 42783157270 Active Tu Landeros MD Active SIMVASTATIN 20 MG ORAL TABLET 0.5 po qHS SIMVASTATIN 62673321703 Active Tu Landeros MD Active DICLOFENAC SODIUM 75 MG ORAL TABLET DELAYED RELEASE 1 po BID PRN Pain DICLOFENAC SODIUM 34156963697 No Longer Active Tu Landeros MD Active GABAPENTIN 100 MG ORAL CAPSULE 1 po TID GABAPENTIN 58279488568 Active Tu Landeros MD Active DICLOFENAC SODIUM 50 MG ORAL TABLET DELAYED RELEASE 1 po BID PRN Pain DICLOFENAC SODIUM 35911379530 No Longer Active Tu Landeros MD Active CYCLOBENZAPRINE HCL 10 MG ORAL TABLET 1 po TID PRN Muscle Spasm CYCLOBENZAPRINE HCL 23411995642 No Longer Active Tu Landeros MD Active INVOKANA 100 MG ORAL TABLET 1 po qd CANAGLIFLOZIN 09494017018 Active Tu Landeros MD Active GLIPIZIDE 5 MG ORAL TABLET 1 po qd GLIPIZIDE 51480780141 No Longer Active Tu Landeros MD Active VENLAFAXINE HCL 75 MG ORAL TABLET 1 po BID VENLAFAXINE HCL 75379277364 Active uT Landeros MD Active GLIMEPIRIDE 1 MG ORAL TABLET 1 po qd GLIMEPIRIDE 38901034587 No Longer Active Tu Landeros MD Active TRUE METRIX BLOOD GLUCOSE TEST IN VITRO STRIP Test blood sugar BID Dx: E11.9 GLUCOSE BLOOD 51869420092 Active Tu Landeros MD Active TRUE METRIX AIR GLUCOSE METER w/Device KIT Test blood glucose BID Dx: E11.9 BLOOD GLUCOSE MONITORING SUPPL 26655991635 Active Tu Landeros MD Active TRUETEST TEST IN VITRO STRIP test blood sugar twice daily. DX 250.0 GLUCOSE BLOOD 42012635407 No Longer Active Mirna Stanley LPN Active TRUEDRAW LANCING DEVICE test blood sugar twice daily dx: 250.00 LANCET DEVICES 41287400749 No Longer Active Mirna Stanley LPN Active ENALAPRIL MALEATE 20 MG ORAL TABLET 2 po qd ENALAPRIL MALEATE 68487070236 Active Tu Landeros MD Active SUPER B COMPLEX/VITAMIN C ORAL TABLET 1 qd B COMPLEX- C 62866774914 No Longer Active Tu Landeros MD Active ASPIRIN EC 81 MG ORAL TABLET DELAYED RELEASE 1 po qd ASPIRIN 28383394782 Active Tu Landeros MD Active GLUCOSAMINE 500 MG TABS 2 po qd GLUCOSAMINE Active Tu Landeros MD Active FISH OIL 1000 MG ORAL CAPSULE 1 po qd OMEGA-3 FATTY ACIDS 57926820950 Active Tu Landeros MD Active METFORMIN HCL 1000 MG ORAL TABLET 1 po BID METFORMIN HCL 84979959406 Active Tu Landeros MD Active KLOR-CON 10 10 MEQ ORAL TABLET EXTENDED RELEASE 2 po qd POTASSIUM CHLORIDE 32780503972 Active Tu Landeros MD Active FUROSEMIDE 40 MG ORAL TABLET 1 po qd FUROSEMIDE 51245937748 Active Tu Landeros MD Active REQUIP 2 MG ORAL TABLET 1 po qHS PRN Restless legs ROPINIROLE HCL 86793605097 Active Tu Landeros MD Active REQUIP 2 MG ORAL TABLET Take one tablet at bedtime prn ROPINIROLE HCL 20197385505 No Longer Active Tu Landeros MD Active VENTOLIN HFA 108 (90 Base) MCG/ACT INHALATION AEROSOL SOLUTION 1-2 puffs every 4 hours if needed for cough/congestion ALBUTEROL SULFATE 63359134355 No Longer Active Ambika Aden APRN Active ZITHROMAX 250 MG ORAL TABLET 2 po today, then 1 po q days 2-5 AZITHROMYCIN 44227762609 No Longer Active Miranda Farah APRN Active FLONASE 50 MCG/ACT NASAL SUSPENSION 1 spray each nostril twice daily until bottle empty FLUTICASONE PROPIONATE 86596809478 No Longer Active Tu Landeros MD Active COLACE 100 MG ORAL CAPSULE 1 po BID PRN Constipation DOCUSATE SODIUM 10553384960 Active Tu Landeros MD Active TRUERESULT BLOOD GLUCOSE w/Device KIT test blood sugar twice daily dx 250.00 BLOOD GLUCOSE MONITORING SUPPL 37554967303 No Longer Active uT Landeros MD Active TRUEDRAW LANCING DEVICE Test twice a day dx 250.0 LANCET DEVICES 62987071278 No Longer Active Tu Landeros MD Active PREDNISONE 20 MG ORAL TABLET 2 tablets once daily for 2 days, then 1 tablet once daily for 2 days PREDNISONE 25343115878 No Longer Active Tu Landeros MD Active DICLOFENAC SODIUM 50 MG ORAL TABLET DELAYED RELEASE 1 tablet by mouth three times a day as needed DICLOFENAC SODIUM 26854472737 No Longer Active Fab Morales DO Active EMBRACE BLOOD GLUCOSE TEST IN VITRO STRIP test blood sugar twice daily DX 250.0 GLUCOSE BLOOD 53466535688 No Longer Active Tu Landeros MD Active TRUETEST TEST IN VITRO STRIP test blood sugar three times daily dx: 250.00 GLUCOSE BLOOD 91879966646 No Longer Active Suze Nicole NURYSA Active TRUERESULT BLOOD GLUCOSE w/Device KIT use to test blood sugar tid dx: 250.00 BLOOD GLUCOSE MONITORING SUPPL 44171519045 No Longer Active Suze Nicole NURYSA Active ALIGN 4 MG ORAL CAPSULE 1 tid PROBIOTIC PRODUCT 50217813052 No Longer Active Shaun Sy MD Active CIPRO 500 MG ORAL TABLET 1 bid x 14 days start 09-28-13 CIPROFLOXACIN HCL 44016441790 No Longer Active Shaun Sy MD Active TRAMADOL HCL 50 MG ORAL TABLET 1-2 tablets every 6 hours as needed for pain TRAMADOL HCL 74764667170 Active Tu Landeros MD Active HYDROCODONE-ACETAMINOPHEN 5-325 MG ORAL TABLET 1 tab by mouth every 6 hours as needed for pain HYDROCODONE-ACETAMINOPHEN 97000564061 No Longer Active Tu Landeros MD Active OMEPRAZOLE 20 MG ORAL CAPSULE DELAYED RELEASE 1 po q a.m. OMEPRAZOLE 96888607006 Active Fab Morales DO Active GABAPENTIN 100 MG ORAL CAPSULE 1 po bid GABAPENTIN 10311539021 No Longer Active Tu Landeros MD Active B-12 100 MCG ORAL TABLET Take one by mouth daily CYANOCOBALAMIN 12389638448 No Longer Active Tu Landeros MD Active BACTRIM DS 800-160 MG ORAL TABLET 1 bid x 14 day start 09-28-13 SULFAMETHOXAZOLE-TRIMETHOPRIM 85070223150 No Longer Active Tu Landeros MD Active CARVEDILOL 12.5 MG ORAL TABLET 1 po BID CARVEDILOL 19582063744 Active Tu Landeros MD Active TRILIPIX 135 MG ORAL CAPSULE DELAYED RELEASE 1 q hs CHOLINE FENOFIBRATE 00583017799 Active Tu Landeros MD Active FENOFIBRATE 145 MG ORAL TABLET 1 po qd FENOFIBRATE 70248106432 No Longer Active JASPREET Perez Active OMEPRAZOLE 20 MG ORAL TABLET DELAYED RELEASE 1 PO 30 MIN BEFORE 1ST MEAL 2010 OMEPRAZOLE 23887930156 No Longer Active JASPREET Perez Active SIMVASTATIN 40 MG ORAL TABLET Take one by mouth daily SIMVASTATIN 04428308246 No Longer Active JASPREET Perez Active VENLAFAXINE HCL 75 MG ORAL TABLET 1 po BID VENLAFAXINE HCL 56432373916 No Longer Active JASPREET Perez Active CIPRO 500 MG ORAL TABLET 1 tablet by mouth twice daily CIPROFLOXACIN HCL 01026430899 No Longer Active Tu Landeros MD Active VENLAFAXINE HCL 37.5 MG ORAL TABLET 1 po BID VENLAFAXINE HCL 78285889763 No Longer Active Suzebianca Nicole RMA Active LAMISIL 250 MG ORAL TABLET 1 po qd TERBINAFINE HCL 51878596844 No Longer Active Tu Landeros MD Active LORTAB 5-500 MG ORAL TABLET 1/2 to 1 tablet by mouth every 4 hours as needed for pain HYDROCODONE-ACETAMINOPHEN 54262816902 No Longer Active Tu Landeros MD Active HYDROCODONE-ACETAMINOPHEN 5-500 MG ORAL TABLET take one po Q 4-6 hours prn HYDROCODONE-ACETAMINOPHEN 98478306367 No Longer Active Tu Landeros MD Active BACTRIM DS 800-160 MG ORAL TABLET 1 po BID x 7 days SULFAMETHOXAZOLE-TRIMETHOPRIM 51581174282 No Longer Active Tu Landeros MD Active VENLAFAXINE HCL 75 MG ORAL TABLET 1 po BID VENLAFAXINE HCL 64325362093 No Longer Active Elvira Cervantes MD PhD Active TRAMADOL HCL 50 MG ORAL TABLET 1 tablets every 6 hours as needed for pain TRAMADOL HCL 98629225502 No Longer Active Tu Landeros MD Active ACCU-CHEK FASTCLIX LANCETS Use to check bloodsugar three times daily as needed LANCETS 14210736136 No Longer Active Tu Landeros MD Active ACCU-CHEDawson KEYONA PLUS IN VITRO STRIP Use for testing bloodsugars three times daily as needed GLUCOSE BLOOD 49320089386 No Longer Active Tu Landeros MD Active ACCU-CHEK KEYONA PLUS w/Device KIT Use for testing bloodsugars three times daily as needed BLOOD GLUCOSE MONITORING SUPPL 43348062515 No Longer Active Tu Landeros MD Active SPIRONOLACTONE 25 MG ORAL TABLET 0.5 tablet by mouth daily 09/09 SPIRONOLACTONE 79711715950 No Longer Active Tu Landeros MD Active ALPRAZOLAM 0.5 MG ORAL TABLET 1 tab every 6hrs as needed ALPRAZOLAM 28120426441 No Longer Active Tu Landeros MD Active AUGMENTIN 875-125 MG ORAL TABLET 1 tab by mouth twice daily with food AMOXICILLIN-POT CLAVULANATE 95384803142 No Longer Active Tu Landeros MD Active PREDNISONE 20 MG ORAL TABLET 2 tabs daily for 3 days, 1 tab daily for 3 days, 1/2 tab daily for 2 days PREDNISONE 97274136898 No Longer Active Tu Landeros MD Active XANAX 0.5 MG ORAL TABLET 1 tablet every 6 hrs prn ALPRAZOLAM 37725728029 No Longer Active Tu Landeros MD Active PREDNISONE 20 MG ORAL TABLET 2 tabs daily for 3 days, 1 tab daily for 3 days, 1/2 tab daily for 2 days PREDNISONE 27952655006 No Longer Active Tu Landeros MD Active TRIAMCINOLONE ACETONIDE 0.1 % EXTERNAL OINTMENT Apply to affected areas TID for up to 2 weeks TRIAMCINOLONE ACETONIDE 65792926571 No Longer Active Tu Landeros MD Active LORTAB 5-500 MG ORAL TABLET 1/2 to 1 tablet by mouth every 4 hours as needed for pain HYDROCODONE-ACETAMINOPHEN 38065591685 No Longer Active Tu Landeros MD Active MULTIVITAMINS TABS Take one by mouth daily MULTIPLE VITAMIN 38438108746 No Longer Active Tu Landeros MD Active MELATONIN 5 MG ORAL TABLET Take one by mouth daily MELATONIN 16182679408 No Longer Active Tu Landeros MD Active SOMA 350 MG ORAL TABLET 1 po q 6 hours prn spasm CARISOPRODOL 48881766534 No Longer Active Tu Landeros MD Active MECLIZINE HCL 25 MG ORAL TABLET CHEWABLE 1 four times a day as needed for dizziness MECLIZINE HCL 21306874176 No Longer Active Fab Morales DO Active ANGEL BREEZE 2 TEST IN VITRO DISK test tid prn GLUCOSE BLOOD 80761343149 No Longer Active Negra Scott RN Active REGLAN 10 MG ORAL TABLET 1 po TID PRN Nausea METOCLOPRAMIDE HCL 22467599669 No Longer Active Tu Landeros MD Active METFORMIN HCL 500 MG ORAL TABLET 1 PO BID METFORMIN HCL 21930833835 No Longer Active Tu Landeros MD Active AMBIEN 10 MG ORAL TABLET 1 tab by mouth at bedtime as needed for sleep 06/10 ZOLPIDEM TARTRATE 85094510757 No Longer Active Tu Landeros MD Active FLUOXETINE HCL 40 MG ORAL CAPSULE 1 po q day FLUOXETINE HCL 38228909127 No Longer Active Mayra [place] Active TRILIPIX 135 MG ORAL CAPSULE DELAYED RELEASE 1 po qd CHOLINE FENOFIBRATE 16882275460 No Longer Active Tu Landeros MD Active AMBIEN 10 MG ORAL TABLET 1 tab by mouth at bedtime as needed for sleep 06/10 AMBIEN 10 MG ORAL TABLET 271951 ZOLPIDEM TARTRATE Inactive METFORMIN HCL 500 MG ORAL TABLET 1 PO BID METFORMIN HCL 500 MG ORAL TABLET 388439 METFORMIN HCL Inactive REGLAN 10 MG ORAL TABLET 1 po TID PRN Nausea REGLAN 10 MG ORAL TABLET 036119 METOCLOPRAMIDE HCL Inactive MECLIZINE HCL 25 MG ORAL TABLET CHEWABLE 1 four times a day as needed for dizziness MECLIZINE HCL 25 MG ORAL TABLET CHEWABLE 213536 MECLIZINE HCL Inactive SOMA 350 MG ORAL TABLET 1 po q 6 hours prn spasm SOMA 350 MG ORAL TABLET 472565 CARISOPRODOL Inactive MELATONIN 5 MG ORAL TABLET Take one by mouth daily MELATONIN 5 MG ORAL TABLET 665575 MELATONIN Inactive MULTIVITAMINS TABS Take one by mouth daily MULTIVITAMINS TABS MULTIPLE VITAMIN Inactive LORTAB 5-500 MG ORAL TABLET 1/2 to 1 tablet by mouth every 4 hours as needed for pain LORTAB 5-500 MG ORAL TABLET 778996 HYDROCODONE-ACETAMINOPHEN Inactive XANAX 0.5 MG ORAL TABLET 1 tablet every 6 hrs prn XANAX 0.5 MG ORAL TABLET 689336 ALPRAZOLAM Inactive AUGMENTIN 875-125 MG ORAL TABLET 1 tab by mouth twice daily with food AUGMENTIN 875-125 MG ORAL TABLET 081920 AMOXICILLIN-POT CLAVULANATE Inactive ALPRAZOLAM 0.5 MG ORAL TABLET 1 tab every 6hrs as needed ALPRAZOLAM 0.5 MG ORAL TABLET 657939 ALPRAZOLAM Inactive SPIRONOLACTONE 25 MG ORAL TABLET 0.5 tablet by mouth daily 09/09 SPIRONOLACTONE 25 MG ORAL TABLET 259444 SPIRONOLACTONE Inactive ACCU-CHEK KEYONA PLUS w/Device KIT [...] times daily as needed ACCU-CHEK FASTCLIX LANCETS 30872592767 LANCETS Inactive TRAMADOL HCL 50 MG ORAL TABLET 1 tablets every 6 hours as needed for pain TRAMADOL HCL 50 MG ORAL TABLET 405165 TRAMADOL HCL Inactive VENLAFAXINE HCL 75 MG ORAL TABLET 1 po BID VENLAFAXINE HCL 75 MG ORAL TABLET 101776 VENLAFAXINE HCL Inactive HYDROCODONE-ACETAMINOPHEN 5-500 MG ORAL TABLET take one po Q 4-6 hours prn HYDROCODONE-ACETAMINOPHEN 5-500 MG ORAL TABLET 561124 HYDROCODONE-ACETAMINOPHEN Inactive LORTAB 5-500 MG ORAL TABLET 1/2 to 1 tablet by mouth every 4 hours as needed for pain LORTAB 5-500 MG ORAL TABLET 503953 HYDROCODONE-ACETAMINOPHEN Inactive LAMISIL 250 MG ORAL TABLET 1 po qd LAMISIL 250 MG ORAL TABLET 850950 TERBINAFINE HCL Inactive VENLAFAXINE HCL 37.5 MG ORAL TABLET 1 po BID VENLAFAXINE HCL 37.5 MG ORAL TABLET 630812 VENLAFAXINE HCL Inactive CIPRO 500 MG ORAL TABLET 1 tablet by mouth twice daily CIPRO 500 MG ORAL TABLET 256540 CIPROFLOXACIN HCL Inactive VENLAFAXINE HCL 75 MG ORAL TABLET 1 po BID VENLAFAXINE HCL 75 MG ORAL TABLET 032527 VENLAFAXINE HCL Inactive SIMVASTATIN 40 MG ORAL TABLET Take one by mouth daily SIMVASTATIN 40 MG ORAL TABLET 385352 SIMVASTATIN Inactive OMEPRAZOLE 20 MG ORAL TABLET DELAYED RELEASE 1 PO 30 MIN BEFORE 1ST MEAL 2010 OMEPRAZOLE 20 MG ORAL TABLET DELAYED RELEASE 504750 OMEPRAZOLE Inactive FENOFIBRATE 145 MG ORAL TABLET 1 po qd FENOFIBRATE 145 MG ORAL TABLET 283560 FENOFIBRATE Inactive BACTRIM DS 800-160 MG ORAL TABLET 1 bid x 14 day start 09-28-13 BACTRIM DS 800-160 MG ORAL TABLET 777190 SULFAMETHOXAZOLE- TRIMETHOPRIM Inactive B-12 100 MCG ORAL TABLET Take one by mouth daily B-12 100 MCG ORAL TABLET CYANOCOBALAMIN Inactive GABAPENTIN 100 MG ORAL CAPSULE 1 po bid GABAPENTIN 100 MG ORAL CAPSULE 432407 GABAPENTIN Inactive HYDROCODONE-ACETAMINOPHEN 5-325 MG ORAL TABLET 1 tab by mouth every 6 hours as needed for pain HYDROCODONE-ACETAMINOPHEN 5-325 MG ORAL TABLET 165256 HYDROCODONE-ACETAMINOPHEN Inactive CIPRO 500 MG ORAL TABLET 1 bid x 14 days start 09-28-13 CIPRO 500 MG ORAL TABLET 735033 CIPROFLOXACIN HCL Inactive ALIGN 4 MG ORAL [...] SODIUM 50 MG ORAL TABLET DELAYED RELEASE 405497 DICLOFENAC SODIUM Inactive PREDNISONE 20 MG ORAL TABLET 2 tablets once daily for 2 days, then 1 tablet once daily for 2 days PREDNISONE 20 MG ORAL TABLET 656643 PREDNISONE Inactive TRUEDRAW LANCING DEVICE Test twice a day dx 250.0 TRUEDRAW LANCING DEVICE LANCET DEVICES Inactive TRUERESULT BLOOD GLUCOSE w/Device KIT test blood sugar twice daily dx 250.00 TRUERESULT BLOOD GLUCOSE w/Device KIT BLOOD GLUCOSE MONITORING SUPPL Inactive FLONASE 50 MCG/ACT NASAL SUSPENSION 1 spray each nostril twice daily until bottle empty FLONASE 50 MCG/ACT NASAL SUSPENSION 6168924 FLUTICASONE PROPIONATE Inactive VENTOLIN HFA 108 (90 Base) MCG/ACT INHALATION AEROSOL SOLUTION 1-2 puffs every 4 hours if needed for cough/congestion VENTOLIN HFA 108 (90 Base) MCG/ACT INHALATION AEROSOL SOLUTION ALBUTEROL SULFATE Inactive REQUIP 2 MG ORAL TABLET Take one tablet at bedtime prn REQUIP 2 MG ORAL TABLET 389731 ROPINIROLE HCL Inactive SUPER B COMPLEX/VITAMIN C ORAL TABLET 1 qd SUPER B COMPLEX/VITAMIN C ORAL TABLET 59050161906 B COMPLEX-C Inactive TRUEDRAW LANCING DEVICE test blood sugar twice daily dx: 250.00 TRUEDRAW LANCING DEVICE LANCET DEVICES Inactive TRUETEST TEST IN VITRO STRIP test blood sugar twice daily. DX 250.0 TRUETEST TEST IN VITRO STRIP GLUCOSE BLOOD Inactive CYCLOBENZAPRINE HCL 10 MG ORAL TABLET 1 po TID PRN Muscle Spasm CYCLOBENZAPRINE HCL 10 MG ORAL TABLET 446259 CYCLOBENZAPRINE HCL Inactive DICLOFENAC SODIUM 50 MG ORAL TABLET DELAYED RELEASE 1 po BID PRN Pain DICLOFENAC SODIUM 50 MG ORAL TABLET DELAYED RELEASE 880125 DICLOFENAC SODIUM Inactive DICLOFENAC SODIUM 75 MG ORAL TABLET DELAYED RELEASE 1 po BID PRN Pain DICLOFENAC SODIUM 75 MG ORAL TABLET DELAYED RELEASE 503024 DICLOFENAC SODIUM Inactive TRIAMCINOLONE ACETONIDE 0.1 % EXTERNAL OINTMENT Apply to affected areas TID for up to 2 weeks TRIAMCINOLONE ACETONIDE 0.1 % EXTERNAL OINTMENT 4975660 TRIAMCINOLONE ACETONIDE Inactive PREDNISONE 20 MG ORAL TABLET 2 tabs daily for 3 days, 1 tab daily for 3 days, 1/2 tab daily for 2 days PREDNISONE 20 MG ORAL TABLET 231208 PREDNISONE Inactive PREDNISONE 20 MG ORAL TABLET 2 tabs daily for 3 days, 1 tab daily for 3 days, 1/2 tab daily for 2 days PREDNISONE 20 MG ORAL TABLET 703610 PREDNISONE Inactive BACTRIM DS 800-160 MG ORAL TABLET 1 po BID x 7 days BACTRIM DS 800-160 MG ORAL TABLET 129674 SULFAMETHOXAZOLE-TRIMETHOPRIM Inactive ZITHROMAX 250 MG ORAL TABLET 2 po today, then 1 po q days 2-5 ZITHROMAX 250 MG ORAL TABLET 465000 AZITHROMYCIN Inactive Advance Directives Directive Description Start Date DISCUSSED WITH PATIENT -- NO DECISION MADE Immunizations Vaccine Administration Date Value Standard Description Seasonal influenza vaccine, injectable, containing preservative, for > 3 years old (Afluria, FluLaval, Fluzone, Fluvirin, Fluarix, Agriflu(>=18 yo)) Fluzone (>3 yrs.) [[id number]] Influenza, seasonal, injectable influenza immunization (Flu Vax) has been administered 02/22/2012 influenza virus vaccine, unspecified formulation Seasonal influenza vaccine, injectable, containing preservative, for > 3 years old (Afluria, FluLaval, Fluzone, Fluvirin, Fluarix, Agriflu(>=18 yo)) Fluzone (>3 yrs.) [[id number]] Influenza, seasonal, injectable Vital Signs Date Name [...] ... - Chemistry sodium, serum 141 mmol/L 347-138 8819/01/16 carbon dioxide, venous blood 28.3 mmol/L 21.0-32.0 [...] 6.7 % 4.3-6.0 cholesterol, serum 106 mg/dL 680-441 7591/01/16 triglyceride, serum, fasting 173 mg/dL 30-200 HDL [...] A1c - Chemistry cholesterol, serum 135 mg/dL 138-388 2663/05/17 HDL cholesterol, serum 41 mg/dL > OR=46 triglyceride, serum, fasting 206 mg/dL <150 LDL cholesterol, serum 53 MG/DL (CALC) mg/dL <130 cholesterol/HDL ratio, serum 3.3 (calc) < OR=5.0 Lab Report: HGBA1C - Chemistry hemoglobin A1C, blood, as % of total hemoglobin 6.5 % 4.3-6.0 Encounters Code Encounter Date Provider Facility CPT-37070 Level 3 Est. Patient 10:13:19 FARM MANAGER Lesli Kellogg GREETER [facility] CPT-80063 Level 4 Est. Patient 13:42:02 FARM MANAGER Tu Landeros MD [facility] CPT-76082 Level 3 Est. Patient 14:20:36 CDT Tu Landeros MD [facility] CPT-68145 Level 4 Est. Patient 14:28:34 CDT Tu Landeros MD [facility] CPT-58455 Level 3 Est. Patient 13:33:09 CDT Tu Landeros MD [facility] CPT-98483 Level 4 Est. Patient 14:29:21 CDT Tu Landeros MD [facility] CPT-14814 Level 4 Est. Patient 09:08:17 FARM MANAGER Tu Landeros MD [facility] CPT-53382 Level 4 Est. Patient 14:40:19 CDT Tu Landeros MD [facility] CPT-45777 Level 4 Est. Patient 14:06:04 FARM MANAGER Tu Landeros MD [facility] CPT-34470 Level 3 Est. Patient 14:05:18 FARM MANAGER Tu Landeros MD [facility] CPT-22341 Level 3 Est. Patient 10:06:54 FARM MANAGER Miranda Farah GREETER [facility] CPT-66180 Level 4 Est. Patient 13:50:18 FARM MANAGER Tu Landeros MD [facility] CPT-75349 Level 3 Est. Patient 10:30:04 CDT Tu Landeros MD [facility] CPT-91772 Level 4 Est. Patient 11:03:38 CDT Tu Landeros MD [facility] CPT-89643 Level 3 Est. Patient 10:20:44 CDT Fab Morales DO [facility] CPT-04978 Level 4 Est. Patient 14:38:57 CDT Tu Landeros MD [facility] CPT-70835 Level 4 Est. Patient 14:27:39 FARM MANAGER Tu Landeros MD [facility] CPT-74441 Level 4 Est. Patient 09:45:25 CDT Tu Landeros MD [facility] CPT-08910 Level 4 Est. Patient 09:05:20 FARM MANAGER Tu Landeros MD [facility] CPT-98267 Level 4 Est. Patient 14:09:06 CDT Tu Landeros MD [facility] CPT-93873 Level 3 Est. Patient 13:36:54 CDT Tu Landeros MD [facility] CPT-18688 Level 3 Est. Patient 08:59:14 CDT Tu Landeros MD [facility] CPT-22031 Level 3 Est. Patient 13:48:35 CDT Fab Morales DO [facility] CPT-22187 Level 4 Est. Patient 10:05:48 CDT Tu Landeros MD [facility] CPT-07689 Level 3 Est. Patient 13:38:42 CDT Marek BANKS [facility] CPT-53260 Level 5 Est. Patient 08:08:39 CDT Jerrica FRANCIS [facility] CPT-75931 Level 4 Est. Patient 14:23:38 CDT Tu Landeros MD [facility] CPT-28987 Level 3 Est. Patient 11:44:04 CDT Tu Landeros MD [facility] CPT-89042 Level 3 Est. Patient 11:03:20 FARM MANAGER Tu Landeros MD [facility] CPT-59848 Level 3 Est. Patient 11:03:14 FARM MANAGER Tu Landeros MD [facility] CPT-91379 Level 3 Est. Patient 12:42:49 CDT Tu Landeros MD [facility] CPT-51786 Level 3 Est. Patient 11:52:06 CDT Tu Landeros MD [facility] CPT-05677 Level 3 Est. Patient 13:58:11 CDT Tu Landeros MD [facility] CPT-89865 Level 3 Est. Patient 17:50:07 CDT Fab Morales DO [facility] CPT-77806 Level 3 Est. Patient 12:06:29 CDT Elvira Cervantes MD PhD [facility] CPT-75674 Level 3 Est. Patient 15:50:32 CDT Tu Landeros MD [facility] CPT-79316 Level 4 Est. Patient 16:08:29 CDT Tu Landeros MD [facility] CPT-13101 Level 3 Est. Patient 16:04:19 CDT Tu Landeros MD [facility] CPT-53541 Level 3 Est. Patient 11:22:30 FARM MANAGER Tu Landeros MD [facility] CPT-50951 Level 4 Est. Patient 16:24:02 FARM MANAGER Tu Landeros MD [facility] CPT-96589 Level 3 Est. Patient 17:21:23 FARM MANAGER Tu Landeros MD [facility] Procedures Code Procedure Name Date Entry Date Standard Description CPT-34169 Shoulder, right, comp min 2V - XRAY USE ONLY 13:50:22 CDT CPT-G0009 Administration of Pneumococcal Vaccine 15:08:26 CDT CPT-96018 Prevnar 13 Intramuscular Suspension 15:08:26 CDT 10/08 CPT-G0439 Subsequent Annual Wellness Exam 14:29:22 CDT CPT-72104 Venipuncture Draw Fee 13:15:35 CDT CPT-63050 Magnesium - LAB USE ONLY 11:14:20 FARM MANAGER CPT-63255 Lipid - LAB USE ONLY 11:14:20 FARM MANAGER CPT-59764 HGBA1C - LAB USE ONLY 11:14:20 FARM MANAGER CPT-74675 CMP - LAB USE ONLY 11:14:19 FARM MANAGER CPT-48964 CBC - LAB USE ONLY 11:14:19 FARM MANAGER CPT-26384 Venipuncture Draw Fee 11:14:18 FARM MANAGER CPT-90771 First Vx - Ix admin for Medicare patients 16:46:52 CDT CPT-92494 Fluzone Preservative Free Intramuscular Suspension 16:46 :51 CDT CPT-83805 CBC - LAB USE ONLY 17:14:46 CDT CPT-03637 HGBA1C - LAB USE ONLY 17:14:46 CDT CPT-33331 Venipuncture Draw Fee 17:14:46 CDT CPT-G0438 Initial Annual Wellness Exam 14:13:04 CDT CPT-87530 Breathing Tx 10:06:54 FARM MANAGER CPT-10764 Postop F/U Visit 10:02:45 CDT CPT-LR Lesion Removal 09:02:56 CDT CPT-JTINJ Asp/Joint Injection 15:51:27 FARM MANAGER CPT-OV Office Visit 15:52:02 FARM MANAGER CPT-OV Office Visit 15:45:11 CDT CPT-000 Give Zostavax 14:09:06 CDT CPT-67841 Administration single or combination vaccine inc oral 15 :19:04 CDT CPT-19539 Zoster Vaccine (Zostavax) 15:19:04 CDT CPT-04046 Administration single or combination vaccine inc oral 20 :51:03 CDT CPT-43041 Influenza split virus > age 3 20:51:03 CDT CPT-84810 No Charge Offi Visit 14:52:03 CDT CPT-OV Office Visit 14:57:43 CDT CPT-OV Office Visit 15:22:32 CDT CPT-45760 Administration single or combination vaccine inc oral 11 :33:15 CDT CPT-09894 Influenza split virus > age 3 11:33:15 CDT
--- OUTSIDE RECORDS SUMMARY | 2018-04-25 16:20 | XMS REPORT | Clinical Summary ---
Author Author Admin, SACHI Organization [employer] Address Unknown Phone Unavailable Allergies, Adverse Reactions, [...] MD Upper respiratory infection, viral ICD-465.9 Tessa yS MD Open wound of other and unspecified parts of trunk, complicated ICD-879.7 Tessa Landeros MD Knee pain, left, acute ICD-719.46 Inactive uT Landeros MD Ear pain, bilateral ICD-388.70 Inactive [...] 40 MG TABS 0.5 po qHS SIMVASTATIN 46621334250 Active Tu Landeros MD Active FISH OIL 1000 MG CAPS 1 po qd OMEGA-3 FATTY ACIDS 40085446842 Active Tu Landeros MD Active METFORMIN HCL 1000 MG TABS 1 po BID METFORMIN HCL 47499132456 Active Tu Landeros MD Active KLOR-CON 10 10 MEQ CR-TABS 2 po qd POTASSIUM CHLORIDE 81982571614 Active Tu Landeros MD Active FUROSEMIDE 40 MG TAB 1 po qd FUROSEMIDE 62329941721 Active Tu Landeros MD Active REQUIP 2 MG ORAL TABS 1 po qHS PRN Restless legs ROPINIROLE HCL 70857894640 Active Tu Landeros MD Active VENLAFAXINE HCL 37.5 MG TABS 1 po BID VENLAFAXINE HCL 27394291169 Active Tu Landeros MD Active GABAPENTIN 100 MG CAPS 1 po BID GABAPENTIN 71927197191 Active José Luis Becerra MD Active REQUIP 2 MG TABS Take one tablet at bedtime prn ROPINIROLE HCL 60356596975 No Longer Active Tu Landeros MD Active VENTOLIN HFA 108 (90 BASE) MCG/ACT AERS 1-2 puffs every 4 hours if needed for cough/congestion ALBUTEROL SULFATE 75943243785 No Longer Active Ambika Aden APRN Active ZITHROMAX 250 MG TAB 2 po today, then 1 po q days 2-5 AZITHROMYCIN 69610696118 No Longer Active Miranda Suresh APRN Active FLONASE 50 MCG/ACT SUSP 1 spray each nostril twice daily until bottle empty FLUTICASONE PROPIONATE 15951541830 No Longer Active Tu Landeros MD Active COLACE 100 MG CAP 1 po BID PRN Constipation DOCUSATE SODIUM 14915581854 Active Tu Landeros MD Active TRUERESULT BLOOD GLUCOSE W/DEVICE KIT test blood sugar twice daily dx 250.00 BLOOD GLUCOSE MONITORING SUPPL 65742656672 No Longer Active Tu Landeros MD Active TRUEDRAW LANCING DEVICE MISC Test twice a day dx 250.0 LANCET DEVICES 17440647549 No Longer Active Tu Landeros MD Active PREDNISONE 20 MG TAB 2 tablets once daily for 2 days, then 1 tablet once daily for 2 days PREDNISONE 43758998470 No Longer Active Tu Landeros MD Active DICLOFENAC SODIUM 50 MG TBEC 1 tablet by mouth three times a day as needed DICLOFENAC SODIUM 91003539507 No Longer Active Fab Morales DO Active TRUEDRAW LANCING DEVICE MISC test blood sugar twice daily dx: 250.00 LANCET DEVICES 76085520069 Active Tu Landeros MD Active TRUETEST TEST INVITR STRP test blood sugar twice daily. DX 250.0 GLUCOSE BLOOD 58746286951 Active Tu Landeros MD Active EMBRACE BLOOD GLUCOSE TEST STRP test blood sugar twice daily DX 250.0 2014 GLUCOSE BLOOD 56174698024 No Longer Active Tu Landeros MD Active TRUETEST TEST STRP test blood sugar three times daily dx: 250.00 GLUCOSE BLOOD 11753582907 No Longer Active Suze VOGEL Active TRUERESULT BLOOD GLUCOSE W/DEVICE KIT use to test blood sugar tid dx: 250.00 BLOOD GLUCOSE MONITORING SUPPL 44920656497 No Longer Active Suze Nicole JASPREET Active ALIGN 4 MG CAPS 1 tid PROBIOTIC PRODUCT 36023524481 No Longer Active Shaun Sy MD Active CIPRO 500 MG TABS 1 bid x 14 days start 09-28-13 CIPROFLOXACIN HCL 27658270531 No Longer Active Shaun Sy MD Active TRAMADOL HCL 50 MG TABS 1-2 tablets every 6 hours as needed for pain TRAMADOL HCL 20504633859 Active Tu Landeros MD Active HYDROCODONE-ACETAMINOPHEN 5-325 MG TABS 1 tab by mouth every 6 hours as needed for pain HYDROCODONE-ACETAMINOPHEN 75662635310 No Longer Active Tu Landeros MD Active OMEPRAZOLE 20 MG CPDR 1 po q a.m. OMEPRAZOLE 16230243264 Active Tu Landeros MD Active GABAPENTIN 100 MG CAPS 1 po bid GABAPENTIN 33718443106 No Longer Active Tu Landeros MD Active B-12 100 MCG TABS Take one by mouth daily CYANOCOBALAMIN 95512543025 No Longer Active Tu Landeros MD Active BACTRIM DS 800-160 MG TABS 1 bid x 14 day start 09-28-13 SULFAMETHOXAZOLE-TRIMETHOPRIM 69872658562 No Longer Active Tu Landeros MD Active CARVEDILOL 12.5 MG TABS 1 po BID CARVEDILOL 45592962320 Active Tu Landeros MD Active SUPER B COMPLEX/VITAMIN C TABS 1 qd B COMPLEX-C 40150352568 Active JASPREET Perez Active TRILIPIX 135 MG CPDR 1 q hs CHOLINE FENOFIBRATE 18171079157 Active Tu Landeros MD Active FENOFIBRATE 145 MG TABS 1 po qd FENOFIBRATE 78354340636 No Longer Active JASPREET Perez Active OMEPRAZOLE 20 MG TBEC 1 PO 30 MIN BEFORE 1ST MEAL OMEPRAZOLE 00223670511 No Longer Active JASPREET Perez Active SIMVASTATIN 40 MG TABS Take one by mouth daily SIMVASTATIN 39290479608 No Longer Active JASPREET Perez Active VENLAFAXINE HCL 75 MG TABS 1 po BID VENLAFAXINE HCL 65571975138 No Longer Active JASPREET Perez Active CIPRO 500 MG TAB 1 tablet by mouth twice daily CIPROFLOXACIN HCL 70937109357 No Longer Active Tu Landeros MD Active VENLAFAXINE HCL 37.5 MG TABS 1 po BID VENLAFAXINE HCL 38990659385 No Longer Active Suzebianca Seguraart RMA Active LAMISIL 250 MG TAB 1 po qd TERBINAFINE HCL 97187994535 No Longer Active Tu Landeros MD Active LORTAB 5 5-500 MG TABS 1/2 to 1 tablet by mouth every 4 hours as needed for pain HYDROCODONE-ACETAMINOPHEN 44030778327 No Longer Active Tu Landeros MD Active ENALAPRIL MALEATE 20 MG TABS 1.5 po qd ENALAPRIL MALEATE 36262549437 Active Tu Landeros MD Active HYDROCODONE-ACETAMINOPHEN 5-500 MG TABS take one po Q 4-6 hours prn HYDROCODONE-ACETAMINOPHEN 01557771785 No Longer Active Tu Landeros MD Active BACTRIM DS 800-160 MG TABS 1 po BID x 7 days SULFAMETHOXAZOLE-TRIMETHOPRIM 97560074379 No Longer Active Tu Landeros MD Active VENLAFAXINE HCL 75 MG TABS 1 po BID VENLAFAXINE HCL 89257892997 No Longer Active Elvira Cervantes MD PhD Active TRAMADOL HCL 50 MG TABS 1 tablets every 6 hours as needed for pain TRAMADOL HCL 40493588978 No Longer Active Tu Landeros MD Active ACCU-CHEK FASTCLIX LANCETS MISC Use to check bloodsugar three times daily as needed LANCETS 07197232495 No Longer Active Tu Landeros MD Active ACCU-CHEK KEYONA PLUS STRP Use for testing bloodsugars three times daily as needed GLUCOSE BLOOD 72955780194 No Longer Active Tu Landeros MD Active ACCU-CHEK KEYONA PLUS W/DEVICE KIT Use for testing bloodsugars three times daily as needed BLOOD GLUCOSE MONITORING SUPPL 60026037627 No Longer Active Tu Landeros MD Active SPIRONOLACTONE 25 MG TAB 0.5 tablet by mouth daily SPIRONOLACTONE 64867841806 No Longer Active Tu Landeros MD Active ALPRAZOLAM 0.5 MG TABS 1 tab every 6hrs as needed ALPRAZOLAM 28191993468 No Longer Active Tu Landeros MD Active AUGMENTIN 875-125 MG TAB 1 tab by mouth twice daily with food AMOXICILLIN-POT CLAVULANATE 25779088756 No Longer Active Tu Landeros MD Active PREDNISONE 20 MG TAB 2 tabs daily for 3 days, 1 tab daily for 3 days, 1/2 tab daily for 2 days PREDNISONE 77626853620 No Longer Active Tu Landeros MD Active XANAX 0.5 MG TABS 1 tablet every 6 hrs prn ALPRAZOLAM 00000915141 No Longer Active Tu Landeros MD Active PREDNISONE 20 MG TAB 2 tabs daily for 3 days, 1 tab daily for 3 days, 1/2 tab daily for 2 days PREDNISONE 10489147468 No Longer Active Tu Landeros MD Active TRIAMCINOLONE ACETONIDE 0.1 % OINT Apply to affected areas TID for up to 2 weeks TRIAMCINOLONE ACETONIDE 41461611934 No Longer Active Tu Landeros MD Active LORTAB 5 5-500 MG TABS 1/2 to 1 tablet by mouth every 4 hours as needed for pain HYDROCODONE-ACETAMINOPHEN 03150281105 No Longer Active Tu Landeros MD Active MULTIVITAMINS TABS Take one by mouth daily MULTIPLE VITAMIN 94943275429 No Longer Active Tu Landeros MD Active MELATONIN 5 MG TABS Take one by mouth daily MELATONIN 94214048461 No Longer Active Tu Landeros MD Active SOMA 350 MG TAB 1 po q 6 hours prn spasm CARISOPRODOL 23755615648 No Longer Active Tu Landeros MD Active MECLIZINE HCL 25 MG CHEW TAB 1 four times a day as needed for dizziness 08/05 MECLIZINE HCL 04573148114 No Longer Active Fab Morales DO Active ANGEL BREEZE 2 TEST DISK test tid prn GLUCOSE BLOOD 42369550127 No Longer Active Negra Scott RN Active REGLAN 10 MG TAB 1 po TID PRN Nausea METOCLOPRAMIDE HCL 39620010439 No Longer Active Tu Landeros MD Active METFORMIN HCL 500 MG TABS 1 PO BID METFORMIN HCL 27388076934 No Longer Active Tu Landeros MD Active AMBIEN 10 MG TAB 1 tab by mouth at bedtime as needed for sleep ZOLPIDEM TARTRATE 13008926126 No Longer Active Tu Landeros MD Active FLUOXETINE HCL 40 MG CAPS 1 po q day FLUOXETINE HCL 72231434367 No Longer Active Mayra Allison Active GLUCOSAMINE 500 MG TABS Take 2 tab po qd GLUCOSAMINE 60852739556 Active Tu Landeros MD Active TRILIPIX 135 MG CPDR 1 po qd CHOLINE FENOFIBRATE 55316773976 No Longer Active Tu Landeros MD Active ASPIRIN 81 MG CHEW TAB 1 tablet by mouth daily ASPIRIN 40116256412 Active Tu Landeros MD Active AMBIEN 10 MG TAB 1 tab by mouth at bedtime as needed for sleep AMBIEN 10 MG TAB 707251 ZOLPIDEM TARTRATE Inactive METFORMIN HCL 500 MG TABS 1 PO BID METFORMIN HCL 500 MG TABS 506647 METFORMIN HCL Inactive REGLAN 10 MG TAB 1 po TID PRN Nausea REGLAN 10 MG TAB 196951 METOCLOPRAMIDE HCL Inactive MECLIZINE HCL 25 MG CHEW TAB 1 four times a day as needed for dizziness 08/05 MECLIZINE HCL 25 MG CHEW TAB 247026 MECLIZINE HCL Inactive SOMA 350 MG TAB 1 po q 6 hours prn spasm SOMA 350 MG TAB 145754 CARISOPRODOL Inactive MELATONIN 5 MG TABS Take one by mouth daily MELATONIN 5 MG TABS 447199 MELATONIN Inactive MULTIVITAMINS TABS Take one by mouth daily MULTIVITAMINS TABS MULTIPLE VITAMIN Inactive LORTAB 5 5-500 MG TABS 1/2 to 1 tablet by mouth every 4 hours as needed for pain LORTAB 5 5-500 MG TABS HYDROCODONE- ACETAMINOPHEN Inactive XANAX 0.5 MG TABS 1 tablet every 6 hrs prn XANAX 0.5 MG TABS 117835 ALPRAZOLAM Inactive AUGMENTIN 875-125 MG TAB 1 tab by mouth twice daily with food AUGMENTIN 875-125 MG TAB 494553 AMOXICILLIN-POT CLAVULANATE Inactive ALPRAZOLAM 0.5 MG TABS 1 tab every 6hrs as needed ALPRAZOLAM 0.5 MG TABS 889869 ALPRAZOLAM Inactive SPIRONOLACTONE 25 MG TAB 0.5 tablet by mouth daily SPIRONOLACTONE 25 MG TAB 734341 SPIRONOLACTONE Inactive ACCU-CHEK KEYONA PLUS W/DEVICE KIT Use for testing bloodsugars three times daily as needed ACCU-CHEK KEYONA PLUS W/DEVICE KIT BLOOD GLUCOSE MONITORING SUPPL Inactive ACCU-CHEK KEYONA PLUS STRP Use for testing bloodsugars three times daily as needed ACCU-CHEK KEYONA PLUS STRP GLUCOSE BLOOD Inactive ACCU-CHEK FASTCLIX LANCETS MIS Use to check bloodsugar three times daily as needed ACCU-CHEK FASTCLIX LANCETS [facility] L[facility] Inactive TRAMADOL HCL 50 MG TABS 1 tablets every 6 hours as needed for pain TRAMADOL HCL 50 MG TABS 245731 TRAMADOL HCL Inactive VENLAFAXINE HCL 75 MG TABS 1 po BID VENLAFAXINE HCL 75 MG TABS 209626 VENLAFAXINE HCL Inactive HYDROCODONE-ACETAMINOPHEN 5-500 MG TABS take one po Q 4-6 hours prn HYDROCODONE-ACETAMINOPHEN 5-500 MG TABS HYDROCODONE- ACETAMINOPHEN Inactive LORTAB 5 5-500 MG TABS 1/2 to 1 tablet by mouth every 4 hours as needed for pain LORTAB 5 5-500 MG TABS HYDROCODONE- ACETAMINOPHEN Inactive LAMISIL 250 MG TAB 1 po qd LAMISIL 250 MG TAB 253058 TERBINAFINE HCL Inactive VENLAFAXINE HCL 37.5 MG TABS 1 po BID VENLAFAXINE HCL 37.5 MG TABS 701164 VENLAFAXINE HCL Inactive CIPRO 500 MG TAB 1 tablet by mouth twice daily CIPRO 500 MG TAB 039069 CIPROFLOXACIN HCL Inactive VENLAFAXINE HCL 75 MG TABS 1 po BID VENLAFAXINE HCL 75 MG TABS 897670 VENLAFAXINE HCL Inactive SIMVASTATIN 40 MG TABS Take one by mouth daily SIMVASTATIN 40 MG TABS 015010 SIMVASTATIN Inactive OMEPRAZOLE 20 MG TBEC 1 PO 30 MIN BEFORE 1ST MEAL OMEPRAZOLE 20 MG TBEC 188964 OMEPRAZOLE Inactive FENOFIBRATE 145 MG TABS 1 po qd FENOFIBRATE 145 MG TABS 233008 FENOFIBRATE Inactive BACTRIM DS 800-160 MG TABS 1 bid x 14 day start 09-28-13 BACTRIM DS 800-160 MG TABS 564780 SULFAMETHOXAZOLE-TRIMETHOPRIM Inactive B-12 100 MCG TABS Take one by mouth daily B-12 100 MCG TABS CYANOCOBALAMIN Inactive GABAPENTIN 100 MG CAPS 1 po bid GABAPENTIN 100 MG CAPS 137709 GABAPENTIN Inactive HYDROCODONE-ACETAMINOPHEN 5-325 MG TABS 1 tab by mouth every 6 hours as needed for pain HYDROCODONE-ACETAMINOPHEN 5-325 MG TABS 488275 HYDROCODONE-ACETAMINOPHEN Inactive CIPRO 500 MG TABS 1 bid x 14 days start 09-28-13 CIPRO 500 MG TABS 835911 CIPROFLOXACIN HCL Inactive ALIGN 4 MG CAPS [...] as needed DICLOFENAC SODIUM 50 MG TBEC 431956 DICLOFENAC SODIUM Inactive PREDNISONE 20 MG TAB 2 tablets once daily for 2 days, then 1 tablet once daily for 2 days PREDNISONE 20 MG TAB 865412 PREDNISONE Inactive TRUEDRAW LANCING DEVICE MISC Test [...] at bedtime prn REQUIP 2 MG TABS 197482 ROPINIROLE HCL Inactive TRIAMCINOLONE ACETONIDE 0.1 % OINT Apply to affected areas TID for up to 2 weeks TRIAMCINOLONE ACETONIDE 0.1 % OINT 2425967 TRIAMCINOLONE ACETONIDE Inactive PREDNISONE 20 MG TAB 2 tabs daily for 3 days, 1 tab daily for 3 days, 1/2 tab daily for 2 days PREDNISONE 20 MG TAB 868728 PREDNISONE Inactive PREDNISONE 20 MG TAB 2 tabs daily for 3 days, 1 tab daily for 3 days, 1/2 tab daily for 2 days PREDNISONE 20 MG TAB 000064 PREDNISONE Inactive BACTRIM DS 800-160 MG TABS 1 po BID x 7 days BACTRIM DS 800-160 MG TABS 261801 SULFAMETHOXAZOLE-TRIMETHOPRIM Inactive ZITHROMAX 250 MG TAB 2 po today, then 1 po q days 2-5 ZITHROMAX 250 MG TAB 2425946 AZITHROMYCIN Inactive Advance Directives Directive Description Start Date DISCUSSED WITH PATIENT -- NO DECISION MADE Immunizations Vaccine Administration Date Value Standard Description Seasonal influenza vaccine, injectable, containing preservative, for > 3 years old (Afluria, FluLaval, Fluzone, Fluvirin, Fluarix, Agriflu(>=18 yo)) Fluzone (>3 yrs.) [[id number]] Influenza, seasonal, injectable influenza immunization (Flu Vax) has been administered 02/22/2012 influenza virus vaccine, unspecified formulation Seasonal influenza vaccine, injectable, containing preservative, for > 3 years old (Afluria, FluLaval, Fluzone, Fluvirin, Fluarix, Agriflu(>=18 yo)) Fluzone (>3 yrs.) [[id number]] Influenza, seasonal, injectable Vital Signs Date Name [...] Magnesium - Chemistry sodium, serum 143 mmol/L 784-895 8582/01/10 carbon dioxide, venous blood 28.0 mmol/L 21.0-32.0 potassium, serum 4.5 mmol/L 3.5-5.2 chloride, serum 104 mmol/L 98-107 blood glucose 158 mg/dL 65-110 urea nitrogen, blood 23 mg/dL 7-18 creatinine, serum 1.06 mg/dL 0.55-1.30 alanine aminotransferase (SGPT), serum 42 U/L 12-78 aspartate aminotransferase (SGOT), serum 32 U/L 15-37 calcium, serum 9.3 mg/dL 8.5-10.1 bilirubin, serum, total 0.20 mg/dL 0.00-1.00 cholesterol, serum 177 mg/dL 993-420 2531/01/10 triglyceride, serum, fasting 320 mg/dL 30-200 HDL cholesterol, serum 46 mg/dL 32-96 LDL cholesterol, serum 67 mg/dL 0-130 Lab Report: HGBA1C - Chemistry hemoglobin A1C, blood, as % of total hemoglobin 7.7 % 4.3-6.0 hemoglobin A1C, blood, as % of total hemoglobin 7.1 % 4.3-6.0 hemoglobin A1C, blood, as % of total hemoglobin 7.4 % 4.3-6.0 sodium, serum 140 mmol/L 586-227 9426/09/07 potassium, serum 4.3 mmol/L 3.5-5.2 chloride, serum 104 mmol/L 98-107 carbon dioxide, venous blood 27.7 mmol/L 21.0-32.0 blood glucose 156 mg/dL 65-110 calcium, serum 9.3 mg/dL 8.5-10.1 urea nitrogen, blood 23 mg/dL 7-18 creatinine, serum 1.21 mg/dL 0.55-1.30 Lab Report: Lipid Panel, Comp. Metabolic Panel - Chemistry cholesterol, serum 124 mg/dL 881-441 0277/01/12 triglyceride, serum, fasting 135 mg/dL 30-200 HDL cholesterol, serum 41 mg/dL 32-96 LDL cholesterol, serum 56 mg/dL 0-130 sodium, serum 140 mmol/L 660-958 5236/01/12 carbon dioxide, venous blood 27.7 mmol/L 21.0-32.0 potassium, serum 4.5 mmol/L 3.5-5.2 chloride, serum 104 mmol/L 98-107 blood glucose 139 mg/dL 65-110 urea nitrogen, blood 16 mg/dL 7-18 alanine aminotransferase (SGPT), serum 32 U/L 12-78 aspartate aminotransferase (SGOT), serum 25 U/L 15-37 calcium, serum 9.1 mg/dL 8.5-10.1 bilirubin, serum, total 0.50 mg/dL 0.00-1.00 Lab Report: MicroAlb Random w/creat/6517 - Urinalysis microalbumin/total urine volume 21 mg/L Units converted. See lab report for original value. microalbumin/creatinine ratio, urine 11 MCG/MG CREAT mg/L <30 Encounters Code Encounter Date Provider Facility CPT-79887 Level 4 Est. Patient 14:40:19 CDT Tu Landeros MD [facility] CPT-41566 Level 4 Est. Patient 14:06:04 VACCINE KEY CUSTOMER LEADER Tu Landeros MD [facility] CPT-93328 Level 3 Est. Patient 14:05:18 VACCINE KEY CUSTOMER LEADER Tu Landeros MD [facility] CPT-94442 Level 3 Est. Patient 10:06:54 VACCINE KEY CUSTOMER LEADER Miranda Suresh APRN [facility] CPT-21087 Level 4 Est. Patient 13:50:18 VACCINE KEY CUSTOMER LEADER Tu Landeros MD [facility] CPT-99174 Level 3 Est. Patient 10:30:04 CDT Tu Landeros MD [facility] CPT-10913 Level 4 Est. Patient 11:03:38 CDT Tu Landeros MD [facility] CPT-53385 Level 3 Est. Patient 10:20:44 CDT Fab Morales DO [facility] CPT-88423 Level 4 Est. Patient 14:38:57 CDT Tu Landeros MD [facility] CPT-72702 Level 4 Est. Patient 14:27:39 VACCINE KEY CUSTOMER LEADER Tu Landeros MD [facility] CPT-11204 Level 4 Est. Patient 09:45:25 CDT Tu Landeros MD [facility] CPT-27599 Level 4 Est. Patient 09:05:20 VACCINE KEY CUSTOMER LEADER Tu Landeros MD [facility] CPT-29700 Level 4 Est. Patient 14:09:06 CDT Tu Landeros MD [facility] CPT-10787 Level 3 Est. Patient 13:36:54 CDT Tu Landeros MD [facility] CPT-97684 Level 3 Est. Patient 08:59:14 CDT Tu Landeros MD [facility] CPT-19934 Level 3 Est. Patient 13:48:35 CDT Fab Morales DO [facility] CPT-50192 Level 4 Est. Patient 10:05:48 CDT Tu Landeros MD [facility] CPT-04530 Level 3 Est. Patient 13:38:42 CDT Marek BANKS [facility] CPT-28937 Level 5 Est. Patient 08:08:39 CDT Jerrica FRANCIS [facility] CPT-69061 Level 4 Est. Patient 14:23:38 CDT Tu Landeros MD [facility] CPT-63829 Level 3 Est. Patient 11:44:04 CDT Tu Landeros MD [facility] CPT-06953 Level 3 Est. Patient 11:03:20 VACCINE KEY CUSTOMER LEADER Tu Landeros MD [facility] CPT-22127 Level 3 Est. Patient 11:03:14 VACCINE KEY CUSTOMER LEADER Tu Landeros MD [facility] CPT-96665 Level 3 Est. Patient 12:42:49 CDT Tu Landeros MD [facility] CPT-63324 Level 3 Est. Patient 11:52:06 CDT Tu Landeros MD [facility] CPT-81852 Level 3 Est. Patient 13:58:11 CDT Tu Landeros MD [facility] CPT-70755 Level 3 Est. Patient 17:50:07 CDT Fab Morales DO [facility] CPT-06743 Level 3 Est. Patient 12:06:29 CDT Elvira Cervantes MD [facility] CPT-71668 Level 3 Est. Patient 15:50:32 CDT Tu Landeros MD [facility] CPT-58107 Level 4 Est. Patient 16:08:29 CDT Tu Landeros MD [facility] CPT-16500 Level 3 Est. Patient 16:04:19 CDT Tu Landeros MD [facility] CPT-68987 Level 3 Est. Patient 11:22:30 VACCINE KEY CUSTOMER LEADER Tu Landeros MD [facility] CPT-38484 Level 4 Est. Patient 16:24:02 VACCINE KEY CUSTOMER LEADER Tu Landeros MD [facility] CPT-03044 Level 3 Est. Patient 17:21:23 VACCINE KEY CUSTOMER LEADER Tu Landeros MD [facility] Procedures Code Procedure Name Date Entry Date Standard Description CPT-89445 Magnesium - LAB USE ONLY 11:14:20 VACCINE KEY CUSTOMER LEADER CPT-69417 Lipid - LAB USE ONLY 11:14:20 VACCINE KEY CUSTOMER LEADER CPT-95613 HGBA1C - LAB USE ONLY 11:14:20 VACCINE KEY CUSTOMER LEADER CPT-75922 CMP - LAB USE ONLY 11:14:19 VACCINE KEY CUSTOMER LEADER CPT-65572 CBC - LAB USE ONLY 11:14:19 VACCINE KEY CUSTOMER LEADER CPT-02251 Venipuncture Draw Fee 11:14:18 VACCINE KEY CUSTOMER LEADER CPT-55233 First Vx - Ix admin for Medicare patients 16:46:52 CDT CPT-62205 Fluzone Preservative Free Intramuscular Suspension 16:46 :51 CDT CPT-23950 CBC - LAB USE ONLY 17:14:46 CDT CPT-54162 HGBA1C - LAB USE ONLY 17:14:46 CDT CPT-69752 Venipuncture Draw Fee 17:14:46 CDT CPT-G0438 Initial Annual Wellness Exam 14:13:04 CDT CPT-36457 Breathing Tx 10:06:54 VACCINE KEY CUSTOMER LEADER CPT-03261 Postop F/U Visit 10:02:45 CDT CPT-LR Lesion Removal 09:02:56 CDT CPT-JTINJ Asp/Joint Injection 15:51:27 VACCINE KEY CUSTOMER LEADER CPT-OV Office Visit 15:52:02 VACCINE KEY CUSTOMER LEADER CPT-OV Office Visit 15:45:11 CDT CPT-000 Give Zostavax 14:09:06 CDT CPT-46730 Administration single or combination vaccine inc oral 15 :19:04 CDT CPT-93371 Zoster Vaccine (Zostavax) 15:19:04 CDT CPT-05104 Administration single or combination vaccine inc oral 20 :51:03 CDT CPT-80202 Influenza split virus > age 3 20:51:03 CDT CPT-52141 No Charge Offi Visit 14:52:03 CDT CPT-OV Office Visit 14:57:43 CDT CPT-OV Office Visit 15:22:32 CDT CPT-30687 Administration single or combination vaccine inc oral 11 :33:15 CDT CPT-16732 Influenza split virus > age 3 11:33:15 CDT
--- OUTSIDE RECORDS SUMMARY | 2018-04-25 16:22 | XMS REPORT | Clinical Summary ---
Author Author Admin, SACHI Clemons [facility] Address Unknown Phone Unavailable Allergies, Adverse [...] Carpal tunnel syndrome ARTHRITIS 716.90 Resolved Tu Lanedros MD Arthropathy, unspecified, site unspecified KNEE PAIN [...] twice daily until bottle empty FLUTICASONE PROPIONATE 87932986450 Active Fab Morales DO Active PREDNISONE 20 MG TAB 2 tablets once daily for 2 days, then 1 tablet once daily for 2 days PREDNISONE 11333841978 Active Fab Morales DO Active DICLOFENAC SODIUM 50 MG TBEC 1 tablet by mouth three times a day as needed DICLOFENAC SODIUM 23471143055 No Longer Active Fab Morales DO Active METFORMIN HCL 850 MG TABS 1 tablet by mouth twice daily METFORMIN HCL 00159666591 Active Tu Landeros MD Active TRUEDRAW LANCING DEVICE MISC test blood sugar twice daily dx: 250.00 LANCET DEVICES 30994511394 Active Tu Landeros MD Active TRUEDRAW LANCING DEVICE MISC Test twice a day dx 250.0 LANCET DEVICES 73974481516 Active Tu Landeros MD Active TRUERESULT BLOOD GLUCOSE W/DEVICE KIT test blood sugar twice daily dx 250.00 BLOOD GLUCOSE MONITORING SUPPL 23608083669 Active Tu Landeros MD Active TRUETEST TEST INVITR STRP test blood sugar twice daily. DX 250.0 GLUCOSE BLOOD 10118775940 Active Tu Landeros MD Active EMBRACE BLOOD GLUCOSE TEST STRP test blood sugar twice daily DX 250.0 2014 GLUCOSE BLOOD 98088414183 No Longer Active Tu Landeros MD Active TRUETEST TEST STRP test blood sugar three times daily dx: 250.00 GLUCOSE BLOOD 11483975848 No Longer Active Suze Hardenehart NURYSMahendra Active TRUERESULT BLOOD GLUCOSE W/DEVICE KIT use to test blood sugar tid dx: 250.00 BLOOD GLUCOSE MONITORING SUPPL 21577123568 No Longer Active Suze Hardenosbaldo VOGEL Active ALIGN 4 MG CAPS 1 tid PROBIOTIC PRODUCT 92619370186 No Longer Active Shaun Sy MD Active CIPRO 500 MG TABS 1 bid x 14 days start 09-28-13 CIPROFLOXACIN HCL 06247375869 No Longer Active Shaun Sy MD Active TRAMADOL HCL 50 MG TABS 1-2 tablets every 6 hours as needed for pain TRAMADOL HCL 62979020233 Active Tu Landeros MD Active HYDROCODONE-ACETAMINOPHEN 5-325 MG TABS 1 tab by mouth every 6 hours as needed for pain HYDROCODONE-ACETAMINOPHEN 46004785369 No Longer Active Tu Landeros MD Active OMEPRAZOLE 20 MG CPDR 1 po q a.m. OMEPRAZOLE 92808759359 Active Elvira Cervantes MD PhD Active GABAPENTIN 100 MG CAPS 1 po bid GABAPENTIN 95189389108 No Longer Active Tu Landeros MD Active B-12 100 MCG TABS Take one by mouth daily CYANOCOBALAMIN 75745045242 No Longer Active Tu Landeros MD Active GABAPENTIN 100 MG CAPS by mouth twice a day GABAPENTIN 18680603168 Active Tu Landeros MD Active BACTRIM DS 800-160 MG TABS 1 bid x 14 day start 09-28-13 SULFAMETHOXAZOLE-TRIMETHOPRIM 23009874981 No Longer Active Tu Landeros MD Active SIMVASTATIN 40 MG TABS 1 tab daily at bedtime SIMVASTATIN 89936056405 Active Tu Landeros MD Active CARVEDILOL 12.5 MG TABS 1 po BID CARVEDILOL 35142703153 Active Tu Landeros MD Active SUPER B COMPLEX/VITAMIN C TABS 1 qd B COMPLEX-C 84069078314 Active JASPREET Peerz Active TRILIPIX 135 MG CPDR 1 q hs CHOLINE FENOFIBRATE 74241241618 Active Tu Landeros MD Active FENOFIBRATE 145 MG TABS 1 po qd FENOFIBRATE 14691979569 No Longer Active JASPREET Perez Active OMEPRAZOLE 20 MG TBEC 1 PO 30 MIN BEFORE 1ST MEAL OMEPRAZOLE 37955181937 No Longer Active JASPREET Perez Active SIMVASTATIN 40 MG TABS Take one by mouth daily SIMVASTATIN 00217104602 No Longer Active JASPREET Perez Active VENLAFAXINE HCL 37.5 MG TABS 1 bid VENLAFAXINE HCL 16901936814 Active Tu Landeros MD Active VENLAFAXINE HCL 75 MG TABS 1 po BID VENLAFAXINE HCL 47185890502 No Longer Active JASPREET Perez Active CIPRO 500 MG TAB 1 tablet by mouth twice daily CIPROFLOXACIN HCL 56661695067 No Longer Active Tu Landeros MD Active VENLAFAXINE HCL 37.5 MG TABS 1 po BID VENLAFAXINE HCL 55112761163 No Longer Active Suzebianca VOGEL Active [employer] STOOL SOFTENER 100 MG CAPS 1 tab daily DOCUSATE SODIUM 29333032515 Active Tu Landeros MD Active LAMISIL 250 MG TAB 1 po qd TERBINAFINE HCL 37633596064 No Longer Active Tu Landeros MD Active LORTAB 5 5-500 MG TABS 1/2 to 1 tablet by mouth every 4 hours as needed for pain HYDROCODONE-ACETAMINOPHEN 46323044326 No Longer Active Tu Landeros MD Active ENALAPRIL MALEATE 20 MG TABS 1.5 po qd ENALAPRIL MALEATE 65461135765 Active Tu Landeors MD Active HYDROCODONE-ACETAMINOPHEN 5-500 MG TABS take one po Q 4-6 hours prn HYDROCODONE-ACETAMINOPHEN 27286810552 No Longer Active Tu Landeros MD Active BACTRIM DS 800-160 MG TABS 1 po BID x 7 days SULFAMETHOXAZOLE-TRIMETHOPRIM 83913939123 No Longer Active Tu Landeros MD Active VENLAFAXINE HCL 75 MG TABS 1 po BID VENLAFAXINE HCL 45198163222 No Longer Active Elvira Cervantes MD PhD Active TRAMADOL HCL 50 MG TABS 1 tablets every 6 hours as needed for pain TRAMADOL HCL 72551195332 No Longer Active Tu Landeros MD Active ACCU-CHEK FASTCLIX LANCETS MISC Use to check bloodsugar three times daily as needed LANCETS 38499235216 No Longer Active Tu Landeros MD Active ACCU-CHEK KEYONA PLUS STRP Use for testing bloodsugars three times daily as needed GLUCOSE BLOOD 61661748141 No Longer Active Tu Landeros MD Active ACCU-CHEK KEYONA PLUS W/DEVICE KIT Use for testing bloodsugars three times daily as needed BLOOD GLUCOSE MONITORING SUPPL 22062950392 No Longer Active Tu Landeros MD Active SPIRONOLACTONE 25 MG TAB 0.5 tablet by mouth daily SPIRONOLACTONE 04300919827 No Longer Active Tu Landeros MD Active ALPRAZOLAM 0.5 MG TABS 1 tab every 6hrs as needed ALPRAZOLAM 64469010490 No Longer Active Tu Landeros MD Active AUGMENTIN 875-125 MG TAB 1 tab by mouth twice daily with food AMOXICILLIN-POT CLAVULANATE 89208685854 No Longer Active Tu Landeros MD Active PREDNISONE 20 MG TAB 2 tabs daily for 3 days, 1 tab daily for 3 days, 1/2 tab daily for 2 days PREDNISONE 00724123368 No Longer Active Tu Landeros MD Active XANAX 0.5 MG TABS 1 tablet every 6 hrs prn ALPRAZOLAM 05294954431 No Longer Active Tu Landeros MD Active PREDNISONE 20 MG TAB 2 tabs daily for 3 days, 1 tab daily for 3 days, 1/2 tab daily for 2 days PREDNISONE 94235565783 No Longer Active Tu Landeros MD Active TRIAMCINOLONE ACETONIDE 0.1 % OINT Apply to affected areas TID for up to 2 weeks TRIAMCINOLONE ACETONIDE 86549746610 No Longer Active Tu Landeros MD Active LORTAB 5 5-500 MG TABS 1/2 to 1 tablet by mouth every 4 hours as needed for pain HYDROCODONE-ACETAMINOPHEN 38599400358 No Longer Active Tu Landeros MD Active MULTIVITAMINS TABS Take one by mouth daily MULTIPLE VITAMIN 24408444639 No Longer Active Tu Landeros MD Active MELATONIN 5 MG TABS Take one by mouth daily MELATONIN 80332728324 No Longer Active Tu Landeros MD Active SOMA 350 MG TAB 1 po q 6 hours prn spasm CARISOPRODOL 88059780611 No Longer Active Tu Landeros MD Active MECLIZINE HCL 25 MG CHEW TAB 1 four times a day as needed for dizziness 08/05 MECLIZINE HCL 67254455706 No Longer Active Fab Morales DO Active ANGEL BREEZE 2 TEST DISK test tid prn GLUCOSE BLOOD 11004474838 No Longer Active Negra Scott RN Active REGLAN 10 MG TAB 1 po TID PRN Nausea METOCLOPRAMIDE HCL 05528189832 No Longer Active Tu Landeros MD Active METFORMIN HCL 500 MG TABS 1 PO BID METFORMIN HCL 15648238126 No Longer Active Tu Landeros MD Active AMBIEN 10 MG TAB 1 tab by mouth at bedtime as needed for sleep ZOLPIDEM TARTRATE 62299649094 No Longer Active Tu Landeros MD Active FLUOXETINE HCL 40 MG CAPS 1 po q day FLUOXETINE HCL 94069987809 No Longer Active Mayra Terry Active FISH OIL 1000 MG CAPS Take one by mouth daily OMEGA-3 FATTY ACIDS 75371505956 Active Tu Landeros MD Active GLUCOSAMINE 500 MG TABS Take 2 tab po qd GLUCOSAMINE 76577701755 Active Tu Landeros MD Active TRILIPIX 135 MG CPDR 1 po qd CHOLINE FENOFIBRATE 45009141475 No Longer Active Tu Landeros MD Active ASPIRIN 81 MG CHEW TAB 1 tablet by mouth daily ASPIRIN 77197884451 Active Tu Landeros MD Active FUROSEMIDE 40 MG TAB 1 tablet by mouth daily FUROSEMIDE 37276851113 Active Tu Landeros MD Active REQUIP 2 MG TABS Take one tablet at bedtime prn ROPINIROLE HCL 64411604608 Active Tu Landeros MD Active KLOR-CON 10 10 MEQ CR-TABS TAKE 2 TABS DAILY POTASSIUM CHLORIDE 92851347480 Active Tu Landeros MD Active AMBIEN 10 MG TAB 1 tab by mouth at bedtime as needed for sleep AMBIEN 10 MG TAB 324258 ZOLPIDEM TARTRATE Inactive METFORMIN HCL 500 MG TABS 1 PO BID METFORMIN HCL 500 MG TABS 937241 METFORMIN HCL Inactive REGLAN 10 MG TAB 1 po TID PRN Nausea REGLAN 10 MG TAB 911321 METOCLOPRAMIDE HCL Inactive MECLIZINE HCL 25 MG CHEW TAB 1 four times a day as needed for dizziness 08/05 MECLIZINE HCL 25 MG CHEW TAB 814634 MECLIZINE HCL Inactive SOMA 350 MG TAB 1 po q 6 hours prn spasm SOMA 350 MG TAB 435056 CARISOPRODOL Inactive MELATONIN 5 MG TABS Take one by mouth daily MELATONIN 5 MG TABS 457087 MELATONIN Inactive MULTIVITAMINS TABS Take one by mouth daily MULTIVITAMINS TABS MULTIPLE VITAMIN Inactive LORTAB 5 5-500 MG TABS 1/2 to 1 tablet by mouth every 4 hours as needed for pain LORTAB 5 5-500 MG TABS HYDROCODONE- ACETAMINOPHEN Inactive XANAX 0.5 MG TABS 1 tablet every 6 hrs prn XANAX 0.5 MG TABS 689193 ALPRAZOLAM Inactive AUGMENTIN 875-125 MG TAB 1 tab by mouth twice daily with food AUGMENTIN 875-125 MG TAB 647869 AMOXICILLIN-POT CLAVULANATE Inactive ALPRAZOLAM 0.5 MG TABS 1 tab every 6hrs as needed ALPRAZOLAM 0.5 MG TABS 943316 ALPRAZOLAM Inactive SPIRONOLACTONE 25 MG TAB 0.5 tablet by mouth daily SPIRONOLACTONE 25 MG TAB 343768 SPIRONOLACTONE Inactive ACCU-CHEK KEYONA PLUS W/DEVICE KIT Use for testing bloodsugars three times daily as needed ACCU-CHEK KEYONA PLUS W/DEVICE KIT BLOOD GLUCOSE MONITORING SUPPL Inactive ACCU-CHEK KEYONA PLUS STRP Use for testing bloodsugars three times daily as needed ACCU-CHEK KEYONA PLUS STRP GLUCOSE BLOOD Inactive ACCU-CHEK FASTCLIX LANCETS MISC Use to check bloodsugar three times daily as needed ACCU-CHEK FASTCLIX LANCETS MISC 53068071447 LANCETS Inactive TRAMADOL HCL 50 MG TABS 1 tablets every 6 hours as needed for pain TRAMADOL HCL 50 MG TABS 705662 TRAMADOL HCL Inactive VENLAFAXINE HCL 75 MG TABS 1 po BID VENLAFAXINE HCL 75 MG TABS 914168 VENLAFAXINE HCL Inactive HYDROCODONE-ACETAMINOPHEN 5-500 MG TABS take one po Q 4-6 hours prn HYDROCODONE-ACETAMINOPHEN 5-500 MG TABS HYDROCODONE- ACETAMINOPHEN Inactive LORTAB 5 5-500 MG TABS 1/2 to 1 tablet by mouth every 4 hours as needed for pain LORTAB 5 5-500 MG TABS HYDROCODONE- ACETAMINOPHEN Inactive LAMISIL 250 MG TAB 1 po qd LAMISIL 250 MG TAB 103009 TERBINAFINE HCL Inactive VENLAFAXINE HCL 37.5 MG TABS 1 po BID VENLAFAXINE HCL 37.5 MG TABS 661258 VENLAFAXINE HCL Inactive CIPRO 500 MG TAB 1 tablet by mouth twice daily CIPRO 500 MG TAB 200451 CIPROFLOXACIN HCL Inactive VENLAFAXINE HCL 75 MG TABS 1 po BID VENLAFAXINE HCL 75 MG TABS 828206 VENLAFAXINE HCL Inactive SIMVASTATIN 40 MG TABS Take one by mouth daily SIMVASTATIN 40 MG TABS 106093 SIMVASTATIN Inactive OMEPRAZOLE 20 MG TBEC 1 PO 30 MIN BEFORE 1ST MEAL OMEPRAZOLE 20 MG TBEC 597728 OMEPRAZOLE Inactive FENOFIBRATE 145 MG TABS 1 po qd FENOFIBRATE 145 MG TABS 004999 FENOFIBRATE Inactive BACTRIM DS 800-160 MG TABS 1 bid x 14 day start 09-28-13 BACTRIM DS 800-160 MG TABS SULFAMETHOXAZOLE-TRIMETHOPRIM Inactive B-12 100 MCG TABS Take one by mouth daily B-12 100 MCG TABS CYANOCOBALAMIN Inactive GABAPENTIN 100 MG CAPS 1 po bid GABAPENTIN 100 MG CAPS 102837 GABAPENTIN Inactive HYDROCODONE-ACETAMINOPHEN 5-325 MG TABS 1 tab by mouth every 6 hours as needed for pain HYDROCODONE-ACETAMINOPHEN 5-325 MG TABS 154740 HYDROCODONE-ACETAMINOPHEN Inactive CIPRO 500 MG TABS 1 bid x 14 days start 09-28-13 CIPRO 500 MG TABS 762586 CIPROFLOXACIN HCL Inactive ALIGN 4 MG CAPS [...] as needed DICLOFENAC SODIUM 50 MG TBEC 278055 DICLOFENAC SODIUM Inactive TRIAMCINOLONE ACETONIDE 0.1 % OINT Apply to affected areas TID for up to 2 weeks TRIAMCINOLONE ACETONIDE 0.1 % OINT 2460297 TRIAMCINOLONE ACETONIDE Inactive PREDNISONE 20 MG TAB 2 tabs daily for 3 days, 1 tab daily for 3 days, 1/2 tab daily for 2 days PREDNISONE 20 MG TAB 882686 PREDNISONE Inactive PREDNISONE 20 MG TAB 2 tabs daily for 3 days, 1 tab daily for 3 days, 1/2 tab daily for 2 days PREDNISONE 20 MG TAB 101507 PREDNISONE Inactive BACTRIM DS 800-160 MG TABS 1 po BID x 7 days BACTRIM DS 800-160 MG TABS SULFAMETHOXAZOLE-TRIMETHOPRIM Inactive Immunizations Vaccine Administration Date Value Standard Description Seasonal influenza vaccine, injectable, containing preservative, for > 3 years old (Afluria, FluLaval, Fluzone, Fluvirin, Fluarix, Agriflu(>=18 yo)) Fluzone (>3 yrs.) [[id number]] Influenza, seasonal, injectable influenza immunization (Flu Vax) has been administered 02/22/2012 influenza virus vaccine, unspecified formulation Seasonal influenza vaccine, injectable, containing preservative, for > 3 years old (Afluria, FluLaval, Fluzone, Fluvirin, Fluarix, Agriflu(>=18 yo)) Fluzone (>3 yrs.) [[id number]] Influenza, seasonal, injectable Vital Signs Date Name [...] CBC - Chemistry sodium, serum 143 mmol/L 968-135 1505/03/10 potassium, serum 4.9 mmol/L 3.5-5.2 chloride, serum [...] 0.30 mg/dL 0.00-1.00 cholesterol, serum 111 mg/dL 411-433 1663/07/28 triglyceride, serum, fasting 177 mg/dL 30-200 HDL [...] mg/dL Encounters Code Encounter Date Provider Facility CPT-39259 Level 3 Est. Patient 10:20:44 CDT Fab Morales DO [facility] CPT-34012 Level 4 Est. Patient 14:38:57 CDT Tu Landeros MD [facility] CPT-44188 Level 4 Est. Patient 14:27:39 DENTAL SERVICES DIRECTOR Tu Landeros MD [facility] CPT-14082 Level 4 Est. Patient 09:45:25 CDT Tu Landeros MD [facility] CPT-08006 Level 4 Est. Patient 09:05:20 DENTAL SERVICES DIRECTOR Tu Landeros MD [facility] CPT-07232 Level 4 Est. Patient 14:09:06 CDT Tu Landeros MD [facility] CPT-10001 Level 3 Est. Patient 13:36:54 CDT Tu Landeros MD [facility] CPT-62250 Level 3 Est. Patient 08:59:14 CDT Tu Landeros MD [facility] CPT-38164 Level 3 Est. Patient 13:48:35 CDT Fab Morales DO [facility] CPT-85383 Level 4 Est. Patient 10:05:48 CDT Tu Landeros MD [facility] CPT-64584 Level 3 Est. Patient 13:38:42 CDT Marek BANKS [facility] CPT-37995 Level 5 Est. Patient 08:08:39 CDT Jerrica FRANCIS [facility] CPT-97323 Level 4 Est. Patient 14:23:38 CDT Tu Landeros MD [facility] CPT-61889 Level 3 Est. Patient 11:44:04 CDT Tu Landeros MD [facility] CPT-69834 Level 3 Est. Patient 11:03:20 DENTAL SERVICES DIRECTOR Tu Landeros MD [facility] CPT-19061 Level 3 Est. Patient 11:03:14 DENTAL SERVICES DIRECTOR Tu Landeros MD [facility] CPT-10662 Level 3 Est. Patient 12:42:49 CDT Tu Landeros MD [facility] CPT-82350 Level 3 Est. Patient 11:52:06 CDT Tu Landeros MD [facility] CPT-48775 Level 3 Est. Patient 13:58:11 CDT Tu Landeros MD [facility] CPT-31421 Level 3 Est. Patient 17:50:07 CDT Fab Morales DO [facility] CPT-30029 Level 3 Est. Patient 12:06:29 CDT Elvira Cervantes MD PhD [facility] CPT-84421 Level 3 Est. Patient 15:50:32 CDT Tu Landeros MD [facility] CPT-94960 Level 4 Est. Patient 16:08:29 CDT Tu Landeros MD [facility] CPT-85108 Level 3 Est. Patient 16:04:19 CDT Tu Landeros MD [facility] CPT-48599 Level 3 Est. Patient 11:22:30 DENTAL SERVICES DIRECTOR Tu Landeros MD [facility] CPT-38433 Level 4 Est. Patient 16:24:02 DENTAL SERVICES DIRECTOR Tu Landeros MD [facility] CPT-43392 Level 3 Est. Patient 17:21:23 DENTAL SERVICES DIRECTOR Tu Landeros MD [facility] Procedures Code Procedure Name Date Entry Date Standard Description CPT-JTINJ Asp/Joint Injection 15:51:27 DENTAL SERVICES DIRECTOR CPT-OV Office Visit 15:52:02 DENTAL SERVICES DIRECTOR CPT-OV Office Visit 15:45:11 CDT CPT-000 Give Zostavax 14:09:06 CDT CPT-41284 Administration single or combination vaccine inc oral 15 :19:04 CDT CPT-40936 Zoster Vaccine (Zostavax) 15:19:04 CDT CPT-79200 Administration single or combination vaccine inc oral 20 :51:03 CDT CPT-82534 Influenza split virus > age 3 20:51:03 CDT CPT-31175 No Charge Offi Visit 14:52:03 CDT CPT-OV Office Visit 14:57:43 CDT CPT-OV Office Visit 15:22:32 CDT CPT-23400 Administration single or combination vaccine inc oral 11 :33:15 CDT CPT-03607 Influenza split virus > age 3 11:33:15 CDT
--- OUTSIDE RECORDS SUMMARY | 2018-04-25 16:23 | XMS REPORT | Clinical Summary ---
Author Author Admin, SACHI Organization [facility] Address Unknown Phone Unavailable Allergies, Adverse Reactions, [...] po TID PRN Muscle Spasm CYCLOBENZAPRINE HCL 67006922598 Active Tu Landeros MD Active DICLOFENAC SODIUM 50 MG ORAL TBEC 1 po BID PRN Pain DICLOFENAC SODIUM 40303669747 Delores Landeros MD Active INVOKANA 100 MG ORAL TABS 1 po qd CANAGLIFLOZIN 07782857033 Active Tu Landeros MD Active GLIPIZIDE 5 MG ORAL TABS 1 po qd GLIPIZIDE 57435996031 No Longer Active Tu Landeros MD Active VENLAFAXINE HCL 75 MG ORAL TABS 1 po BID VENLAFAXINE HCL 66510690210 Active Tu Landeros MD Active GLIMEPIRIDE 1 MG ORAL TABS 1 po qd GLIMEPIRIDE 07073426007 No Longer Active Tu Landeros MD Active TRUE METRIX BLOOD GLUCOSE TEST INVITR STRP Test blood sugar BID Dx: E11.9 GLUCOSE BLOOD 76359275177 Active Tu Landeros MD Active TRUE METRIX AIR GLUCOSE METER W/DEVICE KIT Test blood glucose BID Dx: E11.9 BLOOD GLUCOSE MONITORING SUPPL 66518377428 Active Tu Landeros MD Active TRUETEST TEST INVITR STRP test blood sugar twice daily. DX 250.0 GLUCOSE BLOOD 77858544949 No Longer Active Mirna Stanley LPN Active TRUEDRAW LANCING DEVICE MISC test blood sugar twice daily dx: 250.00 LANCET DEVICES 64439051264 No Longer Active Mirna Stanley LPN Active ENALAPRIL MALEATE 20 MG TABS 2 po qd ENALAPRIL MALEATE 30179829411 Active Tu Landeros MD Active SUPER B COMPLEX/VITAMIN C TABS 1 qd B COMPLEX-C 37117186848 No Longer Active Tu Landeros MD Active ASPIRIN EC 81 MG ORAL TBEC 1 po qd ASPIRIN 85394303349 Active Tu Landeros MD Active GLUCOSAMINE 500 MG TABS 2 po qd GLUCOSAMINE Active Tu Landeros MD Active SIMVASTATIN 40 MG TABS 0.5 po qHS SIMVASTATIN 45678113199 Active Tu Landeros MD Active FISH OIL 1000 MG CAPS 1 po qd OMEGA-3 FATTY ACIDS 64531511462 Active Tu Landeros MD Active METFORMIN HCL 1000 MG TABS 1 po BID METFORMIN HCL 97825610792 Active Tu Landeros MD Active KLOR-CON 10 10 MEQ CR-TABS 2 po qd POTASSIUM CHLORIDE 77902970130 Active Tu Landeros MD Active FUROSEMIDE 40 MG TAB 1 po qd FUROSEMIDE 67777636911 Active Tu Landeros MD Active REQUIP 2 MG ORAL TABS 1 po qHS PRN Restless legs ROPINIROLE HCL 43769819245 Active Tu Landeros MD Active GABAPENTIN 100 MG CAPS 1 po BID GABAPENTIN 70892876414 Active Tu Landeros MD Active REQUIP 2 MG TABS Take one tablet at bedtime prn ROPINIROLE HCL 93690038592 No Longer Active Tu Landeros MD Active VENTOLIN HFA 108 (90 BASE) MCG/ACT AERS 1-2 puffs every 4 hours if needed for cough/congestion ALBUTEROL SULFATE 42788937339 No Longer Active Ambika Aden APRN Active ZITHROMAX 250 MG TAB 2 po today, then 1 po q days 2-5 AZITHROMYCIN 59709433762 No Longer Active Miranda Suresh APRN Active FLONASE 50 MCG/ACT SUSP 1 spray each nostril twice daily until bottle empty FLUTICASONE PROPIONATE 73381671846 No Longer Active Tu Landeros MD Active COLACE 100 MG CAP 1 po BID PRN Constipation DOCUSATE SODIUM 50485024101 Active Tu Landeros MD Active TRUERESULT BLOOD GLUCOSE W/DEVICE KIT test blood sugar twice daily dx 250.00 BLOOD GLUCOSE MONITORING SUPPL 71135214170 No Longer Active Tu Landeros MD Active TRUEDRAW LANCING DEVICE MISC Test twice a day dx 250.0 LANCET DEVICES 25851362245 No Longer Active Tu Landeros MD Active PREDNISONE 20 MG TAB 2 tablets once daily for 2 days, then 1 tablet once daily for 2 days PREDNISONE 72529768285 No Longer Active Tu Landeros MD Active DICLOFENAC SODIUM 50 MG TBEC 1 tablet by mouth three times a day as needed DICLOFENAC SODIUM 19098641411 No Longer Active Fab W Andrew DO Active EMBRACE BLOOD GLUCOSE TEST STRP test blood sugar twice daily DX 250.0 2014 GLUCOSE BLOOD 05771958259 No Longer Active Tu Landeros MD Active TRUETEST TEST STRP test blood sugar three times daily dx: 250.00 GLUCOSE BLOOD 04756124097 No Longer Active Suze VOGEL Active TRUERESULT BLOOD GLUCOSE W/DEVICE KIT use to test blood sugar tid dx: 250.00 BLOOD GLUCOSE MONITORING SUPPL 89822127412 No Longer Active Suze Hardenehart RMA Active ALIGN 4 MG CAPS 1 tid PROBIOTIC PRODUCT 11844232571 No Longer Active Shaun Sy MD Active CIPRO 500 MG TABS 1 bid x 14 days start 09-28-13 CIPROFLOXACIN HCL 82451200831 No Longer Active Shaun Sy MD Active TRAMADOL HCL 50 MG TABS 1-2 tablets every 6 hours as needed for pain TRAMADOL HCL 22609641848 Active Tu Landeros MD Active HYDROCODONE-ACETAMINOPHEN 5-325 MG TABS 1 tab by mouth every 6 hours as needed for pain HYDROCODONE-ACETAMINOPHEN 73804429736 No Longer Active Tu Landeros MD Active OMEPRAZOLE 20 MG CPDR 1 po q a.m. OMEPRAZOLE 03142562785 Active Lesli Kellogg APRN Active GABAPENTIN 100 MG CAPS 1 po bid GABAPENTIN 02549025656 No Longer Active Tu Landeros MD Active B-12 100 MCG TABS Take one by mouth daily CYANOCOBALAMIN 07670074981 No Longer Active Tu Landeros MD Active BACTRIM DS 800-160 MG TABS 1 bid x 14 day start 09-28-13 SULFAMETHOXAZOLE-TRIMETHOPRIM 59426467341 No Longer Active Tu Landeros MD Active CARVEDILOL 12.5 MG TABS 1 po BID CARVEDILOL 98743796767 Active Tu Landeros MD Active TRILIPIX 135 MG CPDR 1 q hs CHOLINE FENOFIBRATE 24277025913 Active Tu Landeros MD Active FENOFIBRATE 145 MG TABS 1 po qd FENOFIBRATE 88867599629 No Longer Active JASPREET Perez Active OMEPRAZOLE 20 MG TBEC 1 PO 30 MIN BEFORE 1ST MEAL OMEPRAZOLE 40722142610 No Longer Active JASPREET Perez Active SIMVASTATIN 40 MG TABS Take one by mouth daily SIMVASTATIN 84165719308 No Longer Active JASPREET Perez Active VENLAFAXINE HCL 75 MG TABS 1 po BID VENLAFAXINE HCL 05973623799 No Longer Active JASPREET Perez Active CIPRO 500 MG TAB 1 tablet by mouth twice daily CIPROFLOXACIN HCL 17069504091 No Longer Active Tu Landeros MD Active VENLAFAXINE HCL 37.5 MG TABS 1 po BID VENLAFAXINE HCL 81321556198 No Longer Active Suze Nicole [facility] Active LAMISIL 250 MG TAB 1 po qd TERBINAFINE HCL 41459779449 No Longer Active Tu Landeros MD Active LORTAB 5 5-500 MG TABS 1/2 to 1 tablet by mouth every 4 hours as needed for pain HYDROCODONE-ACETAMINOPHEN 30833379546 No Longer Active Tu Landeros MD Active HYDROCODONE-ACETAMINOPHEN 5-500 MG TABS take one po Q 4-6 hours prn HYDROCODONE-ACETAMINOPHEN 98168123283 No Longer Active Tu Landeros MD Active BACTRIM DS 800-160 MG TABS 1 po BID x 7 days SULFAMETHOXAZOLE-TRIMETHOPRIM 38440767711 No Longer Active Tu Landeros MD Active VENLAFAXINE HCL 75 MG TABS 1 po BID VENLAFAXINE HCL 98132728603 No Longer Active Elvira Cervantes MD PhD Active TRAMADOL HCL 50 MG TABS 1 tablets every 6 hours as needed for pain TRAMADOL HCL 28002347697 No Longer Active Tu Landeros MD Active ACCU-CHEK FASTCLIX LANCETS MISC Use to check bloodsugar three times daily as needed LANCETS 81157220136 No Longer Active Tu Landeros MD Active ACCU-CHEK KEYONA PLUS STRP Use for testing bloodsugars three times daily as needed GLUCOSE BLOOD 72653958355 No Longer Active Tu Landeros MD Active ACCU-CHEK KEYONA PLUS W/DEVICE KIT Use for testing bloodsugars three times daily as needed BLOOD GLUCOSE MONITORING SUPPL 64620987325 No Longer Active Tu Landeros MD Active SPIRONOLACTONE 25 MG TAB 0.5 tablet by mouth daily SPIRONOLACTONE 08052460763 No Longer Active Tu Landeros MD Active ALPRAZOLAM 0.5 MG TABS 1 tab every 6hrs as needed ALPRAZOLAM 63789546302 No Longer Active Tu Landeros MD Active AUGMENTIN 875-125 MG TAB 1 tab by mouth twice daily with food AMOXICILLIN-POT CLAVULANATE 10832558454 No Longer Active Tu Landeros MD Active PREDNISONE 20 MG TAB 2 tabs daily for 3 days, 1 tab daily for 3 days, 1/2 tab daily for 2 days PREDNISONE 95371685648 No Longer Active Tu Landeros MD Active XANAX 0.5 MG TABS 1 tablet every 6 hrs prn ALPRAZOLAM 68949571879 No Longer Active Tu Landeros MD Active PREDNISONE 20 MG TAB 2 tabs daily for 3 days, 1 tab daily for 3 days, 1/2 tab daily for 2 days PREDNISONE 10979809400 No Longer Active Tu Landeros MD Active TRIAMCINOLONE ACETONIDE 0.1 % OINT Apply to affected areas TID for up to 2 weeks TRIAMCINOLONE ACETONIDE 80306170072 No Longer Active Tu Landeros MD Active LORTAB 5 5-500 MG TABS 1/2 to 1 tablet by mouth every 4 hours as needed for pain HYDROCODONE-ACETAMINOPHEN 00333670671 No Longer Active Tu Landeros MD Active MULTIVITAMINS TABS Take one by mouth daily MULTIPLE VITAMIN 85112657981 No Longer Active Tu Landeros MD Active MELATONIN 5 MG TABS Take one by mouth daily MELATONIN 98634321327 No Longer Active Tu Landeros MD Active SOMA 350 MG TAB 1 po q 6 hours prn spasm CARISOPRODOL 89973712441 No Longer Active Tu Landeros MD Active MECLIZINE HCL 25 MG CHEW TAB 1 four times a day as needed for dizziness 08/05 MECLIZINE HCL 53145333195 No Longer Active Fab Morales DO Active ANGEL BREEZE 2 TEST DISK test tid prn GLUCOSE BLOOD 42589929887 No Longer Active Negra Scott RN Active REGLAN 10 MG TAB 1 po TID PRN Nausea METOCLOPRAMIDE HCL 83165294290 No Longer Active Tu Landeros MD Active METFORMIN HCL 500 MG TABS 1 PO BID METFORMIN HCL 05797533100 No Longer Active Tu Landeros MD Active AMBIEN 10 MG TAB 1 tab by mouth at bedtime as needed for sleep ZOLPIDEM TARTRATE 19769826605 No Longer Active Tu Landeros MD Active FLUOXETINE HCL 40 MG CAPS 1 po q day FLUOXETINE HCL 26206667938 No Longer Active Mayra [place] Active TRILIPIX 135 MG CPDR 1 po qd CHOLINE FENOFIBRATE 86829528717 No Longer Active Tu Landeros MD Active AMBIEN 10 MG TAB 1 tab by mouth at bedtime as needed for sleep AMBIEN 10 MG TAB 834446 ZOLPIDEM TARTRATE Inactive METFORMIN HCL 500 MG TABS 1 PO BID METFORMIN HCL 500 MG TABS 922799 METFORMIN HCL Inactive REGLAN 10 MG TAB 1 po TID PRN Nausea REGLAN 10 MG TAB 734007 METOCLOPRAMIDE HCL Inactive MECLIZINE HCL 25 MG CHEW TAB 1 four times a day as needed for dizziness 08/05 MECLIZINE HCL 25 MG CHEW TAB 202623 MECLIZINE HCL Inactive SOMA 350 MG TAB 1 po q 6 hours prn spasm SOMA 350 MG TAB 333496 CARISOPRODOL Inactive MELATONIN 5 MG TABS Take one by mouth daily MELATONIN 5 MG TABS 408403 MELATONIN Inactive MULTIVITAMINS TABS Take one by mouth daily MULTIVITAMINS TABS MULTIPLE VITAMIN Inactive LORTAB 5 5-500 MG TABS 1/2 to 1 tablet by mouth every 4 hours as needed for pain LORTAB 5 5-500 MG TABS HYDROCODONE- ACETAMINOPHEN Inactive XANAX 0.5 MG TABS 1 tablet every 6 hrs prn XANAX 0.5 MG TABS 071482 ALPRAZOLAM Inactive AUGMENTIN 875-125 MG TAB 1 tab by mouth twice daily with food AUGMENTIN 875-125 MG TAB 068993 AMOXICILLIN-POT CLAVULANATE Inactive ALPRAZOLAM 0.5 MG TABS 1 tab every 6hrs as needed ALPRAZOLAM 0.5 MG TABS 429929 ALPRAZOLAM Inactive SPIRONOLACTONE 25 MG TAB 0.5 tablet by mouth daily SPIRONOLACTONE 25 MG TAB 742502 SPIRONOLACTONE Inactive ACCU-CHEK KEYONA PLUS W/DEVICE KIT Use for testing bloodsugars three times daily as needed ACCU-CHEK KEYONA PLUS W/DEVICE KIT BLOOD GLUCOSE MONITORING SUPPL Inactive ACCU-CHEK KEYONA PLUS STRP Use for testing bloodsugars three times daily as needed ACCU-CHEK KEYONA PLUS STRP GLUCOSE BLOOD Inactive ACCU-CHEK FASTCLIX LANCETS MISC Use to check bloodsugar three times daily as needed ACCU-CHEK FASTCLIX LANCETS MISC 79749610024 [facility] Inactive TRAMADOL HCL 50 MG TABS 1 tablets every 6 hours as needed for pain TRAMADOL HCL 50 MG TABS 035894 TRAMADOL HCL Inactive VENLAFAXINE HCL 75 MG TABS 1 po BID VENLAFAXINE HCL 75 MG TABS 995705 VENLAFAXINE HCL Inactive HYDROCODONE-ACETAMINOPHEN 5-500 MG TABS take one po Q 4-6 hours prn HYDROCODONE-ACETAMINOPHEN 5-500 MG TABS HYDROCODONE- ACETAMINOPHEN Inactive LORTAB 5 5-500 MG TABS 1/2 to 1 tablet by mouth every 4 hours as needed for pain LORTAB 5 5-500 MG TABS HYDROCODONE- ACETAMINOPHEN Inactive LAMISIL 250 MG TAB 1 po qd LAMISIL 250 MG TAB 932455 TERBINAFINE HCL Inactive VENLAFAXINE HCL 37.5 MG TABS 1 po BID VENLAFAXINE HCL 37.5 MG TABS 998333 VENLAFAXINE HCL Inactive CIPRO 500 MG TAB 1 tablet by mouth twice daily CIPRO 500 MG TAB 914986 CIPROFLOXACIN HCL Inactive VENLAFAXINE HCL 75 MG TABS 1 po BID VENLAFAXINE HCL 75 MG TABS 431982 VENLAFAXINE HCL Inactive SIMVASTATIN 40 MG TABS Take one by mouth daily SIMVASTATIN 40 MG TABS 757977 SIMVASTATIN Inactive OMEPRAZOLE 20 MG TBEC 1 PO 30 MIN BEFORE 1ST MEAL OMEPRAZOLE 20 MG TBEC 375118 OMEPRAZOLE Inactive FENOFIBRATE 145 MG TABS 1 po qd FENOFIBRATE 145 MG TABS 608107 FENOFIBRATE Inactive BACTRIM DS 800-160 MG TABS 1 bid x 14 day start 09-28-13 BACTRIM DS 800-160 MG TABS 008382 SULFAMETHOXAZOLE-TRIMETHOPRIM Inactive B-12 100 MCG TABS Take one by mouth daily B-12 100 MCG TABS CYANOCOBALAMIN Inactive GABAPENTIN 100 MG CAPS 1 po bid GABAPENTIN 100 MG CAPS 630153 GABAPENTIN Inactive HYDROCODONE-ACETAMINOPHEN 5-325 MG TABS 1 tab by mouth every 6 hours as needed for pain HYDROCODONE-ACETAMINOPHEN 5-325 MG TABS 707420 HYDROCODONE-ACETAMINOPHEN Inactive CIPRO 500 MG TABS 1 bid x 14 days start 09-28-13 CIPRO 500 MG TABS 718584 CIPROFLOXACIN HCL Inactive ALIGN 4 MG CAPS [...] as needed DICLOFENAC SODIUM 50 MG TBEC 729711 DICLOFENAC SODIUM Inactive PREDNISONE 20 MG TAB 2 tablets once daily for 2 days, then 1 tablet once daily for 2 days PREDNISONE 20 MG TAB 769427 PREDNISONE Inactive TRUEDRAW LANCING DEVICE MISC Test twice a day dx 250.0 TRUEDRAW LANCING DEVICE MISC LANCET DEVICES Inactive TRUERESULT BLOOD GLUCOSE W/DEVICE KIT test blood sugar twice daily dx 250.00 TRUERESULT BLOOD GLUCOSE W/DEVICE KIT BLOOD GLUCOSE MONITORING SUPPL Inactive FLONASE 50 MCG/ACT SUSP 1 spray each nostril twice daily until bottle empty FLONASE 50 MCG/ACT SUSP 6337353 FLUTICASONE PROPIONATE Inactive VENTOLIN HFA 108 (90 BASE) MCG/ACT AERS 1-2 puffs every 4 hours if needed for cough/congestion VENTOLIN HFA 108 (90 BASE) MCG/ACT AERS ALBUTEROL SULFATE Inactive REQUIP 2 MG TABS Take one tablet at bedtime prn REQUIP 2 MG TABS 029515 ROPINIROLE HCL Inactive SUPER B COMPLEX/VITAMIN C TABS 1 qd SUPER B COMPLEX/ VITAMIN C TABS 97407202985 B COMPLEX-C Inactive TRUEDRAW LANCING DEVICE MISC test blood sugar twice daily dx: 250.00 TRUEDRAW LANCING DEVICE MISC LANCET DEVICES Inactive TRUETEST TEST INVITR STRP test blood sugar twice daily. DX 250.0 TRUETEST TEST INVITR STRP GLUCOSE BLOOD Inactive TRIAMCINOLONE ACETONIDE 0.1 % OINT Apply to affected areas TID for up to 2 weeks TRIAMCINOLONE ACETONIDE 0.1 % OINT 8455925 TRIAMCINOLONE ACETONIDE Inactive PREDNISONE 20 MG TAB 2 tabs daily for 3 days, 1 tab daily for 3 days, 1/2 tab daily for 2 days PREDNISONE 20 MG TAB 974913 PREDNISONE Inactive PREDNISONE 20 MG TAB 2 tabs daily for 3 days, 1 tab daily for 3 days, 1/2 tab daily for 2 days PREDNISONE 20 MG TAB 725551 PREDNISONE Inactive BACTRIM DS 800-160 MG TABS 1 po BID x 7 days BACTRIM DS 800-160 MG TABS 885605 SULFAMETHOXAZOLE-TRIMETHOPRIM Inactive ZITHROMAX 250 MG TAB 2 po today, then 1 po q days 2-5 ZITHROMAX 250 MG TAB 4349069 AZITHROMYCIN Inactive Advance Directives Directive Description Start Date DISCUSSED WITH PATIENT -- NO DECISION MADE Immunizations Vaccine Administration Date Value Standard Description Seasonal influenza vaccine, injectable, containing preservative, for > 3 years old (Afluria, FluLaval, Fluzone, Fluvirin, Fluarix, Agriflu(>=18 yo)) Fluzone (>3 yrs.) [[id number]] Influenza, seasonal, injectable influenza immunization (Flu Vax) has been administered 02/22/2012 influenza virus vaccine, unspecified formulation Seasonal influenza vaccine, injectable, containing preservative, for > 3 years old (Afluria, FluLaval, Fluzone, Fluvirin, Fluarix, Agriflu(>=18 yo)) Fluzone (>3 yrs.) [[id number]] Influenza, seasonal, injectable Vital Signs Date Name [...] Magnesium - Chemistry sodium, serum 143 mmol/L 121-323 3243/01/10 carbon dioxide, venous blood 28.0 mmol/L 21.0-32.0 potassium, serum 4.5 mmol/L 3.5-5.2 chloride, serum 104 mmol/L 98-107 blood glucose 158 mg/dL 65-110 urea nitrogen, blood 23 mg/dL 7-18 creatinine, serum 1.06 mg/dL 0.55-1.30 alanine aminotransferase (SGPT), serum 42 U/L 12-78 aspartate aminotransferase (SGOT), serum 32 U/L 15-37 calcium, serum 9.3 mg/dL 8.5-10.1 bilirubin, serum, total 0.20 mg/dL 0.00-1.00 cholesterol, serum 177 mg/dL 084-504 1863/01/10 triglyceride, serum, fasting 320 mg/dL 30-200 HDL cholesterol, serum 46 mg/dL 32-96 LDL cholesterol, serum 67 mg/dL 0-130 Lab Report: COMPREHENSIVE METABOLIC PANEL, LIPID PANEL, HEMOGLOBIN A1c - Chemistry cholesterol, serum 135 mg/dL 949-640 3322/05/17 HDL cholesterol, serum 41 mg/dL > OR=46 triglyceride, serum, fasting 206 mg/dL <150 LDL cholesterol, serum 53 MG/DL (CALC) mg/dL <130 cholesterol/HDL ratio, serum 3.3 (calc) < OR=5.0 Lab Report: HGBA1C - Chemistry hemoglobin A1C, blood, as % of total hemoglobin 7.4 % 4.3-6.0 sodium, serum 140 mmol/L 242-381 0238/09/07 potassium, serum 4.3 mmol/L 3.5-5.2 chloride, serum [...] <30 Encounters Code Encounter Date Provider Facility CPT-83676 Level 3 Est. Patient 13:33:09 CDT Tu Landeros MD [facility] CPT-08155 Level 4 Est. Patient 14:29:21 CDT Tu Landeros MD [facility] CPT-05332 Level 4 Est. Patient 09:08:17 CAN RECONDITIONER Tu Landeros MD [facility] CPT-69155 Level 4 Est. Patient 14:40:19 CDT Tu Landeros MD [facility] CPT-97235 Level 4 Est. Patient 14:06:04 CAN RECONDITIONER Tu Landeros MD [facility] CPT-34370 Level 3 Est. Patient 14:05:18 CAN RECONDITIONER Tu Landeros MD [facility] CPT-40572 Level 3 Est. Patient 10:06:54 CAN RECONDITIONER Miranda Suresh APRN [facility] CPT-35316 Level 4 Est. Patient 13:50:18 CAN RECONDITIONER Tu Landeros MD [facility] CPT-84867 Level 3 Est. Patient 10:30:04 CDT Tu Landeros MD [facility] CPT-73666 Level 4 Est. Patient 11:03:38 CDT Tu Landeros MD [facility] CPT-07859 Level 3 Est. Patient 10:20:44 CDT Fab Morales DO [facility] CPT-84766 Level 4 Est. Patient 14:38:57 CDT Tu Landeros MD [facility] CPT-02354 Level 4 Est. Patient 14:27:39 CAN RECONDITIONER Tu Landeros MD [facility] CPT-43448 Level 4 Est. Patient 09:45:25 CDT Tu Landeros MD [facility] CPT-63848 Level 4 Est. Patient 09:05:20 CAN RECONDITIONER Tu Landeros MD [facility] CPT-16733 Level 4 Est. Patient 14:09:06 CDT Tu Landeros MD [facility] CPT-73145 Level 3 Est. Patient 13:36:54 CDT Tu Landeros MD [facility] CPT-57077 Level 3 Est. Patient 08:59:14 CDT Tu Landeros MD [facility] CPT-19419 Level 3 Est. Patient 13:48:35 CDT Fab Morales DO [facility] CPT-90306 Level 4 Est. Patient 10:05:48 CDT Tu Landeros MD [facility] CPT-24800 Level 3 Est. Patient 13:38:42 CDT Marek BANKS [facility] CPT-92501 Level 5 Est. Patient 08:08:39 CDT Jerrica FRANCIS [facility] CPT-78495 Level 4 Est. Patient 14:23:38 CDT Tu Landeros MD [facility] CPT-38646 Level 3 Est. Patient 11:44:04 CDT Tu Landeros MD [facility] CPT-99632 Level 3 Est. Patient 11:03:20 CAN RECONDITIONER Tu Landeros MD [facility] CPT-19706 Level 3 Est. Patient 11:03:14 CAN RECONDITIONER Tu Landeros MD [facility] CPT-05319 Level 3 Est. Patient 12:42:49 CDT Tu Landeros MD [facility] CPT-62589 Level 3 Est. Patient 11:52:06 CDT Tu Landeros MD [facility] CPT-35688 Level 3 Est. Patient 13:58:11 CDT Tu Landeros MD [facility] CPT-00499 Level 3 Est. Patient 17:50:07 CDT Fab Morales DO [facility] CPT-13369 Level 3 Est. Patient 12:06:29 CDT Elvira Cervantes MD, PhD [facility] CPT-78195 Level 3 Est. Patient 15:50:32 CDT Tu Landeros MD [facility] CPT-20681 Level 4 Est. Patient 16:08:29 CDT Tu Landeros MD [facility] CPT-30452 Level 3 Est. Patient 16:04:19 CDT Tu Landeros MD [facility] CPT-44515 Level 3 Est. Patient 11:22:30 CAN RECONDITIONER Tu Landeros MD [facility] CPT-88096 Level 4 Est. Patient 16:24:02 CAN RECONDITIONER Tu Landeros MD [facility] CPT-25451 Level 3 Est. Patient 17:21:23 CAN RECONDITIONER Tu Landeros MD [facility] Procedures Code Procedure Name Date Entry Date Standard Description CPT-85240 Shoulder, right, comp min 2V - XRAY USE ONLY 13:50:22 CDT CPT-G0009 Administration of Pneumococcal Vaccine 15:08:26 CDT CPT-18809 Prevnar 13 Intramuscular Suspension 15:08:26 CDT 10/08 CPT-G0439 Subsequent Annual Wellness Exam 14:29:22 CDT CPT-62764 Venipuncture Draw Fee 13:15:35 CDT CPT-49716 Magnesium - LAB USE ONLY 11:14:20 CAN RECONDITIONER CPT-49793 Lipid - LAB USE ONLY 11:14:20 CAN RECONDITIONER CPT-19869 HGBA1C - LAB USE ONLY 11:14:20 CAN RECONDITIONER CPT-36947 CMP - LAB USE ONLY 11:14:19 CAN RECONDITIONER CPT-57637 CBC - LAB USE ONLY 11:14:19 CAN RECONDITIONER CPT-77071 Venipuncture Draw Fee 11:14:18 CAN RECONDITIONER CPT-04494 First Vx - Ix admin for Medicare patients 16:46:52 CDT CPT-76889 Fluzone Preservative Free Intramuscular Suspension 16:46 :51 CDT CPT-17971 CBC - LAB USE ONLY 17:14:46 CDT CPT-47954 HGBA1C - LAB USE ONLY 17:14:46 CDT CPT-18806 Venipuncture Draw Fee 17:14:46 CDT CPT-G0438 Initial Annual Wellness Exam 14:13:04 CDT CPT-51217 Breathing Tx 10:06:54 CAN RECONDITIONER CPT-23770 Postop F/U Visit 10:02:45 CDT CPT-LR Lesion Removal 09:02:56 CDT CPT-JTINJ Asp/Joint Injection 15:51:27 CAN RECONDITIONER CPT-OV Office Visit 15:52:02 CAN RECONDITIONER CPT-OV Office Visit 15:45:11 CDT CPT-000 Give Zostavax 14:09:06 CDT CPT-80766 Administration single or combination vaccine inc oral 15 :19:04 CDT CPT-66418 Zoster Vaccine (Zostavax) 15:19:04 CDT CPT-39182 Administration single or combination vaccine inc oral 20 :51:03 CDT CPT-11341 Influenza split virus > age 3 20:51:03 CDT CPT-30522 No Charge Offi Visit 14:52:03 CDT CPT-OV Office Visit 14:57:43 CDT CPT-OV Office Visit 15:22:32 CDT CPT-51008 Administration single or combination vaccine inc oral 11 :33:15 CDT CPT-13988 Influenza split virus > age 3 11:33:15 CDT
--- OUTSIDE RECORDS SUMMARY | 2018-04-25 16:25 | XMS REPORT | Clinical Summary ---
Author Author Admin, SACHI Organization [facility] Address Unknown Phone Unavailable Allergies, Adverse Reactions, [...] MG TABS 1 po BID VENLAFAXINE HCL 37424759470 Active Tu Landeros MD Active GABAPENTIN 100 MG CAPS 1 po BID GABAPENTIN 50282303287 Active José Luis Becerra MD Active REQUIP 2 MG TABS Take one tablet at bedtime prn ROPINIROLE HCL 27952720059 No Longer Active Tu Landeros MD Active VENTOLIN HFA 108 (90 BASE) MCG/ACT AERS 1-2 puffs every 4 hours if needed for cough/congestion ALBUTEROL SULFATE 41035314127 No Longer Active Ambika Aden APRN Active ZITHROMAX 250 MG TAB 2 po today, then 1 po q days 2-5 AZITHROMYCIN 24380687438 No Longer Active Miranda Suresh APRN Active METFORMIN HCL 1000 MG TABS 1 tablet by mouth twice daily METFORMIN HCL 86982175281 Active Tu Landeros MD Active FLONASE 50 MCG/ACT SUSP 1 spray each nostril twice daily until bottle empty FLUTICASONE PROPIONATE 63856578274 No Longer Active Tu Landeros MD Active COLACE 100 MG CAP 1 po BID PRN Constipation DOCUSATE SODIUM 05086395321 Active Tu Landeros MD Active SIMVASTATIN 40 MG TABS 0.5 tab daily at bedtime SIMVASTATIN 45724880794 Active Tu Landeros MD Active TRUERESULT BLOOD GLUCOSE W/DEVICE KIT test blood sugar twice daily dx 250.00 BLOOD GLUCOSE MONITORING SUPPL 52881828145 No Longer Active Tu Landeros MD Active TRUEDRAW LANCING DEVICE MISC Test twice a day dx 250.0 LANCET DEVICES 76138421540 No Longer Active Tu Landeros MD Active PREDNISONE 20 MG TAB 2 tablets once daily for 2 days, then 1 tablet once daily for 2 days PREDNISONE 51645498778 No Longer Active Tu Landeros MD Active DICLOFENAC SODIUM 50 MG TBEC 1 tablet by mouth three times a day as needed DICLOFENAC SODIUM 03447642580 No Longer Active Fab Morales DO Active TRUEDRAW LANCING DEVICE MISC test blood sugar twice daily dx: 250.00 LANCET DEVICES 43796910490 Active Tu Landeros MD Active TRUETEST TEST INVITR STRP test blood sugar twice daily. DX 250.0 GLUCOSE BLOOD 66210563616 Active Tu Landeros MD Active EMBRACE BLOOD GLUCOSE TEST STRP test blood sugar twice daily DX 250.0 2014 GLUCOSE BLOOD 15302076192 No Longer Active Tu Landeros MD Active TRUETEST TEST STRP test blood sugar three times daily dx: 250.00 GLUCOSE BLOOD 75445143734 No Longer Active Suze Corey VOGEL Active TRUERESULT BLOOD GLUCOSE W/DEVICE KIT use to test blood sugar tid dx: 250.00 BLOOD GLUCOSE MONITORING SUPPL 17564623652 No Longer Active Suze Corey RMA Active ALIGN 4 MG CAPS 1 tid PROBIOTIC PRODUCT 28165886002 No Longer Active Shaun Sy MD Active CIPRO 500 MG TABS 1 bid x 14 days start 09-28-13 CIPROFLOXACIN HCL 05829658629 No Longer Active Shaun Sy MD Active TRAMADOL HCL 50 MG TABS 1-2 tablets every 6 hours as needed for pain TRAMADOL HCL 71556968787 Active José Luis Becerra MD Active HYDROCODONE-ACETAMINOPHEN 5-325 MG TABS 1 tab by mouth every 6 hours as needed for pain HYDROCODONE-ACETAMINOPHEN 94053289307 No Longer Active Tu Landeros MD Active OMEPRAZOLE 20 MG CPDR 1 po q a.m. OMEPRAZOLE 25625399443 Active Tu Landeros MD Active GABAPENTIN 100 MG CAPS 1 po bid GABAPENTIN 56628086909 No Longer Active Tu Landeros MD Active B-12 100 MCG TABS Take one by mouth daily CYANOCOBALAMIN 14875977191 No Longer Active Tu Landeros MD Active BACTRIM DS 800-160 MG TABS 1 bid x 14 day start 09-28-13 SULFAMETHOXAZOLE-TRIMETHOPRIM 90850400860 No Longer Active Tu Landeros MD Active CARVEDILOL 12.5 MG TABS 1 po BID CARVEDILOL 36115278615 Active Tu Landeros MD Active SUPER B COMPLEX/VITAMIN C TABS 1 qd B COMPLEX-C 70694094463 Active JASPREET Perez Active TRILIPIX 135 MG CPDR 1 q hs CHOLINE FENOFIBRATE 24660358508 Active Tu Landeros MD Active FENOFIBRATE 145 MG TABS 1 po qd FENOFIBRATE 19924280785 No Longer Active JASPREET Perez Active OMEPRAZOLE 20 MG TBEC 1 PO 30 MIN BEFORE 1ST MEAL OMEPRAZOLE 54316259876 No Longer Active JASPREET Perez Active SIMVASTATIN 40 MG TABS Take one by mouth daily SIMVASTATIN 25980432507 No Longer Active JASPREET Perez Active VENLAFAXINE HCL 75 MG TABS 1 po BID VENLAFAXINE HCL 35505277359 No Longer Active Lenox Norma, RMA Active CIPRO 500 MG TAB 1 tablet by mouth twice daily CIPROFLOXACIN HCL 95629840560 No Longer Active Tu Landeros MD Active VENLAFAXINE HCL 37.5 MG TABS 1 po BID VENLAFAXINE HCL 10385060158 No Longer Active Suze Nicole RMA Active LAMISIL 250 MG TAB 1 po qd TERBINAFINE HCL 14561945090 No Longer Active Tu Landeros MD Active LORTAB 5 5-500 MG TABS 1/2 to 1 tablet by mouth every 4 hours as needed for pain HYDROCODONE-ACETAMINOPHEN 73383428783 No Longer Active Tu Landeros MD Active ENALAPRIL MALEATE 20 MG TABS 1.5 po qd ENALAPRIL MALEATE 75995191244 Active Tu Landeros MD Active HYDROCODONE-ACETAMINOPHEN 5-500 MG TABS take one po Q 4-6 hours prn HYDROCODONE-ACETAMINOPHEN 67891292018 No Longer Active Tu Landeros MD Active BACTRIM DS 800-160 MG TABS 1 po BID x 7 days SULFAMETHOXAZOLE-TRIMETHOPRIM 29742016894 No Longer Active Tu Landeros MD Active VENLAFAXINE HCL 75 MG TABS 1 po BID VENLAFAXINE HCL 15405263538 No Longer Active Elvira Cervantes MD PhD Active TRAMADOL HCL 50 MG TABS 1 tablets every 6 hours as needed for pain TRAMADOL HCL 19311086505 No Longer Active Tu Landeros MD Active ACCU-CHEK FASTCLIX LANCETS MISC Use to check bloodsugar three times daily as needed LANCETS 25904227478 No Longer Active Tu Landeros MD Active ACCU-CHEK KEYONA PLUS STRP Use for testing bloodsugars three times daily as needed GLUCOSE BLOOD 43903114072 No Longer Active Tu Landeros MD Active ACCU-CHEK KEYONA PLUS W/DEVICE KIT Use for testing bloodsugars three times daily as needed BLOOD GLUCOSE MONITORING SUPPL 52310715013 No Longer Active Tu Landeros MD Active SPIRONOLACTONE 25 MG TAB 0.5 tablet by mouth daily SPIRONOLACTONE 82527902107 No Longer Active Tu Landeros MD Active ALPRAZOLAM 0.5 MG TABS 1 tab every 6hrs as needed ALPRAZOLAM 49474003689 No Longer Active Tu Landeros MD Active AUGMENTIN 875-125 MG TAB 1 tab by mouth twice daily with food AMOXICILLIN-POT CLAVULANATE 19315523349 No Longer Active Tu Landeros MD Active PREDNISONE 20 MG TAB 2 tabs daily for 3 days, 1 tab daily for 3 days, 1/2 tab daily for 2 days PREDNISONE 92520401458 No Longer Active Tu Landeros MD Active XANAX 0.5 MG TABS 1 tablet every 6 hrs prn ALPRAZOLAM 52733065127 No Longer Active Tu Landeros MD Active PREDNISONE 20 MG TAB 2 tabs daily for 3 days, 1 tab daily for 3 days, 1/2 tab daily for 2 days PREDNISONE 65247695202 No Longer Active Tu Landeros MD Active TRIAMCINOLONE ACETONIDE 0.1 % OINT Apply to affected areas TID for up to 2 weeks TRIAMCINOLONE ACETONIDE 19229148975 No Longer Active Tu Landeros MD Active LORTAB 5 5-500 MG TABS 1/2 to 1 tablet by mouth every 4 hours as needed for pain HYDROCODONE-ACETAMINOPHEN 41231445346 No Longer Active Tu Landeros MD Active MULTIVITAMINS TABS Take one by mouth daily MULTIPLE VITAMIN 03257949675 No Longer Active Tu Landeros MD Active MELATONIN 5 MG TABS Take one by mouth daily MELATONIN 63377410004 No Longer Active Tu Landeros MD Active SOMA 350 MG TAB 1 po q 6 hours prn spasm CARISOPRODOL 12003281248 No Longer Active Tu Landeros MD Active MECLIZINE HCL 25 MG CHEW TAB 1 four times a day as needed for dizziness 08/05 MECLIZINE HCL 22188257837 No Longer Active Fab Morales DO Active ANGEL BREEZE 2 TEST DISK test tid prn GLUCOSE BLOOD 57978262220 No Longer Active Negra Scott RN Active REGLAN 10 MG TAB 1 po TID PRN Nausea METOCLOPRAMIDE HCL 08614238451 No Longer Active Tu Landeros MD Active METFORMIN HCL 500 MG TABS 1 PO BID METFORMIN HCL 85992383716 No Longer Active Tu Landeros MD Active AMBIEN 10 MG TAB 1 tab by mouth at bedtime as needed for sleep ZOLPIDEM TARTRATE 57069586562 No Longer Active Tu Landeros MD Active FLUOXETINE HCL 40 MG CAPS 1 po q day FLUOXETINE HCL 23241447224 No Longer Active Mayra Concord Active FISH OIL 1000 MG CAPS Take one by mouth daily OMEGA-3 FATTY ACIDS 26643080362 Active Tu Landeros MD Active GLUCOSAMINE 500 MG TABS Take 2 tab po qd GLUCOSAMINE 29649301681 Active Tu Landeros MD Active TRILIPIX 135 MG CPDR 1 po qd CHOLINE FENOFIBRATE 70935088267 No Longer Active Tu Landeros MD Active ASPIRIN 81 MG CHEW TAB 1 tablet by mouth daily ASPIRIN 63869164285 Active Tu Landeros MD Active FUROSEMIDE 40 MG TAB 1 tablet by mouth daily FUROSEMIDE 15381907694 Active Tu Landeros MD Active KLOR-CON 10 10 MEQ CR-TABS TAKE 2 TABS DAILY POTASSIUM CHLORIDE 01202755938 Active Tu Landeros MD Active AMBIEN 10 MG TAB 1 tab by mouth at bedtime as needed for sleep AMBIEN 10 MG TAB 972523 ZOLPIDEM TARTRATE Inactive METFORMIN HCL 500 MG TABS 1 PO BID METFORMIN HCL 500 MG TABS 157434 METFORMIN HCL Inactive REGLAN 10 MG TAB 1 po TID PRN Nausea REGLAN 10 MG TAB 593049 METOCLOPRAMIDE HCL Inactive MECLIZINE HCL 25 MG CHEW TAB 1 four times a day as needed for dizziness 08/05 MECLIZINE HCL 25 MG CHEW TAB 568028 MECLIZINE HCL Inactive SOMA 350 MG TAB 1 po q 6 hours prn spasm SOMA 350 MG TAB 483518 CARISOPRODOL Inactive MELATONIN 5 MG TABS Take one by mouth daily MELATONIN 5 MG TABS 256911 MELATONIN Inactive MULTIVITAMINS TABS Take one by mouth daily MULTIVITAMINS TABS MULTIPLE VITAMIN Inactive LORTAB 5 5-500 MG TABS 1/2 to 1 tablet by mouth every 4 hours as needed for pain LORTAB 5 5-500 MG TABS HYDROCODONE- ACETAMINOPHEN Inactive XANAX 0.5 MG TABS 1 tablet every 6 hrs prn XANAX 0.5 MG TABS 618642 ALPRAZOLAM Inactive AUGMENTIN 875-125 MG TAB 1 tab by mouth twice daily with food AUGMENTIN 875-125 MG TAB 911580 AMOXICILLIN-POT CLAVULANATE Inactive ALPRAZOLAM 0.5 MG TABS 1 tab every 6hrs as needed ALPRAZOLAM 0.5 MG TABS 825279 ALPRAZOLAM Inactive SPIRONOLACTONE 25 MG TAB 0.5 tablet by mouth daily SPIRONOLACTONE 25 MG TAB 886263 SPIRONOLACTONE Inactive ACCU-CHEK KEYONA PLUS W/DEVICE KIT Use for testing bloodsugars three times daily as needed ACCU-CHEK KEYONA PLUS W/DEVICE KIT BLOOD GLUCOSE MONITORING SUPPL Inactive ACCU-CHEK KEYONA PLUS STRP Use for testing bloodsugars three times daily as needed ACCU-CHEK KEYONA PLUS STRP GLUCOSE BLOOD Inactive ACCU-CHEK FASTCLIX LANCETS MISC Use to check bloodsugar three times daily as needed ACCU-CHEK FASTCLIX LANCETS MISC 04285665722 [facility] Inactive TRAMADOL HCL 50 MG TABS 1 tablets every 6 hours as needed for pain TRAMADOL HCL 50 MG TABS 589385 TRAMADOL HCL Inactive VENLAFAXINE HCL 75 MG TABS 1 po BID VENLAFAXINE HCL 75 MG TABS 899789 VENLAFAXINE HCL Inactive HYDROCODONE-ACETAMINOPHEN 5-500 MG TABS take one po Q 4-6 hours prn HYDROCODONE-ACETAMINOPHEN 5-500 MG TABS HYDROCODONE- ACETAMINOPHEN Inactive LORTAB 5 5-500 MG TABS 1/2 to 1 tablet by mouth every 4 hours as needed for pain LORTAB 5 5-500 MG TABS HYDROCODONE- ACETAMINOPHEN Inactive LAMISIL 250 MG TAB 1 po qd LAMISIL 250 MG TAB 453311 TERBINAFINE HCL Inactive VENLAFAXINE HCL 37.5 MG TABS 1 po BID VENLAFAXINE HCL 37.5 MG TABS 072236 VENLAFAXINE HCL Inactive CIPRO 500 MG TAB 1 tablet by mouth twice daily CIPRO 500 MG TAB 375069 CIPROFLOXACIN HCL Inactive VENLAFAXINE HCL 75 MG TABS 1 po BID VENLAFAXINE HCL 75 MG TABS 403623 VENLAFAXINE HCL Inactive SIMVASTATIN 40 MG TABS Take one by mouth daily SIMVASTATIN 40 MG TABS 651034 SIMVASTATIN Inactive OMEPRAZOLE 20 MG TBEC 1 PO 30 MIN BEFORE 1ST MEAL OMEPRAZOLE 20 MG TBEC 644271 OMEPRAZOLE Inactive FENOFIBRATE 145 MG TABS 1 po qd FENOFIBRATE 145 MG TABS 264195 FENOFIBRATE Inactive BACTRIM DS 800-160 MG TABS 1 bid x 14 day start 09-28-13 BACTRIM DS 800-160 MG TABS 606168 SULFAMETHOXAZOLE-TRIMETHOPRIM Inactive B-12 100 MCG TABS Take one by mouth daily B-12 100 MCG TABS CYANOCOBALAMIN Inactive GABAPENTIN 100 MG CAPS 1 po bid GABAPENTIN 100 MG CAPS 716180 GABAPENTIN Inactive HYDROCODONE-ACETAMINOPHEN 5-325 MG TABS 1 tab by mouth every 6 hours as needed for pain HYDROCODONE-ACETAMINOPHEN 5-325 MG TABS 459383 HYDROCODONE-ACETAMINOPHEN Inactive CIPRO 500 MG TABS 1 bid x 14 days start 09-28-13 CIPRO 500 MG TABS 362783 CIPROFLOXACIN HCL Inactive ALIGN 4 MG CAPS [...] as needed DICLOFENAC SODIUM 50 MG TBEC 502527 DICLOFENAC SODIUM Inactive PREDNISONE 20 MG TAB 2 tablets once daily for 2 days, then 1 tablet once daily for 2 days PREDNISONE 20 MG TAB 554724 PREDNISONE Inactive TRUEDRAW LANCING DEVICE MISC Test [...] at bedtime prn REQUIP 2 MG TABS 488945 ROPINIROLE HCL Inactive TRIAMCINOLONE ACETONIDE 0.1 % OINT Apply to affected areas TID for up to 2 weeks TRIAMCINOLONE ACETONIDE 0.1 % OINT 8475697 TRIAMCINOLONE ACETONIDE Inactive PREDNISONE 20 MG TAB 2 tabs daily for 3 days, 1 tab daily for 3 days, 1/2 tab daily for 2 days PREDNISONE 20 MG TAB 290982 PREDNISONE Inactive PREDNISONE 20 MG TAB 2 tabs daily for 3 days, 1 tab daily for 3 days, 1/2 tab daily for 2 days PREDNISONE 20 MG TAB 462411 PREDNISONE Inactive BACTRIM DS 800-160 MG TABS 1 po BID x 7 days BACTRIM DS 800-160 MG TABS 301215 SULFAMETHOXAZOLE-TRIMETHOPRIM Inactive ZITHROMAX 250 MG TAB 2 po today, then 1 po q days 2-5 ZITHROMAX 250 MG TAB 8797327 AZITHROMYCIN Inactive Advance Directives Directive Description Start Date DISCUSSED WITH PATIENT -- NO DECISION MADE Immunizations Vaccine Administration Date Value Standard Description Seasonal influenza vaccine, injectable, containing preservative, for > 3 years old (Afluria, FluLaval, Fluzone, Fluvirin, Fluarix, Agriflu(>=18 yo)) Fluzone (>3 yrs.) [[id number]] Influenza, seasonal, injectable influenza immunization (Flu Vax) has been administered 02/22/2012 influenza virus vaccine, unspecified formulation Seasonal influenza vaccine, injectable, containing preservative, for > 3 years old (Afluria, FluLaval, Fluzone, Fluvirin, Fluarix, Agriflu(>=18 yo)) Fluzone (>3 yrs.) [[id number]] Influenza, seasonal, injectable Vital Signs Date Name [...] 7.4 % 4.3-6.0 sodium, serum 140 mmol/L 200-167 5006/09/07 potassium, serum 4.3 mmol/L 3.5-5.2 chloride, serum 104 mmol/L 98-107 carbon dioxide, venous blood 27.7 mmol/L 21.0-32.0 blood glucose 156 mg/dL 65-110 calcium, serum 9.3 mg/dL 8.5-10.1 urea nitrogen, blood 23 mg/dL 7-18 creatinine, serum 1.21 mg/dL 0.55-1.30 Lab Report: Lipid Panel, Comp. Metabolic Panel - Chemistry cholesterol, serum 124 mg/dL 156-270 8790/01/12 triglyceride, serum, fasting 135 mg/dL 30-200 HDL cholesterol, serum 41 mg/dL 32-96 LDL cholesterol, serum 56 mg/dL 0-130 sodium, serum 140 mmol/L 822-250 9881/01/12 carbon dioxide, venous blood 27.7 mmol/L 21.0-32.0 potassium, serum 4.5 mmol/L 3.5-5.2 chloride, serum 104 mmol/L 98-107 blood glucose 139 mg/dL 65-110 urea nitrogen, blood 16 mg/dL 7-18 alanine aminotransferase (SGPT), serum 32 U/L 12-78 aspartate aminotransferase (SGOT), serum 25 U/L 15-37 calcium, serum 9.1 mg/dL 8.5-10.1 bilirubin, serum, total 0.50 mg/dL 0.00-1.00 Encounters Code Encounter Date Provider Facility CPT-67765 Level 4 Est. Patient 14:40:19 CDT Tu Landeros MD [facility] CPT-77271 Level 4 Est. Patient 14:06:04 GASKET MAKER Tu Landeros MD [facility] CPT-92317 Level 3 Est. Patient 14:05:18 GASKET MAKER Tu Landeros MD [facility] CPT-01131 Level 3 Est. Patient 10:06:54 GASKET MAKER Miranda Suresh APRN [facility] CPT-15641 Level 4 Est. Patient 13:50:18 GASKET MAKER [facility] CPT-57334 Level 3 Est. Patient 10:30:04 CDT Tu Landeros MD [facility] CPT-97930 Level 4 Est. Patient 11:03:38 CDT Tu Landeros MD [facility] CPT-69675 Level 3 Est. Patient 10:20:44 CDT Fab Morales DO [facility] CPT-76844 Level 4 Est. Patient 14:38:57 CDT Tu Landeros MD [facility] CPT-85489 Level 4 Est. Patient 14:27:39 GASKET MAKER Tu Landeros MD [facility] CPT-38828 Level 4 Est. Patient 09:45:25 CDT Tu Landeros MD [facility] CPT-22353 Level 4 Est. Patient 09:05:20 GASKET MAKER Tu Landeros MD [facility] CPT-67434 Level 4 Est. Patient 14:09:06 CDT Tu Landeros MD [facility] CPT-11179 Level 3 Est. Patient 13:36:54 CDT Tu Landeros MD [facility] CPT-44106 Level 3 Est. Patient 08:59:14 CDT Tu Landeros MD [facility] CPT-62472 Level 3 Est. Patient 13:48:35 CDT Fab Morales DO [facility] CPT-77525 Level 4 Est. Patient 10:05:48 CDT Tu Landeros MD [facility] CPT-96844 Level 3 Est. Patient 13:38:42 CDT Marek BANKS [facility] CPT-30390 Level 5 Est. Patient 08:08:39 CDT Jerrica FRANCIS [facility] CPT-00398 Level 4 Est. Patient 14:23:38 CDT Tu Landeros MD [facility] CPT-02284 Level 3 Est. Patient 11:44:04 CDT Tu Landeros MD [facility] CPT-95474 Level 3 Est. Patient 11:03:20 GASKET MAKER Tu Landeros MD [facility] CPT-67098 Level 3 Est. Patient 11:03:14 GASKET MAKER Tu Landeros MD [facility] CPT-10569 Level 3 Est. Patient 12:42:49 CDT Tu Landeros MD [facility] CPT-86239 Level 3 Est. Patient 11:52:06 CDT Tu Landeros MD [facility] CPT-49573 Level 3 Est. Patient 13:58:11 CDT Tu Landeros MD [facility] CPT-06249 Level 3 Est. Patient 17:50:07 CDT Fab Morales DO [facility] CPT-25962 Level 3 Est. Patient 12:06:29 CDT Elvira Cervantes MD PhD [facility] CPT-76717 Level 3 Est. Patient 15:50:32 CDT Tu Landeros MD [facility] CPT-17370 Level 4 Est. Patient 16:08:29 CDT Tu Landeros MD [facility] CPT-59614 Level 3 Est. Patient 16:04:19 CDT Tu Landeros MD [facility] CPT-96368 Level 3 Est. Patient 11:22:30 GASKET MAKER Tu Landeros MD [facility] CPT-55036 Level 4 Est. Patient 16:24:02 GASKET MAKER Tu Landeros MD [facility] CPT-04102 Level 3 Est. Patient 17:21:23 GASKET MAKER Tu Landeros MD [facility] Procedures Code Procedure Name Date Entry Date Standard Description CPT-98634 First Vx - Ix admin for Medicare patients 16:46:52 CDT CPT-85933 Fluzone Preservative Free Intramuscular Suspension 16:46 :51 CDT CPT-89777 CBC - LAB USE ONLY 17:14:46 CDT CPT-66781 HGBA1C - LAB USE ONLY 17:14:46 CDT CPT-66532 Venipuncture Draw Fee 17:14:46 CDT CPT-G0438 Initial Annual Wellness Exam 14:13:04 CDT CPT-22299 Breathing Tx 10:06:54 GASKET MAKER CPT-40246 Postop F/U Visit 10:02:45 CDT CPT-LR Lesion Removal 09:02:56 CDT CPT-JTINJ Asp/Joint Injection 15:51:27 GASKET MAKER CPT-OV Office Visit 15:52:02 GASKET MAKER CPT-OV Office Visit 15:45:11 CDT CPT-000 Give Zostavax 14:09:06 CDT CPT-23574 Administration single or combination vaccine inc oral 15 :19:04 CDT CPT-12941 Zoster Vaccine (Zostavax) 15:19:04 CDT CPT-86450 Administration single or combination vaccine inc oral 20 :51:03 CDT CPT-77809 Influenza split virus > age 3 20:51:03 CDT CPT-01575 No Charge Offi Visit 14:52:03 CDT CPT-OV Office Visit 14:57:43 CDT CPT-OV Office Visit 15:22:32 CDT CPT-15918 Administration single or combination vaccine inc oral 11 :33:15 CDT CPT-95092 Influenza split virus > age 3 11:33:15 CDT
--- OUTSIDE RECORDS SUMMARY | 2018-04-25 16:26 | XMS REPORT | Clinical Summary ---
Author Author Admin, SACHI Organization [employer] Address Unknown Phone Unavailable Allergies, Adverse Reactions, [...] (pediatric) Obstructive sleep apnea 327.23 Active Tu Landeors MD Obstructive sleep apnea (adult) (pediatric) INSOMNIA, [...] parts of trunk, complicated 879.7 Resolved Tu Ladneros MD Open wound of other and unspecified [...] Landeros MD FREQUENCY, URINARY ICD-788.41 Inactive Elvira Crevantes MD PhD FEVER UNSPECIFIED ICD-780.60 Inactive Tu Landeros MD MUSCLE SPASM ICD-728.85 Inactive Tu Landeros MD BENIGN PAROXYSMAL POSITIONAL VERTIGO ICD-386.11 Inactive Tu Landeros MD PARESTHESIA ICD-782.0 Inactive Tu Landeros MD RASH AND OTHER NONSPECIFIC SKIN ERUPTION ICD-782.1 Inactive Tu Landeros MD SCIATICA ICD-724.3 Tessa Landeros MD 2012 SHOULDER PAIN, LEFT ICD-719.41 Inactive Tu Landeros MD FATIGUE ICD-780.79 Inactive Tu Landeros MD 2012 KNEE PAIN ICD-719.46 Inactive Tu Landeros MD ARTHRITIS ICD-716.90 Inactive Tu Landeros MD CARPAL TUNNEL SYNDROME ICD-354.0 Inactive Tu Landeros MD LOCALIZED SUPERFICIAL SWELLING MASS OR LUMP ICD-782.2 Inactive Tu Landeros MD CONTUSION OF UNSPECIFIED SITE ICD-924.9 Inactive Tu Landeros MD PRESSURE ULCER UNSPECIFIED SITE ICD-707.00 Inactive uT Landeros MD Open wound of abdominal wall, anterior, complicated ICD-879.3 Tessa Landeros MD Upper respiratory infection, viral ICD-465.9 Tessa Sy MD Open wound of other and unspecified parts of trunk, complicated ICD-879.7 Inactive Tu Landeros MD Knee pain, left, acute ICD-719.46 Tessa Landeros MD Ear pain, bilateral ICD-388.70 Tessa Landeros MD ONYCHOMYCOSIS ICD-110.1 Inactive Tu Landeros MD Osteoarthritis ICD-715.90 Tessa Landeros MD Upper respiratory infection, viral ICD-465.9 Tessa Landeros MD Sinusitis - acute ICD-461.9 Tessa Landeros MD Leg pain, left ICD-729.5 Tessa Landeros MD Hot flashes ICD-627.2 Tessa Landeros MD Sebaceous cyst ICD-706.2 Tessa Landeros MD Shoulder pain, right ICD-719.41 Tessa Landeros MD Vision impairment, both eyes, impairment level not further specified ICD- 369.20 Tessa Landeros MD Pain in unspecified foot ICD-729.5 Tessa Landeros MD Medication List Medication Instructions Start Date Stop Date Generic Name NDC Status Provider Patient Instruction GABAPENTIN 100 MG CAPS 1 po TID GABAPENTIN 38994230340 Active Tu Landeros MD Active DICLOFENAC SODIUM 50 MG ORAL TBEC 1 po BID PRN Pain DICLOFENAC SODIUM 42392903816 No Longer Active Tu Landeros MD Active CYCLOBENZAPRINE HCL 10 MG ORAL TABS 1 po TID PRN Muscle Spasm CYCLOBENZAPRINE HCL 89586178585 No Longer Active Tu Landeros MD Active INVOKANA 100 MG ORAL TABS 1 po qd CANAGLIFLOZIN 85121354604 Active Tu Landeros MD Active GLIPIZIDE 5 MG ORAL TABS 1 po qd GLIPIZIDE 46209072062 No Longer Active Tu Landeros MD Active VENLAFAXINE HCL 75 MG ORAL TABS 1 po BID VENLAFAXINE HCL 51870900561 Active Tu Landeros MD Active GLIMEPIRIDE 1 MG ORAL TABS 1 po qd GLIMEPIRIDE 52101802827 No Longer Active Tu Landeros MD Active TRUE METRIX BLOOD GLUCOSE TEST INVITR STRP Test blood sugar BID Dx: E11.9 GLUCOSE BLOOD 76665523012 Active Tu Landeros MD Active TRUE METRIX AIR GLUCOSE METER W/DEVICE KIT Test blood glucose BID Dx: E11.9 BLOOD GLUCOSE MONITORING SUPPL 65446792646 Active Tu Landeros MD Active TRUETEST TEST INVITR STRP test blood sugar twice daily. DX 250.0 GLUCOSE BLOOD 84452600781 No Longer Active Mirna Stanley LPN Active TRUEDRAW LANCING DEVICE MISC test blood sugar twice daily dx: 250.00 LANCET DEVICES 78075368999 No Longer Active Mirna Stanley LPN Active ENALAPRIL MALEATE 20 MG TABS 2 po qd ENALAPRIL MALEATE 27782720154 Active Lesli Kellogg APRN Active SUPER B COMPLEX/VITAMIN C TABS 1 qd B COMPLEX-C 70281521528 No Longer Active Tu Landeros MD Active ASPIRIN EC 81 MG ORAL TBEC 1 po qd ASPIRIN 07675277865 Active Tu Landeros MD Active GLUCOSAMINE 500 MG TABS 2 po qd GLUCOSAMINE Active Tu Landeros MD Active SIMVASTATIN 40 MG TABS 0.5 po qHS SIMVASTATIN 00925780544 Active Tu Landeros MD Active FISH OIL 1000 MG CAPS 1 po qd OMEGA-3 FATTY ACIDS 17022527869 Active Tu Landeros MD Active METFORMIN HCL 1000 MG TABS 1 po BID METFORMIN HCL 26324293893 Active Tu Landeros MD Active KLOR-CON 10 10 MEQ CR-TABS 2 po qd POTASSIUM CHLORIDE 87963932214 Active Tu Landeros MD Active FUROSEMIDE 40 MG TAB 1 po qd FUROSEMIDE 31388817349 Active Tu Landeros MD Active REQUIP 2 MG ORAL TABS 1 po qHS PRN Restless legs ROPINIROLE HCL 73916986950 Active Tu Landeros MD Active REQUIP 2 MG TABS Take one tablet at bedtime prn ROPINIROLE HCL 44570729264 No Longer Active Tu Landeros MD Active VENTOLIN HFA 108 (90 BASE) MCG/ACT AERS 1-2 puffs every 4 hours if needed for cough/congestion ALBUTEROL SULFATE 17102833149 No Longer Active Ambika Aden APRN Active ZITHROMAX 250 MG TAB 2 po today, then 1 po q days 2-5 AZITHROMYCIN 35590856211 No Longer Active Miranda Suresh APRN Active FLONASE 50 MCG/ACT SUSP 1 spray each nostril twice daily until bottle empty FLUTICASONE PROPIONATE 38307777527 No Longer Active Tu Landeros MD Active COLACE 100 MG CAP 1 po BID PRN Constipation DOCUSATE SODIUM 51145722650 Active Tu Landeros MD Active TRUERESULT BLOOD GLUCOSE W/DEVICE KIT test blood sugar twice daily dx 250.00 BLOOD GLUCOSE MONITORING SUPPL 13699896042 No Longer Active Tu Landeros MD Active TRUEDRAW LANCING DEVICE MISC Test twice a day dx 250.0 LANCET DEVICES 28555803484 No Longer Active Tu Landeros MD Active PREDNISONE 20 MG TAB 2 tablets once daily for 2 days, then 1 tablet once daily for 2 days PREDNISONE 48156531303 No Longer Active Tu Landeros MD Active DICLOFENAC SODIUM 50 MG TBEC 1 tablet by mouth three times a day as needed DICLOFENAC SODIUM 64156662191 No Longer Active Fab Morales DO Active EMBRACE BLOOD GLUCOSE TEST STRP test blood sugar twice daily DX 250.0 2014 GLUCOSE BLOOD 71973058915 No Longer Active Tu Landeros MD Active TRUETEST TEST STRP test blood sugar three times daily dx: 250.00 GLUCOSE BLOOD 25035439885 No Longer Active Suze Corey RMA Active TRUERESULT BLOOD GLUCOSE W/DEVICE KIT use to test blood sugar tid dx: 250.00 BLOOD GLUCOSE MONITORING SUPPL 67894024544 No Longer Active Suze Corey RMA Active ALIGN 4 MG CAPS 1 tid PROBIOTIC PRODUCT 96397256591 No Longer Active Shaun Sy MD Active CIPRO 500 MG TABS 1 bid x 14 days start 09-28-13 CIPROFLOXACIN HCL 61710186790 No Longer Active Shaun Sy MD Active TRAMADOL HCL 50 MG TABS 1-2 tablets every 6 hours as needed for pain TRAMADOL HCL 06463901671 Active Tu Landeros MD Active HYDROCODONE-ACETAMINOPHEN 5-325 MG TABS 1 tab by mouth every 6 hours as needed for pain HYDROCODONE-ACETAMINOPHEN 95578777684 No Longer Active Tu Landeros MD Active OMEPRAZOLE 20 MG CPDR 1 po q a.m. OMEPRAZOLE 29404772071 Active Fab Morales DO Active GABAPENTIN 100 MG CAPS 1 po bid GABAPENTIN 66184889161 No Longer Active Tu Landeros MD Active B-12 100 MCG TABS Take one by mouth daily CYANOCOBALAMIN 75031625332 No Longer Active Tu Landeros MD Active BACTRIM DS 800-160 MG TABS 1 bid x 14 day start 09-28-13 SULFAMETHOXAZOLE-TRIMETHOPRIM 46176203118 No Longer Active Tu Landeros MD Active CARVEDILOL 12.5 MG TABS 1 po BID CARVEDILOL 53071781043 Active Lesli Kellogg APRN Active TRILIPIX 135 MG CPDR 1 q hs CHOLINE FENOFIBRATE 74667581187 Active Tu Landeros MD Active FENOFIBRATE 145 MG TABS 1 po qd FENOFIBRATE 60586797328 No Longer Active JASPREET Perez Active OMEPRAZOLE 20 MG TBEC 1 PO 30 MIN BEFORE 1ST MEAL OMEPRAZOLE 94059456481 No Longer Active JASPREET Perez Active SIMVASTATIN 40 MG TABS Take one by mouth daily SIMVASTATIN 34995635633 No Longer Active JASPREET Perez Active VENLAFAXINE HCL 75 MG TABS 1 po BID VENLAFAXINE HCL 44587294810 No Longer Active JASPREET Perez Active CIPRO 500 MG TAB 1 tablet by mouth twice daily CIPROFLOXACIN HCL 94515152543 No Longer Active Tu Landeros MD Active VENLAFAXINE HCL 37.5 MG TABS 1 po BID VENLAFAXINE HCL 32233612975 No Longer Active Suzecandido Nicole RMA Active LAMISIL 250 MG TAB 1 po qd TERBINAFINE HCL 23029919432 No Longer Active Tu Landeros MD Active LORTAB 5 5-500 MG TABS 1/2 to 1 tablet by mouth every 4 hours as needed for pain HYDROCODONE-ACETAMINOPHEN 50236602270 No Longer Active Tu Landeros MD Active HYDROCODONE-ACETAMINOPHEN 5-500 MG TABS take one po Q 4-6 hours prn HYDROCODONE-ACETAMINOPHEN 68840206311 No Longer Active Tu Landeros MD Active BACTRIM DS 800-160 MG TABS 1 po BID x 7 days SULFAMETHOXAZOLE-TRIMETHOPRIM 24537901050 No Longer Active Tu Landeros MD Active VENLAFAXINE HCL 75 MG TABS 1 po BID VENLAFAXINE HCL 22391732765 No Longer Active Elvira Cervantes MD PhD Active TRAMADOL HCL 50 MG TABS 1 tablets every 6 hours as needed for pain TRAMADOL HCL 60769038340 No Longer Active Tu Landeros MD Active ACCU-CHEK FASTCLIX LANCETS MISC Use to check bloodsugar three times daily as needed LANCETS 56590727949 No Longer Active Tu Landeros MD Active ACCU-CHEK KEYONA PLUS STRP Use for testing bloodsugars three times daily as needed GLUCOSE BLOOD 18966399496 No Longer Active Tu Landeros MD Active ACCU-CHEK KEYONA PLUS W/DEVICE KIT Use for testing bloodsugars three times daily as needed BLOOD GLUCOSE MONITORING SUPPL 14189336995 No Longer Active Tu Landeros MD Active SPIRONOLACTONE 25 MG TAB 0.5 tablet by mouth daily SPIRONOLACTONE 74099381006 No Longer Active Tu Landeros MD Active ALPRAZOLAM 0.5 MG TABS 1 tab every 6hrs as needed ALPRAZOLAM 63387466446 No Longer Active Tu Landeros MD Active AUGMENTIN 875-125 MG TAB 1 tab by mouth twice daily with food AMOXICILLIN-POT CLAVULANATE 81393581790 No Longer Active Tu Landeros MD Active PREDNISONE 20 MG TAB 2 tabs daily for 3 days, 1 tab daily for 3 days, 1/2 tab daily for 2 days PREDNISONE 87899889423 No Longer Active Tu Landeros MD Active XANAX 0.5 MG TABS 1 tablet every 6 hrs prn ALPRAZOLAM 35354577361 No Longer Active Tu Landeros MD Active PREDNISONE 20 MG TAB 2 tabs daily for 3 days, 1 tab daily for 3 days, 1/2 tab daily for 2 days PREDNISONE 70792681295 No Longer Active Tu Landeros MD Active TRIAMCINOLONE ACETONIDE 0.1 % OINT Apply to affected areas TID for up to 2 weeks TRIAMCINOLONE ACETONIDE 45772170897 No Longer Active Tu Landeros MD Active LORTAB 5 5-500 MG TABS 1/2 to 1 tablet by mouth every 4 hours as needed for pain HYDROCODONE-ACETAMINOPHEN 45357461629 No Longer Active Tu Landeros MD Active MULTIVITAMINS TABS Take one by mouth daily MULTIPLE VITAMIN 51682355581 No Longer Active Tu Landeros MD Active MELATONIN 5 MG TABS Take one by mouth daily MELATONIN 36568550968 No Longer Active Tu Landeros MD Active SOMA 350 MG TAB 1 po q 6 hours prn spasm CARISOPRODOL 44516307582 No Longer Active Tu Landeros MD Active MECLIZINE HCL 25 MG CHEW TAB 1 four times a day as needed for dizziness 08/05 MECLIZINE HCL 14701099940 No Longer Active Fab Morales DO Active ANGEL BREEZE 2 TEST DISK test tid prn GLUCOSE BLOOD 82854102290 No Longer Active Negra Scott RN Active REGLAN 10 MG TAB 1 po TID PRN Nausea METOCLOPRAMIDE HCL 48749761372 No Longer Active Tu Landeros MD Active METFORMIN HCL 500 MG TABS 1 PO BID METFORMIN HCL 40416370346 No Longer Active Tu Landeros MD Active AMBIEN 10 MG TAB 1 tab by mouth at bedtime as needed for sleep ZOLPIDEM TARTRATE 79877106063 No Longer Active Tu Landeros MD Active FLUOXETINE HCL 40 MG CAPS 1 po q day FLUOXETINE HCL 15213157343 No Longer Active Mayra Chappell Active TRILIPIX 135 MG CPDR 1 po qd CHOLINE FENOFIBRATE 54373627242 No Longer Active Tu Landeros MD Active AMBIEN 10 MG TAB 1 tab by mouth at bedtime as needed for sleep AMBIEN 10 MG TAB 571969 ZOLPIDEM TARTRATE Inactive METFORMIN HCL 500 MG TABS 1 PO BID METFORMIN HCL 500 MG TABS 416178 METFORMIN HCL Inactive REGLAN 10 MG TAB 1 po TID PRN Nausea REGLAN 10 MG TAB 110260 METOCLOPRAMIDE HCL Inactive MECLIZINE HCL 25 MG CHEW TAB 1 four times a day as needed for dizziness 08/05 MECLIZINE HCL 25 MG CHEW TAB 770874 MECLIZINE HCL Inactive SOMA 350 MG TAB 1 po q 6 hours prn spasm SOMA 350 MG TAB 547921 CARISOPRODOL Inactive MELATONIN 5 MG TABS Take one by mouth daily MELATONIN 5 MG TABS 368791 MELATONIN Inactive MULTIVITAMINS TABS Take one by mouth daily MULTIVITAMINS TABS MULTIPLE VITAMIN Inactive LORTAB 5 5-500 MG TABS 1/2 to 1 tablet by mouth every 4 hours as needed for pain LORTAB 5 5-500 MG TABS 570024 HYDROCODONE- ACETAMINOPHEN Inactive XANAX 0.5 MG TABS 1 tablet every 6 hrs prn XANAX 0.5 MG TABS 230701 ALPRAZOLAM Inactive AUGMENTIN 875-125 MG TAB 1 tab by mouth twice daily with food AUGMENTIN 875-125 MG TAB 974190 AMOXICILLIN-POT CLAVULANATE Inactive ALPRAZOLAM 0.5 MG TABS 1 tab every 6hrs as needed ALPRAZOLAM 0.5 MG TABS 627919 ALPRAZOLAM Inactive SPIRONOLACTONE 25 MG TAB 0.5 tablet by mouth daily SPIRONOLACTONE 25 MG TAB 039842 SPIRONOLACTONE Inactive ACCU-CHEK KEYONA PLUS W/DEVICE KIT Use for testing bloodsugars three times daily as needed ACCU-CHEK KEYONA PLUS W/DEVICE KIT BLOOD GLUCOSE MONITORING SUPPL Inactive ACCU-CHEK KEYONA PLUS STRP Use for testing bloodsugars three times daily as needed ACCU-CHEK KEYONA PLUS STRP GLUCOSE BLOOD Inactive ACCU-CHEK FASTCLIX LANCETS MISC Use to check bloodsugar three times daily as needed ACCU-CHEK FASTCLIX LANCETS MISC 45922796624 LANCETS Inactive TRAMADOL HCL 50 MG TABS 1 tablets every 6 hours as needed for pain TRAMADOL HCL 50 MG TABS 999198 TRAMADOL HCL Inactive VENLAFAXINE HCL 75 MG TABS 1 po BID VENLAFAXINE HCL 75 MG TABS 020994 VENLAFAXINE HCL Inactive HYDROCODONE-ACETAMINOPHEN 5-500 MG TABS take one po Q 4-6 hours prn HYDROCODONE-ACETAMINOPHEN 5-500 MG TABS 101176 HYDROCODONE- ACETAMINOPHEN Inactive LORTAB 5 5-500 MG TABS 1/2 to 1 tablet by mouth every 4 hours as needed for pain LORTAB 5 5-500 MG TABS 923249 HYDROCODONE- ACETAMINOPHEN Inactive LAMISIL 250 MG TAB 1 po qd LAMISIL 250 MG TAB 854452 TERBINAFINE HCL Inactive VENLAFAXINE HCL 37.5 MG TABS 1 po BID VENLAFAXINE HCL 37.5 MG TABS 977893 VENLAFAXINE HCL Inactive CIPRO 500 MG TAB 1 tablet by mouth twice daily CIPRO 500 MG TAB 491155 CIPROFLOXACIN HCL Inactive VENLAFAXINE HCL 75 MG TABS 1 po BID VENLAFAXINE HCL 75 MG TABS 062771 VENLAFAXINE HCL Inactive SIMVASTATIN 40 MG TABS Take one by mouth daily SIMVASTATIN 40 MG TABS 747125 SIMVASTATIN Inactive OMEPRAZOLE 20 MG TBEC 1 PO 30 MIN BEFORE 1ST MEAL OMEPRAZOLE 20 MG TBEC 249738 OMEPRAZOLE Inactive FENOFIBRATE 145 MG TABS 1 po qd FENOFIBRATE 145 MG TABS 243842 FENOFIBRATE Inactive BACTRIM DS 800-160 MG TABS 1 bid x 14 day start 09-28-13 BACTRIM DS 800-160 MG TABS 319365 SULFAMETHOXAZOLE-TRIMETHOPRIM Inactive B-12 100 MCG TABS Take one by mouth daily B-12 100 MCG TABS CYANOCOBALAMIN Inactive GABAPENTIN 100 MG CAPS 1 po bid GABAPENTIN 100 MG CAPS 517681 GABAPENTIN Inactive HYDROCODONE-ACETAMINOPHEN 5-325 MG TABS 1 tab by mouth every 6 hours as needed for pain HYDROCODONE-ACETAMINOPHEN 5-325 MG TABS 002693 HYDROCODONE-ACETAMINOPHEN Inactive CIPRO 500 MG TABS 1 bid x 14 days start 09-28-13 CIPRO 500 MG TABS 835599 CIPROFLOXACIN HCL Inactive ALIGN 4 MG CAPS [...] as needed DICLOFENAC SODIUM 50 MG TBEC 907958 DICLOFENAC SODIUM Inactive PREDNISONE 20 MG TAB 2 tablets once daily for 2 days, then 1 tablet once daily for 2 days PREDNISONE 20 MG TAB 814840 PREDNISONE Inactive TRUEDRAW LANCING DEVICE MISC Test twice a day dx 250.0 TRUEDRAW LANCING DEVICE MISC LANCET DEVICES Inactive TRUERESULT BLOOD GLUCOSE W/DEVICE KIT test blood sugar twice daily dx 250.00 TRUERESULT BLOOD GLUCOSE W/DEVICE KIT BLOOD GLUCOSE MONITORING SUPPL Inactive FLONASE 50 MCG/ACT SUSP 1 spray each nostril twice daily until bottle empty FLONASE 50 MCG/ACT SUSP 6389991 FLUTICASONE PROPIONATE Inactive VENTOLIN HFA 108 (90 BASE) MCG/ACT AERS 1-2 puffs every 4 hours if needed for cough/congestion VENTOLIN HFA 108 (90 BASE) MCG/ACT AERS ALBUTEROL SULFATE Inactive REQUIP 2 MG TABS Take one tablet at bedtime prn REQUIP 2 MG TABS 058174 ROPINIROLE HCL Inactive SUPER B COMPLEX/VITAMIN C TABS 1 qd SUPER B COMPLEX/ VITAMIN C TABS 78980296856 B COMPLEX-C Inactive TRUEDRAW LANCING DEVICE MISC test blood sugar twice daily dx: 250.00 TRUEDRAW LANCING DEVICE MISC LANCET DEVICES Inactive TRUETEST TEST INVITR STRP test blood sugar twice daily. DX 250.0 TRUETEST TEST INVITR STRP GLUCOSE BLOOD Inactive CYCLOBENZAPRINE HCL 10 MG ORAL TABS 1 po TID PRN Muscle Spasm CYCLOBENZAPRINE HCL 10 MG ORAL TABS 104440 CYCLOBENZAPRINE HCL Inactive DICLOFENAC SODIUM 50 MG ORAL TBEC 1 po BID PRN Pain DICLOFENAC SODIUM 50 MG ORAL TBEC 333772 DICLOFENAC SODIUM Inactive TRIAMCINOLONE ACETONIDE 0.1 % OINT Apply to affected areas TID for up to 2 weeks TRIAMCINOLONE ACETONIDE 0.1 % OINT 6468888 TRIAMCINOLONE ACETONIDE Inactive PREDNISONE 20 MG TAB 2 tabs daily for 3 days, 1 tab daily for 3 days, 1/2 tab daily for 2 days PREDNISONE 20 MG TAB 721648 PREDNISONE Inactive PREDNISONE 20 MG TAB 2 tabs daily for 3 days, 1 tab daily for 3 days, 1/2 tab daily for 2 days PREDNISONE 20 MG TAB 476416 PREDNISONE Inactive BACTRIM DS 800-160 MG TABS 1 po BID x 7 days BACTRIM DS 800-160 MG TABS 497813 SULFAMETHOXAZOLE-TRIMETHOPRIM Inactive ZITHROMAX 250 MG TAB 2 po today, then 1 po q days 2-5 ZITHROMAX 250 MG TAB 947780 AZITHROMYCIN Inactive Advance Directives Directive Description Start Date DISCUSSED WITH PATIENT -- NO DECISION MADE Immunizations Vaccine Administration Date Value Standard Description Seasonal influenza vaccine, injectable, containing preservative, for > 3 years old (Afluria, FluLaval, Fluzone, Fluvirin, Fluarix, Agriflu(>=18 yo)) Fluzone (>3 yrs.) [WSL043] Influenza, seasonal, injectable influenza immunization (Flu Vax) has been administered 02/22/2012 influenza virus vaccine, unspecified formulation Seasonal influenza vaccine, injectable, containing preservative, for > 3 years old (Afluria, FluLaval, Fluzone, Fluvirin, Fluarix, Agriflu(>=18 yo)) Fluzone (>3 yrs.) [OEC281] Influenza, seasonal, injectable Vital Signs Date Name [...] fL 80-97 hematocrit, blood 41.2 % 36.0-46.0 hemoglobin, blood 13.7 g/dL 12.0-16.0 erythrocyte (RBC) count 4.58 10^6/MM^3 10*6/mm3 4.04-5.48 leukocyte count, blood 10.8 10^3/MM^3 10*3/mm3 4.6-10.2 mean corpuscular hemoglobin, RBC 29.9 pg 27.0-31.2 mean corpuscular hemoglobin concentration, RBC 33.3 G/DL % 31.8- 35.4 red blood cell distribution width 13.6 % 11.6-14.8 platelet count 279 10^3/MM^3 10*3/mm3 142-424 Lab Report: Comp. Metabolic Panel, Lipid Panel, Magnesium - Chemistry sodium, serum 143 mmol/L 105-765 5343/01/10 creatinine, serum 1.06 mg/dL 0.55-1.30 alanine aminotransferase (SGPT), serum 42 U/L 12-78 aspartate aminotransferase (SGOT), serum 32 U/L 15-37 calcium, serum 9.3 mg/dL 8.5-10.1 bilirubin, serum, total 0.20 mg/dL 0.00-1.00 cholesterol, serum 177 mg/dL 217-273 9253/01/10 triglyceride, serum, fasting 320 mg/dL 30-200 HDL [...] cholesterol/HDL ratio, serum 3.3 (calc) < OR=5.0 cholesterol, serum 135 mg/dL 609-202 6481/05/17 HDL cholesterol, serum 41 mg/dL > OR=46 triglyceride, serum, fasting 206 mg/dL <150 LDL cholesterol, serum 53 MG/DL (CALC) mg/dL <130 Lab Report: HGBA1C - Chemistry hemoglobin A1C, blood, as % of total hemoglobin 6.5 % 4.3-6.0 Lab Report: MicroAlb Random w/creat/6517 - Urinalysis microalbumin/total urine volume 21 mg/L Units converted. See lab report for original value. microalbumin/creatinine ratio, urine 11 MCG/MG CREAT mg/L <30 Encounters Code Encounter Date Provider Facility CPT-07226 Level 4 Est. Patient 14:28:34 CDT Tu Landeros MD [facility] CPT-40868 Level 3 Est. Patient 13:33:09 CDT Tu Landeros MD [facility] CPT-08713 Level 4 Est. Patient 14:29:21 CDT Tu Landeros MD [facility] CPT-29423 Level 4 Est. 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 Patient 14:40:19 CDT Tu Landeros MD [facility] CPT-07850 Level 4 Est. Patient 14:06:04 ORNAMENTAL BRICK INSTALLER Tu Landeros MD [facility] CPT-92798 Level 3 Est. 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 Patient 10:06:54 [employer]RNAMENTAL BRICK INSTALLER [facility] Level 4 Est. Patient 13:50:18 ORNAMENTAL BRICK INSTALLER Tu Landeros MD [facility] CPT-35733 Level 3 Est. Patient 10:30:04 CDT Tu Landeros MD [facility] CPT-38312 Level 4 Est. Patient 11:03:38 CDT Tu Landeros MD [facility] CPT-52820 Level 3 Est. Patient 10:20:44 CDT Fab Morales DO [facility] CPT-45105 Level 4 Est. Patient 14:38:57 CDT Tu Landeros MD [facility] CPT-99500 Level 4 Est. 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 Patient 09:45:25 CDT Tu Landeros MD [facility] CPT-75525 Level 4 Est. Patient 09:05:20 ORNAMENTAL BRICK INSTALLER Tu Landeros MD [facility] CPT-14510 Level 4 Est. Patient 14:09:06 CDT Tu Landeros MD [facility] CPT-64219 Level 3 Est. Patient 13:36:54 CDT Tu Landeros MD [facility] CPT-15229 Level 3 Est. Patient 08:59:14 CDT Tu Landeros MD [facility] CPT-02588 Level 3 Est. Patient 13:48:35 CDT Fab Morales DO [facility] CPT-77516 Level 4 Est. Patient 10:05:48 CDT Tu Landerso MD [facility] CPT-66313 Level 3 Est. Patient 13:38:42 CDT Marek BANKS [facility] CPT-44315 Level 5 Est. Patient 08:08:39 CDT Jerrica FRANCIS [facility] CPT-41414 Level 4 Est. Patient 14:23:38 CDT Tu Landeros MD [facility] CPT-77892 Level 3 Est. Patient 11:44:04 CDT Tu Landeros MD [facility] CPT-02207 Level 3 Est. 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 Patient 12:42:49 CDT Tu Landeros MD [facility] CPT-52138 Level 3 Est. Patient 11:52:06 CDT Tu Landeros MD [facility] CPT-26901 Level 3 Est. Patient 13:58:11 CDT Tu Landeros MD [facility] CPT-08859 Level 3 Est. Patient 17:50:07 CDT Fab Morales DO [facility] CPT-07660 Level 3 Est. Patient 12:06:29 CDT Elvira Cervantes MD [facility] CPT-25519 Level 3 Est. Patient 15:50:32 CDT Tu Landeros MD [facility] CPT-06073 Level 4 Est. Patient 16:08:29 CDT Tu Landeros MD [facility] CPT-81038 Level 3 Est. Patient 16:04:19 CDT Tu Landeros MD [facility] CPT-51846 Level 3 Est. 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 Patient 16:24:02 ORNAMENTAL BRICK INSTALLER Tu Landeros MD [facility] CPT-54095 Level 3 Est. Patient 17:21:23 ORNAMENTAL BRICK INSTALLER Tu Landeros MD [facility] Procedures Code Procedure Name Date Entry Date Standard Description CPT-16509 Shoulder, right, comp min 2V - XRAY USE ONLY 13:50:22 CDT CPT-G0009 Administration of Pneumococcal Vaccine 15:08:26 CDT CPT-84031 Prevnar 13 Intramuscular Suspension 15:08:26 CDT 10/08 CPT-G0439 [facility] Annual Wellness Exam 14:29:22 CDT CPT-86237 Venipuncture Draw Fee 13:15:35 CDT CPT-08842 Magnesium - LAB USE ONLY 11:14:20 ORNAMENTAL BRICK INSTALLER CPT-34938 Lipid - LAB USE ONLY 11:14:20 ORNAMENTAL BRICK INSTALLER CPT-32656 HGBA1C - LAB USE ONLY 11:14:20 ORNAMENTAL BRICK INSTALLER CPT-70537 CMP - LAB USE ONLY 11:14:19 ORNAMENTAL BRICK INSTALLER CPT-87523 CBC - LAB USE ONLY 11:14:19 ORNAMENTAL BRICK INSTALLER CPT-86064 Venipuncture Draw Fee 11:14:18 ORNAMENTAL BRICK INSTALLER CPT-16679 First Vx - Ix admin for Medicare patients 16:46:52 CDT CPT-01704 Fluzone Preservative Free Intramuscular Suspension 16:46 :51 CDT CPT-98279 CBC - LAB USE ONLY 17:14:46 CDT CPT-28170 HGBA1C - LAB USE ONLY 17:14:46 CDT CPT-09945 Venipuncture Draw Fee 17:14:46 CDT CPT-G0438 Initial Annual Wellness Exam 14:13:04 CDT CPT-05965 Breathing Tx 10:06:54 ORNAMENTAL BRICK INSTALLER CPT-40774 Postop F/U Visit 10:02:45 CDT CPT-LR Lesion Removal 09:02:56 CDT CPT-JTINJ Asp/Joint Injection 15:51:27 ORNAMENTAL [employer]ST[employer]ER CPT-OV Office Visit 15:52:02 ORNAMENTAL [employer]ICK IN[employer]ER CPT-OV Office Visit 15:45:11 CDT CPT-000 Give Zostavax 14:09:06 CDT CPT-71263 Administration single or combination vaccine inc oral 15 :19:04 CDT CPT-75497 Zoster Vaccine (Zostavax) 15:19:04 CDT CPT-03554 Administration single or combination vaccine inc oral 20 :51:03 CDT CPT-86638 Influenza split virus > age 3 20:51:03 CDT CPT-98585 No Charge Offi Visit 14:52:03 CDT CPT-OV Office Visit 14:57:43 CDT CPT-OV Office Visit 15:22:32 CDT CPT-09122 Administration single or combination vaccine inc oral 11 :33:15 CDT CPT-90097 Influenza split virus > age 3 11:33:15 CDT
--- OUTSIDE RECORDS SUMMARY | 2018-04-25 16:28 | XMS REPORT | Clinical Summary ---
Author Author Admin, SACHI Organization [employer] Address Unknown Phone Unavailable Allergies, Adverse Reactions, [...] po TID PRN Muscle Spasm CYCLOBENZAPRINE HCL 82293396782 Active Tu Landeros MD Active DICLOFENAC SODIUM 50 MG ORAL TBEC 1 po BID PRN Pain DICLOFENAC SODIUM 62605834987 Delores Landeros MD Active INVOKANA 100 MG ORAL TABS 1 po qd CANAGLIFLOZIN 01348976294 Active Tu Landeros MD Active GLIPIZIDE 5 MG ORAL TABS 1 po qd GLIPIZIDE 01850082997 No Longer Active Tu Landeros MD Active VENLAFAXINE HCL 75 MG ORAL TABS 1 po BID VENLAFAXINE HCL 99248816157 Active Tu Landeros MD Active GLIMEPIRIDE 1 MG ORAL TABS 1 po qd GLIMEPIRIDE 60573477025 No Longer Active Tu Landeros MD Active TRUE METRIX BLOOD GLUCOSE TEST INVITR STRP Test blood sugar BID Dx: E11.9 GLUCOSE BLOOD 89478120349 Active Tu Landeros MD Active TRUE METRIX AIR GLUCOSE METER W/DEVICE KIT Test blood glucose BID Dx: E11.9 BLOOD GLUCOSE MONITORING SUPPL 27844516005 Active Tu Landeros MD Active TRUETEST TEST INVITR STRP test blood sugar twice daily. DX 250.0 GLUCOSE BLOOD 03111439819 No Longer Active Mirna Stanley LPN Active TRUEDRAW LANCING DEVICE MISC test blood sugar twice daily dx: 250.00 LANCET DEVICES 06547663373 No Longer Active Mirna Stanley LPN Active ENALAPRIL MALEATE 20 MG TABS 2 po qd ENALAPRIL MALEATE 59326892929 Active Tu Landeros MD Active SUPER B COMPLEX/VITAMIN C TABS 1 qd B COMPLEX-C 27927492983 No Longer Active Tu Landeros MD Active ASPIRIN EC 81 MG ORAL TBEC 1 po qd ASPIRIN 41270493005 Active Tu Landeros MD Active GLUCOSAMINE 500 MG TABS 2 po qd GLUCOSAMINE Active Tu Landeros MD Active SIMVASTATIN 40 MG TABS 0.5 po qHS SIMVASTATIN 26140928455 Active Tu Landeros MD Active FISH OIL 1000 MG CAPS 1 po qd OMEGA-3 FATTY ACIDS 18629647965 Active Tu Landeros MD Active METFORMIN HCL 1000 MG TABS 1 po BID METFORMIN HCL 07275811421 Active Tu Landeros MD Active KLOR-CON 10 10 MEQ CR-TABS 2 po qd POTASSIUM CHLORIDE 82171496174 Active Tu Landeros MD Active FUROSEMIDE 40 MG TAB 1 po qd FUROSEMIDE 37062360309 Active Tu Landeros MD Active REQUIP 2 MG ORAL TABS 1 po qHS PRN Restless legs ROPINIROLE HCL 93671455693 Active Tu Landeros MD Active GABAPENTIN 100 MG CAPS 1 po BID GABAPENTIN 95223347386 Active Tu Landeros MD Active REQUIP 2 MG TABS Take one tablet at bedtime prn ROPINIROLE HCL 97093530863 No Longer Active Tu Landeros MD Active VENTOLIN HFA 108 (90 BASE) MCG/ACT AERS 1-2 puffs every 4 hours if needed for cough/congestion ALBUTEROL SULFATE 70517228444 No Longer Active Ambika Aden APRN Active ZITHROMAX 250 MG TAB 2 po today, then 1 po q days 2-5 AZITHROMYCIN 08524809990 No Longer Active Miranda Suresh APRN Active FLONASE 50 MCG/ACT SUSP 1 spray each nostril twice daily until bottle empty FLUTICASONE PROPIONATE 48436820308 No Longer Active Tu Landeros MD Active COLACE 100 MG CAP 1 po BID PRN Constipation DOCUSATE SODIUM 67368653109 Active Tu Landeros MD Active TRUERESULT BLOOD GLUCOSE W/DEVICE KIT test blood sugar twice daily dx 250.00 BLOOD GLUCOSE MONITORING SUPPL 45487534759 No Longer Active Tu Landeros MD Active TRUEDRAW LANCING DEVICE MISC Test twice a day dx 250.0 LANCET DEVICES 77499653403 No Longer Active Tu Landeros MD Active PREDNISONE 20 MG TAB 2 tablets once daily for 2 days, then 1 tablet once daily for 2 days PREDNISONE 17402505377 No Longer Active Tu Landeros MD Active DICLOFENAC SODIUM 50 MG TBEC 1 tablet by mouth three times a day as needed DICLOFENAC SODIUM 78393840519 No Longer Active Fab W Andrew DO Active EMBRACE BLOOD GLUCOSE TEST STRP test blood sugar twice daily DX 250.0 2014 GLUCOSE BLOOD 97712823360 No Longer Active Tu Landeros MD Active TRUETEST TEST STRP test blood sugar three times daily dx: 250.00 GLUCOSE BLOOD 08191282377 No Longer Active Suze VOGEL Active TRUERESULT BLOOD GLUCOSE W/DEVICE KIT use to test blood sugar tid dx: 250.00 BLOOD GLUCOSE MONITORING SUPPL 00798972886 No Longer Active Suze Hardenehart RMA Active ALIGN 4 MG CAPS 1 tid PROBIOTIC PRODUCT 54961312353 No Longer Active Shaun Sy MD Active CIPRO 500 MG TABS 1 bid x 14 days start 09-28-13 CIPROFLOXACIN HCL 46054787616 No Longer Active Shaun Sy MD Active TRAMADOL HCL 50 MG TABS 1-2 tablets every 6 hours as needed for pain TRAMADOL HCL 58202133336 Active Tu Landeros MD Active HYDROCODONE-ACETAMINOPHEN 5-325 MG TABS 1 tab by mouth every 6 hours as needed for pain HYDROCODONE-ACETAMINOPHEN 72966801410 No Longer Active Tu Landeros MD Active OMEPRAZOLE 20 MG CPDR 1 po q a.m. OMEPRAZOLE 18827484401 Active Lesli Kellogg APRN Active GABAPENTIN 100 MG CAPS 1 po bid GABAPENTIN 61857558908 No Longer Active Tu Landeros MD Active B-12 100 MCG TABS Take one by mouth daily CYANOCOBALAMIN 01653483481 No Longer Active Tu Landeros MD Active BACTRIM DS 800-160 MG TABS 1 bid x 14 day start 09-28-13 SULFAMETHOXAZOLE-TRIMETHOPRIM 51746785615 No Longer Active Tu Landeros MD Active CARVEDILOL 12.5 MG TABS 1 po BID CARVEDILOL 07657792520 Active Tu Landeros MD Active TRILIPIX 135 MG CPDR 1 q hs CHOLINE FENOFIBRATE 95827236216 Active Tu Landeros MD Active FENOFIBRATE 145 MG TABS 1 po qd FENOFIBRATE 80034159257 No Longer Active JASPREET Perez Active OMEPRAZOLE 20 MG TBEC 1 PO 30 MIN BEFORE 1ST MEAL OMEPRAZOLE 06486465966 No Longer Active JASPREET Perez Active SIMVASTATIN 40 MG TABS Take one by mouth daily SIMVASTATIN 34978601451 No Longer Active JASPREET Perez Active VENLAFAXINE HCL 75 MG TABS 1 po BID VENLAFAXINE HCL 66696798602 No Longer Active JASPREET Perez Active CIPRO 500 MG TAB 1 tablet by mouth twice daily CIPROFLOXACIN HCL 49554834534 No Longer Active Tu Landeros MD Active VENLAFAXINE HCL 37.5 MG TABS 1 po BID VENLAFAXINE HCL 85560703687 No Longer Active Suze Nicole [facility] Active LAMISIL 250 MG TAB 1 po qd TERBINAFINE HCL 36442970492 No Longer Active Tu Landeros MD Active LORTAB 5 5-500 MG TABS 1/2 to 1 tablet by mouth every 4 hours as needed for pain HYDROCODONE-ACETAMINOPHEN 76145209595 No Longer Active Tu Landeros MD Active HYDROCODONE-ACETAMINOPHEN 5-500 MG TABS take one po Q 4-6 hours prn HYDROCODONE-ACETAMINOPHEN 54599803046 No Longer Active Tu Landeros MD Active BACTRIM DS 800-160 MG TABS 1 po BID x 7 days SULFAMETHOXAZOLE-TRIMETHOPRIM 53472767523 No Longer Active Tu Landeros MD Active VENLAFAXINE HCL 75 MG TABS 1 po BID VENLAFAXINE HCL 23270293370 No Longer Active Elvira Cervantes MD PhD Active TRAMADOL HCL 50 MG TABS 1 tablets every 6 hours as needed for pain TRAMADOL HCL 24665907182 No Longer Active Tu Landeros MD Active ACCU-CHEK FASTCLIX LANCETS MISC Use to check bloodsugar three times daily as needed LANCETS 09606325903 No Longer Active Tu Landeros MD Active ACCU-CHEK KEYONA PLUS STRP Use for testing bloodsugars three times daily as needed GLUCOSE BLOOD 14893951983 No Longer Active Tu Landeros MD Active ACCU-CHEK KEYONA PLUS W/DEVICE KIT Use for testing bloodsugars three times daily as needed BLOOD GLUCOSE MONITORING SUPPL 10027091214 No Longer Active Tu Landeros MD Active SPIRONOLACTONE 25 MG TAB 0.5 tablet by mouth daily SPIRONOLACTONE 86609765014 No Longer Active Tu Landeros MD Active ALPRAZOLAM 0.5 MG TABS 1 tab every 6hrs as needed ALPRAZOLAM 64088699422 No Longer Active Tu Landeros MD Active AUGMENTIN 875-125 MG TAB 1 tab by mouth twice daily with food AMOXICILLIN-POT CLAVULANATE 26593086053 No Longer Active Tu Landeros MD Active PREDNISONE 20 MG TAB 2 tabs daily for 3 days, 1 tab daily for 3 days, 1/2 tab daily for 2 days PREDNISONE 87070271213 No Longer Active Tu Landeros MD Active XANAX 0.5 MG TABS 1 tablet every 6 hrs prn ALPRAZOLAM 34421346035 No Longer Active Tu Landeros MD Active PREDNISONE 20 MG TAB 2 tabs daily for 3 days, 1 tab daily for 3 days, 1/2 tab daily for 2 days PREDNISONE 11674784816 No Longer Active Tu Landeros MD Active TRIAMCINOLONE ACETONIDE 0.1 % OINT Apply to affected areas TID for up to 2 weeks TRIAMCINOLONE ACETONIDE 48391604211 No Longer Active Tu aLnderos MD Active LORTAB 5 5-500 MG TABS 1/2 to 1 tablet by mouth every 4 hours as needed for pain HYDROCODONE-ACETAMINOPHEN 14795409062 No Longer Active Tu Landeros MD Active MULTIVITAMINS TABS Take one by mouth daily MULTIPLE VITAMIN 72023903045 No Longer Active Tu Landeros MD Active MELATONIN 5 MG TABS Take one by mouth daily MELATONIN 56860419412 No Longer Active Tu Landeros MD Active SOMA 350 MG TAB 1 po q 6 hours prn spasm CARISOPRODOL 70883083243 No Longer Active Tu Landeros MD Active MECLIZINE HCL 25 MG CHEW TAB 1 four times a day as needed for dizziness 08/05 MECLIZINE HCL 72437687448 No Longer Active Fab Morales DO Active ANGEL BREEZE 2 TEST DISK test tid prn GLUCOSE BLOOD 19586336020 No Longer Active Negra Scott RN Active REGLAN 10 MG TAB 1 po TID PRN Nausea METOCLOPRAMIDE HCL 81289429815 No Longer Active Tu Landeros MD Active METFORMIN HCL 500 MG TABS 1 PO BID METFORMIN HCL 80447433543 No Longer Active Tu Landeros MD Active AMBIEN 10 MG TAB 1 tab by mouth at bedtime as needed for sleep ZOLPIDEM TARTRATE 66944988938 No Longer Active Tu Landeros MD Active FLUOXETINE HCL 40 MG CAPS 1 po q day FLUOXETINE HCL 99547276949 No Longer Active Mayra Monroe Active TRILIPIX 135 MG CPDR 1 po qd CHOLINE FENOFIBRATE 50747965584 No Longer Active Tu Landeros MD Active AMBIEN 10 MG TAB 1 tab by mouth at bedtime as needed for sleep AMBIEN 10 MG TAB 425888 ZOLPIDEM TARTRATE Inactive METFORMIN HCL 500 MG TABS 1 PO BID METFORMIN HCL 500 MG TABS 054333 METFORMIN HCL Inactive REGLAN 10 MG TAB 1 po TID PRN Nausea REGLAN 10 MG TAB 856699 METOCLOPRAMIDE HCL Inactive MECLIZINE HCL 25 MG CHEW TAB 1 four times a day as needed for dizziness 08/05 MECLIZINE HCL 25 MG CHEW TAB 479855 MECLIZINE HCL Inactive SOMA 350 MG TAB 1 po q 6 hours prn spasm SOMA 350 MG TAB 488797 CARISOPRODOL Inactive MELATONIN 5 MG TABS Take one by mouth daily MELATONIN 5 MG TABS 313537 MELATONIN Inactive MULTIVITAMINS TABS Take one by mouth daily MULTIVITAMINS TABS MULTIPLE VITAMIN Inactive LORTAB 5 5-500 MG TABS 1/2 to 1 tablet by mouth every 4 hours as needed for pain LORTAB 5 5-500 MG TABS HYDROCODONE- ACETAMINOPHEN Inactive XANAX 0.5 MG TABS 1 tablet every 6 hrs prn XANAX 0.5 MG TABS 913084 ALPRAZOLAM Inactive AUGMENTIN 875-125 MG TAB 1 tab by mouth twice daily with food AUGMENTIN 875-125 MG TAB 215884 AMOXICILLIN-POT CLAVULANATE Inactive ALPRAZOLAM 0.5 MG TABS 1 tab every 6hrs as needed ALPRAZOLAM 0.5 MG TABS 433707 ALPRAZOLAM Inactive SPIRONOLACTONE 25 MG TAB 0.5 tablet by mouth daily SPIRONOLACTONE 25 MG TAB 147759 SPIRONOLACTONE Inactive ACCU-CHEK KEYONA PLUS W/DEVICE KIT Use for testing bloodsugars three times daily as needed ACCU-CHEK KEYONA PLUS W/DEVICE KIT BLOOD GLUCOSE MONITORING SUPPL Inactive ACCU-CHEK KEYONA PLUS STRP Use for testing bloodsugars three times daily as needed ACCU-CHEK KEYONA PLUS STRP GLUCOSE BLOOD Inactive ACCU-CHEK FASTCLIX LANCETS MISC Use to check bloodsugar three times daily as needed ACCU-CHEK FASTCLIX LANCETS MISC 29332652742 [facility] Inactive TRAMADOL HCL 50 MG TABS 1 tablets every 6 hours as needed for pain TRAMADOL HCL 50 MG TABS 478544 TRAMADOL HCL Inactive VENLAFAXINE HCL 75 MG TABS 1 po BID VENLAFAXINE HCL 75 MG TABS 342671 VENLAFAXINE HCL Inactive HYDROCODONE-ACETAMINOPHEN 5-500 MG TABS take one po Q 4-6 hours prn HYDROCODONE-ACETAMINOPHEN 5-500 MG TABS HYDROCODONE- ACETAMINOPHEN Inactive LORTAB 5 5-500 MG TABS 1/2 to 1 tablet by mouth every 4 hours as needed for pain LORTAB 5 5-500 MG TABS HYDROCODONE- ACETAMINOPHEN Inactive LAMISIL 250 MG TAB 1 po qd LAMISIL 250 MG TAB 982135 TERBINAFINE HCL Inactive VENLAFAXINE HCL 37.5 MG TABS 1 po BID VENLAFAXINE HCL 37.5 MG TABS 007002 VENLAFAXINE HCL Inactive CIPRO 500 MG TAB 1 tablet by mouth twice daily CIPRO 500 MG TAB 821665 CIPROFLOXACIN HCL Inactive VENLAFAXINE HCL 75 MG TABS 1 po BID VENLAFAXINE HCL 75 MG TABS 979340 VENLAFAXINE HCL Inactive SIMVASTATIN 40 MG TABS Take one by mouth daily SIMVASTATIN 40 MG TABS 026919 SIMVASTATIN Inactive OMEPRAZOLE 20 MG TBEC 1 PO 30 MIN BEFORE 1ST MEAL OMEPRAZOLE 20 MG TBEC 850105 OMEPRAZOLE Inactive FENOFIBRATE 145 MG TABS 1 po qd FENOFIBRATE 145 MG TABS 665425 FENOFIBRATE Inactive BACTRIM DS 800-160 MG TABS 1 bid x 14 day start 09-28-13 BACTRIM DS 800-160 MG TABS 002114 SULFAMETHOXAZOLE-TRIMETHOPRIM Inactive B-12 100 MCG TABS Take one by mouth daily B-12 100 MCG TABS CYANOCOBALAMIN Inactive GABAPENTIN 100 MG CAPS 1 po bid GABAPENTIN 100 MG CAPS 043200 GABAPENTIN Inactive HYDROCODONE-ACETAMINOPHEN 5-325 MG TABS 1 tab by mouth every 6 hours as needed for pain HYDROCODONE-ACETAMINOPHEN 5-325 MG TABS 279914 HYDROCODONE-ACETAMINOPHEN Inactive CIPRO 500 MG TABS 1 bid x 14 days start 09-28-13 CIPRO 500 MG TABS 209359 CIPROFLOXACIN HCL Inactive ALIGN 4 MG CAPS [...] as needed DICLOFENAC SODIUM 50 MG TBEC 389141 DICLOFENAC SODIUM Inactive PREDNISONE 20 MG TAB 2 tablets once daily for 2 days, then 1 tablet once daily for 2 days PREDNISONE 20 MG TAB 918838 PREDNISONE Inactive TRUEDRAW LANCING DEVICE MISC Test twice a day dx 250.0 TRUEDRAW LANCING DEVICE MISC LANCET DEVICES Inactive TRUERESULT BLOOD GLUCOSE W/DEVICE KIT test blood sugar twice daily dx 250.00 TRUERESULT BLOOD GLUCOSE W/DEVICE KIT BLOOD GLUCOSE MONITORING SUPPL Inactive FLONASE 50 MCG/ACT SUSP 1 spray each nostril twice daily until bottle empty FLONASE 50 MCG/ACT SUSP 6050656 FLUTICASONE PROPIONATE Inactive VENTOLIN HFA 108 (90 BASE) MCG/ACT AERS 1-2 puffs every 4 hours if needed for cough/congestion VENTOLIN HFA 108 (90 BASE) MCG/ACT AERS ALBUTEROL SULFATE Inactive REQUIP 2 MG TABS Take one tablet at bedtime prn REQUIP 2 MG TABS 017477 ROPINIROLE HCL Inactive SUPER B COMPLEX/VITAMIN C TABS 1 qd SUPER B COMPLEX/ VITAMIN C TABS 53177470750 B COMPLEX-C Inactive TRUEDRAW LANCING DEVICE MISC test blood sugar twice daily dx: 250.00 TRUEDRAW LANCING DEVICE MISC LANCET DEVICES Inactive TRUETEST TEST INVITR STRP test blood sugar twice daily. DX 250.0 TRUETEST TEST INVITR STRP GLUCOSE BLOOD Inactive TRIAMCINOLONE ACETONIDE 0.1 % OINT Apply to affected areas TID for up to 2 weeks TRIAMCINOLONE ACETONIDE 0.1 % OINT 3143102 TRIAMCINOLONE ACETONIDE Inactive PREDNISONE 20 MG TAB 2 tabs daily for 3 days, 1 tab daily for 3 days, 1/2 tab daily for 2 days PREDNISONE 20 MG TAB 980505 PREDNISONE Inactive PREDNISONE 20 MG TAB 2 tabs daily for 3 days, 1 tab daily for 3 days, 1/2 tab daily for 2 days PREDNISONE 20 MG TAB 713511 PREDNISONE Inactive BACTRIM DS 800-160 MG TABS 1 po BID x 7 days BACTRIM DS 800-160 MG TABS 047870 SULFAMETHOXAZOLE-TRIMETHOPRIM Inactive ZITHROMAX 250 MG TAB 2 po today, then 1 po q days 2-5 ZITHROMAX 250 MG TAB 1271992 AZITHROMYCIN Inactive Advance Directives Directive Description Start Date DISCUSSED WITH PATIENT -- NO DECISION MADE Immunizations Vaccine Administration Date Value Standard Description Seasonal influenza vaccine, injectable, containing preservative, for > 3 years old (Afluria, FluLaval, Fluzone, Fluvirin, Fluarix, Agriflu(>=18 yo)) Fluzone (>3 yrs.) [[id number]] Influenza, seasonal, injectable influenza immunization (Flu Vax) has been administered 02/22/2012 influenza virus vaccine, unspecified formulation Seasonal influenza vaccine, injectable, containing preservative, for > 3 years old (Afluria, FluLaval, Fluzone, Fluvirin, Fluarix, Agriflu(>=18 yo)) Fluzone (>3 yrs.) [[id number]] Influenza, seasonal, injectable Vital Signs Date Name [...] Magnesium - Chemistry sodium, serum 143 mmol/L 547-863 2649/01/10 carbon dioxide, venous blood 28.0 mmol/L 21.0-32.0 potassium, serum 4.5 mmol/L 3.5-5.2 chloride, serum 104 mmol/L 98-107 blood glucose 158 mg/dL 65-110 urea nitrogen, blood 23 mg/dL 7-18 creatinine, serum 1.06 mg/dL 0.55-1.30 alanine aminotransferase (SGPT), serum 42 U/L 12-78 aspartate aminotransferase (SGOT), serum 32 U/L 15-37 calcium, serum 9.3 mg/dL 8.5-10.1 bilirubin, serum, total 0.20 mg/dL 0.00-1.00 cholesterol, serum 177 mg/dL 384-237 5399/01/10 triglyceride, serum, fasting 320 mg/dL 30-200 HDL cholesterol, serum 46 mg/dL 32-96 LDL cholesterol, serum 67 mg/dL 0-130 Lab Report: COMPREHENSIVE METABOLIC PANEL, LIPID PANEL, HEMOGLOBIN A1c - Chemistry cholesterol, serum 135 mg/dL 331-752 9839/05/17 HDL cholesterol, serum 41 mg/dL > OR=46 triglyceride, serum, fasting 206 mg/dL <150 LDL cholesterol, serum 53 MG/DL (CALC) mg/dL <130 cholesterol/HDL ratio, serum 3.3 (calc) < OR=5.0 Lab Report: HGBA1C - Chemistry hemoglobin A1C, blood, as % of total hemoglobin 7.4 % 4.3-6.0 sodium, serum 140 mmol/L 841-900 6418/09/07 potassium, serum 4.3 mmol/L 3.5-5.2 chloride, serum [...] <30 Encounters Code Encounter Date Provider Facility CPT-57211 Level 3 Est. Patient 13:33:09 CDT Tu Landeros MD [facility] CPT-06737 Level 4 Est. Patient 14:29:21 CDT Tu Landeros MD [facility] CPT-37893 Level 4 Est. Patient 09:08:17 METROLOGY SPECIALIST Tu Landeros MD [facility] CPT-74572 Level 4 Est. Patient 14:40:19 CDT Tu Landeros MD [facility] CPT-40612 Level 4 Est. Patient 14:06:04 METROLOGY SPECIALIST Tu Landeros MD [facility] CPT-58621 Level 3 Est. Patient 14:05:18 METROLOGY SPECIALIST Tu Landeros MD [facility] CPT-34338 Level 3 Est. Patient 10:06:54 METROLOGY SPECIALIST Miranda Suresh [facility] CPT-00644 Level 4 Est. Patient 13:50:18 METROLOGY SPECIALIST Tu Landeros MD [facility] CPT-02545 Level 3 Est. Patient 10:30:04 CDT Tu Landeros MD [facility] CPT-54932 Level 4 Est. Patient 11:03:38 CDT Tu Landeros MD [facility] CPT-14124 Level 3 Est. Patient 10:20:44 CDT Fab Morales DO [facility] CPT-79606 Level 4 Est. Patient 14:38:57 CDT Tu Landeros MD [facility] CPT-98416 Level 4 Est. Patient 14:27:39 METROLOGY SPECIALIST Tu Landeros MD [facility] CPT-20111 Level 4 Est. Patient 09:45:25 CDT Tu Landeros MD [facility] CPT-82345 Level 4 Est. Patient 09:05:20 METROLOGY SPECIALIST Tu Landeros MD [facility] CPT-40021 Level 4 Est. Patient 14:09:06 CDT Tu Landeros MD [facility] CPT-66479 Level 3 Est. Patient 13:36:54 CDT Tu Landeros MD [facility] CPT-35895 Level 3 Est. Patient 08:59:14 CDT Tu Landeros MD [facility] CPT-08637 Level 3 Est. Patient 13:48:35 CDT Fab Morales DO [facility] CPT-08885 Level 4 Est. Patient 10:05:48 CDT Tu Landeros MD [facility] CPT-25198 Level 3 Est. Patient 13:38:42 CDT Marek BANKS [facility] CPT-23543 Level 5 Est. Patient 08:08:39 CDT Jerrica FRANCIS [facility] CPT-56812 Level 4 Est. Patient 14:23:38 CDT Tu Landeros MD [facility] CPT-05433 Level 3 Est. Patient 11:44:04 CDT Tu Landeros MD [facility] CPT-33611 Level 3 Est. Patient 11:03:20 METROLOGY SPECIALIST Tu Landeros MD [facility] CPT-96666 Level 3 Est. Patient 11:03:14 METROLOGY SPECIALIST Tu Landeros MD [facility] CPT-73649 Level 3 Est. Patient 12:42:49 CDT Tu Landeros MD [facility] CPT-91194 Level 3 Est. Patient 11:52:06 CDT Tu Landeros MD [facility] CPT-40196 Level 3 Est. Patient 13:58:11 CDT Tu Landeros MD [facility] CPT-49134 Level 3 Est. Patient 17:50:07 CDT Fab Morales DO [facility] CPT-12162 Level 3 Est. Patient 12:06:29 CDT Elvira Cervantes MD [facility] CPT-72812 Level 3 Est. Patient 15:50:32 CDT Tu Landeros MD [facility] CPT-90457 Level 4 Est. Patient 16:08:29 CDT Tu Landeros MD [facility] CPT-73641 Level 3 Est. Patient 16:04:19 CDT Tu Landeros MD [facility] CPT-48563 Level 3 Est. Patient 11:22:30 METROLOGY SPECIALIST Tu Landeros MD [facility] CPT-06691 Level 4 Est. Patient 16:24:02 METROLOGY SPECIALIST Tu Landeros MD [facility] CPT-15042 Level 3 Est. Patient 17:21:23 METROLOGY SPECIALIST Tu Landeros MD [facility] Procedures Code Procedure Name Date Entry Date Standard Description CPT-06447 Shoulder, right, comp min 2V - XRAY USE ONLY 13:50:22 CDT CPT-G0009 Administration of Pneumococcal Vaccine 15:08:26 CDT CPT-75028 Prevnar 13 Intramuscular Suspension 15:08:26 CDT 10/08 CPT-G0439 [facility] Annual Wellness Exam 14:29:22 CDT CPT-85653 Venipuncture Draw Fee 13:15:35 CDT CPT-59033 Magnesium - LAB USE ONLY 11:14:20 METROLOGY SPECIALIST CPT-43424 Lipid - LAB USE ONLY 11:14:20 METROLOGY SPECIALIST CPT-65693 HGBA1C - LAB USE ONLY 11:14:20 METROLOGY SPECIALIST CPT-99887 CMP - LAB USE ONLY 11:14:19 METROLOGY SPECIALIST CPT-05906 CBC - LAB USE ONLY 11:14:19 METROLOGY SPECIALIST CPT-32253 Venipuncture Draw Fee 11:14:18 METROLOGY SPECIALIST CPT-06594 First Vx - Ix admin for Medicare patients 16:46:52 CDT CPT-48579 Fluzone Preservative Free Intramuscular Suspension 16:46 :51 CDT CPT-69381 CBC - LAB USE ONLY 17:14:46 CDT CPT-95345 HGBA1C - LAB USE ONLY 17:14:46 CDT CPT-03757 Venipuncture Draw Fee 17:14:46 CDT CPT-G0438 Initial Annual Wellness Exam 14:13:04 CDT CPT-33043 Breathing Tx 10:06:54 METROLOGY SPECIALIST CPT-79127 Postop F/U Visit 10:02:45 CDT CPT-LR Lesion Removal 09:02:56 CDT CPT-JTINJ Asp/Joint Injection 15:51:27 METROLOGY SPECIALIST CPT-OV Office Visit 15:52:02 METROLOGY SPECIALIST CPT-OV Office Visit 15:45:11 CDT CPT-000 Give Zostavax 14:09:06 CDT CPT-87713 Administration single or combination vaccine inc oral 15 :19:04 CDT CPT-81530 Zoster Vaccine (Zostavax) 15:19:04 CDT CPT-54346 Administration single or combination vaccine inc oral 20 :51:03 CDT CPT-19566 Influenza split virus > age 3 20:51:03 CDT CPT-29807 No Charge Offi Visit 14:52:03 CDT CPT-OV Office Visit 14:57:43 CDT CPT-OV Office Visit 15:22:32 CDT CPT-86222 Administration single or combination vaccine inc oral 11 :33:15 CDT CPT-73907 Influenza split virus > age 3 11:33:15 CDT
--- OUTSIDE RECORDS SUMMARY | 2018-04-25 16:30 | XMS REPORT | Clinical Summary ---
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 Acute upper respiratory infections of unspecified site [...] POSITIONAL VERTIGO ICD-386.11 Inactive Tu Landeros MD PRESSURE ULCER UNSPECIFIED SITE ICD-707.00 Inactive Tu Landeros MD LOCALIZED SUPERFICIAL SWELLING MASS OR LUMP ICD-782.2 Inactive Tu Landeros MD ONYCHOMYCOSIS ICD-110.1 Inactive Tu Landeros MD Open wound of abdominal wall, anterior, complicated ICD-879.3 Inactive Tu Landeros MD Upper respiratory infection, viral ICD-465.9 Tessa Sy MD Open wound of other and unspecified parts of trunk, complicated ICD-879.7 Inactive uT Landeros MD Knee pain, left, acute ICD-719.46 [...] pain, right ICD-719.41 Inactive Tu Landeros MD CONTUSION OF UNSPECIFIED SITE ICD-924.9 Inactive Tu Landeros MD Great toe pain ICD-729.5 Inactive Tu Landeros MD Medication List Medication Instructions Start Date Stop Date Generic Name NDC Status Provider Patient Instruction NASONEX 50 MCG/ACT NASAL SUSPENSION 2 actuations in each nostril q day 07/15 MOMETASONE FUROATE [id number] Active Lesli Kellogg APRN Active GUAIFENESIN ER 600 MG ORAL TABLET EXTENDED RELEASE 12 HOUR 1 twice a day as needed for congestion GUAIFENESIN 94932346736 Active Lesli Kellogg APRN Active MAGNESIUM OXIDE 400 MG ORAL TABLET 1 po BID MAGNESIUM OXIDE 07006001920 Active Tu Landeros MD Active SIMVASTATIN 20 MG ORAL TABLET 0.5 po qHS SIMVASTATIN 65468979146 Active Tu Landeros MD Active DICLOFENAC SODIUM 75 MG ORAL TABLET DELAYED RELEASE 1 po BID PRN Pain DICLOFENAC SODIUM 14407828217 No Longer Active Tu Landeros MD Active GABAPENTIN 100 MG ORAL CAPSULE 1 po TID GABAPENTIN 51295251427 Active Tu Landeros MD Active DICLOFENAC SODIUM 50 MG ORAL TABLET DELAYED RELEASE 1 po BID PRN Pain DICLOFENAC SODIUM 47791026581 No Longer Active Tu Landeros MD Active CYCLOBENZAPRINE HCL 10 MG ORAL TABLET 1 po TID PRN Muscle Spasm CYCLOBENZAPRINE HCL 50192051532 No Longer Active Tu Landeros MD Active INVOKANA 100 MG ORAL TABLET 1 po qd CANAGLIFLOZIN 96486934148 Active Tu Landeros MD Active GLIPIZIDE 5 MG ORAL TABLET 1 po qd GLIPIZIDE 47343968221 No Longer Active Tu Landeros MD Active VENLAFAXINE HCL 75 MG ORAL TABLET 1 po BID VENLAFAXINE HCL 09624582147 Active Tu Landeros MD Active GLIMEPIRIDE 1 MG ORAL TABLET 1 po qd GLIMEPIRIDE 09198748064 No Longer Active Tu Landeros MD Active TRUE METRIX BLOOD GLUCOSE TEST IN VITRO STRIP Test blood sugar BID Dx: E11.9 GLUCOSE BLOOD 96302606892 Active uT Landeros MD Active TRUE METRIX AIR GLUCOSE METER w/Device KIT Test blood glucose BID Dx: E11.9 BLOOD GLUCOSE MONITORING SUPPL 21369075139 Active Tu Landeros MD Active TRUETEST TEST IN VITRO STRIP test blood sugar twice daily. DX 250.0 GLUCOSE BLOOD 36189765706 No Longer Active Mirna Stanley LPN Active TRUEDRAW LANCING DEVICE test blood sugar twice daily dx: 250.00 LANCET DEVICES 05514590261 No Longer Active Mirna Stanley LPN Active ENALAPRIL MALEATE 20 MG ORAL TABLET 2 po qd ENALAPRIL MALEATE 50429533157 Active Tu Landeros MD Active SUPER B COMPLEX/VITAMIN C ORAL TABLET 1 qd B COMPLEX- C 22328549928 No Longer Active Tu Landeros MD Active ASPIRIN EC 81 MG ORAL TABLET DELAYED RELEASE 1 po qd ASPIRIN 33036792920 Active Tu Landeros MD Active GLUCOSAMINE 500 MG TABS 2 po qd GLUCOSAMINE Active Tu Landeros MD Active FISH OIL 1000 MG ORAL CAPSULE 1 po qd OMEGA-3 FATTY ACIDS 84240914056 Active Tu Landeros MD Active METFORMIN HCL 1000 MG ORAL TABLET 1 po BID METFORMIN HCL 31675104799 Active Tu Landeros MD Active KLOR-CON 10 10 MEQ ORAL TABLET EXTENDED RELEASE 2 po qd POTASSIUM CHLORIDE 55238928114 Active Tu Landeros MD Active FUROSEMIDE 40 MG ORAL TABLET 1 po qd FUROSEMIDE 48473909451 Active Tu Landeros MD Active REQUIP 2 MG ORAL TABLET 1 po qHS PRN Restless legs ROPINIROLE HCL 24406511301 Active Tu Landeros MD Active REQUIP 2 MG ORAL TABLET Take one tablet at bedtime prn ROPINIROLE HCL 82433917912 No Longer Active Tu Landeros MD Active VENTOLIN HFA 108 (90 Base) MCG/ACT INHALATION AEROSOL SOLUTION 1-2 puffs every 4 hours if needed for cough/congestion ALBUTEROL SULFATE 31090565101 No Longer Active Ambika Aden APRN Active ZITHROMAX 250 MG ORAL TABLET 2 po today, then 1 po q days 2-5 AZITHROMYCIN 40894447634 No Longer Active Miranda Farah APRN Active FLONASE 50 MCG/ACT NASAL SUSPENSION 1 spray each nostril twice daily until bottle empty FLUTICASONE PROPIONATE 51174664401 No Longer Active Tu Landeros MD Active COLACE 100 MG ORAL CAPSULE 1 po BID PRN Constipation DOCUSATE SODIUM 96435440928 Active Tu Landeros MD Active TRUERESULT BLOOD GLUCOSE w/Device KIT test blood sugar twice daily dx 250.00 BLOOD GLUCOSE MONITORING SUPPL 53046208922 No Longer Active Tu Landeros MD Active TRUEDRAW LANCING DEVICE Test twice a day dx 250.0 LANCET DEVICES 91477975736 No Longer Active Tu Landeros MD Active PREDNISONE 20 MG ORAL TABLET 2 tablets once daily for 2 days, then 1 tablet once daily for 2 days PREDNISONE 89723464573 No Longer Active Tu Landeros MD Active DICLOFENAC SODIUM 50 MG ORAL TABLET DELAYED RELEASE 1 tablet by mouth three times a day as needed DICLOFENAC SODIUM 82760327309 No Longer Active Fab Morales DO Active EMBRACE BLOOD GLUCOSE TEST IN VITRO STRIP test blood sugar twice daily DX 250.0 GLUCOSE BLOOD 09486887641 No Longer Active Tu Landeros MD Active TRUETEST TEST IN VITRO STRIP test blood sugar three times daily dx: 250.00 GLUCOSE BLOOD 26627637054 No Longer Active Suze Nicole NURYSA Active TRUERESULT BLOOD GLUCOSE w/Device KIT use to test blood sugar tid dx: 250.00 BLOOD GLUCOSE MONITORING SUPPL 24188804247 No Longer Active Suze Nicole NURYSA Active ALIGN 4 MG ORAL CAPSULE 1 tid PROBIOTIC PRODUCT 05618282948 No Longer Active Shaun Sy MD Active CIPRO 500 MG ORAL TABLET 1 bid x 14 days start 09-28-13 CIPROFLOXACIN HCL 53057349059 No Longer Active Shaun Sy MD Active TRAMADOL HCL 50 MG ORAL TABLET 1-2 tablets every 6 hours as needed for pain TRAMADOL HCL 52558064522 Active Tu Landeros MD Active HYDROCODONE-ACETAMINOPHEN 5-325 MG ORAL TABLET 1 tab by mouth every 6 hours as needed for pain HYDROCODONE-ACETAMINOPHEN 18170954378 No Longer Active Tu Landeros MD Active OMEPRAZOLE 20 MG ORAL CAPSULE DELAYED RELEASE 1 po q a.m. OMEPRAZOLE 27208482720 Active Fab Morales DO Active GABAPENTIN 100 MG ORAL CAPSULE 1 po bid GABAPENTIN 87832949290 No Longer Active Tu Landeros MD Active B-12 100 MCG ORAL TABLET Take one by mouth daily CYANOCOBALAMIN 32371742889 No Longer Active Tu Landeros MD Active BACTRIM DS 800-160 MG ORAL TABLET 1 bid x 14 day start 09-28-13 SULFAMETHOXAZOLE-TRIMETHOPRIM 17950967923 No Longer Active Tu Landeros MD Active CARVEDILOL 12.5 MG ORAL TABLET 1 po BID CARVEDILOL 55271008979 Active Tu Landeros MD Active TRILIPIX 135 MG ORAL CAPSULE DELAYED RELEASE 1 q hs CHOLINE FENOFIBRATE 12235574809 Active Tu Landeros MD Active FENOFIBRATE 145 MG ORAL TABLET 1 po qd FENOFIBRATE 59000634972 No Longer Active JASPREET Perez Active OMEPRAZOLE 20 MG ORAL TABLET DELAYED RELEASE 1 PO 30 MIN BEFORE 1ST MEAL 2010 OMEPRAZOLE 10184583647 No Longer Active JASPREET Perez Active SIMVASTATIN 40 MG ORAL TABLET Take one by mouth daily SIMVASTATIN 52462992222 No Longer Active JASPREET Perez Active VENLAFAXINE HCL 75 MG ORAL TABLET 1 po BID VENLAFAXINE HCL 96805013961 No Longer Active JASPREET Perez Active CIPRO 500 MG ORAL TABLET 1 tablet by mouth twice daily CIPROFLOXACIN HCL 71181457990 No Longer Active Tu Landeros MD Active VENLAFAXINE HCL 37.5 MG ORAL TABLET 1 po BID VENLAFAXINE HCL 18094986472 No Longer Active Suzebianca Nicole RMA Active LAMISIL 250 MG ORAL TABLET 1 po qd TERBINAFINE HCL 49293530304 No Longer Active Tu Landeros MD Active LORTAB 5-500 MG ORAL TABLET 1/2 to 1 tablet by mouth every 4 hours as needed for pain HYDROCODONE-ACETAMINOPHEN 48466576435 No Longer Active Tu Landeros MD Active HYDROCODONE-ACETAMINOPHEN 5-500 MG ORAL TABLET take one po Q 4-6 hours prn HYDROCODONE-ACETAMINOPHEN 14868499691 No Longer Active Tu Landeros MD Active BACTRIM DS 800-160 MG ORAL TABLET 1 po BID x 7 days SULFAMETHOXAZOLE-TRIMETHOPRIM 09665025875 No Longer Active Tu Landeros MD Active VENLAFAXINE HCL 75 MG ORAL TABLET 1 po BID VENLAFAXINE HCL 98657487864 No Longer Active Elvira Cervantes MD PhD Active TRAMADOL HCL 50 MG ORAL TABLET 1 tablets every 6 hours as needed for pain TRAMADOL HCL 52732411997 No Longer Active Tu Landeros MD Active ACCU-CHEK FASTCLIX LANCETS Use to check bloodsugar three times daily as needed LANCETS 61115696889 No Longer Active Tu Landeros MD Active ACCU-CHEDawson KEYONA PLUS IN VITRO STRIP Use for testing bloodsugars three times daily as needed GLUCOSE BLOOD 66533487490 No Longer Active Tu Landeros MD Active ACCU-CHEK KEYONA PLUS w/Device KIT Use for testing bloodsugars three times daily as needed BLOOD GLUCOSE MONITORING SUPPL 67919516812 No Longer Active Tu Landeros MD Active SPIRONOLACTONE 25 MG ORAL TABLET 0.5 tablet by mouth daily 09/09 SPIRONOLACTONE 05652276615 No Longer Active Tu Landeros MD Active ALPRAZOLAM 0.5 MG ORAL TABLET 1 tab every 6hrs as needed ALPRAZOLAM 83949765023 No Longer Active Tu Landeros MD Active AUGMENTIN 875-125 MG ORAL TABLET 1 tab by mouth twice daily with food AMOXICILLIN-POT CLAVULANATE 34812491123 No Longer Active Tu Landeros MD Active PREDNISONE 20 MG ORAL TABLET 2 tabs daily for 3 days, 1 tab daily for 3 days, 1/2 tab daily for 2 days PREDNISONE 57850353542 No Longer Active Tu Landeros MD Active XANAX 0.5 MG ORAL TABLET 1 tablet every 6 hrs prn ALPRAZOLAM 06331151494 No Longer Active Tu Landeros MD Active PREDNISONE 20 MG ORAL TABLET 2 tabs daily for 3 days, 1 tab daily for 3 days, 1/2 tab daily for 2 days PREDNISONE 09334032912 No Longer Active Tu Landeros MD Active TRIAMCINOLONE ACETONIDE 0.1 % EXTERNAL OINTMENT Apply to affected areas TID for up to 2 weeks TRIAMCINOLONE ACETONIDE 97798512138 No Longer Active Tu Landeros MD Active LORTAB 5-500 MG ORAL TABLET 1/2 to 1 tablet by mouth every 4 hours as needed for pain HYDROCODONE-ACETAMINOPHEN 20780788421 No Longer Active Tu Landeros MD Active MULTIVITAMINS TABS Take one by mouth daily MULTIPLE VITAMIN 42889841205 No Longer Active Tu Landeros MD Active MELATONIN 5 MG ORAL TABLET Take one by mouth daily MELATONIN 49868279428 No Longer Active Tu Landeros MD Active SOMA 350 MG ORAL TABLET 1 po q 6 hours prn spasm CARISOPRODOL 10599584708 No Longer Active Tu Landeros MD Active MECLIZINE HCL 25 MG ORAL TABLET CHEWABLE 1 four times a day as needed for dizziness MECLIZINE HCL 00924610320 No Longer Active Fab Morales DO Active ANGEL BREEZE 2 TEST IN VITRO DISK test tid prn GLUCOSE BLOOD 33491773993 No Longer Active Negra Scott RN Active REGLAN 10 MG ORAL TABLET 1 po TID PRN Nausea METOCLOPRAMIDE HCL 28270471768 No Longer Active Tu Landeros MD Active METFORMIN HCL 500 MG ORAL TABLET 1 PO BID METFORMIN HCL 46249512999 No Longer Active Tu Landeros MD Active AMBIEN 10 MG ORAL TABLET 1 tab by mouth at bedtime as needed for sleep 06/10 ZOLPIDEM TARTRATE 41976231951 No Longer Active Tu Landeros MD Active FLUOXETINE HCL 40 MG ORAL CAPSULE 1 po q day FLUOXETINE HCL 98328683964 No Longer Active Mayra [place] Active TRILIPIX 135 MG ORAL CAPSULE DELAYED RELEASE 1 po qd CHOLINE FENOFIBRATE 54475187485 No Longer Active Tu Landeros MD Active AMBIEN 10 MG ORAL TABLET 1 tab by mouth at bedtime as needed for sleep 06/10 AMBIEN 10 MG ORAL TABLET 523148 ZOLPIDEM TARTRATE Inactive METFORMIN HCL 500 MG ORAL TABLET 1 PO BID METFORMIN HCL 500 MG ORAL TABLET 797989 METFORMIN HCL Inactive REGLAN 10 MG ORAL TABLET 1 po TID PRN Nausea REGLAN 10 MG ORAL TABLET 106632 METOCLOPRAMIDE HCL Inactive MECLIZINE HCL 25 MG ORAL TABLET CHEWABLE 1 four times a day as needed for dizziness MECLIZINE HCL 25 MG ORAL TABLET CHEWABLE 179744 MECLIZINE HCL Inactive SOMA 350 MG ORAL TABLET 1 po q 6 hours prn spasm SOMA 350 MG ORAL TABLET 014951 CARISOPRODOL Inactive MELATONIN 5 MG ORAL TABLET Take one by mouth daily MELATONIN 5 MG ORAL TABLET 395160 MELATONIN Inactive MULTIVITAMINS TABS Take one by mouth daily MULTIVITAMINS TABS MULTIPLE VITAMIN Inactive LORTAB 5-500 MG ORAL TABLET 1/2 to 1 tablet by mouth every 4 hours as needed for pain LORTAB 5-500 MG ORAL TABLET HYDROCODONE- ACETAMINOPHEN Inactive XANAX 0.5 MG ORAL TABLET 1 tablet every 6 hrs prn XANAX 0.5 MG ORAL TABLET 388027 ALPRAZOLAM Inactive AUGMENTIN 875-125 MG ORAL TABLET 1 tab by mouth twice daily with food AUGMENTIN 875-125 MG ORAL TABLET 652558 AMOXICILLIN-POT CLAVULANATE Inactive ALPRAZOLAM 0.5 MG ORAL TABLET 1 tab every 6hrs as needed ALPRAZOLAM 0.5 MG ORAL TABLET 803768 ALPRAZOLAM Inactive SPIRONOLACTONE 25 MG ORAL TABLET 0.5 tablet by mouth daily 09/09 SPIRONOLACTONE 25 MG ORAL TABLET 559521 SPIRONOLACTONE Inactive ACCU-CHEK KEYONA PLUS w/Device KIT [...] times daily as needed ACCU-CHEK FASTCLIX LANCETS 63893480979 LANCETS Inactive TRAMADOL HCL 50 MG ORAL TABLET 1 tablets every 6 hours as needed for pain TRAMADOL HCL 50 MG ORAL TABLET 132377 TRAMADOL HCL Inactive VENLAFAXINE HCL 75 MG ORAL TABLET 1 po BID VENLAFAXINE HCL 75 MG ORAL TABLET 090789 VENLAFAXINE HCL Inactive HYDROCODONE-ACETAMINOPHEN 5-500 MG ORAL TABLET take one po Q 4-6 hours prn HYDROCODONE-ACETAMINOPHEN 5-500 MG ORAL TABLET 615914 HYDROCODONE-ACETAMINOPHEN Inactive LORTAB 5-500 MG ORAL TABLET 1/2 to 1 tablet by mouth every 4 hours as needed for pain LORTAB 5-500 MG ORAL TABLET HYDROCODONE- ACETAMINOPHEN Inactive LAMISIL 250 MG ORAL TABLET 1 po qd LAMISIL 250 MG ORAL TABLET 729068 TERBINAFINE HCL Inactive VENLAFAXINE HCL 37.5 MG ORAL TABLET 1 po BID VENLAFAXINE HCL 37.5 MG ORAL TABLET 352529 VENLAFAXINE HCL Inactive CIPRO 500 MG ORAL TABLET 1 tablet by mouth twice daily CIPRO 500 MG ORAL TABLET 450249 CIPROFLOXACIN HCL Inactive VENLAFAXINE HCL 75 MG ORAL TABLET 1 po BID VENLAFAXINE HCL 75 MG ORAL TABLET 055572 VENLAFAXINE HCL Inactive SIMVASTATIN 40 MG ORAL TABLET Take one by mouth daily SIMVASTATIN 40 MG ORAL TABLET 023118 SIMVASTATIN Inactive OMEPRAZOLE 20 MG ORAL TABLET DELAYED RELEASE 1 PO 30 MIN BEFORE 1ST MEAL 2010 OMEPRAZOLE 20 MG ORAL TABLET DELAYED RELEASE 419298 OMEPRAZOLE Inactive FENOFIBRATE 145 MG ORAL TABLET 1 po qd FENOFIBRATE 145 MG ORAL TABLET 766725 FENOFIBRATE Inactive BACTRIM DS 800-160 MG ORAL TABLET 1 bid x 14 day start 09-28-13 BACTRIM DS 800-160 MG ORAL TABLET 349871 SULFAMETHOXAZOLE- TRIMETHOPRIM Inactive B-12 100 MCG ORAL TABLET Take one by mouth daily B-12 100 MCG ORAL TABLET CYANOCOBALAMIN Inactive GABAPENTIN 100 MG ORAL CAPSULE 1 po bid GABAPENTIN 100 MG ORAL CAPSULE 497756 GABAPENTIN Inactive HYDROCODONE-ACETAMINOPHEN 5-325 MG ORAL TABLET 1 tab by mouth every 6 hours as needed for pain HYDROCODONE-ACETAMINOPHEN 5-325 MG ORAL TABLET 666287 HYDROCODONE-ACETAMINOPHEN Inactive CIPRO 500 MG ORAL TABLET 1 bid x 14 days start 09-28-13 CIPRO 500 MG ORAL TABLET 445452 CIPROFLOXACIN HCL Inactive ALIGN 4 MG ORAL [...] SODIUM 50 MG ORAL TABLET DELAYED RELEASE 236623 DICLOFENAC SODIUM Inactive PREDNISONE 20 MG ORAL TABLET 2 tablets once daily for 2 days, then 1 tablet once daily for 2 days PREDNISONE 20 MG ORAL TABLET 949568 PREDNISONE Inactive TRUEDRAW LANCING DEVICE Test twice a day dx 250.0 TRUEDRAW LANCING DEVICE LANCET DEVICES Inactive TRUERESULT BLOOD GLUCOSE w/Device KIT test blood sugar twice daily dx 250.00 TRUERESULT BLOOD GLUCOSE w/Device KIT BLOOD GLUCOSE MONITORING SUPPL Inactive FLONASE 50 MCG/ACT NASAL SUSPENSION 1 spray each nostril twice daily until bottle empty FLONASE 50 MCG/ACT NASAL SUSPENSION 9106239 FLUTICASONE PROPIONATE Inactive VENTOLIN HFA 108 (90 Base) MCG/ACT INHALATION AEROSOL SOLUTION 1-2 puffs every 4 hours if needed for cough/congestion VENTOLIN HFA 108 (90 Base) MCG/ACT INHALATION AEROSOL SOLUTION ALBUTEROL SULFATE Inactive REQUIP 2 MG ORAL TABLET Take one tablet at bedtime prn REQUIP 2 MG ORAL TABLET 092595 ROPINIROLE HCL Inactive SUPER B COMPLEX/VITAMIN C ORAL TABLET 1 qd SUPER B COMPLEX/VITAMIN C ORAL TABLET 98953940579 B COMPLEX-C Inactive TRUEDRAW LANCING DEVICE test blood sugar twice daily dx: 250.00 TRUEDRAW LANCING DEVICE LANCET DEVICES Inactive TRUETEST TEST IN VITRO STRIP test blood sugar twice daily. DX 250.0 TRUETEST TEST IN VITRO STRIP GLUCOSE BLOOD Inactive CYCLOBENZAPRINE HCL 10 MG ORAL TABLET 1 po TID PRN Muscle Spasm CYCLOBENZAPRINE HCL 10 MG ORAL TABLET 033720 CYCLOBENZAPRINE HCL Inactive DICLOFENAC SODIUM 50 MG ORAL TABLET DELAYED RELEASE 1 po BID PRN Pain DICLOFENAC SODIUM 50 MG ORAL TABLET DELAYED RELEASE 062382 DICLOFENAC SODIUM Inactive DICLOFENAC SODIUM 75 MG ORAL TABLET DELAYED RELEASE 1 po BID PRN Pain DICLOFENAC SODIUM 75 MG ORAL TABLET DELAYED RELEASE 881774 DICLOFENAC SODIUM Inactive TRIAMCINOLONE ACETONIDE 0.1 % EXTERNAL OINTMENT Apply to affected areas TID for up to 2 weeks TRIAMCINOLONE ACETONIDE 0.1 % EXTERNAL OINTMENT 0526149 TRIAMCINOLONE ACETONIDE Inactive PREDNISONE 20 MG ORAL TABLET 2 tabs daily for 3 days, 1 tab daily for 3 days, 1/2 tab daily for 2 days PREDNISONE 20 MG ORAL TABLET 139006 PREDNISONE Inactive PREDNISONE 20 MG ORAL TABLET 2 tabs daily for 3 days, 1 tab daily for 3 days, 1/2 tab daily for 2 days PREDNISONE 20 MG ORAL TABLET 809138 PREDNISONE Inactive BACTRIM DS 800-160 MG ORAL TABLET 1 po BID x 7 days BACTRIM DS 800-160 MG ORAL TABLET 697245 SULFAMETHOXAZOLE-TRIMETHOPRIM Inactive ZITHROMAX 250 MG ORAL TABLET 2 po today, then 1 po q days 2-5 ZITHROMAX 250 MG ORAL TABLET 718828 AZITHROMYCIN Inactive Advance Directives Directive Description Start Date DISCUSSED WITH PATIENT -- NO DECISION MADE Immunizations Vaccine Administration Date Value Standard Description Seasonal influenza vaccine, injectable, containing preservative, for > 3 years old (Afluria, FluLaval, Fluzone, Fluvirin, Fluarix, Agriflu(>=18 yo)) Fluzone (>3 yrs.) [[id number]] Influenza, seasonal, injectable influenza immunization (Flu Vax) has been administered 02/22/2012 influenza virus vaccine, unspecified formulation Seasonal influenza vaccine, injectable, containing preservative, for > 3 years old (Afluria, FluLaval, Fluzone, Fluvirin, Fluarix, Agriflu(>=18 yo)) Fluzone (>3 yrs.) [[id number]] Influenza, seasonal, injectable Vital Signs Date Name [...] ... - Chemistry sodium, serum 141 mmol/L 256-076 1340/01/16 carbon dioxide, venous blood 28.3 mmol/L 21.0-32.0 [...] 6.7 % 4.3-6.0 cholesterol, serum 106 mg/dL 829-769 7461/01/16 triglyceride, serum, fasting 173 mg/dL 30-200 HDL [...] A1c - Chemistry cholesterol, serum 135 mg/dL 502-650 1178/05/17 HDL cholesterol, serum 41 mg/dL > OR=46 triglyceride, serum, fasting 206 mg/dL <150 LDL cholesterol, serum 53 MG/DL (CALC) mg/dL <130 cholesterol/HDL ratio, serum 3.3 (calc) < OR=5.0 Lab Report: HGBA1C - Chemistry hemoglobin A1C, blood, as % of total hemoglobin 6.5 % 4.3-6.0 Encounters Code Encounter Date Provider Facility CPT-78683 Level 3 Est. Patient 10:13:19 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 Lesli Kellogg APRN [facility] CPT-48866 Level 4 Est. Patient 13:42:02 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 Tu Landeros MD [facility] CPT-88470 Level 3 Est. Patient 14:20:36 CDT Tu Landeros MD [facility] CPT-43101 Level 4 Est. Patient 14:28:34 CDT Tu Landeros MD [facility] CPT-71337 Level 3 Est. Patient 13:33:09 CDT Tu Landeros MD [facility] CPT-20719 Level 4 Est. Patient 14:29:21 CDT Tu Landeros MD [facility] CPT-95335 Level 4 Est. Patient 09:08:17 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 Tu Landeros MD [facility] CPT-10671 Level 4 Est. Patient 14:40:19 CDT Tu Landeros MD [facility] CPT-18083 Level 4 Est. Patient 14:06:04 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 Tu Landeros MD [facility] CPT-89991 Level 3 Est. Patient 14:05:18 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 Tu Landeros MD [facility] CPT-30337 Level 3 Est. Patient 10:06:54 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 Miranda Farah POULTRY PINNER [facility] CPT-29034 Level 4 Est. Patient 13:50:18 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 Tu Landeros MD [facility] CPT-26695 Level 3 Est. Patient 10:30:04 CDT Tu Landeros MD [facility] CPT-06249 Level 4 Est. Patient 11:03:38 CDT Tu Landeros MD [facility] CPT-22677 Level 3 Est. Patient 10:20:44 CDT Fab Morales DO [facility] CPT-15990 Level 4 Est. Patient 14:38:57 CDT Tu Landeros MD [facility] CPT-55988 Level 4 Est. Patient 14:27:39 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 Tu Landeros MD [facility] CPT-35221 Level 4 Est. Patient 09:45:25 CDT Tu Landeros MD [facility] CPT-28425 Level 4 Est. Patient 09:05:20 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 Tu Landeros MD [facility] CPT-01501 Level 4 Est. Patient 14:09:06 CDT Tu Landeros MD [facility] CPT-53991 Level 3 Est. Patient 13:36:54 CDT Tu Landeros MD [facility] CPT-87104 Level 3 Est. Patient 08:59:14 CDT Tu Landeros MD [facility] CPT-25454 Level 3 Est. Patient 13:48:35 CDT Fab Morales DO [facility] CPT-52567 Level 4 Est. Patient 10:05:48 CDT Tu Landeros MD [facility] CPT-83383 Level 3 Est. Patient 13:38:42 CDT Marek BANKS [facility] CPT-87764 Level 5 Est. Patient 08:08:39 CDT Jerrica FRANCIS [facility] CPT-32110 Level 4 Est. Patient 14:23:38 CDT Tu Landeros MD [facility] CPT-64394 Level 3 Est. Patient 11:44:04 CDT Tu Landeros MD [facility] CPT-13927 Level 3 Est. Patient 11:03:20 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 Tu Landeros MD [facility] CPT-06848 Level 3 Est. Patient 11:03:14 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 Tu Landeros MD [facility] CPT-15504 Level 3 Est. Patient 12:42:49 CDT Tu Landeros MD [facility] CPT-67965 Level 3 Est. Patient 11:52:06 CDT Tu Landeros MD [facility] CPT-77890 Level 3 Est. Patient 13:58:11 CDT Tu Landeros MD [facility] CPT-22991 Level 3 Est. Patient 17:50:07 CDT Fab Morales DO [facility] CPT-33703 Level 3 Est. Patient 12:06:29 CDT Elvira Cervantes MD PhD [facility] CPT-10170 Level 3 Est. Patient 15:50:32 CDT Tu Landeros MD [facility] CPT-66242 Level 4 Est. Patient 16:08:29 CDT Tu Landeros MD [facility] CPT-57697 Level 3 Est. Patient 16:04:19 CDT Tu Landeros MD [facility] CPT-93317 Level 3 Est. Patient 11:22:30 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 Tu Landeros MD [facility] CPT-19561 Level 4 Est. Patient 16:24:02 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 Tu Landeros MD [facility] CPT-97568 Level 3 Est. Patient 17:21:23 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 Tu Landeros MD [facility] Procedures Code Procedure Name Date Entry Date Standard Description CPT-27771 Shoulder, right, comp min 2V - XRAY USE ONLY 13:50:22 CDT CPT-G0009 Administration of Pneumococcal Vaccine 15:08:26 CDT CPT-34740 Prevnar 13 Intramuscular Suspension 15:08:26 CDT 10/08 CPT-G0439 Subsequent Annual Wellness Exam 14:29:22 CDT CPT-10167 Venipuncture Draw Fee 13:15:35 CDT CPT-75047 Magnesium - LAB USE ONLY 11:14:20 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 CPT-68576 Lipid - LAB USE ONLY 11:14:20 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 CPT-72837 HGBA1C - LAB USE ONLY 11:14:20 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 CPT-10294 CMP - LAB USE ONLY 11:14:19 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 CPT-86442 CBC - LAB USE ONLY 11:14:19 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 CPT-05297 Venipuncture Draw Fee 11:14:18 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 CPT-88351 First Vx - Ix admin for Medicare patients 16:46:52 CDT CPT-38245 Fluzone Preservative Free Intramuscular Suspension 16:46 :51 CDT CPT-45726 CBC - LAB USE ONLY 17:14:46 CDT CPT-96131 HGBA1C - LAB USE ONLY 17:14:46 CDT CPT-75047 Venipuncture Draw Fee 17:14:46 CDT CPT-G0438 Initial Annual Wellness Exam 14:13:04 CDT CPT-41065 Breathing Tx 10:06:54 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 CPT-11371 Postop F/U Visit 10:02:45 CDT CPT-LR Lesion Removal 09:02:56 CDT CPT-JTINJ Asp/Joint Injection 15:51:27 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 CPT-OV Office Visit 15:52:02 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 CPT-OV Office Visit 15:45:11 CDT CPT-000 Give Zostavax 14:09:06 CDT CPT-86922 Administration single or combination vaccine inc oral 15 :19:04 CDT CPT-47984 Zoster Vaccine (Zostavax) 15:19:04 CDT CPT-08177 Administration single or combination vaccine inc oral 20 :51:03 CDT CPT-59118 Influenza split virus > age 3 20:51:03 CDT CPT-91779 No Charge Offi Visit 14:52:03 CDT CPT-OV Office Visit 14:57:43 CDT CPT-OV Office Visit 15:22:32 CDT CPT-35399 Administration single or combination vaccine inc oral 11 :33:15 CDT CPT-97232 Influenza split virus > age 3 11:33:15 CDT
--- OUTSIDE RECORDS SUMMARY | 2018-04-25 16:32 | XMS REPORT | Clinical Summary ---
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 Tsesa Landeros MD ONYCHOMYCOSIS ICD-110.1 Tessa Landeros MD [...] MG TABS 1 po BID VENLAFAXINE HCL 41950049933 Active Tu Landeros MD Active GABAPENTIN 100 MG CAPS 1 po BID GABAPENTIN 78891297006 Active José Luis Becerra MD Active REQUIP 2 MG TABS Take one tablet at bedtime prn ROPINIROLE HCL 45437900693 No Longer Active Tu Landeros MD Active VENTOLIN HFA 108 (90 BASE) MCG/ACT AERS 1-2 puffs every 4 hours if needed for cough/congestion ALBUTEROL SULFATE 76489817940 No Longer Active Ambika Aden APRN Active ZITHROMAX 250 MG TAB 2 po today, then 1 po q days 2-5 AZITHROMYCIN 12950395827 No Longer Active Miranda Suresh APRN Active METFORMIN HCL 1000 MG TABS 1 tablet by mouth twice daily METFORMIN HCL 87613862566 Active Tu Landeros MD Active FLONASE 50 MCG/ACT SUSP 1 spray each nostril twice daily until bottle empty FLUTICASONE PROPIONATE 42664654753 No Longer Active Tu Landeros MD Active COLACE 100 MG CAP 1 po BID PRN Constipation DOCUSATE SODIUM 89516669881 Active Tu Landeros MD Active SIMVASTATIN 40 MG TABS 0.5 tab daily at bedtime SIMVASTATIN 71067627472 Active Tu Landeros MD Active TRUERESULT BLOOD GLUCOSE W/DEVICE KIT test blood sugar twice daily dx 250.00 BLOOD GLUCOSE MONITORING SUPPL 83329840019 No Longer Active Tu Landeros MD Active TRUEDRAW LANCING DEVICE MISC Test twice a day dx 250.0 LANCET DEVICES 97429266007 No Longer Active Tu Landeros MD Active PREDNISONE 20 MG TAB 2 tablets once daily for 2 days, then 1 tablet once daily for 2 days PREDNISONE 07610321941 No Longer Active Tu Landeros MD Active DICLOFENAC SODIUM 50 MG TBEC 1 tablet by mouth three times a day as needed DICLOFENAC SODIUM 12073009911 No Longer Active Fab Morales DO Active TRUEDRAW LANCING DEVICE MISC test blood sugar twice daily dx: 250.00 LANCET DEVICES 16135244029 Active Tu Landeros MD Active TRUETEST TEST INVITR STRP test blood sugar twice daily. DX 250.0 GLUCOSE BLOOD 87468345513 Active Tu Landeros MD Active EMBRACE BLOOD GLUCOSE TEST STRP test blood sugar twice daily DX 250.0 2014 GLUCOSE BLOOD 22253112413 No Longer Active Tu Landeros MD Active TRUETEST TEST STRP test blood sugar three times daily dx: 250.00 GLUCOSE BLOOD 81766842537 No Longer Active Suze Corey VOGEL Active TRUERESULT BLOOD GLUCOSE W/DEVICE KIT use to test blood sugar tid dx: 250.00 BLOOD GLUCOSE MONITORING SUPPL 58865097452 No Longer Active Suze Corey RMA Active ALIGN 4 MG CAPS 1 tid PROBIOTIC PRODUCT 27519008716 No Longer Active Shaun Sy MD Active CIPRO 500 MG TABS 1 bid x 14 days start 09-28-13 CIPROFLOXACIN HCL 14953107502 No Longer Active Shaun Sy MD Active TRAMADOL HCL 50 MG TABS 1-2 tablets every 6 hours as needed for pain TRAMADOL HCL 65061476258 Active José Luis Becerra MD Active HYDROCODONE-ACETAMINOPHEN 5-325 MG TABS 1 tab by mouth every 6 hours as needed for pain HYDROCODONE-ACETAMINOPHEN 57334612678 No Longer Active Tu Landeros MD Active OMEPRAZOLE 20 MG CPDR 1 po q a.m. OMEPRAZOLE 66908297432 Active Tu Landeros MD Active GABAPENTIN 100 MG CAPS 1 po bid GABAPENTIN 14843018671 No Longer Active Tu Landeros MD Active B-12 100 MCG TABS Take one by mouth daily CYANOCOBALAMIN 64492283195 No Longer Active Tu Landeros MD Active BACTRIM DS 800-160 MG TABS 1 bid x 14 day start 09-28-13 SULFAMETHOXAZOLE-TRIMETHOPRIM 13846321593 No Longer Active Tu Landeros MD Active CARVEDILOL 12.5 MG TABS 1 po BID CARVEDILOL 34770395480 Active Tu Landeros MD Active SUPER B COMPLEX/VITAMIN C TABS 1 qd B COMPLEX-C 41801407293 Active JASPREET Perez Active TRILIPIX 135 MG CPDR 1 q hs CHOLINE FENOFIBRATE 21526855645 Active Tu Landeros MD Active FENOFIBRATE 145 MG TABS 1 po qd FENOFIBRATE 82807704676 No Longer Active JASPREET Perez Active OMEPRAZOLE 20 MG TBEC 1 PO 30 MIN BEFORE 1ST MEAL OMEPRAZOLE 28163999742 No Longer Active JASPREET Perez Active SIMVASTATIN 40 MG TABS Take one by mouth daily SIMVASTATIN 16437339215 No Longer Active JASPREET Perez Active VENLAFAXINE HCL 75 MG TABS 1 po BID VENLAFAXINE HCL 79029711961 No Longer Active [place] Norma, RMA Active CIPRO 500 MG TAB 1 tablet by mouth twice daily CIPROFLOXACIN HCL 76955484871 No Longer Active Tu Landeros MD Active VENLAFAXINE HCL 37.5 MG TABS 1 po BID VENLAFAXINE HCL 73218091496 No Longer Active Suze Nicole RMA Active LAMISIL 250 MG TAB 1 po qd TERBINAFINE HCL 67432100740 No Longer Active Tu Landeros MD Active LORTAB 5 5-500 MG TABS 1/2 to 1 tablet by mouth every 4 hours as needed for pain HYDROCODONE-ACETAMINOPHEN 13285829894 No Longer Active Tu Landeros MD Active ENALAPRIL MALEATE 20 MG TABS 1.5 po qd ENALAPRIL MALEATE 98520350778 Active Tu Landeros MD Active HYDROCODONE-ACETAMINOPHEN 5-500 MG TABS take one po Q 4-6 hours prn HYDROCODONE-ACETAMINOPHEN 12734425191 No Longer Active Tu Landeros MD Active BACTRIM DS 800-160 MG TABS 1 po BID x 7 days SULFAMETHOXAZOLE-TRIMETHOPRIM 52631686415 No Longer Active Tu Landeros MD Active VENLAFAXINE HCL 75 MG TABS 1 po BID VENLAFAXINE HCL 99962535162 No Longer Active Elvira Cervantes MD PhD Active TRAMADOL HCL 50 MG TABS 1 tablets every 6 hours as needed for pain TRAMADOL HCL 11967349098 No Longer Active Tu Landeros MD Active ACCU-CHEK FASTCLIX LANCETS MISC Use to check bloodsugar three times daily as needed LANCETS 67090217023 No Longer Active Tu Landeros MD Active ACCU-CHEK KEYONA PLUS STRP Use for testing bloodsugars three times daily as needed GLUCOSE BLOOD 45903033487 No Longer Active Tu Landeros MD Active ACCU-CHEK KEYONA PLUS W/DEVICE KIT Use for testing bloodsugars three times daily as needed BLOOD GLUCOSE MONITORING SUPPL 34057442321 No Longer Active Tu Landeros MD Active SPIRONOLACTONE 25 MG TAB 0.5 tablet by mouth daily SPIRONOLACTONE 84219450782 No Longer Active Tu Landeros MD Active ALPRAZOLAM 0.5 MG TABS 1 tab every 6hrs as needed ALPRAZOLAM 88936806388 No Longer Active Tu Landeros MD Active AUGMENTIN 875-125 MG TAB 1 tab by mouth twice daily with food AMOXICILLIN-POT CLAVULANATE 11373629727 No Longer Active Tu Landeros MD Active PREDNISONE 20 MG TAB 2 tabs daily for 3 days, 1 tab daily for 3 days, 1/2 tab daily for 2 days PREDNISONE 80610745627 No Longer Active Tu Landeros MD Active XANAX 0.5 MG TABS 1 tablet every 6 hrs prn ALPRAZOLAM 57612682900 No Longer Active Tu Landeros MD Active PREDNISONE 20 MG TAB 2 tabs daily for 3 days, 1 tab daily for 3 days, 1/2 tab daily for 2 days PREDNISONE 09027256451 No Longer Active Tu Landeros MD Active TRIAMCINOLONE ACETONIDE 0.1 % OINT Apply to affected areas TID for up to 2 weeks TRIAMCINOLONE ACETONIDE 78359366548 No Longer Active Tu Landeros MD Active LORTAB 5 5-500 MG TABS 1/2 to 1 tablet by mouth every 4 hours as needed for pain HYDROCODONE-ACETAMINOPHEN 95340753229 No Longer Active Tu Landeros MD Active MULTIVITAMINS TABS Take one by mouth daily MULTIPLE VITAMIN 17623974071 No Longer Active Tu Landeros MD Active MELATONIN 5 MG TABS Take one by mouth daily MELATONIN 76686142048 No Longer Active Tu Landeros MD Active SOMA 350 MG TAB 1 po q 6 hours prn spasm CARISOPRODOL 78858859057 No Longer Active Tu Landeros MD Active MECLIZINE HCL 25 MG CHEW TAB 1 four times a day as needed for dizziness 08/05 MECLIZINE HCL 20754527956 No Longer Active Fab Morales DO Active ANGEL BREEZE 2 TEST DISK test tid prn GLUCOSE BLOOD 74632498932 No Longer Active Negra Scott RN Active REGLAN 10 MG TAB 1 po TID PRN [place]ausea METOCLOPRAMIDE HCL 04149391378 No Longer Active Tu Landeros MD Active METFORMIN HCL 500 MG TABS 1 PO BID METFORMIN HCL 81159945514 No Longer Active Tu Landeros MD Active AMBIEN 10 MG TAB 1 tab by mouth at bedtime as needed for sleep ZOLPIDEM TARTRATE 93176865632 No Longer Active Tu Landeros MD Active FLUOXETINE HCL 40 MG CAPS 1 po q day FLUOXETINE HCL 49186334776 No Longer Active Mayra Gouverneur Active FISH OIL 1000 MG CAPS Take one by mouth daily OMEGA-3 FATTY ACIDS 33178640322 Active Tu Landeros MD Active GLUCOSAMINE 500 MG TABS Take 2 tab po qd GLUCOSAMINE 42300861772 Active Tu Landeros MD Active TRILIPIX 135 MG CPDR 1 po qd CHOLINE FENOFIBRATE 83192459010 No Longer Active Tu Landeros MD Active ASPIRIN 81 MG CHEW TAB 1 tablet by mouth daily ASPIRIN 97011635858 Active Tu Landeros MD Active FUROSEMIDE 40 MG TAB 1 tablet by mouth daily FUROSEMIDE 56087785165 Active Tu Landeros MD Active KLOR-CON 10 10 MEQ CR-TABS TAKE 2 TABS DAILY POTASSIUM CHLORIDE 28539271474 Active Tu Landeros MD Active AMBIEN 10 MG TAB 1 tab by mouth at bedtime as needed for sleep AMBIEN 10 MG TAB 774156 ZOLPIDEM TARTRATE Inactive METFORMIN HCL 500 MG TABS 1 PO BID METFORMIN HCL 500 MG TABS 715271 METFORMIN HCL Inactive REGLAN 10 MG TAB 1 po TID PRN Nausea REGLAN 10 MG TAB 236359 METOCLOPRAMIDE HCL Inactive MECLIZINE HCL 25 MG CHEW TAB 1 four times a day as needed for dizziness 08/05 MECLIZINE HCL 25 MG CHEW TAB 703645 MECLIZINE HCL Inactive SOMA 350 MG TAB 1 po q 6 hours prn spasm SOMA 350 MG TAB 795496 CARISOPRODOL Inactive MELATONIN 5 MG TABS Take one by mouth daily MELATONIN 5 MG TABS 106738 MELATONIN Inactive MULTIVITAMINS TABS Take one by mouth daily MULTIVITAMINS TABS MULTIPLE VITAMIN Inactive LORTAB 5 5-500 MG TABS 1/2 to 1 tablet by mouth every 4 hours as needed for pain LORTAB 5 5-500 MG TABS HYDROCODONE- ACETAMINOPHEN Inactive XANAX 0.5 MG TABS 1 tablet every 6 hrs prn XANAX 0.5 MG TABS 238279 ALPRAZOLAM Inactive AUGMENTIN 875-125 MG TAB 1 tab by mouth twice daily with food AUGMENTIN 875-125 MG TAB 137081 AMOXICILLIN-POT CLAVULANATE Inactive ALPRAZOLAM 0.5 MG TABS 1 tab every 6hrs as needed ALPRAZOLAM 0.5 MG TABS 735989 ALPRAZOLAM Inactive SPIRONOLACTONE 25 MG TAB 0.5 tablet by mouth daily SPIRONOLACTONE 25 MG TAB 617225 SPIRONOLACTONE Inactive ACCU-CHEK KEYONA PLUS W/DEVICE KIT Use for testing bloodsugars three times daily as needed ACCU-CHEK KEYONA PLUS W/DEVICE KIT BLOOD GLUCOSE MONITORING SUPPL Inactive ACCU-CHEK KEYONA PLUS STRP Use for testing bloodsugars three times daily as needed ACCU-CHEK KEYONA PLUS STRP GLUCOSE BLOOD Inactive ACCU-CHEK FASTCLIX LANCETS MISC Use to check bloodsugar three times daily as needed ACCU-CHEK FASTCLIX LANCETS MISC 02143774570 [facility] Inactive TRAMADOL HCL 50 MG TABS 1 tablets every 6 hours as needed for pain TRAMADOL HCL 50 MG TABS 197511 TRAMADOL HCL Inactive VENLAFAXINE HCL 75 MG TABS 1 po BID VENLAFAXINE HCL 75 MG TABS 478882 VENLAFAXINE HCL Inactive HYDROCODONE-ACETAMINOPHEN 5-500 MG TABS take one po Q 4-6 hours prn HYDROCODONE-ACETAMINOPHEN 5-500 MG TABS HYDROCODONE- ACETAMINOPHEN Inactive LORTAB 5 5-500 MG TABS 1/2 to 1 tablet by mouth every 4 hours as needed for pain LORTAB 5 5-500 MG TABS HYDROCODONE- ACETAMINOPHEN Inactive LAMISIL 250 MG TAB 1 po qd LAMISIL 250 MG TAB 542527 TERBINAFINE HCL Inactive VENLAFAXINE HCL 37.5 MG TABS 1 po BID VENLAFAXINE HCL 37.5 MG TABS 919366 VENLAFAXINE HCL Inactive CIPRO 500 MG TAB 1 tablet by mouth twice daily CIPRO 500 MG TAB 227503 CIPROFLOXACIN HCL Inactive VENLAFAXINE HCL 75 MG TABS 1 po BID VENLAFAXINE HCL 75 MG TABS 823327 VENLAFAXINE HCL Inactive SIMVASTATIN 40 MG TABS Take one by mouth daily SIMVASTATIN 40 MG TABS 268034 SIMVASTATIN Inactive OMEPRAZOLE 20 MG TBEC 1 PO 30 MIN BEFORE 1ST MEAL OMEPRAZOLE 20 MG TBEC 891830 OMEPRAZOLE Inactive FENOFIBRATE 145 MG TABS 1 po qd FENOFIBRATE 145 MG TABS 334139 FENOFIBRATE Inactive BACTRIM DS 800-160 MG TABS 1 bid x 14 day start 09-28-13 BACTRIM DS 800-160 MG TABS 444575 SULFAMETHOXAZOLE-TRIMETHOPRIM Inactive B-12 100 MCG TABS Take one by mouth daily B-12 100 MCG TABS CYANOCOBALAMIN Inactive GABAPENTIN 100 MG CAPS 1 po bid GABAPENTIN 100 MG CAPS 763817 GABAPENTIN Inactive HYDROCODONE-ACETAMINOPHEN 5-325 MG TABS 1 tab by mouth every 6 hours as needed for pain HYDROCODONE-ACETAMINOPHEN 5-325 MG TABS 267354 HYDROCODONE-ACETAMINOPHEN Inactive CIPRO 500 MG TABS 1 bid x 14 days start 09-28-13 CIPRO 500 MG TABS 405652 CIPROFLOXACIN HCL Inactive ALIGN 4 MG CAPS [...] as needed DICLOFENAC SODIUM 50 MG TBEC 576310 DICLOFENAC SODIUM Inactive PREDNISONE 20 MG TAB 2 tablets once daily for 2 days, then 1 tablet once daily for 2 days PREDNISONE 20 MG TAB 685803 PREDNISONE Inactive TRUEDRAW LANCING DEVICE MISC Test [...] at bedtime prn REQUIP 2 MG TABS 771016 ROPINIROLE HCL Inactive TRIAMCINOLONE ACETONIDE 0.1 % OINT Apply to affected areas TID for up to 2 weeks TRIAMCINOLONE ACETONIDE 0.1 % OINT 6234519 TRIAMCINOLONE ACETONIDE Inactive PREDNISONE 20 MG TAB 2 tabs daily for 3 days, 1 tab daily for 3 days, 1/2 tab daily for 2 days PREDNISONE 20 MG TAB 757864 PREDNISONE Inactive PREDNISONE 20 MG TAB 2 tabs daily for 3 days, 1 tab daily for 3 days, 1/2 tab daily for 2 days PREDNISONE 20 MG TAB 691960 PREDNISONE Inactive BACTRIM DS 800-160 MG TABS 1 po BID x 7 days BACTRIM DS 800-160 MG TABS 605048 SULFAMETHOXAZOLE-TRIMETHOPRIM Inactive ZITHROMAX 250 MG TAB 2 po today, then 1 po q days 2-5 ZITHROMAX 250 MG TAB 5864561 AZITHROMYCIN Inactive Advance Directives Directive Description Start Date DISCUSSED WITH PATIENT -- NO DECISION MADE Immunizations Vaccine Administration Date Value Standard Description Seasonal influenza vaccine, injectable, containing preservative, for > 3 years old (Afluria, FluLaval, Fluzone, Fluvirin, Fluarix, Agriflu(>=18 yo)) Fluzone (>3 yrs.) [WQP683] Influenza, seasonal, injectable influenza immunization (Flu Vax) has been administered 02/22/2012 influenza virus vaccine, unspecified formulation Seasonal influenza vaccine, injectable, containing preservative, for > 3 years old (Afluria, FluLaval, Fluzone, Fluvirin, Fluarix, Agriflu(>=18 yo)) Fluzone (>3 yrs.) [[id number]] Influenza, seasonal, injectable Vital Signs Date Name [...] 7.4 % 4.3-6.0 sodium, serum 140 mmol/L 119-704 3718/09/07 potassium, serum 4.3 mmol/L 3.5-5.2 chloride, serum 104 mmol/L 98-107 carbon dioxide, venous blood 27.7 mmol/L 21.0-32.0 blood glucose 156 mg/dL 65-110 calcium, serum 9.3 mg/dL 8.5-10.1 urea nitrogen, blood 23 mg/dL 7-18 creatinine, serum 1.21 mg/dL 0.55-1.30 Lab Report: Lipid Panel, Comp. Metabolic Panel - Chemistry cholesterol, serum 124 mg/dL 259-463 5967/01/12 triglyceride, serum, fasting 135 mg/dL 30-200 HDL cholesterol, serum 41 mg/dL 32-96 LDL cholesterol, serum 56 mg/dL 0-130 sodium, serum 140 mmol/L 133-740 6681/01/12 carbon dioxide, venous blood 27.7 mmol/L 21.0-32.0 potassium, serum 4.5 mmol/L 3.5-5.2 chloride, serum 104 mmol/L 98-107 blood glucose 139 mg/dL 65-110 urea nitrogen, blood 16 mg/dL 7-18 alanine aminotransferase (SGPT), serum 32 U/L 12-78 aspartate aminotransferase (SGOT), serum 25 U/L 15-37 calcium, serum 9.1 mg/dL 8.5-10.1 bilirubin, serum, total 0.50 mg/dL 0.00-1.00 Encounters Code Encounter Date Provider Facility CPT-89672 Level 4 Est. Patient 14:40:19 CDT Tu Landeros MD [facility] CPT-74860 Level 4 Est. Patient 14:06:04 RELOCATION SERVICES SPECIALIST Tu Landeros MD [facility] CPT-94011 Level 3 Est. Patient 14:05:18 RELOCATION SERVICES SPECIALIST Tu Landeros MD [facility] CPT-80564 Level 3 Est. Patient 10:06:54 RELOCATION SERVICES SPECIALIST [facility] Level 4 Est. Patient 13:50:18 RELOCATION SERVICES SPECIALIST Tu Landeros MD [facility] CPT-22433 Level 3 Est. Patient 10:30:04 CDT Tu Landeros MD [facility] CPT-98838 Level 4 Est. Patient 11:03:38 CDT Tu Landeros MD [facility] CPT-67999 Level 3 Est. Patient 10:20:44 CDT Fab Morales DO [facility] CPT-99944 Level 4 Est. Patient 14:38:57 CDT Tu Landeros MD [facility] CPT-69087 Level 4 Est. Patient 14:27:39 RELOCATION SERVICES SPECIALIST Tu Landeros MD [facility] CPT-90312 Level 4 Est. Patient 09:45:25 CDT Tu Landeros MD [facility] CPT-61397 Level 4 Est. Patient 09:05:20 RELOCATION SERVICES SPECIALIST Tu Landeros MD [facility] CPT-97291 Level 4 Est. Patient 14:09:06 CDT Tu Landeros MD [facility] CPT-57140 Level 3 Est. Patient 13:36:54 CDT Tu Landeros MD [facility] CPT-08650 Level 3 Est. Patient 08:59:14 CDT Tu Landeros MD [facility] CPT-91171 Level 3 Est. Patient 13:48:35 CDT Fab Morales DO [facility] CPT-03397 Level 4 Est. Patient 10:05:48 CDT Tu Landeros MD [facility] CPT-44927 Level 3 Est. Patient 13:38:42 CDT Marek BANKS [facility] CPT-20697 Level 5 Est. Patient 08:08:39 CDT Jerrica FRANCIS [facility] CPT-76559 Level 4 Est. Patient 14:23:38 CDT Tu Landeros MD [facility] CPT-17800 Level 3 Est. Patient 11:44:04 CDT Tu Landeros MD [facility] CPT-13311 Level 3 Est. Patient 11:03:20 RELOCATION SERVICES SPECIALIST Tu Landeros MD [facility] CPT-45140 Level 3 Est. Patient 11:03:14 RELOCATION SERVICES SPECIALIST Tu Landeros MD [facility] CPT-20821 Level 3 Est. Patient 12:42:49 CDT Tu Landeros MD [facility] CPT-67807 Level 3 Est. Patient 11:52:06 CDT Tu Landeros MD [facility] CPT-22316 Level 3 Est. Patient 13:58:11 CDT Tu Landeros MD [facility] CPT-85384 Level 3 Est. Patient 17:50:07 CDT Fab Morales DO [facility] CPT-06462 Level 3 Est. Patient 12:06:29 CDT Elvira Cervantes MD PhD [facility] CPT-53994 Level 3 Est. Patient 15:50:32 CDT Tu Landeros MD [facility] CPT-58245 Level 4 Est. Patient 16:08:29 CDT Tu Landeros MD [facility] CPT-69129 Level 3 Est. Patient 16:04:19 CDT Tu Landeros MD [facility] CPT-96040 Level 3 Est. Patient 11:22:30 RELOCATION SERVICES SPECIALIST Tu Landeros MD [facility] CPT-75399 Level 4 Est. Patient 16:24:02 RELOCATION SERVICES SPECIALIST Tu Landeros MD [facility] CPT-23063 Level 3 Est. Patient 17:21:23 RELOCATION SERVICES SPECIALIST Tu Landeros MD [facility] Procedures Code Procedure Name Date Entry Date Standard Description CPT-74758 First Vx - Ix admin for Medicare patients 16:46:52 CDT CPT-53315 Fluzone Preservative Free Intramuscular Suspension 16:46 :51 CDT CPT-83686 CBC - LAB USE ONLY 17:14:46 CDT CPT-62162 HGBA1C - LAB USE ONLY 17:14:46 CDT CPT-81721 Venipuncture Draw Fee 17:14:46 CDT CPT-G0438 Initial Annual Wellness Exam 14:13:04 CDT CPT-62719 Breathing Tx 10:06:54 RELOCATION SERVICES SPECIALIST CPT-21456 Postop F/U Visit 10:02:45 CDT CPT-LR Lesion Removal 09:02:56 CDT CPT-JTINJ Asp/Joint Injection 15:51:27 RELOCATION SERVICES SPECIALIST CPT-OV Office Visit 15:52:02 RELOCATION SERVICES SPECIALIST CPT-OV Office Visit 15:45:11 CDT CPT-000 Give Zostavax 14:09:06 CDT CPT-60506 Administration single or combination vaccine inc oral 15 :19:04 CDT CPT-33671 Zoster Vaccine (Zostavax) 15:19:04 CDT CPT-38735 Administration single or combination vaccine inc oral 20 :51:03 CDT CPT-29937 Influenza split virus > age 3 20:51:03 CDT CPT-94510 No Charge Offi Visit 14:52:03 CDT CPT-OV Office Visit 14:57:43 CDT CPT-OV Office Visit 15:22:32 CDT CPT-06160 Administration single or combination vaccine inc oral 11 :33:15 CDT CPT-48765 Influenza split virus > age 3 11:33:15 CDT
--- OUTSIDE RECORDS SUMMARY | 2018-04-25 16:33 | XMS REPORT | Clinical Summary ---
Author Author Admin, SACHI Organization [place] Address Unknown Phone Unavailable Allergies, Adverse Reactions, Alerts Allergy Name Reaction Description Start Date Severity Status Provider DANIELLE migraine h/a Critical Active Luisa HU migraine h/a Moderate No Longer Active Tu Landeros MD TRICOR rash, trouble breathing Critical Active Tu Landeros MD SULINDAC Critical Active Tu Landeros MD DOXYCYCLINE Critical Active Tu Landeros MD KEFLEX Critical Active uT Landeros MD Conditions or Problems Problem Name [...] 1 po BID PRN Pain DICLOFENAC SODIUM 58518010506 Active Tu Landeros MD Active GABAPENTIN 100 MG CAPS 1 po TID GABAPENTIN 68183743585 Active Tu Landeros MD Active DICLOFENAC SODIUM 50 MG ORAL TBEC 1 po BID PRN Pain DICLOFENAC SODIUM 66083021836 No Longer Active Tu Landeros MD Active CYCLOBENZAPRINE HCL 10 MG ORAL TABS 1 po TID PRN Muscle Spasm CYCLOBENZAPRINE HCL 66537622765 No Longer Active Tu Landeros MD Active INVOKANA 100 MG ORAL TABS 1 po qd CANAGLIFLOZIN 29117240437 Active Tu Landeros MD Active GLIPIZIDE 5 MG ORAL TABS 1 po qd GLIPIZIDE 58187855351 No Longer Active Tu Landeros MD Active VENLAFAXINE HCL 75 MG ORAL TABS 1 po BID VENLAFAXINE HCL 75149809315 Active Tu Landeros MD Active GLIMEPIRIDE 1 MG ORAL TABS 1 po qd GLIMEPIRIDE 82827256681 No Longer Active Tu Landeros MD Active TRUE METRIX BLOOD GLUCOSE TEST INVITR STRP Test blood sugar BID Dx: E11.9 GLUCOSE BLOOD 39977480158 Active Tu Landeros MD Active TRUE METRIX AIR GLUCOSE METER W/DEVICE KIT Test blood glucose BID Dx: E11.9 BLOOD GLUCOSE MONITORING SUPPL 41705651899 Active Tu Landeros MD Active TRUETEST TEST INVITR STRP test blood sugar twice daily. DX 250.0 GLUCOSE BLOOD 72556610088 No Longer Active Mirna Stanley LPN Active TRUEDRAW LANCING DEVICE MISC test blood sugar twice daily dx: 250.00 LANCET DEVICES 06520340395 No Longer Active Mirna Stanley LPN Active ENALAPRIL MALEATE 20 MG TABS 2 po qd ENALAPRIL MALEATE 22949046049 Active Tu Landeros MD Active SUPER B COMPLEX/VITAMIN C TABS 1 qd B COMPLEX-C 36088885901 No Longer Active Tu Landeros MD Active ASPIRIN EC 81 MG ORAL TBEC 1 po qd ASPIRIN 43831778388 Active Tu Landeros MD Active GLUCOSAMINE 500 MG TABS 2 po qd GLUCOSAMINE Active uT Landeros MD Active SIMVASTATIN 40 MG TABS 0.5 po qHS SIMVASTATIN 25627483107 Active Tu Landeros MD Active FISH OIL 1000 MG CAPS 1 po qd OMEGA-3 FATTY ACIDS 31853580972 Active Tu Landeros MD Active METFORMIN HCL 1000 MG TABS 1 po BID METFORMIN HCL 90898838376 Active Tu Landeros MD Active KLOR-CON 10 10 MEQ CR-TABS 2 po qd POTASSIUM CHLORIDE 99662900045 Active Tu Landeros MD Active FUROSEMIDE 40 MG TAB 1 po qd FUROSEMIDE 48635731239 Active Tu Landeros MD Active REQUIP 2 MG ORAL TABS 1 po qHS PRN Restless legs ROPINIROLE HCL 30566833581 Active Tu Landeros MD Active REQUIP 2 MG TABS Take one tablet at bedtime prn ROPINIROLE HCL 79070379659 No Longer Active Tu Landeros MD Active VENTOLIN HFA 108 (90 BASE) MCG/ACT AERS 1-2 puffs every 4 hours if needed for cough/congestion ALBUTEROL SULFATE 58423406920 No Longer Active Ambika Aden APRN Active ZITHROMAX 250 MG TAB 2 po today, then 1 po q days 2-5 AZITHROMYCIN 19051899263 No Longer Active Miranda Suresh APRN Active FLONASE 50 MCG/ACT SUSP 1 spray each nostril twice daily until bottle empty FLUTICASONE PROPIONATE 25494502066 No Longer Active Tu Landeros MD Active COLACE 100 MG CAP 1 po BID PRN Constipation DOCUSATE SODIUM 28549397928 Active Tu Landeros MD Active TRUERESULT BLOOD GLUCOSE W/DEVICE KIT test blood sugar twice daily dx 250.00 BLOOD GLUCOSE MONITORING SUPPL 72906910004 No Longer Active Tu Landeros MD Active TRUEDRAW LANCING DEVICE MISC Test twice a day dx 250.0 LANCET DEVICES 40732035553 No Longer Active Tu Landeros MD Active PREDNISONE 20 MG TAB 2 tablets once daily for 2 days, then 1 tablet once daily for 2 days PREDNISONE 00633925697 No Longer Active Tu Landeros MD Active DICLOFENAC SODIUM 50 MG TBEC 1 tablet by mouth three times a day as needed DICLOFENAC SODIUM 68426266648 No Longer Active Fab Morales DO Active EMBRACE BLOOD GLUCOSE TEST STRP test blood sugar twice daily DX 250.0 2014 GLUCOSE BLOOD 78395543316 No Longer Active Tu Landeros MD Active TRUETEST TEST STRP test blood sugar three times daily dx: 250.00 GLUCOSE BLOOD 90230381891 No Longer Active Suzebianca Nicole RMA Active TRUERESULT BLOOD GLUCOSE W/DEVICE KIT use to test blood sugar tid dx: 250.00 BLOOD GLUCOSE MONITORING SUPPL 94393230089 No Longer Active Suze Corey RMA Active ALIGN 4 MG CAPS 1 tid PROBIOTIC PRODUCT 69713861144 No Longer Active Shaun Sy MD Active CIPRO 500 MG TABS 1 bid x 14 days start 09-28-13 CIPROFLOXACIN HCL 17382337805 No Longer Active Shaun Sy MD Active TRAMADOL HCL 50 MG TABS 1-2 tablets every 6 hours as needed for pain TRAMADOL HCL 96318260670 Active Tu Landeros MD Active HYDROCODONE-ACETAMINOPHEN 5-325 MG TABS 1 tab by mouth every 6 hours as needed for pain HYDROCODONE-ACETAMINOPHEN 08725513289 No Longer Active Tu Landeros MD Active OMEPRAZOLE 20 MG CPDR 1 po q a.m. OMEPRAZOLE 10436974501 Active Fab Morales DO Active GABAPENTIN 100 MG CAPS 1 po bid GABAPENTIN 91322639146 No Longer Active Tu Landeros MD Active B-12 100 MCG TABS Take one by mouth daily CYANOCOBALAMIN 55794316167 No Longer Active Tu Landeros MD Active BACTRIM DS 800-160 MG TABS 1 bid x 14 day start 09-28-13 SULFAMETHOXAZOLE-TRIMETHOPRIM 19319880391 No Longer Active Tu Landeros MD Active CARVEDILOL 12.5 MG TABS 1 po BID CARVEDILOL 92145693911 Active Tu Landeros MD Active TRILIPIX 135 MG CPDR 1 q hs CHOLINE FENOFIBRATE 25912062336 Active Tu Landeros MD Active FENOFIBRATE 145 MG TABS 1 po qd FENOFIBRATE 80513851735 No Longer Active JASPREET Perez Active OMEPRAZOLE 20 MG TBEC 1 PO 30 MIN BEFORE 1ST MEAL OMEPRAZOLE 24161679919 No Longer Active JASPREET Perez Active SIMVASTATIN 40 MG TABS Take one by mouth daily SIMVASTATIN 15245365082 No Longer Active JASPREET Perez Active VENLAFAXINE HCL 75 MG TABS 1 po BID VENLAFAXINE HCL 39684551145 No Longer Active JASPREET Perez Active CIPRO 500 MG TAB 1 tablet by mouth twice daily CIPROFLOXACIN HCL 14962688080 No Longer Active Tu Landeros MD Active VENLAFAXINE HCL 37.5 MG TABS 1 po BID VENLAFAXINE HCL 53723676252 No Longer Active Suzebianca VOGEL Active LAMISIL 250 MG TAB 1 po qd TERBINAFINE HCL 11021625129 No Longer Active Tu Landeros MD Active LORTAB 5 5-500 MG TABS 1/2 to 1 tablet by mouth every 4 hours as needed for pain HYDROCODONE-ACETAMINOPHEN 59849731408 No Longer Active Tu Landeros MD Active HYDROCODONE-ACETAMINOPHEN 5-500 MG TABS take one po Q 4-6 hours prn HYDROCODONE-ACETAMINOPHEN 19634943178 No Longer Active Tu Landeros MD Active BACTRIM DS 800-160 MG TABS 1 po BID x 7 days SULFAMETHOXAZOLE-TRIMETHOPRIM 25080148777 No Longer Active Tu Landeros MD Active VENLAFAXINE HCL 75 MG TABS 1 po BID VENLAFAXINE HCL 81908877186 No Longer Active Elvira Cervantes MD PhD Active TRAMADOL HCL 50 MG TABS 1 tablets every 6 hours as needed for pain TRAMADOL HCL 10000332952 No Longer Active Tu Landeros MD Active ACCU-CHEK FASTCLIX LANCETS MISC Use to check bloodsugar three times daily as needed LANCETS 91541439076 No Longer Active Tu Landeros MD Active ACCU-CHEK KEYONA PLUS STRP Use for testing bloodsugars three times daily as needed GLUCOSE BLOOD 50349350587 No Longer Active Tu Landeros MD Active ACCU-CHEK KEYONA PLUS W/DEVICE KIT Use for testing bloodsugars three times daily as needed BLOOD GLUCOSE MONITORING SUPPL 05067230124 No Longer Active Tu Landeros MD Active SPIRONOLACTONE 25 MG TAB 0.5 tablet by mouth daily SPIRONOLACTONE 95529093810 No Longer Active Tu Landeros MD Active ALPRAZOLAM 0.5 MG TABS 1 tab every 6hrs as needed ALPRAZOLAM 93370600757 No Longer Active Tu Landeros MD Active AUGMENTIN 875-125 MG TAB 1 tab by mouth twice daily with food AMOXICILLIN-POT CLAVULANATE 76559149157 No Longer Active Tu Landeros MD Active PREDNISONE 20 MG TAB 2 tabs daily for 3 days, 1 tab daily for 3 days, 1/2 tab daily for 2 days PREDNISONE 88318743053 No Longer Active Tu Landeros MD Active XANAX 0.5 MG TABS 1 tablet every 6 hrs prn ALPRAZOLAM 90601253610 No Longer Active Tu Landeros MD Active PREDNISONE 20 MG TAB 2 tabs daily for 3 days, 1 tab daily for 3 days, 1/2 tab daily for 2 days PREDNISONE 25887035256 No Longer Active Tu Landeros MD Active TRIAMCINOLONE ACETONIDE 0.1 % OINT Apply to affected areas TID for up to 2 weeks TRIAMCINOLONE ACETONIDE 52723252764 No Longer Active Tu Landeros MD Active LORTAB 5 5-500 MG TABS 1/2 to 1 tablet by mouth every 4 hours as needed for pain HYDROCODONE-ACETAMINOPHEN 99755756473 No Longer Active Tu Landeros MD Active MULTIVITAMINS TABS Take one by mouth daily MULTIPLE VITAMIN 17846385534 No Longer Active Tu Landeros MD Active MELATONIN 5 MG TABS Take one by mouth daily MELATONIN 35039204034 No Longer Active Tu Landeros MD Active SOMA 350 MG TAB 1 po q 6 hours prn spasm CARISOPRODOL 09425919567 No Longer Active Tu Landeros MD Active MECLIZINE HCL 25 MG CHEW TAB 1 four times a day as needed for dizziness 08/05 MECLIZINE HCL 26291767196 No Longer Active Fab Morales DO Active ANGEL BREEZE 2 TEST DISK test tid prn GLUCOSE BLOOD 63545349082 No Longer Active Negra Scott RN Active REGLAN 10 MG TAB 1 po TID PRN Nausea METOCLOPRAMIDE HCL 66358200972 No Longer Active Tu Landeros MD Active METFORMIN HCL 500 MG TABS 1 PO BID METFORMIN HCL 41471715356 No Longer Active Tu Landeros MD Active AMBIEN 10 MG TAB 1 tab by mouth at bedtime as needed for sleep ZOLPIDEM TARTRATE 98502538556 No Longer Active Tu Landeros MD Active FLUOXETINE HCL 40 MG CAPS 1 po q day FLUOXETINE HCL 86395921095 No Longer Active Mayra Terry Active TRILIPIX 135 MG CPDR 1 po qd CHOLINE FENOFIBRATE 97278900694 No Longer Active Tu Landeros MD Active AMBIEN 10 MG TAB 1 tab by mouth at bedtime as needed for sleep AMBIEN 10 MG TAB 172073 ZOLPIDEM TARTRATE Inactive METFORMIN HCL 500 MG TABS 1 PO BID METFORMIN HCL 500 MG TABS 162247 METFORMIN HCL Inactive REGLAN 10 MG TAB 1 po TID PRN Nausea REGLAN 10 MG TAB 002956 METOCLOPRAMIDE HCL Inactive MECLIZINE HCL 25 MG CHEW TAB 1 four times a day as needed for dizziness 08/05 MECLIZINE HCL 25 MG CHEW TAB 222635 MECLIZINE HCL Inactive SOMA 350 MG TAB 1 po q 6 hours prn spasm SOMA 350 MG TAB 136981 CARISOPRODOL Inactive MELATONIN 5 MG TABS Take one by mouth daily MELATONIN 5 MG TABS 938280 MELATONIN Inactive MULTIVITAMINS TABS Take one by mouth daily MULTIVITAMINS TABS MULTIPLE VITAMIN Inactive LORTAB 5 5-500 MG TABS 1/2 to 1 tablet by mouth every 4 hours as needed for pain LORTAB 5 5-500 MG TABS 769156 HYDROCODONE- ACETAMINOPHEN Inactive XANAX 0.5 MG TABS 1 tablet every 6 hrs prn XANAX 0.5 MG TABS 730875 ALPRAZOLAM Inactive AUGMENTIN 875-125 MG TAB 1 tab by mouth twice daily with food AUGMENTIN 875-125 MG TAB 489368 AMOXICILLIN-POT CLAVULANATE Inactive ALPRAZOLAM 0.5 MG TABS 1 tab every 6hrs as needed ALPRAZOLAM 0.5 MG TABS 323348 ALPRAZOLAM Inactive SPIRONOLACTONE 25 MG TAB 0.5 tablet by mouth daily SPIRONOLACTONE 25 MG TAB 029799 SPIRONOLACTONE Inactive ACCU-CHEK KEYONA PLUS W/DEVICE KIT Use for testing bloodsugars three times daily as needed ACCU-CHEK KEYONA PLUS W/DEVICE KIT BLOOD GLUCOSE MONITORING SUPPL Inactive ACCU-CHEK KEYONA PLUS STRP Use for testing bloodsugars three times daily as needed ACCU-CHEK KEYONA PLUS STRP GLUCOSE BLOOD Inactive ACCU-CHEK FASTCLIX LANCETS MISC Use to check bloodsugar three times daily as needed ACCU-CHEK FASTCLIX LANCETS MISC 46766588368 LANCETS Inactive TRAMADOL HCL 50 MG TABS 1 tablets every 6 hours as needed for pain TRAMADOL HCL 50 MG TABS 101210 TRAMADOL HCL Inactive VENLAFAXINE HCL 75 MG TABS 1 po BID VENLAFAXINE HCL 75 MG TABS 342971 VENLAFAXINE HCL Inactive HYDROCODONE-ACETAMINOPHEN 5-500 MG TABS take one po Q 4-6 hours prn HYDROCODONE-ACETAMINOPHEN 5-500 MG TABS 406138 HYDROCODONE- ACETAMINOPHEN Inactive LORTAB 5 5-500 MG TABS 1/2 to 1 tablet by mouth every 4 hours as needed for pain LORTAB 5 5-500 MG TABS 919415 HYDROCODONE- ACETAMINOPHEN Inactive LAMISIL 250 MG TAB 1 po qd LAMISIL 250 MG TAB 836200 TERBINAFINE HCL Inactive VENLAFAXINE HCL 37.5 MG TABS 1 po BID VENLAFAXINE HCL 37.5 MG TABS 940804 VENLAFAXINE HCL Inactive CIPRO 500 MG TAB 1 tablet by mouth twice daily CIPRO 500 MG TAB 650604 CIPROFLOXACIN HCL Inactive VENLAFAXINE HCL 75 MG TABS 1 po BID VENLAFAXINE HCL 75 MG TABS 550062 VENLAFAXINE HCL Inactive SIMVASTATIN 40 MG TABS Take one by mouth daily SIMVASTATIN 40 MG TABS 480571 SIMVASTATIN Inactive OMEPRAZOLE 20 MG TBEC 1 PO 30 MIN BEFORE 1ST MEAL OMEPRAZOLE 20 MG TBEC 235276 OMEPRAZOLE Inactive FENOFIBRATE 145 MG TABS 1 po qd FENOFIBRATE 145 MG TABS 783504 FENOFIBRATE Inactive BACTRIM DS 800-160 MG TABS 1 bid x 14 day start 09-28-13 BACTRIM DS 800-160 MG TABS 455366 SULFAMETHOXAZOLE-TRIMETHOPRIM Inactive B-12 100 MCG TABS Take one by mouth daily B-12 100 MCG TABS CYANOCOBALAMIN Inactive GABAPENTIN 100 MG CAPS 1 po bid GABAPENTIN 100 MG CAPS 291380 GABAPENTIN Inactive HYDROCODONE-ACETAMINOPHEN 5-325 MG TABS 1 tab by mouth every 6 hours as needed for pain HYDROCODONE-ACETAMINOPHEN 5-325 MG TABS 966958 HYDROCODONE-ACETAMINOPHEN Inactive CIPRO 500 MG TABS 1 bid x 14 days start 09-28-13 CIPRO 500 MG TABS 233238 CIPROFLOXACIN HCL Inactive ALIGN 4 MG CAPS [...] as needed DICLOFENAC SODIUM 50 MG TBEC 271504 DICLOFENAC SODIUM Inactive PREDNISONE 20 MG TAB 2 tablets once daily for 2 days, then 1 tablet once daily for 2 days PREDNISONE 20 MG TAB 567927 PREDNISONE Inactive TRUEDRAW LANCING DEVICE MISC Test twice a day dx 250.0 TRUEDRAW LANCING DEVICE MISC LANCET DEVICES Inactive TRUERESULT BLOOD GLUCOSE W/DEVICE KIT test blood sugar twice daily dx 250.00 TRUERESULT BLOOD GLUCOSE W/DEVICE KIT BLOOD GLUCOSE MONITORING SUPPL Inactive FLONASE 50 MCG/ACT SUSP 1 spray each nostril twice daily until bottle empty FLONASE 50 MCG/ACT SUSP 1641657 FLUTICASONE PROPIONATE Inactive VENTOLIN HFA 108 (90 BASE) MCG/ACT AERS 1-2 puffs every 4 hours if needed for cough/congestion VENTOLIN HFA 108 (90 BASE) MCG/ACT AERS ALBUTEROL SULFATE Inactive REQUIP 2 MG TABS Take one tablet at bedtime prn REQUIP 2 MG TABS 241742 ROPINIROLE HCL Inactive SUPER B COMPLEX/VITAMIN C TABS 1 qd SUPER B COMPLEX/ VITAMIN C TABS 15574518796 B COMPLEX-C Inactive TRUEDRAW LANCING DEVICE MISC test blood sugar twice daily dx: 250.00 TRUEDRAW LANCING DEVICE MISC LANCET DEVICES Inactive TRUETEST TEST INVITR STRP test blood sugar twice daily. DX 250.0 TRUETEST TEST INVITR STRP GLUCOSE BLOOD Inactive CYCLOBENZAPRINE HCL 10 MG ORAL TABS 1 po TID PRN Muscle Spasm CYCLOBENZAPRINE HCL 10 MG ORAL TABS 797512 CYCLOBENZAPRINE HCL Inactive DICLOFENAC SODIUM 50 MG ORAL TBEC 1 po BID PRN Pain DICLOFENAC SODIUM 50 MG ORAL TBEC 911442 DICLOFENAC SODIUM Inactive TRIAMCINOLONE ACETONIDE 0.1 % OINT Apply to affected areas TID for up to 2 weeks TRIAMCINOLONE ACETONIDE 0.1 % OINT 9538187 TRIAMCINOLONE ACETONIDE Inactive PREDNISONE 20 MG TAB 2 tabs daily for 3 days, 1 tab daily for 3 days, 1/2 tab daily for 2 days PREDNISONE 20 MG TAB 065683 PREDNISONE Inactive PREDNISONE 20 MG TAB 2 tabs daily for 3 days, 1 tab daily for 3 days, 1/2 tab daily for 2 days PREDNISONE 20 MG TAB 271656 PREDNISONE Inactive BACTRIM DS 800-160 MG TABS 1 po BID x 7 days BACTRIM DS 800-160 MG TABS 017907 SULFAMETHOXAZOLE-TRIMETHOPRIM Inactive ZITHROMAX 250 MG TAB 2 po today, then 1 po q days 2-5 ZITHROMAX 250 MG TAB 907630 AZITHROMYCIN Inactive Advance Directives Directive Description Start Date DISCUSSED WITH PATIENT -- NO DECISION MADE Immunizations Vaccine Administration Date Value Standard Description Seasonal influenza vaccine, injectable, containing preservative, for > 3 years old (Afluria, FluLaval, Fluzone, Fluvirin, Fluarix, Agriflu(>=18 yo)) Fluzone (>3 yrs.) [[id number]] Influenza, seasonal, injectable influenza immunization (Flu Vax) has been administered 02/22/2012 influenza virus vaccine, unspecified formulation Seasonal influenza vaccine, injectable, containing preservative, for > 3 years old (Afluria, FluLaval, Fluzone, Fluvirin, Fluarix, Agriflu(>=18 yo)) Fluzone (>3 yrs.) [[id number]] Influenza, seasonal, injectable Vital Signs Date Name [...] Magnesium - Chemistry sodium, serum 143 mmol/L 057-496 9122/01/10 carbon dioxide, venous blood 28.0 mmol/L 21.0-32.0 potassium, serum 4.5 mmol/L 3.5-5.2 chloride, serum 104 mmol/L 98-107 blood glucose 158 mg/dL 65-110 urea nitrogen, blood 23 mg/dL 7-18 creatinine, serum 1.06 mg/dL 0.55-1.30 alanine aminotransferase (SGPT), serum 42 U/L 12-78 aspartate aminotransferase (SGOT), serum 32 U/L 15-37 calcium, serum 9.3 mg/dL 8.5-10.1 bilirubin, serum, total 0.20 mg/dL 0.00-1.00 cholesterol, serum 177 mg/dL 783-454 5251/01/10 triglyceride, serum, fasting 320 mg/dL 30-200 HDL [...] <30 Encounters Code Encounter Date Provider Facility CPT-65926 Level 3 Est. Patient 14:20:36 CDT Tu Landeros MD [facility] CPT-37118 Level 4 Est. Patient 14:28:34 CDT Tu Landeros MD [facility] CPT-04015 Level 3 Est. Patient 13:33:09 CDT Tu Landeros MD [facility] CPT-26314 Level 4 Est. Patient 14:29:21 CDT Tu Landeros MD [facility] CPT-52914 Level 4 Est. Patient 09:08:17 SUPPLY CHAIN GENERALIST Tu Landeros MD [facility] CPT-81870 Level 4 Est. Patient 14:40:19 CDT Tu Landeros MD [facility] CPT-03768 Level 4 Est. Patient 14:06:04 SUPPLY CHAIN GENERALIST Tu Landeros MD [facility] CPT-43406 Level 3 Est. Patient 14:05:18 SUPPLY CHAIN GENERALIST Tu Landeros MD [facility] CPT-43590 Level 3 Est. Patient 10:06:54 SUPPLY CHAIN GENERALIST Miranda Suresh APRN [facility] CPT-41494 Level 4 Est. Patient 13:50:18 SUPPLY CHAIN GENERALIST Tu Landeros MD [facility] CPT-27572 Level 3 Est. Patient 10:30:04 CDT Tu Landeros MD [facility] CPT-58857 Level 4 Est. Patient 11:03:38 CDT Tu Landeros MD [facility] CPT-27037 Level 3 Est. Patient 10:20:44 CDT Fab Morales DO [facility] CPT-24112 Level 4 Est. Patient 14:38:57 CDT Tu Landeros MD [facility] CPT-49871 Level 4 Est. Patient 14:27:39 SUPPLY CHAIN GENERALIST Tu Landeros MD [facility] CPT-28569 Level 4 Est. Patient 09:45:25 CDT Tu Landeros MD [facility] CPT-69415 Level 4 Est. Patient 09:05:20 SUPPLY CHAIN GENERALIST Tu Landeros MD [facility] CPT-23698 Level 4 Est. Patient 14:09:06 CDT Tu Landeros MD [facility] CPT-21500 Level 3 Est. Patient 13:36:54 CDT Tu Landeros MD [facility] CPT-24119 Level 3 Est. Patient 08:59:14 CDT Tu Landeros MD [facility] CPT-76668 Level 3 Est. Patient 13:48:35 CDT Fab Morales DO [facility] CPT-68822 Level 4 Est. Patient 10:05:48 CDT Tu Landeros MD [facility] CPT-71293 Level 3 Est. Patient 13:38:42 CDT Marek BANKS [facility] CPT-68873 Level 5 Est. Patient 08:08:39 CDT Jerrica FRANCIS [facility] CPT-03432 Level 4 Est. Patient 14:23:38 CDT Tu Landeros MD [facility] CPT-73320 Level 3 Est. Patient 11:44:04 CDT Tu Landeros MD [facility] CPT-67153 Level 3 Est. Patient 11:03:20 SUPPLY CHAIN GENERALIST Tu Landeros MD [facility] CPT-95438 Level 3 Est. Patient 11:03:14 SUPPLY CHAIN GENERALIST Tu Landeros MD [facility] CPT-11516 Level 3 Est. Patient 12:42:49 CDT Tu Landeros MD [facility] CPT-54165 Level 3 Est. Patient 11:52:06 CDT Tu Landeros MD [facility] CPT-89111 Level 3 Est. Patient 13:58:11 CDT Tu Landeros MD [facility] CPT-37951 Level 3 Est. Patient 17:50:07 CDT Fab Morales DO [facility] CPT-17636 Level 3 Est. Patient 12:06:29 CDT Elvira Cervantes MD [facility] CPT-65331 Level 3 Est. Patient 15:50:32 CDT Tu Landeros MD [facility] CPT-04632 Level 4 Est. Patient 16:08:29 CDT Tu Landeros MD [facility] CPT-09626 Level 3 Est. Patient 16:04:19 CDT Tu Landeros MD [facility] CPT-93395 Level 3 Est. Patient 11:22:30 SUPPLY CHAIN GENERALIST Tu Landeros MD [facility] CPT-79739 Level 4 Est. Patient 16:24:02 SUPPLY CHAIN GENERALIST Tu Landeros MD [facility] CPT-90185 Level 3 Est. Patient 17:21:23 SUPPLY CHAIN GENERALIST Tu Landeros MD [facility] Procedures Code Procedure Name Date Entry Date Standard Description CPT-37815 Shoulder, right, comp min 2V - XRAY USE ONLY 13:50:22 CDT CPT-G0009 Administration of Pneumococcal Vaccine 15:08:26 CDT CPT-04457 Prevnar 13 Intramuscular Suspension 15:08:26 CDT 10/08 CPT-G0439 [facility] Annual Wellness Exam 14:29:22 CDT CPT-81328 Venipuncture Draw Fee 13:15:35 CDT CPT-30227 Magnesium - LAB USE ONLY 11:14:20 SUPPLY CHAIN GENERALIST CPT-53174 Lipid - LAB USE ONLY 11:14:20 SUPPLY CHAIN GENERALIST CPT-23286 HGBA1C - LAB USE ONLY 11:14:20 SUPPLY CHAIN GENERALIST CPT-64405 CMP - LAB USE ONLY 11:14:19 SUPPLY CHAIN GENERALIST CPT-99098 CBC - LAB USE ONLY 11:14:19 SUPPLY CHAIN GENERALIST CPT-61026 Venipuncture Draw Fee 11:14:18 SUPPLY CHAIN GENERALIST CPT-10879 First Vx - Ix admin for Medicare patients 16:46:52 CDT CPT-24119 Fluzone Preservative Free Intramuscular Suspension 16:46 :51 CDT CPT-97838 CBC - LAB USE ONLY 17:14:46 CDT CPT-40075 HGBA1C - LAB USE ONLY 17:14:46 CDT CPT-47997 Venipuncture Draw Fee 17:14:46 CDT CPT-G0438 Initial Annual Wellness Exam 14:13:04 CDT CPT-80088 Breathing Tx 10:06:54 SUPPLY CHAIN GENERALIST CPT-78770 Postop F/U Visit 10:02:45 CDT CPT-LR Lesion Removal 09:02:56 CDT CPT-JTINJ Asp/Joint Injection 15:51:27 SUPPLY CHAIN GENERALIST CPT-OV Office Visit 15:52:02 SUPPLY CHAIN GENERALIST CPT-OV Office Visit 15:45:11 CDT CPT-000 Give Zostavax 14:09:06 CDT CPT-84510 Administration single or combination vaccine inc oral 15 :19:04 CDT CPT-45059 Zoster Vaccine (Zostavax) 15:19:04 CDT CPT-11179 Administration single or combination vaccine inc oral 20 :51:03 CDT CPT-31615 Influenza split virus > age 3 20:51:03 CDT CPT-44609 No Charge Offi Visit 14:52:03 CDT CPT-OV Office Visit 14:57:43 CDT CPT-OV Office Visit 15:22:32 CDT CPT-69606 Administration single or combination vaccine inc oral 11 :33:15 CDT CPT-05696 Influenza split virus > age 3 11:33:15 CDT
--- OUTSIDE RECORDS SUMMARY | 2018-04-25 16:35 | XMS REPORT | Clinical Summary ---
Author Author Admin, SACHI Organization [employer] Address Unknown Phone Unavailable Allergies, Adverse Reactions, [...] MG ORAL TABS 1 po qd CANAGLIFLOZIN 01082438964 Active Tu Landeros MD Active GLIPIZIDE 5 MG ORAL TABS 1 po qd GLIPIZIDE 04649272356 No Longer Active Tu Landeros MD Active VENLAFAXINE HCL 75 MG ORAL TABS 1 po BID VENLAFAXINE HCL 74854733112 Active Tu Landeros MD Active GLIMEPIRIDE 1 MG ORAL TABS 1 po qd GLIMEPIRIDE 48940103286 No Longer Active Tu Landeros MD Active TRUE METRIX BLOOD GLUCOSE TEST INVITR STRP Test blood sugar BID Dx: E11.9 GLUCOSE BLOOD 06780620751 Active Tu Landeros MD Active TRUE METRIX AIR GLUCOSE METER W/DEVICE KIT Test blood glucose BID Dx: E11.9 BLOOD GLUCOSE MONITORING SUPPL 48567212064 Active Tu Landeros MD Active TRUETEST TEST INVITR STRP test blood sugar twice daily. DX 250.0 GLUCOSE BLOOD 05163426912 No Longer Active Mirna Stanley LPN Active TRUEDRAW LANCING DEVICE MISC test blood sugar twice daily dx: 250.00 LANCET DEVICES 32816144071 No Longer Active Mirna Stanley LPN Active ENALAPRIL MALEATE 20 MG TABS 2 po qd ENALAPRIL MALEATE 29078302208 Active Tu Landeros MD Active SUPER B COMPLEX/VITAMIN C TABS 1 qd B COMPLEX-C 59140371762 No Longer Active Tu Landeros MD Active ASPIRIN EC 81 MG ORAL TBEC 1 po qd ASPIRIN 75819936649 Active Tu Landeros MD Active GLUCOSAMINE 500 MG TABS 2 po qd GLUCOSAMINE Active Tu Landeros MD Active SIMVASTATIN 40 MG TABS 0.5 po qHS SIMVASTATIN 40902141847 Active Tu Landeros MD Active FISH OIL 1000 MG CAPS 1 po qd OMEGA-3 FATTY ACIDS 48987851653 Active Tu Landeros MD Active METFORMIN HCL 1000 MG TABS 1 po BID METFORMIN HCL 03086386298 Active Tu Landeros MD Active KLOR-CON 10 10 MEQ CR-TABS 2 po qd POTASSIUM CHLORIDE 86858560353 Active Tu Landeros MD Active FUROSEMIDE 40 MG TAB 1 po qd FUROSEMIDE 52995577911 Active Tu Landeros MD Active REQUIP 2 MG ORAL TABS 1 po qHS PRN Restless legs ROPINIROLE HCL 01747816043 Active Tu Landeros MD Active GABAPENTIN 100 MG CAPS 1 po BID GABAPENTIN 40545531930 Active Tu Landeros MD Active REQUIP 2 MG TABS Take one tablet at bedtime prn ROPINIROLE HCL 93458616799 No Longer Active Tu Landeros MD Active VENTOLIN HFA 108 (90 BASE) MCG/ACT AERS 1-2 puffs every 4 hours if needed for cough/congestion ALBUTEROL SULFATE 43425124240 No Longer Active Ambika Aden APRN Active ZITHROMAX 250 MG TAB 2 po today, then 1 po q days 2-5 AZITHROMYCIN 66470327373 No Longer Active Miranda Suresh APRN Active FLONASE 50 MCG/ACT SUSP 1 spray each nostril twice daily until bottle empty FLUTICASONE PROPIONATE 95999861573 No Longer Active Tu Landeros MD Active COLACE 100 MG CAP 1 po BID PRN Constipation DOCUSATE SODIUM 61624053921 Active Tu Landeros MD Active TRUERESULT BLOOD GLUCOSE W/DEVICE KIT test blood sugar twice daily dx 250.00 BLOOD GLUCOSE MONITORING SUPPL 92000027849 No Longer Active Tu Landeros MD Active TRUEDRAW LANCING DEVICE MISC Test twice a day dx 250.0 LANCET DEVICES 76891611709 No Longer Active Tu Landeros MD Active PREDNISONE 20 MG TAB 2 tablets once daily for 2 days, then 1 tablet once daily for 2 days PREDNISONE 89996214917 No Longer Active Tu Landeros MD Active DICLOFENAC SODIUM 50 MG TBEC 1 tablet by mouth three times a day as needed DICLOFENAC SODIUM 83676925834 No Longer Active Fab Morales DO Active EMBRACE BLOOD GLUCOSE TEST STRP test blood sugar twice daily DX 250.0 2014 GLUCOSE BLOOD 82188908025 No Longer Active Tu Landeros MD Active TRUETEST TEST STRP test blood sugar three times daily dx: 250.00 GLUCOSE BLOOD 61628361969 No Longer Active Suze VOGEL Active TRUERESULT BLOOD GLUCOSE W/DEVICE KIT use to test blood sugar tid dx: 250.00 BLOOD GLUCOSE MONITORING SUPPL 01054910176 No Longer Active Suze Nicole RMA Active ALIGN 4 MG CAPS 1 tid PROBIOTIC PRODUCT 72632800030 No Longer Active Shaun Sy MD Active CIPRO 500 MG TABS 1 bid x 14 days start 09-28-13 CIPROFLOXACIN HCL 31072321694 No Longer Active Shaun Sy MD Active TRAMADOL HCL 50 MG TABS 1-2 tablets every 6 hours as needed for pain TRAMADOL HCL 40232861690 Active Tu Landeros MD Active HYDROCODONE-ACETAMINOPHEN 5-325 MG TABS 1 tab by mouth every 6 hours as needed for pain HYDROCODONE-ACETAMINOPHEN 55878142362 No Longer Active Tu Landeros MD Active OMEPRAZOLE 20 MG CPDR 1 po q a.m. OMEPRAZOLE 80321500004 Active Lesli Kellogg APRN Active GABAPENTIN 100 MG CAPS 1 po bid GABAPENTIN 69121321441 No Longer Active Tu Landeros MD Active B-12 100 MCG TABS Take one by mouth daily CYANOCOBALAMIN 80052711816 No Longer Active Tu Landreos MD Active BACTRIM DS 800-160 MG TABS 1 bid x 14 day start 09-28-13 SULFAMETHOXAZOLE-TRIMETHOPRIM 07974810579 No Longer Active Tu Landeros MD Active CARVEDILOL 12.5 MG TABS 1 po BID CARVEDILOL 29730158713 Active Tu Landeros MD Active TRILIPIX 135 MG CPDR 1 q hs CHOLINE FENOFIBRATE 88071666704 Active Tu Landeros MD Active FENOFIBRATE 145 MG TABS 1 po qd FENOFIBRATE 86703383059 No Longer Active JASPREET Perez Active OMEPRAZOLE 20 MG TBEC 1 PO 30 MIN BEFORE 1ST MEAL OMEPRAZOLE 97825889859 No Longer Active JASPREET Perez Active SIMVASTATIN 40 MG TABS Take one by mouth daily SIMVASTATIN 32672143451 No Longer Active Gustavo NormaNURYSCandido Active VENLAFAXINE HCL 75 MG TABS 1 po BID VENLAFAXINE HCL 72436110726 No Longer Active Gustavo [place] RMA Active CIPRO 500 MG TAB 1 tablet by mouth twice daily CIPROFLOXACIN HCL 03800163673 No Longer Active Tu Landeros MD Active VENLAFAXINE HCL 37.5 MG TABS 1 po BID VENLAFAXINE HCL 41291872100 No Longer Active Suze Corey RMA Active LAMISIL 250 MG TAB 1 po qd TERBINAFINE HCL 50862130490 No Longer Active Tu Landeros MD Active LORTAB 5 5-500 MG TABS 1/2 to 1 tablet by mouth every 4 hours as needed for pain HYDROCODONE-ACETAMINOPHEN 83048307035 No Longer Active Tu Landeros MD Active HYDROCODONE-ACETAMINOPHEN 5-500 MG TABS take one po Q 4-6 hours prn HYDROCODONE-ACETAMINOPHEN 10280907504 No Longer Active Tu Landeros MD Active BACTRIM DS 800-160 MG TABS 1 po BID x 7 days SULFAMETHOXAZOLE-TRIMETHOPRIM 66936297980 No Longer Active Tu Landeros MD Active VENLAFAXINE HCL 75 MG TABS 1 po BID VENLAFAXINE HCL 15029035384 No Longer Active Elvira Cervantes MD PhD Active TRAMADOL HCL 50 MG TABS 1 tablets every 6 hours as needed for pain TRAMADOL HCL 51349801631 No Longer Active Tu Landeros MD Active ACCU-CHEK FASTCLIX LANCETS MISC Use to check bloodsugar three times daily as needed LANCETS 38050317715 No Longer Active Tu Landeros MD Active ACCU-CHEK KEYONA PLUS STRP Use for testing bloodsugars three times daily as needed GLUCOSE BLOOD 29421699655 No Longer Active Tu Landeros MD Active ACCU-CHEK KEYONA PLUS W/DEVICE KIT Use for testing bloodsugars three times daily as needed BLOOD GLUCOSE MONITORING SUPPL 01569522873 No Longer Active Tu Landeros MD Active SPIRONOLACTONE 25 MG TAB 0.5 tablet by mouth daily SPIRONOLACTONE 25724670748 No Longer Active Tu Landeros MD Active ALPRAZOLAM 0.5 MG TABS 1 tab every 6hrs as needed ALPRAZOLAM 38055926447 No Longer Active Tu Landeros MD Active AUGMENTIN 875-125 MG TAB 1 tab by mouth twice daily with food AMOXICILLIN-POT CLAVULANATE 03021804174 No Longer Active Tu Landeros MD Active PREDNISONE 20 MG TAB 2 tabs daily for 3 days, 1 tab daily for 3 days, 1/2 tab daily for 2 days PREDNISONE 38920338775 No Longer Active Tu Landeros MD Active XANAX 0.5 MG TABS 1 tablet every 6 hrs prn ALPRAZOLAM 90844743461 No Longer Active Tu Landeros MD Active PREDNISONE 20 MG TAB 2 tabs daily for 3 days, 1 tab daily for 3 days, 1/2 tab daily for 2 days PREDNISONE 29701180611 No Longer Active Tu Landeros MD Active TRIAMCINOLONE ACETONIDE 0.1 % OINT Apply to affected areas TID for up to 2 weeks TRIAMCINOLONE ACETONIDE 46666543270 No Longer Active Tu Landeros MD Active LORTAB 5 5-500 MG TABS 1/2 to 1 tablet by mouth every 4 hours as needed for pain HYDROCODONE-ACETAMINOPHEN 33818482041 No Longer Active Tu Landeros MD Active MULTIVITAMINS TABS Take one by mouth daily MULTIPLE VITAMIN 52353164797 No Longer Active Tu Landeros MD Active MELATONIN 5 MG TABS Take one by mouth daily MELATONIN 41465344307 No Longer Active Tu Landeros MD Active SOMA 350 MG TAB 1 po q 6 hours prn spasm CARISOPRODOL 51557093608 No Longer Active Tu Landeros MD Active MECLIZINE HCL 25 MG CHEW TAB 1 four times a day as needed for dizziness 08/05 MECLIZINE HCL 01371842637 No Longer Active Fab Morales DO Active ANGEL BREEZE 2 TEST DISK test tid prn GLUCOSE BLOOD 64575069349 No Longer Active Negra Scott RN Active REGLAN 10 MG TAB 1 po TID PRN Nausea METOCLOPRAMIDE HCL 95947602489 No Longer Active Tu Landeros MD Active METFORMIN HCL 500 MG TABS 1 PO BID METFORMIN HCL 52145693875 No Longer Active Tu Landeros MD Active AMBIEN 10 MG TAB 1 tab by mouth at bedtime as needed for sleep ZOLPIDEM TARTRATE 65871291575 No Longer Active Tu Landeros MD Active FLUOXETINE HCL 40 MG CAPS 1 po q day FLUOXETINE HCL 36255167218 No Longer Active Mayra [place] Active TRILIPIX 135 MG CPDR 1 po qd CHOLINE FENOFIBRATE 56955256531 No Longer Active Tu Landeros MD Active AMBIEN 10 MG TAB 1 tab by mouth at bedtime as needed for sleep AMBIEN 10 MG TAB 715520 ZOLPIDEM TARTRATE Inactive METFORMIN HCL 500 MG TABS 1 PO BID METFORMIN HCL 500 MG TABS 366258 METFORMIN HCL Inactive REGLAN 10 MG TAB 1 po TID PRN Nausea REGLAN 10 MG TAB 862501 METOCLOPRAMIDE HCL Inactive MECLIZINE HCL 25 MG CHEW TAB 1 four times a day as needed for dizziness 08/05 MECLIZINE HCL 25 MG CHEW TAB 418605 MECLIZINE HCL Inactive SOMA 350 MG TAB 1 po q 6 hours prn spasm SOMA 350 MG TAB 907098 CARISOPRODOL Inactive MELATONIN 5 MG TABS Take one by mouth daily MELATONIN 5 MG TABS 391806 MELATONIN Inactive MULTIVITAMINS TABS Take one by mouth daily MULTIVITAMINS TABS MULTIPLE VITAMIN Inactive LORTAB 5 5-500 MG TABS 1/2 to 1 tablet by mouth every 4 hours as needed for pain LORTAB 5 5-500 MG TABS HYDROCODONE- ACETAMINOPHEN Inactive XANAX 0.5 MG TABS 1 tablet every 6 hrs prn XANAX 0.5 MG TABS 790018 ALPRAZOLAM Inactive AUGMENTIN 875-125 MG TAB 1 tab by mouth twice daily with food AUGMENTIN 875-125 MG TAB 203276 AMOXICILLIN-POT CLAVULANATE Inactive ALPRAZOLAM 0.5 MG TABS 1 tab every 6hrs as needed ALPRAZOLAM 0.5 MG TABS 730296 ALPRAZOLAM Inactive SPIRONOLACTONE 25 MG TAB 0.5 tablet by mouth daily SPIRONOLACTONE 25 MG TAB 106810 SPIRONOLACTONE Inactive ACCU-CHEK KEYONA PLUS W/DEVICE KIT Use for testing bloodsugars three times daily as needed ACCU-CHEK KEYONA PLUS W/DEVICE KIT BLOOD GLUCOSE MONITORING SUPPL Inactive ACCU-CHEK KEYONA PLUS STRP Use for testing bloodsugars three times daily as needed ACCU-CHEK KEYONA PLUS STRP GLUCOSE BLOOD Inactive ACCU-CHEK FASTCLIX LANCETS MISC Use to check bloodsugar three times daily as needed ACCU-CHEK FASTCLIX LANCETS MISC 99672455119 LANCETS Inactive TRAMADOL HCL 50 MG TABS 1 tablets every 6 hours as needed for pain TRAMADOL HCL 50 MG TABS 336364 TRAMADOL HCL Inactive VENLAFAXINE HCL 75 MG TABS 1 po BID VENLAFAXINE HCL 75 MG TABS 478816 VENLAFAXINE HCL Inactive HYDROCODONE-ACETAMINOPHEN 5-500 MG TABS take one po Q 4-6 hours prn HYDROCODONE-ACETAMINOPHEN 5-500 MG TABS HYDROCODONE- ACETAMINOPHEN Inactive LORTAB 5 5-500 MG TABS 1/2 to 1 tablet by mouth every 4 hours as needed for pain LORTAB 5 5-500 MG TABS HYDROCODONE- ACETAMINOPHEN Inactive LAMISIL 250 MG TAB 1 po qd LAMISIL 250 MG TAB 404221 TERBINAFINE HCL Inactive VENLAFAXINE HCL 37.5 MG TABS 1 po BID VENLAFAXINE HCL 37.5 MG TABS 423338 VENLAFAXINE HCL Inactive CIPRO 500 MG TAB 1 tablet by mouth twice daily CIPRO 500 MG TAB 905885 CIPROFLOXACIN HCL Inactive VENLAFAXINE HCL 75 MG TABS 1 po BID VENLAFAXINE HCL 75 MG TABS 338875 VENLAFAXINE HCL Inactive SIMVASTATIN 40 MG TABS Take one by mouth daily SIMVASTATIN 40 MG TABS 650892 SIMVASTATIN Inactive OMEPRAZOLE 20 MG TBEC 1 PO 30 MIN BEFORE 1ST MEAL OMEPRAZOLE 20 MG TBEC 769936 OMEPRAZOLE Inactive FENOFIBRATE 145 MG TABS 1 po qd FENOFIBRATE 145 MG TABS 553091 FENOFIBRATE Inactive BACTRIM DS 800-160 MG TABS 1 bid x 14 day start 09-28-13 BACTRIM DS 800-160 MG TABS 658945 SULFAMETHOXAZOLE-TRIMETHOPRIM Inactive B-12 100 MCG TABS Take one by mouth daily B-12 100 MCG TABS CYANOCOBALAMIN Inactive GABAPENTIN 100 MG CAPS 1 po bid GABAPENTIN 100 MG CAPS 470434 GABAPENTIN Inactive HYDROCODONE-ACETAMINOPHEN 5-325 MG TABS 1 tab by mouth every 6 hours as needed for pain HYDROCODONE-ACETAMINOPHEN 5-325 MG TABS 692936 HYDROCODONE-ACETAMINOPHEN Inactive CIPRO 500 MG TABS 1 bid x 14 days start 09-28-13 CIPRO 500 MG TABS 949734 CIPROFLOXACIN HCL Inactive ALIGN 4 MG CAPS [...] as needed DICLOFENAC SODIUM 50 MG TBEC 831016 DICLOFENAC SODIUM Inactive PREDNISONE 20 MG TAB 2 tablets once daily for 2 days, then 1 tablet once daily for 2 days PREDNISONE 20 MG TAB 769343 PREDNISONE Inactive TRUEDRAW LANCING DEVICE MISC Test twice a day dx 250.0 TRUEDRAW LANCING DEVICE MISC LANCET DEVICES Inactive TRUERESULT BLOOD GLUCOSE W/DEVICE KIT test blood sugar twice daily dx 250.00 TRUERESULT BLOOD GLUCOSE W/DEVICE KIT BLOOD GLUCOSE MONITORING SUPPL Inactive FLONASE 50 MCG/ACT SUSP 1 spray each nostril twice daily until bottle empty FLONASE 50 MCG/ACT SUSP 2210889 FLUTICASONE PROPIONATE Inactive VENTOLIN HFA 108 (90 BASE) MCG/ACT AERS 1-2 puffs every 4 hours if needed for cough/congestion VENTOLIN HFA 108 (90 BASE) MCG/ACT AERS ALBUTEROL SULFATE Inactive REQUIP 2 MG TABS Take one tablet at bedtime prn REQUIP 2 MG TABS 325754 ROPINIROLE HCL Inactive SUPER B COMPLEX/VITAMIN C TABS 1 qd SUPER B COMPLEX/ VITAMIN C TABS 33172093086 B COMPLEX-C Inactive TRUEDRAW LANCING DEVICE MISC test blood sugar twice daily dx: 250.00 TRUEDRAW LANCING DEVICE MISC LANCET DEVICES Inactive TRUETEST TEST INVITR STRP test blood sugar twice daily. DX 250.0 TRUETEST TEST INVITR STRP GLUCOSE BLOOD Inactive TRIAMCINOLONE ACETONIDE 0.1 % OINT Apply to affected areas TID for up to 2 weeks TRIAMCINOLONE ACETONIDE 0.1 % OINT 9384697 TRIAMCINOLONE ACETONIDE Inactive PREDNISONE 20 MG TAB 2 tabs daily for 3 days, 1 tab daily for 3 days, 1/2 tab daily for 2 days PREDNISONE 20 MG TAB 618185 PREDNISONE Inactive PREDNISONE 20 MG TAB 2 tabs daily for 3 days, 1 tab daily for 3 days, 1/2 tab daily for 2 days PREDNISONE 20 MG TAB 291103 PREDNISONE Inactive BACTRIM DS 800-160 MG TABS 1 po BID x 7 days BACTRIM DS 800-160 MG TABS 762075 SULFAMETHOXAZOLE-TRIMETHOPRIM Inactive ZITHROMAX 250 MG TAB 2 po today, then 1 po q days 2-5 ZITHROMAX 250 MG TAB 6898920 AZITHROMYCIN Inactive Advance Directives Directive Description Start Date DISCUSSED WITH PATIENT -- NO DECISION MADE Immunizations Vaccine Administration Date Value Standard Description Seasonal influenza vaccine, injectable, containing preservative, for > 3 years old (Afluria, FluLaval, Fluzone, Fluvirin, Fluarix, Agriflu(>=18 yo)) Fluzone (>3 yrs.) [[id number]] Influenza, seasonal, injectable influenza immunization (Flu Vax) has been administered 02/22/2012 influenza virus vaccine, unspecified formulation Seasonal influenza vaccine, injectable, containing preservative, for > 3 years old (Afluria, FluLaval, Fluzone, Fluvirin, Fluarix, Agriflu(>=18 yo)) Fluzone (>3 yrs.) [[id number]] Influenza, seasonal, injectable Vital Signs Date Name [...] Magnesium - Chemistry sodium, serum 143 mmol/L 803-963 9860/01/10 carbon dioxide, venous blood 28.0 mmol/L 21.0-32.0 potassium, serum 4.5 mmol/L 3.5-5.2 chloride, serum 104 mmol/L 98-107 blood glucose 158 mg/dL 65-110 urea nitrogen, blood 23 mg/dL 7-18 creatinine, serum 1.06 mg/dL 0.55-1.30 alanine aminotransferase (SGPT), serum 42 U/L 12-78 aspartate aminotransferase (SGOT), serum 32 U/L 15-37 calcium, serum 9.3 mg/dL 8.5-10.1 bilirubin, serum, total 0.20 mg/dL 0.00-1.00 cholesterol, serum 177 mg/dL 249-763 9559/01/10 triglyceride, serum, fasting 320 mg/dL 30-200 HDL cholesterol, serum 46 mg/dL 32-96 LDL cholesterol, serum 67 mg/dL 0-130 Lab Report: COMPREHENSIVE METABOLIC PANEL, LIPID PANEL, HEMOGLOBIN A1c - Chemistry cholesterol, serum 135 mg/dL 767-991 4552/05/17 HDL cholesterol, serum 41 mg/dL > OR=46 triglyceride, serum, fasting 206 mg/dL <150 LDL cholesterol, serum 53 MG/DL (CALC) mg/dL <130 cholesterol/HDL ratio, serum 3.3 (calc) < OR=5.0 Lab Report: HGBA1C - Chemistry hemoglobin A1C, blood, as % of total hemoglobin 7.4 % 4.3-6.0 sodium, serum 140 mmol/L 846-422 7328/09/07 potassium, serum 4.3 mmol/L 3.5-5.2 chloride, serum [...] <30 Encounters Code Encounter Date Provider Facility CPT-83812 Level 4 Est. Patient 14:29:21 CDT Tu Landeros MD [facility] CPT-74725 Level 4 Est. Patient 09:08:17 BILINGUAL SPEECH THERAPIST Tu Landeros MD [facility] CPT-43140 Level 4 Est. Patient 14:40:19 CDT Tu Landeros MD [facility] CPT-85039 Level 4 Est. Patient 14:06:04 BILINGUAL SPEECH THERAPIST Tu Landeros MD [facility] CPT-13871 Level 3 Est. Patient 14:05:18 BILINGUAL SPEECH THERAPIST Tu Landeros MD [facility] CPT-79044 Level 3 Est. Patient 10:06:54 BILINGUAL SPEECH THERAPIST Miranda Suresh APRN [facility] CPT-02315 Level 4 Est. Patient 13:50:18 BILINGUAL SPEECH THERAPIST Tu Landeros MD [facility] CPT-31234 Level 3 Est. Patient 10:30:04 CDT Tu Landeros MD [facility] CPT-74530 Level 4 Est. Patient 11:03:38 CDT Tu Landeros MD [facility] CPT-98156 Level 3 Est. Patient 10:20:44 CDT Fab Morales DO [facility] CPT-38548 Level 4 Est. Patient 14:38:57 CDT Tu Landeros MD [facility] CPT-01684 Level 4 Est. Patient 14:27:39 BILINGUAL SPEECH THERAPIST Tu Landeros MD [facility] CPT-56041 Level 4 Est. Patient 09:45:25 CDT Tu Landeros MD [facility] CPT-28491 Level 4 Est. Patient 09:05:20 BILINGUAL SPEECH THERAPIST Tu Landeros MD [facility] CPT-29399 Level 4 Est. Patient 14:09:06 CDT Tu Landeros MD [facility] CPT-34214 Level 3 Est. Patient 13:36:54 CDT Tu Landeros MD [facility] CPT-81570 Level 3 Est. Patient 08:59:14 CDT Tu Landeros MD [facility] CPT-21311 Level 3 Est. Patient 13:48:35 CDT Fab Morales DO [facility] CPT-89836 Level 4 Est. Patient 10:05:48 CDT Tu Landeros MD [facility] CPT-52659 Level 3 Est. Patient 13:38:42 CDT Marek BANKS [facility] CPT-76486 Level 5 Est. Patient 08:08:39 CDT Jerrica FRANCIS [facility] CPT-49375 Level 4 Est. Patient 14:23:38 CDT Tu Landeros MD [facility] CPT-14549 Level 3 Est. Patient 11:44:04 CDT Tu Landeros MD [facility] CPT-07110 Level 3 Est. Patient 11:03:20 BILINGUAL SPEECH THERAPIST Tu Landeros MD [facility] CPT-14254 Level 3 Est. Patient 11:03:14 BILINGUAL SPEECH THERAPIST Tu Landeros MD [facility] CPT-30734 Level 3 Est. Patient 12:42:49 CDT Tu Landeros MD [facility] CPT-00084 Level 3 Est. Patient 11:52:06 CDT Tu Landeros MD [facility] CPT-12227 Level 3 Est. Patient 13:58:11 CDT Tu Landeros MD [facility] CPT-02262 Level 3 Est. Patient 17:50:07 CDT Fab Morales DO [facility] CPT-02163 Level 3 Est. Patient 12:06:29 CDT Elvira Cervantes MD, PhD [facility] CPT-70710 Level 3 Est. Patient 15:50:32 CDT Tu Landeros MD [facility] CPT-90553 Level 4 Est. Patient 16:08:29 CDT Tu Landeros MD [facility] CPT-16735 Level 3 Est. Patient 16:04:19 CDT Tu Landeros MD [facility] CPT-71592 Level 3 Est. Patient 11:22:30 BILINGUAL SPEECH THERAPIST Tu Landeros MD [facility] CPT-79528 Level 4 Est. Patient 16:24:02 BILINGUAL SPEECH THERAPIST Tu Landeros MD [facility] CPT-60934 Level 3 Est. Patient 17:21:23 BILINGUAL SPEECH THERAPIST Tu Landeros MD [facility] Procedures Code Procedure Name Date Entry Date Standard Description CPT-G0009 Administration of Pneumococcal Vaccine 15:08:26 CDT CPT-39749 Prevnar 13 Intramuscular Suspension 15:08:26 CDT 10/08 CPT-G0439 [facility] Annual Wellness Exam 14:29:22 CDT CPT-60812 Venipuncture Draw Fee 13:15:35 CDT CPT-12444 Magnesium - LAB USE ONLY 11:14:20 BILINGUAL SPEECH THERAPIST CPT-32056 Lipid - LAB USE ONLY 11:14:20 BILINGUAL SPEECH THERAPIST CPT-67150 HGBA1C - LAB USE ONLY 11:14:20 BILINGUAL SPEECH THERAPIST CPT-36894 CMP - LAB USE ONLY 11:14:19 BILINGUAL SPEECH THERAPIST CPT-52538 CBC - LAB USE ONLY 11:14:19 BILINGUAL SPEECH THERAPIST CPT-89116 Venipuncture Draw Fee 11:14:18 BILINGUAL SPEECH THERAPIST CPT-14083 First Vx - Ix admin for Medicare patients 16:46:52 CDT CPT-77167 Fluzone Preservative Free Intramuscular Suspension 16:46 :51 CDT CPT-50139 CBC - LAB USE ONLY 17:14:46 CDT CPT-93227 HGBA1C - LAB USE ONLY 17:14:46 CDT CPT-80607 Venipuncture Draw Fee 17:14:46 CDT CPT-G0438 Initial Annual Wellness Exam 14:13:04 CDT CPT-03725 Breathing Tx 10:06:54 BILINGUAL SPEECH THERAPIST CPT-73435 Postop F/U Visit 10:02:45 CDT CPT-LR Lesion Removal 09:02:56 CDT CPT-JTINJ Asp/Joint Injection 15:51:27 BILINGUAL SPEECH THERAPIST CPT-OV Office Visit 15:52:02 BILINGUAL SPEECH THERAPIST CPT-OV Office Visit 15:45:11 CDT CPT-000 Give Zostavax 14:09:06 CDT CPT-30616 Administration single or combination vaccine inc oral 15 :19:04 CDT CPT-84242 Zoster Vaccine (Zostavax) 15:19:04 CDT CPT-38177 Administration single or combination vaccine inc oral 20 :51:03 CDT CPT-35142 Influenza split virus > age 3 20:51:03 CDT CPT-91593 No Charge Offi Visit 14:52:03 CDT CPT-OV Office Visit 14:57:43 CDT CPT-OV Office Visit 15:22:32 CDT CPT-99492 Administration single or combination vaccine inc oral 11 :33:15 CDT CPT-59431 Influenza split virus > age 3 11:33:15 CDT
--- OUTSIDE RECORDS SUMMARY | 2018-04-25 16:36 | XMS REPORT | Clinical Summary ---
Author Author Admin, SACHI Organization [employer] Address Unknown Phone Unavailable Allergies, Adverse Reactions, [...] localized, involving lower leg Obesity 278.00 Active uT Landeros MD Obesity , unspecified Pain in [...] ORAL TABS 1 po BID VENLAFAXINE HCL 13428213886 Active Tu Landeros MD Active GLIMEPIRIDE 1 MG ORAL TABS 1 po qd GLIMEPIRIDE 26492691341 Active Tu Landeros MD Active TRUE METRIX BLOOD GLUCOSE TEST INVITR STRP Test blood sugar BID Dx: E11.9 GLUCOSE BLOOD 72590171067 Delores Landeros MD Active TRUE METRIX AIR GLUCOSE METER W/DEVICE KIT Test blood glucose BID Dx: E11.9 BLOOD GLUCOSE MONITORING SUPPL 19980231642 Active Tu Landeros MD Active TRUETEST TEST INVITR STRP test blood sugar twice daily. DX 250.0 GLUCOSE BLOOD 05280323009 No Longer Active Mirna Stanley LPN Active TRUEDRAW LANCING DEVICE MISC test blood sugar twice daily dx: 250.00 LANCET DEVICES 80871468070 No Longer Active Mirna Stanley LPN Active ENALAPRIL MALEATE 20 MG TABS 2 po qd ENALAPRIL MALEATE 33327250171 Active Tu Landeros MD Active SUPER B COMPLEX/VITAMIN C TABS 1 qd B COMPLEX-C 73234339604 No Longer Active Tu Landeros MD Active ASPIRIN EC 81 MG ORAL TBEC 1 po qd ASPIRIN 26892506413 Active Tu Landeros MD Active GLUCOSAMINE 500 MG TABS 2 po qd GLUCOSAMINE Active Tu Landeros MD Active SIMVASTATIN 40 MG TABS 0.5 po qHS SIMVASTATIN 42474730231 Active Tu Landeros MD Active FISH OIL 1000 MG CAPS 1 po qd OMEGA-3 FATTY ACIDS 78838950201 Active Tu Landeros MD Active METFORMIN HCL 1000 MG TABS 1 po BID METFORMIN HCL 66370330964 Active Tu Landeros MD Active KLOR-CON 10 10 MEQ CR-TABS 2 po qd POTASSIUM CHLORIDE 81278764925 Active Tu Landeros MD Active FUROSEMIDE 40 MG TAB 1 po qd FUROSEMIDE 37017876620 Active Tu Landeros MD Active REQUIP 2 MG ORAL TABS 1 po qHS PRN Restless legs ROPINIROLE HCL 18717039300 Active Tu Landeros MD Active GABAPENTIN 100 MG CAPS 1 po BID GABAPENTIN 73717922900 Active Tu Landeros MD Active REQUIP 2 MG TABS Take one tablet at bedtime prn ROPINIROLE HCL 37982035562 No Longer Active Tu Landeros MD Active VENTOLIN HFA 108 (90 BASE) MCG/ACT AERS 1-2 puffs every 4 hours if needed for cough/congestion ALBUTEROL SULFATE 67985613197 No Longer Active Ambika Aden APRN Active ZITHROMAX 250 MG TAB 2 po today, then 1 po q days 2-5 AZITHROMYCIN 23002299574 No Longer Active Miranda Suresh APRN Active FLONASE 50 MCG/ACT SUSP 1 spray each nostril twice daily until bottle empty FLUTICASONE PROPIONATE 96727580145 No Longer Active Tu Landeros MD Active COLACE 100 MG CAP 1 po BID PRN Constipation DOCUSATE SODIUM 73210001368 Active Tu Landeros MD Active TRUERESULT BLOOD GLUCOSE W/DEVICE KIT test blood sugar twice daily dx 250.00 BLOOD GLUCOSE MONITORING SUPPL 02189607413 No Longer Active Tu Landeros MD Active TRUEDRAW LANCING DEVICE MISC Test twice a day dx 250.0 LANCET DEVICES 97786237986 No Longer Active Tu Landeros MD Active PREDNISONE 20 MG TAB 2 tablets once daily for 2 days, then 1 tablet once daily for 2 days PREDNISONE 86536335621 No Longer Active Tu Landeros MD Active DICLOFENAC SODIUM 50 MG TBEC 1 tablet by mouth three times a day as needed DICLOFENAC SODIUM 23371737139 No Longer Active Fab Morales DO Active EMBRACE BLOOD GLUCOSE TEST STRP test blood sugar twice daily DX 250.0 2014 GLUCOSE BLOOD 25892648690 No Longer Active Tu Landeros MD Active TRUETEST TEST STRP test blood sugar three times daily dx: 250.00 GLUCOSE BLOOD 54734383984 No Longer Active Suze Corey VOGEL Active TRUERESULT BLOOD GLUCOSE W/DEVICE KIT use to test blood sugar tid dx: 250.00 BLOOD GLUCOSE MONITORING SUPPL 98870528393 No Longer Active Suze Corey RMA Active ALIGN 4 MG CAPS 1 tid PROBIOTIC PRODUCT 66207799017 No Longer Active Shaun Sy MD Active CIPRO 500 MG TABS 1 bid x 14 days start 09-28-13 CIPROFLOXACIN HCL 00252625166 No Longer Active Shaun Sy MD Active TRAMADOL HCL 50 MG TABS 1-2 tablets every 6 hours as needed for pain TRAMADOL HCL 58383432693 Active Lesli Kellogg APRN Active HYDROCODONE-ACETAMINOPHEN 5-325 MG TABS 1 tab by mouth every 6 hours as needed for pain HYDROCODONE-ACETAMINOPHEN 78609098555 No Longer Active Tu Landeros MD Active OMEPRAZOLE 20 MG CPDR 1 po q a.m. OMEPRAZOLE 07752264295 Active Lesli Kellogg APRN Active GABAPENTIN 100 MG CAPS 1 po bid GABAPENTIN 10735481310 No Longer Active Tu Landeros MD Active B-12 100 MCG TABS Take one by mouth daily CYANOCOBALAMIN 82232913565 No Longer Active Tu Landeros MD Active BACTRIM DS 800-160 MG TABS 1 bid x 14 day start 09-28-13 SULFAMETHOXAZOLE-TRIMETHOPRIM 89912631132 No Longer Active Tu Landeros MD Active CARVEDILOL 12.5 MG TABS 1 po BID CARVEDILOL 78145147453 Active Tu Landeros MD Active TRILIPIX 135 MG CPDR 1 q hs CHOLINE FENOFIBRATE 79719266399 Active Tu Landeros MD Active FENOFIBRATE 145 MG TABS 1 po qd FENOFIBRATE 52177582917 No Longer Active JASPREET Perez Active OMEPRAZOLE 20 MG TBEC 1 PO 30 MIN BEFORE 1ST MEAL OMEPRAZOLE 45502786314 No Longer Active JASPREET Perez Active SIMVASTATIN 40 MG TABS Take one by mouth daily SIMVASTATIN 58602657082 No Longer Active JASPREET Perez Active VENLAFAXINE HCL 75 MG TABS 1 po BID VENLAFAXINE HCL 05967681881 No Longer Active Cuero Norma, RMA Active CIPRO 500 MG TAB 1 tablet by mouth twice daily CIPROFLOXACIN HCL 92183389869 No Longer Active Tu Landeros MD Active VENLAFAXINE HCL 37.5 MG TABS 1 po BID VENLAFAXINE HCL 30766831317 No Longer Active Suze Nicole RMA Active LAMISIL 250 MG TAB 1 po qd TERBINAFINE HCL 57122835118 No Longer Active Tu Landeros MD Active LORTAB 5 5-500 MG TABS 1/2 to 1 tablet by mouth every 4 hours as needed for pain HYDROCODONE-ACETAMINOPHEN 93471725898 No Longer Active Tu Landeros MD Active HYDROCODONE-ACETAMINOPHEN 5-500 MG TABS take one po Q 4-6 hours prn HYDROCODONE-ACETAMINOPHEN 56241230394 No Longer Active Tu Landeros MD Active BACTRIM DS 800-160 MG TABS 1 po BID x 7 days SULFAMETHOXAZOLE-TRIMETHOPRIM 54379580470 No Longer Active Tu Landeros MD Active VENLAFAXINE HCL 75 MG TABS 1 po BID VENLAFAXINE HCL 41694543950 No Longer Active Elvira Cervantes MD PhD Active TRAMADOL HCL 50 MG TABS 1 tablets every 6 hours as needed for pain TRAMADOL HCL 96033932768 No Longer Active Tu Landeros MD Active ACCU-CHEK FASTCLIX LANCETS MISC Use to check bloodsugar three times daily as needed LANCETS 74663844200 No Longer Active Tu Landeros MD Active ACCU-CHEK KEYONA PLUS STRP Use for testing bloodsugars three times daily as needed GLUCOSE BLOOD 99219883360 No Longer Active Tu Landeros MD Active ACCU-CHEK KEYONA PLUS W/DEVICE KIT Use for testing bloodsugars three times daily as needed BLOOD GLUCOSE MONITORING SUPPL 12668908840 No Longer Active Tu Landeros MD Active SPIRONOLACTONE 25 MG TAB 0.5 tablet by mouth daily SPIRONOLACTONE 84285239502 No Longer Active Tu Landeros MD Active ALPRAZOLAM 0.5 MG TABS 1 tab every 6hrs as needed ALPRAZOLAM 53247199920 No Longer Active Tu Landeros MD Active AUGMENTIN 875-125 MG TAB 1 tab by mouth twice daily with food AMOXICILLIN-POT CLAVULANATE 28453119473 No Longer Active Tu Landeros MD Active PREDNISONE 20 MG TAB 2 tabs daily for 3 days, 1 tab daily for 3 days, 1/2 tab daily for 2 days PREDNISONE 91055020868 No Longer Active Tu Landeros MD Active XANAX 0.5 MG TABS 1 tablet every 6 hrs prn ALPRAZOLAM 31265432029 No Longer Active Tu Landeros MD Active PREDNISONE 20 MG TAB 2 tabs daily for 3 days, 1 tab daily for 3 days, 1/2 tab daily for 2 days PREDNISONE 78142760429 No Longer Active Tu Landeros MD Active TRIAMCINOLONE ACETONIDE 0.1 % OINT Apply to affected areas TID for up to 2 weeks TRIAMCINOLONE ACETONIDE 45821647408 No Longer Active Tu Landeros MD Active LORTAB 5 5-500 MG TABS 1/2 to 1 tablet by mouth every 4 hours as needed for pain HYDROCODONE-ACETAMINOPHEN 96400374725 No Longer Active Tu Landeros MD Active MULTIVITAMINS TABS Take one by mouth daily MULTIPLE VITAMIN 87912629743 No Longer Active Tu Landeros MD Active MELATONIN 5 MG TABS Take one by mouth daily MELATONIN 46748570755 No Longer Active Tu Landeros MD Active SOMA 350 MG TAB 1 po q 6 hours prn spasm CARISOPRODOL 06469884981 No Longer Active Tu Landeros MD Active MECLIZINE HCL 25 MG CHEW TAB 1 four times a day as needed for dizziness 08/05 MECLIZINE HCL 80434400403 No Longer Active Fab Morales DO Active ANGEL NIKKOEZAdrianna 2 TEST DISK test tid prn GLUCOSE BLOOD 36265142521 No Longer Active Negra Tyler MICHAEL Active REGLAN 10 MG TAB 1 po TID PRN Nausea METOCLOPRAMIDE HCL 07900157022 No Longer Active Tu Landeros MD Active METFORMIN HCL 500 MG TABS 1 PO BID METFORMIN HCL 50594390871 No Longer Active Tu Landeros MD Active AMBIEN 10 MG TAB 1 tab by mouth at bedtime as needed for sleep ZOLPIDEM TARTRATE 95216584056 No Longer Active Tu Landeros MD Active FLUOXETINE HCL 40 MG CAPS 1 po q day FLUOXETINE HCL 06410752050 No Longer Active Mayra Carmen Active TRILIPIX 135 MG CPDR 1 po qd CHOLINE FENOFIBRATE 86497911303 No Longer Active Tu Landeros MD Active AMBIEN 10 MG TAB 1 tab by mouth at bedtime as needed for sleep AMBIEN 10 MG TAB 631787 ZOLPIDEM TARTRATE Inactive METFORMIN HCL 500 MG TABS 1 PO BID METFORMIN HCL 500 MG TABS 996974 METFORMIN HCL Inactive REGLAN 10 MG TAB 1 po TID PRN Nausea REGLAN 10 MG TAB 853765 METOCLOPRAMIDE HCL Inactive MECLIZINE HCL 25 MG CHEW TAB 1 four times a day as needed for dizziness 08/05 MECLIZINE HCL 25 MG CHEW TAB 155331 MECLIZINE HCL Inactive SOMA 350 MG TAB 1 po q 6 hours prn spasm SOMA 350 MG TAB 577333 CARISOPRODOL Inactive MELATONIN 5 MG TABS Take one by mouth daily MELATONIN 5 MG TABS 602216 MELATONIN Inactive MULTIVITAMINS TABS Take one by mouth daily MULTIVITAMINS TABS MULTIPLE VITAMIN Inactive LORTAB 5 5-500 MG TABS 1/2 to 1 tablet by mouth every 4 hours as needed for pain LORTAB 5 5-500 MG TABS HYDROCODONE- ACETAMINOPHEN Inactive XANAX 0.5 MG TABS 1 tablet every 6 hrs prn XANAX 0.5 MG TABS 330805 ALPRAZOLAM Inactive AUGMENTIN 875-125 MG TAB 1 tab by mouth twice daily with food AUGMENTIN 875-125 MG TAB 997790 AMOXICILLIN-POT CLAVULANATE Inactive ALPRAZOLAM 0.5 MG TABS 1 tab every 6hrs as needed ALPRAZOLAM 0.5 MG TABS 199133 ALPRAZOLAM Inactive SPIRONOLACTONE 25 MG TAB 0.5 tablet by mouth daily SPIRONOLACTONE 25 MG TAB 456663 SPIRONOLACTONE Inactive ACCU-CHEK KEYONA PLUS W/DEVICE KIT Use for testing bloodsugars three times daily as needed ACCU-CHEK KEYONA PLUS W/DEVICE KIT BLOOD GLUCOSE MONITORING SUPPL Inactive ACCU-CHEK KEYONA PLUS STRP Use for testing bloodsugars three times daily as needed ACCU-CHEK KEYONA PLUS STRP GLUCOSE BLOOD Inactive ACCU-CHEK FASTCLIX LANCETS MISC Use to check bloodsugar three times daily as needed ACCU-CHEK FASTCLIX LANCETS MISC 40640888474 LANCETS Inactive TRAMADOL HCL 50 MG TABS 1 tablets every 6 hours as needed for pain TRAMADOL HCL 50 MG TABS 262506 TRAMADOL HCL Inactive VENLAFAXINE HCL 75 MG TABS 1 po BID VENLAFAXINE HCL 75 MG TABS 209742 VENLAFAXINE HCL Inactive HYDROCODONE-ACETAMINOPHEN 5-500 MG TABS take one po Q 4-6 hours prn HYDROCODONE-ACETAMINOPHEN 5-500 MG TABS HYDROCODONE- ACETAMINOPHEN Inactive LORTAB 5 5-500 MG TABS 1/2 to 1 tablet by mouth every 4 hours as needed for pain LORTAB 5 5-500 MG TABS HYDROCODONE- ACETAMINOPHEN Inactive LAMISIL 250 MG TAB 1 po qd LAMISIL 250 MG TAB 997872 TERBINAFINE HCL Inactive VENLAFAXINE HCL 37.5 MG TABS 1 po BID VENLAFAXINE HCL 37.5 MG TABS 451400 VENLAFAXINE HCL Inactive CIPRO 500 MG TAB 1 tablet by mouth twice daily CIPRO 500 MG TAB 447566 CIPROFLOXACIN HCL Inactive VENLAFAXINE HCL 75 MG TABS 1 po BID VENLAFAXINE HCL 75 MG TABS 610569 VENLAFAXINE HCL Inactive SIMVASTATIN 40 MG TABS Take one by mouth daily SIMVASTATIN 40 MG TABS 340361 SIMVASTATIN Inactive OMEPRAZOLE 20 MG TBEC 1 PO 30 MIN BEFORE 1ST MEAL OMEPRAZOLE 20 MG TBEC 451852 OMEPRAZOLE Inactive FENOFIBRATE 145 MG TABS 1 po qd FENOFIBRATE 145 MG TABS 304878 FENOFIBRATE Inactive BACTRIM DS 800-160 MG TABS 1 bid x 14 day start 09-28-13 BACTRIM DS 800-160 MG TABS 706303 SULFAMETHOXAZOLE-TRIMETHOPRIM Inactive B-12 100 MCG TABS Take one by mouth daily B-12 100 MCG TABS CYANOCOBALAMIN Inactive GABAPENTIN 100 MG CAPS 1 po bid GABAPENTIN 100 MG CAPS 456018 GABAPENTIN Inactive HYDROCODONE-ACETAMINOPHEN 5-325 MG TABS 1 tab by mouth every 6 hours as needed for pain HYDROCODONE-ACETAMINOPHEN 5-325 MG TABS 866422 HYDROCODONE-ACETAMINOPHEN Inactive CIPRO 500 MG TABS 1 bid x 14 days start 09-28-13 CIPRO 500 MG TABS 076981 CIPROFLOXACIN HCL Inactive ALIGN 4 MG CAPS [...] as needed DICLOFENAC SODIUM 50 MG TBEC 882496 DICLOFENAC SODIUM Inactive PREDNISONE 20 MG TAB 2 tablets once daily for 2 days, then 1 tablet once daily for 2 days PREDNISONE 20 MG TAB 135987 PREDNISONE Inactive TRUEDRAW LANCING DEVICE MISC Test twice a day dx 250.0 TRUEDRAW LANCING DEVICE MISC LANCET DEVICES Inactive TRUERESULT BLOOD GLUCOSE W/DEVICE KIT test blood sugar twice daily dx 250.00 TRUERESULT BLOOD GLUCOSE W/DEVICE KIT BLOOD GLUCOSE MONITORING SUPPL Inactive FLONASE 50 MCG/ACT SUSP 1 spray each nostril twice daily until bottle empty FLONASE 50 MCG/ACT SUSP 2379976 FLUTICASONE PROPIONATE Inactive VENTOLIN HFA 108 (90 BASE) MCG/ACT AERS 1-2 puffs every 4 hours if needed for cough/congestion VENTOLIN HFA 108 (90 BASE) MCG/ACT AERS ALBUTEROL SULFATE Inactive REQUIP 2 MG TABS Take one tablet at bedtime prn REQUIP 2 MG TABS 858459 ROPINIROLE HCL Inactive SUPER B COMPLEX/VITAMIN C TABS 1 qd SUPER B COMPLEX/ VITAMIN C TABS 50252196106 B COMPLEX-C Inactive TRUEDRAW LANCING DEVICE MISC test blood sugar twice daily dx: 250.00 TRUEDRAW LANCING DEVICE MISC LANCET DEVICES Inactive TRUETEST TEST INVITR STRP test blood sugar twice daily. DX 250.0 TRUETEST TEST INVITR STRP GLUCOSE BLOOD Inactive TRIAMCINOLONE ACETONIDE 0.1 % OINT Apply to affected areas TID for up to 2 weeks TRIAMCINOLONE ACETONIDE 0.1 % OINT 3395702 TRIAMCINOLONE ACETONIDE Inactive PREDNISONE 20 MG TAB 2 tabs daily for 3 days, 1 tab daily for 3 days, 1/2 tab daily for 2 days PREDNISONE 20 MG TAB 578158 PREDNISONE Inactive PREDNISONE 20 MG TAB 2 tabs daily for 3 days, 1 tab daily for 3 days, 1/2 tab daily for 2 days PREDNISONE 20 MG TAB 334377 PREDNISONE Inactive BACTRIM DS 800-160 MG TABS 1 po BID x 7 days BACTRIM DS 800-160 MG TABS 986745 SULFAMETHOXAZOLE-TRIMETHOPRIM Inactive ZITHROMAX 250 MG TAB 2 po today, then 1 po q days 2-5 ZITHROMAX 250 MG TAB 1091490 AZITHROMYCIN Inactive Advance Directives Directive Description Start Date DISCUSSED WITH PATIENT -- NO DECISION MADE Immunizations Vaccine Administration Date Value Standard Description Seasonal influenza vaccine, injectable, containing preservative, for > 3 years old (Afluria, FluLaval, Fluzone, Fluvirin, Fluarix, Agriflu(>=18 yo)) Fluzone (>3 yrs.) [IAJ064] Influenza, seasonal, injectable influenza immunization (Flu Vax) has been administered 02/22/2012 influenza virus vaccine, unspecified formulation Seasonal influenza vaccine, injectable, containing preservative, for > 3 years old (Afluria, FluLaval, Fluzone, Fluvirin, Fluarix, Agriflu(>=18 yo)) Fluzone (>3 yrs.) [ILP087] Influenza, seasonal, injectable Vital Signs Date Name [...] Magnesium - Chemistry sodium, serum 143 mmol/L 514-791 4312/01/10 carbon dioxide, venous blood 28.0 mmol/L 21.0-32.0 potassium, serum 4.5 mmol/L 3.5-5.2 chloride, serum 104 mmol/L 98-107 blood glucose 158 mg/dL 65-110 urea nitrogen, blood 23 mg/dL 7-18 creatinine, serum 1.06 mg/dL 0.55-1.30 alanine aminotransferase (SGPT), serum 42 U/L 12-78 aspartate aminotransferase (SGOT), serum 32 U/L 15-37 calcium, serum 9.3 mg/dL 8.5-10.1 bilirubin, serum, total 0.20 mg/dL 0.00-1.00 cholesterol, serum 177 mg/dL 046-082 5832/01/10 triglyceride, serum, fasting 320 mg/dL 30-200 HDL cholesterol, serum 46 mg/dL 32-96 LDL cholesterol, serum 67 mg/dL 0-130 Lab Report: COMPREHENSIVE METABOLIC PANEL, LIPID PANEL, HEMOGLOBIN A1c - Chemistry cholesterol, serum 135 mg/dL 913-506 7181/05/17 HDL cholesterol, serum 41 mg/dL > OR=46 triglyceride, serum, fasting 206 mg/dL <150 LDL cholesterol, serum 53 MG/DL (CALC) mg/dL <130 cholesterol/HDL ratio, serum 3.3 (calc) < OR=5.0 Lab Report: HGBA1C - Chemistry hemoglobin A1C, blood, as % of total hemoglobin 7.4 % 4.3-6.0 sodium, serum 140 mmol/L 998-503 8612/09/07 potassium, serum 4.3 mmol/L 3.5-5.2 chloride, serum [...] <30 Encounters Code Encounter Date Provider Facility CPT-85322 Level 4 Est. Patient 14:29:21 CDT Tu Landeros MD [facility] CPT-33708 Level 4 Est. Patient 09:08:17 RN CARDI[facility] REHAB Tu Landeros MD [facility] CPT-60149 Level 4 Est. Patient 14:40:19 CDT Tu Landeros MD [facility] CPT-67721 Level 4 Est. Patient 14:06:04 RN CARDIAC REHAB Tu Landeros MD [facility] CPT-65409 Level 3 Est. Patient 14:05:18 RN CARDIAC REHAB Tu Landeros MD [facility] CPT-24999 Level 3 Est. Patient 10:06:54 RN CARDIAC REHAB Mirand[place]inston Suresh APRN [facility] CPT-04317 Level 4 Est. Patient 13:50:18 RN CARDIAC REHAB Tu Landeros MD [facility] CPT-39475 Level 3 Est. Patient 10:30:04 CDT Tu Landeros MD [facility] CPT-84843 Level 4 Est. Patient 11:03:38 CDT Tu Landeros MD [facility] CPT-78530 Level 3 Est. Patient 10:20:44 CDT Fab Morales DO [facility] CPT-98142 Level 4 Est. Patient 14:38:57 CDT Tu Landeros MD [facility] CPT-13783 Level 4 Est. Patient 14:27:39 RN CARDIAC REHAB Tu Landeros MD [facility] CPT-23237 Level 4 Est. Patient 09:45:25 CDT Tu Landeros MD [facility] CPT-73476 Level 4 Est. Patient 09:05:20 RN CARDIAC REHAB Tu Landeros MD [facility] CPT-91484 Level 4 Est. Patient 14:09:06 CDT Tu Landeros MD [facility] CPT-53822 Level 3 Est. Patient 13:36:54 CDT Tu Landeros MD [facility] CPT-26310 Level 3 Est. Patient 08:59:14 CDT Tu Landeros MD [facility] CPT-09445 Level 3 Est. Patient 13:48:35 CDT Fab Morales DO [facility] CPT-49779 Level 4 Est. Patient 10:05:48 CDT Tu Landeros MD [facility] CPT-85036 Level 3 Est. Patient 13:38:42 CDT Marek BANKS [facility] CPT-48228 Level 5 Est. Patient 08:08:39 CDT Piyushrichajanelle Dawsontay FRANCIS [facility] CPT-38551 Level 4 Est. Patient 14:23:38 CDT Tu Landeros MD [facility] CPT-87512 Level 3 Est. Patient 11:44:04 CDT Tu Landeros MD [facility] CPT-98254 Level 3 Est. Patient 11:03:20 RN CARDIAC REHAB Tu Landeros MD [facility] CPT-14402 Level 3 Est. Patient 11:03:14 RN CARDIAC REHAB Tu Landeros MD [facility] CPT-67261 Level 3 Est. Patient 12:42:49 CDT Tu Landeros MD [facility] CPT-70190 Level 3 Est. Patient 11:52:06 CDT Tu Landeros MD [facility] CPT-61770 Level 3 Est. Patient 13:58:11 CDT Tu Landeros MD [facility] CPT-36797 Level 3 Est. Patient 17:50:07 CDT Fab Morales DO [facility] CPT-06880 Level 3 Est. Patient 12:06:29 CDT Elvira Cervantes MD PhD [facility] CPT-09456 Level 3 Est. Patient 15:50:32 CDT Tu Landeros MD [facility] CPT-02919 Level 4 Est. Patient 16:08:29 CDT Tu Landeros MD [facility] CPT-61569 Level 3 Est. Patient 16:04:19 CDT Tu Landeros MD [facility] CPT-67844 Level 3 Est. Patient 11:22:30 RN CARDIAC REHAB Tu Landeros MD [facility] CPT-05405 Level 4 Est. Patient 16:24:02 RN CARDIAC REHAB Tu Landeros MD [facility] CPT-34195 Level 3 Est. Patient 17:21:23 RN CARDIAC REHAB Tu Landeros MD [facility] Procedures Code Procedure Name Date Entry Date Standard Description CPT-G0009 Administration of Pneumococcal Vaccine 15:08:26 CDT CPT-65706 Prevnar 13 Intramuscular Suspension 15:08:26 CDT 10/08 CPT-G0439 [facility] Annual Wellness Exam 14:29:22 CDT CPT-88567 Venipuncture Draw Fee 13:15:35 CDT CPT-18349 Magnesium - LAB USE ONLY 11:14:20 RN CARDIAC REHAB CPT-77343 Lipid - LAB USE ONLY 11:14:20 RN CARDIAC REHAB CPT-73982 HGBA1C - LAB USE ONLY 11:14:20 RN CARDIAC REHAB CPT-29487 CMP - LAB USE ONLY 11:14:19 RN CARDIAC REHAB CPT-88970 CBC - LAB USE ONLY 11:14:19 RN CARDIAC REHAB CPT-43928 Venipuncture Draw Fee 11:14:18 RN CARDIAC REHAB CPT-03462 First Vx - Ix admin for Medicare patients 16:46:52 CDT CPT-33557 Fluzone Preservative Free Intramuscular Suspension 16:46 :51 CDT CPT-24431 CBC - LAB USE ONLY 17:14:46 CDT CPT-46711 HGBA1C - LAB USE ONLY 17:14:46 CDT CPT-28715 Venipuncture Draw Fee 17:14:46 CDT CPT-G0438 Initial Annual Wellness Exam 14:13:04 CDT CPT-42796 Breathing Tx 10:06:54 RN CARDIAC REHAB CPT-35849 Postop F/U Visit 10:02:45 CDT CPT-LR Lesion Removal 09:02:56 CDT CPT-JTINJ Asp/Joint Injection 15:51:27 RN CARDIAC REHAB CPT-OV Office Visit 15:52:02 RN CARDIAC REHAB CPT-OV Office Visit 15:45:11 CDT CPT-000 Give Zostavax 14:09:06 CDT CPT-08304 Administration single or combination vaccine inc oral 15 :19:04 CDT CPT-71195 Zoster Vaccine (Zostavax) 15:19:04 CDT CPT-90506 Administration single or combination vaccine inc oral 20 :51:03 CDT CPT-83775 Influenza split virus > age 3 20:51:03 CDT CPT-85456 No Charge Offi Visit 14:52:03 CDT CPT-OV Office Visit 14:57:43 CDT CPT-OV Office Visit 15:22:32 CDT CPT-12629 Administration single or combination vaccine inc oral 11 :33:15 CDT CPT-35060 Influenza split virus > age 3 11:33:15 CDT
--- OUTSIDE RECORDS SUMMARY | 2018-04-25 16:38 | XMS REPORT | Clinical Summary ---
Author Author Admin, SACHI Organization [employer] Address Unknown Phone Unavailable Allergies, Adverse Reactions, [...] blood sugar BID Dx: E11.9 GLUCOSE BLOOD 12153653045 Active Tu Landeros MD Active TRUE METRIX AIR GLUCOSE METER W/DEVICE KIT Test blood glucose BID Dx: E11.9 BLOOD GLUCOSE MONITORING SUPPL 64574253453 Active Tu Landeros MD Active TRUETEST TEST INVITR STRP test blood sugar twice daily. DX 250.0 GLUCOSE BLOOD 78795433248 No Longer Active Mirna Stanley LPN Active TRUEDRAW LANCING DEVICE MISC test blood sugar twice daily dx: 250.00 LANCET DEVICES 14857183075 No Longer Active Mirna Stanley LPN Active ENALAPRIL MALEATE 20 MG TABS 2 po qd ENALAPRIL MALEATE 52895681829 Active Tu Landeros MD Active SUPER B COMPLEX/VITAMIN C TABS 1 qd B COMPLEX-C 04573682861 No Longer Active Tu Landeros MD Active ASPIRIN EC 81 MG ORAL TBEC 1 po qd ASPIRIN 06245773838 Active Tu Landeros MD Active GLUCOSAMINE 500 MG TABS 2 po qd GLUCOSAMINE Active Tu Landeros MD Active SIMVASTATIN 40 MG TABS 0.5 po qHS SIMVASTATIN 02060996151 Active Tu Landeros MD Active FISH OIL 1000 MG CAPS 1 po qd OMEGA-3 FATTY ACIDS 41480292530 Active Tu Landeros MD Active METFORMIN HCL 1000 MG TABS 1 po BID METFORMIN HCL 87679810772 Active uT Landeros MD Active KLOR-CON 10 10 MEQ CR-TABS 2 po qd POTASSIUM CHLORIDE 94665388684 Active Tu Landeros MD Active FUROSEMIDE 40 MG TAB 1 po qd FUROSEMIDE 22368965430 Active Tu Landeros MD Active REQUIP 2 MG ORAL TABS 1 po qHS PRN Restless legs ROPINIROLE HCL 16740923151 Active Tu Landeros MD Active VENLAFAXINE HCL 37.5 MG TABS 1 po BID VENLAFAXINE HCL 29962177018 Active Tu Landeros MD Active GABAPENTIN 100 MG CAPS 1 po BID GABAPENTIN 07346776706 Active Tu Landeros MD Active REQUIP 2 MG TABS Take one tablet at bedtime prn ROPINIROLE HCL 56620922453 No Longer Active Tu Landeros MD Active VENTOLIN HFA 108 (90 BASE) MCG/ACT AERS 1-2 puffs every 4 hours if needed for cough/congestion ALBUTEROL SULFATE 18146505736 No Longer Active Ambika Aden APRN Active ZITHROMAX 250 MG TAB 2 po today, then 1 po q days 2-5 AZITHROMYCIN 52444518930 No Longer Active Miranda Suresh APRN Active FLONASE 50 MCG/ACT SUSP 1 spray each nostril twice daily until bottle empty FLUTICASONE PROPIONATE 51714165176 No Longer Active Tu Landeros MD Active COLACE 100 MG CAP 1 po BID PRN Constipation DOCUSATE SODIUM 62710387301 Active Tu Landeros MD Active TRUERESULT BLOOD GLUCOSE W/DEVICE KIT test blood sugar twice daily dx 250.00 BLOOD GLUCOSE MONITORING SUPPL 86240858783 No Longer Active Tu Landeros MD Active TRUEDRAW LANCING DEVICE MISC Test twice a day dx 250.0 LANCET DEVICES 81665738443 No Longer Active Tu Landeros MD Active PREDNISONE 20 MG TAB 2 tablets once daily for 2 days, then 1 tablet once daily for 2 days PREDNISONE 00196202785 No Longer Active Tu Landeros MD Active DICLOFENAC SODIUM 50 MG TBEC 1 tablet by mouth three times a day as needed DICLOFENAC SODIUM 21194640572 No Longer Active Fab Morales DO Active EMBRACE BLOOD GLUCOSE TEST STRP test blood sugar twice daily DX 250.0 2014 GLUCOSE BLOOD 88405019464 No Longer Active Tu Landeros MD Active TRUETEST TEST STRP test blood sugar three times daily dx: 250.00 GLUCOSE BLOOD 45222624889 No Longer Active Suzebianca VOGEL Active TRUERESULT BLOOD GLUCOSE W/DEVICE KIT use to test blood sugar tid dx: 250.00 BLOOD GLUCOSE MONITORING SUPPL 38886718397 No Longer Active Suze Corey VOGEL Active ALIGN 4 MG CAPS 1 tid PROBIOTIC PRODUCT 81342675281 No Longer Active Shaun Sy MD Active CIPRO 500 MG TABS 1 bid x 14 days start 09-28-13 CIPROFLOXACIN HCL 35173792067 No Longer Active Shaun Sy MD Active TRAMADOL HCL 50 MG TABS 1-2 tablets every 6 hours as needed for pain TRAMADOL HCL 75164890339 Active Lesli Kellogg APRN Active HYDROCODONE-ACETAMINOPHEN 5-325 MG TABS 1 tab by mouth every 6 hours as needed for pain HYDROCODONE-ACETAMINOPHEN 47577796358 No Longer Active Tu Landeros MD Active OMEPRAZOLE 20 MG CPDR 1 po q a.m. OMEPRAZOLE 74657450258 Active Lesli Fatumashahid PATEL Active GABAPENTIN 100 MG CAPS 1 po bid GABAPENTIN 83745185628 No Longer Active Tu Landeros MD Active B-12 100 MCG TABS Take one by mouth daily CYANOCOBALAMIN 41065446032 No Longer Active Tu Landeros MD Active BACTRIM DS 800-160 MG TABS 1 bid x 14 day start 09-28-13 SULFAMETHOXAZOLE-TRIMETHOPRIM 89655897047 No Longer Active Tu Landeros MD Active CARVEDILOL 12.5 MG TABS 1 po BID CARVEDILOL 17695081243 Active Tu Landeros MD Active TRILIPIX 135 MG CPDR 1 q hs CHOLINE FENOFIBRATE 70189970310 Active Tu Landeros MD Active FENOFIBRATE 145 MG TABS 1 po qd FENOFIBRATE 45767080291 No Longer Active JASPREET Perez Active OMEPRAZOLE 20 MG TBEC 1 PO 30 MIN BEFORE 1ST MEAL OMEPRAZOLE 57335311154 No Longer Active JASPREET Perez Active SIMVASTATIN 40 MG TABS Take one by mouth daily SIMVASTATIN 71894362234 No Longer Active JASPREET Perez Active VENLAFAXINE HCL 75 MG TABS 1 po BID VENLAFAXINE HCL 51713879534 No Longer Active JASPREET Perez Active CIPRO 500 MG TAB 1 tablet by mouth twice daily CIPROFLOXACIN HCL 86048562689 No Longer Active Tu Landeros MD Active VENLAFAXINE HCL 37.5 MG TABS 1 po BID VENLAFAXINE HCL 82870329482 No Longer Active Suze VOGEL Active LAMISIL 250 MG TAB 1 po qd TERBINAFINE HCL 41545012581 No Longer Active Tu Landeros MD Active LORTAB 5 5-500 MG TABS 1/2 to 1 tablet by mouth every 4 hours as needed for pain HYDROCODONE-ACETAMINOPHEN 41454219823 No Longer Active Tu Landeros MD Active HYDROCODONE-ACETAMINOPHEN 5-500 MG TABS take one po Q 4-6 hours prn HYDROCODONE-ACETAMINOPHEN 74925664957 No Longer Active Tu Landeros MD Active BACTRIM DS 800-160 MG TABS 1 po BID x 7 days SULFAMETHOXAZOLE-TRIMETHOPRIM 06419803093 No Longer Active Tu Landeros MD Active VENLAFAXINE HCL 75 MG TABS 1 po BID VENLAFAXINE HCL 70973849642 No Longer Active Elvira Cervantes MD PhD Active TRAMADOL HCL 50 MG TABS 1 tablets every 6 hours as needed for pain TRAMADOL HCL 31419215868 No Longer Active Tu Landeros MD Active ACCU-CHEK FASTCLIX LANCETS MISC Use to check bloodsugar three times daily as needed LANCETS 94399168842 No Longer Active Tu Landeros MD Active ACCU-CHEK KEYONA PLUS STRP Use for testing bloodsugars three times daily as needed GLUCOSE BLOOD 77162016976 No Longer Active Tu Landeros MD Active ACCU-CHEK KEYONA PLUS W/DEVICE KIT Use for testing bloodsugars three times daily as needed BLOOD GLUCOSE MONITORING SUPPL 93917337881 No Longer Active Tu Landeros MD Active SPIRONOLACTONE 25 MG TAB 0.5 tablet by mouth daily SPIRONOLACTONE 46509456191 No Longer Active Tu Landeros MD Active ALPRAZOLAM 0.5 MG TABS 1 tab every 6hrs as needed ALPRAZOLAM 49550947738 No Longer Active Tu Landeros MD Active AUGMENTIN 875-125 MG TAB 1 tab by mouth twice daily with food AMOXICILLIN-POT CLAVULANATE 07186287527 No Longer Active Tu Landeros MD Active PREDNISONE 20 MG TAB 2 tabs daily for 3 days, 1 tab daily for 3 days, 1/2 tab daily for 2 days PREDNISONE 58979721383 No Longer Active Tu Landeros MD Active XANAX 0.5 MG TABS 1 tablet every 6 hrs prn ALPRAZOLAM 28312257219 No Longer Active Tu Landeros MD Active PREDNISONE 20 MG TAB 2 tabs daily for 3 days, 1 tab daily for 3 days, 1/2 tab daily for 2 days PREDNISONE 20210953495 No Longer Active Tu Landeros MD Active TRIAMCINOLONE ACETONIDE 0.1 % OINT Apply to affected areas TID for up to 2 weeks TRIAMCINOLONE ACETONIDE 38691186180 No Longer Active Tu Landeros MD Active LORTAB 5 5-500 MG TABS 1/2 to 1 tablet by mouth every 4 hours as needed for pain HYDROCODONE-ACETAMINOPHEN 79974856171 No Longer Active Tu Landeros MD Active MULTIVITAMINS TABS Take one by mouth daily MULTIPLE VITAMIN 51748750008 No Longer Active Tu Landeros MD Active MELATONIN 5 MG TABS Take one by mouth daily MELATONIN 87976271094 No Longer Active Tu Landeros MD Active SOMA 350 MG TAB 1 po q 6 hours prn spasm CARISOPRODOL 00268424007 No Longer Active Tu Landeros MD Active MECLIZINE HCL 25 MG CHEW TAB 1 four times a day as needed for dizziness 08/05 MECLIZINE HCL 73614773963 No Longer Active Fab Morales DO Active ANGEL BREEZE 2 TEST DISK test tid prn GLUCOSE BLOOD 32706499085 No Longer Active Negra Scott RN Active REGLAN 10 MG TAB 1 po TID PRN Nausea METOCLOPRAMIDE HCL 43188137022 No Longer Active Tu Landeros MD Active METFORMIN HCL 500 MG TABS 1 PO BID METFORMIN HCL 45766449473 No Longer Active Tu Landeros MD Active AMBIEN 10 MG TAB 1 tab by mouth at bedtime as needed for sleep ZOLPIDEM TARTRATE 66852505969 No Longer Active Tu Landeros MD Active FLUOXETINE HCL 40 MG CAPS 1 po q day FLUOXETINE HCL 59716797200 No Longer Active Mayra Terry Active TRILIPIX 135 MG CPDR 1 po qd CHOLINE FENOFIBRATE 09380405155 No Longer Active Tu Landeros MD Active AMBIEN 10 MG TAB 1 tab by mouth at bedtime as needed for sleep AMBIEN 10 MG TAB 108161 ZOLPIDEM TARTRATE Inactive METFORMIN HCL 500 MG TABS 1 PO BID METFORMIN HCL 500 MG TABS 442489 METFORMIN HCL Inactive REGLAN 10 MG TAB 1 po TID PRN Nausea REGLAN 10 MG TAB 830067 METOCLOPRAMIDE HCL Inactive MECLIZINE HCL 25 MG CHEW TAB 1 four times a day as needed for dizziness 08/05 MECLIZINE HCL 25 MG CHEW TAB 101748 MECLIZINE HCL Inactive SOMA 350 MG TAB 1 po q 6 hours prn spasm SOMA 350 MG TAB 624512 CARISOPRODOL Inactive MELATONIN 5 MG TABS Take one by mouth daily MELATONIN 5 MG TABS 380554 MELATONIN Inactive MULTIVITAMINS TABS Take one by mouth daily MULTIVITAMINS TABS MULTIPLE VITAMIN Inactive LORTAB 5 5-500 MG TABS 1/2 to 1 tablet by mouth every 4 hours as needed for pain LORTAB 5 5-500 MG TABS HYDROCODONE- ACETAMINOPHEN Inactive XANAX 0.5 MG TABS 1 tablet every 6 hrs prn XANAX 0.5 MG TABS 205719 ALPRAZOLAM Inactive AUGMENTIN 875-125 MG TAB 1 tab by mouth twice daily with food AUGMENTIN 875-125 MG TAB 600704 AMOXICILLIN-POT CLAVULANATE Inactive ALPRAZOLAM 0.5 MG TABS 1 tab every 6hrs as needed ALPRAZOLAM 0.5 MG TABS 289588 ALPRAZOLAM Inactive SPIRONOLACTONE 25 MG TAB 0.5 tablet by mouth daily SPIRONOLACTONE 25 MG TAB 168875 SPIRONOLACTONE Inactive ACCU-CHEK KEYONA PLUS W/DEVICE KIT Use for testing bloodsugars three times daily as needed ACCU-CHEK KEYONA PLUS W/DEVICE KIT BLOOD GLUCOSE MONITORING SUPPL Inactive ACCU-CHEK KEYONA PLUS STRP Use for testing bloodsugars three times daily as needed ACCU-CHEK KEYONA PLUS STRP GLUCOSE BLOOD Inactive ACCU-CHEK FASTCLIX LANCETS MISC Use to check bloodsugar three times daily as needed ACCU-CHEK FASTCLIX LANCETS MISC 06962278242 LANCETS Inactive TRAMADOL HCL 50 MG TABS 1 tablets every 6 hours as needed for pain TRAMADOL HCL 50 MG TABS 237491 TRAMADOL HCL Inactive VENLAFAXINE HCL 75 MG TABS 1 po BID VENLAFAXINE HCL 75 MG TABS 595624 VENLAFAXINE HCL Inactive HYDROCODONE-ACETAMINOPHEN 5-500 MG TABS take one po Q 4-6 hours prn HYDROCODONE-ACETAMINOPHEN 5-500 MG TABS HYDROCODONE- ACETAMINOPHEN Inactive LORTAB 5 5-500 MG TABS 1/2 to 1 tablet by mouth every 4 hours as needed for pain LORTAB 5 5-500 MG TABS HYDROCODONE- ACETAMINOPHEN Inactive LAMISIL 250 MG TAB 1 po qd LAMISIL 250 MG TAB 996695 TERBINAFINE HCL Inactive VENLAFAXINE HCL 37.5 MG TABS 1 po BID VENLAFAXINE HCL 37.5 MG TABS 534183 VENLAFAXINE HCL Inactive CIPRO 500 MG TAB 1 tablet by mouth twice daily CIPRO 500 MG TAB 153971 CIPROFLOXACIN HCL Inactive VENLAFAXINE HCL 75 MG TABS 1 po BID VENLAFAXINE HCL 75 MG TABS 773939 VENLAFAXINE HCL Inactive SIMVASTATIN 40 MG TABS Take one by mouth daily SIMVASTATIN 40 MG TABS 397388 SIMVASTATIN Inactive OMEPRAZOLE 20 MG TBEC 1 PO 30 MIN BEFORE 1ST MEAL OMEPRAZOLE 20 MG TBEC 921663 OMEPRAZOLE Inactive FENOFIBRATE 145 MG TABS 1 po qd FENOFIBRATE 145 MG TABS 978406 FENOFIBRATE Inactive BACTRIM DS 800-160 MG TABS 1 bid x 14 day start 09-28-13 BACTRIM DS 800-160 MG TABS 406032 SULFAMETHOXAZOLE-TRIMETHOPRIM Inactive B-12 100 MCG TABS Take one by mouth daily B-12 100 MCG TABS CYANOCOBALAMIN Inactive GABAPENTIN 100 MG CAPS 1 po bid GABAPENTIN 100 MG CAPS 663849 GABAPENTIN Inactive HYDROCODONE-ACETAMINOPHEN 5-325 MG TABS 1 tab by mouth every 6 hours as needed for pain HYDROCODONE-ACETAMINOPHEN 5-325 MG TABS 037519 HYDROCODONE-ACETAMINOPHEN Inactive CIPRO 500 MG TABS 1 bid x 14 days start 09-28-13 CIPRO 500 MG TABS 626956 CIPROFLOXACIN HCL Inactive ALIGN 4 MG CAPS [...] as needed DICLOFENAC SODIUM 50 MG [facility] 998582 DICLOFENAC SODIUM Inactive PREDNISONE 20 MG TAB 2 tablets once daily for 2 days, then 1 tablet once daily for 2 days PREDNISONE 20 MG TAB 695769 PREDNISONE Inactive TRUEDRAW LANCING DEVICE MISC Test twice a day dx 250.0 TRUEDRAW LANCING DEVICE MISC LANCET DEVICES Inactive TRUERESULT BLOOD GLUCOSE W/DEVICE KIT test blood sugar twice daily dx 250.00 TRUERESULT BLOOD GLUCOSE W/DEVICE KIT BLOOD GLUCOSE MONITORING SUPPL Inactive FLONASE 50 MCG/ACT SUSP 1 spray each nostril twice daily until bottle empty FLONASE 50 MCG/ACT SUSP 1232530 FLUTICASONE PROPIONATE Inactive VENTOLIN HFA 108 (90 BASE) MCG/ACT AERS 1-2 puffs every 4 hours if needed for cough/congestion VENTOLIN HFA 108 (90 BASE) MCG/ACT AERS ALBUTEROL SULFATE Inactive REQUIP 2 MG TABS Take one tablet at bedtime prn REQUIP 2 MG TABS 935717 ROPINIROLE HCL Inactive SUPER B COMPLEX/VITAMIN C TABS 1 qd SUPER B COMPLEX/ VITAMIN C TABS 80706181475 B COMPLEX-C Inactive TRUEDRAW LANCING DEVICE MISC test blood sugar twice daily dx: 250.00 TRUEDRAW LANCING DEVICE MISC LANCET DEVICES Inactive TRUETEST TEST INVITR STRP test blood sugar twice daily. DX 250.0 TRUETEST TEST INVITR STRP GLUCOSE BLOOD Inactive TRIAMCINOLONE ACETONIDE 0.1 % OINT Apply to affected areas TID for up to 2 weeks TRIAMCINOLONE ACETONIDE 0.1 % OINT 8156595 TRIAMCINOLONE ACETONIDE Inactive PREDNISONE 20 MG TAB 2 tabs daily for 3 days, 1 tab daily for 3 days, 1/2 tab daily for 2 days PREDNISONE 20 MG TAB 294817 PREDNISONE Inactive PREDNISONE 20 MG TAB 2 tabs daily for 3 days, 1 tab daily for 3 days, 1/2 tab daily for 2 days PREDNISONE 20 MG TAB 293559 PREDNISONE Inactive BACTRIM DS 800-160 MG TABS 1 po BID x 7 days BACTRIM DS 800-160 MG TABS 002980 SULFAMETHOXAZOLE-TRIMETHOPRIM Inactive ZITHROMAX 250 MG TAB 2 po today, then 1 po q days 2-5 ZITHROMAX 250 MG TAB 4542259 AZITHROMYCIN Inactive Advance Directives Directive Description Start Date DISCUSSED WITH PATIENT -- NO DECISION MADE Immunizations Vaccine Administration Date Value Standard Description Seasonal influenza vaccine, injectable, containing preservative, for > 3 years old (Afluria, FluLaval, Fluzone, Fluvirin, Fluarix, Agriflu(>=18 yo)) Fluzone (>3 yrs.) [SSJ991] Influenza, seasonal, injectable influenza immunization (Flu Vax) has been administered 02/22/2012 influenza virus vaccine, unspecified formulation Seasonal influenza vaccine, injectable, containing preservative, for > 3 years old (Afluria, FluLaval, Fluzone, Fluvirin, Fluarix, Agriflu(>=18 yo)) Fluzone (>3 yrs.) [[id number]] Influenza, seasonal, injectable Vital Signs Date Name [...] Magnesium - Chemistry sodium, serum 143 mmol/L 848-378 4160/01/10 carbon dioxide, venous blood 28.0 mmol/L 21.0-32.0 potassium, serum 4.5 mmol/L 3.5-5.2 chloride, serum 104 mmol/L 98-107 blood glucose 158 mg/dL 65-110 urea nitrogen, blood 23 mg/dL 7-18 creatinine, serum 1.06 mg/dL 0.55-1.30 alanine aminotransferase (SGPT), serum 42 U/L 12-78 aspartate aminotransferase (SGOT), serum 32 U/L 15-37 calcium, serum 9.3 mg/dL 8.5-10.1 bilirubin, serum, total 0.20 mg/dL 0.00-1.00 cholesterol, serum 177 mg/dL 534-164 7779/01/10 triglyceride, serum, fasting 320 mg/dL 30-200 HDL cholesterol, serum 46 mg/dL 32-96 LDL cholesterol, serum 67 mg/dL 0-130 Lab Report: HGBA1C - Chemistry hemoglobin A1C, blood, as % of total hemoglobin 7.4 % 4.3-6.0 sodium, serum 140 mmol/L 022-936 3527/09/07 potassium, serum 4.3 mmol/L 3.5-5.2 chloride, serum [...] <30 Encounters Code Encounter Date Provider Facility CPT-20476 Level 4 Est. Patient 09:08:17 STEAM TABLE WORKER Tu Landeros MD [facility] CPT-71341 Level 4 Est. Patient 14:40:19 CDT Tu Landeros MD [facility] CPT-53234 Level 4 Est. Patient 14:06:04 STEAM TABLE WORKER Tu Landeros MD [facility] CPT-95501 Level 3 Est. Patient 14:05:18 STEAM TABLE WORKER Tu Landeros MD [facility] CPT-27150 Level 3 Est. Patient 10:06:54 STEAM TABLE WORKER [facility] Level 4 Est. Patient 13:50:18 STEAM TABLE WORKER Tu Landeros MD [facility] CPT-95509 Level 3 Est. Patient 10:30:04 CDT Tu Landeros MD [facility] CPT-48691 Level 4 Est. Patient 11:03:38 CDT Tu Landeros MD [facility] CPT-10321 Level 3 Est. Patient 10:20:44 CDT Fab Morales DO [facility] CPT-53630 Level 4 Est. Patient 14:38:57 CDT Tu Landeros MD [facility] CPT-12101 Level 4 Est. Patient 14:27:39 STEAM TABLE WORKER Tu Landeros MD [facility] CPT-66830 Level 4 Est. Patient 09:45:25 CDT Tu Landeros MD [facility] CPT-51753 Level 4 Est. Patient 09:05:20 STEAM TABLE WORKER Tu Landeros MD [facility] CPT-55931 Level 4 Est. Patient 14:09:06 CDT Tu Landeros MD [facility] CPT-25324 Level 3 Est. Patient 13:36:54 CDT Tu Landeros MD [facility] CPT-29308 Level 3 Est. Patient 08:59:14 CDT Tu Landeros MD [facility] CPT-65482 Level 3 Est. Patient 13:48:35 CDT Fab Morales DO [facility] CPT-03792 Level 4 Est. Patient 10:05:48 CDT Tu Landeros MD [facility] CPT-33034 Level 3 Est. Patient 13:38:42 CDT Marek BANKS [facility] CPT-34962 Level 5 Est. Patient 08:08:39 CDT Jerrica FRANCIS [facility] CPT-96817 Level 4 Est. Patient 14:23:38 CDT Tu Landeros MD [facility] CPT-66929 Level 3 Est. Patient 11:44:04 CDT Tu Landeros MD [facility] CPT-57047 Level 3 Est. Patient 11:03:20 STEAM TABLE WORKER Tu Landeros MD [facility] CPT-49202 Level 3 Est. Patient 11:03:14 STEAM TABLE WORKER Tu Landeros MD [facility] CPT-02857 Level 3 Est. Patient 12:42:49 CDT Tu Landeros MD [facility] CPT-84163 Level 3 Est. Patient 11:52:06 CDT Tu Landeros MD [facility] CPT-37321 Level 3 Est. Patient 13:58:11 CDT Tu Landeros MD [facility] CPT-22704 Level 3 Est. Patient 17:50:07 CDT Fab Morales DO [facility] CPT-16827 Level 3 Est. Patient 12:06:29 CDT Elvira Cervantes MD PhD [facility] CPT-49564 Level 3 Est. Patient 15:50:32 CDT Tu Landeros MD [facility] CPT-66363 Level 4 Est. Patient 16:08:29 CDT Tu Landeros MD [facility] CPT-79757 Level 3 Est. Patient 16:04:19 CDT Tu Landeros MD [facility] CPT-80534 Level 3 Est. Patient 11:22:30 STEAM TABLE WORKER Tu Landeros MD [facility] CPT-26852 Level 4 Est. Patient 16:24:02 STEAM TABLE WORKER Tu Landeros MD [facility] CPT-43610 Level 3 Est. Patient 17:21:23 STEAM TABLE WORKER Tu Landeros MD [facility] Procedures Code Procedure Name Date Entry Date Standard Description CPT-55361 Magnesium - LAB USE ONLY 11:14:20 STEAM TABLE WORKER CPT-60451 Lipid - LAB USE ONLY 11:14:20 STEAM TABLE WORKER CPT-47094 HGBA1C - LAB USE ONLY 11:14:20 STEAM TABLE WORKER CPT-10555 CMP - LAB USE ONLY 11:14:19 STEAM TABLE WORKER CPT-70758 CBC - LAB USE ONLY 11:14:19 STEAM TABLE WORKER CPT-36619 Venipuncture Draw Fee 11:14:18 STEAM TABLE WORKER CPT-80924 First Vx - Ix admin for Medicare patients 16:46:52 CDT CPT-47733 Fluzone Preservative Free Intramuscular Suspension 16:46 :51 CDT CPT-98474 CBC - LAB USE ONLY 17:14:46 CDT CPT-44829 HGBA1C - LAB USE ONLY 17:14:46 CDT CPT-23437 Venipuncture Draw Fee 17:14:46 CDT CPT-G0438 Initial Annual Wellness Exam 14:13:04 CDT CPT-50315 Breathing Tx 10:06:54 STEAM TABLE WORKER CPT-97331 Postop F/U Visit 10:02:45 CDT CPT-LR Lesion Removal 09:02:56 CDT CPT-JTINJ Asp/Joint Injection 15:51:27 STEAM TABLE WORKER CPT-OV Office Visit 15:52:02 STEAM TABLE WORKER CPT-OV Office Visit 15:45:11 CDT CPT-000 Give Zostavax 14:09:06 CDT CPT-85329 Administration single or combination vaccine inc oral 15 :19:04 CDT CPT-88855 Zoster Vaccine (Zostavax) 15:19:04 CDT CPT-06289 Administration single or combination vaccine inc oral 20 :51:03 CDT CPT-91557 Influenza split virus > age 3 20:51:03 CDT CPT-02103 No Charge Offi Visit 14:52:03 CDT CPT-OV Office Visit 14:57:43 CDT CPT-OV Office Visit 15:22:32 CDT CPT-98183 Administration single or combination vaccine inc oral 11 :33:15 CDT CPT-85785 Influenza split virus > age 3 11:33:15 CDT
--- OUTSIDE RECORDS SUMMARY | 2018-04-25 16:39 | XMS REPORT | Clinical Summary ---
Author Author Admin, SACHI Organization [facility] Address Unknown Phone Unavailable Allergies, Adverse Reactions, [...] reflux Restless leg syndrome 333.94 Active Tu Landerso MD Restless legs syndrome (RLS) Open wound [...] Inactive Tu Landeros MD [facility] ICD-724.3 Inactive uT Landeros MD 2012 SHOULDER PAIN, LEFT ICD-719.41 [...] MG ORAL TABS 1 po qd CANAGLIFLOZIN 84258766713 Active Tu Landeros MD Active GLIPIZIDE 5 MG ORAL TABS 1 po qd GLIPIZIDE 85233020758 No Longer Active Tu Landeros MD Active VENLAFAXINE HCL 75 MG ORAL TABS 1 po BID VENLAFAXINE HCL 65186505347 Active Tu Landeros MD Active GLIMEPIRIDE 1 MG ORAL TABS 1 po qd GLIMEPIRIDE 93593726644 No Longer Active Tu Landeros MD Active TRUE METRIX BLOOD GLUCOSE TEST INVITR STRP Test blood sugar BID Dx: E11.9 GLUCOSE BLOOD 14441092285 Active Tu Landeros MD Active TRUE METRIX AIR GLUCOSE METER W/DEVICE KIT Test blood glucose BID Dx: E11.9 BLOOD GLUCOSE MONITORING SUPPL 79774520906 Active Tu Landeros MD Active TRUETEST TEST INVITR STRP test blood sugar twice daily. DX 250.0 GLUCOSE BLOOD 03477709645 No Longer Active Mirna Stanley LPN Active TRUEDRAW LANCING DEVICE MISC test blood sugar twice daily dx: 250.00 LANCET DEVICES 26333453712 No Longer Active Mirna Stanley LPN Active ENALAPRIL MALEATE 20 MG TABS 2 po qd ENALAPRIL MALEATE 23172193034 Active Tu Landeros MD Active SUPER B COMPLEX/VITAMIN C TABS 1 qd B COMPLEX-C 26293387734 No Longer Active Tu Landeros MD Active ASPIRIN EC 81 MG ORAL TBEC 1 po qd ASPIRIN 00209988089 Active Tu Landeros MD Active GLUCOSAMINE 500 MG TABS 2 po qd GLUCOSAMINE Active Tu Landeros MD Active SIMVASTATIN 40 MG TABS 0.5 po qHS SIMVASTATIN 52680360986 Active Tu Landeros MD Active FISH OIL 1000 MG CAPS 1 po qd OMEGA-3 FATTY ACIDS 20550833209 Active Tu Landeros MD Active METFORMIN HCL 1000 MG TABS 1 po BID METFORMIN HCL 54644649203 Active Tu Landeros MD Active KLOR-CON 10 10 MEQ CR-TABS 2 po qd POTASSIUM CHLORIDE 93865499983 Active Tu Landeros MD Active FUROSEMIDE 40 MG TAB 1 po qd FUROSEMIDE 90390156451 Active Tu Landeros MD Active REQUIP 2 MG ORAL TABS 1 po qHS PRN Restless legs ROPINIROLE HCL 23970424747 Active Tu Landeros MD Active GABAPENTIN 100 MG CAPS 1 po BID GABAPENTIN 09840244089 Active Tu Landeros MD Active REQUIP 2 MG TABS Take one tablet at bedtime prn ROPINIROLE HCL 24803459332 No Longer Active Tu Landeros MD Active VENTOLIN HFA 108 (90 BASE) MCG/ACT AERS 1-2 puffs every 4 hours if needed for cough/congestion ALBUTEROL SULFATE 33614103438 No Longer Active Ambika Aden APRN Active ZITHROMAX 250 MG TAB 2 po today, then 1 po q days 2-5 AZITHROMYCIN 15117023167 No Longer Active Miranda Suresh APRN Active FLONASE 50 MCG/ACT SUSP 1 spray each nostril twice daily until bottle empty FLUTICASONE PROPIONATE 54735581471 No Longer Active Tu Landeros MD Active COLACE 100 MG CAP 1 po BID PRN Constipation DOCUSATE SODIUM 16130083975 Active Tu Landeros MD Active TRUERESULT BLOOD GLUCOSE W/DEVICE KIT test blood sugar twice daily dx 250.00 BLOOD GLUCOSE MONITORING SUPPL 13686068347 No Longer Active Tu Landeros MD Active TRUEDRAW LANCING DEVICE MISC Test twice a day dx 250.0 LANCET DEVICES 37248074000 No Longer Active Tu Landeros MD Active PREDNISONE 20 MG TAB 2 tablets once daily for 2 days, then 1 tablet once daily for 2 days PREDNISONE 37757480232 No Longer Active Tu Landeros MD Active DICLOFENAC SODIUM 50 MG TBEC 1 tablet by mouth three times a day as needed DICLOFENAC SODIUM 02236646125 No Longer Active Fab Morales DO Active EMBRACE BLOOD GLUCOSE TEST STRP test blood sugar twice daily DX 250.0 2014 GLUCOSE BLOOD 34671466930 No Longer Active Tu Landeros MD Active TRUETEST TEST STRP test blood sugar three times daily dx: 250.00 GLUCOSE BLOOD 24865986581 No Longer Active Suze VOGEL Active TRUERESULT BLOOD GLUCOSE W/DEVICE KIT use to test blood sugar tid dx: 250.00 BLOOD GLUCOSE MONITORING SUPPL 24478974555 No Longer Active Suze Nicole RMA Active ALIGN 4 MG CAPS 1 tid PROBIOTIC PRODUCT 53022660057 No Longer Active Shaun Sy MD Active CIPRO 500 MG TABS 1 bid x 14 days start 09-28-13 CIPROFLOXACIN HCL 45938557629 No Longer Active Shaun Sy MD Active TRAMADOL HCL 50 MG TABS 1-2 tablets every 6 hours as needed for pain TRAMADOL HCL 62544468151 Active Tu Landeros MD Active HYDROCODONE-ACETAMINOPHEN 5-325 MG TABS 1 tab by mouth every 6 hours as needed for pain HYDROCODONE-ACETAMINOPHEN 73365445437 No Longer Active Tu Landeros MD Active OMEPRAZOLE 20 MG CPDR 1 po q a.m. OMEPRAZOLE 18084690372 Active Lesli Kellogg APRN Active GABAPENTIN 100 MG CAPS 1 po bid GABAPENTIN 02523300957 No Longer Active Tu Landeros MD Active B-12 100 MCG TABS Take one by mouth daily CYANOCOBALAMIN 41446299221 No Longer Active Tu Landeros MD Active BACTRIM DS 800-160 MG TABS 1 bid x 14 day start 09-28-13 SULFAMETHOXAZOLE-TRIMETHOPRIM 46640134682 No Longer Active Tu Landeros MD Active CARVEDILOL 12.5 MG TABS 1 po BID CARVEDILOL 93483457321 Active Tu Landeros MD Active TRILIPIX 135 MG CPDR 1 q hs CHOLINE FENOFIBRATE 54570039863 Active Tu Landeros MD Active FENOFIBRATE 145 MG TABS 1 po qd FENOFIBRATE 82535747802 No Longer Active JASPREET Perez Active OMEPRAZOLE 20 MG TBEC 1 PO 30 MIN BEFORE 1ST MEAL OMEPRAZOLE 10528149964 No Longer Active JASPREET Perez Active SIMVASTATIN 40 MG TABS Take one by mouth daily SIMVASTATIN 60115632069 No Longer Active Gustavo NormaNURYSCandido Active VENLAFAXINE HCL 75 MG TABS 1 po BID VENLAFAXINE HCL 01348769599 No Longer Active Gustavo [place] RMA Active CIPRO 500 MG TAB 1 tablet by mouth twice daily CIPROFLOXACIN HCL 74222374561 No Longer Active Tu Landeros MD Active VENLAFAXINE HCL 37.5 MG TABS 1 po BID VENLAFAXINE HCL 80927701808 No Longer Active Suze Corey RMA Active LAMISIL 250 MG TAB 1 po qd TERBINAFINE HCL 47979417018 No Longer Active Tu Landeros MD Active LORTAB 5 5-500 MG TABS 1/2 to 1 tablet by mouth every 4 hours as needed for pain HYDROCODONE-ACETAMINOPHEN 98162226611 No Longer Active Tu Landeros MD Active HYDROCODONE-ACETAMINOPHEN 5-500 MG TABS take one po Q 4-6 hours prn HYDROCODONE-ACETAMINOPHEN 38655363445 No Longer Active Tu Landeros MD Active BACTRIM DS 800-160 MG TABS 1 po BID x 7 days SULFAMETHOXAZOLE-TRIMETHOPRIM 23647878722 No Longer Active Tu Landeros MD Active VENLAFAXINE HCL 75 MG TABS 1 po BID VENLAFAXINE HCL 89089326145 No Longer Active Elvira Cervantes MD PhD Active TRAMADOL HCL 50 MG TABS 1 tablets every 6 hours as needed for pain TRAMADOL HCL 86872430701 No Longer Active Tu Landeros MD Active ACCU-CHEK FASTCLIX LANCETS MISC Use to check bloodsugar three times daily as needed LANCETS 01318687195 No Longer Active Tu Landeros MD Active ACCU-CHEK KEYONA PLUS STRP Use for testing bloodsugars three times daily as needed GLUCOSE BLOOD 29708058913 No Longer Active Tu Landeros MD Active ACCU-CHEK KEYONA PLUS W/DEVICE KIT Use for testing bloodsugars three times daily as needed BLOOD GLUCOSE MONITORING SUPPL 87224626376 No Longer Active Tu Landeros MD Active SPIRONOLACTONE 25 MG TAB 0.5 tablet by mouth daily SPIRONOLACTONE 22456533925 No Longer Active Tu Landeros MD Active ALPRAZOLAM 0.5 MG TABS 1 tab every 6hrs as needed ALPRAZOLAM 39955408087 No Longer Active Tu Landeros MD Active AUGMENTIN 875-125 MG TAB 1 tab by mouth twice daily with food AMOXICILLIN-POT CLAVULANATE 72054249075 No Longer Active Tu Landeros MD Active PREDNISONE 20 MG TAB 2 tabs daily for 3 days, 1 tab daily for 3 days, 1/2 tab daily for 2 days PREDNISONE 99399362882 No Longer Active Tu Landeros MD Active XANAX 0.5 MG TABS 1 tablet every 6 hrs prn ALPRAZOLAM 63817470714 No Longer Active Tu Landeros MD Active PREDNISONE 20 MG TAB 2 tabs daily for 3 days, 1 tab daily for 3 days, 1/2 tab daily for 2 days PREDNISONE 25581805376 No Longer Active Tu Landeros MD Active TRIAMCINOLONE ACETONIDE 0.1 % OINT Apply to affected areas TID for up to 2 weeks TRIAMCINOLONE ACETONIDE 74177656452 No Longer Active Tu Landeros MD Active LORTAB 5 5-500 MG TABS 1/2 to 1 tablet by mouth every 4 hours as needed for pain HYDROCODONE-ACETAMINOPHEN 68846836035 No Longer Active Tu Landeros MD Active MULTIVITAMINS TABS Take one by mouth daily MULTIPLE VITAMIN 54299338544 No Longer Active Tu Landeros MD Active MELATONIN 5 MG TABS Take one by mouth daily MELATONIN 43633964964 No Longer Active Tu Landeros MD Active SOMA 350 MG TAB 1 po q 6 hours prn spasm CARISOPRODOL 59114761694 No Longer Active Tu Landeros MD Active MECLIZINE HCL 25 MG CHEW TAB 1 four times a day as needed for dizziness 08/05 MECLIZINE HCL 88050314433 No Longer Active Fab Morales DO Active ANGEL BREEZE 2 TEST DISK test tid prn GLUCOSE BLOOD 77029638192 No Longer Active Negra Scott RN Active REGLAN 10 MG TAB 1 po TID PRN [place] METOCLOPRAMIDE HCL 53218225693 No Longer Active Tu Landeros MD Active METFORMIN HCL 500 MG TABS 1 PO BID METFORMIN HCL 47522879363 No Longer Active Tu Landeros MD Active AMBIEN 10 MG TAB 1 tab by mouth at bedtime as needed for sleep ZOLPIDEM TARTRATE 50681059103 No Longer Active Tu Landeros MD Active FLUOXETINE HCL 40 MG CAPS 1 po q day FLUOXETINE HCL 04241307320 No Longer Active Mayra [place] Active TRILIPIX 135 MG CPDR 1 po qd CHOLINE FENOFIBRATE 26065443666 No Longer Active Tu Landeros MD Active AMBIEN 10 MG TAB 1 tab by mouth at bedtime as needed for sleep AMBIEN 10 MG TAB 705253 ZOLPIDEM TARTRATE Inactive METFORMIN HCL 500 MG TABS 1 PO BID METFORMIN HCL 500 MG TABS 954661 METFORMIN HCL Inactive REGLAN 10 MG TAB 1 po TID PRN Nausea REGLAN 10 MG TAB 468012 METOCLOPRAMIDE HCL Inactive MECLIZINE HCL 25 MG CHEW TAB 1 four times a day as needed for dizziness 08/05 MECLIZINE HCL 25 MG CHEW TAB 592179 MECLIZINE HCL Inactive SOMA 350 MG TAB 1 po q 6 hours prn spasm SOMA 350 MG TAB 296326 CARISOPRODOL Inactive MELATONIN 5 MG TABS Take one by mouth daily MELATONIN 5 MG TABS 795973 MELATONIN Inactive MULTIVITAMINS TABS Take one by mouth daily MULTIVITAMINS TABS MULTIPLE VITAMIN Inactive LORTAB 5 5-500 MG TABS 1/2 to 1 tablet by mouth every 4 hours as needed for pain LORTAB 5 5-500 MG TABS HYDROCODONE- ACETAMINOPHEN Inactive XANAX 0.5 MG TABS 1 tablet every 6 hrs prn XANAX 0.5 MG TABS 958234 ALPRAZOLAM Inactive AUGMENTIN 875-125 MG TAB 1 tab by mouth twice daily with food AUGMENTIN 875-125 MG TAB 799205 AMOXICILLIN-POT CLAVULANATE Inactive ALPRAZOLAM 0.5 MG TABS 1 tab every 6hrs as needed ALPRAZOLAM 0.5 MG TABS 512985 ALPRAZOLAM Inactive SPIRONOLACTONE 25 MG TAB 0.5 tablet by mouth daily SPIRONOLACTONE 25 MG TAB 831419 SPIRONOLACTONE Inactive ACCU-CHEK KEYONA PLUS W/DEVICE KIT Use for testing bloodsugars three times daily as needed ACCU-CHEK KEYONA PLUS W/DEVICE KIT BLOOD GLUCOSE MONITORING SUPPL Inactive ACCU-CHEK KEYONA PLUS STRP Use for testing bloodsugars three times daily as needed ACCU-CHEK KEYONA PLUS STRP GLUCOSE BLOOD Inactive ACCU-CHEK FASTCLIX LANCETS MISC Use to check bloodsugar three times daily as needed ACCU-CHEK FASTCLIX LANCETS MISC 90517428621 LANCETS Inactive TRAMADOL HCL 50 MG TABS 1 tablets every 6 hours as needed for pain TRAMADOL HCL 50 MG TABS 017759 TRAMADOL HCL Inactive VENLAFAXINE HCL 75 MG TABS 1 po BID VENLAFAXINE HCL 75 MG TABS 639302 VENLAFAXINE HCL Inactive HYDROCODONE-ACETAMINOPHEN 5-500 MG TABS take one po Q 4-6 hours prn HYDROCODONE-ACETAMINOPHEN 5-500 MG TABS HYDROCODONE- ACETAMINOPHEN Inactive LORTAB 5 5-500 MG TABS 1/2 to 1 tablet by mouth every 4 hours as needed for pain LORTAB 5 5-500 MG TABS HYDROCODONE- ACETAMINOPHEN Inactive LAMISIL 250 MG TAB 1 po qd LAMISIL 250 MG TAB 158500 TERBINAFINE HCL Inactive VENLAFAXINE HCL 37.5 MG TABS 1 po BID VENLAFAXINE HCL 37.5 MG TABS 740074 VENLAFAXINE HCL Inactive CIPRO 500 MG TAB 1 tablet by mouth twice daily CIPRO 500 MG TAB 580421 CIPROFLOXACIN HCL Inactive VENLAFAXINE HCL 75 MG TABS 1 po BID VENLAFAXINE HCL 75 MG TABS 058610 VENLAFAXINE HCL Inactive SIMVASTATIN 40 MG TABS Take one by mouth daily SIMVASTATIN 40 MG TABS 886303 SIMVASTATIN Inactive OMEPRAZOLE 20 MG TBEC 1 PO 30 MIN BEFORE 1ST MEAL OMEPRAZOLE 20 MG TBEC 589561 OMEPRAZOLE Inactive FENOFIBRATE 145 MG TABS 1 po qd FENOFIBRATE 145 MG TABS 794416 FENOFIBRATE Inactive BACTRIM DS 800-160 MG TABS 1 bid x 14 day start 09-28-13 BACTRIM DS 800-160 MG TABS 125329 SULFAMETHOXAZOLE-TRIMETHOPRIM Inactive B-12 100 MCG TABS Take one by mouth daily B-12 100 MCG TABS CYANOCOBALAMIN Inactive GABAPENTIN 100 MG CAPS 1 po bid GABAPENTIN 100 MG CAPS 272850 GABAPENTIN Inactive HYDROCODONE-ACETAMINOPHEN 5-325 MG TABS 1 tab by mouth every 6 hours as needed for pain HYDROCODONE-ACETAMINOPHEN 5-325 MG TABS 389974 HYDROCODONE-ACETAMINOPHEN Inactive CIPRO 500 MG TABS 1 bid x 14 days start 09-28-13 CIPRO 500 MG TABS 615869 CIPROFLOXACIN HCL Inactive ALIGN 4 MG CAPS [...] as needed DICLOFENAC SODIUM 50 MG TBEC 568051 DICLOFENAC SODIUM Inactive PREDNISONE 20 MG TAB 2 tablets once daily for 2 days, then 1 tablet once daily for 2 days PREDNISONE 20 MG TAB 186842 PREDNISONE Inactive TRUEDRAW LANCING DEVICE MISC Test twice a day dx 250.0 TRUEDRAW LANCING DEVICE MISC LANCET DEVICES Inactive TRUERESULT BLOOD GLUCOSE W/DEVICE KIT test blood sugar twice daily dx 250.00 TRUERESULT BLOOD GLUCOSE W/DEVICE KIT BLOOD GLUCOSE MONITORING SUPPL Inactive FLONASE 50 MCG/ACT SUSP 1 spray each nostril twice daily until bottle empty FLONASE 50 MCG/ACT SUSP 6300499 FLUTICASONE PROPIONATE Inactive VENTOLIN HFA 108 (90 BASE) MCG/ACT AERS 1-2 puffs every 4 hours if needed for cough/congestion VENTOLIN HFA 108 (90 BASE) MCG/ACT AERS ALBUTEROL SULFATE Inactive REQUIP 2 MG TABS Take one tablet at bedtime prn REQUIP 2 MG TABS 849142 ROPINIROLE HCL Inactive SUPER B COMPLEX/VITAMIN C TABS 1 qd SUPER B COMPLEX/ VITAMIN C TABS 01455925936 B COMPLEX-C Inactive TRUEDRAW LANCING DEVICE MISC test blood sugar twice daily dx: 250.00 TRUEDRAW LANCING DEVICE MISC LANCET DEVICES Inactive TRUETEST TEST INVITR STRP test blood sugar twice daily. DX 250.0 TRUETEST TEST INVITR STRP GLUCOSE BLOOD Inactive TRIAMCINOLONE ACETONIDE 0.1 % OINT Apply to affected areas TID for up to 2 weeks TRIAMCINOLONE ACETONIDE 0.1 % OINT 7205863 TRIAMCINOLONE ACETONIDE Inactive PREDNISONE 20 MG TAB 2 tabs daily for 3 days, 1 tab daily for 3 days, 1/2 tab daily for 2 days PREDNISONE 20 MG TAB 185347 PREDNISONE Inactive PREDNISONE 20 MG TAB 2 tabs daily for 3 days, 1 tab daily for 3 days, 1/2 tab daily for 2 days PREDNISONE 20 MG TAB 252228 PREDNISONE Inactive BACTRIM DS 800-160 MG TABS 1 po BID x 7 days BACTRIM DS 800-160 MG TABS 464186 SULFAMETHOXAZOLE-TRIMETHOPRIM Inactive ZITHROMAX 250 MG TAB 2 po today, then 1 po q days 2-5 ZITHROMAX 250 MG TAB 2036662 AZITHROMYCIN Inactive Advance Directives Directive Description Start Date DISCUSSED WITH PATIENT -- NO DECISION MADE Immunizations Vaccine Administration Date Value Standard Description Seasonal influenza vaccine, injectable, containing preservative, for > 3 years old (Afluria, FluLaval, Fluzone, Fluvirin, Fluarix, Agriflu(>=18 yo)) Fluzone (>3 yrs.) [MXQ871] Influenza, seasonal, injectable influenza immunization (Flu Vax) has been administered 02/22/2012 influenza virus vaccine, unspecified formulation Seasonal influenza vaccine, injectable, containing preservative, for > 3 years old (Afluria, FluLaval, Fluzone, Fluvirin, Fluarix, Agriflu(>=18 yo)) Fluzone (>3 yrs.) [GQD380] Influenza, seasonal, injectable Vital Signs Date Name [...] Magnesium - Chemistry sodium, serum 143 mmol/L 314-375 6346/01/10 carbon dioxide, venous blood 28.0 mmol/L 21.0-32.0 potassium, serum 4.5 mmol/L 3.5-5.2 chloride, serum 104 mmol/L 98-107 blood glucose 158 mg/dL 65-110 urea nitrogen, blood 23 mg/dL 7-18 creatinine, serum 1.06 mg/dL 0.55-1.30 alanine aminotransferase (SGPT), serum 42 U/L 12-78 aspartate aminotransferase (SGOT), serum 32 U/L 15-37 calcium, serum 9.3 mg/dL 8.5-10.1 bilirubin, serum, total 0.20 mg/dL 0.00-1.00 cholesterol, serum 177 mg/dL 327-904 4420/01/10 triglyceride, serum, fasting 320 mg/dL 30-200 HDL cholesterol, serum 46 mg/dL 32-96 LDL cholesterol, serum 67 mg/dL 0-130 Lab Report: COMPREHENSIVE METABOLIC PANEL, LIPID PANEL, HEMOGLOBIN A1c - Chemistry cholesterol, serum 135 mg/dL 979-130 2765/05/17 HDL cholesterol, serum 41 mg/dL > OR=46 triglyceride, serum, fasting 206 mg/dL <150 LDL cholesterol, serum 53 MG/DL (CALC) mg/dL <130 cholesterol/HDL ratio, serum 3.3 (calc) < OR=5.0 Lab Report: HGBA1C - Chemistry hemoglobin A1C, blood, as % of total hemoglobin 7.4 % 4.3-6.0 sodium, serum 140 mmol/L 306-515 0487/09/07 potassium, serum 4.3 mmol/L 3.5-5.2 chloride, serum [...] <30 Encounters Code Encounter Date Provider Facility CPT-33393 Level 4 Est. Patient 14:29:21 CDT Tu Landeros MD [facility] CPT-22530 Level 4 Est. Patient 09:08:17 PEARL PELLER Tu Landeros MD [facility] CPT-87813 Level 4 Est. Patient 14:40:19 CDT Tu Landeros MD [facility] CPT-95830 Level 4 Est. Patient 14:06:04 PEARL PELLER Tu Landeros MD [facility] CPT-95333 Level 3 Est. Patient 14:05:18 PEARL PELLER Tu Landeros MD [facility] CPT-37410 Level 3 Est. Patient 10:06:54 [facility]ARL PELLER Miranda Suresh APRN [facility] CPT-94770 Level 4 Est. Patient 13:50:18 PEARL PELLER Tu Landeros MD [facility] CPT-30260 Level 3 Est. Patient 10:30:04 CDT Tu Landeros MD [facility] CPT-83616 Level 4 Est. Patient 11:03:38 CDT Tu Landeros MD [facility] CPT-14741 Level 3 Est. Patient 10:20:44 CDT Fab Morales DO [facility] CPT-52653 Level 4 Est. Patient 14:38:57 CDT Tu Landeros MD [facility] CPT-95676 Level 4 Est. Patient 14:27:39 PEARL PELLER Tu Landeros MD [facility] CPT-68972 Level 4 Est. Patient 09:45:25 CDT Tu Landeros MD [facility] CPT-09733 Level 4 Est. Patient 09:05:20 PEARL PELLER Tu Landeros MD [facility] CPT-80494 Level 4 Est. Patient 14:09:06 CDT Tu Landeros MD [facility] CPT-41629 Level 3 Est. Patient 13:36:54 CDT Tu Landeros MD [facility] CPT-07148 Level 3 Est. Patient 08:59:14 CDT Tu Landeros MD [facility] CPT-54743 Level 3 Est. Patient 13:48:35 CDT Fab Morales DO [facility] CPT-80877 Level 4 Est. Patient 10:05:48 CDT Tu Landeros MD [facility] CPT-76659 Level 3 Est. Patient 13:38:42 CDT Marek BANKS [facility] CPT-32774 Level 5 Est. Patient 08:08:39 CDT Jerrica FRANCIS [facility] CPT-03443 Level 4 Est. Patient 14:23:38 CDT Tu Landeros MD [facility] CPT-43239 Level 3 Est. Patient 11:44:04 CDT Tu Landeros MD [facility] CPT-03187 Level 3 Est. Patient 11:03:20 PEARL PELLER Tu Landeros MD [facility] CPT-39755 Level 3 Est. Patient 11:03:14 PEARL PELLER Tu Landeros MD [facility] CPT-78854 Level 3 Est. Patient 12:42:49 CDT Tu Landeros MD [facility] CPT-78864 Level 3 Est. Patient 11:52:06 CDT Tu Landeros MD [facility] CPT-95724 Level 3 Est. Patient 13:58:11 CDT Tu Landeros MD [facility] CPT-69680 Level 3 Est. Patient 17:50:07 CDT Fab Morales DO [facility] CPT-39239 Level 3 Est. Patient 12:06:29 CDT Elvira Cervantes MD, PhD [facility] CPT-75133 Level 3 Est. Patient 15:50:32 CDT Tu Landeros MD [facility] CPT-59206 Level 4 Est. Patient 16:08:29 CDT Tu Landeros MD [facility] CPT-80292 Level 3 Est. Patient 16:04:19 CDT Tu Landeros MD [facility] CPT-00972 Level 3 Est. Patient 11:22:30 PEARL PELLER Tu Landeros MD [facility] CPT-36094 Level 4 Est. Patient 16:24:02 PEARL PELLER Tu Landeros MD [facility] CPT-52240 Level 3 Est. Patient 17:21:23 PEARL PELLER Tu Landeros MD [facility] Procedures Code Procedure Name Date Entry Date Standard Description CPT-G0009 Administration of Pneumococcal Vaccine 15:08:26 CDT CPT-00037 Prevnar 13 Intramuscular Suspension 15:08:26 CDT 10/08 CPT-G0439 [facility] Annual Wellness Exam 14:29:22 CDT CPT-59337 Venipuncture Draw Fee 13:15:35 CDT CPT-65136 Magnesium - LAB USE ONLY 11:14:20 PEARL PELLER CPT-72496 Lipid - LAB USE ONLY 11:14:20 PEARL PELLER CPT-01987 HGBA1C - LAB USE ONLY 11:14:20 PEARL PELLER CPT-82303 CMP - LAB USE ONLY 11:14:19 PEARL PELLER CPT-77856 CBC - LAB USE ONLY 11:14:19 PEARL PELLER CPT-14580 Venipuncture Draw Fee 11:14:18 PEARL PELLER CPT-58663 First Vx - Ix admin for Medicare patients 16:46:52 CDT CPT-18444 Fluzone Preservative Free Intramuscular Suspension 16:46 :51 CDT CPT-93313 CBC - LAB USE ONLY 17:14:46 CDT CPT-70354 HGBA1C - LAB USE ONLY 17:14:46 CDT CPT-94557 Venipuncture Draw Fee 17:14:46 CDT CPT-G0438 Initial Annual Wellness Exam 14:13:04 CDT CPT-11906 Breathing Tx 10:06:54 PEARL PELLER CPT-72085 Postop F/U Visit 10:02:45 CDT CPT-LR Lesion Removal 09:02:56 CDT CPT-JTINJ Asp/Joint Injection 15:51:27 PEARL PELLER CPT-OV Office Visit 15:52:02 PEARL PELLER CPT-OV Office Visit 15:45:11 CDT CPT-000 Give Zostavax 14:09:06 CDT CPT-98589 Administration single or combination vaccine inc oral 15 :19:04 CDT CPT-18310 Zoster Vaccine (Zostavax) 15:19:04 CDT CPT-74501 Administration single or combination vaccine inc oral 20 :51:03 CDT CPT-77468 Influenza split virus > age 3 20:51:03 CDT CPT-56855 No Charge Offi Visit 14:52:03 CDT CPT-OV Office Visit 14:57:43 CDT CPT-OV Office Visit 15:22:32 CDT CPT-07445 Administration single or combination vaccine inc oral 11 :33:15 CDT CPT-98677 Influenza split virus > age 3 11:33:15 CDT
--- OUTSIDE RECORDS SUMMARY | 2018-04-25 16:41 | XMS REPORT | Clinical Summary ---
Author Author Admin, SACHI Organization [employer] Address Unknown Phone Unavailable Allergies, Adverse Reactions, [...] level not further specified 369.20 Resolved Tu aLnderos MD Moderate or severe vision impairment, both [...] FATIGUE ICD-780.79 Inactive Tu Landeros MD 2012 POSTMENOPAUSAL BLEEDING ICD-627.1 Inactive Elvira Cervantes MD PhD KNEE PAIN ICD-719.46 Inactive uT Landeros MD CONTUSION OF UNSPECIFIED SITE ICD-924.9 [...] Landeros MD Shoulder pain, right ICD-719.41 Tessa Wiselow MD Great toe pain ICD-729.5 Inactive Tu Landeros MD ARTHRITIS ICD-716.90 Inactive Tu Landeros MD Open wound of abdominal wall, anterior, complicated ICD-879.3 Inactive Tu Landeros MD Medication List Medication Instructions Start Date Stop Date Generic Name NDC Status Provider Patient Instruction MAGNESIUM OXIDE 400 MG ORAL TABLET 1 po BID MAGNESIUM OXIDE 94110703853 Active Tu Landeros MD Active SIMVASTATIN 20 MG ORAL TABLET 0.5 po qHS SIMVASTATIN 50370261980 Active Tu Landeros MD Active DICLOFENAC SODIUM 75 MG ORAL TABLET DELAYED RELEASE 1 po BID PRN Pain DICLOFENAC SODIUM 45775501876 No Longer Active Tu Landeros MD Active GABAPENTIN 100 MG ORAL CAPSULE 1 po TID GABAPENTIN 50211940729 Active Tu Landeros MD Active DICLOFENAC SODIUM 50 MG ORAL TABLET DELAYED RELEASE 1 po BID PRN Pain DICLOFENAC SODIUM 00613074055 No Longer Active Tu Landeros MD Active CYCLOBENZAPRINE HCL 10 MG ORAL TABLET 1 po TID PRN Muscle Spasm CYCLOBENZAPRINE HCL 63525416321 No Longer Active Tu Landeros MD Active INVOKANA 100 MG ORAL TABLET 1 po qd CANAGLIFLOZIN 62395692629 Active Tu Landeros MD Active GLIPIZIDE 5 MG ORAL TABLET 1 po qd GLIPIZIDE 69102131679 No Longer Active Tu Landeros MD Active VENLAFAXINE HCL 75 MG ORAL TABLET 1 po BID VENLAFAXINE HCL 09180649773 Active Tu Landeros MD Active GLIMEPIRIDE 1 MG ORAL TABLET 1 po qd GLIMEPIRIDE 13537619226 No Longer Active Tu Landeros MD Active TRUE METRIX BLOOD GLUCOSE TEST IN VITRO STRIP Test blood sugar BID Dx: E11.9 GLUCOSE BLOOD 93775118605 Active Tu Landeros MD Active TRUE METRIX AIR GLUCOSE METER w/Device KIT Test blood glucose BID Dx: E11.9 BLOOD GLUCOSE MONITORING SUPPL 88174593330 Active Tu Landeros MD Active TRUETEST TEST IN VITRO STRIP test blood sugar twice daily. DX 250.0 GLUCOSE BLOOD 22185020151 No Longer Active Mirna Stanley LPN Active TRUEDRAW LANCING DEVICE test blood sugar twice daily dx: 250.00 LANCET DEVICES 69611022216 No Longer Active Mirna Stanley LPN Active ENALAPRIL MALEATE 20 MG ORAL TABLET 2 po qd ENALAPRIL MALEATE 49058078282 Active Tu Landeros MD Active SUPER B COMPLEX/VITAMIN C ORAL TABLET 1 qd B COMPLEX- C 07596060451 No Longer Active Tu Landeros MD Active ASPIRIN EC 81 MG ORAL TABLET DELAYED RELEASE 1 po qd ASPIRIN 34366321589 Active Tu Landeros MD Active GLUCOSAMINE 500 MG TABS 2 po qd GLUCOSAMINE Active Tu Landeros MD Active FISH OIL 1000 MG ORAL CAPSULE 1 po qd OMEGA-3 FATTY ACIDS 39863344921 Active Tu Landeros MD Active METFORMIN HCL 1000 MG ORAL TABLET 1 po BID METFORMIN HCL 20372926504 Active Tu Landeros MD Active KLOR-CON 10 10 MEQ ORAL TABLET EXTENDED RELEASE 2 po qd POTASSIUM CHLORIDE 19623078541 Active Tu Landeros MD Active FUROSEMIDE 40 MG ORAL TABLET 1 po qd FUROSEMIDE 51912070616 Active Tu Landeros MD Active REQUIP 2 MG ORAL TABLET 1 po qHS PRN Restless legs ROPINIROLE HCL 65755082913 Active Tu Landeros MD Active REQUIP 2 MG ORAL TABLET Take one tablet at bedtime prn ROPINIROLE HCL 63244592676 No Longer Active Tu Landeros MD Active VENTOLIN HFA 108 (90 Base) MCG/ACT INHALATION AEROSOL SOLUTION 1-2 puffs every 4 hours if needed for cough/congestion ALBUTEROL SULFATE 98489909098 No Longer Active Ambika Aden APRN Active ZITHROMAX 250 MG ORAL TABLET 2 po today, then 1 po q days 2-5 AZITHROMYCIN 79798051346 No Longer Active Miranda Suresh APRN Active FLONASE 50 MCG/ACT NASAL SUSPENSION 1 spray each nostril twice daily until bottle empty FLUTICASONE PROPIONATE 91542553508 No Longer Active Tu Landeros MD Active COLACE 100 MG ORAL CAPSULE 1 po BID PRN Constipation DOCUSATE SODIUM 17406116132 Active Tu Landeros MD Active TRUERESULT BLOOD GLUCOSE w/Device KIT test blood sugar twice daily dx 250.00 BLOOD GLUCOSE MONITORING SUPPL 34415746627 No Longer Active Tu Landeros MD Active TRUEDRAW LANCING DEVICE Test twice a day dx 250.0 LANCET DEVICES 11482613433 No Longer Active Tu Landeros MD Active PREDNISONE 20 MG ORAL TABLET 2 tablets once daily for 2 days, then 1 tablet once daily for 2 days PREDNISONE 01930172753 No Longer Active Tu Landeros MD Active DICLOFENAC SODIUM 50 MG ORAL TABLET DELAYED RELEASE 1 tablet by mouth three times a day as needed DICLOFENAC SODIUM 87354658562 No Longer Active Fab Morales DO Active EMBRACE BLOOD GLUCOSE TEST IN VITRO STRIP test blood sugar twice daily DX 250.0 GLUCOSE BLOOD 46897031404 No Longer Active Tu Landeros MD Active TRUETEST TEST IN VITRO STRIP test blood sugar three times daily dx: 250.00 GLUCOSE BLOOD 53286676111 No Longer Active Suze VOGEL Active TRUERESULT BLOOD GLUCOSE w/Device KIT use to test blood sugar tid dx: 250.00 BLOOD GLUCOSE MONITORING SUPPL 17807262413 No Longer Active Suze Corey VOGEL Active ALIGN 4 MG ORAL CAPSULE 1 tid PROBIOTIC PRODUCT 22899446570 No Longer Active Shaun Sy MD Active CIPRO 500 MG ORAL TABLET 1 bid x 14 days start 09-28-13 CIPROFLOXACIN HCL 07060019093 No Longer Active Shaun Sy MD Active TRAMADOL HCL 50 MG ORAL TABLET 1-2 tablets every 6 hours as needed for pain TRAMADOL HCL 63062017920 Active Tu Landeros MD Active HYDROCODONE-ACETAMINOPHEN 5-325 MG ORAL TABLET 1 tab by mouth every 6 hours as needed for pain HYDROCODONE-ACETAMINOPHEN 30061946310 No Longer Active Tu Landeros MD Active OMEPRAZOLE 20 MG ORAL CAPSULE DELAYED RELEASE 1 po q a.m. OMEPRAZOLE 25910685089 Active Fab Morales DO Active GABAPENTIN 100 MG ORAL CAPSULE 1 po bid GABAPENTIN 72527360596 No Longer Active Tu Landeros MD Active B-12 100 MCG ORAL TABLET Take one by mouth daily CYANOCOBALAMIN 26944176753 No Longer Active Tu Landeros MD Active BACTRIM DS 800-160 MG ORAL TABLET 1 bid x 14 day start 09-28-13 SULFAMETHOXAZOLE-TRIMETHOPRIM 70445688891 No Longer Active Tu Landeros MD Active CARVEDILOL 12.5 MG ORAL TABLET 1 po BID CARVEDILOL 46001078091 Active Tu Landeros MD Active TRILIPIX 135 MG ORAL CAPSULE DELAYED RELEASE 1 q hs CHOLINE FENOFIBRATE 28941931388 Active Tu Landeros MD Active FENOFIBRATE 145 MG ORAL TABLET 1 po qd FENOFIBRATE 78159218344 No Longer Active JASPREET Perez Active OMEPRAZOLE 20 MG ORAL TABLET DELAYED RELEASE 1 PO 30 MIN BEFORE 1ST MEAL 2010 OMEPRAZOLE 70843808657 No Longer Active JASPREET Perez Active SIMVASTATIN 40 MG ORAL TABLET Take one by mouth daily SIMVASTATIN 43280975639 No Longer Active JASPREET Perez Active VENLAFAXINE HCL 75 MG ORAL TABLET 1 po BID VENLAFAXINE HCL 38835407193 No Longer Active JASPREET Perez Active CIPRO 500 MG ORAL TABLET 1 tablet by mouth twice daily CIPROFLOXACIN HCL 74950714745 No Longer Active Tu Landeros MD Active VENLAFAXINE HCL 37.5 MG ORAL TABLET 1 po BID VENLAFAXINE HCL 68293140431 No Longer Active Suze VOGEL Active LAMISIL 250 MG ORAL TABLET 1 po qd TERBINAFINE HCL 76099628026 No Longer Active Tu Landeros MD Active LORTAB 5-500 MG ORAL TABLET 1/2 to 1 tablet by mouth every 4 hours as needed for pain HYDROCODONE-ACETAMINOPHEN 32343456022 No Longer Active Tu Landeros MD Active HYDROCODONE-ACETAMINOPHEN 5-500 MG ORAL TABLET take one po Q 4-6 hours prn HYDROCODONE-ACETAMINOPHEN 44905216490 No Longer Active Tu Landeros MD Active BACTRIM DS 800-160 MG ORAL TABLET 1 po BID x 7 days SULFAMETHOXAZOLE-TRIMETHOPRIM 32947729757 No Longer Active Tu Landeros MD Active VENLAFAXINE HCL 75 MG ORAL TABLET 1 po BID VENLAFAXINE HCL 95472533065 No Longer Active Elvira Cervantes MD PhD Active TRAMADOL HCL 50 MG ORAL TABLET 1 tablets every 6 hours as needed for pain TRAMADOL HCL 11656336986 No Longer Active Tu Landeros MD Active ACCU-CHEK FASTCLIX LANCETS Use to check bloodsugar three times daily as needed LANCETS 65978487016 No Longer Active Tu Landeros MD Active ACCU-CHEK KEYONA PLUS IN VITRO STRIP Use for testing bloodsugars three times daily as needed GLUCOSE BLOOD 08954301893 No Longer Active Tu Landeros MD Active ACCU-CHEK KEYONA PLUS w/Device KIT Use for testing bloodsugars three times daily as needed BLOOD GLUCOSE MONITORING SUPPL 46534628108 No Longer Active uT Landeros MD Active SPIRONOLACTONE 25 MG ORAL TABLET 0.5 tablet by mouth daily 09/09 SPIRONOLACTONE 76826845055 No Longer Active Tu Landeros MD Active ALPRAZOLAM 0.5 MG ORAL TABLET 1 tab every 6hrs as needed ALPRAZOLAM 04212120527 No Longer Active Tu Landeros MD Active AUGMENTIN 875-125 MG ORAL TABLET 1 tab by mouth twice daily with food AMOXICILLIN-POT CLAVULANATE 82727754012 No Longer Active Tu Landeros MD Active PREDNISONE 20 MG ORAL TABLET 2 tabs daily for 3 days, 1 tab daily for 3 days, 1/2 tab daily for 2 days PREDNISONE 39549664028 No Longer Active Tu Landeros MD Active XANAX 0.5 MG ORAL TABLET 1 tablet every 6 hrs prn ALPRAZOLAM 81916336713 No Longer Active Tu Landeros MD Active PREDNISONE 20 MG ORAL TABLET 2 tabs daily for 3 days, 1 tab daily for 3 days, 1/2 tab daily for 2 days PREDNISONE 30221553337 No Longer Active Tu Landeros MD Active TRIAMCINOLONE ACETONIDE 0.1 % EXTERNAL OINTMENT Apply to affected areas TID for up to 2 weeks TRIAMCINOLONE ACETONIDE 69965729742 No Longer Active Tu Landeros MD Active LORTAB 5-500 MG ORAL TABLET 1/2 to 1 tablet by mouth every 4 hours as needed for pain HYDROCODONE-ACETAMINOPHEN 46118223134 No Longer Active Tu Landeros MD Active MULTIVITAMINS TABS Take one by mouth daily MULTIPLE VITAMIN 89795383703 No Longer Active Tu Lanedros MD Active MELATONIN 5 MG ORAL TABLET Take one by mouth daily MELATONIN 08516020689 No Longer Active Tu Landeros MD Active SOMA 350 MG ORAL TABLET 1 po q 6 hours prn spasm CARISOPRODOL 59335007292 No Longer Active Tu Landeros MD Active MECLIZINE HCL 25 MG ORAL TABLET CHEWABLE 1 four times a day as needed for dizziness MECLIZINE HCL 65437506290 No Longer Active Fab Morales DO Active ANGEL BREEZE 2 TEST IN VITRO DISK test tid prn GLUCOSE BLOOD 68559294709 No Longer Active Negra Scott RN Active REGLAN 10 MG ORAL TABLET 1 po TID PRN Nausea METOCLOPRAMIDE HCL 77189119949 No Longer Active Tu Landeros MD Active METFORMIN HCL 500 MG ORAL TABLET 1 PO BID METFORMIN HCL 34233955297 No Longer Active Tu Landeros MD Active AMBIEN 10 MG ORAL TABLET 1 tab by mouth at bedtime as needed for sleep 06/10 ZOLPIDEM TARTRATE 19452730884 No Longer Active Tu Landeros MD Active FLUOXETINE HCL 40 MG ORAL CAPSULE 1 po q day FLUOXETINE HCL 57069997709 No Longer Active Mayra Terry Active TRILIPIX 135 MG ORAL CAPSULE DELAYED RELEASE 1 po qd CHOLINE FENOFIBRATE 02379554008 No Longer Active Tu Landeros MD Active AMBIEN 10 MG ORAL TABLET 1 tab by mouth at bedtime as needed for sleep 06/10 AMBIEN 10 MG ORAL TABLET 663843 ZOLPIDEM TARTRATE Inactive METFORMIN HCL 500 MG ORAL TABLET 1 PO BID METFORMIN HCL 500 MG ORAL TABLET 724881 METFORMIN HCL Inactive REGLAN 10 MG ORAL TABLET 1 po TID PRN Nausea REGLAN 10 MG ORAL TABLET 059069 METOCLOPRAMIDE HCL Inactive MECLIZINE HCL 25 MG ORAL TABLET CHEWABLE 1 four times a day as needed for dizziness MECLIZINE HCL 25 MG ORAL TABLET CHEWABLE 297076 MECLIZINE HCL Inactive SOMA 350 MG ORAL TABLET 1 po q 6 hours prn spasm SOMA 350 MG ORAL TABLET 791919 CARISOPRODOL Inactive MELATONIN 5 MG ORAL TABLET Take one by mouth daily MELATONIN 5 MG ORAL TABLET 141539 MELATONIN Inactive MULTIVITAMINS TABS Take one by mouth daily MULTIVITAMINS TABS MULTIPLE VITAMIN Inactive LORTAB 5-500 MG ORAL TABLET 1/2 to 1 tablet by mouth every 4 hours as needed for pain LORTAB 5-500 MG ORAL TABLET 930412 HYDROCODONE-ACETAMINOPHEN Inactive XANAX 0.5 MG ORAL TABLET 1 tablet every 6 hrs prn XANAX 0.5 MG ORAL TABLET 697705 ALPRAZOLAM Inactive AUGMENTIN 875-125 MG ORAL TABLET 1 tab by mouth twice daily with food AUGMENTIN 875-125 MG ORAL TABLET 631359 AMOXICILLIN-POT CLAVULANATE Inactive ALPRAZOLAM 0.5 MG ORAL TABLET 1 tab every 6hrs as needed ALPRAZOLAM 0.5 MG ORAL TABLET 670736 ALPRAZOLAM Inactive SPIRONOLACTONE 25 MG ORAL TABLET 0.5 tablet by mouth daily 09/09 SPIRONOLACTONE 25 MG ORAL TABLET 901847 SPIRONOLACTONE Inactive ACCU-CHEK KEYONA PLUS w/Device KIT [...] times daily as needed ACCU-CHEK FASTCLIX LANCETS 57251550907 LANCETS Inactive TRAMADOL HCL 50 MG ORAL TABLET 1 tablets every 6 hours as needed for pain TRAMADOL HCL 50 MG ORAL TABLET 552010 TRAMADOL HCL Inactive VENLAFAXINE HCL 75 MG ORAL TABLET 1 po BID VENLAFAXINE HCL 75 MG ORAL TABLET 419534 VENLAFAXINE HCL Inactive HYDROCODONE-ACETAMINOPHEN 5-500 MG ORAL TABLET take one po Q 4-6 hours prn HYDROCODONE-ACETAMINOPHEN 5-500 MG ORAL TABLET 031695 HYDROCODONE-ACETAMINOPHEN Inactive LORTAB 5-500 MG ORAL TABLET 1/2 to 1 tablet by mouth every 4 hours as needed for pain LORTAB 5-500 MG ORAL TABLET 436057 HYDROCODONE-ACETAMINOPHEN Inactive LAMISIL 250 MG ORAL TABLET 1 po qd LAMISIL 250 MG ORAL TABLET 127237 TERBINAFINE HCL Inactive VENLAFAXINE HCL 37.5 MG ORAL TABLET 1 po BID VENLAFAXINE HCL 37.5 MG ORAL TABLET 973215 VENLAFAXINE HCL Inactive CIPRO 500 MG ORAL TABLET 1 tablet by mouth twice daily CIPRO 500 MG ORAL TABLET 638433 CIPROFLOXACIN HCL Inactive VENLAFAXINE HCL 75 MG ORAL TABLET 1 po BID VENLAFAXINE HCL 75 MG ORAL TABLET 099021 VENLAFAXINE HCL Inactive SIMVASTATIN 40 MG ORAL TABLET Take one by mouth daily SIMVASTATIN 40 MG ORAL TABLET 871891 SIMVASTATIN Inactive OMEPRAZOLE 20 MG ORAL TABLET DELAYED RELEASE 1 PO 30 MIN BEFORE 1ST MEAL 2010 OMEPRAZOLE 20 MG ORAL TABLET DELAYED RELEASE 631464 OMEPRAZOLE Inactive FENOFIBRATE 145 MG ORAL TABLET 1 po qd FENOFIBRATE 145 MG ORAL TABLET 245317 FENOFIBRATE Inactive BACTRIM DS 800-160 MG ORAL TABLET 1 bid x 14 day start 09-28-13 BACTRIM DS 800-160 MG ORAL TABLET 499615 SULFAMETHOXAZOLE- TRIMETHOPRIM Inactive B-12 100 MCG ORAL TABLET Take one by mouth daily B-12 100 MCG ORAL TABLET CYANOCOBALAMIN Inactive GABAPENTIN 100 MG ORAL CAPSULE 1 po bid GABAPENTIN 100 MG ORAL CAPSULE 820772 GABAPENTIN Inactive HYDROCODONE-ACETAMINOPHEN 5-325 MG ORAL TABLET 1 tab by mouth every 6 hours as needed for pain HYDROCODONE-ACETAMINOPHEN 5-325 MG ORAL TABLET 252278 HYDROCODONE-ACETAMINOPHEN Inactive CIPRO 500 MG ORAL TABLET 1 bid x 14 days start 09-28-13 CIPRO 500 MG ORAL TABLET 077878 CIPROFLOXACIN HCL Inactive ALIGN 4 MG ORAL [...] SODIUM 50 MG ORAL TABLET DELAYED RELEASE 302022 DICLOFENAC SODIUM Inactive PREDNISONE 20 MG ORAL TABLET 2 tablets once daily for 2 days, then 1 tablet once daily for 2 days PREDNISONE 20 MG ORAL TABLET 435440 PREDNISONE Inactive TRUEDRAW LANCING DEVICE Test twice a day dx 250.0 TRUEDRAW LANCING DEVICE LANCET DEVICES Inactive TRUERESULT BLOOD GLUCOSE w/Device KIT test blood sugar twice daily dx 250.00 TRUERESULT BLOOD GLUCOSE w/Device KIT BLOOD GLUCOSE MONITORING SUPPL Inactive FLONASE 50 MCG/ACT NASAL SUSPENSION 1 spray each nostril twice daily until bottle empty FLONASE 50 MCG/ACT NASAL SUSPENSION 2376757 FLUTICASONE PROPIONATE Inactive VENTOLIN HFA 108 (90 Base) MCG/ACT INHALATION AEROSOL SOLUTION 1-2 puffs every 4 hours if needed for cough/congestion VENTOLIN HFA 108 (90 Base) MCG/ACT INHALATION AEROSOL SOLUTION ALBUTEROL SULFATE Inactive REQUIP 2 MG ORAL TABLET Take one tablet at bedtime prn REQUIP 2 MG ORAL TABLET 651924 ROPINIROLE HCL Inactive SUPER B COMPLEX/VITAMIN C ORAL TABLET 1 qd SUPER B COMPLEX/VITAMIN C ORAL TABLET 20002414413 B COMPLEX-C Inactive TRUEDRAW LANCING DEVICE test blood sugar twice daily dx: 250.00 TRUEDRAW LANCING DEVICE LANCET DEVICES Inactive TRUETEST TEST IN VITRO STRIP test blood sugar twice daily. DX 250.0 TRUETEST TEST IN VITRO STRIP GLUCOSE BLOOD Inactive CYCLOBENZAPRINE HCL 10 MG ORAL TABLET 1 po TID PRN Muscle Spasm CYCLOBENZAPRINE HCL 10 MG ORAL TABLET 614777 CYCLOBENZAPRINE HCL Inactive DICLOFENAC SODIUM 50 MG ORAL TABLET DELAYED RELEASE 1 po BID PRN Pain DICLOFENAC SODIUM 50 MG ORAL TABLET DELAYED RELEASE 309687 DICLOFENAC SODIUM Inactive DICLOFENAC SODIUM 75 MG ORAL TABLET DELAYED RELEASE 1 po BID PRN Pain DICLOFENAC SODIUM 75 MG ORAL TABLET DELAYED RELEASE 245683 DICLOFENAC SODIUM Inactive TRIAMCINOLONE ACETONIDE 0.1 % EXTERNAL OINTMENT Apply to affected areas TID for up to 2 weeks TRIAMCINOLONE ACETONIDE 0.1 % EXTERNAL OINTMENT 7604356 TRIAMCINOLONE ACETONIDE Inactive PREDNISONE 20 MG ORAL TABLET 2 tabs daily for 3 days, 1 tab daily for 3 days, 1/2 tab daily for 2 days PREDNISONE 20 MG ORAL TABLET 924705 PREDNISONE Inactive PREDNISONE 20 MG ORAL TABLET 2 tabs daily for 3 days, 1 tab daily for 3 days, 1/2 tab daily for 2 days PREDNISONE 20 MG ORAL TABLET 683832 PREDNISONE Inactive BACTRIM DS 800-160 MG ORAL TABLET 1 po BID x 7 days BACTRIM DS 800-160 MG ORAL TABLET 081670 SULFAMETHOXAZOLE-TRIMETHOPRIM Inactive ZITHROMAX 250 MG ORAL TABLET 2 po today, then 1 po q days 2-5 ZITHROMAX 250 MG ORAL TABLET 747512 AZITHROMYCIN Inactive Advance Directives Directive Description Start Date DISCUSSED WITH PATIENT -- NO DECISION MADE Immunizations Vaccine Administration Date Value Standard Description Seasonal influenza vaccine, injectable, containing preservative, for > 3 years old (Afluria, FluLaval, Fluzone, Fluvirin, Fluarix, Agriflu(>=18 yo)) Fluzone (>3 yrs.) [[id number]] Influenza, seasonal, injectable influenza immunization (Flu Vax) has been administered 02/22/2012 influenza virus vaccine, unspecified formulation Seasonal influenza vaccine, injectable, containing preservative, for > 3 years old (Afluria, FluLaval, Fluzone, Fluvirin, Fluarix, Agriflu(>=18 yo)) Fluzone (>3 yrs.) [[id number]] Influenza, seasonal, injectable Vital Signs Date Name [...] ... - Chemistry sodium, serum 141 mmol/L 077-712 9844/01/16 carbon dioxide, venous blood 28.3 mmol/L 21.0-32.0 [...] 6.7 % 4.3-6.0 cholesterol, serum 106 mg/dL 621-891 0920/01/16 triglyceride, serum, fasting 173 mg/dL 30-200 HDL [...] A1c - Chemistry cholesterol, serum 135 mg/dL 958-605 3845/05/17 HDL cholesterol, serum 41 mg/dL > OR=46 triglyceride, serum, fasting 206 mg/dL <150 LDL cholesterol, serum 53 MG/DL (CALC) mg/dL <130 cholesterol/HDL ratio, serum 3.3 (calc) < OR=5.0 Lab Report: HGBA1C - Chemistry hemoglobin A1C, blood, as % of total hemoglobin 6.5 % 4.3-6.0 Encounters Code Encounter Date Provider Facility CPT-78669 Level 4 Est. Patient 13:42:02 CHOIR DIRECTOR Tu Landeros MD [facility] CPT-82818 Level 3 Est. Patient 14:20:36 CDT Tu Landeros MD [facility] CPT-77178 Level 4 Est. Patient 14:28:34 CDT Tu Landeros MD [facility] CPT-52491 Level 3 Est. Patient 13:33:09 CDT Tu Landeros MD [facility] CPT-26662 Level 4 Est. Patient 14:29:21 CDT Tu Landeros MD [facility] CPT-60511 Level 4 Est. Patient 09:08:17 CHOIR DIRECTOR Tu Landeros MD [facility] CPT-18173 Level 4 Est. Patient 14:40:19 CDT Tu Landeros MD [facility] CPT-51639 Level 4 Est. Patient 14:06:04 CHOIR DIRECTOR Tu Landeros MD [facility] CPT-61129 Level 3 Est. Patient 14:05:18 CHOIR DIRECTOR Tu Landeros MD [facility] CPT-52032 Level 3 Est. Patient 10:06:54 CHOIR DIRECTOR Miranda Suresh APRN [facility] CPT-02516 Level 4 Est. Patient 13:50:18 CHOIR DIRECTOR Tu Landeros MD [facility] CPT-08590 Level 3 Est. Patient 10:30:04 CDT Tu Landeros MD [facility] CPT-51401 Level 4 Est. Patient 11:03:38 CDT Tu Landeros MD [facility] CPT-19831 Level 3 Est. Patient 10:20:44 CDT Fab Morales DO [facility] CPT-43727 Level 4 Est. Patient 14:38:57 CDT Tu Landeros MD [facility] CPT-35987 Level 4 Est. Patient 14:27:39 CHOIR DIRECTOR Tu Landeros MD [facility] CPT-81693 Level 4 Est. Patient 09:45:25 CDT Tu Landeros MD [facility] CPT-06562 Level 4 Est. Patient 09:05:20 CHOIR DIRECTOR Tu Landeros MD [facility] CPT-13372 Level 4 Est. Patient 14:09:06 CDT Tu Landeros MD [facility] CPT-32250 Level 3 Est. Patient 13:36:54 CDT Tu Landeros MD [facility] CPT-62392 Level 3 Est. Patient 08:59:14 CDT Tu Landeros MD [facility] CPT-20513 Level 3 Est. Patient 13:48:35 CDT Fab Morales DO [facility] CPT-28982 Level 4 Est. Patient 10:05:48 CDT Tu Landeros MD [facility] CPT-72212 Level 3 Est. Patient 13:38:42 CDT Marek BANKS [facility] CPT-39877 Level 5 Est. Patient 08:08:39 CDT Jerrica FRANCIS [facility] CPT-31153 Level 4 Est. Patient 14:23:38 CDT Tu Landeros MD [facility] CPT-55314 Level 3 Est. Patient 11:44:04 CDT Tu Landeros MD [facility] CPT-76692 Level 3 Est. Patient 11:03:20 CHOIR DIRECTOR Tu Landeros MD [facility] CPT-83133 Level 3 Est. Patient 11:03:14 CHOIR DIRECTOR Tu Landeros MD [facility] CPT-96577 Level 3 Est. Patient 12:42:49 CDT Tu Landeros MD [facility] CPT-12738 Level 3 Est. Patient 11:52:06 CDT Tu Landeros MD [facility] CPT-86732 Level 3 Est. Patient 13:58:11 CDT Tu Landeros MD [facility] CPT-22912 Level 3 Est. Patient 17:50:07 CDT Fab Morales DO [facility] CPT-74093 Level 3 Est. Patient 12:06:29 CDT Elvira Cervantes MD, PhD [facility] CPT-87755 Level 3 Est. Patient 15:50:32 CDT Tu Landeros MD [facility] CPT-26819 Level 4 Est. Patient 16:08:29 CDT Tu Landeros MD [facility] CPT-31401 Level 3 Est. Patient 16:04:19 CDT Tu Landeros MD [facility] CPT-62236 Level 3 Est. Patient 11:22:30 CHOIR DIRECTOR Tu Landeros MD [facility] CPT-35682 Level 4 Est. Patient 16:24:02 CHOIR DIRECTOR Tu Landeros MD [facility] CPT-40198 Level 3 Est. Patient 17:21:23 CHOIR DIRECTOR Tu Landeros MD [facility] Procedures Code Procedure Name Date Entry Date Standard Description CPT-63545 Shoulder, right, comp min 2V - XRAY USE ONLY 13:50:22 CDT CPT-G0009 Administration of Pneumococcal Vaccine 15:08:26 CDT CPT-85372 Prevnar 13 Intramuscular Suspension 15:08:26 CDT 10/08 CPT-G0439 [facility] Annual Wellness Exam 14:29:22 CDT CPT-00387 Venipuncture Draw Fee 13:15:35 CDT CPT-74206 Magnesium - LAB USE ONLY 11:14:20 CHOIR DIRECTOR CPT-90396 Lipid - LAB USE ONLY 11:14:20 CHOIR DIRECTOR CPT-79235 HGBA1C - LAB USE ONLY 11:14:20 CHOIR DIRECTOR CPT-85276 CMP - LAB USE ONLY 11:14:19 CHOIR DIRECTOR CPT-03027 CBC - LAB USE ONLY 11:14:19 CHOIR DIRECTOR CPT-69978 Venipuncture Draw Fee 11:14:18 CHOIR DIRECTOR CPT-16546 First Vx - Ix admin for Medicare patients 16:46:52 CDT CPT-14138 Fluzone Preservative Free Intramuscular Suspension 16:46 :51 CDT CPT-92105 CBC - LAB USE ONLY 17:14:46 CDT CPT-84911 HGBA1C - LAB USE ONLY 17:14:46 CDT CPT-09499 Venipuncture Draw Fee 17:14:46 CDT CPT-G0438 Initial Annual Wellness Exam 14:13:04 CDT CPT-77697 Breathing Tx 10:06:54 CHOIR DIRECTOR CPT-45265 Postop F/U Visit 10:02:45 CDT CPT-LR Lesion Removal 09:02:56 CDT CPT-JTINJ Asp/Joint Injection 15:51:27 CHOIR DIRECTOR CPT-OV Office Visit 15:52:02 CHOIR DIRECTOR CPT-OV Office Visit 15:45:11 CDT CPT-000 Give Zostavax 14:09:06 CDT CPT-48831 Administration single or combination vaccine inc oral 15 :19:04 CDT CPT-78954 Zoster Vaccine (Zostavax) 15:19:04 CDT CPT-83715 Administration single or combination vaccine inc oral 20 :51:03 CDT CPT-48120 Influenza split virus > age 3 20:51:03 CDT CPT-18268 No Charge Offi Visit 14:52:03 CDT CPT-OV Office Visit 14:57:43 CDT CPT-OV Office Visit 15:22:32 CDT CPT-89398 Administration single or combination vaccine inc oral 11 :33:15 CDT CPT-57952 Influenza split virus > age 3 11:33:15 CDT
--- OUTSIDE RECORDS SUMMARY | 2018-04-25 16:43 | XMS REPORT | Clinical Summary ---
Author Author Admin, SACHI Organization [facility] Address Unknown Phone Unavailable Allergies, Adverse Reactions, [...] ORAL TABLET 1 po BID MAGNESIUM OXIDE 76887098644 Active Tu Landeros MD Active SIMVASTATIN 20 MG ORAL TABLET 0.5 po qHS SIMVASTATIN 77015878601 Active Tu Landeros MD Active DICLOFENAC SODIUM 75 MG ORAL TABLET DELAYED RELEASE 1 po BID PRN Pain DICLOFENAC SODIUM 28207778517 No Longer Active Tu Landeros MD Active GABAPENTIN 100 MG ORAL CAPSULE 1 po TID GABAPENTIN 79270337964 Active Tu Landeros MD Active DICLOFENAC SODIUM 50 MG ORAL TABLET DELAYED RELEASE 1 po BID PRN Pain DICLOFENAC SODIUM 91498897274 No Longer Active Tu Landeros MD Active CYCLOBENZAPRINE HCL 10 MG ORAL TABLET 1 po TID PRN Muscle Spasm CYCLOBENZAPRINE HCL 48658180620 No Longer Active Tu Landreos MD Active INVOKANA 100 MG ORAL TABLET 1 po qd CANAGLIFLOZIN 33640359287 Active Tu Landeros MD Active GLIPIZIDE 5 MG ORAL TABLET 1 po qd GLIPIZIDE 66811963857 No Longer Active Tu Landeros MD Active VENLAFAXINE HCL 75 MG ORAL TABLET 1 po BID VENLAFAXINE HCL 03932618766 Active Tu Landeros MD Active GLIMEPIRIDE 1 MG ORAL TABLET 1 po qd GLIMEPIRIDE 90465069747 No Longer Active Tu Landeros MD Active TRUE METRIX BLOOD GLUCOSE TEST IN VITRO STRIP Test blood sugar BID Dx: E11.9 GLUCOSE BLOOD 49735740375 Active Tu Landeros MD Active TRUE METRIX AIR GLUCOSE METER w/Device KIT Test blood glucose BID Dx: E11.9 BLOOD GLUCOSE MONITORING SUPPL 32779125347 Active Tu Landeros MD Active TRUETEST TEST IN VITRO STRIP test blood sugar twice daily. DX 250.0 GLUCOSE BLOOD 12137916254 No Longer Active Mirna Stanley LPN Active TRUEDRAW LANCING DEVICE test blood sugar twice daily dx: 250.00 LANCET DEVICES 94243568782 No Longer Active Mirna Stanley LPN Active ENALAPRIL MALEATE 20 MG ORAL TABLET 2 po qd ENALAPRIL MALEATE 74389936451 Active Tu Landeros MD Active SUPER B COMPLEX/VITAMIN C ORAL TABLET 1 qd B COMPLEX- C 23654270471 No Longer Active Tu Landeros MD Active ASPIRIN EC 81 MG ORAL TABLET DELAYED RELEASE 1 po qd ASPIRIN 61783692039 Active Tu Landeros MD Active GLUCOSAMINE 500 MG TABS 2 po qd GLUCOSAMINE Active Tu Landeros MD Active FISH OIL 1000 MG ORAL CAPSULE 1 po qd OMEGA-3 FATTY ACIDS 92242693020 Active Tu Landeros MD Active METFORMIN HCL 1000 MG ORAL TABLET 1 po BID METFORMIN HCL 57263496568 Active Tu Landeros MD Active KLOR-CON 10 10 MEQ ORAL TABLET EXTENDED RELEASE 2 po qd POTASSIUM CHLORIDE 75950646004 Active Tu Landeros MD Active FUROSEMIDE 40 MG ORAL TABLET 1 po qd FUROSEMIDE 92621858759 Active Tu Landeros MD Active REQUIP 2 MG ORAL TABLET 1 po qHS PRN Restless legs ROPINIROLE HCL 76325767865 Active Tu Landeros MD Active REQUIP 2 MG ORAL TABLET Take one tablet at bedtime prn ROPINIROLE HCL 83455381206 No Longer Active Tu Landeros MD Active VENTOLIN HFA 108 (90 Base) MCG/ACT INHALATION AEROSOL SOLUTION 1-2 puffs every 4 hours if needed for cough/congestion ALBUTEROL SULFATE 02872989636 No Longer Active Ambika Aden APRN Active ZITHROMAX 250 MG ORAL TABLET 2 po today, then 1 po q days 2-5 AZITHROMYCIN 99990932460 No Longer Active Miranda Suresh APRN Active FLONASE 50 MCG/ACT NASAL SUSPENSION 1 spray each nostril twice daily until bottle empty FLUTICASONE PROPIONATE 91751815777 No Longer Active Tu Landeros MD Active COLACE 100 MG ORAL CAPSULE 1 po BID PRN Constipation DOCUSATE SODIUM 35700629669 Active Tu Landeros MD Active TRUERESULT BLOOD GLUCOSE w/Device KIT test blood sugar twice daily dx 250.00 BLOOD GLUCOSE MONITORING SUPPL 64343967015 No Longer Active Tu Landeros MD Active TRUEDRAW LANCING DEVICE Test twice a day dx 250.0 LANCET DEVICES 80887557522 No Longer Active Tu Landeros MD Active PREDNISONE 20 MG ORAL TABLET 2 tablets once daily for 2 days, then 1 tablet once daily for 2 days PREDNISONE 52964982476 No Longer Active Tu Landeros MD Active DICLOFENAC SODIUM 50 MG ORAL TABLET DELAYED RELEASE 1 tablet by mouth three times a day as needed DICLOFENAC SODIUM 27641683026 No Longer Active Fab Morales DO Active EMBRACE BLOOD GLUCOSE TEST IN VITRO STRIP test blood sugar twice daily DX 250.0 GLUCOSE BLOOD 31660212292 No Longer Active Tu Landeros MD Active TRUETEST TEST IN VITRO STRIP test blood sugar three times daily dx: 250.00 GLUCOSE BLOOD 17189611048 No Longer Active Suze VOGEL Active TRUERESULT BLOOD GLUCOSE w/Device KIT use to test blood sugar tid dx: 250.00 BLOOD GLUCOSE MONITORING SUPPL 18253386977 No Longer Active Suze Corey VOGEL Active ALIGN 4 MG ORAL CAPSULE 1 tid PROBIOTIC PRODUCT 10140514934 No Longer Active Shaun Sy MD Active CIPRO 500 MG ORAL TABLET 1 bid x 14 days start 09-28-13 CIPROFLOXACIN HCL 71087899228 No Longer Active Shaun Sy MD Active TRAMADOL HCL 50 MG ORAL TABLET 1-2 tablets every 6 hours as needed for pain TRAMADOL HCL 57114755250 Active Tu Landeros MD Active HYDROCODONE-ACETAMINOPHEN 5-325 MG ORAL TABLET 1 tab by mouth every 6 hours as needed for pain HYDROCODONE-ACETAMINOPHEN 39754225282 No Longer Active Tu Landeros MD Active OMEPRAZOLE 20 MG ORAL CAPSULE DELAYED RELEASE 1 po q a.m. OMEPRAZOLE 66638715527 Active Fab Morales DO Active GABAPENTIN 100 MG ORAL CAPSULE 1 po bid GABAPENTIN 01553248839 No Longer Active Tu Landeros MD Active B-12 100 MCG ORAL TABLET Take one by mouth daily CYANOCOBALAMIN 17131417558 No Longer Active Tu Landeros MD Active BACTRIM DS 800-160 MG ORAL TABLET 1 bid x 14 day start 09-28-13 SULFAMETHOXAZOLE-TRIMETHOPRIM 18955875461 No Longer Active Tu Landeros MD Active CARVEDILOL 12.5 MG ORAL TABLET 1 po BID CARVEDILOL 03281963057 Active Tu Landeros MD Active TRILIPIX 135 MG ORAL CAPSULE DELAYED RELEASE 1 q hs CHOLINE FENOFIBRATE 02174777637 Active Tu Landeros MD Active FENOFIBRATE 145 MG ORAL TABLET 1 po qd FENOFIBRATE 76370654604 No Longer Active JASPREET Perez Active OMEPRAZOLE 20 MG ORAL TABLET DELAYED RELEASE 1 PO 30 MIN BEFORE 1ST MEAL 2010 OMEPRAZOLE 11023652988 No Longer Active JASPREET Perez Active SIMVASTATIN 40 MG ORAL TABLET Take one by mouth daily SIMVASTATIN 43887905080 No Longer Active JASPREET Perez Active VENLAFAXINE HCL 75 MG ORAL TABLET 1 po BID VENLAFAXINE HCL 20088883897 No Longer Active JASPREET Perez Active CIPRO 500 MG ORAL TABLET 1 tablet by mouth twice daily CIPROFLOXACIN HCL 93006905991 No Longer Active Tu Landeros MD Active VENLAFAXINE HCL 37.5 MG ORAL TABLET 1 po BID VENLAFAXINE HCL 72841223455 No Longer Active Suze VOGEL Active LAMISIL 250 MG ORAL TABLET 1 po qd TERBINAFINE HCL 31627371562 No Longer Active Tu Landeros MD Active LORTAB 5-500 MG ORAL TABLET 1/2 to 1 tablet by mouth every 4 hours as needed for pain HYDROCODONE-ACETAMINOPHEN 59109102802 No Longer Active Tu Landeros MD Active HYDROCODONE-ACETAMINOPHEN 5-500 MG ORAL TABLET take one po Q 4-6 hours prn HYDROCODONE-ACETAMINOPHEN 47183845411 No Longer Active Tu Landeros MD Active BACTRIM DS 800-160 MG ORAL TABLET 1 po BID x 7 days SULFAMETHOXAZOLE-TRIMETHOPRIM 60673967413 No Longer Active Tu Landeros MD Active VENLAFAXINE HCL 75 MG ORAL TABLET 1 po BID VENLAFAXINE HCL 76267535484 No Longer Active Elvira Cervantes MD PhD Active TRAMADOL HCL 50 MG ORAL TABLET 1 tablets every 6 hours as needed for pain TRAMADOL HCL 70962033991 No Longer Active Tu Landeros MD Active ACCU-CHEK FASTCLIX LANCETS Use to check bloodsugar three times daily as needed LANCETS 25843227498 No Longer Active Tu Landeros MD Active ACCU-CHEK KEYONA PLUS IN VITRO STRIP Use for testing bloodsugars three times daily as needed GLUCOSE BLOOD 61605701027 No Longer Active Tu Landeros MD Active ACCU-CHEK KEYONA PLUS w/Device KIT Use for testing bloodsugars three times daily as needed BLOOD GLUCOSE MONITORING SUPPL 66365625223 No Longer Active Tu Landeros MD Active SPIRONOLACTONE 25 MG ORAL TABLET 0.5 tablet by mouth daily 09/09 SPIRONOLACTONE 62294573561 No Longer Active Tu Landeros MD Active ALPRAZOLAM 0.5 MG ORAL TABLET 1 tab every 6hrs as needed ALPRAZOLAM 91383149574 No Longer Active Tu Landeros MD Active AUGMENTIN 875-125 MG ORAL TABLET 1 tab by mouth twice daily with food AMOXICILLIN-POT CLAVULANATE 35876111863 No Longer Active Tu Landeros MD Active PREDNISONE 20 MG ORAL TABLET 2 tabs daily for 3 days, 1 tab daily for 3 days, 1/2 tab daily for 2 days PREDNISONE 81516336913 No Longer Active Tu Landeros MD Active XANAX 0.5 MG ORAL TABLET 1 tablet every 6 hrs prn ALPRAZOLAM 43853036077 No Longer Active Tu Landeros MD Active PREDNISONE 20 MG ORAL TABLET 2 tabs daily for 3 days, 1 tab daily for 3 days, 1/2 tab daily for 2 days PREDNISONE 50372682463 No Longer Active Tu Landeros MD Active TRIAMCINOLONE ACETONIDE 0.1 % EXTERNAL OINTMENT Apply to affected areas TID for up to 2 weeks TRIAMCINOLONE ACETONIDE 03112001028 No Longer Active Tu Landeros MD Active LORTAB 5-500 MG ORAL TABLET 1/2 to 1 tablet by mouth every 4 hours as needed for pain HYDROCODONE-ACETAMINOPHEN 40794499559 No Longer Active Tu Landeros MD Active MULTIVITAMINS TABS Take one by mouth daily MULTIPLE VITAMIN 25915321714 No Longer Active Tu Landeros MD Active MELATONIN 5 MG ORAL TABLET Take one by mouth daily MELATONIN 14358430763 No Longer Active Tu Landeros MD Active SOMA 350 MG ORAL TABLET 1 po q 6 hours prn spasm CARISOPRODOL 05434780233 No Longer Active Tu Landeros MD Active MECLIZINE HCL 25 MG ORAL TABLET CHEWABLE 1 four times a day as needed for dizziness MECLIZINE HCL 72361541485 No Longer Active Fab Morales DO Active ANGEL BREEZE 2 TEST IN VITRO DISK test tid prn GLUCOSE BLOOD 59735725467 No Longer Active Negra Scott RN Active REGLAN 10 MG ORAL TABLET 1 po TID PRN Nausea METOCLOPRAMIDE HCL 06662298919 No Longer Active Tu Landeros MD Active METFORMIN HCL 500 MG ORAL TABLET 1 PO BID METFORMIN HCL 50454613403 No Longer Active Tu Landeros MD Active AMBIEN 10 MG ORAL TABLET 1 tab by mouth at bedtime as needed for sleep 06/10 ZOLPIDEM TARTRATE 13759803421 No Longer Active Tu Landeros MD Active FLUOXETINE HCL 40 MG ORAL CAPSULE 1 po q day FLUOXETINE HCL 59400791203 No Longer Active Mayra Terry Active TRILIPIX 135 MG ORAL CAPSULE DELAYED RELEASE 1 po qd CHOLINE FENOFIBRATE 63423548924 No Longer Active Tu Landeros MD Active AMBIEN 10 MG ORAL TABLET 1 tab by mouth at bedtime as needed for sleep 06/10 AMBIEN 10 MG ORAL TABLET 068689 ZOLPIDEM TARTRATE Inactive METFORMIN HCL 500 MG ORAL TABLET 1 PO BID METFORMIN HCL 500 MG ORAL TABLET 463697 METFORMIN HCL Inactive REGLAN 10 MG ORAL TABLET 1 po TID PRN Nausea REGLAN 10 MG ORAL TABLET 232097 METOCLOPRAMIDE HCL Inactive MECLIZINE HCL 25 MG ORAL TABLET CHEWABLE 1 four times a day as needed for dizziness MECLIZINE HCL 25 MG ORAL TABLET CHEWABLE 544790 MECLIZINE HCL Inactive SOMA 350 MG ORAL TABLET 1 po q 6 hours prn spasm SOMA 350 MG ORAL TABLET 923600 CARISOPRODOL Inactive MELATONIN 5 MG ORAL TABLET Take one by mouth daily MELATONIN 5 MG ORAL TABLET 831545 MELATONIN Inactive MULTIVITAMINS TABS Take one by mouth daily MULTIVITAMINS TABS MULTIPLE VITAMIN Inactive LORTAB 5-500 MG ORAL TABLET 1/2 to 1 tablet by mouth every 4 hours as needed for pain LORTAB 5-500 MG ORAL TABLET 322042 HYDROCODONE-ACETAMINOPHEN Inactive XANAX 0.5 MG ORAL TABLET 1 tablet every 6 hrs prn XANAX 0.5 MG ORAL TABLET 235456 ALPRAZOLAM Inactive AUGMENTIN 875-125 MG ORAL TABLET 1 tab by mouth twice daily with food AUGMENTIN 875-125 MG ORAL TABLET 497869 AMOXICILLIN-POT CLAVULANATE Inactive ALPRAZOLAM 0.5 MG ORAL TABLET 1 tab every 6hrs as needed ALPRAZOLAM 0.5 MG ORAL TABLET 522512 ALPRAZOLAM Inactive SPIRONOLACTONE 25 MG ORAL TABLET 0.5 tablet by mouth daily 09/09 SPIRONOLACTONE 25 MG ORAL TABLET 523554 SPIRONOLACTONE Inactive ACCU-CHEK KEYONA PLUS w/Device KIT [...] times daily as needed ACCU-CHEK FASTCLIX LANCETS 37216992427 LANCETS Inactive TRAMADOL HCL 50 MG ORAL TABLET 1 tablets every 6 hours as needed for pain TRAMADOL HCL 50 MG ORAL TABLET 930621 TRAMADOL HCL Inactive VENLAFAXINE HCL 75 MG ORAL TABLET 1 po BID VENLAFAXINE HCL 75 MG ORAL TABLET 330949 VENLAFAXINE HCL Inactive HYDROCODONE-ACETAMINOPHEN 5-500 MG ORAL TABLET take one po Q 4-6 hours prn HYDROCODONE-ACETAMINOPHEN 5-500 MG ORAL TABLET 785491 HYDROCODONE-ACETAMINOPHEN Inactive LORTAB 5-500 MG ORAL TABLET 1/2 to 1 tablet by mouth every 4 hours as needed for pain LORTAB 5-500 MG ORAL TABLET 052367 HYDROCODONE-ACETAMINOPHEN Inactive LAMISIL 250 MG ORAL TABLET 1 po qd LAMISIL 250 MG ORAL TABLET 442912 TERBINAFINE HCL Inactive VENLAFAXINE HCL 37.5 MG ORAL TABLET 1 po BID VENLAFAXINE HCL 37.5 MG ORAL TABLET 070136 VENLAFAXINE HCL Inactive CIPRO 500 MG ORAL TABLET 1 tablet by mouth twice daily CIPRO 500 MG ORAL TABLET 736034 CIPROFLOXACIN HCL Inactive VENLAFAXINE HCL 75 MG ORAL TABLET 1 po BID VENLAFAXINE HCL 75 MG ORAL TABLET 645141 VENLAFAXINE HCL Inactive SIMVASTATIN 40 MG ORAL TABLET Take one by mouth daily SIMVASTATIN 40 MG ORAL TABLET 553003 SIMVASTATIN Inactive OMEPRAZOLE 20 MG ORAL TABLET DELAYED RELEASE 1 PO 30 MIN BEFORE 1ST MEAL 2010 OMEPRAZOLE 20 MG ORAL TABLET DELAYED RELEASE 581137 OMEPRAZOLE Inactive FENOFIBRATE 145 MG ORAL TABLET 1 po qd FENOFIBRATE 145 MG ORAL TABLET 224609 FENOFIBRATE Inactive BACTRIM DS 800-160 MG ORAL TABLET 1 bid x 14 day start 09-28-13 BACTRIM DS 800-160 MG ORAL TABLET 477861 SULFAMETHOXAZOLE- TRIMETHOPRIM Inactive B-12 100 MCG ORAL TABLET Take one by mouth daily B-12 100 MCG ORAL TABLET CYANOCOBALAMIN Inactive GABAPENTIN 100 MG ORAL CAPSULE 1 po bid GABAPENTIN 100 MG ORAL CAPSULE 542203 GABAPENTIN Inactive HYDROCODONE-ACETAMINOPHEN 5-325 MG ORAL TABLET 1 tab by mouth every 6 hours as needed for pain HYDROCODONE-ACETAMINOPHEN 5-325 MG ORAL TABLET 153769 HYDROCODONE-ACETAMINOPHEN Inactive CIPRO 500 MG ORAL TABLET 1 bid x 14 days start 09-28-13 CIPRO 500 MG ORAL TABLET 735828 CIPROFLOXACIN HCL Inactive ALIGN 4 MG ORAL [...] SODIUM 50 MG ORAL TABLET DELAYED RELEASE 772774 DICLOFENAC SODIUM Inactive PREDNISONE 20 MG ORAL TABLET 2 tablets once daily for 2 days, then 1 tablet once daily for 2 days PREDNISONE 20 MG ORAL TABLET 505205 PREDNISONE Inactive TRUEDRAW LANCING DEVICE Test twice a day dx 250.0 TRUEDRAW LANCING DEVICE LANCET DEVICES Inactive TRUERESULT BLOOD GLUCOSE w/Device KIT test blood sugar twice daily dx 250.00 TRUERESULT BLOOD GLUCOSE w/Device KIT BLOOD GLUCOSE MONITORING SUPPL Inactive FLONASE 50 MCG/ACT NASAL SUSPENSION 1 spray each nostril twice daily until bottle empty FLONASE 50 MCG/ACT NASAL SUSPENSION 8689684 FLUTICASONE PROPIONATE Inactive VENTOLIN HFA 108 (90 Base) MCG/ACT INHALATION AEROSOL SOLUTION 1-2 puffs every 4 hours if needed for cough/congestion VENTOLIN HFA 108 (90 Base) MCG/ACT INHALATION AEROSOL SOLUTION ALBUTEROL SULFATE Inactive REQUIP 2 MG ORAL TABLET Take one tablet at bedtime prn REQUIP 2 MG ORAL TABLET 137078 ROPINIROLE HCL Inactive SUPER B COMPLEX/VITAMIN C ORAL TABLET 1 qd SUPER B COMPLEX/VITAMIN C ORAL TABLET 58370104627 B COMPLEX-C Inactive TRUEDRAW LANCING DEVICE test blood sugar twice daily dx: 250.00 TRUEDRAW LANCING DEVICE LANCET DEVICES Inactive TRUETEST TEST IN VITRO STRIP test blood sugar twice daily. DX 250.0 TRUETEST TEST IN VITRO STRIP GLUCOSE BLOOD Inactive CYCLOBENZAPRINE HCL 10 MG ORAL TABLET 1 po TID PRN Muscle Spasm CYCLOBENZAPRINE HCL 10 MG ORAL TABLET 822454 CYCLOBENZAPRINE HCL Inactive DICLOFENAC SODIUM 50 MG ORAL TABLET DELAYED RELEASE 1 po BID PRN Pain DICLOFENAC SODIUM 50 MG ORAL TABLET DELAYED RELEASE 452104 DICLOFENAC SODIUM Inactive DICLOFENAC SODIUM 75 MG ORAL TABLET DELAYED RELEASE 1 po BID PRN Pain DICLOFENAC SODIUM 75 MG ORAL TABLET DELAYED RELEASE 082928 DICLOFENAC SODIUM Inactive TRIAMCINOLONE ACETONIDE 0.1 % EXTERNAL OINTMENT Apply to affected areas TID for up to 2 weeks TRIAMCINOLONE ACETONIDE 0.1 % EXTERNAL OINTMENT 1801054 TRIAMCINOLONE ACETONIDE Inactive PREDNISONE 20 MG ORAL TABLET 2 tabs daily for 3 days, 1 tab daily for 3 days, 1/2 tab daily for 2 days PREDNISONE 20 MG ORAL TABLET 172186 PREDNISONE Inactive PREDNISONE 20 MG ORAL TABLET 2 tabs daily for 3 days, 1 tab daily for 3 days, 1/2 tab daily for 2 days PREDNISONE 20 MG ORAL TABLET 032754 PREDNISONE Inactive BACTRIM DS 800-160 MG ORAL TABLET 1 po BID x 7 days BACTRIM DS 800-160 MG ORAL TABLET 207866 SULFAMETHOXAZOLE-TRIMETHOPRIM Inactive ZITHROMAX 250 MG ORAL TABLET 2 po today, then 1 po q days 2-5 ZITHROMAX 250 MG ORAL TABLET 087002 AZITHROMYCIN Inactive Advance Directives Directive Description Start Date DISCUSSED WITH PATIENT -- NO DECISION MADE Immunizations Vaccine Administration Date Value Standard Description Seasonal influenza vaccine, injectable, containing preservative, for > 3 years old (Afluria, FluLaval, Fluzone, Fluvirin, Fluarix, Agriflu(>=18 yo)) Fluzone (>3 yrs.) [[id number]] Influenza, seasonal, injectable influenza immunization (Flu Vax) has been administered 02/22/2012 influenza virus vaccine, unspecified formulation Seasonal influenza vaccine, injectable, containing preservative, for > 3 years old (Afluria, FluLaval, Fluzone, Fluvirin, Fluarix, Agriflu(>=18 yo)) Fluzone (>3 yrs.) [[id number]] Influenza, seasonal, injectable Vital Signs Date Name [...] ... - Chemistry sodium, serum 141 mmol/L 898-257 2632/01/16 carbon dioxide, venous blood 28.3 mmol/L 21.0-32.0 [...] 6.7 % 4.3-6.0 cholesterol, serum 106 mg/dL 376-475 7494/01/16 triglyceride, serum, fasting 173 mg/dL 30-200 HDL [...] A1c - Chemistry cholesterol, serum 135 mg/dL 102-927 6715/05/17 HDL cholesterol, serum 41 mg/dL > OR=46 triglyceride, serum, fasting 206 mg/dL <150 LDL cholesterol, serum 53 MG/DL (CALC) mg/dL <130 cholesterol/HDL ratio, serum 3.3 (calc) < OR=5.0 Lab Report: HGBA1C - Chemistry hemoglobin A1C, blood, as % of total hemoglobin 6.5 % 4.3-6.0 Encounters Code Encounter Date Provider Facility CPT-71401 Level 4 Est. Patient 13:42:02 RETAIL DIRECTOR Tu Landeros MD [facility] CPT-97546 Level 3 Est. Patient 14:20:36 CDT Tu Landeros MD [facility] CPT-50012 Level 4 Est. Patient 14:28:34 CDT Tu Landeros MD [facility] CPT-34524 Level 3 Est. Patient 13:33:09 CDT Tu Landeros MD [facility] CPT-57129 Level 4 Est. Patient 14:29:21 CDT Tu Landeros MD [facility] CPT-12202 Level 4 Est. Patient 09:08:17 RETAIL DIRECTOR Tu Landeros MD [facility] CPT-52365 Level 4 Est. Patient 14:40:19 CDT Tu Landeros MD [facility] CPT-79369 Level 4 Est. Patient 14:06:04 RETAIL DIRECTOR Tu Landeros MD [facility] CPT-66963 Level 3 Est. Patient 14:05:18 RETAIL DIRECTOR Tu Landeros MD [facility] CPT-14354 Level 3 Est. Patient 10:06:54 RETAIL DIRECTOR Miranda Suresh APRN [facility] CPT-64204 Level 4 Est. Patient 13:50:18 RETAIL DIRECTOR Tu Landeros MD [facility] CPT-73109 Level 3 Est. Patient 10:30:04 CDT Tu Landeros MD [facility] CPT-39562 Level 4 Est. Patient 11:03:38 CDT Tu Landeros MD [facility] CPT-06587 Level 3 Est. Patient 10:20:44 CDT Fab Morales DO [facility] CPT-03779 Level 4 Est. Patient 14:38:57 CDT Tu Landeros MD [facility] CPT-33265 Level 4 Est. Patient 14:27:39 RETAIL DIRECTOR Tu Landeros MD [facility] CPT-69167 Level 4 Est. Patient 09:45:25 CDT Tu Landeros MD [facility] CPT-29090 Level 4 Est. Patient 09:05:20 RETAIL DIRECTOR Tu Landeros MD [facility] CPT-35119 Level 4 Est. Patient 14:09:06 CDT Tu Landeros MD [facility] CPT-33137 Level 3 Est. Patient 13:36:54 CDT Tu Landeros MD [facility] CPT-94268 Level 3 Est. Patient 08:59:14 CDT Tu Landeros MD [facility] CPT-98305 Level 3 Est. Patient 13:48:35 CDT Fab Morales DO [facility] CPT-40355 Level 4 Est. Patient 10:05:48 CDT Tu Landeros MD [facility] CPT-35088 Level 3 Est. Patient 13:38:42 CDT Marek BANKS [facility] CPT-54843 Level 5 Est. Patient 08:08:39 CDT Jerrica FRANCIS [facility] CPT-67074 Level 4 Est. Patient 14:23:38 CDT Tu Landeros MD [facility] CPT-24868 Level 3 Est. Patient 11:44:04 CDT Tu Landeros MD [facility] CPT-89970 Level 3 Est. Patient 11:03:20 RETAIL DIRECTOR Tu Landeros MD [facility] CPT-67936 Level 3 Est. Patient 11:03:14 RETAIL DIRECTOR Tu Landeros MD [facility] CPT-03302 Level 3 Est. Patient 12:42:49 CDT Tu Landeros MD [facility] CPT-33910 Level 3 Est. Patient 11:52:06 CDT Tu Landeros MD [facility] CPT-42302 Level 3 Est. Patient 13:58:11 CDT Tu Landeros MD [facility] CPT-79654 Level 3 Est. Patient 17:50:07 CDT Fab Moarles DO [facility] CPT-74635 Level 3 Est. Patient 12:06:29 CDT Elvira Cervantes MD, PhD [facility] CPT-69837 Level 3 Est. Patient 15:50:32 CDT Tu Landeros MD [facility] CPT-20548 Level 4 Est. Patient 16:08:29 CDT Tu Landeros MD [facility] CPT-95606 Level 3 Est. Patient 16:04:19 CDT Tu Landeros MD [facility] CPT-60056 Level 3 Est. Patient 11:22:30 RETAIL DIRECTOR Tu Landeros MD [facility] CPT-77219 Level 4 Est. Patient 16:24:02 RETAIL DIRECTOR Tu Landeros MD [facility] CPT-78757 Level 3 Est. Patient 17:21:23 RETAIL DIRECTOR Tu Landeros MD [facility] Procedures Code Procedure Name Date Entry Date Standard Description CPT-76714 Shoulder, right, comp min 2V - XRAY USE ONLY 13:50:22 CDT CPT-G0009 Administration of Pneumococcal Vaccine 15:08:26 CDT CPT-25094 Prevnar 13 Intramuscular Suspension 15:08:26 CDT 10/08 CPT-G0439 [facility] Annual Wellness Exam 14:29:22 CDT CPT-21272 Venipuncture Draw Fee 13:15:35 CDT CPT-32399 Magnesium - LAB USE ONLY 11:14:20 RETAIL DIRECTOR CPT-84461 Lipid - LAB USE ONLY 11:14:20 RETAIL DIRECTOR CPT-97272 HGBA1C - LAB USE ONLY 11:14:20 RETAIL DIRECTOR CPT-91224 CMP - LAB USE ONLY 11:14:19 RETAIL DIRECTOR CPT-72177 CBC - LAB USE ONLY 11:14:19 RETAIL DIRECTOR CPT-50004 Venipuncture Draw Fee 11:14:18 RETAIL DIRECTOR CPT-51737 First Vx - Ix admin for Medicare patients 16:46:52 CDT CPT-78371 Fluzone Preservative Free Intramuscular Suspension 16:46 :51 CDT CPT-99765 CBC - LAB USE ONLY 17:14:46 CDT CPT-07991 HGBA1C - LAB USE ONLY 17:14:46 CDT CPT-05950 Venipuncture Draw Fee 17:14:46 CDT CPT-G0438 Initial Annual Wellness Exam 14:13:04 CDT CPT-47639 Breathing Tx 10:06:54 RETAIL DIRECTOR CPT-02731 Postop F/U Visit 10:02:45 CDT CPT-LR Lesion Removal 09:02:56 CDT CPT-JTINJ Asp/Joint Injection 15:51:27 RETAIL DIRECTOR CPT-OV Office Visit 15:52:02 RETAIL DIRECTOR CPT-OV Office Visit 15:45:11 CDT CPT-000 Give Zostavax 14:09:06 CDT CPT-63871 Administration single or combination vaccine inc oral 15 :19:04 CDT CPT-65242 Zoster Vaccine (Zostavax) 15:19:04 CDT CPT-54753 Administration single or combination vaccine inc oral 20 :51:03 CDT CPT-88091 Influenza split virus > age 3 20:51:03 CDT CPT-09171 No Charge Offi Visit 14:52:03 CDT CPT-OV Office Visit 14:57:43 CDT CPT-OV Office Visit 15:22:32 CDT CPT-94170 Administration single or combination vaccine inc oral 11 :33:15 CDT CPT-83859 Influenza split virus > age 3 11:33:15 CDT
--- OUTSIDE RECORDS SUMMARY | 2018-04-25 16:44 | XMS REPORT | Clinical Summary ---
Author Author Admin, SACHI Organization [employer] Address Unknown Phone Unavailable Allergies, Adverse Reactions, [...] UNSPECIFIED SITE ICD-707.00 Inactive Tu Landeros MD FATIGUE ICD-780.79 Inactive [...] specified ICD- 369.20 Inactive Tu Landeros MD ONYCHOMYCOSIS ICD-110.1 Inactive [...] 2 po qd x 5 days PREDNISONE 26813928177 Active Tu Landeros MD Active PROMETHAZINE-CODEINE 6.25-10 MG/5ML ORAL SYRUP 5ml po q6hr PRN Cough PROMETHAZINE-CODEINE 96289106532 Active Tu Landeros MD Active FLUTICASONE PROPIONATE 50 MCG/ACT NASAL SUSPENSION 2 sprays/nostril qd PRN Congestion/Allergies FLUTICASONE PROPIONATE 48464954801 Active Tu Landeros MD Active NASONEX 50 MCG/ACT NASAL SUSPENSION 2 actuations in each nostril q day 07/15 MOMETASONE FUROATE 91630989348 No Longer Active Tu Landeros MD Active GUAIFENESIN ER 600 MG ORAL TABLET EXTENDED RELEASE 12 HOUR 1 twice a day as needed for congestion GUAIFENESIN 79899988406 Active Lesli Kellogg APRN Active MAGNESIUM OXIDE 400 MG ORAL TABLET 1 po BID MAGNESIUM OXIDE 48717007494 Active Tu Landeros MD Active SIMVASTATIN 20 MG ORAL TABLET 0.5 po qHS SIMVASTATIN 80702502904 Active Tu Landeros MD Active DICLOFENAC SODIUM 75 MG ORAL TABLET DELAYED RELEASE 1 po BID PRN Pain DICLOFENAC SODIUM 11331139283 No Longer Active Tu Landeros MD Active GABAPENTIN 100 MG ORAL CAPSULE 1 po TID GABAPENTIN 75648173890 Active Tu Landeros MD Active DICLOFENAC SODIUM 50 MG ORAL TABLET DELAYED RELEASE 1 po BID PRN Pain DICLOFENAC SODIUM 62430986863 No Longer Active Tu Landeros MD Active CYCLOBENZAPRINE HCL 10 MG ORAL TABLET 1 po TID PRN Muscle Spasm CYCLOBENZAPRINE HCL 20019631216 No Longer Active Tu Landeros MD Active INVOKANA 100 MG ORAL TABLET 1 po qd CANAGLIFLOZIN 70014121621 Active Tu Landeros MD Active GLIPIZIDE 5 MG ORAL TABLET 1 po qd GLIPIZIDE 90620091687 No Longer Active Tu Landeros MD Active VENLAFAXINE HCL 75 MG ORAL TABLET 1 po BID VENLAFAXINE HCL 64900140644 Active Tu Landeros MD Active GLIMEPIRIDE 1 MG ORAL TABLET 1 po qd GLIMEPIRIDE 59508904762 No Longer Active Tu Landeros MD Active TRUE METRIX BLOOD GLUCOSE TEST IN VITRO STRIP Test blood sugar BID Dx: E11.9 GLUCOSE BLOOD 03148813048 Active Tu Landeros MD Active TRUE METRIX AIR GLUCOSE METER w/Device KIT Test blood glucose BID Dx: E11.9 BLOOD GLUCOSE MONITORING SUPPL 65311931260 Active Tu Landeros MD Active TRUETEST TEST IN VITRO STRIP test blood sugar twice daily. DX 250.0 GLUCOSE BLOOD 96478760826 No Longer Active Mirna Stanley LPN Active TRUEDRAW LANCING DEVICE test blood sugar twice daily dx: 250.00 LANCET DEVICES 14100031029 No Longer Active Mirna Stanley LPN Active ENALAPRIL MALEATE 20 MG ORAL TABLET 2 po qd ENALAPRIL MALEATE 56753685246 Active Tu Landeros MD Active SUPER B COMPLEX/VITAMIN C ORAL TABLET 1 qd B COMPLEX- C 47812724762 No Longer Active Tu Landeros MD Active ASPIRIN EC 81 MG ORAL TABLET DELAYED RELEASE 1 po qd ASPIRIN 19103320634 Active Tu Landeros MD Active GLUCOSAMINE 500 MG TABS 2 po qd GLUCOSAMINE Active Tu Landeros MD Active FISH OIL 1000 MG ORAL CAPSULE 1 po qd OMEGA-3 FATTY ACIDS 02248477961 Active Tu Landeros MD Active METFORMIN HCL 1000 MG ORAL TABLET 1 po BID METFORMIN HCL 79583576669 Active Tu Landeros MD Active KLOR-CON 10 10 MEQ ORAL TABLET EXTENDED RELEASE 2 po qd POTASSIUM CHLORIDE 31835945941 Active Tu Landeros MD Active FUROSEMIDE 40 MG ORAL TABLET 1 po qd FUROSEMIDE 74399126694 Active Tu Landeros MD Active REQUIP 2 MG ORAL TABLET 1 po qHS PRN Restless legs ROPINIROLE HCL 60679517831 Active Tu Landeros MD Active REQUIP 2 MG ORAL TABLET Take one tablet at bedtime prn ROPINIROLE HCL 91165708904 No Longer Active Tu Landeros MD Active VENTOLIN HFA 108 (90 Base) MCG/ACT INHALATION AEROSOL SOLUTION 1-2 puffs every 4 hours if needed for cough/congestion ALBUTEROL SULFATE 52409791681 No Longer Active Ambika Aden APRN Active ZITHROMAX 250 MG ORAL TABLET 2 po today, then 1 po q days 2-5 AZITHROMYCIN 18507767881 No Longer Active Miranda Farah APRN Active FLONASE 50 MCG/ACT NASAL SUSPENSION 1 spray each nostril twice daily until bottle empty FLUTICASONE PROPIONATE 93922774353 No Longer Active Tu Landeros MD Active COLACE 100 MG ORAL CAPSULE 1 po BID PRN Constipation DOCUSATE SODIUM 56875997330 Active Tu Landeros MD Active TRUERESULT BLOOD GLUCOSE w/Device KIT test blood sugar twice daily dx 250.00 BLOOD GLUCOSE MONITORING SUPPL 44250461866 No Longer Active Tu Landeros MD Active TRUEDRAW LANCING DEVICE Test twice a day dx 250.0 LANCET DEVICES 44164469099 No Longer Active Tu Landeros MD Active PREDNISONE 20 MG ORAL TABLET 2 tablets once daily for 2 days, then 1 tablet once daily for 2 days PREDNISONE 38871997181 No Longer Active Tu Landeros MD Active DICLOFENAC SODIUM 50 MG ORAL TABLET DELAYED RELEASE 1 tablet by mouth three times a day as needed DICLOFENAC SODIUM 82950068251 No Longer Active Fab Morales DO Active EMBRACE BLOOD GLUCOSE TEST IN VITRO STRIP test blood sugar twice daily DX 250.0 GLUCOSE BLOOD 35541421893 No Longer Active Tu Landeros MD Active TRUETEST TEST IN VITRO STRIP test blood sugar three times daily dx: 250.00 GLUCOSE BLOOD 68560165387 No Longer Active Suze Corey VOGEL Active TRUERESULT BLOOD GLUCOSE w/Device KIT use to test blood sugar tid dx: 250.00 BLOOD GLUCOSE MONITORING SUPPL 04732463248 No Longer Active Suze Corey VOGEL Active ALIGN 4 MG ORAL CAPSULE 1 tid PROBIOTIC PRODUCT 07911943723 No Longer Active Shaun Sy MD Active CIPRO 500 MG ORAL TABLET 1 bid x 14 days start 09-28-13 CIPROFLOXACIN HCL 72740896629 No Longer Active Shaun Sy MD Active TRAMADOL HCL 50 MG ORAL TABLET 1-2 tablets every 6 hours as needed for pain TRAMADOL HCL 08057958165 Active Tu Landeros MD Active HYDROCODONE-ACETAMINOPHEN 5-325 MG ORAL TABLET 1 tab by mouth every 6 hours as needed for pain HYDROCODONE-ACETAMINOPHEN 16428164704 No Longer Active Tu Landeros MD Active OMEPRAZOLE 20 MG ORAL CAPSULE DELAYED RELEASE 1 po q a.m. OMEPRAZOLE 79323334064 Active Fab Morales DO Active GABAPENTIN 100 MG ORAL CAPSULE 1 po bid GABAPENTIN 71272939243 No Longer Active Tu Landeros MD Active B-12 100 MCG ORAL TABLET Take one by mouth daily CYANOCOBALAMIN 51225669264 No Longer Active Tu Landeros MD Active BACTRIM DS 800-160 MG ORAL TABLET 1 bid x 14 day start 14 SULFAMETHOXAZOLE-TRIMETHOPRIM 62151643266 No Longer Active Tu Landeros MD Active CARVEDILOL 12.5 MG ORAL TABLET 1 po BID CARVEDILOL 70961697410 Active Tu Landeros MD Active TRILIPIX 135 MG ORAL CAPSULE DELAYED RELEASE 1 q hs CHOLINE FENOFIBRATE 24144841606 Active Tu Landeros MD Active FENOFIBRATE 145 MG ORAL TABLET 1 po qd FENOFIBRATE 95881694814 No Longer Active JASPREET Perez Active OMEPRAZOLE 20 MG ORAL TABLET DELAYED RELEASE 1 PO 30 MIN BEFORE 1ST MEAL 2010 OMEPRAZOLE 00376916682 No Longer Active JASPREET Perez Active SIMVASTATIN 40 MG ORAL TABLET Take one by mouth daily SIMVASTATIN 76225351306 No Longer Active JASPREET Perez Active VENLAFAXINE HCL 75 MG ORAL TABLET 1 po BID VENLAFAXINE HCL 77631623971 No Longer Active JASPREET Perez Active CIPRO 500 MG ORAL TABLET 1 tablet by mouth twice daily CIPROFLOXACIN HCL 90906265319 No Longer Active Tu Landeros MD Active VENLAFAXINE HCL 37.5 MG ORAL TABLET 1 po BID VENLAFAXINE HCL 83070460709 No Longer Active Suze VOGEL Active LAMISIL 250 MG ORAL TABLET 1 po qd TERBINAFINE HCL 21853910484 No Longer Active Tu Landeros MD Active LORTAB 5-500 MG ORAL TABLET 1/2 to 1 tablet by mouth every 4 hours as needed for pain HYDROCODONE-ACETAMINOPHEN 53467170806 No Longer Active Tu Landeros MD Active HYDROCODONE-ACETAMINOPHEN 5-500 MG ORAL TABLET take one po Q 4-6 hours prn HYDROCODONE-ACETAMINOPHEN 00603228736 No Longer Active Tu Landeros MD Active BACTRIM DS 800-160 MG ORAL TABLET 1 po BID x 7 days SULFAMETHOXAZOLE-TRIMETHOPRIM 68998272460 No Longer Active Tu Landeros MD Active VENLAFAXINE HCL 75 MG ORAL TABLET 1 po BID VENLAFAXINE HCL 70807654698 No Longer Active Elvira Cervantes MD PhD Active TRAMADOL HCL 50 MG ORAL TABLET 1 tablets every 6 hours as needed for pain TRAMADOL HCL 18273036998 No Longer Active Tu Landeros MD Active ACCU-CHEK FASTCLIX LANCETS Use to check bloodsugar three times daily as needed LANCETS 14227496111 No Longer Active Tu Landeros MD Active ACCU-CHEK KEYONA PLUS IN VITRO STRIP Use for testing bloodsugars three times daily as needed GLUCOSE BLOOD 10828767758 No Longer Active Tu Landeros MD Active ACCU-CHEK KEYONA PLUS w/Device KIT Use for testing bloodsugars three times daily as needed BLOOD GLUCOSE MONITORING SUPPL 54416360174 No Longer Active Tu Landeros MD Active SPIRONOLACTONE 25 MG ORAL TABLET 0.5 tablet by mouth daily 09/09 SPIRONOLACTONE 69627888907 No Longer Active Tu Landeros MD Active ALPRAZOLAM 0.5 MG ORAL TABLET 1 tab every 6hrs as needed ALPRAZOLAM 79902411297 No Longer Active Tu Landeros MD Active AUGMENTIN 875-125 MG ORAL TABLET 1 tab by mouth twice daily with food AMOXICILLIN-POT CLAVULANATE 67149418015 No Longer Active Tu Landeros MD Active PREDNISONE 20 MG ORAL TABLET 2 tabs daily for 3 days, 1 tab daily for 3 days, 1/2 tab daily for 2 days PREDNISONE 16523119044 No Longer Active Tu Landeros MD Active XANAX 0.5 MG ORAL TABLET 1 tablet every 6 hrs prn ALPRAZOLAM 71155334441 No Longer Active Tu Landeros MD Active PREDNISONE 20 MG ORAL TABLET 2 tabs daily for 3 days, 1 tab daily for 3 days, 1/2 tab daily for 2 days PREDNISONE 81127076740 No Longer Active Tu Landeros MD Active TRIAMCINOLONE ACETONIDE 0.1 % EXTERNAL OINTMENT Apply to affected areas TID for up to 2 weeks TRIAMCINOLONE ACETONIDE 73013062220 No Longer Active Tu Landeros MD Active LORTAB 5-500 MG ORAL TABLET 1/2 to 1 tablet by mouth every 4 hours as needed for pain HYDROCODONE-ACETAMINOPHEN 89577568584 No Longer Active Tu Landeros MD Active MULTIVITAMINS TABS Take one by mouth daily MULTIPLE VITAMIN 36174572717 No Longer Active Tu Landeros MD Active MELATONIN 5 MG ORAL TABLET Take one by mouth daily MELATONIN 24108320582 No Longer Active Tu Landeros MD Active SOMA 350 MG ORAL TABLET 1 po q 6 hours prn spasm CARISOPRODOL 00598698850 No Longer Active Tu Landeros MD Active MECLIZINE HCL 25 MG ORAL TABLET CHEWABLE 1 four times a day as needed for dizziness MECLIZINE HCL 56663168305 No Longer Active Fab Morales DO Active ANGEL BREEZE 2 TEST IN VITRO DISK test tid prn GLUCOSE BLOOD 17858278151 No Longer Active Negra Scott RN Active REGLAN 10 MG ORAL TABLET 1 po TID PRN Nausea METOCLOPRAMIDE HCL 96975318287 No Longer Active Tu Landeros MD Active METFORMIN HCL 500 MG ORAL TABLET 1 PO BID METFORMIN HCL 61230450853 No Longer Active Tu Landeros MD Active AMBIEN 10 MG ORAL TABLET 1 tab by mouth at bedtime as needed for sleep 06/10 ZOLPIDEM TARTRATE 46713435025 No Longer Active Tu Landreos MD Active FLUOXETINE HCL 40 MG ORAL CAPSULE 1 po q day FLUOXETINE HCL 61614250197 No Longer Active Mayra Terry Active TRILIPIX 135 MG ORAL CAPSULE DELAYED RELEASE 1 po qd CHOLINE FENOFIBRATE 63664559322 No Longer Active Tu Landeros MD Active AMBIEN 10 MG ORAL TABLET 1 tab by mouth at bedtime as needed for sleep 06/10 AMBIEN 10 MG ORAL TABLET 299710 ZOLPIDEM TARTRATE Inactive METFORMIN HCL 500 MG ORAL TABLET 1 PO BID METFORMIN HCL 500 MG ORAL TABLET 318145 METFORMIN HCL Inactive REGLAN 10 MG ORAL TABLET 1 po TID PRN Nausea REGLAN 10 MG ORAL TABLET 355675 METOCLOPRAMIDE HCL Inactive MECLIZINE HCL 25 MG ORAL TABLET CHEWABLE 1 four times a day as needed for dizziness MECLIZINE HCL 25 MG ORAL TABLET CHEWABLE 724702 MECLIZINE HCL Inactive SOMA 350 MG ORAL TABLET 1 po q 6 hours prn spasm SOMA 350 MG ORAL TABLET 426152 CARISOPRODOL Inactive MELATONIN 5 MG ORAL TABLET Take one by mouth daily MELATONIN 5 MG ORAL TABLET 433975 MELATONIN Inactive MULTIVITAMINS TABS Take one by mouth daily MULTIVITAMINS TABS MULTIPLE VITAMIN Inactive LORTAB 5-500 MG ORAL TABLET 1/2 to 1 tablet by mouth every 4 hours as needed for pain LORTAB 5-500 MG ORAL TABLET HYDROCODONE- ACETAMINOPHEN Inactive XANAX 0.5 MG ORAL TABLET 1 tablet every 6 hrs prn XANAX 0.5 MG ORAL TABLET 430561 ALPRAZOLAM Inactive AUGMENTIN 875-125 MG ORAL TABLET 1 tab by mouth twice daily with food AUGMENTIN 875-125 MG ORAL TABLET 990841 AMOXICILLIN-POT CLAVULANATE Inactive ALPRAZOLAM 0.5 MG ORAL TABLET 1 tab every 6hrs as needed ALPRAZOLAM 0.5 MG ORAL TABLET 619945 ALPRAZOLAM Inactive SPIRONOLACTONE 25 MG ORAL TABLET 0.5 tablet by mouth daily 09/09 SPIRONOLACTONE 25 MG ORAL TABLET 952287 SPIRONOLACTONE Inactive ACCU-CHEK KEYONA PLUS w/Device KIT [...] times daily as needed ACCU-CHEK FASTCLIX LANCETS 97387575120 LANCETS Inactive TRAMADOL HCL 50 MG ORAL TABLET 1 tablets every 6 hours as needed for pain TRAMADOL HCL 50 MG ORAL TABLET 127755 TRAMADOL HCL Inactive VENLAFAXINE HCL 75 MG ORAL TABLET 1 po BID VENLAFAXINE HCL 75 MG ORAL TABLET 697516 VENLAFAXINE HCL Inactive HYDROCODONE-ACETAMINOPHEN 5-500 MG ORAL TABLET take one po Q 4-6 hours prn HYDROCODONE-ACETAMINOPHEN 5-500 MG ORAL TABLET 213390 HYDROCODONE-ACETAMINOPHEN Inactive LORTAB 5-500 MG ORAL TABLET 1/2 to 1 tablet by mouth every 4 hours as needed for pain LORTAB 5-500 MG ORAL TABLET HYDROCODONE- ACETAMINOPHEN Inactive LAMISIL 250 MG ORAL TABLET 1 po qd LAMISIL 250 MG ORAL TABLET 120594 TERBINAFINE HCL Inactive VENLAFAXINE HCL 37.5 MG ORAL TABLET 1 po BID VENLAFAXINE HCL 37.5 MG ORAL TABLET 171225 VENLAFAXINE HCL Inactive CIPRO 500 MG ORAL TABLET 1 tablet by mouth twice daily CIPRO 500 MG ORAL TABLET 449392 CIPROFLOXACIN HCL Inactive VENLAFAXINE HCL 75 MG ORAL TABLET 1 po BID VENLAFAXINE HCL 75 MG ORAL TABLET 322377 VENLAFAXINE HCL Inactive SIMVASTATIN 40 MG ORAL TABLET Take one by mouth daily SIMVASTATIN 40 MG ORAL TABLET 983694 SIMVASTATIN Inactive OMEPRAZOLE 20 MG ORAL TABLET DELAYED RELEASE 1 PO 30 MIN BEFORE 1ST MEAL 2010 OMEPRAZOLE 20 MG ORAL TABLET DELAYED RELEASE 481843 OMEPRAZOLE Inactive FENOFIBRATE 145 MG ORAL TABLET 1 po qd FENOFIBRATE 145 MG ORAL TABLET 525707 FENOFIBRATE Inactive BACTRIM DS 800-160 MG ORAL TABLET 1 bid x 14 day start 09-28-13 BACTRIM DS 800-160 MG ORAL TABLET 235194 SULFAMETHOXAZOLE- TRIMETHOPRIM Inactive B-12 100 MCG ORAL TABLET Take one by mouth daily B-12 100 MCG ORAL TABLET CYANOCOBALAMIN Inactive GABAPENTIN 100 MG ORAL CAPSULE 1 po bid GABAPENTIN 100 MG ORAL CAPSULE 556198 GABAPENTIN Inactive HYDROCODONE-ACETAMINOPHEN 5-325 MG ORAL TABLET 1 tab by mouth every 6 hours as needed for pain HYDROCODONE-ACETAMINOPHEN 5-325 MG ORAL TABLET 102349 HYDROCODONE-ACETAMINOPHEN Inactive CIPRO 500 MG ORAL TABLET 1 bid x 14 days start 09-28-13 CIPRO 500 MG ORAL TABLET 525589 CIPROFLOXACIN HCL Inactive ALIGN 4 MG ORAL [...] SODIUM 50 MG ORAL TABLET DELAYED RELEASE 363198 DICLOFENAC SODIUM Inactive PREDNISONE 20 MG ORAL TABLET 2 tablets once daily for 2 days, then 1 tablet once daily for 2 days PREDNISONE 20 MG ORAL TABLET 940774 PREDNISONE Inactive TRUEDRAW LANCING DEVICE Test twice a day dx 250.0 TRUEDRAW LANCING DEVICE LANCET DEVICES Inactive TRUERESULT BLOOD GLUCOSE w/Device KIT test blood sugar twice daily dx 250.00 TRUERESULT BLOOD GLUCOSE w/Device KIT BLOOD GLUCOSE MONITORING SUPPL Inactive FLONASE 50 MCG/ACT NASAL SUSPENSION 1 spray each nostril twice daily until bottle empty FLONASE 50 MCG/ACT NASAL SUSPENSION 5254263 FLUTICASONE PROPIONATE Inactive VENTOLIN HFA 108 (90 Base) MCG/ACT INHALATION AEROSOL SOLUTION 1-2 puffs every 4 hours if needed for cough/congestion VENTOLIN HFA 108 (90 Base) MCG/ACT INHALATION AEROSOL SOLUTION ALBUTEROL SULFATE Inactive REQUIP 2 MG ORAL TABLET Take one tablet at bedtime prn REQUIP 2 MG ORAL TABLET 465570 ROPINIROLE HCL Inactive SUPER B COMPLEX/VITAMIN C ORAL TABLET 1 qd SUPER B COMPLEX/VITAMIN C ORAL TABLET 56784919639 B COMPLEX-C Inactive TRUEDRAW LANCING DEVICE test blood sugar twice daily dx: 250.00 TRUEDRAW LANCING DEVICE LANCET DEVICES Inactive TRUETEST TEST IN VITRO STRIP test blood sugar twice daily. DX 250.0 TRUETEST TEST IN VITRO STRIP GLUCOSE BLOOD Inactive CYCLOBENZAPRINE HCL 10 MG ORAL TABLET 1 po TID PRN Muscle Spasm CYCLOBENZAPRINE HCL 10 MG ORAL TABLET 763241 CYCLOBENZAPRINE HCL Inactive DICLOFENAC SODIUM 50 MG ORAL TABLET DELAYED RELEASE 1 po BID PRN Pain DICLOFENAC SODIUM 50 MG ORAL TABLET DELAYED RELEASE 499829 DICLOFENAC SODIUM Inactive DICLOFENAC SODIUM 75 MG ORAL TABLET DELAYED RELEASE 1 po BID PRN Pain DICLOFENAC SODIUM 75 MG ORAL TABLET DELAYED RELEASE 522301 DICLOFENAC SODIUM Inactive NASONEX 50 MCG/ACT NASAL SUSPENSION 2 actuations in each nostril q day 07/15 NASONEX 50 MCG/ACT NASAL SUSPENSION 9633645 MOMETASONE FUROATE Inactive TRIAMCINOLONE ACETONIDE 0.1 % EXTERNAL OINTMENT Apply to affected areas TID for up to 2 weeks TRIAMCINOLONE ACETONIDE 0.1 % EXTERNAL OINTMENT 1133919 TRIAMCINOLONE ACETONIDE Inactive PREDNISONE 20 MG ORAL TABLET 2 tabs daily for 3 days, 1 tab daily for 3 days, 1/2 tab daily for 2 days PREDNISONE 20 MG ORAL TABLET 242029 PREDNISONE Inactive PREDNISONE 20 MG ORAL TABLET 2 tabs daily for 3 days, 1 tab daily for 3 days, 1/2 tab daily for 2 days PREDNISONE 20 MG ORAL TABLET 430802 PREDNISONE Inactive BACTRIM DS 800-160 MG ORAL TABLET 1 po BID x 7 days BACTRIM DS 800-160 MG ORAL TABLET 042323 SULFAMETHOXAZOLE-TRIMETHOPRIM Inactive ZITHROMAX 250 MG ORAL TABLET 2 po today, then 1 po q days 2-5 ZITHROMAX 250 MG ORAL TABLET 426858 AZITHROMYCIN Inactive Advance Directives Directive Description Start Date DISCUSSED WITH PATIENT -- NO DECISION MADE Immunizations Vaccine Administration Date Value Standard Description Seasonal influenza vaccine, injectable, containing preservative, for > 3 years old (Afluria, FluLaval, Fluzone, Fluvirin, Fluarix, Agriflu(>=18 yo)) Fluzone (>3 yrs.) [[id number]] Influenza, seasonal, injectable influenza immunization (Flu Vax) has been administered 02/22/2012 influenza virus vaccine, unspecified formulation Seasonal influenza vaccine, injectable, containing preservative, for > 3 years old (Afluria, FluLaval, Fluzone, Fluvirin, Fluarix, Agriflu(>=18 yo)) Fluzone (>3 yrs.) [[id number]] Influenza, seasonal, injectable Vital Signs Date Name [...] ... - Chemistry sodium, serum 141 mmol/L 536-604 7284/01/16 carbon dioxide, venous blood 28.3 mmol/L 21.0-32.0 [...] 6.7 % 4.3-6.0 cholesterol, serum 106 mg/dL 736-749 8136/01/16 triglyceride, serum, fasting 173 mg/dL 30-200 HDL cholesterol, serum 29 mg/dL 32-60 LDL cholesterol, serum 42 mg/dL 0-130 albumin/creatinine ratio, urine <30 mg/g Normal mg/g mg/g{creat} 0-29 Lab Report: CBC, Comp. Metabolic Panel, HGBA1C, Lipid Panel, Magnesium, ... - Hematology erythrocyte (RBC) count 4.70 10^6/MM^3 10*6/mm3 3.80-5.80 hemoglobin, blood 13.4 g/dL 12.0-16.0 hematocrit, blood 42.5 % 37.0-47.0 mean corpuscular volume, RBC 90 fL 80-97 mean corpuscular hemoglobin, RBC 28.4 pg 27.0-31.2 leukocyte count, blood 6.9 10^3/MM^3 10*3/mm3 4.6-10.2 mean corpuscular hemoglobin concentration, RBC 31.5 G/DL [...] 4.3-6.0 Encounters Code Encounter Date Provider Facility CPT-47311 Level 3 Est. Patient 10:13:19 MOTOR VEHICLE LICENCE EXAMINER Lesli Kellogg APRN [facility] CPT-44159 Level 4 Est. Patient 13:42:02 MOTOR VEHICLE LICENCE EXAMINER Tu Landeros MD [facility] CPT-71500 Level 3 Est. Patient 14:20:36 CDT Tu Landeros MD [facility] CPT-80948 Level 4 Est. Patient 14:28:34 CDT Tu Landeros MD [facility] CPT-52614 Level 3 Est. Patient 13:33:09 CDT Tu Landeros MD [facility] CPT-87116 Level 4 Est. Patient 14:29:21 CDT Tu Landeros MD [facility] CPT-98094 Level 4 Est. Patient 09:08:17 MOTOR VEHICLE LICENCE EXAMINER Tu Landeros MD [facility] CPT-77012 Level 4 Est. Patient 14:40:19 CDT Tu Landeros MD [facility] CPT-38785 Level 4 Est. Patient 14:06:04 MOTOR VEHICLE LICENCE EXAMINER Tu Landeros MD [facility] CPT-92205 Level 3 Est. Patient 14:05:18 MOTOR VEHICLE LICENCE EXAMINER Tu Landeros MD [facility] CPT-77941 Level 3 Est. Patient 10:06:54 MOTOR VEHICLE LICENCE EXAMINER Miranda Farah APRN [facility] CPT-90303 Level 4 Est. Patient 13:50:18 MOTOR VEHICLE LICENCE EXAMINER Tu Landeros MD [facility] CPT-43443 Level 3 Est. Patient 10:30:04 CDT Tu Landeros MD [facility] CPT-66809 Level 4 Est. Patient 11:03:38 CDT Tu Landeros MD [facility] CPT-22840 Level 3 Est. Patient 10:20:44 CDT Fab Morales DO [facility] CPT-43963 Level 4 Est. Patient 14:38:57 CDT Tu Landeros MD [facility] CPT-81552 Level 4 Est. Patient 14:27:39 MOTOR VEHICLE LICENCE EXAMINER Tu Landeros MD [facility] CPT-50435 Level 4 Est. Patient 09:45:25 CDT Tu Landeros MD [facility] CPT-69480 Level 4 Est. Patient 09:05:20 MOTOR VEHICLE LICENCE EXAMINER Tu Landeros MD [facility] CPT-51224 Level 4 Est. Patient 14:09:06 CDT Tu Landeros MD [facility] CPT-38766 Level 3 Est. Patient 13:36:54 CDT Tu Landeros MD [facility] CPT-72048 Level 3 Est. Patient 08:59:14 CDT Tu Landeros MD [facility] CPT-32205 Level 3 Est. Patient 13:48:35 CDT Fab Morales DO [facility] CPT-83385 Level 4 Est. Patient 10:05:48 CDT Tu Landeros MD [facility] CPT-70795 Level 3 Est. Patient 13:38:42 CDT Marek BANKS [facility] CPT-57119 Level 5 Est. Patient 08:08:39 CDT Jerrica FRANCIS [facility] CPT-66857 Level 4 Est. Patient 14:23:38 CDT Tu Landeros MD [facility] CPT-15315 Level 3 Est. Patient 11:44:04 CDT Tu Landeros MD [facility] CPT-46085 Level 3 Est. Patient 11:03:20 MOTOR VEHICLE LICENCE EXAMINER Tu Landeros MD [facility] CPT-87256 Level 3 Est. Patient 11:03:14 MOTOR VEHICLE LICENCE EXAMINER Tu Landeros MD [facility] CPT-56361 Level 3 Est. Patient 12:42:49 CDT Tu Landeros MD [facility] CPT-43998 Level 3 Est. Patient 11:52:06 CDT Tu Landeros MD [facility] CPT-14257 Level 3 Est. Patient 13:58:11 CDT Tu Landeros MD [facility] CPT-37591 Level 3 Est. Patient 17:50:07 CDT Fab Morales DO [facility] CPT-83345 Level 3 Est. Patient 12:06:29 CDT Elvira Cervantes MD [facility] CPT-89422 Level 3 Est. Patient 15:50:32 CDT Tu Landeros MD [facility] CPT-54674 Level 4 Est. Patient 16:08:29 CDT Tu Landeros MD [facility] CPT-95492 Level 3 Est. Patient 16:04:19 CDT Tu Landeros MD [facility] CPT-94177 Level 3 Est. Patient 11:22:30 MOTOR VEHICLE LICENCE EXAMINER Tu Landeros MD [facility] CPT-17089 Level 4 Est. Patient 16:24:02 MOTOR VEHICLE LICENCE EXAMINER Tu Landeros MD [facility] CPT-24993 Level 3 Est. Patient 17:21:23 MOTOR VEHICLE LICENCE EXAMINER Tu Landeros MD [facility] Procedures Code Procedure Name Date Entry Date Standard Description CPT-75811 Shoulder, right, comp min 2V - XRAY USE ONLY 13:50:22 CDT CPT-G0009 Administration of Pneumococcal Vaccine 15:08:26 CDT CPT-25282 Prevnar 13 Intramuscular Suspension 15:08:26 CDT 10/08 CPT-G0439 [facility] Annual Wellness Exam 14:29:22 CDT CPT-00593 Venipuncture Draw Fee 13:15:35 CDT CPT-78820 Magnesium - LAB USE ONLY 11:14:20 MOTOR VEHICLE LICENCE EXAMINER CPT-67170 Lipid - LAB USE ONLY 11:14:20 MOTOR VEHICLE LICENCE EXAMINER CPT-16792 HGBA1C - LAB USE ONLY 11:14:20 MOTOR VEHICLE LICENCE EXAMINER CPT-36390 CMP - LAB USE ONLY 11:14:19 MOTOR VEHICLE LICENCE EXAMINER CPT-22419 CBC - LAB USE ONLY 11:14:19 MOTOR VEHICLE LICENCE EXAMINER CPT-59002 Venipuncture Draw Fee 11:14:18 MOTOR VEHICLE LICENCE EXAMINER CPT-76761 First Vx - Ix admin for Medicare patients 16:46:52 CDT CPT-66710 Fluzone Preservative Free Intramuscular Suspension 16:46 :51 CDT CPT-50803 CBC - LAB USE ONLY 17:14:46 CDT CPT-75302 HGBA1C - LAB USE ONLY 17:14:46 CDT CPT-03129 Venipuncture Draw Fee 17:14:46 CDT CPT-G0438 Initial Annual Wellness Exam 14:13:04 CDT CPT-66276 Breathing Tx 10:06:54 [employer] CPT-95197 Postop F/U Visit 10:02:45 CDT CPT-LR Lesion Removal 09:02:56 CDT CPT-JTINJ Asp/Joint Injection 15:51:27 [employer]ER CPT-OV Office Visit 15:52:02 [employer]ER CPT-OV Office Visit 15:45:11 CDT CPT-000 Give Zostavax 14:09:06 CDT CPT-54681 Administration single or combination vaccine inc oral 15 :19:04 CDT CPT-12760 Zoster Vaccine (Zostavax) 15:19:04 CDT CPT-53195 Administration single or combination vaccine inc oral 20 :51:03 CDT CPT-13528 Influenza split virus > age 3 20:51:03 CDT CPT-36332 No Charge Offi Visit 14:52:03 CDT CPT-OV Office Visit 14:57:43 CDT CPT-OV Office Visit 15:22:32 CDT CPT-25498 Administration single or combination vaccine inc oral 11 :33:15 CDT CPT-76434 Influenza split virus > age 3 11:33:15 CDT
--- OUTSIDE RECORDS SUMMARY | 2018-04-25 16:51 | XMS REPORT | Clinical Summary ---
Author Author Admin, SACHI Organization [employer] Address Unknown Phone Unavailable Allergies, Adverse Reactions, [...] ORAL TABLET 1 po BID MAGNESIUM OXIDE 82119289523 Active Tu Landeros MD Active SIMVASTATIN 20 MG ORAL TABLET 0.5 po qHS SIMVASTATIN 86201563347 Active Tu Landeros MD Active DICLOFENAC SODIUM 75 MG ORAL TABLET DELAYED RELEASE 1 po BID PRN Pain DICLOFENAC SODIUM 66639169231 No Longer Active Tu Landeros MD Active GABAPENTIN 100 MG ORAL CAPSULE 1 po TID GABAPENTIN 40468372310 Active Tu Landeros MD Active DICLOFENAC SODIUM 50 MG ORAL TABLET DELAYED RELEASE 1 po BID PRN Pain DICLOFENAC SODIUM 49153434257 No Longer Active Tu Landeros MD Active CYCLOBENZAPRINE HCL 10 MG ORAL TABLET 1 po TID PRN Muscle Spasm CYCLOBENZAPRINE HCL 45783575526 No Longer Active Tu Landeros MD Active INVOKANA 100 MG ORAL TABLET 1 po qd CANAGLIFLOZIN 93938493505 Active Tu Landeros MD Active GLIPIZIDE 5 MG ORAL TABLET 1 po qd GLIPIZIDE 79933268143 No Longer Active Tu Landeros MD Active VENLAFAXINE HCL 75 MG ORAL TABLET 1 po BID VENLAFAXINE HCL 96831053247 Active Tu Landeros MD Active GLIMEPIRIDE 1 MG ORAL TABLET 1 po qd GLIMEPIRIDE 56601556991 No Longer Active Tu Landeros MD Active TRUE METRIX BLOOD GLUCOSE TEST IN VITRO STRIP Test blood sugar BID Dx: E11.9 GLUCOSE BLOOD 00901691747 Active Tu Landeros MD Active TRUE METRIX AIR GLUCOSE METER w/Device KIT Test blood glucose BID Dx: E11.9 BLOOD GLUCOSE MONITORING SUPPL 98723167103 Active Tu Landeros MD Active TRUETEST TEST IN VITRO STRIP test blood sugar twice daily. DX 250.0 GLUCOSE BLOOD 18090694281 No Longer Active Mirna Stanley LPN Active TRUEDRAW LANCING DEVICE test blood sugar twice daily dx: 250.00 LANCET DEVICES 92684902865 No Longer Active Mirna Stanley LPN Active ENALAPRIL MALEATE 20 MG ORAL TABLET 2 po qd ENALAPRIL MALEATE 65996225962 Active Tu Landeros MD Active SUPER B COMPLEX/VITAMIN C ORAL TABLET 1 qd B COMPLEX- C 59299111412 No Longer Active Tu Landeros MD Active ASPIRIN EC 81 MG ORAL TABLET DELAYED RELEASE 1 po qd ASPIRIN 83343970791 Active Tu Landeros MD Active GLUCOSAMINE 500 MG TABS 2 po qd GLUCOSAMINE Active Tu Landeros MD Active FISH OIL 1000 MG ORAL CAPSULE 1 po qd OMEGA-3 FATTY ACIDS 05449111632 Active Tu Landeros MD Active METFORMIN HCL 1000 MG ORAL TABLET 1 po BID METFORMIN HCL 42136370940 Active Tu Landeros MD Active KLOR-CON 10 10 MEQ ORAL TABLET EXTENDED RELEASE 2 po qd POTASSIUM CHLORIDE 10335800203 Active Tu Landeros MD Active FUROSEMIDE 40 MG ORAL TABLET 1 po qd FUROSEMIDE 12839148030 Active Tu Landeros MD Active REQUIP 2 MG ORAL TABLET 1 po qHS PRN Restless legs ROPINIROLE HCL 11087478900 Active Tu Landeros MD Active REQUIP 2 MG ORAL TABLET Take one tablet at bedtime prn ROPINIROLE HCL 46065268402 No Longer Active Tu Landeros MD Active VENTOLIN HFA 108 (90 Base) MCG/ACT INHALATION AEROSOL SOLUTION 1-2 puffs every 4 hours if needed for cough/congestion ALBUTEROL SULFATE 83387192609 No Longer Active Ambika Aden APRN Active ZITHROMAX 250 MG ORAL TABLET 2 po today, then 1 po q days 2-5 AZITHROMYCIN 27808764874 No Longer Active Miranda Suresh APRN Active FLONASE 50 MCG/ACT NASAL SUSPENSION 1 spray each nostril twice daily until bottle empty FLUTICASONE PROPIONATE 70847739647 No Longer Active Tu Landeros MD Active COLACE 100 MG ORAL CAPSULE 1 po BID PRN Constipation DOCUSATE SODIUM 99191630278 Active Tu Landeros MD Active TRUERESULT BLOOD GLUCOSE w/Device KIT test blood sugar twice daily dx 250.00 BLOOD GLUCOSE MONITORING SUPPL 35971549454 No Longer Active Tu Landeros MD Active TRUEDRAW LANCING DEVICE Test twice a day dx 250.0 LANCET DEVICES 41930407851 No Longer Active Tu Landeros MD Active PREDNISONE 20 MG ORAL TABLET 2 tablets once daily for 2 days, then 1 tablet once daily for 2 days PREDNISONE 70253639755 No Longer Active Tu Landeros MD Active DICLOFENAC SODIUM 50 MG ORAL TABLET DELAYED RELEASE 1 tablet by mouth three times a day as needed DICLOFENAC SODIUM 96649155179 No Longer Active Fab Morales DO Active EMBRACE BLOOD GLUCOSE TEST IN VITRO STRIP test blood sugar twice daily DX 250.0 GLUCOSE BLOOD 13876840191 No Longer Active Tu Landeros MD Active TRUETEST TEST IN VITRO STRIP test blood sugar three times daily dx: 250.00 GLUCOSE BLOOD 98018726078 No Longer Active Suze VOGEL Active TRUERESULT BLOOD GLUCOSE w/Device KIT use to test blood sugar tid dx: 250.00 BLOOD GLUCOSE MONITORING SUPPL 66172522518 No Longer Active Suze Corey VOGEL Active ALIGN 4 MG ORAL CAPSULE 1 tid PROBIOTIC PRODUCT 94704515860 No Longer Active Shaun Sy MD Active CIPRO 500 MG ORAL TABLET 1 bid x 14 days start 09-28-13 CIPROFLOXACIN HCL 49745350100 No Longer Active Shaun Sy MD Active TRAMADOL HCL 50 MG ORAL TABLET 1-2 tablets every 6 hours as needed for pain TRAMADOL HCL 38909028995 Active Tu Landeros MD Active HYDROCODONE-ACETAMINOPHEN 5-325 MG ORAL TABLET 1 tab by mouth every 6 hours as needed for pain HYDROCODONE-ACETAMINOPHEN 85977352232 No Longer Active Tu Landeros MD Active OMEPRAZOLE 20 MG ORAL CAPSULE DELAYED RELEASE 1 po q a.m. OMEPRAZOLE 15937683257 Active Fab Morales DO Active GABAPENTIN 100 MG ORAL CAPSULE 1 po bid GABAPENTIN 25964032322 No Longer Active Tu Landeros MD Active B-12 100 MCG ORAL TABLET Take one by mouth daily CYANOCOBALAMIN 49080854546 No Longer Active Tu Landeros MD Active BACTRIM DS 800-160 MG ORAL TABLET 1 bid x 14 day start 09-28-13 SULFAMETHOXAZOLE-TRIMETHOPRIM 15711134197 No Longer Active Tu Landeros MD Active CARVEDILOL 12.5 MG ORAL TABLET 1 po BID CARVEDILOL 08119395952 Active Tu Landeros MD Active TRILIPIX 135 MG ORAL CAPSULE DELAYED RELEASE 1 q hs CHOLINE FENOFIBRATE 34425210558 Active Tu Landeros MD Active FENOFIBRATE 145 MG ORAL TABLET 1 po qd FENOFIBRATE 41417540309 No Longer Active JASPREET Perez Active OMEPRAZOLE 20 MG ORAL TABLET DELAYED RELEASE 1 PO 30 MIN BEFORE 1ST MEAL 2010 OMEPRAZOLE 28572617817 No Longer Active JASPREET Perez Active SIMVASTATIN 40 MG ORAL TABLET Take one by mouth daily SIMVASTATIN 87006019076 No Longer Active JASPREET Perez Active VENLAFAXINE HCL 75 MG ORAL TABLET 1 po BID VENLAFAXINE HCL 03323755414 No Longer Active JASPREET Perez Active CIPRO 500 MG ORAL TABLET 1 tablet by mouth twice daily CIPROFLOXACIN HCL 73053591697 No Longer Active Tu Landeros MD Active VENLAFAXINE HCL 37.5 MG ORAL TABLET 1 po BID VENLAFAXINE HCL 62329673309 No Longer Active Suze VOGEL Active LAMISIL 250 MG ORAL TABLET 1 po qd TERBINAFINE HCL 30671756646 No Longer Active Tu Landeros MD Active LORTAB 5-500 MG ORAL TABLET 1/2 to 1 tablet by mouth every 4 hours as needed for pain HYDROCODONE-ACETAMINOPHEN 66970187383 No Longer Active Tu Landeros MD Active HYDROCODONE-ACETAMINOPHEN 5-500 MG ORAL TABLET take one po Q 4-6 hours prn HYDROCODONE-ACETAMINOPHEN 24064963448 No Longer Active Tu Landeros MD Active BACTRIM DS 800-160 MG ORAL TABLET 1 po BID x 7 days SULFAMETHOXAZOLE-TRIMETHOPRIM 07161710918 No Longer Active Tu Landeros MD Active VENLAFAXINE HCL 75 MG ORAL TABLET 1 po BID VENLAFAXINE HCL 38984253602 No Longer Active Elvira Cervantes MD PhD Active TRAMADOL HCL 50 MG ORAL TABLET 1 tablets every 6 hours as needed for pain TRAMADOL HCL 81845249644 No Longer Active Tu Landeros MD Active ACCU-CHEK FASTCLIX LANCETS Use to check bloodsugar three times daily as needed LANCETS 19321513424 No Longer Active Tu Landeros MD Active ACCU-CHEK KEYONA PLUS IN VITRO STRIP Use for testing bloodsugars three times daily as needed GLUCOSE BLOOD 61744041124 No Longer Active Tu Landeros MD Active ACCU-CHEK KEYONA PLUS w/Device KIT Use for testing bloodsugars three times daily as needed BLOOD GLUCOSE MONITORING SUPPL 92206450915 No Longer Active Tu Landeros MD Active SPIRONOLACTONE 25 MG ORAL TABLET 0.5 tablet by mouth daily 09/09 SPIRONOLACTONE 19947699819 No Longer Active Tu Landeros MD Active ALPRAZOLAM 0.5 MG ORAL TABLET 1 tab every 6hrs as needed ALPRAZOLAM 48782730547 No Longer Active Tu Landeros MD Active AUGMENTIN 875-125 MG ORAL TABLET 1 tab by mouth twice daily with food AMOXICILLIN-POT CLAVULANATE 52474416632 No Longer Active Tu Landeros MD Active PREDNISONE 20 MG ORAL TABLET 2 tabs daily for 3 days, 1 tab daily for 3 days, 1/2 tab daily for 2 days PREDNISONE 45242459977 No Longer Active Tu Landeros MD Active XANAX 0.5 MG ORAL TABLET 1 tablet every 6 hrs prn ALPRAZOLAM 53719479355 No Longer Active Tu Landeros MD Active PREDNISONE 20 MG ORAL TABLET 2 tabs daily for 3 days, 1 tab daily for 3 days, 1/2 tab daily for 2 days PREDNISONE 22227437229 No Longer Active Tu Landeros MD Active TRIAMCINOLONE ACETONIDE 0.1 % EXTERNAL OINTMENT Apply to affected areas TID for up to 2 weeks TRIAMCINOLONE ACETONIDE 23250519930 No Longer Active Tu Landeros MD Active LORTAB 5-500 MG ORAL TABLET 1/2 to 1 tablet by mouth every 4 hours as needed for pain HYDROCODONE-ACETAMINOPHEN 41301398993 No Longer Active Tu Landeros MD Active MULTIVITAMINS TABS Take one by mouth daily MULTIPLE VITAMIN 68973469009 No Longer Active Tu Landeros MD Active MELATONIN 5 MG ORAL TABLET Take one by mouth daily MELATONIN 96970487120 No Longer Active Tu Landeros MD Active SOMA 350 MG ORAL TABLET 1 po q 6 hours prn spasm CARISOPRODOL 53461970118 No Longer Active Tu Landeros MD Active MECLIZINE HCL 25 MG ORAL TABLET CHEWABLE 1 four times a day as needed for dizziness MECLIZINE HCL 21744124227 No Longer Active Fab Morales DO Active ANGEL BREEZE 2 TEST IN VITRO DISK test tid prn GLUCOSE BLOOD 88487646772 No Longer Active Negra Scott RN Active REGLAN 10 MG ORAL TABLET 1 po TID PRN Nausea METOCLOPRAMIDE HCL 04452106332 No Longer Active Tu Landeros MD Active METFORMIN HCL 500 MG ORAL TABLET 1 PO BID METFORMIN HCL 29709880361 No Longer Active Tu Landeros MD Active AMBIEN 10 MG ORAL TABLET 1 tab by mouth at bedtime as needed for sleep 06/10 ZOLPIDEM TARTRATE 18698051097 No Longer Active Tu Landeros MD Active FLUOXETINE HCL 40 MG ORAL CAPSULE 1 po q day FLUOXETINE HCL 53638260727 No Longer Active Mayra Terry Active TRILIPIX 135 MG ORAL CAPSULE DELAYED RELEASE 1 po qd CHOLINE FENOFIBRATE 14717162649 No Longer Active Tu Landeros MD Active AMBIEN 10 MG ORAL TABLET 1 tab by mouth at bedtime as needed for sleep 06/10 AMBIEN 10 MG ORAL TABLET 911825 ZOLPIDEM TARTRATE Inactive METFORMIN HCL 500 MG ORAL TABLET 1 PO BID METFORMIN HCL 500 MG ORAL TABLET 965898 METFORMIN HCL Inactive REGLAN 10 MG ORAL TABLET 1 po TID PRN Nausea REGLAN 10 MG ORAL TABLET 927530 METOCLOPRAMIDE HCL Inactive MECLIZINE HCL 25 MG ORAL TABLET CHEWABLE 1 four times a day as needed for dizziness MECLIZINE HCL 25 MG ORAL TABLET CHEWABLE 642865 MECLIZINE HCL Inactive SOMA 350 MG ORAL TABLET 1 po q 6 hours prn spasm SOMA 350 MG ORAL TABLET 968927 CARISOPRODOL Inactive MELATONIN 5 MG ORAL TABLET Take one by mouth daily MELATONIN 5 MG ORAL TABLET 177971 MELATONIN Inactive MULTIVITAMINS TABS Take one by mouth daily MULTIVITAMINS TABS MULTIPLE VITAMIN Inactive LORTAB 5-500 MG ORAL TABLET 1/2 to 1 tablet by mouth every 4 hours as needed for pain LORTAB 5-500 MG ORAL TABLET 472919 HYDROCODONE-ACETAMINOPHEN Inactive XANAX 0.5 MG ORAL TABLET 1 tablet every 6 hrs prn XANAX 0.5 MG ORAL TABLET 630091 ALPRAZOLAM Inactive AUGMENTIN 875-125 MG ORAL TABLET 1 tab by mouth twice daily with food AUGMENTIN 875-125 MG ORAL TABLET 896663 AMOXICILLIN-POT CLAVULANATE Inactive ALPRAZOLAM 0.5 MG ORAL TABLET 1 tab every 6hrs as needed ALPRAZOLAM 0.5 MG ORAL TABLET 256824 ALPRAZOLAM Inactive SPIRONOLACTONE 25 MG ORAL TABLET 0.5 tablet by mouth daily 09/09 SPIRONOLACTONE 25 MG ORAL TABLET 164690 SPIRONOLACTONE Inactive ACCU-CHEK KEYONA PLUS w/Device KIT [...] times daily as needed ACCU-CHEK FASTCLIX LANCETS 71699241195 LANCETS Inactive TRAMADOL HCL 50 MG ORAL TABLET 1 tablets every 6 hours as needed for pain TRAMADOL HCL 50 MG ORAL TABLET 579219 TRAMADOL HCL Inactive VENLAFAXINE HCL 75 MG ORAL TABLET 1 po BID VENLAFAXINE HCL 75 MG ORAL TABLET 958565 VENLAFAXINE HCL Inactive HYDROCODONE-ACETAMINOPHEN 5-500 MG ORAL TABLET take one po Q 4-6 hours prn HYDROCODONE-ACETAMINOPHEN 5-500 MG ORAL TABLET 007581 HYDROCODONE-ACETAMINOPHEN Inactive LORTAB 5-500 MG ORAL TABLET 1/2 to 1 tablet by mouth every 4 hours as needed for pain LORTAB 5-500 MG ORAL TABLET 975279 HYDROCODONE-ACETAMINOPHEN Inactive LAMISIL 250 MG ORAL TABLET 1 po qd LAMISIL 250 MG ORAL TABLET 549362 TERBINAFINE HCL Inactive VENLAFAXINE HCL 37.5 MG ORAL TABLET 1 po BID VENLAFAXINE HCL 37.5 MG ORAL TABLET 499088 VENLAFAXINE HCL Inactive CIPRO 500 MG ORAL TABLET 1 tablet by mouth twice daily CIPRO 500 MG ORAL TABLET 237235 CIPROFLOXACIN HCL Inactive VENLAFAXINE HCL 75 MG ORAL TABLET 1 po BID VENLAFAXINE HCL 75 MG ORAL TABLET 721276 VENLAFAXINE HCL Inactive SIMVASTATIN 40 MG ORAL TABLET Take one by mouth daily SIMVASTATIN 40 MG ORAL TABLET 389282 SIMVASTATIN Inactive OMEPRAZOLE 20 MG ORAL TABLET DELAYED RELEASE 1 PO 30 MIN BEFORE 1ST MEAL 2010 OMEPRAZOLE 20 MG ORAL TABLET DELAYED RELEASE 693713 OMEPRAZOLE Inactive FENOFIBRATE 145 MG ORAL TABLET 1 po qd FENOFIBRATE 145 MG ORAL TABLET 390260 FENOFIBRATE Inactive BACTRIM DS 800-160 MG ORAL TABLET 1 bid x 14 day start 09-28-13 BACTRIM DS 800-160 MG ORAL TABLET 530733 SULFAMETHOXAZOLE- TRIMETHOPRIM Inactive B-12 100 MCG ORAL TABLET Take one by mouth daily B-12 100 MCG ORAL TABLET CYANOCOBALAMIN Inactive GABAPENTIN 100 MG ORAL CAPSULE 1 po bid GABAPENTIN 100 MG ORAL CAPSULE 672774 GABAPENTIN Inactive HYDROCODONE-ACETAMINOPHEN 5-325 MG ORAL TABLET 1 tab by mouth every 6 hours as needed for pain HYDROCODONE-ACETAMINOPHEN 5-325 MG ORAL TABLET 312449 HYDROCODONE-ACETAMINOPHEN Inactive CIPRO 500 MG ORAL TABLET 1 bid x 14 days start 09-28-13 CIPRO 500 MG ORAL TABLET 387106 CIPROFLOXACIN HCL Inactive ALIGN 4 MG ORAL [...] SODIUM 50 MG ORAL TABLET DELAYED RELEASE 315296 DICLOFENAC SODIUM Inactive PREDNISONE 20 MG ORAL TABLET 2 tablets once daily for 2 days, then 1 tablet once daily for 2 days PREDNISONE 20 MG ORAL TABLET 307891 PREDNISONE Inactive TRUEDRAW LANCING DEVICE Test twice a day dx 250.0 TRUEDRAW LANCING DEVICE LANCET DEVICES Inactive TRUERESULT BLOOD GLUCOSE w/Device KIT test blood sugar twice daily dx 250.00 TRUERESULT BLOOD GLUCOSE w/Device KIT BLOOD GLUCOSE MONITORING SUPPL Inactive FLONASE 50 MCG/ACT NASAL SUSPENSION 1 spray each nostril twice daily until bottle empty FLONASE 50 MCG/ACT NASAL SUSPENSION 9573904 FLUTICASONE PROPIONATE Inactive VENTOLIN HFA 108 (90 Base) MCG/ACT INHALATION AEROSOL SOLUTION 1-2 puffs every 4 hours if needed for cough/congestion VENTOLIN HFA 108 (90 Base) MCG/ACT INHALATION AEROSOL SOLUTION ALBUTEROL SULFATE Inactive REQUIP 2 MG ORAL TABLET Take one tablet at bedtime prn REQUIP 2 MG ORAL TABLET 308601 ROPINIROLE HCL Inactive SUPER B COMPLEX/VITAMIN C ORAL TABLET 1 qd SUPER B COMPLEX/VITAMIN C ORAL TABLET 15639554878 B COMPLEX-C Inactive TRUEDRAW LANCING DEVICE test blood sugar twice daily dx: 250.00 TRUEDRAW LANCING DEVICE LANCET DEVICES Inactive TRUETEST TEST IN VITRO STRIP test blood sugar twice daily. DX 250.0 TRUETEST TEST IN VITRO STRIP GLUCOSE BLOOD Inactive CYCLOBENZAPRINE HCL 10 MG ORAL TABLET 1 po TID PRN Muscle Spasm CYCLOBENZAPRINE HCL 10 MG ORAL TABLET 649999 CYCLOBENZAPRINE HCL Inactive DICLOFENAC SODIUM 50 MG ORAL TABLET DELAYED RELEASE 1 po BID PRN Pain DICLOFENAC SODIUM 50 MG ORAL TABLET DELAYED RELEASE 148793 DICLOFENAC SODIUM Inactive DICLOFENAC SODIUM 75 MG ORAL TABLET DELAYED RELEASE 1 po BID PRN Pain DICLOFENAC SODIUM 75 MG ORAL TABLET DELAYED RELEASE 231291 DICLOFENAC SODIUM Inactive TRIAMCINOLONE ACETONIDE 0.1 % EXTERNAL OINTMENT Apply to affected areas TID for up to 2 weeks TRIAMCINOLONE ACETONIDE 0.1 % EXTERNAL OINTMENT 0575187 TRIAMCINOLONE ACETONIDE Inactive PREDNISONE 20 MG ORAL TABLET 2 tabs daily for 3 days, 1 tab daily for 3 days, 1/2 tab daily for 2 days PREDNISONE 20 MG ORAL TABLET 734905 PREDNISONE Inactive PREDNISONE 20 MG ORAL TABLET 2 tabs daily for 3 days, 1 tab daily for 3 days, 1/2 tab daily for 2 days PREDNISONE 20 MG ORAL TABLET 647607 PREDNISONE Inactive BACTRIM DS 800-160 MG ORAL TABLET 1 po BID x 7 days BACTRIM DS 800-160 MG ORAL TABLET 059259 SULFAMETHOXAZOLE-TRIMETHOPRIM Inactive ZITHROMAX 250 MG ORAL TABLET 2 po today, then 1 po q days 2-5 ZITHROMAX 250 MG ORAL TABLET 018585 AZITHROMYCIN Inactive Advance Directives Directive Description Start Date DISCUSSED WITH PATIENT -- NO DECISION MADE Immunizations Vaccine Administration Date Value Standard Description Seasonal influenza vaccine, injectable, containing preservative, for > 3 years old (Afluria, FluLaval, Fluzone, Fluvirin, Fluarix, Agriflu(>=18 yo)) Fluzone (>3 yrs.) [[id number]] Influenza, seasonal, injectable influenza immunization (Flu Vax) has been administered 02/22/2012 influenza virus vaccine, unspecified formulation Seasonal influenza vaccine, injectable, containing preservative, for > 3 years old (Afluria, FluLaval, Fluzone, Fluvirin, Fluarix, Agriflu(>=18 yo)) Fluzone (>3 yrs.) [[id number]] Influenza, seasonal, injectable Vital Signs Date Name [...] ... - Chemistry sodium, serum 141 mmol/L 688-995 5329/01/16 carbon dioxide, venous blood 28.3 mmol/L 21.0-32.0 [...] 6.7 % 4.3-6.0 cholesterol, serum 106 mg/dL 826-318 0605/01/16 triglyceride, serum, fasting 173 mg/dL 30-200 HDL [...] A1c - Chemistry cholesterol, serum 135 mg/dL 801-594 5825/05/17 HDL cholesterol, serum 41 mg/dL > OR=46 triglyceride, serum, fasting 206 mg/dL <150 LDL cholesterol, serum 53 MG/DL (CALC) mg/dL <130 cholesterol/HDL ratio, serum 3.3 (calc) < OR=5.0 Lab Report: HGBA1C - Chemistry hemoglobin A1C, blood, as % of total hemoglobin 6.5 % 4.3-6.0 Encounters Code Encounter Date Provider Facility CPT-38428 Level 4 Est. Patient 13:42:02 PATTERN SETTER Tu Landeros MD [facility] CPT-83298 Level 3 Est. Patient 14:20:36 CDT Tu Landeros MD [facility] CPT-24510 Level 4 Est. Patient 14:28:34 CDT Tu Landeros MD [facility] CPT-39039 Level 3 Est. Patient 13:33:09 CDT Tu Landeros MD [facility] CPT-15670 Level 4 Est. Patient 14:29:21 CDT Tu Landeros MD [facility] CPT-25348 Level 4 Est. Patient 09:08:17 PATTERN SETTER Tu Landeros MD [facility] CPT-15037 Level 4 Est. Patient 14:40:19 CDT Tu Landeros MD [facility] CPT-86742 Level 4 Est. Patient 14:06:04 PATTERN SETTER Tu Landeros MD [facility] CPT-30347 Level 3 Est. Patient 14:05:18 PATTERN SETTER Tu Landeros MD [facility] CPT-67881 Level 3 Est. Patient 10:06:54 PATTERN SETTER Miranda Suresh APRN [facility] CPT-47187 Level 4 Est. Patient 13:50:18 PATTERN SETTER Tu Landeros MD [facility] CPT-83099 Level 3 Est. Patient 10:30:04 CDT Tu Landeros MD [facility] CPT-67319 Level 4 Est. Patient 11:03:38 CDT Tu Landeros MD [facility] CPT-50198 Level 3 Est. Patient 10:20:44 CDT Fab Morales DO [facility] CPT-93742 Level 4 Est. Patient 14:38:57 CDT Tu Landeros MD [facility] CPT-96573 Level 4 Est. Patient 14:27:39 PATTERN SETTER Tu Landeros MD [facility] CPT-64292 Level 4 Est. Patient 09:45:25 CDT Tu Landeros MD [facility] CPT-48933 Level 4 Est. Patient 09:05:20 PATTERN SETTER Tu Landeros MD [facility] CPT-07512 Level 4 Est. Patient 14:09:06 CDT Tu Landeros MD [facility] CPT-72690 Level 3 Est. Patient 13:36:54 CDT Tu Landeros MD [facility] CPT-68724 Level 3 Est. Patient 08:59:14 CDT Tu Landeros MD [facility] CPT-36506 Level 3 Est. Patient 13:48:35 CDT Fab Morales DO [facility] CPT-39546 Level 4 Est. Patient 10:05:48 CDT Tu Landeros MD [facility] CPT-70493 Level 3 Est. Patient 13:38:42 CDT Marek BANKS [facility] CPT-17939 Level 5 Est. Patient 08:08:39 CDT Jerrica FRANCIS [facility] CPT-97437 Level 4 Est. Patient 14:23:38 CDT Tu Landeros MD [facility] CPT-61939 Level 3 Est. Patient 11:44:04 CDT Tu Landeros MD [facility] CPT-88635 Level 3 Est. Patient 11:03:20 PATTERN SETTER Tu Landeros MD [facility] CPT-25901 Level 3 Est. Patient 11:03:14 PATTERN SETTER Tu Landeros MD [facility] CPT-19011 Level 3 Est. Patient 12:42:49 CDT Tu Landeros MD [facility] CPT-50205 Level 3 Est. Patient 11:52:06 CDT Tu Landeros MD [facility] CPT-73124 Level 3 Est. Patient 13:58:11 CDT Tu Landeros MD [facility] CPT-97638 Level 3 Est. Patient 17:50:07 CDT Fab Morales DO [facility] CPT-89764 Level 3 Est. Patient 12:06:29 CDT Elvira Cervantes MD, PhD [facility] CPT-13600 Level 3 Est. Patient 15:50:32 CDT Tu Landeros MD [facility] CPT-66165 Level 4 Est. Patient 16:08:29 CDT Tu Landeros MD [facility] CPT-91983 Level 3 Est. Patient 16:04:19 CDT Tu Landeros MD [facility] CPT-22747 Level 3 Est. Patient 11:22:30 PATTERN SETTER Tu Landeros MD [facility] CPT-51669 Level 4 Est. Patient 16:24:02 PATTERN SETTER Tu Landeros MD [facility] CPT-87041 Level 3 Est. Patient 17:21:23 PATTERN SETTER Tu Landeros MD [facility] Procedures Code Procedure Name Date Entry Date Standard Description CPT-17138 Shoulder, right, comp min 2V - XRAY USE ONLY 13:50:22 CDT CPT-G0009 Administration of Pneumococcal Vaccine 15:08:26 CDT CPT-54082 Prevnar 13 Intramuscular Suspension 15:08:26 CDT 10/08 CPT-G0439 [facility] Annual Wellness Exam 14:29:22 CDT CPT-04957 Venipuncture Draw Fee 13:15:35 CDT CPT-80858 Magnesium - LAB USE ONLY 11:14:20 PATTERN SETTER CPT-72947 Lipid - LAB USE ONLY 11:14:20 PATTERN SETTER CPT-79743 HGBA1C - LAB USE ONLY 11:14:20 PATTERN SETTER CPT-43793 CMP - LAB USE ONLY 11:14:19 PATTERN SETTER CPT-10080 CBC - LAB USE ONLY 11:14:19 PATTERN SETTER CPT-07780 Venipuncture Draw Fee 11:14:18 PATTERN SETTER CPT-14588 First Vx - Ix admin for Medicare patients 16:46:52 CDT CPT-73788 Fluzone Preservative Free Intramuscular Suspension 16:46 :51 CDT CPT-23425 CBC - LAB USE ONLY 17:14:46 CDT CPT-69161 HGBA1C - LAB USE ONLY 17:14:46 CDT CPT-02992 Venipuncture Draw Fee 17:14:46 CDT CPT-G0438 Initial Annual Wellness Exam 14:13:04 CDT CPT-00320 Breathing Tx 10:06:54 PATTERN SETTER CPT-56495 Postop F/U Visit 10:02:45 CDT CPT-LR Lesion Removal 09:02:56 CDT CPT-JTINJ Asp/Joint Injection 15:51:27 PATTERN SETTER CPT-OV Office Visit 15:52:02 PATTERN SETTER CPT-OV Office Visit 15:45:11 CDT CPT-000 Give Zostavax 14:09:06 CDT CPT-43025 Administration single or combination vaccine inc oral 15 :19:04 CDT CPT-54303 Zoster Vaccine (Zostavax) 15:19:04 CDT CPT-84019 Administration single or combination vaccine inc oral 20 :51:03 CDT CPT-46775 Influenza split virus > age 3 20:51:03 CDT CPT-41302 No Charge Offi Visit 14:52:03 CDT CPT-OV Office Visit 14:57:43 CDT CPT-OV Office Visit 15:22:32 CDT CPT-57753 Administration single or combination vaccine inc oral 11 :33:15 CDT CPT-80333 Influenza split virus > age 3 11:33:15 CDT
--- OUTSIDE RECORDS SUMMARY | 2018-04-25 16:52 | XMS REPORT | Clinical Summary ---
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 Moderate or severe vision impairment, both eyes, [...] hours if needed for cough/congestion ALBUTEROL SULFATE 84819012335 No Longer Active Ambika Aden APRN Active ZITHROMAX 250 MG TAB 2 po today, then 1 po q days 2-5 AZITHROMYCIN 14053677356 No Longer Active iMranda Suresh APRN Active METFORMIN HCL 1000 MG TABS 1 tablet by mouth twice daily METFORMIN HCL 28762522266 Active Tu Landeros MD Active FLONASE 50 MCG/ACT SUSP 1 spray each nostril twice daily until bottle empty FLUTICASONE PROPIONATE 71577705899 No Longer Active Tu Landeros MD Active COLACE 100 MG CAP 1 po BID PRN Constipation DOCUSATE SODIUM 68670462860 Active Tu Landeros MD Active SIMVASTATIN 40 MG TABS 0.5 tab daily at bedtime SIMVASTATIN 99254794334 Active Tu Landeros MD Active TRUERESULT BLOOD GLUCOSE W/DEVICE KIT test blood sugar twice daily dx 250.00 BLOOD GLUCOSE MONITORING SUPPL 21771026532 No Longer Active Tu Landeros MD Active TRUEDRAW LANCING DEVICE MISC Test twice a day dx 250.0 LANCET DEVICES 72560929008 No Longer Active Tu Landeros MD Active PREDNISONE 20 MG TAB 2 tablets once daily for 2 days, then 1 tablet once daily for 2 days PREDNISONE 61436210635 No Longer Active Tu Landeros MD Active DICLOFENAC SODIUM 50 MG TBEC 1 tablet by mouth three times a day as needed DICLOFENAC SODIUM 30487018272 No Longer Active Fab Morales DO Active TRUEDRAW LANCING DEVICE MISC test blood sugar twice daily dx: 250.00 LANCET DEVICES 12849691651 Active Tu Landeros MD Active TRUETEST TEST INVITR STRP test blood sugar twice daily. DX 250.0 GLUCOSE BLOOD 10145349784 Active Tu Landeros MD Active EMBRACE BLOOD GLUCOSE TEST STRP test blood sugar twice daily DX 250.0 2014 GLUCOSE BLOOD 56154058075 No Longer Active Tu Landeros MD Active TRUETEST TEST STRP test blood sugar three times daily dx: 250.00 GLUCOSE BLOOD 73115054339 No Longer Active Suze Corey RMA Active TRUERESULT BLOOD GLUCOSE W/DEVICE KIT use to test blood sugar tid dx: 250.00 BLOOD GLUCOSE MONITORING SUPPL 57955753348 No Longer Active Suze Corey RMA Active ALIGN 4 MG CAPS 1 tid PROBIOTIC PRODUCT 63053340349 No Longer Active Shaun Sy MD Active CIPRO 500 MG TABS 1 bid x 14 days start 09-28-13 CIPROFLOXACIN HCL 24701506750 No Longer Active Shaun Sy MD Active TRAMADOL HCL 50 MG TABS 1-2 tablets every 6 hours as needed for pain TRAMADOL HCL 96994950578 Active Tu Landeros MD Active HYDROCODONE-ACETAMINOPHEN 5-325 MG TABS 1 tab by mouth every 6 hours as needed for pain HYDROCODONE-ACETAMINOPHEN 74893361494 No Longer Active Tu Landeros MD Active OMEPRAZOLE 20 MG CPDR 1 po q a.m. OMEPRAZOLE 98497772248 Active Tu Landeros MD Active GABAPENTIN 100 MG CAPS 1 po bid GABAPENTIN 17112554977 No Longer Active Tu Landeros MD Active B-12 100 MCG TABS Take one by mouth daily CYANOCOBALAMIN 44294912312 No Longer Active Tu Landeros MD Active GABAPENTIN 100 MG CAPS by mouth twice a day GABAPENTIN 40349452953 Active Tiffanie Doyle Active BACTRIM DS 800-160 MG TABS 1 bid x 14 day start 5-8-14 2014/11/ 10 SULFAMETHOXAZOLE-TRIMETHOPRIM 92419035893 No Longer Active Tu Landeros MD Active CARVEDILOL 12.5 MG TABS 1 po BID CARVEDILOL 04998295704 Active Tu Landeros MD Active SUPER B COMPLEX/VITAMIN C TABS 1 qd B COMPLEX-C 94394938087 Active JASPREET Perez Active TRILIPIX 135 MG CPDR 1 q hs CHOLINE FENOFIBRATE 01466090549 Active Tu Landeros MD Active FENOFIBRATE 145 MG TABS 1 po qd FENOFIBRATE 44513276288 No Longer Active JASPREET Perez Active OMEPRAZOLE 20 MG TBEC 1 PO 30 MIN BEFORE 1ST MEAL OMEPRAZOLE 41768225473 No Longer Active JASPREET Perez Active SIMVASTATIN 40 MG TABS Take one by mouth daily SIMVASTATIN 97090037050 No Longer Active JASPREET Perez Active VENLAFAXINE HCL 37.5 MG TABS 1 bid VENLAFAXINE HCL 49348517891 Active Tu Landeros MD Active VENLAFAXINE HCL 75 MG TABS 1 po BID VENLAFAXINE HCL 89568661382 No Longer Active JASPREET Perez Active CIPRO 500 MG TAB 1 tablet by mouth twice daily CIPROFLOXACIN HCL 71760582730 No Longer Active Tu Landeros MD Active VENLAFAXINE HCL 37.5 MG TABS 1 po BID VENLAFAXINE HCL 22285953003 No Longer Active Suze Corey RMMahendra Active LAMISIL 250 MG TAB 1 po qd TERBINAFINE HCL 18025601554 No Longer Active Tu Landeros MD Active LORTAB 5 5-500 MG TABS 1/2 to 1 tablet by mouth every 4 hours as needed for pain HYDROCODONE-ACETAMINOPHEN 56520948982 No Longer Active Tu Landeros MD Active ENALAPRIL MALEATE 20 MG TABS 1.5 po qd ENALAPRIL MALEATE 56558522748 Active Tu Landeros MD Active HYDROCODONE-ACETAMINOPHEN 5-500 MG TABS take one po Q 4-6 hours prn HYDROCODONE-ACETAMINOPHEN 72424217619 No Longer Active Tu Landeros MD Active BACTRIM DS 800-160 MG TABS 1 po BID x 7 days SULFAMETHOXAZOLE-TRIMETHOPRIM 15807172980 No Longer Active Tu Landeros MD Active VENLAFAXINE HCL 75 MG TABS 1 po BID VENLAFAXINE HCL 65650003387 No Longer Active Elvira Cervantes MD PhD Active TRAMADOL HCL 50 MG TABS 1 tablets every 6 hours as needed for pain TRAMADOL HCL 55253500037 No Longer Active Tu Landeros MD Active ACCU-CHEK FASTCLIX LANCETS MISC Use to check bloodsugar three times daily as needed LANCETS 83378263993 No Longer Active Tu Landeros MD Active ACCU-CHEK KEYONA PLUS STRP Use for testing bloodsugars three times daily as needed GLUCOSE BLOOD 66689198066 No Longer Active Tu Landeros MD Active ACCU-CHEK KEYONA PLUS W/DEVICE KIT Use for testing bloodsugars three times daily as needed BLOOD GLUCOSE MONITORING SUPPL 04402606736 No Longer Active Tu Landeros MD Active SPIRONOLACTONE 25 MG TAB 0.5 tablet by mouth daily SPIRONOLACTONE 97837472125 No Longer Active Tu Landeros MD Active ALPRAZOLAM 0.5 MG TABS 1 tab every 6hrs as needed ALPRAZOLAM 56279116491 No Longer Active Tu Landeros MD Active AUGMENTIN 875-125 MG TAB 1 tab by mouth twice daily with food AMOXICILLIN-POT CLAVULANATE 78915665033 No Longer Active Tu Landeros MD Active PREDNISONE 20 MG TAB 2 tabs daily for 3 days, 1 tab daily for 3 days, 1/2 tab daily for 2 days PREDNISONE 43667676593 No Longer Active Tu Landeros MD Active XANAX 0.5 MG TABS 1 tablet every 6 hrs prn ALPRAZOLAM 72553940100 No Longer Active Tu Landeros MD Active PREDNISONE 20 MG TAB 2 tabs daily for 3 days, 1 tab daily for 3 days, 1/2 tab daily for 2 days PREDNISONE 39160325509 No Longer Active Tu Landeros MD Active TRIAMCINOLONE ACETONIDE 0.1 % OINT Apply to affected areas TID for up to 2 weeks TRIAMCINOLONE ACETONIDE 52662352946 No Longer Active Tu Landeros MD Active LORTAB 5 5-500 MG TABS 1/2 to 1 tablet by mouth every 4 hours as needed for pain HYDROCODONE-ACETAMINOPHEN 85616399108 No Longer Active Tu Landeros MD Active MULTIVITAMINS TABS Take one by mouth daily MULTIPLE VITAMIN 15741567264 No Longer Active Tu Landeros MD Active MELATONIN 5 MG TABS Take one by mouth daily MELATONIN 95600202161 No Longer Active Tu Landeros MD Active SOMA 350 MG TAB 1 po q 6 hours prn spasm CARISOPRODOL 31872050565 No Longer Active Tu Landeros MD Active MECLIZINE HCL 25 MG CHEW TAB 1 four times a day as needed for dizziness 08/05 MECLIZINE HCL 42167842769 No Longer Active Fab Morales DO Active ANGEL BREEZE 2 TEST DISK test tid prn GLUCOSE BLOOD 81655749756 No Longer Active Negra Scott RN Active REGLAN 10 MG TAB 1 po TID PRN Nausea METOCLOPRAMIDE HCL 99273334605 No Longer Active Tu Landeros MD Active METFORMIN HCL 500 MG TABS 1 PO BID METFORMIN HCL 26958688379 No Longer Active Tu Landeros MD Active AMBIEN 10 MG TAB 1 tab by mouth at bedtime as needed for sleep ZOLPIDEM TARTRATE 33299068031 No Longer Active Tu Landeros MD Active FLUOXETINE HCL 40 MG CAPS 1 po q day FLUOXETINE HCL 49901730275 No Longer Active Mayra Terry Active FISH OIL 1000 MG CAPS Take one by mouth daily OMEGA-3 FATTY ACIDS 82307998115 Active Tu Landeros MD Active GLUCOSAMINE 500 MG TABS Take 2 tab po qd GLUCOSAMINE 87395884964 Active Tu Landeros MD Active TRILIPIX 135 MG CPDR 1 po qd CHOLINE FENOFIBRATE 15564677893 No Longer Active Tu Landeros MD Active ASPIRIN 81 MG CHEW TAB 1 tablet by mouth daily ASPIRIN 78496327659 Active Tu Landeros MD Active FUROSEMIDE 40 MG TAB 1 tablet by mouth daily FUROSEMIDE 15882306708 Active Tu Landeros MD Active REQUIP 2 MG TABS Take one tablet at bedtime prn ROPINIROLE HCL 77962153659 Active Tu Landeros MD Active KLOR-CON 10 10 MEQ CR-TABS TAKE 2 TABS DAILY POTASSIUM CHLORIDE 56738721310 Active Tu Landeros MD Active AMBIEN 10 MG TAB 1 tab by mouth at bedtime as needed for sleep AMBIEN 10 MG TAB 919463 ZOLPIDEM TARTRATE Inactive METFORMIN HCL 500 MG TABS 1 PO BID METFORMIN HCL 500 MG TABS 388284 METFORMIN HCL Inactive REGLAN 10 MG TAB 1 po TID PRN Nausea REGLAN 10 MG TAB 596125 METOCLOPRAMIDE HCL Inactive MECLIZINE HCL 25 MG CHEW TAB 1 four times a day as needed for dizziness 08/05 MECLIZINE HCL 25 MG CHEW TAB 671451 MECLIZINE HCL Inactive SOMA 350 MG TAB 1 po q 6 hours prn spasm SOMA 350 MG TAB 126754 CARISOPRODOL Inactive MELATONIN 5 MG TABS Take one by mouth daily MELATONIN 5 MG TABS 044360 MELATONIN Inactive MULTIVITAMINS TABS Take one by mouth daily MULTIVITAMINS TABS MULTIPLE VITAMIN Inactive LORTAB 5 5-500 MG TABS 1/2 to 1 tablet by mouth every 4 hours as needed for pain LORTAB 5 5-500 MG TABS HYDROCODONE- ACETAMINOPHEN Inactive XANAX 0.5 MG TABS 1 tablet every 6 hrs prn XANAX 0.5 MG TABS 503283 ALPRAZOLAM Inactive AUGMENTIN 875-125 MG TAB 1 tab by mouth twice daily with food AUGMENTIN 875-125 MG TAB 970312 AMOXICILLIN-POT CLAVULANATE Inactive ALPRAZOLAM 0.5 MG TABS 1 tab every 6hrs as needed ALPRAZOLAM 0.5 MG TABS 294969 ALPRAZOLAM Inactive SPIRONOLACTONE 25 MG TAB 0.5 tablet by mouth daily SPIRONOLACTONE 25 MG TAB 974462 SPIRONOLACTONE Inactive ACCU-CHEK KEYONA PLUS W/DEVICE KIT Use for testing bloodsugars three times daily as needed ACCU-CHEK KEYONA PLUS W/DEVICE KIT BLOOD GLUCOSE MONITORING SUPPL Inactive ACCU-CHEK KEYONA PLUS STRP Use for testing bloodsugars three times daily as needed ACCU-CHEK KEYONA PLUS STRP GLUCOSE BLOOD Inactive ACCU-CHEK FASTCLIX LANCETS MISC Use to check bloodsugar three times daily as needed ACCU-CHEK FASTCLIX LANCETS MISC 64506608980 LANCETS Inactive TRAMADOL HCL 50 MG TABS 1 tablets every 6 hours as needed for pain TRAMADOL HCL 50 MG TABS 421563 TRAMADOL HCL Inactive VENLAFAXINE HCL 75 MG TABS 1 po BID VENLAFAXINE HCL 75 MG TABS 943572 VENLAFAXINE HCL Inactive HYDROCODONE-ACETAMINOPHEN 5-500 MG TABS take one po Q 4-6 hours prn HYDROCODONE-ACETAMINOPHEN 5-500 MG TABS HYDROCODONE- ACETAMINOPHEN Inactive LORTAB 5 5-500 MG TABS 1/2 to 1 tablet by mouth every 4 hours as needed for pain LORTAB 5 5-500 MG TABS HYDROCODONE- ACETAMINOPHEN Inactive LAMISIL 250 MG TAB 1 po qd LAMISIL 250 MG TAB 710470 TERBINAFINE HCL Inactive VENLAFAXINE HCL 37.5 MG TABS 1 po BID VENLAFAXINE HCL 37.5 MG TABS 767786 VENLAFAXINE HCL Inactive CIPRO 500 MG TAB 1 tablet by mouth twice daily CIPRO 500 MG TAB 572625 CIPROFLOXACIN HCL Inactive VENLAFAXINE HCL 75 MG TABS 1 po BID VENLAFAXINE HCL 75 MG TABS 862159 VENLAFAXINE HCL Inactive SIMVASTATIN 40 MG TABS Take one by mouth daily SIMVASTATIN 40 MG TABS 395845 SIMVASTATIN Inactive OMEPRAZOLE 20 MG TBEC 1 PO 30 MIN BEFORE 1ST MEAL OMEPRAZOLE 20 MG TBEC 064470 OMEPRAZOLE Inactive FENOFIBRATE 145 MG TABS 1 po qd FENOFIBRATE 145 MG TABS 725785 FENOFIBRATE Inactive BACTRIM DS 800-160 MG TABS 1 bid x 14 day start 09-28-13 BACTRIM DS 800-160 MG TABS 888268 SULFAMETHOXAZOLE-TRIMETHOPRIM Inactive B-12 100 MCG TABS Take one by mouth daily B-12 100 MCG TABS CYANOCOBALAMIN Inactive GABAPENTIN 100 MG CAPS 1 po bid GABAPENTIN 100 MG CAPS 892907 GABAPENTIN Inactive HYDROCODONE-ACETAMINOPHEN 5-325 MG TABS 1 tab by mouth every 6 hours as needed for pain HYDROCODONE-ACETAMINOPHEN 5-325 MG TABS 972740 HYDROCODONE-ACETAMINOPHEN Inactive CIPRO 500 MG TABS 1 bid x 14 days start 09-28-13 CIPRO 500 MG TABS 957889 CIPROFLOXACIN HCL Inactive ALIGN 4 MG CAPS [...] as needed DICLOFENAC SODIUM 50 MG TBEC 272124 DICLOFENAC SODIUM Inactive PREDNISONE 20 MG TAB 2 tablets once daily for 2 days, then 1 tablet once daily for 2 days PREDNISONE 20 MG TAB 177071 PREDNISONE Inactive TRUEDRAW LANCING DEVICE MISC Test [...] 2 weeks TRIAMCINOLONE ACETONIDE 0.1 % OINT 2971963 TRIAMCINOLONE ACETONIDE Inactive PREDNISONE 20 MG TAB 2 tabs daily for 3 days, 1 tab daily for 3 days, 1/2 tab daily for 2 days PREDNISONE 20 MG TAB 190047 PREDNISONE Inactive PREDNISONE 20 MG TAB 2 tabs daily for 3 days, 1 tab daily for 3 days, 1/2 tab daily for 2 days PREDNISONE 20 MG TAB 550171 PREDNISONE Inactive BACTRIM DS 800-160 MG TABS 1 po BID x 7 days BACTRIM DS 800-160 MG TABS 288975 SULFAMETHOXAZOLE-TRIMETHOPRIM Inactive ZITHROMAX 250 MG TAB 2 po today, then 1 po q days 2-5 ZITHROMAX 250 MG TAB 4107463 AZITHROMYCIN Inactive Advance Directives Directive Description Start Date DISCUSSED WITH PATIENT -- NO DECISION MADE Immunizations Vaccine Administration Date Value Standard Description Seasonal influenza vaccine, injectable, containing preservative, for > 3 years old (Afluria, FluLaval, Fluzone, Fluvirin, Fluarix, Agriflu(>=18 yo)) Fluzone (>3 yrs.) [FAQ815] Influenza, seasonal, injectable influenza immunization (Flu Vax) has been administered 02/22/2012 influenza virus vaccine, unspecified formulation Seasonal influenza vaccine, injectable, containing preservative, for > 3 years old (Afluria, FluLaval, Fluzone, Fluvirin, Fluarix, Agriflu(>=18 yo)) Fluzone (>3 yrs.) [[id number]] Influenza, seasonal, injectable Vital Signs Date Name [...] mg/g mg/g{creat} 0-29 sodium, serum 142 mmol/L 505-387 2304/10/08 potassium, serum 4.5 mmol/L 3.5-5.2 chloride, serum [...] 7.4 % 4.3-6.0 sodium, serum 140 mmol/L 923-172 9158/09/07 potassium, serum 4.3 mmol/L 3.5-5.2 chloride, serum 104 mmol/L 98-107 carbon dioxide, venous blood 27.7 mmol/L 21.0-32.0 blood glucose 156 mg/dL 65-110 calcium, serum 9.3 mg/dL 8.5-10.1 urea nitrogen, blood 23 mg/dL - creatinine, serum 1.21 mg/dL 0.55-1.30 hemoglobin A1C, blood, as % of total hemoglobin 7.7 % 4.3-6.0 Lab Report: Lipid Panel, Comp. Metabolic Panel - Chemistry cholesterol, serum 124 mg/dL 740-583 5986/01/12 triglyceride, serum, fasting 135 mg/dL 30-200 HDL cholesterol, serum 41 mg/dL 32-96 LDL cholesterol, serum 56 mg/dL 0-130 sodium, serum 140 mmol/L 742-309 4202/01/12 carbon dioxide, venous blood 27.7 mmol/L 21.0-32.0 potassium, serum 4.5 mmol/L 3.5-5.2 chloride, serum 104 mmol/L 98-107 blood glucose 139 mg/dL 65-110 urea nitrogen, blood 16 mg/dL 7-18 alanine aminotransferase (SGPT), serum 32 U/L 12-78 aspartate aminotransferase (SGOT), serum 25 U/L 15-37 calcium, serum 9.1 mg/dL 8.5-10.1 bilirubin, serum, total 0.50 mg/dL 0.00-1.00 Encounters Code Encounter Date Provider Facility CPT-94862 Level 4 Est. Patient 14:06:04 RN CASE MANAGER HOSPICE Tu Landeros MD [facility] CPT-66150 Level 3 Est. Patient 14:05:18 RN CASE MANAGER HOSPICE Tu Landeros MD [facility] CPT-18891 Level 3 Est. Patient 10:06:54 RN CASE MANAGER HOSPICE Miranda Suresh APRN [facility] CPT-23435 Level 4 Est. Patient 13:50:18 RN CASE MANAGER HOSPICE Tu Landeros MD [facility] CPT-13000 Level 3 Est. Patient 10:30:04 CDT Tu Landeros MD [facility] CPT-76025 Level 4 Est. Patient 11:03:38 CDT Tu Landeros MD [facility] CPT-50502 Level 3 Est. Patient 10:20:44 CDT Fab Morales DO [facility] CPT-61696 Level 4 Est. Patient 14:38:57 CDT Tu Landeros MD [facility] CPT-77771 Level 4 Est. Patient 14:27:39 RN CASE MANAGER HOSPICE Tu Landeros MD [facility] CPT-97276 Level 4 Est. Patient 09:45:25 CDT Tu Landeros MD [facility] CPT-55528 Level 4 Est. Patient 09:05:20 RN CASE MANAGER HOSPICE Tu Landeros MD [facility] CPT-02783 Level 4 Est. Patient 14:09:06 CDT Tu Landeros MD [facility] CPT-96054 Level 3 Est. Patient 13:36:54 CDT Tu Landeros MD [facility] CPT-76737 Level 3 Est. Patient 08:59:14 CDT Tu Landeros MD [facility] CPT-54404 Level 3 Est. Patient 13:48:35 CDT Fab Morales DO [facility] CPT-63657 Level 4 Est. Patient 10:05:48 CDT Tu Landeros MD [facility] CPT-44776 Level 3 Est. Patient 13:38:42 CDT Marek BANKS [facility] CPT-45855 Level 5 Est. Patient 08:08:39 CDT Jerrica Dawsontay FRANCIS [facility] CPT-30169 Level 4 Est. Patient 14:23:38 CDT Tu Landeros MD [facility] CPT-51419 Level 3 Est. Patient 11:44:04 CDT Tu Landeros MD [facility] CPT-77223 Level 3 Est. Patient 11:03:20 RN CASE MANAGER HOSPICE Tu Landeros MD [facility] CPT-80140 Level 3 Est. Patient 11:03:14 RN CASE MANAGER HOSPICE Tu Landeros MD [facility] CPT-05213 Level 3 Est. Patient 12:42:49 CDT Tu Landeros MD [facility] CPT-50042 Level 3 Est. Patient 11:52:06 CDT Tu Landeros MD [facility] CPT-97212 Level 3 Est. Patient 13:58:11 CDT Tu Landeros MD [facility] CPT-58292 Level 3 Est. Patient 17:50:07 CDT Fab Morales DO [facility] CPT-03703 Level 3 Est. Patient 12:06:29 CDT Elvira Cervantes MD PhD [facility] CPT-65930 Level 3 Est. Patient 15:50:32 CDT Tu Landeros MD [facility] CPT-01896 Level 4 Est. Patient 16:08:29 CDT Tu Landeros MD [facility] CPT-40394 Level 3 Est. Patient 16:04:19 CDT Tu Landeros MD [facility] CPT-37499 Level 3 Est. Patient 11:22:30 RN CASE MANAGER HOSPICE Tu Landeros MD [facility] CPT-88753 Level 4 Est. Patient 16:24:02 RN CASE MANAGER HOSPICE Tu Landeros MD [facility] CPT-35810 Level 3 Est. Patient 17:21:23 RN CASE MANAGER HOSPICE Tu Landeros MD [facility] Procedures Code Procedure Name Date Entry Date Standard Description CPT-34118 CBC - LAB USE ONLY 17:14:46 CDT CPT-02855 HGBA1C - LAB USE ONLY 17:14:46 CDT CPT-36448 Venipuncture Draw Fee 17:14:46 CDT CPT-G0438 Initial Annual Wellness Exam 14:13:04 CDT CPT-72381 Breathing Tx 10:06:54 RN [facility] MANA[facility]ICE CPT-77188 Postop F/U Visit 10:02:45 CDT CPT-LR Lesion Removal 09:02:56 CDT CPT-JTINJ Asp/Joint Injection 15:51:27 RN [facility] MANAGER [facility]PICE CPT-OV Office Visit 15:52:02 RN CASE MANAGER HOSPICE CPT-OV Office Visit 15:45:11 CDT CPT-000 Give Zostavax 14:09:06 CDT CPT-62749 Administration single or combination vaccine inc oral 15 :19:04 CDT CPT-91190 Zoster Vaccine (Zostavax) 15:19:04 CDT CPT-36104 Administration single or combination vaccine inc oral 20 :51:03 CDT CPT-71821 Influenza split virus > age 3 20:51:03 CDT CPT-48353 No Charge Offi Visit 14:52:03 CDT CPT-OV Office Visit 14:57:43 CDT CPT-OV Office Visit 15:22:32 CDT CPT-89144 Administration single or combination vaccine inc oral 11 :33:15 CDT CPT-57313 Influenza split virus > age 3 11:33:15 CDT
--- OUTSIDE RECORDS SUMMARY | 2018-04-25 16:55 | XMS REPORT | Clinical Summary ---
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 Moderate or severe vision impairment, both eyes, [...] hours if needed for cough/congestion ALBUTEROL SULFATE 19059578777 No Longer Active Ambika Aden APRN Active ZITHROMAX 250 MG TAB 2 po today, then 1 po q days 2-5 AZITHROMYCIN 16180943824 No Longer Active Miranda Suresh APRN Active METFORMIN HCL 1000 MG TABS 1 tablet by mouth twice daily METFORMIN HCL 10780381141 Active Tu Landeros MD Active FLONASE 50 MCG/ACT SUSP 1 spray each nostril twice daily until bottle empty FLUTICASONE PROPIONATE 25065824985 No Longer Active Tu Landeros MD Active COLACE 100 MG CAP 1 po BID PRN Constipation DOCUSATE SODIUM 63921283666 Active Tu Landeros MD Active SIMVASTATIN 40 MG TABS 0.5 tab daily at bedtime SIMVASTATIN 58045204438 Active Tu Landeros MD Active TRUERESULT BLOOD GLUCOSE W/DEVICE KIT test blood sugar twice daily dx 250.00 BLOOD GLUCOSE MONITORING SUPPL 07807467902 No Longer Active Tu Landeros MD Active TRUEDRAW LANCING DEVICE MISC Test twice a day dx 250.0 LANCET DEVICES 02529065593 No Longer Active Tu Landeros MD Active PREDNISONE 20 MG TAB 2 tablets once daily for 2 days, then 1 tablet once daily for 2 days PREDNISONE 17479210385 No Longer Active Tu Landeros MD Active DICLOFENAC SODIUM 50 MG TBEC 1 tablet by mouth three times a day as needed DICLOFENAC SODIUM 35011480918 No Longer Active Fab Morales DO Active TRUEDRAW LANCING DEVICE MISC test blood sugar twice daily dx: 250.00 LANCET DEVICES 66928979832 Active Tu Landeros MD Active TRUETEST TEST INVITR STRP test blood sugar twice daily. DX 250.0 GLUCOSE BLOOD 55271767189 Active Tu Landeros MD Active EMBRACE BLOOD GLUCOSE TEST STRP test blood sugar twice daily DX 250.0 2014 GLUCOSE BLOOD 86941092375 No Longer Active Tu Landeros MD Active TRUETEST TEST STRP test blood sugar three times daily dx: 250.00 GLUCOSE BLOOD 27467467127 No Longer Active Suzebianca VOGEL Active TRUERESULT BLOOD GLUCOSE W/DEVICE KIT use to test blood sugar tid dx: 250.00 BLOOD GLUCOSE MONITORING SUPPL 99863749044 No Longer Active Suze Corey RMA Active ALIGN 4 MG CAPS 1 tid PROBIOTIC PRODUCT 46095881361 No Longer Active Shaun Sy MD Active CIPRO 500 MG TABS 1 bid x 14 days start 09-28-13 CIPROFLOXACIN HCL 45281440362 No Longer Active Shaun Sy MD Active TRAMADOL HCL 50 MG TABS 1-2 tablets every 6 hours as needed for pain TRAMADOL HCL 54609068713 Active Tu Landeros MD Active HYDROCODONE-ACETAMINOPHEN 5-325 MG TABS 1 tab by mouth every 6 hours as needed for pain HYDROCODONE-ACETAMINOPHEN 25252171674 No Longer Active Tu Landeros MD Active OMEPRAZOLE 20 MG CPDR 1 po q a.m. OMEPRAZOLE 11058040040 Active Tu Landeros MD Active GABAPENTIN 100 MG CAPS 1 po bid GABAPENTIN 74907242827 No Longer Active Tu Landeros MD Active B-12 100 MCG TABS Take one by mouth daily CYANOCOBALAMIN 29844352401 No Longer Active Tu Landeros MD Active GABAPENTIN 100 MG CAPS by mouth twice a day GABAPENTIN 86958278932 Active Tu Landeros MD Active BACTRIM DS 800-160 MG TABS 1 bid x 14 day start 14 SULFAMETHOXAZOLE-TRIMETHOPRIM 65974686295 No Longer Active Tu Landeros MD Active CARVEDILOL 12.5 MG TABS 1 po BID CARVEDILOL 42163113713 Active Kofilaura Fatumashahid CLINICAL LABORATORY SCIENTIST Active SUPER B COMPLEX/VITAMIN C TABS 1 qd B COMPLEX-C 13054444716 Active JASPREET Perez Active TRILIPIX 135 MG CPDR 1 q hs CHOLINE FENOFIBRATE 34063841794 Active Tu Landeros MD Active FENOFIBRATE 145 MG TABS 1 po qd FENOFIBRATE 34825731877 No Longer Active JASPREET Perez Active OMEPRAZOLE 20 MG TBEC 1 PO 30 MIN BEFORE 1ST MEAL OMEPRAZOLE 43960486346 No Longer Active JASPREET Perez Active SIMVASTATIN 40 MG TABS Take one by mouth daily SIMVASTATIN 71664487222 No Longer Active JASPREET Perez Active VENLAFAXINE HCL 37.5 MG TABS 1 bid VENLAFAXINE HCL 86685154741 Active Tu Landeros MD Active VENLAFAXINE HCL 75 MG TABS 1 po BID VENLAFAXINE HCL 58001114078 No Longer Active JASPREET Perez Active CIPRO 500 MG TAB 1 tablet by mouth twice daily CIPROFLOXACIN HCL 84081566328 No Longer Active Tu Landeros MD Active VENLAFAXINE HCL 37.5 MG TABS 1 po BID VENLAFAXINE HCL 90392446776 No Longer Active Suzebianca NUNOA Active LAMISIL 250 MG TAB 1 po qd TERBINAFINE HCL 66129035290 No Longer Active Tu Landeros MD Active LORTAB 5 5-500 MG TABS 1/2 to 1 tablet by mouth every 4 hours as needed for pain HYDROCODONE-ACETAMINOPHEN 72104289410 No Longer Active Tu Landeros MD Active ENALAPRIL MALEATE 20 MG TABS 1.5 po qd ENALAPRIL MALEATE 34324370596 Active Tu Landeros MD Active HYDROCODONE-ACETAMINOPHEN 5-500 MG TABS take one po Q 4-6 hours prn HYDROCODONE-ACETAMINOPHEN 27699712438 No Longer Active Tu Landeros MD Active BACTRIM DS 800-160 MG TABS 1 po BID x 7 days SULFAMETHOXAZOLE-TRIMETHOPRIM 16723950727 No Longer Active Tu Landeros MD Active VENLAFAXINE HCL 75 MG TABS 1 po BID VENLAFAXINE HCL 15123914905 No Longer Active Elvira Cervantes MD PhD Active TRAMADOL HCL 50 MG TABS 1 tablets every 6 hours as needed for pain TRAMADOL HCL 75009854023 No Longer Active Tu Landeros MD Active ACCU-CHEK FASTCLIX LANCETS MISC Use to check bloodsugar three times daily as needed LANCETS 36484573264 No Longer Active Tu Landeros MD Active ACCU-CHEK KEYONA PLUS STRP Use for testing bloodsugars three times daily as needed GLUCOSE BLOOD 19036403680 No Longer Active Tu Landeros MD Active ACCU-CHEK KEYONA PLUS W/DEVICE KIT Use for testing bloodsugars three times daily as needed BLOOD GLUCOSE MONITORING SUPPL 19042097736 No Longer Active Tu Landeros MD Active SPIRONOLACTONE 25 MG TAB 0.5 tablet by mouth daily SPIRONOLACTONE 12035034337 No Longer Active Tu Landeros MD Active ALPRAZOLAM 0.5 MG TABS 1 tab every 6hrs as needed ALPRAZOLAM 02106127540 No Longer Active Tu Landeros MD Active AUGMENTIN 875-125 MG TAB 1 tab by mouth twice daily with food AMOXICILLIN-POT CLAVULANATE 49495383046 No Longer Active Tu Landeros MD Active PREDNISONE 20 MG TAB 2 tabs daily for 3 days, 1 tab daily for 3 days, 1/2 tab daily for 2 days PREDNISONE 71481519621 No Longer Active Tu Landeros MD Active XANAX 0.5 MG TABS 1 tablet every 6 hrs prn ALPRAZOLAM 79214026064 No Longer Active Tu Landeros MD Active PREDNISONE 20 MG TAB 2 tabs daily for 3 days, 1 tab daily for 3 days, 1/2 tab daily for 2 days PREDNISONE 26474231109 No Longer Active Tu Landeros MD Active TRIAMCINOLONE ACETONIDE 0.1 % OINT Apply to affected areas TID for up to 2 weeks TRIAMCINOLONE ACETONIDE 77341433278 No Longer Active Tu Landeros MD Active LORTAB 5 5-500 MG TABS 1/2 to 1 tablet by mouth every 4 hours as needed for pain HYDROCODONE-ACETAMINOPHEN 14170722537 No Longer Active Tu Landeros MD Active MULTIVITAMINS TABS Take one by mouth daily MULTIPLE VITAMIN 09583222437 No Longer Active Tu Landeros MD Active MELATONIN 5 MG TABS Take one by mouth daily MELATONIN 32267169993 No Longer Active Tu Landeros MD Active SOMA 350 MG TAB 1 po q 6 hours prn spasm CARISOPRODOL 55898546397 No Longer Active Tu Landeros MD Active MECLIZINE HCL 25 MG CHEW TAB 1 four times a day as needed for dizziness 08/05 MECLIZINE HCL 16083056201 No Longer Active Fab Morales DO Active ANGEL BREEZE 2 TEST DISK test tid prn GLUCOSE BLOOD 94608342665 No Longer Active Negra Scott RN Active REGLAN 10 MG TAB 1 po TID PRN [place] METOCLOPRAMIDE HCL 69601681253 No Longer Active Tu Landeros MD Active METFORMIN HCL 500 MG TABS 1 PO BID METFORMIN HCL 69847237270 No Longer Active Tu Landeros MD Active AMBIEN 10 MG TAB 1 tab by mouth at bedtime as needed for sleep ZOLPIDEM TARTRATE 26104815253 No Longer Active Tu Landeros MD Active FLUOXETINE HCL 40 MG CAPS 1 po q day FLUOXETINE HCL 75626660506 No Longer Active Mayra Terry Active FISH OIL 1000 MG CAPS Take one by mouth daily OMEGA-3 FATTY ACIDS 88557200025 Active Tu Landeros MD Active GLUCOSAMINE 500 MG TABS Take 2 tab po qd GLUCOSAMINE 28638064589 Active Tu Landeros MD Active TRILIPIX 135 MG CPDR 1 po qd CHOLINE FENOFIBRATE 49268789444 No Longer Active Tu Landeros MD Active ASPIRIN 81 MG CHEW TAB 1 tablet by mouth daily ASPIRIN 11080187697 Active Tu Landeros MD Active FUROSEMIDE 40 MG TAB 1 tablet by mouth daily FUROSEMIDE 03819325219 Active Tu Landeros MD Active REQUIP 2 MG TABS Take one tablet at bedtime prn ROPINIROLE HCL 41677693418 Active Tu Landeros MD Active KLOR-CON 10 10 MEQ CR-TABS TAKE 2 TABS DAILY POTASSIUM CHLORIDE 14575609381 Active Tu Landeros MD Active AMBIEN 10 MG TAB 1 tab by mouth at bedtime as needed for sleep AMBIEN 10 MG TAB 672861 ZOLPIDEM TARTRATE Inactive METFORMIN HCL 500 MG TABS 1 PO BID METFORMIN HCL 500 MG TABS 623360 METFORMIN HCL Inactive REGLAN 10 MG TAB 1 po TID PRN Nausea REGLAN 10 MG TAB 569947 METOCLOPRAMIDE HCL Inactive MECLIZINE HCL 25 MG CHEW TAB 1 four times a day as needed for dizziness 08/05 MECLIZINE HCL 25 MG CHEW TAB 356758 MECLIZINE HCL Inactive SOMA 350 MG TAB 1 po q 6 hours prn spasm SOMA 350 MG TAB 875595 CARISOPRODOL Inactive MELATONIN 5 MG TABS Take one by mouth daily MELATONIN 5 MG TABS 929647 MELATONIN Inactive MULTIVITAMINS TABS Take one by mouth daily MULTIVITAMINS TABS MULTIPLE VITAMIN Inactive LORTAB 5 5-500 MG TABS 1/2 to 1 tablet by mouth every 4 hours as needed for pain LORTAB 5 5-500 MG TABS HYDROCODONE- ACETAMINOPHEN Inactive XANAX 0.5 MG TABS 1 tablet every 6 hrs prn XANAX 0.5 MG TABS 580753 ALPRAZOLAM Inactive AUGMENTIN 875-125 MG TAB 1 tab by mouth twice daily with food AUGMENTIN 875-125 MG TAB 369184 AMOXICILLIN-POT CLAVULANATE Inactive ALPRAZOLAM 0.5 MG TABS 1 tab every 6hrs as needed ALPRAZOLAM 0.5 MG TABS 035184 ALPRAZOLAM Inactive SPIRONOLACTONE 25 MG TAB 0.5 tablet by mouth daily SPIRONOLACTONE 25 MG TAB 541543 SPIRONOLACTONE Inactive ACCU-CHEK KEYONA PLUS W/DEVICE KIT Use for testing bloodsugars three times daily as needed ACCU-CHEK KEYONA PLUS W/DEVICE KIT BLOOD GLUCOSE MONITORING SUPPL Inactive ACCU-CHEK KEYONA PLUS STRP Use for testing bloodsugars three times daily as needed ACCU-CHEK KEYONA PLUS STRP GLUCOSE BLOOD Inactive ACCU-CHEK FASTCLIX LANCETS MISC Use to check bloodsugar three times daily as needed ACCU-CHEK FASTCLIX LANCETS MISC 84491719871 LANCETS Inactive TRAMADOL HCL 50 MG TABS 1 tablets every 6 hours as needed for pain TRAMADOL HCL 50 MG TABS 751631 TRAMADOL HCL Inactive VENLAFAXINE HCL 75 MG TABS 1 po BID VENLAFAXINE HCL 75 MG TABS 628561 VENLAFAXINE HCL Inactive HYDROCODONE-ACETAMINOPHEN 5-500 MG TABS take one po Q 4-6 hours prn HYDROCODONE-ACETAMINOPHEN 5-500 MG TABS HYDROCODONE- ACETAMINOPHEN Inactive LORTAB 5 5-500 MG TABS 1/2 to 1 tablet by mouth every 4 hours as needed for pain LORTAB 5 5-500 MG TABS HYDROCODONE- ACETAMINOPHEN Inactive LAMISIL 250 MG TAB 1 po qd LAMISIL 250 MG TAB 708812 TERBINAFINE HCL Inactive VENLAFAXINE HCL 37.5 MG TABS 1 po BID VENLAFAXINE HCL 37.5 MG TABS 071044 VENLAFAXINE HCL Inactive CIPRO 500 MG TAB 1 tablet by mouth twice daily CIPRO 500 MG TAB 844817 CIPROFLOXACIN HCL Inactive VENLAFAXINE HCL 75 MG TABS 1 po BID VENLAFAXINE HCL 75 MG TABS 346487 VENLAFAXINE HCL Inactive SIMVASTATIN 40 MG TABS Take one by mouth daily SIMVASTATIN 40 MG TABS 086330 SIMVASTATIN Inactive OMEPRAZOLE 20 MG TBEC 1 PO 30 MIN BEFORE 1ST MEAL OMEPRAZOLE 20 MG TBEC 050235 OMEPRAZOLE Inactive FENOFIBRATE 145 MG TABS 1 po qd FENOFIBRATE 145 MG TABS 490246 FENOFIBRATE Inactive BACTRIM DS 800-160 MG TABS 1 bid x 14 day start 09-28-13 BACTRIM DS 800-160 MG TABS 498641 SULFAMETHOXAZOLE-TRIMETHOPRIM Inactive B-12 100 MCG TABS Take one by mouth daily B-12 100 MCG TABS CYANOCOBALAMIN Inactive GABAPENTIN 100 MG CAPS 1 po bid GABAPENTIN 100 MG CAPS 773527 GABAPENTIN Inactive HYDROCODONE-ACETAMINOPHEN 5-325 MG TABS 1 tab by mouth every 6 hours as needed for pain HYDROCODONE-ACETAMINOPHEN 5-325 MG TABS 492050 HYDROCODONE-ACETAMINOPHEN Inactive CIPRO 500 MG TABS 1 bid x 14 days start 09-28-13 CIPRO 500 MG TABS 458610 CIPROFLOXACIN HCL Inactive ALIGN 4 MG CAPS [...] as needed DICLOFENAC SODIUM 50 MG TBEC 744736 DICLOFENAC SODIUM Inactive PREDNISONE 20 MG TAB 2 tablets once daily for 2 days, then 1 tablet once daily for 2 days PREDNISONE 20 MG TAB 549491 PREDNISONE Inactive TRUEDRAW LANCING DEVICE MISC Test [...] 2 weeks TRIAMCINOLONE ACETONIDE 0.1 % OINT 5927517 TRIAMCINOLONE ACETONIDE Inactive PREDNISONE 20 MG TAB 2 tabs daily for 3 days, 1 tab daily for 3 days, 1/2 tab daily for 2 days PREDNISONE 20 MG TAB 355743 PREDNISONE Inactive PREDNISONE 20 MG TAB 2 tabs daily for 3 days, 1 tab daily for 3 days, 1/2 tab daily for 2 days PREDNISONE 20 MG TAB 105557 PREDNISONE Inactive BACTRIM DS 800-160 MG TABS 1 po BID x 7 days BACTRIM DS 800-160 MG TABS 906646 SULFAMETHOXAZOLE-TRIMETHOPRIM Inactive ZITHROMAX 250 MG TAB 2 po today, then 1 po q days 2-5 ZITHROMAX 250 MG TAB 7295415 AZITHROMYCIN Inactive Advance Directives Directive Description Start Date DISCUSSED WITH PATIENT -- NO DECISION MADE Immunizations Vaccine Administration Date Value Standard Description Seasonal influenza vaccine, injectable, containing preservative, for > 3 years old (Afluria, FluLaval, Fluzone, Fluvirin, Fluarix, Agriflu(>=18 yo)) Fluzone (>3 yrs.) [[id number]] Influenza, seasonal, injectable influenza immunization (Flu Vax) has been administered 02/22/2012 influenza virus vaccine, unspecified formulation Seasonal influenza vaccine, injectable, containing preservative, for > 3 years old (Afluria, FluLaval, Fluzone, Fluvirin, Fluarix, Agriflu(>=18 yo)) Fluzone (>3 yrs.) [[id number]] Influenza, seasonal, injectable Vital Signs Date Name [...] pressure, diastolic - 8462-4 75 mm[Hg] BP ca blood pressure, systolic - 8480-6 131 mm[Hg] [...] MICROALBUMIN - Chemistry sodium, serum 142 mmol/L 409-154 9182/10/08 potassium, serum 4.5 mmol/L 3.5-5.2 chloride, serum [...] 0.30 mg/dL 0.00-1.00 cholesterol, serum 111 mg/dL 637-858 9391/07/28 triglyceride, serum, fasting 177 mg/dL 30-200 HDL [...] Panel - Chemistry cholesterol, serum 124 mg/dL 146-436 7421/01/12 triglyceride, serum, fasting 135 mg/dL 30-200 HDL cholesterol, serum 41 mg/dL 32-96 LDL cholesterol, serum 56 mg/dL 0-130 sodium, serum 140 mmol/L 977-232 4709/01/12 carbon dioxide, venous blood 27.7 mmol/L 21.0-32.0 potassium, serum 4.5 mmol/L 3.5-5.2 chloride, serum 104 mmol/L 98-107 blood glucose 139 mg/dL 65-110 urea nitrogen, blood 16 mg/dL 7-18 alanine aminotransferase (SGPT), serum 32 U/L 12-78 aspartate aminotransferase (SGOT), serum 25 U/L 15-37 calcium, serum 9.1 mg/dL 8.5-10.1 bilirubin, serum, total 0.50 mg/dL 0.00-1.00 Encounters Code Encounter Date Provider Facility CPT-87825 Level 4 Est. Patient 14:06:04 BROKE BEATER MACHINE OPERATOR Tu Landeros MD [facility] CPT-84097 Level 3 Est. Patient 14:05:18 BROKE BEATER MACHINE OPERATOR Tu Landeros MD [facility] CPT-86883 Level 3 Est. Patient 10:06:54 BROKE BEATER MACHINE OPERATOR Miranda Suresh APRN [facility] CPT-11504 Level 4 Est. Patient 13:50:18 BROKE BEATER MACHINE OPERATOR Tu Landeros MD [facility] CPT-29230 Level 3 Est. Patient 10:30:04 CDT Tu Landeros MD [facility] CPT-78795 Level 4 Est. Patient 11:03:38 CDT Tu Landeros MD [facility] CPT-58773 Level 3 Est. Patient 10:20:44 CDT Fab Morales DO [facility] CPT-08734 Level 4 Est. Patient 14:38:57 CDT Tu Landeros MD [facility] CPT-14374 Level 4 Est. Patient 14:27:39 BROKE BEATER MACHINE OPERATOR Tu Landeros MD [facility] CPT-45623 Level 4 Est. Patient 09:45:25 CDT Tu Landeros MD [facility] CPT-91833 Level 4 Est. Patient 09:05:20 BROKE BEATER MACHINE OPERATOR Tu Landeros MD [facility] CPT-46660 Level 4 Est. Patient 14:09:06 CDT Tu Landeros MD [facility] CPT-53481 Level 3 Est. Patient 13:36:54 CDT Tu Landeros MD [facility] CPT-79284 Level 3 Est. Patient 08:59:14 CDT Tu Landeros MD [facility] CPT-02656 Level 3 Est. Patient 13:48:35 CDT Fab Morales DO [facility] CPT-82560 Level 4 Est. Patient 10:05:48 CDT Tu Landeros MD [facility] CPT-79915 Level 3 Est. Patient 13:38:42 CDT Marek BANKS [facility] CPT-15756 Level 5 Est. Patient 08:08:39 CDT Jerrica FRANCIS [facility] CPT-58566 Level 4 Est. Patient 14:23:38 CDT Tu Landeros MD [facility] CPT-45353 Level 3 Est. Patient 11:44:04 CDT Tu Lanedros MD [facility] CPT-30958 Level 3 Est. Patient 11:03:20 BROKE BEATER MACHINE OPERATOR Tu Landeros MD [facility] CPT-65697 Level 3 Est. Patient 11:03:14 BROKE BEATER MACHINE OPERATOR Tu Landeros MD [facility] CPT-02366 Level 3 Est. Patient 12:42:49 CDT Tu Landeros MD [facility] CPT-92465 Level 3 Est. Patient 11:52:06 CDT Tu Landeros MD [facility] CPT-09787 Level 3 Est. Patient 13:58:11 CDT Tu Landeros MD [facility] CPT-09768 Level 3 Est. Patient 17:50:07 CDT Fab Morales DO [facility] CPT-02933 Level 3 Est. Patient 12:06:29 CDT Elvira Cervantes MD, PhD [facility] CPT-49534 Level 3 Est. Patient 15:50:32 CDT Tu Landeros MD [facility] CPT-92435 Level 4 Est. Patient 16:08:29 CDT Tu Landeros MD [facility] CPT-70688 Level 3 Est. Patient 16:04:19 CDT Tu Landeros MD [facility] CPT-52465 Level 3 Est. Patient 11:22:30 BROKE BEATER MACHINE OPERATOR Tu Landeros MD [facility] CPT-83948 Level 4 Est. Patient 16:24:02 BROKE BEATER MACHINE OPERATOR Tu Landeros MD [facility] CPT-52791 Level 3 Est. Patient 17:21:23 BROKE BEATER MACHINE OPERATOR Tu Landeros MD [facility] Procedures Code Procedure Name Date Entry Date Standard Description CPT-G0438 Initial Annual Wellness Exam 14:13:04 CDT CPT-16867 Breathing Tx 10:06:54 BROKE BEATER MACHINE OPERATOR CPT-28197 Postop F/U Visit 10:02:45 CDT CPT-LR Lesion Removal 09:02:56 CDT CPT-JTINJ Asp/Joint Injection 15:51:27 BROKE BEATER MACHINE OPERATOR CPT-OV Office Visit 15:52:02 BROKE BEATER MACHINE OPERATOR CPT-OV Office Visit 15:45:11 CDT CPT-000 Give Zostavax 14:09:06 CDT CPT-04565 Administration single or combination vaccine inc oral 15 :19:04 CDT CPT-62436 Zoster Vaccine (Zostavax) 15:19:04 CDT CPT-58934 Administration single or combination vaccine inc oral 20 :51:03 CDT CPT-97251 Influenza split virus > age 3 20:51:03 CDT CPT-19042 No Charge Offi Visit 14:52:03 CDT CPT-OV Office Visit 14:57:43 CDT CPT-OV Office Visit 15:22:32 CDT CPT-85954 Administration single or combination vaccine inc oral 11 :33:15 CDT CPT-90730 Influenza split virus > age 3 11:33:15 CDT
--- OUTSIDE RECORDS SUMMARY | 2018-04-25 16:57 | XMS REPORT | Clinical Summary ---
Author Author Admin, SACHI Organization #[employer] Address Unknown Phone Unavailable Allergies, Adverse Reactions, [...] 40 MG TABS 0.5 po qHS SIMVASTATIN 43879341084 Active Tu Landeros MD Active FISH OIL 1000 MG CAPS 1 po qd OMEGA-3 FATTY ACIDS 95667284545 Active Tu Landeros MD Active METFORMIN HCL 1000 MG TABS 1 po BID METFORMIN HCL 52408826237 Active Tu Landeros MD Active KLOR-CON 10 10 MEQ CR-TABS 2 po qd POTASSIUM CHLORIDE 41776385201 Active Tu Landeros MD Active FUROSEMIDE 40 MG TAB 1 po qd FUROSEMIDE 64490522577 Active Tu Landeros MD Active REQUIP 2 MG ORAL TABS 1 po qHS PRN Restless legs ROPINIROLE HCL 94112446464 Active Tu Landeros MD Active VENLAFAXINE HCL 37.5 MG TABS 1 po BID VENLAFAXINE HCL 95459575097 Active Tu Landeros MD Active GABAPENTIN 100 MG CAPS 1 po BID GABAPENTIN 52965182383 Active José Luis Becerra MD Active REQUIP 2 MG TABS Take one tablet at bedtime prn ROPINIROLE HCL 02000811281 No Longer Active Tu Landeros MD Active VENTOLIN HFA 108 (90 BASE) MCG/ACT AERS 1-2 puffs every 4 hours if needed for cough/congestion ALBUTEROL SULFATE 01241910931 No Longer Active Ambika Aden APRN Active ZITHROMAX 250 MG TAB 2 po today, then 1 po q days 2-5 AZITHROMYCIN 18586368708 No Longer Active Miranda Suresh APRN Active FLONASE 50 MCG/ACT SUSP 1 spray each nostril twice daily until bottle empty FLUTICASONE PROPIONATE 12513811875 No Longer Active Tu Landeros MD Active COLACE 100 MG CAP 1 po BID PRN Constipation DOCUSATE SODIUM 46029274029 Active Tu Landeros MD Active TRUERESULT BLOOD GLUCOSE W/DEVICE KIT test blood sugar twice daily dx 250.00 BLOOD GLUCOSE MONITORING SUPPL 95745792141 No Longer Active Tu Landeros MD Active TRUEDRAW LANCING DEVICE MISC Test twice a day dx 250.0 LANCET DEVICES 79991042663 No Longer Active Tu Landeros MD Active PREDNISONE 20 MG TAB 2 tablets once daily for 2 days, then 1 tablet once daily for 2 days PREDNISONE 57161180759 No Longer Active Tu Landeros MD Active DICLOFENAC SODIUM 50 MG TBEC 1 tablet by mouth three times a day as needed DICLOFENAC SODIUM 82783679051 No Longer Active Fab Morales DO Active TRUEDRAW LANCING DEVICE MISC test blood sugar twice daily dx: 250.00 LANCET DEVICES 83243557987 Active Tu Landeros MD Active TRUETEST TEST INVITR STRP test blood sugar twice daily. DX 250.0 GLUCOSE BLOOD 94432876043 Active Tu Landeros MD Active EMBRACE BLOOD GLUCOSE TEST STRP test blood sugar twice daily DX 250.0 2014 GLUCOSE BLOOD 27442803579 No Longer Active Tu Landeros MD Active TRUETEST TEST STRP test blood sugar three times daily dx: 250.00 GLUCOSE BLOOD 05922007532 No Longer Active Suze VOGEL Active TRUERESULT BLOOD GLUCOSE W/DEVICE KIT use to test blood sugar tid dx: 250.00 BLOOD GLUCOSE MONITORING SUPPL 77502033781 No Longer Active Suze Nicole JASPREET Active ALIGN 4 MG CAPS 1 tid PROBIOTIC PRODUCT 41520882706 No Longer Active Shaun Sy MD Active CIPRO 500 MG TABS 1 bid x 14 days start 09-28-13 CIPROFLOXACIN HCL 51215148443 No Longer Active Shaun Sy MD Active TRAMADOL HCL 50 MG TABS 1-2 tablets every 6 hours as needed for pain TRAMADOL HCL 11416456668 Active Tu Landeros MD Active HYDROCODONE-ACETAMINOPHEN 5-325 MG TABS 1 tab by mouth every 6 hours as needed for pain HYDROCODONE-ACETAMINOPHEN 52979414453 No Longer Active Tu Landeros MD Active OMEPRAZOLE 20 MG CPDR 1 po q a.m. OMEPRAZOLE 47680129520 Active Tu Landeros MD Active GABAPENTIN 100 MG CAPS 1 po bid GABAPENTIN 72606954111 No Longer Active Tu Landeros MD Active B-12 100 MCG TABS Take one by mouth daily CYANOCOBALAMIN 18355015858 No Longer Active Tu Landeros MD Active BACTRIM DS 800-160 MG TABS 1 bid x 14 day start 09-28-13 SULFAMETHOXAZOLE-TRIMETHOPRIM 93870879654 No Longer Active Tu Landeros MD Active CARVEDILOL 12.5 MG TABS 1 po BID CARVEDILOL 16997403016 Active Tu Landeros MD Active SUPER B COMPLEX/VITAMIN C TABS 1 qd B COMPLEX-C 86299701088 Active JASPREET Perez Active TRILIPIX 135 MG CPDR 1 q hs CHOLINE FENOFIBRATE 35193058937 Active Tu Landeros MD Active FENOFIBRATE 145 MG TABS 1 po qd FENOFIBRATE 75251125478 No Longer Active JASPREET Perez Active OMEPRAZOLE 20 MG TBEC 1 PO 30 MIN BEFORE 1ST MEAL OMEPRAZOLE 62861168188 No Longer Active JASPREET Perez Active SIMVASTATIN 40 MG TABS Take one by mouth daily SIMVASTATIN 64065960934 No Longer Active JASPREET Perez Active VENLAFAXINE HCL 75 MG TABS 1 po BID VENLAFAXINE HCL 35385791500 No Longer Active JASPREET Perez Active CIPRO 500 MG TAB 1 tablet by mouth twice daily CIPROFLOXACIN HCL 37332728088 No Longer Active Tu Landeros MD Active VENLAFAXINE HCL 37.5 MG TABS 1 po BID VENLAFAXINE HCL 73011157335 No Longer Active Suzebianca Seguraart RMA Active LAMISIL 250 MG TAB 1 po qd TERBINAFINE HCL 16216471064 No Longer Active Tu Landeros MD Active LORTAB 5 5-500 MG TABS 1/2 to 1 tablet by mouth every 4 hours as needed for pain HYDROCODONE-ACETAMINOPHEN 51248648618 No Longer Active Tu Landeros MD Active ENALAPRIL MALEATE 20 MG TABS 1.5 po qd ENALAPRIL MALEATE 53517869066 Active uT Landeros MD Active HYDROCODONE-ACETAMINOPHEN 5-500 MG TABS take one po Q 4-6 hours prn HYDROCODONE-ACETAMINOPHEN 18691269134 No Longer Active Tu Landeros MD Active BACTRIM DS 800-160 MG TABS 1 po BID x 7 days SULFAMETHOXAZOLE-TRIMETHOPRIM 74860617203 No Longer Active Tu Landeros MD Active VENLAFAXINE HCL 75 MG TABS 1 po BID VENLAFAXINE HCL 22874766037 No Longer Active Elvira Cervantes MD PhD Active TRAMADOL HCL 50 MG TABS 1 tablets every 6 hours as needed for pain TRAMADOL HCL 66140868758 No Longer Active Tu Landeros MD Active ACCU-CHEK FASTCLIX LANCETS MISC Use to check bloodsugar three times daily as needed LANCETS 67735171454 No Longer Active Tu Landeros MD Active ACCU-CHEK KEYONA PLUS STRP Use for testing bloodsugars three times daily as needed GLUCOSE BLOOD 40008877545 No Longer Active Tu Landeros MD Active ACCU-CHEK KEYONA PLUS W/DEVICE KIT Use for testing bloodsugars three times daily as needed BLOOD GLUCOSE MONITORING SUPPL 80068693490 No Longer Active Tu Landeros MD Active SPIRONOLACTONE 25 MG TAB 0.5 tablet by mouth daily SPIRONOLACTONE 70910432088 No Longer Active Tu Landeros MD Active ALPRAZOLAM 0.5 MG TABS 1 tab every 6hrs as needed ALPRAZOLAM 22541516589 No Longer Active Tu Landeros MD Active AUGMENTIN 875-125 MG TAB 1 tab by mouth twice daily with food AMOXICILLIN-POT CLAVULANATE 04615807659 No Longer Active Tu Landeros MD Active PREDNISONE 20 MG TAB 2 tabs daily for 3 days, 1 tab daily for 3 days, 1/2 tab daily for 2 days PREDNISONE 51719341047 No Longer Active Tu Landeros MD Active XANAX 0.5 MG TABS 1 tablet every 6 hrs prn ALPRAZOLAM 13008003203 No Longer Active Tu Landeros MD Active PREDNISONE 20 MG TAB 2 tabs daily for 3 days, 1 tab daily for 3 days, 1/2 tab daily for 2 days PREDNISONE 62406043610 No Longer Active Tu Landeros MD Active TRIAMCINOLONE ACETONIDE 0.1 % OINT Apply to affected areas TID for up to 2 weeks TRIAMCINOLONE ACETONIDE 35420412599 No Longer Active Tu Landeros MD Active LORTAB 5 5-500 MG TABS 1/2 to 1 tablet by mouth every 4 hours as needed for pain HYDROCODONE-ACETAMINOPHEN 84837188943 No Longer Active Tu Landeros MD Active MULTIVITAMINS TABS Take one by mouth daily MULTIPLE VITAMIN 37096059938 No Longer Active Tu Landeros MD Active MELATONIN 5 MG TABS Take one by mouth daily MELATONIN 11103582975 No Longer Active Tu Landeros MD Active SOMA 350 MG TAB 1 po q 6 hours prn spasm CARISOPRODOL 06211614071 No Longer Active Tu Landeros MD Active MECLIZINE HCL 25 MG CHEW TAB 1 four times a day as needed for dizziness 08/05 MECLIZINE HCL 20003576005 No Longer Active Fab Morales DO Active ANGEL BREEZE 2 TEST DISK test tid prn GLUCOSE BLOOD 71596628244 No Longer Active Negra Scott RN Active REGLAN 10 MG TAB 1 po TID PRN [place] METOCLOPRAMIDE HCL 59430827521 No Longer Active Tu Landeros MD Active METFORMIN HCL 500 MG TABS 1 PO BID METFORMIN HCL 82013087537 No Longer Active Tu Landeros MD Active AMBIEN 10 MG TAB 1 tab by mouth at bedtime as needed for sleep ZOLPIDEM TARTRATE 59336502979 No Longer Active Tu Landeros MD Active FLUOXETINE HCL 40 MG CAPS 1 po q day FLUOXETINE HCL 76058638443 No Longer Active Mayra Ocoee Active GLUCOSAMINE 500 MG TABS Take 2 tab po qd GLUCOSAMINE 60784834458 Active Tu Landeros MD Active TRILIPIX 135 MG CPDR 1 po qd CHOLINE FENOFIBRATE 81052765251 No Longer Active Tu Landeros MD Active ASPIRIN 81 MG CHEW TAB 1 tablet by mouth daily ASPIRIN 07232457025 Active Tu Landeros MD Active AMBIEN 10 MG TAB 1 tab by mouth at bedtime as needed for sleep AMBIEN 10 MG TAB 992204 ZOLPIDEM TARTRATE Inactive METFORMIN HCL 500 MG TABS 1 PO BID METFORMIN HCL 500 MG TABS 939881 METFORMIN HCL Inactive REGLAN 10 MG TAB 1 po TID PRN [place] REGLAN 10 MG TAB 353211 METOCLOPRAMIDE HCL Inactive MECLIZINE HCL 25 MG CHEW TAB 1 four times a day as needed for dizziness 08/05 MECLIZINE HCL 25 MG CHEW TAB 928303 MECLIZINE HCL Inactive SOMA 350 MG TAB 1 po q 6 hours prn spasm SOMA 350 MG TAB 416910 CARISOPRODOL Inactive MELATONIN 5 MG TABS Take one by mouth daily MELATONIN 5 MG TABS 507613 MELATONIN Inactive MULTIVITAMINS TABS Take one by mouth daily MULTIVITAMINS TABS MULTIPLE VITAMIN Inactive LORTAB 5 5-500 MG TABS 1/2 to 1 tablet by mouth every 4 hours as needed for pain LORTAB 5 5-500 MG TABS HYDROCODONE- ACETAMINOPHEN Inactive XANAX 0.5 MG TABS 1 tablet every 6 hrs prn XANAX 0.5 MG TABS 244602 ALPRAZOLAM Inactive AUGMENTIN 875-125 MG TAB 1 tab by mouth twice daily with food AUGMENTIN 875-125 MG TAB 804635 AMOXICILLIN-POT CLAVULANATE Inactive ALPRAZOLAM 0.5 MG TABS 1 tab every 6hrs as needed ALPRAZOLAM 0.5 MG TABS 427403 ALPRAZOLAM Inactive SPIRONOLACTONE 25 MG TAB 0.5 tablet by mouth daily SPIRONOLACTONE 25 MG TAB 859414 SPIRONOLACTONE Inactive ACCU-CHEK KEYONA PLUS W/DEVICE KIT Use for testing bloodsugars three times daily as needed ACCU-CHEK KEYONA PLUS W/DEVICE KIT BLOOD GLUCOSE MONITORING SUPPL Inactive ACCU-CHEK KEYONA PLUS STRP Use for testing bloodsugars three times daily as needed ACCU-CHEK KEYONA PLUS STRP GLUCOSE BLOOD Inactive ACCU-CHEK FASTCLIX LANCETS MIS Use to check bloodsugar three times daily as needed ACCU-CHEK FASTCLIX LANCETS [facility] 333[facility]167563 LANCETS Inactive TRAMADOL HCL 50 MG TABS 1 tablets every 6 hours as needed for pain TRAMADOL HCL 50 MG TABS 134956 TRAMADOL HCL Inactive VENLAFAXINE HCL 75 MG TABS 1 po BID VENLAFAXINE HCL 75 MG TABS 697170 VENLAFAXINE HCL Inactive HYDROCODONE-ACETAMINOPHEN 5-500 MG TABS take one po Q 4-6 hours prn HYDROCODONE-ACETAMINOPHEN 5-500 MG TABS HYDROCODONE- ACETAMINOPHEN Inactive LORTAB 5 5-500 MG TABS 1/2 to 1 tablet by mouth every 4 hours as needed for pain LORTAB 5 5-500 MG TABS HYDROCODONE- ACETAMINOPHEN Inactive LAMISIL 250 MG TAB 1 po qd LAMISIL 250 MG TAB 119687 TERBINAFINE HCL Inactive VENLAFAXINE HCL 37.5 MG TABS 1 po BID VENLAFAXINE HCL 37.5 MG TABS 563947 VENLAFAXINE HCL Inactive CIPRO 500 MG TAB 1 tablet by mouth twice daily CIPRO 500 MG TAB 063777 CIPROFLOXACIN HCL Inactive VENLAFAXINE HCL 75 MG TABS 1 po BID VENLAFAXINE HCL 75 MG TABS 626982 VENLAFAXINE HCL Inactive SIMVASTATIN 40 MG TABS Take one by mouth daily SIMVASTATIN 40 MG TABS 250604 SIMVASTATIN Inactive OMEPRAZOLE 20 MG TBEC 1 PO 30 MIN BEFORE 1ST MEAL OMEPRAZOLE 20 MG TBEC 213956 OMEPRAZOLE Inactive FENOFIBRATE 145 MG TABS 1 po qd FENOFIBRATE 145 MG TABS 481790 FENOFIBRATE Inactive BACTRIM DS 800-160 MG TABS 1 bid x 14 day start 09-28-13 BACTRIM DS 800-160 MG TABS 598517 SULFAMETHOXAZOLE-TRIMETHOPRIM Inactive B-12 100 MCG TABS Take one by mouth daily B-12 100 MCG TABS CYANOCOBALAMIN Inactive GABAPENTIN 100 MG CAPS 1 po bid GABAPENTIN 100 MG CAPS 622812 GABAPENTIN Inactive HYDROCODONE-ACETAMINOPHEN 5-325 MG TABS 1 tab by mouth every 6 hours as needed for pain HYDROCODONE-ACETAMINOPHEN 5-325 MG TABS 924600 HYDROCODONE-ACETAMINOPHEN Inactive CIPRO 500 MG TABS 1 bid x 14 days start 09-28-13 CIPRO 500 MG TABS 261304 CIPROFLOXACIN HCL Inactive ALIGN 4 MG CAPS [...] as needed DICLOFENAC SODIUM 50 MG TBEC 631981 DICLOFENAC SODIUM Inactive PREDNISONE 20 MG TAB 2 tablets once daily for 2 days, then 1 tablet once daily for 2 days PREDNISONE 20 MG TAB 442059 PREDNISONE Inactive TRUEDRAW LANCING DEVICE MISC Test [...] at bedtime prn REQUIP 2 MG TABS 821147 ROPINIROLE HCL Inactive TRIAMCINOLONE ACETONIDE 0.1 % OINT Apply to affected areas TID for up to 2 weeks TRIAMCINOLONE ACETONIDE 0.1 % OINT 1730514 TRIAMCINOLONE ACETONIDE Inactive PREDNISONE 20 MG TAB 2 tabs daily for 3 days, 1 tab daily for 3 days, 1/2 tab daily for 2 days PREDNISONE 20 MG TAB 108666 PREDNISONE Inactive PREDNISONE 20 MG TAB 2 tabs daily for 3 days, 1 tab daily for 3 days, 1/2 tab daily for 2 days PREDNISONE 20 MG TAB 770165 PREDNISONE Inactive BACTRIM DS 800-160 MG TABS 1 po BID x 7 days BACTRIM DS 800-160 MG TABS 858968 SULFAMETHOXAZOLE-TRIMETHOPRIM Inactive ZITHROMAX 250 MG TAB 2 po today, then 1 po q days 2-5 ZITHROMAX 250 MG TAB 9357254 AZITHROMYCIN Inactive Advance Directives Directive Description Start Date DISCUSSED WITH PATIENT -- NO DECISION MADE Immunizations Vaccine Administration Date Value Standard Description Seasonal influenza vaccine, injectable, containing preservative, for > 3 years old (Afluria, FluLaval, Fluzone, Fluvirin, Fluarix, Agriflu(>=18 yo)) Fluzone (>3 yrs.) [IHC683] Influenza, seasonal, injectable influenza immunization (Flu Vax) has been administered 02/22/2012 influenza virus vaccine, unspecified formulation Seasonal influenza vaccine, injectable, containing preservative, for > 3 years old (Afluria, FluLaval, Fluzone, Fluvirin, Fluarix, Agriflu(>=18 yo)) Fluzone (>3 yrs.) [[id number]] Influenza, seasonal, injectable Vital Signs Date Name [...] Magnesium - Chemistry sodium, serum 143 mmol/L 101-771 1550/01/10 carbon dioxide, venous blood 28.0 mmol/L 21.0-32.0 potassium, serum 4.5 mmol/L 3.5-5.2 chloride, serum 104 mmol/L 98-107 blood glucose 158 mg/dL 65-110 urea nitrogen, blood 23 mg/dL 7-18 creatinine, serum 1.06 mg/dL 0.55-1.30 alanine aminotransferase (SGPT), serum 42 U/L 12-78 aspartate aminotransferase (SGOT), serum 32 U/L 15-37 calcium, serum 9.3 mg/dL 8.5-10.1 bilirubin, serum, total 0.20 mg/dL 0.00-1.00 cholesterol, serum 177 mg/dL 328-157 8277/01/10 triglyceride, serum, fasting 320 mg/dL 30-200 HDL cholesterol, serum 46 mg/dL 32-96 LDL cholesterol, serum 67 mg/dL 0-130 Lab Report: HGBA1C - Chemistry hemoglobin A1C, blood, as % of total hemoglobin 7.7 % 4.3-6.0 hemoglobin A1C, blood, as % of total hemoglobin 7.1 % 4.3-6.0 hemoglobin A1C, blood, as % of total hemoglobin 7.4 % 4.3-6.0 sodium, serum 140 mmol/L 913-108 8966/09/07 potassium, serum 4.3 mmol/L 3.5-5.2 chloride, serum 104 mmol/L 98-107 carbon dioxide, venous blood 27.7 mmol/L 21.0-32.0 blood glucose 156 mg/dL 65-110 calcium, serum 9.3 mg/dL 8.5-10.1 urea nitrogen, blood 23 mg/dL 7-18 creatinine, serum 1.21 mg/dL 0.55-1.30 Lab Report: Lipid Panel, Comp. Metabolic Panel - Chemistry cholesterol, serum 124 mg/dL 741-010 3062/01/12 triglyceride, serum, fasting 135 mg/dL 30-200 HDL cholesterol, serum 41 mg/dL 32-96 LDL cholesterol, serum 56 mg/dL 0-130 sodium, serum 140 mmol/L 856-738 4188/01/12 carbon dioxide, venous blood 27.7 mmol/L 21.0-32.0 potassium, serum 4.5 mmol/L 3.5-5.2 chloride, serum 104 mmol/L 98-107 blood glucose 139 mg/dL 65-110 urea nitrogen, blood 16 mg/dL 7-18 alanine aminotransferase (SGPT), serum 32 U/L 12-78 aspartate aminotransferase (SGOT), serum 25 U/L 15-37 calcium, serum 9.1 mg/dL 8.5-10.1 bilirubin, serum, total 0.50 mg/dL 0.00-1.00 Encounters Code Encounter Date Provider Facility CPT-69711 Level 4 Est. Patient 14:40:19 CDT Tu Landeros MD [facility] CPT-48768 Level 4 Est. Patient 14:06:04 [employer] Tu Landeros MD [facility] CPT-86308 Level 3 Est. Patient 14:05:18 [employer] Tu Landeros MD [facility] CPT-93420 Level 3 Est. Patient 10:06:54 [employer] Miranda Suresh APRN [facility] CPT-74329 Level 4 Est. Patient 13:50:18 [employer] Tu Landeros MD [facility] CPT-89023 Level 3 Est. Patient 10:30:04 CDT Tu Landeros MD [facility] CPT-14546 Level 4 Est. Patient 11:03:38 CDT Tu Landeros MD [facility] CPT-05163 Level 3 Est. Patient 10:20:44 CDT Fab Morales DO [facility] CPT-37602 Level 4 Est. Patient 14:38:57 CDT Tu Landeros MD [facility] CPT-82176 Level 4 Est. Patient 14:27:39 [employer] Tu Landeros MD [facility] CPT-00369 Level 4 Est. Patient 09:45:25 CDT Tu Landeros MD [facility] CPT-29846 Level 4 Est. Patient 09:05:20 [employer] Tu Landeros MD [facility] CPT-37567 Level 4 Est. Patient 14:09:06 CDT Tu Landeros MD [facility] CPT-00304 Level 3 Est. Patient 13:36:54 CDT Tu Landeros MD [facility] CPT-96936 Level 3 Est. Patient 08:59:14 CDT Tu Landeros MD [facility] CPT-25549 Level 3 Est. Patient 13:48:35 CDT Fab Morales DO [facility] CPT-58120 Level 4 Est. Patient 10:05:48 CDT Tu Landeros MD [facility] CPT-07321 Level 3 Est. Patient 13:38:42 CDT Marek BANKS [facility] CPT-20186 Level 5 Est. Patient 08:08:39 CDT Jerrica FRANCIS [facility] CPT-99302 Level 4 Est. Patient 14:23:38 CDT Tu Landeros MD [facility] CPT-13105 Level 3 Est. Patient 11:44:04 CDT Tu Landeros MD [facility] CPT-26599 Level 3 Est. Patient 11:03:20 [employer] Tu Landeros MD [facility] CPT-37389 Level 3 Est. Patient 11:03:14 [employer] Tu Landeros MD [facility] CPT-33189 Level 3 Est. Patient 12:42:49 CDT Tu Landeros MD [facility] CPT-70877 Level 3 Est. Patient 11:52:06 CDT Tu Landeros MD [facility] CPT-15510 Level 3 Est. Patient 13:58:11 CDT Tu Landeros MD [facility] CPT-79280 Level 3 Est. Patient 17:50:07 CDT Fab Morales DO [facility] CPT-33786 Level 3 Est. Patient 12:06:29 CDT Elvira Cervantes MD PhD [facility] CPT-74070 Level 3 Est. Patient 15:50:32 CDT Tu Landeros MD [facility] CPT-44602 Level 4 Est. Patient 16:08:29 CDT Tu Landeros MD [facility] CPT-92974 Level 3 Est. Patient 16:04:19 CDT Tu Landeros MD [facility] CPT-76155 Level 3 Est. Patient 11:22:30 [employer] Tu Landeros MD [facility] CPT-79189 Level 4 Est. Patient 16:24:02 [employer] Tu Landeros MD [facility] CPT-74875 Level 3 Est. Patient 17:21:23 [employer] Tu Landeros MD [facility] Procedures Code Procedure Name Date Entry Date Standard Description CPT-96245 Magnesium - LAB USE ONLY 11:14:20 [employer] CPT-67351 Lipid - LAB USE ONLY 11:14:20 [employer] CPT-87927 HGBA1C - LAB USE ONLY 11:14:20 [employer] CPT-99920 CMP - LAB USE ONLY 11:14:19 [employer] CPT-91689 CBC - LAB USE ONLY 11:14:19 [employer] CPT-10246 Venipuncture Draw Fee 11:14:18 [employer] CPT-87216 First Vx - Ix admin for Medicare patients 16:46:52 CDT CPT-03607 Fluzone Preservative Free Intramuscular Suspension 16:46 :51 CDT CPT-22629 CBC - LAB USE ONLY 17:14:46 CDT CPT-18032 HGBA1C - LAB USE ONLY 17:14:46 CDT CPT-24913 Venipuncture Draw Fee 17:14:46 CDT CPT-G0438 Initial Annual Wellness Exam 14:13:04 CDT CPT-53945 Breathing Tx 10:06:54 [employer] CPT-68865 Postop F/U Visit 10:02:45 CDT CPT-LR Lesion Removal 09:02:56 CDT CPT-JTINJ Asp/Joint Injection 15:51:27 [employer] CPT-OV Office Visit 15:52:02 [employer] CPT-OV Office Visit 15:45:11 CDT CPT-000 Give Zostavax 14:09:06 CDT CPT-37969 Administration single or combination vaccine inc oral 15 :19:04 CDT CPT-98651 Zoster Vaccine (Zostavax) 15:19:04 CDT CPT-40724 Administration single or combination vaccine inc oral 20 :51:03 CDT CPT-41804 Influenza split virus > age 3 20:51:03 CDT CPT-48604 No Charge Offi Visit 14:52:03 CDT CPT-OV Office Visit 14:57:43 CDT CPT-OV Office Visit 15:22:32 CDT CPT-45262 Administration single or combination vaccine inc oral 11 :33:15 CDT CPT-43682 Influenza split virus > age 3 11:33:15 CDT
--- OUTSIDE RECORDS SUMMARY | 2018-04-25 17:01 | XMS REPORT | Clinical Summary ---
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 Moderate or severe vision impairment, both eyes, [...] KNEE PAIN ICD-719.46 Inactive Tu Landeros MD LEG CRAMPS, NOCTURNAL ICD-729.82 Inactive Tu Landeros MD PRESSURE ULCER UNSPECIFIED SITE ICD-707.00 Tessa Landeros MD LOCALIZED SUPERFICIAL SWELLING MASS OR LUMP ICD-782.2 Inactive Tu Landeros MD ONYCHOMYCOSIS ICD-110.1 Inactive Tu Landeros MD SHOULDER PAIN, LEFT ICD-719.41 Inactive Tu Landeros MD Upper respiratory infection, viral ICD-465.9 Inactive Shaun Sy MD Open wound of other and unspecified parts of trunk, complicated ICD-879.7 Inactive Tu Landeros MD Knee pain, left, acute ICD-719.46 Tessa Landeros MD Ear pain, bilateral ICD-388.70 Tessa Landeros MD Open wound of abdominal wall, anterior, complicated ICD-879.3 Inactive Tu Landeros MD CONTUSION OF UNSPECIFIED SITE ICD-924.9 Inactive Tu Landeros MD Hot flashes ICD-627.2 Inactive Tu Landeros MD Sebaceous cyst ICD-706.2 Inactive Tu Landeros MD Medication List Medication Instructions Start Date Stop Date Generic Name NDC Status Provider Patient Instruction VENTOLIN HFA 108 (90 BASE) MCG/ACT AERS 1-2 puffs every 4 hours if needed for cough/congestion ALBUTEROL SULFATE [id number] No Longer Active Ambika Aden APRN Active ZITHROMAX 250 MG TAB 2 po today, then 1 po q days 2-5 AZITHROMYCIN 05642230291 No Longer Active Miranda Suresh APRN Active METFORMIN HCL 1000 MG TABS 1 tablet by mouth twice daily METFORMIN HCL 52610542051 Active Crystal Doyle Active FLONASE 50 MCG/ACT SUSP 1 spray each nostril twice daily until bottle empty FLUTICASONE PROPIONATE 26304254749 No Longer Active Tu Landeros MD Active COLACE 100 MG CAP 1 po BID PRN Constipation DOCUSATE SODIUM 71624730592 Active Tu Landeros MD Active SIMVASTATIN 40 MG TABS 0.5 tab daily at bedtime SIMVASTATIN 37925574613 Active Tu Landeros MD Active TRUERESULT BLOOD GLUCOSE W/DEVICE KIT test blood sugar twice daily dx 250.00 BLOOD GLUCOSE MONITORING SUPPL 53045248571 No Longer Active Tu Landeros MD Active TRUEDRAW LANCING DEVICE MISC Test twice a day dx 250.0 LANCET DEVICES 50085381155 No Longer Active Tu Landeros MD Active PREDNISONE 20 MG TAB 2 tablets once daily for 2 days, then 1 tablet once daily for 2 days PREDNISONE 78624977645 No Longer Active Tu Landeros MD Active DICLOFENAC SODIUM 50 MG TBEC 1 tablet by mouth three times a day as needed DICLOFENAC SODIUM 22290189978 No Longer Active Fab Mroales DO Active TRUEDRAW LANCING DEVICE MISC test blood sugar twice daily dx: 250.00 LANCET DEVICES 28499599998 Active Tu Landeros MD Active TRUETEST TEST INVITR STRP test blood sugar twice daily. DX 250.0 GLUCOSE BLOOD 33106873035 Active Tu Landeros MD Active EMBRACE BLOOD GLUCOSE TEST STRP test blood sugar twice daily DX 250.0 2014 GLUCOSE BLOOD 14527852248 No Longer Active Tu Landeros MD Active TRUETEST TEST STRP test blood sugar three times daily dx: 250.00 GLUCOSE BLOOD 21059748978 No Longer Active Suze Corey RMA Active TRUERESULT BLOOD GLUCOSE W/DEVICE KIT use to test blood sugar tid dx: 250.00 BLOOD GLUCOSE MONITORING SUPPL 32797910774 No Longer Active Suze Corey RMA Active ALIGN 4 MG CAPS 1 tid PROBIOTIC PRODUCT 36432493698 No Longer Active Shaun Sy MD Active CIPRO 500 MG TABS 1 bid x 14 days start 09-28-13 CIPROFLOXACIN HCL 62568617363 No Longer Active Shaun Sy MD Active TRAMADOL HCL 50 MG TABS 1-2 tablets every 6 hours as needed for pain TRAMADOL HCL 80701115305 Active Tu Landeros MD Active HYDROCODONE-ACETAMINOPHEN 5-325 MG TABS 1 tab by mouth every 6 hours as needed for pain HYDROCODONE-ACETAMINOPHEN 25021963602 No Longer Active Tu Landeros MD Active OMEPRAZOLE 20 MG CPDR 1 po q a.m. OMEPRAZOLE 57821420843 Active Tu Landeros MD Active GABAPENTIN 100 MG CAPS 1 po bid GABAPENTIN 77308086984 No Longer Active Tu Landeros MD Active B-12 100 MCG TABS Take one by mouth daily CYANOCOBALAMIN 33309511671 No Longer Active Tu Landeros MD Active GABAPENTIN 100 MG CAPS by mouth twice a day GABAPENTIN 32080640441 Active Tiffanie Doyle Active BACTRIM DS 800-160 MG TABS 1 bid x 14 day start 09-28-13 SULFAMETHOXAZOLE-TRIMETHOPRIM 87699282394 No Longer Active Tu Landeros MD Active CARVEDILOL 12.5 MG TABS 1 po BID CARVEDILOL 07000532869 Active Lesli Fatumashahid PATEL Active SUPER B COMPLEX/VITAMIN C TABS 1 qd B COMPLEX-C 92253571214 Active JASPREET Perez Active TRILIPIX 135 MG CPDR 1 q hs CHOLINE FENOFIBRATE 33640618152 Active Tu Landeros MD Active FENOFIBRATE 145 MG TABS 1 po qd FENOFIBRATE 88712085136 No Longer Active JASPREET Perez Active OMEPRAZOLE 20 MG TBEC 1 PO 30 MIN BEFORE 1ST MEAL OMEPRAZOLE 54141395937 No Longer Active JASPREET Perez Active SIMVASTATIN 40 MG TABS Take one by mouth daily SIMVASTATIN 11133552758 No Longer Active JASPREET Perez Active VENLAFAXINE HCL 37.5 MG TABS 1 bid VENLAFAXINE HCL 23710211634 Active Tu Landeros MD Active VENLAFAXINE HCL 75 MG TABS 1 po BID VENLAFAXINE HCL 70708799435 No Longer Active JASPREET Perez Active CIPRO 500 MG TAB 1 tablet by mouth twice daily CIPROFLOXACIN HCL 74735467236 No Longer Active Tu Landeros MD Active VENLAFAXINE HCL 37.5 MG TABS 1 po BID VENLAFAXINE HCL 97526469698 No Longer Active Suze Corey NURYSA Active LAMISIL 250 MG TAB 1 po qd TERBINAFINE HCL 98828340667 No Longer Active Tu Landeros MD Active LORTAB 5 5-500 MG TABS 1/2 to 1 tablet by mouth every 4 hours as needed for pain HYDROCODONE-ACETAMINOPHEN 15394649127 No Longer Active Tu Landeros MD Active ENALAPRIL MALEATE 20 MG TABS 1.5 po qd ENALAPRIL MALEATE 06146190810 Active Tu Landeros MD Active HYDROCODONE-ACETAMINOPHEN 5-500 MG TABS take one po Q 4-6 hours prn HYDROCODONE-ACETAMINOPHEN 50199433768 No Longer Active Tu Landeros MD Active BACTRIM DS 800-160 MG TABS 1 po BID x 7 days SULFAMETHOXAZOLE-TRIMETHOPRIM 74058143934 No Longer Active Tu Landeros MD Active VENLAFAXINE HCL 75 MG TABS 1 po BID VENLAFAXINE HCL 23344071796 No Longer Active Elvira Cervantes MD PhD Active TRAMADOL HCL 50 MG TABS 1 tablets every 6 hours as needed for pain TRAMADOL HCL 51879228900 No Longer Active Tu Landeros MD Active ACCU-CHEK FASTCLIX LANCETS MISC Use to check bloodsugar three times daily as needed LANCETS 76957620875 No Longer Active Tu Landeros MD Active ACCU-CHEK KEYONA PLUS STRP Use for testing bloodsugars three times daily as needed GLUCOSE BLOOD 54282309924 No Longer Active Tu Landeros MD Active ACCU-CHEK KEYONA PLUS W/DEVICE KIT Use for testing bloodsugars three times daily as needed BLOOD GLUCOSE MONITORING SUPPL 16108262722 No Longer Active Tu Landeros MD Active SPIRONOLACTONE 25 MG TAB 0.5 tablet by mouth daily SPIRONOLACTONE 97793674439 No Longer Active Tu Landeros MD Active ALPRAZOLAM 0.5 MG TABS 1 tab every 6hrs as needed ALPRAZOLAM 50595505764 No Longer Active Tu Landeros MD Active AUGMENTIN 875-125 MG TAB 1 tab by mouth twice daily with food AMOXICILLIN-POT CLAVULANATE 92816880719 No Longer Active Tu Landeros MD Active PREDNISONE 20 MG TAB 2 tabs daily for 3 days, 1 tab daily for 3 days, 1/2 tab daily for 2 days PREDNISONE 20485904211 No Longer Active Tu Landeros MD Active XANAX 0.5 MG TABS 1 tablet every 6 hrs prn ALPRAZOLAM 18399075927 No Longer Active Tu Landeros MD Active PREDNISONE 20 MG TAB 2 tabs daily for 3 days, 1 tab daily for 3 days, 1/2 tab daily for 2 days PREDNISONE 69852145705 No Longer Active Tu Landeros MD Active TRIAMCINOLONE ACETONIDE 0.1 % OINT Apply to affected areas TID for up to 2 weeks TRIAMCINOLONE ACETONIDE 74850494759 No Longer Active Tu Landeros MD Active LORTAB 5 5-500 MG TABS 1/2 to 1 tablet by mouth every 4 hours as needed for pain HYDROCODONE-ACETAMINOPHEN 92577416251 No Longer Active Tu Landeros MD Active MULTIVITAMINS TABS Take one by mouth daily MULTIPLE VITAMIN 00127645347 No Longer Active Tu Landeros MD Active MELATONIN 5 MG TABS Take one by mouth daily MELATONIN 86299746555 No Longer Active Tu Landeros MD Active SOMA 350 MG TAB 1 po q 6 hours prn spasm CARISOPRODOL 57662086498 No Longer Active Tu Landeros MD Active MECLIZINE HCL 25 MG CHEW TAB 1 four times a day as needed for dizziness 08/05 MECLIZINE HCL 39386933572 No Longer Active Fab Morales DO Active ANGEL BREEZE 2 TEST DISK test tid prn GLUCOSE BLOOD 79715387339 No Longer Active Negra Scott RN Active REGLAN 10 MG TAB 1 po TID PRN [place] METOCLOPRAMIDE HCL 10142736749 No Longer Active Tu Landeros MD Active METFORMIN HCL 500 MG TABS 1 PO BID METFORMIN HCL 13463312458 No Longer Active Tu Landeros MD Active AMBIEN 10 MG TAB 1 tab by mouth at bedtime as needed for sleep ZOLPIDEM TARTRATE 69052293644 No Longer Active Tu Landeros MD Active FLUOXETINE HCL 40 MG CAPS 1 po q day FLUOXETINE HCL 98214500604 No Longer Active Mayra Terry Active FISH OIL 1000 MG CAPS Take one by mouth daily OMEGA-3 FATTY ACIDS 13034958132 Active Tu Landeros MD Active GLUCOSAMINE 500 MG TABS Take 2 tab po qd GLUCOSAMINE 38123643415 Active Tu Landeros MD Active TRILIPIX 135 MG CPDR 1 po qd CHOLINE FENOFIBRATE 78409498359 No Longer Active Tu Landeros MD Active ASPIRIN 81 MG CHEW TAB 1 tablet by mouth daily ASPIRIN 69955633543 Active Tu Landeros MD Active FUROSEMIDE 40 MG TAB 1 tablet by mouth daily FUROSEMIDE 49656494185 Active Tu Landeros MD Active REQUIP 2 MG TABS Take one tablet at bedtime prn ROPINIROLE HCL 36663711883 Active Tu Landeros MD Active KLOR-CON 10 10 MEQ CR-TABS TAKE 2 TABS DAILY POTASSIUM CHLORIDE 10816150853 Active Tu Landeros MD Active AMBIEN 10 MG TAB 1 tab by mouth at bedtime as needed for sleep AMBIEN 10 MG TAB 362339 ZOLPIDEM TARTRATE Inactive METFORMIN HCL 500 MG TABS 1 PO BID METFORMIN HCL 500 MG TABS 581996 METFORMIN HCL Inactive REGLAN 10 MG TAB 1 po TID PRN [place] REGLAN 10 MG TAB 068975 METOCLOPRAMIDE HCL Inactive MECLIZINE HCL 25 MG CHEW TAB 1 four times a day as needed for dizziness 08/05 MECLIZINE HCL 25 MG CHEW TAB 809209 MECLIZINE HCL Inactive SOMA 350 MG TAB 1 po q 6 hours prn spasm SOMA 350 MG TAB 105707 CARISOPRODOL Inactive MELATONIN 5 MG TABS Take one by mouth daily MELATONIN 5 MG TABS 259167 MELATONIN Inactive MULTIVITAMINS TABS Take one by mouth daily MULTIVITAMINS TABS MULTIPLE VITAMIN Inactive LORTAB 5 5-500 MG TABS 1/2 to 1 tablet by mouth every 4 hours as needed for pain LORTAB 5 5-500 MG TABS HYDROCODONE- ACETAMINOPHEN Inactive XANAX 0.5 MG TABS 1 tablet every 6 hrs prn XANAX 0.5 MG TABS 656970 ALPRAZOLAM Inactive AUGMENTIN 875-125 MG TAB 1 tab by mouth twice daily with food AUGMENTIN 875-125 MG TAB 710628 AMOXICILLIN-POT CLAVULANATE Inactive ALPRAZOLAM 0.5 MG TABS 1 tab every 6hrs as needed ALPRAZOLAM 0.5 MG TABS 379552 ALPRAZOLAM Inactive SPIRONOLACTONE 25 MG TAB 0.5 tablet by mouth daily SPIRONOLACTONE 25 MG TAB 064687 SPIRONOLACTONE Inactive ACCU-CHEK KEYONA PLUS W/DEVICE KIT Use for testing bloodsugars three times daily as needed ACCU-CHEK KEYONA PLUS W/DEVICE KIT BLOOD GLUCOSE MONITORING SUPPL Inactive ACCU-CHEK KEYONA PLUS STRP Use for testing bloodsugars three times daily as needed ACCU-CHEK KEYONA PLUS STRP GLUCOSE BLOOD Inactive ACCU-CHEK FASTCLIX LANCETS MISC Use to check bloodsugar three times daily as needed ACCU-CHEK FASTCLIX LANCETS MISC 24546735369 LANCETS Inactive TRAMADOL HCL 50 MG TABS 1 tablets every 6 hours as needed for pain TRAMADOL HCL 50 MG TABS 432143 TRAMADOL HCL Inactive VENLAFAXINE HCL 75 MG TABS 1 po BID VENLAFAXINE HCL 75 MG TABS 428622 VENLAFAXINE HCL Inactive HYDROCODONE-ACETAMINOPHEN 5-500 MG TABS take one po Q 4-6 hours prn HYDROCODONE-ACETAMINOPHEN 5-500 MG TABS HYDROCODONE- ACETAMINOPHEN Inactive LORTAB 5 5-500 MG TABS 1/2 to 1 tablet by mouth every 4 hours as needed for pain LORTAB 5 5-500 MG TABS HYDROCODONE- ACETAMINOPHEN Inactive LAMISIL 250 MG TAB 1 po qd LAMISIL 250 MG TAB 341864 TERBINAFINE HCL Inactive VENLAFAXINE HCL 37.5 MG TABS 1 po BID VENLAFAXINE HCL 37.5 MG TABS 118422 VENLAFAXINE HCL Inactive CIPRO 500 MG TAB 1 tablet by mouth twice daily CIPRO 500 MG TAB 008979 CIPROFLOXACIN HCL Inactive VENLAFAXINE HCL 75 MG TABS 1 po BID VENLAFAXINE HCL 75 MG TABS 756936 VENLAFAXINE HCL Inactive SIMVASTATIN 40 MG TABS Take one by mouth daily SIMVASTATIN 40 MG TABS 038761 SIMVASTATIN Inactive OMEPRAZOLE 20 MG TBEC 1 PO 30 MIN BEFORE 1ST MEAL OMEPRAZOLE 20 MG TBEC 349569 OMEPRAZOLE Inactive FENOFIBRATE 145 MG TABS 1 po qd FENOFIBRATE 145 MG TABS 014944 FENOFIBRATE Inactive BACTRIM DS 800-160 MG TABS 1 bid x 14 day start 09-28-13 BACTRIM DS 800-160 MG TABS 630637 SULFAMETHOXAZOLE-TRIMETHOPRIM Inactive B-12 100 MCG TABS Take one by mouth daily B-12 100 MCG TABS CYANOCOBALAMIN Inactive GABAPENTIN 100 MG CAPS 1 po bid GABAPENTIN 100 MG CAPS 496267 GABAPENTIN Inactive HYDROCODONE-ACETAMINOPHEN 5-325 MG TABS 1 tab by mouth every 6 hours as needed for pain HYDROCODONE-ACETAMINOPHEN 5-325 MG TABS 763859 HYDROCODONE-ACETAMINOPHEN Inactive CIPRO 500 MG TABS 1 bid x 14 days start 09-28-13 CIPRO 500 MG TABS 126442 CIPROFLOXACIN HCL Inactive ALIGN 4 MG CAPS [...] as needed DICLOFENAC SODIUM 50 MG TBEC 801201 DICLOFENAC SODIUM Inactive PREDNISONE 20 MG TAB 2 tablets once daily for 2 days, then 1 tablet once daily for 2 days PREDNISONE 20 MG TAB 713421 PREDNISONE Inactive TRUEDRAW LANCING DEVICE MISC Test [...] 2 weeks TRIAMCINOLONE ACETONIDE 0.1 % OINT 7694040 TRIAMCINOLONE ACETONIDE Inactive PREDNISONE 20 MG TAB 2 tabs daily for 3 days, 1 tab daily for 3 days, 1/2 tab daily for 2 days PREDNISONE 20 MG TAB 377919 PREDNISONE Inactive PREDNISONE 20 MG TAB 2 tabs daily for 3 days, 1 tab daily for 3 days, 1/2 tab daily for 2 days PREDNISONE 20 MG TAB 016190 PREDNISONE Inactive BACTRIM DS 800-160 MG TABS 1 po BID x 7 days BACTRIM DS 800-160 MG TABS 497034 SULFAMETHOXAZOLE-TRIMETHOPRIM Inactive ZITHROMAX 250 MG TAB 2 po today, then 1 po q days 2-5 ZITHROMAX 250 MG TAB 2139854 AZITHROMYCIN Inactive Advance Directives Directive Description Start Date DISCUSSED WITH PATIENT -- NO DECISION MADE Immunizations Vaccine Administration Date Value Standard Description Seasonal influenza vaccine, injectable, containing preservative, for > 3 years old (Afluria, FluLaval, Fluzone, Fluvirin, Fluarix, Agriflu(>=18 yo)) Fluzone (>3 yrs.) [[id number]] Influenza, seasonal, injectable influenza immunization (Flu Vax) has been administered 02/22/2012 influenza virus vaccine, unspecified formulation Seasonal influenza vaccine, injectable, containing preservative, for > 3 years old (Afluria, FluLaval, Fluzone, Fluvirin, Fluarix, Agriflu(>=18 yo)) Fluzone (>3 yrs.) [[id number]] Influenza, seasonal, injectable Vital Signs Date Name [...] MICROALBUMIN - Chemistry sodium, serum 142 mmol/L 053-906 4065/10/08 potassium, serum 4.5 mmol/L 3.5-5.2 chloride, serum [...] 0.30 mg/dL 0.00-1.00 cholesterol, serum 111 mg/dL 278-372 4792/07/28 triglyceride, serum, fasting 177 mg/dL 30-200 HDL [...] Panel - Chemistry cholesterol, serum 124 mg/dL 991-278 8994/01/12 triglyceride, serum, fasting 135 mg/dL 30-200 HDL cholesterol, serum 41 mg/dL 32-96 LDL cholesterol, serum 56 mg/dL 0-130 sodium, serum 140 mmol/L 950-785 3763/01/12 carbon dioxide, venous blood 27.7 mmol/L 21.0-32.0 potassium, serum 4.5 mmol/L 3.5-5.2 chloride, serum 104 mmol/L 98-107 blood glucose 139 mg/dL 65-110 urea nitrogen, blood 16 mg/dL 7-18 alanine aminotransferase (SGPT), serum 32 U/L 12-78 aspartate aminotransferase (SGOT), serum 25 U/L 15-37 calcium, serum 9.1 mg/dL 8.5-10.1 bilirubin, serum, total 0.50 mg/dL 0.00-1.00 Encounters Code Encounter Date Provider Facility CPT-47605 Level 4 Est. 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 [place] CPT-37893 Level 3 Est. Patient 14:05:18 ANNEALING FURNACE OPERATOR Tu Landeros MD [facility] [place] CPT-48200 Level 3 Est. Patient 10:06:54 ANNEALING FURNACE OPERATOR Miranda Suresh APRN [facility] CPT-37554 Level 4 Est. Patient 13:50:18 ANNEALING FURNACE OPERATOR Tu Landeros MD [facility] CPT-30213 Level 3 Est. Patient 10:30:04 CDT Tu Landeros MD [facility] CPT-55250 Level 4 Est. Patient 11:03:38 CDT Tu Landeros MD [facility] CPT-88292 Level 3 Est. Patient 10:20:44 CDT Fab Morales DO [facility] CPT-56740 Level 4 Est. Patient 14:38:57 CDT Tu Landeros MD [facility] CPT-56449 Level 4 Est. Patient 14:27:39 ANNEALING FURNACE OPERATOR Tu Landeros MD [facility] CPT-17458 Level 4 Est. Patient 09:45:25 CDT Tu Landeros MD [facility] CPT-67938 Level 4 Est. Patient 09:05:20 ANNEALING FURNACE OPERATOR Tu aLnderos MD [facility] CPT-85601 Level 4 Est. Patient 14:09:06 CDT Tu Landeros MD [facility] CPT-46875 Level 3 Est. Patient 13:36:54 CDT Tu Landeros MD [facility] CPT-32028 Level 3 Est. Patient 08:59:14 CDT Tu Landeros MD [facility] CPT-80380 Level 3 Est. Patient 13:48:35 CDT Fab Morales DO [facility] CPT-10235 Level 4 Est. Patient 10:05:48 CDT Tu Landeros MD [facility] CPT-94699 Level 3 Est. Patient 13:38:42 CDT Marek BANKS [facility] CPT-40981 Level 5 Est. Patient 08:08:39 CDT Jerrica FRANCIS [facility] CPT-98164 Level 4 Est. Patient 14:23:38 CDT Tu Landeros MD [facility] CPT-27124 Level 3 Est. Patient 11:44:04 CDT Tu Landeros MD [facility] CPT-34888 Level 3 Est. Patient 11:03:20 ANNEALING FURNACE OPERATOR Tu Landeros MD [facility] CPT-89202 Level 3 Est. Patient 11:03:14 ANNEALING FURNACE OPERATOR Tu Landeros MD [facility] CPT-97146 Level 3 Est. Patient 12:42:49 CDT Tu Landeros MD [facility] CPT-20506 Level 3 Est. Patient 11:52:06 CDT Tu Landeros MD [facility] CPT-31402 Level 3 Est. Patient 13:58:11 CDT Tu Landeros MD [facility] CPT-32474 Level 3 Est. Patient 17:50:07 CDT Fab Morales DO [facility] CPT-27122 Level 3 Est. Patient 12:06:29 CDT Elvira Cervantes MD PhD [facility] CPT-82052 Level 3 Est. Patient 15:50:32 CDT Tu Landeros MD [facility] CPT-10525 Level 4 Est. Patient 16:08:29 CDT Tu Landeros MD [facility] CPT-24221 Level 3 Est. Patient 16:04:19 CDT Tu Landeros MD [facility] CPT-47393 Level 3 Est. Patient 11:22:30 ANNEALING FURNACE OPERATOR Tu Landeros MD [facility] CPT-22009 Level 4 Est. Patient 16:24:02 ANNEALING FURNACE OPERATOR Tu Landeros MD [facility] CPT-36759 Level 3 Est. Patient 17:21:23 ANNEALING FURNACE OPERATOR Tu Landeros MD [facility] Procedures Code Procedure Name Date Entry Date Standard Description CPT-G0438 Initial Annual Wellness Exam 14:13:04 CDT CPT-72168 Breathing Tx 10:06:54 ANNEALING FURNACE OPERATOR CPT-47334 Postop F/U Visit 10:02:45 CDT CPT-LR Lesion Removal 09:02:56 CDT CPT-JTINJ Asp/Joint Injection 15:51:27 ANNEALING FURNACE OPERATOR CPT-OV Office Visit 15:52:02 ANNEALING FURNACE OPERATOR CPT-OV Office Visit 15:45:11 CDT CPT-000 Give Zostavax 14:09:06 CDT CPT-90184 Administration single or combination vaccine inc oral 15 :19:04 CDT CPT-76534 Zoster Vaccine (Zostavax) 15:19:04 CDT CPT-66370 Administration single or combination vaccine inc oral 20 :51:03 CDT CPT-17047 Influenza split virus > age 3 20:51:03 CDT CPT-67266 No Charge Offi Visit 14:52:03 CDT CPT-OV Office Visit 14:57:43 CDT CPT-OV Office Visit 15:22:32 CDT CPT-16441 Administration single or combination vaccine inc oral 11 :33:15 CDT CPT-97128 Influenza split virus > age 3 11:33:15 CDT
--- OUTSIDE RECORDS SUMMARY | 2018-04-25 17:05 | XMS REPORT | Clinical Summary ---
Author Author Admin, SACHI Organization [employer] Address Unknown Phone Unavailable Allergies, Adverse Reactions, [...] ICD- 369.20 Tessa Landeros MD ONYCHOMYCOSIS ICD-110.1 Inactive Tu Landeros MD Medication List Medication Instructions Start Date Stop Date Generic Name NDC Status Provider Patient Instruction CYCLOBENZAPRINE HCL 10 MG ORAL TABS 1 po TID PRN Muscle Spasm CYCLOBENZAPRINE HCL 77633072763 Active Tu Landeros MD Active DICLOFENAC SODIUM 50 MG ORAL TBEC 1 po BID PRN Pain DICLOFENAC SODIUM 43381883146 Active Tu Landeros MD Active INVOKANA 100 MG ORAL TABS 1 po qd CANAGLIFLOZIN 07757518653 Active Tu Landeros MD Active GLIPIZIDE 5 MG ORAL TABS 1 po qd GLIPIZIDE 81360880141 No Longer Active Tu Landeros MD Active VENLAFAXINE HCL 75 MG ORAL TABS 1 po BID VENLAFAXINE HCL 23812249847 Active Tu Landeros MD Active GLIMEPIRIDE 1 MG ORAL TABS 1 po qd GLIMEPIRIDE 61559870390 No Longer Active Tu Landeros MD Active TRUE METRIX BLOOD GLUCOSE TEST INVITR STRP Test blood sugar BID Dx: E11.9 GLUCOSE BLOOD 86199979332 Active uT Landeros MD Active TRUE METRIX AIR GLUCOSE METER W/DEVICE KIT Test blood glucose BID Dx: E11.9 BLOOD GLUCOSE MONITORING SUPPL 49152647460 Active Tu Landeros MD Active TRUETEST TEST INVITR STRP test blood sugar twice daily. DX 250.0 GLUCOSE BLOOD 49925295089 No Longer Active Mirna Stanley LPN Active TRUEDRAW LANCING DEVICE MISC test blood sugar twice daily dx: 250.00 LANCET DEVICES 94550281313 No Longer Active Mirna Stanley LPN Active ENALAPRIL MALEATE 20 MG TABS 2 po qd ENALAPRIL MALEATE 38321619063 Active Lesli Kellogg APRN Active SUPER B COMPLEX/VITAMIN C TABS 1 qd B COMPLEX-C 19164333660 No Longer Active Tu Landeros MD Active ASPIRIN EC 81 MG ORAL TBEC 1 po qd ASPIRIN 62013109219 Active Tu Landeros MD Active GLUCOSAMINE 500 MG TABS 2 po qd GLUCOSAMINE Active Tu Landeros MD Active SIMVASTATIN 40 MG TABS 0.5 po qHS SIMVASTATIN 43720184555 Active Tu Landeros MD Active FISH OIL 1000 MG CAPS 1 po qd OMEGA-3 FATTY ACIDS 05994599239 Active Tu Landeros MD Active METFORMIN HCL 1000 MG TABS 1 po BID METFORMIN HCL 46955970948 Active Tu Landeros MD Active KLOR-CON 10 10 MEQ CR-TABS 2 po qd POTASSIUM CHLORIDE 96394330771 Active Tu Landeros MD Active FUROSEMIDE 40 MG TAB 1 po qd FUROSEMIDE 06457765934 Active Tu Landeros MD Active REQUIP 2 MG ORAL TABS 1 po qHS PRN Restless legs ROPINIROLE HCL 19060629603 Active Tu Landeros MD Active GABAPENTIN 100 MG CAPS 1 po BID GABAPENTIN 98497899466 Active Tu Landeros MD Active REQUIP 2 MG TABS Take one tablet at bedtime prn ROPINIROLE HCL 98271448212 No Longer Active Tu Landeros MD Active VENTOLIN HFA 108 (90 BASE) MCG/ACT AERS 1-2 puffs every 4 hours if needed for cough/congestion ALBUTEROL SULFATE 30951694257 No Longer Active Ambika Aden APRN Active ZITHROMAX 250 MG TAB 2 po today, then 1 po q days 2-5 AZITHROMYCIN 59208107788 No Longer Active Miranda Suresh APRN Active FLONASE 50 MCG/ACT SUSP 1 spray each nostril twice daily until bottle empty FLUTICASONE PROPIONATE 66367004832 No Longer Active Tu Landeros MD Active COLACE 100 MG CAP 1 po BID PRN Constipation DOCUSATE SODIUM 52685769420 Active Tu Landeros MD Active TRUERESULT BLOOD GLUCOSE W/DEVICE KIT test blood sugar twice daily dx 250.00 BLOOD GLUCOSE MONITORING SUPPL 85591125258 No Longer Active Tu Landeros MD Active TRUEDRAW LANCING DEVICE MISC Test twice a day dx 250.0 LANCET DEVICES 66067055438 No Longer Active Tu Landeros MD Active PREDNISONE 20 MG TAB 2 tablets once daily for 2 days, then 1 tablet once daily for 2 days PREDNISONE 84893137403 No Longer Active Tu Landeros MD Active DICLOFENAC SODIUM 50 MG TBEC 1 tablet by mouth three times a day as needed DICLOFENAC SODIUM 09416018551 No Longer Active Fab Morales DO Active EMBRACE BLOOD GLUCOSE TEST STRP test blood sugar twice daily DX 250.0 2014 GLUCOSE BLOOD 53485443480 No Longer Active Tu Landeros MD Active TRUETEST TEST STRP test blood sugar three times daily dx: 250.00 GLUCOSE BLOOD 46906850143 No Longer Active Suze Nicole RMA Active TRUERESULT BLOOD GLUCOSE W/DEVICE KIT use to test blood sugar tid dx: 250.00 BLOOD GLUCOSE MONITORING SUPPL 90675887631 No Longer Active Suze Corey RMA Active ALIGN 4 MG CAPS 1 tid PROBIOTIC PRODUCT 08642042947 No Longer Active Shaun Sy MD Active CIPRO 500 MG TABS 1 bid x 14 days start 09-28-13 CIPROFLOXACIN HCL 74772431125 No Longer Active Shaun Sy MD Active TRAMADOL HCL 50 MG TABS 1-2 tablets every 6 hours as needed for pain TRAMADOL HCL 33422287903 Active Lesli Kellogg APRN Active HYDROCODONE-ACETAMINOPHEN 5-325 MG TABS 1 tab by mouth every 6 hours as needed for pain HYDROCODONE-ACETAMINOPHEN 79561864513 No Longer Active Tu Landeros MD Active OMEPRAZOLE 20 MG CPDR 1 po q a.m. OMEPRAZOLE 68541260592 Active Fab Morales DO Active GABAPENTIN 100 MG CAPS 1 po bid GABAPENTIN 98256711786 No Longer Active Tu Landeros MD Active B-12 100 MCG TABS Take one by mouth daily CYANOCOBALAMIN 61257409137 No Longer Active Tu Landeros MD Active BACTRIM DS 800-160 MG TABS 1 bid x 14 day start 09-28-13 SULFAMETHOXAZOLE-TRIMETHOPRIM 23872152488 No Longer Active Tu Landeros MD Active CARVEDILOL 12.5 MG TABS 1 po BID CARVEDILOL 89930296813 Active Lesli Kellogg APRN Active TRILIPIX 135 MG CPDR 1 q hs CHOLINE FENOFIBRATE 31522407188 Active Tu Landeros MD Active FENOFIBRATE 145 MG TABS 1 po qd FENOFIBRATE 02344844331 No Longer Active JASPREET Perez Active OMEPRAZOLE 20 MG TBEC 1 PO 30 MIN BEFORE 1ST MEAL OMEPRAZOLE 59396732692 No Longer Active JASPREET Perez Active SIMVASTATIN 40 MG TABS Take one by mouth daily SIMVASTATIN 22728346736 No Longer Active JASPREET Perez Active VENLAFAXINE HCL 75 MG TABS 1 po BID VENLAFAXINE HCL 69662201963 No Longer Active JASPREET Perez Active CIPRO 500 MG TAB 1 tablet by mouth twice daily CIPROFLOXACIN HCL 83841706107 No Longer Active Tu Landeros MD Active VENLAFAXINE HCL 37.5 MG TABS 1 po BID VENLAFAXINE HCL 47845377998 No Longer Active Suze Nicole [facility] Active LAMISIL 250 MG TAB 1 po qd TERBINAFINE HCL 95146750141 No Longer Active Tu Landeros MD Active LORTAB 5 5-500 MG TABS 1/2 to 1 tablet by mouth every 4 hours as needed for pain HYDROCODONE-ACETAMINOPHEN 58983448614 No Longer Active Tu Landeros MD Active HYDROCODONE-ACETAMINOPHEN 5-500 MG TABS take one po Q 4-6 hours prn HYDROCODONE-ACETAMINOPHEN 14539380917 No Longer Active Tu Landeros MD Active BACTRIM DS 800-160 MG TABS 1 po BID x 7 days SULFAMETHOXAZOLE-TRIMETHOPRIM 20892419667 No Longer Active Tu Landeros MD Active VENLAFAXINE HCL 75 MG TABS 1 po BID VENLAFAXINE HCL 55685358327 No Longer Active Elvira Cervantes MD PhD Active TRAMADOL HCL 50 MG TABS 1 tablets every 6 hours as needed for pain TRAMADOL HCL 94598011213 No Longer Active Tu Landeros MD Active ACCU-CHEK FASTCLIX LANCETS MISC Use to check bloodsugar three times daily as needed LANCETS 14993978765 No Longer Active Tu Landeros MD Active ACCU-CHEK KEYONA PLUS STRP Use for testing bloodsugars three times daily as needed GLUCOSE BLOOD 33961871947 No Longer Active Tu Landeros MD Active ACCU-CHEK KEYONA PLUS W/DEVICE KIT Use for testing bloodsugars three times daily as needed BLOOD GLUCOSE MONITORING SUPPL 65911741390 No Longer Active Tu Landeros MD Active SPIRONOLACTONE 25 MG TAB 0.5 tablet by mouth daily SPIRONOLACTONE 44977371003 No Longer Active Tu Landeros MD Active ALPRAZOLAM 0.5 MG TABS 1 tab every 6hrs as needed ALPRAZOLAM 15131347096 No Longer Active Tu Landeros MD Active AUGMENTIN 875-125 MG TAB 1 tab by mouth twice daily with food AMOXICILLIN-POT CLAVULANATE 35962433118 No Longer Active Tu Landeros MD Active PREDNISONE 20 MG TAB 2 tabs daily for 3 days, 1 tab daily for 3 days, 1/2 tab daily for 2 days PREDNISONE 67559802261 No Longer Active Tu Landeros MD Active XANAX 0.5 MG TABS 1 tablet every 6 hrs prn ALPRAZOLAM 66135547274 No Longer Active Tu Landeros MD Active PREDNISONE 20 MG TAB 2 tabs daily for 3 days, 1 tab daily for 3 days, 1/2 tab daily for 2 days PREDNISONE 95372828366 No Longer Active Tu Landeros MD Active TRIAMCINOLONE ACETONIDE 0.1 % OINT Apply to affected areas TID for up to 2 weeks TRIAMCINOLONE ACETONIDE 06614692234 No Longer Active Tu Landeros MD Active LORTAB 5 5-500 MG TABS 1/2 to 1 tablet by mouth every 4 hours as needed for pain HYDROCODONE-ACETAMINOPHEN 91150379052 No Longer Active Tu Landeros MD Active MULTIVITAMINS TABS Take one by mouth daily MULTIPLE VITAMIN 54716876989 No Longer Active Tu Landeros MD Active MELATONIN 5 MG TABS Take one by mouth daily MELATONIN 33915112966 No Longer Active Tu Landeros MD Active SOMA 350 MG TAB 1 po q 6 hours prn spasm CARISOPRODOL 70283906496 No Longer Active Tu Landeros MD Active MECLIZINE HCL 25 MG CHEW TAB 1 four times a day as needed for dizziness 08/05 MECLIZINE HCL 53482579252 No Longer Active Fab Morales DO Active ANGEL BREEZE 2 TEST DISK test tid prn GLUCOSE BLOOD 40570704645 No Longer Active Negra Scott RN Active REGLAN 10 MG TAB 1 po TID PRN [place]ausea METOCLOPRAMIDE HCL 97341977212 No Longer Active Tu Landeros MD Active METFORMIN HCL 500 MG TABS 1 PO BID METFORMIN HCL 31165455844 No Longer Active Tu Landeros MD Active AMBIEN 10 MG TAB 1 tab by mouth at bedtime as needed for sleep ZOLPIDEM TARTRATE 37897692338 No Longer Active Tu Landeros MD Active FLUOXETINE HCL 40 MG CAPS 1 po q day FLUOXETINE HCL 77070402020 No Longer Active Mayra Dewy Rose Active TRILIPIX 135 MG CPDR 1 po qd CHOLINE FENOFIBRATE 67972865804 No Longer Active Tu Landeros MD Active AMBIEN 10 MG TAB 1 tab by mouth at bedtime as needed for sleep AMBIEN 10 MG TAB 444388 ZOLPIDEM TARTRATE Inactive METFORMIN HCL 500 MG TABS 1 PO BID METFORMIN HCL 500 MG TABS 325416 METFORMIN HCL Inactive REGLAN 10 MG TAB 1 po TID PRN Nausea REGLAN 10 MG TAB 716847 METOCLOPRAMIDE HCL Inactive MECLIZINE HCL 25 MG CHEW TAB 1 four times a day as needed for dizziness 08/05 MECLIZINE HCL 25 MG CHEW TAB 961724 MECLIZINE HCL Inactive SOMA 350 MG TAB 1 po q 6 hours prn spasm SOMA 350 MG TAB 382112 CARISOPRODOL Inactive MELATONIN 5 MG TABS Take one by mouth daily MELATONIN 5 MG TABS 324001 MELATONIN Inactive MULTIVITAMINS TABS Take one by mouth daily MULTIVITAMINS TABS MULTIPLE VITAMIN Inactive LORTAB 5 5-500 MG TABS 1/2 to 1 tablet by mouth every 4 hours as needed for pain LORTAB 5 5-500 MG TABS HYDROCODONE- ACETAMINOPHEN Inactive XANAX 0.5 MG TABS 1 tablet every 6 hrs prn XANAX 0.5 MG TABS 968028 ALPRAZOLAM Inactive AUGMENTIN 875-125 MG TAB 1 tab by mouth twice daily with food AUGMENTIN 875-125 MG TAB 156519 AMOXICILLIN-POT CLAVULANATE Inactive ALPRAZOLAM 0.5 MG TABS 1 tab every 6hrs as needed ALPRAZOLAM 0.5 MG TABS 365802 ALPRAZOLAM Inactive SPIRONOLACTONE 25 MG TAB 0.5 tablet by mouth daily SPIRONOLACTONE 25 MG TAB 362804 SPIRONOLACTONE Inactive ACCU-CHEK KEYONA PLUS W/DEVICE KIT Use for testing bloodsugars three times daily as needed ACCU-CHEK KEYONA PLUS W/DEVICE KIT BLOOD GLUCOSE MONITORING SUPPL Inactive ACCU-CHEK KEYONA PLUS STRP Use for testing bloodsugars three times daily as needed ACCU-CHEK KEYONA PLUS STRP GLUCOSE BLOOD Inactive ACCU-CHEK FASTCLIX LANCETS MISC Use to check bloodsugar three times daily as needed ACCU-CHEK FASTCLIX LANCETS [facility] [id number] LANCETS Inactive TRAMADOL HCL 50 MG TABS 1 tablets every 6 hours as needed for pain TRAMADOL HCL 50 MG TABS 117950 TRAMADOL HCL Inactive VENLAFAXINE HCL 75 MG TABS 1 po BID VENLAFAXINE HCL 75 MG TABS 294674 VENLAFAXINE HCL Inactive HYDROCODONE-ACETAMINOPHEN 5-500 MG TABS take one po Q 4-6 hours prn HYDROCODONE-ACETAMINOPHEN 5-500 MG TABS HYDROCODONE- ACETAMINOPHEN Inactive LORTAB 5 5-500 MG TABS 1/2 to 1 tablet by mouth every 4 hours as needed for pain LORTAB 5 5-500 MG TABS HYDROCODONE- ACETAMINOPHEN Inactive LAMISIL 250 MG TAB 1 po qd LAMISIL 250 MG TAB 290919 TERBINAFINE HCL Inactive VENLAFAXINE HCL 37.5 MG TABS 1 po BID VENLAFAXINE HCL 37.5 MG TABS 544663 VENLAFAXINE HCL Inactive CIPRO 500 MG TAB 1 tablet by mouth twice daily CIPRO 500 MG TAB 151400 CIPROFLOXACIN HCL Inactive VENLAFAXINE HCL 75 MG TABS 1 po BID VENLAFAXINE HCL 75 MG TABS 399659 VENLAFAXINE HCL Inactive SIMVASTATIN 40 MG TABS Take one by mouth daily SIMVASTATIN 40 MG TABS 617640 SIMVASTATIN Inactive OMEPRAZOLE 20 MG TBEC 1 PO 30 MIN BEFORE 1ST MEAL OMEPRAZOLE 20 MG TBEC 009699 OMEPRAZOLE Inactive FENOFIBRATE 145 MG TABS 1 po qd FENOFIBRATE 145 MG TABS 192096 FENOFIBRATE Inactive BACTRIM DS 800-160 MG TABS 1 bid x 14 day start 09-28-13 BACTRIM DS 800-160 MG TABS 332272 SULFAMETHOXAZOLE-TRIMETHOPRIM Inactive B-12 100 MCG TABS Take one by mouth daily B-12 100 MCG TABS CYANOCOBALAMIN Inactive GABAPENTIN 100 MG CAPS 1 po bid GABAPENTIN 100 MG CAPS 913777 GABAPENTIN Inactive HYDROCODONE-ACETAMINOPHEN 5-325 MG TABS 1 tab by mouth every 6 hours as needed for pain HYDROCODONE-ACETAMINOPHEN 5-325 MG TABS 556688 HYDROCODONE-ACETAMINOPHEN Inactive CIPRO 500 MG TABS 1 bid x 14 days start 09-28-13 CIPRO 500 MG TABS 057229 CIPROFLOXACIN HCL Inactive ALIGN 4 MG CAPS [...] as needed DICLOFENAC SODIUM 50 MG TBEC 598036 DICLOFENAC SODIUM Inactive PREDNISONE 20 MG TAB 2 tablets once daily for 2 days, then 1 tablet once daily for 2 days PREDNISONE 20 MG TAB 002403 PREDNISONE Inactive TRUEDRAW LANCING DEVICE MISC Test twice a day dx 250.0 TRUEDRAW LANCING DEVICE MISC LANCET DEVICES Inactive TRUERESULT BLOOD GLUCOSE W/DEVICE KIT test blood sugar twice daily dx 250.00 TRUERESULT BLOOD GLUCOSE W/DEVICE KIT BLOOD GLUCOSE MONITORING SUPPL Inactive FLONASE 50 MCG/ACT SUSP 1 spray each nostril twice daily until bottle empty FLONASE 50 MCG/ACT SUSP 0015948 FLUTICASONE PROPIONATE Inactive VENTOLIN HFA 108 (90 BASE) MCG/ACT AERS 1-2 puffs every 4 hours if needed for cough/congestion VENTOLIN HFA 108 (90 BASE) MCG/ACT AERS ALBUTEROL SULFATE Inactive REQUIP 2 MG TABS Take one tablet at bedtime prn REQUIP 2 MG TABS 660512 ROPINIROLE HCL Inactive SUPER B COMPLEX/VITAMIN C TABS 1 qd SUPER B COMPLEX/ VITAMIN C TABS 80287906669 B COMPLEX-C Inactive TRUEDRAW LANCING DEVICE MISC test blood sugar twice daily dx: 250.00 TRUEDRAW LANCING DEVICE MISC LANCET DEVICES Inactive TRUETEST TEST INVITR STRP test blood sugar twice daily. DX 250.0 TRUETEST TEST INVITR STRP GLUCOSE BLOOD Inactive TRIAMCINOLONE ACETONIDE 0.1 % OINT Apply to affected areas TID for up to 2 weeks TRIAMCINOLONE ACETONIDE 0.1 % OINT 8080413 TRIAMCINOLONE ACETONIDE Inactive PREDNISONE 20 MG TAB 2 tabs daily for 3 days, 1 tab daily for 3 days, 1/2 tab daily for 2 days PREDNISONE 20 MG TAB 837793 PREDNISONE Inactive PREDNISONE 20 MG TAB 2 tabs daily for 3 days, 1 tab daily for 3 days, 1/2 tab daily for 2 days PREDNISONE 20 MG TAB 780112 PREDNISONE Inactive BACTRIM DS 800-160 MG TABS 1 po BID x 7 days BACTRIM DS 800-160 MG TABS 733412 SULFAMETHOXAZOLE-TRIMETHOPRIM Inactive ZITHROMAX 250 MG TAB 2 po today, then 1 po q days 2-5 ZITHROMAX 250 MG TAB 5988246 AZITHROMYCIN Inactive Advance Directives Directive Description Start Date DISCUSSED WITH PATIENT -- NO DECISION MADE Immunizations Vaccine Administration Date Value Standard Description Seasonal influenza vaccine, injectable, containing preservative, for > 3 years old (Afluria, FluLaval, Fluzone, Fluvirin, Fluarix, Agriflu(>=18 yo)) Fluzone (>3 yrs.) [[id number]] Influenza, seasonal, injectable influenza immunization (Flu Vax) has been administered 02/22/2012 influenza virus vaccine, unspecified formulation Seasonal influenza vaccine, injectable, containing preservative, for > 3 years old (Afluria, FluLaval, Fluzone, Fluvirin, Fluarix, Agriflu(>=18 yo)) Fluzone (>3 yrs.) [[id number]] Influenza, seasonal, injectable Vital Signs Date Name [...] Magnesium - Chemistry sodium, serum 143 mmol/L 285-338 7658/01/10 carbon dioxide, venous blood 28.0 mmol/L 21.0-32.0 potassium, serum 4.5 mmol/L 3.5-5.2 chloride, serum 104 mmol/L 98-107 blood glucose 158 mg/dL 65-110 urea nitrogen, blood 23 mg/dL 7-18 creatinine, serum 1.06 mg/dL 0.55-1.30 alanine aminotransferase (SGPT), serum 42 U/L 12-78 aspartate aminotransferase (SGOT), serum 32 U/L 15-37 calcium, serum 9.3 mg/dL 8.5-10.1 bilirubin, serum, total 0.20 mg/dL 0.00-1.00 cholesterol, serum 177 mg/dL 513-648 8666/01/10 triglyceride, serum, fasting 320 mg/dL 30-200 HDL cholesterol, serum 46 mg/dL 32-96 LDL cholesterol, serum 67 mg/dL 0-130 Lab Report: COMPREHENSIVE METABOLIC PANEL, LIPID PANEL, HEMOGLOBIN A1c - Chemistry cholesterol, serum 135 mg/dL 077-937 7254/05/17 HDL cholesterol, serum 41 mg/dL > OR=46 triglyceride, serum, fasting 206 mg/dL <150 LDL cholesterol, serum 53 MG/DL (CALC) mg/dL <130 cholesterol/HDL ratio, serum 3.3 (calc) < OR=5.0 Lab Report: HGBA1C - Chemistry hemoglobin A1C, blood, as % of total hemoglobin 7.4 % 4.3-6.0 sodium, serum 140 mmol/L 376-990 5424/09/07 potassium, serum 4.3 mmol/L 3.5-5.2 chloride, serum [...] <30 Encounters Code Encounter Date Provider Facility CPT-67857 Level 3 Est. Patient 13:33:09 CDT Tu Landeros MD [facility] CPT-96762 Level 4 Est. Patient 14:29:21 CDT Tu Landeros MD [facility] CPT-40541 Level 4 Est. Patient 09:08:17 [facility] Tu Landeros MD [facility] CPT-17803 Level 4 Est. Patient 14:40:19 CDT Tu Landeros MD [facility] CPT-61284 Level 4 Est. Patient 14:06:04 [facility] Tu Landeros MD [facility] CPT-56370 Level 3 Est. Patient 14:05:18 [facility] Tu Landeros MD [facility] CPT-41069 Level 3 Est. Patient 10:06:54 [facility] Level 4 Est. Patient 13:50:18 [facility] Tu Landeros MD [facility] CPT-16788 Level 3 Est. Patient 10:30:04 CDT Tu Landeros MD [facility] CPT-36902 Level 4 Est. Patient 11:03:38 CDT Tu Landeros MD [facility] CPT-27581 Level 3 Est. Patient 10:20:44 CDT Fab Morales DO [facility] CPT-18332 Level 4 Est. Patient 14:38:57 CDT Tu Landeros MD [facility] CPT-95978 Level 4 Est. Patient 14:27:39 [facility] Tu Landeros MD [facility] CPT-69506 Level 4 Est. Patient 09:45:25 CDT Tu Landeros MD [facility] CPT-79016 Level 4 Est. Patient 09:05:20 [facility] Tu Landeros MD [facility] CPT-68460 Level 4 Est. Patient 14:09:06 CDT Tu Landeros MD [facility] CPT-17994 Level 3 Est. Patient 13:36:54 CDT Tu Landeros MD [facility] CPT-44465 Level 3 Est. Patient 08:59:14 CDT Tu Landeros MD [facility] CPT-67343 Level 3 Est. Patient 13:48:35 CDT Fab Morales DO [facility] CPT-81884 Level 4 Est. Patient 10:05:48 CDT Tu Landeros MD [facility] CPT-92051 Level 3 Est. Patient 13:38:42 CDT Marek BANKS [facility] CPT-81565 Level 5 Est. Patient 08:08:39 CDT Jerrica FRANCIS [facility] CPT-94945 Level 4 Est. Patient 14:23:38 CDT Tu Landeros MD [facility] CPT-47830 Level 3 Est. Patient 11:44:04 CDT Tu Landeros MD [facility] CPT-52293 Level 3 Est. Patient 11:03:20 [facility] [employer]END[facility] Tu Landeros MD [facility] CPT-16372 Level 3 Est. Patient 11:03:14 [facility] [employer] Tu Landeros MD [facility] CPT-82441 Level 3 Est. Patient 12:42:49 CDT Tu Landeros MD [facility] CPT-62586 Level 3 Est. Patient 11:52:06 CDT Tu Landeros MD [facility] CPT-44052 Level 3 Est. Patient 13:58:11 CDT Tu Landeros MD [facility] CPT-80855 Level 3 Est. Patient 17:50:07 CDT Fab Morales DO [facility] CPT-70368 Level 3 Est. Patient 12:06:29 CDT Elvira Cervantes MD PhD [facility] CPT-40416 Level 3 Est. Patient 15:50:32 CDT Tu Landeros MD [facility] CPT-35361 Level 4 Est. Patient 16:08:29 CDT Tu Landeros MD [facility] CPT-28868 Level 3 Est. Patient 16:04:19 CDT Tu Landeros MD [facility] CPT-82045 Level 3 Est. Patient 11:22:30 [facility] [employer] Tu Landeros MD [facility] CPT-22605 Level 4 Est. Patient 16:24:02 [facility] ATTEND[facility] Tu Landeros MD [facility] CPT-47283 Level 3 Est. Patient 17:21:23 [facility] [employer] Tu Landeros MD [facility] Procedures Code Procedure Name Date Entry Date Standard Description CPT-86880 Shoulder, right, comp min 2V - XRAY USE ONLY 13:50:22 CDT CPT-G0009 Administration of Pneumococcal Vaccine 15:08:26 CDT CPT-51557 Prevnar 13 Intramuscular Suspension 15:08:26 CDT 10/08 CPT-G0439 [facility] Annual Wellness Exam 14:29:22 CDT CPT-69454 Venipuncture Draw Fee 13:15:35 CDT CPT-69058 Magnesium - LAB USE ONLY 11:14:20 [facility] [employer] CPT-58180 Lipid - LAB USE ONLY 11:14:20 [facility] [employer] CPT-44445 HGBA1C - LAB USE ONLY 11:14:20 [facility] [employer] CPT-36397 CMP - LAB USE ONLY 11:14:19 [facility] CPT-25362 CBC - LAB USE ONLY 11:14:19 [facility] CPT-96418 Venipuncture Draw Fee 11:14:18 [facility] CPT-48497 First Vx - Ix admin for Medicare patients 16:46:52 CDT CPT-71193 Fluzone Preservative Free Intramuscular Suspension 16:46 :51 CDT CPT-64056 CBC - LAB USE ONLY 17:14:46 CDT CPT-72302 HGBA1C - LAB USE ONLY 17:14:46 CDT CPT-01704 Venipuncture Draw Fee 17:14:46 CDT CPT-G0438 Initial Annual Wellness Exam 14:13:04 CDT CPT-84921 Breathing Tx 10:06:54 [facility] [employer] CPT-45159 Postop F/U Visit 10:02:45 CDT CPT-LR Lesion Removal 09:02:56 CDT CPT-JTINJ Asp/Joint Injection 15:51:27 [facility] [employer] [employer]END[facility] CPT-OV Office Visit 15:52:02 [facility] [employer] CPT-OV Office Visit 15:45:11 CDT CPT-000 Give Zostavax 14:09:06 CDT CPT-78900 Administration single or combination vaccine inc oral 15 :19:04 CDT CPT-97793 Zoster Vaccine (Zostavax) 15:19:04 CDT CPT-94426 Administration single or combination vaccine inc oral 20 :51:03 CDT CPT-88824 Influenza split virus > age 3 20:51:03 CDT CPT-96341 No Charge Offi Visit 14:52:03 CDT CPT-OV Office Visit 14:57:43 CDT CPT-OV Office Visit 15:22:32 CDT CPT-59109 Administration single or combination vaccine inc oral 11 :33:15 CDT CPT-37108 Influenza split virus > age 3 11:33:15 CDT
--- OUTSIDE RECORDS SUMMARY | 2018-04-25 17:08 | XMS REPORT | Clinical Summary ---
Author Author Admin, SACHI Organization [facility] Address Unknown Phone Unavailable Allergies, Adverse Reactions, [...] magnesium metabolism URI 465.9 Active Lesli Kellogg DRILL PRESS OPERATOR FOR METAL Acute upper respiratory infections of unspecified site [...] each nostril q day 07/15 MOMETASONE FUROATE 98153954081 Active Lesli Kellogg APRN Active GUAIFENESIN ER 600 MG ORAL TABLET EXTENDED RELEASE 12 HOUR 1 twice a day as needed for congestion GUAIFENESIN 00827756846 Active Lesli Kellogg APRN Active MAGNESIUM OXIDE 400 MG ORAL TABLET 1 po BID MAGNESIUM OXIDE 16485414224 Active Tu Landeros MD Active SIMVASTATIN 20 MG ORAL TABLET 0.5 po qHS SIMVASTATIN 33857096161 Active Tu Landeros MD Active DICLOFENAC SODIUM 75 MG ORAL TABLET DELAYED RELEASE 1 po BID PRN Pain DICLOFENAC SODIUM 17293293702 No Longer Active Tu Landeros MD Active GABAPENTIN 100 MG ORAL CAPSULE 1 po TID GABAPENTIN 19467395772 Active Tu Landeros MD Active DICLOFENAC SODIUM 50 MG ORAL TABLET DELAYED RELEASE 1 po BID PRN Pain DICLOFENAC SODIUM 91187348272 No Longer Active Tu Landeros MD Active CYCLOBENZAPRINE HCL 10 MG ORAL TABLET 1 po TID PRN Muscle Spasm CYCLOBENZAPRINE HCL 13554422319 No Longer Active Tu Landeros MD Active INVOKANA 100 MG ORAL TABLET 1 po qd CANAGLIFLOZIN 81905350127 Active Tu Landeros MD Active GLIPIZIDE 5 MG ORAL TABLET 1 po qd GLIPIZIDE 13302267025 No Longer Active Tu Landeros MD Active VENLAFAXINE HCL 75 MG ORAL TABLET 1 po BID VENLAFAXINE HCL 99681539946 Active Tu Landeros MD Active GLIMEPIRIDE 1 MG ORAL TABLET 1 po qd GLIMEPIRIDE 52960804557 No Longer Active Tu Landeros MD Active TRUE METRIX BLOOD GLUCOSE TEST IN VITRO STRIP Test blood sugar BID Dx: E11.9 GLUCOSE BLOOD 70305576938 Active Tu Landeros MD Active TRUE METRIX AIR GLUCOSE METER w/Device KIT Test blood glucose BID Dx: E11.9 BLOOD GLUCOSE MONITORING SUPPL 84978756086 Active Tu Landeros MD Active TRUETEST TEST IN VITRO STRIP test blood sugar twice daily. DX 250.0 GLUCOSE BLOOD 13805647748 No Longer Active Mirna Stanley LPN Active TRUEDRAW LANCING DEVICE test blood sugar twice daily dx: 250.00 LANCET DEVICES 18644241800 No Longer Active Mirna Stanley LPN Active ENALAPRIL MALEATE 20 MG ORAL TABLET 2 po qd ENALAPRIL MALEATE 88843638939 Active Tu Landeros MD Active SUPER B COMPLEX/VITAMIN C ORAL TABLET 1 qd B COMPLEX- C 47011633918 No Longer Active Tu Landeros MD Active ASPIRIN EC 81 MG ORAL TABLET DELAYED RELEASE 1 po qd ASPIRIN 52612716348 Active Tu Landeros MD Active GLUCOSAMINE 500 MG TABS 2 po qd GLUCOSAMINE Active Tu Landeros MD Active FISH OIL 1000 MG ORAL CAPSULE 1 po qd OMEGA-3 FATTY ACIDS 77777840920 Active Tu Landeros MD Active METFORMIN HCL 1000 MG ORAL TABLET 1 po BID METFORMIN HCL 81234015044 Active Tu Landeros MD Active KLOR-CON 10 10 MEQ ORAL TABLET EXTENDED RELEASE 2 po qd POTASSIUM CHLORIDE 61093428406 Active Tu Landeros MD Active FUROSEMIDE 40 MG ORAL TABLET 1 po qd FUROSEMIDE 29799835384 Active Tu Landeros MD Active REQUIP 2 MG ORAL TABLET 1 po qHS PRN Restless legs ROPINIROLE HCL 27636067469 Active Tu Landeros MD Active REQUIP 2 MG ORAL TABLET Take one tablet at bedtime prn ROPINIROLE HCL 66683667453 No Longer Active Tu Landeros MD Active VENTOLIN HFA 108 (90 Base) MCG/ACT INHALATION AEROSOL SOLUTION 1-2 puffs every 4 hours if needed for cough/congestion ALBUTEROL SULFATE 63992009971 No Longer Active Ambika Aden APRN Active ZITHROMAX 250 MG ORAL TABLET 2 po today, then 1 po q days 2-5 AZITHROMYCIN 81407201683 No Longer Active Miranda Farah APRN Active FLONASE 50 MCG/ACT NASAL SUSPENSION 1 spray each nostril twice daily until bottle empty FLUTICASONE PROPIONATE 73810736744 No Longer Active Tu Landeros MD Active COLACE 100 MG ORAL CAPSULE 1 po BID PRN Constipation DOCUSATE SODIUM 54531270701 Active Tu Landeros MD Active TRUERESULT BLOOD GLUCOSE w/Device KIT test blood sugar twice daily dx 250.00 BLOOD GLUCOSE MONITORING SUPPL 96925860029 No Longer Active Tu Landeros MD Active TRUEDRAW LANCING DEVICE Test twice a day dx 250.0 LANCET DEVICES 16407665087 No Longer Active Tu Landeros MD Active PREDNISONE 20 MG ORAL TABLET 2 tablets once daily for 2 days, then 1 tablet once daily for 2 days PREDNISONE 44102222683 No Longer Active Tu Landeros MD Active DICLOFENAC SODIUM 50 MG ORAL TABLET DELAYED RELEASE 1 tablet by mouth three times a day as needed DICLOFENAC SODIUM 27427466255 No Longer Active Fab Morales DO Active EMBRACE BLOOD GLUCOSE TEST IN VITRO STRIP test blood sugar twice daily DX 250.0 GLUCOSE BLOOD 28084627013 No Longer Active Tu Landeros MD Active TRUETEST TEST IN VITRO STRIP test blood sugar three times daily dx: 250.00 GLUCOSE BLOOD 90667194812 No Longer Active Suze Nicole NURYSA Active TRUERESULT BLOOD GLUCOSE w/Device KIT use to test blood sugar tid dx: 250.00 BLOOD GLUCOSE MONITORING SUPPL 61179817656 No Longer Active Suze Nicole NURYSA Active ALIGN 4 MG ORAL CAPSULE 1 tid PROBIOTIC PRODUCT 20491880405 No Longer Active Shaun Sy MD Active CIPRO 500 MG ORAL TABLET 1 bid x 14 days start 09-28-13 CIPROFLOXACIN HCL 58536275514 No Longer Active Shaun Sy MD Active TRAMADOL HCL 50 MG ORAL TABLET 1-2 tablets every 6 hours as needed for pain TRAMADOL HCL 28509175739 Active Tu Landeros MD Active HYDROCODONE-ACETAMINOPHEN 5-325 MG ORAL TABLET 1 tab by mouth every 6 hours as needed for pain HYDROCODONE-ACETAMINOPHEN 98517439073 No Longer Active Tu Landeros MD Active OMEPRAZOLE 20 MG ORAL CAPSULE DELAYED RELEASE 1 po q a.m. OMEPRAZOLE 33318905164 Active Fab Morales DO Active GABAPENTIN 100 MG ORAL CAPSULE 1 po bid GABAPENTIN 72814237589 No Longer Active Tu Landeros MD Active B-12 100 MCG ORAL TABLET Take one by mouth daily CYANOCOBALAMIN 01128624947 No Longer Active Tu Landeros MD Active BACTRIM DS 800-160 MG ORAL TABLET 1 bid x 14 day start 09-28-13 SULFAMETHOXAZOLE-TRIMETHOPRIM 97157367113 No Longer Active Tu Landeros MD Active CARVEDILOL 12.5 MG ORAL TABLET 1 po BID CARVEDILOL 68622276704 Active Tu Landeros MD Active TRILIPIX 135 MG ORAL CAPSULE DELAYED RELEASE 1 q hs CHOLINE FENOFIBRATE 53023894037 Active Tu Landeros MD Active FENOFIBRATE 145 MG ORAL TABLET 1 po qd FENOFIBRATE 55514873861 No Longer Active JASPREET Perez Active OMEPRAZOLE 20 MG ORAL TABLET DELAYED RELEASE 1 PO 30 MIN BEFORE 1ST MEAL 2010 OMEPRAZOLE 39743247902 No Longer Active JASPREET Perez Active SIMVASTATIN 40 MG ORAL TABLET Take one by mouth daily SIMVASTATIN 76459156287 No Longer Active JASPREET Perez Active VENLAFAXINE HCL 75 MG ORAL TABLET 1 po BID VENLAFAXINE HCL 32629427017 No Longer Active JASPREET Perez Active CIPRO 500 MG ORAL TABLET 1 tablet by mouth twice daily CIPROFLOXACIN HCL 25776461883 No Longer Active Tu Landeros MD Active VENLAFAXINE HCL 37.5 MG ORAL TABLET 1 po BID VENLAFAXINE HCL 50784093740 No Longer Active Suzebianca Nicole RMA Active LAMISIL 250 MG ORAL TABLET 1 po qd TERBINAFINE HCL 80310569090 No Longer Active Tu Landeros MD Active LORTAB 5-500 MG ORAL TABLET 1/2 to 1 tablet by mouth every 4 hours as needed for pain HYDROCODONE-ACETAMINOPHEN 21193346333 No Longer Active uT Landeros MD Active HYDROCODONE-ACETAMINOPHEN 5-500 MG ORAL TABLET take one po Q 4-6 hours prn HYDROCODONE-ACETAMINOPHEN 34708449946 No Longer Active Tu Landeros MD Active BACTRIM DS 800-160 MG ORAL TABLET 1 po BID x 7 days SULFAMETHOXAZOLE-TRIMETHOPRIM 12253286201 No Longer Active Tu Landeros MD Active VENLAFAXINE HCL 75 MG ORAL TABLET 1 po BID VENLAFAXINE HCL 80375164981 No Longer Active Elvira Cervantes MD PhD Active TRAMADOL HCL 50 MG ORAL TABLET 1 tablets every 6 hours as needed for pain TRAMADOL HCL 43041393750 No Longer Active Tu Landeros MD Active ACCU-CHEK FASTCLIX LANCETS Use to check bloodsugar three times daily as needed LANCETS 75698712031 No Longer Active Tu Landeros MD Active ACCU-CHEDawson KEYONA PLUS IN VITRO STRIP Use for testing bloodsugars three times daily as needed GLUCOSE BLOOD 25247898116 No Longer Active Tu Landeros MD Active ACCU-CHEK KEYONA PLUS w/Device KIT Use for testing bloodsugars three times daily as needed BLOOD GLUCOSE MONITORING SUPPL 75656383117 No Longer Active Tu Landeros MD Active SPIRONOLACTONE 25 MG ORAL TABLET 0.5 tablet by mouth daily 09/09 SPIRONOLACTONE 78286447705 No Longer Active Tu Landeros MD Active ALPRAZOLAM 0.5 MG ORAL TABLET 1 tab every 6hrs as needed ALPRAZOLAM 73925252069 No Longer Active Tu Landeros MD Active AUGMENTIN 875-125 MG ORAL TABLET 1 tab by mouth twice daily with food AMOXICILLIN-POT CLAVULANATE 47359137938 No Longer Active Tu Landeros MD Active PREDNISONE 20 MG ORAL TABLET 2 tabs daily for 3 days, 1 tab daily for 3 days, 1/2 tab daily for 2 days PREDNISONE 77897101430 No Longer Active Tu Landeros MD Active XANAX 0.5 MG ORAL TABLET 1 tablet every 6 hrs prn ALPRAZOLAM 90985687978 No Longer Active Tu Landeros MD Active PREDNISONE 20 MG ORAL TABLET 2 tabs daily for 3 days, 1 tab daily for 3 days, 1/2 tab daily for 2 days PREDNISONE 28181942404 No Longer Active Tu Landeros MD Active TRIAMCINOLONE ACETONIDE 0.1 % EXTERNAL OINTMENT Apply to affected areas TID for up to 2 weeks TRIAMCINOLONE ACETONIDE 71284384462 No Longer Active Tu Landeros MD Active LORTAB 5-500 MG ORAL TABLET 1/2 to 1 tablet by mouth every 4 hours as needed for pain HYDROCODONE-ACETAMINOPHEN 23113022368 No Longer Active Tu Landeros MD Active MULTIVITAMINS TABS Take one by mouth daily MULTIPLE VITAMIN 81250728740 No Longer Active Tu Landeros MD Active MELATONIN 5 MG ORAL TABLET Take one by mouth daily MELATONIN 48372257395 No Longer Active Tu Landeros MD Active SOMA 350 MG ORAL TABLET 1 po q 6 hours prn spasm CARISOPRODOL 59446580519 No Longer Active Tu Landeros MD Active MECLIZINE HCL 25 MG ORAL TABLET CHEWABLE 1 four times a day as needed for dizziness MECLIZINE HCL 72440694843 No Longer Active Fab Morales DO Active ANGEL BREEZE 2 TEST IN VITRO DISK test tid prn GLUCOSE BLOOD 30483442106 No Longer Active Negra Scott RN Active REGLAN 10 MG ORAL TABLET 1 po TID PRN Nausea METOCLOPRAMIDE HCL 29713390281 No Longer Active Tu Landeros MD Active METFORMIN HCL 500 MG ORAL TABLET 1 PO BID METFORMIN HCL 18035388362 No Longer Active Tu Landeros MD Active AMBIEN 10 MG ORAL TABLET 1 tab by mouth at bedtime as needed for sleep 06/10 ZOLPIDEM TARTRATE 40460982833 No Longer Active Tu Landeros MD Active FLUOXETINE HCL 40 MG ORAL CAPSULE 1 po q day FLUOXETINE HCL 86393995767 No Longer Active Mayra Otis Active TRILIPIX 135 MG ORAL CAPSULE DELAYED RELEASE 1 po qd CHOLINE FENOFIBRATE 64065504206 No Longer Active Tu Landeros MD Active AMBIEN 10 MG ORAL TABLET 1 tab by mouth at bedtime as needed for sleep 06/10 AMBIEN 10 MG ORAL TABLET 227840 ZOLPIDEM TARTRATE Inactive METFORMIN HCL 500 MG ORAL TABLET 1 PO BID METFORMIN HCL 500 MG ORAL TABLET 202288 METFORMIN HCL Inactive REGLAN 10 MG ORAL TABLET 1 po TID PRN Nausea REGLAN 10 MG ORAL TABLET 706397 METOCLOPRAMIDE HCL Inactive MECLIZINE HCL 25 MG ORAL TABLET CHEWABLE 1 four times a day as needed for dizziness MECLIZINE HCL 25 MG ORAL TABLET CHEWABLE 755887 MECLIZINE HCL Inactive SOMA 350 MG ORAL TABLET 1 po q 6 hours prn spasm SOMA 350 MG ORAL TABLET 535618 CARISOPRODOL Inactive MELATONIN 5 MG ORAL TABLET Take one by mouth daily MELATONIN 5 MG ORAL TABLET 003991 MELATONIN Inactive MULTIVITAMINS TABS Take one by mouth daily MULTIVITAMINS TABS MULTIPLE VITAMIN Inactive LORTAB 5-500 MG ORAL TABLET 1/2 to 1 tablet by mouth every 4 hours as needed for pain LORTAB 5-500 MG ORAL TABLET 814947 HYDROCODONE-ACETAMINOPHEN Inactive XANAX 0.5 MG ORAL TABLET 1 tablet every 6 hrs prn XANAX 0.5 MG ORAL TABLET 375460 ALPRAZOLAM Inactive AUGMENTIN 875-125 MG ORAL TABLET 1 tab by mouth twice daily with food AUGMENTIN 875-125 MG ORAL TABLET 860705 AMOXICILLIN-POT CLAVULANATE Inactive ALPRAZOLAM 0.5 MG ORAL TABLET 1 tab every 6hrs as needed ALPRAZOLAM 0.5 MG ORAL TABLET 549869 ALPRAZOLAM Inactive SPIRONOLACTONE 25 MG ORAL TABLET 0.5 tablet by mouth daily 09/09 SPIRONOLACTONE 25 MG ORAL TABLET 761805 SPIRONOLACTONE Inactive ACCU-CHEK KEYONA PLUS w/Device KIT [...] times daily as needed ACCU-CHEK FASTCLIX LANCETS 32695398090 LANCETS Inactive TRAMADOL HCL 50 MG ORAL TABLET 1 tablets every 6 hours as needed for pain TRAMADOL HCL 50 MG ORAL TABLET 639394 TRAMADOL HCL Inactive VENLAFAXINE HCL 75 MG ORAL TABLET 1 po BID VENLAFAXINE HCL 75 MG ORAL TABLET 315703 VENLAFAXINE HCL Inactive HYDROCODONE-ACETAMINOPHEN 5-500 MG ORAL TABLET take one po Q 4-6 hours prn HYDROCODONE-ACETAMINOPHEN 5-500 MG ORAL TABLET 631611 HYDROCODONE-ACETAMINOPHEN Inactive LORTAB 5-500 MG ORAL TABLET 1/2 to 1 tablet by mouth every 4 hours as needed for pain LORTAB 5-500 MG ORAL TABLET 861339 HYDROCODONE-ACETAMINOPHEN Inactive LAMISIL 250 MG ORAL TABLET 1 po qd LAMISIL 250 MG ORAL TABLET 750717 TERBINAFINE HCL Inactive VENLAFAXINE HCL 37.5 MG ORAL TABLET 1 po BID VENLAFAXINE HCL 37.5 MG ORAL TABLET 601751 VENLAFAXINE HCL Inactive CIPRO 500 MG ORAL TABLET 1 tablet by mouth twice daily CIPRO 500 MG ORAL TABLET 985193 CIPROFLOXACIN HCL Inactive VENLAFAXINE HCL 75 MG ORAL TABLET 1 po BID VENLAFAXINE HCL 75 MG ORAL TABLET 651149 VENLAFAXINE HCL Inactive SIMVASTATIN 40 MG ORAL TABLET Take one by mouth daily SIMVASTATIN 40 MG ORAL TABLET 365334 SIMVASTATIN Inactive OMEPRAZOLE 20 MG ORAL TABLET DELAYED RELEASE 1 PO 30 MIN BEFORE 1ST MEAL 2010 OMEPRAZOLE 20 MG ORAL TABLET DELAYED RELEASE 089216 OMEPRAZOLE Inactive FENOFIBRATE 145 MG ORAL TABLET 1 po qd FENOFIBRATE 145 MG ORAL TABLET 327747 FENOFIBRATE Inactive BACTRIM DS 800-160 MG ORAL TABLET 1 bid x 14 day start 09-28-13 BACTRIM DS 800-160 MG ORAL TABLET 941060 SULFAMETHOXAZOLE- TRIMETHOPRIM Inactive B-12 100 MCG ORAL TABLET Take one by mouth daily B-12 100 MCG ORAL TABLET CYANOCOBALAMIN Inactive GABAPENTIN 100 MG ORAL CAPSULE 1 po bid GABAPENTIN 100 MG ORAL CAPSULE 996695 GABAPENTIN Inactive HYDROCODONE-ACETAMINOPHEN 5-325 MG ORAL TABLET 1 tab by mouth every 6 hours as needed for pain HYDROCODONE-ACETAMINOPHEN 5-325 MG ORAL TABLET 649932 HYDROCODONE-ACETAMINOPHEN Inactive CIPRO 500 MG ORAL TABLET 1 bid x 14 days start 09-28-13 CIPRO 500 MG ORAL TABLET 164303 CIPROFLOXACIN HCL Inactive ALIGN 4 MG ORAL [...] SODIUM 50 MG ORAL TABLET DELAYED RELEASE 942505 DICLOFENAC SODIUM Inactive PREDNISONE 20 MG ORAL TABLET 2 tablets once daily for 2 days, then 1 tablet once daily for 2 days PREDNISONE 20 MG ORAL TABLET 713340 PREDNISONE Inactive TRUEDRAW LANCING DEVICE Test twice a day dx 250.0 TRUEDRAW LANCING DEVICE LANCET DEVICES Inactive TRUERESULT BLOOD GLUCOSE w/Device KIT test blood sugar twice daily dx 250.00 TRUERESULT BLOOD GLUCOSE w/Device KIT BLOOD GLUCOSE MONITORING SUPPL Inactive FLONASE 50 MCG/ACT NASAL SUSPENSION 1 spray each nostril twice daily until bottle empty FLONASE 50 MCG/ACT NASAL SUSPENSION 5014648 FLUTICASONE PROPIONATE Inactive VENTOLIN HFA 108 (90 Base) MCG/ACT INHALATION AEROSOL SOLUTION 1-2 puffs every 4 hours if needed for cough/congestion VENTOLIN HFA 108 (90 Base) MCG/ACT INHALATION AEROSOL SOLUTION ALBUTEROL SULFATE Inactive REQUIP 2 MG ORAL TABLET Take one tablet at bedtime prn REQUIP 2 MG ORAL TABLET 972065 ROPINIROLE HCL Inactive SUPER B COMPLEX/VITAMIN C ORAL TABLET 1 qd SUPER B COMPLEX/VITAMIN C ORAL TABLET 81052391327 B COMPLEX-C Inactive TRUEDRAW LANCING DEVICE test blood sugar twice daily dx: 250.00 TRUEDRAW LANCING DEVICE LANCET DEVICES Inactive TRUETEST TEST IN VITRO STRIP test blood sugar twice daily. DX 250.0 TRUETEST TEST IN VITRO STRIP GLUCOSE BLOOD Inactive CYCLOBENZAPRINE HCL 10 MG ORAL TABLET 1 po TID PRN Muscle Spasm CYCLOBENZAPRINE HCL 10 MG ORAL TABLET 515479 CYCLOBENZAPRINE HCL Inactive DICLOFENAC SODIUM 50 MG ORAL TABLET DELAYED RELEASE 1 po BID PRN Pain DICLOFENAC SODIUM 50 MG ORAL TABLET DELAYED RELEASE 957224 DICLOFENAC SODIUM Inactive DICLOFENAC SODIUM 75 MG ORAL TABLET DELAYED RELEASE 1 po BID PRN Pain DICLOFENAC SODIUM 75 MG ORAL TABLET DELAYED RELEASE 080834 DICLOFENAC SODIUM Inactive TRIAMCINOLONE ACETONIDE 0.1 % EXTERNAL OINTMENT Apply to affected areas TID for up to 2 weeks TRIAMCINOLONE ACETONIDE 0.1 % EXTERNAL OINTMENT 9802147 TRIAMCINOLONE ACETONIDE Inactive PREDNISONE 20 MG ORAL TABLET 2 tabs daily for 3 days, 1 tab daily for 3 days, 1/2 tab daily for 2 days PREDNISONE 20 MG ORAL TABLET 872941 PREDNISONE Inactive PREDNISONE 20 MG ORAL TABLET 2 tabs daily for 3 days, 1 tab daily for 3 days, 1/2 tab daily for 2 days PREDNISONE 20 MG ORAL TABLET 644662 PREDNISONE Inactive BACTRIM DS 800-160 MG ORAL TABLET 1 po BID x 7 days BACTRIM DS 800-160 MG ORAL TABLET 835801 SULFAMETHOXAZOLE-TRIMETHOPRIM Inactive ZITHROMAX 250 MG ORAL TABLET 2 po today, then 1 po q days 2-5 ZITHROMAX 250 MG ORAL TABLET 500074 AZITHROMYCIN Inactive Advance Directives Directive Description Start Date DISCUSSED WITH PATIENT -- NO DECISION MADE Immunizations Vaccine Administration Date Value Standard Description Seasonal influenza vaccine, injectable, containing preservative, for > 3 years old (Afluria, FluLaval, Fluzone, Fluvirin, Fluarix, Agriflu(>=18 yo)) Fluzone (>3 yrs.) [KBR039] Influenza, seasonal, injectable influenza immunization (Flu Vax) has been administered 02/22/2012 influenza virus vaccine, unspecified formulation Seasonal influenza vaccine, injectable, containing preservative, for > 3 years old (Afluria, FluLaval, Fluzone, Fluvirin, Fluarix, Agriflu(>=18 yo)) Fluzone (>3 yrs.) [DFF170] Influenza, seasonal, injectable Vital Signs Date Name [...] ... - Chemistry sodium, serum 141 mmol/L 147-980 7162/01/16 carbon dioxide, venous blood 28.3 mmol/L 21.0-32.0 [...] 6.7 % 4.3-6.0 cholesterol, serum 106 mg/dL 131-026 0947/01/16 triglyceride, serum, fasting 173 mg/dL 30-200 HDL [...] A1c - Chemistry cholesterol, serum 135 mg/dL 710-601 8454/05/17 HDL cholesterol, serum 41 mg/dL > OR=46 triglyceride, serum, fasting 206 mg/dL <150 LDL cholesterol, serum 53 MG/DL (CALC) mg/dL <130 cholesterol/HDL ratio, serum 3.3 (calc) < OR=5.0 Lab Report: HGBA1C - Chemistry hemoglobin A1C, blood, as % of total hemoglobin 6.5 % 4.3-6.0 Encounters Code Encounter Date Provider Facility CPT-53135 Level 3 Est. Patient 10:13:19 AIRCRAFT MACHINIST HELPER Lesli Kellogg DRILL PRESS OPERATOR FOR METAL [facility] CPT-71484 Level 4 Est. Patient 13:42:02 AIRCRAFT MACHINIST HELPER Tu Landeros MD [facility] CPT-18227 Level 3 Est. Patient 14:20:36 CDT Tu Landeros MD [facility] CPT-71815 Level 4 Est. Patient 14:28:34 CDT Tu Landeros MD [facility] CPT-76288 Level 3 Est. Patient 13:33:09 CDT Tu Landeros MD [facility] CPT-57652 Level 4 Est. Patient 14:29:21 CDT Tu Landeros MD [facility] CPT-70645 Level 4 Est. Patient 09:08:17 AIRCRAFT MACHINIST HELPER Tu Landeros MD [facility] CPT-43211 Level 4 Est. Patient 14:40:19 CDT Tu Landeros MD [facility] CPT-71828 Level 4 Est. Patient 14:06:04 AIRCRAFT MACHINIST HELPER Tu Landeros MD [facility] CPT-25695 Level 3 Est. Patient 14:05:18 AIRCRAFT MACHINIST HELPER Tu Landeros MD [facility] CPT-95391 Level 3 Est. Patient 10:06:54 AIRCRAFT MACHINIST HELPER Miranda Farah DRILL PRESS OPERATOR FOR METAL [facility] CPT-51581 Level 4 Est. Patient 13:50:18 AIRCRAFT MACHINIST HELPER Tu Landeros MD [facility] CPT-58492 Level 3 Est. Patient 10:30:04 CDT Tu Landeros MD [facility] CPT-88859 Level 4 Est. Patient 11:03:38 CDT Tu Landeros MD [facility] CPT-92207 Level 3 Est. Patient 10:20:44 CDT Fab Morales DO [facility] CPT-14333 Level 4 Est. Patient 14:38:57 CDT Tu Landeros MD [facility] CPT-97621 Level 4 Est. Patient 14:27:39 AIRCRAFT MACHINIST HELPER Tu Landeros MD [facility] CPT-58862 Level 4 Est. Patient 09:45:25 CDT Tu Landeros MD [facility] CPT-65815 Level 4 Est. Patient 09:05:20 AIRCRAFT MACHINIST HELPER Tu Landeros MD [facility] CPT-77864 Level 4 Est. Patient 14:09:06 CDT Tu Landeros MD [facility] CPT-81728 Level 3 Est. Patient 13:36:54 CDT Tu Landeros MD [facility] CPT-64173 Level 3 Est. Patient 08:59:14 CDT Tu Lnaderos MD [facility] CPT-24046 Level 3 Est. Patient 13:48:35 CDT Fab Morales DO [facility] CPT-12907 Level 4 Est. Patient 10:05:48 CDT Tu Landeros MD [facility] CPT-58405 Level 3 Est. Patient 13:38:42 CDT Marek BANKS [facility] CPT-45115 Level 5 Est. Patient 08:08:39 CDT Jerrica FRANCIS [facility] CPT-17318 Level 4 Est. Patient 14:23:38 CDT Tu Landeros MD [facility] CPT-95110 Level 3 Est. Patient 11:44:04 CDT Tu Landeros MD [facility] CPT-05223 Level 3 Est. Patient 11:03:20 AIRCRAFT MACHINIST HELPER Tu Landeros MD [facility] CPT-57918 Level 3 Est. Patient 11:03:14 AIRCRAFT MACHINIST HELPER Tu Landeros MD [facility] CPT-03786 Level 3 Est. Patient 12:42:49 CDT Tu Landeros MD [facility] CPT-18963 Level 3 Est. Patient 11:52:06 CDT Tu Landeros MD [facility] CPT-58881 Level 3 Est. Patient 13:58:11 CDT Tu Landeros MD [facility] CPT-65955 Level 3 Est. Patient 17:50:07 CDT Fab Morales DO [facility] CPT-02573 Level 3 Est. Patient 12:06:29 CDT Elvira Cervantes MD PhD [facility] CPT-97784 Level 3 Est. Patient 15:50:32 CDT Tu Landeros MD [facility] CPT-63193 Level 4 Est. Patient 16:08:29 CDT Tu Landeros MD [facility] CPT-68455 Level 3 Est. Patient 16:04:19 CDT Tu Landeros MD [facility] CPT-12657 Level 3 Est. Patient 11:22:30 AIRCRAFT MACHINIST HELPER Tu Landeros MD [facility] CPT-45896 Level 4 Est. Patient 16:24:02 AIRCRAFT MACHINIST HELPER Tu Landeros MD [facility] CPT-81649 Level 3 Est. Patient 17:21:23 AIRCRAFT MACHINIST HELPER Tu Landeros MD [facility] Procedures Code Procedure Name Date Entry Date Standard Description CPT-05459 Shoulder, right, comp min 2V - XRAY USE ONLY 13:50:22 CDT CPT-G0009 Administration of Pneumococcal Vaccine 15:08:26 CDT CPT-92942 Prevnar 13 Intramuscular Suspension 15:08:26 CDT 10/08 CPT-G0439 Subsequent Annual Wellness Exam 14:29:22 CDT CPT-22568 Venipuncture Draw Fee 13:15:35 CDT CPT-93906 Magnesium - LAB USE ONLY 11:14:20 AIRCRAFT MACHINIST HELPER CPT-78458 Lipid - LAB USE ONLY 11:14:20 AIRCRAFT MACHINIST HELPER CPT-89882 HGBA1C - LAB USE ONLY 11:14:20 AIRCRAFT MACHINIST HELPER CPT-85628 CMP - LAB USE ONLY 11:14:19 AIRCRAFT MACHINIST HELPER CPT-24718 CBC - LAB USE ONLY 11:14:19 AIRCRAFT MACHINIST HELPER CPT-34643 Venipuncture Draw Fee 11:14:18 AIRCRAFT MACHINIST HELPER CPT-56563 First Vx - Ix admin for Medicare patients 16:46:52 CDT CPT-06790 Fluzone Preservative Free Intramuscular Suspension 16:46 :51 CDT CPT-55234 CBC - LAB USE ONLY 17:14:46 CDT CPT-31582 HGBA1C - LAB USE ONLY 17:14:46 CDT CPT-14916 Venipuncture Draw Fee 17:14:46 CDT CPT-G0438 Initial Annual Wellness Exam 14:13:04 CDT CPT-62366 Breathing Tx 10:06:54 AIRCRAFT MACHINIST HELPER CPT-21596 Postop F/U Visit 10:02:45 CDT CPT-LR Lesion Removal 09:02:56 CDT CPT-JTINJ Asp/Joint Injection 15:51:27 AIRCRAFT MACHINIST HELPER CPT-OV Office Visit 15:52:02 AIRCRAFT MACHINIST HELPER CPT-OV Office Visit 15:45:11 CDT CPT-000 Give Zostavax 14:09:06 CDT CPT-32052 Administration single or combination vaccine inc oral 15 :19:04 CDT CPT-96226 Zoster Vaccine (Zostavax) 15:19:04 CDT CPT-20950 Administration single or combination vaccine inc oral 20 :51:03 CDT CPT-38424 Influenza split virus > age 3 20:51:03 CDT CPT-44130 No Charge Offi Visit 14:52:03 CDT CPT-OV Office Visit 14:57:43 CDT CPT-OV Office Visit 15:22:32 CDT CPT-32586 Administration single or combination vaccine inc oral 11 :33:15 CDT CPT-70262 Influenza split virus > age 3 11:33:15 CDT
--- OUTSIDE RECORDS SUMMARY | 2018-04-25 17:12 | XMS REPORT | Clinical Summary ---
Author Author Admin, SACHI Organization [employer] Address Unknown Phone Unavailable Allergies, Adverse Reactions, [...] Edema Routine gynecological examination V72.31 Active Tu Lanedros MD Routine gynecological examination Upper respiratory infection, [...] MG TABS 1 po BID VENLAFAXINE HCL 04168877571 Active Tu Landeros MD Active GABAPENTIN 100 MG CAPS 1 po BID GABAPENTIN 68138974129 Active Tu Landeros MD Active REQUIP 2 MG TABS Take one tablet at bedtime prn ROPINIROLE HCL 70744904005 No Longer Active Tu Landeros MD Active VENTOLIN HFA 108 (90 BASE) MCG/ACT AERS 1-2 puffs every 4 hours if needed for cough/congestion ALBUTEROL SULFATE 38758218639 No Longer Active Ambiak Aden APRN Active ZITHROMAX 250 MG TAB 2 po today, then 1 po q days 2-5 AZITHROMYCIN 52884827455 No Longer Active Miranda Suresh APRN Active METFORMIN HCL 1000 MG TABS 1 tablet by mouth twice daily METFORMIN HCL 81908250812 Active Tu Landeros MD Active FLONASE 50 MCG/ACT SUSP 1 spray each nostril twice daily until bottle empty FLUTICASONE PROPIONATE 03844859765 No Longer Active Tu Landeros MD Active COLACE 100 MG CAP 1 po BID PRN Constipation DOCUSATE SODIUM 15164623650 Active Tu Landeros MD Active SIMVASTATIN 40 MG TABS 0.5 tab daily at bedtime SIMVASTATIN 85375383583 Active Tu Landeros MD Active TRUERESULT BLOOD GLUCOSE W/DEVICE KIT test blood sugar twice daily dx 250.00 BLOOD GLUCOSE MONITORING SUPPL 00877273847 No Longer Active Tu Landeros MD Active TRUEDRAW LANCING DEVICE MISC Test twice a day dx 250.0 LANCET DEVICES 40624268744 No Longer Active Tu Landeros MD Active PREDNISONE 20 MG TAB 2 tablets once daily for 2 days, then 1 tablet once daily for 2 days PREDNISONE 96882752139 No Longer Active Tu Landeros MD Active DICLOFENAC SODIUM 50 MG TBEC 1 tablet by mouth three times a day as needed DICLOFENAC SODIUM 64123787817 No Longer Active Fab Morales DO Active TRUEDRAW LANCING DEVICE MISC test blood sugar twice daily dx: 250.00 LANCET DEVICES 20745288181 Active Tu Landeros MD Active TRUETEST TEST INVITR STRP test blood sugar twice daily. DX 250.0 GLUCOSE BLOOD 21287207478 Active Tu Landeros MD Active EMBRACE BLOOD GLUCOSE TEST STRP test blood sugar twice daily DX 250.0 2014 GLUCOSE BLOOD 26798979241 No Longer Active Tu Landeros MD Active TRUETEST TEST STRP test blood sugar three times daily dx: 250.00 GLUCOSE BLOOD 08527078215 No Longer Active Suzebianca VOGEL Active TRUERESULT BLOOD GLUCOSE W/DEVICE KIT use to test blood sugar tid dx: 250.00 BLOOD GLUCOSE MONITORING SUPPL 28626195876 No Longer Active Suze Corey RMA Active ALIGN 4 MG CAPS 1 tid PROBIOTIC PRODUCT 60848764559 No Longer Active Shaun Sy MD Active CIPRO 500 MG TABS 1 bid x 14 days start 09-28-13 CIPROFLOXACIN HCL 71708863344 No Longer Active Shaun Sy MD Active TRAMADOL HCL 50 MG TABS 1-2 tablets every 6 hours as needed for pain TRAMADOL HCL 70241130579 Active Tu Landeros MD Active HYDROCODONE-ACETAMINOPHEN 5-325 MG TABS 1 tab by mouth every 6 hours as needed for pain HYDROCODONE-ACETAMINOPHEN 80926292753 No Longer Active Tu Landeros MD Active OMEPRAZOLE 20 MG CPDR 1 po q a.m. OMEPRAZOLE 75121242173 Active Tu Landeros MD Active GABAPENTIN 100 MG CAPS 1 po bid GABAPENTIN 62377073896 No Longer Active Tu Landeros MD Active B-12 100 MCG TABS Take one by mouth daily CYANOCOBALAMIN 72460623374 No Longer Active Tu Landeros MD Active BACTRIM DS 800-160 MG TABS 1 bid x 14 day start 09-28-13 SULFAMETHOXAZOLE-TRIMETHOPRIM 79540008903 No Longer Active Tu Landeros MD Active CARVEDILOL 12.5 MG TABS 1 po BID CARVEDILOL 66088920762 Active Tu Landeros MD Active SUPER B COMPLEX/VITAMIN C TABS 1 qd B COMPLEX-C 69477321583 Active JASPREET Perez Active TRILIPIX 135 MG CPDR 1 q hs CHOLINE FENOFIBRATE 80814516640 Active Tu Landeros MD Active FENOFIBRATE 145 MG TABS 1 po qd FENOFIBRATE 00016378864 No Longer Active JASPREET Perez Active OMEPRAZOLE 20 MG TBEC 1 PO 30 MIN BEFORE 1ST MEAL OMEPRAZOLE 40657293980 No Longer Active JASPREET Perez Active SIMVASTATIN 40 MG TABS Take one by mouth daily SIMVASTATIN 81510858813 No Longer Active JASPREET Perez Active VENLAFAXINE HCL 75 MG TABS 1 po BID VENLAFAXINE HCL 18233996206 No Longer Active JASPREET Perez Active CIPRO 500 MG TAB 1 tablet by mouth twice daily CIPROFLOXACIN HCL 67918489460 No Longer Active Tu Landeros MD Active VENLAFAXINE HCL 37.5 MG TABS 1 po BID VENLAFAXINE HCL 65459691782 No Longer Active Suze Nicole RMA Active LAMISIL 250 MG TAB 1 po qd TERBINAFINE HCL 28572009552 No Longer Active Tu Landeros MD Active LORTAB 5 5-500 MG TABS 1/2 to 1 tablet by mouth every 4 hours as needed for pain HYDROCODONE-ACETAMINOPHEN 99422498684 No Longer Active Tu Landeros MD Active ENALAPRIL MALEATE 20 MG TABS 1.5 po qd ENALAPRIL MALEATE 14961657850 Active Tu Landeros MD Active HYDROCODONE-ACETAMINOPHEN 5-500 MG TABS take one po Q 4-6 hours prn HYDROCODONE-ACETAMINOPHEN 36464905476 No Longer Active Tu Landeros MD Active BACTRIM DS 800-160 MG TABS 1 po BID x 7 days SULFAMETHOXAZOLE-TRIMETHOPRIM 13518156135 No Longer Active Tu Landeros MD Active VENLAFAXINE HCL 75 MG TABS 1 po BID VENLAFAXINE HCL 17419921492 No Longer Active Elvira Cervantes MD PhD Active TRAMADOL HCL 50 MG TABS 1 tablets every 6 hours as needed for pain TRAMADOL HCL 26201719355 No Longer Active uT Landeros MD Active ACCU-CHEK FASTCLIX LANCETS MISC Use to check bloodsugar three times daily as needed LANCETS 80799060141 No Longer Active Tu Landeros MD Active ACCU-CHEK KEYONA PLUS STRP Use for testing bloodsugars three times daily as needed GLUCOSE BLOOD 28630248920 No Longer Active Tu Landeros MD Active ACCU-CHEK KEYONA PLUS W/DEVICE KIT Use for testing bloodsugars three times daily as needed BLOOD GLUCOSE MONITORING SUPPL 84684346019 No Longer Active Tu Landeros MD Active SPIRONOLACTONE 25 MG TAB 0.5 tablet by mouth daily SPIRONOLACTONE 21758132904 No Longer Active Tu Landeros MD Active ALPRAZOLAM 0.5 MG TABS 1 tab every 6hrs as needed ALPRAZOLAM 40130360004 No Longer Active Tu Landeros MD Active AUGMENTIN 875-125 MG TAB 1 tab by mouth twice daily with food AMOXICILLIN-POT CLAVULANATE 27474652603 No Longer Active Tu Landeros MD Active PREDNISONE 20 MG TAB 2 tabs daily for 3 days, 1 tab daily for 3 days, 1/2 tab daily for 2 days PREDNISONE 88904342300 No Longer Active Tu Landeros MD Active XANAX 0.5 MG TABS 1 tablet every 6 hrs prn ALPRAZOLAM 99618495900 No Longer Active Tu Landeros MD Active PREDNISONE 20 MG TAB 2 tabs daily for 3 days, 1 tab daily for 3 days, 1/2 tab daily for 2 days PREDNISONE 39942916937 No Longer Active Tu Landeros MD Active TRIAMCINOLONE ACETONIDE 0.1 % OINT Apply to affected areas TID for up to 2 weeks TRIAMCINOLONE ACETONIDE 81022464831 No Longer Active Tu Landeros MD Active LORTAB 5 5-500 MG TABS 1/2 to 1 tablet by mouth every 4 hours as needed for pain HYDROCODONE-ACETAMINOPHEN 53824208842 No Longer Active Tu Landeros MD Active MULTIVITAMINS TABS Take one by mouth daily MULTIPLE VITAMIN 60405835831 No Longer Active Tu Landeros MD Active MELATONIN 5 MG TABS Take one by mouth daily MELATONIN 77914253103 No Longer Active Tu Landeros MD Active SOMA 350 MG TAB 1 po q 6 hours prn spasm CARISOPRODOL 65806954182 No Longer Active Tu Landeros MD Active MECLIZINE HCL 25 MG CHEW TAB 1 four times a day as needed for dizziness 08/05 MECLIZINE HCL 19930810228 No Longer Active Fab Morales DO Active ANGEL BREEZE 2 TEST DISK test tid prn GLUCOSE BLOOD 09141254155 No Longer Active Negra Scott RN Active REGLAN 10 MG TAB 1 po TID PRN [place] METOCLOPRAMIDE HCL 47812608911 No Longer Active Tu Landeros MD Active METFORMIN HCL 500 MG TABS 1 PO BID METFORMIN HCL 31635392690 No Longer Active Tu Landeros MD Active AMBIEN 10 MG TAB 1 tab by mouth at bedtime as needed for sleep ZOLPIDEM TARTRATE 03218791571 No Longer Active Tu Landeros MD Active FLUOXETINE HCL 40 MG CAPS 1 po q day FLUOXETINE HCL 64860998860 No Longer Active Mayra [place] Active FISH OIL 1000 MG CAPS Take one by mouth daily OMEGA-3 FATTY ACIDS 31218997822 Active Tu Landeros MD Active GLUCOSAMINE 500 MG TABS Take 2 tab po qd GLUCOSAMINE 15757231161 Active Tu Landeros MD Active TRILIPIX 135 MG CPDR 1 po qd CHOLINE FENOFIBRATE 01912323798 No Longer Active Tu Landeros MD Active ASPIRIN 81 MG CHEW TAB 1 tablet by mouth daily ASPIRIN 19761137457 Active Tu Landeros MD Active FUROSEMIDE 40 MG TAB 1 tablet by mouth daily FUROSEMIDE 48462692011 Active Tu Landeros MD Active KLOR-CON 10 10 MEQ CR-TABS TAKE 2 TABS DAILY POTASSIUM CHLORIDE 24427087808 Active Tu Landeros MD Active AMBIEN 10 MG TAB 1 tab by mouth at bedtime as needed for sleep AMBIEN 10 MG TAB 286132 ZOLPIDEM TARTRATE Inactive METFORMIN HCL 500 MG TABS 1 PO BID METFORMIN HCL 500 MG TABS 940497 METFORMIN HCL Inactive REGLAN 10 MG TAB 1 po TID PRN Nausea REGLAN 10 MG TAB 972832 METOCLOPRAMIDE HCL Inactive MECLIZINE HCL 25 MG CHEW TAB 1 four times a day as needed for dizziness 08/05 MECLIZINE HCL 25 MG CHEW TAB 534154 MECLIZINE HCL Inactive SOMA 350 MG TAB 1 po q 6 hours prn spasm SOMA 350 MG TAB 971914 CARISOPRODOL Inactive MELATONIN 5 MG TABS Take one by mouth daily MELATONIN 5 MG TABS 770311 MELATONIN Inactive MULTIVITAMINS TABS Take one by mouth daily MULTIVITAMINS TABS MULTIPLE VITAMIN Inactive LORTAB 5 5-500 MG TABS 1/2 to 1 tablet by mouth every 4 hours as needed for pain LORTAB 5 5-500 MG TABS HYDROCODONE- ACETAMINOPHEN Inactive XANAX 0.5 MG TABS 1 tablet every 6 hrs prn XANAX 0.5 MG TABS 625010 ALPRAZOLAM Inactive AUGMENTIN 875-125 MG TAB 1 tab by mouth twice daily with food AUGMENTIN 875-125 MG TAB 560915 AMOXICILLIN-POT CLAVULANATE Inactive ALPRAZOLAM 0.5 MG TABS 1 tab every 6hrs as needed ALPRAZOLAM 0.5 MG TABS 140572 ALPRAZOLAM Inactive SPIRONOLACTONE 25 MG TAB 0.5 tablet by mouth daily SPIRONOLACTONE 25 MG TAB 634273 SPIRONOLACTONE Inactive ACCU-CHEK KEYONA PLUS W/DEVICE KIT Use for testing bloodsugars three times daily as needed ACCU-CHEK KEYONA PLUS W/DEVICE KIT BLOOD GLUCOSE MONITORING SUPPL Inactive ACCU-CHEK KEYONA PLUS STRP Use for testing bloodsugars three times daily as needed ACCU-CHEK KEYONA PLUS STRP GLUCOSE BLOOD Inactive ACCU-CHEK FASTCLIX LANCETS MISC Use to check bloodsugar three times daily as needed ACCU-CHEK FASTCLIX LANCETS MISC 11188990590 [facility] Inactive TRAMADOL HCL 50 MG TABS 1 tablets every 6 hours as needed for pain TRAMADOL HCL 50 MG TABS 125716 TRAMADOL HCL Inactive VENLAFAXINE HCL 75 MG TABS 1 po BID VENLAFAXINE HCL 75 MG TABS 040854 VENLAFAXINE HCL Inactive HYDROCODONE-ACETAMINOPHEN 5-500 MG TABS take one po Q 4-6 hours prn HYDROCODONE-ACETAMINOPHEN 5-500 MG TABS HYDROCODONE- ACETAMINOPHEN Inactive LORTAB 5 5-500 MG TABS 1/2 to 1 tablet by mouth every 4 hours as needed for pain LORTAB 5 5-500 MG TABS HYDROCODONE- ACETAMINOPHEN Inactive LAMISIL 250 MG TAB 1 po qd LAMISIL 250 MG TAB 769998 TERBINAFINE HCL Inactive VENLAFAXINE HCL 37.5 MG TABS 1 po BID VENLAFAXINE HCL 37.5 MG TABS 781994 VENLAFAXINE HCL Inactive CIPRO 500 MG TAB 1 tablet by mouth twice daily CIPRO 500 MG TAB 943422 CIPROFLOXACIN HCL Inactive VENLAFAXINE HCL 75 MG TABS 1 po BID VENLAFAXINE HCL 75 MG TABS 949961 VENLAFAXINE HCL Inactive SIMVASTATIN 40 MG TABS Take one by mouth daily SIMVASTATIN 40 MG TABS 280732 SIMVASTATIN Inactive OMEPRAZOLE 20 MG TBEC 1 PO 30 MIN BEFORE 1ST MEAL OMEPRAZOLE 20 MG TBEC 423932 OMEPRAZOLE Inactive FENOFIBRATE 145 MG TABS 1 po qd FENOFIBRATE 145 MG TABS 266759 FENOFIBRATE Inactive BACTRIM DS 800-160 MG TABS 1 bid x 14 day start 09-28-13 BACTRIM DS 800-160 MG TABS 813780 SULFAMETHOXAZOLE-TRIMETHOPRIM Inactive B-12 100 MCG TABS Take one by mouth daily B-12 100 MCG TABS CYANOCOBALAMIN Inactive GABAPENTIN 100 MG CAPS 1 po bid GABAPENTIN 100 MG CAPS 657483 GABAPENTIN Inactive HYDROCODONE-ACETAMINOPHEN 5-325 MG TABS 1 tab by mouth every 6 hours as needed for pain HYDROCODONE-ACETAMINOPHEN 5-325 MG TABS 084529 HYDROCODONE-ACETAMINOPHEN Inactive CIPRO 500 MG TABS 1 bid x 14 days start 814 CIPRO 500 MG TABS 844626 CIPROFLOXACIN HCL Inactive ALIGN 4 MG CAPS [...] as needed DICLOFENAC SODIUM 50 MG TBEC 696642 DICLOFENAC SODIUM Inactive PREDNISONE 20 MG TAB 2 tablets once daily for 2 days, then 1 tablet once daily for 2 days PREDNISONE 20 MG TAB 906893 PREDNISONE Inactive TRUEDRAW LANCING DEVICE MISC Test [...] at bedtime prn REQUIP 2 MG TABS 345756 ROPINIROLE HCL Inactive TRIAMCINOLONE ACETONIDE 0.1 % OINT Apply to affected areas TID for up to 2 weeks TRIAMCINOLONE ACETONIDE 0.1 % OINT 9561752 TRIAMCINOLONE ACETONIDE Inactive PREDNISONE 20 MG TAB 2 tabs daily for 3 days, 1 tab daily for 3 days, 1/2 tab daily for 2 days PREDNISONE 20 MG TAB 991286 PREDNISONE Inactive PREDNISONE 20 MG TAB 2 tabs daily for 3 days, 1 tab daily for 3 days, 1/2 tab daily for 2 days PREDNISONE 20 MG TAB 312975 PREDNISONE Inactive BACTRIM DS 800-160 MG TABS 1 po BID x 7 days BACTRIM DS 800-160 MG TABS 504692 SULFAMETHOXAZOLE-TRIMETHOPRIM Inactive ZITHROMAX 250 MG TAB 2 po today, then 1 po q days 2-5 ZITHROMAX 250 MG TAB 7322387 AZITHROMYCIN Inactive Advance Directives Directive Description Start Date DISCUSSED WITH PATIENT -- NO DECISION MADE Immunizations Vaccine Administration Date Value Standard Description Seasonal influenza vaccine, injectable, containing preservative, for > 3 years old (Afluria, FluLaval, Fluzone, Fluvirin, Fluarix, Agriflu(>=18 yo)) Fluzone (>3 yrs.) [[id number]] Influenza, seasonal, injectable influenza immunization (Flu Vax) has been administered 02/22/2012 influenza virus vaccine, unspecified formulation Seasonal influenza vaccine, injectable, containing preservative, for > 3 years old (Afluria, FluLaval, Fluzone, Fluvirin, Fluarix, Agriflu(>=18 yo)) Fluzone (>3 yrs.) [[id number]] Influenza, seasonal, injectable Vital Signs Date Name [...] 7.4 % 4.3-6.0 sodium, serum 140 mmol/L 998-071 3289/09/07 potassium, serum 4.3 mmol/L 3.5-5.2 chloride, serum 104 mmol/L 98-107 carbon dioxide, venous blood 27.7 mmol/L 21.0-32.0 blood glucose 156 mg/dL 65-110 calcium, serum 9.3 mg/dL 8.5-10.1 urea nitrogen, blood 23 mg/dL 7-18 creatinine, serum 1.21 mg/dL 0.55-1.30 Lab Report: Lipid Panel, Comp. Metabolic Panel - Chemistry cholesterol, serum 124 mg/dL 235-048 4573/01/12 triglyceride, serum, fasting 135 mg/dL 30-200 HDL cholesterol, serum 41 mg/dL 32-96 LDL cholesterol, serum 56 mg/dL 0-130 sodium, serum 140 mmol/L 353-522 0499/01/12 carbon dioxide, venous blood 27.7 mmol/L 21.0-32.0 potassium, serum 4.5 mmol/L 3.5-5.2 chloride, serum 104 mmol/L 98-107 blood glucose 139 mg/dL 65-110 urea nitrogen, blood 16 mg/dL 7-18 alanine aminotransferase (SGPT), serum 32 U/L 12-78 aspartate aminotransferase (SGOT), serum 25 U/L 15-37 calcium, serum 9.1 mg/dL 8.5-10.1 bilirubin, serum, total 0.50 mg/dL 0.00-1.00 Encounters Code Encounter Date Provider Facility CPT-60474 Level 4 Est. Patient 14:40:19 CDT Tu Landeros MD [facility] CPT-41548 Level 4 Est. Patient 14:06:04 INTERNAL SPECIALIST Tu Landeros MD [facility] CPT-67445 Level 3 Est. Patient 14:05:18 INTERNAL SPECIALIST Tu Landeros MD [facility] CPT-88877 Level 3 Est. Patient 10:06:54 INTERNAL SPECIALIST Miranda Suresh APRN [facility] CPT-29709 Level 4 Est. Patient 13:50:18 INTERNAL SPECIALIST Tu Landeros MD [facility] CPT-28062 Level 3 Est. Patient 10:30:04 CDT Tu Landeros MD [facility] CPT-61149 Level 4 Est. Patient 11:03:38 CDT Tu Landeros MD [facility] CPT-94794 Level 3 Est. Patient 10:20:44 CDT Fab Morales DO [facility] CPT-06902 Level 4 Est. Patient 14:38:57 CDT Tu Landeros MD [facility] CPT-33534 Level 4 Est. Patient 14:27:39 INTERNAL SPECIALIST uT Landeros MD [facility] CPT-31990 Level 4 Est. Patient 09:45:25 CDT Tu Landeros MD [facility] CPT-32278 Level 4 Est. Patient 09:05:20 INTERNAL SPECIALIST Tu Landeros MD [facility] CPT-46637 Level 4 Est. Patient 14:09:06 CDT Tu Landeros MD [facility] CPT-66230 Level 3 Est. Patient 13:36:54 CDT Tu Landeros MD [facility] CPT-27044 Level 3 Est. Patient 08:59:14 CDT Tu Landeros MD [facility] CPT-35390 Level 3 Est. Patient 13:48:35 CDT Fab Morales DO [facility] CPT-91613 Level 4 Est. Patient 10:05:48 CDT Tu Landeros MD [facility] CPT-51292 Level 3 Est. Patient 13:38:42 CDT Marek BANKS [facility] CPT-90329 Level 5 Est. Patient 08:08:39 CDT Jerrica FRANCIS [facility] CPT-96199 Level 4 Est. Patient 14:23:38 CDT Tu Landeros MD [facility] CPT-34088 Level 3 Est. Patient 11:44:04 CDT Tu Landeros MD [facility] CPT-80402 Level 3 Est. Patient 11:03:20 INTERNAL SPECIALIST Tu Landeros MD [facility] CPT-68799 Level 3 Est. Patient 11:03:14 INTERNAL SPECIALIST Tu Landeros MD [facility] CPT-63967 Level 3 Est. Patient 12:42:49 CDT Tu Landeros MD [facility] CPT-51310 Level 3 Est. Patient 11:52:06 CDT Tu Landeros MD [facility] CPT-93887 Level 3 Est. Patient 13:58:11 CDT Tu Landeros MD [facility] CPT-75952 Level 3 Est. Patient 17:50:07 CDT Fab Morales DO [facility] CPT-26681 Level 3 Est. Patient 12:06:29 CDT Elvira Cervantes MD PhD [facility] CPT-90126 Level 3 Est. Patient 15:50:32 CDT Tu Landeros MD [facility] CPT-27303 Level 4 Est. Patient 16:08:29 CDT Tu Landeros MD [facility] CPT-76152 Level 3 Est. Patient 16:04:19 CDT Tu Landeros MD [facility] CPT-42503 Level 3 Est. Patient 11:22:30 INTERNAL SPECIALIST Tu Landeros MD [facility] CPT-38230 Level 4 Est. Patient 16:24:02 INTERNAL SPECIALIST Tu Landeros MD [facility] CPT-77254 Level 3 Est. Patient 17:21:23 INTERNAL SPECIALIST Tu Landeros MD [facility] Procedures Code Procedure Name Date Entry Date Standard Description CPT-46574 First Vx - Ix admin for Medicare patients 16:46:52 CDT CPT-54036 Fluzone Preservative Free Intramuscular Suspension 16:46 :51 CDT CPT-63586 CBC - LAB USE ONLY 17:14:46 CDT CPT-56055 HGBA1C - LAB USE ONLY 17:14:46 CDT CPT-54777 Venipuncture Draw Fee 17:14:46 CDT CPT-G0438 Initial Annual Wellness Exam 14:13:04 CDT CPT-22460 Breathing Tx 10:06:54 INTERNAL SPECIALIST CPT-93800 Postop F/U Visit 10:02:45 CDT CPT-LR Lesion Removal 09:02:56 CDT CPT-JTINJ Asp/Joint Injection 15:51:27 INTERNAL SPECIALIST CPT-OV Office Visit 15:52:02 INTERNAL SPECIALIST CPT-OV Office Visit 15:45:11 CDT CPT-000 Give Zostavax 14:09:06 CDT CPT-38958 Administration single or combination vaccine inc oral 15 :19:04 CDT CPT-73285 Zoster Vaccine (Zostavax) 15:19:04 CDT CPT-56606 Administration single or combination vaccine inc oral 20 :51:03 CDT CPT-68935 Influenza split virus > age 3 20:51:03 CDT CPT-65685 No Charge Offi Visit 14:52:03 CDT CPT-OV Office Visit 14:57:43 CDT CPT-OV Office Visit 15:22:32 CDT CPT-65559 Administration single or combination vaccine inc oral 11 :33:15 CDT CPT-73147 Influenza split virus > age 3 11:33:15 CDT
--- OUTSIDE RECORDS SUMMARY | 2018-04-25 17:16 | XMS REPORT | Clinical Summary ---
Author Author Admin, SACHI Organization [employer] Address Unknown Phone Unavailable Allergies, Adverse Reactions, [...] not further specified 369.20 Active Ambika Markie [employer]PER[employer]OR Moderate or severe vision impairment, both [...] hours if needed for cough/congestion ALBUTEROL SULFATE 19183581023 No Longer Active Ambika Aden APRN Active ZITHROMAX 250 MG TAB 2 po today, then 1 po q days 2-5 AZITHROMYCIN 44333246333 No Longer Active Miranda Suresh APRN Active METFORMIN HCL 1000 MG TABS 1 tablet by mouth twice daily METFORMIN HCL 00261355171 Active Tu Landeros MD Active FLONASE 50 MCG/ACT SUSP 1 spray each nostril twice daily until bottle empty FLUTICASONE PROPIONATE 62587345458 No Longer Active Tu Landeros MD Active COLACE 100 MG CAP 1 po BID PRN Constipation DOCUSATE SODIUM 51440075921 Active Tu Landeros MD Active SIMVASTATIN 40 MG TABS 0.5 tab daily at bedtime SIMVASTATIN 03272993179 Active Tu Landeros MD Active TRUERESULT BLOOD GLUCOSE W/DEVICE KIT test blood sugar twice daily dx 250.00 BLOOD GLUCOSE MONITORING SUPPL 35488851863 No Longer Active Tu Landeros MD Active TRUEDRAW LANCING DEVICE MISC Test twice a day dx 250.0 LANCET DEVICES 47956179612 No Longer Active Tu Landeros MD Active PREDNISONE 20 MG TAB 2 tablets once daily for 2 days, then 1 tablet once daily for 2 days PREDNISONE 42059641815 No Longer Active Tu Landeros MD Active DICLOFENAC SODIUM 50 MG TBEC 1 tablet by mouth three times a day as needed DICLOFENAC SODIUM 95851193434 No Longer Active Fab Morales DO Active TRUEDRAW LANCING DEVICE MISC test blood sugar twice daily dx: 250.00 LANCET DEVICES 18686344609 Active Tu Landeros MD Active TRUETEST TEST INVITR STRP test blood sugar twice daily. DX 250.0 GLUCOSE BLOOD 48347291244 Active Tu Landeros MD Active EMBRACE BLOOD GLUCOSE TEST STRP test blood sugar twice daily DX 250.0 2014 GLUCOSE BLOOD 23952248783 No Longer Active Tu Landeros MD Active TRUETEST TEST STRP test blood sugar three times daily dx: 250.00 GLUCOSE BLOOD 01540555798 No Longer Active Suzebianca Nicole RMMahendra Active TRUERESULT BLOOD GLUCOSE W/DEVICE KIT use to test blood sugar tid dx: 250.00 BLOOD GLUCOSE MONITORING SUPPL 56506442861 No Longer Active Suze Corey RMA Active ALIGN 4 MG CAPS 1 tid PROBIOTIC PRODUCT 77249411959 No Longer Active Shaun Sy MD Active CIPRO 500 MG TABS 1 bid x 14 days start 09-28-13 CIPROFLOXACIN HCL 01750339332 No Longer Active Shaun Sy MD Active TRAMADOL HCL 50 MG TABS 1-2 tablets every 6 hours as needed for pain TRAMADOL HCL 14243485506 Active Tu Landeros MD Active HYDROCODONE-ACETAMINOPHEN 5-325 MG TABS 1 tab by mouth every 6 hours as needed for pain HYDROCODONE-ACETAMINOPHEN 43339715225 No Longer Active Tu Landeros MD Active OMEPRAZOLE 20 MG CPDR 1 po q a.m. OMEPRAZOLE 70356694966 Active Tu Landeros MD Active GABAPENTIN 100 MG CAPS 1 po bid GABAPENTIN 54800826342 No Longer Active Tu Landeros MD Active B-12 100 MCG TABS Take one by mouth daily CYANOCOBALAMIN 87039550324 No Longer Active Tu Landeros MD Active GABAPENTIN 100 MG CAPS by mouth twice a day GABAPENTIN 49758250456 Active Tu Landeros MD Active BACTRIM DS 800-160 MG TABS 1 bid x 14 day start 8-14 SULFAMETHOXAZOLE-TRIMETHOPRIM 69855663490 No Longer Active Tu Landeros MD Active CARVEDILOL 12.5 MG TABS 1 po BID CARVEDILOL 72318982543 Active Tu Landeros MD Active SUPER B COMPLEX/VITAMIN C TABS 1 qd B COMPLEX-C 93021130758 Active JASPREET Perez Active TRILIPIX 135 MG CPDR 1 q hs CHOLINE FENOFIBRATE 84394987169 Active Tu Landeros MD Active FENOFIBRATE 145 MG TABS 1 po qd FENOFIBRATE 85491424655 No Longer Active JASPREET Perez Active OMEPRAZOLE 20 MG TBEC 1 PO 30 MIN BEFORE 1ST MEAL OMEPRAZOLE 51094911030 No Longer Active JASPREET Perez Active SIMVASTATIN 40 MG TABS Take one by mouth daily SIMVASTATIN 42298932156 No Longer Active JASPREET Perez Active VENLAFAXINE HCL 37.5 MG TABS 1 bid VENLAFAXINE HCL 07886317043 Active Tu Landeros MD Active VENLAFAXINE HCL 75 MG TABS 1 po BID VENLAFAXINE HCL 32101276019 No Longer Active JASPREET Perez Active CIPRO 500 MG TAB 1 tablet by mouth twice daily CIPROFLOXACIN HCL 70248932200 No Longer Active Tu Landeros MD Active VENLAFAXINE HCL 37.5 MG TABS 1 po BID VENLAFAXINE HCL 57663015797 No Longer Active Suze Corey RMA Active LAMISIL 250 MG TAB 1 po qd TERBINAFINE HCL 46626114606 No Longer Active Tu Landeros MD Active LORTAB 5 5-500 MG TABS 1/2 to 1 tablet by mouth every 4 hours as needed for pain HYDROCODONE-ACETAMINOPHEN 70610618086 No Longer Active Tu Landeros MD Active ENALAPRIL MALEATE 20 MG TABS 1.5 po qd ENALAPRIL MALEATE 66653407071 Active Tu Landeros MD Active HYDROCODONE-ACETAMINOPHEN 5-500 MG TABS take one po Q 4-6 hours prn HYDROCODONE-ACETAMINOPHEN 77796761758 No Longer Active Tu Landeros MD Active BACTRIM DS 800-160 MG TABS 1 po BID x 7 days SULFAMETHOXAZOLE-TRIMETHOPRIM 08528643525 No Longer Active Tu Landeros MD Active VENLAFAXINE HCL 75 MG TABS 1 po BID VENLAFAXINE HCL 40063188021 No Longer Active Elvira Cervantes MD PhD Active TRAMADOL HCL 50 MG TABS 1 tablets every 6 hours as needed for pain TRAMADOL HCL 19182407510 No Longer Active Tu Landeros MD Active ACCU-CHEK FASTCLIX LANCETS MISC Use to check bloodsugar three times daily as needed LANCETS 63411596986 No Longer Active Tu Landeros MD Active ACCU-CHEK KEYONA PLUS STRP Use for testing bloodsugars three times daily as needed GLUCOSE BLOOD 07353262567 No Longer Active Tu Landeros MD Active ACCU-CHEK KEYONA PLUS W/DEVICE KIT Use for testing bloodsugars three times daily as needed BLOOD GLUCOSE MONITORING SUPPL 79020690687 No Longer Active Tu Landeros MD Active SPIRONOLACTONE 25 MG TAB 0.5 tablet by mouth daily SPIRONOLACTONE 00456853247 No Longer Active Tu Landeros MD Active ALPRAZOLAM 0.5 MG TABS 1 tab every 6hrs as needed ALPRAZOLAM 62351188239 No Longer Active Tu Landeros MD Active AUGMENTIN 875-125 MG TAB 1 tab by mouth twice daily with food AMOXICILLIN-POT CLAVULANATE 37126189945 No Longer Active Tu Landeros MD Active PREDNISONE 20 MG TAB 2 tabs daily for 3 days, 1 tab daily for 3 days, 1/2 tab daily for 2 days PREDNISONE 59763393466 No Longer Active Tu Landeros MD Active XANAX 0.5 MG TABS 1 tablet every 6 hrs prn ALPRAZOLAM 03878689297 No Longer Active Tu Landeros MD Active PREDNISONE 20 MG TAB 2 tabs daily for 3 days, 1 tab daily for 3 days, 1/2 tab daily for 2 days PREDNISONE 35867909477 No Longer Active Tu Landeros MD Active TRIAMCINOLONE ACETONIDE 0.1 % OINT Apply to affected areas TID for up to 2 weeks TRIAMCINOLONE ACETONIDE 72383839018 No Longer Active Tu Landeros MD Active LORTAB 5 5-500 MG TABS 1/2 to 1 tablet by mouth every 4 hours as needed for pain HYDROCODONE-ACETAMINOPHEN 98760536662 No Longer Active Tu Landeros MD Active MULTIVITAMINS TABS Take one by mouth daily MULTIPLE VITAMIN 13876489320 No Longer Active Tu Landeros MD Active MELATONIN 5 MG TABS Take one by mouth daily MELATONIN 52617309398 No Longer Active Tu Landeros MD Active SOMA 350 MG TAB 1 po q 6 hours prn spasm CARISOPRODOL 43949234404 No Longer Active Tu Landeros MD Active MECLIZINE HCL 25 MG CHEW TAB 1 four times a day as needed for dizziness 08/05 MECLIZINE HCL 66042867475 No Longer Active Fab Morales DO Active ANGEL BREEZE 2 TEST DISK test tid prn GLUCOSE BLOOD 78390491384 No Longer Active Negra Scott RN Active REGLAN 10 MG TAB 1 po TID PRN [place] METOCLOPRAMIDE HCL 49200937647 No Longer Active Tu Landeros MD Active METFORMIN HCL 500 MG TABS 1 PO BID METFORMIN HCL 25104104795 No Longer Active Tu Landeros MD Active AMBIEN 10 MG TAB 1 tab by mouth at bedtime as needed for sleep ZOLPIDEM TARTRATE 13529247855 No Longer Active Tu Landeros MD Active FLUOXETINE HCL 40 MG CAPS 1 po q day FLUOXETINE HCL 08077986270 No Longer Active Mayra Terry Active FISH OIL 1000 MG CAPS Take one by mouth daily OMEGA-3 FATTY ACIDS 64980818552 Active Tu Landeros MD Active GLUCOSAMINE 500 MG TABS Take 2 tab po qd GLUCOSAMINE 63590025905 Active Tu Landeros MD Active TRILIPIX 135 MG CPDR 1 po qd CHOLINE FENOFIBRATE 04954357862 No Longer Active Tu Landeros MD Active ASPIRIN 81 MG CHEW TAB 1 tablet by mouth daily ASPIRIN 79703729352 Active Tu Landeros MD Active FUROSEMIDE 40 MG TAB 1 tablet by mouth daily FUROSEMIDE 33807060944 Active Tu Landeros MD Active REQUIP 2 MG TABS Take one tablet at bedtime prn ROPINIROLE HCL 56279446327 Active Tu Landeros MD Active KLOR-CON 10 10 MEQ CR-TABS TAKE 2 TABS DAILY POTASSIUM CHLORIDE 09866718808 Active Tu Landeros MD Active AMBIEN 10 MG TAB 1 tab by mouth at bedtime as needed for sleep AMBIEN 10 MG TAB 521969 ZOLPIDEM TARTRATE Inactive METFORMIN HCL 500 MG TABS 1 PO BID METFORMIN HCL 500 MG TABS 315603 METFORMIN HCL Inactive REGLAN 10 MG TAB 1 po TID PRN [place]ause[place] REGLAN 10 MG TAB 709733 METOCLOPRAMIDE HCL Inactive MECLIZINE HCL 25 MG CHEW TAB 1 four times a day as needed for dizziness 08/05 MECLIZINE HCL 25 MG CHEW TAB 757225 MECLIZINE HCL Inactive SOMA 350 MG TAB 1 po q 6 hours prn spasm SOMA 350 MG TAB 180584 CARISOPRODOL Inactive MELATONIN 5 MG TABS Take one by mouth daily MELATONIN 5 MG TABS 311239 MELATONIN Inactive MULTIVITAMINS TABS Take one by mouth daily MULTIVITAMINS TABS MULTIPLE VITAMIN Inactive LORTAB 5 5-500 MG TABS 1/2 to 1 tablet by mouth every 4 hours as needed for pain LORTAB 5 5-500 MG TABS HYDROCODONE- ACETAMINOPHEN Inactive XANAX 0.5 MG TABS 1 tablet every 6 hrs prn XANAX 0.5 MG TABS 042487 ALPRAZOLAM Inactive AUGMENTIN 875-125 MG TAB 1 tab by mouth twice daily with food AUGMENTIN 875-125 MG TAB 826284 AMOXICILLIN-POT CLAVULANATE Inactive ALPRAZOLAM 0.5 MG TABS 1 tab every 6hrs as needed ALPRAZOLAM 0.5 MG TABS 376619 ALPRAZOLAM Inactive SPIRONOLACTONE 25 MG TAB 0.5 tablet by mouth daily SPIRONOLACTONE 25 MG TAB 349310 SPIRONOLACTONE Inactive ACCU-CHEK KEYONA PLUS W/DEVICE KIT Use for testing bloodsugars three times daily as needed ACCU-CHEK KEYONA PLUS W/DEVICE KIT BLOOD GLUCOSE MONITORING SUPPL Inactive ACCU-CHEK KEYONA PLUS STRP Use for testing bloodsugars three times daily as needed ACCU-CHEK KEYONA PLUS STRP GLUCOSE BLOOD Inactive ACCU-CHEK FASTCLIX LANCETS MISC Use to check bloodsugar three times daily as needed ACCU-CHEK FASTCLIX LANCETS MISC 19919614511 LANCETS Inactive TRAMADOL HCL 50 MG TABS 1 tablets every 6 hours as needed for pain TRAMADOL HCL 50 MG TABS 816236 TRAMADOL HCL Inactive VENLAFAXINE HCL 75 MG TABS 1 po BID VENLAFAXINE HCL 75 MG TABS 366365 VENLAFAXINE HCL Inactive HYDROCODONE-ACETAMINOPHEN 5-500 MG TABS take one po Q 4-6 hours prn HYDROCODONE-ACETAMINOPHEN 5-500 MG TABS HYDROCODONE- ACETAMINOPHEN Inactive LORTAB 5 5-500 MG TABS 1/2 to 1 tablet by mouth every 4 hours as needed for pain LORTAB 5 5-500 MG TABS HYDROCODONE- ACETAMINOPHEN Inactive LAMISIL 250 MG TAB 1 po qd LAMISIL 250 MG TAB 670321 TERBINAFINE HCL Inactive VENLAFAXINE HCL 37.5 MG TABS 1 po BID VENLAFAXINE HCL 37.5 MG TABS 811313 VENLAFAXINE HCL Inactive CIPRO 500 MG TAB 1 tablet by mouth twice daily CIPRO 500 MG TAB 122903 CIPROFLOXACIN HCL Inactive VENLAFAXINE HCL 75 MG TABS 1 po BID VENLAFAXINE HCL 75 MG TABS 077129 VENLAFAXINE HCL Inactive SIMVASTATIN 40 MG TABS Take one by mouth daily SIMVASTATIN 40 MG TABS 163710 SIMVASTATIN Inactive OMEPRAZOLE 20 MG TBEC 1 PO 30 MIN BEFORE 1ST MEAL OMEPRAZOLE 20 MG TBEC 727617 OMEPRAZOLE Inactive FENOFIBRATE 145 MG TABS 1 po qd FENOFIBRATE 145 MG TABS 167606 FENOFIBRATE Inactive BACTRIM DS 800-160 MG TABS 1 bid x 14 day start 09-28-13 BACTRIM DS 800-160 MG TABS 309232 SULFAMETHOXAZOLE-TRIMETHOPRIM Inactive B-12 100 MCG TABS Take one by mouth daily B-12 100 MCG TABS CYANOCOBALAMIN Inactive GABAPENTIN 100 MG CAPS 1 po bid GABAPENTIN 100 MG CAPS 874957 GABAPENTIN Inactive HYDROCODONE-ACETAMINOPHEN 5-325 MG TABS 1 tab by mouth every 6 hours as needed for pain HYDROCODONE-ACETAMINOPHEN 5-325 MG TABS 117056 HYDROCODONE-ACETAMINOPHEN Inactive CIPRO 500 MG TABS 1 bid x 14 days start 09-28-13 CIPRO 500 MG TABS 152168 CIPROFLOXACIN HCL Inactive ALIGN 4 MG CAPS [...] as needed DICLOFENAC SODIUM 50 MG TBEC 106428 DICLOFENAC SODIUM Inactive PREDNISONE 20 MG TAB 2 tablets once daily for 2 days, then 1 tablet once daily for 2 days PREDNISONE 20 MG TAB 216972 PREDNISONE Inactive TRUEDRAW LANCING DEVICE MISC Test twice a day dx 250.0 TRUEDRAW LANCING DEVICE MISC LANCET DEVICES Inactive TRUERESULT BLOOD GLUCOSE W/DEVICE KIT test blood sugar twice daily dx 250.00 TRUERESULT BLOOD GLUCOSE W/DEVICE KIT BLOOD GLUCOSE MONITORING SUPPL Inactive FLONASE 50 MCG/ACT SUSP 1 spray each nostril twice daily until bottle empty FLONASE 50 MCG/ACT SUSP 482875 FLUTICASONE PROPIONATE Inactive VENTOLIN HFA 108 (90 BASE) MCG/ACT AERS 1-2 puffs every 4 hours if needed for cough/congestion VENTOLIN HFA 108 (90 BASE) MCG/ACT AERS ALBUTEROL SULFATE Inactive TRIAMCINOLONE ACETONIDE 0.1 % OINT Apply to affected areas TID for up to 2 weeks TRIAMCINOLONE ACETONIDE 0.1 % OINT 7689763 TRIAMCINOLONE ACETONIDE Inactive PREDNISONE 20 MG TAB 2 tabs daily for 3 days, 1 tab daily for 3 days, 1/2 tab daily for 2 days PREDNISONE 20 MG TAB 144046 PREDNISONE Inactive PREDNISONE 20 MG TAB 2 tabs daily for 3 days, 1 tab daily for 3 days, 1/2 tab daily for 2 days PREDNISONE 20 MG TAB 767875 PREDNISONE Inactive BACTRIM DS 800-160 MG TABS 1 po BID x 7 days BACTRIM DS 800-160 MG TABS 177611 SULFAMETHOXAZOLE-TRIMETHOPRIM Inactive ZITHROMAX 250 MG TAB 2 po today, then 1 po q days 2-5 ZITHROMAX 250 MG TAB 6669372 AZITHROMYCIN Inactive Advance Directives Directive Description Start Date DISCUSSED WITH PATIENT -- NO DECISION MADE Immunizations Vaccine Administration Date Value Standard Description Seasonal influenza vaccine, injectable, containing preservative, for > 3 years old (Afluria, FluLaval, Fluzone, Fluvirin, Fluarix, Agriflu(>=18 yo)) Fluzone (>3 yrs.) [[id number]] Influenza, seasonal, injectable influenza immunization (Flu Vax) has been administered 02/22/2012 influenza virus vaccine, unspecified formulation Seasonal influenza vaccine, injectable, containing preservative, for > 3 years old (Afluria, FluLaval, Fluzone, Fluvirin, Fluarix, Agriflu(>=18 yo)) Fluzone (>3 yrs.) [[id number]] Influenza, seasonal, injectable Vital Signs Date Name [...] MICROALBUMIN - Chemistry sodium, serum 142 mmol/L 533-851 2963/10/08 potassium, serum 4.5 mmol/L 3.5-5.2 chloride, serum [...] 0.30 mg/dL 0.00-1.00 cholesterol, serum 111 mg/dL 606-491 0924/07/28 triglyceride, serum, fasting 177 mg/dL 30-200 HDL [...] Panel - Chemistry cholesterol, serum 124 mg/dL 260-154 5850/01/12 triglyceride, serum, fasting 135 mg/dL 30-200 HDL cholesterol, serum 41 mg/dL 32-96 LDL cholesterol, serum 56 mg/dL 0-130 sodium, serum 140 mmol/L 823-724 3620/01/12 carbon dioxide, venous blood 27.7 mmol/L 21.0-32.0 potassium, serum 4.5 mmol/L 3.5-5.2 chloride, serum 104 mmol/L 98-107 blood glucose 139 mg/dL 65-110 urea nitrogen, blood 16 mg/dL 7-18 alanine aminotransferase (SGPT), serum 32 U/L 12-78 aspartate aminotransferase (SGOT), serum 25 U/L 15-37 calcium, serum 9.1 mg/dL 8.5-10.1 bilirubin, serum, total 0.50 mg/dL 0.00-1.00 Encounters Code Encounter Date Provider Facility CPT-29616 Level 4 Est. Patient 14:06:04 SITE ACQUISITION MANAGER Tu Landeros MD [facility] CPT-18111 Level 3 Est. Patient 14:05:18 SITE ACQUISITION MANAGER Tu Landeros MD [facility] CPT-51623 Level 3 Est. Patient 10:06:54 SITE ACQUISITION MANAGER Miranda Suresh APRN [facility] CPT-95027 Level 4 Est. Patient 13:50:18 SITE ACQUISITION MANAGER Tu Landeros MD [facility] CPT-22514 Level 3 Est. Patient 10:30:04 CDT Tu Landeros MD [facility] CPT-26312 Level 4 Est. Patient 11:03:38 CDT Tu Landeros MD [facility] CPT-64980 Level 3 Est. Patient 10:20:44 CDT Fab Morales DO [facility] CPT-48839 Level 4 Est. Patient 14:38:57 CDT Tu Landeros MD [facility] CPT-82481 Level 4 Est. Patient 14:27:39 SITE ACQUISITION MANAGER Tu Landeros MD [facility] CPT-54639 Level 4 Est. Patient 09:45:25 CDT Tu Landeros MD [facility] CPT-88204 Level 4 Est. Patient 09:05:20 SITE ACQUISITION MANAGER Tu Landeros MD [facility] CPT-07730 Level 4 Est. Patient 14:09:06 CDT Tu Landeros MD [facility] CPT-26974 Level 3 Est. Patient 13:36:54 CDT Tu Landeros MD [facility] CPT-26111 Level 3 Est. Patient 08:59:14 CDT Tu Landeros MD [facility] CPT-97900 Level 3 Est. Patient 13:48:35 CDT Fab Morales DO [facility] CPT-80152 Level 4 Est. Patient 10:05:48 CDT Tu Landeros MD [facility] CPT-52260 Level 3 Est. Patient 13:38:42 CDT Marek BANKS [facility] CPT-52306 Level 5 Est. Patient 08:08:39 CDT Jerrica FRANCIS [facility] CPT-15951 Level 4 Est. Patient 14:23:38 CDT Tu Landeros MD [facility] CPT-57966 Level 3 Est. Patient 11:44:04 CDT Tu Landeros MD [facility] CPT-92725 Level 3 Est. Patient 11:03:20 SITE ACQUISITION MANAGER Tu Landeros MD [facility] CPT-68591 Level 3 Est. Patient 11:03:14 SITE ACQUISITION MANAGER Tu Landeros MD [facility] CPT-80373 Level 3 Est. Patient 12:42:49 CDT Tu Landeros MD [facility] CPT-06040 Level 3 Est. Patient 11:52:06 CDT Tu Landeros MD [facility] CPT-49323 Level 3 Est. Patient 13:58:11 CDT Tu Landeros MD [facility] CPT-20496 Level 3 Est. Patient 17:50:07 CDT Fab Morales DO [facility] CPT-92039 Level 3 Est. Patient 12:06:29 CDT Elvira Cervantes MD, PhD [facility] CPT-19545 Level 3 Est. Patient 15:50:32 CDT Tu Landeros MD [facility] CPT-34266 Level 4 Est. Patient 16:08:29 CDT Tu Landeros MD [facility] CPT-55482 Level 3 Est. Patient 16:04:19 CDT Tu Landeros MD [facility] CPT-40683 Level 3 Est. Patient 11:22:30 SITE ACQUISITION MANAGER Tu Landeros MD [facility] CPT-71014 Level 4 Est. Patient 16:24:02 SITE ACQUISITION MANAGER Tu Landeros MD [facility] CPT-24612 Level 3 Est. Patient 17:21:23 SITE ACQUISITION MANAGER Tu Landeros MD [facility] Procedures Code Procedure Name Date Entry Date Standard Description CPT-G0438 Initial Annual Wellness Exam 14:13:04 CDT CPT-57159 Breathing Tx 10:06:54 SITE ACQUISITION MANAGER CPT-10492 Postop F/U Visit 10:02:45 CDT CPT-LR Lesion Removal 09:02:56 CDT CPT-JTINJ Asp/Joint Injection 15:51:27 SITE ACQUISITION MANAGER CPT-OV Office Visit 15:52:02 SITE ACQUISITION MANAGER CPT-OV Office Visit 15:45:11 CDT CPT-000 Give Zostavax 14:09:06 CDT CPT-06505 Administration single or combination vaccine inc oral 15 :19:04 CDT CPT-09063 Zoster Vaccine (Zostavax) 15:19:04 CDT CPT-36998 Administration single or combination vaccine inc oral 20 :51:03 CDT CPT-48170 Influenza split virus > age 3 20:51:03 CDT CPT-77477 No Charge Offi Visit 14:52:03 CDT CPT-OV Office Visit 14:57:43 CDT CPT-OV Office Visit 15:22:32 CDT CPT-22129 Administration single or combination vaccine inc oral 11 :33:15 CDT CPT-13423 Influenza split virus > age 3 11:33:15 CDT
--- OUTSIDE RECORDS SUMMARY | 2018-04-25 17:21 | XMS REPORT | Clinical Summary ---
Author Author Admin, SACHI Organization [facility] Address Unknown Phone Unavailable Allergies, Adverse Reactions, [...] not further specified 369.20 Active Ambika Markie [employer] Moderate or severe vision impairment, both eyes, [...] hours if needed for cough/congestion ALBUTEROL SULFATE 15719674566 No Longer Active Ambika Aden APRN Active ZITHROMAX 250 MG TAB 2 po today, then 1 po q days 2-5 AZITHROMYCIN 27786686438 No Longer Active Miranda Suresh APRN Active METFORMIN HCL 1000 MG TABS 1 tablet by mouth twice daily METFORMIN HCL 74769751906 Active Tu Landeros MD Active FLONASE 50 MCG/ACT SUSP 1 spray each nostril twice daily until bottle empty FLUTICASONE PROPIONATE 62883852448 No Longer Active Tu Landeros MD Active COLACE 100 MG CAP 1 po BID PRN Constipation DOCUSATE SODIUM 19672452551 Active Tu Landeros MD Active SIMVASTATIN 40 MG TABS 0.5 tab daily at bedtime SIMVASTATIN 40877969366 Active Tu Landeros MD Active TRUERESULT BLOOD GLUCOSE W/DEVICE KIT test blood sugar twice daily dx 250.00 BLOOD GLUCOSE MONITORING SUPPL 87944782963 No Longer Active Tu Landeros MD Active TRUEDRAW LANCING DEVICE MISC Test twice a day dx 250.0 LANCET DEVICES 88377431692 No Longer Active Tu Landeros MD Active PREDNISONE 20 MG TAB 2 tablets once daily for 2 days, then 1 tablet once daily for 2 days PREDNISONE 16118887079 No Longer Active Tu Landeros MD Active DICLOFENAC SODIUM 50 MG TBEC 1 tablet by mouth three times a day as needed DICLOFENAC SODIUM 28547957881 No Longer Active Fab Morales DO Active TRUEDRAW LANCING DEVICE MISC test blood sugar twice daily dx: 250.00 LANCET DEVICES 93386296257 Active Tu Landeros MD Active TRUETEST TEST INVITR STRP test blood sugar twice daily. DX 250.0 GLUCOSE BLOOD 31377018316 Active Tu Landeros MD Active EMBRACE BLOOD GLUCOSE TEST STRP test blood sugar twice daily DX 250.0 2014 GLUCOSE BLOOD 91446497035 No Longer Active Tu Landeros MD Active TRUETEST TEST STRP test blood sugar three times daily dx: 250.00 GLUCOSE BLOOD 80624409648 No Longer Active Suzebianca VOGEL Active TRUERESULT BLOOD GLUCOSE W/DEVICE KIT use to test blood sugar tid dx: 250.00 BLOOD GLUCOSE MONITORING SUPPL 68214518810 No Longer Active Suze Corey RMA Active ALIGN 4 MG CAPS 1 tid PROBIOTIC PRODUCT 91902167256 No Longer Active Shaun Sy MD Active CIPRO 500 MG TABS 1 bid x 14 days start 09-28-13 CIPROFLOXACIN HCL 11357579536 No Longer Active Shaun Sy MD Active TRAMADOL HCL 50 MG TABS 1-2 tablets every 6 hours as needed for pain TRAMADOL HCL 45947313682 Active Tu Landeros MD Active HYDROCODONE-ACETAMINOPHEN 5-325 MG TABS 1 tab by mouth every 6 hours as needed for pain HYDROCODONE-ACETAMINOPHEN 72251764404 No Longer Active Tu Landeros MD Active OMEPRAZOLE 20 MG CPDR 1 po q a.m. OMEPRAZOLE 55253100582 Active Tu Landeros MD Active GABAPENTIN 100 MG CAPS 1 po bid GABAPENTIN 66981650575 No Longer Active Tu Landeros MD Active B-12 100 MCG TABS Take one by mouth daily CYANOCOBALAMIN 28171120853 No Longer Active Tu Landeros MD Active GABAPENTIN 100 MG CAPS by mouth twice a day GABAPENTIN 60118498182 Active Tiffanie Doyle Active BACTRIM DS 800-160 MG TABS 1 bid x 14 day start 8-14 SULFAMETHOXAZOLE-TRIMETHOPRIM 37718143614 No Longer Active Tu Landeros MD Active CARVEDILOL 12.5 MG TABS 1 po BID CARVEDILOL 49849991912 Active Tu Landeros MD Active SUPER B COMPLEX/VITAMIN C TABS 1 qd B COMPLEX-C 77551295630 Active JASPREET Perez Active TRILIPIX 135 MG CPDR 1 q hs CHOLINE FENOFIBRATE 78941421441 Active Tu Landeros MD Active FENOFIBRATE 145 MG TABS 1 po qd FENOFIBRATE 92007849919 No Longer Active JASPREET Perez Active OMEPRAZOLE 20 MG TBEC 1 PO 30 MIN BEFORE 1ST MEAL OMEPRAZOLE 65572199041 No Longer Active JASPREET Perez Active SIMVASTATIN 40 MG TABS Take one by mouth daily SIMVASTATIN 40213509547 No Longer Active JASPREET Perez Active VENLAFAXINE HCL 37.5 MG TABS 1 bid VENLAFAXINE HCL 59388386999 Active Tu Landeros MD Active VENLAFAXINE HCL 75 MG TABS 1 po BID VENLAFAXINE HCL 49108041347 No Longer Active JASPREET Perez Active CIPRO 500 MG TAB 1 tablet by mouth twice daily CIPROFLOXACIN HCL 74716120016 No Longer Active Tu Landeros MD Active VENLAFAXINE HCL 37.5 MG TABS 1 po BID VENLAFAXINE HCL 90308645425 No Longer Active Suze Corey RMA Active LAMISIL 250 MG TAB 1 po qd TERBINAFINE HCL 64557250337 No Longer Active Tu Landeros MD Active LORTAB 5 5-500 MG TABS 1/2 to 1 tablet by mouth every 4 hours as needed for pain HYDROCODONE-ACETAMINOPHEN 00960605320 No Longer Active Tu Landeros MD Active ENALAPRIL MALEATE 20 MG TABS 1.5 po qd ENALAPRIL MALEATE 92898754359 Active Tu Landeros MD Active HYDROCODONE-ACETAMINOPHEN 5-500 MG TABS take one po Q 4-6 hours prn HYDROCODONE-ACETAMINOPHEN 75926670985 No Longer Active Tu Landeros MD Active BACTRIM DS 800-160 MG TABS 1 po BID x 7 days SULFAMETHOXAZOLE-TRIMETHOPRIM 22995444590 No Longer Active Tu Landeros MD Active VENLAFAXINE HCL 75 MG TABS 1 po BID VENLAFAXINE HCL 51674387080 No Longer Active Elvira Cervantes MD PhD Active TRAMADOL HCL 50 MG TABS 1 tablets every 6 hours as needed for pain TRAMADOL HCL 60979941551 No Longer Active Tu Landeros MD Active ACCU-CHEK FASTCLIX LANCETS MISC Use to check bloodsugar three times daily as needed LANCETS 57382266388 No Longer Active Tu Landeros MD Active ACCU-CHEK KEYONA PLUS STRP Use for testing bloodsugars three times daily as needed GLUCOSE BLOOD 92172068606 No Longer Active Tu Landeros MD Active ACCU-CHEK KEYONA PLUS W/DEVICE KIT Use for testing bloodsugars three times daily as needed BLOOD GLUCOSE MONITORING SUPPL 81866882091 No Longer Active Tu Landeros MD Active SPIRONOLACTONE 25 MG TAB 0.5 tablet by mouth daily SPIRONOLACTONE 19829336239 No Longer Active Tu Landeros MD Active ALPRAZOLAM 0.5 MG TABS 1 tab every 6hrs as needed ALPRAZOLAM 32200011467 No Longer Active Tu Landeros MD Active AUGMENTIN 875-125 MG TAB 1 tab by mouth twice daily with food AMOXICILLIN-POT CLAVULANATE 15301117345 No Longer Active Tu Landeros MD Active PREDNISONE 20 MG TAB 2 tabs daily for 3 days, 1 tab daily for 3 days, 1/2 tab daily for 2 days PREDNISONE 08741803410 No Longer Active Tu Landeros MD Active XANAX 0.5 MG TABS 1 tablet every 6 hrs prn ALPRAZOLAM 29131255726 No Longer Active Tu Landeros MD Active PREDNISONE 20 MG TAB 2 tabs daily for 3 days, 1 tab daily for 3 days, 1/2 tab daily for 2 days PREDNISONE 81420294009 No Longer Active Tu Landeros MD Active TRIAMCINOLONE ACETONIDE 0.1 % OINT Apply to affected areas TID for up to 2 weeks TRIAMCINOLONE ACETONIDE 44573287672 No Longer Active Tu Landeros MD Active LORTAB 5 5-500 MG TABS 1/2 to 1 tablet by mouth every 4 hours as needed for pain HYDROCODONE-ACETAMINOPHEN 84530748200 No Longer Active Tu Landeros MD Active MULTIVITAMINS TABS Take one by mouth daily MULTIPLE VITAMIN 73978578923 No Longer Active Tu Landeros MD Active MELATONIN 5 MG TABS Take one by mouth daily MELATONIN 63412602462 No Longer Active Tu Landeros MD Active SOMA 350 MG TAB 1 po q 6 hours prn spasm CARISOPRODOL 90280458143 No Longer Active Tu Landeros MD Active MECLIZINE HCL 25 MG CHEW TAB 1 four times a day as needed for dizziness 08/05 MECLIZINE HCL 30711874644 No Longer Active Fab Morales DO Active ANGEL BREEZE 2 TEST DISK test tid prn GLUCOSE BLOOD 57763837424 No Longer Active Negra Scott RN Active REGLAN 10 MG TAB 1 po TID PRN Nausea METOCLOPRAMIDE HCL 23230469908 No Longer Active Tu Landeros MD Active METFORMIN HCL 500 MG TABS 1 PO BID METFORMIN HCL 93548826152 No Longer Active Tu Landeros MD Active AMBIEN 10 MG TAB 1 tab by mouth at bedtime as needed for sleep ZOLPIDEM TARTRATE 56166023666 No Longer Active Tu Landeros MD Active FLUOXETINE HCL 40 MG CAPS 1 po q day FLUOXETINE HCL 39135468366 No Longer Active Mayra Terry Active FISH OIL 1000 MG CAPS Take one by mouth daily OMEGA-3 FATTY ACIDS 92556795731 Active Tu Landeros MD Active GLUCOSAMINE 500 MG TABS Take 2 tab po qd GLUCOSAMINE 97603769583 Active Tu Landeros MD Active TRILIPIX 135 MG CPDR 1 po qd CHOLINE FENOFIBRATE 14995711605 No Longer Active Tu Landeros MD Active ASPIRIN 81 MG CHEW TAB 1 tablet by mouth daily ASPIRIN 08934607517 Active Tu Landeros MD Active FUROSEMIDE 40 MG TAB 1 tablet by mouth daily FUROSEMIDE 72901745127 Active Tu Landeros MD Active REQUIP 2 MG TABS Take one tablet at bedtime prn ROPINIROLE HCL 86577910505 Active Tu Landeros MD Active KLOR-CON 10 10 MEQ CR-TABS TAKE 2 TABS DAILY POTASSIUM CHLORIDE 05154962639 Active Tu Landeros MD Active AMBIEN 10 MG TAB 1 tab by mouth at bedtime as needed for sleep AMBIEN 10 MG TAB 064161 ZOLPIDEM TARTRATE Inactive METFORMIN HCL 500 MG TABS 1 PO BID METFORMIN HCL 500 MG TABS 085836 METFORMIN HCL Inactive REGLAN 10 MG TAB 1 po TID PRN Nausea REGLAN 10 MG TAB 132725 METOCLOPRAMIDE HCL Inactive MECLIZINE HCL 25 MG CHEW TAB 1 four times a day as needed for dizziness 08/05 MECLIZINE HCL 25 MG CHEW TAB 192527 MECLIZINE HCL Inactive SOMA 350 MG TAB 1 po q 6 hours prn spasm SOMA 350 MG TAB 070322 CARISOPRODOL Inactive MELATONIN 5 MG TABS Take one by mouth daily MELATONIN 5 MG TABS 196641 MELATONIN Inactive MULTIVITAMINS TABS Take one by mouth daily MULTIVITAMINS TABS MULTIPLE VITAMIN Inactive LORTAB 5 5-500 MG TABS 1/2 to 1 tablet by mouth every 4 hours as needed for pain LORTAB 5 5-500 MG TABS HYDROCODONE- ACETAMINOPHEN Inactive XANAX 0.5 MG TABS 1 tablet every 6 hrs prn XANAX 0.5 MG TABS 661734 ALPRAZOLAM Inactive AUGMENTIN 875-125 MG TAB 1 tab by mouth twice daily with food AUGMENTIN 875-125 MG TAB 611482 AMOXICILLIN-POT CLAVULANATE Inactive ALPRAZOLAM 0.5 MG TABS 1 tab every 6hrs as needed ALPRAZOLAM 0.5 MG TABS 506971 ALPRAZOLAM Inactive SPIRONOLACTONE 25 MG TAB 0.5 tablet by mouth daily SPIRONOLACTONE 25 MG TAB 086587 SPIRONOLACTONE Inactive ACCU-CHEK KEYONA PLUS W/DEVICE KIT Use for testing bloodsugars three times daily as needed ACCU-CHEK KEYONA PLUS W/DEVICE KIT BLOOD GLUCOSE MONITORING SUPPL Inactive ACCU-CHEK KEYONA PLUS STRP Use for testing bloodsugars three times daily as needed ACCU-CHEK KEYONA PLUS STRP GLUCOSE BLOOD Inactive ACCU-CHEK FASTCLIX LANCETS MISC Use to check bloodsugar three times daily as needed ACCU-CHEK FASTCLIX LANCETS MISC 03142156995 LANCETS Inactive TRAMADOL HCL 50 MG TABS 1 tablets every 6 hours as needed for pain TRAMADOL HCL 50 MG TABS 755553 TRAMADOL HCL Inactive VENLAFAXINE HCL 75 MG TABS 1 po BID VENLAFAXINE HCL 75 MG TABS 699855 VENLAFAXINE HCL Inactive HYDROCODONE-ACETAMINOPHEN 5-500 MG TABS take one po Q 4-6 hours prn HYDROCODONE-ACETAMINOPHEN 5-500 MG TABS HYDROCODONE- ACETAMINOPHEN Inactive LORTAB 5 5-500 MG TABS 1/2 to 1 tablet by mouth every 4 hours as needed for pain LORTAB 5 5-500 MG TABS HYDROCODONE- ACETAMINOPHEN Inactive LAMISIL 250 MG TAB 1 po qd LAMISIL 250 MG TAB 300262 TERBINAFINE HCL Inactive VENLAFAXINE HCL 37.5 MG TABS 1 po BID VENLAFAXINE HCL 37.5 MG TABS 575069 VENLAFAXINE HCL Inactive CIPRO 500 MG TAB 1 tablet by mouth twice daily CIPRO 500 MG TAB 606931 CIPROFLOXACIN HCL Inactive VENLAFAXINE HCL 75 MG TABS 1 po BID VENLAFAXINE HCL 75 MG TABS 266299 VENLAFAXINE HCL Inactive SIMVASTATIN 40 MG TABS Take one by mouth daily SIMVASTATIN 40 MG TABS 435268 SIMVASTATIN Inactive OMEPRAZOLE 20 MG TBEC 1 PO 30 MIN BEFORE 1ST MEAL OMEPRAZOLE 20 MG TBEC 059300 OMEPRAZOLE Inactive FENOFIBRATE 145 MG TABS 1 po qd FENOFIBRATE 145 MG TABS 472825 FENOFIBRATE Inactive BACTRIM DS 800-160 MG TABS 1 bid x 14 day start 09-28-13 BACTRIM DS 800-160 MG TABS 509875 SULFAMETHOXAZOLE-TRIMETHOPRIM Inactive B-12 100 MCG TABS Take one by mouth daily B-12 100 MCG TABS CYANOCOBALAMIN Inactive GABAPENTIN 100 MG CAPS 1 po bid GABAPENTIN 100 MG CAPS 022695 GABAPENTIN Inactive HYDROCODONE-ACETAMINOPHEN 5-325 MG TABS 1 tab by mouth every 6 hours as needed for pain HYDROCODONE-ACETAMINOPHEN 5-325 MG TABS 960555 HYDROCODONE-ACETAMINOPHEN Inactive CIPRO 500 MG TABS 1 bid x 14 days start 09-28-13 CIPRO 500 MG TABS 651671 CIPROFLOXACIN HCL Inactive ALIGN 4 MG CAPS [...] as needed DICLOFENAC SODIUM 50 MG TBEC 484713 DICLOFENAC SODIUM Inactive PREDNISONE 20 MG TAB 2 tablets once daily for 2 days, then 1 tablet once daily for 2 days PREDNISONE 20 MG TAB 260573 PREDNISONE Inactive TRUEDRAW LANCING DEVICE MISC Test [...] 2 weeks TRIAMCINOLONE ACETONIDE 0.1 % OINT 9286853 TRIAMCINOLONE ACETONIDE Inactive PREDNISONE 20 MG TAB 2 tabs daily for 3 days, 1 tab daily for 3 days, 1/2 tab daily for 2 days PREDNISONE 20 MG TAB 440556 PREDNISONE Inactive PREDNISONE 20 MG TAB 2 tabs daily for 3 days, 1 tab daily for 3 days, 1/2 tab daily for 2 days PREDNISONE 20 MG TAB 769080 PREDNISONE Inactive BACTRIM DS 800-160 MG TABS 1 po BID x 7 days BACTRIM DS 800-160 MG TABS 871844 SULFAMETHOXAZOLE-TRIMETHOPRIM Inactive ZITHROMAX 250 MG TAB 2 po today, then 1 po q days 2-5 ZITHROMAX 250 MG TAB 5768999 AZITHROMYCIN Inactive Advance Directives Directive Description Start Date DISCUSSED WITH PATIENT -- NO DECISION MADE Immunizations Vaccine Administration Date Value Standard Description Seasonal influenza vaccine, injectable, containing preservative, for > 3 years old (Afluria, FluLaval, Fluzone, Fluvirin, Fluarix, Agriflu(>=18 yo)) Fluzone (>3 yrs.) [[id number]] Influenza, seasonal, injectable influenza immunization (Flu Vax) has been administered 02/22/2012 influenza virus vaccine, unspecified formulation Seasonal influenza vaccine, injectable, containing preservative, for > 3 years old (Afluria, FluLaval, Fluzone, Fluvirin, Fluarix, Agriflu(>=18 yo)) Fluzone (>3 yrs.) [[id number]] Influenza, seasonal, injectable Vital Signs Date Name [...] mg/g mg/g{creat} 0-29 sodium, serum 142 mmol/L 155-495 1321/10/08 potassium, serum 4.5 mmol/L 3.5-5.2 chloride, serum [...] 7.4 % 4.3-6.0 sodium, serum 140 mmol/L 338-425 6916/09/07 potassium, serum 4.3 mmol/L 3.5-5.2 chloride, serum 104 mmol/L 98-107 carbon dioxide, venous blood 27.7 mmol/L 21.0-32.0 blood glucose 156 mg/dL 65-110 calcium, serum 9.3 mg/dL 8.5-10.1 urea nitrogen, blood 23 mg/dL - creatinine, serum 1.21 mg/dL 0.55-1.30 hemoglobin A1C, blood, as % of total hemoglobin 7.7 % 4.3-6.0 Lab Report: Lipid Panel, Comp. Metabolic Panel - Chemistry cholesterol, serum 124 mg/dL 844-206 9163/01/12 triglyceride, serum, fasting 135 mg/dL 30-200 HDL cholesterol, serum 41 mg/dL 32-96 LDL cholesterol, serum 56 mg/dL 0-130 sodium, serum 140 mmol/L 249-408 3159/01/12 carbon dioxide, venous blood 27.7 mmol/L 21.0-32.0 potassium, serum 4.5 mmol/L 3.5-5.2 chloride, serum 104 mmol/L 98-107 blood glucose 139 mg/dL 65-110 urea nitrogen, blood 16 mg/dL 7-18 alanine aminotransferase (SGPT), serum 32 U/L 12-78 aspartate aminotransferase (SGOT), serum 25 U/L 15-37 calcium, serum 9.1 mg/dL 8.5-10.1 bilirubin, serum, total 0.50 mg/dL 0.00-1.00 Encounters Code Encounter Date Provider Facility CPT-32769 Level 4 Est. Patient 14:06:04 [employer]HOUSE [employer]PERATIONS MANAGER Tu Landeros MD [facility] CPT-00551 Level 3 Est. Patient 14:05:18 WAREHOUSE OPERATIONS MANAGER Tu Landeros MD [facility] CPT-60806 Level 3 Est. Patient 10:06:54 WAREHOUSE OPERATIONS MANAGER Miranda Suresh APRN [facility] CPT-56262 Level 4 Est. Patient 13:50:18 WAREHOUSE OPERATIONS MANAGER Tu Landeros MD [facility] CPT-48928 Level 3 Est. Patient 10:30:04 CDT Tu Landeros MD [facility] CPT-34934 Level 4 Est. Patient 11:03:38 CDT Tu Landeros MD [facility] CPT-55142 Level 3 Est. Patient 10:20:44 CDT Fab Morales DO [facility] CPT-30417 Level 4 Est. Patient 14:38:57 CDT Tu Landeros MD [facility] CPT-85897 Level 4 Est. Patient 14:27:39 WAREHOUSE OPERATIONS MANAGER Tu Landeros MD [facility] CPT-98354 Level 4 Est. Patient 09:45:25 CDT Tu Landeros MD [facility] CPT-79464 Level 4 Est. Patient 09:05:20 WAREHOUSE OPERATIONS MANAGER Tu Landeros MD [facility] CPT-98714 Level 4 Est. Patient 14:09:06 CDT Tu Landeros MD [facility] CPT-70460 Level 3 Est. Patient 13:36:54 CDT Tu Landeros MD [facility] CPT-74537 Level 3 Est. Patient 08:59:14 CDT Tu Landeros MD [facility] CPT-02531 Level 3 Est. Patient 13:48:35 CDT Fab Morales DO [facility] CPT-47766 Level 4 Est. Patient 10:05:48 CDT Tu Landeros MD [facility] CPT-64906 Level 3 Est. Patient 13:38:42 CDT Marek BANKS [facility] CPT-58393 Level 5 Est. Patient 08:08:39 CDT Jerrica Dawsontay FRANCIS [facility] CPT-24536 Level 4 Est. Patient 14:23:38 CDT Tu Landeros MD [facility] CPT-46223 Level 3 Est. Patient 11:44:04 CDT Tu Landeros MD [facility] CPT-28355 Level 3 Est. Patient 11:03:20 WAREHOUSE OPERATIONS MANAGER Tu Landeros MD [facility] CPT-27075 Level 3 Est. Patient 11:03:14 WAREHOUSE OPERATIONS MANAGER Tu Landeros MD [facility] CPT-97239 Level 3 Est. Patient 12:42:49 CDT Tu Landeros MD [facility] CPT-44124 Level 3 Est. Patient 11:52:06 CDT Tu Landeros MD [facility] CPT-75402 Level 3 Est. Patient 13:58:11 CDT Tu Landeros MD [facility] CPT-54375 Level 3 Est. Patient 17:50:07 CDT Fab Morales DO [facility] CPT-38107 Level 3 Est. Patient 12:06:29 CDT Elvira Cervantes MD PhD [facility] CPT-32615 Level 3 Est. Patient 15:50:32 CDT Tu Landeros MD [facility] CPT-45763 Level 4 Est. Patient 16:08:29 CDT Tu Landeros MD [facility] CPT-20845 Level 3 Est. Patient 16:04:19 CDT Tu Landeros MD [facility] CPT-51828 Level 3 Est. Patient 11:22:30 WAREHOUSE OPERATIONS MANAGER Tu Landeros MD [facility] CPT-86328 Level 4 Est. Patient 16:24:02 WAREHOUSE OPERATIONS MANAGER Tu Landeros MD [facility] CPT-57159 Level 3 Est. Patient 17:21:23 WAREHOUSE OPERATIONS MANAGER Tu Landeros MD [facility] Procedures Code Procedure Name Date Entry Date Standard Description CPT-25062 CBC - LAB USE ONLY 17:14:46 CDT CPT-25003 HGBA1C - LAB USE ONLY 17:14:46 CDT CPT-06123 Venipuncture Draw Fee 17:14:46 CDT CPT-G0438 Initial Annual Wellness Exam 14:13:04 CDT CPT-12670 Breathing Tx 10:06:54 [employer]AREHOUSE [employer]PERATIONS MANAGER CPT-90597 Postop F/U Visit 10:02:45 CDT CPT-LR Lesion Removal 09:02:56 CDT CPT-JTINJ Asp/Joint Injection 15:51:27 WAREHOUSE OPERATIONS MANAGER CPT-OV Office Visit 15:52:02 WAREHOUSE OPERATIONS MANAGER CPT-OV Office Visit 15:45:11 CDT CPT-000 Give Zostavax 14:09:06 CDT CPT-25364 Administration single or combination vaccine inc oral 15 :19:04 CDT CPT-65217 Zoster Vaccine (Zostavax) 15:19:04 CDT CPT-91181 Administration single or combination vaccine inc oral 20 :51:03 CDT CPT-83640 Influenza split virus > age 3 20:51:03 CDT CPT-19621 No Charge Offi Visit 14:52:03 CDT CPT-OV Office Visit 14:57:43 CDT CPT-OV Office Visit 15:22:32 CDT CPT-39568 Administration single or combination vaccine inc oral 11 :33:15 CDT CPT-96264 Influenza split virus > age 3 11:33:15 CDT
--- OUTSIDE RECORDS SUMMARY | 2018-04-25 17:24 | XMS REPORT | Clinical Summary ---
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 Acute sinusitis, unspecified Leg pain, left 729.5 [...] hours if needed for cough/congestion ALBUTEROL SULFATE 40885059351 Active Miranda Suresh APRN Active ZITHROMAX 250 MG TAB 2 po today, then 1 po q days 2-5 AZITHROMYCIN 11604383489 No Longer Active Miranda Suresh APRN Active METFORMIN HCL 1000 MG TABS 1 tablet by mouth twice daily METFORMIN HCL 79696122183 Active Tu Landeros MD Active FLONASE 50 MCG/ACT SUSP 1 spray each nostril twice daily until bottle empty FLUTICASONE PROPIONATE 67073039990 No Longer Active Tu Landeros MD Active COLACE 100 MG CAP 1 po BID PRN Constipation DOCUSATE SODIUM 43348563616 Active Tu Landeros MD Active SIMVASTATIN 40 MG TABS 0.5 tab daily at bedtime SIMVASTATIN 81410207076 Active JASPREET Moffett Active TRUERESULT BLOOD GLUCOSE W/DEVICE KIT test blood sugar twice daily dx 250.00 BLOOD GLUCOSE MONITORING SUPPL 67067947962 No Longer Active Tu Landeros MD Active TRUEDRAW LANCING DEVICE MISC Test twice a day dx 250.0 LANCET DEVICES 01908962858 No Longer Active Tu Landeros MD Active PREDNISONE 20 MG TAB 2 tablets once daily for 2 days, then 1 tablet once daily for 2 days PREDNISONE 06938323583 No Longer Active Tu Landeros MD Active DICLOFENAC SODIUM 50 MG TBEC 1 tablet by mouth three times a day as needed DICLOFENAC SODIUM 01665151612 No Longer Active Fab Morales DO Active TRUEDRAW LANCING DEVICE MISC test blood sugar twice daily dx: 250.00 LANCET DEVICES 05527884126 Active Tu Landeros MD Active TRUETEST TEST INVITR STRP test blood sugar twice daily. DX 250.0 GLUCOSE BLOOD 36900020610 Active Tu Landeros MD Active EMBRACE BLOOD GLUCOSE TEST STRP test blood sugar twice daily DX 250.0 2014 GLUCOSE BLOOD 64683382376 No Longer Active Tu Landeros MD Active TRUETEST TEST STRP test blood sugar three times daily dx: 250.00 GLUCOSE BLOOD 84643729426 No Longer Active Suze VOGEL Active TRUERESULT BLOOD GLUCOSE W/DEVICE KIT use to test blood sugar tid dx: 250.00 BLOOD GLUCOSE MONITORING SUPPL 70460977649 No Longer Active Suzebianca VOGEL Active ALIGN 4 MG CAPS 1 tid PROBIOTIC PRODUCT 43083072060 No Longer Active Shaun Sy MD Active CIPRO 500 MG TABS 1 bid x 14 days start 09-28-13 CIPROFLOXACIN HCL 17854764860 No Longer Active Shaun Sy MD Active TRAMADOL HCL 50 MG TABS 1-2 tablets every 6 hours as needed for pain TRAMADOL HCL 07451680014 Active Simon Smith MD Active HYDROCODONE-ACETAMINOPHEN 5-325 MG TABS 1 tab by mouth every 6 hours as needed for pain HYDROCODONE-ACETAMINOPHEN 74681876466 No Longer Active Tu Landeros MD Active OMEPRAZOLE 20 MG CPDR 1 po q a.m. OMEPRAZOLE 81450293383 Active Tu Landeros MD Active GABAPENTIN 100 MG CAPS 1 po bid GABAPENTIN 30478646636 No Longer Active Tu Landeros MD Active B-12 100 MCG TABS Take one by mouth daily CYANOCOBALAMIN 88344232025 No Longer Active Tu Landeros MD Active GABAPENTIN 100 MG CAPS by mouth twice a day GABAPENTIN 01716102996 Active Tu aLnderos MD Active BACTRIM DS 800-160 MG TABS 1 bid x 14 day start 09-28-13 SULFAMETHOXAZOLE-TRIMETHOPRIM 69270153262 No Longer Active Tu Landeros MD Active CARVEDILOL 12.5 MG TABS 1 po BID CARVEDILOL 23049452177 Active Tu Landeros MD Active SUPER B COMPLEX/VITAMIN C TABS 1 qd B COMPLEX-C 49232374900 Active JASPREET Perez Active TRILIPIX 135 MG CPDR 1 q hs CHOLINE FENOFIBRATE 86147276839 Active Tu Landeros MD Active FENOFIBRATE 145 MG TABS 1 po qd FENOFIBRATE 59073189493 No Longer Active JASPREET Perez Active OMEPRAZOLE 20 MG TBEC 1 PO 30 MIN BEFORE 1ST MEAL OMEPRAZOLE 41768690742 No Longer Active JASPREET Perez Active SIMVASTATIN 40 MG TABS Take one by mouth daily SIMVASTATIN 24527922329 No Longer Active JASPREET Perez Active VENLAFAXINE HCL 37.5 MG TABS 1 bid VENLAFAXINE HCL 26337263472 Active Tu Landeros MD Active VENLAFAXINE HCL 75 MG TABS 1 po BID VENLAFAXINE HCL 48424351034 No Longer Active JASPREET Perez Active CIPRO 500 MG TAB 1 tablet by mouth twice daily CIPROFLOXACIN HCL 96618302576 No Longer Active Tu Landeros MD Active VENLAFAXINE HCL 37.5 MG TABS 1 po BID VENLAFAXINE HCL 62476861967 No Longer Active Suzebianca NUNOA Active LAMISIL 250 MG TAB 1 po qd TERBINAFINE HCL 51882078565 No Longer Active Tu Landeros MD Active LORTAB 5 5-500 MG TABS 1/2 to 1 tablet by mouth every 4 hours as needed for pain HYDROCODONE-ACETAMINOPHEN 35669352696 No Longer Active Tu Landeros MD Active ENALAPRIL MALEATE 20 MG TABS 1.5 po qd ENALAPRIL MALEATE 57032264197 Active Tu Landeros MD Active HYDROCODONE-ACETAMINOPHEN 5-500 MG TABS take one po Q 4-6 hours prn HYDROCODONE-ACETAMINOPHEN 92956951516 No Longer Active Tu Landeros MD Active BACTRIM DS 800-160 MG TABS 1 po BID x 7 days SULFAMETHOXAZOLE-TRIMETHOPRIM 94577484860 No Longer Active Tu Landeros MD Active VENLAFAXINE HCL 75 MG TABS 1 po BID VENLAFAXINE HCL 43868449602 No Longer Active Elvira Cervantes MD PhD Active TRAMADOL HCL 50 MG TABS 1 tablets every 6 hours as needed for pain TRAMADOL HCL 91956715527 No Longer Active Tu Landeros MD Active ACCU-CHEK FASTCLIX LANCETS MISC Use to check bloodsugar three times daily as needed LANCETS 43535905189 No Longer Active Tu Landeros MD Active ACCU-CHEK KEYONA PLUS STRP Use for testing bloodsugars three times daily as needed GLUCOSE BLOOD 45300331249 No Longer Active Tu Landeros MD Active ACCU-CHEK KEYONA PLUS W/DEVICE KIT Use for testing bloodsugars three times daily as needed BLOOD GLUCOSE MONITORING SUPPL 79522083852 No Longer Active Tu Landeros MD Active SPIRONOLACTONE 25 MG TAB 0.5 tablet by mouth daily SPIRONOLACTONE 44817033498 No Longer Active Tu Landeros MD Active ALPRAZOLAM 0.5 MG TABS 1 tab every 6hrs as needed ALPRAZOLAM 68824857461 No Longer Active Tu Landeros MD Active AUGMENTIN 875-125 MG TAB 1 tab by mouth twice daily with food AMOXICILLIN-POT CLAVULANATE 09736080831 No Longer Active Tu Landeros MD Active PREDNISONE 20 MG TAB 2 tabs daily for 3 days, 1 tab daily for 3 days, 1/2 tab daily for 2 days PREDNISONE 94523962566 No Longer Active Tu Landeros MD Active XANAX 0.5 MG TABS 1 tablet every 6 hrs prn ALPRAZOLAM 01895486544 No Longer Active Tu Landeros MD Active PREDNISONE 20 MG TAB 2 tabs daily for 3 days, 1 tab daily for 3 days, 1/2 tab daily for 2 days PREDNISONE 14967833372 No Longer Active Tu Landeros MD Active TRIAMCINOLONE ACETONIDE 0.1 % OINT Apply to affected areas TID for up to 2 weeks TRIAMCINOLONE ACETONIDE 92021021620 No Longer Active Tu Landeros MD Active LORTAB 5 5-500 MG TABS 1/2 to 1 tablet by mouth every 4 hours as needed for pain HYDROCODONE-ACETAMINOPHEN 13465854415 No Longer Active Tu Landeros MD Active MULTIVITAMINS TABS Take one by mouth daily MULTIPLE VITAMIN 02516930061 No Longer Active Tu Landeros MD Active MELATONIN 5 MG TABS Take one by mouth daily MELATONIN 68574108179 No Longer Active Tu Landeros MD Active SOMA 350 MG TAB 1 po q 6 hours prn spasm CARISOPRODOL 80210437071 No Longer Active Tu Landeros MD Active MECLIZINE HCL 25 MG CHEW TAB 1 four times a day as needed for dizziness 08/05 MECLIZINE HCL 18628052282 No Longer Active Fab Morales DO Active ANGEL BREEZE 2 TEST DISK test tid prn GLUCOSE BLOOD 50088482516 No Longer Active Negra Scott RN Active REGLAN 10 MG TAB 1 po TID PRN [place] METOCLOPRAMIDE HCL 74394868219 No Longer Active Tu Landeros MD Active METFORMIN HCL 500 MG TABS 1 PO BID METFORMIN HCL 02097623617 No Longer Active Tu Landeros MD Active AMBIEN 10 MG TAB 1 tab by mouth at bedtime as needed for sleep ZOLPIDEM TARTRATE 28232968848 No Longer Active Tu Landeros MD Active FLUOXETINE HCL 40 MG CAPS 1 po q day FLUOXETINE HCL 23198192635 No Longer Active Mayra Terry Active FISH OIL 1000 MG CAPS Take one by mouth daily OMEGA-3 FATTY ACIDS 68346111960 Active Tu Landeros MD Active GLUCOSAMINE 500 MG TABS Take 2 tab po qd GLUCOSAMINE 64961915021 Active Tu Landeros MD Active TRILIPIX 135 MG CPDR 1 po qd CHOLINE FENOFIBRATE 12719646301 No Longer Active Tu Landeros MD Active ASPIRIN 81 MG CHEW TAB 1 tablet by mouth daily ASPIRIN 28872207565 Active Tu Landeros MD Active FUROSEMIDE 40 MG TAB 1 tablet by mouth daily FUROSEMIDE 63400276842 Active Tu Landeros MD Active REQUIP 2 MG TABS Take one tablet at bedtime prn ROPINIROLE HCL 95750509827 Active Tu Landeros MD Active KLOR-CON 10 10 MEQ CR-TABS TAKE 2 TABS DAILY POTASSIUM CHLORIDE 07109071589 Active Tu Landeros MD Active AMBIEN 10 MG TAB 1 tab by mouth at bedtime as needed for sleep AMBIEN 10 MG TAB 145565 ZOLPIDEM TARTRATE Inactive METFORMIN HCL 500 MG TABS 1 PO BID METFORMIN HCL 500 MG TABS 099990 METFORMIN HCL Inactive REGLAN 10 MG TAB 1 po TID PRN Nausea REGLAN 10 MG TAB 618499 METOCLOPRAMIDE HCL Inactive MECLIZINE HCL 25 MG CHEW TAB 1 four times a day as needed for dizziness 08/05 MECLIZINE HCL 25 MG CHEW TAB 845084 MECLIZINE HCL Inactive SOMA 350 MG TAB 1 po q 6 hours prn spasm SOMA 350 MG TAB 329706 CARISOPRODOL Inactive MELATONIN 5 MG TABS Take one by mouth daily MELATONIN 5 MG TABS 642320 MELATONIN Inactive MULTIVITAMINS TABS Take one by mouth daily MULTIVITAMINS TABS MULTIPLE VITAMIN Inactive LORTAB 5 5-500 MG TABS 1/2 to 1 tablet by mouth every 4 hours as needed for pain LORTAB 5 5-500 MG TABS HYDROCODONE- ACETAMINOPHEN Inactive XANAX 0.5 MG TABS 1 tablet every 6 hrs prn XANAX 0.5 MG TABS 833553 ALPRAZOLAM Inactive AUGMENTIN 875-125 MG TAB 1 tab by mouth twice daily with food AUGMENTIN 875-125 MG TAB 249401 AMOXICILLIN-POT CLAVULANATE Inactive ALPRAZOLAM 0.5 MG TABS 1 tab every 6hrs as needed ALPRAZOLAM 0.5 MG TABS 460935 ALPRAZOLAM Inactive SPIRONOLACTONE 25 MG TAB 0.5 tablet by mouth daily SPIRONOLACTONE 25 MG TAB 555031 SPIRONOLACTONE Inactive ACCU-CHEK KEYONA PLUS W/DEVICE KIT Use for testing bloodsugars three times daily as needed ACCU-CHEK KEYONA PLUS W/DEVICE KIT BLOOD GLUCOSE MONITORING SUPPL Inactive ACCU-CHEK KEYONA PLUS STRP Use for testing bloodsugars three times daily as needed ACCU-CHEK KEYONA PLUS STRP GLUCOSE BLOOD Inactive ACCU-CHEK FASTCLIX LANCETS MISC Use to check bloodsugar three times daily as needed ACCU-CHEK FASTCLIX LANCETS MISC 98189609989 LANCETS Inactive TRAMADOL HCL 50 MG TABS 1 tablets every 6 hours as needed for pain TRAMADOL HCL 50 MG TABS 716303 TRAMADOL HCL Inactive VENLAFAXINE HCL 75 MG TABS 1 po BID VENLAFAXINE HCL 75 MG TABS 600142 VENLAFAXINE HCL Inactive HYDROCODONE-ACETAMINOPHEN 5-500 MG TABS take one po Q 4-6 hours prn HYDROCODONE-ACETAMINOPHEN 5-500 MG TABS HYDROCODONE- ACETAMINOPHEN Inactive LORTAB 5 5-500 MG TABS 1/2 to 1 tablet by mouth every 4 hours as needed for pain LORTAB 5 5-500 MG TABS HYDROCODONE- ACETAMINOPHEN Inactive LAMISIL 250 MG TAB 1 po qd LAMISIL 250 MG TAB 552772 TERBINAFINE HCL Inactive VENLAFAXINE HCL 37.5 MG TABS 1 po BID VENLAFAXINE HCL 37.5 MG TABS 875737 VENLAFAXINE HCL Inactive CIPRO 500 MG TAB 1 tablet by mouth twice daily CIPRO 500 MG TAB 858185 CIPROFLOXACIN HCL Inactive VENLAFAXINE HCL 75 MG TABS 1 po BID VENLAFAXINE HCL 75 MG TABS 003049 VENLAFAXINE HCL Inactive SIMVASTATIN 40 MG TABS Take one by mouth daily SIMVASTATIN 40 MG TABS 526083 SIMVASTATIN Inactive OMEPRAZOLE 20 MG TBEC 1 PO 30 MIN BEFORE 1ST MEAL OMEPRAZOLE 20 MG TBEC 107654 OMEPRAZOLE Inactive FENOFIBRATE 145 MG TABS 1 po qd FENOFIBRATE 145 MG TABS 705471 FENOFIBRATE Inactive BACTRIM DS 800-160 MG TABS 1 bid x 14 day start 09-28-13 BACTRIM DS 800-160 MG TABS 129311 SULFAMETHOXAZOLE-TRIMETHOPRIM Inactive B-12 100 MCG TABS Take one by mouth daily B-12 100 MCG TABS CYANOCOBALAMIN Inactive GABAPENTIN 100 MG CAPS 1 po bid GABAPENTIN 100 MG CAPS 639640 GABAPENTIN Inactive HYDROCODONE-ACETAMINOPHEN 5-325 MG TABS 1 tab by mouth every 6 hours as needed for pain HYDROCODONE-ACETAMINOPHEN 5-325 MG TABS 019628 HYDROCODONE-ACETAMINOPHEN Inactive CIPRO 500 MG TABS 1 bid x 14 days start 09-28-13 CIPRO 500 MG TABS 129567 CIPROFLOXACIN HCL Inactive ALIGN 4 MG CAPS [...] as needed DICLOFENAC SODIUM 50 MG TBEC 307266 DICLOFENAC SODIUM Inactive PREDNISONE 20 MG TAB 2 tablets once daily for 2 days, then 1 tablet once daily for 2 days PREDNISONE 20 MG TAB 727018 PREDNISONE Inactive TRUEDRAW LANCING DEVICE MISC Test [...] 2 weeks TRIAMCINOLONE ACETONIDE 0.1 % OINT 7849333 TRIAMCINOLONE ACETONIDE Inactive PREDNISONE 20 MG TAB 2 tabs daily for 3 days, 1 tab daily for 3 days, 1/2 tab daily for 2 days PREDNISONE 20 MG TAB 075949 PREDNISONE Inactive PREDNISONE 20 MG TAB 2 tabs daily for 3 days, 1 tab daily for 3 days, 1/2 tab daily for 2 days PREDNISONE 20 MG TAB 262781 PREDNISONE Inactive BACTRIM DS 800-160 MG TABS 1 po BID x 7 days BACTRIM DS 800-160 MG TABS 880867 SULFAMETHOXAZOLE-TRIMETHOPRIM Inactive ZITHROMAX 250 MG TAB 2 po today, then 1 po q days 2-5 ZITHROMAX 250 MG TAB 5335304 AZITHROMYCIN Inactive Immunizations Vaccine Administration Date Value Standard Description Seasonal influenza vaccine, injectable, containing preservative, for > 3 years old (Afluria, FluLaval, Fluzone, Fluvirin, Fluarix, Agriflu(>=18 yo)) Fluzone (>3 yrs.) [[id number]] Influenza, seasonal, injectable influenza immunization (Flu Vax) has been administered 02/22/2012 influenza virus vaccine, unspecified formulation Seasonal influenza vaccine, injectable, containing preservative, for > 3 years old (Afluria, FluLaval, Fluzone, Fluvirin, Fluarix, Agriflu(>=18 yo)) Fluzone (>3 yrs.) [[id number]] Influenza, seasonal, injectable Vital Signs Date Name [...] MICROALBUMIN - Chemistry sodium, serum 142 mmol/L 579-183 6080/10/08 potassium, serum 4.5 mmol/L 3.5-5.2 chloride, serum [...] 0.30 mg/dL 0.00-1.00 cholesterol, serum 111 mg/dL 769-560 8833/07/28 triglyceride, serum, fasting 177 mg/dL 30-200 HDL [...] Panel - Chemistry cholesterol, serum 124 mg/dL 165-451 0680/01/12 triglyceride, serum, fasting 135 mg/dL 30-200 HDL cholesterol, serum 41 mg/dL 32-96 LDL cholesterol, serum 56 mg/dL 0-130 sodium, serum 140 mmol/L 663-556 5110/01/12 carbon dioxide, venous blood 27.7 mmol/L 21.0-32.0 potassium, serum 4.5 mmol/L 3.5-5.2 chloride, serum 104 mmol/L 98-107 blood glucose 139 mg/dL 65-110 urea nitrogen, blood 16 mg/dL 7-18 alanine aminotransferase (SGPT), serum 32 U/L 12-78 aspartate aminotransferase (SGOT), serum 25 U/L 15-37 calcium, serum 9.1 mg/dL 8.5-10.1 bilirubin, serum, total 0.50 mg/dL 0.00-1.00 Encounters Code Encounter Date Provider Facility CPT-59550 Level 4 Est. Patient 14:06:04 NEWSPAPER EDITOR MANAGING Tu Landeros MD [facility] CPT-07729 Level 3 Est. Patient 14:05:18 NEWSPAPER EDITOR MANAGING Tu Landeros MD [facility] CPT-59198 Level 3 Est. Patient 10:06:54 NEWSPAPER EDITOR MANAGING Miranda Suresh APRN [facility] CPT-52877 Level 4 Est. Patient 13:50:18 NEWSPAPER EDITOR MANAGING Tu Landeros MD [facility] CPT-85016 Level 3 Est. Patient 10:30:04 CDT Tu Landeros MD [facility] CPT-23507 Level 4 Est. Patient 11:03:38 CDT Tu Landeros MD [facility] CPT-81180 Level 3 Est. Patient 10:20:44 CDT Fba Morales DO [facility] CPT-23956 Level 4 Est. Patient 14:38:57 CDT Tu Landeros MD [facility] CPT-48069 Level 4 Est. Patient 14:27:39 NEWSPAPER EDITOR MANAGING Tu Landeros MD [facility] CPT-10530 Level 4 Est. Patient 09:45:25 CDT Tu Landeros MD [facility] CPT-18786 Level 4 Est. Patient 09:05:20 NEWSPAPER EDITOR MANAGING Tu Landeros MD [facility] CPT-87505 Level 4 Est. Patient 14:09:06 CDT Tu Landeros MD [facility] CPT-25267 Level 3 Est. Patient 13:36:54 CDT Tu Landeros MD [facility] CPT-69112 Level 3 Est. Patient 08:59:14 CDT Tu Landeros MD [facility] CPT-93219 Level 3 Est. Patient 13:48:35 CDT Fab Morales DO [facility] CPT-17266 Level 4 Est. Patient 10:05:48 CDT Tu Landeros MD [facility] CPT-16586 Level 3 Est. Patient 13:38:42 CDT Marek BANKS [facility] CPT-81453 Level 5 Est. Patient 08:08:39 CDT Jerrica FRANCIS [facility] CPT-77885 Level 4 Est. Patient 14:23:38 CDT Tu Landeros MD [facility] CPT-52791 Level 3 Est. Patient 11:44:04 CDT Tu Landeros MD [facility] CPT-99826 Level 3 Est. Patient 11:03:20 NEWSPAPER EDITOR MANAGING Tu Landeros MD [facility] CPT-95840 Level 3 Est. Patient 11:03:14 NEWSPAPER EDITOR MANAGING Tu Landeros MD [facility] CPT-56212 Level 3 Est. Patient 12:42:49 CDT Tu Landeros MD [facility] CPT-08031 Level 3 Est. Patient 11:52:06 CDT Tu Landeros MD [facility] CPT-20215 Level 3 Est. Patient 13:58:11 CDT Tu Landeros MD [facility] CPT-07126 Level 3 Est. Patient 17:50:07 CDT Fab Morales DO [facility] CPT-27236 Level 3 Est. Patient 12:06:29 CDT Elvira Cervantes MD, PhD [facility] CPT-18597 Level 3 Est. Patient 15:50:32 CDT Tu Landeros MD [facility] CPT-33155 Level 4 Est. Patient 16:08:29 CDT Tu Landeros MD [facility] CPT-75896 Level 3 Est. Patient 16:04:19 CDT Tu Landeros MD [facility] CPT-32309 Level 3 Est. Patient 11:22:30 NEWSPAPER EDITOR MANAGING Tu Landeros MD [facility] CPT-60339 Level 4 Est. Patient 16:24:02 NEWSPAPER EDITOR MANAGING Tu Landeros MD [facility] CPT-72059 Level 3 Est. Patient 17:21:23 NEWSPAPER EDITOR MANAGING Tu Landeros MD [facility] Procedures Code Procedure Name Date Entry Date Standard Description CPT-67480 Breathing Tx 10:06:54 NEWSPAPER EDITOR MANAGING CPT-64864 Postop F/U Visit 10:02:45 CDT CPT-LR Lesion Removal 09:02:56 CDT CPT-JTINJ Asp/Joint Injection 15:51:27 NEWSPAPER EDITOR MANAGING CPT-OV Office Visit 15:52:02 NEWSPAPER EDITOR MANAGING CPT-OV Office Visit 15:45:11 CDT CPT-000 Give Zostavax 14:09:06 CDT CPT-24692 Administration single or combination vaccine inc oral 15 :19:04 CDT CPT-35075 Zoster Vaccine (Zostavax) 15:19:04 CDT CPT-68469 Administration single or combination vaccine inc oral 20 :51:03 CDT CPT-73192 Influenza split virus > age 3 20:51:03 CDT CPT-25030 No Charge Offi Visit 14:52:03 CDT CPT-OV Office Visit 14:57:43 CDT CPT-OV Office Visit 15:22:32 CDT CPT-93447 Administration single or combination vaccine inc oral 11 :33:15 CDT CPT-32453 Influenza split virus > age 3 11:33:15 CDT
--- OUTSIDE RECORDS SUMMARY | 2018-04-25 17:28 | XMS REPORT | Clinical Summary ---
Author Author Admin, SACHI Organization [employer] Address Unknown Phone Unavailable Allergies, Adverse Reactions, [...] NDC Status Provider Patient Instruction TRUE [employer]RI[employer] AIR GLUCOSE METER W/DEVICE KIT Test blood glucose BID Dx: E11.9 BLOOD GLUCOSE MONITORING SUPPL 49001132309 Active Tu Landeros MD Active TRUETEST TEST INVITR STRP test blood sugar twice daily. DX 250.0 GLUCOSE BLOOD 84353303812 No Longer Active Mirna Stanley LPN Active TRUEDRAW LANCING DEVICE MISC test blood sugar twice daily dx: 250.00 LANCET DEVICES 46478833244 No Longer Active Mirna Stanley LPN Active ENALAPRIL MALEATE 20 MG TABS 2 po qd ENALAPRIL MALEATE 67125984645 Active Tu Landeros MD Active SUPER B COMPLEX/VITAMIN C TABS 1 qd B COMPLEX-C 12917350029 No Longer Active Tu Landeros MD Active ASPIRIN EC 81 MG ORAL TBEC 1 po qd ASPIRIN 52066007688 Active Tu Landeros MD Active GLUCOSAMINE 500 MG TABS 2 po qd GLUCOSAMINE Active Tu Landeros MD Active SIMVASTATIN 40 MG TABS 0.5 po qHS SIMVASTATIN 60350447492 Active Tu Landeros MD Active FISH OIL 1000 MG CAPS 1 po qd OMEGA-3 FATTY ACIDS 93964509138 Active Tu Landeros MD Active METFORMIN HCL 1000 MG TABS 1 po BID METFORMIN HCL 24540139472 Active Tu Landeros MD Active KLOR-CON 10 10 MEQ CR-TABS 2 po qd POTASSIUM CHLORIDE 33441260367 Active Tu Landeros MD Active FUROSEMIDE 40 MG TAB 1 po qd FUROSEMIDE 43529955923 Active Tu Landeros MD Active REQUIP 2 MG ORAL TABS 1 po qHS PRN Restless legs ROPINIROLE HCL 04365454931 Active Tu Landeros MD Active VENLAFAXINE HCL 37.5 MG TABS 1 po BID VENLAFAXINE HCL 83377308748 Active Tu Landeros MD Active GABAPENTIN 100 MG CAPS 1 po BID GABAPENTIN 66427235871 Active José Luis Becerra MD Active REQUIP 2 MG TABS Take one tablet at bedtime prn ROPINIROLE HCL 91805762679 No Longer Active Tu Landeros MD Active VENTOLIN HFA 108 (90 BASE) MCG/ACT AERS 1-2 puffs every 4 hours if needed for cough/congestion ALBUTEROL SULFATE 67326744831 No Longer Active Ambika Aden APRN Active ZITHROMAX 250 MG TAB 2 po today, then 1 po q days 2-5 AZITHROMYCIN 79377879771 No Longer Active Miranda Suresh APRN Active FLONASE 50 MCG/ACT SUSP 1 spray each nostril twice daily until bottle empty FLUTICASONE PROPIONATE 51000683726 No Longer Active Tu Landeros MD Active COLACE 100 MG CAP 1 po BID PRN Constipation DOCUSATE SODIUM 74634145703 Active Tu Landeros MD Active TRUERESULT BLOOD GLUCOSE W/DEVICE KIT test blood sugar twice daily dx 250.00 BLOOD GLUCOSE MONITORING SUPPL 85236405270 No Longer Active Tu Landeros MD Active TRUEDRAW LANCING DEVICE MISC Test twice a day dx 250.0 LANCET DEVICES 71591998694 No Longer Active Tu Landeros MD Active PREDNISONE 20 MG TAB 2 tablets once daily for 2 days, then 1 tablet once daily for 2 days PREDNISONE 70174544569 No Longer Active Tu Landeros MD Active DICLOFENAC SODIUM 50 MG TBEC 1 tablet by mouth three times a day as needed DICLOFENAC SODIUM 56211432758 No Longer Active Fab Morales DO Active EMBRACE BLOOD GLUCOSE TEST STRP test blood sugar twice daily DX 250.0 2014 GLUCOSE BLOOD 41116868541 No Longer Active Tu Landeros MD Active TRUETEST TEST STRP test blood sugar three times daily dx: 250.00 GLUCOSE BLOOD 45184309258 No Longer Active Suzebianca VOGEL Active TRUERESULT BLOOD GLUCOSE W/DEVICE KIT use to test blood sugar tid dx: 250.00 BLOOD GLUCOSE MONITORING SUPPL 28859995328 No Longer Active Suze Corey RMA Active ALIGN 4 MG CAPS 1 tid PROBIOTIC PRODUCT 44173981324 No Longer Active Shaun Sy MD Active CIPRO 500 MG TABS 1 bid x 14 days start 09-28-13 CIPROFLOXACIN HCL 28251803648 No Longer Active Shaun Sy MD Active TRAMADOL HCL 50 MG TABS 1-2 tablets every 6 hours as needed for pain TRAMADOL HCL 72832276195 Active Tu Landeros MD Active HYDROCODONE-ACETAMINOPHEN 5-325 MG TABS 1 tab by mouth every 6 hours as needed for pain HYDROCODONE-ACETAMINOPHEN 72328747982 No Longer Active Tu Landeros MD Active OMEPRAZOLE 20 MG CPDR 1 po q a.m. OMEPRAZOLE 74481595244 Active Tu Landeros MD Active GABAPENTIN 100 MG CAPS 1 po bid GABAPENTIN 09916318799 No Longer Active Tu Landeros MD Active B-12 100 MCG TABS Take one by mouth daily CYANOCOBALAMIN 48244998029 No Longer Active Tu Landeros MD Active BACTRIM DS 800-160 MG TABS 1 bid x 14 day start 09-28-13 SULFAMETHOXAZOLE-TRIMETHOPRIM 19994829073 No Longer Active Tu Landeros MD Active CARVEDILOL 12.5 MG TABS 1 po BID CARVEDILOL 41097332090 Active Tu Landeros MD Active TRILIPIX 135 MG CPDR 1 q hs CHOLINE FENOFIBRATE 09496142216 Active Tu Landeros MD Active FENOFIBRATE 145 MG TABS 1 po qd FENOFIBRATE 59044412603 No Longer Active JASPREET Perez Active OMEPRAZOLE 20 MG TBEC 1 PO 30 MIN BEFORE 1ST MEAL OMEPRAZOLE 62966391497 No Longer Active JASPREET Perez Active SIMVASTATIN 40 MG TABS Take one by mouth daily SIMVASTATIN 27961491579 No Longer Active JASPREET Perez Active VENLAFAXINE HCL 75 MG TABS 1 po BID VENLAFAXINE HCL 24815440803 No Longer Active JASPREET Perez Active CIPRO 500 MG TAB 1 tablet by mouth twice daily CIPROFLOXACIN HCL 64345875608 No Longer Active Tu Landeros MD Active VENLAFAXINE HCL 37.5 MG TABS 1 po BID VENLAFAXINE HCL 05693469193 No Longer Active Suzebianca Nicole RMA Active LAMISIL 250 MG TAB 1 po qd TERBINAFINE HCL 24832236471 No Longer Active Tu Landeros MD Active LORTAB 5 5-500 MG TABS 1/2 to 1 tablet by mouth every 4 hours as needed for pain HYDROCODONE-ACETAMINOPHEN 49785131585 No Longer Active Tu Landeros MD Active HYDROCODONE-ACETAMINOPHEN 5-500 MG TABS take one po Q 4-6 hours prn HYDROCODONE-ACETAMINOPHEN 73929882605 No Longer Active Tu Landeros MD Active BACTRIM DS 800-160 MG TABS 1 po BID x 7 days SULFAMETHOXAZOLE-TRIMETHOPRIM 95587723318 No Longer Active Tu Landeros MD Active VENLAFAXINE HCL 75 MG TABS 1 po BID VENLAFAXINE HCL 70274762228 No Longer Active Elvira Cervantes MD PhD Active TRAMADOL HCL 50 MG TABS 1 tablets every 6 hours as needed for pain TRAMADOL HCL 86918255390 No Longer Active Tu Landeros MD Active ACCU-CHEK FASTCLIX LANCETS MISC Use to check bloodsugar three times daily as needed LANCETS 81805923789 No Longer Active Tu Landeros MD Active ACCU-CHEK KEYONA PLUS STRP Use for testing bloodsugars three times daily as needed GLUCOSE BLOOD 50081603475 No Longer Active Tu Landeros MD Active ACCU-CHEK KEYONA PLUS W/DEVICE KIT Use for testing bloodsugars three times daily as needed BLOOD GLUCOSE MONITORING SUPPL 18987218876 No Longer Active Tu Landeros MD Active SPIRONOLACTONE 25 MG TAB 0.5 tablet by mouth daily SPIRONOLACTONE 69741677037 No Longer Active Tu Landeros MD Active ALPRAZOLAM 0.5 MG TABS 1 tab every 6hrs as needed ALPRAZOLAM 64439449514 No Longer Active Tu Landeros MD Active AUGMENTIN 875-125 MG TAB 1 tab by mouth twice daily with food AMOXICILLIN-POT CLAVULANATE 13382986915 No Longer Active Tu Landeros MD Active PREDNISONE 20 MG TAB 2 tabs daily for 3 days, 1 tab daily for 3 days, 1/2 tab daily for 2 days PREDNISONE 01599720075 No Longer Active Tu Landeros MD Active XANAX 0.5 MG TABS 1 tablet every 6 hrs prn ALPRAZOLAM 90495952240 No Longer Active Tu Landeros MD Active PREDNISONE 20 MG TAB 2 tabs daily for 3 days, 1 tab daily for 3 days, 1/2 tab daily for 2 days PREDNISONE 70602552156 No Longer Active Tu Landeros MD Active TRIAMCINOLONE ACETONIDE 0.1 % OINT Apply to affected areas TID for up to 2 weeks TRIAMCINOLONE ACETONIDE 90835814099 No Longer Active Tu Landeros MD Active LORTAB 5 5-500 MG TABS 1/2 to 1 tablet by mouth every 4 hours as needed for pain HYDROCODONE-ACETAMINOPHEN 20708933425 No Longer Active Tu Landeros MD Active MULTIVITAMINS TABS Take one by mouth daily MULTIPLE VITAMIN 01130308076 No Longer Active Tu Landeros MD Active MELATONIN 5 MG TABS Take one by mouth daily MELATONIN 60246776733 No Longer Active Tu Landeros MD Active SOMA 350 MG TAB 1 po q 6 hours prn spasm CARISOPRODOL 80794379529 No Longer Active Tu Landeros MD Active MECLIZINE HCL 25 MG CHEW TAB 1 four times a day as needed for dizziness 08/05 MECLIZINE HCL 48093747395 No Longer Active Fab Morales DO Active ANGEL BREEZE 2 TEST DISK test tid prn GLUCOSE BLOOD 84380050645 No Longer Active Negra Scott RN Active REGLAN 10 MG TAB 1 po TID PRN Nausea METOCLOPRAMIDE HCL 17231079040 No Longer Active Tu Landeros MD Active METFORMIN HCL 500 MG TABS 1 PO BID METFORMIN HCL 79168797642 No Longer Active Tu Landeros MD Active AMBIEN 10 MG TAB 1 tab by mouth at bedtime as needed for sleep ZOLPIDEM TARTRATE 89375165205 No Longer Active Tu Landeros MD Active FLUOXETINE HCL 40 MG CAPS 1 po q day FLUOXETINE HCL 10647903613 No Longer Active Mayra Terry Active TRILIPIX 135 MG CPDR 1 po qd CHOLINE FENOFIBRATE 90894724285 No Longer Active Tu Landeros MD Active AMBIEN 10 MG TAB 1 tab by mouth at bedtime as needed for sleep AMBIEN 10 MG TAB 935832 ZOLPIDEM TARTRATE Inactive METFORMIN HCL 500 MG TABS 1 PO BID METFORMIN HCL 500 MG TABS 341213 METFORMIN HCL Inactive REGLAN 10 MG TAB 1 po TID PRN Nausea REGLAN 10 MG TAB 003988 METOCLOPRAMIDE HCL Inactive MECLIZINE HCL 25 MG CHEW TAB 1 four times a day as needed for dizziness 08/05 MECLIZINE HCL 25 MG CHEW TAB 294991 MECLIZINE HCL Inactive SOMA 350 MG TAB 1 po q 6 hours prn spasm SOMA 350 MG TAB 039186 CARISOPRODOL Inactive MELATONIN 5 MG TABS Take one by mouth daily MELATONIN 5 MG TABS 561761 MELATONIN Inactive MULTIVITAMINS TABS Take one by mouth daily MULTIVITAMINS TABS MULTIPLE VITAMIN Inactive LORTAB 5 5-500 MG TABS 1/2 to 1 tablet by mouth every 4 hours as needed for pain LORTAB 5 5-500 MG TABS HYDROCODONE- ACETAMINOPHEN Inactive XANAX 0.5 MG TABS 1 tablet every 6 hrs prn XANAX 0.5 MG TABS 009979 ALPRAZOLAM Inactive AUGMENTIN 875-125 MG TAB 1 tab by mouth twice daily with food AUGMENTIN 875-125 MG TAB 385090 AMOXICILLIN-POT CLAVULANATE Inactive ALPRAZOLAM 0.5 MG TABS 1 tab every 6hrs as needed ALPRAZOLAM 0.5 MG TABS 282762 ALPRAZOLAM Inactive SPIRONOLACTONE 25 MG TAB 0.5 tablet by mouth daily SPIRONOLACTONE 25 MG TAB 695646 SPIRONOLACTONE Inactive ACCU-CHEK KEYONA PLUS W/DEVICE KIT Use for testing bloodsugars three times daily as needed ACCU-CHEK KEYONA PLUS W/DEVICE KIT BLOOD GLUCOSE MONITORING SUPPL Inactive ACCU-CHEK KEYONA PLUS STRP Use for testing bloodsugars three times daily as needed ACCU-CHEK KEYONA PLUS STRP GLUCOSE BLOOD Inactive ACCU-CHEK FASTCLIX LANCETS MISC Use to check bloodsugar three times daily as needed ACCU-CHEK FASTCLIX LANCETS MISC 12461463695 LANCETS Inactive TRAMADOL HCL 50 MG TABS 1 tablets every 6 hours as needed for pain TRAMADOL HCL 50 MG TABS 575269 TRAMADOL HCL Inactive VENLAFAXINE HCL 75 MG TABS 1 po BID VENLAFAXINE HCL 75 MG TABS 436460 VENLAFAXINE HCL Inactive HYDROCODONE-ACETAMINOPHEN 5-500 MG TABS take one po Q 4-6 hours prn HYDROCODONE-ACETAMINOPHEN 5-500 MG TABS HYDROCODONE- ACETAMINOPHEN Inactive LORTAB 5 5-500 MG TABS 1/2 to 1 tablet by mouth every 4 hours as needed for pain LORTAB 5 5-500 MG TABS HYDROCODONE- ACETAMINOPHEN Inactive LAMISIL 250 MG TAB 1 po qd LAMISIL 250 MG TAB 283909 TERBINAFINE HCL Inactive VENLAFAXINE HCL 37.5 MG TABS 1 po BID VENLAFAXINE HCL 37.5 MG TABS 064182 VENLAFAXINE HCL Inactive CIPRO 500 MG TAB 1 tablet by mouth twice daily CIPRO 500 MG TAB 666477 CIPROFLOXACIN HCL Inactive VENLAFAXINE HCL 75 MG TABS 1 po BID VENLAFAXINE HCL 75 MG TABS 713704 VENLAFAXINE HCL Inactive SIMVASTATIN 40 MG TABS Take one by mouth daily SIMVASTATIN 40 MG TABS 053771 SIMVASTATIN Inactive OMEPRAZOLE 20 MG TBEC 1 PO 30 MIN BEFORE 1ST MEAL OMEPRAZOLE 20 MG TBEC 701292 OMEPRAZOLE Inactive FENOFIBRATE 145 MG TABS 1 po qd FENOFIBRATE 145 MG TABS 360145 FENOFIBRATE Inactive BACTRIM DS 800-160 MG TABS 1 bid x 14 day start 09-28-13 BACTRIM DS 800-160 MG TABS 048480 SULFAMETHOXAZOLE-TRIMETHOPRIM Inactive B-12 100 MCG TABS Take one by mouth daily B-12 100 MCG TABS CYANOCOBALAMIN Inactive GABAPENTIN 100 MG CAPS 1 po bid GABAPENTIN 100 MG CAPS 260821 GABAPENTIN Inactive HYDROCODONE-ACETAMINOPHEN 5-325 MG TABS 1 tab by mouth every 6 hours as needed for pain HYDROCODONE-ACETAMINOPHEN 5-325 MG TABS 923354 HYDROCODONE-ACETAMINOPHEN Inactive CIPRO 500 MG TABS 1 bid x 14 days start 09-28-13 CIPRO 500 MG TABS 057462 CIPROFLOXACIN HCL Inactive ALIGN 4 MG CAPS [...] as needed DICLOFENAC SODIUM 50 MG TBEC 438518 DICLOFENAC SODIUM Inactive PREDNISONE 20 MG TAB 2 tablets once daily for 2 days, then 1 tablet once daily for 2 days PREDNISONE 20 MG TAB 687747 PREDNISONE Inactive TRUEDRAW LANCING DEVICE MISC Test [...] at bedtime prn REQUIP 2 MG TABS 547985 ROPINIROLE HCL Inactive SUPER B COMPLEX/VITAMIN C TABS 1 qd SUPER B COMPLEX/ VITAMIN C TABS 83986010826 B COMPLEX-C Inactive TRUEDRAW LANCING DEVICE MISC test blood sugar twice daily dx: 250.00 TRUEDRAW LANCING DEVICE MISC LANCET DEVICES Inactive TRUETEST TEST INVITR STRP test blood sugar twice daily. DX 250.0 TRUETEST TEST INVITR STRP GLUCOSE BLOOD Inactive TRIAMCINOLONE ACETONIDE 0.1 % OINT Apply to affected areas TID for up to 2 weeks TRIAMCINOLONE ACETONIDE 0.1 % OINT 3676404 TRIAMCINOLONE ACETONIDE Inactive PREDNISONE 20 MG TAB 2 tabs daily for 3 days, 1 tab daily for 3 days, 1/2 tab daily for 2 days PREDNISONE 20 MG TAB 913777 PREDNISONE Inactive PREDNISONE 20 MG TAB 2 tabs daily for 3 days, 1 tab daily for 3 days, 1/2 tab daily for 2 days PREDNISONE 20 MG TAB 678975 PREDNISONE Inactive BACTRIM DS 800-160 MG TABS 1 po BID x 7 days BACTRIM DS 800-160 MG TABS 571270 SULFAMETHOXAZOLE-TRIMETHOPRIM Inactive ZITHROMAX 250 MG TAB 2 po today, then 1 po q days 2-5 ZITHROMAX 250 MG TAB 4063117 AZITHROMYCIN Inactive Advance Directives Directive Description Start Date DISCUSSED WITH PATIENT -- NO DECISION MADE Immunizations Vaccine Administration Date Value Standard Description Seasonal influenza vaccine, injectable, containing preservative, for > 3 years old (Afluria, FluLaval, Fluzone, Fluvirin, Fluarix, Agriflu(>=18 yo)) Fluzone (>3 yrs.) [[id number]] Influenza, seasonal, injectable influenza immunization (Flu Vax) has been administered 02/22/2012 influenza virus vaccine, unspecified formulation Seasonal influenza vaccine, injectable, containing preservative, for > 3 years old (Afluria, FluLaval, Fluzone, Fluvirin, Fluarix, Agriflu(>=18 yo)) Fluzone (>3 yrs.) [[id number]] Influenza, seasonal, injectable Vital Signs Date Name [...] Magnesium - Chemistry sodium, serum 143 mmol/L 696-106 3180/01/10 carbon dioxide, venous blood 28.0 mmol/L 21.0-32.0 potassium, serum 4.5 mmol/L 3.5-5.2 chloride, serum 104 mmol/L 98-107 blood glucose 158 mg/dL 65-110 urea nitrogen, blood 23 mg/dL 7-18 creatinine, serum 1.06 mg/dL 0.55-1.30 alanine aminotransferase (SGPT), serum 42 U/L 12-78 aspartate aminotransferase (SGOT), serum 32 U/L 15-37 calcium, serum 9.3 mg/dL 8.5-10.1 bilirubin, serum, total 0.20 mg/dL 0.00-1.00 cholesterol, serum 177 mg/dL 548-647 9604/01/10 triglyceride, serum, fasting 320 mg/dL 30-200 HDL cholesterol, serum 46 mg/dL 32-96 LDL cholesterol, serum 67 mg/dL 0-130 Lab Report: HGBA1C - Chemistry hemoglobin A1C, blood, as % of total hemoglobin 7.1 % 4.3-6.0 hemoglobin A1C, blood, as % of total hemoglobin 7.4 % 4.3-6.0 sodium, serum 140 mmol/L 845-452 1401/09/07 potassium, serum 4.3 mmol/L 3.5-5.2 chloride, serum [...] <30 Encounters Code Encounter Date Provider Facility CPT-20129 Level 4 Est. Patient 09:08:17 [employer] Tu Landeros MD [facility] CPT-96994 Level 4 Est. Patient 14:40:19 CDT Tu Landeros MD [facility] CPT-26997 Level 4 Est. Patient 14:06:04 [employer] Tu Landeros MD [facility] CPT-04924 Level 3 Est. Patient 14:05:18 [employer] Tu Landeros MD [facility] CPT-42080 Level 3 Est. Patient 10:06:54 [employer] Miranda Suresh APRN [facility] CPT-44539 Level 4 Est. Patient 13:50:18 [employer] Tu Landeros MD [facility] CPT-75617 Level 3 Est. Patient 10:30:04 CDT Tu Landeros MD [facility] CPT-32116 Level 4 Est. Patient 11:03:38 CDT Tu Landeros MD [facility] CPT-38606 Level 3 Est. Patient 10:20:44 CDT Fab Morales DO [facility] CPT-67338 Level 4 Est. Patient 14:38:57 CDT Tu Landeros MD [facility] CPT-64528 Level 4 Est. Patient 14:27:39 [employer] Tu Landeros MD [facility] CPT-46755 Level 4 Est. Patient 09:45:25 CDT Tu Landeros MD [facility] CPT-86604 Level 4 Est. Patient 09:05:20 [employer] Tu Landeros MD [facility] CPT-65367 Level 4 Est. Patient 14:09:06 CDT Tu Landeros MD [facility] CPT-17944 Level 3 Est. Patient 13:36:54 CDT Tu Landeros MD [facility] CPT-01643 Level 3 Est. Patient 08:59:14 CDT Tu Landeros MD [facility] CPT-31500 Level 3 Est. Patient 13:48:35 CDT Fab Morales DO [facility] CPT-45365 Level 4 Est. Patient 10:05:48 CDT Tu Landeros MD [facility] CPT-74836 Level 3 Est. Patient 13:38:42 CDT Marek BANKS [facility] CPT-64915 Level 5 Est. Patient 08:08:39 CDT Jerrica FRANCIS [facility] CPT-04646 Level 4 Est. Patient 14:23:38 CDT Tu Landeros MD [facility] CPT-87140 Level 3 Est. Patient 11:44:04 CDT Tu Landeros MD [facility] CPT-86013 Level 3 Est. Patient 11:03:20 [employer] Tu Landeros MD [facility] CPT-09607 Level 3 Est. Patient 11:03:14 [employer] Tu Landeros MD [facility] CPT-44806 Level 3 Est. Patient 12:42:49 CDT Tu Landeros MD [facility] CPT-36631 Level 3 Est. Patient 11:52:06 CDT Tu Landeros MD [facility] CPT-10091 Level 3 Est. Patient 13:58:11 CDT Tu Landeros MD [facility] CPT-02084 Level 3 Est. Patient 17:50:07 CDT Fab Morales DO [facility] CPT-20918 Level 3 Est. Patient 12:06:29 CDT Elvira Cervantes MD PhD [facility] CPT-70150 Level 3 Est. Patient 15:50:32 CDT Tu Landeros MD [facility] CPT-67457 Level 4 Est. Patient 16:08:29 CDT Tu Landeros MD [facility] CPT-37623 Level 3 Est. Patient 16:04:19 CDT Tu Landeros MD [facility] CPT-32867 Level 3 Est. Patient 11:22:30 [employer] Tu Landeros MD [facility] CPT-28020 Level 4 Est. Patient 16:24:02 [employer] Tu Landeros MD [facility] CPT-03189 Level 3 Est. Patient 17:21:23 [employer] Tu Landeros MD [facility] Procedures Code Procedure Name Date Entry Date Standard Description CPT-20094 Magnesium - LAB USE ONLY 11:14:20 [employer] CPT-04708 Lipid - LAB USE ONLY 11:14:20 [employer] CPT-26292 HGBA1C - LAB USE ONLY 11:14:20 [employer] CPT-33714 CMP - LAB USE ONLY 11:14:19 [employer] CPT-25599 CBC - LAB USE ONLY 11:14:19 [employer] CPT-88270 Venipuncture Draw Fee 11:14:18 [employer] CPT-91356 First Vx - Ix admin for Medicare patients 16:46:52 CDT CPT-33787 Fluzone Preservative Free Intramuscular Suspension 16:46 :51 CDT CPT-97683 CBC - LAB USE ONLY 17:14:46 CDT CPT-33828 HGBA1C - LAB USE ONLY 17:14:46 CDT CPT-87837 Venipuncture Draw Fee 17:14:46 CDT CPT-G0438 Initial Annual Wellness Exam 14:13:04 CDT CPT-27702 Breathing Tx 10:06:54 [employer] CPT-99517 Postop F/U Visit 10:02:45 CDT CPT-LR Lesion Removal 09:02:56 CDT CPT-JTINJ Asp/Joint Injection 15:51:27 [employer] CPT-OV Office Visit 15:52:02 [employer] CPT-OV Office Visit 15:45:11 CDT CPT-000 Give Zostavax 14:09:06 CDT CPT-85574 Administration single or combination vaccine inc oral 15 :19:04 CDT CPT-58477 Zoster Vaccine (Zostavax) 15:19:04 CDT CPT-36501 Administration single or combination vaccine inc oral 20 :51:03 CDT CPT-12174 Influenza split virus > age 3 20:51:03 CDT CPT-50695 No Charge Offi Visit 14:52:03 CDT CPT-OV Office Visit 14:57:43 CDT CPT-OV Office Visit 15:22:32 CDT CPT-78206 Administration single or combination vaccine inc oral 11 :33:15 CDT CPT-78766 Influenza split virus > age 3 11:33:15 CDT
--- OUTSIDE RECORDS SUMMARY | 2018-04-25 17:34 | XMS REPORT | Clinical Summary ---
Author Author Admin, SACHI Organization [employer] Address Unknown Phone Unavailable Allergies, Adverse Reactions, [...] 40 MG TABS 0.5 po qHS SIMVASTATIN 16816333251 Active Tu Landeros MD Active FISH OIL 1000 MG CAPS 1 po qd OMEGA-3 FATTY ACIDS 99654196346 Active Tu Landeros MD Active METFORMIN HCL 1000 MG TABS 1 po BID METFORMIN HCL 20514589579 Active Tu Landeros MD Active KLOR-CON 10 10 MEQ CR-TABS 2 po qd POTASSIUM CHLORIDE 99600252668 Active Tu Landeros MD Active FUROSEMIDE 40 MG TAB 1 po qd FUROSEMIDE 42114359134 Active Tu Landeros MD Active REQUIP 2 MG ORAL TABS 1 po qHS PRN Restless legs ROPINIROLE HCL 22533555536 Active Tu Landeros MD Active VENLAFAXINE HCL 37.5 MG TABS 1 po BID VENLAFAXINE HCL 96262948275 Active Tu Landeros MD Active GABAPENTIN 100 MG CAPS 1 po BID GABAPENTIN 71867144518 Active José Luis Becerra MD Active REQUIP 2 MG TABS Take one tablet at bedtime prn ROPINIROLE HCL 56487846856 No Longer Active Tu Landeros MD Active VENTOLIN HFA 108 (90 BASE) MCG/ACT AERS 1-2 puffs every 4 hours if needed for cough/congestion ALBUTEROL SULFATE 80215912408 No Longer Active Ambika Aden APRN Active ZITHROMAX 250 MG TAB 2 po today, then 1 po q days 2-5 AZITHROMYCIN 11589075007 No Longer Active Miranda Suresh APRN Active FLONASE 50 MCG/ACT SUSP 1 spray each nostril twice daily until bottle empty FLUTICASONE PROPIONATE 92501817619 No Longer Active Tu Landeros MD Active COLACE 100 MG CAP 1 po BID PRN Constipation DOCUSATE SODIUM 05710993027 Active Tu Landeros MD Active TRUERESULT BLOOD GLUCOSE W/DEVICE KIT test blood sugar twice daily dx 250.00 BLOOD GLUCOSE MONITORING SUPPL 84976026231 No Longer Active Tu Landeros MD Active TRUEDRAW LANCING DEVICE MISC Test twice a day dx 250.0 LANCET DEVICES 33570205247 No Longer Active Tu Landeros MD Active PREDNISONE 20 MG TAB 2 tablets once daily for 2 days, then 1 tablet once daily for 2 days PREDNISONE 98812759764 No Longer Active Tu Landeros MD Active DICLOFENAC SODIUM 50 MG TBEC 1 tablet by mouth three times a day as needed DICLOFENAC SODIUM 60240300937 No Longer Active Fab Morales DO Active TRUEDRAW LANCING DEVICE MISC test blood sugar twice daily dx: 250.00 LANCET DEVICES 84297550614 Active Tu Landeros MD Active TRUETEST TEST INVITR STRP test blood sugar twice daily. DX 250.0 GLUCOSE BLOOD 86421154716 Active Tu Landeros MD Active EMBRACE BLOOD GLUCOSE TEST STRP test blood sugar twice daily DX 250.0 2014 GLUCOSE BLOOD 90602399044 No Longer Active Tu Landeros MD Active TRUETEST TEST STRP test blood sugar three times daily dx: 250.00 GLUCOSE BLOOD 62987453072 No Longer Active Suze VOGEL Active TRUERESULT BLOOD GLUCOSE W/DEVICE KIT use to test blood sugar tid dx: 250.00 BLOOD GLUCOSE MONITORING SUPPL 51761988082 No Longer Active Suze Nicole JASPREET Active ALIGN 4 MG CAPS 1 tid PROBIOTIC PRODUCT 70435311405 No Longer Active Shaun Sy MD Active CIPRO 500 MG TABS 1 bid x 14 days start 09-28-13 CIPROFLOXACIN HCL 91412936599 No Longer Active Shaun Sy MD Active TRAMADOL HCL 50 MG TABS 1-2 tablets every 6 hours as needed for pain TRAMADOL HCL 42730796085 Active Tu Landeros MD Active HYDROCODONE-ACETAMINOPHEN 5-325 MG TABS 1 tab by mouth every 6 hours as needed for pain HYDROCODONE-ACETAMINOPHEN 94475935442 No Longer Active Tu Landeros MD Active OMEPRAZOLE 20 MG CPDR 1 po q a.m. OMEPRAZOLE 46555330580 Active Tu Landeros MD Active GABAPENTIN 100 MG CAPS 1 po bid GABAPENTIN 53844747870 No Longer Active Tu Landeros MD Active B-12 100 MCG TABS Take one by mouth daily CYANOCOBALAMIN 66558835933 No Longer Active Tu Landeros MD Active BACTRIM DS 800-160 MG TABS 1 bid x 14 day start 09-28-13 SULFAMETHOXAZOLE-TRIMETHOPRIM 23393459133 No Longer Active Tu Landeros MD Active CARVEDILOL 12.5 MG TABS 1 po BID CARVEDILOL 87804294652 Active Tu Landeros MD Active SUPER B COMPLEX/VITAMIN C TABS 1 qd B COMPLEX-C 87139648055 Active JASPREET Perez Active TRILIPIX 135 MG CPDR 1 q hs CHOLINE FENOFIBRATE 21058247315 Active Tu Landeros MD Active FENOFIBRATE 145 MG TABS 1 po qd FENOFIBRATE 96222980520 No Longer Active JASPREET Perez Active OMEPRAZOLE 20 MG TBEC 1 PO 30 MIN BEFORE 1ST MEAL OMEPRAZOLE 33682972920 No Longer Active JASPREET Perez Active SIMVASTATIN 40 MG TABS Take one by mouth daily SIMVASTATIN 10283341382 No Longer Active JASPREET Perez Active VENLAFAXINE HCL 75 MG TABS 1 po BID VENLAFAXINE HCL 65364172171 No Longer Active JASPREET Perez Active CIPRO 500 MG TAB 1 tablet by mouth twice daily CIPROFLOXACIN HCL 70231367201 No Longer Active Tu Landeros MD Active VENLAFAXINE HCL 37.5 MG TABS 1 po BID VENLAFAXINE HCL 50767356730 No Longer Active Suzebianca Seguraart RMA Active LAMISIL 250 MG TAB 1 po qd TERBINAFINE HCL 94734627287 No Longer Active Tu Landeros MD Active LORTAB 5 5-500 MG TABS 1/2 to 1 tablet by mouth every 4 hours as needed for pain HYDROCODONE-ACETAMINOPHEN 54551011016 No Longer Active Tu Landeros MD Active ENALAPRIL MALEATE 20 MG TABS 1.5 po qd ENALAPRIL MALEATE 82938395959 Active Tu Landeros MD Active HYDROCODONE-ACETAMINOPHEN 5-500 MG TABS take one po Q 4-6 hours prn HYDROCODONE-ACETAMINOPHEN 77118472702 No Longer Active Tu Landeros MD Active BACTRIM DS 800-160 MG TABS 1 po BID x 7 days SULFAMETHOXAZOLE-TRIMETHOPRIM 53050314744 No Longer Active Tu Landeros MD Active VENLAFAXINE HCL 75 MG TABS 1 po BID VENLAFAXINE HCL 84703001294 No Longer Active Elvira Cervantes MD PhD Active TRAMADOL HCL 50 MG TABS 1 tablets every 6 hours as needed for pain TRAMADOL HCL 18119328461 No Longer Active Tu Landeros MD Active ACCU-CHEK FASTCLIX LANCETS MISC Use to check bloodsugar three times daily as needed LANCETS 37567825558 No Longer Active Tu Landeros MD Active ACCU-CHEK KEYONA PLUS STRP Use for testing bloodsugars three times daily as needed GLUCOSE BLOOD 78735142433 No Longer Active Tu Landeros MD Active ACCU-CHEK KEYONA PLUS W/DEVICE KIT Use for testing bloodsugars three times daily as needed BLOOD GLUCOSE MONITORING SUPPL 19586132988 No Longer Active Tu Landeros MD Active SPIRONOLACTONE 25 MG TAB 0.5 tablet by mouth daily SPIRONOLACTONE 57716097432 No Longer Active Tu Landeros MD Active ALPRAZOLAM 0.5 MG TABS 1 tab every 6hrs as needed ALPRAZOLAM 17610099045 No Longer Active Tu Landeros MD Active AUGMENTIN 875-125 MG TAB 1 tab by mouth twice daily with food AMOXICILLIN-POT CLAVULANATE 27251682711 No Longer Active Tu Landeros MD Active PREDNISONE 20 MG TAB 2 tabs daily for 3 days, 1 tab daily for 3 days, 1/2 tab daily for 2 days PREDNISONE 69883658597 No Longer Active Tu Landeros MD Active XANAX 0.5 MG TABS 1 tablet every 6 hrs prn ALPRAZOLAM 32257213917 No Longer Active Tu Landeros MD Active PREDNISONE 20 MG TAB 2 tabs daily for 3 days, 1 tab daily for 3 days, 1/2 tab daily for 2 days PREDNISONE 14338533794 No Longer Active Tu Landeros MD Active TRIAMCINOLONE ACETONIDE 0.1 % OINT Apply to affected areas TID for up to 2 weeks TRIAMCINOLONE ACETONIDE 12791470156 No Longer Active Tu Landeros MD Active LORTAB 5 5-500 MG TABS 1/2 to 1 tablet by mouth every 4 hours as needed for pain HYDROCODONE-ACETAMINOPHEN 02328012505 No Longer Active Tu Landeros MD Active MULTIVITAMINS TABS Take one by mouth daily MULTIPLE VITAMIN 50221154574 No Longer Active Tu Landeros MD Active MELATONIN 5 MG TABS Take one by mouth daily MELATONIN 16096164475 No Longer Active Tu Landeros MD Active SOMA 350 MG TAB 1 po q 6 hours prn spasm CARISOPRODOL 61119457071 No Longer Active Tu Landeros MD Active MECLIZINE HCL 25 MG CHEW TAB 1 four times a day as needed for dizziness 08/05 MECLIZINE HCL 86857317869 No Longer Active Fab Morales DO Active ANGEL BREEZE 2 TEST DISK test tid prn GLUCOSE BLOOD 13127546982 No Longer Active Negra Scott RN Active REGLAN 10 MG TAB 1 po TID PRN Nausea METOCLOPRAMIDE HCL 51331325007 No Longer Active Tu Landeros MD Active METFORMIN HCL 500 MG TABS 1 PO BID METFORMIN HCL 61888178936 No Longer Active Tu Landeros MD Active AMBIEN 10 MG TAB 1 tab by mouth at bedtime as needed for sleep ZOLPIDEM TARTRATE 12050036109 No Longer Active Tu Landeros MD Active FLUOXETINE HCL 40 MG CAPS 1 po q day FLUOXETINE HCL 65382636620 No Longer Active Mayra Milbank Active GLUCOSAMINE 500 MG TABS Take 2 tab po qd GLUCOSAMINE 73327330038 Active Tu Landeros MD Active TRILIPIX 135 MG CPDR 1 po qd CHOLINE FENOFIBRATE 07159895957 No Longer Active Tu Landeros MD Active ASPIRIN 81 MG CHEW TAB 1 tablet by mouth daily ASPIRIN 96088811529 Active Tu Landeros MD Active AMBIEN 10 MG TAB 1 tab by mouth at bedtime as needed for sleep AMBIEN 10 MG TAB 623642 ZOLPIDEM TARTRATE Inactive METFORMIN HCL 500 MG TABS 1 PO BID METFORMIN HCL 500 MG TABS 409360 METFORMIN HCL Inactive REGLAN 10 MG TAB 1 po TID PRN Nausea REGLAN 10 MG TAB 486027 METOCLOPRAMIDE HCL Inactive MECLIZINE HCL 25 MG CHEW TAB 1 four times a day as needed for dizziness 08/05 MECLIZINE HCL 25 MG CHEW TAB 884988 MECLIZINE HCL Inactive SOMA 350 MG TAB 1 po q 6 hours prn spasm SOMA 350 MG TAB 930584 CARISOPRODOL Inactive MELATONIN 5 MG TABS Take one by mouth daily MELATONIN 5 MG TABS 250640 MELATONIN Inactive MULTIVITAMINS TABS Take one by mouth daily MULTIVITAMINS TABS MULTIPLE VITAMIN Inactive LORTAB 5 5-500 MG TABS 1/2 to 1 tablet by mouth every 4 hours as needed for pain LORTAB 5 5-500 MG TABS HYDROCODONE- ACETAMINOPHEN Inactive XANAX 0.5 MG TABS 1 tablet every 6 hrs prn XANAX 0.5 MG TABS 328590 ALPRAZOLAM Inactive AUGMENTIN 875-125 MG TAB 1 tab by mouth twice daily with food AUGMENTIN 875-125 MG TAB 730847 AMOXICILLIN-POT CLAVULANATE Inactive ALPRAZOLAM 0.5 MG TABS 1 tab every 6hrs as needed ALPRAZOLAM 0.5 MG TABS 523315 ALPRAZOLAM Inactive SPIRONOLACTONE 25 MG TAB 0.5 tablet by mouth daily SPIRONOLACTONE 25 MG TAB 798580 SPIRONOLACTONE Inactive ACCU-CHEK KEYONA PLUS W/DEVICE KIT Use for testing bloodsugars three times daily as needed ACCU-CHEK KEYONA PLUS W/DEVICE KIT BLOOD GLUCOSE MONITORING SUPPL Inactive ACCU-CHEK KEYONA PLUS STRP Use for testing bloodsugars three times daily as needed ACCU-CHEK KEYONA PLUS STRP GLUCOSE BLOOD Inactive ACCU-CHEK FASTCLIX LANCETS MIS Use to check bloodsugar three times daily as needed [id number] L[facility] Inactive TRAMADOL HCL 50 MG TABS 1 tablets every 6 hours as needed for pain TRAMADOL HCL 50 MG TABS 656556 TRAMADOL HCL Inactive VENLAFAXINE HCL 75 MG TABS 1 po BID VENLAFAXINE HCL 75 MG TABS 773604 VENLAFAXINE HCL Inactive HYDROCODONE-ACETAMINOPHEN 5-500 MG TABS take one po Q 4-6 hours prn HYDROCODONE-ACETAMINOPHEN 5-500 MG TABS HYDROCODONE- ACETAMINOPHEN Inactive LORTAB 5 5-500 MG TABS 1/2 to 1 tablet by mouth every 4 hours as needed for pain LORTAB 5 5-500 MG TABS HYDROCODONE- ACETAMINOPHEN Inactive LAMISIL 250 MG TAB 1 po qd LAMISIL 250 MG TAB 779399 TERBINAFINE HCL Inactive VENLAFAXINE HCL 37.5 MG TABS 1 po BID VENLAFAXINE HCL 37.5 MG TABS 624148 VENLAFAXINE HCL Inactive CIPRO 500 MG TAB 1 tablet by mouth twice daily CIPRO 500 MG TAB 773690 CIPROFLOXACIN HCL Inactive VENLAFAXINE HCL 75 MG TABS 1 po BID VENLAFAXINE HCL 75 MG TABS 842221 VENLAFAXINE HCL Inactive SIMVASTATIN 40 MG TABS Take one by mouth daily SIMVASTATIN 40 MG TABS 874751 SIMVASTATIN Inactive OMEPRAZOLE 20 MG TBEC 1 PO 30 MIN BEFORE 1ST MEAL OMEPRAZOLE 20 MG TBEC 980173 OMEPRAZOLE Inactive FENOFIBRATE 145 MG TABS 1 po qd FENOFIBRATE 145 MG TABS 817792 FENOFIBRATE Inactive BACTRIM DS 800-160 MG TABS 1 bid x 14 day start 09-28-13 BACTRIM DS 800-160 MG TABS 043349 SULFAMETHOXAZOLE-TRIMETHOPRIM Inactive B-12 100 MCG TABS Take one by mouth daily B-12 100 MCG TABS CYANOCOBALAMIN Inactive GABAPENTIN 100 MG CAPS 1 po bid GABAPENTIN 100 MG CAPS 853136 GABAPENTIN Inactive HYDROCODONE-ACETAMINOPHEN 5-325 MG TABS 1 tab by mouth every 6 hours as needed for pain HYDROCODONE-ACETAMINOPHEN 5-325 MG TABS 681681 HYDROCODONE-ACETAMINOPHEN Inactive CIPRO 500 MG TABS 1 bid x 14 days start 09-28-13 CIPRO 500 MG TABS 308166 CIPROFLOXACIN HCL Inactive ALIGN 4 MG CAPS [...] as needed DICLOFENAC SODIUM 50 MG TBEC 650872 DICLOFENAC SODIUM Inactive PREDNISONE 20 MG TAB 2 tablets once daily for 2 days, then 1 tablet once daily for 2 days PREDNISONE 20 MG TAB 149339 PREDNISONE Inactive TRUEDRAW LANCING DEVICE MISC Test [...] at bedtime prn REQUIP 2 MG TABS 719264 ROPINIROLE HCL Inactive TRIAMCINOLONE ACETONIDE 0.1 % OINT Apply to affected areas TID for up to 2 weeks TRIAMCINOLONE ACETONIDE 0.1 % OINT 2879497 TRIAMCINOLONE ACETONIDE Inactive PREDNISONE 20 MG TAB 2 tabs daily for 3 days, 1 tab daily for 3 days, 1/2 tab daily for 2 days PREDNISONE 20 MG TAB 181488 PREDNISONE Inactive PREDNISONE 20 MG TAB 2 tabs daily for 3 days, 1 tab daily for 3 days, 1/2 tab daily for 2 days PREDNISONE 20 MG TAB 473204 PREDNISONE Inactive BACTRIM DS 800-160 MG TABS 1 po BID x 7 days BACTRIM DS 800-160 MG TABS 014534 SULFAMETHOXAZOLE-TRIMETHOPRIM Inactive ZITHROMAX 250 MG TAB 2 po today, then 1 po q days 2-5 ZITHROMAX 250 MG TAB 3711269 AZITHROMYCIN Inactive Advance Directives Directive Description Start Date DISCUSSED WITH PATIENT -- NO DECISION MADE Immunizations Vaccine Administration Date Value Standard Description Seasonal influenza vaccine, injectable, containing preservative, for > 3 years old (Afluria, FluLaval, Fluzone, Fluvirin, Fluarix, Agriflu(>=18 yo)) Fluzone (>3 yrs.) [VMQ601] Influenza, seasonal, injectable influenza immunization (Flu Vax) has been administered 02/22/2012 influenza virus vaccine, unspecified formulation Seasonal influenza vaccine, injectable, containing preservative, for > 3 years old (Afluria, FluLaval, Fluzone, Fluvirin, Fluarix, Agriflu(>=18 yo)) Fluzone (>3 yrs.) [ZQJ155] Influenza, seasonal, injectable Vital Signs Date Name [...] Magnesium - Chemistry sodium, serum 143 mmol/L 166-588 1215/01/10 carbon dioxide, venous blood 28.0 mmol/L 21.0-32.0 potassium, serum 4.5 mmol/L 3.5-5.2 chloride, serum 104 mmol/L 98-107 blood glucose 158 mg/dL 65-110 urea nitrogen, blood 23 mg/dL 7-18 creatinine, serum 1.06 mg/dL 0.55-1.30 alanine aminotransferase (SGPT), serum 42 U/L 12-78 aspartate aminotransferase (SGOT), serum 32 U/L 15-37 calcium, serum 9.3 mg/dL 8.5-10.1 bilirubin, serum, total 0.20 mg/dL 0.00-1.00 cholesterol, serum 177 mg/dL 852-191 6813/01/10 triglyceride, serum, fasting 320 mg/dL 30-200 HDL cholesterol, serum 46 mg/dL 32-96 LDL cholesterol, serum 67 mg/dL 0-130 Lab Report: HGBA1C - Chemistry hemoglobin A1C, blood, as % of total hemoglobin 7.7 % 4.3-6.0 hemoglobin A1C, blood, as % of total hemoglobin 7.1 % 4.3-6.0 hemoglobin A1C, blood, as % of total hemoglobin 7.4 % 4.3-6.0 sodium, serum 140 mmol/L 640-433 2206/09/07 potassium, serum 4.3 mmol/L 3.5-5.2 chloride, serum 104 mmol/L 98-107 carbon dioxide, venous blood 27.7 mmol/L 21.0-32.0 blood glucose 156 mg/dL 65-110 calcium, serum 9.3 mg/dL 8.5-10.1 urea nitrogen, blood 23 mg/dL 7-18 creatinine, serum 1.21 mg/dL 0.55-1.30 Lab Report: Lipid Panel, Comp. Metabolic Panel - Chemistry cholesterol, serum 124 mg/dL 537-995 3263/01/12 triglyceride, serum, fasting 135 mg/dL 30-200 HDL cholesterol, serum 41 mg/dL 32-96 LDL cholesterol, serum 56 mg/dL 0-130 sodium, serum 140 mmol/L 550-072 7429/01/12 carbon dioxide, venous blood 27.7 mmol/L 21.0-32.0 [...] <30 Encounters Code Encounter Date Provider Facility CPT-28912 Level 4 Est. Patient 14:40:19 CDT Tu Landeros MD [facility] CPT-28974 Level 4 Est. Patient 14:06:04 DRESS FINISHER Tu Landeros MD [facility] CPT-09966 Level 3 Est. Patient 14:05:18 DRESS FINISHER Tu Landeros MD [facility] CPT-09391 Level 3 Est. Patient 10:06:54 DRESS FINISHER Miranda Suresh APRN [facility] CPT-66923 Level 4 Est. Patient 13:50:18 DRESS FINISHER Tu Landeros MD [facility] CPT-01637 Level 3 Est. Patient 10:30:04 CDT Tu Landeros MD [facility] CPT-96074 Level 4 Est. Patient 11:03:38 CDT Tu Landeros MD [facility] CPT-33837 Level 3 Est. Patient 10:20:44 CDT Fab Morales DO [facility] CPT-45984 Level 4 Est. Patient 14:38:57 CDT Tu Landeros MD [facility] CPT-12280 Level 4 Est. Patient 14:27:39 DRESS FINISHER Tu Landeros MD [facility] CPT-29671 Level 4 Est. Patient 09:45:25 CDT Tu Landeros MD [facility] CPT-41585 Level 4 Est. Patient 09:05:20 DRESS FINISHER Tu Landeros MD [facility] CPT-04410 Level 4 Est. Patient 14:09:06 CDT Tu Landeros MD [facility] CPT-46180 Level 3 Est. Patient 13:36:54 CDT Tu Landeros MD [facility] CPT-27474 Level 3 Est. Patient 08:59:14 CDT Tu Landeros MD [facility] CPT-81029 Level 3 Est. Patient 13:48:35 CDT Fab Morales DO [facility] CPT-43658 Level 4 Est. Patient 10:05:48 CDT Tu Landeros MD [facility] CPT-49620 Level 3 Est. Patient 13:38:42 CDT Marek BANKS [facility] CPT-25049 Level 5 Est. Patient 08:08:39 CDT Jerrica FRANCIS [facility] CPT-76621 Level 4 Est. Patient 14:23:38 CDT Tu Landeros MD [facility] CPT-20718 Level 3 Est. Patient 11:44:04 CDT Tu Landeros MD [facility] CPT-88139 Level 3 Est. Patient 11:03:20 DRESS FINISHER Tu Landeros MD [facility] CPT-78884 Level 3 Est. Patient 11:03:14 DRESS FINISHER Tu Landeros MD [facility] CPT-65578 Level 3 Est. Patient 12:42:49 CDT Tu Landeros MD [facility] CPT-38747 Level 3 Est. Patient 11:52:06 CDT Tu Landeros MD [facility] CPT-78182 Level 3 Est. Patient 13:58:11 CDT Tu Landeros MD [facility] CPT-68997 Level 3 Est. Patient 17:50:07 CDT Fab Morales DO [facility] CPT-92826 Level 3 Est. Patient 12:06:29 CDT Elvira Cervantes MD [facility] CPT-75003 Level 3 Est. Patient 15:50:32 CDT Tu Landeros MD [facility] CPT-77645 Level 4 Est. Patient 16:08:29 CDT Tu Landeros MD [facility] CPT-97485 Level 3 Est. Patient 16:04:19 CDT Tu Landeros MD [facility] CPT-41406 Level 3 Est. Patient 11:22:30 DRESS FINISHER Tu Landeros MD [facility] CPT-26477 Level 4 Est. Patient 16:24:02 DRESS FINISHER Tu Landeros MD [facility] CPT-13147 Level 3 Est. Patient 17:21:23 DRESS FINISHER Tu Landeros MD [facility] Procedures Code Procedure Name Date Entry Date Standard Description CPT-37012 Magnesium - LAB USE ONLY 11:14:20 DRESS FINISHER CPT-46674 Lipid - LAB USE ONLY 11:14:20 DRESS FINISHER CPT-15102 HGBA1C - LAB USE ONLY 11:14:20 DRESS FINISHER CPT-54463 CMP - LAB USE ONLY 11:14:19 DRESS FINISHER CPT-56643 CBC - LAB USE ONLY 11:14:19 DRESS FINISHER CPT-65494 Venipuncture Draw Fee 11:14:18 DRESS FINISHER CPT-61460 First Vx - Ix admin for Medicare patients 16:46:52 CDT CPT-26477 Fluzone Preservative Free Intramuscular Suspension 16:46 :51 CDT CPT-54919 CBC - LAB USE ONLY 17:14:46 CDT CPT-83568 HGBA1C - LAB USE ONLY 17:14:46 CDT CPT-71783 Venipuncture Draw Fee 17:14:46 CDT CPT-G0438 Initial Annual Wellness Exam 14:13:04 CDT CPT-80220 Breathing Tx 10:06:54 DRESS FINISHER CPT-28455 Postop F/U Visit 10:02:45 CDT CPT-LR Lesion Removal 09:02:56 CDT CPT-JTINJ Asp/Joint Injection 15:51:27 DRESS FINISHER CPT-OV Office Visit 15:52:02 DRESS FINISHER CPT-OV Office Visit 15:45:11 CDT CPT-000 Give Zostavax 14:09:06 CDT CPT-50602 Administration single or combination vaccine inc oral 15 :19:04 CDT CPT-29472 Zoster Vaccine (Zostavax) 15:19:04 CDT CPT-61069 Administration single or combination vaccine inc oral 20 :51:03 CDT CPT-14088 Influenza split virus > age 3 20:51:03 CDT CPT-63503 No Charge Offi Visit 14:52:03 CDT CPT-OV Office Visit 14:57:43 CDT CPT-OV Office Visit 15:22:32 CDT CPT-00496 Administration single or combination vaccine inc oral 11 :33:15 CDT CPT-89549 Influenza split virus > age 3 11:33:15 CDT
--- OUTSIDE RECORDS SUMMARY | 2018-04-25 17:40 | XMS REPORT | Clinical Summary ---
Author Author Admin, SACHI Organization [employer] Address Unknown Phone Unavailable Allergies, Adverse Reactions, [...] classified HYPERLIPIDEMIA, OTHER UNSPECIFIED 272.4 Inactive Tu Lnaderos MD Other and unspecified hyperlipidemia Hyperlipidemia 272.4 [...] FATIGUE ICD-780.79 Inactive Tu Landeros MD 2012 SHOULDER PAIN, LEFT ICD-719.41 Inactive Tu Landeros MD KNEE PAIN ICD-719.46 Inactive Tu Landeros MD ARTHRITIS ICD-716.90 Inactive Tu Landeros MD CARPAL TUNNEL SYNDROME ICD-354.0 Inactive Tu Landeros MD LOCALIZED SUPERFICIAL SWELLING MASS OR LUMP ICD-782.2 Tessa Landeros MD CONTUSION OF UNSPECIFIED SITE ICD-924.9 Inactive Tu Landeros MD ONYCHOMYCOSIS ICD-110.1 Tessa [...] Tu Landeros MD Sebaceous cyst ICD-706.2 Inactive uT Landeros MD Upper respiratory infection, [...] blood sugar BID Dx: E11.9 GLUCOSE BLOOD 72882011001 Active Tu Landeros MD Active TRUE METRIX AIR GLUCOSE METER W/DEVICE KIT Test blood glucose BID Dx: E11.9 BLOOD GLUCOSE MONITORING SUPPL 79948211480 Active Tu Landeros MD Active TRUETEST TEST INVITR STRP test blood sugar twice daily. DX 250.0 GLUCOSE BLOOD 67030047900 No Longer Active Mirna Stanley LPN Active TRUEDRAW LANCING DEVICE MISC test blood sugar twice daily dx: 250.00 LANCET DEVICES 91581260961 No Longer Active Mirna Stanley LPN Active ENALAPRIL MALEATE 20 MG TABS 2 po qd ENALAPRIL MALEATE 21057285742 Active Tu Landeros MD Active SUPER B COMPLEX/VITAMIN C TABS 1 qd B COMPLEX-C 12051509697 No Longer Active Tu Landeros MD Active ASPIRIN EC 81 MG ORAL TBEC 1 po qd ASPIRIN 67494289879 Active Tu Landeros MD Active GLUCOSAMINE 500 MG TABS 2 po qd GLUCOSAMINE Active Tu Landeros MD Active SIMVASTATIN 40 MG TABS 0.5 po qHS SIMVASTATIN 49952915381 Active Tu Landeros MD Active FISH OIL 1000 MG CAPS 1 po qd OMEGA-3 FATTY ACIDS 45429598464 Active Tu Landeros MD Active METFORMIN HCL 1000 MG TABS 1 po BID METFORMIN HCL 82398268429 Active Tu Landeros MD Active KLOR-CON 10 10 MEQ CR-TABS 2 po qd POTASSIUM CHLORIDE 51126248174 Active Tu Landeros MD Active FUROSEMIDE 40 MG TAB 1 po qd FUROSEMIDE 56028970893 Active Tu Landeros MD Active REQUIP 2 MG ORAL TABS 1 po qHS PRN Restless legs ROPINIROLE HCL 05720370356 Active Tu Landeros MD Active VENLAFAXINE HCL 37.5 MG TABS 1 po BID VENLAFAXINE HCL 29641427581 Active Tu Landeros MD Active GABAPENTIN 100 MG CAPS 1 po BID GABAPENTIN 94536956532 Active Tu Landeros MD Active REQUIP 2 MG TABS Take one tablet at bedtime prn ROPINIROLE HCL 40654953829 No Longer Active Tu Landeros MD Active VENTOLIN HFA 108 (90 BASE) MCG/ACT AERS 1-2 puffs every 4 hours if needed for cough/congestion ALBUTEROL SULFATE 50839184723 No Longer Active Ambika Aden APRN Active ZITHROMAX 250 MG TAB 2 po today, then 1 po q days 2-5 AZITHROMYCIN 93353331295 No Longer Active Miranda Suresh APRN Active FLONASE 50 MCG/ACT SUSP 1 spray each nostril twice daily until bottle empty FLUTICASONE PROPIONATE 24958278792 No Longer Active Tu Landeros MD Active COLACE 100 MG CAP 1 po BID PRN Constipation DOCUSATE SODIUM 04649780482 Active Tu Landeros MD Active TRUERESULT BLOOD GLUCOSE W/DEVICE KIT test blood sugar twice daily dx 250.00 BLOOD GLUCOSE MONITORING SUPPL 90948900137 No Longer Active Tu Landeros MD Active TRUEDRAW LANCING DEVICE MISC Test twice a day dx 250.0 LANCET DEVICES 76815517205 No Longer Active Tu Landeros MD Active PREDNISONE 20 MG TAB 2 tablets once daily for 2 days, then 1 tablet once daily for 2 days PREDNISONE 14860485182 No Longer Active Tu Landeros MD Active DICLOFENAC SODIUM 50 MG TBEC 1 tablet by mouth three times a day as needed DICLOFENAC SODIUM 83933969167 No Longer Active Fab Morales DO Active EMBRACE BLOOD GLUCOSE TEST STRP test blood sugar twice daily DX 250.0 2014 GLUCOSE BLOOD 57356451648 No Longer Active Tu Landeros MD Active TRUETEST TEST STRP test blood sugar three times daily dx: 250.00 GLUCOSE BLOOD 70599382737 No Longer Active Suzebianca VOGEL Active TRUERESULT BLOOD GLUCOSE W/DEVICE KIT use to test blood sugar tid dx: 250.00 BLOOD GLUCOSE MONITORING SUPPL 91576576155 No Longer Active Suze VOGEL Active ALIGN 4 MG CAPS 1 tid PROBIOTIC PRODUCT 73785002272 No Longer Active Shaun Sy MD Active CIPRO 500 MG TABS 1 bid x 14 days start 09-28-13 CIPROFLOXACIN HCL 70529609626 No Longer Active Shaun Sy MD Active TRAMADOL HCL 50 MG TABS 1-2 tablets every 6 hours as needed for pain TRAMADOL HCL 12596119429 Active JASPREET Moffett Active HYDROCODONE-ACETAMINOPHEN 5-325 MG TABS 1 tab by mouth every 6 hours as needed for pain HYDROCODONE-ACETAMINOPHEN 52746140363 No Longer Active Tu Landeros MD Active OMEPRAZOLE 20 MG CPDR 1 po q a.m. OMEPRAZOLE 32571402168 Active Tu Landeros MD Active GABAPENTIN 100 MG CAPS 1 po bid GABAPENTIN 41130481742 No Longer Active Tu Landeros MD Active B-12 100 MCG TABS Take one by mouth daily CYANOCOBALAMIN 69749263311 No Longer Active Tu Landeros MD Active BACTRIM DS 800-160 MG TABS 1 bid x 14 day start 09-28-13 SULFAMETHOXAZOLE-TRIMETHOPRIM 99487777126 No Longer Active Tu Landeros MD Active CARVEDILOL 12.5 MG TABS 1 po BID CARVEDILOL 96406341599 Active Tu Landeros MD Active TRILIPIX 135 MG CPDR 1 q hs CHOLINE FENOFIBRATE 84768297107 Active Tu Landeros MD Active FENOFIBRATE 145 MG TABS 1 po qd FENOFIBRATE 61565591137 No Longer Active JASPREET Perez Active OMEPRAZOLE 20 MG TBEC 1 PO 30 MIN BEFORE 1ST MEAL OMEPRAZOLE 58842125690 No Longer Active JASPREET Perez Active SIMVASTATIN 40 MG TABS Take one by mouth daily SIMVASTATIN 91782513011 No Longer Active JASPREET Perez Active VENLAFAXINE HCL 75 MG TABS 1 po BID VENLAFAXINE HCL 98579877482 No Longer Active JASPREET Perez Active CIPRO 500 MG TAB 1 tablet by mouth twice daily CIPROFLOXACIN HCL 33974706019 No Longer Active Tu Landeros MD Active VENLAFAXINE HCL 37.5 MG TABS 1 po BID VENLAFAXINE HCL 80624264000 No Longer Active Suzebianca NUNOA Active LAMISIL 250 MG TAB 1 po qd TERBINAFINE HCL 57396835159 No Longer Active Tu Landeros MD Active LORTAB 5 5-500 MG TABS 1/2 to 1 tablet by mouth every 4 hours as needed for pain HYDROCODONE-ACETAMINOPHEN 67681416686 No Longer Active Tu Landeros MD Active HYDROCODONE-ACETAMINOPHEN 5-500 MG TABS take one po Q 4-6 hours prn HYDROCODONE-ACETAMINOPHEN 12460538007 No Longer Active Tu Landeros MD Active BACTRIM DS 800-160 MG TABS 1 po BID x 7 days SULFAMETHOXAZOLE-TRIMETHOPRIM 64661490146 No Longer Active Tu Landeros MD Active VENLAFAXINE HCL 75 MG TABS 1 po BID VENLAFAXINE HCL 60804899265 No Longer Active Elvira Cervantes MD PhD Active TRAMADOL HCL 50 MG TABS 1 tablets every 6 hours as needed for pain TRAMADOL HCL 79647396070 No Longer Active Tu Landeros MD Active ACCU-CHEK FASTCLIX LANCETS MISC Use to check bloodsugar three times daily as needed LANCETS 85520138937 No Longer Active Tu Landeros MD Active ACCU-CHEK KEYONA PLUS STRP Use for testing bloodsugars three times daily as needed GLUCOSE BLOOD 42548160624 No Longer Active Tu Landeros MD Active ACCU-CHEK KEYONA PLUS W/DEVICE KIT Use for testing bloodsugars three times daily as needed BLOOD GLUCOSE MONITORING SUPPL 98103958539 No Longer Active Tu Landeros MD Active SPIRONOLACTONE 25 MG TAB 0.5 tablet by mouth daily SPIRONOLACTONE 20668196411 No Longer Active Tu Landeros MD Active ALPRAZOLAM 0.5 MG TABS 1 tab every 6hrs as needed ALPRAZOLAM 55615548920 No Longer Active Tu Landeros MD Active AUGMENTIN 875-125 MG TAB 1 tab by mouth twice daily with food AMOXICILLIN-POT CLAVULANATE 52804469473 No Longer Active uT Landeros MD Active PREDNISONE 20 MG TAB 2 tabs daily for 3 days, 1 tab daily for 3 days, 1/2 tab daily for 2 days PREDNISONE 52718751938 No Longer Active Tu Landeros MD Active XANAX 0.5 MG TABS 1 tablet every 6 hrs prn ALPRAZOLAM 72320780085 No Longer Active Tu Lnaderos MD Active PREDNISONE 20 MG TAB 2 tabs daily for 3 days, 1 tab daily for 3 days, 1/2 tab daily for 2 days PREDNISONE 93739125141 No Longer Active Tu Landeros MD Active TRIAMCINOLONE ACETONIDE 0.1 % OINT Apply to affected areas TID for up to 2 weeks TRIAMCINOLONE ACETONIDE 12721336786 No Longer Active Tu Landeros MD Active LORTAB 5 5-500 MG TABS 1/2 to 1 tablet by mouth every 4 hours as needed for pain HYDROCODONE-ACETAMINOPHEN 95549370582 No Longer Active Tu Landeros MD Active MULTIVITAMINS TABS Take one by mouth daily MULTIPLE VITAMIN 38250142720 No Longer Active Tu Landeros MD Active MELATONIN 5 MG TABS Take one by mouth daily MELATONIN 13754386360 No Longer Active Tu Landeros MD Active SOMA 350 MG TAB 1 po q 6 hours prn spasm CARISOPRODOL 12245344355 No Longer Active Tu Landeros MD Active MECLIZINE HCL 25 MG CHEW TAB 1 four times a day as needed for dizziness 08/05 MECLIZINE HCL 08838015530 No Longer Active Fab Morales DO Active ANGEL BREEZE 2 TEST DISK test tid prn GLUCOSE BLOOD 58682683302 No Longer Active Negra Scott RN Active REGLAN 10 MG TAB 1 po TID PRN Nausea METOCLOPRAMIDE HCL 25773170790 No Longer Active Tu Landeros MD Active METFORMIN HCL 500 MG TABS 1 PO BID METFORMIN HCL 35525158641 No Longer Active Tu Landeros MD Active AMBIEN 10 MG TAB 1 tab by mouth at bedtime as needed for sleep ZOLPIDEM TARTRATE 87246824830 No Longer Active Tu Landeros MD Active FLUOXETINE HCL 40 MG CAPS 1 po q day FLUOXETINE HCL 93949119605 No Longer Active Mayra Terry Active TRILIPIX 135 MG CPDR 1 po qd CHOLINE FENOFIBRATE 55912291235 No Longer Active Tu Landeros MD Active AMBIEN 10 MG TAB 1 tab by mouth at bedtime as needed for sleep AMBIEN 10 MG TAB 041491 ZOLPIDEM TARTRATE Inactive METFORMIN HCL 500 MG TABS 1 PO BID METFORMIN HCL 500 MG TABS 993507 METFORMIN HCL Inactive REGLAN 10 MG TAB 1 po TID PRN Nausea REGLAN 10 MG TAB 100646 METOCLOPRAMIDE HCL Inactive MECLIZINE HCL 25 MG CHEW TAB 1 four times a day as needed for dizziness 08/05 MECLIZINE HCL 25 MG CHEW TAB 218703 MECLIZINE HCL Inactive SOMA 350 MG TAB 1 po q 6 hours prn spasm SOMA 350 MG TAB 842067 CARISOPRODOL Inactive MELATONIN 5 MG TABS Take one by mouth daily MELATONIN 5 MG TABS 508930 MELATONIN Inactive MULTIVITAMINS TABS Take one by mouth daily MULTIVITAMINS TABS MULTIPLE VITAMIN Inactive LORTAB 5 5-500 MG TABS 1/2 to 1 tablet by mouth every 4 hours as needed for pain LORTAB 5 5-500 MG TABS HYDROCODONE- ACETAMINOPHEN Inactive XANAX 0.5 MG TABS 1 tablet every 6 hrs prn XANAX 0.5 MG TABS 822922 ALPRAZOLAM Inactive AUGMENTIN 875-125 MG TAB 1 tab by mouth twice daily with food AUGMENTIN 875-125 MG TAB 068221 AMOXICILLIN-POT CLAVULANATE Inactive ALPRAZOLAM 0.5 MG TABS 1 tab every 6hrs as needed ALPRAZOLAM 0.5 MG TABS 404343 ALPRAZOLAM Inactive SPIRONOLACTONE 25 MG TAB 0.5 tablet by mouth daily SPIRONOLACTONE 25 MG TAB 091365 SPIRONOLACTONE Inactive ACCU-CHEK KEYONA PLUS W/DEVICE KIT Use for testing bloodsugars three times daily as needed ACCU-CHEK KEYONA PLUS W/DEVICE KIT BLOOD GLUCOSE MONITORING SUPPL Inactive ACCU-CHEK KEYONA PLUS STRP Use for testing bloodsugars three times daily as needed ACCU-CHEK KEYONA PLUS STRP GLUCOSE BLOOD Inactive ACCU-CHEK FASTCLIX LANCETS MISC Use to check bloodsugar three times daily as needed ACCU-CHEK FASTCLIX LANCETS MISC 01241104259 LANCETS Inactive TRAMADOL HCL 50 MG TABS 1 tablets every 6 hours as needed for pain TRAMADOL HCL 50 MG TABS 670821 TRAMADOL HCL Inactive VENLAFAXINE HCL 75 MG TABS 1 po BID VENLAFAXINE HCL 75 MG TABS 289829 VENLAFAXINE HCL Inactive HYDROCODONE-ACETAMINOPHEN 5-500 MG TABS take one po Q 4-6 hours prn HYDROCODONE-ACETAMINOPHEN 5-500 MG TABS HYDROCODONE- ACETAMINOPHEN Inactive LORTAB 5 5-500 MG TABS 1/2 to 1 tablet by mouth every 4 hours as needed for pain LORTAB 5 5-500 MG TABS HYDROCODONE- ACETAMINOPHEN Inactive LAMISIL 250 MG TAB 1 po qd LAMISIL 250 MG TAB 448558 TERBINAFINE HCL Inactive VENLAFAXINE HCL 37.5 MG TABS 1 po BID VENLAFAXINE HCL 37.5 MG TABS 912763 VENLAFAXINE HCL Inactive CIPRO 500 MG TAB 1 tablet by mouth twice daily CIPRO 500 MG TAB 438421 CIPROFLOXACIN HCL Inactive VENLAFAXINE HCL 75 MG TABS 1 po BID VENLAFAXINE HCL 75 MG TABS 117930 VENLAFAXINE HCL Inactive SIMVASTATIN 40 MG TABS Take one by mouth daily SIMVASTATIN 40 MG TABS 090319 SIMVASTATIN Inactive OMEPRAZOLE 20 MG TBEC 1 PO 30 MIN BEFORE 1ST MEAL OMEPRAZOLE 20 MG TBEC 332601 OMEPRAZOLE Inactive FENOFIBRATE 145 MG TABS 1 po qd FENOFIBRATE 145 MG TABS 338665 FENOFIBRATE Inactive BACTRIM DS 800-160 MG TABS 1 bid x 14 day start 09-28-13 BACTRIM DS 800-160 MG TABS 480542 SULFAMETHOXAZOLE-TRIMETHOPRIM Inactive B-12 100 MCG TABS Take one by mouth daily B-12 100 MCG TABS CYANOCOBALAMIN Inactive GABAPENTIN 100 MG CAPS 1 po bid GABAPENTIN 100 MG CAPS 669358 GABAPENTIN Inactive HYDROCODONE-ACETAMINOPHEN 5-325 MG TABS 1 tab by mouth every 6 hours as needed for pain HYDROCODONE-ACETAMINOPHEN 5-325 MG TABS 488112 HYDROCODONE-ACETAMINOPHEN Inactive CIPRO 500 MG TABS 1 bid x 14 days start 09-28-13 CIPRO 500 MG TABS 245995 CIPROFLOXACIN HCL Inactive ALIGN 4 MG CAPS [...] SODIUM 50 MG [facility] 107907 DICLOFENAC SODIUM Inactive PREDNISONE 20 MG TAB 2 tablets once daily for 2 days, then 1 tablet once daily for 2 days PREDNISONE 20 MG TAB 833857 PREDNISONE Inactive TRUEDRAW LANCING DEVICE MISC Test [...] at bedtime prn REQUIP 2 MG TABS 629666 ROPINIROLE HCL Inactive SUPER B COMPLEX/VITAMIN C TABS 1 qd SUPER B COMPLEX/ VITAMIN C TABS 37589940724 B COMPLEX-C Inactive TRUEDRAW LANCING DEVICE MISC test blood sugar twice daily dx: 250.00 TRUEDRAW LANCING DEVICE MISC LANCET DEVICES Inactive TRUETEST TEST INVITR STRP test blood sugar twice daily. DX 250.0 TRUETEST TEST INVITR STRP GLUCOSE BLOOD Inactive TRIAMCINOLONE ACETONIDE 0.1 % OINT Apply to affected areas TID for up to 2 weeks TRIAMCINOLONE ACETONIDE 0.1 % OINT 1063116 TRIAMCINOLONE ACETONIDE Inactive PREDNISONE 20 MG TAB 2 tabs daily for 3 days, 1 tab daily for 3 days, 1/2 tab daily for 2 days PREDNISONE 20 MG TAB 388719 PREDNISONE Inactive PREDNISONE 20 MG TAB 2 tabs daily for 3 days, 1 tab daily for 3 days, 1/2 tab daily for 2 days PREDNISONE 20 MG TAB 838558 PREDNISONE Inactive BACTRIM DS 800-160 MG TABS 1 po BID x 7 days BACTRIM DS 800-160 MG TABS 525113 SULFAMETHOXAZOLE-TRIMETHOPRIM Inactive ZITHROMAX 250 MG TAB 2 po today, then 1 po q days 2-5 ZITHROMAX 250 MG TAB 4268631 AZITHROMYCIN Inactive Advance Directives Directive Description Start Date DISCUSSED WITH PATIENT -- NO DECISION MADE Immunizations Vaccine Administration Date Value Standard Description Seasonal influenza vaccine, injectable, containing preservative, for > 3 years old (Afluria, FluLaval, Fluzone, Fluvirin, Fluarix, Agriflu(>=18 yo)) Fluzone (>3 yrs.) [[id number]] Influenza, seasonal, injectable influenza immunization (Flu Vax) has been administered 02/22/2012 influenza virus vaccine, unspecified formulation Seasonal influenza vaccine, injectable, containing preservative, for > 3 years old (Afluria, FluLaval, Fluzone, Fluvirin, Fluarix, Agriflu(>=18 yo)) Fluzone (>3 yrs.) [[id number]] Influenza, seasonal, injectable Vital Signs Date Name [...] Magnesium - Chemistry sodium, serum 143 mmol/L 170-628 6663/01/10 carbon dioxide, venous blood 28.0 mmol/L 21.0-32.0 potassium, serum 4.5 mmol/L 3.5-5.2 chloride, serum 104 mmol/L 98-107 blood glucose 158 mg/dL 65-110 urea nitrogen, blood 23 mg/dL 7-18 creatinine, serum 1.06 mg/dL 0.55-1.30 alanine aminotransferase (SGPT), serum 42 U/L 12-78 aspartate aminotransferase (SGOT), serum 32 U/L 15-37 calcium, serum 9.3 mg/dL 8.5-10.1 bilirubin, serum, total 0.20 mg/dL 0.00-1.00 cholesterol, serum 177 mg/dL 954-942 6963/01/10 triglyceride, serum, fasting 320 mg/dL 30-200 HDL cholesterol, serum 46 mg/dL 32-96 LDL cholesterol, serum 67 mg/dL 0-130 Lab Report: HGBA1C - Chemistry hemoglobin A1C, blood, as % of total hemoglobin 7.1 % 4.3-6.0 hemoglobin A1C, blood, as % of total hemoglobin 7.4 % 4.3-6.0 sodium, serum 140 mmol/L 225-325 0846/09/07 potassium, serum 4.3 mmol/L 3.5-5.2 chloride, serum [...] <30 Encounters Code Encounter Date Provider Facility CPT-69243 Level 4 Est. Patient 09:08:17 [employer] Tu Landeros MD [facility] CPT-89903 Level 4 Est. Patient 14:40:19 CDT Tu Landeros MD [facility] CPT-75173 Level 4 Est. Patient 14:06:04 [employer] Tu Landeros MD [facility] CPT-81383 Level 3 Est. Patient 14:05:18 [employer] Tu Landeros MD [facility] CPT-55817 Level 3 Est. Patient 10:06:54 [employer] Miranda Suresh APRN [facility] CPT-18878 Level 4 Est. Patient 13:50:18 [employer] Tu Lnaderos MD [facility] CPT-43387 Level 3 Est. Patient 10:30:04 CDT Tu Landeros MD [facility] CPT-26812 Level 4 Est. Patient 11:03:38 CDT Tu Landeros MD [facility] CPT-82004 Level 3 Est. Patient 10:20:44 CDT aFb Morales DO [facility] CPT-28527 Level 4 Est. Patient 14:38:57 CDT Tu Landeros MD [facility] CPT-83400 Level 4 Est. Patient 14:27:39 [employer] Tu Landeros MD [facility] CPT-14392 Level 4 Est. Patient 09:45:25 CDT Tu Landeros MD [facility] CPT-71036 Level 4 Est. Patient 09:05:20 [employer] Tu Landeros MD [facility] CPT-13346 Level 4 Est. Patient 14:09:06 CDT Tu Landeros MD [facility] CPT-20920 Level 3 Est. Patient 13:36:54 CDT Tu Landeros MD [facility] CPT-66395 Level 3 Est. Patient 08:59:14 CDT Tu Landeros MD [facility] CPT-93562 Level 3 Est. Patient 13:48:35 CDT Fab Morales DO [facility] CPT-06573 Level 4 Est. Patient 10:05:48 CDT Tu Landeros MD [facility] CPT-91032 Level 3 Est. Patient 13:38:42 CDT Marek BANKS [facility] CPT-55487 Level 5 Est. Patient 08:08:39 CDT Jerrica FRANCIS [facility] CPT-06952 Level 4 Est. Patient 14:23:38 CDT Tu Landeros MD [facility] CPT-34819 Level 3 Est. Patient 11:44:04 CDT Tu Landeros MD [facility] CPT-66675 Level 3 Est. Patient 11:03:20 [employer] Tu Landeros MD [facility] CPT-08983 Level 3 Est. Patient 11:03:14 [employer] Tu Landeros MD [facility] CPT-11706 Level 3 Est. Patient 12:42:49 CDT Tu Landeros MD [facility] CPT-10494 Level 3 Est. Patient 11:52:06 CDT Tu Landeros MD [facility] CPT-04814 Level 3 Est. Patient 13:58:11 CDT Tu Landeros MD [facility] CPT-07178 Level 3 Est. Patient 17:50:07 CDT Fab Morales DO [facility] CPT-76653 Level 3 Est. Patient 12:06:29 CDT Elvira Cervantes MD PhD [facility] CPT-96391 Level 3 Est. Patient 15:50:32 CDT Tu Landeros MD [facility] CPT-49475 Level 4 Est. Patient 16:08:29 CDT Tu Landeros MD [facility] CPT-02166 Level 3 Est. Patient 16:04:19 CDT Tu Landeros MD [facility] CPT-83582 Level 3 Est. Patient 11:22:30 [employer] Tu Landeros MD [facility] CPT-70205 Level 4 Est. Patient 16:24:02 [employer] Tu Landeros MD [facility] CPT-67178 Level 3 Est. Patient 17:21:23 [employer] Tu Landeros MD [facility] Procedures Code Procedure Name Date Entry Date Standard Description CPT-85856 Magnesium - LAB USE ONLY 11:14:20 [employer] CPT-39628 Lipid - LAB USE ONLY 11:14:20 [employer] CPT-71058 HGBA1C - LAB USE ONLY 11:14:20 [employer] CPT-10731 CMP - LAB USE ONLY 11:14:19 [employer] CPT-75670 CBC - LAB USE ONLY 11:14:19 [employer] CPT-11054 Venipuncture Draw Fee 11:14:18 [employer] CPT-05444 First Vx - Ix admin for Medicare patients 16:46:52 CDT CPT-08340 Fluzone Preservative Free Intramuscular Suspension 16:46 :51 CDT CPT-38114 CBC - LAB USE ONLY 17:14:46 CDT CPT-44657 HGBA1C - LAB USE ONLY 17:14:46 CDT CPT-68665 Venipuncture Draw Fee 17:14:46 CDT CPT-G0438 Initial Annual Wellness Exam 14:13:04 CDT CPT-36381 Breathing Tx 10:06:54 [employer] CPT-81218 Postop F/U Visit 10:02:45 CDT CPT-LR Lesion Removal 09:02:56 CDT CPT-JTINJ Asp/Joint Injection 15:51:27 [employer] CPT-OV Office Visit 15:52:02 [employer] CPT-OV Office Visit 15:45:11 CDT CPT-000 Give Zostavax 14:09:06 CDT CPT-24823 Administration single or combination vaccine inc oral 15 :19:04 CDT CPT-38277 Zoster Vaccine (Zostavax) 15:19:04 CDT CPT-34204 Administration single or combination vaccine inc oral 20 :51:03 CDT CPT-94713 Influenza split virus > age 3 20:51:03 CDT CPT-53145 No Charge Offi Visit 14:52:03 CDT CPT-OV Office Visit 14:57:43 CDT CPT-OV Office Visit 15:22:32 CDT CPT-25449 Administration single or combination vaccine inc oral 11 :33:15 CDT CPT-48152 Influenza split virus > age 3 11:33:15 CDT
--- OUTSIDE RECORDS SUMMARY | 2018-04-25 17:43 | XMS REPORT | Clinical Summary ---
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 EDGER Moderate or severe vision impairment, both eyes, [...] MASS OR LUMP ICD-782.2 Tessa Landeros MD Open wound of abdominal [...] hours if needed for cough/congestion ALBUTEROL SULFATE [id number] No Longer Active Ambika Aden APRN Active ZITHROMAX 250 MG TAB 2 po today, then 1 po q days 2-5 AZITHROMYCIN 50414156828 No Longer Active Miranda Suresh APRN Active METFORMIN HCL 1000 MG TABS 1 tablet by mouth twice daily METFORMIN HCL 31832926399 Active Tu Landeros MD Active FLONASE 50 MCG/ACT SUSP 1 spray each nostril twice daily until bottle empty FLUTICASONE PROPIONATE 13449466630 No Longer Active Tu Landeros MD Active COLACE 100 MG CAP 1 po BID PRN Constipation DOCUSATE SODIUM 28702331920 Active Tu Landeros MD Active SIMVASTATIN 40 MG TABS 0.5 tab daily at bedtime SIMVASTATIN 90797465231 Active Tu Landeros MD Active TRUERESULT BLOOD GLUCOSE W/DEVICE KIT test blood sugar twice daily dx 250.00 BLOOD GLUCOSE MONITORING SUPPL 90751211246 No Longer Active Tu Landeros MD Active TRUEDRAW LANCING DEVICE MISC Test twice a day dx 250.0 LANCET DEVICES 28919402518 No Longer Active Tu Landeros MD Active PREDNISONE 20 MG TAB 2 tablets once daily for 2 days, then 1 tablet once daily for 2 days PREDNISONE 19476142056 No Longer Active Tu Landeros MD Active DICLOFENAC SODIUM 50 MG TBEC 1 tablet by mouth three times a day as needed DICLOFENAC SODIUM 01043253865 No Longer Active Fab Morales DO Active TRUEDRAW LANCING DEVICE MISC test blood sugar twice daily dx: 250.00 LANCET DEVICES 30358061305 Active Tu Landeros MD Active TRUETEST TEST INVITR STRP test blood sugar twice daily. DX 250.0 GLUCOSE BLOOD 19542175358 Active Tu Landeros MD Active EMBRACE BLOOD GLUCOSE TEST STRP test blood sugar twice daily DX 250.0 2014 GLUCOSE BLOOD 96240367938 No Longer Active Tu Landeros MD Active TRUETEST TEST STRP test blood sugar three times daily dx: 250.00 GLUCOSE BLOOD 26985613326 No Longer Active Suzebianca Nicole RMMahendra Active TRUERESULT BLOOD GLUCOSE W/DEVICE KIT use to test blood sugar tid dx: 250.00 BLOOD GLUCOSE MONITORING SUPPL 47769904685 No Longer Active Suze Corey RMA Active ALIGN 4 MG CAPS 1 tid PROBIOTIC PRODUCT 02094431569 No Longer Active Shaun Sy MD Active CIPRO 500 MG TABS 1 bid x 14 days start 09-28-13 CIPROFLOXACIN HCL 71982042165 No Longer Active Shaun Sy MD Active TRAMADOL HCL 50 MG TABS 1-2 tablets every 6 hours as needed for pain TRAMADOL HCL 17046389555 Active Tu Landeros MD Active HYDROCODONE-ACETAMINOPHEN 5-325 MG TABS 1 tab by mouth every 6 hours as needed for pain HYDROCODONE-ACETAMINOPHEN 43197733610 No Longer Active Tu Landeros MD Active OMEPRAZOLE 20 MG CPDR 1 po q a.m. OMEPRAZOLE 46406702811 Active Tu Landeros MD Active GABAPENTIN 100 MG CAPS 1 po bid GABAPENTIN 64953884627 No Longer Active Tu Landeros MD Active B-12 100 MCG TABS Take one by mouth daily CYANOCOBALAMIN 53036476010 No Longer Active Tu Landeros MD Active GABAPENTIN 100 MG CAPS by mouth twice a day GABAPENTIN 05429062304 Active Tu Landeros MD Active BACTRIM DS 800-160 MG TABS 1 bid x 14 day start 8-14 SULFAMETHOXAZOLE-TRIMETHOPRIM 78485216981 No Longer Active Tu Landeros MD Active CARVEDILOL 12.5 MG TABS 1 po BID CARVEDILOL 49037113245 Active Tu Landeros MD Active SUPER B COMPLEX/VITAMIN C TABS 1 qd B COMPLEX-C 77164517084 Active JASPREET Perez Active TRILIPIX 135 MG CPDR 1 q hs CHOLINE FENOFIBRATE 88740586071 Active Tu Landeros MD Active FENOFIBRATE 145 MG TABS 1 po qd FENOFIBRATE 83157134773 No Longer Active JASPREET Perez Active OMEPRAZOLE 20 MG TBEC 1 PO 30 MIN BEFORE 1ST MEAL OMEPRAZOLE 39594557479 No Longer Active JASPREET Perez Active SIMVASTATIN 40 MG TABS Take one by mouth daily SIMVASTATIN 12514267000 No Longer Active JASPREET Perez Active VENLAFAXINE HCL 37.5 MG TABS 1 bid VENLAFAXINE HCL 56735198751 Active Tu Landeros MD Active VENLAFAXINE HCL 75 MG TABS 1 po BID VENLAFAXINE HCL 86042973000 No Longer Active JASPREET Perez Active CIPRO 500 MG TAB 1 tablet by mouth twice daily CIPROFLOXACIN HCL 30177895424 No Longer Active Tu Landeros MD Active VENLAFAXINE HCL 37.5 MG TABS 1 po BID VENLAFAXINE HCL 49545167438 No Longer Active Suze Corey RMA Active LAMISIL 250 MG TAB 1 po qd TERBINAFINE HCL 28730009103 No Longer Active Tu Landeros MD Active LORTAB 5 5-500 MG TABS 1/2 to 1 tablet by mouth every 4 hours as needed for pain HYDROCODONE-ACETAMINOPHEN 86222465955 No Longer Active Tu Landeros MD Active ENALAPRIL MALEATE 20 MG TABS 1.5 po qd ENALAPRIL MALEATE 01525687010 Active Tu Landeros MD Active HYDROCODONE-ACETAMINOPHEN 5-500 MG TABS take one po Q 4-6 hours prn HYDROCODONE-ACETAMINOPHEN 86755785884 No Longer Active Tu Landeros MD Active BACTRIM DS 800-160 MG TABS 1 po BID x 7 days SULFAMETHOXAZOLE-TRIMETHOPRIM 52738717616 No Longer Active Tu Landeros MD Active VENLAFAXINE HCL 75 MG TABS 1 po BID VENLAFAXINE HCL 54106167265 No Longer Active Elvira Cervantes MD PhD Active TRAMADOL HCL 50 MG TABS 1 tablets every 6 hours as needed for pain TRAMADOL HCL 84427683605 No Longer Active Tu Landeros MD Active ACCU-CHEK FASTCLIX LANCETS MISC Use to check bloodsugar three times daily as needed LANCETS 17316452203 No Longer Active Tu Landeros MD Active ACCU-CHEK KEYONA PLUS STRP Use for testing bloodsugars three times daily as needed GLUCOSE BLOOD 11690741201 No Longer Active Tu Landeros MD Active ACCU-CHEK KEYONA PLUS W/DEVICE KIT Use for testing bloodsugars three times daily as needed BLOOD GLUCOSE MONITORING SUPPL 15144964234 No Longer Active Tu Landeros MD Active SPIRONOLACTONE 25 MG TAB 0.5 tablet by mouth daily SPIRONOLACTONE 97171897958 No Longer Active Tu Landeros MD Active ALPRAZOLAM 0.5 MG TABS 1 tab every 6hrs as needed ALPRAZOLAM 83124685920 No Longer Active Tu Landeros MD Active AUGMENTIN 875-125 MG TAB 1 tab by mouth twice daily with food AMOXICILLIN-POT CLAVULANATE 61895495092 No Longer Active Tu Landeros MD Active PREDNISONE 20 MG TAB 2 tabs daily for 3 days, 1 tab daily for 3 days, 1/2 tab daily for 2 days PREDNISONE 15361325993 No Longer Active Tu Landeros MD Active XANAX 0.5 MG TABS 1 tablet every 6 hrs prn ALPRAZOLAM 08930646860 No Longer Active Tu Landeros MD Active PREDNISONE 20 MG TAB 2 tabs daily for 3 days, 1 tab daily for 3 days, 1/2 tab daily for 2 days PREDNISONE 36368956124 No Longer Active Tu Landeros MD Active TRIAMCINOLONE ACETONIDE 0.1 % OINT Apply to affected areas TID for up to 2 weeks TRIAMCINOLONE ACETONIDE 81064040804 No Longer Active Tu Landeros MD Active LORTAB 5 5-500 MG TABS 1/2 to 1 tablet by mouth every 4 hours as needed for pain HYDROCODONE-ACETAMINOPHEN 82531994168 No Longer Active Tu Landeros MD Active MULTIVITAMINS TABS Take one by mouth daily MULTIPLE VITAMIN 51466511378 No Longer Active Tu Landeros MD Active MELATONIN 5 MG TABS Take one by mouth daily MELATONIN 28950990506 No Longer Active Tu Landeros MD Active SOMA 350 MG TAB 1 po q 6 hours prn spasm CARISOPRODOL 77156802050 No Longer Active Tu Landeros MD Active MECLIZINE HCL 25 MG CHEW TAB 1 four times a day as needed for dizziness 08/05 MECLIZINE HCL 16137604404 No Longer Active Fab Morales DO Active ANGEL BREEZE 2 TEST DISK test tid prn GLUCOSE BLOOD 00042921647 No Longer Active Negra Scott RN Active REGLAN 10 MG TAB 1 po TID PRN [place] METOCLOPRAMIDE HCL 02930941616 No Longer Active Tu Landeros MD Active METFORMIN HCL 500 MG TABS 1 PO BID METFORMIN HCL 11494042720 No Longer Active Tu Landeros MD Active AMBIEN 10 MG TAB 1 tab by mouth at bedtime as needed for sleep ZOLPIDEM TARTRATE 50774387835 No Longer Active Tu Landeros MD Active FLUOXETINE HCL 40 MG CAPS 1 po q day FLUOXETINE HCL 81190232409 No Longer Active Mayra Terry Active FISH OIL 1000 MG CAPS Take one by mouth daily OMEGA-3 FATTY ACIDS 04147670149 Active Tu Landeros MD Active GLUCOSAMINE 500 MG TABS Take 2 tab po qd GLUCOSAMINE 74233623954 Active Tu Landeros MD Active TRILIPIX 135 MG CPDR 1 po qd CHOLINE FENOFIBRATE 75879635421 No Longer Active Tu Landeros MD Active ASPIRIN 81 MG CHEW TAB 1 tablet by mouth daily ASPIRIN 85698415987 Active Tu Landeros MD Active FUROSEMIDE 40 MG TAB 1 tablet by mouth daily FUROSEMIDE 75987635487 Active Tu Landeros MD Active REQUIP 2 MG TABS Take one tablet at bedtime prn ROPINIROLE HCL 04664370327 Active Tu Landeros MD Active KLOR-CON 10 10 MEQ CR-TABS TAKE 2 TABS DAILY POTASSIUM CHLORIDE 60544949289 Active Tu Landeros MD Active AMBIEN 10 MG TAB 1 tab by mouth at bedtime as needed for sleep AMBIEN 10 MG TAB 651976 ZOLPIDEM TARTRATE Inactive METFORMIN HCL 500 MG TABS 1 PO BID METFORMIN HCL 500 MG TABS 461339 METFORMIN HCL Inactive REGLAN 10 MG TAB 1 po TID PRN Nausea REGLAN 10 MG TAB 166326 METOCLOPRAMIDE HCL Inactive MECLIZINE HCL 25 MG CHEW TAB 1 four times a day as needed for dizziness 08/05 MECLIZINE HCL 25 MG CHEW TAB 221435 MECLIZINE HCL Inactive SOMA 350 MG TAB 1 po q 6 hours prn spasm SOMA 350 MG TAB 549609 CARISOPRODOL Inactive MELATONIN 5 MG TABS Take one by mouth daily MELATONIN 5 MG TABS 024790 MELATONIN Inactive MULTIVITAMINS TABS Take one by mouth daily MULTIVITAMINS TABS MULTIPLE VITAMIN Inactive LORTAB 5 5-500 MG TABS 1/2 to 1 tablet by mouth every 4 hours as needed for pain LORTAB 5 5-500 MG TABS HYDROCODONE- ACETAMINOPHEN Inactive XANAX 0.5 MG TABS 1 tablet every 6 hrs prn XANAX 0.5 MG TABS 078778 ALPRAZOLAM Inactive AUGMENTIN 875-125 MG TAB 1 tab by mouth twice daily with food AUGMENTIN 875-125 MG TAB 319132 AMOXICILLIN-POT CLAVULANATE Inactive ALPRAZOLAM 0.5 MG TABS 1 tab every 6hrs as needed ALPRAZOLAM 0.5 MG TABS 602589 ALPRAZOLAM Inactive SPIRONOLACTONE 25 MG TAB 0.5 tablet by mouth daily SPIRONOLACTONE 25 MG TAB 909447 SPIRONOLACTONE Inactive ACCU-CHEK KEYONA PLUS W/DEVICE KIT Use for testing bloodsugars three times daily as needed ACCU-CHEK KEYONA PLUS W/DEVICE KIT BLOOD GLUCOSE MONITORING SUPPL Inactive ACCU-CHEK KEYONA PLUS STRP Use for testing bloodsugars three times daily as needed ACCU-CHEK KEYONA PLUS STRP GLUCOSE BLOOD Inactive ACCU-CHEK FASTCLIX LANCETS MISC Use to check bloodsugar three times daily as needed ACCU-CHEK FASTCLIX LANCETS MISC 37816345034 LANCETS Inactive TRAMADOL HCL 50 MG TABS 1 tablets every 6 hours as needed for pain TRAMADOL HCL 50 MG TABS 598681 TRAMADOL HCL Inactive VENLAFAXINE HCL 75 MG TABS 1 po BID VENLAFAXINE HCL 75 MG TABS 819828 VENLAFAXINE HCL Inactive HYDROCODONE-ACETAMINOPHEN 5-500 MG TABS take one po Q 4-6 hours prn HYDROCODONE-ACETAMINOPHEN 5-500 MG TABS HYDROCODONE- ACETAMINOPHEN Inactive LORTAB 5 5-500 MG TABS 1/2 to 1 tablet by mouth every 4 hours as needed for pain LORTAB 5 5-500 MG TABS HYDROCODONE- ACETAMINOPHEN Inactive LAMISIL 250 MG TAB 1 po qd LAMISIL 250 MG TAB 954655 TERBINAFINE HCL Inactive VENLAFAXINE HCL 37.5 MG TABS 1 po BID VENLAFAXINE HCL 37.5 MG TABS 198947 VENLAFAXINE HCL Inactive CIPRO 500 MG TAB 1 tablet by mouth twice daily CIPRO 500 MG TAB 337789 CIPROFLOXACIN HCL Inactive VENLAFAXINE HCL 75 MG TABS 1 po BID VENLAFAXINE HCL 75 MG TABS 642766 VENLAFAXINE HCL Inactive SIMVASTATIN 40 MG TABS Take one by mouth daily SIMVASTATIN 40 MG TABS 294958 SIMVASTATIN Inactive OMEPRAZOLE 20 MG TBEC 1 PO 30 MIN BEFORE 1ST MEAL OMEPRAZOLE 20 MG TBEC 131365 OMEPRAZOLE Inactive FENOFIBRATE 145 MG TABS 1 po qd FENOFIBRATE 145 MG TABS 958655 FENOFIBRATE Inactive BACTRIM DS 800-160 MG TABS 1 bid x 14 day start 09-28-13 BACTRIM DS 800-160 MG TABS 978436 SULFAMETHOXAZOLE-TRIMETHOPRIM Inactive B-12 100 MCG TABS Take one by mouth daily B-12 100 MCG TABS CYANOCOBALAMIN Inactive GABAPENTIN 100 MG CAPS 1 po bid GABAPENTIN 100 MG CAPS 906349 GABAPENTIN Inactive HYDROCODONE-ACETAMINOPHEN 5-325 MG TABS 1 tab by mouth every 6 hours as needed for pain HYDROCODONE-ACETAMINOPHEN 5-325 MG TABS 791610 HYDROCODONE-ACETAMINOPHEN Inactive CIPRO 500 MG TABS 1 bid x 14 days start 09-28-13 CIPRO 500 MG TABS 689692 CIPROFLOXACIN HCL Inactive ALIGN 4 MG CAPS [...] as needed DICLOFENAC SODIUM 50 MG TBEC 305790 DICLOFENAC SODIUM Inactive PREDNISONE 20 MG TAB 2 tablets once daily for 2 days, then 1 tablet once daily for 2 days PREDNISONE 20 MG TAB 537899 PREDNISONE Inactive TRUEDRAW LANCING DEVICE MISC Test twice a day dx 250.0 TRUEDRAW LANCING DEVICE MISC LANCET DEVICES Inactive TRUERESULT BLOOD GLUCOSE W/DEVICE KIT test blood sugar twice daily dx 250.00 TRUERESULT BLOOD GLUCOSE W/DEVICE KIT BLOOD GLUCOSE MONITORING SUPPL Inactive FLONASE 50 MCG/ACT SUSP 1 spray each nostril twice daily until bottle empty FLONASE 50 MCG/ACT SUSP 338638 FLUTICASONE PROPIONATE Inactive VENTOLIN HFA 108 (90 BASE) MCG/ACT AERS 1-2 puffs every 4 hours if needed for cough/congestion VENTOLIN HFA 108 (90 BASE) MCG/ACT AERS ALBUTEROL SULFATE Inactive TRIAMCINOLONE ACETONIDE 0.1 % OINT Apply to affected areas TID for up to 2 weeks TRIAMCINOLONE ACETONIDE 0.1 % OINT 5482830 TRIAMCINOLONE ACETONIDE Inactive PREDNISONE 20 MG TAB 2 tabs daily for 3 days, 1 tab daily for 3 days, 1/2 tab daily for 2 days PREDNISONE 20 MG TAB 504778 PREDNISONE Inactive PREDNISONE 20 MG TAB 2 tabs daily for 3 days, 1 tab daily for 3 days, 1/2 tab daily for 2 days PREDNISONE 20 MG TAB 638069 PREDNISONE Inactive BACTRIM DS 800-160 MG TABS 1 po BID x 7 days BACTRIM DS 800-160 MG TABS 185809 SULFAMETHOXAZOLE-TRIMETHOPRIM Inactive ZITHROMAX 250 MG TAB 2 po today, then 1 po q days 2-5 ZITHROMAX 250 MG TAB 4247560 AZITHROMYCIN Inactive Advance Directives Directive Description Start Date DISCUSSED WITH PATIENT -- NO DECISION MADE Immunizations Vaccine Administration Date Value Standard Description Seasonal influenza vaccine, injectable, containing preservative, for > 3 years old (Afluria, FluLaval, Fluzone, Fluvirin, Fluarix, Agriflu(>=18 yo)) Fluzone (>3 yrs.) [[id number]] Influenza, seasonal, injectable influenza immunization (Flu Vax) has been administered 02/22/2012 influenza virus vaccine, unspecified formulation Seasonal influenza vaccine, injectable, containing preservative, for > 3 years old (Afluria, FluLaval, Fluzone, Fluvirin, Fluarix, Agriflu(>=18 yo)) Fluzone (>3 yrs.) [[id number]] Influenza, seasonal, injectable Vital Signs Date Name [...] MICROALBUMIN - Chemistry sodium, serum 142 mmol/L 051-214 7655/10/08 potassium, serum 4.5 mmol/L 3.5-5.2 chloride, serum [...] 0.30 mg/dL 0.00-1.00 cholesterol, serum 111 mg/dL 152-903 2893/07/28 triglyceride, serum, fasting 177 mg/dL 30-200 HDL [...] Panel - Chemistry cholesterol, serum 124 mg/dL 455-198 6681/01/12 triglyceride, serum, fasting 135 mg/dL 30-200 HDL cholesterol, serum 41 mg/dL 32-96 LDL cholesterol, serum 56 mg/dL 0-130 sodium, serum 140 mmol/L 208-365 2345/01/12 carbon dioxide, venous blood 27.7 mmol/L 21.0-32.0 potassium, serum 4.5 mmol/L 3.5-5.2 chloride, serum 104 mmol/L 98-107 blood glucose 139 mg/dL 65-110 urea nitrogen, blood 16 mg/dL 7-18 alanine aminotransferase (SGPT), serum 32 U/L 12-78 aspartate aminotransferase (SGOT), serum 25 U/L 15-37 calcium, serum 9.1 mg/dL 8.5-10.1 bilirubin, serum, total 0.50 mg/dL 0.00-1.00 Encounters Code Encounter Date Provider Facility CPT-04386 Level 4 Est. Patient 14:06:04 LABOR RELATIONS OFFICER Tu Landeros MD [facility] CPT-57345 Level 3 Est. Patient 14:05:18 LABOR RELATIONS OFFICER Tu Landeros MD [facility] CPT-26099 Level 3 Est. Patient 10:06:54 LABOR RELATIONS OFFICER Miranda Suresh APRN [facility] CPT-98355 Level 4 Est. Patient 13:50:18 LABOR RELATIONS OFFICER Tu Landeros MD [facility] CPT-92406 Level 3 Est. Patient 10:30:04 CDT Tu Landeros MD [facility] CPT-52478 Level 4 Est. Patient 11:03:38 CDT Tu Landeros MD [facility] CPT-39646 Level 3 Est. Patient 10:20:44 CDT Fab Morales DO [facility] CPT-57199 Level 4 Est. Patient 14:38:57 CDT Tu Landeros MD [facility] CPT-44129 Level 4 Est. Patient 14:27:39 LABOR RELATIONS OFFICER Tu Landeros MD [facility] CPT-08007 Level 4 Est. Patient 09:45:25 CDT Tu Landeros MD [facility] CPT-94470 Level 4 Est. Patient 09:05:20 LABOR RELATIONS OFFICER Tu Landeros MD [facility] CPT-72605 Level 4 Est. Patient 14:09:06 CDT Tu Landeros MD [facility] CPT-22754 Level 3 Est. Patient 13:36:54 CDT Tu Landeros MD [facility] CPT-98535 Level 3 Est. Patient 08:59:14 CDT Tu Landeros MD [facility] CPT-36831 Level 3 Est. Patient 13:48:35 CDT Fab Morales DO [facility] CPT-89170 Level 4 Est. Patient 10:05:48 CDT Tu Landeros MD [facility] CPT-95831 Level 3 Est. Patient 13:38:42 CDT Marek BANKS [facility] CPT-44353 Level 5 Est. Patient 08:08:39 CDT Jerrica FRANCIS [facility] CPT-97326 Level 4 Est. Patient 14:23:38 CDT Tu Landeros MD [facility] CPT-48718 Level 3 Est. Patient 11:44:04 CDT Tu Landeros MD [facility] CPT-26906 Level 3 Est. Patient 11:03:20 LABOR RELATIONS OFFICER Tu Landeros MD [facility] CPT-27325 Level 3 Est. Patient 11:03:14 LABOR RELATIONS OFFICER Tu Landeros MD [facility] CPT-81877 Level 3 Est. Patient 12:42:49 CDT Tu Landeros MD [facility] CPT-95518 Level 3 Est. Patient 11:52:06 CDT Tu Landeros MD [facility] CPT-90323 Level 3 Est. Patient 13:58:11 CDT Tu Landeros MD [facility] CPT-86581 Level 3 Est. Patient 17:50:07 CDT Fab Morales DO [facility] CPT-35402 Level 3 Est. Patient 12:06:29 CDT Elvira Cervantes MD, PhD [facility] CPT-37637 Level 3 Est. Patient 15:50:32 CDT Tu Landeros MD [facility] CPT-08337 Level 4 Est. Patient 16:08:29 CDT Tu Landeros MD [facility] CPT-60157 Level 3 Est. Patient 16:04:19 CDT Tu Landeros MD [facility] CPT-96853 Level 3 Est. Patient 11:22:30 LABOR RELATIONS OFFICER Tu Landeros MD [facility] CPT-40539 Level 4 Est. Patient 16:24:02 LABOR RELATIONS OFFICER Tu Landeros MD [facility] CPT-76886 Level 3 Est. Patient 17:21:23 LABOR RELATIONS OFFICER Tu Landeros MD [facility] Procedures Code Procedure Name Date Entry Date Standard Description CPT-G0438 Initial Annual Wellness Exam 14:13:04 CDT CPT-83605 Breathing Tx 10:06:54 LABOR RELATIONS OFFICER CPT-10687 Postop F/U Visit 10:02:45 CDT CPT-LR Lesion Removal 09:02:56 CDT CPT-JTINJ Asp/Joint Injection 15:51:27 LABOR RELATIONS OFFICER CPT-OV Office Visit 15:52:02 LABOR RELATIONS OFFICER CPT-OV Office Visit 15:45:11 CDT CPT-000 Give Zostavax 14:09:06 CDT CPT-56326 Administration single or combination vaccine inc oral 15 :19:04 CDT CPT-39340 Zoster Vaccine (Zostavax) 15:19:04 CDT CPT-83854 Administration single or combination vaccine inc oral 20 :51:03 CDT CPT-38534 Influenza split virus > age 3 20:51:03 CDT CPT-04167 No Charge Offi Visit 14:52:03 CDT CPT-OV Office Visit 14:57:43 CDT CPT-OV Office Visit 15:22:32 CDT CPT-63111 Administration single or combination vaccine inc oral 11 :33:15 CDT CPT-72340 Influenza split virus > age 3 11:33:15 CDT
--- OUTSIDE RECORDS SUMMARY | 2018-04-25 17:45 | XMS REPORT | Clinical Summary ---
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 Moderate or severe vision impairment, both eyes, [...] INSOMNIA, PERSISTENT ICD-307.42 Inactive Tu Landeros MD PARESTHESIA ICD-782.0 Tessa Landeros MD RASH AND OTHER NONSPECIFIC SKIN ERUPTION ICD-782.1 Inactive Tu Landeros MD SCIATICA ICD-724.3 Inactive Tu Landeros MD 2012 CARPAL TUNNEL SYNDROME ICD-354.0 Tessa Landeros MD ARTHRITIS ICD-716.90 Inactive Tu Landeros MD KNEE PAIN ICD-719.46 Inactive Tu Landeros MD SHOULDER PAIN, LEFT ICD-719.41 Inactive Tu Landeros MD FATIGUE ICD-780.79 Tessa Landeros MD 2012 LOCALIZED SUPERFICIAL SWELLING MASS OR LUMP ICD-782.2 Inactive Tu Landeros MD PRESSURE ULCER UNSPECIFIED SITE ICD-707.00 Tessa Landeros MD CONTUSION OF UNSPECIFIED SITE [...] Hot flashes ICD-627.2 Inactive Tu Landeros MD ONYCHOMYCOSIS ICD-110.1 Inactive Tu Landeros MD Medication List Medication Instructions Start Date Stop Date Generic Name NDC Status Provider Patient Instruction VENTOLIN HFA 108 (90 BASE) MCG/ACT AERS 1-2 puffs every 4 hours if needed for cough/congestion ALBUTEROL SULFATE [id number] No Longer Active Ambika Aden APRN Active ZITHROMAX 250 MG TAB 2 po today, then 1 po q days 2-5 AZITHROMYCIN 66391010617 No Longer Active Miranda Suresh APRN Active METFORMIN HCL 1000 MG TABS 1 tablet by mouth twice daily METFORMIN HCL 69501986471 Active Tu Landeros MD Active FLONASE 50 MCG/ACT SUSP 1 spray each nostril twice daily until bottle empty FLUTICASONE PROPIONATE 13647635668 No Longer Active Tu Landeros MD Active COLACE 100 MG CAP 1 po BID PRN Constipation DOCUSATE SODIUM 35179285756 Active Tu Landeros MD Active SIMVASTATIN 40 MG TABS 0.5 tab daily at bedtime SIMVASTATIN 33987881633 Active Tu Landeros MD Active TRUERESULT BLOOD GLUCOSE W/DEVICE KIT test blood sugar twice daily dx 250.00 BLOOD GLUCOSE MONITORING SUPPL 61850809791 No Longer Active Tu Landeros MD Active TRUEDRAW LANCING DEVICE MISC Test twice a day dx 250.0 LANCET DEVICES 52634307515 No Longer Active Tu Landeros MD Active PREDNISONE 20 MG TAB 2 tablets once daily for 2 days, then 1 tablet once daily for 2 days PREDNISONE 96137088824 No Longer Active Tu Landeros MD Active DICLOFENAC SODIUM 50 MG TBEC 1 tablet by mouth three times a day as needed DICLOFENAC SODIUM 61508581675 No Longer Active Fab Morales DO Active TRUEDRAW LANCING DEVICE MISC test blood sugar twice daily dx: 250.00 LANCET DEVICES 22498726809 Active Tu Landeros MD Active TRUETEST TEST INVITR STRP test blood sugar twice daily. DX 250.0 GLUCOSE BLOOD 94735582769 Active Tu Landeros MD Active EMBRACE BLOOD GLUCOSE TEST STRP test blood sugar twice daily DX 250.0 2014 GLUCOSE BLOOD 53600902900 No Longer Active Tu Landeros MD Active TRUETEST TEST STRP test blood sugar three times daily dx: 250.00 GLUCOSE BLOOD 91667952558 No Longer Active Suze Corey RMA Active TRUERESULT BLOOD GLUCOSE W/DEVICE KIT use to test blood sugar tid dx: 250.00 BLOOD GLUCOSE MONITORING SUPPL 36822546283 No Longer Active Suze Corey RMA Active ALIGN 4 MG CAPS 1 tid PROBIOTIC PRODUCT 08540819199 No Longer Active Shaun Sy MD Active CIPRO 500 MG TABS 1 bid x 14 days start 09-28-13 CIPROFLOXACIN HCL 09149352587 No Longer Active Shaun Sy MD Active TRAMADOL HCL 50 MG TABS 1-2 tablets every 6 hours as needed for pain TRAMADOL HCL 21489059180 Active Tu Landeros MD Active HYDROCODONE-ACETAMINOPHEN 5-325 MG TABS 1 tab by mouth every 6 hours as needed for pain HYDROCODONE-ACETAMINOPHEN 32175450938 No Longer Active Tu Landeros MD Active OMEPRAZOLE 20 MG CPDR 1 po q a.m. OMEPRAZOLE 98655749756 Active Tu Landeros MD Active GABAPENTIN 100 MG CAPS 1 po bid GABAPENTIN 62378780870 No Longer Active Tu Landeros MD Active B-12 100 MCG TABS Take one by mouth daily CYANOCOBALAMIN 50911512907 No Longer Active Tu Landeros MD Active GABAPENTIN 100 MG CAPS by mouth twice a day GABAPENTIN 58865131877 Active Tiffanie Doyle Active BACTRIM DS 800-160 MG TABS 1 bid x 14 day start 5-8-14 2014/11/ 10 SULFAMETHOXAZOLE-TRIMETHOPRIM 62373595905 No Longer Active Tu Landeros MD Active CARVEDILOL 12.5 MG TABS 1 po BID CARVEDILOL 39046016086 Active Tu Landeros MD Active SUPER B COMPLEX/VITAMIN C TABS 1 qd B COMPLEX-C 85148955711 Active JASPREET Perez Active TRILIPIX 135 MG CPDR 1 q hs CHOLINE FENOFIBRATE 51819273008 Active Tu Landeros MD Active FENOFIBRATE 145 MG TABS 1 po qd FENOFIBRATE 51847750301 No Longer Active JASPREET Perez Active OMEPRAZOLE 20 MG TBEC 1 PO 30 MIN BEFORE 1ST MEAL OMEPRAZOLE 36665608866 No Longer Active JASPREET Perez Active SIMVASTATIN 40 MG TABS Take one by mouth daily SIMVASTATIN 17909511501 No Longer Active JASPREET Perez Active VENLAFAXINE HCL 37.5 MG TABS 1 bid VENLAFAXINE HCL 41173901227 Active Tu Landeros MD Active VENLAFAXINE HCL 75 MG TABS 1 po BID VENLAFAXINE HCL 48765072215 No Longer Active JASPREET Perez Active CIPRO 500 MG TAB 1 tablet by mouth twice daily CIPROFLOXACIN HCL 29428997670 No Longer Active Tu Landeros MD Active VENLAFAXINE HCL 37.5 MG TABS 1 po BID VENLAFAXINE HCL 46643557563 No Longer Active Suze Corey RMMahendra Active LAMISIL 250 MG TAB 1 po qd TERBINAFINE HCL 14899716754 No Longer Active Tu Landeros MD Active LORTAB 5 5-500 MG TABS 1/2 to 1 tablet by mouth every 4 hours as needed for pain HYDROCODONE-ACETAMINOPHEN 36828278282 No Longer Active Tu Landeros MD Active ENALAPRIL MALEATE 20 MG TABS 1.5 po qd ENALAPRIL MALEATE 08162276011 Active Tu Landeros MD Active HYDROCODONE-ACETAMINOPHEN 5-500 MG TABS take one po Q 4-6 hours prn HYDROCODONE-ACETAMINOPHEN 87385101111 No Longer Active Tu Landeros MD Active BACTRIM DS 800-160 MG TABS 1 po BID x 7 days SULFAMETHOXAZOLE-TRIMETHOPRIM 99874014318 No Longer Active Tu Landeros MD Active VENLAFAXINE HCL 75 MG TABS 1 po BID VENLAFAXINE HCL 61381891476 No Longer Active Elvira Cervantes MD PhD Active TRAMADOL HCL 50 MG TABS 1 tablets every 6 hours as needed for pain TRAMADOL HCL 06021061677 No Longer Active Tu Landeros MD Active ACCU-CHEK FASTCLIX LANCETS MISC Use to check bloodsugar three times daily as needed LANCETS 70921957714 No Longer Active Tu Landeros MD Active ACCU-CHEK KEYONA PLUS STRP Use for testing bloodsugars three times daily as needed GLUCOSE BLOOD 13875554260 No Longer Active Tu Landeros MD Active ACCU-CHEK KEYONA PLUS W/DEVICE KIT Use for testing bloodsugars three times daily as needed BLOOD GLUCOSE MONITORING SUPPL 01540694564 No Longer Active Tu Landeros MD Active SPIRONOLACTONE 25 MG TAB 0.5 tablet by mouth daily SPIRONOLACTONE 55083229067 No Longer Active Tu Landeros MD Active ALPRAZOLAM 0.5 MG TABS 1 tab every 6hrs as needed ALPRAZOLAM 10471940860 No Longer Active Tu Landeros MD Active AUGMENTIN 875-125 MG TAB 1 tab by mouth twice daily with food AMOXICILLIN-POT CLAVULANATE 52827123748 No Longer Active Tu Landeros MD Active PREDNISONE 20 MG TAB 2 tabs daily for 3 days, 1 tab daily for 3 days, 1/2 tab daily for 2 days PREDNISONE 87638467412 No Longer Active Tu Landeros MD Active XANAX 0.5 MG TABS 1 tablet every 6 hrs prn ALPRAZOLAM 00042444270 No Longer Active Tu Landeros MD Active PREDNISONE 20 MG TAB 2 tabs daily for 3 days, 1 tab daily for 3 days, 1/2 tab daily for 2 days PREDNISONE 11440021540 No Longer Active Tu Landeros MD Active TRIAMCINOLONE ACETONIDE 0.1 % OINT Apply to affected areas TID for up to 2 weeks TRIAMCINOLONE ACETONIDE 08577950822 No Longer Active Tu Landeros MD Active LORTAB 5 5-500 MG TABS 1/2 to 1 tablet by mouth every 4 hours as needed for pain HYDROCODONE-ACETAMINOPHEN 30728857757 No Longer Active Tu Landeros MD Active MULTIVITAMINS TABS Take one by mouth daily MULTIPLE VITAMIN 03602255941 No Longer Active Tu Landeros MD Active MELATONIN 5 MG TABS Take one by mouth daily MELATONIN 94316917358 No Longer Active Tu Landeros MD Active SOMA 350 MG TAB 1 po q 6 hours prn spasm CARISOPRODOL 97204749670 No Longer Active Tu Landeros MD Active MECLIZINE HCL 25 MG CHEW TAB 1 four times a day as needed for dizziness 08/05 MECLIZINE HCL 32090482255 No Longer Active Fab Morales DO Active ANGEL BREEZE 2 TEST DISK test tid prn GLUCOSE BLOOD 93075997137 No Longer Active Negra Scott RN Active REGLAN 10 MG TAB 1 po TID PRN [place] METOCLOPRAMIDE HCL 96544116959 No Longer Active Tu Landeros MD Active METFORMIN HCL 500 MG TABS 1 PO BID METFORMIN HCL 31769254407 No Longer Active Tu Landeros MD Active AMBIEN 10 MG TAB 1 tab by mouth at bedtime as needed for sleep ZOLPIDEM TARTRATE 28674499508 No Longer Active Tu Landeros MD Active FLUOXETINE HCL 40 MG CAPS 1 po q day FLUOXETINE HCL 22627254918 No Longer Active Mayra Terry Active FISH OIL 1000 MG CAPS Take one by mouth daily OMEGA-3 FATTY ACIDS 94175529346 Active Tu Landeros MD Active GLUCOSAMINE 500 MG TABS Take 2 tab po qd GLUCOSAMINE 88445932007 Active Tu Landeros MD Active TRILIPIX 135 MG CPDR 1 po qd CHOLINE FENOFIBRATE 57617327044 No Longer Active Tu Landeros MD Active ASPIRIN 81 MG CHEW TAB 1 tablet by mouth daily ASPIRIN 22744935626 Active Tu Landeros MD Active FUROSEMIDE 40 MG TAB 1 tablet by mouth daily FUROSEMIDE 36828966674 Active Tu Landeros MD Active REQUIP 2 MG TABS Take one tablet at bedtime prn ROPINIROLE HCL 01532988897 Active Tu Landeros MD Active KLOR-CON 10 10 MEQ CR-TABS TAKE 2 TABS DAILY POTASSIUM CHLORIDE 89085774981 Active Tu Landeros MD Active AMBIEN 10 MG TAB 1 tab by mouth at bedtime as needed for sleep AMBIEN 10 MG TAB 922115 ZOLPIDEM TARTRATE Inactive METFORMIN HCL 500 MG TABS 1 PO BID METFORMIN HCL 500 MG TABS 000827 METFORMIN HCL Inactive REGLAN 10 MG TAB 1 po TID PRN Nausea REGLAN 10 MG TAB 593968 METOCLOPRAMIDE HCL Inactive MECLIZINE HCL 25 MG CHEW TAB 1 four times a day as needed for dizziness 08/05 MECLIZINE HCL 25 MG CHEW TAB 417146 MECLIZINE HCL Inactive SOMA 350 MG TAB 1 po q 6 hours prn spasm SOMA 350 MG TAB 818989 CARISOPRODOL Inactive MELATONIN 5 MG TABS Take one by mouth daily MELATONIN 5 MG TABS 924389 MELATONIN Inactive MULTIVITAMINS TABS Take one by mouth daily MULTIVITAMINS TABS MULTIPLE VITAMIN Inactive LORTAB 5 5-500 MG TABS 1/2 to 1 tablet by mouth every 4 hours as needed for pain LORTAB 5 5-500 MG TABS HYDROCODONE- ACETAMINOPHEN Inactive XANAX 0.5 MG TABS 1 tablet every 6 hrs prn XANAX 0.5 MG TABS 153463 ALPRAZOLAM Inactive AUGMENTIN 875-125 MG TAB 1 tab by mouth twice daily with food AUGMENTIN 875-125 MG TAB 717776 AMOXICILLIN-POT CLAVULANATE Inactive ALPRAZOLAM 0.5 MG TABS 1 tab every 6hrs as needed ALPRAZOLAM 0.5 MG TABS 467742 ALPRAZOLAM Inactive SPIRONOLACTONE 25 MG TAB 0.5 tablet by mouth daily SPIRONOLACTONE 25 MG TAB 457097 SPIRONOLACTONE Inactive ACCU-CHEK KEYONA PLUS W/DEVICE KIT Use for testing bloodsugars three times daily as needed ACCU-CHEK KEYONA PLUS W/DEVICE KIT BLOOD GLUCOSE MONITORING SUPPL Inactive ACCU-CHEK KEYONA PLUS STRP Use for testing bloodsugars three times daily as needed ACCU-CHEK KEYONA PLUS STRP GLUCOSE BLOOD Inactive ACCU-CHEK FASTCLIX LANCETS MISC Use to check bloodsugar three times daily as needed ACCU-CHEK FASTCLIX LANCETS MISC 81975049587 LANCETS Inactive TRAMADOL HCL 50 MG TABS 1 tablets every 6 hours as needed for pain TRAMADOL HCL 50 MG TABS 113901 TRAMADOL HCL Inactive VENLAFAXINE HCL 75 MG TABS 1 po BID VENLAFAXINE HCL 75 MG TABS 637476 VENLAFAXINE HCL Inactive HYDROCODONE-ACETAMINOPHEN 5-500 MG TABS take one po Q 4-6 hours prn HYDROCODONE-ACETAMINOPHEN 5-500 MG TABS HYDROCODONE- ACETAMINOPHEN Inactive LORTAB 5 5-500 MG TABS 1/2 to 1 tablet by mouth every 4 hours as needed for pain LORTAB 5 5-500 MG TABS HYDROCODONE- ACETAMINOPHEN Inactive LAMISIL 250 MG TAB 1 po qd LAMISIL 250 MG TAB 044099 TERBINAFINE HCL Inactive VENLAFAXINE HCL 37.5 MG TABS 1 po BID VENLAFAXINE HCL 37.5 MG TABS 341744 VENLAFAXINE HCL Inactive CIPRO 500 MG TAB 1 tablet by mouth twice daily CIPRO 500 MG TAB 354290 CIPROFLOXACIN HCL Inactive VENLAFAXINE HCL 75 MG TABS 1 po BID VENLAFAXINE HCL 75 MG TABS 994257 VENLAFAXINE HCL Inactive SIMVASTATIN 40 MG TABS Take one by mouth daily SIMVASTATIN 40 MG TABS 127685 SIMVASTATIN Inactive OMEPRAZOLE 20 MG TBEC 1 PO 30 MIN BEFORE 1ST MEAL OMEPRAZOLE 20 MG TBEC 070148 OMEPRAZOLE Inactive FENOFIBRATE 145 MG TABS 1 po qd FENOFIBRATE 145 MG TABS 920762 FENOFIBRATE Inactive BACTRIM DS 800-160 MG TABS 1 bid x 14 day start 09-28-13 BACTRIM DS 800-160 MG TABS 222591 SULFAMETHOXAZOLE-TRIMETHOPRIM Inactive B-12 100 MCG TABS Take one by mouth daily B-12 100 MCG TABS CYANOCOBALAMIN Inactive GABAPENTIN 100 MG CAPS 1 po bid GABAPENTIN 100 MG CAPS 336382 GABAPENTIN Inactive HYDROCODONE-ACETAMINOPHEN 5-325 MG TABS 1 tab by mouth every 6 hours as needed for pain HYDROCODONE-ACETAMINOPHEN 5-325 MG TABS 976509 HYDROCODONE-ACETAMINOPHEN Inactive CIPRO 500 MG TABS 1 bid x 14 days start 09-28-13 CIPRO 500 MG TABS 161755 CIPROFLOXACIN HCL Inactive ALIGN 4 MG CAPS [...] as needed DICLOFENAC SODIUM 50 MG TBEC 893747 DICLOFENAC SODIUM Inactive PREDNISONE 20 MG TAB 2 tablets once daily for 2 days, then 1 tablet once daily for 2 days PREDNISONE 20 MG TAB 306928 PREDNISONE Inactive TRUEDRAW LANCING DEVICE MISC Test [...] 2 weeks TRIAMCINOLONE ACETONIDE 0.1 % OINT 7354612 TRIAMCINOLONE ACETONIDE Inactive PREDNISONE 20 MG TAB 2 tabs daily for 3 days, 1 tab daily for 3 days, 1/2 tab daily for 2 days PREDNISONE 20 MG TAB 348416 PREDNISONE Inactive PREDNISONE 20 MG TAB 2 tabs daily for 3 days, 1 tab daily for 3 days, 1/2 tab daily for 2 days PREDNISONE 20 MG TAB 908183 PREDNISONE Inactive BACTRIM DS 800-160 MG TABS 1 po BID x 7 days BACTRIM DS 800-160 MG TABS 031324 SULFAMETHOXAZOLE-TRIMETHOPRIM Inactive ZITHROMAX 250 MG TAB 2 po today, then 1 po q days 2-5 ZITHROMAX 250 MG TAB 3258969 AZITHROMYCIN Inactive Advance Directives Directive Description Start Date DISCUSSED WITH PATIENT -- NO DECISION MADE Immunizations Vaccine Administration Date Value Standard Description Seasonal influenza vaccine, injectable, containing preservative, for > 3 years old (Afluria, FluLaval, Fluzone, Fluvirin, Fluarix, Agriflu(>=18 yo)) Fluzone (>3 yrs.) [[id number]] Influenza, seasonal, injectable influenza immunization (Flu Vax) has been administered 02/22/2012 influenza virus vaccine, unspecified formulation Seasonal influenza vaccine, injectable, containing preservative, for > 3 years old (Afluria, FluLaval, Fluzone, Fluvirin, Fluarix, Agriflu(>=18 yo)) Fluzone (>3 yrs.) [[id number]] Influenza, seasonal, injectable Vital Signs Date Name [...] mg/g{creat} 0-29 blood glucose 142 mg/dL 65-110 carbon dioxide, venous blood 28.9 mmol/L 21.0-32.0 chloride, serum 105 mmol/L 98-107 potassium, serum 4.5 mmol/L 3.5-5.2 sodium, serum 142 mmol/L 222-420 2690/10/08 calcium, serum 9.1 mg/dL 8.5-10.1 urea nitrogen, [...] 10*3/mm3 142-424 Lab Report: HGBA1C - Chemistry sodium, serum 140 mmol/L 073-713 6320/09/07 potassium, serum 4.3 mmol/L 3.5-5.2 chloride, serum [...] 8.5-10.1 bilirubin, serum, total 0.50 mg/dL 0.00-1.00 urea nitrogen, blood 16 mg/dL 7-18 cholesterol, serum 124 mg/dL 190-075 6283/01/12 triglyceride, serum, fasting 135 mg/dL 30-200 HDL cholesterol, serum 41 mg/dL 32-96 LDL cholesterol, serum 56 mg/dL 0-130 sodium, serum 140 mmol/L 151-233 2310/01/12 blood glucose 139 mg/dL 65-110 chloride, serum 104 mmol/L 98-107 potassium, serum 4.5 mmol/L 3.5-5.2 carbon dioxide, venous blood 27.7 mmol/L 21.0-32.0 Encounters Code Encounter Date Provider Facility CPT-15564 Level 4 Est. Patient 14:06:04 CAN MAKER Tu Landeros MD [facility] CPT-24787 Level 3 Est. Patient 14:05:18 CAN MAKER Tu Landeros MD [facility] CPT-63132 Level 3 Est. Patient 10:06:54 CAN MAKER Miranda Suresh APRN [facility] CPT-78635 Level 4 Est. Patient 13:50:18 CAN MAKER Tu Landeros MD [facility] CPT-23229 Level 3 Est. Patient 10:30:04 CDT Tu Landeros MD [facility] CPT-01296 Level 4 Est. Patient 11:03:38 CDT Tu Landeros MD [facility] CPT-78633 Level 3 Est. Patient 10:20:44 CDT Fab Morales DO [facility] CPT-87868 Level 4 Est. Patient 14:38:57 CDT Tu Landeros MD [facility] CPT-89027 Level 4 Est. Patient 14:27:39 CAN MAKER Tu Landeros MD [facility] CPT-57593 Level 4 Est. Patient 09:45:25 CDT Tu Landeros MD [facility] CPT-87658 Level 4 Est. Patient 09:05:20 CAN MAKER Tu Landeros MD [facility] CPT-42887 Level 4 Est. Patient 14:09:06 CDT Tu Landeros MD [facility] CPT-60698 Level 3 Est. Patient 13:36:54 CDT Tu Landeros MD [facility] CPT-77213 Level 3 Est. Patient 08:59:14 CDT Tu Landeros MD [facility] CPT-68324 Level 3 Est. Patient 13:48:35 CDT Fab Morales DO [facility] CPT-12055 Level 4 Est. Patient 10:05:48 CDT Tu Landeros MD [facility] CPT-36835 Level 3 Est. Patient 13:38:[address] [facility] CPT-38670 Level 5 Est. Patient 08:08:39 CDT Jerrica Dawsontay FRANCIS [facility] CPT-52934 Level 4 Est. Patient 14:23:38 CDT Tu Landeros MD [facility] CPT-79776 Level 3 Est. Patient 11:44:04 CDT Tu Landeros MD [facility] CPT-93439 Level 3 Est. Patient 11:03:20 CAN MAKER Tu Landeros MD [facility] CPT-30415 Level 3 Est. Patient 11:03:14 CAN MAKER Tu Landeros MD [facility] CPT-45237 Level 3 Est. Patient 12:42:49 CDT Tu Landeros MD [facility] CPT-15556 Level 3 Est. Patient 11:52:06 CDT Tu Landeros MD [facility] CPT-77453 Level 3 Est. Patient 13:58:11 CDT Tu Landeros MD [facility] CPT-61207 Level 3 Est. Patient 17:50:07 CDT Fab Morales DO [facility] CPT-20759 Level 3 Est. Patient 12:06:29 CDT Elvira Cervantes MD PhD [facility] CPT-50362 Level 3 Est. Patient 15:50:32 CDT Tu Landeros MD [facility] CPT-69772 Level 4 Est. Patient 16:08:29 CDT Tu Landeros MD [facility] CPT-84818 Level 3 Est. Patient 16:04:19 CDT uT Landeros MD [facility] CPT-65218 Level 3 Est. Patient 11:22:30 CAN MAKER Tu Landeros MD [facility] CPT-25848 Level 4 Est. Patient 16:24:02 CAN MAKER Tu Landeros MD [facility] CPT-13605 Level 3 Est. Patient 17:21:23 CAN MAKER Tu Landeros MD [facility] Procedures Code Procedure Name Date Entry Date Standard Description CPT-68662 CBC - LAB USE ONLY 17:14:46 CDT CPT-97851 HGBA1C - LAB USE ONLY 17:14:46 CDT CPT-87010 Venipuncture Draw Fee 17:14:46 CDT CPT-G0438 Initial Annual Wellness Exam 14:13:04 CDT CPT-25448 Breathing Tx 10:06:54 CAN MAKER CPT-40924 Postop F/U Visit 10:02:45 CDT CPT-LR Lesion Removal 09:02:56 CDT CPT-JTINJ Asp/Joint Injection 15:51:27 CAN MAKER CPT-OV Office Visit 15:52:02 CAN MAKER CPT-OV Office Visit 15:45:11 CDT CPT-000 Give Zostavax 14:09:06 CDT CPT-29510 Administration single or combination vaccine inc oral 15 :19:04 CDT CPT-27346 Zoster Vaccine (Zostavax) 15:19:04 CDT CPT-98372 Administration single or combination vaccine inc oral 20 :51:03 CDT CPT-61484 Influenza split virus > age 3 20:51:03 CDT CPT-31753 No Charge Offi Visit 14:52:03 CDT CPT-OV Office Visit 14:57:43 CDT CPT-OV Office Visit 15:22:32 CDT CPT-88458 Administration single or combination vaccine inc oral 11 :33:15 CDT CPT-54543 Influenza split virus > age 3 11:33:15 CDT
--- OUTSIDE RECORDS SUMMARY | 2018-04-25 17:47 | XMS REPORT | Clinical Summary ---
Author Author Admin, SACHI Clemons [facility] Address Unknown Phone Unavailable Allergies, Adverse Reactions, Alerts Allergy Name Reaction Description Start Date Severity Status Provider DANIELLE migraine h/a Critical Active Luisa HU migraine h/a Moderate No Longer Active Tu Landeros MD TRICOR rash, trouble breathing Critical Active Tu Lanedros MD SULINDAC Critical Active Tu Landeros MD [...] TABS 0.5 tab daily at bedtime SIMVASTATIN 58810902792 Active Tu Landeros MD Active TRUERESULT BLOOD GLUCOSE W/DEVICE KIT test blood sugar twice daily dx 250.00 BLOOD GLUCOSE MONITORING SUPPL 40840695633 No Longer Active Tu Landeros MD Active TRUEDRAW LANCING DEVICE MISC Test twice a day dx 250.0 LANCET DEVICES 49432036715 No Longer Active Tu Landeros MD Active PREDNISONE 20 MG TAB 2 tablets once daily for 2 days, then 1 tablet once daily for 2 days PREDNISONE 07842063072 No Longer Active Tu Landeros MD Active FLONASE 50 MCG/ACT SUSP 1 spray each nostril twice daily until bottle empty FLUTICASONE PROPIONATE 08944274177 Active Fab Morales DO Active DICLOFENAC SODIUM 50 MG TBEC 1 tablet by mouth three times a day as needed DICLOFENAC SODIUM 88237123889 No Longer Active Fab Morales DO Active METFORMIN HCL 850 MG TABS 1 tablet by mouth twice daily METFORMIN HCL 16454611200 Active Tu Landeros MD Active TRUEDRAW LANCING DEVICE MISC test blood sugar twice daily dx: 250.00 LANCET DEVICES 52012276893 Active Tu Landeros MD Active TRUETEST TEST INVITR STRP test blood sugar twice daily. DX 250.0 GLUCOSE BLOOD 73876989446 Active Tu Landeros MD Active EMBRACE BLOOD GLUCOSE TEST STRP test blood sugar twice daily DX 250.0 2014 GLUCOSE BLOOD 27189082903 No Longer Active Tu Landeros MD Active TRUETEST TEST STRP test blood sugar three times daily dx: 250.00 GLUCOSE BLOOD 38238094926 No Longer Active Suzebianca Nicole RMA Active TRUERESULT BLOOD GLUCOSE W/DEVICE KIT use to test blood sugar tid dx: 250.00 BLOOD GLUCOSE MONITORING SUPPL 34101839437 No Longer Active Suze Croey RMA Active ALIGN 4 MG CAPS 1 tid PROBIOTIC PRODUCT 31257072786 No Longer Active Shaun Sy MD Active CIPRO 500 MG TABS 1 bid x 14 days start 09-28-13 CIPROFLOXACIN HCL 65048178420 No Longer Active Shaun Sy MD Active TRAMADOL HCL 50 MG TABS 1-2 tablets every 6 hours as needed for pain TRAMADOL HCL 74312266546 Active Tu Landeros MD Active HYDROCODONE-ACETAMINOPHEN 5-325 MG TABS 1 tab by mouth every 6 hours as needed for pain HYDROCODONE-ACETAMINOPHEN 42603126906 No Longer Active Tu Landeros MD Active OMEPRAZOLE 20 MG CPDR 1 po q a.m. OMEPRAZOLE 96279300659 Active Elvira Cervantes MD PhD Active GABAPENTIN 100 MG CAPS 1 po bid GABAPENTIN 90728954264 No Longer Active Tu Landeros MD Active B-12 100 MCG TABS Take one by mouth daily CYANOCOBALAMIN 23886009116 No Longer Active Tu Landeros MD Active GABAPENTIN 100 MG CAPS by mouth twice a day GABAPENTIN 55146889490 Active Tu Landeros MD Active BACTRIM DS 800-160 MG TABS 1 bid x 14 day start 09-28-13 SULFAMETHOXAZOLE-TRIMETHOPRIM 55300822494 No Longer Active Tu Landeros MD Active CARVEDILOL 12.5 MG TABS 1 po BID CARVEDILOL 84484000943 Active Tu Landeros MD Active SUPER B COMPLEX/VITAMIN C TABS 1 qd B COMPLEX-C 29071792966 Active JASPREET Perez Active TRILIPIX 135 MG CPDR 1 q hs CHOLINE FENOFIBRATE 70693059735 Active Tu Landeros MD Active FENOFIBRATE 145 MG TABS 1 po qd FENOFIBRATE 52738507531 No Longer Active JASPREET Perez Active OMEPRAZOLE 20 MG TBEC 1 PO 30 MIN BEFORE 1ST MEAL OMEPRAZOLE 34036851911 No Longer Active JASPREET Perez Active SIMVASTATIN 40 MG TABS Take one by mouth daily SIMVASTATIN 69093269923 No Longer Active JASPREET Perez Active VENLAFAXINE HCL 37.5 MG TABS 1 bid VENLAFAXINE HCL 07611899033 Active Tu Landeros MD Active VENLAFAXINE HCL 75 MG TABS 1 po BID VENLAFAXINE HCL 47060188477 No Longer Active JASPREET Perez Active CIPRO 500 MG TAB 1 tablet by mouth twice daily CIPROFLOXACIN HCL 40104935129 No Longer Active Tu Landeros MD Active VENLAFAXINE HCL 37.5 MG TABS 1 po BID VENLAFAXINE HCL 96806433907 No Longer Active Suze Corey RMA Active CVS STOOL SOFTENER 100 MG CAPS 1 tab daily DOCUSATE SODIUM 15416198501 Active Tu Landeros MD Active LAMISIL 250 MG TAB 1 po qd TERBINAFINE HCL 99937139786 No Longer Active Tu Landeros MD Active LORTAB 5 5-500 MG TABS 1/2 to 1 tablet by mouth every 4 hours as needed for pain HYDROCODONE-ACETAMINOPHEN 85198780356 No Longer Active Tu Landeros MD Active ENALAPRIL MALEATE 20 MG TABS 1.5 po qd ENALAPRIL MALEATE 36644932164 Active Tu Landeros MD Active HYDROCODONE-ACETAMINOPHEN 5-500 MG TABS take one po Q 4-6 hours prn HYDROCODONE-ACETAMINOPHEN 77677614921 No Longer Active Tu Landeros MD Active BACTRIM DS 800-160 MG TABS 1 po BID x 7 days SULFAMETHOXAZOLE-TRIMETHOPRIM 58385356226 No Longer Active Tu Landeros MD Active VENLAFAXINE HCL 75 MG TABS 1 po BID VENLAFAXINE HCL 70226855591 No Longer Active Elvira Cervantes MD PhD Active TRAMADOL HCL 50 MG TABS 1 tablets every 6 hours as needed for pain TRAMADOL HCL 58513068096 No Longer Active Tu Landeros MD Active ACCU-CHEK FASTCLIX LANCETS MISC Use to check bloodsugar three times daily as needed LANCETS 10272602727 No Longer Active Tu Landeros MD Active ACCU-CHEK KEYONA PLUS STRP Use for testing bloodsugars three times daily as needed GLUCOSE BLOOD 09764076017 No Longer Active Tu Landeros MD Active ACCU-CHEK KEYONA PLUS W/DEVICE KIT Use for testing bloodsugars three times daily as needed BLOOD GLUCOSE MONITORING SUPPL 32462529249 No Longer Active Tu Landeros MD Active SPIRONOLACTONE 25 MG TAB 0.5 tablet by mouth daily SPIRONOLACTONE 24586758356 No Longer Active Tu Landeros MD Active ALPRAZOLAM 0.5 MG TABS 1 tab every 6hrs as needed ALPRAZOLAM 10527921235 No Longer Active Tu Landeros MD Active AUGMENTIN 875-125 MG TAB 1 tab by mouth twice daily with food AMOXICILLIN-POT CLAVULANATE 84662873548 No Longer Active Tu Landeros MD Active PREDNISONE 20 MG TAB 2 tabs daily for 3 days, 1 tab daily for 3 days, 1/2 tab daily for 2 days PREDNISONE 36877941788 No Longer Active Tu Landeros MD Active XANAX 0.5 MG TABS 1 tablet every 6 hrs prn ALPRAZOLAM 88657739172 No Longer Active Tu Landeros MD Active PREDNISONE 20 MG TAB 2 tabs daily for 3 days, 1 tab daily for 3 days, 1/2 tab daily for 2 days PREDNISONE 01455899362 No Longer Active Tu Landeros MD Active TRIAMCINOLONE ACETONIDE 0.1 % OINT Apply to affected areas TID for up to 2 weeks TRIAMCINOLONE ACETONIDE 54428918756 No Longer Active Tu Landeros MD Active LORTAB 5 5-500 MG TABS 1/2 to 1 tablet by mouth every 4 hours as needed for pain HYDROCODONE-ACETAMINOPHEN 92901773269 No Longer Active Tu Landeros MD Active MULTIVITAMINS TABS Take one by mouth daily MULTIPLE VITAMIN 56542048626 No Longer Active Tu Landeros MD Active MELATONIN 5 MG TABS Take one by mouth daily MELATONIN 75430476834 No Longer Active Tu Landeros MD Active SOMA 350 MG TAB 1 po q 6 hours prn spasm CARISOPRODOL 60489211723 No Longer Active Tu Landeros MD Active MECLIZINE HCL 25 MG CHEW TAB 1 four times a day as needed for dizziness 08/05 MECLIZINE HCL 26691251191 No Longer Active Fab Morales DO Active ANGEL NIKKOEZE 2 TEST DISK test tid prn GLUCOSE BLOOD 61963304808 No Longer Active Negra Scott RN Active REGLAN 10 MG TAB 1 po TID PRN Nausea METOCLOPRAMIDE HCL 93725442821 No Longer Active Tu Landeros MD Active METFORMIN HCL 500 MG TABS 1 PO BID METFORMIN HCL 73762628469 No Longer Active Tu Landeros MD Active AMBIEN 10 MG TAB 1 tab by mouth at bedtime as needed for sleep ZOLPIDEM TARTRATE 82057408271 No Longer Active Tu Landeros MD Active FLUOXETINE HCL 40 MG CAPS 1 po q day FLUOXETINE HCL 70067767011 No Longer Active Mayra [place] Active FISH OIL 1000 MG CAPS Take one by mouth daily OMEGA-3 FATTY ACIDS 45282054334 Active Tu Landeros MD Active GLUCOSAMINE 500 MG TABS Take 2 tab po qd GLUCOSAMINE 95576082073 Active Tu Landeros MD Active TRILIPIX 135 MG CPDR 1 po qd CHOLINE FENOFIBRATE 04872055280 No Longer Active Tu Landeros MD Active ASPIRIN 81 MG CHEW TAB 1 tablet by mouth daily ASPIRIN 61608717641 Active Tu Landeros MD Active FUROSEMIDE 40 MG TAB 1 tablet by mouth daily FUROSEMIDE 60969097551 Active Tu Landeros MD Active REQUIP 2 MG TABS Take one tablet at bedtime prn ROPINIROLE HCL 72318758443 Active Tu Landeros MD Active KLOR-CON 10 10 MEQ CR-TABS TAKE 2 TABS DAILY POTASSIUM CHLORIDE 71796081385 Active Tu Landeros MD Active AMBIEN 10 MG TAB 1 tab by mouth at bedtime as needed for sleep AMBIEN 10 MG TAB 084714 ZOLPIDEM TARTRATE Inactive METFORMIN HCL 500 MG TABS 1 PO BID METFORMIN HCL 500 MG TABS 135537 METFORMIN HCL Inactive REGLAN 10 MG TAB 1 po TID PRN Nausea REGLAN 10 MG TAB 610659 METOCLOPRAMIDE HCL Inactive MECLIZINE HCL 25 MG CHEW TAB 1 four times a day as needed for dizziness 08/05 MECLIZINE HCL 25 MG CHEW TAB 908676 MECLIZINE HCL Inactive SOMA 350 MG TAB 1 po q 6 hours prn spasm SOMA 350 MG TAB 430041 CARISOPRODOL Inactive MELATONIN 5 MG TABS Take one by mouth daily MELATONIN 5 MG TABS 405117 MELATONIN Inactive MULTIVITAMINS TABS Take one by mouth daily MULTIVITAMINS TABS MULTIPLE VITAMIN Inactive LORTAB 5 5-500 MG TABS 1/2 to 1 tablet by mouth every 4 hours as needed for pain LORTAB 5 5-500 MG TABS HYDROCODONE- ACETAMINOPHEN Inactive XANAX 0.5 MG TABS 1 tablet every 6 hrs prn XANAX 0.5 MG TABS 918370 ALPRAZOLAM Inactive AUGMENTIN 875-125 MG TAB 1 tab by mouth twice daily with food AUGMENTIN 875-125 MG TAB 807214 AMOXICILLIN-POT CLAVULANATE Inactive ALPRAZOLAM 0.5 MG TABS 1 tab every 6hrs as needed ALPRAZOLAM 0.5 MG TABS 936866 ALPRAZOLAM Inactive SPIRONOLACTONE 25 MG TAB 0.5 tablet by mouth daily SPIRONOLACTONE 25 MG TAB 751343 SPIRONOLACTONE Inactive ACCU-CHEK KEYONA PLUS W/DEVICE KIT Use for testing bloodsugars three times daily as needed ACCU-CHEK KEYONA PLUS W/DEVICE KIT BLOOD GLUCOSE MONITORING SUPPL Inactive ACCU-CHEK KEYONA PLUS STRP Use for testing bloodsugars three times daily as needed ACCU-CHEK KEYONA PLUS STRP GLUCOSE BLOOD Inactive ACCU-CHEK FASTCLIX LANCETS MISC Use to check bloodsugar three times daily as needed ACCU-CHEK FASTCLIX LANCETS MISC 76008194061 LANCETS Inactive TRAMADOL HCL 50 MG TABS 1 tablets every 6 hours as needed for pain TRAMADOL HCL 50 MG TABS 986858 TRAMADOL HCL Inactive VENLAFAXINE HCL 75 MG TABS 1 po BID VENLAFAXINE HCL 75 MG TABS 330291 VENLAFAXINE HCL Inactive HYDROCODONE-ACETAMINOPHEN 5-500 MG TABS take one po Q 4-6 hours prn HYDROCODONE-ACETAMINOPHEN 5-500 MG TABS HYDROCODONE- ACETAMINOPHEN Inactive LORTAB 5 5-500 MG TABS 1/2 to 1 tablet by mouth every 4 hours as needed for pain LORTAB 5 5-500 MG TABS HYDROCODONE- ACETAMINOPHEN Inactive LAMISIL 250 MG TAB 1 po qd LAMISIL 250 MG TAB 580841 TERBINAFINE HCL Inactive VENLAFAXINE HCL 37.5 MG TABS 1 po BID VENLAFAXINE HCL 37.5 MG TABS 431859 VENLAFAXINE HCL Inactive CIPRO 500 MG TAB 1 tablet by mouth twice daily CIPRO 500 MG TAB 690383 CIPROFLOXACIN HCL Inactive VENLAFAXINE HCL 75 MG TABS 1 po BID VENLAFAXINE HCL 75 MG TABS 241452 VENLAFAXINE HCL Inactive SIMVASTATIN 40 MG TABS Take one by mouth daily SIMVASTATIN 40 MG TABS 964284 SIMVASTATIN Inactive OMEPRAZOLE 20 MG TBEC 1 PO 30 MIN BEFORE 1ST MEAL OMEPRAZOLE 20 MG TBEC 338638 OMEPRAZOLE Inactive FENOFIBRATE 145 MG TABS 1 po qd FENOFIBRATE 145 MG TABS 288915 FENOFIBRATE Inactive BACTRIM DS 800-160 MG TABS 1 bid x 14 day start 09-28-13 BACTRIM DS 800-160 MG TABS SULFAMETHOXAZOLE-TRIMETHOPRIM Inactive B-12 100 MCG TABS Take one by mouth daily B-12 100 MCG TABS CYANOCOBALAMIN Inactive GABAPENTIN 100 MG CAPS 1 po bid GABAPENTIN 100 MG CAPS 473838 GABAPENTIN Inactive HYDROCODONE-ACETAMINOPHEN 5-325 MG TABS 1 tab by mouth every 6 hours as needed for pain HYDROCODONE-ACETAMINOPHEN 5-325 MG TABS 584809 HYDROCODONE-ACETAMINOPHEN Inactive CIPRO 500 MG TABS 1 bid x 14 days start -814 CIPRO 500 MG TABS 445274 CIPROFLOXACIN HCL Inactive ALIGN 4 MG CAPS [...] as needed DICLOFENAC SODIUM 50 MG TBEC 051885 DICLOFENAC SODIUM Inactive PREDNISONE 20 MG TAB 2 tablets once daily for 2 days, then 1 tablet once daily for 2 days PREDNISONE 20 MG TAB 809398 PREDNISONE Inactive TRUEDRAW LANCING DEVICE MISC Test twice a day dx 250.0 TRUEDRAW LANCING DEVICE MISC LANCET DEVICES Inactive TRUERESULT BLOOD GLUCOSE W/DEVICE KIT test blood sugar twice daily dx 250.00 TRUERESULT BLOOD GLUCOSE W/DEVICE KIT BLOOD GLUCOSE MONITORING SUPPL Inactive TRIAMCINOLONE ACETONIDE 0.1 % OINT Apply to affected areas TID for up to 2 weeks TRIAMCINOLONE ACETONIDE 0.1 % OINT 4173039 TRIAMCINOLONE ACETONIDE Inactive PREDNISONE 20 MG TAB 2 tabs daily for 3 days, 1 tab daily for 3 days, 1/2 tab daily for 2 days PREDNISONE 20 MG TAB 998571 PREDNISONE Inactive PREDNISONE 20 MG TAB 2 tabs daily for 3 days, 1 tab daily for 3 days, 1/2 tab daily for 2 days PREDNISONE 20 MG TAB 638617 PREDNISONE Inactive BACTRIM DS 800-160 MG TABS 1 po BID x 7 days BACTRIM DS 800-160 MG TABS SULFAMETHOXAZOLE-TRIMETHOPRIM Inactive Immunizations Vaccine Administration Date Value Standard Description Seasonal influenza vaccine, injectable, containing preservative, for > 3 years old (Afluria, FluLaval, Fluzone, Fluvirin, Fluarix, Agriflu(>=18 yo)) Fluzone (>3 yrs.) [[id number]] Influenza, seasonal, injectable influenza immunization (Flu Vax) has been administered 02/22/2012 influenza virus vaccine, unspecified formulation Seasonal influenza vaccine, injectable, containing preservative, for > 3 years old (Afluria, FluLaval, Fluzone, Fluvirin, Fluarix, Agriflu(>=18 yo)) Fluzone (>3 yrs.) [[id number]] Influenza, seasonal, injectable Vital Signs Date Name [...] CBC - Chemistry sodium, serum 143 mmol/L 991-539 7821/03/10 potassium, serum 4.9 mmol/L 3.5-5.2 chloride, serum [...] 0.30 mg/dL 0.00-1.00 cholesterol, serum 111 mg/dL 657-449 1559/07/28 triglyceride, serum, fasting 177 mg/dL 30-200 HDL [...] mg/dL Encounters Code Encounter Date Provider Facility CPT-07058 Level 4 Est. Patient 11:03:38 CDT Tu Landeros MD [facility] CPT-92568 Level 3 Est. Patient 10:20:44 CDT Fab Morales DO [facility] CPT-30687 Level 4 Est. Patient 14:38:57 CDT Tu Landeros MD [facility] CPT-32578 Level 4 Est. Patient 14:27:39 TILE DITCHER Tu Landeros MD [facility] CPT-82125 Level 4 Est. Patient 09:45:25 CDT Tu Landeros MD [facility] CPT-00017 Level 4 Est. Patient 09:05:20 TILE DITCHER Tu Landeros MD [facility] CPT-25648 Level 4 Est. Patient 14:09:06 CDT Tu Landeros MD [facility] CPT-12992 Level 3 Est. Patient 13:36:54 CDT Tu Landeros MD [facility] CPT-01423 Level 3 Est. Patient 08:59:14 CDT Tu Landeros MD [facility] CPT-49651 Level 3 Est. Patient 13:48:35 CDT Fab Morales DO [facility] CPT-75557 Level 4 Est. Patient 10:05:48 CDT Tu Landeros MD [facility] CPT-14978 Level 3 Est. Patient 13:38:42 CDT Marek BANKS [facility] CPT-38890 Level 5 Est. Patient 08:08:39 CDT Jerrica FRANCIS [facility] CPT-60610 Level 4 Est. Patient 14:23:38 CDT Tu Landeros MD [facility] CPT-80194 Level 3 Est. Patient 11:44:04 CDT Tu Landeros MD [facility] CPT-16524 Level 3 Est. Patient 11:03:20 TILE DITCHER Tu Landeros MD [facility] CPT-68651 Level 3 Est. Patient 11:03:14 TILE DITCHER Tu Landeros MD [facility] CPT-11706 Level 3 Est. Patient 12:42:49 CDT Tu Landeros MD [facility] CPT-07603 Level 3 Est. Patient 11:52:06 CDT Tu Landeros MD [facility] CPT-75964 Level 3 Est. Patient 13:58:11 CDT Tu Landeros MD [facility] CPT-93656 Level 3 Est. Patient 17:50:07 CDT Fab Morales DO [facility] CPT-85178 Level 3 Est. Patient 12:06:29 CDT Evlira Cervantes MD, PhD [facility] CPT-09724 Level 3 Est. Patient 15:50:32 CDT Tu Landeros MD [facility] CPT-16184 Level 4 Est. Patient 16:08:29 CDT Tu Landeros MD [facility] CPT-23230 Level 3 Est. Patient 16:04:19 CDT Tu Landeros MD [facility] CPT-14666 Level 3 Est. Patient 11:22:30 TILE DITCHER Tu Landeros MD [facility] CPT-07805 Level 4 Est. Patient 16:24:02 TILE DITCHER Tu Landeros MD [facility] CPT-51669 Level 3 Est. Patient 17:21:23 TILE DITCHER Tu Landeros MD [facility] Procedures Code Procedure Name Date Entry Date Standard Description CPT-JTINJ Asp/Joint Injection 15:51:27 TILE DITCHER CPT-OV Office Visit 15:52:02 TILE DITCHER CPT-OV Office Visit 15:45:11 CDT CPT-000 Give Zostavax 14:09:06 CDT CPT-98030 Administration single or combination vaccine inc oral 15 :19:04 CDT CPT-51498 Zoster Vaccine (Zostavax) 15:19:04 CDT CPT-89118 Administration single or combination vaccine inc oral 20 :51:03 CDT CPT-16834 Influenza split virus > age 3 20:51:03 CDT CPT-26338 No Charge Offi Visit 14:52:03 CDT CPT-OV Office Visit 14:57:43 CDT CPT-OV Office Visit 15:22:32 CDT CPT-62201 Administration single or combination vaccine inc oral 11 :33:15 CDT CPT-46616 Influenza split virus > age 3 11:33:15 CDT
--- OUTSIDE RECORDS SUMMARY | 2018-04-25 17:49 | XMS REPORT | Clinical Summary ---
Author Author Admin, SACHI Organization [employer] Address Unknown Phone Unavailable Allergies, Adverse Reactions, [...] Sebaceous cyst Leg edema, bilateral 782.3 Active uT Landeros MD Edema Routine gynecological examination V72.31 [...] MD KNEE PAIN ICD-719.46 Tessa Landeros MD INSOMNIA, PERSISTENT ICD-307.42 Inactive Tu Landeros MD PRESSURE ULCER UNSPECIFIED SITE ICD-707.00 Tessa Landeros MD LOCALIZED SUPERFICIAL SWELLING MASS OR LUMP ICD-782.2 Tessa Landeros MD ONYCHOMYCOSIS ICD-110.1 Tessa Landeros MD Open wound of abdominal wall, anterior, complicated ICD-879.3 Tessa Landeros MD CONTUSION OF UNSPECIFIED SITE ICD-924.9 Tessa Landeros MD Open wound of other [...] MG TABS 1 po BID VENLAFAXINE HCL 71694512234 Active Tu Landeros MD Active GABAPENTIN 100 MG CAPS 1 po BID GABAPENTIN 58584723035 Active José Luis Becerra MD Active REQUIP 2 MG TABS Take one tablet at bedtime prn ROPINIROLE HCL 51246935300 No Longer Active Tu Landeros MD Active VENTOLIN HFA 108 (90 BASE) MCG/ACT AERS 1-2 puffs every 4 hours if needed for cough/congestion ALBUTEROL SULFATE 60003375257 No Longer Active Ambika Aden APRN Active ZITHROMAX 250 MG TAB 2 po today, then 1 po q days 2-5 AZITHROMYCIN 36891922738 No Longer Active Miranda Suresh APRN Active METFORMIN HCL 1000 MG TABS 1 tablet by mouth twice daily METFORMIN HCL 60315182104 Active Tu Landeros MD Active FLONASE 50 MCG/ACT SUSP 1 spray each nostril twice daily until bottle empty FLUTICASONE PROPIONATE 26175609749 No Longer Active Tu Landeros MD Active COLACE 100 MG CAP 1 po BID PRN Constipation DOCUSATE SODIUM 77601411355 Active Tu Landeros MD Active SIMVASTATIN 40 MG TABS 0.5 tab daily at bedtime SIMVASTATIN 76986531901 Active Tu Landeros MD Active TRUERESULT BLOOD GLUCOSE W/DEVICE KIT test blood sugar twice daily dx 250.00 BLOOD GLUCOSE MONITORING SUPPL 66816718168 No Longer Active Tu Landeros MD Active TRUEDRAW LANCING DEVICE MISC Test twice a day dx 250.0 LANCET DEVICES 11642911434 No Longer Active Tu Landeros MD Active PREDNISONE 20 MG TAB 2 tablets once daily for 2 days, then 1 tablet once daily for 2 days PREDNISONE 78877437285 No Longer Active Tu Landeros MD Active DICLOFENAC SODIUM 50 MG TBEC 1 tablet by mouth three times a day as needed DICLOFENAC SODIUM 82225813715 No Longer Active Fab Morales DO Active TRUEDRAW LANCING DEVICE MISC test blood sugar twice daily dx: 250.00 LANCET DEVICES 17274523926 Active Tu Landeros MD Active TRUETEST TEST INVITR STRP test blood sugar twice daily. DX 250.0 GLUCOSE BLOOD 74243437167 Active Tu Landeros MD Active EMBRACE BLOOD GLUCOSE TEST STRP test blood sugar twice daily DX 250.0 2014 GLUCOSE BLOOD 28841928153 No Longer Active Tu Landeros MD Active TRUETEST TEST STRP test blood sugar three times daily dx: 250.00 GLUCOSE BLOOD 37052023304 No Longer Active Suze Corey VOGEL Active TRUERESULT BLOOD GLUCOSE W/DEVICE KIT use to test blood sugar tid dx: 250.00 BLOOD GLUCOSE MONITORING SUPPL 54594163690 No Longer Active Suze Corey RMA Active ALIGN 4 MG CAPS 1 tid PROBIOTIC PRODUCT 68391167142 No Longer Active Shaun Sy MD Active CIPRO 500 MG TABS 1 bid x 14 days start 09-28-13 CIPROFLOXACIN HCL 04518132101 No Longer Active Shaun Sy MD Active TRAMADOL HCL 50 MG TABS 1-2 tablets every 6 hours as needed for pain TRAMADOL HCL 61995518161 Active José Luis Becerra MD Active HYDROCODONE-ACETAMINOPHEN 5-325 MG TABS 1 tab by mouth every 6 hours as needed for pain HYDROCODONE-ACETAMINOPHEN 24418674673 No Longer Active Tu aLnderos MD Active OMEPRAZOLE 20 MG CPDR 1 po q a.m. OMEPRAZOLE 52560856339 Active Tu Landeros MD Active GABAPENTIN 100 MG CAPS 1 po bid GABAPENTIN 89649548909 No Longer Active Tu Landeros MD Active B-12 100 MCG TABS Take one by mouth daily CYANOCOBALAMIN 14316046949 No Longer Active Tu Landeros MD Active BACTRIM DS 800-160 MG TABS 1 bid x 14 day start 09-28-13 SULFAMETHOXAZOLE-TRIMETHOPRIM 66727772304 No Longer Active Tu Landeros MD Active CARVEDILOL 12.5 MG TABS 1 po BID CARVEDILOL 42629422762 Active Tu Landeros MD Active SUPER B COMPLEX/VITAMIN C TABS 1 qd B COMPLEX-C 32014540278 Active JASPREET Perez Active TRILIPIX 135 MG CPDR 1 q hs CHOLINE FENOFIBRATE 52232677449 Active Tu Landeros MD Active FENOFIBRATE 145 MG TABS 1 po qd FENOFIBRATE 47681922536 No Longer Active JASPERET Perez Active OMEPRAZOLE 20 MG TBEC 1 PO 30 MIN BEFORE 1ST MEAL OMEPRAZOLE 71017739540 No Longer Active JASPREET Perez Active SIMVASTATIN 40 MG TABS Take one by mouth daily SIMVASTATIN 51999163993 No Longer Active JASPREET Perez Active VENLAFAXINE HCL 75 MG TABS 1 po BID VENLAFAXINE HCL 65510269715 No Longer Active Sullivan Norma, RMA Active CIPRO 500 MG TAB 1 tablet by mouth twice daily CIPROFLOXACIN HCL 78428456291 No Longer Active Tu Landeros MD Active VENLAFAXINE HCL 37.5 MG TABS 1 po BID VENLAFAXINE HCL 10542384716 No Longer Active Suze Nicole RMA Active LAMISIL 250 MG TAB 1 po qd TERBINAFINE HCL 04926124618 No Longer Active Tu Landeros MD Active LORTAB 5 5-500 MG TABS 1/2 to 1 tablet by mouth every 4 hours as needed for pain HYDROCODONE-ACETAMINOPHEN 75809821208 No Longer Active Tu Landeros MD Active ENALAPRIL MALEATE 20 MG TABS 1.5 po qd ENALAPRIL MALEATE 52492275636 Active Tu Landeros MD Active HYDROCODONE-ACETAMINOPHEN 5-500 MG TABS take one po Q 4-6 hours prn HYDROCODONE-ACETAMINOPHEN 91082222278 No Longer Active Tu Landeros MD Active BACTRIM DS 800-160 MG TABS 1 po BID x 7 days SULFAMETHOXAZOLE-TRIMETHOPRIM 29573075546 No Longer Active Tu Landeros MD Active VENLAFAXINE HCL 75 MG TABS 1 po BID VENLAFAXINE HCL 74418682254 No Longer Active Elviar Cervantes MD PhD Active TRAMADOL HCL 50 MG TABS 1 tablets every 6 hours as needed for pain TRAMADOL HCL 80511474977 No Longer Active Tu Landeros MD Active ACCU-CHEK FASTCLIX LANCETS MISC Use to check bloodsugar three times daily as needed LANCETS 77367470992 No Longer Active Tu Landeros MD Active ACCU-CHEK [place] PLUS STRP Use for testing bloodsugars three times daily as needed GLUCOSE BLOOD 53045142124 No Longer Active Tu Landeros MD Active ACCU-CHEK [place] PLUS W/DEVICE KIT Use for testing bloodsugars three times daily as needed BLOOD GLUCOSE MONITORING SUPPL 12765703827 No Longer Active Tu Landeros MD Active SPIRONOLACTONE 25 MG TAB 0.5 tablet by mouth daily SPIRONOLACTONE 61736803734 No Longer Active Tu Landeros MD Active ALPRAZOLAM 0.5 MG TABS 1 tab every 6hrs as needed ALPRAZOLAM 02382374380 No Longer Active Tu Landeros MD Active AUGMENTIN 875-125 MG TAB 1 tab by mouth twice daily with food AMOXICILLIN-POT CLAVULANATE 45468238221 No Longer Active Tu Landeros MD Active PREDNISONE 20 MG TAB 2 tabs daily for 3 days, 1 tab daily for 3 days, 1/2 tab daily for 2 days PREDNISONE 31053812856 No Longer Active Tu Landeros MD Active XANAX 0.5 MG TABS 1 tablet every 6 hrs prn ALPRAZOLAM 22486978246 No Longer Active Tu Landeros MD Active PREDNISONE 20 MG TAB 2 tabs daily for 3 days, 1 tab daily for 3 days, 1/2 tab daily for 2 days PREDNISONE 68799346568 No Longer Active Tu Landeros MD Active TRIAMCINOLONE ACETONIDE 0.1 % OINT Apply to affected areas TID for up to 2 weeks TRIAMCINOLONE ACETONIDE 33098021748 No Longer Active Tu Landeros MD Active LORTAB 5 5-500 MG TABS 1/2 to 1 tablet by mouth every 4 hours as needed for pain HYDROCODONE-ACETAMINOPHEN 90046612196 No Longer Active Tu Landeros MD Active MULTIVITAMINS TABS Take one by mouth daily MULTIPLE VITAMIN 35186896747 No Longer Active Tu Landeros MD Active MELATONIN 5 MG TABS Take one by mouth daily MELATONIN 47139924148 No Longer Active Tu Landeros MD Active SOMA 350 MG TAB 1 po q 6 hours prn spasm CARISOPRODOL 20194763994 No Longer Active Tu Landeros MD Active MECLIZINE HCL 25 MG CHEW TAB 1 four times a day as needed for dizziness 08/05 MECLIZINE HCL 32309711412 No Longer Active Fab Morales DO Active ANGEL BREEZE 2 TEST DISK test tid prn GLUCOSE BLOOD 70445212996 No Longer Active Negra Scott RN Active REGLAN 10 MG TAB 1 po TID PRN Nausea METOCLOPRAMIDE HCL 00785247213 No Longer Active Tu Landeros MD Active METFORMIN HCL 500 MG TABS 1 PO BID METFORMIN HCL 13741193145 No Longer Active Tu Landeros MD Active AMBIEN 10 MG TAB 1 tab by mouth at bedtime as needed for sleep ZOLPIDEM TARTRATE 05620505178 No Longer Active Tu Landeros MD Active FLUOXETINE HCL 40 MG CAPS 1 po q day FLUOXETINE HCL 79205465558 No Longer Active Mayra Seymour Active FISH OIL 1000 MG CAPS Take one by mouth daily OMEGA-3 FATTY ACIDS 41704470873 Active Tu Landeros MD Active GLUCOSAMINE 500 MG TABS Take 2 tab po qd GLUCOSAMINE 52953568329 Active Tu Landeros MD Active TRILIPIX 135 MG CPDR 1 po qd CHOLINE FENOFIBRATE 63257423481 No Longer Active Tu Landeros MD Active ASPIRIN 81 MG CHEW TAB 1 tablet by mouth daily ASPIRIN 94387007523 Active Tu Landeros MD Active FUROSEMIDE 40 MG TAB 1 tablet by mouth daily FUROSEMIDE 87099443749 Active Tu Landeros MD Active KLOR-CON 10 10 MEQ CR-TABS TAKE 2 TABS DAILY POTASSIUM CHLORIDE 14068154350 Active Tu Landeros MD Active AMBIEN 10 MG TAB 1 tab by mouth at bedtime as needed for sleep AMBIEN 10 MG TAB 222715 ZOLPIDEM TARTRATE Inactive METFORMIN HCL 500 MG TABS 1 PO BID METFORMIN HCL 500 MG TABS 229600 METFORMIN HCL Inactive REGLAN 10 MG TAB 1 po TID PRN Nausea REGLAN 10 MG TAB 717675 METOCLOPRAMIDE HCL Inactive MECLIZINE HCL 25 MG CHEW TAB 1 four times a day as needed for dizziness 08/05 MECLIZINE HCL 25 MG CHEW TAB 088754 MECLIZINE HCL Inactive SOMA 350 MG TAB 1 po q 6 hours prn spasm SOMA 350 MG TAB 979962 CARISOPRODOL Inactive MELATONIN 5 MG TABS Take one by mouth daily MELATONIN 5 MG TABS 704344 MELATONIN Inactive MULTIVITAMINS TABS Take one by mouth daily MULTIVITAMINS TABS MULTIPLE VITAMIN Inactive LORTAB 5 5-500 MG TABS 1/2 to 1 tablet by mouth every 4 hours as needed for pain LORTAB 5 5-500 MG TABS HYDROCODONE- ACETAMINOPHEN Inactive XANAX 0.5 MG TABS 1 tablet every 6 hrs prn XANAX 0.5 MG TABS 557512 ALPRAZOLAM Inactive AUGMENTIN 875-125 MG TAB 1 tab by mouth twice daily with food AUGMENTIN 875-125 MG TAB 144590 AMOXICILLIN-POT CLAVULANATE Inactive ALPRAZOLAM 0.5 MG TABS 1 tab every 6hrs as needed ALPRAZOLAM 0.5 MG TABS 666690 ALPRAZOLAM Inactive SPIRONOLACTONE 25 MG TAB 0.5 tablet by mouth daily SPIRONOLACTONE 25 MG TAB 711269 SPIRONOLACTONE Inactive ACCU-CHEK KEYONA PLUS W/DEVICE KIT Use for testing bloodsugars three times daily as needed ACCU-CHEK KEY[place] PLUS W/DEVICE KIT BLOOD GLUCOSE MONITORING SUPPL Inactive ACCU-CHEK KEY[place] PLUS STRP Use for testing bloodsugars three times daily as needed ACCU-CHEK KEYONA PLUS STRP GLUCOSE BLOOD Inactive ACCU-CHEK FASTCLIX LANCETS MISC Use to check bloodsugar three times daily as needed ACCU-CHEK FASTCLIX LANCETS MISC 50214984016 [facility] Inactive TRAMADOL HCL 50 MG TABS 1 tablets every 6 hours as needed for pain TRAMADOL HCL 50 MG TABS 585255 TRAMADOL HCL Inactive VENLAFAXINE HCL 75 MG TABS 1 po BID VENLAFAXINE HCL 75 MG TABS 563962 VENLAFAXINE HCL Inactive HYDROCODONE-ACETAMINOPHEN 5-500 MG TABS take one po Q 4-6 hours prn HYDROCODONE-ACETAMINOPHEN 5-500 MG TABS HYDROCODONE- ACETAMINOPHEN Inactive LORTAB 5 5-500 MG TABS 1/2 to 1 tablet by mouth every 4 hours as needed for pain LORTAB 5 5-500 MG TABS HYDROCODONE- ACETAMINOPHEN Inactive LAMISIL 250 MG TAB 1 po qd LAMISIL 250 MG TAB 951344 TERBINAFINE HCL Inactive VENLAFAXINE HCL 37.5 MG TABS 1 po BID VENLAFAXINE HCL 37.5 MG TABS 198999 VENLAFAXINE HCL Inactive CIPRO 500 MG TAB 1 tablet by mouth twice daily CIPRO 500 MG TAB 344573 CIPROFLOXACIN HCL Inactive VENLAFAXINE HCL 75 MG TABS 1 po BID VENLAFAXINE HCL 75 MG TABS 801432 VENLAFAXINE HCL Inactive SIMVASTATIN 40 MG TABS Take one by mouth daily SIMVASTATIN 40 MG TABS 338284 SIMVASTATIN Inactive OMEPRAZOLE 20 MG TBEC 1 PO 30 MIN BEFORE 1ST MEAL OMEPRAZOLE 20 MG TBEC 712360 OMEPRAZOLE Inactive FENOFIBRATE 145 MG TABS 1 po qd FENOFIBRATE 145 MG TABS 592551 FENOFIBRATE Inactive BACTRIM DS 800-160 MG TABS 1 bid x 14 day start 09-28-13 BACTRIM DS 800-160 MG TABS 224474 SULFAMETHOXAZOLE-TRIMETHOPRIM Inactive B-12 100 MCG TABS Take one by mouth daily B-12 100 MCG TABS CYANOCOBALAMIN Inactive GABAPENTIN 100 MG CAPS 1 po bid GABAPENTIN 100 MG CAPS 633403 GABAPENTIN Inactive HYDROCODONE-ACETAMINOPHEN 5-325 MG TABS 1 tab by mouth every 6 hours as needed for pain HYDROCODONE-ACETAMINOPHEN 5-325 MG TABS 812026 HYDROCODONE-ACETAMINOPHEN Inactive CIPRO 500 MG TABS 1 bid x 14 days start 09-28-13 CIPRO 500 MG TABS 646709 CIPROFLOXACIN HCL Inactive ALIGN 4 MG CAPS [...] as needed DICLOFENAC SODIUM 50 MG TBEC 018787 DICLOFENAC SODIUM Inactive PREDNISONE 20 MG TAB 2 tablets once daily for 2 days, then 1 tablet once daily for 2 days PREDNISONE 20 MG TAB 973517 PREDNISONE Inactive TRUEDRAW LANCING DEVICE MISC Test [...] at bedtime prn REQUIP 2 MG TABS 170639 ROPINIROLE HCL Inactive TRIAMCINOLONE ACETONIDE 0.1 % OINT Apply to affected areas TID for up to 2 weeks TRIAMCINOLONE ACETONIDE 0.1 % OINT 8192533 TRIAMCINOLONE ACETONIDE Inactive PREDNISONE 20 MG TAB 2 tabs daily for 3 days, 1 tab daily for 3 days, 1/2 tab daily for 2 days PREDNISONE 20 MG TAB 923977 PREDNISONE Inactive PREDNISONE 20 MG TAB 2 tabs daily for 3 days, 1 tab daily for 3 days, 1/2 tab daily for 2 days PREDNISONE 20 MG TAB 964563 PREDNISONE Inactive BACTRIM DS 800-160 MG TABS 1 po BID x 7 days BACTRIM DS 800-160 MG TABS 044126 SULFAMETHOXAZOLE-TRIMETHOPRIM Inactive ZITHROMAX 250 MG TAB 2 po today, then 1 po q days 2-5 ZITHROMAX 250 MG TAB 8072276 AZITHROMYCIN Inactive Advance Directives Directive Description Start Date DISCUSSED WITH PATIENT -- NO DECISION MADE Immunizations Vaccine Administration Date Value Standard Description Seasonal influenza vaccine, injectable, containing preservative, for > 3 years old (Afluria, FluLaval, Fluzone, Fluvirin, Fluarix, Agriflu(>=18 yo)) Fluzone (>3 yrs.) [XDB775] Influenza, seasonal, injectable influenza immunization (Flu Vax) has been administered 02/22/2012 influenza virus vaccine, unspecified formulation Seasonal influenza vaccine, injectable, containing preservative, for > 3 years old (Afluria, FluLaval, Fluzone, Fluvirin, Fluarix, Agriflu(>=18 yo)) Fluzone (>3 yrs.) [[id number]] Influenza, seasonal, injectable Vital Signs Date Name [...] 7.4 % 4.3-6.0 sodium, serum 140 mmol/L 829-881 0583/09/07 potassium, serum 4.3 mmol/L 3.5-5.2 chloride, serum 104 mmol/L 98-107 carbon dioxide, venous blood 27.7 mmol/L 21.0-32.0 blood glucose 156 mg/dL 65-110 calcium, serum 9.3 mg/dL 8.5-10.1 urea nitrogen, blood 23 mg/dL 7-18 creatinine, serum 1.21 mg/dL 0.55-1.30 Lab Report: Lipid Panel, Comp. Metabolic Panel - Chemistry carbon dioxide, venous blood 27.7 mmol/L 21.0-32.0 potassium, serum 4.5 mmol/L 3.5-5.2 chloride, serum 104 mmol/L 98-107 blood glucose 139 mg/dL 65-110 urea nitrogen, blood 16 mg/dL 7-18 alanine aminotransferase (SGPT), serum 32 U/L 12-78 aspartate aminotransferase (SGOT), serum 25 U/L 15-37 calcium, serum 9.1 mg/dL 8.5-10.1 bilirubin, serum, total 0.50 mg/dL 0.00-1.00 sodium, serum 140 mmol/L 130-907 9151/01/12 LDL cholesterol, serum 56 mg/dL 0-130 HDL cholesterol, serum 41 mg/dL 32-96 triglyceride, serum, fasting 135 mg/dL 30-200 cholesterol, serum 124 mg/dL 130-200 Encounters Code Encounter Date Provider Facility CPT-45501 Level 4 Est. Patient 14:40:19 CDT Tu Landeros MD [facility] CPT-13664 Level 4 Est. Patient 14:06:04 SQL REPORT ANALYST Tu Landeros MD [facility] CPT-81393 Level 3 Est. Patient 14:05:18 SQL REPORT ANALYST Tu Landeros MD [facility] CPT-48115 Level 3 Est. Patient 10:06:54 SQL REPORT ANALYST Miranda Suresh APRN [facility] CPT-44962 Level 4 Est. Patient 13:50:18 SQL REPORT ANALYST Tu Landeros MD [facility] CPT-15067 Level 3 Est. Patient 10:30:04 CDT Tu Landeros MD [facility] CPT-63944 Level 4 Est. Patient 11:03:38 CDT Tu Landeros MD [facility] CPT-91317 Level 3 Est. Patient 10:20:44 CDT Fab Morales DO [facility] CPT-45649 Level 4 Est. Patient 14:38:57 CDT Tu Landeros MD [facility] CPT-36604 Level 4 Est. Patient 14:27:39 SQL REPORT ANALYST Tu Landeros MD [facility] CPT-69914 Level 4 Est. Patient 09:45:25 CDT Tu Landeros MD [facility] CPT-33544 Level 4 Est. Patient 09:05:20 SQL REPORT ANALYST Tu Landeros MD [facility] CPT-33748 Level 4 Est. Patient 14:09:06 CDT Tu Landeros MD [facility] CPT-25811 Level 3 Est. Patient 13:36:54 CDT Tu Landeros MD [facility] CPT-27284 Level 3 Est. Patient 08:59:14 CDT Tu Landeros MD [facility] CPT-05620 Level 3 Est. Patient 13:48:35 CDT Fab Morales DO [facility] CPT-60401 Level 4 Est. Patient 10:05:48 CDT Tu Landeros MD [facility] CPT-69577 Level 3 Est. Patient 13:38:42 CDT Marek BANKS [facility] CPT-09318 Level 5 Est. Patient 08:08:39 CDT Jerrica FRANCIS [facility] CPT-17411 Level 4 Est. Patient 14:23:38 CDT Tu Landeros MD [facility] CPT-06151 Level 3 Est. Patient 11:44:04 CDT Tu Landeros MD [facility] CPT-25300 Level 3 Est. Patient 11:03:20 SQL REPORT ANALYST Tu Landeros MD [facility] CPT-26904 Level 3 Est. Patient 11:03:14 SQL REPORT ANALYST Tu Landeros MD [facility] CPT-13194 Level 3 Est. Patient 12:42:49 CDT Tu Landeros MD [facility] CPT-28902 Level 3 Est. Patient 11:52:06 CDT Tu Landeros MD [facility] CPT-95472 Level 3 Est. Patient 13:58:11 CDT Tu Landeros MD [facility] CPT-11226 Level 3 Est. Patient 17:50:07 CDT Fab Morales DO [facility] CPT-47974 Level 3 Est. Patient 12:06:29 CDT Elvira Cervantes MD PhD [facility] CPT-87262 Level 3 Est. Patient 15:50:32 CDT Tu Landeros MD [facility] CPT-69102 Level 4 Est. Patient 16:08:29 CDT Tu Landeros MD [facility] CPT-17142 Level 3 Est. Patient 16:04:19 CDT Tu Landeros MD [facility] CPT-84958 Level 3 Est. Patient 11:22:30 SQL REPORT ANALYST Tu Landeros MD [facility] CPT-68126 Level 4 Est. Patient 16:24:02 SQL REPORT ANALYST Tu Landeros MD [facility] CPT-21653 Level 3 Est. Patient 17:21:23 SQL REPORT ANALYST Tu Landeros MD [facility] Procedures Code Procedure Name Date Entry Date Standard Description CPT-66596 First Vx - Ix admin for Medicare patients 16:46:52 CDT CPT-34015 Fluzone Preservative Free Intramuscular Suspension 16:46 :51 CDT CPT-08256 CBC - LAB USE ONLY 17:14:46 CDT CPT-81028 HGBA1C - LAB USE ONLY 17:14:46 CDT CPT-12028 Venipuncture Draw Fee 17:14:46 CDT CPT-G0438 Initial Annual Wellness Exam 14:13:04 CDT CPT-44408 Breathing Tx 10:06:54 SQL REPORT ANALYST CPT-94319 Postop F/U Visit 10:02:45 CDT CPT-LR Lesion Removal 09:02:56 CDT CPT-JTINJ Asp/Joint Injection 15:51:27 SQL REPORT ANALYST CPT-OV Office Visit 15:52:02 SQL REPORT ANALYST CPT-OV Office Visit 15:45:11 CDT CPT-000 Give Zostavax 14:09:06 CDT CPT-26443 Administration single or combination vaccine inc oral 15 :19:04 CDT CPT-84582 Zoster Vaccine (Zostavax) 15:19:04 CDT CPT-31827 Administration single or combination vaccine inc oral 20 :51:03 CDT CPT-98801 Influenza split virus > age 3 20:51:03 CDT CPT-68141 No Charge Offi Visit 14:52:03 CDT CPT-OV Office Visit 14:57:43 CDT CPT-OV Office Visit 15:22:32 CDT CPT-95359 Administration single or combination vaccine inc oral 11 :33:15 CDT CPT-96205 Influenza split virus > age 3 11:33:15 CDT
--- OUTSIDE RECORDS SUMMARY | 2018-04-25 17:54 | XMS REPORT | Clinical Summary ---
Author Author Admin, SACHI Clemons [facility] Address Unknown Phone Unavailable Allergies, [...] Inactive Tu Landeros MD ARTHRITIS ICD-716.90 Tessa Ladneros MD KNEE PAIN ICD-719.46 Inactive Tu Landeros [...] tablet by mouth twice daily METFORMIN HCL 61449488264 Active Tu Landeros MD Active FLONASE 50 MCG/ACT SUSP 1 spray each nostril twice daily until bottle empty FLUTICASONE PROPIONATE 08504836159 No Longer Active Tu Landeros MD Active COLACE 100 MG CAP 1 po BID PRN Constipation DOCUSATE SODIUM 24972037670 Active Tu Landeros MD Active SIMVASTATIN 40 MG TABS 0.5 tab daily at bedtime SIMVASTATIN 19583175008 Active Tu Landeros MD Active TRUERESULT BLOOD GLUCOSE W/DEVICE KIT test blood sugar twice daily dx 250.00 BLOOD GLUCOSE MONITORING SUPPL 78528968311 No Longer Active Tu Landeros MD Active TRUEDRAW LANCING DEVICE MISC Test twice a day dx 250.0 LANCET DEVICES 09087420763 No Longer Active Tu Landeros MD Active PREDNISONE 20 MG TAB 2 tablets once daily for 2 days, then 1 tablet once daily for 2 days PREDNISONE 73537575727 No Longer Active Tu Landeros MD Active DICLOFENAC SODIUM 50 MG TBEC 1 tablet by mouth three times a day as needed DICLOFENAC SODIUM 48705380806 No Longer Active Fab Morales DO Active TRUEDRAW LANCING DEVICE MISC test blood sugar twice daily dx: 250.00 LANCET DEVICES 85324755428 Active Tu Landeros MD Active TRUETEST TEST INVITR STRP test blood sugar twice daily. DX 250.0 GLUCOSE BLOOD 68164075087 Active Tu Landeros MD Active EMBRACE BLOOD GLUCOSE TEST STRP test blood sugar twice daily DX 250.0 2014 GLUCOSE BLOOD 99987213467 No Longer Active Tu Landeros MD Active TRUETEST TEST STRP test blood sugar three times daily dx: 250.00 GLUCOSE BLOOD 26710447941 No Longer Active Suze VOGEL Active TRUERESULT BLOOD GLUCOSE W/DEVICE KIT use to test blood sugar tid dx: 250.00 BLOOD GLUCOSE MONITORING SUPPL 18675007462 No Longer Active Suze Nicole RMA Active ALIGN 4 MG CAPS 1 tid PROBIOTIC PRODUCT 23648516603 No Longer Active Shaun Sy MD Active CIPRO 500 MG TABS 1 bid x 14 days start 09-28-13 CIPROFLOXACIN HCL 58583405339 No Longer Active Shaun Sy MD Active TRAMADOL HCL 50 MG TABS 1-2 tablets every 6 hours as needed for pain TRAMADOL HCL 25076040378 Active Tu Landeros MD Active HYDROCODONE-ACETAMINOPHEN 5-325 MG TABS 1 tab by mouth every 6 hours as needed for pain HYDROCODONE-ACETAMINOPHEN 57606103699 No Longer Active Tu Landeros MD Active OMEPRAZOLE 20 MG CPDR 1 po q a.m. OMEPRAZOLE 45285723512 Active Tu Landeros MD Active GABAPENTIN 100 MG CAPS 1 po bid GABAPENTIN 47884302351 No Longer Active Tu Landeros MD Active B-12 100 MCG TABS Take one by mouth daily CYANOCOBALAMIN 72894234289 No Longer Active Tu Landeros MD Active GABAPENTIN 100 MG CAPS by mouth twice a day GABAPENTIN 59642674426 Active Tu Landeros MD Active BACTRIM DS 800-160 MG TABS 1 bid x 14 day start 09-28-13 SULFAMETHOXAZOLE-TRIMETHOPRIM 79667541739 No Longer Active Tu Landeros MD Active CARVEDILOL 12.5 MG TABS 1 po BID CARVEDILOL 00430029995 Active Tu Landeros MD Active SUPER B COMPLEX/VITAMIN C TABS 1 qd B COMPLEX-C 84279779602 Active JASPREET Perez Active TRILIPIX 135 MG CPDR 1 q hs CHOLINE FENOFIBRATE 83142957497 Active Tu Landeros MD Active FENOFIBRATE 145 MG TABS 1 po qd FENOFIBRATE 09877456630 No Longer Active JASPREET Perez Active OMEPRAZOLE 20 MG TBEC 1 PO 30 MIN BEFORE 1ST MEAL OMEPRAZOLE 17753371378 No Longer Active JASPREET Perez Active SIMVASTATIN 40 MG TABS Take one by mouth daily SIMVASTATIN 58646374222 No Longer Active Gustavo JASPREET Green Active VENLAFAXINE HCL 37.5 MG TABS 1 bid VENLAFAXINE HCL 50213680162 Active Tu Landeros MD Active VENLAFAXINE HCL 75 MG TABS 1 po BID VENLAFAXINE HCL 30037809565 No Longer Active JASPREET Perez Active CIPRO 500 MG TAB 1 tablet by mouth twice daily CIPROFLOXACIN HCL 49240078442 No Longer Active Tu Landeros MD Active VENLAFAXINE HCL 37.5 MG TABS 1 po BID VENLAFAXINE HCL 98349869198 No Longer Active Suzebianca NUNOA Active LAMISIL 250 MG TAB 1 po qd TERBINAFINE HCL 80933350332 No Longer Active Tu Landeros MD Active LORTAB 5 5-500 MG TABS 1/2 to 1 tablet by mouth every 4 hours as needed for pain HYDROCODONE-ACETAMINOPHEN 74752879253 No Longer Active Tu Landeros MD Active ENALAPRIL MALEATE 20 MG TABS 1.5 po qd ENALAPRIL MALEATE 27269109369 Active Tu Landeros MD Active HYDROCODONE-ACETAMINOPHEN 5-500 MG TABS take one po Q 4-6 hours prn HYDROCODONE-ACETAMINOPHEN 60765051196 No Longer Active Tu Landeros MD Active BACTRIM DS 800-160 MG TABS 1 po BID x 7 days SULFAMETHOXAZOLE-TRIMETHOPRIM 23589226980 No Longer Active Tu Landeros MD Active VENLAFAXINE HCL 75 MG TABS 1 po BID VENLAFAXINE HCL 15344943814 No Longer Active Elvira Cervantes MD PhD Active TRAMADOL HCL 50 MG TABS 1 tablets every 6 hours as needed for pain TRAMADOL HCL 23297843612 No Longer Active Tu Landeros MD Active ACCU-CHEK FASTCLIX LANCETS MISC Use to check bloodsugar three times daily as needed LANCETS 56192857725 No Longer Active Tu Landeros MD Active ACCU-CHEK KEYONA PLUS STRP Use for testing bloodsugars three times daily as needed GLUCOSE BLOOD 28568121684 No Longer Active Tu Landeros MD Active ACCU-CHEK KEYONA PLUS W/DEVICE KIT Use for testing bloodsugars three times daily as needed BLOOD GLUCOSE MONITORING SUPPL 44134621704 No Longer Active Tu Landeros MD Active SPIRONOLACTONE 25 MG TAB 0.5 tablet by mouth daily SPIRONOLACTONE 34483927821 No Longer Active Tu Landeros MD Active ALPRAZOLAM 0.5 MG TABS 1 tab every 6hrs as needed ALPRAZOLAM 76464273623 No Longer Active Tu Landeros MD Active AUGMENTIN 875-125 MG TAB 1 tab by mouth twice daily with food AMOXICILLIN-POT CLAVULANATE 54722078873 No Longer Active Tu Landeros MD Active PREDNISONE 20 MG TAB 2 tabs daily for 3 days, 1 tab daily for 3 days, 1/2 tab daily for 2 days PREDNISONE 58067393583 No Longer Active Tu Landeros MD Active XANAX 0.5 MG TABS 1 tablet every 6 hrs prn ALPRAZOLAM 73721356400 No Longer Active Tu Landeros MD Active PREDNISONE 20 MG TAB 2 tabs daily for 3 days, 1 tab daily for 3 days, 1/2 tab daily for 2 days PREDNISONE 24506914736 No Longer Active Tu Landeros MD Active TRIAMCINOLONE ACETONIDE 0.1 % OINT Apply to affected areas TID for up to 2 weeks TRIAMCINOLONE ACETONIDE 99682977977 No Longer Active Tu Landeros MD Active LORTAB 5 5-500 MG TABS 1/2 to 1 tablet by mouth every 4 hours as needed for pain HYDROCODONE-ACETAMINOPHEN 14914814468 No Longer Active Tu Landeros MD Active MULTIVITAMINS TABS Take one by mouth daily MULTIPLE VITAMIN 91263268485 No Longer Active Tu Landeros MD Active MELATONIN 5 MG TABS Take one by mouth daily MELATONIN 08856546924 No Longer Active Tu Landeros MD Active SOMA 350 MG TAB 1 po q 6 hours prn spasm CARISOPRODOL 26692891615 No Longer Active Tu Landeros MD Active MECLIZINE HCL 25 MG CHEW TAB 1 four times a day as needed for dizziness 08/05 MECLIZINE HCL 16274088581 No Longer Active Fab Morales DO Active ANGEL BREEZE 2 TEST DISK test tid prn GLUCOSE BLOOD 87746099335 No Longer Active Negra Scott RN Active REGLAN 10 MG TAB 1 po TID PRN [place] METOCLOPRAMIDE HCL 56167749669 No Longer Active Tu Landeros MD Active METFORMIN HCL 500 MG TABS 1 PO BID METFORMIN HCL 97371068516 No Longer Active Tu Landeros MD Active AMBIEN 10 MG TAB 1 tab by mouth at bedtime as needed for sleep ZOLPIDEM TARTRATE 98575185211 No Longer Active Tu Landeros MD Active FLUOXETINE HCL 40 MG CAPS 1 po q day FLUOXETINE HCL 97109584922 No Longer Active Mayra [place] Active FISH OIL 1000 MG CAPS Take one by mouth daily OMEGA-3 FATTY ACIDS 74860675571 Active Tu Landeros MD Active GLUCOSAMINE 500 MG TABS Take 2 tab po qd GLUCOSAMINE 19730169372 Active Tu Landeros MD Active TRILIPIX 135 MG CPDR 1 po qd CHOLINE FENOFIBRATE 82579451081 No Longer Active Tu Landeros MD Active ASPIRIN 81 MG CHEW TAB 1 tablet by mouth daily ASPIRIN 14918523475 Active Tu Landeros MD Active FUROSEMIDE 40 MG TAB 1 tablet by mouth daily FUROSEMIDE 84572924545 Active Tu Landeros MD Active REQUIP 2 MG TABS Take one tablet at bedtime prn ROPINIROLE HCL 70981117094 Active Tu Landeros MD Active KLOR-CON 10 10 MEQ CR-TABS TAKE 2 TABS DAILY POTASSIUM CHLORIDE 72741424097 Active Tu Landeros MD Active AMBIEN 10 MG TAB 1 tab by mouth at bedtime as needed for sleep AMBIEN 10 MG TAB 271989 ZOLPIDEM TARTRATE Inactive METFORMIN HCL 500 MG TABS 1 PO BID METFORMIN HCL 500 MG TABS 276996 METFORMIN HCL Inactive REGLAN 10 MG TAB 1 po TID PRN [place] REGLAN 10 MG TAB 669270 METOCLOPRAMIDE HCL Inactive MECLIZINE HCL 25 MG CHEW TAB 1 four times a day as needed for dizziness 08/05 MECLIZINE HCL 25 MG CHEW TAB 624146 MECLIZINE HCL Inactive SOMA 350 MG TAB 1 po q 6 hours prn spasm SOMA 350 MG TAB 285787 CARISOPRODOL Inactive MELATONIN 5 MG TABS Take one by mouth daily MELATONIN 5 MG TABS 609831 MELATONIN Inactive MULTIVITAMINS TABS Take one by mouth daily MULTIVITAMINS TABS MULTIPLE VITAMIN Inactive LORTAB 5 5-500 MG TABS 1/2 to 1 tablet by mouth every 4 hours as needed for pain LORTAB 5 5-500 MG TABS HYDROCODONE- ACETAMINOPHEN Inactive XANAX 0.5 MG TABS 1 tablet every 6 hrs prn XANAX 0.5 MG TABS 750065 ALPRAZOLAM Inactive AUGMENTIN 875-125 MG TAB 1 tab by mouth twice daily with food AUGMENTIN 875-125 MG TAB 805231 AMOXICILLIN-POT CLAVULANATE Inactive ALPRAZOLAM 0.5 MG TABS 1 tab every 6hrs as needed ALPRAZOLAM 0.5 MG TABS 119850 ALPRAZOLAM Inactive SPIRONOLACTONE 25 MG TAB 0.5 tablet by mouth daily SPIRONOLACTONE 25 MG TAB 678157 SPIRONOLACTONE Inactive ACCU-CHEK KEYONA PLUS W/DEVICE KIT Use for testing bloodsugars three times daily as needed ACCU-CHEK KEYONA PLUS W/DEVICE KIT BLOOD GLUCOSE MONITORING SUPPL Inactive ACCU-CHEK KEYONA PLUS STRP Use for testing bloodsugars three times daily as needed ACCU-CHEK KEYONA PLUS STRP GLUCOSE BLOOD Inactive ACCU-CHEK FASTCLIX LANCETS MISC Use to check bloodsugar three times daily as needed ACCU-CHEK FASTCLIX LANCETS MISC 50738703308 LANCETS Inactive TRAMADOL HCL 50 MG TABS 1 tablets every 6 hours as needed for pain TRAMADOL HCL 50 MG TABS 207493 TRAMADOL HCL Inactive VENLAFAXINE HCL 75 MG TABS 1 po BID VENLAFAXINE HCL 75 MG TABS 553731 VENLAFAXINE HCL Inactive HYDROCODONE-ACETAMINOPHEN 5-500 MG TABS take one po Q 4-6 hours prn HYDROCODONE-ACETAMINOPHEN 5-500 MG TABS HYDROCODONE- ACETAMINOPHEN Inactive LORTAB 5 5-500 MG TABS 1/2 to 1 tablet by mouth every 4 hours as needed for pain LORTAB 5 5-500 MG TABS HYDROCODONE- ACETAMINOPHEN Inactive LAMISIL 250 MG TAB 1 po qd LAMISIL 250 MG TAB 816906 TERBINAFINE HCL Inactive VENLAFAXINE HCL 37.5 MG TABS 1 po BID VENLAFAXINE HCL 37.5 MG TABS 756135 VENLAFAXINE HCL Inactive CIPRO 500 MG TAB 1 tablet by mouth twice daily CIPRO 500 MG TAB 070377 CIPROFLOXACIN HCL Inactive VENLAFAXINE HCL 75 MG TABS 1 po BID VENLAFAXINE HCL 75 MG TABS 300730 VENLAFAXINE HCL Inactive SIMVASTATIN 40 MG TABS Take one by mouth daily SIMVASTATIN 40 MG TABS 153737 SIMVASTATIN Inactive OMEPRAZOLE 20 MG TBEC 1 PO 30 MIN BEFORE 1ST MEAL OMEPRAZOLE 20 MG TBEC 451407 OMEPRAZOLE Inactive FENOFIBRATE 145 MG TABS 1 po qd FENOFIBRATE 145 MG TABS 777445 FENOFIBRATE Inactive BACTRIM DS 800-160 MG TABS 1 bid x 14 day start 09-28-13 BACTRIM DS 800-160 MG TABS 023732 SULFAMETHOXAZOLE-TRIMETHOPRIM Inactive B-12 100 MCG TABS Take one by mouth daily B-12 100 MCG TABS CYANOCOBALAMIN Inactive GABAPENTIN 100 MG CAPS 1 po bid GABAPENTIN 100 MG CAPS 032944 GABAPENTIN Inactive HYDROCODONE-ACETAMINOPHEN 5-325 MG TABS 1 tab by mouth every 6 hours as needed for pain HYDROCODONE-ACETAMINOPHEN 5-325 MG TABS 660935 HYDROCODONE-ACETAMINOPHEN Inactive CIPRO 500 MG TABS 1 bid x 14 days start 09-28-13 CIPRO 500 MG TABS 197556 CIPROFLOXACIN HCL Inactive ALIGN 4 MG CAPS [...] as needed DICLOFENAC SODIUM 50 MG TBEC 608666 DICLOFENAC SODIUM Inactive PREDNISONE 20 MG TAB 2 tablets once daily for 2 days, then 1 tablet once daily for 2 days PREDNISONE 20 MG TAB 387581 PREDNISONE Inactive TRUEDRAW LANCING DEVICE MISC Test [...] 2 weeks TRIAMCINOLONE ACETONIDE 0.1 % OINT 2228160 TRIAMCINOLONE ACETONIDE Inactive PREDNISONE 20 MG TAB 2 tabs daily for 3 days, 1 tab daily for 3 days, 1/2 tab daily for 2 days PREDNISONE 20 MG TAB 988669 PREDNISONE Inactive PREDNISONE 20 MG TAB 2 tabs daily for 3 days, 1 tab daily for 3 days, 1/2 tab daily for 2 days PREDNISONE 20 MG TAB 511772 PREDNISONE Inactive BACTRIM DS 800-160 MG TABS 1 po BID x 7 days BACTRIM DS 800-160 MG TABS 659755 SULFAMETHOXAZOLE-TRIMETHOPRIM Inactive Immunizations Vaccine Administration Date Value Standard Description Seasonal influenza vaccine, injectable, containing preservative, for > 3 years old (Afluria, FluLaval, Fluzone, Fluvirin, Fluarix, Agriflu(>=18 yo)) Fluzone (>3 yrs.) [[id number]] Influenza, seasonal, injectable influenza immunization (Flu Vax) has been administered 02/22/2012 influenza virus vaccine, unspecified formulation Seasonal influenza vaccine, injectable, containing preservative, for > 3 years old (Afluria, FluLaval, Fluzone, Fluvirin, Fluarix, Agriflu(>=18 yo)) Fluzone (>3 yrs.) [[id number]] Influenza, seasonal, injectable Vital Signs Date Name [...] MICROALBUMIN - Chemistry sodium, serum 142 mmol/L 235-631 3838/10/08 potassium, serum 4.5 mmol/L 3.5-5.2 chloride, serum [...] Report: HEPATIC PANEL, Lipid Panel - Chemistry alanine aminotransferase (SGPT), serum 32 U/L 12-78 bilirubin, serum, total 0.30 mg/dL 0.00-1.00 cholesterol, serum 111 mg/dL 271-028 5870/07/28 triglyceride, serum, fasting 177 mg/dL 30-200 HDL cholesterol, serum 32 mg/dL 32-96 LDL cholesterol, serum 44 mg/dL 0-130 aspartate aminotransferase (SGOT), serum 18 U/L 15-37 [...] m[iU]/mL Encounters Code Encounter Date Provider Facility CPT-74607 Level 4 Est. Patient 13:50:18 [facility] SORTER Tu Landeros MD [facility] CPT-89851 Level 3 Est. Patient 10:30:04 CDT Tu Landeros MD [facility] CPT-06058 Level 4 Est. Patient 11:03:38 CDT Tu Landeros MD [facility] CPT-78528 Level 3 Est. Patient 10:20:44 CDT Fab Morales DO [facility] CPT-30865 Level 4 Est. Patient 14:38:57 CDT Tu Landeros MD [facility] CPT-52526 Level 4 Est. Patient 14:27:39 [facility] [employer]TER Tu Landeros MD [facility] CPT-95650 Level 4 Est. Patient 09:45:25 CDT Tu Landeros MD [facility] CPT-20412 Level 4 Est. Patient 09:05:20 [employer] S[employer]TER Tu Landeros MD [facility] CPT-76792 Level 4 Est. Patient 14:09:06 CDT Tu Landeros MD [facility] CPT-90434 Level 3 Est. Patient 13:36:54 CDT Tu Landeros MD [facility] CPT-26008 Level 3 Est. Patient 08:59:14 CDT Tu Landeros MD [facility] CPT-61568 Level 3 Est. Patient 13:48:35 CDT Fab Morales DO [facility] CPT-78867 Level 4 Est. Patient 10:05:48 CDT Tu Landeros MD [facility] CPT-89112 Level 3 Est. Patient 13:38:42 CDT Marek BANKS [facility] CPT-27128 Level 5 Est. Patient 08:08:39 CDT Jerrica FRANCIS [facility] CPT-79434 Level 4 Est. Patient 14:23:38 CDT Tu Landeros MD [facility] CPT-90972 Level 3 Est. Patient 11:44:04 CDT Tu Landeros MD [facility] CPT-14683 Level 3 Est. Patient 11:03:20 C[employer] SORTER Tu Landeros MD [facility] CPT-11612 Level 3 Est. Patient 11:03:14 [employer] SORTER Tu Landeros MD [facility] CPT-00987 Level 3 Est. Patient 12:42:49 CDT Tu Landeros MD [facility] CPT-11682 Level 3 Est. Patient 11:52:06 CDT Tu Landeros MD [facility] CPT-73711 Level 3 Est. Patient 13:58:11 CDT Tu Landeros MD [facility] CPT-33554 Level 3 Est. Patient 17:50:07 CDT Fab Morales DO [facility] CPT-97629 Level 3 Est. Patient 12:06:29 CDT Elvira Cervantes MD PhD [facility] CPT-20929 Level 3 Est. Patient 15:50:32 CDT Tu Landeros MD [facility] CPT-48840 Level 4 Est. Patient 16:08:29 CDT Tu Landeros MD [facility] CPT-82804 Level 3 Est. Patient 16:04:19 CDT Tu Landeros MD [facility] CPT-50320 Level 3 Est. Patient 11:22:30 [employer] S[employer]TER Tu Landeros MD [facility] CPT-13983 Level 4 Est. Patient 16:24:02 [employer] S[employer]TER Tu Landeros MD [facility] CPT-16433 Level 3 Est. Patient 17:21:23 [employer]TER Tu Landeros MD [facility] Procedures Code Procedure Name Date Entry Date Standard Description CPT-22920 Postop F/U Visit 10:02:45 CDT CPT-LR Lesion Removal 09:02:56 CDT CPT-JTINJ Asp/Joint Injection 15:51:27 [employer] S[facility]TER CPT-OV Office Visit 15:52:02 [employer] S[facility]TER CPT-OV Office Visit 15:45:11 CDT CPT-000 Give Zostavax 14:09:06 CDT CPT-02309 Administration single or combination vaccine inc oral 15 :19:04 CDT CPT-63492 Zoster Vaccine (Zostavax) 15:19:04 CDT CPT-33636 Administration single or combination vaccine inc oral 20 :51:03 CDT CPT-79711 Influenza split virus > age 3 20:51:03 CDT CPT-54739 No Charge Offi Visit 14:52:03 CDT CPT-OV Office Visit 14:57:43 CDT CPT-OV Office Visit 15:22:32 CDT CPT-53671 Administration single or combination vaccine inc oral 11 :33:15 CDT CPT-69941 Influenza split virus > age 3 11:33:15 CDT
--- OUTSIDE RECORDS SUMMARY | 2018-04-25 17:56 | XMS REPORT | Clinical Summary ---
Author Author Admin, SACHI Organization [employer] Address Unknown Phone Unavailable Allergies, Adverse Reactions, [...] pain, left, acute ICD-719.46 Tessa Landeros MD PRESSURE ULCER UNSPECIFIED SITE ICD-707.00 Tessa Landeros MD Ear pain, bilateral ICD-388.70 Tessa Landeros MD Open wound of abdominal wall, anterior, complicated ICD-879.3 Tessa Landeros MD Sebaceous cyst ICD-706.2 Tessa Landeros MD Upper respiratory infection, viral ICD-465.9 Tessa Landeros MD Sinusitis - acute ICD-461.9 Tessa Landeros MD Leg pain, left ICD-729.5 Tessa Landeros MD Hot flashes ICD-627.2 Tessa Landeros MD Pain in unspecified foot [...] 1 po BID PRN Pain DICLOFENAC SODIUM 18684439619 Active Tu Landeros MD Active GABAPENTIN 100 MG CAPS 1 po TID GABAPENTIN 08387589640 Active Tu Landeros MD Active DICLOFENAC SODIUM 50 MG ORAL TBEC 1 po BID PRN Pain DICLOFENAC SODIUM 98033259264 No Longer Active Tu Landeros MD Active CYCLOBENZAPRINE HCL 10 MG ORAL TABS 1 po TID PRN Muscle Spasm CYCLOBENZAPRINE HCL 37375722519 No Longer Active Tu Landeros MD Active INVOKANA 100 MG ORAL TABS 1 po qd CANAGLIFLOZIN 12145688799 Active Tu Landeros MD Active GLIPIZIDE 5 MG ORAL TABS 1 po qd GLIPIZIDE 59647449379 No Longer Active Tu Landeros MD Active VENLAFAXINE HCL 75 MG ORAL TABS 1 po BID VENLAFAXINE HCL 92399586660 Active Tu Landeros MD Active GLIMEPIRIDE 1 MG ORAL TABS 1 po qd GLIMEPIRIDE 79902296446 No Longer Active Tu Landeros MD Active TRUE METRIX BLOOD GLUCOSE TEST INVITR STRP Test blood sugar BID Dx: E11.9 GLUCOSE BLOOD 79853774736 Active Tu Landeros MD Active TRUE METRIX AIR GLUCOSE METER W/DEVICE KIT Test blood glucose BID Dx: E11.9 BLOOD GLUCOSE MONITORING SUPPL 01294071775 Active Tu Landeros MD Active TRUETEST TEST INVITR STRP test blood sugar twice daily. DX 250.0 GLUCOSE BLOOD 44554328853 No Longer Active Mirna Stanley LPN Active TRUEDRAW LANCING DEVICE MISC test blood sugar twice daily dx: 250.00 LANCET DEVICES 19155369985 No Longer Active Mirna Stanley LPN Active ENALAPRIL MALEATE 20 MG TABS 2 po qd ENALAPRIL MALEATE 36895556563 Active Lesli Kellogg APRN Active SUPER B COMPLEX/VITAMIN C TABS 1 qd B COMPLEX-C 34837540467 No Longer Active uT Landeros MD Active ASPIRIN EC 81 MG ORAL TBEC 1 po qd ASPIRIN 73575851704 Active Tu Landeros MD Active GLUCOSAMINE 500 MG TABS 2 po qd GLUCOSAMINE Active Tu Landeros MD Active SIMVASTATIN 40 MG TABS 0.5 po qHS SIMVASTATIN 36047223750 Active Tu Landeros MD Active FISH OIL 1000 MG CAPS 1 po qd OMEGA-3 FATTY ACIDS 86115093556 Active Tu Landeros MD Active METFORMIN HCL 1000 MG TABS 1 po BID METFORMIN HCL 80879797643 Active Tu Landeros MD Active KLOR-CON 10 10 MEQ CR-TABS 2 po qd POTASSIUM CHLORIDE 23855063521 Active Tu Landeros MD Active FUROSEMIDE 40 MG TAB 1 po qd FUROSEMIDE 85575463316 Active Tu Landeros MD Active REQUIP 2 MG ORAL TABS 1 po qHS PRN Restless legs ROPINIROLE HCL 34008938669 Active Tu Landeros MD Active REQUIP 2 MG TABS Take one tablet at bedtime prn ROPINIROLE HCL 21735697521 No Longer Active Tu Landeros MD Active VENTOLIN HFA 108 (90 BASE) MCG/ACT AERS 1-2 puffs every 4 hours if needed for cough/congestion ALBUTEROL SULFATE 26206546534 No Longer Active Ambika Aden APRN Active ZITHROMAX 250 MG TAB 2 po today, then 1 po q days 2-5 AZITHROMYCIN 39382918276 No Longer Active Miranda Suresh APRN Active FLONASE 50 MCG/ACT SUSP 1 spray each nostril twice daily until bottle empty FLUTICASONE PROPIONATE 73570582059 No Longer Active Tu Landeros MD Active COLACE 100 MG CAP 1 po BID PRN Constipation DOCUSATE SODIUM 38965028520 Active Tu Landeros MD Active TRUERESULT BLOOD GLUCOSE W/DEVICE KIT test blood sugar twice daily dx 250.00 BLOOD GLUCOSE MONITORING SUPPL 16015357910 No Longer Active Tu Landeros MD Active TRUEDRAW LANCING DEVICE MISC Test twice a day dx 250.0 LANCET DEVICES 86142057705 No Longer Active Tu Landeros MD Active PREDNISONE 20 MG TAB 2 tablets once daily for 2 days, then 1 tablet once daily for 2 days PREDNISONE 16818227540 No Longer Active Tu Lnaderos MD Active DICLOFENAC SODIUM 50 MG TBEC 1 tablet by mouth three times a day as needed DICLOFENAC SODIUM 93569508941 No Longer Active Fab Morales DO Active EMBRACE BLOOD GLUCOSE TEST STRP test blood sugar twice daily DX 250.0 2014 GLUCOSE BLOOD 53710616830 No Longer Active Tu Landeros MD Active TRUETEST TEST STRP test blood sugar three times daily dx: 250.00 GLUCOSE BLOOD 71007412621 No Longer Active Suze Nicole RMMahendra Active TRUERESULT BLOOD GLUCOSE W/DEVICE KIT use to test blood sugar tid dx: 250.00 BLOOD GLUCOSE MONITORING SUPPL 44191563295 No Longer Active Suze Corey RMA Active ALIGN 4 MG CAPS 1 tid PROBIOTIC PRODUCT 84565892667 No Longer Active Shaun Sy MD Active CIPRO 500 MG TABS 1 bid x 14 days start 09-28-13 CIPROFLOXACIN HCL 65131874566 No Longer Active Shaun Sy MD Active TRAMADOL HCL 50 MG TABS 1-2 tablets every 6 hours as needed for pain TRAMADOL HCL 15496288138 Active Tu Landeros MD Active HYDROCODONE-ACETAMINOPHEN 5-325 MG TABS 1 tab by mouth every 6 hours as needed for pain HYDROCODONE-ACETAMINOPHEN 50741914357 No Longer Active Tu Landeros MD Active OMEPRAZOLE 20 MG CPDR 1 po q a.m. OMEPRAZOLE 71080978707 Active Fab Morales DO Active GABAPENTIN 100 MG CAPS 1 po bid GABAPENTIN 63948775245 No Longer Active Tu Landeros MD Active B-12 100 MCG TABS Take one by mouth daily CYANOCOBALAMIN 65870708506 No Longer Active Tu Landeros MD Active BACTRIM DS 800-160 MG TABS 1 bid x 14 day start 09-28-13 SULFAMETHOXAZOLE-TRIMETHOPRIM 10734896187 No Longer Active Tu Landeros MD Active CARVEDILOL 12.5 MG TABS 1 po BID CARVEDILOL 90239876322 Active Lesli Kellogg APRN Active TRILIPIX 135 MG CPDR 1 q hs CHOLINE FENOFIBRATE 45796846426 Active Tu Landeros MD Active FENOFIBRATE 145 MG TABS 1 po qd FENOFIBRATE 37083633793 No Longer Active JASPREET Perez Active OMEPRAZOLE 20 MG TBEC 1 PO 30 MIN BEFORE 1ST MEAL OMEPRAZOLE 22848478244 No Longer Active JASPREET Perez Active SIMVASTATIN 40 MG TABS Take one by mouth daily SIMVASTATIN 53310016377 No Longer Active JASPREET Perez Active VENLAFAXINE HCL 75 MG TABS 1 po BID VENLAFAXINE HCL 09933063570 No Longer Active JASPREET Perez Active CIPRO 500 MG TAB 1 tablet by mouth twice daily CIPROFLOXACIN HCL 39788761513 No Longer Active Tu Landeros MD Active VENLAFAXINE HCL 37.5 MG TABS 1 po BID VENLAFAXINE HCL 75127721285 No Longer Active Suzebianca Nicole RMA Active LAMISIL 250 MG TAB 1 po qd TERBINAFINE HCL 56263668840 No Longer Active Tu Landeros MD Active LORTAB 5 5-500 MG TABS 1/2 to 1 tablet by mouth every 4 hours as needed for pain HYDROCODONE-ACETAMINOPHEN 41127848599 No Longer Active Tu Landeros MD Active HYDROCODONE-ACETAMINOPHEN 5-500 MG TABS take one po Q 4-6 hours prn HYDROCODONE-ACETAMINOPHEN 74773260016 No Longer Active Tu Landeros MD Active BACTRIM DS 800-160 MG TABS 1 po BID x 7 days SULFAMETHOXAZOLE-TRIMETHOPRIM 88717955252 No Longer Active Tu Landeros MD Active VENLAFAXINE HCL 75 MG TABS 1 po BID VENLAFAXINE HCL 88952257057 No Longer Active Elvira Cervantes MD PhD Active TRAMADOL HCL 50 MG TABS 1 tablets every 6 hours as needed for pain TRAMADOL HCL 58982701959 No Longer Active Tu Landeros MD Active ACCU-CHEK FASTCLIX LANCETS MISC Use to check bloodsugar three times daily as needed LANCETS 07477980777 No Longer Active Tu Landeros MD Active ACCU-CHEK KEYONA PLUS STRP Use for testing bloodsugars three times daily as needed GLUCOSE BLOOD 28836069153 No Longer Active Tu Landeros MD Active ACCU-CHEK KEYONA PLUS W/DEVICE KIT Use for testing bloodsugars three times daily as needed BLOOD GLUCOSE MONITORING SUPPL 80855312206 No Longer Active Tu Landeros MD Active SPIRONOLACTONE 25 MG TAB 0.5 tablet by mouth daily SPIRONOLACTONE 81553637308 No Longer Active Tu Landeros MD Active ALPRAZOLAM 0.5 MG TABS 1 tab every 6hrs as needed ALPRAZOLAM 48424488668 No Longer Active Tu Landeros MD Active AUGMENTIN 875-125 MG TAB 1 tab by mouth twice daily with food AMOXICILLIN-POT CLAVULANATE 95559617015 No Longer Active Tu Lnaderos MD Active PREDNISONE 20 MG TAB 2 tabs daily for 3 days, 1 tab daily for 3 days, 1/2 tab daily for 2 days PREDNISONE 08005017189 No Longer Active Tu Landeros MD Active XANAX 0.5 MG TABS 1 tablet every 6 hrs prn ALPRAZOLAM 21513549246 No Longer Active Tu Landeros MD Active PREDNISONE 20 MG TAB 2 tabs daily for 3 days, 1 tab daily for 3 days, 1/2 tab daily for 2 days PREDNISONE 25672521618 No Longer Active Tu Landeros MD Active TRIAMCINOLONE ACETONIDE 0.1 % OINT Apply to affected areas TID for up to 2 weeks TRIAMCINOLONE ACETONIDE 51019553098 No Longer Active Tu Landeros MD Active LORTAB 5 5-500 MG TABS 1/2 to 1 tablet by mouth every 4 hours as needed for pain HYDROCODONE-ACETAMINOPHEN 95547589474 No Longer Active Tu Landeros MD Active MULTIVITAMINS TABS Take one by mouth daily MULTIPLE VITAMIN 21301229223 No Longer Active Tu Landeros MD Active MELATONIN 5 MG TABS Take one by mouth daily MELATONIN 39281166375 No Longer Active Tu Landeros MD Active SOMA 350 MG TAB 1 po q 6 hours prn spasm CARISOPRODOL 99214520726 No Longer Active Tu Landeros MD Active MECLIZINE HCL 25 MG CHEW TAB 1 four times a day as needed for dizziness 08/05 MECLIZINE HCL 42926822034 No Longer Active Fab Morales DO Active ANGEL BREEZE 2 TEST DISK test tid prn GLUCOSE BLOOD 79527684343 No Longer Active Negra Scott RN Active REGLAN 10 MG TAB 1 po TID PRN Nausea METOCLOPRAMIDE HCL 67763280378 No Longer Active Tu Landeros MD Active METFORMIN HCL 500 MG TABS 1 PO BID METFORMIN HCL 24568038987 No Longer Active Tu Landeros MD Active AMBIEN 10 MG TAB 1 tab by mouth at bedtime as needed for sleep ZOLPIDEM TARTRATE 08562589766 No Longer Active Tu Landeros MD Active FLUOXETINE HCL 40 MG CAPS 1 po q day FLUOXETINE HCL 40548993353 No Longer Active Mayra Terry Active TRILIPIX 135 MG CPDR 1 po qd CHOLINE FENOFIBRATE 14617710358 No Longer Active Tu Landeros MD Active AMBIEN 10 MG TAB 1 tab by mouth at bedtime as needed for sleep AMBIEN 10 MG TAB 601419 ZOLPIDEM TARTRATE Inactive METFORMIN HCL 500 MG TABS 1 PO BID METFORMIN HCL 500 MG TABS 114325 METFORMIN HCL Inactive REGLAN 10 MG TAB 1 po TID PRN Nausea REGLAN 10 MG TAB 292756 METOCLOPRAMIDE HCL Inactive MECLIZINE HCL 25 MG CHEW TAB 1 four times a day as needed for dizziness 08/05 MECLIZINE HCL 25 MG CHEW TAB 818971 MECLIZINE HCL Inactive SOMA 350 MG TAB 1 po q 6 hours prn spasm SOMA 350 MG TAB 440796 CARISOPRODOL Inactive MELATONIN 5 MG TABS Take one by mouth daily MELATONIN 5 MG TABS 462432 MELATONIN Inactive MULTIVITAMINS TABS Take one by mouth daily MULTIVITAMINS TABS MULTIPLE VITAMIN Inactive LORTAB 5 5-500 MG TABS 1/2 to 1 tablet by mouth every 4 hours as needed for pain LORTAB 5 5-500 MG TABS 913010 HYDROCODONE- ACETAMINOPHEN Inactive XANAX 0.5 MG TABS 1 tablet every 6 hrs prn XANAX 0.5 MG TABS 840081 ALPRAZOLAM Inactive AUGMENTIN 875-125 MG TAB 1 tab by mouth twice daily with food AUGMENTIN 875-125 MG TAB 227577 AMOXICILLIN-POT CLAVULANATE Inactive ALPRAZOLAM 0.5 MG TABS 1 tab every 6hrs as needed ALPRAZOLAM 0.5 MG TABS 541245 ALPRAZOLAM Inactive SPIRONOLACTONE 25 MG TAB 0.5 tablet by mouth daily SPIRONOLACTONE 25 MG TAB 157278 SPIRONOLACTONE Inactive ACCU-CHEK KEYONA PLUS W/DEVICE KIT Use for testing bloodsugars three times daily as needed ACCU-CHEK KEYONA PLUS W/DEVICE KIT BLOOD GLUCOSE MONITORING SUPPL Inactive ACCU-CHEK KEYONA PLUS STRP Use for testing bloodsugars three times daily as needed ACCU-CHEK KEYONA PLUS STRP GLUCOSE BLOOD Inactive ACCU-CHEK FASTCLIX LANCETS MISC Use to check bloodsugar three times daily as needed ACCU-CHEK FASTCLIX LANCETS MISC 31274924403 LANCETS Inactive TRAMADOL HCL 50 MG TABS 1 tablets every 6 hours as needed for pain TRAMADOL HCL 50 MG TABS 364387 TRAMADOL HCL Inactive VENLAFAXINE HCL 75 MG TABS 1 po BID VENLAFAXINE HCL 75 MG TABS 626734 VENLAFAXINE HCL Inactive HYDROCODONE-ACETAMINOPHEN 5-500 MG TABS take one po Q 4-6 hours prn HYDROCODONE-ACETAMINOPHEN 5-500 MG TABS 908198 HYDROCODONE- ACETAMINOPHEN Inactive LORTAB 5 5-500 MG TABS 1/2 to 1 tablet by mouth every 4 hours as needed for pain LORTAB 5 5-500 MG TABS 681584 HYDROCODONE- ACETAMINOPHEN Inactive LAMISIL 250 MG TAB 1 po qd LAMISIL 250 MG TAB 450955 TERBINAFINE HCL Inactive VENLAFAXINE HCL 37.5 MG TABS 1 po BID VENLAFAXINE HCL 37.5 MG TABS 753324 VENLAFAXINE HCL Inactive CIPRO 500 MG TAB 1 tablet by mouth twice daily CIPRO 500 MG TAB 044244 CIPROFLOXACIN HCL Inactive VENLAFAXINE HCL 75 MG TABS 1 po BID VENLAFAXINE HCL 75 MG TABS 885028 VENLAFAXINE HCL Inactive SIMVASTATIN 40 MG TABS Take one by mouth daily SIMVASTATIN 40 MG TABS 637062 SIMVASTATIN Inactive OMEPRAZOLE 20 MG TBEC 1 PO 30 MIN BEFORE 1ST MEAL OMEPRAZOLE 20 MG TBEC 192664 OMEPRAZOLE Inactive FENOFIBRATE 145 MG TABS 1 po qd FENOFIBRATE 145 MG TABS 162966 FENOFIBRATE Inactive BACTRIM DS 800-160 MG TABS 1 bid x 14 day start 09-28-13 BACTRIM DS 800-160 MG TABS 511040 SULFAMETHOXAZOLE-TRIMETHOPRIM Inactive B-12 100 MCG TABS Take one by mouth daily B-12 100 MCG TABS CYANOCOBALAMIN Inactive GABAPENTIN 100 MG CAPS 1 po bid GABAPENTIN 100 MG CAPS 682330 GABAPENTIN Inactive HYDROCODONE-ACETAMINOPHEN 5-325 MG TABS 1 tab by mouth every 6 hours as needed for pain HYDROCODONE-ACETAMINOPHEN 5-325 MG TABS 660866 HYDROCODONE-ACETAMINOPHEN Inactive CIPRO 500 MG TABS 1 bid x 14 days start 09-28-13 CIPRO 500 MG TABS 696962 CIPROFLOXACIN HCL Inactive ALIGN 4 MG CAPS [...] as needed DICLOFENAC SODIUM 50 MG TBEC 588915 DICLOFENAC SODIUM Inactive PREDNISONE 20 MG TAB 2 tablets once daily for 2 days, then 1 tablet once daily for 2 days PREDNISONE 20 MG TAB 001655 PREDNISONE Inactive TRUEDRAW LANCING DEVICE MISC Test twice a day dx 250.0 TRUEDRAW LANCING DEVICE MISC LANCET DEVICES Inactive TRUERESULT BLOOD GLUCOSE W/DEVICE KIT test blood sugar twice daily dx 250.00 TRUERESULT BLOOD GLUCOSE W/DEVICE KIT BLOOD GLUCOSE MONITORING SUPPL Inactive FLONASE 50 MCG/ACT SUSP 1 spray each nostril twice daily until bottle empty FLONASE 50 MCG/ACT SUSP 9492580 FLUTICASONE PROPIONATE Inactive VENTOLIN HFA 108 (90 BASE) MCG/ACT AERS 1-2 puffs every 4 hours if needed for cough/congestion VENTOLIN HFA 108 (90 BASE) MCG/ACT AERS ALBUTEROL SULFATE Inactive REQUIP 2 MG TABS Take one tablet at bedtime prn REQUIP 2 MG TABS 374462 ROPINIROLE HCL Inactive SUPER B COMPLEX/VITAMIN C TABS 1 qd SUPER B COMPLEX/ VITAMIN C TABS 36189731876 B COMPLEX-C Inactive TRUEDRAW LANCING DEVICE MISC test blood sugar twice daily dx: 250.00 TRUEDRAW LANCING DEVICE MISC LANCET DEVICES Inactive TRUETEST TEST INVITR STRP test blood sugar twice daily. DX 250.0 TRUETEST TEST INVITR STRP GLUCOSE BLOOD Inactive CYCLOBENZAPRINE HCL 10 MG ORAL TABS 1 po TID PRN Muscle Spasm CYCLOBENZAPRINE HCL 10 MG ORAL TABS 716331 CYCLOBENZAPRINE HCL Inactive DICLOFENAC SODIUM 50 MG ORAL TBEC 1 po BID PRN Pain DICLOFENAC SODIUM 50 MG ORAL TBEC 801052 DICLOFENAC SODIUM Inactive TRIAMCINOLONE ACETONIDE 0.1 % OINT Apply to affected areas TID for up to 2 weeks TRIAMCINOLONE ACETONIDE 0.1 % OINT 1553117 TRIAMCINOLONE ACETONIDE Inactive PREDNISONE 20 MG TAB 2 tabs daily for 3 days, 1 tab daily for 3 days, 1/2 tab daily for 2 days PREDNISONE 20 MG TAB 699353 PREDNISONE Inactive PREDNISONE 20 MG TAB 2 tabs daily for 3 days, 1 tab daily for 3 days, 1/2 tab daily for 2 days PREDNISONE 20 MG TAB 832391 PREDNISONE Inactive BACTRIM DS 800-160 MG TABS 1 po BID x 7 days BACTRIM DS 800-160 MG TABS 150282 SULFAMETHOXAZOLE-TRIMETHOPRIM Inactive ZITHROMAX 250 MG TAB 2 po today, then 1 po q days 2-5 ZITHROMAX 250 MG TAB 152316 AZITHROMYCIN Inactive Advance Directives Directive Description Start Date DISCUSSED WITH PATIENT -- NO DECISION MADE Immunizations Vaccine Administration Date Value Standard Description Seasonal influenza vaccine, injectable, containing preservative, for > 3 years old (Afluria, FluLaval, Fluzone, Fluvirin, Fluarix, Agriflu(>=18 yo)) Fluzone (>3 yrs.) [[id number]] Influenza, seasonal, injectable influenza immunization (Flu Vax) has been administered 02/22/2012 influenza virus vaccine, unspecified formulation Seasonal influenza vaccine, injectable, containing preservative, for > 3 years old (Afluria, FluLaval, Fluzone, Fluvirin, Fluarix, Agriflu(>=18 yo)) Fluzone (>3 yrs.) [[id number]] Influenza, seasonal, injectable Vital Signs Date Name [...] Magnesium - Chemistry sodium, serum 143 mmol/L 177-747 5416/01/10 creatinine, serum 1.06 mg/dL 0.55-1.30 alanine aminotransferase (SGPT), serum 42 U/L 12-78 aspartate aminotransferase (SGOT), serum 32 U/L 15-37 calcium, serum 9.3 mg/dL 8.5-10.1 bilirubin, serum, total 0.20 mg/dL 0.00-1.00 cholesterol, serum 177 mg/dL 926-940 6732/01/10 triglyceride, serum, fasting 320 mg/dL 30-200 HDL cholesterol, serum 46 mg/dL 32-96 LDL cholesterol, serum 67 mg/dL 0-130 carbon dioxide, venous blood 28.0 mmol/L 21.0-32.0 potassium, serum 4.5 mmol/L 3.5-5.2 chloride, serum 104 mmol/L 98-107 blood glucose 158 mg/dL 65-110 urea nitrogen, blood 23 mg/dL 7-18 Lab Report: COMPREHENSIVE METABOLIC PANEL, LIPID PANEL, HEMOGLOBIN A1c - Chemistry cholesterol, serum 135 mg/dL 856-794 2279/05/17 HDL cholesterol, serum 41 mg/dL > OR=46 triglyceride, serum, fasting 206 mg/dL <150 LDL cholesterol, serum 53 MG/DL (CALC) mg/dL <130 cholesterol/HDL ratio, serum 3.3 (calc) < OR=5.0 Lab Report: HGBA1C - Chemistry hemoglobin A1C, blood, as % of total hemoglobin 6.5 % 4.3-6.0 Lab Report: MicroAlb Random w/creat/6517 - Urinalysis microalbumin/creatinine ratio, urine 11 MCG/MG CREAT mg/L <30 microalbumin/total urine volume 21 mg/L Units converted. See lab report for original value. Encounters Code Encounter Date Provider Facility CPT-27610 Level 3 Est. Patient 14:20:36 CDT Tu Landreos MD [facility] CPT-09680 Level 4 Est. Patient 14:28:34 CDT Tu Landeros MD [facility] CPT-19532 Level 3 Est. Patient 13:33:09 CDT Tu Landeros MD [facility] CPT-09535 Level 4 Est. Patient 14:29:21 CDT Tu Landeros MD [facility] CPT-38266 Level 4 Est. Patient 09:08:17 TALCER Tu Landeros MD [facility] CPT-88588 Level 4 Est. Patient 14:40:19 CDT Tu Landeros MD [facility] CPT-10871 Level 4 Est. Patient 14:06:04 TALCER Tu Landeros MD [facility] CPT-79403 Level 3 Est. Patient 14:05:18 TALCER Tu Landeros MD [facility] CPT-96698 Level 3 Est. Patient 10:06:54 TALCER Miranda Suresh APRN [facility] CPT-99637 Level 4 Est. Patient 13:50:18 TALCER Tu Landeros MD [facility] CPT-70653 Level 3 Est. Patient 10:30:04 CDT Tu Landeros MD [facility] CPT-54916 Level 4 Est. Patient 11:03:38 CDT Tu Landeros MD [facility] CPT-58802 Level 3 Est. Patient 10:20:44 CDT Fab Morales DO [facility] CPT-19186 Level 4 Est. Patient 14:38:57 CDT Tu Landeros MD [facility] CPT-62442 Level 4 Est. Patient 14:27:39 TALCER Tu Landeros MD [facility] CPT-03942 Level 4 Est. Patient 09:45:25 CDT Tu Landeros MD [facility] CPT-02980 Level 4 Est. Patient 09:05:20 TALCER Tu Landeros MD [facility] CPT-50659 Level 4 Est. Patient 14:09:06 CDT Tu Landeros MD [facility] CPT-06750 Level 3 Est. Patient 13:36:54 CDT Tu Landeros MD [facility] CPT-07966 Level 3 Est. Patient 08:59:14 CDT Tu Landeros MD [facility] CPT-70978 Level 3 Est. Patient 13:48:35 CDT Fab Morales DO [facility] CPT-24944 Level 4 Est. Patient 10:05:48 CDT Tu Landeros MD [facility] CPT-33142 Level 3 Est. Patient 13:38:42 CDT Marek BANKS [facility] CPT-53908 Level 5 Est. Patient 08:08:39 CDT Jerrica FRANCIS [facility] CPT-32255 Level 4 Est. Patient 14:23:38 CDT Tu Landeros MD [facility] CPT-21309 Level 3 Est. Patient 11:44:04 CDT Tu Landeros MD [facility] CPT-91222 Level 3 Est. Patient 11:03:20 TALCER Tu Landeros MD [facility] CPT-70272 Level 3 Est. Patient 11:03:14 TALCER Tu Landeros MD [facility] CPT-72541 Level 3 Est. Patient 12:42:49 CDT Tu Landeros MD [facility] CPT-81135 Level 3 Est. Patient 11:52:06 CDT Tu Landeros MD [facility] CPT-23384 Level 3 Est. Patient 13:58:11 CDT Tu Landeros MD [facility] CPT-68791 Level 3 Est. Patient 17:50:07 CDT Fab Morales DO [facility] CPT-36680 Level 3 Est. Patient 12:06:29 CDT Elvira Cervantes MD, PhD [facility] CPT-38254 Level 3 Est. Patient 15:50:32 CDT Tu Landeros MD [facility] CPT-85251 Level 4 Est. Patient 16:08:29 CDT Tu Landeros MD [facility] CPT-25558 Level 3 Est. Patient 16:04:19 CDT Tu Landeros MD [facility] CPT-47588 Level 3 Est. Patient 11:22:30 TALCER Tu Landeros MD [facility] CPT-90094 Level 4 Est. Patient 16:24:02 TALCER Tu Landeros MD [facility] CPT-76831 Level 3 Est. Patient 17:21:23 TALCER Tu Landeros MD [facility] Procedures Code Procedure Name Date Entry Date Standard Description CPT-04742 Shoulder, right, comp min 2V - XRAY USE ONLY 13:50:22 CDT CPT-G0009 Administration of Pneumococcal Vaccine 15:08:26 CDT CPT-63063 Prevnar 13 Intramuscular Suspension 15:08:26 CDT 10/08 CPT-G0439 [facility] Annual Wellness Exam 14:29:22 CDT CPT-79155 Venipuncture Draw Fee 13:15:35 CDT CPT-87951 Magnesium - LAB USE ONLY 11:14:20 TALCER CPT-06140 Lipid - LAB USE ONLY 11:14:20 TALCER CPT-74574 HGBA1C - LAB USE ONLY 11:14:20 TALCER CPT-85180 CMP - LAB USE ONLY 11:14:19 TALCER CPT-10659 CBC - LAB USE ONLY 11:14:19 TALCER CPT-05130 Venipuncture Draw Fee 11:14:18 TALCER CPT-91963 First Vx - Ix admin for Medicare patients 16:46:52 CDT CPT-65699 Fluzone Preservative Free Intramuscular Suspension 16:46 :51 CDT CPT-12267 CBC - LAB USE ONLY 17:14:46 CDT CPT-52632 HGBA1C - LAB USE ONLY 17:14:46 CDT CPT-40130 Venipuncture Draw Fee 17:14:46 CDT CPT-G0438 Initial Annual Wellness Exam 14:13:04 CDT CPT-71215 Breathing Tx 10:06:54 TALCER CPT-68971 Postop F/U Visit 10:02:45 CDT CPT-LR Lesion Removal 09:02:56 CDT CPT-JTINJ Asp/Joint Injection 15:51:27 TALCER CPT-OV Office Visit 15:52:02 TALCER CPT-OV Office Visit 15:45:11 CDT CPT-000 Give Zostavax 14:09:06 CDT CPT-19261 Administration single or combination vaccine inc oral 15 :19:04 CDT CPT-07192 Zoster Vaccine (Zostavax) 15:19:04 CDT CPT-20994 Administration single or combination vaccine inc oral 20 :51:03 CDT CPT-54150 Influenza split virus > age 3 20:51:03 CDT CPT-78053 No Charge Offi Visit 14:52:03 CDT CPT-OV Office Visit 14:57:43 CDT CPT-OV Office Visit 15:22:32 CDT CPT-80522 Administration single or combination vaccine inc oral 11 :33:15 CDT CPT-19206 Influenza split virus > age 3 11:33:15 CDT
--- OUTSIDE RECORDS SUMMARY | 2018-04-25 17:58 | XMS REPORT | Clinical Summary ---
Author Author Admin, SACHI Organization [employer] Address Unknown Phone Unavailable Allergies, Adverse Reactions, [...] po TID PRN Muscle Spasm CYCLOBENZAPRINE HCL 83979477529 Active Tu Landeros MD Active DICLOFENAC SODIUM 50 MG ORAL TBEC 1 po BID PRN Pain DICLOFENAC SODIUM 65641777893 Delores Landeros MD Active INVOKANA 100 MG ORAL TABS 1 po qd CANAGLIFLOZIN 93511644701 Active Tu Landeros MD Active GLIPIZIDE 5 MG ORAL TABS 1 po qd GLIPIZIDE 12207866624 No Longer Active Tu Landeros MD Active VENLAFAXINE HCL 75 MG ORAL TABS 1 po BID VENLAFAXINE HCL 57800992484 Active Tu Landeros MD Active GLIMEPIRIDE 1 MG ORAL TABS 1 po qd GLIMEPIRIDE 25725827804 No Longer Active Tu Landeros MD Active TRUE METRIX BLOOD GLUCOSE TEST INVITR STRP Test blood sugar BID Dx: E11.9 GLUCOSE BLOOD 84298021006 Active Tu Landeros MD Active TRUE METRIX AIR GLUCOSE METER W/DEVICE KIT Test blood glucose BID Dx: E11.9 BLOOD GLUCOSE MONITORING SUPPL 11354481318 Active Tu Landeros MD Active TRUETEST TEST INVITR STRP test blood sugar twice daily. DX 250.0 GLUCOSE BLOOD 82447104692 No Longer Active Mirna Stanley LPN Active TRUEDRAW LANCING DEVICE MISC test blood sugar twice daily dx: 250.00 LANCET DEVICES 13404043054 No Longer Active Mirna Stanley LPN Active ENALAPRIL MALEATE 20 MG TABS 2 po qd ENALAPRIL MALEATE 11995568644 Active Tu Landeros MD Active SUPER B COMPLEX/VITAMIN C TABS 1 qd B COMPLEX-C 19603338940 No Longer Active Tu Landeros MD Active ASPIRIN EC 81 MG ORAL TBEC 1 po qd ASPIRIN 77759320792 Active Tu Landeros MD Active GLUCOSAMINE 500 MG TABS 2 po qd GLUCOSAMINE Active Tu Landeros MD Active SIMVASTATIN 40 MG TABS 0.5 po qHS SIMVASTATIN 96375043650 Active Tu Landeros MD Active FISH OIL 1000 MG CAPS 1 po qd OMEGA-3 FATTY ACIDS 37356958011 Active Tu Landeros MD Active METFORMIN HCL 1000 MG TABS 1 po BID METFORMIN HCL 24644150326 Active Tu Landeros MD Active KLOR-CON 10 10 MEQ CR-TABS 2 po qd POTASSIUM CHLORIDE 60376216724 Active Tu Landeros MD Active FUROSEMIDE 40 MG TAB 1 po qd FUROSEMIDE 79775078162 Active Tu Landeros MD Active REQUIP 2 MG ORAL TABS 1 po qHS PRN Restless legs ROPINIROLE HCL 23427133666 Active Tu Landeros MD Active GABAPENTIN 100 MG CAPS 1 po BID GABAPENTIN 59032244653 Active Tu Landeros MD Active REQUIP 2 MG TABS Take one tablet at bedtime prn ROPINIROLE HCL 64639667019 No Longer Active Tu Landeros MD Active VENTOLIN HFA 108 (90 BASE) MCG/ACT AERS 1-2 puffs every 4 hours if needed for cough/congestion ALBUTEROL SULFATE 18050092355 No Longer Active Ambika Aden APRN Active ZITHROMAX 250 MG TAB 2 po today, then 1 po q days 2-5 AZITHROMYCIN 10661231018 No Longer Active Miranda Suresh APRN Active FLONASE 50 MCG/ACT SUSP 1 spray each nostril twice daily until bottle empty FLUTICASONE PROPIONATE 87465212130 No Longer Active Tu Landeros MD Active COLACE 100 MG CAP 1 po BID PRN Constipation DOCUSATE SODIUM 48065722037 Active Tu Landeros MD Active TRUERESULT BLOOD GLUCOSE W/DEVICE KIT test blood sugar twice daily dx 250.00 BLOOD GLUCOSE MONITORING SUPPL 92108474327 No Longer Active Tu Landeros MD Active TRUEDRAW LANCING DEVICE MISC Test twice a day dx 250.0 LANCET DEVICES 08762139869 No Longer Active Tu Landeros MD Active PREDNISONE 20 MG TAB 2 tablets once daily for 2 days, then 1 tablet once daily for 2 days PREDNISONE 17790300951 No Longer Active Tu Landeros MD Active DICLOFENAC SODIUM 50 MG TBEC 1 tablet by mouth three times a day as needed DICLOFENAC SODIUM 14615199423 No Longer Active Fab W Andrew DO Active EMBRACE BLOOD GLUCOSE TEST STRP test blood sugar twice daily DX 250.0 2014 GLUCOSE BLOOD 69924754984 No Longer Active Tu Landeros MD Active TRUETEST TEST STRP test blood sugar three times daily dx: 250.00 GLUCOSE BLOOD 29711873152 No Longer Active Suze VOGEL Active TRUERESULT BLOOD GLUCOSE W/DEVICE KIT use to test blood sugar tid dx: 250.00 BLOOD GLUCOSE MONITORING SUPPL 86534892927 No Longer Active Suze Hardenehart RMA Active ALIGN 4 MG CAPS 1 tid PROBIOTIC PRODUCT 25921973964 No Longer Active Shaun Sy MD Active CIPRO 500 MG TABS 1 bid x 14 days start 09-28-13 CIPROFLOXACIN HCL 92277420241 No Longer Active Shaun Sy MD Active TRAMADOL HCL 50 MG TABS 1-2 tablets every 6 hours as needed for pain TRAMADOL HCL 19160397030 Active Tu Landeros MD Active HYDROCODONE-ACETAMINOPHEN 5-325 MG TABS 1 tab by mouth every 6 hours as needed for pain HYDROCODONE-ACETAMINOPHEN 42479236406 No Longer Active Tu Landeros MD Active OMEPRAZOLE 20 MG CPDR 1 po q a.m. OMEPRAZOLE 61620530634 Active Lesli Kellogg APRN Active GABAPENTIN 100 MG CAPS 1 po bid GABAPENTIN 85067697800 No Longer Active Tu Landeros MD Active B-12 100 MCG TABS Take one by mouth daily CYANOCOBALAMIN 67558977682 No Longer Active Tu Landeros MD Active BACTRIM DS 800-160 MG TABS 1 bid x 14 day start 09-28-13 SULFAMETHOXAZOLE-TRIMETHOPRIM 07421481286 No Longer Active Tu Landeros MD Active CARVEDILOL 12.5 MG TABS 1 po BID CARVEDILOL 24616753023 Active Tu Landeros MD Active TRILIPIX 135 MG CPDR 1 q hs CHOLINE FENOFIBRATE 72426605975 Active Tu Landeros MD Active FENOFIBRATE 145 MG TABS 1 po qd FENOFIBRATE 48266019747 No Longer Active JASPREET Perez Active OMEPRAZOLE 20 MG TBEC 1 PO 30 MIN BEFORE 1ST MEAL OMEPRAZOLE 19139912224 No Longer Active JASPREET Perez Active SIMVASTATIN 40 MG TABS Take one by mouth daily SIMVASTATIN 28144540139 No Longer Active JASPREET Perez Active VENLAFAXINE HCL 75 MG TABS 1 po BID VENLAFAXINE HCL 67565860607 No Longer Active JASPREET Perez Active CIPRO 500 MG TAB 1 tablet by mouth twice daily CIPROFLOXACIN HCL 04068585984 No Longer Active Tu Landeros MD Active VENLAFAXINE HCL 37.5 MG TABS 1 po BID VENLAFAXINE HCL 39910304647 No Longer Active [facility] Active LAMISIL 250 MG TAB 1 po qd TERBINAFINE HCL 76179617487 No Longer Active Tu Landeros MD Active LORTAB 5 5-500 MG TABS 1/2 to 1 tablet by mouth every 4 hours as needed for pain HYDROCODONE-ACETAMINOPHEN 24807537850 No Longer Active Tu Landeros MD Active HYDROCODONE-ACETAMINOPHEN 5-500 MG TABS take one po Q 4-6 hours prn HYDROCODONE-ACETAMINOPHEN 72971480421 No Longer Active Tu Landeros MD Active BACTRIM DS 800-160 MG TABS 1 po BID x 7 days SULFAMETHOXAZOLE-TRIMETHOPRIM 12204608935 No Longer Active Tu Landeros MD Active VENLAFAXINE HCL 75 MG TABS 1 po BID VENLAFAXINE HCL 09645271135 No Longer Active Elvira Cervantes MD PhD Active TRAMADOL HCL 50 MG TABS 1 tablets every 6 hours as needed for pain TRAMADOL HCL 12240745755 No Longer Active Tu Landeros MD Active ACCU-CHEK FASTCLIX LANCETS MISC Use to check bloodsugar three times daily as needed LANCETS 18159805206 No Longer Active Tu Landeros MD Active ACCU-CHEK KEYONA PLUS STRP Use for testing bloodsugars three times daily as needed GLUCOSE BLOOD 05183857407 No Longer Active Tu Landeros MD Active ACCU-CHEK KEYONA PLUS W/DEVICE KIT Use for testing bloodsugars three times daily as needed BLOOD GLUCOSE MONITORING SUPPL 45086798056 No Longer Active Tu Landeros MD Active SPIRONOLACTONE 25 MG TAB 0.5 tablet by mouth daily SPIRONOLACTONE 70050218465 No Longer Active Tu Landeros MD Active ALPRAZOLAM 0.5 MG TABS 1 tab every 6hrs as needed ALPRAZOLAM 03153228946 No Longer Active Tu Landeros MD Active AUGMENTIN 875-125 MG TAB 1 tab by mouth twice daily with food AMOXICILLIN-POT CLAVULANATE 68574718773 No Longer Active Tu Landeros MD Active PREDNISONE 20 MG TAB 2 tabs daily for 3 days, 1 tab daily for 3 days, 1/2 tab daily for 2 days PREDNISONE 42617106914 No Longer Active Tu Landeros MD Active XANAX 0.5 MG TABS 1 tablet every 6 hrs prn ALPRAZOLAM 19873228637 No Longer Active Tu Landeros MD Active PREDNISONE 20 MG TAB 2 tabs daily for 3 days, 1 tab daily for 3 days, 1/2 tab daily for 2 days PREDNISONE 71233115112 No Longer Active Tu Landeros MD Active TRIAMCINOLONE ACETONIDE 0.1 % OINT Apply to affected areas TID for up to 2 weeks TRIAMCINOLONE ACETONIDE 89333411359 No Longer Active Tu Landeros MD Active LORTAB 5 5-500 MG TABS 1/2 to 1 tablet by mouth every 4 hours as needed for pain HYDROCODONE-ACETAMINOPHEN 82287779578 No Longer Active Tu Landeros MD Active MULTIVITAMINS TABS Take one by mouth daily MULTIPLE VITAMIN 80504698473 No Longer Active Tu Landeros MD Active MELATONIN 5 MG TABS Take one by mouth daily MELATONIN 62258812074 No Longer Active Tu Landeros MD Active SOMA 350 MG TAB 1 po q 6 hours prn spasm CARISOPRODOL 60323477996 No Longer Active Tu Landeros MD Active MECLIZINE HCL 25 MG CHEW TAB 1 four times a day as needed for dizziness 08/05 MECLIZINE HCL 56188172288 No Longer Active Fab Morales DO Active ANGEL BREEZE 2 TEST DISK test tid prn GLUCOSE BLOOD 37244608733 No Longer Active Negra Scott RN Active REGLAN 10 MG TAB 1 po TID PRN Nausea METOCLOPRAMIDE HCL 76694728090 No Longer Active Tu Landeros MD Active METFORMIN HCL 500 MG TABS 1 PO BID METFORMIN HCL 76949527812 No Longer Active Tu Landeros MD Active AMBIEN 10 MG TAB 1 tab by mouth at bedtime as needed for sleep ZOLPIDEM TARTRATE 59522853165 No Longer Active Tu Landeros MD Active FLUOXETINE HCL 40 MG CAPS 1 po q day FLUOXETINE HCL 71473449522 No Longer Active Mayra [place] Active TRILIPIX 135 MG CPDR 1 po qd CHOLINE FENOFIBRATE 41884984130 No Longer Active Tu Landeros MD Active AMBIEN 10 MG TAB 1 tab by mouth at bedtime as needed for sleep AMBIEN 10 MG TAB 369071 ZOLPIDEM TARTRATE Inactive METFORMIN HCL 500 MG TABS 1 PO BID METFORMIN HCL 500 MG TABS 316053 METFORMIN HCL Inactive REGLAN 10 MG TAB 1 po TID PRN Nausea REGLAN 10 MG TAB 415924 METOCLOPRAMIDE HCL Inactive MECLIZINE HCL 25 MG CHEW TAB 1 four times a day as needed for dizziness 08/05 MECLIZINE HCL 25 MG CHEW TAB 116064 MECLIZINE HCL Inactive SOMA 350 MG TAB 1 po q 6 hours prn spasm SOMA 350 MG TAB 614764 CARISOPRODOL Inactive MELATONIN 5 MG TABS Take one by mouth daily MELATONIN 5 MG TABS 380358 MELATONIN Inactive MULTIVITAMINS TABS Take one by mouth daily MULTIVITAMINS TABS MULTIPLE VITAMIN Inactive LORTAB 5 5-500 MG TABS 1/2 to 1 tablet by mouth every 4 hours as needed for pain LORTAB 5 5-500 MG TABS HYDROCODONE- ACETAMINOPHEN Inactive XANAX 0.5 MG TABS 1 tablet every 6 hrs prn XANAX 0.5 MG TABS 853927 ALPRAZOLAM Inactive AUGMENTIN 875-125 MG TAB 1 tab by mouth twice daily with food AUGMENTIN 875-125 MG TAB 826454 AMOXICILLIN-POT CLAVULANATE Inactive ALPRAZOLAM 0.5 MG TABS 1 tab every 6hrs as needed ALPRAZOLAM 0.5 MG TABS 223031 ALPRAZOLAM Inactive SPIRONOLACTONE 25 MG TAB 0.5 tablet by mouth daily SPIRONOLACTONE 25 MG TAB 921678 SPIRONOLACTONE Inactive ACCU-CHEK KEYONA PLUS W/DEVICE KIT Use for testing bloodsugars three times daily as needed ACCU-CHEK KEYONA PLUS W/DEVICE KIT BLOOD GLUCOSE MONITORING SUPPL Inactive ACCU-CHEK KEYONA PLUS STRP Use for testing bloodsugars three times daily as needed ACCU-CHEK KEYONA PLUS STRP GLUCOSE BLOOD Inactive ACCU-CHEK FASTCLIX LANCETS MISC Use to check bloodsugar three times daily as needed ACCU-CHEK FASTCLIX LANCETS MISC 40511165760 [facility] In[facility] TRAMADOL HCL 50 MG TABS 1 tablets every 6 hours as needed for pain TRAMADOL HCL 50 MG TABS 023241 TRAMADOL HCL Inactive VENLAFAXINE HCL 75 MG TABS 1 po BID VENLAFAXINE HCL 75 MG TABS 889686 VENLAFAXINE HCL Inactive HYDROCODONE-ACETAMINOPHEN 5-500 MG TABS take one po Q 4-6 hours prn HYDROCODONE-ACETAMINOPHEN 5-500 MG TABS HYDROCODONE- ACETAMINOPHEN Inactive LORTAB 5 5-500 MG TABS 1/2 to 1 tablet by mouth every 4 hours as needed for pain LORTAB 5 5-500 MG TABS HYDROCODONE- ACETAMINOPHEN Inactive LAMISIL 250 MG TAB 1 po qd LAMISIL 250 MG TAB 732333 TERBINAFINE HCL Inactive VENLAFAXINE HCL 37.5 MG TABS 1 po BID VENLAFAXINE HCL 37.5 MG TABS 876326 VENLAFAXINE HCL Inactive CIPRO 500 MG TAB 1 tablet by mouth twice daily CIPRO 500 MG TAB 477358 CIPROFLOXACIN HCL Inactive VENLAFAXINE HCL 75 MG TABS 1 po BID VENLAFAXINE HCL 75 MG TABS 506596 VENLAFAXINE HCL Inactive SIMVASTATIN 40 MG TABS Take one by mouth daily SIMVASTATIN 40 MG TABS 602262 SIMVASTATIN Inactive OMEPRAZOLE 20 MG TBEC 1 PO 30 MIN BEFORE 1ST MEAL OMEPRAZOLE 20 MG TBEC 103982 OMEPRAZOLE Inactive FENOFIBRATE 145 MG TABS 1 po qd FENOFIBRATE 145 MG TABS 385638 FENOFIBRATE Inactive BACTRIM DS 800-160 MG TABS 1 bid x 14 day start 09-28-13 BACTRIM DS 800-160 MG TABS 174659 SULFAMETHOXAZOLE-TRIMETHOPRIM Inactive B-12 100 MCG TABS Take one by mouth daily B-12 100 MCG TABS CYANOCOBALAMIN Inactive GABAPENTIN 100 MG CAPS 1 po bid GABAPENTIN 100 MG CAPS 153678 GABAPENTIN Inactive HYDROCODONE-ACETAMINOPHEN 5-325 MG TABS 1 tab by mouth every 6 hours as needed for pain HYDROCODONE-ACETAMINOPHEN 5-325 MG TABS 221800 HYDROCODONE-ACETAMINOPHEN Inactive CIPRO 500 MG TABS 1 bid x 14 days start 09-28-13 CIPRO 500 MG TABS 987717 CIPROFLOXACIN HCL Inactive ALIGN 4 MG CAPS [...] as needed DICLOFENAC SODIUM 50 MG TBEC 322013 DICLOFENAC SODIUM Inactive PREDNISONE 20 MG TAB 2 tablets once daily for 2 days, then 1 tablet once daily for 2 days PREDNISONE 20 MG TAB 778693 PREDNISONE Inactive TRUEDRAW LANCING DEVICE MISC Test twice a day dx 250.0 TRUEDRAW LANCING DEVICE MISC LANCET DEVICES Inactive TRUERESULT BLOOD GLUCOSE W/DEVICE KIT test blood sugar twice daily dx 250.00 TRUERESULT BLOOD GLUCOSE W/DEVICE KIT BLOOD GLUCOSE MONITORING SUPPL Inactive FLONASE 50 MCG/ACT SUSP 1 spray each nostril twice daily until bottle empty FLONASE 50 MCG/ACT SUSP 1047301 FLUTICASONE PROPIONATE Inactive VENTOLIN HFA 108 (90 BASE) MCG/ACT AERS 1-2 puffs every 4 hours if needed for cough/congestion VENTOLIN HFA 108 (90 BASE) MCG/ACT AERS ALBUTEROL SULFATE Inactive REQUIP 2 MG TABS Take one tablet at bedtime prn REQUIP 2 MG TABS 209691 ROPINIROLE HCL Inactive SUPER B COMPLEX/VITAMIN C TABS 1 qd SUPER B COMPLEX/ VITAMIN C TABS 57636790413 B COMPLEX-C Inactive TRUEDRAW LANCING DEVICE MISC test blood sugar twice daily dx: 250.00 TRUEDRAW LANCING DEVICE MISC LANCET DEVICES Inactive TRUETEST TEST INVITR STRP test blood sugar twice daily. DX 250.0 TRUETEST TEST INVITR STRP GLUCOSE BLOOD Inactive TRIAMCINOLONE ACETONIDE 0.1 % OINT Apply to affected areas TID for up to 2 weeks TRIAMCINOLONE ACETONIDE 0.1 % OINT 1519605 TRIAMCINOLONE ACETONIDE Inactive PREDNISONE 20 MG TAB 2 tabs daily for 3 days, 1 tab daily for 3 days, 1/2 tab daily for 2 days PREDNISONE 20 MG TAB 456185 PREDNISONE Inactive PREDNISONE 20 MG TAB 2 tabs daily for 3 days, 1 tab daily for 3 days, 1/2 tab daily for 2 days PREDNISONE 20 MG TAB 809241 PREDNISONE Inactive BACTRIM DS 800-160 MG TABS 1 po BID x 7 days BACTRIM DS 800-160 MG TABS 002802 SULFAMETHOXAZOLE-TRIMETHOPRIM Inactive ZITHROMAX 250 MG TAB 2 po today, then 1 po q days 2-5 ZITHROMAX 250 MG TAB 5036356 AZITHROMYCIN Inactive Advance Directives Directive Description Start Date DISCUSSED WITH PATIENT -- NO DECISION MADE Immunizations Vaccine Administration Date Value Standard Description Seasonal influenza vaccine, injectable, containing preservative, for > 3 years old (Afluria, FluLaval, Fluzone, Fluvirin, Fluarix, Agriflu(>=18 yo)) Fluzone (>3 yrs.) [AFH017] Influenza, seasonal, injectable influenza immunization (Flu Vax) has been administered 02/22/2012 influenza virus vaccine, unspecified formulation Seasonal influenza vaccine, injectable, containing preservative, for > 3 years old (Afluria, FluLaval, Fluzone, Fluvirin, Fluarix, Agriflu(>=18 yo)) Fluzone (>3 yrs.) [SOP949] Influenza, seasonal, injectable Vital Signs Date Name [...] Magnesium - Chemistry sodium, serum 143 mmol/L 361-484 3279/01/10 creatinine, serum 1.06 mg/dL 0.55-1.30 alanine aminotransferase (SGPT), serum 42 U/L 12-78 aspartate aminotransferase (SGOT), serum 32 U/L 15-37 calcium, serum 9.3 mg/dL 8.5-10.1 bilirubin, serum, total 0.20 mg/dL 0.00-1.00 cholesterol, serum 177 mg/dL 208-337 3980/01/10 triglyceride, serum, fasting 320 mg/dL 30-200 HDL cholesterol, serum 46 mg/dL 32-96 LDL cholesterol, serum 67 mg/dL 0-130 carbon dioxide, venous blood 28.0 mmol/L 21.0-32.0 potassium, serum 4.5 mmol/L 3.5-5.2 chloride, serum 104 mmol/L 98-107 blood glucose 158 mg/dL 65-110 urea nitrogen, blood 23 mg/dL 7- Lab Report: COMPREHENSIVE METABOLIC PANEL, LIPID PANEL, HEMOGLOBIN A1c - Chemistry cholesterol, serum 135 mg/dL 000-557 4091/05/17 HDL cholesterol, serum 41 mg/dL > OR=46 [...] 4.3 mmol/L 3.5-5.2 sodium, serum 140 mmol/L 845-588 4212/09/07 hemoglobin A1C, blood, as % of total hemoglobin 7.4 % 4.3-6.0 Lab Report: MicroAlb Random w/creat/6517 - Urinalysis microalbumin/total urine volume 21 mg/L Units converted. See lab report for original value. microalbumin/creatinine ratio, urine 11 MCG/MG CREAT mg/L <30 Encounters Code Encounter Date Provider Facility CPT-97770 Level 3 Est. Patient 13:33:09 CDT Tu Landeros MD [facility] CPT-84568 Level 4 Est. Patient 14:29:21 CDT Tu Landeros MD [facility] CPT-05135 Level 4 Est. 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 Patient 14:40:19 CDT Tu Landeros MD [facility] CPT-43773 Level 4 Est. Patient 14:06:04 HOUSEKEE[employer] C[employer] Tu Landeros MD [facility] CPT-96707 Level 3 Est. Patient 14:05:18 HOU[employer]KEEPER C[employer] Tu Landeros MD [facility] CPT-66699 Level 3 Est. Patient 10:06:54 [facility] Level 4 Est. 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 Patient 10:30:04 CDT Tu Landeros MD [facility] CPT-67572 Level 4 Est. Patient 11:03:38 CDT Tu Landeros MD [facility] CPT-46107 Level 3 Est. Patient 10:20:44 CDT Fab Morales DO [facility] CPT-01932 Level 4 Est. Patient 14:38:57 CDT Tu Landeros MD [facility] CPT-21544 Level 4 Est. Patient 14:27:39 HOUSEKEEPER C[employer] Tu Landeros MD [facility] CPT-17639 Level 4 Est. Patient 09:45:25 CDT Tu Landeros MD [facility] CPT-73213 Level 4 Est. 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 Patient 14:09:06 CDT Tu Landeros MD [facility] CPT-86693 Level 3 Est. Patient 13:36:54 CDT Tu Landeros MD [facility] CPT-99009 Level 3 Est. Patient 08:59:14 CDT Tu Landeros MD [facility] CPT-66422 Level 3 Est. Patient 13:48:35 CDT Fab Morales DO [facility] CPT-28510 Level 4 Est. Patient 10:05:48 CDT Tu Landeros MD [facility] CPT-94686 Level 3 Est. Patient 13:38:42 CDT Marek BANKS [facility] CPT-18908 Level 5 Est. Patient 08:08:39 CDT Jerrica FRANCIS [facility] CPT-49881 Level 4 Est. Patient 14:23:38 CDT Tu Landeros MD [facility] CPT-59576 Level 3 Est. Patient 11:44:04 CDT Tu Landeros MD [facility] CPT-47876 Level 3 Est. 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 Patient 12:42:49 CDT Tu Landeros MD [facility] CPT-60399 Level 3 Est. Patient 11:52:06 CDT Tu Landeros MD [facility] CPT-27841 Level 3 Est. Patient 13:58:11 CDT Tu Landeros MD [facility] CPT-71971 Level 3 Est. Patient 17:50:07 CDT Fab Morales DO [facility] CPT-12658 Level 3 Est. Patient 12:06:29 CDT Elvira Cervantes MD [facility] CPT-13014 Level 3 Est. Patient 15:50:32 CDT Tu Landeros MD [facility] CPT-55947 Level 4 Est. Patient 16:08:29 CDT Tu Landeros MD [facility] CPT-91037 Level 3 Est. Patient 16:04:19 CDT Tu Landeros MD [facility] CPT-84238 Level 3 Est. 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 Tu Landeros MD [facility] Procedures Code Procedure Name Date Entry Date Standard Description CPT-90157 Shoulder, right, comp min 2V - XRAY USE ONLY 13:50:22 CDT CPT-G0009 Administration of Pneumococcal Vaccine 15:08:26 CDT CPT-09298 Prevnar 13 Intramuscular Suspension 15:08:26 CDT 10/08 CPT-G0439 [facility] Annual Wellness Exam 14:29:22 CDT CPT-32798 Venipuncture Draw Fee 13:15:35 CDT CPT-30992 Magnesium - LAB USE ONLY 11:14:20 HOUSEKEEPER CAREG[employer] CPT-35070 Lipid - LAB USE ONLY 11:14:20 HOUSEKEEPER CAREG[employer] CPT-18262 HGBA1C - LAB USE ONLY 11:14:20 HOUSEKEEPER CAREG[employer] CPT-47011 CMP - LAB USE ONLY 11:14:19 HOUSEKEEPER CAREG[employer] CPT-90955 CBC - LAB USE ONLY 11:14:19 HOUSEKEEPER CAREG[employer] CPT-52228 Venipuncture Draw Fee 11:14:18 HOUSEKEEPER CAREG[employer] CPT-08385 First Vx - Ix admin for Medicare patients 16:46:52 CDT CPT-96265 Fluzone Preservative Free Intramuscular Suspension 16:46 :51 CDT CPT-33669 CBC - LAB USE ONLY 17:14:46 CDT CPT-12940 HGBA1C - LAB USE ONLY 17:14:46 CDT CPT-63835 Venipuncture Draw Fee 17:14:46 CDT CPT-G0438 Initial Annual Wellness Exam 14:13:04 CDT CPT-32091 Breathing Tx 10:06:54 HOUSEKEEPER CAREG[employer] CPT-77090 Postop F/U Visit 10:02:45 CDT CPT-LR Lesion Removal 09:02:56 CDT CPT-JTINJ Asp/Joint Injection 15:51:27 HOUSEKEEPER CAREG[employer] CPT-OV Office Visit 15:52:02 HOUSEKEEPER CAREG[employer] CPT-OV Office Visit 15:45:11 CDT CPT-000 Give Zostavax 14:09:06 CDT CPT-42421 Administration single or combination vaccine inc oral 15 :19:04 CDT CPT-12562 Zoster Vaccine (Zostavax) 15:19:04 CDT CPT-06736 Administration single or combination vaccine inc oral 20 :51:03 CDT CPT-39616 Influenza split virus > age 3 20:51:03 CDT CPT-58625 No Charge Offi Visit 14:52:03 CDT CPT-OV Office Visit 14:57:43 CDT CPT-OV Office Visit 15:22:32 CDT CPT-19277 Administration single or combination vaccine inc oral 11 :33:15 CDT CPT-04966 Influenza split virus > age 3 11:33:15 CDT
--- OUTSIDE RECORDS SUMMARY | 2018-04-25 18:01 | XMS REPORT | Clinical Summary ---
Author Author Admin, SACHI Organization [employer] Address Unknown Phone Unavailable Allergies, Adverse Reactions, Alerts Allergy Name Reaction Description Start Date Severity Status Provider DANIELLE migraine h/a Critical Active Luisa COOPEREIN migraine h/a Moderate No Longer Active Tu Landeros MD TRICOR rash, trouble breathing Critical Active Tu Landeros MD SULINDAC Critical Active Tu aLnderos MD DOXYCYCLINE Critical Active Tu Landeros MD [...] unspecified hyperlipidemia POSTMENOPAUSAL BLEEDING 627.1 Resolved Elvira Cevrantes MD PhD Postmenopausal bleeding DIABETES MELLITUS, TYPE [...] blood sugar BID Dx: E11.9 GLUCOSE BLOOD 88897079850 Active Tu Landeros MD Active TRUE METRIX AIR GLUCOSE METER W/DEVICE KIT Test blood glucose BID Dx: E11.9 BLOOD GLUCOSE MONITORING SUPPL 07412263769 Active Tu Landeros MD Active TRUETEST TEST INVITR STRP test blood sugar twice daily. DX 250.0 GLUCOSE BLOOD 34196652474 No Longer Active Mirna Stanley LPN Active TRUEDRAW LANCING DEVICE MISC test blood sugar twice daily dx: 250.00 LANCET DEVICES 02375822225 No Longer Active Mirna Stanley LPN Active ENALAPRIL MALEATE 20 MG TABS 2 po qd ENALAPRIL MALEATE 96921780820 Active Tu Landeros MD Active SUPER B COMPLEX/VITAMIN C TABS 1 qd B COMPLEX-C 58383599967 No Longer Active Tu Landeros MD Active ASPIRIN EC 81 MG ORAL TBEC 1 po qd ASPIRIN 71081816587 Active Tu Landeros MD Active GLUCOSAMINE 500 MG TABS 2 po qd GLUCOSAMINE Active Tu Landeros MD Active SIMVASTATIN 40 MG TABS 0.5 po qHS SIMVASTATIN 60808410766 Active Tu Landeros MD Active FISH OIL 1000 MG CAPS 1 po qd OMEGA-3 FATTY ACIDS 85557256354 Active Tu Landeros MD Active METFORMIN HCL 1000 MG TABS 1 po BID METFORMIN HCL 67802852050 Active Tu Landeros MD Active KLOR-CON 10 10 MEQ CR-TABS 2 po qd POTASSIUM CHLORIDE 65096909316 Active Tu Landeros MD Active FUROSEMIDE 40 MG TAB 1 po qd FUROSEMIDE 31535384259 Active Tu Landeros MD Active REQUIP 2 MG ORAL TABS 1 po qHS PRN Restless legs ROPINIROLE HCL 15111138700 Active Tu Landeros MD Active VENLAFAXINE HCL 37.5 MG TABS 1 po BID VENLAFAXINE HCL 48586489756 Active Tu Landeros MD Active GABAPENTIN 100 MG CAPS 1 po BID GABAPENTIN 04803207864 Active Tu Landeros MD Active REQUIP 2 MG TABS Take one tablet at bedtime prn ROPINIROLE HCL 13045331219 No Longer Active Tu Landeros MD Active VENTOLIN HFA 108 (90 BASE) MCG/ACT AERS 1-2 puffs every 4 hours if needed for cough/congestion ALBUTEROL SULFATE 81927541343 No Longer Active Ambika Aden APRN Active ZITHROMAX 250 MG TAB 2 po today, then 1 po q days 2-5 AZITHROMYCIN 01630198390 No Longer Active Miranda Suresh APRN Active FLONASE 50 MCG/ACT SUSP 1 spray each nostril twice daily until bottle empty FLUTICASONE PROPIONATE 19889464749 No Longer Active Tu Landeros MD Active COLACE 100 MG CAP 1 po BID PRN Constipation DOCUSATE SODIUM 38922538607 Active Tu Landeros MD Active TRUERESULT BLOOD GLUCOSE W/DEVICE KIT test blood sugar twice daily dx 250.00 BLOOD GLUCOSE MONITORING SUPPL 37279008354 No Longer Active Tu Landeros MD Active TRUEDRAW LANCING DEVICE MISC Test twice a day dx 250.0 LANCET DEVICES 23808840405 No Longer Active Tu Landeros MD Active PREDNISONE 20 MG TAB 2 tablets once daily for 2 days, then 1 tablet once daily for 2 days PREDNISONE 46763534358 No Longer Active Tu Landeros MD Active DICLOFENAC SODIUM 50 MG TBEC 1 tablet by mouth three times a day as needed DICLOFENAC SODIUM 77380897901 No Longer Active Fab Morales DO Active EMBRACE BLOOD GLUCOSE TEST STRP test blood sugar twice daily DX 250.0 2014 GLUCOSE BLOOD 68412417081 No Longer Active Tu Landeros MD Active TRUETEST TEST STRP test blood sugar three times daily dx: 250.00 GLUCOSE BLOOD 92404557580 No Longer Active Suzebianca VOGEL Active TRUERESULT BLOOD GLUCOSE W/DEVICE KIT use to test blood sugar tid dx: 250.00 BLOOD GLUCOSE MONITORING SUPPL 33814871485 No Longer Active Suze VOGEL Active ALIGN 4 MG CAPS 1 tid PROBIOTIC PRODUCT 28086837344 No Longer Active Shaun Sy MD Active CIPRO 500 MG TABS 1 bid x 14 days start 09-28-13 CIPROFLOXACIN HCL 68657331906 No Longer Active Shaun Sy MD Active TRAMADOL HCL 50 MG TABS 1-2 tablets every 6 hours as needed for pain TRAMADOL HCL 84052095418 Active Tu Landeros MD Active HYDROCODONE-ACETAMINOPHEN 5-325 MG TABS 1 tab by mouth every 6 hours as needed for pain HYDROCODONE-ACETAMINOPHEN 78886416571 No Longer Active Tu Landeros MD Active OMEPRAZOLE 20 MG CPDR 1 po q a.m. OMEPRAZOLE 11826736657 Active Tu Landeros MD Active GABAPENTIN 100 MG CAPS 1 po bid GABAPENTIN 40660641680 No Longer Active Tu Landeros MD Active B-12 100 MCG TABS Take one by mouth daily CYANOCOBALAMIN 66100348373 No Longer Active Tu Landeros MD Active BACTRIM DS 800-160 MG TABS 1 bid x 14 day start 09-28-13 SULFAMETHOXAZOLE-TRIMETHOPRIM 57302648937 No Longer Active Tu Landeros MD Active CARVEDILOL 12.5 MG TABS 1 po BID CARVEDILOL 80282384183 Active Tu Landeros MD Active TRILIPIX 135 MG CPDR 1 q hs CHOLINE FENOFIBRATE 57971786090 Active Tu Landeros MD Active FENOFIBRATE 145 MG TABS 1 po qd FENOFIBRATE 28914877373 No Longer Active JASPREET Perez Active OMEPRAZOLE 20 MG TBEC 1 PO 30 MIN BEFORE 1ST MEAL OMEPRAZOLE 17273914648 No Longer Active JASPREET Perez Active SIMVASTATIN 40 MG TABS Take one by mouth daily SIMVASTATIN 43590448600 No Longer Active JASPREET Perez Active VENLAFAXINE HCL 75 MG TABS 1 po BID VENLAFAXINE HCL 86730037865 No Longer Active JASPREET Perez Active CIPRO 500 MG TAB 1 tablet by mouth twice daily CIPROFLOXACIN HCL 26635531772 No Longer Active Tu Landeros MD Active VENLAFAXINE HCL 37.5 MG TABS 1 po BID VENLAFAXINE HCL 22888335630 No Longer Active Suzecandido NUNOA Active LAMISIL 250 MG TAB 1 po qd TERBINAFINE HCL 16370104084 No Longer Active Tu Landeros MD Active LORTAB 5 5-500 MG TABS 1/2 to 1 tablet by mouth every 4 hours as needed for pain HYDROCODONE-ACETAMINOPHEN 05107598752 No Longer Active Tu Landeros MD Active HYDROCODONE-ACETAMINOPHEN 5-500 MG TABS take one po Q 4-6 hours prn HYDROCODONE-ACETAMINOPHEN 50980565761 No Longer Active Tu Landeros MD Active BACTRIM DS 800-160 MG TABS 1 po BID x 7 days SULFAMETHOXAZOLE-TRIMETHOPRIM 66963942427 No Longer Active Tu Landeros MD Active VENLAFAXINE HCL 75 MG TABS 1 po BID VENLAFAXINE HCL 80356032972 No Longer Active Elvira Cervantes MD PhD Active TRAMADOL HCL 50 MG TABS 1 tablets every 6 hours as needed for pain TRAMADOL HCL 49666153520 No Longer Active Tu Landeros MD Active ACCU-CHEK FASTCLIX LANCETS MISC Use to check bloodsugar three times daily as needed LANCETS 86492374829 No Longer Active Tu Landeros MD Active ACCU-CHEK KEYONA PLUS STRP Use for testing bloodsugars three times daily as needed GLUCOSE BLOOD 68930542750 No Longer Active Tu Landeros MD Active ACCU-CHEK KEYONA PLUS W/DEVICE KIT Use for testing bloodsugars three times daily as needed BLOOD GLUCOSE MONITORING SUPPL 99527093640 No Longer Active Tu Landeros MD Active SPIRONOLACTONE 25 MG TAB 0.5 tablet by mouth daily SPIRONOLACTONE 96966524277 No Longer Active Tu Landeros MD Active ALPRAZOLAM 0.5 MG TABS 1 tab every 6hrs as needed ALPRAZOLAM 63851924930 No Longer Active Tu Landeros MD Active AUGMENTIN 875-125 MG TAB 1 tab by mouth twice daily with food AMOXICILLIN-POT CLAVULANATE 00391557436 No Longer Active Tu Landeros MD Active PREDNISONE 20 MG TAB 2 tabs daily for 3 days, 1 tab daily for 3 days, 1/2 tab daily for 2 days PREDNISONE 68124194698 No Longer Active Tu Landeros MD Active XANAX 0.5 MG TABS 1 tablet every 6 hrs prn ALPRAZOLAM 07644272820 No Longer Active Tu Landeros MD Active PREDNISONE 20 MG TAB 2 tabs daily for 3 days, 1 tab daily for 3 days, 1/2 tab daily for 2 days PREDNISONE 57865289307 No Longer Active Tu Landeros MD Active TRIAMCINOLONE ACETONIDE 0.1 % OINT Apply to affected areas TID for up to 2 weeks TRIAMCINOLONE ACETONIDE 27152406646 No Longer Active Tu Landeros MD Active LORTAB 5 5-500 MG TABS 1/2 to 1 tablet by mouth every 4 hours as needed for pain HYDROCODONE-ACETAMINOPHEN 13455356666 No Longer Active uT Landeros MD Active MULTIVITAMINS TABS Take one by mouth daily MULTIPLE VITAMIN 11663678857 No Longer Active Tu Landeros MD Active MELATONIN 5 MG TABS Take one by mouth daily MELATONIN 11870541971 No Longer Active Tu Landeros MD Active SOMA 350 MG TAB 1 po q 6 hours prn spasm CARISOPRODOL 67136738229 No Longer Active Tu Landeros MD Active MECLIZINE HCL 25 MG CHEW TAB 1 four times a day as needed for dizziness 08/05 MECLIZINE HCL 53948343772 No Longer Active Fab Morales DO Active ANGEL BREEZE 2 TEST DISK test tid prn GLUCOSE BLOOD 03930725797 No Longer Active Negra Scott RN Active REGLAN 10 MG TAB 1 po TID PRN [place] METOCLOPRAMIDE HCL 19103401097 No Longer Active Tu Landeros MD Active METFORMIN HCL 500 MG TABS 1 PO BID METFORMIN HCL 16686651272 No Longer Active Tu Landeros MD Active AMBIEN 10 MG TAB 1 tab by mouth at bedtime as needed for sleep ZOLPIDEM TARTRATE 26960397543 No Longer Active Tu Landeros MD Active FLUOXETINE HCL 40 MG CAPS 1 po q day FLUOXETINE HCL 62874120641 No Longer Active Mayra Terry Active TRILIPIX 135 MG CPDR 1 po qd CHOLINE FENOFIBRATE 22036251202 No Longer Active Tu Landeros MD Active AMBIEN 10 MG TAB 1 tab by mouth at bedtime as needed for sleep AMBIEN 10 MG TAB 984730 ZOLPIDEM TARTRATE Inactive METFORMIN HCL 500 MG TABS 1 PO BID METFORMIN HCL 500 MG TABS 310759 METFORMIN HCL Inactive REGLAN 10 MG TAB 1 po TID PRN Nausea REGLAN 10 MG TAB 176395 METOCLOPRAMIDE HCL Inactive MECLIZINE HCL 25 MG CHEW TAB 1 four times a day as needed for dizziness 08/05 MECLIZINE HCL 25 MG CHEW TAB 637633 MECLIZINE HCL Inactive SOMA 350 MG TAB 1 po q 6 hours prn spasm SOMA 350 MG TAB 798135 CARISOPRODOL Inactive MELATONIN 5 MG TABS Take one by mouth daily MELATONIN 5 MG TABS 286887 MELATONIN Inactive MULTIVITAMINS TABS Take one by mouth daily MULTIVITAMINS TABS MULTIPLE VITAMIN Inactive LORTAB 5 5-500 MG TABS 1/2 to 1 tablet by mouth every 4 hours as needed for pain LORTAB 5 5-500 MG TABS HYDROCODONE- ACETAMINOPHEN Inactive XANAX 0.5 MG TABS 1 tablet every 6 hrs prn XANAX 0.5 MG TABS 435099 ALPRAZOLAM Inactive AUGMENTIN 875-125 MG TAB 1 tab by mouth twice daily with food AUGMENTIN 875-125 MG TAB 469959 AMOXICILLIN-POT CLAVULANATE Inactive ALPRAZOLAM 0.5 MG TABS 1 tab every 6hrs as needed ALPRAZOLAM 0.5 MG TABS 233360 ALPRAZOLAM Inactive SPIRONOLACTONE 25 MG TAB 0.5 tablet by mouth daily SPIRONOLACTONE 25 MG TAB 123976 SPIRONOLACTONE Inactive ACCU-CHEK KEYONA PLUS W/DEVICE KIT Use for testing bloodsugars three times daily as needed ACCU-CHEK KEYONA PLUS W/DEVICE KIT BLOOD GLUCOSE MONITORING SUPPL Inactive ACCU-CHEK KEYONA PLUS STRP Use for testing bloodsugars three times daily as needed ACCU-CHEK KEYONA PLUS STRP GLUCOSE BLOOD Inactive ACCU-CHEK FASTCLIX LANCETS MISC Use to check bloodsugar three times daily as needed ACCU-CHEK FASTCLIX LANCETS MISC 39400720365 LANCETS Inactive TRAMADOL HCL 50 MG TABS 1 tablets every 6 hours as needed for pain TRAMADOL HCL 50 MG TABS 601638 TRAMADOL HCL Inactive VENLAFAXINE HCL 75 MG TABS 1 po BID VENLAFAXINE HCL 75 MG TABS 758926 VENLAFAXINE HCL Inactive HYDROCODONE-ACETAMINOPHEN 5-500 MG TABS take one po Q 4-6 hours prn HYDROCODONE-ACETAMINOPHEN 5-500 MG TABS HYDROCODONE- ACETAMINOPHEN Inactive LORTAB 5 5-500 MG TABS 1/2 to 1 tablet by mouth every 4 hours as needed for pain LORTAB 5 5-500 MG TABS HYDROCODONE- ACETAMINOPHEN Inactive LAMISIL 250 MG TAB 1 po qd LAMISIL 250 MG TAB 290042 TERBINAFINE HCL Inactive VENLAFAXINE HCL 37.5 MG TABS 1 po BID VENLAFAXINE HCL 37.5 MG TABS 943069 VENLAFAXINE HCL Inactive CIPRO 500 MG TAB 1 tablet by mouth twice daily CIPRO 500 MG TAB 579143 CIPROFLOXACIN HCL Inactive VENLAFAXINE HCL 75 MG TABS 1 po BID VENLAFAXINE HCL 75 MG TABS 536348 VENLAFAXINE HCL Inactive SIMVASTATIN 40 MG TABS Take one by mouth daily SIMVASTATIN 40 MG TABS 190832 SIMVASTATIN Inactive OMEPRAZOLE 20 MG TBEC 1 PO 30 MIN BEFORE 1ST MEAL OMEPRAZOLE 20 MG TBEC 657756 OMEPRAZOLE Inactive FENOFIBRATE 145 MG TABS 1 po qd FENOFIBRATE 145 MG TABS 643779 FENOFIBRATE Inactive BACTRIM DS 800-160 MG TABS 1 bid x 14 day start 09-28-13 BACTRIM DS 800-160 MG TABS 816248 SULFAMETHOXAZOLE-TRIMETHOPRIM Inactive B-12 100 MCG TABS Take one by mouth daily B-12 100 MCG TABS CYANOCOBALAMIN Inactive GABAPENTIN 100 MG CAPS 1 po bid GABAPENTIN 100 MG CAPS 055752 GABAPENTIN Inactive HYDROCODONE-ACETAMINOPHEN 5-325 MG TABS 1 tab by mouth every 6 hours as needed for pain HYDROCODONE-ACETAMINOPHEN 5-325 MG TABS 389068 HYDROCODONE-ACETAMINOPHEN Inactive CIPRO 500 MG TABS 1 bid x 14 days start 09-28-13 CIPRO 500 MG TABS 817388 CIPROFLOXACIN HCL Inactive ALIGN 4 MG CAPS [...] DICLOFENAC SODIUM 50 MG [facility] 755818 DICLOFENAC SODIUM Inactive PREDNISONE 20 MG TAB 2 tablets once daily for 2 days, then 1 tablet once daily for 2 days PREDNISONE 20 MG TAB 767916 PREDNISONE Inactive TRUEDRAW LANCING DEVICE MISC Test [...] at bedtime prn REQUIP 2 MG TABS 858134 ROPINIROLE HCL Inactive SUPER B COMPLEX/VITAMIN C TABS 1 qd SUPER B COMPLEX/ VITAMIN C TABS 53411601805 B COMPLEX-C Inactive TRUEDRAW LANCING DEVICE MISC test blood sugar twice daily dx: 250.00 TRUEDRAW LANCING DEVICE MISC LANCET DEVICES Inactive TRUETEST TEST INVITR STRP test blood sugar twice daily. DX 250.0 TRUETEST TEST INVITR STRP GLUCOSE BLOOD Inactive TRIAMCINOLONE ACETONIDE 0.1 % OINT Apply to affected areas TID for up to 2 weeks TRIAMCINOLONE ACETONIDE 0.1 % OINT 5504382 TRIAMCINOLONE ACETONIDE Inactive PREDNISONE 20 MG TAB 2 tabs daily for 3 days, 1 tab daily for 3 days, 1/2 tab daily for 2 days PREDNISONE 20 MG TAB 962398 PREDNISONE Inactive PREDNISONE 20 MG TAB 2 tabs daily for 3 days, 1 tab daily for 3 days, 1/2 tab daily for 2 days PREDNISONE 20 MG TAB 148863 PREDNISONE Inactive BACTRIM DS 800-160 MG TABS 1 po BID x 7 days BACTRIM DS 800-160 MG TABS 628401 SULFAMETHOXAZOLE-TRIMETHOPRIM Inactive ZITHROMAX 250 MG TAB 2 po today, then 1 po q days 2-5 ZITHROMAX 250 MG TAB 7163825 AZITHROMYCIN Inactive Advance Directives Directive Description Start Date DISCUSSED WITH PATIENT -- NO DECISION MADE Immunizations Vaccine Administration Date Value Standard Description Seasonal influenza vaccine, injectable, containing preservative, for > 3 years old (Afluria, FluLaval, Fluzone, Fluvirin, Fluarix, Agriflu(>=18 yo)) Fluzone (>3 yrs.) [[id number]] Influenza, seasonal, injectable influenza immunization (Flu Vax) has been administered 02/22/2012 influenza virus vaccine, unspecified formulation Seasonal influenza vaccine, injectable, containing preservative, for > 3 years old (Afluria, FluLaval, Fluzone, Fluvirin, Fluarix, Agriflu(>=18 yo)) Fluzone (>3 yrs.) [[id number]] Influenza, seasonal, injectable Vital Signs Date Name [...] Magnesium - Chemistry sodium, serum 143 mmol/L 645-526 9092/01/10 carbon dioxide, venous blood 28.0 mmol/L 21.0-32.0 potassium, serum 4.5 mmol/L 3.5-5.2 chloride, serum 104 mmol/L 98-107 blood glucose 158 mg/dL 65-110 urea nitrogen, blood 23 mg/dL 7-18 creatinine, serum 1.06 mg/dL 0.55-1.30 alanine aminotransferase (SGPT), serum 42 U/L 12-78 aspartate aminotransferase (SGOT), serum 32 U/L 15-37 calcium, serum 9.3 mg/dL 8.5-10.1 bilirubin, serum, total 0.20 mg/dL 0.00-1.00 cholesterol, serum 177 mg/dL 982-756 8177/01/10 triglyceride, serum, fasting 320 mg/dL 30-200 HDL cholesterol, serum 46 mg/dL 32-96 LDL cholesterol, serum 67 mg/dL 0-130 Lab Report: HGBA1C - Chemistry hemoglobin A1C, blood, as % of total hemoglobin 7.1 % 4.3-6.0 hemoglobin A1C, blood, as % of total hemoglobin 7.4 % 4.3-6.0 sodium, serum 140 mmol/L 874-629 2898/09/07 potassium, serum 4.3 mmol/L 3.5-5.2 chloride, serum [...] <30 Encounters Code Encounter Date Provider Facility CPT-43554 Level 4 Est. Patient 09:08:17 [employer] Tu Landeros MD [facility] CPT-91578 Level 4 Est. Patient 14:40:19 CDT Tu Landeros MD [facility] CPT-73513 Level 4 Est. Patient 14:06:04 [employer] Tu Landeros MD [facility] CPT-30667 Level 3 Est. Patient 14:05:18 [employer] Tu Landeros MD [facility] CPT-15103 Level 3 Est. 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 Patient 13:50:18 [employer] Tu Landeros MD [facility] CPT-53937 Level 3 Est. Patient 10:30:04 CDT Tu Landeros MD [facility] CPT-15074 Level 4 Est. Patient 11:03:38 CDT Tu Landeros MD [facility] CPT-15534 Level 3 Est. Patient 10:20:44 CDT Fab Morales DO [facility] CPT-78511 Level 4 Est. Patient 14:38:57 CDT Tu Landeros MD [facility] CPT-16624 Level 4 Est. Patient 14:27:39 [employer] Tu Landeros MD [facility] CPT-43546 Level 4 Est. Patient 09:45:25 CDT Tu Landeros MD [facility] CPT-61475 Level 4 Est. Patient 09:05:20 [employer] Tu Landeros MD [facility] CPT-36539 Level 4 Est. Patient 14:09:06 CDT Tu Landeros MD [facility] CPT-31417 Level 3 Est. Patient 13:36:54 CDT Tu Landeros MD [facility] CPT-99498 Level 3 Est. Patient 08:59:14 CDT Tu Landeros MD [facility] CPT-90639 Level 3 Est. Patient 13:48:35 CDT Fab Morales DO [facility] CPT-88165 Level 4 Est. Patient 10:05:48 CDT Tu Landeros MD [facility] CPT-77363 Level 3 Est. Patient 13:38:42 CDT Marek BANKS [facility] CPT-85959 Level 5 Est. Patient 08:08:39 CDT Jerrica FRANCIS [facility] CPT-49630 Level 4 Est. Patient 14:23:38 CDT Tu Landeros MD [facility] CPT-16689 Level 3 Est. Patient 11:44:04 CDT Tu Landeros MD [facility] CPT-71835 Level 3 Est. Patient 11:03:20 [employer] Tu Landeros MD [facility] CPT-65823 Level 3 Est. Patient 11:03:14 [employer] Tu Landeros MD [facility] CPT-86034 Level 3 Est. Patient 12:42:49 CDT Tu Landeros MD [facility] CPT-21116 Level 3 Est. Patient 11:52:06 CDT Tu Landeros MD [facility] CPT-89723 Level 3 Est. Patient 13:58:11 CDT Tu Landeros MD [facility] CPT-36132 Level 3 Est. Patient 17:50:07 CDT Fab Morales DO [facility] CPT-21941 Level 3 Est. Patient 12:06:29 CDT Elvira Cervantes MD [facility] CPT-72234 Level 3 Est. Patient 15:50:32 CDT Tu Landeros MD [facility] CPT-26704 Level 4 Est. Patient 16:08:29 CDT Tu Landeros MD [facility] CPT-93991 Level 3 Est. Patient 16:04:19 CDT Tu Landeros MD [facility] CPT-88436 Level 3 Est. Patient 11:22:30 [employer] Tu Landeros MD [facility] CPT-51059 Level 4 Est. Patient 16:24:02 [employer] Tu Landeros MD [facility] CPT-35529 Level 3 Est. Patient 17:21:23 [employer] Tu Landeros MD [facility] Procedures Code Procedure Name Date Entry Date Standard Description CPT-64281 Magnesium - LAB USE ONLY 11:14:20 [employer] CPT-92195 Lipid - LAB USE ONLY 11:14:20 [employer] CPT-22903 HGBA1C - LAB USE ONLY 11:14:20 [employer] CPT-93536 CMP - LAB USE ONLY 11:14:19 [employer] CPT-39354 CBC - LAB USE ONLY 11:14:19 [employer] CPT-31403 Venipuncture Draw Fee 11:14:18 [employer] CPT-13718 First Vx - Ix admin for Medicare patients 16:46:52 CDT CPT-86682 Fluzone Preservative Free Intramuscular Suspension 16:46 :51 CDT CPT-93773 CBC - LAB USE ONLY 17:14:46 CDT CPT-49455 HGBA1C - LAB USE ONLY 17:14:46 CDT CPT-21625 Venipuncture Draw Fee 17:14:46 CDT CPT-G0438 Initial Annual Wellness Exam 14:13:04 CDT CPT-82633 Breathing Tx 10:06:54 [employer] CPT-15009 Postop F/U Visit 10:02:45 CDT CPT-LR Lesion Removal 09:02:56 CDT CPT-JTINJ Asp/Joint Injection 15:51:27 [employer] CPT-OV Office Visit 15:52:02 [employer] CPT-OV Office Visit 15:45:11 CDT CPT-000 Give Zostavax 14:09:06 CDT CPT-15491 Administration single or combination vaccine inc oral 15 :19:04 CDT CPT-62428 Zoster Vaccine (Zostavax) 15:19:04 CDT CPT-50648 Administration single or combination vaccine inc oral 20 :51:03 CDT CPT-22939 Influenza split virus > age 3 20:51:03 CDT CPT-75122 No Charge Offi Visit 14:52:03 CDT CPT-OV Office Visit 14:57:43 CDT CPT-OV Office Visit 15:22:32 CDT CPT-05601 Administration single or combination vaccine inc oral 11 :33:15 CDT CPT-68367 Influenza split virus > age 3 11:33:15 CDT
--- OUTSIDE RECORDS SUMMARY | 2018-04-25 18:03 | XMS REPORT | Clinical Summary ---
Author Author Admin, SACHI Organization [employer] Address Unknown Phone Unavailable Allergies, Adverse Reactions, Alerts Allergy Name Reaction Description Start Date Severity Status Provider DANIELLE migraine h/a Critical Active Luisa COOPEREIN migraine h/a Moderate No Longer Active Tu Landreos MD TRICOR rash, trouble breathing Critical Active [...] MASS OR LUMP 782.2 Resolved 03/15 Tu Landerso MD Localized superficial swelling, mass, or lump [...] MG TABS 1 po BID VENLAFAXINE HCL 55803021241 Active Tu Landeros MD Active GABAPENTIN 100 MG CAPS 1 po BID GABAPENTIN 05549493141 Active José Luis Becerra MD Active REQUIP 2 MG TABS Take one tablet at bedtime prn ROPINIROLE HCL 81173206643 No Longer Active Tu Landeros MD Active VENTOLIN HFA 108 (90 BASE) MCG/ACT AERS 1-2 puffs every 4 hours if needed for cough/congestion ALBUTEROL SULFATE 87710545121 No Longer Active Ambika Aden APRN Active ZITHROMAX 250 MG TAB 2 po today, then 1 po q days 2-5 AZITHROMYCIN 55097943287 No Longer Active Miranda Suresh APRN Active METFORMIN HCL 1000 MG TABS 1 tablet by mouth twice daily METFORMIN HCL 92171141032 Active Tu Landeros MD Active FLONASE 50 MCG/ACT SUSP 1 spray each nostril twice daily until bottle empty FLUTICASONE PROPIONATE 54807416560 No Longer Active Tu Landeros MD Active COLACE 100 MG CAP 1 po BID PRN Constipation DOCUSATE SODIUM 72656476663 Active Tu Landeros MD Active SIMVASTATIN 40 MG TABS 0.5 tab daily at bedtime SIMVASTATIN 36039525514 Active Tu Landeros MD Active TRUERESULT BLOOD GLUCOSE W/DEVICE KIT test blood sugar twice daily dx 250.00 BLOOD GLUCOSE MONITORING SUPPL 43890288534 No Longer Active Tu Landeros MD Active TRUEDRAW LANCING DEVICE MISC Test twice a day dx 250.0 LANCET DEVICES 35059169340 No Longer Active Tu Landeros MD Active PREDNISONE 20 MG TAB 2 tablets once daily for 2 days, then 1 tablet once daily for 2 days PREDNISONE 59635752397 No Longer Active Tu Landeros MD Active DICLOFENAC SODIUM 50 MG TBEC 1 tablet by mouth three times a day as needed DICLOFENAC SODIUM 95419631795 No Longer Active Fab Morales DO Active TRUEDRAW LANCING DEVICE MISC test blood sugar twice daily dx: 250.00 LANCET DEVICES 11746649741 Active Tu Landeros MD Active TRUETEST TEST INVITR STRP test blood sugar twice daily. DX 250.0 GLUCOSE BLOOD 04073678668 Active Tu Landeros MD Active EMBRACE BLOOD GLUCOSE TEST STRP test blood sugar twice daily DX 250.0 2014 GLUCOSE BLOOD 49084242196 No Longer Active Tu Landeros MD Active TRUETEST TEST STRP test blood sugar three times daily dx: 250.00 GLUCOSE BLOOD 10955488996 No Longer Active Suze Corey VOGEL Active TRUERESULT BLOOD GLUCOSE W/DEVICE KIT use to test blood sugar tid dx: 250.00 BLOOD GLUCOSE MONITORING SUPPL 53359371423 No Longer Active Suze Corey RMA Active ALIGN 4 MG CAPS 1 tid PROBIOTIC PRODUCT 07163442129 No Longer Active Shaun Sy MD Active CIPRO 500 MG TABS 1 bid x 14 days start 09-28-13 CIPROFLOXACIN HCL 05606413132 No Longer Active Shaun Sy MD Active TRAMADOL HCL 50 MG TABS 1-2 tablets every 6 hours as needed for pain TRAMADOL HCL 38017234099 Active Tu Landeros MD Active HYDROCODONE-ACETAMINOPHEN 5-325 MG TABS 1 tab by mouth every 6 hours as needed for pain HYDROCODONE-ACETAMINOPHEN 48015629373 No Longer Active Tu Landeros MD Active OMEPRAZOLE 20 MG CPDR 1 po q a.m. OMEPRAZOLE 85601531118 Active Tu Landeros MD Active GABAPENTIN 100 MG CAPS 1 po bid GABAPENTIN 24637819884 No Longer Active Tu Landeros MD Active B-12 100 MCG TABS Take one by mouth daily CYANOCOBALAMIN 10600389967 No Longer Active Tu Landeros MD Active BACTRIM DS 800-160 MG TABS 1 bid x 14 day start 09-28-13 SULFAMETHOXAZOLE-TRIMETHOPRIM 71176480387 No Longer Active Tu Landeros MD Active CARVEDILOL 12.5 MG TABS 1 po BID CARVEDILOL 02006900171 Active Tu Landeros MD Active SUPER B COMPLEX/VITAMIN C TABS 1 qd B COMPLEX-C 64600684019 Active JASPREET Perez Active TRILIPIX 135 MG CPDR 1 q hs CHOLINE FENOFIBRATE 69382647729 Active Tu Landeros MD Active FENOFIBRATE 145 MG TABS 1 po qd FENOFIBRATE 07946350088 No Longer Active JASPREET Perez Active OMEPRAZOLE 20 MG TBEC 1 PO 30 MIN BEFORE 1ST MEAL OMEPRAZOLE 91938599196 No Longer Active JASPREET Perez Active SIMVASTATIN 40 MG TABS Take one by mouth daily SIMVASTATIN 01707826260 No Longer Active JASPREET Perez Active VENLAFAXINE HCL 75 MG TABS 1 po BID VENLAFAXINE HCL 52955652338 No Longer Active JASPREET Perez Active CIPRO 500 MG TAB 1 tablet by mouth twice daily CIPROFLOXACIN HCL 63789334534 No Longer Active Tu Landeros MD Active VENLAFAXINE HCL 37.5 MG TABS 1 po BID VENLAFAXINE HCL 82421189857 No Longer Active Suze Nicole RMA Active LAMISIL 250 MG TAB 1 po qd TERBINAFINE HCL 95524584706 No Longer Active Tu Landeros MD Active LORTAB 5 5-500 MG TABS 1/2 to 1 tablet by mouth every 4 hours as needed for pain HYDROCODONE-ACETAMINOPHEN 55690049199 No Longer Active Tu Landeros MD Active ENALAPRIL MALEATE 20 MG TABS 1.5 po qd ENALAPRIL MALEATE 28936767790 Active Tu Landeros MD Active HYDROCODONE-ACETAMINOPHEN 5-500 MG TABS take one po Q 4-6 hours prn HYDROCODONE-ACETAMINOPHEN 55876051581 No Longer Active Tu Landeros MD Active BACTRIM DS 800-160 MG TABS 1 po BID x 7 days SULFAMETHOXAZOLE-TRIMETHOPRIM 54009494873 No Longer Active Tu Landeros MD Active VENLAFAXINE HCL 75 MG TABS 1 po BID VENLAFAXINE HCL 08033386898 No Longer Active Elvira Cervantes MD PhD Active TRAMADOL HCL 50 MG TABS 1 tablets every 6 hours as needed for pain TRAMADOL HCL 34787917934 No Longer Active Tu Landeros MD Active ACCU-CHEK FASTCLIX LANCETS MISC Use to check bloodsugar three times daily as needed LANCETS 66810783674 No Longer Active Tu Landeros MD Active ACCU-CHEK KEYONA PLUS STRP Use for testing bloodsugars three times daily as needed GLUCOSE BLOOD 60884483095 No Longer Active Tu Landeros MD Active ACCU-CHEK KEYONA PLUS W/DEVICE KIT Use for testing bloodsugars three times daily as needed BLOOD GLUCOSE MONITORING SUPPL 43060202600 No Longer Active Tu Landeros MD Active SPIRONOLACTONE 25 MG TAB 0.5 tablet by mouth daily SPIRONOLACTONE 78705485692 No Longer Active Tu Landeros MD Active ALPRAZOLAM 0.5 MG TABS 1 tab every 6hrs as needed ALPRAZOLAM 24770640500 No Longer Active Tu Landeros MD Active AUGMENTIN 875-125 MG TAB 1 tab by mouth twice daily with food AMOXICILLIN-POT CLAVULANATE 81733132666 No Longer Active Tu Landeros MD Active PREDNISONE 20 MG TAB 2 tabs daily for 3 days, 1 tab daily for 3 days, 1/2 tab daily for 2 days PREDNISONE 28673842942 No Longer Active Tu Landeros MD Active XANAX 0.5 MG TABS 1 tablet every 6 hrs prn ALPRAZOLAM 32479816737 No Longer Active Tu Landeros MD Active PREDNISONE 20 MG TAB 2 tabs daily for 3 days, 1 tab daily for 3 days, 1/2 tab daily for 2 days PREDNISONE 97732493411 No Longer Active Tu Landeros MD Active TRIAMCINOLONE ACETONIDE 0.1 % OINT Apply to affected areas TID for up to 2 weeks TRIAMCINOLONE ACETONIDE 05182222598 No Longer Active Tu Landeros MD Active LORTAB 5 5-500 MG TABS 1/2 to 1 tablet by mouth every 4 hours as needed for pain HYDROCODONE-ACETAMINOPHEN 17246035597 No Longer Active Tu Landeros MD Active MULTIVITAMINS TABS Take one by mouth daily MULTIPLE VITAMIN 84128895121 No Longer Active Tu Landeros MD Active MELATONIN 5 MG TABS Take one by mouth daily MELATONIN 30329213710 No Longer Active Tu Landeros MD Active SOMA 350 MG TAB 1 po q 6 hours prn spasm CARISOPRODOL 11927375460 No Longer Active Tu Landeros MD Active MECLIZINE HCL 25 MG CHEW TAB 1 four times a day as needed for dizziness 08/05 MECLIZINE HCL 21303927213 No Longer Active Fab Morales DO Active ANGEL BREEZE 2 TEST DISK test tid prn GLUCOSE BLOOD 38487597112 No Longer Active Negra Scott RN Active REGLAN 10 MG TAB 1 po TID PRN Nausea METOCLOPRAMIDE HCL 95757565523 No Longer Active Tu Landeros MD Active METFORMIN HCL 500 MG TABS 1 PO BID METFORMIN HCL 72385721687 No Longer Active Tu Landeros MD Active AMBIEN 10 MG TAB 1 tab by mouth at bedtime as needed for sleep ZOLPIDEM TARTRATE 40176134258 No Longer Active Tu Landeros MD Active FLUOXETINE HCL 40 MG CAPS 1 po q day FLUOXETINE HCL 00018563335 No Longer Active Mayra Fieldsarger Active FISH OIL 1000 MG CAPS Take one by mouth daily OMEGA-3 FATTY ACIDS 35449198453 Active Tu Landeros MD Active GLUCOSAMINE 500 MG TABS Take 2 tab po qd GLUCOSAMINE 26354275963 Active Tu Landeros MD Active TRILIPIX 135 MG CPDR 1 po qd CHOLINE FENOFIBRATE 44149373958 No Longer Active Tu Landeros MD Active ASPIRIN 81 MG CHEW TAB 1 tablet by mouth daily ASPIRIN 52766239752 Active Tu Landeros MD Active FUROSEMIDE 40 MG TAB 1 tablet by mouth daily FUROSEMIDE 03282414058 Active Tu Landeros MD Active KLOR-CON 10 10 MEQ CR-TABS TAKE 2 TABS DAILY POTASSIUM CHLORIDE 48527754994 Active Tu Landeros MD Active AMBIEN 10 MG TAB 1 tab by mouth at bedtime as needed for sleep AMBIEN 10 MG TAB 820447 ZOLPIDEM TARTRATE Inactive METFORMIN HCL 500 MG TABS 1 PO BID METFORMIN HCL 500 MG TABS 496220 METFORMIN HCL Inactive REGLAN 10 MG TAB 1 po TID PRN Nausea REGLAN 10 MG TAB 796406 METOCLOPRAMIDE HCL Inactive MECLIZINE HCL 25 MG CHEW TAB 1 four times a day as needed for dizziness 08/05 MECLIZINE HCL 25 MG CHEW TAB 273637 MECLIZINE HCL Inactive SOMA 350 MG TAB 1 po q 6 hours prn spasm SOMA 350 MG TAB 384703 CARISOPRODOL Inactive MELATONIN 5 MG TABS Take one by mouth daily MELATONIN 5 MG TABS 796086 MELATONIN Inactive MULTIVITAMINS TABS Take one by mouth daily MULTIVITAMINS TABS MULTIPLE VITAMIN Inactive LORTAB 5 5-500 MG TABS 1/2 to 1 tablet by mouth every 4 hours as needed for pain LORTAB 5 5-500 MG TABS HYDROCODONE- ACETAMINOPHEN Inactive XANAX 0.5 MG TABS 1 tablet every 6 hrs prn XANAX 0.5 MG TABS 569963 ALPRAZOLAM Inactive AUGMENTIN 875-125 MG TAB 1 tab by mouth twice daily with food AUGMENTIN 875-125 MG TAB 305053 AMOXICILLIN-POT CLAVULANATE Inactive ALPRAZOLAM 0.5 MG TABS 1 tab every 6hrs as needed ALPRAZOLAM 0.5 MG TABS 872913 ALPRAZOLAM Inactive SPIRONOLACTONE 25 MG TAB 0.5 tablet by mouth daily SPIRONOLACTONE 25 MG TAB 071584 SPIRONOLACTONE Inactive ACCU-CHEK KEYONA PLUS W/DEVICE KIT Use for testing bloodsugars three times daily as needed ACCU-CHEK KEYONA PLUS W/DEVICE KIT BLOOD GLUCOSE MONITORING SUPPL Inactive ACCU-CHEK KEYONA PLUS STRP Use for testing bloodsugars three times daily as needed ACCU-CHEK KEYONA PLUS STRP GLUCOSE BLOOD Inactive ACCU-CHEK FASTCLIX LANCETS MISC Use to check bloodsugar three times daily as needed ACCU-CHEK FASTCLIX LANCETS MISC 46831479095 [facility] Inactive TRAMADOL HCL 50 MG TABS 1 tablets every 6 hours as needed for pain TRAMADOL HCL 50 MG TABS 011836 TRAMADOL HCL Inactive VENLAFAXINE HCL 75 MG TABS 1 po BID VENLAFAXINE HCL 75 MG TABS 029018 VENLAFAXINE HCL Inactive HYDROCODONE-ACETAMINOPHEN 5-500 MG TABS take one po Q 4-6 hours prn HYDROCODONE-ACETAMINOPHEN 5-500 MG TABS HYDROCODONE- ACETAMINOPHEN Inactive LORTAB 5 5-500 MG TABS 1/2 to 1 tablet by mouth every 4 hours as needed for pain LORTAB 5 5-500 MG TABS HYDROCODONE- ACETAMINOPHEN Inactive LAMISIL 250 MG TAB 1 po qd LAMISIL 250 MG TAB 137270 TERBINAFINE HCL Inactive VENLAFAXINE HCL 37.5 MG TABS 1 po BID VENLAFAXINE HCL 37.5 MG TABS 147786 VENLAFAXINE HCL Inactive CIPRO 500 MG TAB 1 tablet by mouth twice daily CIPRO 500 MG TAB 002758 CIPROFLOXACIN HCL Inactive VENLAFAXINE HCL 75 MG TABS 1 po BID VENLAFAXINE HCL 75 MG TABS 042891 VENLAFAXINE HCL Inactive SIMVASTATIN 40 MG TABS Take one by mouth daily SIMVASTATIN 40 MG TABS 964806 SIMVASTATIN Inactive OMEPRAZOLE 20 MG TBEC 1 PO 30 MIN BEFORE 1ST MEAL OMEPRAZOLE 20 MG TBEC 289964 OMEPRAZOLE Inactive FENOFIBRATE 145 MG TABS 1 po qd FENOFIBRATE 145 MG TABS 746271 FENOFIBRATE Inactive BACTRIM DS 800-160 MG TABS 1 bid x 14 day start 09-28-13 BACTRIM DS 800-160 MG TABS 286507 SULFAMETHOXAZOLE-TRIMETHOPRIM Inactive B-12 100 MCG TABS Take one by mouth daily B-12 100 MCG TABS CYANOCOBALAMIN Inactive GABAPENTIN 100 MG CAPS 1 po bid GABAPENTIN 100 MG CAPS 030343 GABAPENTIN Inactive HYDROCODONE-ACETAMINOPHEN 5-325 MG TABS 1 tab by mouth every 6 hours as needed for pain HYDROCODONE-ACETAMINOPHEN 5-325 MG TABS 305683 HYDROCODONE-ACETAMINOPHEN Inactive CIPRO 500 MG TABS 1 bid x 14 days start -814 CIPRO 500 MG TABS 720048 CIPROFLOXACIN HCL Inactive ALIGN 4 MG CAPS [...] as needed DICLOFENAC SODIUM 50 MG TBEC 515544 DICLOFENAC SODIUM Inactive PREDNISONE 20 MG TAB 2 tablets once daily for 2 days, then 1 tablet once daily for 2 days PREDNISONE 20 MG TAB 710344 PREDNISONE Inactive TRUEDRAW LANCING DEVICE MISC Test [...] at bedtime prn REQUIP 2 MG TABS 248562 ROPINIROLE HCL Inactive TRIAMCINOLONE ACETONIDE 0.1 % OINT Apply to affected areas TID for up to 2 weeks TRIAMCINOLONE ACETONIDE 0.1 % OINT 5407133 TRIAMCINOLONE ACETONIDE Inactive PREDNISONE 20 MG TAB 2 tabs daily for 3 days, 1 tab daily for 3 days, 1/2 tab daily for 2 days PREDNISONE 20 MG TAB 602356 PREDNISONE Inactive PREDNISONE 20 MG TAB 2 tabs daily for 3 days, 1 tab daily for 3 days, 1/2 tab daily for 2 days PREDNISONE 20 MG TAB 034428 PREDNISONE Inactive BACTRIM DS 800-160 MG TABS 1 po BID x 7 days BACTRIM DS 800-160 MG TABS 313603 SULFAMETHOXAZOLE-TRIMETHOPRIM Inactive ZITHROMAX 250 MG TAB 2 po today, then 1 po q days 2-5 ZITHROMAX 250 MG TAB 0998716 AZITHROMYCIN Inactive Advance Directives Directive Description Start Date DISCUSSED WITH PATIENT -- NO DECISION MADE Immunizations Vaccine Administration Date Value Standard Description Seasonal influenza vaccine, injectable, containing preservative, for > 3 years old (Afluria, FluLaval, Fluzone, Fluvirin, Fluarix, Agriflu(>=18 yo)) Fluzone (>3 yrs.) [JZO314] Influenza, seasonal, injectable influenza immunization (Flu Vax) has been administered 02/22/2012 influenza virus vaccine, unspecified formulation Seasonal influenza vaccine, injectable, containing preservative, for > 3 years old (Afluria, FluLaval, Fluzone, Fluvirin, Fluarix, Agriflu(>=18 yo)) Fluzone (>3 yrs.) [TCL704] Influenza, seasonal, injectable Vital Signs Date Name [...] 7.4 % 4.3-6.0 sodium, serum 140 mmol/L 370-363 4387/09/07 potassium, serum 4.3 mmol/L 3.5-5.2 chloride, serum 104 mmol/L 98-107 carbon dioxide, venous blood 27.7 mmol/L 21.0-32.0 blood glucose 156 mg/dL 65-110 calcium, serum 9.3 mg/dL 8.5-10.1 urea nitrogen, blood 23 mg/dL 7-18 creatinine, serum 1.21 mg/dL 0.55-1.30 Lab Report: Lipid Panel, Comp. Metabolic Panel - Chemistry cholesterol, serum 124 mg/dL [phone]/01/12 triglyceride, serum, fasting 135 mg/dL 30-200 HDL cholesterol, serum 41 mg/dL 32-96 LDL cholesterol, serum 56 mg/dL 0-130 sodium, serum 140 mmol/L 874-913 4183/01/12 carbon dioxide, venous blood 27.7 mmol/L 21.0-32.0 potassium, serum 4.5 mmol/L 3.5-5.2 chloride, serum 104 mmol/L 98-107 blood glucose 139 mg/dL 65-110 urea nitrogen, blood 16 mg/dL 7-18 alanine aminotransferase (SGPT), serum 32 U/L 12-78 aspartate aminotransferase (SGOT), serum 25 U/L 15-37 calcium, serum 9.1 mg/dL 8.5-10.1 bilirubin, serum, total 0.50 mg/dL 0.00-1.00 Encounters Code Encounter Date Provider Facility CPT-82147 Level 4 Est. Patient 14:40:19 CDT Tu Landeros MD [facility] CPT-14308 Level 4 Est. Patient 14:06:04 [facility] [employer] [employer] [facility] Tu Landeros MD [facility] CPT-65722 Level 3 Est. Patient 14:05:18 [facility] Tu Landeros MD [facility] CPT-05852 Level 3 Est. Patient 10:06:54 [facility] [employer] Miranda Suresh APRN [facility] CPT-67981 Level 4 Est. Patient 13:50:18 [facility] [employer] Tu Landeros MD [facility] CPT-55081 Level 3 Est. Patient 10:30:04 CDT Tu Landeros MD [facility] CPT-88509 Level 4 Est. Patient 11:03:38 CDT Tu Landeros MD [facility] CPT-17429 Level 3 Est. Patient 10:20:44 CDT Fab Morales DO [facility] CPT-26031 Level 4 Est. Patient 14:38:57 CDT Tu Landeros MD [facility] CPT-07700 Level 4 Est. Patient 14:27:39 [facility] [employer] [facility] Tu Landeros MD [facility] CPT-03839 Level 4 Est. Patient 09:45:25 CDT Tu Landeros MD [facility] CPT-22015 Level 4 Est. Patient 09:05:20 [facility] [employer] [facility]MENT Tu Landeros MD [facility] CPT-10358 Level 4 Est. Patient 14:09:06 CDT Tu Landeros MD [facility] CPT-86040 Level 3 Est. Patient 13:36:54 CDT Tu Landeros MD [facility] CPT-85388 Level 3 Est. Patient 08:59:14 CDT Tu Landeros MD [facility] CPT-20284 Level 3 Est. Patient 13:48:35 CDT Fab Morales DO [facility] CPT-81620 Level 4 Est. Patient 10:05:48 CDT Tu Landeros MD [facility] CPT-12429 Level 3 Est. Patient 13:38:42 CDT Marek BANKS [facility] CPT-74453 Level 5 Est. Patient 08:08:39 CDT Jerrica FRANCIS [facility] CPT-34455 Level 4 Est. Patient 14:23:38 CDT Tu Landeros MD [facility] CPT-57127 Level 3 Est. Patient 11:44:04 CDT Tu Landeros MD [facility] CPT-85417 Level 3 Est. Patient 11:03:20 [employer] [facility] Tu Landeros MD [facility] CPT-04545 Level 3 Est. Patient 11:03:14 [employer] [facility]MENT Tu Landeros MD [facility] CPT-37595 Level 3 Est. Patient 12:42:49 CDT Tu Landeros MD [facility] CPT-67646 Level 3 Est. Patient 11:52:06 CDT Tu Landeros MD [facility] CPT-01183 Level 3 Est. Patient 13:58:11 CDT Tu Landeros MD [facility] CPT-94232 Level 3 Est. Patient 17:50:07 CDT Fab Morales DO [facility] CPT-64648 Level 3 Est. Patient 12:06:29 CDT Elvira Cervantes MD PhD [facility] CPT-21846 Level 3 Est. Patient 15:50:32 CDT Tu Landeros MD [facility] CPT-05088 Level 4 Est. Patient 16:08:29 CDT Tu Landeros MD [facility] CPT-47507 Level 3 Est. Patient 16:04:19 CDT Tu Landeros MD [facility] CPT-75359 Level 3 Est. Patient 11:22:30 [employer] [facility] Tu Landeros MD [facility] CPT-41454 Level 4 Est. Patient 16:24:02 [employer] [facility]MENT Tu Landeros MD [facility] CPT-34777 Level 3 Est. Patient 17:21:23 [employer] [facility]MENT Tu Landeros MD [facility] Procedures Code Procedure Name Date Entry Date Standard Description CPT-33921 First Vx - Ix admin for Medicare patients 16:46:52 CDT CPT-73614 Fluzone Preservative Free Intramuscular Suspension 16:46 :51 CDT CPT-96239 CBC - LAB USE ONLY 17:14:46 CDT CPT-39775 HGBA1C - LAB USE ONLY 17:14:46 CDT CPT-59974 Venipuncture Draw Fee 17:14:46 CDT CPT-G0438 Initial Annual Wellness Exam 14:13:04 CDT CPT-81878 Breathing Tx 10:06:54 [employer] [facility] CPT-46928 Postop F/U Visit 10:02:45 CDT CPT-LR Lesion Removal 09:02:56 CDT CPT-JTINJ Asp/Joint Injection 15:51:27 [employer] [facility] CPT-OV Office Visit 15:52:02 [employer] CPT-OV Office Visit 15:45:11 CDT CPT-000 Give Zostavax 14:09:06 CDT CPT-59716 Administration single or combination vaccine inc oral 15 :19:04 CDT CPT-04445 Zoster Vaccine (Zostavax) 15:19:04 CDT CPT-32613 Administration single or combination vaccine inc oral 20 :51:03 CDT CPT-20493 Influenza split virus > age 3 20:51:03 CDT CPT-28766 No Charge Offi Visit 14:52:03 CDT CPT-OV Office Visit 14:57:43 CDT CPT-OV Office Visit 15:22:32 CDT CPT-15607 Administration single or combination vaccine inc oral 11 :33:15 CDT CPT-27803 Influenza split virus > age 3 11:33:15 CDT
--- OUTSIDE RECORDS SUMMARY | 2018-04-25 18:05 | XMS REPORT | Clinical Summary ---
Author Author Admin, SACHI Organization [employer] Address Unknown Phone Unavailable Allergies, Adverse Reactions, [...] female climacteric states Sebaceous cyst 706.2 Resolved uT Landeros MD Sebaceous cyst Leg edema, bilateral [...] ORAL TABLET 1 po BID MAGNESIUM OXIDE 42517617836 Active Tu Landeros MD Active SIMVASTATIN 20 MG ORAL TABLET 0.5 po qHS SIMVASTATIN 78713387619 Active Tu Landeros MD Active DICLOFENAC SODIUM 75 MG ORAL TABLET DELAYED RELEASE 1 po BID PRN Pain DICLOFENAC SODIUM 00520122820 No Longer Active Tu Landeros MD Active GABAPENTIN 100 MG ORAL CAPSULE 1 po TID GABAPENTIN 41893370048 Active Tu Landeros MD Active DICLOFENAC SODIUM 50 MG ORAL TABLET DELAYED RELEASE 1 po BID PRN Pain DICLOFENAC SODIUM 15374401606 No Longer Active Tu Landeros MD Active CYCLOBENZAPRINE HCL 10 MG ORAL TABLET 1 po TID PRN Muscle Spasm CYCLOBENZAPRINE HCL 08580993069 No Longer Active Tu Landeros MD Active INVOKANA 100 MG ORAL TABLET 1 po qd CANAGLIFLOZIN 96702583262 Active Tu Landeros MD Active GLIPIZIDE 5 MG ORAL TABLET 1 po qd GLIPIZIDE 56013130733 No Longer Active Tu Landeros MD Active VENLAFAXINE HCL 75 MG ORAL TABLET 1 po BID VENLAFAXINE HCL 98030398813 Active Tu Landeros MD Active GLIMEPIRIDE 1 MG ORAL TABLET 1 po qd GLIMEPIRIDE 06362896765 No Longer Active Tu Landeros MD Active TRUE METRIX BLOOD GLUCOSE TEST IN VITRO STRIP Test blood sugar BID Dx: E11.9 GLUCOSE BLOOD 29459639217 Active Tu Landeros MD Active TRUE METRIX AIR GLUCOSE METER w/Device KIT Test blood glucose BID Dx: E11.9 BLOOD GLUCOSE MONITORING SUPPL 27592846884 Active Tu Landeros MD Active TRUETEST TEST IN VITRO STRIP test blood sugar twice daily. DX 250.0 GLUCOSE BLOOD 76542452015 No Longer Active Mirna Stanley LPN Active TRUEDRAW LANCING DEVICE test blood sugar twice daily dx: 250.00 LANCET DEVICES 51162204066 No Longer Active Mirna Stanley LPN Active ENALAPRIL MALEATE 20 MG ORAL TABLET 2 po qd ENALAPRIL MALEATE 59281957280 Active Tu Landeros MD Active SUPER B COMPLEX/VITAMIN C ORAL TABLET 1 qd B COMPLEX- C 73607665836 No Longer Active Tu Landeros MD Active ASPIRIN EC 81 MG ORAL TABLET DELAYED RELEASE 1 po qd ASPIRIN 93054726733 Active Tu Landeros MD Active GLUCOSAMINE 500 MG TABS 2 po qd GLUCOSAMINE Active Tu Landeros MD Active FISH OIL 1000 MG ORAL CAPSULE 1 po qd OMEGA-3 FATTY ACIDS 58508320931 Active Tu Landeros MD Active METFORMIN HCL 1000 MG ORAL TABLET 1 po BID METFORMIN HCL 77727403395 Active Tu Landeros MD Active KLOR-CON 10 10 MEQ ORAL TABLET EXTENDED RELEASE 2 po qd POTASSIUM CHLORIDE 15960492729 Active Tu Landeros MD Active FUROSEMIDE 40 MG ORAL TABLET 1 po qd FUROSEMIDE 54076490546 Active Tu Landeros MD Active REQUIP 2 MG ORAL TABLET 1 po qHS PRN Restless legs ROPINIROLE HCL 67826015294 Active Tu Landeros MD Active REQUIP 2 MG ORAL TABLET Take one tablet at bedtime prn ROPINIROLE HCL 25610396793 No Longer Active Tu Landeros MD Active VENTOLIN HFA 108 (90 Base) MCG/ACT INHALATION AEROSOL SOLUTION 1-2 puffs every 4 hours if needed for cough/congestion ALBUTEROL SULFATE 63751621183 No Longer Active Ambika Aden APRN Active ZITHROMAX 250 MG ORAL TABLET 2 po today, then 1 po q days 2-5 AZITHROMYCIN 76717930501 No Longer Active Miranda Suresh APRN Active FLONASE 50 MCG/ACT NASAL SUSPENSION 1 spray each nostril twice daily until bottle empty FLUTICASONE PROPIONATE 74916667418 No Longer Active Tu Landeros MD Active COLACE 100 MG ORAL CAPSULE 1 po BID PRN Constipation DOCUSATE SODIUM 56556142412 Active Tu Landeros MD Active TRUERESULT BLOOD GLUCOSE w/Device KIT test blood sugar twice daily dx 250.00 BLOOD GLUCOSE MONITORING SUPPL 03153174643 No Longer Active Tu Landeros MD Active TRUEDRAW LANCING DEVICE Test twice a day dx 250.0 LANCET DEVICES 80249693038 No Longer Active Tu Landeros MD Active PREDNISONE 20 MG ORAL TABLET 2 tablets once daily for 2 days, then 1 tablet once daily for 2 days PREDNISONE 15286816266 No Longer Active Tu Landeros MD Active DICLOFENAC SODIUM 50 MG ORAL TABLET DELAYED RELEASE 1 tablet by mouth three times a day as needed DICLOFENAC SODIUM 89548662256 No Longer Active Fab Morales DO Active EMBRACE BLOOD GLUCOSE TEST IN VITRO STRIP test blood sugar twice daily DX 250.0 GLUCOSE BLOOD 32471325115 No Longer Active Tu Landeros MD Active TRUETEST TEST IN VITRO STRIP test blood sugar three times daily dx: 250.00 GLUCOSE BLOOD 43251577648 No Longer Active Suze VOGEL Active TRUERESULT BLOOD GLUCOSE w/Device KIT use to test blood sugar tid dx: 250.00 BLOOD GLUCOSE MONITORING SUPPL 94100378107 No Longer Active Suze Corey VOGEL Active ALIGN 4 MG ORAL CAPSULE 1 tid PROBIOTIC PRODUCT 17653120149 No Longer Active Shaun Sy MD Active CIPRO 500 MG ORAL TABLET 1 bid x 14 days start 09-28-13 CIPROFLOXACIN HCL 53145379599 No Longer Active Shaun Sy MD Active TRAMADOL HCL 50 MG ORAL TABLET 1-2 tablets every 6 hours as needed for pain TRAMADOL HCL 94618649343 Active Tu Landeros MD Active HYDROCODONE-ACETAMINOPHEN 5-325 MG ORAL TABLET 1 tab by mouth every 6 hours as needed for pain HYDROCODONE-ACETAMINOPHEN 83790069425 No Longer Active Tu Landeros MD Active OMEPRAZOLE 20 MG ORAL CAPSULE DELAYED RELEASE 1 po q a.m. OMEPRAZOLE 63811698434 Active Fab Morales DO Active GABAPENTIN 100 MG ORAL CAPSULE 1 po bid GABAPENTIN 23049945776 No Longer Active Tu Landeros MD Active B-12 100 MCG ORAL TABLET Take one by mouth daily CYANOCOBALAMIN 69671048351 No Longer Active Tu Landeros MD Active BACTRIM DS 800-160 MG ORAL TABLET 1 bid x 14 day start 09-28-13 SULFAMETHOXAZOLE-TRIMETHOPRIM 70653788608 No Longer Active Tu Landeros MD Active CARVEDILOL 12.5 MG ORAL TABLET 1 po BID CARVEDILOL 35988705050 Active Tu Landeros MD Active TRILIPIX 135 MG ORAL CAPSULE DELAYED RELEASE 1 q hs CHOLINE FENOFIBRATE 61133530254 Active Tu Landeros MD Active FENOFIBRATE 145 MG ORAL TABLET 1 po qd FENOFIBRATE 47186023546 No Longer Active JASPREET Perez Active OMEPRAZOLE 20 MG ORAL TABLET DELAYED RELEASE 1 PO 30 MIN BEFORE 1ST MEAL 2010 OMEPRAZOLE 03740206164 No Longer Active JASPREET Perez Active SIMVASTATIN 40 MG ORAL TABLET Take one by mouth daily SIMVASTATIN 44499143556 No Longer Active JASPREET Perez Active VENLAFAXINE HCL 75 MG ORAL TABLET 1 po BID VENLAFAXINE HCL 07870869775 No Longer Active JASPREET Perez Active CIPRO 500 MG ORAL TABLET 1 tablet by mouth twice daily CIPROFLOXACIN HCL 92316505891 No Longer Active Tu Landeros MD Active VENLAFAXINE HCL 37.5 MG ORAL TABLET 1 po BID VENLAFAXINE HCL 72457039876 No Longer Active Suze VOGEL Active LAMISIL 250 MG ORAL TABLET 1 po qd TERBINAFINE HCL 43287253387 No Longer Active Tu Landeros MD Active LORTAB 5-500 MG ORAL TABLET 1/2 to 1 tablet by mouth every 4 hours as needed for pain HYDROCODONE-ACETAMINOPHEN 54676704481 No Longer Active Tu Landeros MD Active HYDROCODONE-ACETAMINOPHEN 5-500 MG ORAL TABLET take one po Q 4-6 hours prn HYDROCODONE-ACETAMINOPHEN 81527787599 No Longer Active Tu Landeros MD Active BACTRIM DS 800-160 MG ORAL TABLET 1 po BID x 7 days SULFAMETHOXAZOLE-TRIMETHOPRIM 86088424297 No Longer Active Tu Landeros MD Active VENLAFAXINE HCL 75 MG ORAL TABLET 1 po BID VENLAFAXINE HCL 98664512781 No Longer Active Elvira Cervantes MD PhD Active TRAMADOL HCL 50 MG ORAL TABLET 1 tablets every 6 hours as needed for pain TRAMADOL HCL 26106665961 No Longer Active Tu Landeros MD Active ACCU-CHEK FASTCLIX LANCETS Use to check bloodsugar three times daily as needed LANCETS 40244576126 No Longer Active Tu Landeros MD Active ACCU-CHEK KEYONA PLUS IN VITRO STRIP Use for testing bloodsugars three times daily as needed GLUCOSE BLOOD 15581620066 No Longer Active Tu Landeros MD Active ACCU-CHEK KEYONA PLUS w/Device KIT Use for testing bloodsugars three times daily as needed BLOOD GLUCOSE MONITORING SUPPL 64456479624 No Longer Active Tu Landeros MD Active SPIRONOLACTONE 25 MG ORAL TABLET 0.5 tablet by mouth daily 09/09 SPIRONOLACTONE 65847078683 No Longer Active Tu Landeros MD Active ALPRAZOLAM 0.5 MG ORAL TABLET 1 tab every 6hrs as needed ALPRAZOLAM 59478649805 No Longer Active Tu Landeros MD Active AUGMENTIN 875-125 MG ORAL TABLET 1 tab by mouth twice daily with food AMOXICILLIN-POT CLAVULANATE 21814380391 No Longer Active Tu Landeros MD Active PREDNISONE 20 MG ORAL TABLET 2 tabs daily for 3 days, 1 tab daily for 3 days, 1/2 tab daily for 2 days PREDNISONE 63213433200 No Longer Active Tu Landeros MD Active XANAX 0.5 MG ORAL TABLET 1 tablet every 6 hrs prn ALPRAZOLAM 72344842545 No Longer Active Tu Landeros MD Active PREDNISONE 20 MG ORAL TABLET 2 tabs daily for 3 days, 1 tab daily for 3 days, 1/2 tab daily for 2 days PREDNISONE 01247557628 No Longer Active Tu Landeros MD Active TRIAMCINOLONE ACETONIDE 0.1 % EXTERNAL OINTMENT Apply to affected areas TID for up to 2 weeks TRIAMCINOLONE ACETONIDE 84447947931 No Longer Active Tu Landeros MD Active LORTAB 5-500 MG ORAL TABLET 1/2 to 1 tablet by mouth every 4 hours as needed for pain HYDROCODONE-ACETAMINOPHEN 90256970563 No Longer Active Tu Landeros MD Active MULTIVITAMINS TABS Take one by mouth daily MULTIPLE VITAMIN 22329306687 No Longer Active Tu Landeros MD Active MELATONIN 5 MG ORAL TABLET Take one by mouth daily MELATONIN 60630138133 No Longer Active Tu Landeros MD Active SOMA 350 MG ORAL TABLET 1 po q 6 hours prn spasm CARISOPRODOL 46784884519 No Longer Active Tu Landeros MD Active MECLIZINE HCL 25 MG ORAL TABLET CHEWABLE 1 four times a day as needed for dizziness MECLIZINE HCL 04747877897 No Longer Active Fab Morales DO Active ANGEL BREEZE 2 TEST IN VITRO DISK test tid prn GLUCOSE BLOOD 13817426203 No Longer Active Negra Scott RN Active REGLAN 10 MG ORAL TABLET 1 po TID PRN Nausea METOCLOPRAMIDE HCL 44182534348 No Longer Active Tu Landeros MD Active METFORMIN HCL 500 MG ORAL TABLET 1 PO BID METFORMIN HCL 99163808144 No Longer Active Tu Landeros MD Active AMBIEN 10 MG ORAL TABLET 1 tab by mouth at bedtime as needed for sleep 06/10 ZOLPIDEM TARTRATE 89039393378 No Longer Active uT Landeros MD Active FLUOXETINE HCL 40 MG ORAL CAPSULE 1 po q day FLUOXETINE HCL 06646326502 No Longer Active Mayra Terry Active TRILIPIX 135 MG ORAL CAPSULE DELAYED RELEASE 1 po qd CHOLINE FENOFIBRATE 84988129238 No Longer Active Tu Landeros MD Active AMBIEN 10 MG ORAL TABLET 1 tab by mouth at bedtime as needed for sleep 06/10 AMBIEN 10 MG ORAL TABLET 866748 ZOLPIDEM TARTRATE Inactive METFORMIN HCL 500 MG ORAL TABLET 1 PO BID METFORMIN HCL 500 MG ORAL TABLET 833214 METFORMIN HCL Inactive REGLAN 10 MG ORAL TABLET 1 po TID PRN Nausea REGLAN 10 MG ORAL TABLET 975446 METOCLOPRAMIDE HCL Inactive MECLIZINE HCL 25 MG ORAL TABLET CHEWABLE 1 four times a day as needed for dizziness MECLIZINE HCL 25 MG ORAL TABLET CHEWABLE 555671 MECLIZINE HCL Inactive SOMA 350 MG ORAL TABLET 1 po q 6 hours prn spasm SOMA 350 MG ORAL TABLET 911771 CARISOPRODOL Inactive MELATONIN 5 MG ORAL TABLET Take one by mouth daily MELATONIN 5 MG ORAL TABLET 430790 MELATONIN Inactive MULTIVITAMINS TABS Take one by mouth daily MULTIVITAMINS TABS MULTIPLE VITAMIN Inactive LORTAB 5-500 MG ORAL TABLET 1/2 to 1 tablet by mouth every 4 hours as needed for pain LORTAB 5-500 MG ORAL TABLET 142884 HYDROCODONE-ACETAMINOPHEN Inactive XANAX 0.5 MG ORAL TABLET 1 tablet every 6 hrs prn XANAX 0.5 MG ORAL TABLET 963130 ALPRAZOLAM Inactive AUGMENTIN 875-125 MG ORAL TABLET 1 tab by mouth twice daily with food AUGMENTIN 875-125 MG ORAL TABLET 641709 AMOXICILLIN-POT CLAVULANATE Inactive ALPRAZOLAM 0.5 MG ORAL TABLET 1 tab every 6hrs as needed ALPRAZOLAM 0.5 MG ORAL TABLET 170339 ALPRAZOLAM Inactive SPIRONOLACTONE 25 MG ORAL TABLET 0.5 tablet by mouth daily 09/09 SPIRONOLACTONE 25 MG ORAL TABLET 763828 SPIRONOLACTONE Inactive ACCU-CHEK KEYONA PLUS w/Device KIT [...] times daily as needed ACCU-CHEK FASTCLIX LANCETS 64453371603 LANCETS Inactive TRAMADOL HCL 50 MG ORAL TABLET 1 tablets every 6 hours as needed for pain TRAMADOL HCL 50 MG ORAL TABLET 445728 TRAMADOL HCL Inactive VENLAFAXINE HCL 75 MG ORAL TABLET 1 po BID VENLAFAXINE HCL 75 MG ORAL TABLET 161179 VENLAFAXINE HCL Inactive HYDROCODONE-ACETAMINOPHEN 5-500 MG ORAL TABLET take one po Q 4-6 hours prn HYDROCODONE-ACETAMINOPHEN 5-500 MG ORAL TABLET 678758 HYDROCODONE-ACETAMINOPHEN Inactive LORTAB 5-500 MG ORAL TABLET 1/2 to 1 tablet by mouth every 4 hours as needed for pain LORTAB 5-500 MG ORAL TABLET 861380 HYDROCODONE-ACETAMINOPHEN Inactive LAMISIL 250 MG ORAL TABLET 1 po qd LAMISIL 250 MG ORAL TABLET 780398 TERBINAFINE HCL Inactive VENLAFAXINE HCL 37.5 MG ORAL TABLET 1 po BID VENLAFAXINE HCL 37.5 MG ORAL TABLET 001960 VENLAFAXINE HCL Inactive CIPRO 500 MG ORAL TABLET 1 tablet by mouth twice daily CIPRO 500 MG ORAL TABLET 050849 CIPROFLOXACIN HCL Inactive VENLAFAXINE HCL 75 MG ORAL TABLET 1 po BID VENLAFAXINE HCL 75 MG ORAL TABLET 128285 VENLAFAXINE HCL Inactive SIMVASTATIN 40 MG ORAL TABLET Take one by mouth daily SIMVASTATIN 40 MG ORAL TABLET 130194 SIMVASTATIN Inactive OMEPRAZOLE 20 MG ORAL TABLET DELAYED RELEASE 1 PO 30 MIN BEFORE 1ST MEAL 2010 OMEPRAZOLE 20 MG ORAL TABLET DELAYED RELEASE 863150 OMEPRAZOLE Inactive FENOFIBRATE 145 MG ORAL TABLET 1 po qd FENOFIBRATE 145 MG ORAL TABLET 777861 FENOFIBRATE Inactive BACTRIM DS 800-160 MG ORAL TABLET 1 bid x 14 day start 09-28-13 BACTRIM DS 800-160 MG ORAL TABLET 151042 SULFAMETHOXAZOLE- TRIMETHOPRIM Inactive B-12 100 MCG ORAL TABLET Take one by mouth daily B-12 100 MCG ORAL TABLET CYANOCOBALAMIN Inactive GABAPENTIN 100 MG ORAL CAPSULE 1 po bid GABAPENTIN 100 MG ORAL CAPSULE 317795 GABAPENTIN Inactive HYDROCODONE-ACETAMINOPHEN 5-325 MG ORAL TABLET 1 tab by mouth every 6 hours as needed for pain HYDROCODONE-ACETAMINOPHEN 5-325 MG ORAL TABLET 303639 HYDROCODONE-ACETAMINOPHEN Inactive CIPRO 500 MG ORAL TABLET 1 bid x 14 days start 09-28-13 CIPRO 500 MG ORAL TABLET 777518 CIPROFLOXACIN HCL Inactive ALIGN 4 MG ORAL [...] SODIUM 50 MG ORAL TABLET DELAYED RELEASE 899925 DICLOFENAC SODIUM Inactive PREDNISONE 20 MG ORAL TABLET 2 tablets once daily for 2 days, then 1 tablet once daily for 2 days PREDNISONE 20 MG ORAL TABLET 056831 PREDNISONE Inactive TRUEDRAW LANCING DEVICE Test twice a day dx 250.0 TRUEDRAW LANCING DEVICE LANCET DEVICES Inactive TRUERESULT BLOOD GLUCOSE w/Device KIT test blood sugar twice daily dx 250.00 TRUERESULT BLOOD GLUCOSE w/Device KIT BLOOD GLUCOSE MONITORING SUPPL Inactive FLONASE 50 MCG/ACT NASAL SUSPENSION 1 spray each nostril twice daily until bottle empty FLONASE 50 MCG/ACT NASAL SUSPENSION 2398628 FLUTICASONE PROPIONATE Inactive VENTOLIN HFA 108 (90 Base) MCG/ACT INHALATION AEROSOL SOLUTION 1-2 puffs every 4 hours if needed for cough/congestion VENTOLIN HFA 108 (90 Base) MCG/ACT INHALATION AEROSOL SOLUTION ALBUTEROL SULFATE Inactive REQUIP 2 MG ORAL TABLET Take one tablet at bedtime prn REQUIP 2 MG ORAL TABLET 872639 ROPINIROLE HCL Inactive SUPER B COMPLEX/VITAMIN C ORAL TABLET 1 qd SUPER B COMPLEX/VITAMIN C ORAL TABLET 40425388261 B COMPLEX-C Inactive TRUEDRAW LANCING DEVICE test blood sugar twice daily dx: 250.00 TRUEDRAW LANCING DEVICE LANCET DEVICES Inactive TRUETEST TEST IN VITRO STRIP test blood sugar twice daily. DX 250.0 TRUETEST TEST IN VITRO STRIP GLUCOSE BLOOD Inactive CYCLOBENZAPRINE HCL 10 MG ORAL TABLET 1 po TID PRN Muscle Spasm CYCLOBENZAPRINE HCL 10 MG ORAL TABLET 512920 CYCLOBENZAPRINE HCL Inactive DICLOFENAC SODIUM 50 MG ORAL TABLET DELAYED RELEASE 1 po BID PRN Pain DICLOFENAC SODIUM 50 MG ORAL TABLET DELAYED RELEASE 447771 DICLOFENAC SODIUM Inactive DICLOFENAC SODIUM 75 MG ORAL TABLET DELAYED RELEASE 1 po BID PRN Pain DICLOFENAC SODIUM 75 MG ORAL TABLET DELAYED RELEASE 896269 DICLOFENAC SODIUM Inactive TRIAMCINOLONE ACETONIDE 0.1 % EXTERNAL OINTMENT Apply to affected areas TID for up to 2 weeks TRIAMCINOLONE ACETONIDE 0.1 % EXTERNAL OINTMENT 0768276 TRIAMCINOLONE ACETONIDE Inactive PREDNISONE 20 MG ORAL TABLET 2 tabs daily for 3 days, 1 tab daily for 3 days, 1/2 tab daily for 2 days PREDNISONE 20 MG ORAL TABLET 148015 PREDNISONE Inactive PREDNISONE 20 MG ORAL TABLET 2 tabs daily for 3 days, 1 tab daily for 3 days, 1/2 tab daily for 2 days PREDNISONE 20 MG ORAL TABLET 325448 PREDNISONE Inactive BACTRIM DS 800-160 MG ORAL TABLET 1 po BID x 7 days BACTRIM DS 800-160 MG ORAL TABLET 986950 SULFAMETHOXAZOLE-TRIMETHOPRIM Inactive ZITHROMAX 250 MG ORAL TABLET 2 po today, then 1 po q days 2-5 ZITHROMAX 250 MG ORAL TABLET 961053 AZITHROMYCIN Inactive Advance Directives Directive Description Start Date DISCUSSED WITH PATIENT -- NO DECISION MADE Immunizations Vaccine Administration Date Value Standard Description Seasonal influenza vaccine, injectable, containing preservative, for > 3 years old (Afluria, FluLaval, Fluzone, Fluvirin, Fluarix, Agriflu(>=18 yo)) Fluzone (>3 yrs.) [[id number]] Influenza, seasonal, injectable influenza immunization (Flu Vax) has been administered 02/22/2012 influenza virus vaccine, unspecified formulation Seasonal influenza vaccine, injectable, containing preservative, for > 3 years old (Afluria, FluLaval, Fluzone, Fluvirin, Fluarix, Agriflu(>=18 yo)) Fluzone (>3 yrs.) [[id number]] Influenza, seasonal, injectable Vital Signs Date Name [...] ... - Chemistry sodium, serum 141 mmol/L 853-123 9233/01/16 carbon dioxide, venous blood 28.3 mmol/L 21.0-32.0 [...] 6.7 % 4.3-6.0 cholesterol, serum 106 mg/dL 604-532 4750/01/16 triglyceride, serum, fasting 173 mg/dL 30-200 HDL [...] A1c - Chemistry cholesterol, serum 135 mg/dL 486-133 5532/05/17 HDL cholesterol, serum 41 mg/dL > OR=46 triglyceride, serum, fasting 206 mg/dL <150 LDL cholesterol, serum 53 MG/DL (CALC) mg/dL <130 cholesterol/HDL ratio, serum 3.3 (calc) < OR=5.0 Lab Report: HGBA1C - Chemistry hemoglobin A1C, blood, as % of total hemoglobin 6.5 % 4.3-6.0 Encounters Code Encounter Date Provider Facility CPT-16582 Level 4 Est. Patient 13:42:02 CERTIFIED SURGICAL FIRST ASSISTANT Tu Landeros MD [facility] CPT-77914 Level 3 Est. Patient 14:20:36 CDT Tu Landeros MD [facility] CPT-17571 Level 4 Est. Patient 14:28:34 CDT Tu Landeros MD [facility] CPT-64052 Level 3 Est. Patient 13:33:09 CDT Tu Landeros MD [facility] CPT-78289 Level 4 Est. Patient 14:29:21 CDT Tu Landeros MD [facility] CPT-20574 Level 4 Est. Patient 09:08:17 CERTIFIED SURGICAL FIRST ASSISTANT Tu Landeros MD [facility] CPT-31784 Level 4 Est. Patient 14:40:19 CDT Tu Landeros MD [facility] CPT-17532 Level 4 Est. Patient 14:06:04 CERTIFIED SURGICAL FIRST ASSISTANT Tu Landeros MD [facility] CPT-56071 Level 3 Est. Patient 14:05:18 CERTIFIED SURGICAL FIRST ASSISTANT Tu Landeros MD [facility] CPT-61948 Level 3 Est. Patient 10:06:54 CERTIFIED SURGICAL FIRST ASSISTANT Miranda Suresh APRN [facility] CPT-07138 Level 4 Est. Patient 13:50:18 CERTIFIED SURGICAL FIRST ASSISTANT Tu Landeros MD [facility] CPT-00831 Level 3 Est. Patient 10:30:04 CDT Tu Landeros MD [facility] CPT-07079 Level 4 Est. Patient 11:03:38 CDT Tu Landeros MD [facility] CPT-55500 Level 3 Est. Patient 10:20:44 CDT Fab Morales DO [facility] CPT-18887 Level 4 Est. Patient 14:38:57 CDT Tu Landeros MD [facility] CPT-92106 Level 4 Est. Patient 14:27:39 CERTIFIED SURGICAL FIRST ASSISTANT Tu Landeros MD [facility] CPT-62754 Level 4 Est. Patient 09:45:25 CDT Tu Landeros MD [facility] CPT-78194 Level 4 Est. Patient 09:05:20 CERTIFIED SURGICAL FIRST ASSISTANT Tu Landeros MD [facility] CPT-58624 Level 4 Est. Patient 14:09:06 CDT Tu Landeros MD [facility] CPT-98790 Level 3 Est. Patient 13:36:54 CDT Tu Landeros MD [facility] CPT-27020 Level 3 Est. Patient 08:59:14 CDT Tu Landeros MD [facility] CPT-24248 Level 3 Est. Patient 13:48:35 CDT Fab Morales DO [facility] CPT-58632 Level 4 Est. Patient 10:05:48 CDT Tu Landeros MD [facility] CPT-66289 Level 3 Est. Patient 13:38:42 CDT Marek BANKS [facility] CPT-56946 Level 5 Est. Patient 08:08:39 CDT Jerrica FRANCIS [facility] CPT-01562 Level 4 Est. Patient 14:23:38 CDT Tu Landeros MD [facility] CPT-29870 Level 3 Est. Patient 11:44:04 CDT Tu Landeros MD [facility] CPT-33733 Level 3 Est. Patient 11:03:20 CERTIFIED SURGICAL FIRST ASSISTANT Tu Landeros MD [facility] CPT-89596 Level 3 Est. Patient 11:03:14 CERTIFIED SURGICAL FIRST ASSISTANT Tu Landeros MD [facility] CPT-20752 Level 3 Est. Patient 12:42:49 CDT Tu Landeros MD [facility] CPT-67848 Level 3 Est. Patient 11:52:06 CDT Tu Landeros MD [facility] CPT-72432 Level 3 Est. Patient 13:58:11 CDT Tu Landeros MD [facility] CPT-84783 Level 3 Est. Patient 17:50:07 CDT Fab Morales DO [facility] CPT-41805 Level 3 Est. Patient 12:06:29 CDT Elvira Cervantes MD, PhD [facility] CPT-51465 Level 3 Est. Patient 15:50:32 CDT Tu Landeros MD [facility] CPT-86279 Level 4 Est. Patient 16:08:29 CDT Tu Landeros MD [facility] CPT-34811 Level 3 Est. Patient 16:04:19 CDT Tu Landeros MD [facility] CPT-31773 Level 3 Est. Patient 11:22:30 CERTIFIED SURGICAL FIRST ASSISTANT Tu Landeros MD [facility] CPT-43837 Level 4 Est. Patient 16:24:02 CERTIFIED SURGICAL FIRST ASSISTANT Tu Landeros MD [facility] CPT-88106 Level 3 Est. Patient 17:21:23 CERTIFIED SURGICAL FIRST ASSISTANT Tu Landeros MD [facility] Procedures Code Procedure Name Date Entry Date Standard Description CPT-45902 Shoulder, right, comp min 2V - XRAY USE ONLY 13:50:22 CDT CPT-G0009 Administration of Pneumococcal Vaccine 15:08:26 CDT CPT-20858 Prevnar 13 Intramuscular Suspension 15:08:26 CDT 10/08 CPT-G0439 [facility] Annual Wellness Exam 14:29:22 CDT CPT-53977 Venipuncture Draw Fee 13:15:35 CDT CPT-07969 Magnesium - LAB USE ONLY 11:14:20 CERTIFIED SURGICAL FIRST ASSISTANT CPT-03997 Lipid - LAB USE ONLY 11:14:20 CERTIFIED SURGICAL FIRST ASSISTANT CPT-53503 HGBA1C - LAB USE ONLY 11:14:20 CERTIFIED SURGICAL FIRST ASSISTANT CPT-16060 CMP - LAB USE ONLY 11:14:19 CERTIFIED SURGICAL FIRST ASSISTANT CPT-08304 CBC - LAB USE ONLY 11:14:19 CERTIFIED SURGICAL FIRST ASSISTANT CPT-85624 Venipuncture Draw Fee 11:14:18 CERTIFIED SURGICAL FIRST ASSISTANT CPT-71717 First Vx - Ix admin for Medicare patients 16:46:52 CDT CPT-21721 Fluzone Preservative Free Intramuscular Suspension 16:46 :51 CDT CPT-67518 CBC - LAB USE ONLY 17:14:46 CDT CPT-27828 HGBA1C - LAB USE ONLY 17:14:46 CDT CPT-10610 Venipuncture Draw Fee 17:14:46 CDT CPT-G0438 Initial Annual Wellness Exam 14:13:04 CDT CPT-18950 Breathing Tx 10:06:54 CERTIFIED SURGICAL FIRST ASSISTANT CPT-36097 Postop F/U Visit 10:02:45 CDT CPT-LR Lesion Removal 09:02:56 CDT CPT-JTINJ Asp/Joint Injection 15:51:27 CERTIFIED SURGICAL FIRST ASSISTANT CPT-OV Office Visit 15:52:02 CERTIFIED SURGICAL FIRST ASSISTANT CPT-OV Office Visit 15:45:11 CDT CPT-000 Give Zostavax 14:09:06 CDT CPT-34521 Administration single or combination vaccine inc oral 15 :19:04 CDT CPT-01492 Zoster Vaccine (Zostavax) 15:19:04 CDT CPT-14511 Administration single or combination vaccine inc oral 20 :51:03 CDT CPT-22731 Influenza split virus > age 3 20:51:03 CDT CPT-89972 No Charge Offi Visit 14:52:03 CDT CPT-OV Office Visit 14:57:43 CDT CPT-OV Office Visit 15:22:32 CDT CPT-31219 Administration single or combination vaccine inc oral 11 :33:15 CDT CPT-89716 Influenza split virus > age 3 11:33:15 CDT
--- OUTSIDE RECORDS SUMMARY | 2018-04-25 18:06 | XMS REPORT | Clinical Summary ---
Author Author Admin, SACHI Organization [employer] Address Unknown Phone Unavailable Allergies, Adverse Reactions, [...] blood sugar BID Dx: E11.9 GLUCOSE BLOOD 06491518571 Active Tu Landeros MD Active TRUE METRIX AIR GLUCOSE METER W/DEVICE KIT Test blood glucose BID Dx: E11.9 BLOOD GLUCOSE MONITORING SUPPL 63381090507 Active Tu Landeros MD Active TRUETEST TEST INVITR STRP test blood sugar twice daily. DX 250.0 GLUCOSE BLOOD 89514581044 No Longer Active Mirna Stanley LPN Active TRUEDRAW LANCING DEVICE MISC test blood sugar twice daily dx: 250.00 LANCET DEVICES 30432535028 No Longer Active Mirna Stanley LPN Active ENALAPRIL MALEATE 20 MG TABS 2 po qd ENALAPRIL MALEATE 62920290737 Active Tu Landeros MD Active SUPER B COMPLEX/VITAMIN C TABS 1 qd B COMPLEX-C 24726653570 No Longer Active Tu Landeros MD Active ASPIRIN EC 81 MG ORAL TBEC 1 po qd ASPIRIN 09587147846 Active Tu Landeros MD Active GLUCOSAMINE 500 MG TABS 2 po qd GLUCOSAMINE Active Tu Landeros MD Active SIMVASTATIN 40 MG TABS 0.5 po qHS SIMVASTATIN 96295966280 Active Tu Landeros MD Active FISH OIL 1000 MG CAPS 1 po qd OMEGA-3 FATTY ACIDS 73382599668 Active Tu Landeros MD Active METFORMIN HCL 1000 MG TABS 1 po BID METFORMIN HCL 10973913812 Active Tu Landeros MD Active KLOR-CON 10 10 MEQ CR-TABS 2 po qd POTASSIUM CHLORIDE 75829384903 Active Tu Landeros MD Active FUROSEMIDE 40 MG TAB 1 po qd FUROSEMIDE 72246758224 Active Tu Landeros MD Active REQUIP 2 MG ORAL TABS 1 po qHS PRN Restless legs ROPINIROLE HCL 34191615131 Active Tu Landeros MD Active VENLAFAXINE HCL 37.5 MG TABS 1 po BID VENLAFAXINE HCL 64810914586 Active Tu Landeros MD Active GABAPENTIN 100 MG CAPS 1 po BID GABAPENTIN 40497297280 Active José Luis Becerra MD Active REQUIP 2 MG TABS Take one tablet at bedtime prn ROPINIROLE HCL 01218701769 No Longer Active Tu Landeros MD Active VENTOLIN HFA 108 (90 BASE) MCG/ACT AERS 1-2 puffs every 4 hours if needed for cough/congestion ALBUTEROL SULFATE 68990489008 No Longer Active Ambika Aden APRN Active ZITHROMAX 250 MG TAB 2 po today, then 1 po q days 2-5 AZITHROMYCIN 09509077798 No Longer Active Miranda Suresh APRN Active FLONASE 50 MCG/ACT SUSP 1 spray each nostril twice daily until bottle empty FLUTICASONE PROPIONATE 10027358170 No Longer Active Tu Landeros MD Active COLACE 100 MG CAP 1 po BID PRN Constipation DOCUSATE SODIUM 74845376278 Active Tu Landeros MD Active TRUERESULT BLOOD GLUCOSE W/DEVICE KIT test blood sugar twice daily dx 250.00 BLOOD GLUCOSE MONITORING SUPPL 42164528012 No Longer Active Tu Landeros MD Active TRUEDRAW LANCING DEVICE MISC Test twice a day dx 250.0 LANCET DEVICES 02266950759 No Longer Active Tu Landeros MD Active PREDNISONE 20 MG TAB 2 tablets once daily for 2 days, then 1 tablet once daily for 2 days PREDNISONE 96563803040 No Longer Active Tu Landeros MD Active DICLOFENAC SODIUM 50 MG TBEC 1 tablet by mouth three times a day as needed DICLOFENAC SODIUM 18632725437 No Longer Active Fab Morales DO Active EMBRACE BLOOD GLUCOSE TEST STRP test blood sugar twice daily DX 250.0 2014 GLUCOSE BLOOD 85840858461 No Longer Active Tu Landeros MD Active TRUETEST TEST STRP test blood sugar three times daily dx: 250.00 GLUCOSE BLOOD 77045979125 No Longer Active Suzebianca VOGEL Active TRUERESULT BLOOD GLUCOSE W/DEVICE KIT use to test blood sugar tid dx: 250.00 BLOOD GLUCOSE MONITORING SUPPL 03473894898 No Longer Active Suze VOGEL Active ALIGN 4 MG CAPS 1 tid PROBIOTIC PRODUCT 93414535333 No Longer Active Shaun Sy MD Active CIPRO 500 MG TABS 1 bid x 14 days start 09-28-13 CIPROFLOXACIN HCL 85098266300 No Longer Active Shaun Sy MD Active TRAMADOL HCL 50 MG TABS 1-2 tablets every 6 hours as needed for pain TRAMADOL HCL 56108105769 Active Tu Landeros MD Active HYDROCODONE-ACETAMINOPHEN 5-325 MG TABS 1 tab by mouth every 6 hours as needed for pain HYDROCODONE-ACETAMINOPHEN 81073589730 No Longer Active Tu Landeros MD Active OMEPRAZOLE 20 MG CPDR 1 po q a.m. OMEPRAZOLE 49614355361 Active Tu Landeros MD Active GABAPENTIN 100 MG CAPS 1 po bid GABAPENTIN 28698121833 No Longer Active Tu Landeros MD Active B-12 100 MCG TABS Take one by mouth daily CYANOCOBALAMIN 97753284724 No Longer Active Tu Landeros MD Active BACTRIM DS 800-160 MG TABS 1 bid x 14 day start 09-28-13 SULFAMETHOXAZOLE-TRIMETHOPRIM 96170808601 No Longer Active Tu Landeros MD Active CARVEDILOL 12.5 MG TABS 1 po BID CARVEDILOL 54537882826 Active Tu Landeros MD Active TRILIPIX 135 MG CPDR 1 q hs CHOLINE FENOFIBRATE 01790358518 Active Tu Landeros MD Active FENOFIBRATE 145 MG TABS 1 po qd FENOFIBRATE 89034726170 No Longer Active JASPREET Perez Active OMEPRAZOLE 20 MG TBEC 1 PO 30 MIN BEFORE 1ST MEAL OMEPRAZOLE 67853896927 No Longer Active JASPREET Perez Active SIMVASTATIN 40 MG TABS Take one by mouth daily SIMVASTATIN 61356810967 No Longer Active JASPREET Perez Active VENLAFAXINE HCL 75 MG TABS 1 po BID VENLAFAXINE HCL 36495977236 No Longer Active JASPREET Perez Active CIPRO 500 MG TAB 1 tablet by mouth twice daily CIPROFLOXACIN HCL 55005800668 No Longer Active Tu Landeros MD Active VENLAFAXINE HCL 37.5 MG TABS 1 po BID VENLAFAXINE HCL 33602351648 No Longer Active Suzebianca NUNOA Active LAMISIL 250 MG TAB 1 po qd TERBINAFINE HCL 11338250549 No Longer Active Tu Landeros MD Active LORTAB 5 5-500 MG TABS 1/2 to 1 tablet by mouth every 4 hours as needed for pain HYDROCODONE-ACETAMINOPHEN 15006274063 No Longer Active Tu Landeros MD Active HYDROCODONE-ACETAMINOPHEN 5-500 MG TABS take one po Q 4-6 hours prn HYDROCODONE-ACETAMINOPHEN 22198854925 No Longer Active Tu Landeros MD Active BACTRIM DS 800-160 MG TABS 1 po BID x 7 days SULFAMETHOXAZOLE-TRIMETHOPRIM 73673124051 No Longer Active Tu Landeros MD Active VENLAFAXINE HCL 75 MG TABS 1 po BID VENLAFAXINE HCL 22274415164 No Longer Active Elvira Cervantes MD PhD Active TRAMADOL HCL 50 MG TABS 1 tablets every 6 hours as needed for pain TRAMADOL HCL 90015616231 No Longer Active Tu Landeros MD Active ACCU-CHEK FASTCLIX LANCETS MISC Use to check bloodsugar three times daily as needed LANCETS 85255397401 No Longer Active Tu Landeros MD Active ACCU-CHEK KEYONA PLUS STRP Use for testing bloodsugars three times daily as needed GLUCOSE BLOOD 58129193391 No Longer Active Tu Landeros MD Active ACCU-CHEK KEYONA PLUS W/DEVICE KIT Use for testing bloodsugars three times daily as needed BLOOD GLUCOSE MONITORING SUPPL 58342656827 No Longer Active Tu Landeros MD Active SPIRONOLACTONE 25 MG TAB 0.5 tablet by mouth daily SPIRONOLACTONE 45289384510 No Longer Active Tu Landeros MD Active ALPRAZOLAM 0.5 MG TABS 1 tab every 6hrs as needed ALPRAZOLAM 29553699146 No Longer Active Tu Landeros MD Active AUGMENTIN 875-125 MG TAB 1 tab by mouth twice daily with food AMOXICILLIN-POT CLAVULANATE 75150628935 No Longer Active Tu Landeros MD Active PREDNISONE 20 MG TAB 2 tabs daily for 3 days, 1 tab daily for 3 days, 1/2 tab daily for 2 days PREDNISONE 90509089364 No Longer Active Tu Landeros MD Active XANAX 0.5 MG TABS 1 tablet every 6 hrs prn ALPRAZOLAM 88525329956 No Longer Active Tu Landeros MD Active PREDNISONE 20 MG TAB 2 tabs daily for 3 days, 1 tab daily for 3 days, 1/2 tab daily for 2 days PREDNISONE 97212803813 No Longer Active Tu Landeros MD Active TRIAMCINOLONE ACETONIDE 0.1 % OINT Apply to affected areas TID for up to 2 weeks TRIAMCINOLONE ACETONIDE 60635022593 No Longer Active Tu Landeros MD Active LORTAB 5 5-500 MG TABS 1/2 to 1 tablet by mouth every 4 hours as needed for pain HYDROCODONE-ACETAMINOPHEN 01612601792 No Longer Active Tu Landeros MD Active MULTIVITAMINS TABS Take one by mouth daily MULTIPLE VITAMIN 48021695258 No Longer Active Tu Landeros MD Active MELATONIN 5 MG TABS Take one by mouth daily MELATONIN 03817591144 No Longer Active Tu Landeros MD Active SOMA 350 MG TAB 1 po q 6 hours prn spasm CARISOPRODOL 71310285368 No Longer Active Tu Landeros MD Active MECLIZINE HCL 25 MG CHEW TAB 1 four times a day as needed for dizziness 08/05 MECLIZINE HCL 65669758738 No Longer Active Fab Morales DO Active ANGEL BREEZE 2 TEST DISK test tid prn GLUCOSE BLOOD 55110870609 No Longer Active Negra Scott RN Active REGLAN 10 MG TAB 1 po TID PRN [place]ausea METOCLOPRAMIDE HCL 03083606811 No Longer Active Tu Landeros MD Active METFORMIN HCL 500 MG TABS 1 PO BID METFORMIN HCL 30232165540 No Longer Active Tu Landeros MD Active AMBIEN 10 MG TAB 1 tab by mouth at bedtime as needed for sleep ZOLPIDEM TARTRATE 81491600616 No Longer Active Tu Landeros MD Active FLUOXETINE HCL 40 MG CAPS 1 po q day FLUOXETINE HCL 17014828949 No Longer Active Mayra Terry Active TRILIPIX 135 MG CPDR 1 po qd CHOLINE FENOFIBRATE 35876984171 No Longer Active Tu Landeros MD Active AMBIEN 10 MG TAB 1 tab by mouth at bedtime as needed for sleep AMBIEN 10 MG TAB 079985 ZOLPIDEM TARTRATE Inactive METFORMIN HCL 500 MG TABS 1 PO BID METFORMIN HCL 500 MG TABS 213360 METFORMIN HCL Inactive REGLAN 10 MG TAB 1 po TID PRN Nausea REGLAN 10 MG TAB 301132 METOCLOPRAMIDE HCL Inactive MECLIZINE HCL 25 MG CHEW TAB 1 four times a day as needed for dizziness 08/05 MECLIZINE HCL 25 MG CHEW TAB 763442 MECLIZINE HCL Inactive SOMA 350 MG TAB 1 po q 6 hours prn spasm SOMA 350 MG TAB 492942 CARISOPRODOL Inactive MELATONIN 5 MG TABS Take one by mouth daily MELATONIN 5 MG TABS 496439 MELATONIN Inactive MULTIVITAMINS TABS Take one by mouth daily MULTIVITAMINS TABS MULTIPLE VITAMIN Inactive LORTAB 5 5-500 MG TABS 1/2 to 1 tablet by mouth every 4 hours as needed for pain LORTAB 5 5-500 MG TABS HYDROCODONE- ACETAMINOPHEN Inactive XANAX 0.5 MG TABS 1 tablet every 6 hrs prn XANAX 0.5 MG TABS 917524 ALPRAZOLAM Inactive AUGMENTIN 875-125 MG TAB 1 tab by mouth twice daily with food AUGMENTIN 875-125 MG TAB 743486 AMOXICILLIN-POT CLAVULANATE Inactive ALPRAZOLAM 0.5 MG TABS 1 tab every 6hrs as needed ALPRAZOLAM 0.5 MG TABS 275993 ALPRAZOLAM Inactive SPIRONOLACTONE 25 MG TAB 0.5 tablet by mouth daily SPIRONOLACTONE 25 MG TAB 481143 SPIRONOLACTONE Inactive ACCU-CHEK KEYONA PLUS W/DEVICE KIT Use for testing bloodsugars three times daily as needed ACCU-CHEK KEYONA PLUS W/DEVICE KIT BLOOD GLUCOSE MONITORING SUPPL Inactive ACCU-CHEK KEYONA PLUS STRP Use for testing bloodsugars three times daily as needed ACCU-CHEK KEYONA PLUS STRP GLUCOSE BLOOD Inactive ACCU-CHEK FASTCLIX LANCETS MISC Use to check bloodsugar three times daily as needed ACCU-CHEK FASTCLIX LANCETS MISC 57217467626 LANCETS Inactive TRAMADOL HCL 50 MG TABS 1 tablets every 6 hours as needed for pain TRAMADOL HCL 50 MG TABS 922541 TRAMADOL HCL Inactive VENLAFAXINE HCL 75 MG TABS 1 po BID VENLAFAXINE HCL 75 MG TABS 314348 VENLAFAXINE HCL Inactive HYDROCODONE-ACETAMINOPHEN 5-500 MG TABS take one po Q 4-6 hours prn HYDROCODONE-ACETAMINOPHEN 5-500 MG TABS HYDROCODONE- ACETAMINOPHEN Inactive LORTAB 5 5-500 MG TABS 1/2 to 1 tablet by mouth every 4 hours as needed for pain LORTAB 5 5-500 MG TABS HYDROCODONE- ACETAMINOPHEN Inactive LAMISIL 250 MG TAB 1 po qd LAMISIL 250 MG TAB 863352 TERBINAFINE HCL Inactive VENLAFAXINE HCL 37.5 MG TABS 1 po BID VENLAFAXINE HCL 37.5 MG TABS 581735 VENLAFAXINE HCL Inactive CIPRO 500 MG TAB 1 tablet by mouth twice daily CIPRO 500 MG TAB 005593 CIPROFLOXACIN HCL Inactive VENLAFAXINE HCL 75 MG TABS 1 po BID VENLAFAXINE HCL 75 MG TABS 382973 VENLAFAXINE HCL Inactive SIMVASTATIN 40 MG TABS Take one by mouth daily SIMVASTATIN 40 MG TABS 938001 SIMVASTATIN Inactive OMEPRAZOLE 20 MG TBEC 1 PO 30 MIN BEFORE 1ST MEAL OMEPRAZOLE 20 MG TBEC 324509 OMEPRAZOLE Inactive FENOFIBRATE 145 MG TABS 1 po qd FENOFIBRATE 145 MG TABS 081637 FENOFIBRATE Inactive BACTRIM DS 800-160 MG TABS 1 bid x 14 day start 09-28-13 BACTRIM DS 800-160 MG TABS 494438 SULFAMETHOXAZOLE-TRIMETHOPRIM Inactive B-12 100 MCG TABS Take one by mouth daily B-12 100 MCG TABS CYANOCOBALAMIN Inactive GABAPENTIN 100 MG CAPS 1 po bid GABAPENTIN 100 MG CAPS 398437 GABAPENTIN Inactive HYDROCODONE-ACETAMINOPHEN 5-325 MG TABS 1 tab by mouth every 6 hours as needed for pain HYDROCODONE-ACETAMINOPHEN 5-325 MG TABS 745245 HYDROCODONE-ACETAMINOPHEN Inactive CIPRO 500 MG TABS 1 bid x 14 days start 09-28-13 CIPRO 500 MG TABS 642932 CIPROFLOXACIN HCL Inactive ALIGN 4 MG CAPS [...] day as needed DICLOFENAC SODIUM 50 MG [facility] 416626 DICLOFENAC SODIUM Inactive PREDNISONE 20 MG TAB 2 tablets once daily for 2 days, then 1 tablet once daily for 2 days PREDNISONE 20 MG TAB 085410 PREDNISONE Inactive TRUEDRAW LANCING DEVICE MISC Test [...] at bedtime prn REQUIP 2 MG TABS 633484 ROPINIROLE HCL Inactive SUPER B COMPLEX/VITAMIN C TABS 1 qd SUPER B COMPLEX/ VITAMIN C TABS 43288171195 B COMPLEX-C Inactive TRUEDRAW LANCING DEVICE MISC test blood sugar twice daily dx: 250.00 TRUEDRAW LANCING DEVICE MISC LANCET DEVICES Inactive TRUETEST TEST INVITR STRP test blood sugar twice daily. DX 250.0 TRUETEST TEST INVITR STRP GLUCOSE BLOOD Inactive TRIAMCINOLONE ACETONIDE 0.1 % OINT Apply to affected areas TID for up to 2 weeks TRIAMCINOLONE ACETONIDE 0.1 % OINT 1356335 TRIAMCINOLONE ACETONIDE Inactive PREDNISONE 20 MG TAB 2 tabs daily for 3 days, 1 tab daily for 3 days, 1/2 tab daily for 2 days PREDNISONE 20 MG TAB 531876 PREDNISONE Inactive PREDNISONE 20 MG TAB 2 tabs daily for 3 days, 1 tab daily for 3 days, 1/2 tab daily for 2 days PREDNISONE 20 MG TAB 254392 PREDNISONE Inactive BACTRIM DS 800-160 MG TABS 1 po BID x 7 days BACTRIM DS 800-160 MG TABS 562004 SULFAMETHOXAZOLE-TRIMETHOPRIM Inactive ZITHROMAX 250 MG TAB 2 po today, then 1 po q days 2-5 ZITHROMAX 250 MG TAB 1179622 AZITHROMYCIN Inactive Advance Directives Directive Description Start Date DISCUSSED WITH PATIENT -- NO DECISION MADE Immunizations Vaccine Administration Date Value Standard Description Seasonal influenza vaccine, injectable, containing preservative, for > 3 years old (Afluria, FluLaval, Fluzone, Fluvirin, Fluarix, Agriflu(>=18 yo)) Fluzone (>3 yrs.) [[id number]] Influenza, seasonal, injectable influenza immunization (Flu Vax) has been administered 02/22/2012 influenza virus vaccine, unspecified formulation Seasonal influenza vaccine, injectable, containing preservative, for > 3 years old (Afluria, FluLaval, Fluzone, Fluvirin, Fluarix, Agriflu(>=18 yo)) Fluzone (>3 yrs.) [[id number]] Influenza, seasonal, injectable Vital Signs Date Name [...] Magnesium - Chemistry sodium, serum 143 mmol/L 872-924 6929/01/10 carbon dioxide, venous blood 28.0 mmol/L 21.0-32.0 potassium, serum 4.5 mmol/L 3.5-5.2 chloride, serum 104 mmol/L 98-107 blood glucose 158 mg/dL 65-110 urea nitrogen, blood 23 mg/dL 7-18 creatinine, serum 1.06 mg/dL 0.55-1.30 alanine aminotransferase (SGPT), serum 42 U/L 12-78 aspartate aminotransferase (SGOT), serum 32 U/L 15-37 calcium, serum 9.3 mg/dL 8.5-10.1 bilirubin, serum, total 0.20 mg/dL 0.00-1.00 cholesterol, serum 177 mg/dL 973-873 3893/01/10 triglyceride, serum, fasting 320 mg/dL 30-200 HDL cholesterol, serum 46 mg/dL 32-96 LDL cholesterol, serum 67 mg/dL 0-130 Lab Report: HGBA1C - Chemistry hemoglobin A1C, blood, as % of total hemoglobin 7.1 % 4.3-6.0 hemoglobin A1C, blood, as % of total hemoglobin 7.4 % 4.3-6.0 sodium, serum 140 mmol/L 587-467 3206/09/07 potassium, serum 4.3 mmol/L 3.5-5.2 chloride, serum [...] <30 Encounters Code Encounter Date Provider Facility CPT-50582 Level 4 Est. Patient 09:08:17 SEALER OPERATOR Tu Landeros MD [facility] CPT-44580 Level 4 Est. Patient 14:40:19 CDT Tu Landeros MD [facility] CPT-04716 Level 4 Est. Patient 14:06:04 SEALER OPERATOR Tu Landeros MD [facility] CPT-02413 Level 3 Est. Patient 14:05:18 SEALER OPERATOR Tu Landeros MD [facility] CPT-15093 Level 3 Est. Patient 10:06:54 SEALER OPERATOR Miranda Suresh APRN [facility] CPT-54353 Level 4 Est. Patient 13:50:18 SEALER OPERATOR Tu Landeros MD [facility] CPT-43019 Level 3 Est. Patient 10:30:04 CDT Tu Landeros MD [facility] CPT-83841 Level 4 Est. Patient 11:03:38 CDT Tu Landeros MD [facility] CPT-79288 Level 3 Est. Patient 10:20:44 CDT Fab Morales DO [facility] CPT-51847 Level 4 Est. Patient 14:38:57 CDT Tu Landeros MD [facility] CPT-07536 Level 4 Est. Patient 14:27:39 SEALER OPERATOR Tu Landeros MD [facility] CPT-96912 Level 4 Est. Patient 09:45:25 CDT Tu Landeros MD [facility] CPT-55299 Level 4 Est. Patient 09:05:20 SEALER OPERATOR Tu Landeros MD [facility] CPT-52369 Level 4 Est. Patient 14:09:06 CDT Tu Landeros MD [facility] CPT-26497 Level 3 Est. Patient 13:36:54 CDT Tu Landeros MD [facility] CPT-58016 Level 3 Est. Patient 08:59:14 CDT Tu Landeros MD [facility] CPT-73521 Level 3 Est. Patient 13:48:35 CDT Fab Morales DO [facility] CPT-56736 Level 4 Est. Patient 10:05:48 CDT Tu Landeros MD [facility] CPT-39428 Level 3 Est. Patient 13:38:42 CDT Marek BANKS [facility] CPT-02032 Level 5 Est. Patient 08:08:39 CDT Jerrica FRANCIS [facility] CPT-50557 Level 4 Est. Patient 14:23:38 CDT Tu Landeros MD [facility] CPT-43697 Level 3 Est. Patient 11:44:04 CDT Tu Landeros MD [facility] CPT-29966 Level 3 Est. Patient 11:03:20 SEALER OPERATOR Tu Landeros MD [facility] CPT-21437 Level 3 Est. Patient 11:03:14 SEALER OPERATOR Tu Landeros MD [facility] CPT-59322 Level 3 Est. Patient 12:42:49 CDT Tu Landeros MD [facility] CPT-09616 Level 3 Est. Patient 11:52:06 CDT Tu Landeros MD [facility] CPT-55424 Level 3 Est. Patient 13:58:11 CDT Tu Landeros MD [facility] CPT-27496 Level 3 Est. Patient 17:50:07 CDT Fab Morales DO [facility] CPT-62745 Level 3 Est. Patient 12:06:29 CDT Elvira Cervantes MD PhD [facility] CPT-56483 Level 3 Est. Patient 15:50:32 CDT Tu Landeros MD [facility] CPT-87489 Level 4 Est. Patient 16:08:29 CDT Tu Landeros MD [facility] CPT-79472 Level 3 Est. Patient 16:04:19 CDT Tu Landeros MD [facility] CPT-07190 Level 3 Est. Patient 11:22:30 SEALER OPERATOR Tu Landeros MD [facility] CPT-92888 Level 4 Est. Patient 16:24:02 SEALER OPERATOR Tu Landeros MD [facility] CPT-37344 Level 3 Est. Patient 17:21:23 SEALER OPERATOR Tu Landeros MD [facility] Procedures Code Procedure Name Date Entry Date Standard Description CPT-33872 Magnesium - LAB USE ONLY 11:14:20 SEALER OPERATOR CPT-06796 Lipid - LAB USE ONLY 11:14:20 SEALER OPERATOR CPT-92753 HGBA1C - LAB USE ONLY 11:14:20 SEALER OPERATOR CPT-94302 CMP - LAB USE ONLY 11:14:19 SEALER OPERATOR CPT-89443 CBC - LAB USE ONLY 11:14:19 SEALER OPERATOR CPT-19944 Venipuncture Draw Fee 11:14:18 SEALER OPERATOR CPT-88266 First Vx - Ix admin for Medicare patients 16:46:52 CDT CPT-18705 Fluzone Preservative Free Intramuscular Suspension 16:46 :51 CDT CPT-17316 CBC - LAB USE ONLY 17:14:46 CDT CPT-95894 HGBA1C - LAB USE ONLY 17:14:46 CDT CPT-98151 Venipuncture Draw Fee 17:14:46 CDT CPT-G0438 Initial Annual Wellness Exam 14:13:04 CDT CPT-48746 Breathing Tx 10:06:54 SEALER OPERATOR CPT-80500 Postop F/U Visit 10:02:45 CDT CPT-LR Lesion Removal 09:02:56 CDT CPT-JTINJ Asp/Joint Injection 15:51:27 SEALER OPERATOR CPT-OV Office Visit 15:52:02 SEALER OPERATOR CPT-OV Office Visit 15:45:11 CDT CPT-000 Give Zostavax 14:09:06 CDT CPT-34388 Administration single or combination vaccine inc oral 15 :19:04 CDT CPT-76102 Zoster Vaccine (Zostavax) 15:19:04 CDT CPT-30774 Administration single or combination vaccine inc oral 20 :51:03 CDT CPT-95063 Influenza split virus > age 3 20:51:03 CDT CPT-81745 No Charge Offi Visit 14:52:03 CDT CPT-OV Office Visit 14:57:43 CDT CPT-OV Office Visit 15:22:32 CDT CPT-72120 Administration single or combination vaccine inc oral 11 :33:15 CDT CPT-61707 Influenza split virus > age 3 11:33:15 CDT
--- OUTSIDE RECORDS SUMMARY | 2018-04-25 18:09 | XMS REPORT | Clinical Summary ---
Author Author Admin, SACHI Organization [email or web address] Address Unknown Phone Unavailable Allergies, Adverse Reactions, [...] BLEEDING ICD-627.1 Inactive Elvira Cervantes MD PhD GASTROENTERITIS ICD-558.9 Inactive Tu Landeros MD DIZZINESS ICD-780.4 Inactive Tu Landeros MD INSOMNIA, PERSISTENT ICD-307.42 Inactive uT Landeros MD LEG CRAMPS, NOCTURNAL [...] Hot flashes ICD-627.2 Inactive Tu Landeros MD Shoulder pain, right [...] SYRUP 5ml po q6hr PRN Cough PROMETHAZINE-CODEINE 14925926336 No Longer Active Tu Landeros MD Active AZITHROMYCIN 250 MG ORAL TABLET 2 po qd x 1, then 1 po qd x 4 AZITHROMYCIN 10306910154 No Longer Active Tu Landeros MD Active GUAIFENESIN ER 600 MG ORAL TABLET EXTENDED RELEASE 12 HOUR 1 twice a day as needed for congestion GUAIFENESIN 16544022472 No Longer Active Tu Landeros MD Active PREDNISONE 20 MG ORAL TABLET 2 po qd x 5 days PREDNISONE 81398484396 No Longer Active Tu Landeros MD Active FLUTICASONE PROPIONATE 50 MCG/ACT NASAL SUSPENSION 2 sprays/nostril qd PRN Congestion/Allergies FLUTICASONE PROPIONATE 20018987018 Active uT Landeros MD Active NASONEX 50 MCG/ACT NASAL SUSPENSION 2 actuations in each nostril q day 07/15 MOMETASONE FUROATE 99031422019 No Longer Active Tu Landeros MD Active MAGNESIUM OXIDE 400 MG ORAL TABLET 1 po BID MAGNESIUM OXIDE 68492384945 Active Tu Landeros MD Active SIMVASTATIN 20 MG ORAL TABLET 0.5 po qHS SIMVASTATIN 04525535257 Active Tu Landeros MD Active DICLOFENAC SODIUM 75 MG ORAL TABLET DELAYED RELEASE 1 po BID PRN Pain DICLOFENAC SODIUM 96638677792 No Longer Active Tu Landeros MD Active GABAPENTIN 100 MG ORAL CAPSULE 1 po TID GABAPENTIN 99027147401 Active Tu Landeros MD Active DICLOFENAC SODIUM 50 MG ORAL TABLET DELAYED RELEASE 1 po BID PRN Pain DICLOFENAC SODIUM 62240089568 No Longer Active Tu Landeros MD Active CYCLOBENZAPRINE HCL 10 MG ORAL TABLET 1 po TID PRN Muscle Spasm CYCLOBENZAPRINE HCL 06678815049 No Longer Active Tu Landeros MD Active INVOKANA 100 MG ORAL TABLET 1 po qd CANAGLIFLOZIN 46481137977 Active Tu Landeros MD Active GLIPIZIDE 5 MG ORAL TABLET 1 po qd GLIPIZIDE 39545954386 No Longer Active Tu Landeros MD Active VENLAFAXINE HCL 75 MG ORAL TABLET 1 po BID VENLAFAXINE HCL 36420050924 Active Tu Landeros MD Active GLIMEPIRIDE 1 MG ORAL TABLET 1 po qd GLIMEPIRIDE 94937761972 No Longer Active Tu Landeros MD Active TRUE METRIX BLOOD GLUCOSE TEST IN VITRO STRIP Test blood sugar BID Dx: E11.9 GLUCOSE BLOOD 53444796402 Active Tu Landeros MD Active TRUE METRIX AIR GLUCOSE METER w/Device KIT Test blood glucose BID Dx: E11.9 BLOOD GLUCOSE MONITORING SUPPL 41414078121 Active Tu Landeros MD Active TRUETEST TEST IN VITRO STRIP test blood sugar twice daily. DX 250.0 GLUCOSE BLOOD 32368102949 No Longer Active Mirna Stanley LPN Active TRUEDRAW LANCING DEVICE test blood sugar twice daily dx: 250.00 LANCET DEVICES 39772821965 No Longer Active Mirna Stanley LPN Active ENALAPRIL MALEATE 20 MG ORAL TABLET 2 po qd ENALAPRIL MALEATE 96673380968 Active Tu Landeros MD Active SUPER B COMPLEX/VITAMIN C ORAL TABLET 1 qd B COMPLEX- C 94935628267 No Longer Active Tu Landeros MD Active ASPIRIN EC 81 MG ORAL TABLET DELAYED RELEASE 1 po qd ASPIRIN 76052639128 Active Tu Landeros MD Active GLUCOSAMINE 500 MG TABS 2 po qd GLUCOSAMINE Active Tu Landeros MD Active FISH OIL 1000 MG ORAL CAPSULE 1 po qd OMEGA-3 FATTY ACIDS 52309463224 Active Tu Landeros MD Active METFORMIN HCL 1000 MG ORAL TABLET 1 po BID METFORMIN HCL 36451713443 Active Tu Landeros MD Active KLOR-CON 10 10 MEQ ORAL TABLET EXTENDED RELEASE 2 po qd POTASSIUM CHLORIDE 96071952013 Active Tu Landeros MD Active FUROSEMIDE 40 MG ORAL TABLET 1 po qd FUROSEMIDE 60594357325 Active Tu Landeros MD Active REQUIP 2 MG ORAL TABLET 1 po qHS PRN Restless legs ROPINIROLE HCL 91060211541 Active Tu Landeros MD Active REQUIP 2 MG ORAL TABLET Take one tablet at bedtime prn ROPINIROLE HCL 65797570811 No Longer Active Tu Landeros MD Active VENTOLIN HFA 108 (90 Base) MCG/ACT INHALATION AEROSOL SOLUTION 1-2 puffs every 4 hours if needed for cough/congestion ALBUTEROL SULFATE 92107628344 No Longer Active Ambika Aden APRN Active ZITHROMAX 250 MG ORAL TABLET 2 po today, then 1 po q days 2-5 AZITHROMYCIN 10764134761 No Longer Active Miranda Farah APRN Active FLONASE 50 MCG/ACT NASAL SUSPENSION 1 spray each nostril twice daily until bottle empty FLUTICASONE PROPIONATE 40868331641 No Longer Active Tu Landeros MD Active COLACE 100 MG ORAL CAPSULE 1 po BID PRN Constipation DOCUSATE SODIUM 25425888226 Active Tu Landeros MD Active TRUERESULT BLOOD GLUCOSE w/Device KIT test blood sugar twice daily dx 250.00 BLOOD GLUCOSE MONITORING SUPPL 86789881426 No Longer Active Tu Landeros MD Active TRUEDRAW LANCING DEVICE Test twice a day dx 250.0 LANCET DEVICES 34860189569 No Longer Active Tu Landeros MD Active PREDNISONE 20 MG ORAL TABLET 2 tablets once daily for 2 days, then 1 tablet once daily for 2 days PREDNISONE 29303817908 No Longer Active Tu Landeros MD Active DICLOFENAC SODIUM 50 MG ORAL TABLET DELAYED RELEASE 1 tablet by mouth three times a day as needed DICLOFENAC SODIUM 18637118058 No Longer Active Fab Morales DO Active EMBRACE BLOOD GLUCOSE TEST IN VITRO STRIP test blood sugar twice daily DX 250.0 GLUCOSE BLOOD 50604776065 No Longer Active Tu Landeros MD Active TRUETEST TEST IN VITRO STRIP test blood sugar three times daily dx: 250.00 GLUCOSE BLOOD 87711403853 No Longer Active Suze VOGEL Active TRUERESULT BLOOD GLUCOSE w/Device KIT use to test blood sugar tid dx: 250.00 BLOOD GLUCOSE MONITORING SUPPL 80900156211 No Longer Active Suze VOGEL Active ALIGN 4 MG ORAL CAPSULE 1 tid PROBIOTIC PRODUCT 32661972418 No Longer Active Shaun Sy MD Active CIPRO 500 MG ORAL TABLET 1 bid x 14 days start 09-28-13 CIPROFLOXACIN HCL 78443684188 No Longer Active Shaun Sy MD Active TRAMADOL HCL 50 MG ORAL TABLET 1-2 tablets every 6 hours as needed for pain TRAMADOL HCL 61425937720 Active Tu Landeros MD Active HYDROCODONE-ACETAMINOPHEN 5-325 MG ORAL TABLET 1 tab by mouth every 6 hours as needed for pain HYDROCODONE-ACETAMINOPHEN 95551842071 No Longer Active Tu Landeros MD Active OMEPRAZOLE 20 MG ORAL CAPSULE DELAYED RELEASE 1 po q a.m. OMEPRAZOLE 19153489038 Active Tu Landeros MD Active GABAPENTIN 100 MG ORAL CAPSULE 1 po bid GABAPENTIN 05736321150 No Longer Active Tu Landeros MD Active B-12 100 MCG ORAL TABLET Take one by mouth daily CYANOCOBALAMIN 91121780109 No Longer Active Tu Landeros MD Active BACTRIM DS 800-160 MG ORAL TABLET 1 bid x 14 day start 09-28-13 SULFAMETHOXAZOLE-TRIMETHOPRIM 67226852088 No Longer Active Tu Landeros MD Active CARVEDILOL 12.5 MG ORAL TABLET 1 po BID CARVEDILOL 68706250613 Active Tu Landeros MD Active TRILIPIX 135 MG ORAL CAPSULE DELAYED RELEASE 1 q hs CHOLINE FENOFIBRATE 43291820959 Active Tu Landeros MD Active FENOFIBRATE 145 MG ORAL TABLET 1 po qd FENOFIBRATE 95329931352 No Longer Active JASPREET Perez Active OMEPRAZOLE 20 MG ORAL TABLET DELAYED RELEASE 1 PO 30 MIN BEFORE 1ST MEAL 2010 OMEPRAZOLE 17581808504 No Longer Active JASPREET Perez Active SIMVASTATIN 40 MG ORAL TABLET Take one by mouth daily SIMVASTATIN 14910499826 No Longer Active JASPREET Perez Active VENLAFAXINE HCL 75 MG ORAL TABLET 1 po BID VENLAFAXINE HCL 13649183428 No Longer Active JASPREET Perez Active CIPRO 500 MG ORAL TABLET 1 tablet by mouth twice daily CIPROFLOXACIN HCL 64863907036 No Longer Active Tu Landeros MD Active VENLAFAXINE HCL 37.5 MG ORAL TABLET 1 po BID VENLAFAXINE HCL 34609415496 No Longer Active Suze NUNOA Active LAMISIL 250 MG ORAL TABLET 1 po qd TERBINAFINE HCL 01062220358 No Longer Active Tu Landeros MD Active LORTAB 5-500 MG ORAL TABLET 1/2 to 1 tablet by mouth every 4 hours as needed for pain HYDROCODONE-ACETAMINOPHEN 89233544882 No Longer Active Tu Landeros MD Active HYDROCODONE-ACETAMINOPHEN 5-500 MG ORAL TABLET take one po Q 4-6 hours prn HYDROCODONE-ACETAMINOPHEN 52681772600 No Longer Active Tu Landeros MD Active BACTRIM DS 800-160 MG ORAL TABLET 1 po BID x 7 days SULFAMETHOXAZOLE-TRIMETHOPRIM 38716542364 No Longer Active Tu Landeros MD Active VENLAFAXINE HCL 75 MG ORAL TABLET 1 po BID VENLAFAXINE HCL 61450903924 No Longer Active Elvira Cervantes MD PhD Active TRAMADOL HCL 50 MG ORAL TABLET 1 tablets every 6 hours as needed for pain TRAMADOL HCL 18450265047 No Longer Active Tu Landeros MD Active ACCU-CHEK FASTCLIX LANCETS Use to check bloodsugar three times daily as needed LANCETS 05191454360 No Longer Active Tu Landeros MD Active ACCU-CHEK KEYONA PLUS IN VITRO STRIP Use for testing bloodsugars three times daily as needed GLUCOSE BLOOD 50663979526 No Longer Active Tu Landeros MD Active ACCU-CHEK KEYONA PLUS w/Device KIT Use for testing bloodsugars three times daily as needed BLOOD GLUCOSE MONITORING SUPPL 61110561374 No Longer Active Tu Landeros MD Active SPIRONOLACTONE 25 MG ORAL TABLET 0.5 tablet by mouth daily 09/09 SPIRONOLACTONE 76427366912 No Longer Active Tu Landeros MD Active ALPRAZOLAM 0.5 MG ORAL TABLET 1 tab every 6hrs as needed ALPRAZOLAM 15506765716 No Longer Active Tu Landeros MD Active AUGMENTIN 875-125 MG ORAL TABLET 1 tab by mouth twice daily with food AMOXICILLIN-POT CLAVULANATE 94963696780 No Longer Active Tu Landeros MD Active PREDNISONE 20 MG ORAL TABLET 2 tabs daily for 3 days, 1 tab daily for 3 days, 1/2 tab daily for 2 days PREDNISONE 44715718632 No Longer Active Tu Landeros MD Active XANAX 0.5 MG ORAL TABLET 1 tablet every 6 hrs prn ALPRAZOLAM 15613602236 No Longer Active Tu Landeros MD Active PREDNISONE 20 MG ORAL TABLET 2 tabs daily for 3 days, 1 tab daily for 3 days, 1/2 tab daily for 2 days PREDNISONE 40388398818 No Longer Active Tu Landeros MD Active TRIAMCINOLONE ACETONIDE 0.1 % EXTERNAL OINTMENT Apply to affected areas TID for up to 2 weeks TRIAMCINOLONE ACETONIDE 68432485658 No Longer Active Tu Landeros MD Active LORTAB 5-500 MG ORAL TABLET 1/2 to 1 tablet by mouth every 4 hours as needed for pain HYDROCODONE-ACETAMINOPHEN 83395024970 No Longer Active Tu Landeros MD Active MULTIVITAMINS TABS Take one by mouth daily MULTIPLE VITAMIN 47001408084 No Longer Active Tu Landeros MD Active MELATONIN 5 MG ORAL TABLET Take one by mouth daily MELATONIN 32027841824 No Longer Active Tu Landeros MD Active SOMA 350 MG ORAL TABLET 1 po q 6 hours prn spasm CARISOPRODOL 56304161607 No Longer Active Tu Landeros MD Active MECLIZINE HCL 25 MG ORAL TABLET CHEWABLE 1 four times a day as needed for dizziness MECLIZINE HCL 93886444064 No Longer Active Fab Morales DO Active ANGEL BREEZE 2 TEST IN VITRO DISK test tid prn GLUCOSE BLOOD 76046822514 No Longer Active Negra Scott RN Active REGLAN 10 MG ORAL TABLET 1 po TID PRN Nausea METOCLOPRAMIDE HCL 89406640924 No Longer Active Tu Landeros MD Active METFORMIN HCL 500 MG ORAL TABLET 1 PO BID METFORMIN HCL 57382699408 No Longer Active Tu Landeros MD Active AMBIEN 10 MG ORAL TABLET 1 tab by mouth at bedtime as needed for sleep 06/10 ZOLPIDEM TARTRATE 36088425778 No Longer Active Tu Landeros MD Active FLUOXETINE HCL 40 MG ORAL CAPSULE 1 po q day FLUOXETINE HCL 05727572773 No Longer Active Mayra Terry Active TRILIPIX 135 MG ORAL CAPSULE DELAYED RELEASE 1 po qd CHOLINE FENOFIBRATE 96006591207 No Longer Active Tu Landeros MD Active AMBIEN 10 MG ORAL TABLET 1 tab by mouth at bedtime as needed for sleep 06/10 AMBIEN 10 MG ORAL TABLET 378621 ZOLPIDEM TARTRATE Inactive METFORMIN HCL 500 MG ORAL TABLET 1 PO BID METFORMIN HCL 500 MG ORAL TABLET 643379 METFORMIN HCL Inactive REGLAN 10 MG ORAL TABLET 1 po TID PRN Nausea REGLAN 10 MG ORAL TABLET 830469 METOCLOPRAMIDE HCL Inactive MECLIZINE HCL 25 MG ORAL TABLET CHEWABLE 1 four times a day as needed for dizziness MECLIZINE HCL 25 MG ORAL TABLET CHEWABLE 715877 MECLIZINE HCL Inactive SOMA 350 MG ORAL TABLET 1 po q 6 hours prn spasm SOMA 350 MG ORAL TABLET 866983 CARISOPRODOL Inactive MELATONIN 5 MG ORAL TABLET Take one by mouth daily MELATONIN 5 MG ORAL TABLET 798239 MELATONIN Inactive MULTIVITAMINS TABS Take one by mouth daily MULTIVITAMINS TABS MULTIPLE VITAMIN Inactive LORTAB 5-500 MG ORAL TABLET 1/2 to 1 tablet by mouth every 4 hours as needed for pain LORTAB 5-500 MG ORAL TABLET HYDROCODONE- ACETAMINOPHEN Inactive XANAX 0.5 MG ORAL TABLET 1 tablet every 6 hrs prn XANAX 0.5 MG ORAL TABLET 256067 ALPRAZOLAM Inactive AUGMENTIN 875-125 MG ORAL TABLET 1 tab by mouth twice daily with food AUGMENTIN 875-125 MG ORAL TABLET 222579 AMOXICILLIN-POT CLAVULANATE Inactive ALPRAZOLAM 0.5 MG ORAL TABLET 1 tab every 6hrs as needed ALPRAZOLAM 0.5 MG ORAL TABLET 554705 ALPRAZOLAM Inactive SPIRONOLACTONE 25 MG ORAL TABLET 0.5 tablet by mouth daily 09/09 SPIRONOLACTONE 25 MG ORAL TABLET 432132 SPIRONOLACTONE Inactive ACCU-CHEK KEYONA PLUS w/Device KIT [...] times daily as needed ACCU-CHEK FASTCLIX LANCETS 52362527662 LANCETS Inactive TRAMADOL HCL 50 MG ORAL TABLET 1 tablets every 6 hours as needed for pain TRAMADOL HCL 50 MG ORAL TABLET 996012 TRAMADOL HCL Inactive VENLAFAXINE HCL 75 MG ORAL TABLET 1 po BID VENLAFAXINE HCL 75 MG ORAL TABLET 288392 VENLAFAXINE HCL Inactive HYDROCODONE-ACETAMINOPHEN 5-500 MG ORAL TABLET take one po Q 4-6 hours prn HYDROCODONE-ACETAMINOPHEN 5-500 MG ORAL TABLET HYDROCODONE-ACETAMINOPHEN Inactive LORTAB 5-500 MG ORAL TABLET 1/2 to 1 tablet by mouth every 4 hours as needed for pain LORTAB 5-500 MG ORAL TABLET HYDROCODONE- ACETAMINOPHEN Inactive LAMISIL 250 MG ORAL TABLET 1 po qd LAMISIL 250 MG ORAL TABLET 780329 TERBINAFINE HCL Inactive VENLAFAXINE HCL 37.5 MG ORAL TABLET 1 po BID VENLAFAXINE HCL 37.5 MG ORAL TABLET 648570 VENLAFAXINE HCL Inactive CIPRO 500 MG ORAL TABLET 1 tablet by mouth twice daily CIPRO 500 MG ORAL TABLET 683011 CIPROFLOXACIN HCL Inactive VENLAFAXINE HCL 75 MG ORAL TABLET 1 po BID VENLAFAXINE HCL 75 MG ORAL TABLET 282005 VENLAFAXINE HCL Inactive SIMVASTATIN 40 MG ORAL TABLET Take one by mouth daily SIMVASTATIN 40 MG ORAL TABLET 495389 SIMVASTATIN Inactive OMEPRAZOLE 20 MG ORAL TABLET DELAYED RELEASE 1 PO 30 MIN BEFORE 1ST MEAL 2010 OMEPRAZOLE 20 MG ORAL TABLET DELAYED RELEASE 078797 OMEPRAZOLE Inactive FENOFIBRATE 145 MG ORAL TABLET 1 po qd FENOFIBRATE 145 MG ORAL TABLET 429417 FENOFIBRATE Inactive BACTRIM DS 800-160 MG ORAL TABLET 1 bid x 14 day start 09-28-13 BACTRIM DS 800-160 MG ORAL TABLET 647130 SULFAMETHOXAZOLE- TRIMETHOPRIM Inactive B-12 100 MCG ORAL TABLET Take one by mouth daily B-12 100 MCG ORAL TABLET CYANOCOBALAMIN Inactive GABAPENTIN 100 MG ORAL CAPSULE 1 po bid GABAPENTIN 100 MG ORAL CAPSULE 417129 GABAPENTIN Inactive HYDROCODONE-ACETAMINOPHEN 5-325 MG ORAL TABLET 1 tab by mouth every 6 hours as needed for pain HYDROCODONE-ACETAMINOPHEN 5-325 MG ORAL TABLET 970853 HYDROCODONE-ACETAMINOPHEN Inactive CIPRO 500 MG ORAL TABLET 1 bid x 14 days start 09-28-13 CIPRO 500 MG ORAL TABLET 742446 CIPROFLOXACIN HCL Inactive ALIGN 4 MG ORAL [...] SODIUM 50 MG ORAL TABLET DELAYED RELEASE 210206 DICLOFENAC SODIUM Inactive PREDNISONE 20 MG ORAL TABLET 2 tablets once daily for 2 days, then 1 tablet once daily for 2 days PREDNISONE 20 MG ORAL TABLET 079136 PREDNISONE Inactive TRUEDRAW LANCING DEVICE Test twice a day dx 250.0 TRUEDRAW LANCING DEVICE LANCET DEVICES Inactive TRUERESULT BLOOD GLUCOSE w/Device KIT test blood sugar twice daily dx 250.00 TRUERESULT BLOOD GLUCOSE w/Device KIT BLOOD GLUCOSE MONITORING SUPPL Inactive FLONASE 50 MCG/ACT NASAL SUSPENSION 1 spray each nostril twice daily until bottle empty FLONASE 50 MCG/ACT NASAL SUSPENSION 2900560 FLUTICASONE PROPIONATE Inactive VENTOLIN HFA 108 (90 Base) MCG/ACT INHALATION AEROSOL SOLUTION 1-2 puffs every 4 hours if needed for cough/congestion VENTOLIN HFA 108 (90 Base) MCG/ACT INHALATION AEROSOL SOLUTION ALBUTEROL SULFATE Inactive REQUIP 2 MG ORAL TABLET Take one tablet at bedtime prn REQUIP 2 MG ORAL TABLET 502646 ROPINIROLE HCL Inactive SUPER B COMPLEX/VITAMIN C ORAL TABLET 1 qd SUPER B COMPLEX/VITAMIN C ORAL TABLET 96631075483 B COMPLEX-C Inactive TRUEDRAW LANCING DEVICE test blood sugar twice daily dx: 250.00 TRUEDRAW LANCING DEVICE LANCET DEVICES Inactive TRUETEST TEST IN VITRO STRIP test blood sugar twice daily. DX 250.0 TRUETEST TEST IN VITRO STRIP GLUCOSE BLOOD Inactive CYCLOBENZAPRINE HCL 10 MG ORAL TABLET 1 po TID PRN Muscle Spasm CYCLOBENZAPRINE HCL 10 MG ORAL TABLET 101343 CYCLOBENZAPRINE HCL Inactive DICLOFENAC SODIUM 50 MG ORAL TABLET DELAYED RELEASE 1 po BID PRN Pain DICLOFENAC SODIUM 50 MG ORAL TABLET DELAYED RELEASE 391398 DICLOFENAC SODIUM Inactive DICLOFENAC SODIUM 75 MG ORAL TABLET DELAYED RELEASE 1 po BID PRN Pain DICLOFENAC SODIUM 75 MG ORAL TABLET DELAYED RELEASE 408061 DICLOFENAC SODIUM Inactive NASONEX 50 MCG/ACT NASAL SUSPENSION 2 actuations in each nostril q day 07/15 NASONEX 50 MCG/ACT NASAL SUSPENSION 9030771 MOMETASONE FUROATE Inactive GUAIFENESIN ER 600 MG ORAL TABLET EXTENDED RELEASE 12 HOUR 1 twice a day as needed for congestion GUAIFENESIN ER 600 MG ORAL TABLET EXTENDED RELEASE 12 HOUR GUAIFENESIN Inactive AZITHROMYCIN 250 MG ORAL TABLET 2 po qd x 1, then 1 po qd x 4 AZITHROMYCIN 250 MG ORAL TABLET 648381 AZITHROMYCIN Inactive PROMETHAZINE-CODEINE 6.25-10 MG/5ML ORAL SYRUP 5ml po q6hr PRN Cough PROMETHAZINE-CODEINE 6.25-10 MG/5ML ORAL SYRUP 238904 PROMETHAZINE-CODEINE Inactive TRIAMCINOLONE ACETONIDE 0.1 % EXTERNAL OINTMENT Apply to affected areas TID for up to 2 weeks TRIAMCINOLONE ACETONIDE 0.1 % EXTERNAL OINTMENT 5365915 TRIAMCINOLONE ACETONIDE Inactive PREDNISONE 20 MG ORAL TABLET 2 tabs daily for 3 days, 1 tab daily for 3 days, 1/2 tab daily for 2 days PREDNISONE 20 MG ORAL TABLET 476909 PREDNISONE Inactive PREDNISONE 20 MG ORAL TABLET 2 tabs daily for 3 days, 1 tab daily for 3 days, 1/2 tab daily for 2 days PREDNISONE 20 MG ORAL TABLET 235989 PREDNISONE Inactive BACTRIM DS 800-160 MG ORAL TABLET 1 po BID x 7 days BACTRIM DS 800-160 MG ORAL TABLET 706783 SULFAMETHOXAZOLE-TRIMETHOPRIM Inactive ZITHROMAX 250 MG ORAL TABLET 2 po today, then 1 po q days 2-5 ZITHROMAX 250 MG ORAL TABLET 224424 AZITHROMYCIN Inactive PREDNISONE 20 MG ORAL TABLET 2 po qd x 5 days PREDNISONE 20 MG ORAL TABLET 683334 PREDNISONE Inactive Advance Directives Directive Description Start Date DISCUSSED WITH PATIENT -- NO DECISION MADE Immunizations Vaccine Administration Date Value Standard Description Seasonal influenza vaccine, injectable, containing preservative, for > 3 years old (Afluria, FluLaval, Fluzone, Fluvirin, Fluarix, Agriflu(>=18 yo)) Fluzone (>3 yrs.) [[id number]] Influenza, seasonal, injectable influenza immunization (Flu Vax) has been administered 02/22/2012 influenza virus vaccine, unspecified formulation Seasonal influenza vaccine, injectable, containing preservative, for > 3 years old (Afluria, FluLaval, Fluzone, Fluvirin, Fluarix, Agriflu(>=18 yo)) Fluzone (>3 yrs.) [[id number]] Influenza, seasonal, injectable Vital Signs Date Name [...] ... - Chemistry sodium, serum 141 mmol/L 078-003 0477/01/16 carbon dioxide, venous blood 28.3 mmol/L 21.0-32.0 [...] 6.7 % 4.3-6.0 cholesterol, serum 106 mg/dL 082-487 8141/01/16 triglyceride, serum, fasting 173 mg/dL 30-200 HDL [...] 4.3-6.0 Encounters Code Encounter Date Provider Facility CPT-45533 Level 3 Est. Patient 09:11:32 CDT Tu Landeros MD [facility] CPT-71336 Level 3 Est. Patient 10:13:19 FIELD SALES REPRESENTATIVE Lesli Kellogg [facility] CPT-82743 Level 4 Est. Patient 13:42:02 FIELD SALES REPRESENTATIVE Tu Landeros MD [facility] CPT-93491 Level 3 Est. Patient 14:20:36 CDT Tu Landeros MD [facility] CPT-27310 Level 4 Est. Patient 14:28:34 CDT Tu Landeros MD [facility] CPT-57353 Level 3 Est. Patient 13:33:09 CDT Tu Landeros MD [facility] CPT-59749 Level 4 Est. Patient 14:29:21 CDT Tu Landeros MD [facility] CPT-25427 Level 4 Est. Patient 09:08:17 FIELD SALES REPRESENTATIVE Tu Landeros MD [facility] CPT-68094 Level 4 Est. Patient 14:40:19 CDT Tu Landeros MD [facility] CPT-63605 Level 4 Est. Patient 14:06:04 FIELD SALES REPRESENTATIVE Tu Landeros MD [facility] CPT-40776 Level 3 Est. Patient 14:05:18 FIELD SALES REPRESENTATIVE Tu Landeros MD [facility] CPT-19122 Level 3 Est. Patient 10:06:54 FIELD SALES REPRESENTATIVE Miranda Farah SALES TEACHER [facility] CPT-78856 Level 4 Est. Patient 13:50:18 FIELD SALES REPRESENTATIVE Tu Landeros MD [facility] CPT-68758 Level 3 Est. Patient 10:30:04 CDT Tu Landeros MD [facility] CPT-11074 Level 4 Est. Patient 11:03:38 CDT Tu Landeros MD [facility] CPT-38479 Level 3 Est. Patient 10:20:44 CDT Fab Morales DO [facility] CPT-65698 Level 4 Est. Patient 14:38:57 CDT Tu Landeros MD [facility] CPT-99117 Level 4 Est. Patient 14:27:39 FIELD SALES REPRESENTATIVE Tu Landeros MD [facility] CPT-42283 Level 4 Est. Patient 09:45:25 CDT Tu Landeros MD [facility] CPT-85126 Level 4 Est. Patient 09:05:20 FIELD SALES REPRESENTATIVE Tu Landeros MD [facility] CPT-10003 Level 4 Est. Patient 14:09:06 CDT Tu Landeros MD [facility] CPT-67713 Level 3 Est. Patient 13:36:54 CDT Tu Landeros MD [facility] CPT-83636 Level 3 Est. Patient 08:59:14 CDT Tu Landeros MD [facility] CPT-17612 Level 3 Est. Patient 13:48:35 CDT Fab Morales DO [facility] CPT-61094 Level 4 Est. Patient 10:05:48 CDT Tu Landeros MD [facility] CPT-34813 Level 3 Est. Patient 13:38:42 CDT Marek BANKS [facility] CPT-25922 Level 5 Est. Patient 08:08:39 CDT Jerrica FRANCIS [facility] CPT-23696 Level 4 Est. Patient 14:23:38 CDT Tu Landeros MD [facility] CPT-80919 Level 3 Est. Patient 11:44:04 CDT Tu Landeros MD [facility] CPT-93458 Level 3 Est. Patient 11:03:20 FIELD SALES REPRESENTATIVE Tu Landeros MD [facility] CPT-16621 Level 3 Est. Patient 11:03:14 FIELD SALES REPRESENTATIVE Tu Landeros MD [facility] CPT-90167 Level 3 Est. Patient 12:42:49 CDT Tu Landeros MD [facility] CPT-13401 Level 3 Est. Patient 11:52:06 CDT Tu Landeros MD [facility] CPT-62398 Level 3 Est. Patient 13:58:11 CDT Tu Landeros MD [facility] CPT-20339 Level 3 Est. Patient 17:50:07 CDT Fab Morales DO [facility] CPT-30303 Level 3 Est. Patient 12:06:29 CDT Elvira Cervantes MD, PhD [facility] CPT-11520 Level 3 Est. Patient 15:50:32 CDT Tu Landeros MD [facility] CPT-55763 Level 4 Est. Patient 16:08:29 CDT Tu Landeros MD [facility] CPT-58132 Level 3 Est. Patient 16:04:19 CDT Tu Landeros MD [facility] CPT-51847 Level 3 Est. Patient 11:22:30 FIELD SALES REPRESENTATIVE Tu Landeros MD [facility] CPT-62392 Level 4 Est. Patient 16:24:02 FIELD SALES REPRESENTATIVE Tu Landeros MD [facility] CPT-95205 Level 3 Est. Patient 17:21:23 FIELD SALES REPRESENTATIVE Tu Landeros MD [facility] Procedures Code Procedure Name Date Entry Date Standard Description CPT-20759 Shoulder, right, comp min 2V - XRAY USE ONLY 13:50:22 CDT CPT-G0009 Administration of Pneumococcal Vaccine 15:08:26 CDT CPT-64852 Prevnar 13 Intramuscular Suspension 15:08:26 CDT 10/08 CPT-G0439 Subsequent Annual Wellness Exam 14:29:22 CDT CPT-00492 Venipuncture Draw Fee 13:15:35 CDT CPT-54580 Magnesium - LAB USE ONLY 11:14:20 FIELD SALES REPRESENTATIVE CPT-59253 Lipid - LAB USE ONLY 11:14:20 FIELD SALES REPRESENTATIVE CPT-21093 HGBA1C - LAB USE ONLY 11:14:20 FIELD SALES REPRESENTATIVE CPT-48204 CMP - LAB USE ONLY 11:14:19 FIELD SALES REPRESENTATIVE CPT-35206 CBC - LAB USE ONLY 11:14:19 FIELD SALES REPRESENTATIVE CPT-70947 Venipuncture Draw Fee 11:14:18 FIELD SALES REPRESENTATIVE CPT-00997 First Vx - Ix admin for Medicare patients 16:46:52 CDT CPT-94865 Fluzone Preservative Free Intramuscular Suspension 16:46 :51 CDT CPT-78705 CBC - LAB USE ONLY 17:14:46 CDT CPT-09962 HGBA1C - LAB USE ONLY 17:14:46 CDT CPT-09977 Venipuncture Draw Fee 17:14:46 CDT CPT-G0438 Initial Annual Wellness Exam 14:13:04 CDT CPT-88832 Breathing Tx 10:06:54 FIELD SALES REPRESENTATIVE CPT-15207 Postop F/U Visit 10:02:45 CDT CPT-LR Lesion Removal 09:02:56 CDT CPT-JTINJ Asp/Joint Injection 15:51:27 FIELD SALES REPRESENTATIVE CPT-OV Office Visit 15:52:02 FIELD SALES REPRESENTATIVE CPT-OV Office Visit 15:45:11 CDT CPT-000 Give Zostavax 14:09:06 CDT CPT-14928 Administration single or combination vaccine inc oral 15 :19:04 CDT CPT-28808 Zoster Vaccine (Zostavax) 15:19:04 CDT CPT-49283 Administration single or combination vaccine inc oral 20 :51:03 CDT CPT-12048 Influenza split virus > age 3 20:51:03 CDT CPT-42211 No Charge Offi Visit 14:52:03 CDT CPT-OV Office Visit 14:57:43 CDT CPT-OV Office Visit 15:22:32 CDT CPT-72306 Administration single or combination vaccine inc oral 11 :33:15 CDT CPT-88968 Influenza split virus > age 3 11:33:15 CDT
--- OUTSIDE RECORDS SUMMARY | 2018-04-25 18:10 | XMS REPORT | Clinical Summary ---
Author Author Admin, SACHI Organization [facility] [facility] Address Unknown Phone Unavailable Allergies, Adverse Reactions, [...] not further specified 369.20 Active Ambika Markie PROTOHISTORIAN Moderate or severe vision impairment, both eyes, [...] hours if needed for cough/congestion ALBUTEROL SULFATE 11016815768 No Longer Active Ambika Aden APRN Active ZITHROMAX 250 MG TAB 2 po today, then 1 po q days 2-5 AZITHROMYCIN 95524494185 No Longer Active Miranda Suresh APRN Active METFORMIN HCL 1000 MG TABS 1 tablet by mouth twice daily METFORMIN HCL 42782759254 Active Tu Landeros MD Active FLONASE 50 MCG/ACT SUSP 1 spray each nostril twice daily until bottle empty FLUTICASONE PROPIONATE 68363923385 No Longer Active Tu Landeros MD Active COLACE 100 MG CAP 1 po BID PRN Constipation DOCUSATE SODIUM 74734915109 Active Tu Landeros MD Active SIMVASTATIN 40 MG TABS 0.5 tab daily at bedtime SIMVASTATIN 09643702506 Active Tu Landeros MD Active TRUERESULT BLOOD GLUCOSE W/DEVICE KIT test blood sugar twice daily dx 250.00 BLOOD GLUCOSE MONITORING SUPPL 40404849533 No Longer Active Tu Landeros MD Active TRUEDRAW LANCING DEVICE MISC Test twice a day dx 250.0 LANCET DEVICES 93445461329 No Longer Active Tu Landeros MD Active PREDNISONE 20 MG TAB 2 tablets once daily for 2 days, then 1 tablet once daily for 2 days PREDNISONE 80724176166 No Longer Active Tu Landeros MD Active DICLOFENAC SODIUM 50 MG TBEC 1 tablet by mouth three times a day as needed DICLOFENAC SODIUM 45243778653 No Longer Active Fab Morales DO Active TRUEDRAW LANCING DEVICE MISC test blood sugar twice daily dx: 250.00 LANCET DEVICES 68489148130 Active Tu Landeros MD Active TRUETEST TEST INVITR STRP test blood sugar twice daily. DX 250.0 GLUCOSE BLOOD 51646469053 Active Tu Landeros MD Active EMBRACE BLOOD GLUCOSE TEST STRP test blood sugar twice daily DX 250.0 2014 GLUCOSE BLOOD 17759749188 No Longer Active Tu Landeros MD Active TRUETEST TEST STRP test blood sugar three times daily dx: 250.00 GLUCOSE BLOOD 78300928253 No Longer Active Suzebianca VOGEL Active TRUERESULT BLOOD GLUCOSE W/DEVICE KIT use to test blood sugar tid dx: 250.00 BLOOD GLUCOSE MONITORING SUPPL 29181803240 No Longer Active Suze Corey RMA Active ALIGN 4 MG CAPS 1 tid PROBIOTIC PRODUCT 92181142221 No Longer Active Shaun Sy MD Active CIPRO 500 MG TABS 1 bid x 14 days start 09-28-13 CIPROFLOXACIN HCL 60292498814 No Longer Active Shaun Sy MD Active TRAMADOL HCL 50 MG TABS 1-2 tablets every 6 hours as needed for pain TRAMADOL HCL 28994406015 Active Tu Landeros MD Active HYDROCODONE-ACETAMINOPHEN 5-325 MG TABS 1 tab by mouth every 6 hours as needed for pain HYDROCODONE-ACETAMINOPHEN 12120641630 No Longer Active Tu Landeros MD Active OMEPRAZOLE 20 MG CPDR 1 po q a.m. OMEPRAZOLE 39180450054 Active Tu Landeros MD Active GABAPENTIN 100 MG CAPS 1 po bid GABAPENTIN 69826778769 No Longer Active Tu Landeros MD Active B-12 100 MCG TABS Take one by mouth daily CYANOCOBALAMIN 03783361088 No Longer Active Tu Landeros MD Active GABAPENTIN 100 MG CAPS by mouth twice a day GABAPENTIN 49265509574 Active Tiffanie Doyle Active BACTRIM DS 800-160 MG TABS 1 bid x 14 day start 8-14 SULFAMETHOXAZOLE-TRIMETHOPRIM 05409860598 No Longer Active Tu Landeros MD Active CARVEDILOL 12.5 MG TABS 1 po BID CARVEDILOL 55976906648 Active Tu Landeros MD Active SUPER B COMPLEX/VITAMIN C TABS 1 qd B COMPLEX-C 96899338354 Active JASPREET Perez Active TRILIPIX 135 MG CPDR 1 q hs CHOLINE FENOFIBRATE 57704186685 Active uT Landeros MD Active FENOFIBRATE 145 MG TABS 1 po qd FENOFIBRATE 59042780977 No Longer Active JASPREET Perez Active OMEPRAZOLE 20 MG TBEC 1 PO 30 MIN BEFORE 1ST MEAL OMEPRAZOLE 81356541313 No Longer Active JASPREET Perez Active SIMVASTATIN 40 MG TABS Take one by mouth daily SIMVASTATIN 24595566769 No Longer Active JASPREET Perez Active VENLAFAXINE HCL 37.5 MG TABS 1 bid VENLAFAXINE HCL 37552021716 Active Tu Landeros MD Active VENLAFAXINE HCL 75 MG TABS 1 po BID VENLAFAXINE HCL 19954514163 No Longer Active JASPREET Perez Active CIPRO 500 MG TAB 1 tablet by mouth twice daily CIPROFLOXACIN HCL 62918968356 No Longer Active Tu Landeros MD Active VENLAFAXINE HCL 37.5 MG TABS 1 po BID VENLAFAXINE HCL 89463269225 No Longer Active Suze Corey RMA Active LAMISIL 250 MG TAB 1 po qd TERBINAFINE HCL 61653961627 No Longer Active Tu Landeros MD Active LORTAB 5 5-500 MG TABS 1/2 to 1 tablet by mouth every 4 hours as needed for pain HYDROCODONE-ACETAMINOPHEN 31472114754 No Longer Active Tu Landeros MD Active ENALAPRIL MALEATE 20 MG TABS 1.5 po qd ENALAPRIL MALEATE 53941322306 Active Tu Landeros MD Active HYDROCODONE-ACETAMINOPHEN 5-500 MG TABS take one po Q 4-6 hours prn HYDROCODONE-ACETAMINOPHEN 71742128339 No Longer Active Tu Landeros MD Active BACTRIM DS 800-160 MG TABS 1 po BID x 7 days SULFAMETHOXAZOLE-TRIMETHOPRIM 37606922585 No Longer Active Tu Landeros MD Active VENLAFAXINE HCL 75 MG TABS 1 po BID VENLAFAXINE HCL 26234209105 No Longer Active Elvira Cervantes MD PhD Active TRAMADOL HCL 50 MG TABS 1 tablets every 6 hours as needed for pain TRAMADOL HCL 69227817365 No Longer Active Tu Landeros MD Active ACCU-CHEK FASTCLIX LANCETS MISC Use to check bloodsugar three times daily as needed LANCETS 23211035192 No Longer Active Tu Landeros MD Active ACCU-CHEK KEYONA PLUS STRP Use for testing bloodsugars three times daily as needed GLUCOSE BLOOD 83777164181 No Longer Active Tu Landeros MD Active ACCU-CHEK KEYONA PLUS W/DEVICE KIT Use for testing bloodsugars three times daily as needed BLOOD GLUCOSE MONITORING SUPPL 27824357081 No Longer Active Tu Landeros MD Active SPIRONOLACTONE 25 MG TAB 0.5 tablet by mouth daily SPIRONOLACTONE 37543459697 No Longer Active Tu Landeros MD Active ALPRAZOLAM 0.5 MG TABS 1 tab every 6hrs as needed ALPRAZOLAM 80563610278 No Longer Active Tu Landeros MD Active AUGMENTIN 875-125 MG TAB 1 tab by mouth twice daily with food AMOXICILLIN-POT CLAVULANATE 99497592012 No Longer Active Tu Landeros MD Active PREDNISONE 20 MG TAB 2 tabs daily for 3 days, 1 tab daily for 3 days, 1/2 tab daily for 2 days PREDNISONE 63644203262 No Longer Active Tu Landeros MD Active XANAX 0.5 MG TABS 1 tablet every 6 hrs prn ALPRAZOLAM 02628021380 No Longer Active Tu Landeros MD Active PREDNISONE 20 MG TAB 2 tabs daily for 3 days, 1 tab daily for 3 days, 1/2 tab daily for 2 days PREDNISONE 67404977176 No Longer Active Tu Landeros MD Active TRIAMCINOLONE ACETONIDE 0.1 % OINT Apply to affected areas TID for up to 2 weeks TRIAMCINOLONE ACETONIDE 41982245192 No Longer Active Tu Landeros MD Active LORTAB 5 5-500 MG TABS 1/2 to 1 tablet by mouth every 4 hours as needed for pain HYDROCODONE-ACETAMINOPHEN 99652638157 No Longer Active Tu Landeros MD Active MULTIVITAMINS TABS Take one by mouth daily MULTIPLE VITAMIN 71778137709 No Longer Active Tu Landeros MD Active MELATONIN 5 MG TABS Take one by mouth daily MELATONIN 46186619200 No Longer Active Tu Landeros MD Active SOMA 350 MG TAB 1 po q 6 hours prn spasm CARISOPRODOL 40954337248 No Longer Active Tu Landeros MD Active MECLIZINE HCL 25 MG CHEW TAB 1 four times a day as needed for dizziness 08/05 MECLIZINE HCL 95151661091 No Longer Active Fab Morales DO Active ANGEL BREEZE 2 TEST DISK test tid prn GLUCOSE BLOOD 23575197828 No Longer Active Negra Scott RN Active REGLAN 10 MG TAB 1 po TID PRN Nausea METOCLOPRAMIDE HCL 82966417155 No Longer Active Tu Landeros MD Active METFORMIN HCL 500 MG TABS 1 PO BID METFORMIN HCL 61308522977 No Longer Active Tu Landeros MD Active AMBIEN 10 MG TAB 1 tab by mouth at bedtime as needed for sleep ZOLPIDEM TARTRATE 66772693895 No Longer Active Tu Landeros MD Active FLUOXETINE HCL 40 MG CAPS 1 po q day FLUOXETINE HCL 09764482664 No Longer Active Mayra Terry Active FISH OIL 1000 MG CAPS Take one by mouth daily OMEGA-3 FATTY ACIDS 75342207967 Active Tu Landeros MD Active GLUCOSAMINE 500 MG TABS Take 2 tab po qd GLUCOSAMINE 52530142611 Active Tu Landeros MD Active TRILIPIX 135 MG CPDR 1 po qd CHOLINE FENOFIBRATE 44273128538 No Longer Active Tu Landeros MD Active ASPIRIN 81 MG CHEW TAB 1 tablet by mouth daily ASPIRIN 36377820285 Active Tu Landeros MD Active FUROSEMIDE 40 MG TAB 1 tablet by mouth daily FUROSEMIDE 91926987190 Active Tu Landeros MD Active REQUIP 2 MG TABS Take one tablet at bedtime prn ROPINIROLE HCL 08900067215 Active Tu Landeros MD Active KLOR-CON 10 10 MEQ CR-TABS TAKE 2 TABS DAILY POTASSIUM CHLORIDE 82514810387 Active Tu Landeros MD Active AMBIEN 10 MG TAB 1 tab by mouth at bedtime as needed for sleep AMBIEN 10 MG TAB 193982 ZOLPIDEM TARTRATE Inactive METFORMIN HCL 500 MG TABS 1 PO BID METFORMIN HCL 500 MG TABS 246964 METFORMIN HCL Inactive REGLAN 10 MG TAB 1 po TID PRN Nausea REGLAN 10 MG TAB 578398 METOCLOPRAMIDE HCL Inactive MECLIZINE HCL 25 MG CHEW TAB 1 four times a day as needed for dizziness 08/05 MECLIZINE HCL 25 MG CHEW TAB 400863 MECLIZINE HCL Inactive SOMA 350 MG TAB 1 po q 6 hours prn spasm SOMA 350 MG TAB 092742 CARISOPRODOL Inactive MELATONIN 5 MG TABS Take one by mouth daily MELATONIN 5 MG TABS 594742 MELATONIN Inactive MULTIVITAMINS TABS Take one by mouth daily MULTIVITAMINS TABS MULTIPLE VITAMIN Inactive LORTAB 5 5-500 MG TABS 1/2 to 1 tablet by mouth every 4 hours as needed for pain LORTAB 5 5-500 MG TABS HYDROCODONE- ACETAMINOPHEN Inactive XANAX 0.5 MG TABS 1 tablet every 6 hrs prn XANAX 0.5 MG TABS 578757 ALPRAZOLAM Inactive AUGMENTIN 875-125 MG TAB 1 tab by mouth twice daily with food AUGMENTIN 875-125 MG TAB 040771 AMOXICILLIN-POT CLAVULANATE Inactive ALPRAZOLAM 0.5 MG TABS 1 tab every 6hrs as needed ALPRAZOLAM 0.5 MG TABS 849237 ALPRAZOLAM Inactive SPIRONOLACTONE 25 MG TAB 0.5 tablet by mouth daily SPIRONOLACTONE 25 MG TAB 183757 SPIRONOLACTONE Inactive ACCU-CHEK KEYONA PLUS W/DEVICE KIT Use for testing bloodsugars three times daily as needed ACCU-CHEK KEYONA PLUS W/DEVICE KIT BLOOD GLUCOSE MONITORING SUPPL Inactive ACCU-CHEK KEYONA PLUS STRP Use for testing bloodsugars three times daily as needed ACCU-CHEK KEYONA PLUS STRP GLUCOSE BLOOD Inactive ACCU-CHEK FASTCLIX LANCETS MISC Use to check bloodsugar three times daily as needed ACCU-CHEK FASTCLIX LANCETS MISC 87883090913 LANCETS Inactive TRAMADOL HCL 50 MG TABS 1 tablets every 6 hours as needed for pain TRAMADOL HCL 50 MG TABS 052671 TRAMADOL HCL Inactive VENLAFAXINE HCL 75 MG TABS 1 po BID VENLAFAXINE HCL 75 MG TABS 951136 VENLAFAXINE HCL Inactive HYDROCODONE-ACETAMINOPHEN 5-500 MG TABS take one po Q 4-6 hours prn HYDROCODONE-ACETAMINOPHEN 5-500 MG TABS HYDROCODONE- ACETAMINOPHEN Inactive LORTAB 5 5-500 MG TABS 1/2 to 1 tablet by mouth every 4 hours as needed for pain LORTAB 5 5-500 MG TABS HYDROCODONE- ACETAMINOPHEN Inactive LAMISIL 250 MG TAB 1 po qd LAMISIL 250 MG TAB 586297 TERBINAFINE HCL Inactive VENLAFAXINE HCL 37.5 MG TABS 1 po BID VENLAFAXINE HCL 37.5 MG TABS 920356 VENLAFAXINE HCL Inactive CIPRO 500 MG TAB 1 tablet by mouth twice daily CIPRO 500 MG TAB 075766 CIPROFLOXACIN HCL Inactive VENLAFAXINE HCL 75 MG TABS 1 po BID VENLAFAXINE HCL 75 MG TABS 593045 VENLAFAXINE HCL Inactive SIMVASTATIN 40 MG TABS Take one by mouth daily SIMVASTATIN 40 MG TABS 098747 SIMVASTATIN Inactive OMEPRAZOLE 20 MG TBEC 1 PO 30 MIN BEFORE 1ST MEAL OMEPRAZOLE 20 MG TBEC 793629 OMEPRAZOLE Inactive FENOFIBRATE 145 MG TABS 1 po qd FENOFIBRATE 145 MG TABS 993261 FENOFIBRATE Inactive BACTRIM DS 800-160 MG TABS 1 bid x 14 day start 09-28-13 BACTRIM DS 800-160 MG TABS 495529 SULFAMETHOXAZOLE-TRIMETHOPRIM Inactive B-12 100 MCG TABS Take one by mouth daily B-12 100 MCG TABS CYANOCOBALAMIN Inactive GABAPENTIN 100 MG CAPS 1 po bid GABAPENTIN 100 MG CAPS 198723 GABAPENTIN Inactive HYDROCODONE-ACETAMINOPHEN 5-325 MG TABS 1 tab by mouth every 6 hours as needed for pain HYDROCODONE-ACETAMINOPHEN 5-325 MG TABS 536508 HYDROCODONE-ACETAMINOPHEN Inactive CIPRO 500 MG TABS 1 bid x 14 days start 09-28-13 CIPRO 500 MG TABS 510762 CIPROFLOXACIN HCL Inactive ALIGN 4 MG CAPS [...] as needed DICLOFENAC SODIUM 50 MG TBEC 973544 DICLOFENAC SODIUM Inactive PREDNISONE 20 MG TAB 2 tablets once daily for 2 days, then 1 tablet once daily for 2 days PREDNISONE 20 MG TAB 868927 PREDNISONE Inactive TRUEDRAW LANCING DEVICE MISC Test [...] 2 weeks TRIAMCINOLONE ACETONIDE 0.1 % OINT 6716243 TRIAMCINOLONE ACETONIDE Inactive PREDNISONE 20 MG TAB 2 tabs daily for 3 days, 1 tab daily for 3 days, 1/2 tab daily for 2 days PREDNISONE 20 MG TAB 705415 PREDNISONE Inactive PREDNISONE 20 MG TAB 2 tabs daily for 3 days, 1 tab daily for 3 days, 1/2 tab daily for 2 days PREDNISONE 20 MG TAB 744472 PREDNISONE Inactive BACTRIM DS 800-160 MG TABS 1 po BID x 7 days BACTRIM DS 800-160 MG TABS 241313 SULFAMETHOXAZOLE-TRIMETHOPRIM Inactive ZITHROMAX 250 MG TAB 2 po today, then 1 po q days 2-5 ZITHROMAX 250 MG TAB 9680260 AZITHROMYCIN Inactive Advance Directives Directive Description Start Date DISCUSSED WITH PATIENT -- NO DECISION MADE Immunizations Vaccine Administration Date Value Standard Description Seasonal influenza vaccine, injectable, containing preservative, for > 3 years old (Afluria, FluLaval, Fluzone, Fluvirin, Fluarix, Agriflu(>=18 yo)) Fluzone (>3 yrs.) [UIB005] Influenza, seasonal, injectable influenza immunization (Flu Vax) has been administered 02/22/2012 influenza virus vaccine, unspecified formulation Seasonal influenza vaccine, injectable, containing preservative, for > 3 years old (Afluria, FluLaval, Fluzone, Fluvirin, Fluarix, Agriflu(>=18 yo)) Fluzone (>3 yrs.) [[id number]] Influenza, seasonal, injectable Vital Signs Date Name [...] 4.5 mmol/L 3.5-5.2 sodium, serum 142 mmol/L 689-956 5076/10/08 calcium, serum 9.1 mg/dL 8.5-10.1 urea nitrogen, [...] 7.4 % 4.3-6.0 sodium, serum 140 mmol/L 320-603 7182/09/07 potassium, serum 4.3 mmol/L 3.5-5.2 chloride, serum 104 mmol/L 98-107 carbon dioxide, venous blood 27.7 mmol/L 21.0-32.0 blood glucose 156 mg/dL 65-110 calcium, serum 9.3 mg/dL 8.5-10.1 urea nitrogen, blood 23 mg/dL - creatinine, serum 1.21 mg/dL 0.55-1.30 hemoglobin A1C, blood, as % of total hemoglobin 7.7 % 4.3-6.0 Lab Report: Lipid Panel, Comp. Metabolic Panel - Chemistry cholesterol, serum 124 mg/dL 757-813 4347/01/12 triglyceride, serum, fasting 135 mg/dL 30-200 HDL cholesterol, serum 41 mg/dL 32-96 LDL cholesterol, serum 56 mg/dL 0-130 sodium, serum 140 mmol/L 463-974 0636/01/12 carbon dioxide, venous blood 27.7 mmol/L 21.0-32.0 potassium, serum 4.5 mmol/L 3.5-5.2 chloride, serum 104 mmol/L 98-107 blood glucose 139 mg/dL 65-110 urea nitrogen, blood 16 mg/dL 7-18 alanine aminotransferase (SGPT), serum 32 U/L 12-78 aspartate aminotransferase (SGOT), serum 25 U/L 15-37 calcium, serum 9.1 mg/dL 8.5-10.1 bilirubin, serum, total 0.50 mg/dL 0.00-1.00 Encounters Code Encounter Date Provider Facility CPT-91797 Level 4 Est. Patient 14:06:04 [employer]TERATION TAILOR Tu Landeros MD [facility] CPT-93377 Level 3 Est. Patient 14:05:18 [employer]TER[employer] TAILOR Tu Landeros MD [facility] CPT-55286 Level 3 Est. Patient 10:06:54 [employer]TERATION TAILOR Miranda Suresh APRN [facility] CPT-74919 Level 4 Est. Patient 13:50:18 [employer]TERATION TAILOR Tu Landeros MD [facility] CPT-97522 Level 3 Est. Patient 10:30:04 CDT Tu Landeros MD [facility] CPT-31070 Level 4 Est. Patient 11:03:38 CDT Tu Landeros MD [facility] CPT-47787 Level 3 Est. Patient 10:20:44 CDT Fab Morales DO [facility] CPT-02062 Level 4 Est. Patient 14:38:57 CDT Tu Landeros MD [facility] CPT-12381 Level 4 Est. Patient 14:27:39 [employer]TER[employer]ILOR Tu Landeros MD [facility] CPT-25110 Level 4 Est. Patient 09:45:25 CDT Tu Landeros MD [facility] CPT-22934 Level 4 Est. Patient 09:05:20 [employer]TERATION TAILOR Tu Landeros MD [facility] CPT-03101 Level 4 Est. Patient 14:09:06 CDT Tu Landeros MD [facility] CPT-73412 Level 3 Est. Patient 13:36:54 CDT Tu Landeros MD [facility] CPT-66374 Level 3 Est. Patient 08:59:14 CDT Tu Landeros MD [facility] CPT-91468 Level 3 Est. Patient 13:48:35 CDT Fab Morales DO [facility] CPT-81091 Level 4 Est. Patient 10:05:48 CDT Tu Landeros MD [facility] CPT-95364 Level 3 Est. Patient 13:38:42 CDT Marek BANKS [facility] CPT-47723 Level 5 Est. Patient 08:08:39 CDT Jerrica Dawsontay FRANCIS [facility] CPT-32151 Level 4 Est. Patient 14:23:38 CDT Tu Landeros MD [facility] CPT-43436 Level 3 Est. Patient 11:44:04 CDT Tu Landeros MD [facility] CPT-01804 Level 3 Est. Patient 11:03:20 [employer]IL[employer] Tu Landeros MD [facility] CPT-17640 Level 3 Est. Patient 11:03:14 [employer]ILOR Tu Landeros MD [facility] CPT-54117 Level 3 Est. Patient 12:42:49 CDT Tu Landeros MD [facility] CPT-44682 Level 3 Est. Patient 11:52:06 CDT Tu Landeros MD [facility] CPT-57271 Level 3 Est. Patient 13:58:11 CDT Tu Landeros MD [facility] CPT-51023 Level 3 Est. Patient 17:50:07 CDT Fab Morales DO [facility] CPT-34086 Level 3 Est. Patient 12:06:29 CDT Elvira Cervantes MD PhD [facility] CPT-84760 Level 3 Est. Patient 15:50:32 CDT Tu Landeros MD [facility] CPT-25671 Level 4 Est. Patient 16:08:29 CDT Tu Landeros MD [facility] CPT-86334 Level 3 Est. Patient 16:04:19 CDT Tu Landeros MD [facility] CPT-39790 Level 3 Est. Patient 11:22:30 [employer]IL[employer] Tu Landeros MD [facility] CPT-53133 Level 4 Est. Patient 16:24:02 [employer]ILOR Tu Landeros MD [facility] CPT-63286 Level 3 Est. Patient 17:21:23 [employer]IL[employer] Tu Landeros MD [facility] Procedures Code Procedure Name Date Entry Date Standard Description CPT-G0438 Initial Annual Wellness Exam 14:13:04 CDT CPT-15779 Breathing Tx 10:06:54 [employer] CPT-10472 Postop F/U Visit 10:02:45 CDT CPT-LR Lesion Removal 09:02:56 CDT CPT-JTINJ Asp/Joint Injection 15:51:27 [employer] CPT-OV Office Visit 15:52:02 [employer] CPT-OV Office Visit 15:45:11 CDT CPT-000 Give Zostavax 14:09:06 CDT CPT-95754 Administration single or combination vaccine inc oral 15 :19:04 CDT CPT-82782 Zoster Vaccine (Zostavax) 15:19:04 CDT CPT-70328 Administration single or combination vaccine inc oral 20 :51:03 CDT CPT-85383 Influenza split virus > age 3 20:51:03 CDT CPT-92242 No Charge Offi Visit 14:52:03 CDT CPT-OV Office Visit 14:57:43 CDT CPT-OV Office Visit 15:22:32 CDT CPT-09120 Administration single or combination vaccine inc oral 11 :33:15 CDT CPT-02032 Influenza split virus > age 3 11:33:15 CDT
--- OUTSIDE RECORDS SUMMARY | 2018-04-25 18:12 | XMS REPORT | Clinical Summary ---
Author Author Admin, SACHI Organization [employer] Address Unknown Phone Unavailable Allergies, Adverse [...] SCIATICA ICD-724.3 Inactive Tu Landeros MD 2012 FATIGUE ICD-780.79 Inactive Tu Landeros MD 2012 [...] MD Hot flashes ICD-627.2 Tessa Landeros MD Osteoarthritis ICD-715.90 Tessa Landeros MD Shoulder pain, right ICD-719.41 Tessa Landeros MD Vision impairment, both eyes, impairment level not further specified ICD- 369.20 Tessa Landeros MD Pain in unspecified foot ICD-729.5 Tessa Landeros MD Medication List Medication Instructions Start Date Stop Date Generic Name NDC Status Provider Patient Instruction GABAPENTIN 100 MG CAPS 1 po TID GABAPENTIN [id number] Active Tu Landeros MD Active DICLOFENAC SODIUM 50 MG ORAL TBEC 1 po BID PRN Pain DICLOFENAC SODIUM 25683155129 No Longer Active Tu Landeros MD Active CYCLOBENZAPRINE HCL 10 MG ORAL TABS 1 po TID PRN Muscle Spasm CYCLOBENZAPRINE HCL 34133314333 No Longer Active Tu Landeros MD Active INVOKANA 100 MG ORAL TABS 1 po qd CANAGLIFLOZIN 39652174550 Active Tu Landeros MD Active GLIPIZIDE 5 MG ORAL TABS 1 po qd GLIPIZIDE 92656476495 No Longer Active Tu Landeros MD Active VENLAFAXINE HCL 75 MG ORAL TABS 1 po BID VENLAFAXINE HCL 47577924348 Active Tu Landeros MD Active GLIMEPIRIDE 1 MG ORAL TABS 1 po qd GLIMEPIRIDE 91977894336 No Longer Active Tu Landeros MD Active TRUE METRIX BLOOD GLUCOSE TEST INVITR STRP Test blood sugar BID Dx: E11.9 GLUCOSE BLOOD 13130077401 Active Tu Landeros MD Active TRUE METRIX AIR GLUCOSE METER W/DEVICE KIT Test blood glucose BID Dx: E11.9 BLOOD GLUCOSE MONITORING SUPPL 17880109885 Active Tu Landeros MD Active TRUETEST TEST INVITR STRP test blood sugar twice daily. DX 250.0 GLUCOSE BLOOD 61567529988 No Longer Active Mirna Stanley LPN Active TRUEDRAW LANCING DEVICE MISC test blood sugar twice daily dx: 250.00 LANCET DEVICES 92620612082 No Longer Active Mirna Stanley LPN Active ENALAPRIL MALEATE 20 MG TABS 2 po qd ENALAPRIL MALEATE 79455869520 Active Lesli Kellogg APRN Active SUPER B COMPLEX/VITAMIN C TABS 1 qd B COMPLEX-C 71870516523 No Longer Active Tu Landeros MD Active ASPIRIN EC 81 MG ORAL TBEC 1 po qd ASPIRIN 84638492177 Active Tu Landeros MD Active GLUCOSAMINE 500 MG TABS 2 po qd GLUCOSAMINE Active Tu Landeros MD Active SIMVASTATIN 40 MG TABS 0.5 po qHS SIMVASTATIN 94579056009 Active Tu Landeros MD Active FISH OIL 1000 MG CAPS 1 po qd OMEGA-3 FATTY ACIDS 14430290430 Active Tu Landeros MD Active METFORMIN HCL 1000 MG TABS 1 po BID METFORMIN HCL 31649165878 Active Tu Landeros MD Active KLOR-CON 10 10 MEQ CR-TABS 2 po qd POTASSIUM CHLORIDE 17070882428 Active Tu Landeros MD Active FUROSEMIDE 40 MG TAB 1 po qd FUROSEMIDE 07759561939 Active Tu Landeros MD Active REQUIP 2 MG ORAL TABS 1 po qHS PRN Restless legs ROPINIROLE HCL 03968386994 Active Tu Landeros MD Active REQUIP 2 MG TABS Take one tablet at bedtime prn ROPINIROLE HCL 74026305745 No Longer Active Tu Landeros MD Active VENTOLIN HFA 108 (90 BASE) MCG/ACT AERS 1-2 puffs every 4 hours if needed for cough/congestion ALBUTEROL SULFATE 81015494116 No Longer Active Ambika Aden APRN Active ZITHROMAX 250 MG TAB 2 po today, then 1 po q days 2-5 AZITHROMYCIN 25040547588 No Longer Active Miranda Suresh APRN Active FLONASE 50 MCG/ACT SUSP 1 spray each nostril twice daily until bottle empty FLUTICASONE PROPIONATE 85776420152 No Longer Active Tu Landeros MD Active COLACE 100 MG CAP 1 po BID PRN Constipation DOCUSATE SODIUM 92224190433 Active Tu Landeros MD Active TRUERESULT BLOOD GLUCOSE W/DEVICE KIT test blood sugar twice daily dx 250.00 BLOOD GLUCOSE MONITORING SUPPL 43608211837 No Longer Active Tu Landeros MD Active TRUEDRAW LANCING DEVICE MISC Test twice a day dx 250.0 LANCET DEVICES 04251780929 No Longer Active Tu Landeros MD Active PREDNISONE 20 MG TAB 2 tablets once daily for 2 days, then 1 tablet once daily for 2 days PREDNISONE 61533506736 No Longer Active Tu Landeros MD Active DICLOFENAC SODIUM 50 MG TBEC 1 tablet by mouth three times a day as needed DICLOFENAC SODIUM 50979050620 No Longer Active Fab Morales DO Active EMBRACE BLOOD GLUCOSE TEST STRP test blood sugar twice daily DX 250.0 2014 GLUCOSE BLOOD 17574681367 No Longer Active Tu Landeros MD Active TRUETEST TEST STRP test blood sugar three times daily dx: 250.00 GLUCOSE BLOOD 82912058719 No Longer Active Suze Corey RMA Active TRUERESULT BLOOD GLUCOSE W/DEVICE KIT use to test blood sugar tid dx: 250.00 BLOOD GLUCOSE MONITORING SUPPL 04723369385 No Longer Active Suze Corey RMA Active ALIGN 4 MG CAPS 1 tid PROBIOTIC PRODUCT 91526385804 No Longer Active Shaun Sy MD Active CIPRO 500 MG TABS 1 bid x 14 days start 09-28-13 CIPROFLOXACIN HCL 30665860447 No Longer Active Shaun Sy MD Active TRAMADOL HCL 50 MG TABS 1-2 tablets every 6 hours as needed for pain TRAMADOL HCL 94823293071 Active Tu Landeros MD Active HYDROCODONE-ACETAMINOPHEN 5-325 MG TABS 1 tab by mouth every 6 hours as needed for pain HYDROCODONE-ACETAMINOPHEN 73523015871 No Longer Active Tu Landeros MD Active OMEPRAZOLE 20 MG CPDR 1 po q a.m. OMEPRAZOLE 25899141261 Active Fab Morales DO Active GABAPENTIN 100 MG CAPS 1 po bid GABAPENTIN 46305246721 No Longer Active Tu Landeros MD Active B-12 100 MCG TABS Take one by mouth daily CYANOCOBALAMIN 04669693042 No Longer Active Tu Landeros MD Active BACTRIM DS 800-160 MG TABS 1 bid x 14 day start 09-28-13 SULFAMETHOXAZOLE-TRIMETHOPRIM 09215083450 No Longer Active Tu Landeros MD Active CARVEDILOL 12.5 MG TABS 1 po BID CARVEDILOL 73080948996 Active Lesli Kellogg APRN Active TRILIPIX 135 MG CPDR 1 q hs CHOLINE FENOFIBRATE 16534885135 Active Tu Landeros MD Active FENOFIBRATE 145 MG TABS 1 po qd FENOFIBRATE 66706357920 No Longer Active JASPREET Perez Active OMEPRAZOLE 20 MG TBEC 1 PO 30 MIN BEFORE 1ST MEAL OMEPRAZOLE 31087880985 No Longer Active JASPREET Perez Active SIMVASTATIN 40 MG TABS Take one by mouth daily SIMVASTATIN 72738020577 No Longer Active JASPREET Perez Active VENLAFAXINE HCL 75 MG TABS 1 po BID VENLAFAXINE HCL 17178701657 No Longer Active JASPREET Perez Active CIPRO 500 MG TAB 1 tablet by mouth twice daily CIPROFLOXACIN HCL 26134001155 No Longer Active Tu Landeros MD Active VENLAFAXINE HCL 37.5 MG TABS 1 po BID VENLAFAXINE HCL 17678147079 No Longer Active Suzecandido Nicole RMA Active LAMISIL 250 MG TAB 1 po qd TERBINAFINE HCL 14550548670 No Longer Active Tu Landeros MD Active LORTAB 5 5-500 MG TABS 1/2 to 1 tablet by mouth every 4 hours as needed for pain HYDROCODONE-ACETAMINOPHEN 47411480858 No Longer Active Tu Landeros MD Active HYDROCODONE-ACETAMINOPHEN 5-500 MG TABS take one po Q 4-6 hours prn HYDROCODONE-ACETAMINOPHEN 82147695812 No Longer Active Tu Landeros MD Active BACTRIM DS 800-160 MG TABS 1 po BID x 7 days SULFAMETHOXAZOLE-TRIMETHOPRIM 27504154025 No Longer Active Tu Landeros MD Active VENLAFAXINE HCL 75 MG TABS 1 po BID VENLAFAXINE HCL 32952514007 No Longer Active Elvira Cervantes MD PhD Active TRAMADOL HCL 50 MG TABS 1 tablets every 6 hours as needed for pain TRAMADOL HCL 44801122820 No Longer Active Tu Landeros MD Active ACCU-CHEK FASTCLIX LANCETS MISC Use to check bloodsugar three times daily as needed LANCETS 51232326438 No Longer Active Tu Landeros MD Active ACCU-CHEK KEYONA PLUS STRP Use for testing bloodsugars three times daily as needed GLUCOSE BLOOD 49105740240 No Longer Active Tu Landeros MD Active ACCU-CHEK KEYONA PLUS W/DEVICE KIT Use for testing bloodsugars three times daily as needed BLOOD GLUCOSE MONITORING SUPPL 53391359447 No Longer Active Tu Landeros MD Active SPIRONOLACTONE 25 MG TAB 0.5 tablet by mouth daily SPIRONOLACTONE 59863431230 No Longer Active Tu Landeros MD Active ALPRAZOLAM 0.5 MG TABS 1 tab every 6hrs as needed ALPRAZOLAM 63161995691 No Longer Active Tu Landeros MD Active AUGMENTIN 875-125 MG TAB 1 tab by mouth twice daily with food AMOXICILLIN-POT CLAVULANATE 81894023804 No Longer Active Tu Landeros MD Active PREDNISONE 20 MG TAB 2 tabs daily for 3 days, 1 tab daily for 3 days, 1/2 tab daily for 2 days PREDNISONE 09178627725 No Longer Active Tu Landeros MD Active XANAX 0.5 MG TABS 1 tablet every 6 hrs prn ALPRAZOLAM 87310806079 No Longer Active Tu Landeros MD Active PREDNISONE 20 MG TAB 2 tabs daily for 3 days, 1 tab daily for 3 days, 1/2 tab daily for 2 days PREDNISONE 46797338516 No Longer Active Tu Landeros MD Active TRIAMCINOLONE ACETONIDE 0.1 % OINT Apply to affected areas TID for up to 2 weeks TRIAMCINOLONE ACETONIDE 65458433487 No Longer Active Tu Landeros MD Active LORTAB 5 5-500 MG TABS 1/2 to 1 tablet by mouth every 4 hours as needed for pain HYDROCODONE-ACETAMINOPHEN 15335935513 No Longer Active Tu Landeros MD Active MULTIVITAMINS TABS Take one by mouth daily MULTIPLE VITAMIN 57532671214 No Longer Active Tu Landeros MD Active MELATONIN 5 MG TABS Take one by mouth daily MELATONIN 14559303148 No Longer Active Tu Landeros MD Active SOMA 350 MG TAB 1 po q 6 hours prn spasm CARISOPRODOL 80842806094 No Longer Active Tu Landeros MD Active MECLIZINE HCL 25 MG CHEW TAB 1 four times a day as needed for dizziness 08/05 MECLIZINE HCL 47936921292 No Longer Active Fab Morales DO Active ANGEL BREEZE 2 TEST DISK test tid prn GLUCOSE BLOOD 47234399432 No Longer Active Negra Scott RN Active REGLAN 10 MG TAB 1 po TID PRN Nausea METOCLOPRAMIDE HCL 11531401497 No Longer Active Tu Landeros MD Active METFORMIN HCL 500 MG TABS 1 PO BID METFORMIN HCL 02049539793 No Longer Active Tu Landeros MD Active AMBIEN 10 MG TAB 1 tab by mouth at bedtime as needed for sleep ZOLPIDEM TARTRATE 67859491957 No Longer Active Tu Landeros MD Active FLUOXETINE HCL 40 MG CAPS 1 po q day FLUOXETINE HCL 57541101828 No Longer Active Mayra [place] Active TRILIPIX 135 MG CPDR 1 po qd CHOLINE FENOFIBRATE 35011809887 No Longer Active Tu Landeros MD Active AMBIEN 10 MG TAB 1 tab by mouth at bedtime as needed for sleep AMBIEN 10 MG TAB 655177 ZOLPIDEM TARTRATE Inactive METFORMIN HCL 500 MG TABS 1 PO BID METFORMIN HCL 500 MG TABS 315297 METFORMIN HCL Inactive REGLAN 10 MG TAB 1 po TID PRN Nausea REGLAN 10 MG TAB 384360 METOCLOPRAMIDE HCL Inactive MECLIZINE HCL 25 MG CHEW TAB 1 four times a day as needed for dizziness 08/05 MECLIZINE HCL 25 MG CHEW TAB 579563 MECLIZINE HCL Inactive SOMA 350 MG TAB 1 po q 6 hours prn spasm SOMA 350 MG TAB 907551 CARISOPRODOL Inactive MELATONIN 5 MG TABS Take one by mouth daily MELATONIN 5 MG TABS 843211 MELATONIN Inactive MULTIVITAMINS TABS Take one by mouth daily MULTIVITAMINS TABS MULTIPLE VITAMIN Inactive LORTAB 5 5-500 MG TABS 1/2 to 1 tablet by mouth every 4 hours as needed for pain LORTAB 5 5-500 MG TABS HYDROCODONE- ACETAMINOPHEN Inactive XANAX 0.5 MG TABS 1 tablet every 6 hrs prn XANAX 0.5 MG TABS 405585 ALPRAZOLAM Inactive AUGMENTIN 875-125 MG TAB 1 tab by mouth twice daily with food AUGMENTIN 875-125 MG TAB 358108 AMOXICILLIN-POT CLAVULANATE Inactive ALPRAZOLAM 0.5 MG TABS 1 tab every 6hrs as needed ALPRAZOLAM 0.5 MG TABS 212341 ALPRAZOLAM Inactive SPIRONOLACTONE 25 MG TAB 0.5 tablet by mouth daily SPIRONOLACTONE 25 MG TAB 563430 SPIRONOLACTONE Inactive ACCU-CHEK KEYONA PLUS W/DEVICE KIT Use for testing bloodsugars three times daily as needed ACCU-CHEK KEYONA PLUS W/DEVICE KIT BLOOD GLUCOSE MONITORING SUPPL Inactive ACCU-CHEK KEYONA PLUS STRP Use for testing bloodsugars three times daily as needed ACCU-CHEK KEYONA PLUS STRP GLUCOSE BLOOD Inactive ACCU-CHEK FASTCLIX LANCETS MISC Use to check bloodsugar three times daily as needed ACCU-CHEK FASTCLIX LANCETS MISC 90474350296 LANCETS Inactive TRAMADOL HCL 50 MG TABS 1 tablets every 6 hours as needed for pain TRAMADOL HCL 50 MG TABS 707101 TRAMADOL HCL Inactive VENLAFAXINE HCL 75 MG TABS 1 po BID VENLAFAXINE HCL 75 MG TABS 716456 VENLAFAXINE HCL Inactive HYDROCODONE-ACETAMINOPHEN 5-500 MG TABS take one po Q 4-6 hours prn HYDROCODONE-ACETAMINOPHEN 5-500 MG TABS HYDROCODONE- ACETAMINOPHEN Inactive LORTAB 5 5-500 MG TABS 1/2 to 1 tablet by mouth every 4 hours as needed for pain LORTAB 5 5-500 MG TABS HYDROCODONE- ACETAMINOPHEN Inactive LAMISIL 250 MG TAB 1 po qd LAMISIL 250 MG TAB 056258 TERBINAFINE HCL Inactive VENLAFAXINE HCL 37.5 MG TABS 1 po BID VENLAFAXINE HCL 37.5 MG TABS 710419 VENLAFAXINE HCL Inactive CIPRO 500 MG TAB 1 tablet by mouth twice daily CIPRO 500 MG TAB 576497 CIPROFLOXACIN HCL Inactive VENLAFAXINE HCL 75 MG TABS 1 po BID VENLAFAXINE HCL 75 MG TABS 620013 VENLAFAXINE HCL Inactive SIMVASTATIN 40 MG TABS Take one by mouth daily SIMVASTATIN 40 MG TABS 118550 SIMVASTATIN Inactive OMEPRAZOLE 20 MG TBEC 1 PO 30 MIN BEFORE 1ST MEAL OMEPRAZOLE 20 MG TBEC 548718 OMEPRAZOLE Inactive FENOFIBRATE 145 MG TABS 1 po qd FENOFIBRATE 145 MG TABS 046483 FENOFIBRATE Inactive BACTRIM DS 800-160 MG TABS 1 bid x 14 day start 09-28-13 BACTRIM DS 800-160 MG TABS 295276 SULFAMETHOXAZOLE-TRIMETHOPRIM Inactive B-12 100 MCG TABS Take one by mouth daily B-12 100 MCG TABS CYANOCOBALAMIN Inactive GABAPENTIN 100 MG CAPS 1 po bid GABAPENTIN 100 MG CAPS 412771 GABAPENTIN Inactive HYDROCODONE-ACETAMINOPHEN 5-325 MG TABS 1 tab by mouth every 6 hours as needed for pain HYDROCODONE-ACETAMINOPHEN 5-325 MG TABS 349435 HYDROCODONE-ACETAMINOPHEN Inactive CIPRO 500 MG TABS 1 bid x 14 days start 09-28-13 CIPRO 500 MG TABS 879995 CIPROFLOXACIN HCL Inactive ALIGN 4 MG CAPS [...] as needed DICLOFENAC SODIUM 50 MG TBEC 884539 DICLOFENAC SODIUM Inactive PREDNISONE 20 MG TAB 2 tablets once daily for 2 days, then 1 tablet once daily for 2 days PREDNISONE 20 MG TAB 776427 PREDNISONE Inactive TRUEDRAW LANCING DEVICE MISC Test twice a day dx 250.0 TRUEDRAW LANCING DEVICE MISC LANCET DEVICES Inactive TRUERESULT BLOOD GLUCOSE W/DEVICE KIT test blood sugar twice daily dx 250.00 TRUERESULT BLOOD GLUCOSE W/DEVICE KIT BLOOD GLUCOSE MONITORING SUPPL Inactive FLONASE 50 MCG/ACT SUSP 1 spray each nostril twice daily until bottle empty FLONASE 50 MCG/ACT SUSP 0131583 FLUTICASONE PROPIONATE Inactive VENTOLIN HFA 108 (90 BASE) MCG/ACT AERS 1-2 puffs every 4 hours if needed for cough/congestion VENTOLIN HFA 108 (90 BASE) MCG/ACT AERS ALBUTEROL SULFATE Inactive REQUIP 2 MG TABS Take one tablet at bedtime prn REQUIP 2 MG TABS 803020 ROPINIROLE HCL Inactive SUPER B COMPLEX/VITAMIN C TABS 1 qd SUPER B COMPLEX/ VITAMIN C TABS 77452568549 B COMPLEX-C Inactive TRUEDRAW LANCING DEVICE MISC test blood sugar twice daily dx: 250.00 TRUEDRAW LANCING DEVICE MISC LANCET DEVICES Inactive TRUETEST TEST INVITR STRP test blood sugar twice daily. DX 250.0 TRUETEST TEST INVITR STRP GLUCOSE BLOOD Inactive CYCLOBENZAPRINE HCL 10 MG ORAL TABS 1 po TID PRN Muscle Spasm CYCLOBENZAPRINE HCL 10 MG ORAL TABS 189616 CYCLOBENZAPRINE HCL Inactive DICLOFENAC SODIUM 50 MG ORAL TBEC 1 po BID PRN Pain DICLOFENAC SODIUM 50 MG ORAL TBEC 242081 DICLOFENAC SODIUM Inactive TRIAMCINOLONE ACETONIDE 0.1 % OINT Apply to affected areas TID for up to 2 weeks TRIAMCINOLONE ACETONIDE 0.1 % OINT 3977058 TRIAMCINOLONE ACETONIDE Inactive PREDNISONE 20 MG TAB 2 tabs daily for 3 days, 1 tab daily for 3 days, 1/2 tab daily for 2 days PREDNISONE 20 MG TAB 433443 PREDNISONE Inactive PREDNISONE 20 MG TAB 2 tabs daily for 3 days, 1 tab daily for 3 days, 1/2 tab daily for 2 days PREDNISONE 20 MG TAB 651844 PREDNISONE Inactive BACTRIM DS 800-160 MG TABS 1 po BID x 7 days BACTRIM DS 800-160 MG TABS 963444 SULFAMETHOXAZOLE-TRIMETHOPRIM Inactive ZITHROMAX 250 MG TAB 2 po today, then 1 po q days 2-5 ZITHROMAX 250 MG TAB 6309283 AZITHROMYCIN Inactive Advance Directives Directive Description Start Date DISCUSSED WITH PATIENT -- NO DECISION MADE Immunizations Vaccine Administration Date Value Standard Description Seasonal influenza vaccine, injectable, containing preservative, for > 3 years old (Afluria, FluLaval, Fluzone, Fluvirin, Fluarix, Agriflu(>=18 yo)) Fluzone (>3 yrs.) [[id number]] Influenza, seasonal, injectable influenza immunization (Flu Vax) has been administered 02/22/2012 influenza virus vaccine, unspecified formulation Seasonal influenza vaccine, injectable, containing preservative, for > 3 years old (Afluria, FluLaval, Fluzone, Fluvirin, Fluarix, Agriflu(>=18 yo)) Fluzone (>3 yrs.) [[id number]] Influenza, seasonal, injectable Vital Signs Date Name [...] Magnesium - Chemistry sodium, serum 143 mmol/L 082-694 8947/01/10 creatinine, serum 1.06 mg/dL 0.55-1.30 alanine aminotransferase (SGPT), serum 42 U/L 12-78 aspartate aminotransferase (SGOT), serum 32 U/L 15-37 calcium, serum 9.3 mg/dL 8.5-10.1 bilirubin, serum, total 0.20 mg/dL 0.00-1.00 cholesterol, serum 177 mg/dL 477-147 0733/01/10 triglyceride, serum, fasting 320 mg/dL 30-200 HDL [...] (calc) < OR=5.0 cholesterol, serum 135 mg/dL 933-521 9628/05/17 HDL cholesterol, serum 41 mg/dL > OR=46 [...] <30 Encounters Code Encounter Date Provider Facility CPT-75761 Level 4 Est. Patient 14:28:34 CDT Tu Landeros MD [facility] CPT-60397 Level 3 Est. Patient 13:33:09 CDT Tu Landeros MD [facility] CPT-71465 Level 4 Est. Patient 14:29:21 CDT Tu Landeros MD [facility] CPT-33422 Level 4 Est. Patient 09:08:17 ACID CUTTER Tu Landeros MD [facility] CPT-19105 Level 4 Est. Patient 14:40:19 CDT Tu Landeros MD [facility] CPT-01546 Level 4 Est. Patient 14:06:04 ACID CUTTER Tu Landeros MD [facility] CPT-70584 Level 3 Est. Patient 14:05:18 ACID CUTTER Tu Landeros MD [facility] CPT-54348 Level 3 Est. Patient 10:06:54 [facility] CUTTER [facility] Level 4 Est. Patient 13:50:18 ACID CUTTER Tu Landeros MD [facility] CPT-60878 Level 3 Est. Patient 10:30:04 CDT Tu Landeros MD [facility] CPT-40263 Level 4 Est. Patient 11:03:38 CDT Tu Landeros MD [facility] CPT-80651 Level 3 Est. Patient 10:20:44 CDT Fab Morales DO [facility] CPT-72824 Level 4 Est. Patient 14:38:57 CDT Tu Landeros MD [facility] CPT-90259 Level 4 Est. Patient 14:27:39 ACID CUTTER Tu Landeros MD [facility] CPT-78466 Level 4 Est. Patient 09:45:25 CDT Tu Landeros MD [facility] CPT-99851 Level 4 Est. Patient 09:05:20 ACID CUTTER Tu Landeros MD [facility] CPT-22943 Level 4 Est. Patient 14:09:06 CDT Tu Landeros MD [facility] CPT-81361 Level 3 Est. Patient 13:36:54 CDT Tu Landeros MD [facility] CPT-63805 Level 3 Est. Patient 08:59:14 CDT Tu Landeros MD [facility] CPT-34228 Level 3 Est. Patient 13:48:35 CDT Fab Morales DO [facility] CPT-96033 Level 4 Est. Patient 10:05:48 CDT Tu Landeros MD [facility] CPT-30531 Level 3 Est. Patient 13:38:42 CDT Marek BANKS [facility] CPT-51003 Level 5 Est. Patient 08:08:39 CDT Jerrica FRANCIS [facility] CPT-25183 Level 4 Est. Patient 14:23:38 CDT Tu Landeros MD [facility] CPT-93447 Level 3 Est. Patient 11:44:04 CDT Tu Landeros MD [facility] CPT-46375 Level 3 Est. Patient 11:03:20 ACID CUTTER Tu Landeros MD [facility] CPT-38720 Level 3 Est. Patient 11:03:14 ACID CUTTER Tu Landeros MD [facility] CPT-02659 Level 3 Est. Patient 12:42:49 CDT Tu Landeros MD [facility] CPT-36325 Level 3 Est. Patient 11:52:06 CDT Tu Landeros MD [facility] CPT-56835 Level 3 Est. Patient 13:58:11 CDT Tu Landeros MD [facility] CPT-14293 Level 3 Est. Patient 17:50:07 CDT Fab Morales DO [facility] CPT-71040 Level 3 Est. Patient 12:06:29 CDT Elvira Cervantes MD [facility] CPT-72741 Level 3 Est. Patient 15:50:32 CDT Tu Landeros MD [facility] CPT-79286 Level 4 Est. Patient 16:08:29 CDT Tu Landeros MD [facility] CPT-55633 Level 3 Est. Patient 16:04:19 CDT Tu Landeros MD [facility] CPT-89895 Level 3 Est. Patient 11:22:30 ACID CUTTER Tu Landeros MD [facility] CPT-04336 Level 4 Est. Patient 16:24:02 ACID CUTTER Tu Landeros MD [facility] CPT-66352 Level 3 Est. Patient 17:21:23 ACID CUTTER Tu Landeros MD [facility] Procedures Code Procedure Name Date Entry Date Standard Description CPT-32360 Shoulder, right, comp min 2V - XRAY USE ONLY 13:50:22 CDT CPT-G0009 Administration of Pneumococcal Vaccine 15:08:26 CDT CPT-14745 Prevnar 13 Intramuscular Suspension 15:08:26 CDT 10/08 CPT-G0439 [facility] Annual Wellness Exam 14:29:22 CDT CPT-13746 Venipuncture Draw Fee 13:15:35 CDT CPT-31473 Magnesium - LAB USE ONLY 11:14:20 ACID CUTTER CPT-13907 Lipid - LAB USE ONLY 11:14:20 ACID CUTTER CPT-43500 HGBA1C - LAB USE ONLY 11:14:20 ACID CUTTER CPT-83175 CMP - LAB USE ONLY 11:14:19 ACID CUTTER CPT-73796 CBC - LAB USE ONLY 11:14:19 ACID CUTTER CPT-45517 Venipuncture Draw Fee 11:14:18 ACID CUTTER CPT-04225 First Vx - Ix admin for Medicare patients 16:46:52 CDT CPT-28713 Fluzone Preservative Free Intramuscular Suspension 16:46 :51 CDT CPT-10329 CBC - LAB USE ONLY 17:14:46 CDT CPT-52444 HGBA1C - LAB USE ONLY 17:14:46 CDT CPT-51158 Venipuncture Draw Fee 17:14:46 CDT CPT-G0438 Initial Annual Wellness Exam 14:13:04 CDT CPT-51077 Breathing Tx 10:06:54 ACID CUTTER CPT-41459 Postop F/U Visit 10:02:45 CDT CPT-LR Lesion Removal 09:02:56 CDT CPT-JTINJ Asp/Joint Injection 15:51:27 ACID CUTTER CPT-OV Office Visit 15:52:02 ACID CUTTER CPT-OV Office Visit 15:45:11 CDT CPT-000 Give Zostavax 14:09:06 CDT CPT-20310 Administration single or combination vaccine inc oral 15 :19:04 CDT CPT-03500 Zoster Vaccine (Zostavax) 15:19:04 CDT CPT-68644 Administration single or combination vaccine inc oral 20 :51:03 CDT CPT-74686 Influenza split virus > age 3 20:51:03 CDT CPT-95195 No Charge Offi Visit 14:52:03 CDT CPT-OV Office Visit 14:57:43 CDT CPT-OV Office Visit 15:22:32 CDT CPT-54786 Administration single or combination vaccine inc oral 11 :33:15 CDT CPT-08025 Influenza split virus > age 3 11:33:15 CDT
--- OUTSIDE RECORDS SUMMARY | 2018-04-25 18:13 | XMS REPORT | Clinical Summary ---
Author Author Admin, SACHI Organization Note Address Unknown Phone Unavailable Allergies, Adverse Reactions, [...] Landeros MD Shoulder pain, right ICD-719.41 Tessa Lanedros MD Medication List Medication Instructions Start Date Stop Date Generic Name NDC Status Provider Patient Instruction DICLOFENAC SODIUM 75 MG ORAL TBEC 1 po BID PRN Pain DICLOFENAC SODIUM 18758984906 Active Tu Landeros MD Active GABAPENTIN 100 MG CAPS 1 po TID GABAPENTIN 34776138049 Active Tu Landeros MD Active DICLOFENAC SODIUM 50 MG ORAL TBEC 1 po BID PRN Pain DICLOFENAC SODIUM 29562357883 No Longer Active Tu Landeros MD Active CYCLOBENZAPRINE HCL 10 MG ORAL TABS 1 po TID PRN Muscle Spasm CYCLOBENZAPRINE HCL 75312812035 No Longer Active Tu Landeros MD Active INVOKANA 100 MG ORAL TABS 1 po qd CANAGLIFLOZIN 49526205033 Active Tu Landeros MD Active GLIPIZIDE 5 MG ORAL TABS 1 po qd GLIPIZIDE 38093655829 No Longer Active Tu Landeros MD Active VENLAFAXINE HCL 75 MG ORAL TABS 1 po BID VENLAFAXINE HCL 77953863228 Active Tu Landeros MD Active GLIMEPIRIDE 1 MG ORAL TABS 1 po qd GLIMEPIRIDE 22519039258 No Longer Active Tu Landeros MD Active TRUE METRIX BLOOD GLUCOSE TEST INVITR STRP Test blood sugar BID Dx: E11.9 GLUCOSE BLOOD 53204134631 Active Tu Landeros MD Active TRUE METRIX AIR GLUCOSE METER W/DEVICE KIT Test blood glucose BID Dx: E11.9 BLOOD GLUCOSE MONITORING SUPPL 13180728336 Active Tu Landeros MD Active TRUETEST TEST INVITR STRP test blood sugar twice daily. DX 250.0 GLUCOSE BLOOD 73655033053 No Longer Active Mirna Stanley LPN Active TRUEDRAW LANCING DEVICE MISC test blood sugar twice daily dx: 250.00 LANCET DEVICES 06648525369 No Longer Active Mirna Stanley LPN Active ENALAPRIL MALEATE 20 MG TABS 2 po qd ENALAPRIL MALEATE 86160457022 Active Tu Landeros MD Active SUPER B COMPLEX/VITAMIN C TABS 1 qd B COMPLEX-C 46833317903 No Longer Active Tu Landeros MD Active ASPIRIN EC 81 MG ORAL TBEC 1 po qd ASPIRIN 68576105308 Active Tu Landeros MD Active GLUCOSAMINE 500 MG TABS 2 po qd GLUCOSAMINE Active Tu Landeros MD Active SIMVASTATIN 40 MG TABS 0.5 po qHS SIMVASTATIN 46503980992 Active Tu Landeros MD Active FISH OIL 1000 MG CAPS 1 po qd OMEGA-3 FATTY ACIDS 79692157658 Active Tu Landeros MD Active METFORMIN HCL 1000 MG TABS 1 po BID METFORMIN HCL 27102938417 Active Tu Landeros MD Active KLOR-CON 10 10 MEQ CR-TABS 2 po qd POTASSIUM CHLORIDE 67154745725 Active Tu Landeros MD Active FUROSEMIDE 40 MG TAB 1 po qd FUROSEMIDE 15149523817 Active Tu Landeros MD Active REQUIP 2 MG ORAL TABS 1 po qHS PRN Restless legs ROPINIROLE HCL 79319573313 Active Tu Landeros MD Active REQUIP 2 MG TABS Take one tablet at bedtime prn ROPINIROLE HCL 10311493501 No Longer Active Tu Landeros MD Active VENTOLIN HFA 108 (90 BASE) MCG/ACT AERS 1-2 puffs every 4 hours if needed for cough/congestion ALBUTEROL SULFATE 62337426339 No Longer Active Ambika Aden APRN Active ZITHROMAX 250 MG TAB 2 po today, then 1 po q days 2-5 AZITHROMYCIN 60327498204 No Longer Active Miranda Suresh APRN Active FLONASE 50 MCG/ACT SUSP 1 spray each nostril twice daily until bottle empty FLUTICASONE PROPIONATE 35694794318 No Longer Active Tu Landeros MD Active COLACE 100 MG CAP 1 po BID PRN Constipation DOCUSATE SODIUM 05573954953 Active Tu Landeros MD Active TRUERESULT BLOOD GLUCOSE W/DEVICE KIT test blood sugar twice daily dx 250.00 BLOOD GLUCOSE MONITORING SUPPL 24880832761 No Longer Active Tu Landeros MD Active TRUEDRAW LANCING DEVICE MISC Test twice a day dx 250.0 LANCET DEVICES 85348194575 No Longer Active Tu Landeros MD Active PREDNISONE 20 MG TAB 2 tablets once daily for 2 days, then 1 tablet once daily for 2 days PREDNISONE 37854435461 No Longer Active Tu Landeros MD Active DICLOFENAC SODIUM 50 MG TBEC 1 tablet by mouth three times a day as needed DICLOFENAC SODIUM 72883433180 No Longer Active Fab Morales DO Active EMBRACE BLOOD GLUCOSE TEST STRP test blood sugar twice daily DX 250.0 2014 GLUCOSE BLOOD 51348300950 No Longer Active Tu Landeros MD Active TRUETEST TEST STRP test blood sugar three times daily dx: 250.00 GLUCOSE BLOOD 20203937169 No Longer Active Suzebianca Nicole RMA Active TRUERESULT BLOOD GLUCOSE W/DEVICE KIT use to test blood sugar tid dx: 250.00 BLOOD GLUCOSE MONITORING SUPPL 93023061515 No Longer Active Suze Corey RMA Active ALIGN 4 MG CAPS 1 tid PROBIOTIC PRODUCT 87205953811 No Longer Active Shaun Sy MD Active CIPRO 500 MG TABS 1 bid x 14 days start 09-28-13 CIPROFLOXACIN HCL 65982173639 No Longer Active Shaun Sy MD Active TRAMADOL HCL 50 MG TABS 1-2 tablets every 6 hours as needed for pain TRAMADOL HCL 91701856367 Active Tu Landeros MD Active HYDROCODONE-ACETAMINOPHEN 5-325 MG TABS 1 tab by mouth every 6 hours as needed for pain HYDROCODONE-ACETAMINOPHEN 61739561738 No Longer Active Tu Landeros MD Active OMEPRAZOLE 20 MG CPDR 1 po q a.m. OMEPRAZOLE 50090475802 Active Fab Morales DO Active GABAPENTIN 100 MG CAPS 1 po bid GABAPENTIN 80099588425 No Longer Active Tu Landeros MD Active B-12 100 MCG TABS Take one by mouth daily CYANOCOBALAMIN 23294597347 No Longer Active Tu Landeros MD Active BACTRIM DS 800-160 MG TABS 1 bid x 14 day start 09-28-13 SULFAMETHOXAZOLE-TRIMETHOPRIM 22313227921 No Longer Active Tu Landeros MD Active CARVEDILOL 12.5 MG TABS 1 po BID CARVEDILOL 29792476816 Active Lesli Kellogg APRN Active TRILIPIX 135 MG CPDR 1 q hs CHOLINE FENOFIBRATE 03206299676 Active Tu Landeros MD Active FENOFIBRATE 145 MG TABS 1 po qd FENOFIBRATE 40050489066 No Longer Active JASPREET Perez Active OMEPRAZOLE 20 MG TBEC 1 PO 30 MIN BEFORE 1ST MEAL OMEPRAZOLE 30674922180 No Longer Active JASPREET Perez Active SIMVASTATIN 40 MG TABS Take one by mouth daily SIMVASTATIN 32429509473 No Longer Active JASPREET Perez Active VENLAFAXINE HCL 75 MG TABS 1 po BID VENLAFAXINE HCL 20178321167 No Longer Active JASPREET Perez Active CIPRO 500 MG TAB 1 tablet by mouth twice daily CIPROFLOXACIN HCL 50158474991 No Longer Active Tu Landeros MD Active VENLAFAXINE HCL 37.5 MG TABS 1 po BID VENLAFAXINE HCL 95194702001 No Longer Active Suzebianca VOGEL Active LAMISIL 250 MG TAB 1 po qd TERBINAFINE HCL 66936796443 No Longer Active Tu Landeros MD Active LORTAB 5 5-500 MG TABS 1/2 to 1 tablet by mouth every 4 hours as needed for pain HYDROCODONE-ACETAMINOPHEN 87085699139 No Longer Active Tu Landeros MD Active HYDROCODONE-ACETAMINOPHEN 5-500 MG TABS take one po Q 4-6 hours prn HYDROCODONE-ACETAMINOPHEN 42364478086 No Longer Active Tu Landeros MD Active BACTRIM DS 800-160 MG TABS 1 po BID x 7 days SULFAMETHOXAZOLE-TRIMETHOPRIM 98499084504 No Longer Active Tu Landeros MD Active VENLAFAXINE HCL 75 MG TABS 1 po BID VENLAFAXINE HCL 49335009298 No Longer Active Elvira Cervantes MD PhD Active TRAMADOL HCL 50 MG TABS 1 tablets every 6 hours as needed for pain TRAMADOL HCL 93249744033 No Longer Active Tu Landeros MD Active ACCU-CHEK FASTCLIX LANCETS MISC Use to check bloodsugar three times daily as needed LANCETS 20079581594 No Longer Active Tu Landeros MD Active ACCU-CHEK KEYONA PLUS STRP Use for testing bloodsugars three times daily as needed GLUCOSE BLOOD 91906308316 No Longer Active Tu Landeros MD Active ACCU-CHEK KEYONA PLUS W/DEVICE KIT Use for testing bloodsugars three times daily as needed BLOOD GLUCOSE MONITORING SUPPL 83059135130 No Longer Active Tu Landeros MD Active SPIRONOLACTONE 25 MG TAB 0.5 tablet by mouth daily SPIRONOLACTONE 50742491896 No Longer Active Tu Landeros MD Active ALPRAZOLAM 0.5 MG TABS 1 tab every 6hrs as needed ALPRAZOLAM 54986848576 No Longer Active Tu Landeros MD Active AUGMENTIN 875-125 MG TAB 1 tab by mouth twice daily with food AMOXICILLIN-POT CLAVULANATE 15190180982 No Longer Active Tu Landeros MD Active PREDNISONE 20 MG TAB 2 tabs daily for 3 days, 1 tab daily for 3 days, 1/2 tab daily for 2 days PREDNISONE 37771602014 No Longer Active Tu Landeros MD Active XANAX 0.5 MG TABS 1 tablet every 6 hrs prn ALPRAZOLAM 57196797768 No Longer Active Tu Landeros MD Active PREDNISONE 20 MG TAB 2 tabs daily for 3 days, 1 tab daily for 3 days, 1/2 tab daily for 2 days PREDNISONE 18335130301 No Longer Active Tu Landeros MD Active TRIAMCINOLONE ACETONIDE 0.1 % OINT Apply to affected areas TID for up to 2 weeks TRIAMCINOLONE ACETONIDE 77816163518 No Longer Active Tu Landeros MD Active LORTAB 5 5-500 MG TABS 1/2 to 1 tablet by mouth every 4 hours as needed for pain HYDROCODONE-ACETAMINOPHEN 21759521154 No Longer Active Tu Landeros MD Active MULTIVITAMINS TABS Take one by mouth daily MULTIPLE VITAMIN 29464514865 No Longer Active Tu Landeros MD Active MELATONIN 5 MG TABS Take one by mouth daily MELATONIN 82987928003 No Longer Active Tu Landeros MD Active SOMA 350 MG TAB 1 po q 6 hours prn spasm CARISOPRODOL 19760692786 No Longer Active Tu Landeros MD Active MECLIZINE HCL 25 MG CHEW TAB 1 four times a day as needed for dizziness 08/05 MECLIZINE HCL 45249836257 No Longer Active Fab Morales DO Active ANGEL BREEZE 2 TEST DISK test tid prn GLUCOSE BLOOD 35641239070 No Longer Active Negra Scott RN Active REGLAN 10 MG TAB 1 po TID PRN Nausea METOCLOPRAMIDE HCL 33479624280 No Longer Active Tu Landeros MD Active METFORMIN HCL 500 MG TABS 1 PO BID METFORMIN HCL 41475464177 No Longer Active Tu Landeros MD Active AMBIEN 10 MG TAB 1 tab by mouth at bedtime as needed for sleep ZOLPIDEM TARTRATE 09630802493 No Longer Active Tu Landeros MD Active FLUOXETINE HCL 40 MG CAPS 1 po q day FLUOXETINE HCL 59346271175 No Longer Active Mayra Terry Active TRILIPIX 135 MG CPDR 1 po qd CHOLINE FENOFIBRATE 10304348112 No Longer Active Tu Landeros MD Active AMBIEN 10 MG TAB 1 tab by mouth at bedtime as needed for sleep AMBIEN 10 MG TAB 583769 ZOLPIDEM TARTRATE Inactive METFORMIN HCL 500 MG TABS 1 PO BID METFORMIN HCL 500 MG TABS 564252 METFORMIN HCL Inactive REGLAN 10 MG TAB 1 po TID PRN Nausea REGLAN 10 MG TAB 313753 METOCLOPRAMIDE HCL Inactive MECLIZINE HCL 25 MG CHEW TAB 1 four times a day as needed for dizziness 08/05 MECLIZINE HCL 25 MG CHEW TAB 808565 MECLIZINE HCL Inactive SOMA 350 MG TAB 1 po q 6 hours prn spasm SOMA 350 MG TAB 817713 CARISOPRODOL Inactive MELATONIN 5 MG TABS Take one by mouth daily MELATONIN 5 MG TABS 365726 MELATONIN Inactive MULTIVITAMINS TABS Take one by mouth daily MULTIVITAMINS TABS MULTIPLE VITAMIN Inactive LORTAB 5 5-500 MG TABS 1/2 to 1 tablet by mouth every 4 hours as needed for pain LORTAB 5 5-500 MG TABS 413642 HYDROCODONE- ACETAMINOPHEN Inactive XANAX 0.5 MG TABS 1 tablet every 6 hrs prn XANAX 0.5 MG TABS 953056 ALPRAZOLAM Inactive AUGMENTIN 875-125 MG TAB 1 tab by mouth twice daily with food AUGMENTIN 875-125 MG TAB 004608 AMOXICILLIN-POT CLAVULANATE Inactive ALPRAZOLAM 0.5 MG TABS 1 tab every 6hrs as needed ALPRAZOLAM 0.5 MG TABS 421296 ALPRAZOLAM Inactive SPIRONOLACTONE 25 MG TAB 0.5 tablet by mouth daily SPIRONOLACTONE 25 MG TAB 778381 SPIRONOLACTONE Inactive ACCU-CHEK KEYONA PLUS W/DEVICE KIT Use for testing bloodsugars three times daily as needed ACCU-CHEK KEYONA PLUS W/DEVICE KIT BLOOD GLUCOSE MONITORING SUPPL Inactive ACCU-CHEK KEYONA PLUS STRP Use for testing bloodsugars three times daily as needed ACCU-CHEK KEYONA PLUS STRP GLUCOSE BLOOD Inactive ACCU-CHEK FASTCLIX LANCETS MISC Use to check bloodsugar three times daily as needed ACCU-CHEK FASTCLIX LANCETS MISC 31728484826 LANCETS Inactive TRAMADOL HCL 50 MG TABS 1 tablets every 6 hours as needed for pain TRAMADOL HCL 50 MG TABS 162453 TRAMADOL HCL Inactive VENLAFAXINE HCL 75 MG TABS 1 po BID VENLAFAXINE HCL 75 MG TABS 622482 VENLAFAXINE HCL Inactive HYDROCODONE-ACETAMINOPHEN 5-500 MG TABS take one po Q 4-6 hours prn HYDROCODONE-ACETAMINOPHEN 5-500 MG TABS 075881 HYDROCODONE- ACETAMINOPHEN Inactive LORTAB 5 5-500 MG TABS 1/2 to 1 tablet by mouth every 4 hours as needed for pain LORTAB 5 5-500 MG TABS 314177 HYDROCODONE- ACETAMINOPHEN Inactive LAMISIL 250 MG TAB 1 po qd LAMISIL 250 MG TAB 401213 TERBINAFINE HCL Inactive VENLAFAXINE HCL 37.5 MG TABS 1 po BID VENLAFAXINE HCL 37.5 MG TABS 711133 VENLAFAXINE HCL Inactive CIPRO 500 MG TAB 1 tablet by mouth twice daily CIPRO 500 MG TAB 164164 CIPROFLOXACIN HCL Inactive VENLAFAXINE HCL 75 MG TABS 1 po BID VENLAFAXINE HCL 75 MG TABS 384536 VENLAFAXINE HCL Inactive SIMVASTATIN 40 MG TABS Take one by mouth daily SIMVASTATIN 40 MG TABS 577720 SIMVASTATIN Inactive OMEPRAZOLE 20 MG TBEC 1 PO 30 MIN BEFORE 1ST MEAL OMEPRAZOLE 20 MG TBEC 461322 OMEPRAZOLE Inactive FENOFIBRATE 145 MG TABS 1 po qd FENOFIBRATE 145 MG TABS 527642 FENOFIBRATE Inactive BACTRIM DS 800-160 MG TABS 1 bid x 14 day start 09-28-13 BACTRIM DS 800-160 MG TABS 399753 SULFAMETHOXAZOLE-TRIMETHOPRIM Inactive B-12 100 MCG TABS Take one by mouth daily B-12 100 MCG TABS CYANOCOBALAMIN Inactive GABAPENTIN 100 MG CAPS 1 po bid GABAPENTIN 100 MG CAPS 444167 GABAPENTIN Inactive HYDROCODONE-ACETAMINOPHEN 5-325 MG TABS 1 tab by mouth every 6 hours as needed for pain HYDROCODONE-ACETAMINOPHEN 5-325 MG TABS 764177 HYDROCODONE-ACETAMINOPHEN Inactive CIPRO 500 MG TABS 1 bid x 14 days start 09-28-13 CIPRO 500 MG TABS 989524 CIPROFLOXACIN HCL Inactive ALIGN 4 MG CAPS [...] as needed DICLOFENAC SODIUM 50 MG TBEC 146874 DICLOFENAC SODIUM Inactive PREDNISONE 20 MG TAB 2 tablets once daily for 2 days, then 1 tablet once daily for 2 days PREDNISONE 20 MG TAB 370824 PREDNISONE Inactive TRUEDRAW LANCING DEVICE MISC Test twice a day dx 250.0 TRUEDRAW LANCING DEVICE MISC LANCET DEVICES Inactive TRUERESULT BLOOD GLUCOSE W/DEVICE KIT test blood sugar twice daily dx 250.00 TRUERESULT BLOOD GLUCOSE W/DEVICE KIT BLOOD GLUCOSE MONITORING SUPPL Inactive FLONASE 50 MCG/ACT SUSP 1 spray each nostril twice daily until bottle empty FLONASE 50 MCG/ACT SUSP 5906118 FLUTICASONE PROPIONATE Inactive VENTOLIN HFA 108 (90 BASE) MCG/ACT AERS 1-2 puffs every 4 hours if needed for cough/congestion VENTOLIN HFA 108 (90 BASE) MCG/ACT AERS ALBUTEROL SULFATE Inactive REQUIP 2 MG TABS Take one tablet at bedtime prn REQUIP 2 MG TABS 540709 ROPINIROLE HCL Inactive SUPER B COMPLEX/VITAMIN C TABS 1 qd SUPER B COMPLEX/ VITAMIN C TABS 60264463016 B COMPLEX-C Inactive TRUEDRAW LANCING DEVICE MISC test blood sugar twice daily dx: 250.00 TRUEDRAW LANCING DEVICE MISC LANCET DEVICES Inactive TRUETEST TEST INVITR STRP test blood sugar twice daily. DX 250.0 TRUETEST TEST INVITR STRP GLUCOSE BLOOD Inactive CYCLOBENZAPRINE HCL 10 MG ORAL TABS 1 po TID PRN Muscle Spasm CYCLOBENZAPRINE HCL 10 MG ORAL TABS 159388 CYCLOBENZAPRINE HCL Inactive DICLOFENAC SODIUM 50 MG ORAL TBEC 1 po BID PRN Pain DICLOFENAC SODIUM 50 MG ORAL TBEC 537952 DICLOFENAC SODIUM Inactive TRIAMCINOLONE ACETONIDE 0.1 % OINT Apply to affected areas TID for up to 2 weeks TRIAMCINOLONE ACETONIDE 0.1 % OINT 0017056 TRIAMCINOLONE ACETONIDE Inactive PREDNISONE 20 MG TAB 2 tabs daily for 3 days, 1 tab daily for 3 days, 1/2 tab daily for 2 days PREDNISONE 20 MG TAB 800912 PREDNISONE Inactive PREDNISONE 20 MG TAB 2 tabs daily for 3 days, 1 tab daily for 3 days, 1/2 tab daily for 2 days PREDNISONE 20 MG TAB 330278 PREDNISONE Inactive BACTRIM DS 800-160 MG TABS 1 po BID x 7 days BACTRIM DS 800-160 MG TABS 393256 SULFAMETHOXAZOLE-TRIMETHOPRIM Inactive ZITHROMAX 250 MG TAB 2 po today, then 1 po q days 2-5 ZITHROMAX 250 MG TAB 474090 AZITHROMYCIN Inactive Advance Directives Directive Description Start Date DISCUSSED WITH PATIENT -- NO DECISION MADE Immunizations Vaccine Administration Date Value Standard Description Seasonal influenza vaccine, injectable, containing preservative, for > 3 years old (Afluria, FluLaval, Fluzone, Fluvirin, Fluarix, Agriflu(>=18 yo)) Fluzone (>3 yrs.) [UIV195] Influenza, seasonal, injectable influenza immunization (Flu Vax) has been administered 02/22/2012 influenza virus vaccine, unspecified formulation Seasonal influenza vaccine, injectable, containing preservative, for > 3 years old (Afluria, FluLaval, Fluzone, Fluvirin, Fluarix, Agriflu(>=18 yo)) Fluzone (>3 yrs.) [HVU069] Influenza, seasonal, injectable Vital Signs Date Name [...] Magnesium - Chemistry sodium, serum 143 mmol/L 543-741 6596/01/10 carbon dioxide, venous blood 28.0 mmol/L 21.0-32.0 potassium, serum 4.5 mmol/L 3.5-5.2 chloride, serum 104 mmol/L 98-107 blood glucose 158 mg/dL 65-110 urea nitrogen, blood 23 mg/dL 7-18 creatinine, serum 1.06 mg/dL 0.55-1.30 alanine aminotransferase (SGPT), serum 42 U/L 12-78 aspartate aminotransferase (SGOT), serum 32 U/L 15-37 calcium, serum 9.3 mg/dL 8.5-10.1 bilirubin, serum, total 0.20 mg/dL 0.00-1.00 cholesterol, serum 177 mg/dL 051-349 3597/01/10 triglyceride, serum, fasting 320 mg/dL 30-200 HDL cholesterol, serum 46 mg/dL 32-96 LDL cholesterol, serum 67 mg/dL 0-130 Lab Report: COMPREHENSIVE METABOLIC PANEL, LIPID PANEL, HEMOGLOBIN A1c - Chemistry cholesterol, serum 135 mg/dL 170-677 0409/05/17 HDL cholesterol, serum 41 mg/dL > OR=46 [...] <30 Encounters Code Encounter Date Provider Facility CPT-24467 Level 3 Est. Patient 14:20:36 CDT Tu Landeros MD [facility] CPT-02930 Level 4 Est. Patient 14:28:34 CDT Tu Landeros MD [facility] CPT-40848 Level 3 Est. Patient 13:33:09 CDT Tu Landeros MD [facility] CPT-22420 Level 4 Est. Patient 14:29:21 CDT Tu Landeros MD [facility] CPT-45907 Level 4 Est. Patient 09:08:17 WALL MAN Tu Landeros MD [facility] CPT-48396 Level 4 Est. Patient 14:40:19 CDT Tu Landeros MD [facility] CPT-29756 Level 4 Est. Patient 14:06:04 WALL MAN Tu Landeros MD [facility] CPT-22526 Level 3 Est. Patient 14:05:18 WALL MAN Tu Landeros MD [facility] CPT-19306 Level 3 Est. Patient 10:06:54 WALL MAN Miranda Suresh APRN [facility] CPT-82909 Level 4 Est. Patient 13:50:18 WALL MAN Tu Landeros MD [facility] CPT-96633 Level 3 Est. Patient 10:30:04 CDT uT Landeros MD [facility] CPT-50087 Level 4 Est. Patient 11:03:38 CDT Tu Landeros MD [facility] CPT-96322 Level 3 Est. Patient 10:20:44 CDT Fab Morales DO [facility] CPT-38052 Level 4 Est. Patient 14:38:57 CDT Tu Landeros MD [facility] CPT-34559 Level 4 Est. Patient 14:27:39 WALL MAN Tu Landeros MD [facility] CPT-14950 Level 4 Est. Patient 09:45:25 CDT Tu Landeros MD [facility] CPT-82448 Level 4 Est. Patient 09:05:20 WALL MAN Tu Landeros MD [facility] CPT-81635 Level 4 Est. Patient 14:09:06 CDT Tu Landeros MD [facility] CPT-68721 Level 3 Est. Patient 13:36:54 CDT Tu Landeros MD [facility] CPT-25006 Level 3 Est. Patient 08:59:14 CDT Tu Landeros MD [facility] CPT-01707 Level 3 Est. Patient 13:48:35 CDT Fab Morales DO [facility] CPT-57774 Level 4 Est. Patient 10:05:48 CDT Tu Landeros MD [facility] CPT-60551 Level 3 Est. Patient 13:38:42 CDT Marek BANKS [facility] CPT-00220 Level 5 Est. Patient 08:08:39 CDT Jerrica FRANCIS [facility] CPT-56612 Level 4 Est. Patient 14:23:38 CDT Tu Landeros MD [facility] CPT-19343 Level 3 Est. Patient 11:44:04 CDT Tu Landeros MD [facility] CPT-60093 Level 3 Est. Patient 11:03:20 WALL MAN Tu Landeros MD [facility] CPT-83276 Level 3 Est. Patient 11:03:14 WALL MAN Tu Landeros MD [facility] CPT-05396 Level 3 Est. Patient 12:42:49 CDT Tu Landeros MD [facility] CPT-92934 Level 3 Est. Patient 11:52:06 CDT Tu Landeros MD [facility] CPT-89598 Level 3 Est. Patient 13:58:11 CDT Tu Landeros MD [facility] CPT-04673 Level 3 Est. Patient 17:50:07 CDT Fab Morales DO [facility] CPT-94325 Level 3 Est. Patient 12:06:29 CDT Elvira Cervantes MD [facility] CPT-68723 Level 3 Est. Patient 15:50:32 CDT Tu Landeros MD [facility] CPT-39419 Level 4 Est. Patient 16:08:29 CDT Tu Landeros MD [facility] CPT-62787 Level 3 Est. Patient 16:04:19 CDT Tu Landeros MD [facility] CPT-76120 Level 3 Est. Patient 11:22:30 WALL MAN Tu Landeros MD [facility] CPT-42518 Level 4 Est. Patient 16:24:02 WALL MAN Tu Landeros MD [facility] CPT-07577 Level 3 Est. Patient 17:21:23 WALL MAN Tu Landeros MD [facility] Procedures Code Procedure Name Date Entry Date Standard Description CPT-35348 Shoulder, right, comp min 2V - XRAY USE ONLY 13:50:22 CDT CPT-G0009 Administration of Pneumococcal Vaccine 15:08:26 CDT CPT-41081 Prevnar 13 Intramuscular Suspension 15:08:26 CDT 10/08 CPT-G0439 [facility] Annual Wellness Exam 14:29:22 CDT CPT-62111 Venipuncture Draw Fee 13:15:35 CDT CPT-77874 Magnesium - LAB USE ONLY 11:14:20 WALL MAN CPT-60367 Lipid - LAB USE ONLY 11:14:20 WALL MAN CPT-61335 HGBA1C - LAB USE ONLY 11:14:20 WALL MAN CPT-33522 CMP - LAB USE ONLY 11:14:19 WALL MAN CPT-92889 CBC - LAB USE ONLY 11:14:19 WALL MAN CPT-08494 Venipuncture Draw Fee 11:14:18 WALL MAN CPT-61722 First Vx - Ix admin for Medicare patients 16:46:52 CDT CPT-48885 Fluzone Preservative Free Intramuscular Suspension 16:46 :51 CDT CPT-43252 CBC - LAB USE ONLY 17:14:46 CDT CPT-94094 HGBA1C - LAB USE ONLY 17:14:46 CDT CPT-05498 Venipuncture Draw Fee 17:14:46 CDT CPT-G0438 Initial Annual Wellness Exam 14:13:04 CDT CPT-54984 Breathing Tx 10:06:54 WALL MAN CPT-61403 Postop F/U Visit 10:02:45 CDT CPT-LR Lesion Removal 09:02:56 CDT CPT-JTINJ Asp/Joint Injection 15:51:27 WALL MAN CPT-OV Office Visit 15:52:02 WALL MAN CPT-OV Office Visit 15:45:11 CDT CPT-000 Give Zostavax 14:09:06 CDT CPT-52942 Administration single or combination vaccine inc oral 15 :19:04 CDT CPT-73210 Zoster Vaccine (Zostavax) 15:19:04 CDT CPT-26416 Administration single or combination vaccine inc oral 20 :51:03 CDT CPT-19498 Influenza split virus > age 3 20:51:03 CDT CPT-09128 No Charge Offi Visit 14:52:03 CDT CPT-OV Office Visit 14:57:43 CDT CPT-OV Office Visit 15:22:32 CDT CPT-00018 Administration single or combination vaccine inc oral 11 :33:15 CDT CPT-14641 Influenza split virus > age 3 11:33:15 CDT
--- OUTSIDE RECORDS SUMMARY | 2018-04-25 18:15 | XMS REPORT | Clinical Summary ---
Author Author Admin, SACHI Organization [employer] Address Unknown Phone Unavailable Allergies, Adverse Reactions, [...] 1 po BID PRN Pain DICLOFENAC SODIUM 10834694837 Active Tu Landeros MD Active GABAPENTIN 100 MG CAPS 1 po TID GABAPENTIN 75998619198 Active Tu Landeros MD Active DICLOFENAC SODIUM 50 MG ORAL TBEC 1 po BID PRN Pain DICLOFENAC SODIUM 72703839171 No Longer Active Tu Landeros MD Active CYCLOBENZAPRINE HCL 10 MG ORAL TABS 1 po TID PRN Muscle Spasm CYCLOBENZAPRINE HCL 98107146237 No Longer Active Tu Landeros MD Active INVOKANA 100 MG ORAL TABS 1 po qd CANAGLIFLOZIN 89611767044 Active Tu Landeros MD Active GLIPIZIDE 5 MG ORAL TABS 1 po qd GLIPIZIDE 57666625409 No Longer Active Tu Landeros MD Active VENLAFAXINE HCL 75 MG ORAL TABS 1 po BID VENLAFAXINE HCL 30285152087 Active Tu Landeros MD Active GLIMEPIRIDE 1 MG ORAL TABS 1 po qd GLIMEPIRIDE 87443821714 No Longer Active Tu Landeros MD Active TRUE METRIX BLOOD GLUCOSE TEST INVITR STRP Test blood sugar BID Dx: E11.9 GLUCOSE BLOOD 27656529248 Active Tu Landeros MD Active TRUE METRIX AIR GLUCOSE METER W/DEVICE KIT Test blood glucose BID Dx: E11.9 BLOOD GLUCOSE MONITORING SUPPL 32691154886 Active Tu Landeros MD Active TRUETEST TEST INVITR STRP test blood sugar twice daily. DX 250.0 GLUCOSE BLOOD 52758649860 No Longer Active Mirna Stanley LPN Active TRUEDRAW LANCING DEVICE MISC test blood sugar twice daily dx: 250.00 LANCET DEVICES 74813947253 No Longer Active Mirna Stanley LPN Active ENALAPRIL MALEATE 20 MG TABS 2 po qd ENALAPRIL MALEATE 74368838145 Active Lesli Kellogg APRN Active SUPER B COMPLEX/VITAMIN C TABS 1 qd B COMPLEX-C 09208966723 No Longer Active Tu Landeros MD Active ASPIRIN EC 81 MG ORAL TBEC 1 po qd ASPIRIN 48033189811 Active Tu Landeros MD Active GLUCOSAMINE 500 MG TABS 2 po qd GLUCOSAMINE Active Tu Landeros MD Active SIMVASTATIN 40 MG TABS 0.5 po qHS SIMVASTATIN 44256165186 Active Tu Landeros MD Active FISH OIL 1000 MG CAPS 1 po qd OMEGA-3 FATTY ACIDS 59237461689 Active Tu Landeros MD Active METFORMIN HCL 1000 MG TABS 1 po BID METFORMIN HCL 50585664441 Active Tu Landeros MD Active KLOR-CON 10 10 MEQ CR-TABS 2 po qd POTASSIUM CHLORIDE 61268057732 Active Tu Landeros MD Active FUROSEMIDE 40 MG TAB 1 po qd FUROSEMIDE 05123819911 Active Tu Landeros MD Active REQUIP 2 MG ORAL TABS 1 po qHS PRN Restless legs ROPINIROLE HCL 53945759537 Active Tu Landeros MD Active REQUIP 2 MG TABS Take one tablet at bedtime prn ROPINIROLE HCL 46406919356 No Longer Active Tu Landeros MD Active VENTOLIN HFA 108 (90 BASE) MCG/ACT AERS 1-2 puffs every 4 hours if needed for cough/congestion ALBUTEROL SULFATE 51116434633 No Longer Active Ambika Aden APRN Active ZITHROMAX 250 MG TAB 2 po today, then 1 po q days 2-5 AZITHROMYCIN 08878581635 No Longer Active Miranda Suresh APRN Active FLONASE 50 MCG/ACT SUSP 1 spray each nostril twice daily until bottle empty FLUTICASONE PROPIONATE 52033636357 No Longer Active Tu Landeros MD Active COLACE 100 MG CAP 1 po BID PRN Constipation DOCUSATE SODIUM 07932961530 Active Tu Landeros MD Active TRUERESULT BLOOD GLUCOSE W/DEVICE KIT test blood sugar twice daily dx 250.00 BLOOD GLUCOSE MONITORING SUPPL 82685863998 No Longer Active Tu Landeros MD Active TRUEDRAW LANCING DEVICE MISC Test twice a day dx 250.0 LANCET DEVICES 66792390983 No Longer Active Tu Landeros MD Active PREDNISONE 20 MG TAB 2 tablets once daily for 2 days, then 1 tablet once daily for 2 days PREDNISONE 84992337141 No Longer Active Tu Landeros MD Active DICLOFENAC SODIUM 50 MG TBEC 1 tablet by mouth three times a day as needed DICLOFENAC SODIUM 55251419653 No Longer Active Fab Morales DO Active EMBRACE BLOOD GLUCOSE TEST STRP test blood sugar twice daily DX 250.0 2014 GLUCOSE BLOOD 18287852442 No Longer Active Tu Landeros MD Active TRUETEST TEST STRP test blood sugar three times daily dx: 250.00 GLUCOSE BLOOD 91056138258 No Longer Active Suze Nicole RMMahendra Active TRUERESULT BLOOD GLUCOSE W/DEVICE KIT use to test blood sugar tid dx: 250.00 BLOOD GLUCOSE MONITORING SUPPL 75932046694 No Longer Active Suze Corey RMA Active ALIGN 4 MG CAPS 1 tid PROBIOTIC PRODUCT 97427640268 No Longer Active Shaun Sy MD Active CIPRO 500 MG TABS 1 bid x 14 days start 09-28-13 CIPROFLOXACIN HCL 19467707736 No Longer Active Shaun Sy MD Active TRAMADOL HCL 50 MG TABS 1-2 tablets every 6 hours as needed for pain TRAMADOL HCL 40515212096 Active Tu Landeros MD Active HYDROCODONE-ACETAMINOPHEN 5-325 MG TABS 1 tab by mouth every 6 hours as needed for pain HYDROCODONE-ACETAMINOPHEN 66472362248 No Longer Active Tu Landeros MD Active OMEPRAZOLE 20 MG CPDR 1 po q a.m. OMEPRAZOLE 98608170057 Active Fab Morales DO Active GABAPENTIN 100 MG CAPS 1 po bid GABAPENTIN 77003938390 No Longer Active Tu Landeros MD Active B-12 100 MCG TABS Take one by mouth daily CYANOCOBALAMIN 96083592419 No Longer Active Tu Landeros MD Active BACTRIM DS 800-160 MG TABS 1 bid x 14 day start 09-28-13 SULFAMETHOXAZOLE-TRIMETHOPRIM 27284608444 No Longer Active Tu Landeros MD Active CARVEDILOL 12.5 MG TABS 1 po BID CARVEDILOL 01807805519 Active Lesli eKllogg APRN Active TRILIPIX 135 MG CPDR 1 q hs CHOLINE FENOFIBRATE 36031697380 Active Tu Landeros MD Active FENOFIBRATE 145 MG TABS 1 po qd FENOFIBRATE 55355611067 No Longer Active JASPREET Perez Active OMEPRAZOLE 20 MG TBEC 1 PO 30 MIN BEFORE 1ST MEAL OMEPRAZOLE 94637770379 No Longer Active JASPREET Perez Active SIMVASTATIN 40 MG TABS Take one by mouth daily SIMVASTATIN 05169862800 No Longer Active JASPREET Perez Active VENLAFAXINE HCL 75 MG TABS 1 po BID VENLAFAXINE HCL 50721829609 No Longer Active JASPREET Perez Active CIPRO 500 MG TAB 1 tablet by mouth twice daily CIPROFLOXACIN HCL 01688677943 No Longer Active Tu Landeros MD Active VENLAFAXINE HCL 37.5 MG TABS 1 po BID VENLAFAXINE HCL 83106023484 No Longer Active Suzebianca Nicole RMA Active LAMISIL 250 MG TAB 1 po qd TERBINAFINE HCL 75294903504 No Longer Active Tu Landeros MD Active LORTAB 5 5-500 MG TABS 1/2 to 1 tablet by mouth every 4 hours as needed for pain HYDROCODONE-ACETAMINOPHEN 45274673763 No Longer Active Tu Landeros MD Active HYDROCODONE-ACETAMINOPHEN 5-500 MG TABS take one po Q 4-6 hours prn HYDROCODONE-ACETAMINOPHEN 98725000577 No Longer Active Tu Landeros MD Active BACTRIM DS 800-160 MG TABS 1 po BID x 7 days SULFAMETHOXAZOLE-TRIMETHOPRIM 55429002212 No Longer Active Tu Landeros MD Active VENLAFAXINE HCL 75 MG TABS 1 po BID VENLAFAXINE HCL 68257805828 No Longer Active Elvira Cervantes MD PhD Active TRAMADOL HCL 50 MG TABS 1 tablets every 6 hours as needed for pain TRAMADOL HCL 23451567485 No Longer Active Tu Landeros MD Active ACCU-CHEK FASTCLIX LANCETS MISC Use to check bloodsugar three times daily as needed LANCETS 02203229878 No Longer Active Tu Landeros MD Active ACCU-CHEK KEYONA PLUS STRP Use for testing bloodsugars three times daily as needed GLUCOSE BLOOD 86211944758 No Longer Active Tu Landeros MD Active ACCU-CHEK KEYONA PLUS W/DEVICE KIT Use for testing bloodsugars three times daily as needed BLOOD GLUCOSE MONITORING SUPPL 77792347535 No Longer Active Tu Landeros MD Active SPIRONOLACTONE 25 MG TAB 0.5 tablet by mouth daily SPIRONOLACTONE 77391180568 No Longer Active Tu Landeros MD Active ALPRAZOLAM 0.5 MG TABS 1 tab every 6hrs as needed ALPRAZOLAM 71486807527 No Longer Active Tu Landeros MD Active AUGMENTIN 875-125 MG TAB 1 tab by mouth twice daily with food AMOXICILLIN-POT CLAVULANATE 96538400207 No Longer Active Tu Landeros MD Active PREDNISONE 20 MG TAB 2 tabs daily for 3 days, 1 tab daily for 3 days, 1/2 tab daily for 2 days PREDNISONE 34461857336 No Longer Active Tu Landeros MD Active XANAX 0.5 MG TABS 1 tablet every 6 hrs prn ALPRAZOLAM 48282979024 No Longer Active Tu Landeros MD Active PREDNISONE 20 MG TAB 2 tabs daily for 3 days, 1 tab daily for 3 days, 1/2 tab daily for 2 days PREDNISONE 93752117434 No Longer Active Tu Landeros MD Active TRIAMCINOLONE ACETONIDE 0.1 % OINT Apply to affected areas TID for up to 2 weeks TRIAMCINOLONE ACETONIDE 28950923666 No Longer Active Tu Landeros MD Active LORTAB 5 5-500 MG TABS 1/2 to 1 tablet by mouth every 4 hours as needed for pain HYDROCODONE-ACETAMINOPHEN 20162040205 No Longer Active Tu Landeros MD Active MULTIVITAMINS TABS Take one by mouth daily MULTIPLE VITAMIN 20892414660 No Longer Active Tu Landeros MD Active MELATONIN 5 MG TABS Take one by mouth daily MELATONIN 72333457637 No Longer Active Tu Landeros MD Active SOMA 350 MG TAB 1 po q 6 hours prn spasm CARISOPRODOL 12069573664 No Longer Active Tu Landeros MD Active MECLIZINE HCL 25 MG CHEW TAB 1 four times a day as needed for dizziness 08/05 MECLIZINE HCL 20949917881 No Longer Active Fab Morales DO Active ANGEL BREEZE 2 TEST DISK test tid prn GLUCOSE BLOOD 19896302600 No Longer Active Negra Scott RN Active REGLAN 10 MG TAB 1 po TID PRN [place] METOCLOPRAMIDE HCL 13612148111 No Longer Active Tu Landeros MD Active METFORMIN HCL 500 MG TABS 1 PO BID METFORMIN HCL 95676701999 No Longer Active Tu Landeros MD Active AMBIEN 10 MG TAB 1 tab by mouth at bedtime as needed for sleep ZOLPIDEM TARTRATE 72149591142 No Longer Active Tu Landeros MD Active FLUOXETINE HCL 40 MG CAPS 1 po q day FLUOXETINE HCL 22879031659 No Longer Active Mayra Terry Active TRILIPIX 135 MG CPDR 1 po qd CHOLINE FENOFIBRATE 19004425350 No Longer Active Tu Landeros MD Active AMBIEN 10 MG TAB 1 tab by mouth at bedtime as needed for sleep AMBIEN 10 MG TAB 681808 ZOLPIDEM TARTRATE Inactive METFORMIN HCL 500 MG TABS 1 PO BID METFORMIN HCL 500 MG TABS 281221 METFORMIN HCL Inactive REGLAN 10 MG TAB 1 po TID PRN Nausea REGLAN 10 MG TAB 920115 METOCLOPRAMIDE HCL Inactive MECLIZINE HCL 25 MG CHEW TAB 1 four times a day as needed for dizziness 08/05 MECLIZINE HCL 25 MG CHEW TAB 926617 MECLIZINE HCL Inactive SOMA 350 MG TAB 1 po q 6 hours prn spasm SOMA 350 MG TAB 133139 CARISOPRODOL Inactive MELATONIN 5 MG TABS Take one by mouth daily MELATONIN 5 MG TABS 373876 MELATONIN Inactive MULTIVITAMINS TABS Take one by mouth daily MULTIVITAMINS TABS MULTIPLE VITAMIN Inactive LORTAB 5 5-500 MG TABS 1/2 to 1 tablet by mouth every 4 hours as needed for pain LORTAB 5 5-500 MG TABS 173421 HYDROCODONE- ACETAMINOPHEN Inactive XANAX 0.5 MG TABS 1 tablet every 6 hrs prn XANAX 0.5 MG TABS 615315 ALPRAZOLAM Inactive AUGMENTIN 875-125 MG TAB 1 tab by mouth twice daily with food AUGMENTIN 875-125 MG TAB 393605 AMOXICILLIN-POT CLAVULANATE Inactive ALPRAZOLAM 0.5 MG TABS 1 tab every 6hrs as needed ALPRAZOLAM 0.5 MG TABS 252286 ALPRAZOLAM Inactive SPIRONOLACTONE 25 MG TAB 0.5 tablet by mouth daily SPIRONOLACTONE 25 MG TAB 831910 SPIRONOLACTONE Inactive ACCU-CHEK KEYONA PLUS W/DEVICE KIT Use for testing bloodsugars three times daily as needed ACCU-CHEK KEYONA PLUS W/DEVICE KIT BLOOD GLUCOSE MONITORING SUPPL Inactive ACCU-CHEK KEYONA PLUS STRP Use for testing bloodsugars three times daily as needed ACCU-CHEK KEYONA PLUS STRP GLUCOSE BLOOD Inactive ACCU-CHEK FASTCLIX LANCETS MISC Use to check bloodsugar three times daily as needed ACCU-CHEK FASTCLIX LANCETS MISC 76630988899 LANCETS Inactive TRAMADOL HCL 50 MG TABS 1 tablets every 6 hours as needed for pain TRAMADOL HCL 50 MG TABS 372018 TRAMADOL HCL Inactive VENLAFAXINE HCL 75 MG TABS 1 po BID VENLAFAXINE HCL 75 MG TABS 004327 VENLAFAXINE HCL Inactive HYDROCODONE-ACETAMINOPHEN 5-500 MG TABS take one po Q 4-6 hours prn HYDROCODONE-ACETAMINOPHEN 5-500 MG TABS 738348 HYDROCODONE- ACETAMINOPHEN Inactive LORTAB 5 5-500 MG TABS 1/2 to 1 tablet by mouth every 4 hours as needed for pain LORTAB 5 5-500 MG TABS 535687 HYDROCODONE- ACETAMINOPHEN Inactive LAMISIL 250 MG TAB 1 po qd LAMISIL 250 MG TAB 491366 TERBINAFINE HCL Inactive VENLAFAXINE HCL 37.5 MG TABS 1 po BID VENLAFAXINE HCL 37.5 MG TABS 176200 VENLAFAXINE HCL Inactive CIPRO 500 MG TAB 1 tablet by mouth twice daily CIPRO 500 MG TAB 682784 CIPROFLOXACIN HCL Inactive VENLAFAXINE HCL 75 MG TABS 1 po BID VENLAFAXINE HCL 75 MG TABS 677531 VENLAFAXINE HCL Inactive SIMVASTATIN 40 MG TABS Take one by mouth daily SIMVASTATIN 40 MG TABS 352675 SIMVASTATIN Inactive OMEPRAZOLE 20 MG TBEC 1 PO 30 MIN BEFORE 1ST MEAL OMEPRAZOLE 20 MG TBEC 402724 OMEPRAZOLE Inactive FENOFIBRATE 145 MG TABS 1 po qd FENOFIBRATE 145 MG TABS 601780 FENOFIBRATE Inactive BACTRIM DS 800-160 MG TABS 1 bid x 14 day start 09-28-13 BACTRIM DS 800-160 MG TABS 963486 SULFAMETHOXAZOLE-TRIMETHOPRIM Inactive B-12 100 MCG TABS Take one by mouth daily B-12 100 MCG TABS CYANOCOBALAMIN Inactive GABAPENTIN 100 MG CAPS 1 po bid GABAPENTIN 100 MG CAPS 171339 GABAPENTIN Inactive HYDROCODONE-ACETAMINOPHEN 5-325 MG TABS 1 tab by mouth every 6 hours as needed for pain HYDROCODONE-ACETAMINOPHEN 5-325 MG TABS 084593 HYDROCODONE-ACETAMINOPHEN Inactive CIPRO 500 MG TABS 1 bid x 14 days start 09-28-13 CIPRO 500 MG TABS 553471 CIPROFLOXACIN HCL Inactive ALIGN 4 MG CAPS [...] as needed DICLOFENAC SODIUM 50 MG TBEC 444442 DICLOFENAC SODIUM Inactive PREDNISONE 20 MG TAB 2 tablets once daily for 2 days, then 1 tablet once daily for 2 days PREDNISONE 20 MG TAB 381138 PREDNISONE Inactive TRUEDRAW LANCING DEVICE MISC Test twice a day dx 250.0 TRUEDRAW LANCING DEVICE MISC LANCET DEVICES Inactive TRUERESULT BLOOD GLUCOSE W/DEVICE KIT test blood sugar twice daily dx 250.00 TRUERESULT BLOOD GLUCOSE W/DEVICE KIT BLOOD GLUCOSE MONITORING SUPPL Inactive FLONASE 50 MCG/ACT SUSP 1 spray each nostril twice daily until bottle empty FLONASE 50 MCG/ACT SUSP 7720121 FLUTICASONE PROPIONATE Inactive VENTOLIN HFA 108 (90 BASE) MCG/ACT AERS 1-2 puffs every 4 hours if needed for cough/congestion VENTOLIN HFA 108 (90 BASE) MCG/ACT AERS ALBUTEROL SULFATE Inactive REQUIP 2 MG TABS Take one tablet at bedtime prn REQUIP 2 MG TABS 583206 ROPINIROLE HCL Inactive SUPER B COMPLEX/VITAMIN C TABS 1 qd SUPER B COMPLEX/ VITAMIN C TABS 33929713436 B COMPLEX-C Inactive TRUEDRAW LANCING DEVICE MISC test blood sugar twice daily dx: 250.00 TRUEDRAW LANCING DEVICE MISC LANCET DEVICES Inactive TRUETEST TEST INVITR STRP test blood sugar twice daily. DX 250.0 TRUETEST TEST INVITR STRP GLUCOSE BLOOD Inactive CYCLOBENZAPRINE HCL 10 MG ORAL TABS 1 po TID PRN Muscle Spasm CYCLOBENZAPRINE HCL 10 MG ORAL TABS 888359 CYCLOBENZAPRINE HCL Inactive DICLOFENAC SODIUM 50 MG ORAL TBEC 1 po BID PRN Pain DICLOFENAC SODIUM 50 MG ORAL TBEC 744230 DICLOFENAC SODIUM Inactive TRIAMCINOLONE ACETONIDE 0.1 % OINT Apply to affected areas TID for up to 2 weeks TRIAMCINOLONE ACETONIDE 0.1 % OINT 9383712 TRIAMCINOLONE ACETONIDE Inactive PREDNISONE 20 MG TAB 2 tabs daily for 3 days, 1 tab daily for 3 days, 1/2 tab daily for 2 days PREDNISONE 20 MG TAB 694728 PREDNISONE Inactive PREDNISONE 20 MG TAB 2 tabs daily for 3 days, 1 tab daily for 3 days, 1/2 tab daily for 2 days PREDNISONE 20 MG TAB 560768 PREDNISONE Inactive BACTRIM DS 800-160 MG TABS 1 po BID x 7 days BACTRIM DS 800-160 MG TABS 874583 SULFAMETHOXAZOLE-TRIMETHOPRIM Inactive ZITHROMAX 250 MG TAB 2 po today, then 1 po q days 2-5 ZITHROMAX 250 MG TAB 786911 AZITHROMYCIN Inactive Advance Directives Directive Description Start Date DISCUSSED WITH PATIENT -- NO DECISION MADE Immunizations Vaccine Administration Date Value Standard Description Seasonal influenza vaccine, injectable, containing preservative, for > 3 years old (Afluria, FluLaval, Fluzone, Fluvirin, Fluarix, Agriflu(>=18 yo)) Fluzone (>3 yrs.) [[id number]] Influenza, seasonal, injectable influenza immunization (Flu Vax) has been administered 02/22/2012 influenza virus vaccine, unspecified formulation Seasonal influenza vaccine, injectable, containing preservative, for > 3 years old (Afluria, FluLaval, Fluzone, Fluvirin, Fluarix, Agriflu(>=18 yo)) Fluzone (>3 yrs.) [[id number]] Influenza, seasonal, injectable Vital Signs Date Name [...] Magnesium - Chemistry sodium, serum 143 mmol/L 239-520 1514/01/10 carbon dioxide, venous blood 28.0 mmol/L 21.0-32.0 potassium, serum 4.5 mmol/L 3.5-5.2 chloride, serum 104 mmol/L 98-107 blood glucose 158 mg/dL 65-110 urea nitrogen, blood 23 mg/dL 7-18 creatinine, serum 1.06 mg/dL 0.55-1.30 alanine aminotransferase (SGPT), serum 42 U/L 12-78 aspartate aminotransferase (SGOT), serum 32 U/L 15-37 calcium, serum 9.3 mg/dL 8.5-10.1 bilirubin, serum, total 0.20 mg/dL 0.00-1.00 cholesterol, serum 177 mg/dL 513-987 6636/01/10 triglyceride, serum, fasting 320 mg/dL 30-200 HDL cholesterol, serum 46 mg/dL 32-96 LDL cholesterol, serum 67 mg/dL 0-130 Lab Report: COMPREHENSIVE METABOLIC PANEL, LIPID PANEL, HEMOGLOBIN A1c - Chemistry cholesterol, serum 135 mg/dL 930-576 6576/05/17 HDL cholesterol, serum 41 mg/dL > OR=46 [...] <30 Encounters Code Encounter Date Provider Facility CPT-81836 Level 3 Est. Patient 14:20:36 CDT Tu Landeros MD [facility] CPT-35810 Level 4 Est. Patient 14:28:34 CDT Tu Landeros MD [facility] CPT-59520 Level 3 Est. Patient 13:33:09 CDT Tu Landeros MD [facility] CPT-01755 Level 4 Est. Patient 14:29:21 CDT Tu Landeros MD [facility] CPT-21505 Level 4 Est. Patient 09:08:17 FUR STRETCHER Tu Landeros MD [facility] CPT-13549 Level 4 Est. Patient 14:40:19 CDT Tu Landeros MD [facility] CPT-16148 Level 4 Est. Patient 14:06:04 FUR STRETCHER Tu Landeros MD [facility] CPT-96814 Level 3 Est. Patient 14:05:18 FUR STRETCHER Tu Landeros MD [facility] CPT-19031 Level 3 Est. Patient 10:06:54 FUR STRETCHER Miranda Suresh APRN [facility] CPT-13509 Level 4 Est. Patient 13:50:18 FUR STRETCHER Tu Landeros MD [facility] CPT-47033 Level 3 Est. Patient 10:30:04 CDT Tu Landeros MD [facility] CPT-63881 Level 4 Est. Patient 11:03:38 CDT Tu Landeros MD [facility] CPT-74185 Level 3 Est. Patient 10:20:44 CDT Fab Morales DO [facility] CPT-05352 Level 4 Est. Patient 14:38:57 CDT Tu Landeros MD [facility] CPT-95519 Level 4 Est. Patient 14:27:39 FUR STRETCHER Tu Landeros MD [facility] CPT-26954 Level 4 Est. Patient 09:45:25 CDT Tu Landeros MD [facility] CPT-69241 Level 4 Est. Patient 09:05:20 FUR STRETCHER Tu Landeros MD [facility] CPT-37317 Level 4 Est. Patient 14:09:06 CDT Tu Landeros MD [facility] CPT-89352 Level 3 Est. Patient 13:36:54 CDT Tu Landeros MD [facility] CPT-92004 Level 3 Est. Patient 08:59:14 CDT Tu Landeros MD [facility] CPT-16114 Level 3 Est. Patient 13:48:35 CDT Fab Morales DO [facility] CPT-97431 Level 4 Est. Patient 10:05:48 CDT Tu Landeros MD [facility] CPT-02275 Level 3 Est. Patient 13:38:42 CDT Marek BANKS [facility] CPT-83065 Level 5 Est. Patient 08:08:39 CDT Jerrica FRANCIS [facility] CPT-90926 Level 4 Est. Patient 14:23:38 CDT Tu Landeros MD [facility] CPT-45657 Level 3 Est. Patient 11:44:04 CDT Tu Landeros MD [facility] CPT-29862 Level 3 Est. Patient 11:03:20 FUR STRETCHER Tu Landeros MD [facility] CPT-86978 Level 3 Est. Patient 11:03:14 FUR STRETCHER Tu Landeros MD [facility] CPT-94840 Level 3 Est. Patient 12:42:49 CDT Tu Landeros MD [facility] CPT-53844 Level 3 Est. Patient 11:52:06 CDT Tu Landeros MD [facility] CPT-66117 Level 3 Est. Patient 13:58:11 CDT Tu Landeros MD [facility] CPT-81039 Level 3 Est. Patient 17:50:07 CDT Fab Morales DO [facility] CPT-19423 Level 3 Est. Patient 12:06:29 CDT Elvira Cervantes MD, PhD [facility] CPT-88344 Level 3 Est. Patient 15:50:32 CDT Tu Landeros MD [facility] CPT-79275 Level 4 Est. Patient 16:08:29 CDT Tu Landeros MD [facility] CPT-55997 Level 3 Est. Patient 16:04:19 CDT Tu Landeors MD [facility] CPT-84513 Level 3 Est. Patient 11:22:30 FUR STRETCHER Tu Landeros MD [facility] CPT-69295 Level 4 Est. Patient 16:24:02 FUR STRETCHER Tu Landeros MD [facility] CPT-96433 Level 3 Est. Patient 17:21:23 FUR STRETCHER Tu Landeros MD [facility] Procedures Code Procedure Name Date Entry Date Standard Description CPT-18175 Shoulder, right, comp min 2V - XRAY USE ONLY 13:50:22 CDT CPT-G0009 Administration of Pneumococcal Vaccine 15:08:26 CDT CPT-73432 Prevnar 13 Intramuscular Suspension 15:08:26 CDT 10/08 CPT-G0439 Subsequent Annual Wellness Exam 14:29:22 CDT CPT-09704 Venipuncture Draw Fee 13:15:35 CDT CPT-40721 Magnesium - LAB USE ONLY 11:14:20 FUR STRETCHER CPT-23494 Lipid - LAB USE ONLY 11:14:20 FUR STRETCHER CPT-15772 HGBA1C - LAB USE ONLY 11:14:20 FUR STRETCHER CPT-77437 CMP - LAB USE ONLY 11:14:19 FUR STRETCHER CPT-96966 CBC - LAB USE ONLY 11:14:19 FUR STRETCHER CPT-89451 Venipuncture Draw Fee 11:14:18 FUR STRETCHER CPT-25284 First Vx - Ix admin for Medicare patients 16:46:52 CDT CPT-12754 Fluzone Preservative Free Intramuscular Suspension 16:46 :51 CDT CPT-90882 CBC - LAB USE ONLY 17:14:46 CDT CPT-29444 HGBA1C - LAB USE ONLY 17:14:46 CDT CPT-88085 Venipuncture Draw Fee 17:14:46 CDT CPT-G0438 Initial Annual Wellness Exam 14:13:04 CDT CPT-74051 Breathing Tx 10:06:54 FUR STRETCHER CPT-94458 Postop F/U Visit 10:02:45 CDT CPT-LR Lesion Removal 09:02:56 CDT CPT-JTINJ Asp/Joint Injection 15:51:27 FUR STRETCHER CPT-OV Office Visit 15:52:02 FUR STRETCHER CPT-OV Office Visit 15:45:11 CDT CPT-000 Give Zostavax 14:09:06 CDT CPT-51215 Administration single or combination vaccine inc oral 15 :19:04 CDT CPT-58528 Zoster Vaccine (Zostavax) 15:19:04 CDT CPT-89658 Administration single or combination vaccine inc oral 20 :51:03 CDT CPT-56092 Influenza split virus > age 3 20:51:03 CDT CPT-15414 No Charge Offi Visit 14:52:03 CDT CPT-OV Office Visit 14:57:43 CDT CPT-OV Office Visit 15:22:32 CDT CPT-78296 Administration single or combination vaccine inc oral 11 :33:15 CDT CPT-54767 Influenza split virus > age 3 11:33:15 CDT
--- OUTSIDE RECORDS SUMMARY | 2018-04-25 18:16 | XMS REPORT | Clinical Summary ---
Author Author Admin, SACHI Organization [facility] Address Unknown Phone Unavailable Allergies, Adverse Reactions, [...] care facility SLEEP APNEA, OBSTRUCTIVE 327.23 Inactive uT Landeros MD Obstructive sleep apnea (adult) [...] then 1 po qd x 4 AZITHROMYCIN 12308094067 Active Tu Landeros MD Active GUAIFENESIN ER 600 MG ORAL TABLET EXTENDED RELEASE 12 HOUR 1 twice a day as needed for congestion GUAIFENESIN 36165430604 No Longer Active Tu Landeros MD Active PREDNISONE 20 MG ORAL TABLET 2 po qd x 5 days PREDNISONE 46942337577 No Longer Active Tu Landeros MD Active PROMETHAZINE-CODEINE 6.25-10 MG/5ML ORAL SYRUP 5ml po q6hr PRN Cough PROMETHAZINE-CODEINE 27102327905 Active Tu Landeros MD Active FLUTICASONE PROPIONATE 50 MCG/ACT NASAL SUSPENSION 2 sprays/nostril qd PRN Congestion/Allergies FLUTICASONE PROPIONATE 72315261890 Active Tu Landeros MD Active NASONEX 50 MCG/ACT NASAL SUSPENSION 2 actuations in each nostril q day 07/15 MOMETASONE FUROATE 38597989236 No Longer Active Tu Landeros MD Active MAGNESIUM OXIDE 400 MG ORAL TABLET 1 po BID MAGNESIUM OXIDE 17903194262 Active Tu Landeros MD Active SIMVASTATIN 20 MG ORAL TABLET 0.5 po qHS SIMVASTATIN 79593100154 Active Tu Landeros MD Active DICLOFENAC SODIUM 75 MG ORAL TABLET DELAYED RELEASE 1 po BID PRN Pain DICLOFENAC SODIUM 21261568539 No Longer Active Tu Landeros MD Active GABAPENTIN 100 MG ORAL CAPSULE 1 po TID GABAPENTIN 13285889902 Active Tu Landeros MD Active DICLOFENAC SODIUM 50 MG ORAL TABLET DELAYED RELEASE 1 po BID PRN Pain DICLOFENAC SODIUM 75736894037 No Longer Active Tu Landeros MD Active CYCLOBENZAPRINE HCL 10 MG ORAL TABLET 1 po TID PRN Muscle Spasm CYCLOBENZAPRINE HCL 31254472624 No Longer Active Tu Landeros MD Active INVOKANA 100 MG ORAL TABLET 1 po qd CANAGLIFLOZIN 06623609764 Active Tu Landeros MD Active GLIPIZIDE 5 MG ORAL TABLET 1 po qd GLIPIZIDE 69522168316 No Longer Active uT Landeros MD Active VENLAFAXINE HCL 75 MG ORAL TABLET 1 po BID VENLAFAXINE HCL 92609173544 Active Tu Landeros MD Active GLIMEPIRIDE 1 MG ORAL TABLET 1 po qd GLIMEPIRIDE 07125357701 No Longer Active Tu Landeros MD Active TRUE METRIX BLOOD GLUCOSE TEST IN VITRO STRIP Test blood sugar BID Dx: E11.9 GLUCOSE BLOOD 33095290150 Active Tu Landeros MD Active TRUE METRIX AIR GLUCOSE METER w/Device KIT Test blood glucose BID Dx: E11.9 BLOOD GLUCOSE MONITORING SUPPL 55906741672 Active Tu Landeros MD Active TRUETEST TEST IN VITRO STRIP test blood sugar twice daily. DX 250.0 GLUCOSE BLOOD 71479801282 No Longer Active Mirna Stanley LPN Active TRUEDRAW LANCING DEVICE test blood sugar twice daily dx: 250.00 LANCET DEVICES 84946307134 No Longer Active Mirna Stanley LPN Active ENALAPRIL MALEATE 20 MG ORAL TABLET 2 po qd ENALAPRIL MALEATE 33138493327 Active Tu Landeros MD Active SUPER B COMPLEX/VITAMIN C ORAL TABLET 1 qd B COMPLEX- C 03283974661 No Longer Active Tu Landeros MD Active ASPIRIN EC 81 MG ORAL TABLET DELAYED RELEASE 1 po qd ASPIRIN 70685351730 Active Tu Landeros MD Active GLUCOSAMINE 500 MG TABS 2 po qd GLUCOSAMINE Active Tu Landeros MD Active FISH OIL 1000 MG ORAL CAPSULE 1 po qd OMEGA-3 FATTY ACIDS 69368189208 Active Tu Landeros MD Active METFORMIN HCL 1000 MG ORAL TABLET 1 po BID METFORMIN HCL 53549226626 Active Tu Landeros MD Active KLOR-CON 10 10 MEQ ORAL TABLET EXTENDED RELEASE 2 po qd POTASSIUM CHLORIDE 27231940415 Active Tu Landeros MD Active FUROSEMIDE 40 MG ORAL TABLET 1 po qd FUROSEMIDE 56218039204 Active Tu Landeros MD Active REQUIP 2 MG ORAL TABLET 1 po qHS PRN Restless legs ROPINIROLE HCL 07646791878 Active Tu Landeros MD Active REQUIP 2 MG ORAL TABLET Take one tablet at bedtime prn ROPINIROLE HCL 67780275758 No Longer Active Tu Landeros MD Active VENTOLIN HFA 108 (90 Base) MCG/ACT INHALATION AEROSOL SOLUTION 1-2 puffs every 4 hours if needed for cough/congestion ALBUTEROL SULFATE 34349175599 No Longer Active Ambika Aden APRN Active ZITHROMAX 250 MG ORAL TABLET 2 po today, then 1 po q days 2-5 AZITHROMYCIN 16948766913 No Longer Active Miranda Farah APRN Active FLONASE 50 MCG/ACT NASAL SUSPENSION 1 spray each nostril twice daily until bottle empty FLUTICASONE PROPIONATE 74568476883 No Longer Active Tu Landeros MD Active COLACE 100 MG ORAL CAPSULE 1 po BID PRN Constipation DOCUSATE SODIUM 19211530940 Active Tu Landeros MD Active TRUERESULT BLOOD GLUCOSE w/Device KIT test blood sugar twice daily dx 250.00 BLOOD GLUCOSE MONITORING SUPPL 10828713054 No Longer Active Tu Landeros MD Active TRUEDRAW LANCING DEVICE Test twice a day dx 250.0 LANCET DEVICES 82474788362 No Longer Active Tu Landeros MD Active PREDNISONE 20 MG ORAL TABLET 2 tablets once daily for 2 days, then 1 tablet once daily for 2 days PREDNISONE 41815838097 No Longer Active Tu Landeros MD Active DICLOFENAC SODIUM 50 MG ORAL TABLET DELAYED RELEASE 1 tablet by mouth three times a day as needed DICLOFENAC SODIUM 52676293253 No Longer Active Fab Morales DO Active EMBRACE BLOOD GLUCOSE TEST IN VITRO STRIP test blood sugar twice daily DX 250.0 GLUCOSE BLOOD 56127959708 No Longer Active Tu Landeros MD Active TRUETEST TEST IN VITRO STRIP test blood sugar three times daily dx: 250.00 GLUCOSE BLOOD 46194585148 No Longer Active Suzebianca Nicole RMA Active TRUERESULT BLOOD GLUCOSE w/Device KIT use to test blood sugar tid dx: 250.00 BLOOD GLUCOSE MONITORING SUPPL 59510528656 No Longer Active Suze Corey RMA Active ALIGN 4 MG ORAL CAPSULE 1 tid PROBIOTIC PRODUCT 29360149648 No Longer Active Shaun Sy MD Active CIPRO 500 MG ORAL TABLET 1 bid x 14 days start 09-28-13 CIPROFLOXACIN HCL 16156549536 No Longer Active Shaun Sy MD Active TRAMADOL HCL 50 MG ORAL TABLET 1-2 tablets every 6 hours as needed for pain TRAMADOL HCL 80226029070 Active Tu Landeros MD Active HYDROCODONE-ACETAMINOPHEN 5-325 MG ORAL TABLET 1 tab by mouth every 6 hours as needed for pain HYDROCODONE-ACETAMINOPHEN 89775646313 No Longer Active Tu Landeros MD Active OMEPRAZOLE 20 MG ORAL CAPSULE DELAYED RELEASE 1 po q a.m. OMEPRAZOLE 93438650952 Active Fab Morales DO Active GABAPENTIN 100 MG ORAL CAPSULE 1 po bid GABAPENTIN 96832382775 No Longer Active Tu Landeros MD Active B-12 100 MCG ORAL TABLET Take one by mouth daily CYANOCOBALAMIN 77425256105 No Longer Active Tu Landeros MD Active BACTRIM DS 800-160 MG ORAL TABLET 1 bid x 14 day start 09-28-13 SULFAMETHOXAZOLE-TRIMETHOPRIM 23708784230 No Longer Active Tu Landeros MD Active CARVEDILOL 12.5 MG ORAL TABLET 1 po BID CARVEDILOL 26588586453 Active Tu Landeros MD Active TRILIPIX 135 MG ORAL CAPSULE DELAYED RELEASE 1 q hs CHOLINE FENOFIBRATE 41549547283 Active Tu Landeros MD Active FENOFIBRATE 145 MG ORAL TABLET 1 po qd FENOFIBRATE 15841913327 No Longer Active JASPREET Perez Active OMEPRAZOLE 20 MG ORAL TABLET DELAYED RELEASE 1 PO 30 MIN BEFORE 1ST MEAL 2010 OMEPRAZOLE 04909239077 No Longer Active JASPREET Perez Active SIMVASTATIN 40 MG ORAL TABLET Take one by mouth daily SIMVASTATIN 89972757392 No Longer Active JASPREET Perez Active VENLAFAXINE HCL 75 MG ORAL TABLET 1 po BID VENLAFAXINE HCL 39700013496 No Longer Active JASPREET Perez Active CIPRO 500 MG ORAL TABLET 1 tablet by mouth twice daily CIPROFLOXACIN HCL 03899563980 No Longer Active Tu Landeros MD Active VENLAFAXINE HCL 37.5 MG ORAL TABLET 1 po BID VENLAFAXINE HCL 89852865372 No Longer Active Suze VOGEL Active LAMISIL 250 MG ORAL TABLET 1 po qd TERBINAFINE HCL 59026081589 No Longer Active Tu Landeros MD Active LORTAB 5-500 MG ORAL TABLET 1/2 to 1 tablet by mouth every 4 hours as needed for pain HYDROCODONE-ACETAMINOPHEN 73722075781 No Longer Active Tu Landeros MD Active HYDROCODONE-ACETAMINOPHEN 5-500 MG ORAL TABLET take one po Q 4-6 hours prn HYDROCODONE-ACETAMINOPHEN 28216720833 No Longer Active Tu Landeros MD Active BACTRIM DS 800-160 MG ORAL TABLET 1 po BID x 7 days SULFAMETHOXAZOLE-TRIMETHOPRIM 95446415322 No Longer Active Tu Landeros MD Active VENLAFAXINE HCL 75 MG ORAL TABLET 1 po BID VENLAFAXINE HCL 70540176197 No Longer Active Elvira Cervantes MD PhD Active TRAMADOL HCL 50 MG ORAL TABLET 1 tablets every 6 hours as needed for pain TRAMADOL HCL 33050206201 No Longer Active Tu Landeros MD Active ACCU-CHEK FASTCLIX LANCETS Use to check bloodsugar three times daily as needed LANCETS 03088009727 No Longer Active Tu Landeros MD Active ACCU-CHEK KEYONA PLUS IN VITRO STRIP Use for testing bloodsugars three times daily as needed GLUCOSE BLOOD 54268073128 No Longer Active Tu Landeros MD Active ACCU-CHEK KEYONA PLUS w/Device KIT Use for testing bloodsugars three times daily as needed BLOOD GLUCOSE MONITORING SUPPL 07786389468 No Longer Active Tu Landeros MD Active SPIRONOLACTONE 25 MG ORAL TABLET 0.5 tablet by mouth daily 09/09 SPIRONOLACTONE 25944142274 No Longer Active Tu Landeros MD Active ALPRAZOLAM 0.5 MG ORAL TABLET 1 tab every 6hrs as needed ALPRAZOLAM 28612168179 No Longer Active Tu Landeros MD Active AUGMENTIN 875-125 MG ORAL TABLET 1 tab by mouth twice daily with food AMOXICILLIN-POT CLAVULANATE 50114023377 No Longer Active Tu Landeros MD Active PREDNISONE 20 MG ORAL TABLET 2 tabs daily for 3 days, 1 tab daily for 3 days, 1/2 tab daily for 2 days PREDNISONE 24802932925 No Longer Active Tu Landeros MD Active XANAX 0.5 MG ORAL TABLET 1 tablet every 6 hrs prn ALPRAZOLAM 99877185218 No Longer Active Tu Landeros MD Active PREDNISONE 20 MG ORAL TABLET 2 tabs daily for 3 days, 1 tab daily for 3 days, 1/2 tab daily for 2 days PREDNISONE 08013390394 No Longer Active Tu Landeros MD Active TRIAMCINOLONE ACETONIDE 0.1 % EXTERNAL OINTMENT Apply to affected areas TID for up to 2 weeks TRIAMCINOLONE ACETONIDE 95391017737 No Longer Active Tu Landeros MD Active LORTAB 5-500 MG ORAL TABLET 1/2 to 1 tablet by mouth every 4 hours as needed for pain HYDROCODONE-ACETAMINOPHEN 46376740736 No Longer Active Tu Landeros MD Active MULTIVITAMINS TABS Take one by mouth daily MULTIPLE VITAMIN 18155445947 No Longer Active Tu Landeros MD Active MELATONIN 5 MG ORAL TABLET Take one by mouth daily MELATONIN 49182205622 No Longer Active Tu Landeros MD Active SOMA 350 MG ORAL TABLET 1 po q 6 hours prn spasm CARISOPRODOL 20243304171 No Longer Active Tu Landeros MD Active MECLIZINE HCL 25 MG ORAL TABLET CHEWABLE 1 four times a day as needed for dizziness MECLIZINE HCL 31427000855 No Longer Active Fab Morales DO Active ANGEL BREEZE 2 TEST IN VITRO DISK test tid prn GLUCOSE BLOOD 14855087853 No Longer Active Negra Scott RN Active REGLAN 10 MG ORAL TABLET 1 po TID PRN Nausea METOCLOPRAMIDE HCL 69882709410 No Longer Active Tu Landeros MD Active METFORMIN HCL 500 MG ORAL TABLET 1 PO BID METFORMIN HCL 49394356012 No Longer Active Tu Landeros MD Active AMBIEN 10 MG ORAL TABLET 1 tab by mouth at bedtime as needed for sleep 06/10 ZOLPIDEM TARTRATE 08621238746 No Longer Active Tu Landeros MD Active FLUOXETINE HCL 40 MG ORAL CAPSULE 1 po q day FLUOXETINE HCL 00764866739 No Longer Active Mayra Terry Active TRILIPIX 135 MG ORAL CAPSULE DELAYED RELEASE 1 po qd CHOLINE FENOFIBRATE 09194936731 No Longer Active Tu Landeros MD Active AMBIEN 10 MG ORAL TABLET 1 tab by mouth at bedtime as needed for sleep 06/10 AMBIEN 10 MG ORAL TABLET 744260 ZOLPIDEM TARTRATE Inactive METFORMIN HCL 500 MG ORAL TABLET 1 PO BID METFORMIN HCL 500 MG ORAL TABLET 056811 METFORMIN HCL Inactive REGLAN 10 MG ORAL TABLET 1 po TID PRN Nausea REGLAN 10 MG ORAL TABLET 188906 METOCLOPRAMIDE HCL Inactive MECLIZINE HCL 25 MG ORAL TABLET CHEWABLE 1 four times a day as needed for dizziness MECLIZINE HCL 25 MG ORAL TABLET CHEWABLE 252526 MECLIZINE HCL Inactive SOMA 350 MG ORAL TABLET 1 po q 6 hours prn spasm SOMA 350 MG ORAL TABLET 340288 CARISOPRODOL Inactive MELATONIN 5 MG ORAL TABLET Take one by mouth daily MELATONIN 5 MG ORAL TABLET 297365 MELATONIN Inactive MULTIVITAMINS TABS Take one by mouth daily MULTIVITAMINS TABS MULTIPLE VITAMIN Inactive LORTAB 5-500 MG ORAL TABLET 1/2 to 1 tablet by mouth every 4 hours as needed for pain LORTAB 5-500 MG ORAL TABLET HYDROCODONE- ACETAMINOPHEN Inactive XANAX 0.5 MG ORAL TABLET 1 tablet every 6 hrs prn XANAX 0.5 MG ORAL TABLET 848270 ALPRAZOLAM Inactive AUGMENTIN 875-125 MG ORAL TABLET 1 tab by mouth twice daily with food AUGMENTIN 875-125 MG ORAL TABLET 285863 AMOXICILLIN-POT CLAVULANATE Inactive ALPRAZOLAM 0.5 MG ORAL TABLET 1 tab every 6hrs as needed ALPRAZOLAM 0.5 MG ORAL TABLET 187822 ALPRAZOLAM Inactive SPIRONOLACTONE 25 MG ORAL TABLET 0.5 tablet by mouth daily 09/09 SPIRONOLACTONE 25 MG ORAL TABLET 177073 SPIRONOLACTONE Inactive ACCU-CHEK KEYONA PLUS w/Device KIT [...] times daily as needed ACCU-CHEK FASTCLIX LANCETS 39045264789 LANCETS Inactive TRAMADOL HCL 50 MG ORAL TABLET 1 tablets every 6 hours as needed for pain TRAMADOL HCL 50 MG ORAL TABLET 951102 TRAMADOL HCL Inactive VENLAFAXINE HCL 75 MG ORAL TABLET 1 po BID VENLAFAXINE HCL 75 MG ORAL TABLET 383558 VENLAFAXINE HCL Inactive HYDROCODONE-ACETAMINOPHEN 5-500 MG ORAL TABLET take one po Q 4-6 hours prn HYDROCODONE-ACETAMINOPHEN 5-500 MG ORAL TABLET 833857 HYDROCODONE-ACETAMINOPHEN Inactive LORTAB 5-500 MG ORAL TABLET 1/2 to 1 tablet by mouth every 4 hours as needed for pain LORTAB 5-500 MG ORAL TABLET HYDROCODONE- ACETAMINOPHEN Inactive LAMISIL 250 MG ORAL TABLET 1 po qd LAMISIL 250 MG ORAL TABLET 930058 TERBINAFINE HCL Inactive VENLAFAXINE HCL 37.5 MG ORAL TABLET 1 po BID VENLAFAXINE HCL 37.5 MG ORAL TABLET 928749 VENLAFAXINE HCL Inactive CIPRO 500 MG ORAL TABLET 1 tablet by mouth twice daily CIPRO 500 MG ORAL TABLET 132223 CIPROFLOXACIN HCL Inactive VENLAFAXINE HCL 75 MG ORAL TABLET 1 po BID VENLAFAXINE HCL 75 MG ORAL TABLET 323292 VENLAFAXINE HCL Inactive SIMVASTATIN 40 MG ORAL TABLET Take one by mouth daily SIMVASTATIN 40 MG ORAL TABLET 727163 SIMVASTATIN Inactive OMEPRAZOLE 20 MG ORAL TABLET DELAYED RELEASE 1 PO 30 MIN BEFORE 1ST MEAL 2010 OMEPRAZOLE 20 MG ORAL TABLET DELAYED RELEASE 840782 OMEPRAZOLE Inactive FENOFIBRATE 145 MG ORAL TABLET 1 po qd FENOFIBRATE 145 MG ORAL TABLET 031428 FENOFIBRATE Inactive BACTRIM DS 800-160 MG ORAL TABLET 1 bid x 14 day start 09-28-13 BACTRIM DS 800-160 MG ORAL TABLET 149431 SULFAMETHOXAZOLE- TRIMETHOPRIM Inactive B-12 100 MCG ORAL TABLET Take one by mouth daily B-12 100 MCG ORAL TABLET CYANOCOBALAMIN Inactive GABAPENTIN 100 MG ORAL CAPSULE 1 po bid GABAPENTIN 100 MG ORAL CAPSULE 307441 GABAPENTIN Inactive HYDROCODONE-ACETAMINOPHEN 5-325 MG ORAL TABLET 1 tab by mouth every 6 hours as needed for pain HYDROCODONE-ACETAMINOPHEN 5-325 MG ORAL TABLET 276854 HYDROCODONE-ACETAMINOPHEN Inactive CIPRO 500 MG ORAL TABLET 1 bid x 14 days start 09-28-13 CIPRO 500 MG ORAL TABLET 364320 CIPROFLOXACIN HCL Inactive ALIGN 4 MG ORAL [...] SODIUM 50 MG ORAL TABLET DELAYED RELEASE 172266 DICLOFENAC SODIUM Inactive PREDNISONE 20 MG ORAL TABLET 2 tablets once daily for 2 days, then 1 tablet once daily for 2 days PREDNISONE 20 MG ORAL TABLET 185179 PREDNISONE Inactive TRUEDRAW LANCING DEVICE Test twice a day dx 250.0 TRUEDRAW LANCING DEVICE LANCET DEVICES Inactive TRUERESULT BLOOD GLUCOSE w/Device KIT test blood sugar twice daily dx 250.00 TRUERESULT BLOOD GLUCOSE w/Device KIT BLOOD GLUCOSE MONITORING SUPPL Inactive FLONASE 50 MCG/ACT NASAL SUSPENSION 1 spray each nostril twice daily until bottle empty FLONASE 50 MCG/ACT NASAL SUSPENSION 8775340 FLUTICASONE PROPIONATE Inactive VENTOLIN HFA 108 (90 Base) MCG/ACT INHALATION AEROSOL SOLUTION 1-2 puffs every 4 hours if needed for cough/congestion VENTOLIN HFA 108 (90 Base) MCG/ACT INHALATION AEROSOL SOLUTION ALBUTEROL SULFATE Inactive REQUIP 2 MG ORAL TABLET Take one tablet at bedtime prn REQUIP 2 MG ORAL TABLET 260673 ROPINIROLE HCL Inactive SUPER B COMPLEX/VITAMIN C ORAL TABLET 1 qd SUPER B COMPLEX/VITAMIN C ORAL TABLET 46271047731 B COMPLEX-C Inactive TRUEDRAW LANCING DEVICE test blood sugar twice daily dx: 250.00 TRUEDRAW LANCING DEVICE LANCET DEVICES Inactive TRUETEST TEST IN VITRO STRIP test blood sugar twice daily. DX 250.0 TRUETEST TEST IN VITRO STRIP GLUCOSE BLOOD Inactive CYCLOBENZAPRINE HCL 10 MG ORAL TABLET 1 po TID PRN Muscle Spasm CYCLOBENZAPRINE HCL 10 MG ORAL TABLET 788964 CYCLOBENZAPRINE HCL Inactive DICLOFENAC SODIUM 50 MG ORAL TABLET DELAYED RELEASE 1 po BID PRN Pain DICLOFENAC SODIUM 50 MG ORAL TABLET DELAYED RELEASE 956664 DICLOFENAC SODIUM Inactive DICLOFENAC SODIUM 75 MG ORAL TABLET DELAYED RELEASE 1 po BID PRN Pain DICLOFENAC SODIUM 75 MG ORAL TABLET DELAYED RELEASE 333423 DICLOFENAC SODIUM Inactive NASONEX 50 MCG/ACT NASAL SUSPENSION 2 actuations in each nostril q day 07/15 NASONEX 50 MCG/ACT NASAL SUSPENSION 4356616 MOMETASONE FUROATE Inactive GUAIFENESIN ER 600 MG ORAL TABLET EXTENDED RELEASE 12 HOUR 1 twice a day as needed for congestion GUAIFENESIN ER 600 MG ORAL TABLET EXTENDED RELEASE 12 HOUR GUAIFENESIN Inactive TRIAMCINOLONE ACETONIDE 0.1 % EXTERNAL OINTMENT Apply to affected areas TID for up to 2 weeks TRIAMCINOLONE ACETONIDE 0.1 % EXTERNAL OINTMENT 3989124 TRIAMCINOLONE ACETONIDE Inactive PREDNISONE 20 MG ORAL TABLET 2 tabs daily for 3 days, 1 tab daily for 3 days, 1/2 tab daily for 2 days PREDNISONE 20 MG ORAL TABLET 518567 PREDNISONE Inactive PREDNISONE 20 MG ORAL TABLET 2 tabs daily for 3 days, 1 tab daily for 3 days, 1/2 tab daily for 2 days PREDNISONE 20 MG ORAL TABLET 145525 PREDNISONE Inactive BACTRIM DS 800-160 MG ORAL TABLET 1 po BID x 7 days BACTRIM DS 800-160 MG ORAL TABLET 660906 SULFAMETHOXAZOLE-TRIMETHOPRIM Inactive ZITHROMAX 250 MG ORAL TABLET 2 po today, then 1 po q days 2-5 ZITHROMAX 250 MG ORAL TABLET 314078 AZITHROMYCIN Inactive PREDNISONE 20 MG ORAL TABLET 2 po qd x 5 days PREDNISONE 20 MG ORAL TABLET 750336 PREDNISONE Inactive Advance Directives Directive Description Start Date DISCUSSED WITH PATIENT -- NO DECISION MADE Immunizations Vaccine Administration Date Value Standard Description Seasonal influenza vaccine, injectable, containing preservative, for > 3 years old (Afluria, FluLaval, Fluzone, Fluvirin, Fluarix, Agriflu(>=18 yo)) Fluzone (>3 yrs.) [NCI691] Influenza, seasonal, injectable influenza immunization (Flu Vax) has been administered 02/22/2012 influenza virus vaccine, unspecified formulation Seasonal influenza vaccine, injectable, containing preservative, for > 3 years old (Afluria, FluLaval, Fluzone, Fluvirin, Fluarix, Agriflu(>=18 yo)) Fluzone (>3 yrs.) [[id number]] Influenza, seasonal, injectable Vital Signs Date Name [...] ... - Chemistry sodium, serum 141 mmol/L 173-654 7967/01/16 carbon dioxide, venous blood 28.3 mmol/L 21.0-32.0 [...] 6.7 % 4.3-6.0 cholesterol, serum 106 mg/dL 325-292 7780/01/16 triglyceride, serum, fasting 173 mg/dL 30-200 HDL [...] A1c - Chemistry cholesterol, serum 135 mg/dL 349-093 6806/05/17 HDL cholesterol, serum 41 mg/dL > OR=46 triglyceride, serum, fasting 206 mg/dL <150 LDL cholesterol, serum 53 MG/DL (CALC) mg/dL <130 cholesterol/HDL ratio, serum 3.3 (calc) < OR=5.0 Lab Report: HGBA1C - Chemistry hemoglobin A1C, blood, as % of total hemoglobin 6.5 % 4.3-6.0 Encounters Code Encounter Date Provider Facility CPT-92067 Level 3 Est. Patient 10:13:19 SOAKING ROOM OPERATOR Lesli Kellogg [facility] CPT-87136 Level 4 Est. Patient 13:42:02 SOAKING ROOM OPERATOR [facility]os [facility] CPT-43798 Level 3 Est. Patient 14:20:36 CDT [facility] CPT-99697 Level 4 Est. Patient 14:28:34 CDT [facility] CPT-13494 Level 3 Est. Patient 13:33:09 CDT [facility] CPT-50142 Level 4 Est. Patient 14:29:21 CDT [facility] CPT-53214 Level 4 Est. Patient 09:08:17 SOAKING ROOM OPERATOR Tu [facility] CPT-15647 Level 4 Est. Patient 14:40:19 CDT Tu [facility] CPT-54767 Level 4 Est. Patient 14:06:04 SOAKING ROOM OPERATOR Tu [facility] CPT-64540 Level 3 Est. Patient 14:05:18 SOAKING ROOM OPERATOR uT L[facility]os MD [facility] CPT-46046 Level 3 Est. Patient 10:06:54 SOAKING ROOM OPERATOR Miranda Farah [facility] CPT-87869 Level 4 Est. Patient 13:50:18 SOAKING ROOM OPERATOR Tu Landeros MD [facility] CPT-31528 Level 3 Est. Patient 10:30:04 CDT Tu Landeros MD [facility] CPT-35858 Level 4 Est. Patient 11:03:38 CDT Tu Landeros MD [facility] CPT-27534 Level 3 Est. Patient 10:20:44 CDT Fab Morales DO [facility] CPT-64010 Level 4 Est. Patient 14:38:57 CDT Tu Landeros MD [facility] CPT-19448 Level 4 Est. Patient 14:27:39 SOAKING ROOM OPERATOR Tu Landeros MD [facility] CPT-27975 Level 4 Est. Patient 09:45:25 CDT Tu Landeros MD [facility] CPT-12797 Level 4 Est. Patient 09:05:20 SOAKING ROOM OPERATOR [facility] CPT-55291 Level 4 Est. Patient 14:09:06 CDT Tu Landeros MD [facility] CPT-85238 Level 3 Est. Patient 13:36:54 CDT Tu Landeros MD [facility] CPT-30356 Level 3 Est. Patient 08:59:14 CDT [facility] CPT-02481 Level 3 Est. Patient 13:48:35 CDT Fab Morales DO [facility] CPT-78087 Level 4 Est. Patient 10:05:48 CDT Tu Landeros MD [facility] CPT-82723 Level 3 Est. Patient 13:38:42 CDT Marek BANKS [facility] CPT-03555 Level 5 Est. Patient 08:08:39 CDT Jerrica FRANCIS [facility] CPT-85349 Level 4 Est. Patient 14:23:38 CDT Tu Landeros MD [facility] CPT-00117 Level 3 Est. Patient 11:44:04 CDT Tu Landreos MD [facility] CPT-98001 Level 3 Est. Patient 11:03:20 SOAKING ROOM OPERATOR Tu Landeros MD [facility] CPT-87229 Level 3 Est. Patient 11:03:14 SOAKING ROOM OPERATOR Tu Landeros MD [facility] CPT-28644 Level 3 Est. Patient 12:42:49 CDT Tu Landeros MD [facility] CPT-49868 Level 3 Est. Patient 11:52:06 CDT Tu Landeros MD [facility] CPT-29069 Level 3 Est. Patient 13:58:11 CDT Tu Landeros MD [facility] CPT-69225 Level 3 Est. Patient 17:50:07 CDT Fab Morales DO [facility] CPT-96385 Level 3 Est. Patient 12:06:29 CDT Elvira Cervantes MD PhD [facility] CPT-27933 Level 3 Est. Patient 15:50:32 CDT Tu Landeros MD [facility] CPT-81002 Level 4 Est. Patient 16:08:29 CDT Tu Landeros MD [facility] CPT-22384 Level 3 Est. Patient 16:04:19 CDT Tu Landeros MD [facility] CPT-56861 Level 3 Est. Patient 11:22:30 SOAKING ROOM OPERATOR Tu Landeros MD [facility] CPT-36591 Level 4 Est. Patient 16:24:02 SOAKING ROOM OPERATOR Tu Landeros MD [facility] CPT-84129 Level 3 Est. Patient 17:21:23 SOAKING ROOM OPERATOR Tu Landeros MD [facility] Procedures Code Procedure Name Date Entry Date Standard Description CPT-67079 Shoulder, right, comp min 2V - XRAY USE ONLY 13:50:22 CDT CPT-G0009 Administration of Pneumococcal Vaccine 15:08:26 CDT CPT-04399 Prevnar 13 Intramuscular Suspension 15:08:26 CDT 10/08 CPT-G0439 [facility] Annual Wellness Exam 14:29:22 CDT CPT-57990 Venipuncture Draw Fee 13:15:35 CDT CPT-43534 Magnesium - LAB USE ONLY 11:14:20 SOAKING ROOM OPERATOR CPT-15510 Lipid - LAB USE ONLY 11:14:20 SOAKING ROOM OPERATOR CPT-33829 HGBA1C - LAB USE ONLY 11:14:20 SOAKING ROOM OPERATOR CPT-08916 CMP - LAB USE ONLY 11:14:19 SOAKING ROOM OPERATOR CPT-85893 CBC - LAB USE ONLY 11:14:19 SOAKING ROOM OPERATOR CPT-99384 Venipuncture Draw Fee 11:14:18 SOAKING ROOM OPERATOR CPT-31968 First Vx - Ix admin for Medicare patients 16:46:52 CDT CPT-18028 Fluzone Preservative Free Intramuscular Suspension 16:46 :51 CDT CPT-69492 CBC - LAB USE ONLY 17:14:46 CDT CPT-20239 HGBA1C - LAB USE ONLY 17:14:46 CDT CPT-76917 Venipuncture Draw Fee 17:14:46 CDT CPT-G0438 Initial Annual Wellness Exam 14:13:04 CDT CPT-28568 Breathing Tx 10:06:54 SOAKING ROOM OPERATOR CPT-15983 Postop F/U Visit 10:02:45 CDT CPT-LR Lesion Removal 09:02:56 CDT CPT-JTINJ Asp/Joint Injection 15:51:27 SOAKING ROOM OPERATOR CPT-OV Office Visit 15:52:02 SOAKING ROOM OPERATOR CPT-OV Office Visit 15:45:11 CDT CPT-000 Give Zostavax 14:09:06 CDT CPT-33286 Administration single or combination vaccine inc oral 15 :19:04 CDT CPT-35195 Zoster Vaccine (Zostavax) 15:19:04 CDT CPT-38002 Administration single or combination vaccine inc oral 20 :51:03 CDT CPT-40721 Influenza split virus > age 3 20:51:03 CDT CPT-50881 No Charge Offi Visit 14:52:03 CDT CPT-OV Office Visit 14:57:43 CDT CPT-OV Office Visit 15:22:32 CDT CPT-49219 Administration single or combination vaccine inc oral 11 :33:15 CDT CPT-62669 Influenza split virus > age 3 11:33:15 CDT
--- OUTSIDE RECORDS SUMMARY | 2018-04-25 18:18 | XMS REPORT | Clinical Summary ---
Author Author Admin, SACHI Clemons [facility] Address Unknown Phone Unavailable Allergies, Adverse [...] hours if needed for cough/congestion ALBUTEROL SULFATE 57783709499 Active Miranda Suresh APRN Active ZITHROMAX 250 MG TAB 2 po today, then 1 po q days 2-5 AZITHROMYCIN 34948024219 No Longer Active Miranda Suresh APRN Active METFORMIN HCL 1000 MG TABS 1 tablet by mouth twice daily METFORMIN HCL 12413494307 Active Tu Landeros MD Active FLONASE 50 MCG/ACT SUSP 1 spray each nostril twice daily until bottle empty FLUTICASONE PROPIONATE 77325954363 No Longer Active Tu Landeros MD Active COLACE 100 MG CAP 1 po BID PRN Constipation DOCUSATE SODIUM 37791736471 Active Tu Landeros MD Active SIMVASTATIN 40 MG TABS 0.5 tab daily at bedtime SIMVASTATIN 75524492003 Active JASPREET Moffett Active TRUERESULT BLOOD GLUCOSE W/DEVICE KIT test blood sugar twice daily dx 250.00 BLOOD GLUCOSE MONITORING SUPPL 48199207376 No Longer Active Tu Landeros MD Active TRUEDRAW LANCING DEVICE MISC Test twice a day dx 250.0 LANCET DEVICES 70648984237 No Longer Active Tu Landeros MD Active PREDNISONE 20 MG TAB 2 tablets once daily for 2 days, then 1 tablet once daily for 2 days PREDNISONE 92247185814 No Longer Active Tu Landeros MD Active DICLOFENAC SODIUM 50 MG TBEC 1 tablet by mouth three times a day as needed DICLOFENAC SODIUM 89442142629 No Longer Active Fab Morales DO Active TRUEDRAW LANCING DEVICE MISC test blood sugar twice daily dx: 250.00 LANCET DEVICES 37158733131 Active Tu Landeros MD Active TRUETEST TEST INVITR STRP test blood sugar twice daily. DX 250.0 GLUCOSE BLOOD 74598069883 Active Tu Landeros MD Active EMBRACE BLOOD GLUCOSE TEST STRP test blood sugar twice daily DX 250.0 2014 GLUCOSE BLOOD 50835509345 No Longer Active Tu Landeros MD Active TRUETEST TEST STRP test blood sugar three times daily dx: 250.00 GLUCOSE BLOOD 79568207286 No Longer Active Suze Corey RMA Active TRUERESULT BLOOD GLUCOSE W/DEVICE KIT use to test blood sugar tid dx: 250.00 BLOOD GLUCOSE MONITORING SUPPL 52512148421 No Longer Active Suze Hardenehart RMA Active ALIGN 4 MG CAPS 1 tid PROBIOTIC PRODUCT 52865097321 No Longer Active Shaun Sy MD Active CIPRO 500 MG TABS 1 bid x 14 days start 09-28-13 CIPROFLOXACIN HCL 02970197539 No Longer Active Shaun Sy MD Active TRAMADOL HCL 50 MG TABS 1-2 tablets every 6 hours as needed for pain TRAMADOL HCL 10024431385 Active Simon Smith MD Active HYDROCODONE-ACETAMINOPHEN 5-325 MG TABS 1 tab by mouth every 6 hours as needed for pain HYDROCODONE-ACETAMINOPHEN 60463791065 No Longer Active Tu Landeros MD Active OMEPRAZOLE 20 MG CPDR 1 po q a.m. OMEPRAZOLE 01047036461 Active Tu Landeros MD Active GABAPENTIN 100 MG CAPS 1 po bid GABAPENTIN 19472682069 No Longer Active Tu Landeros MD Active B-12 100 MCG TABS Take one by mouth daily CYANOCOBALAMIN 39836639762 No Longer Active Tu Landeros MD Active GABAPENTIN 100 MG CAPS by mouth twice a day GABAPENTIN 40832607427 Active Tu Landeros MD Active BACTRIM DS 800-160 MG TABS 1 bid x 14 day start 09-28-13 SULFAMETHOXAZOLE-TRIMETHOPRIM 44077371203 No Longer Active Tu Landeros MD Active CARVEDILOL 12.5 MG TABS 1 po BID CARVEDILOL 68038413332 Active Tu Landeros MD Active SUPER B COMPLEX/VITAMIN C TABS 1 qd B COMPLEX-C 54428939501 Active JASPREET Perez Active TRILIPIX 135 MG CPDR 1 q hs CHOLINE FENOFIBRATE 31852061923 Active Tu Landeros MD Active FENOFIBRATE 145 MG TABS 1 po qd FENOFIBRATE 54980749726 No Longer Active JASPREET Perez Active OMEPRAZOLE 20 MG TBEC 1 PO 30 MIN BEFORE 1ST MEAL OMEPRAZOLE 24421785164 No Longer Active JASPREET Perez Active SIMVASTATIN 40 MG TABS Take one by mouth daily SIMVASTATIN 25380409594 No Longer Active JASPREET Perez Active VENLAFAXINE HCL 37.5 MG TABS 1 bid VENLAFAXINE HCL 28476040570 Active Tu Landeros MD Active VENLAFAXINE HCL 75 MG TABS 1 po BID VENLAFAXINE HCL 64050337345 No Longer Active JASPREET Perez Active CIPRO 500 MG TAB 1 tablet by mouth twice daily CIPROFLOXACIN HCL 05312902457 No Longer Active Tu Landeros MD Active VENLAFAXINE HCL 37.5 MG TABS 1 po BID VENLAFAXINE HCL 27329485185 No Longer Active Suze VOGEL Active LAMISIL 250 MG TAB 1 po qd TERBINAFINE HCL 92314714236 No Longer Active Tu Landeros MD Active LORTAB 5 5-500 MG TABS 1/2 to 1 tablet by mouth every 4 hours as needed for pain HYDROCODONE-ACETAMINOPHEN 24418487478 No Longer Active Tu Landeros MD Active ENALAPRIL MALEATE 20 MG TABS 1.5 po qd ENALAPRIL MALEATE 74629841993 Active Tu Landeros MD Active HYDROCODONE-ACETAMINOPHEN 5-500 MG TABS take one po Q 4-6 hours prn HYDROCODONE-ACETAMINOPHEN 93002256081 No Longer Active Tu Landeros MD Active BACTRIM DS 800-160 MG TABS 1 po BID x 7 days SULFAMETHOXAZOLE-TRIMETHOPRIM 99858158189 No Longer Active Tu Landeros MD Active VENLAFAXINE HCL 75 MG TABS 1 po BID VENLAFAXINE HCL 66226437908 No Longer Active Elvira Cervantes MD PhD Active TRAMADOL HCL 50 MG TABS 1 tablets every 6 hours as needed for pain TRAMADOL HCL 57003493153 No Longer Active Tu Landeros MD Active ACCU-CHEK FASTCLIX LANCETS MISC Use to check bloodsugar three times daily as needed LANCETS 71511843593 No Longer Active Tu Landeros MD Active ACCU-CHEK KEYONA PLUS STRP Use for testing bloodsugars three times daily as needed GLUCOSE BLOOD 04681770368 No Longer Active Tu Landeros MD Active ACCU-CHEK KEYONA PLUS W/DEVICE KIT Use for testing bloodsugars three times daily as needed BLOOD GLUCOSE MONITORING SUPPL 33702528340 No Longer Active Tu Landeros MD Active SPIRONOLACTONE 25 MG TAB 0.5 tablet by mouth daily SPIRONOLACTONE 57239823415 No Longer Active Tu Landeros MD Active ALPRAZOLAM 0.5 MG TABS 1 tab every 6hrs as needed ALPRAZOLAM 25600810106 No Longer Active Tu Landeros MD Active AUGMENTIN 875-125 MG TAB 1 tab by mouth twice daily with food AMOXICILLIN-POT CLAVULANATE 40274558788 No Longer Active Tu Landeros MD Active PREDNISONE 20 MG TAB 2 tabs daily for 3 days, 1 tab daily for 3 days, 1/2 tab daily for 2 days PREDNISONE 97031702159 No Longer Active Tu Landeros MD Active XANAX 0.5 MG TABS 1 tablet every 6 hrs prn ALPRAZOLAM 27765091716 No Longer Active Tu Landeros MD Active PREDNISONE 20 MG TAB 2 tabs daily for 3 days, 1 tab daily for 3 days, 1/2 tab daily for 2 days PREDNISONE 86294015812 No Longer Active Tu Landeros MD Active TRIAMCINOLONE ACETONIDE 0.1 % OINT Apply to affected areas TID for up to 2 weeks TRIAMCINOLONE ACETONIDE 67587745301 No Longer Active Tu Landeros MD Active LORTAB 5 5-500 MG TABS 1/2 to 1 tablet by mouth every 4 hours as needed for pain HYDROCODONE-ACETAMINOPHEN 35923933823 No Longer Active Tu Landeros MD Active MULTIVITAMINS TABS Take one by mouth daily MULTIPLE VITAMIN 35625721257 No Longer Active Tu Landeros MD Active MELATONIN 5 MG TABS Take one by mouth daily MELATONIN 46293161030 No Longer Active Tu Landeros MD Active SOMA 350 MG TAB 1 po q 6 hours prn spasm CARISOPRODOL 23949246655 No Longer Active Tu Landeros MD Active MECLIZINE HCL 25 MG CHEW TAB 1 four times a day as needed for dizziness 08/05 MECLIZINE HCL 95666289681 No Longer Active Fab Morales DO Active ANGEL BREEZE 2 TEST DISK test tid prn GLUCOSE BLOOD 29646069953 No Longer Active Negra Scott RN Active REGLAN 10 MG TAB 1 po TID PRN [place] METOCLOPRAMIDE HCL 49392982706 No Longer Active Tu Landeros MD Active METFORMIN HCL 500 MG TABS 1 PO BID METFORMIN HCL 25517725021 No Longer Active Tu Landeros MD Active AMBIEN 10 MG TAB 1 tab by mouth at bedtime as needed for sleep ZOLPIDEM TARTRATE 20240208820 No Longer Active Tu Landeros MD Active FLUOXETINE HCL 40 MG CAPS 1 po q day FLUOXETINE HCL 28202972899 No Longer Active Mayra Terry Active FISH OIL 1000 MG CAPS Take one by mouth daily OMEGA-3 FATTY ACIDS 47109364645 Active Tu Landeros MD Active GLUCOSAMINE 500 MG TABS Take 2 tab po qd GLUCOSAMINE 11848978911 Active Tu Landeros MD Active TRILIPIX 135 MG CPDR 1 po qd CHOLINE FENOFIBRATE 05295711338 No Longer Active Tu Landeros MD Active ASPIRIN 81 MG CHEW TAB 1 tablet by mouth daily ASPIRIN 41223668706 Active Tu Landeros MD Active FUROSEMIDE 40 MG TAB 1 tablet by mouth daily FUROSEMIDE 73105947756 Active Tu Landeros MD Active REQUIP 2 MG TABS Take one tablet at bedtime prn ROPINIROLE HCL 00119551635 Active Tu Landeros MD Active KLOR-CON 10 10 MEQ CR-TABS TAKE 2 TABS DAILY POTASSIUM CHLORIDE 37182161767 Active Tu Landeros MD Active AMBIEN 10 MG TAB 1 tab by mouth at bedtime as needed for sleep AMBIEN 10 MG TAB 942382 ZOLPIDEM TARTRATE Inactive METFORMIN HCL 500 MG TABS 1 PO BID METFORMIN HCL 500 MG TABS 137658 METFORMIN HCL Inactive REGLAN 10 MG TAB 1 po TID PRN Nausea REGLAN 10 MG TAB 866794 METOCLOPRAMIDE HCL Inactive MECLIZINE HCL 25 MG CHEW TAB 1 four times a day as needed for dizziness 08/05 MECLIZINE HCL 25 MG CHEW TAB 235202 MECLIZINE HCL Inactive SOMA 350 MG TAB 1 po q 6 hours prn spasm SOMA 350 MG TAB 530939 CARISOPRODOL Inactive MELATONIN 5 MG TABS Take one by mouth daily MELATONIN 5 MG TABS 059992 MELATONIN Inactive MULTIVITAMINS TABS Take one by mouth daily MULTIVITAMINS TABS MULTIPLE VITAMIN Inactive LORTAB 5 5-500 MG TABS 1/2 to 1 tablet by mouth every 4 hours as needed for pain LORTAB 5 5-500 MG TABS HYDROCODONE- ACETAMINOPHEN Inactive XANAX 0.5 MG TABS 1 tablet every 6 hrs prn XANAX 0.5 MG TABS 960660 ALPRAZOLAM Inactive AUGMENTIN 875-125 MG TAB 1 tab by mouth twice daily with food AUGMENTIN 875-125 MG TAB 158176 AMOXICILLIN-POT CLAVULANATE Inactive ALPRAZOLAM 0.5 MG TABS 1 tab every 6hrs as needed ALPRAZOLAM 0.5 MG TABS 433923 ALPRAZOLAM Inactive SPIRONOLACTONE 25 MG TAB 0.5 tablet by mouth daily SPIRONOLACTONE 25 MG TAB 975378 SPIRONOLACTONE Inactive ACCU-CHEK KEYONA PLUS W/DEVICE KIT Use for testing bloodsugars three times daily as needed ACCU-CHEK KEYONA PLUS W/DEVICE KIT BLOOD GLUCOSE MONITORING SUPPL Inactive ACCU-CHEK KEYONA PLUS STRP Use for testing bloodsugars three times daily as needed ACCU-CHEK KEYONA PLUS STRP GLUCOSE BLOOD Inactive ACCU-CHEK FASTCLIX LANCETS MISC Use to check bloodsugar three times daily as needed ACCU-CHEK FASTCLIX LANCETS MISC 04709841480 LANCETS Inactive TRAMADOL HCL 50 MG TABS 1 tablets every 6 hours as needed for pain TRAMADOL HCL 50 MG TABS 143837 TRAMADOL HCL Inactive VENLAFAXINE HCL 75 MG TABS 1 po BID VENLAFAXINE HCL 75 MG TABS 917671 VENLAFAXINE HCL Inactive HYDROCODONE-ACETAMINOPHEN 5-500 MG TABS take one po Q 4-6 hours prn HYDROCODONE-ACETAMINOPHEN 5-500 MG TABS HYDROCODONE- ACETAMINOPHEN Inactive LORTAB 5 5-500 MG TABS 1/2 to 1 tablet by mouth every 4 hours as needed for pain LORTAB 5 5-500 MG TABS HYDROCODONE- ACETAMINOPHEN Inactive LAMISIL 250 MG TAB 1 po qd LAMISIL 250 MG TAB 778428 TERBINAFINE HCL Inactive VENLAFAXINE HCL 37.5 MG TABS 1 po BID VENLAFAXINE HCL 37.5 MG TABS 958458 VENLAFAXINE HCL Inactive CIPRO 500 MG TAB 1 tablet by mouth twice daily CIPRO 500 MG TAB 862337 CIPROFLOXACIN HCL Inactive VENLAFAXINE HCL 75 MG TABS 1 po BID VENLAFAXINE HCL 75 MG TABS 960666 VENLAFAXINE HCL Inactive SIMVASTATIN 40 MG TABS Take one by mouth daily SIMVASTATIN 40 MG TABS 641132 SIMVASTATIN Inactive OMEPRAZOLE 20 MG TBEC 1 PO 30 MIN BEFORE 1ST MEAL OMEPRAZOLE 20 MG TBEC 909026 OMEPRAZOLE Inactive FENOFIBRATE 145 MG TABS 1 po qd FENOFIBRATE 145 MG TABS 692626 FENOFIBRATE Inactive BACTRIM DS 800-160 MG TABS 1 bid x 14 day start 09-28-13 BACTRIM DS 800-160 MG TABS 811702 SULFAMETHOXAZOLE-TRIMETHOPRIM Inactive B-12 100 MCG TABS Take one by mouth daily B-12 100 MCG TABS CYANOCOBALAMIN Inactive GABAPENTIN 100 MG CAPS 1 po bid GABAPENTIN 100 MG CAPS 180677 GABAPENTIN Inactive HYDROCODONE-ACETAMINOPHEN 5-325 MG TABS 1 tab by mouth every 6 hours as needed for pain HYDROCODONE-ACETAMINOPHEN 5-325 MG TABS 064726 HYDROCODONE-ACETAMINOPHEN Inactive CIPRO 500 MG TABS 1 bid x 14 days start 09-28-13 CIPRO 500 MG TABS 063517 CIPROFLOXACIN HCL Inactive ALIGN 4 MG CAPS [...] as needed DICLOFENAC SODIUM 50 MG TBEC 807731 DICLOFENAC SODIUM Inactive PREDNISONE 20 MG TAB 2 tablets once daily for 2 days, then 1 tablet once daily for 2 days PREDNISONE 20 MG TAB 494530 PREDNISONE Inactive TRUEDRAW LANCING DEVICE MISC Test [...] 2 weeks TRIAMCINOLONE ACETONIDE 0.1 % OINT 5649870 TRIAMCINOLONE ACETONIDE Inactive PREDNISONE 20 MG TAB 2 tabs daily for 3 days, 1 tab daily for 3 days, 1/2 tab daily for 2 days PREDNISONE 20 MG TAB 516330 PREDNISONE Inactive PREDNISONE 20 MG TAB 2 tabs daily for 3 days, 1 tab daily for 3 days, 1/2 tab daily for 2 days PREDNISONE 20 MG TAB 210676 PREDNISONE Inactive BACTRIM DS 800-160 MG TABS 1 po BID x 7 days BACTRIM DS 800-160 MG TABS 078497 SULFAMETHOXAZOLE-TRIMETHOPRIM Inactive ZITHROMAX 250 MG TAB 2 po today, then 1 po q days 2-5 ZITHROMAX 250 MG TAB 8619016 AZITHROMYCIN Inactive Immunizations Vaccine Administration Date Value Standard Description Seasonal influenza vaccine, injectable, containing preservative, for > 3 years old (Afluria, FluLaval, Fluzone, Fluvirin, Fluarix, Agriflu(>=18 yo)) Fluzone (>3 yrs.) [[id number]] Influenza, seasonal, injectable influenza immunization (Flu Vax) has been administered 02/22/2012 influenza virus vaccine, unspecified formulation Seasonal influenza vaccine, injectable, containing preservative, for > 3 years old (Afluria, FluLaval, Fluzone, Fluvirin, Fluarix, Agriflu(>=18 yo)) Fluzone (>3 yrs.) [[id number]] Influenza, seasonal, injectable Vital Signs Date Name [...] CBC - Chemistry sodium, serum 143 mmol/L 241-585 6175/03/10 potassium, serum 4.9 mmol/L 3.5-5.2 chloride, serum [...] MICROALBUMIN - Chemistry sodium, serum 142 mmol/L 624-402 2364/10/08 potassium, serum 4.5 mmol/L 3.5-5.2 chloride, serum [...] 0.30 mg/dL 0.00-1.00 cholesterol, serum 111 mg/dL 235-700 2301/07/28 triglyceride, serum, fasting 177 mg/dL 30-200 HDL [...] Panel - Chemistry cholesterol, serum 124 mg/dL 842-283 5893/01/12 triglyceride, serum, fasting 135 mg/dL 30-200 HDL cholesterol, serum 41 mg/dL 32-96 LDL cholesterol, serum 56 mg/dL 0-130 sodium, serum 140 mmol/L 790-420 9675/01/12 carbon dioxide, venous blood 27.7 mmol/L 21.0-32.0 potassium, serum 4.5 mmol/L 3.5-5.2 chloride, serum 104 mmol/L 98-107 blood glucose 139 mg/dL 65-110 urea nitrogen, blood 16 mg/dL 7-18 alanine aminotransferase (SGPT), serum 32 U/L 12-78 aspartate aminotransferase (SGOT), serum 25 U/L 15-37 calcium, serum 9.1 mg/dL 8.5-10.1 bilirubin, serum, total 0.50 mg/dL 0.00-1.00 Encounters Code Encounter Date Provider Facility CPT-80950 Level 3 Est. Patient 10:06:54 [employer] Miranda Suresh APRN [facility] CPT-03487 Level 4 Est. Patient 13:50:18 [employer] Tu Landeros MD [facility] CPT-03260 Level 3 Est. Patient 10:30:04 CDT Tu Landeros MD [facility] CPT-86614 Level 4 Est. Patient 11:03:38 CDT Tu Landeros MD [facility] CPT-78848 Level 3 Est. Patient 10:20:44 CDT Fab Morales DO [facility] CPT-47996 Level 4 Est. Patient 14:38:57 CDT Tu Landeros MD [facility] CPT-43316 Level 4 Est. Patient 14:27:39 [employer] Tu Landeros MD [facility] CPT-11696 Level 4 Est. Patient 09:45:25 CDT Tu Landeros MD [facility] CPT-27508 Level 4 Est. Patient 09:05:20 [employer]ER Tu Landeros MD [facility] CPT-65805 Level 4 Est. Patient 14:09:06 CDT Tu Landeros MD [facility] CPT-09752 Level 3 Est. Patient 13:36:54 CDT Tu Landeros MD [facility] CPT-75980 Level 3 Est. Patient 08:59:14 CDT Tu Landeros MD [facility] CPT-12435 Level 3 Est. Patient 13:48:35 CDT Fab Morales DO [facility] CPT-73888 Level 4 Est. Patient 10:05:48 CDT Tu Landeros MD [facility] CPT-19213 Level 3 Est. Patient 13:38:42 CDT Marek BANKS [facility] CPT-03741 Level 5 Est. Patient 08:08:39 CDT Jerrica FRANCIS [facility] CPT-95342 Level 4 Est. Patient 14:23:38 CDT Tu Landeros MD [facility] CPT-79858 Level 3 Est. Patient 11:44:04 CDT Tu Landeros MD [facility] CPT-05918 Level 3 Est. Patient 11:03:20 [employer] Tu Landeros MD [facility] CPT-76155 Level 3 Est. Patient 11:03:14 [employer]ER Tu Landeros MD [facility] CPT-02102 Level 3 Est. Patient 12:42:49 CDT Tu Landeros MD [facility] CPT-09423 Level 3 Est. Patient 11:52:06 CDT Tu Landeros MD [facility] CPT-10380 Level 3 Est. Patient 13:58:11 CDT Tu Landeros MD [facility] CPT-19719 Level 3 Est. Patient 17:50:07 CDT Fab Morales DO [facility] CPT-14477 Level 3 Est. Patient 12:06:29 CDT Elvira Cervantes MD PhD [facility] CPT-55370 Level 3 Est. Patient 15:50:32 CDT Tu Landeros MD [facility] CPT-98360 Level 4 Est. Patient 16:08:29 CDT Tu Landeros MD [facility] CPT-36030 Level 3 Est. Patient 16:04:19 CDT Tu Landeros MD [facility] CPT-28859 Level 3 Est. Patient 11:22:30 [employer] Tu Landeros MD [facility] CPT-36833 Level 4 Est. Patient 16:24:02 [employer]ER Tu Landeros MD [facility] CPT-40711 Level 3 Est. Patient 17:21:23 [employer]ER Tu Landeros MD [facility] Procedures Code Procedure Name Date Entry Date Standard Description CPT-90106 Breathing Tx 10:06:54 P[employer]ER CPT-21520 Postop F/U Visit 10:02:45 CDT CPT-LR Lesion Removal 09:02:56 CDT CPT-JTINJ Asp/Joint Injection 15:51:27 [employer]LTRY C[employer]ER CPT-OV Office Visit 15:52:02 P[employer]LTRY C[employer]ER CPT-OV Office Visit 15:45:11 CDT CPT-000 Give Zostavax 14:09:06 CDT CPT-34474 Administration single or combination vaccine inc oral 15 :19:04 CDT CPT-96698 Zoster Vaccine (Zostavax) 15:19:04 CDT CPT-80648 Administration single or combination vaccine inc oral 20 :51:03 CDT CPT-37829 Influenza split virus > age 3 20:51:03 CDT CPT-84405 No Charge Offi Visit 14:52:03 CDT CPT-OV Office Visit 14:57:43 CDT CPT-OV Office Visit 15:22:32 CDT CPT-12031 Administration single or combination vaccine inc oral 11 :33:15 CDT CPT-01329 Influenza split virus > age 3 11:33:15 CDT
--- OUTSIDE RECORDS SUMMARY | 2018-04-25 18:20 | XMS REPORT | Clinical Summary ---
Author Author Admin, SACHI [employer] Address Unknown Phone Unavailable Allergies, Adverse Reactions, [...] apnea (adult) (pediatric) INSOMNIA, PERSISTENT 307.42 Resolved uT Landeros MD Persistent disorder of initiating or [...] Inactive Tu Landeros MD PARESTHESIA ICD-782.0 Inactive uT Landeros MD RASH AND OTHER NONSPECIFIC SKIN [...] 1 po BID PRN Pain DICLOFENAC SODIUM 93404957797 Active Tu Landeros MD Active GABAPENTIN 100 MG CAPS 1 po TID GABAPENTIN 75112783429 Active Tu Landeros MD Active DICLOFENAC SODIUM 50 MG ORAL TBEC 1 po BID PRN Pain DICLOFENAC SODIUM 14805182287 No Longer Active Tu Landeros MD Active CYCLOBENZAPRINE HCL 10 MG ORAL TABS 1 po TID PRN Muscle Spasm CYCLOBENZAPRINE HCL 94479676721 No Longer Active Tu Landeros MD Active INVOKANA 100 MG ORAL TABS 1 po qd CANAGLIFLOZIN 40869157559 Active Tu Landeros MD Active GLIPIZIDE 5 MG ORAL TABS 1 po qd GLIPIZIDE 71262726969 No Longer Active Tu Landeros MD Active VENLAFAXINE HCL 75 MG ORAL TABS 1 po BID VENLAFAXINE HCL 77413321300 Active Tu Landeros MD Active GLIMEPIRIDE 1 MG ORAL TABS 1 po qd GLIMEPIRIDE 66369038479 No Longer Active Tu Landeros MD Active TRUE METRIX BLOOD GLUCOSE TEST INVITR STRP Test blood sugar BID Dx: E11.9 GLUCOSE BLOOD 20281960824 Active Tu Landeros MD Active TRUE METRIX AIR GLUCOSE METER W/DEVICE KIT Test blood glucose BID Dx: E11.9 BLOOD GLUCOSE MONITORING SUPPL 90129938359 Active Tu Landeros MD Active TRUETEST TEST INVITR STRP test blood sugar twice daily. DX 250.0 GLUCOSE BLOOD 80437944010 No Longer Active Mirna Stanley LPN Active TRUEDRAW LANCING DEVICE MISC test blood sugar twice daily dx: 250.00 LANCET DEVICES 02937372689 No Longer Active Mirna Stanley LPN Active ENALAPRIL MALEATE 20 MG TABS 2 po qd ENALAPRIL MALEATE 35109841656 Active Lesli Kellogg APRN Active SUPER B COMPLEX/VITAMIN C TABS 1 qd B COMPLEX-C 22126011111 No Longer Active Tu Landeros MD Active ASPIRIN EC 81 MG ORAL TBEC 1 po qd ASPIRIN 69870528549 Active Tu Landeros MD Active GLUCOSAMINE 500 MG TABS 2 po qd GLUCOSAMINE Active Tu Landeros MD Active SIMVASTATIN 40 MG TABS 0.5 po qHS SIMVASTATIN 13100419713 Active Tu Landeros MD Active FISH OIL 1000 MG CAPS 1 po qd OMEGA-3 FATTY ACIDS 70969390942 Active Tu Landeros MD Active METFORMIN HCL 1000 MG TABS 1 po BID METFORMIN HCL 35702864207 Active Tu Landeros MD Active KLOR-CON 10 10 MEQ CR-TABS 2 po qd POTASSIUM CHLORIDE 78382481770 Active Tu Landeros MD Active FUROSEMIDE 40 MG TAB 1 po qd FUROSEMIDE 52326994889 Active Tu Landeros MD Active REQUIP 2 MG ORAL TABS 1 po qHS PRN Restless legs ROPINIROLE HCL 45046915276 Active Tu Landeros MD Active REQUIP 2 MG TABS Take one tablet at bedtime prn ROPINIROLE HCL 80942824728 No Longer Active Tu Landeros MD Active VENTOLIN HFA 108 (90 BASE) MCG/ACT AERS 1-2 puffs every 4 hours if needed for cough/congestion ALBUTEROL SULFATE 72071066855 No Longer Active Ambika Aden APRN Active ZITHROMAX 250 MG TAB 2 po today, then 1 po q days 2-5 AZITHROMYCIN 43200039831 No Longer Active Miranda Suresh APRN Active FLONASE 50 MCG/ACT SUSP 1 spray each nostril twice daily until bottle empty FLUTICASONE PROPIONATE 70100995560 No Longer Active Tu Landeros MD Active COLACE 100 MG CAP 1 po BID PRN Constipation DOCUSATE SODIUM 23052384221 Active Tu Landeros MD Active TRUERESULT BLOOD GLUCOSE W/DEVICE KIT test blood sugar twice daily dx 250.00 BLOOD GLUCOSE MONITORING SUPPL 79209487782 No Longer Active Tu Landeros MD Active TRUEDRAW LANCING DEVICE MISC Test twice a day dx 250.0 LANCET DEVICES 38175819080 No Longer Active Tu Landeros MD Active PREDNISONE 20 MG TAB 2 tablets once daily for 2 days, then 1 tablet once daily for 2 days PREDNISONE 32634115678 No Longer Active Tu Landeros MD Active DICLOFENAC SODIUM 50 MG TBEC 1 tablet by mouth three times a day as needed DICLOFENAC SODIUM 78343445280 No Longer Active Fab Morales DO Active EMBRACE BLOOD GLUCOSE TEST STRP test blood sugar twice daily DX 250.0 2014 GLUCOSE BLOOD 10435251020 No Longer Active Tu Landeros MD Active TRUETEST TEST STRP test blood sugar three times daily dx: 250.00 GLUCOSE BLOOD 39812665737 No Longer Active Suze Nicole RMMahendra Active TRUERESULT BLOOD GLUCOSE W/DEVICE KIT use to test blood sugar tid dx: 250.00 BLOOD GLUCOSE MONITORING SUPPL 40188092604 No Longer Active Suze Corey RMA Active ALIGN 4 MG CAPS 1 tid PROBIOTIC PRODUCT 06478484934 No Longer Active Shaun Sy MD Active CIPRO 500 MG TABS 1 bid x 14 days start 09-28-13 CIPROFLOXACIN HCL 77569486250 No Longer Active Shaun Sy MD Active TRAMADOL HCL 50 MG TABS 1-2 tablets every 6 hours as needed for pain TRAMADOL HCL 00204566165 Active Tu Landeros MD Active HYDROCODONE-ACETAMINOPHEN 5-325 MG TABS 1 tab by mouth every 6 hours as needed for pain HYDROCODONE-ACETAMINOPHEN 61438480864 No Longer Active Tu Landeros MD Active OMEPRAZOLE 20 MG CPDR 1 po q a.m. OMEPRAZOLE 21244004277 Active Fab Morales DO Active GABAPENTIN 100 MG CAPS 1 po bid GABAPENTIN 64992591108 No Longer Active Tu Landeros MD Active B-12 100 MCG TABS Take one by mouth daily CYANOCOBALAMIN 07413430600 No Longer Active Tu Landeros MD Active BACTRIM DS 800-160 MG TABS 1 bid x 14 day start 09-28-13 SULFAMETHOXAZOLE-TRIMETHOPRIM 92668123472 No Longer Active uT Landeros MD Active CARVEDILOL 12.5 MG TABS 1 po BID CARVEDILOL 53523040719 Active Lesli Kellogg APRN Active TRILIPIX 135 MG CPDR 1 q hs CHOLINE FENOFIBRATE 94485941745 Active Tu Landeros MD Active FENOFIBRATE 145 MG TABS 1 po qd FENOFIBRATE 75800090443 No Longer Active JASPREET Perez Active OMEPRAZOLE 20 MG TBEC 1 PO 30 MIN BEFORE 1ST MEAL OMEPRAZOLE 31120705046 No Longer Active JASPREET Perez Active SIMVASTATIN 40 MG TABS Take one by mouth daily SIMVASTATIN 78751232470 No Longer Active JASPREET Perez Active VENLAFAXINE HCL 75 MG TABS 1 po BID VENLAFAXINE HCL 28238659923 No Longer Active JASPREET Perez Active CIPRO 500 MG TAB 1 tablet by mouth twice daily CIPROFLOXACIN HCL 67099561193 No Longer Active Tu Landeros MD Active VENLAFAXINE HCL 37.5 MG TABS 1 po BID VENLAFAXINE HCL 00262101613 No Longer Active Suzebianca Nicole RMA Active LAMISIL 250 MG TAB 1 po qd TERBINAFINE HCL 51209107081 No Longer Active Tu Landeros MD Active LORTAB 5 5-500 MG TABS 1/2 to 1 tablet by mouth every 4 hours as needed for pain HYDROCODONE-ACETAMINOPHEN 23815106307 No Longer Active Tu Landeros MD Active HYDROCODONE-ACETAMINOPHEN 5-500 MG TABS take one po Q 4-6 hours prn HYDROCODONE-ACETAMINOPHEN 77932118614 No Longer Active Tu Landeros MD Active BACTRIM DS 800-160 MG TABS 1 po BID x 7 days SULFAMETHOXAZOLE-TRIMETHOPRIM 99642054249 No Longer Active Tu Landeros MD Active VENLAFAXINE HCL 75 MG TABS 1 po BID VENLAFAXINE HCL 35204792501 No Longer Active Elvira Cervantes MD PhD Active TRAMADOL HCL 50 MG TABS 1 tablets every 6 hours as needed for pain TRAMADOL HCL 87476567079 No Longer Active Tu Landeros MD Active ACCU-CHEK FASTCLIX LANCETS MISC Use to check bloodsugar three times daily as needed LANCETS 56000065369 No Longer Active Tu Landeros MD Active ACCU-CHEK KEYONA PLUS STRP Use for testing bloodsugars three times daily as needed GLUCOSE BLOOD 84912996694 No Longer Active Tu Landeros MD Active ACCU-CHEK KEYONA PLUS W/DEVICE KIT Use for testing bloodsugars three times daily as needed BLOOD GLUCOSE MONITORING SUPPL 63985979517 No Longer Active Tu Landeros MD Active SPIRONOLACTONE 25 MG TAB 0.5 tablet by mouth daily SPIRONOLACTONE 46293573381 No Longer Active Tu Landeros MD Active ALPRAZOLAM 0.5 MG TABS 1 tab every 6hrs as needed ALPRAZOLAM 31243384395 No Longer Active Tu Landeros MD Active AUGMENTIN 875-125 MG TAB 1 tab by mouth twice daily with food AMOXICILLIN-POT CLAVULANATE 04218510721 No Longer Active Tu Landeros MD Active PREDNISONE 20 MG TAB 2 tabs daily for 3 days, 1 tab daily for 3 days, 1/2 tab daily for 2 days PREDNISONE 42333039099 No Longer Active Tu Landeros MD Active XANAX 0.5 MG TABS 1 tablet every 6 hrs prn ALPRAZOLAM 79816714969 No Longer Active Tu Landeros MD Active PREDNISONE 20 MG TAB 2 tabs daily for 3 days, 1 tab daily for 3 days, 1/2 tab daily for 2 days PREDNISONE 44585444266 No Longer Active Tu Landeros MD Active TRIAMCINOLONE ACETONIDE 0.1 % OINT Apply to affected areas TID for up to 2 weeks TRIAMCINOLONE ACETONIDE 18995792938 No Longer Active Tu Landeros MD Active LORTAB 5 5-500 MG TABS 1/2 to 1 tablet by mouth every 4 hours as needed for pain HYDROCODONE-ACETAMINOPHEN 17323615465 No Longer Active Tu Landeros MD Active MULTIVITAMINS TABS Take one by mouth daily MULTIPLE VITAMIN 85626445590 No Longer Active Tu Landeros MD Active MELATONIN 5 MG TABS Take one by mouth daily MELATONIN 23309651106 No Longer Active Tu Landeros MD Active SOMA 350 MG TAB 1 po q 6 hours prn spasm CARISOPRODOL 69004847690 No Longer Active Tu Landeros MD Active MECLIZINE HCL 25 MG CHEW TAB 1 four times a day as needed for dizziness 08/05 MECLIZINE HCL 52594642350 No Longer Active Fab Morales DO Active ANGEL BREEZE 2 TEST DISK test tid prn GLUCOSE BLOOD 68914420947 No Longer Active Negra Scott RN Active REGLAN 10 MG TAB 1 po TID PRN Nausea METOCLOPRAMIDE HCL 98105014023 No Longer Active Tu Landeros MD Active METFORMIN HCL 500 MG TABS 1 PO BID METFORMIN HCL 95595054290 No Longer Active Tu Landeros MD Active AMBIEN 10 MG TAB 1 tab by mouth at bedtime as needed for sleep ZOLPIDEM TARTRATE 03590724068 No Longer Active Tu Landeros MD Active FLUOXETINE HCL 40 MG CAPS 1 po q day FLUOXETINE HCL 13232080907 No Longer Active Mayra Terry Active TRILIPIX 135 MG CPDR 1 po qd CHOLINE FENOFIBRATE 24994059824 No Longer Active Tu Landeros MD Active AMBIEN 10 MG TAB 1 tab by mouth at bedtime as needed for sleep AMBIEN 10 MG TAB 725674 ZOLPIDEM TARTRATE Inactive METFORMIN HCL 500 MG TABS 1 PO BID METFORMIN HCL 500 MG TABS 078455 METFORMIN HCL Inactive REGLAN 10 MG TAB 1 po TID PRN Nausea REGLAN 10 MG TAB 621675 METOCLOPRAMIDE HCL Inactive MECLIZINE HCL 25 MG CHEW TAB 1 four times a day as needed for dizziness 08/05 MECLIZINE HCL 25 MG CHEW TAB 255819 MECLIZINE HCL Inactive SOMA 350 MG TAB 1 po q 6 hours prn spasm SOMA 350 MG TAB 441722 CARISOPRODOL Inactive MELATONIN 5 MG TABS Take one by mouth daily MELATONIN 5 MG TABS 923117 MELATONIN Inactive MULTIVITAMINS TABS Take one by mouth daily MULTIVITAMINS TABS MULTIPLE VITAMIN Inactive LORTAB 5 5-500 MG TABS 1/2 to 1 tablet by mouth every 4 hours as needed for pain LORTAB 5 5-500 MG TABS 543658 HYDROCODONE- ACETAMINOPHEN Inactive XANAX 0.5 MG TABS 1 tablet every 6 hrs prn XANAX 0.5 MG TABS 516014 ALPRAZOLAM Inactive AUGMENTIN 875-125 MG TAB 1 tab by mouth twice daily with food AUGMENTIN 875-125 MG TAB 938392 AMOXICILLIN-POT CLAVULANATE Inactive ALPRAZOLAM 0.5 MG TABS 1 tab every 6hrs as needed ALPRAZOLAM 0.5 MG TABS 957366 ALPRAZOLAM Inactive SPIRONOLACTONE 25 MG TAB 0.5 tablet by mouth daily SPIRONOLACTONE 25 MG TAB 046599 SPIRONOLACTONE Inactive ACCU-CHEK KEYONA PLUS W/DEVICE KIT Use for testing bloodsugars three times daily as needed ACCU-CHEK KEYONA PLUS W/DEVICE KIT BLOOD GLUCOSE MONITORING SUPPL Inactive ACCU-CHEK KEYONA PLUS STRP Use for testing bloodsugars three times daily as needed ACCU-CHEK KEYONA PLUS STRP GLUCOSE BLOOD Inactive ACCU-CHEK FASTCLIX LANCETS MISC Use to check bloodsugar three times daily as needed ACCU-CHEK FASTCLIX LANCETS MISC 43540750355 LANCETS Inactive TRAMADOL HCL 50 MG TABS 1 tablets every 6 hours as needed for pain TRAMADOL HCL 50 MG TABS 037148 TRAMADOL HCL Inactive VENLAFAXINE HCL 75 MG TABS 1 po BID VENLAFAXINE HCL 75 MG TABS 391557 VENLAFAXINE HCL Inactive HYDROCODONE-ACETAMINOPHEN 5-500 MG TABS take one po Q 4-6 hours prn HYDROCODONE-ACETAMINOPHEN 5-500 MG TABS 249473 HYDROCODONE- ACETAMINOPHEN Inactive LORTAB 5 5-500 MG TABS 1/2 to 1 tablet by mouth every 4 hours as needed for pain LORTAB 5 5-500 MG TABS 844746 HYDROCODONE- ACETAMINOPHEN Inactive LAMISIL 250 MG TAB 1 po qd LAMISIL 250 MG TAB 119227 TERBINAFINE HCL Inactive VENLAFAXINE HCL 37.5 MG TABS 1 po BID VENLAFAXINE HCL 37.5 MG TABS 177479 VENLAFAXINE HCL Inactive CIPRO 500 MG TAB 1 tablet by mouth twice daily CIPRO 500 MG TAB 953021 CIPROFLOXACIN HCL Inactive VENLAFAXINE HCL 75 MG TABS 1 po BID VENLAFAXINE HCL 75 MG TABS 177738 VENLAFAXINE HCL Inactive SIMVASTATIN 40 MG TABS Take one by mouth daily SIMVASTATIN 40 MG TABS 505426 SIMVASTATIN Inactive OMEPRAZOLE 20 MG TBEC 1 PO 30 MIN BEFORE 1ST MEAL OMEPRAZOLE 20 MG TBEC 209623 OMEPRAZOLE Inactive FENOFIBRATE 145 MG TABS 1 po qd FENOFIBRATE 145 MG TABS 373020 FENOFIBRATE Inactive BACTRIM DS 800-160 MG TABS 1 bid x 14 day start 09-28-13 BACTRIM DS 800-160 MG TABS 022192 SULFAMETHOXAZOLE-TRIMETHOPRIM Inactive B-12 100 MCG TABS Take one by mouth daily B-12 100 MCG TABS CYANOCOBALAMIN Inactive GABAPENTIN 100 MG CAPS 1 po bid GABAPENTIN 100 MG CAPS 738716 GABAPENTIN Inactive HYDROCODONE-ACETAMINOPHEN 5-325 MG TABS 1 tab by mouth every 6 hours as needed for pain HYDROCODONE-ACETAMINOPHEN 5-325 MG TABS 210165 HYDROCODONE-ACETAMINOPHEN Inactive CIPRO 500 MG TABS 1 bid x 14 days start 09-28-13 CIPRO 500 MG TABS 981113 CIPROFLOXACIN HCL Inactive ALIGN 4 MG CAPS [...] as needed DICLOFENAC SODIUM 50 MG TBEC 766637 DICLOFENAC SODIUM Inactive PREDNISONE 20 MG TAB 2 tablets once daily for 2 days, then 1 tablet once daily for 2 days PREDNISONE 20 MG TAB 697008 PREDNISONE Inactive TRUEDRAW LANCING DEVICE MISC Test twice a day dx 250.0 TRUEDRAW LANCING DEVICE MISC LANCET DEVICES Inactive TRUERESULT BLOOD GLUCOSE W/DEVICE KIT test blood sugar twice daily dx 250.00 TRUERESULT BLOOD GLUCOSE W/DEVICE KIT BLOOD GLUCOSE MONITORING SUPPL Inactive FLONASE 50 MCG/ACT SUSP 1 spray each nostril twice daily until bottle empty FLONASE 50 MCG/ACT SUSP 5917690 FLUTICASONE PROPIONATE Inactive VENTOLIN HFA 108 (90 BASE) MCG/ACT AERS 1-2 puffs every 4 hours if needed for cough/congestion VENTOLIN HFA 108 (90 BASE) MCG/ACT AERS ALBUTEROL SULFATE Inactive REQUIP 2 MG TABS Take one tablet at bedtime prn REQUIP 2 MG TABS 364733 ROPINIROLE HCL Inactive SUPER B COMPLEX/VITAMIN C TABS 1 qd SUPER B COMPLEX/ VITAMIN C TABS 97274634618 B COMPLEX-C Inactive TRUEDRAW LANCING DEVICE MISC test blood sugar twice daily dx: 250.00 TRUEDRAW LANCING DEVICE MISC LANCET DEVICES Inactive TRUETEST TEST INVITR STRP test blood sugar twice daily. DX 250.0 TRUETEST TEST INVITR STRP GLUCOSE BLOOD Inactive CYCLOBENZAPRINE HCL 10 MG ORAL TABS 1 po TID PRN Muscle Spasm CYCLOBENZAPRINE HCL 10 MG ORAL TABS 084961 CYCLOBENZAPRINE HCL Inactive DICLOFENAC SODIUM 50 MG ORAL TBEC 1 po BID PRN Pain DICLOFENAC SODIUM 50 MG ORAL TBEC 460365 DICLOFENAC SODIUM Inactive TRIAMCINOLONE ACETONIDE 0.1 % OINT Apply to affected areas TID for up to 2 weeks TRIAMCINOLONE ACETONIDE 0.1 % OINT 9404855 TRIAMCINOLONE ACETONIDE Inactive PREDNISONE 20 MG TAB 2 tabs daily for 3 days, 1 tab daily for 3 days, 1/2 tab daily for 2 days PREDNISONE 20 MG TAB 637596 PREDNISONE Inactive PREDNISONE 20 MG TAB 2 tabs daily for 3 days, 1 tab daily for 3 days, 1/2 tab daily for 2 days PREDNISONE 20 MG TAB 037941 PREDNISONE Inactive BACTRIM DS 800-160 MG TABS 1 po BID x 7 days BACTRIM DS 800-160 MG TABS 220511 SULFAMETHOXAZOLE-TRIMETHOPRIM Inactive ZITHROMAX 250 MG TAB 2 po today, then 1 po q days 2-5 ZITHROMAX 250 MG TAB 842324 AZITHROMYCIN Inactive Advance Directives Directive Description Start Date DISCUSSED WITH PATIENT -- NO DECISION MADE Immunizations Vaccine Administration Date Value Standard Description Seasonal influenza vaccine, injectable, containing preservative, for > 3 years old (Afluria, FluLaval, Fluzone, Fluvirin, Fluarix, Agriflu(>=18 yo)) Fluzone (>3 yrs.) [[id number]] Influenza, seasonal, injectable influenza immunization (Flu Vax) has been administered 02/22/2012 influenza virus vaccine, unspecified formulation Seasonal influenza vaccine, injectable, containing preservative, for > 3 years old (Afluria, FluLaval, Fluzone, Fluvirin, Fluarix, Agriflu(>=18 yo)) Fluzone (>3 yrs.) [[id number]] Influenza, seasonal, injectable Vital Signs Date Name [...] Magnesium - Chemistry sodium, serum 143 mmol/L 376-735 7989/01/10 carbon dioxide, venous blood 28.0 mmol/L 21.0-32.0 potassium, serum 4.5 mmol/L 3.5-5.2 chloride, serum 104 mmol/L 98-107 blood glucose 158 mg/dL 65-110 urea nitrogen, blood 23 mg/dL 7-18 creatinine, serum 1.06 mg/dL 0.55-1.30 alanine aminotransferase (SGPT), serum 42 U/L 12-78 aspartate aminotransferase (SGOT), serum 32 U/L 15-37 calcium, serum 9.3 mg/dL 8.5-10.1 bilirubin, serum, total 0.20 mg/dL 0.00-1.00 cholesterol, serum 177 mg/dL 035-434 3164/01/10 triglyceride, serum, fasting 320 mg/dL 30-200 HDL cholesterol, serum 46 mg/dL 32-96 LDL cholesterol, serum 67 mg/dL 0-130 Lab Report: COMPREHENSIVE METABOLIC PANEL, LIPID PANEL, HEMOGLOBIN A1c - Chemistry cholesterol, serum 135 mg/dL 031-284 4768/05/17 HDL cholesterol, serum 41 mg/dL > OR=46 [...] <30 Encounters Code Encounter Date Provider Facility CPT-24625 Level 3 Est. Patient 14:20:36 CDT Tu Landeros MD [facility] CPT-78998 Level 4 Est. Patient 14:28:34 CDT Tu Landeros MD [facility] CPT-88031 Level 3 Est. Patient 13:33:09 CDT Tu Landeros MD [facility] CPT-60440 Level 4 Est. Patient 14:29:21 CDT Tu Landeros MD [facility] CPT-82778 Level 4 Est. Patient 09:08:17 HAT BINDER Tu Landeros MD [facility] CPT-86187 Level 4 Est. Patient 14:40:19 CDT Tu Landeros MD [facility] CPT-55532 Level 4 Est. Patient 14:06:04 HAT BINDER Tu Landeros MD [facility] CPT-31143 Level 3 Est. Patient 14:05:18 HAT BINDER Tu Landeros MD [facility] CPT-75819 Level 3 Est. Patient 10:06:54 HAT BINDER Miranda Suresh APRN [facility] CPT-79947 Level 4 Est. Patient 13:50:18 HAT BINDER [facility] Level 3 Est. Patient 10:30:04 CDT Tu Landeros MD [facility] CPT-14786 Level 4 Est. Patient 11:03:38 CDT Tu Landeros MD [facility] CPT-68895 Level 3 Est. Patient 10:20:44 CDT Fab Morales DO [facility] CPT-98376 Level 4 Est. Patient 14:38:57 CDT Tu Landeros MD [facility] CPT-88091 Level 4 Est. Patient 14:27:39 HAT BINDER Tu Landeros MD [facility] CPT-57515 Level 4 Est. Patient 09:45:25 CDT Tu Landeros MD [facility] CPT-96869 Level 4 Est. Patient 09:05:20 HAT BINDER Tu Landeros MD [facility] CPT-75237 Level 4 Est. Patient 14:09:06 CDT Tu Landeros MD [facility] CPT-48348 Level 3 Est. Patient 13:36:54 CDT Tu Landeros MD [facility] CPT-34962 Level 3 Est. Patient 08:59:14 CDT Tu Landeros MD [facility] CPT-45009 Level 3 Est. Patient 13:48:35 CDT Fab Morales DO [facility] CPT-71325 Level 4 Est. Patient 10:05:48 CDT Tu Landeros MD [facility] CPT-07218 Level 3 Est. Patient 13:38:42 CDT Marek BANKS [facility] CPT-16095 Level 5 Est. Patient 08:08:39 CDT Jerrica FRANCIS [facility] CPT-61910 Level 4 Est. Patient 14:23:38 CDT Tu Landeros MD [facility] CPT-83359 Level 3 Est. Patient 11:44:04 CDT Tu Landeros MD [facility] CPT-34059 Level 3 Est. Patient 11:03:20 HAT BINDER Tu Landeros MD [facility] CPT-00956 Level 3 Est. Patient 11:03:14 HAT BINDER Tu Landeros MD [facility] CPT-70858 Level 3 Est. Patient 12:42:49 CDT Tu Landeros MD [facility] CPT-76908 Level 3 Est. Patient 11:52:06 CDT Tu Landeros MD [facility] CPT-10409 Level 3 Est. Patient 13:58:11 CDT Tu Landeros MD [facility] CPT-64499 Level 3 Est. Patient 17:50:07 CDT Fab Morales DO [facility] CPT-50552 Level 3 Est. Patient 12:06:29 CDT Elvira Cervantes MD, PhD [facility] CPT-87860 Level 3 Est. Patient 15:50:32 CDT Tu Landeros MD [facility] CPT-90508 Level 4 Est. Patient 16:08:29 CDT Tu Landeros MD [facility] CPT-60329 Level 3 Est. Patient 16:04:19 CDT Tu Landeros MD [facility] CPT-14844 Level 3 Est. Patient 11:22:30 HAT BINDER Tu Landeros MD [facility] CPT-33703 Level 4 Est. Patient 16:24:02 HAT BINDER Tu Landeros MD [facility] CPT-09477 Level 3 Est. Patient 17:21:23 HAT BINDER Tu Landeros MD [facility] Procedures Code Procedure Name Date Entry Date Standard Description CPT-41122 Shoulder, right, comp min 2V - XRAY USE ONLY 13:50:22 CDT CPT-G0009 Administration of Pneumococcal Vaccine 15:08:26 CDT CPT-63453 Prevnar 13 Intramuscular Suspension 15:08:26 CDT 10/08 CPT-G0439 Subsequent Annual Wellness Exam 14:29:22 CDT CPT-52279 Venipuncture Draw Fee 13:15:35 CDT CPT-32028 Magnesium - LAB USE ONLY 11:14:20 HAT BINDER CPT-69100 Lipid - LAB USE ONLY 11:14:20 HAT BINDER CPT-24954 HGBA1C - LAB USE ONLY 11:14:20 HAT BINDER CPT-48128 CMP - LAB USE ONLY 11:14:19 HAT BINDER CPT-81614 CBC - LAB USE ONLY 11:14:19 HAT BINDER CPT-23025 Venipuncture Draw Fee 11:14:18 HAT BINDER CPT-56721 First Vx - Ix admin for Medicare patients 16:46:52 CDT CPT-10784 Fluzone Preservative Free Intramuscular Suspension 16:46 :51 CDT CPT-84711 CBC - LAB USE ONLY 17:14:46 CDT CPT-78045 HGBA1C - LAB USE ONLY 17:14:46 CDT CPT-31510 Venipuncture Draw Fee 17:14:46 CDT CPT-G0438 Initial Annual Wellness Exam 14:13:04 CDT CPT-22867 Breathing Tx 10:06:54 HAT BINDER CPT-53478 Postop F/U Visit 10:02:45 CDT CPT-LR Lesion Removal 09:02:56 CDT CPT-JTINJ Asp/Joint Injection 15:51:27 HAT BINDER CPT-OV Office Visit 15:52:02 HAT BINDER CPT-OV Office Visit 15:45:11 CDT CPT-000 Give Zostavax 14:09:06 CDT CPT-85663 Administration single or combination vaccine inc oral 15 :19:04 CDT CPT-67009 Zoster Vaccine (Zostavax) 15:19:04 CDT CPT-15113 Administration single or combination vaccine inc oral 20 :51:03 CDT CPT-29192 Influenza split virus > age 3 20:51:03 CDT CPT-55651 No Charge Offi Visit 14:52:03 CDT CPT-OV Office Visit 14:57:43 CDT CPT-OV Office Visit 15:22:32 CDT CPT-01913 Administration single or combination vaccine inc oral 11 :33:15 CDT CPT-18005 Influenza split virus > age 3 11:33:15 CDT
--- OUTSIDE RECORDS SUMMARY | 2018-04-25 18:21 | XMS REPORT | Clinical Summary ---
Author Author Admin, SACHI Clemons [facility] Address Unknown Phone Unavailable Allergies, Adverse [...] POSITIONAL VERTIGO ICD-386.11 Inactive Tu Landeros MD CARPAL TUNNEL SYNDROME ICD-354.0 Tessa Landeros MD ARTHRITIS ICD-716.90 Inactive Tu Landeros MD KNEE PAIN ICD-719.46 Inactive Tu Landeros MD LEG CRAMPS, NOCTURNAL ICD-729.82 Tessa Landeros MD PRESSURE ULCER UNSPECIFIED SITE ICD-707.00 Inactive Tu Landeros MD LOCALIZED SUPERFICIAL SWELLING MASS OR LUMP ICD-782.2 Tessa Landeros MD FATIGUE ICD-780.79 Inactive Tu Landeros MD 2012 ONYCHOMYCOSIS ICD-110.1 Tessa Landeros MD Open wound of abdominal wall, anterior, complicated ICD-879.3 Inactive Tu Landeros MD Upper respiratory infection, viral ICD-465.9 Tessa Sy MD Open wound of other and unspecified parts of trunk, complicated ICD-879.7 Tessa Landeros MD Knee pain, left, acute ICD-719.46 Tessa Landeros MD Ear pain, bilateral ICD-388.70 Tessa Landeros MD CONTUSION OF UNSPECIFIED SITE ICD-924.9 Tessa Landeros MD Hot flashes ICD-627.2 Tessa Landeros MD Sebaceous cyst ICD-706.2 Tessa Landeros MD Medication List Medication Instructions Start Date Stop Date Generic Name NDC Status Provider Patient Instruction METFORMIN HCL 1000 MG TABS 1 tablet by mouth twice daily METFORMIN HCL 32351742967 Active Tu Landeros MD Active FLONASE 50 MCG/ACT SUSP 1 spray each nostril twice daily until bottle empty FLUTICASONE PROPIONATE 20183698500 No Longer Active Tu Landeros MD Active COLACE 100 MG CAP 1 po BID PRN Constipation DOCUSATE SODIUM 74794534621 Active Tu Landeros MD Active SIMVASTATIN 40 MG TABS 0.5 tab daily at bedtime SIMVASTATIN 61942389153 Active Tu Landeros MD Active TRUERESULT BLOOD GLUCOSE W/DEVICE KIT test blood sugar twice daily dx 250.00 BLOOD GLUCOSE MONITORING SUPPL 41362943800 No Longer Active Tu Landeros MD Active TRUEDRAW LANCING DEVICE MISC Test twice a day dx 250.0 LANCET DEVICES 47266457891 No Longer Active Tu Landeros MD Active PREDNISONE 20 MG TAB 2 tablets once daily for 2 days, then 1 tablet once daily for 2 days PREDNISONE 10096794646 No Longer Active Tu Landeros MD Active DICLOFENAC SODIUM 50 MG TBEC 1 tablet by mouth three times a day as needed DICLOFENAC SODIUM 94405233309 No Longer Active Fab Morales DO Active TRUEDRAW LANCING DEVICE MISC test blood sugar twice daily dx: 250.00 LANCET DEVICES 87541460016 Active Tu Landeros MD Active TRUETEST TEST INVITR STRP test blood sugar twice daily. DX 250.0 GLUCOSE BLOOD 09375108446 Active Tu Landeros MD Active EMBRACE BLOOD GLUCOSE TEST STRP test blood sugar twice daily DX 250.0 2014 GLUCOSE BLOOD 54851829166 No Longer Active Tu Landeros MD Active TRUETEST TEST STRP test blood sugar three times daily dx: 250.00 GLUCOSE BLOOD 76890742130 No Longer Active Suze VOGEL Active TRUERESULT BLOOD GLUCOSE W/DEVICE KIT use to test blood sugar tid dx: 250.00 BLOOD GLUCOSE MONITORING SUPPL 27705986324 No Longer Active Suze Nicole RMA Active ALIGN 4 MG CAPS 1 tid PROBIOTIC PRODUCT 62961104099 No Longer Active Shaun Sy MD Active CIPRO 500 MG TABS 1 bid x 14 days start 09-28-13 CIPROFLOXACIN HCL 89327651396 No Longer Active Shaun Sy MD Active TRAMADOL HCL 50 MG TABS 1-2 tablets every 6 hours as needed for pain TRAMADOL HCL 45726341700 Active Tu Landeros MD Active HYDROCODONE-ACETAMINOPHEN 5-325 MG TABS 1 tab by mouth every 6 hours as needed for pain HYDROCODONE-ACETAMINOPHEN 19460469269 No Longer Active Tu Landeros MD Active OMEPRAZOLE 20 MG CPDR 1 po q a.m. OMEPRAZOLE 61544471418 Active Tu Landeros MD Active GABAPENTIN 100 MG CAPS 1 po bid GABAPENTIN 89246340849 No Longer Active Tu Landeros MD Active B-12 100 MCG TABS Take one by mouth daily CYANOCOBALAMIN 83314923009 No Longer Active Tu Landeros MD Active GABAPENTIN 100 MG CAPS by mouth twice a day GABAPENTIN 73100570586 Active Tu Landeros MD Active BACTRIM DS 800-160 MG TABS 1 bid x 14 day start 09-28-13 SULFAMETHOXAZOLE-TRIMETHOPRIM 02174136913 No Longer Active Tu Landeros MD Active CARVEDILOL 12.5 MG TABS 1 po BID CARVEDILOL 94898918888 Active Tu Landeros MD Active SUPER B COMPLEX/VITAMIN C TABS 1 qd B COMPLEX-C 86439335693 Active JASPREET Perez Active TRILIPIX 135 MG CPDR 1 q hs CHOLINE FENOFIBRATE 43954755959 Active Tu Landeros MD Active FENOFIBRATE 145 MG TABS 1 po qd FENOFIBRATE 81633294146 No Longer Active JASPREET Perez Active OMEPRAZOLE 20 MG TBEC 1 PO 30 MIN BEFORE 1ST MEAL OMEPRAZOLE 61275071165 No Longer Active JASPREET Perez Active SIMVASTATIN 40 MG TABS Take one by mouth daily SIMVASTATIN 27041176346 No Longer Active Gustavo JASPREET Green Active VENLAFAXINE HCL 37.5 MG TABS 1 bid VENLAFAXINE HCL 82947570829 Active Tu Landeros MD Active VENLAFAXINE HCL 75 MG TABS 1 po BID VENLAFAXINE HCL 25487732512 No Longer Active JASPREET Perez Active CIPRO 500 MG TAB 1 tablet by mouth twice daily CIPROFLOXACIN HCL 51455430998 No Longer Active Tu Landeros MD Active VENLAFAXINE HCL 37.5 MG TABS 1 po BID VENLAFAXINE HCL 22032036673 No Longer Active Suzebianca NUNOA Active LAMISIL 250 MG TAB 1 po qd TERBINAFINE HCL 87973337114 No Longer Active Tu Landeros MD Active LORTAB 5 5-500 MG TABS 1/2 to 1 tablet by mouth every 4 hours as needed for pain HYDROCODONE-ACETAMINOPHEN 61866216569 No Longer Active Tu Landeros MD Active ENALAPRIL MALEATE 20 MG TABS 1.5 po qd ENALAPRIL MALEATE 55458655666 Active Tu Landeros MD Active HYDROCODONE-ACETAMINOPHEN 5-500 MG TABS take one po Q 4-6 hours prn HYDROCODONE-ACETAMINOPHEN 54976860341 No Longer Active Tu Landeros MD Active BACTRIM DS 800-160 MG TABS 1 po BID x 7 days SULFAMETHOXAZOLE-TRIMETHOPRIM 79351006850 No Longer Active Tu Landeros MD Active VENLAFAXINE HCL 75 MG TABS 1 po BID VENLAFAXINE HCL 47191274167 No Longer Active Elvira Cervantes MD PhD Active TRAMADOL HCL 50 MG TABS 1 tablets every 6 hours as needed for pain TRAMADOL HCL 62630516653 No Longer Active Tu Landeros MD Active ACCU-CHEK FASTCLIX LANCETS MISC Use to check bloodsugar three times daily as needed LANCETS 25068994729 No Longer Active Tu Landeros MD Active ACCU-CHEK KEYONA PLUS STRP Use for testing bloodsugars three times daily as needed GLUCOSE BLOOD 58663653642 No Longer Active Tu Landeros MD Active ACCU-CHEK KEYONA PLUS W/DEVICE KIT Use for testing bloodsugars three times daily as needed BLOOD GLUCOSE MONITORING SUPPL 51420648977 No Longer Active Tu Landeros MD Active SPIRONOLACTONE 25 MG TAB 0.5 tablet by mouth daily SPIRONOLACTONE 11929550638 No Longer Active Tu Landeros MD Active ALPRAZOLAM 0.5 MG TABS 1 tab every 6hrs as needed ALPRAZOLAM 22586920307 No Longer Active Tu Landeros MD Active AUGMENTIN 875-125 MG TAB 1 tab by mouth twice daily with food AMOXICILLIN-POT CLAVULANATE 84407494609 No Longer Active Tu Landeros MD Active PREDNISONE 20 MG TAB 2 tabs daily for 3 days, 1 tab daily for 3 days, 1/2 tab daily for 2 days PREDNISONE 83146641821 No Longer Active Tu Landeros MD Active XANAX 0.5 MG TABS 1 tablet every 6 hrs prn ALPRAZOLAM 87811578260 No Longer Active Tu Landeros MD Active PREDNISONE 20 MG TAB 2 tabs daily for 3 days, 1 tab daily for 3 days, 1/2 tab daily for 2 days PREDNISONE 20832788466 No Longer Active Tu Landeros MD Active TRIAMCINOLONE ACETONIDE 0.1 % OINT Apply to affected areas TID for up to 2 weeks TRIAMCINOLONE ACETONIDE 08774883705 No Longer Active Tu Landeros MD Active LORTAB 5 5-500 MG TABS 1/2 to 1 tablet by mouth every 4 hours as needed for pain HYDROCODONE-ACETAMINOPHEN 84916600707 No Longer Active Tu Landeros MD Active MULTIVITAMINS TABS Take one by mouth daily MULTIPLE VITAMIN 16132083844 No Longer Active Tu Landeros MD Active MELATONIN 5 MG TABS Take one by mouth daily MELATONIN 63773936321 No Longer Active Tu Landeros MD Active SOMA 350 MG TAB 1 po q 6 hours prn spasm CARISOPRODOL 15217312292 No Longer Active Tu Landeros MD Active MECLIZINE HCL 25 MG CHEW TAB 1 four times a day as needed for dizziness 08/05 MECLIZINE HCL 16247454388 No Longer Active Fab Morales DO Active ANGEL BREEZE 2 TEST DISK test tid prn GLUCOSE BLOOD 11155259766 No Longer Active Negra Scott RN Active REGLAN 10 MG TAB 1 po TID PRN Nausea METOCLOPRAMIDE HCL 50645356600 No Longer Active Tu Landeros MD Active METFORMIN HCL 500 MG TABS 1 PO BID METFORMIN HCL 95755369883 No Longer Active Tu Landeros MD Active AMBIEN 10 MG TAB 1 tab by mouth at bedtime as needed for sleep ZOLPIDEM TARTRATE 49933274076 No Longer Active Tu Landeros MD Active FLUOXETINE HCL 40 MG CAPS 1 po q day FLUOXETINE HCL 23863962450 No Longer Active Mayra [place] Active FISH OIL 1000 MG CAPS Take one by mouth daily OMEGA-3 FATTY ACIDS 55182790404 Active Tu Landeros MD Active GLUCOSAMINE 500 MG TABS Take 2 tab po qd GLUCOSAMINE 44384681380 Active Tu Landeros MD Active TRILIPIX 135 MG CPDR 1 po qd CHOLINE FENOFIBRATE 62552542802 No Longer Active Tu Landeros MD Active ASPIRIN 81 MG CHEW TAB 1 tablet by mouth daily ASPIRIN 92067189984 Active Tu Landeros MD Active FUROSEMIDE 40 MG TAB 1 tablet by mouth daily FUROSEMIDE 75739887430 Active Tu Landeros MD Active REQUIP 2 MG TABS Take one tablet at bedtime prn ROPINIROLE HCL 40185900996 Active Tu Landeros MD Active KLOR-CON 10 10 MEQ CR-TABS TAKE 2 TABS DAILY POTASSIUM CHLORIDE 12019942103 Active Tu Landeros MD Active AMBIEN 10 MG TAB 1 tab by mouth at bedtime as needed for sleep AMBIEN 10 MG TAB 263227 ZOLPIDEM TARTRATE Inactive METFORMIN HCL 500 MG TABS 1 PO BID METFORMIN HCL 500 MG TABS 261852 METFORMIN HCL Inactive REGLAN 10 MG TAB 1 po TID PRN Nausea REGLAN 10 MG TAB 326421 METOCLOPRAMIDE HCL Inactive MECLIZINE HCL 25 MG CHEW TAB 1 four times a day as needed for dizziness 08/05 MECLIZINE HCL 25 MG CHEW TAB 328509 MECLIZINE HCL Inactive SOMA 350 MG TAB 1 po q 6 hours prn spasm SOMA 350 MG TAB 354149 CARISOPRODOL Inactive MELATONIN 5 MG TABS Take one by mouth daily MELATONIN 5 MG TABS 912984 MELATONIN Inactive MULTIVITAMINS TABS Take one by mouth daily MULTIVITAMINS TABS MULTIPLE VITAMIN Inactive LORTAB 5 5-500 MG TABS 1/2 to 1 tablet by mouth every 4 hours as needed for pain LORTAB 5 5-500 MG TABS HYDROCODONE- ACETAMINOPHEN Inactive XANAX 0.5 MG TABS 1 tablet every 6 hrs prn XANAX 0.5 MG TABS 299050 ALPRAZOLAM Inactive AUGMENTIN 875-125 MG TAB 1 tab by mouth twice daily with food AUGMENTIN 875-125 MG TAB 748866 AMOXICILLIN-POT CLAVULANATE Inactive ALPRAZOLAM 0.5 MG TABS 1 tab every 6hrs as needed ALPRAZOLAM 0.5 MG TABS 536261 ALPRAZOLAM Inactive SPIRONOLACTONE 25 MG TAB 0.5 tablet by mouth daily SPIRONOLACTONE 25 MG TAB 410413 SPIRONOLACTONE Inactive ACCU-CHEK KEYONA PLUS W/DEVICE KIT Use for testing bloodsugars three times daily as needed ACCU-CHEK KEYONA PLUS W/DEVICE KIT BLOOD GLUCOSE MONITORING SUPPL Inactive ACCU-CHEK KEYONA PLUS STRP Use for testing bloodsugars three times daily as needed ACCU-CHEK KEYONA PLUS STRP GLUCOSE BLOOD Inactive ACCU-CHEK FASTCLIX LANCETS MISC Use to check bloodsugar three times daily as needed ACCU-CHEK FASTCLIX LANCETS MISC 39908014096 LANCETS Inactive TRAMADOL HCL 50 MG TABS 1 tablets every 6 hours as needed for pain TRAMADOL HCL 50 MG TABS 191807 TRAMADOL HCL Inactive VENLAFAXINE HCL 75 MG TABS 1 po BID VENLAFAXINE HCL 75 MG TABS 790593 VENLAFAXINE HCL Inactive HYDROCODONE-ACETAMINOPHEN 5-500 MG TABS take one po Q 4-6 hours prn HYDROCODONE-ACETAMINOPHEN 5-500 MG TABS HYDROCODONE- ACETAMINOPHEN Inactive LORTAB 5 5-500 MG TABS 1/2 to 1 tablet by mouth every 4 hours as needed for pain LORTAB 5 5-500 MG TABS HYDROCODONE- ACETAMINOPHEN Inactive LAMISIL 250 MG TAB 1 po qd LAMISIL 250 MG TAB 327954 TERBINAFINE HCL Inactive VENLAFAXINE HCL 37.5 MG TABS 1 po BID VENLAFAXINE HCL 37.5 MG TABS 714040 VENLAFAXINE HCL Inactive CIPRO 500 MG TAB 1 tablet by mouth twice daily CIPRO 500 MG TAB 889165 CIPROFLOXACIN HCL Inactive VENLAFAXINE HCL 75 MG TABS 1 po BID VENLAFAXINE HCL 75 MG TABS 810288 VENLAFAXINE HCL Inactive SIMVASTATIN 40 MG TABS Take one by mouth daily SIMVASTATIN 40 MG TABS 135086 SIMVASTATIN Inactive OMEPRAZOLE 20 MG TBEC 1 PO 30 MIN BEFORE 1ST MEAL OMEPRAZOLE 20 MG TBEC 491498 OMEPRAZOLE Inactive FENOFIBRATE 145 MG TABS 1 po qd FENOFIBRATE 145 MG TABS 759084 FENOFIBRATE Inactive BACTRIM DS 800-160 MG TABS 1 bid x 14 day start 09-28-13 BACTRIM DS 800-160 MG TABS 363840 SULFAMETHOXAZOLE-TRIMETHOPRIM Inactive B-12 100 MCG TABS Take one by mouth daily B-12 100 MCG TABS CYANOCOBALAMIN Inactive GABAPENTIN 100 MG CAPS 1 po bid GABAPENTIN 100 MG CAPS 143842 GABAPENTIN Inactive HYDROCODONE-ACETAMINOPHEN 5-325 MG TABS 1 tab by mouth every 6 hours as needed for pain HYDROCODONE-ACETAMINOPHEN 5-325 MG TABS 575033 HYDROCODONE-ACETAMINOPHEN Inactive CIPRO 500 MG TABS 1 bid x 14 days start 09-28-13 CIPRO 500 MG TABS 899525 CIPROFLOXACIN HCL Inactive ALIGN 4 MG CAPS [...] as needed DICLOFENAC SODIUM 50 MG TBEC 394114 DICLOFENAC SODIUM Inactive PREDNISONE 20 MG TAB 2 tablets once daily for 2 days, then 1 tablet once daily for 2 days PREDNISONE 20 MG TAB 303642 PREDNISONE Inactive TRUEDRAW LANCING DEVICE MISC Test [...] 2 weeks TRIAMCINOLONE ACETONIDE 0.1 % OINT 3807135 TRIAMCINOLONE ACETONIDE Inactive PREDNISONE 20 MG TAB 2 tabs daily for 3 days, 1 tab daily for 3 days, 1/2 tab daily for 2 days PREDNISONE 20 MG TAB 658113 PREDNISONE Inactive PREDNISONE 20 MG TAB 2 tabs daily for 3 days, 1 tab daily for 3 days, 1/2 tab daily for 2 days PREDNISONE 20 MG TAB 224059 PREDNISONE Inactive BACTRIM DS 800-160 MG TABS 1 po BID x 7 days BACTRIM DS 800-160 MG TABS 758226 SULFAMETHOXAZOLE-TRIMETHOPRIM Inactive Immunizations Vaccine Administration Date Value Standard Description Seasonal influenza vaccine, injectable, containing preservative, for > 3 years old (Afluria, FluLaval, Fluzone, Fluvirin, Fluarix, Agriflu(>=18 yo)) Fluzone (>3 yrs.) [[id number]] Influenza, seasonal, injectable influenza immunization (Flu Vax) has been administered 02/22/2012 influenza virus vaccine, unspecified formulation Seasonal influenza vaccine, injectable, containing preservative, for > 3 years old (Afluria, FluLaval, Fluzone, Fluvirin, Fluarix, Agriflu(>=18 yo)) Fluzone (>3 yrs.) [HII396] Influenza, seasonal, injectable Vital Signs Date Name [...] CBC - Chemistry sodium, serum 143 mmol/L 077-242 4338/03/10 potassium, serum 4.9 mmol/L 3.5-5.2 chloride, serum [...] MICROALBUMIN - Chemistry sodium, serum 142 mmol/L 204-986 6628/10/08 potassium, serum 4.5 mmol/L 3.5-5.2 chloride, serum [...] 0.30 mg/dL 0.00-1.00 cholesterol, serum 111 mg/dL 688-983 7432/07/28 triglyceride, serum, fasting 177 mg/dL 30-200 HDL [...] Panel - Chemistry cholesterol, serum 124 mg/dL 003-454 1527/01/12 triglyceride, serum, fasting 135 mg/dL 30-200 HDL cholesterol, serum 41 mg/dL 32-96 LDL cholesterol, serum 56 mg/dL 0-130 sodium, serum 140 mmol/L 848-094 0389/01/12 carbon dioxide, venous blood 27.7 mmol/L 21.0-32.0 potassium, serum 4.5 mmol/L 3.5-5.2 chloride, serum 104 mmol/L 98-107 blood glucose 139 mg/dL 65-110 urea nitrogen, blood 16 mg/dL 7-18 alanine aminotransferase (SGPT), serum 32 U/L -78 aspartate aminotransferase (SGOT), serum 25 U/L 15-37 calcium, serum 9.1 mg/dL 8.5-10.1 bilirubin, serum, total 0.50 mg/dL 0.00-1.00 Encounters Code Encounter Date Provider Facility CPT-18142 Level 4 Est. Patient 13:50:18 TABLE INSPECTOR Tu Landeros MD [facility] CPT-80907 Level 3 Est. Patient 10:30:04 CDT Tu Landeros MD [facility] CPT-45934 Level 4 Est. Patient 11:03:38 CDT Tu Landeros MD [facility] CPT-03170 Level 3 Est. Patient 10:20:44 CDT Fab Morales DO [facility] CPT-27590 Level 4 Est. Patient 14:38:57 CDT Tu Landeros MD [facility] CPT-03148 Level 4 Est. Patient 14:27:39 TABLE INSPECTOR Tu Landeros MD [facility] CPT-42150 Level 4 Est. Patient 09:45:25 CDT Tu Landeros MD [facility] CPT-53653 Level 4 Est. Patient 09:05:20 TABLE INSPECTOR Tu Landeros MD [facility] CPT-23289 Level 4 Est. Patient 14:09:06 CDT Tu Landeros MD [facility] CPT-27726 Level 3 Est. Patient 13:36:54 CDT Tu Landeros MD [facility] CPT-34750 Level 3 Est. Patient 08:59:14 CDT Tu Landeros MD [facility] CPT-80869 Level 3 Est. Patient 13:48:35 CDT Fab Morales DO [facility] CPT-13992 Level 4 Est. Patient 10:05:48 CDT Tu Landeros MD [facility] CPT-59323 Level 3 Est. Patient 13:38:42 CDT Marek BANKS [facility] CPT-59631 Level 5 Est. Patient 08:08:39 CDT Jerrica Hopkins TITO [facility] CPT-62527 Level 4 Est. Patient 14:23:38 CDT Tu Landeros MD [facility] CPT-18401 Level 3 Est. Patient 11:44:04 CDT Tu Landeros MD [facility] CPT-71383 Level 3 Est. Patient 11:03:20 TABLE INSPECTOR Tu Landeros MD [facility] CPT-39719 Level 3 Est. Patient 11:03:14 TABLE INSPECTOR Tu Landeros MD [facility] CPT-01887 Level 3 Est. Patient 12:42:49 CDT Tu Landeros MD [facility] CPT-78759 Level 3 Est. Patient 11:52:06 CDT Tu Landeros MD [facility] CPT-49445 Level 3 Est. Patient 13:58:11 CDT Tu Landeros MD [facility] CPT-26208 Level 3 Est. Patient 17:50:07 CDT Fab Morales DO [facility] CPT-71914 Level 3 Est. Patient 12:06:29 CDT Elvira Cervantes MD, PhD [facility] CPT-17767 Level 3 Est. Patient 15:50:32 CDT Tu Landeros MD [facility] CPT-66525 Level 4 Est. Patient 16:08:29 CDT Tu Landeros MD [facility] CPT-20017 Level 3 Est. Patient 16:04:19 CDT Tu Landeros MD [facility] CPT-15379 Level 3 Est. Patient 11:22:30 TABLE INSPECTOR Tu Landeros MD [facility] CPT-88209 Level 4 Est. Patient 16:24:02 TABLE INSPECTOR Tu Landeros MD [facility] CPT-14354 Level 3 Est. Patient 17:21:23 TABLE INSPECTOR Tu Landeros MD [facility] Procedures Code Procedure Name Date Entry Date Standard Description CPT-63963 Postop F/U Visit 10:02:45 CDT CPT-LR Lesion Removal 09:02:56 CDT CPT-JTINJ Asp/Joint Injection 15:51:27 TABLE INSPECTOR CPT-OV Office Visit 15:52:02 TABLE INSPECTOR CPT-OV Office Visit 15:45:11 CDT CPT-000 Give Zostavax 14:09:06 CDT CPT-14882 Administration single or combination vaccine inc oral 15 :19:04 CDT CPT-38663 Zoster Vaccine (Zostavax) 15:19:04 CDT CPT-11607 Administration single or combination vaccine inc oral 20 :51:03 CDT CPT-52448 Influenza split virus > age 3 20:51:03 CDT CPT-54711 No Charge Offi Visit 14:52:03 CDT CPT-OV Office Visit 14:57:43 CDT CPT-OV Office Visit 15:22:32 CDT CPT-49543 Administration single or combination vaccine inc oral 11 :33:15 CDT CPT-06117 Influenza split virus > age 3 11:33:15 CDT
--- OUTSIDE RECORDS SUMMARY | 2018-04-25 18:23 | XMS REPORT | Clinical Summary ---
Author Author Admin, SACHI Organization [facility] Address Unknown Phone Unavailable Allergies, Adverse Reactions, [...] right ICD-719.41 Tessa Landeros MD ONYCHOMYCOSIS ICD-110.1 Inactive Tu Landeros MD Medication List Medication Instructions Start Date Stop Date Generic Name NDC Status Provider Patient Instruction GABAPENTIN 100 MG CAPS 1 po TID GABAPENTIN 87502011790 Active Tu Landeros MD Active DICLOFENAC SODIUM 50 MG ORAL TBEC 1 po BID PRN Pain DICLOFENAC SODIUM 37651661982 No Longer Active Tu Landeros MD Active CYCLOBENZAPRINE HCL 10 MG ORAL TABS 1 po TID PRN Muscle Spasm CYCLOBENZAPRINE HCL 94800204863 No Longer Active Tu Landeros MD Active INVOKANA 100 MG ORAL TABS 1 po qd CANAGLIFLOZIN 61776702877 Active Tu Landeros MD Active GLIPIZIDE 5 MG ORAL TABS 1 po qd GLIPIZIDE 74830724689 No Longer Active Tu Landeros MD Active VENLAFAXINE HCL 75 MG ORAL TABS 1 po BID VENLAFAXINE HCL 12756763173 Active Tu Landeros MD Active GLIMEPIRIDE 1 MG ORAL TABS 1 po qd GLIMEPIRIDE 94402444650 No Longer Active Tu Landeros MD Active TRUE METRIX BLOOD GLUCOSE TEST INVITR STRP Test blood sugar BID Dx: E11.9 GLUCOSE BLOOD 65968624845 Active Tu Landeros MD Active TRUE METRIX AIR GLUCOSE METER W/DEVICE KIT Test blood glucose BID Dx: E11.9 BLOOD GLUCOSE MONITORING SUPPL 00422364669 Active Tu Landeros MD Active TRUETEST TEST INVITR STRP test blood sugar twice daily. DX 250.0 GLUCOSE BLOOD 15758313478 No Longer Active Mirna Stanley LPN Active TRUEDRAW LANCING DEVICE MISC test blood sugar twice daily dx: 250.00 LANCET DEVICES 07115731759 No Longer Active Mirna Stanley LPN Active ENALAPRIL MALEATE 20 MG TABS 2 po qd ENALAPRIL MALEATE 57010379018 Active Lesli Kellogg APRN Active SUPER B COMPLEX/VITAMIN C TABS 1 qd B COMPLEX-C 63522948926 No Longer Active Tu Landeros MD Active ASPIRIN EC 81 MG ORAL TBEC 1 po qd ASPIRIN 04511303460 Active Tu Landeros MD Active GLUCOSAMINE 500 MG TABS 2 po qd GLUCOSAMINE Active Tu Landeros MD Active SIMVASTATIN 40 MG TABS 0.5 po qHS SIMVASTATIN 88965326617 Active Tu Landeros MD Active FISH OIL 1000 MG CAPS 1 po qd OMEGA-3 FATTY ACIDS 61944666120 Active Tu Landeros MD Active METFORMIN HCL 1000 MG TABS 1 po BID METFORMIN HCL 31529102394 Active Tu Landeros MD Active KLOR-CON 10 10 MEQ CR-TABS 2 po qd POTASSIUM CHLORIDE 98975652097 Active Tu Landeros MD Active FUROSEMIDE 40 MG TAB 1 po qd FUROSEMIDE 57383577345 Active Tu Landeros MD Active REQUIP 2 MG ORAL TABS 1 po qHS PRN Restless legs ROPINIROLE HCL 22793709047 Active Tu Landeros MD Active REQUIP 2 MG TABS Take one tablet at bedtime prn ROPINIROLE HCL 05246423165 No Longer Active Tu Landeors MD Active VENTOLIN HFA 108 (90 BASE) MCG/ACT AERS 1-2 puffs every 4 hours if needed for cough/congestion ALBUTEROL SULFATE 82304038565 No Longer Active Ambika Aden APRN Active ZITHROMAX 250 MG TAB 2 po today, then 1 po q days 2-5 AZITHROMYCIN 54168636273 No Longer Active Miranda Suresh APRN Active FLONASE 50 MCG/ACT SUSP 1 spray each nostril twice daily until bottle empty FLUTICASONE PROPIONATE 02306927995 No Longer Active Tu Landeros MD Active COLACE 100 MG CAP 1 po BID PRN Constipation DOCUSATE SODIUM 74692472030 Active Tu Landeros MD Active TRUERESULT BLOOD GLUCOSE W/DEVICE KIT test blood sugar twice daily dx 250.00 BLOOD GLUCOSE MONITORING SUPPL 88535353201 No Longer Active Tu Landeros MD Active TRUEDRAW LANCING DEVICE MISC Test twice a day dx 250.0 LANCET DEVICES 43196300058 No Longer Active Tu Landeros MD Active PREDNISONE 20 MG TAB 2 tablets once daily for 2 days, then 1 tablet once daily for 2 days PREDNISONE 12523337541 No Longer Active Tu Landeros MD Active DICLOFENAC SODIUM 50 MG TBEC 1 tablet by mouth three times a day as needed DICLOFENAC SODIUM 15126956584 No Longer Active Fab Morales DO Active EMBRACE BLOOD GLUCOSE TEST STRP test blood sugar twice daily DX 250.0 2014 GLUCOSE BLOOD 00659084834 No Longer Active Tu Landeros MD Active TRUETEST TEST STRP test blood sugar three times daily dx: 250.00 GLUCOSE BLOOD 32196217497 No Longer Active Suze Corey RMA Active TRUERESULT BLOOD GLUCOSE W/DEVICE KIT use to test blood sugar tid dx: 250.00 BLOOD GLUCOSE MONITORING SUPPL 11020316948 No Longer Active Suze Corey RMA Active ALIGN 4 MG CAPS 1 tid PROBIOTIC PRODUCT 32408995317 No Longer Active Shaun Sy MD Active CIPRO 500 MG TABS 1 bid x 14 days start 09-28-13 CIPROFLOXACIN HCL 62327917710 No Longer Active Shaun Sy MD Active TRAMADOL HCL 50 MG TABS 1-2 tablets every 6 hours as needed for pain TRAMADOL HCL 88986200016 Active Tu Landeros MD Active HYDROCODONE-ACETAMINOPHEN 5-325 MG TABS 1 tab by mouth every 6 hours as needed for pain HYDROCODONE-ACETAMINOPHEN 56163472191 No Longer Active Tu Landeros MD Active OMEPRAZOLE 20 MG CPDR 1 po q a.m. OMEPRAZOLE 65360654412 Active Fab Morales DO Active GABAPENTIN 100 MG CAPS 1 po bid GABAPENTIN 59991775722 No Longer Active Tu Landeros MD Active B-12 100 MCG TABS Take one by mouth daily CYANOCOBALAMIN 42084402175 No Longer Active Tu Landeros MD Active BACTRIM DS 800-160 MG TABS 1 bid x 14 day start 09-28-13 SULFAMETHOXAZOLE-TRIMETHOPRIM 55587147138 No Longer Active Tu Landeros MD Active CARVEDILOL 12.5 MG TABS 1 po BID CARVEDILOL 79814403900 Active Lesli Kellogg APRN Active TRILIPIX 135 MG CPDR 1 q hs CHOLINE FENOFIBRATE 81694844864 Active Tu Landeros MD Active FENOFIBRATE 145 MG TABS 1 po qd FENOFIBRATE 43293266073 No Longer Active JASPREET Perez Active OMEPRAZOLE 20 MG TBEC 1 PO 30 MIN BEFORE 1ST MEAL OMEPRAZOLE 02824716420 No Longer Active JASPREET Perez Active SIMVASTATIN 40 MG TABS Take one by mouth daily SIMVASTATIN 07091552933 No Longer Active JASPREET ePrez Active VENLAFAXINE HCL 75 MG TABS 1 po BID VENLAFAXINE HCL 55185196670 No Longer Active JASPREET Perez Active CIPRO 500 MG TAB 1 tablet by mouth twice daily CIPROFLOXACIN HCL 03154803230 No Longer Active Tu Landeros MD Active VENLAFAXINE HCL 37.5 MG TABS 1 po BID VENLAFAXINE HCL 20616197438 No Longer Active Suzecandido Nicole RMA Active LAMISIL 250 MG TAB 1 po qd TERBINAFINE HCL 43178561996 No Longer Active Tu Landeros MD Active LORTAB 5 5-500 MG TABS 1/2 to 1 tablet by mouth every 4 hours as needed for pain HYDROCODONE-ACETAMINOPHEN 97336746604 No Longer Active Tu Landeros MD Active HYDROCODONE-ACETAMINOPHEN 5-500 MG TABS take one po Q 4-6 hours prn HYDROCODONE-ACETAMINOPHEN 69073347129 No Longer Active Tu Landeros MD Active BACTRIM DS 800-160 MG TABS 1 po BID x 7 days SULFAMETHOXAZOLE-TRIMETHOPRIM 73411879429 No Longer Active Tu Landeros MD Active VENLAFAXINE HCL 75 MG TABS 1 po BID VENLAFAXINE HCL 60657835924 No Longer Active Elvira Cervantes MD PhD Active TRAMADOL HCL 50 MG TABS 1 tablets every 6 hours as needed for pain TRAMADOL HCL 83677822633 No Longer Active Tu Landeros MD Active ACCU-CHEK FASTCLIX LANCETS MISC Use to check bloodsugar three times daily as needed LANCETS 46693235857 No Longer Active Tu Landeros MD Active ACCU-CHEK KEYONA PLUS STRP Use for testing bloodsugars three times daily as needed GLUCOSE BLOOD 85600285473 No Longer Active Tu Landeros MD Active ACCU-CHEK KEYONA PLUS W/DEVICE KIT Use for testing bloodsugars three times daily as needed BLOOD GLUCOSE MONITORING SUPPL 21949352742 No Longer Active Tu Landeros MD Active SPIRONOLACTONE 25 MG TAB 0.5 tablet by mouth daily SPIRONOLACTONE 16510005503 No Longer Active Tu Landeros MD Active ALPRAZOLAM 0.5 MG TABS 1 tab every 6hrs as needed ALPRAZOLAM 68304199738 No Longer Active Tu Landeros MD Active AUGMENTIN 875-125 MG TAB 1 tab by mouth twice daily with food AMOXICILLIN-POT CLAVULANATE 54130829020 No Longer Active Tu Landeros MD Active PREDNISONE 20 MG TAB 2 tabs daily for 3 days, 1 tab daily for 3 days, 1/2 tab daily for 2 days PREDNISONE 86355808354 No Longer Active Tu Landeros MD Active XANAX 0.5 MG TABS 1 tablet every 6 hrs prn ALPRAZOLAM 59269743865 No Longer Active Tu Landeros MD Active PREDNISONE 20 MG TAB 2 tabs daily for 3 days, 1 tab daily for 3 days, 1/2 tab daily for 2 days PREDNISONE 78896002732 No Longer Active Tu Landeros MD Active TRIAMCINOLONE ACETONIDE 0.1 % OINT Apply to affected areas TID for up to 2 weeks TRIAMCINOLONE ACETONIDE 77202223113 No Longer Active Tu Landeros MD Active LORTAB 5 5-500 MG TABS 1/2 to 1 tablet by mouth every 4 hours as needed for pain HYDROCODONE-ACETAMINOPHEN 77336551371 No Longer Active Tu Landeros MD Active MULTIVITAMINS TABS Take one by mouth daily MULTIPLE VITAMIN 01950509575 No Longer Active Tu Landeros MD Active MELATONIN 5 MG TABS Take one by mouth daily MELATONIN 80438353743 No Longer Active Tu Landeros MD Active SOMA 350 MG TAB 1 po q 6 hours prn spasm CARISOPRODOL 44374149608 No Longer Active Tu Landeros MD Active MECLIZINE HCL 25 MG CHEW TAB 1 four times a day as needed for dizziness 08/05 MECLIZINE HCL 32477593043 No Longer Active Fab Morales DO Active ANGEL BREEZE 2 TEST DISK test tid prn GLUCOSE BLOOD 78081292254 No Longer Active Negra Scott RN Active REGLAN 10 MG TAB 1 po TID PRN Nausea METOCLOPRAMIDE HCL 57410598836 No Longer Active Tu Landeros MD Active METFORMIN HCL 500 MG TABS 1 PO BID METFORMIN HCL 03988501413 No Longer Active Tu Landeros MD Active AMBIEN 10 MG TAB 1 tab by mouth at bedtime as needed for sleep ZOLPIDEM TARTRATE 86798272990 No Longer Active Tu Landeros MD Active FLUOXETINE HCL 40 MG CAPS 1 po q day FLUOXETINE HCL 51585617089 No Longer Active May[facility] Active TRILIPIX 135 MG CPDR 1 po qd CHOLINE FENOFIBRATE 97932525353 No Longer Active Tu Landeros MD Active AMBIEN 10 MG TAB 1 tab by mouth at bedtime as needed for sleep AMBIEN 10 MG TAB 866635 ZOLPIDEM TARTRATE Inactive METFORMIN HCL 500 MG TABS 1 PO BID METFORMIN HCL 500 MG TABS 144068 METFORMIN HCL Inactive REGLAN 10 MG TAB 1 po TID PRN Nausea REGLAN 10 MG TAB 893071 METOCLOPRAMIDE HCL Inactive MECLIZINE HCL 25 MG CHEW TAB 1 four times a day as needed for dizziness 08/05 MECLIZINE HCL 25 MG CHEW TAB 586108 MECLIZINE HCL Inactive SOMA 350 MG TAB 1 po q 6 hours prn spasm SOMA 350 MG TAB 893376 CARISOPRODOL Inactive MELATONIN 5 MG TABS Take one by mouth daily MELATONIN 5 MG TABS 059669 MELATONIN Inactive MULTIVITAMINS TABS Take one by mouth daily MULTIVITAMINS TABS MULTIPLE VITAMIN Inactive LORTAB 5 5-500 MG TABS 1/2 to 1 tablet by mouth every 4 hours as needed for pain LORTAB 5 5-500 MG TABS HYDROCODONE- ACETAMINOPHEN Inactive XANAX 0.5 MG TABS 1 tablet every 6 hrs prn XANAX 0.5 MG TABS 232003 ALPRAZOLAM Inactive AUGMENTIN 875-125 MG TAB 1 tab by mouth twice daily with food AUGMENTIN 875-125 MG TAB 970755 AMOXICILLIN-POT CLAVULANATE Inactive ALPRAZOLAM 0.5 MG TABS 1 tab every 6hrs as needed ALPRAZOLAM 0.5 MG TABS 490218 ALPRAZOLAM Inactive SPIRONOLACTONE 25 MG TAB 0.5 tablet by mouth daily SPIRONOLACTONE 25 MG TAB 035176 SPIRONOLACTONE Inactive ACCU-CHEK KEYONA PLUS W/DEVICE KIT Use for testing bloodsugars three times daily as needed ACCU-CHEK KEYONA PLUS W/DEVICE KIT BLOOD GLUCOSE MONITORING SUPPL Inactive ACCU-CHEK KEYONA PLUS STRP Use for testing bloodsugars three times daily as needed ACCU-CHEK KEYONA PLUS STRP GLUCOSE BLOOD Inactive ACCU-CHEK FASTCLIX LANCETS MISC Use to check bloodsugar three times daily as needed ACCU-CHEK FASTCLIX LANCETS MISC 48731078903 LANCETS Inactive TRAMADOL HCL 50 MG TABS 1 tablets every 6 hours as needed for pain TRAMADOL HCL 50 MG TABS 821492 TRAMADOL HCL Inactive VENLAFAXINE HCL 75 MG TABS 1 po BID VENLAFAXINE HCL 75 MG TABS 893393 VENLAFAXINE HCL Inactive HYDROCODONE-ACETAMINOPHEN 5-500 MG TABS take one po Q 4-6 hours prn HYDROCODONE-ACETAMINOPHEN 5-500 MG TABS HYDROCODONE- ACETAMINOPHEN Inactive LORTAB 5 5-500 MG TABS 1/2 to 1 tablet by mouth every 4 hours as needed for pain LORTAB 5 5-500 MG TABS HYDROCODONE- ACETAMINOPHEN Inactive LAMISIL 250 MG TAB 1 po qd LAMISIL 250 MG TAB 232661 TERBINAFINE HCL Inactive VENLAFAXINE HCL 37.5 MG TABS 1 po BID VENLAFAXINE HCL 37.5 MG TABS 858186 VENLAFAXINE HCL Inactive CIPRO 500 MG TAB 1 tablet by mouth twice daily CIPRO 500 MG TAB 972401 CIPROFLOXACIN HCL Inactive VENLAFAXINE HCL 75 MG TABS 1 po BID VENLAFAXINE HCL 75 MG TABS 665074 VENLAFAXINE HCL Inactive SIMVASTATIN 40 MG TABS Take one by mouth daily SIMVASTATIN 40 MG TABS 992113 SIMVASTATIN Inactive OMEPRAZOLE 20 MG TBEC 1 PO 30 MIN BEFORE 1ST MEAL OMEPRAZOLE 20 MG TBEC 721545 OMEPRAZOLE Inactive FENOFIBRATE 145 MG TABS 1 po qd FENOFIBRATE 145 MG TABS 704996 FENOFIBRATE Inactive BACTRIM DS 800-160 MG TABS 1 bid x 14 day start 09-28-13 BACTRIM DS 800-160 MG TABS 001483 SULFAMETHOXAZOLE-TRIMETHOPRIM Inactive B-12 100 MCG TABS Take one by mouth daily B-12 100 MCG TABS CYANOCOBALAMIN Inactive GABAPENTIN 100 MG CAPS 1 po bid GABAPENTIN 100 MG CAPS 078911 GABAPENTIN Inactive HYDROCODONE-ACETAMINOPHEN 5-325 MG TABS 1 tab by mouth every 6 hours as needed for pain HYDROCODONE-ACETAMINOPHEN 5-325 MG TABS 192051 HYDROCODONE-ACETAMINOPHEN Inactive CIPRO 500 MG TABS 1 bid x 14 days start 09-28-13 CIPRO 500 MG TABS 538385 CIPROFLOXACIN HCL Inactive ALIGN 4 MG CAPS [...] as needed DICLOFENAC SODIUM 50 MG TBEC 489815 DICLOFENAC SODIUM Inactive PREDNISONE 20 MG TAB 2 tablets once daily for 2 days, then 1 tablet once daily for 2 days PREDNISONE 20 MG TAB 698226 PREDNISONE Inactive TRUEDRAW LANCING DEVICE MISC Test twice a day dx 250.0 TRUEDRAW LANCING DEVICE MISC LANCET DEVICES Inactive TRUERESULT BLOOD GLUCOSE W/DEVICE KIT test blood sugar twice daily dx 250.00 TRUERESULT BLOOD GLUCOSE W/DEVICE KIT BLOOD GLUCOSE MONITORING SUPPL Inactive FLONASE 50 MCG/ACT SUSP 1 spray each nostril twice daily until bottle empty FLONASE 50 MCG/ACT SUSP 1582234 FLUTICASONE PROPIONATE Inactive VENTOLIN HFA 108 (90 BASE) MCG/ACT AERS 1-2 puffs every 4 hours if needed for cough/congestion VENTOLIN HFA 108 (90 BASE) MCG/ACT AERS ALBUTEROL SULFATE Inactive REQUIP 2 MG TABS Take one tablet at bedtime prn REQUIP 2 MG TABS 112095 ROPINIROLE HCL Inactive SUPER B COMPLEX/VITAMIN C TABS 1 qd SUPER B COMPLEX/ VITAMIN C TABS 24466049534 B COMPLEX-C Inactive TRUEDRAW LANCING DEVICE MISC test blood sugar twice daily dx: 250.00 TRUEDRAW LANCING DEVICE MISC LANCET DEVICES Inactive TRUETEST TEST INVITR STRP test blood sugar twice daily. DX 250.0 TRUETEST TEST INVITR STRP GLUCOSE BLOOD Inactive CYCLOBENZAPRINE HCL 10 MG ORAL TABS 1 po TID PRN Muscle Spasm CYCLOBENZAPRINE HCL 10 MG ORAL TABS 989836 CYCLOBENZAPRINE HCL Inactive DICLOFENAC SODIUM 50 MG ORAL TBEC 1 po BID PRN Pain DICLOFENAC SODIUM 50 MG ORAL TBEC 027869 DICLOFENAC SODIUM Inactive TRIAMCINOLONE ACETONIDE 0.1 % OINT Apply to affected areas TID for up to 2 weeks TRIAMCINOLONE ACETONIDE 0.1 % OINT 6603592 TRIAMCINOLONE ACETONIDE Inactive PREDNISONE 20 MG TAB 2 tabs daily for 3 days, 1 tab daily for 3 days, 1/2 tab daily for 2 days PREDNISONE 20 MG TAB 651554 PREDNISONE Inactive PREDNISONE 20 MG TAB 2 tabs daily for 3 days, 1 tab daily for 3 days, 1/2 tab daily for 2 days PREDNISONE 20 MG TAB 843235 PREDNISONE Inactive BACTRIM DS 800-160 MG TABS 1 po BID x 7 days BACTRIM DS 800-160 MG TABS 054054 SULFAMETHOXAZOLE-TRIMETHOPRIM Inactive ZITHROMAX 250 MG TAB 2 po today, then 1 po q days 2-5 ZITHROMAX 250 MG TAB 1110610 AZITHROMYCIN Inactive Advance Directives Directive Description Start Date DISCUSSED WITH PATIENT -- NO DECISION MADE Immunizations Vaccine Administration Date Value Standard Description Seasonal influenza vaccine, injectable, containing preservative, for > 3 years old (Afluria, FluLaval, Fluzone, Fluvirin, Fluarix, Agriflu(>=18 yo)) Fluzone (>3 yrs.) [[id number]] Influenza, seasonal, injectable influenza immunization (Flu Vax) has been administered 02/22/2012 influenza virus vaccine, unspecified formulation Seasonal influenza vaccine, injectable, containing preservative, for > 3 years old (Afluria, FluLaval, Fluzone, Fluvirin, Fluarix, Agriflu(>=18 yo)) Fluzone (>3 yrs.) [[id number]] Influenza, seasonal, injectable Vital Signs Date Name [...] Magnesium - Chemistry sodium, serum 143 mmol/L 982-426 4751/01/10 carbon dioxide, venous blood 28.0 mmol/L 21.0-32.0 potassium, serum 4.5 mmol/L 3.5-5.2 chloride, serum 104 mmol/L 98-107 blood glucose 158 mg/dL 65-110 urea nitrogen, blood 23 mg/dL 7-18 creatinine, serum 1.06 mg/dL 0.55-1.30 alanine aminotransferase (SGPT), serum 42 U/L 12-78 aspartate aminotransferase (SGOT), serum 32 U/L 15-37 calcium, serum 9.3 mg/dL 8.5-10.1 bilirubin, serum, total 0.20 mg/dL 0.00-1.00 cholesterol, serum 177 mg/dL 700-725 7523/01/10 triglyceride, serum, fasting 320 mg/dL 30-200 HDL cholesterol, serum 46 mg/dL 32-96 LDL cholesterol, serum 67 mg/dL 0-130 Lab Report: COMPREHENSIVE METABOLIC PANEL, LIPID PANEL, HEMOGLOBIN A1c - Chemistry cholesterol, serum 135 mg/dL 415-993 2866/05/17 HDL cholesterol, serum 41 mg/dL > OR=46 [...] <30 Encounters Code Encounter Date Provider Facility CPT-88802 Level 4 Est. Patient 14:28:34 CDT Tu Landeros MD [facility] CPT-29843 Level 3 Est. Patient 13:33:09 CDT Tu Landeros MD [facility] CPT-83309 Level 4 Est. Patient 14:29:21 CDT Tu Landeros MD [facility] CPT-61215 Level 4 Est. Patient 09:08:17 VP PACKAGING Tu Landeros MD [facility] CPT-89565 Level 4 Est. Patient 14:40:19 CDT Tu Landeros MD [facility] CPT-96559 Level 4 Est. Patient 14:06:04 VP PACKAGING Tu Landeros MD [facility] CPT-54223 Level 3 Est. Patient 14:05:18 VP PACKAGING Tu Landeros MD [facility] CPT-03462 Level 3 Est. Patient 10:06:54 [facility]ING [facility] Est. Patient 13:50:18 VP PACKAGING Tu Landeros MD [facility] CPT-59142 Level 3 Est. Patient 10:30:04 CDT Tu Landeros MD [facility] CPT-37211 Level 4 Est. Patient 11:03:38 CDT Tu Landeros MD [facility] CPT-91321 Level 3 Est. Patient 10:20:44 CDT Fab Morales DO [facility] CPT-73373 Level 4 Est. Patient 14:38:57 CDT Tu Landeros MD [facility] CPT-49748 Level 4 Est. Patient 14:27:39 VP PACKAGING Tu Landeros MD [facility] CPT-98801 Level 4 Est. Patient 09:45:25 CDT Tu Landeros MD [facility] CPT-99606 Level 4 Est. Patient 09:05:20 VP PACKAGING Tu Landeros MD [facility] CPT-57382 Level 4 Est. Patient 14:09:06 CDT Tu Landeros MD [facility] CPT-68033 Level 3 Est. Patient 13:36:54 CDT Tu Landeros MD [facility] CPT-59427 Level 3 Est. Patient 08:59:14 CDT Tu Landeros MD [facility] CPT-95125 Level 3 Est. Patient 13:48:35 CDT Fab Morales DO [facility] CPT-01354 Level 4 Est. Patient 10:05:48 CDT Tu Landeros MD [facility] CPT-94657 Level 3 Est. Patient 13:38:42 CDT Marek BANKS [facility] CPT-04230 Level 5 Est. Patient 08:08:39 CDT Jerrica FRANCIS [facility] CPT-06663 Level 4 Est. Patient 14:23:38 CDT Tu Landeros MD [facility] CPT-69153 Level 3 Est. Patient 11:44:04 CDT Tu Landeros MD [facility] CPT-25806 Level 3 Est. Patient 11:03:20 VP PACKAGING Tu Landeros MD [facility] CPT-50145 Level 3 Est. Patient 11:03:14 VP PACKAGING Tu Landeros MD [facility] CPT-48349 Level 3 Est. Patient 12:42:49 CDT Tu Landeros MD [facility] CPT-90891 Level 3 Est. Patient 11:52:06 CDT Tu Landeros MD [facility] CPT-05570 Level 3 Est. Patient 13:58:11 CDT Tu Landeros MD [facility] CPT-69277 Level 3 Est. Patient 17:50:07 CDT Fab Morales DO [facility] CPT-43471 Level 3 Est. Patient 12:06:29 CDT Elvira Cervantes MD [facility] CPT-82412 Level 3 Est. Patient 15:50:32 CDT Tu Landeros MD [facility] CPT-10720 Level 4 Est. Patient 16:08:29 CDT Tu Landeros MD [facility] CPT-02364 Level 3 Est. Patient 16:04:19 CDT Tu Landeros MD [facility] CPT-02962 Level 3 Est. Patient 11:22:30 VP PACKAGING Tu Landeros MD [facility] CPT-23692 Level 4 Est. Patient 16:24:02 VP PACKAGING Tu Landeros MD [facility] CPT-77327 Level 3 Est. Patient 17:21:23 VP PACKAGING Tu Landeros MD [facility] Procedures Code Procedure Name Date Entry Date Standard Description CPT-78794 Shoulder, right, comp min 2V - XRAY USE ONLY 13:50:22 CDT CPT-G0009 Administration of Pneumococcal Vaccine 15:08:26 CDT CPT-11680 Prevnar 13 Intramuscular Suspension 15:08:26 CDT 10/08 CPT-G0439 [facility] Annual Wellness Exam 14:29:22 CDT CPT-84936 Venipuncture Draw Fee 13:15:35 CDT CPT-01396 Magnesium - LAB USE ONLY 11:14:20 VP PACKAGING CPT-47694 Lipid - LAB USE ONLY 11:14:20 VP PACKAGING CPT-64318 HGBA1C - LAB USE ONLY 11:14:20 VP PACKAGING CPT-87717 CMP - LAB USE ONLY 11:14:19 VP PACKAGING CPT-98810 CBC - LAB USE ONLY 11:14:19 VP PACKAGING CPT-46177 Venipuncture Draw Fee 11:14:18 VP PACKAGING CPT-61903 First Vx - Ix admin for Medicare patients 16:46:52 CDT CPT-75768 Fluzone Preservative Free Intramuscular Suspension 16:46 :51 CDT CPT-23880 CBC - LAB USE ONLY 17:14:46 CDT CPT-44201 HGBA1C - LAB USE ONLY 17:14:46 CDT CPT-10978 Venipuncture Draw Fee 17:14:46 CDT CPT-G0438 Initial Annual Wellness Exam 14:13:04 CDT CPT-25371 Breathing Tx 10:06:54 VP PACKAGING CPT-14727 Postop F/U Visit 10:02:45 CDT CPT-LR Lesion Removal 09:02:56 CDT CPT-JTINJ Asp/Joint Injection 15:51:27 VP PACKAGING CPT-OV Office Visit 15:52:02 VP PACKAGING CPT-OV Office Visit 15:45:11 CDT CPT-000 Give Zostavax 14:09:06 CDT CPT-10408 Administration single or combination vaccine inc oral 15 :19:04 CDT CPT-25210 Zoster Vaccine (Zostavax) 15:19:04 CDT CPT-74282 Administration single or combination vaccine inc oral 20 :51:03 CDT CPT-41234 Influenza split virus > age 3 20:51:03 CDT CPT-85587 No Charge Offi Visit 14:52:03 CDT CPT-OV Office Visit 14:57:43 CDT CPT-OV Office Visit 15:22:32 CDT CPT-46393 Administration single or combination vaccine inc oral 11 :33:15 CDT CPT-49163 Influenza split virus > age 3 11:33:15 CDT
--- OUTSIDE RECORDS SUMMARY | 2018-04-25 18:25 | XMS REPORT | Clinical Summary ---
Author Author Admin, SACHI Organization [employer] Address Unknown Phone Unavailable Allergies, Adverse Reactions, [...] gastroenteritis and colitis DIZZINESS 780.4 Resolved Tu Lnaderos MD Dizziness and giddiness BENIGN PAROXYSMAL POSITIONAL [...] parts of trunk, complicated 879.7 Resolved Tu Landerso MD Open wound of other and unspecified parts of trunk, complicated Knee pain, left, acute 719.46 Resolved Tu Landeros MD Pain in joint involving lower leg Osteoarthritis 715.90 Active Tu Landeros MD Osteoarthrosis, unspecified whether generalized or localized, involving unspecified site Ear pain, bilateral 388.70 Resolved Tu Landerso MD Otalgia, unspecified Hot flashes 627.2 Resolved [...] Sinusitis - acute 461.9 Active 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, unspecified Leg pain, left 729.5 [...] hours if needed for cough/congestion ALBUTEROL SULFATE 80093542654 Active Miranda Suresh APRN Active ZITHROMAX 250 MG TAB 2 po today, then 1 po q days 2-5 AZITHROMYCIN 39780785397 No Longer Active Miranda Suresh APRN Active METFORMIN HCL 1000 MG TABS 1 tablet by mouth twice daily METFORMIN HCL 32166648168 Active Tu Landeros MD Active FLONASE 50 MCG/ACT SUSP 1 spray each nostril twice daily until bottle empty FLUTICASONE PROPIONATE 49712717296 No Longer Active Tu Landeros MD Active COLACE 100 MG CAP 1 po BID PRN Constipation DOCUSATE SODIUM 13209823001 Active Tu Landeros MD Active SIMVASTATIN 40 MG TABS 0.5 tab daily at bedtime SIMVASTATIN 58319639526 Active JASPREET Moffett Active TRUERESULT BLOOD GLUCOSE W/DEVICE KIT test blood sugar twice daily dx 250.00 BLOOD GLUCOSE MONITORING SUPPL 77219966288 No Longer Active Tu Landeros MD Active TRUEDRAW LANCING DEVICE MISC Test twice a day dx 250.0 LANCET DEVICES 69237300793 No Longer Active Tu Landeros MD Active PREDNISONE 20 MG TAB 2 tablets once daily for 2 days, then 1 tablet once daily for 2 days PREDNISONE 93181000158 No Longer Active Tu Landeros MD Active DICLOFENAC SODIUM 50 MG TBEC 1 tablet by mouth three times a day as needed DICLOFENAC SODIUM 20843789542 No Longer Active Fab Morales DO Active TRUEDRAW LANCING DEVICE MISC test blood sugar twice daily dx: 250.00 LANCET DEVICES 48488388198 Active Tu Landeros MD Active TRUETEST TEST INVITR STRP test blood sugar twice daily. DX 250.0 GLUCOSE BLOOD 01181198881 Active Tu Landeros MD Active EMBRACE BLOOD GLUCOSE TEST STRP test blood sugar twice daily DX 250.0 2014 GLUCOSE BLOOD 48336668759 No Longer Active Tu Landeros MD Active TRUETEST TEST STRP test blood sugar three times daily dx: 250.00 GLUCOSE BLOOD 70865502755 No Longer Active Suze VOGEL Active TRUERESULT BLOOD GLUCOSE W/DEVICE KIT use to test blood sugar tid dx: 250.00 BLOOD GLUCOSE MONITORING SUPPL 15857579666 No Longer Active Suzebianca VOGEL Active ALIGN 4 MG CAPS 1 tid PROBIOTIC PRODUCT 30650922612 No Longer Active Shaun Sy MD Active CIPRO 500 MG TABS 1 bid x 14 days start 09-28-13 CIPROFLOXACIN HCL 61399080355 No Longer Active Shaun Sy MD Active TRAMADOL HCL 50 MG TABS 1-2 tablets every 6 hours as needed for pain TRAMADOL HCL 63291416065 Active Simon Smith MD Active HYDROCODONE-ACETAMINOPHEN 5-325 MG TABS 1 tab by mouth every 6 hours as needed for pain HYDROCODONE-ACETAMINOPHEN 79704217727 No Longer Active Tu Landeros MD Active OMEPRAZOLE 20 MG CPDR 1 po q a.m. OMEPRAZOLE 53122705155 Active Tu Landeros MD Active GABAPENTIN 100 MG CAPS 1 po bid GABAPENTIN 66527090729 No Longer Active Tu Landeros MD Active B-12 100 MCG TABS Take one by mouth daily CYANOCOBALAMIN 23048415114 No Longer Active Tu Landeros MD Active GABAPENTIN 100 MG CAPS by mouth twice a day GABAPENTIN 97093937129 Active Tu Landeros MD Active BACTRIM DS 800-160 MG TABS 1 bid x 14 day start 09-28-13 SULFAMETHOXAZOLE-TRIMETHOPRIM 76701022533 No Longer Active Tu Landeros MD Active CARVEDILOL 12.5 MG TABS 1 po BID CARVEDILOL 72416232300 Active Tu Landeros MD Active SUPER B COMPLEX/VITAMIN C TABS 1 qd B COMPLEX-C 78727133709 Active JASPREET Perez Active TRILIPIX 135 MG CPDR 1 q hs CHOLINE FENOFIBRATE 20070210135 Active Tu Landeros MD Active FENOFIBRATE 145 MG TABS 1 po qd FENOFIBRATE 68184357436 No Longer Active JASPREET Perez Active OMEPRAZOLE 20 MG TBEC 1 PO 30 MIN BEFORE 1ST MEAL OMEPRAZOLE 85115318591 No Longer Active JASPREET Perez Active SIMVASTATIN 40 MG TABS Take one by mouth daily SIMVASTATIN 45951402079 No Longer Active JASPREET Perez Active VENLAFAXINE HCL 37.5 MG TABS 1 bid VENLAFAXINE HCL 58394397033 Active Tu Landeros MD Active VENLAFAXINE HCL 75 MG TABS 1 po BID VENLAFAXINE HCL 64217915040 No Longer Active JASPREET Perez Active CIPRO 500 MG TAB 1 tablet by mouth twice daily CIPROFLOXACIN HCL 55877152906 No Longer Active Tu Landeros MD Active VENLAFAXINE HCL 37.5 MG TABS 1 po BID VENLAFAXINE HCL 53596172895 No Longer Active Suzebianca NUNOA Active LAMISIL 250 MG TAB 1 po qd TERBINAFINE HCL 50428047149 No Longer Active Tu Landeros MD Active LORTAB 5 5-500 MG TABS 1/2 to 1 tablet by mouth every 4 hours as needed for pain HYDROCODONE-ACETAMINOPHEN 23902665799 No Longer Active Tu Landeros MD Active ENALAPRIL MALEATE 20 MG TABS 1.5 po qd ENALAPRIL MALEATE 35234612051 Active Tu Landeros MD Active HYDROCODONE-ACETAMINOPHEN 5-500 MG TABS take one po Q 4-6 hours prn HYDROCODONE-ACETAMINOPHEN 26863870419 No Longer Active Tu Landeros MD Active BACTRIM DS 800-160 MG TABS 1 po BID x 7 days SULFAMETHOXAZOLE-TRIMETHOPRIM 66001837305 No Longer Active Tu Landeros MD Active VENLAFAXINE HCL 75 MG TABS 1 po BID VENLAFAXINE HCL 50693781064 No Longer Active Elvira Cervantes MD PhD Active TRAMADOL HCL 50 MG TABS 1 tablets every 6 hours as needed for pain TRAMADOL HCL 19607510609 No Longer Active Tu Landeros MD Active ACCU-CHEK FASTCLIX LANCETS MISC Use to check bloodsugar three times daily as needed LANCETS 48416172627 No Longer Active Tu Landeros MD Active ACCU-CHEK [place] PLUS STRP Use for testing bloodsugars three times daily as needed GLUCOSE BLOOD 65095602168 No Longer Active Tu Landeros MD Active ACCU-CHEK [place] PLUS W/DEVICE KIT Use for testing bloodsugars three times daily as needed BLOOD GLUCOSE MONITORING SUPPL 51636405224 No Longer Active Tu Landeros MD Active SPIRONOLACTONE 25 MG TAB 0.5 tablet by mouth daily SPIRONOLACTONE 86050450101 No Longer Active Tu Landeros MD Active ALPRAZOLAM 0.5 MG TABS 1 tab every 6hrs as needed ALPRAZOLAM 04764586943 No Longer Active Tu Landeros MD Active AUGMENTIN 875-125 MG TAB 1 tab by mouth twice daily with food AMOXICILLIN-POT CLAVULANATE 73703162476 No Longer Active Tu Landeros MD Active PREDNISONE 20 MG TAB 2 tabs daily for 3 days, 1 tab daily for 3 days, 1/2 tab daily for 2 days PREDNISONE 40459425938 No Longer Active Tu Landeros MD Active XANAX 0.5 MG TABS 1 tablet every 6 hrs prn ALPRAZOLAM 11559996808 No Longer Active Tu Landeros MD Active PREDNISONE 20 MG TAB 2 tabs daily for 3 days, 1 tab daily for 3 days, 1/2 tab daily for 2 days PREDNISONE 93051453621 No Longer Active Tu Landeros MD Active TRIAMCINOLONE ACETONIDE 0.1 % OINT Apply to affected areas TID for up to 2 weeks TRIAMCINOLONE ACETONIDE 23197561159 No Longer Active Tu Landeros MD Active LORTAB 5 5-500 MG TABS 1/2 to 1 tablet by mouth every 4 hours as needed for pain HYDROCODONE-ACETAMINOPHEN 69183665148 No Longer Active Tu Landeros MD Active MULTIVITAMINS TABS Take one by mouth daily MULTIPLE VITAMIN 54689889788 No Longer Active Tu Landeros MD Active MELATONIN 5 MG TABS Take one by mouth daily MELATONIN 05010164160 No Longer Active Tu Landeros MD Active SOMA 350 MG TAB 1 po q 6 hours prn spasm CARISOPRODOL 48449455066 No Longer Active Tu Landeros MD Active MECLIZINE HCL 25 MG CHEW TAB 1 four times a day as needed for dizziness 08/05 MECLIZINE HCL 02172482944 No Longer Active Fab Morales DO Active ANGEL BREEZE 2 TEST DISK test tid prn GLUCOSE BLOOD 67697112670 No Longer Active Negra Soctt RN Active REGLAN 10 MG TAB 1 po TID PRN Nausea METOCLOPRAMIDE HCL 90742365785 No Longer Active Tu Landeros MD Active METFORMIN HCL 500 MG TABS 1 PO BID METFORMIN HCL 23036009695 No Longer Active Tu Landeros MD Active AMBIEN 10 MG TAB 1 tab by mouth at bedtime as needed for sleep ZOLPIDEM TARTRATE 28660294632 No Longer Active Tu Landeros MD Active FLUOXETINE HCL 40 MG CAPS 1 po q day FLUOXETINE HCL 98444770257 No Longer Active Mayra Terry Active FISH OIL 1000 MG CAPS Take one by mouth daily OMEGA-3 FATTY ACIDS 81258908684 Active Tu Landeros MD Active GLUCOSAMINE 500 MG TABS Take 2 tab po qd GLUCOSAMINE 73995843024 Active Tu Landeros MD Active TRILIPIX 135 MG CPDR 1 po qd CHOLINE FENOFIBRATE 37279785248 No Longer Active Tu Landeros MD Active ASPIRIN 81 MG CHEW TAB 1 tablet by mouth daily ASPIRIN 57053718034 Active Tu Landeros MD Active FUROSEMIDE 40 MG TAB 1 tablet by mouth daily FUROSEMIDE 07885101347 Active Tu Landeros MD Active REQUIP 2 MG TABS Take one tablet at bedtime prn ROPINIROLE HCL 29736008914 Active Tu Landeros MD Active KLOR-CON 10 10 MEQ CR-TABS TAKE 2 TABS DAILY POTASSIUM CHLORIDE 70949747398 Active Tu Landeros MD Active AMBIEN 10 MG TAB 1 tab by mouth at bedtime as needed for sleep AMBIEN 10 MG TAB 216835 ZOLPIDEM TARTRATE Inactive METFORMIN HCL 500 MG TABS 1 PO BID METFORMIN HCL 500 MG TABS 404571 METFORMIN HCL Inactive REGLAN 10 MG TAB 1 po TID PRN Nausea REGLAN 10 MG TAB 032861 METOCLOPRAMIDE HCL Inactive MECLIZINE HCL 25 MG CHEW TAB 1 four times a day as needed for dizziness 08/05 MECLIZINE HCL 25 MG CHEW TAB 614674 MECLIZINE HCL Inactive SOMA 350 MG TAB 1 po q 6 hours prn spasm SOMA 350 MG TAB 079624 CARISOPRODOL Inactive MELATONIN 5 MG TABS Take one by mouth daily MELATONIN 5 MG TABS 557562 MELATONIN Inactive MULTIVITAMINS TABS Take one by mouth daily MULTIVITAMINS TABS MULTIPLE VITAMIN Inactive LORTAB 5 5-500 MG TABS 1/2 to 1 tablet by mouth every 4 hours as needed for pain LORTAB 5 5-500 MG TABS HYDROCODONE- ACETAMINOPHEN Inactive XANAX 0.5 MG TABS 1 tablet every 6 hrs prn XANAX 0.5 MG TABS 703717 ALPRAZOLAM Inactive AUGMENTIN 875-125 MG TAB 1 tab by mouth twice daily with food AUGMENTIN 875-125 MG TAB 496844 AMOXICILLIN-POT CLAVULANATE Inactive ALPRAZOLAM 0.5 MG TABS 1 tab every 6hrs as needed ALPRAZOLAM 0.5 MG TABS 740570 ALPRAZOLAM Inactive SPIRONOLACTONE 25 MG TAB 0.5 tablet by mouth daily SPIRONOLACTONE 25 MG TAB 753727 SPIRONOLACTONE Inactive ACCU-CHEK KEYONA PLUS W/DEVICE KIT Use for testing bloodsugars three times daily as needed ACCU-CHEK KEY[place] PLUS W/DEVICE KIT BLOOD GLUCOSE MONITORING SUPPL Inactive ACCU-CHEK [place] PLUS STRP Use for testing bloodsugars three times daily as needed ACCU-CHEK KEY[place] PLUS STRP GLUCOSE BLOOD Inactive ACCU-CHEK FASTCLIX LANCETS MISC Use to check bloodsugar three times daily as needed ACCU-CHEK FASTCLIX LANCETS MISC 98137066126 LANCETS Inactive TRAMADOL HCL 50 MG TABS 1 tablets every 6 hours as needed for pain TRAMADOL HCL 50 MG TABS 546293 TRAMADOL HCL Inactive VENLAFAXINE HCL 75 MG TABS 1 po BID VENLAFAXINE HCL 75 MG TABS 503499 VENLAFAXINE HCL Inactive HYDROCODONE-ACETAMINOPHEN 5-500 MG TABS take one po Q 4-6 hours prn HYDROCODONE-ACETAMINOPHEN 5-500 MG TABS HYDROCODONE- ACETAMINOPHEN Inactive LORTAB 5 5-500 MG TABS 1/2 to 1 tablet by mouth every 4 hours as needed for pain LORTAB 5 5-500 MG TABS HYDROCODONE- ACETAMINOPHEN Inactive LAMISIL 250 MG TAB 1 po qd LAMISIL 250 MG TAB 900085 TERBINAFINE HCL Inactive VENLAFAXINE HCL 37.5 MG TABS 1 po BID VENLAFAXINE HCL 37.5 MG TABS 039469 VENLAFAXINE HCL Inactive CIPRO 500 MG TAB 1 tablet by mouth twice daily CIPRO 500 MG TAB 247638 CIPROFLOXACIN HCL Inactive VENLAFAXINE HCL 75 MG TABS 1 po BID VENLAFAXINE HCL 75 MG TABS 201186 VENLAFAXINE HCL Inactive SIMVASTATIN 40 MG TABS Take one by mouth daily SIMVASTATIN 40 MG TABS 077255 SIMVASTATIN Inactive OMEPRAZOLE 20 MG TBEC 1 PO 30 MIN BEFORE 1ST MEAL OMEPRAZOLE 20 MG TBEC 002499 OMEPRAZOLE Inactive FENOFIBRATE 145 MG TABS 1 po qd FENOFIBRATE 145 MG TABS 817815 FENOFIBRATE Inactive BACTRIM DS 800-160 MG TABS 1 bid x 14 day start 09-28-13 BACTRIM DS 800-160 MG TABS 624549 SULFAMETHOXAZOLE-TRIMETHOPRIM Inactive B-12 100 MCG TABS Take one by mouth daily B-12 100 MCG TABS CYANOCOBALAMIN Inactive GABAPENTIN 100 MG CAPS 1 po bid GABAPENTIN 100 MG CAPS 207933 GABAPENTIN Inactive HYDROCODONE-ACETAMINOPHEN 5-325 MG TABS 1 tab by mouth every 6 hours as needed for pain HYDROCODONE-ACETAMINOPHEN 5-325 MG TABS 219039 HYDROCODONE-ACETAMINOPHEN Inactive CIPRO 500 MG TABS 1 bid x 14 days start 09-28-13 CIPRO 500 MG TABS 921519 CIPROFLOXACIN HCL Inactive ALIGN 4 MG CAPS [...] as needed DICLOFENAC SODIUM 50 MG TBEC 280419 DICLOFENAC SODIUM Inactive PREDNISONE 20 MG TAB 2 tablets once daily for 2 days, then 1 tablet once daily for 2 days PREDNISONE 20 MG TAB 731043 PREDNISONE Inactive TRUEDRAW LANCING DEVICE MISC Test [...] 2 weeks TRIAMCINOLONE ACETONIDE 0.1 % OINT 1539942 TRIAMCINOLONE ACETONIDE Inactive PREDNISONE 20 MG TAB 2 tabs daily for 3 days, 1 tab daily for 3 days, 1/2 tab daily for 2 days PREDNISONE 20 MG TAB 103339 PREDNISONE Inactive PREDNISONE 20 MG TAB 2 tabs daily for 3 days, 1 tab daily for 3 days, 1/2 tab daily for 2 days PREDNISONE 20 MG TAB 703384 PREDNISONE Inactive BACTRIM DS 800-160 MG TABS 1 po BID x 7 days BACTRIM DS 800-160 MG TABS 519324 SULFAMETHOXAZOLE-TRIMETHOPRIM Inactive ZITHROMAX 250 MG TAB 2 po today, then 1 po q days 2-5 ZITHROMAX 250 MG TAB 9619561 AZITHROMYCIN Inactive Immunizations Vaccine Administration Date Value Standard Description Seasonal influenza vaccine, injectable, containing preservative, for > 3 years old (Afluria, FluLaval, Fluzone, Fluvirin, Fluarix, Agriflu(>=18 yo)) Fluzone (>3 yrs.) [[id number]] Influenza, seasonal, injectable influenza immunization (Flu Vax) has been administered 02/22/2012 influenza virus vaccine, unspecified formulation Seasonal influenza vaccine, injectable, containing preservative, for > 3 years old (Afluria, FluLaval, Fluzone, Fluvirin, Fluarix, Agriflu(>=18 yo)) Fluzone (>3 yrs.) [[id number]] Influenza, seasonal, injectable Vital Signs Date Name [...] MICROALBUMIN - Chemistry sodium, serum 142 mmol/L 582-473 7603/10/08 potassium, serum 4.5 mmol/L 3.5-5.2 chloride, serum [...] 0.30 mg/dL 0.00-1.00 cholesterol, serum 111 mg/dL 508-407 5312/07/28 triglyceride, serum, fasting 177 mg/dL 30-200 HDL [...] Panel - Chemistry cholesterol, serum 124 mg/dL 393-586 6325/01/12 triglyceride, serum, fasting 135 mg/dL 30-200 HDL cholesterol, serum 41 mg/dL 32-96 LDL cholesterol, serum 56 mg/dL 0-130 sodium, serum 140 mmol/L 027-220 9027/01/12 carbon dioxide, venous blood 27.7 mmol/L 21.0-32.0 potassium, serum 4.5 mmol/L 3.5-5.2 chloride, serum 104 mmol/L 98-107 blood glucose 139 mg/dL 65-110 urea nitrogen, blood 16 mg/dL 7-18 alanine aminotransferase (SGPT), serum 32 U/L 12-78 aspartate aminotransferase (SGOT), serum 25 U/L 15-37 calcium, serum 9.1 mg/dL 8.5-10.1 bilirubin, serum, total 0.50 mg/dL 0.00-1.00 Encounters Code Encounter Date Provider Facility CPT-12872 Level 4 Est. Patient 14:06:04 POWERHOUSE MECHANIC SUPERVISOR Tu Landeros MD [facility] CPT-66573 Level 3 Est. Patient 14:05:18 POWERHOUSE MECHANIC SUPERVISOR Tu Landeros MD [facility] CPT-26695 Level 3 Est. Patient 10:06:54 POWERHOUSE MECHANIC SUPERVISOR Miranda Suresh APRN [facility] CPT-83189 Level 4 Est. Patient 13:50:18 POWERHOUSE MECHANIC SUPERVISOR Tu Landeros MD [facility] CPT-45925 Level 3 Est. Patient 10:30:04 CDT Tu Landeros MD [facility] CPT-99621 Level 4 Est. Patient 11:03:38 CDT Tu Landeros MD [facility] CPT-96223 Level 3 Est. Patient 10:20:44 CDT Fab Morales DO [facility] CPT-85355 Level 4 Est. Patient 14:38:57 CDT Tu Landeros MD [facility] CPT-73350 Level 4 Est. Patient 14:27:39 POWERHOUSE MECHANIC SUPERVISOR Tu Landeros MD [facility] CPT-39252 Level 4 Est. Patient 09:45:25 CDT Tu Landeros MD [facility] CPT-16679 Level 4 Est. Patient 09:05:20 POWERHOUSE MECHANIC SUPERVISOR Tu Landeros MD [facility] CPT-52366 Level 4 Est. Patient 14:09:06 CDT Tu Landeros MD [facility] CPT-75977 Level 3 Est. Patient 13:36:54 CDT Tu Landeros MD [facility] CPT-02683 Level 3 Est. Patient 08:59:14 CDT Tu Landeros MD [facility] CPT-92302 Level 3 Est. Patient 13:48:35 CDT Fab Morales DO [facility] CPT-55993 Level 4 Est. Patient 10:05:48 CDT Tu Landeros MD [facility] CPT-09316 Level 3 Est. Patient 13:38:42 CDT Marek BANKS [facility] CPT-68400 Level 5 Est. Patient 08:08:39 CDT Jerrica FRANCIS [facility] CPT-70219 Level 4 Est. Patient 14:23:38 CDT Tu Landeros MD [facility] CPT-33740 Level 3 Est. Patient 11:44:04 CDT Tu Landeros MD [facility] CPT-02567 Level 3 Est. Patient 11:03:20 POWERHOUSE MECHANIC SUPERVISOR Tu Landeros MD [facility] CPT-08103 Level 3 Est. Patient 11:03:14 POWERHOUSE MECHANIC SUPERVISOR Tu Landeros MD [facility] CPT-99433 Level 3 Est. Patient 12:42:49 CDT Tu Landeros MD [facility] CPT-66928 Level 3 Est. Patient 11:52:06 CDT Tu Landeros MD [facility] CPT-86445 Level 3 Est. Patient 13:58:11 CDT Tu Landeros MD [facility] CPT-96173 Level 3 Est. Patient 17:50:07 CDT Fab Morales DO [facility] CPT-17386 Level 3 Est. Patient 12:06:29 CDT Elvira Cervantes MD, PhD [facility] CPT-00406 Level 3 Est. Patient 15:50:32 CDT Tu Landeros MD [facility] CPT-26689 Level 4 Est. Patient 16:08:29 CDT Tu Landeros MD [facility] CPT-79029 Level 3 Est. Patient 16:04:19 CDT Tu Landeros MD [facility] CPT-24149 Level 3 Est. Patient 11:22:30 POWERHOUSE MECHANIC SUPERVISOR Tu Landeros MD [facility] CPT-84960 Level 4 Est. Patient 16:24:02 POWERHOUSE MECHANIC SUPERVISOR Tu Landeros MD [facility] CPT-28533 Level 3 Est. Patient 17:21:23 POWERHOUSE MECHANIC SUPERVISOR Tu Landeros MD [facility] Procedures Code Procedure Name Date Entry Date Standard Description CPT-09857 Breathing Tx 10:06:54 POWERHOUSE MECHANIC SUPERVISOR CPT-49452 Postop F/U Visit 10:02:45 CDT CPT-LR Lesion Removal 09:02:56 CDT CPT-JTINJ Asp/Joint Injection 15:51:27 POWERHOUSE MECHANIC SUPERVISOR CPT-OV Office Visit 15:52:02 POWERHOUSE MECHANIC SUPERVISOR CPT-OV Office Visit 15:45:11 CDT CPT-000 Give Zostavax 14:09:06 CDT CPT-80142 Administration single or combination vaccine inc oral 15 :19:04 CDT CPT-01494 Zoster Vaccine (Zostavax) 15:19:04 CDT CPT-98446 Administration single or combination vaccine inc oral 20 :51:03 CDT CPT-44660 Influenza split virus > age 3 20:51:03 CDT CPT-16563 No Charge Offi Visit 14:52:03 CDT CPT-OV Office Visit 14:57:43 CDT CPT-OV Office Visit 15:22:32 CDT CPT-36330 Administration single or combination vaccine inc oral 11 :33:15 CDT CPT-41453 Influenza split virus > age 3 11:33:15 CDT
--- OUTSIDE RECORDS SUMMARY | 2018-04-25 18:26 | XMS REPORT | Clinical Summary ---
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 Acute sinusitis, unspecified Leg pain, left 729.5 [...] hours if needed for cough/congestion ALBUTEROL SULFATE 26929626555 Active Miranda Suresh APRN Active ZITHROMAX 250 MG TAB 2 po today, then 1 po q days 2-5 AZITHROMYCIN 72099733475 No Longer Active Miranda Suresh APRN Active METFORMIN HCL 1000 MG TABS 1 tablet by mouth twice daily METFORMIN HCL 83631102301 Active Tu Landeros MD Active FLONASE 50 MCG/ACT SUSP 1 spray each nostril twice daily until bottle empty FLUTICASONE PROPIONATE 83231385133 No Longer Active Tu Landeros MD Active COLACE 100 MG CAP 1 po BID PRN Constipation DOCUSATE SODIUM 61980486083 Active Tu Landeros MD Active SIMVASTATIN 40 MG TABS 0.5 tab daily at bedtime SIMVASTATIN 66693185454 Active JASPREET Moffett Active TRUERESULT BLOOD GLUCOSE W/DEVICE KIT test blood sugar twice daily dx 250.00 BLOOD GLUCOSE MONITORING SUPPL 45597259961 No Longer Active Tu Landeros MD Active TRUEDRAW LANCING DEVICE MISC Test twice a day dx 250.0 LANCET DEVICES 16813863944 No Longer Active Tu Landeros MD Active PREDNISONE 20 MG TAB 2 tablets once daily for 2 days, then 1 tablet once daily for 2 days PREDNISONE 19865456617 No Longer Active Tu Landeros MD Active DICLOFENAC SODIUM 50 MG TBEC 1 tablet by mouth three times a day as needed DICLOFENAC SODIUM 91851183960 No Longer Active Fab Morales DO Active TRUEDRAW LANCING DEVICE MISC test blood sugar twice daily dx: 250.00 LANCET DEVICES 36876065755 Active Tu Landeros MD Active TRUETEST TEST INVITR STRP test blood sugar twice daily. DX 250.0 GLUCOSE BLOOD 38197222512 Active Tu Landeros MD Active EMBRACE BLOOD GLUCOSE TEST STRP test blood sugar twice daily DX 250.0 2014 GLUCOSE BLOOD 97043311047 No Longer Active Tu Landeros MD Active TRUETEST TEST STRP test blood sugar three times daily dx: 250.00 GLUCOSE BLOOD 64210723727 No Longer Active Suze VOGEL Active TRUERESULT BLOOD GLUCOSE W/DEVICE KIT use to test blood sugar tid dx: 250.00 BLOOD GLUCOSE MONITORING SUPPL 39533619138 No Longer Active Suzebianca VOGEL Active ALIGN 4 MG CAPS 1 tid PROBIOTIC PRODUCT 43254763366 No Longer Active Shaun Sy MD Active CIPRO 500 MG TABS 1 bid x 14 days start 09-28-13 CIPROFLOXACIN HCL 35971675277 No Longer Active Shaun Sy MD Active TRAMADOL HCL 50 MG TABS 1-2 tablets every 6 hours as needed for pain TRAMADOL HCL 07483799827 Active Simon Smith MD Active HYDROCODONE-ACETAMINOPHEN 5-325 MG TABS 1 tab by mouth every 6 hours as needed for pain HYDROCODONE-ACETAMINOPHEN 78571698744 No Longer Active Tu Landeros MD Active OMEPRAZOLE 20 MG CPDR 1 po q a.m. OMEPRAZOLE 76729753106 Active Tu Landeros MD Active GABAPENTIN 100 MG CAPS 1 po bid GABAPENTIN 07460170574 No Longer Active Tu Landeros MD Active B-12 100 MCG TABS Take one by mouth daily CYANOCOBALAMIN 42585011257 No Longer Active Tu Landeros MD Active GABAPENTIN 100 MG CAPS by mouth twice a day GABAPENTIN 00273849635 Active Tu Landeros MD Active BACTRIM DS 800-160 MG TABS 1 bid x 14 day start 09-28-13 SULFAMETHOXAZOLE-TRIMETHOPRIM 84242494018 No Longer Active Tu Landeros MD Active CARVEDILOL 12.5 MG TABS 1 po BID CARVEDILOL 98210928063 Active Tu Landeros MD Active SUPER B COMPLEX/VITAMIN C TABS 1 qd B COMPLEX-C 85295992262 Active JASPREET Perez Active TRILIPIX 135 MG CPDR 1 q hs CHOLINE FENOFIBRATE 00974595336 Active Tu Landeros MD Active FENOFIBRATE 145 MG TABS 1 po qd FENOFIBRATE 90290862209 No Longer Active JASPREET Perez Active OMEPRAZOLE 20 MG TBEC 1 PO 30 MIN BEFORE 1ST MEAL OMEPRAZOLE 91871852291 No Longer Active JASPREET Perez Active SIMVASTATIN 40 MG TABS Take one by mouth daily SIMVASTATIN 27244651684 No Longer Active JASPREET Perez Active VENLAFAXINE HCL 37.5 MG TABS 1 bid VENLAFAXINE HCL 84067862017 Active Tu Landeros MD Active VENLAFAXINE HCL 75 MG TABS 1 po BID VENLAFAXINE HCL 57268557615 No Longer Active JASPREET Perez Active CIPRO 500 MG TAB 1 tablet by mouth twice daily CIPROFLOXACIN HCL 94503587390 No Longer Active Tu Landeros MD Active VENLAFAXINE HCL 37.5 MG TABS 1 po BID VENLAFAXINE HCL 92513176945 No Longer Active Suzebianca NUNOA Active LAMISIL 250 MG TAB 1 po qd TERBINAFINE HCL 67098056810 No Longer Active Tu Landeros MD Active LORTAB 5 5-500 MG TABS 1/2 to 1 tablet by mouth every 4 hours as needed for pain HYDROCODONE-ACETAMINOPHEN 60563630441 No Longer Active Tu Landeros MD Active ENALAPRIL MALEATE 20 MG TABS 1.5 po qd ENALAPRIL MALEATE 22863520522 Active Tu Landeros MD Active HYDROCODONE-ACETAMINOPHEN 5-500 MG TABS take one po Q 4-6 hours prn HYDROCODONE-ACETAMINOPHEN 29367416984 No Longer Active Tu Landeros MD Active BACTRIM DS 800-160 MG TABS 1 po BID x 7 days SULFAMETHOXAZOLE-TRIMETHOPRIM 28161067336 No Longer Active Tu Landeros MD Active VENLAFAXINE HCL 75 MG TABS 1 po BID VENLAFAXINE HCL 88979438838 No Longer Active Elvira Cervantes MD PhD Active TRAMADOL HCL 50 MG TABS 1 tablets every 6 hours as needed for pain TRAMADOL HCL 52917226640 No Longer Active Tu Landeros MD Active ACCU-CHEK FASTCLIX LANCETS MISC Use to check bloodsugar three times daily as needed LANCETS 24968547445 No Longer Active Tu Landeros MD Active ACCU-CHEK KEYONA PLUS STRP Use for testing bloodsugars three times daily as needed GLUCOSE BLOOD 96894211167 No Longer Active Tu Landeros MD Active ACCU-CHEK KEYONA PLUS W/DEVICE KIT Use for testing bloodsugars three times daily as needed BLOOD GLUCOSE MONITORING SUPPL 27620547406 No Longer Active Tu Landeros MD Active SPIRONOLACTONE 25 MG TAB 0.5 tablet by mouth daily SPIRONOLACTONE 74226181707 No Longer Active Tu Landeros MD Active ALPRAZOLAM 0.5 MG TABS 1 tab every 6hrs as needed ALPRAZOLAM 13456713342 No Longer Active Tu Landeros MD Active AUGMENTIN 875-125 MG TAB 1 tab by mouth twice daily with food AMOXICILLIN-POT CLAVULANATE 12349133616 No Longer Active Tu Landeros MD Active PREDNISONE 20 MG TAB 2 tabs daily for 3 days, 1 tab daily for 3 days, 1/2 tab daily for 2 days PREDNISONE 58479332264 No Longer Active Tu Landeros MD Active XANAX 0.5 MG TABS 1 tablet every 6 hrs prn ALPRAZOLAM 47653939842 No Longer Active Tu Landeros MD Active PREDNISONE 20 MG TAB 2 tabs daily for 3 days, 1 tab daily for 3 days, 1/2 tab daily for 2 days PREDNISONE 14737983572 No Longer Active Tu Landeros MD Active TRIAMCINOLONE ACETONIDE 0.1 % OINT Apply to affected areas TID for up to 2 weeks TRIAMCINOLONE ACETONIDE 26329090675 No Longer Active Tu Landeros MD Active LORTAB 5 5-500 MG TABS 1/2 to 1 tablet by mouth every 4 hours as needed for pain HYDROCODONE-ACETAMINOPHEN 76389325692 No Longer Active Tu Landeros MD Active MULTIVITAMINS TABS Take one by mouth daily MULTIPLE VITAMIN 21692420349 No Longer Active Tu Landeros MD Active MELATONIN 5 MG TABS Take one by mouth daily MELATONIN 10170877162 No Longer Active Tu Landeros MD Active SOMA 350 MG TAB 1 po q 6 hours prn spasm CARISOPRODOL 49184816735 No Longer Active Tu Landeros MD Active MECLIZINE HCL 25 MG CHEW TAB 1 four times a day as needed for dizziness 08/05 MECLIZINE HCL 20852597612 No Longer Active Fab Morales DO Active ANGEL BREEZE 2 TEST DISK test tid prn GLUCOSE BLOOD 82578870924 No Longer Active Negra Scott RN Active REGLAN 10 MG TAB 1 po TID PRN [place] METOCLOPRAMIDE HCL 74541759515 No Longer Active Tu Landeros MD Active METFORMIN HCL 500 MG TABS 1 PO BID METFORMIN HCL 25831613137 No Longer Active Tu Landeros MD Active AMBIEN 10 MG TAB 1 tab by mouth at bedtime as needed for sleep ZOLPIDEM TARTRATE 05553608108 No Longer Active Tu Landeros MD Active FLUOXETINE HCL 40 MG CAPS 1 po q day FLUOXETINE HCL 90214489256 No Longer Active Mayra Terry Active FISH OIL 1000 MG CAPS Take one by mouth daily OMEGA-3 FATTY ACIDS 53330551245 Active Tu Landeros MD Active GLUCOSAMINE 500 MG TABS Take 2 tab po qd GLUCOSAMINE 36004243264 Active Tu Landeros MD Active TRILIPIX 135 MG CPDR 1 po qd CHOLINE FENOFIBRATE 15631295855 No Longer Active Tu Landeros MD Active ASPIRIN 81 MG CHEW TAB 1 tablet by mouth daily ASPIRIN 23976297021 Active Tu Landeros MD Active FUROSEMIDE 40 MG TAB 1 tablet by mouth daily FUROSEMIDE 96845229009 Active Tu Landeros MD Active REQUIP 2 MG TABS Take one tablet at bedtime prn ROPINIROLE HCL 09641926344 Active uT Landeros MD Active KLOR-CON 10 10 MEQ CR-TABS TAKE 2 TABS DAILY POTASSIUM CHLORIDE 78786800835 Active Tu Landeros MD Active AMBIEN 10 MG TAB 1 tab by mouth at bedtime as needed for sleep AMBIEN 10 MG TAB 727999 ZOLPIDEM TARTRATE Inactive METFORMIN HCL 500 MG TABS 1 PO BID METFORMIN HCL 500 MG TABS 354177 METFORMIN HCL Inactive REGLAN 10 MG TAB 1 po TID PRN Nausea REGLAN 10 MG TAB 445437 METOCLOPRAMIDE HCL Inactive MECLIZINE HCL 25 MG CHEW TAB 1 four times a day as needed for dizziness 08/05 MECLIZINE HCL 25 MG CHEW TAB 536325 MECLIZINE HCL Inactive SOMA 350 MG TAB 1 po q 6 hours prn spasm SOMA 350 MG TAB 424835 CARISOPRODOL Inactive MELATONIN 5 MG TABS Take one by mouth daily MELATONIN 5 MG TABS 717737 MELATONIN Inactive MULTIVITAMINS TABS Take one by mouth daily MULTIVITAMINS TABS MULTIPLE VITAMIN Inactive LORTAB 5 5-500 MG TABS 1/2 to 1 tablet by mouth every 4 hours as needed for pain LORTAB 5 5-500 MG TABS HYDROCODONE- ACETAMINOPHEN Inactive XANAX 0.5 MG TABS 1 tablet every 6 hrs prn XANAX 0.5 MG TABS 728485 ALPRAZOLAM Inactive AUGMENTIN 875-125 MG TAB 1 tab by mouth twice daily with food AUGMENTIN 875-125 MG TAB 022786 AMOXICILLIN-POT CLAVULANATE Inactive ALPRAZOLAM 0.5 MG TABS 1 tab every 6hrs as needed ALPRAZOLAM 0.5 MG TABS 269190 ALPRAZOLAM Inactive SPIRONOLACTONE 25 MG TAB 0.5 tablet by mouth daily SPIRONOLACTONE 25 MG TAB 007549 SPIRONOLACTONE Inactive ACCU-CHEK KEYONA PLUS W/DEVICE KIT Use for testing bloodsugars three times daily as needed ACCU-CHEK KEYONA PLUS W/DEVICE KIT BLOOD GLUCOSE MONITORING SUPPL Inactive ACCU-CHEK KEYONA PLUS STRP Use for testing bloodsugars three times daily as needed ACCU-CHEK KEYONA PLUS STRP GLUCOSE BLOOD Inactive ACCU-CHEK FASTCLIX LANCETS MISC Use to check bloodsugar three times daily as needed ACCU-CHEK FASTCLIX LANCETS MISC 80916170184 LANCETS Inactive TRAMADOL HCL 50 MG TABS 1 tablets every 6 hours as needed for pain TRAMADOL HCL 50 MG TABS 658016 TRAMADOL HCL Inactive VENLAFAXINE HCL 75 MG TABS 1 po BID VENLAFAXINE HCL 75 MG TABS 648542 VENLAFAXINE HCL Inactive HYDROCODONE-ACETAMINOPHEN 5-500 MG TABS take one po Q 4-6 hours prn HYDROCODONE-ACETAMINOPHEN 5-500 MG TABS HYDROCODONE- ACETAMINOPHEN Inactive LORTAB 5 5-500 MG TABS 1/2 to 1 tablet by mouth every 4 hours as needed for pain LORTAB 5 5-500 MG TABS HYDROCODONE- ACETAMINOPHEN Inactive LAMISIL 250 MG TAB 1 po qd LAMISIL 250 MG TAB 469747 TERBINAFINE HCL Inactive VENLAFAXINE HCL 37.5 MG TABS 1 po BID VENLAFAXINE HCL 37.5 MG TABS 830810 VENLAFAXINE HCL Inactive CIPRO 500 MG TAB 1 tablet by mouth twice daily CIPRO 500 MG TAB 260856 CIPROFLOXACIN HCL Inactive VENLAFAXINE HCL 75 MG TABS 1 po BID VENLAFAXINE HCL 75 MG TABS 262743 VENLAFAXINE HCL Inactive SIMVASTATIN 40 MG TABS Take one by mouth daily SIMVASTATIN 40 MG TABS 219846 SIMVASTATIN Inactive OMEPRAZOLE 20 MG TBEC 1 PO 30 MIN BEFORE 1ST MEAL OMEPRAZOLE 20 MG TBEC 299907 OMEPRAZOLE Inactive FENOFIBRATE 145 MG TABS 1 po qd FENOFIBRATE 145 MG TABS 828254 FENOFIBRATE Inactive BACTRIM DS 800-160 MG TABS 1 bid x 14 day start 09-28-13 BACTRIM DS 800-160 MG TABS 751995 SULFAMETHOXAZOLE-TRIMETHOPRIM Inactive B-12 100 MCG TABS Take one by mouth daily B-12 100 MCG TABS CYANOCOBALAMIN Inactive GABAPENTIN 100 MG CAPS 1 po bid GABAPENTIN 100 MG CAPS 033489 GABAPENTIN Inactive HYDROCODONE-ACETAMINOPHEN 5-325 MG TABS 1 tab by mouth every 6 hours as needed for pain HYDROCODONE-ACETAMINOPHEN 5-325 MG TABS 741999 HYDROCODONE-ACETAMINOPHEN Inactive CIPRO 500 MG TABS 1 bid x 14 days start 09-28-13 CIPRO 500 MG TABS 129006 CIPROFLOXACIN HCL Inactive ALIGN 4 MG CAPS [...] as needed DICLOFENAC SODIUM 50 MG TBEC 411698 DICLOFENAC SODIUM Inactive PREDNISONE 20 MG TAB 2 tablets once daily for 2 days, then 1 tablet once daily for 2 days PREDNISONE 20 MG TAB 124076 PREDNISONE Inactive TRUEDRAW LANCING DEVICE MISC Test [...] 2 weeks TRIAMCINOLONE ACETONIDE 0.1 % OINT 6657962 TRIAMCINOLONE ACETONIDE Inactive PREDNISONE 20 MG TAB 2 tabs daily for 3 days, 1 tab daily for 3 days, 1/2 tab daily for 2 days PREDNISONE 20 MG TAB 031553 PREDNISONE Inactive PREDNISONE 20 MG TAB 2 tabs daily for 3 days, 1 tab daily for 3 days, 1/2 tab daily for 2 days PREDNISONE 20 MG TAB 376818 PREDNISONE Inactive BACTRIM DS 800-160 MG TABS 1 po BID x 7 days BACTRIM DS 800-160 MG TABS 935418 SULFAMETHOXAZOLE-TRIMETHOPRIM Inactive ZITHROMAX 250 MG TAB 2 po today, then 1 po q days 2-5 ZITHROMAX 250 MG TAB 6125648 AZITHROMYCIN Inactive Immunizations Vaccine Administration Date Value Standard Description Seasonal influenza vaccine, injectable, containing preservative, for > 3 years old (Afluria, FluLaval, Fluzone, Fluvirin, Fluarix, Agriflu(>=18 yo)) Fluzone (>3 yrs.) [[id number]] Influenza, seasonal, injectable influenza immunization (Flu Vax) has been administered 02/22/2012 influenza virus vaccine, unspecified formulation Seasonal influenza vaccine, injectable, containing preservative, for > 3 years old (Afluria, FluLaval, Fluzone, Fluvirin, Fluarix, Agriflu(>=18 yo)) Fluzone (>3 yrs.) [[id number]] Influenza, seasonal, injectable Vital Signs Date Name [...] MICROALBUMIN - Chemistry sodium, serum 142 mmol/L 583-351 2474/10/08 potassium, serum 4.5 mmol/L 3.5-5.2 chloride, serum [...] 0.30 mg/dL 0.00-1.00 cholesterol, serum 111 mg/dL 104-646 0435/07/28 triglyceride, serum, fasting 177 mg/dL 30-200 HDL [...] Panel - Chemistry cholesterol, serum 124 mg/dL 220-228 1901/01/12 triglyceride, serum, fasting 135 mg/dL 30-200 HDL cholesterol, serum 41 mg/dL 32-96 LDL cholesterol, serum 56 mg/dL 0-130 sodium, serum 140 mmol/L 053-125 2262/01/12 carbon dioxide, venous blood 27.7 mmol/L 21.0-32.0 potassium, serum 4.5 mmol/L 3.5-5.2 chloride, serum 104 mmol/L 98-107 blood glucose 139 mg/dL 65-110 urea nitrogen, blood 16 mg/dL 7-18 alanine aminotransferase (SGPT), serum 32 U/L 12-78 aspartate aminotransferase (SGOT), serum 25 U/L 15-37 calcium, serum 9.1 mg/dL 8.5-10.1 bilirubin, serum, total 0.50 mg/dL 0.00-1.00 Encounters Code Encounter Date Provider Facility CPT-91556 Level 4 Est. Patient 14:06:04 PHYSICIAN GYNECOLOGIST Tu Landeros MD [facility] CPT-47992 Level 3 Est. Patient 14:05:18 PHYSICIAN GYNECOLOGIST Tu Landeros MD [facility] CPT-62728 Level 3 Est. Patient 10:06:54 PHYSICIAN GYNECOLOGIST Miranda Suresh APRN [facility] CPT-29194 Level 4 Est. Patient 13:50:18 PHYSICIAN GYNECOLOGIST Tu Landeros MD [facility] CPT-07622 Level 3 Est. Patient 10:30:04 CDT Tu Landeros MD [facility] CPT-40229 Level 4 Est. Patient 11:03:38 CDT Tu Landeros MD [facility] CPT-43212 Level 3 Est. Patient 10:20:44 CDT Fab Morales DO [facility] CPT-64885 Level 4 Est. Patient 14:38:57 CDT Tu Landeros MD [facility] CPT-37928 Level 4 Est. Patient 14:27:39 PHYSICIAN GYNECOLOGIST Tu Landeros MD [facility] CPT-46882 Level 4 Est. Patient 09:45:25 CDT Tu Landeros MD [facility] CPT-89301 Level 4 Est. Patient 09:05:20 PHYSICIAN GYNECOLOGIST Tu Landeros MD [facility] CPT-14337 Level 4 Est. Patient 14:09:06 CDT Tu Landeros MD [facility] CPT-40175 Level 3 Est. Patient 13:36:54 CDT Tu Landeros MD [facility] CPT-14373 Level 3 Est. Patient 08:59:14 CDT Tu Landeros MD [facility] CPT-26398 Level 3 Est. Patient 13:48:35 CDT Fab Morales DO [facility] CPT-58372 Level 4 Est. Patient 10:05:48 CDT Tu Landeros MD [facility] CPT-55639 Level 3 Est. Patient 13:38:42 CDT Marek BANKS [facility] CPT-43278 Level 5 Est. Patient 08:08:39 CDT Jerrica FARNCIS [facility] CPT-15238 Level 4 Est. Patient 14:23:38 CDT Tu Landeros MD [facility] CPT-30544 Level 3 Est. Patient 11:44:04 CDT Tu Landeros MD [facility] CPT-91027 Level 3 Est. Patient 11:03:20 PHYSICIAN GYNECOLOGIST Tu Landeros MD [facility] CPT-36855 Level 3 Est. Patient 11:03:14 PHYSICIAN GYNECOLOGIST Tu Landeros MD [facility] CPT-41573 Level 3 Est. Patient 12:42:49 CDT Tu Landeros MD [facility] CPT-47904 Level 3 Est. Patient 11:52:06 CDT Tu Landeros MD [facility] CPT-04516 Level 3 Est. Patient 13:58:11 CDT Tu Landeros MD [facility] CPT-85749 Level 3 Est. Patient 17:50:07 CDT Fab Morales DO [facility] CPT-30766 Level 3 Est. Patient 12:06:29 CDT Elvira Cervantes MD, PhD [facility] CPT-71685 Level 3 Est. Patient 15:50:32 CDT Tu Landeros MD [facility] CPT-23609 Level 4 Est. Patient 16:08:29 CDT Tu Landeros MD [facility] CPT-19570 Level 3 Est. Patient 16:04:19 CDT Tu Landeros MD [facility] CPT-82754 Level 3 Est. Patient 11:22:30 PHYSICIAN GYNECOLOGIST Tu Landeros MD [facility] CPT-28090 Level 4 Est. Patient 16:24:02 PHYSICIAN GYNECOLOGIST Tu Landeros MD [facility] CPT-85644 Level 3 Est. Patient 17:21:23 PHYSICIAN GYNECOLOGIST Tu Landeros MD [facility] Procedures Code Procedure Name Date Entry Date Standard Description CPT-93229 Breathing Tx 10:06:54 PHYSICIAN GYNECOLOGIST CPT-70973 Postop F/U Visit 10:02:45 CDT CPT-LR Lesion Removal 09:02:56 CDT CPT-JTINJ Asp/Joint Injection 15:51:27 PHYSICIAN GYNECOLOGIST CPT-OV Office Visit 15:52:02 PHYSICIAN GYNECOLOGIST CPT-OV Office Visit 15:45:11 CDT CPT-000 Give Zostavax 14:09:06 CDT CPT-46327 Administration single or combination vaccine inc oral 15 :19:04 CDT CPT-38270 Zoster Vaccine (Zostavax) 15:19:04 CDT CPT-08782 Administration single or combination vaccine inc oral 20 :51:03 CDT CPT-19814 Influenza split virus > age 3 20:51:03 CDT CPT-88068 No Charge Offi Visit 14:52:03 CDT CPT-OV Office Visit 14:57:43 CDT CPT-OV Office Visit 15:22:32 CDT CPT-29834 Administration single or combination vaccine inc oral 11 :33:15 CDT CPT-44427 Influenza split virus > age 3 11:33:15 CDT
--- OUTSIDE RECORDS SUMMARY | 2018-04-25 18:28 | XMS REPORT | Clinical Summary ---
Author Author Admin, SACHI Organization [facility] Address Unknown Phone Unavailable Allergies, Adverse Reactions, [...] reflux Restless leg syndrome 333.94 Active Tu Lanedros MD Restless legs syndrome (RLS) Open wound [...] site Sinusitis - acute 461.9 Resolved Tu Lnaderos MD Acute sinusitis, unspecified Leg pain, left [...] blood sugar BID Dx: E11.9 GLUCOSE BLOOD 34720991273 Active Tu Landeros MD Active TRUE METRIX AIR GLUCOSE METER W/DEVICE KIT Test blood glucose BID Dx: E11.9 BLOOD GLUCOSE MONITORING SUPPL 88574157227 Active Tu Landeros MD Active TRUETEST TEST INVITR STRP test blood sugar twice daily. DX 250.0 GLUCOSE BLOOD 64064644956 No Longer Active Mirna Stalney LPN Active TRUEDRAW LANCING DEVICE MISC test blood sugar twice daily dx: 250.00 LANCET DEVICES 41918638733 No Longer Active Mirna Stanley LPN Active ENALAPRIL MALEATE 20 MG TABS 2 po qd ENALAPRIL MALEATE 47551015569 Active Tu Landeros MD Active SUPER B COMPLEX/VITAMIN C TABS 1 qd B COMPLEX-C 83244972996 No Longer Active Tu Landeros MD Active ASPIRIN EC 81 MG ORAL TBEC 1 po qd ASPIRIN 32616828418 Active Tu Landeros MD Active GLUCOSAMINE 500 MG TABS 2 po qd GLUCOSAMINE Active Tu Landeros MD Active SIMVASTATIN 40 MG TABS 0.5 po qHS SIMVASTATIN 96909102907 Active Tu Landeros MD Active FISH OIL 1000 MG CAPS 1 po qd OMEGA-3 FATTY ACIDS 87320328867 Active Tu Landeros MD Active METFORMIN HCL 1000 MG TABS 1 po BID METFORMIN HCL 17433768579 Active Tu Landeros MD Active KLOR-CON 10 10 MEQ CR-TABS 2 po qd POTASSIUM CHLORIDE 42169975402 Active Tu Landeros MD Active FUROSEMIDE 40 MG TAB 1 po qd FUROSEMIDE 76207631717 Active Tu Landeros MD Active REQUIP 2 MG ORAL TABS 1 po qHS PRN Restless legs ROPINIROLE HCL 93533483730 Active Tu Landeros MD Active VENLAFAXINE HCL 37.5 MG TABS 1 po BID VENLAFAXINE HCL 03949563535 Active Tu Landeros MD Active GABAPENTIN 100 MG CAPS 1 po BID GABAPENTIN 15948254562 Active Tu Landeros MD Active REQUIP 2 MG TABS Take one tablet at bedtime prn ROPINIROLE HCL 07354436401 No Longer Active Tu Landeros MD Active VENTOLIN HFA 108 (90 BASE) MCG/ACT AERS 1-2 puffs every 4 hours if needed for cough/congestion ALBUTEROL SULFATE 19996601924 No Longer Active Ambika Aden APRN Active ZITHROMAX 250 MG TAB 2 po today, then 1 po q days 2-5 AZITHROMYCIN 03009205358 No Longer Active Miranda Suresh APRN Active FLONASE 50 MCG/ACT SUSP 1 spray each nostril twice daily until bottle empty FLUTICASONE PROPIONATE 93269467580 No Longer Active Tu Landeros MD Active COLACE 100 MG CAP 1 po BID PRN Constipation DOCUSATE SODIUM 14361653017 Active Tu Landeros MD Active TRUERESULT BLOOD GLUCOSE W/DEVICE KIT test blood sugar twice daily dx 250.00 BLOOD GLUCOSE MONITORING SUPPL 03467618132 No Longer Active Tu Landeros MD Active TRUEDRAW LANCING DEVICE MISC Test twice a day dx 250.0 LANCET DEVICES 91662489126 No Longer Active Tu Landeros MD Active PREDNISONE 20 MG TAB 2 tablets once daily for 2 days, then 1 tablet once daily for 2 days PREDNISONE 07212888593 No Longer Active Tu Landeros MD Active DICLOFENAC SODIUM 50 MG TBEC 1 tablet by mouth three times a day as needed DICLOFENAC SODIUM 24202288812 No Longer Active Fab Morales DO Active EMBRACE BLOOD GLUCOSE TEST STRP test blood sugar twice daily DX 250.0 2014 GLUCOSE BLOOD 62319174961 No Longer Active Tu Landeros MD Active TRUETEST TEST STRP test blood sugar three times daily dx: 250.00 GLUCOSE BLOOD 29924102783 No Longer Active Suzebianca VOGEL Active TRUERESULT BLOOD GLUCOSE W/DEVICE KIT use to test blood sugar tid dx: 250.00 BLOOD GLUCOSE MONITORING SUPPL 70663558819 No Longer Active Suze Corey VOGEL Active ALIGN 4 MG CAPS 1 tid PROBIOTIC PRODUCT 91010958077 No Longer Active Shaun Sy MD Active CIPRO 500 MG TABS 1 bid x 14 days start 09-28-13 CIPROFLOXACIN HCL 80314520760 No Longer Active Shaun Sy MD Active TRAMADOL HCL 50 MG TABS 1-2 tablets every 6 hours as needed for pain TRAMADOL HCL 63314725889 Active Lesli Kellogg APRN Active HYDROCODONE-ACETAMINOPHEN 5-325 MG TABS 1 tab by mouth every 6 hours as needed for pain HYDROCODONE-ACETAMINOPHEN 33852661371 No Longer Active Tu Landeros MD Active OMEPRAZOLE 20 MG CPDR 1 po q a.m. OMEPRAZOLE 55165690795 Active Lesli Fatumashahid PATEL Active GABAPENTIN 100 MG CAPS 1 po bid GABAPENTIN 44928200552 No Longer Active Tu Landeros MD Active B-12 100 MCG TABS Take one by mouth daily CYANOCOBALAMIN 63898332793 No Longer Active Tu Landeros MD Active BACTRIM DS 800-160 MG TABS 1 bid x 14 day start 09-28-13 SULFAMETHOXAZOLE-TRIMETHOPRIM 07003794964 No Longer Active Tu Landeros MD Active CARVEDILOL 12.5 MG TABS 1 po BID CARVEDILOL 26391659972 Active Tu Landeros MD Active TRILIPIX 135 MG CPDR 1 q hs CHOLINE FENOFIBRATE 58607182682 Active Tu Landeros MD Active FENOFIBRATE 145 MG TABS 1 po qd FENOFIBRATE 71705572219 No Longer Active JASPREET Perez Active OMEPRAZOLE 20 MG TBEC 1 PO 30 MIN BEFORE 1ST MEAL OMEPRAZOLE 70783804971 No Longer Active JASPREET Perez Active SIMVASTATIN 40 MG TABS Take one by mouth daily SIMVASTATIN 27352907350 No Longer Active JASPREET Perez Active VENLAFAXINE HCL 75 MG TABS 1 po BID VENLAFAXINE HCL 34043158722 No Longer Active JASPREET Perez Active CIPRO 500 MG TAB 1 tablet by mouth twice daily CIPROFLOXACIN HCL 59339600291 No Longer Active Tu Landeros MD Active VENLAFAXINE HCL 37.5 MG TABS 1 po BID VENLAFAXINE HCL 90488890202 No Longer Active Suze VOGEL Active LAMISIL 250 MG TAB 1 po qd TERBINAFINE HCL 71816192634 No Longer Active Tu Landeros MD Active LORTAB 5 5-500 MG TABS 1/2 to 1 tablet by mouth every 4 hours as needed for pain HYDROCODONE-ACETAMINOPHEN 28097596110 No Longer Active Tu Landeros MD Active HYDROCODONE-ACETAMINOPHEN 5-500 MG TABS take one po Q 4-6 hours prn HYDROCODONE-ACETAMINOPHEN 92902644635 No Longer Active Tu Landeros MD Active BACTRIM DS 800-160 MG TABS 1 po BID x 7 days SULFAMETHOXAZOLE-TRIMETHOPRIM 52396179817 No Longer Active Tu Landeros MD Active VENLAFAXINE HCL 75 MG TABS 1 po BID VENLAFAXINE HCL 54887599378 No Longer Active Elvira Cervantes MD PhD Active TRAMADOL HCL 50 MG TABS 1 tablets every 6 hours as needed for pain TRAMADOL HCL 58141016990 No Longer Active Tu Landeros MD Active ACCU-CHEK FASTCLIX LANCETS MISC Use to check bloodsugar three times daily as needed LANCETS 45660503554 No Longer Active Tu Landeros MD Active ACCU-CHEK KEYONA PLUS STRP Use for testing bloodsugars three times daily as needed GLUCOSE BLOOD 36566951633 No Longer Active Tu Landeros MD Active ACCU-CHEK KEYONA PLUS W/DEVICE KIT Use for testing bloodsugars three times daily as needed BLOOD GLUCOSE MONITORING SUPPL 51292042359 No Longer Active Tu Landeros MD Active SPIRONOLACTONE 25 MG TAB 0.5 tablet by mouth daily SPIRONOLACTONE 64027217186 No Longer Active Tu Landeros MD Active ALPRAZOLAM 0.5 MG TABS 1 tab every 6hrs as needed ALPRAZOLAM 94481325434 No Longer Active Tu Landeros MD Active AUGMENTIN 875-125 MG TAB 1 tab by mouth twice daily with food AMOXICILLIN-POT CLAVULANATE 19528441090 No Longer Active Tu Landeros MD Active PREDNISONE 20 MG TAB 2 tabs daily for 3 days, 1 tab daily for 3 days, 1/2 tab daily for 2 days PREDNISONE 61899354235 No Longer Active Tu Landeros MD Active XANAX 0.5 MG TABS 1 tablet every 6 hrs prn ALPRAZOLAM 34400784502 No Longer Active Tu Landeros MD Active PREDNISONE 20 MG TAB 2 tabs daily for 3 days, 1 tab daily for 3 days, 1/2 tab daily for 2 days PREDNISONE 87147748430 No Longer Active Tu Landeros MD Active TRIAMCINOLONE ACETONIDE 0.1 % OINT Apply to affected areas TID for up to 2 weeks TRIAMCINOLONE ACETONIDE 51444131977 No Longer Active uT Landeros MD Active LORTAB 5 5-500 MG TABS 1/2 to 1 tablet by mouth every 4 hours as needed for pain HYDROCODONE-ACETAMINOPHEN 05229074622 No Longer Active Tu Landeros MD Active MULTIVITAMINS TABS Take one by mouth daily MULTIPLE VITAMIN 26317762804 No Longer Active Tu Landeros MD Active MELATONIN 5 MG TABS Take one by mouth daily MELATONIN 48546983815 No Longer Active Tu Landeros MD Active SOMA 350 MG TAB 1 po q 6 hours prn spasm CARISOPRODOL 47592834293 No Longer Active Tu Landeros MD Active MECLIZINE HCL 25 MG CHEW TAB 1 four times a day as needed for dizziness 08/05 MECLIZINE HCL 71420077594 No Longer Active Fab Morales DO Active ANGEL BREEZE 2 TEST DISK test tid prn GLUCOSE BLOOD 33307453169 No Longer Active Negra Scott RN Active REGLAN 10 MG TAB 1 po TID PRN Nausea METOCLOPRAMIDE HCL 44913870560 No Longer Active Tu Landeros MD Active METFORMIN HCL 500 MG TABS 1 PO BID METFORMIN HCL 58937027430 No Longer Active uT Landeros MD Active AMBIEN 10 MG TAB 1 tab by mouth at bedtime as needed for sleep ZOLPIDEM TARTRATE 30521207779 No Longer Active Tu Landeros MD Active FLUOXETINE HCL 40 MG CAPS 1 po q day FLUOXETINE HCL 46118064774 No Longer Active Mayra Terry Active TRILIPIX 135 MG CPDR 1 po qd CHOLINE FENOFIBRATE 14804853166 No Longer Active Tu Landeros MD Active AMBIEN 10 MG TAB 1 tab by mouth at bedtime as needed for sleep AMBIEN 10 MG TAB 584169 ZOLPIDEM TARTRATE Inactive METFORMIN HCL 500 MG TABS 1 PO BID METFORMIN HCL 500 MG TABS 798412 METFORMIN HCL Inactive REGLAN 10 MG TAB 1 po TID PRN Nausea REGLAN 10 MG TAB 223041 METOCLOPRAMIDE HCL Inactive MECLIZINE HCL 25 MG CHEW TAB 1 four times a day as needed for dizziness 08/05 MECLIZINE HCL 25 MG CHEW TAB 569020 MECLIZINE HCL Inactive SOMA 350 MG TAB 1 po q 6 hours prn spasm SOMA 350 MG TAB 245813 CARISOPRODOL Inactive MELATONIN 5 MG TABS Take one by mouth daily MELATONIN 5 MG TABS 054275 MELATONIN Inactive MULTIVITAMINS TABS Take one by mouth daily MULTIVITAMINS TABS MULTIPLE VITAMIN Inactive LORTAB 5 5-500 MG TABS 1/2 to 1 tablet by mouth every 4 hours as needed for pain LORTAB 5 5-500 MG TABS HYDROCODONE- ACETAMINOPHEN Inactive XANAX 0.5 MG TABS 1 tablet every 6 hrs prn XANAX 0.5 MG TABS 087066 ALPRAZOLAM Inactive AUGMENTIN 875-125 MG TAB 1 tab by mouth twice daily with food AUGMENTIN 875-125 MG TAB 846935 AMOXICILLIN-POT CLAVULANATE Inactive ALPRAZOLAM 0.5 MG TABS 1 tab every 6hrs as needed ALPRAZOLAM 0.5 MG TABS 401220 ALPRAZOLAM Inactive SPIRONOLACTONE 25 MG TAB 0.5 tablet by mouth daily SPIRONOLACTONE 25 MG TAB 708070 SPIRONOLACTONE Inactive ACCU-CHEK KEYONA PLUS W/DEVICE KIT Use for testing bloodsugars three times daily as needed ACCU-CHEK KEYONA PLUS W/DEVICE KIT BLOOD GLUCOSE MONITORING SUPPL Inactive ACCU-CHEK KEYONA PLUS STRP Use for testing bloodsugars three times daily as needed ACCU-CHEK KEYONA PLUS STRP GLUCOSE BLOOD Inactive ACCU-CHEK FASTCLIX LANCETS MISC Use to check bloodsugar three times daily as needed ACCU-CHEK FASTCLIX LANCETS MISC 55587681476 LANCETS Inactive TRAMADOL HCL 50 MG TABS 1 tablets every 6 hours as needed for pain TRAMADOL HCL 50 MG TABS 211303 TRAMADOL HCL Inactive VENLAFAXINE HCL 75 MG TABS 1 po BID VENLAFAXINE HCL 75 MG TABS 084276 VENLAFAXINE HCL Inactive HYDROCODONE-ACETAMINOPHEN 5-500 MG TABS take one po Q 4-6 hours prn HYDROCODONE-ACETAMINOPHEN 5-500 MG TABS HYDROCODONE- ACETAMINOPHEN Inactive LORTAB 5 5-500 MG TABS 1/2 to 1 tablet by mouth every 4 hours as needed for pain LORTAB 5 5-500 MG TABS HYDROCODONE- ACETAMINOPHEN Inactive LAMISIL 250 MG TAB 1 po qd LAMISIL 250 MG TAB 863586 TERBINAFINE HCL Inactive VENLAFAXINE HCL 37.5 MG TABS 1 po BID VENLAFAXINE HCL 37.5 MG TABS 907067 VENLAFAXINE HCL Inactive CIPRO 500 MG TAB 1 tablet by mouth twice daily CIPRO 500 MG TAB 666927 CIPROFLOXACIN HCL Inactive VENLAFAXINE HCL 75 MG TABS 1 po BID VENLAFAXINE HCL 75 MG TABS 970862 VENLAFAXINE HCL Inactive SIMVASTATIN 40 MG TABS Take one by mouth daily SIMVASTATIN 40 MG TABS 309155 SIMVASTATIN Inactive OMEPRAZOLE 20 MG TBEC 1 PO 30 MIN BEFORE 1ST MEAL OMEPRAZOLE 20 MG TBEC 170842 OMEPRAZOLE Inactive FENOFIBRATE 145 MG TABS 1 po qd FENOFIBRATE 145 MG TABS 843296 FENOFIBRATE Inactive BACTRIM DS 800-160 MG TABS 1 bid x 14 day start 09-28-13 BACTRIM DS 800-160 MG TABS 568068 SULFAMETHOXAZOLE-TRIMETHOPRIM Inactive B-12 100 MCG TABS Take one by mouth daily B-12 100 MCG TABS CYANOCOBALAMIN Inactive GABAPENTIN 100 MG CAPS 1 po bid GABAPENTIN 100 MG CAPS 469433 GABAPENTIN Inactive HYDROCODONE-ACETAMINOPHEN 5-325 MG TABS 1 tab by mouth every 6 hours as needed for pain HYDROCODONE-ACETAMINOPHEN 5-325 MG TABS 998160 HYDROCODONE-ACETAMINOPHEN Inactive CIPRO 500 MG TABS 1 bid x 14 days start 09-28-13 CIPRO 500 MG TABS 777787 CIPROFLOXACIN HCL Inactive ALIGN 4 MG CAPS [...] [facility] 957440 DICLOFENAC SODIUM Inactive PREDNISONE 20 MG TAB 2 tablets once daily for 2 days, then 1 tablet once daily for 2 days PREDNISONE 20 MG TAB 949044 PREDNISONE Inactive TRUEDRAW LANCING DEVICE MISC Test twice a day dx 250.0 TRUEDRAW LANCING DEVICE MISC LANCET DEVICES Inactive TRUERESULT BLOOD GLUCOSE W/DEVICE KIT test blood sugar twice daily dx 250.00 TRUERESULT BLOOD GLUCOSE W/DEVICE KIT BLOOD GLUCOSE MONITORING SUPPL Inactive FLONASE 50 MCG/ACT SUSP 1 spray each nostril twice daily until bottle empty FLONASE 50 MCG/ACT SUSP 0240099 FLUTICASONE PROPIONATE Inactive VENTOLIN HFA 108 (90 BASE) MCG/ACT AERS 1-2 puffs every 4 hours if needed for cough/congestion VENTOLIN HFA 108 (90 BASE) MCG/ACT AERS ALBUTEROL SULFATE Inactive REQUIP 2 MG TABS Take one tablet at bedtime prn REQUIP 2 MG TABS 209845 ROPINIROLE HCL Inactive SUPER B COMPLEX/VITAMIN C TABS 1 qd SUPER B COMPLEX/ VITAMIN C TABS 95138317923 B COMPLEX-C Inactive TRUEDRAW LANCING DEVICE MISC test blood sugar twice daily dx: 250.00 TRUEDRAW LANCING DEVICE MISC LANCET DEVICES Inactive TRUETEST TEST INVITR STRP test blood sugar twice daily. DX 250.0 TRUETEST TEST INVITR STRP GLUCOSE BLOOD Inactive TRIAMCINOLONE ACETONIDE 0.1 % OINT Apply to affected areas TID for up to 2 weeks TRIAMCINOLONE ACETONIDE 0.1 % OINT 1025016 TRIAMCINOLONE ACETONIDE Inactive PREDNISONE 20 MG TAB 2 tabs daily for 3 days, 1 tab daily for 3 days, 1/2 tab daily for 2 days PREDNISONE 20 MG TAB 727699 PREDNISONE Inactive PREDNISONE 20 MG TAB 2 tabs daily for 3 days, 1 tab daily for 3 days, 1/2 tab daily for 2 days PREDNISONE 20 MG TAB 184517 PREDNISONE Inactive BACTRIM DS 800-160 MG TABS 1 po BID x 7 days BACTRIM DS 800-160 MG TABS 225275 SULFAMETHOXAZOLE-TRIMETHOPRIM Inactive ZITHROMAX 250 MG TAB 2 po today, then 1 po q days 2-5 ZITHROMAX 250 MG TAB 3020259 AZITHROMYCIN Inactive Advance Directives Directive Description Start Date DISCUSSED WITH PATIENT -- NO DECISION MADE Immunizations Vaccine Administration Date Value Standard Description Seasonal influenza vaccine, injectable, containing preservative, for > 3 years old (Afluria, FluLaval, Fluzone, Fluvirin, Fluarix, Agriflu(>=18 yo)) Fluzone (>3 yrs.) [AFB468] Influenza, seasonal, injectable influenza immunization (Flu Vax) has been administered 02/22/2012 influenza virus vaccine, unspecified formulation Seasonal influenza vaccine, injectable, containing preservative, for > 3 years old (Afluria, FluLaval, Fluzone, Fluvirin, Fluarix, Agriflu(>=18 yo)) Fluzone (>3 yrs.) [[id number]] Influenza, seasonal, injectable Vital Signs Date Name [...] Magnesium - Chemistry sodium, serum 143 mmol/L 667-291 5322/01/10 carbon dioxide, venous blood 28.0 mmol/L 21.0-32.0 potassium, serum 4.5 mmol/L 3.5-5.2 chloride, serum 104 mmol/L 98-107 blood glucose 158 mg/dL 65-110 urea nitrogen, blood 23 mg/dL 7-18 creatinine, serum 1.06 mg/dL 0.55-1.30 alanine aminotransferase (SGPT), serum 42 U/L 12-78 aspartate aminotransferase (SGOT), serum 32 U/L 15-37 calcium, serum 9.3 mg/dL 8.5-10.1 bilirubin, serum, total 0.20 mg/dL 0.00-1.00 cholesterol, serum 177 mg/dL 510-873 0021/01/10 triglyceride, serum, fasting 320 mg/dL 30-200 HDL cholesterol, serum 46 mg/dL 32-96 LDL cholesterol, serum 67 mg/dL 0-130 Lab Report: COMPREHENSIVE METABOLIC PANEL, LIPID PANEL, HEMOGLOBIN A1c - Chemistry cholesterol, serum 135 mg/dL 560-901 1364/05/17 HDL cholesterol, serum 41 mg/dL > OR=46 triglyceride, serum, fasting 206 mg/dL <150 LDL cholesterol, serum 53 MG/DL (CALC) mg/dL <130 cholesterol/HDL ratio, serum 3.3 (calc) < OR=5.0 Lab Report: HGBA1C - Chemistry hemoglobin A1C, blood, as % of total hemoglobin 7.4 % 4.3-6.0 sodium, serum 140 mmol/L 164-312 4073/09/07 potassium, serum 4.3 mmol/L 3.5-5.2 chloride, serum [...] <30 Encounters Code Encounter Date Provider Facility CPT-97517 Level 4 Est. Patient 09:08:17 CAR CLEANING SUPERVISOR Tu Landeros MD [facility] CPT-77296 Level 4 Est. Patient 14:40:19 CDT Tu Landeros MD [facility] CPT-63594 Level 4 Est. Patient 14:06:04 CAR CLEANING SUPERVISOR Tu Landeros MD [facility] CPT-08758 Level 3 Est. Patient 14:05:18 CAR CLEANING SUPERVISOR Tu Landeros MD [facility] CPT-62828 Level 3 Est. Patient 10:06:54 CAR CLEANING SUPERVISOR Miranda Suresh APRN [facility] CPT-41499 Level 4 Est. Patient 13:50:18 CAR CLEANING SUPERVISOR Tu Landeros MD [facility] CPT-78543 Level 3 Est. Patient 10:30:04 CDT Tu Landeros MD [facility] CPT-21347 Level 4 Est. Patient 11:03:38 CDT Tu Landeros MD [facility] CPT-76102 Level 3 Est. Patient 10:20:44 CDT Fab Morales DO [facility] CPT-16661 Level 4 Est. Patient 14:38:57 CDT Tu Landeros MD [facility] CPT-35997 Level 4 Est. Patient 14:27:39 CAR CLEANING SUPERVISOR Tu Landeros MD [facility] CPT-14102 Level 4 Est. Patient 09:45:25 CDT Tu Landeros MD [facility] CPT-68579 Level 4 Est. Patient 09:05:20 CAR CLEANING SUPERVISOR Tu Landeros MD [facility] CPT-58830 Level 4 Est. Patient 14:09:06 CDT Tu Landeros MD [facility] CPT-26182 Level 3 Est. Patient 13:36:54 CDT Tu Landeros MD [facility] CPT-57254 Level 3 Est. Patient 08:59:14 CDT Tu Landeros MD [facility] CPT-25710 Level 3 Est. Patient 13:48:35 CDT Fab Morales DO [facility] CPT-40366 Level 4 Est. Patient 10:05:48 CDT Tu Landeros MD [facility] CPT-05978 Level 3 Est. Patient 13:38:42 CDT Marek BANKS [facility] CPT-68319 Level 5 Est. Patient 08:08:39 CDT Jerrica FRANCIS [facility] CPT-88003 Level 4 Est. Patient 14:23:38 CDT Tu Landeros MD [facility] CPT-46062 Level 3 Est. Patient 11:44:04 CDT Tu Landeros MD [facility] CPT-04540 Level 3 Est. Patient 11:03:20 CAR CLEANING SUPERVISOR Tu Landeros MD [facility] CPT-57280 Level 3 Est. Patient 11:03:14 CAR CLEANING SUPERVISOR Tu Landeros MD [facility] CPT-47038 Level 3 Est. Patient 12:42:49 CDT Tu Landeros MD [facility] CPT-11850 Level 3 Est. Patient 11:52:06 CDT Tu Landeros MD [facility] CPT-74840 Level 3 Est. Patient 13:58:11 CDT Tu Landeros MD [facility] CPT-93401 Level 3 Est. Patient 17:50:07 CDT Fab Morales DO [facility] CPT-09696 Level 3 Est. Patient 12:06:29 CDT Elvira Cervantes MD PhD [facility] CPT-07661 Level 3 Est. Patient 15:50:32 CDT Tu Landeros MD [facility] CPT-57754 Level 4 Est. Patient 16:08:29 CDT Tu Landeros MD [facility] CPT-05418 Level 3 Est. Patient 16:04:19 CDT Tu Landeros MD [facility] CPT-41777 Level 3 Est. Patient 11:22:30 CAR CLEANING SUPERVISOR Tu Landeros MD [facility] CPT-95195 Level 4 Est. Patient 16:24:02 CAR CLEANING SUPERVISOR Tu Landeros MD [facility] CPT-17244 Level 3 Est. Patient 17:21:23 CAR CLEANING SUPERVISOR Tu Landeros MD [facility] Procedures Code Procedure Name Date Entry Date Standard Description CPT-72445 Venipuncture Draw Fee 13:15:35 CDT CPT-16896 Magnesium - LAB USE ONLY 11:14:20 CAR CLEANING SUPERVISOR CPT-41652 Lipid - LAB USE ONLY 11:14:20 CAR CLEANING SUPERVISOR CPT-55489 HGBA1C - LAB USE ONLY 11:14:20 CAR CLEANING SUPERVISOR CPT-45681 CMP - LAB USE ONLY 11:14:19 CAR CLEANING SUPERVISOR CPT-30569 CBC - LAB USE ONLY 11:14:19 CAR CLEANING SUPERVISOR CPT-56661 Venipuncture Draw Fee 11:14:18 CAR CLEANING SUPERVISOR CPT-72770 First Vx - Ix admin for Medicare patients 16:46:52 CDT CPT-21949 Fluzone Preservative Free Intramuscular Suspension 16:46 :51 CDT CPT-07328 CBC - LAB USE ONLY 17:14:46 CDT CPT-03896 HGBA1C - LAB USE ONLY 17:14:46 CDT CPT-51613 Venipuncture Draw Fee 17:14:46 CDT CPT-G0438 Initial Annual Wellness Exam 14:13:04 CDT CPT-40076 Breathing Tx 10:06:54 CAR CLEANING SUPERVISOR CPT-78927 Postop F/U Visit 10:02:45 CDT CPT-LR Lesion Removal 09:02:56 CDT CPT-JTINJ Asp/Joint Injection 15:51:27 CAR CLEANING SUPERVISOR CPT-OV Office Visit 15:52:02 CAR CLEANING SUPERVISOR CPT-OV Office Visit 15:45:11 CDT CPT-000 Give Zostavax 14:09:06 CDT CPT-13479 Administration single or combination vaccine inc oral 15 :19:04 CDT CPT-14622 Zoster Vaccine (Zostavax) 15:19:04 CDT CPT-06300 Administration single or combination vaccine inc oral 20 :51:03 CDT CPT-55905 Influenza split virus > age 3 20:51:03 CDT CPT-77727 No Charge Offi Visit 14:52:03 CDT CPT-OV Office Visit 14:57:43 CDT CPT-OV Office Visit 15:22:32 CDT CPT-94886 Administration single or combination vaccine inc oral 11 :33:15 CDT CPT-97762 Influenza split virus > age 3 11:33:15 CDT
--- OUTSIDE RECORDS SUMMARY | 2018-04-25 18:30 | XMS REPORT | Clinical Summary ---
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 Moderate or severe vision impairment, both eyes, [...] hours if needed for cough/congestion ALBUTEROL SULFATE 68365073801 No Longer Active Ambika Aden APRN Active ZITHROMAX 250 MG TAB 2 po today, then 1 po q days 2-5 AZITHROMYCIN 06486953119 No Longer Active Miranda Suresh APRN Active METFORMIN HCL 1000 MG TABS 1 tablet by mouth twice daily METFORMIN HCL 02364548487 Active Tu Landeros MD Active FLONASE 50 MCG/ACT SUSP 1 spray each nostril twice daily until bottle empty FLUTICASONE PROPIONATE 31316585636 No Longer Active Tu Landeros MD Active COLACE 100 MG CAP 1 po BID PRN Constipation DOCUSATE SODIUM 06957178261 Active Tu Landeros MD Active SIMVASTATIN 40 MG TABS 0.5 tab daily at bedtime SIMVASTATIN 55288090420 Active Tu Landeros MD Active TRUERESULT BLOOD GLUCOSE W/DEVICE KIT test blood sugar twice daily dx 250.00 BLOOD GLUCOSE MONITORING SUPPL 73048160378 No Longer Active Tu Landeros MD Active TRUEDRAW LANCING DEVICE MISC Test twice a day dx 250.0 LANCET DEVICES 53757710096 No Longer Active Tu Landeros MD Active PREDNISONE 20 MG TAB 2 tablets once daily for 2 days, then 1 tablet once daily for 2 days PREDNISONE 71003319378 No Longer Active Tu Landeros MD Active DICLOFENAC SODIUM 50 MG TBEC 1 tablet by mouth three times a day as needed DICLOFENAC SODIUM 18935413187 No Longer Active Fab Morales DO Active TRUEDRAW LANCING DEVICE MISC test blood sugar twice daily dx: 250.00 LANCET DEVICES 96774129788 Active Tu Landeros MD Active TRUETEST TEST INVITR STRP test blood sugar twice daily. DX 250.0 GLUCOSE BLOOD 56111309252 Active Tu Landeros MD Active EMBRACE BLOOD GLUCOSE TEST STRP test blood sugar twice daily DX 250.0 2014 GLUCOSE BLOOD 44816952981 No Longer Active Tu Landeros MD Active TRUETEST TEST STRP test blood sugar three times daily dx: 250.00 GLUCOSE BLOOD 33267353190 No Longer Active Suzebianca VOGEL Active TRUERESULT BLOOD GLUCOSE W/DEVICE KIT use to test blood sugar tid dx: 250.00 BLOOD GLUCOSE MONITORING SUPPL 66670785648 No Longer Active Suze Corey RMA Active ALIGN 4 MG CAPS 1 tid PROBIOTIC PRODUCT 11309643365 No Longer Active Shaun Sy MD Active CIPRO 500 MG TABS 1 bid x 14 days start 09-28-13 CIPROFLOXACIN HCL 91558982832 No Longer Active Shaun Sy MD Active TRAMADOL HCL 50 MG TABS 1-2 tablets every 6 hours as needed for pain TRAMADOL HCL 45810176611 Active Tu Landeros MD Active HYDROCODONE-ACETAMINOPHEN 5-325 MG TABS 1 tab by mouth every 6 hours as needed for pain HYDROCODONE-ACETAMINOPHEN 79362803704 No Longer Active Tu Landeros MD Active OMEPRAZOLE 20 MG CPDR 1 po q a.m. OMEPRAZOLE 85383894690 Active Tu Landeros MD Active GABAPENTIN 100 MG CAPS 1 po bid GABAPENTIN 43731754851 No Longer Active Tu Landeros MD Active B-12 100 MCG TABS Take one by mouth daily CYANOCOBALAMIN 73910380626 No Longer Active Tu Landeros MD Active GABAPENTIN 100 MG CAPS by mouth twice a day GABAPENTIN 85982857069 Active Tiffanie Doyle Active BACTRIM DS 800-160 MG TABS 1 bid x 14 day start 8-14 SULFAMETHOXAZOLE-TRIMETHOPRIM 36411058809 No Longer Active Tu Landeros MD Active CARVEDILOL 12.5 MG TABS 1 po BID CARVEDILOL 29535230955 Active Tu Landeros MD Active SUPER B COMPLEX/VITAMIN C TABS 1 qd B COMPLEX-C 33283636313 Active JASPREET Perez Active TRILIPIX 135 MG CPDR 1 q hs CHOLINE FENOFIBRATE 76580449810 Active Tu Landeros MD Active FENOFIBRATE 145 MG TABS 1 po qd FENOFIBRATE 54970861202 No Longer Active JASPREET Perez Active OMEPRAZOLE 20 MG TBEC 1 PO 30 MIN BEFORE 1ST MEAL OMEPRAZOLE 81549248293 No Longer Active JASPREET Perez Active SIMVASTATIN 40 MG TABS Take one by mouth daily SIMVASTATIN 99366162353 No Longer Active JASPREET Perez Active VENLAFAXINE HCL 37.5 MG TABS 1 bid VENLAFAXINE HCL 33810054491 Active uT Landeros MD Active VENLAFAXINE HCL 75 MG TABS 1 po BID VENLAFAXINE HCL 52956036854 No Longer Active JASPREET Perez Active CIPRO 500 MG TAB 1 tablet by mouth twice daily CIPROFLOXACIN HCL 15158943757 No Longer Active Tu Landeros MD Active VENLAFAXINE HCL 37.5 MG TABS 1 po BID VENLAFAXINE HCL 35859913736 No Longer Active Suze Corey RMA Active LAMISIL 250 MG TAB 1 po qd TERBINAFINE HCL 02855267789 No Longer Active Tu Landeros MD Active LORTAB 5 5-500 MG TABS 1/2 to 1 tablet by mouth every 4 hours as needed for pain HYDROCODONE-ACETAMINOPHEN 44911976115 No Longer Active Tu Landeros MD Active ENALAPRIL MALEATE 20 MG TABS 1.5 po qd ENALAPRIL MALEATE 35376464286 Active Tu Landeros MD Active HYDROCODONE-ACETAMINOPHEN 5-500 MG TABS take one po Q 4-6 hours prn HYDROCODONE-ACETAMINOPHEN 90253080051 No Longer Active Tu Landeros MD Active BACTRIM DS 800-160 MG TABS 1 po BID x 7 days SULFAMETHOXAZOLE-TRIMETHOPRIM 60149607131 No Longer Active Tu Landeros MD Active VENLAFAXINE HCL 75 MG TABS 1 po BID VENLAFAXINE HCL 35216289982 No Longer Active Elvira Cervantes MD PhD Active TRAMADOL HCL 50 MG TABS 1 tablets every 6 hours as needed for pain TRAMADOL HCL 35309513389 No Longer Active Tu Landeros MD Active ACCU-CHEK FASTCLIX LANCETS MISC Use to check bloodsugar three times daily as needed LANCETS 25728099051 No Longer Active Tu Landeros MD Active ACCU-CHEK KEYONA PLUS STRP Use for testing bloodsugars three times daily as needed GLUCOSE BLOOD 53987553928 No Longer Active Tu Landeros MD Active ACCU-CHEK KEYONA PLUS W/DEVICE KIT Use for testing bloodsugars three times daily as needed BLOOD GLUCOSE MONITORING SUPPL 37402293104 No Longer Active Tu Landeros MD Active SPIRONOLACTONE 25 MG TAB 0.5 tablet by mouth daily SPIRONOLACTONE 82906959830 No Longer Active Tu Landeros MD Active ALPRAZOLAM 0.5 MG TABS 1 tab every 6hrs as needed ALPRAZOLAM 64676349939 No Longer Active Tu Landeros MD Active AUGMENTIN 875-125 MG TAB 1 tab by mouth twice daily with food AMOXICILLIN-POT CLAVULANATE 21650713723 No Longer Active Tu Landeros MD Active PREDNISONE 20 MG TAB 2 tabs daily for 3 days, 1 tab daily for 3 days, 1/2 tab daily for 2 days PREDNISONE 57515387745 No Longer Active Tu Landeros MD Active XANAX 0.5 MG TABS 1 tablet every 6 hrs prn ALPRAZOLAM 06633516500 No Longer Active Tu Landeros MD Active PREDNISONE 20 MG TAB 2 tabs daily for 3 days, 1 tab daily for 3 days, 1/2 tab daily for 2 days PREDNISONE 52595556644 No Longer Active Tu Landeros MD Active TRIAMCINOLONE ACETONIDE 0.1 % OINT Apply to affected areas TID for up to 2 weeks TRIAMCINOLONE ACETONIDE 95135943570 No Longer Active Tu Landeros MD Active LORTAB 5 5-500 MG TABS 1/2 to 1 tablet by mouth every 4 hours as needed for pain HYDROCODONE-ACETAMINOPHEN 19477343954 No Longer Active Tu Landeros MD Active MULTIVITAMINS TABS Take one by mouth daily MULTIPLE VITAMIN 63288712019 No Longer Active Tu Landeros MD Active MELATONIN 5 MG TABS Take one by mouth daily MELATONIN 53723020406 No Longer Active Tu Landeros MD Active SOMA 350 MG TAB 1 po q 6 hours prn spasm CARISOPRODOL 97599167192 No Longer Active Tu Landeros MD Active MECLIZINE HCL 25 MG CHEW TAB 1 four times a day as needed for dizziness 08/05 MECLIZINE HCL 11994983583 No Longer Active Fab Morales DO Active ANGEL BREEZE 2 TEST DISK test tid prn GLUCOSE BLOOD 72817041380 No Longer Active Negra Scott RN Active REGLAN 10 MG TAB 1 po TID PRN Nausea METOCLOPRAMIDE HCL 74974399079 No Longer Active Tu Landeros MD Active METFORMIN HCL 500 MG TABS 1 PO BID METFORMIN HCL 61978257244 No Longer Active Tu Landeros MD Active AMBIEN 10 MG TAB 1 tab by mouth at bedtime as needed for sleep ZOLPIDEM TARTRATE 89307095368 No Longer Active Tu Landeros MD Active FLUOXETINE HCL 40 MG CAPS 1 po q day FLUOXETINE HCL 14222915335 No Longer Active Mayra Terry Active FISH OIL 1000 MG CAPS Take one by mouth daily OMEGA-3 FATTY ACIDS 17187099762 Active Tu Landeros MD Active GLUCOSAMINE 500 MG TABS Take 2 tab po qd GLUCOSAMINE 58165604111 Active Tu Landeros MD Active TRILIPIX 135 MG CPDR 1 po qd CHOLINE FENOFIBRATE 85231339864 No Longer Active Tu Landeros MD Active ASPIRIN 81 MG CHEW TAB 1 tablet by mouth daily ASPIRIN 27026757961 Active Tu Landeros MD Active FUROSEMIDE 40 MG TAB 1 tablet by mouth daily FUROSEMIDE 61942387295 Active Tu Landeros MD Active REQUIP 2 MG TABS Take one tablet at bedtime prn ROPINIROLE HCL 25465909643 Active Tu Landeros MD Active KLOR-CON 10 10 MEQ CR-TABS TAKE 2 TABS DAILY POTASSIUM CHLORIDE 34288341834 Active Tu Landeros MD Active AMBIEN 10 MG TAB 1 tab by mouth at bedtime as needed for sleep AMBIEN 10 MG TAB 799646 ZOLPIDEM TARTRATE Inactive METFORMIN HCL 500 MG TABS 1 PO BID METFORMIN HCL 500 MG TABS 932979 METFORMIN HCL Inactive REGLAN 10 MG TAB 1 po TID PRN Nausea REGLAN 10 MG TAB 287653 METOCLOPRAMIDE HCL Inactive MECLIZINE HCL 25 MG CHEW TAB 1 four times a day as needed for dizziness 08/05 MECLIZINE HCL 25 MG CHEW TAB 776575 MECLIZINE HCL Inactive SOMA 350 MG TAB 1 po q 6 hours prn spasm SOMA 350 MG TAB 978078 CARISOPRODOL Inactive MELATONIN 5 MG TABS Take one by mouth daily MELATONIN 5 MG TABS 580298 MELATONIN Inactive MULTIVITAMINS TABS Take one by mouth daily MULTIVITAMINS TABS MULTIPLE VITAMIN Inactive LORTAB 5 5-500 MG TABS 1/2 to 1 tablet by mouth every 4 hours as needed for pain LORTAB 5 5-500 MG TABS HYDROCODONE- ACETAMINOPHEN Inactive XANAX 0.5 MG TABS 1 tablet every 6 hrs prn XANAX 0.5 MG TABS 136949 ALPRAZOLAM Inactive AUGMENTIN 875-125 MG TAB 1 tab by mouth twice daily with food AUGMENTIN 875-125 MG TAB 415625 AMOXICILLIN-POT CLAVULANATE Inactive ALPRAZOLAM 0.5 MG TABS 1 tab every 6hrs as needed ALPRAZOLAM 0.5 MG TABS 474988 ALPRAZOLAM Inactive SPIRONOLACTONE 25 MG TAB 0.5 tablet by mouth daily SPIRONOLACTONE 25 MG TAB 137157 SPIRONOLACTONE Inactive ACCU-CHEK KEYONA PLUS W/DEVICE KIT Use for testing bloodsugars three times daily as needed ACCU-CHEK KEYONA PLUS W/DEVICE KIT BLOOD GLUCOSE MONITORING SUPPL Inactive ACCU-CHEK KEYONA PLUS STRP Use for testing bloodsugars three times daily as needed ACCU-CHEK KEYONA PLUS STRP GLUCOSE BLOOD Inactive ACCU-CHEK FASTCLIX LANCETS MISC Use to check bloodsugar three times daily as needed ACCU-CHEK FASTCLIX LANCETS MISC 93831024529 LANCETS Inactive TRAMADOL HCL 50 MG TABS 1 tablets every 6 hours as needed for pain TRAMADOL HCL 50 MG TABS 788427 TRAMADOL HCL Inactive VENLAFAXINE HCL 75 MG TABS 1 po BID VENLAFAXINE HCL 75 MG TABS 849664 VENLAFAXINE HCL Inactive HYDROCODONE-ACETAMINOPHEN 5-500 MG TABS take one po Q 4-6 hours prn HYDROCODONE-ACETAMINOPHEN 5-500 MG TABS HYDROCODONE- ACETAMINOPHEN Inactive LORTAB 5 5-500 MG TABS 1/2 to 1 tablet by mouth every 4 hours as needed for pain LORTAB 5 5-500 MG TABS HYDROCODONE- ACETAMINOPHEN Inactive LAMISIL 250 MG TAB 1 po qd LAMISIL 250 MG TAB 564387 TERBINAFINE HCL Inactive VENLAFAXINE HCL 37.5 MG TABS 1 po BID VENLAFAXINE HCL 37.5 MG TABS 131339 VENLAFAXINE HCL Inactive CIPRO 500 MG TAB 1 tablet by mouth twice daily CIPRO 500 MG TAB 802571 CIPROFLOXACIN HCL Inactive VENLAFAXINE HCL 75 MG TABS 1 po BID VENLAFAXINE HCL 75 MG TABS 829905 VENLAFAXINE HCL Inactive SIMVASTATIN 40 MG TABS Take one by mouth daily SIMVASTATIN 40 MG TABS 208681 SIMVASTATIN Inactive OMEPRAZOLE 20 MG TBEC 1 PO 30 MIN BEFORE 1ST MEAL OMEPRAZOLE 20 MG TBEC 410587 OMEPRAZOLE Inactive FENOFIBRATE 145 MG TABS 1 po qd FENOFIBRATE 145 MG TABS 961658 FENOFIBRATE Inactive BACTRIM DS 800-160 MG TABS 1 bid x 14 day start 09-28-13 BACTRIM DS 800-160 MG TABS 628344 SULFAMETHOXAZOLE-TRIMETHOPRIM Inactive B-12 100 MCG TABS Take one by mouth daily B-12 100 MCG TABS CYANOCOBALAMIN Inactive GABAPENTIN 100 MG CAPS 1 po bid GABAPENTIN 100 MG CAPS 743678 GABAPENTIN Inactive HYDROCODONE-ACETAMINOPHEN 5-325 MG TABS 1 tab by mouth every 6 hours as needed for pain HYDROCODONE-ACETAMINOPHEN 5-325 MG TABS 438529 HYDROCODONE-ACETAMINOPHEN Inactive CIPRO 500 MG TABS 1 bid x 14 days start 09-28-13 CIPRO 500 MG TABS 237710 CIPROFLOXACIN HCL Inactive ALIGN 4 MG CAPS [...] as needed DICLOFENAC SODIUM 50 MG TBEC 102615 DICLOFENAC SODIUM Inactive PREDNISONE 20 MG TAB 2 tablets once daily for 2 days, then 1 tablet once daily for 2 days PREDNISONE 20 MG TAB 483744 PREDNISONE Inactive TRUEDRAW LANCING DEVICE MISC Test [...] 2 weeks TRIAMCINOLONE ACETONIDE 0.1 % OINT 9400424 TRIAMCINOLONE ACETONIDE Inactive PREDNISONE 20 MG TAB 2 tabs daily for 3 days, 1 tab daily for 3 days, 1/2 tab daily for 2 days PREDNISONE 20 MG TAB 434416 PREDNISONE Inactive PREDNISONE 20 MG TAB 2 tabs daily for 3 days, 1 tab daily for 3 days, 1/2 tab daily for 2 days PREDNISONE 20 MG TAB 053299 PREDNISONE Inactive BACTRIM DS 800-160 MG TABS 1 po BID x 7 days BACTRIM DS 800-160 MG TABS 067359 SULFAMETHOXAZOLE-TRIMETHOPRIM Inactive ZITHROMAX 250 MG TAB 2 po today, then 1 po q days 2-5 ZITHROMAX 250 MG TAB 4337432 AZITHROMYCIN Inactive Advance Directives Directive Description Start Date DISCUSSED WITH PATIENT -- NO DECISION MADE Immunizations Vaccine Administration Date Value Standard Description Seasonal influenza vaccine, injectable, containing preservative, for > 3 years old (Afluria, FluLaval, Fluzone, Fluvirin, Fluarix, Agriflu(>=18 yo)) Fluzone (>3 yrs.) [[id number]] Influenza, seasonal, injectable influenza immunization (Flu Vax) has been administered 02/22/2012 influenza virus vaccine, unspecified formulation Seasonal influenza vaccine, injectable, containing preservative, for > 3 years old (Afluria, FluLaval, Fluzone, Fluvirin, Fluarix, Agriflu(>=18 yo)) Fluzone (>3 yrs.) [[id number]] Influenza, seasonal, injectable Vital Signs Date Name [...] mg/g mg/g{creat} 0-29 sodium, serum 142 mmol/L 877-926 9461/10/08 potassium, serum 4.5 mmol/L 3.5-5.2 chloride, serum [...] 7.4 % 4.3-6.0 sodium, serum 140 mmol/L 579-589 9630/09/07 potassium, serum 4.3 mmol/L 3.5-5.2 chloride, serum 104 mmol/L 98-107 carbon dioxide, venous blood 27.7 mmol/L 21.0-32.0 blood glucose 156 mg/dL 65-110 calcium, serum 9.3 mg/dL 8.5-10.1 urea nitrogen, blood 23 mg/dL - creatinine, serum 1.21 mg/dL 0.55-1.30 hemoglobin A1C, blood, as % of total hemoglobin 7.7 % 4.3-6.0 Lab Report: Lipid Panel, Comp. Metabolic Panel - Chemistry cholesterol, serum 124 mg/dL 912-583 9501/01/12 triglyceride, serum, fasting 135 mg/dL 30-200 HDL cholesterol, serum 41 mg/dL 32-96 LDL cholesterol, serum 56 mg/dL 0-130 sodium, serum 140 mmol/L 277-725 4131/01/12 carbon dioxide, venous blood 27.7 mmol/L 21.0-32.0 potassium, serum 4.5 mmol/L 3.5-5.2 chloride, serum 104 mmol/L 98-107 blood glucose 139 mg/dL 65-110 urea nitrogen, blood 16 mg/dL 7-18 alanine aminotransferase (SGPT), serum 32 U/L 12-78 aspartate aminotransferase (SGOT), serum 25 U/L 15-37 calcium, serum 9.1 mg/dL 8.5-10.1 bilirubin, serum, total 0.50 mg/dL 0.00-1.00 Encounters Code Encounter Date Provider Facility CPT-66892 Level 4 Est. Patient 14:06:04 SENIOR CIVIL ENGINEER Tu Landeros MD [facility] CPT-61559 Level 3 Est. Patient 14:05:18 SENIOR CIVIL ENGINEER Tu Landeros MD [facility] CPT-47349 Level 3 Est. Patient 10:06:54 SENIOR CIVIL ENGINEER Miranda Suresh APRN [facility] CPT-76925 Level 4 Est. Patient 13:50:18 SENIOR CIVIL ENGINEER Tu Landeros MD [facility] CPT-99576 Level 3 Est. Patient 10:30:04 CDT Tu Landeros MD [facility] CPT-49462 Level 4 Est. Patient 11:03:38 CDT Tu Landeros MD [facility] CPT-36897 Level 3 Est. Patient 10:20:44 CDT aFb Morales DO [facility] CPT-65950 Level 4 Est. Patient 14:38:57 CDT Tu Landeros MD [facility] CPT-76511 Level 4 Est. Patient 14:27:39 SENIOR CIVIL ENGINEER Tu Landeros MD [facility] CPT-96371 Level 4 Est. Patient 09:45:25 CDT Tu Landeros MD [facility] CPT-78555 Level 4 Est. Patient 09:05:20 SENIOR CIVIL ENGINEER uT Landeros MD [facility] CPT-18308 Level 4 Est. Patient 14:09:06 CDT Tu Landeros MD [facility] CPT-56216 Level 3 Est. Patient 13:36:54 CDT Tu Landeros MD [facility] CPT-00767 Level 3 Est. Patient 08:59:14 CDT Tu Landeros MD [facility] CPT-85772 Level 3 Est. Patient 13:48:35 CDT Fab Morales DO [facility] CPT-86663 Level 4 Est. Patient 10:05:48 CDT Tu Landeros MD [facility] CPT-01278 Level 3 Est. Patient 13:38:42 CDT Marek BANKS [facility] CPT-38984 Level 5 Est. Patient 08:08:39 CDT Jerrica Dawsontay FRANCIS [facility] CPT-35243 Level 4 Est. Patient 14:23:38 CDT Tu Landeros MD [facility] CPT-88381 Level 3 Est. Patient 11:44:04 CDT Tu Landeros MD [facility] CPT-05372 Level 3 Est. Patient 11:03:20 SENIOR CIVIL ENGINEER Tu Landeros MD [facility] CPT-71677 Level 3 Est. Patient 11:03:14 SENIOR CIVIL ENGINEER Tu Landeros MD [facility] CPT-13354 Level 3 Est. Patient 12:42:49 CDT Tu Landeros MD [facility] CPT-96145 Level 3 Est. Patient 11:52:06 CDT Tu Landeros MD [facility] CPT-69845 Level 3 Est. Patient 13:58:11 CDT Tu Landeros MD [facility] CPT-29715 Level 3 Est. Patient 17:50:07 CDT Fab Morales DO [facility] CPT-49887 Level 3 Est. Patient 12:06:29 CDT Elvira Cervantes MD PhD [facility] CPT-81482 Level 3 Est. Patient 15:50:32 CDT Tu Landeros MD [facility] CPT-54968 Level 4 Est. Patient 16:08:29 CDT Tu Landeros MD [facility] CPT-90864 Level 3 Est. Patient 16:04:19 CDT Tu Landeros MD [facility] CPT-13520 Level 3 Est. Patient 11:22:30 SENIOR CIVIL ENGINEER Tu Landeros MD [facility] CPT-75575 Level 4 Est. Patient 16:24:02 SENIOR CIVIL ENGINEER Tu Landeros MD [facility] CPT-19196 Level 3 Est. Patient 17:21:23 SENIOR CIVIL ENGINEER Tu Landeros MD [facility] Procedures Code Procedure Name Date Entry Date Standard Description CPT-G0438 Initial Annual Wellness Exam 14:13:04 CDT CPT-16923 Breathing Tx 10:06:54 SENIOR CIVIL ENGINEER CPT-69904 Postop F/U Visit 10:02:45 CDT CPT-LR Lesion Removal 09:02:56 CDT CPT-JTINJ Asp/Joint Injection 15:51:27 SENIOR CIVIL ENGINEER CPT-OV Office Visit 15:52:02 SENIOR CIVIL ENGINEER CPT-OV Office Visit 15:45:11 CDT CPT-000 Give Zostavax 14:09:06 CDT CPT-47459 Administration single or combination vaccine inc oral 15 :19:04 CDT CPT-49685 Zoster Vaccine (Zostavax) 15:19:04 CDT CPT-72902 Administration single or combination vaccine inc oral 20 :51:03 CDT CPT-54223 Influenza split virus > age 3 20:51:03 CDT CPT-82437 No Charge Offi Visit 14:52:03 CDT CPT-OV Office Visit 14:57:43 CDT CPT-OV Office Visit 15:22:32 CDT CPT-96228 Administration single or combination vaccine inc oral 11 :33:15 CDT CPT-82489 Influenza split virus > age 3 11:33:15 CDT
--- OUTSIDE RECORDS SUMMARY | 2018-04-25 18:31 | XMS REPORT | Clinical Summary ---
Author Author Admin, SACHI Organization [employer] Address Unknown Phone Unavailable Allergies, Adverse Reactions, [...] stated as uncontrolled HEALTH SCREENING V70.0 Inactive Elivra Cervantes MD PhD Routine general medical examination [...] blood sugar BID Dx: E11.9 GLUCOSE BLOOD 71832598605 Active Tu Landeros MD Active TRUE METRIX AIR GLUCOSE METER W/DEVICE KIT Test blood glucose BID Dx: E11.9 BLOOD GLUCOSE MONITORING SUPPL 60515122763 Active Tu Landeros MD Active TRUETEST TEST INVITR STRP test blood sugar twice daily. DX 250.0 GLUCOSE BLOOD 68385509293 No Longer Active Mirna Stanley LPN Active TRUEDRAW LANCING DEVICE MISC test blood sugar twice daily dx: 250.00 LANCET DEVICES 53337155575 No Longer Active Mirna Stanley LPN Active ENALAPRIL MALEATE 20 MG TABS 2 po qd ENALAPRIL MALEATE 98173921951 Active Tu Landeros MD Active SUPER B COMPLEX/VITAMIN C TABS 1 qd B COMPLEX-C 81736657205 No Longer Active Tu Landeros MD Active ASPIRIN EC 81 MG ORAL TBEC 1 po qd ASPIRIN 16311629463 Active Tu Landeros MD Active GLUCOSAMINE 500 MG TABS 2 po qd GLUCOSAMINE Active Tu Landeros MD Active SIMVASTATIN 40 MG TABS 0.5 po qHS SIMVASTATIN 46510629178 Active Tu Landeros MD Active FISH OIL 1000 MG CAPS 1 po qd OMEGA-3 FATTY ACIDS 44210159485 Active Tu Landeros MD Active METFORMIN HCL 1000 MG TABS 1 po BID METFORMIN HCL 55844205461 Active Tu Landeros MD Active KLOR-CON 10 10 MEQ CR-TABS 2 po qd POTASSIUM CHLORIDE 83493392146 Active Tu Landeros MD Active FUROSEMIDE 40 MG TAB 1 po qd FUROSEMIDE 78507188844 Active Tu Landeros MD Active REQUIP 2 MG ORAL TABS 1 po qHS PRN Restless legs ROPINIROLE HCL 98803083723 Active Tu Landeros MD Active VENLAFAXINE HCL 37.5 MG TABS 1 po BID VENLAFAXINE HCL 79573428118 Active Tu Landeros MD Active GABAPENTIN 100 MG CAPS 1 po BID GABAPENTIN 56883863946 Active José Luis Becerra MD Active REQUIP 2 MG TABS Take one tablet at bedtime prn ROPINIROLE HCL 97165229436 No Longer Active Tu Landeros MD Active VENTOLIN HFA 108 (90 BASE) MCG/ACT AERS 1-2 puffs every 4 hours if needed for cough/congestion ALBUTEROL SULFATE 16186222818 No Longer Active Ambika Aden APRN Active ZITHROMAX 250 MG TAB 2 po today, then 1 po q days 2-5 AZITHROMYCIN 46998569194 No Longer Active Miranda Suresh APRN Active FLONASE 50 MCG/ACT SUSP 1 spray each nostril twice daily until bottle empty FLUTICASONE PROPIONATE 62403562329 No Longer Active Tu Landeros MD Active COLACE 100 MG CAP 1 po BID PRN Constipation DOCUSATE SODIUM 44988513034 Active Tu Landeros MD Active TRUERESULT BLOOD GLUCOSE W/DEVICE KIT test blood sugar twice daily dx 250.00 BLOOD GLUCOSE MONITORING SUPPL 65221393905 No Longer Active Tu Landeros MD Active TRUEDRAW LANCING DEVICE MISC Test twice a day dx 250.0 LANCET DEVICES 51715548491 No Longer Active Tu Landeros MD Active PREDNISONE 20 MG TAB 2 tablets once daily for 2 days, then 1 tablet once daily for 2 days PREDNISONE 58542232087 No Longer Active Tu Landeros MD Active DICLOFENAC SODIUM 50 MG TBEC 1 tablet by mouth three times a day as needed DICLOFENAC SODIUM 28419324408 No Longer Active Fab Morales DO Active EMBRACE BLOOD GLUCOSE TEST STRP test blood sugar twice daily DX 250.0 2014 GLUCOSE BLOOD 59625689000 No Longer Active Tu Landeros MD Active TRUETEST TEST STRP test blood sugar three times daily dx: 250.00 GLUCOSE BLOOD 34695514889 No Longer Active Suzebianca VOGEL Active TRUERESULT BLOOD GLUCOSE W/DEVICE KIT use to test blood sugar tid dx: 250.00 BLOOD GLUCOSE MONITORING SUPPL 11388911934 No Longer Active Suze VOGEL Active ALIGN 4 MG CAPS 1 tid PROBIOTIC PRODUCT 23400507041 No Longer Active Shaun Sy MD Active CIPRO 500 MG TABS 1 bid x 14 days start 09-28-13 CIPROFLOXACIN HCL 09941282611 No Longer Active Shaun Sy MD Active TRAMADOL HCL 50 MG TABS 1-2 tablets every 6 hours as needed for pain TRAMADOL HCL 58823742015 Active Tu Landeros MD Active HYDROCODONE-ACETAMINOPHEN 5-325 MG TABS 1 tab by mouth every 6 hours as needed for pain HYDROCODONE-ACETAMINOPHEN 43929147945 No Longer Active Tu Landeros MD Active OMEPRAZOLE 20 MG CPDR 1 po q a.m. OMEPRAZOLE 34128568841 Active Tu Landeros MD Active GABAPENTIN 100 MG CAPS 1 po bid GABAPENTIN 82662074617 No Longer Active Tu Landeros MD Active B-12 100 MCG TABS Take one by mouth daily CYANOCOBALAMIN 94473387173 No Longer Active Tu Landeros MD Active BACTRIM DS 800-160 MG TABS 1 bid x 14 day start 09-28-13 SULFAMETHOXAZOLE-TRIMETHOPRIM 47997740019 No Longer Active Tu Landeros MD Active CARVEDILOL 12.5 MG TABS 1 po BID CARVEDILOL 75298561065 Active Tu Landeros MD Active TRILIPIX 135 MG CPDR 1 q hs CHOLINE FENOFIBRATE 12563394427 Active Tu Landeros MD Active FENOFIBRATE 145 MG TABS 1 po qd FENOFIBRATE 26580327183 No Longer Active JASPREET Perez Active OMEPRAZOLE 20 MG TBEC 1 PO 30 MIN BEFORE 1ST MEAL OMEPRAZOLE 69146044938 No Longer Active JASPREET Perez Active SIMVASTATIN 40 MG TABS Take one by mouth daily SIMVASTATIN 34519163485 No Longer Active JASPREET Perez Active VENLAFAXINE HCL 75 MG TABS 1 po BID VENLAFAXINE HCL 76347931036 No Longer Active JASPREET Perez Active CIPRO 500 MG TAB 1 tablet by mouth twice daily CIPROFLOXACIN HCL 42661163768 No Longer Active Tu Landeros MD Active VENLAFAXINE HCL 37.5 MG TABS 1 po BID VENLAFAXINE HCL 30722484622 No Longer Active Suzebianca NUNOA Active LAMISIL 250 MG TAB 1 po qd TERBINAFINE HCL 80473544883 No Longer Active Tu Landeros MD Active LORTAB 5 5-500 MG TABS 1/2 to 1 tablet by mouth every 4 hours as needed for pain HYDROCODONE-ACETAMINOPHEN 58665830254 No Longer Active Tu Landeros MD Active HYDROCODONE-ACETAMINOPHEN 5-500 MG TABS take one po Q 4-6 hours prn HYDROCODONE-ACETAMINOPHEN 85032022820 No Longer Active Tu Landeros MD Active BACTRIM DS 800-160 MG TABS 1 po BID x 7 days SULFAMETHOXAZOLE-TRIMETHOPRIM 74994436749 No Longer Active Tu Landeros MD Active VENLAFAXINE HCL 75 MG TABS 1 po BID VENLAFAXINE HCL 06033623762 No Longer Active Elvira Cervantes MD PhD Active TRAMADOL HCL 50 MG TABS 1 tablets every 6 hours as needed for pain TRAMADOL HCL 17186545799 No Longer Active Tu Landeros MD Active ACCU-CHEK FASTCLIX LANCETS MISC Use to check bloodsugar three times daily as needed LANCETS 11901630093 No Longer Active Tu Landeros MD Active ACCU-CHEK KEYONA PLUS STRP Use for testing bloodsugars three times daily as needed GLUCOSE BLOOD 09887001850 No Longer Active Tu Landeros MD Active ACCU-CHEK KEYONA PLUS W/DEVICE KIT Use for testing bloodsugars three times daily as needed BLOOD GLUCOSE MONITORING SUPPL 57704561642 No Longer Active Tu Landeros MD Active SPIRONOLACTONE 25 MG TAB 0.5 tablet by mouth daily SPIRONOLACTONE 36198628471 No Longer Active Tu Landeros MD Active ALPRAZOLAM 0.5 MG TABS 1 tab every 6hrs as needed ALPRAZOLAM 83016980872 No Longer Active Tu Landeros MD Active AUGMENTIN 875-125 MG TAB 1 tab by mouth twice daily with food AMOXICILLIN-POT CLAVULANATE 77162576736 No Longer Active Tu Landeros MD Active PREDNISONE 20 MG TAB 2 tabs daily for 3 days, 1 tab daily for 3 days, 1/2 tab daily for 2 days PREDNISONE 94490301819 No Longer Active Tu Landeros MD Active XANAX 0.5 MG TABS 1 tablet every 6 hrs prn ALPRAZOLAM 45349023783 No Longer Active Tu Landeros MD Active PREDNISONE 20 MG TAB 2 tabs daily for 3 days, 1 tab daily for 3 days, 1/2 tab daily for 2 days PREDNISONE 67654569387 No Longer Active Tu Landeros MD Active TRIAMCINOLONE ACETONIDE 0.1 % OINT Apply to affected areas TID for up to 2 weeks TRIAMCINOLONE ACETONIDE 54857602716 No Longer Active Tu Landeros MD Active LORTAB 5 5-500 MG TABS 1/2 to 1 tablet by mouth every 4 hours as needed for pain HYDROCODONE-ACETAMINOPHEN 98537847488 No Longer Active Tu Landeros MD Active MULTIVITAMINS TABS Take one by mouth daily MULTIPLE VITAMIN 35495788300 No Longer Active Tu Landeros MD Active MELATONIN 5 MG TABS Take one by mouth daily MELATONIN 26647408061 No Longer Active Tu Landeros MD Active SOMA 350 MG TAB 1 po q 6 hours prn spasm CARISOPRODOL 99139181335 No Longer Active Tu Landeros MD Active MECLIZINE HCL 25 MG CHEW TAB 1 four times a day as needed for dizziness 08/05 MECLIZINE HCL 06702120358 No Longer Active Fab Morales DO Active ANGEL BREEZE 2 TEST DISK test tid prn GLUCOSE BLOOD 86633825332 No Longer Active Negra Scott RN Active REGLAN 10 MG TAB 1 po TID PRN Nausea METOCLOPRAMIDE HCL 95329415923 No Longer Active Tu Landeros MD Active METFORMIN HCL 500 MG TABS 1 PO BID METFORMIN HCL 88828747596 No Longer Active Tu Landeros MD Active AMBIEN 10 MG TAB 1 tab by mouth at bedtime as needed for sleep ZOLPIDEM TARTRATE 15739553430 No Longer Active Tu Landeros MD Active FLUOXETINE HCL 40 MG CAPS 1 po q day FLUOXETINE HCL 41431842818 No Longer Active Mayra Terry Active TRILIPIX 135 MG CPDR 1 po qd CHOLINE FENOFIBRATE 55895284134 No Longer Active Tu Landeros MD Active AMBIEN 10 MG TAB 1 tab by mouth at bedtime as needed for sleep AMBIEN 10 MG TAB 889529 ZOLPIDEM TARTRATE Inactive METFORMIN HCL 500 MG TABS 1 PO BID METFORMIN HCL 500 MG TABS 679507 METFORMIN HCL Inactive REGLAN 10 MG TAB 1 po TID PRN Nausea REGLAN 10 MG TAB 922237 METOCLOPRAMIDE HCL Inactive MECLIZINE HCL 25 MG CHEW TAB 1 four times a day as needed for dizziness 08/05 MECLIZINE HCL 25 MG CHEW TAB 081034 MECLIZINE HCL Inactive SOMA 350 MG TAB 1 po q 6 hours prn spasm SOMA 350 MG TAB 824733 CARISOPRODOL Inactive MELATONIN 5 MG TABS Take one by mouth daily MELATONIN 5 MG TABS 156636 MELATONIN Inactive MULTIVITAMINS TABS Take one by mouth daily MULTIVITAMINS TABS MULTIPLE VITAMIN Inactive LORTAB 5 5-500 MG TABS 1/2 to 1 tablet by mouth every 4 hours as needed for pain LORTAB 5 5-500 MG TABS HYDROCODONE- ACETAMINOPHEN Inactive XANAX 0.5 MG TABS 1 tablet every 6 hrs prn XANAX 0.5 MG TABS 564568 ALPRAZOLAM Inactive AUGMENTIN 875-125 MG TAB 1 tab by mouth twice daily with food AUGMENTIN 875-125 MG TAB 977606 AMOXICILLIN-POT CLAVULANATE Inactive ALPRAZOLAM 0.5 MG TABS 1 tab every 6hrs as needed ALPRAZOLAM 0.5 MG TABS 226577 ALPRAZOLAM Inactive SPIRONOLACTONE 25 MG TAB 0.5 tablet by mouth daily SPIRONOLACTONE 25 MG TAB 892178 SPIRONOLACTONE Inactive ACCU-CHEK KEYONA PLUS W/DEVICE KIT Use for testing bloodsugars three times daily as needed ACCU-CHEK KEYONA PLUS W/DEVICE KIT BLOOD GLUCOSE MONITORING SUPPL Inactive ACCU-CHEK KEYOAN PLUS STRP Use for testing bloodsugars three times daily as needed ACCU-CHEK KEYNOA PLUS STRP GLUCOSE BLOOD Inactive ACCU-CHEK FASTCLIX LANCETS MISC Use to check bloodsugar three times daily as needed ACCU-CHEK FASTCLIX LANCETS MISC 38864034792 LANCETS Inactive TRAMADOL HCL 50 MG TABS 1 tablets every 6 hours as needed for pain TRAMADOL HCL 50 MG TABS 580866 TRAMADOL HCL Inactive VENLAFAXINE HCL 75 MG TABS 1 po BID VENLAFAXINE HCL 75 MG TABS 106394 VENLAFAXINE HCL Inactive HYDROCODONE-ACETAMINOPHEN 5-500 MG TABS take one po Q 4-6 hours prn HYDROCODONE-ACETAMINOPHEN 5-500 MG TABS HYDROCODONE- ACETAMINOPHEN Inactive LORTAB 5 5-500 MG TABS 1/2 to 1 tablet by mouth every 4 hours as needed for pain LORTAB 5 5-500 MG TABS HYDROCODONE- ACETAMINOPHEN Inactive LAMISIL 250 MG TAB 1 po qd LAMISIL 250 MG TAB 530682 TERBINAFINE HCL Inactive VENLAFAXINE HCL 37.5 MG TABS 1 po BID VENLAFAXINE HCL 37.5 MG TABS 370377 VENLAFAXINE HCL Inactive CIPRO 500 MG TAB 1 tablet by mouth twice daily CIPRO 500 MG TAB 989418 CIPROFLOXACIN HCL Inactive VENLAFAXINE HCL 75 MG TABS 1 po BID VENLAFAXINE HCL 75 MG TABS 377428 VENLAFAXINE HCL Inactive SIMVASTATIN 40 MG TABS Take one by mouth daily SIMVASTATIN 40 MG TABS 553339 SIMVASTATIN Inactive OMEPRAZOLE 20 MG TBEC 1 PO 30 MIN BEFORE 1ST MEAL OMEPRAZOLE 20 MG TBEC 966180 OMEPRAZOLE Inactive FENOFIBRATE 145 MG TABS 1 po qd FENOFIBRATE 145 MG TABS 225411 FENOFIBRATE Inactive BACTRIM DS 800-160 MG TABS 1 bid x 14 day start 09-28-13 BACTRIM DS 800-160 MG TABS 530979 SULFAMETHOXAZOLE-TRIMETHOPRIM Inactive B-12 100 MCG TABS Take one by mouth daily B-12 100 MCG TABS CYANOCOBALAMIN Inactive GABAPENTIN 100 MG CAPS 1 po bid GABAPENTIN 100 MG CAPS 101488 GABAPENTIN Inactive HYDROCODONE-ACETAMINOPHEN 5-325 MG TABS 1 tab by mouth every 6 hours as needed for pain HYDROCODONE-ACETAMINOPHEN 5-325 MG TABS 571855 HYDROCODONE-ACETAMINOPHEN Inactive CIPRO 500 MG TABS 1 bid x 14 days start 09-28-13 CIPRO 500 MG TABS 709316 CIPROFLOXACIN HCL Inactive ALIGN 4 MG CAPS [...] day as needed DICLOFENAC SODIUM 50 MG [facility] 232780 DICLOFENAC SODIUM Inactive PREDNISONE 20 MG TAB 2 tablets once daily for 2 days, then 1 tablet once daily for 2 days PREDNISONE 20 MG TAB 452228 PREDNISONE Inactive TRUEDRAW LANCING DEVICE MISC Test [...] at bedtime prn REQUIP 2 MG TABS 166490 ROPINIROLE HCL Inactive SUPER B COMPLEX/VITAMIN C TABS 1 qd SUPER B COMPLEX/ VITAMIN C TABS 78960614832 B COMPLEX-C Inactive TRUEDRAW LANCING DEVICE MISC test blood sugar twice daily dx: 250.00 TRUEDRAW LANCING DEVICE MISC LANCET DEVICES Inactive TRUETEST TEST INVITR STRP test blood sugar twice daily. DX 250.0 TRUETEST TEST INVITR STRP GLUCOSE BLOOD Inactive TRIAMCINOLONE ACETONIDE 0.1 % OINT Apply to affected areas TID for up to 2 weeks TRIAMCINOLONE ACETONIDE 0.1 % OINT 0749233 TRIAMCINOLONE ACETONIDE Inactive PREDNISONE 20 MG TAB 2 tabs daily for 3 days, 1 tab daily for 3 days, 1/2 tab daily for 2 days PREDNISONE 20 MG TAB 824685 PREDNISONE Inactive PREDNISONE 20 MG TAB 2 tabs daily for 3 days, 1 tab daily for 3 days, 1/2 tab daily for 2 days PREDNISONE 20 MG TAB 003785 PREDNISONE Inactive BACTRIM DS 800-160 MG TABS 1 po BID x 7 days BACTRIM DS 800-160 MG TABS 940121 SULFAMETHOXAZOLE-TRIMETHOPRIM Inactive ZITHROMAX 250 MG TAB 2 po today, then 1 po q days 2-5 ZITHROMAX 250 MG TAB 9558118 AZITHROMYCIN Inactive Advance Directives Directive Description Start Date DISCUSSED WITH PATIENT -- NO DECISION MADE Immunizations Vaccine Administration Date Value Standard Description Seasonal influenza vaccine, injectable, containing preservative, for > 3 years old (Afluria, FluLaval, Fluzone, Fluvirin, Fluarix, Agriflu(>=18 yo)) Fluzone (>3 yrs.) [[id number]] Influenza, seasonal, injectable influenza immunization (Flu Vax) has been administered 02/22/2012 influenza virus vaccine, unspecified formulation Seasonal influenza vaccine, injectable, containing preservative, for > 3 years old (Afluria, FluLaval, Fluzone, Fluvirin, Fluarix, Agriflu(>=18 yo)) Fluzone (>3 yrs.) [VZF103] Influenza, seasonal, injectable Vital Signs Date Name [...] Magnesium - Chemistry sodium, serum 143 mmol/L 567-771 4722/01/10 carbon dioxide, venous blood 28.0 mmol/L 21.0-32.0 potassium, serum 4.5 mmol/L 3.5-5.2 chloride, serum 104 mmol/L 98-107 blood glucose 158 mg/dL 65-110 urea nitrogen, blood 23 mg/dL 7-18 creatinine, serum 1.06 mg/dL 0.55-1.30 alanine aminotransferase (SGPT), serum 42 U/L 12-78 aspartate aminotransferase (SGOT), serum 32 U/L 15-37 calcium, serum 9.3 mg/dL 8.5-10.1 bilirubin, serum, total 0.20 mg/dL 0.00-1.00 cholesterol, serum 177 mg/dL 869-904 9391/01/10 triglyceride, serum, fasting 320 mg/dL 30-200 HDL cholesterol, serum 46 mg/dL 32-96 LDL cholesterol, serum 67 mg/dL 0-130 Lab Report: HGBA1C - Chemistry hemoglobin A1C, blood, as % of total hemoglobin 7.1 % 4.3-6.0 hemoglobin A1C, blood, as % of total hemoglobin 7.4 % 4.3-6.0 sodium, serum 140 mmol/L 570-277 3790/09/07 potassium, serum 4.3 mmol/L 3.5-5.2 chloride, serum [...] <30 Encounters Code Encounter Date Provider Facility CPT-74131 Level 4 Est. Patient 09:08:17 FINANCIAL PLANNING CONSULTANT Tu Landeros MD [facility] CPT-14111 Level 4 Est. Patient 14:40:19 CDT Tu Landeros MD [facility] CPT-75100 Level 4 Est. Patient 14:06:04 FINANCIAL PLANNING CONSULTANT Tu Landeros MD [facility] CPT-74426 Level 3 Est. Patient 14:05:18 FINANCIAL PLANNING CONSULTANT Tu Landeros MD [facility] CPT-75417 Level 3 Est. Patient 10:06:54 FINANCIAL PLANNING CONSULTANT Miranda Suresh APRN [facility] CPT-98546 Level 4 Est. Patient 13:50:18 FINANCIAL PLANNING CONSULTANT Tu Landeros MD [facility] CPT-48317 Level 3 Est. Patient 10:30:04 CDT Tu Landeros MD [facility] CPT-85133 Level 4 Est. Patient 11:03:38 CDT Tu Landeros MD [facility] CPT-27170 Level 3 Est. Patient 10:20:44 CDT Fab Morales DO [facility] CPT-05477 Level 4 Est. Patient 14:38:57 CDT Tu Landeros MD [facility] CPT-09693 Level 4 Est. Patient 14:27:39 FINANCIAL PLANNING CONSULTANT Tu Landeros MD [facility] CPT-47659 Level 4 Est. Patient 09:45:25 CDT Tu Landeros MD [facility] CPT-66630 Level 4 Est. Patient 09:05:20 FINANCIAL PLANNING CONSULTANT Tu Landeros MD [facility] CPT-09953 Level 4 Est. Patient 14:09:06 CDT Tu Landeros MD [facility] CPT-95770 Level 3 Est. Patient 13:36:54 CDT Tu Landeros MD [facility] CPT-05127 Level 3 Est. Patient 08:59:14 CDT Tu Landeros MD [facility] CPT-77538 Level 3 Est. Patient 13:48:35 CDT Fab Morales DO [facility] CPT-66798 Level 4 Est. Patient 10:05:48 CDT Tu Landeros MD [facility] CPT-02418 Level 3 Est. Patient 13:38:42 CDT Marek BANKS [facility] CPT-89977 Level 5 Est. Patient 08:08:39 CDT Jerrica FRANCIS [facility] CPT-31308 Level 4 Est. Patient 14:23:38 CDT Tu Landeros MD [facility] CPT-82079 Level 3 Est. Patient 11:44:04 CDT Tu Landeros MD [facility] CPT-37275 Level 3 Est. Patient 11:03:20 FINANCIAL PLANNING CONSULTANT Tu Landeros MD [facility] CPT-83705 Level 3 Est. Patient 11:03:14 FINANCIAL PLANNING CONSULTANT Tu Landeros MD [facility] CPT-07959 Level 3 Est. Patient 12:42:49 CDT Tu Landeros MD [facility] CPT-46624 Level 3 Est. Patient 11:52:06 CDT Tu Landeros MD [facility] CPT-75299 Level 3 Est. Patient 13:58:11 CDT Tu Landeros MD [facility] CPT-62215 Level 3 Est. Patient 17:50:07 CDT Fab Morales DO [facility] CPT-94442 Level 3 Est. Patient 12:06:29 CDT Elvira Cervantes MD PhD [facility] CPT-83027 Level 3 Est. Patient 15:50:32 CDT Tu Landeros MD [facility] CPT-91401 Level 4 Est. Patient 16:08:29 CDT Tu aLnderos MD [facility] CPT-88999 Level 3 Est. Patient 16:04:19 CDT Tu Landeros MD [facility] CPT-18864 Level 3 Est. Patient 11:22:30 FINANCIAL PLANNING CONSULTANT Tu Landeros MD [facility] CPT-64732 Level 4 Est. Patient 16:24:02 FINANCIAL PLANNING CONSULTANT Tu Landeros MD [facility] CPT-10265 Level 3 Est. Patient 17:21:23 FINANCIAL PLANNING CONSULTANT Tu Landeros MD [facility] Procedures Code Procedure Name Date Entry Date Standard Description CPT-23048 Magnesium - LAB USE ONLY 11:14:20 FINANCIAL PLANNING CONSULTANT CPT-47343 Lipid - LAB USE ONLY 11:14:20 FINANCIAL PLANNING CONSULTANT CPT-08106 HGBA1C - LAB USE ONLY 11:14:20 FINANCIAL PLANNING CONSULTANT CPT-61674 CMP - LAB USE ONLY 11:14:19 FINANCIAL PLANNING CONSULTANT CPT-34820 CBC - LAB USE ONLY 11:14:19 FINANCIAL PLANNING CONSULTANT CPT-99791 Venipuncture Draw Fee 11:14:18 FINANCIAL PLANNING CONSULTANT CPT-28879 First Vx - Ix admin for Medicare patients 16:46:52 CDT CPT-55161 Fluzone Preservative Free Intramuscular Suspension 16:46 :51 CDT CPT-12250 CBC - LAB USE ONLY 17:14:46 CDT CPT-21382 HGBA1C - LAB USE ONLY 17:14:46 CDT CPT-28043 Venipuncture Draw Fee 17:14:46 CDT CPT-G0438 Initial Annual Wellness Exam 14:13:04 CDT CPT-12150 Breathing Tx 10:06:54 FINANCIAL PLANNING CONSULTANT CPT-13469 Postop F/U Visit 10:02:45 CDT CPT-LR Lesion Removal 09:02:56 CDT CPT-JTINJ Asp/Joint Injection 15:51:27 FINANCIAL PLANNING CONSULTANT CPT-OV Office Visit 15:52:02 FINANCIAL PLANNING CONSULTANT CPT-OV Office Visit 15:45:11 CDT CPT-000 Give Zostavax 14:09:06 CDT CPT-82147 Administration single or combination vaccine inc oral 15 :19:04 CDT CPT-55111 Zoster Vaccine (Zostavax) 15:19:04 CDT CPT-70201 Administration single or combination vaccine inc oral 20 :51:03 CDT CPT-93232 Influenza split virus > age 3 20:51:03 CDT CPT-00155 No Charge Offi Visit 14:52:03 CDT CPT-OV Office Visit 14:57:43 CDT CPT-OV Office Visit 15:22:32 CDT CPT-28459 Administration single or combination vaccine inc oral 11 :33:15 CDT CPT-96121 Influenza split virus > age 3 11:33:15 CDT
--- OUTSIDE RECORDS SUMMARY | 2018-04-25 18:33 | XMS REPORT | Clinical Summary ---
Author Author Admin, SACHI Clemons [facility] Address Unknown Phone Unavailable Allergies, Adverse [...] twice daily until bottle empty FLUTICASONE PROPIONATE [id number] Active Fab Morales DO Active PREDNISONE 20 MG TAB 2 tablets once daily for 2 days, then 1 tablet once daily for 2 days PREDNISONE 98473893062 Active Fab Morales DO Active DICLOFENAC SODIUM 50 MG TBEC 1 tablet by mouth three times a day as needed DICLOFENAC SODIUM 84907930585 No Longer Active Fab Morales DO Active METFORMIN HCL 850 MG TABS 1 tablet by mouth twice daily METFORMIN HCL 94138311869 Active Tu Landeros MD Active TRUEDRAW LANCING DEVICE MISC test blood sugar twice daily dx: 250.00 LANCET DEVICES 35263883877 Active Tu Landeros MD Active TRUEDRAW LANCING DEVICE MISC Test twice a day dx 250.0 LANCET DEVICES 10300365327 Active Tu Landeros MD Active TRUERESULT BLOOD GLUCOSE W/DEVICE KIT test blood sugar twice daily dx 250.00 BLOOD GLUCOSE MONITORING SUPPL 80310574534 Active Tu Landeros MD Active TRUETEST TEST INVITR STRP test blood sugar twice daily. DX 250.0 GLUCOSE BLOOD 32679376059 Active Tu Landeros MD Active EMBRACE BLOOD GLUCOSE TEST STRP test blood sugar twice daily DX 250.0 2014 GLUCOSE BLOOD 56963467500 No Longer Active Tu Landeros MD Active TRUETEST TEST STRP test blood sugar three times daily dx: 250.00 GLUCOSE BLOOD 52012522758 No Longer Active Suze Hardenehpia VOGEL Active TRUERESULT BLOOD GLUCOSE W/DEVICE KIT use to test blood sugar tid dx: 250.00 BLOOD GLUCOSE MONITORING SUPPL 69379002575 No Longer Active Suze Hardenosbaldo VOGEL Active ALIGN 4 MG CAPS 1 tid PROBIOTIC PRODUCT 32232643907 No Longer Active Shaun Sy MD Active CIPRO 500 MG TABS 1 bid x 14 days start 09-28-13 CIPROFLOXACIN HCL 83429036315 No Longer Active Shaun Sy MD Active TRAMADOL HCL 50 MG TABS 1-2 tablets every 6 hours as needed for pain TRAMADOL HCL 71223890177 Active Tu Landeros MD Active HYDROCODONE-ACETAMINOPHEN 5-325 MG TABS 1 tab by mouth every 6 hours as needed for pain HYDROCODONE-ACETAMINOPHEN 07131573675 No Longer Active Tu Landeros MD Active OMEPRAZOLE 20 MG CPDR 1 po q a.m. OMEPRAZOLE 94579543921 Active Elvira Cervantes MD PhD Active GABAPENTIN 100 MG CAPS 1 po bid GABAPENTIN 00581669251 No Longer Active Tu Landeros MD Active B-12 100 MCG TABS Take one by mouth daily CYANOCOBALAMIN 60721841311 No Longer Active Tu Landeros MD Active GABAPENTIN 100 MG CAPS by mouth twice a day GABAPENTIN 70686686984 Active Tu Landeros MD Active BACTRIM DS 800-160 MG TABS 1 bid x 14 day start 09-28-13 SULFAMETHOXAZOLE-TRIMETHOPRIM 20176037704 No Longer Active Tu Landeros MD Active SIMVASTATIN 40 MG TABS 1 tab daily at bedtime SIMVASTATIN 41543621896 Active Tu Landeros MD Active CARVEDILOL 12.5 MG TABS 1 po BID CARVEDILOL 73663710894 Active Tu Landeros MD Active SUPER B COMPLEX/VITAMIN C TABS 1 qd B COMPLEX-C 84550412565 Active JASPREET Perez Active TRILIPIX 135 MG CPDR 1 q hs CHOLINE FENOFIBRATE 38628563665 Active Tu Landeros MD Active FENOFIBRATE 145 MG TABS 1 po qd FENOFIBRATE 29170065366 No Longer Active JASPREET Perez Active OMEPRAZOLE 20 MG TBEC 1 PO 30 MIN BEFORE 1ST MEAL OMEPRAZOLE 29911543346 No Longer Active JASPREET Perez Active SIMVASTATIN 40 MG TABS Take one by mouth daily SIMVASTATIN 30723761165 No Longer Active JASPREET Perez Active VENLAFAXINE HCL 37.5 MG TABS 1 bid VENLAFAXINE HCL 95373134588 Active Tu Landeros MD Active VENLAFAXINE HCL 75 MG TABS 1 po BID VENLAFAXINE HCL 19860109058 No Longer Active JASPREET Perez Active CIPRO 500 MG TAB 1 tablet by mouth twice daily CIPROFLOXACIN HCL 58955896703 No Longer Active Tu Landeros MD Active VENLAFAXINE HCL 37.5 MG TABS 1 po BID VENLAFAXINE HCL 72503512975 No Longer Active Suzebianca VOGEL Active [employer] STOOL SOFTENER 100 MG CAPS 1 tab daily DOCUSATE SODIUM 63570954609 Active Tu Landeros MD Active LAMISIL 250 MG TAB 1 po qd TERBINAFINE HCL 01530925832 No Longer Active Tu Landeros MD Active LORTAB 5 5-500 MG TABS 1/2 to 1 tablet by mouth every 4 hours as needed for pain HYDROCODONE-ACETAMINOPHEN 61661544200 No Longer Active Tu Landeros MD Active ENALAPRIL MALEATE 20 MG TABS 1.5 po qd ENALAPRIL MALEATE 51025187156 Active Tu Landeros MD Active HYDROCODONE-ACETAMINOPHEN 5-500 MG TABS take one po Q 4-6 hours prn HYDROCODONE-ACETAMINOPHEN 99888314026 No Longer Active Tu Landeros MD Active BACTRIM DS 800-160 MG TABS 1 po BID x 7 days SULFAMETHOXAZOLE-TRIMETHOPRIM 61721479894 No Longer Active Tu Landeros MD Active VENLAFAXINE HCL 75 MG TABS 1 po BID VENLAFAXINE HCL 09272064819 No Longer Active Elvira Cervantes MD PhD Active TRAMADOL HCL 50 MG TABS 1 tablets every 6 hours as needed for pain TRAMADOL HCL 76439406570 No Longer Active Tu Landeros MD Active ACCU-CHEK FASTCLIX LANCETS MISC Use to check bloodsugar three times daily as needed LANCETS 23350964351 No Longer Active Tu Landeros MD Active ACCU-CHEK KEYONA PLUS STRP Use for testing bloodsugars three times daily as needed GLUCOSE BLOOD 04876831036 No Longer Active Tu Landeros MD Active ACCU-CHEK KEYONA PLUS W/DEVICE KIT Use for testing bloodsugars three times daily as needed BLOOD GLUCOSE MONITORING SUPPL 81725614985 No Longer Active Tu Landeros MD Active SPIRONOLACTONE 25 MG TAB 0.5 tablet by mouth daily SPIRONOLACTONE 92963778337 No Longer Active Tu Landeros MD Active ALPRAZOLAM 0.5 MG TABS 1 tab every 6hrs as needed ALPRAZOLAM 34084580436 No Longer Active Tu Landeros MD Active AUGMENTIN 875-125 MG TAB 1 tab by mouth twice daily with food AMOXICILLIN-POT CLAVULANATE 91523870879 No Longer Active Tu Landeros MD Active PREDNISONE 20 MG TAB 2 tabs daily for 3 days, 1 tab daily for 3 days, 1/2 tab daily for 2 days PREDNISONE 34012384381 No Longer Active Tu Landeros MD Active XANAX 0.5 MG TABS 1 tablet every 6 hrs prn ALPRAZOLAM 26354679749 No Longer Active Tu Landeros MD Active PREDNISONE 20 MG TAB 2 tabs daily for 3 days, 1 tab daily for 3 days, 1/2 tab daily for 2 days PREDNISONE 61845783680 No Longer Active Tu Landeros MD Active TRIAMCINOLONE ACETONIDE 0.1 % OINT Apply to affected areas TID for up to 2 weeks TRIAMCINOLONE ACETONIDE 71754151790 No Longer Active Tu Landeros MD Active LORTAB 5 5-500 MG TABS 1/2 to 1 tablet by mouth every 4 hours as needed for pain HYDROCODONE-ACETAMINOPHEN 30340844843 No Longer Active Tu Landeros MD Active MULTIVITAMINS TABS Take one by mouth daily MULTIPLE VITAMIN 18964867500 No Longer Active Tu Landeros MD Active MELATONIN 5 MG TABS Take one by mouth daily MELATONIN 85612989282 No Longer Active Tu Landeros MD Active SOMA 350 MG TAB 1 po q 6 hours prn spasm CARISOPRODOL 59439723936 No Longer Active Tu Landeros MD Active MECLIZINE HCL 25 MG CHEW TAB 1 four times a day as needed for dizziness 08/05 MECLIZINE HCL 67181660605 No Longer Active Fab Morales DO Active ANGEL BREEZE 2 TEST DISK test tid prn GLUCOSE BLOOD 02780229280 No Longer Active Negra Scott RN Active REGLAN 10 MG TAB 1 po TID PRN [place] METOCLOPRAMIDE HCL 78512290021 No Longer Active Tu Landeros MD Active METFORMIN HCL 500 MG TABS 1 PO BID METFORMIN HCL 22657150478 No Longer Active Tu Landeros MD Active AMBIEN 10 MG TAB 1 tab by mouth at bedtime as needed for sleep ZOLPIDEM TARTRATE 81444049808 No Longer Active Tu Landeros MD Active FLUOXETINE HCL 40 MG CAPS 1 po q day FLUOXETINE HCL 45989752808 No Longer Active Mayra Terry Active FISH OIL 1000 MG CAPS Take one by mouth daily OMEGA-3 FATTY ACIDS 94131125431 Active Tu Landeros MD Active GLUCOSAMINE 500 MG TABS Take 2 tab po qd GLUCOSAMINE 70979036355 Active Tu Landeros MD Active TRILIPIX 135 MG CPDR 1 po qd CHOLINE FENOFIBRATE 50435285270 No Longer Active Tu Landeros MD Active ASPIRIN 81 MG CHEW TAB 1 tablet by mouth daily ASPIRIN 31487694833 Active Tu Landeros MD Active FUROSEMIDE 40 MG TAB 1 tablet by mouth daily FUROSEMIDE 64330397111 Active Tu Landeros MD Active REQUIP 2 MG TABS Take one tablet at bedtime prn ROPINIROLE HCL 59734350202 Active Tu Landeros MD Active KLOR-CON 10 10 MEQ CR-TABS TAKE 2 TABS DAILY POTASSIUM CHLORIDE 13236167095 Active Tu Landeros MD Active AMBIEN 10 MG TAB 1 tab by mouth at bedtime as needed for sleep AMBIEN 10 MG TAB 480951 ZOLPIDEM TARTRATE Inactive METFORMIN HCL 500 MG TABS 1 PO BID METFORMIN HCL 500 MG TABS 935843 METFORMIN HCL Inactive REGLAN 10 MG TAB 1 po TID PRN Nausea REGLAN 10 MG TAB 795691 METOCLOPRAMIDE HCL Inactive MECLIZINE HCL 25 MG CHEW TAB 1 four times a day as needed for dizziness 08/05 MECLIZINE HCL 25 MG CHEW TAB 336490 MECLIZINE HCL Inactive SOMA 350 MG TAB 1 po q 6 hours prn spasm SOMA 350 MG TAB 664296 CARISOPRODOL Inactive MELATONIN 5 MG TABS Take one by mouth daily MELATONIN 5 MG TABS 961075 MELATONIN Inactive MULTIVITAMINS TABS Take one by mouth daily MULTIVITAMINS TABS MULTIPLE VITAMIN Inactive LORTAB 5 5-500 MG TABS 1/2 to 1 tablet by mouth every 4 hours as needed for pain LORTAB 5 5-500 MG TABS HYDROCODONE- ACETAMINOPHEN Inactive XANAX 0.5 MG TABS 1 tablet every 6 hrs prn XANAX 0.5 MG TABS 795626 ALPRAZOLAM Inactive AUGMENTIN 875-125 MG TAB 1 tab by mouth twice daily with food AUGMENTIN 875-125 MG TAB 983693 AMOXICILLIN-POT CLAVULANATE Inactive ALPRAZOLAM 0.5 MG TABS 1 tab every 6hrs as needed ALPRAZOLAM 0.5 MG TABS 967102 ALPRAZOLAM Inactive SPIRONOLACTONE 25 MG TAB 0.5 tablet by mouth daily SPIRONOLACTONE 25 MG TAB 510317 SPIRONOLACTONE Inactive ACCU-CHEK KEYONA PLUS W/DEVICE KIT Use for testing bloodsugars three times daily as needed ACCU-CHEK KEYONA PLUS W/DEVICE KIT BLOOD GLUCOSE MONITORING SUPPL Inactive ACCU-CHEK KEYONA PLUS STRP Use for testing bloodsugars three times daily as needed ACCU-CHEK KEYONA PLUS STRP GLUCOSE BLOOD Inactive ACCU-CHEK FASTCLIX LANCETS MISC Use to check bloodsugar three times daily as needed ACCU-CHEK FASTCLIX LANCETS MISC 95280236128 LANCETS Inactive TRAMADOL HCL 50 MG TABS 1 tablets every 6 hours as needed for pain TRAMADOL HCL 50 MG TABS 558629 TRAMADOL HCL Inactive VENLAFAXINE HCL 75 MG TABS 1 po BID VENLAFAXINE HCL 75 MG TABS 081815 VENLAFAXINE HCL Inactive HYDROCODONE-ACETAMINOPHEN 5-500 MG TABS take one po Q 4-6 hours prn HYDROCODONE-ACETAMINOPHEN 5-500 MG TABS HYDROCODONE- ACETAMINOPHEN Inactive LORTAB 5 5-500 MG TABS 1/2 to 1 tablet by mouth every 4 hours as needed for pain LORTAB 5 5-500 MG TABS HYDROCODONE- ACETAMINOPHEN Inactive LAMISIL 250 MG TAB 1 po qd LAMISIL 250 MG TAB 796176 TERBINAFINE HCL Inactive VENLAFAXINE HCL 37.5 MG TABS 1 po BID VENLAFAXINE HCL 37.5 MG TABS 896902 VENLAFAXINE HCL Inactive CIPRO 500 MG TAB 1 tablet by mouth twice daily CIPRO 500 MG TAB 198519 CIPROFLOXACIN HCL Inactive VENLAFAXINE HCL 75 MG TABS 1 po BID VENLAFAXINE HCL 75 MG TABS 590492 VENLAFAXINE HCL Inactive SIMVASTATIN 40 MG TABS Take one by mouth daily SIMVASTATIN 40 MG TABS 198560 SIMVASTATIN Inactive OMEPRAZOLE 20 MG TBEC 1 PO 30 MIN BEFORE 1ST MEAL OMEPRAZOLE 20 MG TBEC 204836 OMEPRAZOLE Inactive FENOFIBRATE 145 MG TABS 1 po qd FENOFIBRATE 145 MG TABS 565216 FENOFIBRATE Inactive BACTRIM DS 800-160 MG TABS 1 bid x 14 day start 09-28-13 BACTRIM DS 800-160 MG TABS SULFAMETHOXAZOLE-TRIMETHOPRIM Inactive B-12 100 MCG TABS Take one by mouth daily B-12 100 MCG TABS CYANOCOBALAMIN Inactive GABAPENTIN 100 MG CAPS 1 po bid GABAPENTIN 100 MG CAPS 874590 GABAPENTIN Inactive HYDROCODONE-ACETAMINOPHEN 5-325 MG TABS 1 tab by mouth every 6 hours as needed for pain HYDROCODONE-ACETAMINOPHEN 5-325 MG TABS 859081 HYDROCODONE-ACETAMINOPHEN Inactive CIPRO 500 MG TABS 1 bid x 14 days start 09-28-13 CIPRO 500 MG TABS 169945 CIPROFLOXACIN HCL Inactive ALIGN 4 MG CAPS [...] as needed DICLOFENAC SODIUM 50 MG TBEC 372281 DICLOFENAC SODIUM Inactive TRIAMCINOLONE ACETONIDE 0.1 % OINT Apply to affected areas TID for up to 2 weeks TRIAMCINOLONE ACETONIDE 0.1 % OINT 0414681 TRIAMCINOLONE ACETONIDE Inactive PREDNISONE 20 MG TAB 2 tabs daily for 3 days, 1 tab daily for 3 days, 1/2 tab daily for 2 days PREDNISONE 20 MG TAB 066027 PREDNISONE Inactive PREDNISONE 20 MG TAB 2 tabs daily for 3 days, 1 tab daily for 3 days, 1/2 tab daily for 2 days PREDNISONE 20 MG TAB 106124 PREDNISONE Inactive BACTRIM DS 800-160 MG TABS 1 po BID x 7 days BACTRIM DS 800-160 MG TABS SULFAMETHOXAZOLE-TRIMETHOPRIM Inactive Immunizations Vaccine Administration Date Value Standard Description Seasonal influenza vaccine, injectable, containing preservative, for > 3 years old (Afluria, FluLaval, Fluzone, Fluvirin, Fluarix, Agriflu(>=18 yo)) Fluzone (>3 yrs.) [[id number]] Influenza, seasonal, injectable influenza immunization (Flu Vax) has been administered 02/22/2012 influenza virus vaccine, unspecified formulation Seasonal influenza vaccine, injectable, containing preservative, for > 3 years old (Afluria, FluLaval, Fluzone, Fluvirin, Fluarix, Agriflu(>=18 yo)) Fluzone (>3 yrs.) [[id number]] Influenza, seasonal, injectable Vital Signs Date Name [...] CBC - Chemistry sodium, serum 143 mmol/L 782-839 8945/03/10 potassium, serum 4.9 mmol/L 3.5-5.2 chloride, serum [...] 0.30 mg/dL 0.00-1.00 cholesterol, serum 111 mg/dL 703-007 3565/07/28 triglyceride, serum, fasting 177 mg/dL 30-200 HDL [...] mg/dL Encounters Code Encounter Date Provider Facility CPT-94677 Level 3 Est. Patient 10:20:44 CDT Fab Morales DO [facility] CPT-60535 Level 4 Est. Patient 14:38:57 CDT Tu Landeros MD [facility] CPT-08593 Level 4 Est. Patient 14:27:39 PARKING PATROLLER Tu Landeros MD [facility] CPT-48674 Level 4 Est. Patient 09:45:25 CDT Tu Landeros MD [facility] CPT-35604 Level 4 Est. Patient 09:05:20 PARKING PATROLLER Tu Landeros MD [facility] CPT-69846 Level 4 Est. Patient 14:09:06 CDT Tu Landeros MD [facility] CPT-56263 Level 3 Est. Patient 13:36:54 CDT Tu Landeros MD [facility] CPT-88756 Level 3 Est. Patient 08:59:14 CDT Tu Landeros MD [facility] CPT-28072 Level 3 Est. Patient 13:48:35 CDT Fab Morales DO [facility] CPT-77888 Level 4 Est. Patient 10:05:48 CDT Tu Landeros MD [facility] CPT-47375 Level 3 Est. Patient 13:38:42 CDT Marek BANKS [facility] CPT-06185 Level 5 Est. Patient 08:08:39 CDT Jerrica FRANCIS [facility] CPT-10946 Level 4 Est. Patient 14:23:38 CDT Tu Landeros MD [facility] CPT-84402 Level 3 Est. Patient 11:44:04 CDT Tu Landeros MD [facility] CPT-10313 Level 3 Est. Patient 11:03:20 PARKING PATROLLER Tu Landeros MD [facility] CPT-41183 Level 3 Est. Patient 11:03:14 PARKING PATROLLER Tu Landeros MD [facility] CPT-47934 Level 3 Est. Patient 12:42:49 CDT Tu Landeros MD [facility] CPT-81957 Level 3 Est. Patient 11:52:06 CDT Tu Landeros MD [facility] CPT-12110 Level 3 Est. Patient 13:58:11 CDT Tu Landeros MD [facility] CPT-68040 Level 3 Est. Patient 17:50:07 CDT Fab Morales DO [facility] CPT-50533 Level 3 Est. Patient 12:06:29 CDT Elvira Cervantes MD PhD [facility] CPT-70890 Level 3 Est. Patient 15:50:32 CDT Tu Landeros MD [facility] CPT-20724 Level 4 Est. Patient 16:08:29 CDT Tu Landeros MD [facility] CPT-42670 Level 3 Est. Patient 16:04:19 CDT Tu Landeros MD [facility] CPT-60834 Level 3 Est. Patient 11:22:30 PARKING PATROLLER Tu Landeros MD [facility] CPT-52625 Level 4 Est. Patient 16:24:02 PARKING PATROLLER Tu Landeros MD [facility] CPT-45874 Level 3 Est. Patient 17:21:23 PARKING PATROLLER Tu Landeros MD [facility] Procedures Code Procedure Name Date Entry Date Standard Description CPT-[id number] Asp/Joint Injection 15:51:27 PARKING PATROLLER CPT-OV Office Visit 15:52:02 PARKING PATROLLER CPT-OV Office Visit 15:45:11 CDT CPT-000 Give Zostavax 14:09:06 CDT CPT-38506 Administration single or combination vaccine inc oral 15 :19:04 CDT CPT-86856 Zoster Vaccine (Zostavax) 15:19:04 CDT CPT-53562 Administration single or combination vaccine inc oral 20 :51:03 CDT CPT-26268 Influenza split virus > age 3 20:51:03 CDT CPT-04389 No Charge Offi Visit 14:52:03 CDT CPT-OV Office Visit 14:57:43 CDT CPT-OV Office Visit 15:22:32 CDT CPT-01617 Administration single or combination vaccine inc oral 11 :33:15 CDT CPT-33307 Influenza split virus > age 3 11:33:15 CDT
--- OUTSIDE RECORDS SUMMARY | 2018-04-25 18:35 | XMS REPORT | Clinical Summary ---
Author Author Admin, SACHI Organization [employer] Address Unknown Phone Unavailable Allergies, Adverse [...] Landeros MD Leg pain, left ICD-729.5 Tessa Lnaderos MD Vision impairment, both eyes, impairment level not further specified ICD- 369.20 Tessa Landeros MD Medication List Medication Instructions Start Date Stop Date Generic Name NDC Status Provider Patient Instruction CYCLOBENZAPRINE HCL 10 MG ORAL TABS 1 po TID PRN Muscle Spasm CYCLOBENZAPRINE HCL 39240707308 Active Tu Landeros MD Active DICLOFENAC SODIUM 50 MG ORAL TBEC 1 po BID PRN Pain DICLOFENAC SODIUM 03527279297 Delores Landeros MD Active INVOKANA 100 MG ORAL TABS 1 po qd CANAGLIFLOZIN 11586358978 Active Tu Landeros MD Active GLIPIZIDE 5 MG ORAL TABS 1 po qd GLIPIZIDE 58198254609 No Longer Active Tu Landeros MD Active VENLAFAXINE HCL 75 MG ORAL TABS 1 po BID VENLAFAXINE HCL 24717142840 Active Tu Landeros MD Active GLIMEPIRIDE 1 MG ORAL TABS 1 po qd GLIMEPIRIDE 06374128108 No Longer Active Tu Landeros MD Active TRUE METRIX BLOOD GLUCOSE TEST INVITR STRP Test blood sugar BID Dx: E11.9 GLUCOSE BLOOD 02729125712 Active Tu Landeros MD Active TRUE METRIX AIR GLUCOSE METER W/DEVICE KIT Test blood glucose BID Dx: E11.9 BLOOD GLUCOSE MONITORING SUPPL 12442945852 Active Tu Landeros MD Active TRUETEST TEST INVITR STRP test blood sugar twice daily. DX 250.0 GLUCOSE BLOOD 23688849271 No Longer Active Mirna Stanley LPN Active TRUEDRAW LANCING DEVICE MISC test blood sugar twice daily dx: 250.00 LANCET DEVICES 50783472616 No Longer Active Mirna Stanley LPN Active ENALAPRIL MALEATE 20 MG TABS 2 po qd ENALAPRIL MALEATE 51786354689 Active Lesli Kellogg APRN Active SUPER B COMPLEX/VITAMIN C TABS 1 qd B COMPLEX-C 04889194752 No Longer Active uT Landeros MD Active ASPIRIN EC 81 MG ORAL TBEC 1 po qd ASPIRIN 26558736641 Active Tu Landeros MD Active GLUCOSAMINE 500 MG TABS 2 po qd GLUCOSAMINE Active Tu Landeros MD Active SIMVASTATIN 40 MG TABS 0.5 po qHS SIMVASTATIN 90257783009 Active uT Landeros MD Active FISH OIL 1000 MG CAPS 1 po qd OMEGA-3 FATTY ACIDS 74210372075 Active Tu Landeros MD Active METFORMIN HCL 1000 MG TABS 1 po BID METFORMIN HCL 37335151245 Active Tu Landeros MD Active KLOR-CON 10 10 MEQ CR-TABS 2 po qd POTASSIUM CHLORIDE 87709571300 Active Tu Landeros MD Active FUROSEMIDE 40 MG TAB 1 po qd FUROSEMIDE 08799170142 Active Tu Landeros MD Active REQUIP 2 MG ORAL TABS 1 po qHS PRN Restless legs ROPINIROLE HCL 83867594980 Active Tu Landeros MD Active GABAPENTIN 100 MG CAPS 1 po BID GABAPENTIN 43638679366 Active Tu Landeros MD Active REQUIP 2 MG TABS Take one tablet at bedtime prn ROPINIROLE HCL 78639557393 No Longer Active Tu Landeros MD Active VENTOLIN HFA 108 (90 BASE) MCG/ACT AERS 1-2 puffs every 4 hours if needed for cough/congestion ALBUTEROL SULFATE 32444557314 No Longer Active Ambika Aden APRN Active ZITHROMAX 250 MG TAB 2 po today, then 1 po q days 2-5 AZITHROMYCIN 42720845159 No Longer Active Miranda Suresh APRN Active FLONASE 50 MCG/ACT SUSP 1 spray each nostril twice daily until bottle empty FLUTICASONE PROPIONATE 69382013525 No Longer Active Tu Landeros MD Active COLACE 100 MG CAP 1 po BID PRN Constipation DOCUSATE SODIUM 52027612462 Active Tu Landeros MD Active TRUERESULT BLOOD GLUCOSE W/DEVICE KIT test blood sugar twice daily dx 250.00 BLOOD GLUCOSE MONITORING SUPPL 62614866248 No Longer Active Tu Landeros MD Active TRUEDRAW LANCING DEVICE MISC Test twice a day dx 250.0 LANCET DEVICES 93005555303 No Longer Active Tu Landeros MD Active PREDNISONE 20 MG TAB 2 tablets once daily for 2 days, then 1 tablet once daily for 2 days PREDNISONE 08685873503 No Longer Active Tu Landeros MD Active DICLOFENAC SODIUM 50 MG TBEC 1 tablet by mouth three times a day as needed DICLOFENAC SODIUM 50634761210 No Longer Active Fab Morales DO Active EMBRACE BLOOD GLUCOSE TEST STRP test blood sugar twice daily DX 250.0 2014 GLUCOSE BLOOD 67915939960 No Longer Active Tu Landeros MD Active TRUETEST TEST STRP test blood sugar three times daily dx: 250.00 GLUCOSE BLOOD 42170079908 No Longer Active Suze Nicole RMA Active TRUERESULT BLOOD GLUCOSE W/DEVICE KIT use to test blood sugar tid dx: 250.00 BLOOD GLUCOSE MONITORING SUPPL 43392758231 No Longer Active Suze Nicole RMA Active ALIGN 4 MG CAPS 1 tid PROBIOTIC PRODUCT 54331831952 No Longer Active Shaun Sy MD Active CIPRO 500 MG TABS 1 bid x 14 days start 09-28-13 CIPROFLOXACIN HCL 66158818731 No Longer Active Shaun Sy MD Active TRAMADOL HCL 50 MG TABS 1-2 tablets every 6 hours as needed for pain TRAMADOL HCL 05172098789 Active Kofillina Valdez PATEL Active HYDROCODONE-ACETAMINOPHEN 5-325 MG TABS 1 tab by mouth every 6 hours as needed for pain HYDROCODONE-ACETAMINOPHEN 31893141858 No Longer Active Tu Landeros MD Active OMEPRAZOLE 20 MG CPDR 1 po q a.m. OMEPRAZOLE 77504060418 Active Lesli Kellogg APRN Active GABAPENTIN 100 MG CAPS 1 po bid GABAPENTIN 21777581204 No Longer Active Tu Landeros MD Active B-12 100 MCG TABS Take one by mouth daily CYANOCOBALAMIN 21757383263 No Longer Active Tu Landeros MD Active BACTRIM DS 800-160 MG TABS 1 bid x 14 day start 09-28-13 SULFAMETHOXAZOLE-TRIMETHOPRIM 67847206992 No Longer Active Tu Landeros MD Active CARVEDILOL 12.5 MG TABS 1 po BID CARVEDILOL 39521542320 Active Lesli Kellogg APRN Active TRILIPIX 135 MG CPDR 1 q hs CHOLINE FENOFIBRATE 64858581450 Active Tu Landeros MD Active FENOFIBRATE 145 MG TABS 1 po qd FENOFIBRATE 61019828677 No Longer Active JASPREET Perez Active OMEPRAZOLE 20 MG TBEC 1 PO 30 MIN BEFORE 1ST MEAL OMEPRAZOLE 72183068907 No Longer Active JASPREET Perez Active SIMVASTATIN 40 MG TABS Take one by mouth daily SIMVASTATIN 53264103439 No Longer Active Gustavo JASPREET Green Active VENLAFAXINE HCL 75 MG TABS 1 po BID VENLAFAXINE HCL 95944116267 No Longer Active JASPREET Perez Active CIPRO 500 MG TAB 1 tablet by mouth twice daily CIPROFLOXACIN HCL 82978226860 No Longer Active Tu Landeros MD Active VENLAFAXINE HCL 37.5 MG TABS 1 po BID VENLAFAXINE HCL 31177007102 No Longer Active Suzebianca Nicole [facility] Active LAMISIL 250 MG TAB 1 po qd TERBINAFINE HCL 03238125470 No Longer Active Tu Landeros MD Active LORTAB 5 5-500 MG TABS 1/2 to 1 tablet by mouth every 4 hours as needed for pain HYDROCODONE-ACETAMINOPHEN 52634259649 No Longer Active Tu Landeros MD Active HYDROCODONE-ACETAMINOPHEN 5-500 MG TABS take one po Q 4-6 hours prn HYDROCODONE-ACETAMINOPHEN 21305898088 No Longer Active Tu Landeros MD Active BACTRIM DS 800-160 MG TABS 1 po BID x 7 days SULFAMETHOXAZOLE-TRIMETHOPRIM 97572020313 No Longer Active Tu Landeros MD Active VENLAFAXINE HCL 75 MG TABS 1 po BID VENLAFAXINE HCL 40211423752 No Longer Active Elvira Cervantes MD PhD Active TRAMADOL HCL 50 MG TABS 1 tablets every 6 hours as needed for pain TRAMADOL HCL 93667019973 No Longer Active Tu Landeros MD Active ACCU-CHEK FASTCLIX LANCETS MISC Use to check bloodsugar three times daily as needed LANCETS 47573829376 No Longer Active Tu Landeros MD Active ACCU-CHEK KEYONA PLUS STRP Use for testing bloodsugars three times daily as needed GLUCOSE BLOOD 85230053381 No Longer Active Tu Landeros MD Active ACCU-CHEK KEYONA PLUS W/DEVICE KIT Use for testing bloodsugars three times daily as needed BLOOD GLUCOSE MONITORING SUPPL 50847325965 No Longer Active Tu Landeros MD Active SPIRONOLACTONE 25 MG TAB 0.5 tablet by mouth daily SPIRONOLACTONE 68311945934 No Longer Active Tu Landeros MD Active ALPRAZOLAM 0.5 MG TABS 1 tab every 6hrs as needed ALPRAZOLAM 01619459197 No Longer Active Tu Landeros MD Active AUGMENTIN 875-125 MG TAB 1 tab by mouth twice daily with food AMOXICILLIN-POT CLAVULANATE 48510615444 No Longer Active Tu Landeros MD Active PREDNISONE 20 MG TAB 2 tabs daily for 3 days, 1 tab daily for 3 days, 1/2 tab daily for 2 days PREDNISONE 85577219765 No Longer Active Tu Landeros MD Active XANAX 0.5 MG TABS 1 tablet every 6 hrs prn ALPRAZOLAM 38351078939 No Longer Active Tu Landeros MD Active PREDNISONE 20 MG TAB 2 tabs daily for 3 days, 1 tab daily for 3 days, 1/2 tab daily for 2 days PREDNISONE 91963464845 No Longer Active Tu Landeros MD Active TRIAMCINOLONE ACETONIDE 0.1 % OINT Apply to affected areas TID for up to 2 weeks TRIAMCINOLONE ACETONIDE 08370142825 No Longer Active Tu Landeros MD Active LORTAB 5 5-500 MG TABS 1/2 to 1 tablet by mouth every 4 hours as needed for pain HYDROCODONE-ACETAMINOPHEN 97362584986 No Longer Active Tu Landeros MD Active MULTIVITAMINS TABS Take one by mouth daily MULTIPLE VITAMIN 65823873592 No Longer Active Tu Landeros MD Active MELATONIN 5 MG TABS Take one by mouth daily MELATONIN 93643282251 No Longer Active Tu Landeros MD Active SOMA 350 MG TAB 1 po q 6 hours prn spasm CARISOPRODOL 72269999224 No Longer Active Tu Landeros MD Active MECLIZINE HCL 25 MG CHEW TAB 1 four times a day as needed for dizziness 08/05 MECLIZINE HCL 85805848861 No Longer Active Fab Morales DO Active ANGEL BREEZE 2 TEST DISK test tid prn GLUCOSE BLOOD 30624410092 No Longer Active Negra Scott RN Active REGLAN 10 MG TAB 1 po TID PRN Nausea METOCLOPRAMIDE HCL 76424200678 No Longer Active Tu Landeros MD Active METFORMIN HCL 500 MG TABS 1 PO BID METFORMIN HCL 28130096801 No Longer Active Tu Landeros MD Active AMBIEN 10 MG TAB 1 tab by mouth at bedtime as needed for sleep ZOLPIDEM TARTRATE 29593703908 No Longer Active Tu Lnaderos MD Active FLUOXETINE HCL 40 MG CAPS 1 po q day FLUOXETINE HCL 07523079227 No Longer Active Mayra [place] Active TRILIPIX 135 MG CPDR 1 po qd CHOLINE FENOFIBRATE 45337497140 No Longer Active Tu Landeros MD Active AMBIEN 10 MG TAB 1 tab by mouth at bedtime as needed for sleep AMBIEN 10 MG TAB 759629 ZOLPIDEM TARTRATE Inactive METFORMIN HCL 500 MG TABS 1 PO BID METFORMIN HCL 500 MG TABS 325302 METFORMIN HCL Inactive REGLAN 10 MG TAB 1 po TID PRN Nausea REGLAN 10 MG TAB 801132 METOCLOPRAMIDE HCL Inactive MECLIZINE HCL 25 MG CHEW TAB 1 four times a day as needed for dizziness 08/05 MECLIZINE HCL 25 MG CHEW TAB 226145 MECLIZINE HCL Inactive SOMA 350 MG TAB 1 po q 6 hours prn spasm SOMA 350 MG TAB 967147 CARISOPRODOL Inactive MELATONIN 5 MG TABS Take one by mouth daily MELATONIN 5 MG TABS 577634 MELATONIN Inactive MULTIVITAMINS TABS Take one by mouth daily MULTIVITAMINS TABS MULTIPLE VITAMIN Inactive LORTAB 5 5-500 MG TABS 1/2 to 1 tablet by mouth every 4 hours as needed for pain LORTAB 5 5-500 MG TABS HYDROCODONE- ACETAMINOPHEN Inactive XANAX 0.5 MG TABS 1 tablet every 6 hrs prn XANAX 0.5 MG TABS 906243 ALPRAZOLAM Inactive AUGMENTIN 875-125 MG TAB 1 tab by mouth twice daily with food AUGMENTIN 875-125 MG TAB 809181 AMOXICILLIN-POT CLAVULANATE Inactive ALPRAZOLAM 0.5 MG TABS 1 tab every 6hrs as needed ALPRAZOLAM 0.5 MG TABS 533909 ALPRAZOLAM Inactive SPIRONOLACTONE 25 MG TAB 0.5 tablet by mouth daily SPIRONOLACTONE 25 MG TAB 918709 SPIRONOLACTONE Inactive ACCU-CHEK KEYONA PLUS W/DEVICE KIT Use for testing bloodsugars three times daily as needed ACCU-CHEK KEYONA PLUS W/DEVICE KIT BLOOD GLUCOSE MONITORING SUPPL Inactive ACCU-CHEK KEYONA PLUS STRP Use for testing bloodsugars three times daily as needed ACCU-CHEK KEYONA PLUS STRP GLUCOSE BLOOD Inactive ACCU-CHEK FASTCLIX LANCETS MISC Use to check bloodsugar three times daily as needed ACCU-CHEK FASTCLIX LANCETS [facility] [id number]ANCETS Inactive TRAMADOL HCL 50 MG TABS 1 tablets every 6 hours as needed for pain TRAMADOL HCL 50 MG TABS 766429 TRAMADOL HCL Inactive VENLAFAXINE HCL 75 MG TABS 1 po BID VENLAFAXINE HCL 75 MG TABS 385288 VENLAFAXINE HCL Inactive HYDROCODONE-ACETAMINOPHEN 5-500 MG TABS take one po Q 4-6 hours prn HYDROCODONE-ACETAMINOPHEN 5-500 MG TABS HYDROCODONE- ACETAMINOPHEN Inactive LORTAB 5 5-500 MG TABS 1/2 to 1 tablet by mouth every 4 hours as needed for pain LORTAB 5 5-500 MG TABS HYDROCODONE- ACETAMINOPHEN Inactive LAMISIL 250 MG TAB 1 po qd LAMISIL 250 MG TAB 992456 TERBINAFINE HCL Inactive VENLAFAXINE HCL 37.5 MG TABS 1 po BID VENLAFAXINE HCL 37.5 MG TABS 444131 VENLAFAXINE HCL Inactive CIPRO 500 MG TAB 1 tablet by mouth twice daily CIPRO 500 MG TAB 328889 CIPROFLOXACIN HCL Inactive VENLAFAXINE HCL 75 MG TABS 1 po BID VENLAFAXINE HCL 75 MG TABS 823025 VENLAFAXINE HCL Inactive SIMVASTATIN 40 MG TABS Take one by mouth daily SIMVASTATIN 40 MG TABS 722183 SIMVASTATIN Inactive OMEPRAZOLE 20 MG TBEC 1 PO 30 MIN BEFORE 1ST MEAL OMEPRAZOLE 20 MG TBEC 007726 OMEPRAZOLE Inactive FENOFIBRATE 145 MG TABS 1 po qd FENOFIBRATE 145 MG TABS 093079 FENOFIBRATE Inactive BACTRIM DS 800-160 MG TABS 1 bid x 14 day start 09-28-13 BACTRIM DS 800-160 MG TABS 567948 SULFAMETHOXAZOLE-TRIMETHOPRIM Inactive B-12 100 MCG TABS Take one by mouth daily B-12 100 MCG TABS CYANOCOBALAMIN Inactive GABAPENTIN 100 MG CAPS 1 po bid GABAPENTIN 100 MG CAPS 998885 GABAPENTIN Inactive HYDROCODONE-ACETAMINOPHEN 5-325 MG TABS 1 tab by mouth every 6 hours as needed for pain HYDROCODONE-ACETAMINOPHEN 5-325 MG TABS 095613 HYDROCODONE-ACETAMINOPHEN Inactive CIPRO 500 MG TABS 1 bid x 14 days start 09-28-13 CIPRO 500 MG TABS 957817 CIPROFLOXACIN HCL Inactive ALIGN 4 MG CAPS [...] as needed DICLOFENAC SODIUM 50 MG TBEC 018050 DICLOFENAC SODIUM Inactive PREDNISONE 20 MG TAB 2 tablets once daily for 2 days, then 1 tablet once daily for 2 days PREDNISONE 20 MG TAB 725230 PREDNISONE Inactive TRUEDRAW LANCING DEVICE MISC Test twice a day dx 250.0 TRUEDRAW LANCING DEVICE MISC LANCET DEVICES Inactive TRUERESULT BLOOD GLUCOSE W/DEVICE KIT test blood sugar twice daily dx 250.00 TRUERESULT BLOOD GLUCOSE W/DEVICE KIT BLOOD GLUCOSE MONITORING SUPPL Inactive FLONASE 50 MCG/ACT SUSP 1 spray each nostril twice daily until bottle empty FLONASE 50 MCG/ACT SUSP 8279547 FLUTICASONE PROPIONATE Inactive VENTOLIN HFA 108 (90 BASE) MCG/ACT AERS 1-2 puffs every 4 hours if needed for cough/congestion VENTOLIN HFA 108 (90 BASE) MCG/ACT AERS ALBUTEROL SULFATE Inactive REQUIP 2 MG TABS Take one tablet at bedtime prn REQUIP 2 MG TABS 690894 ROPINIROLE HCL Inactive SUPER B COMPLEX/VITAMIN C TABS 1 qd SUPER B COMPLEX/ VITAMIN C TABS 07615531765 B COMPLEX-C Inactive TRUEDRAW LANCING DEVICE MISC test blood sugar twice daily dx: 250.00 TRUEDRAW LANCING DEVICE MISC LANCET DEVICES Inactive TRUETEST TEST INVITR STRP test blood sugar twice daily. DX 250.0 TRUETEST TEST INVITR STRP GLUCOSE BLOOD Inactive TRIAMCINOLONE ACETONIDE 0.1 % OINT Apply to affected areas TID for up to 2 weeks TRIAMCINOLONE ACETONIDE 0.1 % OINT 6368054 TRIAMCINOLONE ACETONIDE Inactive PREDNISONE 20 MG TAB 2 tabs daily for 3 days, 1 tab daily for 3 days, 1/2 tab daily for 2 days PREDNISONE 20 MG TAB 823485 PREDNISONE Inactive PREDNISONE 20 MG TAB 2 tabs daily for 3 days, 1 tab daily for 3 days, 1/2 tab daily for 2 days PREDNISONE 20 MG TAB 895528 PREDNISONE Inactive BACTRIM DS 800-160 MG TABS 1 po BID x 7 days BACTRIM DS 800-160 MG TABS 951286 SULFAMETHOXAZOLE-TRIMETHOPRIM Inactive ZITHROMAX 250 MG TAB 2 po today, then 1 po q days 2-5 ZITHROMAX 250 MG TAB 8846164 AZITHROMYCIN Inactive Advance Directives Directive Description Start Date DISCUSSED WITH PATIENT -- NO DECISION MADE Immunizations Vaccine Administration Date Value Standard Description Seasonal influenza vaccine, injectable, containing preservative, for > 3 years old (Afluria, FluLaval, Fluzone, Fluvirin, Fluarix, Agriflu(>=18 yo)) Fluzone (>3 yrs.) [[id number]] Influenza, seasonal, injectable influenza immunization (Flu Vax) has been administered 02/22/2012 influenza virus vaccine, unspecified formulation Seasonal influenza vaccine, injectable, containing preservative, for > 3 years old (Afluria, FluLaval, Fluzone, Fluvirin, Fluarix, Agriflu(>=18 yo)) Fluzone (>3 yrs.) [[id number]] Influenza, seasonal, injectable Vital Signs Date Name [...] Magnesium - Chemistry sodium, serum 143 mmol/L 711-173 0225/01/10 carbon dioxide, venous blood 28.0 mmol/L 21.0-32.0 potassium, serum 4.5 mmol/L 3.5-5.2 chloride, serum 104 mmol/L 98-107 blood glucose 158 mg/dL 65-110 urea nitrogen, blood 23 mg/dL 7-18 creatinine, serum 1.06 mg/dL 0.55-1.30 alanine aminotransferase (SGPT), serum 42 U/L 12-78 aspartate aminotransferase (SGOT), serum 32 U/L 15-37 calcium, serum 9.3 mg/dL 8.5-10.1 bilirubin, serum, total 0.20 mg/dL 0.00-1.00 cholesterol, serum 177 mg/dL 769-050 5179/01/10 triglyceride, serum, fasting 320 mg/dL 30-200 HDL cholesterol, serum 46 mg/dL 32-96 LDL cholesterol, serum 67 mg/dL 0-130 Lab Report: COMPREHENSIVE METABOLIC PANEL, LIPID PANEL, HEMOGLOBIN A1c - Chemistry cholesterol, serum 135 mg/dL 443-586 7064/05/17 HDL cholesterol, serum 41 mg/dL > OR=46 triglyceride, serum, fasting 206 mg/dL <150 LDL cholesterol, serum 53 MG/DL (CALC) mg/dL <130 cholesterol/HDL ratio, serum 3.3 (calc) < OR=5.0 Lab Report: HGBA1C - Chemistry hemoglobin A1C, blood, as % of total hemoglobin 7.4 % 4.3-6.0 sodium, serum 140 mmol/L 901-079 5800/09/07 potassium, serum 4.3 mmol/L 3.5-5.2 chloride, serum [...] <30 Encounters Code Encounter Date Provider Facility CPT-29019 Level 3 Est. Patient 13:33:09 CDT Tu Landeros MD [facility] CPT-35813 Level 4 Est. Patient 14:29:21 CDT Tu Landeros MD [facility] CPT-10035 Level 4 Est. Patient 09:08:17 CATTLE MANAGER Tu Landeros MD [facility] CPT-93144 Level 4 Est. Patient 14:40:19 CDT Tu Landeros MD [facility] CPT-98655 Level 4 Est. Patient 14:06:04 CATTLE MANAGER Tu Landeros MD [facility] CPT-54649 Level 3 Est. Patient 14:05:18 CATTLE MANAGER Tu Landeros MD [facility] CPT-25977 Level 3 Est. Patient 10:06:54 CATTLE MANAGER Miranda Suresh APRN [facility] CPT-23243 Level 4 Est. Patient 13:50:18 CATTLE MANAGER Tu Landeros MD [facility] CPT-11875 Level 3 Est. Patient 10:30:04 CDT Tu Landeros MD [facility] CPT-86539 Level 4 Est. Patient 11:03:38 CDT Tu Landeros MD [facility] CPT-13577 Level 3 Est. Patient 10:20:44 CDT Fab Morales DO [facility] CPT-05564 Level 4 Est. Patient 14:38:57 CDT Tu Landeros MD [facility] CPT-24899 Level 4 Est. Patient 14:27:39 CATTLE MANAGER Tu Landeros MD [facility] CPT-01321 Level 4 Est. Patient 09:45:25 CDT Tu Landeros MD [facility] CPT-54372 Level 4 Est. Patient 09:05:20 CATTLE MANAGER Tu Landeros MD [facility] CPT-66089 Level 4 Est. Patient 14:09:06 CDT Tu Landeros MD [facility] CPT-09057 Level 3 Est. Patient 13:36:54 CDT Tu Landeros MD [facility] CPT-68291 Level 3 Est. Patient 08:59:14 CDT Tu Landeros MD [facility] CPT-58550 Level 3 Est. Patient 13:48:35 CDT Fab Morales DO [facility] CPT-71255 Level 4 Est. Patient 10:05:48 CDT Tu Landeros MD [facility] CPT-94455 Level 3 Est. Patient 13:38:42 CDT Marek BANKS [facility] CPT-23889 Level 5 Est. Patient 08:08:39 CDT Jerrica FRANCIS [facility] CPT-79094 Level 4 Est. Patient 14:23:38 CDT Tu Landeros MD [facility] CPT-55666 Level 3 Est. Patient 11:44:04 CDT Tu Landeros MD [facility] CPT-25880 Level 3 Est. Patient 11:03:20 CATTLE MANAGER Tu Landeros MD [facility] CPT-72401 Level 3 Est. Patient 11:03:14 CATTLE MANAGER Tu Landeros MD [facility] CPT-34331 Level 3 Est. Patient 12:42:49 CDT Tu Landeros MD [facility] CPT-21227 Level 3 Est. Patient 11:52:06 CDT Tu Landeros MD [facility] CPT-04997 Level 3 Est. Patient 13:58:11 CDT Tu Landeros MD [facility] CPT-02546 Level 3 Est. Patient 17:50:07 CDT Fab Morales DO [facility] CPT-87789 Level 3 Est. Patient 12:06:29 CDT Elvira Cervantes MD [facility] CPT-76504 Level 3 Est. Patient 15:50:32 CDT Tu Landeros MD [facility] CPT-44250 Level 4 Est. Patient 16:08:29 CDT Tu Landeros MD [facility] CPT-29291 Level 3 Est. Patient 16:04:19 CDT Tu Landeros MD [facility] CPT-95833 Level 3 Est. Patient 11:22:30 CATTLE MANAGER Tu Landeros MD [facility] CPT-35604 Level 4 Est. Patient 16:24:02 CATTLE MANAGER Tu Landeros MD [facility] CPT-42632 Level 3 Est. Patient 17:21:23 CATTLE MANAGER uT Landeros MD [facility] Procedures Code Procedure Name Date Entry Date Standard Description CPT-71622 Shoulder, right, comp min 2V - XRAY USE ONLY 13:50:22 CDT CPT-G0009 Administration of Pneumococcal Vaccine 15:08:26 CDT CPT-89867 Prevnar 13 Intramuscular Suspension 15:08:26 CDT 10/08 CPT-G0439 [facility] Annual Wellness Exam 14:29:22 CDT CPT-83040 Venipuncture Draw Fee 13:15:35 CDT CPT-55233 Magnesium - LAB USE ONLY 11:14:20 CATTLE MANAGER CPT-00499 Lipid - LAB USE ONLY 11:14:20 CATTLE MANAGER CPT-98093 HGBA1C - LAB USE ONLY 11:14:20 CATTLE MANAGER CPT-24008 CMP - LAB USE ONLY 11:14:19 CATTLE MANAGER CPT-28623 CBC - LAB USE ONLY 11:14:19 CATTLE MANAGER CPT-50973 Venipuncture Draw Fee 11:14:18 CATTLE MANAGER CPT-85940 First Vx - Ix admin for Medicare patients 16:46:52 CDT CPT-51057 Fluzone Preservative Free Intramuscular Suspension 16:46 :51 CDT CPT-24291 CBC - LAB USE ONLY 17:14:46 CDT CPT-37485 HGBA1C - LAB USE ONLY 17:14:46 CDT CPT-76845 Venipuncture Draw Fee 17:14:46 CDT CPT-G0438 Initial Annual Wellness Exam 14:13:04 CDT CPT-45806 Breathing Tx 10:06:54 CATTLE MANAGER CPT-95879 Postop F/U Visit 10:02:45 CDT CPT-LR Lesion Removal 09:02:56 CDT CPT-JTINJ Asp/Joint Injection 15:51:27 CATTLE MANAGER CPT-OV Office Visit 15:52:02 CATTLE MANAGER CPT-OV Office Visit 15:45:11 CDT CPT-000 Give Zostavax 14:09:06 CDT CPT-44890 Administration single or combination vaccine inc oral 15 :19:04 CDT CPT-50507 Zoster Vaccine (Zostavax) 15:19:04 CDT CPT-69665 Administration single or combination vaccine inc oral 20 :51:03 CDT CPT-42817 Influenza split virus > age 3 20:51:03 CDT CPT-17238 No Charge Offi Visit 14:52:03 CDT CPT-OV Office Visit 14:57:43 CDT CPT-OV Office Visit 15:22:32 CDT CPT-70592 Administration single or combination vaccine inc oral 11 :33:15 CDT CPT-93968 Influenza split virus > age 3 11:33:15 CDT
--- OUTSIDE RECORDS SUMMARY | 2018-04-25 18:36 | XMS REPORT | Clinical Summary ---
Author Author Admin, SACHI Organization [employer] Address Unknown Phone Unavailable Allergies, Adverse Reactions, [...] Tu Landeros MD DIZZINESS ICD-780.4 Inactive Tu Landerso MD BENIGN PAROXYSMAL POSITIONAL VERTIGO ICD-386.11 Inactive [...] MG TABS 1 po BID VENLAFAXINE HCL 08324931388 Active Tu Landeros MD Active GABAPENTIN 100 MG CAPS 1 po BID GABAPENTIN 20420950243 Active José Luis Becerra MD Active REQUIP 2 MG TABS Take one tablet at bedtime prn ROPINIROLE HCL 85329983844 No Longer Active Tu Landeros MD Active VENTOLIN HFA 108 (90 BASE) MCG/ACT AERS 1-2 puffs every 4 hours if needed for cough/congestion ALBUTEROL SULFATE 11155328359 No Longer Active Ambika Aden APRN Active ZITHROMAX 250 MG TAB 2 po today, then 1 po q days 2-5 AZITHROMYCIN 64671802740 No Longer Active Miranda Suresh APRN Active METFORMIN HCL 1000 MG TABS 1 tablet by mouth twice daily METFORMIN HCL 56675995487 Active Tu Landeros MD Active FLONASE 50 MCG/ACT SUSP 1 spray each nostril twice daily until bottle empty FLUTICASONE PROPIONATE 63055928072 No Longer Active Tu Landeros MD Active COLACE 100 MG CAP 1 po BID PRN Constipation DOCUSATE SODIUM 46360983454 Active Tu Landeros MD Active SIMVASTATIN 40 MG TABS 0.5 tab daily at bedtime SIMVASTATIN 67276827113 Active Tu Landeros MD Active TRUERESULT BLOOD GLUCOSE W/DEVICE KIT test blood sugar twice daily dx 250.00 BLOOD GLUCOSE MONITORING SUPPL 52755600673 No Longer Active Tu Landeros MD Active TRUEDRAW LANCING DEVICE MISC Test twice a day dx 250.0 LANCET DEVICES 85769071157 No Longer Active Tu Landeros MD Active PREDNISONE 20 MG TAB 2 tablets once daily for 2 days, then 1 tablet once daily for 2 days PREDNISONE 66110026986 No Longer Active Tu Landeros MD Active DICLOFENAC SODIUM 50 MG TBEC 1 tablet by mouth three times a day as needed DICLOFENAC SODIUM 51593485725 No Longer Active Fab Morales DO Active TRUEDRAW LANCING DEVICE MISC test blood sugar twice daily dx: 250.00 LANCET DEVICES 36817757304 Active Tu Landeros MD Active TRUETEST TEST INVITR STRP test blood sugar twice daily. DX 250.0 GLUCOSE BLOOD 92985780677 Active Tu Landeros MD Active EMBRACE BLOOD GLUCOSE TEST STRP test blood sugar twice daily DX 250.0 2014 GLUCOSE BLOOD 77111429703 No Longer Active Tu Landeros MD Active TRUETEST TEST STRP test blood sugar three times daily dx: 250.00 GLUCOSE BLOOD 97739850318 No Longer Active Suze Corey VOGEL Active TRUERESULT BLOOD GLUCOSE W/DEVICE KIT use to test blood sugar tid dx: 250.00 BLOOD GLUCOSE MONITORING SUPPL 29085443063 No Longer Active Suze Corey RMA Active ALIGN 4 MG CAPS 1 tid PROBIOTIC PRODUCT 91217205531 No Longer Active Shaun Sy MD Active CIPRO 500 MG TABS 1 bid x 14 days start 09-28-13 CIPROFLOXACIN HCL 00936994420 No Longer Active Shaun Sy MD Active TRAMADOL HCL 50 MG TABS 1-2 tablets every 6 hours as needed for pain TRAMADOL HCL 22513372126 Active Tu Landeros MD Active HYDROCODONE-ACETAMINOPHEN 5-325 MG TABS 1 tab by mouth every 6 hours as needed for pain HYDROCODONE-ACETAMINOPHEN 69112378215 No Longer Active Tu Landeros MD Active OMEPRAZOLE 20 MG CPDR 1 po q a.m. OMEPRAZOLE 82458365992 Active Tu Landeros MD Active GABAPENTIN 100 MG CAPS 1 po bid GABAPENTIN 41384357486 No Longer Active Tu Landeros MD Active B-12 100 MCG TABS Take one by mouth daily CYANOCOBALAMIN 19667765543 No Longer Active Tu Landeros MD Active BACTRIM DS 800-160 MG TABS 1 bid x 14 day start 09-28-13 SULFAMETHOXAZOLE-TRIMETHOPRIM 58546954559 No Longer Active Tu Landeros MD Active CARVEDILOL 12.5 MG TABS 1 po BID CARVEDILOL 75734932505 Active Tu Landeros MD Active SUPER B COMPLEX/VITAMIN C TABS 1 qd B COMPLEX-C 34354363895 Active JASPREET Perez Active TRILIPIX 135 MG CPDR 1 q hs CHOLINE FENOFIBRATE 73972692495 Active Tu Landeros MD Active FENOFIBRATE 145 MG TABS 1 po qd FENOFIBRATE 93741836841 No Longer Active JASPREET Perez Active OMEPRAZOLE 20 MG TBEC 1 PO 30 MIN BEFORE 1ST MEAL OMEPRAZOLE 34391682173 No Longer Active JASPREET Perez Active SIMVASTATIN 40 MG TABS Take one by mouth daily SIMVASTATIN 48136922139 No Longer Active JASPREET Perez Active VENLAFAXINE HCL 75 MG TABS 1 po BID VENLAFAXINE HCL 65273524914 No Longer Active Gustavo Norma, RMA Active CIPRO 500 MG TAB 1 tablet by mouth twice daily CIPROFLOXACIN HCL 30887947642 No Longer Active Tu Landeros MD Active VENLAFAXINE HCL 37.5 MG TABS 1 po BID VENLAFAXINE HCL 66649352221 No Longer Active Suze Nicole RMA Active LAMISIL 250 MG TAB 1 po qd TERBINAFINE HCL 33646850334 No Longer Active Tu Landeros MD Active LORTAB 5 5-500 MG TABS 1/2 to 1 tablet by mouth every 4 hours as needed for pain HYDROCODONE-ACETAMINOPHEN 56776250624 No Longer Active Tu Landeros MD Active ENALAPRIL MALEATE 20 MG TABS 1.5 po qd ENALAPRIL MALEATE 76542666248 Active Tu Landeros MD Active HYDROCODONE-ACETAMINOPHEN 5-500 MG TABS take one po Q 4-6 hours prn HYDROCODONE-ACETAMINOPHEN 43328168099 No Longer Active Tu Landeros MD Active BACTRIM DS 800-160 MG TABS 1 po BID x 7 days SULFAMETHOXAZOLE-TRIMETHOPRIM 50470463582 No Longer Active Tu Landeros MD Active VENLAFAXINE HCL 75 MG TABS 1 po BID VENLAFAXINE HCL 00227878184 No Longer Active Elvira Cervantes MD PhD Active TRAMADOL HCL 50 MG TABS 1 tablets every 6 hours as needed for pain TRAMADOL HCL 81699699643 No Longer Active Tu Landeros MD Active ACCU-CHEK FASTCLIX LANCETS MISC Use to check bloodsugar three times daily as needed LANCETS 91654573871 No Longer Active Tu Landeros MD Active ACCU-CHEK KEYONA PLUS STRP Use for testing bloodsugars three times daily as needed GLUCOSE BLOOD 05667232799 No Longer Active Tu Landeros MD Active ACCU-CHEK KEYONA PLUS W/DEVICE KIT Use for testing bloodsugars three times daily as needed BLOOD GLUCOSE MONITORING SUPPL 73369449324 No Longer Active Tu Landeros MD Active SPIRONOLACTONE 25 MG TAB 0.5 tablet by mouth daily SPIRONOLACTONE 72564917886 No Longer Active Tu Landeros MD Active ALPRAZOLAM 0.5 MG TABS 1 tab every 6hrs as needed ALPRAZOLAM 32679756804 No Longer Active Tu Landeros MD Active AUGMENTIN 875-125 MG TAB 1 tab by mouth twice daily with food AMOXICILLIN-POT CLAVULANATE 47347309787 No Longer Active Tu Landeros MD Active PREDNISONE 20 MG TAB 2 tabs daily for 3 days, 1 tab daily for 3 days, 1/2 tab daily for 2 days PREDNISONE 66379739793 No Longer Active Tu Landeros MD Active XANAX 0.5 MG TABS 1 tablet every 6 hrs prn ALPRAZOLAM 65258364746 No Longer Active Tu Landeros MD Active PREDNISONE 20 MG TAB 2 tabs daily for 3 days, 1 tab daily for 3 days, 1/2 tab daily for 2 days PREDNISONE 55506547758 No Longer Active Tu Landeros MD Active TRIAMCINOLONE ACETONIDE 0.1 % OINT Apply to affected areas TID for up to 2 weeks TRIAMCINOLONE ACETONIDE 33518422206 No Longer Active Tu Landeros MD Active LORTAB 5 5-500 MG TABS 1/2 to 1 tablet by mouth every 4 hours as needed for pain HYDROCODONE-ACETAMINOPHEN 68595193626 No Longer Active Tu Landeros MD Active MULTIVITAMINS TABS Take one by mouth daily MULTIPLE VITAMIN 69571004082 No Longer Active Tu Landeros MD Active MELATONIN 5 MG TABS Take one by mouth daily MELATONIN 35803741389 No Longer Active Tu Landeros MD Active SOMA 350 MG TAB 1 po q 6 hours prn spasm CARISOPRODOL 05272839519 No Longer Active Tu Landeros MD Active MECLIZINE HCL 25 MG CHEW TAB 1 four times a day as needed for dizziness 08/05 MECLIZINE HCL 37770475568 No Longer Active Fab Morales DO Active ANGEL BREEZE 2 TEST DISK test tid prn GLUCOSE BLOOD 72421173129 No Longer Active Negra Scott RN Active REGLAN 10 MG TAB 1 po TID PRN [place] METOCLOPRAMIDE HCL 27480414438 No Longer Active Tu Landeros MD Active METFORMIN HCL 500 MG TABS 1 PO BID METFORMIN HCL 11238005105 No Longer Active Tu Landeros MD Active AMBIEN 10 MG TAB 1 tab by mouth at bedtime as needed for sleep ZOLPIDEM TARTRATE 23693923639 No Longer Active Tu Landeros MD Active FLUOXETINE HCL 40 MG CAPS 1 po q day FLUOXETINE HCL 80423858425 No Longer Active Mayrayolanda FieldsF[place] Active FISH OIL 1000 MG CAPS Take one by mouth daily OMEGA-3 FATTY ACIDS 25508252020 Active Tu Landeros MD Active GLUCOSAMINE 500 MG TABS Take 2 tab po qd GLUCOSAMINE 19123378845 Active Tu Landeros MD Active TRILIPIX 135 MG CPDR 1 po qd CHOLINE FENOFIBRATE 64511325716 No Longer Active Tu Landeros MD Active ASPIRIN 81 MG CHEW TAB 1 tablet by mouth daily ASPIRIN 78084444979 Active Tu Landeros MD Active FUROSEMIDE 40 MG TAB 1 tablet by mouth daily FUROSEMIDE 64790123716 Active Tu Landeros MD Active KLOR-CON 10 10 MEQ CR-TABS TAKE 2 TABS DAILY POTASSIUM CHLORIDE 20774664937 Active Tu Landeros MD Active AMBIEN 10 MG TAB 1 tab by mouth at bedtime as needed for sleep AMBIEN 10 MG TAB 304519 ZOLPIDEM TARTRATE Inactive METFORMIN HCL 500 MG TABS 1 PO BID METFORMIN HCL 500 MG TABS 500865 METFORMIN HCL Inactive REGLAN 10 MG TAB 1 po TID PRN Nausea REGLAN 10 MG TAB 326865 METOCLOPRAMIDE HCL Inactive MECLIZINE HCL 25 MG CHEW TAB 1 four times a day as needed for dizziness 08/05 MECLIZINE HCL 25 MG CHEW TAB 431190 MECLIZINE HCL Inactive SOMA 350 MG TAB 1 po q 6 hours prn spasm SOMA 350 MG TAB 341892 CARISOPRODOL Inactive MELATONIN 5 MG TABS Take one by mouth daily MELATONIN 5 MG TABS 042453 MELATONIN Inactive MULTIVITAMINS TABS Take one by mouth daily MULTIVITAMINS TABS MULTIPLE VITAMIN Inactive LORTAB 5 5-500 MG TABS 1/2 to 1 tablet by mouth every 4 hours as needed for pain LORTAB 5 5-500 MG TABS HYDROCODONE- ACETAMINOPHEN Inactive XANAX 0.5 MG TABS 1 tablet every 6 hrs prn XANAX 0.5 MG TABS 729332 ALPRAZOLAM Inactive AUGMENTIN 875-125 MG TAB 1 tab by mouth twice daily with food AUGMENTIN 875-125 MG TAB 581928 AMOXICILLIN-POT CLAVULANATE Inactive ALPRAZOLAM 0.5 MG TABS 1 tab every 6hrs as needed ALPRAZOLAM 0.5 MG TABS 087827 ALPRAZOLAM Inactive SPIRONOLACTONE 25 MG TAB 0.5 tablet by mouth daily SPIRONOLACTONE 25 MG TAB 220151 SPIRONOLACTONE Inactive ACCU-CHEK KEYONA PLUS W/DEVICE KIT Use for testing bloodsugars three times daily as needed ACCU-CHEK KEYONA PLUS W/DEVICE KIT BLOOD GLUCOSE MONITORING SUPPL Inactive ACCU-CHEK KEYONA PLUS STRP Use for testing bloodsugars three times daily as needed ACCU-CHEK KEYONA PLUS STRP GLUCOSE BLOOD Inactive ACCU-CHEK FASTCLIX LANCETS MISC Use to check bloodsugar three times daily as needed ACCU-CHEK FASTCLIX LANCETS MISC 35086648105 [facility] Inactive TRAMADOL HCL 50 MG TABS 1 tablets every 6 hours as needed for pain TRAMADOL HCL 50 MG TABS 198360 TRAMADOL HCL Inactive VENLAFAXINE HCL 75 MG TABS 1 po BID VENLAFAXINE HCL 75 MG TABS 709236 VENLAFAXINE HCL Inactive HYDROCODONE-ACETAMINOPHEN 5-500 MG TABS take one po Q 4-6 hours prn HYDROCODONE-ACETAMINOPHEN 5-500 MG TABS HYDROCODONE- ACETAMINOPHEN Inactive LORTAB 5 5-500 MG TABS 1/2 to 1 tablet by mouth every 4 hours as needed for pain LORTAB 5 5-500 MG TABS HYDROCODONE- ACETAMINOPHEN Inactive LAMISIL 250 MG TAB 1 po qd LAMISIL 250 MG TAB 226010 TERBINAFINE HCL Inactive VENLAFAXINE HCL 37.5 MG TABS 1 po BID VENLAFAXINE HCL 37.5 MG TABS 483116 VENLAFAXINE HCL Inactive CIPRO 500 MG TAB 1 tablet by mouth twice daily CIPRO 500 MG TAB 395340 CIPROFLOXACIN HCL Inactive VENLAFAXINE HCL 75 MG TABS 1 po BID VENLAFAXINE HCL 75 MG TABS 005910 VENLAFAXINE HCL Inactive SIMVASTATIN 40 MG TABS Take one by mouth daily SIMVASTATIN 40 MG TABS 330164 SIMVASTATIN Inactive OMEPRAZOLE 20 MG TBEC 1 PO 30 MIN BEFORE 1ST MEAL OMEPRAZOLE 20 MG TBEC 132250 OMEPRAZOLE Inactive FENOFIBRATE 145 MG TABS 1 po qd FENOFIBRATE 145 MG TABS 366325 FENOFIBRATE Inactive BACTRIM DS 800-160 MG TABS 1 bid x 14 day start 09-28-13 BACTRIM DS 800-160 MG TABS 184074 SULFAMETHOXAZOLE-TRIMETHOPRIM Inactive B-12 100 MCG TABS Take one by mouth daily B-12 100 MCG TABS CYANOCOBALAMIN Inactive GABAPENTIN 100 MG CAPS 1 po bid GABAPENTIN 100 MG CAPS 150283 GABAPENTIN Inactive HYDROCODONE-ACETAMINOPHEN 5-325 MG TABS 1 tab by mouth every 6 hours as needed for pain HYDROCODONE-ACETAMINOPHEN 5-325 MG TABS 152260 HYDROCODONE-ACETAMINOPHEN Inactive CIPRO 500 MG TABS 1 bid x 14 days start 14 CIPRO 500 MG TABS 460833 CIPROFLOXACIN HCL Inactive ALIGN 4 MG CAPS [...] as needed DICLOFENAC SODIUM 50 MG TBEC 379629 DICLOFENAC SODIUM Inactive PREDNISONE 20 MG TAB 2 tablets once daily for 2 days, then 1 tablet once daily for 2 days PREDNISONE 20 MG TAB 259268 PREDNISONE Inactive TRUEDRAW LANCING DEVICE MISC Test [...] at bedtime prn REQUIP 2 MG TABS 730169 ROPINIROLE HCL Inactive TRIAMCINOLONE ACETONIDE 0.1 % OINT Apply to affected areas TID for up to 2 weeks TRIAMCINOLONE ACETONIDE 0.1 % OINT 8363809 TRIAMCINOLONE ACETONIDE Inactive PREDNISONE 20 MG TAB 2 tabs daily for 3 days, 1 tab daily for 3 days, 1/2 tab daily for 2 days PREDNISONE 20 MG TAB 953528 PREDNISONE Inactive PREDNISONE 20 MG TAB 2 tabs daily for 3 days, 1 tab daily for 3 days, 1/2 tab daily for 2 days PREDNISONE 20 MG TAB 791324 PREDNISONE Inactive BACTRIM DS 800-160 MG TABS 1 po BID x 7 days BACTRIM DS 800-160 MG TABS 670023 SULFAMETHOXAZOLE-TRIMETHOPRIM Inactive ZITHROMAX 250 MG TAB 2 po today, then 1 po q days 2-5 ZITHROMAX 250 MG TAB 7545394 AZITHROMYCIN Inactive Advance Directives Directive Description Start Date DISCUSSED WITH PATIENT -- NO DECISION MADE Immunizations Vaccine Administration Date Value Standard Description Seasonal influenza vaccine, injectable, containing preservative, for > 3 years old (Afluria, FluLaval, Fluzone, Fluvirin, Fluarix, Agriflu(>=18 yo)) Fluzone (>3 yrs.) [[id number]] Influenza, seasonal, injectable influenza immunization (Flu Vax) has been administered 02/22/2012 influenza virus vaccine, unspecified formulation Seasonal influenza vaccine, injectable, containing preservative, for > 3 years old (Afluria, FluLaval, Fluzone, Fluvirin, Fluarix, Agriflu(>=18 yo)) Fluzone (>3 yrs.) [[id number]] Influenza, seasonal, injectable Vital Signs Date Name [...] 7.4 % 4.3-6.0 sodium, serum 140 mmol/L 923-372 7540/09/07 potassium, serum 4.3 mmol/L 3.5-5.2 chloride, serum 104 mmol/L 98-107 carbon dioxide, venous blood 27.7 mmol/L 21.0-32.0 blood glucose 156 mg/dL 65-110 calcium, serum 9.3 mg/dL 8.5-10.1 urea nitrogen, blood 23 mg/dL 7-18 creatinine, serum 1.21 mg/dL 0.55-1.30 Lab Report: Lipid Panel, Comp. Metabolic Panel - Chemistry cholesterol, serum 124 mg/dL 231-033 4838/01/12 triglyceride, serum, fasting 135 mg/dL 30-200 HDL cholesterol, serum 41 mg/dL 32-96 LDL cholesterol, serum 56 mg/dL 0-130 sodium, serum 140 mmol/L 639-718 9442/01/12 carbon dioxide, venous blood 27.7 mmol/L 21.0-32.0 potassium, serum 4.5 mmol/L 3.5-5.2 chloride, serum 104 mmol/L 98-107 blood glucose 139 mg/dL 65-110 urea nitrogen, blood 16 mg/dL 7-18 alanine aminotransferase (SGPT), serum 32 U/L 12-78 aspartate aminotransferase (SGOT), serum 25 U/L 15-37 calcium, serum 9.1 mg/dL 8.5-10.1 bilirubin, serum, total 0.50 mg/dL 0.00-1.00 Encounters Code Encounter Date Provider Facility CPT-61206 Level 4 Est. Patient 14:40:19 CDT Tu Landeros MD [facility] CPT-15381 Level 4 Est. Patient 14:06:04 CARGO CHECKER Tu Landeros MD [facility] CPT-39304 Level 3 Est. Patient 14:05:18 CARGO CHECKER Tu Landeros MD [facility] CPT-17255 Level 3 Est. Patient 10:06:54 CARGO CHECKER Miranda Suresh APRN [facility] CPT-27582 Level 4 Est. Patient 13:50:18 CARGO CHECKER Tu Landeros MD [facility] CPT-50909 Level 3 Est. Patient 10:30:04 CDT Tu Landeros MD [facility] CPT-28174 Level 4 Est. Patient 11:03:38 CDT Tu Landeros MD [facility] CPT-30932 Level 3 Est. Patient 10:20:44 CDT Fab Morales DO [facility] CPT-96721 Level 4 Est. Patient 14:38:57 CDT Tu Landeros MD [facility] CPT-39976 Level 4 Est. Patient 14:27:39 CARGO CHECKER Tu Landeros MD [facility] CPT-58528 Level 4 Est. Patient 09:45:25 CDT Tu Landeros MD [facility] CPT-47291 Level 4 Est. Patient 09:05:20 CARGO CHECKER Tu Landeros MD [facility] CPT-20120 Level 4 Est. Patient 14:09:06 CDT Tu Landeros MD [facility] CPT-39155 Level 3 Est. Patient 13:36:54 CDT Tu Landeros MD [facility] CPT-59307 Level 3 Est. Patient 08:59:14 CDT Tu Landeros MD [facility] CPT-61767 Level 3 Est. Patient 13:48:35 CDT Fab Morales DO [facility] CPT-23798 Level 4 Est. Patient 10:05:48 CDT Tu Landeros MD [facility] CPT-61358 Level 3 Est. Patient 13:38:42 CDT Marek BANKS [facility] CPT-01280 Level 5 Est. Patient 08:08:39 CDT Jerrica FRANCIS [facility] CPT-32519 Level 4 Est. Patient 14:23:38 CDT Tu Landeros MD [facility] CPT-18955 Level 3 Est. Patient 11:44:04 CDT Tu Landeros MD [facility] CPT-77780 Level 3 Est. Patient 11:03:20 CARGO CHECKER Tu Landeros MD [facility] CPT-21630 Level 3 Est. Patient 11:03:14 CARGO CHECKER Tu Landeros MD [facility] CPT-56857 Level 3 Est. Patient 12:42:49 CDT Tu Landeros MD [facility] CPT-73113 Level 3 Est. Patient 11:52:06 CDT Tu Landeros MD [facility] CPT-28362 Level 3 Est. Patient 13:58:11 CDT Tu Landeros MD [facility] CPT-37975 Level 3 Est. Patient 17:50:07 CDT Fab Morales DO [facility] CPT-87008 Level 3 Est. Patient 12:06:29 CDT Elvira Cervantes MD, PhD [facility] CPT-53208 Level 3 Est. Patient 15:50:32 CDT Tu Landeros MD [facility] CPT-56857 Level 4 Est. Patient 16:08:29 CDT Tu Landeros MD [facility] CPT-82205 Level 3 Est. Patient 16:04:19 CDT Tu Landeros MD [facility] CPT-73193 Level 3 Est. Patient 11:22:30 CARGO CHECKER Tu Landeros MD [facility] CPT-74037 Level 4 Est. Patient 16:24:02 CARGO CHECKER Tu Landeros MD [facility] CPT-34022 Level 3 Est. Patient 17:21:23 CARGO CHECKER Tu Landeros MD [facility] Procedures Code Procedure Name Date Entry Date Standard Description CPT-80452 First Vx - Ix admin for Medicare patients 16:46:52 CDT CPT-13903 Fluzone Preservative Free Intramuscular Suspension 16:46 :51 CDT CPT-26297 CBC - LAB USE ONLY 17:14:46 CDT CPT-68780 HGBA1C - LAB USE ONLY 17:14:46 CDT CPT-46861 Venipuncture Draw Fee 17:14:46 CDT CPT-G0438 Initial Annual Wellness Exam 14:13:04 CDT CPT-75486 Breathing Tx 10:06:54 CARGO CHECKER CPT-27035 Postop F/U Visit 10:02:45 CDT CPT-LR Lesion Removal 09:02:56 CDT CPT-JTINJ Asp/Joint Injection 15:51:27 CARGO CHECKER CPT-OV Office Visit 15:52:02 CARGO CHECKER CPT-OV Office Visit 15:45:11 CDT CPT-000 Give Zostavax 14:09:06 CDT CPT-24823 Administration single or combination vaccine inc oral 15 :19:04 CDT CPT-21957 Zoster Vaccine (Zostavax) 15:19:04 CDT CPT-68754 Administration single or combination vaccine inc oral 20 :51:03 CDT CPT-99414 Influenza split virus > age 3 20:51:03 CDT CPT-35037 No Charge Offi Visit 14:52:03 CDT CPT-OV Office Visit 14:57:43 CDT CPT-OV Office Visit 15:22:32 CDT CPT-85164 Administration single or combination vaccine inc oral 11 :33:15 CDT CPT-86467 Influenza split virus > age 3 11:33:15 CDT
--- OUTSIDE RECORDS SUMMARY | 2018-04-25 18:39 | XMS REPORT | Clinical Summary ---
Author Author Admin, SACHI Organization [employer] Address Unknown Phone Unavailable Allergies, Adverse [...] level not further specified 369.20 Active Ambika METALIZER Moderate or severe vision impairment, both eyes, [...] UNSPECIFIED SITE ICD-924.9 Inactive Tu Landeros MD Upper respiratory infection, [...] hours if needed for cough/congestion ALBUTEROL SULFATE 05278922566 No Longer Active Ambika Aden APRN Active ZITHROMAX 250 MG TAB 2 po today, then 1 po q days 2-5 AZITHROMYCIN 31543498452 No Longer Active Miranda Suresh APRN Active METFORMIN HCL 1000 MG TABS 1 tablet by mouth twice daily METFORMIN HCL 21599648384 Active Tu Landeros MD Active FLONASE 50 MCG/ACT SUSP 1 spray each nostril twice daily until bottle empty FLUTICASONE PROPIONATE 80055028303 No Longer Active Tu Landeros MD Active COLACE 100 MG CAP 1 po BID PRN Constipation DOCUSATE SODIUM 69113884541 Active Tu Landeros MD Active SIMVASTATIN 40 MG TABS 0.5 tab daily at bedtime SIMVASTATIN 71631550601 Active Tu Landeros MD Active TRUERESULT BLOOD GLUCOSE W/DEVICE KIT test blood sugar twice daily dx 250.00 BLOOD GLUCOSE MONITORING SUPPL 71683481183 No Longer Active Tu Landeros MD Active TRUEDRAW LANCING DEVICE MISC Test twice a day dx 250.0 LANCET DEVICES 10968899214 No Longer Active Tu Landeros MD Active PREDNISONE 20 MG TAB 2 tablets once daily for 2 days, then 1 tablet once daily for 2 days PREDNISONE 95902906953 No Longer Active Tu Landeros MD Active DICLOFENAC SODIUM 50 MG TBEC 1 tablet by mouth three times a day as needed DICLOFENAC SODIUM 47537097399 No Longer Active Fab Morales DO Active TRUEDRAW LANCING DEVICE MISC test blood sugar twice daily dx: 250.00 LANCET DEVICES 41586614878 Active Tu Landeros MD Active TRUETEST TEST INVITR STRP test blood sugar twice daily. DX 250.0 GLUCOSE BLOOD 49286306410 Active Tu Landeros MD Active EMBRACE BLOOD GLUCOSE TEST STRP test blood sugar twice daily DX 250.0 2014 GLUCOSE BLOOD 84672281768 No Longer Active Tu Landeros MD Active TRUETEST TEST STRP test blood sugar three times daily dx: 250.00 GLUCOSE BLOOD 55088176809 No Longer Active Suzebianca Nicole RMMahendra Active TRUERESULT BLOOD GLUCOSE W/DEVICE KIT use to test blood sugar tid dx: 250.00 BLOOD GLUCOSE MONITORING SUPPL 99945390241 No Longer Active Suze Corey RMA Active ALIGN 4 MG CAPS 1 tid PROBIOTIC PRODUCT 80250427008 No Longer Active Shaun Sy MD Active CIPRO 500 MG TABS 1 bid x 14 days start 09-28-13 CIPROFLOXACIN HCL 60037584788 No Longer Active Shaun Sy MD Active TRAMADOL HCL 50 MG TABS 1-2 tablets every 6 hours as needed for pain TRAMADOL HCL 31384544619 Active Tu Landeros MD Active HYDROCODONE-ACETAMINOPHEN 5-325 MG TABS 1 tab by mouth every 6 hours as needed for pain HYDROCODONE-ACETAMINOPHEN 07192662674 No Longer Active Tu Landeros MD Active OMEPRAZOLE 20 MG CPDR 1 po q a.m. OMEPRAZOLE 10859393820 Active Tu Landeros MD Active GABAPENTIN 100 MG CAPS 1 po bid GABAPENTIN 55275042350 No Longer Active Tu Landeros MD Active B-12 100 MCG TABS Take one by mouth daily CYANOCOBALAMIN 51886496548 No Longer Active Tu Landeros MD Active GABAPENTIN 100 MG CAPS by mouth twice a day GABAPENTIN 17992379100 Active Tu Landeros MD Active BACTRIM DS 800-160 MG TABS 1 bid x 14 day start 14 SULFAMETHOXAZOLE-TRIMETHOPRIM 18485862050 No Longer Active Tu Landeros MD Active CARVEDILOL 12.5 MG TABS 1 po BID CARVEDILOL 63139931516 Active Kofilaura Fatumashahid METALIZER Active SUPER B COMPLEX/VITAMIN C TABS 1 qd B COMPLEX-C 14000458091 Active JASPREET Peerz Active TRILIPIX 135 MG CPDR 1 q hs CHOLINE FENOFIBRATE 77802899958 Active Tu Landeros MD Active FENOFIBRATE 145 MG TABS 1 po qd FENOFIBRATE 11022248551 No Longer Active JASPREET Perez Active OMEPRAZOLE 20 MG TBEC 1 PO 30 MIN BEFORE 1ST MEAL OMEPRAZOLE 51572919283 No Longer Active JASPREET Perez Active SIMVASTATIN 40 MG TABS Take one by mouth daily SIMVASTATIN 24780220853 No Longer Active JASPREET Perez Active VENLAFAXINE HCL 37.5 MG TABS 1 bid VENLAFAXINE HCL 41099862441 Active Tu Landeros MD Active VENLAFAXINE HCL 75 MG TABS 1 po BID VENLAFAXINE HCL 04233332462 No Longer Active JASPREET Perez Active CIPRO 500 MG TAB 1 tablet by mouth twice daily CIPROFLOXACIN HCL 70128056601 No Longer Active Tu Landeros MD Active VENLAFAXINE HCL 37.5 MG TABS 1 po BID VENLAFAXINE HCL 63688089904 No Longer Active Suze Corey RMA Active LAMISIL 250 MG TAB 1 po qd TERBINAFINE HCL 47003697957 No Longer Active Tu Landeros MD Active LORTAB 5 5-500 MG TABS 1/2 to 1 tablet by mouth every 4 hours as needed for pain HYDROCODONE-ACETAMINOPHEN 14860076186 No Longer Active Tu Landeros MD Active ENALAPRIL MALEATE 20 MG TABS 1.5 po qd ENALAPRIL MALEATE 64789547991 Active Tu Landeros MD Active HYDROCODONE-ACETAMINOPHEN 5-500 MG TABS take one po Q 4-6 hours prn HYDROCODONE-ACETAMINOPHEN 76598799836 No Longer Active Tu Landeros MD Active BACTRIM DS 800-160 MG TABS 1 po BID x 7 days SULFAMETHOXAZOLE-TRIMETHOPRIM 00372570916 No Longer Active Tu Landeros MD Active VENLAFAXINE HCL 75 MG TABS 1 po BID VENLAFAXINE HCL 04512035145 No Longer Active Elvira Cervantes MD PhD Active TRAMADOL HCL 50 MG TABS 1 tablets every 6 hours as needed for pain TRAMADOL HCL 09323648692 No Longer Active Tu Landeros MD Active ACCU-CHEK FASTCLIX LANCETS MISC Use to check bloodsugar three times daily as needed LANCETS 71959657893 No Longer Active Tu Landeros MD Active ACCU-CHEK KEYONA PLUS STRP Use for testing bloodsugars three times daily as needed GLUCOSE BLOOD 34065682903 No Longer Active Tu Landeros MD Active ACCU-CHEK KEYONA PLUS W/DEVICE KIT Use for testing bloodsugars three times daily as needed BLOOD GLUCOSE MONITORING SUPPL 79685551215 No Longer Active Tu Landeros MD Active SPIRONOLACTONE 25 MG TAB 0.5 tablet by mouth daily SPIRONOLACTONE 40088460322 No Longer Active Tu Landeros MD Active ALPRAZOLAM 0.5 MG TABS 1 tab every 6hrs as needed ALPRAZOLAM 95495864335 No Longer Active Tu Landeros MD Active AUGMENTIN 875-125 MG TAB 1 tab by mouth twice daily with food AMOXICILLIN-POT CLAVULANATE 48197402649 No Longer Active Tu Landeros MD Active PREDNISONE 20 MG TAB 2 tabs daily for 3 days, 1 tab daily for 3 days, 1/2 tab daily for 2 days PREDNISONE 31239396913 No Longer Active Tu Landeros MD Active XANAX 0.5 MG TABS 1 tablet every 6 hrs prn ALPRAZOLAM 58248601957 No Longer Active Tu Landeros MD Active PREDNISONE 20 MG TAB 2 tabs daily for 3 days, 1 tab daily for 3 days, 1/2 tab daily for 2 days PREDNISONE 69282688391 No Longer Active Tu Landeros MD Active TRIAMCINOLONE ACETONIDE 0.1 % OINT Apply to affected areas TID for up to 2 weeks TRIAMCINOLONE ACETONIDE 17077643338 No Longer Active Tu Landeros MD Active LORTAB 5 5-500 MG TABS 1/2 to 1 tablet by mouth every 4 hours as needed for pain HYDROCODONE-ACETAMINOPHEN 25233124656 No Longer Active Tu Landeros MD Active MULTIVITAMINS TABS Take one by mouth daily MULTIPLE VITAMIN 01187127220 No Longer Active Tu Landeros MD Active MELATONIN 5 MG TABS Take one by mouth daily MELATONIN 96058192015 No Longer Active Tu Landeros MD Active SOMA 350 MG TAB 1 po q 6 hours prn spasm CARISOPRODOL 37649000489 No Longer Active Tu Landeros MD Active MECLIZINE HCL 25 MG CHEW TAB 1 four times a day as needed for dizziness 08/05 MECLIZINE HCL 52699069974 No Longer Active Fab Morales DO Active ANGEL BREEZE 2 TEST DISK test tid prn GLUCOSE BLOOD 41475644407 No Longer Active Negra Scott RN Active REGLAN 10 MG TAB 1 po TID PRN Nausea METOCLOPRAMIDE HCL 57403892999 No Longer Active uT Landeros MD Active METFORMIN HCL 500 MG TABS 1 PO BID METFORMIN HCL 83781608256 No Longer Active Tu Landeros MD Active AMBIEN 10 MG TAB 1 tab by mouth at bedtime as needed for sleep ZOLPIDEM TARTRATE 25017041670 No Longer Active Tu Landeros MD Active FLUOXETINE HCL 40 MG CAPS 1 po q day FLUOXETINE HCL 61784049525 No Longer Active Mayra Terry Active FISH OIL 1000 MG CAPS Take one by mouth daily OMEGA-3 FATTY ACIDS 18097523325 Active Tu Landeros MD Active GLUCOSAMINE 500 MG TABS Take 2 tab po qd GLUCOSAMINE 38254801890 Active Tu Landeros MD Active TRILIPIX 135 MG CPDR 1 po qd CHOLINE FENOFIBRATE 92074513191 No Longer Active Tu Landeros MD Active ASPIRIN 81 MG CHEW TAB 1 tablet by mouth daily ASPIRIN 09298931528 Active Tu Landeros MD Active FUROSEMIDE 40 MG TAB 1 tablet by mouth daily FUROSEMIDE 23992298115 Active Tu Landeros MD Active REQUIP 2 MG TABS Take one tablet at bedtime prn ROPINIROLE HCL 40447358542 Active Tu Landeros MD Active KLOR-CON 10 10 MEQ CR-TABS TAKE 2 TABS DAILY POTASSIUM CHLORIDE 69334579317 Active Tu Landeros MD Active AMBIEN 10 MG TAB 1 tab by mouth at bedtime as needed for sleep AMBIEN 10 MG TAB 106335 ZOLPIDEM TARTRATE Inactive METFORMIN HCL 500 MG TABS 1 PO BID METFORMIN HCL 500 MG TABS 290557 METFORMIN HCL Inactive REGLAN 10 MG TAB 1 po TID PRN Nausea REGLAN 10 MG TAB 434656 METOCLOPRAMIDE HCL Inactive MECLIZINE HCL 25 MG CHEW TAB 1 four times a day as needed for dizziness 08/05 MECLIZINE HCL 25 MG CHEW TAB 024989 MECLIZINE HCL Inactive SOMA 350 MG TAB 1 po q 6 hours prn spasm SOMA 350 MG TAB 253003 CARISOPRODOL Inactive MELATONIN 5 MG TABS Take one by mouth daily MELATONIN 5 MG TABS 832346 MELATONIN Inactive MULTIVITAMINS TABS Take one by mouth daily MULTIVITAMINS TABS MULTIPLE VITAMIN Inactive LORTAB 5 5-500 MG TABS 1/2 to 1 tablet by mouth every 4 hours as needed for pain LORTAB 5 5-500 MG TABS HYDROCODONE- ACETAMINOPHEN Inactive XANAX 0.5 MG TABS 1 tablet every 6 hrs prn XANAX 0.5 MG TABS 647511 ALPRAZOLAM Inactive AUGMENTIN 875-125 MG TAB 1 tab by mouth twice daily with food AUGMENTIN 875-125 MG TAB 154322 AMOXICILLIN-POT CLAVULANATE Inactive ALPRAZOLAM 0.5 MG TABS 1 tab every 6hrs as needed ALPRAZOLAM 0.5 MG TABS 106821 ALPRAZOLAM Inactive SPIRONOLACTONE 25 MG TAB 0.5 tablet by mouth daily SPIRONOLACTONE 25 MG TAB 928287 SPIRONOLACTONE Inactive ACCU-CHEK KEYONA PLUS W/DEVICE KIT Use for testing bloodsugars three times daily as needed ACCU-CHEK KEYONA PLUS W/DEVICE KIT BLOOD GLUCOSE MONITORING SUPPL Inactive ACCU-CHEK KEYONA PLUS STRP Use for testing bloodsugars three times daily as needed ACCU-CHEK KEYONA PLUS STRP GLUCOSE BLOOD Inactive ACCU-CHEK FASTCLIX LANCETS MISC Use to check bloodsugar three times daily as needed ACCU-CHEK FASTCLIX LANCETS MISC 86308070883 LANCETS Inactive TRAMADOL HCL 50 MG TABS 1 tablets every 6 hours as needed for pain TRAMADOL HCL 50 MG TABS 685452 TRAMADOL HCL Inactive VENLAFAXINE HCL 75 MG TABS 1 po BID VENLAFAXINE HCL 75 MG TABS 053898 VENLAFAXINE HCL Inactive HYDROCODONE-ACETAMINOPHEN 5-500 MG TABS take one po Q 4-6 hours prn HYDROCODONE-ACETAMINOPHEN 5-500 MG TABS HYDROCODONE- ACETAMINOPHEN Inactive LORTAB 5 5-500 MG TABS 1/2 to 1 tablet by mouth every 4 hours as needed for pain LORTAB 5 5-500 MG TABS HYDROCODONE- ACETAMINOPHEN Inactive LAMISIL 250 MG TAB 1 po qd LAMISIL 250 MG TAB 456483 TERBINAFINE HCL Inactive VENLAFAXINE HCL 37.5 MG TABS 1 po BID VENLAFAXINE HCL 37.5 MG TABS 715606 VENLAFAXINE HCL Inactive CIPRO 500 MG TAB 1 tablet by mouth twice daily CIPRO 500 MG TAB 447819 CIPROFLOXACIN HCL Inactive VENLAFAXINE HCL 75 MG TABS 1 po BID VENLAFAXINE HCL 75 MG TABS 499437 VENLAFAXINE HCL Inactive SIMVASTATIN 40 MG TABS Take one by mouth daily SIMVASTATIN 40 MG TABS 700803 SIMVASTATIN Inactive OMEPRAZOLE 20 MG TBEC 1 PO 30 MIN BEFORE 1ST MEAL OMEPRAZOLE 20 MG TBEC 206542 OMEPRAZOLE Inactive FENOFIBRATE 145 MG TABS 1 po qd FENOFIBRATE 145 MG TABS 527966 FENOFIBRATE Inactive BACTRIM DS 800-160 MG TABS 1 bid x 14 day start 09-28-13 BACTRIM DS 800-160 MG TABS 154018 SULFAMETHOXAZOLE-TRIMETHOPRIM Inactive B-12 100 MCG TABS Take one by mouth daily B-12 100 MCG TABS CYANOCOBALAMIN Inactive GABAPENTIN 100 MG CAPS 1 po bid GABAPENTIN 100 MG CAPS 206343 GABAPENTIN Inactive HYDROCODONE-ACETAMINOPHEN 5-325 MG TABS 1 tab by mouth every 6 hours as needed for pain HYDROCODONE-ACETAMINOPHEN 5-325 MG TABS 176971 HYDROCODONE-ACETAMINOPHEN Inactive CIPRO 500 MG TABS 1 bid x 14 days start 09-28-13 CIPRO 500 MG TABS 943004 CIPROFLOXACIN HCL Inactive ALIGN 4 MG CAPS [...] as needed DICLOFENAC SODIUM 50 MG TBEC 848922 DICLOFENAC SODIUM Inactive PREDNISONE 20 MG TAB 2 tablets once daily for 2 days, then 1 tablet once daily for 2 days PREDNISONE 20 MG TAB 920246 PREDNISONE Inactive TRUEDRAW LANCING DEVICE MISC Test twice a day dx 250.0 TRUEDRAW LANCING DEVICE MISC LANCET DEVICES Inactive TRUERESULT BLOOD GLUCOSE W/DEVICE KIT test blood sugar twice daily dx 250.00 TRUERESULT BLOOD GLUCOSE W/DEVICE KIT BLOOD GLUCOSE MONITORING SUPPL Inactive FLONASE 50 MCG/ACT SUSP 1 spray each nostril twice daily until bottle empty FLONASE 50 MCG/ACT SUSP 438591 FLUTICASONE PROPIONATE Inactive VENTOLIN HFA 108 (90 BASE) MCG/ACT AERS 1-2 puffs every 4 hours if needed for cough/congestion VENTOLIN HFA 108 (90 BASE) MCG/ACT AERS ALBUTEROL SULFATE Inactive TRIAMCINOLONE ACETONIDE 0.1 % OINT Apply to affected areas TID for up to 2 weeks TRIAMCINOLONE ACETONIDE 0.1 % OINT 5607939 TRIAMCINOLONE ACETONIDE Inactive PREDNISONE 20 MG TAB 2 tabs daily for 3 days, 1 tab daily for 3 days, 1/2 tab daily for 2 days PREDNISONE 20 MG TAB 510990 PREDNISONE Inactive PREDNISONE 20 MG TAB 2 tabs daily for 3 days, 1 tab daily for 3 days, 1/2 tab daily for 2 days PREDNISONE 20 MG TAB 640727 PREDNISONE Inactive BACTRIM DS 800-160 MG TABS 1 po BID x 7 days BACTRIM DS 800-160 MG TABS 212111 SULFAMETHOXAZOLE-TRIMETHOPRIM Inactive ZITHROMAX 250 MG TAB 2 po today, then 1 po q days 2-5 ZITHROMAX 250 MG TAB 6916187 AZITHROMYCIN Inactive Advance Directives Directive Description Start Date DISCUSSED WITH PATIENT -- NO DECISION MADE Immunizations Vaccine Administration Date Value Standard Description Seasonal influenza vaccine, injectable, containing preservative, for > 3 years old (Afluria, FluLaval, Fluzone, Fluvirin, Fluarix, Agriflu(>=18 yo)) Fluzone (>3 yrs.) [[id number]] Influenza, seasonal, injectable influenza immunization (Flu Vax) has been administered 02/22/2012 influenza virus vaccine, unspecified formulation Seasonal influenza vaccine, injectable, containing preservative, for > 3 years old (Afluria, FluLaval, Fluzone, Fluvirin, Fluarix, Agriflu(>=18 yo)) Fluzone (>3 yrs.) [[id number]] Influenza, seasonal, injectable Vital Signs Date Name [...] MICROALBUMIN - Chemistry sodium, serum 142 mmol/L 676-561 1715/10/08 potassium, serum 4.5 mmol/L 3.5-5.2 chloride, serum [...] 0.30 mg/dL 0.00-1.00 cholesterol, serum 111 mg/dL 373-771 3453/07/28 triglyceride, serum, fasting 177 mg/dL 30-200 HDL [...] Panel - Chemistry cholesterol, serum 124 mg/dL 230-353 7314/01/12 triglyceride, serum, fasting 135 mg/dL 30-200 HDL cholesterol, serum 41 mg/dL 32-96 LDL cholesterol, serum 56 mg/dL 0-130 sodium, serum 140 mmol/L 198-252 4282/01/12 carbon dioxide, venous blood 27.7 mmol/L 21.0-32.0 potassium, serum 4.5 mmol/L 3.5-5.2 chloride, serum 104 mmol/L 98-107 blood glucose 139 mg/dL 65-110 urea nitrogen, blood 16 mg/dL 7-18 alanine aminotransferase (SGPT), serum 32 U/L -78 aspartate aminotransferase (SGOT), serum 25 U/L 15-37 calcium, serum 9.1 mg/dL 8.5-10.1 bilirubin, serum, total 0.50 mg/dL 0.00-1.00 Encounters Code Encounter Date Provider Facility CPT-90806 Level 4 Est. 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 Patient 14:05:18 BUILDING STONECUTTER Tu Landeros MD [facility] CPT-03224 Level 3 Est. Patient 10:06:54 BUILDING STONECUTTER Miranda Suresh APRN [facility] CPT-86776 Level 4 Est. Patient 13:50:18 BUILDING STONECUTTER Tu Landeros MD [facility] CPT-24728 Level 3 Est. Patient 10:30:04 CDT Tu Landeros MD [facility] CPT-83470 Level 4 Est. Patient 11:03:38 CDT Tu Landeros MD [facility] CPT-22445 Level 3 Est. Patient 10:20:44 CDT Fab Morales DO [facility] CPT-14338 Level 4 Est. Patient 14:38:57 CDT Tu Landeros MD [facility] CPT-35426 Level 4 Est. Patient 14:27:39 BUILDING STONECUTTER Tu Landeros MD [facility] CPT-38028 Level 4 Est. Patient 09:45:25 CDT Tu Landeros MD [facility] CPT-00491 Level 4 Est. Patient 09:05:20 BUILDING STONECUTTER Tu Landeros MD [facility] CPT-20927 Level 4 Est. Patient 14:09:06 CDT Tu Landeros MD [facility] CPT-49794 Level 3 Est. Patient 13:36:54 CDT Tu Landeros MD [facility] CPT-99992 Level 3 Est. Patient 08:59:14 CDT Tu Landeros MD [facility] CPT-46527 Level 3 Est. Patient 13:48:35 CDT Fab Morales DO [facility] CPT-29906 Level 4 Est. Patient 10:05:48 CDT Tu Landeros MD [facility] CPT-39094 Level 3 Est. Patient 13:38:42 CDT Marek BANKS [facility] CPT-71386 Level 5 Est. Patient 08:08:39 CDT Jerrica FRANCIS [facility] CPT-22025 Level 4 Est. Patient 14:23:38 CDT Tu Landeros MD [facility] CPT-22298 Level 3 Est. Patient 11:44:04 CDT Tu Landeros MD [facility] CPT-03611 Level 3 Est. Patient 11:03:20 BUILDING STONECUTTER Tu Landeros MD [facility] CPT-05267 Level 3 Est. Patient 11:03:14 BUILDING STONECUTTER Tu Landeros MD [facility] CPT-47390 Level 3 Est. Patient 12:42:49 CDT Tu Landeros MD [facility] CPT-19003 Level 3 Est. Patient 11:52:06 CDT Tu Landeros MD [facility] CPT-38647 Level 3 Est. Patient 13:58:11 CDT Tu Landeros MD [facility] CPT-88143 Level 3 Est. Patient 17:50:07 CDT Fab Morales DO [facility] CPT-72849 Level 3 Est. Patient 12:06:29 CDT Elvira Cervantes MD, PhD [facility] CPT-69991 Level 3 Est. Patient 15:50:32 CDT Tu Landeros MD [facility] CPT-67523 Level 4 Est. Patient 16:08:29 CDT Tu Landeros MD [facility] CPT-82483 Level 3 Est. Patient 16:04:19 CDT Tu Landeros MD [facility] CPT-47510 Level 3 Est. Patient 11:22:30 BUILDING STONECUTTER Tu Landeros MD [facility] CPT-66768 Level 4 Est. Patient 16:24:02 BUILDING STONECUTTER Tu Landeros MD [facility] CPT-66301 Level 3 Est. Patient 17:21:23 BUILDING STONECUTTER Tu Landeros MD [facility] Procedures Code Procedure Name Date Entry Date Standard Description CPT-G0438 Initial Annual Wellness Exam 14:13:04 CDT CPT-92942 Breathing Tx 10:06:54 BUILDING [employer]ONECUT[employer] CPT-87237 Postop F/U Visit 10:02:45 CDT CPT-LR Lesion Removal 09:02:56 CDT CPT-JTINJ Asp/Joint Injection 15:51:27 BUILDING [employer]ONEC[employer] CPT-OV Office Visit 15:52:02 BUILDING STONECUTTER CPT-OV Office Visit 15:45:11 CDT CPT-000 Give Zostavax 14:09:06 CDT CPT-74702 Administration single or combination vaccine inc oral 15 :19:04 CDT CPT-05016 Zoster Vaccine (Zostavax) 15:19:04 CDT CPT-37888 Administration single or combination vaccine inc oral 20 :51:03 CDT CPT-12708 Influenza split virus > age 3 20:51:03 CDT CPT-85563 No Charge Offi Visit 14:52:03 CDT CPT-OV Office Visit 14:57:43 CDT CPT-OV Office Visit 15:22:32 CDT CPT-61263 Administration single or combination vaccine inc oral 11 :33:15 CDT CPT-89725 Influenza split virus > age 3 11:33:15 CDT
--- OUTSIDE RECORDS SUMMARY | 2018-04-25 18:42 | XMS REPORT | Clinical Summary ---
Author Author Admin, SACHI Organization [email or web address] Address Unknown Phone Unavailable Allergies, Adverse Reactions, [...] Ear pain, bilateral ICD-388.70 Tessa Landeros MD Upper respiratory infection, viral ICD-465.9 Inactive Shaun Sy MD Hot flashes ICD-627.2 Inactive Tu Landeros MD Upper respiratory infection, viral ICD-465.9 Inactive Tu Landeros MD Sinusitis - acute ICD-461.9 Tessa Landeros MD Leg pain, left ICD-729.5 Tessa Landeros MD Sebaceous cyst ICD-706.2 Tessa Landeros MD Pain in unspecified foot ICD-729.5 Tessa Landeros MD Shoulder pain, right ICD-719.41 Tessa Landeros MD Vision impairment, both eyes, impairment level not further specified ICD- 369.20 Tessa Landeros MD Medication List Medication Instructions Start Date Stop Date Generic Name NDC Status Provider Patient Instruction DICLOFENAC SODIUM 75 MG ORAL TBEC 1 po BID PRN Pain DICLOFENAC SODIUM 16696222270 Active Tu Landeros MD Active GABAPENTIN 100 MG CAPS 1 po TID GABAPENTIN 64480999755 Active Tu Landeros MD Active DICLOFENAC SODIUM 50 MG ORAL TBEC 1 po BID PRN Pain DICLOFENAC SODIUM 83701781423 No Longer Active Tu Landeros MD Active CYCLOBENZAPRINE HCL 10 MG ORAL TABS 1 po TID PRN Muscle Spasm CYCLOBENZAPRINE HCL 54198446689 No Longer Active Tu Landeros MD Active INVOKANA 100 MG ORAL TABS 1 po qd CANAGLIFLOZIN 76817183742 Active Tu Landeros MD Active GLIPIZIDE 5 MG ORAL TABS 1 po qd GLIPIZIDE 81902803924 No Longer Active Tu Landeros MD Active VENLAFAXINE HCL 75 MG ORAL TABS 1 po BID VENLAFAXINE HCL 66208067953 Active Tu Landeros MD Active GLIMEPIRIDE 1 MG ORAL TABS 1 po qd GLIMEPIRIDE 84405203691 No Longer Active Tu Landeros MD Active TRUE METRIX BLOOD GLUCOSE TEST INVITR STRP Test blood sugar BID Dx: E11.9 GLUCOSE BLOOD 80849331587 Active Tu Landeros MD Active TRUE METRIX AIR GLUCOSE METER W/DEVICE KIT Test blood glucose BID Dx: E11.9 BLOOD GLUCOSE MONITORING SUPPL 47310561240 Active Tu Landeros MD Active TRUETEST TEST INVITR STRP test blood sugar twice daily. DX 250.0 GLUCOSE BLOOD 13494338260 No Longer Active Mirna Stanley LPN Active TRUEDRAW LANCING DEVICE MISC test blood sugar twice daily dx: 250.00 LANCET DEVICES 98891665145 No Longer Active Mirna Stanley LPN Active ENALAPRIL MALEATE 20 MG TABS 2 po qd ENALAPRIL MALEATE 47869553266 Active Lesli Kellogg APRN Active SUPER B COMPLEX/VITAMIN C TABS 1 qd B COMPLEX-C 33772046063 No Longer Active Tu Landeros MD Active ASPIRIN EC 81 MG ORAL TBEC 1 po qd ASPIRIN 65761555498 Active Tu Landeros MD Active GLUCOSAMINE 500 MG TABS 2 po qd GLUCOSAMINE Active Tu Landeros MD Active SIMVASTATIN 40 MG TABS 0.5 po qHS SIMVASTATIN 85681242685 Active Tu Landeros MD Active FISH OIL 1000 MG CAPS 1 po qd OMEGA-3 FATTY ACIDS 03896080353 Active Tu Landeros MD Active METFORMIN HCL 1000 MG TABS 1 po BID METFORMIN HCL 24025150130 Active Tu Landeros MD Active KLOR-CON 10 10 MEQ CR-TABS 2 po qd POTASSIUM CHLORIDE 22501115373 Active Tu Landeros MD Active FUROSEMIDE 40 MG TAB 1 po qd FUROSEMIDE 33989832112 Active Tu Landeros MD Active REQUIP 2 MG ORAL TABS 1 po qHS PRN Restless legs ROPINIROLE HCL 61422099854 Active Tu Landeros MD Active REQUIP 2 MG TABS Take one tablet at bedtime prn ROPINIROLE HCL 27851365327 No Longer Active Tu Landeros MD Active VENTOLIN HFA 108 (90 BASE) MCG/ACT AERS 1-2 puffs every 4 hours if needed for cough/congestion ALBUTEROL SULFATE 91542721850 No Longer Active Ambika Aden APRN Active ZITHROMAX 250 MG TAB 2 po today, then 1 po q days 2-5 AZITHROMYCIN 65713447338 No Longer Active Miranda Suresh APRN Active FLONASE 50 MCG/ACT SUSP 1 spray each nostril twice daily until bottle empty FLUTICASONE PROPIONATE 74031805316 No Longer Active Tu Landeros MD Active COLACE 100 MG CAP 1 po BID PRN Constipation DOCUSATE SODIUM 24650799996 Active Tu Landeros MD Active TRUERESULT BLOOD GLUCOSE W/DEVICE KIT test blood sugar twice daily dx 250.00 BLOOD GLUCOSE MONITORING SUPPL 40516640852 No Longer Active Tu Landeros MD Active TRUEDRAW LANCING DEVICE MISC Test twice a day dx 250.0 LANCET DEVICES 12626042128 No Longer Active Tu Landeros MD Active PREDNISONE 20 MG TAB 2 tablets once daily for 2 days, then 1 tablet once daily for 2 days PREDNISONE 52759679446 No Longer Active Tu Landeros MD Active DICLOFENAC SODIUM 50 MG TBEC 1 tablet by mouth three times a day as needed DICLOFENAC SODIUM 68749657124 No Longer Active Fab Morales DO Active EMBRACE BLOOD GLUCOSE TEST STRP test blood sugar twice daily DX 250.0 2014 GLUCOSE BLOOD 14756148425 No Longer Active Tu Landeros MD Active TRUETEST TEST STRP test blood sugar three times daily dx: 250.00 GLUCOSE BLOOD 86602414266 No Longer Active Suze Nicole RMMahendra Active TRUERESULT BLOOD GLUCOSE W/DEVICE KIT use to test blood sugar tid dx: 250.00 BLOOD GLUCOSE MONITORING SUPPL 27087370113 No Longer Active Suze Corey RMA Active ALIGN 4 MG CAPS 1 tid PROBIOTIC PRODUCT 47889770928 No Longer Active Shaun Sy MD Active CIPRO 500 MG TABS 1 bid x 14 days start 09-28-13 CIPROFLOXACIN HCL 23126548485 No Longer Active Shaun Sy MD Active TRAMADOL HCL 50 MG TABS 1-2 tablets every 6 hours as needed for pain TRAMADOL HCL 78345214428 Active Tu Landeros MD Active HYDROCODONE-ACETAMINOPHEN 5-325 MG TABS 1 tab by mouth every 6 hours as needed for pain HYDROCODONE-ACETAMINOPHEN 13340732739 No Longer Active Tu Landeros MD Active OMEPRAZOLE 20 MG CPDR 1 po q a.m. OMEPRAZOLE 94743940069 Active Fab Morales DO Active GABAPENTIN 100 MG CAPS 1 po bid GABAPENTIN 87266104776 No Longer Active Tu Landeros MD Active B-12 100 MCG TABS Take one by mouth daily CYANOCOBALAMIN 80888636654 No Longer Active Tu Landeros MD Active BACTRIM DS 800-160 MG TABS 1 bid x 14 day start 09-28-13 SULFAMETHOXAZOLE-TRIMETHOPRIM 23615922125 No Longer Active Tu Landeros MD Active CARVEDILOL 12.5 MG TABS 1 po BID CARVEDILOL 06574664475 Active Lesli Kellogg APRN Active TRILIPIX 135 MG CPDR 1 q hs CHOLINE FENOFIBRATE 68879939999 Active Tu Landeros MD Active FENOFIBRATE 145 MG TABS 1 po qd FENOFIBRATE 08645323666 No Longer Active JASPREET Perez Active OMEPRAZOLE 20 MG TBEC 1 PO 30 MIN BEFORE 1ST MEAL OMEPRAZOLE 92546499342 No Longer Active JASPREET Perez Active SIMVASTATIN 40 MG TABS Take one by mouth daily SIMVASTATIN 81011839378 No Longer Active JASPREET Perez Active VENLAFAXINE HCL 75 MG TABS 1 po BID VENLAFAXINE HCL 51405313925 No Longer Active JASPREET Perez Active CIPRO 500 MG TAB 1 tablet by mouth twice daily CIPROFLOXACIN HCL 18540097078 No Longer Active Tu Landeros MD Active VENLAFAXINE HCL 37.5 MG TABS 1 po BID VENLAFAXINE HCL 36461311500 No Longer Active Suzebianca Nicole RMA Active LAMISIL 250 MG TAB 1 po qd TERBINAFINE HCL 55918987976 No Longer Active Tu Landeros MD Active LORTAB 5 5-500 MG TABS 1/2 to 1 tablet by mouth every 4 hours as needed for pain HYDROCODONE-ACETAMINOPHEN 80379914154 No Longer Active Tu Landeros MD Active HYDROCODONE-ACETAMINOPHEN 5-500 MG TABS take one po Q 4-6 hours prn HYDROCODONE-ACETAMINOPHEN 95710416878 No Longer Active Tu Landeros MD Active BACTRIM DS 800-160 MG TABS 1 po BID x 7 days SULFAMETHOXAZOLE-TRIMETHOPRIM 06787989867 No Longer Active Tu Landeros MD Active VENLAFAXINE HCL 75 MG TABS 1 po BID VENLAFAXINE HCL 14726802282 No Longer Active Elvira Cervantes MD PhD Active TRAMADOL HCL 50 MG TABS 1 tablets every 6 hours as needed for pain TRAMADOL HCL 76322738768 No Longer Active Tu Landeros MD Active ACCU-CHEK FASTCLIX LANCETS MISC Use to check bloodsugar three times daily as needed LANCETS 49222022417 No Longer Active Tu Landeros MD Active ACCU-CHEK KEYONA PLUS STRP Use for testing bloodsugars three times daily as needed GLUCOSE BLOOD 42029235561 No Longer Active Tu Landeros MD Active ACCU-CHEK KEYONA PLUS W/DEVICE KIT Use for testing bloodsugars three times daily as needed BLOOD GLUCOSE MONITORING SUPPL 84815664784 No Longer Active Tu Landeros MD Active SPIRONOLACTONE 25 MG TAB 0.5 tablet by mouth daily SPIRONOLACTONE 13034858586 No Longer Active Tu Landeros MD Active ALPRAZOLAM 0.5 MG TABS 1 tab every 6hrs as needed ALPRAZOLAM 26930368010 No Longer Active Tu Landeros MD Active AUGMENTIN 875-125 MG TAB 1 tab by mouth twice daily with food AMOXICILLIN-POT CLAVULANATE 30903890241 No Longer Active Tu Landeros MD Active PREDNISONE 20 MG TAB 2 tabs daily for 3 days, 1 tab daily for 3 days, 1/2 tab daily for 2 days PREDNISONE 18698836615 No Longer Active Tu Landeros MD Active XANAX 0.5 MG TABS 1 tablet every 6 hrs prn ALPRAZOLAM 54365126050 No Longer Active Tu Landeros MD Active PREDNISONE 20 MG TAB 2 tabs daily for 3 days, 1 tab daily for 3 days, 1/2 tab daily for 2 days PREDNISONE 37895768036 No Longer Active Tu Landeros MD Active TRIAMCINOLONE ACETONIDE 0.1 % OINT Apply to affected areas TID for up to 2 weeks TRIAMCINOLONE ACETONIDE 08339807831 No Longer Active Tu Landeros MD Active LORTAB 5 5-500 MG TABS 1/2 to 1 tablet by mouth every 4 hours as needed for pain HYDROCODONE-ACETAMINOPHEN 04149307493 No Longer Active Tu Landeros MD Active MULTIVITAMINS TABS Take one by mouth daily MULTIPLE VITAMIN 39684883727 No Longer Active Tu Landeros MD Active MELATONIN 5 MG TABS Take one by mouth daily MELATONIN 55766687433 No Longer Active Tu Landeros MD Active SOMA 350 MG TAB 1 po q 6 hours prn spasm CARISOPRODOL 90505349146 No Longer Active Tu Landeros MD Active MECLIZINE HCL 25 MG CHEW TAB 1 four times a day as needed for dizziness 08/05 MECLIZINE HCL 55771978247 No Longer Active Fab Morales DO Active ANGEL BREEZE 2 TEST DISK test tid prn GLUCOSE BLOOD 57669776022 No Longer Active Negra Scott RN Active REGLAN 10 MG TAB 1 po TID PRN Nausea METOCLOPRAMIDE HCL 44133018870 No Longer Active Tu Landeros MD Active METFORMIN HCL 500 MG TABS 1 PO BID METFORMIN HCL 26153487137 No Longer Active Tu Landeros MD Active AMBIEN 10 MG TAB 1 tab by mouth at bedtime as needed for sleep ZOLPIDEM TARTRATE 00432992712 No Longer Active Tu Landeros MD Active FLUOXETINE HCL 40 MG CAPS 1 po q day FLUOXETINE HCL 64320358189 No Longer Active Mayra Terry Active TRILIPIX 135 MG CPDR 1 po qd CHOLINE FENOFIBRATE 71041300087 No Longer Active Tu Landeros MD Active AMBIEN 10 MG TAB 1 tab by mouth at bedtime as needed for sleep AMBIEN 10 MG TAB 559379 ZOLPIDEM TARTRATE Inactive METFORMIN HCL 500 MG TABS 1 PO BID METFORMIN HCL 500 MG TABS 248462 METFORMIN HCL Inactive REGLAN 10 MG TAB 1 po TID PRN Nausea REGLAN 10 MG TAB 721753 METOCLOPRAMIDE HCL Inactive MECLIZINE HCL 25 MG CHEW TAB 1 four times a day as needed for dizziness 08/05 MECLIZINE HCL 25 MG CHEW TAB 310054 MECLIZINE HCL Inactive SOMA 350 MG TAB 1 po q 6 hours prn spasm SOMA 350 MG TAB 372611 CARISOPRODOL Inactive MELATONIN 5 MG TABS Take one by mouth daily MELATONIN 5 MG TABS 371248 MELATONIN Inactive MULTIVITAMINS TABS Take one by mouth daily MULTIVITAMINS TABS MULTIPLE VITAMIN Inactive LORTAB 5 5-500 MG TABS 1/2 to 1 tablet by mouth every 4 hours as needed for pain LORTAB 5 5-500 MG TABS 560952 HYDROCODONE- ACETAMINOPHEN Inactive XANAX 0.5 MG TABS 1 tablet every 6 hrs prn XANAX 0.5 MG TABS 901176 ALPRAZOLAM Inactive AUGMENTIN 875-125 MG TAB 1 tab by mouth twice daily with food AUGMENTIN 875-125 MG TAB 648943 AMOXICILLIN-POT CLAVULANATE Inactive ALPRAZOLAM 0.5 MG TABS 1 tab every 6hrs as needed ALPRAZOLAM 0.5 MG TABS 778265 ALPRAZOLAM Inactive SPIRONOLACTONE 25 MG TAB 0.5 tablet by mouth daily SPIRONOLACTONE 25 MG TAB 323993 SPIRONOLACTONE Inactive ACCU-CHEK KEYONA PLUS W/DEVICE KIT Use for testing bloodsugars three times daily as needed ACCU-CHEK KEYONA PLUS W/DEVICE KIT BLOOD GLUCOSE MONITORING SUPPL Inactive ACCU-CHEK KEYONA PLUS STRP Use for testing bloodsugars three times daily as needed ACCU-CHEK KEYONA PLUS STRP GLUCOSE BLOOD Inactive ACCU-CHEK FASTCLIX LANCETS MISC Use to check bloodsugar three times daily as needed ACCU-CHEK FASTCLIX LANCETS MISC 41024673338 LANCETS Inactive TRAMADOL HCL 50 MG TABS 1 tablets every 6 hours as needed for pain TRAMADOL HCL 50 MG TABS 492719 TRAMADOL HCL Inactive VENLAFAXINE HCL 75 MG TABS 1 po BID VENLAFAXINE HCL 75 MG TABS 314577 VENLAFAXINE HCL Inactive HYDROCODONE-ACETAMINOPHEN 5-500 MG TABS take one po Q 4-6 hours prn HYDROCODONE-ACETAMINOPHEN 5-500 MG TABS 505672 HYDROCODONE- ACETAMINOPHEN Inactive LORTAB 5 5-500 MG TABS 1/2 to 1 tablet by mouth every 4 hours as needed for pain LORTAB 5 5-500 MG TABS 827812 HYDROCODONE- ACETAMINOPHEN Inactive LAMISIL 250 MG TAB 1 po qd LAMISIL 250 MG TAB 839672 TERBINAFINE HCL Inactive VENLAFAXINE HCL 37.5 MG TABS 1 po BID VENLAFAXINE HCL 37.5 MG TABS 660490 VENLAFAXINE HCL Inactive CIPRO 500 MG TAB 1 tablet by mouth twice daily CIPRO 500 MG TAB 622710 CIPROFLOXACIN HCL Inactive VENLAFAXINE HCL 75 MG TABS 1 po BID VENLAFAXINE HCL 75 MG TABS 233635 VENLAFAXINE HCL Inactive SIMVASTATIN 40 MG TABS Take one by mouth daily SIMVASTATIN 40 MG TABS 010944 SIMVASTATIN Inactive OMEPRAZOLE 20 MG TBEC 1 PO 30 MIN BEFORE 1ST MEAL OMEPRAZOLE 20 MG TBEC 925824 OMEPRAZOLE Inactive FENOFIBRATE 145 MG TABS 1 po qd FENOFIBRATE 145 MG TABS 381042 FENOFIBRATE Inactive BACTRIM DS 800-160 MG TABS 1 bid x 14 day start 09-28-13 BACTRIM DS 800-160 MG TABS 061621 SULFAMETHOXAZOLE-TRIMETHOPRIM Inactive B-12 100 MCG TABS Take one by mouth daily B-12 100 MCG TABS CYANOCOBALAMIN Inactive GABAPENTIN 100 MG CAPS 1 po bid GABAPENTIN 100 MG CAPS 946547 GABAPENTIN Inactive HYDROCODONE-ACETAMINOPHEN 5-325 MG TABS 1 tab by mouth every 6 hours as needed for pain HYDROCODONE-ACETAMINOPHEN 5-325 MG TABS 555509 HYDROCODONE-ACETAMINOPHEN Inactive CIPRO 500 MG TABS 1 bid x 14 days start 09-28-13 CIPRO 500 MG TABS 028258 CIPROFLOXACIN HCL Inactive ALIGN 4 MG CAPS [...] as needed DICLOFENAC SODIUM 50 MG TBEC 450374 DICLOFENAC SODIUM Inactive PREDNISONE 20 MG TAB 2 tablets once daily for 2 days, then 1 tablet once daily for 2 days PREDNISONE 20 MG TAB 817041 PREDNISONE Inactive TRUEDRAW LANCING DEVICE MISC Test twice a day dx 250.0 TRUEDRAW LANCING DEVICE MISC LANCET DEVICES Inactive TRUERESULT BLOOD GLUCOSE W/DEVICE KIT test blood sugar twice daily dx 250.00 TRUERESULT BLOOD GLUCOSE W/DEVICE KIT BLOOD GLUCOSE MONITORING SUPPL Inactive FLONASE 50 MCG/ACT SUSP 1 spray each nostril twice daily until bottle empty FLONASE 50 MCG/ACT SUSP 1504433 FLUTICASONE PROPIONATE Inactive VENTOLIN HFA 108 (90 BASE) MCG/ACT AERS 1-2 puffs every 4 hours if needed for cough/congestion VENTOLIN HFA 108 (90 BASE) MCG/ACT AERS ALBUTEROL SULFATE Inactive REQUIP 2 MG TABS Take one tablet at bedtime prn REQUIP 2 MG TABS 006343 ROPINIROLE HCL Inactive SUPER B COMPLEX/VITAMIN C TABS 1 qd SUPER B COMPLEX/ VITAMIN C TABS 77300488368 B COMPLEX-C Inactive TRUEDRAW LANCING DEVICE MISC test blood sugar twice daily dx: 250.00 TRUEDRAW LANCING DEVICE MISC LANCET DEVICES Inactive TRUETEST TEST INVITR STRP test blood sugar twice daily. DX 250.0 TRUETEST TEST INVITR STRP GLUCOSE BLOOD Inactive CYCLOBENZAPRINE HCL 10 MG ORAL TABS 1 po TID PRN Muscle Spasm CYCLOBENZAPRINE HCL 10 MG ORAL TABS 568270 CYCLOBENZAPRINE HCL Inactive DICLOFENAC SODIUM 50 MG ORAL TBEC 1 po BID PRN Pain DICLOFENAC SODIUM 50 MG ORAL TBEC 447219 DICLOFENAC SODIUM Inactive TRIAMCINOLONE ACETONIDE 0.1 % OINT Apply to affected areas TID for up to 2 weeks TRIAMCINOLONE ACETONIDE 0.1 % OINT 4040037 TRIAMCINOLONE ACETONIDE Inactive PREDNISONE 20 MG TAB 2 tabs daily for 3 days, 1 tab daily for 3 days, 1/2 tab daily for 2 days PREDNISONE 20 MG TAB 010722 PREDNISONE Inactive PREDNISONE 20 MG TAB 2 tabs daily for 3 days, 1 tab daily for 3 days, 1/2 tab daily for 2 days PREDNISONE 20 MG TAB 875172 PREDNISONE Inactive BACTRIM DS 800-160 MG TABS 1 po BID x 7 days BACTRIM DS 800-160 MG TABS 492867 SULFAMETHOXAZOLE-TRIMETHOPRIM Inactive ZITHROMAX 250 MG TAB 2 po today, then 1 po q days 2-5 ZITHROMAX 250 MG TAB 146875 AZITHROMYCIN Inactive Advance Directives Directive Description Start Date DISCUSSED WITH PATIENT -- NO DECISION MADE Immunizations Vaccine Administration Date Value Standard Description Seasonal influenza vaccine, injectable, containing preservative, for > 3 years old (Afluria, FluLaval, Fluzone, Fluvirin, Fluarix, Agriflu(>=18 yo)) Fluzone (>3 yrs.) [[id number]] Influenza, seasonal, injectable influenza immunization (Flu Vax) has been administered 02/22/2012 influenza virus vaccine, unspecified formulation Seasonal influenza vaccine, injectable, containing preservative, for > 3 years old (Afluria, FluLaval, Fluzone, Fluvirin, Fluarix, Agriflu(>=18 yo)) Fluzone (>3 yrs.) [[id number]] Influenza, seasonal, injectable Vital Signs Date Name [...] Magnesium - Chemistry sodium, serum 143 mmol/L 114-010 5968/01/10 carbon dioxide, venous blood 28.0 mmol/L 21.0-32.0 potassium, serum 4.5 mmol/L 3.5-5.2 chloride, serum 104 mmol/L 98-107 blood glucose 158 mg/dL 65-110 urea nitrogen, blood 23 mg/dL 7-18 creatinine, serum 1.06 mg/dL 0.55-1.30 alanine aminotransferase (SGPT), serum 42 U/L 12-78 aspartate aminotransferase (SGOT), serum 32 U/L 15-37 calcium, serum 9.3 mg/dL 8.5-10.1 bilirubin, serum, total 0.20 mg/dL 0.00-1.00 cholesterol, serum 177 mg/dL 298-027 3940/01/10 triglyceride, serum, fasting 320 mg/dL 30-200 HDL cholesterol, serum 46 mg/dL 32-96 LDL cholesterol, serum 67 mg/dL 0-130 Lab Report: COMPREHENSIVE METABOLIC PANEL, LIPID PANEL, HEMOGLOBIN A1c - Chemistry cholesterol, serum 135 mg/dL 232-453 1933/05/17 HDL cholesterol, serum 41 mg/dL > OR=46 [...] <30 Encounters Code Encounter Date Provider Facility CPT-25749 Level 3 Est. Patient 14:20:36 CDT Tu Landeros MD [facility] CPT-78516 Level 4 Est. Patient 14:28:34 CDT Tu Landeros MD [facility] CPT-34213 Level 3 Est. Patient 13:33:09 CDT Tu Landeros MD [facility] CPT-32946 Level 4 Est. Patient 14:29:21 CDT Tu Landeros MD [facility] CPT-20379 Level 4 Est. Patient 09:08:17 VETERINARY MANAGER Tu Landeros MD [facility] CPT-03606 Level 4 Est. Patient 14:40:19 CDT Tu Landeros MD [facility] CPT-19538 Level 4 Est. Patient 14:06:04 VETERINARY MANAGER Tu Landeros MD [facility] CPT-09136 Level 3 Est. Patient 14:05:18 VETERINARY MANAGER Tu Landeros MD [facility] CPT-46903 Level 3 Est. Patient 10:06:54 VETERINARY MANAGER Miranda Suresh APRN [facility] CPT-72639 Level 4 Est. Patient 13:50:18 VETERINARY MANAGER [facility] CPT-67663 Level 3 Est. Patient 10:30:04 CDT Tu Landeros MD [facility] CPT-34307 Level 4 Est. Patient 11:03:38 CDT Tu Landeros MD [facility] CPT-24703 Level 3 Est. Patient 10:20:44 CDT Fab Morales DO [facility] CPT-24856 Level 4 Est. Patient 14:38:57 CDT Tu Landeros MD [facility] CPT-36193 Level 4 Est. Patient 14:27:39 VETERINARY MANAGER Tu Landeros MD [facility] CPT-91391 Level 4 Est. Patient 09:45:25 CDT Tu Landeros MD [facility] CPT-64253 Level 4 Est. Patient 09:05:20 VETERINARY MANAGER Tu Landeros MD [facility] CPT-16797 Level 4 Est. Patient 14:09:06 CDT Tu Landeros MD [facility] CPT-57390 Level 3 Est. Patient 13:36:54 CDT Tu Landeros MD [facility] CPT-02107 Level 3 Est. Patient 08:59:14 CDT Tu Landeros MD [facility] CPT-37441 Level 3 Est. Patient 13:48:35 CDT Fab Morales DO [facility] CPT-37999 Level 4 Est. Patient 10:05:48 CDT Tu Landeros MD [facility] CPT-77060 Level 3 Est. Patient 13:38:42 CDT Marek BANKS [facility] CPT-24702 Level 5 Est. Patient 08:08:39 CDT Jerrica FRANCIS [facility] CPT-79140 Level 4 Est. Patient 14:23:38 CDT Tu Landeros MD [facility] CPT-78218 Level 3 Est. Patient 11:44:04 CDT Tu Landeros MD [facility] CPT-34272 Level 3 Est. Patient 11:03:20 VETERINARY MANAGER Tu Landeros MD [facility] CPT-26952 Level 3 Est. Patient 11:03:14 VETERINARY MANAGER Tu Landeros MD [facility] CPT-11595 Level 3 Est. Patient 12:42:49 CDT Tu Landeros MD [facility] CPT-13896 Level 3 Est. Patient 11:52:06 CDT Tu Landeros MD [facility] CPT-12386 Level 3 Est. Patient 13:58:11 CDT Tu Landeros MD [facility] CPT-71625 Level 3 Est. Patient 17:50:07 CDT Fab Morales DO [facility] CPT-24109 Level 3 Est. Patient 12:06:29 CDT Elvira Cervantes MD, PhD [facility] CPT-71806 Level 3 Est. Patient 15:50:32 CDT Tu Landeros MD [facility] CPT-39466 Level 4 Est. Patient 16:08:29 CDT Tu Landeros MD [facility] CPT-02147 Level 3 Est. Patient 16:04:19 CDT Tu Landeros MD [facility] CPT-73126 Level 3 Est. Patient 11:22:30 VETERINARY MANAGER Tu Landeros MD [facility] CPT-80136 Level 4 Est. Patient 16:24:02 VETERINARY MANAGER Tu Landeros MD [facility] CPT-79529 Level 3 Est. Patient 17:21:23 VETERINARY MANAGER Tu Landeros MD [facility] Procedures Code Procedure Name Date Entry Date Standard Description CPT-24498 Shoulder, right, comp min 2V - XRAY USE ONLY 13:50:22 CDT CPT-G0009 Administration of Pneumococcal Vaccine 15:08:26 CDT CPT-75270 Prevnar 13 Intramuscular Suspension 15:08:26 CDT 10/08 CPT-G0439 Subsequent Annual Wellness Exam 14:29:22 CDT CPT-45052 Venipuncture Draw Fee 13:15:35 CDT CPT-16110 Magnesium - LAB USE ONLY 11:14:20 VETERINARY MANAGER CPT-95257 Lipid - LAB USE ONLY 11:14:20 VETERINARY MANAGER CPT-26681 HGBA1C - LAB USE ONLY 11:14:20 VETERINARY MANAGER CPT-01080 CMP - LAB USE ONLY 11:14:19 VETERINARY MANAGER CPT-18195 CBC - LAB USE ONLY 11:14:19 VETERINARY MANAGER CPT-68098 Venipuncture Draw Fee 11:14:18 VETERINARY MANAGER CPT-21937 First Vx - Ix admin for Medicare patients 16:46:52 CDT CPT-66677 Fluzone Preservative Free Intramuscular Suspension 16:46 :51 CDT CPT-85497 CBC - LAB USE ONLY 17:14:46 CDT CPT-19031 HGBA1C - LAB USE ONLY 17:14:46 CDT CPT-46924 Venipuncture Draw Fee 17:14:46 CDT CPT-G0438 Initial Annual Wellness Exam 14:13:04 CDT CPT-81064 Breathing Tx 10:06:54 VETERINARY MANAGER CPT-87913 Postop F/U Visit 10:02:45 CDT CPT-LR Lesion Removal 09:02:56 CDT CPT-JTINJ Asp/Joint Injection 15:51:27 VETERINARY MANAGER CPT-OV Office Visit 15:52:02 VETERINARY MANAGER CPT-OV Office Visit 15:45:11 CDT CPT-000 Give Zostavax 14:09:06 CDT CPT-24843 Administration single or combination vaccine inc oral 15 :19:04 CDT CPT-44858 Zoster Vaccine (Zostavax) 15:19:04 CDT CPT-48798 Administration single or combination vaccine inc oral 20 :51:03 CDT CPT-19044 Influenza split virus > age 3 20:51:03 CDT CPT-66585 No Charge Offi Visit 14:52:03 CDT CPT-OV Office Visit 14:57:43 CDT CPT-OV Office Visit 15:22:32 CDT CPT-36606 Administration single or combination vaccine inc oral 11 :33:15 CDT CPT-93105 Influenza split virus > age 3 11:33:15 CDT
--- OUTSIDE RECORDS SUMMARY | 2018-04-25 18:44 | XMS REPORT | Clinical Summary ---
Author Author Admin, SACHI Organization [employer] Address Unknown Phone Unavailable Allergies, Adverse [...] not further specified 369.20 Active Ambika Markie [employer] Moderate or severe vision impairment, both eyes, [...] hours if needed for cough/congestion ALBUTEROL SULFATE 05168336926 No Longer Active Ambika Aden APRN Active ZITHROMAX 250 MG TAB 2 po today, then 1 po q days 2-5 AZITHROMYCIN 82632002333 No Longer Active Miranda Suresh APRN Active METFORMIN HCL 1000 MG TABS 1 tablet by mouth twice daily METFORMIN HCL 64043231493 Active Tu Landeros MD Active FLONASE 50 MCG/ACT SUSP 1 spray each nostril twice daily until bottle empty FLUTICASONE PROPIONATE 93299339329 No Longer Active Tu Landeros MD Active COLACE 100 MG CAP 1 po BID PRN Constipation DOCUSATE SODIUM 92308890246 Active Tu Landeros MD Active SIMVASTATIN 40 MG TABS 0.5 tab daily at bedtime SIMVASTATIN 64615567426 Active Tu Landeros MD Active TRUERESULT BLOOD GLUCOSE W/DEVICE KIT test blood sugar twice daily dx 250.00 BLOOD GLUCOSE MONITORING SUPPL 00972857959 No Longer Active Tu Landeros MD Active TRUEDRAW LANCING DEVICE MISC Test twice a day dx 250.0 LANCET DEVICES 20914125552 No Longer Active Tu Landeros MD Active PREDNISONE 20 MG TAB 2 tablets once daily for 2 days, then 1 tablet once daily for 2 days PREDNISONE 06313148730 No Longer Active Tu Landeros MD Active DICLOFENAC SODIUM 50 MG TBEC 1 tablet by mouth three times a day as needed DICLOFENAC SODIUM 58495230276 No Longer Active Fab Morales DO Active TRUEDRAW LANCING DEVICE MISC test blood sugar twice daily dx: 250.00 LANCET DEVICES 99106795881 Active Tu Landeros MD Active TRUETEST TEST INVITR STRP test blood sugar twice daily. DX 250.0 GLUCOSE BLOOD 85940649249 Active Tu Landeros MD Active EMBRACE BLOOD GLUCOSE TEST STRP test blood sugar twice daily DX 250.0 2014 GLUCOSE BLOOD 51429556074 No Longer Active Tu Landeros MD Active TRUETEST TEST STRP test blood sugar three times daily dx: 250.00 GLUCOSE BLOOD 86621893619 No Longer Active Suzebianca VOGEL Active TRUERESULT BLOOD GLUCOSE W/DEVICE KIT use to test blood sugar tid dx: 250.00 BLOOD GLUCOSE MONITORING SUPPL 29024413753 No Longer Active Suze Corey RMA Active ALIGN 4 MG CAPS 1 tid PROBIOTIC PRODUCT 99250472951 No Longer Active Shaun Sy MD Active CIPRO 500 MG TABS 1 bid x 14 days start 09-28-13 CIPROFLOXACIN HCL 31596426744 No Longer Active Shaun Sy MD Active TRAMADOL HCL 50 MG TABS 1-2 tablets every 6 hours as needed for pain TRAMADOL HCL 76475997875 Active Tu Landeros MD Active HYDROCODONE-ACETAMINOPHEN 5-325 MG TABS 1 tab by mouth every 6 hours as needed for pain HYDROCODONE-ACETAMINOPHEN 16678157458 No Longer Active Tu Landeros MD Active OMEPRAZOLE 20 MG CPDR 1 po q a.m. OMEPRAZOLE 95600705740 Active Tu Landeros MD Active GABAPENTIN 100 MG CAPS 1 po bid GABAPENTIN 00461812998 No Longer Active Tu Landeros MD Active B-12 100 MCG TABS Take one by mouth daily CYANOCOBALAMIN 08154431633 No Longer Active Tu Landeros MD Active GABAPENTIN 100 MG CAPS by mouth twice a day GABAPENTIN 48632555022 Active Tu Landeros MD Active BACTRIM DS 800-160 MG TABS 1 bid x 14 day start 14 SULFAMETHOXAZOLE-TRIMETHOPRIM 09962099982 No Longer Active Tu Landeros MD Active CARVEDILOL 12.5 MG TABS 1 po BID CARVEDILOL 71759664796 Active Tu Landeros MD Active SUPER B COMPLEX/VITAMIN C TABS 1 qd B COMPLEX-C 58058697085 Active JASPREET Perez Active TRILIPIX 135 MG CPDR 1 q hs CHOLINE FENOFIBRATE 10526270142 Active Tu Landeros MD Active FENOFIBRATE 145 MG TABS 1 po qd FENOFIBRATE 45835576102 No Longer Active JASPREET Perez Active OMEPRAZOLE 20 MG TBEC 1 PO 30 MIN BEFORE 1ST MEAL OMEPRAZOLE 50440215621 No Longer Active JASPREET Perez Active SIMVASTATIN 40 MG TABS Take one by mouth daily SIMVASTATIN 18618698429 No Longer Active JASPREET Perez Active VENLAFAXINE HCL 37.5 MG TABS 1 bid VENLAFAXINE HCL 14742030378 Active Tu Landeros MD Active VENLAFAXINE HCL 75 MG TABS 1 po BID VENLAFAXINE HCL 27599695167 No Longer Active JASPREET Perez Active CIPRO 500 MG TAB 1 tablet by mouth twice daily CIPROFLOXACIN HCL 67751698507 No Longer Active Tu Landeros MD Active VENLAFAXINE HCL 37.5 MG TABS 1 po BID VENLAFAXINE HCL 99576138030 No Longer Active Suze Corey RMA Active LAMISIL 250 MG TAB 1 po qd TERBINAFINE HCL 26492634142 No Longer Active Tu Landeros MD Active LORTAB 5 5-500 MG TABS 1/2 to 1 tablet by mouth every 4 hours as needed for pain HYDROCODONE-ACETAMINOPHEN 75577281937 No Longer Active Tu Landeros MD Active ENALAPRIL MALEATE 20 MG TABS 1.5 po qd ENALAPRIL MALEATE 29202022773 Active Tu Landeros MD Active HYDROCODONE-ACETAMINOPHEN 5-500 MG TABS take one po Q 4-6 hours prn HYDROCODONE-ACETAMINOPHEN 61115540766 No Longer Active Tu Landeros MD Active BACTRIM DS 800-160 MG TABS 1 po BID x 7 days SULFAMETHOXAZOLE-TRIMETHOPRIM 78618581274 No Longer Active Tu Landeros MD Active VENLAFAXINE HCL 75 MG TABS 1 po BID VENLAFAXINE HCL 58011294764 No Longer Active Elvira Cervantes MD PhD Active TRAMADOL HCL 50 MG TABS 1 tablets every 6 hours as needed for pain TRAMADOL HCL 61506056291 No Longer Active Tu Landeros MD Active ACCU-CHEK FASTCLIX LANCETS MISC Use to check bloodsugar three times daily as needed LANCETS 14747867080 No Longer Active Tu Landeros MD Active ACCU-CHEK KEYONA PLUS STRP Use for testing bloodsugars three times daily as needed GLUCOSE BLOOD 88472590633 No Longer Active Tu Landeros MD Active ACCU-CHEK KEYONA PLUS W/DEVICE KIT Use for testing bloodsugars three times daily as needed BLOOD GLUCOSE MONITORING SUPPL 10139316929 No Longer Active Tu Landeros MD Active SPIRONOLACTONE 25 MG TAB 0.5 tablet by mouth daily SPIRONOLACTONE 57450007121 No Longer Active Tu Landeros MD Active ALPRAZOLAM 0.5 MG TABS 1 tab every 6hrs as needed ALPRAZOLAM 18106826744 No Longer Active Tu Landeros MD Active AUGMENTIN 875-125 MG TAB 1 tab by mouth twice daily with food AMOXICILLIN-POT CLAVULANATE 27708611775 No Longer Active Tu Landeros MD Active PREDNISONE 20 MG TAB 2 tabs daily for 3 days, 1 tab daily for 3 days, 1/2 tab daily for 2 days PREDNISONE 03822450656 No Longer Active Tu Landeros MD Active XANAX 0.5 MG TABS 1 tablet every 6 hrs prn ALPRAZOLAM 76481671546 No Longer Active Tu Landeros MD Active PREDNISONE 20 MG TAB 2 tabs daily for 3 days, 1 tab daily for 3 days, 1/2 tab daily for 2 days PREDNISONE 98251708262 No Longer Active Tu Landeros MD Active TRIAMCINOLONE ACETONIDE 0.1 % OINT Apply to affected areas TID for up to 2 weeks TRIAMCINOLONE ACETONIDE 22571203287 No Longer Active Tu Landeros MD Active LORTAB 5 5-500 MG TABS 1/2 to 1 tablet by mouth every 4 hours as needed for pain HYDROCODONE-ACETAMINOPHEN 28750516527 No Longer Active Tu Landeros MD Active MULTIVITAMINS TABS Take one by mouth daily MULTIPLE VITAMIN 79410315798 No Longer Active Tu Landeros MD Active MELATONIN 5 MG TABS Take one by mouth daily MELATONIN 90405428060 No Longer Active Tu Landeros MD Active SOMA 350 MG TAB 1 po q 6 hours prn spasm CARISOPRODOL 50525312630 No Longer Active Tu Landeros MD Active MECLIZINE HCL 25 MG CHEW TAB 1 four times a day as needed for dizziness 08/05 MECLIZINE HCL 58368434776 No Longer Active Fab Morales DO Active ANGEL BREEZE 2 TEST DISK test tid prn GLUCOSE BLOOD 62037325195 No Longer Active Negra Scott RN Active REGLAN 10 MG TAB 1 po TID PRN Nausea METOCLOPRAMIDE HCL 45956450966 No Longer Active Tu Landeros MD Active METFORMIN HCL 500 MG TABS 1 PO BID METFORMIN HCL 49519760447 No Longer Active Tu Landeros MD Active AMBIEN 10 MG TAB 1 tab by mouth at bedtime as needed for sleep ZOLPIDEM TARTRATE 06748693246 No Longer Active Tu Landeros MD Active FLUOXETINE HCL 40 MG CAPS 1 po q day FLUOXETINE HCL 60907169802 No Longer Active Mayra Loxley Active FISH OIL 1000 MG CAPS Take one by mouth daily OMEGA-3 FATTY ACIDS 16952147107 Active Tu Landeros MD Active GLUCOSAMINE 500 MG TABS Take 2 tab po qd GLUCOSAMINE 62207967319 Active Tu Landeros MD Active TRILIPIX 135 MG CPDR 1 po qd CHOLINE FENOFIBRATE 04617121512 No Longer Active Tu Landeros MD Active ASPIRIN 81 MG CHEW TAB 1 tablet by mouth daily ASPIRIN 83824844262 Active Tu Landeros MD Active FUROSEMIDE 40 MG TAB 1 tablet by mouth daily FUROSEMIDE 04902463191 Active uT Landeros MD Active REQUIP 2 MG TABS Take one tablet at bedtime prn ROPINIROLE HCL 27786792373 Active Tu Landeros MD Active KLOR-CON 10 10 MEQ CR-TABS TAKE 2 TABS DAILY POTASSIUM CHLORIDE 06155263673 Active Tu Landeros MD Active AMBIEN 10 MG TAB 1 tab by mouth at bedtime as needed for sleep AMBIEN 10 MG TAB 578539 ZOLPIDEM TARTRATE Inactive METFORMIN HCL 500 MG TABS 1 PO BID METFORMIN HCL 500 MG TABS 679545 METFORMIN HCL Inactive REGLAN 10 MG TAB 1 po TID PRN Nausea REGLAN 10 MG TAB 319648 METOCLOPRAMIDE HCL Inactive MECLIZINE HCL 25 MG CHEW TAB 1 four times a day as needed for dizziness 08/05 MECLIZINE HCL 25 MG CHEW TAB 426541 MECLIZINE HCL Inactive SOMA 350 MG TAB 1 po q 6 hours prn spasm SOMA 350 MG TAB 215731 CARISOPRODOL Inactive MELATONIN 5 MG TABS Take one by mouth daily MELATONIN 5 MG TABS 653211 MELATONIN Inactive MULTIVITAMINS TABS Take one by mouth daily MULTIVITAMINS TABS MULTIPLE VITAMIN Inactive LORTAB 5 5-500 MG TABS 1/2 to 1 tablet by mouth every 4 hours as needed for pain LORTAB 5 5-500 MG TABS HYDROCODONE- ACETAMINOPHEN Inactive XANAX 0.5 MG TABS 1 tablet every 6 hrs prn XANAX 0.5 MG TABS 227960 ALPRAZOLAM Inactive AUGMENTIN 875-125 MG TAB 1 tab by mouth twice daily with food AUGMENTIN 875-125 MG TAB 523660 AMOXICILLIN-POT CLAVULANATE Inactive ALPRAZOLAM 0.5 MG TABS 1 tab every 6hrs as needed ALPRAZOLAM 0.5 MG TABS 789285 ALPRAZOLAM Inactive SPIRONOLACTONE 25 MG TAB 0.5 tablet by mouth daily SPIRONOLACTONE 25 MG TAB 757027 SPIRONOLACTONE Inactive ACCU-CHEK KEYONA PLUS W/DEVICE KIT Use for testing bloodsugars three times daily as needed ACCU-CHEK KEYONA PLUS W/DEVICE KIT BLOOD GLUCOSE MONITORING SUPPL Inactive ACCU-CHEK KEYONA PLUS STRP Use for testing bloodsugars three times daily as needed ACCU-CHEK KEYONA PLUS STRP GLUCOSE BLOOD Inactive ACCU-CHEK FASTCLIX LANCETS MISC Use to check bloodsugar three times daily as needed ACCU-CHEK FASTCLIX LANCETS MISC 34251596391 LANCETS Inactive TRAMADOL HCL 50 MG TABS 1 tablets every 6 hours as needed for pain TRAMADOL HCL 50 MG TABS 339536 TRAMADOL HCL Inactive VENLAFAXINE HCL 75 MG TABS 1 po BID VENLAFAXINE HCL 75 MG TABS 413932 VENLAFAXINE HCL Inactive HYDROCODONE-ACETAMINOPHEN 5-500 MG TABS take one po Q 4-6 hours prn HYDROCODONE-ACETAMINOPHEN 5-500 MG TABS HYDROCODONE- ACETAMINOPHEN Inactive LORTAB 5 5-500 MG TABS 1/2 to 1 tablet by mouth every 4 hours as needed for pain LORTAB 5 5-500 MG TABS HYDROCODONE- ACETAMINOPHEN Inactive LAMISIL 250 MG TAB 1 po qd LAMISIL 250 MG TAB 021458 TERBINAFINE HCL Inactive VENLAFAXINE HCL 37.5 MG TABS 1 po BID VENLAFAXINE HCL 37.5 MG TABS 655744 VENLAFAXINE HCL Inactive CIPRO 500 MG TAB 1 tablet by mouth twice daily CIPRO 500 MG TAB 367818 CIPROFLOXACIN HCL Inactive VENLAFAXINE HCL 75 MG TABS 1 po BID VENLAFAXINE HCL 75 MG TABS 293429 VENLAFAXINE HCL Inactive SIMVASTATIN 40 MG TABS Take one by mouth daily SIMVASTATIN 40 MG TABS 910390 SIMVASTATIN Inactive OMEPRAZOLE 20 MG TBEC 1 PO 30 MIN BEFORE 1ST MEAL OMEPRAZOLE 20 MG TBEC 724769 OMEPRAZOLE Inactive FENOFIBRATE 145 MG TABS 1 po qd FENOFIBRATE 145 MG TABS 607399 FENOFIBRATE Inactive BACTRIM DS 800-160 MG TABS 1 bid x 14 day start 09-28-13 BACTRIM DS 800-160 MG TABS 956246 SULFAMETHOXAZOLE-TRIMETHOPRIM Inactive B-12 100 MCG TABS Take one by mouth daily B-12 100 MCG TABS CYANOCOBALAMIN Inactive GABAPENTIN 100 MG CAPS 1 po bid GABAPENTIN 100 MG CAPS 000953 GABAPENTIN Inactive HYDROCODONE-ACETAMINOPHEN 5-325 MG TABS 1 tab by mouth every 6 hours as needed for pain HYDROCODONE-ACETAMINOPHEN 5-325 MG TABS 049984 HYDROCODONE-ACETAMINOPHEN Inactive CIPRO 500 MG TABS 1 bid x 14 days start 09-28-13 CIPRO 500 MG TABS 832277 CIPROFLOXACIN HCL Inactive ALIGN 4 MG CAPS [...] as needed DICLOFENAC SODIUM 50 MG TBEC 443076 DICLOFENAC SODIUM Inactive PREDNISONE 20 MG TAB 2 tablets once daily for 2 days, then 1 tablet once daily for 2 days PREDNISONE 20 MG TAB 292706 PREDNISONE Inactive TRUEDRAW LANCING DEVICE MISC Test twice a day dx 250.0 TRUEDRAW LANCING DEVICE MISC LANCET DEVICES Inactive TRUERESULT BLOOD GLUCOSE W/DEVICE KIT test blood sugar twice daily dx 250.00 TRUERESULT BLOOD GLUCOSE W/DEVICE KIT BLOOD GLUCOSE MONITORING SUPPL Inactive FLONASE 50 MCG/ACT SUSP 1 spray each nostril twice daily until bottle empty FLONASE 50 MCG/ACT SUSP 962950 FLUTICASONE PROPIONATE Inactive VENTOLIN HFA 108 (90 BASE) MCG/ACT AERS 1-2 puffs every 4 hours if needed for cough/congestion VENTOLIN HFA 108 (90 BASE) MCG/ACT AERS ALBUTEROL SULFATE Inactive TRIAMCINOLONE ACETONIDE 0.1 % OINT Apply to affected areas TID for up to 2 weeks TRIAMCINOLONE ACETONIDE 0.1 % OINT 3082436 TRIAMCINOLONE ACETONIDE Inactive PREDNISONE 20 MG TAB 2 tabs daily for 3 days, 1 tab daily for 3 days, 1/2 tab daily for 2 days PREDNISONE 20 MG TAB 155987 PREDNISONE Inactive PREDNISONE 20 MG TAB 2 tabs daily for 3 days, 1 tab daily for 3 days, 1/2 tab daily for 2 days PREDNISONE 20 MG TAB 071536 PREDNISONE Inactive BACTRIM DS 800-160 MG TABS 1 po BID x 7 days BACTRIM DS 800-160 MG TABS 335450 SULFAMETHOXAZOLE-TRIMETHOPRIM Inactive ZITHROMAX 250 MG TAB 2 po today, then 1 po q days 2-5 ZITHROMAX 250 MG TAB 1321876 AZITHROMYCIN Inactive Advance Directives Directive Description Start Date DISCUSSED WITH PATIENT -- NO DECISION MADE Immunizations Vaccine Administration Date Value Standard Description Seasonal influenza vaccine, injectable, containing preservative, for > 3 years old (Afluria, FluLaval, Fluzone, Fluvirin, Fluarix, Agriflu(>=18 yo)) Fluzone (>3 yrs.) [QRF499] Influenza, seasonal, injectable influenza immunization (Flu Vax) has been administered 02/22/2012 influenza virus vaccine, unspecified formulation Seasonal influenza vaccine, injectable, containing preservative, for > 3 years old (Afluria, FluLaval, Fluzone, Fluvirin, Fluarix, Agriflu(>=18 yo)) Fluzone (>3 yrs.) [[id number]] Influenza, seasonal, injectable Vital Signs Date Name [...] MICROALBUMIN - Chemistry sodium, serum 142 mmol/L 470-926 5727/10/08 potassium, serum 4.5 mmol/L 3.5-5.2 chloride, serum [...] 0.30 mg/dL 0.00-1.00 cholesterol, serum 111 mg/dL 146-019 5893/07/28 triglyceride, serum, fasting 177 mg/dL 30-200 HDL [...] Panel - Chemistry cholesterol, serum 124 mg/dL 885-384 9208/01/12 triglyceride, serum, fasting 135 mg/dL 30-200 HDL cholesterol, serum 41 mg/dL 32-96 LDL cholesterol, serum 56 mg/dL 0-130 sodium, serum 140 mmol/L 614-848 4260/01/12 carbon dioxide, venous blood 27.7 mmol/L 21.0-32.0 potassium, serum 4.5 mmol/L 3.5-5.2 chloride, serum 104 mmol/L 98-107 blood glucose 139 mg/dL 65-110 urea nitrogen, blood 16 mg/dL 7-18 alanine aminotransferase (SGPT), serum 32 U/L 12-78 aspartate aminotransferase (SGOT), serum 25 U/L 15-37 calcium, serum 9.1 mg/dL 8.5-10.1 bilirubin, serum, total 0.50 mg/dL 0.00-1.00 Encounters Code Encounter Date Provider Facility CPT-55560 Level 4 Est. Patient 14:06:04 MOVIE EXTRA Tu Landeros MD [facility] CPT-73110 Level 3 Est. Patient 14:05:18 MOVIE EXTRA Tu Landeros MD [facility] CPT-12567 Level 3 Est. Patient 10:06:54 MOVIE EXTRA Miranda Suresh APRN [facility] CPT-00075 Level 4 Est. Patient 13:50:18 MOVIE EXTRA Tu Landeros MD [facility] CPT-24262 Level 3 Est. Patient 10:30:04 CDT Tu Landeros MD [facility] CPT-05174 Level 4 Est. Patient 11:03:38 CDT Tu Landeros MD [facility] CPT-95376 Level 3 Est. Patient 10:20:44 CDT Fab Morales DO [facility] CPT-23869 Level 4 Est. Patient 14:38:57 CDT Tu Landeros MD [facility] CPT-78809 Level 4 Est. Patient 14:27:39 MOVIE EXTRA Tu Landeros MD [facility] CPT-37033 Level 4 Est. Patient 09:45:25 CDT Tu Landeros MD [facility] CPT-99921 Level 4 Est. Patient 09:05:20 MOVIE EXTRA Tu Landeros MD [facility] CPT-21114 Level 4 Est. Patient 14:09:06 CDT Tu Landeros MD [facility] CPT-59643 Level 3 Est. Patient 13:36:54 CDT Tu Landeros MD [facility] CPT-60846 Level 3 Est. Patient 08:59:14 CDT Tu Landeros MD [facility] CPT-90393 Level 3 Est. Patient 13:48:35 CDT Fab Morales DO [facility] CPT-90915 Level 4 Est. Patient 10:05:48 CDT Tu Landeros MD [facility] CPT-28120 Level 3 Est. Patient 13:38:42 CDT Marek BANKS [facility] CPT-80204 Level 5 Est. Patient 08:08:39 CDT Jerrica FRANCIS [facility] CPT-46330 Level 4 Est. Patient 14:23:38 CDT Tu Landeros MD [facility] CPT-52871 Level 3 Est. Patient 11:44:04 CDT Tu Landeros MD [facility] CPT-79599 Level 3 Est. Patient 11:03:20 MOVIE EXTRA Tu Landeros MD [facility] CPT-15819 Level 3 Est. Patient 11:03:14 MOVIE EXTRA Tu Landeros MD [facility] CPT-84826 Level 3 Est. Patient 12:42:49 CDT Tu Landeros MD [facility] CPT-28374 Level 3 Est. Patient 11:52:06 CDT Tu Landeros MD [facility] CPT-46784 Level 3 Est. Patient 13:58:11 CDT Tu Landeros MD [facility] CPT-58624 Level 3 Est. Patient 17:50:07 CDT Fab Morales DO [facility] CPT-38939 Level 3 Est. Patient 12:06:29 CDT Elvira Cervantes MD, PhD [facility] CPT-72657 Level 3 Est. Patient 15:50:32 CDT Tu Landeros MD [facility] CPT-01043 Level 4 Est. Patient 16:08:29 CDT Tu Landeros MD [facility] CPT-35642 Level 3 Est. Patient 16:04:19 CDT Tu Landeros MD [facility] CPT-93440 Level 3 Est. Patient 11:22:30 MOVIE EXTRA Tu Landeros MD [facility] CPT-67257 Level 4 Est. Patient 16:24:02 MOVIE EXTRA Tu Landeros MD [facility] CPT-75217 Level 3 Est. Patient 17:21:23 MOVIE EXTRA Tu Landeros MD [facility] Procedures Code Procedure Name Date Entry Date Standard Description CPT-G0438 Initial Annual Wellness Exam 14:13:04 CDT CPT-80911 Breathing Tx 10:06:54 MOVIE EXTRA CPT-65545 Postop F/U Visit 10:02:45 CDT CPT-LR Lesion Removal 09:02:56 CDT CPT-JTINJ Asp/Joint Injection 15:51:27 MOVIE EXTRA CPT-OV Office Visit 15:52:02 MOVIE EXTRA CPT-OV Office Visit 15:45:11 CDT CPT-000 Give Zostavax 14:09:06 CDT CPT-72505 Administration single or combination vaccine inc oral 15 :19:04 CDT CPT-30324 Zoster Vaccine (Zostavax) 15:19:04 CDT CPT-90749 Administration single or combination vaccine inc oral 20 :51:03 CDT CPT-12980 Influenza split virus > age 3 20:51:03 CDT CPT-67850 No Charge Offi Visit 14:52:03 CDT CPT-OV Office Visit 14:57:43 CDT CPT-OV Office Visit 15:22:32 CDT CPT-37921 Administration single or combination vaccine inc oral 11 :33:15 CDT CPT-11474 Influenza split virus > age 3 11:33:15 CDT
--- OUTSIDE RECORDS SUMMARY | 2018-04-25 18:46 | XMS REPORT | Clinical Summary ---
Author Author Admin, SACHI Organization [facility] Address Unknown Phone Unavailable Allergies, Adverse Reactions, [...] not further specified 369.20 Active Ambika Markie SAMPLER OVENS Moderate or severe vision impairment, both eyes, [...] hours if needed for cough/congestion ALBUTEROL SULFATE 22199812100 No Longer Active Ambika Aden APRN Active ZITHROMAX 250 MG TAB 2 po today, then 1 po q days 2-5 AZITHROMYCIN 35100569311 No Longer Active Miranda Suresh APRN Active METFORMIN HCL 1000 MG TABS 1 tablet by mouth twice daily METFORMIN HCL 81210198346 Active Tu Landeros MD Active FLONASE 50 MCG/ACT SUSP 1 spray each nostril twice daily until bottle empty FLUTICASONE PROPIONATE 98658774463 No Longer Active Tu Landeros MD Active COLACE 100 MG CAP 1 po BID PRN Constipation DOCUSATE SODIUM 79394564995 Active Tu Landeros MD Active SIMVASTATIN 40 MG TABS 0.5 tab daily at bedtime SIMVASTATIN 73830814844 Active Tu Landeros MD Active TRUERESULT BLOOD GLUCOSE W/DEVICE KIT test blood sugar twice daily dx 250.00 BLOOD GLUCOSE MONITORING SUPPL 06811892728 No Longer Active Tu Landeros MD Active TRUEDRAW LANCING DEVICE MISC Test twice a day dx 250.0 LANCET DEVICES 86972260099 No Longer Active Tu Landeros MD Active PREDNISONE 20 MG TAB 2 tablets once daily for 2 days, then 1 tablet once daily for 2 days PREDNISONE 08461407905 No Longer Active Tu Landeros MD Active DICLOFENAC SODIUM 50 MG TBEC 1 tablet by mouth three times a day as needed DICLOFENAC SODIUM 83907123516 No Longer Active Fab Morales DO Active TRUEDRAW LANCING DEVICE MISC test blood sugar twice daily dx: 250.00 LANCET DEVICES 28632805140 Active Tu Landeros MD Active TRUETEST TEST INVITR STRP test blood sugar twice daily. DX 250.0 GLUCOSE BLOOD 71888219837 Active Tu Landeros MD Active EMBRACE BLOOD GLUCOSE TEST STRP test blood sugar twice daily DX 250.0 2014 GLUCOSE BLOOD 53863491959 No Longer Active Tu Landeros MD Active TRUETEST TEST STRP test blood sugar three times daily dx: 250.00 GLUCOSE BLOOD 83564003679 No Longer Active Suzebianca Nicole RMMahendra Active TRUERESULT BLOOD GLUCOSE W/DEVICE KIT use to test blood sugar tid dx: 250.00 BLOOD GLUCOSE MONITORING SUPPL 51061420522 No Longer Active Suze Corey RMA Active ALIGN 4 MG CAPS 1 tid PROBIOTIC PRODUCT 65615987084 No Longer Active Shaun Sy MD Active CIPRO 500 MG TABS 1 bid x 14 days start 09-28-13 CIPROFLOXACIN HCL 31038901748 No Longer Active Shaun Sy MD Active TRAMADOL HCL 50 MG TABS 1-2 tablets every 6 hours as needed for pain TRAMADOL HCL 63077972895 Active Tu Landeros MD Active HYDROCODONE-ACETAMINOPHEN 5-325 MG TABS 1 tab by mouth every 6 hours as needed for pain HYDROCODONE-ACETAMINOPHEN 74384134095 No Longer Active Tu Landeros MD Active OMEPRAZOLE 20 MG CPDR 1 po q a.m. OMEPRAZOLE 62335945925 Active Tu Landeros MD Active GABAPENTIN 100 MG CAPS 1 po bid GABAPENTIN 71697097065 No Longer Active Tu Landeros MD Active B-12 100 MCG TABS Take one by mouth daily CYANOCOBALAMIN 01467840409 No Longer Active Tu Landeros MD Active GABAPENTIN 100 MG CAPS by mouth twice a day GABAPENTIN 52874302560 Active Tu Landeros MD Active BACTRIM DS 800-160 MG TABS 1 bid x 14 day start 8-14 SULFAMETHOXAZOLE-TRIMETHOPRIM 04369736745 No Longer Active Tu Landeros MD Active CARVEDILOL 12.5 MG TABS 1 po BID CARVEDILOL 11588395132 Active Tu Landeros MD Active SUPER B COMPLEX/VITAMIN C TABS 1 qd B COMPLEX-C 13942991600 Active JASPREET Perez Active TRILIPIX 135 MG CPDR 1 q hs CHOLINE FENOFIBRATE 15158226910 Active Tu Landeros MD Active FENOFIBRATE 145 MG TABS 1 po qd FENOFIBRATE 65040884423 No Longer Active JASPREET Perez Active OMEPRAZOLE 20 MG TBEC 1 PO 30 MIN BEFORE 1ST MEAL OMEPRAZOLE 58047001803 No Longer Active JASPREET Perez Active SIMVASTATIN 40 MG TABS Take one by mouth daily SIMVASTATIN 74551681848 No Longer Active JASPREET Perez Active VENLAFAXINE HCL 37.5 MG TABS 1 bid VENLAFAXINE HCL 87562025034 Active Tu Landeros MD Active VENLAFAXINE HCL 75 MG TABS 1 po BID VENLAFAXINE HCL 42711034596 No Longer Active JASPREET Perez Active CIPRO 500 MG TAB 1 tablet by mouth twice daily CIPROFLOXACIN HCL 35535291908 No Longer Active Tu Landeros MD Active VENLAFAXINE HCL 37.5 MG TABS 1 po BID VENLAFAXINE HCL 64625047769 No Longer Active Suze Corey RMA Active LAMISIL 250 MG TAB 1 po qd TERBINAFINE HCL 96704349682 No Longer Active Tu Landeros MD Active LORTAB 5 5-500 MG TABS 1/2 to 1 tablet by mouth every 4 hours as needed for pain HYDROCODONE-ACETAMINOPHEN 49821051842 No Longer Active Tu Landeros MD Active ENALAPRIL MALEATE 20 MG TABS 1.5 po qd ENALAPRIL MALEATE 18216885540 Active Tu Landeros MD Active HYDROCODONE-ACETAMINOPHEN 5-500 MG TABS take one po Q 4-6 hours prn HYDROCODONE-ACETAMINOPHEN 70921099612 No Longer Active Tu Landeros MD Active BACTRIM DS 800-160 MG TABS 1 po BID x 7 days SULFAMETHOXAZOLE-TRIMETHOPRIM 97485961584 No Longer Active Tu Landeros MD Active VENLAFAXINE HCL 75 MG TABS 1 po BID VENLAFAXINE HCL 76433845844 No Longer Active Elvira Cervantes MD PhD Active TRAMADOL HCL 50 MG TABS 1 tablets every 6 hours as needed for pain TRAMADOL HCL 41351298447 No Longer Active Tu Landeros MD Active ACCU-CHEK FASTCLIX LANCETS MISC Use to check bloodsugar three times daily as needed LANCETS 74060777865 No Longer Active Tu Landeros MD Active ACCU-CHEK KEYONA PLUS STRP Use for testing bloodsugars three times daily as needed GLUCOSE BLOOD 44001183043 No Longer Active Tu Landeros MD Active ACCU-CHEK KEYONA PLUS W/DEVICE KIT Use for testing bloodsugars three times daily as needed BLOOD GLUCOSE MONITORING SUPPL 35863055586 No Longer Active Tu Landeros MD Active SPIRONOLACTONE 25 MG TAB 0.5 tablet by mouth daily SPIRONOLACTONE 24102625864 No Longer Active Tu Landeros MD Active ALPRAZOLAM 0.5 MG TABS 1 tab every 6hrs as needed ALPRAZOLAM 38272956985 No Longer Active Tu Landeros MD Active AUGMENTIN 875-125 MG TAB 1 tab by mouth twice daily with food AMOXICILLIN-POT CLAVULANATE 43669981696 No Longer Active Tu Landeros MD Active PREDNISONE 20 MG TAB 2 tabs daily for 3 days, 1 tab daily for 3 days, 1/2 tab daily for 2 days PREDNISONE 63251578414 No Longer Active Tu Landeros MD Active XANAX 0.5 MG TABS 1 tablet every 6 hrs prn ALPRAZOLAM 92231265586 No Longer Active Tu Landeros MD Active PREDNISONE 20 MG TAB 2 tabs daily for 3 days, 1 tab daily for 3 days, 1/2 tab daily for 2 days PREDNISONE 33674717281 No Longer Active Tu Landeros MD Active TRIAMCINOLONE ACETONIDE 0.1 % OINT Apply to affected areas TID for up to 2 weeks TRIAMCINOLONE ACETONIDE 26754529949 No Longer Active Tu Landeros MD Active LORTAB 5 5-500 MG TABS 1/2 to 1 tablet by mouth every 4 hours as needed for pain HYDROCODONE-ACETAMINOPHEN 26331569003 No Longer Active Tu Landeros MD Active MULTIVITAMINS TABS Take one by mouth daily MULTIPLE VITAMIN 30361817589 No Longer Active Tu Landeros MD Active MELATONIN 5 MG TABS Take one by mouth daily MELATONIN 05542550216 No Longer Active Tu Landeros MD Active SOMA 350 MG TAB 1 po q 6 hours prn spasm CARISOPRODOL 41431586076 No Longer Active Tu Landeros MD Active MECLIZINE HCL 25 MG CHEW TAB 1 four times a day as needed for dizziness 08/05 MECLIZINE HCL 09975721778 No Longer Active Fab Morales DO Active ANGEL BREEZE 2 TEST DISK test tid prn GLUCOSE BLOOD 00412822716 No Longer Active Negra Scott RN Active REGLAN 10 MG TAB 1 po TID PRN [place] METOCLOPRAMIDE HCL 13115393061 No Longer Active Tu Landeros MD Active METFORMIN HCL 500 MG TABS 1 PO BID METFORMIN HCL 38537736123 No Longer Active Tu Landeros MD Active AMBIEN 10 MG TAB 1 tab by mouth at bedtime as needed for sleep ZOLPIDEM TARTRATE 20169728835 No Longer Active Tu Landeros MD Active FLUOXETINE HCL 40 MG CAPS 1 po q day FLUOXETINE HCL 09872563752 No Longer Active Mayra Terry Active FISH OIL 1000 MG CAPS Take one by mouth daily OMEGA-3 FATTY ACIDS 38477069725 Active Tu Landeros MD Active GLUCOSAMINE 500 MG TABS Take 2 tab po qd GLUCOSAMINE 11863272534 Active Tu Landeros MD Active TRILIPIX 135 MG CPDR 1 po qd CHOLINE FENOFIBRATE 33254057267 No Longer Active Tu Landeros MD Active ASPIRIN 81 MG CHEW TAB 1 tablet by mouth daily ASPIRIN 84927173502 Active Tu Landeros MD Active FUROSEMIDE 40 MG TAB 1 tablet by mouth daily FUROSEMIDE 21903581541 Active Tu Landeros MD Active REQUIP 2 MG TABS Take one tablet at bedtime prn ROPINIROLE HCL 95673249230 Active Tu Landeros MD Active KLOR-CON 10 10 MEQ CR-TABS TAKE 2 TABS DAILY POTASSIUM CHLORIDE 83172316831 Active Tu Landeros MD Active AMBIEN 10 MG TAB 1 tab by mouth at bedtime as needed for sleep AMBIEN 10 MG TAB 998115 ZOLPIDEM TARTRATE Inactive METFORMIN HCL 500 MG TABS 1 PO BID METFORMIN HCL 500 MG TABS 850409 METFORMIN HCL Inactive REGLAN 10 MG TAB 1 po TID PRN Nausea REGLAN 10 MG TAB 179825 METOCLOPRAMIDE HCL Inactive MECLIZINE HCL 25 MG CHEW TAB 1 four times a day as needed for dizziness 08/05 MECLIZINE HCL 25 MG CHEW TAB 353215 MECLIZINE HCL Inactive SOMA 350 MG TAB 1 po q 6 hours prn spasm SOMA 350 MG TAB 669851 CARISOPRODOL Inactive MELATONIN 5 MG TABS Take one by mouth daily MELATONIN 5 MG TABS 091741 MELATONIN Inactive MULTIVITAMINS TABS Take one by mouth daily MULTIVITAMINS TABS MULTIPLE VITAMIN Inactive LORTAB 5 5-500 MG TABS 1/2 to 1 tablet by mouth every 4 hours as needed for pain LORTAB 5 5-500 MG TABS HYDROCODONE- ACETAMINOPHEN Inactive XANAX 0.5 MG TABS 1 tablet every 6 hrs prn XANAX 0.5 MG TABS 489818 ALPRAZOLAM Inactive AUGMENTIN 875-125 MG TAB 1 tab by mouth twice daily with food AUGMENTIN 875-125 MG TAB 956017 AMOXICILLIN-POT CLAVULANATE Inactive ALPRAZOLAM 0.5 MG TABS 1 tab every 6hrs as needed ALPRAZOLAM 0.5 MG TABS 013027 ALPRAZOLAM Inactive SPIRONOLACTONE 25 MG TAB 0.5 tablet by mouth daily SPIRONOLACTONE 25 MG TAB 849845 SPIRONOLACTONE Inactive ACCU-CHEK KEYONA PLUS W/DEVICE KIT Use for testing bloodsugars three times daily as needed ACCU-CHEK KEYONA PLUS W/DEVICE KIT BLOOD GLUCOSE MONITORING SUPPL Inactive ACCU-CHEK KEYONA PLUS STRP Use for testing bloodsugars three times daily as needed ACCU-CHEK KEYONA PLUS STRP GLUCOSE BLOOD Inactive ACCU-CHEK FASTCLIX LANCETS MISC Use to check bloodsugar three times daily as needed ACCU-CHEK FASTCLIX LANCETS MISC 21005909241 LANCETS Inactive TRAMADOL HCL 50 MG TABS 1 tablets every 6 hours as needed for pain TRAMADOL HCL 50 MG TABS 175037 TRAMADOL HCL Inactive VENLAFAXINE HCL 75 MG TABS 1 po BID VENLAFAXINE HCL 75 MG TABS 653746 VENLAFAXINE HCL Inactive HYDROCODONE-ACETAMINOPHEN 5-500 MG TABS take one po Q 4-6 hours prn HYDROCODONE-ACETAMINOPHEN 5-500 MG TABS HYDROCODONE- ACETAMINOPHEN Inactive LORTAB 5 5-500 MG TABS 1/2 to 1 tablet by mouth every 4 hours as needed for pain LORTAB 5 5-500 MG TABS HYDROCODONE- ACETAMINOPHEN Inactive LAMISIL 250 MG TAB 1 po qd LAMISIL 250 MG TAB 447493 TERBINAFINE HCL Inactive VENLAFAXINE HCL 37.5 MG TABS 1 po BID VENLAFAXINE HCL 37.5 MG TABS 943833 VENLAFAXINE HCL Inactive CIPRO 500 MG TAB 1 tablet by mouth twice daily CIPRO 500 MG TAB 633093 CIPROFLOXACIN HCL Inactive VENLAFAXINE HCL 75 MG TABS 1 po BID VENLAFAXINE HCL 75 MG TABS 785534 VENLAFAXINE HCL Inactive SIMVASTATIN 40 MG TABS Take one by mouth daily SIMVASTATIN 40 MG TABS 901742 SIMVASTATIN Inactive OMEPRAZOLE 20 MG TBEC 1 PO 30 MIN BEFORE 1ST MEAL OMEPRAZOLE 20 MG TBEC 801951 OMEPRAZOLE Inactive FENOFIBRATE 145 MG TABS 1 po qd FENOFIBRATE 145 MG TABS 049980 FENOFIBRATE Inactive BACTRIM DS 800-160 MG TABS 1 bid x 14 day start 09-28-13 BACTRIM DS 800-160 MG TABS 948180 SULFAMETHOXAZOLE-TRIMETHOPRIM Inactive B-12 100 MCG TABS Take one by mouth daily B-12 100 MCG TABS CYANOCOBALAMIN Inactive GABAPENTIN 100 MG CAPS 1 po bid GABAPENTIN 100 MG CAPS 337754 GABAPENTIN Inactive HYDROCODONE-ACETAMINOPHEN 5-325 MG TABS 1 tab by mouth every 6 hours as needed for pain HYDROCODONE-ACETAMINOPHEN 5-325 MG TABS 613975 HYDROCODONE-ACETAMINOPHEN Inactive CIPRO 500 MG TABS 1 bid x 14 days start 09-28-13 CIPRO 500 MG TABS 728391 CIPROFLOXACIN HCL Inactive ALIGN 4 MG CAPS [...] as needed DICLOFENAC SODIUM 50 MG TBEC 952087 DICLOFENAC SODIUM Inactive PREDNISONE 20 MG TAB 2 tablets once daily for 2 days, then 1 tablet once daily for 2 days PREDNISONE 20 MG TAB 168786 PREDNISONE Inactive TRUEDRAW LANCING DEVICE MISC Test twice a day dx 250.0 TRUEDRAW LANCING DEVICE MISC LANCET DEVICES Inactive TRUERESULT BLOOD GLUCOSE W/DEVICE KIT test blood sugar twice daily dx 250.00 TRUERESULT BLOOD GLUCOSE W/DEVICE KIT BLOOD GLUCOSE MONITORING SUPPL Inactive FLONASE 50 MCG/ACT SUSP 1 spray each nostril twice daily until bottle empty FLONASE 50 MCG/ACT SUSP 388706 FLUTICASONE PROPIONATE Inactive VENTOLIN HFA 108 (90 BASE) MCG/ACT AERS 1-2 puffs every 4 hours if needed for cough/congestion VENTOLIN HFA 108 (90 BASE) MCG/ACT AERS ALBUTEROL SULFATE Inactive TRIAMCINOLONE ACETONIDE 0.1 % OINT Apply to affected areas TID for up to 2 weeks TRIAMCINOLONE ACETONIDE 0.1 % OINT 9756433 TRIAMCINOLONE ACETONIDE Inactive PREDNISONE 20 MG TAB 2 tabs daily for 3 days, 1 tab daily for 3 days, 1/2 tab daily for 2 days PREDNISONE 20 MG TAB 764180 PREDNISONE Inactive PREDNISONE 20 MG TAB 2 tabs daily for 3 days, 1 tab daily for 3 days, 1/2 tab daily for 2 days PREDNISONE 20 MG TAB 774829 PREDNISONE Inactive BACTRIM DS 800-160 MG TABS 1 po BID x 7 days BACTRIM DS 800-160 MG TABS 111444 SULFAMETHOXAZOLE-TRIMETHOPRIM Inactive ZITHROMAX 250 MG TAB 2 po today, then 1 po q days 2-5 ZITHROMAX 250 MG TAB 4941908 AZITHROMYCIN Inactive Advance Directives Directive Description Start Date DISCUSSED WITH PATIENT -- NO DECISION MADE Immunizations Vaccine Administration Date Value Standard Description Seasonal influenza vaccine, injectable, containing preservative, for > 3 years old (Afluria, FluLaval, Fluzone, Fluvirin, Fluarix, Agriflu(>=18 yo)) Fluzone (>3 yrs.) [[id number]] Influenza, seasonal, injectable influenza immunization (Flu Vax) has been administered 02/22/2012 influenza virus vaccine, unspecified formulation Seasonal influenza vaccine, injectable, containing preservative, for > 3 years old (Afluria, FluLaval, Fluzone, Fluvirin, Fluarix, Agriflu(>=18 yo)) Fluzone (>3 yrs.) [[id number]] Influenza, seasonal, injectable Vital Signs Date Name [...] MICROALBUMIN - Chemistry sodium, serum 142 mmol/L 183-365 7342/10/08 potassium, serum 4.5 mmol/L 3.5-5.2 chloride, serum [...] 0.30 mg/dL 0.00-1.00 cholesterol, serum 111 mg/dL 447-341 5489/07/28 triglyceride, serum, fasting 177 mg/dL 30-200 HDL [...] Panel - Chemistry cholesterol, serum 124 mg/dL 984-447 5594/01/12 triglyceride, serum, fasting 135 mg/dL 30-200 HDL cholesterol, serum 41 mg/dL 32-96 LDL cholesterol, serum 56 mg/dL 0-130 sodium, serum 140 mmol/L 622-308 9157/01/12 carbon dioxide, venous blood 27.7 mmol/L 21.0-32.0 potassium, serum 4.5 mmol/L 3.5-5.2 chloride, serum 104 mmol/L 98-107 blood glucose 139 mg/dL 65-110 urea nitrogen, blood 16 mg/dL 7-18 alanine aminotransferase (SGPT), serum 32 U/L 12-78 aspartate aminotransferase (SGOT), serum 25 U/L 15-37 calcium, serum 9.1 mg/dL 8.5-10.1 bilirubin, serum, total 0.50 mg/dL 0.00-1.00 Encounters Code Encounter Date Provider Facility CPT-80211 Level 4 Est. Patient 14:06:04 [employer]ING [employer] Tu Landeros MD [facility] CPT-65995 Level 3 Est. Patient 14:05:18 [employer]ING TE[employer]ER Tu Landeros MD [facility] CPT-03411 Level 3 Est. Patient 10:06:54 [employer]ER Miranda Suresh APRN [facility] CPT-60501 Level 4 Est. 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 Patient 10:30:04 CDT Tu Landeros MD [facility] CPT-94687 Level 4 Est. Patient 11:03:38 CDT Tu Landeros MD [facility] CPT-87687 Level 3 Est. Patient 10:20:44 CDT Fab Morales DO [facility] CPT-73181 Level 4 Est. Patient 14:38:57 CDT Tu Landeros MD [facility] CPT-98013 Level 4 Est. Patient 14:27:39 [employer]ER Tu Landeros MD [facility] CPT-77855 Level 4 Est. Patient 09:45:25 CDT Tu Landeros MD [facility] CPT-69354 Level 4 Est. 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 Patient 14:09:06 CDT Tu Landeros MD [facility] CPT-04647 Level 3 Est. Patient 13:36:54 CDT Tu Landeros MD [facility] CPT-72470 Level 3 Est. Patient 08:59:14 CDT Tu Landeros MD [facility] CPT-61075 Level 3 Est. Patient 13:48:35 CDT Fab Morales DO [facility] CPT-96102 Level 4 Est. Patient 10:05:48 CDT Tu Landeros MD [facility] CPT-84768 Level 3 Est. Patient 13:38:42 CDT Marek BANKS [facility] CPT-47805 Level 5 Est. Patient 08:08:39 CDT Jerrica FRANCIS [facility] CPT-31028 Level 4 Est. Patient 14:23:38 CDT Tu Landeros MD [facility] CPT-68413 Level 3 Est. Patient 11:44:04 CDT Tu Landeros MD [facility] CPT-13337 Level 3 Est. Patient 11:03:20 [employer] TE[employer]ER Tu Landeros MD [facility] CPT-47488 Level 3 Est. Patient 11:03:14 COMMER[employer]ING TE[employer]ER Tu Landeros MD [facility] CPT-53019 Level 3 Est. Patient 12:42:49 CDT Tu Landeros MD [facility] CPT-42461 Level 3 Est. Patient 11:52:06 CDT Tu Landeros MD [facility] CPT-36517 Level 3 Est. Patient 13:58:11 CDT Tu Landeros MD [facility] CPT-02987 Level 3 Est. Patient 17:50:07 CDT Fab Morales DO [facility] CPT-36652 Level 3 Est. Patient 12:06:29 CDT Elvira Cervantes MD, PhD [facility] CPT-20593 Level 3 Est. Patient 15:50:32 CDT Tu Landeros MD [facility] CPT-43140 Level 4 Est. Patient 16:08:29 CDT Tu Landeros MD [facility] CPT-92862 Level 3 Est. Patient 16:04:19 CDT Tu Landeros MD [facility] CPT-68938 Level 3 Est. Patient 11:22:30 [employer]ING [employer]ER Tu Landeros MD [facility] CPT-12781 Level 4 Est. Patient 16:24:02 COMMER[employer]ING TE[employer]ER Tu Landeros MD [facility] CPT-25618 Level 3 Est. Patient 17:21:23 COMMER[employer]ING TE[employer]ER Tu Landeros MD [facility] Procedures Code Procedure Name Date Entry Date Standard Description CPT-G0438 Initial Annual Wellness Exam 14:13:04 CDT CPT-49903 Breathing Tx 10:06:54 [employer] CPT-79990 Postop F/U Visit 10:02:45 CDT CPT-LR Lesion Removal 09:02:56 CDT CPT-JTINJ Asp/Joint Injection 15:51:27 [employer]ER CPT-OV Office Visit 15:52:02 [employer]ERCIAL B[employer]ING TE[employer]ER CPT-OV Office Visit 15:45:11 CDT CPT-000 Give Zostavax 14:09:06 CDT CPT-68579 Administration single or combination vaccine inc oral 15 :19:04 CDT CPT-41081 Zoster Vaccine (Zostavax) 15:19:04 CDT CPT-61899 Administration single or combination vaccine inc oral 20 :51:03 CDT CPT-53956 Influenza split virus > age 3 20:51:03 CDT CPT-85079 No Charge Offi Visit 14:52:03 CDT CPT-OV Office Visit 14:57:43 CDT CPT-OV Office Visit 15:22:32 CDT CPT-19107 Administration single or combination vaccine inc oral 11 :33:15 CDT CPT-88561 Influenza split virus > age 3 11:33:15 CDT
--- OUTSIDE RECORDS SUMMARY | 2018-04-25 18:48 | XMS REPORT | Clinical Summary ---
Author Author Admin, SACHI Organization [employer] Address Unknown Phone Unavailable Allergies, Adverse Reactions, [...] involving lower leg Osteoarthritis 715.90 Resolved Tu aLnderos MD Osteoarthrosis, unspecified whether generalized or localized, [...] ORAL TABLET 1 po BID MAGNESIUM OXIDE 23590863829 Active Tu Landeros MD Active SIMVASTATIN 20 MG ORAL TABLET 0.5 po qHS SIMVASTATIN 27832251153 Active Tu Landeros MD Active DICLOFENAC SODIUM 75 MG ORAL TABLET DELAYED RELEASE 1 po BID PRN Pain DICLOFENAC SODIUM 56056099597 No Longer Active Tu Landeros MD Active GABAPENTIN 100 MG ORAL CAPSULE 1 po TID GABAPENTIN 85133957417 Active Tu Landeros MD Active DICLOFENAC SODIUM 50 MG ORAL TABLET DELAYED RELEASE 1 po BID PRN Pain DICLOFENAC SODIUM 59311421469 No Longer Active Tu Landeros MD Active CYCLOBENZAPRINE HCL 10 MG ORAL TABLET 1 po TID PRN Muscle Spasm CYCLOBENZAPRINE HCL 75124859269 No Longer Active Tu Landeros MD Active INVOKANA 100 MG ORAL TABLET 1 po qd CANAGLIFLOZIN 11223061858 Active Tu Landeros MD Active GLIPIZIDE 5 MG ORAL TABLET 1 po qd GLIPIZIDE 71694747250 No Longer Active Tu Landeros MD Active VENLAFAXINE HCL 75 MG ORAL TABLET 1 po BID VENLAFAXINE HCL 11591956362 Active Tu Landeros MD Active GLIMEPIRIDE 1 MG ORAL TABLET 1 po qd GLIMEPIRIDE 66335668908 No Longer Active Tu Landeros MD Active TRUE METRIX BLOOD GLUCOSE TEST IN VITRO STRIP Test blood sugar BID Dx: E11.9 GLUCOSE BLOOD 86895420693 Active Tu Landeros MD Active TRUE METRIX AIR GLUCOSE METER w/Device KIT Test blood glucose BID Dx: E11.9 BLOOD GLUCOSE MONITORING SUPPL 92730084793 Active Tu Landeros MD Active TRUETEST TEST IN VITRO STRIP test blood sugar twice daily. DX 250.0 GLUCOSE BLOOD 10906353126 No Longer Active Mirna Stanley LPN Active TRUEDRAW LANCING DEVICE test blood sugar twice daily dx: 250.00 LANCET DEVICES 86173324382 No Longer Active Mirna Stanley LPN Active ENALAPRIL MALEATE 20 MG ORAL TABLET 2 po qd ENALAPRIL MALEATE 64273451820 Active Tu Landeros MD Active SUPER B COMPLEX/VITAMIN C ORAL TABLET 1 qd B COMPLEX- C 06607696197 No Longer Active Tu Landeros MD Active ASPIRIN EC 81 MG ORAL TABLET DELAYED RELEASE 1 po qd ASPIRIN 71060557019 Active Tu Landeros MD Active GLUCOSAMINE 500 MG TABS 2 po qd GLUCOSAMINE Active Tu Landeros MD Active FISH OIL 1000 MG ORAL CAPSULE 1 po qd OMEGA-3 FATTY ACIDS 69235744874 Active Tu Landeros MD Active METFORMIN HCL 1000 MG ORAL TABLET 1 po BID METFORMIN HCL 12246890486 Active Tu Landeros MD Active KLOR-CON 10 10 MEQ ORAL TABLET EXTENDED RELEASE 2 po qd POTASSIUM CHLORIDE 60889869025 Active Tu Landeros MD Active FUROSEMIDE 40 MG ORAL TABLET 1 po qd FUROSEMIDE 13595844530 Active Tu Landeros MD Active REQUIP 2 MG ORAL TABLET 1 po qHS PRN Restless legs ROPINIROLE HCL 95284928976 Active Tu Landeros MD Active REQUIP 2 MG ORAL TABLET Take one tablet at bedtime prn ROPINIROLE HCL 25355696096 No Longer Active Tu Landeros MD Active VENTOLIN HFA 108 (90 Base) MCG/ACT INHALATION AEROSOL SOLUTION 1-2 puffs every 4 hours if needed for cough/congestion ALBUTEROL SULFATE 16531110016 No Longer Active Ambika Aden APRN Active ZITHROMAX 250 MG ORAL TABLET 2 po today, then 1 po q days 2-5 AZITHROMYCIN 92320157343 No Longer Active Miranda Suresh APRN Active FLONASE 50 MCG/ACT NASAL SUSPENSION 1 spray each nostril twice daily until bottle empty FLUTICASONE PROPIONATE 94161092320 No Longer Active Tu Landeros MD Active COLACE 100 MG ORAL CAPSULE 1 po BID PRN Constipation DOCUSATE SODIUM 77445358916 Active Tu Landeros MD Active TRUERESULT BLOOD GLUCOSE w/Device KIT test blood sugar twice daily dx 250.00 BLOOD GLUCOSE MONITORING SUPPL 41161376994 No Longer Active Tu Landeros MD Active TRUEDRAW LANCING DEVICE Test twice a day dx 250.0 LANCET DEVICES 20020973638 No Longer Active Tu Landeros MD Active PREDNISONE 20 MG ORAL TABLET 2 tablets once daily for 2 days, then 1 tablet once daily for 2 days PREDNISONE 31272890391 No Longer Active Tu Landeros MD Active DICLOFENAC SODIUM 50 MG ORAL TABLET DELAYED RELEASE 1 tablet by mouth three times a day as needed DICLOFENAC SODIUM 22085263182 No Longer Active Fab Morales DO Active EMBRACE BLOOD GLUCOSE TEST IN VITRO STRIP test blood sugar twice daily DX 250.0 GLUCOSE BLOOD 67180157808 No Longer Active Tu Landeros MD Active TRUETEST TEST IN VITRO STRIP test blood sugar three times daily dx: 250.00 GLUCOSE BLOOD 82662558250 No Longer Active Suze VOGEL Active TRUERESULT BLOOD GLUCOSE w/Device KIT use to test blood sugar tid dx: 250.00 BLOOD GLUCOSE MONITORING SUPPL 69459489570 No Longer Active Suze Corey VOGEL Active ALIGN 4 MG ORAL CAPSULE 1 tid PROBIOTIC PRODUCT 93920272058 No Longer Active Shaun Sy MD Active CIPRO 500 MG ORAL TABLET 1 bid x 14 days start 09-28-13 CIPROFLOXACIN HCL 46332377476 No Longer Active Shaun Sy MD Active TRAMADOL HCL 50 MG ORAL TABLET 1-2 tablets every 6 hours as needed for pain TRAMADOL HCL 66464247510 Active Tu Landeros MD Active HYDROCODONE-ACETAMINOPHEN 5-325 MG ORAL TABLET 1 tab by mouth every 6 hours as needed for pain HYDROCODONE-ACETAMINOPHEN 48131242333 No Longer Active Tu Landeros MD Active OMEPRAZOLE 20 MG ORAL CAPSULE DELAYED RELEASE 1 po q a.m. OMEPRAZOLE 20999302757 Active Fab Morales DO Active GABAPENTIN 100 MG ORAL CAPSULE 1 po bid GABAPENTIN 53635952665 No Longer Active Tu Landeros MD Active B-12 100 MCG ORAL TABLET Take one by mouth daily CYANOCOBALAMIN 89969789434 No Longer Active Tu Landeros MD Active BACTRIM DS 800-160 MG ORAL TABLET 1 bid x 14 day start 09-28-13 SULFAMETHOXAZOLE-TRIMETHOPRIM 77903734997 No Longer Active Tu Landeros MD Active CARVEDILOL 12.5 MG ORAL TABLET 1 po BID CARVEDILOL 07877761541 Active Tu Landeros MD Active TRILIPIX 135 MG ORAL CAPSULE DELAYED RELEASE 1 q hs CHOLINE FENOFIBRATE 01034436187 Active Tu Landeros MD Active FENOFIBRATE 145 MG ORAL TABLET 1 po qd FENOFIBRATE 83871749043 No Longer Active JASPREET Perez Active OMEPRAZOLE 20 MG ORAL TABLET DELAYED RELEASE 1 PO 30 MIN BEFORE 1ST MEAL 2010 OMEPRAZOLE 46732758432 No Longer Active JASPREET Perez Active SIMVASTATIN 40 MG ORAL TABLET Take one by mouth daily SIMVASTATIN 16737897704 No Longer Active JASPREET Perez Active VENLAFAXINE HCL 75 MG ORAL TABLET 1 po BID VENLAFAXINE HCL 44852604227 No Longer Active JASPREET Perez Active CIPRO 500 MG ORAL TABLET 1 tablet by mouth twice daily CIPROFLOXACIN HCL 07174514910 No Longer Active Tu Landeros MD Active VENLAFAXINE HCL 37.5 MG ORAL TABLET 1 po BID VENLAFAXINE HCL 94008646471 No Longer Active Suze VOGEL Active LAMISIL 250 MG ORAL TABLET 1 po qd TERBINAFINE HCL 78544320308 No Longer Active Tu Landeros MD Active LORTAB 5-500 MG ORAL TABLET 1/2 to 1 tablet by mouth every 4 hours as needed for pain HYDROCODONE-ACETAMINOPHEN 29771815971 No Longer Active Tu Landeros MD Active HYDROCODONE-ACETAMINOPHEN 5-500 MG ORAL TABLET take one po Q 4-6 hours prn HYDROCODONE-ACETAMINOPHEN 23984442451 No Longer Active Tu Landeros MD Active BACTRIM DS 800-160 MG ORAL TABLET 1 po BID x 7 days SULFAMETHOXAZOLE-TRIMETHOPRIM 87848043453 No Longer Active Tu Landeros MD Active VENLAFAXINE HCL 75 MG ORAL TABLET 1 po BID VENLAFAXINE HCL 50788084054 No Longer Active Elvira Cervantes MD PhD Active TRAMADOL HCL 50 MG ORAL TABLET 1 tablets every 6 hours as needed for pain TRAMADOL HCL 10025631097 No Longer Active Tu Landeros MD Active ACCU-CHEK FASTCLIX LANCETS Use to check bloodsugar three times daily as needed LANCETS 00123421972 No Longer Active Tu Landeros MD Active ACCU-CHEK KEYONA PLUS IN VITRO STRIP Use for testing bloodsugars three times daily as needed GLUCOSE BLOOD 45202751824 No Longer Active Tu Landeros MD Active ACCU-CHEK KEYONA PLUS w/Device KIT Use for testing bloodsugars three times daily as needed BLOOD GLUCOSE MONITORING SUPPL 65872046190 No Longer Active Tu Landeros MD Active SPIRONOLACTONE 25 MG ORAL TABLET 0.5 tablet by mouth daily 09/09 SPIRONOLACTONE 86094974175 No Longer Active Tu Landeros MD Active ALPRAZOLAM 0.5 MG ORAL TABLET 1 tab every 6hrs as needed ALPRAZOLAM 73458369792 No Longer Active Tu Landeros MD Active AUGMENTIN 875-125 MG ORAL TABLET 1 tab by mouth twice daily with food AMOXICILLIN-POT CLAVULANATE 22942098236 No Longer Active Tu Landeros MD Active PREDNISONE 20 MG ORAL TABLET 2 tabs daily for 3 days, 1 tab daily for 3 days, 1/2 tab daily for 2 days PREDNISONE 67328082812 No Longer Active Tu Landeros MD Active XANAX 0.5 MG ORAL TABLET 1 tablet every 6 hrs prn ALPRAZOLAM 35914218473 No Longer Active Tu Landeros MD Active PREDNISONE 20 MG ORAL TABLET 2 tabs daily for 3 days, 1 tab daily for 3 days, 1/2 tab daily for 2 days PREDNISONE 39265158846 No Longer Active Tu Landeros MD Active TRIAMCINOLONE ACETONIDE 0.1 % EXTERNAL OINTMENT Apply to affected areas TID for up to 2 weeks TRIAMCINOLONE ACETONIDE 21997455967 No Longer Active Tu Landeros MD Active LORTAB 5-500 MG ORAL TABLET 1/2 to 1 tablet by mouth every 4 hours as needed for pain HYDROCODONE-ACETAMINOPHEN 87657979971 No Longer Active Tu Landeros MD Active MULTIVITAMINS TABS Take one by mouth daily MULTIPLE VITAMIN 69038113106 No Longer Active Tu Landeros MD Active MELATONIN 5 MG ORAL TABLET Take one by mouth daily MELATONIN 40633794011 No Longer Active Tu Landeros MD Active SOMA 350 MG ORAL TABLET 1 po q 6 hours prn spasm CARISOPRODOL 46101549000 No Longer Active Tu Landeros MD Active MECLIZINE HCL 25 MG ORAL TABLET CHEWABLE 1 four times a day as needed for dizziness MECLIZINE HCL 47796516747 No Longer Active Fab Morales DO Active ANGEL BREEZE 2 TEST IN VITRO DISK test tid prn GLUCOSE BLOOD 58590322162 No Longer Active Negra Scott RN Active REGLAN 10 MG ORAL TABLET 1 po TID PRN Nausea METOCLOPRAMIDE HCL 84503251145 No Longer Active Tu Landeros MD Active METFORMIN HCL 500 MG ORAL TABLET 1 PO BID METFORMIN HCL 76297462740 No Longer Active Tu Landeros MD Active AMBIEN 10 MG ORAL TABLET 1 tab by mouth at bedtime as needed for sleep 06/10 ZOLPIDEM TARTRATE 13626491112 No Longer Active Tu Landeros MD Active FLUOXETINE HCL 40 MG ORAL CAPSULE 1 po q day FLUOXETINE HCL 86622772011 No Longer Active Mayra Terry Active TRILIPIX 135 MG ORAL CAPSULE DELAYED RELEASE 1 po qd CHOLINE FENOFIBRATE 19047835501 No Longer Active Tu Landeros MD Active AMBIEN 10 MG ORAL TABLET 1 tab by mouth at bedtime as needed for sleep 06/10 AMBIEN 10 MG ORAL TABLET 176477 ZOLPIDEM TARTRATE Inactive METFORMIN HCL 500 MG ORAL TABLET 1 PO BID METFORMIN HCL 500 MG ORAL TABLET 397994 METFORMIN HCL Inactive REGLAN 10 MG ORAL TABLET 1 po TID PRN Nausea REGLAN 10 MG ORAL TABLET 454855 METOCLOPRAMIDE HCL Inactive MECLIZINE HCL 25 MG ORAL TABLET CHEWABLE 1 four times a day as needed for dizziness MECLIZINE HCL 25 MG ORAL TABLET CHEWABLE 230936 MECLIZINE HCL Inactive SOMA 350 MG ORAL TABLET 1 po q 6 hours prn spasm SOMA 350 MG ORAL TABLET 240556 CARISOPRODOL Inactive MELATONIN 5 MG ORAL TABLET Take one by mouth daily MELATONIN 5 MG ORAL TABLET 093526 MELATONIN Inactive MULTIVITAMINS TABS Take one by mouth daily MULTIVITAMINS TABS MULTIPLE VITAMIN Inactive LORTAB 5-500 MG ORAL TABLET 1/2 to 1 tablet by mouth every 4 hours as needed for pain LORTAB 5-500 MG ORAL TABLET 297320 HYDROCODONE-ACETAMINOPHEN Inactive XANAX 0.5 MG ORAL TABLET 1 tablet every 6 hrs prn XANAX 0.5 MG ORAL TABLET 015058 ALPRAZOLAM Inactive AUGMENTIN 875-125 MG ORAL TABLET 1 tab by mouth twice daily with food AUGMENTIN 875-125 MG ORAL TABLET 347693 AMOXICILLIN-POT CLAVULANATE Inactive ALPRAZOLAM 0.5 MG ORAL TABLET 1 tab every 6hrs as needed ALPRAZOLAM 0.5 MG ORAL TABLET 210517 ALPRAZOLAM Inactive SPIRONOLACTONE 25 MG ORAL TABLET 0.5 tablet by mouth daily 09/09 SPIRONOLACTONE 25 MG ORAL TABLET 930451 SPIRONOLACTONE Inactive ACCU-CHEK KEYONA PLUS w/Device KIT [...] times daily as needed ACCU-CHEK FASTCLIX LANCETS 28623504027 LANCETS Inactive TRAMADOL HCL 50 MG ORAL TABLET 1 tablets every 6 hours as needed for pain TRAMADOL HCL 50 MG ORAL TABLET 705660 TRAMADOL HCL Inactive VENLAFAXINE HCL 75 MG ORAL TABLET 1 po BID VENLAFAXINE HCL 75 MG ORAL TABLET 323606 VENLAFAXINE HCL Inactive HYDROCODONE-ACETAMINOPHEN 5-500 MG ORAL TABLET take one po Q 4-6 hours prn HYDROCODONE-ACETAMINOPHEN 5-500 MG ORAL TABLET 393153 HYDROCODONE-ACETAMINOPHEN Inactive LORTAB 5-500 MG ORAL TABLET 1/2 to 1 tablet by mouth every 4 hours as needed for pain LORTAB 5-500 MG ORAL TABLET 288468 HYDROCODONE-ACETAMINOPHEN Inactive LAMISIL 250 MG ORAL TABLET 1 po qd LAMISIL 250 MG ORAL TABLET 754315 TERBINAFINE HCL Inactive VENLAFAXINE HCL 37.5 MG ORAL TABLET 1 po BID VENLAFAXINE HCL 37.5 MG ORAL TABLET 325504 VENLAFAXINE HCL Inactive CIPRO 500 MG ORAL TABLET 1 tablet by mouth twice daily CIPRO 500 MG ORAL TABLET 428095 CIPROFLOXACIN HCL Inactive VENLAFAXINE HCL 75 MG ORAL TABLET 1 po BID VENLAFAXINE HCL 75 MG ORAL TABLET 062045 VENLAFAXINE HCL Inactive SIMVASTATIN 40 MG ORAL TABLET Take one by mouth daily SIMVASTATIN 40 MG ORAL TABLET 520093 SIMVASTATIN Inactive OMEPRAZOLE 20 MG ORAL TABLET DELAYED RELEASE 1 PO 30 MIN BEFORE 1ST MEAL 2010 OMEPRAZOLE 20 MG ORAL TABLET DELAYED RELEASE 431099 OMEPRAZOLE Inactive FENOFIBRATE 145 MG ORAL TABLET 1 po qd FENOFIBRATE 145 MG ORAL TABLET 758679 FENOFIBRATE Inactive BACTRIM DS 800-160 MG ORAL TABLET 1 bid x 14 day start 09-28-13 BACTRIM DS 800-160 MG ORAL TABLET 939596 SULFAMETHOXAZOLE- TRIMETHOPRIM Inactive B-12 100 MCG ORAL TABLET Take one by mouth daily B-12 100 MCG ORAL TABLET CYANOCOBALAMIN Inactive GABAPENTIN 100 MG ORAL CAPSULE 1 po bid GABAPENTIN 100 MG ORAL CAPSULE 496537 GABAPENTIN Inactive HYDROCODONE-ACETAMINOPHEN 5-325 MG ORAL TABLET 1 tab by mouth every 6 hours as needed for pain HYDROCODONE-ACETAMINOPHEN 5-325 MG ORAL TABLET 108447 HYDROCODONE-ACETAMINOPHEN Inactive CIPRO 500 MG ORAL TABLET 1 bid x 14 days start 09-28-13 CIPRO 500 MG ORAL TABLET 144308 CIPROFLOXACIN HCL Inactive ALIGN 4 MG ORAL [...] SODIUM 50 MG ORAL TABLET DELAYED RELEASE 812615 DICLOFENAC SODIUM Inactive PREDNISONE 20 MG ORAL TABLET 2 tablets once daily for 2 days, then 1 tablet once daily for 2 days PREDNISONE 20 MG ORAL TABLET 308548 PREDNISONE Inactive TRUEDRAW LANCING DEVICE Test twice a day dx 250.0 TRUEDRAW LANCING DEVICE LANCET DEVICES Inactive TRUERESULT BLOOD GLUCOSE w/Device KIT test blood sugar twice daily dx 250.00 TRUERESULT BLOOD GLUCOSE w/Device KIT BLOOD GLUCOSE MONITORING SUPPL Inactive FLONASE 50 MCG/ACT NASAL SUSPENSION 1 spray each nostril twice daily until bottle empty FLONASE 50 MCG/ACT NASAL SUSPENSION 1867030 FLUTICASONE PROPIONATE Inactive VENTOLIN HFA 108 (90 Base) MCG/ACT INHALATION AEROSOL SOLUTION 1-2 puffs every 4 hours if needed for cough/congestion VENTOLIN HFA 108 (90 Base) MCG/ACT INHALATION AEROSOL SOLUTION ALBUTEROL SULFATE Inactive REQUIP 2 MG ORAL TABLET Take one tablet at bedtime prn REQUIP 2 MG ORAL TABLET 451300 ROPINIROLE HCL Inactive SUPER B COMPLEX/VITAMIN C ORAL TABLET 1 qd SUPER B COMPLEX/VITAMIN C ORAL TABLET 75963860298 B COMPLEX-C Inactive TRUEDRAW LANCING DEVICE test blood sugar twice daily dx: 250.00 TRUEDRAW LANCING DEVICE LANCET DEVICES Inactive TRUETEST TEST IN VITRO STRIP test blood sugar twice daily. DX 250.0 TRUETEST TEST IN VITRO STRIP GLUCOSE BLOOD Inactive CYCLOBENZAPRINE HCL 10 MG ORAL TABLET 1 po TID PRN Muscle Spasm CYCLOBENZAPRINE HCL 10 MG ORAL TABLET 389240 CYCLOBENZAPRINE HCL Inactive DICLOFENAC SODIUM 50 MG ORAL TABLET DELAYED RELEASE 1 po BID PRN Pain DICLOFENAC SODIUM 50 MG ORAL TABLET DELAYED RELEASE 720551 DICLOFENAC SODIUM Inactive DICLOFENAC SODIUM 75 MG ORAL TABLET DELAYED RELEASE 1 po BID PRN Pain DICLOFENAC SODIUM 75 MG ORAL TABLET DELAYED RELEASE 631845 DICLOFENAC SODIUM Inactive TRIAMCINOLONE ACETONIDE 0.1 % EXTERNAL OINTMENT Apply to affected areas TID for up to 2 weeks TRIAMCINOLONE ACETONIDE 0.1 % EXTERNAL OINTMENT 0363836 TRIAMCINOLONE ACETONIDE Inactive PREDNISONE 20 MG ORAL TABLET 2 tabs daily for 3 days, 1 tab daily for 3 days, 1/2 tab daily for 2 days PREDNISONE 20 MG ORAL TABLET 449949 PREDNISONE Inactive PREDNISONE 20 MG ORAL TABLET 2 tabs daily for 3 days, 1 tab daily for 3 days, 1/2 tab daily for 2 days PREDNISONE 20 MG ORAL TABLET 060922 PREDNISONE Inactive BACTRIM DS 800-160 MG ORAL TABLET 1 po BID x 7 days BACTRIM DS 800-160 MG ORAL TABLET 823840 SULFAMETHOXAZOLE-TRIMETHOPRIM Inactive ZITHROMAX 250 MG ORAL TABLET 2 po today, then 1 po q days 2-5 ZITHROMAX 250 MG ORAL TABLET 821122 AZITHROMYCIN Inactive Advance Directives Directive Description Start Date DISCUSSED WITH PATIENT -- NO DECISION MADE Immunizations Vaccine Administration Date Value Standard Description Seasonal influenza vaccine, injectable, containing preservative, for > 3 years old (Afluria, FluLaval, Fluzone, Fluvirin, Fluarix, Agriflu(>=18 yo)) Fluzone (>3 yrs.) [[id number]] Influenza, seasonal, injectable influenza immunization (Flu Vax) has been administered 02/22/2012 influenza virus vaccine, unspecified formulation Seasonal influenza vaccine, injectable, containing preservative, for > 3 years old (Afluria, FluLaval, Fluzone, Fluvirin, Fluarix, Agriflu(>=18 yo)) Fluzone (>3 yrs.) [[id number]] Influenza, seasonal, injectable Vital Signs Date Name [...] ... - Chemistry sodium, serum 141 mmol/L 740-739 1786/01/16 carbon dioxide, venous blood 28.3 mmol/L 21.0-32.0 [...] 6.7 % 4.3-6.0 cholesterol, serum 106 mg/dL 683-928 0756/01/16 triglyceride, serum, fasting 173 mg/dL 30-200 HDL [...] A1c - Chemistry cholesterol, serum 135 mg/dL 339-470 0968/05/17 HDL cholesterol, serum 41 mg/dL > OR=46 triglyceride, serum, fasting 206 mg/dL <150 LDL cholesterol, serum 53 MG/DL (CALC) mg/dL <130 cholesterol/HDL ratio, serum 3.3 (calc) < OR=5.0 Lab Report: HGBA1C - Chemistry hemoglobin A1C, blood, as % of total hemoglobin 6.5 % 4.3-6.0 Encounters Code Encounter Date Provider Facility CPT-70695 Level 4 Est. Patient 13:42:02 ELEMENTARY PRINCIPAL Tu Landeros MD [facility] CPT-44415 Level 3 Est. Patient 14:20:36 CDT Tu Landeros MD [facility] CPT-07859 Level 4 Est. Patient 14:28:34 CDT Tu Landeros MD [facility] CPT-32641 Level 3 Est. Patient 13:33:09 CDT Tu Landeros MD [facility] CPT-12009 Level 4 Est. Patient 14:29:21 CDT Tu Landeros MD [facility] CPT-92790 Level 4 Est. Patient 09:08:17 ELEMENTARY PRINCIPAL Tu Landeros MD [facility] CPT-23422 Level 4 Est. Patient 14:40:19 CDT Tu Landeros MD [facility] CPT-30095 Level 4 Est. Patient 14:06:04 ELEMENTARY PRINCIPAL Tu Landeros MD [facility] CPT-49201 Level 3 Est. Patient 14:05:18 ELEMENTARY PRINCIPAL Tu Landeros MD [facility] CPT-54979 Level 3 Est. Patient 10:06:54 ELEMENTARY PRINCIPAL Miranda Suresh APRN [facility] CPT-08128 Level 4 Est. Patient 13:50:18 ELEMENTARY PRINCIPAL Tu Landeros MD [facility] CPT-92173 Level 3 Est. Patient 10:30:04 CDT Tu Landeros MD [facility] CPT-62331 Level 4 Est. Patient 11:03:38 CDT Tu Landeros MD [facility] CPT-29616 Level 3 Est. Patient 10:20:44 CDT Fab Morales DO [facility] CPT-76129 Level 4 Est. Patient 14:38:57 CDT Tu Landeros MD [facility] CPT-29753 Level 4 Est. Patient 14:27:39 ELEMENTARY PRINCIPAL Tu Landeros MD [facility] CPT-50577 Level 4 Est. Patient 09:45:25 CDT Tu Landeros MD [facility] CPT-46931 Level 4 Est. Patient 09:05:20 ELEMENTARY PRINCIPAL Tu Landeros MD [facility] CPT-96655 Level 4 Est. Patient 14:09:06 CDT Tu Landeros MD [facility] CPT-70146 Level 3 Est. Patient 13:36:54 CDT Tu Landeros MD [facility] CPT-30718 Level 3 Est. Patient 08:59:14 CDT Tu Landeros MD [facility] CPT-38661 Level 3 Est. Patient 13:48:35 CDT Fab Morales DO [facility] CPT-62689 Level 4 Est. Patient 10:05:48 CDT Tu Landeros MD [facility] CPT-51551 Level 3 Est. Patient 13:38:42 CDT Marek BANKS [facility] CPT-10503 Level 5 Est. Patient 08:08:39 CDT Jerrica FRANCIS [facility] CPT-97238 Level 4 Est. Patient 14:23:38 CDT Tu Landeros MD [facility] CPT-91574 Level 3 Est. Patient 11:44:04 CDT Tu Landeros MD [facility] CPT-60287 Level 3 Est. Patient 11:03:20 ELEMENTARY PRINCIPAL Tu Landeros MD [facility] CPT-67030 Level 3 Est. Patient 11:03:14 ELEMENTARY PRINCIPAL Tu Landeros MD [facility] CPT-89647 Level 3 Est. Patient 12:42:49 CDT Tu Landeros MD [facility] CPT-17604 Level 3 Est. Patient 11:52:06 CDT Tu Landeros MD [facility] CPT-61092 Level 3 Est. Patient 13:58:11 CDT Tu Landeros MD [facility] CPT-51712 Level 3 Est. Patient 17:50:07 CDT Fab Morales DO [facility] CPT-43420 Level 3 Est. Patient 12:06:29 CDT Elvira Cervantes MD, PhD [facility] CPT-49743 Level 3 Est. Patient 15:50:32 CDT Tu Landeros MD [facility] CPT-56699 Level 4 Est. Patient 16:08:29 CDT Tu Landeros MD [facility] CPT-22673 Level 3 Est. Patient 16:04:19 CDT Tu Landeros MD [facility] CPT-90614 Level 3 Est. Patient 11:22:30 ELEMENTARY PRINCIPAL Tu Landeros MD [facility] CPT-52674 Level 4 Est. Patient 16:24:02 ELEMENTARY PRINCIPAL Tu Landeros MD [facility] CPT-45560 Level 3 Est. Patient 17:21:23 ELEMENTARY PRINCIPAL Tu Landeros MD [facility] Procedures Code Procedure Name Date Entry Date Standard Description CPT-61488 Shoulder, right, comp min 2V - XRAY USE ONLY 13:50:22 CDT CPT-G0009 Administration of Pneumococcal Vaccine 15:08:26 CDT CPT-82657 Prevnar 13 Intramuscular Suspension 15:08:26 CDT 10/08 CPT-G0439 [facility] Annual Wellness Exam 14:29:22 CDT CPT-21127 Venipuncture Draw Fee 13:15:35 CDT CPT-60995 Magnesium - LAB USE ONLY 11:14:20 ELEMENTARY PRINCIPAL CPT-58791 Lipid - LAB USE ONLY 11:14:20 ELEMENTARY PRINCIPAL CPT-09809 HGBA1C - LAB USE ONLY 11:14:20 ELEMENTARY PRINCIPAL CPT-79082 CMP - LAB USE ONLY 11:14:19 ELEMENTARY PRINCIPAL CPT-78270 CBC - LAB USE ONLY 11:14:19 ELEMENTARY PRINCIPAL CPT-83461 Venipuncture Draw Fee 11:14:18 ELEMENTARY PRINCIPAL CPT-01251 First Vx - Ix admin for Medicare patients 16:46:52 CDT CPT-73861 Fluzone Preservative Free Intramuscular Suspension 16:46 :51 CDT CPT-48636 CBC - LAB USE ONLY 17:14:46 CDT CPT-66497 HGBA1C - LAB USE ONLY 17:14:46 CDT CPT-41746 Venipuncture Draw Fee 17:14:46 CDT CPT-G0438 Initial Annual Wellness Exam 14:13:04 CDT CPT-37018 Breathing Tx 10:06:54 ELEMENTARY PRINCIPAL CPT-63924 Postop F/U Visit 10:02:45 CDT CPT-LR Lesion Removal 09:02:56 CDT CPT-JTINJ Asp/Joint Injection 15:51:27 ELEMENTARY PRINCIPAL CPT-OV Office Visit 15:52:02 ELEMENTARY PRINCIPAL CPT-OV Office Visit 15:45:11 CDT CPT-000 Give Zostavax 14:09:06 CDT CPT-57994 Administration single or combination vaccine inc oral 15 :19:04 CDT CPT-10738 Zoster Vaccine (Zostavax) 15:19:04 CDT CPT-27503 Administration single or combination vaccine inc oral 20 :51:03 CDT CPT-00256 Influenza split virus > age 3 20:51:03 CDT CPT-49875 No Charge Offi Visit 14:52:03 CDT CPT-OV Office Visit 14:57:43 CDT CPT-OV Office Visit 15:22:32 CDT CPT-74899 Administration single or combination vaccine inc oral 11 :33:15 CDT CPT-38843 Influenza split virus > age 3 11:33:15 CDT
--- OUTSIDE RECORDS SUMMARY | 2018-04-25 18:49 | XMS REPORT | Clinical Summary ---
Author Author Admin, SACHI Organization [employer] Address Unknown Phone Unavailable Allergies, Adverse Reactions, [...] blood sugar BID Dx: E11.9 GLUCOSE BLOOD 07867007442 Active Tu Landeros MD Active TRUE METRIX AIR GLUCOSE METER W/DEVICE KIT Test blood glucose BID Dx: E11.9 BLOOD GLUCOSE MONITORING SUPPL 69847438112 Active Tu Landeros MD Active TRUETEST TEST INVITR STRP test blood sugar twice daily. DX 250.0 GLUCOSE BLOOD 43754335383 No Longer Active Mirna Stanley LPN Active TRUEDRAW LANCING DEVICE MISC test blood sugar twice daily dx: 250.00 LANCET DEVICES 95725320367 No Longer Active Mirna Stanley LPN Active ENALAPRIL MALEATE 20 MG TABS 2 po qd ENALAPRIL MALEATE 07034818828 Active Tu Landeros MD Active SUPER B COMPLEX/VITAMIN C TABS 1 qd B COMPLEX-C 68210338237 No Longer Active Tu Landeros MD Active ASPIRIN EC 81 MG ORAL TBEC 1 po qd ASPIRIN 80571806935 Active Tu Landeros MD Active GLUCOSAMINE 500 MG TABS 2 po qd GLUCOSAMINE Active Tu Landeros MD Active SIMVASTATIN 40 MG TABS 0.5 po qHS SIMVASTATIN 09841736263 Active Tu Landeros MD Active FISH OIL 1000 MG CAPS 1 po qd OMEGA-3 FATTY ACIDS 28528159626 Active Tu Landeros MD Active METFORMIN HCL 1000 MG TABS 1 po BID METFORMIN HCL 31418119203 Active Tu Landeros MD Active KLOR-CON 10 10 MEQ CR-TABS 2 po qd POTASSIUM CHLORIDE 78014064696 Active Tu Landeros MD Active FUROSEMIDE 40 MG TAB 1 po qd FUROSEMIDE 22965629874 Active Tu Landeros MD Active REQUIP 2 MG ORAL TABS 1 po qHS PRN Restless legs ROPINIROLE HCL 54188811349 Active Tu Landeros MD Active VENLAFAXINE HCL 37.5 MG TABS 1 po BID VENLAFAXINE HCL 63377005899 Active Tu Landeros MD Active GABAPENTIN 100 MG CAPS 1 po BID GABAPENTIN 29077308654 Active Tu Landeros MD Active REQUIP 2 MG TABS Take one tablet at bedtime prn ROPINIROLE HCL 97056005263 No Longer Active Tu Landeros MD Active VENTOLIN HFA 108 (90 BASE) MCG/ACT AERS 1-2 puffs every 4 hours if needed for cough/congestion ALBUTEROL SULFATE 89078936035 No Longer Active Ambika Aden APRN Active ZITHROMAX 250 MG TAB 2 po today, then 1 po q days 2-5 AZITHROMYCIN 10945608411 No Longer Active Miranda Suresh APRN Active FLONASE 50 MCG/ACT SUSP 1 spray each nostril twice daily until bottle empty FLUTICASONE PROPIONATE 32678332334 No Longer Active Tu Landeros MD Active COLACE 100 MG CAP 1 po BID PRN Constipation DOCUSATE SODIUM 07858779210 Active Tu Landeros MD Active TRUERESULT BLOOD GLUCOSE W/DEVICE KIT test blood sugar twice daily dx 250.00 BLOOD GLUCOSE MONITORING SUPPL 48391403335 No Longer Active Tu Landeros MD Active TRUEDRAW LANCING DEVICE MISC Test twice a day dx 250.0 LANCET DEVICES 65188719658 No Longer Active Tu Landeros MD Active PREDNISONE 20 MG TAB 2 tablets once daily for 2 days, then 1 tablet once daily for 2 days PREDNISONE 67721619572 No Longer Active Tu Landeros MD Active DICLOFENAC SODIUM 50 MG TBEC 1 tablet by mouth three times a day as needed DICLOFENAC SODIUM 91085705460 No Longer Active Fab Morales DO Active EMBRACE BLOOD GLUCOSE TEST STRP test blood sugar twice daily DX 250.0 2014 GLUCOSE BLOOD 34510448703 No Longer Active Tu Landeros MD Active TRUETEST TEST STRP test blood sugar three times daily dx: 250.00 GLUCOSE BLOOD 32384173201 No Longer Active Suzebianca VOGEL Active TRUERESULT BLOOD GLUCOSE W/DEVICE KIT use to test blood sugar tid dx: 250.00 BLOOD GLUCOSE MONITORING SUPPL 25840666698 No Longer Active Suze Corey VOGEL Active ALIGN 4 MG CAPS 1 tid PROBIOTIC PRODUCT 32856996272 No Longer Active Shaun Sy MD Active CIPRO 500 MG TABS 1 bid x 14 days start 09-28-13 CIPROFLOXACIN HCL 16798098988 No Longer Active Shaun Sy MD Active TRAMADOL HCL 50 MG TABS 1-2 tablets every 6 hours as needed for pain TRAMADOL HCL 42225218080 Active Lesli Kellogg APRN Active HYDROCODONE-ACETAMINOPHEN 5-325 MG TABS 1 tab by mouth every 6 hours as needed for pain HYDROCODONE-ACETAMINOPHEN 40242770201 No Longer Active Tu Landeros MD Active OMEPRAZOLE 20 MG CPDR 1 po q a.m. OMEPRAZOLE 36940289384 Active Lesli Fatumashahid PATEL Active GABAPENTIN 100 MG CAPS 1 po bid GABAPENTIN 45208080034 No Longer Active Tu Landeros MD Active B-12 100 MCG TABS Take one by mouth daily CYANOCOBALAMIN 48065722922 No Longer Active Tu Landeros MD Active BACTRIM DS 800-160 MG TABS 1 bid x 14 day start 09-28-13 SULFAMETHOXAZOLE-TRIMETHOPRIM 73845373396 No Longer Active Tu Landeros MD Active CARVEDILOL 12.5 MG TABS 1 po BID CARVEDILOL 33782453396 Active Tu Landeros MD Active TRILIPIX 135 MG CPDR 1 q hs CHOLINE FENOFIBRATE 45338679301 Active Tu Landeros MD Active FENOFIBRATE 145 MG TABS 1 po qd FENOFIBRATE 67999250963 No Longer Active JASPREET Perez Active OMEPRAZOLE 20 MG TBEC 1 PO 30 MIN BEFORE 1ST MEAL OMEPRAZOLE 17096932376 No Longer Active JASPREET Perez Active SIMVASTATIN 40 MG TABS Take one by mouth daily SIMVASTATIN 13569271657 No Longer Active JASPREET Perez Active VENLAFAXINE HCL 75 MG TABS 1 po BID VENLAFAXINE HCL 85843509637 No Longer Active JASPREET Perez Active CIPRO 500 MG TAB 1 tablet by mouth twice daily CIPROFLOXACIN HCL 11265019576 No Longer Active Tu Landeros MD Active VENLAFAXINE HCL 37.5 MG TABS 1 po BID VENLAFAXINE HCL 28039573659 No Longer Active Suze VOGEL Active LAMISIL 250 MG TAB 1 po qd TERBINAFINE HCL 72774749380 No Longer Active Tu Landeros MD Active LORTAB 5 5-500 MG TABS 1/2 to 1 tablet by mouth every 4 hours as needed for pain HYDROCODONE-ACETAMINOPHEN 28161784345 No Longer Active Tu Landeros MD Active HYDROCODONE-ACETAMINOPHEN 5-500 MG TABS take one po Q 4-6 hours prn HYDROCODONE-ACETAMINOPHEN 78317069340 No Longer Active Tu Landeros MD Active BACTRIM DS 800-160 MG TABS 1 po BID x 7 days SULFAMETHOXAZOLE-TRIMETHOPRIM 51203336709 No Longer Active Tu Landeros MD Active VENLAFAXINE HCL 75 MG TABS 1 po BID VENLAFAXINE HCL 11328837508 No Longer Active Elvira Cervantes MD PhD Active TRAMADOL HCL 50 MG TABS 1 tablets every 6 hours as needed for pain TRAMADOL HCL 14485623862 No Longer Active Tu Landeros MD Active ACCU-CHEK FASTCLIX LANCETS MISC Use to check bloodsugar three times daily as needed LANCETS 62750106261 No Longer Active Tu Landeros MD Active ACCU-CHEK KEYONA PLUS STRP Use for testing bloodsugars three times daily as needed GLUCOSE BLOOD 39702212085 No Longer Active Tu Landeros MD Active ACCU-CHEK KEYONA PLUS W/DEVICE KIT Use for testing bloodsugars three times daily as needed BLOOD GLUCOSE MONITORING SUPPL 00387399716 No Longer Active Tu Landeros MD Active SPIRONOLACTONE 25 MG TAB 0.5 tablet by mouth daily SPIRONOLACTONE 15285975546 No Longer Active Tu Landeros MD Active ALPRAZOLAM 0.5 MG TABS 1 tab every 6hrs as needed ALPRAZOLAM 49419181884 No Longer Active Tu Landeros MD Active AUGMENTIN 875-125 MG TAB 1 tab by mouth twice daily with food AMOXICILLIN-POT CLAVULANATE 99838445762 No Longer Active Tu aLnderos MD Active PREDNISONE 20 MG TAB 2 tabs daily for 3 days, 1 tab daily for 3 days, 1/2 tab daily for 2 days PREDNISONE 39176543697 No Longer Active Tu Landeros MD Active XANAX 0.5 MG TABS 1 tablet every 6 hrs prn ALPRAZOLAM 62249704517 No Longer Active Tu Landeros MD Active PREDNISONE 20 MG TAB 2 tabs daily for 3 days, 1 tab daily for 3 days, 1/2 tab daily for 2 days PREDNISONE 95492836028 No Longer Active Tu Landeros MD Active TRIAMCINOLONE ACETONIDE 0.1 % OINT Apply to affected areas TID for up to 2 weeks TRIAMCINOLONE ACETONIDE 67845659136 No Longer Active Tu Landeros MD Active LORTAB 5 5-500 MG TABS 1/2 to 1 tablet by mouth every 4 hours as needed for pain HYDROCODONE-ACETAMINOPHEN 44872070851 No Longer Active Tu Landeros MD Active MULTIVITAMINS TABS Take one by mouth daily MULTIPLE VITAMIN 01959945341 No Longer Active Tu Landeros MD Active MELATONIN 5 MG TABS Take one by mouth daily MELATONIN 23893671665 No Longer Active Tu Landeros MD Active SOMA 350 MG TAB 1 po q 6 hours prn spasm CARISOPRODOL 02526228437 No Longer Active Tu Landeros MD Active MECLIZINE HCL 25 MG CHEW TAB 1 four times a day as needed for dizziness 08/05 MECLIZINE HCL 48450748233 No Longer Active Fab Morales DO Active ANGEL BREEZE 2 TEST DISK test tid prn GLUCOSE BLOOD 35082824334 No Longer Active Negra Scott RN Active REGLAN 10 MG TAB 1 po TID PRN Nausea METOCLOPRAMIDE HCL 44058572294 No Longer Active Tu Landeros MD Active METFORMIN HCL 500 MG TABS 1 PO BID METFORMIN HCL 57445744047 No Longer Active Tu Landeros MD Active AMBIEN 10 MG TAB 1 tab by mouth at bedtime as needed for sleep ZOLPIDEM TARTRATE 08253272909 No Longer Active Tu Landeros MD Active FLUOXETINE HCL 40 MG CAPS 1 po q day FLUOXETINE HCL 09719101984 No Longer Active Mayra Terry Active TRILIPIX 135 MG CPDR 1 po qd CHOLINE FENOFIBRATE 56905627617 No Longer Active Tu Landeros MD Active AMBIEN 10 MG TAB 1 tab by mouth at bedtime as needed for sleep AMBIEN 10 MG TAB 265500 ZOLPIDEM TARTRATE Inactive METFORMIN HCL 500 MG TABS 1 PO BID METFORMIN HCL 500 MG TABS 716488 METFORMIN HCL Inactive REGLAN 10 MG TAB 1 po TID PRN Nausea REGLAN 10 MG TAB 255202 METOCLOPRAMIDE HCL Inactive MECLIZINE HCL 25 MG CHEW TAB 1 four times a day as needed for dizziness 08/05 MECLIZINE HCL 25 MG CHEW TAB 629084 MECLIZINE HCL Inactive SOMA 350 MG TAB 1 po q 6 hours prn spasm SOMA 350 MG TAB 369541 CARISOPRODOL Inactive MELATONIN 5 MG TABS Take one by mouth daily MELATONIN 5 MG TABS 925546 MELATONIN Inactive MULTIVITAMINS TABS Take one by mouth daily MULTIVITAMINS TABS MULTIPLE VITAMIN Inactive LORTAB 5 5-500 MG TABS 1/2 to 1 tablet by mouth every 4 hours as needed for pain LORTAB 5 5-500 MG TABS HYDROCODONE- ACETAMINOPHEN Inactive XANAX 0.5 MG TABS 1 tablet every 6 hrs prn XANAX 0.5 MG TABS 711021 ALPRAZOLAM Inactive AUGMENTIN 875-125 MG TAB 1 tab by mouth twice daily with food AUGMENTIN 875-125 MG TAB 680671 AMOXICILLIN-POT CLAVULANATE Inactive ALPRAZOLAM 0.5 MG TABS 1 tab every 6hrs as needed ALPRAZOLAM 0.5 MG TABS 346496 ALPRAZOLAM Inactive SPIRONOLACTONE 25 MG TAB 0.5 tablet by mouth daily SPIRONOLACTONE 25 MG TAB 422743 SPIRONOLACTONE Inactive ACCU-CHEK KEYONA PLUS W/DEVICE KIT Use for testing bloodsugars three times daily as needed ACCU-CHEK KEYONA PLUS W/DEVICE KIT BLOOD GLUCOSE MONITORING SUPPL Inactive ACCU-CHEK KEYONA PLUS STRP Use for testing bloodsugars three times daily as needed ACCU-CHEK KEYONA PLUS STRP GLUCOSE BLOOD Inactive ACCU-CHEK FASTCLIX LANCETS MISC Use to check bloodsugar three times daily as needed ACCU-CHEK FASTCLIX LANCETS MISC 90641453679 LANCETS Inactive TRAMADOL HCL 50 MG TABS 1 tablets every 6 hours as needed for pain TRAMADOL HCL 50 MG TABS 836325 TRAMADOL HCL Inactive VENLAFAXINE HCL 75 MG TABS 1 po BID VENLAFAXINE HCL 75 MG TABS 024737 VENLAFAXINE HCL Inactive HYDROCODONE-ACETAMINOPHEN 5-500 MG TABS take one po Q 4-6 hours prn HYDROCODONE-ACETAMINOPHEN 5-500 MG TABS HYDROCODONE- ACETAMINOPHEN Inactive LORTAB 5 5-500 MG TABS 1/2 to 1 tablet by mouth every 4 hours as needed for pain LORTAB 5 5-500 MG TABS HYDROCODONE- ACETAMINOPHEN Inactive LAMISIL 250 MG TAB 1 po qd LAMISIL 250 MG TAB 271004 TERBINAFINE HCL Inactive VENLAFAXINE HCL 37.5 MG TABS 1 po BID VENLAFAXINE HCL 37.5 MG TABS 226791 VENLAFAXINE HCL Inactive CIPRO 500 MG TAB 1 tablet by mouth twice daily CIPRO 500 MG TAB 809478 CIPROFLOXACIN HCL Inactive VENLAFAXINE HCL 75 MG TABS 1 po BID VENLAFAXINE HCL 75 MG TABS 580816 VENLAFAXINE HCL Inactive SIMVASTATIN 40 MG TABS Take one by mouth daily SIMVASTATIN 40 MG TABS 490413 SIMVASTATIN Inactive OMEPRAZOLE 20 MG TBEC 1 PO 30 MIN BEFORE 1ST MEAL OMEPRAZOLE 20 MG TBEC 073947 OMEPRAZOLE Inactive FENOFIBRATE 145 MG TABS 1 po qd FENOFIBRATE 145 MG TABS 415901 FENOFIBRATE Inactive BACTRIM DS 800-160 MG TABS 1 bid x 14 day start 09-28-13 BACTRIM DS 800-160 MG TABS 148413 SULFAMETHOXAZOLE-TRIMETHOPRIM Inactive B-12 100 MCG TABS Take one by mouth daily B-12 100 MCG TABS CYANOCOBALAMIN Inactive GABAPENTIN 100 MG CAPS 1 po bid GABAPENTIN 100 MG CAPS 157543 GABAPENTIN Inactive HYDROCODONE-ACETAMINOPHEN 5-325 MG TABS 1 tab by mouth every 6 hours as needed for pain HYDROCODONE-ACETAMINOPHEN 5-325 MG TABS 016553 HYDROCODONE-ACETAMINOPHEN Inactive CIPRO 500 MG TABS 1 bid x 14 days start 09-28-13 CIPRO 500 MG TABS 094606 CIPROFLOXACIN HCL Inactive ALIGN 4 MG CAPS [...] as needed DICLOFENAC SODIUM 50 MG [facility] 782530 DICLOFENAC SODIUM Inactive PREDNISONE 20 MG TAB 2 tablets once daily for 2 days, then 1 tablet once daily for 2 days PREDNISONE 20 MG TAB 248425 PREDNISONE Inactive TRUEDRAW LANCING DEVICE MISC Test twice a day dx 250.0 TRUEDRAW LANCING DEVICE MISC LANCET DEVICES Inactive TRUERESULT BLOOD GLUCOSE W/DEVICE KIT test blood sugar twice daily dx 250.00 TRUERESULT BLOOD GLUCOSE W/DEVICE KIT BLOOD GLUCOSE MONITORING SUPPL Inactive FLONASE 50 MCG/ACT SUSP 1 spray each nostril twice daily until bottle empty FLONASE 50 MCG/ACT SUSP 5184209 FLUTICASONE PROPIONATE Inactive VENTOLIN HFA 108 (90 BASE) MCG/ACT AERS 1-2 puffs every 4 hours if needed for cough/congestion VENTOLIN HFA 108 (90 BASE) MCG/ACT AERS ALBUTEROL SULFATE Inactive REQUIP 2 MG TABS Take one tablet at bedtime prn REQUIP 2 MG TABS 030574 ROPINIROLE HCL Inactive SUPER B COMPLEX/VITAMIN C TABS 1 qd SUPER B COMPLEX/ VITAMIN C TABS 84571254897 B COMPLEX-C Inactive TRUEDRAW LANCING DEVICE MISC test blood sugar twice daily dx: 250.00 TRUEDRAW LANCING DEVICE MISC LANCET DEVICES Inactive TRUETEST TEST INVITR STRP test blood sugar twice daily. DX 250.0 TRUETEST TEST INVITR STRP GLUCOSE BLOOD Inactive TRIAMCINOLONE ACETONIDE 0.1 % OINT Apply to affected areas TID for up to 2 weeks TRIAMCINOLONE ACETONIDE 0.1 % OINT 7059271 TRIAMCINOLONE ACETONIDE Inactive PREDNISONE 20 MG TAB 2 tabs daily for 3 days, 1 tab daily for 3 days, 1/2 tab daily for 2 days PREDNISONE 20 MG TAB 567143 PREDNISONE Inactive PREDNISONE 20 MG TAB 2 tabs daily for 3 days, 1 tab daily for 3 days, 1/2 tab daily for 2 days PREDNISONE 20 MG TAB 175389 PREDNISONE Inactive BACTRIM DS 800-160 MG TABS 1 po BID x 7 days BACTRIM DS 800-160 MG TABS 715705 SULFAMETHOXAZOLE-TRIMETHOPRIM Inactive ZITHROMAX 250 MG TAB 2 po today, then 1 po q days 2-5 ZITHROMAX 250 MG TAB 3561509 AZITHROMYCIN Inactive Advance Directives Directive Description Start Date DISCUSSED WITH PATIENT -- NO DECISION MADE Immunizations Vaccine Administration Date Value Standard Description Seasonal influenza vaccine, injectable, containing preservative, for > 3 years old (Afluria, FluLaval, Fluzone, Fluvirin, Fluarix, Agriflu(>=18 yo)) Fluzone (>3 yrs.) [[id number]] Influenza, seasonal, injectable influenza immunization (Flu Vax) has been administered 02/22/2012 influenza virus vaccine, unspecified formulation Seasonal influenza vaccine, injectable, containing preservative, for > 3 years old (Afluria, FluLaval, Fluzone, Fluvirin, Fluarix, Agriflu(>=18 yo)) Fluzone (>3 yrs.) [[id number]] Influenza, seasonal, injectable Vital Signs Date Name [...] Magnesium - Chemistry sodium, serum 143 mmol/L 229-015 0784/01/10 carbon dioxide, venous blood 28.0 mmol/L 21.0-32.0 potassium, serum 4.5 mmol/L 3.5-5.2 chloride, serum 104 mmol/L 98-107 blood glucose 158 mg/dL 65-110 urea nitrogen, blood 23 mg/dL 7-18 creatinine, serum 1.06 mg/dL 0.55-1.30 alanine aminotransferase (SGPT), serum 42 U/L 12-78 aspartate aminotransferase (SGOT), serum 32 U/L 15-37 calcium, serum 9.3 mg/dL 8.5-10.1 bilirubin, serum, total 0.20 mg/dL 0.00-1.00 cholesterol, serum 177 mg/dL 073-919 8958/01/10 triglyceride, serum, fasting 320 mg/dL 30-200 HDL cholesterol, serum 46 mg/dL 32-96 LDL cholesterol, serum 67 mg/dL 0-130 Lab Report: HGBA1C - Chemistry hemoglobin A1C, blood, as % of total hemoglobin 7.4 % 4.3-6.0 sodium, serum 140 mmol/L 833-722 9932/09/07 potassium, serum 4.3 mmol/L 3.5-5.2 chloride, serum [...] <30 Encounters Code Encounter Date Provider Facility CPT-18828 Level 4 Est. Patient 09:08:17 PROJECT MANAGER INDUSTRIAL Tu Landeros MD [facility] CPT-45205 Level 4 Est. Patient 14:40:19 CDT Tu Landeros MD [facility] CPT-78663 Level 4 Est. Patient 14:06:04 PROJECT MANAGER INDUSTRIAL Tu Landeros MD [facility] CPT-46209 Level 3 Est. Patient 14:05:18 PROJECT MANAGER INDUSTRIAL Tu Landeros MD [facility] CPT-05316 Level 3 Est. Patient 10:06:54 [facility] IND[employer]RIAL [facility] Est[facility] Patient 13:50:18 PROJECT MANAGER INDUSTRIAL Tu Landeros MD [facility] CPT-94057 Level 3 Est. Patient 10:30:04 CDT Tu Landeros MD [facility] CPT-83382 Level 4 Est. Patient 11:03:38 CDT Tu Landeros MD [facility] CPT-90065 Level 3 Est. Patient 10:20:44 CDT Fab Morales DO [facility] CPT-25290 Level 4 Est. Patient 14:38:57 CDT Tu Landeros MD [facility] CPT-44142 Level 4 Est. Patient 14:27:39 PROJECT MANAGER INDUSTRIAL Tu Landeros MD [facility] CPT-92057 Level 4 Est. Patient 09:45:25 CDT Tu Landeros MD [facility] CPT-37150 Level 4 Est. Patient 09:05:20 PROJECT MANAGER INDUSTRIAL Tu Landeros MD [facility] CPT-52602 Level 4 Est. Patient 14:09:06 CDT Tu Landeros MD [facility] CPT-53484 Level 3 Est. Patient 13:36:54 CDT Tu Landeros MD [facility] CPT-65390 Level 3 Est. Patient 08:59:14 CDT Tu Landeros MD [facility] CPT-56707 Level 3 Est. Patient 13:48:35 CDT Fab Morales DO [facility] CPT-22768 Level 4 Est. Patient 10:05:48 CDT Tu Landeros MD [facility] CPT-01542 Level 3 Est. Patient 13:38:42 CDT Marek BANKS [facility] CPT-25694 Level 5 Est. Patient 08:08:39 CDT Jerrica FRANCIS [facility] CPT-32000 Level 4 Est. Patient 14:23:38 CDT Tu Landeros MD [facility] CPT-86583 Level 3 Est. Patient 11:44:04 CDT Tu Landeros MD [facility] CPT-77298 Level 3 Est. Patient 11:03:20 PROJECT MANAGER INDUSTRIAL Tu Landeros MD [facility] CPT-72658 Level 3 Est. Patient 11:03:14 PROJECT MANAGER INDUSTRIAL Tu Landeros MD [facility] CPT-43366 Level 3 Est. Patient 12:42:49 CDT Tu Landeros MD [facility] CPT-39750 Level 3 Est. Patient 11:52:06 CDT Tu Landeros MD [facility] CPT-07410 Level 3 Est. Patient 13:58:11 CDT Tu Landeros MD [facility] CPT-09285 Level 3 Est. Patient 17:50:07 CDT Fba Morales DO [facility] CPT-01823 Level 3 Est. Patient 12:06:29 CDT Elvira Cervantes MD PhD [facility] CPT-19309 Level 3 Est. Patient 15:50:32 CDT Tu Landeros MD [facility] CPT-87243 Level 4 Est. Patient 16:08:29 CDT Tu Landeros MD [facility] CPT-70109 Level 3 Est. Patient 16:04:19 CDT Tu Landeros MD [facility] CPT-38802 Level 3 Est. Patient 11:22:30 PROJECT MANAGER INDUSTRIAL Tu Landeros MD [facility] CPT-23262 Level 4 Est. Patient 16:24:02 PROJECT MANAGER INDUSTRIAL Tu Landeros MD [facility] CPT-74440 Level 3 Est. Patient 17:21:23 PROJECT MANAGER INDUSTRIAL Tu Landeros MD [facility] Procedures Code Procedure Name Date Entry Date Standard Description CPT-77428 Magnesium - LAB USE ONLY 11:14:20 PROJECT MANAGER IND[employer]RIAL CPT-09629 Lipid - LAB USE ONLY 11:14:20 PROJECT MANAGER INDUSTRIAL CPT-50471 HGBA1C - LAB USE ONLY 11:14:20 PROJECT MANAGER INDUSTRIAL CPT-52291 CMP - LAB USE ONLY 11:14:19 PROJECT MANAGER INDUSTRIAL CPT-53060 CBC - LAB USE ONLY 11:14:19 PROJECT MANAGER INDUSTRIAL CPT-38792 Venipuncture Draw Fee 11:14:18 PROJECT MANAGER INDUSTRIAL CPT-63582 First Vx - Ix admin for Medicare patients 16:46:52 CDT CPT-92806 Fluzone Preservative Free Intramuscular Suspension 16:46 :51 CDT CPT-10524 CBC - LAB USE ONLY 17:14:46 CDT CPT-30989 HGBA1C - LAB USE ONLY 17:14:46 CDT CPT-08110 Venipuncture Draw Fee 17:14:46 CDT CPT-G0438 Initial Annual Wellness Exam 14:13:04 CDT CPT-69386 Breathing Tx 10:06:54 PROJECT MANAGER INDUSTRIAL CPT-65503 Postop F/U Visit 10:02:45 CDT CPT-LR Lesion Removal 09:02:56 CDT CPT-JTINJ Asp/Joint Injection 15:51:27 PROJECT MANAGER INDUSTRIAL CPT-OV Office Visit 15:52:02 PROJECT MANAGER INDUSTRIAL CPT-OV Office Visit 15:45:11 CDT CPT-000 Give Zostavax 14:09:06 CDT CPT-34676 Administration single or combination vaccine inc oral 15 :19:04 CDT CPT-09137 Zoster Vaccine (Zostavax) 15:19:04 CDT CPT-91685 Administration single or combination vaccine inc oral 20 :51:03 CDT CPT-77137 Influenza split virus > age 3 20:51:03 CDT CPT-05385 No Charge Offi Visit 14:52:03 CDT CPT-OV Office Visit 14:57:43 CDT CPT-OV Office Visit 15:22:32 CDT CPT-21748 Administration single or combination vaccine inc oral 11 :33:15 CDT CPT-91758 Influenza split virus > age 3 11:33:15 CDT
--- OUTSIDE RECORDS SUMMARY | 2018-04-25 18:51 | XMS REPORT | Clinical Summary ---
Author Author Admin, SACHI Organization [employer] Address Unknown Phone Unavailable Allergies, Adverse [...] po TID PRN Muscle Spasm CYCLOBENZAPRINE HCL 04346425612 Active Tu Landeros MD Active DICLOFENAC SODIUM 50 MG ORAL TBEC 1 po BID PRN Pain DICLOFENAC SODIUM 43501990257 Delores Landeros MD Active INVOKANA 100 MG ORAL TABS 1 po qd CANAGLIFLOZIN 57010304627 Active Tu Landeros MD Active GLIPIZIDE 5 MG ORAL TABS 1 po qd GLIPIZIDE 38251540814 No Longer Active Tu Landeros MD Active VENLAFAXINE HCL 75 MG ORAL TABS 1 po BID VENLAFAXINE HCL 91735301042 Active Tu Landeros MD Active GLIMEPIRIDE 1 MG ORAL TABS 1 po qd GLIMEPIRIDE 57439651179 No Longer Active Tu Landeros MD Active TRUE METRIX BLOOD GLUCOSE TEST INVITR STRP Test blood sugar BID Dx: E11.9 GLUCOSE BLOOD 82759376562 Active Tu Landeros MD Active TRUE METRIX AIR GLUCOSE METER W/DEVICE KIT Test blood glucose BID Dx: E11.9 BLOOD GLUCOSE MONITORING SUPPL 76274378989 Active Tu Landeros MD Active TRUETEST TEST INVITR STRP test blood sugar twice daily. DX 250.0 GLUCOSE BLOOD 94460660867 No Longer Active Mirna Stanley LPN Active TRUEDRAW LANCING DEVICE MISC test blood sugar twice daily dx: 250.00 LANCET DEVICES 02220459507 No Longer Active Mirna Stanley LPN Active ENALAPRIL MALEATE 20 MG TABS 2 po qd ENALAPRIL MALEATE 61589156650 Active Tu Landeros MD Active SUPER B COMPLEX/VITAMIN C TABS 1 qd B COMPLEX-C 47174395529 No Longer Active Tu Landeros MD Active ASPIRIN EC 81 MG ORAL TBEC 1 po qd ASPIRIN 12214720394 Active Tu Landeros MD Active GLUCOSAMINE 500 MG TABS 2 po qd GLUCOSAMINE Active Tu Landeros MD Active SIMVASTATIN 40 MG TABS 0.5 po qHS SIMVASTATIN 21892511222 Active Tu Landeros MD Active FISH OIL 1000 MG CAPS 1 po qd OMEGA-3 FATTY ACIDS 72563643566 Active Tu Landeros MD Active METFORMIN HCL 1000 MG TABS 1 po BID METFORMIN HCL 77344080020 Active Tu Landeros MD Active KLOR-CON 10 10 MEQ CR-TABS 2 po qd POTASSIUM CHLORIDE 58685339501 Active Tu Landeros MD Active FUROSEMIDE 40 MG TAB 1 po qd FUROSEMIDE 08929879336 Active Tu Landeros MD Active REQUIP 2 MG ORAL TABS 1 po qHS PRN Restless legs ROPINIROLE HCL 64370998249 Active Tu Landeros MD Active GABAPENTIN 100 MG CAPS 1 po BID GABAPENTIN 05824459428 Active Tu Landeros MD Active REQUIP 2 MG TABS Take one tablet at bedtime prn ROPINIROLE HCL 00713202286 No Longer Active Tu Landeros MD Active VENTOLIN HFA 108 (90 BASE) MCG/ACT AERS 1-2 puffs every 4 hours if needed for cough/congestion ALBUTEROL SULFATE 10491738674 No Longer Active Ambika Aden APRN Active ZITHROMAX 250 MG TAB 2 po today, then 1 po q days 2-5 AZITHROMYCIN 18928534815 No Longer Active Miranda Suresh APRN Active FLONASE 50 MCG/ACT SUSP 1 spray each nostril twice daily until bottle empty FLUTICASONE PROPIONATE 41852387011 No Longer Active Tu Landeros MD Active COLACE 100 MG CAP 1 po BID PRN Constipation DOCUSATE SODIUM 89485703973 Active Tu Ladneros MD Active TRUERESULT BLOOD GLUCOSE W/DEVICE KIT test blood sugar twice daily dx 250.00 BLOOD GLUCOSE MONITORING SUPPL 79079906206 No Longer Active Tu Landeros MD Active TRUEDRAW LANCING DEVICE MISC Test twice a day dx 250.0 LANCET DEVICES 75807137334 No Longer Active Tu Landeros MD Active PREDNISONE 20 MG TAB 2 tablets once daily for 2 days, then 1 tablet once daily for 2 days PREDNISONE 01827426073 No Longer Active Tu Landeros MD Active DICLOFENAC SODIUM 50 MG TBEC 1 tablet by mouth three times a day as needed DICLOFENAC SODIUM 24691674239 No Longer Active Fab W Andrew DO Active EMBRACE BLOOD GLUCOSE TEST STRP test blood sugar twice daily DX 250.0 2014 GLUCOSE BLOOD 39865004590 No Longer Active Tu Landeros MD Active TRUETEST TEST STRP test blood sugar three times daily dx: 250.00 GLUCOSE BLOOD 41861733192 No Longer Active Suze VOGEL Active TRUERESULT BLOOD GLUCOSE W/DEVICE KIT use to test blood sugar tid dx: 250.00 BLOOD GLUCOSE MONITORING SUPPL 82710371020 No Longer Active Suze Hardenehart RMA Active ALIGN 4 MG CAPS 1 tid PROBIOTIC PRODUCT 05414506623 No Longer Active Shaun Sy MD Active CIPRO 500 MG TABS 1 bid x 14 days start 09-28-13 CIPROFLOXACIN HCL 66754025593 No Longer Active Shaun Sy MD Active TRAMADOL HCL 50 MG TABS 1-2 tablets every 6 hours as needed for pain TRAMADOL HCL 11049034464 Active Tu Landeros MD Active HYDROCODONE-ACETAMINOPHEN 5-325 MG TABS 1 tab by mouth every 6 hours as needed for pain HYDROCODONE-ACETAMINOPHEN 94887875654 No Longer Active Tu Landeros MD Active OMEPRAZOLE 20 MG CPDR 1 po q a.m. OMEPRAZOLE 95778807431 Active Lesli Kellogg APRN Active GABAPENTIN 100 MG CAPS 1 po bid GABAPENTIN 61747410717 No Longer Active Tu Landeros MD Active B-12 100 MCG TABS Take one by mouth daily CYANOCOBALAMIN 60822495935 No Longer Active Tu Landeros MD Active BACTRIM DS 800-160 MG TABS 1 bid x 14 day start 09-28-13 SULFAMETHOXAZOLE-TRIMETHOPRIM 38699182440 No Longer Active Tu Landeros MD Active CARVEDILOL 12.5 MG TABS 1 po BID CARVEDILOL 22407648265 Active Tu Landeros MD Active TRILIPIX 135 MG CPDR 1 q hs CHOLINE FENOFIBRATE 78837931034 Active Tu Landeros MD Active FENOFIBRATE 145 MG TABS 1 po qd FENOFIBRATE 02956473158 No Longer Active JASPREET Perez Active OMEPRAZOLE 20 MG TBEC 1 PO 30 MIN BEFORE 1ST MEAL OMEPRAZOLE 19029147687 No Longer Active JASPREET Perez Active SIMVASTATIN 40 MG TABS Take one by mouth daily SIMVASTATIN 56391079042 No Longer Active JASPREET Perez Active VENLAFAXINE HCL 75 MG TABS 1 po BID VENLAFAXINE HCL 16025064392 No Longer Active JASPREET Perez Active CIPRO 500 MG TAB 1 tablet by mouth twice daily CIPROFLOXACIN HCL 51383300854 No Longer Active Tu Landeros MD Active VENLAFAXINE HCL 37.5 MG TABS 1 po BID VENLAFAXINE HCL 56296789582 No Longer Active Suze Nicole [facility] Active LAMISIL 250 MG TAB 1 po qd TERBINAFINE HCL 35919291624 No Longer Active Tu Landeros MD Active LORTAB 5 5-500 MG TABS 1/2 to 1 tablet by mouth every 4 hours as needed for pain HYDROCODONE-ACETAMINOPHEN 57585514787 No Longer Active Tu Landeros MD Active HYDROCODONE-ACETAMINOPHEN 5-500 MG TABS take one po Q 4-6 hours prn HYDROCODONE-ACETAMINOPHEN 99618474840 No Longer Active Tu Landeros MD Active BACTRIM DS 800-160 MG TABS 1 po BID x 7 days SULFAMETHOXAZOLE-TRIMETHOPRIM 94157180765 No Longer Active Tu Landeros MD Active VENLAFAXINE HCL 75 MG TABS 1 po BID VENLAFAXINE HCL 47172697339 No Longer Active Elvira Crevantes MD PhD Active TRAMADOL HCL 50 MG TABS 1 tablets every 6 hours as needed for pain TRAMADOL HCL 68287071111 No Longer Active Tu Landeros MD Active ACCU-CHEK FASTCLIX LANCETS MISC Use to check bloodsugar three times daily as needed LANCETS 54684819931 No Longer Active Tu Landeros MD Active ACCU-CHEK KEYONA PLUS STRP Use for testing bloodsugars three times daily as needed GLUCOSE BLOOD 62740009183 No Longer Active Tu Landeros MD Active ACCU-CHEK KEYONA PLUS W/DEVICE KIT Use for testing bloodsugars three times daily as needed BLOOD GLUCOSE MONITORING SUPPL 06729910009 No Longer Active Tu Landeros MD Active SPIRONOLACTONE 25 MG TAB 0.5 tablet by mouth daily SPIRONOLACTONE 43065452398 No Longer Active Tu Landeros MD Active ALPRAZOLAM 0.5 MG TABS 1 tab every 6hrs as needed ALPRAZOLAM 10894705140 No Longer Active Tu Landeros MD Active AUGMENTIN 875-125 MG TAB 1 tab by mouth twice daily with food AMOXICILLIN-POT CLAVULANATE 73730683196 No Longer Active Tu Landeros MD Active PREDNISONE 20 MG TAB 2 tabs daily for 3 days, 1 tab daily for 3 days, 1/2 tab daily for 2 days PREDNISONE 43256476758 No Longer Active Tu Landeros MD Active XANAX 0.5 MG TABS 1 tablet every 6 hrs prn ALPRAZOLAM 25132347819 No Longer Active Tu Landeros MD Active PREDNISONE 20 MG TAB 2 tabs daily for 3 days, 1 tab daily for 3 days, 1/2 tab daily for 2 days PREDNISONE 61092856559 No Longer Active Tu Landeros MD Active TRIAMCINOLONE ACETONIDE 0.1 % OINT Apply to affected areas TID for up to 2 weeks TRIAMCINOLONE ACETONIDE 62624331362 No Longer Active Tu Landeros MD Active LORTAB 5 5-500 MG TABS 1/2 to 1 tablet by mouth every 4 hours as needed for pain HYDROCODONE-ACETAMINOPHEN 69149332266 No Longer Active Tu Landeros MD Active MULTIVITAMINS TABS Take one by mouth daily MULTIPLE VITAMIN 77453320833 No Longer Active Tu Landeros MD Active MELATONIN 5 MG TABS Take one by mouth daily MELATONIN 30119834570 No Longer Active Tu Landeros MD Active SOMA 350 MG TAB 1 po q 6 hours prn spasm CARISOPRODOL 07963001551 No Longer Active Tu Landeros MD Active MECLIZINE HCL 25 MG CHEW TAB 1 four times a day as needed for dizziness 08/05 MECLIZINE HCL 43875158321 No Longer Active Fab Morales DO Active ANGEL BREEZE 2 TEST DISK test tid prn GLUCOSE BLOOD 98555326436 No Longer Active Negra Scott RN Active REGLAN 10 MG TAB 1 po TID PRN Nausea METOCLOPRAMIDE HCL 96393528951 No Longer Active Tu Landeros MD Active METFORMIN HCL 500 MG TABS 1 PO BID METFORMIN HCL 08736532170 No Longer Active Tu Landeros MD Active AMBIEN 10 MG TAB 1 tab by mouth at bedtime as needed for sleep ZOLPIDEM TARTRATE 06752490620 No Longer Active Tu Landeros MD Active FLUOXETINE HCL 40 MG CAPS 1 po q day FLUOXETINE HCL 54215736793 No Longer Active Mayra [place] Active TRILIPIX 135 MG CPDR 1 po qd CHOLINE FENOFIBRATE 95817275236 No Longer Active Tu Landeros MD Active AMBIEN 10 MG TAB 1 tab by mouth at bedtime as needed for sleep AMBIEN 10 MG TAB 221330 ZOLPIDEM TARTRATE Inactive METFORMIN HCL 500 MG TABS 1 PO BID METFORMIN HCL 500 MG TABS 246402 METFORMIN HCL Inactive REGLAN 10 MG TAB 1 po TID PRN Nausea REGLAN 10 MG TAB 037397 METOCLOPRAMIDE HCL Inactive MECLIZINE HCL 25 MG CHEW TAB 1 four times a day as needed for dizziness 08/05 MECLIZINE HCL 25 MG CHEW TAB 642051 MECLIZINE HCL Inactive SOMA 350 MG TAB 1 po q 6 hours prn spasm SOMA 350 MG TAB 132325 CARISOPRODOL Inactive MELATONIN 5 MG TABS Take one by mouth daily MELATONIN 5 MG TABS 661937 MELATONIN Inactive MULTIVITAMINS TABS Take one by mouth daily MULTIVITAMINS TABS MULTIPLE VITAMIN Inactive LORTAB 5 5-500 MG TABS 1/2 to 1 tablet by mouth every 4 hours as needed for pain LORTAB 5 5-500 MG TABS HYDROCODONE- ACETAMINOPHEN Inactive XANAX 0.5 MG TABS 1 tablet every 6 hrs prn XANAX 0.5 MG TABS 108366 ALPRAZOLAM Inactive AUGMENTIN 875-125 MG TAB 1 tab by mouth twice daily with food AUGMENTIN 875-125 MG TAB 057668 AMOXICILLIN-POT CLAVULANATE Inactive ALPRAZOLAM 0.5 MG TABS 1 tab every 6hrs as needed ALPRAZOLAM 0.5 MG TABS 852799 ALPRAZOLAM Inactive SPIRONOLACTONE 25 MG TAB 0.5 tablet by mouth daily SPIRONOLACTONE 25 MG TAB 443096 SPIRONOLACTONE Inactive ACCU-CHEK KEYONA PLUS W/DEVICE KIT Use for testing bloodsugars three times daily as needed ACCU-CHEK KEYONA PLUS W/DEVICE KIT BLOOD GLUCOSE MONITORING SUPPL Inactive ACCU-CHEK KEYONA PLUS STRP Use for testing bloodsugars three times daily as needed ACCU-CHEK KEYONA PLUS STRP GLUCOSE BLOOD Inactive ACCU-CHEK FASTCLIX LANCETS MISC Use to check bloodsugar three times daily as needed ACCU-CHEK FASTCLIX LANCETS MISC 35346478285 [facility] Inactive TRAMADOL HCL 50 MG TABS 1 tablets every 6 hours as needed for pain TRAMADOL HCL 50 MG TABS 392869 TRAMADOL HCL Inactive VENLAFAXINE HCL 75 MG TABS 1 po BID VENLAFAXINE HCL 75 MG TABS 877332 VENLAFAXINE HCL Inactive HYDROCODONE-ACETAMINOPHEN 5-500 MG TABS take one po Q 4-6 hours prn HYDROCODONE-ACETAMINOPHEN 5-500 MG TABS HYDROCODONE- ACETAMINOPHEN Inactive LORTAB 5 5-500 MG TABS 1/2 to 1 tablet by mouth every 4 hours as needed for pain LORTAB 5 5-500 MG TABS HYDROCODONE- ACETAMINOPHEN Inactive LAMISIL 250 MG TAB 1 po qd LAMISIL 250 MG TAB 365691 TERBINAFINE HCL Inactive VENLAFAXINE HCL 37.5 MG TABS 1 po BID VENLAFAXINE HCL 37.5 MG TABS 837216 VENLAFAXINE HCL Inactive CIPRO 500 MG TAB 1 tablet by mouth twice daily CIPRO 500 MG TAB 729772 CIPROFLOXACIN HCL Inactive VENLAFAXINE HCL 75 MG TABS 1 po BID VENLAFAXINE HCL 75 MG TABS 476541 VENLAFAXINE HCL Inactive SIMVASTATIN 40 MG TABS Take one by mouth daily SIMVASTATIN 40 MG TABS 262688 SIMVASTATIN Inactive OMEPRAZOLE 20 MG TBEC 1 PO 30 MIN BEFORE 1ST MEAL OMEPRAZOLE 20 MG TBEC 584639 OMEPRAZOLE Inactive FENOFIBRATE 145 MG TABS 1 po qd FENOFIBRATE 145 MG TABS 231431 FENOFIBRATE Inactive BACTRIM DS 800-160 MG TABS 1 bid x 14 day start 09-28-13 BACTRIM DS 800-160 MG TABS 382849 SULFAMETHOXAZOLE-TRIMETHOPRIM Inactive B-12 100 MCG TABS Take one by mouth daily B-12 100 MCG TABS CYANOCOBALAMIN Inactive GABAPENTIN 100 MG CAPS 1 po bid GABAPENTIN 100 MG CAPS 256915 GABAPENTIN Inactive HYDROCODONE-ACETAMINOPHEN 5-325 MG TABS 1 tab by mouth every 6 hours as needed for pain HYDROCODONE-ACETAMINOPHEN 5-325 MG TABS 013073 HYDROCODONE-ACETAMINOPHEN Inactive CIPRO 500 MG TABS 1 bid x 14 days start 09-28-13 CIPRO 500 MG TABS 340391 CIPROFLOXACIN HCL Inactive ALIGN 4 MG CAPS [...] as needed DICLOFENAC SODIUM 50 MG TBEC 485125 DICLOFENAC SODIUM Inactive PREDNISONE 20 MG TAB 2 tablets once daily for 2 days, then 1 tablet once daily for 2 days PREDNISONE 20 MG TAB 085273 PREDNISONE Inactive TRUEDRAW LANCING DEVICE MISC Test twice a day dx 250.0 TRUEDRAW LANCING DEVICE MISC LANCET DEVICES Inactive TRUERESULT BLOOD GLUCOSE W/DEVICE KIT test blood sugar twice daily dx 250.00 TRUERESULT BLOOD GLUCOSE W/DEVICE KIT BLOOD GLUCOSE MONITORING SUPPL Inactive FLONASE 50 MCG/ACT SUSP 1 spray each nostril twice daily until bottle empty FLONASE 50 MCG/ACT SUSP 0316617 FLUTICASONE PROPIONATE Inactive VENTOLIN HFA 108 (90 BASE) MCG/ACT AERS 1-2 puffs every 4 hours if needed for cough/congestion VENTOLIN HFA 108 (90 BASE) MCG/ACT AERS ALBUTEROL SULFATE Inactive REQUIP 2 MG TABS Take one tablet at bedtime prn REQUIP 2 MG TABS 608466 ROPINIROLE HCL Inactive SUPER B COMPLEX/VITAMIN C TABS 1 qd SUPER B COMPLEX/ VITAMIN C TABS 38093123355 B COMPLEX-C Inactive TRUEDRAW LANCING DEVICE MISC test blood sugar twice daily dx: 250.00 TRUEDRAW LANCING DEVICE MISC LANCET DEVICES Inactive TRUETEST TEST INVITR STRP test blood sugar twice daily. DX 250.0 TRUETEST TEST INVITR STRP GLUCOSE BLOOD Inactive TRIAMCINOLONE ACETONIDE 0.1 % OINT Apply to affected areas TID for up to 2 weeks TRIAMCINOLONE ACETONIDE 0.1 % OINT 4016374 TRIAMCINOLONE ACETONIDE Inactive PREDNISONE 20 MG TAB 2 tabs daily for 3 days, 1 tab daily for 3 days, 1/2 tab daily for 2 days PREDNISONE 20 MG TAB 115964 PREDNISONE Inactive PREDNISONE 20 MG TAB 2 tabs daily for 3 days, 1 tab daily for 3 days, 1/2 tab daily for 2 days PREDNISONE 20 MG TAB 191589 PREDNISONE Inactive BACTRIM DS 800-160 MG TABS 1 po BID x 7 days BACTRIM DS 800-160 MG TABS 703012 SULFAMETHOXAZOLE-TRIMETHOPRIM Inactive ZITHROMAX 250 MG TAB 2 po today, then 1 po q days 2-5 ZITHROMAX 250 MG TAB 7650317 AZITHROMYCIN Inactive Advance Directives Directive Description Start Date DISCUSSED WITH PATIENT -- NO DECISION MADE Immunizations Vaccine Administration Date Value Standard Description Seasonal influenza vaccine, injectable, containing preservative, for > 3 years old (Afluria, FluLaval, Fluzone, Fluvirin, Fluarix, Agriflu(>=18 yo)) Fluzone (>3 yrs.) [[id number]] Influenza, seasonal, injectable influenza immunization (Flu Vax) has been administered 02/22/2012 influenza virus vaccine, unspecified formulation Seasonal influenza vaccine, injectable, containing preservative, for > 3 years old (Afluria, FluLaval, Fluzone, Fluvirin, Fluarix, Agriflu(>=18 yo)) Fluzone (>3 yrs.) [[id number]] Influenza, seasonal, injectable Vital Signs Date Name [...] Magnesium - Chemistry sodium, serum 143 mmol/L 291-136 9731/01/10 carbon dioxide, venous blood 28.0 mmol/L 21.0-32.0 potassium, serum 4.5 mmol/L 3.5-5.2 chloride, serum 104 mmol/L 98-107 blood glucose 158 mg/dL 65-110 urea nitrogen, blood 23 mg/dL 7-18 creatinine, serum 1.06 mg/dL 0.55-1.30 alanine aminotransferase (SGPT), serum 42 U/L 12-78 aspartate aminotransferase (SGOT), serum 32 U/L 15-37 calcium, serum 9.3 mg/dL 8.5-10.1 bilirubin, serum, total 0.20 mg/dL 0.00-1.00 cholesterol, serum 177 mg/dL 625-245 9360/01/10 triglyceride, serum, fasting 320 mg/dL 30-200 HDL cholesterol, serum 46 mg/dL 32-96 LDL cholesterol, serum 67 mg/dL 0-130 Lab Report: COMPREHENSIVE METABOLIC PANEL, LIPID PANEL, HEMOGLOBIN A1c - Chemistry cholesterol, serum 135 mg/dL 993-358 8242/05/17 HDL cholesterol, serum 41 mg/dL > OR=46 triglyceride, serum, fasting 206 mg/dL <150 LDL cholesterol, serum 53 MG/DL (CALC) mg/dL <130 cholesterol/HDL ratio, serum 3.3 (calc) < OR=5.0 Lab Report: HGBA1C - Chemistry hemoglobin A1C, blood, as % of total hemoglobin 7.4 % 4.3-6.0 sodium, serum 140 mmol/L 025-431 1279/09/07 potassium, serum 4.3 mmol/L 3.5-5.2 chloride, serum [...] <30 Encounters Code Encounter Date Provider Facility CPT-14062 Level 3 Est. Patient 13:33:09 CDT Tu Landeros MD [facility] CPT-70844 Level 4 Est. Patient 14:29:21 CDT Tu Landeros MD [facility] CPT-82934 Level 4 Est. Patient 09:08:17 ROUTEMAN Tu Landeros MD [facility] CPT-62111 Level 4 Est. Patient 14:40:19 CDT Tu Landeros MD [facility] CPT-38371 Level 4 Est. Patient 14:06:04 ROUTEMAN Tu Landeros MD [facility] CPT-27211 Level 3 Est. Patient 14:05:18 ROUTEMAN Tu Landeros MD [facility] CPT-99733 Level 3 Est. Patient 10:06:54 ROUTEMAN Miranda Suresh APRN [facility] CPT-98986 Level 4 Est. Patient 13:50:18 ROUTEMAN Tu Landeros MD [facility] CPT-46189 Level 3 Est. Patient 10:30:04 CDT Tu Landeros MD [facility] CPT-92826 Level 4 Est. Patient 11:03:38 CDT Tu Landeros MD [facility] CPT-92396 Level 3 Est. Patient 10:20:44 CDT Fab Morales DO [facility] CPT-24406 Level 4 Est. Patient 14:38:57 CDT Tu Landeros MD [facility] CPT-45054 Level 4 Est. Patient 14:27:39 ROUTEMAN Tu Landeros MD [facility] CPT-37870 Level 4 Est. Patient 09:45:25 CDT Tu Landeros MD [facility] CPT-06602 Level 4 Est. Patient 09:05:20 ROUTEMAN Tu Landeros MD [facility] CPT-18529 Level 4 Est. Patient 14:09:06 CDT Tu Landeros MD [facility] CPT-51510 Level 3 Est. Patient 13:36:54 CDT Tu Landeros MD [facility] CPT-19992 Level 3 Est. Patient 08:59:14 CDT Tu Landeros MD [facility] CPT-86095 Level 3 Est. Patient 13:48:35 CDT Fab Morales DO [facility] CPT-37143 Level 4 Est. Patient 10:05:48 CDT Tu Landeros MD [facility] CPT-98219 Level 3 Est. Patient 13:38:42 CDT Marek BANKS [facility] CPT-18821 Level 5 Est. Patient 08:08:39 CDT Jerrica FRANCIS [facility] CPT-73418 Level 4 Est. Patient 14:23:38 CDT Tu Landeros MD [facility] CPT-57779 Level 3 Est. Patient 11:44:04 CDT Tu Landeros MD [facility] CPT-74676 Level 3 Est. Patient 11:03:20 ROUTEMAN Tu Landeros MD [facility] CPT-86217 Level 3 Est. Patient 11:03:14 ROUTEMAN Tu Landeros MD [facility] CPT-08326 Level 3 Est. Patient 12:42:49 CDT Tu Landeros MD [facility] CPT-93043 Level 3 Est. Patient 11:52:06 CDT Tu Landeros MD [facility] CPT-02578 Level 3 Est. Patient 13:58:11 CDT Tu Landeros MD [facility] CPT-31749 Level 3 Est. Patient 17:50:07 CDT Fab Morales DO [facility] CPT-24998 Level 3 Est. Patient 12:06:29 CDT Elvira Cervantes MD, PhD [facility] CPT-56409 Level 3 Est. Patient 15:50:32 CDT uT Landeros MD [facility] CPT-91268 Level 4 Est. Patient 16:08:29 CDT Tu Landeros MD [facility] CPT-18558 Level 3 Est. Patient 16:04:19 CDT Tu Landeros MD [facility] CPT-70268 Level 3 Est. Patient 11:22:30 ROUTEMAN Tu Landeros MD [facility] CPT-36169 Level 4 Est. Patient 16:24:02 ROUTEMAN Tu Landeros MD [facility] CPT-19553 Level 3 Est. Patient 17:21:23 ROUTEMAN Tu Landeros MD [facility] Procedures Code Procedure Name Date Entry Date Standard Description CPT-01296 Shoulder, right, comp min 2V - XRAY USE ONLY 13:50:22 CDT CPT-G0009 Administration of Pneumococcal Vaccine 15:08:26 CDT CPT-73534 Prevnar 13 Intramuscular Suspension 15:08:26 CDT 10/08 CPT-G0439 Subsequent Annual Wellness Exam 14:29:22 CDT CPT-99884 Venipuncture Draw Fee 13:15:35 CDT CPT-07308 Magnesium - LAB USE ONLY 11:14:20 ROUTEMAN CPT-40216 Lipid - LAB USE ONLY 11:14:20 ROUTEMAN CPT-64738 HGBA1C - LAB USE ONLY 11:14:20 ROUTEMAN CPT-08664 CMP - LAB USE ONLY 11:14:19 ROUTEMAN CPT-17159 CBC - LAB USE ONLY 11:14:19 ROUTEMAN CPT-08530 Venipuncture Draw Fee 11:14:18 ROUTEMAN CPT-61374 First Vx - Ix admin for Medicare patients 16:46:52 CDT CPT-38774 Fluzone Preservative Free Intramuscular Suspension 16:46 :51 CDT CPT-69904 CBC - LAB USE ONLY 17:14:46 CDT CPT-18082 HGBA1C - LAB USE ONLY 17:14:46 CDT CPT-04125 Venipuncture Draw Fee 17:14:46 CDT CPT-G0438 Initial Annual Wellness Exam 14:13:04 CDT CPT-15884 Breathing Tx 10:06:54 ROUTEMAN CPT-13359 Postop F/U Visit 10:02:45 CDT CPT-LR Lesion Removal 09:02:56 CDT CPT-JTINJ Asp/Joint Injection 15:51:27 ROUTEMAN CPT-OV Office Visit 15:52:02 ROUTEMAN CPT-OV Office Visit 15:45:11 CDT CPT-000 Give Zostavax 14:09:06 CDT CPT-34621 Administration single or combination vaccine inc oral 15 :19:04 CDT CPT-70346 Zoster Vaccine (Zostavax) 15:19:04 CDT CPT-82954 Administration single or combination vaccine inc oral 20 :51:03 CDT CPT-96745 Influenza split virus > age 3 20:51:03 CDT CPT-25684 No Charge Offi Visit 14:52:03 CDT CPT-OV Office Visit 14:57:43 CDT CPT-OV Office Visit 15:22:32 CDT CPT-20736 Administration single or combination vaccine inc oral 11 :33:15 CDT CPT-42723 Influenza split virus > age 3 11:33:15 CDT
--- OUTSIDE RECORDS SUMMARY | 2018-04-25 18:53 | XMS REPORT | Clinical Summary ---
Author Author Admin, SACHI Organization [facility] Address Unknown Phone Unavailable Allergies, Adverse Reactions, [...] ORAL TABLET 1 po BID MAGNESIUM OXIDE 85742360098 Active Tu Landeros MD Active SIMVASTATIN 20 MG ORAL TABLET 0.5 po qHS SIMVASTATIN 40244669551 Active Tu Landeros MD Active DICLOFENAC SODIUM 75 MG ORAL TABLET DELAYED RELEASE 1 po BID PRN Pain DICLOFENAC SODIUM 81340925259 No Longer Active Tu Landeros MD Active GABAPENTIN 100 MG ORAL CAPSULE 1 po TID GABAPENTIN 49500656786 Active Tu Landeros MD Active DICLOFENAC SODIUM 50 MG ORAL TABLET DELAYED RELEASE 1 po BID PRN Pain DICLOFENAC SODIUM 39440744548 No Longer Active Tu Landeros MD Active CYCLOBENZAPRINE HCL 10 MG ORAL TABLET 1 po TID PRN Muscle Spasm CYCLOBENZAPRINE HCL 58509018750 No Longer Active Tu Landeros MD Active INVOKANA 100 MG ORAL TABLET 1 po qd CANAGLIFLOZIN 09898151481 Active Tu Landeros MD Active GLIPIZIDE 5 MG ORAL TABLET 1 po qd GLIPIZIDE 68631169991 No Longer Active Tu Landeros MD Active VENLAFAXINE HCL 75 MG ORAL TABLET 1 po BID VENLAFAXINE HCL 23452536484 Active Tu Landeros MD Active GLIMEPIRIDE 1 MG ORAL TABLET 1 po qd GLIMEPIRIDE 20111545093 No Longer Active Tu Landeros MD Active TRUE METRIX BLOOD GLUCOSE TEST IN VITRO STRIP Test blood sugar BID Dx: E11.9 GLUCOSE BLOOD 62699454241 Active Tu Landeros MD Active TRUE METRIX AIR GLUCOSE METER w/Device KIT Test blood glucose BID Dx: E11.9 BLOOD GLUCOSE MONITORING SUPPL 17410530338 Active Tu Landeros MD Active TRUETEST TEST IN VITRO STRIP test blood sugar twice daily. DX 250.0 GLUCOSE BLOOD 50319426698 No Longer Active Mirna Stanley LPN Active TRUEDRAW LANCING DEVICE test blood sugar twice daily dx: 250.00 LANCET DEVICES 54884494891 No Longer Active Mirna Stanley LPN Active ENALAPRIL MALEATE 20 MG ORAL TABLET 2 po qd ENALAPRIL MALEATE 45934027632 Active Tu Landeros MD Active SUPER B COMPLEX/VITAMIN C ORAL TABLET 1 qd B COMPLEX- C 94582295198 No Longer Active Tu Landeros MD Active ASPIRIN EC 81 MG ORAL TABLET DELAYED RELEASE 1 po qd ASPIRIN 49886799929 Active Tu Landeros MD Active GLUCOSAMINE 500 MG TABS 2 po qd GLUCOSAMINE Active Tu Landeros MD Active FISH OIL 1000 MG ORAL CAPSULE 1 po qd OMEGA-3 FATTY ACIDS 27048575576 Active Tu Landeros MD Active METFORMIN HCL 1000 MG ORAL TABLET 1 po BID METFORMIN HCL 42316480535 Active Tu Landeros MD Active KLOR-CON 10 10 MEQ ORAL TABLET EXTENDED RELEASE 2 po qd POTASSIUM CHLORIDE 19634639347 Active Tu Landeros MD Active FUROSEMIDE 40 MG ORAL TABLET 1 po qd FUROSEMIDE 25570191614 Active Tu Landeros MD Active REQUIP 2 MG ORAL TABLET 1 po qHS PRN Restless legs ROPINIROLE HCL 56449589917 Active Tu Landeros MD Active REQUIP 2 MG ORAL TABLET Take one tablet at bedtime prn ROPINIROLE HCL 19897344562 No Longer Active Tu Landeros MD Active VENTOLIN HFA 108 (90 Base) MCG/ACT INHALATION AEROSOL SOLUTION 1-2 puffs every 4 hours if needed for cough/congestion ALBUTEROL SULFATE 77783827706 No Longer Active Ambika Aden APRN Active ZITHROMAX 250 MG ORAL TABLET 2 po today, then 1 po q days 2-5 AZITHROMYCIN 78379637365 No Longer Active Miranda Suresh APRN Active FLONASE 50 MCG/ACT NASAL SUSPENSION 1 spray each nostril twice daily until bottle empty FLUTICASONE PROPIONATE 57644893277 No Longer Active Tu Landeros MD Active COLACE 100 MG ORAL CAPSULE 1 po BID PRN Constipation DOCUSATE SODIUM 88701516410 Active Tu Landeros MD Active TRUERESULT BLOOD GLUCOSE w/Device KIT test blood sugar twice daily dx 250.00 BLOOD GLUCOSE MONITORING SUPPL 58706914546 No Longer Active Tu Landeros MD Active TRUEDRAW LANCING DEVICE Test twice a day dx 250.0 LANCET DEVICES 40078980973 No Longer Active Tu Landeros MD Active PREDNISONE 20 MG ORAL TABLET 2 tablets once daily for 2 days, then 1 tablet once daily for 2 days PREDNISONE 42258515189 No Longer Active Tu Landeros MD Active DICLOFENAC SODIUM 50 MG ORAL TABLET DELAYED RELEASE 1 tablet by mouth three times a day as needed DICLOFENAC SODIUM 29256734808 No Longer Active Fab Morales DO Active EMBRACE BLOOD GLUCOSE TEST IN VITRO STRIP test blood sugar twice daily DX 250.0 GLUCOSE BLOOD 73476204282 No Longer Active Tu Landeros MD Active TRUETEST TEST IN VITRO STRIP test blood sugar three times daily dx: 250.00 GLUCOSE BLOOD 72539014738 No Longer Active Suze VOGEL Active TRUERESULT BLOOD GLUCOSE w/Device KIT use to test blood sugar tid dx: 250.00 BLOOD GLUCOSE MONITORING SUPPL 12019885924 No Longer Active Suze Corey VOGEL Active ALIGN 4 MG ORAL CAPSULE 1 tid PROBIOTIC PRODUCT 67548734069 No Longer Active Shaun Sy MD Active CIPRO 500 MG ORAL TABLET 1 bid x 14 days start 09-28-13 CIPROFLOXACIN HCL 96215336805 No Longer Active Shaun Sy MD Active TRAMADOL HCL 50 MG ORAL TABLET 1-2 tablets every 6 hours as needed for pain TRAMADOL HCL 77271956492 Active Tu Landeros MD Active HYDROCODONE-ACETAMINOPHEN 5-325 MG ORAL TABLET 1 tab by mouth every 6 hours as needed for pain HYDROCODONE-ACETAMINOPHEN 62641281753 No Longer Active Tu Landeros MD Active OMEPRAZOLE 20 MG ORAL CAPSULE DELAYED RELEASE 1 po q a.m. OMEPRAZOLE 70109200038 Active Fab Morales DO Active GABAPENTIN 100 MG ORAL CAPSULE 1 po bid GABAPENTIN 73906183603 No Longer Active Tu Landeros MD Active B-12 100 MCG ORAL TABLET Take one by mouth daily CYANOCOBALAMIN 23383283563 No Longer Active Tu Landeros MD Active BACTRIM DS 800-160 MG ORAL TABLET 1 bid x 14 day start 09-28-13 SULFAMETHOXAZOLE-TRIMETHOPRIM 49444732091 No Longer Active Tu Landeros MD Active CARVEDILOL 12.5 MG ORAL TABLET 1 po BID CARVEDILOL 92853375811 Active Tu Landeros MD Active TRILIPIX 135 MG ORAL CAPSULE DELAYED RELEASE 1 q hs CHOLINE FENOFIBRATE 91390428473 Active Tu Landeros MD Active FENOFIBRATE 145 MG ORAL TABLET 1 po qd FENOFIBRATE 13750558968 No Longer Active JASPREET Perez Active OMEPRAZOLE 20 MG ORAL TABLET DELAYED RELEASE 1 PO 30 MIN BEFORE 1ST MEAL 2010 OMEPRAZOLE 06135166256 No Longer Active JASPREET Perez Active SIMVASTATIN 40 MG ORAL TABLET Take one by mouth daily SIMVASTATIN 16851126418 No Longer Active JASPREET Perez Active VENLAFAXINE HCL 75 MG ORAL TABLET 1 po BID VENLAFAXINE HCL 79897386361 No Longer Active JASPREET Perez Active CIPRO 500 MG ORAL TABLET 1 tablet by mouth twice daily CIPROFLOXACIN HCL 54447361858 No Longer Active Tu Landeros MD Active VENLAFAXINE HCL 37.5 MG ORAL TABLET 1 po BID VENLAFAXINE HCL 36314030661 No Longer Active Suze VOGEL Active LAMISIL 250 MG ORAL TABLET 1 po qd TERBINAFINE HCL 01590258199 No Longer Active Tu Landeros MD Active LORTAB 5-500 MG ORAL TABLET 1/2 to 1 tablet by mouth every 4 hours as needed for pain HYDROCODONE-ACETAMINOPHEN 91753354155 No Longer Active Tu Landeros MD Active HYDROCODONE-ACETAMINOPHEN 5-500 MG ORAL TABLET take one po Q 4-6 hours prn HYDROCODONE-ACETAMINOPHEN 18869077048 No Longer Active Tu Landeros MD Active BACTRIM DS 800-160 MG ORAL TABLET 1 po BID x 7 days SULFAMETHOXAZOLE-TRIMETHOPRIM 78490554097 No Longer Active Tu Landeros MD Active VENLAFAXINE HCL 75 MG ORAL TABLET 1 po BID VENLAFAXINE HCL 52440177431 No Longer Active Elvira Cervantes MD PhD Active TRAMADOL HCL 50 MG ORAL TABLET 1 tablets every 6 hours as needed for pain TRAMADOL HCL 68702252150 No Longer Active Tu Landeros MD Active ACCU-CHEK FASTCLIX LANCETS Use to check bloodsugar three times daily as needed LANCETS 15562748468 No Longer Active Tu Landeros MD Active ACCU-CHEK KEYONA PLUS IN VITRO STRIP Use for testing bloodsugars three times daily as needed GLUCOSE BLOOD 23833840312 No Longer Active Tu Landeros MD Active ACCU-CHEK KEYONA PLUS w/Device KIT Use for testing bloodsugars three times daily as needed BLOOD GLUCOSE MONITORING SUPPL 86837029082 No Longer Active Tu Landeros MD Active SPIRONOLACTONE 25 MG ORAL TABLET 0.5 tablet by mouth daily 09/09 SPIRONOLACTONE 44484498244 No Longer Active Tu Landeros MD Active ALPRAZOLAM 0.5 MG ORAL TABLET 1 tab every 6hrs as needed ALPRAZOLAM 56191401749 No Longer Active Tu Landeros MD Active AUGMENTIN 875-125 MG ORAL TABLET 1 tab by mouth twice daily with food AMOXICILLIN-POT CLAVULANATE 76947716759 No Longer Active Tu Landeros MD Active PREDNISONE 20 MG ORAL TABLET 2 tabs daily for 3 days, 1 tab daily for 3 days, 1/2 tab daily for 2 days PREDNISONE 24188042601 No Longer Active Tu Landeros MD Active XANAX 0.5 MG ORAL TABLET 1 tablet every 6 hrs prn ALPRAZOLAM 79643873994 No Longer Active Tu Landeros MD Active PREDNISONE 20 MG ORAL TABLET 2 tabs daily for 3 days, 1 tab daily for 3 days, 1/2 tab daily for 2 days PREDNISONE 37826187966 No Longer Active Tu Landeros MD Active TRIAMCINOLONE ACETONIDE 0.1 % EXTERNAL OINTMENT Apply to affected areas TID for up to 2 weeks TRIAMCINOLONE ACETONIDE 41458628702 No Longer Active Tu Landeros MD Active LORTAB 5-500 MG ORAL TABLET 1/2 to 1 tablet by mouth every 4 hours as needed for pain HYDROCODONE-ACETAMINOPHEN 90684779807 No Longer Active Tu Landeros MD Active MULTIVITAMINS TABS Take one by mouth daily MULTIPLE VITAMIN 13784249658 No Longer Active Tu Landeros MD Active MELATONIN 5 MG ORAL TABLET Take one by mouth daily MELATONIN 82731552194 No Longer Active Tu Landeros MD Active SOMA 350 MG ORAL TABLET 1 po q 6 hours prn spasm CARISOPRODOL 08848916384 No Longer Active Tu Landeros MD Active MECLIZINE HCL 25 MG ORAL TABLET CHEWABLE 1 four times a day as needed for dizziness MECLIZINE HCL 53245286939 No Longer Active Fab Morales DO Active ANGEL BREEZE 2 TEST IN VITRO DISK test tid prn GLUCOSE BLOOD 79052341287 No Longer Active Negra Scott RN Active REGLAN 10 MG ORAL TABLET 1 po TID PRN Nausea METOCLOPRAMIDE HCL 44046025822 No Longer Active Tu Landeros MD Active METFORMIN HCL 500 MG ORAL TABLET 1 PO BID METFORMIN HCL 26775083050 No Longer Active uT Landeros MD Active AMBIEN 10 MG ORAL TABLET 1 tab by mouth at bedtime as needed for sleep 06/10 ZOLPIDEM TARTRATE 73444172411 No Longer Active Tu Landeros MD Active FLUOXETINE HCL 40 MG ORAL CAPSULE 1 po q day FLUOXETINE HCL 32795593666 No Longer Active Mayra Terry Active TRILIPIX 135 MG ORAL CAPSULE DELAYED RELEASE 1 po qd CHOLINE FENOFIBRATE 16236474550 No Longer Active Tu Landeros MD Active AMBIEN 10 MG ORAL TABLET 1 tab by mouth at bedtime as needed for sleep 06/10 AMBIEN 10 MG ORAL TABLET 801879 ZOLPIDEM TARTRATE Inactive METFORMIN HCL 500 MG ORAL TABLET 1 PO BID METFORMIN HCL 500 MG ORAL TABLET 193624 METFORMIN HCL Inactive REGLAN 10 MG ORAL TABLET 1 po TID PRN Nausea REGLAN 10 MG ORAL TABLET 318619 METOCLOPRAMIDE HCL Inactive MECLIZINE HCL 25 MG ORAL TABLET CHEWABLE 1 four times a day as needed for dizziness MECLIZINE HCL 25 MG ORAL TABLET CHEWABLE 695400 MECLIZINE HCL Inactive SOMA 350 MG ORAL TABLET 1 po q 6 hours prn spasm SOMA 350 MG ORAL TABLET 737026 CARISOPRODOL Inactive MELATONIN 5 MG ORAL TABLET Take one by mouth daily MELATONIN 5 MG ORAL TABLET 616462 MELATONIN Inactive MULTIVITAMINS TABS Take one by mouth daily MULTIVITAMINS TABS MULTIPLE VITAMIN Inactive LORTAB 5-500 MG ORAL TABLET 1/2 to 1 tablet by mouth every 4 hours as needed for pain LORTAB 5-500 MG ORAL TABLET 079040 HYDROCODONE-ACETAMINOPHEN Inactive XANAX 0.5 MG ORAL TABLET 1 tablet every 6 hrs prn XANAX 0.5 MG ORAL TABLET 380220 ALPRAZOLAM Inactive AUGMENTIN 875-125 MG ORAL TABLET 1 tab by mouth twice daily with food AUGMENTIN 875-125 MG ORAL TABLET 434120 AMOXICILLIN-POT CLAVULANATE Inactive ALPRAZOLAM 0.5 MG ORAL TABLET 1 tab every 6hrs as needed ALPRAZOLAM 0.5 MG ORAL TABLET 137155 ALPRAZOLAM Inactive SPIRONOLACTONE 25 MG ORAL TABLET 0.5 tablet by mouth daily 09/09 SPIRONOLACTONE 25 MG ORAL TABLET 031730 SPIRONOLACTONE Inactive ACCU-CHEK KEYONA PLUS w/Device KIT [...] times daily as needed ACCU-CHEK FASTCLIX LANCETS 36840308749 LANCETS Inactive TRAMADOL HCL 50 MG ORAL TABLET 1 tablets every 6 hours as needed for pain TRAMADOL HCL 50 MG ORAL TABLET 331494 TRAMADOL HCL Inactive VENLAFAXINE HCL 75 MG ORAL TABLET 1 po BID VENLAFAXINE HCL 75 MG ORAL TABLET 675673 VENLAFAXINE HCL Inactive HYDROCODONE-ACETAMINOPHEN 5-500 MG ORAL TABLET take one po Q 4-6 hours prn HYDROCODONE-ACETAMINOPHEN 5-500 MG ORAL TABLET 604939 HYDROCODONE-ACETAMINOPHEN Inactive LORTAB 5-500 MG ORAL TABLET 1/2 to 1 tablet by mouth every 4 hours as needed for pain LORTAB 5-500 MG ORAL TABLET 677136 HYDROCODONE-ACETAMINOPHEN Inactive LAMISIL 250 MG ORAL TABLET 1 po qd LAMISIL 250 MG ORAL TABLET 015763 TERBINAFINE HCL Inactive VENLAFAXINE HCL 37.5 MG ORAL TABLET 1 po BID VENLAFAXINE HCL 37.5 MG ORAL TABLET 334991 VENLAFAXINE HCL Inactive CIPRO 500 MG ORAL TABLET 1 tablet by mouth twice daily CIPRO 500 MG ORAL TABLET 406538 CIPROFLOXACIN HCL Inactive VENLAFAXINE HCL 75 MG ORAL TABLET 1 po BID VENLAFAXINE HCL 75 MG ORAL TABLET 555827 VENLAFAXINE HCL Inactive SIMVASTATIN 40 MG ORAL TABLET Take one by mouth daily SIMVASTATIN 40 MG ORAL TABLET 251283 SIMVASTATIN Inactive OMEPRAZOLE 20 MG ORAL TABLET DELAYED RELEASE 1 PO 30 MIN BEFORE 1ST MEAL 2010 OMEPRAZOLE 20 MG ORAL TABLET DELAYED RELEASE 332271 OMEPRAZOLE Inactive FENOFIBRATE 145 MG ORAL TABLET 1 po qd FENOFIBRATE 145 MG ORAL TABLET 481168 FENOFIBRATE Inactive BACTRIM DS 800-160 MG ORAL TABLET 1 bid x 14 day start 09-28-13 BACTRIM DS 800-160 MG ORAL TABLET 957918 SULFAMETHOXAZOLE- TRIMETHOPRIM Inactive B-12 100 MCG ORAL TABLET Take one by mouth daily B-12 100 MCG ORAL TABLET CYANOCOBALAMIN Inactive GABAPENTIN 100 MG ORAL CAPSULE 1 po bid GABAPENTIN 100 MG ORAL CAPSULE 492614 GABAPENTIN Inactive HYDROCODONE-ACETAMINOPHEN 5-325 MG ORAL TABLET 1 tab by mouth every 6 hours as needed for pain HYDROCODONE-ACETAMINOPHEN 5-325 MG ORAL TABLET 933366 HYDROCODONE-ACETAMINOPHEN Inactive CIPRO 500 MG ORAL TABLET 1 bid x 14 days start 09-28-13 CIPRO 500 MG ORAL TABLET 653274 CIPROFLOXACIN HCL Inactive ALIGN 4 MG ORAL [...] SODIUM 50 MG ORAL TABLET DELAYED RELEASE 942740 DICLOFENAC SODIUM Inactive PREDNISONE 20 MG ORAL TABLET 2 tablets once daily for 2 days, then 1 tablet once daily for 2 days PREDNISONE 20 MG ORAL TABLET 412363 PREDNISONE Inactive TRUEDRAW LANCING DEVICE Test twice a day dx 250.0 TRUEDRAW LANCING DEVICE LANCET DEVICES Inactive TRUERESULT BLOOD GLUCOSE w/Device KIT test blood sugar twice daily dx 250.00 TRUERESULT BLOOD GLUCOSE w/Device KIT BLOOD GLUCOSE MONITORING SUPPL Inactive FLONASE 50 MCG/ACT NASAL SUSPENSION 1 spray each nostril twice daily until bottle empty FLONASE 50 MCG/ACT NASAL SUSPENSION 0533134 FLUTICASONE PROPIONATE Inactive VENTOLIN HFA 108 (90 Base) MCG/ACT INHALATION AEROSOL SOLUTION 1-2 puffs every 4 hours if needed for cough/congestion VENTOLIN HFA 108 (90 Base) MCG/ACT INHALATION AEROSOL SOLUTION ALBUTEROL SULFATE Inactive REQUIP 2 MG ORAL TABLET Take one tablet at bedtime prn REQUIP 2 MG ORAL TABLET 323312 ROPINIROLE HCL Inactive SUPER B COMPLEX/VITAMIN C ORAL TABLET 1 qd SUPER B COMPLEX/VITAMIN C ORAL TABLET 93430159088 B COMPLEX-C Inactive TRUEDRAW LANCING DEVICE test blood sugar twice daily dx: 250.00 TRUEDRAW LANCING DEVICE LANCET DEVICES Inactive TRUETEST TEST IN VITRO STRIP test blood sugar twice daily. DX 250.0 TRUETEST TEST IN VITRO STRIP GLUCOSE BLOOD Inactive CYCLOBENZAPRINE HCL 10 MG ORAL TABLET 1 po TID PRN Muscle Spasm CYCLOBENZAPRINE HCL 10 MG ORAL TABLET 188340 CYCLOBENZAPRINE HCL Inactive DICLOFENAC SODIUM 50 MG ORAL TABLET DELAYED RELEASE 1 po BID PRN Pain DICLOFENAC SODIUM 50 MG ORAL TABLET DELAYED RELEASE 898214 DICLOFENAC SODIUM Inactive DICLOFENAC SODIUM 75 MG ORAL TABLET DELAYED RELEASE 1 po BID PRN Pain DICLOFENAC SODIUM 75 MG ORAL TABLET DELAYED RELEASE 056110 DICLOFENAC SODIUM Inactive TRIAMCINOLONE ACETONIDE 0.1 % EXTERNAL OINTMENT Apply to affected areas TID for up to 2 weeks TRIAMCINOLONE ACETONIDE 0.1 % EXTERNAL OINTMENT 4116110 TRIAMCINOLONE ACETONIDE Inactive PREDNISONE 20 MG ORAL TABLET 2 tabs daily for 3 days, 1 tab daily for 3 days, 1/2 tab daily for 2 days PREDNISONE 20 MG ORAL TABLET 454588 PREDNISONE Inactive PREDNISONE 20 MG ORAL TABLET 2 tabs daily for 3 days, 1 tab daily for 3 days, 1/2 tab daily for 2 days PREDNISONE 20 MG ORAL TABLET 607845 PREDNISONE Inactive BACTRIM DS 800-160 MG ORAL TABLET 1 po BID x 7 days BACTRIM DS 800-160 MG ORAL TABLET 530144 SULFAMETHOXAZOLE-TRIMETHOPRIM Inactive ZITHROMAX 250 MG ORAL TABLET 2 po today, then 1 po q days 2-5 ZITHROMAX 250 MG ORAL TABLET 587784 AZITHROMYCIN Inactive Advance Directives Directive Description Start Date DISCUSSED WITH PATIENT -- NO DECISION MADE Immunizations Vaccine Administration Date Value Standard Description Seasonal influenza vaccine, injectable, containing preservative, for > 3 years old (Afluria, FluLaval, Fluzone, Fluvirin, Fluarix, Agriflu(>=18 yo)) Fluzone (>3 yrs.) [[id number]] Influenza, seasonal, injectable influenza immunization (Flu Vax) has been administered 02/22/2012 influenza virus vaccine, unspecified formulation Seasonal influenza vaccine, injectable, containing preservative, for > 3 years old (Afluria, FluLaval, Fluzone, Fluvirin, Fluarix, Agriflu(>=18 yo)) Fluzone (>3 yrs.) [[id number]] Influenza, seasonal, injectable Vital Signs Date Name [...] Measured blood pressure, diastolic 73 mm[Hg] BP ca blood pressure, systolic 143 mm[Hg] BP sys height E&M 60.25 [in_us] Bdy height pulse rate E&M 66 /min Heart rate temperature E&M 98.0 [degF] Body temperature weight E&M 310.38 [lb_av] Weight Measured Diagnostic Results Date Name Value Unit Range Description Lab Report: CBC, Comp. Metabolic Panel, HGBA1C, Lipid Panel, Magnesium, ... - Chemistry sodium, serum 141 mmol/L 456-132 1772/01/16 carbon dioxide, venous blood 28.3 mmol/L 21.0-32.0 [...] 6.7 % 4.3-6.0 cholesterol, serum 106 mg/dL 313-915 7502/01/16 triglyceride, serum, fasting 173 mg/dL 30-200 HDL [...] A1c - Chemistry cholesterol, serum 135 mg/dL 877-524 8737/05/17 HDL cholesterol, serum 41 mg/dL > OR=46 triglyceride, serum, fasting 206 mg/dL <150 LDL cholesterol, serum 53 MG/DL (CALC) mg/dL <130 cholesterol/HDL ratio, serum 3.3 (calc) < OR=5.0 Lab Report: HGBA1C - Chemistry hemoglobin A1C, blood, as % of total hemoglobin 6.5 % 4.3-6.0 Encounters Code Encounter Date Provider Facility CPT-66326 Level 4 Est. Patient 13:42:02 [employer] Tu Landeros MD [facility] CPT-66168 Level 3 Est. Patient 14:20:36 CDT Tu Landeros MD [facility] CPT-94552 Level 4 Est. Patient 14:28:34 CDT Tu Landeros MD [facility] CPT-99077 Level 3 Est. Patient 13:33:09 CDT Tu Landeros MD [facility] CPT-56189 Level 4 Est. Patient 14:29:21 CDT Tu Landeros MD [facility] CPT-75359 Level 4 Est. Patient 09:08:17 [employer] Tu Landeros MD [facility] CPT-18634 Level 4 Est. Patient 14:40:19 CDT Tu Landeros MD [facility] CPT-69612 Level 4 Est. Patient 14:06:04 [employer] Tu Landeros MD [facility] CPT-30838 Level 3 Est. Patient 14:05:18 [employer] Tu Landeros MD [facility] CPT-80135 Level 3 Est. Patient 10:06:54 [employer] Miranda Suresh APRN [facility] CPT-04241 Level 4 Est. Patient 13:50:18 [employer] Tu Landeros MD [facility] CPT-11516 Level 3 Est. Patient 10:30:04 CDT Tu Landeros MD [facility] CPT-15757 Level 4 Est. Patient 11:03:38 CDT Tu Landeros MD [facility] CPT-28485 Level 3 Est. Patient 10:20:44 CDT Fab Morales DO [facility] CPT-67616 Level 4 Est. Patient 14:38:57 CDT Tu Landeros MD [facility] CPT-46233 Level 4 Est. Patient 14:27:39 [employer] Tu Landeros MD [facility] CPT-38409 Level 4 Est. Patient 09:45:25 CDT Tu Landeros MD [facility] CPT-41402 Level 4 Est. Patient 09:05:20 [employer] Tu Landeros MD [facility] CPT-29220 Level 4 Est. Patient 14:09:06 CDT Tu Landeros MD [facility] CPT-92694 Level 3 Est. Patient 13:36:54 CDT Tu Landeros MD [facility] CPT-66078 Level 3 Est. Patient 08:59:14 CDT Tu Landeros MD [facility] CPT-53861 Level 3 Est. Patient 13:48:35 CDT Fab Morales DO [facility] CPT-98874 Level 4 Est. Patient 10:05:48 CDT Tu Landeros MD [facility] CPT-10723 Level 3 Est. Patient 13:38:42 CDT Marek BANKS [facility] CPT-58618 Level 5 Est. Patient 08:08:39 CDT Jerrica FRANCIS [facility] CPT-30238 Level 4 Est. Patient 14:23:38 CDT Tu Landeros MD [facility] CPT-67531 Level 3 Est. Patient 11:44:04 CDT Tu Landeros MD [facility] CPT-07996 Level 3 Est. Patient 11:03:20 [employer] Tu Landeros MD [facility] CPT-12888 Level 3 Est. Patient 11:03:14 [employer] Tu Landeros MD [facility] CPT-64342 Level 3 Est. Patient 12:42:49 CDT Tu Landeros MD [facility] CPT-04385 Level 3 Est. Patient 11:52:06 CDT Tu Landeros MD [facility] CPT-99537 Level 3 Est. Patient 13:58:11 CDT Tu Landeros MD [facility] CPT-44603 Level 3 Est. Patient 17:50:07 CDT Fab Morales DO [facility] CPT-28732 Level 3 Est. Patient 12:06:29 CDT Elvira Cervantes MD, PhD [facility] CPT-45503 Level 3 Est. Patient 15:50:32 CDT Tu Landeros MD [facility] CPT-69592 Level 4 Est. Patient 16:08:29 CDT Tu Landeros MD [facility] CPT-57398 Level 3 Est. Patient 16:04:19 CDT Tu Landeros MD [facility] CPT-09156 Level 3 Est. Patient 11:22:30 [employer] Tu Landeros MD [facility] CPT-92118 Level 4 Est. Patient 16:24:02 [employer] Tu Landeros MD [facility] CPT-62581 Level 3 Est. Patient 17:21:23 [employer] Tu Landeros MD [facility] Procedures Code Procedure Name Date Entry Date Standard Description CPT-31249 Shoulder, right, comp min 2V - XRAY USE ONLY 13:50:22 CDT CPT-G0009 Administration of Pneumococcal Vaccine 15:08:26 CDT CPT-32024 Prevnar 13 Intramuscular Suspension 15:08:26 CDT 10/08 CPT-G0439 [facility] Annual Wellness Exam 14:29:22 CDT CPT-23024 Venipuncture Draw Fee 13:15:35 CDT CPT-97401 Magnesium - LAB USE ONLY 11:14:20 [employer] CPT-88212 Lipid - LAB USE ONLY 11:14:20 [employer] CPT-86388 HGBA1C - LAB USE ONLY 11:14:20 [employer] CPT-57783 CMP - LAB USE ONLY 11:14:19 [employer] CPT-57635 CBC - LAB USE ONLY 11:14:19 [employer] CPT-85902 Venipuncture Draw Fee 11:14:18 [employer] CPT-06834 First Vx - Ix admin for Medicare patients 16:46:52 CDT CPT-39116 Fluzone Preservative Free Intramuscular Suspension 16:46 :51 CDT CPT-99875 CBC - LAB USE ONLY 17:14:46 CDT CPT-69734 HGBA1C - LAB USE ONLY 17:14:46 CDT CPT-69308 Venipuncture Draw Fee 17:14:46 CDT CPT-G0438 Initial Annual Wellness Exam 14:13:04 CDT CPT-05007 Breathing Tx 10:06:54 [employer] CPT-42086 Postop F/U Visit 10:02:45 CDT CPT-LR Lesion Removal 09:02:56 CDT CPT-JTINJ Asp/Joint Injection 15:51:27 [employer] CPT-OV Office Visit 15:52:02 [employer] CPT-OV Office Visit 15:45:11 CDT CPT-000 Give Zostavax 14:09:06 CDT CPT-14928 Administration single or combination vaccine inc oral 15 :19:04 CDT CPT-28306 Zoster Vaccine (Zostavax) 15:19:04 CDT CPT-43082 Administration single or combination vaccine inc oral 20 :51:03 CDT CPT-58222 Influenza split virus > age 3 20:51:03 CDT CPT-65131 No Charge Offi Visit 14:52:03 CDT CPT-OV Office Visit 14:57:43 CDT CPT-OV Office Visit 15:22:32 CDT CPT-00346 Administration single or combination vaccine inc oral 11 :33:15 CDT CPT-58666 Influenza split virus > age 3 11:33:15 CDT
--- OUTSIDE RECORDS SUMMARY | 2018-04-25 18:55 | XMS REPORT | Clinical Summary ---
Author Author Admin, SACHI Organization [employer] Address Unknown Phone Unavailable Allergies, Adverse Reactions, [...] po TID PRN Muscle Spasm CYCLOBENZAPRINE HCL 72420694055 Active Tu Landeros MD Active DICLOFENAC SODIUM 50 MG ORAL TBEC 1 po BID PRN Pain DICLOFENAC SODIUM 60040161344 Delores Landeros MD Active INVOKANA 100 MG ORAL TABS 1 po qd CANAGLIFLOZIN 48824527322 Active Tu Landeros MD Active GLIPIZIDE 5 MG ORAL TABS 1 po qd GLIPIZIDE 21497438314 No Longer Active Tu Landeros MD Active VENLAFAXINE HCL 75 MG ORAL TABS 1 po BID VENLAFAXINE HCL 71913611129 Active Tu Landeros MD Active GLIMEPIRIDE 1 MG ORAL TABS 1 po qd GLIMEPIRIDE 22707138745 No Longer Active Tu Landeros MD Active TRUE METRIX BLOOD GLUCOSE TEST INVITR STRP Test blood sugar BID Dx: E11.9 GLUCOSE BLOOD 28915346240 Active Tu Landeros MD Active TRUE METRIX AIR GLUCOSE METER W/DEVICE KIT Test blood glucose BID Dx: E11.9 BLOOD GLUCOSE MONITORING SUPPL 47721365783 Active Tu Landeros MD Active TRUETEST TEST INVITR STRP test blood sugar twice daily. DX 250.0 GLUCOSE BLOOD 29098351513 No Longer Active Mirna Stanley LPN Active TRUEDRAW LANCING DEVICE MISC test blood sugar twice daily dx: 250.00 LANCET DEVICES 52609091509 No Longer Active Mirna Stanley LPN Active ENALAPRIL MALEATE 20 MG TABS 2 po qd ENALAPRIL MALEATE 34426916470 Active Tu Landeros MD Active SUPER B COMPLEX/VITAMIN C TABS 1 qd B COMPLEX-C 83388985401 No Longer Active Tu Landeros MD Active ASPIRIN EC 81 MG ORAL TBEC 1 po qd ASPIRIN 56842098882 Active Tu Landeros MD Active GLUCOSAMINE 500 MG TABS 2 po qd GLUCOSAMINE Active Tu Landeros MD Active SIMVASTATIN 40 MG TABS 0.5 po qHS SIMVASTATIN 74726595072 Active Tu Landeros MD Active FISH OIL 1000 MG CAPS 1 po qd OMEGA-3 FATTY ACIDS 12053025498 Active Tu Landeros MD Active METFORMIN HCL 1000 MG TABS 1 po BID METFORMIN HCL 72731398392 Active Tu Landeros MD Active KLOR-CON 10 10 MEQ CR-TABS 2 po qd POTASSIUM CHLORIDE 96691213011 Active Tu Landeros MD Active FUROSEMIDE 40 MG TAB 1 po qd FUROSEMIDE 40663433041 Active Tu Landeros MD Active REQUIP 2 MG ORAL TABS 1 po qHS PRN Restless legs ROPINIROLE HCL 09027308918 Active Tu Landeros MD Active GABAPENTIN 100 MG CAPS 1 po BID GABAPENTIN 22222106507 Active Tu Landeros MD Active REQUIP 2 MG TABS Take one tablet at bedtime prn ROPINIROLE HCL 68839646985 No Longer Active Tu Landeros MD Active VENTOLIN HFA 108 (90 BASE) MCG/ACT AERS 1-2 puffs every 4 hours if needed for cough/congestion ALBUTEROL SULFATE 13583361563 No Longer Active Ambika Aden APRN Active ZITHROMAX 250 MG TAB 2 po today, then 1 po q days 2-5 AZITHROMYCIN 95857763493 No Longer Active Miranda Suresh APRN Active FLONASE 50 MCG/ACT SUSP 1 spray each nostril twice daily until bottle empty FLUTICASONE PROPIONATE 28070714385 No Longer Active Tu Landeros MD Active COLACE 100 MG CAP 1 po BID PRN Constipation DOCUSATE SODIUM 97122628341 Active Tu Landeros MD Active TRUERESULT BLOOD GLUCOSE W/DEVICE KIT test blood sugar twice daily dx 250.00 BLOOD GLUCOSE MONITORING SUPPL 69672022152 No Longer Active Tu Landeros MD Active TRUEDRAW LANCING DEVICE MISC Test twice a day dx 250.0 LANCET DEVICES 82522114980 No Longer Active uT Landeros MD Active PREDNISONE 20 MG TAB 2 tablets once daily for 2 days, then 1 tablet once daily for 2 days PREDNISONE 81462945624 No Longer Active Tu Landeros MD Active DICLOFENAC SODIUM 50 MG TBEC 1 tablet by mouth three times a day as needed DICLOFENAC SODIUM 05997721288 No Longer Active Fab W Andrew DO Active EMBRACE BLOOD GLUCOSE TEST STRP test blood sugar twice daily DX 250.0 2014 GLUCOSE BLOOD 77242987969 No Longer Active Tu Landeros MD Active TRUETEST TEST STRP test blood sugar three times daily dx: 250.00 GLUCOSE BLOOD 05776467811 No Longer Active Suze VOGEL Active TRUERESULT BLOOD GLUCOSE W/DEVICE KIT use to test blood sugar tid dx: 250.00 BLOOD GLUCOSE MONITORING SUPPL 40065585253 No Longer Active Suze Hardenehart RMA Active ALIGN 4 MG CAPS 1 tid PROBIOTIC PRODUCT 32294890948 No Longer Active Shaun Sy MD Active CIPRO 500 MG TABS 1 bid x 14 days start 09-28-13 CIPROFLOXACIN HCL 36670889862 No Longer Active Shaun Sy MD Active TRAMADOL HCL 50 MG TABS 1-2 tablets every 6 hours as needed for pain TRAMADOL HCL 80920103749 Active Tu Landeros MD Active HYDROCODONE-ACETAMINOPHEN 5-325 MG TABS 1 tab by mouth every 6 hours as needed for pain HYDROCODONE-ACETAMINOPHEN 31321469938 No Longer Active Tu Landeros MD Active OMEPRAZOLE 20 MG CPDR 1 po q a.m. OMEPRAZOLE 41785478133 Active Lesli Kellogg APRN Active GABAPENTIN 100 MG CAPS 1 po bid GABAPENTIN 47282560546 No Longer Active Tu Landeros MD Active B-12 100 MCG TABS Take one by mouth daily CYANOCOBALAMIN 67373248596 No Longer Active Tu Landeros MD Active BACTRIM DS 800-160 MG TABS 1 bid x 14 day start 09-28-13 SULFAMETHOXAZOLE-TRIMETHOPRIM 03980914847 No Longer Active Tu Landeros MD Active CARVEDILOL 12.5 MG TABS 1 po BID CARVEDILOL 98621899773 Active Tu Landeros MD Active TRILIPIX 135 MG CPDR 1 q hs CHOLINE FENOFIBRATE 23731491904 Active Tu Landeros MD Active FENOFIBRATE 145 MG TABS 1 po qd FENOFIBRATE 35031599379 No Longer Active JASPREET Perez Active OMEPRAZOLE 20 MG TBEC 1 PO 30 MIN BEFORE 1ST MEAL OMEPRAZOLE 71333805031 No Longer Active JASPREET Perez Active SIMVASTATIN 40 MG TABS Take one by mouth daily SIMVASTATIN 88807485152 No Longer Active JASPREET Perez Active VENLAFAXINE HCL 75 MG TABS 1 po BID VENLAFAXINE HCL 71552561111 No Longer Active JASPREET Perez Active CIPRO 500 MG TAB 1 tablet by mouth twice daily CIPROFLOXACIN HCL 96685416038 No Longer Active Tu Landeros MD Active VENLAFAXINE HCL 37.5 MG TABS 1 po BID VENLAFAXINE HCL 83431465554 No Longer Active Suze Nicole [facility] Active LAMISIL 250 MG TAB 1 po qd TERBINAFINE HCL 44265798121 No Longer Active Tu Landeros MD Active LORTAB 5 5-500 MG TABS 1/2 to 1 tablet by mouth every 4 hours as needed for pain HYDROCODONE-ACETAMINOPHEN 89525035839 No Longer Active Tu Landeros MD Active HYDROCODONE-ACETAMINOPHEN 5-500 MG TABS take one po Q 4-6 hours prn HYDROCODONE-ACETAMINOPHEN 14087739521 No Longer Active Tu Landeros MD Active BACTRIM DS 800-160 MG TABS 1 po BID x 7 days SULFAMETHOXAZOLE-TRIMETHOPRIM 40272475159 No Longer Active Tu Landeros MD Active VENLAFAXINE HCL 75 MG TABS 1 po BID VENLAFAXINE HCL 38035248305 No Longer Active Elvira Cervantes MD PhD Active TRAMADOL HCL 50 MG TABS 1 tablets every 6 hours as needed for pain TRAMADOL HCL 72983636764 No Longer Active Tu Landeros MD Active ACCU-CHEK FASTCLIX LANCETS MISC Use to check bloodsugar three times daily as needed LANCETS 61130228555 No Longer Active Tu Landeros MD Active ACCU-CHEK KEYONA PLUS STRP Use for testing bloodsugars three times daily as needed GLUCOSE BLOOD 70608688168 No Longer Active Tu Landeros MD Active ACCU-CHEK KEYONA PLUS W/DEVICE KIT Use for testing bloodsugars three times daily as needed BLOOD GLUCOSE MONITORING SUPPL 36016439915 No Longer Active Tu Landeros MD Active SPIRONOLACTONE 25 MG TAB 0.5 tablet by mouth daily SPIRONOLACTONE 77071470261 No Longer Active Tu Landeros MD Active ALPRAZOLAM 0.5 MG TABS 1 tab every 6hrs as needed ALPRAZOLAM 26684423322 No Longer Active Tu Landeros MD Active AUGMENTIN 875-125 MG TAB 1 tab by mouth twice daily with food AMOXICILLIN-POT CLAVULANATE 00546513642 No Longer Active Tu Landeros MD Active PREDNISONE 20 MG TAB 2 tabs daily for 3 days, 1 tab daily for 3 days, 1/2 tab daily for 2 days PREDNISONE 17392433252 No Longer Active Tu Landeros MD Active XANAX 0.5 MG TABS 1 tablet every 6 hrs prn ALPRAZOLAM 06402861485 No Longer Active Tu Landeros MD Active PREDNISONE 20 MG TAB 2 tabs daily for 3 days, 1 tab daily for 3 days, 1/2 tab daily for 2 days PREDNISONE 32764786233 No Longer Active Tu Landeros MD Active TRIAMCINOLONE ACETONIDE 0.1 % OINT Apply to affected areas TID for up to 2 weeks TRIAMCINOLONE ACETONIDE 10494147387 No Longer Active Tu Landeros MD Active LORTAB 5 5-500 MG TABS 1/2 to 1 tablet by mouth every 4 hours as needed for pain HYDROCODONE-ACETAMINOPHEN 56469691292 No Longer Active Tu Landeros MD Active MULTIVITAMINS TABS Take one by mouth daily MULTIPLE VITAMIN 44399276244 No Longer Active Tu Landeros MD Active MELATONIN 5 MG TABS Take one by mouth daily MELATONIN 05492235466 No Longer Active Tu Landeros MD Active SOMA 350 MG TAB 1 po q 6 hours prn spasm CARISOPRODOL 23972269163 No Longer Active Tu Landeros MD Active MECLIZINE HCL 25 MG CHEW TAB 1 four times a day as needed for dizziness 08/05 MECLIZINE HCL 31391529563 No Longer Active Fab Morales DO Active ANGEL BREEZE 2 TEST DISK test tid prn GLUCOSE BLOOD 18589127306 No Longer Active Negra Scott RN Active REGLAN 10 MG TAB 1 po TID PRN Nausea METOCLOPRAMIDE HCL 88198907700 No Longer Active Tu Landeros MD Active METFORMIN HCL 500 MG TABS 1 PO BID METFORMIN HCL 41683757188 No Longer Active Tu Landeros MD Active AMBIEN 10 MG TAB 1 tab by mouth at bedtime as needed for sleep ZOLPIDEM TARTRATE 52029381539 No Longer Active Tu Landeros MD Active FLUOXETINE HCL 40 MG CAPS 1 po q day FLUOXETINE HCL 18224909488 No Longer Active Mayra Tuluksak Active TRILIPIX 135 MG CPDR 1 po qd CHOLINE FENOFIBRATE 23755998558 No Longer Active Tu Landeros MD Active AMBIEN 10 MG TAB 1 tab by mouth at bedtime as needed for sleep AMBIEN 10 MG TAB 800500 ZOLPIDEM TARTRATE Inactive METFORMIN HCL 500 MG TABS 1 PO BID METFORMIN HCL 500 MG TABS 820380 METFORMIN HCL Inactive REGLAN 10 MG TAB 1 po TID PRN Nausea REGLAN 10 MG TAB 802513 METOCLOPRAMIDE HCL Inactive MECLIZINE HCL 25 MG CHEW TAB 1 four times a day as needed for dizziness 08/05 MECLIZINE HCL 25 MG CHEW TAB 076348 MECLIZINE HCL Inactive SOMA 350 MG TAB 1 po q 6 hours prn spasm SOMA 350 MG TAB 000204 CARISOPRODOL Inactive MELATONIN 5 MG TABS Take one by mouth daily MELATONIN 5 MG TABS 236311 MELATONIN Inactive MULTIVITAMINS TABS Take one by mouth daily MULTIVITAMINS TABS MULTIPLE VITAMIN Inactive LORTAB 5 5-500 MG TABS 1/2 to 1 tablet by mouth every 4 hours as needed for pain LORTAB 5 5-500 MG TABS HYDROCODONE- ACETAMINOPHEN Inactive XANAX 0.5 MG TABS 1 tablet every 6 hrs prn XANAX 0.5 MG TABS 545817 ALPRAZOLAM Inactive AUGMENTIN 875-125 MG TAB 1 tab by mouth twice daily with food AUGMENTIN 875-125 MG TAB 549529 AMOXICILLIN-POT CLAVULANATE Inactive ALPRAZOLAM 0.5 MG TABS 1 tab every 6hrs as needed ALPRAZOLAM 0.5 MG TABS 146845 ALPRAZOLAM Inactive SPIRONOLACTONE 25 MG TAB 0.5 tablet by mouth daily SPIRONOLACTONE 25 MG TAB 032672 SPIRONOLACTONE Inactive ACCU-CHEK KEYONA PLUS W/DEVICE KIT Use for testing bloodsugars three times daily as needed ACCU-CHEK KEYONA PLUS W/DEVICE KIT BLOOD GLUCOSE MONITORING SUPPL Inactive ACCU-CHEK KEYONA PLUS STRP Use for testing bloodsugars three times daily as needed ACCU-CHEK KEYONA PLUS STRP GLUCOSE BLOOD Inactive ACCU-CHEK FASTCLIX LANCETS MISC Use to check bloodsugar three times daily as needed ACCU-CHEK FASTCLIX LANCETS MISC 23751571836 [facility] In[facility] TRAMADOL HCL 50 MG TABS 1 tablets every 6 hours as needed for pain TRAMADOL HCL 50 MG TABS 891853 TRAMADOL HCL Inactive VENLAFAXINE HCL 75 MG TABS 1 po BID VENLAFAXINE HCL 75 MG TABS 462558 VENLAFAXINE HCL Inactive HYDROCODONE-ACETAMINOPHEN 5-500 MG TABS take one po Q 4-6 hours prn HYDROCODONE-ACETAMINOPHEN 5-500 MG TABS HYDROCODONE- ACETAMINOPHEN Inactive LORTAB 5 5-500 MG TABS 1/2 to 1 tablet by mouth every 4 hours as needed for pain LORTAB 5 5-500 MG TABS HYDROCODONE- ACETAMINOPHEN Inactive LAMISIL 250 MG TAB 1 po qd LAMISIL 250 MG TAB 592680 TERBINAFINE HCL Inactive VENLAFAXINE HCL 37.5 MG TABS 1 po BID VENLAFAXINE HCL 37.5 MG TABS 136333 VENLAFAXINE HCL Inactive CIPRO 500 MG TAB 1 tablet by mouth twice daily CIPRO 500 MG TAB 200976 CIPROFLOXACIN HCL Inactive VENLAFAXINE HCL 75 MG TABS 1 po BID VENLAFAXINE HCL 75 MG TABS 457959 VENLAFAXINE HCL Inactive SIMVASTATIN 40 MG TABS Take one by mouth daily SIMVASTATIN 40 MG TABS 318376 SIMVASTATIN Inactive OMEPRAZOLE 20 MG TBEC 1 PO 30 MIN BEFORE 1ST MEAL OMEPRAZOLE 20 MG TBEC 095669 OMEPRAZOLE Inactive FENOFIBRATE 145 MG TABS 1 po qd FENOFIBRATE 145 MG TABS 350809 FENOFIBRATE Inactive BACTRIM DS 800-160 MG TABS 1 bid x 14 day start 09-28-13 BACTRIM DS 800-160 MG TABS 054903 SULFAMETHOXAZOLE-TRIMETHOPRIM Inactive B-12 100 MCG TABS Take one by mouth daily B-12 100 MCG TABS CYANOCOBALAMIN Inactive GABAPENTIN 100 MG CAPS 1 po bid GABAPENTIN 100 MG CAPS 273537 GABAPENTIN Inactive HYDROCODONE-ACETAMINOPHEN 5-325 MG TABS 1 tab by mouth every 6 hours as needed for pain HYDROCODONE-ACETAMINOPHEN 5-325 MG TABS 065588 HYDROCODONE-ACETAMINOPHEN Inactive CIPRO 500 MG TABS 1 bid x 14 days start 09-28-13 CIPRO 500 MG TABS 615179 CIPROFLOXACIN HCL Inactive ALIGN 4 MG CAPS [...] as needed DICLOFENAC SODIUM 50 MG TBEC 390061 DICLOFENAC SODIUM Inactive PREDNISONE 20 MG TAB 2 tablets once daily for 2 days, then 1 tablet once daily for 2 days PREDNISONE 20 MG TAB 141079 PREDNISONE Inactive TRUEDRAW LANCING DEVICE MISC Test twice a day dx 250.0 TRUEDRAW LANCING DEVICE MISC LANCET DEVICES Inactive TRUERESULT BLOOD GLUCOSE W/DEVICE KIT test blood sugar twice daily dx 250.00 TRUERESULT BLOOD GLUCOSE W/DEVICE KIT BLOOD GLUCOSE MONITORING SUPPL Inactive FLONASE 50 MCG/ACT SUSP 1 spray each nostril twice daily until bottle empty FLONASE 50 MCG/ACT SUSP 4178851 FLUTICASONE PROPIONATE Inactive VENTOLIN HFA 108 (90 BASE) MCG/ACT AERS 1-2 puffs every 4 hours if needed for cough/congestion VENTOLIN HFA 108 (90 BASE) MCG/ACT AERS ALBUTEROL SULFATE Inactive REQUIP 2 MG TABS Take one tablet at bedtime prn REQUIP 2 MG TABS 086954 ROPINIROLE HCL Inactive SUPER B COMPLEX/VITAMIN C TABS 1 qd SUPER B COMPLEX/ VITAMIN C TABS 26812271363 B COMPLEX-C Inactive TRUEDRAW LANCING DEVICE MISC test blood sugar twice daily dx: 250.00 TRUEDRAW LANCING DEVICE MISC LANCET DEVICES Inactive TRUETEST TEST INVITR STRP test blood sugar twice daily. DX 250.0 TRUETEST TEST INVITR STRP GLUCOSE BLOOD Inactive TRIAMCINOLONE ACETONIDE 0.1 % OINT Apply to affected areas TID for up to 2 weeks TRIAMCINOLONE ACETONIDE 0.1 % OINT 7293200 TRIAMCINOLONE ACETONIDE Inactive PREDNISONE 20 MG TAB 2 tabs daily for 3 days, 1 tab daily for 3 days, 1/2 tab daily for 2 days PREDNISONE 20 MG TAB 752882 PREDNISONE Inactive PREDNISONE 20 MG TAB 2 tabs daily for 3 days, 1 tab daily for 3 days, 1/2 tab daily for 2 days PREDNISONE 20 MG TAB 338332 PREDNISONE Inactive BACTRIM DS 800-160 MG TABS 1 po BID x 7 days BACTRIM DS 800-160 MG TABS 780001 SULFAMETHOXAZOLE-TRIMETHOPRIM Inactive ZITHROMAX 250 MG TAB 2 po today, then 1 po q days 2-5 ZITHROMAX 250 MG TAB 1675464 AZITHROMYCIN Inactive Advance Directives Directive Description Start Date DISCUSSED WITH PATIENT -- NO DECISION MADE Immunizations Vaccine Administration Date Value Standard Description Seasonal influenza vaccine, injectable, containing preservative, for > 3 years old (Afluria, FluLaval, Fluzone, Fluvirin, Fluarix, Agriflu(>=18 yo)) Fluzone (>3 yrs.) [[id number]] Influenza, seasonal, injectable influenza immunization (Flu Vax) has been administered 02/22/2012 influenza virus vaccine, unspecified formulation Seasonal influenza vaccine, injectable, containing preservative, for > 3 years old (Afluria, FluLaval, Fluzone, Fluvirin, Fluarix, Agriflu(>=18 yo)) Fluzone (>3 yrs.) [[id number]] Influenza, seasonal, injectable Vital Signs Date Name [...] Magnesium - Chemistry sodium, serum 143 mmol/L 258-848 7955/01/10 carbon dioxide, venous blood 28.0 mmol/L 21.0-32.0 potassium, serum 4.5 mmol/L 3.5-5.2 chloride, serum 104 mmol/L 98-107 blood glucose 158 mg/dL 65-110 urea nitrogen, blood 23 mg/dL 7-18 creatinine, serum 1.06 mg/dL 0.55-1.30 alanine aminotransferase (SGPT), serum 42 U/L 12-78 aspartate aminotransferase (SGOT), serum 32 U/L 15-37 calcium, serum 9.3 mg/dL 8.5-10.1 bilirubin, serum, total 0.20 mg/dL 0.00-1.00 cholesterol, serum 177 mg/dL 235-372 0963/01/10 triglyceride, serum, fasting 320 mg/dL 30-200 HDL cholesterol, serum 46 mg/dL 32-96 LDL cholesterol, serum 67 mg/dL 0-130 Lab Report: COMPREHENSIVE METABOLIC PANEL, LIPID PANEL, HEMOGLOBIN A1c - Chemistry cholesterol, serum 135 mg/dL 568-048 8253/05/17 HDL cholesterol, serum 41 mg/dL > OR=46 triglyceride, serum, fasting 206 mg/dL <150 LDL cholesterol, serum 53 MG/DL (CALC) mg/dL <130 cholesterol/HDL ratio, serum 3.3 (calc) < OR=5.0 Lab Report: HGBA1C - Chemistry hemoglobin A1C, blood, as % of total hemoglobin 7.4 % 4.3-6.0 sodium, serum 140 mmol/L 079-551 2599/09/07 potassium, serum 4.3 mmol/L 3.5-5.2 chloride, serum [...] <30 Encounters Code Encounter Date Provider Facility CPT-18793 Level 3 Est. Patient 13:33:09 CDT Tu Landeros MD [facility] CPT-46310 Level 4 Est. Patient 14:29:21 CDT Tu Landeros MD [facility] CPT-61677 Level 4 Est. Patient 09:08:17 TRANSPORTATION PLANNING TECHNICIAN Tu Landeros MD [facility] CPT-80409 Level 4 Est. Patient 14:40:19 CDT Tu Landeros MD [facility] CPT-87310 Level 4 Est. Patient 14:06:04 TRANSPORTATION PLANNING TECHNICIAN uT Landeros MD [facility] CPT-91811 Level 3 Est. Patient 14:05:18 TRANSPORTATION PLANNING TECHNICIAN Tu Landeros MD [facility] CPT-63162 Level 3 Est. Patient 10:06:54 TRANSPORTATION PLANNING TECHNICIAN Miranda Suresh [facility] CPT-10129 Level 4 Est. Patient 13:50:18 TRANSPORTATION PLANNING TECHNICIAN Tu Landeros MD [facility] CPT-16834 Level 3 Est. Patient 10:30:04 CDT Tu Landeros MD [facility] CPT-84317 Level 4 Est. Patient 11:03:38 CDT Tu Landeros MD [facility] CPT-75588 Level 3 Est. Patient 10:20:44 CDT Fab Morales DO [facility] CPT-07005 Level 4 Est. Patient 14:38:57 CDT Tu Landeros MD [facility] CPT-76057 Level 4 Est. Patient 14:27:39 TRANSPORTATION PLANNING TECHNICIAN Tu Landeros MD [facility] CPT-35619 Level 4 Est. Patient 09:45:25 CDT Tu Landeros MD [facility] CPT-00989 Level 4 Est. Patient 09:05:20 TRANSPORTATION PLANNING TECHNICIAN Tu Landeros MD [facility] CPT-06511 Level 4 Est. Patient 14:09:06 CDT Tu Landeros MD [facility] CPT-57719 Level 3 Est. Patient 13:36:54 CDT Tu Landeros MD [facility] CPT-08995 Level 3 Est. Patient 08:59:14 CDT Tu Landeros MD [facility] CPT-03846 Level 3 Est. Patient 13:48:35 CDT Fab Morales DO [facility] CPT-59733 Level 4 Est. Patient 10:05:48 CDT Tu Landeros MD [facility] CPT-83384 Level 3 Est. Patient 13:38:42 CDT Marek BANKS [facility] CPT-79804 Level 5 Est. Patient 08:08:39 CDT Jerirca FRANCIS [facility] CPT-87008 Level 4 Est. Patient 14:23:38 CDT Tu Landeros MD [facility] CPT-04740 Level 3 Est. Patient 11:44:04 CDT Tu Landeros MD [facility] CPT-67054 Level 3 Est. Patient 11:03:20 TRANSPORTATION PLANNING TECHNICIAN Tu Landeros MD [facility] CPT-71888 Level 3 Est. Patient 11:03:14 TRANSPORTATION PLANNING TECHNICIAN Tu Landeros MD [facility] CPT-13219 Level 3 Est. Patient 12:42:49 CDT Tu Landeros MD [facility] CPT-01839 Level 3 Est. Patient 11:52:06 CDT Tu Landeros MD [facility] CPT-45870 Level 3 Est. Patient 13:58:11 CDT Tu Landeros MD [facility] CPT-46577 Level 3 Est. Patient 17:50:07 CDT Fab Morales DO [facility] CPT-97686 Level 3 Est. Patient 12:06:29 CDT Elvira Cervantes MD [facility] CPT-38253 Level 3 Est. Patient 15:50:32 CDT Tu Landeros MD [facility] CPT-27551 Level 4 Est. Patient 16:08:29 CDT Tu Landeros MD [facility] CPT-47082 Level 3 Est. Patient 16:04:19 CDT Tu Landeros MD [facility] CPT-72458 Level 3 Est. Patient 11:22:30 TRANSPORTATION PLANNING TECHNICIAN Tu Landeros MD [facility] CPT-77778 Level 4 Est. Patient 16:24:02 TRANSPORTATION PLANNING TECHNICIAN Tu Landeros MD [facility] CPT-10473 Level 3 Est. Patient 17:21:23 TRANSPORTATION PLANNING TECHNICIAN Tu Landeros MD [facility] Procedures Code Procedure Name Date Entry Date Standard Description CPT-57684 Shoulder, right, comp min 2V - XRAY USE ONLY 13:50:22 CDT CPT-G0009 Administration of Pneumococcal Vaccine 15:08:26 CDT CPT-67966 Prevnar 13 Intramuscular Suspension 15:08:26 CDT 10/08 CPT-G0439 [facility] Annual Wellness Exam 14:29:22 CDT CPT-22301 Venipuncture Draw Fee 13:15:35 CDT CPT-95416 Magnesium - LAB USE ONLY 11:14:20 TRANSPORTATION PLANNING TECHNICIAN CPT-47025 Lipid - LAB USE ONLY 11:14:20 TRANSPORTATION PLANNING TECHNICIAN CPT-34013 HGBA1C - LAB USE ONLY 11:14:20 TRANSPORTATION PLANNING TECHNICIAN CPT-88642 CMP - LAB USE ONLY 11:14:19 TRANSPORTATION PLANNING TECHNICIAN CPT-64624 CBC - LAB USE ONLY 11:14:19 TRANSPORTATION PLANNING TECHNICIAN CPT-17473 Venipuncture Draw Fee 11:14:18 TRANSPORTATION PLANNING TECHNICIAN CPT-42738 First Vx - Ix admin for Medicare patients 16:46:52 CDT CPT-87402 Fluzone Preservative Free Intramuscular Suspension 16:46 :51 CDT CPT-72362 CBC - LAB USE ONLY 17:14:46 CDT CPT-99207 HGBA1C - LAB USE ONLY 17:14:46 CDT CPT-10066 Venipuncture Draw Fee 17:14:46 CDT CPT-G0438 Initial Annual Wellness Exam 14:13:04 CDT CPT-63348 Breathing Tx 10:06:54 TRANSPORTATION PLANNING TECHNICIAN CPT-05604 Postop F/U Visit 10:02:45 CDT CPT-LR Lesion Removal 09:02:56 CDT CPT-JTINJ Asp/Joint Injection 15:51:27 TRANSPORTATION PLANNING TECHNICIAN CPT-OV Office Visit 15:52:02 TRANSPORTATION PLANNING TECHNICIAN CPT-OV Office Visit 15:45:11 CDT CPT-000 Give Zostavax 14:09:06 CDT CPT-00115 Administration single or combination vaccine inc oral 15 :19:04 CDT CPT-89320 Zoster Vaccine (Zostavax) 15:19:04 CDT CPT-78784 Administration single or combination vaccine inc oral 20 :51:03 CDT CPT-18967 Influenza split virus > age 3 20:51:03 CDT CPT-36638 No Charge Offi Visit 14:52:03 CDT CPT-OV Office Visit 14:57:43 CDT CPT-OV Office Visit 15:22:32 CDT CPT-24691 Administration single or combination vaccine inc oral 11 :33:15 CDT CPT-27366 Influenza split virus > age 3 11:33:15 CDT
--- OUTSIDE RECORDS SUMMARY | 2018-04-25 18:58 | XMS REPORT | Clinical Summary ---
Author Author Admin, SACHI Clemons [facility] Address Unknown Phone Unavailable Allergies, Adverse Reactions, Alerts Allergy Name Reaction Description Start Date Severity Status Provider DANIELLE migraine h/a Critical Active Luisa HU migraine h/a Moderate No Longer Active Tu Landeros MD TRICOR rash, trouble breathing Critical Active Tu Ladneros MD SULINDAC Critical Active Tu Landeros MD [...] tablet by mouth twice daily METFORMIN HCL 20558214975 Active Tu Landeros MD Active TRUEDRAW LANCING DEVICE MISC test blood sugar twice daily dx: 250.00 LANCET DEVICES 00223302819 Active Tu Landeros MD Active TRUEDRAW LANCING DEVICE MISC Test twice a day dx 250.0 LANCET DEVICES 13758125335 Active Tu Landeros MD Active TRUERESULT BLOOD GLUCOSE W/DEVICE KIT test blood sugar twice daily dx 250.00 BLOOD GLUCOSE MONITORING SUPPL 32534989347 Active Tu Landeros MD Active TRUETEST TEST INVITR STRP test blood sugar twice daily. DX 250.0 GLUCOSE BLOOD 74361840898 Active Tu Landeros MD Active EMBRACE BLOOD GLUCOSE TEST STRP test blood sugar twice daily DX 250.0 2014 GLUCOSE BLOOD 35902241124 No Longer Active Tu Landeros MD Active TRUETEST TEST STRP test blood sugar three times daily dx: 250.00 GLUCOSE BLOOD 28184631233 No Longer Active Suze VOGEL Active TRUERESULT BLOOD GLUCOSE W/DEVICE KIT use to test blood sugar tid dx: 250.00 BLOOD GLUCOSE MONITORING SUPPL 23609276997 No Longer Active Suze Corey RMA Active ALIGN 4 MG CAPS 1 tid PROBIOTIC PRODUCT 64390391450 No Longer Active Shaun Sy MD Active CIPRO 500 MG TABS 1 bid x 14 days start 09-28-13 CIPROFLOXACIN HCL 39091970669 No Longer Active Shaun Sy MD Active TRAMADOL HCL 50 MG TABS 1-2 tablets every 6 hours as needed for pain TRAMADOL HCL 71706398576 Active Fab Morales DO Active HYDROCODONE-ACETAMINOPHEN 5-325 MG TABS 1 tab by mouth every 6 hours as needed for pain HYDROCODONE-ACETAMINOPHEN 82895068567 No Longer Active Tu Landeros MD Active OMEPRAZOLE 20 MG CPDR 1 po q a.m. OMEPRAZOLE 70064977643 Active Tu Landeros MD Active GABAPENTIN 100 MG CAPS 1 po bid GABAPENTIN 57242079063 No Longer Active Tu Landeros MD Active B-12 100 MCG TABS Take one by mouth daily CYANOCOBALAMIN 04884717926 No Longer Active Tu Landeros MD Active GABAPENTIN 100 MG CAPS by mouth twice a day GABAPENTIN 29438238353 Active Tu Landeros MD Active BACTRIM DS 800-160 MG TABS 1 bid x 14 day start 09-28-13 SULFAMETHOXAZOLE-TRIMETHOPRIM 03051950216 No Longer Active Tu Landeros MD Active SIMVASTATIN 40 MG TABS 1 tab daily at bedtime SIMVASTATIN 15968467321 Active Tu Landeros MD Active CARVEDILOL 12.5 MG TABS 1 po BID CARVEDILOL 91688006157 Active Tu Landeros MD Active SUPER B COMPLEX/VITAMIN C TABS 1 qd B COMPLEX-C 13991192242 Active JASPREET Perez Active TRILIPIX 135 MG CPDR 1 q hs CHOLINE FENOFIBRATE 08969579201 Active Tu Landeros MD Active FENOFIBRATE 145 MG TABS 1 po qd FENOFIBRATE 02647305723 No Longer Active JASPREET Perez Active OMEPRAZOLE 20 MG TBEC 1 PO 30 MIN BEFORE 1ST MEAL OMEPRAZOLE 63274459743 No Longer Active JASPREET Perez Active SIMVASTATIN 40 MG TABS Take one by mouth daily SIMVASTATIN 84277733265 No Longer Active Gustavo HoffeauJASPREET Active VENLAFAXINE HCL 37.5 MG TABS 1 bid VENLAFAXINE HCL 92529842848 Active Tu Landeros MD Active VENLAFAXINE HCL 75 MG TABS 1 po BID VENLAFAXINE HCL 66496858265 No Longer Active Gustavo HoffeauJASPREET Active CIPRO 500 MG TAB 1 tablet by mouth twice daily CIPROFLOXACIN HCL 17731017436 No Longer Active Tu Landeros MD Active VENLAFAXINE HCL 37.5 MG TABS 1 po BID VENLAFAXINE HCL 87213427849 No Longer Active Suzebianca Nicole A Active [employer] STOOL SOFTENER 100 MG CAPS 1 tab daily DOCUSATE SODIUM 00360929881 Active Tu Landeros MD Active LAMISIL 250 MG TAB 1 po qd TERBINAFINE HCL 47275217660 No Longer Active Tu Landeros MD Active LORTAB 5 5-500 MG TABS 1/2 to 1 tablet by mouth every 4 hours as needed for pain HYDROCODONE-ACETAMINOPHEN 24056054481 No Longer Active Tu Landeros MD Active ENALAPRIL MALEATE 20 MG TABS 1.5 po qd ENALAPRIL MALEATE 59261313530 Active Tu Landeros MD Active HYDROCODONE-ACETAMINOPHEN 5-500 MG TABS take one po Q 4-6 hours prn HYDROCODONE-ACETAMINOPHEN 99681089147 No Longer Active Tu Landeros MD Active BACTRIM DS 800-160 MG TABS 1 po BID x 7 days SULFAMETHOXAZOLE-TRIMETHOPRIM 90749040303 No Longer Active Tu Landeros MD Active VENLAFAXINE HCL 75 MG TABS 1 po BID VENLAFAXINE HCL 67799896567 No Longer Active Elvira Cervantes MD PhD Active TRAMADOL HCL 50 MG TABS 1 tablets every 6 hours as needed for pain TRAMADOL HCL 91314718591 No Longer Active Tu Landeros MD Active ACCU-CHEK FASTCLIX LANCETS MISC Use to check bloodsugar three times daily as needed LANCETS 59432191553 No Longer Active Tu Landeros MD Active ACCU-CHEK KEYONA PLUS STRP Use for testing bloodsugars three times daily as needed GLUCOSE BLOOD 70070934396 No Longer Active Tu Landeros MD Active ACCU-CHEK KEYONA PLUS W/DEVICE KIT Use for testing bloodsugars three times daily as needed BLOOD GLUCOSE MONITORING SUPPL 66395374990 No Longer Active Tu Landeros MD Active SPIRONOLACTONE 25 MG TAB 0.5 tablet by mouth daily SPIRONOLACTONE 17017928577 No Longer Active Tu Landeros MD Active ALPRAZOLAM 0.5 MG TABS 1 tab every 6hrs as needed ALPRAZOLAM 98608345714 No Longer Active Tu Landeros MD Active AUGMENTIN 875-125 MG TAB 1 tab by mouth twice daily with food AMOXICILLIN-POT CLAVULANATE 10220344969 No Longer Active Tu Landeros MD Active PREDNISONE 20 MG TAB 2 tabs daily for 3 days, 1 tab daily for 3 days, 1/2 tab daily for 2 days PREDNISONE 78510656081 No Longer Active Tu Landeros MD Active XANAX 0.5 MG TABS 1 tablet every 6 hrs prn ALPRAZOLAM 58698516986 No Longer Active Tu Landeros MD Active PREDNISONE 20 MG TAB 2 tabs daily for 3 days, 1 tab daily for 3 days, 1/2 tab daily for 2 days PREDNISONE 11501096506 No Longer Active Tu Landeros MD Active TRIAMCINOLONE ACETONIDE 0.1 % OINT Apply to affected areas TID for up to 2 weeks TRIAMCINOLONE ACETONIDE 03786093244 No Longer Active Tu Landeros MD Active LORTAB 5 5-500 MG TABS 1/2 to 1 tablet by mouth every 4 hours as needed for pain HYDROCODONE-ACETAMINOPHEN 51082073832 No Longer Active Tu Landeros MD Active MULTIVITAMINS TABS Take one by mouth daily MULTIPLE VITAMIN 53339371317 No Longer Active Tu Landeros MD Active MELATONIN 5 MG TABS Take one by mouth daily MELATONIN 79579384652 No Longer Active Tu Landeros MD Active SOMA 350 MG TAB 1 po q 6 hours prn spasm CARISOPRODOL 75548870036 No Longer Active Tu Landeros MD Active MECLIZINE HCL 25 MG CHEW TAB 1 four times a day as needed for dizziness 08/05 MECLIZINE HCL 64995037046 No Longer Active Fab Morales DO Active ANGEL BREEZE 2 TEST DISK test tid prn GLUCOSE BLOOD 15286123647 No Longer Active Negra Scott RN Active DICLOFENAC SODIUM 50 MG TBEC 1 tablet by mouth three times a day as needed DICLOFENAC SODIUM 87689860833 Active Tu Landeros MD Active REGLAN 10 MG TAB 1 po TID PRN Nausea METOCLOPRAMIDE HCL 01147720475 No Longer Active Tu Landeros MD Active METFORMIN HCL 500 MG TABS 1 PO BID METFORMIN HCL 32003702180 No Longer Active Tu Landeros MD Active AMBIEN 10 MG TAB 1 tab by mouth at bedtime as needed for sleep ZOLPIDEM TARTRATE 32670826698 No Longer Active Tu Landeros MD Active FLUOXETINE HCL 40 MG CAPS 1 po q day FLUOXETINE HCL 49155251738 No Longer Active Mayra [place] Active FISH OIL 1000 MG CAPS Take one by mouth daily OMEGA-3 FATTY ACIDS 67215074806 Active Tu Landeros MD Active GLUCOSAMINE 500 MG TABS Take 2 tab po qd GLUCOSAMINE 32643008433 Active Tu Landeros MD Active TRILIPIX 135 MG CPDR 1 po qd CHOLINE FENOFIBRATE 45068700418 No Longer Active Tu Landeros MD Active ASPIRIN 81 MG CHEW TAB 1 tablet by mouth daily ASPIRIN 28493677989 Active Tu Landeros MD Active FUROSEMIDE 40 MG TAB 1 tablet by mouth daily FUROSEMIDE 54777207042 Active Tu Landeros MD Active REQUIP 2 MG TABS Take one tablet at bedtime prn ROPINIROLE HCL 67742620586 Active Tu Landeros MD Active KLOR-CON 10 10 MEQ CR-TABS TAKE 2 TABS DAILY POTASSIUM CHLORIDE 88105620789 Active Tu Landeros MD Active AMBIEN 10 MG TAB 1 tab by mouth at bedtime as needed for sleep AMBIEN 10 MG TAB 159365 ZOLPIDEM TARTRATE Inactive METFORMIN HCL 500 MG TABS 1 PO BID METFORMIN HCL 500 MG TABS 283761 METFORMIN HCL Inactive REGLAN 10 MG TAB 1 po TID PRN Nausea REGLAN 10 MG TAB 976866 METOCLOPRAMIDE HCL Inactive MECLIZINE HCL 25 MG CHEW TAB 1 four times a day as needed for dizziness 08/05 MECLIZINE HCL 25 MG CHEW TAB 388988 MECLIZINE HCL Inactive SOMA 350 MG TAB 1 po q 6 hours prn spasm SOMA 350 MG TAB 740073 CARISOPRODOL Inactive MELATONIN 5 MG TABS Take one by mouth daily MELATONIN 5 MG TABS 613537 MELATONIN Inactive MULTIVITAMINS TABS Take one by mouth daily MULTIVITAMINS TABS MULTIPLE VITAMIN Inactive LORTAB 5 5-500 MG TABS 1/2 to 1 tablet by mouth every 4 hours as needed for pain LORTAB 5 5-500 MG TABS HYDROCODONE- ACETAMINOPHEN Inactive XANAX 0.5 MG TABS 1 tablet every 6 hrs prn XANAX 0.5 MG TABS 733791 ALPRAZOLAM Inactive AUGMENTIN 875-125 MG TAB 1 tab by mouth twice daily with food AUGMENTIN 875-125 MG TAB 116666 AMOXICILLIN-POT CLAVULANATE Inactive ALPRAZOLAM 0.5 MG TABS 1 tab every 6hrs as needed ALPRAZOLAM 0.5 MG TABS 493858 ALPRAZOLAM Inactive SPIRONOLACTONE 25 MG TAB 0.5 tablet by mouth daily SPIRONOLACTONE 25 MG TAB 169242 SPIRONOLACTONE Inactive ACCU-CHEK KEYONA PLUS W/DEVICE KIT Use for testing bloodsugars three times daily as needed ACCU-CHEK KEYONA PLUS W/DEVICE KIT BLOOD GLUCOSE MONITORING SUPPL Inactive ACCU-CHEK KEYONA PLUS STRP Use for testing bloodsugars three times daily as needed ACCU-CHEK KEYONA PLUS STRP GLUCOSE BLOOD Inactive ACCU-CHEK FASTCLIX LANCETS MISC Use to check bloodsugar three times daily as needed ACCU-CHEK FASTCLIX LANCETS MISC 10374567978 LANCETS Inactive TRAMADOL HCL 50 MG TABS 1 tablets every 6 hours as needed for pain TRAMADOL HCL 50 MG TABS 301350 TRAMADOL HCL Inactive VENLAFAXINE HCL 75 MG TABS 1 po BID VENLAFAXINE HCL 75 MG TABS 516128 VENLAFAXINE HCL Inactive HYDROCODONE-ACETAMINOPHEN 5-500 MG TABS take one po Q 4-6 hours prn HYDROCODONE-ACETAMINOPHEN 5-500 MG TABS HYDROCODONE- ACETAMINOPHEN Inactive LORTAB 5 5-500 MG TABS 1/2 to 1 tablet by mouth every 4 hours as needed for pain LORTAB 5 5-500 MG TABS HYDROCODONE- ACETAMINOPHEN Inactive LAMISIL 250 MG TAB 1 po qd LAMISIL 250 MG TAB 244078 TERBINAFINE HCL Inactive VENLAFAXINE HCL 37.5 MG TABS 1 po BID VENLAFAXINE HCL 37.5 MG TABS 373422 VENLAFAXINE HCL Inactive CIPRO 500 MG TAB 1 tablet by mouth twice daily CIPRO 500 MG TAB 631637 CIPROFLOXACIN HCL Inactive VENLAFAXINE HCL 75 MG TABS 1 po BID VENLAFAXINE HCL 75 MG TABS 339480 VENLAFAXINE HCL Inactive SIMVASTATIN 40 MG TABS Take one by mouth daily SIMVASTATIN 40 MG TABS 090413 SIMVASTATIN Inactive OMEPRAZOLE 20 MG TBEC 1 PO 30 MIN BEFORE 1ST MEAL OMEPRAZOLE 20 MG TBEC 468833 OMEPRAZOLE Inactive FENOFIBRATE 145 MG TABS 1 po qd FENOFIBRATE 145 MG TABS 556473 FENOFIBRATE Inactive BACTRIM DS 800-160 MG TABS 1 bid x 14 day start 09-28-13 BACTRIM DS 800-160 MG TABS SULFAMETHOXAZOLE-TRIMETHOPRIM Inactive B-12 100 MCG TABS Take one by mouth daily B-12 100 MCG TABS CYANOCOBALAMIN Inactive GABAPENTIN 100 MG CAPS 1 po bid GABAPENTIN 100 MG CAPS 757895 GABAPENTIN Inactive HYDROCODONE-ACETAMINOPHEN 5-325 MG TABS 1 tab by mouth every 6 hours as needed for pain HYDROCODONE-ACETAMINOPHEN 5-325 MG TABS 273307 HYDROCODONE-ACETAMINOPHEN Inactive CIPRO 500 MG TABS 1 bid x 14 days start 09-28-13 CIPRO 500 MG TABS 098067 CIPROFLOXACIN HCL Inactive ALIGN 4 MG CAPS [...] 2 weeks TRIAMCINOLONE ACETONIDE 0.1 % OINT 6256900 TRIAMCINOLONE ACETONIDE Inactive PREDNISONE 20 MG TAB 2 tabs daily for 3 days, 1 tab daily for 3 days, 1/2 tab daily for 2 days PREDNISONE 20 MG TAB 775091 PREDNISONE Inactive PREDNISONE 20 MG TAB 2 tabs daily for 3 days, 1 tab daily for 3 days, 1/2 tab daily for 2 days PREDNISONE 20 MG TAB 285518 PREDNISONE Inactive BACTRIM DS 800-160 MG TABS 1 po BID x 7 days BACTRIM DS 800-160 MG TABS SULFAMETHOXAZOLE-TRIMETHOPRIM Inactive Immunizations Vaccine Administration Date Value Standard Description Seasonal influenza vaccine, injectable, containing preservative, for > 3 years old (Afluria, FluLaval, Fluzone, Fluvirin, Fluarix, Agriflu(>=18 yo)) Fluzone (>3 yrs.) [[id number]] Influenza, seasonal, injectable influenza immunization (Flu Vax) has been administered 02/22/2012 influenza virus vaccine, unspecified formulation Seasonal influenza vaccine, injectable, containing preservative, for > 3 years old (Afluria, FluLaval, Fluzone, Fluvirin, Fluarix, Agriflu(>=18 yo)) Fluzone (>3 yrs.) [[id number]] Influenza, seasonal, injectable Vital Signs Date Name [...] CBC - Chemistry sodium, serum 143 mmol/L 554-495 1393/03/10 potassium, serum 4.9 mmol/L 3.5-5.2 chloride, serum [...] mg/dL Encounters Code Encounter Date Provider Facility CPT-83549 Level 4 Est. Patient 14:38:57 CDT Tu Landeros MD [facility] CPT-23774 Level 4 Est. Patient 14:27:39 REGISTRATION CLERK Tu Landeros MD [facility] CPT-48572 Level 4 Est. Patient 09:45:25 CDT Tu Landeros MD [facility] CPT-20168 Level 4 Est. Patient 09:05:20 REGISTRATION CLERK Tu Landeros MD [facility] CPT-51100 Level 4 Est. Patient 14:09:06 CDT Tu Landeros MD [facility] CPT-60328 Level 3 Est. Patient 13:36:54 CDT Tu Landeros MD [facility] CPT-62152 Level 3 Est. Patient 08:59:14 CDT Tu Landeros MD [facility] CPT-61469 Level 3 Est. Patient 13:48:35 CDT Fab Morales DO [facility] CPT-52864 Level 4 Est. Patient 10:05:48 CDT Tu Landeros MD [facility] CPT-07043 Level 3 Est. Patient 13:38:[address] [facility] CPT-75489 Level 5 Est. Patient 08:08:[address] [facility] CPT-35913 Level 4 Est. Patient 14:23:38 CDT Tu Landeros MD [facility] CPT-51878 Level 3 Est. Patient 11:44:04 CDT Tu Landeros MD [facility] CPT-02958 Level 3 Est. Patient 11:03:20 REGISTRATION CLERK Tu Landeros MD [facility] CPT-93907 Level 3 Est. Patient 11:03:14 REGISTRATION CLERK Tu Landeros MD [facility] CPT-11435 Level 3 Est. Patient 12:42:49 CDT Tu Landeros MD [facility] CPT-19524 Level 3 Est. Patient 11:52:06 CDT Tu Landeros MD [facility] CPT-75932 Level 3 Est. Patient 13:58:11 CDT Tu Landeros MD [facility] CPT-30757 Level 3 Est. Patient 17:50:07 CDT Fab Morales DO [facility] CPT-36949 Level 3 Est. Patient 12:06:29 CDT Elvira Cervantes MD [facility] CPT-71144 Level 3 Est. Patient 15:50:32 CDT Tu Landeros MD [facility] CPT-47858 Level 4 Est. Patient 16:08:29 CDT Tu Landeros MD [facility] CPT-87993 Level 3 Est. Patient 16:04:19 CDT Tu Landeros MD [facility] CPT-74644 Level 3 Est. Patient 11:22:30 REGISTRATION CLERK Tu Landeros MD [facility] CPT-78711 Level 4 Est. Patient 16:24:02 REGISTRATION CLERK Tu Landeros MD [facility] CPT-52516 Level 3 Est. Patient 17:21:23 REGISTRATION CLERK Tu Landeros MD [facility] Procedures Code Procedure Name Date Entry Date Standard Description CPT-JTINJ Asp/Joint Injection 15:51:27 REGISTRATION CLERK CPT-OV Office Visit 15:52:02 REGISTRATION CLERK CPT-OV Office Visit 15:45:11 CDT CPT-000 Give Zostavax 14:09:06 CDT CPT-84009 Administration single or combination vaccine inc oral 15 :19:04 CDT CPT-62867 Zoster Vaccine (Zostavax) 15:19:04 CDT CPT-56185 Administration single or combination vaccine inc oral 20 :51:03 CDT CPT-84465 Influenza split virus > age 3 20:51:03 CDT CPT-90208 No Charge Offi Visit 14:52:03 CDT CPT-OV Office Visit 14:57:43 CDT CPT-OV Office Visit 15:22:32 CDT CPT-86181 Administration single or combination vaccine inc oral 11 :33:15 CDT CPT-55576 Influenza split virus > age 3 11:33:15 CDT
--- OUTSIDE RECORDS SUMMARY | 2018-04-25 18:59 | XMS REPORT | Clinical Summary ---
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 Acute upper respiratory infections of unspecified site [...] each nostril q day 07/15 MOMETASONE FUROATE 22606864089 Active Lesli Kellogg APRN Active GUAIFENESIN ER 600 MG ORAL TABLET EXTENDED RELEASE 12 HOUR 1 twice a day as needed for congestion GUAIFENESIN 64201832253 Active Lesli Kellogg APRN Active MAGNESIUM OXIDE 400 MG ORAL TABLET 1 po BID MAGNESIUM OXIDE 31693822509 Active Tu Landeros MD Active SIMVASTATIN 20 MG ORAL TABLET 0.5 po qHS SIMVASTATIN 21890634715 Active Tu Landeros MD Active DICLOFENAC SODIUM 75 MG ORAL TABLET DELAYED RELEASE 1 po BID PRN Pain DICLOFENAC SODIUM 35632412953 No Longer Active Tu Landeros MD Active GABAPENTIN 100 MG ORAL CAPSULE 1 po TID GABAPENTIN 62487989415 Active Tu Landeros MD Active DICLOFENAC SODIUM 50 MG ORAL TABLET DELAYED RELEASE 1 po BID PRN Pain DICLOFENAC SODIUM 16312251619 No Longer Active Tu Landeros MD Active CYCLOBENZAPRINE HCL 10 MG ORAL TABLET 1 po TID PRN Muscle Spasm CYCLOBENZAPRINE HCL 52309077764 No Longer Active Tu Landeros MD Active INVOKANA 100 MG ORAL TABLET 1 po qd CANAGLIFLOZIN 17698494254 Active Tu Landeros MD Active GLIPIZIDE 5 MG ORAL TABLET 1 po qd GLIPIZIDE 44641942090 No Longer Active Tu Landeros MD Active VENLAFAXINE HCL 75 MG ORAL TABLET 1 po BID VENLAFAXINE HCL 48839005114 Active Tu Landeros MD Active GLIMEPIRIDE 1 MG ORAL TABLET 1 po qd GLIMEPIRIDE 98143577529 No Longer Active Tu Landeros MD Active TRUE METRIX BLOOD GLUCOSE TEST IN VITRO STRIP Test blood sugar BID Dx: E11.9 GLUCOSE BLOOD 73715224492 Active Tu Landeros MD Active TRUE METRIX AIR GLUCOSE METER w/Device KIT Test blood glucose BID Dx: E11.9 BLOOD GLUCOSE MONITORING SUPPL 17042635578 Active Tu Landeros MD Active TRUETEST TEST IN VITRO STRIP test blood sugar twice daily. DX 250.0 GLUCOSE BLOOD 62438899140 No Longer Active Mirna Stanley LPN Active TRUEDRAW LANCING DEVICE test blood sugar twice daily dx: 250.00 LANCET DEVICES 31689992946 No Longer Active Mirna Stanley LPN Active ENALAPRIL MALEATE 20 MG ORAL TABLET 2 po qd ENALAPRIL MALEATE 52216653344 Active uT Landeros MD Active SUPER B COMPLEX/VITAMIN C ORAL TABLET 1 qd B COMPLEX- C 31119217874 No Longer Active Tu Landeros MD Active ASPIRIN EC 81 MG ORAL TABLET DELAYED RELEASE 1 po qd ASPIRIN 07385493654 Active Tu Landeros MD Active GLUCOSAMINE 500 MG TABS 2 po qd GLUCOSAMINE Active Tu Landeros MD Active FISH OIL 1000 MG ORAL CAPSULE 1 po qd OMEGA-3 FATTY ACIDS 77662175053 Active Tu Landeros MD Active METFORMIN HCL 1000 MG ORAL TABLET 1 po BID METFORMIN HCL 14414690301 Active Tu Landeros MD Active KLOR-CON 10 10 MEQ ORAL TABLET EXTENDED RELEASE 2 po qd POTASSIUM CHLORIDE 02175162832 Active Tu Landeros MD Active FUROSEMIDE 40 MG ORAL TABLET 1 po qd FUROSEMIDE 26085134192 Active Tu Landeros MD Active REQUIP 2 MG ORAL TABLET 1 po qHS PRN Restless legs ROPINIROLE HCL 62505905620 Active Tu Landeros MD Active REQUIP 2 MG ORAL TABLET Take one tablet at bedtime prn ROPINIROLE HCL 60651668423 No Longer Active Tu Landeros MD Active VENTOLIN HFA 108 (90 Base) MCG/ACT INHALATION AEROSOL SOLUTION 1-2 puffs every 4 hours if needed for cough/congestion ALBUTEROL SULFATE 91571131037 No Longer Active Ambika Aden APRN Active ZITHROMAX 250 MG ORAL TABLET 2 po today, then 1 po q days 2-5 AZITHROMYCIN 09929221119 No Longer Active Miranda Farah APRN Active FLONASE 50 MCG/ACT NASAL SUSPENSION 1 spray each nostril twice daily until bottle empty FLUTICASONE PROPIONATE 80230529350 No Longer Active Tu Landeors MD Active COLACE 100 MG ORAL CAPSULE 1 po BID PRN Constipation DOCUSATE SODIUM 10233685383 Active Tu Landeros MD Active TRUERESULT BLOOD GLUCOSE w/Device KIT test blood sugar twice daily dx 250.00 BLOOD GLUCOSE MONITORING SUPPL 78848220876 No Longer Active Tu Landeros MD Active TRUEDRAW LANCING DEVICE Test twice a day dx 250.0 LANCET DEVICES 28885448421 No Longer Active Tu Landeros MD Active PREDNISONE 20 MG ORAL TABLET 2 tablets once daily for 2 days, then 1 tablet once daily for 2 days PREDNISONE 69852115969 No Longer Active Tu Landeros MD Active DICLOFENAC SODIUM 50 MG ORAL TABLET DELAYED RELEASE 1 tablet by mouth three times a day as needed DICLOFENAC SODIUM 35832904983 No Longer Active Fab Morales DO Active EMBRACE BLOOD GLUCOSE TEST IN VITRO STRIP test blood sugar twice daily DX 250.0 GLUCOSE BLOOD 76282223558 No Longer Active Tu Landeros MD Active TRUETEST TEST IN VITRO STRIP test blood sugar three times daily dx: 250.00 GLUCOSE BLOOD 04136123024 No Longer Active Suze Nicole NURYSA Active TRUERESULT BLOOD GLUCOSE w/Device KIT use to test blood sugar tid dx: 250.00 BLOOD GLUCOSE MONITORING SUPPL 90907323449 No Longer Active Suze Nicole NURYSA Active ALIGN 4 MG ORAL CAPSULE 1 tid PROBIOTIC PRODUCT 05231920978 No Longer Active Shaun Sy MD Active CIPRO 500 MG ORAL TABLET 1 bid x 14 days start 09-28-13 CIPROFLOXACIN HCL 72980289302 No Longer Active Shaun Sy MD Active TRAMADOL HCL 50 MG ORAL TABLET 1-2 tablets every 6 hours as needed for pain TRAMADOL HCL 28451985009 Active Tu Landeros MD Active HYDROCODONE-ACETAMINOPHEN 5-325 MG ORAL TABLET 1 tab by mouth every 6 hours as needed for pain HYDROCODONE-ACETAMINOPHEN 68397722075 No Longer Active Tu Landeros MD Active OMEPRAZOLE 20 MG ORAL CAPSULE DELAYED RELEASE 1 po q a.m. OMEPRAZOLE 35611666963 Active Fab Morales DO Active GABAPENTIN 100 MG ORAL CAPSULE 1 po bid GABAPENTIN 10088342054 No Longer Active Tu Landeros MD Active B-12 100 MCG ORAL TABLET Take one by mouth daily CYANOCOBALAMIN 54564163509 No Longer Active Tu Landeros MD Active BACTRIM DS 800-160 MG ORAL TABLET 1 bid x 14 day start 09-28-13 SULFAMETHOXAZOLE-TRIMETHOPRIM 48515950903 No Longer Active Tu Landeros MD Active CARVEDILOL 12.5 MG ORAL TABLET 1 po BID CARVEDILOL 30956854397 Active Tu Landeros MD Active TRILIPIX 135 MG ORAL CAPSULE DELAYED RELEASE 1 q hs CHOLINE FENOFIBRATE 60277530273 Active Tu Landeros MD Active FENOFIBRATE 145 MG ORAL TABLET 1 po qd FENOFIBRATE 22961417468 No Longer Active JASPREET Perez Active OMEPRAZOLE 20 MG ORAL TABLET DELAYED RELEASE 1 PO 30 MIN BEFORE 1ST MEAL 2010 OMEPRAZOLE 61179214911 No Longer Active JASPREET Perez Active SIMVASTATIN 40 MG ORAL TABLET Take one by mouth daily SIMVASTATIN 40348674814 No Longer Active JASPREET Perez Active VENLAFAXINE HCL 75 MG ORAL TABLET 1 po BID VENLAFAXINE HCL 66229128596 No Longer Active JASPREET Perez Active CIPRO 500 MG ORAL TABLET 1 tablet by mouth twice daily CIPROFLOXACIN HCL 18629374012 No Longer Active Tu Landeros MD Active VENLAFAXINE HCL 37.5 MG ORAL TABLET 1 po BID VENLAFAXINE HCL 76752659977 No Longer Active Suzebianca Nicole RMA Active LAMISIL 250 MG ORAL TABLET 1 po qd TERBINAFINE HCL 32810871609 No Longer Active Tu Landeros MD Active LORTAB 5-500 MG ORAL TABLET 1/2 to 1 tablet by mouth every 4 hours as needed for pain HYDROCODONE-ACETAMINOPHEN 69984833870 No Longer Active Tu Landeros MD Active HYDROCODONE-ACETAMINOPHEN 5-500 MG ORAL TABLET take one po Q 4-6 hours prn HYDROCODONE-ACETAMINOPHEN 56094187409 No Longer Active Tu Landeros MD Active BACTRIM DS 800-160 MG ORAL TABLET 1 po BID x 7 days SULFAMETHOXAZOLE-TRIMETHOPRIM 92681160001 No Longer Active Tu Landeros MD Active VENLAFAXINE HCL 75 MG ORAL TABLET 1 po BID VENLAFAXINE HCL 25807323225 No Longer Active Elvira Cervantes MD PhD Active TRAMADOL HCL 50 MG ORAL TABLET 1 tablets every 6 hours as needed for pain TRAMADOL HCL 88610739226 No Longer Active Tu Landeros MD Active ACCU-CHEK FASTCLIX LANCETS Use to check bloodsugar three times daily as needed LANCETS 20061977389 No Longer Active Tu Landeros MD Active ACCU-CHEDawson KEYONA PLUS IN VITRO STRIP Use for testing bloodsugars three times daily as needed GLUCOSE BLOOD 57128044499 No Longer Active Tu Landeros MD Active ACCU-CHEK KEYONA PLUS w/Device KIT Use for testing bloodsugars three times daily as needed BLOOD GLUCOSE MONITORING SUPPL 12719246761 No Longer Active Tu Landeros MD Active SPIRONOLACTONE 25 MG ORAL TABLET 0.5 tablet by mouth daily 09/09 SPIRONOLACTONE 04624576702 No Longer Active Tu Landeros MD Active ALPRAZOLAM 0.5 MG ORAL TABLET 1 tab every 6hrs as needed ALPRAZOLAM 37397445713 No Longer Active Tu Landeros MD Active AUGMENTIN 875-125 MG ORAL TABLET 1 tab by mouth twice daily with food AMOXICILLIN-POT CLAVULANATE 21159648247 No Longer Active Tu Landeros MD Active PREDNISONE 20 MG ORAL TABLET 2 tabs daily for 3 days, 1 tab daily for 3 days, 1/2 tab daily for 2 days PREDNISONE 24760183614 No Longer Active Tu Landeros MD Active XANAX 0.5 MG ORAL TABLET 1 tablet every 6 hrs prn ALPRAZOLAM 40802534498 No Longer Active Tu Landeros MD Active PREDNISONE 20 MG ORAL TABLET 2 tabs daily for 3 days, 1 tab daily for 3 days, 1/2 tab daily for 2 days PREDNISONE 05380103530 No Longer Active Tu Landeros MD Active TRIAMCINOLONE ACETONIDE 0.1 % EXTERNAL OINTMENT Apply to affected areas TID for up to 2 weeks TRIAMCINOLONE ACETONIDE 70559942240 No Longer Active Tu Landeros MD Active LORTAB 5-500 MG ORAL TABLET 1/2 to 1 tablet by mouth every 4 hours as needed for pain HYDROCODONE-ACETAMINOPHEN 73068500273 No Longer Active Tu Landeros MD Active MULTIVITAMINS TABS Take one by mouth daily MULTIPLE VITAMIN 95482419291 No Longer Active Tu Landeros MD Active MELATONIN 5 MG ORAL TABLET Take one by mouth daily MELATONIN 34642623751 No Longer Active Tu Landeros MD Active SOMA 350 MG ORAL TABLET 1 po q 6 hours prn spasm CARISOPRODOL 61060236130 No Longer Active Tu Landeros MD Active MECLIZINE HCL 25 MG ORAL TABLET CHEWABLE 1 four times a day as needed for dizziness MECLIZINE HCL 79098589391 No Longer Active Fab Morales DO Active ANGEL BREEZE 2 TEST IN VITRO DISK test tid prn GLUCOSE BLOOD 83628909849 No Longer Active Negra Scott RN Active REGLAN 10 MG ORAL TABLET 1 po TID PRN Nausea METOCLOPRAMIDE HCL 56202920867 No Longer Active Tu Landeros MD Active METFORMIN HCL 500 MG ORAL TABLET 1 PO BID METFORMIN HCL 54039107026 No Longer Active Tu Landeros MD Active AMBIEN 10 MG ORAL TABLET 1 tab by mouth at bedtime as needed for sleep 06/10 ZOLPIDEM TARTRATE 97142406689 No Longer Active Tu Landeros MD Active FLUOXETINE HCL 40 MG ORAL CAPSULE 1 po q day FLUOXETINE HCL 54387646070 No Longer Active Mayra [place] Active TRILIPIX 135 MG ORAL CAPSULE DELAYED RELEASE 1 po qd CHOLINE FENOFIBRATE 58733252123 No Longer Active Tu Landeros MD Active AMBIEN 10 MG ORAL TABLET 1 tab by mouth at bedtime as needed for sleep 06/10 AMBIEN 10 MG ORAL TABLET 675227 ZOLPIDEM TARTRATE Inactive METFORMIN HCL 500 MG ORAL TABLET 1 PO BID METFORMIN HCL 500 MG ORAL TABLET 735020 METFORMIN HCL Inactive REGLAN 10 MG ORAL TABLET 1 po TID PRN Nausea REGLAN 10 MG ORAL TABLET 935986 METOCLOPRAMIDE HCL Inactive MECLIZINE HCL 25 MG ORAL TABLET CHEWABLE 1 four times a day as needed for dizziness MECLIZINE HCL 25 MG ORAL TABLET CHEWABLE 884600 MECLIZINE HCL Inactive SOMA 350 MG ORAL TABLET 1 po q 6 hours prn spasm SOMA 350 MG ORAL TABLET 205788 CARISOPRODOL Inactive MELATONIN 5 MG ORAL TABLET Take one by mouth daily MELATONIN 5 MG ORAL TABLET 168059 MELATONIN Inactive MULTIVITAMINS TABS Take one by mouth daily MULTIVITAMINS TABS MULTIPLE VITAMIN Inactive LORTAB 5-500 MG ORAL TABLET 1/2 to 1 tablet by mouth every 4 hours as needed for pain LORTAB 5-500 MG ORAL TABLET 485002 HYDROCODONE-ACETAMINOPHEN Inactive XANAX 0.5 MG ORAL TABLET 1 tablet every 6 hrs prn XANAX 0.5 MG ORAL TABLET 064692 ALPRAZOLAM Inactive AUGMENTIN 875-125 MG ORAL TABLET 1 tab by mouth twice daily with food AUGMENTIN 875-125 MG ORAL TABLET 437223 AMOXICILLIN-POT CLAVULANATE Inactive ALPRAZOLAM 0.5 MG ORAL TABLET 1 tab every 6hrs as needed ALPRAZOLAM 0.5 MG ORAL TABLET 488921 ALPRAZOLAM Inactive SPIRONOLACTONE 25 MG ORAL TABLET 0.5 tablet by mouth daily 09/09 SPIRONOLACTONE 25 MG ORAL TABLET 013017 SPIRONOLACTONE Inactive ACCU-CHEK KEYONA PLUS w/Device KIT [...] times daily as needed ACCU-CHEK FASTCLIX LANCETS 39198663396 LANCETS Inactive TRAMADOL HCL 50 MG ORAL TABLET 1 tablets every 6 hours as needed for pain TRAMADOL HCL 50 MG ORAL TABLET 115246 TRAMADOL HCL Inactive VENLAFAXINE HCL 75 MG ORAL TABLET 1 po BID VENLAFAXINE HCL 75 MG ORAL TABLET 324046 VENLAFAXINE HCL Inactive HYDROCODONE-ACETAMINOPHEN 5-500 MG ORAL TABLET take one po Q 4-6 hours prn HYDROCODONE-ACETAMINOPHEN 5-500 MG ORAL TABLET 672012 HYDROCODONE-ACETAMINOPHEN Inactive LORTAB 5-500 MG ORAL TABLET 1/2 to 1 tablet by mouth every 4 hours as needed for pain LORTAB 5-500 MG ORAL TABLET 140332 HYDROCODONE-ACETAMINOPHEN Inactive LAMISIL 250 MG ORAL TABLET 1 po qd LAMISIL 250 MG ORAL TABLET 556275 TERBINAFINE HCL Inactive VENLAFAXINE HCL 37.5 MG ORAL TABLET 1 po BID VENLAFAXINE HCL 37.5 MG ORAL TABLET 248147 VENLAFAXINE HCL Inactive CIPRO 500 MG ORAL TABLET 1 tablet by mouth twice daily CIPRO 500 MG ORAL TABLET 037521 CIPROFLOXACIN HCL Inactive VENLAFAXINE HCL 75 MG ORAL TABLET 1 po BID VENLAFAXINE HCL 75 MG ORAL TABLET 865245 VENLAFAXINE HCL Inactive SIMVASTATIN 40 MG ORAL TABLET Take one by mouth daily SIMVASTATIN 40 MG ORAL TABLET 430004 SIMVASTATIN Inactive OMEPRAZOLE 20 MG ORAL TABLET DELAYED RELEASE 1 PO 30 MIN BEFORE 1ST MEAL 2010 OMEPRAZOLE 20 MG ORAL TABLET DELAYED RELEASE 292152 OMEPRAZOLE Inactive FENOFIBRATE 145 MG ORAL TABLET 1 po qd FENOFIBRATE 145 MG ORAL TABLET 771327 FENOFIBRATE Inactive BACTRIM DS 800-160 MG ORAL TABLET 1 bid x 14 day start 09-28-13 BACTRIM DS 800-160 MG ORAL TABLET 944055 SULFAMETHOXAZOLE- TRIMETHOPRIM Inactive B-12 100 MCG ORAL TABLET Take one by mouth daily B-12 100 MCG ORAL TABLET CYANOCOBALAMIN Inactive GABAPENTIN 100 MG ORAL CAPSULE 1 po bid GABAPENTIN 100 MG ORAL CAPSULE 374296 GABAPENTIN Inactive HYDROCODONE-ACETAMINOPHEN 5-325 MG ORAL TABLET 1 tab by mouth every 6 hours as needed for pain HYDROCODONE-ACETAMINOPHEN 5-325 MG ORAL TABLET 860748 HYDROCODONE-ACETAMINOPHEN Inactive CIPRO 500 MG ORAL TABLET 1 bid x 14 days start 09-28-13 CIPRO 500 MG ORAL TABLET 533953 CIPROFLOXACIN HCL Inactive ALIGN 4 MG ORAL [...] SODIUM 50 MG ORAL TABLET DELAYED RELEASE 920125 DICLOFENAC SODIUM Inactive PREDNISONE 20 MG ORAL TABLET 2 tablets once daily for 2 days, then 1 tablet once daily for 2 days PREDNISONE 20 MG ORAL TABLET 954840 PREDNISONE Inactive TRUEDRAW LANCING DEVICE Test twice a day dx 250.0 TRUEDRAW LANCING DEVICE LANCET DEVICES Inactive TRUERESULT BLOOD GLUCOSE w/Device KIT test blood sugar twice daily dx 250.00 TRUERESULT BLOOD GLUCOSE w/Device KIT BLOOD GLUCOSE MONITORING SUPPL Inactive FLONASE 50 MCG/ACT NASAL SUSPENSION 1 spray each nostril twice daily until bottle empty FLONASE 50 MCG/ACT NASAL SUSPENSION 8713623 FLUTICASONE PROPIONATE Inactive VENTOLIN HFA 108 (90 Base) MCG/ACT INHALATION AEROSOL SOLUTION 1-2 puffs every 4 hours if needed for cough/congestion VENTOLIN HFA 108 (90 Base) MCG/ACT INHALATION AEROSOL SOLUTION ALBUTEROL SULFATE Inactive REQUIP 2 MG ORAL TABLET Take one tablet at bedtime prn REQUIP 2 MG ORAL TABLET 706732 ROPINIROLE HCL Inactive SUPER B COMPLEX/VITAMIN C ORAL TABLET 1 qd SUPER B COMPLEX/VITAMIN C ORAL TABLET 52909143914 B COMPLEX-C Inactive TRUEDRAW LANCING DEVICE test blood sugar twice daily dx: 250.00 TRUEDRAW LANCING DEVICE LANCET DEVICES Inactive TRUETEST TEST IN VITRO STRIP test blood sugar twice daily. DX 250.0 TRUETEST TEST IN VITRO STRIP GLUCOSE BLOOD Inactive CYCLOBENZAPRINE HCL 10 MG ORAL TABLET 1 po TID PRN Muscle Spasm CYCLOBENZAPRINE HCL 10 MG ORAL TABLET 163274 CYCLOBENZAPRINE HCL Inactive DICLOFENAC SODIUM 50 MG ORAL TABLET DELAYED RELEASE 1 po BID PRN Pain DICLOFENAC SODIUM 50 MG ORAL TABLET DELAYED RELEASE 064192 DICLOFENAC SODIUM Inactive DICLOFENAC SODIUM 75 MG ORAL TABLET DELAYED RELEASE 1 po BID PRN Pain DICLOFENAC SODIUM 75 MG ORAL TABLET DELAYED RELEASE 333041 DICLOFENAC SODIUM Inactive TRIAMCINOLONE ACETONIDE 0.1 % EXTERNAL OINTMENT Apply to affected areas TID for up to 2 weeks TRIAMCINOLONE ACETONIDE 0.1 % EXTERNAL OINTMENT 2710975 TRIAMCINOLONE ACETONIDE Inactive PREDNISONE 20 MG ORAL TABLET 2 tabs daily for 3 days, 1 tab daily for 3 days, 1/2 tab daily for 2 days PREDNISONE 20 MG ORAL TABLET 506156 PREDNISONE Inactive PREDNISONE 20 MG ORAL TABLET 2 tabs daily for 3 days, 1 tab daily for 3 days, 1/2 tab daily for 2 days PREDNISONE 20 MG ORAL TABLET 445346 PREDNISONE Inactive BACTRIM DS 800-160 MG ORAL TABLET 1 po BID x 7 days BACTRIM DS 800-160 MG ORAL TABLET 054568 SULFAMETHOXAZOLE-TRIMETHOPRIM Inactive ZITHROMAX 250 MG ORAL TABLET 2 po today, then 1 po q days 2-5 ZITHROMAX 250 MG ORAL TABLET 230201 AZITHROMYCIN Inactive Advance Directives Directive Description Start Date DISCUSSED WITH PATIENT -- NO DECISION MADE Immunizations Vaccine Administration Date Value Standard Description Seasonal influenza vaccine, injectable, containing preservative, for > 3 years old (Afluria, FluLaval, Fluzone, Fluvirin, Fluarix, Agriflu(>=18 yo)) Fluzone (>3 yrs.) [[id number]] Influenza, seasonal, injectable influenza immunization (Flu Vax) has been administered 02/22/2012 influenza virus vaccine, unspecified formulation Seasonal influenza vaccine, injectable, containing preservative, for > 3 years old (Afluria, FluLaval, Fluzone, Fluvirin, Fluarix, Agriflu(>=18 yo)) Fluzone (>3 yrs.) [[id number]] Influenza, seasonal, injectable Vital Signs Date Name [...] ... - Chemistry sodium, serum 141 mmol/L 978-834 3704/01/16 carbon dioxide, venous blood 28.3 mmol/L 21.0-32.0 [...] 6.7 % 4.3-6.0 cholesterol, serum 106 mg/dL 002-343 6481/01/16 triglyceride, serum, fasting 173 mg/dL 30-200 HDL [...] A1c - Chemistry cholesterol, serum 135 mg/dL 292-752 0302/05/17 HDL cholesterol, serum 41 mg/dL > OR=46 triglyceride, serum, fasting 206 mg/dL <150 LDL cholesterol, serum 53 MG/DL (CALC) mg/dL <130 cholesterol/HDL ratio, serum 3.3 (calc) < OR=5.0 Lab Report: HGBA1C - Chemistry hemoglobin A1C, blood, as % of total hemoglobin 6.5 % 4.3-6.0 Encounters Code Encounter Date Provider Facility CPT-38985 Level 3 Est. Patient 10:13:19 TEAM ASSEMBLER Lesli Kellogg PASTORAL WORKER [facility] CPT-61150 Level 4 Est. Patient 13:42:02 TEAM ASSEMBLER Tu Landeros MD [facility] CPT-27522 Level 3 Est. Patient 14:20:36 CDT Tu Landeros MD [facility] CPT-09810 Level 4 Est. Patient 14:28:34 CDT Tu Landeros MD [facility] CPT-37460 Level 3 Est. Patient 13:33:09 CDT Tu Landeros MD [facility] CPT-12723 Level 4 Est. Patient 14:29:21 CDT Tu Landeros MD [facility] CPT-70441 Level 4 Est. Patient 09:08:17 TEAM ASSEMBLER Tu Landeros MD [facility] CPT-50301 Level 4 Est. Patient 14:40:19 CDT Tu Landeros MD [facility] CPT-79936 Level 4 Est. Patient 14:06:04 TEAM ASSEMBLER Tu Landeros MD [facility] CPT-11107 Level 3 Est. Patient 14:05:18 TEAM ASSEMBLER Tu Landeros MD [facility] CPT-66786 Level 3 Est. Patient 10:06:54 TEAM ASSEMBLER Miranda Farah PASTORAL WORKER [facility] CPT-30709 Level 4 Est. Patient 13:50:18 TEAM ASSEMBLER Tu Landeros MD [facility] CPT-42447 Level 3 Est. Patient 10:30:04 CDT Tu Landeros MD [facility] CPT-09281 Level 4 Est. Patient 11:03:38 CDT Tu Landeros MD [facility] CPT-12110 Level 3 Est. Patient 10:20:44 CDT Fab Morales DO [facility] CPT-07484 Level 4 Est. Patient 14:38:57 CDT Tu Landeros MD [facility] CPT-37372 Level 4 Est. Patient 14:27:39 TEAM ASSEMBLER Tu Landeros MD [facility] CPT-99643 Level 4 Est. Patient 09:45:25 CDT Tu Landeros MD [facility] CPT-89424 Level 4 Est. Patient 09:05:20 TEAM ASSEMBLER Tu Landeros MD [facility] CPT-51731 Level 4 Est. Patient 14:09:06 CDT Tu Landeros MD [facility] CPT-45464 Level 3 Est. Patient 13:36:54 CDT Tu Landeros MD [facility] CPT-11519 Level 3 Est. Patient 08:59:14 CDT Tu Landeros MD [facility] CPT-95632 Level 3 Est. Patient 13:48:35 CDT Fab Morales DO [facility] CPT-67301 Level 4 Est. Patient 10:05:48 CDT Tu Landeros MD [facility] CPT-24780 Level 3 Est. Patient 13:38:42 CDT Marek BANKS [facility] CPT-31137 Level 5 Est. Patient 08:08:39 CDT Jerrica FRANCIS [facility] CPT-64679 Level 4 Est. Patient 14:23:38 CDT Tu Landeros MD [facility] CPT-29427 Level 3 Est. Patient 11:44:04 CDT Tu Landeros MD [facility] CPT-04071 Level 3 Est. Patient 11:03:20 TEAM ASSEMBLER Tu Landeros MD [facility] CPT-22429 Level 3 Est. Patient 11:03:14 TEAM ASSEMBLER Tu Landeros MD [facility] CPT-78495 Level 3 Est. Patient 12:42:49 CDT Tu Landeros MD [facility] CPT-68817 Level 3 Est. Patient 11:52:06 CDT Tu Landeros MD [facility] CPT-29545 Level 3 Est. Patient 13:58:11 CDT Tu Landeros MD [facility] CPT-00867 Level 3 Est. Patient 17:50:07 CDT Fab Morales DO [facility] CPT-93742 Level 3 Est. Patient 12:06:29 CDT Elvira Cervantes MD PhD [facility] CPT-69893 Level 3 Est. Patient 15:50:32 CDT Tu Landeros MD [facility] CPT-72206 Level 4 Est. Patient 16:08:29 CDT Tu Landeros MD [facility] CPT-30207 Level 3 Est. Patient 16:04:19 CDT Tu Landeros MD [facility] CPT-55801 Level 3 Est. Patient 11:22:30 TEAM ASSEMBLER uT Landeros MD [facility] CPT-08345 Level 4 Est. Patient 16:24:02 TEAM ASSEMBLER Tu Landeros MD [facility] CPT-82276 Level 3 Est. Patient 17:21:23 TEAM ASSEMBLER Tu Landeros MD [facility] Procedures Code Procedure Name Date Entry Date Standard Description CPT-06932 Shoulder, right, comp min 2V - XRAY USE ONLY 13:50:22 CDT CPT-G0009 Administration of Pneumococcal Vaccine 15:08:26 CDT CPT-79722 Prevnar 13 Intramuscular Suspension 15:08:26 CDT 10/08 CPT-G0439 Subsequent Annual Wellness Exam 14:29:22 CDT CPT-82099 Venipuncture Draw Fee 13:15:35 CDT CPT-73633 Magnesium - LAB USE ONLY 11:14:20 TEAM ASSEMBLER CPT-72597 Lipid - LAB USE ONLY 11:14:20 TEAM ASSEMBLER CPT-03455 HGBA1C - LAB USE ONLY 11:14:20 TEAM ASSEMBLER CPT-61045 CMP - LAB USE ONLY 11:14:19 TEAM ASSEMBLER CPT-53852 CBC - LAB USE ONLY 11:14:19 TEAM ASSEMBLER CPT-49491 Venipuncture Draw Fee 11:14:18 TEAM ASSEMBLER CPT-80383 First Vx - Ix admin for Medicare patients 16:46:52 CDT CPT-13448 Fluzone Preservative Free Intramuscular Suspension 16:46 :51 CDT CPT-83349 CBC - LAB USE ONLY 17:14:46 CDT CPT-16641 HGBA1C - LAB USE ONLY 17:14:46 CDT CPT-03001 Venipuncture Draw Fee 17:14:46 CDT CPT-G0438 Initial Annual Wellness Exam 14:13:04 CDT CPT-41303 Breathing Tx 10:06:54 TEAM ASSEMBLER CPT-30293 Postop F/U Visit 10:02:45 CDT CPT-LR Lesion Removal 09:02:56 CDT CPT-JTINJ Asp/Joint Injection 15:51:27 TEAM ASSEMBLER CPT-OV Office Visit 15:52:02 TEAM ASSEMBLER CPT-OV Office Visit 15:45:11 CDT CPT-000 Give Zostavax 14:09:06 CDT CPT-75271 Administration single or combination vaccine inc oral 15 :19:04 CDT CPT-53595 Zoster Vaccine (Zostavax) 15:19:04 CDT CPT-38087 Administration single or combination vaccine inc oral 20 :51:03 CDT CPT-69744 Influenza split virus > age 3 20:51:03 CDT CPT-47176 No Charge Offi Visit 14:52:03 CDT CPT-OV Office Visit 14:57:43 CDT CPT-OV Office Visit 15:22:32 CDT CPT-77457 Administration single or combination vaccine inc oral 11 :33:15 CDT CPT-99347 Influenza split virus > age 3 11:33:15 CDT
--- OUTSIDE RECORDS SUMMARY | 2018-04-25 19:01 | XMS REPORT | Clinical Summary ---
Author Author Admin, SACHI Organization [employer] Address Unknown Phone Unavailable Allergies, Adverse Reactions, [...] po TID PRN Muscle Spasm CYCLOBENZAPRINE HCL 29569197013 Active Tu Landeros MD Active DICLOFENAC SODIUM 50 MG ORAL TBEC 1 po BID PRN Pain DICLOFENAC SODIUM 07191834235 Delores Landeros MD Active INVOKANA 100 MG ORAL TABS 1 po qd CANAGLIFLOZIN 12164703320 Active Tu Landeros MD Active GLIPIZIDE 5 MG ORAL TABS 1 po qd GLIPIZIDE 93657671870 No Longer Active Tu Landeros MD Active VENLAFAXINE HCL 75 MG ORAL TABS 1 po BID VENLAFAXINE HCL 21047436209 Active Tu Landeros MD Active GLIMEPIRIDE 1 MG ORAL TABS 1 po qd GLIMEPIRIDE 21681055194 No Longer Active Tu Landeros MD Active TRUE METRIX BLOOD GLUCOSE TEST INVITR STRP Test blood sugar BID Dx: E11.9 GLUCOSE BLOOD 24684761994 Active Tu Landeros MD Active TRUE METRIX AIR GLUCOSE METER W/DEVICE KIT Test blood glucose BID Dx: E11.9 BLOOD GLUCOSE MONITORING SUPPL 10163795854 Active Tu Landeros MD Active TRUETEST TEST INVITR STRP test blood sugar twice daily. DX 250.0 GLUCOSE BLOOD 78222935888 No Longer Active Mirna Stanley LPN Active TRUEDRAW LANCING DEVICE MISC test blood sugar twice daily dx: 250.00 LANCET DEVICES 30428445075 No Longer Active Mirna Stanley LPN Active ENALAPRIL MALEATE 20 MG TABS 2 po qd ENALAPRIL MALEATE 07401037350 Active Lesli Kellogg APRN Active SUPER B COMPLEX/VITAMIN C TABS 1 qd B COMPLEX-C 23847175640 No Longer Active Tu Landeros MD Active ASPIRIN EC 81 MG ORAL TBEC 1 po qd ASPIRIN 27887071073 Active Tu Landeros MD Active GLUCOSAMINE 500 MG TABS 2 po qd GLUCOSAMINE Active Tu Landeros MD Active SIMVASTATIN 40 MG TABS 0.5 po qHS SIMVASTATIN 99715052825 Active Tu Landeros MD Active FISH OIL 1000 MG CAPS 1 po qd OMEGA-3 FATTY ACIDS 74450443796 Active Tu Landeros MD Active METFORMIN HCL 1000 MG TABS 1 po BID METFORMIN HCL 88796430508 Active Tu Landeros MD Active KLOR-CON 10 10 MEQ CR-TABS 2 po qd POTASSIUM CHLORIDE 03819920908 Active Tu Landeros MD Active FUROSEMIDE 40 MG TAB 1 po qd FUROSEMIDE 54801409192 Active Tu Landeros MD Active REQUIP 2 MG ORAL TABS 1 po qHS PRN Restless legs ROPINIROLE HCL 32057537802 Active Tu Landeros MD Active GABAPENTIN 100 MG CAPS 1 po BID GABAPENTIN 37474433318 Active Tu Landeros MD Active REQUIP 2 MG TABS Take one tablet at bedtime prn ROPINIROLE HCL 57358530337 No Longer Active Tu Landeros MD Active VENTOLIN HFA 108 (90 BASE) MCG/ACT AERS 1-2 puffs every 4 hours if needed for cough/congestion ALBUTEROL SULFATE 29253027762 No Longer Active Ambika Aden APRN Active ZITHROMAX 250 MG TAB 2 po today, then 1 po q days 2-5 AZITHROMYCIN 79003315155 No Longer Active Miranda Suresh APRN Active FLONASE 50 MCG/ACT SUSP 1 spray each nostril twice daily until bottle empty FLUTICASONE PROPIONATE 22593577008 No Longer Active Tu Landeros MD Active COLACE 100 MG CAP 1 po BID PRN Constipation DOCUSATE SODIUM 48291174625 Active Tu Landeros MD Active TRUERESULT BLOOD GLUCOSE W/DEVICE KIT test blood sugar twice daily dx 250.00 BLOOD GLUCOSE MONITORING SUPPL 35226826820 No Longer Active Tu Landeros MD Active TRUEDRAW LANCING DEVICE MISC Test twice a day dx 250.0 LANCET DEVICES 64515917328 No Longer Active Tu Landeros MD Active PREDNISONE 20 MG TAB 2 tablets once daily for 2 days, then 1 tablet once daily for 2 days PREDNISONE 96723883429 No Longer Active Tu Landeros MD Active DICLOFENAC SODIUM 50 MG TBEC 1 tablet by mouth three times a day as needed DICLOFENAC SODIUM 10579356397 No Longer Active Fab Morales DO Active EMBRACE BLOOD GLUCOSE TEST STRP test blood sugar twice daily DX 250.0 2014 GLUCOSE BLOOD 90336767432 No Longer Active Tu Landeros MD Active TRUETEST TEST STRP test blood sugar three times daily dx: 250.00 GLUCOSE BLOOD 30404635634 No Longer Active Suze Nicole RMA Active TRUERESULT BLOOD GLUCOSE W/DEVICE KIT use to test blood sugar tid dx: 250.00 BLOOD GLUCOSE MONITORING SUPPL 67445504259 No Longer Active Suze Nicole RMA Active ALIGN 4 MG CAPS 1 tid PROBIOTIC PRODUCT 86443284957 No Longer Active Shaun Sy MD Active CIPRO 500 MG TABS 1 bid x 14 days start 09-28-13 CIPROFLOXACIN HCL 42208806029 No Longer Active Shaun Sy MD Active TRAMADOL HCL 50 MG TABS 1-2 tablets every 6 hours as needed for pain TRAMADOL HCL 27841240121 Active Kofillina Valdez PATEL Active HYDROCODONE-ACETAMINOPHEN 5-325 MG TABS 1 tab by mouth every 6 hours as needed for pain HYDROCODONE-ACETAMINOPHEN 37459999585 No Longer Active Tu Landeros MD Active OMEPRAZOLE 20 MG CPDR 1 po q a.m. OMEPRAZOLE 52815049552 Active Lesli Kellogg APRN Active GABAPENTIN 100 MG CAPS 1 po bid GABAPENTIN 73164526296 No Longer Active Tu Landeros MD Active B-12 100 MCG TABS Take one by mouth daily CYANOCOBALAMIN 60994991728 No Longer Active Tu Landeros MD Active BACTRIM DS 800-160 MG TABS 1 bid x 14 day start 09-28-13 SULFAMETHOXAZOLE-TRIMETHOPRIM 92256360510 No Longer Active Tu Landeros MD Active CARVEDILOL 12.5 MG TABS 1 po BID CARVEDILOL 26968642338 Active Lesli Kellogg APRN Active TRILIPIX 135 MG CPDR 1 q hs CHOLINE FENOFIBRATE 09882536188 Active Tu Landeros MD Active FENOFIBRATE 145 MG TABS 1 po qd FENOFIBRATE 83349124282 No Longer Active JASPREET Perez Active OMEPRAZOLE 20 MG TBEC 1 PO 30 MIN BEFORE 1ST MEAL OMEPRAZOLE 38628488767 No Longer Active JASPREET Perez Active SIMVASTATIN 40 MG TABS Take one by mouth daily SIMVASTATIN 59277426642 No Longer Active Gustavo JASPREET Green Active VENLAFAXINE HCL 75 MG TABS 1 po BID VENLAFAXINE HCL 20074735493 No Longer Active JASPREET Perez Active CIPRO 500 MG TAB 1 tablet by mouth twice daily CIPROFLOXACIN HCL 22855586926 No Longer Active Tu Landeros MD Active VENLAFAXINE HCL 37.5 MG TABS 1 po BID VENLAFAXINE HCL 94836752074 No Longer Active Suzebianca Nicole [facility] Active LAMISIL 250 MG TAB 1 po qd TERBINAFINE HCL 33212059656 No Longer Active Tu Landeros MD Active LORTAB 5 5-500 MG TABS 1/2 to 1 tablet by mouth every 4 hours as needed for pain HYDROCODONE-ACETAMINOPHEN 29247863874 No Longer Active Tu Landeros MD Active HYDROCODONE-ACETAMINOPHEN 5-500 MG TABS take one po Q 4-6 hours prn HYDROCODONE-ACETAMINOPHEN 48763081380 No Longer Active Tu Landeros MD Active BACTRIM DS 800-160 MG TABS 1 po BID x 7 days SULFAMETHOXAZOLE-TRIMETHOPRIM 22706369536 No Longer Active Tu Landeros MD Active VENLAFAXINE HCL 75 MG TABS 1 po BID VENLAFAXINE HCL 06371068278 No Longer Active Elvira Cervantes MD PhD Active TRAMADOL HCL 50 MG TABS 1 tablets every 6 hours as needed for pain TRAMADOL HCL 13483379320 No Longer Active Tu Landeros MD Active ACCU-CHEK FASTCLIX LANCETS MISC Use to check bloodsugar three times daily as needed LANCETS 62336365263 No Longer Active Tu Landeros MD Active ACCU-CHEK KEYONA PLUS STRP Use for testing bloodsugars three times daily as needed GLUCOSE BLOOD 28972149491 No Longer Active Tu Landeros MD Active ACCU-CHEK KEYONA PLUS W/DEVICE KIT Use for testing bloodsugars three times daily as needed BLOOD GLUCOSE MONITORING SUPPL 40679917017 No Longer Active Tu Landeros MD Active SPIRONOLACTONE 25 MG TAB 0.5 tablet by mouth daily SPIRONOLACTONE 51069118707 No Longer Active Tu Landeros MD Active ALPRAZOLAM 0.5 MG TABS 1 tab every 6hrs as needed ALPRAZOLAM 56177183106 No Longer Active Tu Landeros MD Active AUGMENTIN 875-125 MG TAB 1 tab by mouth twice daily with food AMOXICILLIN-POT CLAVULANATE 40977053420 No Longer Active Tu Landeros MD Active PREDNISONE 20 MG TAB 2 tabs daily for 3 days, 1 tab daily for 3 days, 1/2 tab daily for 2 days PREDNISONE 14540245775 No Longer Active Tu Landeros MD Active XANAX 0.5 MG TABS 1 tablet every 6 hrs prn ALPRAZOLAM 77745725930 No Longer Active Tu Landeros MD Active PREDNISONE 20 MG TAB 2 tabs daily for 3 days, 1 tab daily for 3 days, 1/2 tab daily for 2 days PREDNISONE 67499821632 No Longer Active Tu Landeros MD Active TRIAMCINOLONE ACETONIDE 0.1 % OINT Apply to affected areas TID for up to 2 weeks TRIAMCINOLONE ACETONIDE 59503145455 No Longer Active Tu Landeros MD Active LORTAB 5 5-500 MG TABS 1/2 to 1 tablet by mouth every 4 hours as needed for pain HYDROCODONE-ACETAMINOPHEN 58345004146 No Longer Active Tu Landeros MD Active MULTIVITAMINS TABS Take one by mouth daily MULTIPLE VITAMIN 35955043228 No Longer Active Tu Landeros MD Active MELATONIN 5 MG TABS Take one by mouth daily MELATONIN 26225324949 No Longer Active Tu Landeros MD Active SOMA 350 MG TAB 1 po q 6 hours prn spasm CARISOPRODOL 86841675192 No Longer Active Tu Landeros MD Active MECLIZINE HCL 25 MG CHEW TAB 1 four times a day as needed for dizziness 08/05 MECLIZINE HCL 36282682805 No Longer Active Fab Morales DO Active ANGEL BREEZE 2 TEST DISK test tid prn GLUCOSE BLOOD 21692127149 No Longer Active Negra Scott RN Active REGLAN 10 MG TAB 1 po TID PRN [place]ausea METOCLOPRAMIDE HCL 41879244632 No Longer Active Tu Landeros MD Active METFORMIN HCL 500 MG TABS 1 PO BID METFORMIN HCL 50641290973 No Longer Active Tu Landeros MD Active AMBIEN 10 MG TAB 1 tab by mouth at bedtime as needed for sleep ZOLPIDEM TARTRATE 67379696571 No Longer Active Tu Landeros MD Active FLUOXETINE HCL 40 MG CAPS 1 po q day FLUOXETINE HCL 34465989824 No Longer Active Mayra Ravia Active TRILIPIX 135 MG CPDR 1 po qd CHOLINE FENOFIBRATE 48143493141 No Longer Active Tu Landeros MD Active AMBIEN 10 MG TAB 1 tab by mouth at bedtime as needed for sleep AMBIEN 10 MG TAB 225127 ZOLPIDEM TARTRATE Inactive METFORMIN HCL 500 MG TABS 1 PO BID METFORMIN HCL 500 MG TABS 050208 METFORMIN HCL Inactive REGLAN 10 MG TAB 1 po TID PRN Nausea REGLAN 10 MG TAB 883445 METOCLOPRAMIDE HCL Inactive MECLIZINE HCL 25 MG CHEW TAB 1 four times a day as needed for dizziness 08/05 MECLIZINE HCL 25 MG CHEW TAB 131785 MECLIZINE HCL Inactive SOMA 350 MG TAB 1 po q 6 hours prn spasm SOMA 350 MG TAB 736321 CARISOPRODOL Inactive MELATONIN 5 MG TABS Take one by mouth daily MELATONIN 5 MG TABS 486900 MELATONIN Inactive MULTIVITAMINS TABS Take one by mouth daily MULTIVITAMINS TABS MULTIPLE VITAMIN Inactive LORTAB 5 5-500 MG TABS 1/2 to 1 tablet by mouth every 4 hours as needed for pain LORTAB 5 5-500 MG TABS HYDROCODONE- ACETAMINOPHEN Inactive XANAX 0.5 MG TABS 1 tablet every 6 hrs prn XANAX 0.5 MG TABS 934440 ALPRAZOLAM Inactive AUGMENTIN 875-125 MG TAB 1 tab by mouth twice daily with food AUGMENTIN 875-125 MG TAB 192237 AMOXICILLIN-POT CLAVULANATE Inactive ALPRAZOLAM 0.5 MG TABS 1 tab every 6hrs as needed ALPRAZOLAM 0.5 MG TABS 374922 ALPRAZOLAM Inactive SPIRONOLACTONE 25 MG TAB 0.5 tablet by mouth daily SPIRONOLACTONE 25 MG TAB 102296 SPIRONOLACTONE Inactive ACCU-CHEK KEYONA PLUS W/DEVICE KIT Use for testing bloodsugars three times daily as needed ACCU-CHEK KEYONA PLUS W/DEVICE KIT BLOOD GLUCOSE MONITORING SUPPL Inactive ACCU-CHEK KEYONA PLUS STRP Use for testing bloodsugars three times daily as needed ACCU-CHEK KEYONA PLUS STRP GLUCOSE BLOOD Inactive ACCU-CHEK FASTCLIX LANCETS MISC Use to check bloodsugar three times daily as needed ACCU-CHEK FASTCLIX LANCETS [facility] 18402383583 LANCETS Inactive TRAMADOL HCL 50 MG TABS 1 tablets every 6 hours as needed for pain TRAMADOL HCL 50 MG TABS 845497 TRAMADOL HCL Inactive VENLAFAXINE HCL 75 MG TABS 1 po BID VENLAFAXINE HCL 75 MG TABS 856058 VENLAFAXINE HCL Inactive HYDROCODONE-ACETAMINOPHEN 5-500 MG TABS take one po Q 4-6 hours prn HYDROCODONE-ACETAMINOPHEN 5-500 MG TABS HYDROCODONE- ACETAMINOPHEN Inactive LORTAB 5 5-500 MG TABS 1/2 to 1 tablet by mouth every 4 hours as needed for pain LORTAB 5 5-500 MG TABS HYDROCODONE- ACETAMINOPHEN Inactive LAMISIL 250 MG TAB 1 po qd LAMISIL 250 MG TAB 125168 TERBINAFINE HCL Inactive VENLAFAXINE HCL 37.5 MG TABS 1 po BID VENLAFAXINE HCL 37.5 MG TABS 352311 VENLAFAXINE HCL Inactive CIPRO 500 MG TAB 1 tablet by mouth twice daily CIPRO 500 MG TAB 228966 CIPROFLOXACIN HCL Inactive VENLAFAXINE HCL 75 MG TABS 1 po BID VENLAFAXINE HCL 75 MG TABS 344633 VENLAFAXINE HCL Inactive SIMVASTATIN 40 MG TABS Take one by mouth daily SIMVASTATIN 40 MG TABS 885589 SIMVASTATIN Inactive OMEPRAZOLE 20 MG TBEC 1 PO 30 MIN BEFORE 1ST MEAL OMEPRAZOLE 20 MG TBEC 033397 OMEPRAZOLE Inactive FENOFIBRATE 145 MG TABS 1 po qd FENOFIBRATE 145 MG TABS 467728 FENOFIBRATE Inactive BACTRIM DS 800-160 MG TABS 1 bid x 14 day start 09-28-13 BACTRIM DS 800-160 MG TABS 557642 SULFAMETHOXAZOLE-TRIMETHOPRIM Inactive B-12 100 MCG TABS Take one by mouth daily B-12 100 MCG TABS CYANOCOBALAMIN Inactive GABAPENTIN 100 MG CAPS 1 po bid GABAPENTIN 100 MG CAPS 014056 GABAPENTIN Inactive HYDROCODONE-ACETAMINOPHEN 5-325 MG TABS 1 tab by mouth every 6 hours as needed for pain HYDROCODONE-ACETAMINOPHEN 5-325 MG TABS 933036 HYDROCODONE-ACETAMINOPHEN Inactive CIPRO 500 MG TABS 1 bid x 14 days start 09-28-13 CIPRO 500 MG TABS 025834 CIPROFLOXACIN HCL Inactive ALIGN 4 MG CAPS [...] as needed DICLOFENAC SODIUM 50 MG TBEC 525515 DICLOFENAC SODIUM Inactive PREDNISONE 20 MG TAB 2 tablets once daily for 2 days, then 1 tablet once daily for 2 days PREDNISONE 20 MG TAB 282872 PREDNISONE Inactive TRUEDRAW LANCING DEVICE MISC Test twice a day dx 250.0 TRUEDRAW LANCING DEVICE MISC LANCET DEVICES Inactive TRUERESULT BLOOD GLUCOSE W/DEVICE KIT test blood sugar twice daily dx 250.00 TRUERESULT BLOOD GLUCOSE W/DEVICE KIT BLOOD GLUCOSE MONITORING SUPPL Inactive FLONASE 50 MCG/ACT SUSP 1 spray each nostril twice daily until bottle empty FLONASE 50 MCG/ACT SUSP 4699120 FLUTICASONE PROPIONATE Inactive VENTOLIN HFA 108 (90 BASE) MCG/ACT AERS 1-2 puffs every 4 hours if needed for cough/congestion VENTOLIN HFA 108 (90 BASE) MCG/ACT AERS ALBUTEROL SULFATE Inactive REQUIP 2 MG TABS Take one tablet at bedtime prn REQUIP 2 MG TABS 591773 ROPINIROLE HCL Inactive SUPER B COMPLEX/VITAMIN C TABS 1 qd SUPER B COMPLEX/ VITAMIN C TABS 65381082065 B COMPLEX-C Inactive TRUEDRAW LANCING DEVICE MISC test blood sugar twice daily dx: 250.00 TRUEDRAW LANCING DEVICE MISC LANCET DEVICES Inactive TRUETEST TEST INVITR STRP test blood sugar twice daily. DX 250.0 TRUETEST TEST INVITR STRP GLUCOSE BLOOD Inactive TRIAMCINOLONE ACETONIDE 0.1 % OINT Apply to affected areas TID for up to 2 weeks TRIAMCINOLONE ACETONIDE 0.1 % OINT 8509690 TRIAMCINOLONE ACETONIDE Inactive PREDNISONE 20 MG TAB 2 tabs daily for 3 days, 1 tab daily for 3 days, 1/2 tab daily for 2 days PREDNISONE 20 MG TAB 533331 PREDNISONE Inactive PREDNISONE 20 MG TAB 2 tabs daily for 3 days, 1 tab daily for 3 days, 1/2 tab daily for 2 days PREDNISONE 20 MG TAB 043547 PREDNISONE Inactive BACTRIM DS 800-160 MG TABS 1 po BID x 7 days BACTRIM DS 800-160 MG TABS 192629 SULFAMETHOXAZOLE-TRIMETHOPRIM Inactive ZITHROMAX 250 MG TAB 2 po today, then 1 po q days 2-5 ZITHROMAX 250 MG TAB 4925384 AZITHROMYCIN Inactive Advance Directives Directive Description Start Date DISCUSSED WITH PATIENT -- NO DECISION MADE Immunizations Vaccine Administration Date Value Standard Description Seasonal influenza vaccine, injectable, containing preservative, for > 3 years old (Afluria, FluLaval, Fluzone, Fluvirin, Fluarix, Agriflu(>=18 yo)) Fluzone (>3 yrs.) [[id number]] Influenza, seasonal, injectable influenza immunization (Flu Vax) has been administered 02/22/2012 influenza virus vaccine, unspecified formulation Seasonal influenza vaccine, injectable, containing preservative, for > 3 years old (Afluria, FluLaval, Fluzone, Fluvirin, Fluarix, Agriflu(>=18 yo)) Fluzone (>3 yrs.) [[id number]] Influenza, seasonal, injectable Vital Signs Date Name [...] Magnesium - Chemistry sodium, serum 143 mmol/L 207-831 1683/01/10 carbon dioxide, venous blood 28.0 mmol/L 21.0-32.0 potassium, serum 4.5 mmol/L 3.5-5.2 chloride, serum 104 mmol/L 98-107 blood glucose 158 mg/dL 65-110 urea nitrogen, blood 23 mg/dL 7-18 creatinine, serum 1.06 mg/dL 0.55-1.30 alanine aminotransferase (SGPT), serum 42 U/L 12-78 aspartate aminotransferase (SGOT), serum 32 U/L 15-37 calcium, serum 9.3 mg/dL 8.5-10.1 bilirubin, serum, total 0.20 mg/dL 0.00-1.00 cholesterol, serum 177 mg/dL 829-590 3159/01/10 triglyceride, serum, fasting 320 mg/dL 30-200 HDL cholesterol, serum 46 mg/dL 32-96 LDL cholesterol, serum 67 mg/dL 0-130 Lab Report: COMPREHENSIVE METABOLIC PANEL, LIPID PANEL, HEMOGLOBIN A1c - Chemistry cholesterol, serum 135 mg/dL 225-997 5638/05/17 HDL cholesterol, serum 41 mg/dL > OR=46 triglyceride, serum, fasting 206 mg/dL <150 LDL cholesterol, serum 53 MG/DL (CALC) mg/dL <130 cholesterol/HDL ratio, serum 3.3 (calc) < OR=5.0 Lab Report: HGBA1C - Chemistry hemoglobin A1C, blood, as % of total hemoglobin 7.4 % 4.3-6.0 sodium, serum 140 mmol/L 729-401 4005/09/07 potassium, serum 4.3 mmol/L 3.5-5.2 chloride, serum [...] <30 Encounters Code Encounter Date Provider Facility CPT-69211 Level 3 Est. Patient 13:33:09 CDT Tu Landeros MD [facility] CPT-28545 Level 4 Est. Patient 14:29:21 CDT Tu Landeros MD [facility] CPT-31369 Level 4 Est. Patient 09:08:17 BLOOD BANK COORDINATOR Tu Landeros MD [facility] CPT-97370 Level 4 Est. Patient 14:40:19 CDT Tu Landeros MD [facility] CPT-06599 Level 4 Est. Patient 14:06:04 BLOOD BANK COORDINATOR Tu Landeros MD [facility] CPT-42193 Level 3 Est. Patient 14:05:18 BLOOD BANK COORDINATOR Tu Landeros MD [facility] CPT-22954 Level 3 Est. Patient 10:06:54 BLOOD BANK COORDINATOR Miranda Suresh APRN [facility] CPT-81943 Level 4 Est. Patient 13:50:18 BLOOD BANK COORDINATOR Tu Landeros MD [facility] CPT-43505 Level 3 Est. Patient 10:30:04 CDT Tu Landeros MD [facility] CPT-95365 Level 4 Est. Patient 11:03:38 CDT Tu Landeros MD [facility] CPT-03008 Level 3 Est. Patient 10:20:44 CDT Fab Morales DO [facility] CPT-82765 Level 4 Est. Patient 14:38:57 CDT Tu Landeros MD [facility] CPT-02472 Level 4 Est. Patient 14:27:39 BLOOD BANK COORDINATOR Tu Landeros MD [facility] CPT-08758 Level 4 Est. Patient 09:45:25 CDT Tu Landeros MD [facility] CPT-56044 Level 4 Est. Patient 09:05:20 BLOOD BANK COORDINATOR Tu Landeros MD [facility] CPT-18190 Level 4 Est. Patient 14:09:06 CDT Tu Landeros MD [facility] CPT-35924 Level 3 Est. Patient 13:36:54 CDT Tu Landeros MD [facility] CPT-18786 Level 3 Est. Patient 08:59:14 CDT Tu Landeros MD [facility] CPT-20070 Level 3 Est. Patient 13:48:35 CDT Fab Morales DO [facility] CPT-15319 Level 4 Est. Patient 10:05:48 CDT Tu Landeros MD [facility] CPT-15251 Level 3 Est. Patient 13:38:42 CDT Marek BANKS [facility] CPT-63283 Level 5 Est. Patient 08:08:39 CDT Jerrica FRANCIS [facility] CPT-86364 Level 4 Est. Patient 14:23:38 CDT Tu Landeros MD [facility] CPT-54025 Level 3 Est. Patient 11:44:04 CDT Tu Landeros MD [facility] CPT-82505 Level 3 Est. Patient 11:03:20 BLOOD BANK COORDINATOR Tu Landeros MD [facility] CPT-04179 Level 3 Est. Patient 11:03:14 BLOOD BANK COORDINATOR Tu Landeros MD [facility] CPT-78080 Level 3 Est. Patient 12:42:49 CDT Tu Landeros MD [facility] CPT-03251 Level 3 Est. Patient 11:52:06 CDT Tu Landeros MD [facility] CPT-91077 Level 3 Est. Patient 13:58:11 CDT Tu Landeros MD [facility] CPT-17098 Level 3 Est. Patient 17:50:07 CDT Fab Morales DO [facility] CPT-92965 Level 3 Est. Patient 12:06:29 CDT Elvira Cervantes MD [facility] CPT-20701 Level 3 Est. Patient 15:50:32 CDT Tu Landeros MD [facility] CPT-24501 Level 4 Est. Patient 16:08:29 CDT Tu Landeros MD [facility] CPT-16395 Level 3 Est. Patient 16:04:19 CDT Tu Landeros MD [facility] CPT-60425 Level 3 Est. Patient 11:22:30 BLOOD BANK COORDINATOR Tu Landeros MD [facility] CPT-03997 Level 4 Est. Patient 16:24:02 BLOOD BANK COORDINATOR Tu Landeros MD [facility] CPT-40737 Level 3 Est. Patient 17:21:23 BLOOD BANK COORDINATOR Tu Landeros MD [facility] Procedures Code Procedure Name Date Entry Date Standard Description CPT-77304 Shoulder, right, comp min 2V - XRAY USE ONLY 13:50:22 CDT CPT-G0009 Administration of Pneumococcal Vaccine 15:08:26 CDT CPT-77475 Prevnar 13 Intramuscular Suspension 15:08:26 CDT 10/08 CPT-G0439 [facility] Annual Wellness Exam 14:29:22 CDT CPT-08504 Venipuncture Draw Fee 13:15:35 CDT CPT-50310 Magnesium - LAB USE ONLY 11:14:20 BLOOD BANK COORDINATOR CPT-03547 Lipid - LAB USE ONLY 11:14:20 BLOOD BANK COORDINATOR CPT-39323 HGBA1C - LAB USE ONLY 11:14:20 BLOOD BANK COORDINATOR CPT-30415 CMP - LAB USE ONLY 11:14:19 BLOOD BANK COORDINATOR CPT-66983 CBC - LAB USE ONLY 11:14:19 BLOOD BANK COORDINATOR CPT-25285 Venipuncture Draw Fee 11:14:18 BLOOD BANK COORDINATOR CPT-28334 First Vx - Ix admin for Medicare patients 16:46:52 CDT CPT-92181 Fluzone Preservative Free Intramuscular Suspension 16:46 :51 CDT CPT-03183 CBC - LAB USE ONLY 17:14:46 CDT CPT-87966 HGBA1C - LAB USE ONLY 17:14:46 CDT CPT-81616 Venipuncture Draw Fee 17:14:46 CDT CPT-G0438 Initial Annual Wellness Exam 14:13:04 CDT CPT-23719 Breathing Tx 10:06:54 BLOOD BANK COORDINATOR CPT-27151 Postop F/U Visit 10:02:45 CDT CPT-LR Lesion Removal 09:02:56 CDT CPT-JTINJ Asp/Joint Injection 15:51:27 BLOOD BANK COORDINATOR CPT-OV Office Visit 15:52:02 BLOOD BANK COORDINATOR CPT-OV Office Visit 15:45:11 CDT CPT-000 Give Zostavax 14:09:06 CDT CPT-55662 Administration single or combination vaccine inc oral 15 :19:04 CDT CPT-27963 Zoster Vaccine (Zostavax) 15:19:04 CDT CPT-81643 Administration single or combination vaccine inc oral 20 :51:03 CDT CPT-65053 Influenza split virus > age 3 20:51:03 CDT CPT-40421 No Charge Offi Visit 14:52:03 CDT CPT-OV Office Visit 14:57:43 CDT CPT-OV Office Visit 15:22:32 CDT CPT-19991 Administration single or combination vaccine inc oral 11 :33:15 CDT CPT-55494 Influenza split virus > age 3 11:33:15 CDT
--- OUTSIDE RECORDS SUMMARY | 2018-04-25 19:05 | XMS REPORT | Clinical Summary ---
Author Author Admin, SACHI Clemons [facility] Address Unknown Phone Unavailable Allergies, Adverse [...] KNEE PAIN ICD-719.46 Inactive Tu Landeros MD LOCALIZED SUPERFICIAL SWELLING [...] pain, bilateral ICD-388.70 Inactive Tu Landeros MD ONYCHOMYCOSIS ICD-110.1 Inactive Tu Landeros MD Medication List Medication Instructions Start Date Stop Date Generic Name NDC Status Provider Patient Instruction SIMVASTATIN 40 MG TABS 0.5 tab daily at bedtime SIMVASTATIN 92641528092 Active Tu Landeros MD Active TRUERESULT BLOOD GLUCOSE W/DEVICE KIT test blood sugar twice daily dx 250.00 BLOOD GLUCOSE MONITORING SUPPL 86962704760 No Longer Active Tu Landeros MD Active TRUEDRAW LANCING DEVICE MISC Test twice a day dx 250.0 LANCET DEVICES 83505855346 No Longer Active Tu Landeros MD Active PREDNISONE 20 MG TAB 2 tablets once daily for 2 days, then 1 tablet once daily for 2 days PREDNISONE 90805222390 No Longer Active Tu Landeros MD Active FLONASE 50 MCG/ACT SUSP 1 spray each nostril twice daily until bottle empty FLUTICASONE PROPIONATE 25495452384 Active Fab Morales DO Active DICLOFENAC SODIUM 50 MG TBEC 1 tablet by mouth three times a day as needed DICLOFENAC SODIUM 26711033365 No Longer Active Fab Morales DO Active METFORMIN HCL 850 MG TABS 1 tablet by mouth twice daily METFORMIN HCL 10086248226 Active Tu Landeros MD Active TRUEDRAW LANCING DEVICE MISC test blood sugar twice daily dx: 250.00 LANCET DEVICES 68483618469 Active Tu Landeros MD Active TRUETEST TEST INVITR STRP test blood sugar twice daily. DX 250.0 GLUCOSE BLOOD 71075868421 Active Tu Landeros MD Active EMBRACE BLOOD GLUCOSE TEST STRP test blood sugar twice daily DX 250.0 2014 GLUCOSE BLOOD 90708327618 No Longer Active Tu Landeros MD Active TRUETEST TEST STRP test blood sugar three times daily dx: 250.00 GLUCOSE BLOOD 98499832866 No Longer Active Suzebianca Nicole RMA Active TRUERESULT BLOOD GLUCOSE W/DEVICE KIT use to test blood sugar tid dx: 250.00 BLOOD GLUCOSE MONITORING SUPPL 42459523230 No Longer Active Suze Corey RMA Active ALIGN 4 MG CAPS 1 tid PROBIOTIC PRODUCT 07694083117 No Longer Active Shaun Sy MD Active CIPRO 500 MG TABS 1 bid x 14 days start 09-28-13 CIPROFLOXACIN HCL 97063568681 No Longer Active Shaun Sy MD Active TRAMADOL HCL 50 MG TABS 1-2 tablets every 6 hours as needed for pain TRAMADOL HCL 93285335889 Active Tu Landeros MD Active HYDROCODONE-ACETAMINOPHEN 5-325 MG TABS 1 tab by mouth every 6 hours as needed for pain HYDROCODONE-ACETAMINOPHEN 31011510295 No Longer Active Tu Landeros MD Active OMEPRAZOLE 20 MG CPDR 1 po q a.m. OMEPRAZOLE 05775988223 Active Elvira Cervantes MD PhD Active GABAPENTIN 100 MG CAPS 1 po bid GABAPENTIN 40117638131 No Longer Active Tu Landeros MD Active B-12 100 MCG TABS Take one by mouth daily CYANOCOBALAMIN 87221830243 No Longer Active Tu Landeros MD Active GABAPENTIN 100 MG CAPS by mouth twice a day GABAPENTIN 29295413422 Active Tu Landeros MD Active BACTRIM DS 800-160 MG TABS 1 bid x 14 day start 09-28-13 SULFAMETHOXAZOLE-TRIMETHOPRIM 58841459758 No Longer Active Tu Landeros MD Active CARVEDILOL 12.5 MG TABS 1 po BID CARVEDILOL 91714757691 Active Tu Landeros MD Active SUPER B COMPLEX/VITAMIN C TABS 1 qd B COMPLEX-C 74285110411 Active JASPREET Perez Active TRILIPIX 135 MG CPDR 1 q hs CHOLINE FENOFIBRATE 54377125631 Active Tu Landeros MD Active FENOFIBRATE 145 MG TABS 1 po qd FENOFIBRATE 81312840509 No Longer Active JASPREET Perez Active OMEPRAZOLE 20 MG TBEC 1 PO 30 MIN BEFORE 1ST MEAL OMEPRAZOLE 55494760589 No Longer Active JASPREET Perez Active SIMVASTATIN 40 MG TABS Take one by mouth daily SIMVASTATIN 39441422394 No Longer Active JASPREET Perez Active VENLAFAXINE HCL 37.5 MG TABS 1 bid VENLAFAXINE HCL 62247655266 Active Tu Landeros MD Active VENLAFAXINE HCL 75 MG TABS 1 po BID VENLAFAXINE HCL 72080751083 No Longer Active JASPREET Perez Active CIPRO 500 MG TAB 1 tablet by mouth twice daily CIPROFLOXACIN HCL 62362021850 No Longer Active Tu Landeros MD Active VENLAFAXINE HCL 37.5 MG TABS 1 po BID VENLAFAXINE HCL 38910008921 No Longer Active Suze Corey RMA Active CVS STOOL SOFTENER 100 MG CAPS 1 tab daily DOCUSATE SODIUM 81779996386 Active Tu Landeros MD Active LAMISIL 250 MG TAB 1 po qd TERBINAFINE HCL 92374836439 No Longer Active Tu Landeros MD Active LORTAB 5 5-500 MG TABS 1/2 to 1 tablet by mouth every 4 hours as needed for pain HYDROCODONE-ACETAMINOPHEN 84362514885 No Longer Active Tu Landeros MD Active ENALAPRIL MALEATE 20 MG TABS 1.5 po qd ENALAPRIL MALEATE 19223373174 Active Tu Landeros MD Active HYDROCODONE-ACETAMINOPHEN 5-500 MG TABS take one po Q 4-6 hours prn HYDROCODONE-ACETAMINOPHEN 69699787728 No Longer Active Tu Landeros MD Active BACTRIM DS 800-160 MG TABS 1 po BID x 7 days SULFAMETHOXAZOLE-TRIMETHOPRIM 38563793842 No Longer Active Tu Landeros MD Active VENLAFAXINE HCL 75 MG TABS 1 po BID VENLAFAXINE HCL 17667672355 No Longer Active Elvira Cervantes MD PhD Active TRAMADOL HCL 50 MG TABS 1 tablets every 6 hours as needed for pain TRAMADOL HCL 10106009194 No Longer Active Tu Landeros MD Active ACCU-CHEK FASTCLIX LANCETS MISC Use to check bloodsugar three times daily as needed LANCETS 74215462437 No Longer Active Tu Landeros MD Active ACCU-CHEK KEY[place] PLUS STRP Use for testing bloodsugars three times daily as needed GLUCOSE BLOOD 79889697672 No Longer Active Tu Landeros MD Active ACCU-CHEK KEYONA PLUS W/DEVICE KIT Use for testing bloodsugars three times daily as needed BLOOD GLUCOSE MONITORING SUPPL 62791803692 No Longer Active Tu Landeros MD Active SPIRONOLACTONE 25 MG TAB 0.5 tablet by mouth daily SPIRONOLACTONE 26955164785 No Longer Active Tu Landeros MD Active ALPRAZOLAM 0.5 MG TABS 1 tab every 6hrs as needed ALPRAZOLAM 77992202121 No Longer Active Tu Landeros MD Active AUGMENTIN 875-125 MG TAB 1 tab by mouth twice daily with food AMOXICILLIN-POT CLAVULANATE 84041444335 No Longer Active Tu Landeros MD Active PREDNISONE 20 MG TAB 2 tabs daily for 3 days, 1 tab daily for 3 days, 1/2 tab daily for 2 days PREDNISONE 95046540437 No Longer Active Tu Landeros MD Active XANAX 0.5 MG TABS 1 tablet every 6 hrs prn ALPRAZOLAM 00772664475 No Longer Active Tu Landeros MD Active PREDNISONE 20 MG TAB 2 tabs daily for 3 days, 1 tab daily for 3 days, 1/2 tab daily for 2 days PREDNISONE 42754826003 No Longer Active Tu Landeros MD Active TRIAMCINOLONE ACETONIDE 0.1 % OINT Apply to affected areas TID for up to 2 weeks TRIAMCINOLONE ACETONIDE 04605678270 No Longer Active Tu Landeros MD Active LORTAB 5 5-500 MG TABS 1/2 to 1 tablet by mouth every 4 hours as needed for pain HYDROCODONE-ACETAMINOPHEN 75569646375 No Longer Active Tu Landeros MD Active MULTIVITAMINS TABS Take one by mouth daily MULTIPLE VITAMIN 16701271182 No Longer Active uT Landeros MD Active MELATONIN 5 MG TABS Take one by mouth daily MELATONIN 84197162157 No Longer Active Tu Landeros MD Active SOMA 350 MG TAB 1 po q 6 hours prn spasm CARISOPRODOL 79399095492 No Longer Active Tu Landeros MD Active MECLIZINE HCL 25 MG CHEW TAB 1 four times a day as needed for dizziness 08/05 MECLIZINE HCL 50239325318 No Longer Active Fab Morales DO Active ANGEL NIKKOEZE 2 TEST DISK test tid prn GLUCOSE BLOOD 37326222195 No Longer Active Negra Scott RN Active REGLAN 10 MG TAB 1 po TID PRN [place] METOCLOPRAMIDE HCL 39623673176 No Longer Active Tu Landeros MD Active METFORMIN HCL 500 MG TABS 1 PO BID METFORMIN HCL 15989829187 No Longer Active Tu Landeros MD Active AMBIEN 10 MG TAB 1 tab by mouth at bedtime as needed for sleep ZOLPIDEM TARTRATE 50306852869 No Longer Active Tu Landeros MD Active FLUOXETINE HCL 40 MG CAPS 1 po q day FLUOXETINE HCL 98683382633 No Longer Active Mayra [place] Active FISH OIL 1000 MG CAPS Take one by mouth daily OMEGA-3 FATTY ACIDS 82400397561 Active Tu Landeros MD Active GLUCOSAMINE 500 MG TABS Take 2 tab po qd GLUCOSAMINE 37642593089 Active Tu Landeros MD Active TRILIPIX 135 MG CPDR 1 po qd CHOLINE FENOFIBRATE 81228783372 No Longer Active Tu Landeros MD Active ASPIRIN 81 MG CHEW TAB 1 tablet by mouth daily ASPIRIN 79575830465 Active Tu Landeros MD Active FUROSEMIDE 40 MG TAB 1 tablet by mouth daily FUROSEMIDE 93887245564 Active Tu Landeros MD Active REQUIP 2 MG TABS Take one tablet at bedtime prn ROPINIROLE HCL 00380820696 Active Tu Landeros MD Active KLOR-CON 10 10 MEQ CR-TABS TAKE 2 TABS DAILY POTASSIUM CHLORIDE 17574760238 Active Tu Landeros MD Active AMBIEN 10 MG TAB 1 tab by mouth at bedtime as needed for sleep AMBIEN 10 MG TAB 766763 ZOLPIDEM TARTRATE Inactive METFORMIN HCL 500 MG TABS 1 PO BID METFORMIN HCL 500 MG TABS 169961 METFORMIN HCL Inactive REGLAN 10 MG TAB 1 po TID PRN Nausea REGLAN 10 MG TAB 768280 METOCLOPRAMIDE HCL Inactive MECLIZINE HCL 25 MG CHEW TAB 1 four times a day as needed for dizziness 08/05 MECLIZINE HCL 25 MG CHEW TAB 419006 MECLIZINE HCL Inactive SOMA 350 MG TAB 1 po q 6 hours prn spasm SOMA 350 MG TAB 385021 CARISOPRODOL Inactive MELATONIN 5 MG TABS Take one by mouth daily MELATONIN 5 MG TABS 399944 MELATONIN Inactive MULTIVITAMINS TABS Take one by mouth daily MULTIVITAMINS TABS MULTIPLE VITAMIN Inactive LORTAB 5 5-500 MG TABS 1/2 to 1 tablet by mouth every 4 hours as needed for pain LORTAB 5 5-500 MG TABS HYDROCODONE- ACETAMINOPHEN Inactive XANAX 0.5 MG TABS 1 tablet every 6 hrs prn XANAX 0.5 MG TABS 104229 ALPRAZOLAM Inactive AUGMENTIN 875-125 MG TAB 1 tab by mouth twice daily with food AUGMENTIN 875-125 MG TAB 307997 AMOXICILLIN-POT CLAVULANATE Inactive ALPRAZOLAM 0.5 MG TABS 1 tab every 6hrs as needed ALPRAZOLAM 0.5 MG TABS 647708 ALPRAZOLAM Inactive SPIRONOLACTONE 25 MG TAB 0.5 tablet by mouth daily SPIRONOLACTONE 25 MG TAB 927874 SPIRONOLACTONE Inactive ACCU-CHEK KEYONA PLUS W/DEVICE KIT Use for testing bloodsugars three times daily as needed ACCU-CHEK KEYONA PLUS W/DEVICE KIT BLOOD GLUCOSE MONITORING SUPPL Inactive ACCU-CHEK KEYONA PLUS STRP Use for testing bloodsugars three times daily as needed ACCU-CHEK KEYONA PLUS STRP GLUCOSE BLOOD Inactive ACCU-CHEK FASTCLIX LANCETS MISC Use to check bloodsugar three times daily as needed ACCU-CHEK FASTCLIX LANCETS MISC 87095720561 LANCETS Inactive TRAMADOL HCL 50 MG TABS 1 tablets every 6 hours as needed for pain TRAMADOL HCL 50 MG TABS 627983 TRAMADOL HCL Inactive VENLAFAXINE HCL 75 MG TABS 1 po BID VENLAFAXINE HCL 75 MG TABS 456728 VENLAFAXINE HCL Inactive HYDROCODONE-ACETAMINOPHEN 5-500 MG TABS take one po Q 4-6 hours prn HYDROCODONE-ACETAMINOPHEN 5-500 MG TABS HYDROCODONE- ACETAMINOPHEN Inactive LORTAB 5 5-500 MG TABS 1/2 to 1 tablet by mouth every 4 hours as needed for pain LORTAB 5 5-500 MG TABS HYDROCODONE- ACETAMINOPHEN Inactive LAMISIL 250 MG TAB 1 po qd LAMISIL 250 MG TAB 990414 TERBINAFINE HCL Inactive VENLAFAXINE HCL 37.5 MG TABS 1 po BID VENLAFAXINE HCL 37.5 MG TABS 031409 VENLAFAXINE HCL Inactive CIPRO 500 MG TAB 1 tablet by mouth twice daily CIPRO 500 MG TAB 757471 CIPROFLOXACIN HCL Inactive VENLAFAXINE HCL 75 MG TABS 1 po BID VENLAFAXINE HCL 75 MG TABS 604316 VENLAFAXINE HCL Inactive SIMVASTATIN 40 MG TABS Take one by mouth daily SIMVASTATIN 40 MG TABS 809459 SIMVASTATIN Inactive OMEPRAZOLE 20 MG TBEC 1 PO 30 MIN BEFORE 1ST MEAL OMEPRAZOLE 20 MG TBEC 055393 OMEPRAZOLE Inactive FENOFIBRATE 145 MG TABS 1 po qd FENOFIBRATE 145 MG TABS 109227 FENOFIBRATE Inactive BACTRIM DS 800-160 MG TABS 1 bid x 14 day start 09-28-13 BACTRIM DS 800-160 MG TABS SULFAMETHOXAZOLE-TRIMETHOPRIM Inactive B-12 100 MCG TABS Take one by mouth daily B-12 100 MCG TABS CYANOCOBALAMIN Inactive GABAPENTIN 100 MG CAPS 1 po bid GABAPENTIN 100 MG CAPS 132258 GABAPENTIN Inactive HYDROCODONE-ACETAMINOPHEN 5-325 MG TABS 1 tab by mouth every 6 hours as needed for pain HYDROCODONE-ACETAMINOPHEN 5-325 MG TABS 075645 HYDROCODONE-ACETAMINOPHEN Inactive CIPRO 500 MG TABS 1 bid x 14 days start -814 CIPRO 500 MG TABS 727001 CIPROFLOXACIN HCL Inactive ALIGN 4 MG CAPS [...] as needed DICLOFENAC SODIUM 50 MG TBEC 444593 DICLOFENAC SODIUM Inactive PREDNISONE 20 MG TAB 2 tablets once daily for 2 days, then 1 tablet once daily for 2 days PREDNISONE 20 MG TAB 186813 PREDNISONE Inactive TRUEDRAW LANCING DEVICE MISC Test twice a day dx 250.0 TRUEDRAW LANCING DEVICE MISC LANCET DEVICES Inactive TRUERESULT BLOOD GLUCOSE W/DEVICE KIT test blood sugar twice daily dx 250.00 TRUERESULT BLOOD GLUCOSE W/DEVICE KIT BLOOD GLUCOSE MONITORING SUPPL Inactive TRIAMCINOLONE ACETONIDE 0.1 % OINT Apply to affected areas TID for up to 2 weeks TRIAMCINOLONE ACETONIDE 0.1 % OINT 3513829 TRIAMCINOLONE ACETONIDE Inactive PREDNISONE 20 MG TAB 2 tabs daily for 3 days, 1 tab daily for 3 days, 1/2 tab daily for 2 days PREDNISONE 20 MG TAB 190862 PREDNISONE Inactive PREDNISONE 20 MG TAB 2 tabs daily for 3 days, 1 tab daily for 3 days, 1/2 tab daily for 2 days PREDNISONE 20 MG TAB 434783 PREDNISONE Inactive BACTRIM DS 800-160 MG TABS 1 po BID x 7 days BACTRIM DS 800-160 MG TABS SULFAMETHOXAZOLE-TRIMETHOPRIM Inactive Immunizations Vaccine Administration Date Value Standard Description Seasonal influenza vaccine, injectable, containing preservative, for > 3 years old (Afluria, FluLaval, Fluzone, Fluvirin, Fluarix, Agriflu(>=18 yo)) Fluzone (>3 yrs.) [[id number]] Influenza, seasonal, injectable influenza immunization (Flu Vax) has been administered 02/22/2012 influenza virus vaccine, unspecified formulation Seasonal influenza vaccine, injectable, containing preservative, for > 3 years old (Afluria, FluLaval, Fluzone, Fluvirin, Fluarix, Agriflu(>=18 yo)) Fluzone (>3 yrs.) [[id number]] Influenza, seasonal, injectable Vital Signs Date Name [...] CBC - Chemistry sodium, serum 143 mmol/L 430-376 2519/03/10 potassium, serum 4.9 mmol/L 3.5-5.2 chloride, serum [...] Report: HEPATIC PANEL, Lipid Panel - Chemistry cholesterol, serum 111 mg/dL 629-334 3975/07/28 triglyceride, serum, fasting 177 mg/dL 30-200 HDL cholesterol, serum 32 mg/dL 32-96 LDL cholesterol, serum 44 mg/dL 0-130 bilirubin, serum, total 0.30 mg/dL 0.00-1.00 alanine aminotransferase (SGPT), serum 32 U/L 12-78 aspartate aminotransferase (SGOT), serum 18 U/L 15-37 Lab Report: HGBA1C - Chemistry hemoglobin A1C, blood, as % of total hemoglobin 6.6 % 4.3-6.0 hemoglobin A1C, blood, as % of total hemoglobin 6.8 % 4.3-6.0 Lab Report: LH/Adult/615, FSH/Adult/470 - Chemistry follicle stimulating hormone, serum 5.5 m[iU]/mL luteinizing hormone, serum 1.3 m[iU]/mL Lab Report: MICROALBUMIN - Chemistry albumin/creatinine ratio, urine < 30 mg/g mg/g{creat} 0-29 Lab Report: MICROALBUMIN - Lab microalbumin, urine 10 0-19 Office Visit: Abdominal Wound - Chemistry cholesterol, target level 200 mg/dL triglyceride, target level 200 mg/dL HDL cholesterol, serum, target level 35 mg/dL LDL target level 100 mg/dL Encounters Code Encounter Date Provider Facility CPT-69440 Level 4 Est. Patient 11:03:38 CDT Tu Landeros MD [facility] CPT-82541 Level 3 Est. Patient 10:20:44 CDT Fab Morales DO [facility] CPT-56322 Level 4 Est. Patient 14:38:57 CDT Tu Landeros MD [facility] CPT-17574 Level 4 Est. Patient 14:27:39 SHANKER OUT Tu Landeros MD [facility] CPT-87549 Level 4 Est. Patient 09:45:25 CDT Tu Landeros MD [facility] CPT-42122 Level 4 Est. Patient 09:05:20 SHANKER OUT Tu Landeros MD [facility] CPT-23741 Level 4 Est. Patient 14:09:06 CDT Tu Landeros MD [facility] CPT-40661 Level 3 Est. Patient 13:36:54 CDT Tu Landeros MD [facility] CPT-62990 Level 3 Est. Patient 08:59:14 CDT Tu Landeros MD [facility] CPT-47248 Level 3 Est. Patient 13:48:35 CDT Fab Morales DO [facility] CPT-70371 Level 4 Est. Patient 10:05:48 CDT Tu Landeros MD [facility] CPT-65606 Level 3 Est. Patient 13:38:42 CDT Marek BANKS [facility] CPT-36672 Level 5 Est. Patient 08:08:39 CDT Jerrica FRANCIS [facility] CPT-13415 Level 4 Est. Patient 14:23:38 CDT Tu Landeros MD [facility] CPT-77500 Level 3 Est. Patient 11:44:04 CDT Tu Landeros MD [facility] CPT-06290 Level 3 Est. Patient 11:03:20 SHANKER OUT Tu Landeros MD [facility] CPT-53388 Level 3 Est. Patient 11:03:14 SHANKER OUT Tu Landeros MD [facility] CPT-75076 Level 3 Est. Patient 12:42:49 CDT Tu Landeros MD [facility] CPT-01439 Level 3 Est. Patient 11:52:06 CDT Tu Landeros MD [facility] CPT-21636 Level 3 Est. Patient 13:58:11 CDT Tu Landeros MD [facility] CPT-11625 Level 3 Est. Patient 17:50:07 CDT Fab Morales DO [facility] CPT-58739 Level 3 Est. Patient 12:06:29 CDT Elvira Cervantes MD PhD [facility] CPT-64915 Level 3 Est. Patient 15:50:32 CDT Tu Landeros MD [facility] CPT-68840 Level 4 Est. Patient 16:08:29 CDT Tu Landeros MD [facility] CPT-76553 Level 3 Est. Patient 16:04:19 CDT Tu Landeros MD [facility] CPT-38241 Level 3 Est. Patient 11:22:30 SHANKER OUT Tu Landeros MD [facility] CPT-95672 Level 4 Est. Patient 16:24:02 SHANKER OUT Tu Landeros MD [facility] CPT-04061 Level 3 Est. Patient 17:21:23 SHANKER OUT Tu Landeros MD [facility] Procedures Code Procedure Name Date Entry Date Standard Description CPT-JTINJ Asp/Joint Injection 15:51:27 SHANKER OUT CPT-OV Office Visit 15:52:02 SHANKER OUT CPT-OV Office Visit 15:45:11 CDT CPT-000 Give Zostavax 14:09:06 CDT CPT-43461 Administration single or combination vaccine inc oral 15 :19:04 CDT CPT-83756 Zoster Vaccine (Zostavax) 15:19:04 CDT CPT-13316 Administration single or combination vaccine inc oral 20 :51:03 CDT CPT-17737 Influenza split virus > age 3 20:51:03 CDT CPT-71432 No Charge Offi Visit 14:52:03 CDT CPT-OV Office Visit 14:57:43 CDT CPT-OV Office Visit 15:22:32 CDT CPT-73745 Administration single or combination vaccine inc oral 11 :33:15 CDT CPT-29694 Influenza split virus > age 3 11:33:15 CDT
--- OUTSIDE RECORDS SUMMARY | 2018-04-25 19:06 | XMS REPORT | Clinical Summary ---
Author Author Admin, SACHI Organization [employer] Address Unknown Phone Unavailable Allergies, Adverse Reactions, Alerts Allergy Name Reaction Description Start Date Severity Status Provider GLIMPERIDE Critical Active eLsli Kellogg APRN AMBIEN migraine h/a Critical Active [...] magnesium metabolism URI 465.9 Active Lesli Kellogg MARKETING REPRESENTATIVE Acute upper respiratory infections of unspecified site [...] each nostril q day 07/15 MOMETASONE FUROATE 16439102151 Active Lesli Kellogg APRN Active GUAIFENESIN ER 600 MG ORAL TABLET EXTENDED RELEASE 12 HOUR 1 twice a day as needed for congestion GUAIFENESIN 11710216581 Active Lesli Kellogg APRN Active MAGNESIUM OXIDE 400 MG ORAL TABLET 1 po BID MAGNESIUM OXIDE 84246258765 Active Tu Landeros MD Active SIMVASTATIN 20 MG ORAL TABLET 0.5 po qHS SIMVASTATIN 14632010532 Active Tu Landeros MD Active DICLOFENAC SODIUM 75 MG ORAL TABLET DELAYED RELEASE 1 po BID PRN Pain DICLOFENAC SODIUM 81698452955 No Longer Active Tu Landeros MD Active GABAPENTIN 100 MG ORAL CAPSULE 1 po TID GABAPENTIN 80613462944 Active Tu Landeros MD Active DICLOFENAC SODIUM 50 MG ORAL TABLET DELAYED RELEASE 1 po BID PRN Pain DICLOFENAC SODIUM 32250014837 No Longer Active Tu Landeros MD Active CYCLOBENZAPRINE HCL 10 MG ORAL TABLET 1 po TID PRN Muscle Spasm CYCLOBENZAPRINE HCL 09185194019 No Longer Active Tu Landeros MD Active INVOKANA 100 MG ORAL TABLET 1 po qd CANAGLIFLOZIN 57454287790 Active Tu Landeros MD Active GLIPIZIDE 5 MG ORAL TABLET 1 po qd GLIPIZIDE 79083252471 No Longer Active Tu Landeros MD Active VENLAFAXINE HCL 75 MG ORAL TABLET 1 po BID VENLAFAXINE HCL 81870720410 Active Tu Landeros MD Active GLIMEPIRIDE 1 MG ORAL TABLET 1 po qd GLIMEPIRIDE 93612299716 No Longer Active Tu Landeros MD Active TRUE METRIX BLOOD GLUCOSE TEST IN VITRO STRIP Test blood sugar BID Dx: E11.9 GLUCOSE BLOOD 28896338366 Active Tu Landeros MD Active TRUE METRIX AIR GLUCOSE METER w/Device KIT Test blood glucose BID Dx: E11.9 BLOOD GLUCOSE MONITORING SUPPL 60584130499 Active Tu Landeros MD Active TRUETEST TEST IN VITRO STRIP test blood sugar twice daily. DX 250.0 GLUCOSE BLOOD 66107023136 No Longer Active Mirna Stanley LPN Active TRUEDRAW LANCING DEVICE test blood sugar twice daily dx: 250.00 LANCET DEVICES 14121986391 No Longer Active Mirna Stanley LPN Active ENALAPRIL MALEATE 20 MG ORAL TABLET 2 po qd ENALAPRIL MALEATE 88450022692 Active Tu Landeros MD Active SUPER B COMPLEX/VITAMIN C ORAL TABLET 1 qd B COMPLEX- C 59174884935 No Longer Active Tu Landeros MD Active ASPIRIN EC 81 MG ORAL TABLET DELAYED RELEASE 1 po qd ASPIRIN 79073966273 Active Tu Landeros MD Active GLUCOSAMINE 500 MG TABS 2 po qd GLUCOSAMINE Active Tu Landeros MD Active FISH OIL 1000 MG ORAL CAPSULE 1 po qd OMEGA-3 FATTY ACIDS 43704635175 Active Tu Landeros MD Active METFORMIN HCL 1000 MG ORAL TABLET 1 po BID METFORMIN HCL 14979397585 Active Tu Landeros MD Active KLOR-CON 10 10 MEQ ORAL TABLET EXTENDED RELEASE 2 po qd POTASSIUM CHLORIDE 57778659885 Active Tu Landeros MD Active FUROSEMIDE 40 MG ORAL TABLET 1 po qd FUROSEMIDE 19358183100 Active Tu Landeros MD Active REQUIP 2 MG ORAL TABLET 1 po qHS PRN Restless legs ROPINIROLE HCL 87461453510 Active Tu Landeros MD Active REQUIP 2 MG ORAL TABLET Take one tablet at bedtime prn ROPINIROLE HCL 44597332783 No Longer Active Tu Landeros MD Active VENTOLIN HFA 108 (90 Base) MCG/ACT INHALATION AEROSOL SOLUTION 1-2 puffs every 4 hours if needed for cough/congestion ALBUTEROL SULFATE 35739624598 No Longer Active Ambika Aden APRN Active ZITHROMAX 250 MG ORAL TABLET 2 po today, then 1 po q days 2-5 AZITHROMYCIN 80891094197 No Longer Active Miranda Farah APRN Active FLONASE 50 MCG/ACT NASAL SUSPENSION 1 spray each nostril twice daily until bottle empty FLUTICASONE PROPIONATE 65473721454 No Longer Active Tu Landeros MD Active COLACE 100 MG ORAL CAPSULE 1 po BID PRN Constipation DOCUSATE SODIUM 63647836796 Active Tu Landeros MD Active TRUERESULT BLOOD GLUCOSE w/Device KIT test blood sugar twice daily dx 250.00 BLOOD GLUCOSE MONITORING SUPPL 17561525053 No Longer Active Tu Landeros MD Active TRUEDRAW LANCING DEVICE Test twice a day dx 250.0 LANCET DEVICES 84845295404 No Longer Active Tu Landeros MD Active PREDNISONE 20 MG ORAL TABLET 2 tablets once daily for 2 days, then 1 tablet once daily for 2 days PREDNISONE 12454739185 No Longer Active Tu Landeros MD Active DICLOFENAC SODIUM 50 MG ORAL TABLET DELAYED RELEASE 1 tablet by mouth three times a day as needed DICLOFENAC SODIUM 79140967126 No Longer Active Fab Morales DO Active EMBRACE BLOOD GLUCOSE TEST IN VITRO STRIP test blood sugar twice daily DX 250.0 GLUCOSE BLOOD 12762685109 No Longer Active Tu Landeros MD Active TRUETEST TEST IN VITRO STRIP test blood sugar three times daily dx: 250.00 GLUCOSE BLOOD 00192716491 No Longer Active Suze Nicole NURYSA Active TRUERESULT BLOOD GLUCOSE w/Device KIT use to test blood sugar tid dx: 250.00 BLOOD GLUCOSE MONITORING SUPPL 12811138534 No Longer Active Suze Nicole NURYSA Active ALIGN 4 MG ORAL CAPSULE 1 tid PROBIOTIC PRODUCT 84453516611 No Longer Active Shaun Sy MD Active CIPRO 500 MG ORAL TABLET 1 bid x 14 days start 09-28-13 CIPROFLOXACIN HCL 26304451275 No Longer Active Shaun Sy MD Active TRAMADOL HCL 50 MG ORAL TABLET 1-2 tablets every 6 hours as needed for pain TRAMADOL HCL 44309644816 Active Tu Landeros MD Active HYDROCODONE-ACETAMINOPHEN 5-325 MG ORAL TABLET 1 tab by mouth every 6 hours as needed for pain HYDROCODONE-ACETAMINOPHEN 54460126735 No Longer Active Tu Landeros MD Active OMEPRAZOLE 20 MG ORAL CAPSULE DELAYED RELEASE 1 po q a.m. OMEPRAZOLE 65862822104 Active Fab Morales DO Active GABAPENTIN 100 MG ORAL CAPSULE 1 po bid GABAPENTIN 35525935619 No Longer Active Tu Landeros MD Active B-12 100 MCG ORAL TABLET Take one by mouth daily CYANOCOBALAMIN 96036354144 No Longer Active Tu Landeros MD Active BACTRIM DS 800-160 MG ORAL TABLET 1 bid x 14 day start 09-28-13 SULFAMETHOXAZOLE-TRIMETHOPRIM 48164317856 No Longer Active Tu Landeros MD Active CARVEDILOL 12.5 MG ORAL TABLET 1 po BID CARVEDILOL 61477456107 Active Tu Landeros MD Active TRILIPIX 135 MG ORAL CAPSULE DELAYED RELEASE 1 q hs CHOLINE FENOFIBRATE 44157816509 Active Tu Landeros MD Active FENOFIBRATE 145 MG ORAL TABLET 1 po qd FENOFIBRATE 02572709466 No Longer Active JASPREET Perez Active OMEPRAZOLE 20 MG ORAL TABLET DELAYED RELEASE 1 PO 30 MIN BEFORE 1ST MEAL 2010 OMEPRAZOLE 72688177019 No Longer Active JASPREET Perez Active SIMVASTATIN 40 MG ORAL TABLET Take one by mouth daily SIMVASTATIN 08046958475 No Longer Active JASPREET Perez Active VENLAFAXINE HCL 75 MG ORAL TABLET 1 po BID VENLAFAXINE HCL 59157276040 No Longer Active JASPREET Perez Active CIPRO 500 MG ORAL TABLET 1 tablet by mouth twice daily CIPROFLOXACIN HCL 89093459086 No Longer Active Tu Landeros MD Active VENLAFAXINE HCL 37.5 MG ORAL TABLET 1 po BID VENLAFAXINE HCL 85478370109 No Longer Active Suzebianca Nicole RMA Active LAMISIL 250 MG ORAL TABLET 1 po qd TERBINAFINE HCL 67965511580 No Longer Active Tu Landeros MD Active LORTAB 5-500 MG ORAL TABLET 1/2 to 1 tablet by mouth every 4 hours as needed for pain HYDROCODONE-ACETAMINOPHEN 99706046460 No Longer Active Tu Landeros MD Active HYDROCODONE-ACETAMINOPHEN 5-500 MG ORAL TABLET take one po Q 4-6 hours prn HYDROCODONE-ACETAMINOPHEN 59943244875 No Longer Active Tu Landeros MD Active BACTRIM DS 800-160 MG ORAL TABLET 1 po BID x 7 days SULFAMETHOXAZOLE-TRIMETHOPRIM 46969753710 No Longer Active Tu Landeros MD Active VENLAFAXINE HCL 75 MG ORAL TABLET 1 po BID VENLAFAXINE HCL 05878072576 No Longer Active Elvira Cervantes MD PhD Active TRAMADOL HCL 50 MG ORAL TABLET 1 tablets every 6 hours as needed for pain TRAMADOL HCL 27802257991 No Longer Active Tu Landeros MD Active ACCU-CHEK FASTCLIX LANCETS Use to check bloodsugar three times daily as needed LANCETS 51364948109 No Longer Active Tu Landeros MD Active ACCU-CHEDawson KEYONA PLUS IN VITRO STRIP Use for testing bloodsugars three times daily as needed GLUCOSE BLOOD 62000699347 No Longer Active Tu Landeros MD Active ACCU-CHEK KEYONA PLUS w/Device KIT Use for testing bloodsugars three times daily as needed BLOOD GLUCOSE MONITORING SUPPL 84806872950 No Longer Active Tu Landeros MD Active SPIRONOLACTONE 25 MG ORAL TABLET 0.5 tablet by mouth daily 09/09 SPIRONOLACTONE 82433284630 No Longer Active Tu Landeros MD Active ALPRAZOLAM 0.5 MG ORAL TABLET 1 tab every 6hrs as needed ALPRAZOLAM 64648359408 No Longer Active Tu Landeros MD Active AUGMENTIN 875-125 MG ORAL TABLET 1 tab by mouth twice daily with food AMOXICILLIN-POT CLAVULANATE 27696178844 No Longer Active Tu Landeros MD Active PREDNISONE 20 MG ORAL TABLET 2 tabs daily for 3 days, 1 tab daily for 3 days, 1/2 tab daily for 2 days PREDNISONE 57564316759 No Longer Active Tu Landeros MD Active XANAX 0.5 MG ORAL TABLET 1 tablet every 6 hrs prn ALPRAZOLAM 86607124705 No Longer Active Tu Landeros MD Active PREDNISONE 20 MG ORAL TABLET 2 tabs daily for 3 days, 1 tab daily for 3 days, 1/2 tab daily for 2 days PREDNISONE 63525928535 No Longer Active Tu Landeros MD Active TRIAMCINOLONE ACETONIDE 0.1 % EXTERNAL OINTMENT Apply to affected areas TID for up to 2 weeks TRIAMCINOLONE ACETONIDE 29336357381 No Longer Active Tu Landeros MD Active LORTAB 5-500 MG ORAL TABLET 1/2 to 1 tablet by mouth every 4 hours as needed for pain HYDROCODONE-ACETAMINOPHEN 58814472251 No Longer Active Tu Landeros MD Active MULTIVITAMINS TABS Take one by mouth daily MULTIPLE VITAMIN 02825433894 No Longer Active Tu Landeros MD Active MELATONIN 5 MG ORAL TABLET Take one by mouth daily MELATONIN 15542203493 No Longer Active Tu Landeros MD Active SOMA 350 MG ORAL TABLET 1 po q 6 hours prn spasm CARISOPRODOL 11214895272 No Longer Active Tu Landeros MD Active MECLIZINE HCL 25 MG ORAL TABLET CHEWABLE 1 four times a day as needed for dizziness MECLIZINE HCL 29327818866 No Longer Active Fab Morales DO Active ANGEL BREEZE 2 TEST IN VITRO DISK test tid prn GLUCOSE BLOOD 56610222384 No Longer Active Negra Scott RN Active REGLAN 10 MG ORAL TABLET 1 po TID PRN Nausea METOCLOPRAMIDE HCL 09888240653 No Longer Active Tu Landeros MD Active METFORMIN HCL 500 MG ORAL TABLET 1 PO BID METFORMIN HCL 78768742270 No Longer Active Tu Landeros MD Active AMBIEN 10 MG ORAL TABLET 1 tab by mouth at bedtime as needed for sleep 06/10 ZOLPIDEM TARTRATE 03806812035 No Longer Active uT Landeros MD Active FLUOXETINE HCL 40 MG ORAL CAPSULE 1 po q day FLUOXETINE HCL 33882723795 No Longer Active Mayra Alex Active TRILIPIX 135 MG ORAL CAPSULE DELAYED RELEASE 1 po qd CHOLINE FENOFIBRATE 96645579507 No Longer Active Tu Landeros MD Active AMBIEN 10 MG ORAL TABLET 1 tab by mouth at bedtime as needed for sleep 06/10 AMBIEN 10 MG ORAL TABLET 404191 ZOLPIDEM TARTRATE Inactive METFORMIN HCL 500 MG ORAL TABLET 1 PO BID METFORMIN HCL 500 MG ORAL TABLET 190151 METFORMIN HCL Inactive REGLAN 10 MG ORAL TABLET 1 po TID PRN Nausea REGLAN 10 MG ORAL TABLET 420900 METOCLOPRAMIDE HCL Inactive MECLIZINE HCL 25 MG ORAL TABLET CHEWABLE 1 four times a day as needed for dizziness MECLIZINE HCL 25 MG ORAL TABLET CHEWABLE 816797 MECLIZINE HCL Inactive SOMA 350 MG ORAL TABLET 1 po q 6 hours prn spasm SOMA 350 MG ORAL TABLET 360696 CARISOPRODOL Inactive MELATONIN 5 MG ORAL TABLET Take one by mouth daily MELATONIN 5 MG ORAL TABLET 214370 MELATONIN Inactive MULTIVITAMINS TABS Take one by mouth daily MULTIVITAMINS TABS MULTIPLE VITAMIN Inactive LORTAB 5-500 MG ORAL TABLET 1/2 to 1 tablet by mouth every 4 hours as needed for pain LORTAB 5-500 MG ORAL TABLET HYDROCODONE- ACETAMINOPHEN Inactive XANAX 0.5 MG ORAL TABLET 1 tablet every 6 hrs prn XANAX 0.5 MG ORAL TABLET 968885 ALPRAZOLAM Inactive AUGMENTIN 875-125 MG ORAL TABLET 1 tab by mouth twice daily with food AUGMENTIN 875-125 MG ORAL TABLET 676647 AMOXICILLIN-POT CLAVULANATE Inactive ALPRAZOLAM 0.5 MG ORAL TABLET 1 tab every 6hrs as needed ALPRAZOLAM 0.5 MG ORAL TABLET 236905 ALPRAZOLAM Inactive SPIRONOLACTONE 25 MG ORAL TABLET 0.5 tablet by mouth daily 09/09 SPIRONOLACTONE 25 MG ORAL TABLET 690728 SPIRONOLACTONE Inactive ACCU-CHEK KEYONA PLUS w/Device KIT [...] times daily as needed ACCU-CHEK FASTCLIX LANCETS 68376087330 LANCETS Inactive TRAMADOL HCL 50 MG ORAL TABLET 1 tablets every 6 hours as needed for pain TRAMADOL HCL 50 MG ORAL TABLET 046665 TRAMADOL HCL Inactive VENLAFAXINE HCL 75 MG ORAL TABLET 1 po BID VENLAFAXINE HCL 75 MG ORAL TABLET 284582 VENLAFAXINE HCL Inactive HYDROCODONE-ACETAMINOPHEN 5-500 MG ORAL TABLET take one po Q 4-6 hours prn HYDROCODONE-ACETAMINOPHEN 5-500 MG ORAL TABLET 190353 HYDROCODONE-ACETAMINOPHEN Inactive LORTAB 5-500 MG ORAL TABLET 1/2 to 1 tablet by mouth every 4 hours as needed for pain LORTAB 5-500 MG ORAL TABLET HYDROCODONE- ACETAMINOPHEN Inactive LAMISIL 250 MG ORAL TABLET 1 po qd LAMISIL 250 MG ORAL TABLET 713068 TERBINAFINE HCL Inactive VENLAFAXINE HCL 37.5 MG ORAL TABLET 1 po BID VENLAFAXINE HCL 37.5 MG ORAL TABLET 335028 VENLAFAXINE HCL Inactive CIPRO 500 MG ORAL TABLET 1 tablet by mouth twice daily CIPRO 500 MG ORAL TABLET 239778 CIPROFLOXACIN HCL Inactive VENLAFAXINE HCL 75 MG ORAL TABLET 1 po BID VENLAFAXINE HCL 75 MG ORAL TABLET 544508 VENLAFAXINE HCL Inactive SIMVASTATIN 40 MG ORAL TABLET Take one by mouth daily SIMVASTATIN 40 MG ORAL TABLET 169495 SIMVASTATIN Inactive OMEPRAZOLE 20 MG ORAL TABLET DELAYED RELEASE 1 PO 30 MIN BEFORE 1ST MEAL 2010 OMEPRAZOLE 20 MG ORAL TABLET DELAYED RELEASE 504590 OMEPRAZOLE Inactive FENOFIBRATE 145 MG ORAL TABLET 1 po qd FENOFIBRATE 145 MG ORAL TABLET 234109 FENOFIBRATE Inactive BACTRIM DS 800-160 MG ORAL TABLET 1 bid x 14 day start 09-28-13 BACTRIM DS 800-160 MG ORAL TABLET 991691 SULFAMETHOXAZOLE- TRIMETHOPRIM Inactive B-12 100 MCG ORAL TABLET Take one by mouth daily B-12 100 MCG ORAL TABLET CYANOCOBALAMIN Inactive GABAPENTIN 100 MG ORAL CAPSULE 1 po bid GABAPENTIN 100 MG ORAL CAPSULE 054967 GABAPENTIN Inactive HYDROCODONE-ACETAMINOPHEN 5-325 MG ORAL TABLET 1 tab by mouth every 6 hours as needed for pain HYDROCODONE-ACETAMINOPHEN 5-325 MG ORAL TABLET 267104 HYDROCODONE-ACETAMINOPHEN Inactive CIPRO 500 MG ORAL TABLET 1 bid x 14 days start 09-28-13 CIPRO 500 MG ORAL TABLET 908947 CIPROFLOXACIN HCL Inactive ALIGN 4 MG ORAL [...] SODIUM 50 MG ORAL TABLET DELAYED RELEASE 895250 DICLOFENAC SODIUM Inactive PREDNISONE 20 MG ORAL TABLET 2 tablets once daily for 2 days, then 1 tablet once daily for 2 days PREDNISONE 20 MG ORAL TABLET 353907 PREDNISONE Inactive TRUEDRAW LANCING DEVICE Test twice a day dx 250.0 TRUEDRAW LANCING DEVICE LANCET DEVICES Inactive TRUERESULT BLOOD GLUCOSE w/Device KIT test blood sugar twice daily dx 250.00 TRUERESULT BLOOD GLUCOSE w/Device KIT BLOOD GLUCOSE MONITORING SUPPL Inactive FLONASE 50 MCG/ACT NASAL SUSPENSION 1 spray each nostril twice daily until bottle empty FLONASE 50 MCG/ACT NASAL SUSPENSION 5911961 FLUTICASONE PROPIONATE Inactive VENTOLIN HFA 108 (90 Base) MCG/ACT INHALATION AEROSOL SOLUTION 1-2 puffs every 4 hours if needed for cough/congestion VENTOLIN HFA 108 (90 Base) MCG/ACT INHALATION AEROSOL SOLUTION ALBUTEROL SULFATE Inactive REQUIP 2 MG ORAL TABLET Take one tablet at bedtime prn REQUIP 2 MG ORAL TABLET 024784 ROPINIROLE HCL Inactive SUPER B COMPLEX/VITAMIN C ORAL TABLET 1 qd SUPER B COMPLEX/VITAMIN C ORAL TABLET 23361287278 B COMPLEX-C Inactive TRUEDRAW LANCING DEVICE test blood sugar twice daily dx: 250.00 TRUEDRAW LANCING DEVICE LANCET DEVICES Inactive TRUETEST TEST IN VITRO STRIP test blood sugar twice daily. DX 250.0 TRUETEST TEST IN VITRO STRIP GLUCOSE BLOOD Inactive CYCLOBENZAPRINE HCL 10 MG ORAL TABLET 1 po TID PRN Muscle Spasm CYCLOBENZAPRINE HCL 10 MG ORAL TABLET 407688 CYCLOBENZAPRINE HCL Inactive DICLOFENAC SODIUM 50 MG ORAL TABLET DELAYED RELEASE 1 po BID PRN Pain DICLOFENAC SODIUM 50 MG ORAL TABLET DELAYED RELEASE 904595 DICLOFENAC SODIUM Inactive DICLOFENAC SODIUM 75 MG ORAL TABLET DELAYED RELEASE 1 po BID PRN Pain DICLOFENAC SODIUM 75 MG ORAL TABLET DELAYED RELEASE 095426 DICLOFENAC SODIUM Inactive TRIAMCINOLONE ACETONIDE 0.1 % EXTERNAL OINTMENT Apply to affected areas TID for up to 2 weeks TRIAMCINOLONE ACETONIDE 0.1 % EXTERNAL OINTMENT 4317968 TRIAMCINOLONE ACETONIDE Inactive PREDNISONE 20 MG ORAL TABLET 2 tabs daily for 3 days, 1 tab daily for 3 days, 1/2 tab daily for 2 days PREDNISONE 20 MG ORAL TABLET 282638 PREDNISONE Inactive PREDNISONE 20 MG ORAL TABLET 2 tabs daily for 3 days, 1 tab daily for 3 days, 1/2 tab daily for 2 days PREDNISONE 20 MG ORAL TABLET 996104 PREDNISONE Inactive BACTRIM DS 800-160 MG ORAL TABLET 1 po BID x 7 days BACTRIM DS 800-160 MG ORAL TABLET 650167 SULFAMETHOXAZOLE-TRIMETHOPRIM Inactive ZITHROMAX 250 MG ORAL TABLET 2 po today, then 1 po q days 2-5 ZITHROMAX 250 MG ORAL TABLET 549199 AZITHROMYCIN Inactive Advance Directives Directive Description Start Date DISCUSSED WITH PATIENT -- NO DECISION MADE Immunizations Vaccine Administration Date Value Standard Description Seasonal influenza vaccine, injectable, containing preservative, for > 3 years old (Afluria, FluLaval, Fluzone, Fluvirin, Fluarix, Agriflu(>=18 yo)) Fluzone (>3 yrs.) [[id number]] Influenza, seasonal, injectable influenza immunization (Flu Vax) has been administered 02/22/2012 influenza virus vaccine, unspecified formulation Seasonal influenza vaccine, injectable, containing preservative, for > 3 years old (Afluria, FluLaval, Fluzone, Fluvirin, Fluarix, Agriflu(>=18 yo)) Fluzone (>3 yrs.) [OPF461] Influenza, seasonal, injectable Vital Signs Date Name [...] ... - Chemistry sodium, serum 141 mmol/L 831-019 5005/01/16 carbon dioxide, venous blood 28.3 mmol/L 21.0-32.0 [...] 6.7 % 4.3-6.0 cholesterol, serum 106 mg/dL 982-611 7801/01/16 triglyceride, serum, fasting 173 mg/dL 30-200 HDL [...] A1c - Chemistry cholesterol, serum 135 mg/dL 362-232 8313/05/17 HDL cholesterol, serum 41 mg/dL > OR=46 triglyceride, serum, fasting 206 mg/dL <150 LDL cholesterol, serum 53 MG/DL (CALC) mg/dL <130 cholesterol/HDL ratio, serum 3.3 (calc) < OR=5.0 Lab Report: HGBA1C - Chemistry hemoglobin A1C, blood, as % of total hemoglobin 6.5 % 4.3-6.0 Encounters Code Encounter Date Provider Facility CPT-99500 Level 3 Est. Patient 10:13:19 COMMERCIAL LEASING MANAGER Lesli Kellogg APRN [facility] CPT-56012 Level 4 Est. Patient 13:42:02 COMMERCIAL LEASING MANAGER Tu Landeros MD [facility] CPT-35314 Level 3 Est. Patient 14:20:36 CDT Tu Landeros MD [facility] CPT-90068 Level 4 Est. Patient 14:28:34 CDT Tu Landeros MD [facility] CPT-40808 Level 3 Est. Patient 13:33:09 CDT Tu Landeros MD [facility] CPT-16283 Level 4 Est. Patient 14:29:21 CDT Tu Landeros MD [facility] CPT-17556 Level 4 Est. Patient 09:08:17 COMMERCIAL LEASING MANAGER Tu Landeros MD [facility] CPT-24558 Level 4 Est. Patient 14:40:19 CDT Tu Landeros MD [facility] CPT-63134 Level 4 Est. Patient 14:06:04 COMMERCIAL LEASING MANAGER Tu Landeros MD [facility] CPT-63495 Level 3 Est. Patient 14:05:18 COMMERCIAL LEASING MANAGER Tu Landeros MD [facility] CPT-50352 Level 3 Est. Patient 10:06:54 COMMERCIAL LEASING MANAGER Miranda Farah MARKETING REPRESENTATIVE [facility] CPT-09188 Level 4 Est. Patient 13:50:18 COMMERCIAL LEASING MANAGER Tu Landeros MD [facility] CPT-68203 Level 3 Est. Patient 10:30:04 CDT Tu Landeros MD [facility] CPT-66235 Level 4 Est. Patient 11:03:38 CDT Tu Landeros MD [facility] CPT-00240 Level 3 Est. Patient 10:20:44 CDT Fab Morales DO [facility] CPT-77772 Level 4 Est. Patient 14:38:57 CDT Tu Landeros MD [facility] CPT-75815 Level 4 Est. Patient 14:27:39 COMMERCIAL LEASING MANAGER Tu Landeros MD [facility] CPT-75325 Level 4 Est. Patient 09:45:25 CDT Tu Landeros MD [facility] CPT-45158 Level 4 Est. Patient 09:05:20 COMMERCIAL LEASING MANAGER Tu Landeros MD [facility] CPT-53407 Level 4 Est. Patient 14:09:06 CDT Tu Landeros MD [facility] CPT-75934 Level 3 Est. Patient 13:36:54 CDT Tu Landeros MD [facility] CPT-09266 Level 3 Est. Patient 08:59:14 CDT Tu Landeros MD [facility] CPT-11864 Level 3 Est. Patient 13:48:35 CDT Fab Morales DO [facility] CPT-30374 Level 4 Est. Patient 10:05:48 CDT Tu Landeros MD [facility] CPT-31193 Level 3 Est. Patient 13:38:42 CDT Marek BANKS [facility] CPT-46595 Level 5 Est. Patient 08:08:39 CDT Jerrica FRANCIS [facility] CPT-35299 Level 4 Est. Patient 14:23:38 CDT Tu Landeros MD [facility] CPT-25275 Level 3 Est. Patient 11:44:04 CDT Tu Landeros MD [facility] CPT-49748 Level 3 Est. Patient 11:03:20 COMMERCIAL LEASING MANAGER Tu Landeros MD [facility] CPT-17286 Level 3 Est. Patient 11:03:14 COMMERCIAL LEASING MANAGER Tu Landeros MD [facility] CPT-28159 Level 3 Est. Patient 12:42:49 CDT Tu Landeros MD [facility] CPT-96726 Level 3 Est. Patient 11:52:06 CDT Tu Landeros MD [facility] CPT-23875 Level 3 Est. Patient 13:58:11 CDT Tu Landeros MD [facility] CPT-31874 Level 3 Est. Patient 17:50:07 CDT Fab Morales DO [facility] CPT-97475 Level 3 Est. Patient 12:06:29 CDT Elvira Cervantes MD PhD [facility] CPT-00258 Level 3 Est. Patient 15:50:32 CDT Tu Landeros MD [facility] CPT-85561 Level 4 Est. Patient 16:08:29 CDT Tu Landeros MD [facility] CPT-00572 Level 3 Est. Patient 16:04:19 CDT Tu Landeros MD [facility] CPT-60192 Level 3 Est. Patient 11:22:30 COMMERCIAL LEASING MANAGER Tu Landeros MD [facility] CPT-28475 Level 4 Est. Patient 16:24:02 COMMERCIAL LEASING MANAGER Tu Landeros MD [facility] CPT-19774 Level 3 Est. Patient 17:21:23 COMMERCIAL LEASING MANAGER Tu Landeros MD [facility] Procedures Code Procedure Name Date Entry Date Standard Description CPT-37279 Shoulder, right, comp min 2V - XRAY USE ONLY 13:50:22 CDT CPT-G0009 Administration of Pneumococcal Vaccine 15:08:26 CDT CPT-85654 Prevnar 13 Intramuscular Suspension 15:08:26 CDT 10/08 CPT-G0439 Subsequent Annual Wellness Exam 14:29:22 CDT CPT-23475 Venipuncture Draw Fee 13:15:35 CDT CPT-84986 Magnesium - LAB USE ONLY 11:14:20 COMMERCIAL LEASING MANAGER CPT-11578 Lipid - LAB USE ONLY 11:14:20 COMMERCIAL LEASING MANAGER CPT-34960 HGBA1C - LAB USE ONLY 11:14:20 COMMERCIAL LEASING MANAGER CPT-98160 CMP - LAB USE ONLY 11:14:19 COMMERCIAL LEASING MANAGER CPT-59582 CBC - LAB USE ONLY 11:14:19 COMMERCIAL LEASING MANAGER CPT-79075 Venipuncture Draw Fee 11:14:18 COMMERCIAL LEASING MANAGER CPT-52674 First Vx - Ix admin for Medicare patients 16:46:52 CDT CPT-95765 Fluzone Preservative Free Intramuscular Suspension 16:46 :51 CDT CPT-65072 CBC - LAB USE ONLY 17:14:46 CDT CPT-66985 HGBA1C - LAB USE ONLY 17:14:46 CDT CPT-35191 Venipuncture Draw Fee 17:14:46 CDT CPT-G0438 Initial Annual Wellness Exam 14:13:04 CDT CPT-20959 Breathing Tx 10:06:54 COMMERCIAL LEASING MANAGER CPT-72193 Postop F/U Visit 10:02:45 CDT CPT-LR Lesion Removal 09:02:56 CDT CPT-JTINJ Asp/Joint Injection 15:51:27 COMMERCIAL LEASING MANAGER CPT-OV Office Visit 15:52:02 COMMERCIAL LEASING MANAGER CPT-OV Office Visit 15:45:11 CDT CPT-000 Give Zostavax 14:09:06 CDT CPT-02800 Administration single or combination vaccine inc oral 15 :19:04 CDT CPT-61574 Zoster Vaccine (Zostavax) 15:19:04 CDT CPT-79751 Administration single or combination vaccine inc oral 20 :51:03 CDT CPT-85560 Influenza split virus > age 3 20:51:03 CDT CPT-58068 No Charge Offi Visit 14:52:03 CDT CPT-OV Office Visit 14:57:43 CDT CPT-OV Office Visit 15:22:32 CDT CPT-27701 Administration single or combination vaccine inc oral 11 :33:15 CDT CPT-94702 Influenza split virus > age 3 11:33:15 CDT
--- OUTSIDE RECORDS SUMMARY | 2018-04-25 19:08 | XMS REPORT | Clinical Summary ---
Author Author Admin, SACHI Organization [employer] Address Unknown Phone Unavailable Allergies, Adverse [...] MG TABS 1 po BID VENLAFAXINE HCL 41018597995 Active Tu Landeros MD Active GABAPENTIN 100 MG CAPS 1 po BID GABAPENTIN 63419607836 Active José Luis Becerra MD Active REQUIP 2 MG TABS Take one tablet at bedtime prn ROPINIROLE HCL 44001703320 No Longer Active Tu Landeros MD Active VENTOLIN HFA 108 (90 BASE) MCG/ACT AERS 1-2 puffs every 4 hours if needed for cough/congestion ALBUTEROL SULFATE 24440176253 No Longer Active Ambika Aden APRN Active ZITHROMAX 250 MG TAB 2 po today, then 1 po q days 2-5 AZITHROMYCIN 34499591700 No Longer Active Miranda Suresh APRN Active METFORMIN HCL 1000 MG TABS 1 tablet by mouth twice daily METFORMIN HCL 53526509120 Active Tu Landeros MD Active FLONASE 50 MCG/ACT SUSP 1 spray each nostril twice daily until bottle empty FLUTICASONE PROPIONATE 09391962844 No Longer Active Tu Landeros MD Active COLACE 100 MG CAP 1 po BID PRN Constipation DOCUSATE SODIUM 66669964800 Active uT Landeros MD Active SIMVASTATIN 40 MG TABS 0.5 tab daily at bedtime SIMVASTATIN 87195811171 Active Tu Landeros MD Active TRUERESULT BLOOD GLUCOSE W/DEVICE KIT test blood sugar twice daily dx 250.00 BLOOD GLUCOSE MONITORING SUPPL 51438553023 No Longer Active Tu Landeros MD Active TRUEDRAW LANCING DEVICE MISC Test twice a day dx 250.0 LANCET DEVICES 91804020692 No Longer Active Tu Landeros MD Active PREDNISONE 20 MG TAB 2 tablets once daily for 2 days, then 1 tablet once daily for 2 days PREDNISONE 14014227792 No Longer Active Tu Landeros MD Active DICLOFENAC SODIUM 50 MG TBEC 1 tablet by mouth three times a day as needed DICLOFENAC SODIUM 01797534066 No Longer Active Fab Morales DO Active TRUEDRAW LANCING DEVICE MISC test blood sugar twice daily dx: 250.00 LANCET DEVICES 56574092731 Active Tu Landeros MD Active TRUETEST TEST INVITR STRP test blood sugar twice daily. DX 250.0 GLUCOSE BLOOD 63288450021 Active Tu Landeros MD Active EMBRACE BLOOD GLUCOSE TEST STRP test blood sugar twice daily DX 250.0 2014 GLUCOSE BLOOD 10669776975 No Longer Active Tu Landeros MD Active TRUETEST TEST STRP test blood sugar three times daily dx: 250.00 GLUCOSE BLOOD 92317928436 No Longer Active Suze Corey VOGEL Active TRUERESULT BLOOD GLUCOSE W/DEVICE KIT use to test blood sugar tid dx: 250.00 BLOOD GLUCOSE MONITORING SUPPL 22774653310 No Longer Active Suze Corey RMA Active ALIGN 4 MG CAPS 1 tid PROBIOTIC PRODUCT 72295141914 No Longer Active Shaun Sy MD Active CIPRO 500 MG TABS 1 bid x 14 days start 09-28-13 CIPROFLOXACIN HCL 87789451212 No Longer Active Shaun Sy MD Active TRAMADOL HCL 50 MG TABS 1-2 tablets every 6 hours as needed for pain TRAMADOL HCL 61280270193 Active José Luis Becerra MD Active HYDROCODONE-ACETAMINOPHEN 5-325 MG TABS 1 tab by mouth every 6 hours as needed for pain HYDROCODONE-ACETAMINOPHEN 90490108890 No Longer Active Tu Landeros MD Active OMEPRAZOLE 20 MG CPDR 1 po q a.m. OMEPRAZOLE 57977981306 Active Tu Landeros MD Active GABAPENTIN 100 MG CAPS 1 po bid GABAPENTIN 19954104791 No Longer Active Tu Landeros MD Active B-12 100 MCG TABS Take one by mouth daily CYANOCOBALAMIN 75057569015 No Longer Active Tu Landeros MD Active BACTRIM DS 800-160 MG TABS 1 bid x 14 day start 09-28-13 SULFAMETHOXAZOLE-TRIMETHOPRIM 49547294718 No Longer Active Tu Landeros MD Active CARVEDILOL 12.5 MG TABS 1 po BID CARVEDILOL 44450147573 Active Tu Landeros MD Active SUPER B COMPLEX/VITAMIN C TABS 1 qd B COMPLEX-C 88016679941 Active JASPREET Perez Active TRILIPIX 135 MG CPDR 1 q hs CHOLINE FENOFIBRATE 26399325879 Active Tu Lnaderos MD Active FENOFIBRATE 145 MG TABS 1 po qd FENOFIBRATE 83044021803 No Longer Active JASPREET Perez Active OMEPRAZOLE 20 MG TBEC 1 PO 30 MIN BEFORE 1ST MEAL OMEPRAZOLE 08566804518 No Longer Active JASPREET Perez Active SIMVASTATIN 40 MG TABS Take one by mouth daily SIMVASTATIN 34823270691 No Longer Active JASPREET Perez Active VENLAFAXINE HCL 75 MG TABS 1 po BID VENLAFAXINE HCL 05413548985 No Longer Active Wood Norma, RMA Active CIPRO 500 MG TAB 1 tablet by mouth twice daily CIPROFLOXACIN HCL 52332563361 No Longer Active Tu Landeros MD Active VENLAFAXINE HCL 37.5 MG TABS 1 po BID VENLAFAXINE HCL 27230977840 No Longer Active Suze Nicole RMA Active LAMISIL 250 MG TAB 1 po qd TERBINAFINE HCL 52809917858 No Longer Active Tu Landeros MD Active LORTAB 5 5-500 MG TABS 1/2 to 1 tablet by mouth every 4 hours as needed for pain HYDROCODONE-ACETAMINOPHEN 36612587551 No Longer Active Tu Landeros MD Active ENALAPRIL MALEATE 20 MG TABS 1.5 po qd ENALAPRIL MALEATE 25466575675 Active Tu Landeros MD Active HYDROCODONE-ACETAMINOPHEN 5-500 MG TABS take one po Q 4-6 hours prn HYDROCODONE-ACETAMINOPHEN 23571337878 No Longer Active Tu Landeros MD Active BACTRIM DS 800-160 MG TABS 1 po BID x 7 days SULFAMETHOXAZOLE-TRIMETHOPRIM 93380378559 No Longer Active Tu Landeros MD Active VENLAFAXINE HCL 75 MG TABS 1 po BID VENLAFAXINE HCL 48977229666 No Longer Active Elvira Cervantes MD PhD Active TRAMADOL HCL 50 MG TABS 1 tablets every 6 hours as needed for pain TRAMADOL HCL 29666499962 No Longer Active Tu Landeros MD Active ACCU-CHEK FASTCLIX LANCETS MISC Use to check bloodsugar three times daily as needed LANCETS 66884406596 No Longer Active Tu Landeros MD Active ACCU-CHEK KEYONA PLUS STRP Use for testing bloodsugars three times daily as needed GLUCOSE BLOOD 49754601002 No Longer Active Tu Landeros MD Active ACCU-CHEK KEYONA PLUS W/DEVICE KIT Use for testing bloodsugars three times daily as needed BLOOD GLUCOSE MONITORING SUPPL 07392012591 No Longer Active Tu Landeros MD Active SPIRONOLACTONE 25 MG TAB 0.5 tablet by mouth daily SPIRONOLACTONE 17772571726 No Longer Active Tu Landeros MD Active ALPRAZOLAM 0.5 MG TABS 1 tab every 6hrs as needed ALPRAZOLAM 66457995481 No Longer Active Tu Landeros MD Active AUGMENTIN 875-125 MG TAB 1 tab by mouth twice daily with food AMOXICILLIN-POT CLAVULANATE 36176063932 No Longer Active Tu Landeros MD Active PREDNISONE 20 MG TAB 2 tabs daily for 3 days, 1 tab daily for 3 days, 1/2 tab daily for 2 days PREDNISONE 74886539953 No Longer Active Tu Landeros MD Active XANAX 0.5 MG TABS 1 tablet every 6 hrs prn ALPRAZOLAM 53517393732 No Longer Active Tu Landeros MD Active PREDNISONE 20 MG TAB 2 tabs daily for 3 days, 1 tab daily for 3 days, 1/2 tab daily for 2 days PREDNISONE 15434659193 No Longer Active Tu Landeros MD Active TRIAMCINOLONE ACETONIDE 0.1 % OINT Apply to affected areas TID for up to 2 weeks TRIAMCINOLONE ACETONIDE 60567669444 No Longer Active Tu Landeros MD Active LORTAB 5 5-500 MG TABS 1/2 to 1 tablet by mouth every 4 hours as needed for pain HYDROCODONE-ACETAMINOPHEN 92896403778 No Longer Active Tu Landeros MD Active MULTIVITAMINS TABS Take one by mouth daily MULTIPLE VITAMIN 37566833185 No Longer Active Tu Landeros MD Active MELATONIN 5 MG TABS Take one by mouth daily MELATONIN 22802801801 No Longer Active Tu Landeros MD Active SOMA 350 MG TAB 1 po q 6 hours prn spasm CARISOPRODOL 78857808243 No Longer Active Tu Landeros MD Active MECLIZINE HCL 25 MG CHEW TAB 1 four times a day as needed for dizziness 08/05 MECLIZINE HCL 64860404908 No Longer Active Fab Morales DO Active ANGEL BREEZE 2 TEST DISK test tid prn GLUCOSE BLOOD 98006417193 No Longer Active Negra Scott RN Active REGLAN 10 MG TAB 1 po TID PRN Nausea METOCLOPRAMIDE HCL 88900223920 No Longer Active Tu Landeros MD Active METFORMIN HCL 500 MG TABS 1 PO BID METFORMIN HCL 56736710333 No Longer Active Tu Landeros MD Active AMBIEN 10 MG TAB 1 tab by mouth at bedtime as needed for sleep ZOLPIDEM TARTRATE 35523638853 No Longer Active Tu Landeros MD Active FLUOXETINE HCL 40 MG CAPS 1 po q day FLUOXETINE HCL 61102653983 No Longer Active Mayra Prompton Active FISH OIL 1000 MG CAPS Take one by mouth daily OMEGA-3 FATTY ACIDS 12077339919 Active Tu Landeros MD Active GLUCOSAMINE 500 MG TABS Take 2 tab po qd GLUCOSAMINE 08436039946 Active Tu Landeros MD Active TRILIPIX 135 MG CPDR 1 po qd CHOLINE FENOFIBRATE 67571034934 No Longer Active Tu Landeros MD Active ASPIRIN 81 MG CHEW TAB 1 tablet by mouth daily ASPIRIN 44344712160 Active Tu Landeros MD Active FUROSEMIDE 40 MG TAB 1 tablet by mouth daily FUROSEMIDE 22423746688 Active Tu Landeros MD Active KLOR-CON 10 10 MEQ CR-TABS TAKE 2 TABS DAILY POTASSIUM CHLORIDE 09960139845 Active Tu Landeros MD Active AMBIEN 10 MG TAB 1 tab by mouth at bedtime as needed for sleep AMBIEN 10 MG TAB 568213 ZOLPIDEM TARTRATE Inactive METFORMIN HCL 500 MG TABS 1 PO BID METFORMIN HCL 500 MG TABS 992437 METFORMIN HCL Inactive REGLAN 10 MG TAB 1 po TID PRN Nausea REGLAN 10 MG TAB 315117 METOCLOPRAMIDE HCL Inactive MECLIZINE HCL 25 MG CHEW TAB 1 four times a day as needed for dizziness 08/05 MECLIZINE HCL 25 MG CHEW TAB 881156 MECLIZINE HCL Inactive SOMA 350 MG TAB 1 po q 6 hours prn spasm SOMA 350 MG TAB 940311 CARISOPRODOL Inactive MELATONIN 5 MG TABS Take one by mouth daily MELATONIN 5 MG TABS 717279 MELATONIN Inactive MULTIVITAMINS TABS Take one by mouth daily MULTIVITAMINS TABS MULTIPLE VITAMIN Inactive LORTAB 5 5-500 MG TABS 1/2 to 1 tablet by mouth every 4 hours as needed for pain LORTAB 5 5-500 MG TABS HYDROCODONE- ACETAMINOPHEN Inactive XANAX 0.5 MG TABS 1 tablet every 6 hrs prn XANAX 0.5 MG TABS 541764 ALPRAZOLAM Inactive AUGMENTIN 875-125 MG TAB 1 tab by mouth twice daily with food AUGMENTIN 875-125 MG TAB 406035 AMOXICILLIN-POT CLAVULANATE Inactive ALPRAZOLAM 0.5 MG TABS 1 tab every 6hrs as needed ALPRAZOLAM 0.5 MG TABS 228839 ALPRAZOLAM Inactive SPIRONOLACTONE 25 MG TAB 0.5 tablet by mouth daily SPIRONOLACTONE 25 MG TAB 029053 SPIRONOLACTONE Inactive ACCU-CHEK KEYONA PLUS W/DEVICE KIT Use for testing bloodsugars three times daily as needed ACCU-CHEK KEYONA PLUS W/DEVICE KIT BLOOD GLUCOSE MONITORING SUPPL Inactive ACCU-CHEK KEYONA PLUS STRP Use for testing bloodsugars three times daily as needed ACCU-CHEK KEYONA PLUS STRP GLUCOSE BLOOD Inactive ACCU-CHEK FASTCLIX LANCETS MISC Use to check bloodsugar three times daily as needed ACCU-CHEK FASTCLIX LANCETS MISC 59148255674 [facility] Inactive TRAMADOL HCL 50 MG TABS 1 tablets every 6 hours as needed for pain TRAMADOL HCL 50 MG TABS 210099 TRAMADOL HCL Inactive VENLAFAXINE HCL 75 MG TABS 1 po BID VENLAFAXINE HCL 75 MG TABS 418148 VENLAFAXINE HCL Inactive HYDROCODONE-ACETAMINOPHEN 5-500 MG TABS take one po Q 4-6 hours prn HYDROCODONE-ACETAMINOPHEN 5-500 MG TABS HYDROCODONE- ACETAMINOPHEN Inactive LORTAB 5 5-500 MG TABS 1/2 to 1 tablet by mouth every 4 hours as needed for pain LORTAB 5 5-500 MG TABS HYDROCODONE- ACETAMINOPHEN Inactive LAMISIL 250 MG TAB 1 po qd LAMISIL 250 MG TAB 537677 TERBINAFINE HCL Inactive VENLAFAXINE HCL 37.5 MG TABS 1 po BID VENLAFAXINE HCL 37.5 MG TABS 692202 VENLAFAXINE HCL Inactive CIPRO 500 MG TAB 1 tablet by mouth twice daily CIPRO 500 MG TAB 110689 CIPROFLOXACIN HCL Inactive VENLAFAXINE HCL 75 MG TABS 1 po BID VENLAFAXINE HCL 75 MG TABS 940670 VENLAFAXINE HCL Inactive SIMVASTATIN 40 MG TABS Take one by mouth daily SIMVASTATIN 40 MG TABS 587635 SIMVASTATIN Inactive OMEPRAZOLE 20 MG TBEC 1 PO 30 MIN BEFORE 1ST MEAL OMEPRAZOLE 20 MG TBEC 334220 OMEPRAZOLE Inactive FENOFIBRATE 145 MG TABS 1 po qd FENOFIBRATE 145 MG TABS 389752 FENOFIBRATE Inactive BACTRIM DS 800-160 MG TABS 1 bid x 14 day start 09-28-13 BACTRIM DS 800-160 MG TABS 755944 SULFAMETHOXAZOLE-TRIMETHOPRIM Inactive B-12 100 MCG TABS Take one by mouth daily B-12 100 MCG TABS CYANOCOBALAMIN Inactive GABAPENTIN 100 MG CAPS 1 po bid GABAPENTIN 100 MG CAPS 318425 GABAPENTIN Inactive HYDROCODONE-ACETAMINOPHEN 5-325 MG TABS 1 tab by mouth every 6 hours as needed for pain HYDROCODONE-ACETAMINOPHEN 5-325 MG TABS 974795 HYDROCODONE-ACETAMINOPHEN Inactive CIPRO 500 MG TABS 1 bid x 14 days start 09-28-13 CIPRO 500 MG TABS 360580 CIPROFLOXACIN HCL Inactive ALIGN 4 MG CAPS [...] as needed DICLOFENAC SODIUM 50 MG TBEC 141799 DICLOFENAC SODIUM Inactive PREDNISONE 20 MG TAB 2 tablets once daily for 2 days, then 1 tablet once daily for 2 days PREDNISONE 20 MG TAB 189492 PREDNISONE Inactive TRUEDRAW LANCING DEVICE MISC Test [...] at bedtime prn REQUIP 2 MG TABS 091938 ROPINIROLE HCL Inactive TRIAMCINOLONE ACETONIDE 0.1 % OINT Apply to affected areas TID for up to 2 weeks TRIAMCINOLONE ACETONIDE 0.1 % OINT 7367749 TRIAMCINOLONE ACETONIDE Inactive PREDNISONE 20 MG TAB 2 tabs daily for 3 days, 1 tab daily for 3 days, 1/2 tab daily for 2 days PREDNISONE 20 MG TAB 468578 PREDNISONE Inactive PREDNISONE 20 MG TAB 2 tabs daily for 3 days, 1 tab daily for 3 days, 1/2 tab daily for 2 days PREDNISONE 20 MG TAB 498605 PREDNISONE Inactive BACTRIM DS 800-160 MG TABS 1 po BID x 7 days BACTRIM DS 800-160 MG TABS 818582 SULFAMETHOXAZOLE-TRIMETHOPRIM Inactive ZITHROMAX 250 MG TAB 2 po today, then 1 po q days 2-5 ZITHROMAX 250 MG TAB 0968604 AZITHROMYCIN Inactive Advance Directives Directive Description Start Date DISCUSSED WITH PATIENT -- NO DECISION MADE Immunizations Vaccine Administration Date Value Standard Description Seasonal influenza vaccine, injectable, containing preservative, for > 3 years old (Afluria, FluLaval, Fluzone, Fluvirin, Fluarix, Agriflu(>=18 yo)) Fluzone (>3 yrs.) [[id number]] Influenza, seasonal, injectable influenza immunization (Flu Vax) has been administered 02/22/2012 influenza virus vaccine, unspecified formulation Seasonal influenza vaccine, injectable, containing preservative, for > 3 years old (Afluria, FluLaval, Fluzone, Fluvirin, Fluarix, Agriflu(>=18 yo)) Fluzone (>3 yrs.) [[id number]] Influenza, seasonal, injectable Vital Signs Date Name [...] 7.4 % 4.3-6.0 sodium, serum 140 mmol/L 891-408 2698/09/07 potassium, serum 4.3 mmol/L 3.5-5.2 chloride, serum 104 mmol/L 98-107 carbon dioxide, venous blood 27.7 mmol/L 21.0-32.0 blood glucose 156 mg/dL 65-110 calcium, serum 9.3 mg/dL 8.5-10.1 urea nitrogen, blood 23 mg/dL 7-18 creatinine, serum 1.21 mg/dL 0.55-1.30 Lab Report: Lipid Panel, Comp. Metabolic Panel - Chemistry cholesterol, serum 124 mg/dL 554-749 4334/01/12 triglyceride, serum, fasting 135 mg/dL 30-200 HDL cholesterol, serum 41 mg/dL 32-96 LDL cholesterol, serum 56 mg/dL 0-130 sodium, serum 140 mmol/L 494-911 8205/01/12 carbon dioxide, venous blood 27.7 mmol/L 21.0-32.0 potassium, serum 4.5 mmol/L 3.5-5.2 chloride, serum 104 mmol/L 98-107 blood glucose 139 mg/dL 65-110 urea nitrogen, blood 16 mg/dL 7-18 alanine aminotransferase (SGPT), serum 32 U/L 12-78 aspartate aminotransferase (SGOT), serum 25 U/L 15-37 calcium, serum 9.1 mg/dL 8.5-10.1 bilirubin, serum, total 0.50 mg/dL 0.00-1.00 Encounters Code Encounter Date Provider Facility CPT-47315 Level 4 Est. Patient 14:40:19 CDT Tu Landeros MD [facility] CPT-54904 Level 4 Est. Patient 14:06:04 SOLUTION ANALYST Tu Landeros MD [facility] CPT-47044 Level 3 Est. Patient 14:05:18 SOLUTION ANALYST Tu Landeros MD [facility] CPT-34308 Level 3 Est. Patient 10:06:54 SOLUTION ANALYST Miranda Suresh APRN [facility] CPT-15665 Level 4 Est. Patient 13:50:18 SOLUTION ANALYST Tu Landeros MD [facility] CPT-70902 Level 3 Est. Patient 10:30:04 CDT Tu Landeros MD [facility] CPT-65452 Level 4 Est. Patient 11:03:38 CDT Tu Landeros MD [facility] CPT-85749 Level 3 Est. Patient 10:20:44 CDT Fab Morales DO [facility] CPT-94971 Level 4 Est. Patient 14:38:57 CDT Tu Landeros MD [facility] CPT-01151 Level 4 Est. Patient 14:27:39 SOLUTION ANALYST Tu Landeros MD [facility] CPT-24872 Level 4 Est. Patient 09:45:25 CDT Tu Landeros MD [facility] CPT-94538 Level 4 Est. Patient 09:05:20 SOLUTION ANALYST Tu Landeros MD [facility] CPT-32270 Level 4 Est. Patient 14:09:06 CDT Tu Landeros MD [facility] CPT-52330 Level 3 Est. Patient 13:36:54 CDT Tu Landeros MD [facility] CPT-01504 Level 3 Est. Patient 08:59:14 CDT Tu Landeros MD [facility] CPT-48698 Level 3 Est. Patient 13:48:35 CDT Fab Morales DO [facility] CPT-47888 Level 4 Est. Patient 10:05:48 CDT Tu Landeros MD [facility] CPT-37457 Level 3 Est. Patient 13:38:42 CDT Marke BANKS [facility] CPT-38737 Level 5 Est. Patient 08:08:39 CDT Jerrica FRANCIS [facility] CPT-16039 Level 4 Est. Patient 14:23:38 CDT Tu Landeros MD [facility] CPT-52680 Level 3 Est. Patient 11:44:04 CDT Tu Landeors MD [facility] CPT-66261 Level 3 Est. Patient 11:03:20 SOLUTION ANALYST Tu Landeros MD [facility] CPT-85360 Level 3 Est. Patient 11:03:14 SOLUTION ANALYST Tu Landeros MD [facility] CPT-02219 Level 3 Est. Patient 12:42:49 CDT Tu Landeros MD [facility] CPT-96132 Level 3 Est. Patient 11:52:06 CDT Tu Landeros MD [facility] CPT-43394 Level 3 Est. Patient 13:58:11 CDT Tu Landeros MD [facility] CPT-11642 Level 3 Est. Patient 17:50:07 CDT Fab Morales DO [facility] CPT-61063 Level 3 Est. Patient 12:06:29 CDT Elvira Cervantes MD [facility] CPT-29560 Level 3 Est. Patient 15:50:32 CDT Tu Landeros MD [facility] CPT-04849 Level 4 Est. Patient 16:08:29 CDT Tu Landeros MD [facility] CPT-15895 Level 3 Est. Patient 16:04:19 CDT Tu Landeros MD [facility] CPT-41555 Level 3 Est. Patient 11:22:30 SOLUTION ANALYST Tu Landeros MD [facility] CPT-27616 Level 4 Est. Patient 16:24:02 SOLUTION ANALYST Tu Landeros MD [facility] CPT-60147 Level 3 Est. Patient 17:21:23 SOLUTION ANALYST Tu Landeros MD [facility] Procedures Code Procedure Name Date Entry Date Standard Description CPT-92306 First Vx - Ix admin for Medicare patients 16:46:52 CDT CPT-78167 Fluzone Preservative Free Intramuscular Suspension 16:46 :51 CDT CPT-53031 CBC - LAB USE ONLY 17:14:46 CDT CPT-68570 HGBA1C - LAB USE ONLY 17:14:46 CDT CPT-52157 Venipuncture Draw Fee 17:14:46 CDT CPT-G0438 Initial Annual Wellness Exam 14:13:04 CDT CPT-96541 Breathing Tx 10:06:54 SOLUTION ANALYST CPT-28722 Postop F/U Visit 10:02:45 CDT CPT-LR Lesion Removal 09:02:56 CDT CPT-JTINJ Asp/Joint Injection 15:51:27 SOLUTION ANALYST CPT-OV Office Visit 15:52:02 SOLUTION ANALYST CPT-OV Office Visit 15:45:11 CDT CPT-000 Give Zostavax 14:09:06 CDT CPT-02526 Administration single or combination vaccine inc oral 15 :19:04 CDT CPT-82929 Zoster Vaccine (Zostavax) 15:19:04 CDT CPT-44545 Administration single or combination vaccine inc oral 20 :51:03 CDT CPT-29486 Influenza split virus > age 3 20:51:03 CDT CPT-29380 No Charge Offi Visit 14:52:03 CDT CPT-OV Office Visit 14:57:43 CDT CPT-OV Office Visit 15:22:32 CDT CPT-58945 Administration single or combination vaccine inc oral 11 :33:15 CDT CPT-29179 Influenza split virus > age 3 11:33:15 CDT
--- OUTSIDE RECORDS SUMMARY | 2018-04-25 19:09 | XMS REPORT | Clinical Summary ---
Author Author Admin, SACHI Clemons [facility] Address Unknown Phone Unavailable Allergies, [...] Standard Description Annotate DEPRESSION 311 Active Tu Landeors MD Depressive disorder, not elsewhere classified HYPERLIPIDEMIA, OTHER UNSPECIFIED 272.4 Active Tu Landeros MD Other and [...] MD Benign paroxysmal positional vertigo HYPERTENSION 401.1 Active Tu Landeros MD Benign essential [...] swelling, mass, or lump HEALTH SCREENING V70.0 Active Tu Landeros MD Routine general medical examination at a health care facility ONYCHOMYCOSIS 110.1 Resolved Tu Landeros MD Dermatophytosis of nail Gastroesophageal reflux disease 530.81 Active Tu Landeros MD Esophageal reflux Restless leg syndrome 333.94 Active Tu Landeros MD Restless legs syndrome (RLS) Open wound of abdominal wall, anterior, complicated 879.3 Active Shaun Sy MD Open wound of abdominal wall, anterior , complicated POSTMENOPAUSAL BLEEDING ICD-627.1 Inactive Elvira Cervantes MD [...] CONTUSION OF UNSPECIFIED SITE ICD-924.9 Inactive Tu Lnaderos MD PRESSURE ULCER UNSPECIFIED SITE ICD-707.00 Inactive Tu Landeros MD LOCALIZED SUPERFICIAL SWELLING MASS OR LUMP ICD-782.2 Inactive Tu Landeros MD ONYCHOMYCOSIS ICD-110.1 Inactive Tu Landeros MD Medication List Medication Instructions Start Date Stop Date Generic Name NDC Status Provider Patient Instruction CARVEDILOL 12.5 MG TABS 1 po BID CARVEDILOL 72009512851 Active Tu Landeros MD Active CIPRO 500 MG TABS 1 bid x 14 days start 09-28-13 CIPROFLOXACIN HCL 69489855820 Active JASPREET Perez Active ALIGN 4 MG CAPS 1 tid PROBIOTIC PRODUCT 19497287946 Active JASPREET Perez Active BACTRIM DS 800-160 MG TABS 1 bid x 14 day start 09-28-13 SULFAMETHOXAZOLE-TRIMETHOPRIM 05391347592 Active JASPREET Perez Active GABAPENTIN 300 MG CAPS 1 tid GABAPENTIN 83808604557 Active JASPREET Perez Active SUPER B COMPLEX/VITAMIN C TABS 1 qd B COMPLEX-C 54567932418 Active JASPREET Perez Active TRILIPIX 135 MG CPDR 1 q hs CHOLINE FENOFIBRATE 56787201811 Active Tu Landeros MD Active FENOFIBRATE 145 MG TABS 1 po qd FENOFIBRATE 22803520733 No Longer Active JASPREET Perez Active OMEPRAZOLE 20 MG TBEC 1 PO 30 MIN BEFORE 1ST MEAL OMEPRAZOLE 92325954181 No Longer Active JASPREET Perez Active SIMVASTATIN 40 MG TABS Take one by mouth daily SIMVASTATIN 79592488612 No Longer Active JASPREET Perez Active GABAPENTIN 100 MG CAPS 1 po bid GABAPENTIN 65960497015 Active JASPREET Perez Active VENLAFAXINE HCL 37.5 MG TABS 1 bid VENLAFAXINE HCL 55427296347 Active JASPREET Perez Active VENLAFAXINE HCL 75 MG TABS 1 po BID VENLAFAXINE HCL 89660061195 No Longer Active JASPREET Perez Active HYDROCODONE-ACETAMINOPHEN 5-325 MG TABS 1 tab by mouth every 6 hours as needed for pain HYDROCODONE-ACETAMINOPHEN 14501895843 Active Tu Landeros MD Active METFORMIN HCL 500 MG TB24 1.5 po BID METFORMIN HCL 41834669351 Active uT Landeros MD Active CIPRO 500 MG TAB 1 tablet by mouth twice daily CIPROFLOXACIN HCL 96134422722 No Longer Active Tu Landeros MD Active VENLAFAXINE HCL 37.5 MG TABS 1 po BID VENLAFAXINE HCL 72663635921 No Longer Active Suze Corey RMA Active [employer] STOOL SOFTENER 100 MG CAPS 1 tab daily DOCUSATE SODIUM 70628554157 Active Tu Landeros MD Active LAMISIL 250 MG TAB 1 po qd TERBINAFINE HCL 36991858526 No Longer Active Tu Landeros MD Active LORTAB 5 5-500 MG TABS 1/2 to 1 tablet by mouth every 4 hours as needed for pain HYDROCODONE-ACETAMINOPHEN 33622642190 No Longer Active Tu Landeros MD Active ENALAPRIL MALEATE 20 MG TABS 1.5 po qd ENALAPRIL MALEATE 35591406333 Active Tu Landeros MD Active HYDROCODONE-ACETAMINOPHEN 5-500 MG TABS take one po Q 4-6 hours prn HYDROCODONE-ACETAMINOPHEN 34414470845 No Longer Active Tu Landeros MD Active BACTRIM DS 800-160 MG TABS 1 po BID x 7 days SULFAMETHOXAZOLE-TRIMETHOPRIM 70878439603 No Longer Active Tu Landeros MD Active VENLAFAXINE HCL 75 MG TABS 1 po BID VENLAFAXINE HCL 65214220647 No Longer Active Elvira Cervantes MD PhD Active TRAMADOL HCL 50 MG TABS 1 tablets every 6 hours as needed for pain TRAMADOL HCL 59061130752 No Longer Active Tu Landeros MD Active TRUERESULT BLOOD GLUCOSE W/DEVICE KIT use to test blood sugar tid dx: 250.00 BLOOD GLUCOSE MONITORING SUPPL 61862756000 Active Tu Landeros MD Active TRUETEST TEST STRP test blood sugar three times daily dx: 250.00 GLUCOSE BLOOD 52264970744 Active Tu Landeros MD Active ACCU-CHEK FASTCLIX LANCETS MISC Use to check bloodsugar three times daily as needed LANCETS 94428681091 No Longer Active Tu Landeros MD Active ACCU-CHEK KEYONA PLUS STRP Use for testing bloodsugars three times daily as needed GLUCOSE BLOOD 74375815238 No Longer Active Tu Landeros MD Active ACCU-CHEK KEYONA PLUS W/DEVICE KIT Use for testing bloodsugars three times daily as needed BLOOD GLUCOSE MONITORING SUPPL 74101179898 No Longer Active Tu Landeros MD Active SPIRONOLACTONE 25 MG TAB 0.5 tablet by mouth daily SPIRONOLACTONE 65365538803 No Longer Active Tu Landeros MD Active ALPRAZOLAM 0.5 MG TABS 1 tab every 6hrs as needed ALPRAZOLAM 21631220394 No Longer Active Tu Landeros MD Active B-12 100 MCG TABS Take one by mouth daily CYANOCOBALAMIN 99919770835 Active Tu Landeros MD Active AUGMENTIN 875-125 MG TAB 1 tab by mouth twice daily with food AMOXICILLIN-POT CLAVULANATE 37726291365 No Longer Active Tu Landeros MD Active PREDNISONE 20 MG TAB 2 tabs daily for 3 days, 1 tab daily for 3 days, 1/2 tab daily for 2 days PREDNISONE 82787679076 No Longer Active Tu Landeros MD Active XANAX 0.5 MG TABS 1 tablet every 6 hrs prn ALPRAZOLAM 92942460350 No Longer Active Tu Landeros MD Active PREDNISONE 20 MG TAB 2 tabs daily for 3 days, 1 tab daily for 3 days, 1/2 tab daily for 2 days PREDNISONE 48623535445 No Longer Active Tu Landeros MD Active TRIAMCINOLONE ACETONIDE 0.1 % OINT Apply to affected areas TID for up to 2 weeks TRIAMCINOLONE ACETONIDE 80783283016 No Longer Active Tu Landeros MD Active LORTAB 5 5-500 MG TABS 1/2 to 1 tablet by mouth every 4 hours as needed for pain HYDROCODONE-ACETAMINOPHEN 82988117415 No Longer Active Tu Landeros MD Active MULTIVITAMINS TABS Take one by mouth daily MULTIPLE VITAMIN 93901591159 No Longer Active Tu Landeros MD Active MELATONIN 5 MG TABS Take one by mouth daily MELATONIN 83082187548 No Longer Active Tu Landeros MD Active SOMA 350 MG TAB 1 po q 6 hours prn spasm CARISOPRODOL 98234994527 No Longer Active Tu Landeros MD Active MECLIZINE HCL 25 MG CHEW TAB 1 four times a day as needed for dizziness 08/05 MECLIZINE HCL 67942254827 No Longer Active Fab Morales DO Active ANGEL BREEZE 2 TEST DISK test tid prn GLUCOSE BLOOD 29424393534 No Longer Active Negra Scott RN Active DICLOFENAC SODIUM 50 MG TBEC 1 tablet by mouth three times a day as needed DICLOFENAC SODIUM 28030716990 Active Tu Landeros MD Active REGLAN 10 MG TAB 1 po TID PRN [place] METOCLOPRAMIDE HCL 71376938439 No Longer Active Tu Landeros MD Active METFORMIN HCL 500 MG TABS 1 PO BID METFORMIN HCL 48163682088 No Longer Active Tu Landeros MD Active AMBIEN 10 MG TAB 1 tab by mouth at bedtime as needed for sleep ZOLPIDEM TARTRATE 04757452158 No Longer Active Tu Landeros MD Active FLUOXETINE HCL 40 MG CAPS 1 po q day FLUOXETINE HCL 61020845311 No Longer Active Mayra Terry Active FISH OIL 1000 MG CAPS Take one by mouth daily OMEGA-3 FATTY ACIDS 41348374284 Active Tu Landeros MD Active GLUCOSAMINE 500 MG TABS Take 2 tab po qd GLUCOSAMINE 42368126831 Active Tu Landeros MD Active TRILIPIX 135 MG CPDR 1 po qd CHOLINE FENOFIBRATE 45117207613 No Longer Active Tu Landeros MD Active ASPIRIN 81 MG CHEW TAB 1 tablet by mouth daily ASPIRIN 62008952286 Active Tu Landeros MD Active FUROSEMIDE 40 MG TAB 1 tablet by mouth daily FUROSEMIDE 59294546422 Active Tu Landeros MD Active REQUIP 2 MG TABS Take one tablet at bedtime prn ROPINIROLE HCL 02545019260 Active Tu Landeros MD Active KLOR-CON 10 10 MEQ CR-TABS TAKE 2 TABS DAILY POTASSIUM CHLORIDE 53272195885 Active Tu Landeros MD Active AMBIEN 10 MG TAB 1 tab by mouth at bedtime as needed for sleep AMBIEN 10 MG TAB 569719 ZOLPIDEM TARTRATE Inactive METFORMIN HCL 500 MG TABS 1 PO BID METFORMIN HCL 500 MG TABS 974786 METFORMIN HCL Inactive REGLAN 10 MG TAB 1 po TID PRN Nausea REGLAN 10 MG TAB 329142 METOCLOPRAMIDE HCL Inactive MECLIZINE HCL 25 MG CHEW TAB 1 four times a day as needed for dizziness 08/05 MECLIZINE HCL 25 MG CHEW TAB 354812 MECLIZINE HCL Inactive SOMA 350 MG TAB 1 po q 6 hours prn spasm SOMA 350 MG TAB 693656 CARISOPRODOL Inactive MELATONIN 5 MG TABS Take one by mouth daily MELATONIN 5 MG TABS 021035 MELATONIN Inactive MULTIVITAMINS TABS Take one by mouth daily MULTIVITAMINS TABS MULTIPLE VITAMIN Inactive LORTAB 5 5-500 MG TABS 1/2 to 1 tablet by mouth every 4 hours as needed for pain LORTAB 5 5-500 MG TABS HYDROCODONE- ACETAMINOPHEN Inactive XANAX 0.5 MG TABS 1 tablet every 6 hrs prn XANAX 0.5 MG TABS 581787 ALPRAZOLAM Inactive AUGMENTIN 875-125 MG TAB 1 tab by mouth twice daily with food AUGMENTIN 875-125 MG TAB 943239 AMOXICILLIN-POT CLAVULANATE Inactive ALPRAZOLAM 0.5 MG TABS 1 tab every 6hrs as needed ALPRAZOLAM 0.5 MG TABS 114928 ALPRAZOLAM Inactive SPIRONOLACTONE 25 MG TAB 0.5 tablet by mouth daily SPIRONOLACTONE 25 MG TAB 483029 SPIRONOLACTONE Inactive ACCU-CHEK KEYONA PLUS W/DEVICE KIT Use for testing bloodsugars three times daily as needed ACCU-CHEK KEYONA PLUS W/DEVICE KIT BLOOD GLUCOSE MONITORING SUPPL Inactive ACCU-CHEK KEYONA PLUS STRP Use for testing bloodsugars three times daily as needed ACCU-CHEK KEYONA PLUS STRP GLUCOSE BLOOD Inactive ACCU-CHEK FASTCLIX LANCETS MISC Use to check bloodsugar three times daily as needed ACCU-CHEK FASTCLIX LANCETS MISC 32092374509 LANCETS Inactive TRAMADOL HCL 50 MG TABS 1 tablets every 6 hours as needed for pain TRAMADOL HCL 50 MG TABS 290196 TRAMADOL HCL Inactive VENLAFAXINE HCL 75 MG TABS 1 po BID VENLAFAXINE HCL 75 MG TABS 186198 VENLAFAXINE HCL Inactive HYDROCODONE-ACETAMINOPHEN 5-500 MG TABS take one po Q 4-6 hours prn HYDROCODONE-ACETAMINOPHEN 5-500 MG TABS HYDROCODONE- ACETAMINOPHEN Inactive LORTAB 5 5-500 MG TABS 1/2 to 1 tablet by mouth every 4 hours as needed for pain LORTAB 5 5-500 MG TABS HYDROCODONE- ACETAMINOPHEN Inactive LAMISIL 250 MG TAB 1 po qd LAMISIL 250 MG TAB 633987 TERBINAFINE HCL Inactive VENLAFAXINE HCL 37.5 MG TABS 1 po BID VENLAFAXINE HCL 37.5 MG TABS 043969 VENLAFAXINE HCL Inactive CIPRO 500 MG TAB 1 tablet by mouth twice daily CIPRO 500 MG TAB 056988 CIPROFLOXACIN HCL Inactive VENLAFAXINE HCL 75 MG TABS 1 po BID VENLAFAXINE HCL 75 MG TABS 156041 VENLAFAXINE HCL Inactive SIMVASTATIN 40 MG TABS Take one by mouth daily SIMVASTATIN 40 MG TABS 074475 SIMVASTATIN Inactive OMEPRAZOLE 20 MG TBEC 1 PO 30 MIN BEFORE 1ST MEAL OMEPRAZOLE 20 MG TBEC 404654 OMEPRAZOLE Inactive FENOFIBRATE 145 MG TABS 1 po qd FENOFIBRATE 145 MG TABS 339947 FENOFIBRATE Inactive TRIAMCINOLONE ACETONIDE 0.1 % OINT Apply to affected areas TID for up to 2 weeks TRIAMCINOLONE ACETONIDE 0.1 % OINT 6182649 TRIAMCINOLONE ACETONIDE Inactive PREDNISONE 20 MG TAB 2 tabs daily for 3 days, 1 tab daily for 3 days, 1/2 tab daily for 2 days PREDNISONE 20 MG TAB 562311 PREDNISONE Inactive PREDNISONE 20 MG TAB 2 tabs daily for 3 days, 1 tab daily for 3 days, 1/2 tab daily for 2 days PREDNISONE 20 MG TAB 455844 PREDNISONE Inactive BACTRIM DS 800-160 MG TABS 1 po BID x 7 days BACTRIM DS 800-160 MG TABS SULFAMETHOXAZOLE-TRIMETHOPRIM Inactive Immunizations Vaccine Administration Date Value Standard Description Seasonal influenza vaccine, injectable, containing preservative, for > 3 years old (Afluria, FluLaval, Fluzone, Fluvirin, Fluarix, Agriflu(>=18 yo)) Fluzone (>3 yrs.) [[id number]] Influenza, seasonal, injectable influenza immunization (Flu Vax) has been administered 02/22/2012 influenza virus vaccine, unspecified formulation Seasonal influenza vaccine, injectable, containing preservative, for > 3 years old (Afluria, FluLaval, Fluzone, Fluvirin, Fluarix, Agriflu(>=18 yo)) Fluzone (>3 yrs.) [[id number]] Influenza, seasonal, injectable Vital Signs Date Name Value Unit Range Description blood pressure, diastolic - 8462-4 80 mm[Hg] [...] E&M - 3141-9 305.25 [lb_av] Weight Measured blood pressure, diastolic - 8462-4 81 mm[Hg] BP ac blood pressure, systolic - 8480-6 115 mm[Hg] BP sys height E&M - 8302-2 62.5 [in_us] Bdy height pulse rate E&M - 8867-4 74 /min Heart rate temperature E&M 96.5 [degF] Body temperature weight E&M - 3141-9 312.13 [lb_av] Weight Measured blood pressure, diastolic - 8462-4 79 mm[Hg] BP ac blood pressure, systolic - 8480-6 143 mm[Hg] BP sys height E&M - 8302-2 62.5 [in_us] Bdy height pulse rate E&M - 8867-4 76 /min Heart rate temperature E&M 96.8 [degF] Body temperature weight E&M - 3141-9 311.31 [lb_av] Weight Measured blood pressure, diastolic - 8462-4 71 mm[Hg] BP ac blood pressure, systolic - 8480-6 145 mm[Hg] BP sys pulse rate E&M - 8867-4 67 /min Heart rate temperature E&M 97.1 [degF] Body temperature weight E&M - 3141-9 312.50 [lb_av] Weight Measured Diagnostic Results Date Name Value Unit Range Description Lab Report: Basic Metabolic Panel - Chemistry sodium, serum 139 mmol/L 272-891 9938/11/27 potassium, serum 4.9 mmol/L 3.5-5.2 chloride, serum 104 mmol/L 98-107 carbon dioxide, venous blood 29.9 mmol/L 21.0-32.0 blood glucose 128 mg/dL 65-110 calcium, serum 9.6 mg/dL 8.5-10.1 urea nitrogen, blood 30 mg/dL 7-18 creatinine, serum 1.50 mg/dL 0.60-1.30 Lab Report: CBC W/ DIFF, CMP, TSH, PREALBUMIN - Chemistry thyroid stimulating hormone, serum 0.38 u[iU]/mL sodium, serum 141 mmol/L potassium, serum 3.9 mmol/L chloride, serum 104 mmol/L carbon dioxide, venous blood 28 mmol/L urea nitrogen, blood 13 mg/dL blood glucose 98 mg/dL creatinine, serum 1.20 mg/dL aspartate aminotransferase (SGOT), serum 29 U/L alanine aminotransferase (SGPT), serum 35 U/L bilirubin, serum, total 0.4 mg/dL alkaline phosphatase, serum 57 U/L calcium, serum 9.3 mg/dL Lab Report: CBC W/ DIFF, CMP, TSH, PREALBUMIN - Hematology leukocyte count, blood 7.9 10*3/mm3 erythrocyte (RBC) count 4.10 10*6/mm3 hemoglobin, blood 12.3 g/dL hematocrit, blood 37.9 % mean corpuscular volume, RBC 92 fL mean corpuscular hemoglobin, RBC 30.1 pg red blood cell distribution width 11.5 % platelet count 298 10*3/mm3 Lab Report: Comp. Metabolic Panel - Chemistry sodium, serum 139 mmol/L 659-615 4938/11/22 potassium, serum 4.3 mmol/L 3.5-5.2 chloride, serum 103 mmol/L 98-107 carbon dioxide, venous blood 28.3 mmol/L 21.0-32.0 blood glucose 125 mg/dL 65-110 urea nitrogen, blood 27 mg/dL 7-18 creatinine, serum 1.60 mg/dL 0.60-1.30 alanine aminotransferase (SGPT), serum 35 U/L 12-78 aspartate aminotransferase (SGOT), serum 25 U/L 15-37 alkaline phosphatase, serum 89 U/L 50-136 calcium, serum 9.2 mg/dL 8.5-10.1 bilirubin, serum, total 0.20 mg/dL 0.00-1.00 Lab Report: Comp. Metabolic Panel, Lipid Panel, HGBA1C - Chemistry sodium, serum 142 mmol/L 677-385 2429/10/22 potassium, serum 4.9 mmol/L 3.5-5.2 chloride, serum 105 mmol/L 98-107 carbon dioxide, venous blood 31.8 mmol/L 21.0-32.0 blood glucose 104 mg/dL 65-110 urea nitrogen, blood 25 mg/dL 7-18 creatinine, serum 1.30 mg/dL 0.60-1.30 alanine aminotransferase (SGPT), serum 36 U/L 12-78 aspartate aminotransferase (SGOT), serum 24 U/L 15-37 alkaline phosphatase, serum 86 U/L 50-136 calcium, serum 9.0 mg/dL 8.5-10.1 bilirubin, serum, total 0.30 mg/dL 0.00-1.00 cholesterol, serum 139 mg/dL 710-424 4110/10/22 triglyceride, serum, fasting 168 mg/dL 30-200 HDL cholesterol, serum 40 mg/dL 32-96 LDL cholesterol, serum 65 mg/dL 0-130 hemoglobin A1C, blood, as % of total hemoglobin 6.2 % 4.3-6.0 sodium, serum 144 mmol/L 506-970 2825/04/16 potassium, serum 4.2 mmol/L 3.5-5.2 chloride, serum [...] 0.20 mg/dL 0.00-1.00 cholesterol, serum 133 mg/dL 259-891 8907/04/16 triglyceride, serum, fasting 142 mg/dL 30-200 HDL cholesterol, serum 38 mg/dL 32-96 LDL cholesterol, serum 67 mg/dL 0-130 hemoglobin A1C, blood, as % of total hemoglobin 7.1 % 4.3-6.0 Lab Report: MICROALBUMIN - Chemistry albumin/creatinine ratio, urine < 30 mg/g mg/g{creat} 0-29 Lab Report: MICROALBUMIN - Lab microalbumin, urine 10 0-19 Office Visit: 3 month f/u 302 - Chemistry cholesterol, target level 200 mg/dL triglyceride, target level 200 mg/dL HDL cholesterol, serum, target level 35 mg/dL LDL target level 100 mg/dL Office Visit: Consult for Abdominal Wounds - Chemistry cholesterol, target level 200 mg/dL triglyceride, target level 200 mg/dL HDL cholesterol, serum, target level 35 mg/dL LDL target level 100 mg/dL Encounters Code Encounter Date Provider Facility CPT-95257 Level 4 Est. Patient 09:45:25 CDT Tu Landeros MD [facility] CPT-16789 Level 4 Est. Patient 09:05:20 FLEXIBLE BABYSITTER Tu Landeros MD [facility] CPT-22296 Level 4 Est. Patient 14:09:06 CDT Tu Landeros MD [facility] CPT-19957 Level 3 Est. Patient 13:36:54 CDT Tu Landeros MD [facility] CPT-89595 Level 3 Est. Patient 08:59:14 CDT Tu Landeros MD [facility] CPT-37433 Level 3 Est. Patient 13:48:35 CDT Fab Morales DO [facility] CPT-04658 Level 4 Est. Patient 10:05:48 CDT Tu Landeros MD [facility] CPT-24834 Level 3 Est. Patient 13:38:42 CDT Marek BANKS [facility] CPT-02349 Level 5 Est. Patient 08:08:39 CDT Jerrica FRANCIS [facility] CPT-24095 Level 4 Est. Patient 14:23:38 CDT Tu Landeros MD [facility] CPT-80279 Level 3 Est. Patient 11:44:04 CDT Tu Landeros MD [facility] CPT-41542 Level 3 Est. Patient 11:03:20 FLEXIBLE BABYSITTER Tu Landeros MD [facility] CPT-12991 Level 3 Est. Patient 11:03:14 FLEXIBLE BABYSITTER Tu Landeros MD [facility] CPT-79235 Level 3 Est. Patient 12:42:49 CDT Tu Landeros MD [facility] CPT-11231 Level 3 Est. Patient 11:52:06 CDT Tu Landeros MD [facility] CPT-90340 Level 3 Est. Patient 13:58:11 CDT Tu Landeros MD [facility] CPT-64227 Level 3 Est. Patient 17:50:07 CDT Fab Morales DO [facility] CPT-81977 Level 3 Est. Patient 12:06:29 CDT Elvira Cervantes MD [facility] CPT-18233 Level 3 Est. Patient 15:50:32 CDT Tu Landeros MD [facility] CPT-47359 Level 4 Est. Patient 16:08:29 CDT Tu Landeros MD [facility] CPT-92999 Level 3 Est. Patient 16:04:19 CDT Tu Landeros MD [facility] CPT-05115 Level 3 Est. Patient 11:22:30 FLEXIBLE BABYSITTER Tu Landeros MD [facility] CPT-77680 Level 4 Est. Patient 16:24:02 FLEXIBLE BABYSITTER Tu Landeros MD [facility] CPT-69298 Level 3 Est. Patient 17:21:23 FLEXIBLE BABYSITTER Tu Landeros MD [facility] Procedures Code Procedure Name Date Entry Date Standard Description CPT-OV Office Visit 15:45:11 CDT CPT-000 Give Zostavax 14:09:06 CDT CPT-91538 Administration single or combination vaccine inc oral 15 :19:04 CDT CPT-92968 Zoster Vaccine (Zostavax) 15:19:04 CDT CPT-71258 Administration single or combination vaccine inc oral 20 :51:03 CDT CPT-88996 Influenza split virus > age 3 20:51:03 CDT CPT-84228 No Charge Offi Visit 14:52:03 CDT CPT-OV Office Visit 14:57:43 CDT CPT-OV Office Visit 15:22:32 CDT CPT-91547 Administration single or combination vaccine inc oral 11 :33:15 CDT CPT-04928 Influenza split virus > age 3 11:33:15 CDT
--- OUTSIDE RECORDS SUMMARY | 2018-04-25 19:10 | XMS REPORT | Clinical Summary ---
[...] Comment Standard Description Annotate DEPRESSION 311 Active uT Landeros MD Depressive disorder, [...] 12.5 MG TABS 1 po BID CARVEDILOL 16604812041 Active Tu Landeros MD Active CIPRO 500 MG TABS 1 bid x 14 days start 09-28-13 CIPROFLOXACIN HCL 77569836660 Active JASPREET Perez Active ALIGN 4 MG CAPS 1 tid PROBIOTIC PRODUCT 51241922729 Active JASPREET Perez Active BACTRIM DS 800-160 MG TABS 1 bid x 14 day start 09-28-13 SULFAMETHOXAZOLE-TRIMETHOPRIM 24955106483 Active JASPREET Perez Active GABAPENTIN 300 MG CAPS 1 tid GABAPENTIN 50915007545 Active JASPREET Perez Active SUPER B COMPLEX/VITAMIN C TABS 1 qd B COMPLEX-C 25675224102 Active JASPREET Perez Active TRILIPIX 135 MG CPDR 1 q hs CHOLINE FENOFIBRATE 19035640609 Active Tu Landeros MD Active FENOFIBRATE 145 MG TABS 1 po qd FENOFIBRATE 94340824705 No Longer Active JASPREET Perez Active OMEPRAZOLE 20 MG TBEC 1 PO 30 MIN BEFORE 1ST MEAL OMEPRAZOLE 24054354207 No Longer Active JASPREET Perez Active SIMVASTATIN 40 MG TABS Take one by mouth daily SIMVASTATIN 98326584383 No Longer Active JASPREET Perez Active GABAPENTIN 100 MG CAPS 1 po bid GABAPENTIN 58858810577 Active JASPREET Perez Active VENLAFAXINE HCL 37.5 MG TABS 1 bid VENLAFAXINE HCL 14878691359 Active JASPREET Perez Active VENLAFAXINE HCL 75 MG TABS 1 po BID VENLAFAXINE HCL 62707531541 No Longer Active JASPREET Perez Active HYDROCODONE-ACETAMINOPHEN 5-325 MG TABS 1 tab by mouth every 6 hours as needed for pain HYDROCODONE-ACETAMINOPHEN 87855908028 Active Tu Landeros MD Active METFORMIN HCL 500 MG TB24 1.5 po BID METFORMIN HCL 33231440906 Active Tu Landeros MD Active CIPRO 500 MG TAB 1 tablet by mouth twice daily CIPROFLOXACIN HCL 22047028760 No Longer Active Tu Landeros MD Active VENLAFAXINE HCL 37.5 MG TABS 1 po BID VENLAFAXINE HCL 73365556469 No Longer Active Suze Corey RMA Active [employer] STOOL SOFTENER 100 MG CAPS 1 tab daily DOCUSATE SODIUM 22017574995 Active Tu Landeros MD Active LAMISIL 250 MG TAB 1 po qd TERBINAFINE HCL 41676379996 No Longer Active Tu Landeros MD Active LORTAB 5 5-500 MG TABS 1/2 to 1 tablet by mouth every 4 hours as needed for pain HYDROCODONE-ACETAMINOPHEN 56384130036 No Longer Active Tu Landeros MD Active ENALAPRIL MALEATE 20 MG TABS 1.5 po qd ENALAPRIL MALEATE 80765685477 Active Tu Landeros MD Active HYDROCODONE-ACETAMINOPHEN 5-500 MG TABS take one po Q 4-6 hours prn HYDROCODONE-ACETAMINOPHEN 07852662724 No Longer Active Tu Landeros MD Active BACTRIM DS 800-160 MG TABS 1 po BID x 7 days SULFAMETHOXAZOLE-TRIMETHOPRIM 96106226920 No Longer Active Tu Landeros MD Active VENLAFAXINE HCL 75 MG TABS 1 po BID VENLAFAXINE HCL 26612972216 No Longer Active Elvira Cervantes MD PhD Active TRAMADOL HCL 50 MG TABS 1 tablets every 6 hours as needed for pain TRAMADOL HCL 70394789636 No Longer Active Tu Landeros MD Active TRUERESULT BLOOD GLUCOSE W/DEVICE KIT use to test blood sugar tid dx: 250.00 BLOOD GLUCOSE MONITORING SUPPL 74438511117 Active Tu Landeros MD Active TRUETEST TEST STRP test blood sugar three times daily dx: 250.00 GLUCOSE BLOOD 10343122591 Active Tu Landeros MD Active ACCU-CHEK FASTCLIX LANCETS MISC Use to check bloodsugar three times daily as needed LANCETS 52461221491 No Longer Active Tu Landeros MD Active ACCU-CHEK KEYONA PLUS STRP Use for testing bloodsugars three times daily as needed GLUCOSE BLOOD 83265062274 No Longer Active Tu Landeros MD Active ACCU-CHEK KEYONA PLUS W/DEVICE KIT Use for testing bloodsugars three times daily as needed BLOOD GLUCOSE MONITORING SUPPL 87823574765 No Longer Active Tu Landeros MD Active SPIRONOLACTONE 25 MG TAB 0.5 tablet by mouth daily SPIRONOLACTONE 00844035524 No Longer Active Tu Landeros MD Active ALPRAZOLAM 0.5 MG TABS 1 tab every 6hrs as needed ALPRAZOLAM 61522549550 No Longer Active Tu Landeros MD Active B-12 100 MCG TABS Take one by mouth daily CYANOCOBALAMIN 57622164710 Active Tu Landeros MD Active AUGMENTIN 875-125 MG TAB 1 tab by mouth twice daily with food AMOXICILLIN-POT CLAVULANATE 89190788460 No Longer Active Tu Landeros MD Active PREDNISONE 20 MG TAB 2 tabs daily for 3 days, 1 tab daily for 3 days, 1/2 tab daily for 2 days PREDNISONE 94824049536 No Longer Active Tu Landeros MD Active XANAX 0.5 MG TABS 1 tablet every 6 hrs prn ALPRAZOLAM 00702658598 No Longer Active Tu Landeros MD Active PREDNISONE 20 MG TAB 2 tabs daily for 3 days, 1 tab daily for 3 days, 1/2 tab daily for 2 days PREDNISONE 28907860832 No Longer Active Tu Landeros MD Active TRIAMCINOLONE ACETONIDE 0.1 % OINT Apply to affected areas TID for up to 2 weeks TRIAMCINOLONE ACETONIDE 66857039397 No Longer Active Tu Landeros MD Active LORTAB 5 5-500 MG TABS 1/2 to 1 tablet by mouth every 4 hours as needed for pain HYDROCODONE-ACETAMINOPHEN 20506443968 No Longer Active Tu Landeros MD Active MULTIVITAMINS TABS Take one by mouth daily MULTIPLE VITAMIN 58836545378 No Longer Active Tu Landeros MD Active MELATONIN 5 MG TABS Take one by mouth daily MELATONIN 87950154778 No Longer Active Tu Landeros MD Active SOMA 350 MG TAB 1 po q 6 hours prn spasm CARISOPRODOL 77451284975 No Longer Active Tu Landeros MD Active MECLIZINE HCL 25 MG CHEW TAB 1 four times a day as needed for dizziness 08/05 MECLIZINE HCL 66660484272 No Longer Active Fab Morales DO Active ANGEL BREEZE 2 TEST DISK test tid prn GLUCOSE BLOOD 10315261752 No Longer Active Negra Scott RN Active DICLOFENAC SODIUM 50 MG TBEC 1 tablet by mouth three times a day as needed DICLOFENAC SODIUM 96317800252 Active Tu Landeros MD Active REGLAN 10 MG TAB 1 po TID PRN [place] METOCLOPRAMIDE HCL 59731408947 No Longer Active Tu Landeros MD Active METFORMIN HCL 500 MG TABS 1 PO BID METFORMIN HCL 12835696236 No Longer Active Tu Landeros MD Active AMBIEN 10 MG TAB 1 tab by mouth at bedtime as needed for sleep ZOLPIDEM TARTRATE 35531466414 No Longer Active Tu Landeros MD Active FLUOXETINE HCL 40 MG CAPS 1 po q day FLUOXETINE HCL 22037389918 No Longer Active Mayra Terry Active FISH OIL 1000 MG CAPS Take one by mouth daily OMEGA-3 FATTY ACIDS 43376444877 Active Tu Landeros MD Active GLUCOSAMINE 500 MG TABS Take 2 tab po qd GLUCOSAMINE 36665800915 Active Tu Landeros MD Active TRILIPIX 135 MG CPDR 1 po qd CHOLINE FENOFIBRATE 79123245114 No Longer Active Tu Landeros MD Active ASPIRIN 81 MG CHEW TAB 1 tablet by mouth daily ASPIRIN 73369494060 Active Tu Landeros MD Active FUROSEMIDE 40 MG TAB 1 tablet by mouth daily FUROSEMIDE 02755556597 Active Tu Landeros MD Active REQUIP 2 MG TABS Take one tablet at bedtime prn ROPINIROLE HCL 82983445139 Active Tu Landeros MD Active KLOR-CON 10 10 MEQ CR-TABS TAKE 2 TABS DAILY POTASSIUM CHLORIDE 85625431367 Active Tu Landeros MD Active AMBIEN 10 MG TAB 1 tab by mouth at bedtime as needed for sleep AMBIEN 10 MG TAB 591933 ZOLPIDEM TARTRATE Inactive METFORMIN HCL 500 MG TABS 1 PO BID METFORMIN HCL 500 MG TABS 736441 METFORMIN HCL Inactive REGLAN 10 MG TAB 1 po TID PRN Nausea REGLAN 10 MG TAB 385204 METOCLOPRAMIDE HCL Inactive MECLIZINE HCL 25 MG CHEW TAB 1 four times a day as needed for dizziness 08/05 MECLIZINE HCL 25 MG CHEW TAB 333828 MECLIZINE HCL Inactive SOMA 350 MG TAB 1 po q 6 hours prn spasm SOMA 350 MG TAB 618632 CARISOPRODOL Inactive MELATONIN 5 MG TABS Take one by mouth daily MELATONIN 5 MG TABS 303987 MELATONIN Inactive MULTIVITAMINS TABS Take one by mouth daily MULTIVITAMINS TABS MULTIPLE VITAMIN Inactive LORTAB 5 5-500 MG TABS 1/2 to 1 tablet by mouth every 4 hours as needed for pain LORTAB 5 5-500 MG TABS HYDROCODONE- ACETAMINOPHEN Inactive XANAX 0.5 MG TABS 1 tablet every 6 hrs prn XANAX 0.5 MG TABS 235776 ALPRAZOLAM Inactive AUGMENTIN 875-125 MG TAB 1 tab by mouth twice daily with food AUGMENTIN 875-125 MG TAB 770062 AMOXICILLIN-POT CLAVULANATE Inactive ALPRAZOLAM 0.5 MG TABS 1 tab every 6hrs as needed ALPRAZOLAM 0.5 MG TABS 795432 ALPRAZOLAM Inactive SPIRONOLACTONE 25 MG TAB 0.5 tablet by mouth daily SPIRONOLACTONE 25 MG TAB 671228 SPIRONOLACTONE Inactive ACCU-CHEK KEYONA PLUS W/DEVICE KIT Use for testing bloodsugars three times daily as needed ACCU-CHEK KEYONA PLUS W/DEVICE KIT BLOOD GLUCOSE MONITORING SUPPL Inactive ACCU-CHEK KEYONA PLUS STRP Use for testing bloodsugars three times daily as needed ACCU-CHEK KEYONA PLUS STRP GLUCOSE BLOOD Inactive ACCU-CHEK FASTCLIX LANCETS MISC Use to check bloodsugar three times daily as needed ACCU-CHEK FASTCLIX LANCETS MISC 62750052765 LANCETS Inactive TRAMADOL HCL 50 MG TABS 1 tablets every 6 hours as needed for pain TRAMADOL HCL 50 MG TABS 322397 TRAMADOL HCL Inactive VENLAFAXINE HCL 75 MG TABS 1 po BID VENLAFAXINE HCL 75 MG TABS 505808 VENLAFAXINE HCL Inactive HYDROCODONE-ACETAMINOPHEN 5-500 MG TABS take one po Q 4-6 hours prn HYDROCODONE-ACETAMINOPHEN 5-500 MG TABS HYDROCODONE- ACETAMINOPHEN Inactive LORTAB 5 5-500 MG TABS 1/2 to 1 tablet by mouth every 4 hours as needed for pain LORTAB 5 5-500 MG TABS HYDROCODONE- ACETAMINOPHEN Inactive LAMISIL 250 MG TAB 1 po qd LAMISIL 250 MG TAB 724066 TERBINAFINE HCL Inactive VENLAFAXINE HCL 37.5 MG TABS 1 po BID VENLAFAXINE HCL 37.5 MG TABS 086537 VENLAFAXINE HCL Inactive CIPRO 500 MG TAB 1 tablet by mouth twice daily CIPRO 500 MG TAB 848008 CIPROFLOXACIN HCL Inactive VENLAFAXINE HCL 75 MG TABS 1 po BID VENLAFAXINE HCL 75 MG TABS 271499 VENLAFAXINE HCL Inactive SIMVASTATIN 40 MG TABS Take one by mouth daily SIMVASTATIN 40 MG TABS 860563 SIMVASTATIN Inactive OMEPRAZOLE 20 MG TBEC 1 PO 30 MIN BEFORE 1ST MEAL OMEPRAZOLE 20 MG TBEC 829103 OMEPRAZOLE Inactive FENOFIBRATE 145 MG TABS 1 po qd FENOFIBRATE 145 MG TABS 832782 FENOFIBRATE Inactive TRIAMCINOLONE ACETONIDE 0.1 % OINT Apply to affected areas TID for up to 2 weeks TRIAMCINOLONE ACETONIDE 0.1 % OINT 0691152 TRIAMCINOLONE ACETONIDE Inactive PREDNISONE 20 MG TAB 2 tabs daily for 3 days, 1 tab daily for 3 days, 1/2 tab daily for 2 days PREDNISONE 20 MG TAB 565087 PREDNISONE Inactive PREDNISONE 20 MG TAB 2 tabs daily for 3 days, 1 tab daily for 3 days, 1/2 tab daily for 2 days PREDNISONE 20 MG TAB 355990 PREDNISONE Inactive BACTRIM DS 800-160 MG TABS 1 po BID x 7 days BACTRIM DS 800-160 MG TABS SULFAMETHOXAZOLE-TRIMETHOPRIM Inactive Immunizations Vaccine Administration Date Value Standard Description Seasonal influenza vaccine, injectable, containing preservative, for > 3 years old (Afluria, FluLaval, Fluzone, Fluvirin, Fluarix, Agriflu(>=18 yo)) Fluzone (>3 yrs.) [[id number]] Influenza, seasonal, injectable influenza immunization (Flu Vax) has been administered 02/22/2012 influenza virus vaccine, unspecified formulation Seasonal influenza vaccine, injectable, containing preservative, for > 3 years old (Afluria, FluLaval, Fluzone, Fluvirin, Fluarix, Agriflu(>=18 yo)) Fluzone (>3 yrs.) [[id number]] Influenza, seasonal, injectable Vital Signs Date Name [...] E&M - 3141-9 312.50 [lb_av] Weight Measured blood pressure, diastolic - 8462-4 76 mm[Hg] BP ac blood pressure, systolic - 8480-6 157 mm[Hg] BP sys pulse rate E&M - 8867-4 73 /min Heart rate temperature E&M 96.2 [degF] Body temperature weight E&M - 3141-9 314.50 [lb_av] Weight Measured Diagnostic Results Date Name Value Unit Range Description Lab Report: Basic Metabolic Panel - Chemistry sodium, serum 139 mmol/L 501-623 3618/11/27 potassium, serum 4.9 mmol/L 3.5-5.2 chloride, serum [...] Panel - Chemistry sodium, serum 139 mmol/L 059-607 8547/11/22 potassium, serum 4.3 mmol/L 3.5-5.2 chloride, serum [...] HGBA1C - Chemistry sodium, serum 142 mmol/L 682-930 2136/10/22 potassium, serum 4.9 mmol/L 3.5-5.2 chloride, serum [...] 0.30 mg/dL 0.00-1.00 cholesterol, serum 139 mg/dL 110-893 3456/10/22 triglyceride, serum, fasting 168 mg/dL 30-200 HDL cholesterol, serum 40 mg/dL 32-96 LDL cholesterol, serum 65 mg/dL 0-130 hemoglobin A1C, blood, as % of total hemoglobin 6.2 % 4.3-6.0 sodium, serum 144 mmol/L 318-673 8619/04/16 potassium, serum 4.2 mmol/L 3.5-5.2 chloride, serum [...] 0.20 mg/dL 0.00-1.00 cholesterol, serum 133 mg/dL 605-752 3501/04/16 triglyceride, serum, fasting 142 mg/dL 30-200 HDL [...] mg/dL Encounters Code Encounter Date Provider Facility CPT-23626 Level 4 Est. Patient 09:45:25 CDT Tu Landeros MD [facility] CPT-55139 Level 4 Est. Patient 09:05:[address] Tu Landeros MD [facility] CPT-83972 Level 4 Est. Patient 14:09:06 CDT Tu Landeros MD [facility] CPT-72635 Level 3 Est. Patient 13:36:54 CDT Tu Landeros MD [facility] CPT-67589 Level 3 Est. Patient 08:59:14 CDT Tu Landeros MD [facility] CPT-70366 Level 3 Est. Patient 13:48:35 CDT Fab Morales DO [facility] CPT-75184 Level 4 Est. Patient 10:05:48 CDT Tu Landeros MD [facility] CPT-14690 Level 3 Est. Patient 13:38:42 CDT Marek BANKS [facility] CPT-05888 Level 5 Est. Patient 08:08:39 CDT Jerrica FRANCIS [facility] CPT-19823 Level 4 Est. Patient 14:23:38 CDT Tu Landeros MD [facility] CPT-14132 Level 3 Est. Patient 11:44:04 CDT Tu Landeros MD [facility] CPT-29472 Level 3 Est. Patient 11:03:[address] Tu Landeros MD [facility] CPT-49345 Level 3 Est. Patient 11:03:[address] Tu Landeros MD [facility] CPT-50982 Level 3 Est. Patient 12:42:49 CDT Tu Landeros MD [facility] CPT-21840 Level 3 Est. Patient 11:52:06 CDT Tu Landeros MD [facility] CPT-49021 Level 3 Est. Patient 13:58:11 CDT Tu Landeros MD [facility] CPT-42766 Level 3 Est. Patient 17:50:07 CDT Fab Morales DO [facility] CPT-14889 Level 3 Est. Patient 12:06:29 CDT Elvira Cervantes MD PhD [facility] CPT-75850 Level 3 Est. Patient 15:50:32 CDT Tu Landeros MD [facility] CPT-91806 Level 4 Est. Patient 16:08:29 CDT Tu Landeros MD [facility] CPT-75443 Level 3 Est. Patient 16:04:19 CDT Tu Landeros MD [facility] CPT-26667 Level 3 Est. Patient 11:22:[address] Tu Landeros MD [facility] CPT-65453 Level 4 Est. Patient 16:24:[address] Tu Landeros MD [facility] CPT-68102 Level 3 Est. Patient 17:21:[address] Tu Landeros MD [facility] Procedures Code Procedure Name Date Entry Date Standard Description CPT-OV Office Visit 15:45:11 CDT CPT-000 Give Zostavax 14:09:06 CDT CPT-99132 Administration single or combination vaccine inc oral 15 :19:04 CDT CPT-61607 Zoster Vaccine (Zostavax) 15:19:04 CDT CPT-06857 Administration single or combination vaccine inc oral 20 :51:03 CDT CPT-05298 Influenza split virus > age 3 20:51:03 CDT CPT-84616 No Charge Offi Visit 14:52:03 CDT CPT-OV Office Visit 14:57:43 CDT CPT-OV Office Visit 15:22:32 CDT CPT-40520 Administration single or combination vaccine inc oral 11 :33:15 CDT CPT-41185 Influenza split virus > age 3 11:33:15 CDT
--- OUTSIDE RECORDS SUMMARY | 2018-04-25 19:12 | XMS REPORT | Clinical Summary ---
Author Author Admin, SACHI Clemons [facility] Address Unknown Phone Unavailable Allergies, [...] 12.5 MG TABS 1 po BID CARVEDILOL 13781365892 Active Tu Landeros MD Active CIPRO 500 MG TABS 1 bid x 14 days start 09-28-13 CIPROFLOXACIN HCL 53305757553 Active JASPREET Perez Active ALIGN 4 MG CAPS 1 tid PROBIOTIC PRODUCT 11847825813 Active JASPREET Perez Active BACTRIM DS 800-160 MG TABS 1 bid x 14 day start 09-28-13 SULFAMETHOXAZOLE-TRIMETHOPRIM 83690080973 Active JASPREET Perez Active GABAPENTIN 300 MG CAPS 1 tid GABAPENTIN 96993255303 Active JASPREET Perez Active SUPER B COMPLEX/VITAMIN C TABS 1 qd B COMPLEX-C 29036976472 Active JASPREET Perez Active TRILIPIX 135 MG CPDR 1 q hs CHOLINE FENOFIBRATE 81671125222 Active Tu Landeros MD Active FENOFIBRATE 145 MG TABS 1 po qd FENOFIBRATE 04086065560 No Longer Active JASPREET ePrez Active OMEPRAZOLE 20 MG TBEC 1 PO 30 MIN BEFORE 1ST MEAL OMEPRAZOLE 41600194837 No Longer Active JASPREET Perez Active SIMVASTATIN 40 MG TABS Take one by mouth daily SIMVASTATIN 68658155529 No Longer Active JASPREET Perez Active GABAPENTIN 100 MG CAPS 1 po bid GABAPENTIN 34602154095 Active JASPREET Perez Active VENLAFAXINE HCL 37.5 MG TABS 1 bid VENLAFAXINE HCL 10243458372 Active JASPREET Perez Active VENLAFAXINE HCL 75 MG TABS 1 po BID VENLAFAXINE HCL 09430586286 No Longer Active JASPREET Perez Active HYDROCODONE-ACETAMINOPHEN 5-325 MG TABS 1 tab by mouth every 6 hours as needed for pain HYDROCODONE-ACETAMINOPHEN 40487173909 Active Tu Landeros MD Active METFORMIN HCL 500 MG TB24 1.5 po BID METFORMIN HCL 63280239818 Active Tu Landeros MD Active CIPRO 500 MG TAB 1 tablet by mouth twice daily CIPROFLOXACIN HCL 83578277455 No Longer Active Tu Landeros MD Active VENLAFAXINE HCL 37.5 MG TABS 1 po BID VENLAFAXINE HCL 48406002812 No Longer Active Suze Corey RMA Active [employer]S STOOL SOFTENER 100 MG CAPS 1 tab daily DOCUSATE SODIUM 45465235445 Active Tu Landeros MD Active LAMISIL 250 MG TAB 1 po qd TERBINAFINE HCL 21138078151 No Longer Active Tu Landeros MD Active LORTAB 5 5-500 MG TABS 1/2 to 1 tablet by mouth every 4 hours as needed for pain HYDROCODONE-ACETAMINOPHEN 37991529473 No Longer Active Tu Landeros MD Active ENALAPRIL MALEATE 20 MG TABS 1.5 po qd ENALAPRIL MALEATE 30573800922 Active Tu Landeros MD Active HYDROCODONE-ACETAMINOPHEN 5-500 MG TABS take one po Q 4-6 hours prn HYDROCODONE-ACETAMINOPHEN 80210977097 No Longer Active Tu Landeros MD Active BACTRIM DS 800-160 MG TABS 1 po BID x 7 days SULFAMETHOXAZOLE-TRIMETHOPRIM 47518975469 No Longer Active Tu Landeros MD Active VENLAFAXINE HCL 75 MG TABS 1 po BID VENLAFAXINE HCL 04931006804 No Longer Active Elvira Cervantes MD PhD Active TRAMADOL HCL 50 MG TABS 1 tablets every 6 hours as needed for pain TRAMADOL HCL 56117937452 No Longer Active Tu Landeros MD Active TRUERESULT BLOOD GLUCOSE W/DEVICE KIT use to test blood sugar tid dx: 250.00 BLOOD GLUCOSE MONITORING SUPPL 92198513287 Active Tu Landeros MD Active TRUETEST TEST STRP test blood sugar three times daily dx: 250.00 GLUCOSE BLOOD 81358037347 Active Tu Landeros MD Active ACCU-CHEK FASTCLIX LANCETS MISC Use to check bloodsugar three times daily as needed LANCETS 78088458617 No Longer Active Tu Landeros MD Active ACCU-CHEK KEYONA PLUS STRP Use for testing bloodsugars three times daily as needed GLUCOSE BLOOD 63841193305 No Longer Active Tu Landeros MD Active ACCU-CHEK KEYONA PLUS W/DEVICE KIT Use for testing bloodsugars three times daily as needed BLOOD GLUCOSE MONITORING SUPPL 17968280790 No Longer Active Tu Landeros MD Active SPIRONOLACTONE 25 MG TAB 0.5 tablet by mouth daily SPIRONOLACTONE 10218943114 No Longer Active Tu Landeros MD Active ALPRAZOLAM 0.5 MG TABS 1 tab every 6hrs as needed ALPRAZOLAM 08971146716 No Longer Active Tu Landeros MD Active B-12 100 MCG TABS Take one by mouth daily CYANOCOBALAMIN 85720887176 Active Tu Landeros MD Active AUGMENTIN 875-125 MG TAB 1 tab by mouth twice daily with food AMOXICILLIN-POT CLAVULANATE 02904543803 No Longer Active Tu Landeros MD Active PREDNISONE 20 MG TAB 2 tabs daily for 3 days, 1 tab daily for 3 days, 1/2 tab daily for 2 days PREDNISONE 67146971075 No Longer Active Tu Landeros MD Active XANAX 0.5 MG TABS 1 tablet every 6 hrs prn ALPRAZOLAM 53712078406 No Longer Active Tu Landeros MD Active PREDNISONE 20 MG TAB 2 tabs daily for 3 days, 1 tab daily for 3 days, 1/2 tab daily for 2 days PREDNISONE 35555453291 No Longer Active Tu Landeros MD Active TRIAMCINOLONE ACETONIDE 0.1 % OINT Apply to affected areas TID for up to 2 weeks TRIAMCINOLONE ACETONIDE 60021901518 No Longer Active Tu Landeros MD Active LORTAB 5 5-500 MG TABS 1/2 to 1 tablet by mouth every 4 hours as needed for pain HYDROCODONE-ACETAMINOPHEN 19037965279 No Longer Active Tu Landeros MD Active MULTIVITAMINS TABS Take one by mouth daily MULTIPLE VITAMIN 79451593650 No Longer Active Tu Landeros MD Active MELATONIN 5 MG TABS Take one by mouth daily MELATONIN 02493081669 No Longer Active Tu Landeros MD Active SOMA 350 MG TAB 1 po q 6 hours prn spasm CARISOPRODOL 11175898995 No Longer Active Tu Landeros MD Active MECLIZINE HCL 25 MG CHEW TAB 1 four times a day as needed for dizziness 08/05 MECLIZINE HCL 47823605905 No Longer Active Fab Morales DO Active ANGEL BREEZE 2 TEST DISK test tid prn GLUCOSE BLOOD 89131855279 No Longer Active Negra Scott RN Active DICLOFENAC SODIUM 50 MG TBEC 1 tablet by mouth three times a day as needed DICLOFENAC SODIUM 51820109534 Active Tu Landeros MD Active REGLAN 10 MG TAB 1 po TID PRN [place] METOCLOPRAMIDE HCL 04119604367 No Longer Active Tu Landeros MD Active METFORMIN HCL 500 MG TABS 1 PO BID METFORMIN HCL 74748347478 No Longer Active Tu Landeros MD Active AMBIEN 10 MG TAB 1 tab by mouth at bedtime as needed for sleep ZOLPIDEM TARTRATE 38899543913 No Longer Active Tu Landeros MD Active FLUOXETINE HCL 40 MG CAPS 1 po q day FLUOXETINE HCL 89577745576 No Longer Active Mayra Terry Active FISH OIL 1000 MG CAPS Take one by mouth daily OMEGA-3 FATTY ACIDS 46967090021 Active Tu Landeros MD Active GLUCOSAMINE 500 MG TABS Take 2 tab po qd GLUCOSAMINE 87432237551 Active Tu Landeros MD Active TRILIPIX 135 MG CPDR 1 po qd CHOLINE FENOFIBRATE 70408730132 No Longer Active Tu Landeros MD Active ASPIRIN 81 MG CHEW TAB 1 tablet by mouth daily ASPIRIN 59247455576 Active Tu Landeros MD Active FUROSEMIDE 40 MG TAB 1 tablet by mouth daily FUROSEMIDE 00966120214 Active Tu Landeros MD Active REQUIP 2 MG TABS Take one tablet at bedtime prn ROPINIROLE HCL 90101566999 Active Tu Landeros MD Active KLOR-CON 10 10 MEQ CR-TABS TAKE 2 TABS DAILY POTASSIUM CHLORIDE 07676938943 Active Tu Landeros MD Active AMBIEN 10 MG TAB 1 tab by mouth at bedtime as needed for sleep AMBIEN 10 MG TAB 505702 ZOLPIDEM TARTRATE Inactive METFORMIN HCL 500 MG TABS 1 PO BID METFORMIN HCL 500 MG TABS 910785 METFORMIN HCL Inactive REGLAN 10 MG TAB 1 po TID PRN Nausea REGLAN 10 MG TAB 599877 METOCLOPRAMIDE HCL Inactive MECLIZINE HCL 25 MG CHEW TAB 1 four times a day as needed for dizziness 08/05 MECLIZINE HCL 25 MG CHEW TAB 202429 MECLIZINE HCL Inactive SOMA 350 MG TAB 1 po q 6 hours prn spasm SOMA 350 MG TAB 242308 CARISOPRODOL Inactive MELATONIN 5 MG TABS Take one by mouth daily MELATONIN 5 MG TABS 919040 MELATONIN Inactive MULTIVITAMINS TABS Take one by mouth daily MULTIVITAMINS TABS MULTIPLE VITAMIN Inactive LORTAB 5 5-500 MG TABS 1/2 to 1 tablet by mouth every 4 hours as needed for pain LORTAB 5 5-500 MG TABS HYDROCODONE- ACETAMINOPHEN Inactive XANAX 0.5 MG TABS 1 tablet every 6 hrs prn XANAX 0.5 MG TABS 040208 ALPRAZOLAM Inactive AUGMENTIN 875-125 MG TAB 1 tab by mouth twice daily with food AUGMENTIN 875-125 MG TAB 410263 AMOXICILLIN-POT CLAVULANATE Inactive ALPRAZOLAM 0.5 MG TABS 1 tab every 6hrs as needed ALPRAZOLAM 0.5 MG TABS 536379 ALPRAZOLAM Inactive SPIRONOLACTONE 25 MG TAB 0.5 tablet by mouth daily SPIRONOLACTONE 25 MG TAB 668082 SPIRONOLACTONE Inactive ACCU-CHEK KEYONA PLUS W/DEVICE KIT Use for testing bloodsugars three times daily as needed ACCU-CHEK KEYONA PLUS W/DEVICE KIT BLOOD GLUCOSE MONITORING SUPPL Inactive ACCU-CHEK KEYONA PLUS STRP Use for testing bloodsugars three times daily as needed ACCU-CHEK KEYONA PLUS STRP GLUCOSE BLOOD Inactive ACCU-CHEK FASTCLIX LANCETS MISC Use to check bloodsugar three times daily as needed ACCU-CHEK FASTCLIX LANCETS MISC 31606747778 LANCETS Inactive TRAMADOL HCL 50 MG TABS 1 tablets every 6 hours as needed for pain TRAMADOL HCL 50 MG TABS 385874 TRAMADOL HCL Inactive VENLAFAXINE HCL 75 MG TABS 1 po BID VENLAFAXINE HCL 75 MG TABS 348057 VENLAFAXINE HCL Inactive HYDROCODONE-ACETAMINOPHEN 5-500 MG TABS take one po Q 4-6 hours prn HYDROCODONE-ACETAMINOPHEN 5-500 MG TABS HYDROCODONE- ACETAMINOPHEN Inactive LORTAB 5 5-500 MG TABS 1/2 to 1 tablet by mouth every 4 hours as needed for pain LORTAB 5 5-500 MG TABS HYDROCODONE- ACETAMINOPHEN Inactive LAMISIL 250 MG TAB 1 po qd LAMISIL 250 MG TAB 006251 TERBINAFINE HCL Inactive VENLAFAXINE HCL 37.5 MG TABS 1 po BID VENLAFAXINE HCL 37.5 MG TABS 963537 VENLAFAXINE HCL Inactive CIPRO 500 MG TAB 1 tablet by mouth twice daily CIPRO 500 MG TAB 889806 CIPROFLOXACIN HCL Inactive VENLAFAXINE HCL 75 MG TABS 1 po BID VENLAFAXINE HCL 75 MG TABS 838612 VENLAFAXINE HCL Inactive SIMVASTATIN 40 MG TABS Take one by mouth daily SIMVASTATIN 40 MG TABS 556005 SIMVASTATIN Inactive OMEPRAZOLE 20 MG TBEC 1 PO 30 MIN BEFORE 1ST MEAL OMEPRAZOLE 20 MG TBEC 807641 OMEPRAZOLE Inactive FENOFIBRATE 145 MG TABS 1 po qd FENOFIBRATE 145 MG TABS 660143 FENOFIBRATE Inactive TRIAMCINOLONE ACETONIDE 0.1 % OINT Apply to affected areas TID for up to 2 weeks TRIAMCINOLONE ACETONIDE 0.1 % OINT 1822928 TRIAMCINOLONE ACETONIDE Inactive PREDNISONE 20 MG TAB 2 tabs daily for 3 days, 1 tab daily for 3 days, 1/2 tab daily for 2 days PREDNISONE 20 MG TAB 638983 PREDNISONE Inactive PREDNISONE 20 MG TAB 2 tabs daily for 3 days, 1 tab daily for 3 days, 1/2 tab daily for 2 days PREDNISONE 20 MG TAB 441576 PREDNISONE Inactive BACTRIM DS 800-160 MG TABS 1 po BID x 7 days BACTRIM DS 800-160 MG TABS SULFAMETHOXAZOLE-TRIMETHOPRIM Inactive Immunizations Vaccine Administration Date Value Standard Description Seasonal influenza vaccine, injectable, containing preservative, for > 3 years old (Afluria, FluLaval, Fluzone, Fluvirin, Fluarix, Agriflu(>=18 yo)) Fluzone (>3 yrs.) [[id number]] Influenza, seasonal, injectable influenza immunization (Flu Vax) has been administered 02/22/2012 influenza virus vaccine, unspecified formulation Seasonal influenza vaccine, injectable, containing preservative, for > 3 years old (Afluria, FluLaval, Fluzone, Fluvirin, Fluarix, Agriflu(>=18 yo)) Fluzone (>3 yrs.) [[id number]] Influenza, seasonal, injectable Vital Signs Date Name [...] Panel - Chemistry sodium, serum 139 mmol/L 920-117 8906/11/27 potassium, serum 4.9 mmol/L 3.5-5.2 chloride, serum [...] Panel - Chemistry sodium, serum 139 mmol/L 570-762 6259/11/22 potassium, serum 4.3 mmol/L 3.5-5.2 chloride, serum [...] Metabolic Panel, Lipid Panel, HGBA1C - Chemistry blood glucose 104 mg/dL 65-110 carbon dioxide, venous blood 31.8 mmol/L 21.0-32.0 chloride, serum 105 mmol/L 98-107 potassium, serum 4.9 mmol/L 3.5-5.2 sodium, serum 142 mmol/L 758-746 6306/10/22 urea nitrogen, blood 25 mg/dL 7-18 creatinine, serum 1.30 mg/dL 0.60-1.30 alanine aminotransferase (SGPT), serum 36 U/L 12-78 aspartate aminotransferase (SGOT), serum 24 U/L 15-37 alkaline phosphatase, serum 86 U/L 50-136 calcium, serum 9.0 mg/dL 8.5-10.1 bilirubin, serum, total 0.30 mg/dL 0.00-1.00 cholesterol, serum 139 mg/dL 898-301 5018/10/22 triglyceride, serum, fasting 168 mg/dL 30-200 HDL cholesterol, serum 40 mg/dL 32-96 LDL cholesterol, serum 65 mg/dL 0-130 hemoglobin A1C, blood, as % of total hemoglobin 6.2 % 4.3-6.0 sodium, serum 144 mmol/L 967-844 0079/04/16 potassium, serum 4.2 mmol/L 3.5-5.2 chloride, serum [...] 0.20 mg/dL 0.00-1.00 cholesterol, serum 133 mg/dL 379-762 6922/04/16 triglyceride, serum, fasting 142 mg/dL 30-200 HDL [...] mg/dL Encounters Code Encounter Date Provider Facility CPT-08121 Level 4 Est. Patient 09:45:25 CDT Tu Landeros MD [facility] CPT-00315 Level 4 Est. Patient 09:05:20 [employer] Tu Landeros MD [facility] CPT-41415 Level 4 Est. Patient 14:09:06 CDT Tu Landeros MD [facility] CPT-32298 Level 3 Est. Patient 13:36:54 CDT Tu Landeros MD [facility] CPT-34135 Level 3 Est. Patient 08:59:14 CDT Tu Landeros MD [facility] CPT-08923 Level 3 Est. Patient 13:48:35 CDT Fab Morales DO [facility] CPT-77933 Level 4 Est. Patient 10:05:48 CDT Tu Landeros MD [facility] CPT-74059 Level 3 Est. Patient 13:38:42 CDT Marek BANKS [facility] CPT-51394 Level 5 Est. Patient 08:08:39 CDT Jerrica FRANCIS [facility] CPT-46946 Level 4 Est. Patient 14:23:38 CDT Tu Landeros MD [facility] CPT-56748 Level 3 Est. Patient 11:44:04 CDT Tu Landeros MD [facility] CPT-25277 Level 3 Est. Patient 11:03:20 [employer] Tu Landeros MD [facility] CPT-58786 Level 3 Est. Patient 11:03:14 [employer] Tu Landeros MD [facility] CPT-69267 Level 3 Est. Patient 12:42:49 CDT Tu Landeros MD [facility] CPT-35772 Level 3 Est. Patient 11:52:06 CDT Tu Landeros MD [facility] CPT-17993 Level 3 Est. Patient 13:58:11 CDT Tu Landeros MD [facility] CPT-01530 Level 3 Est. Patient 17:50:07 CDT Fab Morales DO [facility] CPT-08522 Level 3 Est. Patient 12:06:29 CDT Elvira Cervantes MD PhD [facility] CPT-61367 Level 3 Est. Patient 15:50:32 CDT Tu Landeros MD [facility] CPT-76404 Level 4 Est. Patient 16:08:29 CDT Tu Landeros MD [facility] CPT-44926 Level 3 Est. Patient 16:04:19 CDT Tu Landeros MD [facility] CPT-57724 Level 3 Est. Patient 11:22:30 [employer] Tu Landeros MD [facility] CPT-54109 Level 4 Est. Patient 16:24:02 [employer] Tu Landeros MD [facility] CPT-46987 Level 3 Est. Patient 17:21:23 [employer] Tu Landeros MD [facility] Procedures Code Procedure Name Date Entry Date Standard Description CPT-OV Office Visit 15:45:11 CDT CPT-000 Give Zostavax 14:09:06 CDT CPT-87531 Administration single or combination vaccine inc oral 15 :19:04 CDT CPT-27650 Zoster Vaccine (Zostavax) 15:19:04 CDT CPT-04766 Administration single or combination vaccine inc oral 20 :51:03 CDT CPT-46847 Influenza split virus > age 3 20:51:03 CDT CPT-82044 No Charge Offi Visit 14:52:03 CDT CPT-OV Office Visit 14:57:43 CDT CPT-OV Office Visit 15:22:32 CDT CPT-84978 Administration single or combination vaccine inc oral 11 :33:15 CDT CPT-22475 Influenza split virus > age 3 11:33:15 CDT
--- OUTSIDE RECORDS SUMMARY | 2018-04-25 19:13 | XMS REPORT | Clinical Summary ---
Author Author Admin, SACHI Organization [facility] Address Unknown Phone Allergies, Adverse Reactions, Alerts Allergy Name Reaction [...] Tu Landeros MD Restless legs syndrome (RLS) POSTMENOPAUSAL BLEEDING ICD-627.1 Inactive Elvira Cervantes MD [...] Generic Name NDC Status Provider Patient Instruction HYDROCODONE-ACETAMINOPHEN 5-325 MG TABS 1 tab by mouth every 6 hours as needed for pain HYDROCODONE-ACETAMINOPHEN 85076985259 Active Tu Landeros MD Active METFORMIN HCL 500 MG TB24 1.5 po BID METFORMIN HCL 54374300086 Active Tu Landeros MD Active GABAPENTIN 100 MG CAPS 3 po tid GABAPENTIN 34167132273 Active Tu Landeros MD Active CIPRO 500 MG TAB 1 tablet by mouth twice daily CIPROFLOXACIN HCL 41989245335 No Longer Active Tu Landeros MD Active VENLAFAXINE HCL 75 MG TABS 1 po BID VENLAFAXINE HCL 00197608985 Active Tu Landeros MD Active VENLAFAXINE HCL 37.5 MG TABS 1 po BID VENLAFAXINE HCL 09983158053 No Longer Active Suze Corey RMA Active [employer] STOOL SOFTENER 100 MG CAPS 1 tab daily DOCUSATE SODIUM 22767962283 Active Tu Landeros MD Active LAMISIL 250 MG TAB 1 po qd TERBINAFINE HCL 19239664144 No Longer Active Tu Landeros MD Active LORTAB 5 5-500 MG TABS 1/2 to 1 tablet by mouth every 4 hours as needed for pain HYDROCODONE-ACETAMINOPHEN 06450083782 No Longer Active Tu Landeros MD Active FENOFIBRATE 145 MG TABS 1 po qd FENOFIBRATE 05001824327 Active Tu Landeros MD Active ENALAPRIL MALEATE 20 MG TABS 1.5 po qd ENALAPRIL MALEATE 58812408058 Active Tu Landeros MD Active HYDROCODONE-ACETAMINOPHEN 5-500 MG TABS take one po Q 4-6 hours prn HYDROCODONE-ACETAMINOPHEN 45074644466 No Longer Active Tu Landeros MD Active BACTRIM DS 800-160 MG TABS 1 po BID x 7 days SULFAMETHOXAZOLE-TRIMETHOPRIM 21974997689 No Longer Active Tu Landeros MD Active VENLAFAXINE HCL 75 MG TABS 1 po BID VENLAFAXINE HCL 34845675394 No Longer Active Elvira Cervantes MD PhD Active TRUERESULT BLOOD GLUCOSE W/DEVICE KIT use to test blood sugar tid dx: 250.00 BLOOD GLUCOSE MONITORING SUPPL 99875313284 Active Tu Landeros MD Active TRUETEST TEST STRP test blood sugar three times daily dx: 250.00 GLUCOSE BLOOD 85526682305 Active Tu Landeros MD Active ACCU-CHEK FASTCLIX LANCETS MISC Use to check bloodsugar three times daily as needed LANCETS 54588372561 No Longer Active Tu Landeros MD Active ACCU-CHEK KEYONA PLUS STRP Use for testing bloodsugars three times daily as needed GLUCOSE BLOOD 74289749011 No Longer Active Tu Landeros MD Active ACCU-CHEK KEYONA PLUS W/DEVICE KIT Use for testing bloodsugars three times daily as needed BLOOD GLUCOSE MONITORING SUPPL 12728056588 No Longer Active Tu Landeros MD Active SPIRONOLACTONE 25 MG TAB 0.5 tablet by mouth daily SPIRONOLACTONE 76653223406 No Longer Active Tu Landeros MD Active TRAMADOL HCL 50 MG TABS 1 tablets every 6 hours as needed for pain TRAMADOL HCL 31340669070 Active Tu Landeros MD Active ALPRAZOLAM 0.5 MG TABS 1 tab every 6hrs as needed ALPRAZOLAM 58075949582 No Longer Active Tu Landeros MD Active B-12 100 MCG TABS Take one by mouth daily CYANOCOBALAMIN 55905765669 Active Tu Landeros MD Active AUGMENTIN 875-125 MG TAB 1 tab by mouth twice daily with food AMOXICILLIN-POT CLAVULANATE 16426565147 No Longer Active Tu Landeros MD Active PREDNISONE 20 MG TAB 2 tabs daily for 3 days, 1 tab daily for 3 days, 1/2 tab daily for 2 days PREDNISONE 03806476851 No Longer Active Tu Landeros MD Active XANAX 0.5 MG TABS 1 tablet every 6 hrs prn ALPRAZOLAM 64217946032 No Longer Active Tu Landeros MD Active PREDNISONE 20 MG TAB 2 tabs daily for 3 days, 1 tab daily for 3 days, 1/2 tab daily for 2 days PREDNISONE 59465042674 No Longer Active Tu Landeros MD Active TRIAMCINOLONE ACETONIDE 0.1 % OINT Apply to affected areas TID for up to 2 weeks TRIAMCINOLONE ACETONIDE 45470156263 No Longer Active Tu Landeros MD Active LORTAB 5 5-500 MG TABS 1/2 to 1 tablet by mouth every 4 hours as needed for pain HYDROCODONE-ACETAMINOPHEN 27933906605 No Longer Active Tu Landeros MD Active MULTIVITAMINS TABS Take one by mouth daily MULTIPLE VITAMIN 95064216019 No Longer Active uT Landeros MD Active MELATONIN 5 MG TABS Take one by mouth daily MELATONIN 02777304059 No Longer Active Tu Landeros MD Active SOMA 350 MG TAB 1 po q 6 hours prn spasm CARISOPRODOL 31252593405 No Longer Active Tu Landeros MD Active MECLIZINE HCL 25 MG CHEW TAB 1 four times a day as needed for dizziness 08/05 MECLIZINE HCL 51743968276 No Longer Active Fab Deann Andrew MCCORMACK Active ANGEL BREEZE 2 TEST DISK test tid prn GLUCOSE BLOOD 25269477263 No Longer Active Negra Scott MICHAEL Active DICLOFENAC SODIUM 50 MG TBEC 1 tablet by mouth three times a day as needed DICLOFENAC SODIUM 18532889724 Active Tu Landeros MD Active REGLAN 10 MG TAB 1 po TID PRN Nausea METOCLOPRAMIDE HCL 01505841595 No Longer Active Tu Landeros MD Active METFORMIN HCL 500 MG TABS 1 PO BID METFORMIN HCL 73042720815 No Longer Active Tu Landeros MD Active CARVEDILOL 12.5 MG TABS Take 1 by mouth twice a day CARVEDILOL 39566471698 Active Tu Landeros MD Active AMBIEN 10 MG TAB 1 tab by mouth at bedtime as needed for sleep ZOLPIDEM TARTRATE 38143421035 No Longer Active Tu Landeros MD Active FLUOXETINE HCL 40 MG CAPS 1 po q day FLUOXETINE HCL 52368353700 No Longer Active Mayra [place] Active FISH OIL 1000 MG CAPS Take one by mouth daily OMEGA-3 FATTY ACIDS 92796380190 Active Tu Landeros MD Active GLUCOSAMINE 500 MG TABS Take 2 tab po qd GLUCOSAMINE 84913771830 Active Tu Landeros MD Active TRILIPIX 135 MG CPDR 1 po qd CHOLINE FENOFIBRATE 46360356579 No Longer Active Tu Landeros MD Active ASPIRIN 81 MG CHEW TAB 1 tablet by mouth daily ASPIRIN 92284551036 Active Tu Landeros MD Active FUROSEMIDE 40 MG TAB 1 tablet by mouth daily FUROSEMIDE 99128227326 Active Tu Landeros MD Active REQUIP 2 MG TABS Take one tablet at bedtime prn ROPINIROLE HCL 63466104885 Active Tu Landeros MD Active SIMVASTATIN 40 MG TABS Take one by mouth daily SIMVASTATIN 96157698049 Active Tu Landeros MD Active KLOR-CON 10 10 MEQ CR-TABS TAKE 2 TABS DAILY POTASSIUM CHLORIDE 57429878566 Active Tu Landeros MD Active OMEPRAZOLE 20 MG TBEC 1 PO 30 MIN BEFORE 1ST MEAL OMEPRAZOLE 95531262745 Active Tu Landeros MD Active AMBIEN 10 MG TAB 1 tab by mouth at bedtime as needed for sleep AMBIEN 10 MG TAB 167645 ZOLPIDEM TARTRATE Inactive METFORMIN HCL 500 MG TABS 1 PO BID METFORMIN HCL 500 MG TABS 537621 METFORMIN HCL Inactive REGLAN 10 MG TAB 1 po TID PRN [place]ausea REGLAN 10 MG TAB 857716 METOCLOPRAMIDE HCL Inactive MECLIZINE HCL 25 MG CHEW TAB 1 four times a day as needed for dizziness 08/05 MECLIZINE HCL 25 MG CHEW TAB 175695 MECLIZINE HCL Inactive SOMA 350 MG TAB 1 po q 6 hours prn spasm SOMA 350 MG TAB 251004 CARISOPRODOL Inactive MELATONIN 5 MG TABS Take one by mouth daily MELATONIN 5 MG TABS 944328 MELATONIN Inactive MULTIVITAMINS TABS Take one by mouth daily MULTIVITAMINS TABS MULTIPLE VITAMIN Inactive LORTAB 5 5-500 MG TABS 1/2 to 1 tablet by mouth every 4 hours as needed for pain LORTAB 5 5-500 MG TABS HYDROCODONE- ACETAMINOPHEN Inactive XANAX 0.5 MG TABS 1 tablet every 6 hrs prn XANAX 0.5 MG TABS 097488 ALPRAZOLAM Inactive AUGMENTIN 875-125 MG TAB 1 tab by mouth twice daily with food AUGMENTIN 875-125 MG TAB 237152 AMOXICILLIN-POT CLAVULANATE Inactive ALPRAZOLAM 0.5 MG TABS 1 tab every 6hrs as needed ALPRAZOLAM 0.5 MG TABS 282058 ALPRAZOLAM Inactive SPIRONOLACTONE 25 MG TAB 0.5 tablet by mouth daily SPIRONOLACTONE 25 MG TAB 117722 SPIRONOLACTONE Inactive ACCU-CHEK KEYONA PLUS W/DEVICE KIT Use for testing bloodsugars three times daily as needed ACCU-CHEK KEYONA PLUS W/DEVICE KIT BLOOD GLUCOSE MONITORING SUPPL Inactive ACCU-CHEK KEYONA PLUS STRP Use for testing bloodsugars three times daily as needed ACCU-CHEK KEYONA PLUS STRP GLUCOSE BLOOD Inactive ACCU-CHEK FASTCLIX LANCETS MISC Use to check bloodsugar three times daily as needed ACCU-CHEK FASTCLIX LANCETS MISC 24692180916 LANCETS Inactive VENLAFAXINE HCL 75 MG TABS 1 po BID VENLAFAXINE HCL 75 MG TABS 924304 VENLAFAXINE HCL Inactive HYDROCODONE-ACETAMINOPHEN 5-500 MG TABS take one po Q 4-6 hours prn HYDROCODONE-ACETAMINOPHEN 5-500 MG TABS 346415 HYDROCODONE- ACETAMINOPHEN Inactive LORTAB 5 5-500 MG TABS 1/2 to 1 tablet by mouth every 4 hours as needed for pain LORTAB 5 5-500 MG TABS HYDROCODONE- ACETAMINOPHEN Inactive LAMISIL 250 MG TAB 1 po qd LAMISIL 250 MG TAB 986101 TERBINAFINE HCL Inactive VENLAFAXINE HCL 37.5 MG TABS 1 po BID VENLAFAXINE HCL 37.5 MG TABS 942292 VENLAFAXINE HCL Inactive CIPRO 500 MG TAB 1 tablet by mouth twice daily CIPRO 500 MG TAB 697016 CIPROFLOXACIN HCL Inactive TRIAMCINOLONE ACETONIDE 0.1 % OINT Apply to affected areas TID for up to 2 weeks TRIAMCINOLONE ACETONIDE 0.1 % OINT 1505085 TRIAMCINOLONE ACETONIDE Inactive PREDNISONE 20 MG TAB 2 tabs daily for 3 days, 1 tab daily for 3 days, 1/2 tab daily for 2 days PREDNISONE 20 MG TAB 225857 PREDNISONE Inactive PREDNISONE 20 MG TAB 2 tabs daily for 3 days, 1 tab daily for 3 days, 1/2 tab daily for 2 days PREDNISONE 20 MG TAB 998867 PREDNISONE Inactive BACTRIM DS 800-160 MG TABS 1 po BID x 7 days BACTRIM DS 800-160 MG TABS SULFAMETHOXAZOLE-TRIMETHOPRIM Inactive Immunizations Vaccine Administration Date Value Standard Description Seasonal influenza vaccine, injectable, containing preservative, for > 3 years old (Afluria, FluLaval, Fluzone, Fluvirin, Fluarix, Agriflu(>=18 yo)) Fluzone (>3 yrs.) [[id number]] Influenza, seasonal, injectable influenza immunization (Flu Vax) has been administered 02/22/2012 influenza virus vaccine, unspecified formulation Seasonal influenza vaccine, injectable, containing preservative, for > 3 years old (Afluria, FluLaval, Fluzone, Fluvirin, Fluarix, Agriflu(>=18 yo)) Fluzone (>3 yrs.) [[id number]] Influenza, seasonal, injectable Vital Signs Date Name Value Unit Range Description blood pressure, diastolic 85 mm[Hg] BP ac blood pressure, systolic 164 mm[Hg] BP sys pulse rate E&M 72 /min Heart rate temperature E&M 96.6 [degF] Body temperature weight E&M 305.25 [lb_av] Weight Measured blood pressure, diastolic 81 mm[Hg] BP ac blood pressure, systolic 115 mm[Hg] BP sys height E&M 62.5 [in_us] Bdy height pulse rate E&M 74 /min Heart rate temperature E&M 96.5 [degF] Body temperature weight E&M 312.13 [lb_av] Weight Measured blood pressure, diastolic 79 mm[Hg] BP ac blood pressure, systolic 143 mm[Hg] BP sys height E&M 62.5 [in_us] Bdy height pulse rate E&M 76 /min Heart rate temperature E&M 96.8 [degF] Body temperature weight E&M 311.31 [lb_av] Weight Measured blood pressure, diastolic 71 mm[Hg] BP ac blood pressure, systolic 145 mm[Hg] BP sys pulse rate E&M 67 /min Heart rate temperature E&M 97.1 [degF] Body temperature weight E&M 312.50 [lb_av] Weight Measured blood pressure, diastolic 76 mm[Hg] BP ac blood pressure, systolic 157 mm[Hg] BP sys pulse rate E&M 73 /min Heart rate temperature E&M 96.2 [degF] Body temperature weight E&M 314.50 [lb_av] Weight Measured blood pressure, diastolic 84 mm[Hg] BP ac blood pressure, systolic 140 mm[Hg] BP sys height E&M 62.5 [in_us] Bdy height pulse rate E&M 63 /min Heart rate temperature E&M 97.8 [degF] Body temperature weight E&M 317 [lb_av] Weight Measured blood pressure, diastolic 80 mm[Hg] BP ac blood pressure, systolic 148 mm[Hg] BP sys height E&M 62.5 [in_us] Bdy height pulse rate E&M 72 /min Heart rate temperature E&M 97.3 [degF] Body temperature weight E&M 317 [lb_av] Weight Measured blood pressure, diastolic 67 mm[Hg] BP ac blood pressure, systolic 126 mm[Hg] BP sys height E&M 62.5 [in_us] Bdy height pulse rate E&M 69 /min Heart rate temperature E&M 96.6 [degF] Body temperature weight E&M 317 [lb_av] Weight Measured blood pressure, diastolic 76 mm[Hg] BP ac blood pressure, systolic 174 mm[Hg] BP sys height E&M 62.5 [in_us] Bdy height pulse rate E&M 59 /min Heart rate temperature E&M 98. [degF] Body temperature weight E&M 322 [lb_av] Weight Measured blood pressure, diastolic 75 mm[Hg] BP ac blood pressure, systolic 131 mm[Hg] BP sys pulse rate E&M 66 /min Heart rate temperature E&M 96.6 [degF] Body temperature weight E&M 321.38 [lb_av] Weight Measured blood pressure, diastolic 70 mm[Hg] BP ac blood pressure, systolic 110 mm[Hg] BP sys height E&M 62.5 [in_us] Bdy height pulse rate E&M 68 /min Heart rate weight E&M 322 [lb_av] Weight Measured Diagnostic Results Date Name Value Unit Range Description Lab Report: Basic Metabolic Panel - Chemistry sodium, serum 139 mmol/L 782-813 4099/11/27 potassium, serum 4.9 mmol/L 3.5-5.2 chloride, serum [...] Panel - Chemistry sodium, serum 139 mmol/L 009-758 8200/11/22 potassium, serum 4.3 mmol/L 3.5-5.2 chloride, serum [...] HGBA1C - Chemistry sodium, serum 144 mmol/L 974-726 9996/04/16 potassium, serum 4.2 mmol/L 3.5-5.2 chloride, serum [...] 0.20 mg/dL 0.00-1.00 cholesterol, serum 133 mg/dL 718-888 6768/04/16 triglyceride, serum, fasting 142 mg/dL 30-200 HDL cholesterol, serum 38 mg/dL 32-96 LDL cholesterol, serum 67 mg/dL 0-130 hemoglobin A1C, blood, as % of total hemoglobin 7.1 % 4.3-6.0 sodium, serum 142 mmol/L 853-646 5342/10/22 potassium, serum 4.9 mmol/L 3.5-5.2 chloride, serum [...] 0.30 mg/dL 0.00-1.00 cholesterol, serum 139 mg/dL 346-846 0111/10/22 triglyceride, serum, fasting 168 mg/dL 30-200 HDL cholesterol, serum 40 mg/dL 32-96 LDL cholesterol, serum 65 mg/dL 0-130 hemoglobin A1C, blood, as % of total hemoglobin 6.2 % 4.3-6.0 Lab Report: HGBA1C - Chemistry hemoglobin A1C, blood, as % of total hemoglobin 6.6 % 4.3-6.0 Office Visit: 3 month f/u 302 - Chemistry cholesterol, target level 200 mg/dL triglyceride, target level 200 mg/dL HDL cholesterol, serum, target level 35 mg/dL LDL target level 100 mg/dL Office Visit: Diabetes Visit - Chemistry cholesterol, target level 200 mg/dL triglyceride, target level 200 mg/dL HDL cholesterol, serum, target level 35 mg/dL LDL target level 100 mg/dL home glucose monitor utilized Yes Encounters Code Encounter Date Provider Facility CPT-56675 Level 4 Est. Patient 09:45:25 CDT Tu Landeros MD [facility] CPT-26867 Level 4 Est. Patient 09:05:20 [employer] Tu Landeros MD [facility] CPT-09335 Level 4 Est. Patient 14:09:06 CDT Tu Landeros MD [facility] CPT-65417 Level 3 Est. Patient 13:36:54 CDT Tu Landeros MD [facility] CPT-62019 Level 3 Est. Patient 08:59:14 CDT Tu Landeros MD [facility] CPT-53136 Level 3 Est. Patient 13:48:35 CDT Fab Morales DO [facility] CPT-56604 Level 4 Est. Patient 10:05:48 CDT Tu Landeros MD [facility] CPT-63543 Level 3 Est. Patient 13:38:42 CDT Marek BANKS [facility] CPT-59672 Level 5 Est. Patient 08:08:39 CDT Jerrica FRANCIS [facility] CPT-53752 Level 4 Est. Patient 14:23:38 CDT Tu Landeros MD [facility] CPT-64585 Level 3 Est. Patient 11:44:04 CDT Tu Landeros MD [facility] CPT-69350 Level 3 Est. Patient 11:03:20 [employer] Tu Landeros MD [facility] CPT-46003 Level 3 Est. Patient 11:03:14 [employer] Tu Landeros MD [facility] CPT-10872 Level 3 Est. Patient 12:42:49 CDT Tu Landeros MD [facility] CPT-36260 Level 3 Est. Patient 11:52:06 CDT Tu Landeros MD [facility] CPT-88432 Level 3 Est. Patient 13:58:11 CDT Tu Landeros MD [facility] CPT-63540 Level 3 Est. Patient 17:50:07 CDT Fab Morales DO [facility] CPT-91408 Level 3 Est. Patient 12:06:29 CDT Elvira Cervantes MD PhD [facility] CPT-96324 Level 3 Est. Patient 15:50:32 CDT Tu Landeros MD [facility] CPT-87168 Level 4 Est. Patient 16:08:29 CDT Tu Landeros MD [facility] CPT-33315 Level 3 Est. Patient 16:04:19 CDT Tu Landeros MD [facility] CPT-78891 Level 3 Est. Patient 11:22:30 [employer] Tu Landeros MD [facility] CPT-97368 Level 4 Est. Patient 16:24:02 [employer] Tu Landeros MD [facility] CPT-17522 Level 3 Est. Patient 17:21:23 [employer] Tu Landeros MD [facility] Procedures Code Procedure Name Date Entry Date Standard Description CPT-000 Give Zostavax 14:09:06 CDT CPT-90217 Administration single or combination vaccine inc oral 15 :19:04 CDT CPT-16994 Zoster Vaccine (Zostavax) 15:19:04 CDT CPT-58410 Administration single or combination vaccine inc oral 20 :51:03 CDT CPT-35741 Influenza split virus > age 3 20:51:03 CDT CPT-07257 No Charge Offi Visit 14:52:03 CDT CPT-OV Office Visit 14:57:43 CDT CPT-OV Office Visit 15:22:32 CDT CPT-56411 Administration single or combination vaccine inc oral 11 :33:15 CDT CPT-93655 Influenza split virus > age 3 11:33:15 CDT
--- OUTSIDE RECORDS SUMMARY | 2018-04-25 19:14 | XMS REPORT | Clinical Summary ---
Author Author Admin, SACHI [facility] Address Unknown Phone Unavailable Allergies, Adverse [...] 12.5 MG TABS 1 po BID CARVEDILOL 32408869000 Active Tu Landeros MD Active CIPRO 500 MG TABS 1 bid x 14 days start 09-28-13 CIPROFLOXACIN HCL 08727011028 Active JASPREET Perez Active ALIGN 4 MG CAPS 1 tid PROBIOTIC PRODUCT 90059567006 Active JASPREET Perez Active BACTRIM DS 800-160 MG TABS 1 bid x 14 day start 09-28-13 SULFAMETHOXAZOLE-TRIMETHOPRIM 66980503649 Active JASPREET Perez Active GABAPENTIN 300 MG CAPS 1 tid GABAPENTIN 00903380632 Active JASPREET Perez Active SUPER B COMPLEX/VITAMIN C TABS 1 qd B COMPLEX-C 85321009645 Active JASPREET Perez Active TRILIPIX 135 MG CPDR 1 q hs CHOLINE FENOFIBRATE 82171542160 Active Tu Landeros MD Active FENOFIBRATE 145 MG TABS 1 po qd FENOFIBRATE 42423039047 No Longer Active JASPREET Perez Active OMEPRAZOLE 20 MG TBEC 1 PO 30 MIN BEFORE 1ST MEAL OMEPRAZOLE 23141766856 No Longer Active JASPREET Perez Active SIMVASTATIN 40 MG TABS Take one by mouth daily SIMVASTATIN 13908479868 No Longer Active JASPREET Perez Active GABAPENTIN 100 MG CAPS 1 po bid GABAPENTIN 25168997238 Active JASPREET Perez Active VENLAFAXINE HCL 37.5 MG TABS 1 bid VENLAFAXINE HCL 57506418692 Active JASPREET Perez Active VENLAFAXINE HCL 75 MG TABS 1 po BID VENLAFAXINE HCL 23009692444 No Longer Active JASPREET Perez Active HYDROCODONE-ACETAMINOPHEN 5-325 MG TABS 1 tab by mouth every 6 hours as needed for pain HYDROCODONE-ACETAMINOPHEN 93481717381 Active Tu Landeros MD Active METFORMIN HCL 500 MG TB24 1.5 po BID METFORMIN HCL 22072437118 Active Tu Landeros MD Active CIPRO 500 MG TAB 1 tablet by mouth twice daily CIPROFLOXACIN HCL 09852075182 No Longer Active Tu Landeros MD Active VENLAFAXINE HCL 37.5 MG TABS 1 po BID VENLAFAXINE HCL 76568502541 No Longer Active Suze Corey RMA Active [employer] STOOL SOFTENER 100 MG CAPS 1 tab daily DOCUSATE SODIUM 07691444529 Active Tu Landeros MD Active LAMISIL 250 MG TAB 1 po qd TERBINAFINE HCL 80004049384 No Longer Active Tu Landeros MD Active LORTAB 5 5-500 MG TABS 1/2 to 1 tablet by mouth every 4 hours as needed for pain HYDROCODONE-ACETAMINOPHEN 41554051512 No Longer Active Tu Landeros MD Active ENALAPRIL MALEATE 20 MG TABS 1.5 po qd ENALAPRIL MALEATE 91836243478 Active Tu Landeros MD Active HYDROCODONE-ACETAMINOPHEN 5-500 MG TABS take one po Q 4-6 hours prn HYDROCODONE-ACETAMINOPHEN 26090449635 No Longer Active Tu Landeros MD Active BACTRIM DS 800-160 MG TABS 1 po BID x 7 days SULFAMETHOXAZOLE-TRIMETHOPRIM 89477834131 No Longer Active Tu Landeros MD Active VENLAFAXINE HCL 75 MG TABS 1 po BID VENLAFAXINE HCL 74941097958 No Longer Active Elvira Cervantes MD PhD Active TRAMADOL HCL 50 MG TABS 1 tablets every 6 hours as needed for pain TRAMADOL HCL 60389703012 No Longer Active Tu Landeros MD Active TRUERESULT BLOOD GLUCOSE W/DEVICE KIT use to test blood sugar tid dx: 250.00 BLOOD GLUCOSE MONITORING SUPPL 89643500081 Active Tu Landeros MD Active TRUETEST TEST STRP test blood sugar three times daily dx: 250.00 GLUCOSE BLOOD 86126130028 Active Tu Landeros MD Active ACCU-CHEK FASTCLIX LANCETS MISC Use to check bloodsugar three times daily as needed LANCETS 55510254813 No Longer Active Tu Landeros MD Active ACCU-CHEK KEYNOA PLUS STRP Use for testing bloodsugars three times daily as needed GLUCOSE BLOOD 50133880762 No Longer Active Tu Landeros MD Active ACCU-CHEK KEYONA PLUS W/DEVICE KIT Use for testing bloodsugars three times daily as needed BLOOD GLUCOSE MONITORING SUPPL 88875735894 No Longer Active Tu Landeros MD Active SPIRONOLACTONE 25 MG TAB 0.5 tablet by mouth daily SPIRONOLACTONE 91153545997 No Longer Active Tu Landeros MD Active ALPRAZOLAM 0.5 MG TABS 1 tab every 6hrs as needed ALPRAZOLAM 44269802654 No Longer Active Tu Landeros MD Active B-12 100 MCG TABS Take one by mouth daily CYANOCOBALAMIN 83790108497 Active Tu Landeros MD Active AUGMENTIN 875-125 MG TAB 1 tab by mouth twice daily with food AMOXICILLIN-POT CLAVULANATE 68532271008 No Longer Active Tu Landeros MD Active PREDNISONE 20 MG TAB 2 tabs daily for 3 days, 1 tab daily for 3 days, 1/2 tab daily for 2 days PREDNISONE 64276279390 No Longer Active Tu Landeros MD Active XANAX 0.5 MG TABS 1 tablet every 6 hrs prn ALPRAZOLAM 81838837919 No Longer Active Tu Landeros MD Active PREDNISONE 20 MG TAB 2 tabs daily for 3 days, 1 tab daily for 3 days, 1/2 tab daily for 2 days PREDNISONE 00124583250 No Longer Active Tu Landeros MD Active TRIAMCINOLONE ACETONIDE 0.1 % OINT Apply to affected areas TID for up to 2 weeks TRIAMCINOLONE ACETONIDE 52505256399 No Longer Active Tu Landeros MD Active LORTAB 5 5-500 MG TABS 1/2 to 1 tablet by mouth every 4 hours as needed for pain HYDROCODONE-ACETAMINOPHEN 39829546999 No Longer Active Tu Landeros MD Active MULTIVITAMINS TABS Take one by mouth daily MULTIPLE VITAMIN 95932894315 No Longer Active Tu Landeros MD Active MELATONIN 5 MG TABS Take one by mouth daily MELATONIN 25389880914 No Longer Active Tu Landeros MD Active SOMA 350 MG TAB 1 po q 6 hours prn spasm CARISOPRODOL 11935803136 No Longer Active Tu Landeros MD Active MECLIZINE HCL 25 MG CHEW TAB 1 four times a day as needed for dizziness 08/05 MECLIZINE HCL 94738559765 No Longer Active Fab Morales DO Active ANGEL BREEZE 2 TEST DISK test tid prn GLUCOSE BLOOD 10192198512 No Longer Active Negra Scott RN Active DICLOFENAC SODIUM 50 MG TBEC 1 tablet by mouth three times a day as needed DICLOFENAC SODIUM 94593631195 Active Tu Landeros MD Active REGLAN 10 MG TAB 1 po TID PRN Nausea METOCLOPRAMIDE HCL 69586673218 No Longer Active Tu Landeros MD Active METFORMIN HCL 500 MG TABS 1 PO BID METFORMIN HCL 34194979537 No Longer Active Tu Landeros MD Active AMBIEN 10 MG TAB 1 tab by mouth at bedtime as needed for sleep ZOLPIDEM TARTRATE 08062831073 No Longer Active Tu Landeros MD Active FLUOXETINE HCL 40 MG CAPS 1 po q day FLUOXETINE HCL 29397373565 No Longer Active Mayra Terry Active FISH OIL 1000 MG CAPS Take one by mouth daily OMEGA-3 FATTY ACIDS 84327789773 Active Tu Landeros MD Active GLUCOSAMINE 500 MG TABS Take 2 tab po qd GLUCOSAMINE 43120536497 Active Tu Landeros MD Active TRILIPIX 135 MG CPDR 1 po qd CHOLINE FENOFIBRATE 44508028580 No Longer Active Tu Landeros MD Active ASPIRIN 81 MG CHEW TAB 1 tablet by mouth daily ASPIRIN 88821165472 Active Tu Landeros MD Active FUROSEMIDE 40 MG TAB 1 tablet by mouth daily FUROSEMIDE 73476989644 Active Tu Landeros MD Active REQUIP 2 MG TABS Take one tablet at bedtime prn ROPINIROLE HCL 29625568991 Active Tu Landeros MD Active KLOR-CON 10 10 MEQ CR-TABS TAKE 2 TABS DAILY POTASSIUM CHLORIDE 92897597115 Active Tu Landeros MD Active AMBIEN 10 MG TAB 1 tab by mouth at bedtime as needed for sleep AMBIEN 10 MG TAB 341882 ZOLPIDEM TARTRATE Inactive METFORMIN HCL 500 MG TABS 1 PO BID METFORMIN HCL 500 MG TABS 042536 METFORMIN HCL Inactive REGLAN 10 MG TAB 1 po TID PRN Nausea REGLAN 10 MG TAB 568684 METOCLOPRAMIDE HCL Inactive MECLIZINE HCL 25 MG CHEW TAB 1 four times a day as needed for dizziness 08/05 MECLIZINE HCL 25 MG CHEW TAB 247070 MECLIZINE HCL Inactive SOMA 350 MG TAB 1 po q 6 hours prn spasm SOMA 350 MG TAB 141643 CARISOPRODOL Inactive MELATONIN 5 MG TABS Take one by mouth daily MELATONIN 5 MG TABS 518338 MELATONIN Inactive MULTIVITAMINS TABS Take one by mouth daily MULTIVITAMINS TABS MULTIPLE VITAMIN Inactive LORTAB 5 5-500 MG TABS 1/2 to 1 tablet by mouth every 4 hours as needed for pain LORTAB 5 5-500 MG TABS HYDROCODONE- ACETAMINOPHEN Inactive XANAX 0.5 MG TABS 1 tablet every 6 hrs prn XANAX 0.5 MG TABS 306216 ALPRAZOLAM Inactive AUGMENTIN 875-125 MG TAB 1 tab by mouth twice daily with food AUGMENTIN 875-125 MG TAB 911165 AMOXICILLIN-POT CLAVULANATE Inactive ALPRAZOLAM 0.5 MG TABS 1 tab every 6hrs as needed ALPRAZOLAM 0.5 MG TABS 899948 ALPRAZOLAM Inactive SPIRONOLACTONE 25 MG TAB 0.5 tablet by mouth daily SPIRONOLACTONE 25 MG TAB 813760 SPIRONOLACTONE Inactive ACCU-CHEK KEYONA PLUS W/DEVICE KIT Use for testing bloodsugars three times daily as needed ACCU-CHEK KEYONA PLUS W/DEVICE KIT BLOOD GLUCOSE MONITORING SUPPL Inactive ACCU-CHEK KEYONA PLUS STRP Use for testing bloodsugars three times daily as needed ACCU-CHEK KEYONA PLUS STRP GLUCOSE BLOOD Inactive ACCU-CHEK FASTCLIX LANCETS MISC Use to check bloodsugar three times daily as needed ACCU-CHEK FASTCLIX LANCETS MISC 57137705715 LANCETS Inactive TRAMADOL HCL 50 MG TABS 1 tablets every 6 hours as needed for pain TRAMADOL HCL 50 MG TABS 402684 TRAMADOL HCL Inactive VENLAFAXINE HCL 75 MG TABS 1 po BID VENLAFAXINE HCL 75 MG TABS 903920 VENLAFAXINE HCL Inactive HYDROCODONE-ACETAMINOPHEN 5-500 MG TABS take one po Q 4-6 hours prn HYDROCODONE-ACETAMINOPHEN 5-500 MG TABS HYDROCODONE- ACETAMINOPHEN Inactive LORTAB 5 5-500 MG TABS 1/2 to 1 tablet by mouth every 4 hours as needed for pain LORTAB 5 5-500 MG TABS HYDROCODONE- ACETAMINOPHEN Inactive LAMISIL 250 MG TAB 1 po qd LAMISIL 250 MG TAB 073484 TERBINAFINE HCL Inactive VENLAFAXINE HCL 37.5 MG TABS 1 po BID VENLAFAXINE HCL 37.5 MG TABS 168596 VENLAFAXINE HCL Inactive CIPRO 500 MG TAB 1 tablet by mouth twice daily CIPRO 500 MG TAB 759216 CIPROFLOXACIN HCL Inactive VENLAFAXINE HCL 75 MG TABS 1 po BID VENLAFAXINE HCL 75 MG TABS 688799 VENLAFAXINE HCL Inactive SIMVASTATIN 40 MG TABS Take one by mouth daily SIMVASTATIN 40 MG TABS 535461 SIMVASTATIN Inactive OMEPRAZOLE 20 MG TBEC 1 PO 30 MIN BEFORE 1ST MEAL OMEPRAZOLE 20 MG TBEC 352614 OMEPRAZOLE Inactive FENOFIBRATE 145 MG TABS 1 po qd FENOFIBRATE 145 MG TABS 185126 FENOFIBRATE Inactive TRIAMCINOLONE ACETONIDE 0.1 % OINT Apply to affected areas TID for up to 2 weeks TRIAMCINOLONE ACETONIDE 0.1 % OINT 4964204 TRIAMCINOLONE ACETONIDE Inactive PREDNISONE 20 MG TAB 2 tabs daily for 3 days, 1 tab daily for 3 days, 1/2 tab daily for 2 days PREDNISONE 20 MG TAB 997144 PREDNISONE Inactive PREDNISONE 20 MG TAB 2 tabs daily for 3 days, 1 tab daily for 3 days, 1/2 tab daily for 2 days PREDNISONE 20 MG TAB 182563 PREDNISONE Inactive BACTRIM DS 800-160 MG TABS 1 po BID x 7 days BACTRIM DS 800-160 MG TABS SULFAMETHOXAZOLE-TRIMETHOPRIM Inactive Immunizations Vaccine Administration Date Value Standard Description Seasonal influenza vaccine, injectable, containing preservative, for > 3 years old (Afluria, FluLaval, Fluzone, Fluvirin, Fluarix, Agriflu(>=18 yo)) Fluzone (>3 yrs.) [[id number]] Influenza, seasonal, injectable influenza immunization (Flu Vax) has been administered 02/22/2012 influenza virus vaccine, unspecified formulation Seasonal influenza vaccine, injectable, containing preservative, for > 3 years old (Afluria, FluLaval, Fluzone, Fluvirin, Fluarix, Agriflu(>=18 yo)) Fluzone (>3 yrs.) [PUQ508] Influenza, seasonal, injectable Vital Signs Date Name [...] Panel - Chemistry sodium, serum 139 mmol/L 477-172 2008/11/27 blood glucose 128 mg/dL 65-110 urea nitrogen, blood 30 mg/dL 7-18 calcium, serum 9.6 mg/dL 8.5-10.1 chloride, serum 104 mmol/L 98-107 carbon dioxide, venous blood 29.9 mmol/L 21.0-32.0 creatinine, serum 1.50 mg/dL 0.60-1.30 potassium, serum 4.9 mmol/L 3.5-5.2 Lab Report: CBC W/ DIFF, CMP, TSH, PREALBUMIN - Chemistry carbon dioxide, venous blood 28 mmol/L creatinine, serum 1.20 mg/dL chloride, serum 104 mmol/L thyroid stimulating hormone, serum 0.38 u[iU]/mL potassium, serum 3.9 mmol/L aspartate aminotransferase (SGOT), serum 29 U/L alanine aminotransferase (SGPT), serum 35 U/L bilirubin, serum, total 0.4 mg/dL calcium, serum 9.3 mg/dL urea nitrogen, blood 13 mg/dL alkaline phosphatase, serum 57 U/L sodium, serum 141 mmol/L blood glucose 98 mg/dL Lab Report: CBC W/ DIFF, CMP, TSH, PREALBUMIN - Hematology hematocrit, blood 37.9 % hemoglobin, blood 12.3 g/dL platelet count 298 10*3/mm3 erythrocyte (RBC) count 4.10 10*6/mm3 leukocyte count, blood 7.9 10*3/mm3 mean corpuscular volume, RBC 92 fL red blood cell distribution width 11.5 % mean corpuscular hemoglobin, RBC 30.1 pg Lab Report: Comp. Metabolic Panel - Chemistry bilirubin, serum, total 0.20 mg/dL 0.00-1.00 aspartate aminotransferase (SGOT), serum 25 U/L 15-37 creatinine, serum 1.60 mg/dL 0.60-1.30 chloride, serum 103 mmol/L 98-107 carbon dioxide, venous blood 28.3 mmol/L 21.0-32.0 blood glucose 125 mg/dL 65-110 sodium, serum 139 mmol/L 466-193 2091/11/22 alkaline phosphatase, serum 89 U/L 50-136 urea nitrogen, blood 27 mg/dL 7-18 calcium, serum 9.2 mg/dL 8.5-10.1 potassium, serum 4.3 mmol/L 3.5-5.2 alanine aminotransferase (SGPT), serum 35 U/L 12-78 Lab Report: Comp. Metabolic Panel, Lipid Panel, HGBA1C - Chemistry calcium, serum 9.0 mg/dL 8.5-10.1 chloride, serum 105 mmol/L 98-107 chloride, serum 106 mmol/L 98-107 cholesterol, serum 133 mg/dL 757-902 5329/10/22 cholesterol, serum 139 mg/dL 518-844 4678/10/22 carbon dioxide, venous blood 31.8 mmol/L 21.0-32.0 urea nitrogen, blood 22 mg/dL 7-18 calcium, serum 8.9 mg/dL 8.5-10.1 alkaline phosphatase, serum 84 U/L 50-136 alkaline phosphatase, serum 86 U/L 50-136 urea nitrogen, blood 25 mg/dL 7-18 sodium, serum 142 mmol/L 564-542 2076/04/16 sodium, serum 144 mmol/L 621-824 5559/04/16 blood glucose 113 mg/dL 65-110 blood glucose 104 mg/dL 65-110 carbon dioxide, venous blood 29.9 mmol/L 21.0-32.0 creatinine, serum 1.10 mg/dL 0.60-1.30 creatinine, serum 1.30 mg/dL 0.60-1.30 HDL cholesterol, serum 40 mg/dL 32-96 HDL cholesterol, serum 38 mg/dL 32-96 hemoglobin A1C, blood, as % of total hemoglobin 7.1 % 4.3-6.0 hemoglobin A1C, blood, as % of total hemoglobin 6.2 % 4.3-6.0 LDL cholesterol, serum 67 mg/dL 0-130 LDL cholesterol, serum 65 mg/dL 0-130 potassium, serum 4.9 mmol/L 3.5-5.2 potassium, serum 4.2 mmol/L 3.5-5.2 aspartate aminotransferase (SGOT), serum 18 U/L 15-37 aspartate aminotransferase (SGOT), serum 24 U/L 15-37 alanine aminotransferase (SGPT), serum 36 U/L 12-78 alanine aminotransferase (SGPT), serum 21 U/L 12-78 bilirubin, serum, total 0.20 mg/dL 0.00-1.00 bilirubin, serum, total 0.30 mg/dL 0.00-1.00 triglyceride, serum, fasting 168 mg/dL 30-200 triglyceride, serum, fasting 142 mg/dL 30-200 Lab Report: MICROALBUMIN - Chemistry albumin/creatinine ratio, urine < 30 mg/g mg/g{creat} 0-29 Lab Report: MICROALBUMIN - Lab microalbumin, urine 10 0-19 Office Visit: 3 month f/u 302 - Chemistry LDL target level 100 mg/dL triglyceride, target level 200 mg/dL cholesterol, target level 200 mg/dL HDL cholesterol, serum, target level 35 mg/dL Office Visit: Consult for Abdominal Wounds - Chemistry HDL cholesterol, serum, target level 35 mg/dL triglyceride, target level 200 mg/dL cholesterol, target level 200 mg/dL LDL target level 100 mg/dL Encounters Code Encounter Date Provider Facility CPT-12581 Level 4 Est. Patient 09:45:25 CDT Tu Landeros MD [facility] CPT-34496 Level 4 Est. 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 Patient 14:09:06 CDT Tu Landeros MD [facility] CPT-31982 Level 3 Est. Patient 13:36:54 CDT Tu Landeros MD [facility] CPT-02254 Level 3 Est. Patient 08:59:14 CDT Tu Landeros MD [facility] [place] CPT-03879 Level 3 Est. Patient 13:48:35 CDT Fab Morales DO [facility] CPT-59917 Level 4 Est. Patient 10:05:48 CDT Tu Landeros MD [facility] CPT-74897 Level 3 Est. Patient 13:38:42 CDT Marek BANKS [facility] CPT-76641 Level 5 Est. Patient 08:08:39 CDT Jerrica FRANCIS [facility] CPT-05571 Level 4 Est. Patient 14:23:38 CDT Tu Landeros MD [facility] CPT-63218 Level 3 Est. Patient 11:44:04 CDT Tu Landeros MD [facility] CPT-32966 Level 3 Est. 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 Patient 12:42:49 CDT Tu Landeros MD [facility] CPT-00282 Level 3 Est. Patient 11:52:06 CDT Tu Landeros MD [facility] CPT-77763 Level 3 Est. Patient 13:58:11 CDT Tu Landeros MD [facility] CPT-06882 Level 3 Est. Patient 17:50:07 CDT Fab Morales DO [facility] CPT-04025 Level 3 Est. Patient 12:06:29 CDT Elvira Cervantes MD [facility] CPT-69386 Level 3 Est. Patient 15:50:32 CDT Tu Landeros MD [facility] CPT-12059 Level 4 Est. Patient 16:08:29 CDT Tu Landeros MD [facility] CPT-68799 Level 3 Est. Patient 16:04:19 CDT Tu Landeros MD [facility] CPT-21284 Level 3 Est. 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 Patient 16:24:02 A[employer]ICULTURE TEACHER Tu Landeros MD [facility] CPT-46522 Level 3 Est. 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 TEACHER Tu Landeros MD [facility] Procedures Code Procedure Name Date Entry Date Standard Description CPT-OV Office Visit 15:45:11 CDT CPT-000 Give Zostavax 14:09:06 CDT CPT-66451 Administration single or combination vaccine inc oral 15 :19:04 CDT CPT-80955 Zoster Vaccine (Zostavax) 15:19:04 CDT CPT-70740 Administration single or combination vaccine inc oral 20 :51:03 CDT CPT-23522 Influenza split virus > age 3 20:51:03 CDT CPT-97881 No Charge Offi Visit 14:52:03 CDT CPT-OV Office Visit 14:57:43 CDT CPT-OV Office Visit 15:22:32 CDT CPT-02349 Administration single or combination vaccine inc oral 11 :33:15 CDT CPT-48638 Influenza split virus > age 3 11:33:15 CDT
--- OUTSIDE RECORDS SUMMARY | 2018-04-25 19:15 | XMS REPORT | Clinical Summary ---
Author Author Admin, SACHI Clemons [facility] Address Unknown Phone Unavailable Allergies, Adverse Reactions, Alerts Allergy Name Reaction Description Start Date Severity Status Provider DANIELLE migraine h/a Critical Active Luisa HU migraine h/a Moderate No Longer Active uT [...] wound of abdominal wall, anterior , complicated HEALTH SCREENING ICD-V70.0 Inactive Elvira Cervantes MD [...] CRAMPS, NOCTURNAL ICD-729.82 Inactive Tu Landeros MD FATIGUE ICD-780.79 Inactive Tu Landeros MD 2012 LOCALIZED SUPERFICIAL SWELLING MASS OR LUMP ICD-782.2 Inactive Tu Landeros MD PRESSURE ULCER UNSPECIFIED SITE ICD-707.00 Inactive Tu Landeros MD ONYCHOMYCOSIS ICD-110.1 Inactive Tu Landeros MD CONTUSION OF UNSPECIFIED SITE ICD-924.9 Inactive Tu Landeros MD Medication List Medication Instructions Start Date Stop Date Generic Name NDC Status Provider Patient Instruction CARVEDILOL 12.5 MG TABS 1 po BID CARVEDILOL 13667234803 Active Tu Landeros MD Active CIPRO 500 MG TABS 1 bid x 14 days start 09-28-13 CIPROFLOXACIN HCL 61114915065 Active JASPREET Perez Active ALIGN 4 MG CAPS 1 tid PROBIOTIC PRODUCT 16620379488 Active JASPREET Perez Active BACTRIM DS 800-160 MG TABS 1 bid x 14 day start 09-28-13 SULFAMETHOXAZOLE-TRIMETHOPRIM 55139326806 Active JASPREET Perez Active GABAPENTIN 300 MG CAPS 1 tid GABAPENTIN 85936210142 Active JASPREET Perez Active SUPER B COMPLEX/VITAMIN C TABS 1 qd B COMPLEX-C 29170451023 Active JASPREET Perez Active TRILIPIX 135 MG CPDR 1 q hs CHOLINE FENOFIBRATE 97285491969 Active Tu Landeros MD Active FENOFIBRATE 145 MG TABS 1 po qd FENOFIBRATE 72155113160 No Longer Active JASPREET Perez Active OMEPRAZOLE 20 MG TBEC 1 PO 30 MIN BEFORE 1ST MEAL OMEPRAZOLE 19044360961 No Longer Active JASPREET Perez Active SIMVASTATIN 40 MG TABS Take one by mouth daily SIMVASTATIN 14360215746 No Longer Active JASPREET Perez Active GABAPENTIN 100 MG CAPS 1 po bid GABAPENTIN 33743105092 Active JASPREET Perez Active VENLAFAXINE HCL 37.5 MG TABS 1 bid VENLAFAXINE HCL 35321353712 Active JASPREET Perez Active VENLAFAXINE HCL 75 MG TABS 1 po BID VENLAFAXINE HCL 68622984074 No Longer Active JASPREET Perez Active HYDROCODONE-ACETAMINOPHEN 5-325 MG TABS 1 tab by mouth every 6 hours as needed for pain HYDROCODONE-ACETAMINOPHEN 19764516083 Active Tu Landeros MD Active METFORMIN HCL 500 MG TB24 1.5 po BID METFORMIN HCL 03237121998 Active Tu Landeros MD Active CIPRO 500 MG TAB 1 tablet by mouth twice daily CIPROFLOXACIN HCL 53916647349 No Longer Active Tu Landeros MD Active VENLAFAXINE HCL 37.5 MG TABS 1 po BID VENLAFAXINE HCL 73064885590 No Longer Active Suze Corey RMA Active [employer] STOOL SOFTENER 100 MG CAPS 1 tab daily DOCUSATE SODIUM 31970205880 Active Tu Landeros MD Active LAMISIL 250 MG TAB 1 po qd TERBINAFINE HCL 87291683070 No Longer Active Tu Landeros MD Active LORTAB 5 5-500 MG TABS 1/2 to 1 tablet by mouth every 4 hours as needed for pain HYDROCODONE-ACETAMINOPHEN 22593829284 No Longer Active Tu Landeros MD Active ENALAPRIL MALEATE 20 MG TABS 1.5 po qd ENALAPRIL MALEATE 03802035763 Active Tu Landeros MD Active HYDROCODONE-ACETAMINOPHEN 5-500 MG TABS take one po Q 4-6 hours prn HYDROCODONE-ACETAMINOPHEN 88754555819 No Longer Active Tu Landeros MD Active BACTRIM DS 800-160 MG TABS 1 po BID x 7 days SULFAMETHOXAZOLE-TRIMETHOPRIM 70203784245 No Longer Active Tu Landeros MD Active VENLAFAXINE HCL 75 MG TABS 1 po BID VENLAFAXINE HCL 96149384287 No Longer Active Elvira Cervantes MD PhD Active TRAMADOL HCL 50 MG TABS 1 tablets every 6 hours as needed for pain TRAMADOL HCL 77597446561 No Longer Active Tu Landeros MD Active TRUERESULT BLOOD GLUCOSE W/DEVICE KIT use to test blood sugar tid dx: 250.00 BLOOD GLUCOSE MONITORING SUPPL 37193656670 Active Tu Landeros MD Active TRUETEST TEST STRP test blood sugar three times daily dx: 250.00 GLUCOSE BLOOD 33634644203 Active Tu Landeros MD Active ACCU-CHEK FASTCLIX LANCETS MISC Use to check bloodsugar three times daily as needed LANCETS 53498146903 No Longer Active Tu Landeros MD Active ACCU-CHEK KEYONA PLUS STRP Use for testing bloodsugars three times daily as needed GLUCOSE BLOOD 78324094299 No Longer Active Tu Landeros MD Active ACCU-CHEK KEYONA PLUS W/DEVICE KIT Use for testing bloodsugars three times daily as needed BLOOD GLUCOSE MONITORING SUPPL 70935054128 No Longer Active Tu Landeros MD Active SPIRONOLACTONE 25 MG TAB 0.5 tablet by mouth daily SPIRONOLACTONE 17884454243 No Longer Active Tu Landeros MD Active ALPRAZOLAM 0.5 MG TABS 1 tab every 6hrs as needed ALPRAZOLAM 36963140562 No Longer Active Tu Landeros MD Active B-12 100 MCG TABS Take one by mouth daily CYANOCOBALAMIN 55333194563 Active Tu Landeros MD Active AUGMENTIN 875-125 MG TAB 1 tab by mouth twice daily with food AMOXICILLIN-POT CLAVULANATE 49199424161 No Longer Active Tu Landeros MD Active PREDNISONE 20 MG TAB 2 tabs daily for 3 days, 1 tab daily for 3 days, 1/2 tab daily for 2 days PREDNISONE 94269789085 No Longer Active Tu Landeros MD Active XANAX 0.5 MG TABS 1 tablet every 6 hrs prn ALPRAZOLAM 67374243612 No Longer Active Tu Landeros MD Active PREDNISONE 20 MG TAB 2 tabs daily for 3 days, 1 tab daily for 3 days, 1/2 tab daily for 2 days PREDNISONE 24461067697 No Longer Active Tu Landeros MD Active TRIAMCINOLONE ACETONIDE 0.1 % OINT Apply to affected areas TID for up to 2 weeks TRIAMCINOLONE ACETONIDE 13348240085 No Longer Active Tu Landeros MD Active LORTAB 5 5-500 MG TABS 1/2 to 1 tablet by mouth every 4 hours as needed for pain HYDROCODONE-ACETAMINOPHEN 48884686119 No Longer Active Tu Landeros MD Active MULTIVITAMINS TABS Take one by mouth daily MULTIPLE VITAMIN 28121692607 No Longer Active Tu Landeros MD Active MELATONIN 5 MG TABS Take one by mouth daily MELATONIN 38186705073 No Longer Active Tu Landeros MD Active SOMA 350 MG TAB 1 po q 6 hours prn spasm CARISOPRODOL 24188334513 No Longer Active Tu Landeros MD Active MECLIZINE HCL 25 MG CHEW TAB 1 four times a day as needed for dizziness 08/05 MECLIZINE HCL 68483109268 No Longer Active Fab Morales DO Active ANGEL BREEZE 2 TEST DISK test tid prn GLUCOSE BLOOD 23110251606 No Longer Active Negra Scott RN Active DICLOFENAC SODIUM 50 MG TBEC 1 tablet by mouth three times a day as needed DICLOFENAC SODIUM 94859867703 Active Tu Landeros MD Active REGLAN 10 MG TAB 1 po TID PRN [place] METOCLOPRAMIDE HCL 20368837343 No Longer Active Tu Landeros MD Active METFORMIN HCL 500 MG TABS 1 PO BID METFORMIN HCL 56746480321 No Longer Active Tu Landeros MD Active AMBIEN 10 MG TAB 1 tab by mouth at bedtime as needed for sleep ZOLPIDEM TARTRATE 35653934512 No Longer Active Tu Landeros MD Active FLUOXETINE HCL 40 MG CAPS 1 po q day FLUOXETINE HCL 20974967253 No Longer Active Mayra Terry Active FISH OIL 1000 MG CAPS Take one by mouth daily OMEGA-3 FATTY ACIDS 05421853031 Active Tu Landeros MD Active GLUCOSAMINE 500 MG TABS Take 2 tab po qd GLUCOSAMINE 32468647800 Active Tu Landeros MD Active TRILIPIX 135 MG CPDR 1 po qd CHOLINE FENOFIBRATE 67148503576 No Longer Active Tu Landeros MD Active ASPIRIN 81 MG CHEW TAB 1 tablet by mouth daily ASPIRIN 29334162741 Active Tu Landeros MD Active FUROSEMIDE 40 MG TAB 1 tablet by mouth daily FUROSEMIDE 04591582399 Active Tu Landeros MD Active REQUIP 2 MG TABS Take one tablet at bedtime prn ROPINIROLE HCL 20866439639 Active Tu Landeros MD Active KLOR-CON 10 10 MEQ CR-TABS TAKE 2 TABS DAILY POTASSIUM CHLORIDE 59644002479 Active Tu Landeros MD Active AMBIEN 10 MG TAB 1 tab by mouth at bedtime as needed for sleep AMBIEN 10 MG TAB 243811 ZOLPIDEM TARTRATE Inactive METFORMIN HCL 500 MG TABS 1 PO BID METFORMIN HCL 500 MG TABS 010375 METFORMIN HCL Inactive REGLAN 10 MG TAB 1 po TID PRN Nausea REGLAN 10 MG TAB 878332 METOCLOPRAMIDE HCL Inactive MECLIZINE HCL 25 MG CHEW TAB 1 four times a day as needed for dizziness 08/05 MECLIZINE HCL 25 MG CHEW TAB 605666 MECLIZINE HCL Inactive SOMA 350 MG TAB 1 po q 6 hours prn spasm SOMA 350 MG TAB 033530 CARISOPRODOL Inactive MELATONIN 5 MG TABS Take one by mouth daily MELATONIN 5 MG TABS 483890 MELATONIN Inactive MULTIVITAMINS TABS Take one by mouth daily MULTIVITAMINS TABS MULTIPLE VITAMIN Inactive LORTAB 5 5-500 MG TABS 1/2 to 1 tablet by mouth every 4 hours as needed for pain LORTAB 5 5-500 MG TABS HYDROCODONE- ACETAMINOPHEN Inactive XANAX 0.5 MG TABS 1 tablet every 6 hrs prn XANAX 0.5 MG TABS 853656 ALPRAZOLAM Inactive AUGMENTIN 875-125 MG TAB 1 tab by mouth twice daily with food AUGMENTIN 875-125 MG TAB 672563 AMOXICILLIN-POT CLAVULANATE Inactive ALPRAZOLAM 0.5 MG TABS 1 tab every 6hrs as needed ALPRAZOLAM 0.5 MG TABS 756604 ALPRAZOLAM Inactive SPIRONOLACTONE 25 MG TAB 0.5 tablet by mouth daily SPIRONOLACTONE 25 MG TAB 377545 SPIRONOLACTONE Inactive ACCU-CHEK KEYONA PLUS W/DEVICE KIT Use for testing bloodsugars three times daily as needed ACCU-CHEK KEYONA PLUS W/DEVICE KIT BLOOD GLUCOSE MONITORING SUPPL Inactive ACCU-CHEK KEYONA PLUS STRP Use for testing bloodsugars three times daily as needed ACCU-CHEK KEYONA PLUS STRP GLUCOSE BLOOD Inactive ACCU-CHEK FASTCLIX LANCETS MISC Use to check bloodsugar three times daily as needed ACCU-CHEK FASTCLIX LANCETS MISC 08784698366 LANCETS Inactive TRAMADOL HCL 50 MG TABS 1 tablets every 6 hours as needed for pain TRAMADOL HCL 50 MG TABS 366319 TRAMADOL HCL Inactive VENLAFAXINE HCL 75 MG TABS 1 po BID VENLAFAXINE HCL 75 MG TABS 451351 VENLAFAXINE HCL Inactive HYDROCODONE-ACETAMINOPHEN 5-500 MG TABS take one po Q 4-6 hours prn HYDROCODONE-ACETAMINOPHEN 5-500 MG TABS HYDROCODONE- ACETAMINOPHEN Inactive LORTAB 5 5-500 MG TABS 1/2 to 1 tablet by mouth every 4 hours as needed for pain LORTAB 5 5-500 MG TABS HYDROCODONE- ACETAMINOPHEN Inactive LAMISIL 250 MG TAB 1 po qd LAMISIL 250 MG TAB 801213 TERBINAFINE HCL Inactive VENLAFAXINE HCL 37.5 MG TABS 1 po BID VENLAFAXINE HCL 37.5 MG TABS 272296 VENLAFAXINE HCL Inactive CIPRO 500 MG TAB 1 tablet by mouth twice daily CIPRO 500 MG TAB 197959 CIPROFLOXACIN HCL Inactive VENLAFAXINE HCL 75 MG TABS 1 po BID VENLAFAXINE HCL 75 MG TABS 492423 VENLAFAXINE HCL Inactive SIMVASTATIN 40 MG TABS Take one by mouth daily SIMVASTATIN 40 MG TABS 193769 SIMVASTATIN Inactive OMEPRAZOLE 20 MG TBEC 1 PO 30 MIN BEFORE 1ST MEAL OMEPRAZOLE 20 MG TBEC 233509 OMEPRAZOLE Inactive FENOFIBRATE 145 MG TABS 1 po qd FENOFIBRATE 145 MG TABS 444590 FENOFIBRATE Inactive TRIAMCINOLONE ACETONIDE 0.1 % OINT Apply to affected areas TID for up to 2 weeks TRIAMCINOLONE ACETONIDE 0.1 % OINT 2245258 TRIAMCINOLONE ACETONIDE Inactive PREDNISONE 20 MG TAB 2 tabs daily for 3 days, 1 tab daily for 3 days, 1/2 tab daily for 2 days PREDNISONE 20 MG TAB 969260 PREDNISONE Inactive PREDNISONE 20 MG TAB 2 tabs daily for 3 days, 1 tab daily for 3 days, 1/2 tab daily for 2 days PREDNISONE 20 MG TAB 184346 PREDNISONE Inactive BACTRIM DS 800-160 MG TABS 1 po BID x 7 days BACTRIM DS 800-160 MG TABS SULFAMETHOXAZOLE-TRIMETHOPRIM Inactive Immunizations Vaccine Administration Date Value Standard Description Seasonal influenza vaccine, injectable, containing preservative, for > 3 years old (Afluria, FluLaval, Fluzone, Fluvirin, Fluarix, Agriflu(>=18 yo)) Fluzone (>3 yrs.) [[id number]] Influenza, seasonal, injectable influenza immunization (Flu Vax) has been administered 02/22/2012 influenza virus vaccine, unspecified formulation Seasonal influenza vaccine, injectable, containing preservative, for > 3 years old (Afluria, FluLaval, Fluzone, Fluvirin, Fluarix, Agriflu(>=18 yo)) Fluzone (>3 yrs.) [[id number]] Influenza, seasonal, injectable Vital Signs Date Name [...] as % of total hemoglobin 6.2 % Lab Report: Basic Metabolic Panel - Chemistry sodium, serum 139 mmol/L 472-386 8023/11/27 potassium, serum 4.9 mmol/L 3.5-5.2 chloride, serum [...] Panel - Chemistry sodium, serum 139 mmol/L 734-334 0783/11/22 potassium, serum 4.3 mmol/L 3.5-5.2 chloride, serum [...] HGBA1C - Chemistry sodium, serum 142 mmol/L 131-849 8830/10/22 potassium, serum 4.9 mmol/L 3.5-5.2 chloride, serum [...] 0.30 mg/dL 0.00-1.00 cholesterol, serum 139 mg/dL 135-950 0547/10/22 triglyceride, serum, fasting 168 mg/dL 30-200 HDL cholesterol, serum 40 mg/dL 32-96 LDL cholesterol, serum 65 mg/dL 0-130 hemoglobin A1C, blood, as % of total hemoglobin 6.2 % 4.3-6.0 sodium, serum 144 mmol/L 357-472 9964/04/16 potassium, serum 4.2 mmol/L 3.5-5.2 chloride, serum [...] 0.20 mg/dL 0.00-1.00 cholesterol, serum 133 mg/dL 084-651 8551/04/16 triglyceride, serum, fasting 142 mg/dL 30-200 HDL [...] mg/dL Encounters Code Encounter Date Provider Facility CPT-27599 Level 4 Est. Patient 09:45:25 CDT Tu Landeros MD [facility] CPT-23573 Level 4 Est. Patient 09:05:20 [employer] Tu Landeros MD [facility] CPT-70518 Level 4 Est. Patient 14:09:06 CDT Tu Landeros MD [facility] CPT-56805 Level 3 Est. Patient 13:36:54 CDT Tu Landeros MD [facility] CPT-40531 Level 3 Est. Patient 08:59:14 CDT Tu Landeros MD [facility] CPT-44110 Level 3 Est. Patient 13:48:35 CDT Fab Morales DO [facility] CPT-04551 Level 4 Est. Patient 10:05:48 CDT Tu Landreos MD [facility] CPT-91591 Level 3 Est. Patient 13:38:42 CDT Marek BANKS [facility] CPT-31241 Level 5 Est. Patient 08:08:39 CDT Jerrica FRANCIS [facility] CPT-69317 Level 4 Est. Patient 14:23:38 CDT Tu Landeros MD [facility] CPT-51956 Level 3 Est. Patient 11:44:04 CDT Tu Landeros MD [facility] CPT-96349 Level 3 Est. Patient 11:03:20 [employer]ITY [employer] Tu Landeros MD [facility] CPT-16405 Level 3 Est. Patient 11:03:14 COMM[employer]ITY [employer]REACH [employer] Tu Landeros MD [facility] CPT-72805 Level 3 Est. Patient 12:42:49 CDT Tu Landeros MD [facility] CPT-30353 Level 3 Est. Patient 11:52:06 CDT Tu Landeros MD [facility] CPT-90772 Level 3 Est. Patient 13:58:11 CDT Tu Landeros MD [facility] CPT-29554 Level 3 Est. Patient 17:50:07 CDT Fab Morales DO [facility] CPT-37973 Level 3 Est. Patient 12:06:29 CDT Elvira Cervantes MD [facility] CPT-91588 Level 3 Est. Patient 15:50:32 CDT Tu Landeros MD [facility] CPT-42233 Level 4 Est. Patient 16:08:29 CDT Tu Landeros MD [facility] CPT-06675 Level 3 Est. Patient 16:04:19 CDT Tu Landeros MD [facility] CPT-17699 Level 3 Est. Patient 11:22:30 [employer]ITY [employer] Tu Landeros MD [facility] CPT-58773 Level 4 Est. Patient 16:24:02 COMM[employer]ITY OUTREACH [employer] Tu Landeros MD [facility] CPT-55072 Level 3 Est. Patient 17:21:23 [employer]ITY [employer] Tu Landeros MD [facility] Procedures Code Procedure Name Date Entry Date Standard Description CPT-OV Office Visit 15:45:11 CDT CPT-000 Give Zostavax 14:09:06 CDT CPT-35572 Administration single or combination vaccine inc oral 15 :19:04 CDT CPT-71985 Zoster Vaccine (Zostavax) 15:19:04 CDT CPT-02778 Administration single or combination vaccine inc oral 20 :51:03 CDT CPT-50807 Influenza split virus > age 3 20:51:03 CDT CPT-87247 No Charge Offi Visit 14:52:03 CDT CPT-OV Office Visit 14:57:43 CDT CPT-OV Office Visit 15:22:32 CDT CPT-14434 Administration single or combination vaccine inc oral 11 :33:15 CDT CPT-82895 Influenza split virus > age 3 11:33:15 CDT
--- OUTSIDE RECORDS SUMMARY | 2018-04-25 19:17 | XMS REPORT | Clinical Summary ---
Author Author Admin, SACHI Clemons [facility] Address Unknown Phone Unavailable Allergies, Adverse [...] swelling, mass, or lump HEALTH SCREENING V70.0 Resolved Shaun Sy MD Routine general medical examination [...] and unspecified parts of trunk, complicated 879.7 Active Shaun Sy MD Open wound of other and unspecified parts of trunk, complicated Knee pain, left, acute 719.46 Active Fab Morales DO Pain in joint involving lower leg POSTMENOPAUSAL BLEEDING ICD-627.1 Inactive Elvira Cervantes MD [...] OR LUMP ICD-782.2 Inactive Tu Landeros MD HEALTH SCREENING ICD-V70.0 Inactive Shaun Sy MD ONYCHOMYCOSIS ICD-110.1 Inactive Tu Landeros MD Open wound of abdominal wall, anterior, complicated ICD-879.3 Inactive Tu Landeros MD Upper respiratory infection, viral ICD-465.9 Tessa Sy MD Medication List Medication Instructions Start Date Stop Date Generic Name NDC Status Provider Patient Instruction TRUEDRAW LANCING DEVICE MISC test blood sugar twice daily dx: 250.00 LANCET DEVICES 61217427401 Active Tu Landeros MD Active TRUEDRAW LANCING DEVICE MISC Test twice a day dx 250.0 LANCET DEVICES 88254109261 Active Tu Landeros MD Active TRUERESULT BLOOD GLUCOSE W/DEVICE KIT test blood sugar twice daily dx 250.00 BLOOD GLUCOSE MONITORING SUPPL 81653867077 Active Tu Landeros MD Active TRUETEST TEST INVITR STRP test blood sugar twice daily. DX 250.0 GLUCOSE BLOOD 89293487246 Active Tu Landeros MD Active EMBRACE BLOOD GLUCOSE TEST STRP test blood sugar twice daily DX 250.0 2014 GLUCOSE BLOOD 07472452411 No Longer Active Tu Landeros MD Active TRUETEST TEST STRP test blood sugar three times daily dx: 250.00 GLUCOSE BLOOD 02806096337 No Longer Active Suze OVGEL Active TRUERESULT BLOOD GLUCOSE W/DEVICE KIT use to test blood sugar tid dx: 250.00 BLOOD GLUCOSE MONITORING SUPPL 54363353811 No Longer Active Suze VOGEL Active ALIGN 4 MG CAPS 1 tid PROBIOTIC PRODUCT 42223793903 No Longer Active Shaun Sy MD Active CIPRO 500 MG TABS 1 bid x 14 days start 09-28-13 CIPROFLOXACIN HCL 83784496354 No Longer Active Shaun Sy MD Active TRAMADOL HCL 50 MG TABS 1-2 tablets every 6 hours as needed for pain TRAMADOL HCL 89886463551 Active Tu Landeros MD Active HYDROCODONE-ACETAMINOPHEN 5-325 MG TABS 1 tab by mouth every 6 hours as needed for pain HYDROCODONE-ACETAMINOPHEN 11422233405 No Longer Active Tu Landeros MD Active OMEPRAZOLE 20 MG CPDR 1 po q a.m. OMEPRAZOLE 08868764975 Active Tu Landeros MD Active GABAPENTIN 100 MG CAPS 1 po bid GABAPENTIN 32299057397 No Longer Active Tu Landeros MD Active B-12 100 MCG TABS Take one by mouth daily CYANOCOBALAMIN 45771205098 No Longer Active Tu Landeros MD Active GABAPENTIN 100 MG CAPS by mouth twice a day GABAPENTIN 78078092909 Active Tu Landeros MD Active BACTRIM DS 800-160 MG TABS 1 bid x 14 day start 09-28-13 SULFAMETHOXAZOLE-TRIMETHOPRIM 61591370136 No Longer Active Tu Landeros MD Active SIMVASTATIN 40 MG TABS 1 tab daily at bedtime SIMVASTATIN 58886785000 Active Tu Landeros MD Active CARVEDILOL 12.5 MG TABS 1 po BID CARVEDILOL 62193197337 Active Tu Landeros MD Active SUPER B COMPLEX/VITAMIN C TABS 1 qd B COMPLEX-C 05150827403 Active JASPREET Perez Active TRILIPIX 135 MG CPDR 1 q hs CHOLINE FENOFIBRATE 42520102938 Active Tu Landeros MD Active FENOFIBRATE 145 MG TABS 1 po qd FENOFIBRATE 53403387977 No Longer Active JASPREET Perez Active OMEPRAZOLE 20 MG TBEC 1 PO 30 MIN BEFORE 1ST MEAL OMEPRAZOLE 44245071106 No Longer Active JASPREET Perez Active SIMVASTATIN 40 MG TABS Take one by mouth daily SIMVASTATIN 16368601180 No Longer Active JASPREET Perez Active VENLAFAXINE HCL 37.5 MG TABS 1 bid VENLAFAXINE HCL 20816508646 Active Tu Landeros MD Active VENLAFAXINE HCL 75 MG TABS 1 po BID VENLAFAXINE HCL 68083726955 No Longer Active JASPREET Perez Active METFORMIN HCL 500 MG TB24 1.5 po BID METFORMIN HCL 61984075095 Active Tu Landeros MD Active CIPRO 500 MG TAB 1 tablet by mouth twice daily CIPROFLOXACIN HCL 97135888898 No Longer Active Tu Landeros MD Active VENLAFAXINE HCL 37.5 MG TABS 1 po BID VENLAFAXINE HCL 07131800076 No Longer Active Suze Nicole RMA Active [employer] STOOL SOFTENER 100 MG CAPS 1 tab daily DOCUSATE SODIUM 59931575020 Active Tu Landeros MD Active LAMISIL 250 MG TAB 1 po qd TERBINAFINE HCL 62577605622 No Longer Active Tu Landeros MD Active LORTAB 5 5-500 MG TABS 1/2 to 1 tablet by mouth every 4 hours as needed for pain HYDROCODONE-ACETAMINOPHEN 79734930705 No Longer Active Tu Landeros MD Active ENALAPRIL MALEATE 20 MG TABS 1.5 po qd ENALAPRIL MALEATE 19424519984 Active Tu Landeros MD Active HYDROCODONE-ACETAMINOPHEN 5-500 MG TABS take one po Q 4-6 hours prn HYDROCODONE-ACETAMINOPHEN 74983246827 No Longer Active Tu Landeros MD Active BACTRIM DS 800-160 MG TABS 1 po BID x 7 days SULFAMETHOXAZOLE-TRIMETHOPRIM 35904256256 No Longer Active Tu Landeros MD Active VENLAFAXINE HCL 75 MG TABS 1 po BID VENLAFAXINE HCL 73693846512 No Longer Active Elvira Cervantes MD PhD Active TRAMADOL HCL 50 MG TABS 1 tablets every 6 hours as needed for pain TRAMADOL HCL 90002188010 No Longer Active Tu Landeros MD Active ACCU-CHEK FASTCLIX LANCETS MISC Use to check bloodsugar three times daily as needed LANCETS 77466835843 No Longer Active Tu Landeros MD Active ACCU-CHEK KEYONA PLUS STRP Use for testing bloodsugars three times daily as needed GLUCOSE BLOOD 75521986449 No Longer Active Tu Landeros MD Active ACCU-CHEK KEYONA PLUS W/DEVICE KIT Use for testing bloodsugars three times daily as needed BLOOD GLUCOSE MONITORING SUPPL 14537905328 No Longer Active Tu Landeros MD Active SPIRONOLACTONE 25 MG TAB 0.5 tablet by mouth daily SPIRONOLACTONE 62127755536 No Longer Active Tu Landeros MD Active ALPRAZOLAM 0.5 MG TABS 1 tab every 6hrs as needed ALPRAZOLAM 11642306404 No Longer Active Tu Landeros MD Active AUGMENTIN 875-125 MG TAB 1 tab by mouth twice daily with food AMOXICILLIN-POT CLAVULANATE 01652796299 No Longer Active Tu Landeros MD Active PREDNISONE 20 MG TAB 2 tabs daily for 3 days, 1 tab daily for 3 days, 1/2 tab daily for 2 days PREDNISONE 14489357638 No Longer Active Tu Landeros MD Active XANAX 0.5 MG TABS 1 tablet every 6 hrs prn ALPRAZOLAM 64954949464 No Longer Active Tu Landeros MD Active PREDNISONE 20 MG TAB 2 tabs daily for 3 days, 1 tab daily for 3 days, 1/2 tab daily for 2 days PREDNISONE 42090238570 No Longer Active Tu Landeros MD Active TRIAMCINOLONE ACETONIDE 0.1 % OINT Apply to affected areas TID for up to 2 weeks TRIAMCINOLONE ACETONIDE 80554712747 No Longer Active Tu Landeros MD Active LORTAB 5 5-500 MG TABS 1/2 to 1 tablet by mouth every 4 hours as needed for pain HYDROCODONE-ACETAMINOPHEN 33557810330 No Longer Active Tu Landeros MD Active MULTIVITAMINS TABS Take one by mouth daily MULTIPLE VITAMIN 76015046384 No Longer Active Tu Landeros MD Active MELATONIN 5 MG TABS Take one by mouth daily MELATONIN 36747003516 No Longer Active Tu Landeros MD Active SOMA 350 MG TAB 1 po q 6 hours prn spasm CARISOPRODOL 21727399586 No Longer Active Tu Landeros MD Active MECLIZINE HCL 25 MG CHEW TAB 1 four times a day as needed for dizziness 08/05 MECLIZINE HCL 63807643306 No Longer Active Fab Morales DO Active ANGEL BREEZE 2 TEST DISK test tid prn GLUCOSE BLOOD 95428346419 No Longer Active Negra Scott RN Active DICLOFENAC SODIUM 50 MG TBEC 1 tablet by mouth three times a day as needed DICLOFENAC SODIUM 00397661866 Active Tu Landeros MD Active REGLAN 10 MG TAB 1 po TID PRN [place] METOCLOPRAMIDE HCL 60824841962 No Longer Active Tu Landeros MD Active METFORMIN HCL 500 MG TABS 1 PO BID METFORMIN HCL 71904072474 No Longer Active Tu Landeros MD Active AMBIEN 10 MG TAB 1 tab by mouth at bedtime as needed for sleep ZOLPIDEM TARTRATE 68033708004 No Longer Active Tu Landeros MD Active FLUOXETINE HCL 40 MG CAPS 1 po q day FLUOXETINE HCL 13511277457 No Longer Active Mayra [place] Active FISH OIL 1000 MG CAPS Take one by mouth daily OMEGA-3 FATTY ACIDS 85871401037 Active Tu Landeros MD Active GLUCOSAMINE 500 MG TABS Take 2 tab po qd GLUCOSAMINE 86937315142 Active Tu Landeros MD Active TRILIPIX 135 MG CPDR 1 po qd CHOLINE FENOFIBRATE 53363207691 No Longer Active Tu Landeros MD Active ASPIRIN 81 MG CHEW TAB 1 tablet by mouth daily ASPIRIN 44558050807 Active Tu Landeros MD Active FUROSEMIDE 40 MG TAB 1 tablet by mouth daily FUROSEMIDE 29752493186 Active Tu Landeros MD Active REQUIP 2 MG TABS Take one tablet at bedtime prn ROPINIROLE HCL 21638635856 Active Tu Landeros MD Active KLOR-CON 10 10 MEQ CR-TABS TAKE 2 TABS DAILY POTASSIUM CHLORIDE 38202632636 Active Lesli Kellogg COMPRESSOR OPERATOR ADJUSTER Active AMBIEN 10 MG TAB 1 tab by mouth at bedtime as needed for sleep AMBIEN 10 MG TAB 279728 ZOLPIDEM TARTRATE Inactive METFORMIN HCL 500 MG TABS 1 PO BID METFORMIN HCL 500 MG TABS 256662 METFORMIN HCL Inactive REGLAN 10 MG TAB 1 po TID PRN Nausea REGLAN 10 MG TAB 909516 METOCLOPRAMIDE HCL Inactive MECLIZINE HCL 25 MG CHEW TAB 1 four times a day as needed for dizziness 08/05 MECLIZINE HCL 25 MG CHEW TAB 424439 MECLIZINE HCL Inactive SOMA 350 MG TAB 1 po q 6 hours prn spasm SOMA 350 MG TAB 791225 CARISOPRODOL Inactive MELATONIN 5 MG TABS Take one by mouth daily MELATONIN 5 MG TABS 379589 MELATONIN Inactive MULTIVITAMINS TABS Take one by mouth daily MULTIVITAMINS TABS MULTIPLE VITAMIN Inactive LORTAB 5 5-500 MG TABS 1/2 to 1 tablet by mouth every 4 hours as needed for pain LORTAB 5 5-500 MG TABS HYDROCODONE- ACETAMINOPHEN Inactive XANAX 0.5 MG TABS 1 tablet every 6 hrs prn XANAX 0.5 MG TABS 753580 ALPRAZOLAM Inactive AUGMENTIN 875-125 MG TAB 1 tab by mouth twice daily with food AUGMENTIN 875-125 MG TAB 466154 AMOXICILLIN-POT CLAVULANATE Inactive ALPRAZOLAM 0.5 MG TABS 1 tab every 6hrs as needed ALPRAZOLAM 0.5 MG TABS 118856 ALPRAZOLAM Inactive SPIRONOLACTONE 25 MG TAB 0.5 tablet by mouth daily SPIRONOLACTONE 25 MG TAB 108228 SPIRONOLACTONE Inactive ACCU-CHEK KEYONA PLUS W/DEVICE KIT Use for testing bloodsugars three times daily as needed ACCU-CHEK KEYONA PLUS W/DEVICE KIT BLOOD GLUCOSE MONITORING SUPPL Inactive ACCU-CHEK KEYONA PLUS STRP Use for testing bloodsugars three times daily as needed ACCU-CHEK KEYONA PLUS STRP GLUCOSE BLOOD Inactive ACCU-CHEK FASTCLIX LANCETS MISC Use to check bloodsugar three times daily as needed ACCU-CHEK FASTCLIX LANCETS MISC 83241058188 LANCETS Inactive TRAMADOL HCL 50 MG TABS 1 tablets every 6 hours as needed for pain TRAMADOL HCL 50 MG TABS 651941 TRAMADOL HCL Inactive VENLAFAXINE HCL 75 MG TABS 1 po BID VENLAFAXINE HCL 75 MG TABS 205083 VENLAFAXINE HCL Inactive HYDROCODONE-ACETAMINOPHEN 5-500 MG TABS take one po Q 4-6 hours prn HYDROCODONE-ACETAMINOPHEN 5-500 MG TABS HYDROCODONE- ACETAMINOPHEN Inactive LORTAB 5 5-500 MG TABS 1/2 to 1 tablet by mouth every 4 hours as needed for pain LORTAB 5 5-500 MG TABS HYDROCODONE- ACETAMINOPHEN Inactive LAMISIL 250 MG TAB 1 po qd LAMISIL 250 MG TAB 001811 TERBINAFINE HCL Inactive VENLAFAXINE HCL 37.5 MG TABS 1 po BID VENLAFAXINE HCL 37.5 MG TABS 621182 VENLAFAXINE HCL Inactive CIPRO 500 MG TAB 1 tablet by mouth twice daily CIPRO 500 MG TAB 037354 CIPROFLOXACIN HCL Inactive VENLAFAXINE HCL 75 MG TABS 1 po BID VENLAFAXINE HCL 75 MG TABS 069206 VENLAFAXINE HCL Inactive SIMVASTATIN 40 MG TABS Take one by mouth daily SIMVASTATIN 40 MG TABS 242248 SIMVASTATIN Inactive OMEPRAZOLE 20 MG TBEC 1 PO 30 MIN BEFORE 1ST MEAL OMEPRAZOLE 20 MG TBEC 060575 OMEPRAZOLE Inactive FENOFIBRATE 145 MG TABS 1 po qd FENOFIBRATE 145 MG TABS 229232 FENOFIBRATE Inactive BACTRIM DS 800-160 MG TABS 1 bid x 14 day start 09-28-13 10 BACTRIM DS 800-160 MG TABS SULFAMETHOXAZOLE-TRIMETHOPRIM Inactive B-12 100 MCG TABS Take one by mouth daily B-12 100 MCG TABS CYANOCOBALAMIN Inactive GABAPENTIN 100 MG CAPS 1 po bid GABAPENTIN 100 MG CAPS 642068 GABAPENTIN Inactive HYDROCODONE-ACETAMINOPHEN 5-325 MG TABS 1 tab by mouth every 6 hours as needed for pain HYDROCODONE-ACETAMINOPHEN 5-325 MG TABS 764079 HYDROCODONE-ACETAMINOPHEN Inactive CIPRO 500 MG TABS 1 bid x 14 days start 09-28-13 CIPRO 500 MG TABS 005561 CIPROFLOXACIN HCL Inactive ALIGN 4 MG CAPS [...] 2 weeks TRIAMCINOLONE ACETONIDE 0.1 % OINT 1737995 TRIAMCINOLONE ACETONIDE Inactive PREDNISONE 20 MG TAB 2 tabs daily for 3 days, 1 tab daily for 3 days, 1/2 tab daily for 2 days PREDNISONE 20 MG TAB 712385 PREDNISONE Inactive PREDNISONE 20 MG TAB 2 tabs daily for 3 days, 1 tab daily for 3 days, 1/2 tab daily for 2 days PREDNISONE 20 MG TAB 268302 PREDNISONE Inactive BACTRIM DS 800-160 MG TABS 1 po BID x 7 days BACTRIM DS 800-160 MG TABS SULFAMETHOXAZOLE-TRIMETHOPRIM Inactive Immunizations Vaccine Administration Date Value Standard Description Seasonal influenza vaccine, injectable, containing preservative, for > 3 years old (Afluria, FluLaval, Fluzone, Fluvirin, Fluarix, Agriflu(>=18 yo)) Fluzone (>3 yrs.) [[id number]] Influenza, seasonal, injectable influenza immunization (Flu Vax) has been administered 02/22/2012 influenza virus vaccine, unspecified formulation Seasonal influenza vaccine, injectable, containing preservative, for > 3 years old (Afluria, FluLaval, Fluzone, Fluvirin, Fluarix, Agriflu(>=18 yo)) Fluzone (>3 yrs.) [[id number]] Influenza, seasonal, injectable Vital Signs Date Name Value Unit Range Description blood pressure, diastolic - 8462-4 79 mm[Hg] [...] of total hemoglobin 6.4 % Lab Report: Comp. Metabolic Panel, Lipid Panel, HGBA1C - Chemistry blood glucose 113 mg/dL 65-110 carbon dioxide, venous blood 29.9 mmol/L 21.0-32.0 chloride, serum 106 mmol/L 98-107 potassium, serum 4.2 mmol/L 3.5-5.2 sodium, serum 144 mmol/L 118-555 9023/04/16 urea nitrogen, blood 22 mg/dL 7-18 creatinine, serum 1.10 mg/dL 0.60-1.30 alanine aminotransferase (SGPT), serum 21 U/L 12-78 aspartate aminotransferase (SGOT), serum 18 U/L 15-37 alkaline phosphatase, serum 84 U/L 50-136 calcium, serum 8.9 mg/dL 8.5-10.1 bilirubin, serum, total 0.20 mg/dL 0.00-1.00 cholesterol, serum 133 mg/dL 857-368 1251/04/16 triglyceride, serum, fasting 142 mg/dL 30-200 HDL [...] mg/dL Encounters Code Encounter Date Provider Facility CPT-64579 Level 4 Est. Patient 14:27:39 DRAPERY AND UPHOLSTERY MEASURER Tu Landeros MD [facility] CPT-69323 Level 4 Est. Patient 09:45:25 CDT Tu Landeros MD [facility] CPT-39909 Level 4 Est. Patient 09:05:20 DRAPERY AND UPHOLSTERY MEASURER Tu Landeros MD [facility] CPT-64694 Level 4 Est. Patient 14:09:06 CDT Tu Landeros MD [facility] CPT-02880 Level 3 Est. Patient 13:36:54 CDT Tu Landeros MD [facility] CPT-44839 Level 3 Est. Patient 08:59:14 CDT Tu Landeros MD [facility] CPT-67625 Level 3 Est. Patient 13:48:35 CDT Fab Morales DO [facility] CPT-89732 Level 4 Est. Patient 10:05:48 CDT Tu Landeros MD [facility] CPT-82357 Level 3 Est. Patient 13:38:42 CDT Marek BANKS [facility] CPT-30337 Level 5 Est. Patient 08:08:39 CDT Maxjanelle Kellie FRANCIS [facility] CPT-47902 Level 4 Est. Patient 14:23:38 CDT Tu Landeros MD [facility] CPT-73497 Level 3 Est. Patient 11:44:04 CDT Tu Landeros MD [facility] CPT-50652 Level 3 Est. Patient 11:03:20 DRAPERY AND UPHOLSTERY MEASURER Tu Landeros MD [facility] CPT-51267 Level 3 Est. Patient 11:03:14 DRAPERY AND UPHOLSTERY MEASURER Tu Landeros MD [facility] CPT-38535 Level 3 Est. Patient 12:42:49 CDT Tu Landeros MD [facility] CPT-10621 Level 3 Est. Patient 11:52:06 CDT Tu Landeros MD [facility] CPT-41126 Level 3 Est. Patient 13:58:11 CDT Tu Landeros MD [facility] CPT-04055 Level 3 Est. Patient 17:50:07 CDT Fab Morales DO [facility] CPT-92596 Level 3 Est. Patient 12:06:29 CDT Elvira Cervantes MD, PhD [facility] CPT-92680 Level 3 Est. Patient 15:50:32 CDT Tu Landeros MD [facility] CPT-38585 Level 4 Est. Patient 16:08:29 CDT Tu Landeros MD [facility] CPT-84076 Level 3 Est. Patient 16:04:19 CDT Tu Landeros MD [facility] CPT-51318 Level 3 Est. Patient 11:22:30 DRAPERY AND UPHOLSTERY MEASURER Tu Landeros MD [facility] CPT-39313 Level 4 Est. Patient 16:24:02 DRAPERY AND UPHOLSTERY MEASURER Tu Landeros MD [facility] CPT-89596 Level 3 Est. Patient 17:21:23 DRAPERY AND UPHOLSTERY MEASURER Tu Landeros MD [facility] Procedures Code Procedure Name Date Entry Date Standard Description CPT-[id number] Asp/Joint Injection 15:51:27 DRAPERY AND UPHOLSTERY MEASURER CPT-OV Office Visit 15:52:02 DRAPERY AND UPHOLSTERY MEASURER CPT-OV Office Visit 15:45:11 CDT CPT-000 Give Zostavax 14:09:06 CDT CPT-88682 Administration single or combination vaccine inc oral 15 :19:04 CDT CPT-30116 Zoster Vaccine (Zostavax) 15:19:04 CDT CPT-41742 Administration single or combination vaccine inc oral 20 :51:03 CDT CPT-89065 Influenza split virus > age 3 20:51:03 CDT CPT-83675 No Charge Offi Visit 14:52:03 CDT CPT-OV Office Visit 14:57:43 CDT CPT-OV Office Visit 15:22:32 CDT CPT-82194 Administration single or combination vaccine inc oral 11 :33:15 CDT CPT-45934 Influenza split virus > age 3 11:33:15 CDT
--- OUTSIDE RECORDS SUMMARY | 2018-04-25 19:18 | XMS REPORT | Clinical Summary ---
Author Author Admin, SACHI Clemons [facility] Address Unknown Phone Unavailable Allergies, [...] other and unspecified parts of trunk, complicated POSTMENOPAUSAL BLEEDING ICD-627.1 Inactive Elvira Cervantes [...] MASS OR LUMP ICD-782.2 Tessa Landeros MD HEALTH SCREENING ICD-V70.0 Tessa Sy MD ONYCHOMYCOSIS ICD-110.1 Inactive Tu Landeros MD Open wound of abdominal wall, anterior, complicated ICD-879.3 Inactive Tu Landeros MD Upper respiratory infection, viral ICD-465.9 Tessa Sy MD Medication List Medication Instructions Start Date Stop Date Generic Name NDC Status Provider Patient Instruction ALIGN 4 MG CAPS 1 tid PROBIOTIC PRODUCT 44788392751 No Longer Active Shaun Sy MD Active CIPRO 500 MG TABS 1 bid x 14 days start 09-28-13 CIPROFLOXACIN HCL 62056509554 No Longer Active Shaun Sy MD Active TRAMADOL HCL 50 MG TABS 1-2 tablets every 6 hours as needed for pain TRAMADOL HCL 37886318758 Active Tu Landeros MD Active HYDROCODONE-ACETAMINOPHEN 5-325 MG TABS 1 tab by mouth every 6 hours as needed for pain HYDROCODONE-ACETAMINOPHEN 49455408255 No Longer Active Tu Landeros MD Active OMEPRAZOLE 20 MG CPDR 1 po q a.m. OMEPRAZOLE 33784468198 Active Tu Landeros MD Active GABAPENTIN 100 MG CAPS 1 po bid GABAPENTIN 64763147805 No Longer Active Tu Landeros MD Active B-12 100 MCG TABS Take one by mouth daily CYANOCOBALAMIN 37890862628 No Longer Active Tu Landeros MD Active GABAPENTIN 100 MG CAPS by mouth twice a day GABAPENTIN 07178668963 Active Tu Landeros MD Active BACTRIM DS 800-160 MG TABS 1 bid x 14 day start 09-28-13 SULFAMETHOXAZOLE-TRIMETHOPRIM 01356530517 No Longer Active Tu Landeros MD Active SIMVASTATIN 40 MG TABS 1 tab daily at bedtime SIMVASTATIN 86594396609 Active Tu Landeros MD Active CARVEDILOL 12.5 MG TABS 1 po BID CARVEDILOL 06551800343 Active Tu Landeros MD Active SUPER B COMPLEX/VITAMIN C TABS 1 qd B COMPLEX-C 74499580353 Active JASPREET Perez Active TRILIPIX 135 MG CPDR 1 q hs CHOLINE FENOFIBRATE 31201857818 Active Tu Landeros MD Active FENOFIBRATE 145 MG TABS 1 po qd FENOFIBRATE 92749252390 No Longer Active JASPREET Perez Active OMEPRAZOLE 20 MG TBEC 1 PO 30 MIN BEFORE 1ST MEAL OMEPRAZOLE 55161373740 No Longer Active JASPREET Perez Active SIMVASTATIN 40 MG TABS Take one by mouth daily SIMVASTATIN 67521538831 No Longer Active JASPREET Perez Active VENLAFAXINE HCL 37.5 MG TABS 1 bid VENLAFAXINE HCL 50468588504 Active Tu Landeros MD Active VENLAFAXINE HCL 75 MG TABS 1 po BID VENLAFAXINE HCL 93083622373 No Longer Active JASPREET Perez Active METFORMIN HCL 500 MG TB24 1.5 po BID METFORMIN HCL 11080893112 Active Tu Landeros MD Active CIPRO 500 MG TAB 1 tablet by mouth twice daily CIPROFLOXACIN HCL 77910989854 No Longer Active Tu Landeros MD Active VENLAFAXINE HCL 37.5 MG TABS 1 po BID VENLAFAXINE HCL 23318735143 No Longer Active Suzebianca NUNOA Active [employer] STOOL SOFTENER 100 MG CAPS 1 tab daily DOCUSATE SODIUM 88664365309 Active Tu Landeros MD Active LAMISIL 250 MG TAB 1 po qd TERBINAFINE HCL 67084346598 No Longer Active Tu Landeros MD Active LORTAB 5 5-500 MG TABS 1/2 to 1 tablet by mouth every 4 hours as needed for pain HYDROCODONE-ACETAMINOPHEN 09196116033 No Longer Active Tu Landeros MD Active ENALAPRIL MALEATE 20 MG TABS 1.5 po qd ENALAPRIL MALEATE 78898927871 Active Tu Landeros MD Active HYDROCODONE-ACETAMINOPHEN 5-500 MG TABS take one po Q 4-6 hours prn HYDROCODONE-ACETAMINOPHEN 43963293048 No Longer Active Tu Landeros MD Active BACTRIM DS 800-160 MG TABS 1 po BID x 7 days SULFAMETHOXAZOLE-TRIMETHOPRIM 11908491000 No Longer Active Tu Landeros MD Active VENLAFAXINE HCL 75 MG TABS 1 po BID VENLAFAXINE HCL 14073996848 No Longer Active Elvira Cervantes MD PhD Active TRAMADOL HCL 50 MG TABS 1 tablets every 6 hours as needed for pain TRAMADOL HCL 52085361772 No Longer Active Tu Landeros MD Active TRUERESULT BLOOD GLUCOSE W/DEVICE KIT use to test blood sugar tid dx: 250.00 BLOOD GLUCOSE MONITORING SUPPL 15642048797 Active Tu Landeros MD Active TRUETEST TEST STRP test blood sugar three times daily dx: 250.00 GLUCOSE BLOOD 04819905849 Active Tu Landeros MD Active ACCU-CHEK FASTCLIX LANCETS MISC Use to check bloodsugar three times daily as needed LANCETS 84145846376 No Longer Active Tu Landeros MD Active ACCU-CHEK KEYONA PLUS STRP Use for testing bloodsugars three times daily as needed GLUCOSE BLOOD 15923362115 No Longer Active Tu Landeros MD Active ACCU-CHEK KEYONA PLUS W/DEVICE KIT Use for testing bloodsugars three times daily as needed BLOOD GLUCOSE MONITORING SUPPL 42817253184 No Longer Active Tu Landeros MD Active SPIRONOLACTONE 25 MG TAB 0.5 tablet by mouth daily SPIRONOLACTONE 39004097536 No Longer Active Tu Landeros MD Active ALPRAZOLAM 0.5 MG TABS 1 tab every 6hrs as needed ALPRAZOLAM 28894918192 No Longer Active Tu Landeros MD Active AUGMENTIN 875-125 MG TAB 1 tab by mouth twice daily with food AMOXICILLIN-POT CLAVULANATE 50213390396 No Longer Active Tu Landeros MD Active PREDNISONE 20 MG TAB 2 tabs daily for 3 days, 1 tab daily for 3 days, 1/2 tab daily for 2 days PREDNISONE 54360652015 No Longer Active Tu Landeros MD Active XANAX 0.5 MG TABS 1 tablet every 6 hrs prn ALPRAZOLAM 31012755862 No Longer Active Tu Landeros MD Active PREDNISONE 20 MG TAB 2 tabs daily for 3 days, 1 tab daily for 3 days, 1/2 tab daily for 2 days PREDNISONE 38831667869 No Longer Active Tu Landeros MD Active TRIAMCINOLONE ACETONIDE 0.1 % OINT Apply to affected areas TID for up to 2 weeks TRIAMCINOLONE ACETONIDE 30503060907 No Longer Active Tu Landeros MD Active LORTAB 5 5-500 MG TABS 1/2 to 1 tablet by mouth every 4 hours as needed for pain HYDROCODONE-ACETAMINOPHEN 36942943484 No Longer Active Tu Landeros MD Active MULTIVITAMINS TABS Take one by mouth daily MULTIPLE VITAMIN 49835228911 No Longer Active Tu Landeros MD Active MELATONIN 5 MG TABS Take one by mouth daily MELATONIN 23640686500 No Longer Active Tu Landeros MD Active SOMA 350 MG TAB 1 po q 6 hours prn spasm CARISOPRODOL 76869290924 No Longer Active Tu Landeros MD Active MECLIZINE HCL 25 MG CHEW TAB 1 four times a day as needed for dizziness 08/05 MECLIZINE HCL 37611912389 No Longer Active Fab Morales DO Active ANGEL BREEZE 2 TEST DISK test tid prn GLUCOSE BLOOD 60297082625 No Longer Active Negra Scott RN Active DICLOFENAC SODIUM 50 MG TBEC 1 tablet by mouth three times a day as needed DICLOFENAC SODIUM 62658164692 Active Tu Landeros MD Active REGLAN 10 MG TAB 1 po TID PRN [place] METOCLOPRAMIDE HCL 29732939204 No Longer Active Tu Landeros MD Active METFORMIN HCL 500 MG TABS 1 PO BID METFORMIN HCL 58824938779 No Longer Active Tu Landeros MD Active AMBIEN 10 MG TAB 1 tab by mouth at bedtime as needed for sleep ZOLPIDEM TARTRATE 80909384450 No Longer Active Tu Landeros MD Active FLUOXETINE HCL 40 MG CAPS 1 po q day FLUOXETINE HCL 15934397334 No Longer Active Mayra Terry Active FISH OIL 1000 MG CAPS Take one by mouth daily OMEGA-3 FATTY ACIDS 79838770391 Active Tu Landreos MD Active GLUCOSAMINE 500 MG TABS Take 2 tab po qd GLUCOSAMINE 55644554900 Active Tu Landeros MD Active TRILIPIX 135 MG CPDR 1 po qd CHOLINE FENOFIBRATE 25551100504 No Longer Active Tu Landeros MD Active ASPIRIN 81 MG CHEW TAB 1 tablet by mouth daily ASPIRIN 76553150761 Active Tu Landeros MD Active FUROSEMIDE 40 MG TAB 1 tablet by mouth daily FUROSEMIDE 79755947245 Active Tu Landeros MD Active REQUIP 2 MG TABS Take one tablet at bedtime prn ROPINIROLE HCL 13913190966 Active Tu Landeros MD Active KLOR-CON 10 10 MEQ CR-TABS TAKE 2 TABS DAILY POTASSIUM CHLORIDE 22157062637 Active Lesli Kellogg ROUGE MIXER Active AMBIEN 10 MG TAB 1 tab by mouth at bedtime as needed for sleep AMBIEN 10 MG TAB 756351 ZOLPIDEM TARTRATE Inactive METFORMIN HCL 500 MG TABS 1 PO BID METFORMIN HCL 500 MG TABS 797780 METFORMIN HCL Inactive REGLAN 10 MG TAB 1 po TID PRN [place]ausea REGLAN 10 MG TAB 372890 METOCLOPRAMIDE HCL Inactive MECLIZINE HCL 25 MG CHEW TAB 1 four times a day as needed for dizziness 08/05 MECLIZINE HCL 25 MG CHEW TAB 098662 MECLIZINE HCL Inactive SOMA 350 MG TAB 1 po q 6 hours prn spasm SOMA 350 MG TAB 903851 CARISOPRODOL Inactive MELATONIN 5 MG TABS Take one by mouth daily MELATONIN 5 MG TABS 952736 MELATONIN Inactive MULTIVITAMINS TABS Take one by mouth daily MULTIVITAMINS TABS MULTIPLE VITAMIN Inactive LORTAB 5 5-500 MG TABS 1/2 to 1 tablet by mouth every 4 hours as needed for pain LORTAB 5 5-500 MG TABS HYDROCODONE- ACETAMINOPHEN Inactive XANAX 0.5 MG TABS 1 tablet every 6 hrs prn XANAX 0.5 MG TABS 049465 ALPRAZOLAM Inactive AUGMENTIN 875-125 MG TAB 1 tab by mouth twice daily with food AUGMENTIN 875-125 MG TAB 304227 AMOXICILLIN-POT CLAVULANATE Inactive ALPRAZOLAM 0.5 MG TABS 1 tab every 6hrs as needed ALPRAZOLAM 0.5 MG TABS 177817 ALPRAZOLAM Inactive SPIRONOLACTONE 25 MG TAB 0.5 tablet by mouth daily SPIRONOLACTONE 25 MG TAB 353520 SPIRONOLACTONE Inactive ACCU-CHEK KEYONA PLUS W/DEVICE KIT Use for testing bloodsugars three times daily as needed ACCU-CHEK KEYONA PLUS W/DEVICE KIT BLOOD GLUCOSE MONITORING SUPPL Inactive ACCU-CHEK KEYONA PLUS STRP Use for testing bloodsugars three times daily as needed ACCU-CHEK KEYONA PLUS STRP GLUCOSE BLOOD Inactive ACCU-CHEK FASTCLIX LANCETS MISC Use to check bloodsugar three times daily as needed ACCU-CHEK FASTCLIX LANCETS MISC 67620848076 LANCETS Inactive TRAMADOL HCL 50 MG TABS 1 tablets every 6 hours as needed for pain TRAMADOL HCL 50 MG TABS 448790 TRAMADOL HCL Inactive VENLAFAXINE HCL 75 MG TABS 1 po BID VENLAFAXINE HCL 75 MG TABS 984435 VENLAFAXINE HCL Inactive HYDROCODONE-ACETAMINOPHEN 5-500 MG TABS take one po Q 4-6 hours prn HYDROCODONE-ACETAMINOPHEN 5-500 MG TABS HYDROCODONE- ACETAMINOPHEN Inactive LORTAB 5 5-500 MG TABS 1/2 to 1 tablet by mouth every 4 hours as needed for pain LORTAB 5 5-500 MG TABS HYDROCODONE- ACETAMINOPHEN Inactive LAMISIL 250 MG TAB 1 po qd LAMISIL 250 MG TAB 685349 TERBINAFINE HCL Inactive VENLAFAXINE HCL 37.5 MG TABS 1 po BID VENLAFAXINE HCL 37.5 MG TABS 802310 VENLAFAXINE HCL Inactive CIPRO 500 MG TAB 1 tablet by mouth twice daily CIPRO 500 MG TAB 619679 CIPROFLOXACIN HCL Inactive VENLAFAXINE HCL 75 MG TABS 1 po BID VENLAFAXINE HCL 75 MG TABS 039321 VENLAFAXINE HCL Inactive SIMVASTATIN 40 MG TABS Take one by mouth daily SIMVASTATIN 40 MG TABS 808365 SIMVASTATIN Inactive OMEPRAZOLE 20 MG TBEC 1 PO 30 MIN BEFORE 1ST MEAL OMEPRAZOLE 20 MG TBEC 577425 OMEPRAZOLE Inactive FENOFIBRATE 145 MG TABS 1 po qd FENOFIBRATE 145 MG TABS 583550 FENOFIBRATE Inactive BACTRIM DS 800-160 MG TABS 1 bid x 14 day start 09-28-13 BACTRIM DS 800-160 MG TABS SULFAMETHOXAZOLE-TRIMETHOPRIM Inactive B-12 100 MCG TABS Take one by mouth daily B-12 100 MCG TABS CYANOCOBALAMIN Inactive GABAPENTIN 100 MG CAPS 1 po bid GABAPENTIN 100 MG CAPS 612074 GABAPENTIN Inactive HYDROCODONE-ACETAMINOPHEN 5-325 MG TABS 1 tab by mouth every 6 hours as needed for pain HYDROCODONE-ACETAMINOPHEN 5-325 MG TABS 610712 HYDROCODONE-ACETAMINOPHEN Inactive CIPRO 500 MG TABS 1 bid x 14 days start 09-28-13 CIPRO 500 MG TABS 730239 CIPROFLOXACIN HCL Inactive ALIGN 4 MG CAPS 1 tid ALIGN 4 MG CAPS PROBIOTIC PRODUCT Inactive TRIAMCINOLONE ACETONIDE 0.1 % OINT Apply to affected areas TID for up to 2 weeks TRIAMCINOLONE ACETONIDE 0.1 % OINT 3787867 TRIAMCINOLONE ACETONIDE Inactive PREDNISONE 20 MG TAB 2 tabs daily for 3 days, 1 tab daily for 3 days, 1/2 tab daily for 2 days PREDNISONE 20 MG TAB 035910 PREDNISONE Inactive PREDNISONE 20 MG TAB 2 tabs daily for 3 days, 1 tab daily for 3 days, 1/2 tab daily for 2 days PREDNISONE 20 MG TAB 307592 PREDNISONE Inactive BACTRIM DS 800-160 MG TABS 1 po BID x 7 days BACTRIM DS 800-160 MG TABS SULFAMETHOXAZOLE-TRIMETHOPRIM Inactive Immunizations Vaccine Administration Date Value Standard Description Seasonal influenza vaccine, injectable, containing preservative, for > 3 years old (Afluria, FluLaval, Fluzone, Fluvirin, Fluarix, Agriflu(>=18 yo)) Fluzone (>3 yrs.) [[id number]] Influenza, seasonal, injectable influenza immunization (Flu Vax) has been administered 02/22/2012 influenza virus vaccine, unspecified formulation Seasonal influenza vaccine, injectable, containing preservative, for > 3 years old (Afluria, FluLaval, Fluzone, Fluvirin, Fluarix, Agriflu(>=18 yo)) Fluzone (>3 yrs.) [[id number]] Influenza, seasonal, injectable Vital Signs Date Name Value Unit Range Description blood pressure, diastolic - 8462-4 75 mm[Hg] [...] E&M - 3141-9 312.13 [lb_av] Weight Measured Diagnostic Results Date Name Value Unit Range Description Chart Maintenance: Outside labs entered on flowsheet - Chemistry hemoglobin A1C, blood, as % of total hemoglobin 6.2 % hemoglobin A1C, blood, as % of total hemoglobin 6.4 % Lab Report: CBC W/ DIFF, CMP, TSH, [...] count 298 10*3/mm3 Lab Report: Comp. Metabolic Panel, Lipid Panel, HGBA1C - Chemistry sodium, serum 144 mmol/L 970-303 0568/04/16 potassium, serum 4.2 mmol/L 3.5-5.2 chloride, serum [...] 0.20 mg/dL 0.00-1.00 cholesterol, serum 133 mg/dL 404-690 4317/04/16 triglyceride, serum, fasting 142 mg/dL 30-200 HDL [...] mg/dL Encounters Code Encounter Date Provider Facility CPT-48324 Level 4 Est. Patient 14:27:39 SCRAP IR[employer] CUTTER Tu Landeros MD [facility] CPT-71808 Level 4 Est. Patient 09:45:25 CDT Tu Landeros MD [facility] CPT-49740 Level 4 Est. Patient 09:05:20 SCRAP IRON CUTTER Tu Landeros MD [facility] CPT-69174 Level 4 Est. Patient 14:09:06 CDT Tu Landeros MD [facility] CPT-95235 Level 3 Est. Patient 13:36:54 CDT Tu Landeros MD [facility] CPT-88980 Level 3 Est. Patient 08:59:14 CDT Tu Landeros MD [facility] CPT-44345 Level 3 Est. Patient 13:48:35 CDT Fab Moraels DO [facility] CPT-51093 Level 4 Est. Patient 10:05:48 CDT Tu Landeros MD [facility] CPT-04462 Level 3 Est. Patient 13:38:42 CDT Marek BANKS [facility] CPT-43147 Level 5 Est. Patient 08:08:39 CDT Jerrica Hopkins TITO [facility] CPT-06491 Level 4 Est. Patient 14:23:38 CDT Tu Landeros MD [facility] CPT-99102 Level 3 Est. Patient 11:44:04 CDT Tu Landeros MD [facility] CPT-93831 Level 3 Est. Patient 11:03:20 SCRAP IR[employer] C[employer]TER Tu Landeros MD [facility] CPT-19561 Level 3 Est. Patient 11:03:14 SCRAP IR[employer] CUTTER Tu Landeros MD [facility] CPT-55552 Level 3 Est. Patient 12:42:49 CDT Tu Landeros MD [facility] CPT-23881 Level 3 Est. Patient 11:52:06 CDT Tu Landeros MD [facility] CPT-91183 Level 3 Est. Patient 13:58:11 CDT Tu Landeros MD [facility] CPT-77494 Level 3 Est. Patient 17:50:07 CDT Fab Morales DO [facility] CPT-16486 Level 3 Est. Patient 12:06:29 CDT Elvira Cervantes MD [facility] CPT-62451 Level 3 Est. Patient 15:50:32 CDT Tu Landeros MD [facility] CPT-15391 Level 4 Est. Patient 16:08:29 CDT Tu Landeros MD [facility] CPT-82128 Level 3 Est. Patient 16:04:19 CDT Tu Landeros MD [facility] CPT-83947 Level 3 Est. Patient 11:22:30 SCRAP IR[employer] CUTTER Tu Landeros MD [facility] CPT-20891 Level 4 Est. Patient 16:24:02 SCRAP IR[employer] C[employer]TER Tu Landeros MD [facility] CPT-81808 Level 3 Est. Patient 17:21:23 SCRAP IR[employer] C[employer]TER Tu Landeros MD [facility] Procedures Code Procedure Name Date Entry Date Standard Description CPT-OV Office Visit 15:52:02 S[employer]AP IR[employer] C[employer]TER CPT-OV Office Visit 15:45:11 CDT CPT-000 Give Zostavax 14:09:06 CDT CPT-99506 Administration single or combination vaccine inc oral 15 :19:04 CDT CPT-28474 Zoster Vaccine (Zostavax) 15:19:04 CDT CPT-44810 Administration single or combination vaccine inc oral 20 :51:03 CDT CPT-38901 Influenza split virus > age 3 20:51:03 CDT CPT-29070 No Charge Offi Visit 14:52:03 CDT CPT-OV Office Visit 14:57:43 CDT CPT-OV Office Visit 15:22:32 CDT CPT-33414 Administration single or combination vaccine inc oral 11 :33:15 CDT CPT-00982 Influenza split virus > age 3 11:33:15 CDT
--- OUTSIDE RECORDS SUMMARY | 2018-04-25 19:19 | XMS REPORT | Clinical Summary ---
Author Author Admin, SACHI Clemons [facility] Address Unknown Phone Unavailable Allergies, Adverse [...] 12.5 MG TABS 1 po BID CARVEDILOL 59304035421 Active Tu Landeros MD Active CIPRO 500 MG TABS 1 bid x 14 days start 09-28-13 CIPROFLOXACIN HCL 61503962788 Active JASPREET Perez Active ALIGN 4 MG CAPS 1 tid PROBIOTIC PRODUCT 61531559670 Active JASPREET Perez Active BACTRIM DS 800-160 MG TABS 1 bid x 14 day start 09-28-13 SULFAMETHOXAZOLE-TRIMETHOPRIM 08819213031 Active JASPREET Perez Active GABAPENTIN 300 MG CAPS 1 tid GABAPENTIN 73029461829 Active JASPREET Perez Active SUPER B COMPLEX/VITAMIN C TABS 1 qd B COMPLEX-C 18479904067 Active JASPREET Perez Active TRILIPIX 135 MG CPDR 1 q hs CHOLINE FENOFIBRATE 83457565375 Active Tu Landeros MD Active FENOFIBRATE 145 MG TABS 1 po qd FENOFIBRATE 65535857110 No Longer Active JASPREET Perez Active OMEPRAZOLE 20 MG TBEC 1 PO 30 MIN BEFORE 1ST MEAL OMEPRAZOLE 61120511021 No Longer Active JASPREET Perez Active SIMVASTATIN 40 MG TABS Take one by mouth daily SIMVASTATIN 12371802051 No Longer Active JASPREET Perez Active GABAPENTIN 100 MG CAPS 1 po bid GABAPENTIN 43520067566 Active JASPREET Perez Active VENLAFAXINE HCL 37.5 MG TABS 1 bid VENLAFAXINE HCL 70709887277 Active JASPREET Perez Active VENLAFAXINE HCL 75 MG TABS 1 po BID VENLAFAXINE HCL 15238695613 No Longer Active JASPREET Perez Active HYDROCODONE-ACETAMINOPHEN 5-325 MG TABS 1 tab by mouth every 6 hours as needed for pain HYDROCODONE-ACETAMINOPHEN 20376599777 Active Tu Landeros MD Active METFORMIN HCL 500 MG TB24 1.5 po BID METFORMIN HCL 70547179175 Active Tu Landeros MD Active CIPRO 500 MG TAB 1 tablet by mouth twice daily CIPROFLOXACIN HCL 70600543305 No Longer Active Tu Landeros MD Active VENLAFAXINE HCL 37.5 MG TABS 1 po BID VENLAFAXINE HCL 17714849691 No Longer Active Suze Corey RMA Active [employer] STOOL SOFTENER 100 MG CAPS 1 tab daily DOCUSATE SODIUM 44303972285 Active Tu Landeros MD Active LAMISIL 250 MG TAB 1 po qd TERBINAFINE HCL 45476918015 No Longer Active Tu Landeros MD Active LORTAB 5 5-500 MG TABS 1/2 to 1 tablet by mouth every 4 hours as needed for pain HYDROCODONE-ACETAMINOPHEN 06966667977 No Longer Active Tu Landeros MD Active ENALAPRIL MALEATE 20 MG TABS 1.5 po qd ENALAPRIL MALEATE 52396842318 Active Tu Landeros MD Active HYDROCODONE-ACETAMINOPHEN 5-500 MG TABS take one po Q 4-6 hours prn HYDROCODONE-ACETAMINOPHEN 30346832783 No Longer Active Tu Landeros MD Active BACTRIM DS 800-160 MG TABS 1 po BID x 7 days SULFAMETHOXAZOLE-TRIMETHOPRIM 18809579631 No Longer Active Tu Landeros MD Active VENLAFAXINE HCL 75 MG TABS 1 po BID VENLAFAXINE HCL 03674527750 No Longer Active Elvira Cervantes MD PhD Active TRAMADOL HCL 50 MG TABS 1 tablets every 6 hours as needed for pain TRAMADOL HCL 09290529301 No Longer Active Tu Landeros MD Active TRUERESULT BLOOD GLUCOSE W/DEVICE KIT use to test blood sugar tid dx: 250.00 BLOOD GLUCOSE MONITORING SUPPL 59723709457 Active Tu Landeros MD Active TRUETEST TEST STRP test blood sugar three times daily dx: 250.00 GLUCOSE BLOOD 35182893434 Active Tu Landeros MD Active ACCU-CHEK FASTCLIX LANCETS MISC Use to check bloodsugar three times daily as needed LANCETS 31852412332 No Longer Active Tu Landeros MD Active ACCU-CHEK KEYONA PLUS STRP Use for testing bloodsugars three times daily as needed GLUCOSE BLOOD 09077497840 No Longer Active Tu Landeros MD Active ACCU-CHEK KEYONA PLUS W/DEVICE KIT Use for testing bloodsugars three times daily as needed BLOOD GLUCOSE MONITORING SUPPL 91731806122 No Longer Active Tu Landeros MD Active SPIRONOLACTONE 25 MG TAB 0.5 tablet by mouth daily SPIRONOLACTONE 12843651123 No Longer Active Tu Landeros MD Active ALPRAZOLAM 0.5 MG TABS 1 tab every 6hrs as needed ALPRAZOLAM 38677056391 No Longer Active Tu Landeros MD Active B-12 100 MCG TABS Take one by mouth daily CYANOCOBALAMIN 09172957601 Active Tu Landeros MD Active AUGMENTIN 875-125 MG TAB 1 tab by mouth twice daily with food AMOXICILLIN-POT CLAVULANATE 79419483788 No Longer Active Tu Landeros MD Active PREDNISONE 20 MG TAB 2 tabs daily for 3 days, 1 tab daily for 3 days, 1/2 tab daily for 2 days PREDNISONE 03881357369 No Longer Active Tu Landeros MD Active XANAX 0.5 MG TABS 1 tablet every 6 hrs prn ALPRAZOLAM 07290582253 No Longer Active Tu Landeros MD Active PREDNISONE 20 MG TAB 2 tabs daily for 3 days, 1 tab daily for 3 days, 1/2 tab daily for 2 days PREDNISONE 69121909022 No Longer Active Tu Landeros MD Active TRIAMCINOLONE ACETONIDE 0.1 % OINT Apply to affected areas TID for up to 2 weeks TRIAMCINOLONE ACETONIDE 88113336752 No Longer Active Tu Landeros MD Active LORTAB 5 5-500 MG TABS 1/2 to 1 tablet by mouth every 4 hours as needed for pain HYDROCODONE-ACETAMINOPHEN 34359995568 No Longer Active Tu Landeros MD Active MULTIVITAMINS TABS Take one by mouth daily MULTIPLE VITAMIN 63634252373 No Longer Active Tu Landeros MD Active MELATONIN 5 MG TABS Take one by mouth daily MELATONIN 58967879749 No Longer Active Tu Landeros MD Active SOMA 350 MG TAB 1 po q 6 hours prn spasm CARISOPRODOL 97323572208 No Longer Active Tu Landeros MD Active MECLIZINE HCL 25 MG CHEW TAB 1 four times a day as needed for dizziness 08/05 MECLIZINE HCL 68551616253 No Longer Active Fab Morales DO Active ANGEL BREEZE 2 TEST DISK test tid prn GLUCOSE BLOOD 10679575218 No Longer Active Negra Scott RN Active DICLOFENAC SODIUM 50 MG TBEC 1 tablet by mouth three times a day as needed DICLOFENAC SODIUM 16397550694 Active Tu Landeros MD Active REGLAN 10 MG TAB 1 po TID PRN [place] METOCLOPRAMIDE HCL 63843290995 No Longer Active Tu Landeros MD Active METFORMIN HCL 500 MG TABS 1 PO BID METFORMIN HCL 56376729239 No Longer Active Tu Landeros MD Active AMBIEN 10 MG TAB 1 tab by mouth at bedtime as needed for sleep ZOLPIDEM TARTRATE 13442843798 No Longer Active Tu Landeros MD Active FLUOXETINE HCL 40 MG CAPS 1 po q day FLUOXETINE HCL 82701093466 No Longer Active Mayra Terry Active FISH OIL 1000 MG CAPS Take one by mouth daily OMEGA-3 FATTY ACIDS 51621347800 Active Tu Landeros MD Active GLUCOSAMINE 500 MG TABS Take 2 tab po qd GLUCOSAMINE 41576280347 Active Tu Landeros MD Active TRILIPIX 135 MG CPDR 1 po qd CHOLINE FENOFIBRATE 29718649449 No Longer Active Tu Landreos MD Active ASPIRIN 81 MG CHEW TAB 1 tablet by mouth daily ASPIRIN 07705429730 Active Tu Landeros MD Active FUROSEMIDE 40 MG TAB 1 tablet by mouth daily FUROSEMIDE 33197540146 Active Tu Landeros MD Active REQUIP 2 MG TABS Take one tablet at bedtime prn ROPINIROLE HCL 71671508808 Active Tu Landeros MD Active KLOR-CON 10 10 MEQ CR-TABS TAKE 2 TABS DAILY POTASSIUM CHLORIDE 52957281829 Active Tu Landeros MD Active AMBIEN 10 MG TAB 1 tab by mouth at bedtime as needed for sleep AMBIEN 10 MG TAB 161359 ZOLPIDEM TARTRATE Inactive METFORMIN HCL 500 MG TABS 1 PO BID METFORMIN HCL 500 MG TABS 903922 METFORMIN HCL Inactive REGLAN 10 MG TAB 1 po TID PRN Nausea REGLAN 10 MG TAB 554301 METOCLOPRAMIDE HCL Inactive MECLIZINE HCL 25 MG CHEW TAB 1 four times a day as needed for dizziness 08/05 MECLIZINE HCL 25 MG CHEW TAB 655092 MECLIZINE HCL Inactive SOMA 350 MG TAB 1 po q 6 hours prn spasm SOMA 350 MG TAB 157962 CARISOPRODOL Inactive MELATONIN 5 MG TABS Take one by mouth daily MELATONIN 5 MG TABS 511940 MELATONIN Inactive MULTIVITAMINS TABS Take one by mouth daily MULTIVITAMINS TABS MULTIPLE VITAMIN Inactive LORTAB 5 5-500 MG TABS 1/2 to 1 tablet by mouth every 4 hours as needed for pain LORTAB 5 5-500 MG TABS HYDROCODONE- ACETAMINOPHEN Inactive XANAX 0.5 MG TABS 1 tablet every 6 hrs prn XANAX 0.5 MG TABS 575866 ALPRAZOLAM Inactive AUGMENTIN 875-125 MG TAB 1 tab by mouth twice daily with food AUGMENTIN 875-125 MG TAB 493194 AMOXICILLIN-POT CLAVULANATE Inactive ALPRAZOLAM 0.5 MG TABS 1 tab every 6hrs as needed ALPRAZOLAM 0.5 MG TABS 047440 ALPRAZOLAM Inactive SPIRONOLACTONE 25 MG TAB 0.5 tablet by mouth daily SPIRONOLACTONE 25 MG TAB 366051 SPIRONOLACTONE Inactive ACCU-CHEK KEYONA PLUS W/DEVICE KIT Use for testing bloodsugars three times daily as needed ACCU-CHEK KEYONA PLUS W/DEVICE KIT BLOOD GLUCOSE MONITORING SUPPL Inactive ACCU-CHEK KEYONA PLUS STRP Use for testing bloodsugars three times daily as needed ACCU-CHEK KEYONA PLUS STRP GLUCOSE BLOOD Inactive ACCU-CHEK FASTCLIX LANCETS MISC Use to check bloodsugar three times daily as needed ACCU-CHEK FASTCLIX LANCETS MISC 96916982462 LANCETS Inactive TRAMADOL HCL 50 MG TABS 1 tablets every 6 hours as needed for pain TRAMADOL HCL 50 MG TABS 483647 TRAMADOL HCL Inactive VENLAFAXINE HCL 75 MG TABS 1 po BID VENLAFAXINE HCL 75 MG TABS 612469 VENLAFAXINE HCL Inactive HYDROCODONE-ACETAMINOPHEN 5-500 MG TABS take one po Q 4-6 hours prn HYDROCODONE-ACETAMINOPHEN 5-500 MG TABS HYDROCODONE- ACETAMINOPHEN Inactive LORTAB 5 5-500 MG TABS 1/2 to 1 tablet by mouth every 4 hours as needed for pain LORTAB 5 5-500 MG TABS HYDROCODONE- ACETAMINOPHEN Inactive LAMISIL 250 MG TAB 1 po qd LAMISIL 250 MG TAB 184620 TERBINAFINE HCL Inactive VENLAFAXINE HCL 37.5 MG TABS 1 po BID VENLAFAXINE HCL 37.5 MG TABS 929892 VENLAFAXINE HCL Inactive CIPRO 500 MG TAB 1 tablet by mouth twice daily CIPRO 500 MG TAB 847766 CIPROFLOXACIN HCL Inactive VENLAFAXINE HCL 75 MG TABS 1 po BID VENLAFAXINE HCL 75 MG TABS 673365 VENLAFAXINE HCL Inactive SIMVASTATIN 40 MG TABS Take one by mouth daily SIMVASTATIN 40 MG TABS 039556 SIMVASTATIN Inactive OMEPRAZOLE 20 MG TBEC 1 PO 30 MIN BEFORE 1ST MEAL OMEPRAZOLE 20 MG TBEC 816844 OMEPRAZOLE Inactive FENOFIBRATE 145 MG TABS 1 po qd FENOFIBRATE 145 MG TABS 167934 FENOFIBRATE Inactive TRIAMCINOLONE ACETONIDE 0.1 % OINT Apply to affected areas TID for up to 2 weeks TRIAMCINOLONE ACETONIDE 0.1 % OINT 7394856 TRIAMCINOLONE ACETONIDE Inactive PREDNISONE 20 MG TAB 2 tabs daily for 3 days, 1 tab daily for 3 days, 1/2 tab daily for 2 days PREDNISONE 20 MG TAB 201798 PREDNISONE Inactive PREDNISONE 20 MG TAB 2 tabs daily for 3 days, 1 tab daily for 3 days, 1/2 tab daily for 2 days PREDNISONE 20 MG TAB 090940 PREDNISONE Inactive BACTRIM DS 800-160 MG TABS 1 po BID x 7 days BACTRIM DS 800-160 MG TABS SULFAMETHOXAZOLE-TRIMETHOPRIM Inactive Immunizations Vaccine Administration Date Value Standard Description Seasonal influenza vaccine, injectable, containing preservative, for > 3 years old (Afluria, FluLaval, Fluzone, Fluvirin, Fluarix, Agriflu(>=18 yo)) Fluzone (>3 yrs.) [[id number]] Influenza, seasonal, injectable influenza immunization (Flu Vax) has been administered 02/22/2012 influenza virus vaccine, unspecified formulation Seasonal influenza vaccine, injectable, containing preservative, for > 3 years old (Afluria, FluLaval, Fluzone, Fluvirin, Fluarix, Agriflu(>=18 yo)) Fluzone (>3 yrs.) [[id number]] Influenza, seasonal, injectable Vital Signs Date Name [...] Panel - Chemistry sodium, serum 139 mmol/L [phone]/11/27 potassium, serum 4.9 mmol/L 3.5-5.2 chloride, serum [...] Panel - Chemistry sodium, serum 139 mmol/L [phone]/11/22 potassium, serum 4.3 mmol/L 3.5-5.2 chloride, serum [...] HGBA1C - Chemistry sodium, serum 142 mmol/L 476-247 7148/10/22 potassium, serum 4.9 mmol/L 3.5-5.2 chloride, serum [...] 0.30 mg/dL 0.00-1.00 cholesterol, serum 139 mg/dL [phone]/10/22 triglyceride, serum, fasting 168 mg/dL 30-200 HDL cholesterol, serum 40 mg/dL 32-96 LDL cholesterol, serum 65 mg/dL 0-130 hemoglobin A1C, blood, as % of total hemoglobin 6.2 % 4.3-6.0 sodium, serum 144 mmol/L 543-471 9002/04/16 potassium, serum 4.2 mmol/L 3.5-5.2 chloride, serum [...] 0.20 mg/dL 0.00-1.00 cholesterol, serum 133 mg/dL [phone]/04/16 triglyceride, serum, fasting 142 mg/dL 30-200 HDL [...] mg/dL Encounters Code Encounter Date Provider Facility CPT-81107 Level 4 Est. Patient 09:45:25 CDT Tu Landeros MD [facility] CPT-14486 Level 4 Est. Patient 09:05:20 [employer] Tu Landeros MD [facility] CPT-66837 Level 4 Est. Patient 14:09:06 CDT Tu Landeros MD [facility] CPT-67282 Level 3 Est. Patient 13:36:54 CDT Tu Landeros MD [facility] CPT-70678 Level 3 Est. Patient 08:59:14 CDT Tu Landeros MD [facility] CPT-50212 Level 3 Est. Patient 13:48:35 CDT Fab Morales DO [facility] CPT-02029 Level 4 Est. Patient 10:05:48 CDT Tu Landeros MD [facility] CPT-50444 Level 3 Est. Patient 13:38:42 CDT Marek BANKS [facility] CPT-46949 Level 5 Est. Patient 08:08:39 CDT Jerrica FRANCIS [facility] CPT-36678 Level 4 Est. Patient 14:23:38 CDT Tu Landeros MD [facility] CPT-13350 Level 3 Est. Patient 11:44:04 CDT Tu Landeros MD [facility] CPT-55346 Level 3 Est. Patient 11:03:20 [employer] Tu Landeros MD [facility] CPT-32747 Level 3 Est. Patient 11:03:14 [employer] Tu Landeros MD [facility] CPT-68306 Level 3 Est. Patient 12:42:49 CDT Tu Landeros MD [facility] CPT-41825 Level 3 Est. Patient 11:52:06 CDT Tu Landeros MD [facility] CPT-18187 Level 3 Est. Patient 13:58:11 CDT Tu Landeros MD [facility] CPT-12835 Level 3 Est. Patient 17:50:07 CDT Fab Morales DO [facility] CPT-22454 Level 3 Est. Patient 12:06:29 CDT Elvira Cervantes MD [facility] CPT-19275 Level 3 Est. Patient 15:50:32 CDT Tu Landeros MD [facility] CPT-64068 Level 4 Est. Patient 16:08:29 CDT Tu Landeros MD [facility] CPT-77089 Level 3 Est. Patient 16:04:19 CDT Tu Landeros MD [facility] CPT-93060 Level 3 Est. Patient 11:22:30 [employer] Tu Landeros MD [facility] CPT-85861 Level 4 Est. Patient 16:24:02 [employer] Tu Landeros MD [facility] CPT-06672 Level 3 Est. Patient 17:21:23 [employer] Tu Landeros MD [facility] Procedures Code Procedure Name Date Entry Date Standard Description CPT-OV Office Visit 15:45:11 CDT CPT-000 Give Zostavax 14:09:06 CDT CPT-51634 Administration single or combination vaccine inc oral 15 :19:04 CDT CPT-01389 Zoster Vaccine (Zostavax) 15:19:04 CDT CPT-11214 Administration single or combination vaccine inc oral 20 :51:03 CDT CPT-41635 Influenza split virus > age 3 20:51:03 CDT CPT-27899 No Charge Offi Visit 14:52:03 CDT CPT-OV Office Visit 14:57:43 CDT CPT-OV Office Visit 15:22:32 CDT CPT-86738 Administration single or combination vaccine inc oral 11 :33:15 CDT CPT-32374 Influenza split virus > age 3 11:33:15 CDT
--- OUTSIDE RECORDS SUMMARY | 2018-04-25 19:20 | XMS REPORT | Clinical Summary ---
Author Author Admin, SACHI Clemons [facility] Address Unknown Phone Unavailable Allergies, [...] Generic Name NDC Status Provider Patient Instruction TRUETEST TEST STRP test blood sugar three times daily dx: 250.00 GLUCOSE BLOOD [id number] No Longer Active Suze VOGEL Active TRUERESULT BLOOD GLUCOSE W/DEVICE KIT use to test blood sugar tid dx: 250.00 BLOOD GLUCOSE MONITORING SUPPL 66851484890 No Longer Active Suze Corey NURYSMahendra Active EMBRACE BLOOD GLUCOSE TEST STRP test blood sugar twice daily DX 250.0 GLUCOSE BLOOD 95552377882 Active uT Landeros MD Active ALIGN 4 MG CAPS 1 tid PROBIOTIC PRODUCT 94585334595 No Longer Active Shaun Sy MD Active CIPRO 500 MG TABS 1 bid x 14 days start 09-28-13 CIPROFLOXACIN HCL 16496017615 No Longer Active Shaun Sy MD Active TRAMADOL HCL 50 MG TABS 1-2 tablets every 6 hours as needed for pain TRAMADOL HCL 91885733663 Active Tu Landeros MD Active HYDROCODONE-ACETAMINOPHEN 5-325 MG TABS 1 tab by mouth every 6 hours as needed for pain HYDROCODONE-ACETAMINOPHEN 85579259009 No Longer Active Tu Landeros MD Active OMEPRAZOLE 20 MG CPDR 1 po q a.m. OMEPRAZOLE 21344835702 Active Tu Landeros MD Active GABAPENTIN 100 MG CAPS 1 po bid GABAPENTIN 67672037953 No Longer Active Tu Landeros MD Active B-12 100 MCG TABS Take one by mouth daily CYANOCOBALAMIN 53687985556 No Longer Active Tu Landeros MD Active GABAPENTIN 100 MG CAPS by mouth twice a day GABAPENTIN 02243300614 Active Tu Landeros MD Active BACTRIM DS 800-160 MG TABS 1 bid x 14 day start 09-28-13 SULFAMETHOXAZOLE-TRIMETHOPRIM 02578784751 No Longer Active Tu Landeros MD Active SIMVASTATIN 40 MG TABS 1 tab daily at bedtime SIMVASTATIN 36367416925 Active Tu Landeros MD Active CARVEDILOL 12.5 MG TABS 1 po BID CARVEDILOL 36222194696 Active Tu Landeros MD Active SUPER B COMPLEX/VITAMIN C TABS 1 qd B COMPLEX-C 66635430156 Active JASPREET Perez Active TRILIPIX 135 MG CPDR 1 q hs CHOLINE FENOFIBRATE 15258287545 Active Tu Landeros MD Active FENOFIBRATE 145 MG TABS 1 po qd FENOFIBRATE 21986937306 No Longer Active JASPREET Perez Active OMEPRAZOLE 20 MG TBEC 1 PO 30 MIN BEFORE 1ST MEAL OMEPRAZOLE 79304487336 No Longer Active JASPREET Perez Active SIMVASTATIN 40 MG TABS Take one by mouth daily SIMVASTATIN 45749411155 No Longer Active JASPREET Perez Active VENLAFAXINE HCL 37.5 MG TABS 1 bid VENLAFAXINE HCL 26520837075 Active Tu Landeros MD Active VENLAFAXINE HCL 75 MG TABS 1 po BID VENLAFAXINE HCL 60945234851 No Longer Active JASPREET Perez Active METFORMIN HCL 500 MG TB24 1.5 po BID METFORMIN HCL 76428842489 Active Tu Landeros MD Active CIPRO 500 MG TAB 1 tablet by mouth twice daily CIPROFLOXACIN HCL 25151174449 No Longer Active Tu Landeros MD Active VENLAFAXINE HCL 37.5 MG TABS 1 po BID VENLAFAXINE HCL 60600376835 No Longer Active Suze Corey RMA Active CVS STOOL SOFTENER 100 MG CAPS 1 tab daily DOCUSATE SODIUM 99596240225 Active Tu Landeros MD Active LAMISIL 250 MG TAB 1 po qd TERBINAFINE HCL 23525395966 No Longer Active Tu Landeros MD Active LORTAB 5 5-500 MG TABS 1/2 to 1 tablet by mouth every 4 hours as needed for pain HYDROCODONE-ACETAMINOPHEN 60962775280 No Longer Active Tu Landeros MD Active ENALAPRIL MALEATE 20 MG TABS 1.5 po qd ENALAPRIL MALEATE 00668935833 Active Tu Landeros MD Active HYDROCODONE-ACETAMINOPHEN 5-500 MG TABS take one po Q 4-6 hours prn HYDROCODONE-ACETAMINOPHEN 76292955096 No Longer Active Tu Landeros MD Active BACTRIM DS 800-160 MG TABS 1 po BID x 7 days SULFAMETHOXAZOLE-TRIMETHOPRIM 89692707759 No Longer Active Tu Landeros MD Active VENLAFAXINE HCL 75 MG TABS 1 po BID VENLAFAXINE HCL 37950801621 No Longer Active Elvira Cervantes MD PhD Active TRAMADOL HCL 50 MG TABS 1 tablets every 6 hours as needed for pain TRAMADOL HCL 31842891168 No Longer Active Tu Landeros MD Active ACCU-CHEK FASTCLIX LANCETS MISC Use to check bloodsugar three times daily as needed LANCETS 76981363184 No Longer Active Tu Landeros MD Active ACCU-CHEK KEYONA PLUS STRP Use for testing bloodsugars three times daily as needed GLUCOSE BLOOD 43503589740 No Longer Active Tu Landeros MD Active ACCU-CHEK KEYONA PLUS W/DEVICE KIT Use for testing bloodsugars three times daily as needed BLOOD GLUCOSE MONITORING SUPPL 79213918970 No Longer Active Tu Landeros MD Active SPIRONOLACTONE 25 MG TAB 0.5 tablet by mouth daily SPIRONOLACTONE 36588046391 No Longer Active Tu Landeros MD Active ALPRAZOLAM 0.5 MG TABS 1 tab every 6hrs as needed ALPRAZOLAM 90124513196 No Longer Active Tu Landeros MD Active AUGMENTIN 875-125 MG TAB 1 tab by mouth twice daily with food AMOXICILLIN-POT CLAVULANATE 38492091789 No Longer Active Tu Landeros MD Active PREDNISONE 20 MG TAB 2 tabs daily for 3 days, 1 tab daily for 3 days, 1/2 tab daily for 2 days PREDNISONE 30513383590 No Longer Active Tu Landeros MD Active XANAX 0.5 MG TABS 1 tablet every 6 hrs prn ALPRAZOLAM 64929862456 No Longer Active Tu Landeros MD Active PREDNISONE 20 MG TAB 2 tabs daily for 3 days, 1 tab daily for 3 days, 1/2 tab daily for 2 days PREDNISONE 98962115248 No Longer Active Tu Landeros MD Active TRIAMCINOLONE ACETONIDE 0.1 % OINT Apply to affected areas TID for up to 2 weeks TRIAMCINOLONE ACETONIDE 54751865507 No Longer Active Tu Landeros MD Active LORTAB 5 5-500 MG TABS 1/2 to 1 tablet by mouth every 4 hours as needed for pain HYDROCODONE-ACETAMINOPHEN 70368656736 No Longer Active Tu Landeros MD Active MULTIVITAMINS TABS Take one by mouth daily MULTIPLE VITAMIN 21195996070 No Longer Active Tu Landeros MD Active MELATONIN 5 MG TABS Take one by mouth daily MELATONIN 34976807623 No Longer Active Tu Landeros MD Active SOMA 350 MG TAB 1 po q 6 hours prn spasm CARISOPRODOL 92866739874 No Longer Active Tu Landeros MD Active MECLIZINE HCL 25 MG CHEW TAB 1 four times a day as needed for dizziness 08/05 MECLIZINE HCL 66939016537 No Longer Active Fab Morales DO Active ANGEL BREEZE 2 TEST DISK test tid prn GLUCOSE BLOOD 93914866325 No Longer Active Negra Scott RN Active DICLOFENAC SODIUM 50 MG TBEC 1 tablet by mouth three times a day as needed DICLOFENAC SODIUM 79665469108 Active Tu Landeros MD Active REGLAN 10 MG TAB 1 po TID PRN Nausea METOCLOPRAMIDE HCL 71450335401 No Longer Active Tu Landeros MD Active METFORMIN HCL 500 MG TABS 1 PO BID METFORMIN HCL 73685284032 No Longer Active Tu Landeros MD Active AMBIEN 10 MG TAB 1 tab by mouth at bedtime as needed for sleep ZOLPIDEM TARTRATE 33915836046 No Longer Active Tu Landeros MD Active FLUOXETINE HCL 40 MG CAPS 1 po q day FLUOXETINE HCL 69312522754 No Longer Active Mayra Concord Active FISH OIL 1000 MG CAPS Take one by mouth daily OMEGA-3 FATTY ACIDS 97677776651 Active Tu Landeros MD Active GLUCOSAMINE 500 MG TABS Take 2 tab po qd GLUCOSAMINE 70120362991 Active Tu Landeros MD Active TRILIPIX 135 MG CPDR 1 po qd CHOLINE FENOFIBRATE 35854599382 No Longer Active Tu Landeros MD Active ASPIRIN 81 MG CHEW TAB 1 tablet by mouth daily ASPIRIN 36127766046 Active Tu Landeros MD Active FUROSEMIDE 40 MG TAB 1 tablet by mouth daily FUROSEMIDE 89886125563 Active Tu Landeros MD Active REQUIP 2 MG TABS Take one tablet at bedtime prn ROPINIROLE HCL 54851525614 Active Tu Landeros MD Active KLOR-CON 10 10 MEQ CR-TABS TAKE 2 TABS DAILY POTASSIUM CHLORIDE 20182353447 Active Lesli Kellogg DIRECTOR PRODUCT SAFETY Active AMBIEN 10 MG TAB 1 tab by mouth at bedtime as needed for sleep AMBIEN 10 MG TAB 317898 ZOLPIDEM TARTRATE Inactive METFORMIN HCL 500 MG TABS 1 PO BID METFORMIN HCL 500 MG TABS 487192 METFORMIN HCL Inactive REGLAN 10 MG TAB 1 po TID PRN Nausea REGLAN 10 MG TAB 343988 METOCLOPRAMIDE HCL Inactive MECLIZINE HCL 25 MG CHEW TAB 1 four times a day as needed for dizziness 08/05 MECLIZINE HCL 25 MG CHEW TAB 458471 MECLIZINE HCL Inactive SOMA 350 MG TAB 1 po q 6 hours prn spasm SOMA 350 MG TAB 080787 CARISOPRODOL Inactive MELATONIN 5 MG TABS Take one by mouth daily MELATONIN 5 MG TABS 982604 MELATONIN Inactive MULTIVITAMINS TABS Take one by mouth daily MULTIVITAMINS TABS MULTIPLE VITAMIN Inactive LORTAB 5 5-500 MG TABS 1/2 to 1 tablet by mouth every 4 hours as needed for pain LORTAB 5 5-500 MG TABS HYDROCODONE- ACETAMINOPHEN Inactive XANAX 0.5 MG TABS 1 tablet every 6 hrs prn XANAX 0.5 MG TABS 345131 ALPRAZOLAM Inactive AUGMENTIN 875-125 MG TAB 1 tab by mouth twice daily with food AUGMENTIN 875-125 MG TAB 134615 AMOXICILLIN-POT CLAVULANATE Inactive ALPRAZOLAM 0.5 MG TABS 1 tab every 6hrs as needed ALPRAZOLAM 0.5 MG TABS 794835 ALPRAZOLAM Inactive SPIRONOLACTONE 25 MG TAB 0.5 tablet by mouth daily SPIRONOLACTONE 25 MG TAB 797909 SPIRONOLACTONE Inactive ACCU-CHEK KEYONA PLUS W/DEVICE KIT Use for testing bloodsugars three times daily as needed ACCU-CHEK KEYONA PLUS W/DEVICE KIT BLOOD GLUCOSE MONITORING SUPPL Inactive ACCU-CHEK KEYONA PLUS STRP Use for testing bloodsugars three times daily as needed ACCU-CHEK KEYONA PLUS STRP GLUCOSE BLOOD Inactive ACCU-CHEK FASTCLIX LANCETS MISC Use to check bloodsugar three times daily as needed ACCU-CHEK FASTCLIX LANCETS MISC 86161311267 LANCETS Inactive TRAMADOL HCL 50 MG TABS 1 tablets every 6 hours as needed for pain TRAMADOL HCL 50 MG TABS 175053 TRAMADOL HCL Inactive VENLAFAXINE HCL 75 MG TABS 1 po BID VENLAFAXINE HCL 75 MG TABS 643983 VENLAFAXINE HCL Inactive HYDROCODONE-ACETAMINOPHEN 5-500 MG TABS take one po Q 4-6 hours prn HYDROCODONE-ACETAMINOPHEN 5-500 MG TABS HYDROCODONE- ACETAMINOPHEN Inactive LORTAB 5 5-500 MG TABS 1/2 to 1 tablet by mouth every 4 hours as needed for pain LORTAB 5 5-500 MG TABS HYDROCODONE- ACETAMINOPHEN Inactive LAMISIL 250 MG TAB 1 po qd LAMISIL 250 MG TAB 644852 TERBINAFINE HCL Inactive VENLAFAXINE HCL 37.5 MG TABS 1 po BID VENLAFAXINE HCL 37.5 MG TABS 427712 VENLAFAXINE HCL Inactive CIPRO 500 MG TAB 1 tablet by mouth twice daily CIPRO 500 MG TAB 901569 CIPROFLOXACIN HCL Inactive VENLAFAXINE HCL 75 MG TABS 1 po BID VENLAFAXINE HCL 75 MG TABS 886972 VENLAFAXINE HCL Inactive SIMVASTATIN 40 MG TABS Take one by mouth daily SIMVASTATIN 40 MG TABS 471599 SIMVASTATIN Inactive OMEPRAZOLE 20 MG TBEC 1 PO 30 MIN BEFORE 1ST MEAL OMEPRAZOLE 20 MG TBEC 435644 OMEPRAZOLE Inactive FENOFIBRATE 145 MG TABS 1 po qd FENOFIBRATE 145 MG TABS 932199 FENOFIBRATE Inactive BACTRIM DS 800-160 MG TABS 1 bid x 14 day start 09-28-13 BACTRIM DS 800-160 MG TABS SULFAMETHOXAZOLE-TRIMETHOPRIM Inactive B-12 100 MCG TABS Take one by mouth daily B-12 100 MCG TABS CYANOCOBALAMIN Inactive GABAPENTIN 100 MG CAPS 1 po bid GABAPENTIN 100 MG CAPS 486978 GABAPENTIN Inactive HYDROCODONE-ACETAMINOPHEN 5-325 MG TABS 1 tab by mouth every 6 hours as needed for pain HYDROCODONE-ACETAMINOPHEN 5-325 MG TABS 878580 HYDROCODONE-ACETAMINOPHEN Inactive CIPRO 500 MG TABS 1 bid x 14 days start 09-28-13 CIPRO 500 MG TABS 540544 CIPROFLOXACIN HCL Inactive ALIGN 4 MG CAPS 1 tid ALIGN 4 MG CAPS PROBIOTIC PRODUCT Inactive TRUERESULT BLOOD GLUCOSE W/DEVICE KIT use to test blood sugar tid dx: 250.00 TRUERESULT BLOOD GLUCOSE W/DEVICE KIT BLOOD GLUCOSE MONITORING SUPPL Inactive TRUETEST TEST STRP test blood sugar three times daily dx: 250.00 TRUETEST TEST STRP GLUCOSE BLOOD Inactive TRIAMCINOLONE ACETONIDE 0.1 % OINT Apply to affected areas TID for up to 2 weeks TRIAMCINOLONE ACETONIDE 0.1 % OINT 9799581 TRIAMCINOLONE ACETONIDE Inactive PREDNISONE 20 MG TAB 2 tabs daily for 3 days, 1 tab daily for 3 days, 1/2 tab daily for 2 days PREDNISONE 20 MG TAB 307938 PREDNISONE Inactive PREDNISONE 20 MG TAB 2 tabs daily for 3 days, 1 tab daily for 3 days, 1/2 tab daily for 2 days PREDNISONE 20 MG TAB 173589 PREDNISONE Inactive BACTRIM DS 800-160 MG TABS 1 po BID x 7 days BACTRIM DS 800-160 MG TABS SULFAMETHOXAZOLE-TRIMETHOPRIM Inactive Immunizations Vaccine Administration Date Value Standard Description Seasonal influenza vaccine, injectable, containing preservative, for > 3 years old (Afluria, FluLaval, Fluzone, Fluvirin, Fluarix, Agriflu(>=18 yo)) Fluzone (>3 yrs.) [[id number]] Influenza, seasonal, injectable influenza immunization (Flu Vax) has been administered 02/22/2012 influenza virus vaccine, unspecified formulation Seasonal influenza vaccine, injectable, containing preservative, for > 3 years old (Afluria, FluLaval, Fluzone, Fluvirin, Fluarix, Agriflu(>=18 yo)) Fluzone (>3 yrs.) [[id number]] Influenza, seasonal, injectable Vital Signs Date Name [...] as % of total hemoglobin 6.4 % hemoglobin A1C, blood, as % of total hemoglobin 6.2 % Lab Report: Comp. Metabolic Panel, Lipid Panel, HGBA1C - Chemistry blood glucose 113 mg/dL 65-110 carbon dioxide, venous blood 29.9 mmol/L 21.0-32.0 chloride, serum 106 mmol/L 98-107 potassium, serum 4.2 mmol/L 3.5-5.2 sodium, serum 144 mmol/L 252-211 2166/04/16 urea nitrogen, blood 22 mg/dL 7-18 creatinine, serum 1.10 mg/dL 0.60-1.30 alanine aminotransferase (SGPT), serum 21 U/L 12-78 aspartate aminotransferase (SGOT), serum 18 U/L 15-37 alkaline phosphatase, serum 84 U/L 50-136 calcium, serum 8.9 mg/dL 8.5-10.1 bilirubin, serum, total 0.20 mg/dL 0.00-1.00 cholesterol, serum 133 mg/dL 754-032 7357/04/16 triglyceride, serum, fasting 142 mg/dL 30-200 HDL [...] mg/dL Encounters Code Encounter Date Provider Facility CPT-45209 Level 4 Est. Patient 14:27:39 RN ASSESSMENT Tu Landeros MD [facility] CPT-59733 Level 4 Est. Patient 09:45:25 CDT Tu Landeros MD [facility] CPT-58112 Level 4 Est. Patient 09:05:20 RN ASSESSMENT Tu Landeros MD [facility] CPT-34517 Level 4 Est. Patient 14:09:06 CDT Tu Landeros MD [facility] CPT-28440 Level 3 Est. Patient 13:36:54 CDT Tu Landeros MD [facility] CPT-86312 Level 3 Est. Patient 08:59:14 CDT Tu Landeros MD [facility] CPT-82540 Level 3 Est. Patient 13:48:35 CDT Fab Morales DO [facility] CPT-71625 Level 4 Est. Patient 10:05:48 CDT Tu Landeros MD [facility] CPT-37223 Level 3 Est. Patient 13:38:42 CDT Marek BANKS [facility] CPT-27108 Level 5 Est. Patient 08:08:39 CDT Jerrica Hopkins TITO [facility] CPT-71452 Level 4 Est. Patient 14:23:38 CDT Tu Landeros MD [facility] CPT-80730 Level 3 Est. Patient 11:44:04 CDT Tu Landeros MD [facility] CPT-18267 Level 3 Est. Patient 11:03:20 RN ASSESSMENT Tu Landeros MD [facility] CPT-95596 Level 3 Est. Patient 11:03:14 RN ASSESSMENT Tu Landeros MD [facility] CPT-86476 Level 3 Est. Patient 12:42:49 CDT Tu Landeros MD [facility] CPT-05294 Level 3 Est. Patient 11:52:06 CDT Tu Landeros MD [facility] CPT-93339 Level 3 Est. Patient 13:58:11 CDT Tu Landeros MD [facility] CPT-31625 Level 3 Est. Patient 17:50:07 CDT Fab Morales DO [facility] CPT-12243 Level 3 Est. Patient 12:06:29 CDT Elvira Cervantes MD PhD [facility] CPT-48513 Level 3 Est. Patient 15:50:32 CDT Tu Landeros MD [facility] CPT-46645 Level 4 Est. Patient 16:08:29 CDT Tu Landeros MD [facility] CPT-89542 Level 3 Est. Patient 16:04:19 CDT Tu Landeros MD [facility] CPT-72354 Level 3 Est. Patient 11:22:30 RN ASSESSMENT Tu Landeros MD [facility] CPT-29586 Level 4 Est. Patient 16:24:02 RN ASSESSMENT Tu Landeros MD [facility] CPT-24850 Level 3 Est. Patient 17:21:23 RN ASSESSMENT Tu Landeros MD [facility] Procedures Code Procedure Name Date Entry Date Standard Description CPT-JTINJ Asp/Joint Injection 15:51:27 RN ASSESSMENT CPT-OV Office Visit 15:52:02 RN ASSESSMENT CPT-OV Office Visit 15:45:11 CDT CPT-000 Give Zostavax 14:09:06 CDT CPT-55850 Administration single or combination vaccine inc oral 15 :19:04 CDT CPT-14810 Zoster Vaccine (Zostavax) 15:19:04 CDT CPT-94972 Administration single or combination vaccine inc oral 20 :51:03 CDT CPT-89210 Influenza split virus > age 3 20:51:03 CDT CPT-97010 No Charge Offi Visit 14:52:03 CDT CPT-OV Office Visit 14:57:43 CDT CPT-OV Office Visit 15:22:32 CDT CPT-08577 Administration single or combination vaccine inc oral 11 :33:15 CDT CPT-99775 Influenza split virus > age 3 11:33:15 CDT
--- OUTSIDE RECORDS SUMMARY | 2018-04-25 19:22 | XMS REPORT | Clinical Summary ---
Author Author Admin, SACHI Organization [facility] Address Unknown Phone Allergies, Adverse Reactions, Alerts [...] Inactive Tu Landeros MD ONYCHOMYCOSIS ICD-110.1 Inactive uT Landeros MD Medication List Medication Instructions Start Date Stop Date Generic Name NDC Status Provider Patient Instruction HYDROCODONE-ACETAMINOPHEN 5-325 MG TABS 1 tab by mouth every 6 hours as needed for pain HYDROCODONE-ACETAMINOPHEN 64432558690 Active Tu Landeros MD Active METFORMIN HCL 500 MG TB24 1.5 po BID METFORMIN HCL 40565217931 Active Tu Landeros MD Active GABAPENTIN 100 MG CAPS 3 po tid GABAPENTIN 11335693757 Active Tu Landeros MD Active CIPRO 500 MG TAB 1 tablet by mouth twice daily CIPROFLOXACIN HCL 45841807462 No Longer Active Tu Landeros MD Active VENLAFAXINE HCL 75 MG TABS 1 po BID VENLAFAXINE HCL 19808987013 Active Tu Landeros MD Active VENLAFAXINE HCL 37.5 MG TABS 1 po BID VENLAFAXINE HCL 18079998668 No Longer Active Suze Corey RMA Active [employer] STOOL SOFTENER 100 MG CAPS 1 tab daily DOCUSATE SODIUM 02423418565 Active Tu Landeros MD Active LAMISIL 250 MG TAB 1 po qd TERBINAFINE HCL 94842693584 No Longer Active Tu Landeros MD Active LORTAB 5 5-500 MG TABS 1/2 to 1 tablet by mouth every 4 hours as needed for pain HYDROCODONE-ACETAMINOPHEN 68865425740 No Longer Active Tu Landeros MD Active FENOFIBRATE 145 MG TABS 1 po qd FENOFIBRATE 25617219379 Active Tu Landeros MD Active ENALAPRIL MALEATE 20 MG TABS 1.5 po qd ENALAPRIL MALEATE 37803942731 Active Tu Landeros MD Active HYDROCODONE-ACETAMINOPHEN 5-500 MG TABS take one po Q 4-6 hours prn HYDROCODONE-ACETAMINOPHEN 33348542799 No Longer Active Tu Landeros MD Active BACTRIM DS 800-160 MG TABS 1 po BID x 7 days SULFAMETHOXAZOLE-TRIMETHOPRIM 72793246291 No Longer Active Tu Landeros MD Active VENLAFAXINE HCL 75 MG TABS 1 po BID VENLAFAXINE HCL 83928476250 No Longer Active Elvira Cervantes MD PhD Active TRUERESULT BLOOD GLUCOSE W/DEVICE KIT use to test blood sugar tid dx: 250.00 BLOOD GLUCOSE MONITORING SUPPL 47426307262 Active Tu Landeros MD Active TRUETEST TEST STRP test blood sugar three times daily dx: 250.00 GLUCOSE BLOOD 62108493772 Active Tu Landeros MD Active ACCU-CHEK FASTCLIX LANCETS MISC Use to check bloodsugar three times daily as needed LANCETS 03453420130 No Longer Active Tu Landeros MD Active ACCU-CHEK KEYONA PLUS STRP Use for testing bloodsugars three times daily as needed GLUCOSE BLOOD 92732255587 No Longer Active Tu Landeros MD Active ACCU-CHEK KEYONA PLUS W/DEVICE KIT Use for testing bloodsugars three times daily as needed BLOOD GLUCOSE MONITORING SUPPL 56732578537 No Longer Active Tu Landeros MD Active SPIRONOLACTONE 25 MG TAB 0.5 tablet by mouth daily SPIRONOLACTONE 15287571702 No Longer Active Tu Landeros MD Active TRAMADOL HCL 50 MG TABS 1 tablets every 6 hours as needed for pain TRAMADOL HCL 12791025816 Active Tu Landeros MD Active ALPRAZOLAM 0.5 MG TABS 1 tab every 6hrs as needed ALPRAZOLAM 25666210470 No Longer Active Tu Landeros MD Active B-12 100 MCG TABS Take one by mouth daily CYANOCOBALAMIN 17293745916 Active Tu Landeros MD Active AUGMENTIN 875-125 MG TAB 1 tab by mouth twice daily with food AMOXICILLIN-POT CLAVULANATE 22524745401 No Longer Active Tu Landeros MD Active PREDNISONE 20 MG TAB 2 tabs daily for 3 days, 1 tab daily for 3 days, 1/2 tab daily for 2 days PREDNISONE 21403053013 No Longer Active Tu Landeros MD Active XANAX 0.5 MG TABS 1 tablet every 6 hrs prn ALPRAZOLAM 81981103348 No Longer Active Tu Landeros MD Active PREDNISONE 20 MG TAB 2 tabs daily for 3 days, 1 tab daily for 3 days, 1/2 tab daily for 2 days PREDNISONE 36766554266 No Longer Active Tu Landeros MD Active TRIAMCINOLONE ACETONIDE 0.1 % OINT Apply to affected areas TID for up to 2 weeks TRIAMCINOLONE ACETONIDE 80971496789 No Longer Active Tu Landeros MD Active LORTAB 5 5-500 MG TABS 1/2 to 1 tablet by mouth every 4 hours as needed for pain HYDROCODONE-ACETAMINOPHEN 43133645445 No Longer Active Tu Landeros MD Active MULTIVITAMINS TABS Take one by mouth daily MULTIPLE VITAMIN 16969887175 No Longer Active Tu Landeros MD Active MELATONIN 5 MG TABS Take one by mouth daily MELATONIN 06268387770 No Longer Active Tu Landeros MD Active SOMA 350 MG TAB 1 po q 6 hours prn spasm CARISOPRODOL 35659164288 No Longer Active Tu Landeros MD Active MECLIZINE HCL 25 MG CHEW TAB 1 four times a day as needed for dizziness 08/05 MECLIZINE HCL 30954453968 No Longer Active Fab Deann Andrew MCCORMACK Active ANGEL BREEZE 2 TEST DISK test tid prn GLUCOSE BLOOD 93877622549 No Longer Active Nerga Scott MICHAEL Active DICLOFENAC SODIUM 50 MG TBEC 1 tablet by mouth three times a day as needed DICLOFENAC SODIUM 09366683314 Active Tu Landeros MD Active REGLAN 10 MG TAB 1 po TID PRN Nausea METOCLOPRAMIDE HCL 83976397597 No Longer Active Tu Landeros MD Active METFORMIN HCL 500 MG TABS 1 PO BID METFORMIN HCL 56562926751 No Longer Active Tu Landeros MD Active CARVEDILOL 12.5 MG TABS Take 1 by mouth twice a day CARVEDILOL 79943454211 Active Tu Landeros MD Active AMBIEN 10 MG TAB 1 tab by mouth at bedtime as needed for sleep ZOLPIDEM TARTRATE 10199902027 No Longer Active Tu Landeros MD Active FLUOXETINE HCL 40 MG CAPS 1 po q day FLUOXETINE HCL 45677431290 No Longer Active Mayra Landers Active FISH OIL 1000 MG CAPS Take one by mouth daily OMEGA-3 FATTY ACIDS 55161560331 Active Tu Landeros MD Active GLUCOSAMINE 500 MG TABS Take 2 tab po qd GLUCOSAMINE 07771262510 Active Tu Landeros MD Active TRILIPIX 135 MG CPDR 1 po qd CHOLINE FENOFIBRATE 94049249920 No Longer Active Tu Landeros MD Active ASPIRIN 81 MG CHEW TAB 1 tablet by mouth daily ASPIRIN 02023422385 Active Tu Landeros MD Active FUROSEMIDE 40 MG TAB 1 tablet by mouth daily FUROSEMIDE 33632837793 Active Tu Landeros MD Active REQUIP 2 MG TABS Take one tablet at bedtime prn ROPINIROLE HCL 21268891771 Active Tu Landeros MD Active SIMVASTATIN 40 MG TABS Take one by mouth daily SIMVASTATIN 22215656856 Active Tu Landeros MD Active KLOR-CON 10 10 MEQ CR-TABS TAKE 2 TABS DAILY POTASSIUM CHLORIDE 58088008163 Active Tu Landeros MD Active OMEPRAZOLE 20 MG TBEC 1 PO 30 MIN BEFORE 1ST MEAL OMEPRAZOLE 88199356461 Active Tu Landeros MD Active AMBIEN 10 MG TAB 1 tab by mouth at bedtime as needed for sleep AMBIEN 10 MG TAB 236840 ZOLPIDEM TARTRATE Inactive METFORMIN HCL 500 MG TABS 1 PO BID METFORMIN HCL 500 MG TABS 322244 METFORMIN HCL Inactive REGLAN 10 MG TAB 1 po TID PRN Nausea REGLAN 10 MG TAB 200184 METOCLOPRAMIDE HCL Inactive MECLIZINE HCL 25 MG CHEW TAB 1 four times a day as needed for dizziness 08/05 MECLIZINE HCL 25 MG CHEW TAB 135579 MECLIZINE HCL Inactive SOMA 350 MG TAB 1 po q 6 hours prn spasm SOMA 350 MG TAB 142390 CARISOPRODOL Inactive MELATONIN 5 MG TABS Take one by mouth daily MELATONIN 5 MG TABS 742455 MELATONIN Inactive MULTIVITAMINS TABS Take one by mouth daily MULTIVITAMINS TABS MULTIPLE VITAMIN Inactive LORTAB 5 5-500 MG TABS 1/2 to 1 tablet by mouth every 4 hours as needed for pain LORTAB 5 5-500 MG TABS HYDROCODONE- ACETAMINOPHEN Inactive XANAX 0.5 MG TABS 1 tablet every 6 hrs prn XANAX 0.5 MG TABS 392968 ALPRAZOLAM Inactive AUGMENTIN 875-125 MG TAB 1 tab by mouth twice daily with food AUGMENTIN 875-125 MG TAB 643240 AMOXICILLIN-POT CLAVULANATE Inactive ALPRAZOLAM 0.5 MG TABS 1 tab every 6hrs as needed ALPRAZOLAM 0.5 MG TABS 767544 ALPRAZOLAM Inactive SPIRONOLACTONE 25 MG TAB 0.5 tablet by mouth daily SPIRONOLACTONE 25 MG TAB 000128 SPIRONOLACTONE Inactive ACCU-CHEK KEYONA PLUS W/DEVICE KIT Use for testing bloodsugars three times daily as needed ACCU-CHEK KEYONA PLUS W/DEVICE KIT BLOOD GLUCOSE MONITORING SUPPL Inactive ACCU-CHEK KEYONA PLUS STRP Use for testing bloodsugars three times daily as needed ACCU-CHEK KEYONA PLUS STRP GLUCOSE BLOOD Inactive ACCU-CHEK FASTCLIX LANCETS MISC Use to check bloodsugar three times daily as needed ACCU-CHEK FASTCLIX LANCETS MISC 74622373468 LANCETS Inactive VENLAFAXINE HCL 75 MG TABS 1 po BID VENLAFAXINE HCL 75 MG TABS 826928 VENLAFAXINE HCL Inactive HYDROCODONE-ACETAMINOPHEN 5-500 MG TABS take one po Q 4-6 hours prn HYDROCODONE-ACETAMINOPHEN 5-500 MG TABS 377718 HYDROCODONE- ACETAMINOPHEN Inactive LORTAB 5 5-500 MG TABS 1/2 to 1 tablet by mouth every 4 hours as needed for pain LORTAB 5 5-500 MG TABS HYDROCODONE- ACETAMINOPHEN Inactive LAMISIL 250 MG TAB 1 po qd LAMISIL 250 MG TAB 335515 TERBINAFINE HCL Inactive VENLAFAXINE HCL 37.5 MG TABS 1 po BID VENLAFAXINE HCL 37.5 MG TABS 134842 VENLAFAXINE HCL Inactive CIPRO 500 MG TAB 1 tablet by mouth twice daily CIPRO 500 MG TAB 959520 CIPROFLOXACIN HCL Inactive TRIAMCINOLONE ACETONIDE 0.1 % OINT Apply to affected areas TID for up to 2 weeks TRIAMCINOLONE ACETONIDE 0.1 % OINT 6381300 TRIAMCINOLONE ACETONIDE Inactive PREDNISONE 20 MG TAB 2 tabs daily for 3 days, 1 tab daily for 3 days, 1/2 tab daily for 2 days PREDNISONE 20 MG TAB 796303 PREDNISONE Inactive PREDNISONE 20 MG TAB 2 tabs daily for 3 days, 1 tab daily for 3 days, 1/2 tab daily for 2 days PREDNISONE 20 MG TAB 776122 PREDNISONE Inactive BACTRIM DS 800-160 MG TABS 1 po BID x 7 days BACTRIM DS 800-160 MG TABS SULFAMETHOXAZOLE-TRIMETHOPRIM Inactive Immunizations Vaccine Administration Date Value Standard Description Seasonal influenza vaccine, injectable, containing preservative, for > 3 years old (Afluria, FluLaval, Fluzone, Fluvirin, Fluarix, Agriflu(>=18 yo)) Fluzone (>3 yrs.) [[id number]] Influenza, seasonal, injectable influenza immunization (Flu Vax) has been administered 02/22/2012 influenza virus vaccine, unspecified formulation Seasonal influenza vaccine, injectable, containing preservative, for > 3 years old (Afluria, FluLaval, Fluzone, Fluvirin, Fluarix, Agriflu(>=18 yo)) Fluzone (>3 yrs.) [[id number]] Influenza, seasonal, injectable Vital Signs Date Name [...] Panel - Chemistry sodium, serum 139 mmol/L 715-838 6287/11/27 potassium, serum 4.9 mmol/L 3.5-5.2 chloride, serum 104 mmol/L 98-107 carbon dioxide, venous blood 29.9 mmol/L 21.0-32.0 blood glucose 128 mg/dL 65-110 calcium, serum 9.6 mg/dL 8.5-10.1 urea nitrogen, blood 30 mg/dL 7-18 creatinine, serum 1.50 mg/dL 0.60-1.30 Lab Report: CBC W/ DIFF, CMP, TSH, PREALBUMIN - Chemistry sodium, serum 141 mmol/L potassium, serum 3.9 mmol/L chloride, serum 104 mmol/L carbon dioxide, venous blood 28 mmol/L urea nitrogen, blood 13 mg/dL blood glucose 98 mg/dL creatinine, serum 1.20 mg/dL aspartate aminotransferase (SGOT), serum 29 U/L alanine aminotransferase (SGPT), serum 35 U/L bilirubin, serum, total 0.4 mg/dL alkaline phosphatase, serum 57 U/L calcium, serum 9.3 mg/dL thyroid stimulating hormone, serum 0.38 u[iU]/mL Lab Report: CBC W/ DIFF, CMP, TSH, PREALBUMIN - Hematology hematocrit, blood 37.9 % hemoglobin, blood 12.3 g/dL erythrocyte (RBC) count 4.10 10*6/mm3 leukocyte count, blood 7.9 10*3/mm3 mean corpuscular volume, RBC 92 fL mean corpuscular hemoglobin, RBC 30.1 pg red blood cell distribution width 11.5 % platelet count 298 10*3/mm3 Lab Report: Comp. Metabolic Panel - Chemistry sodium, serum 139 mmol/L 684-294 5531/11/22 potassium, serum 4.3 mmol/L 3.5-5.2 chloride, serum [...] HGBA1C - Chemistry sodium, serum 142 mmol/L 161-263 9257/10/22 potassium, serum 4.9 mmol/L 3.5-5.2 chloride, serum [...] 0.30 mg/dL 0.00-1.00 cholesterol, serum 139 mg/dL 311-828 9165/10/22 triglyceride, serum, fasting 168 mg/dL 30-200 HDL cholesterol, serum 40 mg/dL 32-96 LDL cholesterol, serum 65 mg/dL 0-130 hemoglobin A1C, blood, as % of total hemoglobin 6.2 % 4.3-6.0 sodium, serum 144 mmol/L 350-654 0649/04/16 potassium, serum 4.2 mmol/L 3.5-5.2 chloride, serum [...] 0.20 mg/dL 0.00-1.00 cholesterol, serum 133 mg/dL 026-095 9203/04/16 triglyceride, serum, fasting 142 mg/dL 30-200 HDL [...] Yes Encounters Code Encounter Date Provider Facility CPT-69778 Level 4 Est. Patient 09:45:25 CDT Tu Landeros MD [facility] CPT-04822 Level 4 Est. Patient 09:05:20 SOURCING CONSULTANT Tu Landeros MD [facility] CPT-76420 Level 4 Est. Patient 14:09:06 CDT Tu Landeros MD [facility] CPT-48446 Level 3 Est. Patient 13:36:54 CDT Tu Landeros MD [facility] CPT-79773 Level 3 Est. Patient 08:59:14 CDT Tu Landeros MD [facility] CPT-70354 Level 3 Est. Patient 13:48:35 CDT Fab Morales DO [facility] CPT-58473 Level 4 Est. Patient 10:05:48 CDT Tu Landeros MD [facility] CPT-78225 Level 3 Est. Patient 13:38:42 CDT Marek BANKS [facility] CPT-90775 Level 5 Est. Patient 08:08:39 CDT Jerrica FRANCIS [facility] CPT-97072 Level 4 Est. Patient 14:23:38 CDT Tu Landeros MD [facility] CPT-68800 Level 3 Est. Patient 11:44:04 CDT Tu Landeros MD [facility] CPT-77874 Level 3 Est. Patient 11:03:20 SOURCING CONSULTANT Tu Landeros MD [facility] CPT-13458 Level 3 Est. Patient 11:03:14 SOURCING CONSULTANT Tu Landeros MD [facility] CPT-29668 Level 3 Est. Patient 12:42:49 CDT Tu Landeros MD [facility] CPT-03402 Level 3 Est. Patient 11:52:06 CDT Tu Landeros MD [facility] CPT-94083 Level 3 Est. Patient 13:58:11 CDT Tu Landeros MD [facility] CPT-50291 Level 3 Est. Patient 17:50:07 CDT Fab Morales DO [facility] CPT-78866 Level 3 Est. Patient 12:06:29 CDT Elvira Cervantes MD PhD [facility] CPT-51319 Level 3 Est. Patient 15:50:32 CDT Tu Landeros MD [facility] CPT-43930 Level 4 Est. Patient 16:08:29 CDT Tu Landeros MD [facility] CPT-23225 Level 3 Est. Patient 16:04:19 CDT Tu Landeros MD [facility] CPT-43434 Level 3 Est. Patient 11:22:30 SOURCING CONSULTANT Tu Landeros MD [facility] CPT-59292 Level 4 Est. Patient 16:24:02 SOURCING CONSULTANT Tu Landeros MD [facility] CPT-67870 Level 3 Est. Patient 17:21:23 SOURCING CONSULTANT Tu Landeros MD [facility] Procedures Code Procedure Name Date Entry Date Standard Description CPT-000 Give Zostavax 14:09:06 CDT CPT-07491 Administration single or combination vaccine inc oral 15 :19:04 CDT CPT-74150 Zoster Vaccine (Zostavax) 15:19:04 CDT CPT-38307 Administration single or combination vaccine inc oral 20 :51:03 CDT CPT-77519 Influenza split virus > age 3 20:51:03 CDT CPT-77558 No Charge Offi Visit 14:52:03 CDT CPT-OV Office Visit 14:57:43 CDT CPT-OV Office Visit 15:22:32 CDT CPT-39029 Administration single or combination vaccine inc oral 11 :33:15 CDT CPT-52997 Influenza split virus > age 3 11:33:15 CDT
--- OUTSIDE RECORDS SUMMARY | 2018-04-25 19:23 | XMS REPORT | Clinical Summary ---
Author Author Admin, SACHI Organization [facility] Address Unknown Phone Allergies, Adverse Reactions, Alerts [...] Generic Name NDC Status Provider Patient Instruction CIPRO 500 MG TABS 1 bid x 14 days start 09-28-13 CIPROFLOXACIN HCL 14626062515 Active [place] Active ALIGN 4 MG CAPS 1 tid PROBIOTIC PRODUCT 09222561769 Active Gustavo [place] Active BACTRIM DS 800-160 MG TABS 1 bid x 14 day start 09-28-13 SULFAMETHOXAZOLE-TRIMETHOPRIM 20581035742 Active Gustavo [place] Active GABAPENTIN 300 MG CAPS 1 tid GABAPENTIN 23870377033 Active Gustavo [place] Active SUPER B COMPLEX/VITAMIN C TABS 1 qd B COMPLEX-C 51325696307 Active [place] Active TRILIPIX 135 MG CPDR 1 q hs CHOLINE FENOFIBRATE 53159301590 Active Gustavo Norma Active FENOFIBRATE 145 MG TABS 1 po qd FENOFIBRATE 10390184500 No Longer Active Gustavo [place] Active OMEPRAZOLE 20 MG TBEC 1 PO 30 MIN BEFORE 1ST MEAL OMEPRAZOLE 49138060705 No Longer Active Gust[place] Active SIMVASTATIN 40 MG TABS Take one by mouth daily SIMVASTATIN 27939662289 No Longer Active Gustavo [place] Active GABAPENTIN 100 MG CAPS 1 po bid GABAPENTIN 86344028926 Active [place] Active CARVEDILOL 12.5 MG TABS Take 1 by mouth 30 min. before first meal CARVEDILOL 71031603266 Active Gustavo [place] Active VENLAFAXINE HCL 37.5 MG TABS 1 bid VENLAFAXINE HCL 10170867659 Active [place] Active VENLAFAXINE HCL 75 MG TABS 1 po BID VENLAFAXINE HCL 70531411671 No Longer Active Gustavo Norma Active HYDROCODONE-ACETAMINOPHEN 5-325 MG TABS 1 tab by mouth every 6 hours as needed for pain HYDROCODONE-ACETAMINOPHEN 66535977060 Active Tu Landeros MD Active METFORMIN HCL 500 MG TB24 1.5 po BID METFORMIN HCL 59722052797 Active Tu Landeros MD Active CIPRO 500 MG TAB 1 tablet by mouth twice daily CIPROFLOXACIN HCL 93250152061 No Longer Active Tu Landeros MD Active VENLAFAXINE HCL 37.5 MG TABS 1 po BID VENLAFAXINE HCL 60471407109 No Longer Active Suze Corey RMA Active [employer] STOOL SOFTENER 100 MG CAPS 1 tab daily DOCUSATE SODIUM 99971333259 Active Tu Landeros MD Active LAMISIL 250 MG TAB 1 po qd TERBINAFINE HCL 50134581839 No Longer Active Tu Landeros MD Active LORTAB 5 5-500 MG TABS 1/2 to 1 tablet by mouth every 4 hours as needed for pain HYDROCODONE-ACETAMINOPHEN 85298325619 No Longer Active Tu Landeros MD Active ENALAPRIL MALEATE 20 MG TABS 1.5 po qd ENALAPRIL MALEATE 52506912801 Active Tu Landeros MD Active HYDROCODONE-ACETAMINOPHEN 5-500 MG TABS take one po Q 4-6 hours prn HYDROCODONE-ACETAMINOPHEN 18393419884 No Longer Active Tu Landeros MD Active BACTRIM DS 800-160 MG TABS 1 po BID x 7 days SULFAMETHOXAZOLE-TRIMETHOPRIM 09546886464 No Longer Active Tu Landeros MD Active VENLAFAXINE HCL 75 MG TABS 1 po BID VENLAFAXINE HCL 51443417023 No Longer Active Elvira Cervantes MD PhD Active TRAMADOL HCL 50 MG TABS 1 tablets every 6 hours as needed for pain TRAMADOL HCL 97978632903 No Longer Active Tu Landeros MD Active TRUERESULT BLOOD GLUCOSE W/DEVICE KIT use to test blood sugar tid dx: 250.00 BLOOD GLUCOSE MONITORING SUPPL 96807215561 Active Tu Landeros MD Active TRUETEST TEST STRP test blood sugar three times daily dx: 250.00 GLUCOSE BLOOD 89479309736 Active Tu Landeros MD Active ACCU-CHEK FASTCLIX LANCETS MISC Use to check bloodsugar three times daily as needed LANCETS 86843569839 No Longer Active Tu Landeros MD Active ACCU-CHEK KEYONA PLUS STRP Use for testing bloodsugars three times daily as needed GLUCOSE BLOOD 13634886837 No Longer Active Tu Landeros MD Active ACCU-CHEK KEYONA PLUS W/DEVICE KIT Use for testing bloodsugars three times daily as needed BLOOD GLUCOSE MONITORING SUPPL 40956963844 No Longer Active Tu Landeros MD Active SPIRONOLACTONE 25 MG TAB 0.5 tablet by mouth daily SPIRONOLACTONE 04847572689 No Longer Active Tu Landeros MD Active ALPRAZOLAM 0.5 MG TABS 1 tab every 6hrs as needed ALPRAZOLAM 49757012933 No Longer Active Tu Landeros MD Active B-12 100 MCG TABS Take one by mouth daily CYANOCOBALAMIN 52216939878 Active Tu Landeros MD Active AUGMENTIN 875-125 MG TAB 1 tab by mouth twice daily with food AMOXICILLIN-POT CLAVULANATE 86620364132 No Longer Active Tu Landeros MD Active PREDNISONE 20 MG TAB 2 tabs daily for 3 days, 1 tab daily for 3 days, 1/2 tab daily for 2 days PREDNISONE 42169688289 No Longer Active Tu Landeros MD Active XANAX 0.5 MG TABS 1 tablet every 6 hrs prn ALPRAZOLAM 22650526524 No Longer Active Tu Landeros MD Active PREDNISONE 20 MG TAB 2 tabs daily for 3 days, 1 tab daily for 3 days, 1/2 tab daily for 2 days PREDNISONE 72399695875 No Longer Active Tu Landeros MD Active TRIAMCINOLONE ACETONIDE 0.1 % OINT Apply to affected areas TID for up to 2 weeks TRIAMCINOLONE ACETONIDE 08149112256 No Longer Active Tu Landeros MD Active LORTAB 5 5-500 MG TABS 1/2 to 1 tablet by mouth every 4 hours as needed for pain HYDROCODONE-ACETAMINOPHEN 66135010453 No Longer Active Tu Landeros MD Active MULTIVITAMINS TABS Take one by mouth daily MULTIPLE VITAMIN 31548085942 No Longer Active Tu Landeros MD Active MELATONIN 5 MG TABS Take one by mouth daily MELATONIN 40874262868 No Longer Active Tu Landeros MD Active SOMA 350 MG TAB 1 po q 6 hours prn spasm CARISOPRODOL 32708310144 No Longer Active Tu Landeros MD Active MECLIZINE HCL 25 MG CHEW TAB 1 four times a day as needed for dizziness 08/05 MECLIZINE HCL 03724605405 No Longer Active Fab Morales DO Active ANGEL BREEZE 2 TEST DISK test tid prn GLUCOSE BLOOD 24771519198 No Longer Active Negra Scott RN Active DICLOFENAC SODIUM 50 MG TBEC 1 tablet by mouth three times a day as needed DICLOFENAC SODIUM 19766208466 Active Tu Landeros MD Active REGLAN 10 MG TAB 1 po TID PRN [place] METOCLOPRAMIDE HCL 35779498513 No Longer Active Tu Landeros MD Active METFORMIN HCL 500 MG TABS 1 PO BID METFORMIN HCL 36873757642 No Longer Active Tu Landeros MD Active AMBIEN 10 MG TAB 1 tab by mouth at bedtime as needed for sleep ZOLPIDEM TARTRATE 35869183049 No Longer Active Tu Landeros MD Active FLUOXETINE HCL 40 MG CAPS 1 po q day FLUOXETINE HCL 87719751002 No Longer Active Mayra [place] Active FISH OIL 1000 MG CAPS Take one by mouth daily OMEGA-3 FATTY ACIDS 73623504380 Active Tu Landeros MD Active GLUCOSAMINE 500 MG TABS Take 2 tab po qd GLUCOSAMINE 47575961166 Active Tu Landeros MD Active TRILIPIX 135 MG CPDR 1 po qd CHOLINE FENOFIBRATE 87754264474 No Longer Active Tu Landeros MD Active ASPIRIN 81 MG CHEW TAB 1 tablet by mouth daily ASPIRIN 07258218376 Active Tu Landeros MD Active FUROSEMIDE 40 MG TAB 1 tablet by mouth daily FUROSEMIDE 22230229143 Active Tu Landeros MD Active REQUIP 2 MG TABS Take one tablet at bedtime prn ROPINIROLE HCL 75812802633 Active Tu Landeros MD Active KLOR-CON 10 10 MEQ CR-TABS TAKE 2 TABS DAILY POTASSIUM CHLORIDE 89392163874 Active Tu Landeros MD Active AMBIEN 10 MG TAB 1 tab by mouth at bedtime as needed for sleep AMBIEN 10 MG TAB 879022 ZOLPIDEM TARTRATE Inactive METFORMIN HCL 500 MG TABS 1 PO BID METFORMIN HCL 500 MG TABS 046083 METFORMIN HCL Inactive REGLAN 10 MG TAB 1 po TID PRN [place] REGLAN 10 MG TAB 029376 METOCLOPRAMIDE HCL Inactive MECLIZINE HCL 25 MG CHEW TAB 1 four times a day as needed for dizziness 08/05 MECLIZINE HCL 25 MG CHEW TAB 017493 MECLIZINE HCL Inactive SOMA 350 MG TAB 1 po q 6 hours prn spasm SOMA 350 MG TAB 863626 CARISOPRODOL Inactive MELATONIN 5 MG TABS Take one by mouth daily MELATONIN 5 MG TABS 620779 MELATONIN Inactive MULTIVITAMINS TABS Take one by mouth daily MULTIVITAMINS TABS MULTIPLE VITAMIN Inactive LORTAB 5 5-500 MG TABS 1/2 to 1 tablet by mouth every 4 hours as needed for pain LORTAB 5 5-500 MG TABS HYDROCODONE- ACETAMINOPHEN Inactive XANAX 0.5 MG TABS 1 tablet every 6 hrs prn XANAX 0.5 MG TABS 275640 ALPRAZOLAM Inactive AUGMENTIN 875-125 MG TAB 1 tab by mouth twice daily with food AUGMENTIN 875-125 MG TAB 308988 AMOXICILLIN-POT CLAVULANATE Inactive ALPRAZOLAM 0.5 MG TABS 1 tab every 6hrs as needed ALPRAZOLAM 0.5 MG TABS 965283 ALPRAZOLAM Inactive SPIRONOLACTONE 25 MG TAB 0.5 tablet by mouth daily SPIRONOLACTONE 25 MG TAB 745755 SPIRONOLACTONE Inactive ACCU-CHEK KEYONA PLUS W/DEVICE KIT Use for testing bloodsugars three times daily as needed ACCU-CHEK KEYONA PLUS W/DEVICE KIT BLOOD GLUCOSE MONITORING SUPPL Inactive ACCU-CHEK KEYONA PLUS STRP Use for testing bloodsugars three times daily as needed ACCU-CHEK KEYONA PLUS STRP GLUCOSE BLOOD Inactive ACCU-CHEK FASTCLIX LANCETS MISC Use to check bloodsugar three times daily as needed ACCU-CHEK FASTCLIX LANCETS MISC 04366831216 LANCETS Inactive TRAMADOL HCL 50 MG TABS 1 tablets every 6 hours as needed for pain TRAMADOL HCL 50 MG TABS 613469 TRAMADOL HCL Inactive VENLAFAXINE HCL 75 MG TABS 1 po BID VENLAFAXINE HCL 75 MG TABS 877866 VENLAFAXINE HCL Inactive HYDROCODONE-ACETAMINOPHEN 5-500 MG TABS take one po Q 4-6 hours prn HYDROCODONE-ACETAMINOPHEN 5-500 MG TABS 147564 HYDROCODONE- ACETAMINOPHEN Inactive LORTAB 5 5-500 MG TABS 1/2 to 1 tablet by mouth every 4 hours as needed for pain LORTAB 5 5-500 MG TABS HYDROCODONE- ACETAMINOPHEN Inactive LAMISIL 250 MG TAB 1 po qd LAMISIL 250 MG TAB 794083 TERBINAFINE HCL Inactive VENLAFAXINE HCL 37.5 MG TABS 1 po BID VENLAFAXINE HCL 37.5 MG TABS 903226 VENLAFAXINE HCL Inactive CIPRO 500 MG TAB 1 tablet by mouth twice daily CIPRO 500 MG TAB 522091 CIPROFLOXACIN HCL Inactive VENLAFAXINE HCL 75 MG TABS 1 po BID VENLAFAXINE HCL 75 MG TABS 801849 VENLAFAXINE HCL Inactive SIMVASTATIN 40 MG TABS Take one by mouth daily SIMVASTATIN 40 MG TABS 603449 SIMVASTATIN Inactive OMEPRAZOLE 20 MG TBEC 1 PO 30 MIN BEFORE 1ST MEAL OMEPRAZOLE 20 MG TBEC 186121 OMEPRAZOLE Inactive FENOFIBRATE 145 MG TABS 1 po qd FENOFIBRATE 145 MG TABS 480229 FENOFIBRATE Inactive TRIAMCINOLONE ACETONIDE 0.1 % OINT Apply to affected areas TID for up to 2 weeks TRIAMCINOLONE ACETONIDE 0.1 % OINT 3821863 TRIAMCINOLONE ACETONIDE Inactive PREDNISONE 20 MG TAB 2 tabs daily for 3 days, 1 tab daily for 3 days, 1/2 tab daily for 2 days PREDNISONE 20 MG TAB 300872 PREDNISONE Inactive PREDNISONE 20 MG TAB 2 tabs daily for 3 days, 1 tab daily for 3 days, 1/2 tab daily for 2 days PREDNISONE 20 MG TAB 176701 PREDNISONE Inactive BACTRIM DS 800-160 MG TABS 1 po BID x 7 days BACTRIM DS 800-160 MG TABS SULFAMETHOXAZOLE-TRIMETHOPRIM Inactive Immunizations Vaccine Administration Date Value Standard Description Seasonal influenza vaccine, injectable, containing preservative, for > 3 years old (Afluria, FluLaval, Fluzone, Fluvirin, Fluarix, Agriflu(>=18 yo)) Fluzone (>3 yrs.) [[id number]] Influenza, seasonal, injectable influenza immunization (Flu Vax) has been administered 02/22/2012 influenza virus vaccine, unspecified formulation Seasonal influenza vaccine, injectable, containing preservative, for > 3 years old (Afluria, FluLaval, Fluzone, Fluvirin, Fluarix, Agriflu(>=18 yo)) Fluzone (>3 yrs.) [[id number]] Influenza, seasonal, injectable Vital Signs Date Name [...] E&M - 3141-9 314.50 [lb_av] Weight Measured blood pressure, diastolic - 8462-4 84 mm[Hg] BP ac blood pressure, systolic - 8480-6 140 mm[Hg] BP sys height E&M - 8302-2 62.5 [in_us] Bdy height pulse rate E&M - 8867-4 63 /min Heart rate temperature E&M 97.8 [degF] Body temperature weight E&M - 3141-9 317 [lb_av] Weight Measured blood pressure, diastolic - 8462-4 80 mm[Hg] BP ac blood pressure, systolic - 8480-6 148 mm[Hg] BP sys height E&M - 8302-2 62.5 [in_us] Bdy height pulse rate E&M - 8867-4 72 /min Heart rate temperature E&M 97.3 [degF] Body temperature weight E&M - 3141-9 317 [lb_av] Weight Measured blood pressure, diastolic - 8462-4 67 mm[Hg] BP ac blood pressure, systolic - 8480-6 126 mm[Hg] BP sys height E&M - 8302-2 62.5 [in_us] Bdy height pulse rate E&M - 8867-4 69 /min Heart rate temperature E&M 96.6 [degF] Body temperature weight E&M - 3141-9 317 [lb_av] Weight Measured blood pressure, diastolic - 8462-4 76 mm[Hg] BP ac blood pressure, systolic - 8480-6 174 mm[Hg] BP sys height E&M - 8302-2 62.5 [in_us] Bdy height pulse rate E&M - 8867-4 59 /min Heart rate temperature E&M 98. [degF] Body temperature weight E&M - 3141-9 322 [lb_av] Weight Measured Diagnostic Results Date Name Value Unit Range Description Lab Report: Basic Metabolic Panel - Chemistry sodium, serum 139 mmol/L 235-467 4974/11/27 potassium, serum 4.9 mmol/L 3.5-5.2 chloride, serum [...] Panel - Chemistry sodium, serum 139 mmol/L 041-482 6290/11/22 potassium, serum 4.3 mmol/L 3.5-5.2 chloride, serum [...] 4.2 mmol/L 3.5-5.2 sodium, serum 144 mmol/L 735-169 7238/04/16 urea nitrogen, blood 22 mg/dL 7-18 creatinine, serum 1.10 mg/dL 0.60-1.30 alanine aminotransferase (SGPT), serum 21 U/L 12-78 aspartate aminotransferase (SGOT), serum 18 U/L 15-37 alkaline phosphatase, serum 84 U/L 50-136 calcium, serum 8.9 mg/dL 8.5-10.1 bilirubin, serum, total 0.20 mg/dL 0.00-1.00 cholesterol, serum 133 mg/dL 880-438 2430/04/16 triglyceride, serum, fasting 142 mg/dL 30-200 HDL cholesterol, serum 38 mg/dL 32-96 LDL cholesterol, serum 67 mg/dL 0-130 hemoglobin A1C, blood, as % of total hemoglobin 7.1 % 4.3-6.0 sodium, serum 142 mmol/L 150-782 7142/10/22 potassium, serum 4.9 mmol/L 3.5-5.2 chloride, serum [...] 0.30 mg/dL 0.00-1.00 cholesterol, serum 139 mg/dL 024-327 7206/10/22 triglyceride, serum, fasting 168 mg/dL 30-200 HDL [...] mg/dL Encounters Code Encounter Date Provider Facility CPT-47929 Level 4 Est. Patient 09:45:25 CDT Tu Landeros MD [facility] CPT-22658 Level 4 Est. 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 CPT-51851 Level 4 Est. Patient 14:09:06 CDT Tu Landeros MD [facility] CPT-33956 Level 3 Est. Patient 13:36:54 CDT Tu Landeros MD [facility] CPT-19471 Level 3 Est. Patient 08:59:14 CDT Tu Landeros MD [facility] CPT-93391 Level 3 Est. Patient 13:48:35 CDT Fab Morales DO [facility] CPT-33749 Level 4 Est. Patient 10:05:48 CDT Tu Landeros MD [facility] CPT-96602 Level 3 Est. Patient 13:38:42 CDT Marek BANKS [facility] CPT-48995 Level 5 Est. Patient 08:08:39 CDT Jerrica FRANCIS [facility] CPT-28079 Level 4 Est. Patient 14:23:38 CDT Tu Landeros MD [facility] CPT-41964 Level 3 Est. Patient 11:44:04 CDT Tu Landeros MD [facility] CPT-37268 Level 3 Est. 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 Patient 11:03:14 COACH OPERATOR Tu Landeros MD [facility] CPT-06597 Level 3 Est. Patient 12:42:49 CDT Tu Landeros MD [facility] CPT-52798 Level 3 Est. Patient 11:52:06 CDT Tu Landeros MD [facility] CPT-45936 Level 3 Est. Patient 13:58:11 CDT Tu Landeros MD [facility] CPT-23011 Level 3 Est. Patient 17:50:07 CDT Fab Morales DO [facility] CPT-53348 Level 3 Est. Patient 12:06:29 CDT Elvira Cervantes MD [facility] CPT-80135 Level 3 Est. Patient 15:50:32 CDT Tu Landeros MD [facility] CPT-62573 Level 4 Est. Patient 16:08:29 CDT Tu Landeros MD [facility] CPT-79264 Level 3 Est. Patient 16:04:19 CDT Tu Landeros MD [facility] CPT-07729 Level 3 Est. Patient 11:22:30 COACH OPERATOR Tu Landeros MD [facility] CPT-51441 Level 4 Est. Patient 16:24:02 COACH OPERATOR Tu Landeros MD [facility] CPT-81711 Level 3 Est. Patient 17:21:23 COACH OPERATOR Tu Landeros MD [facility] Procedures Code Procedure Name Date Entry Date Standard Description CPT-OV Office Visit 15:45:11 CDT CPT-000 Give Zostavax 14:09:06 CDT CPT-87653 Administration single or combination vaccine inc oral 15 :19:04 CDT CPT-12249 Zoster Vaccine (Zostavax) 15:19:04 CDT CPT-26806 Administration single or combination vaccine inc oral 20 :51:03 CDT CPT-89189 Influenza split virus > age 3 20:51:03 CDT CPT-91793 No Charge Offi Visit 14:52:03 CDT CPT-OV Office Visit 14:57:43 CDT CPT-OV Office Visit 15:22:32 CDT CPT-05372 Administration single or combination vaccine inc oral 11 :33:15 CDT CPT-22238 Influenza split virus > age 3 11:33:15 CDT
--- OUTSIDE RECORDS SUMMARY | 2018-04-25 19:24 | XMS REPORT | Clinical Summary ---
[...] Cramp of limb FREQUENCY, URINARY 788.41 Correction Elvria Cervantes MD PhD Urinary frequency FEVER UNSPECIFIED [...] peripheral neuropathy Upper respiratory infection, viral 465.9 Active Tu [...] Generic Name NDC Status Provider Patient Instruction TRAMADOL HCL 50 MG TABS 1-2 tablets every 6 hours as needed for pain TRAMADOL HCL 17273269772 Active Tu Landeros MD Active HYDROCODONE-ACETAMINOPHEN 5-325 MG TABS 1 tab by mouth every 6 hours as needed for pain HYDROCODONE-ACETAMINOPHEN 31236513201 No Longer Active Tu Landeros MD Active OMEPRAZOLE 20 MG CPDR 1 po q a.m. OMEPRAZOLE 82604358538 Active Tu Landeros MD Active GABAPENTIN 100 MG CAPS 1 po bid GABAPENTIN 43887692576 No Longer Active Tu Landeros MD Active B-12 100 MCG TABS Take one by mouth daily CYANOCOBALAMIN 41542907045 No Longer Active Tu Landeros MD Active CIPRO 500 MG TABS 1 bid x 14 days start 09-28-13 CIPROFLOXACIN HCL 67332925254 Active Tu Landeros MD Active GABAPENTIN 100 MG CAPS by mouth twice a day GABAPENTIN 13955461405 Active Tu Landeros MD Active BACTRIM DS 800-160 MG TABS 1 bid x 14 day start 09-28-13 SULFAMETHOXAZOLE-TRIMETHOPRIM 80705981277 No Longer Active Tu Landeros MD Active SIMVASTATIN 40 MG TABS 1 tab daily at bedtime SIMVASTATIN 30104886408 Active uT Landeros MD Active CARVEDILOL 12.5 MG TABS 1 po BID CARVEDILOL 32285701302 Active Lesli Kellogg APRN Active ALIGN 4 MG CAPS 1 tid PROBIOTIC PRODUCT 51883970353 Active JASPREET Perez Active SUPER B COMPLEX/VITAMIN C TABS 1 qd B COMPLEX-C 72127224491 Active JASPREET Perez Active TRILIPIX 135 MG CPDR 1 q hs CHOLINE FENOFIBRATE 25491540955 Active Tu Landeros MD Active FENOFIBRATE 145 MG TABS 1 po qd FENOFIBRATE 98842976984 No Longer Active JASPREET Perez Active OMEPRAZOLE 20 MG TBEC 1 PO 30 MIN BEFORE 1ST MEAL OMEPRAZOLE 76222130888 No Longer Active JASPREET Perez Active SIMVASTATIN 40 MG TABS Take one by mouth daily SIMVASTATIN 02417824551 No Longer Active JASPREET Perez Active VENLAFAXINE HCL 37.5 MG TABS 1 bid VENLAFAXINE HCL 50877019806 Active Tu Landeros MD Active VENLAFAXINE HCL 75 MG TABS 1 po BID VENLAFAXINE HCL 05295497093 No Longer Active GustavoJASPREET Archer Active METFORMIN HCL 500 MG TB24 1.5 po BID METFORMIN HCL 69142216806 Active Tu Landeros MD Active CIPRO 500 MG TAB 1 tablet by mouth twice daily CIPROFLOXACIN HCL 19649654968 No Longer Active Tu Landeros MD Active VENLAFAXINE HCL 37.5 MG TABS 1 po BID VENLAFAXINE HCL 03122357198 No Longer Active Suzebianca Nicole RMA Active [employer] STOOL SOFTENER 100 MG CAPS 1 tab daily DOCUSATE SODIUM 70002601981 Active Tu Landeros MD Active LAMISIL 250 MG TAB 1 po qd TERBINAFINE HCL 34896942795 No Longer Active Tu Landeros MD Active LORTAB 5 5-500 MG TABS 1/2 to 1 tablet by mouth every 4 hours as needed for pain HYDROCODONE-ACETAMINOPHEN 98930629354 No Longer Active Tu Landeros MD Active ENALAPRIL MALEATE 20 MG TABS 1.5 po qd ENALAPRIL MALEATE 24785783554 Active Tu Landeros MD Active HYDROCODONE-ACETAMINOPHEN 5-500 MG TABS take one po Q 4-6 hours prn HYDROCODONE-ACETAMINOPHEN 22585507737 No Longer Active Tu Landeros MD Active BACTRIM DS 800-160 MG TABS 1 po BID x 7 days SULFAMETHOXAZOLE-TRIMETHOPRIM 00594191560 No Longer Active Tu Landeros MD Active VENLAFAXINE HCL 75 MG TABS 1 po BID VENLAFAXINE HCL 01715523124 No Longer Active Elvira Cervantes MD PhD Active TRAMADOL HCL 50 MG TABS 1 tablets every 6 hours as needed for pain TRAMADOL HCL 54546505281 No Longer Active Tu Landeros MD Active TRUERESULT BLOOD GLUCOSE W/DEVICE KIT use to test blood sugar tid dx: 250.00 BLOOD GLUCOSE MONITORING SUPPL 82783488557 Active Tu Landeros MD Active TRUETEST TEST STRP test blood sugar three times daily dx: 250.00 GLUCOSE BLOOD 64519249184 Active Tu Landeros MD Active ACCU-CHEK FASTCLIX LANCETS MISC Use to check bloodsugar three times daily as needed LANCETS 86286360212 No Longer Active Tu Landeros MD Active ACCU-CHEK KEYONA PLUS STRP Use for testing bloodsugars three times daily as needed GLUCOSE BLOOD 79894797301 No Longer Active Tu Landeros MD Active ACCU-CHEK KEYONA PLUS W/DEVICE KIT Use for testing bloodsugars three times daily as needed BLOOD GLUCOSE MONITORING SUPPL 08637017382 No Longer Active Tu Landeros MD Active SPIRONOLACTONE 25 MG TAB 0.5 tablet by mouth daily SPIRONOLACTONE 08052388024 No Longer Active Tu Landeros MD Active ALPRAZOLAM 0.5 MG TABS 1 tab every 6hrs as needed ALPRAZOLAM 70871123555 No Longer Active Tu Landeros MD Active AUGMENTIN 875-125 MG TAB 1 tab by mouth twice daily with food AMOXICILLIN-POT CLAVULANATE 04758764027 No Longer Active Tu Landeros MD Active PREDNISONE 20 MG TAB 2 tabs daily for 3 days, 1 tab daily for 3 days, 1/2 tab daily for 2 days PREDNISONE 84967688099 No Longer Active Tu Landeros MD Active XANAX 0.5 MG TABS 1 tablet every 6 hrs prn ALPRAZOLAM 56024631049 No Longer Active Tu Landeros MD Active PREDNISONE 20 MG TAB 2 tabs daily for 3 days, 1 tab daily for 3 days, 1/2 tab daily for 2 days PREDNISONE 10217817736 No Longer Active Tu Landeros MD Active TRIAMCINOLONE ACETONIDE 0.1 % OINT Apply to affected areas TID for up to 2 weeks TRIAMCINOLONE ACETONIDE 91006244896 No Longer Active Tu Landeros MD Active LORTAB 5 5-500 MG TABS 1/2 to 1 tablet by mouth every 4 hours as needed for pain HYDROCODONE-ACETAMINOPHEN 35030457991 No Longer Active Tu Landeros MD Active MULTIVITAMINS TABS Take one by mouth daily MULTIPLE VITAMIN 91320886560 No Longer Active Tu Landeros MD Active MELATONIN 5 MG TABS Take one by mouth daily MELATONIN 64761367345 No Longer Active Tu Landeros MD Active SOMA 350 MG TAB 1 po q 6 hours prn spasm CARISOPRODOL 45877123019 No Longer Active Tu Landeros MD Active MECLIZINE HCL 25 MG CHEW TAB 1 four times a day as needed for dizziness 08/05 MECLIZINE HCL 16610242140 No Longer Active Fab Morales DO Active ANGEL BREEZE 2 TEST DISK test tid prn GLUCOSE BLOOD 40650282840 No Longer Active Negra Scott RN Active DICLOFENAC SODIUM 50 MG TBEC 1 tablet by mouth three times a day as needed DICLOFENAC SODIUM 61658981605 Active Tu Landeros MD Active REGLAN 10 MG TAB 1 po TID PRN [place] METOCLOPRAMIDE HCL 63152868099 No Longer Active Tu Landeros MD Active METFORMIN HCL 500 MG TABS 1 PO BID METFORMIN HCL 42795535933 No Longer Active Tu Landeros MD Active AMBIEN 10 MG TAB 1 tab by mouth at bedtime as needed for sleep ZOLPIDEM TARTRATE 69206838621 No Longer Active Tu Landeros MD Active FLUOXETINE HCL 40 MG CAPS 1 po q day FLUOXETINE HCL 10883183602 No Longer Active Mayra Peridot Active FISH OIL 1000 MG CAPS Take one by mouth daily OMEGA-3 FATTY ACIDS 66570629058 Active Tu Landeros MD Active GLUCOSAMINE 500 MG TABS Take 2 tab po qd GLUCOSAMINE 44345115574 Active Tu Landeros MD Active TRILIPIX 135 MG CPDR 1 po qd CHOLINE FENOFIBRATE 31098194590 No Longer Active Tu Landeros MD Active ASPIRIN 81 MG CHEW TAB 1 tablet by mouth daily ASPIRIN 42603013544 Active Tu Landeros MD Active FUROSEMIDE 40 MG TAB 1 tablet by mouth daily FUROSEMIDE 83605843583 Active Tu Landeros MD Active REQUIP 2 MG TABS Take one tablet at bedtime prn ROPINIROLE HCL 66220319071 Active Tu Landeros MD Active KLOR-CON 10 10 MEQ CR-TABS TAKE 2 TABS DAILY POTASSIUM CHLORIDE 17101782735 Active Lesli Kellogg PYTHON ARCHITECT Active AMBIEN 10 MG TAB 1 tab by mouth at bedtime as needed for sleep AMBIEN 10 MG TAB 129818 ZOLPIDEM TARTRATE Inactive METFORMIN HCL 500 MG TABS 1 PO BID METFORMIN HCL 500 MG TABS 713377 METFORMIN HCL Inactive REGLAN 10 MG TAB 1 po TID PRN Nausea REGLAN 10 MG TAB 743524 METOCLOPRAMIDE HCL Inactive MECLIZINE HCL 25 MG CHEW TAB 1 four times a day as needed for dizziness 08/05 MECLIZINE HCL 25 MG CHEW TAB 712136 MECLIZINE HCL Inactive SOMA 350 MG TAB 1 po q 6 hours prn spasm SOMA 350 MG TAB 051501 CARISOPRODOL Inactive MELATONIN 5 MG TABS Take one by mouth daily MELATONIN 5 MG TABS 116305 MELATONIN Inactive MULTIVITAMINS TABS Take one by mouth daily MULTIVITAMINS TABS MULTIPLE VITAMIN Inactive LORTAB 5 5-500 MG TABS 1/2 to 1 tablet by mouth every 4 hours as needed for pain LORTAB 5 5-500 MG TABS HYDROCODONE- ACETAMINOPHEN Inactive XANAX 0.5 MG TABS 1 tablet every 6 hrs prn XANAX 0.5 MG TABS 567194 ALPRAZOLAM Inactive AUGMENTIN 875-125 MG TAB 1 tab by mouth twice daily with food AUGMENTIN 875-125 MG TAB 780372 AMOXICILLIN-POT CLAVULANATE Inactive ALPRAZOLAM 0.5 MG TABS 1 tab every 6hrs as needed ALPRAZOLAM 0.5 MG TABS 539290 ALPRAZOLAM Inactive SPIRONOLACTONE 25 MG TAB 0.5 tablet by mouth daily SPIRONOLACTONE 25 MG TAB 198467 SPIRONOLACTONE Inactive ACCU-CHEK KEYONA PLUS W/DEVICE KIT Use for testing bloodsugars three times daily as needed ACCU-CHEK KEYONA PLUS W/DEVICE KIT BLOOD GLUCOSE MONITORING SUPPL Inactive ACCU-CHEK KEYONA PLUS STRP Use for testing bloodsugars three times daily as needed ACCU-CHEK KEYONA PLUS STRP GLUCOSE BLOOD Inactive ACCU-CHEK FASTCLIX LANCETS MISC Use to check bloodsugar three times daily as needed ACCU-CHEK FASTCLIX LANCETS MISC 34020289410 LANCETS Inactive TRAMADOL HCL 50 MG TABS 1 tablets every 6 hours as needed for pain TRAMADOL HCL 50 MG TABS 887909 TRAMADOL HCL Inactive VENLAFAXINE HCL 75 MG TABS 1 po BID VENLAFAXINE HCL 75 MG TABS 372137 VENLAFAXINE HCL Inactive HYDROCODONE-ACETAMINOPHEN 5-500 MG TABS take one po Q 4-6 hours prn HYDROCODONE-ACETAMINOPHEN 5-500 MG TABS HYDROCODONE- ACETAMINOPHEN Inactive LORTAB 5 5-500 MG TABS 1/2 to 1 tablet by mouth every 4 hours as needed for pain LORTAB 5 5-500 MG TABS HYDROCODONE- ACETAMINOPHEN Inactive LAMISIL 250 MG TAB 1 po qd LAMISIL 250 MG TAB 503099 TERBINAFINE HCL Inactive VENLAFAXINE HCL 37.5 MG TABS 1 po BID VENLAFAXINE HCL 37.5 MG TABS 445576 VENLAFAXINE HCL Inactive CIPRO 500 MG TAB 1 tablet by mouth twice daily CIPRO 500 MG TAB 853463 CIPROFLOXACIN HCL Inactive VENLAFAXINE HCL 75 MG TABS 1 po BID VENLAFAXINE HCL 75 MG TABS 260257 VENLAFAXINE HCL Inactive SIMVASTATIN 40 MG TABS Take one by mouth daily SIMVASTATIN 40 MG TABS 197976 SIMVASTATIN Inactive OMEPRAZOLE 20 MG TBEC 1 PO 30 MIN BEFORE 1ST MEAL OMEPRAZOLE 20 MG TBEC 053446 OMEPRAZOLE Inactive FENOFIBRATE 145 MG TABS 1 po qd FENOFIBRATE 145 MG TABS 560736 FENOFIBRATE Inactive BACTRIM DS 800-160 MG TABS 1 bid x 14 day start 09-28-13 BACTRIM DS 800-160 MG TABS SULFAMETHOXAZOLE-TRIMETHOPRIM Inactive B-12 100 MCG TABS Take one by mouth daily B-12 100 MCG TABS CYANOCOBALAMIN Inactive GABAPENTIN 100 MG CAPS 1 po bid GABAPENTIN 100 MG CAPS 610095 GABAPENTIN Inactive HYDROCODONE-ACETAMINOPHEN 5-325 MG TABS 1 tab by mouth every 6 hours as needed for pain HYDROCODONE-ACETAMINOPHEN 5-325 MG TABS 088042 HYDROCODONE-ACETAMINOPHEN Inactive TRIAMCINOLONE ACETONIDE 0.1 % OINT Apply to affected areas TID for up to 2 weeks TRIAMCINOLONE ACETONIDE 0.1 % OINT 6480664 TRIAMCINOLONE ACETONIDE Inactive PREDNISONE 20 MG TAB 2 tabs daily for 3 days, 1 tab daily for 3 days, 1/2 tab daily for 2 days PREDNISONE 20 MG TAB 448874 PREDNISONE Inactive PREDNISONE 20 MG TAB 2 tabs daily for 3 days, 1 tab daily for 3 days, 1/2 tab daily for 2 days PREDNISONE 20 MG TAB 447476 PREDNISONE Inactive BACTRIM DS 800-160 MG TABS 1 po BID x 7 days BACTRIM DS 800-160 MG TABS SULFAMETHOXAZOLE-TRIMETHOPRIM Inactive Immunizations Vaccine Administration Date Value Standard Description Seasonal influenza vaccine, injectable, containing preservative, for > 3 years old (Afluria, FluLaval, Fluzone, Fluvirin, Fluarix, Agriflu(>=18 yo)) Fluzone (>3 yrs.) [ICP960] Influenza, seasonal, injectable influenza immunization (Flu Vax) has been administered 02/22/2012 influenza virus vaccine, unspecified formulation Seasonal influenza vaccine, injectable, containing preservative, for > 3 years old (Afluria, FluLaval, Fluzone, Fluvirin, Fluarix, Agriflu(>=18 yo)) Fluzone (>3 yrs.) [MPQ728] Influenza, seasonal, injectable Vital Signs Date Name Value Unit Range Description blood pressure, diastolic 80 mm[Hg] BP ac blood pressure, systolic 136 mm[Hg] BP sys pulse rate E&M 65 /min Heart rate temperature E&M 98.2 [degF] Body temperature weight E&M 314.2 [lb_av] Weight Measured blood pressure, diastolic 80 mm[Hg] BP ac blood pressure, systolic 150 mm[Hg] BP sys height E&M 65 [in_us] Bdy height pulse rate E&M 71 /min Heart rate temperature E&M 96.8 [degF] Body temperature weight E&M 312 [lb_av] Weight Measured blood pressure, diastolic 85 mm[Hg] BP ac [...] temperature weight E&M 312.13 [lb_av] Weight Measured Diagnostic Results Date Name Value Unit Range Description Chart Maintenance: Outside labs entered on flowsheet - Chemistry hemoglobin A1C, blood, as % of total hemoglobin 6.2 % hemoglobin A1C, blood, as % of total hemoglobin 6.4 % Lab Report: Basic Metabolic Panel - Chemistry sodium, serum 139 mmol/L 155-309 1459/11/27 potassium, serum 4.9 mmol/L 3.5-5.2 chloride, serum [...] Panel - Chemistry sodium, serum 139 mmol/L 099-666 1373/11/22 potassium, serum 4.3 mmol/L 3.5-5.2 chloride, serum [...] HGBA1C - Chemistry sodium, serum 144 mmol/L 305-106 2424/04/16 potassium, serum 4.2 mmol/L 3.5-5.2 chloride, serum [...] 0.20 mg/dL 0.00-1.00 cholesterol, serum 133 mg/dL 705-844 3869/04/16 triglyceride, serum, fasting 142 mg/dL 30-200 HDL cholesterol, serum 38 mg/dL 32-96 LDL cholesterol, serum 67 mg/dL 0-130 hemoglobin A1C, blood, as % of total hemoglobin 7.1 % 4.3-6.0 Lab Report: MICROALBUMIN - Chemistry albumin/creatinine ratio, urine < 30 mg/g mg/g{creat} 0-29 Lab Report: MICROALBUMIN - Lab microalbumin, urine 10 0-19 Office Visit: Consult for Abdominal Wounds - Chemistry cholesterol, target level 200 mg/dL triglyceride, target level 200 mg/dL HDL cholesterol, serum, target level 35 mg/dL LDL target level 100 mg/dL Encounters Code Encounter Date Provider Facility CPT-65342 Level 4 Est. Patient 14:27:39 SENIOR MANAGER QUALITY ASSURANCE Tu Landeros MD [facility] CPT-25018 Level 4 Est. Patient 09:45:25 CDT Tu Landeros MD [facility] CPT-40993 Level 4 Est. Patient 09:05:20 SENIOR MANAGER QUALITY ASSURANCE Tu Landeros MD [facility] CPT-86994 Level 4 Est. Patient 14:09:06 CDT Tu Landeros MD [facility] CPT-42101 Level 3 Est. Patient 13:36:54 CDT Tu Landeros MD [facility] CPT-75825 Level 3 Est. Patient 08:59:14 CDT Tu Landeros MD [facility] CPT-41979 Level 3 Est. Patient 13:48:35 CDT Fab Morales DO [facility] CPT-60028 Level 4 Est. Patient 10:05:48 CDT Tu Landeros MD [facility] CPT-51624 Level 3 Est. Patient 13:38:42 CDT Marek BANKS [facility] CPT-72124 Level 5 Est. Patient 08:08:39 CDT Piyushrichajanelle Dawsontay FRANCIS [facility] CPT-15357 Level 4 Est. Patient 14:23:38 CDT Tu Landeros MD [facility] CPT-94233 Level 3 Est. Patient 11:44:04 CDT Tu Landeros MD [facility] CPT-72939 Level 3 Est. Patient 11:03:20 SENIOR MANAGER QUALITY ASSURANCE Tu Landeros MD [facility] CPT-42693 Level 3 Est. Patient 11:03:14 SENIOR MANAGER QUALITY ASSURANCE Tu Landeros MD [facility] CPT-37508 Level 3 Est. Patient 12:42:49 CDT Tu Landeros MD [facility] CPT-66173 Level 3 Est. Patient 11:52:06 CDT Tu Landeros MD [facility] CPT-89815 Level 3 Est. Patient 13:58:11 CDT Tu Landeros MD [facility] CPT-81130 Level 3 Est. Patient 17:50:07 CDT Fab Morales DO [facility] CPT-37367 Level 3 Est. Patient 12:06:29 CDT Elvira Cervantes MD PhD [facility] CPT-41398 Level 3 Est. Patient 15:50:32 CDT Tu Landeros MD [facility] CPT-73612 Level 4 Est. Patient 16:08:29 CDT Tu Landeros MD [facility] CPT-74276 Level 3 Est. Patient 16:04:19 CDT Tu Landeros MD [facility] CPT-50485 Level 3 Est. Patient 11:22:30 SENIOR MANAGER QUALITY ASSURANCE Tu Lanedros MD [facility] CPT-22250 Level 4 Est. Patient 16:24:02 SENIOR MANAGER QUALITY ASSURANCE Tu Landeros MD [facility] CPT-23750 Level 3 Est. Patient 17:21:23 SENIOR MANAGER QUALITY ASSURANCE Tu Landeros MD [facility] Procedures Code Procedure Name Date Entry Date Standard Description CPT-OV Office Visit 15:45:11 CDT CPT-000 Give Zostavax 14:09:06 CDT CPT-32711 Administration single or combination vaccine inc oral 15 :19:04 CDT CPT-86008 Zoster Vaccine (Zostavax) 15:19:04 CDT CPT-00285 Administration single or combination vaccine inc oral 20 :51:03 CDT CPT-16562 Influenza split virus > age 3 20:51:03 CDT CPT-93653 No Charge Offi Visit 14:52:03 CDT CPT-OV Office Visit 14:57:43 CDT CPT-OV Office Visit 15:22:32 CDT CPT-13081 Administration single or combination vaccine inc oral 11 :33:15 CDT CPT-39680 Influenza split virus > age 3 11:33:15 CDT
--- OUTSIDE RECORDS SUMMARY | 2018-04-25 19:26 | XMS REPORT | Clinical Summary ---
Author Author Admin, SACHI Clemons [facility] Address Unknown Phone Unavailable Allergies, Adverse [...] sugar twice daily dx: 250.00 LANCET DEVICES 31102885634 Active Tu Landeros MD Active TRUEDRAW LANCING DEVICE MISC Test twice a day dx 250.0 LANCET DEVICES 36179893524 Active Tu Landeros MD Active TRUERESULT BLOOD GLUCOSE W/DEVICE KIT test blood sugar twice daily dx 250.00 BLOOD GLUCOSE MONITORING SUPPL 61881093385 Active Tu Landeros MD Active TRUETEST TEST INVITR STRP test blood sugar twice daily. DX 250.0 GLUCOSE BLOOD 32162864871 Active Tu Landeros MD Active EMBRACE BLOOD GLUCOSE TEST STRP test blood sugar twice daily DX 250.0 2014 GLUCOSE BLOOD 84768920280 No Longer Active Tu Landeros MD Active TRUETEST TEST STRP test blood sugar three times daily dx: 250.00 GLUCOSE BLOOD 57526105619 No Longer Active Suzebianca VOGEL Active TRUERESULT BLOOD GLUCOSE W/DEVICE KIT use to test blood sugar tid dx: 250.00 BLOOD GLUCOSE MONITORING SUPPL 20423132943 No Longer Active Suze Corey RMA Active ALIGN 4 MG CAPS 1 tid PROBIOTIC PRODUCT 66942836464 No Longer Active Shaun Sy MD Active CIPRO 500 MG TABS 1 bid x 14 days start 5-01-04 CIPROFLOXACIN HCL 41966416650 No Longer Active Shaun Sy MD Active TRAMADOL HCL 50 MG TABS 1-2 tablets every 6 hours as needed for pain TRAMADOL HCL 56267260562 Active Tu Landeros MD Active HYDROCODONE-ACETAMINOPHEN 5-325 MG TABS 1 tab by mouth every 6 hours as needed for pain HYDROCODONE-ACETAMINOPHEN 84202090646 No Longer Active Tu Landeros MD Active OMEPRAZOLE 20 MG CPDR 1 po q a.m. OMEPRAZOLE 07981127147 Active Tu Landeros MD Active GABAPENTIN 100 MG CAPS 1 po bid GABAPENTIN 11054787379 No Longer Active Tu Landeros MD Active B-12 100 MCG TABS Take one by mouth daily CYANOCOBALAMIN 83739875390 No Longer Active Tu Landeros MD Active GABAPENTIN 100 MG CAPS by mouth twice a day GABAPENTIN 67491816808 Active Tu Landeros MD Active BACTRIM DS 800-160 MG TABS 1 bid x 14 day start 09-28-13 SULFAMETHOXAZOLE-TRIMETHOPRIM 22714318687 No Longer Active Tu Landeros MD Active SIMVASTATIN 40 MG TABS 1 tab daily at bedtime SIMVASTATIN 92459207941 Active Tu Landeros MD Active CARVEDILOL 12.5 MG TABS 1 po BID CARVEDILOL 51040123217 Active Tu Landeros MD Active SUPER B COMPLEX/VITAMIN C TABS 1 qd B COMPLEX-C 28591449838 Active JASPREET Perez Active TRILIPIX 135 MG CPDR 1 q hs CHOLINE FENOFIBRATE 63343944335 Active Tu Landeros MD Active FENOFIBRATE 145 MG TABS 1 po qd FENOFIBRATE 21147354295 No Longer Active JASPREET Perez Active OMEPRAZOLE 20 MG TBEC 1 PO 30 MIN BEFORE 1ST MEAL OMEPRAZOLE 11826181181 No Longer Active JASPREET Perez Active SIMVASTATIN 40 MG TABS Take one by mouth daily SIMVASTATIN 59534048777 No Longer Active JASPREET Perez Active VENLAFAXINE HCL 37.5 MG TABS 1 bid VENLAFAXINE HCL 59317174443 Active Tu Landeros MD Active VENLAFAXINE HCL 75 MG TABS 1 po BID VENLAFAXINE HCL 17584170635 No Longer Active JASPREET Perez Active METFORMIN HCL 500 MG TB24 1.5 po BID METFORMIN HCL 42221280217 Active Tu Landeros MD Active CIPRO 500 MG TAB 1 tablet by mouth twice daily CIPROFLOXACIN HCL 11072124095 No Longer Active Tu Landeros MD Active VENLAFAXINE HCL 37.5 MG TABS 1 po BID VENLAFAXINE HCL 96210335371 No Longer Active Suzebianca Nicole RMA Active [employer]S STOOL SOFTENER 100 MG CAPS 1 tab daily DOCUSATE SODIUM 01324420244 Active Tu Landeros MD Active LAMISIL 250 MG TAB 1 po qd TERBINAFINE HCL 23925701920 No Longer Active Tu Landeros MD Active LORTAB 5 5-500 MG TABS 1/2 to 1 tablet by mouth every 4 hours as needed for pain HYDROCODONE-ACETAMINOPHEN 09143601506 No Longer Active Tu Landeros MD Active ENALAPRIL MALEATE 20 MG TABS 1.5 po qd ENALAPRIL MALEATE 54520097133 Active Tu Landeros MD Active HYDROCODONE-ACETAMINOPHEN 5-500 MG TABS take one po Q 4-6 hours prn HYDROCODONE-ACETAMINOPHEN 68292421330 No Longer Active Tu Landeros MD Active BACTRIM DS 800-160 MG TABS 1 po BID x 7 days SULFAMETHOXAZOLE-TRIMETHOPRIM 51505996939 No Longer Active Tu Landeros MD Active VENLAFAXINE HCL 75 MG TABS 1 po BID VENLAFAXINE HCL 73108074148 No Longer Active Elvira Cervantes MD PhD Active TRAMADOL HCL 50 MG TABS 1 tablets every 6 hours as needed for pain TRAMADOL HCL 52023690121 No Longer Active Tu Lanedros MD Active ACCU-CHEK FASTCLIX LANCETS MISC Use to check bloodsugar three times daily as needed LANCETS 25717344411 No Longer Active Tu Landeros MD Active ACCU-CHEK KEYONA PLUS STRP Use for testing bloodsugars three times daily as needed GLUCOSE BLOOD 99076249985 No Longer Active Tu Landeros MD Active ACCU-CHEK KEYONA PLUS W/DEVICE KIT Use for testing bloodsugars three times daily as needed BLOOD GLUCOSE MONITORING SUPPL 28086215148 No Longer Active Tu Landeros MD Active SPIRONOLACTONE 25 MG TAB 0.5 tablet by mouth daily SPIRONOLACTONE 83206392280 No Longer Active Tu Landeros MD Active ALPRAZOLAM 0.5 MG TABS 1 tab every 6hrs as needed ALPRAZOLAM 46012067210 No Longer Active Tu Landeros MD Active AUGMENTIN 875-125 MG TAB 1 tab by mouth twice daily with food AMOXICILLIN-POT CLAVULANATE 69631904833 No Longer Active Tu Landeros MD Active PREDNISONE 20 MG TAB 2 tabs daily for 3 days, 1 tab daily for 3 days, 1/2 tab daily for 2 days PREDNISONE 73365005686 No Longer Active Tu Landeros MD Active XANAX 0.5 MG TABS 1 tablet every 6 hrs prn ALPRAZOLAM 18845448717 No Longer Active Tu Landeros MD Active PREDNISONE 20 MG TAB 2 tabs daily for 3 days, 1 tab daily for 3 days, 1/2 tab daily for 2 days PREDNISONE 14479057746 No Longer Active Tu Landeros MD Active TRIAMCINOLONE ACETONIDE 0.1 % OINT Apply to affected areas TID for up to 2 weeks TRIAMCINOLONE ACETONIDE 20567733411 No Longer Active Tu Landeros MD Active LORTAB 5 5-500 MG TABS 1/2 to 1 tablet by mouth every 4 hours as needed for pain HYDROCODONE-ACETAMINOPHEN 09309356086 No Longer Active Tu Landeors MD Active MULTIVITAMINS TABS Take one by mouth daily MULTIPLE VITAMIN 00974527411 No Longer Active Tu Landeros MD Active MELATONIN 5 MG TABS Take one by mouth daily MELATONIN 26437905006 No Longer Active Tu Landeros MD Active SOMA 350 MG TAB 1 po q 6 hours prn spasm CARISOPRODOL 81937489336 No Longer Active Tu Landeros MD Active MECLIZINE HCL 25 MG CHEW TAB 1 four times a day as needed for dizziness 08/05 MECLIZINE HCL 93955140495 No Longer Active Fab Morales DO Active ANGEL BREEZE 2 TEST DISK test tid prn GLUCOSE BLOOD 56963572351 No Longer Active Negra Scott RN Active DICLOFENAC SODIUM 50 MG TBEC 1 tablet by mouth three times a day as needed DICLOFENAC SODIUM 81601686054 Active Tu Landeros MD Active REGLAN 10 MG TAB 1 po TID PRN [place] METOCLOPRAMIDE HCL 33307115201 No Longer Active Tu Landeros MD Active METFORMIN HCL 500 MG TABS 1 PO BID METFORMIN HCL 00299448732 No Longer Active Tu Landeros MD Active AMBIEN 10 MG TAB 1 tab by mouth at bedtime as needed for sleep ZOLPIDEM TARTRATE 76290471717 No Longer Active Tu Landeros MD Active FLUOXETINE HCL 40 MG CAPS 1 po q day FLUOXETINE HCL 51370074745 No Longer Active Mayra Hampstead Active FISH OIL 1000 MG CAPS Take one by mouth daily OMEGA-3 FATTY ACIDS 60180943087 Active Tu Landeros MD Active GLUCOSAMINE 500 MG TABS Take 2 tab po qd GLUCOSAMINE 28142751727 Active Tu Landeros MD Active TRILIPIX 135 MG CPDR 1 po qd CHOLINE FENOFIBRATE 64323200557 No Longer Active Tu Landeros MD Active ASPIRIN 81 MG CHEW TAB 1 tablet by mouth daily ASPIRIN 90209027093 Active Tu Landeros MD Active FUROSEMIDE 40 MG TAB 1 tablet by mouth daily FUROSEMIDE 14620060002 Active Tu Landeros MD Active REQUIP 2 MG TABS Take one tablet at bedtime prn ROPINIROLE HCL 60453489731 Active Tu Landeros MD Active KLOR-CON 10 10 MEQ CR-TABS TAKE 2 TABS DAILY POTASSIUM CHLORIDE 94846157951 Active Tu Landeros MD Active AMBIEN 10 MG TAB 1 tab by mouth at bedtime as needed for sleep AMBIEN 10 MG TAB 165247 ZOLPIDEM TARTRATE Inactive METFORMIN HCL 500 MG TABS 1 PO BID METFORMIN HCL 500 MG TABS 564346 METFORMIN HCL Inactive REGLAN 10 MG TAB 1 po TID PRN Nausea REGLAN 10 MG TAB 238664 METOCLOPRAMIDE HCL Inactive MECLIZINE HCL 25 MG CHEW TAB 1 four times a day as needed for dizziness 08/05 MECLIZINE HCL 25 MG CHEW TAB 802559 MECLIZINE HCL Inactive SOMA 350 MG TAB 1 po q 6 hours prn spasm SOMA 350 MG TAB 830919 CARISOPRODOL Inactive MELATONIN 5 MG TABS Take one by mouth daily MELATONIN 5 MG TABS 572282 MELATONIN Inactive MULTIVITAMINS TABS Take one by mouth daily MULTIVITAMINS TABS MULTIPLE VITAMIN Inactive LORTAB 5 5-500 MG TABS 1/2 to 1 tablet by mouth every 4 hours as needed for pain LORTAB 5 5-500 MG TABS HYDROCODONE- ACETAMINOPHEN Inactive XANAX 0.5 MG TABS 1 tablet every 6 hrs prn XANAX 0.5 MG TABS 852200 ALPRAZOLAM Inactive AUGMENTIN 875-125 MG TAB 1 tab by mouth twice daily with food AUGMENTIN 875-125 MG TAB 881264 AMOXICILLIN-POT CLAVULANATE Inactive ALPRAZOLAM 0.5 MG TABS 1 tab every 6hrs as needed ALPRAZOLAM 0.5 MG TABS 040811 ALPRAZOLAM Inactive SPIRONOLACTONE 25 MG TAB 0.5 tablet by mouth daily SPIRONOLACTONE 25 MG TAB 183958 SPIRONOLACTONE Inactive ACCU-CHEK KEYONA PLUS W/DEVICE KIT Use for testing bloodsugars three times daily as needed ACCU-CHEK KEOYNA PLUS W/DEVICE KIT BLOOD GLUCOSE MONITORING SUPPL Inactive ACCU-CHEK KEYONA PLUS STRP Use for testing bloodsugars three times daily as needed ACCU-CHEK KEYONA PLUS STRP GLUCOSE BLOOD Inactive ACCU-CHEK FASTCLIX LANCETS MISC Use to check bloodsugar three times daily as needed ACCU-CHEK FASTCLIX LANCETS MISC 38977627730 LANCETS Inactive TRAMADOL HCL 50 MG TABS 1 tablets every 6 hours as needed for pain TRAMADOL HCL 50 MG TABS 591412 TRAMADOL HCL Inactive VENLAFAXINE HCL 75 MG TABS 1 po BID VENLAFAXINE HCL 75 MG TABS 592746 VENLAFAXINE HCL Inactive HYDROCODONE-ACETAMINOPHEN 5-500 MG TABS take one po Q 4-6 hours prn HYDROCODONE-ACETAMINOPHEN 5-500 MG TABS HYDROCODONE- ACETAMINOPHEN Inactive LORTAB 5 5-500 MG TABS 1/2 to 1 tablet by mouth every 4 hours as needed for pain LORTAB 5 5-500 MG TABS HYDROCODONE- ACETAMINOPHEN Inactive LAMISIL 250 MG TAB 1 po qd LAMISIL 250 MG TAB 607524 TERBINAFINE HCL Inactive VENLAFAXINE HCL 37.5 MG TABS 1 po BID VENLAFAXINE HCL 37.5 MG TABS 732486 VENLAFAXINE HCL Inactive CIPRO 500 MG TAB 1 tablet by mouth twice daily CIPRO 500 MG TAB 970619 CIPROFLOXACIN HCL Inactive VENLAFAXINE HCL 75 MG TABS 1 po BID VENLAFAXINE HCL 75 MG TABS 157243 VENLAFAXINE HCL Inactive SIMVASTATIN 40 MG TABS Take one by mouth daily SIMVASTATIN 40 MG TABS 194010 SIMVASTATIN Inactive OMEPRAZOLE 20 MG TBEC 1 PO 30 MIN BEFORE 1ST MEAL OMEPRAZOLE 20 MG TBEC 350392 OMEPRAZOLE Inactive FENOFIBRATE 145 MG TABS 1 po qd FENOFIBRATE 145 MG TABS 825953 FENOFIBRATE Inactive BACTRIM DS 800-160 MG TABS 1 bid x 14 day start 09-28-13 BACTRIM DS 800-160 MG TABS SULFAMETHOXAZOLE-TRIMETHOPRIM Inactive B-12 100 MCG TABS Take one by mouth daily B-12 100 MCG TABS CYANOCOBALAMIN Inactive GABAPENTIN 100 MG CAPS 1 po bid GABAPENTIN 100 MG CAPS 398846 GABAPENTIN Inactive HYDROCODONE-ACETAMINOPHEN 5-325 MG TABS 1 tab by mouth every 6 hours as needed for pain HYDROCODONE-ACETAMINOPHEN 5-325 MG TABS 766368 HYDROCODONE-ACETAMINOPHEN Inactive CIPRO 500 MG TABS 1 bid x 14 days start 09-28-13 CIPRO 500 MG TABS 757178 CIPROFLOXACIN HCL Inactive ALIGN 4 MG CAPS [...] 2 weeks TRIAMCINOLONE ACETONIDE 0.1 % OINT 1268796 TRIAMCINOLONE ACETONIDE Inactive PREDNISONE 20 MG TAB 2 tabs daily for 3 days, 1 tab daily for 3 days, 1/2 tab daily for 2 days PREDNISONE 20 MG TAB 936280 PREDNISONE Inactive PREDNISONE 20 MG TAB 2 tabs daily for 3 days, 1 tab daily for 3 days, 1/2 tab daily for 2 days PREDNISONE 20 MG TAB 598905 PREDNISONE Inactive BACTRIM DS 800-160 MG TABS 1 po BID x 7 days BACTRIM DS 800-160 MG TABS SULFAMETHOXAZOLE-TRIMETHOPRIM Inactive Immunizations Vaccine Administration Date Value Standard Description Seasonal influenza vaccine, injectable, containing preservative, for > 3 years old (Afluria, FluLaval, Fluzone, Fluvirin, Fluarix, Agriflu(>=18 yo)) Fluzone (>3 yrs.) [[id number]] Influenza, seasonal, injectable influenza immunization (Flu Vax) has been administered 02/22/2012 influenza virus vaccine, unspecified formulation Seasonal influenza vaccine, injectable, containing preservative, for > 3 years old (Afluria, FluLaval, Fluzone, Fluvirin, Fluarix, Agriflu(>=18 yo)) Fluzone (>3 yrs.) [[id number]] Influenza, seasonal, injectable Vital Signs Date Name Value Unit Range Description blood pressure, diastolic - 8462-4 76 mm[Hg] [...] CBC - Chemistry sodium, serum 143 mmol/L 647-842 2998/03/10 potassium, serum 4.9 mmol/L 3.5-5.2 chloride, serum [...] HGBA1C - Chemistry sodium, serum 144 mmol/L 934-765 4745/04/16 potassium, serum 4.2 mmol/L 3.5-5.2 chloride, serum [...] 0.20 mg/dL 0.00-1.00 cholesterol, serum 133 mg/dL 463-722 8873/04/16 triglyceride, serum, fasting 142 mg/dL 30-200 HDL [...] mg/dL Encounters Code Encounter Date Provider Facility CPT-12302 Level 4 Est. Patient 14:38:57 CDT Tu Landeros MD [facility] CPT-54095 Level 4 Est. 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 CPT-58290 Level 4 Est. Patient 09:45:25 CDT Tu Landeros MD [facility] CPT-85149 Level 4 Est. Patient 09:05:20 DRIER AND EVAPORATOR OPERATOR Tu Landeros MD [facility] CPT-35531 Level 4 Est. Patient 14:09:06 CDT Tu Landeros MD [facility] CPT-35431 Level 3 Est. Patient 13:36:54 CDT Tu Landeros MD [facility] CPT-85383 Level 3 Est. Patient 08:59:14 CDT Tu Landeros MD [facility] CPT-76259 Level 3 Est. Patient 13:48:35 CDT Fab Morales DO [facility] CPT-75969 Level 4 Est. Patient 10:05:48 CDT Tu Landeros MD [facility] CPT-70070 Level 3 Est. Patient 13:38:42 CDT Marek BANKS [facility] CPT-64165 Level 5 Est. Patient 08:08:39 CDT Jerrica FRANCIS [facility] CPT-22432 Level 4 Est. Patient 14:23:38 CDT Tu Landeros MD [facility] CPT-91869 Level 3 Est. Patient 11:44:04 CDT Tu Landeros MD [facility] CPT-25733 Level 3 Est. Patient 11:03:20 DRIER AND EVAPORATOR OPERATOR Tu Landeros MD [facility] CPT-47611 Level 3 Est. Patient 11:03:14 DRIER AND EVAPORATOR OPERATOR Tu Landeros MD [facility] CPT-19302 Level 3 Est. Patient 12:42:49 CDT Tu Landeros MD [facility] CPT-77105 Level 3 Est. Patient 11:52:06 CDT Tu Landeros MD [facility] CPT-49045 Level 3 Est. Patient 13:58:11 CDT Tu Landeros MD [facility] CPT-18996 Level 3 Est. Patient 17:50:07 CDT Fab Morales DO [facility] CPT-86849 Level 3 Est. Patient 12:06:29 CDT Elvira Cervantes MD PhD [facility] CPT-79031 Level 3 Est. Patient 15:50:32 CDT Tu Landeros MD [facility] CPT-86038 Level 4 Est. Patient 16:08:29 CDT Tu Landeros MD [facility] CPT-44715 Level 3 Est. Patient 16:04:19 CDT Tu Landeros MD [facility] CPT-03219 Level 3 Est. Patient 11:22:30 DRIER AND EVAPORATOR OPERATOR Tu Landeros MD [facility] CPT-61081 Level 4 Est. Patient 16:24:02 DRIER AND EVAPORATOR OPERATOR Tu Landeros MD [facility] CPT-18112 Level 3 Est. Patient 17:21:23 DRIER AND EVAPORATOR OPERATOR Tu Landeros MD [facility] Procedures Code Procedure Name Date Entry Date Standard Description CPT-JTINJ Asp/Joint Injection 15:51:27 DRIER AND EVAPORATOR OPERATOR CPT-OV Office Visit 15:52:02 DRIER AND EVAPORATOR OPERATOR CPT-OV Office Visit 15:45:11 CDT CPT-000 Give Zostavax 14:09:06 CDT CPT-44561 Administration single or combination vaccine inc oral 15 :19:04 CDT CPT-62567 Zoster Vaccine (Zostavax) 15:19:04 CDT CPT-51378 Administration single or combination vaccine inc oral 20 :51:03 CDT CPT-07421 Influenza split virus > age 3 20:51:03 CDT CPT-43787 No Charge Offi Visit 14:52:03 CDT CPT-OV Office Visit 14:57:43 CDT CPT-OV Office Visit 15:22:32 CDT CPT-14922 Administration single or combination vaccine inc oral 11 :33:15 CDT CPT-98663 Influenza split virus > age 3 11:33:15 CDT
--- OUTSIDE RECORDS SUMMARY | 2018-04-25 19:27 | XMS REPORT | Clinical Summary ---
Author Author Admin, SACHI Clemons [facility] Address Unknown Phone Unavailable Allergies, Adverse Reactions, Alerts Allergy Name Reaction Description Start Date Severity Status Provider DANIELLE migraine h/a Critical Active Luisa HU migraine h/a Moderate No Longer Active Tu Landeros MD TRICOR rash, trouble breathing Critical Active Tu Landeors MD SULINDAC Critical Active Tu Landeros MD [...] sugar twice daily dx: 250.00 LANCET DEVICES 10293691228 Active Tu Landeros MD Active TRUEDRAW LANCING DEVICE MISC Test twice a day dx 250.0 LANCET DEVICES 70317174431 Active Tu Landeros MD Active TRUERESULT BLOOD GLUCOSE W/DEVICE KIT test blood sugar twice daily dx 250.00 BLOOD GLUCOSE MONITORING SUPPL 07699931766 Active Tu Landeros MD Active TRUETEST TEST INVITR STRP test blood sugar twice daily. DX 250.0 GLUCOSE BLOOD 74923052339 Active Tu Landeros MD Active EMBRACE BLOOD GLUCOSE TEST STRP test blood sugar twice daily DX 250.0 2014 GLUCOSE BLOOD 02241373453 No Longer Active Tu Landeros MD Active TRUETEST TEST STRP test blood sugar three times daily dx: 250.00 GLUCOSE BLOOD 83086630595 No Longer Active Suzebianca VOGEL Active TRUERESULT BLOOD GLUCOSE W/DEVICE KIT use to test blood sugar tid dx: 250.00 BLOOD GLUCOSE MONITORING SUPPL 25513294007 No Longer Active Suze Corey RMA Active ALIGN 4 MG CAPS 1 tid PROBIOTIC PRODUCT 91761239087 No Longer Active Shaun Sy MD Active CIPRO 500 MG TABS 1 bid x 14 days start 5-01-04 CIPROFLOXACIN HCL 46847550949 No Longer Active Shaun Sy MD Active TRAMADOL HCL 50 MG TABS 1-2 tablets every 6 hours as needed for pain TRAMADOL HCL 83706398522 Active Tu Landeros MD Active HYDROCODONE-ACETAMINOPHEN 5-325 MG TABS 1 tab by mouth every 6 hours as needed for pain HYDROCODONE-ACETAMINOPHEN 00620788368 No Longer Active Tu Landeros MD Active OMEPRAZOLE 20 MG CPDR 1 po q a.m. OMEPRAZOLE 30885653781 Active Tu Landeros MD Active GABAPENTIN 100 MG CAPS 1 po bid GABAPENTIN 05465697861 No Longer Active Tu Landeros MD Active B-12 100 MCG TABS Take one by mouth daily CYANOCOBALAMIN 04919851012 No Longer Active Tu Landeros MD Active GABAPENTIN 100 MG CAPS by mouth twice a day GABAPENTIN 05715078268 Active Tu Landeros MD Active BACTRIM DS 800-160 MG TABS 1 bid x 14 day start 09-28-13 SULFAMETHOXAZOLE-TRIMETHOPRIM 95394311233 No Longer Active Tu Landeros MD Active SIMVASTATIN 40 MG TABS 1 tab daily at bedtime SIMVASTATIN 30813052053 Active Tu Landeros MD Active CARVEDILOL 12.5 MG TABS 1 po BID CARVEDILOL 23756209940 Active Tu Landeros MD Active SUPER B COMPLEX/VITAMIN C TABS 1 qd B COMPLEX-C 41162251661 Active JASPREET Perez Active TRILIPIX 135 MG CPDR 1 q hs CHOLINE FENOFIBRATE 33257970425 Active Tu Landeros MD Active FENOFIBRATE 145 MG TABS 1 po qd FENOFIBRATE 44104673805 No Longer Active JASPREET Perez Active OMEPRAZOLE 20 MG TBEC 1 PO 30 MIN BEFORE 1ST MEAL OMEPRAZOLE 02852479523 No Longer Active JASPREET Perez Active SIMVASTATIN 40 MG TABS Take one by mouth daily SIMVASTATIN 82093859059 No Longer Active JASPREET Perez Active VENLAFAXINE HCL 37.5 MG TABS 1 bid VENLAFAXINE HCL 91767467082 Active Tu Landeros MD Active VENLAFAXINE HCL 75 MG TABS 1 po BID VENLAFAXINE HCL 31337912104 No Longer Active JASPREET Perez Active METFORMIN HCL 500 MG TB24 1.5 po BID METFORMIN HCL 05869102798 Active Tu Landeros MD Active CIPRO 500 MG TAB 1 tablet by mouth twice daily CIPROFLOXACIN HCL 05323192919 No Longer Active Tu Landeros MD Active VENLAFAXINE HCL 37.5 MG TABS 1 po BID VENLAFAXINE HCL 44269123381 No Longer Active Suzebianca Nicole RMA Active CVS STOOL SOFTENER 100 MG CAPS 1 tab daily DOCUSATE SODIUM 88789332461 Active Tu Landeros MD Active LAMISIL 250 MG TAB 1 po qd TERBINAFINE HCL 19333908048 No Longer Active Tu Landeros MD Active LORTAB 5 5-500 MG TABS 1/2 to 1 tablet by mouth every 4 hours as needed for pain HYDROCODONE-ACETAMINOPHEN 05217528768 No Longer Active Tu Landeros MD Active ENALAPRIL MALEATE 20 MG TABS 1.5 po qd ENALAPRIL MALEATE 62746829986 Active Tu Landeros MD Active HYDROCODONE-ACETAMINOPHEN 5-500 MG TABS take one po Q 4-6 hours prn HYDROCODONE-ACETAMINOPHEN 23444382672 No Longer Active Tu Landeros MD Active BACTRIM DS 800-160 MG TABS 1 po BID x 7 days SULFAMETHOXAZOLE-TRIMETHOPRIM 75092493826 No Longer Active Tu Landeros MD Active VENLAFAXINE HCL 75 MG TABS 1 po BID VENLAFAXINE HCL 15394816785 No Longer Active Elvira Cervantes MD PhD Active TRAMADOL HCL 50 MG TABS 1 tablets every 6 hours as needed for pain TRAMADOL HCL 68484589287 No Longer Active Tu Landeros MD Active ACCU-CHEK FASTCLIX LANCETS MISC Use to check bloodsugar three times daily as needed LANCETS 48210155862 No Longer Active Tu Landeros MD Active ACCU-CHEK KEYONA PLUS STRP Use for testing bloodsugars three times daily as needed GLUCOSE BLOOD 64099676795 No Longer Active Tu Landeros MD Active ACCU-CHEK KEYONA PLUS W/DEVICE KIT Use for testing bloodsugars three times daily as needed BLOOD GLUCOSE MONITORING SUPPL 75999326107 No Longer Active Tu Landeros MD Active SPIRONOLACTONE 25 MG TAB 0.5 tablet by mouth daily SPIRONOLACTONE 49634853037 No Longer Active Tu Landeros MD Active ALPRAZOLAM 0.5 MG TABS 1 tab every 6hrs as needed ALPRAZOLAM 09918035491 No Longer Active Tu Landeros MD Active AUGMENTIN 875-125 MG TAB 1 tab by mouth twice daily with food AMOXICILLIN-POT CLAVULANATE 85509486668 No Longer Active Tu Landeros MD Active PREDNISONE 20 MG TAB 2 tabs daily for 3 days, 1 tab daily for 3 days, 1/2 tab daily for 2 days PREDNISONE 22500117316 No Longer Active Tu Landeros MD Active XANAX 0.5 MG TABS 1 tablet every 6 hrs prn ALPRAZOLAM 37507550464 No Longer Active Tu Landeros MD Active PREDNISONE 20 MG TAB 2 tabs daily for 3 days, 1 tab daily for 3 days, 1/2 tab daily for 2 days PREDNISONE 10071334169 No Longer Active Tu Landeros MD Active TRIAMCINOLONE ACETONIDE 0.1 % OINT Apply to affected areas TID for up to 2 weeks TRIAMCINOLONE ACETONIDE 61014750655 No Longer Active Tu Landeros MD Active LORTAB 5 5-500 MG TABS 1/2 to 1 tablet by mouth every 4 hours as needed for pain HYDROCODONE-ACETAMINOPHEN 90215703842 No Longer Active Tu Landeros MD Active MULTIVITAMINS TABS Take one by mouth daily MULTIPLE VITAMIN 22254326795 No Longer Active Tu Landeros MD Active MELATONIN 5 MG TABS Take one by mouth daily MELATONIN 75874806475 No Longer Active Tu Landeros MD Active SOMA 350 MG TAB 1 po q 6 hours prn spasm CARISOPRODOL 90462570894 No Longer Active Tu Landeros MD Active MECLIZINE HCL 25 MG CHEW TAB 1 four times a day as needed for dizziness 08/05 MECLIZINE HCL 28835019219 No Longer Active Fab Morales DO Active ANGEL BREEZE 2 TEST DISK test tid prn GLUCOSE BLOOD 90883448705 No Longer Active Negra Scott RN Active DICLOFENAC SODIUM 50 MG TBEC 1 tablet by mouth three times a day as needed DICLOFENAC SODIUM 35333289003 Active Tu Landeros MD Active REGLAN 10 MG TAB 1 po TID PRN [place] METOCLOPRAMIDE HCL 92713607235 No Longer Active Tu Landeros MD Active METFORMIN HCL 500 MG TABS 1 PO BID METFORMIN HCL 17855707393 No Longer Active Tu Landeros MD Active AMBIEN 10 MG TAB 1 tab by mouth at bedtime as needed for sleep ZOLPIDEM TARTRATE 14633009650 No Longer Active Tu Landeros MD Active FLUOXETINE HCL 40 MG CAPS 1 po q day FLUOXETINE HCL 98498211991 No Longer Active Mayra [place] Active FISH OIL 1000 MG CAPS Take one by mouth daily OMEGA-3 FATTY ACIDS 12267116276 Active Tu Landeros MD Active GLUCOSAMINE 500 MG TABS Take 2 tab po qd GLUCOSAMINE 73104374487 Active Tu Landeros MD Active TRILIPIX 135 MG CPDR 1 po qd CHOLINE FENOFIBRATE 76585491022 No Longer Active Tu Landeros MD Active ASPIRIN 81 MG CHEW TAB 1 tablet by mouth daily ASPIRIN 69752358353 Active Tu Landeros MD Active FUROSEMIDE 40 MG TAB 1 tablet by mouth daily FUROSEMIDE 81315803263 Active Tu Landeros MD Active REQUIP 2 MG TABS Take one tablet at bedtime prn ROPINIROLE HCL 74571830893 Active Tu Landeros MD Active KLOR-CON 10 10 MEQ CR-TABS TAKE 2 TABS DAILY POTASSIUM CHLORIDE 04434520477 Active Tu Landeros MD Active AMBIEN 10 MG TAB 1 tab by mouth at bedtime as needed for sleep AMBIEN 10 MG TAB 454585 ZOLPIDEM TARTRATE Inactive METFORMIN HCL 500 MG TABS 1 PO BID METFORMIN HCL 500 MG TABS 436587 METFORMIN HCL Inactive REGLAN 10 MG TAB 1 po TID PRN [place] REGLAN 10 MG TAB 746403 METOCLOPRAMIDE HCL Inactive MECLIZINE HCL 25 MG CHEW TAB 1 four times a day as needed for dizziness 08/05 MECLIZINE HCL 25 MG CHEW TAB 463440 MECLIZINE HCL Inactive SOMA 350 MG TAB 1 po q 6 hours prn spasm SOMA 350 MG TAB 841480 CARISOPRODOL Inactive MELATONIN 5 MG TABS Take one by mouth daily MELATONIN 5 MG TABS 678873 MELATONIN Inactive MULTIVITAMINS TABS Take one by mouth daily MULTIVITAMINS TABS MULTIPLE VITAMIN Inactive LORTAB 5 5-500 MG TABS 1/2 to 1 tablet by mouth every 4 hours as needed for pain LORTAB 5 5-500 MG TABS HYDROCODONE- ACETAMINOPHEN Inactive XANAX 0.5 MG TABS 1 tablet every 6 hrs prn XANAX 0.5 MG TABS 388142 ALPRAZOLAM Inactive AUGMENTIN 875-125 MG TAB 1 tab by mouth twice daily with food AUGMENTIN 875-125 MG TAB 219715 AMOXICILLIN-POT CLAVULANATE Inactive ALPRAZOLAM 0.5 MG TABS 1 tab every 6hrs as needed ALPRAZOLAM 0.5 MG TABS 503059 ALPRAZOLAM Inactive SPIRONOLACTONE 25 MG TAB 0.5 tablet by mouth daily SPIRONOLACTONE 25 MG TAB 649315 SPIRONOLACTONE Inactive ACCU-CHEK KEYONA PLUS W/DEVICE KIT Use for testing bloodsugars three times daily as needed ACCU-CHEK KEYONA PLUS W/DEVICE KIT BLOOD GLUCOSE MONITORING SUPPL Inactive ACCU-CHEK KEYONA PLUS STRP Use for testing bloodsugars three times daily as needed ACCU-CHEK KEYONA PLUS STRP GLUCOSE BLOOD Inactive ACCU-CHEK FASTCLIX LANCETS MISC Use to check bloodsugar three times daily as needed ACCU-CHEK FASTCLIX LANCETS MISC 09155631829 LANCETS Inactive TRAMADOL HCL 50 MG TABS 1 tablets every 6 hours as needed for pain TRAMADOL HCL 50 MG TABS 050277 TRAMADOL HCL Inactive VENLAFAXINE HCL 75 MG TABS 1 po BID VENLAFAXINE HCL 75 MG TABS 580604 VENLAFAXINE HCL Inactive HYDROCODONE-ACETAMINOPHEN 5-500 MG TABS take one po Q 4-6 hours prn HYDROCODONE-ACETAMINOPHEN 5-500 MG TABS HYDROCODONE- ACETAMINOPHEN Inactive LORTAB 5 5-500 MG TABS 1/2 to 1 tablet by mouth every 4 hours as needed for pain LORTAB 5 5-500 MG TABS HYDROCODONE- ACETAMINOPHEN Inactive LAMISIL 250 MG TAB 1 po qd LAMISIL 250 MG TAB 498013 TERBINAFINE HCL Inactive VENLAFAXINE HCL 37.5 MG TABS 1 po BID VENLAFAXINE HCL 37.5 MG TABS 109287 VENLAFAXINE HCL Inactive CIPRO 500 MG TAB 1 tablet by mouth twice daily CIPRO 500 MG TAB 932447 CIPROFLOXACIN HCL Inactive VENLAFAXINE HCL 75 MG TABS 1 po BID VENLAFAXINE HCL 75 MG TABS 314168 VENLAFAXINE HCL Inactive SIMVASTATIN 40 MG TABS Take one by mouth daily SIMVASTATIN 40 MG TABS 375227 SIMVASTATIN Inactive OMEPRAZOLE 20 MG TBEC 1 PO 30 MIN BEFORE 1ST MEAL OMEPRAZOLE 20 MG TBEC 246623 OMEPRAZOLE Inactive FENOFIBRATE 145 MG TABS 1 po qd FENOFIBRATE 145 MG TABS 677615 FENOFIBRATE Inactive BACTRIM DS 800-160 MG TABS 1 bid x 14 day start 09-28-13 BACTRIM DS 800-160 MG TABS SULFAMETHOXAZOLE-TRIMETHOPRIM Inactive B-12 100 MCG TABS Take one by mouth daily B-12 100 MCG TABS CYANOCOBALAMIN Inactive GABAPENTIN 100 MG CAPS 1 po bid GABAPENTIN 100 MG CAPS 086762 GABAPENTIN Inactive HYDROCODONE-ACETAMINOPHEN 5-325 MG TABS 1 tab by mouth every 6 hours as needed for pain HYDROCODONE-ACETAMINOPHEN 5-325 MG TABS 001305 HYDROCODONE-ACETAMINOPHEN Inactive CIPRO 500 MG TABS 1 bid x 14 days start 09-28-13 CIPRO 500 MG TABS 443107 CIPROFLOXACIN HCL Inactive ALIGN 4 MG CAPS [...] 2 weeks TRIAMCINOLONE ACETONIDE 0.1 % OINT 7782913 TRIAMCINOLONE ACETONIDE Inactive PREDNISONE 20 MG TAB 2 tabs daily for 3 days, 1 tab daily for 3 days, 1/2 tab daily for 2 days PREDNISONE 20 MG TAB 645055 PREDNISONE Inactive PREDNISONE 20 MG TAB 2 tabs daily for 3 days, 1 tab daily for 3 days, 1/2 tab daily for 2 days PREDNISONE 20 MG TAB 908384 PREDNISONE Inactive BACTRIM DS 800-160 MG TABS 1 po BID x 7 days BACTRIM DS 800-160 MG TABS SULFAMETHOXAZOLE-TRIMETHOPRIM Inactive Immunizations Vaccine Administration Date Value Standard Description Seasonal influenza vaccine, injectable, containing preservative, for > 3 years old (Afluria, FluLaval, Fluzone, Fluvirin, Fluarix, Agriflu(>=18 yo)) Fluzone (>3 yrs.) [ECO006] Influenza, seasonal, injectable influenza immunization (Flu Vax) has been administered 02/22/2012 influenza virus vaccine, unspecified formulation Seasonal influenza vaccine, injectable, containing preservative, for > 3 years old (Afluria, FluLaval, Fluzone, Fluvirin, Fluarix, Agriflu(>=18 yo)) Fluzone (>3 yrs.) [HCG165] Influenza, seasonal, injectable Vital Signs Date Name [...] CBC - Chemistry sodium, serum 143 mmol/L 867-299 3697/03/10 potassium, serum 4.9 mmol/L 3.5-5.2 chloride, serum [...] HGBA1C - Chemistry sodium, serum 144 mmol/L 798-892 7143/04/16 potassium, serum 4.2 mmol/L 3.5-5.2 chloride, serum [...] 0.20 mg/dL 0.00-1.00 cholesterol, serum 133 mg/dL 670-162 8992/04/16 triglyceride, serum, fasting 142 mg/dL 30-200 HDL [...] mg/dL Encounters Code Encounter Date Provider Facility CPT-64067 Level 4 Est. Patient 14:38:57 CDT Tu Landeros MD [facility] CPT-18661 Level 4 Est. 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 Patient 09:45:25 CDT Tu Landeros MD [facility] CPT-04415 Level 4 Est. Patient 09:05:20 STRAPPING MACHINE TENDER Tu Landeros MD [facility] CPT-10152 Level 4 Est. Patient 14:09:06 CDT Tu Landeros MD [facility] CPT-47179 Level 3 Est. Patient 13:36:54 CDT Tu Landeros MD [facility] CPT-59940 Level 3 Est. Patient 08:59:14 CDT Tu Landeros MD [facility] CPT-02968 Level 3 Est. Patient 13:48:35 CDT Fab Morales DO [facility] CPT-35080 Level 4 Est. Patient 10:05:48 CDT Tu Landeros MD [facility] CPT-21560 Level 3 Est. Patient 13:38:42 CDT Marek BANKS [facility] CPT-84328 Level 5 Est. Patient 08:08:39 CDT Jerrica FRANCIS [facility] CPT-48513 Level 4 Est. Patient 14:23:38 CDT Tu Landeros MD [facility] CPT-35765 Level 3 Est. Patient 11:44:04 CDT Tu Landeros MD [facility] CPT-09070 Level 3 Est. 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 Patient 11:03:14 STRAPPING MACHINE TENDER Tu Landeros MD [facility] CPT-34511 Level 3 Est. Patient 12:42:49 CDT Tu Landeros MD [facility] CPT-74500 Level 3 Est. Patient 11:52:06 CDT Tu Landeros MD [facility] CPT-65177 Level 3 Est. Patient 13:58:11 CDT Tu Landeros MD [facility] CPT-32688 Level 3 Est. Patient 17:50:07 CDT Fab Morales DO [facility] CPT-69468 Level 3 Est. Patient 12:06:29 CDT Elvira Cervantes MD, PhD [facility] CPT-61820 Level 3 Est. Patient 15:50:32 CDT Tu Landeros MD [facility] CPT-34422 Level 4 Est. Patient 16:08:29 CDT Tu Landeros MD [facility] CPT-92379 Level 3 Est. Patient 16:04:19 CDT Tu Landeros MD [facility] CPT-76901 Level 3 Est. 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 MACHINE TENDER Tu Landeros MD [facility] Procedures Code Procedure Name Date Entry Date Standard Description CPT-JTINJ Asp/Joint Injection 15:51:27 STRAPPING MACHINE TENDER CPT-OV Office Visit 15:52:02 STRAPPING MACHINE TENDER CPT-OV Office Visit 15:45:11 CDT CPT-000 Give Zostavax 14:09:06 CDT CPT-63402 Administration single or combination vaccine inc oral 15 :19:04 CDT CPT-04833 Zoster Vaccine (Zostavax) 15:19:04 CDT CPT-75704 Administration single or combination vaccine inc oral 20 :51:03 CDT CPT-14656 Influenza split virus > age 3 20:51:03 CDT CPT-72853 No Charge Offi Visit 14:52:03 CDT CPT-OV Office Visit 14:57:43 CDT CPT-OV Office Visit 15:22:32 CDT CPT-77973 Administration single or combination vaccine inc oral 11 :33:15 CDT CPT-61030 Influenza split virus > age 3 11:33:15 CDT
--- OUTSIDE RECORDS SUMMARY | 2018-04-25 19:28 | XMS REPORT | Clinical Summary ---
[...] sugar twice daily dx: 250.00 LANCET DEVICES 16545352592 Active Tu Landeros MD Active TRUEDRAW LANCING DEVICE MISC Test twice a day dx 250.0 LANCET DEVICES 71507898988 Active Tu Landeros MD Active TRUERESULT BLOOD GLUCOSE W/DEVICE KIT test blood sugar twice daily dx 250.00 BLOOD GLUCOSE MONITORING SUPPL 76398899698 Active Tu Landeros MD Active TRUETEST TEST INVITR STRP test blood sugar twice daily. DX 250.0 GLUCOSE BLOOD 88011309552 Active Tu Landeros MD Active EMBRACE BLOOD GLUCOSE TEST STRP test blood sugar twice daily DX 250.0 2014 GLUCOSE BLOOD 19366944372 No Longer Active Tu Landeros MD Active TRUETEST TEST STRP test blood sugar three times daily dx: 250.00 GLUCOSE BLOOD 22830068554 No Longer Active Suzebianca VOGEL Active TRUERESULT BLOOD GLUCOSE W/DEVICE KIT use to test blood sugar tid dx: 250.00 BLOOD GLUCOSE MONITORING SUPPL 63155243823 No Longer Active Suze Corey RMA Active ALIGN 4 MG CAPS 1 tid PROBIOTIC PRODUCT 69437854667 No Longer Active Shaun Sy MD Active CIPRO 500 MG TABS 1 bid x 14 days start 5-01-04 CIPROFLOXACIN HCL 49548896161 No Longer Active Shaun Sy MD Active TRAMADOL HCL 50 MG TABS 1-2 tablets every 6 hours as needed for pain TRAMADOL HCL 05022917801 Active Tu Landeros MD Active HYDROCODONE-ACETAMINOPHEN 5-325 MG TABS 1 tab by mouth every 6 hours as needed for pain HYDROCODONE-ACETAMINOPHEN 13405863469 No Longer Active Tu Landeros MD Active OMEPRAZOLE 20 MG CPDR 1 po q a.m. OMEPRAZOLE 46511150774 Active Tu Landeros MD Active GABAPENTIN 100 MG CAPS 1 po bid GABAPENTIN 58923382433 No Longer Active Tu Landeros MD Active B-12 100 MCG TABS Take one by mouth daily CYANOCOBALAMIN 65165068949 No Longer Active Tu Landeros MD Active GABAPENTIN 100 MG CAPS by mouth twice a day GABAPENTIN 58329737695 Active Tu Landeros MD Active BACTRIM DS 800-160 MG TABS 1 bid x 14 day start 09-28-13 SULFAMETHOXAZOLE-TRIMETHOPRIM 54353913056 No Longer Active Tu Landeros MD Active SIMVASTATIN 40 MG TABS 1 tab daily at bedtime SIMVASTATIN 46347548051 Active Tu Landeros MD Active CARVEDILOL 12.5 MG TABS 1 po BID CARVEDILOL 57307911373 Active Tu Landeros MD Active SUPER B COMPLEX/VITAMIN C TABS 1 qd B COMPLEX-C 08440454278 Active JASPREET Perez Active TRILIPIX 135 MG CPDR 1 q hs CHOLINE FENOFIBRATE 29628869130 Active Tu Landeros MD Active FENOFIBRATE 145 MG TABS 1 po qd FENOFIBRATE 84012506350 No Longer Active JASPREET Perez Active OMEPRAZOLE 20 MG TBEC 1 PO 30 MIN BEFORE 1ST MEAL OMEPRAZOLE 40597510829 No Longer Active JASPREET Perez Active SIMVASTATIN 40 MG TABS Take one by mouth daily SIMVASTATIN 88044405539 No Longer Active JASPREET Perez Active VENLAFAXINE HCL 37.5 MG TABS 1 bid VENLAFAXINE HCL 23689144211 Active Tu Landeros MD Active VENLAFAXINE HCL 75 MG TABS 1 po BID VENLAFAXINE HCL 60328041870 No Longer Active JASPREET Perez Active METFORMIN HCL 500 MG TB24 1.5 po BID METFORMIN HCL 80143419277 Active Tu Landeros MD Active CIPRO 500 MG TAB 1 tablet by mouth twice daily CIPROFLOXACIN HCL 58389404887 No Longer Active Tu Landeros MD Active VENLAFAXINE HCL 37.5 MG TABS 1 po BID VENLAFAXINE HCL 41529976113 No Longer Active Suzebianca Nicole RMA Active [employer] STOOL SOFTENER 100 MG CAPS 1 tab daily DOCUSATE SODIUM 49600682672 Active Tu Landeros MD Active LAMISIL 250 MG TAB 1 po qd TERBINAFINE HCL 53422046401 No Longer Active Tu Landeros MD Active LORTAB 5 5-500 MG TABS 1/2 to 1 tablet by mouth every 4 hours as needed for pain HYDROCODONE-ACETAMINOPHEN 95612569908 No Longer Active Tu Landeros MD Active ENALAPRIL MALEATE 20 MG TABS 1.5 po qd ENALAPRIL MALEATE 65680592600 Active Tu Landeros MD Active HYDROCODONE-ACETAMINOPHEN 5-500 MG TABS take one po Q 4-6 hours prn HYDROCODONE-ACETAMINOPHEN 79743935633 No Longer Active Tu Landeros MD Active BACTRIM DS 800-160 MG TABS 1 po BID x 7 days SULFAMETHOXAZOLE-TRIMETHOPRIM 85666452384 No Longer Active Tu Landeros MD Active VENLAFAXINE HCL 75 MG TABS 1 po BID VENLAFAXINE HCL 89518318062 No Longer Active Elvira Cervantes MD PhD Active TRAMADOL HCL 50 MG TABS 1 tablets every 6 hours as needed for pain TRAMADOL HCL 40188788266 No Longer Active Tu Landeros MD Active ACCU-CHEK FASTCLIX LANCETS MISC Use to check bloodsugar three times daily as needed LANCETS 90484728549 No Longer Active Tu Landeros MD Active ACCU-CHEK KEYONA PLUS STRP Use for testing bloodsugars three times daily as needed GLUCOSE BLOOD 50484523900 No Longer Active Tu Landeros MD Active ACCU-CHEK KEYONA PLUS W/DEVICE KIT Use for testing bloodsugars three times daily as needed BLOOD GLUCOSE MONITORING SUPPL 99507989313 No Longer Active Tu Landeros MD Active SPIRONOLACTONE 25 MG TAB 0.5 tablet by mouth daily SPIRONOLACTONE 17774453132 No Longer Active Tu Landeros MD Active ALPRAZOLAM 0.5 MG TABS 1 tab every 6hrs as needed ALPRAZOLAM 74092398517 No Longer Active Tu Landeros MD Active AUGMENTIN 875-125 MG TAB 1 tab by mouth twice daily with food AMOXICILLIN-POT CLAVULANATE 99289526853 No Longer Active Tu Landeros MD Active PREDNISONE 20 MG TAB 2 tabs daily for 3 days, 1 tab daily for 3 days, 1/2 tab daily for 2 days PREDNISONE 63231845294 No Longer Active Tu Landeros MD Active XANAX 0.5 MG TABS 1 tablet every 6 hrs prn ALPRAZOLAM 93162470720 No Longer Active Tu Landeros MD Active PREDNISONE 20 MG TAB 2 tabs daily for 3 days, 1 tab daily for 3 days, 1/2 tab daily for 2 days PREDNISONE 17930636059 No Longer Active Tu Landeros MD Active TRIAMCINOLONE ACETONIDE 0.1 % OINT Apply to affected areas TID for up to 2 weeks TRIAMCINOLONE ACETONIDE 01876687358 No Longer Active Tu Landeros MD Active LORTAB 5 5-500 MG TABS 1/2 to 1 tablet by mouth every 4 hours as needed for pain HYDROCODONE-ACETAMINOPHEN 55242500218 No Longer Active Tu Landeros MD Active MULTIVITAMINS TABS Take one by mouth daily MULTIPLE VITAMIN 73656463552 No Longer Active Tu Landeros MD Active MELATONIN 5 MG TABS Take one by mouth daily MELATONIN 62659045344 No Longer Active Tu Landeros MD Active SOMA 350 MG TAB 1 po q 6 hours prn spasm CARISOPRODOL 97685970780 No Longer Active Tu Landeros MD Active MECLIZINE HCL 25 MG CHEW TAB 1 four times a day as needed for dizziness 08/05 MECLIZINE HCL 75892326933 No Longer Active Fab Morales DO Active ANGEL BREEZE 2 TEST DISK test tid prn GLUCOSE BLOOD 82336584391 No Longer Active Negra Scott RN Active DICLOFENAC SODIUM 50 MG TBEC 1 tablet by mouth three times a day as needed DICLOFENAC SODIUM 90862724437 Active Tu Landeros MD Active REGLAN 10 MG TAB 1 po TID PRN [place] METOCLOPRAMIDE HCL 78695340522 No Longer Active Tu Landeros MD Active METFORMIN HCL 500 MG TABS 1 PO BID METFORMIN HCL 05701368248 No Longer Active Tu Landeros MD Active AMBIEN 10 MG TAB 1 tab by mouth at bedtime as needed for sleep ZOLPIDEM TARTRATE 72866785857 No Longer Active Tu Landeros MD Active FLUOXETINE HCL 40 MG CAPS 1 po q day FLUOXETINE HCL 11142828758 No Longer Active Mayra Empire Active FISH OIL 1000 MG CAPS Take one by mouth daily OMEGA-3 FATTY ACIDS 51816638740 Active Tu Landeros MD Active GLUCOSAMINE 500 MG TABS Take 2 tab po qd GLUCOSAMINE 29019215312 Active Tu Landeros MD Active TRILIPIX 135 MG CPDR 1 po qd CHOLINE FENOFIBRATE 28873214691 No Longer Active Tu Landeros MD Active ASPIRIN 81 MG CHEW TAB 1 tablet by mouth daily ASPIRIN 55254249448 Active Tu Landeros MD Active FUROSEMIDE 40 MG TAB 1 tablet by mouth daily FUROSEMIDE 93798692554 Active Tu Landeros MD Active REQUIP 2 MG TABS Take one tablet at bedtime prn ROPINIROLE HCL 52775995527 Active Tu Landeros MD Active KLOR-CON 10 10 MEQ CR-TABS TAKE 2 TABS DAILY POTASSIUM CHLORIDE 60197184685 Active Tu Landeros MD Active AMBIEN 10 MG TAB 1 tab by mouth at bedtime as needed for sleep AMBIEN 10 MG TAB 733823 ZOLPIDEM TARTRATE Inactive METFORMIN HCL 500 MG TABS 1 PO BID METFORMIN HCL 500 MG TABS 686453 METFORMIN HCL Inactive REGLAN 10 MG TAB 1 po TID PRN [place] REGLAN 10 MG TAB 033217 METOCLOPRAMIDE HCL Inactive MECLIZINE HCL 25 MG CHEW TAB 1 four times a day as needed for dizziness 08/05 MECLIZINE HCL 25 MG CHEW TAB 103399 MECLIZINE HCL Inactive SOMA 350 MG TAB 1 po q 6 hours prn spasm SOMA 350 MG TAB 806340 CARISOPRODOL Inactive MELATONIN 5 MG TABS Take one by mouth daily MELATONIN 5 MG TABS 187793 MELATONIN Inactive MULTIVITAMINS TABS Take one by mouth daily MULTIVITAMINS TABS MULTIPLE VITAMIN Inactive LORTAB 5 5-500 MG TABS 1/2 to 1 tablet by mouth every 4 hours as needed for pain LORTAB 5 5-500 MG TABS HYDROCODONE- ACETAMINOPHEN Inactive XANAX 0.5 MG TABS 1 tablet every 6 hrs prn XANAX 0.5 MG TABS 101035 ALPRAZOLAM Inactive AUGMENTIN 875-125 MG TAB 1 tab by mouth twice daily with food AUGMENTIN 875-125 MG TAB 872094 AMOXICILLIN-POT CLAVULANATE Inactive ALPRAZOLAM 0.5 MG TABS 1 tab every 6hrs as needed ALPRAZOLAM 0.5 MG TABS 544714 ALPRAZOLAM Inactive SPIRONOLACTONE 25 MG TAB 0.5 tablet by mouth daily SPIRONOLACTONE 25 MG TAB 790641 SPIRONOLACTONE Inactive ACCU-CHEK KEYONA PLUS W/DEVICE KIT Use for testing bloodsugars three times daily as needed ACCU-CHEK KEYONA PLUS W/DEVICE KIT BLOOD GLUCOSE MONITORING SUPPL Inactive ACCU-CHEK KEYONA PLUS STRP Use for testing bloodsugars three times daily as needed ACCU-CHEK KEYONA PLUS STRP GLUCOSE BLOOD Inactive ACCU-CHEK FASTCLIX LANCETS MISC Use to check bloodsugar three times daily as needed ACCU-CHEK FASTCLIX LANCETS MISC 19034377132 LANCETS Inactive TRAMADOL HCL 50 MG TABS 1 tablets every 6 hours as needed for pain TRAMADOL HCL 50 MG TABS 826076 TRAMADOL HCL Inactive VENLAFAXINE HCL 75 MG TABS 1 po BID VENLAFAXINE HCL 75 MG TABS 275593 VENLAFAXINE HCL Inactive HYDROCODONE-ACETAMINOPHEN 5-500 MG TABS take one po Q 4-6 hours prn HYDROCODONE-ACETAMINOPHEN 5-500 MG TABS HYDROCODONE- ACETAMINOPHEN Inactive LORTAB 5 5-500 MG TABS 1/2 to 1 tablet by mouth every 4 hours as needed for pain LORTAB 5 5-500 MG TABS HYDROCODONE- ACETAMINOPHEN Inactive LAMISIL 250 MG TAB 1 po qd LAMISIL 250 MG TAB 627776 TERBINAFINE HCL Inactive VENLAFAXINE HCL 37.5 MG TABS 1 po BID VENLAFAXINE HCL 37.5 MG TABS 639857 VENLAFAXINE HCL Inactive CIPRO 500 MG TAB 1 tablet by mouth twice daily CIPRO 500 MG TAB 412890 CIPROFLOXACIN HCL Inactive VENLAFAXINE HCL 75 MG TABS 1 po BID VENLAFAXINE HCL 75 MG TABS 980340 VENLAFAXINE HCL Inactive SIMVASTATIN 40 MG TABS Take one by mouth daily SIMVASTATIN 40 MG TABS 049142 SIMVASTATIN Inactive OMEPRAZOLE 20 MG TBEC 1 PO 30 MIN BEFORE 1ST MEAL OMEPRAZOLE 20 MG TBEC 778434 OMEPRAZOLE Inactive FENOFIBRATE 145 MG TABS 1 po qd FENOFIBRATE 145 MG TABS 900650 FENOFIBRATE Inactive BACTRIM DS 800-160 MG TABS 1 bid x 14 day start 09-28-13 BACTRIM DS 800-160 MG TABS SULFAMETHOXAZOLE-TRIMETHOPRIM Inactive B-12 100 MCG TABS Take one by mouth daily B-12 100 MCG TABS CYANOCOBALAMIN Inactive GABAPENTIN 100 MG CAPS 1 po bid GABAPENTIN 100 MG CAPS 915682 GABAPENTIN Inactive HYDROCODONE-ACETAMINOPHEN 5-325 MG TABS 1 tab by mouth every 6 hours as needed for pain HYDROCODONE-ACETAMINOPHEN 5-325 MG TABS 000852 HYDROCODONE-ACETAMINOPHEN Inactive CIPRO 500 MG TABS 1 bid x 14 days start 09-28-13 CIPRO 500 MG TABS 689536 CIPROFLOXACIN HCL Inactive ALIGN 4 MG CAPS [...] 2 weeks TRIAMCINOLONE ACETONIDE 0.1 % OINT 3532642 TRIAMCINOLONE ACETONIDE Inactive PREDNISONE 20 MG TAB 2 tabs daily for 3 days, 1 tab daily for 3 days, 1/2 tab daily for 2 days PREDNISONE 20 MG TAB 663717 PREDNISONE Inactive PREDNISONE 20 MG TAB 2 tabs daily for 3 days, 1 tab daily for 3 days, 1/2 tab daily for 2 days PREDNISONE 20 MG TAB 247631 PREDNISONE Inactive BACTRIM DS 800-160 MG TABS 1 po BID x 7 days BACTRIM DS 800-160 MG TABS SULFAMETHOXAZOLE-TRIMETHOPRIM Inactive Immunizations Vaccine Administration Date Value Standard Description Seasonal influenza vaccine, injectable, containing preservative, for > 3 years old (Afluria, FluLaval, Fluzone, Fluvirin, Fluarix, Agriflu(>=18 yo)) Fluzone (>3 yrs.) [[id number]] Influenza, seasonal, injectable influenza immunization (Flu Vax) has been administered 02/22/2012 influenza virus vaccine, unspecified formulation Seasonal influenza vaccine, injectable, containing preservative, for > 3 years old (Afluria, FluLaval, Fluzone, Fluvirin, Fluarix, Agriflu(>=18 yo)) Fluzone (>3 yrs.) [[id number]] Influenza, seasonal, injectable Vital Signs Date Name [...] CBC - Chemistry sodium, serum 143 mmol/L 379-086 0142/03/10 potassium, serum 4.9 mmol/L 3.5-5.2 chloride, serum [...] HGBA1C - Chemistry sodium, serum 144 mmol/L 644-943 9529/04/16 potassium, serum 4.2 mmol/L 3.5-5.2 chloride, serum [...] 0.20 mg/dL 0.00-1.00 cholesterol, serum 133 mg/dL 176-776 2628/04/16 triglyceride, serum, fasting 142 mg/dL 30-200 HDL [...] mg/dL Encounters Code Encounter Date Provider Facility CPT-62513 Level 4 Est. Patient 14:38:57 CDT Tu Landeros MD [facility] CPT-85266 Level 4 Est. Patient 14:27:39 GENERAL OFFICE ASSOCIATE Tu Landeros MD [facility] CPT-26256 Level 4 Est. Patient 09:45:25 CDT Tu Landeros MD [facility] CPT-25392 Level 4 Est. Patient 09:05:20 GENERAL OFFICE ASSOCIATE Tu Landeros MD [facility] CPT-43459 Level 4 Est. Patient 14:09:06 CDT Tu Landeros MD [facility] CPT-87394 Level 3 Est. Patient 13:36:54 CDT Tu Landeros MD [facility] CPT-98258 Level 3 Est. Patient 08:59:14 CDT Tu Landeros MD [facility] CPT-08585 Level 3 Est. Patient 13:48:35 CDT Fab Morales DO [facility] CPT-44698 Level 4 Est. Patient 10:05:48 CDT Tu Landeros MD [facility] CPT-85162 Level 3 Est. Patient 13:38:42 CDT Marek BANKS [facility] CPT-30076 Level 5 Est. Patient 08:08:39 CDT Jerrica FRANCIS [facility] CPT-00745 Level 4 Est. Patient 14:23:38 CDT Tu Landeros MD [facility] CPT-17498 Level 3 Est. Patient 11:44:04 CDT Tu Landeros MD [facility] CPT-67666 Level 3 Est. Patient 11:03:20 GENERAL OFFICE ASSOCIATE Tu Landeros MD [facility] CPT-76234 Level 3 Est. Patient 11:03:14 GENERAL OFFICE ASSOCIATE Tu Landeros MD [facility] CPT-60725 Level 3 Est. Patient 12:42:49 CDT Tu Landeros MD [facility] CPT-62758 Level 3 Est. Patient 11:52:06 CDT Tu Landeros MD [facility] CPT-21906 Level 3 Est. Patient 13:58:11 CDT Tu Landeros MD [facility] CPT-94290 Level 3 Est. Patient 17:50:07 CDT Fab Morales DO [facility] CPT-86783 Level 3 Est. Patient 12:06:29 CDT Elvira Cervantes MD, PhD [facility] CPT-94932 Level 3 Est. Patient 15:50:32 CDT Tu Landeros MD [facility] CPT-90409 Level 4 Est. Patient 16:08:29 CDT Tu Landeros MD [facility] CPT-21875 Level 3 Est. Patient 16:04:19 CDT Tu Landeros MD [facility] CPT-47403 Level 3 Est. Patient 11:22:30 GENERAL OFFICE ASSOCIATE Tu Landeros MD [facility] CPT-24065 Level 4 Est. Patient 16:24:02 GENERAL OFFICE ASSOCIATE Tu Landeros MD [facility] CPT-29374 Level 3 Est. Patient 17:21:23 GENERAL OFFICE ASSOCIATE Tu Landeros MD [facility] Procedures Code Procedure Name Date Entry Date Standard Description CPT-[id number] Asp/Joint Injection 15:51:27 GENERAL OFFICE ASSOCIATE CPT-OV Office Visit 15:52:02 GENERAL OFFICE ASSOCIATE CPT-OV Office Visit 15:45:11 CDT CPT-000 Give Zostavax 14:09:06 CDT CPT-26852 Administration single or combination vaccine inc oral 15 :19:04 CDT CPT-75707 Zoster Vaccine (Zostavax) 15:19:04 CDT CPT-52716 Administration single or combination vaccine inc oral 20 :51:03 CDT CPT-85942 Influenza split virus > age 3 20:51:03 CDT CPT-42430 No Charge Offi Visit 14:52:03 CDT CPT-OV Office Visit 14:57:43 CDT CPT-OV Office Visit 15:22:32 CDT CPT-69215 Administration single or combination vaccine inc oral 11 :33:15 CDT CPT-28037 Influenza split virus > age 3 11:33:15 CDT
--- OUTSIDE RECORDS SUMMARY | 2018-04-25 19:30 | XMS REPORT | Clinical Summary ---
Author Author Admin, SACHI Clemons [facility] Address Unknown Phone Unavailable Allergies, Adverse [...] sugar twice daily dx: 250.00 LANCET DEVICES 65711297210 Active Tu Landeros MD Active TRUEDRAW LANCING DEVICE MISC Test twice a day dx 250.0 LANCET DEVICES 93491552303 Active Tu Landeros MD Active TRUERESULT BLOOD GLUCOSE W/DEVICE KIT test blood sugar twice daily dx 250.00 BLOOD GLUCOSE MONITORING SUPPL 89760924109 Active Tu Landeros MD Active TRUETEST TEST INVITR STRP test blood sugar twice daily. DX 250.0 GLUCOSE BLOOD 72056576183 Active Tu Landeros MD Active EMBRACE BLOOD GLUCOSE TEST STRP test blood sugar twice daily DX 250.0 2014 GLUCOSE BLOOD 28378668412 No Longer Active Tu Landeros MD Active TRUETEST TEST STRP test blood sugar three times daily dx: 250.00 GLUCOSE BLOOD 20017351249 No Longer Active Suzebianca VOGEL Active TRUERESULT BLOOD GLUCOSE W/DEVICE KIT use to test blood sugar tid dx: 250.00 BLOOD GLUCOSE MONITORING SUPPL 44711023425 No Longer Active Suze Corey RMA Active ALIGN 4 MG CAPS 1 tid PROBIOTIC PRODUCT 87165330101 No Longer Active Shaun Sy MD Active CIPRO 500 MG TABS 1 bid x 14 days start 5-01-04 CIPROFLOXACIN HCL 56101347837 No Longer Active Shaun Sy MD Active TRAMADOL HCL 50 MG TABS 1-2 tablets every 6 hours as needed for pain TRAMADOL HCL 78270090901 Active Tu Landeros MD Active HYDROCODONE-ACETAMINOPHEN 5-325 MG TABS 1 tab by mouth every 6 hours as needed for pain HYDROCODONE-ACETAMINOPHEN 39421644095 No Longer Active Tu Landeros MD Active OMEPRAZOLE 20 MG CPDR 1 po q a.m. OMEPRAZOLE 19468696458 Active Tu Landeros MD Active GABAPENTIN 100 MG CAPS 1 po bid GABAPENTIN 17341799352 No Longer Active Tu Landeros MD Active B-12 100 MCG TABS Take one by mouth daily CYANOCOBALAMIN 96987721643 No Longer Active Tu Landeros MD Active GABAPENTIN 100 MG CAPS by mouth twice a day GABAPENTIN 20417917007 Active Tu Landeros MD Active BACTRIM DS 800-160 MG TABS 1 bid x 14 day start 09-28-13 SULFAMETHOXAZOLE-TRIMETHOPRIM 56532167034 No Longer Active Tu Landeros MD Active SIMVASTATIN 40 MG TABS 1 tab daily at bedtime SIMVASTATIN 53320058559 Active Tu Landeros MD Active CARVEDILOL 12.5 MG TABS 1 po BID CARVEDILOL 84211414534 Active Tu Landeros MD Active SUPER B COMPLEX/VITAMIN C TABS 1 qd B COMPLEX-C 55688906395 Active JASPREET Perez Active TRILIPIX 135 MG CPDR 1 q hs CHOLINE FENOFIBRATE 66955603462 Active Tu Landeros MD Active FENOFIBRATE 145 MG TABS 1 po qd FENOFIBRATE 75928994977 No Longer Active JASPREET Perez Active OMEPRAZOLE 20 MG TBEC 1 PO 30 MIN BEFORE 1ST MEAL OMEPRAZOLE 68857424457 No Longer Active JASPREET Perez Active SIMVASTATIN 40 MG TABS Take one by mouth daily SIMVASTATIN 41939654075 No Longer Active JASPREET Perez Active VENLAFAXINE HCL 37.5 MG TABS 1 bid VENLAFAXINE HCL 29056050819 Active Tu Landeros MD Active VENLAFAXINE HCL 75 MG TABS 1 po BID VENLAFAXINE HCL 37317389051 No Longer Active JASPREET Perez Active METFORMIN HCL 500 MG TB24 1.5 po BID METFORMIN HCL 81699187943 Active Tu Landeros MD Active CIPRO 500 MG TAB 1 tablet by mouth twice daily CIPROFLOXACIN HCL 27178764135 No Longer Active Tu Landeros MD Active VENLAFAXINE HCL 37.5 MG TABS 1 po BID VENLAFAXINE HCL 60840303329 No Longer Active Suzebianca Nicole RMA Active CVS STOOL SOFTENER 100 MG CAPS 1 tab daily DOCUSATE SODIUM 75274182978 Active Tu Landeros MD Active LAMISIL 250 MG TAB 1 po qd TERBINAFINE HCL 75582560471 No Longer Active Tu Landeros MD Active LORTAB 5 5-500 MG TABS 1/2 to 1 tablet by mouth every 4 hours as needed for pain HYDROCODONE-ACETAMINOPHEN 35894703555 No Longer Active Tu Landeros MD Active ENALAPRIL MALEATE 20 MG TABS 1.5 po qd ENALAPRIL MALEATE 50167685554 Active Tu Landeros MD Active HYDROCODONE-ACETAMINOPHEN 5-500 MG TABS take one po Q 4-6 hours prn HYDROCODONE-ACETAMINOPHEN 48019240072 No Longer Active Tu Landeros MD Active BACTRIM DS 800-160 MG TABS 1 po BID x 7 days SULFAMETHOXAZOLE-TRIMETHOPRIM 43898401243 No Longer Active Tu Landeros MD Active VENLAFAXINE HCL 75 MG TABS 1 po BID VENLAFAXINE HCL 01239532274 No Longer Active Elvira Cervantes MD PhD Active TRAMADOL HCL 50 MG TABS 1 tablets every 6 hours as needed for pain TRAMADOL HCL 76021920377 No Longer Active Tu Landeros MD Active ACCU-CHEK FASTCLIX LANCETS MISC Use to check bloodsugar three times daily as needed LANCETS 14421763327 No Longer Active Tu Landeros MD Active ACCU-CHEK KEYONA PLUS STRP Use for testing bloodsugars three times daily as needed GLUCOSE BLOOD 49384383189 No Longer Active Tu Landeros MD Active ACCU-CHEK KEYONA PLUS W/DEVICE KIT Use for testing bloodsugars three times daily as needed BLOOD GLUCOSE MONITORING SUPPL 26831349979 No Longer Active Tu Landeros MD Active SPIRONOLACTONE 25 MG TAB 0.5 tablet by mouth daily SPIRONOLACTONE 99361908525 No Longer Active Tu Landeros MD Active ALPRAZOLAM 0.5 MG TABS 1 tab every 6hrs as needed ALPRAZOLAM 58441514883 No Longer Active Tu Landeros MD Active AUGMENTIN 875-125 MG TAB 1 tab by mouth twice daily with food AMOXICILLIN-POT CLAVULANATE 00945135213 No Longer Active Tu Landeros MD Active PREDNISONE 20 MG TAB 2 tabs daily for 3 days, 1 tab daily for 3 days, 1/2 tab daily for 2 days PREDNISONE 14015051954 No Longer Active Tu Landeros MD Active XANAX 0.5 MG TABS 1 tablet every 6 hrs prn ALPRAZOLAM 49217578856 No Longer Active Tu Landeros MD Active PREDNISONE 20 MG TAB 2 tabs daily for 3 days, 1 tab daily for 3 days, 1/2 tab daily for 2 days PREDNISONE 02896785593 No Longer Active Tu Landeros MD Active TRIAMCINOLONE ACETONIDE 0.1 % OINT Apply to affected areas TID for up to 2 weeks TRIAMCINOLONE ACETONIDE 35965678317 No Longer Active Tu Landeros MD Active LORTAB 5 5-500 MG TABS 1/2 to 1 tablet by mouth every 4 hours as needed for pain HYDROCODONE-ACETAMINOPHEN 03182781520 No Longer Active Tu Landeros MD Active MULTIVITAMINS TABS Take one by mouth daily MULTIPLE VITAMIN 88623090504 No Longer Active Tu Landeros MD Active MELATONIN 5 MG TABS Take one by mouth daily MELATONIN 78675226883 No Longer Active Tu Landeros MD Active SOMA 350 MG TAB 1 po q 6 hours prn spasm CARISOPRODOL 46726465073 No Longer Active Tu Landeros MD Active MECLIZINE HCL 25 MG CHEW TAB 1 four times a day as needed for dizziness 08/05 MECLIZINE HCL 32059114821 No Longer Active Fab Morales DO Active ANGEL BREEZE 2 TEST DISK test tid prn GLUCOSE BLOOD 30595192813 No Longer Active Negra Scott RN Active DICLOFENAC SODIUM 50 MG TBEC 1 tablet by mouth three times a day as needed DICLOFENAC SODIUM 42038120923 Active Tu Landeros MD Active REGLAN 10 MG TAB 1 po TID PRN [place] METOCLOPRAMIDE HCL 70695834323 No Longer Active Tu Landeros MD Active METFORMIN HCL 500 MG TABS 1 PO BID METFORMIN HCL 78417035239 No Longer Active Tu Landeros MD Active AMBIEN 10 MG TAB 1 tab by mouth at bedtime as needed for sleep ZOLPIDEM TARTRATE 09980756544 No Longer Active Tu Landeros MD Active FLUOXETINE HCL 40 MG CAPS 1 po q day FLUOXETINE HCL 45801518773 No Longer Active Mayra [place] Active FISH OIL 1000 MG CAPS Take one by mouth daily OMEGA-3 FATTY ACIDS 59854957675 Active Tu Landeros MD Active GLUCOSAMINE 500 MG TABS Take 2 tab po qd GLUCOSAMINE 54603920415 Active Tu Landeros MD Active TRILIPIX 135 MG CPDR 1 po qd CHOLINE FENOFIBRATE 59648111819 No Longer Active Tu Landeros MD Active ASPIRIN 81 MG CHEW TAB 1 tablet by mouth daily ASPIRIN 61792014146 Active Tu Landeros MD Active FUROSEMIDE 40 MG TAB 1 tablet by mouth daily FUROSEMIDE 47505368187 Active Tu Landeros MD Active REQUIP 2 MG TABS Take one tablet at bedtime prn ROPINIROLE HCL 97853125326 Active Tu Landeros MD Active KLOR-CON 10 10 MEQ CR-TABS TAKE 2 TABS DAILY POTASSIUM CHLORIDE 02773644416 Active Tu Landeros MD Active AMBIEN 10 MG TAB 1 tab by mouth at bedtime as needed for sleep AMBIEN 10 MG TAB 727888 ZOLPIDEM TARTRATE Inactive METFORMIN HCL 500 MG TABS 1 PO BID METFORMIN HCL 500 MG TABS 681716 METFORMIN HCL Inactive REGLAN 10 MG TAB 1 po TID PRN [place] REGLAN 10 MG TAB 243367 METOCLOPRAMIDE HCL Inactive MECLIZINE HCL 25 MG CHEW TAB 1 four times a day as needed for dizziness 08/05 MECLIZINE HCL 25 MG CHEW TAB 045871 MECLIZINE HCL Inactive SOMA 350 MG TAB 1 po q 6 hours prn spasm SOMA 350 MG TAB 920179 CARISOPRODOL Inactive MELATONIN 5 MG TABS Take one by mouth daily MELATONIN 5 MG TABS 174191 MELATONIN Inactive MULTIVITAMINS TABS Take one by mouth daily MULTIVITAMINS TABS MULTIPLE VITAMIN Inactive LORTAB 5 5-500 MG TABS 1/2 to 1 tablet by mouth every 4 hours as needed for pain LORTAB 5 5-500 MG TABS HYDROCODONE- ACETAMINOPHEN Inactive XANAX 0.5 MG TABS 1 tablet every 6 hrs prn XANAX 0.5 MG TABS 930624 ALPRAZOLAM Inactive AUGMENTIN 875-125 MG TAB 1 tab by mouth twice daily with food AUGMENTIN 875-125 MG TAB 720896 AMOXICILLIN-POT CLAVULANATE Inactive ALPRAZOLAM 0.5 MG TABS 1 tab every 6hrs as needed ALPRAZOLAM 0.5 MG TABS 693758 ALPRAZOLAM Inactive SPIRONOLACTONE 25 MG TAB 0.5 tablet by mouth daily SPIRONOLACTONE 25 MG TAB 682765 SPIRONOLACTONE Inactive ACCU-CHEK KEYONA PLUS W/DEVICE KIT Use for testing bloodsugars three times daily as needed ACCU-CHEK KEYONA PLUS W/DEVICE KIT BLOOD GLUCOSE MONITORING SUPPL Inactive ACCU-CHEK KEYONA PLUS STRP Use for testing bloodsugars three times daily as needed ACCU-CHEK KEYONA PLUS STRP GLUCOSE BLOOD Inactive ACCU-CHEK FASTCLIX LANCETS MISC Use to check bloodsugar three times daily as needed ACCU-CHEK FASTCLIX LANCETS MISC 47662026023 LANCETS Inactive TRAMADOL HCL 50 MG TABS 1 tablets every 6 hours as needed for pain TRAMADOL HCL 50 MG TABS 590751 TRAMADOL HCL Inactive VENLAFAXINE HCL 75 MG TABS 1 po BID VENLAFAXINE HCL 75 MG TABS 311900 VENLAFAXINE HCL Inactive HYDROCODONE-ACETAMINOPHEN 5-500 MG TABS take one po Q 4-6 hours prn HYDROCODONE-ACETAMINOPHEN 5-500 MG TABS HYDROCODONE- ACETAMINOPHEN Inactive LORTAB 5 5-500 MG TABS 1/2 to 1 tablet by mouth every 4 hours as needed for pain LORTAB 5 5-500 MG TABS HYDROCODONE- ACETAMINOPHEN Inactive LAMISIL 250 MG TAB 1 po qd LAMISIL 250 MG TAB 617073 TERBINAFINE HCL Inactive VENLAFAXINE HCL 37.5 MG TABS 1 po BID VENLAFAXINE HCL 37.5 MG TABS 647784 VENLAFAXINE HCL Inactive CIPRO 500 MG TAB 1 tablet by mouth twice daily CIPRO 500 MG TAB 855451 CIPROFLOXACIN HCL Inactive VENLAFAXINE HCL 75 MG TABS 1 po BID VENLAFAXINE HCL 75 MG TABS 525397 VENLAFAXINE HCL Inactive SIMVASTATIN 40 MG TABS Take one by mouth daily SIMVASTATIN 40 MG TABS 267824 SIMVASTATIN Inactive OMEPRAZOLE 20 MG TBEC 1 PO 30 MIN BEFORE 1ST MEAL OMEPRAZOLE 20 MG TBEC 484903 OMEPRAZOLE Inactive FENOFIBRATE 145 MG TABS 1 po qd FENOFIBRATE 145 MG TABS 278452 FENOFIBRATE Inactive BACTRIM DS 800-160 MG TABS 1 bid x 14 day start 09-28-13 BACTRIM DS 800-160 MG TABS SULFAMETHOXAZOLE-TRIMETHOPRIM Inactive B-12 100 MCG TABS Take one by mouth daily B-12 100 MCG TABS CYANOCOBALAMIN Inactive GABAPENTIN 100 MG CAPS 1 po bid GABAPENTIN 100 MG CAPS 388274 GABAPENTIN Inactive HYDROCODONE-ACETAMINOPHEN 5-325 MG TABS 1 tab by mouth every 6 hours as needed for pain HYDROCODONE-ACETAMINOPHEN 5-325 MG TABS 549701 HYDROCODONE-ACETAMINOPHEN Inactive CIPRO 500 MG TABS 1 bid x 14 days start 09-28-13 CIPRO 500 MG TABS 046123 CIPROFLOXACIN HCL Inactive ALIGN 4 MG CAPS [...] 2 weeks TRIAMCINOLONE ACETONIDE 0.1 % OINT 8982641 TRIAMCINOLONE ACETONIDE Inactive PREDNISONE 20 MG TAB 2 tabs daily for 3 days, 1 tab daily for 3 days, 1/2 tab daily for 2 days PREDNISONE 20 MG TAB 231594 PREDNISONE Inactive PREDNISONE 20 MG TAB 2 tabs daily for 3 days, 1 tab daily for 3 days, 1/2 tab daily for 2 days PREDNISONE 20 MG TAB 186936 PREDNISONE Inactive BACTRIM DS 800-160 MG TABS 1 po BID x 7 days BACTRIM DS 800-160 MG TABS SULFAMETHOXAZOLE-TRIMETHOPRIM Inactive Immunizations Vaccine Administration Date Value Standard Description Seasonal influenza vaccine, injectable, containing preservative, for > 3 years old (Afluria, FluLaval, Fluzone, Fluvirin, Fluarix, Agriflu(>=18 yo)) Fluzone (>3 yrs.) [[id number]] Influenza, seasonal, injectable influenza immunization (Flu Vax) has been administered 02/22/2012 influenza virus vaccine, unspecified formulation Seasonal influenza vaccine, injectable, containing preservative, for > 3 years old (Afluria, FluLaval, Fluzone, Fluvirin, Fluarix, Agriflu(>=18 yo)) Fluzone (>3 yrs.) [[id number]] Influenza, seasonal, injectable Vital Signs Date Name [...] CBC - Chemistry sodium, serum 143 mmol/L 976-300 7292/03/10 potassium, serum 4.9 mmol/L 3.5-5.2 chloride, serum [...] HGBA1C - Chemistry sodium, serum 144 mmol/L 205-471 6140/04/16 potassium, serum 4.2 mmol/L 3.5-5.2 chloride, serum [...] 0.20 mg/dL 0.00-1.00 cholesterol, serum 133 mg/dL 170-956 1590/04/16 triglyceride, serum, fasting 142 mg/dL 30-200 HDL [...] mg/dL Encounters Code Encounter Date Provider Facility CPT-66602 Level 4 Est. Patient 14:38:57 CDT Tu Landeros MD [facility] CPT-68320 Level 4 Est. Patient 14:27:39 ACADEMIC SPECIALIST Tu Landeros MD [facility] CPT-55944 Level 4 Est. Patient 09:45:25 CDT Tu Landeros MD [facility] CPT-40502 Level 4 Est. Patient 09:05:20 ACADEMIC SPECIALIST Tu Landeros MD [facility] CPT-80233 Level 4 Est. Patient 14:09:06 CDT Tu Landeros MD [facility] CPT-50784 Level 3 Est. Patient 13:36:54 CDT Tu Landeros MD [facility] CPT-98669 Level 3 Est. Patient 08:59:14 CDT Tu Landeros MD [facility] CPT-89601 Level 3 Est. Patient 13:48:35 CDT Fab Morales DO [facility] CPT-01547 Level 4 Est. Patient 10:05:48 CDT uT Landeros MD [facility] CPT-14357 Level 3 Est. Patient 13:38:42 CDT Marek BANKS [facility] CPT-18497 Level 5 Est. Patient 08:08:39 CDT Jerrica FRANCIS [facility] CPT-34488 Level 4 Est. Patient 14:23:38 CDT Tu Landeros MD [facility] CPT-13508 Level 3 Est. Patient 11:44:04 CDT Tu Landeros MD [facility] CPT-74537 Level 3 Est. Patient 11:03:20 ACADEMIC SPECIALIST Tu Landeros MD [facility] CPT-85231 Level 3 Est. Patient 11:03:14 ACADEMIC SPECIALIST Tu Landeros MD [facility] CPT-34676 Level 3 Est. Patient 12:42:49 CDT Tu Landeros MD [facility] CPT-53941 Level 3 Est. Patient 11:52:06 CDT Tu Landeros MD [facility] CPT-01246 Level 3 Est. Patient 13:58:11 CDT Tu Landeros MD [facility] CPT-93788 Level 3 Est. Patient 17:50:07 CDT Fab Morales DO [facility] CPT-70272 Level 3 Est. Patient 12:06:29 CDT Elvira Cervantes MD, PhD [facility] CPT-03624 Level 3 Est. Patient 15:50:32 CDT Tu Landeros MD [facility] CPT-84084 Level 4 Est. Patient 16:08:29 CDT Tu Landeros MD [facility] CPT-23576 Level 3 Est. Patient 16:04:19 CDT Tu Landeros MD [facility] CPT-21910 Level 3 Est. Patient 11:22:30 ACADEMIC SPECIALIST Tu Landeros MD [facility] CPT-05717 Level 4 Est. Patient 16:24:02 ACADEMIC SPECIALIST Tu Landeros MD [facility] CPT-70915 Level 3 Est. Patient 17:21:23 ACADEMIC SPECIALIST Tu Landeros MD [facility] Procedures Code Procedure Name Date Entry Date Standard Description CPT-[id number] Asp/Joint Injection 15:51:27 ACADEMIC SPECIALIST CPT-OV Office Visit 15:52:02 ACADEMIC SPECIALIST CPT-OV Office Visit 15:45:11 CDT CPT-000 Give Zostavax 14:09:06 CDT CPT-74471 Administration single or combination vaccine inc oral 15 :19:04 CDT CPT-66070 Zoster Vaccine (Zostavax) 15:19:04 CDT CPT-20552 Administration single or combination vaccine inc oral 20 :51:03 CDT CPT-40281 Influenza split virus > age 3 20:51:03 CDT CPT-86703 No Charge Offi Visit 14:52:03 CDT CPT-OV Office Visit 14:57:43 CDT CPT-OV Office Visit 15:22:32 CDT CPT-61278 Administration single or combination vaccine inc oral 11 :33:15 CDT CPT-46307 Influenza split virus > age 3 11:33:15 CDT
--- OUTSIDE RECORDS SUMMARY | 2018-04-25 19:31 | XMS REPORT | Clinical Summary ---
Author Author Admin, SACHI Clemons [facility] Address Unknown Phone Unavailable Allergies, Adverse Reactions, [...] sugar twice daily dx: 250.00 LANCET DEVICES 12461697523 Active Tu Landeros MD Active TRUEDRAW LANCING DEVICE MISC Test twice a day dx 250.0 LANCET DEVICES 67048062032 Active Tu Landeros MD Active TRUERESULT BLOOD GLUCOSE W/DEVICE KIT test blood sugar twice daily dx 250.00 BLOOD GLUCOSE MONITORING SUPPL 72584158714 Active Tu Landeros MD Active TRUETEST TEST INVITR STRP test blood sugar twice daily. DX 250.0 GLUCOSE BLOOD 31687691354 Active Tu Landeros MD Active EMBRACE BLOOD GLUCOSE TEST STRP test blood sugar twice daily DX 250.0 2014 GLUCOSE BLOOD 83274168185 No Longer Active Tu Landeros MD Active TRUETEST TEST STRP test blood sugar three times daily dx: 250.00 GLUCOSE BLOOD 58663394336 No Longer Active Suze VOGEL Active TRUERESULT BLOOD GLUCOSE W/DEVICE KIT use to test blood sugar tid dx: 250.00 BLOOD GLUCOSE MONITORING SUPPL 31008911627 No Longer Active Suze VOGEL Active ALIGN 4 MG CAPS 1 tid PROBIOTIC PRODUCT 96044039322 No Longer Active Shaun Sy MD Active CIPRO 500 MG TABS 1 bid x 14 days start 09-28-13 CIPROFLOXACIN HCL 74647572554 No Longer Active Shaun Sy MD Active TRAMADOL HCL 50 MG TABS 1-2 tablets every 6 hours as needed for pain TRAMADOL HCL 12994573561 Active Tu Landeros MD Active HYDROCODONE-ACETAMINOPHEN 5-325 MG TABS 1 tab by mouth every 6 hours as needed for pain HYDROCODONE-ACETAMINOPHEN 05198108080 No Longer Active Tu Landeros MD Active OMEPRAZOLE 20 MG CPDR 1 po q a.m. OMEPRAZOLE 00864594625 Active Tu Landeros MD Active GABAPENTIN 100 MG CAPS 1 po bid GABAPENTIN 92078454302 No Longer Active Tu Landeros MD Active B-12 100 MCG TABS Take one by mouth daily CYANOCOBALAMIN 86158426457 No Longer Active Tu Landeros MD Active GABAPENTIN 100 MG CAPS by mouth twice a day GABAPENTIN 66741975703 Active Tu Landeros MD Active BACTRIM DS 800-160 MG TABS 1 bid x 14 day start 09-28-13 SULFAMETHOXAZOLE-TRIMETHOPRIM 08397813487 No Longer Active Tu Landeros MD Active SIMVASTATIN 40 MG TABS 1 tab daily at bedtime SIMVASTATIN 45966828878 Active Tu Landeros MD Active CARVEDILOL 12.5 MG TABS 1 po BID CARVEDILOL 15195047444 Active Tu Landeros MD Active SUPER B COMPLEX/VITAMIN C TABS 1 qd B COMPLEX-C 23023221634 Active JASPREET Perez Active TRILIPIX 135 MG CPDR 1 q hs CHOLINE FENOFIBRATE 20306698665 Active Tu Landeros MD Active FENOFIBRATE 145 MG TABS 1 po qd FENOFIBRATE 02237035993 No Longer Active JASPREET Perez Active OMEPRAZOLE 20 MG TBEC 1 PO 30 MIN BEFORE 1ST MEAL OMEPRAZOLE 35120046264 No Longer Active JASPREET Perez Active SIMVASTATIN 40 MG TABS Take one by mouth daily SIMVASTATIN 67040996029 No Longer Active JASPREET Perez Active VENLAFAXINE HCL 37.5 MG TABS 1 bid VENLAFAXINE HCL 08933227707 Active Tu Landeros MD Active VENLAFAXINE HCL 75 MG TABS 1 po BID VENLAFAXINE HCL 14955211699 No Longer Active JASPREET Perez Active METFORMIN HCL 500 MG TB24 1.5 po BID METFORMIN HCL 52256152250 Active Tu Landeros MD Active CIPRO 500 MG TAB 1 tablet by mouth twice daily CIPROFLOXACIN HCL 68278770496 No Longer Active Tu Landeros MD Active VENLAFAXINE HCL 37.5 MG TABS 1 po BID VENLAFAXINE HCL 85945399094 No Longer Active Suze Nicole RMA Active [employer] STOOL SOFTENER 100 MG CAPS 1 tab daily DOCUSATE SODIUM 91352314394 Active Tu Landeros MD Active LAMISIL 250 MG TAB 1 po qd TERBINAFINE HCL 62221409265 No Longer Active Tu Landeros MD Active LORTAB 5 5-500 MG TABS 1/2 to 1 tablet by mouth every 4 hours as needed for pain HYDROCODONE-ACETAMINOPHEN 23132534822 No Longer Active Tu Landeros MD Active ENALAPRIL MALEATE 20 MG TABS 1.5 po qd ENALAPRIL MALEATE 84362976934 Active Tu Landeros MD Active HYDROCODONE-ACETAMINOPHEN 5-500 MG TABS take one po Q 4-6 hours prn HYDROCODONE-ACETAMINOPHEN 11198387334 No Longer Active Tu Landeros MD Active BACTRIM DS 800-160 MG TABS 1 po BID x 7 days SULFAMETHOXAZOLE-TRIMETHOPRIM 45831481904 No Longer Active Tu Landeros MD Active VENLAFAXINE HCL 75 MG TABS 1 po BID VENLAFAXINE HCL 65885278144 No Longer Active Elvira Cervantes MD PhD Active TRAMADOL HCL 50 MG TABS 1 tablets every 6 hours as needed for pain TRAMADOL HCL 54077695325 No Longer Active Tu Landeros MD Active ACCU-CHEK FASTCLIX LANCETS MISC Use to check bloodsugar three times daily as needed LANCETS 53208797043 No Longer Active Tu Landeros MD Active ACCU-CHEK KEYONA PLUS STRP Use for testing bloodsugars three times daily as needed GLUCOSE BLOOD 48402245953 No Longer Active Tu Landeros MD Active ACCU-CHEK KEYONA PLUS W/DEVICE KIT Use for testing bloodsugars three times daily as needed BLOOD GLUCOSE MONITORING SUPPL 57475686267 No Longer Active Tu Landeros MD Active SPIRONOLACTONE 25 MG TAB 0.5 tablet by mouth daily SPIRONOLACTONE 77483879803 No Longer Active Tu Landeros MD Active ALPRAZOLAM 0.5 MG TABS 1 tab every 6hrs as needed ALPRAZOLAM 17892652574 No Longer Active Tu Landeros MD Active AUGMENTIN 875-125 MG TAB 1 tab by mouth twice daily with food AMOXICILLIN-POT CLAVULANATE 52336286961 No Longer Active Tu Landeros MD Active PREDNISONE 20 MG TAB 2 tabs daily for 3 days, 1 tab daily for 3 days, 1/2 tab daily for 2 days PREDNISONE 70309406409 No Longer Active Tu Landeros MD Active XANAX 0.5 MG TABS 1 tablet every 6 hrs prn ALPRAZOLAM 78043704638 No Longer Active Tu Landeros MD Active PREDNISONE 20 MG TAB 2 tabs daily for 3 days, 1 tab daily for 3 days, 1/2 tab daily for 2 days PREDNISONE 73583404552 No Longer Active Tu Landeros MD Active TRIAMCINOLONE ACETONIDE 0.1 % OINT Apply to affected areas TID for up to 2 weeks TRIAMCINOLONE ACETONIDE 01074913415 No Longer Active Tu Landeros MD Active LORTAB 5 5-500 MG TABS 1/2 to 1 tablet by mouth every 4 hours as needed for pain HYDROCODONE-ACETAMINOPHEN 16477741083 No Longer Active Tu Landeros MD Active MULTIVITAMINS TABS Take one by mouth daily MULTIPLE VITAMIN 60685516347 No Longer Active Tu Landeros MD Active MELATONIN 5 MG TABS Take one by mouth daily MELATONIN 47352264068 No Longer Active Tu Landeros MD Active SOMA 350 MG TAB 1 po q 6 hours prn spasm CARISOPRODOL 76590798494 No Longer Active Tu Landeros MD Active MECLIZINE HCL 25 MG CHEW TAB 1 four times a day as needed for dizziness 08/05 MECLIZINE HCL 29164044825 No Longer Active Fab Morales DO Active ANGEL BREEZE 2 TEST DISK test tid prn GLUCOSE BLOOD 42514871351 No Longer Active Negra Scott RN Active DICLOFENAC SODIUM 50 MG TBEC 1 tablet by mouth three times a day as needed DICLOFENAC SODIUM 06613213037 Active Tu Landeros MD Active REGLAN 10 MG TAB 1 po TID PRN [place] METOCLOPRAMIDE HCL 57403914588 No Longer Active Tu Landeros MD Active METFORMIN HCL 500 MG TABS 1 PO BID METFORMIN HCL 14902100501 No Longer Active Tu Landeros MD Active AMBIEN 10 MG TAB 1 tab by mouth at bedtime as needed for sleep ZOLPIDEM TARTRATE 19395164797 No Longer Active Tu Landeros MD Active FLUOXETINE HCL 40 MG CAPS 1 po q day FLUOXETINE HCL 59506740341 No Longer Active Mayra [place] Active FISH OIL 1000 MG CAPS Take one by mouth daily OMEGA-3 FATTY ACIDS 06432321081 Active Tu Landeros MD Active GLUCOSAMINE 500 MG TABS Take 2 tab po qd GLUCOSAMINE 99794212099 Active Tu Landeros MD Active TRILIPIX 135 MG CPDR 1 po qd CHOLINE FENOFIBRATE 94768027537 No Longer Active Tu Landeros MD Active ASPIRIN 81 MG CHEW TAB 1 tablet by mouth daily ASPIRIN 78851100516 Active Tu Landeros MD Active FUROSEMIDE 40 MG TAB 1 tablet by mouth daily FUROSEMIDE 66329158222 Active Tu Landeros MD Active REQUIP 2 MG TABS Take one tablet at bedtime prn ROPINIROLE HCL 85802286546 Active Tu Landeros MD Active KLOR-CON 10 10 MEQ CR-TABS TAKE 2 TABS DAILY POTASSIUM CHLORIDE 37664478325 Active Tu Landeros MD Active AMBIEN 10 MG TAB 1 tab by mouth at bedtime as needed for sleep AMBIEN 10 MG TAB 909573 ZOLPIDEM TARTRATE Inactive METFORMIN HCL 500 MG TABS 1 PO BID METFORMIN HCL 500 MG TABS 558518 METFORMIN HCL Inactive REGLAN 10 MG TAB 1 po TID PRN [place] REGLAN 10 MG TAB 647178 METOCLOPRAMIDE HCL Inactive MECLIZINE HCL 25 MG CHEW TAB 1 four times a day as needed for dizziness 08/05 MECLIZINE HCL 25 MG CHEW TAB 135415 MECLIZINE HCL Inactive SOMA 350 MG TAB 1 po q 6 hours prn spasm SOMA 350 MG TAB 086887 CARISOPRODOL Inactive MELATONIN 5 MG TABS Take one by mouth daily MELATONIN 5 MG TABS 097991 MELATONIN Inactive MULTIVITAMINS TABS Take one by mouth daily MULTIVITAMINS TABS MULTIPLE VITAMIN Inactive LORTAB 5 5-500 MG TABS 1/2 to 1 tablet by mouth every 4 hours as needed for pain LORTAB 5 5-500 MG TABS HYDROCODONE- ACETAMINOPHEN Inactive XANAX 0.5 MG TABS 1 tablet every 6 hrs prn XANAX 0.5 MG TABS 679039 ALPRAZOLAM Inactive AUGMENTIN 875-125 MG TAB 1 tab by mouth twice daily with food AUGMENTIN 875-125 MG TAB 327787 AMOXICILLIN-POT CLAVULANATE Inactive ALPRAZOLAM 0.5 MG TABS 1 tab every 6hrs as needed ALPRAZOLAM 0.5 MG TABS 581217 ALPRAZOLAM Inactive SPIRONOLACTONE 25 MG TAB 0.5 tablet by mouth daily SPIRONOLACTONE 25 MG TAB 863814 SPIRONOLACTONE Inactive ACCU-CHEK KEYONA PLUS W/DEVICE KIT Use for testing bloodsugars three times daily as needed ACCU-CHEK KEYONA PLUS W/DEVICE KIT BLOOD GLUCOSE MONITORING SUPPL Inactive ACCU-CHEK KEYONA PLUS STRP Use for testing bloodsugars three times daily as needed ACCU-CHEK KEYONA PLUS STRP GLUCOSE BLOOD Inactive ACCU-CHEK FASTCLIX LANCETS MISC Use to check bloodsugar three times daily as needed ACCU-CHEK FASTCLIX LANCETS MISC 72304524305 LANCETS Inactive TRAMADOL HCL 50 MG TABS 1 tablets every 6 hours as needed for pain TRAMADOL HCL 50 MG TABS 788684 TRAMADOL HCL Inactive VENLAFAXINE HCL 75 MG TABS 1 po BID VENLAFAXINE HCL 75 MG TABS 478897 VENLAFAXINE HCL Inactive HYDROCODONE-ACETAMINOPHEN 5-500 MG TABS take one po Q 4-6 hours prn HYDROCODONE-ACETAMINOPHEN 5-500 MG TABS HYDROCODONE- ACETAMINOPHEN Inactive LORTAB 5 5-500 MG TABS 1/2 to 1 tablet by mouth every 4 hours as needed for pain LORTAB 5 5-500 MG TABS HYDROCODONE- ACETAMINOPHEN Inactive LAMISIL 250 MG TAB 1 po qd LAMISIL 250 MG TAB 010309 TERBINAFINE HCL Inactive VENLAFAXINE HCL 37.5 MG TABS 1 po BID VENLAFAXINE HCL 37.5 MG TABS 404371 VENLAFAXINE HCL Inactive CIPRO 500 MG TAB 1 tablet by mouth twice daily CIPRO 500 MG TAB 369640 CIPROFLOXACIN HCL Inactive VENLAFAXINE HCL 75 MG TABS 1 po BID VENLAFAXINE HCL 75 MG TABS 682918 VENLAFAXINE HCL Inactive SIMVASTATIN 40 MG TABS Take one by mouth daily SIMVASTATIN 40 MG TABS 188230 SIMVASTATIN Inactive OMEPRAZOLE 20 MG TBEC 1 PO 30 MIN BEFORE 1ST MEAL OMEPRAZOLE 20 MG TBEC 506901 OMEPRAZOLE Inactive FENOFIBRATE 145 MG TABS 1 po qd FENOFIBRATE 145 MG TABS 312721 FENOFIBRATE Inactive BACTRIM DS 800-160 MG TABS 1 bid x 14 day start 09-28-13 BACTRIM DS 800-160 MG TABS SULFAMETHOXAZOLE-TRIMETHOPRIM Inactive B-12 100 MCG TABS Take one by mouth daily B-12 100 MCG TABS CYANOCOBALAMIN Inactive GABAPENTIN 100 MG CAPS 1 po bid GABAPENTIN 100 MG CAPS 399826 GABAPENTIN Inactive HYDROCODONE-ACETAMINOPHEN 5-325 MG TABS 1 tab by mouth every 6 hours as needed for pain HYDROCODONE-ACETAMINOPHEN 5-325 MG TABS 847521 HYDROCODONE-ACETAMINOPHEN Inactive CIPRO 500 MG TABS 1 bid x 14 days start 09-28-13 CIPRO 500 MG TABS 667938 CIPROFLOXACIN HCL Inactive ALIGN 4 MG CAPS [...] 2 weeks TRIAMCINOLONE ACETONIDE 0.1 % OINT 0762536 TRIAMCINOLONE ACETONIDE Inactive PREDNISONE 20 MG TAB 2 tabs daily for 3 days, 1 tab daily for 3 days, 1/2 tab daily for 2 days PREDNISONE 20 MG TAB 125287 PREDNISONE Inactive PREDNISONE 20 MG TAB 2 tabs daily for 3 days, 1 tab daily for 3 days, 1/2 tab daily for 2 days PREDNISONE 20 MG TAB 307208 PREDNISONE Inactive BACTRIM DS 800-160 MG TABS 1 po BID x 7 days BACTRIM DS 800-160 MG TABS SULFAMETHOXAZOLE-TRIMETHOPRIM Inactive Immunizations Vaccine Administration Date Value Standard Description Seasonal influenza vaccine, injectable, containing preservative, for > 3 years old (Afluria, FluLaval, Fluzone, Fluvirin, Fluarix, Agriflu(>=18 yo)) Fluzone (>3 yrs.) [[id number]] Influenza, seasonal, injectable influenza immunization (Flu Vax) has been administered 02/22/2012 influenza virus vaccine, unspecified formulation Seasonal influenza vaccine, injectable, containing preservative, for > 3 years old (Afluria, FluLaval, Fluzone, Fluvirin, Fluarix, Agriflu(>=18 yo)) Fluzone (>3 yrs.) [[id number]] Influenza, seasonal, injectable Vital Signs Date Name [...] CBC - Chemistry sodium, serum 143 mmol/L 216-434 0228/03/10 potassium, serum 4.9 mmol/L 3.5-5.2 chloride, serum [...] HGBA1C - Chemistry sodium, serum 144 mmol/L 270-094 9150/04/16 potassium, serum 4.2 mmol/L 3.5-5.2 chloride, serum [...] 0.20 mg/dL 0.00-1.00 cholesterol, serum 133 mg/dL 832-148 8700/04/16 triglyceride, serum, fasting 142 mg/dL 30-200 HDL [...] mg/dL Encounters Code Encounter Date Provider Facility CPT-88905 Level 4 Est. Patient 14:27:39 PRECISION CROP MANAGER Tu Landeros MD [facility] CPT-80526 Level 4 Est. Patient 09:45:25 CDT Tu Landeros MD [facility] CPT-54920 Level 4 Est. Patient 09:05:20 PRECISION CROP MANAGER Tu Landeros MD [facility] CPT-44711 Level 4 Est. Patient 14:09:06 CDT Tu Landeros MD [facility] CPT-88410 Level 3 Est. Patient 13:36:54 CDT Tu Landeros MD [facility] CPT-13526 Level 3 Est. Patient 08:59:14 CDT Tu Landeros MD [facility] CPT-60869 Level 3 Est. Patient 13:48:35 CDT Fab Morales DO [facility] CPT-97971 Level 4 Est. Patient 10:05:48 CDT uT Landeros MD [facility] CPT-90038 Level 3 Est. Patient 13:38:42 CDT Marek BANKS [facility] CPT-22881 Level 5 Est. Patient 08:08:39 CDT Jerrica Hopkins TITO [facility] CPT-46228 Level 4 Est. Patient 14:23:38 CDT Tu Landeros MD [facility] CPT-99832 Level 3 Est. Patient 11:44:04 CDT Tu Landeros MD [facility] CPT-09101 Level 3 Est. Patient 11:03:20 PRECISION CROP MANAGER Tu Landeros MD [facility] CPT-16144 Level 3 Est. Patient 11:03:14 PRECISION CROP MANAGER Tu Landeros MD [facility] CPT-07707 Level 3 Est. Patient 12:42:49 CDT Tu Landeros MD [facility] CPT-37714 Level 3 Est. Patient 11:52:06 CDT Tu Landeros MD [facility] CPT-33372 Level 3 Est. Patient 13:58:11 CDT Tu Landeros MD [facility] CPT-94158 Level 3 Est. Patient 17:50:07 CDT Fab Morales DO [facility] CPT-03285 Level 3 Est. Patient 12:06:29 CDT Elvira Cervantes MD, PhD [facility] CPT-37976 Level 3 Est. Patient 15:50:32 CDT Tu Landeros MD [facility] CPT-72281 Level 4 Est. Patient 16:08:29 CDT Tu Landeros MD [facility] CPT-31641 Level 3 Est. Patient 16:04:19 CDT Tu Landeros MD [facility] CPT-67864 Level 3 Est. Patient 11:22:30 PRECISION CROP MANAGER Tu Landeros MD [facility] CPT-25230 Level 4 Est. Patient 16:24:02 PRECISION CROP MANAGER Tu Landeros MD [facility] CPT-68263 Level 3 Est. Patient 17:21:23 PRECISION CROP MANAGER Tu Landeros MD [facility] Procedures Code Procedure Name Date Entry Date Standard Description CPT-JTINJ Asp/Joint Injection 15:51:27 PRECISION CROP MANAGER CPT-OV Office Visit 15:52:02 PRECISION CROP MANAGER CPT-OV Office Visit 15:45:11 CDT CPT-000 Give Zostavax 14:09:06 CDT CPT-57557 Administration single or combination vaccine inc oral 15 :19:04 CDT CPT-93602 Zoster Vaccine (Zostavax) 15:19:04 CDT CPT-21931 Administration single or combination vaccine inc oral 20 :51:03 CDT CPT-88783 Influenza split virus > age 3 20:51:03 CDT CPT-81491 No Charge Offi Visit 14:52:03 CDT CPT-OV Office Visit 14:57:43 CDT CPT-OV Office Visit 15:22:32 CDT CPT-76869 Administration single or combination vaccine inc oral 11 :33:15 CDT CPT-13621 Influenza split virus > age 3 11:33:15 CDT
--- OUTSIDE RECORDS SUMMARY | 2018-04-25 19:33 | XMS REPORT | Clinical Summary ---
Author Author Admin, SACHI Clemons [facility] Address Unknown Phone Unavailable Allergies, [...] MASS OR LUMP 782.2 Resolved 03/15 Tu Lanedros MD Localized superficial swelling, mass, or lump [...] DO Pain in joint involving lower leg HEALTH SCREENING ICD-V70.0 Inactive Elvira Cervantes MD [...] UNSPECIFIED SITE ICD-707.00 Inactive Tu Landeros MD INSOMNIA, PERSISTENT ICD-307.42 Inactive Tu Landeros MD GASTROENTERITIS ICD-558.9 Inactive Tu Landeros MD LOCALIZED SUPERFICIAL SWELLING [...] sugar twice daily dx: 250.00 LANCET DEVICES 53145435952 Active Tu Landeros MD Active TRUEDRAW LANCING DEVICE MISC Test twice a day dx 250.0 LANCET DEVICES 70520323859 Active Tu Landeros MD Active TRUERESULT BLOOD GLUCOSE W/DEVICE KIT test blood sugar twice daily dx 250.00 BLOOD GLUCOSE MONITORING SUPPL 60371644089 Active Tu Landeros MD Active TRUETEST TEST INVITR STRP test blood sugar twice daily. DX 250.0 GLUCOSE BLOOD 61315556286 Active Tu Landeros MD Active EMBRACE BLOOD GLUCOSE TEST STRP test blood sugar twice daily DX 250.0 2014 GLUCOSE BLOOD 56850027985 No Longer Active Tu Landeros MD Active TRUETEST TEST STRP test blood sugar three times daily dx: 250.00 GLUCOSE BLOOD 64092012610 No Longer Active Suze VOGEL Active TRUERESULT BLOOD GLUCOSE W/DEVICE KIT use to test blood sugar tid dx: 250.00 BLOOD GLUCOSE MONITORING SUPPL 37342927029 No Longer Active Suze VOGEL Active ALIGN 4 MG CAPS 1 tid PROBIOTIC PRODUCT 12824828452 No Longer Active Shaun Sy MD Active CIPRO 500 MG TABS 1 bid x 14 days start 09-28-13 CIPROFLOXACIN HCL 97994635609 No Longer Active Shaun Sy MD Active TRAMADOL HCL 50 MG TABS 1-2 tablets every 6 hours as needed for pain TRAMADOL HCL 65212197847 Active Tu Landeros MD Active HYDROCODONE-ACETAMINOPHEN 5-325 MG TABS 1 tab by mouth every 6 hours as needed for pain HYDROCODONE-ACETAMINOPHEN 88430384978 No Longer Active Tu Landeros MD Active OMEPRAZOLE 20 MG CPDR 1 po q a.m. OMEPRAZOLE 16303083764 Active Tu Landeros MD Active GABAPENTIN 100 MG CAPS 1 po bid GABAPENTIN 95564456813 No Longer Active Tu Landeros MD Active B-12 100 MCG TABS Take one by mouth daily CYANOCOBALAMIN 28035467069 No Longer Active Tu Landeros MD Active GABAPENTIN 100 MG CAPS by mouth twice a day GABAPENTIN 01029493160 Active Tu Landeros MD Active BACTRIM DS 800-160 MG TABS 1 bid x 14 day start 09-28-13 SULFAMETHOXAZOLE-TRIMETHOPRIM 41901809585 No Longer Active Tu Landeros MD Active SIMVASTATIN 40 MG TABS 1 tab daily at bedtime SIMVASTATIN 93885964334 Active Tu Landeros MD Active CARVEDILOL 12.5 MG TABS 1 po BID CARVEDILOL 25630142169 Active Tu Landeros MD Active SUPER B COMPLEX/VITAMIN C TABS 1 qd B COMPLEX-C 29468402444 Active JASPREET Perez Active TRILIPIX 135 MG CPDR 1 q hs CHOLINE FENOFIBRATE 20511880298 Active Tu Landeros MD Active FENOFIBRATE 145 MG TABS 1 po qd FENOFIBRATE 99536923449 No Longer Active JASPREET Perez Active OMEPRAZOLE 20 MG TBEC 1 PO 30 MIN BEFORE 1ST MEAL OMEPRAZOLE 34605602088 No Longer Active JASPREET Perez Active SIMVASTATIN 40 MG TABS Take one by mouth daily SIMVASTATIN 40741703072 No Longer Active JASPREET Perez Active VENLAFAXINE HCL 37.5 MG TABS 1 bid VENLAFAXINE HCL 00766681962 Active Tu Landeros MD Active VENLAFAXINE HCL 75 MG TABS 1 po BID VENLAFAXINE HCL 55913723858 No Longer Active JASPREET Perez Active METFORMIN HCL 500 MG TB24 1.5 po BID METFORMIN HCL 50606575622 Active Tu Landeros MD Active CIPRO 500 MG TAB 1 tablet by mouth twice daily CIPROFLOXACIN HCL 65961403021 No Longer Active Tu Landeros MD Active VENLAFAXINE HCL 37.5 MG TABS 1 po BID VENLAFAXINE HCL 77128437344 No Longer Active Suze Nicole RMA Active [employer] STOOL SOFTENER 100 MG CAPS 1 tab daily DOCUSATE SODIUM 49564367253 Active Tu Landeros MD Active LAMISIL 250 MG TAB 1 po qd TERBINAFINE HCL 78654544577 No Longer Active Tu Landeros MD Active LORTAB 5 5-500 MG TABS 1/2 to 1 tablet by mouth every 4 hours as needed for pain HYDROCODONE-ACETAMINOPHEN 88484333377 No Longer Active Tu Landeros MD Active ENALAPRIL MALEATE 20 MG TABS 1.5 po qd ENALAPRIL MALEATE 41347931987 Active Tu Landeros MD Active HYDROCODONE-ACETAMINOPHEN 5-500 MG TABS take one po Q 4-6 hours prn HYDROCODONE-ACETAMINOPHEN 81597784916 No Longer Active Tu Landeros MD Active BACTRIM DS 800-160 MG TABS 1 po BID x 7 days SULFAMETHOXAZOLE-TRIMETHOPRIM 62839191956 No Longer Active Tu Landeros MD Active VENLAFAXINE HCL 75 MG TABS 1 po BID VENLAFAXINE HCL 92548327620 No Longer Active Elvira Cervantes MD PhD Active TRAMADOL HCL 50 MG TABS 1 tablets every 6 hours as needed for pain TRAMADOL HCL 91526066112 No Longer Active Tu Landeros MD Active ACCU-CHEK FASTCLIX LANCETS MISC Use to check bloodsugar three times daily as needed LANCETS 21540065757 No Longer Active Tu Landeros MD Active ACCU-CHEK KEYONA PLUS STRP Use for testing bloodsugars three times daily as needed GLUCOSE BLOOD 96055373013 No Longer Active Tu Landeros MD Active ACCU-CHEK KEYONA PLUS W/DEVICE KIT Use for testing bloodsugars three times daily as needed BLOOD GLUCOSE MONITORING SUPPL 03726340196 No Longer Active Tu Landeros MD Active SPIRONOLACTONE 25 MG TAB 0.5 tablet by mouth daily SPIRONOLACTONE 52626000026 No Longer Active Tu Landeros MD Active ALPRAZOLAM 0.5 MG TABS 1 tab every 6hrs as needed ALPRAZOLAM 74269429063 No Longer Active Tu Landeros MD Active AUGMENTIN 875-125 MG TAB 1 tab by mouth twice daily with food AMOXICILLIN-POT CLAVULANATE 81387241152 No Longer Active Tu Landeros MD Active PREDNISONE 20 MG TAB 2 tabs daily for 3 days, 1 tab daily for 3 days, 1/2 tab daily for 2 days PREDNISONE 16485485859 No Longer Active Tu Landeros MD Active XANAX 0.5 MG TABS 1 tablet every 6 hrs prn ALPRAZOLAM 43794792821 No Longer Active Tu Landeros MD Active PREDNISONE 20 MG TAB 2 tabs daily for 3 days, 1 tab daily for 3 days, 1/2 tab daily for 2 days PREDNISONE 13539153029 No Longer Active Tu Landeros MD Active TRIAMCINOLONE ACETONIDE 0.1 % OINT Apply to affected areas TID for up to 2 weeks TRIAMCINOLONE ACETONIDE 50094922084 No Longer Active Tu Landeros MD Active LORTAB 5 5-500 MG TABS 1/2 to 1 tablet by mouth every 4 hours as needed for pain HYDROCODONE-ACETAMINOPHEN 81315194990 No Longer Active Tu Landeros MD Active MULTIVITAMINS TABS Take one by mouth daily MULTIPLE VITAMIN 70332398597 No Longer Active Tu Landeros MD Active MELATONIN 5 MG TABS Take one by mouth daily MELATONIN 81755115132 No Longer Active Tu Landeros MD Active SOMA 350 MG TAB 1 po q 6 hours prn spasm CARISOPRODOL 40943035727 No Longer Active Tu Landeros MD Active MECLIZINE HCL 25 MG CHEW TAB 1 four times a day as needed for dizziness 08/05 MECLIZINE HCL 66644324123 No Longer Active Fab Morales DO Active ANGEL BREEZE 2 TEST DISK test tid prn GLUCOSE BLOOD 62405410614 No Longer Active Negra Scott RN Active DICLOFENAC SODIUM 50 MG TBEC 1 tablet by mouth three times a day as needed DICLOFENAC SODIUM 48223753184 Active Tu Landeros MD Active REGLAN 10 MG TAB 1 po TID PRN [place]ausea METOCLOPRAMIDE HCL 65115275396 No Longer Active Tu Landeros MD Active METFORMIN HCL 500 MG TABS 1 PO BID METFORMIN HCL 99810284111 No Longer Active Tu Landeros MD Active AMBIEN 10 MG TAB 1 tab by mouth at bedtime as needed for sleep ZOLPIDEM TARTRATE 44652272841 No Longer Active Tu Landeros MD Active FLUOXETINE HCL 40 MG CAPS 1 po q day FLUOXETINE HCL 29742618983 No Longer Active Mayra La Grange Active FISH OIL 1000 MG CAPS Take one by mouth daily OMEGA-3 FATTY ACIDS 20374510341 Active Tu Landeros MD Active GLUCOSAMINE 500 MG TABS Take 2 tab po qd GLUCOSAMINE 63952074888 Active Tu Landeros MD Active TRILIPIX 135 MG CPDR 1 po qd CHOLINE FENOFIBRATE 69822850400 No Longer Active Tu Landeros MD Active ASPIRIN 81 MG CHEW TAB 1 tablet by mouth daily ASPIRIN 77824931605 Active uT Landeros MD Active FUROSEMIDE 40 MG TAB 1 tablet by mouth daily FUROSEMIDE 66679107365 Active Tu Landeros MD Active REQUIP 2 MG TABS Take one tablet at bedtime prn ROPINIROLE HCL 83574007404 Active Tu Landeros MD Active KLOR-CON 10 10 MEQ CR-TABS TAKE 2 TABS DAILY POTASSIUM CHLORIDE 57026091569 Active Tu Landeros MD Active AMBIEN 10 MG TAB 1 tab by mouth at bedtime as needed for sleep AMBIEN 10 MG TAB 985857 ZOLPIDEM TARTRATE Inactive METFORMIN HCL 500 MG TABS 1 PO BID METFORMIN HCL 500 MG TABS 122980 METFORMIN HCL Inactive REGLAN 10 MG TAB 1 po TID PRN Nausea REGLAN 10 MG TAB 791324 METOCLOPRAMIDE HCL Inactive MECLIZINE HCL 25 MG CHEW TAB 1 four times a day as needed for dizziness 08/05 MECLIZINE HCL 25 MG CHEW TAB 565711 MECLIZINE HCL Inactive SOMA 350 MG TAB 1 po q 6 hours prn spasm SOMA 350 MG TAB 987514 CARISOPRODOL Inactive MELATONIN 5 MG TABS Take one by mouth daily MELATONIN 5 MG TABS 625036 MELATONIN Inactive MULTIVITAMINS TABS Take one by mouth daily MULTIVITAMINS TABS MULTIPLE VITAMIN Inactive LORTAB 5 5-500 MG TABS 1/2 to 1 tablet by mouth every 4 hours as needed for pain LORTAB 5 5-500 MG TABS HYDROCODONE- ACETAMINOPHEN Inactive XANAX 0.5 MG TABS 1 tablet every 6 hrs prn XANAX 0.5 MG TABS 341259 ALPRAZOLAM Inactive AUGMENTIN 875-125 MG TAB 1 tab by mouth twice daily with food AUGMENTIN 875-125 MG TAB 356845 AMOXICILLIN-POT CLAVULANATE Inactive ALPRAZOLAM 0.5 MG TABS 1 tab every 6hrs as needed ALPRAZOLAM 0.5 MG TABS 309541 ALPRAZOLAM Inactive SPIRONOLACTONE 25 MG TAB 0.5 tablet by mouth daily SPIRONOLACTONE 25 MG TAB 439464 SPIRONOLACTONE Inactive ACCU-CHEK KEYONA PLUS W/DEVICE KIT Use for testing bloodsugars three times daily as needed ACCU-CHEK KEYONA PLUS W/DEVICE KIT BLOOD GLUCOSE MONITORING SUPPL Inactive ACCU-CHEK KEYONA PLUS STRP Use for testing bloodsugars three times daily as needed ACCU-CHEK KEYONA PLUS STRP GLUCOSE BLOOD Inactive ACCU-CHEK FASTCLIX LANCETS MISC Use to check bloodsugar three times daily as needed ACCU-CHEK FASTCLIX LANCETS MISC 68696725146 LANCETS Inactive TRAMADOL HCL 50 MG TABS 1 tablets every 6 hours as needed for pain TRAMADOL HCL 50 MG TABS 729554 TRAMADOL HCL Inactive VENLAFAXINE HCL 75 MG TABS 1 po BID VENLAFAXINE HCL 75 MG TABS 555581 VENLAFAXINE HCL Inactive HYDROCODONE-ACETAMINOPHEN 5-500 MG TABS take one po Q 4-6 hours prn HYDROCODONE-ACETAMINOPHEN 5-500 MG TABS HYDROCODONE- ACETAMINOPHEN Inactive LORTAB 5 5-500 MG TABS 1/2 to 1 tablet by mouth every 4 hours as needed for pain LORTAB 5 5-500 MG TABS HYDROCODONE- ACETAMINOPHEN Inactive LAMISIL 250 MG TAB 1 po qd LAMISIL 250 MG TAB 028215 TERBINAFINE HCL Inactive VENLAFAXINE HCL 37.5 MG TABS 1 po BID VENLAFAXINE HCL 37.5 MG TABS 137363 VENLAFAXINE HCL Inactive CIPRO 500 MG TAB 1 tablet by mouth twice daily CIPRO 500 MG TAB 840079 CIPROFLOXACIN HCL Inactive VENLAFAXINE HCL 75 MG TABS 1 po BID VENLAFAXINE HCL 75 MG TABS 802144 VENLAFAXINE HCL Inactive SIMVASTATIN 40 MG TABS Take one by mouth daily SIMVASTATIN 40 MG TABS 446162 SIMVASTATIN Inactive OMEPRAZOLE 20 MG TBEC 1 PO 30 MIN BEFORE 1ST MEAL OMEPRAZOLE 20 MG TBEC 841329 OMEPRAZOLE Inactive FENOFIBRATE 145 MG TABS 1 po qd FENOFIBRATE 145 MG TABS 880758 FENOFIBRATE Inactive BACTRIM DS 800-160 MG TABS 1 bid x 14 day start 09-28-13 BACTRIM DS 800-160 MG TABS SULFAMETHOXAZOLE-TRIMETHOPRIM Inactive B-12 100 MCG TABS Take one by mouth daily B-12 100 MCG TABS CYANOCOBALAMIN Inactive GABAPENTIN 100 MG CAPS 1 po bid GABAPENTIN 100 MG CAPS 887821 GABAPENTIN Inactive HYDROCODONE-ACETAMINOPHEN 5-325 MG TABS 1 tab by mouth every 6 hours as needed for pain HYDROCODONE-ACETAMINOPHEN 5-325 MG TABS 499646 HYDROCODONE-ACETAMINOPHEN Inactive CIPRO 500 MG TABS 1 bid x 14 days start 09-28-13 CIPRO 500 MG TABS 245053 CIPROFLOXACIN HCL Inactive ALIGN 4 MG CAPS [...] 2 weeks TRIAMCINOLONE ACETONIDE 0.1 % OINT 7948462 TRIAMCINOLONE ACETONIDE Inactive PREDNISONE 20 MG TAB 2 tabs daily for 3 days, 1 tab daily for 3 days, 1/2 tab daily for 2 days PREDNISONE 20 MG TAB 689570 PREDNISONE Inactive PREDNISONE 20 MG TAB 2 tabs daily for 3 days, 1 tab daily for 3 days, 1/2 tab daily for 2 days PREDNISONE 20 MG TAB 021231 PREDNISONE Inactive BACTRIM DS 800-160 MG TABS 1 po BID x 7 days BACTRIM DS 800-160 MG TABS SULFAMETHOXAZOLE-TRIMETHOPRIM Inactive Immunizations Vaccine Administration Date Value Standard Description Seasonal influenza vaccine, injectable, containing preservative, for > 3 years old (Afluria, FluLaval, Fluzone, Fluvirin, Fluarix, Agriflu(>=18 yo)) Fluzone (>3 yrs.) [[id number]] Influenza, seasonal, injectable influenza immunization (Flu Vax) has been administered 02/22/2012 influenza virus vaccine, unspecified formulation Seasonal influenza vaccine, injectable, containing preservative, for > 3 years old (Afluria, FluLaval, Fluzone, Fluvirin, Fluarix, Agriflu(>=18 yo)) Fluzone (>3 yrs.) [[id number]] Influenza, seasonal, injectable Vital Signs Date Name [...] pressure, diastolic - 8462-4 85 mm[Hg] BP ca blood pressure, systolic - 8480-6 164 mm[Hg] [...] CBC - Chemistry sodium, serum 143 mmol/L 603-495 6221/03/10 potassium, serum 4.9 mmol/L 3.5-5.2 chloride, serum [...] Metabolic Panel, Lipid Panel, HGBA1C - Chemistry urea nitrogen, blood 22 mg/dL 7-18 creatinine, serum 1.10 mg/dL 0.60-1.30 alanine aminotransferase (SGPT), serum 21 U/L 12-78 aspartate aminotransferase (SGOT), serum 18 U/L 15-37 alkaline phosphatase, serum 84 U/L 50-136 calcium, serum 8.9 mg/dL 8.5-10.1 bilirubin, serum, total 0.20 mg/dL 0.00-1.00 cholesterol, serum 133 mg/dL 959-324 3904/04/16 triglyceride, serum, fasting 142 mg/dL 30-200 HDL cholesterol, serum 38 mg/dL 32-96 LDL cholesterol, serum 67 mg/dL 0-130 hemoglobin A1C, blood, as % of total hemoglobin 7.1 % 4.3-6.0 potassium, serum 4.2 mmol/L 3.5-5.2 sodium, serum 144 mmol/L 917-062 1375/04/16 blood glucose 113 mg/dL 65-110 carbon dioxide, venous blood 29.9 mmol/L 21.0-32.0 chloride, serum 106 mmol/L 98-107 Lab Report: HGBA1C - Chemistry [...] mg/dL Encounters Code Encounter Date Provider Facility CPT-48620 Level 4 Est. Patient 14:27:39 CAD DEVELOPER Tu Landeros MD [facility] CPT-11867 Level 4 Est. Patient 09:45:25 CDT Tu Landeros MD [facility] CPT-39335 Level 4 Est. Patient 09:05:20 CAD DEVELOPER Tu Landeros MD [facility] CPT-25944 Level 4 Est. Patient 14:09:06 CDT Tu Landeros MD [facility] CPT-15534 Level 3 Est. Patient 13:36:54 CDT Tu Landeros MD [facility] CPT-60188 Level 3 Est. Patient 08:59:14 CDT Tu Landeros MD [facility] CPT-87458 Level 3 Est. Patient 13:48:35 CDT Fab Morales DO [facility] CPT-84999 Level 4 Est. Patient 10:05:48 CDT Tu Landeros MD [facility] CPT-52456 Level 3 Est. Patient 13:38:42 CDT Marek BANKS [facility] CPT-24649 Level 5 Est. Patient 08:08:39 CDT Jerrica Hopkins TITO [facility] CPT-79050 Level 4 Est. Patient 14:23:38 CDT Tu Landeros MD [facility] CPT-18924 Level 3 Est. Patient 11:44:04 CDT Tu Landeros MD [facility] CPT-64495 Level 3 Est. Patient 11:03:20 CAD DEVELOPER Tu Landeros MD [facility] CPT-83709 Level 3 Est. Patient 11:03:14 CAD DEVELOPER Tu Landeros MD [facility] CPT-87472 Level 3 Est. Patient 12:42:49 CDT Tu Landeros MD [facility] CPT-63670 Level 3 Est. Patient 11:52:06 CDT Tu Landeros MD [facility] CPT-83452 Level 3 Est. Patient 13:58:11 CDT Tu Landeros MD [facility] CPT-60051 Level 3 Est. Patient 17:50:07 CDT Fab Morales DO [facility] CPT-77480 Level 3 Est. Patient 12:06:29 CDT Elvira Cervantes MD, PhD [facility] CPT-51104 Level 3 Est. Patient 15:50:32 CDT Tu Landeros MD [facility] CPT-85321 Level 4 Est. Patient 16:08:29 CDT Tu Landeros MD [facility] CPT-60768 Level 3 Est. Patient 16:04:19 CDT Tu Landeros MD [facility] CPT-30865 Level 3 Est. Patient 11:22:30 CAD DEVELOPER Tu Landeros MD [facility] CPT-29375 Level 4 Est. Patient 16:24:02 CAD DEVELOPER Tu Landeros MD [facility] CPT-28232 Level 3 Est. Patient 17:21:23 CAD DEVELOPER Tu Landeros MD [facility] Procedures Code Procedure Name Date Entry Date Standard Description CPT-JTINJ Asp/Joint Injection 15:51:27 CAD DEVELOPER CPT-OV Office Visit 15:52:02 CAD DEVELOPER CPT-OV Office Visit 15:45:11 CDT CPT-000 Give Zostavax 14:09:06 CDT CPT-69299 Administration single or combination vaccine inc oral 15 :19:04 CDT CPT-62449 Zoster Vaccine (Zostavax) 15:19:04 CDT CPT-94997 Administration single or combination vaccine inc oral 20 :51:03 CDT CPT-19965 Influenza split virus > age 3 20:51:03 CDT CPT-84301 No Charge Offi Visit 14:52:03 CDT CPT-OV Office Visit 14:57:43 CDT CPT-OV Office Visit 15:22:32 CDT CPT-70298 Administration single or combination vaccine inc oral 11 :33:15 CDT CPT-51320 Influenza split virus > age 3 11:33:15 CDT
--- OUTSIDE RECORDS SUMMARY | 2018-04-25 19:34 | XMS REPORT | Clinical Summary ---
Author Author Admin, SACHI Clemons [facility] Address Unknown Phone Unavailable Allergies, Adverse [...] sugar twice daily dx: 250.00 LANCET DEVICES 18448229253 Active Tu Landeros MD Active TRUEDRAW LANCING DEVICE MISC Test twice a day dx 250.0 LANCET DEVICES 96499264959 Active Tu Landeros MD Active TRUERESULT BLOOD GLUCOSE W/DEVICE KIT test blood sugar twice daily dx 250.00 BLOOD GLUCOSE MONITORING SUPPL 77551219920 Active Tu Landeros MD Active TRUETEST TEST INVITR STRP test blood sugar twice daily. DX 250.0 GLUCOSE BLOOD 80637270725 Active Tu Landeros MD Active EMBRACE BLOOD GLUCOSE TEST STRP test blood sugar twice daily DX 250.0 2014 GLUCOSE BLOOD 18632622338 No Longer Active Tu Landeros MD Active TRUETEST TEST STRP test blood sugar three times daily dx: 250.00 GLUCOSE BLOOD 86752078513 No Longer Active Suzebianca VOGEL Active TRUERESULT BLOOD GLUCOSE W/DEVICE KIT use to test blood sugar tid dx: 250.00 BLOOD GLUCOSE MONITORING SUPPL 51280268479 No Longer Active Suze Corey RMA Active ALIGN 4 MG CAPS 1 tid PROBIOTIC PRODUCT 77782102179 No Longer Active Shaun Sy MD Active CIPRO 500 MG TABS 1 bid x 14 days start 5-01-04 CIPROFLOXACIN HCL 66522841493 No Longer Active Shaun Sy MD Active TRAMADOL HCL 50 MG TABS 1-2 tablets every 6 hours as needed for pain TRAMADOL HCL 07618306011 Active Tu Landeros MD Active HYDROCODONE-ACETAMINOPHEN 5-325 MG TABS 1 tab by mouth every 6 hours as needed for pain HYDROCODONE-ACETAMINOPHEN 37682451627 No Longer Active Tu Landeros MD Active OMEPRAZOLE 20 MG CPDR 1 po q a.m. OMEPRAZOLE 19931534770 Active Tu Landeros MD Active GABAPENTIN 100 MG CAPS 1 po bid GABAPENTIN 37655307250 No Longer Active Tu Landeros MD Active B-12 100 MCG TABS Take one by mouth daily CYANOCOBALAMIN 60032302787 No Longer Active Tu Landeros MD Active GABAPENTIN 100 MG CAPS by mouth twice a day GABAPENTIN 72814848204 Active Tu Landeros MD Active BACTRIM DS 800-160 MG TABS 1 bid x 14 day start 09-28-13 SULFAMETHOXAZOLE-TRIMETHOPRIM 52269668869 No Longer Active Tu Landeros MD Active SIMVASTATIN 40 MG TABS 1 tab daily at bedtime SIMVASTATIN 91931214396 Active Tu Landeros MD Active CARVEDILOL 12.5 MG TABS 1 po BID CARVEDILOL 79473465889 Active Tu Landeros MD Active SUPER B COMPLEX/VITAMIN C TABS 1 qd B COMPLEX-C 77221332375 Active JASPREET Perez Active TRILIPIX 135 MG CPDR 1 q hs CHOLINE FENOFIBRATE 31850209520 Active Tu Landeros MD Active FENOFIBRATE 145 MG TABS 1 po qd FENOFIBRATE 12759217136 No Longer Active JASPREET Perez Active OMEPRAZOLE 20 MG TBEC 1 PO 30 MIN BEFORE 1ST MEAL OMEPRAZOLE 36816399384 No Longer Active JASPREET Perez Active SIMVASTATIN 40 MG TABS Take one by mouth daily SIMVASTATIN 55427360825 No Longer Active JASPREET Perez Active VENLAFAXINE HCL 37.5 MG TABS 1 bid VENLAFAXINE HCL 16172292624 Active Tu Landeros MD Active VENLAFAXINE HCL 75 MG TABS 1 po BID VENLAFAXINE HCL 69401684349 No Longer Active JASPREET Perez Active METFORMIN HCL 500 MG TB24 1.5 po BID METFORMIN HCL 92784950812 Active Tu Landeros MD Active CIPRO 500 MG TAB 1 tablet by mouth twice daily CIPROFLOXACIN HCL 34353971222 No Longer Active Tu Landeros MD Active VENLAFAXINE HCL 37.5 MG TABS 1 po BID VENLAFAXINE HCL 77566192762 No Longer Active Suzebianca Nicole RMA Active CVS STOOL SOFTENER 100 MG CAPS 1 tab daily DOCUSATE SODIUM 39832845422 Active Tu Landeros MD Active LAMISIL 250 MG TAB 1 po qd TERBINAFINE HCL 60393270008 No Longer Active Tu Landeros MD Active LORTAB 5 5-500 MG TABS 1/2 to 1 tablet by mouth every 4 hours as needed for pain HYDROCODONE-ACETAMINOPHEN 24373313732 No Longer Active Tu Landeros MD Active ENALAPRIL MALEATE 20 MG TABS 1.5 po qd ENALAPRIL MALEATE 02602736177 Active Tu Landeros MD Active HYDROCODONE-ACETAMINOPHEN 5-500 MG TABS take one po Q 4-6 hours prn HYDROCODONE-ACETAMINOPHEN 02778909993 No Longer Active Tu Landeros MD Active BACTRIM DS 800-160 MG TABS 1 po BID x 7 days SULFAMETHOXAZOLE-TRIMETHOPRIM 80096212380 No Longer Active Tu Landeros MD Active VENLAFAXINE HCL 75 MG TABS 1 po BID VENLAFAXINE HCL 44651232147 No Longer Active Elvira Cervantes MD PhD Active TRAMADOL HCL 50 MG TABS 1 tablets every 6 hours as needed for pain TRAMADOL HCL 32785775544 No Longer Active Tu Landeros MD Active ACCU-CHEK FASTCLIX LANCETS MISC Use to check bloodsugar three times daily as needed LANCETS 66703372070 No Longer Active Tu Landeros MD Active ACCU-CHEK KEYONA PLUS STRP Use for testing bloodsugars three times daily as needed GLUCOSE BLOOD 86053860644 No Longer Active uT Landeros MD Active ACCU-CHEK KEYONA PLUS W/DEVICE KIT Use for testing bloodsugars three times daily as needed BLOOD GLUCOSE MONITORING SUPPL 09328419365 No Longer Active Tu Landeros MD Active SPIRONOLACTONE 25 MG TAB 0.5 tablet by mouth daily SPIRONOLACTONE 61423323755 No Longer Active Tu Landeros MD Active ALPRAZOLAM 0.5 MG TABS 1 tab every 6hrs as needed ALPRAZOLAM 58496846290 No Longer Active Tu Landeros MD Active AUGMENTIN 875-125 MG TAB 1 tab by mouth twice daily with food AMOXICILLIN-POT CLAVULANATE 22630232517 No Longer Active Tu Landeros MD Active PREDNISONE 20 MG TAB 2 tabs daily for 3 days, 1 tab daily for 3 days, 1/2 tab daily for 2 days PREDNISONE 56442322370 No Longer Active Tu Landeros MD Active XANAX 0.5 MG TABS 1 tablet every 6 hrs prn ALPRAZOLAM 34061653361 No Longer Active Tu Landeros MD Active PREDNISONE 20 MG TAB 2 tabs daily for 3 days, 1 tab daily for 3 days, 1/2 tab daily for 2 days PREDNISONE 85477613923 No Longer Active Tu Landeros MD Active TRIAMCINOLONE ACETONIDE 0.1 % OINT Apply to affected areas TID for up to 2 weeks TRIAMCINOLONE ACETONIDE 35509769280 No Longer Active Tu Landeros MD Active LORTAB 5 5-500 MG TABS 1/2 to 1 tablet by mouth every 4 hours as needed for pain HYDROCODONE-ACETAMINOPHEN 16426125243 No Longer Active Tu Landeros MD Active MULTIVITAMINS TABS Take one by mouth daily MULTIPLE VITAMIN 16389143799 No Longer Active Tu Landeros MD Active MELATONIN 5 MG TABS Take one by mouth daily MELATONIN 05397788984 No Longer Active Tu Landeros MD Active SOMA 350 MG TAB 1 po q 6 hours prn spasm CARISOPRODOL 07600314487 No Longer Active Tu Landeros MD Active MECLIZINE HCL 25 MG CHEW TAB 1 four times a day as needed for dizziness 08/05 MECLIZINE HCL 11688373865 No Longer Active Fab Morales DO Active ANGEL BREEZE 2 TEST DISK test tid prn GLUCOSE BLOOD 05816867698 No Longer Active Negra Scott RN Active DICLOFENAC SODIUM 50 MG TBEC 1 tablet by mouth three times a day as needed DICLOFENAC SODIUM 56102031451 Active Tu Landeros MD Active REGLAN 10 MG TAB 1 po TID PRN [place] METOCLOPRAMIDE HCL 91564819089 No Longer Active Tu Landeros MD Active METFORMIN HCL 500 MG TABS 1 PO BID METFORMIN HCL 75563953573 No Longer Active Tu Landeros MD Active AMBIEN 10 MG TAB 1 tab by mouth at bedtime as needed for sleep ZOLPIDEM TARTRATE 82183460300 No Longer Active Tu Landeros MD Active FLUOXETINE HCL 40 MG CAPS 1 po q day FLUOXETINE HCL 39487009106 No Longer Active Mayra Hurley Active FISH OIL 1000 MG CAPS Take one by mouth daily OMEGA-3 FATTY ACIDS 87616060513 Active Tu Landeros MD Active GLUCOSAMINE 500 MG TABS Take 2 tab po qd GLUCOSAMINE 46999183133 Active Tu Landeros MD Active TRILIPIX 135 MG CPDR 1 po qd CHOLINE FENOFIBRATE 66975913830 No Longer Active Tu Landeros MD Active ASPIRIN 81 MG CHEW TAB 1 tablet by mouth daily ASPIRIN 21761616602 Active Tu Landeros MD Active FUROSEMIDE 40 MG TAB 1 tablet by mouth daily FUROSEMIDE 34288184477 Active Tu Landeros MD Active REQUIP 2 MG TABS Take one tablet at bedtime prn ROPINIROLE HCL 14649996141 Active Tu Landeros MD Active KLOR-CON 10 10 MEQ CR-TABS TAKE 2 TABS DAILY POTASSIUM CHLORIDE 76161397558 Active Tu Landeros MD Active AMBIEN 10 MG TAB 1 tab by mouth at bedtime as needed for sleep AMBIEN 10 MG TAB 633917 ZOLPIDEM TARTRATE Inactive METFORMIN HCL 500 MG TABS 1 PO BID METFORMIN HCL 500 MG TABS 038056 METFORMIN HCL Inactive REGLAN 10 MG TAB 1 po TID PRN Nausea REGLAN 10 MG TAB 771500 METOCLOPRAMIDE HCL Inactive MECLIZINE HCL 25 MG CHEW TAB 1 four times a day as needed for dizziness 08/05 MECLIZINE HCL 25 MG CHEW TAB 416748 MECLIZINE HCL Inactive SOMA 350 MG TAB 1 po q 6 hours prn spasm SOMA 350 MG TAB 433948 CARISOPRODOL Inactive MELATONIN 5 MG TABS Take one by mouth daily MELATONIN 5 MG TABS 293871 MELATONIN Inactive MULTIVITAMINS TABS Take one by mouth daily MULTIVITAMINS TABS MULTIPLE VITAMIN Inactive LORTAB 5 5-500 MG TABS 1/2 to 1 tablet by mouth every 4 hours as needed for pain LORTAB 5 5-500 MG TABS HYDROCODONE- ACETAMINOPHEN Inactive XANAX 0.5 MG TABS 1 tablet every 6 hrs prn XANAX 0.5 MG TABS 364748 ALPRAZOLAM Inactive AUGMENTIN 875-125 MG TAB 1 tab by mouth twice daily with food AUGMENTIN 875-125 MG TAB 901633 AMOXICILLIN-POT CLAVULANATE Inactive ALPRAZOLAM 0.5 MG TABS 1 tab every 6hrs as needed ALPRAZOLAM 0.5 MG TABS 961466 ALPRAZOLAM Inactive SPIRONOLACTONE 25 MG TAB 0.5 tablet by mouth daily SPIRONOLACTONE 25 MG TAB 670536 SPIRONOLACTONE Inactive ACCU-CHEK KEYONA PLUS W/DEVICE KIT Use for testing bloodsugars three times daily as needed ACCU-CHEK KEYONA PLUS W/DEVICE KIT BLOOD GLUCOSE MONITORING SUPPL Inactive ACCU-CHEK KEYONA PLUS STRP Use for testing bloodsugars three times daily as needed ACCU-CHEK KEYONA PLUS STRP GLUCOSE BLOOD Inactive ACCU-CHEK FASTCLIX LANCETS MISC Use to check bloodsugar three times daily as needed ACCU-CHEK FASTCLIX LANCETS MISC 99660675659 LANCETS Inactive TRAMADOL HCL 50 MG TABS 1 tablets every 6 hours as needed for pain TRAMADOL HCL 50 MG TABS 014166 TRAMADOL HCL Inactive VENLAFAXINE HCL 75 MG TABS 1 po BID VENLAFAXINE HCL 75 MG TABS 468598 VENLAFAXINE HCL Inactive HYDROCODONE-ACETAMINOPHEN 5-500 MG TABS take one po Q 4-6 hours prn HYDROCODONE-ACETAMINOPHEN 5-500 MG TABS HYDROCODONE- ACETAMINOPHEN Inactive LORTAB 5 5-500 MG TABS 1/2 to 1 tablet by mouth every 4 hours as needed for pain LORTAB 5 5-500 MG TABS HYDROCODONE- ACETAMINOPHEN Inactive LAMISIL 250 MG TAB 1 po qd LAMISIL 250 MG TAB 498017 TERBINAFINE HCL Inactive VENLAFAXINE HCL 37.5 MG TABS 1 po BID VENLAFAXINE HCL 37.5 MG TABS 924032 VENLAFAXINE HCL Inactive CIPRO 500 MG TAB 1 tablet by mouth twice daily CIPRO 500 MG TAB 242969 CIPROFLOXACIN HCL Inactive VENLAFAXINE HCL 75 MG TABS 1 po BID VENLAFAXINE HCL 75 MG TABS 114994 VENLAFAXINE HCL Inactive SIMVASTATIN 40 MG TABS Take one by mouth daily SIMVASTATIN 40 MG TABS 459099 SIMVASTATIN Inactive OMEPRAZOLE 20 MG TBEC 1 PO 30 MIN BEFORE 1ST MEAL OMEPRAZOLE 20 MG TBEC 306980 OMEPRAZOLE Inactive FENOFIBRATE 145 MG TABS 1 po qd FENOFIBRATE 145 MG TABS 564214 FENOFIBRATE Inactive BACTRIM DS 800-160 MG TABS 1 bid x 14 day start 09-28-13 BACTRIM DS 800-160 MG TABS SULFAMETHOXAZOLE-TRIMETHOPRIM Inactive B-12 100 MCG TABS Take one by mouth daily B-12 100 MCG TABS CYANOCOBALAMIN Inactive GABAPENTIN 100 MG CAPS 1 po bid GABAPENTIN 100 MG CAPS 910866 GABAPENTIN Inactive HYDROCODONE-ACETAMINOPHEN 5-325 MG TABS 1 tab by mouth every 6 hours as needed for pain HYDROCODONE-ACETAMINOPHEN 5-325 MG TABS 899808 HYDROCODONE-ACETAMINOPHEN Inactive CIPRO 500 MG TABS 1 bid x 14 days start 09-28-13 CIPRO 500 MG TABS 371174 CIPROFLOXACIN HCL Inactive ALIGN 4 MG CAPS [...] 2 weeks TRIAMCINOLONE ACETONIDE 0.1 % OINT 0531259 TRIAMCINOLONE ACETONIDE Inactive PREDNISONE 20 MG TAB 2 tabs daily for 3 days, 1 tab daily for 3 days, 1/2 tab daily for 2 days PREDNISONE 20 MG TAB 144761 PREDNISONE Inactive PREDNISONE 20 MG TAB 2 tabs daily for 3 days, 1 tab daily for 3 days, 1/2 tab daily for 2 days PREDNISONE 20 MG TAB 692579 PREDNISONE Inactive BACTRIM DS 800-160 MG TABS 1 po BID x 7 days BACTRIM DS 800-160 MG TABS SULFAMETHOXAZOLE-TRIMETHOPRIM Inactive Immunizations Vaccine Administration Date Value Standard Description Seasonal influenza vaccine, injectable, containing preservative, for > 3 years old (Afluria, FluLaval, Fluzone, Fluvirin, Fluarix, Agriflu(>=18 yo)) Fluzone (>3 yrs.) [[id number]] Influenza, seasonal, injectable influenza immunization (Flu Vax) has been administered 02/22/2012 influenza virus vaccine, unspecified formulation Seasonal influenza vaccine, injectable, containing preservative, for > 3 years old (Afluria, FluLaval, Fluzone, Fluvirin, Fluarix, Agriflu(>=18 yo)) Fluzone (>3 yrs.) [[id number]] Influenza, seasonal, injectable Vital Signs Date Name [...] CBC - Chemistry sodium, serum 143 mmol/L 645-934 6335/03/10 potassium, serum 4.9 mmol/L 3.5-5.2 chloride, serum [...] HGBA1C - Chemistry sodium, serum 144 mmol/L 607-923 0323/04/16 potassium, serum 4.2 mmol/L 3.5-5.2 chloride, serum [...] 0.20 mg/dL 0.00-1.00 cholesterol, serum 133 mg/dL 324-214 6460/04/16 triglyceride, serum, fasting 142 mg/dL 30-200 HDL [...] mg/dL Encounters Code Encounter Date Provider Facility CPT-36163 Level 4 Est. Patient 14:38:57 CDT Tu Landeros MD [facility] CPT-89685 Level 4 Est. Patient 14:27:39 DENTAL INSTRUMENT MAKER Tu Landeros MD [facility] CPT-36977 Level 4 Est. Patient 09:45:25 CDT Tu Landeros MD [facility] CPT-38918 Level 4 Est. Patient 09:05:20 DENTAL INSTRUMENT MAKER Tu Landeros MD [facility] CPT-77621 Level 4 Est. Patient 14:09:06 CDT Tu Landeros MD [facility] CPT-00370 Level 3 Est. Patient 13:36:54 CDT Tu Landeros MD [facility] CPT-58518 Level 3 Est. Patient 08:59:14 CDT Tu Landeros MD [facility] CPT-32276 Level 3 Est. Patient 13:48:35 CDT Fab Morales DO [facility] CPT-66642 Level 4 Est. Patient 10:05:48 CDT Tu Landeros MD [facility] CPT-13774 Level 3 Est. Patient 13:38:42 CDT Marek BANKS [facility] CPT-38346 Level 5 Est. Patient 08:08:39 CDT Jerrica FRANCIS [facility] CPT-47634 Level 4 Est. Patient 14:23:38 CDT Tu Landeros MD [facility] CPT-69892 Level 3 Est. Patient 11:44:04 CDT Tu Landeros MD [facility] CPT-42256 Level 3 Est. Patient 11:03:20 DENTAL INSTRUMENT MAKER Tu Landeros MD [facility] CPT-12194 Level 3 Est. Patient 11:03:14 DENTAL INSTRUMENT MAKER Tu Landeros MD [facility] CPT-17604 Level 3 Est. Patient 12:42:49 CDT Tu Landeros MD [facility] CPT-39431 Level 3 Est. Patient 11:52:06 CDT Tu Landeros MD [facility] CPT-37268 Level 3 Est. Patient 13:58:11 CDT Tu Landeros MD [facility] CPT-34030 Level 3 Est. Patient 17:50:07 CDT Fab Morales DO [facility] CPT-72121 Level 3 Est. Patient 12:06:29 CDT Elvira Cervantes MD, PhD [facility] CPT-86777 Level 3 Est. Patient 15:50:32 CDT Tu Landeros MD [facility] CPT-76491 Level 4 Est. Patient 16:08:29 CDT Tu Landeros MD [facility] CPT-65038 Level 3 Est. Patient 16:04:19 CDT Tu Landeros MD [facility] CPT-16753 Level 3 Est. Patient 11:22:30 DENTAL INSTRUMENT MAKER Tu Landeros MD [facility] CPT-07468 Level 4 Est. Patient 16:24:02 DENTAL INSTRUMENT MAKER Tu Landeros MD [facility] CPT-10986 Level 3 Est. Patient 17:21:23 DENTAL INSTRUMENT MAKER Tu Landeros MD [facility] Procedures Code Procedure Name Date Entry Date Standard Description [id number]-[id number] Asp/Joint Injection 15:51:27 DENTAL INSTRUMENT MAKER CPT-OV Office Visit 15:52:02 DENTAL INSTRUMENT MAKER CPT-OV Office Visit 15:45:11 CDT CPT-000 Give Zostavax 14:09:06 CDT CPT-40621 Administration single or combination vaccine inc oral 15 :19:04 CDT CPT-28435 Zoster Vaccine (Zostavax) 15:19:04 CDT CPT-68260 Administration single or combination vaccine inc oral 20 :51:03 CDT CPT-21099 Influenza split virus > age 3 20:51:03 CDT CPT-48995 No Charge Offi Visit 14:52:03 CDT CPT-OV Office Visit 14:57:43 CDT CPT-OV Office Visit 15:22:32 CDT CPT-94679 Administration single or combination vaccine inc oral 11 :33:15 CDT CPT-72331 Influenza split virus > age 3 11:33:15 CDT
--- OUTSIDE RECORDS SUMMARY | 2018-04-25 19:35 | XMS REPORT | Clinical Summary ---
Author Author Admin, SACHI Clemons [facility] Address Unknown Phone Unavailable Allergies, Adverse [...] a health care facility ONYCHOMYCOSIS 110.1 Resolved uT Landeros MD Dermatophytosis of nail Gastroesophageal reflux [...] sugar twice daily dx: 250.00 LANCET DEVICES 13500529963 Active Tu Landeros MD Active TRUEDRAW LANCING DEVICE MISC Test twice a day dx 250.0 LANCET DEVICES 98582607184 Active Tu Landeros MD Active TRUERESULT BLOOD GLUCOSE W/DEVICE KIT test blood sugar twice daily dx 250.00 BLOOD GLUCOSE MONITORING SUPPL 87321269089 Active Tu Landeros MD Active TRUETEST TEST INVITR STRP test blood sugar twice daily. DX 250.0 GLUCOSE BLOOD 73672143390 Active Tu Landeros MD Active EMBRACE BLOOD GLUCOSE TEST STRP test blood sugar twice daily DX 250.0 2014 GLUCOSE BLOOD 25532832342 No Longer Active Tu Landeros MD Active TRUETEST TEST STRP test blood sugar three times daily dx: 250.00 GLUCOSE BLOOD 75059226614 No Longer Active Suzebianca VOGEL Active TRUERESULT BLOOD GLUCOSE W/DEVICE KIT use to test blood sugar tid dx: 250.00 BLOOD GLUCOSE MONITORING SUPPL 94274570927 No Longer Active Suze Corey RMA Active ALIGN 4 MG CAPS 1 tid PROBIOTIC PRODUCT 42787019241 No Longer Active Shaun Sy MD Active CIPRO 500 MG TABS 1 bid x 14 days start 5-01-04 CIPROFLOXACIN HCL 95193440229 No Longer Active Shaun Sy MD Active TRAMADOL HCL 50 MG TABS 1-2 tablets every 6 hours as needed for pain TRAMADOL HCL 42116827610 Active Tu Landeros MD Active HYDROCODONE-ACETAMINOPHEN 5-325 MG TABS 1 tab by mouth every 6 hours as needed for pain HYDROCODONE-ACETAMINOPHEN 14611706589 No Longer Active Tu Landeros MD Active OMEPRAZOLE 20 MG CPDR 1 po q a.m. OMEPRAZOLE 51591096383 Active Tu Landeros MD Active GABAPENTIN 100 MG CAPS 1 po bid GABAPENTIN 70320299662 No Longer Active Tu Landeros MD Active B-12 100 MCG TABS Take one by mouth daily CYANOCOBALAMIN 02611305413 No Longer Active Tu Landeros MD Active GABAPENTIN 100 MG CAPS by mouth twice a day GABAPENTIN 22387770086 Active Tu Landeros MD Active BACTRIM DS 800-160 MG TABS 1 bid x 14 day start 09-28-13 SULFAMETHOXAZOLE-TRIMETHOPRIM 69470782713 No Longer Active Tu Landeros MD Active SIMVASTATIN 40 MG TABS 1 tab daily at bedtime SIMVASTATIN 93855029629 Active Tu Landeros MD Active CARVEDILOL 12.5 MG TABS 1 po BID CARVEDILOL 24942373521 Active Tu Landeros MD Active SUPER B COMPLEX/VITAMIN C TABS 1 qd B COMPLEX-C 19568348551 Active JASPREET Perez Active TRILIPIX 135 MG CPDR 1 q hs CHOLINE FENOFIBRATE 65169845432 Active Tu Landeros MD Active FENOFIBRATE 145 MG TABS 1 po qd FENOFIBRATE 51298073562 No Longer Active JASPREET Perez Active OMEPRAZOLE 20 MG TBEC 1 PO 30 MIN BEFORE 1ST MEAL OMEPRAZOLE 39112299863 No Longer Active JASPREET Perez Active SIMVASTATIN 40 MG TABS Take one by mouth daily SIMVASTATIN 88486432432 No Longer Active JASPREET Perez Active VENLAFAXINE HCL 37.5 MG TABS 1 bid VENLAFAXINE HCL 98202730049 Active Tu Landeros MD Active VENLAFAXINE HCL 75 MG TABS 1 po BID VENLAFAXINE HCL 80555004818 No Longer Active JASPREET Perez Active METFORMIN HCL 500 MG TB24 1.5 po BID METFORMIN HCL 23843469617 Active Tu Landeros MD Active CIPRO 500 MG TAB 1 tablet by mouth twice daily CIPROFLOXACIN HCL 73457547537 No Longer Active Tu Landeros MD Active VENLAFAXINE HCL 37.5 MG TABS 1 po BID VENLAFAXINE HCL 06524979707 No Longer Active Suzebianca Nicole RMA Active CVS STOOL SOFTENER 100 MG CAPS 1 tab daily DOCUSATE SODIUM 17188503941 Active Tu Landeros MD Active LAMISIL 250 MG TAB 1 po qd TERBINAFINE HCL 18867888360 No Longer Active Tu Landeros MD Active LORTAB 5 5-500 MG TABS 1/2 to 1 tablet by mouth every 4 hours as needed for pain HYDROCODONE-ACETAMINOPHEN 46632031794 No Longer Active Tu Landeros MD Active ENALAPRIL MALEATE 20 MG TABS 1.5 po qd ENALAPRIL MALEATE 55255734671 Active Tu Landeros MD Active HYDROCODONE-ACETAMINOPHEN 5-500 MG TABS take one po Q 4-6 hours prn HYDROCODONE-ACETAMINOPHEN 98358091423 No Longer Active Tu Landeros MD Active BACTRIM DS 800-160 MG TABS 1 po BID x 7 days SULFAMETHOXAZOLE-TRIMETHOPRIM 48155341489 No Longer Active Tu Landeros MD Active VENLAFAXINE HCL 75 MG TABS 1 po BID VENLAFAXINE HCL 41594225388 No Longer Active Elvira Cervantes MD PhD Active TRAMADOL HCL 50 MG TABS 1 tablets every 6 hours as needed for pain TRAMADOL HCL 60116803725 No Longer Active Tu Landeros MD Active ACCU-CHEK FASTCLIX LANCETS MISC Use to check bloodsugar three times daily as needed LANCETS 22771174022 No Longer Active Tu Landeros MD Active ACCU-CHEK KEYONA PLUS STRP Use for testing bloodsugars three times daily as needed GLUCOSE BLOOD 62922129535 No Longer Active Tu Landeros MD Active ACCU-CHEK KEYONA PLUS W/DEVICE KIT Use for testing bloodsugars three times daily as needed BLOOD GLUCOSE MONITORING SUPPL 23121127325 No Longer Active Tu Landeros MD Active SPIRONOLACTONE 25 MG TAB 0.5 tablet by mouth daily SPIRONOLACTONE 06815522629 No Longer Active Tu Landeros MD Active ALPRAZOLAM 0.5 MG TABS 1 tab every 6hrs as needed ALPRAZOLAM 79841515590 No Longer Active Tu Landeros MD Active AUGMENTIN 875-125 MG TAB 1 tab by mouth twice daily with food AMOXICILLIN-POT CLAVULANATE 82115035138 No Longer Active Tu Landeros MD Active PREDNISONE 20 MG TAB 2 tabs daily for 3 days, 1 tab daily for 3 days, 1/2 tab daily for 2 days PREDNISONE 67836303641 No Longer Active Tu Landeros MD Active XANAX 0.5 MG TABS 1 tablet every 6 hrs prn ALPRAZOLAM 26306107203 No Longer Active Tu Landeros MD Active PREDNISONE 20 MG TAB 2 tabs daily for 3 days, 1 tab daily for 3 days, 1/2 tab daily for 2 days PREDNISONE 43496364955 No Longer Active Tu Landeros MD Active TRIAMCINOLONE ACETONIDE 0.1 % OINT Apply to affected areas TID for up to 2 weeks TRIAMCINOLONE ACETONIDE 00263045770 No Longer Active Tu Landeros MD Active LORTAB 5 5-500 MG TABS 1/2 to 1 tablet by mouth every 4 hours as needed for pain HYDROCODONE-ACETAMINOPHEN 40916751062 No Longer Active Tu Landeros MD Active MULTIVITAMINS TABS Take one by mouth daily MULTIPLE VITAMIN 24640307058 No Longer Active Tu Landeros MD Active MELATONIN 5 MG TABS Take one by mouth daily MELATONIN 45761101752 No Longer Active Tu Landeros MD Active SOMA 350 MG TAB 1 po q 6 hours prn spasm CARISOPRODOL 64629766708 No Longer Active Tu Landeros MD Active MECLIZINE HCL 25 MG CHEW TAB 1 four times a day as needed for dizziness 08/05 MECLIZINE HCL 53304157545 No Longer Active Fab Morales DO Active ANGEL BREEZE 2 TEST DISK test tid prn GLUCOSE BLOOD 40547005512 No Longer Active Negra Scott RN Active DICLOFENAC SODIUM 50 MG TBEC 1 tablet by mouth three times a day as needed DICLOFENAC SODIUM 68053177871 Active Tu Landeros MD Active REGLAN 10 MG TAB 1 po TID PRN [place] METOCLOPRAMIDE HCL 31292816549 No Longer Active Tu Landeros MD Active METFORMIN HCL 500 MG TABS 1 PO BID METFORMIN HCL 31487617298 No Longer Active Tu Landeros MD Active AMBIEN 10 MG TAB 1 tab by mouth at bedtime as needed for sleep ZOLPIDEM TARTRATE 49305837804 No Longer Active Tu Landeros MD Active FLUOXETINE HCL 40 MG CAPS 1 po q day FLUOXETINE HCL 39636240667 No Longer Active Mayra Garrett Active FISH OIL 1000 MG CAPS Take one by mouth daily OMEGA-3 FATTY ACIDS 78146716553 Active Tu Landeros MD Active GLUCOSAMINE 500 MG TABS Take 2 tab po qd GLUCOSAMINE 19098798514 Active Tu Landeros MD Active TRILIPIX 135 MG CPDR 1 po qd CHOLINE FENOFIBRATE 28335426612 No Longer Active Tu Landeros MD Active ASPIRIN 81 MG CHEW TAB 1 tablet by mouth daily ASPIRIN 34740485017 Active Tu Landeros MD Active FUROSEMIDE 40 MG TAB 1 tablet by mouth daily FUROSEMIDE 00164394243 Active Tu Landeros MD Active REQUIP 2 MG TABS Take one tablet at bedtime prn ROPINIROLE HCL 24686698795 Active Tu Landeros MD Active KLOR-CON 10 10 MEQ CR-TABS TAKE 2 TABS DAILY POTASSIUM CHLORIDE 96030443010 Active Tu Landeros MD Active AMBIEN 10 MG TAB 1 tab by mouth at bedtime as needed for sleep AMBIEN 10 MG TAB 213386 ZOLPIDEM TARTRATE Inactive METFORMIN HCL 500 MG TABS 1 PO BID METFORMIN HCL 500 MG TABS 254017 METFORMIN HCL Inactive REGLAN 10 MG TAB 1 po TID PRN Nausea REGLAN 10 MG TAB 278809 METOCLOPRAMIDE HCL Inactive MECLIZINE HCL 25 MG CHEW TAB 1 four times a day as needed for dizziness 08/05 MECLIZINE HCL 25 MG CHEW TAB 690501 MECLIZINE HCL Inactive SOMA 350 MG TAB 1 po q 6 hours prn spasm SOMA 350 MG TAB 783268 CARISOPRODOL Inactive MELATONIN 5 MG TABS Take one by mouth daily MELATONIN 5 MG TABS 206773 MELATONIN Inactive MULTIVITAMINS TABS Take one by mouth daily MULTIVITAMINS TABS MULTIPLE VITAMIN Inactive LORTAB 5 5-500 MG TABS 1/2 to 1 tablet by mouth every 4 hours as needed for pain LORTAB 5 5-500 MG TABS HYDROCODONE- ACETAMINOPHEN Inactive XANAX 0.5 MG TABS 1 tablet every 6 hrs prn XANAX 0.5 MG TABS 574493 ALPRAZOLAM Inactive AUGMENTIN 875-125 MG TAB 1 tab by mouth twice daily with food AUGMENTIN 875-125 MG TAB 826203 AMOXICILLIN-POT CLAVULANATE Inactive ALPRAZOLAM 0.5 MG TABS 1 tab every 6hrs as needed ALPRAZOLAM 0.5 MG TABS 730095 ALPRAZOLAM Inactive SPIRONOLACTONE 25 MG TAB 0.5 tablet by mouth daily SPIRONOLACTONE 25 MG TAB 737491 SPIRONOLACTONE Inactive ACCU-CHEK KEYONA PLUS W/DEVICE KIT Use for testing bloodsugars three times daily as needed ACCU-CHEK KEYONA PLUS W/DEVICE KIT BLOOD GLUCOSE MONITORING SUPPL Inactive ACCU-CHEK KEYONA PLUS STRP Use for testing bloodsugars three times daily as needed ACCU-CHEK KEYONA PLUS STRP GLUCOSE BLOOD Inactive ACCU-CHEK FASTCLIX LANCETS MISC Use to check bloodsugar three times daily as needed ACCU-CHEK FASTCLIX LANCETS MISC 12946230779 LANCETS Inactive TRAMADOL HCL 50 MG TABS 1 tablets every 6 hours as needed for pain TRAMADOL HCL 50 MG TABS 055747 TRAMADOL HCL Inactive VENLAFAXINE HCL 75 MG TABS 1 po BID VENLAFAXINE HCL 75 MG TABS 530562 VENLAFAXINE HCL Inactive HYDROCODONE-ACETAMINOPHEN 5-500 MG TABS take one po Q 4-6 hours prn HYDROCODONE-ACETAMINOPHEN 5-500 MG TABS HYDROCODONE- ACETAMINOPHEN Inactive LORTAB 5 5-500 MG TABS 1/2 to 1 tablet by mouth every 4 hours as needed for pain LORTAB 5 5-500 MG TABS HYDROCODONE- ACETAMINOPHEN Inactive LAMISIL 250 MG TAB 1 po qd LAMISIL 250 MG TAB 779575 TERBINAFINE HCL Inactive VENLAFAXINE HCL 37.5 MG TABS 1 po BID VENLAFAXINE HCL 37.5 MG TABS 952626 VENLAFAXINE HCL Inactive CIPRO 500 MG TAB 1 tablet by mouth twice daily CIPRO 500 MG TAB 340999 CIPROFLOXACIN HCL Inactive VENLAFAXINE HCL 75 MG TABS 1 po BID VENLAFAXINE HCL 75 MG TABS 252518 VENLAFAXINE HCL Inactive SIMVASTATIN 40 MG TABS Take one by mouth daily SIMVASTATIN 40 MG TABS 211962 SIMVASTATIN Inactive OMEPRAZOLE 20 MG TBEC 1 PO 30 MIN BEFORE 1ST MEAL OMEPRAZOLE 20 MG TBEC 781238 OMEPRAZOLE Inactive FENOFIBRATE 145 MG TABS 1 po qd FENOFIBRATE 145 MG TABS 994645 FENOFIBRATE Inactive BACTRIM DS 800-160 MG TABS 1 bid x 14 day start 09-28-13 BACTRIM DS 800-160 MG TABS SULFAMETHOXAZOLE-TRIMETHOPRIM Inactive B-12 100 MCG TABS Take one by mouth daily B-12 100 MCG TABS CYANOCOBALAMIN Inactive GABAPENTIN 100 MG CAPS 1 po bid GABAPENTIN 100 MG CAPS 438792 GABAPENTIN Inactive HYDROCODONE-ACETAMINOPHEN 5-325 MG TABS 1 tab by mouth every 6 hours as needed for pain HYDROCODONE-ACETAMINOPHEN 5-325 MG TABS 767613 HYDROCODONE-ACETAMINOPHEN Inactive CIPRO 500 MG TABS 1 bid x 14 days start 09-28-13 CIPRO 500 MG TABS 819475 CIPROFLOXACIN HCL Inactive ALIGN 4 MG CAPS [...] 2 weeks TRIAMCINOLONE ACETONIDE 0.1 % OINT 0534857 TRIAMCINOLONE ACETONIDE Inactive PREDNISONE 20 MG TAB 2 tabs daily for 3 days, 1 tab daily for 3 days, 1/2 tab daily for 2 days PREDNISONE 20 MG TAB 942117 PREDNISONE Inactive PREDNISONE 20 MG TAB 2 tabs daily for 3 days, 1 tab daily for 3 days, 1/2 tab daily for 2 days PREDNISONE 20 MG TAB 349275 PREDNISONE Inactive BACTRIM DS 800-160 MG TABS 1 po BID x 7 days BACTRIM DS 800-160 MG TABS SULFAMETHOXAZOLE-TRIMETHOPRIM Inactive Immunizations Vaccine Administration Date Value Standard Description Seasonal influenza vaccine, injectable, containing preservative, for > 3 years old (Afluria, FluLaval, Fluzone, Fluvirin, Fluarix, Agriflu(>=18 yo)) Fluzone (>3 yrs.) [[id number]] Influenza, seasonal, injectable influenza immunization (Flu Vax) has been administered 02/22/2012 influenza virus vaccine, unspecified formulation Seasonal influenza vaccine, injectable, containing preservative, for > 3 years old (Afluria, FluLaval, Fluzone, Fluvirin, Fluarix, Agriflu(>=18 yo)) Fluzone (>3 yrs.) [[id number]] Influenza, seasonal, injectable Vital Signs Date Name [...] CBC - Chemistry sodium, serum 143 mmol/L 140-801 7498/03/10 potassium, serum 4.9 mmol/L 3.5-5.2 chloride, serum [...] HGBA1C - Chemistry sodium, serum 144 mmol/L 951-612 6725/04/16 potassium, serum 4.2 mmol/L 3.5-5.2 chloride, serum [...] 0.20 mg/dL 0.00-1.00 cholesterol, serum 133 mg/dL 743-068 8253/04/16 triglyceride, serum, fasting 142 mg/dL 30-200 HDL [...] mg/dL Encounters Code Encounter Date Provider Facility CPT-40738 Level 4 Est. Patient 14:38:57 CDT Tu Landeros MD [facility] CPT-61100 Level 4 Est. Patient 14:27:39 CONFIGURATION DEVELOPER Tu Landeros MD [facility] CPT-04328 Level 4 Est. Patient 09:45:25 CDT Tu Landeros MD [facility] CPT-15893 Level 4 Est. Patient 09:05:20 CONFIGURATION DEVELOPER Tu Landeros MD [facility] CPT-15744 Level 4 Est. Patient 14:09:06 CDT Tu Landeros MD [facility] CPT-66129 Level 3 Est. Patient 13:36:54 CDT Tu Landeros MD [facility] CPT-91440 Level 3 Est. Patient 08:59:14 CDT Tu Landreos MD [facility] CPT-39193 Level 3 Est. Patient 13:48:35 CDT Fab Morales DO [facility] CPT-30812 Level 4 Est. Patient 10:05:48 CDT Tu Landeros MD [facility] CPT-17198 Level 3 Est. Patient 13:38:42 CDT Marek BANKS [facility] CPT-66302 Level 5 Est. Patient 08:08:39 CDT Jerrica FRANCIS [facility] CPT-19307 Level 4 Est. Patient 14:23:38 CDT Tu Landeros MD [facility] CPT-69821 Level 3 Est. Patient 11:44:04 CDT Tu Landeros MD [facility] CPT-42829 Level 3 Est. Patient 11:03:20 CONFIGURATION DEVELOPER Tu Landeros MD [facility] CPT-19899 Level 3 Est. Patient 11:03:14 CONFIGURATION DEVELOPER Tu Landeros MD [facility] CPT-85446 Level 3 Est. Patient 12:42:49 CDT Tu Landeros MD [facility] CPT-60256 Level 3 Est. Patient 11:52:06 CDT Tu Landeros MD [facility] CPT-98565 Level 3 Est. Patient 13:58:11 CDT Tu Landeros MD [facility] CPT-10098 Level 3 Est. Patient 17:50:07 CDT Fab Morales DO [facility] CPT-66050 Level 3 Est. Patient 12:06:29 CDT Elvira Cervantes MD PhD [facility] CPT-10263 Level 3 Est. Patient 15:50:32 CDT Tu Landeros MD [facility] CPT-19788 Level 4 Est. Patient 16:08:29 CDT Tu Landeros MD [facility] CPT-68685 Level 3 Est. Patient 16:04:19 CDT Tu Landeros MD [facility] CPT-06810 Level 3 Est. Patient 11:22:30 CONFIGURATION DEVELOPER Tu Landeros MD [facility] CPT-37205 Level 4 Est. Patient 16:24:02 CONFIGURATION DEVELOPER Tu Landeros MD [facility] CPT-54113 Level 3 Est. Patient 17:21:23 CONFIGURATION DEVELOPER Tu Landeros MD [facility] Procedures Code Procedure Name Date Entry Date Standard Description CPT-JTINJ Asp/Joint Injection 15:51:27 CONFIGURATION DEVELOPER CPT-OV Office Visit 15:52:02 CONFIGURATION DEVELOPER CPT-OV Office Visit 15:45:11 CDT CPT-000 Give Zostavax 14:09:06 CDT CPT-67898 Administration single or combination vaccine inc oral 15 :19:04 CDT CPT-13584 Zoster Vaccine (Zostavax) 15:19:04 CDT CPT-38563 Administration single or combination vaccine inc oral 20 :51:03 CDT CPT-92460 Influenza split virus > age 3 20:51:03 CDT CPT-25234 No Charge Offi Visit 14:52:03 CDT CPT-OV Office Visit 14:57:43 CDT CPT-OV Office Visit 15:22:32 CDT CPT-10882 Administration single or combination vaccine inc oral 11 :33:15 CDT CPT-33387 Influenza split virus > age 3 11:33:15 CDT
--- OUTSIDE RECORDS SUMMARY | 2018-04-25 19:37 | XMS REPORT | Clinical Summary ---
Author Author Admin, SACHI Clemons [facility] Address Unknown Phone Unavailable Allergies, [...] lower leg POSTMENOPAUSAL BLEEDING ICD-627.1 Inactive Elvira Cervanets MD [...] three times daily dx: 250.00 GLUCOSE BLOOD 64127024026 No Longer Active Suze VOGEL Active TRUERESULT BLOOD GLUCOSE W/DEVICE KIT use to test blood sugar tid dx: 250.00 BLOOD GLUCOSE MONITORING SUPPL 64953132944 No Longer Active Suze Corey NURYSMahendra Active EMBRACE BLOOD GLUCOSE TEST STRP test blood sugar twice daily DX 250.0 GLUCOSE BLOOD 82239943663 Active Tu Landeros MD Active ALIGN 4 MG CAPS 1 tid PROBIOTIC PRODUCT 88148134161 No Longer Active Shaun Sy MD Active CIPRO 500 MG TABS 1 bid x 14 days start 09-28-13 CIPROFLOXACIN HCL 32469177038 No Longer Active Shaun Sy MD Active TRAMADOL HCL 50 MG TABS 1-2 tablets every 6 hours as needed for pain TRAMADOL HCL 21974167776 Active Tu Landeros MD Active HYDROCODONE-ACETAMINOPHEN 5-325 MG TABS 1 tab by mouth every 6 hours as needed for pain HYDROCODONE-ACETAMINOPHEN 74266231074 No Longer Active Tu Landeros MD Active OMEPRAZOLE 20 MG CPDR 1 po q a.m. OMEPRAZOLE 62895590626 Active Tu Landeros MD Active GABAPENTIN 100 MG CAPS 1 po bid GABAPENTIN 73528041347 No Longer Active Tu Landeros MD Active B-12 100 MCG TABS Take one by mouth daily CYANOCOBALAMIN 83898461872 No Longer Active Tu Landeros MD Active GABAPENTIN 100 MG CAPS by mouth twice a day GABAPENTIN 10658480465 Active Tu Landeros MD Active BACTRIM DS 800-160 MG TABS 1 bid x 14 day start 09-28-13 SULFAMETHOXAZOLE-TRIMETHOPRIM 86795917579 No Longer Active Tu Landeros MD Active SIMVASTATIN 40 MG TABS 1 tab daily at bedtime SIMVASTATIN 14452745083 Active Tu Landeros MD Active CARVEDILOL 12.5 MG TABS 1 po BID CARVEDILOL 77034695191 Active Tu Landeros MD Active SUPER B COMPLEX/VITAMIN C TABS 1 qd B COMPLEX-C 86493438672 Active JASPREET Perez Active TRILIPIX 135 MG CPDR 1 q hs CHOLINE FENOFIBRATE 17897532394 Active Tu Landeros MD Active FENOFIBRATE 145 MG TABS 1 po qd FENOFIBRATE 68038939063 No Longer Active JASPREET Perez Active OMEPRAZOLE 20 MG TBEC 1 PO 30 MIN BEFORE 1ST MEAL OMEPRAZOLE 80516340273 No Longer Active JASPREET Perez Active SIMVASTATIN 40 MG TABS Take one by mouth daily SIMVASTATIN 51606970131 No Longer Active JASPREET Perez Active VENLAFAXINE HCL 37.5 MG TABS 1 bid VENLAFAXINE HCL 06199208101 Active Tu Landeros MD Active VENLAFAXINE HCL 75 MG TABS 1 po BID VENLAFAXINE HCL 16427886928 No Longer Active JASPREET Perez Active METFORMIN HCL 500 MG TB24 1.5 po BID METFORMIN HCL 97574730005 Active Tu Landeros MD Active CIPRO 500 MG TAB 1 tablet by mouth twice daily CIPROFLOXACIN HCL 19013368479 No Longer Active Tu Landeros MD Active VENLAFAXINE HCL 37.5 MG TABS 1 po BID VENLAFAXINE HCL 62191781018 No Longer Active Suze Corey RMA Active CVS STOOL SOFTENER 100 MG CAPS 1 tab daily DOCUSATE SODIUM 74454087386 Active Tu Landeros MD Active LAMISIL 250 MG TAB 1 po qd TERBINAFINE HCL 96220108004 No Longer Active Tu Landeros MD Active LORTAB 5 5-500 MG TABS 1/2 to 1 tablet by mouth every 4 hours as needed for pain HYDROCODONE-ACETAMINOPHEN 65723336920 No Longer Active Tu Landeros MD Active ENALAPRIL MALEATE 20 MG TABS 1.5 po qd ENALAPRIL MALEATE 70081712531 Active Tu Landeros MD Active HYDROCODONE-ACETAMINOPHEN 5-500 MG TABS take one po Q 4-6 hours prn HYDROCODONE-ACETAMINOPHEN 66930129691 No Longer Active Tu Landeros MD Active BACTRIM DS 800-160 MG TABS 1 po BID x 7 days SULFAMETHOXAZOLE-TRIMETHOPRIM 05100398689 No Longer Active Tu Landeros MD Active VENLAFAXINE HCL 75 MG TABS 1 po BID VENLAFAXINE HCL 82918912260 No Longer Active Elvira Cervantes MD PhD Active TRAMADOL HCL 50 MG TABS 1 tablets every 6 hours as needed for pain TRAMADOL HCL 32928613830 No Longer Active Tu Landeros MD Active ACCU-CHEK FASTCLIX LANCETS MISC Use to check bloodsugar three times daily as needed LANCETS 51238045776 No Longer Active Tu Landeros MD Active ACCU-CHEK KEYONA PLUS STRP Use for testing bloodsugars three times daily as needed GLUCOSE BLOOD 04284545247 No Longer Active Tu Landeros MD Active ACCU-CHEK KEYONA PLUS W/DEVICE KIT Use for testing bloodsugars three times daily as needed BLOOD GLUCOSE MONITORING SUPPL 60034756810 No Longer Active Tu Landeros MD Active SPIRONOLACTONE 25 MG TAB 0.5 tablet by mouth daily SPIRONOLACTONE 85297487099 No Longer Active Tu Landeros MD Active ALPRAZOLAM 0.5 MG TABS 1 tab every 6hrs as needed ALPRAZOLAM 97384731300 No Longer Active Tu Landeros MD Active AUGMENTIN 875-125 MG TAB 1 tab by mouth twice daily with food AMOXICILLIN-POT CLAVULANATE 18301752696 No Longer Active Tu Landeros MD Active PREDNISONE 20 MG TAB 2 tabs daily for 3 days, 1 tab daily for 3 days, 1/2 tab daily for 2 days PREDNISONE 55065070363 No Longer Active Tu Landeros MD Active XANAX 0.5 MG TABS 1 tablet every 6 hrs prn ALPRAZOLAM 08021438876 No Longer Active Tu Landeros MD Active PREDNISONE 20 MG TAB 2 tabs daily for 3 days, 1 tab daily for 3 days, 1/2 tab daily for 2 days PREDNISONE 10842924250 No Longer Active Tu Landeros MD Active TRIAMCINOLONE ACETONIDE 0.1 % OINT Apply to affected areas TID for up to 2 weeks TRIAMCINOLONE ACETONIDE 35962343002 No Longer Active Tu Landeros MD Active LORTAB 5 5-500 MG TABS 1/2 to 1 tablet by mouth every 4 hours as needed for pain HYDROCODONE-ACETAMINOPHEN 79557616726 No Longer Active Tu Landeros MD Active MULTIVITAMINS TABS Take one by mouth daily MULTIPLE VITAMIN 53662035001 No Longer Active Tu Landeros MD Active MELATONIN 5 MG TABS Take one by mouth daily MELATONIN 52428607027 No Longer Active Tu Landeros MD Active SOMA 350 MG TAB 1 po q 6 hours prn spasm CARISOPRODOL 79891638689 No Longer Active Tu Landeros MD Active MECLIZINE HCL 25 MG CHEW TAB 1 four times a day as needed for dizziness 08/05 MECLIZINE HCL 17986805595 No Longer Active Fab Morales DO Active ANGEL BREEZE 2 TEST DISK test tid prn GLUCOSE BLOOD 07020921660 No Longer Active Negra Scott RN Active DICLOFENAC SODIUM 50 MG TBEC 1 tablet by mouth three times a day as needed DICLOFENAC SODIUM 99338263331 Active Tu Landeros MD Active REGLAN 10 MG TAB 1 po TID PRN [place] METOCLOPRAMIDE HCL 47093769363 No Longer Active Tu Landeros MD Active METFORMIN HCL 500 MG TABS 1 PO BID METFORMIN HCL 15266834427 No Longer Active Tu Landeros MD Active AMBIEN 10 MG TAB 1 tab by mouth at bedtime as needed for sleep ZOLPIDEM TARTRATE 23886797337 No Longer Active Tu Landeros MD Active FLUOXETINE HCL 40 MG CAPS 1 po q day FLUOXETINE HCL 72976166807 No Longer Active Mayra Churchton Active FISH OIL 1000 MG CAPS Take one by mouth daily OMEGA-3 FATTY ACIDS 27709321642 Active Tu Landeros MD Active GLUCOSAMINE 500 MG TABS Take 2 tab po qd GLUCOSAMINE 80507090205 Active Tu Landeros MD Active TRILIPIX 135 MG CPDR 1 po qd CHOLINE FENOFIBRATE 23147056197 No Longer Active Tu Landeros MD Active ASPIRIN 81 MG CHEW TAB 1 tablet by mouth daily ASPIRIN 89687095383 Active Tu Landeros MD Active FUROSEMIDE 40 MG TAB 1 tablet by mouth daily FUROSEMIDE 56543884824 Active Tu Landeros MD Active REQUIP 2 MG TABS Take one tablet at bedtime prn ROPINIROLE HCL 22243317392 Active Tu Landeros MD Active KLOR-CON 10 10 MEQ CR-TABS TAKE 2 TABS DAILY POTASSIUM CHLORIDE 93990424919 Active Lesli Kellogg RAILCAR BRAKE OPERATOR Active AMBIEN 10 MG TAB 1 tab by mouth at bedtime as needed for sleep AMBIEN 10 MG TAB 960917 ZOLPIDEM TARTRATE Inactive METFORMIN HCL 500 MG TABS 1 PO BID METFORMIN HCL 500 MG TABS 884836 METFORMIN HCL Inactive REGLAN 10 MG TAB 1 po TID PRN [place] REGLAN 10 MG TAB 228094 METOCLOPRAMIDE HCL Inactive MECLIZINE HCL 25 MG CHEW TAB 1 four times a day as needed for dizziness 08/05 MECLIZINE HCL 25 MG CHEW TAB 894991 MECLIZINE HCL Inactive SOMA 350 MG TAB 1 po q 6 hours prn spasm SOMA 350 MG TAB 451947 CARISOPRODOL Inactive MELATONIN 5 MG TABS Take one by mouth daily MELATONIN 5 MG TABS 218482 MELATONIN Inactive MULTIVITAMINS TABS Take one by mouth daily MULTIVITAMINS TABS MULTIPLE VITAMIN Inactive LORTAB 5 5-500 MG TABS 1/2 to 1 tablet by mouth every 4 hours as needed for pain LORTAB 5 5-500 MG TABS HYDROCODONE- ACETAMINOPHEN Inactive XANAX 0.5 MG TABS 1 tablet every 6 hrs prn XANAX 0.5 MG TABS 768147 ALPRAZOLAM Inactive AUGMENTIN 875-125 MG TAB 1 tab by mouth twice daily with food AUGMENTIN 875-125 MG TAB 256374 AMOXICILLIN-POT CLAVULANATE Inactive ALPRAZOLAM 0.5 MG TABS 1 tab every 6hrs as needed ALPRAZOLAM 0.5 MG TABS 461593 ALPRAZOLAM Inactive SPIRONOLACTONE 25 MG TAB 0.5 tablet by mouth daily SPIRONOLACTONE 25 MG TAB 641191 SPIRONOLACTONE Inactive ACCU-CHEK KEYONA PLUS W/DEVICE KIT Use for testing bloodsugars three times daily as needed ACCU-CHEK KEYONA PLUS W/DEVICE KIT BLOOD GLUCOSE MONITORING SUPPL Inactive ACCU-CHEK KEYONA PLUS STRP Use for testing bloodsugars three times daily as needed ACCU-CHEK KEYONA PLUS STRP GLUCOSE BLOOD Inactive ACCU-CHEK FASTCLIX LANCETS MISC Use to check bloodsugar three times daily as needed ACCU-CHEK FASTCLIX LANCETS MISC 37334427888 LANCETS Inactive TRAMADOL HCL 50 MG TABS 1 tablets every 6 hours as needed for pain TRAMADOL HCL 50 MG TABS 248747 TRAMADOL HCL Inactive VENLAFAXINE HCL 75 MG TABS 1 po BID VENLAFAXINE HCL 75 MG TABS 561216 VENLAFAXINE HCL Inactive HYDROCODONE-ACETAMINOPHEN 5-500 MG TABS take one po Q 4-6 hours prn HYDROCODONE-ACETAMINOPHEN 5-500 MG TABS HYDROCODONE- ACETAMINOPHEN Inactive LORTAB 5 5-500 MG TABS 1/2 to 1 tablet by mouth every 4 hours as needed for pain LORTAB 5 5-500 MG TABS HYDROCODONE- ACETAMINOPHEN Inactive LAMISIL 250 MG TAB 1 po qd LAMISIL 250 MG TAB 837679 TERBINAFINE HCL Inactive VENLAFAXINE HCL 37.5 MG TABS 1 po BID VENLAFAXINE HCL 37.5 MG TABS 029495 VENLAFAXINE HCL Inactive CIPRO 500 MG TAB 1 tablet by mouth twice daily CIPRO 500 MG TAB 700553 CIPROFLOXACIN HCL Inactive VENLAFAXINE HCL 75 MG TABS 1 po BID VENLAFAXINE HCL 75 MG TABS 799176 VENLAFAXINE HCL Inactive SIMVASTATIN 40 MG TABS Take one by mouth daily SIMVASTATIN 40 MG TABS 413327 SIMVASTATIN Inactive OMEPRAZOLE 20 MG TBEC 1 PO 30 MIN BEFORE 1ST MEAL OMEPRAZOLE 20 MG TBEC 862536 OMEPRAZOLE Inactive FENOFIBRATE 145 MG TABS 1 po qd FENOFIBRATE 145 MG TABS 008751 FENOFIBRATE Inactive BACTRIM DS 800-160 MG TABS 1 bid x 14 day start 09-28-13 BACTRIM DS 800-160 MG TABS SULFAMETHOXAZOLE-TRIMETHOPRIM Inactive B-12 100 MCG TABS Take one by mouth daily B-12 100 MCG TABS CYANOCOBALAMIN Inactive GABAPENTIN 100 MG CAPS 1 po bid GABAPENTIN 100 MG CAPS 397305 GABAPENTIN Inactive HYDROCODONE-ACETAMINOPHEN 5-325 MG TABS 1 tab by mouth every 6 hours as needed for pain HYDROCODONE-ACETAMINOPHEN 5-325 MG TABS 739875 HYDROCODONE-ACETAMINOPHEN Inactive CIPRO 500 MG TABS 1 bid x 14 days start 09-28-13 CIPRO 500 MG TABS 787735 CIPROFLOXACIN HCL Inactive ALIGN 4 MG CAPS [...] 2 weeks TRIAMCINOLONE ACETONIDE 0.1 % OINT 4217045 TRIAMCINOLONE ACETONIDE Inactive PREDNISONE 20 MG TAB 2 tabs daily for 3 days, 1 tab daily for 3 days, 1/2 tab daily for 2 days PREDNISONE 20 MG TAB 255136 PREDNISONE Inactive PREDNISONE 20 MG TAB 2 tabs daily for 3 days, 1 tab daily for 3 days, 1/2 tab daily for 2 days PREDNISONE 20 MG TAB 668869 PREDNISONE Inactive BACTRIM DS 800-160 MG TABS 1 po BID x 7 days BACTRIM DS 800-160 MG TABS SULFAMETHOXAZOLE-TRIMETHOPRIM Inactive Immunizations Vaccine Administration Date Value Standard Description Seasonal influenza vaccine, injectable, containing preservative, for > 3 years old (Afluria, FluLaval, Fluzone, Fluvirin, Fluarix, Agriflu(>=18 yo)) Fluzone (>3 yrs.) [[id number]] Influenza, seasonal, injectable influenza immunization (Flu Vax) has been administered 02/22/2012 influenza virus vaccine, unspecified formulation Seasonal influenza vaccine, injectable, containing preservative, for > 3 years old (Afluria, FluLaval, Fluzone, Fluvirin, Fluarix, Agriflu(>=18 yo)) Fluzone (>3 yrs.) [[id number]] Influenza, seasonal, injectable Vital Signs Date Name [...] HGBA1C - Chemistry sodium, serum 144 mmol/L 749-039 5970/04/16 potassium, serum 4.2 mmol/L 3.5-5.2 chloride, serum [...] 0.20 mg/dL 0.00-1.00 cholesterol, serum 133 mg/dL 458-754 3184/04/16 triglyceride, serum, fasting 142 mg/dL 30-200 HDL [...] mg/dL Encounters Code Encounter Date Provider Facility CPT-20439 Level 4 Est. Patient 14:27:39 SUPERVISOR SIGN [employer]OP Tu Landeros MD [facility] CPT-91658 Level 4 Est. Patient 09:45:25 CDT Tu Landeros MD [facility] CPT-80288 Level 4 Est. Patient 09:05:20 SUPERVISOR SIGN SHOP Tu Landeros MD [facility] CPT-01256 Level 4 Est. Patient 14:09:06 CDT Tu Landeros MD [facility] CPT-30413 Level 3 Est. Patient 13:36:54 CDT Tu Landeros MD [facility] CPT-40102 Level 3 Est. Patient 08:59:14 CDT Tu Landeros MD [facility] CPT-33697 Level 3 Est. Patient 13:48:35 CDT Fab Morales DO [facility] CPT-24425 Level 4 Est. Patient 10:05:48 CDT Tu Landeros MD [facility] CPT-09516 Level 3 Est. Patient 13:38:42 CDT Marek BANKS [facility] CPT-14941 Level 5 Est. Patient 08:08:39 CDT Jerrica Hopkins TITO [facility] CPT-96458 Level 4 Est. Patient 14:23:38 CDT Tu Landeros MD [facility] CPT-84722 Level 3 Est. Patient 11:44:04 CDT Tu Landeros MD [facility] CPT-78778 Level 3 Est. Patient 11:03:20 SUPERVISOR S[employer] Tu Landeros MD [facility] CPT-37532 Level 3 Est. Patient 11:03:14 SUPERVISOR SIGN SHOP Tu Landeros MD [facility] CPT-74726 Level 3 Est. Patient 12:42:49 CDT Tu Landeros MD [facility] CPT-83933 Level 3 Est. Patient 11:52:06 CDT Tu Landeros MD [facility] CPT-58808 Level 3 Est. Patient 13:58:11 CDT Tu Landeros MD [facility] CPT-88129 Level 3 Est. Patient 17:50:07 CDT Fab Morales DO [facility] CPT-88181 Level 3 Est. Patient 12:06:29 CDT Elvira Cervantes MD PhD [facility] CPT-44628 Level 3 Est. Patient 15:50:32 CDT Tu Landeros MD [facility] CPT-64322 Level 4 Est. Patient 16:08:29 CDT Tu Landeros MD [facility] CPT-59479 Level 3 Est. Patient 16:04:19 CDT Tu Landeros MD [facility] CPT-13010 Level 3 Est. Patient 11:22:30 SUPERVISOR SIGN SHOP Tu Landeros MD [facility] CPT-60768 Level 4 Est. Patient 16:24:02 SUPERVISOR SIGN SHOP Tu Landeros MD [facility] CPT-00875 Level 3 Est. Patient 17:21:23 SUPERVISOR SIGN [employer]OP Tu Landeros MD [facility] Procedures Code Procedure Name Date Entry Date Standard Description CPT-[id number] Asp/Joint Injection 15:51:27 SUPERVISOR S[employer] CPT-OV Office Visit 15:52:02 SUPERVISOR [employer] CPT-OV Office Visit 15:45:11 CDT CPT-000 Give Zostavax 14:09:06 CDT CPT-45151 Administration single or combination vaccine inc oral 15 :19:04 CDT CPT-61256 Zoster Vaccine (Zostavax) 15:19:04 CDT CPT-00753 Administration single or combination vaccine inc oral 20 :51:03 CDT CPT-50372 Influenza split virus > age 3 20:51:03 CDT CPT-34698 No Charge Offi Visit 14:52:03 CDT CPT-OV Office Visit 14:57:43 CDT CPT-OV Office Visit 15:22:32 CDT CPT-60022 Administration single or combination vaccine inc oral 11 :33:15 CDT CPT-98485 Influenza split virus > age 3 11:33:15 CDT
--- OUTSIDE RECORDS SUMMARY | 2018-04-25 19:38 | XMS REPORT | Clinical Summary ---
Author Author Admin, SACHI Organization [facility] Address Unknown Phone Allergies, Adverse [...] x 14 days start 09-28-13 CIPROFLOXACIN HCL 67206501497 Active Kevin [place] Active ALIGN 4 MG CAPS 1 tid PROBIOTIC PRODUCT 37742973072 Active Gustavo [place] Active BACTRIM DS 800-160 MG TABS 1 bid x 14 day start 09-28-13 SULFAMETHOXAZOLE-TRIMETHOPRIM 42618306036 Active Gustavo Norma Active GABAPENTIN 300 MG CAPS 1 tid GABAPENTIN 73290436545 Active Gustavo [place] Active SUPER B COMPLEX/VITAMIN C TABS 1 qd B COMPLEX-C 57177157535 Active Kevin Norma Active TRILIPIX 135 MG CPDR 1 q hs CHOLINE FENOFIBRATE 87146234839 Active Gustavo Norma Active FENOFIBRATE 145 MG TABS 1 po qd FENOFIBRATE 90394023535 No Longer Active Gustavo [place] Active OMEPRAZOLE 20 MG TBEC 1 PO 30 MIN BEFORE 1ST MEAL OMEPRAZOLE 48369656097 No Longer Active Gustavo [place] Active SIMVASTATIN 40 MG TABS Take one by mouth daily SIMVASTATIN 70530740208 No Longer Active Gustavo [place] Active GABAPENTIN 100 MG CAPS 1 po bid GABAPENTIN 41363515785 Active Kevin [place] Active CARVEDILOL 12.5 MG TABS Take 1 by mouth 30 min. before first meal CARVEDILOL 88917426002 Active Gustavo [place] Active VENLAFAXINE HCL 37.5 MG TABS 1 bid VENLAFAXINE HCL 91017819400 Active Gustavowin [place] Active VENLAFAXINE HCL 75 MG TABS 1 po BID VENLAFAXINE HCL 27816880903 No Longer Active Gustavo Norma Active HYDROCODONE-ACETAMINOPHEN 5-325 MG TABS 1 tab by mouth every 6 hours as needed for pain HYDROCODONE-ACETAMINOPHEN 22700039438 Active Tu Landeros MD Active METFORMIN HCL 500 MG TB24 1.5 po BID METFORMIN HCL 45814406015 Active Tu Landeros MD Active CIPRO 500 MG TAB 1 tablet by mouth twice daily CIPROFLOXACIN HCL 43181019983 No Longer Active Tu Landeros MD Active VENLAFAXINE HCL 37.5 MG TABS 1 po BID VENLAFAXINE HCL 14771674174 No Longer Active Suze Corey RMA Active [employer]S STOOL SOFTENER 100 MG CAPS 1 tab daily DOCUSATE SODIUM 21765404428 Active Tu Landeros MD Active LAMISIL 250 MG TAB 1 po qd TERBINAFINE HCL 72106784526 No Longer Active Tu Landeros MD Active LORTAB 5 5-500 MG TABS 1/2 to 1 tablet by mouth every 4 hours as needed for pain HYDROCODONE-ACETAMINOPHEN 10323545547 No Longer Active Tu Landeros MD Active ENALAPRIL MALEATE 20 MG TABS 1.5 po qd ENALAPRIL MALEATE 31789821913 Active Tu Landeros MD Active HYDROCODONE-ACETAMINOPHEN 5-500 MG TABS take one po Q 4-6 hours prn HYDROCODONE-ACETAMINOPHEN 58457840794 No Longer Active Tu Landeros MD Active BACTRIM DS 800-160 MG TABS 1 po BID x 7 days SULFAMETHOXAZOLE-TRIMETHOPRIM 88788404598 No Longer Active Tu Landeros MD Active VENLAFAXINE HCL 75 MG TABS 1 po BID VENLAFAXINE HCL 68232530116 No Longer Active Elvira Cervantes MD PhD Active TRAMADOL HCL 50 MG TABS 1 tablets every 6 hours as needed for pain TRAMADOL HCL 85331452894 No Longer Active Tu Landeros MD Active TRUERESULT BLOOD GLUCOSE W/DEVICE KIT use to test blood sugar tid dx: 250.00 BLOOD GLUCOSE MONITORING SUPPL 25304132380 Active Tu Landeros MD Active TRUETEST TEST STRP test blood sugar three times daily dx: 250.00 GLUCOSE BLOOD 65301309168 Active Tu Landeros MD Active ACCU-CHEK FASTCLIX LANCETS MISC Use to check bloodsugar three times daily as needed LANCETS 45097092506 No Longer Active Tu Landeros MD Active ACCU-CHEK KEYONA PLUS STRP Use for testing bloodsugars three times daily as needed GLUCOSE BLOOD 41448166093 No Longer Active Tu Landeros MD Active ACCU-CHEK KEYONA PLUS W/DEVICE KIT Use for testing bloodsugars three times daily as needed BLOOD GLUCOSE MONITORING SUPPL 56273276397 No Longer Active Tu Landeros MD Active SPIRONOLACTONE 25 MG TAB 0.5 tablet by mouth daily SPIRONOLACTONE 75706090808 No Longer Active Tu Landeros MD Active ALPRAZOLAM 0.5 MG TABS 1 tab every 6hrs as needed ALPRAZOLAM 66902947297 No Longer Active Tu Landeros MD Active B-12 100 MCG TABS Take one by mouth daily CYANOCOBALAMIN 05393595447 Active Tu Landeros MD Active AUGMENTIN 875-125 MG TAB 1 tab by mouth twice daily with food AMOXICILLIN-POT CLAVULANATE 79280986946 No Longer Active Tu Landeros MD Active PREDNISONE 20 MG TAB 2 tabs daily for 3 days, 1 tab daily for 3 days, 1/2 tab daily for 2 days PREDNISONE 34336423720 No Longer Active Tu Landeros MD Active XANAX 0.5 MG TABS 1 tablet every 6 hrs prn ALPRAZOLAM 78738641509 No Longer Active Tu Landeros MD Active PREDNISONE 20 MG TAB 2 tabs daily for 3 days, 1 tab daily for 3 days, 1/2 tab daily for 2 days PREDNISONE 14409949931 No Longer Active Tu Landeros MD Active TRIAMCINOLONE ACETONIDE 0.1 % OINT Apply to affected areas TID for up to 2 weeks TRIAMCINOLONE ACETONIDE 92173493241 No Longer Active Tu Landeros MD Active LORTAB 5 5-500 MG TABS 1/2 to 1 tablet by mouth every 4 hours as needed for pain HYDROCODONE-ACETAMINOPHEN 80685169259 No Longer Active Tu Landeros MD Active MULTIVITAMINS TABS Take one by mouth daily MULTIPLE VITAMIN 19435215572 No Longer Active Tu Landeros MD Active MELATONIN 5 MG TABS Take one by mouth daily MELATONIN 98193778984 No Longer Active Tu Landeros MD Active SOMA 350 MG TAB 1 po q 6 hours prn spasm CARISOPRODOL 15028503365 No Longer Active Tu Landeros MD Active MECLIZINE HCL 25 MG CHEW TAB 1 four times a day as needed for dizziness 08/05 MECLIZINE HCL 82550501311 No Longer Active Fab Morales DO Active ANGEL BREEZE 2 TEST DISK test tid prn GLUCOSE BLOOD 09206632348 No Longer Active Negra Scott RN Active DICLOFENAC SODIUM 50 MG TBEC 1 tablet by mouth three times a day as needed DICLOFENAC SODIUM 72559909096 Active Tu Landeros MD Active REGLAN 10 MG TAB 1 po TID PRN [place] METOCLOPRAMIDE HCL 04037717104 No Longer Active Tu Landeros MD Active METFORMIN HCL 500 MG TABS 1 PO BID METFORMIN HCL 39306540317 No Longer Active Tu Landeros MD Active AMBIEN 10 MG TAB 1 tab by mouth at bedtime as needed for sleep ZOLPIDEM TARTRATE 24818582159 No Longer Active Tu Landeros MD Active FLUOXETINE HCL 40 MG CAPS 1 po q day FLUOXETINE HCL 73045064819 No Longer Active Mayra Decker Active FISH OIL 1000 MG CAPS Take one by mouth daily OMEGA-3 FATTY ACIDS 99092518946 Active Tu Landeros MD Active GLUCOSAMINE 500 MG TABS Take 2 tab po qd GLUCOSAMINE 25771190562 Active Tu Landeros MD Active TRILIPIX 135 MG CPDR 1 po qd CHOLINE FENOFIBRATE 00951790766 No Longer Active Tu Landeros MD Active ASPIRIN 81 MG CHEW TAB 1 tablet by mouth daily ASPIRIN 71251812684 Active Tu Landeros MD Active FUROSEMIDE 40 MG TAB 1 tablet by mouth daily FUROSEMIDE 54353621033 Active Tu Landeros MD Active REQUIP 2 MG TABS Take one tablet at bedtime prn ROPINIROLE HCL 51598795008 Active Tu Landeros MD Active KLOR-CON 10 10 MEQ CR-TABS TAKE 2 TABS DAILY POTASSIUM CHLORIDE 48331479400 Active Tu Landeros MD Active AMBIEN 10 MG TAB 1 tab by mouth at bedtime as needed for sleep AMBIEN 10 MG TAB 903210 ZOLPIDEM TARTRATE Inactive METFORMIN HCL 500 MG TABS 1 PO BID METFORMIN HCL 500 MG TABS 316488 METFORMIN HCL Inactive REGLAN 10 MG TAB 1 po TID PRN Nausea REGLAN 10 MG TAB 166258 METOCLOPRAMIDE HCL Inactive MECLIZINE HCL 25 MG CHEW TAB 1 four times a day as needed for dizziness 08/05 MECLIZINE HCL 25 MG CHEW TAB 216636 MECLIZINE HCL Inactive SOMA 350 MG TAB 1 po q 6 hours prn spasm SOMA 350 MG TAB 415411 CARISOPRODOL Inactive MELATONIN 5 MG TABS Take one by mouth daily MELATONIN 5 MG TABS 373100 MELATONIN Inactive MULTIVITAMINS TABS Take one by mouth daily MULTIVITAMINS TABS MULTIPLE VITAMIN Inactive LORTAB 5 5-500 MG TABS 1/2 to 1 tablet by mouth every 4 hours as needed for pain LORTAB 5 5-500 MG TABS HYDROCODONE- ACETAMINOPHEN Inactive XANAX 0.5 MG TABS 1 tablet every 6 hrs prn XANAX 0.5 MG TABS 557196 ALPRAZOLAM Inactive AUGMENTIN 875-125 MG TAB 1 tab by mouth twice daily with food AUGMENTIN 875-125 MG TAB 614884 AMOXICILLIN-POT CLAVULANATE Inactive ALPRAZOLAM 0.5 MG TABS 1 tab every 6hrs as needed ALPRAZOLAM 0.5 MG TABS 891782 ALPRAZOLAM Inactive SPIRONOLACTONE 25 MG TAB 0.5 tablet by mouth daily SPIRONOLACTONE 25 MG TAB 580475 SPIRONOLACTONE Inactive ACCU-CHEK KEYONA PLUS W/DEVICE KIT Use for testing bloodsugars three times daily as needed ACCU-CHEK KEYONA PLUS W/DEVICE KIT BLOOD GLUCOSE MONITORING SUPPL Inactive ACCU-CHEK KEYONA PLUS STRP Use for testing bloodsugars three times daily as needed ACCU-CHEK KEYONA PLUS STRP GLUCOSE BLOOD Inactive ACCU-CHEK FASTCLIX LANCETS MISC Use to check bloodsugar three times daily as needed ACCU-CHEK FASTCLIX LANCETS MISC 39850342564 LANCETS Inactive TRAMADOL HCL 50 MG TABS 1 tablets every 6 hours as needed for pain TRAMADOL HCL 50 MG TABS 074876 TRAMADOL HCL Inactive VENLAFAXINE HCL 75 MG TABS 1 po BID VENLAFAXINE HCL 75 MG TABS 178337 VENLAFAXINE HCL Inactive HYDROCODONE-ACETAMINOPHEN 5-500 MG TABS take one po Q 4-6 hours prn HYDROCODONE-ACETAMINOPHEN 5-500 MG TABS 194820 HYDROCODONE- ACETAMINOPHEN Inactive LORTAB 5 5-500 MG TABS 1/2 to 1 tablet by mouth every 4 hours as needed for pain LORTAB 5 5-500 MG TABS HYDROCODONE- ACETAMINOPHEN Inactive LAMISIL 250 MG TAB 1 po qd LAMISIL 250 MG TAB 972430 TERBINAFINE HCL Inactive VENLAFAXINE HCL 37.5 MG TABS 1 po BID VENLAFAXINE HCL 37.5 MG TABS 199579 VENLAFAXINE HCL Inactive CIPRO 500 MG TAB 1 tablet by mouth twice daily CIPRO 500 MG TAB 747903 CIPROFLOXACIN HCL Inactive VENLAFAXINE HCL 75 MG TABS 1 po BID VENLAFAXINE HCL 75 MG TABS 735582 VENLAFAXINE HCL Inactive SIMVASTATIN 40 MG TABS Take one by mouth daily SIMVASTATIN 40 MG TABS 647285 SIMVASTATIN Inactive OMEPRAZOLE 20 MG TBEC 1 PO 30 MIN BEFORE 1ST MEAL OMEPRAZOLE 20 MG TBEC 157481 OMEPRAZOLE Inactive FENOFIBRATE 145 MG TABS 1 po qd FENOFIBRATE 145 MG TABS 466490 FENOFIBRATE Inactive TRIAMCINOLONE ACETONIDE 0.1 % OINT Apply to affected areas TID for up to 2 weeks TRIAMCINOLONE ACETONIDE 0.1 % OINT 2830183 TRIAMCINOLONE ACETONIDE Inactive PREDNISONE 20 MG TAB 2 tabs daily for 3 days, 1 tab daily for 3 days, 1/2 tab daily for 2 days PREDNISONE 20 MG TAB 772526 PREDNISONE Inactive PREDNISONE 20 MG TAB 2 tabs daily for 3 days, 1 tab daily for 3 days, 1/2 tab daily for 2 days PREDNISONE 20 MG TAB 128864 PREDNISONE Inactive BACTRIM DS 800-160 MG TABS 1 po BID x 7 days BACTRIM DS 800-160 MG TABS SULFAMETHOXAZOLE-TRIMETHOPRIM Inactive Immunizations Vaccine Administration Date Value Standard Description Seasonal influenza vaccine, injectable, containing preservative, for > 3 years old (Afluria, FluLaval, Fluzone, Fluvirin, Fluarix, Agriflu(>=18 yo)) Fluzone (>3 yrs.) [[id number]] Influenza, seasonal, injectable influenza immunization (Flu Vax) has been administered 02/22/2012 influenza virus vaccine, unspecified formulation Seasonal influenza vaccine, injectable, containing preservative, for > 3 years old (Afluria, FluLaval, Fluzone, Fluvirin, Fluarix, Agriflu(>=18 yo)) Fluzone (>3 yrs.) [[id number]] Influenza, seasonal, injectable Vital Signs Date Name [...] Panel - Chemistry sodium, serum 139 mmol/L 947-164 9501/11/27 potassium, serum 4.9 mmol/L 3.5-5.2 chloride, serum [...] Panel - Chemistry sodium, serum 139 mmol/L 997-826 4432/11/22 potassium, serum 4.3 mmol/L 3.5-5.2 chloride, serum [...] HGBA1C - Chemistry sodium, serum 142 mmol/L 727-221 1886/10/22 potassium, serum 4.9 mmol/L 3.5-5.2 chloride, serum [...] 0.30 mg/dL 0.00-1.00 cholesterol, serum 139 mg/dL 606-056 6088/10/22 triglyceride, serum, fasting 168 mg/dL 30-200 HDL cholesterol, serum 40 mg/dL 32-96 LDL cholesterol, serum 65 mg/dL 0-130 hemoglobin A1C, blood, as % of total hemoglobin 6.2 % 4.3-6.0 sodium, serum 144 mmol/L 245-594 2053/04/16 potassium, serum 4.2 mmol/L 3.5-5.2 chloride, serum [...] 0.20 mg/dL 0.00-1.00 cholesterol, serum 133 mg/dL 226-612 4167/04/16 triglyceride, serum, fasting 142 mg/dL 30-200 HDL [...] mg/dL Encounters Code Encounter Date Provider Facility CPT-78948 Level 4 Est. Patient 09:45:25 CDT uT Landeros MD [facility] CPT-78279 Level 4 Est. Patient 09:05:20 RADIOACTIVITY TECHNICIAN Tu Landeros MD [facility] CPT-02866 Level 4 Est. Patient 14:09:06 CDT Tu Landeros MD [facility] CPT-50377 Level 3 Est. Patient 13:36:54 CDT Tu Landeros MD [facility] CPT-19076 Level 3 Est. Patient 08:59:14 CDT Tu Landeros MD [facility] CPT-79550 Level 3 Est. Patient 13:48:35 CDT Fab Morales DO [facility] CPT-64810 Level 4 Est. Patient 10:05:48 CDT Tu Landeros MD [facility] CPT-54844 Level 3 Est. Patient 13:38:42 CDT Marek BANKS [facility] CPT-97895 Level 5 Est. Patient 08:08:39 CDT Jerrica FRANCIS [facility] CPT-19720 Level 4 Est. Patient 14:23:38 CDT Tu Landeros MD [facility] CPT-88369 Level 3 Est. Patient 11:44:04 CDT Tu Landeros MD [facility] CPT-29945 Level 3 Est. Patient 11:03:20 RADIOACTIVITY TECHNICIAN Tu Landeros MD [facility] CPT-24738 Level 3 Est. Patient 11:03:14 RADIOACTIVITY TECHNICIAN Tu Landeros MD [facility] CPT-39048 Level 3 Est. Patient 12:42:49 CDT Tu Landeros MD [facility] CPT-98339 Level 3 Est. Patient 11:52:06 CDT Tu Landeros MD [facility] CPT-64268 Level 3 Est. Patient 13:58:11 CDT Tu Landeros MD [facility] CPT-33397 Level 3 Est. Patient 17:50:07 CDT Fab Morales DO [facility] CPT-76423 Level 3 Est. Patient 12:06:29 CDT Elvira Cervantes MD [facility] CPT-04258 Level 3 Est. Patient 15:50:32 CDT Tu Landeros MD [facility] CPT-44014 Level 4 Est. Patient 16:08:29 CDT Tu Landeros MD [facility] CPT-05307 Level 3 Est. Patient 16:04:19 CDT Tu Landeros MD [facility] CPT-38262 Level 3 Est. Patient 11:22:30 RADIOACTIVITY TECHNICIAN Tu Landeros MD [facility] CPT-07143 Level 4 Est. Patient 16:24:02 RADIOACTIVITY TECHNICIAN Tu Landeros MD [facility] CPT-46643 Level 3 Est. Patient 17:21:23 RADIOACTIVITY TECHNICIAN Tu Landeros MD [facility] Procedures Code Procedure Name Date Entry Date Standard Description CPT-OV Office Visit 15:45:11 CDT CPT-000 Give Zostavax 14:09:06 CDT CPT-37089 Administration single or combination vaccine inc oral 15 :19:04 CDT CPT-34843 Zoster Vaccine (Zostavax) 15:19:04 CDT CPT-11417 Administration single or combination vaccine inc oral 20 :51:03 CDT CPT-00038 Influenza split virus > age 3 20:51:03 CDT CPT-54045 No Charge Offi Visit 14:52:03 CDT CPT-OV Office Visit 14:57:43 CDT CPT-OV Office Visit 15:22:32 CDT CPT-16543 Administration single or combination vaccine inc oral 11 :33:15 CDT CPT-21636 Influenza split virus > age 3 11:33:15 CDT
--- OUTSIDE RECORDS SUMMARY | 2018-04-25 19:39 | XMS REPORT | Clinical Summary ---
Author Author Admin, SACHI Organization [facility] Address Unknown Phone Allergies, Adverse Reactions, Alerts [...] x 14 days start 09-28-13 CIPROFLOXACIN HCL 65820419899 Active Childwold Meeker Active ALIGN 4 MG CAPS 1 tid PROBIOTIC PRODUCT 11579886003 Active Gustavo Meeker Active BACTRIM DS 800-160 MG TABS 1 bid x 14 day start 09-28-13 SULFAMETHOXAZOLE-TRIMETHOPRIM 97184398334 Active Gustavo Norma Active GABAPENTIN 300 MG CAPS 1 tid GABAPENTIN 48276046399 Active Gustavo Meeker Active SUPER B COMPLEX/VITAMIN C TABS 1 qd B COMPLEX-C 60249755784 Active Childwold Norma Active TRILIPIX 135 MG CPDR 1 q hs CHOLINE FENOFIBRATE 80434508270 Active Tu Landeros MD Active FENOFIBRATE 145 MG TABS 1 po qd FENOFIBRATE 14005159378 No Longer Active Gustavo Hoffeau Active OMEPRAZOLE 20 MG TBEC 1 PO 30 MIN BEFORE 1ST MEAL OMEPRAZOLE 15385597019 No Longer Active Gustavo Green Active SIMVASTATIN 40 MG TABS Take one by mouth daily SIMVASTATIN 04001839499 No Longer Active Gustavo Hoffeau Active GABAPENTIN 100 MG CAPS 1 po bid GABAPENTIN 42714471261 Active Childwold Norma Active CARVEDILOL 12.5 MG TABS Take 1 by mouth 30 min. before first meal CARVEDILOL 14546362108 Active Gustavo Bermeou Active VENLAFAXINE HCL 37.5 MG TABS 1 bid VENLAFAXINE HCL 69378115908 Active Gustavowin Bermeou Active VENLAFAXINE HCL 75 MG TABS 1 po BID VENLAFAXINE HCL 20052794262 No Longer Active Gustavo Norma Active HYDROCODONE-ACETAMINOPHEN 5-325 MG TABS 1 tab by mouth every 6 hours as needed for pain HYDROCODONE-ACETAMINOPHEN 50954706064 Active Tu Landeros MD Active METFORMIN HCL 500 MG TB24 1.5 po BID METFORMIN HCL 04533434037 Active Tu Landeros MD Active CIPRO 500 MG TAB 1 tablet by mouth twice daily CIPROFLOXACIN HCL 98634221245 No Longer Active Tu Landeros MD Active VENLAFAXINE HCL 37.5 MG TABS 1 po BID VENLAFAXINE HCL 02685727773 No Longer Active Suze Corey RMA Active CVS STOOL SOFTENER 100 MG CAPS 1 tab daily DOCUSATE SODIUM 56217858124 Active Tu Landeros MD Active LAMISIL 250 MG TAB 1 po qd TERBINAFINE HCL 87482258840 No Longer Active Tu Landeros MD Active LORTAB 5 5-500 MG TABS 1/2 to 1 tablet by mouth every 4 hours as needed for pain HYDROCODONE-ACETAMINOPHEN 92352039836 No Longer Active Tu Landeros MD Active ENALAPRIL MALEATE 20 MG TABS 1.5 po qd ENALAPRIL MALEATE 48841777036 Active Tu Landeros MD Active HYDROCODONE-ACETAMINOPHEN 5-500 MG TABS take one po Q 4-6 hours prn HYDROCODONE-ACETAMINOPHEN 27707911366 No Longer Active Tu Landeros MD Active BACTRIM DS 800-160 MG TABS 1 po BID x 7 days SULFAMETHOXAZOLE-TRIMETHOPRIM 92633314451 No Longer Active Tu Landeros MD Active VENLAFAXINE HCL 75 MG TABS 1 po BID VENLAFAXINE HCL 50148353569 No Longer Active Elvira Cervantes MD PhD Active TRAMADOL HCL 50 MG TABS 1 tablets every 6 hours as needed for pain TRAMADOL HCL 39867774374 No Longer Active Tu Landeros MD Active TRUERESULT BLOOD GLUCOSE W/DEVICE KIT use to test blood sugar tid dx: 250.00 BLOOD GLUCOSE MONITORING SUPPL 98850844241 Active Tu Landeros MD Active TRUETEST TEST STRP test blood sugar three times daily dx: 250.00 GLUCOSE BLOOD 78139544791 Active Tu Landeros MD Active ACCU-CHEK FASTCLIX LANCETS MISC Use to check bloodsugar three times daily as needed LANCETS 86189944846 No Longer Active Tu Landeros MD Active ACCU-CHEK KEYONA PLUS STRP Use for testing bloodsugars three times daily as needed GLUCOSE BLOOD 75771860269 No Longer Active Tu Landeros MD Active ACCU-CHEK KEYONA PLUS W/DEVICE KIT Use for testing bloodsugars three times daily as needed BLOOD GLUCOSE MONITORING SUPPL 69158130997 No Longer Active Tu Landeros MD Active SPIRONOLACTONE 25 MG TAB 0.5 tablet by mouth daily SPIRONOLACTONE 41405311665 No Longer Active Tu Landeros MD Active ALPRAZOLAM 0.5 MG TABS 1 tab every 6hrs as needed ALPRAZOLAM 36543107227 No Longer Active Tu Landeros MD Active B-12 100 MCG TABS Take one by mouth daily CYANOCOBALAMIN 27354037889 Active Tu Landeros MD Active AUGMENTIN 875-125 MG TAB 1 tab by mouth twice daily with food AMOXICILLIN-POT CLAVULANATE 01097702908 No Longer Active Tu Landeros MD Active PREDNISONE 20 MG TAB 2 tabs daily for 3 days, 1 tab daily for 3 days, 1/2 tab daily for 2 days PREDNISONE 08738515778 No Longer Active Tu Landeros MD Active XANAX 0.5 MG TABS 1 tablet every 6 hrs prn ALPRAZOLAM 35015561794 No Longer Active Tu Landeros MD Active PREDNISONE 20 MG TAB 2 tabs daily for 3 days, 1 tab daily for 3 days, 1/2 tab daily for 2 days PREDNISONE 97761278405 No Longer Active Tu Landeros MD Active TRIAMCINOLONE ACETONIDE 0.1 % OINT Apply to affected areas TID for up to 2 weeks TRIAMCINOLONE ACETONIDE 39135356913 No Longer Active Tu Landeros MD Active LORTAB 5 5-500 MG TABS 1/2 to 1 tablet by mouth every 4 hours as needed for pain HYDROCODONE-ACETAMINOPHEN 82686859090 No Longer Active Tu Landeros MD Active MULTIVITAMINS TABS Take one by mouth daily MULTIPLE VITAMIN 07042493628 No Longer Active Tu Landeros MD Active MELATONIN 5 MG TABS Take one by mouth daily MELATONIN 32602631495 No Longer Active Tu Landeros MD Active SOMA 350 MG TAB 1 po q 6 hours prn spasm CARISOPRODOL 87159352852 No Longer Active Tu Landeros MD Active MECLIZINE HCL 25 MG CHEW TAB 1 four times a day as needed for dizziness 08/05 MECLIZINE HCL 42680962291 No Longer Active Fab Morales DO Active ANGEL BREEZE 2 TEST DISK test tid prn GLUCOSE BLOOD 71357852129 No Longer Active Negra Scott RN Active DICLOFENAC SODIUM 50 MG TBEC 1 tablet by mouth three times a day as needed DICLOFENAC SODIUM 44897611875 Active Tu Landeros MD Active REGLAN 10 MG TAB 1 po TID PRN Nausea METOCLOPRAMIDE HCL 92429945443 No Longer Active Tu Landeros MD Active METFORMIN HCL 500 MG TABS 1 PO BID METFORMIN HCL 98527546022 No Longer Active Tu Landeros MD Active AMBIEN 10 MG TAB 1 tab by mouth at bedtime as needed for sleep ZOLPIDEM TARTRATE 17154874055 No Longer Active Tu Landeros MD Active FLUOXETINE HCL 40 MG CAPS 1 po q day FLUOXETINE HCL 02644408302 No Longer Active Mayra [place] Active FISH OIL 1000 MG CAPS Take one by mouth daily OMEGA-3 FATTY ACIDS 59932315843 Active Tu Landeros MD Active GLUCOSAMINE 500 MG TABS Take 2 tab po qd GLUCOSAMINE 36126118277 Active Tu Landeros MD Active TRILIPIX 135 MG CPDR 1 po qd CHOLINE FENOFIBRATE 97917285088 No Longer Active Tu Landeros MD Active ASPIRIN 81 MG CHEW TAB 1 tablet by mouth daily ASPIRIN 63953666128 Active Tu Landeros MD Active FUROSEMIDE 40 MG TAB 1 tablet by mouth daily FUROSEMIDE 77777326593 Active Tu Landeros MD Active REQUIP 2 MG TABS Take one tablet at bedtime prn ROPINIROLE HCL 08137262787 Active Tu Landeros MD Active KLOR-CON 10 10 MEQ CR-TABS TAKE 2 TABS DAILY POTASSIUM CHLORIDE 93536765786 Active Tu Landeros MD Active AMBIEN 10 MG TAB 1 tab by mouth at bedtime as needed for sleep AMBIEN 10 MG TAB 956352 ZOLPIDEM TARTRATE Inactive METFORMIN HCL 500 MG TABS 1 PO BID METFORMIN HCL 500 MG TABS 653462 METFORMIN HCL Inactive REGLAN 10 MG TAB 1 po TID PRN Nausea REGLAN 10 MG TAB 526091 METOCLOPRAMIDE HCL Inactive MECLIZINE HCL 25 MG CHEW TAB 1 four times a day as needed for dizziness 08/05 MECLIZINE HCL 25 MG CHEW TAB 411899 MECLIZINE HCL Inactive SOMA 350 MG TAB 1 po q 6 hours prn spasm SOMA 350 MG TAB 790703 CARISOPRODOL Inactive MELATONIN 5 MG TABS Take one by mouth daily MELATONIN 5 MG TABS 891018 MELATONIN Inactive MULTIVITAMINS TABS Take one by mouth daily MULTIVITAMINS TABS MULTIPLE VITAMIN Inactive LORTAB 5 5-500 MG TABS 1/2 to 1 tablet by mouth every 4 hours as needed for pain LORTAB 5 5-500 MG TABS HYDROCODONE- ACETAMINOPHEN Inactive XANAX 0.5 MG TABS 1 tablet every 6 hrs prn XANAX 0.5 MG TABS 938766 ALPRAZOLAM Inactive AUGMENTIN 875-125 MG TAB 1 tab by mouth twice daily with food AUGMENTIN 875-125 MG TAB 335171 AMOXICILLIN-POT CLAVULANATE Inactive ALPRAZOLAM 0.5 MG TABS 1 tab every 6hrs as needed ALPRAZOLAM 0.5 MG TABS 328058 ALPRAZOLAM Inactive SPIRONOLACTONE 25 MG TAB 0.5 tablet by mouth daily SPIRONOLACTONE 25 MG TAB 131082 SPIRONOLACTONE Inactive ACCU-CHEK KEYONA PLUS W/DEVICE KIT Use for testing bloodsugars three times daily as needed ACCU-CHEK KEYONA PLUS W/DEVICE KIT BLOOD GLUCOSE MONITORING SUPPL Inactive ACCU-CHEK KEYONA PLUS STRP Use for testing bloodsugars three times daily as needed ACCU-CHEK KEYONA PLUS STRP GLUCOSE BLOOD Inactive ACCU-CHEK FASTCLIX LANCETS MISC Use to check bloodsugar three times daily as needed ACCU-CHEK FASTCLIX LANCETS MISC 71012934745 LANCETS Inactive TRAMADOL HCL 50 MG TABS 1 tablets every 6 hours as needed for pain TRAMADOL HCL 50 MG TABS 768936 TRAMADOL HCL Inactive VENLAFAXINE HCL 75 MG TABS 1 po BID VENLAFAXINE HCL 75 MG TABS 211023 VENLAFAXINE HCL Inactive HYDROCODONE-ACETAMINOPHEN 5-500 MG TABS take one po Q 4-6 hours prn HYDROCODONE-ACETAMINOPHEN 5-500 MG TABS HYDROCODONE- ACETAMINOPHEN Inactive LORTAB 5 5-500 MG TABS 1/2 to 1 tablet by mouth every 4 hours as needed for pain LORTAB 5 5-500 MG TABS HYDROCODONE- ACETAMINOPHEN Inactive LAMISIL 250 MG TAB 1 po qd LAMISIL 250 MG TAB 932062 TERBINAFINE HCL Inactive VENLAFAXINE HCL 37.5 MG TABS 1 po BID VENLAFAXINE HCL 37.5 MG TABS 414400 VENLAFAXINE HCL Inactive CIPRO 500 MG TAB 1 tablet by mouth twice daily CIPRO 500 MG TAB 702643 CIPROFLOXACIN HCL Inactive VENLAFAXINE HCL 75 MG TABS 1 po BID VENLAFAXINE HCL 75 MG TABS 667502 VENLAFAXINE HCL Inactive SIMVASTATIN 40 MG TABS Take one by mouth daily SIMVASTATIN 40 MG TABS 437893 SIMVASTATIN Inactive OMEPRAZOLE 20 MG TBEC 1 PO 30 MIN BEFORE 1ST MEAL OMEPRAZOLE 20 MG TBEC 895870 OMEPRAZOLE Inactive FENOFIBRATE 145 MG TABS 1 po qd FENOFIBRATE 145 MG TABS 062880 FENOFIBRATE Inactive TRIAMCINOLONE ACETONIDE 0.1 % OINT Apply to affected areas TID for up to 2 weeks TRIAMCINOLONE ACETONIDE 0.1 % OINT 8196331 TRIAMCINOLONE ACETONIDE Inactive PREDNISONE 20 MG TAB 2 tabs daily for 3 days, 1 tab daily for 3 days, 1/2 tab daily for 2 days PREDNISONE 20 MG TAB 769330 PREDNISONE Inactive PREDNISONE 20 MG TAB 2 tabs daily for 3 days, 1 tab daily for 3 days, 1/2 tab daily for 2 days PREDNISONE 20 MG TAB 592580 PREDNISONE Inactive BACTRIM DS 800-160 MG TABS 1 po BID x 7 days BACTRIM DS 800-160 MG TABS SULFAMETHOXAZOLE-TRIMETHOPRIM Inactive Immunizations Vaccine Administration Date Value Standard Description Seasonal influenza vaccine, injectable, containing preservative, for > 3 years old (Afluria, FluLaval, Fluzone, Fluvirin, Fluarix, Agriflu(>=18 yo)) Fluzone (>3 yrs.) [[id number]] Influenza, seasonal, injectable influenza immunization (Flu Vax) has been administered 02/22/2012 influenza virus vaccine, unspecified formulation Seasonal influenza vaccine, injectable, containing preservative, for > 3 years old (Afluria, FluLaval, Fluzone, Fluvirin, Fluarix, Agriflu(>=18 yo)) Fluzone (>3 yrs.) [[id number]] Influenza, seasonal, injectable Vital Signs Date Name [...] E&M - 3141-9 317 [lb_av] Weight Measured Diagnostic Results Date Name Value Unit Range Description Lab Report: Basic Metabolic Panel - Chemistry sodium, serum 139 mmol/L 856-261 8353/11/27 potassium, serum 4.9 mmol/L 3.5-5.2 chloride, serum [...] Panel - Chemistry sodium, serum 139 mmol/L 392-789 8464/11/22 potassium, serum 4.3 mmol/L 3.5-5.2 chloride, serum [...] HGBA1C - Chemistry sodium, serum 142 mmol/L 192-515 0890/10/22 potassium, serum 4.9 mmol/L 3.5-5.2 chloride, serum [...] 0.30 mg/dL 0.00-1.00 cholesterol, serum 139 mg/dL 771-748 5385/10/22 triglyceride, serum, fasting 168 mg/dL 30-200 HDL cholesterol, serum 40 mg/dL 32-96 LDL cholesterol, serum 65 mg/dL 0-130 hemoglobin A1C, blood, as % of total hemoglobin 6.2 % 4.3-6.0 sodium, serum 144 mmol/L 223-460 1667/04/16 potassium, serum 4.2 mmol/L 3.5-5.2 chloride, serum [...] 0.20 mg/dL 0.00-1.00 cholesterol, serum 133 mg/dL 435-669 3092/04/16 triglyceride, serum, fasting 142 mg/dL 30-200 HDL [...] mg/dL Encounters Code Encounter Date Provider Facility CPT-64280 Level 4 Est. Patient 09:45:25 CDT Tu Landeros MD [facility] CPT-95231 Level 4 Est. Patient 09:05:20 HAT CLEANER Tu Landeros MD [facility] CPT-33510 Level 4 Est. Patient 14:09:06 CDT Tu Landeros MD [facility] CPT-91828 Level 3 Est. Patient 13:36:54 CDT Tu Landeros MD [facility] CPT-51633 Level 3 Est. Patient 08:59:14 CDT Tu Landeros MD [facility] CPT-41688 Level 3 Est. Patient 13:48:35 CDT Fab Morales DO [facility] CPT-89795 Level 4 Est. Patient 10:05:48 CDT Tu Landeros MD [facility] CPT-78951 Level 3 Est. Patient 13:38:42 CDT Marek BANKS [facility] CPT-74988 Level 5 Est. Patient 08:08:39 CDT Jerrica Hopkins TITO [facility] CPT-62226 Level 4 Est. Patient 14:23:38 CDT Tu Landeros MD [facility] CPT-90233 Level 3 Est. Patient 11:44:04 CDT Tu Landeros MD [facility] CPT-53300 Level 3 Est. Patient 11:03:20 HAT CLEANER Tu Landeros MD [facility] CPT-88156 Level 3 Est. Patient 11:03:14 HAT CLEANER Tu Landeros MD [facility] CPT-35299 Level 3 Est. Patient 12:42:49 CDT Tu Landeros MD [facility] CPT-15945 Level 3 Est. Patient 11:52:06 CDT Tu Landeros MD [facility] CPT-50034 Level 3 Est. Patient 13:58:11 CDT Tu Landeros MD [facility] CPT-16726 Level 3 Est. Patient 17:50:07 CDT Fab Morales DO [facility] CPT-05551 Level 3 Est. Patient 12:06:29 CDT Elvira Cervantes MD PhD [facility] CPT-13078 Level 3 Est. Patient 15:50:32 CDT Tu Landeros MD [facility] CPT-15556 Level 4 Est. Patient 16:08:29 CDT Tu Landeros MD [facility] CPT-96393 Level 3 Est. Patient 16:04:19 CDT Tu Landeros MD [facility] CPT-12971 Level 3 Est. Patient 11:22:30 HAT CLEANER Tu Landeros MD [facility] CPT-80501 Level 4 Est. Patient 16:24:02 HAT CLEANER Tu Landeros MD [facility] CPT-31060 Level 3 Est. Patient 17:21:23 HAT CLEANER Tu Landeros MD [facility] Procedures Code Procedure Name Date Entry Date Standard Description CPT-OV Office Visit 15:45:11 CDT CPT-000 Give Zostavax 14:09:06 CDT CPT-44988 Administration single or combination vaccine inc oral 15 :19:04 CDT CPT-24180 Zoster Vaccine (Zostavax) 15:19:04 CDT CPT-67785 Administration single or combination vaccine inc oral 20 :51:03 CDT CPT-76978 Influenza split virus > age 3 20:51:03 CDT CPT-63355 No Charge Offi Visit 14:52:03 CDT CPT-OV Office Visit 14:57:43 CDT CPT-OV Office Visit 15:22:32 CDT CPT-84186 Administration single or combination vaccine inc oral 11 :33:15 CDT CPT-98395 Influenza split virus > age 3 11:33:15 CDT
--- OUTSIDE RECORDS SUMMARY | 2018-04-25 19:40 | XMS REPORT | Clinical Summary ---
Author Author Admin, SACHI Clemons [facility] Address Unknown Phone Unavailable Allergies, Adverse [...] hours as needed for pain TRAMADOL HCL 27434403676 Active Tu Landeros MD Active HYDROCODONE-ACETAMINOPHEN 5-325 MG TABS 1 tab by mouth every 6 hours as needed for pain HYDROCODONE-ACETAMINOPHEN 15196403931 No Longer Active Tu Landeros MD Active OMEPRAZOLE 20 MG CPDR 1 po q a.m. OMEPRAZOLE 82285391640 Active Tu Landeros MD Active GABAPENTIN 100 MG CAPS 1 po bid GABAPENTIN 66748092540 No Longer Active Tu Landeros MD Active B-12 100 MCG TABS Take one by mouth daily CYANOCOBALAMIN 50265499081 No Longer Active Tu Landeros MD Active CIPRO 500 MG TABS 1 bid x 14 days start 09-28-13 CIPROFLOXACIN HCL 78150424015 Active Tu Landeros MD Active GABAPENTIN 100 MG CAPS by mouth twice a day GABAPENTIN 33097234693 Active Tu Landeros MD Active BACTRIM DS 800-160 MG TABS 1 bid x 14 day start 09-28-13 SULFAMETHOXAZOLE-TRIMETHOPRIM 43903383470 No Longer Active Tu Landeros MD Active SIMVASTATIN 40 MG TABS 1 tab daily at bedtime SIMVASTATIN 43272258524 Active Tu Landeros MD Active CARVEDILOL 12.5 MG TABS 1 po BID CARVEDILOL 58034285210 Active Lesli Kellogg APRN Active ALIGN 4 MG CAPS 1 tid PROBIOTIC PRODUCT 82669164435 Active JASPREET Perez Active SUPER B COMPLEX/VITAMIN C TABS 1 qd B COMPLEX-C 75096997838 Active JASPREET Perez Active TRILIPIX 135 MG CPDR 1 q hs CHOLINE FENOFIBRATE 41869334622 Active Tu Landeros MD Active FENOFIBRATE 145 MG TABS 1 po qd FENOFIBRATE 43188896743 No Longer Active JASPREET Perez Active OMEPRAZOLE 20 MG TBEC 1 PO 30 MIN BEFORE 1ST MEAL OMEPRAZOLE 03692361367 No Longer Active JASPREET Perez Active SIMVASTATIN 40 MG TABS Take one by mouth daily SIMVASTATIN 95612797311 No Longer Active JASPREET Perez Active VENLAFAXINE HCL 37.5 MG TABS 1 bid VENLAFAXINE HCL 76692580821 Active Tu Landeros MD Active VENLAFAXINE HCL 75 MG TABS 1 po BID VENLAFAXINE HCL 39731016160 No Longer Active GustavoJASPREET Archer Active METFORMIN HCL 500 MG TB24 1.5 po BID METFORMIN HCL 27117184827 Active Tu Landeros MD Active CIPRO 500 MG TAB 1 tablet by mouth twice daily CIPROFLOXACIN HCL 03517545953 No Longer Active Tu Landeros MD Active VENLAFAXINE HCL 37.5 MG TABS 1 po BID VENLAFAXINE HCL 94042274942 No Longer Active Suzebianca Nicole RMA Active [employer] STOOL SOFTENER 100 MG CAPS 1 tab daily DOCUSATE SODIUM 12916282131 Active Tu Landeros MD Active LAMISIL 250 MG TAB 1 po qd TERBINAFINE HCL 91970458077 No Longer Active Tu Landeros MD Active LORTAB 5 5-500 MG TABS 1/2 to 1 tablet by mouth every 4 hours as needed for pain HYDROCODONE-ACETAMINOPHEN 31168046544 No Longer Active Tu Landeros MD Active ENALAPRIL MALEATE 20 MG TABS 1.5 po qd ENALAPRIL MALEATE 79540982988 Active Tu Landeros MD Active HYDROCODONE-ACETAMINOPHEN 5-500 MG TABS take one po Q 4-6 hours prn HYDROCODONE-ACETAMINOPHEN 35355437891 No Longer Active Tu Landeros MD Active BACTRIM DS 800-160 MG TABS 1 po BID x 7 days SULFAMETHOXAZOLE-TRIMETHOPRIM 26606062744 No Longer Active Tu Landeros MD Active VENLAFAXINE HCL 75 MG TABS 1 po BID VENLAFAXINE HCL 87288464693 No Longer Active Elvira Cervantes MD PhD Active TRAMADOL HCL 50 MG TABS 1 tablets every 6 hours as needed for pain TRAMADOL HCL 49127660534 No Longer Active Tu Landeros MD Active TRUERESULT BLOOD GLUCOSE W/DEVICE KIT use to test blood sugar tid dx: 250.00 BLOOD GLUCOSE MONITORING SUPPL 29136046712 Active Tu Landeros MD Active TRUETEST TEST STRP test blood sugar three times daily dx: 250.00 GLUCOSE BLOOD 54727991634 Active Tu Landeros MD Active ACCU-CHEK FASTCLIX LANCETS MISC Use to check bloodsugar three times daily as needed LANCETS 85661451731 No Longer Active Tu Landeros MD Active ACCU-CHEK KEYONA PLUS STRP Use for testing bloodsugars three times daily as needed GLUCOSE BLOOD 65364834142 No Longer Active Tu Landeros MD Active ACCU-CHEK KEYONA PLUS W/DEVICE KIT Use for testing bloodsugars three times daily as needed BLOOD GLUCOSE MONITORING SUPPL 95976798271 No Longer Active Tu Landeros MD Active SPIRONOLACTONE 25 MG TAB 0.5 tablet by mouth daily SPIRONOLACTONE 69835766777 No Longer Active Tu Landeros MD Active ALPRAZOLAM 0.5 MG TABS 1 tab every 6hrs as needed ALPRAZOLAM 50725057040 No Longer Active Tu Landeros MD Active AUGMENTIN 875-125 MG TAB 1 tab by mouth twice daily with food AMOXICILLIN-POT CLAVULANATE 55512733285 No Longer Active Tu Landeros MD Active PREDNISONE 20 MG TAB 2 tabs daily for 3 days, 1 tab daily for 3 days, 1/2 tab daily for 2 days PREDNISONE 22319398282 No Longer Active Tu Landeros MD Active XANAX 0.5 MG TABS 1 tablet every 6 hrs prn ALPRAZOLAM 16496878251 No Longer Active Tu Landeros MD Active PREDNISONE 20 MG TAB 2 tabs daily for 3 days, 1 tab daily for 3 days, 1/2 tab daily for 2 days PREDNISONE 72076346276 No Longer Active Tu Landeros MD Active TRIAMCINOLONE ACETONIDE 0.1 % OINT Apply to affected areas TID for up to 2 weeks TRIAMCINOLONE ACETONIDE 67307384229 No Longer Active Tu Landeros MD Active LORTAB 5 5-500 MG TABS 1/2 to 1 tablet by mouth every 4 hours as needed for pain HYDROCODONE-ACETAMINOPHEN 85217728563 No Longer Active Tu Landeros MD Active MULTIVITAMINS TABS Take one by mouth daily MULTIPLE VITAMIN 58373876033 No Longer Active Tu Landeros MD Active MELATONIN 5 MG TABS Take one by mouth daily MELATONIN 33519645029 No Longer Active Tu Landeros MD Active SOMA 350 MG TAB 1 po q 6 hours prn spasm CARISOPRODOL 78694400377 No Longer Active Tu Landeros MD Active MECLIZINE HCL 25 MG CHEW TAB 1 four times a day as needed for dizziness 08/05 MECLIZINE HCL 53571557700 No Longer Active Fab Morales DO Active ANGEL BREEZE 2 TEST DISK test tid prn GLUCOSE BLOOD 78401490170 No Longer Active Negra Scott RN Active DICLOFENAC SODIUM 50 MG TBEC 1 tablet by mouth three times a day as needed DICLOFENAC SODIUM 46071746299 Active Tu Landeros MD Active REGLAN 10 MG TAB 1 po TID PRN [place]ausea METOCLOPRAMIDE HCL 09593989957 No Longer Active Tu Landeros MD Active METFORMIN HCL 500 MG TABS 1 PO BID METFORMIN HCL 76512955155 No Longer Active Tu Landeros MD Active AMBIEN 10 MG TAB 1 tab by mouth at bedtime as needed for sleep ZOLPIDEM TARTRATE 11287548682 No Longer Active Tu Landeros MD Active FLUOXETINE HCL 40 MG CAPS 1 po q day FLUOXETINE HCL 85140777057 No Longer Active Mayra Brinson Active FISH OIL 1000 MG CAPS Take one by mouth daily OMEGA-3 FATTY ACIDS 73896677499 Active Tu Landeros MD Active GLUCOSAMINE 500 MG TABS Take 2 tab po qd GLUCOSAMINE 27777112065 Active Tu Landeros MD Active TRILIPIX 135 MG CPDR 1 po qd CHOLINE FENOFIBRATE 61687112612 No Longer Active Tu Landeros MD Active ASPIRIN 81 MG CHEW TAB 1 tablet by mouth daily ASPIRIN 81709045075 Active Tu Landeros MD Active FUROSEMIDE 40 MG TAB 1 tablet by mouth daily FUROSEMIDE 51748606333 Active Tu Landeros MD Active REQUIP 2 MG TABS Take one tablet at bedtime prn ROPINIROLE HCL 51975650631 Active Tu Landeros MD Active KLOR-CON 10 10 MEQ CR-TABS TAKE 2 TABS DAILY POTASSIUM CHLORIDE 41080722816 Active Lesli Kellogg SECRETARY Active AMBIEN 10 MG TAB 1 tab by mouth at bedtime as needed for sleep AMBIEN 10 MG TAB 319430 ZOLPIDEM TARTRATE Inactive METFORMIN HCL 500 MG TABS 1 PO BID METFORMIN HCL 500 MG TABS 058576 METFORMIN HCL Inactive REGLAN 10 MG TAB 1 po TID PRN Nausea REGLAN 10 MG TAB 022913 METOCLOPRAMIDE HCL Inactive MECLIZINE HCL 25 MG CHEW TAB 1 four times a day as needed for dizziness 08/05 MECLIZINE HCL 25 MG CHEW TAB 292249 MECLIZINE HCL Inactive SOMA 350 MG TAB 1 po q 6 hours prn spasm SOMA 350 MG TAB 347071 CARISOPRODOL Inactive MELATONIN 5 MG TABS Take one by mouth daily MELATONIN 5 MG TABS 781711 MELATONIN Inactive MULTIVITAMINS TABS Take one by mouth daily MULTIVITAMINS TABS MULTIPLE VITAMIN Inactive LORTAB 5 5-500 MG TABS 1/2 to 1 tablet by mouth every 4 hours as needed for pain LORTAB 5 5-500 MG TABS HYDROCODONE- ACETAMINOPHEN Inactive XANAX 0.5 MG TABS 1 tablet every 6 hrs prn XANAX 0.5 MG TABS 239410 ALPRAZOLAM Inactive AUGMENTIN 875-125 MG TAB 1 tab by mouth twice daily with food AUGMENTIN 875-125 MG TAB 425798 AMOXICILLIN-POT CLAVULANATE Inactive ALPRAZOLAM 0.5 MG TABS 1 tab every 6hrs as needed ALPRAZOLAM 0.5 MG TABS 795719 ALPRAZOLAM Inactive SPIRONOLACTONE 25 MG TAB 0.5 tablet by mouth daily SPIRONOLACTONE 25 MG TAB 315997 SPIRONOLACTONE Inactive ACCU-CHEK KEYONA PLUS W/DEVICE KIT Use for testing bloodsugars three times daily as needed ACCU-CHEK KEYONA PLUS W/DEVICE KIT BLOOD GLUCOSE MONITORING SUPPL Inactive ACCU-CHEK KEYONA PLUS STRP Use for testing bloodsugars three times daily as needed ACCU-CHEK KEYONA PLUS STRP GLUCOSE BLOOD Inactive ACCU-CHEK FASTCLIX LANCETS MISC Use to check bloodsugar three times daily as needed ACCU-CHEK FASTCLIX LANCETS MISC 66401336818 LANCETS Inactive TRAMADOL HCL 50 MG TABS 1 tablets every 6 hours as needed for pain TRAMADOL HCL 50 MG TABS 682115 TRAMADOL HCL Inactive VENLAFAXINE HCL 75 MG TABS 1 po BID VENLAFAXINE HCL 75 MG TABS 421631 VENLAFAXINE HCL Inactive HYDROCODONE-ACETAMINOPHEN 5-500 MG TABS take one po Q 4-6 hours prn HYDROCODONE-ACETAMINOPHEN 5-500 MG TABS HYDROCODONE- ACETAMINOPHEN Inactive LORTAB 5 5-500 MG TABS 1/2 to 1 tablet by mouth every 4 hours as needed for pain LORTAB 5 5-500 MG TABS HYDROCODONE- ACETAMINOPHEN Inactive LAMISIL 250 MG TAB 1 po qd LAMISIL 250 MG TAB 154478 TERBINAFINE HCL Inactive VENLAFAXINE HCL 37.5 MG TABS 1 po BID VENLAFAXINE HCL 37.5 MG TABS 151247 VENLAFAXINE HCL Inactive CIPRO 500 MG TAB 1 tablet by mouth twice daily CIPRO 500 MG TAB 318567 CIPROFLOXACIN HCL Inactive VENLAFAXINE HCL 75 MG TABS 1 po BID VENLAFAXINE HCL 75 MG TABS 565130 VENLAFAXINE HCL Inactive SIMVASTATIN 40 MG TABS Take one by mouth daily SIMVASTATIN 40 MG TABS 903279 SIMVASTATIN Inactive OMEPRAZOLE 20 MG TBEC 1 PO 30 MIN BEFORE 1ST MEAL OMEPRAZOLE 20 MG TBEC 504992 OMEPRAZOLE Inactive FENOFIBRATE 145 MG TABS 1 po qd FENOFIBRATE 145 MG TABS 756499 FENOFIBRATE Inactive BACTRIM DS 800-160 MG TABS 1 bid x 14 day start 09-28-13 BACTRIM DS 800-160 MG TABS SULFAMETHOXAZOLE-TRIMETHOPRIM Inactive B-12 100 MCG TABS Take one by mouth daily B-12 100 MCG TABS CYANOCOBALAMIN Inactive GABAPENTIN 100 MG CAPS 1 po bid GABAPENTIN 100 MG CAPS 417041 GABAPENTIN Inactive HYDROCODONE-ACETAMINOPHEN 5-325 MG TABS 1 tab by mouth every 6 hours as needed for pain HYDROCODONE-ACETAMINOPHEN 5-325 MG TABS 737041 HYDROCODONE-ACETAMINOPHEN Inactive TRIAMCINOLONE ACETONIDE 0.1 % OINT Apply to affected areas TID for up to 2 weeks TRIAMCINOLONE ACETONIDE 0.1 % OINT 6499765 TRIAMCINOLONE ACETONIDE Inactive PREDNISONE 20 MG TAB 2 tabs daily for 3 days, 1 tab daily for 3 days, 1/2 tab daily for 2 days PREDNISONE 20 MG TAB 697440 PREDNISONE Inactive PREDNISONE 20 MG TAB 2 tabs daily for 3 days, 1 tab daily for 3 days, 1/2 tab daily for 2 days PREDNISONE 20 MG TAB 740348 PREDNISONE Inactive BACTRIM DS 800-160 MG TABS 1 po BID x 7 days BACTRIM DS 800-160 MG TABS SULFAMETHOXAZOLE-TRIMETHOPRIM Inactive Immunizations Vaccine Administration Date Value Standard Description Seasonal influenza vaccine, injectable, containing preservative, for > 3 years old (Afluria, FluLaval, Fluzone, Fluvirin, Fluarix, Agriflu(>=18 yo)) Fluzone (>3 yrs.) [[id number]] Influenza, seasonal, injectable influenza immunization (Flu Vax) has been administered 02/22/2012 influenza virus vaccine, unspecified formulation Seasonal influenza vaccine, injectable, containing preservative, for > 3 years old (Afluria, FluLaval, Fluzone, Fluvirin, Fluarix, Agriflu(>=18 yo)) Fluzone (>3 yrs.) [[id number]] Influenza, seasonal, injectable Vital Signs Date Name [...] Panel - Chemistry sodium, serum 139 mmol/L 897-199 6084/11/27 potassium, serum 4.9 mmol/L 3.5-5.2 chloride, serum [...] Panel - Chemistry sodium, serum 139 mmol/L 440-571 2823/11/22 potassium, serum 4.3 mmol/L 3.5-5.2 chloride, serum [...] HGBA1C - Chemistry sodium, serum 144 mmol/L 965-346 5153/04/16 potassium, serum 4.2 mmol/L 3.5-5.2 chloride, serum [...] 0.20 mg/dL 0.00-1.00 cholesterol, serum 133 mg/dL 918-067 2459/04/16 triglyceride, serum, fasting 142 mg/dL 30-200 HDL [...] mg/dL Encounters Code Encounter Date Provider Facility CPT-89026 Level 4 Est. 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 Patient 09:45:25 CDT Tu Landeros MD [facility] CPT-30036 Level 4 Est. Patient 09:05:20 SENIOR TERADATA DEVELOPER Tu Landeros MD [facility] CPT-81851 Level 4 Est. Patient 14:09:06 CDT Tu Landeros MD [facility] CPT-11974 Level 3 Est. Patient 13:36:54 CDT Tu Landeros MD [facility] CPT-24096 Level 3 Est. Patient 08:59:14 CDT Tu Landeros MD [facility] CPT-33263 Level 3 Est. Patient 13:48:35 CDT Fab Morales DO [facility] CPT-35720 Level 4 Est. Patient 10:05:48 CDT Tu Landeros MD [facility] CPT-50686 Level 3 Est. Patient 13:38:42 CDT Marek BANKS [facility] CPT-03011 Level 5 Est. Patient 08:08:39 CDT Jerrica Hopkins TITO [facility] CPT-77453 Level 4 Est. Patient 14:23:38 CDT Tu Landeros MD [facility] CPT-08074 Level 3 Est. Patient 11:44:04 CDT Tu Landeros MD [facility] CPT-75828 Level 3 Est. Patient 11:03:20 SENIOR TERADATA DEVELOPER Tu Landeros MD [facility] CPT-75719 Level 3 Est. Patient 11:03:14 SENIOR TERADATA DEVELOPER Tu Landeros MD [facility] CPT-36673 Level 3 Est. Patient 12:42:49 CDT Tu Landeros MD [facility] CPT-41254 Level 3 Est. Patient 11:52:06 CDT Tu Landeros MD [facility] CPT-03462 Level 3 Est. Patient 13:58:11 CDT Tu Landeros MD [facility] CPT-94605 Level 3 Est. Patient 17:50:07 CDT Fab Morales DO [facility] CPT-69253 Level 3 Est. Patient 12:06:29 CDT Elvira Cervantes MD PhD [facility] CPT-43760 Level 3 Est. Patient 15:50:32 CDT Tu Landeros MD [facility] CPT-30119 Level 4 Est. Patient 16:08:29 CDT Tu Landeros MD [facility] CPT-16209 Level 3 Est. Patient 16:04:19 CDT Tu Landeros MD [facility] CPT-78116 Level 3 Est. Patient 11:22:30 SENIOR TERADATA DEVELOPER Tu Landeros MD [facility] CPT-14854 Level 4 Est. Patient 16:24:02 SENIOR TERADATA DEVELOPER Tu Landeros MD [facility] CPT-71847 Level 3 Est. Patient 17:21:23 SENIOR TERADATA DEVELOPER Tu Landeros MD [facility] Procedures Code Procedure Name Date Entry Date Standard Description CPT-OV Office Visit 15:45:11 CDT CPT-000 Give Zostavax 14:09:06 CDT CPT-04355 Administration single or combination vaccine inc oral 15 :19:04 CDT CPT-38100 Zoster Vaccine (Zostavax) 15:19:04 CDT CPT-45789 Administration single or combination vaccine inc oral 20 :51:03 CDT CPT-10152 Influenza split virus > age 3 20:51:03 CDT CPT-30176 No Charge Offi Visit 14:52:03 CDT CPT-OV Office Visit 14:57:43 CDT CPT-OV Office Visit 15:22:32 CDT CPT-13918 Administration single or combination vaccine inc oral 11 :33:15 CDT CPT-96681 Influenza split virus > age 3 11:33:15 CDT
--- OUTSIDE RECORDS SUMMARY | 2018-04-25 19:42 | XMS REPORT | Clinical Summary ---
Author Author Admin, SACHI Organization [facility] Address Unknown Phone Allergies, Adverse Reactions, Alerts [...] 6 hours as needed for pain HYDROCODONE-ACETAMINOPHEN 94149928292 Active Tu Landeros MD Active METFORMIN HCL 500 MG TB24 1.5 po BID METFORMIN HCL 85195741234 Active Tu Landeros MD Active GABAPENTIN 100 MG CAPS 3 po tid GABAPENTIN 73900025698 Active Tu Landeros MD Active CIPRO 500 MG TAB 1 tablet by mouth twice daily CIPROFLOXACIN HCL 10864148732 No Longer Active Tu Landeros MD Active VENLAFAXINE HCL 75 MG TABS 1 po BID VENLAFAXINE HCL 13759356051 Active Tu Landeros MD Active VENLAFAXINE HCL 37.5 MG TABS 1 po BID VENLAFAXINE HCL 50481100097 No Longer Active Suze Corey RMA Active [employer] STOOL SOFTENER 100 MG CAPS 1 tab daily DOCUSATE SODIUM 99397244990 Active Tu Landeros MD Active LAMISIL 250 MG TAB 1 po qd TERBINAFINE HCL 93169768975 No Longer Active Tu Landeros MD Active LORTAB 5 5-500 MG TABS 1/2 to 1 tablet by mouth every 4 hours as needed for pain HYDROCODONE-ACETAMINOPHEN 29983203031 No Longer Active Tu Landeros MD Active FENOFIBRATE 145 MG TABS 1 po qd FENOFIBRATE 02921845030 Active Tu Landeros MD Active ENALAPRIL MALEATE 20 MG TABS 1.5 po qd ENALAPRIL MALEATE 84268424709 Active Tu Landeros MD Active HYDROCODONE-ACETAMINOPHEN 5-500 MG TABS take one po Q 4-6 hours prn HYDROCODONE-ACETAMINOPHEN 42227471375 No Longer Active Tu Landeros MD Active BACTRIM DS 800-160 MG TABS 1 po BID x 7 days SULFAMETHOXAZOLE-TRIMETHOPRIM 46073248029 No Longer Active Tu Landeros MD Active VENLAFAXINE HCL 75 MG TABS 1 po BID VENLAFAXINE HCL 60819987282 No Longer Active Elvira Cervantes MD PhD Active TRUERESULT BLOOD GLUCOSE W/DEVICE KIT use to test blood sugar tid dx: 250.00 BLOOD GLUCOSE MONITORING SUPPL 45155936273 Active Tu Landeros MD Active TRUETEST TEST STRP test blood sugar three times daily dx: 250.00 GLUCOSE BLOOD 86791763488 Active Tu Landeros MD Active ACCU-CHEK FASTCLIX LANCETS MISC Use to check bloodsugar three times daily as needed LANCETS 84726733683 No Longer Active Tu Landeros MD Active ACCU-CHEK KEYONA PLUS STRP Use for testing bloodsugars three times daily as needed GLUCOSE BLOOD 16914060614 No Longer Active Tu Landeros MD Active ACCU-CHEK KEYONA PLUS W/DEVICE KIT Use for testing bloodsugars three times daily as needed BLOOD GLUCOSE MONITORING SUPPL 84180914661 No Longer Active Tu Landeros MD Active SPIRONOLACTONE 25 MG TAB 0.5 tablet by mouth daily SPIRONOLACTONE 42933431051 No Longer Active Tu Landeros MD Active TRAMADOL HCL 50 MG TABS 1 tablets every 6 hours as needed for pain TRAMADOL HCL 13333784033 Active Tu Landeros MD Active ALPRAZOLAM 0.5 MG TABS 1 tab every 6hrs as needed ALPRAZOLAM 39596876936 No Longer Active Tu Landeros MD Active B-12 100 MCG TABS Take one by mouth daily CYANOCOBALAMIN 53196344586 Active Tu Landeros MD Active AUGMENTIN 875-125 MG TAB 1 tab by mouth twice daily with food AMOXICILLIN-POT CLAVULANATE 42286173976 No Longer Active Tu Landeros MD Active PREDNISONE 20 MG TAB 2 tabs daily for 3 days, 1 tab daily for 3 days, 1/2 tab daily for 2 days PREDNISONE 48566413794 No Longer Active Tu Landeros MD Active XANAX 0.5 MG TABS 1 tablet every 6 hrs prn ALPRAZOLAM 11321034891 No Longer Active Tu Landeros MD Active PREDNISONE 20 MG TAB 2 tabs daily for 3 days, 1 tab daily for 3 days, 1/2 tab daily for 2 days PREDNISONE 14143775132 No Longer Active uT Landeros MD Active TRIAMCINOLONE ACETONIDE 0.1 % OINT Apply to affected areas TID for up to 2 weeks TRIAMCINOLONE ACETONIDE 01915368694 No Longer Active Tu Landeros MD Active LORTAB 5 5-500 MG TABS 1/2 to 1 tablet by mouth every 4 hours as needed for pain HYDROCODONE-ACETAMINOPHEN 29416531502 No Longer Active Tu Landeros MD Active MULTIVITAMINS TABS Take one by mouth daily MULTIPLE VITAMIN 64712763700 No Longer Active Tu Landeros MD Active MELATONIN 5 MG TABS Take one by mouth daily MELATONIN 55155869374 No Longer Active Tu Landeros MD Active SOMA 350 MG TAB 1 po q 6 hours prn spasm CARISOPRODOL 68685787227 No Longer Active Tu Landeros MD Active MECLIZINE HCL 25 MG CHEW TAB 1 four times a day as needed for dizziness 08/05 MECLIZINE HCL 10886758387 No Longer Active Fab Deann Andrew MCCORMACK Active ANGEL BREEZE 2 TEST DISK test tid prn GLUCOSE BLOOD 90365100666 No Longer Active Negra Scott MICHAEL Active DICLOFENAC SODIUM 50 MG TBEC 1 tablet by mouth three times a day as needed DICLOFENAC SODIUM 69432599588 Active Tu Landeros MD Active REGLAN 10 MG TAB 1 po TID PRN Nausea METOCLOPRAMIDE HCL 17109907067 No Longer Active Tu Landeros MD Active METFORMIN HCL 500 MG TABS 1 PO BID METFORMIN HCL 99741983304 No Longer Active Tu Landeros MD Active CARVEDILOL 12.5 MG TABS Take 1 by mouth twice a day CARVEDILOL 12964930472 Active Tu Landeros MD Active AMBIEN 10 MG TAB 1 tab by mouth at bedtime as needed for sleep ZOLPIDEM TARTRATE 75456139225 No Longer Active Tu Landeros MD Active FLUOXETINE HCL 40 MG CAPS 1 po q day FLUOXETINE HCL 40581145441 No Longer Active Mayra Hopkins Active FISH OIL 1000 MG CAPS Take one by mouth daily OMEGA-3 FATTY ACIDS 58365430513 Active Tu Landeros MD Active GLUCOSAMINE 500 MG TABS Take 2 tab po qd GLUCOSAMINE 03486423689 Active Tu Landeros MD Active TRILIPIX 135 MG CPDR 1 po qd CHOLINE FENOFIBRATE 65608983279 No Longer Active Tu Landeros MD Active ASPIRIN 81 MG CHEW TAB 1 tablet by mouth daily ASPIRIN 96204860736 Active Tu Landeros MD Active FUROSEMIDE 40 MG TAB 1 tablet by mouth daily FUROSEMIDE 31234524777 Active Tu Landeros MD Active REQUIP 2 MG TABS Take one tablet at bedtime prn ROPINIROLE HCL 75046622850 Active Tu Landeros MD Active SIMVASTATIN 40 MG TABS Take one by mouth daily SIMVASTATIN 92770743055 Active Tu Landeros MD Active KLOR-CON 10 10 MEQ CR-TABS TAKE 2 TABS DAILY POTASSIUM CHLORIDE 94521372922 Active Tu Landeros MD Active OMEPRAZOLE 20 MG TBEC 1 PO 30 MIN BEFORE 1ST MEAL OMEPRAZOLE 98050521366 Active Tu Landeros MD Active AMBIEN 10 MG TAB 1 tab by mouth at bedtime as needed for sleep AMBIEN 10 MG TAB 965760 ZOLPIDEM TARTRATE Inactive METFORMIN HCL 500 MG TABS 1 PO BID METFORMIN HCL 500 MG TABS 426789 METFORMIN HCL Inactive REGLAN 10 MG TAB 1 po TID PRN Nausea REGLAN 10 MG TAB 527386 METOCLOPRAMIDE HCL Inactive MECLIZINE HCL 25 MG CHEW TAB 1 four times a day as needed for dizziness 08/05 MECLIZINE HCL 25 MG CHEW TAB 451208 MECLIZINE HCL Inactive SOMA 350 MG TAB 1 po q 6 hours prn spasm SOMA 350 MG TAB 923715 CARISOPRODOL Inactive MELATONIN 5 MG TABS Take one by mouth daily MELATONIN 5 MG TABS 515884 MELATONIN Inactive MULTIVITAMINS TABS Take one by mouth daily MULTIVITAMINS TABS MULTIPLE VITAMIN Inactive LORTAB 5 5-500 MG TABS 1/2 to 1 tablet by mouth every 4 hours as needed for pain LORTAB 5 5-500 MG TABS HYDROCODONE- ACETAMINOPHEN Inactive XANAX 0.5 MG TABS 1 tablet every 6 hrs prn XANAX 0.5 MG TABS 704689 ALPRAZOLAM Inactive AUGMENTIN 875-125 MG TAB 1 tab by mouth twice daily with food AUGMENTIN 875-125 MG TAB 288876 AMOXICILLIN-POT CLAVULANATE Inactive ALPRAZOLAM 0.5 MG TABS 1 tab every 6hrs as needed ALPRAZOLAM 0.5 MG TABS 260681 ALPRAZOLAM Inactive SPIRONOLACTONE 25 MG TAB 0.5 tablet by mouth daily SPIRONOLACTONE 25 MG TAB 256168 SPIRONOLACTONE Inactive ACCU-CHEK KEYONA PLUS W/DEVICE KIT Use for testing bloodsugars three times daily as needed ACCU-CHEK KEYONA PLUS W/DEVICE KIT BLOOD GLUCOSE MONITORING SUPPL Inactive ACCU-CHEK KEYONA PLUS STRP Use for testing bloodsugars three times daily as needed ACCU-CHEK KEYONA PLUS STRP GLUCOSE BLOOD Inactive ACCU-CHEK FASTCLIX LANCETS MISC Use to check bloodsugar three times daily as needed ACCU-CHEK FASTCLIX LANCETS MISC 30871393383 LANCETS Inactive VENLAFAXINE HCL 75 MG TABS 1 po BID VENLAFAXINE HCL 75 MG TABS 334756 VENLAFAXINE HCL Inactive HYDROCODONE-ACETAMINOPHEN 5-500 MG TABS take one po Q 4-6 hours prn HYDROCODONE-ACETAMINOPHEN 5-500 MG TABS 593560 HYDROCODONE- ACETAMINOPHEN Inactive LORTAB 5 5-500 MG TABS 1/2 to 1 tablet by mouth every 4 hours as needed for pain LORTAB 5 5-500 MG TABS HYDROCODONE- ACETAMINOPHEN Inactive LAMISIL 250 MG TAB 1 po qd LAMISIL 250 MG TAB 617318 TERBINAFINE HCL Inactive VENLAFAXINE HCL 37.5 MG TABS 1 po BID VENLAFAXINE HCL 37.5 MG TABS 578863 VENLAFAXINE HCL Inactive CIPRO 500 MG TAB 1 tablet by mouth twice daily CIPRO 500 MG TAB 841158 CIPROFLOXACIN HCL Inactive TRIAMCINOLONE ACETONIDE 0.1 % OINT Apply to affected areas TID for up to 2 weeks TRIAMCINOLONE ACETONIDE 0.1 % OINT 3278657 TRIAMCINOLONE ACETONIDE Inactive PREDNISONE 20 MG TAB 2 tabs daily for 3 days, 1 tab daily for 3 days, 1/2 tab daily for 2 days PREDNISONE 20 MG TAB 240882 PREDNISONE Inactive PREDNISONE 20 MG TAB 2 tabs daily for 3 days, 1 tab daily for 3 days, 1/2 tab daily for 2 days PREDNISONE 20 MG TAB 943005 PREDNISONE Inactive BACTRIM DS 800-160 MG TABS 1 po BID x 7 days BACTRIM DS 800-160 MG TABS SULFAMETHOXAZOLE-TRIMETHOPRIM Inactive Immunizations Vaccine Administration Date Value Standard Description Seasonal influenza vaccine, injectable, containing preservative, for > 3 years old (Afluria, FluLaval, Fluzone, Fluvirin, Fluarix, Agriflu(>=18 yo)) Fluzone (>3 yrs.) [[id number]] Influenza, seasonal, injectable influenza immunization (Flu Vax) has been administered 02/22/2012 influenza virus vaccine, unspecified formulation Seasonal influenza vaccine, injectable, containing preservative, for > 3 years old (Afluria, FluLaval, Fluzone, Fluvirin, Fluarix, Agriflu(>=18 yo)) Fluzone (>3 yrs.) [[id number]] Influenza, seasonal, injectable Vital Signs Date Name [...] Panel - Chemistry sodium, serum 139 mmol/L 175-104 6139/11/27 potassium, serum 4.9 mmol/L 3.5-5.2 chloride, serum [...] Panel - Chemistry sodium, serum 139 mmol/L 307-516 8209/11/22 potassium, serum 4.3 mmol/L 3.5-5.2 chloride, serum [...] HGBA1C - Chemistry sodium, serum 144 mmol/L 865-242 6615/04/16 potassium, serum 4.2 mmol/L 3.5-5.2 chloride, serum [...] 0.20 mg/dL 0.00-1.00 cholesterol, serum 133 mg/dL 038-255 3604/04/16 triglyceride, serum, fasting 142 mg/dL 30-200 HDL cholesterol, serum 38 mg/dL 32-96 LDL cholesterol, serum 67 mg/dL 0-130 hemoglobin A1C, blood, as % of total hemoglobin 7.1 % 4.3-6.0 sodium, serum 142 mmol/L 852-180 0775/10/22 potassium, serum 4.9 mmol/L 3.5-5.2 chloride, serum [...] 0.30 mg/dL 0.00-1.00 cholesterol, serum 139 mg/dL 872-342 7907/10/22 triglyceride, serum, fasting 168 mg/dL 30-200 HDL [...] Yes Encounters Code Encounter Date Provider Facility CPT-78283 Level 4 Est. Patient 09:45:25 CDT Tu Landeros MD [facility] CPT-57114 Level 4 Est. Patient 09:05:20 [employer]IV[employer]IST Tu Landeros MD [facility] CPT-02539 Level 4 Est. Patient 14:09:06 CDT Tu Landeros MD [facility] CPT-66773 Level 3 Est. Patient 13:36:54 CDT Tu Landeros MD [facility] CPT-62441 Level 3 Est. Patient 08:59:14 CDT Tu Landeros MD [facility] CPT-57192 Level 3 Est. Patient 13:48:35 CDT Fab Morales DO [facility] CPT-46137 Level 4 Est. Patient 10:05:48 CDT Tu Landeros MD [facility] CPT-51862 Level 3 Est. Patient 13:38:42 CDT Marek BANKS [facility] CPT-93327 Level 5 Est. Patient 08:08:39 CDT Jerrica FRANCIS [facility] CPT-90369 Level 4 Est. Patient 14:23:38 CDT Tu Landeros MD [facility] CPT-49583 Level 3 Est. Patient 11:44:04 CDT Tu Landeros MD [facility] CPT-57934 Level 3 Est. 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 Patient 11:03:14 ARCHIVES SPECIALIST Tu Landeros MD [facility] CPT-83996 Level 3 Est. Patient 12:42:49 CDT Tu Landeros MD [facility] CPT-28339 Level 3 Est. Patient 11:52:06 CDT Tu Landeros MD [facility] CPT-50667 Level 3 Est. Patient 13:58:11 CDT Tu Landeros MD [facility] CPT-24809 Level 3 Est. Patient 17:50:07 CDT Fab Morales DO [facility] CPT-62676 Level 3 Est. Patient 12:06:29 CDT Elvira Cervantes MD PhD [facility] CPT-54345 Level 3 Est. Patient 15:50:32 CDT Tu Landeros MD [facility] CPT-57894 Level 4 Est. Patient 16:08:29 CDT Tu Landeros MD [facility] CPT-64762 Level 3 Est. Patient 16:04:19 CDT Tu Landeros MD [facility] CPT-70681 Level 3 Est. Patient 11:22:30 [employer]CHIVES SPECIALIST Tu Landeros MD [facility] CPT-73348 Level 4 Est. Patient 16:24:02 ARCHIVES SPECIALIST Tu Landeros MD [facility] CPT-85754 Level 3 Est. Patient 17:21:23 [employer]IV[employer] SPECIALIST Tu Landeros MD [facility] Procedures Code Procedure Name Date Entry Date Standard Description CPT-000 Give Zostavax 14:09:06 CDT CPT-04131 Administration single or combination vaccine inc oral 15 :19:04 CDT CPT-20626 Zoster Vaccine (Zostavax) 15:19:04 CDT CPT-50421 Administration single or combination vaccine inc oral 20 :51:03 CDT CPT-36948 Influenza split virus > age 3 20:51:03 CDT CPT-67414 No Charge Offi Visit 14:52:03 CDT CPT-OV Office Visit 14:57:43 CDT CPT-OV Office Visit 15:22:32 CDT CPT-59348 Administration single or combination vaccine inc oral 11 :33:15 CDT CPT-67326 Influenza split virus > age 3 11:33:15 CDT
--- OUTSIDE RECORDS SUMMARY | 2018-04-25 19:43 | XMS REPORT | Clinical Summary ---
[...] Urinary frequency FEVER UNSPECIFIED 780.60 Resolved Tu Landerso MD Fever, unspecified MUSCLE SPASM 728.85 Resolved [...] hours as needed for pain TRAMADOL HCL 84539985880 Active Tu Landeros MD Active HYDROCODONE-ACETAMINOPHEN 5-325 MG TABS 1 tab by mouth every 6 hours as needed for pain HYDROCODONE-ACETAMINOPHEN 72383962774 No Longer Active Tu Landeros MD Active OMEPRAZOLE 20 MG CPDR 1 po q a.m. OMEPRAZOLE 47328597216 Active Tu Landeros MD Active GABAPENTIN 100 MG CAPS 1 po bid GABAPENTIN 94560695513 No Longer Active Tu Landeros MD Active B-12 100 MCG TABS Take one by mouth daily CYANOCOBALAMIN 15646554930 No Longer Active Tu Landeros MD Active CIPRO 500 MG TABS 1 bid x 14 days start 09-28-13 CIPROFLOXACIN HCL 00998381413 Active Tu Landeors MD Active GABAPENTIN 100 MG CAPS by mouth twice a day GABAPENTIN 76953386895 Active Tu Landeros MD Active BACTRIM DS 800-160 MG TABS 1 bid x 14 day start 09-28-13 SULFAMETHOXAZOLE-TRIMETHOPRIM 62726772211 No Longer Active Tu Landeros MD Active SIMVASTATIN 40 MG TABS 1 tab daily at bedtime SIMVASTATIN 80950231332 Active Tu Landeros MD Active CARVEDILOL 12.5 MG TABS 1 po BID CARVEDILOL 78544089352 Active Lesli Kellogg APRN Active ALIGN 4 MG CAPS 1 tid PROBIOTIC PRODUCT 75230312990 Active JASPREET Perez Active SUPER B COMPLEX/VITAMIN C TABS 1 qd B COMPLEX-C 99715962849 Active JASPREET Perez Active TRILIPIX 135 MG CPDR 1 q hs CHOLINE FENOFIBRATE 62392817858 Active Tu Landeros MD Active FENOFIBRATE 145 MG TABS 1 po qd FENOFIBRATE 70836162996 No Longer Active JASPREET Perez Active OMEPRAZOLE 20 MG TBEC 1 PO 30 MIN BEFORE 1ST MEAL OMEPRAZOLE 69667694934 No Longer Active JASPREET Perez Active SIMVASTATIN 40 MG TABS Take one by mouth daily SIMVASTATIN 92868804242 No Longer Active JASPREET Perez Active VENLAFAXINE HCL 37.5 MG TABS 1 bid VENLAFAXINE HCL 50522806838 Active Tu Landeros MD Active VENLAFAXINE HCL 75 MG TABS 1 po BID VENLAFAXINE HCL 79677067307 No Longer Active GustavoJASPREET Archer Active METFORMIN HCL 500 MG TB24 1.5 po BID METFORMIN HCL 26550550806 Active Tu Landeros MD Active CIPRO 500 MG TAB 1 tablet by mouth twice daily CIPROFLOXACIN HCL 32271826359 No Longer Active Tu Landeros MD Active VENLAFAXINE HCL 37.5 MG TABS 1 po BID VENLAFAXINE HCL 74947071254 No Longer Active Suzebianca Nicole RMA Active [employer] STOOL SOFTENER 100 MG CAPS 1 tab daily DOCUSATE SODIUM 13409976888 Active Tu Landeros MD Active LAMISIL 250 MG TAB 1 po qd TERBINAFINE HCL 36230901094 No Longer Active Tu Landeros MD Active LORTAB 5 5-500 MG TABS 1/2 to 1 tablet by mouth every 4 hours as needed for pain HYDROCODONE-ACETAMINOPHEN 62839686333 No Longer Active Tu Landeros MD Active ENALAPRIL MALEATE 20 MG TABS 1.5 po qd ENALAPRIL MALEATE 03551164760 Active Tu Landeros MD Active HYDROCODONE-ACETAMINOPHEN 5-500 MG TABS take one po Q 4-6 hours prn HYDROCODONE-ACETAMINOPHEN 20224231628 No Longer Active Tu Landeros MD Active BACTRIM DS 800-160 MG TABS 1 po BID x 7 days SULFAMETHOXAZOLE-TRIMETHOPRIM 15081210575 No Longer Active Tu Landeros MD Active VENLAFAXINE HCL 75 MG TABS 1 po BID VENLAFAXINE HCL 60673567659 No Longer Active Elvira Cervantes MD PhD Active TRAMADOL HCL 50 MG TABS 1 tablets every 6 hours as needed for pain TRAMADOL HCL 64506405046 No Longer Active Tu Landeros MD Active TRUERESULT BLOOD GLUCOSE W/DEVICE KIT use to test blood sugar tid dx: 250.00 BLOOD GLUCOSE MONITORING SUPPL 72114745547 Active Tu Landeros MD Active TRUETEST TEST STRP test blood sugar three times daily dx: 250.00 GLUCOSE BLOOD 60387285050 Active Tu Landeros MD Active ACCU-CHEK FASTCLIX LANCETS MISC Use to check bloodsugar three times daily as needed LANCETS 28393411447 No Longer Active Tu Landeros MD Active ACCU-CHEK KEYONA PLUS STRP Use for testing bloodsugars three times daily as needed GLUCOSE BLOOD 31737945365 No Longer Active Tu Landeros MD Active ACCU-CHEK KEYONA PLUS W/DEVICE KIT Use for testing bloodsugars three times daily as needed BLOOD GLUCOSE MONITORING SUPPL 29111884600 No Longer Active Tu Landeros MD Active SPIRONOLACTONE 25 MG TAB 0.5 tablet by mouth daily SPIRONOLACTONE 04240927413 No Longer Active Tu Landeros MD Active ALPRAZOLAM 0.5 MG TABS 1 tab every 6hrs as needed ALPRAZOLAM 42025009779 No Longer Active Tu Landeros MD Active AUGMENTIN 875-125 MG TAB 1 tab by mouth twice daily with food AMOXICILLIN-POT CLAVULANATE 22116402099 No Longer Active Tu Landeros MD Active PREDNISONE 20 MG TAB 2 tabs daily for 3 days, 1 tab daily for 3 days, 1/2 tab daily for 2 days PREDNISONE 46817047622 No Longer Active Tu Landeros MD Active XANAX 0.5 MG TABS 1 tablet every 6 hrs prn ALPRAZOLAM 94124451628 No Longer Active Tu Landeros MD Active PREDNISONE 20 MG TAB 2 tabs daily for 3 days, 1 tab daily for 3 days, 1/2 tab daily for 2 days PREDNISONE 92776042328 No Longer Active Tu Landeros MD Active TRIAMCINOLONE ACETONIDE 0.1 % OINT Apply to affected areas TID for up to 2 weeks TRIAMCINOLONE ACETONIDE 04081440934 No Longer Active Tu Landeros MD Active LORTAB 5 5-500 MG TABS 1/2 to 1 tablet by mouth every 4 hours as needed for pain HYDROCODONE-ACETAMINOPHEN 63914625236 No Longer Active Tu Landeros MD Active MULTIVITAMINS TABS Take one by mouth daily MULTIPLE VITAMIN 06500174062 No Longer Active Tu Landeros MD Active MELATONIN 5 MG TABS Take one by mouth daily MELATONIN 09037736197 No Longer Active Tu Landeros MD Active SOMA 350 MG TAB 1 po q 6 hours prn spasm CARISOPRODOL 52830234205 No Longer Active Tu Landeros MD Active MECLIZINE HCL 25 MG CHEW TAB 1 four times a day as needed for dizziness 08/05 MECLIZINE HCL 53657107786 No Longer Active Fab Morales DO Active ANGEL BREEZE 2 TEST DISK test tid prn GLUCOSE BLOOD 24453496948 No Longer Active Negra Scott RN Active DICLOFENAC SODIUM 50 MG TBEC 1 tablet by mouth three times a day as needed DICLOFENAC SODIUM 76751468742 Active Tu Landeros MD Active REGLAN 10 MG TAB 1 po TID PRN [place] METOCLOPRAMIDE HCL 84755190104 No Longer Active Tu Landeros MD Active METFORMIN HCL 500 MG TABS 1 PO BID METFORMIN HCL 01670015337 No Longer Active Tu Landeros MD Active AMBIEN 10 MG TAB 1 tab by mouth at bedtime as needed for sleep ZOLPIDEM TARTRATE 72144788441 No Longer Active Tu Landeros MD Active FLUOXETINE HCL 40 MG CAPS 1 po q day FLUOXETINE HCL 41357802095 No Longer Active Mayra [place] Active FISH OIL 1000 MG CAPS Take one by mouth daily OMEGA-3 FATTY ACIDS 98058160393 Active Tu Landeros MD Active GLUCOSAMINE 500 MG TABS Take 2 tab po qd GLUCOSAMINE 96493279116 Active Tu Landeros MD Active TRILIPIX 135 MG CPDR 1 po qd CHOLINE FENOFIBRATE 50787081172 No Longer Active Tu Landeros MD Active ASPIRIN 81 MG CHEW TAB 1 tablet by mouth daily ASPIRIN 18590886011 Active Tu Landeros MD Active FUROSEMIDE 40 MG TAB 1 tablet by mouth daily FUROSEMIDE 50600513043 Active Tu Landeros MD Active REQUIP 2 MG TABS Take one tablet at bedtime prn ROPINIROLE HCL 30999090995 Active Tu Landeros MD Active KLOR-CON 10 10 MEQ CR-TABS TAKE 2 TABS DAILY POTASSIUM CHLORIDE 67611310913 Active Lesli Kellogg ANALYTICAL DATA MINER Active AMBIEN 10 MG TAB 1 tab by mouth at bedtime as needed for sleep AMBIEN 10 MG TAB 526306 ZOLPIDEM TARTRATE Inactive METFORMIN HCL 500 MG TABS 1 PO BID METFORMIN HCL 500 MG TABS 648501 METFORMIN HCL Inactive REGLAN 10 MG TAB 1 po TID PRN [place]ausea REGLAN 10 MG TAB 513747 METOCLOPRAMIDE HCL Inactive MECLIZINE HCL 25 MG CHEW TAB 1 four times a day as needed for dizziness 08/05 MECLIZINE HCL 25 MG CHEW TAB 958734 MECLIZINE HCL Inactive SOMA 350 MG TAB 1 po q 6 hours prn spasm SOMA 350 MG TAB 562790 CARISOPRODOL Inactive MELATONIN 5 MG TABS Take one by mouth daily MELATONIN 5 MG TABS 122967 MELATONIN Inactive MULTIVITAMINS TABS Take one by mouth daily MULTIVITAMINS TABS MULTIPLE VITAMIN Inactive LORTAB 5 5-500 MG TABS 1/2 to 1 tablet by mouth every 4 hours as needed for pain LORTAB 5 5-500 MG TABS HYDROCODONE- ACETAMINOPHEN Inactive XANAX 0.5 MG TABS 1 tablet every 6 hrs prn XANAX 0.5 MG TABS 593047 ALPRAZOLAM Inactive AUGMENTIN 875-125 MG TAB 1 tab by mouth twice daily with food AUGMENTIN 875-125 MG TAB 967904 AMOXICILLIN-POT CLAVULANATE Inactive ALPRAZOLAM 0.5 MG TABS 1 tab every 6hrs as needed ALPRAZOLAM 0.5 MG TABS 873595 ALPRAZOLAM Inactive SPIRONOLACTONE 25 MG TAB 0.5 tablet by mouth daily SPIRONOLACTONE 25 MG TAB 010493 SPIRONOLACTONE Inactive ACCU-CHEK KEYONA PLUS W/DEVICE KIT Use for testing bloodsugars three times daily as needed ACCU-CHEK KEYONA PLUS W/DEVICE KIT BLOOD GLUCOSE MONITORING SUPPL Inactive ACCU-CHEK KEYONA PLUS STRP Use for testing bloodsugars three times daily as needed ACCU-CHEK KEYONA PLUS STRP GLUCOSE BLOOD Inactive ACCU-CHEK FASTCLIX LANCETS MISC Use to check bloodsugar three times daily as needed ACCU-CHEK FASTCLIX LANCETS MISC 01587290154 LANCETS Inactive TRAMADOL HCL 50 MG TABS 1 tablets every 6 hours as needed for pain TRAMADOL HCL 50 MG TABS 830028 TRAMADOL HCL Inactive VENLAFAXINE HCL 75 MG TABS 1 po BID VENLAFAXINE HCL 75 MG TABS 536134 VENLAFAXINE HCL Inactive HYDROCODONE-ACETAMINOPHEN 5-500 MG TABS take one po Q 4-6 hours prn HYDROCODONE-ACETAMINOPHEN 5-500 MG TABS HYDROCODONE- ACETAMINOPHEN Inactive LORTAB 5 5-500 MG TABS 1/2 to 1 tablet by mouth every 4 hours as needed for pain LORTAB 5 5-500 MG TABS HYDROCODONE- ACETAMINOPHEN Inactive LAMISIL 250 MG TAB 1 po qd LAMISIL 250 MG TAB 858772 TERBINAFINE HCL Inactive VENLAFAXINE HCL 37.5 MG TABS 1 po BID VENLAFAXINE HCL 37.5 MG TABS 799822 VENLAFAXINE HCL Inactive CIPRO 500 MG TAB 1 tablet by mouth twice daily CIPRO 500 MG TAB 088805 CIPROFLOXACIN HCL Inactive VENLAFAXINE HCL 75 MG TABS 1 po BID VENLAFAXINE HCL 75 MG TABS 679554 VENLAFAXINE HCL Inactive SIMVASTATIN 40 MG TABS Take one by mouth daily SIMVASTATIN 40 MG TABS 801461 SIMVASTATIN Inactive OMEPRAZOLE 20 MG TBEC 1 PO 30 MIN BEFORE 1ST MEAL OMEPRAZOLE 20 MG TBEC 784120 OMEPRAZOLE Inactive FENOFIBRATE 145 MG TABS 1 po qd FENOFIBRATE 145 MG TABS 626181 FENOFIBRATE Inactive BACTRIM DS 800-160 MG TABS 1 bid x 14 day start 09-28-13 BACTRIM DS 800-160 MG TABS SULFAMETHOXAZOLE-TRIMETHOPRIM Inactive B-12 100 MCG TABS Take one by mouth daily B-12 100 MCG TABS CYANOCOBALAMIN Inactive GABAPENTIN 100 MG CAPS 1 po bid GABAPENTIN 100 MG CAPS 907505 GABAPENTIN Inactive HYDROCODONE-ACETAMINOPHEN 5-325 MG TABS 1 tab by mouth every 6 hours as needed for pain HYDROCODONE-ACETAMINOPHEN 5-325 MG TABS 979959 HYDROCODONE-ACETAMINOPHEN Inactive TRIAMCINOLONE ACETONIDE 0.1 % OINT Apply to affected areas TID for up to 2 weeks TRIAMCINOLONE ACETONIDE 0.1 % OINT 6724283 TRIAMCINOLONE ACETONIDE Inactive PREDNISONE 20 MG TAB 2 tabs daily for 3 days, 1 tab daily for 3 days, 1/2 tab daily for 2 days PREDNISONE 20 MG TAB 132026 PREDNISONE Inactive PREDNISONE 20 MG TAB 2 tabs daily for 3 days, 1 tab daily for 3 days, 1/2 tab daily for 2 days PREDNISONE 20 MG TAB 806453 PREDNISONE Inactive BACTRIM DS 800-160 MG TABS 1 po BID x 7 days BACTRIM DS 800-160 MG TABS SULFAMETHOXAZOLE-TRIMETHOPRIM Inactive Immunizations Vaccine Administration Date Value Standard Description Seasonal influenza vaccine, injectable, containing preservative, for > 3 years old (Afluria, FluLaval, Fluzone, Fluvirin, Fluarix, Agriflu(>=18 yo)) Fluzone (>3 yrs.) [CPG517] Influenza, seasonal, injectable influenza immunization (Flu Vax) has been administered 02/22/2012 influenza virus vaccine, unspecified formulation Seasonal influenza vaccine, injectable, containing preservative, for > 3 years old (Afluria, FluLaval, Fluzone, Fluvirin, Fluarix, Agriflu(>=18 yo)) Fluzone (>3 yrs.) [ICA102] Influenza, seasonal, injectable Vital Signs Date Name [...] Panel - Chemistry sodium, serum 139 mmol/L 654-484 0238/11/27 potassium, serum 4.9 mmol/L 3.5-5.2 chloride, serum [...] Panel - Chemistry sodium, serum 139 mmol/L 476-765 9705/11/22 potassium, serum 4.3 mmol/L 3.5-5.2 chloride, serum [...] HGBA1C - Chemistry sodium, serum 144 mmol/L 552-749 3744/04/16 potassium, serum 4.2 mmol/L 3.5-5.2 chloride, serum [...] 0.20 mg/dL 0.00-1.00 cholesterol, serum 133 mg/dL 458-574 7850/04/16 triglyceride, serum, fasting 142 mg/dL 30-200 HDL [...] mg/dL Encounters Code Encounter Date Provider Facility CPT-05306 Level 4 Est. 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 Patient 09:45:25 CDT Tu Landeros MD [facility] CPT-37299 Level 4 Est. Patient 09:05:[address] [employer] SERVIC[employer] HELPER Tu Landeros MD [facility] CPT-31083 Level 4 Est. Patient 14:09:06 CDT Tu Landeros MD [facility] CPT-88248 Level 3 Est. Patient 13:36:54 CDT Tu Landeros MD [facility] CPT-69666 Level 3 Est. Patient 08:59:14 CDT Tu Landeros MD [facility] CPT-22795 Level 3 Est. Patient 13:48:35 CDT Fab Morales DO [facility] CPT-13121 Level 4 Est. Patient 10:05:48 CDT Tu Landeros MD [facility] CPT-59043 Level 3 Est. Patient 13:38:42 CDT Marek BANKS [facility] CPT-04080 Level 5 Est. Patient 08:08:39 CDT Jerrica Hopkins TITO [facility] CPT-77086 Level 4 Est. Patient 14:23:38 CDT Tu Landeros MD [facility] CPT-27619 Level 3 Est. Patient 11:44:04 CDT Tu Landeros MD [facility] CPT-13161 Level 3 Est. Patient 11:03:[address] [employer]IC[employer] Tu Landeros MD [facility] CPT-27953 Level 3 Est. 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 Patient 12:42:49 CDT Tu Landeros MD [facility] CPT-89755 Level 3 Est. Patient 11:52:06 CDT Tu Landeros MD [facility] CPT-42814 Level 3 Est. Patient 13:58:11 CDT Tu Landeros MD [facility] CPT-41772 Level 3 Est. Patient 17:50:07 CDT Fab Morales DO [facility] CPT-46250 Level 3 Est. Patient 12:06:29 CDT Elvira Cervantes MD PhD [facility] CPT-22744 Level 3 Est. Patient 15:50:32 CDT Tu Landeros MD [facility] CPT-11220 Level 4 Est. Patient 16:08:29 CDT Tu Landeros MD [facility] CPT-32976 Level 3 Est. Patient 16:04:19 CDT Tu Landeros MD [facility] CPT-30775 Level 3 Est. Patient 11:22:[address] [employer] SERVIC[employer] HELPER Tu Landeros MD [facility] CPT-87001 Level 4 Est. Patient 16:24:[address] [employer] SERVIC[employer] HELPER Tu Landeros MD [facility] CPT-53711 Level 3 Est. Patient 17:21:[address] [employer]IC[employer]PER Tu Landeros MD [facility] Procedures Code Procedure Name Date Entry Date Standard Description CPT-OV Office Visit 15:45:11 CDT CPT-000 Give Zostavax 14:09:06 CDT CPT-69201 Administration single or combination vaccine inc oral 15 :19:04 CDT CPT-10673 Zoster Vaccine (Zostavax) 15:19:04 CDT CPT-20335 Administration single or combination vaccine inc oral 20 :51:03 CDT CPT-02452 Influenza split virus > age 3 20:51:03 CDT CPT-27666 No Charge Offi Visit 14:52:03 CDT CPT-OV Office Visit 14:57:43 CDT CPT-OV Office Visit 15:22:32 CDT CPT-44855 Administration single or combination vaccine inc oral 11 :33:15 CDT CPT-33981 Influenza split virus > age 3 11:33:15 CDT
--- OUTSIDE RECORDS SUMMARY | 2018-04-25 19:44 | XMS REPORT | Clinical Summary ---
Author Author Admin, SACHI Organization [facility] Address Unknown Phone Allergies, Adverse Reactions, [...] x 14 days start 09-28-13 CIPROFLOXACIN HCL 06098599340 Active [place] Active ALIGN 4 MG CAPS 1 tid PROBIOTIC PRODUCT 86987935689 Active Gustavo [place] Active BACTRIM DS 800-160 MG TABS 1 bid x 14 day start 09-28-13 SULFAMETHOXAZOLE-TRIMETHOPRIM 57300544746 Active Gustavo Norma Active GABAPENTIN 300 MG CAPS 1 tid GABAPENTIN 74010162084 Active Gustavo [place] Active SUPER B COMPLEX/VITAMIN C TABS 1 qd B COMPLEX-C 54520961508 Active [place] Active TRILIPIX 135 MG CPDR 1 q hs CHOLINE FENOFIBRATE 50016921018 Active Gustavo Norma Active FENOFIBRATE 145 MG TABS 1 po qd FENOFIBRATE 03520030784 No Longer Active Gustavo [place] Active OMEPRAZOLE 20 MG TBEC 1 PO 30 MIN BEFORE 1ST MEAL OMEPRAZOLE 51297237778 No Longer Active Gustavo [place] Active SIMVASTATIN 40 MG TABS Take one by mouth daily SIMVASTATIN 74497166096 No Longer Active Gustavo [place] Active GABAPENTIN 100 MG CAPS 1 po bid GABAPENTIN 33898161729 Active [place] Active CARVEDILOL 12.5 MG TABS Take 1 by mouth 30 min. before first meal CARVEDILOL 66263777662 Active Gustavo [place] Active VENLAFAXINE HCL 37.5 MG TABS 1 bid VENLAFAXINE HCL 90181916465 Active [place] Active VENLAFAXINE HCL 75 MG TABS 1 po BID VENLAFAXINE HCL 34102051461 No Longer Active Gustavo Norma Active HYDROCODONE-ACETAMINOPHEN 5-325 MG TABS 1 tab by mouth every 6 hours as needed for pain HYDROCODONE-ACETAMINOPHEN 00669197374 Active Tu Landeros MD Active METFORMIN HCL 500 MG TB24 1.5 po BID METFORMIN HCL 52075078601 Active Tu Landeros MD Active CIPRO 500 MG TAB 1 tablet by mouth twice daily CIPROFLOXACIN HCL 20086308113 No Longer Active Tu Landeros MD Active VENLAFAXINE HCL 37.5 MG TABS 1 po BID VENLAFAXINE HCL 60254788151 No Longer Active Suze Corey RMA Active [employer] STOOL SOFTENER 100 MG CAPS 1 tab daily DOCUSATE SODIUM 68640230186 Active Tu Landeros MD Active LAMISIL 250 MG TAB 1 po qd TERBINAFINE HCL 00021482155 No Longer Active Tu Landeros MD Active LORTAB 5 5-500 MG TABS 1/2 to 1 tablet by mouth every 4 hours as needed for pain HYDROCODONE-ACETAMINOPHEN 03429955598 No Longer Active Tu Landeros MD Active ENALAPRIL MALEATE 20 MG TABS 1.5 po qd ENALAPRIL MALEATE 57036756390 Active Tu Landeros MD Active HYDROCODONE-ACETAMINOPHEN 5-500 MG TABS take one po Q 4-6 hours prn HYDROCODONE-ACETAMINOPHEN 01796316195 No Longer Active Tu Landeros MD Active BACTRIM DS 800-160 MG TABS 1 po BID x 7 days SULFAMETHOXAZOLE-TRIMETHOPRIM 86849678962 No Longer Active Tu Landeros MD Active VENLAFAXINE HCL 75 MG TABS 1 po BID VENLAFAXINE HCL 32983540345 No Longer Active Elvira Cervantes MD PhD Active TRAMADOL HCL 50 MG TABS 1 tablets every 6 hours as needed for pain TRAMADOL HCL 12359811067 No Longer Active Tu Landeros MD Active TRUERESULT BLOOD GLUCOSE W/DEVICE KIT use to test blood sugar tid dx: 250.00 BLOOD GLUCOSE MONITORING SUPPL 91684253601 Active Tu Landeros MD Active TRUETEST TEST STRP test blood sugar three times daily dx: 250.00 GLUCOSE BLOOD 00126828561 Active Tu Landeros MD Active ACCU-CHEK FASTCLIX LANCETS MISC Use to check bloodsugar three times daily as needed LANCETS 97375476943 No Longer Active Tu Landeros MD Active ACCU-CHEK KEYONA PLUS STRP Use for testing bloodsugars three times daily as needed GLUCOSE BLOOD 00979596997 No Longer Active Tu Landeros MD Active ACCU-CHEK KEYONA PLUS W/DEVICE KIT Use for testing bloodsugars three times daily as needed BLOOD GLUCOSE MONITORING SUPPL 82779707647 No Longer Active Tu Landeros MD Active SPIRONOLACTONE 25 MG TAB 0.5 tablet by mouth daily SPIRONOLACTONE 50546102305 No Longer Active Tu Landeros MD Active ALPRAZOLAM 0.5 MG TABS 1 tab every 6hrs as needed ALPRAZOLAM 08815661798 No Longer Active Tu Landerso MD Active B-12 100 MCG TABS Take one by mouth daily CYANOCOBALAMIN 63012661758 Active Tu Landeros MD Active AUGMENTIN 875-125 MG TAB 1 tab by mouth twice daily with food AMOXICILLIN-POT CLAVULANATE 25879966064 No Longer Active Tu Landeros MD Active PREDNISONE 20 MG TAB 2 tabs daily for 3 days, 1 tab daily for 3 days, 1/2 tab daily for 2 days PREDNISONE 63435565409 No Longer Active Tu Landeros MD Active XANAX 0.5 MG TABS 1 tablet every 6 hrs prn ALPRAZOLAM 84944528943 No Longer Active Tu Landeros MD Active PREDNISONE 20 MG TAB 2 tabs daily for 3 days, 1 tab daily for 3 days, 1/2 tab daily for 2 days PREDNISONE 50778742489 No Longer Active Tu Landeros MD Active TRIAMCINOLONE ACETONIDE 0.1 % OINT Apply to affected areas TID for up to 2 weeks TRIAMCINOLONE ACETONIDE 30085872039 No Longer Active Tu Landeros MD Active LORTAB 5 5-500 MG TABS 1/2 to 1 tablet by mouth every 4 hours as needed for pain HYDROCODONE-ACETAMINOPHEN 28337001228 No Longer Active Tu Landeros MD Active MULTIVITAMINS TABS Take one by mouth daily MULTIPLE VITAMIN 60145606036 No Longer Active Tu Landeros MD Active MELATONIN 5 MG TABS Take one by mouth daily MELATONIN 74069496742 No Longer Active Tu Landeros MD Active SOMA 350 MG TAB 1 po q 6 hours prn spasm CARISOPRODOL 01830424015 No Longer Active Tu Landeros MD Active MECLIZINE HCL 25 MG CHEW TAB 1 four times a day as needed for dizziness 08/05 MECLIZINE HCL 92098259630 No Longer Active Fab Morales DO Active ANGEL BREEZE 2 TEST DISK test tid prn GLUCOSE BLOOD 84344565723 No Longer Active Negra Scott RN Active DICLOFENAC SODIUM 50 MG TBEC 1 tablet by mouth three times a day as needed DICLOFENAC SODIUM 74659920675 Active Tu Landeros MD Active REGLAN 10 MG TAB 1 po TID PRN [place] METOCLOPRAMIDE HCL 03994766023 No Longer Active Tu Landeros MD Active METFORMIN HCL 500 MG TABS 1 PO BID METFORMIN HCL 68943437754 No Longer Active Tu Landeros MD Active AMBIEN 10 MG TAB 1 tab by mouth at bedtime as needed for sleep ZOLPIDEM TARTRATE 68239458832 No Longer Active Tu Landeros MD Active FLUOXETINE HCL 40 MG CAPS 1 po q day FLUOXETINE HCL 15481756740 No Longer Active Mayra [place] Active FISH OIL 1000 MG CAPS Take one by mouth daily OMEGA-3 FATTY ACIDS 94436767082 Active Tu Landeros MD Active GLUCOSAMINE 500 MG TABS Take 2 tab po qd GLUCOSAMINE 35954451359 Active Tu Landeros MD Active TRILIPIX 135 MG CPDR 1 po qd CHOLINE FENOFIBRATE 69150836480 No Longer Active Tu Landeros MD Active ASPIRIN 81 MG CHEW TAB 1 tablet by mouth daily ASPIRIN 27521136897 Active Tu Landeros MD Active FUROSEMIDE 40 MG TAB 1 tablet by mouth daily FUROSEMIDE 94841112783 Active Tu Landeros MD Active REQUIP 2 MG TABS Take one tablet at bedtime prn ROPINIROLE HCL 66694775954 Active Tu Landeros MD Active KLOR-CON 10 10 MEQ CR-TABS TAKE 2 TABS DAILY POTASSIUM CHLORIDE 59375959936 Active Tu Landeros MD Active AMBIEN 10 MG TAB 1 tab by mouth at bedtime as needed for sleep AMBIEN 10 MG TAB 775777 ZOLPIDEM TARTRATE Inactive METFORMIN HCL 500 MG TABS 1 PO BID METFORMIN HCL 500 MG TABS 373668 METFORMIN HCL Inactive REGLAN 10 MG TAB 1 po TID PRN [place] REGLAN 10 MG TAB 562200 METOCLOPRAMIDE HCL Inactive MECLIZINE HCL 25 MG CHEW TAB 1 four times a day as needed for dizziness 08/05 MECLIZINE HCL 25 MG CHEW TAB 062997 MECLIZINE HCL Inactive SOMA 350 MG TAB 1 po q 6 hours prn spasm SOMA 350 MG TAB 206003 CARISOPRODOL Inactive MELATONIN 5 MG TABS Take one by mouth daily MELATONIN 5 MG TABS 860242 MELATONIN Inactive MULTIVITAMINS TABS Take one by mouth daily MULTIVITAMINS TABS MULTIPLE VITAMIN Inactive LORTAB 5 5-500 MG TABS 1/2 to 1 tablet by mouth every 4 hours as needed for pain LORTAB 5 5-500 MG TABS HYDROCODONE- ACETAMINOPHEN Inactive XANAX 0.5 MG TABS 1 tablet every 6 hrs prn XANAX 0.5 MG TABS 716910 ALPRAZOLAM Inactive AUGMENTIN 875-125 MG TAB 1 tab by mouth twice daily with food AUGMENTIN 875-125 MG TAB 312007 AMOXICILLIN-POT CLAVULANATE Inactive ALPRAZOLAM 0.5 MG TABS 1 tab every 6hrs as needed ALPRAZOLAM 0.5 MG TABS 967859 ALPRAZOLAM Inactive SPIRONOLACTONE 25 MG TAB 0.5 tablet by mouth daily SPIRONOLACTONE 25 MG TAB 984216 SPIRONOLACTONE Inactive ACCU-CHEK KEYONA PLUS W/DEVICE KIT Use for testing bloodsugars three times daily as needed ACCU-CHEK KEYONA PLUS W/DEVICE KIT BLOOD GLUCOSE MONITORING SUPPL Inactive ACCU-CHEK KEYONA PLUS STRP Use for testing bloodsugars three times daily as needed ACCU-CHEK KEYONA PLUS STRP GLUCOSE BLOOD Inactive ACCU-CHEK FASTCLIX LANCETS MISC Use to check bloodsugar three times daily as needed ACCU-CHEK FASTCLIX LANCETS MISC 57270256600 LANCETS Inactive TRAMADOL HCL 50 MG TABS 1 tablets every 6 hours as needed for pain TRAMADOL HCL 50 MG TABS 796957 TRAMADOL HCL Inactive VENLAFAXINE HCL 75 MG TABS 1 po BID VENLAFAXINE HCL 75 MG TABS 832775 VENLAFAXINE HCL Inactive HYDROCODONE-ACETAMINOPHEN 5-500 MG TABS take one po Q 4-6 hours prn HYDROCODONE-ACETAMINOPHEN 5-500 MG TABS 736379 HYDROCODONE- ACETAMINOPHEN Inactive LORTAB 5 5-500 MG TABS 1/2 to 1 tablet by mouth every 4 hours as needed for pain LORTAB 5 5-500 MG TABS HYDROCODONE- ACETAMINOPHEN Inactive LAMISIL 250 MG TAB 1 po qd LAMISIL 250 MG TAB 072865 TERBINAFINE HCL Inactive VENLAFAXINE HCL 37.5 MG TABS 1 po BID VENLAFAXINE HCL 37.5 MG TABS 065896 VENLAFAXINE HCL Inactive CIPRO 500 MG TAB 1 tablet by mouth twice daily CIPRO 500 MG TAB 204020 CIPROFLOXACIN HCL Inactive VENLAFAXINE HCL 75 MG TABS 1 po BID VENLAFAXINE HCL 75 MG TABS 900500 VENLAFAXINE HCL Inactive SIMVASTATIN 40 MG TABS Take one by mouth daily SIMVASTATIN 40 MG TABS 838717 SIMVASTATIN Inactive OMEPRAZOLE 20 MG TBEC 1 PO 30 MIN BEFORE 1ST MEAL OMEPRAZOLE 20 MG TBEC 566093 OMEPRAZOLE Inactive FENOFIBRATE 145 MG TABS 1 po qd FENOFIBRATE 145 MG TABS 251602 FENOFIBRATE Inactive TRIAMCINOLONE ACETONIDE 0.1 % OINT Apply to affected areas TID for up to 2 weeks TRIAMCINOLONE ACETONIDE 0.1 % OINT 4900303 TRIAMCINOLONE ACETONIDE Inactive PREDNISONE 20 MG TAB 2 tabs daily for 3 days, 1 tab daily for 3 days, 1/2 tab daily for 2 days PREDNISONE 20 MG TAB 377583 PREDNISONE Inactive PREDNISONE 20 MG TAB 2 tabs daily for 3 days, 1 tab daily for 3 days, 1/2 tab daily for 2 days PREDNISONE 20 MG TAB 799569 PREDNISONE Inactive BACTRIM DS 800-160 MG TABS 1 po BID x 7 days BACTRIM DS 800-160 MG TABS SULFAMETHOXAZOLE-TRIMETHOPRIM Inactive Immunizations Vaccine Administration Date Value Standard Description Seasonal influenza vaccine, injectable, containing preservative, for > 3 years old (Afluria, FluLaval, Fluzone, Fluvirin, Fluarix, Agriflu(>=18 yo)) Fluzone (>3 yrs.) [[id number]] Influenza, seasonal, injectable influenza immunization (Flu Vax) has been administered 02/22/2012 influenza virus vaccine, unspecified formulation Seasonal influenza vaccine, injectable, containing preservative, for > 3 years old (Afluria, FluLaval, Fluzone, Fluvirin, Fluarix, Agriflu(>=18 yo)) Fluzone (>3 yrs.) [[id number]] Influenza, seasonal, injectable Vital Signs Date Name [...] Panel - Chemistry sodium, serum 139 mmol/L 233-722 8185/11/27 potassium, serum 4.9 mmol/L 3.5-5.2 chloride, serum [...] Panel - Chemistry sodium, serum 139 mmol/L 565-914 4807/11/22 potassium, serum 4.3 mmol/L 3.5-5.2 chloride, serum [...] HGBA1C - Chemistry sodium, serum 142 mmol/L 741-073 7613/10/22 potassium, serum 4.9 mmol/L 3.5-5.2 chloride, serum [...] 0.30 mg/dL 0.00-1.00 cholesterol, serum 139 mg/dL 438-683 4298/10/22 triglyceride, serum, fasting 168 mg/dL 30-200 HDL cholesterol, serum 40 mg/dL 32-96 LDL cholesterol, serum 65 mg/dL 0-130 hemoglobin A1C, blood, as % of total hemoglobin 6.2 % 4.3-6.0 sodium, serum 144 mmol/L 144-066 3804/04/16 potassium, serum 4.2 mmol/L 3.5-5.2 chloride, serum [...] 0.20 mg/dL 0.00-1.00 cholesterol, serum 133 mg/dL 028-428 0979/04/16 triglyceride, serum, fasting 142 mg/dL 30-200 HDL [...] mg/dL Encounters Code Encounter Date Provider Facility CPT-95488 Level 4 Est. Patient 09:45:25 CDT Tu Landeros MD [facility] CPT-87327 Level 4 Est. Patient 09:05:20 REHABILITATION LIAISON Tu Landeros MD [facility] CPT-18254 Level 4 Est. Patient 14:09:06 CDT Tu Landeros MD [facility] CPT-38175 Level 3 Est. Patient 13:36:54 CDT Tu Landeros MD [facility] CPT-78096 Level 3 Est. Patient 08:59:14 CDT Tu Landeros MD [facility] CPT-46793 Level 3 Est. Patient 13:48:35 CDT Fab Morales DO [facility] CPT-69796 Level 4 Est. Patient 10:05:48 CDT Tu Landeros MD [facility] CPT-81409 Level 3 Est. Patient 13:38:42 CDT Marek BANKS [facility] CPT-93033 Level 5 Est. Patient 08:08:39 CDT Jerrica FRANCIS [facility] CPT-19247 Level 4 Est. Patient 14:23:38 CDT Tu Landeros MD [facility] CPT-56029 Level 3 Est. Patient 11:44:04 CDT Tu Landeros MD [facility] CPT-56238 Level 3 Est. Patient 11:03:20 REHABILITATION LIAISON Tu Landeros MD [facility] CPT-72058 Level 3 Est. Patient 11:03:14 REHABILITATION LIAISON Tu Landeros MD [facility] CPT-25670 Level 3 Est. Patient 12:42:49 CDT Tu Landeros MD [facility] CPT-33761 Level 3 Est. Patient 11:52:06 CDT Tu Landeros MD [facility] CPT-51865 Level 3 Est. Patient 13:58:11 CDT Tu Landeros MD [facility] CPT-73198 Level 3 Est. Patient 17:50:07 CDT Fab Morales DO [facility] CPT-78034 Level 3 Est. Patient 12:06:29 CDT Elvira Cervantes MD [facility] CPT-69582 Level 3 Est. Patient 15:50:32 CDT Tu Landeros MD [facility] CPT-99361 Level 4 Est. Patient 16:08:29 CDT Tu Landeros MD [facility] CPT-84896 Level 3 Est. Patient 16:04:19 CDT Tu Landeros MD [facility] CPT-81307 Level 3 Est. Patient 11:22:30 REHABILITATION LIAISON Tu Landeros MD [facility] CPT-41988 Level 4 Est. Patient 16:24:02 REHABILITATION LIAISON Tu Landeros MD [facility] CPT-48301 Level 3 Est. Patient 17:21:23 REHABILITATION LIAISON Tu Landeros MD [facility] Procedures Code Procedure Name Date Entry Date Standard Description CPT-OV Office Visit 15:45:11 CDT CPT-000 Give Zostavax 14:09:06 CDT CPT-53362 Administration single or combination vaccine inc oral 15 :19:04 CDT CPT-85795 Zoster Vaccine (Zostavax) 15:19:04 CDT CPT-01740 Administration single or combination vaccine inc oral 20 :51:03 CDT CPT-34183 Influenza split virus > age 3 20:51:03 CDT CPT-28609 No Charge Offi Visit 14:52:03 CDT CPT-OV Office Visit 14:57:43 CDT CPT-OV Office Visit 15:22:32 CDT CPT-13107 Administration single or combination vaccine inc oral 11 :33:15 CDT CPT-13656 Influenza split virus > age 3 11:33:15 CDT
--- OUTSIDE RECORDS SUMMARY | 2018-04-25 19:45 | XMS REPORT | Clinical Summary ---
Author Author Admin, SACHI Organization [facility] Address Unknown Phone Allergies, Adverse Reactions, [...] x 14 days start 09-28-13 CIPROFLOXACIN HCL 84226717724 Active [place] Active ALIGN 4 MG CAPS 1 tid PROBIOTIC PRODUCT 79423544981 Active Gustavo [place] Active BACTRIM DS 800-160 MG TABS 1 bid x 14 day start 09-28-13 SULFAMETHOXAZOLE-TRIMETHOPRIM 02281503147 Active Gustavo Norma Active GABAPENTIN 300 MG CAPS 1 tid GABAPENTIN 00750979190 Active Gustavo [place] Active SUPER B COMPLEX/VITAMIN C TABS 1 qd B COMPLEX-C 00185950069 Active [place] Norma Active TRILIPIX 135 MG CPDR 1 q hs CHOLINE FENOFIBRATE 64093567006 Active Tu Landeros MD Active FENOFIBRATE 145 MG TABS 1 po qd FENOFIBRATE 35869654030 No Longer Active Gustavo [place] Active OMEPRAZOLE 20 MG TBEC 1 PO 30 MIN BEFORE 1ST MEAL OMEPRAZOLE 92108582173 No Longer Active Gustavo [place] Active SIMVASTATIN 40 MG TABS Take one by mouth daily SIMVASTATIN 99237271885 No Longer Active Gustavo [place] Active GABAPENTIN 100 MG CAPS 1 po bid GABAPENTIN 59995276399 Active [place] Norma Active CARVEDILOL 12.5 MG TABS Take 1 by mouth 30 min. before first meal CARVEDILOL 15009070830 Active Gustavo [place] Active VENLAFAXINE HCL 37.5 MG TABS 1 bid VENLAFAXINE HCL 06396905051 Active [place] Active VENLAFAXINE HCL 75 MG TABS 1 po BID VENLAFAXINE HCL 20111404831 No Longer Active Gustavo Norma Active HYDROCODONE-ACETAMINOPHEN 5-325 MG TABS 1 tab by mouth every 6 hours as needed for pain HYDROCODONE-ACETAMINOPHEN 07722366122 Active Tu Landeros MD Active METFORMIN HCL 500 MG TB24 1.5 po BID METFORMIN HCL 94700256867 Active Tu Landeros MD Active CIPRO 500 MG TAB 1 tablet by mouth twice daily CIPROFLOXACIN HCL 85241207110 No Longer Active Tu Landeros MD Active VENLAFAXINE HCL 37.5 MG TABS 1 po BID VENLAFAXINE HCL 88078228225 No Longer Active Suze Corey RMA Active CVS STOOL SOFTENER 100 MG CAPS 1 tab daily DOCUSATE SODIUM 67533826832 Active Tu Landeros MD Active LAMISIL 250 MG TAB 1 po qd TERBINAFINE HCL 17855109710 No Longer Active Tu Landeros MD Active LORTAB 5 5-500 MG TABS 1/2 to 1 tablet by mouth every 4 hours as needed for pain HYDROCODONE-ACETAMINOPHEN 35858351965 No Longer Active Tu Landeros MD Active ENALAPRIL MALEATE 20 MG TABS 1.5 po qd ENALAPRIL MALEATE 39802212348 Active Tu Lnaderos MD Active HYDROCODONE-ACETAMINOPHEN 5-500 MG TABS take one po Q 4-6 hours prn HYDROCODONE-ACETAMINOPHEN 67596412778 No Longer Active Tu Landeros MD Active BACTRIM DS 800-160 MG TABS 1 po BID x 7 days SULFAMETHOXAZOLE-TRIMETHOPRIM 15057301439 No Longer Active Tu Landeros MD Active VENLAFAXINE HCL 75 MG TABS 1 po BID VENLAFAXINE HCL 71366478813 No Longer Active Elvira Cervantes MD PhD Active TRAMADOL HCL 50 MG TABS 1 tablets every 6 hours as needed for pain TRAMADOL HCL 89076127415 No Longer Active Tu Landeros MD Active TRUERESULT BLOOD GLUCOSE W/DEVICE KIT use to test blood sugar tid dx: 250.00 BLOOD GLUCOSE MONITORING SUPPL 05722488094 Active Tu Landeros MD Active TRUETEST TEST STRP test blood sugar three times daily dx: 250.00 GLUCOSE BLOOD 84684127116 Active Tu Landeros MD Active ACCU-CHEK FASTCLIX LANCETS MISC Use to check bloodsugar three times daily as needed LANCETS 26897921722 No Longer Active Tu Landeros MD Active ACCU-CHEK KEYONA PLUS STRP Use for testing bloodsugars three times daily as needed GLUCOSE BLOOD 52970573254 No Longer Active Tu Landeros MD Active ACCU-CHEK KEYONA PLUS W/DEVICE KIT Use for testing bloodsugars three times daily as needed BLOOD GLUCOSE MONITORING SUPPL 27251347085 No Longer Active Tu Landeros MD Active SPIRONOLACTONE 25 MG TAB 0.5 tablet by mouth daily SPIRONOLACTONE 17584019598 No Longer Active Tu Landeros MD Active ALPRAZOLAM 0.5 MG TABS 1 tab every 6hrs as needed ALPRAZOLAM 64255207650 No Longer Active Tu Landeros MD Active B-12 100 MCG TABS Take one by mouth daily CYANOCOBALAMIN 15879408669 Active Tu Landeros MD Active AUGMENTIN 875-125 MG TAB 1 tab by mouth twice daily with food AMOXICILLIN-POT CLAVULANATE 10734389429 No Longer Active Tu Landeros MD Active PREDNISONE 20 MG TAB 2 tabs daily for 3 days, 1 tab daily for 3 days, 1/2 tab daily for 2 days PREDNISONE 54212315103 No Longer Active Tu Landeros MD Active XANAX 0.5 MG TABS 1 tablet every 6 hrs prn ALPRAZOLAM 72635736225 No Longer Active Tu Landeros MD Active PREDNISONE 20 MG TAB 2 tabs daily for 3 days, 1 tab daily for 3 days, 1/2 tab daily for 2 days PREDNISONE 20609860115 No Longer Active Tu Landeros MD Active TRIAMCINOLONE ACETONIDE 0.1 % OINT Apply to affected areas TID for up to 2 weeks TRIAMCINOLONE ACETONIDE 50811749417 No Longer Active Tu Landeros MD Active LORTAB 5 5-500 MG TABS 1/2 to 1 tablet by mouth every 4 hours as needed for pain HYDROCODONE-ACETAMINOPHEN 05630863607 No Longer Active Tu Landeros MD Active MULTIVITAMINS TABS Take one by mouth daily MULTIPLE VITAMIN 86124616710 No Longer Active Tu Landeros MD Active MELATONIN 5 MG TABS Take one by mouth daily MELATONIN 82726443858 No Longer Active Tu Landeros MD Active SOMA 350 MG TAB 1 po q 6 hours prn spasm CARISOPRODOL 27649657864 No Longer Active Tu Landeros MD Active MECLIZINE HCL 25 MG CHEW TAB 1 four times a day as needed for dizziness 08/05 MECLIZINE HCL 96371299451 No Longer Active Fab Morales DO Active ANGEL BREEZE 2 TEST DISK test tid prn GLUCOSE BLOOD 59396786144 No Longer Active Negra Scott RN Active DICLOFENAC SODIUM 50 MG TBEC 1 tablet by mouth three times a day as needed DICLOFENAC SODIUM 24574099538 Active Tu Landeros MD Active REGLAN 10 MG TAB 1 po TID PRN [place] METOCLOPRAMIDE HCL 02896964006 No Longer Active Tu Landeros MD Active METFORMIN HCL 500 MG TABS 1 PO BID METFORMIN HCL 96190383469 No Longer Active Tu Landeros MD Active AMBIEN 10 MG TAB 1 tab by mouth at bedtime as needed for sleep ZOLPIDEM TARTRATE 52147948519 No Longer Active Tu Landeros MD Active FLUOXETINE HCL 40 MG CAPS 1 po q day FLUOXETINE HCL 06989811779 No Longer Active Mayra Warren Active FISH OIL 1000 MG CAPS Take one by mouth daily OMEGA-3 FATTY ACIDS 93868064117 Active Tu Landeros MD Active GLUCOSAMINE 500 MG TABS Take 2 tab po qd GLUCOSAMINE 58520221975 Active Tu Landeros MD Active TRILIPIX 135 MG CPDR 1 po qd CHOLINE FENOFIBRATE 56605871423 No Longer Active Tu Landeros MD Active ASPIRIN 81 MG CHEW TAB 1 tablet by mouth daily ASPIRIN 53969201794 Active Tu Landeros MD Active FUROSEMIDE 40 MG TAB 1 tablet by mouth daily FUROSEMIDE 20537612913 Active Tu Landeros MD Active REQUIP 2 MG TABS Take one tablet at bedtime prn ROPINIROLE HCL 47579226146 Active Tu Landeros MD Active KLOR-CON 10 10 MEQ CR-TABS TAKE 2 TABS DAILY POTASSIUM CHLORIDE 71564945609 Active Tu Landeros MD Active AMBIEN 10 MG TAB 1 tab by mouth at bedtime as needed for sleep AMBIEN 10 MG TAB 466375 ZOLPIDEM TARTRATE Inactive METFORMIN HCL 500 MG TABS 1 PO BID METFORMIN HCL 500 MG TABS 920898 METFORMIN HCL Inactive REGLAN 10 MG TAB 1 po TID PRN [place] REGLAN 10 MG TAB 537353 METOCLOPRAMIDE HCL Inactive MECLIZINE HCL 25 MG CHEW TAB 1 four times a day as needed for dizziness 08/05 MECLIZINE HCL 25 MG CHEW TAB 553194 MECLIZINE HCL Inactive SOMA 350 MG TAB 1 po q 6 hours prn spasm SOMA 350 MG TAB 240917 CARISOPRODOL Inactive MELATONIN 5 MG TABS Take one by mouth daily MELATONIN 5 MG TABS 686295 MELATONIN Inactive MULTIVITAMINS TABS Take one by mouth daily MULTIVITAMINS TABS MULTIPLE VITAMIN Inactive LORTAB 5 5-500 MG TABS 1/2 to 1 tablet by mouth every 4 hours as needed for pain LORTAB 5 5-500 MG TABS HYDROCODONE- ACETAMINOPHEN Inactive XANAX 0.5 MG TABS 1 tablet every 6 hrs prn XANAX 0.5 MG TABS 303492 ALPRAZOLAM Inactive AUGMENTIN 875-125 MG TAB 1 tab by mouth twice daily with food AUGMENTIN 875-125 MG TAB 457501 AMOXICILLIN-POT CLAVULANATE Inactive ALPRAZOLAM 0.5 MG TABS 1 tab every 6hrs as needed ALPRAZOLAM 0.5 MG TABS 005930 ALPRAZOLAM Inactive SPIRONOLACTONE 25 MG TAB 0.5 tablet by mouth daily SPIRONOLACTONE 25 MG TAB 012099 SPIRONOLACTONE Inactive ACCU-CHEK KEYONA PLUS W/DEVICE KIT Use for testing bloodsugars three times daily as needed ACCU-CHEK KEYONA PLUS W/DEVICE KIT BLOOD GLUCOSE MONITORING SUPPL Inactive ACCU-CHEK KEYONA PLUS STRP Use for testing bloodsugars three times daily as needed ACCU-CHEK KEYONA PLUS STRP GLUCOSE BLOOD Inactive ACCU-CHEK FASTCLIX LANCETS MISC Use to check bloodsugar three times daily as needed ACCU-CHEK FASTCLIX LANCETS MISC 56277167589 LANCETS Inactive TRAMADOL HCL 50 MG TABS 1 tablets every 6 hours as needed for pain TRAMADOL HCL 50 MG TABS 079873 TRAMADOL HCL Inactive VENLAFAXINE HCL 75 MG TABS 1 po BID VENLAFAXINE HCL 75 MG TABS 239641 VENLAFAXINE HCL Inactive HYDROCODONE-ACETAMINOPHEN 5-500 MG TABS take one po Q 4-6 hours prn HYDROCODONE-ACETAMINOPHEN 5-500 MG TABS HYDROCODONE- ACETAMINOPHEN Inactive LORTAB 5 5-500 MG TABS 1/2 to 1 tablet by mouth every 4 hours as needed for pain LORTAB 5 5-500 MG TABS HYDROCODONE- ACETAMINOPHEN Inactive LAMISIL 250 MG TAB 1 po qd LAMISIL 250 MG TAB 513682 TERBINAFINE HCL Inactive VENLAFAXINE HCL 37.5 MG TABS 1 po BID VENLAFAXINE HCL 37.5 MG TABS 727962 VENLAFAXINE HCL Inactive CIPRO 500 MG TAB 1 tablet by mouth twice daily CIPRO 500 MG TAB 889652 CIPROFLOXACIN HCL Inactive VENLAFAXINE HCL 75 MG TABS 1 po BID VENLAFAXINE HCL 75 MG TABS 567150 VENLAFAXINE HCL Inactive SIMVASTATIN 40 MG TABS Take one by mouth daily SIMVASTATIN 40 MG TABS 142731 SIMVASTATIN Inactive OMEPRAZOLE 20 MG TBEC 1 PO 30 MIN BEFORE 1ST MEAL OMEPRAZOLE 20 MG TBEC 976506 OMEPRAZOLE Inactive FENOFIBRATE 145 MG TABS 1 po qd FENOFIBRATE 145 MG TABS 619691 FENOFIBRATE Inactive TRIAMCINOLONE ACETONIDE 0.1 % OINT Apply to affected areas TID for up to 2 weeks TRIAMCINOLONE ACETONIDE 0.1 % OINT 9527773 TRIAMCINOLONE ACETONIDE Inactive PREDNISONE 20 MG TAB 2 tabs daily for 3 days, 1 tab daily for 3 days, 1/2 tab daily for 2 days PREDNISONE 20 MG TAB 867500 PREDNISONE Inactive PREDNISONE 20 MG TAB 2 tabs daily for 3 days, 1 tab daily for 3 days, 1/2 tab daily for 2 days PREDNISONE 20 MG TAB 827466 PREDNISONE Inactive BACTRIM DS 800-160 MG TABS 1 po BID x 7 days BACTRIM DS 800-160 MG TABS SULFAMETHOXAZOLE-TRIMETHOPRIM Inactive Immunizations Vaccine Administration Date Value Standard Description Seasonal influenza vaccine, injectable, containing preservative, for > 3 years old (Afluria, FluLaval, Fluzone, Fluvirin, Fluarix, Agriflu(>=18 yo)) Fluzone (>3 yrs.) [[id number]] Influenza, seasonal, injectable influenza immunization (Flu Vax) has been administered 02/22/2012 influenza virus vaccine, unspecified formulation Seasonal influenza vaccine, injectable, containing preservative, for > 3 years old (Afluria, FluLaval, Fluzone, Fluvirin, Fluarix, Agriflu(>=18 yo)) Fluzone (>3 yrs.) [[id number]] Influenza, seasonal, injectable Vital Signs Date Name [...] Panel - Chemistry sodium, serum 139 mmol/L 238-706 8986/11/27 potassium, serum 4.9 mmol/L 3.5-5.2 chloride, serum [...] Panel - Chemistry sodium, serum 139 mmol/L 343-702 1373/11/22 potassium, serum 4.3 mmol/L 3.5-5.2 chloride, [...] HGBA1C - Chemistry sodium, serum 142 mmol/L 650-285 3231/10/22 potassium, serum 4.9 mmol/L 3.5-5.2 chloride, serum [...] 0.30 mg/dL 0.00-1.00 cholesterol, serum 139 mg/dL 065-644 9749/10/22 triglyceride, serum, fasting 168 mg/dL 30-200 HDL cholesterol, serum 40 mg/dL 32-96 LDL cholesterol, serum 65 mg/dL 0-130 hemoglobin A1C, blood, as % of total hemoglobin 6.2 % 4.3-6.0 sodium, serum 144 mmol/L 603-770 5366/04/16 potassium, serum 4.2 mmol/L 3.5-5.2 chloride, serum [...] 0.20 mg/dL 0.00-1.00 cholesterol, serum 133 mg/dL 265-714 6165/04/16 triglyceride, serum, fasting 142 mg/dL 30-200 HDL [...] mg/dL Encounters Code Encounter Date Provider Facility CPT-51830 Level 4 Est. Patient 09:45:25 CDT Tu Landeros MD [facility] CPT-51453 Level 4 Est. Patient 09:05:20 DIRECTOR BIOSTATISTICS Tu Landeros MD [facility] CPT-32392 Level 4 Est. Patient 14:09:06 CDT Tu Landeros MD [facility] CPT-45592 Level 3 Est. Patient 13:36:54 CDT Tu Landeros MD [facility] CPT-99661 Level 3 Est. Patient 08:59:14 CDT Tu Landeros MD [facility] CPT-61535 Level 3 Est. Patient 13:48:35 CDT Fab Morales DO [facility] CPT-45154 Level 4 Est. Patient 10:05:48 CDT Tu Landeros MD [facility] CPT-25229 Level 3 Est. Patient 13:38:42 CDT Marek BANKS [facility] CPT-69584 Level 5 Est. Patient 08:08:39 CDT Jerrica Hopkins TITO [facility] CPT-91136 Level 4 Est. Patient 14:23:38 CDT Tu Landeros MD [facility] CPT-88417 Level 3 Est. Patient 11:44:04 CDT Tu Landeros MD [facility] CPT-83520 Level 3 Est. Patient 11:03:20 DIRECTOR BIOSTATISTICS Tu Landeros MD [facility] CPT-44554 Level 3 Est. Patient 11:03:14 DIRECTOR BIOSTATISTICS Tu Landeros MD [facility] CPT-71992 Level 3 Est. Patient 12:42:49 CDT Tu Landeros MD [facility] CPT-45257 Level 3 Est. Patient 11:52:06 CDT Tu Landeros MD [facility] CPT-16962 Level 3 Est. Patient 13:58:11 CDT Tu Landeros MD [facility] CPT-60303 Level 3 Est. Patient 17:50:07 CDT Fab Morales DO [facility] CPT-26132 Level 3 Est. Patient 12:06:29 CDT Elvira Cervantes MD PhD [facility] CPT-14892 Level 3 Est. Patient 15:50:32 CDT Tu Landeros MD [facility] CPT-33546 Level 4 Est. Patient 16:08:29 CDT Tu Landeros MD [facility] CPT-63421 Level 3 Est. Patient 16:04:19 CDT Tu Landeros MD [facility] CPT-82864 Level 3 Est. Patient 11:22:30 DIRECTOR BIOSTATISTICS Tu Landeros MD [facility] CPT-55740 Level 4 Est. Patient 16:24:02 DIRECTOR BIOSTATISTICS Tu Landeros MD [facility] CPT-94339 Level 3 Est. Patient 17:21:23 DIRECTOR BIOSTATISTICS Tu Landeros MD [facility] Procedures Code Procedure Name Date Entry Date Standard Description CPT-OV Office Visit 15:45:11 CDT CPT-000 Give Zostavax 14:09:06 CDT CPT-85610 Administration single or combination vaccine inc oral 15 :19:04 CDT CPT-21786 Zoster Vaccine (Zostavax) 15:19:04 CDT CPT-89632 Administration single or combination vaccine inc oral 20 :51:03 CDT CPT-84925 Influenza split virus > age 3 20:51:03 CDT CPT-58203 No Charge Offi Visit 14:52:03 CDT CPT-OV Office Visit 14:57:43 CDT CPT-OV Office Visit 15:22:32 CDT CPT-31002 Administration single or combination vaccine inc oral 11 :33:15 CDT CPT-54209 Influenza split virus > age 3 11:33:15 CDT
--- OUTSIDE RECORDS SUMMARY | 2018-04-25 19:47 | XMS REPORT | Clinical Summary ---
Author Author Admin, SACHI Organization [facility] Address Unknown Phone Allergies, Adverse Reactions, Alerts [...] 6 hours as needed for pain HYDROCODONE-ACETAMINOPHEN 11065265835 Active Tu Landeros MD Active METFORMIN HCL 500 MG TB24 1.5 po BID METFORMIN HCL 87856048835 Active Tu Landeros MD Active GABAPENTIN 100 MG CAPS 3 po tid GABAPENTIN 39351561269 Active Tu Landeros MD Active CIPRO 500 MG TAB 1 tablet by mouth twice daily CIPROFLOXACIN HCL 09544231211 No Longer Active Tu Landeros MD Active VENLAFAXINE HCL 75 MG TABS 1 po BID VENLAFAXINE HCL 88942417454 Active Tu Landeros MD Active VENLAFAXINE HCL 37.5 MG TABS 1 po BID VENLAFAXINE HCL 11128239180 No Longer Active Suze Corey RMA Active [employer] STOOL SOFTENER 100 MG CAPS 1 tab daily DOCUSATE SODIUM 05139102993 Active Tu Landeros MD Active LAMISIL 250 MG TAB 1 po qd TERBINAFINE HCL 90286114912 No Longer Active Tu Landeros MD Active LORTAB 5 5-500 MG TABS 1/2 to 1 tablet by mouth every 4 hours as needed for pain HYDROCODONE-ACETAMINOPHEN 39146272339 No Longer Active Tu Landeros MD Active FENOFIBRATE 145 MG TABS 1 po qd FENOFIBRATE 15636204111 Active Tu Landeros MD Active ENALAPRIL MALEATE 20 MG TABS 1.5 po qd ENALAPRIL MALEATE 36581108679 Active Tu Landeros MD Active HYDROCODONE-ACETAMINOPHEN 5-500 MG TABS take one po Q 4-6 hours prn HYDROCODONE-ACETAMINOPHEN 21920114417 No Longer Active Tu Landeros MD Active BACTRIM DS 800-160 MG TABS 1 po BID x 7 days SULFAMETHOXAZOLE-TRIMETHOPRIM 30084075061 No Longer Active Tu Landeros MD Active VENLAFAXINE HCL 75 MG TABS 1 po BID VENLAFAXINE HCL 58304958217 No Longer Active Elvira Cervantes MD PhD Active TRUERESULT BLOOD GLUCOSE W/DEVICE KIT use to test blood sugar tid dx: 250.00 BLOOD GLUCOSE MONITORING SUPPL 28936190538 Active Tu Landeros MD Active TRUETEST TEST STRP test blood sugar three times daily dx: 250.00 GLUCOSE BLOOD 68887084909 Active Tu Landeros MD Active ACCU-CHEK FASTCLIX LANCETS MISC Use to check bloodsugar three times daily as needed LANCETS 43826162741 No Longer Active Tu Landeros MD Active ACCU-CHEK KEYONA PLUS STRP Use for testing bloodsugars three times daily as needed GLUCOSE BLOOD 42046618855 No Longer Active Tu Landeros MD Active ACCU-CHEK KEYONA PLUS W/DEVICE KIT Use for testing bloodsugars three times daily as needed BLOOD GLUCOSE MONITORING SUPPL 68350171421 No Longer Active Tu Landeros MD Active SPIRONOLACTONE 25 MG TAB 0.5 tablet by mouth daily SPIRONOLACTONE 23151818124 No Longer Active Tu Landeros MD Active TRAMADOL HCL 50 MG TABS 1 tablets every 6 hours as needed for pain TRAMADOL HCL 67492960624 Active Tu Landeros MD Active ALPRAZOLAM 0.5 MG TABS 1 tab every 6hrs as needed ALPRAZOLAM 34612557867 No Longer Active Tu Landeros MD Active B-12 100 MCG TABS Take one by mouth daily CYANOCOBALAMIN 95251254410 Active Tu Landeros MD Active AUGMENTIN 875-125 MG TAB 1 tab by mouth twice daily with food AMOXICILLIN-POT CLAVULANATE 46597802046 No Longer Active Tu Landeros MD Active PREDNISONE 20 MG TAB 2 tabs daily for 3 days, 1 tab daily for 3 days, 1/2 tab daily for 2 days PREDNISONE 22337810363 No Longer Active Tu Landeros MD Active XANAX 0.5 MG TABS 1 tablet every 6 hrs prn ALPRAZOLAM 16113296243 No Longer Active Tu Landeros MD Active PREDNISONE 20 MG TAB 2 tabs daily for 3 days, 1 tab daily for 3 days, 1/2 tab daily for 2 days PREDNISONE 04615287424 No Longer Active Tu Landeros MD Active TRIAMCINOLONE ACETONIDE 0.1 % OINT Apply to affected areas TID for up to 2 weeks TRIAMCINOLONE ACETONIDE 81307682230 No Longer Active Tu Landeros MD Active LORTAB 5 5-500 MG TABS 1/2 to 1 tablet by mouth every 4 hours as needed for pain HYDROCODONE-ACETAMINOPHEN 77516749202 No Longer Active Tu Landeros MD Active MULTIVITAMINS TABS Take one by mouth daily MULTIPLE VITAMIN 15041809114 No Longer Active Tu Landeros MD Active MELATONIN 5 MG TABS Take one by mouth daily MELATONIN 55079770932 No Longer Active Tu Landeros MD Active SOMA 350 MG TAB 1 po q 6 hours prn spasm CARISOPRODOL 24397976401 No Longer Active Tu Landeros MD Active MECLIZINE HCL 25 MG CHEW TAB 1 four times a day as needed for dizziness 08/05 MECLIZINE HCL 84054235701 No Longer Active Fab Deann Andrew MCCORMACK Active ANGLE BREEZE 2 TEST DISK test tid prn GLUCOSE BLOOD 38370083295 No Longer Active Negra Scott MICHAEL Active DICLOFENAC SODIUM 50 MG TBEC 1 tablet by mouth three times a day as needed DICLOFENAC SODIUM 41560937830 Active Tu Landeros MD Active REGLAN 10 MG TAB 1 po TID PRN [place]ause[place] METOCLOPRAMIDE HCL 05001100050 No Longer Active Tu Landeros MD Active METFORMIN HCL 500 MG TABS 1 PO BID METFORMIN HCL 81761257368 No Longer Active Tu Landeros MD Active CARVEDILOL 12.5 MG TABS Take 1 by mouth twice a day CARVEDILOL 82300761340 Active Tu Landeros MD Active AMBIEN 10 MG TAB 1 tab by mouth at bedtime as needed for sleep ZOLPIDEM TARTRATE 59711209163 No Longer Active Tu Landeros MD Active FLUOXETINE HCL 40 MG CAPS 1 po q day FLUOXETINE HCL 93505677787 No Longer Active Mayra [place] Active FISH OIL 1000 MG CAPS Take one by mouth daily OMEGA-3 FATTY ACIDS 40052980568 Active Tu Landeros MD Active GLUCOSAMINE 500 MG TABS Take 2 tab po qd GLUCOSAMINE 27042605198 Active Tu Landeros MD Active TRILIPIX 135 MG CPDR 1 po qd CHOLINE FENOFIBRATE 93673356600 No Longer Active Tu Landeros MD Active ASPIRIN 81 MG CHEW TAB 1 tablet by mouth daily ASPIRIN 56560417117 Active Tu Landeros MD Active FUROSEMIDE 40 MG TAB 1 tablet by mouth daily FUROSEMIDE 49613148760 Active Tu Landeros MD Active REQUIP 2 MG TABS Take one tablet at bedtime prn ROPINIROLE HCL 63295444010 Active Tu Landeros MD Active SIMVASTATIN 40 MG TABS Take one by mouth daily SIMVASTATIN 37318781771 Active Tu Landeros MD Active KLOR-CON 10 10 MEQ CR-TABS TAKE 2 TABS DAILY POTASSIUM CHLORIDE 32523842272 Active Tu Landeros MD Active OMEPRAZOLE 20 MG TBEC 1 PO 30 MIN BEFORE 1ST MEAL OMEPRAZOLE 53081036075 Active Tu Landeros MD Active AMBIEN 10 MG TAB 1 tab by mouth at bedtime as needed for sleep AMBIEN 10 MG TAB 255734 ZOLPIDEM TARTRATE Inactive METFORMIN HCL 500 MG TABS 1 PO BID METFORMIN HCL 500 MG TABS 063258 METFORMIN HCL Inactive REGLAN 10 MG TAB 1 po TID PRN Nausea REGLAN 10 MG TAB 535788 METOCLOPRAMIDE HCL Inactive MECLIZINE HCL 25 MG CHEW TAB 1 four times a day as needed for dizziness 08/05 MECLIZINE HCL 25 MG CHEW TAB 462805 MECLIZINE HCL Inactive SOMA 350 MG TAB 1 po q 6 hours prn spasm SOMA 350 MG TAB 753245 CARISOPRODOL Inactive MELATONIN 5 MG TABS Take one by mouth daily MELATONIN 5 MG TABS 447608 MELATONIN Inactive MULTIVITAMINS TABS Take one by mouth daily MULTIVITAMINS TABS MULTIPLE VITAMIN Inactive LORTAB 5 5-500 MG TABS 1/2 to 1 tablet by mouth every 4 hours as needed for pain LORTAB 5 5-500 MG TABS HYDROCODONE- ACETAMINOPHEN Inactive XANAX 0.5 MG TABS 1 tablet every 6 hrs prn XANAX 0.5 MG TABS 062268 ALPRAZOLAM Inactive AUGMENTIN 875-125 MG TAB 1 tab by mouth twice daily with food AUGMENTIN 875-125 MG TAB 483968 AMOXICILLIN-POT CLAVULANATE Inactive ALPRAZOLAM 0.5 MG TABS 1 tab every 6hrs as needed ALPRAZOLAM 0.5 MG TABS 025407 ALPRAZOLAM Inactive SPIRONOLACTONE 25 MG TAB 0.5 tablet by mouth daily SPIRONOLACTONE 25 MG TAB 857369 SPIRONOLACTONE Inactive ACCU-CHEK KEYONA PLUS W/DEVICE KIT Use for testing bloodsugars three times daily as needed ACCU-CHEK KEYONA PLUS W/DEVICE KIT BLOOD GLUCOSE MONITORING SUPPL Inactive ACCU-CHEK KEYONA PLUS STRP Use for testing bloodsugars three times daily as needed ACCU-CHEK KEYONA PLUS STRP GLUCOSE BLOOD Inactive ACCU-CHEK FASTCLIX LANCETS MISC Use to check bloodsugar three times daily as needed ACCU-CHEK FASTCLIX LANCETS MISC 31373662850 LANCETS Inactive VENLAFAXINE HCL 75 MG TABS 1 po BID VENLAFAXINE HCL 75 MG TABS 144919 VENLAFAXINE HCL Inactive HYDROCODONE-ACETAMINOPHEN 5-500 MG TABS take one po Q 4-6 hours prn HYDROCODONE-ACETAMINOPHEN 5-500 MG TABS 617569 HYDROCODONE- ACETAMINOPHEN Inactive LORTAB 5 5-500 MG TABS 1/2 to 1 tablet by mouth every 4 hours as needed for pain LORTAB 5 5-500 MG TABS HYDROCODONE- ACETAMINOPHEN Inactive LAMISIL 250 MG TAB 1 po qd LAMISIL 250 MG TAB 790133 TERBINAFINE HCL Inactive VENLAFAXINE HCL 37.5 MG TABS 1 po BID VENLAFAXINE HCL 37.5 MG TABS 946943 VENLAFAXINE HCL Inactive CIPRO 500 MG TAB 1 tablet by mouth twice daily CIPRO 500 MG TAB 184780 CIPROFLOXACIN HCL Inactive TRIAMCINOLONE ACETONIDE 0.1 % OINT Apply to affected areas TID for up to 2 weeks TRIAMCINOLONE ACETONIDE 0.1 % OINT 1723798 TRIAMCINOLONE ACETONIDE Inactive PREDNISONE 20 MG TAB 2 tabs daily for 3 days, 1 tab daily for 3 days, 1/2 tab daily for 2 days PREDNISONE 20 MG TAB 571558 PREDNISONE Inactive PREDNISONE 20 MG TAB 2 tabs daily for 3 days, 1 tab daily for 3 days, 1/2 tab daily for 2 days PREDNISONE 20 MG TAB 982060 PREDNISONE Inactive BACTRIM DS 800-160 MG TABS 1 po BID x 7 days BACTRIM DS 800-160 MG TABS SULFAMETHOXAZOLE-TRIMETHOPRIM Inactive Immunizations Vaccine Administration Date Value Standard Description Seasonal influenza vaccine, injectable, containing preservative, for > 3 years old (Afluria, FluLaval, Fluzone, Fluvirin, Fluarix, Agriflu(>=18 yo)) Fluzone (>3 yrs.) [[id number]] Influenza, seasonal, injectable influenza immunization (Flu Vax) has been administered 02/22/2012 influenza virus vaccine, unspecified formulation Seasonal influenza vaccine, injectable, containing preservative, for > 3 years old (Afluria, FluLaval, Fluzone, Fluvirin, Fluarix, Agriflu(>=18 yo)) Fluzone (>3 yrs.) [GNW443] Influenza, seasonal, injectable Vital Signs Date Name [...] Panel - Chemistry sodium, serum 139 mmol/L 557-180 8298/11/27 potassium, serum 4.9 mmol/L 3.5-5.2 chloride, serum [...] Panel - Chemistry sodium, serum 139 mmol/L 344-658 8813/11/22 potassium, serum 4.3 mmol/L 3.5-5.2 chloride, serum [...] HGBA1C - Chemistry sodium, serum 144 mmol/L 139-887 7814/04/16 potassium, serum 4.2 mmol/L 3.5-5.2 chloride, serum [...] 0.20 mg/dL 0.00-1.00 cholesterol, serum 133 mg/dL 576-073 6308/04/16 triglyceride, serum, fasting 142 mg/dL 30-200 HDL cholesterol, serum 38 mg/dL 32-96 LDL cholesterol, serum 67 mg/dL 0-130 hemoglobin A1C, blood, as % of total hemoglobin 7.1 % 4.3-6.0 sodium, serum 142 mmol/L 620-811 4745/10/22 potassium, serum 4.9 mmol/L 3.5-5.2 chloride, serum [...] 0.30 mg/dL 0.00-1.00 cholesterol, serum 139 mg/dL 032-625 1151/10/22 triglyceride, serum, fasting 168 mg/dL 30-200 HDL [...] Yes Encounters Code Encounter Date Provider Facility CPT-40228 Level 4 Est. Patient 09:45:25 CDT Tu Landeros MD [facility] CPT-30974 Level 4 Est. 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 Patient 14:09:06 CDT Tu Landeros MD [facility] CPT-88569 Level 3 Est. Patient 13:36:54 CDT Tu Landeros MD [facility] CPT-53564 Level 3 Est. Patient 08:59:14 CDT Tu Landeros MD [facility] CPT-57742 Level 3 Est. Patient 13:48:35 CDT Fab Morales DO [facility] CPT-12217 Level 4 Est. Patient 10:05:48 CDT Tu Landeros MD [facility] CPT-19185 Level 3 Est. Patient 13:38:42 CDT Marek BANKS [facility] CPT-72878 Level 5 Est. Patient 08:08:39 CDT Jerrica FRANCIS [facility] CPT-44889 Level 4 Est. Patient 14:23:38 CDT Tu Landeros MD [facility] CPT-45654 Level 3 Est. Patient 11:44:04 CDT Tu Landeros MD [facility] CPT-40635 Level 3 Est. 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 Patient 11:03:14 PAPER [employer]ATING SUPERVISOR Tu Landeros MD [facility] CPT-19689 Level 3 Est. Patient 12:42:49 CDT Tu Landeros MD [facility] CPT-98554 Level 3 Est. Patient 11:52:06 CDT Tu Landeros MD [facility] CPT-61818 Level 3 Est. Patient 13:58:11 CDT Tu Landeros MD [facility] CPT-95066 Level 3 Est. Patient 17:50:07 CDT Fab Morales DO [facility] CPT-86985 Level 3 Est. Patient 12:06:29 CDT Elvira Cervantes MD PhD [facility] CPT-70604 Level 3 Est. Patient 15:50:32 CDT Tu Landeros MD [facility] CPT-85115 Level 4 Est. Patient 16:08:29 CDT Tu Landeros MD [facility] CPT-99833 Level 3 Est. Patient 16:04:19 CDT Tu Landeros MD [facility] CPT-72362 Level 3 Est. 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 Patient 16:24:02 PAPER [employer]ATING SUPERVISOR Tu Landeros MD [facility] CPT-53063 Level 3 Est. Patient 17:21:23 PAPER COATING SUPERVISOR Tu Landeros MD [facility] Procedures Code Procedure Name Date Entry Date Standard Description CPT-000 Give Zostavax 14:09:06 CDT CPT-42998 Administration single or combination vaccine inc oral 15 :19:04 CDT CPT-28763 Zoster Vaccine (Zostavax) 15:19:04 CDT CPT-45741 Administration single or combination vaccine inc oral 20 :51:03 CDT CPT-26751 Influenza split virus > age 3 20:51:03 CDT CPT-49244 No Charge Offi Visit 14:52:03 CDT CPT-OV Office Visit 14:57:43 CDT CPT-OV Office Visit 15:22:32 CDT CPT-49317 Administration single or combination vaccine inc oral 11 :33:15 CDT CPT-60082 Influenza split virus > age 3 11:33:15 CDT
--- OUTSIDE RECORDS SUMMARY | 2018-04-25 19:48 | XMS REPORT | Clinical Summary ---
Author Author Admin, SACHI Clemons [facility] Address Unknown Phone Unavailable Allergies, Adverse [...] sugar twice daily dx: 250.00 LANCET DEVICES 79398058392 Active Tu Landeros MD Active TRUEDRAW LANCING DEVICE MISC Test twice a day dx 250.0 LANCET DEVICES 89120974779 Active Tu Landeros MD Active TRUERESULT BLOOD GLUCOSE W/DEVICE KIT test blood sugar twice daily dx 250.00 BLOOD GLUCOSE MONITORING SUPPL 89415589037 Active Tu Landeros MD Active TRUETEST TEST INVITR STRP test blood sugar twice daily. DX 250.0 GLUCOSE BLOOD 42108321303 Active Tu Landeros MD Active EMBRACE BLOOD GLUCOSE TEST STRP test blood sugar twice daily DX 250.0 2014 GLUCOSE BLOOD 50073094661 No Longer Active Tu Landeros MD Active TRUETEST TEST STRP test blood sugar three times daily dx: 250.00 GLUCOSE BLOOD 48852222018 No Longer Active Suze VOGEL Active TRUERESULT BLOOD GLUCOSE W/DEVICE KIT use to test blood sugar tid dx: 250.00 BLOOD GLUCOSE MONITORING SUPPL 28837213863 No Longer Active Suze VOGEL Active ALIGN 4 MG CAPS 1 tid PROBIOTIC PRODUCT 58380170838 No Longer Active Shaun Sy MD Active CIPRO 500 MG TABS 1 bid x 14 days start 09-28-13 CIPROFLOXACIN HCL 38657952868 No Longer Active Shaun Sy MD Active TRAMADOL HCL 50 MG TABS 1-2 tablets every 6 hours as needed for pain TRAMADOL HCL 43666465200 Active Tu Landeros MD Active HYDROCODONE-ACETAMINOPHEN 5-325 MG TABS 1 tab by mouth every 6 hours as needed for pain HYDROCODONE-ACETAMINOPHEN 89940277154 No Longer Active Tu Landeros MD Active OMEPRAZOLE 20 MG CPDR 1 po q a.m. OMEPRAZOLE 62673117378 Active Tu Landeros MD Active GABAPENTIN 100 MG CAPS 1 po bid GABAPENTIN 63703317366 No Longer Active Tu Landeros MD Active B-12 100 MCG TABS Take one by mouth daily CYANOCOBALAMIN 57912338636 No Longer Active Tu Landeros MD Active GABAPENTIN 100 MG CAPS by mouth twice a day GABAPENTIN 45568854898 Active Tu Landeros MD Active BACTRIM DS 800-160 MG TABS 1 bid x 14 day start 09-28-13 SULFAMETHOXAZOLE-TRIMETHOPRIM 64641834303 No Longer Active Tu Landeros MD Active SIMVASTATIN 40 MG TABS 1 tab daily at bedtime SIMVASTATIN 29622435413 Active Tu Landeros MD Active CARVEDILOL 12.5 MG TABS 1 po BID CARVEDILOL 07400457922 Active Tu Landeros MD Active SUPER B COMPLEX/VITAMIN C TABS 1 qd B COMPLEX-C 51194982168 Active JASPREET Perez Active TRILIPIX 135 MG CPDR 1 q hs CHOLINE FENOFIBRATE 82196568913 Active Tu Landeros MD Active FENOFIBRATE 145 MG TABS 1 po qd FENOFIBRATE 48533465725 No Longer Active JASPREET Perez Active OMEPRAZOLE 20 MG TBEC 1 PO 30 MIN BEFORE 1ST MEAL OMEPRAZOLE 48106763168 No Longer Active JASPREET Perez Active SIMVASTATIN 40 MG TABS Take one by mouth daily SIMVASTATIN 32864836509 No Longer Active JASPREET Perez Active VENLAFAXINE HCL 37.5 MG TABS 1 bid VENLAFAXINE HCL 08520518980 Active Tu Landeros MD Active VENLAFAXINE HCL 75 MG TABS 1 po BID VENLAFAXINE HCL 61908012282 No Longer Active JASPREET Perez Active METFORMIN HCL 500 MG TB24 1.5 po BID METFORMIN HCL 10105638911 Active Tu Landeros MD Active CIPRO 500 MG TAB 1 tablet by mouth twice daily CIPROFLOXACIN HCL 56577697136 No Longer Active Tu Landeros MD Active VENLAFAXINE HCL 37.5 MG TABS 1 po BID VENLAFAXINE HCL 89919948529 No Longer Active Suze Nicole RMA Active [employer] STOOL SOFTENER 100 MG CAPS 1 tab daily DOCUSATE SODIUM 54544667369 Active Tu Landeros MD Active LAMISIL 250 MG TAB 1 po qd TERBINAFINE HCL 40261532672 No Longer Active Tu Landeros MD Active LORTAB 5 5-500 MG TABS 1/2 to 1 tablet by mouth every 4 hours as needed for pain HYDROCODONE-ACETAMINOPHEN 78807417315 No Longer Active Tu Landeros MD Active ENALAPRIL MALEATE 20 MG TABS 1.5 po qd ENALAPRIL MALEATE 62633259145 Active Tu Landeros MD Active HYDROCODONE-ACETAMINOPHEN 5-500 MG TABS take one po Q 4-6 hours prn HYDROCODONE-ACETAMINOPHEN 12961751494 No Longer Active Tu Landeros MD Active BACTRIM DS 800-160 MG TABS 1 po BID x 7 days SULFAMETHOXAZOLE-TRIMETHOPRIM 44294929148 No Longer Active Tu Landeros MD Active VENLAFAXINE HCL 75 MG TABS 1 po BID VENLAFAXINE HCL 19548393099 No Longer Active Elvira Cervantes MD PhD Active TRAMADOL HCL 50 MG TABS 1 tablets every 6 hours as needed for pain TRAMADOL HCL 12426460611 No Longer Active Tu Landeros MD Active ACCU-CHEK FASTCLIX LANCETS MISC Use to check bloodsugar three times daily as needed LANCETS 32286991061 No Longer Active Tu Landeros MD Active ACCU-CHEK KEYONA PLUS STRP Use for testing bloodsugars three times daily as needed GLUCOSE BLOOD 54521196870 No Longer Active Tu Landeros MD Active ACCU-CHEK KEYONA PLUS W/DEVICE KIT Use for testing bloodsugars three times daily as needed BLOOD GLUCOSE MONITORING SUPPL 67965480759 No Longer Active Tu Landeros MD Active SPIRONOLACTONE 25 MG TAB 0.5 tablet by mouth daily SPIRONOLACTONE 00623131817 No Longer Active Tu Landeros MD Active ALPRAZOLAM 0.5 MG TABS 1 tab every 6hrs as needed ALPRAZOLAM 44950486689 No Longer Active Tu Landeros MD Active AUGMENTIN 875-125 MG TAB 1 tab by mouth twice daily with food AMOXICILLIN-POT CLAVULANATE 41631204328 No Longer Active Tu Landeros MD Active PREDNISONE 20 MG TAB 2 tabs daily for 3 days, 1 tab daily for 3 days, 1/2 tab daily for 2 days PREDNISONE 22059710702 No Longer Active Tu Landeros MD Active XANAX 0.5 MG TABS 1 tablet every 6 hrs prn ALPRAZOLAM 98538638633 No Longer Active Tu Landeros MD Active PREDNISONE 20 MG TAB 2 tabs daily for 3 days, 1 tab daily for 3 days, 1/2 tab daily for 2 days PREDNISONE 30828925816 No Longer Active Tu Landeros MD Active TRIAMCINOLONE ACETONIDE 0.1 % OINT Apply to affected areas TID for up to 2 weeks TRIAMCINOLONE ACETONIDE 64696712083 No Longer Active Tu Landeros MD Active LORTAB 5 5-500 MG TABS 1/2 to 1 tablet by mouth every 4 hours as needed for pain HYDROCODONE-ACETAMINOPHEN 93352396253 No Longer Active Tu Landeros MD Active MULTIVITAMINS TABS Take one by mouth daily MULTIPLE VITAMIN 07937507824 No Longer Active Tu Landeros MD Active MELATONIN 5 MG TABS Take one by mouth daily MELATONIN 64437671967 No Longer Active Tu Landeros MD Active SOMA 350 MG TAB 1 po q 6 hours prn spasm CARISOPRODOL 72643553269 No Longer Active Tu Landeros MD Active MECLIZINE HCL 25 MG CHEW TAB 1 four times a day as needed for dizziness 08/05 MECLIZINE HCL 87922318861 No Longer Active Fab Morales DO Active ANGEL BREEZE 2 TEST DISK test tid prn GLUCOSE BLOOD 65291688868 No Longer Active Negra Scott RN Active DICLOFENAC SODIUM 50 MG TBEC 1 tablet by mouth three times a day as needed DICLOFENAC SODIUM 51479575439 Active Tu Landeros MD Active REGLAN 10 MG TAB 1 po TID PRN [place] METOCLOPRAMIDE HCL 27888695409 No Longer Active Tu Landeros MD Active METFORMIN HCL 500 MG TABS 1 PO BID METFORMIN HCL 67291493449 No Longer Active Tu Landeros MD Active AMBIEN 10 MG TAB 1 tab by mouth at bedtime as needed for sleep ZOLPIDEM TARTRATE 74989018273 No Longer Active Tu Landeros MD Active FLUOXETINE HCL 40 MG CAPS 1 po q day FLUOXETINE HCL 50686440565 No Longer Active Mayra Donnelly Active FISH OIL 1000 MG CAPS Take one by mouth daily OMEGA-3 FATTY ACIDS 72479257300 Active uT Landeros MD Active GLUCOSAMINE 500 MG TABS Take 2 tab po qd GLUCOSAMINE 94156591556 Active Tu Landeros MD Active TRILIPIX 135 MG CPDR 1 po qd CHOLINE FENOFIBRATE 01657223965 No Longer Active Tu Landeros MD Active ASPIRIN 81 MG CHEW TAB 1 tablet by mouth daily ASPIRIN 69918887957 Active Tu Landeros MD Active FUROSEMIDE 40 MG TAB 1 tablet by mouth daily FUROSEMIDE 27923831526 Active Tu Landeros MD Active REQUIP 2 MG TABS Take one tablet at bedtime prn ROPINIROLE HCL 22486163961 Active Tu Landeros MD Active KLOR-CON 10 10 MEQ CR-TABS TAKE 2 TABS DAILY POTASSIUM CHLORIDE 14024307855 Active Lesli Kellogg SURVEILLANCE DIRECTOR Active AMBIEN 10 MG TAB 1 tab by mouth at bedtime as needed for sleep AMBIEN 10 MG TAB 759750 ZOLPIDEM TARTRATE Inactive METFORMIN HCL 500 MG TABS 1 PO BID METFORMIN HCL 500 MG TABS 475435 METFORMIN HCL Inactive REGLAN 10 MG TAB 1 po TID PRN [place]ausea REGLAN 10 MG TAB 679235 METOCLOPRAMIDE HCL Inactive MECLIZINE HCL 25 MG CHEW TAB 1 four times a day as needed for dizziness 08/05 MECLIZINE HCL 25 MG CHEW TAB 290735 MECLIZINE HCL Inactive SOMA 350 MG TAB 1 po q 6 hours prn spasm SOMA 350 MG TAB 941884 CARISOPRODOL Inactive MELATONIN 5 MG TABS Take one by mouth daily MELATONIN 5 MG TABS 762162 MELATONIN Inactive MULTIVITAMINS TABS Take one by mouth daily MULTIVITAMINS TABS MULTIPLE VITAMIN Inactive LORTAB 5 5-500 MG TABS 1/2 to 1 tablet by mouth every 4 hours as needed for pain LORTAB 5 5-500 MG TABS HYDROCODONE- ACETAMINOPHEN Inactive XANAX 0.5 MG TABS 1 tablet every 6 hrs prn XANAX 0.5 MG TABS 156661 ALPRAZOLAM Inactive AUGMENTIN 875-125 MG TAB 1 tab by mouth twice daily with food AUGMENTIN 875-125 MG TAB 478332 AMOXICILLIN-POT CLAVULANATE Inactive ALPRAZOLAM 0.5 MG TABS 1 tab every 6hrs as needed ALPRAZOLAM 0.5 MG TABS 659431 ALPRAZOLAM Inactive SPIRONOLACTONE 25 MG TAB 0.5 tablet by mouth daily SPIRONOLACTONE 25 MG TAB 539535 SPIRONOLACTONE Inactive ACCU-CHEK KEYONA PLUS W/DEVICE KIT Use for testing bloodsugars three times daily as needed ACCU-CHEK KEYONA PLUS W/DEVICE KIT BLOOD GLUCOSE MONITORING SUPPL Inactive ACCU-CHEK KEYONA PLUS STRP Use for testing bloodsugars three times daily as needed ACCU-CHEK KEYONA PLUS STRP GLUCOSE BLOOD Inactive ACCU-CHEK FASTCLIX LANCETS MISC Use to check bloodsugar three times daily as needed ACCU-CHEK FASTCLIX LANCETS MISC 80435466977 LANCETS Inactive TRAMADOL HCL 50 MG TABS 1 tablets every 6 hours as needed for pain TRAMADOL HCL 50 MG TABS 649780 TRAMADOL HCL Inactive VENLAFAXINE HCL 75 MG TABS 1 po BID VENLAFAXINE HCL 75 MG TABS 477186 VENLAFAXINE HCL Inactive HYDROCODONE-ACETAMINOPHEN 5-500 MG TABS take one po Q 4-6 hours prn HYDROCODONE-ACETAMINOPHEN 5-500 MG TABS HYDROCODONE- ACETAMINOPHEN Inactive LORTAB 5 5-500 MG TABS 1/2 to 1 tablet by mouth every 4 hours as needed for pain LORTAB 5 5-500 MG TABS HYDROCODONE- ACETAMINOPHEN Inactive LAMISIL 250 MG TAB 1 po qd LAMISIL 250 MG TAB 053106 TERBINAFINE HCL Inactive VENLAFAXINE HCL 37.5 MG TABS 1 po BID VENLAFAXINE HCL 37.5 MG TABS 397919 VENLAFAXINE HCL Inactive CIPRO 500 MG TAB 1 tablet by mouth twice daily CIPRO 500 MG TAB 299326 CIPROFLOXACIN HCL Inactive VENLAFAXINE HCL 75 MG TABS 1 po BID VENLAFAXINE HCL 75 MG TABS 969608 VENLAFAXINE HCL Inactive SIMVASTATIN 40 MG TABS Take one by mouth daily SIMVASTATIN 40 MG TABS 048559 SIMVASTATIN Inactive OMEPRAZOLE 20 MG TBEC 1 PO 30 MIN BEFORE 1ST MEAL OMEPRAZOLE 20 MG TBEC 539086 OMEPRAZOLE Inactive FENOFIBRATE 145 MG TABS 1 po qd FENOFIBRATE 145 MG TABS 906643 FENOFIBRATE Inactive BACTRIM DS 800-160 MG TABS 1 bid x 14 day start 09-28-13 10 BACTRIM DS 800-160 MG TABS SULFAMETHOXAZOLE-TRIMETHOPRIM Inactive B-12 100 MCG TABS Take one by mouth daily B-12 100 MCG TABS CYANOCOBALAMIN Inactive GABAPENTIN 100 MG CAPS 1 po bid GABAPENTIN 100 MG CAPS 501431 GABAPENTIN Inactive HYDROCODONE-ACETAMINOPHEN 5-325 MG TABS 1 tab by mouth every 6 hours as needed for pain HYDROCODONE-ACETAMINOPHEN 5-325 MG TABS 791359 HYDROCODONE-ACETAMINOPHEN Inactive CIPRO 500 MG TABS 1 bid x 14 days start 09-28-13 CIPRO 500 MG TABS 594768 CIPROFLOXACIN HCL Inactive ALIGN 4 MG CAPS [...] 2 weeks TRIAMCINOLONE ACETONIDE 0.1 % OINT 3175723 TRIAMCINOLONE ACETONIDE Inactive PREDNISONE 20 MG TAB 2 tabs daily for 3 days, 1 tab daily for 3 days, 1/2 tab daily for 2 days PREDNISONE 20 MG TAB 819564 PREDNISONE Inactive PREDNISONE 20 MG TAB 2 tabs daily for 3 days, 1 tab daily for 3 days, 1/2 tab daily for 2 days PREDNISONE 20 MG TAB 104700 PREDNISONE Inactive BACTRIM DS 800-160 MG TABS 1 po BID x 7 days BACTRIM DS 800-160 MG TABS SULFAMETHOXAZOLE-TRIMETHOPRIM Inactive Immunizations Vaccine Administration Date Value Standard Description Seasonal influenza vaccine, injectable, containing preservative, for > 3 years old (Afluria, FluLaval, Fluzone, Fluvirin, Fluarix, Agriflu(>=18 yo)) Fluzone (>3 yrs.) [BTQ802] Influenza, seasonal, injectable influenza immunization (Flu Vax) has been administered 02/22/2012 influenza virus vaccine, unspecified formulation Seasonal influenza vaccine, injectable, containing preservative, for > 3 years old (Afluria, FluLaval, Fluzone, Fluvirin, Fluarix, Agriflu(>=18 yo)) Fluzone (>3 yrs.) [[id number]] Influenza, seasonal, injectable Vital Signs Date Name [...] HGBA1C - Chemistry sodium, serum 144 mmol/L 409-588 5776/04/16 potassium, serum 4.2 mmol/L 3.5-5.2 chloride, serum [...] 0.20 mg/dL 0.00-1.00 cholesterol, serum 133 mg/dL 672-679 2035/04/16 triglyceride, serum, fasting 142 mg/dL 30-200 HDL [...] mg/dL Encounters Code Encounter Date Provider Facility CPT-00607 Level 4 Est. 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 Patient 09:45:25 CDT Tu Landeros MD [facility] CPT-02852 Level 4 Est. 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 Patient 14:09:06 CDT Tu Landeros MD [facility] CPT-10642 Level 3 Est. Patient 13:36:54 CDT Tu Landeros MD [facility] CPT-43396 Level 3 Est. Patient 08:59:14 CDT Tu Landeros MD [facility] CPT-44119 Level 3 Est. Patient 13:48:35 CDT Fab Morales DO [facility] CPT-81260 Level 4 Est. Patient 10:05:48 CDT Tu Landeros MD [facility] CPT-21079 Level 3 Est. Patient 13:38:42 CDT Marek BANKS [facility] CPT-55301 Level 5 Est. Patient 08:08:39 CDT Jerrica FRANCIS [facility] CPT-82005 Level 4 Est. Patient 14:23:38 CDT Tu Landeros MD [facility] CPT-91297 Level 3 Est. Patient 11:44:04 CDT Tu Landeros MD [facility] CPT-19384 Level 3 Est. 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 Patient 12:42:49 CDT Tu Landeros MD [facility] CPT-15904 Level 3 Est. Patient 11:52:06 CDT Tu Landeros MD [facility] CPT-06532 Level 3 Est. Patient 13:58:11 CDT Tu Landeros MD [facility] CPT-83518 Level 3 Est. Patient 17:50:07 CDT Fab Morales DO [facility] CPT-07341 Level 3 Est. Patient 12:06:29 CDT Elvira Cervantes MD PhD [facility] CPT-57631 Level 3 Est. Patient 15:50:32 CDT Tu Landeros MD [facility] CPT-21609 Level 4 Est. Patient 16:08:29 CDT Tu Landeros MD [facility] CPT-03466 Level 3 Est. Patient 16:04:19 CDT Tu Landeros MD [facility] CPT-97215 Level 3 Est. 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 MULE DRIVER Tu Landeros MD [facility] Procedures Code Procedure Name Date Entry Date Standard Description CPT-JTINJ Asp/Joint Injection 15:51:27 ELECTRIC MULE DRIVER CPT-OV Office Visit 15:52:02 ELECTRIC MULE DRIVER CPT-OV Office Visit 15:45:11 CDT CPT-000 Give Zostavax 14:09:06 CDT CPT-75111 Administration single or combination vaccine inc oral 15 :19:04 CDT CPT-86860 Zoster Vaccine (Zostavax) 15:19:04 CDT CPT-99889 Administration single or combination vaccine inc oral 20 :51:03 CDT CPT-13498 Influenza split virus > age 3 20:51:03 CDT CPT-53778 No Charge Offi Visit 14:52:03 CDT CPT-OV Office Visit 14:57:43 CDT CPT-OV Office Visit 15:22:32 CDT CPT-59159 Administration single or combination vaccine inc oral 11 :33:15 CDT CPT-14703 Influenza split virus > age 3 11:33:15 CDT
--- OUTSIDE RECORDS SUMMARY | 2018-04-25 19:49 | XMS REPORT | Clinical Summary ---
[...] stated as uncontrolled HEALTH SCREENING V70.0 Inactive lEvira Cervantes MD PhD Routine general medical examination [...] 12.5 MG TABS 1 po BID CARVEDILOL 37655673627 Active Tu Landeros MD Active CIPRO 500 MG TABS 1 bid x 14 days start 09-28-13 CIPROFLOXACIN HCL 43662921119 Active JASPREET Perez Active ALIGN 4 MG CAPS 1 tid PROBIOTIC PRODUCT 71228736347 Active JASPREET Perez Active BACTRIM DS 800-160 MG TABS 1 bid x 14 day start 09-28-13 SULFAMETHOXAZOLE-TRIMETHOPRIM 98691434319 Active JASPREET Perez Active GABAPENTIN 300 MG CAPS 1 tid GABAPENTIN 45569777450 Active JASPREET Perez Active SUPER B COMPLEX/VITAMIN C TABS 1 qd B COMPLEX-C 73429077572 Active JASPREET Perez Active TRILIPIX 135 MG CPDR 1 q hs CHOLINE FENOFIBRATE 20084568054 Active Tu Landeros MD Active FENOFIBRATE 145 MG TABS 1 po qd FENOFIBRATE 13915241768 No Longer Active JASPREET Perez Active OMEPRAZOLE 20 MG TBEC 1 PO 30 MIN BEFORE 1ST MEAL OMEPRAZOLE 15546044597 No Longer Active JASPREET Perez Active SIMVASTATIN 40 MG TABS Take one by mouth daily SIMVASTATIN 78226247944 No Longer Active JASPREET Perez Active GABAPENTIN 100 MG CAPS 1 po bid GABAPENTIN 93023058906 Active JASPREET Perez Active VENLAFAXINE HCL 37.5 MG TABS 1 bid VENLAFAXINE HCL 94371996778 Active JASPREET Perez Active VENLAFAXINE HCL 75 MG TABS 1 po BID VENLAFAXINE HCL 98417235608 No Longer Active JASPREET Perez Active HYDROCODONE-ACETAMINOPHEN 5-325 MG TABS 1 tab by mouth every 6 hours as needed for pain HYDROCODONE-ACETAMINOPHEN 88072967002 Active Tu Landeros MD Active METFORMIN HCL 500 MG TB24 1.5 po BID METFORMIN HCL 36337220359 Active Tu Landeros MD Active CIPRO 500 MG TAB 1 tablet by mouth twice daily CIPROFLOXACIN HCL 49446554406 No Longer Active Tu Landeros MD Active VENLAFAXINE HCL 37.5 MG TABS 1 po BID VENLAFAXINE HCL 17399318816 No Longer Active Suze Corey RMA Active [employer] STOOL SOFTENER 100 MG CAPS 1 tab daily DOCUSATE SODIUM 02074432225 Active Tu Landeros MD Active LAMISIL 250 MG TAB 1 po qd TERBINAFINE HCL 64702495935 No Longer Active Tu Landeros MD Active LORTAB 5 5-500 MG TABS 1/2 to 1 tablet by mouth every 4 hours as needed for pain HYDROCODONE-ACETAMINOPHEN 98865829108 No Longer Active Tu Landeros MD Active ENALAPRIL MALEATE 20 MG TABS 1.5 po qd ENALAPRIL MALEATE 60788116293 Active Tu Landeros MD Active HYDROCODONE-ACETAMINOPHEN 5-500 MG TABS take one po Q 4-6 hours prn HYDROCODONE-ACETAMINOPHEN 21706204263 No Longer Active Tu Landeros MD Active BACTRIM DS 800-160 MG TABS 1 po BID x 7 days SULFAMETHOXAZOLE-TRIMETHOPRIM 25208676435 No Longer Active Tu Landeros MD Active VENLAFAXINE HCL 75 MG TABS 1 po BID VENLAFAXINE HCL 35765751654 No Longer Active Elvira Cervantes MD PhD Active TRAMADOL HCL 50 MG TABS 1 tablets every 6 hours as needed for pain TRAMADOL HCL 37299597427 No Longer Active Tu Landeros MD Active TRUERESULT BLOOD GLUCOSE W/DEVICE KIT use to test blood sugar tid dx: 250.00 BLOOD GLUCOSE MONITORING SUPPL 58643978180 Active Tu Landeros MD Active TRUETEST TEST STRP test blood sugar three times daily dx: 250.00 GLUCOSE BLOOD 83654209920 Active Tu Landeros MD Active ACCU-CHEK FASTCLIX LANCETS MISC Use to check bloodsugar three times daily as needed LANCETS 96937476447 No Longer Active Tu Landeros MD Active ACCU-CHEK KEYONA PLUS STRP Use for testing bloodsugars three times daily as needed GLUCOSE BLOOD 98905861854 No Longer Active Tu Landeros MD Active ACCU-CHEK KEYNOA PLUS W/DEVICE KIT Use for testing bloodsugars three times daily as needed BLOOD GLUCOSE MONITORING SUPPL 75814704447 No Longer Active Tu Landeros MD Active SPIRONOLACTONE 25 MG TAB 0.5 tablet by mouth daily SPIRONOLACTONE 49837131098 No Longer Active Tu Landeros MD Active ALPRAZOLAM 0.5 MG TABS 1 tab every 6hrs as needed ALPRAZOLAM 05686305202 No Longer Active Tu Landeros MD Active B-12 100 MCG TABS Take one by mouth daily CYANOCOBALAMIN 69197309004 Active Tu Landeros MD Active AUGMENTIN 875-125 MG TAB 1 tab by mouth twice daily with food AMOXICILLIN-POT CLAVULANATE 74298820733 No Longer Active Tu Landeros MD Active PREDNISONE 20 MG TAB 2 tabs daily for 3 days, 1 tab daily for 3 days, 1/2 tab daily for 2 days PREDNISONE 43325330112 No Longer Active Tu Landeros MD Active XANAX 0.5 MG TABS 1 tablet every 6 hrs prn ALPRAZOLAM 31948957925 No Longer Active Tu Landeros MD Active PREDNISONE 20 MG TAB 2 tabs daily for 3 days, 1 tab daily for 3 days, 1/2 tab daily for 2 days PREDNISONE 59097468993 No Longer Active Tu Landeros MD Active TRIAMCINOLONE ACETONIDE 0.1 % OINT Apply to affected areas TID for up to 2 weeks TRIAMCINOLONE ACETONIDE 73404824772 No Longer Active Tu Landeros MD Active LORTAB 5 5-500 MG TABS 1/2 to 1 tablet by mouth every 4 hours as needed for pain HYDROCODONE-ACETAMINOPHEN 87522743380 No Longer Active Tu Landeros MD Active MULTIVITAMINS TABS Take one by mouth daily MULTIPLE VITAMIN 54176098437 No Longer Active Tu Landeros MD Active MELATONIN 5 MG TABS Take one by mouth daily MELATONIN 74642374611 No Longer Active Tu Landeros MD Active SOMA 350 MG TAB 1 po q 6 hours prn spasm CARISOPRODOL 18938850134 No Longer Active Tu Landeros MD Active MECLIZINE HCL 25 MG CHEW TAB 1 four times a day as needed for dizziness 08/05 MECLIZINE HCL 01333977675 No Longer Active Fab Morales DO Active ANGEL BREEZE 2 TEST DISK test tid prn GLUCOSE BLOOD 28782925217 No Longer Active Negra Scott RN Active DICLOFENAC SODIUM 50 MG TBEC 1 tablet by mouth three times a day as needed DICLOFENAC SODIUM 45977552419 Active Tu Landeros MD Active REGLAN 10 MG TAB 1 po TID PRN Nausea METOCLOPRAMIDE HCL 90284529920 No Longer Active Tu Landeros MD Active METFORMIN HCL 500 MG TABS 1 PO BID METFORMIN HCL 20273620790 No Longer Active Tu Landeros MD Active AMBIEN 10 MG TAB 1 tab by mouth at bedtime as needed for sleep ZOLPIDEM TARTRATE 22356441263 No Longer Active Tu Landeros MD Active FLUOXETINE HCL 40 MG CAPS 1 po q day FLUOXETINE HCL 63936690197 No Longer Active Mayra Terry Active FISH OIL 1000 MG CAPS Take one by mouth daily OMEGA-3 FATTY ACIDS 08956965999 Active Tu Landeros MD Active GLUCOSAMINE 500 MG TABS Take 2 tab po qd GLUCOSAMINE 70923648378 Active Tu Landeros MD Active TRILIPIX 135 MG CPDR 1 po qd CHOLINE FENOFIBRATE 88123954910 No Longer Active Tu Landeros MD Active ASPIRIN 81 MG CHEW TAB 1 tablet by mouth daily ASPIRIN 83720628136 Active Tu Landeros MD Active FUROSEMIDE 40 MG TAB 1 tablet by mouth daily FUROSEMIDE 14502287642 Active Tu Landeros MD Active REQUIP 2 MG TABS Take one tablet at bedtime prn ROPINIROLE HCL 35654397536 Active Tu Landeros MD Active KLOR-CON 10 10 MEQ CR-TABS TAKE 2 TABS DAILY POTASSIUM CHLORIDE 75257360159 Active Tu Landeros MD Active AMBIEN 10 MG TAB 1 tab by mouth at bedtime as needed for sleep AMBIEN 10 MG TAB 231708 ZOLPIDEM TARTRATE Inactive METFORMIN HCL 500 MG TABS 1 PO BID METFORMIN HCL 500 MG TABS 806239 METFORMIN HCL Inactive REGLAN 10 MG TAB 1 po TID PRN Nausea REGLAN 10 MG TAB 804208 METOCLOPRAMIDE HCL Inactive MECLIZINE HCL 25 MG CHEW TAB 1 four times a day as needed for dizziness 08/05 MECLIZINE HCL 25 MG CHEW TAB 132567 MECLIZINE HCL Inactive SOMA 350 MG TAB 1 po q 6 hours prn spasm SOMA 350 MG TAB 277592 CARISOPRODOL Inactive MELATONIN 5 MG TABS Take one by mouth daily MELATONIN 5 MG TABS 979732 MELATONIN Inactive MULTIVITAMINS TABS Take one by mouth daily MULTIVITAMINS TABS MULTIPLE VITAMIN Inactive LORTAB 5 5-500 MG TABS 1/2 to 1 tablet by mouth every 4 hours as needed for pain LORTAB 5 5-500 MG TABS HYDROCODONE- ACETAMINOPHEN Inactive XANAX 0.5 MG TABS 1 tablet every 6 hrs prn XANAX 0.5 MG TABS 328227 ALPRAZOLAM Inactive AUGMENTIN 875-125 MG TAB 1 tab by mouth twice daily with food AUGMENTIN 875-125 MG TAB 900964 AMOXICILLIN-POT CLAVULANATE Inactive ALPRAZOLAM 0.5 MG TABS 1 tab every 6hrs as needed ALPRAZOLAM 0.5 MG TABS 525482 ALPRAZOLAM Inactive SPIRONOLACTONE 25 MG TAB 0.5 tablet by mouth daily SPIRONOLACTONE 25 MG TAB 334969 SPIRONOLACTONE Inactive ACCU-CHEK KEYONA PLUS W/DEVICE KIT Use for testing bloodsugars three times daily as needed ACCU-CHEK KEYONA PLUS W/DEVICE KIT BLOOD GLUCOSE MONITORING SUPPL Inactive ACCU-CHEK KEYONA PLUS STRP Use for testing bloodsugars three times daily as needed ACCU-CHEK KEYONA PLUS STRP GLUCOSE BLOOD Inactive ACCU-CHEK FASTCLIX LANCETS MISC Use to check bloodsugar three times daily as needed ACCU-CHEK FASTCLIX LANCETS MISC 03141796024 LANCETS Inactive TRAMADOL HCL 50 MG TABS 1 tablets every 6 hours as needed for pain TRAMADOL HCL 50 MG TABS 412139 TRAMADOL HCL Inactive VENLAFAXINE HCL 75 MG TABS 1 po BID VENLAFAXINE HCL 75 MG TABS 839495 VENLAFAXINE HCL Inactive HYDROCODONE-ACETAMINOPHEN 5-500 MG TABS take one po Q 4-6 hours prn HYDROCODONE-ACETAMINOPHEN 5-500 MG TABS HYDROCODONE- ACETAMINOPHEN Inactive LORTAB 5 5-500 MG TABS 1/2 to 1 tablet by mouth every 4 hours as needed for pain LORTAB 5 5-500 MG TABS HYDROCODONE- ACETAMINOPHEN Inactive LAMISIL 250 MG TAB 1 po qd LAMISIL 250 MG TAB 403672 TERBINAFINE HCL Inactive VENLAFAXINE HCL 37.5 MG TABS 1 po BID VENLAFAXINE HCL 37.5 MG TABS 121296 VENLAFAXINE HCL Inactive CIPRO 500 MG TAB 1 tablet by mouth twice daily CIPRO 500 MG TAB 551333 CIPROFLOXACIN HCL Inactive VENLAFAXINE HCL 75 MG TABS 1 po BID VENLAFAXINE HCL 75 MG TABS 282084 VENLAFAXINE HCL Inactive SIMVASTATIN 40 MG TABS Take one by mouth daily SIMVASTATIN 40 MG TABS 882728 SIMVASTATIN Inactive OMEPRAZOLE 20 MG TBEC 1 PO 30 MIN BEFORE 1ST MEAL OMEPRAZOLE 20 MG TBEC 561302 OMEPRAZOLE Inactive FENOFIBRATE 145 MG TABS 1 po qd FENOFIBRATE 145 MG TABS 148485 FENOFIBRATE Inactive TRIAMCINOLONE ACETONIDE 0.1 % OINT Apply to affected areas TID for up to 2 weeks TRIAMCINOLONE ACETONIDE 0.1 % OINT 4208670 TRIAMCINOLONE ACETONIDE Inactive PREDNISONE 20 MG TAB 2 tabs daily for 3 days, 1 tab daily for 3 days, 1/2 tab daily for 2 days PREDNISONE 20 MG TAB 844164 PREDNISONE Inactive PREDNISONE 20 MG TAB 2 tabs daily for 3 days, 1 tab daily for 3 days, 1/2 tab daily for 2 days PREDNISONE 20 MG TAB 701919 PREDNISONE Inactive BACTRIM DS 800-160 MG TABS 1 po BID x 7 days BACTRIM DS 800-160 MG TABS SULFAMETHOXAZOLE-TRIMETHOPRIM Inactive Immunizations Vaccine Administration Date Value Standard Description Seasonal influenza vaccine, injectable, containing preservative, for > 3 years old (Afluria, FluLaval, Fluzone, Fluvirin, Fluarix, Agriflu(>=18 yo)) Fluzone (>3 yrs.) [[id number]] Influenza, seasonal, injectable influenza immunization (Flu Vax) has been administered 02/22/2012 influenza virus vaccine, unspecified formulation Seasonal influenza vaccine, injectable, containing preservative, for > 3 years old (Afluria, FluLaval, Fluzone, Fluvirin, Fluarix, Agriflu(>=18 yo)) Fluzone (>3 yrs.) [[id number]] Influenza, seasonal, injectable Vital Signs Date Name [...] Lab Report: Basic Metabolic Panel - Chemistry calcium, serum 9.6 mg/dL 8.5-10.1 urea nitrogen, blood 30 mg/dL 7-18 creatinine, serum 1.50 mg/dL 0.60-1.30 sodium, serum 139 mmol/L 419-453 1766/11/27 potassium, serum 4.9 mmol/L 3.5-5.2 chloride, serum 104 mmol/L 98-107 carbon dioxide, venous blood 29.9 mmol/L 21.0-32.0 blood glucose 128 mg/dL 65-110 Lab Report: CBC W/ DIFF, CMP, TSH, [...] Panel - Chemistry sodium, serum 139 mmol/L 594-554 0038/11/22 potassium, serum 4.3 mmol/L 3.5-5.2 chloride, serum [...] 4.9 mmol/L 3.5-5.2 sodium, serum 142 mmol/L 389-314 8309/10/22 urea nitrogen, blood 25 mg/dL 7-18 creatinine, serum 1.30 mg/dL 0.60-1.30 alanine aminotransferase (SGPT), serum 36 U/L 12-78 aspartate aminotransferase (SGOT), serum 24 U/L 15-37 alkaline phosphatase, serum 86 U/L 50-136 calcium, serum 9.0 mg/dL 8.5-10.1 bilirubin, serum, total 0.30 mg/dL 0.00-1.00 cholesterol, serum 139 mg/dL 671-729 7218/10/22 triglyceride, serum, fasting 168 mg/dL 30-200 HDL cholesterol, serum 40 mg/dL 32-96 LDL cholesterol, serum 65 mg/dL 0-130 hemoglobin A1C, blood, as % of total hemoglobin 6.2 % 4.3-6.0 sodium, serum 144 mmol/L 871-092 1003/04/16 potassium, serum 4.2 mmol/L 3.5-5.2 chloride, serum [...] 0.20 mg/dL 0.00-1.00 cholesterol, serum 133 mg/dL 696-802 4455/04/16 triglyceride, serum, fasting 142 mg/dL 30-200 HDL [...] mg/dL Encounters Code Encounter Date Provider Facility CPT-22006 Level 4 Est. Patient 09:45:25 CDT Tu Landeros MD [facility] CPT-05213 Level 4 Est. Patient 09:05:20 [employer] Tu Landeros MD [facility] CPT-60495 Level 4 Est. Patient 14:09:06 CDT Tu Landeros MD [facility] CPT-88061 Level 3 Est. Patient 13:36:54 CDT Tu Landeros MD [facility] CPT-02282 Level 3 Est. Patient 08:59:14 CDT Tu Landeros MD [facility] CPT-03561 Level 3 Est. Patient 13:48:35 CDT Fab Morales DO [facility] CPT-24755 Level 4 Est. Patient 10:05:48 CDT Tu Landeros MD [facility] CPT-54176 Level 3 Est. Patient 13:38:42 CDT Marek BANKS [facility] CPT-48142 Level 5 Est. Patient 08:08:39 CDT Jerrica FRANCIS [facility] CPT-05923 Level 4 Est. Patient 14:23:38 CDT Tu Landeros MD [facility] CPT-25823 Level 3 Est. Patient 11:44:04 CDT Tu Landeros MD [facility] CPT-20617 Level 3 Est. Patient 11:03:20 [employer] Tu Landeros MD [facility] CPT-34303 Level 3 Est. Patient 11:03:14 [employer] Tu Landeros MD [facility] CPT-12426 Level 3 Est. Patient 12:42:49 CDT Tu Landeros MD [facility] CPT-76376 Level 3 Est. Patient 11:52:06 CDT Tu Landeros MD [facility] CPT-21477 Level 3 Est. Patient 13:58:11 CDT Tu Landeros MD [facility] CPT-12234 Level 3 Est. Patient 17:50:07 CDT Fab Morales DO [facility] CPT-74739 Level 3 Est. Patient 12:06:29 CDT Elvira Cervantes MD [facility] CPT-11517 Level 3 Est. Patient 15:50:32 CDT Tu Landeros MD [facility] CPT-48270 Level 4 Est. Patient 16:08:29 CDT uT Landeros MD [facility] CPT-25685 Level 3 Est. Patient 16:04:19 CDT Tu Landeros MD [facility] CPT-18525 Level 3 Est. Patient 11:22:30 [employer] Tu Landeros MD [facility] CPT-51381 Level 4 Est. Patient 16:24:02 [employer] Tu Landeros MD [facility] CPT-92784 Level 3 Est. Patient 17:21:23 [employer] Tu Landeros MD [facility] Procedures Code Procedure Name Date Entry Date Standard Description CPT-OV Office Visit 15:45:11 CDT CPT-000 Give Zostavax 14:09:06 CDT CPT-78821 Administration single or combination vaccine inc oral 15 :19:04 CDT CPT-19745 Zoster Vaccine (Zostavax) 15:19:04 CDT CPT-65854 Administration single or combination vaccine inc oral 20 :51:03 CDT CPT-40821 Influenza split virus > age 3 20:51:03 CDT CPT-87030 No Charge Offi Visit 14:52:03 CDT CPT-OV Office Visit 14:57:43 CDT CPT-OV Office Visit 15:22:32 CDT CPT-95300 Administration single or combination vaccine inc oral 11 :33:15 CDT CPT-99897 Influenza split virus > age 3 11:33:15 CDT
--- OUTSIDE RECORDS SUMMARY | 2018-04-25 19:50 | XMS REPORT | Clinical Summary ---
Author Author Admin, SACHI Organization [facility] Address Unknown Phone Allergies, Adverse Reactions, [...] 6 hours as needed for pain HYDROCODONE-ACETAMINOPHEN 45196386514 Active Tu Landeros MD Active METFORMIN HCL 500 MG TB24 1.5 po BID METFORMIN HCL 45631373645 Active Tu Landeros MD Active GABAPENTIN 100 MG CAPS 3 po tid GABAPENTIN 50392019407 Active Tu Landeros MD Active CIPRO 500 MG TAB 1 tablet by mouth twice daily CIPROFLOXACIN HCL 70035220555 No Longer Active Tu Landeros MD Active VENLAFAXINE HCL 75 MG TABS 1 po BID VENLAFAXINE HCL 59918704376 Active Tu Landeros MD Active VENLAFAXINE HCL 37.5 MG TABS 1 po BID VENLAFAXINE HCL 58392330210 No Longer Active Suze Corey RMA Active [employer] STOOL SOFTENER 100 MG CAPS 1 tab daily DOCUSATE SODIUM 29372166812 Active Tu Landeros MD Active LAMISIL 250 MG TAB 1 po qd TERBINAFINE HCL 24251047733 No Longer Active Tu Landeros MD Active LORTAB 5 5-500 MG TABS 1/2 to 1 tablet by mouth every 4 hours as needed for pain HYDROCODONE-ACETAMINOPHEN 95367209911 No Longer Active Tu Landeros MD Active FENOFIBRATE 145 MG TABS 1 po qd FENOFIBRATE 82873805174 Active Tu Landeros MD Active ENALAPRIL MALEATE 20 MG TABS 1.5 po qd ENALAPRIL MALEATE 85190057486 Active Tu Landeros MD Active HYDROCODONE-ACETAMINOPHEN 5-500 MG TABS take one po Q 4-6 hours prn HYDROCODONE-ACETAMINOPHEN 47545009247 No Longer Active Tu Landeros MD Active BACTRIM DS 800-160 MG TABS 1 po BID x 7 days SULFAMETHOXAZOLE-TRIMETHOPRIM 80457238962 No Longer Active Tu Landeros MD Active VENLAFAXINE HCL 75 MG TABS 1 po BID VENLAFAXINE HCL 50654745717 No Longer Active Elvira Cervantes MD PhD Active TRUERESULT BLOOD GLUCOSE W/DEVICE KIT use to test blood sugar tid dx: 250.00 BLOOD GLUCOSE MONITORING SUPPL 85241355732 Active Tu Landeros MD Active TRUETEST TEST STRP test blood sugar three times daily dx: 250.00 GLUCOSE BLOOD 54251196478 Active Tu Landeros MD Active ACCU-CHEK FASTCLIX LANCETS MISC Use to check bloodsugar three times daily as needed LANCETS 88428222946 No Longer Active Tu Landeros MD Active ACCU-CHEK KEYONA PLUS STRP Use for testing bloodsugars three times daily as needed GLUCOSE BLOOD 95766682384 No Longer Active Tu Landeros MD Active ACCU-CHEK KEYONA PLUS W/DEVICE KIT Use for testing bloodsugars three times daily as needed BLOOD GLUCOSE MONITORING SUPPL 92263486885 No Longer Active Tu Landeros MD Active SPIRONOLACTONE 25 MG TAB 0.5 tablet by mouth daily SPIRONOLACTONE 50612613472 No Longer Active Tu Landeros MD Active TRAMADOL HCL 50 MG TABS 1 tablets every 6 hours as needed for pain TRAMADOL HCL 80956406001 Active Tu Landeros MD Active ALPRAZOLAM 0.5 MG TABS 1 tab every 6hrs as needed ALPRAZOLAM 90271490950 No Longer Active Tu Landeros MD Active B-12 100 MCG TABS Take one by mouth daily CYANOCOBALAMIN 75514601186 Active Tu Landeros MD Active AUGMENTIN 875-125 MG TAB 1 tab by mouth twice daily with food AMOXICILLIN-POT CLAVULANATE 76651337067 No Longer Active Tu Landeros MD Active PREDNISONE 20 MG TAB 2 tabs daily for 3 days, 1 tab daily for 3 days, 1/2 tab daily for 2 days PREDNISONE 26601008141 No Longer Active Tu Landeros MD Active XANAX 0.5 MG TABS 1 tablet every 6 hrs prn ALPRAZOLAM 83706113447 No Longer Active Tu Landeros MD Active PREDNISONE 20 MG TAB 2 tabs daily for 3 days, 1 tab daily for 3 days, 1/2 tab daily for 2 days PREDNISONE 91339134878 No Longer Active Tu Landeros MD Active TRIAMCINOLONE ACETONIDE 0.1 % OINT Apply to affected areas TID for up to 2 weeks TRIAMCINOLONE ACETONIDE 81086814696 No Longer Active Tu Landeros MD Active LORTAB 5 5-500 MG TABS 1/2 to 1 tablet by mouth every 4 hours as needed for pain HYDROCODONE-ACETAMINOPHEN 82081623308 No Longer Active Tu Landeros MD Active MULTIVITAMINS TABS Take one by mouth daily MULTIPLE VITAMIN 88718494556 No Longer Active Tu Landeros MD Active MELATONIN 5 MG TABS Take one by mouth daily MELATONIN 85704328253 No Longer Active Tu Landeros MD Active SOMA 350 MG TAB 1 po q 6 hours prn spasm CARISOPRODOL 09070154224 No Longer Active Tu Landeros MD Active MECLIZINE HCL 25 MG CHEW TAB 1 four times a day as needed for dizziness 08/05 MECLIZINE HCL 49717585834 No Longer Active Fab Deann Andrew MCCORMACK Active ANGEL BREEZE 2 TEST DISK test tid prn GLUCOSE BLOOD 18282778164 No Longer Active Negra Scott MICHAEL Active DICLOFENAC SODIUM 50 MG TBEC 1 tablet by mouth three times a day as needed DICLOFENAC SODIUM 33764473546 Active Tu Landeros MD Active REGLAN 10 MG TAB 1 po TID PRN Nausea METOCLOPRAMIDE HCL 97277382862 No Longer Active Tu Landeros MD Active METFORMIN HCL 500 MG TABS 1 PO BID METFORMIN HCL 66411983071 No Longer Active Tu Landeros MD Active CARVEDILOL 12.5 MG TABS Take 1 by mouth twice a day CARVEDILOL 57239212208 Active Tu Landeros MD Active AMBIEN 10 MG TAB 1 tab by mouth at bedtime as needed for sleep ZOLPIDEM TARTRATE 24261711397 No Longer Active Tu Landeros MD Active FLUOXETINE HCL 40 MG CAPS 1 po q day FLUOXETINE HCL 42261297316 No Longer Active Mayra Graham Active FISH OIL 1000 MG CAPS Take one by mouth daily OMEGA-3 FATTY ACIDS 11477242687 Active Tu Landeros MD Active GLUCOSAMINE 500 MG TABS Take 2 tab po qd GLUCOSAMINE 65411616542 Active Tu Landeros MD Active TRILIPIX 135 MG CPDR 1 po qd CHOLINE FENOFIBRATE 23594632027 No Longer Active Tu Landeros MD Active ASPIRIN 81 MG CHEW TAB 1 tablet by mouth daily ASPIRIN 82403607695 Active Tu Landeros MD Active FUROSEMIDE 40 MG TAB 1 tablet by mouth daily FUROSEMIDE 99467222464 Active Tu Landeros MD Active REQUIP 2 MG TABS Take one tablet at bedtime prn ROPINIROLE HCL 95184566887 Active Tu Landeros MD Active SIMVASTATIN 40 MG TABS Take one by mouth daily SIMVASTATIN 36316654976 Active Tu Landeros MD Active KLOR-CON 10 10 MEQ CR-TABS TAKE 2 TABS DAILY POTASSIUM CHLORIDE 92822501075 Active Tu Landeros MD Active OMEPRAZOLE 20 MG TBEC 1 PO 30 MIN BEFORE 1ST MEAL OMEPRAZOLE 63835566580 Active Tu Landeros MD Active AMBIEN 10 MG TAB 1 tab by mouth at bedtime as needed for sleep AMBIEN 10 MG TAB 660445 ZOLPIDEM TARTRATE Inactive METFORMIN HCL 500 MG TABS 1 PO BID METFORMIN HCL 500 MG TABS 925846 METFORMIN HCL Inactive REGLAN 10 MG TAB 1 po TID PRN Nausea REGLAN 10 MG TAB 890743 METOCLOPRAMIDE HCL Inactive MECLIZINE HCL 25 MG CHEW TAB 1 four times a day as needed for dizziness 08/05 MECLIZINE HCL 25 MG CHEW TAB 794679 MECLIZINE HCL Inactive SOMA 350 MG TAB 1 po q 6 hours prn spasm SOMA 350 MG TAB 860366 CARISOPRODOL Inactive MELATONIN 5 MG TABS Take one by mouth daily MELATONIN 5 MG TABS 282416 MELATONIN Inactive MULTIVITAMINS TABS Take one by mouth daily MULTIVITAMINS TABS MULTIPLE VITAMIN Inactive LORTAB 5 5-500 MG TABS 1/2 to 1 tablet by mouth every 4 hours as needed for pain LORTAB 5 5-500 MG TABS HYDROCODONE- ACETAMINOPHEN Inactive XANAX 0.5 MG TABS 1 tablet every 6 hrs prn XANAX 0.5 MG TABS 452891 ALPRAZOLAM Inactive AUGMENTIN 875-125 MG TAB 1 tab by mouth twice daily with food AUGMENTIN 875-125 MG TAB 238588 AMOXICILLIN-POT CLAVULANATE Inactive ALPRAZOLAM 0.5 MG TABS 1 tab every 6hrs as needed ALPRAZOLAM 0.5 MG TABS 911978 ALPRAZOLAM Inactive SPIRONOLACTONE 25 MG TAB 0.5 tablet by mouth daily SPIRONOLACTONE 25 MG TAB 817402 SPIRONOLACTONE Inactive ACCU-CHEK KEYONA PLUS W/DEVICE KIT Use for testing bloodsugars three times daily as needed ACCU-CHEK KEYONA PLUS W/DEVICE KIT BLOOD GLUCOSE MONITORING SUPPL Inactive ACCU-CHEK KEYONA PLUS STRP Use for testing bloodsugars three times daily as needed ACCU-CHEK KEYONA PLUS STRP GLUCOSE BLOOD Inactive ACCU-CHEK FASTCLIX LANCETS MISC Use to check bloodsugar three times daily as needed ACCU-CHEK FASTCLIX LANCETS MISC 61562236501 LANCETS Inactive VENLAFAXINE HCL 75 MG TABS 1 po BID VENLAFAXINE HCL 75 MG TABS 889519 VENLAFAXINE HCL Inactive HYDROCODONE-ACETAMINOPHEN 5-500 MG TABS take one po Q 4-6 hours prn HYDROCODONE-ACETAMINOPHEN 5-500 MG TABS 491576 HYDROCODONE- ACETAMINOPHEN Inactive LORTAB 5 5-500 MG TABS 1/2 to 1 tablet by mouth every 4 hours as needed for pain LORTAB 5 5-500 MG TABS HYDROCODONE- ACETAMINOPHEN Inactive LAMISIL 250 MG TAB 1 po qd LAMISIL 250 MG TAB 718324 TERBINAFINE HCL Inactive VENLAFAXINE HCL 37.5 MG TABS 1 po BID VENLAFAXINE HCL 37.5 MG TABS 419001 VENLAFAXINE HCL Inactive CIPRO 500 MG TAB 1 tablet by mouth twice daily CIPRO 500 MG TAB 101914 CIPROFLOXACIN HCL Inactive TRIAMCINOLONE ACETONIDE 0.1 % OINT Apply to affected areas TID for up to 2 weeks TRIAMCINOLONE ACETONIDE 0.1 % OINT 0850644 TRIAMCINOLONE ACETONIDE Inactive PREDNISONE 20 MG TAB 2 tabs daily for 3 days, 1 tab daily for 3 days, 1/2 tab daily for 2 days PREDNISONE 20 MG TAB 283416 PREDNISONE Inactive PREDNISONE 20 MG TAB 2 tabs daily for 3 days, 1 tab daily for 3 days, 1/2 tab daily for 2 days PREDNISONE 20 MG TAB 485648 PREDNISONE Inactive BACTRIM DS 800-160 MG TABS 1 po BID x 7 days BACTRIM DS 800-160 MG TABS SULFAMETHOXAZOLE-TRIMETHOPRIM Inactive Immunizations Vaccine Administration Date Value Standard Description Seasonal influenza vaccine, injectable, containing preservative, for > 3 years old (Afluria, FluLaval, Fluzone, Fluvirin, Fluarix, Agriflu(>=18 yo)) Fluzone (>3 yrs.) [[id number]] Influenza, seasonal, injectable influenza immunization (Flu Vax) has been administered 02/22/2012 influenza virus vaccine, unspecified formulation Seasonal influenza vaccine, injectable, containing preservative, for > 3 years old (Afluria, FluLaval, Fluzone, Fluvirin, Fluarix, Agriflu(>=18 yo)) Fluzone (>3 yrs.) [[id number]] Influenza, seasonal, injectable Vital Signs Date Name [...] Panel - Chemistry sodium, serum 139 mmol/L 714-253 4218/11/27 potassium, serum 4.9 mmol/L 3.5-5.2 chloride, serum [...] Panel - Chemistry sodium, serum 139 mmol/L 357-098 8177/11/22 potassium, serum 4.3 mmol/L 3.5-5.2 chloride, serum [...] HGBA1C - Chemistry sodium, serum 144 mmol/L 776-497 7278/04/16 potassium, serum 4.2 mmol/L 3.5-5.2 chloride, serum [...] 0.20 mg/dL 0.00-1.00 cholesterol, serum 133 mg/dL 105-080 4008/04/16 triglyceride, serum, fasting 142 mg/dL 30-200 HDL cholesterol, serum 38 mg/dL 32-96 LDL cholesterol, serum 67 mg/dL 0-130 hemoglobin A1C, blood, as % of total hemoglobin 7.1 % 4.3-6.0 sodium, serum 142 mmol/L 016-822 3691/10/22 potassium, serum 4.9 mmol/L 3.5-5.2 chloride, serum [...] 0.30 mg/dL 0.00-1.00 cholesterol, serum 139 mg/dL 534-430 0353/10/22 triglyceride, serum, fasting 168 mg/dL 30-200 HDL [...] Yes Encounters Code Encounter Date Provider Facility CPT-08697 Level 4 Est. Patient 09:45:25 CDT Tu Landeros MD [facility] CPT-06191 Level 4 Est. 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 Patient 14:09:06 CDT Tu Landeros MD [facility] CPT-06120 Level 3 Est. Patient 13:36:54 CDT Tu Landeros MD [facility] CPT-09084 Level 3 Est. Patient 08:59:14 CDT Tu Landeros MD [facility] CPT-83682 Level 3 Est. Patient 13:48:35 CDT Fab Morales DO [facility] CPT-04200 Level 4 Est. Patient 10:05:48 CDT Tu Landeros MD [facility] CPT-28108 Level 3 Est. Patient 13:38:42 CDT Marek BANKS [facility] CPT-28179 Level 5 Est. Patient 08:08:39 CDT Jerrica FRANCIS [facility] CPT-04923 Level 4 Est. Patient 14:23:38 CDT Tu Landeros MD [facility] CPT-37024 Level 3 Est. Patient 11:44:04 CDT Tu Landeros MD [facility] CPT-76117 Level 3 Est. 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 Patient 12:42:49 CDT Tu Landeros MD [facility] CPT-05249 Level 3 Est. Patient 11:52:06 CDT Tu Landeros MD [facility] CPT-41969 Level 3 Est. Patient 13:58:11 CDT Tu Landeros MD [facility] CPT-72134 Level 3 Est. Patient 17:50:07 CDT Fab Morales DO [facility] CPT-53798 Level 3 Est. Patient 12:06:29 CDT Elvira Cervantes MD PhD [facility] CPT-93790 Level 3 Est. Patient 15:50:32 CDT Tu Landeros MD [facility] CPT-36399 Level 4 Est. Patient 16:08:29 CDT Tu Landeros MD [facility] CPT-14781 Level 3 Est. Patient 16:04:19 CDT Tu Landeros MD [facility] CPT-65108 Level 3 Est. 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 Patient 16:24:02 INSTRUCTIONAL RESOURCE TEACHER Tu Landeros MD [facility] CPT-55472 Level 3 Est. Patient 17:21:23 INSTRUCTIONAL RESOURCE TEACHER Tu Landeros MD [facility] Procedures Code Procedure Name Date Entry Date Standard Description CPT-000 Give Zostavax 14:09:06 CDT CPT-00856 Administration single or combination vaccine inc oral 15 :19:04 CDT CPT-73783 Zoster Vaccine (Zostavax) 15:19:04 CDT CPT-89383 Administration single or combination vaccine inc oral 20 :51:03 CDT CPT-80915 Influenza split virus > age 3 20:51:03 CDT CPT-52462 No Charge Offi Visit 14:52:03 CDT CPT-OV Office Visit 14:57:43 CDT CPT-OV Office Visit 15:22:32 CDT CPT-60737 Administration single or combination vaccine inc oral 11 :33:15 CDT CPT-86901 Influenza split virus > age 3 11:33:15 CDT
--- OUTSIDE RECORDS SUMMARY | 2018-04-25 19:51 | XMS REPORT | Clinical Summary ---
Author Author Admin, SACHI Organization [facility] Address Unknown Phone Allergies, Adverse Reactions, Alerts [...] 6 hours as needed for pain HYDROCODONE-ACETAMINOPHEN 68637657585 Active Tu Landeros MD Active METFORMIN HCL 500 MG TB24 1.5 po BID METFORMIN HCL 51020338479 Active Tu Landeros MD Active GABAPENTIN 100 MG CAPS 3 po tid GABAPENTIN 28514358299 Active Tu Landeros MD Active CIPRO 500 MG TAB 1 tablet by mouth twice daily CIPROFLOXACIN HCL 92902133104 No Longer Active Tu Landeros MD Active VENLAFAXINE HCL 75 MG TABS 1 po BID VENLAFAXINE HCL 71664192609 Active Tu Landeros MD Active VENLAFAXINE HCL 37.5 MG TABS 1 po BID VENLAFAXINE HCL 92614762060 No Longer Active Suze Corey RMA Active [employer] STOOL SOFTENER 100 MG CAPS 1 tab daily DOCUSATE SODIUM 99551926464 Active Tu Landeros MD Active LAMISIL 250 MG TAB 1 po qd TERBINAFINE HCL 26436017539 No Longer Active Tu Landeros MD Active LORTAB 5 5-500 MG TABS 1/2 to 1 tablet by mouth every 4 hours as needed for pain HYDROCODONE-ACETAMINOPHEN 24740403542 No Longer Active Tu Landeros MD Active FENOFIBRATE 145 MG TABS 1 po qd FENOFIBRATE 43392359188 Active Tu Landeros MD Active ENALAPRIL MALEATE 20 MG TABS 1.5 po qd ENALAPRIL MALEATE 28423130660 Active Tu Landeros MD Active HYDROCODONE-ACETAMINOPHEN 5-500 MG TABS take one po Q 4-6 hours prn HYDROCODONE-ACETAMINOPHEN 69894632978 No Longer Active Tu Landeros MD Active BACTRIM DS 800-160 MG TABS 1 po BID x 7 days SULFAMETHOXAZOLE-TRIMETHOPRIM 02716658877 No Longer Active Tu Landeros MD Active VENLAFAXINE HCL 75 MG TABS 1 po BID VENLAFAXINE HCL 13091491034 No Longer Active Elvira Cervantes MD PhD Active TRUERESULT BLOOD GLUCOSE W/DEVICE KIT use to test blood sugar tid dx: 250.00 BLOOD GLUCOSE MONITORING SUPPL 02162152877 Active Tu Landeros MD Active TRUETEST TEST STRP test blood sugar three times daily dx: 250.00 GLUCOSE BLOOD 95182425360 Active Tu Landeros MD Active ACCU-CHEK FASTCLIX LANCETS MISC Use to check bloodsugar three times daily as needed LANCETS 51088497498 No Longer Active Tu Landeros MD Active ACCU-CHEK KEYONA PLUS STRP Use for testing bloodsugars three times daily as needed GLUCOSE BLOOD 53007592319 No Longer Active Tu Landeros MD Active ACCU-CHEK KEYONA PLUS W/DEVICE KIT Use for testing bloodsugars three times daily as needed BLOOD GLUCOSE MONITORING SUPPL 16347893822 No Longer Active Tu Landeros MD Active SPIRONOLACTONE 25 MG TAB 0.5 tablet by mouth daily SPIRONOLACTONE 97415783598 No Longer Active Tu Landeros MD Active TRAMADOL HCL 50 MG TABS 1 tablets every 6 hours as needed for pain TRAMADOL HCL 26609740931 Active Tu Landeros MD Active ALPRAZOLAM 0.5 MG TABS 1 tab every 6hrs as needed ALPRAZOLAM 63493892329 No Longer Active Tu Landeros MD Active B-12 100 MCG TABS Take one by mouth daily CYANOCOBALAMIN 58624264712 Active Tu Landeros MD Active AUGMENTIN 875-125 MG TAB 1 tab by mouth twice daily with food AMOXICILLIN-POT CLAVULANATE 86181107215 No Longer Active Tu Landeros MD Active PREDNISONE 20 MG TAB 2 tabs daily for 3 days, 1 tab daily for 3 days, 1/2 tab daily for 2 days PREDNISONE 79305328484 No Longer Active Tu Landeros MD Active XANAX 0.5 MG TABS 1 tablet every 6 hrs prn ALPRAZOLAM 65127163791 No Longer Active Tu Landeros MD Active PREDNISONE 20 MG TAB 2 tabs daily for 3 days, 1 tab daily for 3 days, 1/2 tab daily for 2 days PREDNISONE 23492973614 No Longer Active Tu Landeros MD Active TRIAMCINOLONE ACETONIDE 0.1 % OINT Apply to affected areas TID for up to 2 weeks TRIAMCINOLONE ACETONIDE 45853554250 No Longer Active Tu Landeros MD Active LORTAB 5 5-500 MG TABS 1/2 to 1 tablet by mouth every 4 hours as needed for pain HYDROCODONE-ACETAMINOPHEN 55237325994 No Longer Active Tu Landeros MD Active MULTIVITAMINS TABS Take one by mouth daily MULTIPLE VITAMIN 54462640779 No Longer Active Tu Landeros MD Active MELATONIN 5 MG TABS Take one by mouth daily MELATONIN 61183339933 No Longer Active Tu Landeros MD Active SOMA 350 MG TAB 1 po q 6 hours prn spasm CARISOPRODOL 15183725097 No Longer Active Tu Landeros MD Active MECLIZINE HCL 25 MG CHEW TAB 1 four times a day as needed for dizziness 08/05 MECLIZINE HCL 22642550401 No Longer Active Fab Deann Andrew MCCORMACK Active ANGEL BREEZE 2 TEST DISK test tid prn GLUCOSE BLOOD 97468075531 No Longer Active Negra Scott MICHAEL Active DICLOFENAC SODIUM 50 MG TBEC 1 tablet by mouth three times a day as needed DICLOFENAC SODIUM 66390421633 Active Tu Landeros MD Active REGLAN 10 MG TAB 1 po TID PRN [place] METOCLOPRAMIDE HCL 20035762614 No Longer Active Tu Landeros MD Active METFORMIN HCL 500 MG TABS 1 PO BID METFORMIN HCL 11421562222 No Longer Active Tu Landeros MD Active CARVEDILOL 12.5 MG TABS Take 1 by mouth twice a day CARVEDILOL 59024214422 Active Tu Landeros MD Active AMBIEN 10 MG TAB 1 tab by mouth at bedtime as needed for sleep ZOLPIDEM TARTRATE 99275446541 No Longer Active Tu Landeros MD Active FLUOXETINE HCL 40 MG CAPS 1 po q day FLUOXETINE HCL 14907383716 No Longer Active Mayra Rarden Active FISH OIL 1000 MG CAPS Take one by mouth daily OMEGA-3 FATTY ACIDS 27140872057 Active Tu Landeros MD Active GLUCOSAMINE 500 MG TABS Take 2 tab po qd GLUCOSAMINE 79229385879 Active Tu Landeros MD Active TRILIPIX 135 MG CPDR 1 po qd CHOLINE FENOFIBRATE 85632117705 No Longer Active Tu Landeros MD Active ASPIRIN 81 MG CHEW TAB 1 tablet by mouth daily ASPIRIN 83566802368 Active Tu Landeros MD Active FUROSEMIDE 40 MG TAB 1 tablet by mouth daily FUROSEMIDE 76633775371 Active Tu Landeros MD Active REQUIP 2 MG TABS Take one tablet at bedtime prn ROPINIROLE HCL 20851873247 Active Tu Landeros MD Active SIMVASTATIN 40 MG TABS Take one by mouth daily SIMVASTATIN 26066287411 Active Tu Landeros MD Active KLOR-CON 10 10 MEQ CR-TABS TAKE 2 TABS DAILY POTASSIUM CHLORIDE 15214768323 Active Tu Landeros MD Active OMEPRAZOLE 20 MG TBEC 1 PO 30 MIN BEFORE 1ST MEAL OMEPRAZOLE 56748448931 Active Tu Landeros MD Active AMBIEN 10 MG TAB 1 tab by mouth at bedtime as needed for sleep AMBIEN 10 MG TAB 685716 ZOLPIDEM TARTRATE Inactive METFORMIN HCL 500 MG TABS 1 PO BID METFORMIN HCL 500 MG TABS 433678 METFORMIN HCL Inactive REGLAN 10 MG TAB 1 po TID PRN Nausea REGLAN 10 MG TAB 699015 METOCLOPRAMIDE HCL Inactive MECLIZINE HCL 25 MG CHEW TAB 1 four times a day as needed for dizziness 08/05 MECLIZINE HCL 25 MG CHEW TAB 830344 MECLIZINE HCL Inactive SOMA 350 MG TAB 1 po q 6 hours prn spasm SOMA 350 MG TAB 502792 CARISOPRODOL Inactive MELATONIN 5 MG TABS Take one by mouth daily MELATONIN 5 MG TABS 559187 MELATONIN Inactive MULTIVITAMINS TABS Take one by mouth daily MULTIVITAMINS TABS MULTIPLE VITAMIN Inactive LORTAB 5 5-500 MG TABS 1/2 to 1 tablet by mouth every 4 hours as needed for pain LORTAB 5 5-500 MG TABS HYDROCODONE- ACETAMINOPHEN Inactive XANAX 0.5 MG TABS 1 tablet every 6 hrs prn XANAX 0.5 MG TABS 560411 ALPRAZOLAM Inactive AUGMENTIN 875-125 MG TAB 1 tab by mouth twice daily with food AUGMENTIN 875-125 MG TAB 081969 AMOXICILLIN-POT CLAVULANATE Inactive ALPRAZOLAM 0.5 MG TABS 1 tab every 6hrs as needed ALPRAZOLAM 0.5 MG TABS 210072 ALPRAZOLAM Inactive SPIRONOLACTONE 25 MG TAB 0.5 tablet by mouth daily SPIRONOLACTONE 25 MG TAB 250010 SPIRONOLACTONE Inactive ACCU-CHEK KEYONA PLUS W/DEVICE KIT Use for testing bloodsugars three times daily as needed ACCU-CHEK KEYONA PLUS W/DEVICE KIT BLOOD GLUCOSE MONITORING SUPPL Inactive ACCU-CHEK KEYONA PLUS STRP Use for testing bloodsugars three times daily as needed ACCU-CHEK KEOYNA PLUS STRP GLUCOSE BLOOD Inactive ACCU-CHEK FASTCLIX LANCETS MISC Use to check bloodsugar three times daily as needed ACCU-CHEK FASTCLIX LANCETS MISC 85336380207 LANCETS Inactive VENLAFAXINE HCL 75 MG TABS 1 po BID VENLAFAXINE HCL 75 MG TABS 844676 VENLAFAXINE HCL Inactive HYDROCODONE-ACETAMINOPHEN 5-500 MG TABS take one po Q 4-6 hours prn HYDROCODONE-ACETAMINOPHEN 5-500 MG TABS 403005 HYDROCODONE- ACETAMINOPHEN Inactive LORTAB 5 5-500 MG TABS 1/2 to 1 tablet by mouth every 4 hours as needed for pain LORTAB 5 5-500 MG TABS HYDROCODONE- ACETAMINOPHEN Inactive LAMISIL 250 MG TAB 1 po qd LAMISIL 250 MG TAB 041876 TERBINAFINE HCL Inactive VENLAFAXINE HCL 37.5 MG TABS 1 po BID VENLAFAXINE HCL 37.5 MG TABS 235984 VENLAFAXINE HCL Inactive CIPRO 500 MG TAB 1 tablet by mouth twice daily CIPRO 500 MG TAB 900368 CIPROFLOXACIN HCL Inactive TRIAMCINOLONE ACETONIDE 0.1 % OINT Apply to affected areas TID for up to 2 weeks TRIAMCINOLONE ACETONIDE 0.1 % OINT 0987776 TRIAMCINOLONE ACETONIDE Inactive PREDNISONE 20 MG TAB 2 tabs daily for 3 days, 1 tab daily for 3 days, 1/2 tab daily for 2 days PREDNISONE 20 MG TAB 370046 PREDNISONE Inactive PREDNISONE 20 MG TAB 2 tabs daily for 3 days, 1 tab daily for 3 days, 1/2 tab daily for 2 days PREDNISONE 20 MG TAB 144022 PREDNISONE Inactive BACTRIM DS 800-160 MG TABS 1 po BID x 7 days BACTRIM DS 800-160 MG TABS SULFAMETHOXAZOLE-TRIMETHOPRIM Inactive Immunizations Vaccine Administration Date Value Standard Description Seasonal influenza vaccine, injectable, containing preservative, for > 3 years old (Afluria, FluLaval, Fluzone, Fluvirin, Fluarix, Agriflu(>=18 yo)) Fluzone (>3 yrs.) [[id number]] Influenza, seasonal, injectable influenza immunization (Flu Vax) has been administered 02/22/2012 influenza virus vaccine, unspecified formulation Seasonal influenza vaccine, injectable, containing preservative, for > 3 years old (Afluria, FluLaval, Fluzone, Fluvirin, Fluarix, Agriflu(>=18 yo)) Fluzone (>3 yrs.) [[id number]] Influenza, seasonal, injectable Vital Signs Date Name [...] Panel - Chemistry sodium, serum 139 mmol/L 304-886 7019/11/27 potassium, serum 4.9 mmol/L 3.5-5.2 chloride, serum [...] Panel - Chemistry sodium, serum 139 mmol/L 357-415 4967/11/22 potassium, serum 4.3 mmol/L 3.5-5.2 chloride, serum [...] HGBA1C - Chemistry sodium, serum 144 mmol/L 467-860 0273/04/16 potassium, serum 4.2 mmol/L 3.5-5.2 chloride, serum [...] 0.20 mg/dL 0.00-1.00 cholesterol, serum 133 mg/dL 173-079 1625/04/16 triglyceride, serum, fasting 142 mg/dL 30-200 HDL cholesterol, serum 38 mg/dL 32-96 LDL cholesterol, serum 67 mg/dL 0-130 hemoglobin A1C, blood, as % of total hemoglobin 7.1 % 4.3-6.0 sodium, serum 142 mmol/L 605-838 3245/10/22 potassium, serum 4.9 mmol/L 3.5-5.2 chloride, serum [...] 0.30 mg/dL 0.00-1.00 cholesterol, serum 139 mg/dL 332-327 1147/10/22 triglyceride, serum, fasting 168 mg/dL 30-200 HDL [...] Yes Encounters Code Encounter Date Provider Facility CPT-12169 Level 4 Est. Patient 09:45:25 CDT Tu Landeros MD [facility] CPT-99502 Level 4 Est. Patient 09:05:20 [employer] Tu Landeros MD [facility] CPT-52055 Level 4 Est. Patient 14:09:06 CDT Tu Landeros MD [facility] CPT-93937 Level 3 Est. Patient 13:36:54 CDT Tu Landeros MD [facility] CPT-55542 Level 3 Est. Patient 08:59:14 CDT Tu Landeros MD [facility] CPT-38180 Level 3 Est. Patient 13:48:35 CDT Fab Morales DO [facility] CPT-35254 Level 4 Est. Patient 10:05:48 CDT Tu Landeros MD [facility] CPT-46399 Level 3 Est. Patient 13:38:42 CDT Marek BANKS [facility] CPT-05456 Level 5 Est. Patient 08:08:39 CDT Jerrica FRANCIS [facility] CPT-51491 Level 4 Est. Patient 14:23:38 CDT Tu Landeros MD [facility] CPT-48942 Level 3 Est. Patient 11:44:04 CDT Tu Landeros MD [facility] CPT-08036 Level 3 Est. Patient 11:03:20 [employer] Tu Landeros MD [facility] CPT-42627 Level 3 Est. Patient 11:03:14 [employer] Tu Landeros MD [facility] CPT-97609 Level 3 Est. Patient 12:42:49 CDT Tu Landeros MD [facility] CPT-75102 Level 3 Est. Patient 11:52:06 CDT Tu Landeros MD [facility] CPT-18476 Level 3 Est. Patient 13:58:11 CDT Tu Landeros MD [facility] CPT-32122 Level 3 Est. Patient 17:50:07 CDT Fab Morales DO [facility] CPT-75897 Level 3 Est. Patient 12:06:29 CDT Elvira Cervantes MD PhD [facility] CPT-99173 Level 3 Est. Patient 15:50:32 CDT Tu Landeros MD [facility] CPT-23466 Level 4 Est. Patient 16:08:29 CDT Tu Landeros MD [facility] CPT-97534 Level 3 Est. Patient 16:04:19 CDT Tu Landeros MD [facility] CPT-28373 Level 3 Est. Patient 11:22:30 [employer] Tu Landeros MD [facility] CPT-25993 Level 4 Est. Patient 16:24:02 [employer] Tu Landeros MD [facility] CPT-90189 Level 3 Est. Patient 17:21:23 [employer] Tu Landeros MD [facility] Procedures Code Procedure Name Date Entry Date Standard Description CPT-000 Give Zostavax 14:09:06 CDT CPT-57828 Administration single or combination vaccine inc oral 15 :19:04 CDT CPT-48891 Zoster Vaccine (Zostavax) 15:19:04 CDT CPT-15441 Administration single or combination vaccine inc oral 20 :51:03 CDT CPT-05121 Influenza split virus > age 3 20:51:03 CDT CPT-84082 No Charge Offi Visit 14:52:03 CDT CPT-OV Office Visit 14:57:43 CDT CPT-OV Office Visit 15:22:32 CDT CPT-02582 Administration single or combination vaccine inc oral 11 :33:15 CDT CPT-78036 Influenza split virus > age 3 11:33:15 CDT
--- OUTSIDE RECORDS SUMMARY | 2018-04-25 19:53 | XMS REPORT | Clinical Summary ---
Author Author Admin, SACHI Organization [facility] Address Unknown Phone Allergies, Adverse [...] 6 hours as needed for pain HYDROCODONE-ACETAMINOPHEN 70451232698 Active Tu Landeros MD Active METFORMIN HCL 500 MG TB24 1.5 po BID METFORMIN HCL 65483988941 Active Tu Landeros MD Active GABAPENTIN 100 MG CAPS 3 po tid GABAPENTIN 58144825510 Active Tu Landeros MD Active CIPRO 500 MG TAB 1 tablet by mouth twice daily CIPROFLOXACIN HCL 50826721932 No Longer Active Tu Landeros MD Active VENLAFAXINE HCL 75 MG TABS 1 po BID VENLAFAXINE HCL 96883434775 Active Tu Landeros MD Active VENLAFAXINE HCL 37.5 MG TABS 1 po BID VENLAFAXINE HCL 91022009416 No Longer Active Suze Corey RMA Active [employer] STOOL SOFTENER 100 MG CAPS 1 tab daily DOCUSATE SODIUM 89643279283 Active Tu Landeros MD Active LAMISIL 250 MG TAB 1 po qd TERBINAFINE HCL 34391278637 No Longer Active Tu Landeros MD Active LORTAB 5 5-500 MG TABS 1/2 to 1 tablet by mouth every 4 hours as needed for pain HYDROCODONE-ACETAMINOPHEN 72061103281 No Longer Active Tu Landeros MD Active FENOFIBRATE 145 MG TABS 1 po qd FENOFIBRATE 13548767639 Active Tu Landeros MD Active ENALAPRIL MALEATE 20 MG TABS 1.5 po qd ENALAPRIL MALEATE 49026004769 Active Tu Landeros MD Active HYDROCODONE-ACETAMINOPHEN 5-500 MG TABS take one po Q 4-6 hours prn HYDROCODONE-ACETAMINOPHEN 07424976642 No Longer Active Tu Landeros MD Active BACTRIM DS 800-160 MG TABS 1 po BID x 7 days SULFAMETHOXAZOLE-TRIMETHOPRIM 75558961241 No Longer Active Tu Landeros MD Active VENLAFAXINE HCL 75 MG TABS 1 po BID VENLAFAXINE HCL 21454985272 No Longer Active Elvira Cervantes MD PhD Active TRUERESULT BLOOD GLUCOSE W/DEVICE KIT use to test blood sugar tid dx: 250.00 BLOOD GLUCOSE MONITORING SUPPL 98906364178 Active Tu Landeros MD Active TRUETEST TEST STRP test blood sugar three times daily dx: 250.00 GLUCOSE BLOOD 62095713395 Active Tu Landeros MD Active ACCU-CHEK FASTCLIX LANCETS MISC Use to check bloodsugar three times daily as needed LANCETS 26827127098 No Longer Active Tu Landeros MD Active ACCU-CHEK KEYONA PLUS STRP Use for testing bloodsugars three times daily as needed GLUCOSE BLOOD 40991560672 No Longer Active Tu Landeros MD Active ACCU-CHEK KEYONA PLUS W/DEVICE KIT Use for testing bloodsugars three times daily as needed BLOOD GLUCOSE MONITORING SUPPL 74745682349 No Longer Active Tu Landeros MD Active SPIRONOLACTONE 25 MG TAB 0.5 tablet by mouth daily SPIRONOLACTONE 53582923921 No Longer Active Tu Landeros MD Active TRAMADOL HCL 50 MG TABS 1 tablets every 6 hours as needed for pain TRAMADOL HCL 65005576643 Active Tu Landeros MD Active ALPRAZOLAM 0.5 MG TABS 1 tab every 6hrs as needed ALPRAZOLAM 15492726017 No Longer Active Tu Landeros MD Active B-12 100 MCG TABS Take one by mouth daily CYANOCOBALAMIN 76813238717 Active Tu Landeros MD Active AUGMENTIN 875-125 MG TAB 1 tab by mouth twice daily with food AMOXICILLIN-POT CLAVULANATE 71818708415 No Longer Active Tu Landeros MD Active PREDNISONE 20 MG TAB 2 tabs daily for 3 days, 1 tab daily for 3 days, 1/2 tab daily for 2 days PREDNISONE 73264785962 No Longer Active Tu Landeros MD Active XANAX 0.5 MG TABS 1 tablet every 6 hrs prn ALPRAZOLAM 40170530360 No Longer Active Tu Landeros MD Active PREDNISONE 20 MG TAB 2 tabs daily for 3 days, 1 tab daily for 3 days, 1/2 tab daily for 2 days PREDNISONE 95394068668 No Longer Active Tu Landeros MD Active TRIAMCINOLONE ACETONIDE 0.1 % OINT Apply to affected areas TID for up to 2 weeks TRIAMCINOLONE ACETONIDE 81879167736 No Longer Active Tu Landeros MD Active LORTAB 5 5-500 MG TABS 1/2 to 1 tablet by mouth every 4 hours as needed for pain HYDROCODONE-ACETAMINOPHEN 40052764182 No Longer Active Tu Landeros MD Active MULTIVITAMINS TABS Take one by mouth daily MULTIPLE VITAMIN 42049092415 No Longer Active Tu Landeros MD Active MELATONIN 5 MG TABS Take one by mouth daily MELATONIN 84015625890 No Longer Active Tu Landeros MD Active SOMA 350 MG TAB 1 po q 6 hours prn spasm CARISOPRODOL 53881633648 No Longer Active Tu Landeros MD Active MECLIZINE HCL 25 MG CHEW TAB 1 four times a day as needed for dizziness 08/05 MECLIZINE HCL 17163085859 No Longer Active Fab Denan Andrew MCCORMACK Active ANGEL BREEZE 2 TEST DISK test tid prn GLUCOSE BLOOD 61993988948 No Longer Active Negra Scott MICHAEL Active DICLOFENAC SODIUM 50 MG TBEC 1 tablet by mouth three times a day as needed DICLOFENAC SODIUM 52624359791 Active Tu Landeros MD Active REGLAN 10 MG TAB 1 po TID PRN [place]ause[place] METOCLOPRAMIDE HCL 84550058255 No Longer Active Tu Landeros MD Active METFORMIN HCL 500 MG TABS 1 PO BID METFORMIN HCL 29572376422 No Longer Active Tu Landeros MD Active CARVEDILOL 12.5 MG TABS Take 1 by mouth twice a day CARVEDILOL 90652127184 Active Tu Landeros MD Active AMBIEN 10 MG TAB 1 tab by mouth at bedtime as needed for sleep ZOLPIDEM TARTRATE 71010623406 No Longer Active Tu Landeros MD Active FLUOXETINE HCL 40 MG CAPS 1 po q day FLUOXETINE HCL 16358609719 No Longer Active Mayra [place] Active FISH OIL 1000 MG CAPS Take one by mouth daily OMEGA-3 FATTY ACIDS 04169683285 Active Tu Landeros MD Active GLUCOSAMINE 500 MG TABS Take 2 tab po qd GLUCOSAMINE 38780262860 Active Tu Landeros MD Active TRILIPIX 135 MG CPDR 1 po qd CHOLINE FENOFIBRATE 31427520111 No Longer Active Tu Landeros MD Active ASPIRIN 81 MG CHEW TAB 1 tablet by mouth daily ASPIRIN 23891178903 Active Tu Landeros MD Active FUROSEMIDE 40 MG TAB 1 tablet by mouth daily FUROSEMIDE 32908224249 Active Tu Landeros MD Active REQUIP 2 MG TABS Take one tablet at bedtime prn ROPINIROLE HCL 52992440145 Active Tu Landeros MD Active SIMVASTATIN 40 MG TABS Take one by mouth daily SIMVASTATIN 40721918096 Active Tu Landeros MD Active KLOR-CON 10 10 MEQ CR-TABS TAKE 2 TABS DAILY POTASSIUM CHLORIDE 27465134540 Active Tu Landeros MD Active OMEPRAZOLE 20 MG TBEC 1 PO 30 MIN BEFORE 1ST MEAL OMEPRAZOLE 43473318811 Active Tu Landeros MD Active AMBIEN 10 MG TAB 1 tab by mouth at bedtime as needed for sleep AMBIEN 10 MG TAB 482730 ZOLPIDEM TARTRATE Inactive METFORMIN HCL 500 MG TABS 1 PO BID METFORMIN HCL 500 MG TABS 302261 METFORMIN HCL Inactive REGLAN 10 MG TAB 1 po TID PRN Nausea REGLAN 10 MG TAB 890169 METOCLOPRAMIDE HCL Inactive MECLIZINE HCL 25 MG CHEW TAB 1 four times a day as needed for dizziness 08/05 MECLIZINE HCL 25 MG CHEW TAB 344567 MECLIZINE HCL Inactive SOMA 350 MG TAB 1 po q 6 hours prn spasm SOMA 350 MG TAB 131209 CARISOPRODOL Inactive MELATONIN 5 MG TABS Take one by mouth daily MELATONIN 5 MG TABS 847579 MELATONIN Inactive MULTIVITAMINS TABS Take one by mouth daily MULTIVITAMINS TABS MULTIPLE VITAMIN Inactive LORTAB 5 5-500 MG TABS 1/2 to 1 tablet by mouth every 4 hours as needed for pain LORTAB 5 5-500 MG TABS HYDROCODONE- ACETAMINOPHEN Inactive XANAX 0.5 MG TABS 1 tablet every 6 hrs prn XANAX 0.5 MG TABS 197636 ALPRAZOLAM Inactive AUGMENTIN 875-125 MG TAB 1 tab by mouth twice daily with food AUGMENTIN 875-125 MG TAB 849551 AMOXICILLIN-POT CLAVULANATE Inactive ALPRAZOLAM 0.5 MG TABS 1 tab every 6hrs as needed ALPRAZOLAM 0.5 MG TABS 465871 ALPRAZOLAM Inactive SPIRONOLACTONE 25 MG TAB 0.5 tablet by mouth daily SPIRONOLACTONE 25 MG TAB 236799 SPIRONOLACTONE Inactive ACCU-CHEK KEYONA PLUS W/DEVICE KIT Use for testing bloodsugars three times daily as needed ACCU-CHEK KEYONA PLUS W/DEVICE KIT BLOOD GLUCOSE MONITORING SUPPL Inactive ACCU-CHEK KEYONA PLUS STRP Use for testing bloodsugars three times daily as needed ACCU-CHEK KEYONA PLUS STRP GLUCOSE BLOOD Inactive ACCU-CHEK FASTCLIX LANCETS MISC Use to check bloodsugar three times daily as needed ACCU-CHEK FASTCLIX LANCETS MISC 21082293282 LANCETS Inactive VENLAFAXINE HCL 75 MG TABS 1 po BID VENLAFAXINE HCL 75 MG TABS 093057 VENLAFAXINE HCL Inactive HYDROCODONE-ACETAMINOPHEN 5-500 MG TABS take one po Q 4-6 hours prn HYDROCODONE-ACETAMINOPHEN 5-500 MG TABS 801658 HYDROCODONE- ACETAMINOPHEN Inactive LORTAB 5 5-500 MG TABS 1/2 to 1 tablet by mouth every 4 hours as needed for pain LORTAB 5 5-500 MG TABS HYDROCODONE- ACETAMINOPHEN Inactive LAMISIL 250 MG TAB 1 po qd LAMISIL 250 MG TAB 571640 TERBINAFINE HCL Inactive VENLAFAXINE HCL 37.5 MG TABS 1 po BID VENLAFAXINE HCL 37.5 MG TABS 284991 VENLAFAXINE HCL Inactive CIPRO 500 MG TAB 1 tablet by mouth twice daily CIPRO 500 MG TAB 743210 CIPROFLOXACIN HCL Inactive TRIAMCINOLONE ACETONIDE 0.1 % OINT Apply to affected areas TID for up to 2 weeks TRIAMCINOLONE ACETONIDE 0.1 % OINT 4710309 TRIAMCINOLONE ACETONIDE Inactive PREDNISONE 20 MG TAB 2 tabs daily for 3 days, 1 tab daily for 3 days, 1/2 tab daily for 2 days PREDNISONE 20 MG TAB 058256 PREDNISONE Inactive PREDNISONE 20 MG TAB 2 tabs daily for 3 days, 1 tab daily for 3 days, 1/2 tab daily for 2 days PREDNISONE 20 MG TAB 410941 PREDNISONE Inactive BACTRIM DS 800-160 MG TABS 1 po BID x 7 days BACTRIM DS 800-160 MG TABS SULFAMETHOXAZOLE-TRIMETHOPRIM Inactive Immunizations Vaccine Administration Date Value Standard Description Seasonal influenza vaccine, injectable, containing preservative, for > 3 years old (Afluria, FluLaval, Fluzone, Fluvirin, Fluarix, Agriflu(>=18 yo)) Fluzone (>3 yrs.) [[id number]] Influenza, seasonal, injectable influenza immunization (Flu Vax) has been administered 02/22/2012 influenza virus vaccine, unspecified formulation Seasonal influenza vaccine, injectable, containing preservative, for > 3 years old (Afluria, FluLaval, Fluzone, Fluvirin, Fluarix, Agriflu(>=18 yo)) Fluzone (>3 yrs.) [[id number]] Influenza, seasonal, injectable Vital Signs Date Name [...] Panel - Chemistry sodium, serum 139 mmol/L 806-637 7173/11/27 potassium, serum 4.9 mmol/L 3.5-5.2 chloride, serum [...] Panel - Chemistry sodium, serum 139 mmol/L 990-133 9417/11/22 potassium, serum 4.3 mmol/L 3.5-5.2 chloride, serum [...] HGBA1C - Chemistry sodium, serum 144 mmol/L 646-668 7836/04/16 potassium, serum 4.2 mmol/L 3.5-5.2 chloride, serum [...] 0.20 mg/dL 0.00-1.00 cholesterol, serum 133 mg/dL 348-738 1066/04/16 triglyceride, serum, fasting 142 mg/dL 30-200 HDL cholesterol, serum 38 mg/dL 32-96 LDL cholesterol, serum 67 mg/dL 0-130 hemoglobin A1C, blood, as % of total hemoglobin 7.1 % 4.3-6.0 sodium, serum 142 mmol/L 446-736 3639/10/22 potassium, serum 4.9 mmol/L 3.5-5.2 chloride, serum [...] 0.30 mg/dL 0.00-1.00 cholesterol, serum 139 mg/dL 896-141 3055/10/22 triglyceride, serum, fasting 168 mg/dL 30-200 HDL [...] Yes Encounters Code Encounter Date Provider Facility CPT-78633 Level 4 Est. Patient 09:45:25 CDT Tu Landeros MD [facility] CPT-24363 Level 4 Est. Patient 09:05:20 [employer] Tu Landeros MD [facility] CPT-03657 Level 4 Est. Patient 14:09:06 CDT Tu Landeros MD [facility] CPT-44929 Level 3 Est. Patient 13:36:54 CDT Tu Landeros MD [facility] CPT-38927 Level 3 Est. Patient 08:59:14 CDT Tu Landeros MD [facility] CPT-15512 Level 3 Est. Patient 13:48:35 CDT Fab Morales DO [facility] CPT-79612 Level 4 Est. Patient 10:05:48 CDT Tu Landeros MD [facility] CPT-57307 Level 3 Est. Patient 13:38:42 CDT Marek BANKS [facility] CPT-40532 Level 5 Est. Patient 08:08:39 CDT Jerrica FRANCIS [facility] CPT-04493 Level 4 Est. Patient 14:23:38 CDT Tu Landeros MD [facility] CPT-45572 Level 3 Est. Patient 11:44:04 CDT Tu Landeros MD [facility] CPT-19427 Level 3 Est. Patient 11:03:20 [employer] Tu Landeros MD [facility] CPT-95074 Level 3 Est. Patient 11:03:14 [employer] Tu Landeros MD [facility] CPT-44575 Level 3 Est. Patient 12:42:49 CDT Tu Landeros MD [facility] CPT-22292 Level 3 Est. Patient 11:52:06 CDT Tu Landeros MD [facility] CPT-97389 Level 3 Est. Patient 13:58:11 CDT Tu Landeros MD [facility] CPT-00738 Level 3 Est. Patient 17:50:07 CDT Fab Morales DO [facility] CPT-03003 Level 3 Est. Patient 12:06:29 CDT Elvira Cervantes MD PhD [facility] CPT-46492 Level 3 Est. Patient 15:50:32 CDT Tu Landeros MD [facility] CPT-16753 Level 4 Est. Patient 16:08:29 CDT Tu Landeros MD [facility] CPT-53557 Level 3 Est. Patient 16:04:19 CDT Tu Landeros MD [facility] CPT-63795 Level 3 Est. Patient 11:22:30 [employer] Tu Landeros MD [facility] CPT-13651 Level 4 Est. Patient 16:24:02 [employer] Tu Landeros MD [facility] CPT-47283 Level 3 Est. Patient 17:21:23 [employer] Tu Landeros MD [facility] Procedures Code Procedure Name Date Entry Date Standard Description CPT-000 Give Zostavax 14:09:06 CDT CPT-16531 Administration single or combination vaccine inc oral 15 :19:04 CDT CPT-17781 Zoster Vaccine (Zostavax) 15:19:04 CDT CPT-24711 Administration single or combination vaccine inc oral 20 :51:03 CDT CPT-91261 Influenza split virus > age 3 20:51:03 CDT CPT-38796 No Charge Offi Visit 14:52:03 CDT CPT-OV Office Visit 14:57:43 CDT CPT-OV Office Visit 15:22:32 CDT CPT-69852 Administration single or combination vaccine inc oral 11 :33:15 CDT CPT-33978 Influenza split virus > age 3 11:33:15 CDT
--- OUTSIDE RECORDS SUMMARY | 2018-04-25 19:54 | XMS REPORT | Clinical Summary ---
Author Author Admin, SACHI Clemons [facility] Address Unknown Phone Unavailable Allergies, [...] 12.5 MG TABS 1 po BID CARVEDILOL 39542028146 Active Tu Landeros MD Active CIPRO 500 MG TABS 1 bid x 14 days start 09-28-13 CIPROFLOXACIN HCL 28992659854 Active JASPREET Perez Active ALIGN 4 MG CAPS 1 tid PROBIOTIC PRODUCT 34777681454 Active JASPREET Perez Active BACTRIM DS 800-160 MG TABS 1 bid x 14 day start 09-28-13 SULFAMETHOXAZOLE-TRIMETHOPRIM 29496575473 Active JASPREET Perez Active GABAPENTIN 300 MG CAPS 1 tid GABAPENTIN 80156352066 Active JASPREET Perez Active SUPER B COMPLEX/VITAMIN C TABS 1 qd B COMPLEX-C 73161137132 Active JASPREET Perez Active TRILIPIX 135 MG CPDR 1 q hs CHOLINE FENOFIBRATE 30581017167 Active Tu Landeros MD Active FENOFIBRATE 145 MG TABS 1 po qd FENOFIBRATE 66020126995 No Longer Active JASPREET Perez Active OMEPRAZOLE 20 MG TBEC 1 PO 30 MIN BEFORE 1ST MEAL OMEPRAZOLE 06576891538 No Longer Active JASPREET Perez Active SIMVASTATIN 40 MG TABS Take one by mouth daily SIMVASTATIN 55782852156 No Longer Active JASPREET Perez Active GABAPENTIN 100 MG CAPS 1 po bid GABAPENTIN 56620806469 Active JASPREET Perez Active VENLAFAXINE HCL 37.5 MG TABS 1 bid VENLAFAXINE HCL 16172951231 Active Tu Landeros MD Active VENLAFAXINE HCL 75 MG TABS 1 po BID VENLAFAXINE HCL 84267524548 No Longer Active JASPREET Perez Active HYDROCODONE-ACETAMINOPHEN 5-325 MG TABS 1 tab by mouth every 6 hours as needed for pain HYDROCODONE-ACETAMINOPHEN 44065491804 Active Tu Landeros MD Active METFORMIN HCL 500 MG TB24 1.5 po BID METFORMIN HCL 64416651125 Active Tu Landeros MD Active CIPRO 500 MG TAB 1 tablet by mouth twice daily CIPROFLOXACIN HCL 50515104340 No Longer Active Tu Landeros MD Active VENLAFAXINE HCL 37.5 MG TABS 1 po BID VENLAFAXINE HCL 07993445118 No Longer Active Suze Corey RMA Active [employer] STOOL SOFTENER 100 MG CAPS 1 tab daily DOCUSATE SODIUM 41357461470 Active Tu Landeros MD Active LAMISIL 250 MG TAB 1 po qd TERBINAFINE HCL 78491377398 No Longer Active Tu Landeros MD Active LORTAB 5 5-500 MG TABS 1/2 to 1 tablet by mouth every 4 hours as needed for pain HYDROCODONE-ACETAMINOPHEN 17499667273 No Longer Active Tu Landeros MD Active ENALAPRIL MALEATE 20 MG TABS 1.5 po qd ENALAPRIL MALEATE 17850280045 Active Tu Landeros MD Active HYDROCODONE-ACETAMINOPHEN 5-500 MG TABS take one po Q 4-6 hours prn HYDROCODONE-ACETAMINOPHEN 19276869962 No Longer Active Tu Landeros MD Active BACTRIM DS 800-160 MG TABS 1 po BID x 7 days SULFAMETHOXAZOLE-TRIMETHOPRIM 74916768826 No Longer Active Tu Landeros MD Active VENLAFAXINE HCL 75 MG TABS 1 po BID VENLAFAXINE HCL 92582266157 No Longer Active Elvira Cervantes MD PhD Active TRAMADOL HCL 50 MG TABS 1 tablets every 6 hours as needed for pain TRAMADOL HCL 98552998243 No Longer Active Tu Landeros MD Active TRUERESULT BLOOD GLUCOSE W/DEVICE KIT use to test blood sugar tid dx: 250.00 BLOOD GLUCOSE MONITORING SUPPL 16284893724 Active Tu Landeros MD Active TRUETEST TEST STRP test blood sugar three times daily dx: 250.00 GLUCOSE BLOOD 30682845897 Active Tu Landeros MD Active ACCU-CHEK FASTCLIX LANCETS MISC Use to check bloodsugar three times daily as needed LANCETS 18986249640 No Longer Active Tu Landeros MD Active ACCU-CHEK KEYONA PLUS STRP Use for testing bloodsugars three times daily as needed GLUCOSE BLOOD 09698439954 No Longer Active Tu Landeros MD Active ACCU-CHEK KEYONA PLUS W/DEVICE KIT Use for testing bloodsugars three times daily as needed BLOOD GLUCOSE MONITORING SUPPL 30092704303 No Longer Active Tu Landeros MD Active SPIRONOLACTONE 25 MG TAB 0.5 tablet by mouth daily SPIRONOLACTONE 18773324748 No Longer Active Tu Landeros MD Active ALPRAZOLAM 0.5 MG TABS 1 tab every 6hrs as needed ALPRAZOLAM 38938513043 No Longer Active Tu Landeros MD Active B-12 100 MCG TABS Take one by mouth daily CYANOCOBALAMIN 97985896228 Active Tu Landeros MD Active AUGMENTIN 875-125 MG TAB 1 tab by mouth twice daily with food AMOXICILLIN-POT CLAVULANATE 11061962201 No Longer Active Tu Landeros MD Active PREDNISONE 20 MG TAB 2 tabs daily for 3 days, 1 tab daily for 3 days, 1/2 tab daily for 2 days PREDNISONE 23389342582 No Longer Active Tu Landeros MD Active XANAX 0.5 MG TABS 1 tablet every 6 hrs prn ALPRAZOLAM 49986685087 No Longer Active Tu Landeros MD Active PREDNISONE 20 MG TAB 2 tabs daily for 3 days, 1 tab daily for 3 days, 1/2 tab daily for 2 days PREDNISONE 27790750032 No Longer Active Tu Landeros MD Active TRIAMCINOLONE ACETONIDE 0.1 % OINT Apply to affected areas TID for up to 2 weeks TRIAMCINOLONE ACETONIDE 20442576126 No Longer Active Tu Landeros MD Active LORTAB 5 5-500 MG TABS 1/2 to 1 tablet by mouth every 4 hours as needed for pain HYDROCODONE-ACETAMINOPHEN 36033275903 No Longer Active Tu Landeros MD Active MULTIVITAMINS TABS Take one by mouth daily MULTIPLE VITAMIN 51649539067 No Longer Active Tu Landeros MD Active MELATONIN 5 MG TABS Take one by mouth daily MELATONIN 69092278936 No Longer Active Tu Landeros MD Active SOMA 350 MG TAB 1 po q 6 hours prn spasm CARISOPRODOL 39685552049 No Longer Active Tu Landeros MD Active MECLIZINE HCL 25 MG CHEW TAB 1 four times a day as needed for dizziness 08/05 MECLIZINE HCL 92920571476 No Longer Active Fab Morales DO Active ANGEL BREEZE 2 TEST DISK test tid prn GLUCOSE BLOOD 55801837443 No Longer Active Negra Scott RN Active DICLOFENAC SODIUM 50 MG TBEC 1 tablet by mouth three times a day as needed DICLOFENAC SODIUM 29218105383 Active Tu Landeros MD Active REGLAN 10 MG TAB 1 po TID PRN [place] METOCLOPRAMIDE HCL 56359839299 No Longer Active Tu Landeros MD Active METFORMIN HCL 500 MG TABS 1 PO BID METFORMIN HCL 70695980732 No Longer Active Tu Landeros MD Active AMBIEN 10 MG TAB 1 tab by mouth at bedtime as needed for sleep ZOLPIDEM TARTRATE 45044690606 No Longer Active Tu Landeros MD Active FLUOXETINE HCL 40 MG CAPS 1 po q day FLUOXETINE HCL 52547119179 No Longer Active Mayra [place] Active FISH OIL 1000 MG CAPS Take one by mouth daily OMEGA-3 FATTY ACIDS 39761292566 Active Tu Landeros MD Active GLUCOSAMINE 500 MG TABS Take 2 tab po qd GLUCOSAMINE 54273510030 Active Tu Landeros MD Active TRILIPIX 135 MG CPDR 1 po qd CHOLINE FENOFIBRATE 36286723889 No Longer Active Tu Landeros MD Active ASPIRIN 81 MG CHEW TAB 1 tablet by mouth daily ASPIRIN 07620134053 Active Tu Landeros MD Active FUROSEMIDE 40 MG TAB 1 tablet by mouth daily FUROSEMIDE 83007699686 Active Tu Landeros MD Active REQUIP 2 MG TABS Take one tablet at bedtime prn ROPINIROLE HCL 83491865549 Active Tu Landeros MD Active KLOR-CON 10 10 MEQ CR-TABS TAKE 2 TABS DAILY POTASSIUM CHLORIDE 95885691801 Active Tu Landeros MD Active AMBIEN 10 MG TAB 1 tab by mouth at bedtime as needed for sleep AMBIEN 10 MG TAB 386806 ZOLPIDEM TARTRATE Inactive METFORMIN HCL 500 MG TABS 1 PO BID METFORMIN HCL 500 MG TABS 833606 METFORMIN HCL Inactive REGLAN 10 MG TAB 1 po TID PRN Nausea REGLAN 10 MG TAB 867463 METOCLOPRAMIDE HCL Inactive MECLIZINE HCL 25 MG CHEW TAB 1 four times a day as needed for dizziness 08/05 MECLIZINE HCL 25 MG CHEW TAB 188796 MECLIZINE HCL Inactive SOMA 350 MG TAB 1 po q 6 hours prn spasm SOMA 350 MG TAB 832689 CARISOPRODOL Inactive MELATONIN 5 MG TABS Take one by mouth daily MELATONIN 5 MG TABS 574617 MELATONIN Inactive MULTIVITAMINS TABS Take one by mouth daily MULTIVITAMINS TABS MULTIPLE VITAMIN Inactive LORTAB 5 5-500 MG TABS 1/2 to 1 tablet by mouth every 4 hours as needed for pain LORTAB 5 5-500 MG TABS HYDROCODONE- ACETAMINOPHEN Inactive XANAX 0.5 MG TABS 1 tablet every 6 hrs prn XANAX 0.5 MG TABS 102722 ALPRAZOLAM Inactive AUGMENTIN 875-125 MG TAB 1 tab by mouth twice daily with food AUGMENTIN 875-125 MG TAB 512887 AMOXICILLIN-POT CLAVULANATE Inactive ALPRAZOLAM 0.5 MG TABS 1 tab every 6hrs as needed ALPRAZOLAM 0.5 MG TABS 080321 ALPRAZOLAM Inactive SPIRONOLACTONE 25 MG TAB 0.5 tablet by mouth daily SPIRONOLACTONE 25 MG TAB 436983 SPIRONOLACTONE Inactive ACCU-CHEK KEYONA PLUS W/DEVICE KIT Use for testing bloodsugars three times daily as needed ACCU-CHEK KEYONA PLUS W/DEVICE KIT BLOOD GLUCOSE MONITORING SUPPL Inactive ACCU-CHEK KEYONA PLUS STRP Use for testing bloodsugars three times daily as needed ACCU-CHEK KEYONA PLUS STRP GLUCOSE BLOOD Inactive ACCU-CHEK FASTCLIX LANCETS MISC Use to check bloodsugar three times daily as needed ACCU-CHEK FASTCLIX LANCETS MISC 11986918946 LANCETS Inactive TRAMADOL HCL 50 MG TABS 1 tablets every 6 hours as needed for pain TRAMADOL HCL 50 MG TABS 325279 TRAMADOL HCL Inactive VENLAFAXINE HCL 75 MG TABS 1 po BID VENLAFAXINE HCL 75 MG TABS 883572 VENLAFAXINE HCL Inactive HYDROCODONE-ACETAMINOPHEN 5-500 MG TABS take one po Q 4-6 hours prn HYDROCODONE-ACETAMINOPHEN 5-500 MG TABS HYDROCODONE- ACETAMINOPHEN Inactive LORTAB 5 5-500 MG TABS 1/2 to 1 tablet by mouth every 4 hours as needed for pain LORTAB 5 5-500 MG TABS HYDROCODONE- ACETAMINOPHEN Inactive LAMISIL 250 MG TAB 1 po qd LAMISIL 250 MG TAB 327426 TERBINAFINE HCL Inactive VENLAFAXINE HCL 37.5 MG TABS 1 po BID VENLAFAXINE HCL 37.5 MG TABS 414856 VENLAFAXINE HCL Inactive CIPRO 500 MG TAB 1 tablet by mouth twice daily CIPRO 500 MG TAB 838256 CIPROFLOXACIN HCL Inactive VENLAFAXINE HCL 75 MG TABS 1 po BID VENLAFAXINE HCL 75 MG TABS 782789 VENLAFAXINE HCL Inactive SIMVASTATIN 40 MG TABS Take one by mouth daily SIMVASTATIN 40 MG TABS 114333 SIMVASTATIN Inactive OMEPRAZOLE 20 MG TBEC 1 PO 30 MIN BEFORE 1ST MEAL OMEPRAZOLE 20 MG TBEC 816766 OMEPRAZOLE Inactive FENOFIBRATE 145 MG TABS 1 po qd FENOFIBRATE 145 MG TABS 471789 FENOFIBRATE Inactive TRIAMCINOLONE ACETONIDE 0.1 % OINT Apply to affected areas TID for up to 2 weeks TRIAMCINOLONE ACETONIDE 0.1 % OINT 0192548 TRIAMCINOLONE ACETONIDE Inactive PREDNISONE 20 MG TAB 2 tabs daily for 3 days, 1 tab daily for 3 days, 1/2 tab daily for 2 days PREDNISONE 20 MG TAB 461734 PREDNISONE Inactive PREDNISONE 20 MG TAB 2 tabs daily for 3 days, 1 tab daily for 3 days, 1/2 tab daily for 2 days PREDNISONE 20 MG TAB 289319 PREDNISONE Inactive BACTRIM DS 800-160 MG TABS 1 po BID x 7 days BACTRIM DS 800-160 MG TABS SULFAMETHOXAZOLE-TRIMETHOPRIM Inactive Immunizations Vaccine Administration Date Value Standard Description Seasonal influenza vaccine, injectable, containing preservative, for > 3 years old (Afluria, FluLaval, Fluzone, Fluvirin, Fluarix, Agriflu(>=18 yo)) Fluzone (>3 yrs.) [[id number]] Influenza, seasonal, injectable influenza immunization (Flu Vax) has been administered 02/22/2012 influenza virus vaccine, unspecified formulation Seasonal influenza vaccine, injectable, containing preservative, for > 3 years old (Afluria, FluLaval, Fluzone, Fluvirin, Fluarix, Agriflu(>=18 yo)) Fluzone (>3 yrs.) [[id number]] Influenza, seasonal, injectable Vital Signs Date Name [...] Panel - Chemistry sodium, serum 139 mmol/L 425-899 6189/11/27 urea nitrogen, blood 30 mg/dL 7-18 creatinine, serum 1.50 mg/dL 0.60-1.30 potassium, serum 4.9 mmol/L 3.5-5.2 chloride, serum 104 mmol/L 98-107 carbon dioxide, venous blood 29.9 mmol/L 21.0-32.0 blood glucose 128 mg/dL 65-110 calcium, serum 9.6 mg/dL 8.5-10.1 Lab Report: CBC W/ DIFF, CMP, TSH, [...] Panel - Chemistry sodium, serum 139 mmol/L 258-014 7736/11/22 bilirubin, serum, total 0.20 mg/dL 0.00-1.00 potassium, serum 4.3 mmol/L 3.5-5.2 chloride, serum 103 mmol/L 98-107 carbon dioxide, venous blood 28.3 mmol/L 21.0-32.0 blood glucose 125 mg/dL 65-110 urea nitrogen, blood 27 mg/dL 7-18 creatinine, serum 1.60 mg/dL 0.60-1.30 alanine aminotransferase (SGPT), serum 35 U/L 12-78 aspartate aminotransferase (SGOT), serum 25 U/L 15-37 alkaline phosphatase, serum 89 U/L 50-136 calcium, serum 9.2 mg/dL 8.5-10.1 Lab Report: Comp. Metabolic Panel, Lipid Panel, HGBA1C - Chemistry calcium, serum 9.0 mg/dL 8.5-10.1 bilirubin, serum, total 0.30 mg/dL 0.00-1.00 cholesterol, serum 139 mg/dL 479-892 8703/10/22 triglyceride, serum, fasting 168 mg/dL 30-200 HDL cholesterol, serum 40 mg/dL 32-96 LDL cholesterol, serum 65 mg/dL 0-130 hemoglobin A1C, blood, as % of total hemoglobin 6.2 % 4.3-6.0 blood glucose 104 mg/dL 65-110 carbon dioxide, venous blood 31.8 mmol/L 21.0-32.0 chloride, serum 105 mmol/L 98-107 potassium, serum 4.9 mmol/L 3.5-5.2 sodium, serum 142 mmol/L 502-930 1348/10/22 alkaline phosphatase, serum 86 U/L 50-136 aspartate aminotransferase (SGOT), serum 24 U/L 15-37 alanine aminotransferase (SGPT), serum 36 U/L 12-78 creatinine, serum 1.30 mg/dL 0.60-1.30 urea nitrogen, blood 25 mg/dL 7-18 carbon dioxide, venous blood 29.9 mmol/L 21.0-32.0 blood glucose 113 mg/dL 65-110 urea nitrogen, blood 22 mg/dL 7-18 sodium, serum 144 mmol/L 881-555 5380/04/16 creatinine, serum 1.10 mg/dL 0.60-1.30 alanine aminotransferase (SGPT), serum 21 U/L 12-78 aspartate aminotransferase (SGOT), serum 18 U/L 15-37 alkaline phosphatase, serum 84 U/L 50-136 calcium, serum 8.9 mg/dL 8.5-10.1 bilirubin, serum, total 0.20 mg/dL 0.00-1.00 cholesterol, serum 133 mg/dL 307-142 7209/04/16 triglyceride, serum, fasting 142 mg/dL 30-200 HDL cholesterol, serum 38 mg/dL 32-96 LDL cholesterol, serum 67 mg/dL 0-130 hemoglobin A1C, blood, as % of total hemoglobin 7.1 % 4.3-6.0 potassium, serum 4.2 mmol/L 3.5-5.2 chloride, serum 106 mmol/L 98-107 Lab Report: MICROALBUMIN - Chemistry albumin/creatinine ratio, [...] mg/dL Encounters Code Encounter Date Provider Facility CPT-99421 Level 4 Est. Patient 09:45:25 CDT Tu Landeros MD [facility] CPT-50719 Level 4 Est. Patient 09:05:20 [employer] Tu Landeros MD [facility] CPT-02608 Level 4 Est. Patient 14:09:06 CDT Tu Landeros MD [facility] CPT-45569 Level 3 Est. Patient 13:36:54 CDT Tu Landeros MD [facility] CPT-76946 Level 3 Est. Patient 08:59:14 CDT Tu Landeros MD [facility] CPT-88794 Level 3 Est. Patient 13:48:35 CDT Fab Morales DO [facility] CPT-45965 Level 4 Est. Patient 10:05:48 CDT Tu Landeros MD [facility] CPT-54962 Level 3 Est. Patient 13:38:[address] [facility] CPT-34245 Level 5 Est. Patient 08:08:[address] [facility] CPT-91140 Level 4 Est. Patient 14:23:38 CDT Tu Landeros MD [facility] CPT-42145 Level 3 Est. Patient 11:44:04 CDT Tu Landeros MD [facility] CPT-11760 Level 3 Est. Patient 11:03:20 [employer] Tu Landeros MD [facility] CPT-76027 Level 3 Est. Patient 11:03:14 [employer] Tu Landeros MD [facility] CPT-67595 Level 3 Est. Patient 12:42:49 CDT Tu Landeros MD [facility] CPT-51657 Level 3 Est. Patient 11:52:06 CDT Tu Landeros MD [facility] CPT-54821 Level 3 Est. Patient 13:58:11 CDT Tu Landeros MD [facility] CPT-99416 Level 3 Est. Patient 17:50:07 CDT Fab Morales DO [facility] CPT-95432 Level 3 Est. Patient 12:06:29 CDT Elvira Cervantes MD [facility] CPT-66938 Level 3 Est. Patient 15:50:32 CDT Tu Landeros MD [facility] CPT-38315 Level 4 Est. Patient 16:08:29 CDT Tu Landeros MD [facility] CPT-84608 Level 3 Est. Patient 16:04:19 CDT Tu Landeros MD [facility] CPT-33762 Level 3 Est. Patient 11:22:30 [employer] Tu Landeros MD [facility] CPT-77299 Level 4 Est. Patient 16:24:02 [employer] Tu Landeros MD [facility] CPT-40786 Level 3 Est. Patient 17:21:23 [employer] Tu Landeros MD [facility] Procedures Code Procedure Name Date Entry Date Standard Description CPT-OV Office Visit 15:45:11 CDT CPT-000 Give Zostavax 14:09:06 CDT CPT-22612 Administration single or combination vaccine inc oral 15 :19:04 CDT CPT-10272 Zoster Vaccine (Zostavax) 15:19:04 CDT CPT-91851 Administration single or combination vaccine inc oral 20 :51:03 CDT CPT-04764 Influenza split virus > age 3 20:51:03 CDT CPT-61769 No Charge Offi Visit 14:52:03 CDT CPT-OV Office Visit 14:57:43 CDT CPT-OV Office Visit 15:22:32 CDT CPT-21960 Administration single or combination vaccine inc oral 11 :33:15 CDT CPT-53562 Influenza split virus > age 3 11:33:15 CDT
--- OUTSIDE RECORDS SUMMARY | 2018-04-25 19:55 | XMS REPORT | Clinical Summary ---
Author Author Admin, SACHI Organization [facility] Address Unknown Phone Allergies, Adverse [...] 6 hours as needed for pain HYDROCODONE-ACETAMINOPHEN 40622553658 Active Tu Landeros MD Active METFORMIN HCL 500 MG TB24 1.5 po BID METFORMIN HCL 90728985005 Active Tu Landeros MD Active GABAPENTIN 100 MG CAPS 3 po tid GABAPENTIN 34848192514 Active Tu Landeros MD Active CIPRO 500 MG TAB 1 tablet by mouth twice daily CIPROFLOXACIN HCL 79895148782 No Longer Active Tu Landeros MD Active VENLAFAXINE HCL 75 MG TABS 1 po BID VENLAFAXINE HCL 06923746512 Active Tu Landeros MD Active VENLAFAXINE HCL 37.5 MG TABS 1 po BID VENLAFAXINE HCL 40778311518 No Longer Active Suze Corey RMA Active [employer] STOOL SOFTENER 100 MG CAPS 1 tab daily DOCUSATE SODIUM 20222148494 Active Tu Landeros MD Active LAMISIL 250 MG TAB 1 po qd TERBINAFINE HCL 37951151436 No Longer Active Tu Landeros MD Active LORTAB 5 5-500 MG TABS 1/2 to 1 tablet by mouth every 4 hours as needed for pain HYDROCODONE-ACETAMINOPHEN 88315883838 No Longer Active Tu Landeros MD Active FENOFIBRATE 145 MG TABS 1 po qd FENOFIBRATE 64077932884 Active Tu Landeros MD Active ENALAPRIL MALEATE 20 MG TABS 1.5 po qd ENALAPRIL MALEATE 73304267075 Active Tu Landeros MD Active HYDROCODONE-ACETAMINOPHEN 5-500 MG TABS take one po Q 4-6 hours prn HYDROCODONE-ACETAMINOPHEN 18666080153 No Longer Active Tu Landeros MD Active BACTRIM DS 800-160 MG TABS 1 po BID x 7 days SULFAMETHOXAZOLE-TRIMETHOPRIM 37201229062 No Longer Active Tu Landeros MD Active VENLAFAXINE HCL 75 MG TABS 1 po BID VENLAFAXINE HCL 75421653137 No Longer Active Elvira Cervantes MD PhD Active TRUERESULT BLOOD GLUCOSE W/DEVICE KIT use to test blood sugar tid dx: 250.00 BLOOD GLUCOSE MONITORING SUPPL 86868401075 Active Tu Landeros MD Active TRUETEST TEST STRP test blood sugar three times daily dx: 250.00 GLUCOSE BLOOD 99882506102 Active Tu Landeros MD Active ACCU-CHEK FASTCLIX LANCETS MISC Use to check bloodsugar three times daily as needed LANCETS 95209598738 No Longer Active Tu Landeros MD Active ACCU-CHEK KEYONA PLUS STRP Use for testing bloodsugars three times daily as needed GLUCOSE BLOOD 24904824509 No Longer Active Tu Landeros MD Active ACCU-CHEK KEYONA PLUS W/DEVICE KIT Use for testing bloodsugars three times daily as needed BLOOD GLUCOSE MONITORING SUPPL 82834555030 No Longer Active Tu Landeros MD Active SPIRONOLACTONE 25 MG TAB 0.5 tablet by mouth daily SPIRONOLACTONE 93670548589 No Longer Active Tu Landeros MD Active TRAMADOL HCL 50 MG TABS 1 tablets every 6 hours as needed for pain TRAMADOL HCL 25116179349 Active Tu Landeros MD Active ALPRAZOLAM 0.5 MG TABS 1 tab every 6hrs as needed ALPRAZOLAM 99058754223 No Longer Active Tu Landeros MD Active B-12 100 MCG TABS Take one by mouth daily CYANOCOBALAMIN 14414981805 Active Tu Landeros MD Active AUGMENTIN 875-125 MG TAB 1 tab by mouth twice daily with food AMOXICILLIN-POT CLAVULANATE 82765043570 No Longer Active Tu Landeros MD Active PREDNISONE 20 MG TAB 2 tabs daily for 3 days, 1 tab daily for 3 days, 1/2 tab daily for 2 days PREDNISONE 83875818972 No Longer Active Tu Landeros MD Active XANAX 0.5 MG TABS 1 tablet every 6 hrs prn ALPRAZOLAM 16509339539 No Longer Active Tu Landeros MD Active PREDNISONE 20 MG TAB 2 tabs daily for 3 days, 1 tab daily for 3 days, 1/2 tab daily for 2 days PREDNISONE 50373705101 No Longer Active Tu Landeros MD Active TRIAMCINOLONE ACETONIDE 0.1 % OINT Apply to affected areas TID for up to 2 weeks TRIAMCINOLONE ACETONIDE 22908050066 No Longer Active Tu Landeros MD Active LORTAB 5 5-500 MG TABS 1/2 to 1 tablet by mouth every 4 hours as needed for pain HYDROCODONE-ACETAMINOPHEN 58134238676 No Longer Active Tu Landeros MD Active MULTIVITAMINS TABS Take one by mouth daily MULTIPLE VITAMIN 61790510281 No Longer Active Tu Landeros MD Active MELATONIN 5 MG TABS Take one by mouth daily MELATONIN 83649434303 No Longer Active Tu Landeros MD Active SOMA 350 MG TAB 1 po q 6 hours prn spasm CARISOPRODOL 07303621094 No Longer Active Tu Landeros MD Active MECLIZINE HCL 25 MG CHEW TAB 1 four times a day as needed for dizziness 08/05 MECLIZINE HCL 88210650113 No Longer Active Fab Deann Andrew MCCORMACK Active ANGEL BREEZE 2 TEST DISK test tid prn GLUCOSE BLOOD 07286110505 No Longer Active Negra Scott MICHAEL Active DICLOFENAC SODIUM 50 MG TBEC 1 tablet by mouth three times a day as needed DICLOFENAC SODIUM 13041103726 Active Tu Landeros MD Active REGLAN 10 MG TAB 1 po TID PRN Nausea METOCLOPRAMIDE HCL 65826629957 No Longer Active Tu Landeros MD Active METFORMIN HCL 500 MG TABS 1 PO BID METFORMIN HCL 53450585941 No Longer Active Tu Landeros MD Active CARVEDILOL 12.5 MG TABS Take 1 by mouth twice a day CARVEDILOL 95914256623 Active Tu Landeros MD Active AMBIEN 10 MG TAB 1 tab by mouth at bedtime as needed for sleep ZOLPIDEM TARTRATE 59092481877 No Longer Active Tu Landeros MD Active FLUOXETINE HCL 40 MG CAPS 1 po q day FLUOXETINE HCL 23315074095 No Longer Active Mayra Kershaw Active FISH OIL 1000 MG CAPS Take one by mouth daily OMEGA-3 FATTY ACIDS 11818396510 Active Tu Landeros MD Active GLUCOSAMINE 500 MG TABS Take 2 tab po qd GLUCOSAMINE 33508171312 Active Tu Landeros MD Active TRILIPIX 135 MG CPDR 1 po qd CHOLINE FENOFIBRATE 01614520438 No Longer Active Tu Landeros MD Active ASPIRIN 81 MG CHEW TAB 1 tablet by mouth daily ASPIRIN 98823283300 Active Tu Landeros MD Active FUROSEMIDE 40 MG TAB 1 tablet by mouth daily FUROSEMIDE 72523484103 Active Tu Landeros MD Active REQUIP 2 MG TABS Take one tablet at bedtime prn ROPINIROLE HCL 48008086380 Active Tu Landeros MD Active SIMVASTATIN 40 MG TABS Take one by mouth daily SIMVASTATIN 79278592829 Active Tu Landeros MD Active KLOR-CON 10 10 MEQ CR-TABS TAKE 2 TABS DAILY POTASSIUM CHLORIDE 60585948515 Active Tu Landeros MD Active OMEPRAZOLE 20 MG TBEC 1 PO 30 MIN BEFORE 1ST MEAL OMEPRAZOLE 79306290812 Active Tu Landeros MD Active AMBIEN 10 MG TAB 1 tab by mouth at bedtime as needed for sleep AMBIEN 10 MG TAB 612250 ZOLPIDEM TARTRATE Inactive METFORMIN HCL 500 MG TABS 1 PO BID METFORMIN HCL 500 MG TABS 360172 METFORMIN HCL Inactive REGLAN 10 MG TAB 1 po TID PRN Nausea REGLAN 10 MG TAB 122622 METOCLOPRAMIDE HCL Inactive MECLIZINE HCL 25 MG CHEW TAB 1 four times a day as needed for dizziness 08/05 MECLIZINE HCL 25 MG CHEW TAB 523469 MECLIZINE HCL Inactive SOMA 350 MG TAB 1 po q 6 hours prn spasm SOMA 350 MG TAB 640458 CARISOPRODOL Inactive MELATONIN 5 MG TABS Take one by mouth daily MELATONIN 5 MG TABS 639951 MELATONIN Inactive MULTIVITAMINS TABS Take one by mouth daily MULTIVITAMINS TABS MULTIPLE VITAMIN Inactive LORTAB 5 5-500 MG TABS 1/2 to 1 tablet by mouth every 4 hours as needed for pain LORTAB 5 5-500 MG TABS HYDROCODONE- ACETAMINOPHEN Inactive XANAX 0.5 MG TABS 1 tablet every 6 hrs prn XANAX 0.5 MG TABS 939932 ALPRAZOLAM Inactive AUGMENTIN 875-125 MG TAB 1 tab by mouth twice daily with food AUGMENTIN 875-125 MG TAB 288653 AMOXICILLIN-POT CLAVULANATE Inactive ALPRAZOLAM 0.5 MG TABS 1 tab every 6hrs as needed ALPRAZOLAM 0.5 MG TABS 907902 ALPRAZOLAM Inactive SPIRONOLACTONE 25 MG TAB 0.5 tablet by mouth daily SPIRONOLACTONE 25 MG TAB 109330 SPIRONOLACTONE Inactive ACCU-CHEK KEYONA PLUS W/DEVICE KIT Use for testing bloodsugars three times daily as needed ACCU-CHEK KEYONA PLUS W/DEVICE KIT BLOOD GLUCOSE MONITORING SUPPL Inactive ACCU-CHEK KEYONA PLUS STRP Use for testing bloodsugars three times daily as needed ACCU-CHEK KEYONA PLUS STRP GLUCOSE BLOOD Inactive ACCU-CHEK FASTCLIX LANCETS MISC Use to check bloodsugar three times daily as needed ACCU-CHEK FASTCLIX LANCETS MISC 17693817094 LANCETS Inactive VENLAFAXINE HCL 75 MG TABS 1 po BID VENLAFAXINE HCL 75 MG TABS 493187 VENLAFAXINE HCL Inactive HYDROCODONE-ACETAMINOPHEN 5-500 MG TABS take one po Q 4-6 hours prn HYDROCODONE-ACETAMINOPHEN 5-500 MG TABS 989334 HYDROCODONE- ACETAMINOPHEN Inactive LORTAB 5 5-500 MG TABS 1/2 to 1 tablet by mouth every 4 hours as needed for pain LORTAB 5 5-500 MG TABS HYDROCODONE- ACETAMINOPHEN Inactive LAMISIL 250 MG TAB 1 po qd LAMISIL 250 MG TAB 141640 TERBINAFINE HCL Inactive VENLAFAXINE HCL 37.5 MG TABS 1 po BID VENLAFAXINE HCL 37.5 MG TABS 162623 VENLAFAXINE HCL Inactive CIPRO 500 MG TAB 1 tablet by mouth twice daily CIPRO 500 MG TAB 107696 CIPROFLOXACIN HCL Inactive TRIAMCINOLONE ACETONIDE 0.1 % OINT Apply to affected areas TID for up to 2 weeks TRIAMCINOLONE ACETONIDE 0.1 % OINT 8388430 TRIAMCINOLONE ACETONIDE Inactive PREDNISONE 20 MG TAB 2 tabs daily for 3 days, 1 tab daily for 3 days, 1/2 tab daily for 2 days PREDNISONE 20 MG TAB 792700 PREDNISONE Inactive PREDNISONE 20 MG TAB 2 tabs daily for 3 days, 1 tab daily for 3 days, 1/2 tab daily for 2 days PREDNISONE 20 MG TAB 514094 PREDNISONE Inactive BACTRIM DS 800-160 MG TABS 1 po BID x 7 days BACTRIM DS 800-160 MG TABS SULFAMETHOXAZOLE-TRIMETHOPRIM Inactive Immunizations Vaccine Administration Date Value Standard Description Seasonal influenza vaccine, injectable, containing preservative, for > 3 years old (Afluria, FluLaval, Fluzone, Fluvirin, Fluarix, Agriflu(>=18 yo)) Fluzone (>3 yrs.) [YYW101] Influenza, seasonal, injectable influenza immunization (Flu Vax) has been administered 02/22/2012 influenza virus vaccine, unspecified formulation Seasonal influenza vaccine, injectable, containing preservative, for > 3 years old (Afluria, FluLaval, Fluzone, Fluvirin, Fluarix, Agriflu(>=18 yo)) Fluzone (>3 yrs.) [[id number]] Influenza, seasonal, injectable Vital Signs Date Name [...] Panel - Chemistry sodium, serum 139 mmol/L 427-312 1483/11/27 potassium, serum 4.9 mmol/L 3.5-5.2 chloride, serum [...] Panel - Chemistry sodium, serum 139 mmol/L 220-925 7762/11/22 potassium, serum 4.3 mmol/L 3.5-5.2 chloride, serum [...] HGBA1C - Chemistry sodium, serum 144 mmol/L 626-924 1560/04/16 potassium, serum 4.2 mmol/L 3.5-5.2 chloride, serum [...] 0.20 mg/dL 0.00-1.00 cholesterol, serum 133 mg/dL 085-203 6887/04/16 triglyceride, serum, fasting 142 mg/dL 30-200 HDL cholesterol, serum 38 mg/dL 32-96 LDL cholesterol, serum 67 mg/dL 0-130 hemoglobin A1C, blood, as % of total hemoglobin 7.1 % 4.3-6.0 sodium, serum 142 mmol/L 329-571 4857/10/22 potassium, serum 4.9 mmol/L 3.5-5.2 chloride, serum [...] 0.30 mg/dL 0.00-1.00 cholesterol, serum 139 mg/dL 102-432 4770/10/22 triglyceride, serum, fasting 168 mg/dL 30-200 HDL [...] Yes Encounters Code Encounter Date Provider Facility CPT-37101 Level 4 Est. Patient 09:45:25 CDT Tu Landeros MD [facility] CPT-42504 Level 4 Est. Patient 09:05:20 MANUAL QA TESTER Tu Landeros MD [facility] CPT-12230 Level 4 Est. Patient 14:09:06 CDT Tu Landeros MD [facility] CPT-80883 Level 3 Est. Patient 13:36:54 CDT Tu Landeros MD [facility] CPT-48563 Level 3 Est. Patient 08:59:14 CDT Tu Landeros MD [facility] CPT-71759 Level 3 Est. Patient 13:48:35 CDT Fab Morales DO [facility] CPT-62014 Level 4 Est. Patient 10:05:48 CDT Tu Landeros MD [facility] CPT-88124 Level 3 Est. Patient 13:38:42 CDT Marek BANKS [facility] CPT-24470 Level 5 Est. Patient 08:08:39 CDT Jerrica FRANCIS [facility] CPT-10835 Level 4 Est. Patient 14:23:38 CDT Tu Landeros MD [facility] CPT-92453 Level 3 Est. Patient 11:44:04 CDT Tu Landeros MD [facility] CPT-06899 Level 3 Est. Patient 11:03:20 MANUAL QA TESTER Tu Landeros MD [facility] CPT-41908 Level 3 Est. Patient 11:03:14 MANUAL QA TESTER Tu Landeros MD [facility] CPT-80068 Level 3 Est. Patient 12:42:49 CDT Tu Landeros MD [facility] CPT-16558 Level 3 Est. Patient 11:52:06 CDT Tu Landeros MD [facility] CPT-81239 Level 3 Est. Patient 13:58:11 CDT Tu Landeros MD [facility] CPT-28251 Level 3 Est. Patient 17:50:07 CDT Fab Morales DO [facility] CPT-71771 Level 3 Est. Patient 12:06:29 CDT Elvira Cervantes MD PhD [facility] CPT-07418 Level 3 Est. Patient 15:50:32 CDT Tu Landeros MD [facility] CPT-15554 Level 4 Est. Patient 16:08:29 CDT Tu Landeros MD [facility] CPT-11247 Level 3 Est. Patient 16:04:19 CDT Tu Landeros MD [facility] CPT-72235 Level 3 Est. Patient 11:22:30 MANUAL QA TESTER Tu Landeros MD [facility] CPT-13184 Level 4 Est. Patient 16:24:02 MANUAL QA TESTER Tu Landeros MD [facility] CPT-54344 Level 3 Est. Patient 17:21:23 MANUAL QA TESTER Tu Landeros MD [facility] Procedures Code Procedure Name Date Entry Date Standard Description CPT-000 Give Zostavax 14:09:06 CDT CPT-50403 Administration single or combination vaccine inc oral 15 :19:04 CDT CPT-83340 Zoster Vaccine (Zostavax) 15:19:04 CDT CPT-28790 Administration single or combination vaccine inc oral 20 :51:03 CDT CPT-95027 Influenza split virus > age 3 20:51:03 CDT CPT-79371 No Charge Offi Visit 14:52:03 CDT CPT-OV Office Visit 14:57:43 CDT CPT-OV Office Visit 15:22:32 CDT CPT-39884 Administration single or combination vaccine inc oral 11 :33:15 CDT CPT-19853 Influenza split virus > age 3 11:33:15 CDT
--- OUTSIDE RECORDS SUMMARY | 2018-04-25 19:56 | XMS REPORT | Clinical Summary ---
Author Author Admin, SACHI Organization [facility] Address Unknown Phone Allergies, Adverse Reactions, [...] 6 hours as needed for pain HYDROCODONE-ACETAMINOPHEN 09902431686 Active Tu Landeros MD Active METFORMIN HCL 500 MG TB24 1.5 po BID METFORMIN HCL 55394911238 Active Tu Landeros MD Active GABAPENTIN 100 MG CAPS 3 po tid GABAPENTIN 56113121679 Active Tu Landeros MD Active CIPRO 500 MG TAB 1 tablet by mouth twice daily CIPROFLOXACIN HCL 84228369929 No Longer Active Tu Landeros MD Active VENLAFAXINE HCL 75 MG TABS 1 po BID VENLAFAXINE HCL 65694963892 Active Tu Landeros MD Active VENLAFAXINE HCL 37.5 MG TABS 1 po BID VENLAFAXINE HCL 27215228706 No Longer Active Suze Corey RMA Active [employer] STOOL SOFTENER 100 MG CAPS 1 tab daily DOCUSATE SODIUM 54257262948 Active Tu Landeros MD Active LAMISIL 250 MG TAB 1 po qd TERBINAFINE HCL 48087156971 No Longer Active Tu Landeros MD Active LORTAB 5 5-500 MG TABS 1/2 to 1 tablet by mouth every 4 hours as needed for pain HYDROCODONE-ACETAMINOPHEN 23910154030 No Longer Active Tu Landeros MD Active FENOFIBRATE 145 MG TABS 1 po qd FENOFIBRATE 77937096179 Active Tu Landeros MD Active ENALAPRIL MALEATE 20 MG TABS 1.5 po qd ENALAPRIL MALEATE 82778123874 Active Tu Landeros MD Active HYDROCODONE-ACETAMINOPHEN 5-500 MG TABS take one po Q 4-6 hours prn HYDROCODONE-ACETAMINOPHEN 15638397512 No Longer Active Tu Landeros MD Active BACTRIM DS 800-160 MG TABS 1 po BID x 7 days SULFAMETHOXAZOLE-TRIMETHOPRIM 91300108931 No Longer Active Tu Landeros MD Active VENLAFAXINE HCL 75 MG TABS 1 po BID VENLAFAXINE HCL 86743021837 No Longer Active Elvira Cervantes MD PhD Active TRUERESULT BLOOD GLUCOSE W/DEVICE KIT use to test blood sugar tid dx: 250.00 BLOOD GLUCOSE MONITORING SUPPL 59329082697 Active Tu Landeros MD Active TRUETEST TEST STRP test blood sugar three times daily dx: 250.00 GLUCOSE BLOOD 42064594765 Active Tu Landeros MD Active ACCU-CHEK FASTCLIX LANCETS MISC Use to check bloodsugar three times daily as needed LANCETS 03357578566 No Longer Active Tu Landeros MD Active ACCU-CHEK KEYONA PLUS STRP Use for testing bloodsugars three times daily as needed GLUCOSE BLOOD 28021642339 No Longer Active Tu Landeros MD Active ACCU-CHEK KEYONA PLUS W/DEVICE KIT Use for testing bloodsugars three times daily as needed BLOOD GLUCOSE MONITORING SUPPL 76739785411 No Longer Active Tu Landeros MD Active SPIRONOLACTONE 25 MG TAB 0.5 tablet by mouth daily SPIRONOLACTONE 16891812115 No Longer Active Tu Landeros MD Active TRAMADOL HCL 50 MG TABS 1 tablets every 6 hours as needed for pain TRAMADOL HCL 91242228308 Active Tu Landeros MD Active ALPRAZOLAM 0.5 MG TABS 1 tab every 6hrs as needed ALPRAZOLAM 27488431720 No Longer Active Tu Landeros MD Active B-12 100 MCG TABS Take one by mouth daily CYANOCOBALAMIN 02152406051 Active Tu Landeros MD Active AUGMENTIN 875-125 MG TAB 1 tab by mouth twice daily with food AMOXICILLIN-POT CLAVULANATE 43385024266 No Longer Active Tu Landeros MD Active PREDNISONE 20 MG TAB 2 tabs daily for 3 days, 1 tab daily for 3 days, 1/2 tab daily for 2 days PREDNISONE 51995584008 No Longer Active Tu Landeros MD Active XANAX 0.5 MG TABS 1 tablet every 6 hrs prn ALPRAZOLAM 25220225444 No Longer Active Tu Landeros MD Active PREDNISONE 20 MG TAB 2 tabs daily for 3 days, 1 tab daily for 3 days, 1/2 tab daily for 2 days PREDNISONE 56543288909 No Longer Active Tu Landeros MD Active TRIAMCINOLONE ACETONIDE 0.1 % OINT Apply to affected areas TID for up to 2 weeks TRIAMCINOLONE ACETONIDE 46050957356 No Longer Active Tu Landeros MD Active LORTAB 5 5-500 MG TABS 1/2 to 1 tablet by mouth every 4 hours as needed for pain HYDROCODONE-ACETAMINOPHEN 26147575321 No Longer Active Tu Landeros MD Active MULTIVITAMINS TABS Take one by mouth daily MULTIPLE VITAMIN 17862370919 No Longer Active Tu Landeros MD Active MELATONIN 5 MG TABS Take one by mouth daily MELATONIN 88254911165 No Longer Active Tu Landeros MD Active SOMA 350 MG TAB 1 po q 6 hours prn spasm CARISOPRODOL 92828248390 No Longer Active Tu Landeros MD Active MECLIZINE HCL 25 MG CHEW TAB 1 four times a day as needed for dizziness 08/05 MECLIZINE HCL 42869792389 No Longer Active Fab Deann Andrew MCCORMACK Active ANGEL BREEZE 2 TEST DISK test tid prn GLUCOSE BLOOD 08824175386 No Longer Active Negra Scott MICHAEL Active DICLOFENAC SODIUM 50 MG TBEC 1 tablet by mouth three times a day as needed DICLOFENAC SODIUM 85218615875 Active Tu Landeros MD Active REGLAN 10 MG TAB 1 po TID PRN [place] METOCLOPRAMIDE HCL 23624587816 No Longer Active Tu Landeros MD Active METFORMIN HCL 500 MG TABS 1 PO BID METFORMIN HCL 05851392839 No Longer Active Tu Landeros MD Active CARVEDILOL 12.5 MG TABS Take 1 by mouth twice a day CARVEDILOL 61438512779 Active Tu Landeros MD Active AMBIEN 10 MG TAB 1 tab by mouth at bedtime as needed for sleep ZOLPIDEM TARTRATE 11965268551 No Longer Active Tu Landeros MD Active FLUOXETINE HCL 40 MG CAPS 1 po q day FLUOXETINE HCL 77654608860 No Longer Active Mayra Toney Active FISH OIL 1000 MG CAPS Take one by mouth daily OMEGA-3 FATTY ACIDS 18243689553 Active Tu Landeros MD Active GLUCOSAMINE 500 MG TABS Take 2 tab po qd GLUCOSAMINE 86583016515 Active Tu Landeros MD Active TRILIPIX 135 MG CPDR 1 po qd CHOLINE FENOFIBRATE 38108095500 No Longer Active Tu Landeros MD Active ASPIRIN 81 MG CHEW TAB 1 tablet by mouth daily ASPIRIN 55960510500 Active Tu Landeros MD Active FUROSEMIDE 40 MG TAB 1 tablet by mouth daily FUROSEMIDE 01567213878 Active Tu Landeros MD Active REQUIP 2 MG TABS Take one tablet at bedtime prn ROPINIROLE HCL 92862917149 Active Tu Landeros MD Active SIMVASTATIN 40 MG TABS Take one by mouth daily SIMVASTATIN 93482084175 Active Tu Landeros MD Active KLOR-CON 10 10 MEQ CR-TABS TAKE 2 TABS DAILY POTASSIUM CHLORIDE 17710774909 Active Tu Landeros MD Active OMEPRAZOLE 20 MG TBEC 1 PO 30 MIN BEFORE 1ST MEAL OMEPRAZOLE 52750716376 Active Tu Landeros MD Active AMBIEN 10 MG TAB 1 tab by mouth at bedtime as needed for sleep AMBIEN 10 MG TAB 127963 ZOLPIDEM TARTRATE Inactive METFORMIN HCL 500 MG TABS 1 PO BID METFORMIN HCL 500 MG TABS 127843 METFORMIN HCL Inactive REGLAN 10 MG TAB 1 po TID PRN Nausea REGLAN 10 MG TAB 310846 METOCLOPRAMIDE HCL Inactive MECLIZINE HCL 25 MG CHEW TAB 1 four times a day as needed for dizziness 08/05 MECLIZINE HCL 25 MG CHEW TAB 966465 MECLIZINE HCL Inactive SOMA 350 MG TAB 1 po q 6 hours prn spasm SOMA 350 MG TAB 056318 CARISOPRODOL Inactive MELATONIN 5 MG TABS Take one by mouth daily MELATONIN 5 MG TABS 401421 MELATONIN Inactive MULTIVITAMINS TABS Take one by mouth daily MULTIVITAMINS TABS MULTIPLE VITAMIN Inactive LORTAB 5 5-500 MG TABS 1/2 to 1 tablet by mouth every 4 hours as needed for pain LORTAB 5 5-500 MG TABS HYDROCODONE- ACETAMINOPHEN Inactive XANAX 0.5 MG TABS 1 tablet every 6 hrs prn XANAX 0.5 MG TABS 939377 ALPRAZOLAM Inactive AUGMENTIN 875-125 MG TAB 1 tab by mouth twice daily with food AUGMENTIN 875-125 MG TAB 276463 AMOXICILLIN-POT CLAVULANATE Inactive ALPRAZOLAM 0.5 MG TABS 1 tab every 6hrs as needed ALPRAZOLAM 0.5 MG TABS 165057 ALPRAZOLAM Inactive SPIRONOLACTONE 25 MG TAB 0.5 tablet by mouth daily SPIRONOLACTONE 25 MG TAB 166261 SPIRONOLACTONE Inactive ACCU-CHEK KEYONA PLUS W/DEVICE KIT Use for testing bloodsugars three times daily as needed ACCU-CHEK KEYONA PLUS W/DEVICE KIT BLOOD GLUCOSE MONITORING SUPPL Inactive ACCU-CHEK KEYONA PLUS STRP Use for testing bloodsugars three times daily as needed ACCU-CHEK KEYONA PLUS STRP GLUCOSE BLOOD Inactive ACCU-CHEK FASTCLIX LANCETS MISC Use to check bloodsugar three times daily as needed ACCU-CHEK FASTCLIX LANCETS MISC 88997396924 LANCETS Inactive VENLAFAXINE HCL 75 MG TABS 1 po BID VENLAFAXINE HCL 75 MG TABS 718183 VENLAFAXINE HCL Inactive HYDROCODONE-ACETAMINOPHEN 5-500 MG TABS take one po Q 4-6 hours prn HYDROCODONE-ACETAMINOPHEN 5-500 MG TABS 565240 HYDROCODONE- ACETAMINOPHEN Inactive LORTAB 5 5-500 MG TABS 1/2 to 1 tablet by mouth every 4 hours as needed for pain LORTAB 5 5-500 MG TABS HYDROCODONE- ACETAMINOPHEN Inactive LAMISIL 250 MG TAB 1 po qd LAMISIL 250 MG TAB 193743 TERBINAFINE HCL Inactive VENLAFAXINE HCL 37.5 MG TABS 1 po BID VENLAFAXINE HCL 37.5 MG TABS 908138 VENLAFAXINE HCL Inactive CIPRO 500 MG TAB 1 tablet by mouth twice daily CIPRO 500 MG TAB 161654 CIPROFLOXACIN HCL Inactive TRIAMCINOLONE ACETONIDE 0.1 % OINT Apply to affected areas TID for up to 2 weeks TRIAMCINOLONE ACETONIDE 0.1 % OINT 2473796 TRIAMCINOLONE ACETONIDE Inactive PREDNISONE 20 MG TAB 2 tabs daily for 3 days, 1 tab daily for 3 days, 1/2 tab daily for 2 days PREDNISONE 20 MG TAB 955613 PREDNISONE Inactive PREDNISONE 20 MG TAB 2 tabs daily for 3 days, 1 tab daily for 3 days, 1/2 tab daily for 2 days PREDNISONE 20 MG TAB 108835 PREDNISONE Inactive BACTRIM DS 800-160 MG TABS 1 po BID x 7 days BACTRIM DS 800-160 MG TABS SULFAMETHOXAZOLE-TRIMETHOPRIM Inactive Immunizations Vaccine Administration Date Value Standard Description Seasonal influenza vaccine, injectable, containing preservative, for > 3 years old (Afluria, FluLaval, Fluzone, Fluvirin, Fluarix, Agriflu(>=18 yo)) Fluzone (>3 yrs.) [[id number]] Influenza, seasonal, injectable influenza immunization (Flu Vax) has been administered 02/22/2012 influenza virus vaccine, unspecified formulation Seasonal influenza vaccine, injectable, containing preservative, for > 3 years old (Afluria, FluLaval, Fluzone, Fluvirin, Fluarix, Agriflu(>=18 yo)) Fluzone (>3 yrs.) [[id number]] Influenza, seasonal, injectable Vital Signs Date Name [...] Panel - Chemistry sodium, serum 139 mmol/L 420-197 8667/11/27 potassium, serum 4.9 mmol/L 3.5-5.2 chloride, serum [...] Panel - Chemistry sodium, serum 139 mmol/L 372-863 7337/11/22 potassium, serum 4.3 mmol/L 3.5-5.2 chloride, serum [...] HGBA1C - Chemistry sodium, serum 144 mmol/L 538-499 4477/04/16 potassium, serum 4.2 mmol/L 3.5-5.2 chloride, serum [...] 0.20 mg/dL 0.00-1.00 cholesterol, serum 133 mg/dL 356-913 3989/04/16 triglyceride, serum, fasting 142 mg/dL 30-200 HDL cholesterol, serum 38 mg/dL 32-96 LDL cholesterol, serum 67 mg/dL 0-130 hemoglobin A1C, blood, as % of total hemoglobin 7.1 % 4.3-6.0 sodium, serum 142 mmol/L 454-421 1428/10/22 potassium, serum 4.9 mmol/L 3.5-5.2 chloride, serum [...] 0.30 mg/dL 0.00-1.00 cholesterol, serum 139 mg/dL 006-700 1922/10/22 triglyceride, serum, fasting 168 mg/dL 30-200 HDL [...] Yes Encounters Code Encounter Date Provider Facility CPT-09163 Level 4 Est. Patient 09:45:25 CDT Tu Landeros MD [facility] CPT-85351 Level 4 Est. 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 Patient 14:09:06 CDT Tu Landeros MD [facility] CPT-54305 Level 3 Est. Patient 13:36:54 CDT Tu Landeros MD [facility] CPT-63684 Level 3 Est. Patient 08:59:14 CDT Tu Landeros MD [facility] CPT-14457 Level 3 Est. Patient 13:48:35 CDT Fab Morales DO [facility] CPT-71349 Level 4 Est. Patient 10:05:48 CDT Tu Landeros MD [facility] CPT-24424 Level 3 Est. Patient 13:38:42 CDT Marek BANKS [facility] CPT-41811 Level 5 Est. Patient 08:08:39 CDT Jerrica FRANCIS [facility] CPT-82814 Level 4 Est. Patient 14:23:38 CDT Tu Landeros MD [facility] CPT-68859 Level 3 Est. Patient 11:44:04 CDT Tu Landeros MD [facility] CPT-86517 Level 3 Est. 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 CPT-30922 Level 3 Est. 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 CPT-22818 Level 3 Est. Patient 12:42:49 CDT Tu Landeros MD [facility] CPT-89061 Level 3 Est. Patient 11:52:06 CDT Tu Landeros MD [facility] CPT-69653 Level 3 Est. Patient 13:58:11 CDT Tu Landeros MD [facility] CPT-76729 Level 3 Est. Patient 17:50:07 CDT Fab Morales DO [facility] CPT-16567 Level 3 Est. Patient 12:06:29 CDT Elvira Cervantes MD PhD [facility] CPT-58370 Level 3 Est. Patient 15:50:32 CDT Tu Landeros MD [facility] CPT-32990 Level 4 Est. Patient 16:08:29 CDT Tu Landeros MD [facility] CPT-41911 Level 3 Est. Patient 16:04:19 CDT Tu Landeros MD [facility] CPT-36309 Level 3 Est. 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 CPT-64664 Level 4 Est. Patient 16:24:02 GRAIN OPERATOR Tu Landeros MD [facility] CPT-42045 Level 3 Est. 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 Procedures Code Procedure Name Date Entry Date Standard Description CPT-000 Give Zostavax 14:09:06 CDT CPT-74932 Administration single or combination vaccine inc oral 15 :19:04 CDT CPT-03049 Zoster Vaccine (Zostavax) 15:19:04 CDT CPT-18129 Administration single or combination vaccine inc oral 20 :51:03 CDT CPT-73317 Influenza split virus > age 3 20:51:03 CDT CPT-13714 No Charge Offi Visit 14:52:03 CDT CPT-OV Office Visit 14:57:43 CDT CPT-OV Office Visit 15:22:32 CDT CPT-27356 Administration single or combination vaccine inc oral 11 :33:15 CDT CPT-13818 Influenza split virus > age 3 11:33:15 CDT
--- OUTSIDE RECORDS SUMMARY | 2018-04-25 19:58 | XMS REPORT | Clinical Summary ---
Author Author Admin, SACHI Organization [facility] Address Unknown Phone Allergies, Adverse Reactions, [...] 6 hours as needed for pain HYDROCODONE-ACETAMINOPHEN 13507240684 Active Tu Landeros MD Active METFORMIN HCL 500 MG TB24 1.5 po BID METFORMIN HCL 94783595152 Active Tu Landeros MD Active GABAPENTIN 100 MG CAPS 3 po tid GABAPENTIN 54004604515 Active Tu Landeros MD Active CIPRO 500 MG TAB 1 tablet by mouth twice daily CIPROFLOXACIN HCL 05014847153 No Longer Active Tu Landeros MD Active VENLAFAXINE HCL 75 MG TABS 1 po BID VENLAFAXINE HCL 77645333478 Active Tu Landeros MD Active VENLAFAXINE HCL 37.5 MG TABS 1 po BID VENLAFAXINE HCL 39048375263 No Longer Active Suze Corey RMA Active [employer] STOOL SOFTENER 100 MG CAPS 1 tab daily DOCUSATE SODIUM 61127084518 Active Tu Landeros MD Active LAMISIL 250 MG TAB 1 po qd TERBINAFINE HCL 26047457411 No Longer Active Tu Landeros MD Active LORTAB 5 5-500 MG TABS 1/2 to 1 tablet by mouth every 4 hours as needed for pain HYDROCODONE-ACETAMINOPHEN 62161369000 No Longer Active Tu Landeros MD Active FENOFIBRATE 145 MG TABS 1 po qd FENOFIBRATE 01364375086 Active Tu Landeros MD Active ENALAPRIL MALEATE 20 MG TABS 1.5 po qd ENALAPRIL MALEATE 88310458320 Active Tu Landeros MD Active HYDROCODONE-ACETAMINOPHEN 5-500 MG TABS take one po Q 4-6 hours prn HYDROCODONE-ACETAMINOPHEN 32042257894 No Longer Active Tu Landeros MD Active BACTRIM DS 800-160 MG TABS 1 po BID x 7 days SULFAMETHOXAZOLE-TRIMETHOPRIM 86186743146 No Longer Active Tu Landeros MD Active VENLAFAXINE HCL 75 MG TABS 1 po BID VENLAFAXINE HCL 49539345012 No Longer Active Elvira Cervantes MD PhD Active TRUERESULT BLOOD GLUCOSE W/DEVICE KIT use to test blood sugar tid dx: 250.00 BLOOD GLUCOSE MONITORING SUPPL 91744171359 Active Tu Landeros MD Active TRUETEST TEST STRP test blood sugar three times daily dx: 250.00 GLUCOSE BLOOD 98043636654 Active Tu Landeros MD Active ACCU-CHEK FASTCLIX LANCETS MISC Use to check bloodsugar three times daily as needed LANCETS 56909760760 No Longer Active Tu Landeros MD Active ACCU-CHEK KEYONA PLUS STRP Use for testing bloodsugars three times daily as needed GLUCOSE BLOOD 90104649586 No Longer Active Tu Landeros MD Active ACCU-CHEK KEYONA PLUS W/DEVICE KIT Use for testing bloodsugars three times daily as needed BLOOD GLUCOSE MONITORING SUPPL 23205284663 No Longer Active Tu Landeros MD Active SPIRONOLACTONE 25 MG TAB 0.5 tablet by mouth daily SPIRONOLACTONE 80378398952 No Longer Active Tu Landeros MD Active TRAMADOL HCL 50 MG TABS 1 tablets every 6 hours as needed for pain TRAMADOL HCL 86937395743 Active Tu Landeros MD Active ALPRAZOLAM 0.5 MG TABS 1 tab every 6hrs as needed ALPRAZOLAM 49934374922 No Longer Active Tu Landeros MD Active B-12 100 MCG TABS Take one by mouth daily CYANOCOBALAMIN 24868849888 Active Tu Landeros MD Active AUGMENTIN 875-125 MG TAB 1 tab by mouth twice daily with food AMOXICILLIN-POT CLAVULANATE 47262655876 No Longer Active Tu Landeros MD Active PREDNISONE 20 MG TAB 2 tabs daily for 3 days, 1 tab daily for 3 days, 1/2 tab daily for 2 days PREDNISONE 01969842535 No Longer Active Tu Landeros MD Active XANAX 0.5 MG TABS 1 tablet every 6 hrs prn ALPRAZOLAM 78828709097 No Longer Active Tu Landeros MD Active PREDNISONE 20 MG TAB 2 tabs daily for 3 days, 1 tab daily for 3 days, 1/2 tab daily for 2 days PREDNISONE 61207927255 No Longer Active Tu Landeros MD Active TRIAMCINOLONE ACETONIDE 0.1 % OINT Apply to affected areas TID for up to 2 weeks TRIAMCINOLONE ACETONIDE 55699413290 No Longer Active Tu Landeros MD Active LORTAB 5 5-500 MG TABS 1/2 to 1 tablet by mouth every 4 hours as needed for pain HYDROCODONE-ACETAMINOPHEN 92383650487 No Longer Active Tu Landeros MD Active MULTIVITAMINS TABS Take one by mouth daily MULTIPLE VITAMIN 45129274203 No Longer Active Tu Landeros MD Active MELATONIN 5 MG TABS Take one by mouth daily MELATONIN 63522084057 No Longer Active Tu Landeros MD Active SOMA 350 MG TAB 1 po q 6 hours prn spasm CARISOPRODOL 34999378539 No Longer Active Tu Landeros MD Active MECLIZINE HCL 25 MG CHEW TAB 1 four times a day as needed for dizziness 08/05 MECLIZINE HCL 67538860554 No Longer Active Fab Deann Andrew MCCORMACK Active ANGEL BREEZE 2 TEST DISK test tid prn GLUCOSE BLOOD 07970736235 No Longer Active Negra Scott MICHAEL Active DICLOFENAC SODIUM 50 MG TBEC 1 tablet by mouth three times a day as needed DICLOFENAC SODIUM 17065512064 Active Tu Landeros MD Active REGLAN 10 MG TAB 1 po TID PRN [place] METOCLOPRAMIDE HCL 13265937486 No Longer Active Tu Landeros MD Active METFORMIN HCL 500 MG TABS 1 PO BID METFORMIN HCL 08334826812 No Longer Active Tu Landeros MD Active CARVEDILOL 12.5 MG TABS Take 1 by mouth twice a day CARVEDILOL 60736322876 Active Tu Landeros MD Active AMBIEN 10 MG TAB 1 tab by mouth at bedtime as needed for sleep ZOLPIDEM TARTRATE 35098512042 No Longer Active Tu Landeros MD Active FLUOXETINE HCL 40 MG CAPS 1 po q day FLUOXETINE HCL 71058032908 No Longer Active Mayra [place] Active FISH OIL 1000 MG CAPS Take one by mouth daily OMEGA-3 FATTY ACIDS 14647347712 Active Tu Landeros MD Active GLUCOSAMINE 500 MG TABS Take 2 tab po qd GLUCOSAMINE 04856918403 Active Tu Landeros MD Active TRILIPIX 135 MG CPDR 1 po qd CHOLINE FENOFIBRATE 70504476184 No Longer Active Tu Landeros MD Active ASPIRIN 81 MG CHEW TAB 1 tablet by mouth daily ASPIRIN 20579240221 Active Tu Landeros MD Active FUROSEMIDE 40 MG TAB 1 tablet by mouth daily FUROSEMIDE 80748468639 Active Tu Landeros MD Active REQUIP 2 MG TABS Take one tablet at bedtime prn ROPINIROLE HCL 99067268136 Active Tu Landeros MD Active SIMVASTATIN 40 MG TABS Take one by mouth daily SIMVASTATIN 53820711843 Active Tu Landeros MD Active KLOR-CON 10 10 MEQ CR-TABS TAKE 2 TABS DAILY POTASSIUM CHLORIDE 03137797648 Active Tu Landeros MD Active OMEPRAZOLE 20 MG TBEC 1 PO 30 MIN BEFORE 1ST MEAL OMEPRAZOLE 67522650640 Active Tu Landeros MD Active AMBIEN 10 MG TAB 1 tab by mouth at bedtime as needed for sleep AMBIEN 10 MG TAB 437791 ZOLPIDEM TARTRATE Inactive METFORMIN HCL 500 MG TABS 1 PO BID METFORMIN HCL 500 MG TABS 954028 METFORMIN HCL Inactive REGLAN 10 MG TAB 1 po TID PRN Nausea REGLAN 10 MG TAB 924117 METOCLOPRAMIDE HCL Inactive MECLIZINE HCL 25 MG CHEW TAB 1 four times a day as needed for dizziness 08/05 MECLIZINE HCL 25 MG CHEW TAB 059662 MECLIZINE HCL Inactive SOMA 350 MG TAB 1 po q 6 hours prn spasm SOMA 350 MG TAB 525364 CARISOPRODOL Inactive MELATONIN 5 MG TABS Take one by mouth daily MELATONIN 5 MG TABS 310104 MELATONIN Inactive MULTIVITAMINS TABS Take one by mouth daily MULTIVITAMINS TABS MULTIPLE VITAMIN Inactive LORTAB 5 5-500 MG TABS 1/2 to 1 tablet by mouth every 4 hours as needed for pain LORTAB 5 5-500 MG TABS HYDROCODONE- ACETAMINOPHEN Inactive XANAX 0.5 MG TABS 1 tablet every 6 hrs prn XANAX 0.5 MG TABS 676863 ALPRAZOLAM Inactive AUGMENTIN 875-125 MG TAB 1 tab by mouth twice daily with food AUGMENTIN 875-125 MG TAB 152152 AMOXICILLIN-POT CLAVULANATE Inactive ALPRAZOLAM 0.5 MG TABS 1 tab every 6hrs as needed ALPRAZOLAM 0.5 MG TABS 576423 ALPRAZOLAM Inactive SPIRONOLACTONE 25 MG TAB 0.5 tablet by mouth daily SPIRONOLACTONE 25 MG TAB 425704 SPIRONOLACTONE Inactive ACCU-CHEK KEYONA PLUS W/DEVICE KIT Use for testing bloodsugars three times daily as needed ACCU-CHEK KEYONA PLUS W/DEVICE KIT BLOOD GLUCOSE MONITORING SUPPL Inactive ACCU-CHEK KEYONA PLUS STRP Use for testing bloodsugars three times daily as needed ACCU-CHEK KEYONA PLUS STRP GLUCOSE BLOOD Inactive ACCU-CHEK FASTCLIX LANCETS MISC Use to check bloodsugar three times daily as needed ACCU-CHEK FASTCLIX LANCETS MISC 04308887778 LANCETS Inactive VENLAFAXINE HCL 75 MG TABS 1 po BID VENLAFAXINE HCL 75 MG TABS 267867 VENLAFAXINE HCL Inactive HYDROCODONE-ACETAMINOPHEN 5-500 MG TABS take one po Q 4-6 hours prn HYDROCODONE-ACETAMINOPHEN 5-500 MG TABS 687976 HYDROCODONE- ACETAMINOPHEN Inactive LORTAB 5 5-500 MG TABS 1/2 to 1 tablet by mouth every 4 hours as needed for pain LORTAB 5 5-500 MG TABS HYDROCODONE- ACETAMINOPHEN Inactive LAMISIL 250 MG TAB 1 po qd LAMISIL 250 MG TAB 731103 TERBINAFINE HCL Inactive VENLAFAXINE HCL 37.5 MG TABS 1 po BID VENLAFAXINE HCL 37.5 MG TABS 066840 VENLAFAXINE HCL Inactive CIPRO 500 MG TAB 1 tablet by mouth twice daily CIPRO 500 MG TAB 510988 CIPROFLOXACIN HCL Inactive TRIAMCINOLONE ACETONIDE 0.1 % OINT Apply to affected areas TID for up to 2 weeks TRIAMCINOLONE ACETONIDE 0.1 % OINT 2673898 TRIAMCINOLONE ACETONIDE Inactive PREDNISONE 20 MG TAB 2 tabs daily for 3 days, 1 tab daily for 3 days, 1/2 tab daily for 2 days PREDNISONE 20 MG TAB 371997 PREDNISONE Inactive PREDNISONE 20 MG TAB 2 tabs daily for 3 days, 1 tab daily for 3 days, 1/2 tab daily for 2 days PREDNISONE 20 MG TAB 448392 PREDNISONE Inactive BACTRIM DS 800-160 MG TABS 1 po BID x 7 days BACTRIM DS 800-160 MG TABS SULFAMETHOXAZOLE-TRIMETHOPRIM Inactive Immunizations Vaccine Administration Date Value Standard Description Seasonal influenza vaccine, injectable, containing preservative, for > 3 years old (Afluria, FluLaval, Fluzone, Fluvirin, Fluarix, Agriflu(>=18 yo)) Fluzone (>3 yrs.) [[id number]] Influenza, seasonal, injectable influenza immunization (Flu Vax) has been administered 02/22/2012 influenza virus vaccine, unspecified formulation Seasonal influenza vaccine, injectable, containing preservative, for > 3 years old (Afluria, FluLaval, Fluzone, Fluvirin, Fluarix, Agriflu(>=18 yo)) Fluzone (>3 yrs.) [[id number]] Influenza, seasonal, injectable Vital Signs Date Name [...] Panel - Chemistry sodium, serum 139 mmol/L 318-437 0239/11/27 potassium, serum 4.9 mmol/L 3.5-5.2 chloride, serum [...] Panel - Chemistry sodium, serum 139 mmol/L 596-433 6214/11/22 potassium, serum 4.3 mmol/L 3.5-5.2 chloride, serum [...] HGBA1C - Chemistry sodium, serum 144 mmol/L 667-348 5492/04/16 potassium, serum 4.2 mmol/L 3.5-5.2 chloride, serum [...] 0.20 mg/dL 0.00-1.00 cholesterol, serum 133 mg/dL 480-784 4407/04/16 triglyceride, serum, fasting 142 mg/dL 30-200 HDL cholesterol, serum 38 mg/dL 32-96 LDL cholesterol, serum 67 mg/dL 0-130 hemoglobin A1C, blood, as % of total hemoglobin 7.1 % 4.3-6.0 sodium, serum 142 mmol/L 788-543 1156/10/22 potassium, serum 4.9 mmol/L 3.5-5.2 chloride, serum [...] 0.30 mg/dL 0.00-1.00 cholesterol, serum 139 mg/dL 554-044 3406/10/22 triglyceride, serum, fasting 168 mg/dL 30-200 HDL [...] Yes Encounters Code Encounter Date Provider Facility CPT-53074 Level 4 Est. Patient 09:45:25 CDT Tu Landeros MD [facility] CPT-81519 Level 4 Est. Patient 09:05:20 DRONE OPERATOR Tu Landeros MD [facility] CPT-00835 Level 4 Est. Patient 14:09:06 CDT Tu Landeros MD [facility] CPT-02447 Level 3 Est. Patient 13:36:54 CDT Tu Landeros MD [facility] CPT-17444 Level 3 Est. Patient 08:59:14 CDT Tu Landeros MD [facility] CPT-74467 Level 3 Est. Patient 13:48:35 CDT Fab Morales DO [facility] CPT-09051 Level 4 Est. Patient 10:05:48 CDT Tu Landeros MD [facility] CPT-11435 Level 3 Est. Patient 13:38:42 CDT Marek BANKS [facility] CPT-15155 Level 5 Est. Patient 08:08:39 CDT Jerrica FRANCIS [facility] CPT-45642 Level 4 Est. Patient 14:23:38 CDT Tu Landeros MD [facility] CPT-39642 Level 3 Est. Patient 11:44:04 CDT Tu Landeros MD [facility] CPT-06944 Level 3 Est. Patient 11:03:20 DRONE OPERATOR Tu Landeros MD [facility] CPT-14811 Level 3 Est. Patient 11:03:14 DRONE OPERATOR Tu Landeros MD [facility] CPT-96747 Level 3 Est. Patient 12:42:49 CDT Tu Landeros MD [facility] CPT-95200 Level 3 Est. Patient 11:52:06 CDT Tu Landeros MD [facility] CPT-59350 Level 3 Est. Patient 13:58:11 CDT Tu Landeros MD [facility] CPT-40362 Level 3 Est. Patient 17:50:07 CDT Fab Morales DO [facility] CPT-39422 Level 3 Est. Patient 12:06:29 CDT Elvira Cervantes MD PhD [facility] CPT-17438 Level 3 Est. Patient 15:50:32 CDT Tu Landeros MD [facility] CPT-43050 Level 4 Est. Patient 16:08:29 CDT Tu Landeros MD [facility] CPT-32501 Level 3 Est. Patient 16:04:19 CDT Tu Landeros MD [facility] CPT-23685 Level 3 Est. Patient 11:22:30 DRONE OPERATOR Tu Landeros MD [facility] CPT-42994 Level 4 Est. Patient 16:24:02 DRONE OPERATOR Tu Landeros MD [facility] CPT-03040 Level 3 Est. Patient 17:21:23 DRONE OPERATOR Tu Landeros MD [facility] Procedures Code Procedure Name Date Entry Date Standard Description CPT-000 Give Zostavax 14:09:06 CDT CPT-89697 Administration single or combination vaccine inc oral 15 :19:04 CDT CPT-58348 Zoster Vaccine (Zostavax) 15:19:04 CDT CPT-27657 Administration single or combination vaccine inc oral 20 :51:03 CDT CPT-92691 Influenza split virus > age 3 20:51:03 CDT CPT-97248 No Charge Offi Visit 14:52:03 CDT CPT-OV Office Visit 14:57:43 CDT CPT-OV Office Visit 15:22:32 CDT CPT-58589 Administration single or combination vaccine inc oral 11 :33:15 CDT CPT-89379 Influenza split virus > age 3 11:33:15 CDT
--- OUTSIDE RECORDS SUMMARY | 2018-04-25 19:59 | XMS REPORT | Clinical Summary ---
Author Author Admin, SACHI Organization [facility] Address Unknown Phone Allergies, Adverse Reactions, Alerts [...] MD CONTUSION OF UNSPECIFIED SITE ICD-924.9 Inactive uT Landeros MD PRESSURE ULCER UNSPECIFIED SITE ICD-707.00 Inactive Tu Landeros MD LOCALIZED SUPERFICIAL SWELLING MASS OR LUMP ICD-782.2 Inactive Tu Landeros MD ONYCHOMYCOSIS ICD-110.1 Inactive Tu Landeros MD Medication List Medication Instructions Start Date Stop Date Generic Name NDC Status Provider Patient Instruction HYDROCODONE-ACETAMINOPHEN 5-325 MG TABS 1 tab by mouth every 6 hours as needed for pain HYDROCODONE-ACETAMINOPHEN 65780329054 Active Tu Landeros MD Active METFORMIN HCL 500 MG TB24 1.5 po BID METFORMIN HCL 05047141370 Active Tu Landeros MD Active GABAPENTIN 100 MG CAPS 3 po tid GABAPENTIN 54374646543 Active Tu Landeros MD Active CIPRO 500 MG TAB 1 tablet by mouth twice daily CIPROFLOXACIN HCL 39276239149 No Longer Active Tu Landeros MD Active VENLAFAXINE HCL 75 MG TABS 1 po BID VENLAFAXINE HCL 21778108572 Active Tu Landeros MD Active VENLAFAXINE HCL 37.5 MG TABS 1 po BID VENLAFAXINE HCL 90436210957 No Longer Active Suze Corey RMA Active [employer] STOOL SOFTENER 100 MG CAPS 1 tab daily DOCUSATE SODIUM 14369937968 Active Tu Landeros MD Active LAMISIL 250 MG TAB 1 po qd TERBINAFINE HCL 38702100533 No Longer Active Tu Landeros MD Active LORTAB 5 5-500 MG TABS 1/2 to 1 tablet by mouth every 4 hours as needed for pain HYDROCODONE-ACETAMINOPHEN 15997924616 No Longer Active Tu Landeros MD Active FENOFIBRATE 145 MG TABS 1 po qd FENOFIBRATE 40909459459 Active Tu Landeros MD Active ENALAPRIL MALEATE 20 MG TABS 1.5 po qd ENALAPRIL MALEATE 73015398678 Active Tu Landeros MD Active HYDROCODONE-ACETAMINOPHEN 5-500 MG TABS take one po Q 4-6 hours prn HYDROCODONE-ACETAMINOPHEN 32544127591 No Longer Active Tu Landeros MD Active BACTRIM DS 800-160 MG TABS 1 po BID x 7 days SULFAMETHOXAZOLE-TRIMETHOPRIM 55502484079 No Longer Active Tu Landeros MD Active VENLAFAXINE HCL 75 MG TABS 1 po BID VENLAFAXINE HCL 07768689609 No Longer Active Elvira Cervantes MD PhD Active TRUERESULT BLOOD GLUCOSE W/DEVICE KIT use to test blood sugar tid dx: 250.00 BLOOD GLUCOSE MONITORING SUPPL 20354800931 Active Tu Landeros MD Active TRUETEST TEST STRP test blood sugar three times daily dx: 250.00 GLUCOSE BLOOD 20732240619 Active Tu Landeros MD Active ACCU-CHEK FASTCLIX LANCETS MISC Use to check bloodsugar three times daily as needed LANCETS 58469104948 No Longer Active Tu Landeros MD Active ACCU-CHEK KEYONA PLUS STRP Use for testing bloodsugars three times daily as needed GLUCOSE BLOOD 05059056599 No Longer Active Tu Landeros MD Active ACCU-CHEK KEYONA PLUS W/DEVICE KIT Use for testing bloodsugars three times daily as needed BLOOD GLUCOSE MONITORING SUPPL 88550011251 No Longer Active Tu Landeros MD Active SPIRONOLACTONE 25 MG TAB 0.5 tablet by mouth daily SPIRONOLACTONE 22184394126 No Longer Active Tu Landeros MD Active TRAMADOL HCL 50 MG TABS 1 tablets every 6 hours as needed for pain TRAMADOL HCL 45053168695 Active Tu Landeros MD Active ALPRAZOLAM 0.5 MG TABS 1 tab every 6hrs as needed ALPRAZOLAM 05040615135 No Longer Active Tu Landeros MD Active B-12 100 MCG TABS Take one by mouth daily CYANOCOBALAMIN 84381518709 Active Tu Landeros MD Active AUGMENTIN 875-125 MG TAB 1 tab by mouth twice daily with food AMOXICILLIN-POT CLAVULANATE 93042542539 No Longer Active Tu Landeros MD Active PREDNISONE 20 MG TAB 2 tabs daily for 3 days, 1 tab daily for 3 days, 1/2 tab daily for 2 days PREDNISONE 08788681828 No Longer Active Tu Landeros MD Active XANAX 0.5 MG TABS 1 tablet every 6 hrs prn ALPRAZOLAM 28252241669 No Longer Active Tu Landeros MD Active PREDNISONE 20 MG TAB 2 tabs daily for 3 days, 1 tab daily for 3 days, 1/2 tab daily for 2 days PREDNISONE 81214589078 No Longer Active Tu Landeros MD Active TRIAMCINOLONE ACETONIDE 0.1 % OINT Apply to affected areas TID for up to 2 weeks TRIAMCINOLONE ACETONIDE 16694562973 No Longer Active Tu Landeros MD Active LORTAB 5 5-500 MG TABS 1/2 to 1 tablet by mouth every 4 hours as needed for pain HYDROCODONE-ACETAMINOPHEN 03680640545 No Longer Active Tu Landeros MD Active MULTIVITAMINS TABS Take one by mouth daily MULTIPLE VITAMIN 04533491436 No Longer Active Tu Landeros MD Active MELATONIN 5 MG TABS Take one by mouth daily MELATONIN 50104635827 No Longer Active Tu Landeros MD Active SOMA 350 MG TAB 1 po q 6 hours prn spasm CARISOPRODOL 53667292845 No Longer Active Tu Landeros MD Active MECLIZINE HCL 25 MG CHEW TAB 1 four times a day as needed for dizziness 08/05 MECLIZINE HCL 92383544578 No Longer Active Fab Deann Andrew MCCORMACK Active ANGEL BREEZE 2 TEST DISK test tid prn GLUCOSE BLOOD 86064113374 No Longer Active Negra cSott MICHAEL Active DICLOFENAC SODIUM 50 MG TBEC 1 tablet by mouth three times a day as needed DICLOFENAC SODIUM 41271929809 Active Tu Landeros MD Active REGLAN 10 MG TAB 1 po TID PRN Nausea METOCLOPRAMIDE HCL 59109518394 No Longer Active Tu Landeros MD Active METFORMIN HCL 500 MG TABS 1 PO BID METFORMIN HCL 40462273985 No Longer Active Tu Landeros MD Active CARVEDILOL 12.5 MG TABS Take 1 by mouth twice a day CARVEDILOL 35155494860 Active Tu Landeros MD Active AMBIEN 10 MG TAB 1 tab by mouth at bedtime as needed for sleep ZOLPIDEM TARTRATE 66651725170 No Longer Active Tu Landeros MD Active FLUOXETINE HCL 40 MG CAPS 1 po q day FLUOXETINE HCL 55330649581 No Longer Active Mayra Peever Active FISH OIL 1000 MG CAPS Take one by mouth daily OMEGA-3 FATTY ACIDS 06159138538 Active Tu Landeros MD Active GLUCOSAMINE 500 MG TABS Take 2 tab po qd GLUCOSAMINE 96872421303 Active Tu Landeros MD Active TRILIPIX 135 MG CPDR 1 po qd CHOLINE FENOFIBRATE 99589564182 No Longer Active Tu Landeros MD Active ASPIRIN 81 MG CHEW TAB 1 tablet by mouth daily ASPIRIN 65093040927 Active Tu Landeros MD Active FUROSEMIDE 40 MG TAB 1 tablet by mouth daily FUROSEMIDE 08475561816 Active Tu Landeros MD Active REQUIP 2 MG TABS Take one tablet at bedtime prn ROPINIROLE HCL 60085312665 Active Tu Landeros MD Active SIMVASTATIN 40 MG TABS Take one by mouth daily SIMVASTATIN 74965320679 Active Tu Landeros MD Active KLOR-CON 10 10 MEQ CR-TABS TAKE 2 TABS DAILY POTASSIUM CHLORIDE 92877297516 Active Tu Landeros MD Active OMEPRAZOLE 20 MG TBEC 1 PO 30 MIN BEFORE 1ST MEAL OMEPRAZOLE 11637080430 Active Tu Landeros MD Active AMBIEN 10 MG TAB 1 tab by mouth at bedtime as needed for sleep AMBIEN 10 MG TAB 712804 ZOLPIDEM TARTRATE Inactive METFORMIN HCL 500 MG TABS 1 PO BID METFORMIN HCL 500 MG TABS 363895 METFORMIN HCL Inactive REGLAN 10 MG TAB 1 po TID PRN Nausea REGLAN 10 MG TAB 663498 METOCLOPRAMIDE HCL Inactive MECLIZINE HCL 25 MG CHEW TAB 1 four times a day as needed for dizziness 08/05 MECLIZINE HCL 25 MG CHEW TAB 593484 MECLIZINE HCL Inactive SOMA 350 MG TAB 1 po q 6 hours prn spasm SOMA 350 MG TAB 723569 CARISOPRODOL Inactive MELATONIN 5 MG TABS Take one by mouth daily MELATONIN 5 MG TABS 198016 MELATONIN Inactive MULTIVITAMINS TABS Take one by mouth daily MULTIVITAMINS TABS MULTIPLE VITAMIN Inactive LORTAB 5 5-500 MG TABS 1/2 to 1 tablet by mouth every 4 hours as needed for pain LORTAB 5 5-500 MG TABS HYDROCODONE- ACETAMINOPHEN Inactive XANAX 0.5 MG TABS 1 tablet every 6 hrs prn XANAX 0.5 MG TABS 766787 ALPRAZOLAM Inactive AUGMENTIN 875-125 MG TAB 1 tab by mouth twice daily with food AUGMENTIN 875-125 MG TAB 410297 AMOXICILLIN-POT CLAVULANATE Inactive ALPRAZOLAM 0.5 MG TABS 1 tab every 6hrs as needed ALPRAZOLAM 0.5 MG TABS 557916 ALPRAZOLAM Inactive SPIRONOLACTONE 25 MG TAB 0.5 tablet by mouth daily SPIRONOLACTONE 25 MG TAB 486435 SPIRONOLACTONE Inactive ACCU-CHEK KEYONA PLUS W/DEVICE KIT Use for testing bloodsugars three times daily as needed ACCU-CHEK KEYONA PLUS W/DEVICE KIT BLOOD GLUCOSE MONITORING SUPPL Inactive ACCU-CHEK KEYONA PLUS STRP Use for testing bloodsugars three times daily as needed ACCU-CHEK KEYONA PLUS STRP GLUCOSE BLOOD Inactive ACCU-CHEK FASTCLIX LANCETS MISC Use to check bloodsugar three times daily as needed ACCU-CHEK FASTCLIX LANCETS MISC 33062403538 LANCETS Inactive VENLAFAXINE HCL 75 MG TABS 1 po BID VENLAFAXINE HCL 75 MG TABS 689047 VENLAFAXINE HCL Inactive HYDROCODONE-ACETAMINOPHEN 5-500 MG TABS take one po Q 4-6 hours prn HYDROCODONE-ACETAMINOPHEN 5-500 MG TABS 599878 HYDROCODONE- ACETAMINOPHEN Inactive LORTAB 5 5-500 MG TABS 1/2 to 1 tablet by mouth every 4 hours as needed for pain LORTAB 5 5-500 MG TABS HYDROCODONE- ACETAMINOPHEN Inactive LAMISIL 250 MG TAB 1 po qd LAMISIL 250 MG TAB 540766 TERBINAFINE HCL Inactive VENLAFAXINE HCL 37.5 MG TABS 1 po BID VENLAFAXINE HCL 37.5 MG TABS 040372 VENLAFAXINE HCL Inactive CIPRO 500 MG TAB 1 tablet by mouth twice daily CIPRO 500 MG TAB 628957 CIPROFLOXACIN HCL Inactive TRIAMCINOLONE ACETONIDE 0.1 % OINT Apply to affected areas TID for up to 2 weeks TRIAMCINOLONE ACETONIDE 0.1 % OINT 4735622 TRIAMCINOLONE ACETONIDE Inactive PREDNISONE 20 MG TAB 2 tabs daily for 3 days, 1 tab daily for 3 days, 1/2 tab daily for 2 days PREDNISONE 20 MG TAB 992125 PREDNISONE Inactive PREDNISONE 20 MG TAB 2 tabs daily for 3 days, 1 tab daily for 3 days, 1/2 tab daily for 2 days PREDNISONE 20 MG TAB 485628 PREDNISONE Inactive BACTRIM DS 800-160 MG TABS 1 po BID x 7 days BACTRIM DS 800-160 MG TABS SULFAMETHOXAZOLE-TRIMETHOPRIM Inactive Immunizations Vaccine Administration Date Value Standard Description Seasonal influenza vaccine, injectable, containing preservative, for > 3 years old (Afluria, FluLaval, Fluzone, Fluvirin, Fluarix, Agriflu(>=18 yo)) Fluzone (>3 yrs.) [[id number]] Influenza, seasonal, injectable influenza immunization (Flu Vax) has been administered 02/22/2012 influenza virus vaccine, unspecified formulation Seasonal influenza vaccine, injectable, containing preservative, for > 3 years old (Afluria, FluLaval, Fluzone, Fluvirin, Fluarix, Agriflu(>=18 yo)) Fluzone (>3 yrs.) [[id number]] Influenza, seasonal, injectable Vital Signs Date Name [...] Panel - Chemistry sodium, serum 139 mmol/L 601-608 3709/11/27 potassium, serum 4.9 mmol/L 3.5-5.2 chloride, serum [...] Panel - Chemistry sodium, serum 139 mmol/L 347-849 0364/11/22 potassium, serum 4.3 mmol/L 3.5-5.2 chloride, serum [...] HGBA1C - Chemistry sodium, serum 144 mmol/L 919-411 3183/04/16 potassium, serum 4.2 mmol/L 3.5-5.2 chloride, serum [...] 0.20 mg/dL 0.00-1.00 cholesterol, serum 133 mg/dL 853-522 1732/04/16 triglyceride, serum, fasting 142 mg/dL 30-200 HDL cholesterol, serum 38 mg/dL 32-96 LDL cholesterol, serum 67 mg/dL 0-130 hemoglobin A1C, blood, as % of total hemoglobin 7.1 % 4.3-6.0 sodium, serum 142 mmol/L 086-862 3016/10/22 potassium, serum 4.9 mmol/L 3.5-5.2 chloride, serum [...] 0.30 mg/dL 0.00-1.00 cholesterol, serum 139 mg/dL 682-747 1024/10/22 triglyceride, serum, fasting 168 mg/dL 30-200 HDL [...] Yes Encounters Code Encounter Date Provider Facility CPT-36770 Level 4 Est. Patient 09:45:25 CDT Tu Landeros MD [facility] CPT-32687 Level 4 Est. Patient 09:05:20 VETERINARIAN ASSISTANT Tu Landeros MD [facility] CPT-50462 Level 4 Est. Patient 14:09:06 CDT Tu Landeros MD [facility] CPT-95208 Level 3 Est. Patient 13:36:54 CDT Tu Landeros MD [facility] CPT-84052 Level 3 Est. Patient 08:59:14 CDT Tu Landeros MD [facility] CPT-08082 Level 3 Est. Patient 13:48:35 CDT Fab Morales DO [facility] CPT-45412 Level 4 Est. Patient 10:05:48 CDT Tu Landeros MD [facility] CPT-00368 Level 3 Est. Patient 13:38:42 CDT Marek BANKS [facility] CPT-92556 Level 5 Est. Patient 08:08:39 CDT Jerrica FRANCIS [facility] CPT-36923 Level 4 Est. Patient 14:23:38 CDT Tu Landeros MD [facility] CPT-64903 Level 3 Est. Patient 11:44:04 CDT Tu Landeros MD [facility] CPT-81044 Level 3 Est. Patient 11:03:20 VETERINARIAN ASSISTANT Tu Landeros MD [facility] CPT-86364 Level 3 Est. Patient 11:03:14 VETERINARIAN ASSISTANT Tu Landeros MD [facility] CPT-69828 Level 3 Est. Patient 12:42:49 CDT Tu Landeros MD [facility] CPT-87443 Level 3 Est. Patient 11:52:06 CDT Tu Landeros MD [facility] CPT-34803 Level 3 Est. Patient 13:58:11 CDT Tu Landeros MD [facility] CPT-85094 Level 3 Est. Patient 17:50:07 CDT Fab Morales DO [facility] CPT-12748 Level 3 Est. Patient 12:06:29 CDT Elvira Cervantes MD PhD [facility] CPT-21532 Level 3 Est. Patient 15:50:32 CDT Tu Landeros MD [facility] CPT-33352 Level 4 Est. Patient 16:08:29 CDT Tu Landeros MD [facility] CPT-05137 Level 3 Est. Patient 16:04:19 CDT Tu Landeros MD [facility] CPT-21605 Level 3 Est. Patient 11:22:30 VETERINARIAN ASSISTANT Tu Landeros MD [facility] CPT-82018 Level 4 Est. Patient 16:24:02 VETERINARIAN ASSISTANT Tu Landeros MD [facility] CPT-51935 Level 3 Est. Patient 17:21:23 VETERINARIAN ASSISTANT Tu Landeros MD [facility] Procedures Code Procedure Name Date Entry Date Standard Description CPT-000 Give Zostavax 14:09:06 CDT CPT-84654 Administration single or combination vaccine inc oral 15 :19:04 CDT CPT-86954 Zoster Vaccine (Zostavax) 15:19:04 CDT CPT-84486 Administration single or combination vaccine inc oral 20 :51:03 CDT CPT-41827 Influenza split virus > age 3 20:51:03 CDT CPT-55734 No Charge Offi Visit 14:52:03 CDT CPT-OV Office Visit 14:57:43 CDT CPT-OV Office Visit 15:22:32 CDT CPT-08356 Administration single or combination vaccine inc oral 11 :33:15 CDT CPT-99745 Influenza split virus > age 3 11:33:15 CDT
--- OUTSIDE RECORDS SUMMARY | 2018-04-25 20:00 | XMS REPORT | Clinical Summary ---
Author Author Admin, SACHI Organization [facility] Address Unknown Phone Allergies, [...] 6 hours as needed for pain HYDROCODONE-ACETAMINOPHEN 78947613682 Active Tu Landeros MD Active METFORMIN HCL 500 MG TB24 1.5 po BID METFORMIN HCL 01437976698 Active Tu Landeros MD Active GABAPENTIN 100 MG CAPS 3 po tid GABAPENTIN 03758201031 Active Tu Landeros MD Active CIPRO 500 MG TAB 1 tablet by mouth twice daily CIPROFLOXACIN HCL 35430836574 No Longer Active Tu Landeros MD Active VENLAFAXINE HCL 75 MG TABS 1 po BID VENLAFAXINE HCL 76499273945 Active Tu Landeros MD Active VENLAFAXINE HCL 37.5 MG TABS 1 po BID VENLAFAXINE HCL 02316342930 No Longer Active Suze Corey RMA Active [employer] STOOL SOFTENER 100 MG CAPS 1 tab daily DOCUSATE SODIUM 37573516422 Active Tu Landeros MD Active LAMISIL 250 MG TAB 1 po qd TERBINAFINE HCL 44193296504 No Longer Active Tu Landeros MD Active LORTAB 5 5-500 MG TABS 1/2 to 1 tablet by mouth every 4 hours as needed for pain HYDROCODONE-ACETAMINOPHEN 37019221590 No Longer Active Tu Landeros MD Active FENOFIBRATE 145 MG TABS 1 po qd FENOFIBRATE 88559383558 Active Tu Landeros MD Active ENALAPRIL MALEATE 20 MG TABS 1.5 po qd ENALAPRIL MALEATE 51726941188 Active Tu Landeros MD Active HYDROCODONE-ACETAMINOPHEN 5-500 MG TABS take one po Q 4-6 hours prn HYDROCODONE-ACETAMINOPHEN 17065002984 No Longer Active Tu Landeros MD Active BACTRIM DS 800-160 MG TABS 1 po BID x 7 days SULFAMETHOXAZOLE-TRIMETHOPRIM 30889883185 No Longer Active Tu Landeros MD Active VENLAFAXINE HCL 75 MG TABS 1 po BID VENLAFAXINE HCL 53769249314 No Longer Active Elvira Cervantes MD PhD Active TRUERESULT BLOOD GLUCOSE W/DEVICE KIT use to test blood sugar tid dx: 250.00 BLOOD GLUCOSE MONITORING SUPPL 23224333242 Active Tu Landeros MD Active TRUETEST TEST STRP test blood sugar three times daily dx: 250.00 GLUCOSE BLOOD 15957208852 Active Tu Landeros MD Active ACCU-CHEK FASTCLIX LANCETS MISC Use to check bloodsugar three times daily as needed LANCETS 92908745633 No Longer Active Tu Landeros MD Active ACCU-CHEK KEYONA PLUS STRP Use for testing bloodsugars three times daily as needed GLUCOSE BLOOD 35118839692 No Longer Active Tu Landeros MD Active ACCU-CHEK KEYONA PLUS W/DEVICE KIT Use for testing bloodsugars three times daily as needed BLOOD GLUCOSE MONITORING SUPPL 83199272168 No Longer Active Tu Landeros MD Active SPIRONOLACTONE 25 MG TAB 0.5 tablet by mouth daily SPIRONOLACTONE 28362080811 No Longer Active Tu Landeros MD Active TRAMADOL HCL 50 MG TABS 1 tablets every 6 hours as needed for pain TRAMADOL HCL 95728708063 Active Tu Landeros MD Active ALPRAZOLAM 0.5 MG TABS 1 tab every 6hrs as needed ALPRAZOLAM 33403106639 No Longer Active Tu Landeros MD Active B-12 100 MCG TABS Take one by mouth daily CYANOCOBALAMIN 78148027787 Active Tu Landeros MD Active AUGMENTIN 875-125 MG TAB 1 tab by mouth twice daily with food AMOXICILLIN-POT CLAVULANATE 01369022600 No Longer Active Tu Landeros MD Active PREDNISONE 20 MG TAB 2 tabs daily for 3 days, 1 tab daily for 3 days, 1/2 tab daily for 2 days PREDNISONE 64501390151 No Longer Active Tu Landeros MD Active XANAX 0.5 MG TABS 1 tablet every 6 hrs prn ALPRAZOLAM 39445180466 No Longer Active Tu Landeros MD Active PREDNISONE 20 MG TAB 2 tabs daily for 3 days, 1 tab daily for 3 days, 1/2 tab daily for 2 days PREDNISONE 75558774705 No Longer Active Tu Landeros MD Active TRIAMCINOLONE ACETONIDE 0.1 % OINT Apply to affected areas TID for up to 2 weeks TRIAMCINOLONE ACETONIDE 12751735421 No Longer Active Tu Landeros MD Active LORTAB 5 5-500 MG TABS 1/2 to 1 tablet by mouth every 4 hours as needed for pain HYDROCODONE-ACETAMINOPHEN 68752386535 No Longer Active Tu Landeros MD Active MULTIVITAMINS TABS Take one by mouth daily MULTIPLE VITAMIN 42050595307 No Longer Active Tu Landeros MD Active MELATONIN 5 MG TABS Take one by mouth daily MELATONIN 72334192956 No Longer Active Tu Landeros MD Active SOMA 350 MG TAB 1 po q 6 hours prn spasm CARISOPRODOL 40083686228 No Longer Active Tu Landeros MD Active MECLIZINE HCL 25 MG CHEW TAB 1 four times a day as needed for dizziness 08/05 MECLIZINE HCL 89618408221 No Longer Active Fab Deann Andrew MCCORMACK Active ANGEL BREEZE 2 TEST DISK test tid prn GLUCOSE BLOOD 76557132630 No Longer Active Negra Scott MICHAEL Active DICLOFENAC SODIUM 50 MG TBEC 1 tablet by mouth three times a day as needed DICLOFENAC SODIUM 44255608692 Active Tu Landeros MD Active REGLAN 10 MG TAB 1 po TID PRN [place] METOCLOPRAMIDE HCL 41432147304 No Longer Active Tu Landeros MD Active METFORMIN HCL 500 MG TABS 1 PO BID METFORMIN HCL 88890030622 No Longer Active Tu Landeros MD Active CARVEDILOL 12.5 MG TABS Take 1 by mouth twice a day CARVEDILOL 36309518176 Active Tu Landeros MD Active AMBIEN 10 MG TAB 1 tab by mouth at bedtime as needed for sleep ZOLPIDEM TARTRATE 65034999255 No Longer Active Tu Landeros MD Active FLUOXETINE HCL 40 MG CAPS 1 po q day FLUOXETINE HCL 41125344483 No Longer Active Mayra [place] Active FISH OIL 1000 MG CAPS Take one by mouth daily OMEGA-3 FATTY ACIDS 79416567048 Active Tu Landeros MD Active GLUCOSAMINE 500 MG TABS Take 2 tab po qd GLUCOSAMINE 87851218598 Active Tu Landeros MD Active TRILIPIX 135 MG CPDR 1 po qd CHOLINE FENOFIBRATE 05733292304 No Longer Active Tu Landeros MD Active ASPIRIN 81 MG CHEW TAB 1 tablet by mouth daily ASPIRIN 30885665555 Active Tu Landeros MD Active FUROSEMIDE 40 MG TAB 1 tablet by mouth daily FUROSEMIDE 94959276242 Active Tu Landeros MD Active REQUIP 2 MG TABS Take one tablet at bedtime prn ROPINIROLE HCL 79183143727 Active Tu Landeros MD Active SIMVASTATIN 40 MG TABS Take one by mouth daily SIMVASTATIN 15056051135 Active Tu Landeros MD Active KLOR-CON 10 10 MEQ CR-TABS TAKE 2 TABS DAILY POTASSIUM CHLORIDE 91461277853 Active Tu Landeros MD Active OMEPRAZOLE 20 MG TBEC 1 PO 30 MIN BEFORE 1ST MEAL OMEPRAZOLE 72815049352 Active Tu Landeros MD Active AMBIEN 10 MG TAB 1 tab by mouth at bedtime as needed for sleep AMBIEN 10 MG TAB 222804 ZOLPIDEM TARTRATE Inactive METFORMIN HCL 500 MG TABS 1 PO BID METFORMIN HCL 500 MG TABS 344788 METFORMIN HCL Inactive REGLAN 10 MG TAB 1 po TID PRN Nausea REGLAN 10 MG TAB 615823 METOCLOPRAMIDE HCL Inactive MECLIZINE HCL 25 MG CHEW TAB 1 four times a day as needed for dizziness 08/05 MECLIZINE HCL 25 MG CHEW TAB 410049 MECLIZINE HCL Inactive SOMA 350 MG TAB 1 po q 6 hours prn spasm SOMA 350 MG TAB 989296 CARISOPRODOL Inactive MELATONIN 5 MG TABS Take one by mouth daily MELATONIN 5 MG TABS 062016 MELATONIN Inactive MULTIVITAMINS TABS Take one by mouth daily MULTIVITAMINS TABS MULTIPLE VITAMIN Inactive LORTAB 5 5-500 MG TABS 1/2 to 1 tablet by mouth every 4 hours as needed for pain LORTAB 5 5-500 MG TABS HYDROCODONE- ACETAMINOPHEN Inactive XANAX 0.5 MG TABS 1 tablet every 6 hrs prn XANAX 0.5 MG TABS 630076 ALPRAZOLAM Inactive AUGMENTIN 875-125 MG TAB 1 tab by mouth twice daily with food AUGMENTIN 875-125 MG TAB 228194 AMOXICILLIN-POT CLAVULANATE Inactive ALPRAZOLAM 0.5 MG TABS 1 tab every 6hrs as needed ALPRAZOLAM 0.5 MG TABS 561741 ALPRAZOLAM Inactive SPIRONOLACTONE 25 MG TAB 0.5 tablet by mouth daily SPIRONOLACTONE 25 MG TAB 996660 SPIRONOLACTONE Inactive ACCU-CHEK KEYONA PLUS W/DEVICE KIT Use for testing bloodsugars three times daily as needed ACCU-CHEK KEYONA PLUS W/DEVICE KIT BLOOD GLUCOSE MONITORING SUPPL Inactive ACCU-CHEK KEYONA PLUS STRP Use for testing bloodsugars three times daily as needed ACCU-CHEK KEYONA PLUS STRP GLUCOSE BLOOD Inactive ACCU-CHEK FASTCLIX LANCETS MISC Use to check bloodsugar three times daily as needed ACCU-CHEK FASTCLIX LANCETS MISC 87877701490 LANCETS Inactive VENLAFAXINE HCL 75 MG TABS 1 po BID VENLAFAXINE HCL 75 MG TABS 537396 VENLAFAXINE HCL Inactive HYDROCODONE-ACETAMINOPHEN 5-500 MG TABS take one po Q 4-6 hours prn HYDROCODONE-ACETAMINOPHEN 5-500 MG TABS 581743 HYDROCODONE- ACETAMINOPHEN Inactive LORTAB 5 5-500 MG TABS 1/2 to 1 tablet by mouth every 4 hours as needed for pain LORTAB 5 5-500 MG TABS HYDROCODONE- ACETAMINOPHEN Inactive LAMISIL 250 MG TAB 1 po qd LAMISIL 250 MG TAB 940587 TERBINAFINE HCL Inactive VENLAFAXINE HCL 37.5 MG TABS 1 po BID VENLAFAXINE HCL 37.5 MG TABS 045617 VENLAFAXINE HCL Inactive CIPRO 500 MG TAB 1 tablet by mouth twice daily CIPRO 500 MG TAB 116772 CIPROFLOXACIN HCL Inactive TRIAMCINOLONE ACETONIDE 0.1 % OINT Apply to affected areas TID for up to 2 weeks TRIAMCINOLONE ACETONIDE 0.1 % OINT 3219976 TRIAMCINOLONE ACETONIDE Inactive PREDNISONE 20 MG TAB 2 tabs daily for 3 days, 1 tab daily for 3 days, 1/2 tab daily for 2 days PREDNISONE 20 MG TAB 241024 PREDNISONE Inactive PREDNISONE 20 MG TAB 2 tabs daily for 3 days, 1 tab daily for 3 days, 1/2 tab daily for 2 days PREDNISONE 20 MG TAB 896724 PREDNISONE Inactive BACTRIM DS 800-160 MG TABS 1 po BID x 7 days BACTRIM DS 800-160 MG TABS SULFAMETHOXAZOLE-TRIMETHOPRIM Inactive Immunizations Vaccine Administration Date Value Standard Description Seasonal influenza vaccine, injectable, containing preservative, for > 3 years old (Afluria, FluLaval, Fluzone, Fluvirin, Fluarix, Agriflu(>=18 yo)) Fluzone (>3 yrs.) [[id number]] Influenza, seasonal, injectable influenza immunization (Flu Vax) has been administered 02/22/2012 influenza virus vaccine, unspecified formulation Seasonal influenza vaccine, injectable, containing preservative, for > 3 years old (Afluria, FluLaval, Fluzone, Fluvirin, Fluarix, Agriflu(>=18 yo)) Fluzone (>3 yrs.) [[id number]] Influenza, seasonal, injectable Vital Signs Date Name [...] Panel - Chemistry sodium, serum 139 mmol/L [phone]/11/27 potassium, serum 4.9 mmol/L 3.5-5.2 chloride, serum [...] Panel - Chemistry sodium, serum 139 mmol/L [phone]/11/22 potassium, serum 4.3 mmol/L 3.5-5.2 chloride, serum [...] HGBA1C - Chemistry sodium, serum 144 mmol/L 466-855 8840/04/16 potassium, serum 4.2 mmol/L 3.5-5.2 chloride, serum [...] 0.20 mg/dL 0.00-1.00 cholesterol, serum 133 mg/dL 805-895 0240/04/16 triglyceride, serum, fasting 142 mg/dL 30-200 HDL cholesterol, serum 38 mg/dL 32-96 LDL cholesterol, serum 67 mg/dL 0-130 hemoglobin A1C, blood, as % of total hemoglobin 7.1 % 4.3-6.0 sodium, serum 142 mmol/L 386-553 2639/10/22 potassium, serum 4.9 mmol/L 3.5-5.2 chloride, serum [...] 0.30 mg/dL 0.00-1.00 cholesterol, serum 139 mg/dL 746-710 4045/10/22 triglyceride, serum, fasting 168 mg/dL 30-200 HDL [...] Yes Encounters Code Encounter Date Provider Facility CPT-58098 Level 4 Est. Patient 09:45:25 CDT Tu Landeros MD [facility] CPT-09622 Level 4 Est. Patient 09:05:20 IT PROFESSIONAL Tu Landeros MD [facility] CPT-28894 Level 4 Est. Patient 14:09:06 CDT Tu Landeros MD [facility] CPT-76963 Level 3 Est. Patient 13:36:54 CDT Tu Landeros MD [facility] CPT-66894 Level 3 Est. Patient 08:59:14 CDT Tu Landeros MD [facility] CPT-17570 Level 3 Est. Patient 13:48:35 CDT Fab Morales DO [facility] CPT-96212 Level 4 Est. Patient 10:05:48 CDT Tu Landeros MD [facility] CPT-00849 Level 3 Est. Patient 13:38:42 CDT Marek BANKS [facility] CPT-64129 Level 5 Est. Patient 08:08:39 CDT Jerrica FRANCIS [facility] CPT-04324 Level 4 Est. Patient 14:23:38 CDT Tu Landeros MD [facility] CPT-12198 Level 3 Est. Patient 11:44:04 CDT Tu Landeros MD [facility] CPT-25734 Level 3 Est. Patient 11:03:20 IT PROFESSIONAL Tu Landeros MD [facility] CPT-22096 Level 3 Est. Patient 11:03:14 IT PROFESSIONAL Tu Landeros MD [facility] CPT-26536 Level 3 Est. Patient 12:42:49 CDT Tu Landeros MD [facility] CPT-53495 Level 3 Est. Patient 11:52:06 CDT Tu Landeros MD [facility] CPT-32026 Level 3 Est. Patient 13:58:11 CDT Tu Landeros MD [facility] CPT-81899 Level 3 Est. Patient 17:50:07 CDT Fab Morales DO [facility] CPT-94001 Level 3 Est. Patient 12:06:29 CDT Elvira Cervantes MD PhD [facility] CPT-82503 Level 3 Est. Patient 15:50:32 CDT Tu Landeros MD [facility] CPT-33868 Level 4 Est. Patient 16:08:29 CDT Tu Landeros MD [facility] CPT-53822 Level 3 Est. Patient 16:04:19 CDT Tu Landeros MD [facility] CPT-83423 Level 3 Est. Patient 11:22:30 IT PROFESSIONAL Tu Landeros MD [facility] CPT-76414 Level 4 Est. Patient 16:24:02 IT PROFESSIONAL Tu Landeros MD [facility] CPT-40370 Level 3 Est. Patient 17:21:23 IT PROFESSIONAL Tu Landeros MD [facility] Procedures Code Procedure Name Date Entry Date Standard Description CPT-000 Give Zostavax 14:09:06 CDT CPT-13173 Administration single or combination vaccine inc oral 15 :19:04 CDT CPT-62270 Zoster Vaccine (Zostavax) 15:19:04 CDT CPT-41466 Administration single or combination vaccine inc oral 20 :51:03 CDT CPT-12422 Influenza split virus > age 3 20:51:03 CDT CPT-26772 No Charge Offi Visit 14:52:03 CDT CPT-OV Office Visit 14:57:43 CDT CPT-OV Office Visit 15:22:32 CDT CPT-42352 Administration single or combination vaccine inc oral 11 :33:15 CDT CPT-63027 Influenza split virus > age 3 11:33:15 CDT
--- OUTSIDE RECORDS SUMMARY | 2018-04-25 20:01 | XMS REPORT | Clinical Summary ---
Author Author Admin, SACHI Organization [facility] Address Unknown Phone Allergies, Adverse Reactions, Alerts [...] x 14 days start 09-28-13 CIPROFLOXACIN HCL 48784489559 Active [place] Norma Active ALIGN 4 MG CAPS 1 tid PROBIOTIC PRODUCT 65786282172 Active [place] Active BACTRIM DS 800-160 MG TABS 1 bid x 14 day start 09-28-13 SULFAMETHOXAZOLE-TRIMETHOPRIM 11071108862 Active Gustavo Dix Active GABAPENTIN 300 MG CAPS 1 tid GABAPENTIN 16397029557 Active Gustavo Norma Active SUPER B COMPLEX/VITAMIN C TABS 1 qd B COMPLEX-C 42100355748 Active [place] Active TRILIPIX 135 MG CPDR 1 q hs CHOLINE FENOFIBRATE 15668945243 Active Gustavo Norma Active FENOFIBRATE 145 MG TABS 1 po qd FENOFIBRATE 37032742946 No Longer Active Gustavo [place] Active OMEPRAZOLE 20 MG TBEC 1 PO 30 MIN BEFORE 1ST MEAL OMEPRAZOLE 11029746928 No Longer Active Gustavo [place] Active SIMVASTATIN 40 MG TABS Take one by mouth daily SIMVASTATIN 74510708260 No Longer Active Gustavo [place] Active GABAPENTIN 100 MG CAPS 1 po bid GABAPENTIN 57477887407 Active Gustavo Norma Active CARVEDILOL 12.5 MG TABS Take 1 by mouth 30 min. before first meal CARVEDILOL 52067661475 Active Gustavo [place] Active VENLAFAXINE HCL 37.5 MG TABS 1 bid VENLAFAXINE HCL 99594419053 Active [place] Active VENLAFAXINE HCL 75 MG TABS 1 po BID VENLAFAXINE HCL 72210565455 No Longer Active Gustavo Norma Active HYDROCODONE-ACETAMINOPHEN 5-325 MG TABS 1 tab by mouth every 6 hours as needed for pain HYDROCODONE-ACETAMINOPHEN 58379254751 Active Tu Landeros MD Active METFORMIN HCL 500 MG TB24 1.5 po BID METFORMIN HCL 88720502712 Active Tu Landeros MD Active CIPRO 500 MG TAB 1 tablet by mouth twice daily CIPROFLOXACIN HCL 70339402283 No Longer Active Tu Landeros MD Active VENLAFAXINE HCL 37.5 MG TABS 1 po BID VENLAFAXINE HCL 57024127334 No Longer Active Suze Corey RMA Active CVS STOOL SOFTENER 100 MG CAPS 1 tab daily DOCUSATE SODIUM 60127763194 Active Tu Landeros MD Active LAMISIL 250 MG TAB 1 po qd TERBINAFINE HCL 44151702691 No Longer Active Tu Landeros MD Active LORTAB 5 5-500 MG TABS 1/2 to 1 tablet by mouth every 4 hours as needed for pain HYDROCODONE-ACETAMINOPHEN 14433568651 No Longer Active Tu Landeros MD Active ENALAPRIL MALEATE 20 MG TABS 1.5 po qd ENALAPRIL MALEATE 21920059670 Active Tu Landeros MD Active HYDROCODONE-ACETAMINOPHEN 5-500 MG TABS take one po Q 4-6 hours prn HYDROCODONE-ACETAMINOPHEN 78887895611 No Longer Active Tu Landeros MD Active BACTRIM DS 800-160 MG TABS 1 po BID x 7 days SULFAMETHOXAZOLE-TRIMETHOPRIM 21063231788 No Longer Active Tu Landeros MD Active VENLAFAXINE HCL 75 MG TABS 1 po BID VENLAFAXINE HCL 28643595221 No Longer Active Elvira Cervantes MD PhD Active TRUERESULT BLOOD GLUCOSE W/DEVICE KIT use to test blood sugar tid dx: 250.00 BLOOD GLUCOSE MONITORING SUPPL 37356784219 Active Tu Landeros MD Active TRUETEST TEST STRP test blood sugar three times daily dx: 250.00 GLUCOSE BLOOD 07587496841 Active Tu Landeros MD Active ACCU-CHEK FASTCLIX LANCETS MISC Use to check bloodsugar three times daily as needed LANCETS 66220239729 No Longer Active Tu Landeros MD Active ACCU-CHEK KEYONA PLUS STRP Use for testing bloodsugars three times daily as needed GLUCOSE BLOOD 62454504784 No Longer Active Tu Landeros MD Active ACCU-CHEK KEYONA PLUS W/DEVICE KIT Use for testing bloodsugars three times daily as needed BLOOD GLUCOSE MONITORING SUPPL 01039796758 No Longer Active Tu Landeros MD Active SPIRONOLACTONE 25 MG TAB 0.5 tablet by mouth daily SPIRONOLACTONE 04603383736 No Longer Active Tu Landeros MD Active TRAMADOL HCL 50 MG TABS 1 tablets every 6 hours as needed for pain TRAMADOL HCL 34915994192 Active Tu Landeros MD Active ALPRAZOLAM 0.5 MG TABS 1 tab every 6hrs as needed ALPRAZOLAM 37251632979 No Longer Active Tu Landeros MD Active B-12 100 MCG TABS Take one by mouth daily CYANOCOBALAMIN 23319191132 Active Tu Landeros MD Active AUGMENTIN 875-125 MG TAB 1 tab by mouth twice daily with food AMOXICILLIN-POT CLAVULANATE 19253301576 No Longer Active Tu Landeros MD Active PREDNISONE 20 MG TAB 2 tabs daily for 3 days, 1 tab daily for 3 days, 1/2 tab daily for 2 days PREDNISONE 37846780308 No Longer Active Tu Landeros MD Active XANAX 0.5 MG TABS 1 tablet every 6 hrs prn ALPRAZOLAM 82537938676 No Longer Active Tu Landeros MD Active PREDNISONE 20 MG TAB 2 tabs daily for 3 days, 1 tab daily for 3 days, 1/2 tab daily for 2 days PREDNISONE 83194317329 No Longer Active Tu Landeros MD Active TRIAMCINOLONE ACETONIDE 0.1 % OINT Apply to affected areas TID for up to 2 weeks TRIAMCINOLONE ACETONIDE 44125142360 No Longer Active Tu Landeros MD Active LORTAB 5 5-500 MG TABS 1/2 to 1 tablet by mouth every 4 hours as needed for pain HYDROCODONE-ACETAMINOPHEN 18417904595 No Longer Active Tu Landeros MD Active MULTIVITAMINS TABS Take one by mouth daily MULTIPLE VITAMIN 24341099798 No Longer Active Tu Landeros MD Active MELATONIN 5 MG TABS Take one by mouth daily MELATONIN 83901375808 No Longer Active Tu Landeros MD Active SOMA 350 MG TAB 1 po q 6 hours prn spasm CARISOPRODOL 41767402818 No Longer Active Tu Landeros MD Active MECLIZINE HCL 25 MG CHEW TAB 1 four times a day as needed for dizziness 08/05 MECLIZINE HCL 86984607428 No Longer Active Fab Morales DO Active ANGEL BREEZE 2 TEST DISK test tid prn GLUCOSE BLOOD 55498243122 No Longer Active Negra Scott RN Active DICLOFENAC SODIUM 50 MG TBEC 1 tablet by mouth three times a day as needed DICLOFENAC SODIUM 52385337399 Active Tu Landeros MD Active REGLAN 10 MG TAB 1 po TID PRN [place] METOCLOPRAMIDE HCL 56642815117 No Longer Active Tu Landeros MD Active METFORMIN HCL 500 MG TABS 1 PO BID METFORMIN HCL 48550311990 No Longer Active Tu Landeros MD Active AMBIEN 10 MG TAB 1 tab by mouth at bedtime as needed for sleep ZOLPIDEM TARTRATE 47635661476 No Longer Active Tu Landeros MD Active FLUOXETINE HCL 40 MG CAPS 1 po q day FLUOXETINE HCL 90230275055 No Longer Active Mayra [place] Active FISH OIL 1000 MG CAPS Take one by mouth daily OMEGA-3 FATTY ACIDS 59433345947 Active Tu Landeros MD Active GLUCOSAMINE 500 MG TABS Take 2 tab po qd GLUCOSAMINE 76700119726 Active Tu Landeros MD Active TRILIPIX 135 MG CPDR 1 po qd CHOLINE FENOFIBRATE 19280149759 No Longer Active Tu Landeros MD Active ASPIRIN 81 MG CHEW TAB 1 tablet by mouth daily ASPIRIN 48364875447 Active Tu Landeros MD Active FUROSEMIDE 40 MG TAB 1 tablet by mouth daily FUROSEMIDE 25659914467 Active Tu Landeros MD Active REQUIP 2 MG TABS Take one tablet at bedtime prn ROPINIROLE HCL 38955376286 Active Tu Landeros MD Active KLOR-CON 10 10 MEQ CR-TABS TAKE 2 TABS DAILY POTASSIUM CHLORIDE 10908919746 Active Tu Landeros MD Active AMBIEN 10 MG TAB 1 tab by mouth at bedtime as needed for sleep AMBIEN 10 MG TAB 561737 ZOLPIDEM TARTRATE Inactive METFORMIN HCL 500 MG TABS 1 PO BID METFORMIN HCL 500 MG TABS 183105 METFORMIN HCL Inactive REGLAN 10 MG TAB 1 po TID PRN Nausea REGLAN 10 MG TAB 554355 METOCLOPRAMIDE HCL Inactive MECLIZINE HCL 25 MG CHEW TAB 1 four times a day as needed for dizziness 08/05 MECLIZINE HCL 25 MG CHEW TAB 773169 MECLIZINE HCL Inactive SOMA 350 MG TAB 1 po q 6 hours prn spasm SOMA 350 MG TAB 600720 CARISOPRODOL Inactive MELATONIN 5 MG TABS Take one by mouth daily MELATONIN 5 MG TABS 960844 MELATONIN Inactive MULTIVITAMINS TABS Take one by mouth daily MULTIVITAMINS TABS MULTIPLE VITAMIN Inactive LORTAB 5 5-500 MG TABS 1/2 to 1 tablet by mouth every 4 hours as needed for pain LORTAB 5 5-500 MG TABS HYDROCODONE- ACETAMINOPHEN Inactive XANAX 0.5 MG TABS 1 tablet every 6 hrs prn XANAX 0.5 MG TABS 966534 ALPRAZOLAM Inactive AUGMENTIN 875-125 MG TAB 1 tab by mouth twice daily with food AUGMENTIN 875-125 MG TAB 220684 AMOXICILLIN-POT CLAVULANATE Inactive ALPRAZOLAM 0.5 MG TABS 1 tab every 6hrs as needed ALPRAZOLAM 0.5 MG TABS 959524 ALPRAZOLAM Inactive SPIRONOLACTONE 25 MG TAB 0.5 tablet by mouth daily SPIRONOLACTONE 25 MG TAB 949045 SPIRONOLACTONE Inactive ACCU-CHEK KEYONA PLUS W/DEVICE KIT Use for testing bloodsugars three times daily as needed ACCU-CHEK KEYONA PLUS W/DEVICE KIT BLOOD GLUCOSE MONITORING SUPPL Inactive ACCU-CHEK KEYONA PLUS STRP Use for testing bloodsugars three times daily as needed ACCU-CHEK KEYONA PLUS STRP GLUCOSE BLOOD Inactive ACCU-CHEK FASTCLIX LANCETS MISC Use to check bloodsugar three times daily as needed ACCU-CHEK FASTCLIX LANCETS MISC 02395862987 LANCETS Inactive VENLAFAXINE HCL 75 MG TABS 1 po BID VENLAFAXINE HCL 75 MG TABS 688965 VENLAFAXINE HCL Inactive HYDROCODONE-ACETAMINOPHEN 5-500 MG TABS take one po Q 4-6 hours prn HYDROCODONE-ACETAMINOPHEN 5-500 MG TABS 547954 HYDROCODONE- ACETAMINOPHEN Inactive LORTAB 5 5-500 MG TABS 1/2 to 1 tablet by mouth every 4 hours as needed for pain LORTAB 5 5-500 MG TABS HYDROCODONE- ACETAMINOPHEN Inactive LAMISIL 250 MG TAB 1 po qd LAMISIL 250 MG TAB 299711 TERBINAFINE HCL Inactive VENLAFAXINE HCL 37.5 MG TABS 1 po BID VENLAFAXINE HCL 37.5 MG TABS 342810 VENLAFAXINE HCL Inactive CIPRO 500 MG TAB 1 tablet by mouth twice daily CIPRO 500 MG TAB 498172 CIPROFLOXACIN HCL Inactive VENLAFAXINE HCL 75 MG TABS 1 po BID VENLAFAXINE HCL 75 MG TABS 499265 VENLAFAXINE HCL Inactive SIMVASTATIN 40 MG TABS Take one by mouth daily SIMVASTATIN 40 MG TABS 715223 SIMVASTATIN Inactive OMEPRAZOLE 20 MG TBEC 1 PO 30 MIN BEFORE 1ST MEAL OMEPRAZOLE 20 MG TBEC 620207 OMEPRAZOLE Inactive FENOFIBRATE 145 MG TABS 1 po qd FENOFIBRATE 145 MG TABS 247243 FENOFIBRATE Inactive TRIAMCINOLONE ACETONIDE 0.1 % OINT Apply to affected areas TID for up to 2 weeks TRIAMCINOLONE ACETONIDE 0.1 % OINT 5876471 TRIAMCINOLONE ACETONIDE Inactive PREDNISONE 20 MG TAB 2 tabs daily for 3 days, 1 tab daily for 3 days, 1/2 tab daily for 2 days PREDNISONE 20 MG TAB 397811 PREDNISONE Inactive PREDNISONE 20 MG TAB 2 tabs daily for 3 days, 1 tab daily for 3 days, 1/2 tab daily for 2 days PREDNISONE 20 MG TAB 215674 PREDNISONE Inactive BACTRIM DS 800-160 MG TABS 1 po BID x 7 days BACTRIM DS 800-160 MG TABS SULFAMETHOXAZOLE-TRIMETHOPRIM Inactive Immunizations Vaccine Administration Date Value Standard Description Seasonal influenza vaccine, injectable, containing preservative, for > 3 years old (Afluria, FluLaval, Fluzone, Fluvirin, Fluarix, Agriflu(>=18 yo)) Fluzone (>3 yrs.) [[id number]] Influenza, seasonal, injectable influenza immunization (Flu Vax) has been administered 02/22/2012 influenza virus vaccine, unspecified formulation Seasonal influenza vaccine, injectable, containing preservative, for > 3 years old (Afluria, FluLaval, Fluzone, Fluvirin, Fluarix, Agriflu(>=18 yo)) Fluzone (>3 yrs.) [[id number]] Influenza, seasonal, injectable Vital Signs Date Name [...] temperature weight E&M 322 [lb_av] Weight Measured Diagnostic Results Date Name Value Unit Range Description Lab Report: Basic Metabolic Panel - Chemistry sodium, serum 139 mmol/L 705-730 9848/11/27 potassium, serum 4.9 mmol/L 3.5-5.2 chloride, serum [...] Panel - Chemistry sodium, serum 139 mmol/L 768-020 4110/11/22 potassium, serum 4.3 mmol/L 3.5-5.2 chloride, serum [...] HGBA1C - Chemistry sodium, serum 142 mmol/L 861-945 8491/10/22 potassium, serum 4.9 mmol/L 3.5-5.2 chloride, serum [...] 0.30 mg/dL 0.00-1.00 cholesterol, serum 139 mg/dL 663-501 8540/10/22 triglyceride, serum, fasting 168 mg/dL 30-200 HDL cholesterol, serum 40 mg/dL 32-96 LDL cholesterol, serum 65 mg/dL 0-130 hemoglobin A1C, blood, as % of total hemoglobin 6.2 % 4.3-6.0 sodium, serum 144 mmol/L 202-538 6067/04/16 potassium, serum 4.2 mmol/L 3.5-5.2 chloride, serum [...] 0.20 mg/dL 0.00-1.00 cholesterol, serum 133 mg/dL 653-912 4098/04/16 triglyceride, serum, fasting 142 mg/dL 30-200 HDL [...] mg/dL Encounters Code Encounter Date Provider Facility CPT-84973 Level 4 Est. Patient 09:45:25 CDT Tu Landeros MD [facility] CPT-17823 Level 4 Est. Patient 09:05:20 CLINICAL PHARMACY TECHNICIAN Tu Landeros MD [facility] CPT-48379 Level 4 Est. Patient 14:09:06 CDT Tu Landeros MD [facility] CPT-15924 Level 3 Est. Patient 13:36:54 CDT Tu Landeros MD [facility] CPT-84993 Level 3 Est. Patient 08:59:14 CDT Tu Lnaderos MD [facility] CPT-71515 Level 3 Est. Patient 13:48:35 CDT Fab Morales DO [facility] CPT-47944 Level 4 Est. Patient 10:05:48 CDT Tu Landeros MD [facility] CPT-81221 Level 3 Est. Patient 13:38:42 CDT Marek BANKS [facility] CPT-78952 Level 5 Est. Patient 08:08:39 CDT Piyushrichajanelle Dawsontay FRANCIS [facility] CPT-94610 Level 4 Est. Patient 14:23:38 CDT Tu Landeros MD [facility] CPT-06593 Level 3 Est. Patient 11:44:04 CDT Tu Landeros MD [facility] CPT-68982 Level 3 Est. Patient 11:03:20 CLINICAL PHARMACY TECHNICIAN Tu Landeros MD [facility] CPT-22750 Level 3 Est. Patient 11:03:14 CLINICAL PHARMACY TECHNICIAN Tu Landeros MD [facility] CPT-51879 Level 3 Est. Patient 12:42:49 CDT Tu Landeros MD [facility] CPT-79114 Level 3 Est. Patient 11:52:06 CDT Tu Landeros MD [facility] CPT-27330 Level 3 Est. Patient 13:58:11 CDT Tu Landeros MD [facility] CPT-60246 Level 3 Est. Patient 17:50:07 CDT Fab Morales DO [facility] CPT-44897 Level 3 Est. Patient 12:06:29 CDT Elvira Cervantes MD PhD [facility] CPT-74538 Level 3 Est. Patient 15:50:32 CDT Tu Landeros MD [facility] CPT-01229 Level 4 Est. Patient 16:08:29 CDT Tu Landeros MD [facility] CPT-50036 Level 3 Est. Patient 16:04:19 CDT Tu Landeros MD [facility] CPT-09611 Level 3 Est. Patient 11:22:30 CLINICAL PHARMACY TECHNICIAN Tu Landeros MD [facility] CPT-16867 Level 4 Est. Patient 16:24:02 CLINICAL PHARMACY TECHNICIAN Tu Landeros MD [facility] CPT-37451 Level 3 Est. Patient 17:21:23 CLINICAL PHARMACY TECHNICIAN Tu Landeros MD [facility] Procedures Code Procedure Name Date Entry Date Standard Description CPT-OV Office Visit 15:45:11 CDT CPT-000 Give Zostavax 14:09:06 CDT CPT-16624 Administration single or combination vaccine inc oral 15 :19:04 CDT CPT-46946 Zoster Vaccine (Zostavax) 15:19:04 CDT CPT-51115 Administration single or combination vaccine inc oral 20 :51:03 CDT CPT-10824 Influenza split virus > age 3 20:51:03 CDT CPT-68641 No Charge Offi Visit 14:52:03 CDT CPT-OV Office Visit 14:57:43 CDT CPT-OV Office Visit 15:22:32 CDT CPT-61452 Administration single or combination vaccine inc oral 11 :33:15 CDT CPT-69206 Influenza split virus > age 3 11:33:15 CDT
--- OUTSIDE RECORDS SUMMARY | 2018-04-25 20:02 | XMS REPORT | Clinical Summary ---
Author Author Admin, SACHI Organization [facility] Address Unknown Phone Allergies, Adverse Reactions, [...] Spasm of muscle SCIATICA 724.3 Resolved Tu Ladneros MD Sciatica SHOULDER PAIN, LEFT 719.41 Resolved [...] anterior , complicated POSTMENOPAUSAL BLEEDING ICD-627.1 Inactive Elvria Cervantes MD PhD HEALTH SCREENING ICD-V70.0 Inactive [...] x 14 days start 09-28-13 CIPROFLOXACIN HCL 60984912944 Active [place] [employer] [place] Active ALIGN 4 MG CAPS 1 tid PROBIOTIC PRODUCT 52268142339 Active [employer] [place] Active BACTRIM DS 800-160 MG TABS 1 bid x 14 day start 09-28-13 SULFAMETHOXAZOLE-TRIMETHOPRIM 10574327266 Active Gustavo [place] Active GABAPENTIN 300 MG CAPS 1 tid GABAPENTIN 21578499588 Active Gustavo Norma Active SUPER B COMPLEX/VITAMIN C TABS 1 qd B COMPLEX-C 64740380771 Active [employer] [place] Active TRILIPIX 135 MG CPDR 1 q hs CHOLINE FENOFIBRATE 97079479887 Active Gustavo Norma Active FENOFIBRATE 145 MG TABS 1 po qd FENOFIBRATE 53929964126 No Longer Active Gustavo [place] Active OMEPRAZOLE 20 MG TBEC 1 PO 30 MIN BEFORE 1ST MEAL OMEPRAZOLE 17449938495 No Longer Active Gustavo [place] Active SIMVASTATIN 40 MG TABS Take one by mouth daily SIMVASTATIN 36275276655 No Longer Active Gustavo [place] Active GABAPENTIN 100 MG CAPS 1 po bid GABAPENTIN 45349304441 Active Gustavo Norma Active CARVEDILOL 12.5 MG TABS Take 1 by mouth 30 min. before first meal CARVEDILOL 08466271949 Active Gustavo [place] Active VENLAFAXINE HCL 37.5 MG TABS 1 bid VENLAFAXINE HCL 94464158443 Active [place] Active VENLAFAXINE HCL 75 MG TABS 1 po BID VENLAFAXINE HCL 49492795860 No Longer Active Gustavo Norma Active HYDROCODONE-ACETAMINOPHEN 5-325 MG TABS 1 tab by mouth every 6 hours as needed for pain HYDROCODONE-ACETAMINOPHEN 86678866726 Active Tu Landeros MD Active METFORMIN HCL 500 MG TB24 1.5 po BID METFORMIN HCL 53393605336 Active Tu Landeros MD Active CIPRO 500 MG TAB 1 tablet by mouth twice daily CIPROFLOXACIN HCL 39283645557 No Longer Active Tu Landeros MD Active VENLAFAXINE HCL 37.5 MG TABS 1 po BID VENLAFAXINE HCL 25746742460 No Longer Active Suze Corey RMA Active [employer] STOOL SOFTENER 100 MG CAPS 1 tab daily DOCUSATE SODIUM 09081518845 Active Tu Landeros MD Active LAMISIL 250 MG TAB 1 po qd TERBINAFINE HCL 01552240915 No Longer Active Tu Landeros MD Active LORTAB 5 5-500 MG TABS 1/2 to 1 tablet by mouth every 4 hours as needed for pain HYDROCODONE-ACETAMINOPHEN 66491501846 No Longer Active Tu Landeros MD Active ENALAPRIL MALEATE 20 MG TABS 1.5 po qd ENALAPRIL MALEATE 24588419317 Active Tu Landeros MD Active HYDROCODONE-ACETAMINOPHEN 5-500 MG TABS take one po Q 4-6 hours prn HYDROCODONE-ACETAMINOPHEN 12011449546 No Longer Active Tu Landeros MD Active BACTRIM DS 800-160 MG TABS 1 po BID x 7 days SULFAMETHOXAZOLE-TRIMETHOPRIM 08486307409 No Longer Active Tu Landeros MD Active VENLAFAXINE HCL 75 MG TABS 1 po BID VENLAFAXINE HCL 20158250989 No Longer Active Elvira Cervantes MD PhD Active TRUERESULT BLOOD GLUCOSE W/DEVICE KIT use to test blood sugar tid dx: 250.00 BLOOD GLUCOSE MONITORING SUPPL 33620361209 Active Tu Landeros MD Active TRUETEST TEST STRP test blood sugar three times daily dx: 250.00 GLUCOSE BLOOD 15720886504 Active Tu Landeros MD Active ACCU-CHEK FASTCLIX LANCETS MISC Use to check bloodsugar three times daily as needed LANCETS 81973766966 No Longer Active Tu Landeros MD Active ACCU-CHEK KEYONA PLUS STRP Use for testing bloodsugars three times daily as needed GLUCOSE BLOOD 17652262638 No Longer Active Tu Landeros MD Active ACCU-CHEK KEYONA PLUS W/DEVICE KIT Use for testing bloodsugars three times daily as needed BLOOD GLUCOSE MONITORING SUPPL 31683494231 No Longer Active Tu Landeros MD Active SPIRONOLACTONE 25 MG TAB 0.5 tablet by mouth daily SPIRONOLACTONE 74553849934 No Longer Active Tu Landeros MD Active TRAMADOL HCL 50 MG TABS 1 tablets every 6 hours as needed for pain TRAMADOL HCL 08044606748 Active Tu Landeros MD Active ALPRAZOLAM 0.5 MG TABS 1 tab every 6hrs as needed ALPRAZOLAM 97220549846 No Longer Active Tu Landeros MD Active B-12 100 MCG TABS Take one by mouth daily CYANOCOBALAMIN 79688023393 Active Tu Landeros MD Active AUGMENTIN 875-125 MG TAB 1 tab by mouth twice daily with food AMOXICILLIN-POT CLAVULANATE 62012711028 No Longer Active Tu Landeros MD Active PREDNISONE 20 MG TAB 2 tabs daily for 3 days, 1 tab daily for 3 days, 1/2 tab daily for 2 days PREDNISONE 05739145313 No Longer Active Tu Landeros MD Active XANAX 0.5 MG TABS 1 tablet every 6 hrs prn ALPRAZOLAM 59609543504 No Longer Active Tu Landeros MD Active PREDNISONE 20 MG TAB 2 tabs daily for 3 days, 1 tab daily for 3 days, 1/2 tab daily for 2 days PREDNISONE 12284574741 No Longer Active Tu Landeros MD Active TRIAMCINOLONE ACETONIDE 0.1 % OINT Apply to affected areas TID for up to 2 weeks TRIAMCINOLONE ACETONIDE 99939905304 No Longer Active Tu Landeros MD Active LORTAB 5 5-500 MG TABS 1/2 to 1 tablet by mouth every 4 hours as needed for pain HYDROCODONE-ACETAMINOPHEN 36160775530 No Longer Active Tu Landeros MD Active MULTIVITAMINS TABS Take one by mouth daily MULTIPLE VITAMIN 20392000310 No Longer Active Tu Landeros MD Active MELATONIN 5 MG TABS Take one by mouth daily MELATONIN 56178459798 No Longer Active Tu Landeros MD Active SOMA 350 MG TAB 1 po q 6 hours prn spasm CARISOPRODOL 03929245206 No Longer Active Tu Landeros MD Active MECLIZINE HCL 25 MG CHEW TAB 1 four times a day as needed for dizziness 08/05 MECLIZINE HCL 90457913627 No Longer Active Fab Morales DO Active ANGEL BREEZE 2 TEST DISK test tid prn GLUCOSE BLOOD 26991589891 No Longer Active Negra Scott RN Active DICLOFENAC SODIUM 50 MG TBEC 1 tablet by mouth three times a day as needed DICLOFENAC SODIUM 25587017302 Active Tu Landeros MD Active REGLAN 10 MG TAB 1 po TID PRN Nausea METOCLOPRAMIDE HCL 72620058074 No Longer Active Tu Landeros MD Active METFORMIN HCL 500 MG TABS 1 PO BID METFORMIN HCL 60908276166 No Longer Active Tu Landeros MD Active AMBIEN 10 MG TAB 1 tab by mouth at bedtime as needed for sleep ZOLPIDEM TARTRATE 41140063116 No Longer Active Tu Landeros MD Active FLUOXETINE HCL 40 MG CAPS 1 po q day FLUOXETINE HCL 10305716691 No Longer Active Mayra Ringgold Active FISH OIL 1000 MG CAPS Take one by mouth daily OMEGA-3 FATTY ACIDS 16713992537 Active Tu Landeros MD Active GLUCOSAMINE 500 MG TABS Take 2 tab po qd GLUCOSAMINE 79391058478 Active Tu Landeros MD Active TRILIPIX 135 MG CPDR 1 po qd CHOLINE FENOFIBRATE 28328610786 No Longer Active Tu Landeros MD Active ASPIRIN 81 MG CHEW TAB 1 tablet by mouth daily ASPIRIN 65130762738 Active Tu Landeros MD Active FUROSEMIDE 40 MG TAB 1 tablet by mouth daily FUROSEMIDE 96312261030 Active Tu Landeros MD Active REQUIP 2 MG TABS Take one tablet at bedtime prn ROPINIROLE HCL 14873852579 Active Tu Landeros MD Active KLOR-CON 10 10 MEQ CR-TABS TAKE 2 TABS DAILY POTASSIUM CHLORIDE 16981536761 Active Tu Landeros MD Active ALPRAZOLAM 0.5 MG TABS 1 tab every 6hrs as needed ALPRAZOLAM 0.5 MG TABS 935200 ALPRAZOLAM Inactive AMBIEN 10 MG TAB 1 tab by mouth at bedtime as needed for sleep AMBIEN 10 MG TAB 414337 ZOLPIDEM TARTRATE Inactive BACTRIM DS 800-160 MG TABS 1 po BID x 7 days BACTRIM DS 800-160 MG TABS SULFAMETHOXAZOLE-TRIMETHOPRIM Inactive CIPRO 500 MG TAB 1 tablet by mouth twice daily CIPRO 500 MG TAB 120245 CIPROFLOXACIN HCL Inactive MECLIZINE HCL 25 MG CHEW TAB 1 four times a day as needed for dizziness 08/05 MECLIZINE HCL 25 MG CHEW TAB 716329 MECLIZINE HCL Inactive MULTIVITAMINS TABS Take one by mouth daily MULTIVITAMINS TABS MULTIPLE VITAMIN Inactive PREDNISONE 20 MG TAB 2 tabs daily for 3 days, 1 tab daily for 3 days, 1/2 tab daily for 2 days PREDNISONE 20 MG TAB 263089 PREDNISONE Inactive PREDNISONE 20 MG TAB 2 tabs daily for 3 days, 1 tab daily for 3 days, 1/2 tab daily for 2 days PREDNISONE 20 MG TAB 988059 PREDNISONE Inactive REGLAN 10 MG TAB 1 po TID PRN Nausea REGLAN 10 MG TAB 660298 METOCLOPRAMIDE HCL Inactive SOMA 350 MG TAB 1 po q 6 hours prn spasm SOMA 350 MG TAB 310163 CARISOPRODOL Inactive SPIRONOLACTONE 25 MG TAB 0.5 tablet by mouth daily SPIRONOLACTONE 25 MG TAB 943406 SPIRONOLACTONE Inactive TRIAMCINOLONE ACETONIDE 0.1 % OINT Apply to affected areas TID for up to 2 weeks TRIAMCINOLONE ACETONIDE 0.1 % OINT 8796309 TRIAMCINOLONE ACETONIDE Inactive XANAX 0.5 MG TABS 1 tablet every 6 hrs prn XANAX 0.5 MG TABS 798607 ALPRAZOLAM Inactive METFORMIN HCL 500 MG TABS 1 PO BID METFORMIN HCL 500 MG TABS 133594 METFORMIN HCL Inactive SIMVASTATIN 40 MG TABS Take one by mouth daily SIMVASTATIN 40 MG TABS 320384 SIMVASTATIN Inactive VENLAFAXINE HCL 75 MG TABS 1 po BID VENLAFAXINE HCL 75 MG TABS 637268 VENLAFAXINE HCL Inactive VENLAFAXINE HCL 75 MG TABS 1 po BID VENLAFAXINE HCL 75 MG TABS 451924 VENLAFAXINE HCL Inactive VENLAFAXINE HCL 37.5 MG TABS 1 po BID VENLAFAXINE HCL 37.5 MG TABS 756043 VENLAFAXINE HCL Inactive LORTAB 5 5-500 MG TABS 1/2 to 1 tablet by mouth every 4 hours as needed for pain LORTAB 5 5-500 MG TABS HYDROCODONE- ACETAMINOPHEN Inactive LORTAB 5 5-500 MG TABS 1/2 to 1 tablet by mouth every 4 hours as needed for pain LORTAB 5 5-500 MG TABS HYDROCODONE- ACETAMINOPHEN Inactive HYDROCODONE-ACETAMINOPHEN 5-500 MG TABS take one po Q 4-6 hours prn HYDROCODONE-ACETAMINOPHEN 5-500 MG TABS 450559 HYDROCODONE- ACETAMINOPHEN Inactive AUGMENTIN 875-125 MG TAB 1 tab by mouth twice daily with food AUGMENTIN 875-125 MG TAB 733099 AMOXICILLIN-POT CLAVULANATE Inactive LAMISIL 250 MG TAB 1 po qd LAMISIL 250 MG TAB 476809 TERBINAFINE HCL Inactive MELATONIN 5 MG TABS Take one by mouth daily MELATONIN 5 MG TABS 113139 MELATONIN Inactive FENOFIBRATE 145 MG TABS 1 po qd FENOFIBRATE 145 MG TABS 124061 FENOFIBRATE Inactive OMEPRAZOLE 20 MG TBEC 1 PO 30 MIN BEFORE 1ST MEAL OMEPRAZOLE 20 MG TBEC 341757 OMEPRAZOLE Inactive ACCU-CHEK FASTCLIX LANCETS MISC Use to check bloodsugar three times daily as needed ACCU-CHEK FASTCLIX LANCETS MISC 22696836343 LANCETS Inactive ACCU-CHEK KEYONA PLUS STRP Use for testing bloodsugars three times daily as needed ACCU-CHEK KEYONA PLUS STRP GLUCOSE BLOOD Inactive ACCU-CHEK KEYONA PLUS W/DEVICE KIT Use for testing bloodsugars three times daily as needed ACCU-CHEK KEYONA PLUS W/DEVICE KIT BLOOD GLUCOSE MONITORING SUPPL Inactive Immunizations Vaccine Administration Date Value Standard Description Seasonal influenza vaccine, injectable, containing preservative, for > 3 years old (Afluria, FluLaval, Fluzone, Fluvirin, Fluarix, Agriflu(>=18 yo)) Fluzone (>3 yrs.) [[id number]] Influenza, seasonal, injectable influenza immunization (Flu Vax) has been administered 02/22/2012 influenza virus vaccine, unspecified formulation Seasonal influenza vaccine, injectable, containing preservative, for > 3 years old (Afluria, FluLaval, Fluzone, Fluvirin, Fluarix, Agriflu(>=18 yo)) Fluzone (>3 yrs.) [[id number]] Influenza, seasonal, injectable Vital Signs Date Name [...] Panel - Chemistry sodium, serum 139 mmol/L 481-426 5372/11/27 potassium, serum 4.9 mmol/L 3.5-5.2 chloride, serum [...] Panel - Chemistry sodium, serum 139 mmol/L 609-579 1021/11/22 potassium, serum 4.3 mmol/L 3.5-5.2 chloride, serum [...] HGBA1C - Chemistry sodium, serum 144 mmol/L 263-750 8234/04/16 potassium, serum 4.2 mmol/L 3.5-5.2 chloride, serum [...] 0.20 mg/dL 0.00-1.00 cholesterol, serum 133 mg/dL 156-666 0802/04/16 triglyceride, serum, fasting 142 mg/dL 30-200 HDL cholesterol, serum 38 mg/dL 32-96 LDL cholesterol, serum 67 mg/dL 0-130 hemoglobin A1C, blood, as % of total hemoglobin 7.1 % 4.3-6.0 sodium, serum 142 mmol/L 310-280 8112/10/22 potassium, serum 4.9 mmol/L 3.5-5.2 chloride, serum [...] 0.30 mg/dL 0.00-1.00 cholesterol, serum 139 mg/dL 471-123 7826/10/22 triglyceride, serum, fasting 168 mg/dL 30-200 HDL [...] mg/dL Encounters Code Encounter Date Provider Facility CPT-09148 Level 4 Est. Patient 09:45:25 CDT Tu Landeros MD [facility] CPT-10565 Level 4 Est. Patient 09:05:20 SENIOR CLIENT ADVISOR Tu Landeros MD [facility] CPT-24168 Level 4 Est. Patient 14:09:06 CDT Tu Landeros MD [facility] CPT-84775 Level 3 Est. Patient 13:36:54 CDT Tu Landeros MD [facility] CPT-19374 Level 3 Est. Patient 08:59:14 CDT Tu Landeros MD [facility] CPT-34632 Level 3 Est. Patient 13:48:35 CDT Fab Morales DO [facility] CPT-32214 Level 4 Est. Patient 10:05:48 CDT Tu Landeros MD [facility] CPT-08219 Level 3 Est. Patient 13:38:[address] [facility] CPT-97140 Level 5 Est. Patient 08:08:[address] [facility] CPT-07534 Level 4 Est. Patient 14:23:38 CDT Tu Landeros MD [facility] CPT-39842 Level 3 Est. Patient 11:44:04 CDT Tu Landeros MD [facility] CPT-01652 Level 3 Est. Patient 11:03:20 SENIOR CLIENT ADVISOR Tu Landeros MD [facility] CPT-07597 Level 3 Est. Patient 11:03:14 SENIOR CLIENT ADVISOR Tu Landeros MD [facility] CPT-57379 Level 3 Est. Patient 12:42:49 CDT Tu Landeros MD [facility] CPT-34762 Level 3 Est. Patient 11:52:06 CDT Tu Landeros MD [facility] CPT-66075 Level 3 Est. Patient 13:58:11 CDT Tu Landeros MD [facility] CPT-24643 Level 3 Est. Patient 17:50:07 CDT Fab Morales DO [facility] CPT-68978 Level 3 Est. Patient 12:06:29 CDT Elvira Cervantes MD [facility] CPT-41305 Level 3 Est. Patient 15:50:32 CDT Tu Landeros MD [facility] CPT-13937 Level 4 Est. Patient 16:08:29 CDT Tu Landeros MD [facility] CPT-73536 Level 3 Est. Patient 16:04:19 CDT Tu Landeros MD [facility] CPT-02513 Level 3 Est. Patient 11:22:30 SENIOR CLIENT ADVISOR Tu Landeros MD [facility] CPT-63344 Level 4 Est. Patient 16:24:02 SENIOR CLIENT ADVISOR Tu Landeros MD [facility] CPT-70096 Level 3 Est. Patient 17:21:23 SENIOR CLIENT ADVISOR Tu Landeros MD [facility] Procedures Code Procedure Name Date Entry Date Standard Description CPT-OV Office Visit 15:45:11 CDT CPT-000 Give Zostavax 14:09:06 CDT CPT-06333 Administration single or combination vaccine inc oral 15 :19:04 CDT CPT-18635 Zoster Vaccine (Zostavax) 15:19:04 CDT CPT-04996 Administration single or combination vaccine inc oral 20 :51:03 CDT CPT-18355 Influenza split virus > age 3 20:51:03 CDT CPT-49425 No Charge Offi Visit 14:52:03 CDT CPT-OV Office Visit 14:57:43 CDT CPT-OV Office Visit 15:22:32 CDT CPT-37837 Administration single or combination vaccine inc oral 11 :33:15 CDT CPT-66598 Influenza split virus > age 3 11:33:15 CDT
--- OUTSIDE RECORDS SUMMARY | 2018-04-25 20:04 | XMS REPORT | Clinical Summary ---
Author Author Admin, SACHI Clemons [facility] Address Unknown Phone Unavailable Allergies, Adverse [...] 12.5 MG TABS 1 po BID CARVEDILOL 75517644594 Active Tu Landeros MD Active CIPRO 500 MG TABS 1 bid x 14 days start 09-28-13 CIPROFLOXACIN HCL 07881815919 Active JASPREET Perez Active ALIGN 4 MG CAPS 1 tid PROBIOTIC PRODUCT 79743989214 Active JASPREET Perez Active BACTRIM DS 800-160 MG TABS 1 bid x 14 day start 09-28-13 SULFAMETHOXAZOLE-TRIMETHOPRIM 65785311420 Active JASPREET Perez Active GABAPENTIN 300 MG CAPS 1 tid GABAPENTIN 27261454690 Active JASPREET Perez Active SUPER B COMPLEX/VITAMIN C TABS 1 qd B COMPLEX-C 17993110514 Active JASPREET Perez Active TRILIPIX 135 MG CPDR 1 q hs CHOLINE FENOFIBRATE 09848803446 Active Tu Landeros MD Active FENOFIBRATE 145 MG TABS 1 po qd FENOFIBRATE 66890750476 No Longer Active JASPREET Perez Active OMEPRAZOLE 20 MG TBEC 1 PO 30 MIN BEFORE 1ST MEAL OMEPRAZOLE 50790716396 No Longer Active JASPREET Perez Active SIMVASTATIN 40 MG TABS Take one by mouth daily SIMVASTATIN 53494257510 No Longer Active JASPREET Perez Active GABAPENTIN 100 MG CAPS 1 po bid GABAPENTIN 26465252808 Active JASPREET Perez Active VENLAFAXINE HCL 37.5 MG TABS 1 bid VENLAFAXINE HCL 25088861424 Active JASPREET Perez Active VENLAFAXINE HCL 75 MG TABS 1 po BID VENLAFAXINE HCL 64445790007 No Longer Active JASPREET Perez Active HYDROCODONE-ACETAMINOPHEN 5-325 MG TABS 1 tab by mouth every 6 hours as needed for pain HYDROCODONE-ACETAMINOPHEN 65575556624 Active Tu Landeros MD Active METFORMIN HCL 500 MG TB24 1.5 po BID METFORMIN HCL 19582679402 Active Tu Landeros MD Active CIPRO 500 MG TAB 1 tablet by mouth twice daily CIPROFLOXACIN HCL 02083402844 No Longer Active Tu Landeros MD Active VENLAFAXINE HCL 37.5 MG TABS 1 po BID VENLAFAXINE HCL 13928928314 No Longer Active Suze Corey RMA Active [employer] STOOL SOFTENER 100 MG CAPS 1 tab daily DOCUSATE SODIUM 42957955213 Active Tu Landeros MD Active LAMISIL 250 MG TAB 1 po qd TERBINAFINE HCL 64485334149 No Longer Active Tu Landeros MD Active LORTAB 5 5-500 MG TABS 1/2 to 1 tablet by mouth every 4 hours as needed for pain HYDROCODONE-ACETAMINOPHEN 32091025765 No Longer Active Tu Landeros MD Active ENALAPRIL MALEATE 20 MG TABS 1.5 po qd ENALAPRIL MALEATE 67098275150 Active Tu Landeros MD Active HYDROCODONE-ACETAMINOPHEN 5-500 MG TABS take one po Q 4-6 hours prn HYDROCODONE-ACETAMINOPHEN 44895900444 No Longer Active Tu Landeros MD Active BACTRIM DS 800-160 MG TABS 1 po BID x 7 days SULFAMETHOXAZOLE-TRIMETHOPRIM 82293636197 No Longer Active Tu Landeros MD Active VENLAFAXINE HCL 75 MG TABS 1 po BID VENLAFAXINE HCL 97010110863 No Longer Active Elvira Cervantes MD PhD Active TRAMADOL HCL 50 MG TABS 1 tablets every 6 hours as needed for pain TRAMADOL HCL 34453875229 No Longer Active Tu Landeros MD Active TRUERESULT BLOOD GLUCOSE W/DEVICE KIT use to test blood sugar tid dx: 250.00 BLOOD GLUCOSE MONITORING SUPPL 04560941375 Active Tu Landeros MD Active TRUETEST TEST STRP test blood sugar three times daily dx: 250.00 GLUCOSE BLOOD 34508578682 Active Tu Landeros MD Active ACCU-CHEK FASTCLIX LANCETS MISC Use to check bloodsugar three times daily as needed LANCETS 86470806464 No Longer Active Tu Landeros MD Active ACCU-CHEK KEYONA PLUS STRP Use for testing bloodsugars three times daily as needed GLUCOSE BLOOD 73138093330 No Longer Active Tu Landeros MD Active ACCU-CHEK KEYONA PLUS W/DEVICE KIT Use for testing bloodsugars three times daily as needed BLOOD GLUCOSE MONITORING SUPPL 55131958408 No Longer Active Tu Landeros MD Active SPIRONOLACTONE 25 MG TAB 0.5 tablet by mouth daily SPIRONOLACTONE 88858914381 No Longer Active Tu Landeros MD Active ALPRAZOLAM 0.5 MG TABS 1 tab every 6hrs as needed ALPRAZOLAM 23849590720 No Longer Active Tu Landeros MD Active B-12 100 MCG TABS Take one by mouth daily CYANOCOBALAMIN 59102641576 Active Tu Landeros MD Active AUGMENTIN 875-125 MG TAB 1 tab by mouth twice daily with food AMOXICILLIN-POT CLAVULANATE 92526740981 No Longer Active Tu Landeros MD Active PREDNISONE 20 MG TAB 2 tabs daily for 3 days, 1 tab daily for 3 days, 1/2 tab daily for 2 days PREDNISONE 51917835270 No Longer Active Tu Landeros MD Active XANAX 0.5 MG TABS 1 tablet every 6 hrs prn ALPRAZOLAM 47011114442 No Longer Active Tu Landeros MD Active PREDNISONE 20 MG TAB 2 tabs daily for 3 days, 1 tab daily for 3 days, 1/2 tab daily for 2 days PREDNISONE 15562505271 No Longer Active Tu Landeros MD Active TRIAMCINOLONE ACETONIDE 0.1 % OINT Apply to affected areas TID for up to 2 weeks TRIAMCINOLONE ACETONIDE 55310425128 No Longer Active Tu Landeros MD Active LORTAB 5 5-500 MG TABS 1/2 to 1 tablet by mouth every 4 hours as needed for pain HYDROCODONE-ACETAMINOPHEN 13820466892 No Longer Active Tu Landeros MD Active MULTIVITAMINS TABS Take one by mouth daily MULTIPLE VITAMIN 49633463153 No Longer Active Tu Landeros MD Active MELATONIN 5 MG TABS Take one by mouth daily MELATONIN 87765341437 No Longer Active Tu Landeros MD Active SOMA 350 MG TAB 1 po q 6 hours prn spasm CARISOPRODOL 17831782124 No Longer Active Tu Landeros MD Active MECLIZINE HCL 25 MG CHEW TAB 1 four times a day as needed for dizziness 08/05 MECLIZINE HCL 45107176377 No Longer Active Fab Morales DO Active ANGEL BREEZE 2 TEST DISK test tid prn GLUCOSE BLOOD 21520162066 No Longer Active Negra Scott RN Active DICLOFENAC SODIUM 50 MG TBEC 1 tablet by mouth three times a day as needed DICLOFENAC SODIUM 02117543683 Active Tu Landeros MD Active REGLAN 10 MG TAB 1 po TID PRN [place] METOCLOPRAMIDE HCL 34091195420 No Longer Active Tu Landeros MD Active METFORMIN HCL 500 MG TABS 1 PO BID METFORMIN HCL 51582237377 No Longer Active Tu Landeros MD Active AMBIEN 10 MG TAB 1 tab by mouth at bedtime as needed for sleep ZOLPIDEM TARTRATE 67104345846 No Longer Active Tu Landeros MD Active FLUOXETINE HCL 40 MG CAPS 1 po q day FLUOXETINE HCL 23158060424 No Longer Active Mayra Terry Active FISH OIL 1000 MG CAPS Take one by mouth daily OMEGA-3 FATTY ACIDS 93032309678 Active Tu Landeros MD Active GLUCOSAMINE 500 MG TABS Take 2 tab po qd GLUCOSAMINE 87297589884 Active Tu Landeros MD Active TRILIPIX 135 MG CPDR 1 po qd CHOLINE FENOFIBRATE 05825053078 No Longer Active Tu Landeros MD Active ASPIRIN 81 MG CHEW TAB 1 tablet by mouth daily ASPIRIN 00033789120 Active Tu Landeros MD Active FUROSEMIDE 40 MG TAB 1 tablet by mouth daily FUROSEMIDE 31448220964 Active Tu Landeros MD Active REQUIP 2 MG TABS Take one tablet at bedtime prn ROPINIROLE HCL 16706342077 Active Tu Landeros MD Active KLOR-CON 10 10 MEQ CR-TABS TAKE 2 TABS DAILY POTASSIUM CHLORIDE 51964224448 Active Tu Landeros MD Active AMBIEN 10 MG TAB 1 tab by mouth at bedtime as needed for sleep AMBIEN 10 MG TAB 582476 ZOLPIDEM TARTRATE Inactive METFORMIN HCL 500 MG TABS 1 PO BID METFORMIN HCL 500 MG TABS 733182 METFORMIN HCL Inactive REGLAN 10 MG TAB 1 po TID PRN Nausea REGLAN 10 MG TAB 747760 METOCLOPRAMIDE HCL Inactive MECLIZINE HCL 25 MG CHEW TAB 1 four times a day as needed for dizziness 08/05 MECLIZINE HCL 25 MG CHEW TAB 159363 MECLIZINE HCL Inactive SOMA 350 MG TAB 1 po q 6 hours prn spasm SOMA 350 MG TAB 254235 CARISOPRODOL Inactive MELATONIN 5 MG TABS Take one by mouth daily MELATONIN 5 MG TABS 559390 MELATONIN Inactive MULTIVITAMINS TABS Take one by mouth daily MULTIVITAMINS TABS MULTIPLE VITAMIN Inactive LORTAB 5 5-500 MG TABS 1/2 to 1 tablet by mouth every 4 hours as needed for pain LORTAB 5 5-500 MG TABS HYDROCODONE- ACETAMINOPHEN Inactive XANAX 0.5 MG TABS 1 tablet every 6 hrs prn XANAX 0.5 MG TABS 948098 ALPRAZOLAM Inactive AUGMENTIN 875-125 MG TAB 1 tab by mouth twice daily with food AUGMENTIN 875-125 MG TAB 228777 AMOXICILLIN-POT CLAVULANATE Inactive ALPRAZOLAM 0.5 MG TABS 1 tab every 6hrs as needed ALPRAZOLAM 0.5 MG TABS 085098 ALPRAZOLAM Inactive SPIRONOLACTONE 25 MG TAB 0.5 tablet by mouth daily SPIRONOLACTONE 25 MG TAB 793037 SPIRONOLACTONE Inactive ACCU-CHEK KEYONA PLUS W/DEVICE KIT Use for testing bloodsugars three times daily as needed ACCU-CHEK KEYONA PLUS W/DEVICE KIT BLOOD GLUCOSE MONITORING SUPPL Inactive ACCU-CHEK KEYONA PLUS STRP Use for testing bloodsugars three times daily as needed ACCU-CHEK KEYONA PLUS STRP GLUCOSE BLOOD Inactive ACCU-CHEK FASTCLIX LANCETS MISC Use to check bloodsugar three times daily as needed ACCU-CHEK FASTCLIX LANCETS MISC 21595729287 LANCETS Inactive TRAMADOL HCL 50 MG TABS 1 tablets every 6 hours as needed for pain TRAMADOL HCL 50 MG TABS 663731 TRAMADOL HCL Inactive VENLAFAXINE HCL 75 MG TABS 1 po BID VENLAFAXINE HCL 75 MG TABS 635006 VENLAFAXINE HCL Inactive HYDROCODONE-ACETAMINOPHEN 5-500 MG TABS take one po Q 4-6 hours prn HYDROCODONE-ACETAMINOPHEN 5-500 MG TABS HYDROCODONE- ACETAMINOPHEN Inactive LORTAB 5 5-500 MG TABS 1/2 to 1 tablet by mouth every 4 hours as needed for pain LORTAB 5 5-500 MG TABS HYDROCODONE- ACETAMINOPHEN Inactive LAMISIL 250 MG TAB 1 po qd LAMISIL 250 MG TAB 924196 TERBINAFINE HCL Inactive VENLAFAXINE HCL 37.5 MG TABS 1 po BID VENLAFAXINE HCL 37.5 MG TABS 711608 VENLAFAXINE HCL Inactive CIPRO 500 MG TAB 1 tablet by mouth twice daily CIPRO 500 MG TAB 782706 CIPROFLOXACIN HCL Inactive VENLAFAXINE HCL 75 MG TABS 1 po BID VENLAFAXINE HCL 75 MG TABS 971041 VENLAFAXINE HCL Inactive SIMVASTATIN 40 MG TABS Take one by mouth daily SIMVASTATIN 40 MG TABS 235270 SIMVASTATIN Inactive OMEPRAZOLE 20 MG TBEC 1 PO 30 MIN BEFORE 1ST MEAL OMEPRAZOLE 20 MG TBEC 026837 OMEPRAZOLE Inactive FENOFIBRATE 145 MG TABS 1 po qd FENOFIBRATE 145 MG TABS 487900 FENOFIBRATE Inactive TRIAMCINOLONE ACETONIDE 0.1 % OINT Apply to affected areas TID for up to 2 weeks TRIAMCINOLONE ACETONIDE 0.1 % OINT 1711184 TRIAMCINOLONE ACETONIDE Inactive PREDNISONE 20 MG TAB 2 tabs daily for 3 days, 1 tab daily for 3 days, 1/2 tab daily for 2 days PREDNISONE 20 MG TAB 867953 PREDNISONE Inactive PREDNISONE 20 MG TAB 2 tabs daily for 3 days, 1 tab daily for 3 days, 1/2 tab daily for 2 days PREDNISONE 20 MG TAB 608485 PREDNISONE Inactive BACTRIM DS 800-160 MG TABS 1 po BID x 7 days BACTRIM DS 800-160 MG TABS SULFAMETHOXAZOLE-TRIMETHOPRIM Inactive Immunizations Vaccine Administration Date Value Standard Description Seasonal influenza vaccine, injectable, containing preservative, for > 3 years old (Afluria, FluLaval, Fluzone, Fluvirin, Fluarix, Agriflu(>=18 yo)) Fluzone (>3 yrs.) [[id number]] Influenza, seasonal, injectable influenza immunization (Flu Vax) has been administered 02/22/2012 influenza virus vaccine, unspecified formulation Seasonal influenza vaccine, injectable, containing preservative, for > 3 years old (Afluria, FluLaval, Fluzone, Fluvirin, Fluarix, Agriflu(>=18 yo)) Fluzone (>3 yrs.) [[id number]] Influenza, seasonal, injectable Vital Signs Date Name [...] Panel - Chemistry sodium, serum 139 mmol/L 132-124 0372/11/27 potassium, serum 4.9 mmol/L 3.5-5.2 chloride, serum [...] Panel - Chemistry sodium, serum 139 mmol/L 430-716 4440/11/22 potassium, serum 4.3 mmol/L 3.5-5.2 chloride, serum [...] HGBA1C - Chemistry sodium, serum 142 mmol/L 948-449 5972/10/22 potassium, serum 4.9 mmol/L 3.5-5.2 chloride, serum [...] 0.30 mg/dL 0.00-1.00 cholesterol, serum 139 mg/dL 439-339 2165/10/22 triglyceride, serum, fasting 168 mg/dL 30-200 HDL cholesterol, serum 40 mg/dL 32-96 LDL cholesterol, serum 65 mg/dL 0-130 hemoglobin A1C, blood, as % of total hemoglobin 6.2 % 4.3-6.0 sodium, serum 144 mmol/L 744-422 6351/04/16 potassium, serum 4.2 mmol/L 3.5-5.2 chloride, serum [...] 0.20 mg/dL 0.00-1.00 cholesterol, serum 133 mg/dL 049-806 4905/04/16 triglyceride, serum, fasting 142 mg/dL 30-200 HDL [...] mg/dL Encounters Code Encounter Date Provider Facility CPT-43684 Level 4 Est. Patient 09:45:25 CDT Tu Landeros MD [facility] CPT-10826 Level 4 Est. 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 Patient 14:09:06 CDT Tu Landeros MD [facility] CPT-14770 Level 3 Est. Patient 13:36:54 CDT Tu Landeros MD [facility] CPT-76935 Level 3 Est. Patient 08:59:14 CDT Tu Landeros MD [facility] CPT-93631 Level 3 Est. Patient 13:48:35 CDT Fab Morales DO [facility] CPT-76491 Level 4 Est. Patient 10:05:48 CDT Tu Landeros MD [facility] CPT-86964 Level 3 Est. Patient 13:38:42 CDT Marek BANKS [facility] CPT-00576 Level 5 Est. Patient 08:08:39 CDT Jerrica FRANCIS [facility] CPT-15902 Level 4 Est. Patient 14:23:38 CDT Tu Landeros MD [facility] CPT-47217 Level 3 Est. Patient 11:44:04 CDT Tu Landeros MD [facility] CPT-14154 Level 3 Est. 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 CPT-29137 Level 3 Est. 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 CPT-09180 Level 3 Est. Patient 12:42:49 CDT Tu Landeros MD [facility] CPT-14023 Level 3 Est. Patient 11:52:06 CDT Tu Landeros MD [facility] CPT-20433 Level 3 Est. Patient 13:58:11 CDT Tu Landeros MD [facility] CPT-07986 Level 3 Est. Patient 17:50:07 CDT Fab Morales DO [facility] CPT-60058 Level 3 Est. Patient 12:06:29 CDT Elvira Cervantes MD [facility] CPT-28814 Level 3 Est. Patient 15:50:32 CDT Tu Landeros MD [facility] CPT-96809 Level 4 Est. Patient 16:08:29 CDT Tu Landeros MD [facility] CPT-13931 Level 3 Est. Patient 16:04:19 CDT Tu Landeros MD [facility] CPT-85873 Level 3 Est. 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 CPT-80215 Level 4 Est. 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 CPT-83709 Level 3 Est. 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 Procedures Code Procedure Name Date Entry Date Standard Description CPT-OV Office Visit 15:45:11 CDT CPT-000 Give Zostavax 14:09:06 CDT CPT-06376 Administration single or combination vaccine inc oral 15 :19:04 CDT CPT-73987 Zoster Vaccine (Zostavax) 15:19:04 CDT CPT-44868 Administration single or combination vaccine inc oral 20 :51:03 CDT CPT-70012 Influenza split virus > age 3 20:51:03 CDT CPT-17283 No Charge Offi Visit 14:52:03 CDT CPT-OV Office Visit 14:57:43 CDT CPT-OV Office Visit 15:22:32 CDT CPT-04023 Administration single or combination vaccine inc oral 11 :33:15 CDT CPT-32194 Influenza split virus > age 3 11:33:15 CDT
--- OUTSIDE RECORDS SUMMARY | 2018-04-25 20:05 | XMS REPORT | Clinical Summary ---
[...] 12.5 MG TABS 1 po BID CARVEDILOL 58166905313 Active Tu Landeros MD Active CIPRO 500 MG TABS 1 bid x 14 days start 09-28-13 CIPROFLOXACIN HCL 67900292098 Active JASPREET Perez Active ALIGN 4 MG CAPS 1 tid PROBIOTIC PRODUCT 67130557600 Active JASPREET Perez Active BACTRIM DS 800-160 MG TABS 1 bid x 14 day start 09-28-13 SULFAMETHOXAZOLE-TRIMETHOPRIM 63803310698 Active JASPREET Perez Active GABAPENTIN 300 MG CAPS 1 tid GABAPENTIN 81686261990 Active JASPREET Perez Active SUPER B COMPLEX/VITAMIN C TABS 1 qd B COMPLEX-C 95077289084 Active JASPREET Perez Active TRILIPIX 135 MG CPDR 1 q hs CHOLINE FENOFIBRATE 56161994817 Active uT Landeros MD Active FENOFIBRATE 145 MG TABS 1 po qd FENOFIBRATE 14088979369 No Longer Active JASPREET Perez Active OMEPRAZOLE 20 MG TBEC 1 PO 30 MIN BEFORE 1ST MEAL OMEPRAZOLE 90685458420 No Longer Active JASPREET Perez Active SIMVASTATIN 40 MG TABS Take one by mouth daily SIMVASTATIN 17574572664 No Longer Active JASPREET Perez Active GABAPENTIN 100 MG CAPS 1 po bid GABAPENTIN 18801050415 Active JASPREET Perez Active VENLAFAXINE HCL 37.5 MG TABS 1 bid VENLAFAXINE HCL 15709530812 Active JASPREET Perez Active VENLAFAXINE HCL 75 MG TABS 1 po BID VENLAFAXINE HCL 72043437128 No Longer Active JASPREET Perez Active HYDROCODONE-ACETAMINOPHEN 5-325 MG TABS 1 tab by mouth every 6 hours as needed for pain HYDROCODONE-ACETAMINOPHEN 81832865108 Active Tu Landeros MD Active METFORMIN HCL 500 MG TB24 1.5 po BID METFORMIN HCL 40601466711 Active Tu Landeros MD Active CIPRO 500 MG TAB 1 tablet by mouth twice daily CIPROFLOXACIN HCL 40873324115 No Longer Active Tu Landeros MD Active VENLAFAXINE HCL 37.5 MG TABS 1 po BID VENLAFAXINE HCL 19597941186 No Longer Active Suze Corey RMA Active [employer] STOOL SOFTENER 100 MG CAPS 1 tab daily DOCUSATE SODIUM 13507319896 Active Tu Landeros MD Active LAMISIL 250 MG TAB 1 po qd TERBINAFINE HCL 35746684432 No Longer Active Tu Landeros MD Active LORTAB 5 5-500 MG TABS 1/2 to 1 tablet by mouth every 4 hours as needed for pain HYDROCODONE-ACETAMINOPHEN 30013240288 No Longer Active Tu Landeros MD Active ENALAPRIL MALEATE 20 MG TABS 1.5 po qd ENALAPRIL MALEATE 97455605113 Active Tu Landeros MD Active HYDROCODONE-ACETAMINOPHEN 5-500 MG TABS take one po Q 4-6 hours prn HYDROCODONE-ACETAMINOPHEN 78806660710 No Longer Active Tu Landeros MD Active BACTRIM DS 800-160 MG TABS 1 po BID x 7 days SULFAMETHOXAZOLE-TRIMETHOPRIM 20427812143 No Longer Active Tu Landeros MD Active VENLAFAXINE HCL 75 MG TABS 1 po BID VENLAFAXINE HCL 39727486829 No Longer Active Elvira Cervantes MD PhD Active TRAMADOL HCL 50 MG TABS 1 tablets every 6 hours as needed for pain TRAMADOL HCL 75402237498 No Longer Active Tu Landeros MD Active TRUERESULT BLOOD GLUCOSE W/DEVICE KIT use to test blood sugar tid dx: 250.00 BLOOD GLUCOSE MONITORING SUPPL 46366704905 Active Tu Landeros MD Active TRUETEST TEST STRP test blood sugar three times daily dx: 250.00 GLUCOSE BLOOD 87024298972 Active Tu Landeros MD Active ACCU-CHEK FASTCLIX LANCETS MISC Use to check bloodsugar three times daily as needed LANCETS 52047823515 No Longer Active Tu Landeros MD Active ACCU-CHEK KEYONA PLUS STRP Use for testing bloodsugars three times daily as needed GLUCOSE BLOOD 03808624987 No Longer Active Tu Landeros MD Active ACCU-CHEK KEYONA PLUS W/DEVICE KIT Use for testing bloodsugars three times daily as needed BLOOD GLUCOSE MONITORING SUPPL 93338563231 No Longer Active Tu Landeros MD Active SPIRONOLACTONE 25 MG TAB 0.5 tablet by mouth daily SPIRONOLACTONE 69633608134 No Longer Active Tu Landeros MD Active ALPRAZOLAM 0.5 MG TABS 1 tab every 6hrs as needed ALPRAZOLAM 77252847371 No Longer Active Tu Landeros MD Active B-12 100 MCG TABS Take one by mouth daily CYANOCOBALAMIN 56266478136 Active Tu Landeros MD Active AUGMENTIN 875-125 MG TAB 1 tab by mouth twice daily with food AMOXICILLIN-POT CLAVULANATE 32803712747 No Longer Active Tu Landeros MD Active PREDNISONE 20 MG TAB 2 tabs daily for 3 days, 1 tab daily for 3 days, 1/2 tab daily for 2 days PREDNISONE 66913361941 No Longer Active Tu Landeros MD Active XANAX 0.5 MG TABS 1 tablet every 6 hrs prn ALPRAZOLAM 12351634809 No Longer Active Tu Landeros MD Active PREDNISONE 20 MG TAB 2 tabs daily for 3 days, 1 tab daily for 3 days, 1/2 tab daily for 2 days PREDNISONE 88755681462 No Longer Active Tu Landeros MD Active TRIAMCINOLONE ACETONIDE 0.1 % OINT Apply to affected areas TID for up to 2 weeks TRIAMCINOLONE ACETONIDE 92728401116 No Longer Active Tu Landeros MD Active LORTAB 5 5-500 MG TABS 1/2 to 1 tablet by mouth every 4 hours as needed for pain HYDROCODONE-ACETAMINOPHEN 07142665058 No Longer Active Tu Landeros MD Active MULTIVITAMINS TABS Take one by mouth daily MULTIPLE VITAMIN 63807627884 No Longer Active Tu Landeros MD Active MELATONIN 5 MG TABS Take one by mouth daily MELATONIN 05542006341 No Longer Active Tu Landeros MD Active SOMA 350 MG TAB 1 po q 6 hours prn spasm CARISOPRODOL 72736446910 No Longer Active Tu Landeros MD Active MECLIZINE HCL 25 MG CHEW TAB 1 four times a day as needed for dizziness 08/05 MECLIZINE HCL 59403050309 No Longer Active Fab Morales DO Active ANGEL BREEZE 2 TEST DISK test tid prn GLUCOSE BLOOD 53626488895 No Longer Active Negra Scott RN Active DICLOFENAC SODIUM 50 MG TBEC 1 tablet by mouth three times a day as needed DICLOFENAC SODIUM 27616670374 Active Tu Landeros MD Active REGLAN 10 MG TAB 1 po TID PRN [place] METOCLOPRAMIDE HCL 83122382941 No Longer Active Tu Landeros MD Active METFORMIN HCL 500 MG TABS 1 PO BID METFORMIN HCL 12634623093 No Longer Active Tu Landeros MD Active AMBIEN 10 MG TAB 1 tab by mouth at bedtime as needed for sleep ZOLPIDEM TARTRATE 92533341067 No Longer Active Tu Landeros MD Active FLUOXETINE HCL 40 MG CAPS 1 po q day FLUOXETINE HCL 02864466420 No Longer Active Mayra Terry Active FISH OIL 1000 MG CAPS Take one by mouth daily OMEGA-3 FATTY ACIDS 74039539585 Active Tu Landeros MD Active GLUCOSAMINE 500 MG TABS Take 2 tab po qd GLUCOSAMINE 89076767515 Active Tu Landeros MD Active TRILIPIX 135 MG CPDR 1 po qd CHOLINE FENOFIBRATE 29558526900 No Longer Active Tu Landeros MD Active ASPIRIN 81 MG CHEW TAB 1 tablet by mouth daily ASPIRIN 26107562254 Active Tu Landeros MD Active FUROSEMIDE 40 MG TAB 1 tablet by mouth daily FUROSEMIDE 78787008198 Active Tu Landeros MD Active REQUIP 2 MG TABS Take one tablet at bedtime prn ROPINIROLE HCL 22875883722 Active Tu Landeros MD Active KLOR-CON 10 10 MEQ CR-TABS TAKE 2 TABS DAILY POTASSIUM CHLORIDE 91874055599 Active Tu Landeros MD Active AMBIEN 10 MG TAB 1 tab by mouth at bedtime as needed for sleep AMBIEN 10 MG TAB 828524 ZOLPIDEM TARTRATE Inactive METFORMIN HCL 500 MG TABS 1 PO BID METFORMIN HCL 500 MG TABS 139827 METFORMIN HCL Inactive REGLAN 10 MG TAB 1 po TID PRN [place] REGLAN 10 MG TAB 752864 METOCLOPRAMIDE HCL Inactive MECLIZINE HCL 25 MG CHEW TAB 1 four times a day as needed for dizziness 08/05 MECLIZINE HCL 25 MG CHEW TAB 121894 MECLIZINE HCL Inactive SOMA 350 MG TAB 1 po q 6 hours prn spasm SOMA 350 MG TAB 744236 CARISOPRODOL Inactive MELATONIN 5 MG TABS Take one by mouth daily MELATONIN 5 MG TABS 292380 MELATONIN Inactive MULTIVITAMINS TABS Take one by mouth daily MULTIVITAMINS TABS MULTIPLE VITAMIN Inactive LORTAB 5 5-500 MG TABS 1/2 to 1 tablet by mouth every 4 hours as needed for pain LORTAB 5 5-500 MG TABS HYDROCODONE- ACETAMINOPHEN Inactive XANAX 0.5 MG TABS 1 tablet every 6 hrs prn XANAX 0.5 MG TABS 520168 ALPRAZOLAM Inactive AUGMENTIN 875-125 MG TAB 1 tab by mouth twice daily with food AUGMENTIN 875-125 MG TAB 841672 AMOXICILLIN-POT CLAVULANATE Inactive ALPRAZOLAM 0.5 MG TABS 1 tab every 6hrs as needed ALPRAZOLAM 0.5 MG TABS 938778 ALPRAZOLAM Inactive SPIRONOLACTONE 25 MG TAB 0.5 tablet by mouth daily SPIRONOLACTONE 25 MG TAB 639946 SPIRONOLACTONE Inactive ACCU-CHEK KEYONA PLUS W/DEVICE KIT Use for testing bloodsugars three times daily as needed ACCU-CHEK KEYONA PLUS W/DEVICE KIT BLOOD GLUCOSE MONITORING SUPPL Inactive ACCU-CHEK KEYONA PLUS STRP Use for testing bloodsugars three times daily as needed ACCU-CHEK KEYONA PLUS STRP GLUCOSE BLOOD Inactive ACCU-CHEK FASTCLIX LANCETS MISC Use to check bloodsugar three times daily as needed ACCU-CHEK FASTCLIX LANCETS MISC 24444445918 LANCETS Inactive TRAMADOL HCL 50 MG TABS 1 tablets every 6 hours as needed for pain TRAMADOL HCL 50 MG TABS 007542 TRAMADOL HCL Inactive VENLAFAXINE HCL 75 MG TABS 1 po BID VENLAFAXINE HCL 75 MG TABS 305168 VENLAFAXINE HCL Inactive HYDROCODONE-ACETAMINOPHEN 5-500 MG TABS take one po Q 4-6 hours prn HYDROCODONE-ACETAMINOPHEN 5-500 MG TABS HYDROCODONE- ACETAMINOPHEN Inactive LORTAB 5 5-500 MG TABS 1/2 to 1 tablet by mouth every 4 hours as needed for pain LORTAB 5 5-500 MG TABS HYDROCODONE- ACETAMINOPHEN Inactive LAMISIL 250 MG TAB 1 po qd LAMISIL 250 MG TAB 315626 TERBINAFINE HCL Inactive VENLAFAXINE HCL 37.5 MG TABS 1 po BID VENLAFAXINE HCL 37.5 MG TABS 674710 VENLAFAXINE HCL Inactive CIPRO 500 MG TAB 1 tablet by mouth twice daily CIPRO 500 MG TAB 871115 CIPROFLOXACIN HCL Inactive VENLAFAXINE HCL 75 MG TABS 1 po BID VENLAFAXINE HCL 75 MG TABS 067260 VENLAFAXINE HCL Inactive SIMVASTATIN 40 MG TABS Take one by mouth daily SIMVASTATIN 40 MG TABS 410662 SIMVASTATIN Inactive OMEPRAZOLE 20 MG TBEC 1 PO 30 MIN BEFORE 1ST MEAL OMEPRAZOLE 20 MG TBEC 317708 OMEPRAZOLE Inactive FENOFIBRATE 145 MG TABS 1 po qd FENOFIBRATE 145 MG TABS 161145 FENOFIBRATE Inactive TRIAMCINOLONE ACETONIDE 0.1 % OINT Apply to affected areas TID for up to 2 weeks TRIAMCINOLONE ACETONIDE 0.1 % OINT 6607631 TRIAMCINOLONE ACETONIDE Inactive PREDNISONE 20 MG TAB 2 tabs daily for 3 days, 1 tab daily for 3 days, 1/2 tab daily for 2 days PREDNISONE 20 MG TAB 121760 PREDNISONE Inactive PREDNISONE 20 MG TAB 2 tabs daily for 3 days, 1 tab daily for 3 days, 1/2 tab daily for 2 days PREDNISONE 20 MG TAB 456565 PREDNISONE Inactive BACTRIM DS 800-160 MG TABS 1 po BID x 7 days BACTRIM DS 800-160 MG TABS SULFAMETHOXAZOLE-TRIMETHOPRIM Inactive Immunizations Vaccine Administration Date Value Standard Description Seasonal influenza vaccine, injectable, containing preservative, for > 3 years old (Afluria, FluLaval, Fluzone, Fluvirin, Fluarix, Agriflu(>=18 yo)) Fluzone (>3 yrs.) [[id number]] Influenza, seasonal, injectable influenza immunization (Flu Vax) has been administered 02/22/2012 influenza virus vaccine, unspecified formulation Seasonal influenza vaccine, injectable, containing preservative, for > 3 years old (Afluria, FluLaval, Fluzone, Fluvirin, Fluarix, Agriflu(>=18 yo)) Fluzone (>3 yrs.) [[id number]] Influenza, seasonal, injectable Vital Signs Date Name [...] Panel - Chemistry sodium, serum 139 mmol/L 489-552 8529/11/27 potassium, serum 4.9 mmol/L 3.5-5.2 chloride, serum [...] Panel - Chemistry sodium, serum 139 mmol/L 073-184 4706/11/22 potassium, serum 4.3 mmol/L 3.5-5.2 chloride, serum [...] 0.30 mg/dL 0.00-1.00 cholesterol, serum 139 mg/dL 514-348 9454/10/22 triglyceride, serum, fasting 168 mg/dL 30-200 HDL cholesterol, serum 40 mg/dL 32-96 LDL cholesterol, serum 65 mg/dL 0-130 hemoglobin A1C, blood, as % of total hemoglobin 6.2 % 4.3-6.0 blood glucose 104 mg/dL 65-110 carbon dioxide, venous blood 31.8 mmol/L 21.0-32.0 chloride, serum 105 mmol/L 98-107 potassium, serum 4.9 mmol/L 3.5-5.2 sodium, serum 142 mmol/L 253-168 0920/10/22 alkaline phosphatase, serum 86 U/L 50-136 aspartate aminotransferase (SGOT), serum 24 U/L 15-37 alanine aminotransferase (SGPT), serum 36 U/L 12-78 creatinine, serum 1.30 mg/dL 0.60-1.30 urea nitrogen, blood 25 mg/dL 7-18 sodium, serum 144 mmol/L 765-127 3142/04/16 potassium, serum 4.2 mmol/L 3.5-5.2 chloride, serum [...] 0.20 mg/dL 0.00-1.00 cholesterol, serum 133 mg/dL 951-234 4426/04/16 triglyceride, serum, fasting 142 mg/dL 30-200 HDL [...] mg/dL Encounters Code Encounter Date Provider Facility CPT-54883 Level 4 Est. Patient 09:45:25 CDT Tu Landeros MD [facility] CPT-02918 Level 4 Est. Patient 09:05:20 GRADES 9 12 TUTOR Tu Landeros MD [facility] CPT-24776 Level 4 Est. Patient 14:09:06 CDT Tu Landeros MD [facility] CPT-63796 Level 3 Est. Patient 13:36:54 CDT Tu Landeros MD [facility] CPT-92939 Level 3 Est. Patient 08:59:14 CDT Tu Landeros MD [facility] CPT-69964 Level 3 Est. Patient 13:48:35 CDT Fab Morales DO [facility] CPT-06440 Level 4 Est. Patient 10:05:48 CDT Tu Landeros MD [facility] CPT-33608 Level 3 Est. Patient 13:38:42 CDT Marek BANKS [facility] CPT-20115 Level 5 Est. Patient 08:08:39 CDT Jerrica FRANCIS [facility] CPT-51541 Level 4 Est. Patient 14:23:38 CDT Tu Landeros MD [facility] CPT-32259 Level 3 Est. Patient 11:44:04 CDT Tu Landeros MD [facility] CPT-01022 Level 3 Est. Patient 11:03:20 GRADES 9 12 TUTOR Tu Landeros MD [facility] CPT-59951 Level 3 Est. Patient 11:03:14 GRADES 9 12 TUTOR Tu Landeros MD [facility] CPT-75984 Level 3 Est. Patient 12:42:49 CDT Tu Landeros MD [facility] CPT-19143 Level 3 Est. Patient 11:52:06 CDT Tu Landeros MD [facility] CPT-28940 Level 3 Est. Patient 13:58:11 CDT Tu Landeros MD [facility] CPT-21991 Level 3 Est. Patient 17:50:07 CDT Fab Morales DO [facility] CPT-69511 Level 3 Est. Patient 12:06:29 CDT Elvira Cervantes MD [facility] CPT-75729 Level 3 Est. Patient 15:50:32 CDT Tu Landeros MD [facility] CPT-25715 Level 4 Est. Patient 16:08:29 CDT Tu Landeros MD [facility] CPT-38901 Level 3 Est. Patient 16:04:19 CDT Tu Landeros MD [facility] CPT-57668 Level 3 Est. Patient 11:22:30 GRADES 9 12 TUTOR Tu Landeros MD [facility] CPT-39110 Level 4 Est. Patient 16:24:02 GRADES 9 12 TUTOR Tu Landeros MD [facility] CPT-25709 Level 3 Est. Patient 17:21:23 GRADES 9 12 TUTOR Tu Landeros MD [facility] Procedures Code Procedure Name Date Entry Date Standard Description CPT-OV Office Visit 15:45:11 CDT CPT-000 Give Zostavax 14:09:06 CDT CPT-47317 Administration single or combination vaccine inc oral 15 :19:04 CDT CPT-10005 Zoster Vaccine (Zostavax) 15:19:04 CDT CPT-94615 Administration single or combination vaccine inc oral 20 :51:03 CDT CPT-39683 Influenza split virus > age 3 20:51:03 CDT CPT-40842 No Charge Offi Visit 14:52:03 CDT CPT-OV Office Visit 14:57:43 CDT CPT-OV Office Visit 15:22:32 CDT CPT-02824 Administration single or combination vaccine inc oral 11 :33:15 CDT CPT-58589 Influenza split virus > age 3 11:33:15 CDT
--- OUTSIDE RECORDS SUMMARY | 2018-04-25 20:06 | XMS REPORT | Clinical Summary ---
Author Author Admin, SACHI Clemons [facility] Address Unknown Phone Unavailable Allergies, Adverse [...] 12.5 MG TABS 1 po BID CARVEDILOL 55376416992 Active Tu Landeros MD Active CIPRO 500 MG TABS 1 bid x 14 days start 09-28-13 CIPROFLOXACIN HCL 40720683239 Active JASPREET Perez Active ALIGN 4 MG CAPS 1 tid PROBIOTIC PRODUCT 72830480185 Active JASPREET Perez Active BACTRIM DS 800-160 MG TABS 1 bid x 14 day start 09-28-13 SULFAMETHOXAZOLE-TRIMETHOPRIM 23128867381 Active JASPREET Perez Active GABAPENTIN 300 MG CAPS 1 tid GABAPENTIN 07707128061 Active JASPREET Perez Active SUPER B COMPLEX/VITAMIN C TABS 1 qd B COMPLEX-C 26969044509 Active JASPREET Perez Active TRILIPIX 135 MG CPDR 1 q hs CHOLINE FENOFIBRATE 32536733891 Active Tu Landeros MD Active FENOFIBRATE 145 MG TABS 1 po qd FENOFIBRATE 88911852968 No Longer Active JASPREET Perez Active OMEPRAZOLE 20 MG TBEC 1 PO 30 MIN BEFORE 1ST MEAL OMEPRAZOLE 45430266120 No Longer Active JASPREET Perez Active SIMVASTATIN 40 MG TABS Take one by mouth daily SIMVASTATIN 37892258789 No Longer Active JASPREET Perez Active GABAPENTIN 100 MG CAPS 1 po bid GABAPENTIN 05060355986 Active JASPREET Perez Active VENLAFAXINE HCL 37.5 MG TABS 1 bid VENLAFAXINE HCL 10733190831 Active JASPREET Perez Active VENLAFAXINE HCL 75 MG TABS 1 po BID VENLAFAXINE HCL 07685811995 No Longer Active JASPREET Perez Active HYDROCODONE-ACETAMINOPHEN 5-325 MG TABS 1 tab by mouth every 6 hours as needed for pain HYDROCODONE-ACETAMINOPHEN 46958163108 Active Tu Landeros MD Active METFORMIN HCL 500 MG TB24 1.5 po BID METFORMIN HCL 20389997345 Active Tu Landeros MD Active CIPRO 500 MG TAB 1 tablet by mouth twice daily CIPROFLOXACIN HCL 94715457289 No Longer Active Tu Landeros MD Active VENLAFAXINE HCL 37.5 MG TABS 1 po BID VENLAFAXINE HCL 95353699546 No Longer Active Suze Corey RMA Active [employer] STOOL SOFTENER 100 MG CAPS 1 tab daily DOCUSATE SODIUM 43761971312 Active Tu Landeros MD Active LAMISIL 250 MG TAB 1 po qd TERBINAFINE HCL 11573812761 No Longer Active Tu Landeros MD Active LORTAB 5 5-500 MG TABS 1/2 to 1 tablet by mouth every 4 hours as needed for pain HYDROCODONE-ACETAMINOPHEN 96384702970 No Longer Active Tu Landeros MD Active ENALAPRIL MALEATE 20 MG TABS 1.5 po qd ENALAPRIL MALEATE 70569781246 Active Tu Landeros MD Active HYDROCODONE-ACETAMINOPHEN 5-500 MG TABS take one po Q 4-6 hours prn HYDROCODONE-ACETAMINOPHEN 16755157209 No Longer Active Tu Landeros MD Active BACTRIM DS 800-160 MG TABS 1 po BID x 7 days SULFAMETHOXAZOLE-TRIMETHOPRIM 80419022352 No Longer Active Tu Landeros MD Active VENLAFAXINE HCL 75 MG TABS 1 po BID VENLAFAXINE HCL 46475335082 No Longer Active Elvira Cervantes MD PhD Active TRAMADOL HCL 50 MG TABS 1 tablets every 6 hours as needed for pain TRAMADOL HCL 01977399298 No Longer Active Tu Landeros MD Active TRUERESULT BLOOD GLUCOSE W/DEVICE KIT use to test blood sugar tid dx: 250.00 BLOOD GLUCOSE MONITORING SUPPL 92899760527 Active Tu Landeros MD Active TRUETEST TEST STRP test blood sugar three times daily dx: 250.00 GLUCOSE BLOOD 61408395078 Active Tu Landeros MD Active ACCU-CHEK FASTCLIX LANCETS MISC Use to check bloodsugar three times daily as needed LANCETS 05058006611 No Longer Active Tu Landeros MD Active ACCU-CHEK KEYONA PLUS STRP Use for testing bloodsugars three times daily as needed GLUCOSE BLOOD 92789582727 No Longer Active Tu Landeros MD Active ACCU-CHEK KEYONA PLUS W/DEVICE KIT Use for testing bloodsugars three times daily as needed BLOOD GLUCOSE MONITORING SUPPL 86368931111 No Longer Active Tu Landeros MD Active SPIRONOLACTONE 25 MG TAB 0.5 tablet by mouth daily SPIRONOLACTONE 52156225185 No Longer Active Tu Landeros MD Active ALPRAZOLAM 0.5 MG TABS 1 tab every 6hrs as needed ALPRAZOLAM 57386346356 No Longer Active Tu Landeros MD Active B-12 100 MCG TABS Take one by mouth daily CYANOCOBALAMIN 14893615708 Active Tu Landeros MD Active AUGMENTIN 875-125 MG TAB 1 tab by mouth twice daily with food AMOXICILLIN-POT CLAVULANATE 03905191108 No Longer Active Tu Landeros MD Active PREDNISONE 20 MG TAB 2 tabs daily for 3 days, 1 tab daily for 3 days, 1/2 tab daily for 2 days PREDNISONE 57384645768 No Longer Active Tu Landeros MD Active XANAX 0.5 MG TABS 1 tablet every 6 hrs prn ALPRAZOLAM 48218728232 No Longer Active Tu Landeros MD Active PREDNISONE 20 MG TAB 2 tabs daily for 3 days, 1 tab daily for 3 days, 1/2 tab daily for 2 days PREDNISONE 06307846573 No Longer Active Tu Landeros MD Active TRIAMCINOLONE ACETONIDE 0.1 % OINT Apply to affected areas TID for up to 2 weeks TRIAMCINOLONE ACETONIDE 54724864049 No Longer Active Tu Landeros MD Active LORTAB 5 5-500 MG TABS 1/2 to 1 tablet by mouth every 4 hours as needed for pain HYDROCODONE-ACETAMINOPHEN 58580530297 No Longer Active Tu Landeros MD Active MULTIVITAMINS TABS Take one by mouth daily MULTIPLE VITAMIN 38283391386 No Longer Active Tu Landeros MD Active MELATONIN 5 MG TABS Take one by mouth daily MELATONIN 79377689828 No Longer Active Tu Landeros MD Active SOMA 350 MG TAB 1 po q 6 hours prn spasm CARISOPRODOL 60297979354 No Longer Active Tu Landeros MD Active MECLIZINE HCL 25 MG CHEW TAB 1 four times a day as needed for dizziness 08/05 MECLIZINE HCL 88878903001 No Longer Active Fab Morales DO Active ANGEL BREEZE 2 TEST DISK test tid prn GLUCOSE BLOOD 20525205254 No Longer Active Negra Scott RN Active DICLOFENAC SODIUM 50 MG TBEC 1 tablet by mouth three times a day as needed DICLOFENAC SODIUM 30170874004 Active Tu Landeros MD Active REGLAN 10 MG TAB 1 po TID PRN [place] METOCLOPRAMIDE HCL 55641708260 No Longer Active Tu Landeros MD Active METFORMIN HCL 500 MG TABS 1 PO BID METFORMIN HCL 85337727006 No Longer Active Tu Landeros MD Active AMBIEN 10 MG TAB 1 tab by mouth at bedtime as needed for sleep ZOLPIDEM TARTRATE 75913820917 No Longer Active Tu Landeros MD Active FLUOXETINE HCL 40 MG CAPS 1 po q day FLUOXETINE HCL 87837365809 No Longer Active Mayra Terry Active FISH OIL 1000 MG CAPS Take one by mouth daily OMEGA-3 FATTY ACIDS 54076249306 Active Tu Landeros MD Active GLUCOSAMINE 500 MG TABS Take 2 tab po qd GLUCOSAMINE 49565177408 Active Tu Landeros MD Active TRILIPIX 135 MG CPDR 1 po qd CHOLINE FENOFIBRATE 70306779357 No Longer Active Tu Landeros MD Active ASPIRIN 81 MG CHEW TAB 1 tablet by mouth daily ASPIRIN 08695981478 Active Tu Landeros MD Active FUROSEMIDE 40 MG TAB 1 tablet by mouth daily FUROSEMIDE 67228688821 Active Tu Landeros MD Active REQUIP 2 MG TABS Take one tablet at bedtime prn ROPINIROLE HCL 37282967674 Active Tu Landeros MD Active KLOR-CON 10 10 MEQ CR-TABS TAKE 2 TABS DAILY POTASSIUM CHLORIDE 55992749109 Active Tu Landeros MD Active AMBIEN 10 MG TAB 1 tab by mouth at bedtime as needed for sleep AMBIEN 10 MG TAB 836682 ZOLPIDEM TARTRATE Inactive METFORMIN HCL 500 MG TABS 1 PO BID METFORMIN HCL 500 MG TABS 805408 METFORMIN HCL Inactive REGLAN 10 MG TAB 1 po TID PRN Nausea REGLAN 10 MG TAB 065329 METOCLOPRAMIDE HCL Inactive MECLIZINE HCL 25 MG CHEW TAB 1 four times a day as needed for dizziness 08/05 MECLIZINE HCL 25 MG CHEW TAB 430465 MECLIZINE HCL Inactive SOMA 350 MG TAB 1 po q 6 hours prn spasm SOMA 350 MG TAB 713200 CARISOPRODOL Inactive MELATONIN 5 MG TABS Take one by mouth daily MELATONIN 5 MG TABS 296170 MELATONIN Inactive MULTIVITAMINS TABS Take one by mouth daily MULTIVITAMINS TABS MULTIPLE VITAMIN Inactive LORTAB 5 5-500 MG TABS 1/2 to 1 tablet by mouth every 4 hours as needed for pain LORTAB 5 5-500 MG TABS HYDROCODONE- ACETAMINOPHEN Inactive XANAX 0.5 MG TABS 1 tablet every 6 hrs prn XANAX 0.5 MG TABS 848910 ALPRAZOLAM Inactive AUGMENTIN 875-125 MG TAB 1 tab by mouth twice daily with food AUGMENTIN 875-125 MG TAB 396829 AMOXICILLIN-POT CLAVULANATE Inactive ALPRAZOLAM 0.5 MG TABS 1 tab every 6hrs as needed ALPRAZOLAM 0.5 MG TABS 509323 ALPRAZOLAM Inactive SPIRONOLACTONE 25 MG TAB 0.5 tablet by mouth daily SPIRONOLACTONE 25 MG TAB 801444 SPIRONOLACTONE Inactive ACCU-CHEK KEYONA PLUS W/DEVICE KIT Use for testing bloodsugars three times daily as needed ACCU-CHEK KEYONA PLUS W/DEVICE KIT BLOOD GLUCOSE MONITORING SUPPL Inactive ACCU-CHEK KEYONA PLUS STRP Use for testing bloodsugars three times daily as needed ACCU-CHEK KEYONA PLUS STRP GLUCOSE BLOOD Inactive ACCU-CHEK FASTCLIX LANCETS MISC Use to check bloodsugar three times daily as needed ACCU-CHEK FASTCLIX LANCETS MISC 13078101729 LANCETS Inactive TRAMADOL HCL 50 MG TABS 1 tablets every 6 hours as needed for pain TRAMADOL HCL 50 MG TABS 749661 TRAMADOL HCL Inactive VENLAFAXINE HCL 75 MG TABS 1 po BID VENLAFAXINE HCL 75 MG TABS 994397 VENLAFAXINE HCL Inactive HYDROCODONE-ACETAMINOPHEN 5-500 MG TABS take one po Q 4-6 hours prn HYDROCODONE-ACETAMINOPHEN 5-500 MG TABS HYDROCODONE- ACETAMINOPHEN Inactive LORTAB 5 5-500 MG TABS 1/2 to 1 tablet by mouth every 4 hours as needed for pain LORTAB 5 5-500 MG TABS HYDROCODONE- ACETAMINOPHEN Inactive LAMISIL 250 MG TAB 1 po qd LAMISIL 250 MG TAB 077133 TERBINAFINE HCL Inactive VENLAFAXINE HCL 37.5 MG TABS 1 po BID VENLAFAXINE HCL 37.5 MG TABS 806810 VENLAFAXINE HCL Inactive CIPRO 500 MG TAB 1 tablet by mouth twice daily CIPRO 500 MG TAB 356385 CIPROFLOXACIN HCL Inactive VENLAFAXINE HCL 75 MG TABS 1 po BID VENLAFAXINE HCL 75 MG TABS 535770 VENLAFAXINE HCL Inactive SIMVASTATIN 40 MG TABS Take one by mouth daily SIMVASTATIN 40 MG TABS 674683 SIMVASTATIN Inactive OMEPRAZOLE 20 MG TBEC 1 PO 30 MIN BEFORE 1ST MEAL OMEPRAZOLE 20 MG TBEC 102098 OMEPRAZOLE Inactive FENOFIBRATE 145 MG TABS 1 po qd FENOFIBRATE 145 MG TABS 451903 FENOFIBRATE Inactive TRIAMCINOLONE ACETONIDE 0.1 % OINT Apply to affected areas TID for up to 2 weeks TRIAMCINOLONE ACETONIDE 0.1 % OINT 9710671 TRIAMCINOLONE ACETONIDE Inactive PREDNISONE 20 MG TAB 2 tabs daily for 3 days, 1 tab daily for 3 days, 1/2 tab daily for 2 days PREDNISONE 20 MG TAB 238717 PREDNISONE Inactive PREDNISONE 20 MG TAB 2 tabs daily for 3 days, 1 tab daily for 3 days, 1/2 tab daily for 2 days PREDNISONE 20 MG TAB 866049 PREDNISONE Inactive BACTRIM DS 800-160 MG TABS 1 po BID x 7 days BACTRIM DS 800-160 MG TABS SULFAMETHOXAZOLE-TRIMETHOPRIM Inactive Immunizations Vaccine Administration Date Value Standard Description Seasonal influenza vaccine, injectable, containing preservative, for > 3 years old (Afluria, FluLaval, Fluzone, Fluvirin, Fluarix, Agriflu(>=18 yo)) Fluzone (>3 yrs.) [[id number]] Influenza, seasonal, injectable influenza immunization (Flu Vax) has been administered 02/22/2012 influenza virus vaccine, unspecified formulation Seasonal influenza vaccine, injectable, containing preservative, for > 3 years old (Afluria, FluLaval, Fluzone, Fluvirin, Fluarix, Agriflu(>=18 yo)) Fluzone (>3 yrs.) [[id number]] Influenza, seasonal, injectable Vital Signs Date Name [...] Panel - Chemistry sodium, serum 139 mmol/L [phone]/11/27 potassium, serum 4.9 mmol/L 3.5-5.2 chloride, serum [...] Panel - Chemistry sodium, serum 139 mmol/L 005-043 7455/11/22 potassium, serum 4.3 mmol/L 3.5-5.2 chloride, serum [...] HGBA1C - Chemistry sodium, serum 142 mmol/L 554-541 0236/10/22 potassium, serum 4.9 mmol/L 3.5-5.2 chloride, serum [...] 0.30 mg/dL 0.00-1.00 cholesterol, serum 139 mg/dL 613-798 3845/10/22 triglyceride, serum, fasting 168 mg/dL 30-200 HDL cholesterol, serum 40 mg/dL 32-96 LDL cholesterol, serum 65 mg/dL 0-130 hemoglobin A1C, blood, as % of total hemoglobin 6.2 % 4.3-6.0 sodium, serum 144 mmol/L 482-708 7118/04/16 potassium, serum 4.2 mmol/L 3.5-5.2 chloride, serum [...] 0.20 mg/dL 0.00-1.00 cholesterol, serum 133 mg/dL [phone]/04/16 triglyceride, serum, fasting 142 mg/dL 30-200 HDL [...] mg/dL Encounters Code Encounter Date Provider Facility CPT-31552 Level 4 Est. Patient 09:45:25 CDT Tu Landeros MD [facility] CPT-85330 Level 4 Est. 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 Patient 14:09:06 CDT Tu Landeros MD [facility] CPT-31673 Level 3 Est. Patient 13:36:54 CDT Tu Landeros MD [facility] CPT-69716 Level 3 Est. Patient 08:59:14 CDT Tu Landeros MD [facility] CPT-35428 Level 3 Est. Patient 13:48:35 CDT Fab Morales DO [facility] CPT-95099 Level 4 Est. Patient 10:05:48 CDT Tu Landeros MD [facility] CPT-94376 Level 3 Est. Patient 13:38:42 CDT Marek BANKS [facility] CPT-74381 Level 5 Est. Patient 08:08:39 CDT Jerrica FRANCIS [facility] CPT-23782 Level 4 Est. Patient 14:23:38 CDT Tu Landeros MD [facility] CPT-48732 Level 3 Est. Patient 11:44:04 CDT Tu Landeros MD [facility] CPT-82566 Level 3 Est. 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 CPT-03861 Level 3 Est. 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 CPT-24304 Level 3 Est. Patient 12:42:49 CDT Tu Landeros MD [facility] CPT-93555 Level 3 Est. Patient 11:52:06 CDT Tu Landeros MD [facility] CPT-82004 Level 3 Est. Patient 13:58:11 CDT Tu Landeros MD [facility] CPT-11597 Level 3 Est. Patient 17:50:07 CDT Fab Morales DO [facility] CPT-04464 Level 3 Est. Patient 12:06:29 CDT Elvira Cervantes MD PhD [facility] CPT-13119 Level 3 Est. Patient 15:50:32 CDT Tu Landeros MD [facility] CPT-90761 Level 4 Est. Patient 16:08:29 CDT Tu Landeros MD [facility] CPT-61855 Level 3 Est. Patient 16:04:19 CDT Tu Landeros MD [facility] CPT-15540 Level 3 Est. 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 CPT-37449 Level 4 Est. 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 CPT-38585 Level 3 Est. 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 Procedures Code Procedure Name Date Entry Date Standard Description CPT-OV Office Visit 15:45:11 CDT CPT-000 Give Zostavax 14:09:06 CDT CPT-10720 Administration single or combination vaccine inc oral 15 :19:04 CDT CPT-60762 Zoster Vaccine (Zostavax) 15:19:04 CDT CPT-20115 Administration single or combination vaccine inc oral 20 :51:03 CDT CPT-36203 Influenza split virus > age 3 20:51:03 CDT CPT-93514 No Charge Offi Visit 14:52:03 CDT CPT-OV Office Visit 14:57:43 CDT CPT-OV Office Visit 15:22:32 CDT CPT-01274 Administration single or combination vaccine inc oral 11 :33:15 CDT CPT-28577 Influenza split virus > age 3 11:33:15 CDT
--- OUTSIDE RECORDS SUMMARY | 2018-04-25 20:07 | XMS REPORT | Clinical Summary ---
Author Author Admin, SACHI Organization [facility] Address Unknown Phone Allergies, Adverse Reactions, Alerts Allergy Name Reaction Description Start Date Severity Status Provider DANIELLE migraine h/a Critical Active Luisa HU migraine h/a Moderate No Longer Active Tu Landeros MD TRICOR rash, trouble breathing Critical Active Tu Landeros MD SULINDAC Critical Active uT Landeros MD DOXYCYCLINE Critical Active Tu Landeros [...] MD ONYCHOMYCOSIS ICD-110.1 Inactive Tu Landeros MD SCIATICA ICD-724.3 Inactive Tu Landeros MD 2012 PARESTHESIA ICD-782.0 Inactive Tu Landeros MD Medication List Medication Instructions Start Date Stop Date Generic Name NDC Status Provider Patient Instruction CIPRO 500 MG TABS 1 bid x 14 days start 09-28-13 CIPROFLOXACIN HCL 81546830064 Active [place] Active ALIGN 4 MG CAPS 1 tid PROBIOTIC PRODUCT 72405745116 Active Gustavo [place] Active BACTRIM DS 800-160 MG TABS 1 bid x 14 day start 09-28-13 SULFAMETHOXAZOLE-TRIMETHOPRIM 79128839766 Active Gustavo Norma Active GABAPENTIN 300 MG CAPS 1 tid GABAPENTIN 50569721559 Active Gustavo [place] Active SUPER B COMPLEX/VITAMIN C TABS 1 qd B COMPLEX-C 98477985613 Active [place] Active TRILIPIX 135 MG CPDR 1 q hs CHOLINE FENOFIBRATE 83932896731 Active Tu Landeros MD Active FENOFIBRATE 145 MG TABS 1 po qd FENOFIBRATE 86428844881 No Longer Active Gustavo [place] Active OMEPRAZOLE 20 MG TBEC 1 PO 30 MIN BEFORE 1ST MEAL OMEPRAZOLE 68025393663 No Longer Active Gustavo [place] Active SIMVASTATIN 40 MG TABS Take one by mouth daily SIMVASTATIN 61272606771 No Longer Active Gustavo [place] Active GABAPENTIN 100 MG CAPS 1 po bid GABAPENTIN 97292783867 Active [place] Active CARVEDILOL 12.5 MG TABS Take 1 by mouth 30 min. before first meal CARVEDILOL 46156620820 Active Gustavo [place] Active VENLAFAXINE HCL 37.5 MG TABS 1 bid VENLAFAXINE HCL 10465749854 Active [place] Active VENLAFAXINE HCL 75 MG TABS 1 po BID VENLAFAXINE HCL 85516016874 No Longer Active Gustavo Norma Active HYDROCODONE-ACETAMINOPHEN 5-325 MG TABS 1 tab by mouth every 6 hours as needed for pain HYDROCODONE-ACETAMINOPHEN 14467753691 Active Tu Landeros MD Active METFORMIN HCL 500 MG TB24 1.5 po BID METFORMIN HCL 25882343440 Active Tu Landeros MD Active CIPRO 500 MG TAB 1 tablet by mouth twice daily CIPROFLOXACIN HCL 68237124303 No Longer Active Tu Landeros MD Active VENLAFAXINE HCL 37.5 MG TABS 1 po BID VENLAFAXINE HCL 45919493416 No Longer Active Suze Corey RMA Active [employer] STOOL SOFTENER 100 MG CAPS 1 tab daily DOCUSATE SODIUM 19668097345 Active Tu Landeros MD Active LAMISIL 250 MG TAB 1 po qd TERBINAFINE HCL 85686782609 No Longer Active Tu Landeros MD Active LORTAB 5 5-500 MG TABS 1/2 to 1 tablet by mouth every 4 hours as needed for pain HYDROCODONE-ACETAMINOPHEN 05922654021 No Longer Active Tu Landeros MD Active ENALAPRIL MALEATE 20 MG TABS 1.5 po qd ENALAPRIL MALEATE 34249461327 Active Tu Landeros MD Active HYDROCODONE-ACETAMINOPHEN 5-500 MG TABS take one po Q 4-6 hours prn HYDROCODONE-ACETAMINOPHEN 96201515020 No Longer Active Tu Landeros MD Active BACTRIM DS 800-160 MG TABS 1 po BID x 7 days SULFAMETHOXAZOLE-TRIMETHOPRIM 64159579830 No Longer Active Tu Landeros MD Active VENLAFAXINE HCL 75 MG TABS 1 po BID VENLAFAXINE HCL 40073608950 No Longer Active Elvira Cervantes MD PhD Active TRAMADOL HCL 50 MG TABS 1 tablets every 6 hours as needed for pain TRAMADOL HCL 64257436757 No Longer Active Tu Landeros MD Active TRUERESULT BLOOD GLUCOSE W/DEVICE KIT use to test blood sugar tid dx: 250.00 BLOOD GLUCOSE MONITORING SUPPL 18779633698 Active Tu Landeros MD Active TRUETEST TEST STRP test blood sugar three times daily dx: 250.00 GLUCOSE BLOOD 88824885745 Active Tu Landeros MD Active ACCU-CHEK FASTCLIX LANCETS MISC Use to check bloodsugar three times daily as needed LANCETS 94655790566 No Longer Active Tu Landeros MD Active ACCU-CHEK KEYONA PLUS STRP Use for testing bloodsugars three times daily as needed GLUCOSE BLOOD 15307175000 No Longer Active Tu Landeros MD Active ACCU-CHEK KEYONA PLUS W/DEVICE KIT Use for testing bloodsugars three times daily as needed BLOOD GLUCOSE MONITORING SUPPL 61475463113 No Longer Active Tu Landeros MD Active SPIRONOLACTONE 25 MG TAB 0.5 tablet by mouth daily SPIRONOLACTONE 46799164257 No Longer Active Tu Landeros MD Active ALPRAZOLAM 0.5 MG TABS 1 tab every 6hrs as needed ALPRAZOLAM 71024273453 No Longer Active Tu Landeros MD Active B-12 100 MCG TABS Take one by mouth daily CYANOCOBALAMIN 71644365202 Active Tu Landeros MD Active AUGMENTIN 875-125 MG TAB 1 tab by mouth twice daily with food AMOXICILLIN-POT CLAVULANATE 73068771937 No Longer Active Tu Landeros MD Active PREDNISONE 20 MG TAB 2 tabs daily for 3 days, 1 tab daily for 3 days, 1/2 tab daily for 2 days PREDNISONE 63383891447 No Longer Active Tu Landeros MD Active XANAX 0.5 MG TABS 1 tablet every 6 hrs prn ALPRAZOLAM 74902501736 No Longer Active Tu Landeros MD Active PREDNISONE 20 MG TAB 2 tabs daily for 3 days, 1 tab daily for 3 days, 1/2 tab daily for 2 days PREDNISONE 04090999259 No Longer Active Tu Landeros MD Active TRIAMCINOLONE ACETONIDE 0.1 % OINT Apply to affected areas TID for up to 2 weeks TRIAMCINOLONE ACETONIDE 15296277118 No Longer Active Tu Landeros MD Active LORTAB 5 5-500 MG TABS 1/2 to 1 tablet by mouth every 4 hours as needed for pain HYDROCODONE-ACETAMINOPHEN 09736334164 No Longer Active Tu Landeros MD Active MULTIVITAMINS TABS Take one by mouth daily MULTIPLE VITAMIN 14954636902 No Longer Active Tu Landeros MD Active MELATONIN 5 MG TABS Take one by mouth daily MELATONIN 93917904724 No Longer Active Tu Landeros MD Active SOMA 350 MG TAB 1 po q 6 hours prn spasm CARISOPRODOL 38721143218 No Longer Active Tu Landeros MD Active MECLIZINE HCL 25 MG CHEW TAB 1 four times a day as needed for dizziness 08/05 MECLIZINE HCL 81339890002 No Longer Active Fab Morales DO Active ANGEL BREEZE 2 TEST DISK test tid prn GLUCOSE BLOOD 16647239420 No Longer Active Negra Scott RN Active DICLOFENAC SODIUM 50 MG TBEC 1 tablet by mouth three times a day as needed DICLOFENAC SODIUM 81061298848 Active Tu Landeros MD Active REGLAN 10 MG TAB 1 po TID PRN [place] METOCLOPRAMIDE HCL 61869463144 No Longer Active Tu Landeros MD Active METFORMIN HCL 500 MG TABS 1 PO BID METFORMIN HCL 36079409560 No Longer Active Tu Landeros MD Active AMBIEN 10 MG TAB 1 tab by mouth at bedtime as needed for sleep ZOLPIDEM TARTRATE 50231013212 No Longer Active Tu Landeros MD Active FLUOXETINE HCL 40 MG CAPS 1 po q day FLUOXETINE HCL 96029721330 No Longer Active Mayra [place] Active FISH OIL 1000 MG CAPS Take one by mouth daily OMEGA-3 FATTY ACIDS 81143188717 Active Tu Landeros MD Active GLUCOSAMINE 500 MG TABS Take 2 tab po qd GLUCOSAMINE 62775918459 Active Tu Landeros MD Active TRILIPIX 135 MG CPDR 1 po qd CHOLINE FENOFIBRATE 98087256255 No Longer Active uT Landeros MD Active ASPIRIN 81 MG CHEW TAB 1 tablet by mouth daily ASPIRIN 66508378667 Active Tu Landeros MD Active FUROSEMIDE 40 MG TAB 1 tablet by mouth daily FUROSEMIDE 95329842140 Active Tu Landeros MD Active REQUIP 2 MG TABS Take one tablet at bedtime prn ROPINIROLE HCL 90381489656 Active Tu Landeros MD Active KLOR-CON 10 10 MEQ CR-TABS TAKE 2 TABS DAILY POTASSIUM CHLORIDE 23624235679 Active Tu Landeros MD Active AMBIEN 10 MG TAB 1 tab by mouth at bedtime as needed for sleep AMBIEN 10 MG TAB 053147 ZOLPIDEM TARTRATE Inactive METFORMIN HCL 500 MG TABS 1 PO BID METFORMIN HCL 500 MG TABS 842486 METFORMIN HCL Inactive REGLAN 10 MG TAB 1 po TID PRN [place] REGLAN 10 MG TAB 068353 METOCLOPRAMIDE HCL Inactive MECLIZINE HCL 25 MG CHEW TAB 1 four times a day as needed for dizziness 08/05 MECLIZINE HCL 25 MG CHEW TAB 524391 MECLIZINE HCL Inactive SOMA 350 MG TAB 1 po q 6 hours prn spasm SOMA 350 MG TAB 874800 CARISOPRODOL Inactive MELATONIN 5 MG TABS Take one by mouth daily MELATONIN 5 MG TABS 599357 MELATONIN Inactive MULTIVITAMINS TABS Take one by mouth daily MULTIVITAMINS TABS MULTIPLE VITAMIN Inactive LORTAB 5 5-500 MG TABS 1/2 to 1 tablet by mouth every 4 hours as needed for pain LORTAB 5 5-500 MG TABS HYDROCODONE- ACETAMINOPHEN Inactive XANAX 0.5 MG TABS 1 tablet every 6 hrs prn XANAX 0.5 MG TABS 875666 ALPRAZOLAM Inactive AUGMENTIN 875-125 MG TAB 1 tab by mouth twice daily with food AUGMENTIN 875-125 MG TAB 156291 AMOXICILLIN-POT CLAVULANATE Inactive ALPRAZOLAM 0.5 MG TABS 1 tab every 6hrs as needed ALPRAZOLAM 0.5 MG TABS 850536 ALPRAZOLAM Inactive SPIRONOLACTONE 25 MG TAB 0.5 tablet by mouth daily SPIRONOLACTONE 25 MG TAB 319192 SPIRONOLACTONE Inactive ACCU-CHEK KEYONA PLUS W/DEVICE KIT Use for testing bloodsugars three times daily as needed ACCU-CHEK KEYONA PLUS W/DEVICE KIT BLOOD GLUCOSE MONITORING SUPPL Inactive ACCU-CHEK KEYONA PLUS STRP Use for testing bloodsugars three times daily as needed ACCU-CHEK KEYONA PLUS STRP GLUCOSE BLOOD Inactive ACCU-CHEK FASTCLIX LANCETS MISC Use to check bloodsugar three times daily as needed ACCU-CHEK FASTCLIX LANCETS MISC 24046200156 LANCETS Inactive TRAMADOL HCL 50 MG TABS 1 tablets every 6 hours as needed for pain TRAMADOL HCL 50 MG TABS 776072 TRAMADOL HCL Inactive VENLAFAXINE HCL 75 MG TABS 1 po BID VENLAFAXINE HCL 75 MG TABS 981249 VENLAFAXINE HCL Inactive HYDROCODONE-ACETAMINOPHEN 5-500 MG TABS take one po Q 4-6 hours prn HYDROCODONE-ACETAMINOPHEN 5-500 MG TABS HYDROCODONE- ACETAMINOPHEN Inactive LORTAB 5 5-500 MG TABS 1/2 to 1 tablet by mouth every 4 hours as needed for pain LORTAB 5 5-500 MG TABS HYDROCODONE- ACETAMINOPHEN Inactive LAMISIL 250 MG TAB 1 po qd LAMISIL 250 MG TAB 409416 TERBINAFINE HCL Inactive VENLAFAXINE HCL 37.5 MG TABS 1 po BID VENLAFAXINE HCL 37.5 MG TABS 204543 VENLAFAXINE HCL Inactive CIPRO 500 MG TAB 1 tablet by mouth twice daily CIPRO 500 MG TAB 491288 CIPROFLOXACIN HCL Inactive VENLAFAXINE HCL 75 MG TABS 1 po BID VENLAFAXINE HCL 75 MG TABS 293046 VENLAFAXINE HCL Inactive SIMVASTATIN 40 MG TABS Take one by mouth daily SIMVASTATIN 40 MG TABS 415849 SIMVASTATIN Inactive OMEPRAZOLE 20 MG TBEC 1 PO 30 MIN BEFORE 1ST MEAL OMEPRAZOLE 20 MG TBEC 892575 OMEPRAZOLE Inactive FENOFIBRATE 145 MG TABS 1 po qd FENOFIBRATE 145 MG TABS 047774 FENOFIBRATE Inactive TRIAMCINOLONE ACETONIDE 0.1 % OINT Apply to affected areas TID for up to 2 weeks TRIAMCINOLONE ACETONIDE 0.1 % OINT 3901147 TRIAMCINOLONE ACETONIDE Inactive PREDNISONE 20 MG TAB 2 tabs daily for 3 days, 1 tab daily for 3 days, 1/2 tab daily for 2 days PREDNISONE 20 MG TAB 527009 PREDNISONE Inactive PREDNISONE 20 MG TAB 2 tabs daily for 3 days, 1 tab daily for 3 days, 1/2 tab daily for 2 days PREDNISONE 20 MG TAB 992605 PREDNISONE Inactive BACTRIM DS 800-160 MG TABS 1 po BID x 7 days BACTRIM DS 800-160 MG TABS SULFAMETHOXAZOLE-TRIMETHOPRIM Inactive Immunizations Vaccine Administration Date Value Standard Description Seasonal influenza vaccine, injectable, containing preservative, for > 3 years old (Afluria, FluLaval, Fluzone, Fluvirin, Fluarix, Agriflu(>=18 yo)) Fluzone (>3 yrs.) [[id number]] Influenza, seasonal, injectable influenza immunization (Flu Vax) has been administered 02/22/2012 influenza virus vaccine, unspecified formulation Seasonal influenza vaccine, injectable, containing preservative, for > 3 years old (Afluria, FluLaval, Fluzone, Fluvirin, Fluarix, Agriflu(>=18 yo)) Fluzone (>3 yrs.) [[id number]] Influenza, seasonal, injectable Vital Signs Date Name [...] Panel - Chemistry sodium, serum 139 mmol/L 490-570 8306/11/27 potassium, serum 4.9 mmol/L 3.5-5.2 chloride, serum 104 mmol/L 98-107 carbon dioxide, venous blood 29.9 mmol/L 21.0-32.0 blood glucose 128 mg/dL 65-110 calcium, serum 9.6 mg/dL 8.5-10.1 urea nitrogen, blood 30 mg/dL 7-18 creatinine, serum 1.50 mg/dL 0.60-1.30 Lab Report: CBC W/ DIFF, CMP, TSH, PREALBUMIN - Chemistry thyroid stimulating hormone, serum 0.38 u[iU]/mL bilirubin, serum, total 0.4 mg/dL alkaline phosphatase, serum 57 U/L calcium, serum 9.3 mg/dL sodium, serum 141 mmol/L potassium, serum 3.9 mmol/L chloride, serum 104 mmol/L carbon dioxide, venous blood 28 mmol/L urea nitrogen, blood 13 mg/dL blood glucose 98 mg/dL creatinine, serum 1.20 mg/dL aspartate aminotransferase (SGOT), serum 29 U/L alanine aminotransferase (SGPT), serum 35 U/L Lab Report: CBC W/ DIFF, CMP, TSH, PREALBUMIN - Hematology leukocyte count, blood 7.9 10*3/mm3 erythrocyte (RBC) count 4.10 10*6/mm3 hemoglobin, blood 12.3 g/dL hematocrit, blood 37.9 % mean corpuscular volume, RBC 92 fL mean corpuscular hemoglobin, RBC 30.1 pg red blood cell distribution width 11.5 % platelet count 298 10*3/mm3 Lab Report: Comp. Metabolic Panel - Chemistry carbon dioxide, venous blood 28.3 mmol/L 21.0-32.0 chloride, serum 103 mmol/L 98-107 potassium, serum 4.3 mmol/L 3.5-5.2 sodium, serum 139 mmol/L 840-766 9780/11/22 urea nitrogen, blood 27 mg/dL 7-18 blood glucose 125 mg/dL 65-110 creatinine, serum 1.60 mg/dL 0.60-1.30 alanine aminotransferase (SGPT), serum 35 U/L 12-78 aspartate aminotransferase (SGOT), serum 25 U/L 15-37 alkaline phosphatase, serum 89 U/L 50-136 calcium, serum 9.2 mg/dL 8.5-10.1 bilirubin, serum, total 0.20 mg/dL 0.00-1.00 Lab Report: Comp. Metabolic Panel, Lipid Panel, HGBA1C - Chemistry sodium, serum 144 mmol/L 233-296 9107/04/16 potassium, serum 4.2 mmol/L 3.5-5.2 chloride, serum [...] 0.20 mg/dL 0.00-1.00 cholesterol, serum 133 mg/dL 485-983 4619/04/16 triglyceride, serum, fasting 142 mg/dL 30-200 HDL cholesterol, serum 38 mg/dL 32-96 LDL cholesterol, serum 67 mg/dL 0-130 hemoglobin A1C, blood, as % of total hemoglobin 7.1 % 4.3-6.0 sodium, serum 142 mmol/L 868-131 7056/10/22 potassium, serum 4.9 mmol/L 3.5-5.2 chloride, serum [...] 0.30 mg/dL 0.00-1.00 cholesterol, serum 139 mg/dL 497-449 2822/10/22 triglyceride, serum, fasting 168 mg/dL 30-200 HDL [...] mg/dL Encounters Code Encounter Date Provider Facility CPT-57677 Level 4 Est. Patient 09:45:25 CDT Tu Landeros MD [facility] CPT-91524 Level 4 Est. 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 Patient 14:09:06 CDT Tu Landeros MD [facility] CPT-64035 Level 3 Est. Patient 13:36:54 CDT Tu Landeros MD [facility] CPT-89916 Level 3 Est. Patient 08:59:14 CDT Tu Landeros MD [facility] CPT-48136 Level 3 Est. Patient 13:48:35 CDT Fab Morales DO [facility] CPT-37354 Level 4 Est. Patient 10:05:48 CDT Tu Landeros MD [facility] CPT-39473 Level 3 Est. Patient 13:38:42 CDT Marek BANKS [facility] CPT-36024 Level 5 Est. Patient 08:08:39 CDT Jerrica Hopkins TITO [facility] CPT-86220 Level 4 Est. Patient 14:23:38 CDT Tu Landeros MD [facility] CPT-75210 Level 3 Est. Patient 11:44:04 CDT Tu Landeros MD [facility] CPT-18082 Level 3 Est. 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 Patient 12:42:49 CDT Tu Landeros MD [facility] CPT-32213 Level 3 Est. Patient 11:52:06 CDT Tu Landeros MD [facility] CPT-29582 Level 3 Est. Patient 13:58:11 CDT Tu Landeros MD [facility] CPT-05895 Level 3 Est. Patient 17:50:07 CDT Fab Morales DO [facility] CPT-63933 Level 3 Est. Patient 12:06:29 CDT Elvira Cervantes MD PhD [facility] CPT-19843 Level 3 Est. Patient 15:50:32 CDT Tu Landeros MD [facility] CPT-15028 Level 4 Est. Patient 16:08:29 CDT Tu Landeros MD [facility] CPT-26102 Level 3 Est. Patient 16:04:19 CDT Tu Landeros MD [facility] CPT-79163 Level 3 Est. Patient 11:22:30 PRESIDENT AND [employer] COMM[employer]CIAL OFFICER Tu Landeros MD [facility] CPT-30949 Level 4 Est. 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 Patient 17:21:23 PRESIDENT AND [employer] COMM[employer]CIAL OFFICER Tu Landeros MD [facility] Procedures Code Procedure Name Date Entry Date Standard Description CPT-OV Office Visit 15:45:11 CDT CPT-000 Give Zostavax 14:09:06 CDT CPT-63245 Administration single or combination vaccine inc oral 15 :19:04 CDT CPT-49928 Zoster Vaccine (Zostavax) 15:19:04 CDT CPT-15549 Administration single or combination vaccine inc oral 20 :51:03 CDT CPT-81238 Influenza split virus > age 3 20:51:03 CDT CPT-46915 No Charge Offi Visit 14:52:03 CDT CPT-OV Office Visit 14:57:43 CDT CPT-OV Office Visit 15:22:32 CDT CPT-17086 Administration single or combination vaccine inc oral 11 :33:15 CDT CPT-00938 Influenza split virus > age 3 11:33:15 CDT
--- OUTSIDE RECORDS SUMMARY | 2018-04-25 20:08 | XMS REPORT | Clinical Summary ---
Author Author Admin, SACHI Organization [facility] Address Unknown Phone Allergies, Adverse Reactions, Alerts [...] x 14 days start 09-28-13 CIPROFLOXACIN HCL 66295712383 Active Tynan [place] Active ALIGN 4 MG CAPS 1 tid PROBIOTIC PRODUCT 39991629408 Active Gustavo [place] Active BACTRIM DS 800-160 MG TABS 1 bid x 14 day start 09-28-13 SULFAMETHOXAZOLE-TRIMETHOPRIM 06665749379 Active Gustavo Norma Active GABAPENTIN 300 MG CAPS 1 tid GABAPENTIN 93788233671 Active Gustavo [place] Active SUPER B COMPLEX/VITAMIN C TABS 1 qd B COMPLEX-C 28980769313 Active Tynan Norma Active TRILIPIX 135 MG CPDR 1 q hs CHOLINE FENOFIBRATE 66650666754 Active Tu Landeros MD Active FENOFIBRATE 145 MG TABS 1 po qd FENOFIBRATE 54331089675 No Longer Active Gustavo [place] Active OMEPRAZOLE 20 MG TBEC 1 PO 30 MIN BEFORE 1ST MEAL OMEPRAZOLE 28166367850 No Longer Active Gustavo [place] Active SIMVASTATIN 40 MG TABS Take one by mouth daily SIMVASTATIN 76436788090 No Longer Active Gustavo [place] Active GABAPENTIN 100 MG CAPS 1 po bid GABAPENTIN 92163114687 Active Tynan Norma Active CARVEDILOL 12.5 MG TABS Take 1 by mouth 30 min. before first meal CARVEDILOL 73597900125 Active Gustavo [place] Active VENLAFAXINE HCL 37.5 MG TABS 1 bid VENLAFAXINE HCL 87806979662 Active Gustavowin [place] Active VENLAFAXINE HCL 75 MG TABS 1 po BID VENLAFAXINE HCL 87907302681 No Longer Active Gustavo Norma Active HYDROCODONE-ACETAMINOPHEN 5-325 MG TABS 1 tab by mouth every 6 hours as needed for pain HYDROCODONE-ACETAMINOPHEN 49827892901 Active Tu Landeros MD Active METFORMIN HCL 500 MG TB24 1.5 po BID METFORMIN HCL 84780427500 Active Tu Landeros MD Active CIPRO 500 MG TAB 1 tablet by mouth twice daily CIPROFLOXACIN HCL 53569045784 No Longer Active Tu Landeros MD Active VENLAFAXINE HCL 37.5 MG TABS 1 po BID VENLAFAXINE HCL 65304569830 No Longer Active Suze Corey RMA Active CVS STOOL SOFTENER 100 MG CAPS 1 tab daily DOCUSATE SODIUM 80044869493 Active Tu Landeros MD Active LAMISIL 250 MG TAB 1 po qd TERBINAFINE HCL 64694221784 No Longer Active Tu Landeros MD Active LORTAB 5 5-500 MG TABS 1/2 to 1 tablet by mouth every 4 hours as needed for pain HYDROCODONE-ACETAMINOPHEN 39088463795 No Longer Active Tu Landeros MD Active ENALAPRIL MALEATE 20 MG TABS 1.5 po qd ENALAPRIL MALEATE 09540006252 Active Tu Landeros MD Active HYDROCODONE-ACETAMINOPHEN 5-500 MG TABS take one po Q 4-6 hours prn HYDROCODONE-ACETAMINOPHEN 78297327527 No Longer Active Tu Landeros MD Active BACTRIM DS 800-160 MG TABS 1 po BID x 7 days SULFAMETHOXAZOLE-TRIMETHOPRIM 53133423940 No Longer Active Tu Landeros MD Active VENLAFAXINE HCL 75 MG TABS 1 po BID VENLAFAXINE HCL 70952052717 No Longer Active Elvira Cervantes MD PhD Active TRAMADOL HCL 50 MG TABS 1 tablets every 6 hours as needed for pain TRAMADOL HCL 58168338341 No Longer Active Tu Landeros MD Active TRUERESULT BLOOD GLUCOSE W/DEVICE KIT use to test blood sugar tid dx: 250.00 BLOOD GLUCOSE MONITORING SUPPL 79197941699 Active Tu Landeros MD Active TRUETEST TEST STRP test blood sugar three times daily dx: 250.00 GLUCOSE BLOOD 90938097032 Active Tu Landeros MD Active ACCU-CHEK FASTCLIX LANCETS MISC Use to check bloodsugar three times daily as needed LANCETS 40167504777 No Longer Active Tu Landeros MD Active ACCU-CHEK KEYONA PLUS STRP Use for testing bloodsugars three times daily as needed GLUCOSE BLOOD 01833964205 No Longer Active Tu Landeros MD Active ACCU-CHEK KEYONA PLUS W/DEVICE KIT Use for testing bloodsugars three times daily as needed BLOOD GLUCOSE MONITORING SUPPL 68768152480 No Longer Active Tu Landeros MD Active SPIRONOLACTONE 25 MG TAB 0.5 tablet by mouth daily SPIRONOLACTONE 93038227644 No Longer Active Tu Landeros MD Active ALPRAZOLAM 0.5 MG TABS 1 tab every 6hrs as needed ALPRAZOLAM 08958527221 No Longer Active Tu Landeros MD Active B-12 100 MCG TABS Take one by mouth daily CYANOCOBALAMIN 52958106609 Active Tu Landeros MD Active AUGMENTIN 875-125 MG TAB 1 tab by mouth twice daily with food AMOXICILLIN-POT CLAVULANATE 17115259023 No Longer Active Tu Landeros MD Active PREDNISONE 20 MG TAB 2 tabs daily for 3 days, 1 tab daily for 3 days, 1/2 tab daily for 2 days PREDNISONE 28447330366 No Longer Active Tu Landeros MD Active XANAX 0.5 MG TABS 1 tablet every 6 hrs prn ALPRAZOLAM 55102032360 No Longer Active Tu Landeros MD Active PREDNISONE 20 MG TAB 2 tabs daily for 3 days, 1 tab daily for 3 days, 1/2 tab daily for 2 days PREDNISONE 84642963118 No Longer Active Tu Landeros MD Active TRIAMCINOLONE ACETONIDE 0.1 % OINT Apply to affected areas TID for up to 2 weeks TRIAMCINOLONE ACETONIDE 84677120162 No Longer Active Tu Landeros MD Active LORTAB 5 5-500 MG TABS 1/2 to 1 tablet by mouth every 4 hours as needed for pain HYDROCODONE-ACETAMINOPHEN 92356144567 No Longer Active Tu Landeros MD Active MULTIVITAMINS TABS Take one by mouth daily MULTIPLE VITAMIN 34649349412 No Longer Active Tu Landeros MD Active MELATONIN 5 MG TABS Take one by mouth daily MELATONIN 79462728605 No Longer Active Tu Landeros MD Active SOMA 350 MG TAB 1 po q 6 hours prn spasm CARISOPRODOL 58529319316 No Longer Active Tu Landeros MD Active MECLIZINE HCL 25 MG CHEW TAB 1 four times a day as needed for dizziness 08/05 MECLIZINE HCL 50113343581 No Longer Active Fab Morales DO Active ANGEL BREEZE 2 TEST DISK test tid prn GLUCOSE BLOOD 99117347576 No Longer Active Negra Scott RN Active DICLOFENAC SODIUM 50 MG TBEC 1 tablet by mouth three times a day as needed DICLOFENAC SODIUM 21569269951 Active Tu Landeros MD Active REGLAN 10 MG TAB 1 po TID PRN [place] METOCLOPRAMIDE HCL 77938981669 No Longer Active Tu Landeros MD Active METFORMIN HCL 500 MG TABS 1 PO BID METFORMIN HCL 89218648077 No Longer Active Tu Landeros MD Active AMBIEN 10 MG TAB 1 tab by mouth at bedtime as needed for sleep ZOLPIDEM TARTRATE 99916190559 No Longer Active Tu Landeros MD Active FLUOXETINE HCL 40 MG CAPS 1 po q day FLUOXETINE HCL 84438382913 No Longer Active Mayra [place] Active FISH OIL 1000 MG CAPS Take one by mouth daily OMEGA-3 FATTY ACIDS 86155425840 Active Tu Landeros MD Active GLUCOSAMINE 500 MG TABS Take 2 tab po qd GLUCOSAMINE 21207853141 Active Tu Landeros MD Active TRILIPIX 135 MG CPDR 1 po qd CHOLINE FENOFIBRATE 26103092146 No Longer Active Tu Landeros MD Active ASPIRIN 81 MG CHEW TAB 1 tablet by mouth daily ASPIRIN 23290747401 Active Tu Landeros MD Active FUROSEMIDE 40 MG TAB 1 tablet by mouth daily FUROSEMIDE 74533833731 Active Tu Landeros MD Active REQUIP 2 MG TABS Take one tablet at bedtime prn ROPINIROLE HCL 57670484695 Active Tu Landeros MD Active KLOR-CON 10 10 MEQ CR-TABS TAKE 2 TABS DAILY POTASSIUM CHLORIDE 14355897224 Active Tu Landeros MD Active AMBIEN 10 MG TAB 1 tab by mouth at bedtime as needed for sleep AMBIEN 10 MG TAB 672138 ZOLPIDEM TARTRATE Inactive METFORMIN HCL 500 MG TABS 1 PO BID METFORMIN HCL 500 MG TABS 798802 METFORMIN HCL Inactive REGLAN 10 MG TAB 1 po TID PRN [place] REGLAN 10 MG TAB 648376 METOCLOPRAMIDE HCL Inactive MECLIZINE HCL 25 MG CHEW TAB 1 four times a day as needed for dizziness 08/05 MECLIZINE HCL 25 MG CHEW TAB 362892 MECLIZINE HCL Inactive SOMA 350 MG TAB 1 po q 6 hours prn spasm SOMA 350 MG TAB 812894 CARISOPRODOL Inactive MELATONIN 5 MG TABS Take one by mouth daily MELATONIN 5 MG TABS 037661 MELATONIN Inactive MULTIVITAMINS TABS Take one by mouth daily MULTIVITAMINS TABS MULTIPLE VITAMIN Inactive LORTAB 5 5-500 MG TABS 1/2 to 1 tablet by mouth every 4 hours as needed for pain LORTAB 5 5-500 MG TABS HYDROCODONE- ACETAMINOPHEN Inactive XANAX 0.5 MG TABS 1 tablet every 6 hrs prn XANAX 0.5 MG TABS 267352 ALPRAZOLAM Inactive AUGMENTIN 875-125 MG TAB 1 tab by mouth twice daily with food AUGMENTIN 875-125 MG TAB 028417 AMOXICILLIN-POT CLAVULANATE Inactive ALPRAZOLAM 0.5 MG TABS 1 tab every 6hrs as needed ALPRAZOLAM 0.5 MG TABS 432209 ALPRAZOLAM Inactive SPIRONOLACTONE 25 MG TAB 0.5 tablet by mouth daily SPIRONOLACTONE 25 MG TAB 918710 SPIRONOLACTONE Inactive ACCU-CHEK KEYONA PLUS W/DEVICE KIT Use for testing bloodsugars three times daily as needed ACCU-CHEK KEYONA PLUS W/DEVICE KIT BLOOD GLUCOSE MONITORING SUPPL Inactive ACCU-CHEK KEYONA PLUS STRP Use for testing bloodsugars three times daily as needed ACCU-CHEK KEYONA PLUS STRP GLUCOSE BLOOD Inactive ACCU-CHEK FASTCLIX LANCETS MISC Use to check bloodsugar three times daily as needed ACCU-CHEK FASTCLIX LANCETS MISC 26919810949 LANCETS Inactive TRAMADOL HCL 50 MG TABS 1 tablets every 6 hours as needed for pain TRAMADOL HCL 50 MG TABS 814593 TRAMADOL HCL Inactive VENLAFAXINE HCL 75 MG TABS 1 po BID VENLAFAXINE HCL 75 MG TABS 729693 VENLAFAXINE HCL Inactive HYDROCODONE-ACETAMINOPHEN 5-500 MG TABS take one po Q 4-6 hours prn HYDROCODONE-ACETAMINOPHEN 5-500 MG TABS HYDROCODONE- ACETAMINOPHEN Inactive LORTAB 5 5-500 MG TABS 1/2 to 1 tablet by mouth every 4 hours as needed for pain LORTAB 5 5-500 MG TABS HYDROCODONE- ACETAMINOPHEN Inactive LAMISIL 250 MG TAB 1 po qd LAMISIL 250 MG TAB 630683 TERBINAFINE HCL Inactive VENLAFAXINE HCL 37.5 MG TABS 1 po BID VENLAFAXINE HCL 37.5 MG TABS 773084 VENLAFAXINE HCL Inactive CIPRO 500 MG TAB 1 tablet by mouth twice daily CIPRO 500 MG TAB 237425 CIPROFLOXACIN HCL Inactive VENLAFAXINE HCL 75 MG TABS 1 po BID VENLAFAXINE HCL 75 MG TABS 089260 VENLAFAXINE HCL Inactive SIMVASTATIN 40 MG TABS Take one by mouth daily SIMVASTATIN 40 MG TABS 780317 SIMVASTATIN Inactive OMEPRAZOLE 20 MG TBEC 1 PO 30 MIN BEFORE 1ST MEAL OMEPRAZOLE 20 MG TBEC 255729 OMEPRAZOLE Inactive FENOFIBRATE 145 MG TABS 1 po qd FENOFIBRATE 145 MG TABS 366904 FENOFIBRATE Inactive TRIAMCINOLONE ACETONIDE 0.1 % OINT Apply to affected areas TID for up to 2 weeks TRIAMCINOLONE ACETONIDE 0.1 % OINT 8916329 TRIAMCINOLONE ACETONIDE Inactive PREDNISONE 20 MG TAB 2 tabs daily for 3 days, 1 tab daily for 3 days, 1/2 tab daily for 2 days PREDNISONE 20 MG TAB 138627 PREDNISONE Inactive PREDNISONE 20 MG TAB 2 tabs daily for 3 days, 1 tab daily for 3 days, 1/2 tab daily for 2 days PREDNISONE 20 MG TAB 016646 PREDNISONE Inactive BACTRIM DS 800-160 MG TABS 1 po BID x 7 days BACTRIM DS 800-160 MG TABS SULFAMETHOXAZOLE-TRIMETHOPRIM Inactive Immunizations Vaccine Administration Date Value Standard Description Seasonal influenza vaccine, injectable, containing preservative, for > 3 years old (Afluria, FluLaval, Fluzone, Fluvirin, Fluarix, Agriflu(>=18 yo)) Fluzone (>3 yrs.) [[id number]] Influenza, seasonal, injectable influenza immunization (Flu Vax) has been administered 02/22/2012 influenza virus vaccine, unspecified formulation Seasonal influenza vaccine, injectable, containing preservative, for > 3 years old (Afluria, FluLaval, Fluzone, Fluvirin, Fluarix, Agriflu(>=18 yo)) Fluzone (>3 yrs.) [[id number]] Influenza, seasonal, injectable Vital Signs Date Name [...] Panel - Chemistry sodium, serum 139 mmol/L 579-569 0946/11/27 potassium, serum 4.9 mmol/L 3.5-5.2 chloride, serum [...] Panel - Chemistry sodium, serum 139 mmol/L 052-915 5890/11/22 potassium, serum 4.3 mmol/L 3.5-5.2 chloride, serum [...] 4.9 mmol/L 3.5-5.2 sodium, serum 142 mmol/L 412-274 0256/10/22 urea nitrogen, blood 25 mg/dL 7-18 creatinine, serum 1.30 mg/dL 0.60-1.30 alanine aminotransferase (SGPT), serum 36 U/L 12-78 aspartate aminotransferase (SGOT), serum 24 U/L 15-37 alkaline phosphatase, serum 86 U/L 50-136 calcium, serum 9.0 mg/dL 8.5-10.1 bilirubin, serum, total 0.30 mg/dL 0.00-1.00 cholesterol, serum 139 mg/dL 041-806 8520/10/22 triglyceride, serum, fasting 168 mg/dL 30-200 HDL cholesterol, serum 40 mg/dL 32-96 LDL cholesterol, serum 65 mg/dL 0-130 hemoglobin A1C, blood, as % of total hemoglobin 6.2 % 4.3-6.0 sodium, serum 144 mmol/L 758-223 2567/04/16 potassium, serum 4.2 mmol/L 3.5-5.2 chloride, serum [...] 0.20 mg/dL 0.00-1.00 cholesterol, serum 133 mg/dL 306-907 5676/04/16 triglyceride, serum, fasting 142 mg/dL 30-200 HDL [...] mg/dL Encounters Code Encounter Date Provider Facility CPT-02806 Level 4 Est. Patient 09:45:25 CDT Tu Landeros MD [facility] CPT-33008 Level 4 Est. Patient 09:05:20 LOG MANAGER Tu Landeros MD [facility] CPT-96425 Level 4 Est. Patient 14:09:06 CDT Tu Landeros MD [facility] CPT-51862 Level 3 Est. Patient 13:36:54 CDT Tu Landeros MD [facility] CPT-81041 Level 3 Est. Patient 08:59:14 CDT Tu Landeros MD [facility] CPT-18159 Level 3 Est. Patient 13:48:35 CDT Fab Morales DO [facility] CPT-61649 Level 4 Est. Patient 10:05:48 CDT Tu Landeros MD [facility] CPT-22328 Level 3 Est. Patient 13:38:42 CDT Marek BANKS [facility] CPT-97842 Level 5 Est. Patient 08:08:39 CDT Jerrica FRANCIS [facility] CPT-67767 Level 4 Est. Patient 14:23:38 CDT Tu Landeros MD [facility] CPT-91438 Level 3 Est. Patient 11:44:04 CDT Tu Landeros MD [facility] CPT-57121 Level 3 Est. Patient 11:03:20 LOG MANAGER Tu Landeros MD [facility] CPT-09725 Level 3 Est. Patient 11:03:14 LOG MANAGER Tu Landeros MD [facility] CPT-51111 Level 3 Est. Patient 12:42:49 CDT Tu Landeros MD [facility] CPT-44642 Level 3 Est. Patient 11:52:06 CDT Tu Landeros MD [facility] CPT-07434 Level 3 Est. Patient 13:58:11 CDT Tu Landeros MD [facility] CPT-22401 Level 3 Est. Patient 17:50:07 CDT Fab Morales DO [facility] CPT-27389 Level 3 Est. Patient 12:06:29 CDT Elvira Cervantes MD PhD [facility] CPT-37669 Level 3 Est. Patient 15:50:32 CDT Tu Landeros MD [facility] CPT-05240 Level 4 Est. Patient 16:08:29 CDT Tu Landeros MD [facility] CPT-36074 Level 3 Est. Patient 16:04:19 CDT Tu Landeros MD [facility] CPT-47375 Level 3 Est. Patient 11:22:30 LOG MANAGER Tu Landeros MD [facility] CPT-43409 Level 4 Est. Patient 16:24:02 LOG MANAGER Tu Landeros MD [facility] CPT-96331 Level 3 Est. Patient 17:21:23 LOG MANAGER Tu Landeros MD [facility] Procedures Code Procedure Name Date Entry Date Standard Description CPT-OV Office Visit 15:45:11 CDT CPT-000 Give Zostavax 14:09:06 CDT CPT-58304 Administration single or combination vaccine inc oral 15 :19:04 CDT CPT-49459 Zoster Vaccine (Zostavax) 15:19:04 CDT CPT-79157 Administration single or combination vaccine inc oral 20 :51:03 CDT CPT-83175 Influenza split virus > age 3 20:51:03 CDT CPT-15995 No Charge Offi Visit 14:52:03 CDT CPT-OV Office Visit 14:57:43 CDT CPT-OV Office Visit 15:22:32 CDT CPT-13071 Administration single or combination vaccine inc oral 11 :33:15 CDT CPT-67398 Influenza split virus > age 3 11:33:15 CDT
--- OUTSIDE RECORDS SUMMARY | 2018-04-25 20:10 | XMS REPORT | Clinical Summary ---
Author Author Admin, SACHI Clemons [facility] Address Unknown Phone Unavailable Allergies, Adverse Reactions, Alerts Allergy Name Reaction Description Start Date Severity Status Provider DANIELLE migraine h/a Critical Active Luisa HU migraine h/a Moderate No Longer Active Tu Landeros MD TRICOR rash, trouble breathing Critical Active uT Landeros MD SULINDAC Critical Active Tu Landeros [...] hours as needed for pain TRAMADOL HCL 70618434748 Active Tu Landeros MD Active HYDROCODONE-ACETAMINOPHEN 5-325 MG TABS 1 tab by mouth every 6 hours as needed for pain HYDROCODONE-ACETAMINOPHEN 24054768413 No Longer Active Tu Landeros MD Active OMEPRAZOLE 20 MG CPDR 1 po q a.m. OMEPRAZOLE 64648523478 Active Tu Landeros MD Active GABAPENTIN 100 MG CAPS 1 po bid GABAPENTIN 50617997994 No Longer Active Tu Landeros MD Active B-12 100 MCG TABS Take one by mouth daily CYANOCOBALAMIN 48847155531 No Longer Active Tu Landeros MD Active CIPRO 500 MG TABS 1 bid x 14 days start 09-28-13 CIPROFLOXACIN HCL 81429616306 Active Tu Landeros MD Active GABAPENTIN 100 MG CAPS by mouth twice a day GABAPENTIN 18748083410 Active Tu Landeros MD Active BACTRIM DS 800-160 MG TABS 1 bid x 14 day start 09-28-13 SULFAMETHOXAZOLE-TRIMETHOPRIM 11966374163 No Longer Active Tu Landeros MD Active SIMVASTATIN 40 MG TABS 1 tab daily at bedtime SIMVASTATIN 58594421110 Active Tu Landeros MD Active CARVEDILOL 12.5 MG TABS 1 po BID CARVEDILOL 41522277226 Active Lesli Kellogg APRN Active ALIGN 4 MG CAPS 1 tid PROBIOTIC PRODUCT 22103801204 Active JASPREET Perez Active SUPER B COMPLEX/VITAMIN C TABS 1 qd B COMPLEX-C 13346341520 Active JASPREET Perez Active TRILIPIX 135 MG CPDR 1 q hs CHOLINE FENOFIBRATE 06592723138 Active Tu Landeros MD Active FENOFIBRATE 145 MG TABS 1 po qd FENOFIBRATE 78770635939 No Longer Active JASPREET Perez Active OMEPRAZOLE 20 MG TBEC 1 PO 30 MIN BEFORE 1ST MEAL OMEPRAZOLE 60415059940 No Longer Active JASPREET Perez Active SIMVASTATIN 40 MG TABS Take one by mouth daily SIMVASTATIN 40752177646 No Longer Active JASPREET Perez Active VENLAFAXINE HCL 37.5 MG TABS 1 bid VENLAFAXINE HCL 04645215975 Active Tu Landeros MD Active VENLAFAXINE HCL 75 MG TABS 1 po BID VENLAFAXINE HCL 88243980872 No Longer Active GustavoJASPREET Archer Active METFORMIN HCL 500 MG TB24 1.5 po BID METFORMIN HCL 56486054729 Active Tu Landeros MD Active CIPRO 500 MG TAB 1 tablet by mouth twice daily CIPROFLOXACIN HCL 23849932495 No Longer Active Tu Landeros MD Active VENLAFAXINE HCL 37.5 MG TABS 1 po BID VENLAFAXINE HCL 40362236775 No Longer Active Suzebianca Nicole RMA Active [employer] STOOL SOFTENER 100 MG CAPS 1 tab daily DOCUSATE SODIUM 54911091532 Active Tu Landeros MD Active LAMISIL 250 MG TAB 1 po qd TERBINAFINE HCL 16637745140 No Longer Active Tu Landeros MD Active LORTAB 5 5-500 MG TABS 1/2 to 1 tablet by mouth every 4 hours as needed for pain HYDROCODONE-ACETAMINOPHEN 85301396824 No Longer Active Tu Landeros MD Active ENALAPRIL MALEATE 20 MG TABS 1.5 po qd ENALAPRIL MALEATE 45205299572 Active Tu Landeros MD Active HYDROCODONE-ACETAMINOPHEN 5-500 MG TABS take one po Q 4-6 hours prn HYDROCODONE-ACETAMINOPHEN 94805534103 No Longer Active Tu Landeros MD Active BACTRIM DS 800-160 MG TABS 1 po BID x 7 days SULFAMETHOXAZOLE-TRIMETHOPRIM 81575569971 No Longer Active Tu Landeros MD Active VENLAFAXINE HCL 75 MG TABS 1 po BID VENLAFAXINE HCL 03862663517 No Longer Active Elvira Cervantes MD PhD Active TRAMADOL HCL 50 MG TABS 1 tablets every 6 hours as needed for pain TRAMADOL HCL 85024546043 No Longer Active Tu Landeros MD Active TRUERESULT BLOOD GLUCOSE W/DEVICE KIT use to test blood sugar tid dx: 250.00 BLOOD GLUCOSE MONITORING SUPPL 26703804133 Active Tu Landeros MD Active TRUETEST TEST STRP test blood sugar three times daily dx: 250.00 GLUCOSE BLOOD 29860800837 Active Tu Landeros MD Active ACCU-CHEK FASTCLIX LANCETS MISC Use to check bloodsugar three times daily as needed LANCETS 63399017229 No Longer Active Tu Landeros MD Active ACCU-CHEK KEYONA PLUS STRP Use for testing bloodsugars three times daily as needed GLUCOSE BLOOD 93108622051 No Longer Active Tu Landeros MD Active ACCU-CHEK KEYONA PLUS W/DEVICE KIT Use for testing bloodsugars three times daily as needed BLOOD GLUCOSE MONITORING SUPPL 71976511084 No Longer Active Tu Landeros MD Active SPIRONOLACTONE 25 MG TAB 0.5 tablet by mouth daily SPIRONOLACTONE 43731397417 No Longer Active Tu Landeros MD Active ALPRAZOLAM 0.5 MG TABS 1 tab every 6hrs as needed ALPRAZOLAM 96910533104 No Longer Active Tu Landeros MD Active AUGMENTIN 875-125 MG TAB 1 tab by mouth twice daily with food AMOXICILLIN-POT CLAVULANATE 35482447579 No Longer Active Tu Landeros MD Active PREDNISONE 20 MG TAB 2 tabs daily for 3 days, 1 tab daily for 3 days, 1/2 tab daily for 2 days PREDNISONE 28117968460 No Longer Active Tu Landeros MD Active XANAX 0.5 MG TABS 1 tablet every 6 hrs prn ALPRAZOLAM 43850145014 No Longer Active Tu Landeros MD Active PREDNISONE 20 MG TAB 2 tabs daily for 3 days, 1 tab daily for 3 days, 1/2 tab daily for 2 days PREDNISONE 69234217948 No Longer Active Tu Landeros MD Active TRIAMCINOLONE ACETONIDE 0.1 % OINT Apply to affected areas TID for up to 2 weeks TRIAMCINOLONE ACETONIDE 04802093661 No Longer Active Tu Landeros MD Active LORTAB 5 5-500 MG TABS 1/2 to 1 tablet by mouth every 4 hours as needed for pain HYDROCODONE-ACETAMINOPHEN 10333991221 No Longer Active Tu Landeros MD Active MULTIVITAMINS TABS Take one by mouth daily MULTIPLE VITAMIN 50886413388 No Longer Active Tu Landeros MD Active MELATONIN 5 MG TABS Take one by mouth daily MELATONIN 09525956814 No Longer Active Tu Landeros MD Active SOMA 350 MG TAB 1 po q 6 hours prn spasm CARISOPRODOL 81475460467 No Longer Active Tu Landeros MD Active MECLIZINE HCL 25 MG CHEW TAB 1 four times a day as needed for dizziness 08/05 MECLIZINE HCL 59212483540 No Longer Active Fab Morales DO Active ANGEL BREEZE 2 TEST DISK test tid prn GLUCOSE BLOOD 35327306586 No Longer Active Negra Scott RN Active DICLOFENAC SODIUM 50 MG TBEC 1 tablet by mouth three times a day as needed DICLOFENAC SODIUM 79876315431 Active Tu Landeros MD Active REGLAN 10 MG TAB 1 po TID PRN [place] METOCLOPRAMIDE HCL 90001706295 No Longer Active Tu Landeros MD Active METFORMIN HCL 500 MG TABS 1 PO BID METFORMIN HCL 99071599326 No Longer Active Tu Landeros MD Active AMBIEN 10 MG TAB 1 tab by mouth at bedtime as needed for sleep ZOLPIDEM TARTRATE 11853058764 No Longer Active Tu Landeros MD Active FLUOXETINE HCL 40 MG CAPS 1 po q day FLUOXETINE HCL 27829805140 No Longer Active Mayra [facility] Active FISH OIL 1000 MG CAPS Take one by mouth daily OMEGA-3 FATTY ACIDS 07037432917 Active Tu Landeros MD Active GLUCOSAMINE 500 MG TABS Take 2 tab po qd GLUCOSAMINE 10601037270 Active Tu Landeros MD Active TRILIPIX 135 MG CPDR 1 po qd CHOLINE FENOFIBRATE 43049716278 No Longer Active Tu Landeros MD Active ASPIRIN 81 MG CHEW TAB 1 tablet by mouth daily ASPIRIN 56924292560 Active Tu Landerso MD Active FUROSEMIDE 40 MG TAB 1 tablet by mouth daily FUROSEMIDE 99663618312 Active Tu Landeros MD Active REQUIP 2 MG TABS Take one tablet at bedtime prn ROPINIROLE HCL 72127802252 Active Tu Landeros MD Active KLOR-CON 10 10 MEQ CR-TABS TAKE 2 TABS DAILY POTASSIUM CHLORIDE 95769483539 Active Lesli Kellogg GAUGE MACHINE OPERATOR Active AMBIEN 10 MG TAB 1 tab by mouth at bedtime as needed for sleep AMBIEN 10 MG TAB 772056 ZOLPIDEM TARTRATE Inactive METFORMIN HCL 500 MG TABS 1 PO BID METFORMIN HCL 500 MG TABS 388717 METFORMIN HCL Inactive REGLAN 10 MG TAB 1 po TID PRN Nausea REGLAN 10 MG TAB 237806 METOCLOPRAMIDE HCL Inactive MECLIZINE HCL 25 MG CHEW TAB 1 four times a day as needed for dizziness 08/05 MECLIZINE HCL 25 MG CHEW TAB 646337 MECLIZINE HCL Inactive SOMA 350 MG TAB 1 po q 6 hours prn spasm SOMA 350 MG TAB 613615 CARISOPRODOL Inactive MELATONIN 5 MG TABS Take one by mouth daily MELATONIN 5 MG TABS 862298 MELATONIN Inactive MULTIVITAMINS TABS Take one by mouth daily MULTIVITAMINS TABS MULTIPLE VITAMIN Inactive LORTAB 5 5-500 MG TABS 1/2 to 1 tablet by mouth every 4 hours as needed for pain LORTAB 5 5-500 MG TABS HYDROCODONE- ACETAMINOPHEN Inactive XANAX 0.5 MG TABS 1 tablet every 6 hrs prn XANAX 0.5 MG TABS 147721 ALPRAZOLAM Inactive AUGMENTIN 875-125 MG TAB 1 tab by mouth twice daily with food AUGMENTIN 875-125 MG TAB 360089 AMOXICILLIN-POT CLAVULANATE Inactive ALPRAZOLAM 0.5 MG TABS 1 tab every 6hrs as needed ALPRAZOLAM 0.5 MG TABS 972938 ALPRAZOLAM Inactive SPIRONOLACTONE 25 MG TAB 0.5 tablet by mouth daily SPIRONOLACTONE 25 MG TAB 841066 SPIRONOLACTONE Inactive ACCU-CHEK KEYONA PLUS W/DEVICE KIT Use for testing bloodsugars three times daily as needed ACCU-CHEK KEYONA PLUS W/DEVICE KIT BLOOD GLUCOSE MONITORING SUPPL Inactive ACCU-CHEK KEYONA PLUS STRP Use for testing bloodsugars three times daily as needed ACCU-CHEK KEYONA PLUS STRP GLUCOSE BLOOD Inactive ACCU-CHEK FASTCLIX LANCETS MISC Use to check bloodsugar three times daily as needed ACCU-CHEK FASTCLIX LANCETS MISC 61959644793 LANCETS Inactive TRAMADOL HCL 50 MG TABS 1 tablets every 6 hours as needed for pain TRAMADOL HCL 50 MG TABS 670101 TRAMADOL HCL Inactive VENLAFAXINE HCL 75 MG TABS 1 po BID VENLAFAXINE HCL 75 MG TABS 184514 VENLAFAXINE HCL Inactive HYDROCODONE-ACETAMINOPHEN 5-500 MG TABS take one po Q 4-6 hours prn HYDROCODONE-ACETAMINOPHEN 5-500 MG TABS HYDROCODONE- ACETAMINOPHEN Inactive LORTAB 5 5-500 MG TABS 1/2 to 1 tablet by mouth every 4 hours as needed for pain LORTAB 5 5-500 MG TABS HYDROCODONE- ACETAMINOPHEN Inactive LAMISIL 250 MG TAB 1 po qd LAMISIL 250 MG TAB 757617 TERBINAFINE HCL Inactive VENLAFAXINE HCL 37.5 MG TABS 1 po BID VENLAFAXINE HCL 37.5 MG TABS 028233 VENLAFAXINE HCL Inactive CIPRO 500 MG TAB 1 tablet by mouth twice daily CIPRO 500 MG TAB 253554 CIPROFLOXACIN HCL Inactive VENLAFAXINE HCL 75 MG TABS 1 po BID VENLAFAXINE HCL 75 MG TABS 890820 VENLAFAXINE HCL Inactive SIMVASTATIN 40 MG TABS Take one by mouth daily SIMVASTATIN 40 MG TABS 654413 SIMVASTATIN Inactive OMEPRAZOLE 20 MG TBEC 1 PO 30 MIN BEFORE 1ST MEAL OMEPRAZOLE 20 MG TBEC 051576 OMEPRAZOLE Inactive FENOFIBRATE 145 MG TABS 1 po qd FENOFIBRATE 145 MG TABS 439333 FENOFIBRATE Inactive BACTRIM DS 800-160 MG TABS 1 bid x 14 day start 09-28-13 BACTRIM DS 800-160 MG TABS SULFAMETHOXAZOLE-TRIMETHOPRIM Inactive B-12 100 MCG TABS Take one by mouth daily B-12 100 MCG TABS CYANOCOBALAMIN Inactive GABAPENTIN 100 MG CAPS 1 po bid GABAPENTIN 100 MG CAPS 052917 GABAPENTIN Inactive HYDROCODONE-ACETAMINOPHEN 5-325 MG TABS 1 tab by mouth every 6 hours as needed for pain HYDROCODONE-ACETAMINOPHEN 5-325 MG TABS 473038 HYDROCODONE-ACETAMINOPHEN Inactive TRIAMCINOLONE ACETONIDE 0.1 % OINT Apply to affected areas TID for up to 2 weeks TRIAMCINOLONE ACETONIDE 0.1 % OINT 6847197 TRIAMCINOLONE ACETONIDE Inactive PREDNISONE 20 MG TAB 2 tabs daily for 3 days, 1 tab daily for 3 days, 1/2 tab daily for 2 days PREDNISONE 20 MG TAB 848601 PREDNISONE Inactive PREDNISONE 20 MG TAB 2 tabs daily for 3 days, 1 tab daily for 3 days, 1/2 tab daily for 2 days PREDNISONE 20 MG TAB 153175 PREDNISONE Inactive BACTRIM DS 800-160 MG TABS 1 po BID x 7 days BACTRIM DS 800-160 MG TABS SULFAMETHOXAZOLE-TRIMETHOPRIM Inactive Immunizations Vaccine Administration Date Value Standard Description Seasonal influenza vaccine, injectable, containing preservative, for > 3 years old (Afluria, FluLaval, Fluzone, Fluvirin, Fluarix, Agriflu(>=18 yo)) Fluzone (>3 yrs.) [[id number]] Influenza, seasonal, injectable influenza immunization (Flu Vax) has been administered 02/22/2012 influenza virus vaccine, unspecified formulation Seasonal influenza vaccine, injectable, containing preservative, for > 3 years old (Afluria, FluLaval, Fluzone, Fluvirin, Fluarix, Agriflu(>=18 yo)) Fluzone (>3 yrs.) [[id number]] Influenza, seasonal, injectable Vital Signs Date Name [...] HGBA1C - Chemistry sodium, serum 144 mmol/L 995-913 3981/04/16 potassium, serum 4.2 mmol/L 3.5-5.2 chloride, serum [...] 0.20 mg/dL 0.00-1.00 cholesterol, serum 133 mg/dL 050-892 1534/04/16 triglyceride, serum, fasting 142 mg/dL 30-200 HDL [...] mg/dL Encounters Code Encounter Date Provider Facility CPT-06465 Level 4 Est. Patient 14:27:39 OFFICE SYSTEMS TECHNOLOGY INSTRUCTOR Tu Landeros MD [facility] CPT-72283 Level 4 Est. Patient 09:45:25 CDT Tu Landeros MD [facility] CPT-22089 Level 4 Est. Patient 09:05:20 OFFICE SYSTEMS TECHNOLOGY INSTRUCTOR Tu Landeros MD [facility] CPT-91060 Level 4 Est. Patient 14:09:06 CDT Tu L[address] MD [facility] CPT-40968 Level 3 Est. Patient 13:36:54 CDT Tu Landeros MD [facility] CPT-61350 Level 3 Est. Patient 08:59:14 CDT Tu Landeros MD [facility] CPT-82891 Level 3 Est. Patient 13:48:35 CDT Fab Morales DO [facility] CPT-21789 Level 4 Est. Patient 10:05:48 CDT Tu Landeros MD [facility] CPT-49623 Level 3 Est. Patient 13:38:[address] [facility] CPT-01620 Level 5 Est. Patient 08:08:[address] [facility] CPT-61858 Level 4 Est. Patient 14:23:38 CDT Tu Landeros MD [facility] CPT-97886 Level 3 Est. Patient 11:44:04 CDT Tu Landeros MD [facility] CPT-39570 Level 3 Est. Patient 11:03:20 OFFICE SYSTEMS TECHNOLOGY INSTRUCTOR Tu Landeros MD [facility] CPT-22763 Level 3 Est. Patient 11:03:14 OFFICE SYSTEMS TECHNOLOGY INSTRUCTOR Tu Landeros MD [facility] CPT-74671 Level 3 Est. Patient 12:42:49 CDT Tu Landeros MD [facility] CPT-32740 Level 3 Est. Patient 11:52:06 CDT Tu Landeros MD [facility] CPT-62418 Level 3 Est. Patient 13:58:11 CDT Tu Landeros MD [facility] CPT-21344 Level 3 Est. Patient 17:50:07 CDT Fab Morales DO [facility] CPT-00683 Level 3 Est. Patient 12:06:29 CDT Elvira Cervantes MD, PhD [facility] CPT-14809 Level 3 Est. Patient 15:50:32 CDT Tu Landeros MD [facility] CPT-60436 Level 4 Est. Patient 16:08:29 CDT Tu Landeros MD [facility] CPT-01415 Level 3 Est. Patient 16:04:19 CDT Tu Landeros MD [facility] CPT-10518 Level 3 Est. Patient 11:22:30 OFFICE SYSTEMS TECHNOLOGY INSTRUCTOR Tu Landeros MD [facility] CPT-04071 Level 4 Est. Patient 16:24:02 OFFICE SYSTEMS TECHNOLOGY INSTRUCTOR Tu Landeros MD [facility] CPT-32844 Level 3 Est. Patient 17:21:23 OFFICE SYSTEMS TECHNOLOGY INSTRUCTOR Tu Landeros MD [facility] Procedures Code Procedure Name Date Entry Date Standard Description CPT-OV Office Visit 15:45:11 CDT CPT-000 Give Zostavax 14:09:06 CDT CPT-20994 Administration single or combination vaccine inc oral 15 :19:04 CDT CPT-31206 Zoster Vaccine (Zostavax) 15:19:04 CDT CPT-90107 Administration single or combination vaccine inc oral 20 :51:03 CDT CPT-17322 Influenza split virus > age 3 20:51:03 CDT CPT-01032 No Charge Offi Visit 14:52:03 CDT CPT-OV Office Visit 14:57:43 CDT CPT-OV Office Visit 15:22:32 CDT CPT-10713 Administration single or combination vaccine inc oral 11 :33:15 CDT CPT-18082 Influenza split virus > age 3 11:33:15 CDT
--- OUTSIDE RECORDS SUMMARY | 2018-04-25 20:11 | XMS REPORT | Clinical Summary ---
Author Author Admin, SACHI Organization [facility] Address Unknown Phone Allergies, Adverse Reactions, [...] x 14 days start 09-28-13 CIPROFLOXACIN HCL 97672180973 Active Brixey Farner Active ALIGN 4 MG CAPS 1 tid PROBIOTIC PRODUCT 01855021718 Active Gustavo Farner Active BACTRIM DS 800-160 MG TABS 1 bid x 14 day start 09-28-13 SULFAMETHOXAZOLE-TRIMETHOPRIM 16684382026 Active Gustavo Norma Active GABAPENTIN 300 MG CAPS 1 tid GABAPENTIN 96708951446 Active Gustavo Farner Active SUPER B COMPLEX/VITAMIN C TABS 1 qd B COMPLEX-C 03226415921 Active Brixey Norma Active TRILIPIX 135 MG CPDR 1 q hs CHOLINE FENOFIBRATE 68901094352 Active Tu Landeros MD Active FENOFIBRATE 145 MG TABS 1 po qd FENOFIBRATE 07121132172 No Longer Active Gustavo Hoffeau Active OMEPRAZOLE 20 MG TBEC 1 PO 30 MIN BEFORE 1ST MEAL OMEPRAZOLE 84479488867 No Longer Active Gustavo Green Active SIMVASTATIN 40 MG TABS Take one by mouth daily SIMVASTATIN 06281470143 No Longer Active Gustavo Hoffeau Active GABAPENTIN 100 MG CAPS 1 po bid GABAPENTIN 54762049110 Active Brixey Norma Active CARVEDILOL 12.5 MG TABS Take 1 by mouth 30 min. before first meal CARVEDILOL 15671610977 Active Gustavo Bermeou Active VENLAFAXINE HCL 37.5 MG TABS 1 bid VENLAFAXINE HCL 75358207963 Active Gustavowin Bermeou Active VENLAFAXINE HCL 75 MG TABS 1 po BID VENLAFAXINE HCL 40742803625 No Longer Active Gustavo Norma Active HYDROCODONE-ACETAMINOPHEN 5-325 MG TABS 1 tab by mouth every 6 hours as needed for pain HYDROCODONE-ACETAMINOPHEN 51383296094 Active Tu Landeros MD Active METFORMIN HCL 500 MG TB24 1.5 po BID METFORMIN HCL 94038786033 Active Tu Landeros MD Active CIPRO 500 MG TAB 1 tablet by mouth twice daily CIPROFLOXACIN HCL 20437338783 No Longer Active Tu Landeros MD Active VENLAFAXINE HCL 37.5 MG TABS 1 po BID VENLAFAXINE HCL 05035884431 No Longer Active Suze Corey RMA Active CVS STOOL SOFTENER 100 MG CAPS 1 tab daily DOCUSATE SODIUM 03611102654 Active Tu Landeros MD Active LAMISIL 250 MG TAB 1 po qd TERBINAFINE HCL 71696290645 No Longer Active Tu Landeros MD Active LORTAB 5 5-500 MG TABS 1/2 to 1 tablet by mouth every 4 hours as needed for pain HYDROCODONE-ACETAMINOPHEN 93515780911 No Longer Active Tu Landeros MD Active ENALAPRIL MALEATE 20 MG TABS 1.5 po qd ENALAPRIL MALEATE 63707094619 Active Tu Landeros MD Active HYDROCODONE-ACETAMINOPHEN 5-500 MG TABS take one po Q 4-6 hours prn HYDROCODONE-ACETAMINOPHEN 76453936636 No Longer Active Tu Landeros MD Active BACTRIM DS 800-160 MG TABS 1 po BID x 7 days SULFAMETHOXAZOLE-TRIMETHOPRIM 60703336884 No Longer Active Tu Landeros MD Active VENLAFAXINE HCL 75 MG TABS 1 po BID VENLAFAXINE HCL 04763476391 No Longer Active Elvira Cervantes MD PhD Active TRAMADOL HCL 50 MG TABS 1 tablets every 6 hours as needed for pain TRAMADOL HCL 95854898910 No Longer Active Tu Landeros MD Active TRUERESULT BLOOD GLUCOSE W/DEVICE KIT use to test blood sugar tid dx: 250.00 BLOOD GLUCOSE MONITORING SUPPL 28378265948 Active Tu Landeros MD Active TRUETEST TEST STRP test blood sugar three times daily dx: 250.00 GLUCOSE BLOOD 66254955137 Active Tu Landeros MD Active ACCU-CHEK FASTCLIX LANCETS MISC Use to check bloodsugar three times daily as needed LANCETS 30097008904 No Longer Active Tu Landeros MD Active ACCU-CHEK KEYONA PLUS STRP Use for testing bloodsugars three times daily as needed GLUCOSE BLOOD 00887649265 No Longer Active Tu Landeros MD Active ACCU-CHEK KEYONA PLUS W/DEVICE KIT Use for testing bloodsugars three times daily as needed BLOOD GLUCOSE MONITORING SUPPL 86745024067 No Longer Active Tu Landeros MD Active SPIRONOLACTONE 25 MG TAB 0.5 tablet by mouth daily SPIRONOLACTONE 15890069163 No Longer Active Tu Landeros MD Active ALPRAZOLAM 0.5 MG TABS 1 tab every 6hrs as needed ALPRAZOLAM 29418271822 No Longer Active Tu Landeros MD Active B-12 100 MCG TABS Take one by mouth daily CYANOCOBALAMIN 10653491186 Active Tu Landeros MD Active AUGMENTIN 875-125 MG TAB 1 tab by mouth twice daily with food AMOXICILLIN-POT CLAVULANATE 58767664714 No Longer Active Tu Landeros MD Active PREDNISONE 20 MG TAB 2 tabs daily for 3 days, 1 tab daily for 3 days, 1/2 tab daily for 2 days PREDNISONE 60200589746 No Longer Active Tu Landeros MD Active XANAX 0.5 MG TABS 1 tablet every 6 hrs prn ALPRAZOLAM 21046594000 No Longer Active Tu Landeros MD Active PREDNISONE 20 MG TAB 2 tabs daily for 3 days, 1 tab daily for 3 days, 1/2 tab daily for 2 days PREDNISONE 41935845431 No Longer Active Tu Landeros MD Active TRIAMCINOLONE ACETONIDE 0.1 % OINT Apply to affected areas TID for up to 2 weeks TRIAMCINOLONE ACETONIDE 26864470522 No Longer Active Tu Landeros MD Active LORTAB 5 5-500 MG TABS 1/2 to 1 tablet by mouth every 4 hours as needed for pain HYDROCODONE-ACETAMINOPHEN 25776732478 No Longer Active Tu Landeros MD Active MULTIVITAMINS TABS Take one by mouth daily MULTIPLE VITAMIN 63008577279 No Longer Active Tu Landeros MD Active MELATONIN 5 MG TABS Take one by mouth daily MELATONIN 21146222098 No Longer Active Tu Landeros MD Active SOMA 350 MG TAB 1 po q 6 hours prn spasm CARISOPRODOL 28388567426 No Longer Active Tu Landeros MD Active MECLIZINE HCL 25 MG CHEW TAB 1 four times a day as needed for dizziness 08/05 MECLIZINE HCL 32155820375 No Longer Active Fab Morales DO Active ANGEL BREEZE 2 TEST DISK test tid prn GLUCOSE BLOOD 82126259790 No Longer Active Negra Scott RN Active DICLOFENAC SODIUM 50 MG TBEC 1 tablet by mouth three times a day as needed DICLOFENAC SODIUM 78290040795 Active Tu Landeros MD Active REGLAN 10 MG TAB 1 po TID PRN [place]ausea METOCLOPRAMIDE HCL 46070265712 No Longer Active Tu Landeros MD Active METFORMIN HCL 500 MG TABS 1 PO BID METFORMIN HCL 91148160440 No Longer Active Tu Landeros MD Active AMBIEN 10 MG TAB 1 tab by mouth at bedtime as needed for sleep ZOLPIDEM TARTRATE 90463063766 No Longer Active Tu Landeros MD Active FLUOXETINE HCL 40 MG CAPS 1 po q day FLUOXETINE HCL 37758693420 No Longer Active Mayra Fraziers Bottom Active FISH OIL 1000 MG CAPS Take one by mouth daily OMEGA-3 FATTY ACIDS 54166930270 Active Tu Landeros MD Active GLUCOSAMINE 500 MG TABS Take 2 tab po qd GLUCOSAMINE 63924132609 Active Tu Landeros MD Active TRILIPIX 135 MG CPDR 1 po qd CHOLINE FENOFIBRATE 91182054038 No Longer Active Tu Landeros MD Active ASPIRIN 81 MG CHEW TAB 1 tablet by mouth daily ASPIRIN 63515242327 Active Tu Landeros MD Active FUROSEMIDE 40 MG TAB 1 tablet by mouth daily FUROSEMIDE 41437139337 Active Tu Landeros MD Active REQUIP 2 MG TABS Take one tablet at bedtime prn ROPINIROLE HCL 28530483586 Active Tu Landeros MD Active KLOR-CON 10 10 MEQ CR-TABS TAKE 2 TABS DAILY POTASSIUM CHLORIDE 47901357375 Active Tu Landeros MD Active AMBIEN 10 MG TAB 1 tab by mouth at bedtime as needed for sleep AMBIEN 10 MG TAB 726700 ZOLPIDEM TARTRATE Inactive METFORMIN HCL 500 MG TABS 1 PO BID METFORMIN HCL 500 MG TABS 152884 METFORMIN HCL Inactive REGLAN 10 MG TAB 1 po TID PRN Nausea REGLAN 10 MG TAB 287381 METOCLOPRAMIDE HCL Inactive MECLIZINE HCL 25 MG CHEW TAB 1 four times a day as needed for dizziness 08/05 MECLIZINE HCL 25 MG CHEW TAB 058740 MECLIZINE HCL Inactive SOMA 350 MG TAB 1 po q 6 hours prn spasm SOMA 350 MG TAB 154506 CARISOPRODOL Inactive MELATONIN 5 MG TABS Take one by mouth daily MELATONIN 5 MG TABS 566983 MELATONIN Inactive MULTIVITAMINS TABS Take one by mouth daily MULTIVITAMINS TABS MULTIPLE VITAMIN Inactive LORTAB 5 5-500 MG TABS 1/2 to 1 tablet by mouth every 4 hours as needed for pain LORTAB 5 5-500 MG TABS HYDROCODONE- ACETAMINOPHEN Inactive XANAX 0.5 MG TABS 1 tablet every 6 hrs prn XANAX 0.5 MG TABS 015869 ALPRAZOLAM Inactive AUGMENTIN 875-125 MG TAB 1 tab by mouth twice daily with food AUGMENTIN 875-125 MG TAB 160491 AMOXICILLIN-POT CLAVULANATE Inactive ALPRAZOLAM 0.5 MG TABS 1 tab every 6hrs as needed ALPRAZOLAM 0.5 MG TABS 177503 ALPRAZOLAM Inactive SPIRONOLACTONE 25 MG TAB 0.5 tablet by mouth daily SPIRONOLACTONE 25 MG TAB 712054 SPIRONOLACTONE Inactive ACCU-CHEK KEYONA PLUS W/DEVICE KIT Use for testing bloodsugars three times daily as needed ACCU-CHEK KEYONA PLUS W/DEVICE KIT BLOOD GLUCOSE MONITORING SUPPL Inactive ACCU-CHEK KEYONA PLUS STRP Use for testing bloodsugars three times daily as needed ACCU-CHEK KEYONA PLUS STRP GLUCOSE BLOOD Inactive ACCU-CHEK FASTCLIX LANCETS MISC Use to check bloodsugar three times daily as needed ACCU-CHEK FASTCLIX LANCETS MISC 36446978557 LANCETS Inactive TRAMADOL HCL 50 MG TABS 1 tablets every 6 hours as needed for pain TRAMADOL HCL 50 MG TABS 208131 TRAMADOL HCL Inactive VENLAFAXINE HCL 75 MG TABS 1 po BID VENLAFAXINE HCL 75 MG TABS 878576 VENLAFAXINE HCL Inactive HYDROCODONE-ACETAMINOPHEN 5-500 MG TABS take one po Q 4-6 hours prn HYDROCODONE-ACETAMINOPHEN 5-500 MG TABS HYDROCODONE- ACETAMINOPHEN Inactive LORTAB 5 5-500 MG TABS 1/2 to 1 tablet by mouth every 4 hours as needed for pain LORTAB 5 5-500 MG TABS HYDROCODONE- ACETAMINOPHEN Inactive LAMISIL 250 MG TAB 1 po qd LAMISIL 250 MG TAB 695326 TERBINAFINE HCL Inactive VENLAFAXINE HCL 37.5 MG TABS 1 po BID VENLAFAXINE HCL 37.5 MG TABS 033407 VENLAFAXINE HCL Inactive CIPRO 500 MG TAB 1 tablet by mouth twice daily CIPRO 500 MG TAB 802436 CIPROFLOXACIN HCL Inactive VENLAFAXINE HCL 75 MG TABS 1 po BID VENLAFAXINE HCL 75 MG TABS 375868 VENLAFAXINE HCL Inactive SIMVASTATIN 40 MG TABS Take one by mouth daily SIMVASTATIN 40 MG TABS 298996 SIMVASTATIN Inactive OMEPRAZOLE 20 MG TBEC 1 PO 30 MIN BEFORE 1ST MEAL OMEPRAZOLE 20 MG TBEC 686038 OMEPRAZOLE Inactive FENOFIBRATE 145 MG TABS 1 po qd FENOFIBRATE 145 MG TABS 489488 FENOFIBRATE Inactive TRIAMCINOLONE ACETONIDE 0.1 % OINT Apply to affected areas TID for up to 2 weeks TRIAMCINOLONE ACETONIDE 0.1 % OINT 0027719 TRIAMCINOLONE ACETONIDE Inactive PREDNISONE 20 MG TAB 2 tabs daily for 3 days, 1 tab daily for 3 days, 1/2 tab daily for 2 days PREDNISONE 20 MG TAB 882354 PREDNISONE Inactive PREDNISONE 20 MG TAB 2 tabs daily for 3 days, 1 tab daily for 3 days, 1/2 tab daily for 2 days PREDNISONE 20 MG TAB 660277 PREDNISONE Inactive BACTRIM DS 800-160 MG TABS 1 po BID x 7 days BACTRIM DS 800-160 MG TABS SULFAMETHOXAZOLE-TRIMETHOPRIM Inactive Immunizations Vaccine Administration Date Value Standard Description Seasonal influenza vaccine, injectable, containing preservative, for > 3 years old (Afluria, FluLaval, Fluzone, Fluvirin, Fluarix, Agriflu(>=18 yo)) Fluzone (>3 yrs.) [[id number]] Influenza, seasonal, injectable influenza immunization (Flu Vax) has been administered 02/22/2012 influenza virus vaccine, unspecified formulation Seasonal influenza vaccine, injectable, containing preservative, for > 3 years old (Afluria, FluLaval, Fluzone, Fluvirin, Fluarix, Agriflu(>=18 yo)) Fluzone (>3 yrs.) [[id number]] Influenza, seasonal, injectable Vital Signs Date Name [...] Panel - Chemistry sodium, serum 139 mmol/L 485-954 9296/11/27 potassium, serum 4.9 mmol/L 3.5-5.2 chloride, serum [...] Panel - Chemistry sodium, serum 139 mmol/L 387-053 3737/11/22 potassium, serum 4.3 mmol/L 3.5-5.2 chloride, serum [...] Metabolic Panel, Lipid Panel, HGBA1C - Chemistry carbon dioxide, venous blood 31.8 mmol/L 21.0-32.0 chloride, serum 105 mmol/L 98-107 potassium, serum 4.9 mmol/L 3.5-5.2 sodium, serum 142 mmol/L 406-172 9989/10/22 blood glucose 104 mg/dL 65-110 urea nitrogen, blood 25 mg/dL 7-18 creatinine, serum 1.30 mg/dL 0.60-1.30 alanine aminotransferase (SGPT), serum 36 U/L 12-78 aspartate aminotransferase (SGOT), serum 24 U/L 15-37 alkaline phosphatase, serum 86 U/L 50-136 calcium, serum 9.0 mg/dL 8.5-10.1 bilirubin, serum, total 0.30 mg/dL 0.00-1.00 cholesterol, serum 139 mg/dL 046-534 8196/10/22 triglyceride, serum, fasting 168 mg/dL 30-200 HDL cholesterol, serum 40 mg/dL 32-96 LDL cholesterol, serum 65 mg/dL 0-130 hemoglobin A1C, blood, as % of total hemoglobin 6.2 % 4.3-6.0 sodium, serum 144 mmol/L 963-942 1167/04/16 potassium, serum 4.2 mmol/L 3.5-5.2 chloride, serum [...] 0.20 mg/dL 0.00-1.00 cholesterol, serum 133 mg/dL 472-816 5003/04/16 triglyceride, serum, fasting 142 mg/dL 30-200 HDL [...] mg/dL Encounters Code Encounter Date Provider Facility CPT-86638 Level 4 Est. Patient 09:45:25 CDT Tu Landeros MD [facility] CPT-36735 Level 4 Est. 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 [place] CPT-42178 Level 4 Est. Patient 14:09:06 CDT Tu Landeros MD [facility] CPT-39691 Level 3 Est. Patient 13:36:54 CDT Tu Landeros MD [facility] CPT-72551 Level 3 Est. Patient 08:59:14 CDT Tu Landeros MD [facility] [place] CPT-32719 Level 3 Est. Patient 13:48:35 CDT Fab Morales DO [facility] CPT-93275 Level 4 Est. Patient 10:05:48 CDT Tu Landeros MD [facility] CPT-64845 Level 3 Est. Patient 13:38:42 CDT Marek BANKS [facility] CPT-64901 Level 5 Est. Patient 08:08:39 CDT Jerrica Hopkins TITO [facility] CPT-33871 Level 4 Est. Patient 14:23:38 CDT Tu Landeros MD [facility] CPT-16230 Level 3 Est. Patient 11:44:04 CDT Tu Landeros MD [facility] CPT-94128 Level 3 Est. 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 Patient 12:42:49 CDT Tu Landeros MD [facility] CPT-88567 Level 3 Est. Patient 11:52:06 CDT Tu Landeros MD [facility] CPT-81619 Level 3 Est. Patient 13:58:11 CDT Tu Landeros MD [facility] CPT-99922 Level 3 Est. Patient 17:50:07 CDT Fab Morales DO [facility] CPT-57681 Level 3 Est. Patient 12:06:29 CDT Elvira Cervantes MD PhD [facility] CPT-66615 Level 3 Est. Patient 15:50:32 CDT Tu Landeros MD [facility] CPT-88450 Level 4 Est. Patient 16:08:29 CDT Tu Landeros MD [facility] CPT-86794 Level 3 Est. Patient 16:04:19 CDT Tu Landeros MD [facility] CPT-18668 Level 3 Est. 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 Patient 17:21:23 [employer] DEVELOPER Tu Landeros MD [facility] Procedures Code Procedure Name Date Entry Date Standard Description CPT-OV Office Visit 15:45:11 CDT CPT-000 Give Zostavax 14:09:06 CDT CPT-07660 Administration single or combination vaccine inc oral 15 :19:04 CDT CPT-70863 Zoster Vaccine (Zostavax) 15:19:04 CDT CPT-76451 Administration single or combination vaccine inc oral 20 :51:03 CDT CPT-83469 Influenza split virus > age 3 20:51:03 CDT CPT-91980 No Charge Offi Visit 14:52:03 CDT CPT-OV Office Visit 14:57:43 CDT CPT-OV Office Visit 15:22:32 CDT CPT-08736 Administration single or combination vaccine inc oral 11 :33:15 CDT CPT-22207 Influenza split virus > age 3 11:33:15 CDT
--- OUTSIDE RECORDS SUMMARY | 2018-04-25 20:12 | XMS REPORT | Clinical Summary ---
Author Author Admin, SACHI Organization [facility] Address Unknown Phone Allergies, Adverse [...] of nail Gastroesophageal reflux disease 530.81 Active uT Landeros MD Esophageal reflux Restless leg syndrome [...] x 14 days start 09-28-13 CIPROFLOXACIN HCL 66173363302 Active Woodruff Willard Active ALIGN 4 MG CAPS 1 tid PROBIOTIC PRODUCT 82463578420 Active Gustavo Willard Active BACTRIM DS 800-160 MG TABS 1 bid x 14 day start 09-28-13 SULFAMETHOXAZOLE-TRIMETHOPRIM 07927021891 Active Gustavo Norma Active GABAPENTIN 300 MG CAPS 1 tid GABAPENTIN 58481264686 Active Gustavo Willard Active SUPER B COMPLEX/VITAMIN C TABS 1 qd B COMPLEX-C 37800360231 Active Woodruff Norma Active TRILIPIX 135 MG CPDR 1 q hs CHOLINE FENOFIBRATE 80633807640 Active Gustavo Norma Active FENOFIBRATE 145 MG TABS 1 po qd FENOFIBRATE 38975982155 No Longer Active Gustavo Hoffeau Active OMEPRAZOLE 20 MG TBEC 1 PO 30 MIN BEFORE 1ST MEAL OMEPRAZOLE 14086786427 No Longer Active Gustavo Green Active SIMVASTATIN 40 MG TABS Take one by mouth daily SIMVASTATIN 34689249287 No Longer Active Gustavo Hoffeau Active GABAPENTIN 100 MG CAPS 1 po bid GABAPENTIN 18112370338 Active Woodruff Willard Active CARVEDILOL 12.5 MG TABS Take 1 by mouth 30 min. before first meal CARVEDILOL 59644009317 Active Gustavo Bermeou Active VENLAFAXINE HCL 37.5 MG TABS 1 bid VENLAFAXINE HCL 13736228713 Active Gustavowin Bermeou Active VENLAFAXINE HCL 75 MG TABS 1 po BID VENLAFAXINE HCL 44744541233 No Longer Active Gustavo Norma Active HYDROCODONE-ACETAMINOPHEN 5-325 MG TABS 1 tab by mouth every 6 hours as needed for pain HYDROCODONE-ACETAMINOPHEN 17646837047 Active Tu Landeros MD Active METFORMIN HCL 500 MG TB24 1.5 po BID METFORMIN HCL 90158718496 Active Tu Landeros MD Active CIPRO 500 MG TAB 1 tablet by mouth twice daily CIPROFLOXACIN HCL 29092358000 No Longer Active Tu Landeros MD Active VENLAFAXINE HCL 37.5 MG TABS 1 po BID VENLAFAXINE HCL 49368993190 No Longer Active Suze Corey RMA Active [employer] STOOL SOFTENER 100 MG CAPS 1 tab daily DOCUSATE SODIUM 34398460920 Active Tu Landeros MD Active LAMISIL 250 MG TAB 1 po qd TERBINAFINE HCL 49324440879 No Longer Active Tu Landeros MD Active LORTAB 5 5-500 MG TABS 1/2 to 1 tablet by mouth every 4 hours as needed for pain HYDROCODONE-ACETAMINOPHEN 04315333601 No Longer Active Tu Landeros MD Active ENALAPRIL MALEATE 20 MG TABS 1.5 po qd ENALAPRIL MALEATE 41181055583 Active Tu Landeros MD Active HYDROCODONE-ACETAMINOPHEN 5-500 MG TABS take one po Q 4-6 hours prn HYDROCODONE-ACETAMINOPHEN 77442874816 No Longer Active Tu Landeros MD Active BACTRIM DS 800-160 MG TABS 1 po BID x 7 days SULFAMETHOXAZOLE-TRIMETHOPRIM 25815796817 No Longer Active Tu Landeros MD Active VENLAFAXINE HCL 75 MG TABS 1 po BID VENLAFAXINE HCL 06806256603 No Longer Active Elvira Cervantes MD PhD Active TRAMADOL HCL 50 MG TABS 1 tablets every 6 hours as needed for pain TRAMADOL HCL 24737250800 No Longer Active Tu Landeros MD Active TRUERESULT BLOOD GLUCOSE W/DEVICE KIT use to test blood sugar tid dx: 250.00 BLOOD GLUCOSE MONITORING SUPPL 38705363451 Active Tu Landeros MD Active TRUETEST TEST STRP test blood sugar three times daily dx: 250.00 GLUCOSE BLOOD 04791435971 Active Tu Landeros MD Active ACCU-CHEK FASTCLIX LANCETS MISC Use to check bloodsugar three times daily as needed LANCETS 06419998923 No Longer Active Tu Landeros MD Active ACCU-CHEK KEYONA PLUS STRP Use for testing bloodsugars three times daily as needed GLUCOSE BLOOD 78683910955 No Longer Active Tu Landeros MD Active ACCU-CHEK KEYONA PLUS W/DEVICE KIT Use for testing bloodsugars three times daily as needed BLOOD GLUCOSE MONITORING SUPPL 91481960565 No Longer Active Tu Landeros MD Active SPIRONOLACTONE 25 MG TAB 0.5 tablet by mouth daily SPIRONOLACTONE 80786252023 No Longer Active Tu Landeros MD Active ALPRAZOLAM 0.5 MG TABS 1 tab every 6hrs as needed ALPRAZOLAM 67465029705 No Longer Active Tu Landeros MD Active B-12 100 MCG TABS Take one by mouth daily CYANOCOBALAMIN 13829422060 Active Tu Landeros MD Active AUGMENTIN 875-125 MG TAB 1 tab by mouth twice daily with food AMOXICILLIN-POT CLAVULANATE 93957957009 No Longer Active Tu Landeros MD Active PREDNISONE 20 MG TAB 2 tabs daily for 3 days, 1 tab daily for 3 days, 1/2 tab daily for 2 days PREDNISONE 44389937518 No Longer Active Tu Landeros MD Active XANAX 0.5 MG TABS 1 tablet every 6 hrs prn ALPRAZOLAM 92321838892 No Longer Active Tu Landeros MD Active PREDNISONE 20 MG TAB 2 tabs daily for 3 days, 1 tab daily for 3 days, 1/2 tab daily for 2 days PREDNISONE 91250022800 No Longer Active Tu Landeros MD Active TRIAMCINOLONE ACETONIDE 0.1 % OINT Apply to affected areas TID for up to 2 weeks TRIAMCINOLONE ACETONIDE 89647451592 No Longer Active Tu Landeros MD Active LORTAB 5 5-500 MG TABS 1/2 to 1 tablet by mouth every 4 hours as needed for pain HYDROCODONE-ACETAMINOPHEN 28367605925 No Longer Active Tu Landeros MD Active MULTIVITAMINS TABS Take one by mouth daily MULTIPLE VITAMIN 84326790112 No Longer Active Tu Landeros MD Active MELATONIN 5 MG TABS Take one by mouth daily MELATONIN 78298238926 No Longer Active Tu Landeros MD Active SOMA 350 MG TAB 1 po q 6 hours prn spasm CARISOPRODOL 86522251825 No Longer Active Tu Landeros MD Active MECLIZINE HCL 25 MG CHEW TAB 1 four times a day as needed for dizziness 08/05 MECLIZINE HCL 36925618850 No Longer Active Fab Morales DO Active ANGEL BREEZE 2 TEST DISK test tid prn GLUCOSE BLOOD 99446295740 No Longer Active Negra Scott RN Active DICLOFENAC SODIUM 50 MG TBEC 1 tablet by mouth three times a day as needed DICLOFENAC SODIUM 75999317274 Active Tu Landeros MD Active REGLAN 10 MG TAB 1 po TID PRN [place] METOCLOPRAMIDE HCL 35697279410 No Longer Active Tu Landeros MD Active METFORMIN HCL 500 MG TABS 1 PO BID METFORMIN HCL 10761118904 No Longer Active Tu Landeros MD Active AMBIEN 10 MG TAB 1 tab by mouth at bedtime as needed for sleep ZOLPIDEM TARTRATE 11151540945 No Longer Active Tu Landeros MD Active FLUOXETINE HCL 40 MG CAPS 1 po q day FLUOXETINE HCL 63138843590 No Longer Active Mayra Orient Active FISH OIL 1000 MG CAPS Take one by mouth daily OMEGA-3 FATTY ACIDS 77350997200 Active Tu Landeros MD Active GLUCOSAMINE 500 MG TABS Take 2 tab po qd GLUCOSAMINE 27252154522 Active Tu Landeros MD Active TRILIPIX 135 MG CPDR 1 po qd CHOLINE FENOFIBRATE 01832529635 No Longer Active Tu Landeros MD Active ASPIRIN 81 MG CHEW TAB 1 tablet by mouth daily ASPIRIN 22295953610 Active Tu Landeros MD Active FUROSEMIDE 40 MG TAB 1 tablet by mouth daily FUROSEMIDE 48079184560 Active Tu Landeros MD Active REQUIP 2 MG TABS Take one tablet at bedtime prn ROPINIROLE HCL 25969728526 Active Tu Landeros MD Active KLOR-CON 10 10 MEQ CR-TABS TAKE 2 TABS DAILY POTASSIUM CHLORIDE 11366121012 Active Tu Landeros MD Active AMBIEN 10 MG TAB 1 tab by mouth at bedtime as needed for sleep AMBIEN 10 MG TAB 759437 ZOLPIDEM TARTRATE Inactive METFORMIN HCL 500 MG TABS 1 PO BID METFORMIN HCL 500 MG TABS 083340 METFORMIN HCL Inactive REGLAN 10 MG TAB 1 po TID PRN Nausea REGLAN 10 MG TAB 794706 METOCLOPRAMIDE HCL Inactive MECLIZINE HCL 25 MG CHEW TAB 1 four times a day as needed for dizziness 08/05 MECLIZINE HCL 25 MG CHEW TAB 764262 MECLIZINE HCL Inactive SOMA 350 MG TAB 1 po q 6 hours prn spasm SOMA 350 MG TAB 971135 CARISOPRODOL Inactive MELATONIN 5 MG TABS Take one by mouth daily MELATONIN 5 MG TABS 877837 MELATONIN Inactive MULTIVITAMINS TABS Take one by mouth daily MULTIVITAMINS TABS MULTIPLE VITAMIN Inactive LORTAB 5 5-500 MG TABS 1/2 to 1 tablet by mouth every 4 hours as needed for pain LORTAB 5 5-500 MG TABS HYDROCODONE- ACETAMINOPHEN Inactive XANAX 0.5 MG TABS 1 tablet every 6 hrs prn XANAX 0.5 MG TABS 880845 ALPRAZOLAM Inactive AUGMENTIN 875-125 MG TAB 1 tab by mouth twice daily with food AUGMENTIN 875-125 MG TAB 063027 AMOXICILLIN-POT CLAVULANATE Inactive ALPRAZOLAM 0.5 MG TABS 1 tab every 6hrs as needed ALPRAZOLAM 0.5 MG TABS 039345 ALPRAZOLAM Inactive SPIRONOLACTONE 25 MG TAB 0.5 tablet by mouth daily SPIRONOLACTONE 25 MG TAB 830595 SPIRONOLACTONE Inactive ACCU-CHEK KEYONA PLUS W/DEVICE KIT Use for testing bloodsugars three times daily as needed ACCU-CHEK KEYONA PLUS W/DEVICE KIT BLOOD GLUCOSE MONITORING SUPPL Inactive ACCU-CHEK KEYONA PLUS STRP Use for testing bloodsugars three times daily as needed ACCU-CHEK KEYONA PLUS STRP GLUCOSE BLOOD Inactive ACCU-CHEK FASTCLIX LANCETS MISC Use to check bloodsugar three times daily as needed ACCU-CHEK FASTCLIX LANCETS MISC 71318056192 LANCETS Inactive TRAMADOL HCL 50 MG TABS 1 tablets every 6 hours as needed for pain TRAMADOL HCL 50 MG TABS 410112 TRAMADOL HCL Inactive VENLAFAXINE HCL 75 MG TABS 1 po BID VENLAFAXINE HCL 75 MG TABS 808706 VENLAFAXINE HCL Inactive HYDROCODONE-ACETAMINOPHEN 5-500 MG TABS take one po Q 4-6 hours prn HYDROCODONE-ACETAMINOPHEN 5-500 MG TABS 514058 HYDROCODONE- ACETAMINOPHEN Inactive LORTAB 5 5-500 MG TABS 1/2 to 1 tablet by mouth every 4 hours as needed for pain LORTAB 5 5-500 MG TABS HYDROCODONE- ACETAMINOPHEN Inactive LAMISIL 250 MG TAB 1 po qd LAMISIL 250 MG TAB 427639 TERBINAFINE HCL Inactive VENLAFAXINE HCL 37.5 MG TABS 1 po BID VENLAFAXINE HCL 37.5 MG TABS 792910 VENLAFAXINE HCL Inactive CIPRO 500 MG TAB 1 tablet by mouth twice daily CIPRO 500 MG TAB 199587 CIPROFLOXACIN HCL Inactive VENLAFAXINE HCL 75 MG TABS 1 po BID VENLAFAXINE HCL 75 MG TABS 639408 VENLAFAXINE HCL Inactive SIMVASTATIN 40 MG TABS Take one by mouth daily SIMVASTATIN 40 MG TABS 372698 SIMVASTATIN Inactive OMEPRAZOLE 20 MG TBEC 1 PO 30 MIN BEFORE 1ST MEAL OMEPRAZOLE 20 MG TBEC 563398 OMEPRAZOLE Inactive FENOFIBRATE 145 MG TABS 1 po qd FENOFIBRATE 145 MG TABS 537088 FENOFIBRATE Inactive TRIAMCINOLONE ACETONIDE 0.1 % OINT Apply to affected areas TID for up to 2 weeks TRIAMCINOLONE ACETONIDE 0.1 % OINT 9350357 TRIAMCINOLONE ACETONIDE Inactive PREDNISONE 20 MG TAB 2 tabs daily for 3 days, 1 tab daily for 3 days, 1/2 tab daily for 2 days PREDNISONE 20 MG TAB 771954 PREDNISONE Inactive PREDNISONE 20 MG TAB 2 tabs daily for 3 days, 1 tab daily for 3 days, 1/2 tab daily for 2 days PREDNISONE 20 MG TAB 008485 PREDNISONE Inactive BACTRIM DS 800-160 MG TABS 1 po BID x 7 days BACTRIM DS 800-160 MG TABS SULFAMETHOXAZOLE-TRIMETHOPRIM Inactive Immunizations Vaccine Administration Date Value Standard Description Seasonal influenza vaccine, injectable, containing preservative, for > 3 years old (Afluria, FluLaval, Fluzone, Fluvirin, Fluarix, Agriflu(>=18 yo)) Fluzone (>3 yrs.) [[id number]] Influenza, seasonal, injectable influenza immunization (Flu Vax) has been administered 02/22/2012 influenza virus vaccine, unspecified formulation Seasonal influenza vaccine, injectable, containing preservative, for > 3 years old (Afluria, FluLaval, Fluzone, Fluvirin, Fluarix, Agriflu(>=18 yo)) Fluzone (>3 yrs.) [[id number]] Influenza, seasonal, injectable Vital Signs Date Name [...] Panel - Chemistry sodium, serum 139 mmol/L 844-121 5963/11/27 potassium, serum 4.9 mmol/L 3.5-5.2 chloride, serum [...] Panel - Chemistry sodium, serum 139 mmol/L 875-223 8247/11/22 potassium, serum 4.3 mmol/L 3.5-5.2 chloride, serum [...] 4.2 mmol/L 3.5-5.2 sodium, serum 144 mmol/L 848-258 0376/04/16 urea nitrogen, blood 22 mg/dL 7-18 creatinine, serum 1.10 mg/dL 0.60-1.30 alanine aminotransferase (SGPT), serum 21 U/L 12-78 aspartate aminotransferase (SGOT), serum 18 U/L 15-37 alkaline phosphatase, serum 84 U/L 50-136 calcium, serum 8.9 mg/dL 8.5-10.1 bilirubin, serum, total 0.20 mg/dL 0.00-1.00 cholesterol, serum 133 mg/dL 653-504 0321/04/16 triglyceride, serum, fasting 142 mg/dL 30-200 HDL cholesterol, serum 38 mg/dL 32-96 LDL cholesterol, serum 67 mg/dL 0-130 hemoglobin A1C, blood, as % of total hemoglobin 7.1 % 4.3-6.0 sodium, serum 142 mmol/L 480-829 8357/10/22 potassium, serum 4.9 mmol/L 3.5-5.2 chloride, serum [...] 0.30 mg/dL 0.00-1.00 cholesterol, serum 139 mg/dL 205-757 6239/10/22 triglyceride, serum, fasting 168 mg/dL 30-200 HDL [...] mg/dL Encounters Code Encounter Date Provider Facility CPT-44548 Level 4 Est. Patient 09:45:25 CDT Tu Landeros MD [facility] CPT-35937 Level 4 Est. 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 Patient 14:09:06 CDT Tu Landeros MD [facility] CPT-31876 Level 3 Est. Patient 13:36:54 CDT Tu Landeros MD [facility] CPT-72892 Level 3 Est. Patient 08:59:14 CDT Tu Landeros MD [facility] CPT-20740 Level 3 Est. Patient 13:48:35 CDT Fab Morales DO [facility] CPT-33846 Level 4 Est. Patient 10:05:48 CDT Tu Landeros MD [facility] CPT-34889 Level 3 Est. Patient 13:38:42 CDT Marek BANKS [facility] CPT-94582 Level 5 Est. Patient 08:08:39 CDT Jerrica FRANCIS [facility] CPT-56103 Level 4 Est. Patient 14:23:38 CDT Tu Landeros MD [facility] CPT-55908 Level 3 Est. Patient 11:44:04 CDT Tu Landeros MD [facility] CPT-02738 Level 3 Est. 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 Patient 12:42:49 CDT Tu Landeros MD [facility] CPT-07429 Level 3 Est. Patient 11:52:06 CDT Tu Landeros MD [facility] CPT-53691 Level 3 Est. Patient 13:58:11 CDT Tu Landeros MD [facility] CPT-04051 Level 3 Est. Patient 17:50:07 CDT Fab Morales DO [facility] CPT-22260 Level 3 Est. Patient 12:06:29 CDT Elvira Cervantes MD [facility] CPT-82155 Level 3 Est. Patient 15:50:32 CDT Tu Landeros MD [facility] CPT-13658 Level 4 Est. Patient 16:08:29 CDT Tu Landeros MD [facility] CPT-61706 Level 3 Est. Patient 16:04:19 CDT Tu Landeros MD [facility] CPT-46068 Level 3 Est. 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 MD [facility] Procedures Code Procedure Name Date Entry Date Standard Description CPT-OV Office Visit 15:45:11 CDT CPT-000 Give Zostavax 14:09:06 CDT CPT-22426 Administration single or combination vaccine inc oral 15 :19:04 CDT CPT-29586 Zoster Vaccine (Zostavax) 15:19:04 CDT CPT-74708 Administration single or combination vaccine inc oral 20 :51:03 CDT CPT-20461 Influenza split virus > age 3 20:51:03 CDT CPT-43345 No Charge Offi Visit 14:52:03 CDT CPT-OV Office Visit 14:57:43 CDT CPT-OV Office Visit 15:22:32 CDT CPT-14468 Administration single or combination vaccine inc oral 11 :33:15 CDT CPT-64564 Influenza split virus > age 3 11:33:15 CDT
--- OUTSIDE RECORDS SUMMARY | 2018-04-25 20:13 | XMS REPORT | Clinical Summary ---
Author Author Admin, SACHI Clemons [facility] Address Unknown Phone Unavailable Allergies, [...] sugar twice daily dx: 250.00 LANCET DEVICES 65849058547 Active Tu Landeros MD Active TRUEDRAW LANCING DEVICE MISC Test twice a day dx 250.0 LANCET DEVICES 63972834461 Active Tu Landeros MD Active TRUERESULT BLOOD GLUCOSE W/DEVICE KIT test blood sugar twice daily dx 250.00 BLOOD GLUCOSE MONITORING SUPPL 89447827069 Active Tu Landeros MD Active TRUETEST TEST INVITR STRP test blood sugar twice daily. DX 250.0 GLUCOSE BLOOD 24404890285 Active Tu Landeros MD Active EMBRACE BLOOD GLUCOSE TEST STRP test blood sugar twice daily DX 250.0 2014 GLUCOSE BLOOD 62024595223 No Longer Active Tu Landeros MD Active TRUETEST TEST STRP test blood sugar three times daily dx: 250.00 GLUCOSE BLOOD 25869881988 No Longer Active Suze VOGEL Active TRUERESULT BLOOD GLUCOSE W/DEVICE KIT use to test blood sugar tid dx: 250.00 BLOOD GLUCOSE MONITORING SUPPL 99145384152 No Longer Active Suze VOGEL Active ALIGN 4 MG CAPS 1 tid PROBIOTIC PRODUCT 21489695713 No Longer Active Shaun Sy MD Active CIPRO 500 MG TABS 1 bid x 14 days start 09-28-13 CIPROFLOXACIN HCL 31906394832 No Longer Active Shaun Sy MD Active TRAMADOL HCL 50 MG TABS 1-2 tablets every 6 hours as needed for pain TRAMADOL HCL 96352409366 Active Tu Landeros MD Active HYDROCODONE-ACETAMINOPHEN 5-325 MG TABS 1 tab by mouth every 6 hours as needed for pain HYDROCODONE-ACETAMINOPHEN 68862462161 No Longer Active Tu Landeros MD Active OMEPRAZOLE 20 MG CPDR 1 po q a.m. OMEPRAZOLE 40190026324 Active Tu Landeros MD Active GABAPENTIN 100 MG CAPS 1 po bid GABAPENTIN 97149195876 No Longer Active Tu Landeros MD Active B-12 100 MCG TABS Take one by mouth daily CYANOCOBALAMIN 81413692925 No Longer Active Tu Landeros MD Active GABAPENTIN 100 MG CAPS by mouth twice a day GABAPENTIN 35537148205 Active Tu Landeros MD Active BACTRIM DS 800-160 MG TABS 1 bid x 14 day start 09-28-13 SULFAMETHOXAZOLE-TRIMETHOPRIM 23058900036 No Longer Active Tu Landeros MD Active SIMVASTATIN 40 MG TABS 1 tab daily at bedtime SIMVASTATIN 99506338817 Active Tu Landeros MD Active CARVEDILOL 12.5 MG TABS 1 po BID CARVEDILOL 92578117817 Active Tu Landeros MD Active SUPER B COMPLEX/VITAMIN C TABS 1 qd B COMPLEX-C 13700335418 Active JASPREET Perez Active TRILIPIX 135 MG CPDR 1 q hs CHOLINE FENOFIBRATE 37593522219 Active Tu Landeros MD Active FENOFIBRATE 145 MG TABS 1 po qd FENOFIBRATE 59642400874 No Longer Active JASPREET Perez Active OMEPRAZOLE 20 MG TBEC 1 PO 30 MIN BEFORE 1ST MEAL OMEPRAZOLE 45409307642 No Longer Active JASPREET Perez Active SIMVASTATIN 40 MG TABS Take one by mouth daily SIMVASTATIN 54658501968 No Longer Active JASPREET Perez Active VENLAFAXINE HCL 37.5 MG TABS 1 bid VENLAFAXINE HCL 31880893157 Active Tu Landeros MD Active VENLAFAXINE HCL 75 MG TABS 1 po BID VENLAFAXINE HCL 96671228629 No Longer Active JASPREET Perez Active METFORMIN HCL 500 MG TB24 1.5 po BID METFORMIN HCL 05271957690 Active Tu Landeros MD Active CIPRO 500 MG TAB 1 tablet by mouth twice daily CIPROFLOXACIN HCL 50497995886 No Longer Active Tu Landeros MD Active VENLAFAXINE HCL 37.5 MG TABS 1 po BID VENLAFAXINE HCL 11340900154 No Longer Active Suze Nicole RMA Active [employer] STOOL SOFTENER 100 MG CAPS 1 tab daily DOCUSATE SODIUM 34335804258 Active Tu Landeros MD Active LAMISIL 250 MG TAB 1 po qd TERBINAFINE HCL 69264866518 No Longer Active Tu Landeros MD Active LORTAB 5 5-500 MG TABS 1/2 to 1 tablet by mouth every 4 hours as needed for pain HYDROCODONE-ACETAMINOPHEN 14711536602 No Longer Active Tu Landeros MD Active ENALAPRIL MALEATE 20 MG TABS 1.5 po qd ENALAPRIL MALEATE 94632106006 Active Tu Landeros MD Active HYDROCODONE-ACETAMINOPHEN 5-500 MG TABS take one po Q 4-6 hours prn HYDROCODONE-ACETAMINOPHEN 88246599012 No Longer Active Tu Landeros MD Active BACTRIM DS 800-160 MG TABS 1 po BID x 7 days SULFAMETHOXAZOLE-TRIMETHOPRIM 96602771925 No Longer Active Tu Landeros MD Active VENLAFAXINE HCL 75 MG TABS 1 po BID VENLAFAXINE HCL 13098988567 No Longer Active Elvira Cervantes MD PhD Active TRAMADOL HCL 50 MG TABS 1 tablets every 6 hours as needed for pain TRAMADOL HCL 92764717197 No Longer Active Tu Landeros MD Active ACCU-CHEK FASTCLIX LANCETS MISC Use to check bloodsugar three times daily as needed LANCETS 26699980159 No Longer Active Tu Landeros MD Active ACCU-CHEK KEYONA PLUS STRP Use for testing bloodsugars three times daily as needed GLUCOSE BLOOD 29172862013 No Longer Active Tu Landreos MD Active ACCU-CHEK KEYONA PLUS W/DEVICE KIT Use for testing bloodsugars three times daily as needed BLOOD GLUCOSE MONITORING SUPPL 33166135883 No Longer Active Tu Landeros MD Active SPIRONOLACTONE 25 MG TAB 0.5 tablet by mouth daily SPIRONOLACTONE 03869077027 No Longer Active Tu Landeros MD Active ALPRAZOLAM 0.5 MG TABS 1 tab every 6hrs as needed ALPRAZOLAM 75023600997 No Longer Active Tu Landeros MD Active AUGMENTIN 875-125 MG TAB 1 tab by mouth twice daily with food AMOXICILLIN-POT CLAVULANATE 65330979889 No Longer Active Tu Landeros MD Active PREDNISONE 20 MG TAB 2 tabs daily for 3 days, 1 tab daily for 3 days, 1/2 tab daily for 2 days PREDNISONE 90554788408 No Longer Active Tu Landeros MD Active XANAX 0.5 MG TABS 1 tablet every 6 hrs prn ALPRAZOLAM 69989031880 No Longer Active Tu Landeros MD Active PREDNISONE 20 MG TAB 2 tabs daily for 3 days, 1 tab daily for 3 days, 1/2 tab daily for 2 days PREDNISONE 91661265023 No Longer Active Tu Landeros MD Active TRIAMCINOLONE ACETONIDE 0.1 % OINT Apply to affected areas TID for up to 2 weeks TRIAMCINOLONE ACETONIDE 93906488496 No Longer Active Tu Landeros MD Active LORTAB 5 5-500 MG TABS 1/2 to 1 tablet by mouth every 4 hours as needed for pain HYDROCODONE-ACETAMINOPHEN 43744575086 No Longer Active Tu Landeros MD Active MULTIVITAMINS TABS Take one by mouth daily MULTIPLE VITAMIN 45290057663 No Longer Active Tu Landeros MD Active MELATONIN 5 MG TABS Take one by mouth daily MELATONIN 46140784017 No Longer Active Tu Landeros MD Active SOMA 350 MG TAB 1 po q 6 hours prn spasm CARISOPRODOL 60036921032 No Longer Active Tu Landeros MD Active MECLIZINE HCL 25 MG CHEW TAB 1 four times a day as needed for dizziness 08/05 MECLIZINE HCL 11045471897 No Longer Active Fab Morales DO Active ANGEL BREEZE 2 TEST DISK test tid prn GLUCOSE BLOOD 37204708034 No Longer Active Negra Scott RN Active DICLOFENAC SODIUM 50 MG TBEC 1 tablet by mouth three times a day as needed DICLOFENAC SODIUM 88507633529 Active Tu Landeros MD Active REGLAN 10 MG TAB 1 po TID PRN Nausea METOCLOPRAMIDE HCL 59962326058 No Longer Active Tu Landeros MD Active METFORMIN HCL 500 MG TABS 1 PO BID METFORMIN HCL 40140197008 No Longer Active Tu Landeros MD Active AMBIEN 10 MG TAB 1 tab by mouth at bedtime as needed for sleep ZOLPIDEM TARTRATE 38904415584 No Longer Active Tu Landeros MD Active FLUOXETINE HCL 40 MG CAPS 1 po q day FLUOXETINE HCL 94907538130 No Longer Active Mayra [place] Active FISH OIL 1000 MG CAPS Take one by mouth daily OMEGA-3 FATTY ACIDS 89203372097 Active Tu Landeros MD Active GLUCOSAMINE 500 MG TABS Take 2 tab po qd GLUCOSAMINE 96324164923 Active Tu Landeros MD Active TRILIPIX 135 MG CPDR 1 po qd CHOLINE FENOFIBRATE 57893117768 No Longer Active Tu Landeros MD Active ASPIRIN 81 MG CHEW TAB 1 tablet by mouth daily ASPIRIN 08723688192 Active Tu Landeros MD Active FUROSEMIDE 40 MG TAB 1 tablet by mouth daily FUROSEMIDE 06992033501 Active Tu Landeros MD Active REQUIP 2 MG TABS Take one tablet at bedtime prn ROPINIROLE HCL 47494898951 Active Tu Landeros MD Active KLOR-CON 10 10 MEQ CR-TABS TAKE 2 TABS DAILY POTASSIUM CHLORIDE 19079224832 Active Tu Landeros MD Active AMBIEN 10 MG TAB 1 tab by mouth at bedtime as needed for sleep AMBIEN 10 MG TAB 889681 ZOLPIDEM TARTRATE Inactive METFORMIN HCL 500 MG TABS 1 PO BID METFORMIN HCL 500 MG TABS 793210 METFORMIN HCL Inactive REGLAN 10 MG TAB 1 po TID PRN Nausea REGLAN 10 MG TAB 623773 METOCLOPRAMIDE HCL Inactive MECLIZINE HCL 25 MG CHEW TAB 1 four times a day as needed for dizziness 08/05 MECLIZINE HCL 25 MG CHEW TAB 831638 MECLIZINE HCL Inactive SOMA 350 MG TAB 1 po q 6 hours prn spasm SOMA 350 MG TAB 074093 CARISOPRODOL Inactive MELATONIN 5 MG TABS Take one by mouth daily MELATONIN 5 MG TABS 663285 MELATONIN Inactive MULTIVITAMINS TABS Take one by mouth daily MULTIVITAMINS TABS MULTIPLE VITAMIN Inactive LORTAB 5 5-500 MG TABS 1/2 to 1 tablet by mouth every 4 hours as needed for pain LORTAB 5 5-500 MG TABS HYDROCODONE- ACETAMINOPHEN Inactive XANAX 0.5 MG TABS 1 tablet every 6 hrs prn XANAX 0.5 MG TABS 382794 ALPRAZOLAM Inactive AUGMENTIN 875-125 MG TAB 1 tab by mouth twice daily with food AUGMENTIN 875-125 MG TAB 930213 AMOXICILLIN-POT CLAVULANATE Inactive ALPRAZOLAM 0.5 MG TABS 1 tab every 6hrs as needed ALPRAZOLAM 0.5 MG TABS 224885 ALPRAZOLAM Inactive SPIRONOLACTONE 25 MG TAB 0.5 tablet by mouth daily SPIRONOLACTONE 25 MG TAB 091521 SPIRONOLACTONE Inactive ACCU-CHEK KEYONA PLUS W/DEVICE KIT Use for testing bloodsugars three times daily as needed ACCU-CHEK KEYONA PLUS W/DEVICE KIT BLOOD GLUCOSE MONITORING SUPPL Inactive ACCU-CHEK KEYONA PLUS STRP Use for testing bloodsugars three times daily as needed ACCU-CHEK KEYONA PLUS STRP GLUCOSE BLOOD Inactive ACCU-CHEK FASTCLIX LANCETS MISC Use to check bloodsugar three times daily as needed ACCU-CHEK FASTCLIX LANCETS MISC 15629243480 LANCETS Inactive TRAMADOL HCL 50 MG TABS 1 tablets every 6 hours as needed for pain TRAMADOL HCL 50 MG TABS 357674 TRAMADOL HCL Inactive VENLAFAXINE HCL 75 MG TABS 1 po BID VENLAFAXINE HCL 75 MG TABS 638355 VENLAFAXINE HCL Inactive HYDROCODONE-ACETAMINOPHEN 5-500 MG TABS take one po Q 4-6 hours prn HYDROCODONE-ACETAMINOPHEN 5-500 MG TABS HYDROCODONE- ACETAMINOPHEN Inactive LORTAB 5 5-500 MG TABS 1/2 to 1 tablet by mouth every 4 hours as needed for pain LORTAB 5 5-500 MG TABS HYDROCODONE- ACETAMINOPHEN Inactive LAMISIL 250 MG TAB 1 po qd LAMISIL 250 MG TAB 515099 TERBINAFINE HCL Inactive VENLAFAXINE HCL 37.5 MG TABS 1 po BID VENLAFAXINE HCL 37.5 MG TABS 817637 VENLAFAXINE HCL Inactive CIPRO 500 MG TAB 1 tablet by mouth twice daily CIPRO 500 MG TAB 458028 CIPROFLOXACIN HCL Inactive VENLAFAXINE HCL 75 MG TABS 1 po BID VENLAFAXINE HCL 75 MG TABS 321442 VENLAFAXINE HCL Inactive SIMVASTATIN 40 MG TABS Take one by mouth daily SIMVASTATIN 40 MG TABS 152635 SIMVASTATIN Inactive OMEPRAZOLE 20 MG TBEC 1 PO 30 MIN BEFORE 1ST MEAL OMEPRAZOLE 20 MG TBEC 748808 OMEPRAZOLE Inactive FENOFIBRATE 145 MG TABS 1 po qd FENOFIBRATE 145 MG TABS 498820 FENOFIBRATE Inactive BACTRIM DS 800-160 MG TABS 1 bid x 14 day start 09-28-13 BACTRIM DS 800-160 MG TABS SULFAMETHOXAZOLE-TRIMETHOPRIM Inactive B-12 100 MCG TABS Take one by mouth daily B-12 100 MCG TABS CYANOCOBALAMIN Inactive GABAPENTIN 100 MG CAPS 1 po bid GABAPENTIN 100 MG CAPS 042305 GABAPENTIN Inactive HYDROCODONE-ACETAMINOPHEN 5-325 MG TABS 1 tab by mouth every 6 hours as needed for pain HYDROCODONE-ACETAMINOPHEN 5-325 MG TABS 900567 HYDROCODONE-ACETAMINOPHEN Inactive CIPRO 500 MG TABS 1 bid x 14 days start 09-28-13 CIPRO 500 MG TABS 439980 CIPROFLOXACIN HCL Inactive ALIGN 4 MG CAPS [...] 2 weeks TRIAMCINOLONE ACETONIDE 0.1 % OINT 7711285 TRIAMCINOLONE ACETONIDE Inactive PREDNISONE 20 MG TAB 2 tabs daily for 3 days, 1 tab daily for 3 days, 1/2 tab daily for 2 days PREDNISONE 20 MG TAB 487966 PREDNISONE Inactive PREDNISONE 20 MG TAB 2 tabs daily for 3 days, 1 tab daily for 3 days, 1/2 tab daily for 2 days PREDNISONE 20 MG TAB 555423 PREDNISONE Inactive BACTRIM DS 800-160 MG TABS 1 po BID x 7 days BACTRIM DS 800-160 MG TABS SULFAMETHOXAZOLE-TRIMETHOPRIM Inactive Immunizations Vaccine Administration Date Value Standard Description Seasonal influenza vaccine, injectable, containing preservative, for > 3 years old (Afluria, FluLaval, Fluzone, Fluvirin, Fluarix, Agriflu(>=18 yo)) Fluzone (>3 yrs.) [[id number]] Influenza, seasonal, injectable influenza immunization (Flu Vax) has been administered 02/22/2012 influenza virus vaccine, unspecified formulation Seasonal influenza vaccine, injectable, containing preservative, for > 3 years old (Afluria, FluLaval, Fluzone, Fluvirin, Fluarix, Agriflu(>=18 yo)) Fluzone (>3 yrs.) [[id number]] Influenza, seasonal, injectable Vital Signs Date Name [...] HGBA1C - Chemistry sodium, serum 144 mmol/L 612-122 8333/04/16 potassium, serum 4.2 mmol/L 3.5-5.2 chloride, serum [...] 0.20 mg/dL 0.00-1.00 cholesterol, serum 133 mg/dL 721-848 8147/04/16 triglyceride, serum, fasting 142 mg/dL 30-200 HDL [...] mg/dL Encounters Code Encounter Date Provider Facility CPT-32802 Level 4 Est. Patient 14:27:39 MANAGER EDITORIAL Tu Landeros MD [facility] CPT-71128 Level 4 Est. Patient 09:45:25 CDT Tu Landeros MD [facility] CPT-15136 Level 4 Est. Patient 09:05:20 MANAGER EDITORIAL Tu Landeros MD [facility] CPT-27950 Level 4 Est. Patient 14:09:06 CDT Tu Landeros MD [facility] CPT-35806 Level 3 Est. Patient 13:36:54 CDT Tu Landeros MD [facility] CPT-05193 Level 3 Est. Patient 08:59:14 CDT Tu Landeros MD [facility] CPT-43353 Level 3 Est. Patient 13:48:35 CDT Fab Morales DO [facility] CPT-05329 Level 4 Est. Patient 10:05:48 CDT Tu Landeros MD [facility] CPT-83162 Level 3 Est. Patient 13:38:42 CDT Marek BANKS [facility] CPT-47127 Level 5 Est. Patient 08:08:39 CDT Jerrica Dawsontay FRANCIS [facility] CPT-88505 Level 4 Est. Patient 14:23:38 CDT Tu Landeros MD [facility] CPT-38521 Level 3 Est. Patient 11:44:04 CDT Tu Landeros MD [facility] CPT-73895 Level 3 Est. Patient 11:03:20 MANAGER EDITORIAL Tu Landeros MD [facility] CPT-76205 Level 3 Est. Patient 11:03:14 MANAGER EDITORIAL Tu Landeros MD [facility] CPT-07018 Level 3 Est. Patient 12:42:49 CDT Tu Landeros MD [facility] CPT-80395 Level 3 Est. Patient 11:52:06 CDT Tu Landeros MD [facility] CPT-61777 Level 3 Est. Patient 13:58:11 CDT Tu Landeros MD [facility] CPT-71430 Level 3 Est. Patient 17:50:07 CDT Fab Morales DO [facility] CPT-92386 Level 3 Est. Patient 12:06:29 CDT Elvira Cervantes MD PhD [facility] CPT-26222 Level 3 Est. Patient 15:50:32 CDT Tu Landeros MD [facility] CPT-48209 Level 4 Est. Patient 16:08:29 CDT Tu Landeros MD [facility] CPT-65457 Level 3 Est. Patient 16:04:19 CDT Tu Landeros MD [facility] CPT-57978 Level 3 Est. Patient 11:22:30 MANAGER EDITORIAL Tu Landeros MD [facility] CPT-85556 Level 4 Est. Patient 16:24:02 MANAGER EDITORIAL Tu Landeros MD [facility] CPT-30265 Level 3 Est. Patient 17:21:23 MANAGER EDITORIAL Tu Landeros MD [facility] Procedures Code Procedure Name Date Entry Date Standard Description CPT-JTINJ Asp/Joint Injection 15:51:27 MANAGER EDITORIAL CPT-OV Office Visit 15:52:02 MANAGER EDITORIAL CPT-OV Office Visit 15:45:11 CDT CPT-000 Give Zostavax 14:09:06 CDT CPT-03698 Administration single or combination vaccine inc oral 15 :19:04 CDT CPT-70776 Zoster Vaccine (Zostavax) 15:19:04 CDT CPT-96448 Administration single or combination vaccine inc oral 20 :51:03 CDT CPT-64540 Influenza split virus > age 3 20:51:03 CDT CPT-17624 No Charge Offi Visit 14:52:03 CDT CPT-OV Office Visit 14:57:43 CDT CPT-OV Office Visit 15:22:32 CDT CPT-10688 Administration single or combination vaccine inc oral 11 :33:15 CDT CPT-42959 Influenza split virus > age 3 11:33:15 CDT
--- OUTSIDE RECORDS SUMMARY | 2018-04-25 20:15 | XMS REPORT | Clinical Summary ---
Author Author Admin, SACHI Clemons [facility] Address Unknown Phone Unavailable Allergies, Adverse Reactions, [...] Tu Landeros MD DIZZINESS ICD-780.4 Inactive Tu Landeors MD BENIGN PAROXYSMAL POSITIONAL VERTIGO ICD-386.11 Inactive [...] sugar twice daily dx: 250.00 LANCET DEVICES 98326561331 Active Tu Landeros MD Active TRUEDRAW LANCING DEVICE MISC Test twice a day dx 250.0 LANCET DEVICES 01121980365 Active Tu Landeros MD Active TRUERESULT BLOOD GLUCOSE W/DEVICE KIT test blood sugar twice daily dx 250.00 BLOOD GLUCOSE MONITORING SUPPL 32165363969 Active Tu Landeros MD Active TRUETEST TEST INVITR STRP test blood sugar twice daily. DX 250.0 GLUCOSE BLOOD 90671492085 Active Tu Landeros MD Active EMBRACE BLOOD GLUCOSE TEST STRP test blood sugar twice daily DX 250.0 2014 GLUCOSE BLOOD 92041042374 No Longer Active Tu Landeros MD Active TRUETEST TEST STRP test blood sugar three times daily dx: 250.00 GLUCOSE BLOOD 23506734115 No Longer Active Suzebianca VOGEL Active TRUERESULT BLOOD GLUCOSE W/DEVICE KIT use to test blood sugar tid dx: 250.00 BLOOD GLUCOSE MONITORING SUPPL 84376692720 No Longer Active Suze Corey RMA Active ALIGN 4 MG CAPS 1 tid PROBIOTIC PRODUCT 26301820170 No Longer Active Shaun Sy MD Active CIPRO 500 MG TABS 1 bid x 14 days start 5-01-04 CIPROFLOXACIN HCL 99174812494 No Longer Active Shaun Sy MD Active TRAMADOL HCL 50 MG TABS 1-2 tablets every 6 hours as needed for pain TRAMADOL HCL 35033120455 Active Tu Landeros MD Active HYDROCODONE-ACETAMINOPHEN 5-325 MG TABS 1 tab by mouth every 6 hours as needed for pain HYDROCODONE-ACETAMINOPHEN 55166479847 No Longer Active Tu Landeros MD Active OMEPRAZOLE 20 MG CPDR 1 po q a.m. OMEPRAZOLE 40148189000 Active Tu Landeros MD Active GABAPENTIN 100 MG CAPS 1 po bid GABAPENTIN 32484019510 No Longer Active Tu Landeros MD Active B-12 100 MCG TABS Take one by mouth daily CYANOCOBALAMIN 17801358163 No Longer Active Tu Landeros MD Active GABAPENTIN 100 MG CAPS by mouth twice a day GABAPENTIN 40035901658 Active Tu Landeros MD Active BACTRIM DS 800-160 MG TABS 1 bid x 14 day start 09-28-13 SULFAMETHOXAZOLE-TRIMETHOPRIM 31693530972 No Longer Active Tu Landeros MD Active SIMVASTATIN 40 MG TABS 1 tab daily at bedtime SIMVASTATIN 93572256702 Active Tu Landeros MD Active CARVEDILOL 12.5 MG TABS 1 po BID CARVEDILOL 91048072283 Active Tu Landeros MD Active SUPER B COMPLEX/VITAMIN C TABS 1 qd B COMPLEX-C 82437284749 Active JASPREET Perez Active TRILIPIX 135 MG CPDR 1 q hs CHOLINE FENOFIBRATE 82512259468 Active Tu Landeros MD Active FENOFIBRATE 145 MG TABS 1 po qd FENOFIBRATE 62853122931 No Longer Active JASPREET Perez Active OMEPRAZOLE 20 MG TBEC 1 PO 30 MIN BEFORE 1ST MEAL OMEPRAZOLE 95503600377 No Longer Active JASPREET Perez Active SIMVASTATIN 40 MG TABS Take one by mouth daily SIMVASTATIN 16728759082 No Longer Active JASPREET Perez Active VENLAFAXINE HCL 37.5 MG TABS 1 bid VENLAFAXINE HCL 33601787939 Active Tu Landeros MD Active VENLAFAXINE HCL 75 MG TABS 1 po BID VENLAFAXINE HCL 76383105164 No Longer Active JASPREET Perez Active METFORMIN HCL 500 MG TB24 1.5 po BID METFORMIN HCL 57063302587 Active Tu Landeros MD Active CIPRO 500 MG TAB 1 tablet by mouth twice daily CIPROFLOXACIN HCL 41082349489 No Longer Active Tu Landeros MD Active VENLAFAXINE HCL 37.5 MG TABS 1 po BID VENLAFAXINE HCL 09849919282 No Longer Active Suzebianca Nicole RMA Active CVS STOOL SOFTENER 100 MG CAPS 1 tab daily DOCUSATE SODIUM 23515660734 Active Tu Landeros MD Active LAMISIL 250 MG TAB 1 po qd TERBINAFINE HCL 48515575477 No Longer Active Tu Landeros MD Active LORTAB 5 5-500 MG TABS 1/2 to 1 tablet by mouth every 4 hours as needed for pain HYDROCODONE-ACETAMINOPHEN 54682209225 No Longer Active Tu Landeros MD Active ENALAPRIL MALEATE 20 MG TABS 1.5 po qd ENALAPRIL MALEATE 12266173604 Active Tu Landeros MD Active HYDROCODONE-ACETAMINOPHEN 5-500 MG TABS take one po Q 4-6 hours prn HYDROCODONE-ACETAMINOPHEN 65164383543 No Longer Active Tu Landeros MD Active BACTRIM DS 800-160 MG TABS 1 po BID x 7 days SULFAMETHOXAZOLE-TRIMETHOPRIM 15620411949 No Longer Active Tu Landeros MD Active VENLAFAXINE HCL 75 MG TABS 1 po BID VENLAFAXINE HCL 18389872986 No Longer Active Elvira Cervantes MD PhD Active TRAMADOL HCL 50 MG TABS 1 tablets every 6 hours as needed for pain TRAMADOL HCL 13753757700 No Longer Active Tu Landeros MD Active ACCU-CHEK FASTCLIX LANCETS MISC Use to check bloodsugar three times daily as needed LANCETS 22659066188 No Longer Active Tu Landeros MD Active ACCU-CHEK KEYONA PLUS STRP Use for testing bloodsugars three times daily as needed GLUCOSE BLOOD 93224396797 No Longer Active Tu Landeros MD Active ACCU-CHEK KEYONA PLUS W/DEVICE KIT Use for testing bloodsugars three times daily as needed BLOOD GLUCOSE MONITORING SUPPL 19948970959 No Longer Active Tu Landeros MD Active SPIRONOLACTONE 25 MG TAB 0.5 tablet by mouth daily SPIRONOLACTONE 01560233079 No Longer Active Tu Landeros MD Active ALPRAZOLAM 0.5 MG TABS 1 tab every 6hrs as needed ALPRAZOLAM 38420794969 No Longer Active Tu Landeros MD Active AUGMENTIN 875-125 MG TAB 1 tab by mouth twice daily with food AMOXICILLIN-POT CLAVULANATE 21402206108 No Longer Active Tu Landeros MD Active PREDNISONE 20 MG TAB 2 tabs daily for 3 days, 1 tab daily for 3 days, 1/2 tab daily for 2 days PREDNISONE 67941402265 No Longer Active Tu Landeros MD Active XANAX 0.5 MG TABS 1 tablet every 6 hrs prn ALPRAZOLAM 19072891941 No Longer Active Tu Landeros MD Active PREDNISONE 20 MG TAB 2 tabs daily for 3 days, 1 tab daily for 3 days, 1/2 tab daily for 2 days PREDNISONE 09969548599 No Longer Active Tu Landeros MD Active TRIAMCINOLONE ACETONIDE 0.1 % OINT Apply to affected areas TID for up to 2 weeks TRIAMCINOLONE ACETONIDE 32288639981 No Longer Active Tu Landeros MD Active LORTAB 5 5-500 MG TABS 1/2 to 1 tablet by mouth every 4 hours as needed for pain HYDROCODONE-ACETAMINOPHEN 28142537453 No Longer Active Tu Landeros MD Active MULTIVITAMINS TABS Take one by mouth daily MULTIPLE VITAMIN 90356638579 No Longer Active Tu Landeros MD Active MELATONIN 5 MG TABS Take one by mouth daily MELATONIN 77493060383 No Longer Active Tu Landeros MD Active SOMA 350 MG TAB 1 po q 6 hours prn spasm CARISOPRODOL 41999694732 No Longer Active Tu Landeros MD Active MECLIZINE HCL 25 MG CHEW TAB 1 four times a day as needed for dizziness 08/05 MECLIZINE HCL 41375998309 No Longer Active Fab Morales DO Active ANGEL BREEZE 2 TEST DISK test tid prn GLUCOSE BLOOD 31150418468 No Longer Active Negra Scott RN Active DICLOFENAC SODIUM 50 MG TBEC 1 tablet by mouth three times a day as needed DICLOFENAC SODIUM 44435230696 Active Tu Landeros MD Active REGLAN 10 MG TAB 1 po TID PRN [place] METOCLOPRAMIDE HCL 26223155565 No Longer Active Tu Landeros MD Active METFORMIN HCL 500 MG TABS 1 PO BID METFORMIN HCL 84569883275 No Longer Active Tu Landeros MD Active AMBIEN 10 MG TAB 1 tab by mouth at bedtime as needed for sleep ZOLPIDEM TARTRATE 87252519719 No Longer Active Tu Landeros MD Active FLUOXETINE HCL 40 MG CAPS 1 po q day FLUOXETINE HCL 33311290598 No Longer Active Mayra [place] Active FISH OIL 1000 MG CAPS Take one by mouth daily OMEGA-3 FATTY ACIDS 89378230167 Active Tu Landeros MD Active GLUCOSAMINE 500 MG TABS Take 2 tab po qd GLUCOSAMINE 26711920669 Active Tu Landeros MD Active TRILIPIX 135 MG CPDR 1 po qd CHOLINE FENOFIBRATE 23230623207 No Longer Active Tu Landeros MD Active ASPIRIN 81 MG CHEW TAB 1 tablet by mouth daily ASPIRIN 58106742296 Active Tu Landeros MD Active FUROSEMIDE 40 MG TAB 1 tablet by mouth daily FUROSEMIDE 28903932801 Active Tu Landeros MD Active REQUIP 2 MG TABS Take one tablet at bedtime prn ROPINIROLE HCL 57421117646 Active Tu Landeros MD Active KLOR-CON 10 10 MEQ CR-TABS TAKE 2 TABS DAILY POTASSIUM CHLORIDE 88398231303 Active Tu Landeros MD Active AMBIEN 10 MG TAB 1 tab by mouth at bedtime as needed for sleep AMBIEN 10 MG TAB 267830 ZOLPIDEM TARTRATE Inactive METFORMIN HCL 500 MG TABS 1 PO BID METFORMIN HCL 500 MG TABS 016114 METFORMIN HCL Inactive REGLAN 10 MG TAB 1 po TID PRN [place] REGLAN 10 MG TAB 643223 METOCLOPRAMIDE HCL Inactive MECLIZINE HCL 25 MG CHEW TAB 1 four times a day as needed for dizziness 08/05 MECLIZINE HCL 25 MG CHEW TAB 885328 MECLIZINE HCL Inactive SOMA 350 MG TAB 1 po q 6 hours prn spasm SOMA 350 MG TAB 987530 CARISOPRODOL Inactive MELATONIN 5 MG TABS Take one by mouth daily MELATONIN 5 MG TABS 061228 MELATONIN Inactive MULTIVITAMINS TABS Take one by mouth daily MULTIVITAMINS TABS MULTIPLE VITAMIN Inactive LORTAB 5 5-500 MG TABS 1/2 to 1 tablet by mouth every 4 hours as needed for pain LORTAB 5 5-500 MG TABS HYDROCODONE- ACETAMINOPHEN Inactive XANAX 0.5 MG TABS 1 tablet every 6 hrs prn XANAX 0.5 MG TABS 714940 ALPRAZOLAM Inactive AUGMENTIN 875-125 MG TAB 1 tab by mouth twice daily with food AUGMENTIN 875-125 MG TAB 038485 AMOXICILLIN-POT CLAVULANATE Inactive ALPRAZOLAM 0.5 MG TABS 1 tab every 6hrs as needed ALPRAZOLAM 0.5 MG TABS 841189 ALPRAZOLAM Inactive SPIRONOLACTONE 25 MG TAB 0.5 tablet by mouth daily SPIRONOLACTONE 25 MG TAB 789361 SPIRONOLACTONE Inactive ACCU-CHEK KEYONA PLUS W/DEVICE KIT Use for testing bloodsugars three times daily as needed ACCU-CHEK KEYONA PLUS W/DEVICE KIT BLOOD GLUCOSE MONITORING SUPPL Inactive ACCU-CHEK KEYONA PLUS STRP Use for testing bloodsugars three times daily as needed ACCU-CHEK KEYONA PLUS STRP GLUCOSE BLOOD Inactive ACCU-CHEK FASTCLIX LANCETS MISC Use to check bloodsugar three times daily as needed ACCU-CHEK FASTCLIX LANCETS MISC 11733930770 LANCETS Inactive TRAMADOL HCL 50 MG TABS 1 tablets every 6 hours as needed for pain TRAMADOL HCL 50 MG TABS 658266 TRAMADOL HCL Inactive VENLAFAXINE HCL 75 MG TABS 1 po BID VENLAFAXINE HCL 75 MG TABS 968885 VENLAFAXINE HCL Inactive HYDROCODONE-ACETAMINOPHEN 5-500 MG TABS take one po Q 4-6 hours prn HYDROCODONE-ACETAMINOPHEN 5-500 MG TABS HYDROCODONE- ACETAMINOPHEN Inactive LORTAB 5 5-500 MG TABS 1/2 to 1 tablet by mouth every 4 hours as needed for pain LORTAB 5 5-500 MG TABS HYDROCODONE- ACETAMINOPHEN Inactive LAMISIL 250 MG TAB 1 po qd LAMISIL 250 MG TAB 808059 TERBINAFINE HCL Inactive VENLAFAXINE HCL 37.5 MG TABS 1 po BID VENLAFAXINE HCL 37.5 MG TABS 380177 VENLAFAXINE HCL Inactive CIPRO 500 MG TAB 1 tablet by mouth twice daily CIPRO 500 MG TAB 307223 CIPROFLOXACIN HCL Inactive VENLAFAXINE HCL 75 MG TABS 1 po BID VENLAFAXINE HCL 75 MG TABS 697769 VENLAFAXINE HCL Inactive SIMVASTATIN 40 MG TABS Take one by mouth daily SIMVASTATIN 40 MG TABS 655006 SIMVASTATIN Inactive OMEPRAZOLE 20 MG TBEC 1 PO 30 MIN BEFORE 1ST MEAL OMEPRAZOLE 20 MG TBEC 393204 OMEPRAZOLE Inactive FENOFIBRATE 145 MG TABS 1 po qd FENOFIBRATE 145 MG TABS 528027 FENOFIBRATE Inactive BACTRIM DS 800-160 MG TABS 1 bid x 14 day start 09-28-13 BACTRIM DS 800-160 MG TABS SULFAMETHOXAZOLE-TRIMETHOPRIM Inactive B-12 100 MCG TABS Take one by mouth daily B-12 100 MCG TABS CYANOCOBALAMIN Inactive GABAPENTIN 100 MG CAPS 1 po bid GABAPENTIN 100 MG CAPS 892030 GABAPENTIN Inactive HYDROCODONE-ACETAMINOPHEN 5-325 MG TABS 1 tab by mouth every 6 hours as needed for pain HYDROCODONE-ACETAMINOPHEN 5-325 MG TABS 888219 HYDROCODONE-ACETAMINOPHEN Inactive CIPRO 500 MG TABS 1 bid x 14 days start 09-28-13 CIPRO 500 MG TABS 909498 CIPROFLOXACIN HCL Inactive ALIGN 4 MG CAPS [...] 2 weeks TRIAMCINOLONE ACETONIDE 0.1 % OINT 0190522 TRIAMCINOLONE ACETONIDE Inactive PREDNISONE 20 MG TAB 2 tabs daily for 3 days, 1 tab daily for 3 days, 1/2 tab daily for 2 days PREDNISONE 20 MG TAB 406040 PREDNISONE Inactive PREDNISONE 20 MG TAB 2 tabs daily for 3 days, 1 tab daily for 3 days, 1/2 tab daily for 2 days PREDNISONE 20 MG TAB 559919 PREDNISONE Inactive BACTRIM DS 800-160 MG TABS 1 po BID x 7 days BACTRIM DS 800-160 MG TABS SULFAMETHOXAZOLE-TRIMETHOPRIM Inactive Immunizations Vaccine Administration Date Value Standard Description Seasonal influenza vaccine, injectable, containing preservative, for > 3 years old (Afluria, FluLaval, Fluzone, Fluvirin, Fluarix, Agriflu(>=18 yo)) Fluzone (>3 yrs.) [[id number]] Influenza, seasonal, injectable influenza immunization (Flu Vax) has been administered 02/22/2012 influenza virus vaccine, unspecified formulation Seasonal influenza vaccine, injectable, containing preservative, for > 3 years old (Afluria, FluLaval, Fluzone, Fluvirin, Fluarix, Agriflu(>=18 yo)) Fluzone (>3 yrs.) [[id number]] Influenza, seasonal, injectable Vital Signs Date Name [...] CBC - Chemistry sodium, serum 143 mmol/L 137-009 4736/03/10 potassium, serum 4.9 mmol/L 3.5-5.2 chloride, serum [...] HGBA1C - Chemistry sodium, serum 144 mmol/L 093-426 1830/04/16 potassium, serum 4.2 mmol/L 3.5-5.2 chloride, serum [...] 0.20 mg/dL 0.00-1.00 cholesterol, serum 133 mg/dL 753-841 1714/04/16 triglyceride, serum, fasting 142 mg/dL 30-200 HDL [...] mg/dL Encounters Code Encounter Date Provider Facility CPT-24348 Level 4 Est. Patient 14:38:57 CDT Tu Landeros MD [facility] CPT-94433 Level 4 Est. 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 Patient 09:45:25 CDT Tu Landeros MD [facility] CPT-57126 Level 4 Est. 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 Patient 14:09:06 CDT Tu Landeros MD [facility] CPT-92082 Level 3 Est. Patient 13:36:54 CDT Tu Landeros MD [facility] CPT-07974 Level 3 Est. Patient 08:59:14 CDT Tu Landeros MD [facility] CPT-01124 Level 3 Est. Patient 13:48:35 CDT Fab Morales DO [facility] CPT-77370 Level 4 Est. Patient 10:05:48 CDT Tu Landeros MD [facility] CPT-57478 Level 3 Est. Patient 13:38:42 CDT Marek BANKS [facility] CPT-22905 Level 5 Est. Patient 08:08:39 CDT Jerrica FRANCIS [facility] CPT-68624 Level 4 Est. Patient 14:23:38 CDT Tu Landeros MD [facility] CPT-55084 Level 3 Est. Patient 11:44:04 CDT Tu Landeros MD [facility] CPT-54195 Level 3 Est. Patient 11:03:20 R[employer]AL SALES ASSOCIATE Tu Landeros MD [facility] CPT-06789 Level 3 Est. 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 Patient 12:42:49 CDT Tu Landeros MD [facility] CPT-15643 Level 3 Est. Patient 11:52:06 CDT Tu Landeros MD [facility] CPT-16794 Level 3 Est. Patient 13:58:11 CDT Tu Landeros MD [facility] CPT-10277 Level 3 Est. Patient 17:50:07 CDT Fab Morales DO [facility] CPT-91291 Level 3 Est. Patient 12:06:29 CDT Elvira Cervantes MD PhD [facility] CPT-04466 Level 3 Est. Patient 15:50:32 CDT Tu Landeros MD [facility] CPT-22903 Level 4 Est. Patient 16:08:29 CDT Tu Landeros MD [facility] CPT-52439 Level 3 Est. Patient 16:04:19 CDT Tu Landeros MD [facility] CPT-15571 Level 3 Est. Patient 11:22:30 R[employer]AL SALES ASSOCIATE Tu Landeros MD [facility] CPT-10642 Level 4 Est. 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 Tu Landeros MD [facility] Procedures Code Procedure Name Date Entry Date Standard Description CPT-JTINJ Asp/Joint Injection 15:51:27 [employer]AL SALES ASSOCIATE CPT-OV Office Visit 15:52:02 [employer]AL SALES ASSOCIATE CPT-OV Office Visit 15:45:11 CDT CPT-000 Give Zostavax 14:09:06 CDT CPT-20927 Administration single or combination vaccine inc oral 15 :19:04 CDT CPT-66983 Zoster Vaccine (Zostavax) 15:19:04 CDT CPT-35228 Administration single or combination vaccine inc oral 20 :51:03 CDT CPT-36979 Influenza split virus > age 3 20:51:03 CDT CPT-41692 No Charge Offi Visit 14:52:03 CDT CPT-OV Office Visit 14:57:43 CDT CPT-OV Office Visit 15:22:32 CDT CPT-22103 Administration single or combination vaccine inc oral 11 :33:15 CDT CPT-43835 Influenza split virus > age 3 11:33:15 CDT
--- OUTSIDE RECORDS SUMMARY | 2018-04-25 20:16 | XMS REPORT | Clinical Summary ---
Author Author Admin, SACHI Clemons [facility] Address Unknown Phone Unavailable Allergies, Adverse [...] sugar twice daily dx: 250.00 LANCET DEVICES 02156580223 Active Tu Landeros MD Active TRUEDRAW LANCING DEVICE MISC Test twice a day dx 250.0 LANCET DEVICES 92865422131 Active Tu Landeros MD Active TRUERESULT BLOOD GLUCOSE W/DEVICE KIT test blood sugar twice daily dx 250.00 BLOOD GLUCOSE MONITORING SUPPL 85652632384 Active Tu Landeros MD Active TRUETEST TEST INVITR STRP test blood sugar twice daily. DX 250.0 GLUCOSE BLOOD 15458902894 Active Tu Landeros MD Active EMBRACE BLOOD GLUCOSE TEST STRP test blood sugar twice daily DX 250.0 2014 GLUCOSE BLOOD 30029564796 No Longer Active Tu Landeros MD Active TRUETEST TEST STRP test blood sugar three times daily dx: 250.00 GLUCOSE BLOOD 74044545519 No Longer Active Suzebianca VOGEL Active TRUERESULT BLOOD GLUCOSE W/DEVICE KIT use to test blood sugar tid dx: 250.00 BLOOD GLUCOSE MONITORING SUPPL 79264806931 No Longer Active Suze Corey RMA Active ALIGN 4 MG CAPS 1 tid PROBIOTIC PRODUCT 84148338461 No Longer Active Shaun Sy MD Active CIPRO 500 MG TABS 1 bid x 14 days start 5-01-04 CIPROFLOXACIN HCL 16880141075 No Longer Active Shaun Sy MD Active TRAMADOL HCL 50 MG TABS 1-2 tablets every 6 hours as needed for pain TRAMADOL HCL 54911052692 Active Tu Landeros MD Active HYDROCODONE-ACETAMINOPHEN 5-325 MG TABS 1 tab by mouth every 6 hours as needed for pain HYDROCODONE-ACETAMINOPHEN 19629176901 No Longer Active Tu Landeros MD Active OMEPRAZOLE 20 MG CPDR 1 po q a.m. OMEPRAZOLE 03395055934 Active Tu Landeros MD Active GABAPENTIN 100 MG CAPS 1 po bid GABAPENTIN 84807090221 No Longer Active Tu Landeros MD Active B-12 100 MCG TABS Take one by mouth daily CYANOCOBALAMIN 04077071797 No Longer Active Tu Landeros MD Active GABAPENTIN 100 MG CAPS by mouth twice a day GABAPENTIN 16472735349 Active Tu Landeros MD Active BACTRIM DS 800-160 MG TABS 1 bid x 14 day start 09-28-13 SULFAMETHOXAZOLE-TRIMETHOPRIM 84545091914 No Longer Active Tu Landeros MD Active SIMVASTATIN 40 MG TABS 1 tab daily at bedtime SIMVASTATIN 01732677024 Active Tu Landeros MD Active CARVEDILOL 12.5 MG TABS 1 po BID CARVEDILOL 36938339688 Active Tu Landeros MD Active SUPER B COMPLEX/VITAMIN C TABS 1 qd B COMPLEX-C 03017050449 Active JASPREET Perez Active TRILIPIX 135 MG CPDR 1 q hs CHOLINE FENOFIBRATE 69593137111 Active Tu Landeros MD Active FENOFIBRATE 145 MG TABS 1 po qd FENOFIBRATE 43428950814 No Longer Active JASPREET Perez Active OMEPRAZOLE 20 MG TBEC 1 PO 30 MIN BEFORE 1ST MEAL OMEPRAZOLE 40484433471 No Longer Active JASPREET Perez Active SIMVASTATIN 40 MG TABS Take one by mouth daily SIMVASTATIN 68568519482 No Longer Active JASPREET Perez Active VENLAFAXINE HCL 37.5 MG TABS 1 bid VENLAFAXINE HCL 05253238675 Active Tu Landeros MD Active VENLAFAXINE HCL 75 MG TABS 1 po BID VENLAFAXINE HCL 53555391161 No Longer Active JASPREET Perez Active METFORMIN HCL 500 MG TB24 1.5 po BID METFORMIN HCL 07810877555 Active Tu Landeros MD Active CIPRO 500 MG TAB 1 tablet by mouth twice daily CIPROFLOXACIN HCL 31960330812 No Longer Active Tu Landeros MD Active VENLAFAXINE HCL 37.5 MG TABS 1 po BID VENLAFAXINE HCL 99811425903 No Longer Active Suzebianca Nicole RMA Active CVS STOOL SOFTENER 100 MG CAPS 1 tab daily DOCUSATE SODIUM 36226165674 Active Tu Landeros MD Active LAMISIL 250 MG TAB 1 po qd TERBINAFINE HCL 81658490689 No Longer Active Tu Landeros MD Active LORTAB 5 5-500 MG TABS 1/2 to 1 tablet by mouth every 4 hours as needed for pain HYDROCODONE-ACETAMINOPHEN 18215997472 No Longer Active Tu Landeros MD Active ENALAPRIL MALEATE 20 MG TABS 1.5 po qd ENALAPRIL MALEATE 36038375683 Active Tu Landeros MD Active HYDROCODONE-ACETAMINOPHEN 5-500 MG TABS take one po Q 4-6 hours prn HYDROCODONE-ACETAMINOPHEN 62894679267 No Longer Active Tu Landeros MD Active BACTRIM DS 800-160 MG TABS 1 po BID x 7 days SULFAMETHOXAZOLE-TRIMETHOPRIM 25900068120 No Longer Active Tu Landeros MD Active VENLAFAXINE HCL 75 MG TABS 1 po BID VENLAFAXINE HCL 29915760031 No Longer Active Elvira Cervantes MD PhD Active TRAMADOL HCL 50 MG TABS 1 tablets every 6 hours as needed for pain TRAMADOL HCL 97751301971 No Longer Active Tu Landeros MD Active ACCU-CHEK FASTCLIX LANCETS MISC Use to check bloodsugar three times daily as needed LANCETS 49917096105 No Longer Active Tu Landeros MD Active ACCU-CHEK KEYONA PLUS STRP Use for testing bloodsugars three times daily as needed GLUCOSE BLOOD 01411912794 No Longer Active Tu Landeros MD Active ACCU-CHEK KEYONA PLUS W/DEVICE KIT Use for testing bloodsugars three times daily as needed BLOOD GLUCOSE MONITORING SUPPL 76888928428 No Longer Active Tu Landeros MD Active SPIRONOLACTONE 25 MG TAB 0.5 tablet by mouth daily SPIRONOLACTONE 38915840933 No Longer Active Tu Landeros MD Active ALPRAZOLAM 0.5 MG TABS 1 tab every 6hrs as needed ALPRAZOLAM 85588362509 No Longer Active Tu Landeros MD Active AUGMENTIN 875-125 MG TAB 1 tab by mouth twice daily with food AMOXICILLIN-POT CLAVULANATE 03314598195 No Longer Active Tu Landeros MD Active PREDNISONE 20 MG TAB 2 tabs daily for 3 days, 1 tab daily for 3 days, 1/2 tab daily for 2 days PREDNISONE 17657597812 No Longer Active Tu Landeros MD Active XANAX 0.5 MG TABS 1 tablet every 6 hrs prn ALPRAZOLAM 02873879386 No Longer Active Tu Landeros MD Active PREDNISONE 20 MG TAB 2 tabs daily for 3 days, 1 tab daily for 3 days, 1/2 tab daily for 2 days PREDNISONE 98455720065 No Longer Active Tu Landeros MD Active TRIAMCINOLONE ACETONIDE 0.1 % OINT Apply to affected areas TID for up to 2 weeks TRIAMCINOLONE ACETONIDE 76827478298 No Longer Active Tu Landeros MD Active LORTAB 5 5-500 MG TABS 1/2 to 1 tablet by mouth every 4 hours as needed for pain HYDROCODONE-ACETAMINOPHEN 75568605019 No Longer Active Tu Landeros MD Active MULTIVITAMINS TABS Take one by mouth daily MULTIPLE VITAMIN 28208433414 No Longer Active Tu Landeros MD Active MELATONIN 5 MG TABS Take one by mouth daily MELATONIN 23394116426 No Longer Active Tu Landeros MD Active SOMA 350 MG TAB 1 po q 6 hours prn spasm CARISOPRODOL 53489074946 No Longer Active Tu Landeros MD Active MECLIZINE HCL 25 MG CHEW TAB 1 four times a day as needed for dizziness 08/05 MECLIZINE HCL 48310503214 No Longer Active Fab Morales DO Active ANGEL BREEZE 2 TEST DISK test tid prn GLUCOSE BLOOD 00384522903 No Longer Active Negra Scott RN Active DICLOFENAC SODIUM 50 MG TBEC 1 tablet by mouth three times a day as needed DICLOFENAC SODIUM 65321810887 Active Tu Landeros MD Active REGLAN 10 MG TAB 1 po TID PRN Nausea METOCLOPRAMIDE HCL 57978642091 No Longer Active Tu Landeros MD Active METFORMIN HCL 500 MG TABS 1 PO BID METFORMIN HCL 63678975717 No Longer Active Tu Landeros MD Active AMBIEN 10 MG TAB 1 tab by mouth at bedtime as needed for sleep ZOLPIDEM TARTRATE 49076360591 No Longer Active Tu Landeros MD Active FLUOXETINE HCL 40 MG CAPS 1 po q day FLUOXETINE HCL 73159920754 No Longer Active Mayra [employer] Active FISH OIL 1000 MG CAPS Take one by mouth daily OMEGA-3 FATTY ACIDS 75444520743 Active Tu Landeros MD Active GLUCOSAMINE 500 MG TABS Take 2 tab po qd GLUCOSAMINE 03524493260 Active Tu Landeros MD Active TRILIPIX 135 MG CPDR 1 po qd CHOLINE FENOFIBRATE 39400105260 No Longer Active Tu Landeros MD Active ASPIRIN 81 MG CHEW TAB 1 tablet by mouth daily ASPIRIN 03913364210 Active Tu Landeros MD Active FUROSEMIDE 40 MG TAB 1 tablet by mouth daily FUROSEMIDE 43844157071 Active Tu Landeros MD Active REQUIP 2 MG TABS Take one tablet at bedtime prn ROPINIROLE HCL 83074343441 Active Tu Landeros MD Active KLOR-CON 10 10 MEQ CR-TABS TAKE 2 TABS DAILY POTASSIUM CHLORIDE 66308005934 Active Tu Landeros MD Active AMBIEN 10 MG TAB 1 tab by mouth at bedtime as needed for sleep AMBIEN 10 MG TAB 879766 ZOLPIDEM TARTRATE Inactive METFORMIN HCL 500 MG TABS 1 PO BID METFORMIN HCL 500 MG TABS 173079 METFORMIN HCL Inactive REGLAN 10 MG TAB 1 po TID PRN Nausea REGLAN 10 MG TAB 661652 METOCLOPRAMIDE HCL Inactive MECLIZINE HCL 25 MG CHEW TAB 1 four times a day as needed for dizziness 08/05 MECLIZINE HCL 25 MG CHEW TAB 401286 MECLIZINE HCL Inactive SOMA 350 MG TAB 1 po q 6 hours prn spasm SOMA 350 MG TAB 472919 CARISOPRODOL Inactive MELATONIN 5 MG TABS Take one by mouth daily MELATONIN 5 MG TABS 651622 MELATONIN Inactive MULTIVITAMINS TABS Take one by mouth daily MULTIVITAMINS TABS MULTIPLE VITAMIN Inactive LORTAB 5 5-500 MG TABS 1/2 to 1 tablet by mouth every 4 hours as needed for pain LORTAB 5 5-500 MG TABS HYDROCODONE- ACETAMINOPHEN Inactive XANAX 0.5 MG TABS 1 tablet every 6 hrs prn XANAX 0.5 MG TABS 289781 ALPRAZOLAM Inactive AUGMENTIN 875-125 MG TAB 1 tab by mouth twice daily with food AUGMENTIN 875-125 MG TAB 873367 AMOXICILLIN-POT CLAVULANATE Inactive ALPRAZOLAM 0.5 MG TABS 1 tab every 6hrs as needed ALPRAZOLAM 0.5 MG TABS 710364 ALPRAZOLAM Inactive SPIRONOLACTONE 25 MG TAB 0.5 tablet by mouth daily SPIRONOLACTONE 25 MG TAB 931808 SPIRONOLACTONE Inactive ACCU-CHEK KEYONA PLUS W/DEVICE KIT Use for testing bloodsugars three times daily as needed ACCU-CHEK KEYONA PLUS W/DEVICE KIT BLOOD GLUCOSE MONITORING SUPPL Inactive ACCU-CHEK KEYONA PLUS STRP Use for testing bloodsugars three times daily as needed ACCU-CHEK KEYONA PLUS STRP GLUCOSE BLOOD Inactive ACCU-CHEK FASTCLIX LANCETS MISC Use to check bloodsugar three times daily as needed ACCU-CHEK FASTCLIX LANCETS MISC 58279972492 LANCETS Inactive TRAMADOL HCL 50 MG TABS 1 tablets every 6 hours as needed for pain TRAMADOL HCL 50 MG TABS 637276 TRAMADOL HCL Inactive VENLAFAXINE HCL 75 MG TABS 1 po BID VENLAFAXINE HCL 75 MG TABS 304508 VENLAFAXINE HCL Inactive HYDROCODONE-ACETAMINOPHEN 5-500 MG TABS take one po Q 4-6 hours prn HYDROCODONE-ACETAMINOPHEN 5-500 MG TABS HYDROCODONE- ACETAMINOPHEN Inactive LORTAB 5 5-500 MG TABS 1/2 to 1 tablet by mouth every 4 hours as needed for pain LORTAB 5 5-500 MG TABS HYDROCODONE- ACETAMINOPHEN Inactive LAMISIL 250 MG TAB 1 po qd LAMISIL 250 MG TAB 254956 TERBINAFINE HCL Inactive VENLAFAXINE HCL 37.5 MG TABS 1 po BID VENLAFAXINE HCL 37.5 MG TABS 104898 VENLAFAXINE HCL Inactive CIPRO 500 MG TAB 1 tablet by mouth twice daily CIPRO 500 MG TAB 917949 CIPROFLOXACIN HCL Inactive VENLAFAXINE HCL 75 MG TABS 1 po BID VENLAFAXINE HCL 75 MG TABS 712239 VENLAFAXINE HCL Inactive SIMVASTATIN 40 MG TABS Take one by mouth daily SIMVASTATIN 40 MG TABS 010741 SIMVASTATIN Inactive OMEPRAZOLE 20 MG TBEC 1 PO 30 MIN BEFORE 1ST MEAL OMEPRAZOLE 20 MG TBEC 128507 OMEPRAZOLE Inactive FENOFIBRATE 145 MG TABS 1 po qd FENOFIBRATE 145 MG TABS 485551 FENOFIBRATE Inactive BACTRIM DS 800-160 MG TABS 1 bid x 14 day start 09-28-13 BACTRIM DS 800-160 MG TABS SULFAMETHOXAZOLE-TRIMETHOPRIM Inactive B-12 100 MCG TABS Take one by mouth daily B-12 100 MCG TABS CYANOCOBALAMIN Inactive GABAPENTIN 100 MG CAPS 1 po bid GABAPENTIN 100 MG CAPS 577110 GABAPENTIN Inactive HYDROCODONE-ACETAMINOPHEN 5-325 MG TABS 1 tab by mouth every 6 hours as needed for pain HYDROCODONE-ACETAMINOPHEN 5-325 MG TABS 206400 HYDROCODONE-ACETAMINOPHEN Inactive CIPRO 500 MG TABS 1 bid x 14 days start 09-28-13 CIPRO 500 MG TABS 681035 CIPROFLOXACIN HCL Inactive ALIGN 4 MG CAPS [...] 2 weeks TRIAMCINOLONE ACETONIDE 0.1 % OINT 9691470 TRIAMCINOLONE ACETONIDE Inactive PREDNISONE 20 MG TAB 2 tabs daily for 3 days, 1 tab daily for 3 days, 1/2 tab daily for 2 days PREDNISONE 20 MG TAB 693277 PREDNISONE Inactive PREDNISONE 20 MG TAB 2 tabs daily for 3 days, 1 tab daily for 3 days, 1/2 tab daily for 2 days PREDNISONE 20 MG TAB 239959 PREDNISONE Inactive BACTRIM DS 800-160 MG TABS 1 po BID x 7 days BACTRIM DS 800-160 MG TABS SULFAMETHOXAZOLE-TRIMETHOPRIM Inactive Immunizations Vaccine Administration Date Value Standard Description Seasonal influenza vaccine, injectable, containing preservative, for > 3 years old (Afluria, FluLaval, Fluzone, Fluvirin, Fluarix, Agriflu(>=18 yo)) Fluzone (>3 yrs.) [[id number]] Influenza, seasonal, injectable influenza immunization (Flu Vax) has been administered 02/22/2012 influenza virus vaccine, unspecified formulation Seasonal influenza vaccine, injectable, containing preservative, for > 3 years old (Afluria, FluLaval, Fluzone, Fluvirin, Fluarix, Agriflu(>=18 yo)) Fluzone (>3 yrs.) [[id number]] Influenza, seasonal, injectable Vital Signs Date Name [...] CBC - Chemistry sodium, serum 143 mmol/L 681-843 0198/03/10 potassium, serum 4.9 mmol/L 3.5-5.2 chloride, serum [...] HGBA1C - Chemistry sodium, serum 144 mmol/L 568-345 5920/04/16 potassium, serum 4.2 mmol/L 3.5-5.2 chloride, serum [...] 0.20 mg/dL 0.00-1.00 cholesterol, serum 133 mg/dL 718-706 3864/04/16 triglyceride, serum, fasting 142 mg/dL 30-200 HDL [...] mg/dL Encounters Code Encounter Date Provider Facility CPT-57853 Level 4 Est. Patient 14:38:57 CDT Tu Landeros MD [facility] CPT-33110 Level 4 Est. Patient 14:27:39 CLAMPER Tu Landeros MD [facility] CPT-92696 Level 4 Est. Patient 09:45:25 CDT Tu Landeros MD [facility] CPT-67128 Level 4 Est. Patient 09:05:20 CLAMPER Tu Landeros MD [facility] CPT-22905 Level 4 Est. Patient 14:09:06 CDT Tu Landeros MD [facility] CPT-98927 Level 3 Est. Patient 13:36:54 CDT Tu Landeros MD [facility] CPT-65507 Level 3 Est. Patient 08:59:14 CDT Tu Landeros MD [facility] CPT-55874 Level 3 Est. Patient 13:48:35 CDT Fab Morales DO [facility] CPT-20497 Level 4 Est. Patient 10:05:48 CDT Tu Landeros MD [facility] CPT-48932 Level 3 Est. Patient 13:38:42 CDT Marek BANKS [facility] CPT-25350 Level 5 Est. Patient 08:08:39 CDT Jerrica FRANCIS [facility] CPT-32576 Level 4 Est. Patient 14:23:38 CDT Tu Landeros MD [facility] CPT-69071 Level 3 Est. Patient 11:44:04 CDT Tu Landeros MD [facility] CPT-93117 Level 3 Est. Patient 11:03:20 CLAMPER Tu Landeros MD [facility] CPT-81643 Level 3 Est. Patient 11:03:14 CLAMPER Tu Landeros MD [facility] CPT-96518 Level 3 Est. Patient 12:42:49 CDT Tu Landeros MD [facility] CPT-65538 Level 3 Est. Patient 11:52:06 CDT Tu Landeros MD [facility] CPT-15127 Level 3 Est. Patient 13:58:11 CDT Tu Landeros MD [facility] CPT-69976 Level 3 Est. Patient 17:50:07 CDT Fab Morales DO [facility] CPT-91750 Level 3 Est. Patient 12:06:29 CDT Elvira Cervantes MD PhD [facility] CPT-32159 Level 3 Est. Patient 15:50:32 CDT Tu Landeros MD [facility] CPT-48852 Level 4 Est. Patient 16:08:29 CDT Tu Landeros MD [facility] CPT-10993 Level 3 Est. Patient 16:04:19 CDT Tu Landeros MD [facility] CPT-18887 Level 3 Est. Patient 11:22:30 CLAMPER Tu Landeros MD [facility] CPT-92756 Level 4 Est. Patient 16:24:02 CLAMPER Tu Landeros MD [facility] CPT-63445 Level 3 Est. Patient 17:21:23 CLAMPER Tu Landeros MD [facility] Procedures Code Procedure Name Date Entry Date Standard Description CPT-JTINJ Asp/Joint Injection 15:51:27 CLAMPER CPT-OV Office Visit 15:52:02 CLAMPER CPT-OV Office Visit 15:45:11 CDT CPT-000 Give Zostavax 14:09:06 CDT CPT-75508 Administration single or combination vaccine inc oral 15 :19:04 CDT CPT-64313 Zoster Vaccine (Zostavax) 15:19:04 CDT CPT-27203 Administration single or combination vaccine inc oral 20 :51:03 CDT CPT-03639 Influenza split virus > age 3 20:51:03 CDT CPT-90408 No Charge Offi Visit 14:52:03 CDT CPT-OV Office Visit 14:57:43 CDT CPT-OV Office Visit 15:22:32 CDT CPT-24525 Administration single or combination vaccine inc oral 11 :33:15 CDT CPT-98449 Influenza split virus > age 3 11:33:15 CDT
--- OUTSIDE RECORDS SUMMARY | 2018-04-25 20:16 | XMS REPORT | Continuity of Care Document ---
Author Author [facility] Address Unknown Phone Unavailable Allergies Active Description Code Type Severity Reaction Onset Reported/Identified Relationship to Patient Clinical Status Yes Ambien 9128 Drug Allergy N/A N/A Yes Doxycycline 2748 Drug Allergy N /A ITCHING Yes KEFLEX Drug Allergy N/A ITCHING Yes Sulindac 2386 Drug Allergy N/A ITCHING Yes Tricor 7081 Drug Allergy N/A itching-shortness of breathe Yes Vibra-Tabs 5765 Drug Allergy N/ A itching Yes Ambien Drug N/A N/ A Yes doxycycline Drug N/A N/A Yes glimepiride Drug N/A N/A Yes Keflex Drug N/A N/ A Yes sulindac Drug N/A N/A Yes TriCor Drug N/A N/ A Yes AMBIEN SEVERE OTHER Yes DOXYCYCLINE CALCIUM MODERATE ITCHING Yes DOXYCYCLINE CALCIUM MODERATE UNKNOWN Yes KEFLEX MODERATE ITCHING Yes SULINDAC MILD ITCHING Yes TRICOR MODERATE ITCHING Medications Medication Packaging Start Date Stop Date Route Dosage Sig LACTATED RINGERS 1000CC IV BAG INJ ml 03/29/2018 04/05/2018 CONTINUOUSEVERY 0 Hour Problems Date Dx Coded Attending Type Code Diagnosis Diagnosed By 12/20/2006 D 250.00 DM2/NOS UNCOMP NSU 12/20/2006 D 278.00 OBESITY, UNSPECIFIED 12/20/2006 D 311 DEPRESSIVE DISORDER NEC 12/20/2006 D 401.9 HYPERTENSION NOS 12/20/2006 D 427.9 CARDIAC DYSRHYTHMIA NOS 12/20/2006 D 715.90 OSTEOARTHROS NOS-UNSPEC 12/20/2006 D 785.1 PALPITATIONS 12/20/2006 D 786.05 SHORTNESS OF BREATH 12/20/2006 D 786.59 CHEST PAIN NEC 03/03/2017 Tu Sharma MD M79.676 Great toe pain 06/09/2017 Tu Sharma MD E11.69 Type 2 diabetes mellitus with other specified complication 06/09/2017 Tu Sharma MD E83.42 Hypomagnesemia 06/09/2017 Tu Sharma MD E66.01 Morbid obesity 08/10/2017 Tu Sharma MD J06.9 Upper respiratory infection, viral 11/05/2017 Tu Sharma MD Z68.43 Body Mass Index 50.0-59.9 Adult 12/02/2017 Tu Sharma MD M25.532 Wrist pain, left 12/07/2017 Tu Sharma MD E78.2 Mixed hyperlipidemia 12/07/2017 Tu Sharma MD Z00.00 Well Adult Exam Procedures There is no data. Results Test Result Range BMP - 03/22/18 12:17 Anion Gap 17 6-14 BUN 21 mg/dL 5-25 Calcium 10.0 mg/dL 8.3-10.4 Chloride 107 mmol/L 95-114 CO2 22 mEq/L 22-33 Creat 0.82 mg/dL 0.50-1.50 eGFR 70 mL/min/1.73m2 >59 Glucose 85 mg/dL 70-110 Osmo 293 280-295 Potassium 4.6 mmol/L 3.5-5.3 Sodium 141 mmol/L 134-148 EKG - 03/22/18 12:18 EKG Complete Surgical Pathology - 03/29/18 08:15 Surg Path Sent to [facility] Encounters ACCT No. Visit Date/Time Discharge Status Pt. Type Provider Facility Loc./Unit Complaint [id number] 11/22/2012 13:20:00 11/22/2012 13:20:00 DIS Outpatient CRISTOBAL ALONSO, [facility] [id number] 12/17/2006 18:15:00 Document Registration [id number] 12/15/2017 13:28:24 ACT Document Registration [id number] 12/08/2017 09:36:43 12/08/2017 23:59:59 DIS Outpatient TU SHARMA [facility] [id number] 07/11/2017 14:00:00 07/11/2017 23:59:59 CLS Emergency [facility] ED ed visit [id number] 06/09/2017 13:42:27 06/09/2017 23:59:59 CLS Preadmit TU SHARMA [facility] screening [id number] 02/04/2017 09:35:19 02/04/2017 23:59:59 DIS Outpatient TanivrFab [facility] [id number] 02/01/2017 10:45:00 02/01/2017 23:59:59 DIS Outpatient Tanvir, Fab [facility] [id number] 01/01/2017 13:33:49 01/01/2017 23:59:59 CLS Preadmit [facility] OT Right Shoulder [id number] 12/30/2016 08:38:13 12/30/2016 23:59:59 DIS Outpatient TanvirFab archer [facility] [id number] 12/24/2016 08:22:58 12/24/2016 23:59:59 DIS Outpatient Tanvir, [facility] rt shoulder pain [id number] 12/21/2016 10:18:35 12/21/2016 23:59:59 DIS Outpatient Tanvir, Fab [facility] [id number] 12/04/2016 10:02:39 12/04/2016 23:59:59 CLS Preadmit Tanvir, [facility] rt shoulder pain [id number] 06/08/2016 09:09:10 06/08/2016 23:59:59 CLS Preadmit TU SHARMA [facility] Screening [id number] 01/24/2017 02:00:37 Document Registration [id number] 12/21/2016 10:39:41 Document Registration [id number] 12/01/2016 02:01:06 Document Registration [id number] 03/21/2018 08:22:02 ACT Unknown Tu Sharma MD [id number] 03/29/2018 06:30:00 03/29/2018 09:23:00 DIS Outpatient Juan Jenkins [id number] 03/22/2018 11:54:00 03/22/2018 23:59:00 DIS Outpatient Juan Jenkins [id number] 01/13/2018 11:43:00 01/13/2018 23:59:00 DIS Outpatient YESSI COPELAND [id number] 03/28/2018 09:29:38 Document Registration [id number] 06/08/2017 08:50:16 06/08/2017 08: 50:16 DIS Outpatient [id number] 06/08/2017 08:50:14 06/08/2017 08: 50:14 DIS Outpatient [id number] 09/02/2015 11:14:00 09/02/2015 23:59:59 CLS Outpatient TU SHARMA [facility] RESP [id number] 01/29/2015 08:07:00 01/29/2015 08:07:00 DIS Outpatient EDITH [facility] [id number] 01/15/2014 07:19:00 01/15/2014 07:19:00 DIS Outpatient EDITH [facility]
--- NOTE | 2018-04-25 20:50 | Diagnostic Imaging Report ---
INDICATION: Chest pain CTA chest obtained with IV contrast bolus and axial slices and MIP reconstructions. The thoracic aorta shows no evidence of aneurysm or dissection. There is no CT evidence of pulmonary emboli. There are no enlarged mediastinal or hilar nodes. There are no enlarged axillary nodes. There is no pleural or pericardial fluid. Lung parenchymal windows demonstrate some minimal dependent atelectatic changes in the lung bases. The lungs are otherwise clear. There are diffuse degenerative changes in the thoracic spine. Visualized portions of the upper abdomen demonstrate diffuse fatty infiltration of the liver but no other significant finding. Clinical history states "rule out abnormal course of left circumflex coronary artery". The study was not performed with CT coronary protocol, therefore evaluation of coronary arteries is limited. Left coronary artery cannot be well seen. The left main coronary artery and LAD appear normal in appearance. IMPRESSION: Essentially negative CTA of the chest. There is some dependent atelectatic change in the lung bases. There is fatty infiltration of the liver. Evaluation of the coronary arteries is suboptimal on the study. Repeat study with coronary artery CTA protocol could be requested if clinically warranted. Dictated by: Dictated on workstation # [id number]
== END 2018-04-25 20:56 | disposition home or self-care (01) ==
LOC: CATH 11:32 → ICU 14:56 → CATH 20:56
PROVIDERS: ATTEND Internal Medicine Interventional Cardiology
DX: I10 Essential (primary) hypertension (principal); E78.5 Hyperlipidemia, unspecified; E11.9 Type 2 diabetes mellitus without complications; E66.01 Morbid (severe) obesity due to excess calories; M17.0 Bilateral primary osteoarthritis of knee; R06.02 Shortness of breath; Z79.82 Long term (current) use of aspirin; Z79.899 Other long term (current) drug therapy; Z79.84 Long term (current) use of oral hypoglycemic drugs; Z68.43 Body mass index [BMI] 50.0-59.9, adult
CPT/HCPCS: 36221; 36415; 71275; 80053; 80061; 85027; 85610; 85730; 87081; 90471; 90686; 93458